=== PATIENT | female | born 1935 | race Caucasian/White ===

== ENCOUNTER 2016-11-22 10:00 | Outpatient (CLI) | payer MEDICARE, MEDICAID ==
[~2016-11-22] VITALS: Ht 157.5 cm; Wt 74.1 kg
[~2016-11-22 10:00] MED LIST: ACET-461 PO; ACET-789 PO; ACHD5005 PO; ALBU2.5V52 INH; ALBU8.5H2 IH; ALBU8.5H4 IH; ALPR-557 PO; ALPR.5T PO; ALPR0.25 PO; ALPR0.5T72 PO; ALPR1TAB PO; ALPR2TAB PO; ALPR2TAB9 PO; AMIO400T5 PO; AMLO10TA4 PO; AMLO10TA82 PO; AMX500CIP PO; ARIP2TAB3 PO; ARIP5TAB13 PO; ASP81TEC PO; ASPI-808 PO; ASPI-875 PO; AZTH250C PO; Amiodarone Hcl PO; BACL10TA PO; BENZ200C25 PO; BPR75T PO; BUDE10.2 IH; BUDE6HFA IH; BUPR300T51 PO; CELEXA; CEPH500C PO; CIPR500T78 PO; CITA-105 PO; CITA20TA7 PO; CLON1TAB2 PO; CLON1TAB3; CLON1TAB3 PO; DOXY100C2 PO; DULO60CA6 PO; FLUT1DIS26 IH; FRSM20T PO; FURO20TA4 PO; FURO40TA PO; GABA-488 PO; GABA-490 PO; GBPN100C PO; HCT25T PO; HYDR-229 PO; HYDR-2890; HYDR1TAB PO; HYDR1TAB66 PO; HYDR50TA3 PO; KCL20TCR PO; KLONIPIN PO; LASIX; LATUDA; LEVO500T69 PO; LEVO750T24 PO; LEVO750T6 PO; LISI10TA PO; LOPRESSOR; LORA1TAB PO; LOSA25TA5 PO; LSNP20T PO; MAGN400O7 PO; METF500T4 PO; METF500T8 PO; METO-451 PO; METO100T2 PO; METO50TA2 PO; MORP15TA30 PO; MORP15TA4 PO; MORP30CA16 PO; MTF500T PO; Metoprolol Tartrate PO; NAPR-243 PO; OMEG1CAP51 PO; ONDA-42 SL; ONDA4TAB10 PO; OXYC-465 PO; OXYC1TAB16 PO; OXYCODONE; Oxycodone Hcl PO; POLY119P5 PO; POTA20TA15 PO; PRCD5U PO; PRD10T PO; PRD20T PO; Prednisone PO; QTP100T PO; QUET200T2 PO; QUET25TA33 PO; ROSU20TA PO; ROSU20TA14 PO; ROSU5TAB PO; RT-ALBUINH IH; SIMV40TA2 PO; TAMS0.4C2 PO; TAMS0.4C9 PO; TIOT18CA IH; TRAM50TA2 PO; TRAZ-28 PO; TRM50T PO; [UNRECOGNIZED DRUG - CODE] PO
[2016-11-22] MEDS ORDERED: POLY119P5 PO (12:58)
[2016-11-22] MEDS ORDERED: FESO4TAB PO (12:58)
== END 2016-11-22 13:00 ==
LOC: PREOP 10:00
PROVIDERS: ATTEND Urology
DX: Z01.818 Encounter for other preprocedural examination (principal); N36.42 Intrinsic sphincter deficiency (ISD); R32 Unspecified urinary incontinence

== ENCOUNTER 2016-11-27 06:58 | Day surgery (SDC) | payer MEDICARE, MEDICAID ==
[~2016-11-27] VITALS: Ht 157.5 cm; Wt 74.1 kg
[~2016-11-27 06:58] MED LIST changes: +FESO4TAB PO
[2016-11-27] MEDS: LACTATED RINGERS 1,000 ML IV SCH ×3 (07:00→21:00)
--- NOTE | 2016-11-27 07:14 | Progress Note-Pre Operative ---
Pre-Operative Progress Note H&P Reviewed The H&P was reviewed, patient examined and no changes noted. Date H&P Reviewed: Nov 27, 2016 Time H&P Reviewed: 07:13 Pre-Operative Diagnosis: Incontinence, OAB, ISD LUL NORWOOD MD Nov 27, 2016 7:14 am
--- NOTE | 2016-11-27 07:14 | Progress Note-Post Operative ---
Post-Operative Progess Note Pre-Operative Diagnosis Incontinence, OAB, ISD Post-Operative Diagnosis same Post-Op Procedure Note Date of Procedure: Nov 27, 2016 Name of Procedure: PVS, Cysto Anesthesia Type general Estimated blood loss (mL): less than 50cc Specimen(s) collected none to path LUL NORWOOD MD Nov 27, 2016 7:14 am
[2016-11-27] MEDS ORDERED: LEVOFLOXACIN 250 MG/50 ML IVPB 50 ML ONE (07:21)
[2016-11-27 07:48] VITALS: BP 153/84
[2016-11-27] MEDS ORDERED: LACTATED RINGERS 1,000 ML IV PRN (08:07)
[2016-11-27] MEDS ORDERED: LIDOCAINE/EPI 1%-1:100,000 (XYLOCAINE) 20ML ONE (08:45)
[2016-11-27] MEDS ORDERED: ESTRADIOL VAGINAL CREAM 42.5 GM (ESTRACE) VG ONE (08:52)
[2016-11-27] MEDS ORDERED: oxyCODONE/APAP 10/325MG (PERCOCET 10) TABLET PO PRN (09:00)
[2016-11-27] MEDS ORDERED: MIDAZOLAM 2 MG/2 ML (VERSED) VIAL ONE (09:00)
[2016-11-27] MEDS ORDERED: guaiFENesin/DM (ROBITUSSIN DM) 10 ML UDC PO PRN (09:00)
[2016-11-27] MEDS ORDERED: KCL 20 MEQ TAB (K-DUR) PO SCH (09:00)
[2016-11-27] MEDS ORDERED: FUROSEMIDE 20 MG (LASIX) TAB PO SCH (09:00)
[2016-11-27] MEDS: GABAPENTIN 400 MG (NEURONTIN) CAP PO SCH ×3 (09:00→20:47)
[2016-11-27] MEDS ORDERED: ACETAMINOPHEN 500 MG TAB (TYLENOL) PO PRN (09:00)
[2016-11-27] MEDS ORDERED: LACTATED RINGERS 1,000 ML IV ONE (09:07)
[2016-11-27] MEDS ORDERED: LIDOCAINE PF 2% 10 ML (XYLOCAINE) AMP ONE (09:07)
[2016-11-27] MEDS ORDERED: SEVOFLURANE (ULTANE) 15 ML INHAL SOLN ONE (09:07)
[2016-11-27] MEDS ORDERED: proPOfol 200 MG/20 ML (DIPRIVAN) VIAL IV ONE (09:07)
[2016-11-27] MEDS ORDERED: ONDANSETRON 4 MG/2 ML (SDV) Z0FRAN ONE (09:07)
[2016-11-27] MEDS ORDERED: fentaNYL INJECTION 100 MCG/2 ML AMP ONE (09:08)
[2016-11-27] MEDS ORDERED: MIDAZOLAM 2 MG/2 ML (VERSED) VIAL IV ONE (09:10)
[2016-11-27] MEDS ORDERED: morphine INJ 10 MG/ML 1ML (SYR OR VIAL) ONE (10:37)
[2016-11-27] MEDS ORDERED: ONDANSETRON 4 MG/2 ML (SDV) Z0FRAN IVP PRN (10:45)
[2016-11-27] MEDS: morphine INJ 10 MG/ML 1ML (SYR OR VIAL) IVP PRN ×2 (10:49→10:51)
[2016-11-27] MEDS ORDERED: HYDROmorphone (DILAUDID) 2 MG/ML VIAL IVP PRN (11:15)
[2016-11-27 12:00] VITALS: BP 167/79
[2016-11-27] MEDS: HYDROcodone/APAP 10 MG/325 MG (LORTAB) TAB PO PRN ×3 (12:02→21:04)
[2016-11-27] MEDS: meTOprolol TARTRATE 50 MG (LOPRESSOR) TAB PO SCH ×2 (12:50→20:47)
[2016-11-27] MEDS: metFORMIN XR 500 MG (GLUCOPHAGE XR) TAB PO SCH (13:26)
--- NOTE | 2016-11-27 14:24 | OPERATIVE REPORT ---
PROCEDURE PHYSICIAN: LUL NORWOOD DATE OF PROCEDURE: 11/27/2016 PREOPERATIVE DIAGNOSIS: 1. Mixed urinary incontinence. 2. ISD. 3. Overactive bladder. POSTOPERATIVE DIAGNOSIS: 1. Mixed urinary incontinence. 2. ISD. 3. Overactive bladder. OPERATION: Pubovaginal sling and cystoscopy. SURGEON: Erika ANESTHESIA: General. COMPLICATIONS: None. PROCEDURE: Under satisfactory general anesthesia, the patient in extended lithotomy position, the genitalia were prepped and draped in usual sterile fashion. The catheter was inserted and the bladder was drained. The anterior vaginal wall was infiltrated with lidocaine and epinephrine. A midline incision was made for couple of centimeters, over the mid urethra. Dissection was carried toward the pubic arch. The Solyx pubovaginal sling was passed on both sides using the described technique. It was sitting nicely under the mid urethra with no tension, no twist and passage of a curved hemostat easily between it and the underlying urethra. The catheter was removed and cystoscopy was done to confirm the integrity of the bladder, ureters, and urethra and presence of the sling under the mid urethra. The bladder was left half full to perform a manual Valsalva maneuver that was negative. The catheter was reinserted draining again clear fluid. The vaginal mucosa was approximated with interrupted 2-0 Vicryl because it was pretty thin from previous surgeries. Closure was complete. The hemostasis was complete Premarin vaginal pack was inserted. Needle, sponge, and instruments counts were correct x2. Estimated blood loss less than 50 mL, none of which was replaced. The patient tolerated the procedure and anesthesia well and was sent to the recovery room in stable condition. Job ID: [id number] Dictated Date: 11/27/2016 10:17:40 Oven Laborer Date: 11/27/2016 13:49:38 / carol
[2016-11-27 16:00] VITALS: BP 142/66
[2016-11-27 20:21] VITALS: BP 134/57
[2016-11-27] MEDS ORDERED: traZODone 50 MG (DESYREL) TAB PO SCH (21:00)
[2016-11-27] MEDS ORDERED: ROSUVASTATIN 20 MG (CRESTOR) TABLET PO SCH (21:00)
[2016-11-28] VITALS: BP 121/65
[2016-11-28 04:00] VITALS: BP 107/59
[2016-11-28] MEDS: HYDROcodone/APAP 10 MG/325 MG (LORTAB) TAB PO PRN ×3 (04:36→12:52)
[2016-11-28] MEDS: LACTATED RINGERS 1,000 ML IV SCH (07:14)
[2016-11-28] MEDS ORDERED: LEVOFLOXACIN 250 MG/50 ML IVPB 50 ML IV SCH (07:14)
[2016-11-28 08:00] VITALS: BP 116/66
--- NOTE | 2016-11-28 08:09 | Progress Note-Urology ---
Progress Note-Urology Progress Notes/Assess & Plan Progress/Assessment & Plan Afebrile, VSS. Askew out, TOV and manage accordingly Final Diagnosis Incontinence, ISD, OAB LUL NORWOOD MD Nov 28, 2016 8:09 am
[2016-11-28 12:00] VITALS: BP 198/89
[2016-11-28] MEDS: metFORMIN XR 500 MG (GLUCOPHAGE XR) TAB PO SCH (12:57)
[2016-11-28] MEDS: GABAPENTIN 400 MG (NEURONTIN) CAP PO SCH (12:57)
[2016-11-28] MEDS: meTOprolol TARTRATE 50 MG (LOPRESSOR) TAB PO SCH (12:58)
[2016-11-28 16:00] VITALS: BP 168/88
[2016-11-28] MEDS ORDERED: HYDR-3874 PO (16:06)
[2016-11-28] MEDS ORDERED: CIPR-226 PO (16:06)
== END 2016-11-28 16:00 | disposition home or self-care (01) ==
LOC: SDC 06:58 → 4TH 11:41 → SDC 11-28 16:00
PROVIDERS: ATTEND Urology
DX: N36.42 Intrinsic sphincter deficiency (ISD) (principal); N39.46 Mixed incontinence; N32.81 Overactive bladder; E11.9 Type 2 diabetes mellitus without complications; Z79.84 Long term (current) use of oral hypoglycemic drugs
CPT/HCPCS: 82962; 87081; 93005; 94664

== ENCOUNTER 2017-02-06 09:39 | Outpatient (CLI) | payer MEDICARE, MEDICAID ==
[~2017-02-06] VITALS: Ht 157.5 cm; Wt 74.1 kg
[~2017-02-06 09:39] MED LIST changes: +CIPR-226 PO; +HYDR-3874 PO
[2017-02-06] MEDS ORDERED: ATOR40TA PO (13:53)
[2017-02-06] MEDS ORDERED: POLY17PO6 PO (13:53)
[2017-02-06] MEDS ORDERED: ASPI-808 PO (13:53)
== END 2017-02-06 13:57 ==
LOC: PREOP 09:39
PROVIDERS: ATTEND Urology
DX: Z01.818 Encounter for other preprocedural examination (principal); N36.42 Intrinsic sphincter deficiency (ISD); N39.46 Mixed incontinence; N32.81 Overactive bladder

== ENCOUNTER 2017-02-12 05:56 | Day surgery (SDC) | payer MEDICARE, MEDICAID ==
[~2017-02-12] VITALS: Ht 157.5 cm; Wt 74.1 kg
[~2017-02-12 05:56] MED LIST changes: +ATOR40TA PO; +POLY17PO6 PO
[2017-02-12] MEDS ORDERED: LEVOFLOXACIN 250 MG/50 ML IVPB 50 ML ONE (06:17)
[2017-02-12] MEDS ORDERED: LACTATED RINGERS 1,000 ML IV PRN (06:38)
[2017-02-12] MEDS ORDERED: FAMOTIDINE 20MG/2ML IV (PEPCID) IV ONE (06:45)
[2017-02-12] MEDS ORDERED: LIDOCAINE JELLY 2% (XYLOCAINE) 5 ML TUBE ONE (06:46)
[2017-02-12] MEDS ORDERED: proPOfol 200 MG/20 ML (DIPRIVAN) VIAL IV ONE (06:46)
[2017-02-12] MEDS ORDERED: LIDOCAINE PF 2% 10 ML (XYLOCAINE) AMP ONE (06:47)
[2017-02-12] MEDS ORDERED: ONDANSETRON 4 MG/2 ML (SDV) Z0FRAN ONE (06:47)
[2017-02-12] MEDS ORDERED: MIDAZOLAM 2 MG/2 ML (VERSED) VIAL ONE (06:47)
[2017-02-12] MEDS ORDERED: fentaNYL INJECTION 100 MCG/2 ML AMP ONE (06:47)
[2017-02-12 07:14] VITALS: BP 142/66
--- NOTE | 2017-02-12 07:14 | Progress Note-Pre Operative ---
Pre-Operative Progress Note H&P Reviewed The H&P was reviewed, patient examined and no changes noted. Date H&P Reviewed: Feb 12, 2017 Time H&P Reviewed: 07:14 Pre-Operative Diagnosis: INCONTINENCE, OAB, ISD LUL NORWOOD MD Feb 12, 2017 7:14 am
[2017-02-12] MEDS ORDERED: LEVOFLOXACIN 250 MG/D5W 50 ML (PRE-MIX) IV ONE (07:15)
[2017-02-12] MEDS ORDERED: CATHETER FLUSH 10 ML SYR IV PRN (07:15)
--- NOTE | 2017-02-12 07:15 | Progress Note-Post Operative ---
Post-Operative Progess Note Surgeon (s)/Fur Stretcher (s) Surgeon LUL NORWOOD MD Fur Stretcher: NONE Pre-Operative Diagnosis INCONTINENCE, OAB, ISD Post-Operative Diagnosis SAME Post-Op Procedure Note Date of Procedure: Feb 12, 2017 Name of Procedure Performed: CYSTO AND MACROPLASTIQUE IMPLANT Description of the Procedure: MACROPLASTIQUE INJECTED AT 6, 2 AND 10 O'CLOCK Findings of the Procedure INCOMPETENT SPHINCTER Anesthesia Type GENERAL Estimated blood loss (mL): NONE Packing: NONE Specimen(s) collected/removed NONE LUL NORWOOD MD Feb 12, 2017 7:15 am
--- NOTE | 2017-02-12 07:17 | Discharge Inst-Urology ---
Discharge Inst-Urology Discharge Medications New, Converted, or Re-newed RX: RX on Chart Patient Instructions/Follow Up Plan Please make appointment to been seen in office in 4 week. Stay off ASA, may resume in 48hrs if no bleeding Increase oral fluids for 48 hours and then as needed. Diet and Activity as tolerated. If questions or concerns contact your physician Or seek help at emergency department. LUL NORWOOD MD Feb 12, 2017 7:17 am
[2017-02-12] MEDS ORDERED: morphine INJ 10 MG/ML 1ML (SYR OR VIAL) IVP PRN (07:45)
[2017-02-12] MEDS ORDERED: ONDANSETRON 4 MG/2 ML (SDV) Z0FRAN IVP PRN (07:45)
[2017-02-12] MEDS ORDERED: MEPERIDINE (DEMEROL) INJ 50 MG/ML IVP PRN (07:45)
[2017-02-12] MEDS ORDERED: SEVOFLURANE (ULTANE) 15 ML INHAL SOLN ONE (07:55)
[2017-02-12] MEDS ORDERED: PHENAZOPYRIDINE 100 MG (PYRIDIUM) TABLET ONE (08:59)
[2017-02-12 09:00] VITALS: BP 122/61
[2017-02-12] MEDS ORDERED: PHENAZOPYRIDINE 100 MG (PYRIDIUM) TABLET PO ONE (09:15)
[2017-02-12] MEDS ORDERED: PHEN-639 PO (09:16)
[2017-02-12] MEDS ORDERED: NITR-65 PO (09:16)
[2017-02-12 09:30] VITALS: BP 170/90
--- NOTE | 2017-02-12 09:51 | OPERATIVE REPORT ---
PROCEDURE PHYSICIAN: LUL NORWOOD DATE OF PROCEDURE: 02/12/2017 PREOPERATIVE DIAGNOSIS: Mixed incontinence with ISD and overactive bladder. POSTOPERATIVE DIAGNOSIS: Mixed incontinence with ISD and overactive bladder. OPERATION PERFORMED: 1. Cystoscopy. 2. Macroplastique implant. SURGEON: Dr. Norwood. ANESTHESIA: General. COMPLICATIONS: None. PROCEDURE: Under satisfactory general anesthesia, the patient in lithotomy position, the genitalia were prepped and draped in usual sterile fashion. Cystoscope was introduced in the bladder which was emptied. Macroplastique implant was injected at 6, 10 and 2 o'clock position using the described technique. Full syringe at 6 o'clock and half a syringe at 2 and 10. There was complete coaptation of the mid urethra. Leaving the bladder full, I performed a manual Valsalva maneuver that was negative. I emptied the bladder with the scope and removed the cystoscope. The patient tolerated the procedure and anesthesia well and was sent to recovery room in stable condition. Estimated blood loss 0. Job ID: [id number] Dictated Date: 02/12/2017 08:02:04 Fitness Manager Date: 02/12/2017 09:48:12 / kp
[2017-02-12 10:00] VITALS: BP 158/84
--- OUTSIDE RECORDS SUMMARY | 2017-02-26 19:51 | XMS REPORT ---
Author Author SHANIQUE VEGA Organization [employer] Address Unknown Phone Unavailable Care Team Providers Care Clinical Pharmacy Coordinator Name Role Phone SHANIQUE VEGA CP Unavailable Allergies No Known Allergies Problems Problem Type Condition Code Onset Dates Condition Status Problem Hypertension I10 Active Problem Coronary artery disease I25.10 Active Problem Hyperlipidemia E78.5 Active Problem Major depressive disorder, single episode, unspecified 296.20 Active Problem Other and unspecified hyperlipidemia 272.4 Active Problem Anxiety state, unspecified 300.00 Active Problem Unspecified peripheral vascular disease 443.9 Active Medications Medication Code System Code Instructions Start Date End Date Status Dosage MS Contin [facility] [address]-67 30 MG Orally every 12 hrs June 01, 2016 1 tablet Results No Known Results Summary Purpose eClinicalWorks Submission
--- OUTSIDE RECORDS SUMMARY | 2017-02-26 19:51 | XMS REPORT ---
Author Author SHANIQUE VEGA Organization [employer] Address Unknown Phone Unavailable Care Team Providers Care Manager Fitness Name Role Phone SHANIQUE VEGA CP Unavailable Allergies No Known Allergies Problems Problem Type Condition Code Onset Dates Condition Status Assessment Other chronic pain G89.29 Active Problem Hypertension I10 Active Problem Coronary artery disease I25.10 Active Problem Hyperlipidemia E78.5 Active Problem Major depressive disorder, single episode, unspecified 296.20 Active Problem Other and unspecified hyperlipidemia 272.4 Active Problem Anxiety state, unspecified 300.00 Active Problem Unspecified peripheral vascular disease 443.9 Active Medications Medication Code System Code Instructions Start Date End Date Status Dosage Morphine Sulfate [facility] [address]-63 15 MG Orally, shelter pt every 6 hrs Dec 07, 2015 1 tablet as needed Results No Known Results Summary Purpose [employer]ClinicalWorks Submission
--- OUTSIDE RECORDS SUMMARY | 2017-02-26 19:51 | XMS REPORT ---
Author Author SHANIQUE VEGA Organization [employer] Address Unknown Phone Unavailable Care Team Providers Care Telephonic Rn Name Role Phone SHANIQUE VEGA CP Unavailable [...] Unspecified peripheral vascular disease 443.9 Active Medications No Known Medications Results No Known Results Summary Purpose [employer] Submission
--- OUTSIDE RECORDS SUMMARY | 2017-02-26 19:53 | XMS REPORT ---
Author Author SHANIQUE VEGA [facility] e[employer] Address Unknown Phone Unavailable Care Team Providers Care Flatwork Finisher Hand Name Role Phone SHANIQUE VEGA CP Unavailable Allergies No Known Allergies Problems Problem Type Condition Code Onset Dates Condition Status Problem Coronary artery disease I25.10 Active Problem Anxiety state, unspecified 300.00 Active Problem Hypertension I10 Active Problem Other and unspecified hyperlipidemia 272.4 Active Problem Unspecified peripheral vascular disease 443.9 Active Problem Major depressive disorder, single episode, unspecified 296.20 Active Medications Medication Code System Code Instructions Start Date End Date Status Dosage Morphine Sulfate [facility] [address]-52 30 MG Orally 2 times a day PT [facility] Jul 18, 2015 1 tablet as needed Results No Known Results Summary Purpose [employer]ClinicalWorks Submission
--- OUTSIDE RECORDS SUMMARY | 2017-02-26 19:53 | XMS REPORT ---
Author Author SHANIQUE VEGA Organization [employer] Address Unknown Phone Unavailable Care Team Providers Care Meal Attendant Name Role Phone SHANIQUE VEGA CP Unavailable [...]
--- OUTSIDE RECORDS SUMMARY | 2017-02-26 19:53 | XMS REPORT ---
Author Author SHANIQUE VEGA Organization [employer] Address Unknown Phone Unavailable Care Team Providers Care Scrap Handler Name Role Phone SHANIQUE VEGA CP Unavailable [...] Date End Date Status Dosage Morphine Sulfate [facility] [address]-11 30 MG Orally 2 times a day PT IN [facility] Jul 18, 2015 1 tablet as needed Results No Known Results Summary Purpose [employer]ClinicalWorks Submission
--- OUTSIDE RECORDS SUMMARY | 2017-02-26 19:53 | XMS REPORT ---
Author Author SHANIQUE VEGA Organization [employer] Address Unknown Phone Unavailable Care Team Providers Care Brass Reclaimer Name Role Phone SHANIQUE VEGA CP Unavailable Allergies No Known Allergies Problems Problem Type Condition Code Onset Dates Condition Status Assessment Arthritis M19.90 Active Problem Hypertension I10 Active Problem Coronary artery disease I25.10 Active Problem Hyperlipidemia E78.5 Active Problem Major depressive disorder, single episode, unspecified 296.20 Active Problem Other and unspecified hyperlipidemia 272.4 Active Problem Anxiety state, unspecified 300.00 Active Problem Unspecified peripheral vascular disease 443.9 Active Medications Medication Code System Code Instructions Start Date End Date Status Dosage Morphine Sulfate [facility] [address]-49 30 MG Orally 2 times a day PT IN [facility] Jul 18, 2015 1 tablet as needed Results No Known Results Summary Purpose eClinicalWorks Submission
--- OUTSIDE RECORDS SUMMARY | 2017-02-26 19:53 | XMS REPORT ---
Author Author SHANIQUE VEGA [facility] e[employer] Address Unknown Phone Unavailable Care Team Providers Care Chemist Intern Name Role Phone SHANIQUE VEGA CP Unavailable Allergies No Known Allergies Problems Problem Type Condition Code Onset Dates Condition Status Problem Other chronic pain G89.29 Active Problem Hyperlipidemia E78.5 Active Problem Low back pain M54.5 Active Problem Hypertension I10 Active Problem Coronary artery disease I25.10 Active Medications Medication Code System Code Instructions Start Date End Date Status Dosage Morphine Sulfate [facility] [address]-13 30 MG Orally 2 times a day PT IN [facility] Jul 18, 2015 1 tablet Results No Known Results Summary Purpose eClinicalWorks Submission
--- OUTSIDE RECORDS SUMMARY | 2017-02-26 19:54 | XMS REPORT ---
Author Author SHARIF JOHNSON [facility] e[employer] Address Unknown Phone Unavailable Care Team Providers Care Canary Breeder Name Role Phone SHARIF JOHNSON Unavailable Allergies No Known Allergies Problems Problem Type Condition Code Onset Dates Condition Status Problem Coronary artery disease I25.10 Active Problem Anxiety state, unspecified 300.00 Active Problem Hypertension I10 Active Problem Other and unspecified hyperlipidemia 272.4 Active Assessment Other chronic pain G89.29 Active Problem Unspecified peripheral vascular disease 443.9 Active Problem Major depressive disorder, single episode, unspecified 296.20 Active Medications Medication Code System Code Instructions Start Date End Date Status Dosage Morphine Sulfate [facility] [address]-91 15 MG Orally, [facility] pt every 6 hrs Dec 07, 2015 1 tablet as needed Results No Known Results Summary Purpose eClinicalWorks Submission
--- OUTSIDE RECORDS SUMMARY | 2017-02-26 19:55 | XMS REPORT ---
Author Author SHANIQUE VEGA [facility] eClinical[employer] Address Unknown Phone Unavailable Care Team Providers Care Patient Monitor Name Role Phone SHANIQUE VEGA CP Unavailable Allergies No Known Allergies Problems Problem Type Condition Code Onset Dates Condition Status Problem Other chronic pain G89.29 Active Problem Hyperlipidemia E78.5 Active Problem Low back pain M54.5 Active Problem Hypertension I10 Active Problem Coronary artery disease I25.10 Active Medications Medication Code System Code Instructions Start Date End Date Status Dosage Keflex [facility] [address]-67 250 MG Orally 3 times a day Jul 19, 2016Jul 1 capsule Results No Known Results Summary Purpose eClinicalWorks Submission
--- OUTSIDE RECORDS SUMMARY | 2017-02-26 19:55 | XMS REPORT ---
Author Author SHANIQUE VEGA Organization [employer] Address Unknown Phone Unavailable Care Team Providers Care Outdoor Power Equipment Mechanic Name Role Phone SHANIQUE VEGA CP Unavailable Allergies No Known Allergies Problems Problem Type Condition Code Onset Dates Condition Status Problem Other chronic pain G89.29 Active Problem Hyperlipidemia E78.5 Active Problem Low back pain M54.5 Active Problem Hypertension I10 Active Problem Coronary artery disease I25.10 Active Medications No Known Medications Results No Known Results Summary Purpose eClinicalWorks Submission
--- OUTSIDE RECORDS SUMMARY | 2017-02-26 19:58 | XMS REPORT ---
Author Author SHANIQUE VEGA [facility] Address [address] [place] [address] Care Team Providers Care Statistical Secretary Name Role Phone SHANIQUE VEGA Unavailable PROBLEMS Type Condition ICD9-CM Code VOC40-GI Code Onset Dates Condition Status SNOMED Code Problem Low back pain M54.5 Active 449030943 Problem Other chronic pain G89.29 Active 11096146 Problem Coronary artery disease I25.10 Active 19556492 Problem Hyperlipidemia E78.5 Active 54901517 Problem Hypertension I10 Active 34461678 ALLERGIES Unknown Allergies SOCIAL HISTORY No smoking Hx information available PLAN OF CARE VITAL SIGNS MEDICATIONS Medication Instructions Dosage Frequency Start Date End Date Duration Status Morphine Sulfate ER 30 MG Orally every 12 hrs (PT IN [facility]ILITY) 1 tablet 12 Jul, 2016 10 Aug, 2016 28 days Active RESULTS No Results PROCEDURES No Known procedures IMMUNIZATIONS No Known Immunizations
--- OUTSIDE RECORDS SUMMARY | 2017-02-26 19:58 | XMS REPORT ---
Author Author SHANIQUE VEGA [facility] eClinicalWorks Address Unknown Phone Unavailable Care Team Providers Care Swahili Teacher Name Role Phone SHANIQUE VEGA CP Unavailable Allergies No Known Allergies Problems Problem Type Condition ICD-9 Code Onset Dates Condition Status Problem Coronary atherosclerosis of unspecified type of vessel, [place] or graft 414.00 Active Problem Other and unspecified hyperlipidemia 272.4 Active Problem Essential hypertension, benign 401.1 Active Problem Other chronic pain 338.29 Active Problem Anxiety state, unspecified 300.00 Active Problem Occlusion and stenosis of carotid artery without mention of cerebral infarction 433.10 Active Problem Major depressive disorder, single episode, unspecified 296.20 Active Problem Unspecified peripheral vascular disease 443.9 Active Problem Unspecified essential hypertension 401.9 Active Medications Medication Code System Code Instructions Start Date End Date Status Dosage Morphine Sulfate [facility] [address]-14 30 MG Orally 2 times a day PT IN [facility] Jul 18, 2015 1 tablet as needed Results No Known Results Summary Purpose eClinicalWorks Submission
--- OUTSIDE RECORDS SUMMARY | 2017-02-26 19:58 | XMS REPORT ---
Author Author SHANIQUE VEGA [facility] eClinical[employer] Address Unknown Phone Unavailable Care Team Providers Care Semiconductor Packages Tester Name Role Phone SHANIQUE VEGA CP Unavailable [...] Date End Date Status Dosage Morphine Sulfate [facility] [address]-11 30 MG Orally 2 times a day PT IN [facility] Jul 18, 2015 1 tablet as needed Results No Known Results Summary Purpose eClinicalWorks Submission
--- OUTSIDE RECORDS SUMMARY | 2017-02-26 19:58 | XMS REPORT ---
Author Author SHANIQUE VGEA Organization [employer] Address Unknown Phone Unavailable Care Team Providers Care Insole Stiffener Name Role Phone SHANIQUE VEGA CP Unavailable [...]
--- OUTSIDE RECORDS SUMMARY | 2017-02-26 19:58 | XMS REPORT ---
Author Author SHANIQUE VEGA [facility] eClinical[employer] Address Unknown Phone Unavailable Care Team Providers Care All Round Butcher Name Role Phone SHANIQUE VEGA CP Unavailable Allergies No Known Allergies Problems Problem Type Condition ICD-9 Code Onset Dates Condition Status Assessment Essential hypertension, benign 401.1 Active Problem Coronary atherosclerosis of unspecified type of vessel, [place] or graft 414.00 Active Problem Other and unspecified hyperlipidemia 272.4 Active Assessment Chronic airway obstruction, not elsewhere classified 496 Active Assessment Other chronic pain 338.29 Active Problem Essential hypertension, benign 401.1 Active [...] Date End Date Status Dosage Morphine Sulfate [facility] [address]-94 60 MG Orally every 12 hrs Jul 07, 2015 1 capsule Procedures Procedure Coding System Code Date Minor complication (15 mins) CPT-4 87782 Jul 07, 2015 Results No Known Results Summary Purpose eClinicalWorks Submission
--- OUTSIDE RECORDS SUMMARY | 2017-02-26 20:06 | XMS REPORT | Continuity of Care Document ---
Author Author [facility] Address Unknown Phone Unavailable Allergies Active Description Code Type Severity Reaction Onset Reported/Identified Relationship to Patient Clinical Status Yes Cymbalta Drug Allergy N/A N/A 11/06/2011 Yes Cymbalta Drug Allergy 11/06/2011 Yes sulfa drug Drug Allergy 11/06/2011 Yes Chantix 1 mg tablet Drug Allergy N/A N/A 01/08/2012 Yes Chantix 1 mg tablet Drug Allergy 01/08/2012 Yes levofloxacin 750 mg tablet Drug Allergy N/A N/A 09/23/2012 Yes levofloxacin 750 mg tablet Drug Allergy 09/23/2012 Yes hydrochlorothiazide 50 mg tablet Drug Allergy N/A N/A 05/06/2013 Yes lisinopril 10 mg tablet Drug Allergy N/A N/A 05/19/2013 Yes diphenhydramine HCl [id number] Drug Allergy Unknown N/A 05/14/2016 Yes hydrochlorothiazide [id number] Drug Allergy Unknown N/A 05/14/2016 Yes varenicline tartrate [id number] Drug Allergy Unknown N/A 05/14/2016 Yes Sulfa (Sulfonamide Antibiotics) [id number] Drug Allergy Unknown N/A 02/06/2017 Medications Problems Date Dx Coded Attending Type Code Diagnosis Diagnosed By 07/17/2011 Ot 724.2 07/30/2011 Ot 724.2 10/06/2011 Ot 305.1 10/06/2011 Ot 491.20 10/06/2011 Ot 786.2 10/09/2011 Ot 300.00 10/09/2011 Ot 311 10/09/2011 Ot V58.69 10/21/2011 Ot 272.4 10/21/2011 Ot 300.00 10/21/2011 Ot 305.1 10/21/2011 Ot 309.81 10/21/2011 Ot 311 10/21/2011 Ot 397.0 10/21/2011 Ot 401.9 10/21/2011 Ot 414.01 10/21/2011 Ot 424.0 10/21/2011 Ot 447.9 10/21/2011 Ot 491.21 10/21/2011 Ot 790.29 10/21/2011 Ot 794.5 10/21/2011 Ot E932.0 10/21/2011 Ot V17.3 11/06/2011 246.9 UNSPECIFIED DISORDER OF THYROID 11/06/2011 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 11/06/2011 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 11/06/2011 496 CHRONIC OBSTRUCTIVE PULMONARY DISEASE 11/06/2011 683 ACUTE LYMPHADENITIS 11/06/2011 SHANIQUE VEGA MD 246.9 UNSPECIFIED DISORDER OF THYROID 11/06/2011 SHANIQUE VEGA MD 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 11/06/2011 SHANIQUE VEGA MD 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 11/06/2011 SHANIQUE VEGA MD 496 CHRONIC OBSTRUCTIVE PULMONARY DISEASE 11/06/2011 SHANIQUE VEGA MD 683 ACUTE LYMPHADENITIS 11/06/2011 246.9 UNSPECIFIED DISORDER OF THYROID 11/06/2011 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 11/06/2011 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 11/06/2011 496 CHRONIC OBSTRUCTIVE PULMONARY DISEASE 11/06/2011 683 ACUTE LYMPHADENITIS 11/06/2011 ILIR DO MIKE K 246.9 UNSPECIFIED DISORDER OF THYROID 11/06/2011 HAZEL DO, MIKE K 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 11/06/2011 HAZEL DO, MIKE K 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 11/06/2011 HAZEL DO, MIKE K 496 CHRONIC OBSTRUCTIVE PULMONARY DISEASE 11/06/2011 HAZEL DO, MIKE K 683 ACUTE LYMPHADENITIS 11/06/2011 HAZEL DO, MIKE K 246.9 UNSPECIFIED DISORDER OF THYROID 11/06/2011 HAZEL DO, MIKE K 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 11/06/2011 HAZEL DO, MIKE K 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 11/06/2011 HAZEL DO, MIKE K 496 CHRONIC OBSTRUCTIVE PULMONARY DISEASE 11/06/2011 HAZEL DO, MIKE K 683 ACUTE LYMPHADENITIS 11/06/2011 MARIA DE JESUS BUTLER DO 246.9 UNSPECIFIED DISORDER OF THYROID 11/06/2011 MARIA DE JESUS BUTLER DO 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 11/06/2011 CARRIE VILLALOBOS MARIA DE JESUS F 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 11/06/2011 CARRIE VILLALOBOS MARIA DE JESUS F 496 CHRONIC OBSTRUCTIVE PULMONARY DISEASE 11/06/2011 CARRIE DO MARIA DE JESUS F 683 ACUTE LYMPHADENITIS 11/06/2011 CAROLINE MENDOZA MD 246.9 UNSPECIFIED DISORDER OF THYROID 11/06/2011 CAROLINE MENDOZA MD 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 11/06/2011 CAROLINE MENDOZA MD 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 11/06/2011 CAROLINE MENDOZA MD 496 CHRONIC OBSTRUCTIVE PULMONARY DISEASE 11/06/2011 CAROLINE MENDOZA MD 683 ACUTE LYMPHADENITIS 11/06/2011 CARRIE VILLALOBOS MARIA DE JESUS F 246.9 UNSPECIFIED DISORDER OF THYROID 11/06/2011 CARRIE VILLALOBOS MARIA DE JESUS F 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 11/06/2011 CARRIE VILLALOBOS MARIA DE JESUS F 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 11/06/2011 CARRIE VILLALOBOS MARIA DE JESUS F 496 CHRONIC OBSTRUCTIVE PULMONARY DISEASE 11/06/2011 CARRIE VILLALOBOS MARIA DE JESUS F 683 ACUTE LYMPHADENITIS 11/06/2011 CAROLINE MENDOZA MD 246.9 UNSPECIFIED DISORDER OF THYROID 11/06/2011 CAROLINE MENDOZA MD 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 11/06/2011 CAROLINE MENDOZA MD 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 11/06/2011 CAROLINE MENDOZA MD 496 CHRONIC OBSTRUCTIVE PULMONARY DISEASE 11/06/2011 CAROLINE MENDOZA MD 683 ACUTE LYMPHADENITIS 11/06/2011 246.9 UNSPECIFIED DISORDER OF THYROID 11/06/2011 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 11/06/2011 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 11/06/2011 496 CHRONIC OBSTRUCTIVE PULMONARY DISEASE 11/06/2011 683 ACUTE LYMPHADENITIS 11/06/2011 246.9 UNSPECIFIED DISORDER OF THYROID 11/06/2011 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 11/06/2011 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 11/06/2011 496 CHRONIC OBSTRUCTIVE PULMONARY DISEASE 11/06/2011 683 ACUTE LYMPHADENITIS 11/06/2011 246.9 UNSPECIFIED DISORDER OF THYROID 11/06/2011 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 11/06/2011 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 11/06/2011 496 CHRONIC OBSTRUCTIVE PULMONARY DISEASE 11/06/2011 683 ACUTE LYMPHADENITIS 11/06/2011 246.9 UNSPECIFIED DISORDER OF THYROID 11/06/2011 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 11/06/2011 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 11/06/2011 496 CHRONIC OBSTRUCTIVE PULMONARY DISEASE 11/06/2011 683 ACUTE LYMPHADENITIS 11/06/2011 246.9 UNSPECIFIED DISORDER OF THYROID 11/06/2011 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 11/06/2011 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 11/06/2011 496 CHRONIC OBSTRUCTIVE PULMONARY DISEASE 11/06/2011 683 ACUTE LYMPHADENITIS 11/06/2011 246.9 UNSPECIFIED DISORDER OF THYROID 11/06/2011 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 11/06/2011 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 11/06/2011 496 CHRONIC OBSTRUCTIVE PULMONARY DISEASE 11/06/2011 683 ACUTE LYMPHADENITIS 11/06/2011 246.9 UNSPECIFIED DISORDER OF THYROID 11/06/2011 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 11/06/2011 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 11/06/2011 496 CHRONIC OBSTRUCTIVE PULMONARY DISEASE 11/06/2011 683 ACUTE LYMPHADENITIS 11/06/2011 246.9 UNSPECIFIED DISORDER OF THYROID 11/06/2011 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 11/06/2011 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 11/06/2011 496 CHRONIC OBSTRUCTIVE PULMONARY DISEASE 11/06/2011 683 ACUTE LYMPHADENITIS 11/06/2011 246.9 UNSPECIFIED DISORDER OF THYROID 11/06/2011 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 11/06/2011 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 11/06/2011 496 CHRONIC OBSTRUCTIVE PULMONARY DISEASE 11/06/2011 683 ACUTE LYMPHADENITIS 11/06/2011 MARIA DE JESUS BUTLER DO 246.9 UNSPECIFIED DISORDER OF THYROID 11/06/2011 MARIA DE JESUS BUTLER DO F 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 11/06/2011 MARIA DE JESUS BUTLER DO F 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 11/06/2011 MARIA DE JESUS BUTLER DO F 496 CHRONIC OBSTRUCTIVE PULMONARY DISEASE 11/06/2011 MARIA DE JESUS BUTLER DO F 683 ACUTE LYMPHADENITIS 11/06/2011 REJI ROLDAN, CAROLINE M 246.9 UNSPECIFIED DISORDER OF THYROID 11/06/2011 CAROLINE MENDOZA MD M 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 11/06/2011 CAROLINE MENDOZA MD M 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 11/06/2011 CAROLINE MENDOZA MD M 496 CHRONIC OBSTRUCTIVE PULMONARY DISEASE 11/06/2011 CAROLINE MENDOZA MD M 683 ACUTE LYMPHADENITIS 11/06/2011 CAROLINE MENDOZA MD M 246.9 UNSPECIFIED DISORDER OF THYROID 11/06/2011 CAROLINE MENDOZA MD M 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 11/06/2011 CAROLINE MENDOZA MD M 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 11/06/2011 CAROLINE MENDOZA MD 496 CHRONIC OBSTRUCTIVE PULMONARY DISEASE 11/06/2011 CAROLINE MENDOZA MD M 683 ACUTE LYMPHADENITIS 11/06/2011 CAROLINE MENDOZA MD 246.9 UNSPECIFIED DISORDER OF THYROID 11/06/2011 CAROLINE MENDOZA MD M 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 11/06/2011 CAROLINE MENDOZA MD M 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 11/06/2011 CAROLINE MENDOZA MD M 496 CHRONIC OBSTRUCTIVE PULMONARY DISEASE 11/06/2011 CAROLINE MENDOZA MD M 683 ACUTE LYMPHADENITIS 11/06/2011 BAIG DESI BURGOSH 246.9 UNSPECIFIED DISORDER OF THYROID 11/06/2011 BAIG SOLAR APPLICATIONS DEVELOPMENT ENGINEERDESI Menjivar HOUSTON 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 11/06/2011 BAIG SOLAR APPLICATIONS DEVELOPMENT ENGINEERDESI HOUSTON 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 11/06/2011 BAIG SOLAR APPLICATIONS DEVELOPMENT ENGINEER, DESI [place] 496 CHRONIC OBSTRUCTIVE PULMONARY DISEASE 11/06/2011 BAIG SOLAR APPLICATIONS DEVELOPMENT ENGINEER, DESI [place] 683 ACUTE LYMPHADENITIS 11/06/2011 BAIG SOLAR APPLICATIONS DEVELOPMENT ENGINEER, DESI HOUSTON 246.9 UNSPECIFIED DISORDER OF THYROID 11/06/2011 BAIG SOLAR APPLICATIONS DEVELOPMENT ENGINEER, DESI HOUSTON 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 11/06/2011 BAIG SOLAR APPLICATIONS DEVELOPMENT ENGINEER, DESI HOUSTON 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 11/06/2011 BAIG SOLAR APPLICATIONS DEVELOPMENT ENGINEER, DESI [place]ON 496 CHRONIC OBSTRUCTIVE PULMONARY DISEASE 11/06/2011 BAIG SOLAR APPLICATIONS DEVELOPMENT ENGINEER, DESI [place]ON 683 ACUTE LYMPHADENITIS 11/06/2011 MARC SOLAR APPLICATIONS DEVELOPMENT ENGINEER, AUDIE R 246.9 UNSPECIFIED DISORDER OF THYROID 11/06/2011 MARC SOLAR APPLICATIONS DEVELOPMENT ENGINEER, AUDIE R 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 11/06/2011 TARI SOLAR APPLICATIONS DEVELOPMENT ENGINEER, AUDIE R 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 11/06/2011 MARC SOLAR APPLICATIONS DEVELOPMENT ENGINEER, AUDIE R 496 CHRONIC OBSTRUCTIVE PULMONARY DISEASE 11/06/2011 MARC SOLAR APPLICATIONS DEVELOPMENT ENGINEER, AUDIE R 683 ACUTE LYMPHADENITIS 11/06/2011 JIMMY WOODSN, SHAHNAZ S 246.9 UNSPECIFIED DISORDER OF THYROID 11/06/2011 JIMMY SOLAR APPLICATIONS DEVELOPMENT ENGINEER, SHAHNAZ S 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 11/06/2011 JIMMY SOLAR APPLICATIONS DEVELOPMENT ENGINEER, SHAHNAZ S 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 11/06/2011 JIMMY SOLAR APPLICATIONS DEVELOPMENT ENGINEER, SHAHNAZ S 496 CHRONIC OBSTRUCTIVE PULMONARY DISEASE 11/06/2011 JIMMY WOODSN, SHAHNAZ S 683 ACUTE LYMPHADENITIS 11/06/2011 MAX DHILLON APRN T 246.9 UNSPECIFIED DISORDER OF THYROID 11/06/2011 JACQUIE BURGOS MAX T 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 11/06/2011 JACQUIE BURGOS MAX T 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 11/06/2011 JACQUIE BURGOS MAX T 496 CHRONIC OBSTRUCTIVE PULMONARY DISEASE 11/06/2011 JACQUIE BURGOS MAX T 683 ACUTE LYMPHADENITIS 11/06/2011 MAX DHILLON APRN T 246.9 UNSPECIFIED DISORDER OF THYROID 11/06/2011 JACQUIE BURGOS MAX T 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 11/06/2011 AJCQUIE BURGOS MAX T 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 11/06/2011 JACQUIE BURGOS MAX T 496 CHRONIC OBSTRUCTIVE PULMONARY DISEASE 11/06/2011 JACQUIE BURGOS MAX T 683 ACUTE LYMPHADENITIS 11/06/2011 HAZEL DO, MIKE K 246.9 UNSPECIFIED DISORDER OF THYROID 11/06/2011 HAZEL DO, MIKE K 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 11/06/2011 HAZEL DO, MIKE K 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 11/06/2011 HAZEL DO, MIKE K 496 CHRONIC OBSTRUCTIVE PULMONARY DISEASE 11/06/2011 HAZEL DO, MIKE K 683 ACUTE LYMPHADENITIS 11/06/2011 CAROLINE MENDOZA MD 246.9 UNSPECIFIED DISORDER OF THYROID 11/06/2011 CAROLINE MENDOZA MD 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 11/06/2011 CAROLINE MENDOZA MD 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 11/06/2011 CAROLINE MENDOZA MD M 496 CHRONIC OBSTRUCTIVE PULMONARY DISEASE 11/06/2011 CAROLINE MENDOZA MD 683 ACUTE LYMPHADENITIS 11/06/2011 CAROLINE MENDOZA MD M 246.9 UNSPECIFIED DISORDER OF THYROID 11/06/2011 CAROLINE MENDOZA MD M 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 11/06/2011 CAROLINE MENDOZA MD 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 11/06/2011 CAROLINE MENDOZA MD 496 CHRONIC OBSTRUCTIVE PULMONARY DISEASE 11/06/2011 CAROLINE MENDOZA MD 683 ACUTE LYMPHADENITIS 11/06/2011 SHARIF JOHNSON MD N 246.9 UNSPECIFIED DISORDER OF THYROID 11/06/2011 SHARIF JOHNSON MD N 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 11/06/2011 SHARIF JOHNSON MD N 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 11/06/2011 SHARIF JOHNSON MD N 496 CHRONIC OBSTRUCTIVE PULMONARY DISEASE 11/06/2011 SHARIF JOHNSON MD N 683 ACUTE LYMPHADENITIS 11/06/2011 SHARIF JOHNSON MD N 246.9 UNSPECIFIED DISORDER OF THYROID 11/06/2011 SHARIF JOHNSON MD N 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 11/06/2011 SHARIF JOHNSON MD N 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 11/06/2011 SHARIF JOHNSON MD N 496 CHRONIC OBSTRUCTIVE PULMONARY DISEASE 11/06/2011 SHARIF JOHNSON MD N 683 ACUTE LYMPHADENITIS 11/06/2011 SHARIF JOHNSON MD N 246.9 UNSPECIFIED DISORDER OF THYROID 11/06/2011 SHARIF JOHNSON MD N 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 11/06/2011 SHARIF JOHNSON MD N 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 11/06/2011 SHARIF JOHNSON MD N 496 CHRONIC OBSTRUCTIVE PULMONARY DISEASE 11/06/2011 SHARIF JOHNSON MD N 683 ACUTE LYMPHADENITIS 11/06/2011 SHARIF JOHNSON MD N 246.9 UNSPECIFIED DISORDER OF THYROID 11/06/2011 GWEN JOHNSON MDY N 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 11/06/2011 ELIZABETH ROLDAN SHARIF N 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 11/06/2011 GWEN JOHNSON MDY N 496 CHRONIC OBSTRUCTIVE PULMONARY DISEASE 11/06/2011 GWEN JOHNSON MDY N 683 ACUTE LYMPHADENITIS 11/06/2011 ELIZABETH ROLDAN SHARIF N 246.9 UNSPECIFIED DISORDER OF THYROID 11/06/2011 SHARIF JOHNSON MD N 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 11/06/2011 ELIZABETH ROLDAN SHARIF N 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 11/06/2011 GWEN JOHNSON MDY N 496 CHRONIC OBSTRUCTIVE PULMONARY DISEASE 11/06/2011 SHARIF JOHNSON MD N 683 ACUTE LYMPHADENITIS 11/06/2011 JOVANNI BURGOS DESI HOUSTON 246.9 UNSPECIFIED DISORDER OF THYROID 11/06/2011 JOVANNI BURGOS DESI CONRAD 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 11/06/2011 JOVANNI BURGOS DESI HOUSTON 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 11/06/2011 JOVANNI BURGOS DESI HOUSTON 496 CHRONIC OBSTRUCTIVE PULMONARY DISEASE 11/06/2011 JOVANNI BURGOS DESI HOUSTON 683 ACUTE LYMPHADENITIS 11/06/2011 SHARIF JOHNSON MD N 246.9 UNSPECIFIED DISORDER OF THYROID 11/06/2011 SHARIF JOHNSON MD N 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 11/06/2011 ELIZABETH ROLDAN SHARIF N 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 11/06/2011 SHARIF JOHNSON MD N 496 CHRONIC OBSTRUCTIVE PULMONARY DISEASE 11/06/2011 ELIZABETH ROLDAN SHARIF N 683 ACUTE LYMPHADENITIS 11/06/2011 ELIZABETH ROLDAN SHARIF N 246.9 UNSPECIFIED DISORDER OF THYROID 11/06/2011 ELIZABETH ROLDAN SHARIF N 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 11/06/2011 ELIZABETH ROLDAN SHARIF N 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 11/06/2011 ELIZABETH ROLDAN SHARIF N 496 CHRONIC OBSTRUCTIVE PULMONARY DISEASE 11/06/2011 GWEN JOHNSON MDY N 683 ACUTE LYMPHADENITIS 11/06/2011 JOVANNI BURGOS DESI SINGHH 246.9 UNSPECIFIED DISORDER OF THYROID 11/06/2011 DESI BAIG APRN 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 11/06/2011 DESI BAIG APRN 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 11/06/2011 JOVANNI BURGOS, DESI CONRAD 496 CHRONIC OBSTRUCTIVE PULMONARY DISEASE 11/06/2011 DESI BAIG APRN 683 ACUTE LYMPHADENITIS 11/06/2011 SHARIF JOHNSON MD N 246.9 UNSPECIFIED DISORDER OF THYROID 11/06/2011 SHARIF JOHNSON MD N 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 11/06/2011 SHARIF JOHNSON MD N 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 11/06/2011 SHARIF JOHNSON MD N 496 CHRONIC OBSTRUCTIVE PULMONARY DISEASE 11/06/2011 SHARIF JOHNSON MD N 683 ACUTE LYMPHADENITIS 11/06/2011 SHARIF JOHNSON MD N 246.9 UNSPECIFIED DISORDER OF THYROID 11/06/2011 SHARIF JOHNSON MD N 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 11/06/2011 SHARIF JOHNSON MD N 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 11/06/2011 SHARIF JOHNSON MD N 496 CHRONIC OBSTRUCTIVE PULMONARY DISEASE 11/06/2011 SHARIF JOHNSON MD N 683 ACUTE LYMPHADENITIS 11/06/2011 MASSIEL VEGA M 246.9 UNSPECIFIED DISORDER OF THYROID 11/06/2011 MASSIEL VEGA M 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 11/06/2011 MASSIEL VEGA M 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 11/06/2011 MINGO VEGAISTIN M 496 CHRONIC OBSTRUCTIVE PULMONARY DISEASE 11/06/2011 JANINA BOOKKEEPER RECEPTIONIST, MASSIEL M 683 ACUTE LYMPHADENITIS 11/06/2011 HAZEL DO, MIKE K 246.9 UNSPECIFIED DISORDER OF THYROID 11/06/2011 HAZEL DO, MIKE K 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 11/06/2011 HAZEL DO, MIKE K 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 11/06/2011 HAZEL DO, MIKE K 496 CHRONIC OBSTRUCTIVE PULMONARY DISEASE 11/06/2011 HAZEL DO, MIKE K 683 ACUTE LYMPHADENITIS 11/06/2011 SHARIF JOHNSON MD N 246.9 UNSPECIFIED DISORDER OF THYROID 11/06/2011 SHARIF JOHNSON MD N 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 11/06/2011 ELIZABETH ROLDAN SHARIF N 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 11/06/2011 SHARIF JOHNSON MD N 496 CHRONIC OBSTRUCTIVE PULMONARY DISEASE 11/06/2011 ELIZABETH ROLDAN SHARIF N 683 ACUTE LYMPHADENITIS 11/06/2011 SHANIQUE VEGA MD 246.9 UNSPECIFIED DISORDER OF THYROID 11/06/2011 SHANIQUE VEGA MD 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 11/06/2011 SHANIQUE VEGA MD 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 11/06/2011 SHANIQUE VEGA MD 496 CHRONIC OBSTRUCTIVE PULMONARY DISEASE 11/06/2011 SHANIQUE VEGA MD 683 ACUTE LYMPHADENITIS 11/06/2011 SHARIF JOHNSON MD N 246.9 UNSPECIFIED DISORDER OF THYROID 11/06/2011 SHARIF JOHNSON MD N 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 11/06/2011 SHARIF JOHNSON MD N 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 11/06/2011 SHARIF JOHNSON MD N 496 CHRONIC OBSTRUCTIVE PULMONARY DISEASE 11/06/2011 SHARIF JOHNSON MD N 683 ACUTE LYMPHADENITIS 11/06/2011 SHARIF JOHNSON MD N 246.9 UNSPECIFIED DISORDER OF THYROID 11/06/2011 SHARIF JOHNSON MD N 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 11/06/2011 SHARIF JOHNSON MD N 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 11/06/2011 SHARIF JOHNSON MD N 496 CHRONIC OBSTRUCTIVE PULMONARY DISEASE 11/06/2011 SHARIF JOHNSON MD N 683 ACUTE LYMPHADENITIS 11/06/2011 CARRIE VILLALOBOS MARIA DE JESUS F 246.9 UNSPECIFIED DISORDER OF THYROID 11/06/2011 CARRIE VILLALOBOS MARIA DE JESUS F 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 11/06/2011 CARRIE VILLALOBOS MARIA DE JESUS F 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 11/06/2011 CARRIE VILLALOBOS MARIA DE JESUS F 496 CHRONIC OBSTRUCTIVE PULMONARY DISEASE 11/06/2011 CARRIE VILLALOBOS MARIA DE JESUS F 683 ACUTE LYMPHADENITIS 11/06/2011 SHANIQUE VEGA MD 246.9 UNSPECIFIED DISORDER OF THYROID 11/06/2011 SHANIQUE VEGA MD 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 11/06/2011 SHANIQUE VEGA MD 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 11/06/2011 SHANIQUE VEGA MD 496 CHRONIC OBSTRUCTIVE PULMONARY DISEASE 11/06/2011 SHANIQUE VEGA MD 683 ACUTE LYMPHADENITIS 12/18/2011 296.30 MO DEPRESSIVE RECURRENT UNSPECIFIED 12/18/2011 SHANIQUE VEGA MD 296.30 MO DEPRESSIVE RECURRENT UNSPECIFIED 12/18/2011 296.30 MO DEPRESSIVE RECURRENT UNSPECIFIED 12/18/2011 HAZEL DO MIKE K 296.30 MO DEPRESSIVE RECURRENT UNSPECIFIED 12/18/2011 HAZEL DO MIKE K 296.30 MO DEPRESSIVE RECURRENT UNSPECIFIED 12/18/2011 MARIA DE JESUS BUTLER DO F 296.30 MO DEPRESSIVE RECURRENT UNSPECIFIED 12/18/2011 CAROLINE MENDOZA MD 296.30 MO DEPRESSIVE RECURRENT UNSPECIFIED 12/18/2011 MARIA DE JESUS BUTLER DO F 296.30 MO DEPRESSIVE RECURRENT UNSPECIFIED 12/18/2011 CAROLINE MENDOZA MD 296.30 MO DEPRESSIVE RECURRENT UNSPECIFIED 12/18/2011 296.30 MO DEPRESSIVE RECURRENT UNSPECIFIED 12/18/2011 296.30 MO DEPRESSIVE RECURRENT UNSPECIFIED 12/18/2011 296.30 MO DEPRESSIVE RECURRENT UNSPECIFIED 12/18/2011 296.30 MO DEPRESSIVE RECURRENT UNSPECIFIED 12/18/2011 296.30 MO DEPRESSIVE RECURRENT UNSPECIFIED 12/18/2011 296.30 MO DEPRESSIVE RECURRENT UNSPECIFIED 12/18/2011 296.30 MO DEPRESSIVE RECURRENT UNSPECIFIED 12/18/2011 296.30 MO DEPRESSIVE RECURRENT UNSPECIFIED 12/18/2011 296.30 MO DEPRESSIVE RECURRENT UNSPECIFIED 12/18/2011 MARIA DE JESUS BUTLER DO F 296.30 MO DEPRESSIVE RECURRENT UNSPECIFIED 12/18/2011 CAROLINE MENDOZA MD 296.30 MO DEPRESSIVE RECURRENT UNSPECIFIED 12/18/2011 CAROLINE MENDOZA MD 296.30 MO DEPRESSIVE RECURRENT UNSPECIFIED 12/18/2011 CAROLINE MENDOZA MD 296.30 MO DEPRESSIVE RECURRENT UNSPECIFIED 12/18/2011 DESI BAIG APRN 296.30 MO DEPRESSIVE RECURRENT UNSPECIFIED 12/18/2011 DESI BAIG APRN 296.30 MO DEPRESSIVE RECURRENT UNSPECIFIED 12/18/2011 AUDIE MARC APRN 296.30 MO DEPRESSIVE RECURRENT UNSPECIFIED 12/18/2011 SHAHNAZ MARQUEZ APRN 296.30 MO DEPRESSIVE RECURRENT UNSPECIFIED 12/18/2011 MAX DHILLON APRN 296.30 MO DEPRESSIVE RECURRENT UNSPECIFIED 12/18/2011 MAX DHILLON APRN 296.30 MO DEPRESSIVE RECURRENT UNSPECIFIED 12/18/2011 MIKE HAZEL DO 296.30 MO DEPRESSIVE RECURRENT UNSPECIFIED 12/18/2011 CAROLINE MENDOZA MD 296.30 MO DEPRESSIVE RECURRENT UNSPECIFIED 12/18/2011 CAROLINE MENDOZA MD 296.30 MO DEPRESSIVE RECURRENT UNSPECIFIED 12/18/2011 SHARIF JOHNSON MD N 296.30 MO DEPRESSIVE RECURRENT UNSPECIFIED 12/18/2011 SHARIF JOHNSON MD N 296.30 MO DEPRESSIVE RECURRENT UNSPECIFIED 12/18/2011 SHARIF JOHNSON MD N 296.30 MO DEPRESSIVE RECURRENT UNSPECIFIED 12/18/2011 SHARIF JOHNSON MD N 296.30 MO DEPRESSIVE RECURRENT UNSPECIFIED 12/18/2011 SHARIF JOHNSON MD N 296.30 MO DEPRESSIVE RECURRENT UNSPECIFIED 12/18/2011 JOVANNI BURGOS DESI CONRAD 296.30 MO DEPRESSIVE RECURRENT UNSPECIFIED 12/18/2011 SHARIF JOHNSON MD N 296.30 MO DEPRESSIVE RECURRENT UNSPECIFIED 12/18/2011 SHARIF JOHNSON MD 296.30 MO DEPRESSIVE RECURRENT UNSPECIFIED 12/18/2011 JOVANNI BURGOS DESI CONRAD 296.30 MO DEPRESSIVE RECURRENT UNSPECIFIED 12/18/2011 SHARIF JOHNSON MD N 296.30 MO DEPRESSIVE RECURRENT UNSPECIFIED 12/18/2011 SHARIF JOHNSON MD N 296.30 MO DEPRESSIVE RECURRENT UNSPECIFIED 12/18/2011 MASSIEL VEGA 296.30 MO DEPRESSIVE RECURRENT UNSPECIFIED 12/18/2011 MIKE HAZEL DO 296.30 MO DEPRESSIVE RECURRENT UNSPECIFIED 12/18/2011 SHARIF JOHNSON MD N 296.30 MO DEPRESSIVE RECURRENT UNSPECIFIED 12/18/2011 SHANIQUE VEGA MD 296.30 MO DEPRESSIVE RECURRENT UNSPECIFIED 12/18/2011 SHARIF JOHNSON MD N 296.30 MO DEPRESSIVE RECURRENT UNSPECIFIED 12/18/2011 SHARIF JOHNSON MD N 296.30 MO DEPRESSIVE RECURRENT UNSPECIFIED 12/18/2011 MARIA DE JESUS BUTLER DO 296.30 MO DEPRESSIVE RECURRENT UNSPECIFIED 12/18/2011 SHANIQUE VEGA MD 296.30 MO DEPRESSIVE RECURRENT UNSPECIFIED 03/12/2012 Ot 272.4 03/12/2012 Ot 300.00 03/12/2012 Ot 305.1 03/12/2012 Ot 311 03/12/2012 Ot 414.01 03/12/2012 Ot 493.22 03/12/2012 Ot V45.82 04/18/2012 300.00 AN ANXIETY UNSPEC 04/18/2012 SHANIQUE VEGA MD 300.00 AN ANXIETY UNSPEC 04/18/2012 300.00 AN ANXIETY UNSPEC 04/18/2012 MIKE HAZEL DO 300.00 AN ANXIETY UNSPEC 04/18/2012 MIKE HAZEL DO 300.00 AN ANXIETY UNSPEC 04/18/2012 MARIA DE JESUS BUTLER DO 300.00 AN ANXIETY UNSPEC 04/18/2012 CAROLINE MENDOZA MD 300.00 AN ANXIETY UNSPEC 04/18/2012 MARIA DE JESUS BUTLER DO 300.00 AN ANXIETY UNSPEC 04/18/2012 CAROLINE MENDOZA MD 300.00 AN ANXIETY UNSPEC 04/18/2012 300.00 AN ANXIETY UNSPEC 04/18/2012 300.00 AN ANXIETY UNSPEC 04/18/2012 300.00 AN ANXIETY UNSPEC 04/18/2012 300.00 AN ANXIETY UNSPEC 04/18/2012 300.00 AN ANXIETY UNSPEC 04/18/2012 300.00 AN ANXIETY UNSPEC 04/18/2012 300.00 AN ANXIETY UNSPEC 04/18/2012 300.00 AN ANXIETY UNSPEC 04/18/2012 300.00 AN ANXIETY UNSPEC 04/18/2012 MARIA DE JESUS BUTLER DO 300.00 AN ANXIETY UNSPEC 04/18/2012 CAROLINE MENDOZA MD 300.00 AN ANXIETY UNSPEC 04/18/2012 CAROLINE MENODZA MD 300.00 AN ANXIETY UNSPEC 04/18/2012 CAROLINE MENDOZA MD 300.00 AN ANXIETY UNSPEC 04/18/2012 DESI BAIG APRN 300.00 AN ANXIETY UNSPEC 04/18/2012 DESI BAIG APRN 300.00 AN ANXIETY UNSPEC 04/18/2012 AUDIE MARC APRN 300.00 AN ANXIETY UNSPEC 04/18/2012 SHAHNAZ MARQUEZ APRN 300.00 AN ANXIETY UNSPEC 04/18/2012 MAX DHILLON APRN 300.00 AN ANXIETY UNSPEC 04/18/2012 MAX DHILLON APRN 300.00 AN ANXIETY UNSPEC 04/18/2012 MIKE HAZEL DO 300.00 AN ANXIETY UNSPEC 04/18/2012 CAROLINE MENDOZA MD 300.00 AN ANXIETY UNSPEC 04/18/2012 CAROLINE MENDOZA MD 300.00 AN ANXIETY UNSPEC 04/18/2012 SHARIF JOHNSON MD 300.00 AN ANXIETY UNSPEC 04/18/2012 SHARIF JOHNSON MD 300.00 AN ANXIETY UNSPEC 04/18/2012 SHARIF JOHNSON MD 300.00 AN ANXIETY UNSPEC 04/18/2012 SHARIF JOHNSON MD 300.00 AN ANXIETY UNSPEC 04/18/2012 SHARIF JOHNSON MD 300.00 AN ANXIETY UNSPEC 04/18/2012 JOVANNI BURGOS DESI CONRAD 300.00 AN ANXIETY UNSPEC 04/18/2012 SHARIF JOHNSON MD 300.00 AN ANXIETY UNSPEC 04/18/2012 SHARIF JOHNSON MD 300.00 AN ANXIETY UNSPEC 04/18/2012 JOVANNI BURGOS DESI CONRAD 300.00 AN ANXIETY UNSPEC 04/18/2012 SHARIF JOHNSON MD 300.00 AN ANXIETY UNSPEC 04/18/2012 SHARIF JOHNSON MD 300.00 AN ANXIETY UNSPEC 04/18/2012 MASSIEL VEGA 300.00 AN ANXIETY UNSPEC 04/18/2012 MIKE HAZEL DO 300.00 AN ANXIETY UNSPEC 04/18/2012 SHARIF JOHNSON MD 300.00 AN ANXIETY UNSPEC 04/18/2012 SHANIQUE VEGA MD 300.00 AN ANXIETY UNSPEC 04/18/2012 SHARIF JOHNSON MD 300.00 AN ANXIETY UNSPEC 04/18/2012 SHARIF JOHNSON MD 300.00 AN ANXIETY UNSPEC 04/18/2012 MARIA DE JESUS BUTLER DO 300.00 AN ANXIETY UNSPEC 04/18/2012 SHANIQUE VEGA MD 300.00 AN ANXIETY UNSPEC 04/30/2012 300.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 04/30/2012 SHANIQUE VEGA MD 300.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 04/30/2012 300.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 04/30/2012 MIKE HAZEL DO 300.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 04/30/2012 MIKE HAZEL DO 300.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 04/30/2012 MARIA DE JESUS BUTLER DO 300.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 04/30/2012 CAROLINE MENDOZA MD 300.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 04/30/2012 MARIA DE JESUS BUTLER DO F 300.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 04/30/2012 CAROLIEN MENDOZA MD 300.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 04/30/2012 300.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 04/30/2012 300.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 04/30/2012 300.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 04/30/2012 300.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 04/30/2012 300.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 04/30/2012 300.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 04/30/2012 300.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 04/30/2012 300.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 04/30/2012 300.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 04/30/2012 MARIA DE JESUS BUTLER DO F 300.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 04/30/2012 CAROLINE MENDOZA MD 300.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 04/30/2012 CAROLINE MENDOZA MD 300.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 04/30/2012 CAROLINE MENDOZA MD 300.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 04/30/2012 DESI BAIG APRN 300.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 04/30/2012 DESI BAIG APRN 300.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 04/30/2012 AUDIE MARC APRN R 300.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 04/30/2012 SHAHNAZ MARQUEZ APRN S 300.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 04/30/2012 MAX DHILLON APRN 300.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 04/30/2012 MAX DHILLON APRN 300.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 04/30/2012 MIKE HAZEL DO 300.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 04/30/2012 CAROLINE MENDOZA MD 300.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 04/30/2012 CAROLINE MENDOZA MD 300.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 04/30/2012 SHARIF JOHNSON MD 300.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 04/30/2012 SHARIF JOHNSON MD 300.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 04/30/2012 SHARIF JOHNSON MD 300.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 04/30/2012 SHARIF JOHNSON MD 300.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 04/30/2012 SHARIF JOHNSON MD 300.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 04/30/2012 DESI BAIG APRN 300.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 04/30/2012 SHARIF JOHNSON MD 300.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 04/30/2012 SHARIF JOHNSON MD 300.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 04/30/2012 DESI BAIG APRN 300.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 04/30/2012 SHARIF JOHNSON MD 300.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 04/30/2012 SHARIF JOHNSON MD 300.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 04/30/2012 MASSIEL VEGA 300.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 04/30/2012 MIKE HAZEL DO 300.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 04/30/2012 SHARIF JOHNSON MD 300.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 04/30/2012 SHANIQUE VEGA MD 300.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 04/30/2012 SHARIF JOHNSON MD 300.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 04/30/2012 SHARIF JOHNSON MD 300.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 04/30/2012 MARIA DE JESUS BUTLER DO 300.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 04/30/2012 SHANIQUE VEGA MD 300.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 05/29/2012 307.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 05/29/2012 SHANIQUE VEGA MD 307.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 05/29/2012 307.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 05/29/2012 MIKE HAZEL DO 307.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 05/29/2012 MIKE HAZEL DO 307.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 05/29/2012 MARIA DE JESUS BUTLER DO 307.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 05/29/2012 CAROLINE MENDOZA MD 307.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 05/29/2012 MARIA DE JESUS BUTLER DO 307.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 05/29/2012 CAROLINE MENDOZA MD 307.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 05/29/2012 307.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 05/29/2012 307.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 05/29/2012 307.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 05/29/2012 307.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 05/29/2012 307.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 05/29/2012 307.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 05/29/2012 307.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 05/29/2012 307.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 05/29/2012 307.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 05/29/2012 MARIA DE JESUS BUTLER DO 307.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 05/29/2012 CAROLINE MENDOZA MD 307.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 05/29/2012 CAROLINE MENDOZA MD 307.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 05/29/2012 CAROLINE MENDOZA MD 307.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 05/29/2012 DESI BAIG APRN 307.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 05/29/2012 DESI BAIG APRN 307.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 05/29/2012 AUDIE MARC APRN R 307.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 05/29/2012 JIMMY BURGOS SHAHNAZ S 307.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 05/29/2012 MAX DHILLON APRN 307.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 05/29/2012 MAX DHILLON APRN 307.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 05/29/2012 HAZEL MIKE VILLALOBOS 307.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 05/29/2012 CAROLINE MENDOZA MD 307.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 05/29/2012 CAROLINE MENDOZA MD 307.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 05/29/2012 SHARIF JOHNSON MD 307.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 05/29/2012 SHARIF JOHNSON MD 307.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 05/29/2012 SHARIF JOHNSON MD 307.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 05/29/2012 SHARIF JOHNSON MD 307.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 05/29/2012 SHARIF JOHNSON MD 307.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 05/29/2012 DESI BAIG APRN 307.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 05/29/2012 SHARIF JOHNSON MD 307.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 05/29/2012 SHARIF JOHNSON MD 307.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 05/29/2012 DESI BAIG APRN 307.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 05/29/2012 ELIZABETH ROLDAN, SHARIF Menjivar 307.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 05/29/2012 ELIZABETH ROLDAN, SHARIF Menjivar 307.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 05/29/2012 MASSIEL VEGA 307.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 05/29/2012 MIKE HAZEL DO 307.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 05/29/2012 ELIZABETH ROLDAN, SHARIF Menjivar 307.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 05/29/2012 SHANIQUE VEGA MD 307.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 05/29/2012 ELIZABETH ROLDAN, SHARIF Menjivar 307.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 05/29/2012 ELIZABETH ROLDAN, SHARIF Menjivar 307.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 05/29/2012 MARIA DE JESUS BUTLER DO 307.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 05/29/2012 SHANIQUE VEGA MD 307.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 06/05/2012 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 06/05/2012 V58.69 MEDICATION HIGH RISK 06/05/2012 SHANIQUE VEGA MD 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 06/05/2012 SHANIQUE VEGA MD V58.69 MEDICATION HIGH RISK 06/05/2012 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 06/05/2012 V58.69 MEDICATION HIGH RISK 06/05/2012 MIKE HAZEL DO K 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 06/05/2012 MIKE HAZEL DO K V58.69 MEDICATION HIGH RISK 06/05/2012 HAZEL CHANDA VILLALOBOSA K 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 06/05/2012 HAZEL CHANDA VILLALOBOSA K V58.69 MEDICATION HIGH RISK 06/05/2012 MARIA DE JESUS BUTLER DO 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 06/05/2012 MARIA DE JESUS BUTLER DO V58.69 MEDICATION HIGH RISK 06/05/2012 CAROLINE MENDOZA MD 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 06/05/2012 CAROLINE MENDOZA MD V58.69 MEDICATION HIGH RISK 06/05/2012 MARIA DE JESUS BUTLER DO 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 06/05/2012 MARIA DE JESUS BUTLER DO V58.69 MEDICATION HIGH RISK 06/05/2012 CAROLINE MENDOZA MD 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 06/05/2012 CAROLINE MENDOZA MD V58.69 MEDICATION HIGH RISK 06/05/2012 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 06/05/2012 V58.69 MEDICATION HIGH RISK 06/05/2012 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 06/05/2012 V58.69 MEDICATION HIGH RISK 06/05/2012 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 06/05/2012 V58.69 MEDICATION HIGH RISK 06/05/2012 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 06/05/2012 V58.69 MEDICATION HIGH RISK 06/05/2012 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 06/05/2012 V58.69 MEDICATION HIGH RISK 06/05/2012 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 06/05/2012 V58.69 MEDICATION HIGH RISK 06/05/2012 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 06/05/2012 V58.69 MEDICATION HIGH RISK 06/05/2012 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 06/05/2012 V58.69 MEDICATION HIGH RISK 06/05/2012 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 06/05/2012 V58.69 MEDICATION HIGH RISK 06/05/2012 MARIA DE JESUS BUTLER DO 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 06/05/2012 MARIA DE JESUS BUTLER DO V58.69 MEDICATION HIGH RISK 06/05/2012 CAROLINE EMNDOZA MD 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 06/05/2012 CAROLINE MENDOZA MD V58.69 MEDICATION HIGH RISK 06/05/2012 CAROLINE MENDOZA MD 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 06/05/2012 CAROLINE MENDOZA MD V58.69 MEDICATION HIGH RISK 06/05/2012 CAROLINE MENDOZA MD 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 06/05/2012 CAROLINE MENDOZA MD V58.69 MEDICATION HIGH RISK 06/05/2012 DESI BAIG APRN 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 06/05/2012 DESI BAIG APRN V58.69 MEDICATION HIGH RISK 06/05/2012 DESI BAIG APRN 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 06/05/2012 DESI BAIG APRN V58.69 MEDICATION HIGH RISK 06/05/2012 TARI WOODSTiara AUDIE R 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 06/05/2012 TARI WOODSTiara AUDIE R V58.69 MEDICATION HIGH RISK 06/05/2012 JIMMY AUBREY SHAHNAZ S 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 06/05/2012 JIMMY AUBREY SHAHNAZ S V58.69 MEDICATION HIGH RISK 06/05/2012 MAX DHILLON APRN 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 06/05/2012 MAX DHILLON APRN V58.69 MEDICATION HIGH RISK 06/05/2012 MAX DHILLON APRN 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 06/05/2012 MAX DHILLON APRN V58.69 MEDICATION HIGH RISK 06/05/2012 MIKE HAZEL DO K 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 06/05/2012 MIKE HAZEL DO K V58.69 MEDICATION HIGH RISK 06/05/2012 CAROLINE MENDOZA MD 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 06/05/2012 CAROLINE MENDOZA MD V58.69 MEDICATION HIGH RISK 06/05/2012 CAROLINE MENDOZA MD 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 06/05/2012 CAROLINE MENDOZA MD V58.69 MEDICATION HIGH RISK 06/05/2012 SHARIF JOHNSON MD N 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 06/05/2012 SHARIF JOHNSON MD N V58.69 MEDICATION HIGH RISK 06/05/2012 SHARIF JOHNSON MD N 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 06/05/2012 SHARIF JOHNSON MD V58.69 MEDICATION HIGH RISK 06/05/2012 SHARIF JOHNSON MD N 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 06/05/2012 SHARIF JOHNSON MD V58.69 MEDICATION HIGH RISK 06/05/2012 SHARIF JOHNSON MD N 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 06/05/2012 ELIZABETH MD, SHARIF N V58.69 MEDICATION HIGH RISK 06/05/2012 SHARIF JOHNSON MD N 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 06/05/2012 SHARIF JOHNSON MD N V58.69 MEDICATION HIGH RISK 06/05/2012 BAIG AUBREYDESI 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 06/05/2012 JOVANNI BURGOSDESI V58.69 MEDICATION HIGH RISK 06/05/2012 SHARIF JOHNSON MD N 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 06/05/2012 SHARIF JOHNSON MD N V58.69 MEDICATION HIGH RISK 06/05/2012 SHARIF JOHNSON MD N 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 06/05/2012 SHARIF JOHNSON MD V58.69 MEDICATION HIGH RISK 06/05/2012 BAIGLUDA BURGOS DESI CONRAD 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 06/05/2012 JOVANNI BURGOS DESI CONRAD V58.69 MEDICATION HIGH RISK 06/05/2012 SHARIF JOHNSON MD N 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 06/05/2012 SHARIF JOHNSON MD N V58.69 MEDICATION HIGH RISK 06/05/2012 SHARIF JOHNSON MD N 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 06/05/2012 SHARIF JOHNSON MD N V58.69 MEDICATION HIGH RISK 06/05/2012 MASSIEL VEGA 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 06/05/2012 MASSIEL VEGA V58.69 MEDICATION HIGH RISK 06/05/2012 HAZEL DOMIKE K 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 06/05/2012 HAZEL CHANDA VILLALOBOSA K V58.69 MEDICATION HIGH RISK 06/05/2012 SHARIF JOHNSON MD N 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 06/05/2012 SHARIF JOHNSON MD V58.69 MEDICATION HIGH RISK 06/05/2012 SHANIQUE VEGA MD 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 06/05/2012 SHANIQUE VEGA MD V58.69 MEDICATION HIGH RISK 06/05/2012 SHARIF JOHNSON MD N 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 06/05/2012 SHARIF JOHNSON MD V58.69 MEDICATION HIGH RISK 06/05/2012 ELIZABETH ROLDAN, SHARIF N 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 06/05/2012 SHARIF JOHNSON MD V58.69 MEDICATION HIGH RISK 06/05/2012 MARIA DE JESUS BUTLER DO 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 06/05/2012 MARIA DE JESUS BUTLER DO V58.69 MEDICATION HIGH RISK 06/05/2012 SHANIQUE VEGA MD 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 06/05/2012 SHANIQUE VEGA MD V58.69 MEDICATION HIGH RISK 06/10/2012 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 06/10/2012 SHANIQUE VEGA MD 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 06/10/2012 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 06/10/2012 HAZEL DO, MIKE K 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 06/10/2012 HAZEL DO, MIKE K 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 06/10/2012 MARIA DE JESUS BUTLER DO F 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 06/10/2012 CAROLINE MENDOZA MD 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) 06/10/2012 MARIA DE JESUS BUTLER DO 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) 06/10/2012 CAROLINE MENDOZA MD 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) 06/10/2012 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) 06/10/2012 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) 06/10/2012 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) 06/10/2012 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) 06/10/2012 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) 06/10/2012 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) 06/10/2012 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) 06/10/2012 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) 06/10/2012 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) 06/10/2012 MARIA DE JESUS BUTLER DO 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) 06/10/2012 CAROLINE MENDOZA MD 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) 06/10/2012 CAROLINE MENDOZA MD 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) 06/10/2012 CAROLINE MENDOZA MD 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) 06/10/2012 JOVANNI BURGOS DESI HOUSTON 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) 06/10/2012 JOVANNI BURGOS DESI HOUSTON 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) 06/10/2012 AUDIE MARC APRN R 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) 06/10/2012 JIMMY BURGOS SHAHNAZ S 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) 06/10/2012 MAX DHILLON APRN 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) 06/10/2012 MAX DHILLON APRN 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) 06/10/2012 MIKE HAZEL DO 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) 06/10/2012 CAROLINE MENDOZA MD 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) 06/10/2012 CAROLINE MENDOZA MD 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) 06/10/2012 SHARIF JOHNSON MD N 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) 06/10/2012 SHARIF JOHNSON MD N 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) 06/10/2012 SHARIF JOHNSON MD N 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) 06/10/2012 SHARIF JOHNSON MD N 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) 06/10/2012 SHARIF JOHNSON MD N 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) 06/10/2012 JOVANNI BURGOS DESI HOUSTON 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) 06/10/2012 SHARIF JOHNSON MD N 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) 06/10/2012 SHARIF JOHNSON MD N 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) 06/10/2012 DESI BAIG APRN 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) 06/10/2012 SHARIF JOHNSON MD 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) 06/10/2012 SHARIF JOHNSON MD 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) 06/10/2012 MASSIEL VEGA 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01 AN PANIC DIS W/O AGORA 06/18/2012 MIKE HAZEL DO 300.01 AN PANIC DIS W/O AGORA 06/18/2012 MIKE HAZEL DO 300.01 AN PANIC DIS W/O AGORA 06/18/2012 MARIA DE JESUS BUTLER DO 300.01 AN PANIC DIS W/O AGORA 06/18/2012 CAROLINE MENDOZA MD 300.01 AN PANIC DIS W/O AGORA 06/18/2012 MARIA DE JESUS BUTLER DO 300.01 AN PANIC DIS W/O AGORA 06/18/2012 CAROLINE MENDOZA MD 300.01 AN PANIC DIS W/O AGORA 06/18/2012 300.01 AN PANIC DIS W/O AGORA 06/18/2012 300.01 AN PANIC DIS W/O AGORA 06/18/2012 300.01 AN PANIC DIS W/O AGORA 06/18/2012 300.01 AN PANIC DIS W/O AGORA 06/18/2012 300.01 AN PANIC DIS W/O AGORA 06/18/2012 300.01 AN PANIC DIS W/O AGORA 06/18/2012 300.01 AN PANIC DIS W/O AGORA 06/18/2012 300.01 AN PANIC DIS W/O AGORA 06/18/2012 300.01 AN PANIC DIS W/O AGORA 06/18/2012 MARIA DE JESUS BUTLER DO 300.01 AN PANIC DIS W/O AGORA 06/18/2012 CAROLINE MENDOZA MD 300.01 AN PANIC DIS W/O AGORA 06/18/2012 CAROLINE MENDOZA MD 300.01 AN PANIC DIS W/O AGORA 06/18/2012 CAROLINE MENDOZA MD 300.01 AN PANIC DIS W/O AGORA 06/18/2012 DESI BAIG APRN 300.01 AN PANIC DIS W/O AGORA 06/18/2012 DESI BAIG APRN 300.01 AN PANIC DIS W/O AGORA 06/18/2012 AUDIE MARC APRN R 300.01 AN PANIC DIS W/O AGORA 06/18/2012 SHAHNAZ MARQUEZ APRN S 300.01 AN PANIC DIS W/O AGORA 06/18/2012 MAX DHILLON APRN 300.01 AN PANIC DIS W/O AGORA 06/18/2012 MAX DHILLON APRN 300.01 AN PANIC DIS W/O AGORA 06/18/2012 MIKE HAZEL DO 300.01 AN PANIC DIS W/O AGORA 06/18/2012 CAROLINE MENDOZA MD 300.01 AN PANIC DIS W/O AGORA 06/18/2012 CAROLINE MENDOZA MD 300.01 AN PANIC DIS W/O AGORA 06/18/2012 SHARIF JOHNSON MD 300.01 AN PANIC DIS W/O AGORA 06/18/2012 SHARIF JOHNSON MD 300.01 AN PANIC DIS W/O AGORA 06/18/2012 SHARIF JOHNSON MD 300.01 AN PANIC DIS W/O AGORA 06/18/2012 SHARIF JOHNSON MD 300.01 AN PANIC DIS W/O AGORA 06/18/2012 SHARIF JOHNSON MD 300.01 AN PANIC DIS W/O AGORA 06/18/2012 DESI BAIG APRN 300.01 AN PANIC DIS W/O AGORA 06/18/2012 SHARIF JOHNSON MD 300.01 AN PANIC DIS W/O AGORA 06/18/2012 SHARIF JOHNSON MD 300.01 AN PANIC DIS W/O AGORA 06/18/2012 JOVANNI BURGOSDESI 300.01 AN PANIC DIS W/O AGORA 06/18/2012 SHARIF JOHNSON MD 300.01 AN PANIC DIS W/O AGORA 06/18/2012 SHARIF JOHNSON MD 300.01 AN PANIC DIS W/O AGORA 06/18/2012 MASSIEL VEGA 300.01 AN PANIC DIS W/O AGORA 06/18/2012 MIKE HAZEL DO 300.01 AN PANIC DIS W/O AGORA 06/18/2012 SHARIF JOHNSON MD 300.01 AN PANIC DIS W/O AGORA 06/18/2012 SHANIQUE VEGA MD 300.01 AN PANIC DIS W/O AGORA 06/18/2012 SHARIF JOHNSON MD 300.01 AN PANIC DIS W/O AGORA 06/18/2012 SHARIF JOHNSON MD 300.01 AN PANIC DIS W/O AGORA 06/18/2012 MARIA DE JESUS BUTLER DO 300.01 AN PANIC DIS W/O AGORA 06/18/2012 SHANIQUE VEGA MD 300.01 AN PANIC DIS W/O AGORA 06/27/2012 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 06/27/2012 SHANIQUE VEGA MD 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 06/27/2012 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 06/27/2012 MIKE HAZEL DO 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 06/27/2012 MIKE HAZEL DO 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 06/27/2012 MARIA DE JESUS BUTLER DO 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 06/27/2012 CAROLINE MENDOZA MD 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 06/27/2012 MARIA DE JESUS BUTLER DO F 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 06/27/2012 CAROLINE MENDOAZ MD 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 06/27/2012 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 06/27/2012 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 06/27/2012 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 06/27/2012 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 06/27/2012 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 06/27/2012 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 06/27/2012 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 06/27/2012 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 06/27/2012 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 06/27/2012 MARIA DE JESUS BUTLER DO F 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 06/27/2012 CAROLINE MENDOZA MD 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 06/27/2012 CAROLINE MENDOZA MD 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 06/27/2012 CAROLINE MENDOZA MD 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 06/27/2012 BAIGDESI HUGO APRN 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 06/27/2012 BAIG APRN, DESI HOUSTON 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 06/27/2012 AUDIE MARC APRN R 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 06/27/2012 SHAHNAZ MARQUEZ APRN S 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 06/27/2012 MAX DHILLON APRN T 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 06/27/2012 MAX DHILLON APRN T 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 06/27/2012 MIKE HAZEL DO 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 06/27/2012 CAROLINE MENDOZA MD 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 06/27/2012 CAROLINE MENDOZA MD 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 06/27/2012 SHARIF JOHNSON MD 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 06/27/2012 SHARIF JOHNSON MD 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 06/27/2012 SHARIF JOHNSON MD 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 06/27/2012 SHARIF JOHNSON MD N 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 06/27/2012 ELIZABETH MD, SHARIF N 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 06/27/2012 JOVANNI SOLAR APPLICATIONS DEVELOPMENT ENGINEERDESI Menjivar 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 06/27/2012 SHARIF JOHNSON MD N 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 06/27/2012 SHARIF JOHNSON MD N 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 06/27/2012 DESI BAIG APRN 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 06/27/2012 SHARIF JOHNSON MD N 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 06/27/2012 SHARIF JOHNSON MD N 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 06/27/2012 MASSIEL VEGA 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 06/27/2012 MIKE HAZEL DO 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 06/27/2012 ELIZABETH ROLDAN, SHARIF N 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 06/27/2012 SHANIQUE VEGA MD 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 06/27/2012 SHARIF JOHNSON MD N 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 06/27/2012 SHARIF JOHNSON MD N 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 06/27/2012 MARIA DE JESUS BUTLER DO 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 06/27/2012 SHANIQUE VEGA MD 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 09/11/2012 V04.81 FLU DX (3 YRS AND ABOVE, IM) 09/11/2012 SHANIQUE VEGA MD V04.81 FLU DX (3 YRS AND ABOVE, IM) 09/11/2012 V04.81 FLU DX (3 YRS AND ABOVE, IM) 09/11/2012 MIKE HAZEL DO V04.81 FLU DX (3 YRS AND ABOVE, IM) 09/11/2012 MIKE HAZEL DO V04.81 FLU DX (3 YRS AND ABOVE, IM) 09/11/2012 MARIA DE JESUS BUTLER DO V04.81 FLU DX (3 YRS AND ABOVE, IM) 09/11/2012 CAROLINE MENDOZA MD V04.81 FLU DX (3 YRS AND ABOVE, IM) 09/11/2012 MARIA DE JESUS BUTLER DO V04.81 FLU DX (3 YRS AND ABOVE, IM) 09/11/2012 CAROLINE MENDOZA MD V04.81 FLU DX (3 YRS AND ABOVE, IM) 09/11/2012 V04.81 FLU DX (3 YRS AND ABOVE, IM) 09/11/2012 V04.81 FLU DX (3 YRS AND ABOVE, IM) 09/11/2012 V04.81 FLU DX (3 YRS AND ABOVE, IM) 09/11/2012 V04.81 FLU DX (3 YRS AND ABOVE, IM) 09/11/2012 V04.81 FLU DX (3 YRS AND ABOVE, IM) 09/11/2012 V04.81 FLU DX (3 YRS AND ABOVE, IM) 09/11/2012 V04.81 FLU DX (3 YRS AND ABOVE, IM) 09/11/2012 V04.81 FLU DX (3 YRS AND ABOVE, IM) 09/11/2012 V04.81 FLU DX (3 YRS AND ABOVE, IM) 09/11/2012 MARIA DE JESUS BUTLER DO V04.81 Vaccines Prophylactic Need Against Influenza 09/11/2012 CAROLINE MENDOZA MD V04.81 Vaccines Prophylactic Need Against Influenza 09/11/2012 CAROLINE MENDOZA MD V04.81 Vaccines Prophylactic Need Against Influenza 09/11/2012 CAROLINE MENDOZA MD V04.81 Vaccines Prophylactic Need Against Influenza 09/11/2012 DESI BAIG APRN V04.81 Vaccines Prophylactic Need Against Influenza 09/11/2012 DESI BAIG APRN V04.81 Vaccines Prophylactic Need Against Influenza 09/11/2012 AUDIE MARC APRN V04.81 Vaccines Prophylactic Need Against Influenza 09/11/2012 SHAHNAZ MARQUEZ APRN V04.81 Vaccines Prophylactic Need Against Influenza 09/11/2012 MAX DHILLON APRN V04.81 Vaccines Prophylactic Need Against Influenza 09/11/2012 MAX DHILLON APRN V04.81 Vaccines Prophylactic Need Against Influenza 09/11/2012 MIKE HAZEL DO V04.81 Vaccines Prophylactic Need Against Influenza 09/11/2012 CAROLINE MENDOZA MD V04.81 Vaccines Prophylactic Need Against Influenza 09/11/2012 CAROLINE MENDOZA MD V04.81 Vaccines Prophylactic Need Against Influenza 09/11/2012 SHARIF JOHNSON MD V04.81 Vaccines Prophylactic Need Against Influenza 09/11/2012 SHARIF JOHNSON MD V04.81 Vaccines Prophylactic Need Against Influenza 09/11/2012 SHARIF JOHNSON MD V04.81 Vaccines Prophylactic Need Against Influenza 09/11/2012 SHARIF JOHNSON MD V04.81 Vaccines Prophylactic Need Against Influenza 09/11/2012 SHARIF JOHNSON MD V04.81 Vaccines Prophylactic Need Against Influenza 09/11/2012 JOVANNI WOODSNDESI V04.81 Vaccines Prophylactic Need Against Influenza 09/11/2012 SHARIF JOHNSON MD V04.81 Vaccines Prophylactic Need Against Influenza 09/11/2012 SHARIF JOHNSON MD V04.81 Vaccines Prophylactic Need Against Influenza 09/11/2012 JOVANNI WOODSTiara DESI SINGHH V04.81 Vaccines Prophylactic Need Against Influenza 09/11/2012 SHARIF JOHNSON MD V04.81 Vaccines Prophylactic Need Against Influenza 09/11/2012 SHARIF JOHNSON MD V04.81 Vaccines Prophylactic Need Against Influenza 09/11/2012 MASSIEL VEGA V04.81 Vaccines Prophylactic Need Against Influenza 09/11/2012 MIKE HAZEL DO V04.81 Vaccines Prophylactic Need Against Influenza 09/11/2012 SHARIF JOHNSON MD V04.81 Vaccines Prophylactic Need Against Influenza 09/11/2012 SHANIQUE VEGA MD V04.81 Vaccines Prophylactic Need Against Influenza 09/11/2012 SHARIF JOHNSON MD V04.81 Vaccines Prophylactic Need Against Influenza 09/11/2012 SHARIF JOHNSON MD V04.81 Vaccines Prophylactic Need Against Influenza 09/11/2012 MARIA DE JESUS BUTLER DO V04.81 FLU DX (3 YRS AND ABOVE, IM) 09/11/2012 SHANIQUE VEGA MD V04.81 Vaccines Prophylactic Need Against Influenza 10/10/2012 Ot 250.00 10/10/2012 Ot 272.4 10/10/2012 Ot 300.00 10/10/2012 Ot 305.1 10/10/2012 Ot 311 10/10/2012 Ot 401.9 10/10/2012 Ot 414.01 10/10/2012 Ot 491.21 10/10/2012 Ot 722.6 10/10/2012 Ot 787.91 10/10/2012 Ot V03.82 10/24/2012 SHANIQUE VEGA MD 401.1 ESSENTIAL HYPERTENSION BENIGN 10/24/2012 SHANIQUE VEGA MD 785.1 palpitations 10/24/2012 401.1 ESSENTIAL HYPERTENSION BENIGN 10/24/2012 785.1 palpitations 10/24/2012 HAZEL DO, MIKE K 401.1 ESSENTIAL HYPERTENSION BENIGN 10/24/2012 HAZEL DO, MIKE K 785.1 palpitations 10/24/2012 HAZEL DO, MIKE K 401.1 ESSENTIAL HYPERTENSION BENIGN 10/24/2012 HAZEL DO, MIKE K 785.1 palpitations 10/24/2012 WERDER DO MARIA DE JESUS F 401.1 ESSENTIAL HYPERTENSION BENIGN 10/24/2012 WERDER DO MARIA DE JESUS F 785.1 palpitations 10/24/2012 CAROLINE MENDOZA MD 401.1 ESSENTIAL HYPERTENSION BENIGN 10/24/2012 CAROLINE MENDOZA MD 785.1 palpitations 10/24/2012 MARIA DE JESUS BUTLER DO F 401.1 ESSENTIAL HYPERTENSION BENIGN 10/24/2012 MARKO BUTLER DOEN F 785.1 palpitations 10/24/2012 CAROLINE MENDOZA MD 401.1 ESSENTIAL HYPERTENSION BENIGN 10/24/2012 CAROLINE MENDOZA MD 785.1 palpitations 10/24/2012 401.1 ESSENTIAL HYPERTENSION BENIGN 10/24/2012 785.1 palpitations 10/24/2012 401.1 ESSENTIAL HYPERTENSION BENIGN 10/24/2012 785.1 palpitations 10/24/2012 401.1 ESSENTIAL HYPERTENSION BENIGN 10/24/2012 785.1 palpitations 10/24/2012 401.1 ESSENTIAL HYPERTENSION BENIGN 10/24/2012 785.1 palpitations 10/24/2012 401.1 ESSENTIAL HYPERTENSION BENIGN 10/24/2012 785.1 palpitations 10/24/2012 401.1 ESSENTIAL HYPERTENSION BENIGN 10/24/2012 785.1 palpitations 10/24/2012 401.1 ESSENTIAL HYPERTENSION BENIGN 10/24/2012 785.1 palpitations 10/24/2012 401.1 ESSENTIAL HYPERTENSION BENIGN 10/24/2012 785.1 palpitations 10/24/2012 401.1 ESSENTIAL HYPERTENSION BENIGN 10/24/2012 785.1 palpitations 10/24/2012 MARKO BUTLER DOEN F 401.1 ESSENTIAL HYPERTENSION BENIGN 10/24/2012 CARRIE VILLALOBOS MARIA DE JESUS F 785.1 palpitations 10/24/2012 CAROLINE MENDOZA MD 401.1 ESSENTIAL HYPERTENSION BENIGN 10/24/2012 CAROLINE MENDOZA MD 785.1 palpitations 10/24/2012 CAROLINE MENDOZA MD 401.1 ESSENTIAL HYPERTENSION BENIGN 10/24/2012 CAROLINE MENDOZA MD 785.1 palpitations 10/24/2012 CAROLINE MENDOZA MD 401.1 ESSENTIAL HYPERTENSION BENIGN 10/24/2012 CAROLINE MENDOZA MD 785.1 palpitations 10/24/2012 JOVANNI WOODSN, DESI CONRAD 401.1 ESSENTIAL HYPERTENSION BENIGN 10/24/2012 JOVANNI WOODSN, DESI CONRAD 785.1 palpitations 10/24/2012 JOVANNI WOODSN, DESI CONRAD 401.1 ESSENTIAL HYPERTENSION BENIGN 10/24/2012 JOVANNI WOODSN, DESI CONRAD 785.1 palpitations 10/24/2012 BELÉN MARC APRNRICIA R 401.1 ESSENTIAL HYPERTENSION BENIGN 10/24/2012 STEPHEN MARC APRNIA R 785.1 palpitations 10/24/2012 FRANCISCO MARQUEZ APRNA S 401.1 ESSENTIAL HYPERTENSION BENIGN 10/24/2012 FRANCISCO MARQUEZ APRNA S 785.1 palpitations 10/24/2012 MAX DHILLON APRN T 401.1 ESSENTIAL HYPERTENSION BENIGN 10/24/2012 MAX DHILLON APRN T 785.1 palpitations 10/24/2012 MAX DHILLON APRN T 401.1 ESSENTIAL HYPERTENSION BENIGN 10/24/2012 MAX DHILLON APRN T 785.1 palpitations 10/24/2012 HAZEL DO, MIKE K 401.1 ESSENTIAL HYPERTENSION BENIGN 10/24/2012 HAZEL DO, MIKE K 785.1 palpitations 10/24/2012 CAROLINE MENODZA MD 401.1 ESSENTIAL HYPERTENSION BENIGN 10/24/2012 CAROLINE MENDOZA MD 785.1 palpitations 10/24/2012 CAROLINE MENDOZA MD 401.1 ESSENTIAL HYPERTENSION BENIGN 10/24/2012 CAROLINE MENDOZA MD 785.1 palpitations 10/24/2012 SHARIF JOHNSON MD 401.1 ESSENTIAL HYPERTENSION BENIGN 10/24/2012 SHARIF JOHNSON MD 785.1 palpitations 10/24/2012 SHARIF JOHNSON MD N 401.1 ESSENTIAL HYPERTENSION BENIGN 10/24/2012 ELIZABETH MD, SHARIF N 785.1 palpitations 10/24/2012 SHARIF JOHNSON MD N 401.1 ESSENTIAL HYPERTENSION BENIGN 10/24/2012 SHARIF JOHNSON MD N 785.1 palpitations 10/24/2012 SHARIF JOHNSON MD N 401.1 ESSENTIAL HYPERTENSION BENIGN 10/24/2012 SHARIF JOHNSON MD N 785.1 palpitations 10/24/2012 SHARIF JOHNSON MD N 401.1 ESSENTIAL HYPERTENSION BENIGN 10/24/2012 SHARIF JOHNSON MD N 785.1 palpitations 10/24/2012 BAIGLUDA BURGOS DESI CONRAD 401.1 ESSENTIAL HYPERTENSION BENIGN 10/24/2012 BAIGLUDA BURGOS DESI CONRAD 785.1 palpitations 10/24/2012 SHARIF OJHNSON MD N 401.1 ESSENTIAL HYPERTENSION BENIGN 10/24/2012 SHARIF JOHNSON MD N 785.1 palpitations 10/24/2012 SHARIF JOHNSON MD N 401.1 ESSENTIAL HYPERTENSION BENIGN 10/24/2012 SHARIF JOHNSON MD N 785.1 palpitations 10/24/2012 BAIGLUDA BURGOS DESI CONRAD 401.1 ESSENTIAL HYPERTENSION BENIGN 10/24/2012 BAIGLUDA BURGOS DESI CONRAD 785.1 palpitations 10/24/2012 SHARIF JOHNSON MD N 401.1 ESSENTIAL HYPERTENSION BENIGN 10/24/2012 SHARIF JOHNSON MD N 785.1 palpitations 10/24/2012 SHARIF JOHNSON MD N 401.1 ESSENTIAL HYPERTENSION BENIGN 10/24/2012 SHARIF JOHNSON MD N 785.1 palpitations 10/24/2012 MASSIEL VEGA M 401.1 ESSENTIAL HYPERTENSION BENIGN 10/24/2012 JANINA BOOKKEEPER RECEPTIONIST, MASSIEL M 785.1 palpitations 10/24/2012 HAZEL DO, MIKE K 401.1 ESSENTIAL HYPERTENSION BENIGN 10/24/2012 HAZEL DO, MIKE K 785.1 palpitations 10/24/2012 SHARIF JOHNSON MD N 401.1 ESSENTIAL HYPERTENSION BENIGN 10/24/2012 SHARIF JOHNSON MD N 785.1 palpitations 10/24/2012 SHANIQUE VEGA MD 401.1 ESSENTIAL HYPERTENSION BENIGN 10/24/2012 SHANIQUE VEGA MD 785.1 palpitations 10/24/2012 SHARIF JOHNSON MD N 401.1 ESSENTIAL HYPERTENSION BENIGN 10/24/2012 ELIZABETH ROLDAN, SHARIF N 785.1 palpitations 10/24/2012 ELIZABETH ROLDAN, SHARIF N 401.1 ESSENTIAL HYPERTENSION BENIGN 10/24/2012 ELIZABETH ROLDAN, SHARIF N 785.1 palpitations 10/24/2012 SHANIQUE VEGA MD 401.1 ESSENTIAL HYPERTENSION BENIGN 10/24/2012 SHANIQUE VEGA MD 785.1 palpitations 12/18/2012 CARRIE VILLALOBOS MARIA DE JESUS F 272.4 HYPERLIPIDEMIA 12/18/2012 CARRIE VILLALOBOS MARIA DE JESUS F 790.29 HYPERGLYCEMIA 12/18/2012 CAROLINE MENDOZA MD 272.4 HYPERLIPIDEMIA 12/18/2012 CAROLINE MENDOZA MD 790.29 HYPERGLYCEMIA 12/18/2012 CARRIE VILLALOBOS MARIA DE JESUS F 272.4 HYPERLIPIDEMIA 12/18/2012 CARRIE VILLALOBOS MARIA DE JESUS F 790.29 HYPERGLYCEMIA 12/18/2012 CAROLINE MENDOZA MD 272.4 HYPERLIPIDEMIA 12/18/2012 CAROLINE MENDOZA MD 790.29 HYPERGLYCEMIA 12/18/2012 272.4 HYPERLIPIDEMIA 12/18/2012 790.29 HYPERGLYCEMIA 12/18/2012 272.4 HYPERLIPIDEMIA 12/18/2012 790.29 HYPERGLYCEMIA 12/18/2012 272.4 HYPERLIPIDEMIA 12/18/2012 790.29 HYPERGLYCEMIA 12/18/2012 272.4 HYPERLIPIDEMIA 12/18/2012 790.29 HYPERGLYCEMIA 12/18/2012 272.4 HYPERLIPIDEMIA 12/18/2012 790.29 HYPERGLYCEMIA 12/18/2012 272.4 HYPERLIPIDEMIA 12/18/2012 790.29 HYPERGLYCEMIA 12/18/2012 272.4 HYPERLIPIDEMIA 12/18/2012 790.29 HYPERGLYCEMIA 12/18/2012 272.4 HYPERLIPIDEMIA 12/18/2012 790.29 HYPERGLYCEMIA 12/18/2012 272.4 HYPERLIPIDEMIA 12/18/2012 790.29 HYPERGLYCEMIA 12/18/2012 CARRIE VILLALOBOS MARIA DE JESUS F 272.4 HYPERLIPIDEMIA 12/18/2012 CARRIE VILLALOBOS MARIA DE JESUS F 790.29 HYPERGLYCEMIA 12/18/2012 CAROLINE MENDOZA MD 272.4 HYPERLIPIDEMIA 12/18/2012 CAROLINE MENDOZA MD 790.29 HYPERGLYCEMIA 12/18/2012 CAROLINE MENDOZA MD 272.4 HYPERLIPIDEMIA 12/18/2012 CAROLINE MENDOZA MD 790.29 HYPERGLYCEMIA 12/18/2012 CAROLINE MENDOZA MD 272.4 HYPERLIPIDEMIA 12/18/2012 CAROLINE MENDOZA MD 790.29 HYPERGLYCEMIA 12/18/2012 JOVANNI SOLAR APPLICATIONS DEVELOPMENT ENGINEER, DESI CONRAD 272.4 HYPERLIPIDEMIA 12/18/2012 JOVANNI SOLAR APPLICATIONS DEVELOPMENT ENGINEER, DESI CONRAD 790.29 HYPERGLYCEMIA 12/18/2012 JOVANNI SOLAR APPLICATIONS DEVELOPMENT ENGINEER, DESI CONRAD 272.4 HYPERLIPIDEMIA 12/18/2012 JOVANNI SOLAR APPLICATIONS DEVELOPMENT ENGINEER, DESI CONRAD 790.29 HYPERGLYCEMIA 12/18/2012 MARC SOLAR APPLICATIONS DEVELOPMENT ENGINEER, AUDIE R 272.4 HYPERLIPIDEMIA 12/18/2012 MARC SOLAR APPLICATIONS DEVELOPMENT ENGINEER, AUDIE R 790.29 HYPERGLYCEMIA 12/18/2012 JIMMY SOLAR APPLICATIONS DEVELOPMENT ENGINEER, SHAHNAZ S 272.4 HYPERLIPIDEMIA 12/18/2012 JIMMY SOLAR APPLICATIONS DEVELOPMENT ENGINEER, SHAHNAZ S 790.29 HYPERGLYCEMIA 12/18/2012 JACQUIE SOLAR APPLICATIONS DEVELOPMENT ENGINEER, MAX T 272.4 HYPERLIPIDEMIA 12/18/2012 JACQUIE SOLAR APPLICATIONS DEVELOPMENT ENGINEER, MAX T 790.29 HYPERGLYCEMIA 12/18/2012 JACQUEI SOLAR APPLICATIONS DEVELOPMENT ENGINEER, MAX T 272.4 HYPERLIPIDEMIA 12/18/2012 JACQUIE SOLAR APPLICATIONS DEVELOPMENT ENGINEER, MAX T 790.29 HYPERGLYCEMIA 12/18/2012 HAZEL DO, MIKE K 272.4 HYPERLIPIDEMIA 12/18/2012 HAZEL DO, MIKE K 790.29 HYPERGLYCEMIA 12/18/2012 CAROLINE MENDOZA MD 272.4 HYPERLIPIDEMIA 12/18/2012 CAROLINE MENDOZA MD 790.29 HYPERGLYCEMIA 12/18/2012 CAROLINE MENDOZA MD 272.4 HYPERLIPIDEMIA 12/18/2012 CAROLINE MENDOZA MD 790.29 HYPERGLYCEMIA 12/18/2012 SHARIF JOHNSON MD N 272.4 HYPERLIPIDEMIA 12/18/2012 SHARIF JOHNSON MD N 790.29 HYPERGLYCEMIA 12/18/2012 SHARIF JOHNSON MD N 272.4 HYPERLIPIDEMIA 12/18/2012 SHARIF JOHNSON MD N 790.29 HYPERGLYCEMIA 12/18/2012 SHARIF JOHNSON MD N 272.4 HYPERLIPIDEMIA 12/18/2012 SHARIF JOHNSON MD N 790.29 HYPERGLYCEMIA 12/18/2012 SHARIF JOHNSON MD N 272.4 HYPERLIPIDEMIA 12/18/2012 SHARIF JOHNSON MD N 790.29 HYPERGLYCEMIA 12/18/2012 SHARIF JOHNSON MD N 272.4 HYPERLIPIDEMIA 12/18/2012 SHARIF JOHNSON MD N 790.29 HYPERGLYCEMIA 12/18/2012 JOVANNI BURGOS DESI CONRAD 272.4 HYPERLIPIDEMIA 12/18/2012 JOVANNI BURGOS DESI CONRAD 790.29 HYPERGLYCEMIA 12/18/2012 SHARIF JOHNSON MD N 272.4 HYPERLIPIDEMIA 12/18/2012 SHARIF JOHNSON MD N 790.29 HYPERGLYCEMIA 12/18/2012 SHARIF JOHNSON MD N 272.4 HYPERLIPIDEMIA 12/18/2012 SHARIF JOHNSON MD N 790.29 HYPERGLYCEMIA 12/18/2012 JOVANNI BURGOS DESI CONRAD 272.4 HYPERLIPIDEMIA 12/18/2012 JOVANNI BURGOS DESI CONRAD 790.29 HYPERGLYCEMIA 12/18/2012 SHARIF JOHNSON MD N 272.4 HYPERLIPIDEMIA 12/18/2012 SHARIF JOHNSON MD N 790.29 HYPERGLYCEMIA 12/18/2012 SHARIF JOHNSON MD N 272.4 HYPERLIPIDEMIA 12/18/2012 SHARIF JOHNSON MD N 790.29 HYPERGLYCEMIA 12/18/2012 JANINA SCHREIBER, MASSIEL M 272.4 HYPERLIPIDEMIA 12/18/2012 JANINA BOOKKEEPER RECEPTIONIST, MASSIEL M 790.29 HYPERGLYCEMIA 12/18/2012 MIKE HAZEL DO K 272.4 HYPERLIPIDEMIA 12/18/2012 HAZEL DO MIKE K 790.29 HYPERGLYCEMIA 12/18/2012 SHARIF JOHNSON MD N 272.4 HYPERLIPIDEMIA 12/18/2012 SHARIF JOHNSON MD N 790.29 HYPERGLYCEMIA 12/18/2012 SHANIQUE VEGA MD 272.4 HYPERLIPIDEMIA 12/18/2012 SHANIQUE VEGA MD 790.29 HYPERGLYCEMIA 12/18/2012 SHARIF JOHNSON MD N 272.4 HYPERLIPIDEMIA 12/18/2012 SHARIF JOHNSON MD N 790.29 HYPERGLYCEMIA 12/18/2012 SHARIF JOHNSON MD N 272.4 HYPERLIPIDEMIA 12/18/2012 SHARIF JOHNSON MD N 790.29 HYPERGLYCEMIA 12/18/2012 SHANIQUE VEGA MD 272.4 HYPERLIPIDEMIA 12/18/2012 SHANIQUE VEGA MD 790.29 HYPERGLYCEMIA 05/06/2013 728.85 SPASM OF MUSCLE 05/06/2013 728.85 SPASM OF MUSCLE 05/06/2013 728.85 SPASM OF MUSCLE 05/06/2013 728.85 SPASM OF MUSCLE 05/06/2013 728.85 SPASM OF MUSCLE 05/06/2013 728.85 SPASM OF MUSCLE 05/06/2013 728.85 SPASM OF MUSCLE 05/06/2013 CARRIE VILLALOBOS MARIA DE JESUS F 728.85 SPASM OF MUSCLE 05/06/2013 CAROLINE MENDOZA MD 728.85 SPASM OF MUSCLE 05/06/2013 CAROLINE MENDOZA MD 728.85 SPASM OF MUSCLE 05/06/2013 CAROLINE MENDOZA MD 728.85 SPASM OF MUSCLE 05/06/2013 DESI BAIG APRN 728.85 SPASM OF MUSCLE 05/06/2013 DESI BAIG APRN 728.85 SPASM OF MUSCLE 05/06/2013 AUDIE MARC APRN 728.85 SPASM OF MUSCLE 05/06/2013 SHAHNAZ MARQUEZ APRN 728.85 SPASM OF MUSCLE 05/06/2013 MAX DHILLON APRN 728.85 SPASM OF MUSCLE 05/06/2013 MAX DHILLON APRN 728.85 SPASM OF MUSCLE 05/06/2013 MIKE HAZEL DO 728.85 SPASM OF MUSCLE 05/06/2013 CAROLINE MENDOZA MD 728.85 SPASM OF MUSCLE 05/06/2013 CAROLINE MENDOZA MD 728.85 SPASM OF MUSCLE 05/06/2013 SHARIF JOHNSON MD 728.85 SPASM OF MUSCLE 05/06/2013 SHARIF JOHNSON MD 728.85 SPASM OF MUSCLE 05/06/2013 SHARIF JOHNSON MD 728.85 SPASM OF MUSCLE 05/06/2013 SHARIF JOHNSON MD 728.85 SPASM OF MUSCLE 05/06/2013 SHARIF JOHNSON MD 728.85 SPASM OF MUSCLE 05/06/2013 DESI BAIG APRN 728.85 SPASM OF MUSCLE 05/06/2013 SHARIF JOHNSON MD 728.85 SPASM OF MUSCLE 05/06/2013 SHARIF JOHNSON MD 728.85 SPASM OF MUSCLE 05/06/2013 DESI BAIG APRN 728.85 SPASM OF MUSCLE 05/06/2013 SHARIF JOHNSON MD 728.85 SPASM OF MUSCLE 05/06/2013 SHARIF JOHNSON MD 728.85 SPASM OF MUSCLE 05/06/2013 MASSIEL VEGA 728.85 SPASM OF MUSCLE 05/06/2013 MIKE HAZEL DO 728.85 SPASM OF MUSCLE 05/06/2013 SHARIF JOHNSON MD 728.85 SPASM OF MUSCLE 05/06/2013 SHANIQUE VEGA MD 728.85 SPASM OF MUSCLE 05/06/2013 SHARIF JOHNSON MD 728.85 SPASM OF MUSCLE 05/06/2013 SHARIF JOHNSON MD 728.85 SPASM OF MUSCLE 05/06/2013 SHANIQUE VEGA MD 728.85 SPASM OF MUSCLE 06/05/2013 338.29 CHRONIC PAIN 06/05/2013 338.29 CHRONIC PAIN 06/05/2013 338.29 CHRONIC PAIN 06/05/2013 338.29 CHRONIC PAIN 06/05/2013 338.29 CHRONIC PAIN 06/05/2013 MARIA DE JESUS BUTLER DO 338.29 CHRONIC PAIN 06/05/2013 CAROLINE MENDOZA MD 338.29 CHRONIC PAIN 06/05/2013 CAROLINE MENDOZA MD 338.29 CHRONIC PAIN 06/05/2013 CAROLINE MENDOZA MD 338.29 CHRONIC PAIN 06/05/2013 JOVANNI BURGOS, DESI HOUSTON 338.29 CHRONIC PAIN 06/05/2013 JOVANNI BURGOS DESI HOUSTON 338.29 CHRONIC PAIN 06/05/2013 AUDIE MARC APRN 338.29 CHRONIC PAIN 06/05/2013 SHAHNAZ MARQUEZ APRN 338.29 CHRONIC PAIN 06/05/2013 MAX DHILLON APRN 338.29 CHRONIC PAIN 06/05/2013 MAX DHILLON APRN 338.29 CHRONIC PAIN 06/05/2013 MIKE HAZEL DO 338.29 CHRONIC PAIN 06/05/2013 CAROLINE MENDOZA MD 338.29 CHRONIC PAIN 06/05/2013 CAROLINE MENDOZA MD 338.29 CHRONIC PAIN 06/05/2013 SHARIF JOHNSON MD 338.29 CHRONIC PAIN 06/05/2013 SHARIF JOHNSON MD 338.29 CHRONIC PAIN 06/05/2013 ELIZABETH MD, SHARIF N 338.29 CHRONIC PAIN 06/05/2013 SHARIF JOHNSON MD N 338.29 CHRONIC PAIN 06/05/2013 SHARIF JOHNSON MD N 338.29 CHRONIC PAIN 06/05/2013 JOVANNI BURGOS DESI HOUSTON 338.29 CHRONIC PAIN 06/05/2013 SHARIF JOHNSON MD 338.29 CHRONIC PAIN 06/05/2013 SHARIF JOHNSON MD 338.29 CHRONIC PAIN 06/05/2013 DESI BAIG APRN 338.29 CHRONIC PAIN 06/05/2013 SHARIF JOHNSON MD N 338.29 CHRONIC PAIN 06/05/2013 SHARIF JOHNSON MD 338.29 CHRONIC PAIN 06/05/2013 MASSIEL VEGA 338.29 CHRONIC PAIN 06/05/2013 MIKE HAZEL DO 338.29 CHRONIC PAIN 06/05/2013 ELIZABETH ROLDAN, SHARIF Menjivar 338.29 CHRONIC PAIN 06/05/2013 SHANIQUE VEGA MD 338.29 CHRONIC PAIN 06/05/2013 SHARIF JOHNSON MD 338.29 CHRONIC PAIN 06/05/2013 SHARIF JOHNSON MD 338.29 CHRONIC PAIN 06/05/2013 SHANIQUE VEGA MD 338.29 CHRONIC PAIN 07/01/2013 491.21 BRONCHITIS AECB 07/01/2013 491.21 BRONCHITIS AECB 07/01/2013 491.21 BRONCHITIS AECB 07/01/2013 491.21 BRONCHITIS AECB 07/01/2013 MARIA DE JESUS BUTLER DO 491.21 BRONCHITIS AECB 07/01/2013 CAROLINE MENDOZA MD 491.21 BRONCHITIS AECB 07/01/2013 CAROLINE MENDOZA MD 491.21 BRONCHITIS AECB 07/01/2013 CAROLINE MENDOZA MD 491.21 BRONCHITIS AECB 07/01/2013 DESI BAIG APRN 491.21 BRONCHITIS AECB 07/01/2013 DESI BAIG APRN 491.21 BRONCHITIS AECB 07/01/2013 AUDIE MARC APRN 491.21 BRONCHITIS AECB 07/01/2013 SHAHNAZ MARQUEZ APRN 491.21 BRONCHITIS AECB 07/01/2013 MAX DHILLON APRN 491.21 BRONCHITIS AECB 07/01/2013 MAX DHILLON APRN 491.21 BRONCHITIS AECB 07/01/2013 HAZEL DO, MIKE K 491.21 BRONCHITIS AECB 07/01/2013 CAROLINE MENDOZA MD 491.21 BRONCHITIS AECB 07/01/2013 CAROLINE MENDOZA MD 491.21 BRONCHITIS AECB 07/01/2013 ELIZABETH ROLDAN, SHARIF Menjivar 491.21 BRONCHITIS AECB 07/01/2013 ELIZABETH ROLDAN, SHARIF N 491.21 BRONCHITIS AECB 07/01/2013 ELIZABETH ROLDAN, SHARIF N 491.21 BRONCHITIS AECB 07/01/2013 ELIZABETH ROLDAN, SHARIF N 491.21 BRONCHITIS AECB 07/01/2013 ELIZABETH ROLDAN, SHARIF N 491.21 BRONCHITIS AECB 07/01/2013 JOVANNI BURGOS, DESI CONRAD 491.21 BRONCHITIS AECB 07/01/2013 ELIZABETH ROLDAN, SHARIF N 491.21 BRONCHITIS AECB 07/01/2013 ELIZABETH ROLDAN, SHARIF Menjivar 491.21 BRONCHITIS AECB 07/01/2013 JOVANNI BURGOS, DESI CONRAD 491.21 BRONCHITIS AECB 07/01/2013 ELIZABETH ROLDAN, SHARIF N 491.21 BRONCHITIS AECB 07/01/2013 ELIZABETH ROLDAN, SHARIF N 491.21 BRONCHITIS AECB 07/01/2013 MASSIEL VEGA 491.21 BRONCHITIS AECB 07/01/2013 MIKE HAZEL DO 491.21 BRONCHITIS AECB 07/01/2013 ELIZABETH ROLDAN, SHARIF Menjivar 491.21 BRONCHITIS AECB 07/01/2013 SHANIQUE VEGA MD 491.21 BRONCHITIS AECB 07/01/2013 SHARIF JOHNSON MD 491.21 BRONCHITIS AECB 07/01/2013 SHARIF JOHNSON MD 491.21 BRONCHITIS AECB 07/01/2013 SHANIQUE VEGA MD 491.21 BRONCHITIS AECB 07/09/2013 SHANIQUE VEGA MD Ot 272.4 07/09/2013 SHANIQUE VEGA MD Ot 300.00 07/09/2013 SHANIQUE VEGA MD Ot 305.1 07/09/2013 SHANIQUE VEGA MD Ot 311 07/09/2013 SHANIQUE VEGA MD F Ot 338.29 07/09/2013 GARY ROLDAN, SHANIQUE Funk Ot 401.9 07/09/2013 GARY ROLDAN, SHANIQUE Funk Ot 414.01 07/09/2013 GARY ROLDAN, SHANIQUE Funk Ot 491.21 07/09/2013 GARY ROLDAN, SHANIQUE Funk Ot 724.2 07/09/2013 GARY ROLDAN, SHANIQUE Funk Ot 790.29 07/09/2013 GARY ROLDAN, SHANIQUE Funk Ot E932.0 09/22/2013 CAROLINE MENDOZA MD 271.3 GLUCOSE INTOLERANCE 09/22/2013 CAROLINE MENDOZA MD V05.8 ZOSTAVAX DX 09/22/2013 JOVANNI BURGOS DESI CONRAD 271.3 GLUCOSE INTOLERANCE 09/22/2013 JOVANNI BURGOS, DESI CONRAD V05.8 ZOSTAVAX DX 09/22/2013 JOVANNI BURGOS DESI CONRAD 271.3 GLUCOSE INTOLERANCE 09/22/2013 JOVANNI BURGOS DESI CONRAD V05.8 ZOSTAVAX DX 09/22/2013 STEPHEN MARC APRNIA R 271.3 GLUCOSE INTOLERANCE 09/22/2013 STEPHEN MARC APRNIA R V05.8 ZOSTAVAX DX 09/22/2013 SHAHNAZ MARQUEZ APRN S 271.3 GLUCOSE INTOLERANCE 09/22/2013 SHAHNAZ MARQUEZ APRN S V05.8 ZOSTAVAX DX 09/22/2013 MAX DHILLON APRN 271.3 GLUCOSE INTOLERANCE 09/22/2013 MAX DHILLON APRN V05.8 ZOSTAVAX DX 09/22/2013 MAX DHILLON APRN 271.3 GLUCOSE INTOLERANCE 09/22/2013 MAX DHILLON APRN V05.8 ZOSTAVAX DX 09/22/2013 MIKE HAZEL DO K 271.3 GLUCOSE INTOLERANCE 09/22/2013 MIKE HAZEL DO K V05.8 ZOSTAVAX DX 09/22/2013 CAROLINE MENDOZA MD 271.3 GLUCOSE INTOLERANCE 09/22/2013 CAROLINE MENDOZA MD V05.8 ZOSTAVAX DX 09/22/2013 CAROLINE MENDOZA MD 271.3 GLUCOSE INTOLERANCE 09/22/2013 CAROLINE MENDOZA MD V05.8 ZOSTAVAX DX 09/22/2013 SHARIF JOHNSON MD 271.3 GLUCOSE INTOLERANCE 09/22/2013 SHARIF JOHNSON MD V05.8 ZOSTAVAX DX 09/22/2013 SHARIF JOHNSON MD 271.3 GLUCOSE INTOLERANCE 09/22/2013 SHARIF JOHNSON MD V05.8 ZOSTAVAX DX 09/22/2013 SHARIF JOHNSON MD 271.3 GLUCOSE INTOLERANCE 09/22/2013 SHARIF JOHNSON MD V05.8 ZOSTAVAX DX 09/22/2013 SHARIF JOHNSON MD 271.3 GLUCOSE INTOLERANCE 09/22/2013 SHARIF JOHNSON MD V05.8 ZOSTAVAX DX 09/22/2013 SHARIF JOHNSON MD 271.3 GLUCOSE INTOLERANCE 09/22/2013 SHARIF JOHNSON MD V05.8 ZOSTAVAX DX 09/22/2013 JOVANNI BURGOS DESI HOUSTON 271.3 GLUCOSE INTOLERANCE 09/22/2013 JOVANNI BURGOS DESI HOUSTON V05.8 ZOSTAVAX DX 09/22/2013 SHARIF JOHNSON MD 271.3 GLUCOSE INTOLERANCE 09/22/2013 SHARIF JOHNSON MD V05.8 ZOSTAVAX DX 09/22/2013 SHARIF JOHNSON MD 271.3 GLUCOSE INTOLERANCE 09/22/2013 SHARIF JOHNSON MD V05.8 ZOSTAVAX DX 09/22/2013 JOVANNI BURGOS DESI HOUSTON 271.3 GLUCOSE INTOLERANCE 09/22/2013 JOVANNI BURGOS DESI HOUSTON V05.8 ZOSTAVAX DX 09/22/2013 SHARIF JOHNSON MD 271.3 GLUCOSE INTOLERANCE 09/22/2013 SHARIF JOHNSON MD V05.8 ZOSTAVAX DX 09/22/2013 SHARIF JOHNSON MD 271.3 GLUCOSE INTOLERANCE 09/22/2013 SHARIF JOHNSON MD V05.8 ZOSTAVAX DX 09/22/2013 MASSIEL VEGA 271.3 GLUCOSE INTOLERANCE 09/22/2013 MASSIEL VEGA V05.8 ZOSTAVAX DX 09/22/2013 HAZEL DO, MIKE K 271.3 GLUCOSE INTOLERANCE 09/22/2013 HAZEL DO, MIKE K V05.8 ZOSTAVAX DX 09/22/2013 SHARIF JOHNSON MD 271.3 GLUCOSE INTOLERANCE 09/22/2013 ELIZABETH ROLDAN, SHARIF Menjivar V05.8 ZOSTAVAX DX 09/22/2013 SHANIQUE VEGA MD 271.3 GLUCOSE INTOLERANCE 09/22/2013 SHANIQUE VEGA MD V05.8 ZOSTAVAX DX 09/22/2013 SHARIF JOHNSON MD 271.3 GLUCOSE INTOLERANCE 09/22/2013 SHARIF JOHNSON MD V05.8 ZOSTAVAX DX 09/22/2013 SHARIF JOHNSON MD 271.3 GLUCOSE INTOLERANCE 09/22/2013 SHAIRF JOHNSON MD V05.8 ZOSTAVAX DX 09/22/2013 SHANIQUE VEGA MD 271.3 GLUCOSE INTOLERANCE 09/22/2013 SHANIQUE VEGA MD V05.8 ZOSTAVAX DX 11/09/2013 AUDIE MARC APRN R 786.07 WHEEZING 11/09/2013 AUDIE MARC APRN R 786.2 COUGH 11/09/2013 AUDIE MARC APRN R V65.42 COUNSELING - SMOKING CESSATION 11/09/2013 SHAHNAZ MARQUEZ APRN S 786.07 WHEEZING 11/09/2013 SHAHNAZ MARQUEZ APRN S 786.2 COUGH 11/09/2013 SHAHNAZ MARQUEZ APRN S V65.42 COUNSELING - SMOKING CESSATION 11/09/2013 MAX DHILLON APRN 786.07 WHEEZING 11/09/2013 MAX DHILLON APRN 786.2 COUGH 11/09/2013 MAX DHILLON APRN V65.42 COUNSELING - SMOKING CESSATION 11/09/2013 MAX DHILLON APRN 786.07 WHEEZING 11/09/2013 MAX DHILLON APRN 786.2 COUGH 11/09/2013 MAX DHILLON APRN V65.42 COUNSELING - SMOKING CESSATION 11/09/2013 CHANDA HAZEL DOA K 786.07 WHEEZING 11/09/2013 HAZEL DO, MIKE K 786.2 COUGH 11/09/2013 HAZEL DO MIKE K V65.42 COUNSELING - SMOKING CESSATION 11/09/2013 CAROLINE MENDOZA MD 786.07 WHEEZING 11/09/2013 CAROLINE MENDOZA MD 786.2 COUGH 11/09/2013 CAROLINE MENDOZA MD V65.42 COUNSELING - SMOKING CESSATION 11/09/2013 CAROLINE MENDOZA MD 786.07 WHEEZING 11/09/2013 CAROLINE MENDOZA MD M 786.2 COUGH 11/09/2013 CAROLINE MENDOZA MD V65.42 COUNSELING - SMOKING CESSATION 11/09/2013 SHARIF JOHNSON MD N 786.07 WHEEZING 11/09/2013 SHARIF JOHNSON MD N 786.2 COUGH 11/09/2013 SHARIF JOHNSON MD N V65.42 COUNSELING - SMOKING CESSATION 11/09/2013 SHARIF JOHNSON MD N 786.07 WHEEZING 11/09/2013 SHARIF JOHNSON MD N 786.2 COUGH 11/09/2013 SHARIF JOHNSON MD N V65.42 COUNSELING - SMOKING CESSATION 11/09/2013 SHARIF JOHNSON MD N 786.07 WHEEZING 11/09/2013 SHARIF JOHNSON MD N 786.2 COUGH 11/09/2013 SHARIF JOHNSON MD N V65.42 COUNSELING - SMOKING CESSATION 11/09/2013 SHARIF JOHNSON MD N 786.07 WHEEZING 11/09/2013 SHARIF JOHNSON MD N 786.2 COUGH 11/09/2013 SHARIF JOHNSON MD N V65.42 COUNSELING - SMOKING CESSATION 11/09/2013 SHARIF JOHNSON MD N 786.07 WHEEZING 11/09/2013 SHARIF JOHNSON MD N 786.2 COUGH 11/09/2013 SHARIF JOHNSON MD N V65.42 COUNSELING - SMOKING CESSATION 11/09/2013 DESI BAIG APRN 786.07 WHEEZING 11/09/2013 DESI BAIG APRN 786.2 COUGH 11/09/2013 DESI BAIG APRN V65.42 COUNSELING - SMOKING CESSATION 11/09/2013 SHARIF JOHNSON MD N 786.07 WHEEZING 11/09/2013 SHARIF JOHNSON MD N 786.2 COUGH 11/09/2013 GWEN JOHNSON MDY N V65.42 COUNSELING - SMOKING CESSATION 11/09/2013 SHARIF JOHNSON MD N 786.07 WHEEZING 11/09/2013 SHARIF JOHNSON MD 786.2 COUGH 11/09/2013 SHARIF JOHNSON MD V65.42 COUNSELING - SMOKING CESSATION 11/09/2013 JOVANNI WOODSN, DESI CONRAD 786.07 WHEEZING 11/09/2013 JOVANNI WOODSN, DESI CONRAD 786.2 COUGH 11/09/2013 JOVANNI WOODSNDESI V65.42 COUNSELING - SMOKING CESSATION 11/09/2013 SHARIF JOHNSON MD 786.07 WHEEZING 11/09/2013 SHARIF JOHNSON MD N 786.2 COUGH 11/09/2013 SHARIF JOHNSON MD V65.42 COUNSELING - SMOKING CESSATION 11/09/2013 SHARIF JOHNSON MD 786.07 WHEEZING 11/09/2013 SHARIF JOHNSON MD 786.2 COUGH 11/09/2013 SHARIF JOHNSON MD V65.42 COUNSELING - SMOKING CESSATION 11/09/2013 MASSIEL VEGA M 786.07 WHEEZING 11/09/2013 MASSIEL VEGA M 786.2 COUGH 11/09/2013 MASSIEL VEGA M V65.42 COUNSELING - SMOKING CESSATION 11/09/2013 HAZEL DO, MIKE K 786.07 WHEEZING 11/09/2013 HAZEL DO, MIKE K 786.2 COUGH 11/09/2013 HAZEL DO, MIKE K V65.42 COUNSELING - SMOKING CESSATION 11/09/2013 SHARIF JOHNSON MD 786.07 WHEEZING 11/09/2013 SHARIF JOHNSON MD 786.2 COUGH 11/09/2013 SHARIF JOHNSON MD V65.42 COUNSELING - SMOKING CESSATION 11/09/2013 SHANIQUE VEGA MD 786.07 WHEEZING 11/09/2013 SHANIQUE VEGA MD 786.2 COUGH 11/09/2013 SHANIQUE VEGA MD V65.42 COUNSELING - SMOKING CESSATION 11/09/2013 SHARIF JOHNSON MD 786.07 WHEEZING 11/09/2013 SHARIF JOHNSON MD 786.2 COUGH 11/09/2013 SHARIF JOHNSON MD V65.42 COUNSELING - SMOKING CESSATION 11/09/2013 SHARIF JOHNSON MD 786.07 WHEEZING 11/09/2013 SHARIF JOHNSON MD 786.2 COUGH 11/09/2013 SHARIF JOHNSON MD V65.42 COUNSELING - SMOKING CESSATION 11/09/2013 SHANIQUE VEGA MD 786.07 WHEEZING 11/09/2013 SHANIQUE VEGA MD 786.2 COUGH 11/09/2013 SHANIQUE VEGA MD V65.42 COUNSELING - SMOKING CESSATION 11/12/2013 JIMMY WOODSN, SHAHNAZ S 486 PNEUMONIA UNSPECIFIED 11/12/2013 JACQUIE SOLAR APPLICATIONS DEVELOPMENT ENGINEER, MAX T 486 PNEUMONIA UNSPECIFIED 11/12/2013 JACQUIE SOLAR APPLICATIONS DEVELOPMENT ENGINEER, MAX T 486 PNEUMONIA UNSPECIFIED 11/12/2013 ILIR VILLALOBOS, MIKE K 486 PNEUMONIA UNSPECIFIED 11/12/2013 REJI ROLDAN, CAROLINE M 486 PNEUMONIA UNSPECIFIED 11/12/2013 REJI ROLDAN, CAROLINE M 486 PNEUMONIA UNSPECIFIED 11/12/2013 ELIZABETH ROLDAN, SHARIF N 486 PNEUMONIA UNSPECIFIED 11/12/2013 ELIZABETH ROLDAN, SHARIF N 486 PNEUMONIA UNSPECIFIED 11/12/2013 ELIZABETH ROLDAN, SHARIF N 486 PNEUMONIA UNSPECIFIED 11/12/2013 ELIZABETH ROLDAN, SHARIF N 486 PNEUMONIA UNSPECIFIED 11/12/2013 ELIZABETH ROLDAN, SHARIF N 486 PNEUMONIA UNSPECIFIED 11/12/2013 JOVANNI BURGOS, DESI CONRAD 486 PNEUMONIA UNSPECIFIED 11/12/2013 ELIZABETH ROLDAN, SHARIF N 486 PNEUMONIA UNSPECIFIED 11/12/2013 ELIZABETH ROLDAN, SHARIF N 486 PNEUMONIA UNSPECIFIED 11/12/2013 JOVANNI BURGOS, DESI CONRAD 486 PNEUMONIA UNSPECIFIED 11/12/2013 ELIZABETH ROLDAN, SHARIF N 486 PNEUMONIA UNSPECIFIED 11/12/2013 ELIZABETH ROLDAN, SHARIF N 486 PNEUMONIA UNSPECIFIED 11/12/2013 MASSIEL VEGA M 486 PNEUMONIA UNSPECIFIED 11/12/2013 ILIR VILLALOBOS, MIKE K 486 PNEUMONIA UNSPECIFIED 11/12/2013 ELIZABETH ROLDAN, SHARIF N 486 PNEUMONIA UNSPECIFIED 11/12/2013 SHANIQUE VEGA MD 486 PNEUMONIA UNSPECIFIED 11/12/2013 ELIZABETH ROLDAN, SHARIF N 486 PNEUMONIA UNSPECIFIED 11/12/2013 ELIZABETH ROLDAN, SHARIF N 486 PNEUMONIA UNSPECIFIED 11/12/2013 SHANIQUE VEGA MD 486 PNEUMONIA UNSPECIFIED 11/14/2013 SHARIF JOHNSON MD Ot 272.4 HYPERLIPIDEMIA NEC/NOS 11/14/2013 ELIZABETH MD, SHARIF N Ot 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 11/14/2013 ELIZABETH ROLDAN, SHARIF N Ot 401.9 HYPERTENSION NOS 11/14/2013 SHARIF JOHNSON MD Ot 491.21 OBSTR CHRONIC BRONCHITIS, W (ACUTE) EXAC 11/14/2013 SHARIF JHONSON MD N Ot 715.90 OSTEOARTHROS NOS-UNSPEC 12/11/2013 MAX DHILLON APRN 466.0 BRONCHITIS, ACUTE 12/11/2013 MAX DHILLON APRN 466.0 BRONCHITIS, ACUTE 12/11/2013 MIKE HAZEL DO K 466.0 BRONCHITIS, ACUTE 12/11/2013 CAROLINE MENDOZA MD 466.0 BRONCHITIS, ACUTE 12/11/2013 CAROLINE MENDOZA MD 466.0 BRONCHITIS, ACUTE 12/11/2013 SHARIF JOHNSON MD N 466.0 BRONCHITIS, ACUTE 12/11/2013 SHARIF JOHNSON MD N 466.0 BRONCHITIS, ACUTE 12/11/2013 SHARIF JOHNSON MD N 466.0 BRONCHITIS, ACUTE 12/11/2013 SHARIF JOHNSON MD N 466.0 BRONCHITIS, ACUTE 12/11/2013 SHARIF JOHNSON MD N 466.0 BRONCHITIS, ACUTE 12/11/2013 DESI BAIG APRN 466.0 BRONCHITIS, ACUTE 12/11/2013 SHARIF JOHNSON MD N 466.0 BRONCHITIS, ACUTE 12/11/2013 SHAIRF JOHNSON MD N 466.0 BRONCHITIS, ACUTE 12/11/2013 DESI BAIG APRN 466.0 BRONCHITIS, ACUTE 12/11/2013 SHARIF JOHNSON MD N 466.0 BRONCHITIS, ACUTE 12/11/2013 SHARIF JOHNSON MD N 466.0 BRONCHITIS, ACUTE 12/11/2013 MASSIEL VEGA 466.0 BRONCHITIS, ACUTE 12/11/2013 MIKE HAZEL DO K 466.0 BRONCHITIS, ACUTE 12/11/2013 SHARIF JOHNSON MD N 466.0 BRONCHITIS, ACUTE 12/11/2013 SHANIQUE VEGA MD 466.0 BRONCHITIS, ACUTE 12/11/2013 SHARIF JOHNSON MD N 466.0 BRONCHITIS, ACUTE 12/11/2013 SHARIF JOHNSON MD N 466.0 BRONCHITIS, ACUTE 12/11/2013 SHANIQUE VEGA MD 466.0 BRONCHITIS, ACUTE 12/15/2013 MAX DHILLON APRN T 719.07 EDEMA FOOT 12/15/2013 MAX DHILLON APRN T 785.2 MURMURS, UNDIAGNOSED CARDIAC 12/15/2013 MAX DHILLON APRN T 786.05 SHORTNESS OF BREATH 12/15/2013 HAZEL DO, MIKE K 719.07 EDEMA FOOT 12/15/2013 HAZEL DO, MIKE K 785.2 MURMURS, UNDIAGNOSED CARDIAC 12/15/2013 HAZEL DO, MIKE K 786.05 SHORTNESS OF BREATH 12/15/2013 CAROLINE MENDOZA MD 719.07 EDEMA FOOT 12/15/2013 CAROLINE MENDOZA MD 785.2 MURMURS, UNDIAGNOSED CARDIAC 12/15/2013 CAROLINE MENDOZA MD 786.05 SHORTNESS OF BREATH 12/15/2013 CAROLINE MENDOZA MD 719.07 EDEMA FOOT 12/15/2013 CAROLINE MENDOZA MD 785.2 MURMURS, UNDIAGNOSED CARDIAC 12/15/2013 CAROLINE MENDOZA MD 786.05 SHORTNESS OF BREATH 12/15/2013 SHARIF JOHNSON MD N 719.07 EDEMA FOOT 12/15/2013 SHARIF JOHNSON MD N 785.2 MURMURS, UNDIAGNOSED CARDIAC 12/15/2013 SHARIF JOHNSON MD N 786.05 SHORTNESS OF BREATH 12/15/2013 SHARIF JOHNSON MD N 719.07 EDEMA FOOT 12/15/2013 SHARIF JOHNSON MD N 785.2 MURMURS, UNDIAGNOSED CARDIAC 12/15/2013 SHARIF JOHNSON MD N 786.05 SHORTNESS OF BREATH 12/15/2013 SHARIF JOHNSON MD N 719.07 EDEMA FOOT 12/15/2013 SHARIF JOHNSON MD N 785.2 MURMURS, UNDIAGNOSED CARDIAC 12/15/2013 SHARIF JOHNSON MD N 786.05 SHORTNESS OF BREATH 12/15/2013 SHARIF JOHNSON MD N 719.07 EDEMA FOOT 12/15/2013 SHARIF JOHNSON MD N 785.2 MURMURS, UNDIAGNOSED CARDIAC 12/15/2013 SHARIF JOHNSON MD N 786.05 SHORTNESS OF BREATH 12/15/2013 SHARIF JOHNSON MD N 719.07 EDEMA FOOT 12/15/2013 SHARIF JOHNSON MD N 785.2 MURMURS, UNDIAGNOSED CARDIAC 12/15/2013 SHARIF JOHNSON MD N 786.05 SHORTNESS OF BREATH 12/15/2013 JOVANNI BURGOSDESI 719.07 EDEMA FOOT 12/15/2013 JOVANNI BURGOS, DESI CONRAD 785.2 MURMURS, UNDIAGNOSED CARDIAC 12/15/2013 JOVANNI BURGOS DESI CONRAD 786.05 SHORTNESS OF BREATH 12/15/2013 SHARIF JOHNSON MD N 719.07 EDEMA FOOT 12/15/2013 SHARIF JOHNSON MD N 785.2 MURMURS, UNDIAGNOSED CARDIAC 12/15/2013 SHARIF JOHNSON MD N 786.05 SHORTNESS OF BREATH 12/15/2013 SHARIF JOHNSON MD N 719.07 EDEMA FOOT 12/15/2013 SHARIF JOHNSON MD N 785.2 MURMURS, UNDIAGNOSED CARDIAC 12/15/2013 SHARIF JOHNSON MD N 786.05 SHORTNESS OF BREATH 12/15/2013 JOVANNI BURGOS DESI CONRAD 719.07 EDEMA FOOT 12/15/2013 JOVANNI BURGOS DESI CONRAD 785.2 MURMURS, UNDIAGNOSED CARDIAC 12/15/2013 JOVANNI BURGOS DESI CONRAD 786.05 SHORTNESS OF BREATH 12/15/2013 SHARIF JOHNSON MD N 719.07 EDEMA FOOT 12/15/2013 SHARIF JOHNSON MD N 785.2 MURMURS, UNDIAGNOSED CARDIAC 12/15/2013 SHARIF JOHNSON MD N 786.05 SHORTNESS OF BREATH 12/15/2013 SHARIF JOHNSON MD N 719.07 EDEMA FOOT 12/15/2013 SHARIF JOHNSON MD N 785.2 MURMURS, UNDIAGNOSED CARDIAC 12/15/2013 SHARIF JOHNSON MD N 786.05 SHORTNESS OF BREATH 12/15/2013 MASSIEL VEGA 719.07 EDEMA FOOT 12/15/2013 MASSIEL VEGA 785.2 MURMURS, UNDIAGNOSED CARDIAC 12/15/2013 MASSIEL VEGA 786.05 SHORTNESS OF BREATH 12/15/2013 HAZEL DO, MIKE K 719.07 EDEMA FOOT 12/15/2013 ILIR VILLALOBOS, MIKE K 785.2 MURMURS, UNDIAGNOSED CARDIAC 12/15/2013 ILIR VILLALOBOS, MIKE K 786.05 SHORTNESS OF BREATH 12/15/2013 SHARIF JOHNSON MD N 719.07 EDEMA FOOT 12/15/2013 SHARIF JOHNSON MD 785.2 MURMURS, UNDIAGNOSED CARDIAC 12/15/2013 SHARIF JOHNSON MD 786.05 SHORTNESS OF BREATH 12/15/2013 SHANIQUE VEGA MD 719.07 EDEMA FOOT 12/15/2013 SHANIQUE VEGA MD 785.2 MURMURS, UNDIAGNOSED CARDIAC 12/15/2013 SHANIQUE VEGA MD 786.05 SHORTNESS OF BREATH 12/15/2013 SHARIF JOHNSON MD 719.07 EDEMA FOOT 12/15/2013 SHARIF JOHNSON MD 785.2 MURMURS, UNDIAGNOSED CARDIAC 12/15/2013 SHARIF JOHNSON MD 786.05 SHORTNESS OF BREATH 12/15/2013 SHARIF JOHNSON MD N 719.07 EDEMA FOOT 12/15/2013 SHARIF JOHNSON MD 785.2 MURMURS, UNDIAGNOSED CARDIAC 12/15/2013 SHARIF JOHNSON MD N 786.05 SHORTNESS OF BREATH 12/15/2013 SHANIQUE VEGA MD 719.07 EDEMA FOOT 12/15/2013 SHANIQUE VEGA MD 785.2 MURMURS, UNDIAGNOSED CARDIAC 12/15/2013 SHANIQUE VEGA MD 786.05 SHORTNESS OF BREATH 12/30/2013 ILIR MIKE VILLALOBOS K 782.3 Edema 12/30/2013 CAROLINE MENDOZA MD 782.3 Edema 12/30/2013 CAROLINE MENDOZA MD 782.3 Edema 12/30/2013 SHARIF JOHNSON MD N 782.3 Edema 12/30/2013 SHARIF JOHNSON MD 782.3 Edema 12/30/2013 SHARIF JOHNSON MD N 782.3 Edema 12/30/2013 SHARIF JOHNSON MD N 782.3 Edema 12/30/2013 SHARIF JOHNSON MD 782.3 Edema 12/30/2013 DESI BAIG APRN 782.3 Edema 12/30/2013 ELIZABETH ROLDAN, SHARIF N 782.3 Edema 12/30/2013 ELIZABETH ROLDAN, SHARIF N 782.3 Edema 12/30/2013 DESI BAIG APRN 782.3 Edema 12/30/2013 ELIZABETH ROLDAN, SHARIF N 782.3 Edema 12/30/2013 ELIZABETH ROLDAN, SHARIF N 782.3 Edema 12/30/2013 MASSIEL VEGA 782.3 Edema 12/30/2013 HAZEL MIKE VILLALOBOS Dionne 782.3 Edema 12/30/2013 ELIZABETH ROLDAN, SHARIF N 782.3 Edema 12/30/2013 SHANIQUE VEGA MD 782.3 Edema 12/30/2013 ELIZABETH ROLDAN, SHARIF N 782.3 Edema 12/30/2013 ELIZABETH ROLDAN, SHARIF N 782.3 Edema 12/30/2013 SHANIQUE VEGA MD 782.3 Edema 05/24/2014 DIANNA MACHADO MD Ot 278.00 05/24/2014 DIANNA MACHADO MD Ot 715.95 05/24/2014 DIANNA MACHADO MD, Ot 721.3 05/24/2014 DIANNA MACHADO MD, Ot 722.52 05/24/2014 DIANNA MACHADO MD, Ot 729.1 05/24/2014 DIANNA MACHADO MD Ot V58.69 05/24/2014 DIANNA MACHADO MD, Ot V85.33 06/07/2014 ANA DO, RUFINA K Ot 840.9 06/07/2014 ANA DO, RUFINA K Ot 923.11 06/07/2014 ANA DO, RUFINA K Ot E000.8 06/07/2014 ANA DO, RUFINA K Ot E002.0 06/07/2014 ANA DO, RUFINA K Ot E849.0 06/07/2014 ANA DO, RUFINA K Ot E885.9 06/28/2014 DIANNA MACHADO MD Ot 278.00 06/28/2014 DIANNA MACHADO MD Ot 715.95 06/28/2014 DIANNA MACHADO MD Ot 721.3 06/28/2014 DIANNA MACHADO MD, Ot 722.52 06/28/2014 DIANNA MACHADO MD, Ot 729.1 06/28/2014 DIANNA MACHADO MD Ot V58.69 06/28/2014 DIANNA MACHADO MD Ot V85.32 09/15/2014 SHARIF JOHNSON MD 414.00 CORONARY ATHEROSCLEROSIS OF UNSPECIFIED TYPE OF VESSEL [place] OR GRAFT 09/15/2014 SHARIF JOHNSON MD 782.2 LOCALIZED SUPERFICIAL SWELLING MASS OR LUMP 09/15/2014 MASSIEL VEGA M 414.00 CORONARY ATHEROSCLEROSIS OF UNSPECIFIED TYPE OF VESSEL [place] OR GRAFT 09/15/2014 JANINA BOOKKEEPER RECEPTIONIST, MASSIEL M 782.2 LOCALIZED SUPERFICIAL SWELLING MASS OR LUMP 09/15/2014 HAZEL DO, MIKE K 414.00 CORONARY ATHEROSCLEROSIS OF UNSPECIFIED TYPE OF VESSEL [place]NE OR GRAFT 09/15/2014 HAZEL DO, MIKE K 782.2 LOCALIZED SUPERFICIAL SWELLING MASS OR LUMP 09/15/2014 SHARIF JOHNSON MD 414.00 CORONARY ATHEROSCLEROSIS OF UNSPECIFIED TYPE OF VESSEL [place]NE OR GRAFT 09/15/2014 SHARIF JOHNSON MD 782.2 LOCALIZED SUPERFICIAL SWELLING MASS OR LUMP 09/15/2014 SHANIQUE VEGA MD 414.00 CORONARY ATHEROSCLEROSIS OF UNSPECIFIED TYPE OF VESSEL [place]NE OR GRAFT 09/15/2014 SHANIQUE VEGA MD 782.2 LOCALIZED SUPERFICIAL SWELLING MASS OR LUMP 09/15/2014 SHARIF JOHNSON MD 414.00 CORONARY ATHEROSCLEROSIS OF UNSPECIFIED TYPE OF VESSEL [place]NE OR GRAFT 09/15/2014 SHARIF JOHNSON MD 782.2 LOCALIZED SUPERFICIAL SWELLING MASS OR LUMP 09/15/2014 SHARIF JOHNSON MD 414.00 CORONARY ATHEROSCLEROSIS OF UNSPECIFIED TYPE OF VESSEL [place]OL[place]NE OR GRAFT 09/15/2014 SHARIF JOHNSON MD 782.2 LOCALIZED SUPERFICIAL SWELLING MASS OR LUMP 09/15/2014 SHANIQUE VEGA MD 414.00 CORONARY ATHEROSCLEROSIS OF UNSPECIFIED TYPE OF VESSEL [place]OLUMNE OR GRAFT 09/15/2014 SHANIQUE VEGA MD 782.2 LOCALIZED SUPERFICIAL SWELLING MASS OR LUMP 09/30/2014 DIANNA MACHADO MD Ot 278.00 09/30/2014 DIANNA MACHADO MD Ot 715.95 09/30/2014 DIANNA MACHADO MD Ot 721.3 09/30/2014 DIANNA MACHADO MD Ot 729.1 09/30/2014 DIANNA MACHADO MD Ot V58.69 09/30/2014 DIANNA MACHADO MD Ot V85.33 11/02/2014 HAZEL DO, MIKE K Ot 276.51 11/02/2014 HAZEL DO, MIKE K Ot 300.01 11/02/2014 HAZEL DO, MIKE K Ot 311 11/02/2014 HAZEL DO, MIKE K Ot 414.01 11/02/2014 HAZEL DO, MIKE K Ot 491.20 11/02/2014 HAZEL DO, MIKE K Ot 599.0 11/02/2014 HAZEL DO, MIKE K Ot 715.35 11/02/2014 HAZEL DO, MIKE K Ot 780.97 11/02/2014 HAZEL DO, MIKE K Ot 781.2 11/02/2014 HAZEL DO, MIKE K Ot 969.4 11/02/2014 HAZEL DO, MIEK K Ot E853.2 11/02/2014 HAZEL DO, MIKE K Ot V15.88 11/02/2014 HAZEL DO, MIKE K Ot V45.82 11/02/2014 HAZEL DO, MIKE K Ot 276.51 11/02/2014 HAZEL DO, MIKE K Ot 300.01 11/02/2014 HAZEL DO, MIKE K Ot 311 11/02/2014 HAZEL DO, MIKE K Ot 414.01 11/02/2014 HAZEL DO, MIKE K Ot 491.20 11/02/2014 HAZEL DO, MIKE K Ot 599.0 11/02/2014 HAZEL DO, MIKE K Ot 715.35 11/02/2014 HAZEL DO, MIKE K Ot 780.97 11/02/2014 HAZEL DO, MIKE K Ot 781.2 11/02/2014 HAZEL DO, MIKE K Ot 969.4 11/02/2014 HAZEL DO, MIKE K Ot E853.2 11/02/2014 HAZEL DO, MIKE K Ot V15.88 11/02/2014 HAZEL DO, MIKE K Ot V45.82 11/05/2014 GARY ROLDAN, SHANIQUE Funk Ot 338.29 11/05/2014 GARY ROLDAN, SHANIQUE Funk Ot 719.41 11/05/2014 GARY ROLDAN, SHANIQUE Funk Ot 780.79 11/05/2014 GARY ROLDAN, SHANIQUE Funk Ot V13.02 11/11/2014 JAJA ROLDAN, EMANUEL A Ot 787.02 11/26/2014 SHARIF JOHNSON MD N 787.02 NAUSEA ALONE 11/26/2014 SHANIQUE VEGA MD 787.02 NAUSEA ALONE 11/26/2014 SHARIF JOHNSON MD N 787.02 NAUSEA ALONE 11/26/2014 SHARIF JOHNSON MD 787.02 NAUSEA ALONE 11/26/2014 SHANIQUE VEGA MD 787.02 NAUSEA ALONE 12/03/2014 DIANNA MACHADO MD Ot 715.95 12/03/2014 DIANNA MACHADO MD Ot 721.3 12/03/2014 DIANNA MACHADO MD Ot 729.1 12/03/2014 DIANNA MACHADO MD Ot V58.69 12/08/2014 SHARIF JOHNSON MD N 401.9 HYPERTENSION, UNSPECIFIED ESSENTIAL 12/08/2014 SHARIF JOHNSON MD N 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 12/08/2014 SHARIF JOHNSON MD 443.9 PERIPHERAL VASCULAR DISEASE UNSPECIFIED 12/08/2014 SHARIF JOHNSON MD N 794.31 ABNORMAL EKG 12/08/2014 SHARIF JOHNSON MD N 401.9 HYPERTENSION, UNSPECIFIED ESSENTIAL 12/08/2014 SHARIF JOHNSON MD N 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 12/08/2014 SHARIF JOHNSON MD N 443.9 PERIPHERAL VASCULAR DISEASE UNSPECIFIED 12/08/2014 SHARIF JOHNSON MD N 794.31 ABNORMAL EKG 12/08/2014 SHANIQUE VEGA MD 401.9 HYPERTENSION, UNSPECIFIED ESSENTIAL 12/08/2014 SHANIQUE VEGA MD 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 12/08/2014 SHANIQUE VEGA MD 443.9 PERIPHERAL VASCULAR DISEASE UNSPECIFIED 12/08/2014 SHANIQUE VEGA MD 794.31 ABNORMAL EKG 12/28/2014 BISHNU ROLDAN FACC, ALI FACP CCDS Ot 414.01 12/28/2014 BISHNU ROLDAN FACC, ALI FACP CCDS Ot 414.4 12/28/2014 BISHNU ROLDAN FACC, ALI FACP CCDS Ot 440.0 12/28/2014 BISNHU ROLDAN FACC, ALI FACP CCDS Ot 440.1 12/28/2014 BISHNU ROLDAN FACAndrea, ALI FACP CCDS Ot 440.20 12/28/2014 BISHNU ROLDAN FAC, [facility] FACP CCDS Ot 440.4 12/28/2014 BISHNU ROLDAN FAC, ALI FACP CCDS Ot 441.4 12/28/2014 BISHNU ROLDAN FAC, [facility] FACP CCDS Ot 786.09 12/28/2014 BISHNU ROLDAN FAC, [facility] CCDS Ot V58.69 02/07/2015 SASHA ROLDAN, MYRNA E Ot 272.4 02/07/2015 SASHA ROLDAN, MYRNA E Ot 285.9 02/07/2015 SASHA ROLDAN, MYRNA E Ot 300.00 02/07/2015 SASHA ROLDAN, MYRNA E Ot 401.9 02/07/2015 SASHA ROLDAN, MYRNA E Ot 414.01 02/07/2015 SASHA ROLDAN, MYRNA E Ot 427.31 02/07/2015 SASHA ROLDAN, MYRNA E Ot 496 02/07/2015 SASHA ROLDAN, MYRNA E Ot 530.81 02/07/2015 SASHA ROLDAN, MYRNA E Ot 715.31 02/07/2015 SASHA ROLDAN, MYRNA E Ot 715.35 02/07/2015 SASHA ROLDAN, MYRNA E Ot 721.90 02/07/2015 SASHA ROLDAN, MYRNA E Ot 733.00 02/07/2015 SASHA ROLDAN, MYRNA E Ot 786.09 02/07/2015 SASHA ROLDAN, MYRNA E Ot 788.43 02/07/2015 SASHA ROLDAN, MYRNA E Ot V15.82 02/07/2015 SASHA ROLDAN, MYRNA E Ot V45.81 02/07/2015 SASHA ROLDAN, MYRNA E Ot V46.2 02/07/2015 SASHA ROLDAN, MYRNA E Ot V57.89 02/08/2015 SASHA ROLDAN, MYRNA E Ot 272.4 02/08/2015 SASHA ROLDAN, MYRNA E Ot 285.9 02/08/2015 SASHA ROLDAN, MYRNA E Ot 300.00 02/08/2015 SASHA ROLDAN, MYRNA E Ot 401.9 02/08/2015 SASHA ROLDAN, MYRNA E Ot 414.01 02/08/2015 SASHA ROLDAN, MYRNA E Ot 427.31 02/08/2015 SASHA ROLDAN, MYRNA E Ot 496 02/08/2015 SASHA ROLDAN, MYRNA E Ot 530.81 02/08/2015 SASHA ROLDAN, MYRNA E Ot 715.31 02/08/2015 SASHA ROLDAN, MYRNA E Ot 715.35 02/08/2015 SASHA ROLDAN, MYRNA E Ot 721.90 02/08/2015 SASHA ROLDAN, MYRNA E Ot 733.00 02/08/2015 SASHA ROLDAN, MYRNA E Ot 786.09 02/08/2015 SASHA ROLDAN, MYRNA E Ot 788.43 02/08/2015 SASHA ROLDAN, MYRNA E Ot V15.82 02/08/2015 SASHA ROLDAN, MYRNA E Ot V45.81 02/08/2015 SASHA ROLDAN, MYRNA E Ot V46.2 02/08/2015 SASHA ROLDAN, MYRNA E Ot V57.89 02/09/2015 SASHA ROLDAN, MYRNA E Ot 272.4 02/09/2015 SASHA ROLDAN, MYRNA E Ot 285.9 02/09/2015 SASHA ROLDAN, MYRNA E Ot 300.00 02/09/2015 SASHA ROLDAN, MYRNA E Ot 401.9 02/09/2015 SASHA ROLDAN, MYRNA E Ot 414.01 02/09/2015 SASHA ROLDAN, MYRNA E Ot 427.31 02/09/2015 SASHA ROLDAN, MYRNA E Ot 496 02/09/2015 SASHA ROLDAN, MYRNA E Ot 530.81 02/09/2015 SASHA ROLDAN, MYRNA E Ot 715.31 02/09/2015 SASHA ROLDAN, MYRNA E Ot 715.35 02/09/2015 SASHA ROLDAN, MYRNA E Ot 721.90 02/09/2015 SASHA ROLDAN, MYRNA E Ot 733.00 02/09/2015 SASHA ROLDAN, MYRNA E Ot 786.09 02/09/2015 SASHA ROLDAN, MYRNA E Ot 788.43 02/09/2015 SASHA ROLDAN, MYRNA E Ot V15.82 02/09/2015 SASHA ROLDAN, MYRNA E Ot V45.81 02/09/2015 SASHA ROLDAN, MYRNA E Ot V46.2 02/09/2015 SASHA ROLDAN, MYRNA E Ot V57.89 02/10/2015 SASHA ROLDAN, MYRNA E Ot 272.4 02/10/2015 SASHA ROLDAN, MYRNA E Ot 285.9 02/10/2015 SASHA ROLDAN, MYRNA E Ot 300.00 02/10/2015 SASHA ROLDAN, MYRNA E Ot 401.9 02/10/2015 SASHA ROLDAN, MYRNA E Ot 414.01 02/10/2015 SASHA ROLDAN, MYRNA E Ot 427.31 02/10/2015 SASHA ROLDAN, MYRNA E Ot 496 02/10/2015 SASHA ROLDAN, MYRNA E Ot 530.81 02/10/2015 SASHA ROLDAN, MYRNA E Ot 715.31 02/10/2015 SASHA ROLDAN, MYRNA E Ot 715.35 02/10/2015 SASHA ROLDAN, MYRNA E Ot 721.90 02/10/2015 SASHA ROLDAN, MYRNA E Ot 733.00 02/10/2015 SASHA ROLDAN, MYRNA E Ot 786.09 02/10/2015 SASHA ROLDAN, MYRNA E Ot 788.43 02/10/2015 SASHA ROLDAN, MYRNA E Ot V15.82 02/10/2015 SASHA ROLDAN, MYRNA E Ot V45.81 02/10/2015 SASHA ROLDAN, MYRNA E Ot V46.2 02/10/2015 SASHA ROLDAN, MYRNA E Ot V57.89 02/11/2015 SASHA ROLDAN, MYRNA E Ot 272.4 02/11/2015 SASHA ROLDAN, MYRNA E Ot 285.9 02/11/2015 SASHA ROLDAN, MYRNA E Ot 300.00 02/11/2015 SASHA ROLDAN, MYRNA E Ot 401.9 02/11/2015 SASHA ROLDAN, MYRNA E Ot 414.01 02/11/2015 SASHA ROLDAN, MYRNA E Ot 427.31 02/11/2015 SASHA ROLDAN, MYRNA E Ot 496 02/11/2015 SASHA ROLDAN, MYRNA E Ot 530.81 02/11/2015 SASHA ROLDAN, MYRNA E Ot 715.31 02/11/2015 SASHA ROLDAN, MYRNA E Ot 715.35 02/11/2015 SASHA ROLDAN, MYRNA E Ot 721.90 02/11/2015 SASHA ROLDAN, MYRNA E Ot 733.00 02/11/2015 SASHA ROLDAN, MYRNA E Ot 786.09 02/11/2015 SASHA ROLDAN, MYRNA E Ot 788.43 02/11/2015 SASHA ROLDAN, MYRNA E Ot V15.82 02/11/2015 SASHA ROLDAN, MYRNA E Ot V45.81 02/11/2015 SASHA ROLDAN, MYRNA E Ot V46.2 02/11/2015 SASHA ROLDAN, MYRNA E Ot V57.89 02/11/2015 SASHA ROLDAN, MYRNA E Ot 272.4 02/11/2015 SASHA ROLDAN, MYRNA E Ot 285.9 02/11/2015 SASHA ROLDAN, MYRNA E Ot 300.00 02/11/2015 SASHA ROLDAN, MYRNA E Ot 401.9 02/11/2015 SASHA ROLDAN, MYRNA E Ot 414.01 02/11/2015 SASHA ROLDAN, MYRNA E Ot 427.31 02/11/2015 SASHA ROLDAN, MYRNA E Ot 496 02/11/2015 SASHA ROLDAN, MYRNA E Ot 530.81 02/11/2015 SASHA ROLDAN, MYRNA E Ot 715.31 02/11/2015 SASHA ROLDAN, MYRNA E Ot 715.35 02/11/2015 SASHA ROLDAN, MYRNA E Ot 721.90 02/11/2015 SASHA ROLDAN, MYRNA E Ot 733.00 02/11/2015 SASHA ROLDAN, MYRNA E Ot 786.09 02/11/2015 SASHA ROLDAN, MYRNA E Ot 788.43 02/11/2015 SASHA ROLDAN, MYRNA E Ot V15.82 02/11/2015 SASHA ROLDAN, MYRNA E Ot V45.81 02/11/2015 SASHA ROLDAN, MYRNA E Ot V46.2 02/11/2015 SASHA ROLDAN, MYRNA E Ot V57.89 02/12/2015 SASHA ROLDAN, MYRNA E Ot 272.4 02/12/2015 SASHA ROLDAN, MYRNA E Ot 285.9 02/12/2015 SASHA ROLDAN, MYRNA E Ot 300.00 02/12/2015 SASHA ROLDAN, MYRNA E Ot 401.9 02/12/2015 SASHA ROLDAN, MYRNA E Ot 414.01 02/12/2015 SASHA ROLDAN, MYRNA E Ot 427.31 02/12/2015 SASHA ROLDAN, MYRNA E Ot 496 02/12/2015 SASHA ROLDAN, MYRNA E Ot 530.81 02/12/2015 SASHA ROLDAN, MYRNA E Ot 715.31 02/12/2015 SASHA ROLDAN, MYRNA E Ot 715.35 02/12/2015 SASHA ROLDAN, MYRNA E Ot 721.90 02/12/2015 SASHA ROLDAN, MYRNA E Ot 733.00 02/12/2015 SASHA ROLDAN, MYRNA E Ot 786.09 02/12/2015 SASHA ROLDAN, MYRNA E Ot 788.43 02/12/2015 SASHA ROLDAN, MYRNA E Ot V15.82 02/12/2015 SASHA ROLDAN, MYRNA E Ot V45.81 02/12/2015 SASHA ROLDAN, MYRNA E Ot V46.2 02/12/2015 SASHA ROLDAN, MYRNA E Ot V57.89 02/13/2015 SASHA ROLDAN, MYRNA E Ot 272.4 02/13/2015 SASHA ROLDAN, MYRNA E Ot 285.9 02/13/2015 SASHA ROLDAN, MYRNA E Ot 300.00 02/13/2015 SASHA ROLDAN, MYRNA E Ot 401.9 02/13/2015 SASHA ROLDAN, MYRNA E Ot 414.01 02/13/2015 SASHA ROLDAN, MYRNA E Ot 427.31 02/13/2015 SASHA ROLDAN, MYRNA E Ot 496 02/13/2015 SASHA ROLDAN, MYRNA E Ot 530.81 02/13/2015 SASHA ROLDAN, MYRNA E Ot 715.31 02/13/2015 SASHA ROLDAN, MYRNA E Ot 715.35 02/13/2015 SASHA ROLDAN, MYRNA E Ot 721.90 02/13/2015 SASHA ROLDAN, MYRNA E Ot 733.00 02/13/2015 SASHA ROLDAN, MYRNA E Ot 786.09 02/13/2015 SASHA ROLDAN, MYRNA E Ot 788.43 02/13/2015 SASHA ROLDAN, MYRNA E Ot V15.82 02/13/2015 SASHA ROLDAN, MYRNA E Ot V45.81 02/13/2015 SASHA ROLDAN, MYRNA E Ot V46.2 02/13/2015 SASHA ROLDAN, MYRNA E Ot V57.89 02/14/2015 SASHA ROLDAN, MYRNA E Ot 272.4 02/14/2015 SASHA ROLDAN, MYRNA E Ot 285.9 02/14/2015 SASHA ROLDAN, MYRNA E Ot 300.00 02/14/2015 SASHA ROLDAN, MYRNA E Ot 401.9 02/14/2015 SASHA ROLDAN, MYRNA E Ot 414.01 02/14/2015 SASHA ROLDAN, MYRNA E Ot 427.31 02/14/2015 SSAHA ROLDAN, MYRNA E Ot 496 02/14/2015 SASHA ROLDAN, MYRNA E Ot 530.81 02/14/2015 SASHA ROLDAN, MYRNA E Ot 715.31 02/14/2015 SASHA ROLDAN, MYRNA E Ot 715.35 02/14/2015 SASHA ROLDAN, MYRNA E Ot 721.90 02/14/2015 SASHA ROLDAN, MYRNA E Ot 733.00 02/14/2015 SASHA ROLDAN, MYRNA E Ot 786.09 02/14/2015 SASHA ROLDAN, MYRNA E Ot 788.43 02/14/2015 SASHA ROLDAN, MYRNA E Ot V15.82 02/14/2015 SASHA ROLDAN, MYRNA E Ot V45.81 02/14/2015 SASHA ROLDAN, MYRNA E Ot V46.2 02/14/2015 SASHA ROLDAN, MYRNA E Ot V57.89 02/17/2015 SASHA ROLDAN, MYRNA E Ot 272.4 02/17/2015 SASHA ROLDAN, MYRNA E Ot 285.9 02/17/2015 SASHA ROLDAN, MYRNA E Ot 300.00 02/17/2015 SASHA ROLDAN, MYRNA E Ot 401.9 02/17/2015 SASHA ROLDAN, MYRNA E Ot 414.01 02/17/2015 SASHA ROLDAN, MYRNA E Ot 427.31 02/17/2015 SASHA ROLDAN, MYRNA E Ot 496 02/17/2015 SASHA ROLDAN, MYRNA E Ot 530.81 02/17/2015 SASHA ROLDAN, MYRNA E Ot 715.31 02/17/2015 SASHA ROLDAN, MYRNA E Ot 715.35 02/17/2015 SASHA ROLDAN, MYRNA E Ot 721.90 02/17/2015 SASHA ROLDAN, MYRNA E Ot 733.00 02/17/2015 SASHA ROLDAN, MYRNA E Ot 786.09 02/17/2015 SASHA ROLDAN, MYRNA E Ot 788.43 02/17/2015 SASHA ROLDAN, MYRNA E Ot V15.82 02/17/2015 SASHA ROLDAN, MYRNA E Ot V45.81 02/17/2015 SASHA ROLDAN, MYRNA E Ot V46.2 02/17/2015 SASHA ROLDAN, MYRNA E Ot V57.89 02/17/2015 Ot 388.30 02/17/2015 Ot 780.4 02/17/2015 Ot 796.2 02/17/2015 Ot 799.51 02/17/2015 CAROLINE MENDOZA MD Ot 338.29 02/17/2015 REJI ROLDAN, CAROLINE [place] Ot 722.6 02/17/2015 CAROLINE MENDOZA MD Ot 724.2 02/17/2015 CAROILNE MENDOZA MD Ot 724.4 02/17/2015 MAX DHILLON Ot 401.1 02/17/2015 MAX DHILLON Ot 424.1 02/17/2015 MAX DHILLON COMM[employer]CIAL PROPERTY MANAGER Ot 785.2 02/17/2015 MAX DHILLON COMMERCIAL PROPERTY MANAGER Ot 786.05 02/17/2015 MARY VILLALOBOSANDRE Ot 715.91 02/17/2015 MARY VILLALOBOSANDRE Ot 727.61 02/17/2015 DIANNA MACHADO MD Ot 278.00 02/17/2015 DIANNA MACHADO MD Ot 721.3 02/17/2015 DIANNA MACHADO MD Ot 724.6 02/17/2015 DIANNA MACHADO MD Ot 729.1 02/17/2015 DIANNA MACHADO MD Ot V58.69 02/17/2015 DIANNA MACHADO MD Ot V85.35 02/17/2015 DIANNA MACHADO MD Ot 278.00 02/17/2015 DIANNA MACHADO MD Ot 715.95 02/17/2015 DIANNA MACHADO MD Ot 721.3 02/17/2015 DIANNA MACHADO MD Ot 729.1 02/17/2015 DIANNA MACHADO MD Ot V58.69 02/17/2015 DIANNA MACHADO MD Ot V85.33 02/17/2015 GARY ROLDAN, SHANIQUE F Ot 791.9 02/17/2015 SASHA ROLDAN, MYRNA E Ot 272.4 02/17/2015 SASHA ROLDAN, MYRNA E Ot 285.9 02/17/2015 SASHA ROLDAN, MYRNA E Ot 300.00 02/17/2015 SASHA ROLDAN, MYRNA E Ot 401.9 02/17/2015 SASHA ROLDAN, MYRNA E Ot 414.01 02/17/2015 SASHA ROLDAN, MYRNA E Ot 427.31 02/17/2015 SASHA ROLDAN, MYRNA E Ot 496 02/17/2015 SASHA ROLDAN, MYRNA E Ot 530.81 02/17/2015 SASHA ROLDAN, MYRNA E Ot 715.31 02/17/2015 ASSHA ROLDAN, MYRNA E Ot 715.35 02/17/2015 SASHA ROLDAN, MYRNA E Ot 721.90 02/17/2015 SASHA ROLDAN, MYRNA E Ot 733.00 02/17/2015 SASHA ROLDAN, MYRNA E Ot 786.09 02/17/2015 SASHA ROLDAN, MYRNA E Ot 788.43 02/17/2015 SASHA ROLDAN, MYRNA E Ot V15.82 02/17/2015 SASHA ROLDAN, MYRNA E Ot V45.81 02/17/2015 SASHA ROLDAN, MYRNA E Ot V46.2 02/17/2015 SASHA ROLDAN, MYRNA E Ot V57.89 02/17/2015 SASHA ROLDAN, MYRNA E Ot 272.4 02/17/2015 SASHA ROLDAN, MYRNA E Ot 285.9 02/17/2015 SASHA ROLDAN, MYRNA E Ot 300.00 02/17/2015 SASHA ROLDAN, MYRNA E Ot 401.9 02/17/2015 SASHA ROLDAN, MYRNA E Ot 414.01 02/17/2015 SASHA ROLDAN, MYRNA E Ot 427.31 02/17/2015 SASHA ROLDAN, MYRNA E Ot 496 02/17/2015 SASHA ROLDAN, MYRNA E Ot 530.81 02/17/2015 SASHA ROLDAN, MYRNA E Ot 715.31 02/17/2015 SASHA ROLDAN, MYRNA E Ot 715.35 02/17/2015 SASHA ROLDAN, MYRNA E Ot 721.90 02/17/2015 SASHA ROLDAN, MYRNA E Ot 733.00 02/17/2015 SASHA ROLDAN, MYRNA E Ot 786.09 02/17/2015 SASHA ROLDAN, MYRNA E Ot 788.43 02/17/2015 SASHA ROLDAN, MYRNA E Ot V15.82 02/17/2015 SASHA ROLDAN, MYRNA E Ot V45.81 02/17/2015 SASHA ROLDAN, MYRNA E Ot V46.2 02/17/2015 SASHA ROLDAN, MYRNA E Ot V57.89 02/17/2015 SASHA ROLDAN, MYRNA E Ot 272.4 02/17/2015 SASHA ROLDAN, MYRNA E Ot 285.9 02/17/2015 SASHA ROLDAN, MYRNA E Ot 300.00 02/17/2015 SASHA ROLDAN, MYRNA E Ot 401.9 02/17/2015 SASHA ROLDAN, MYRNA E Ot 414.01 02/17/2015 SASHA ROLDAN, MYRNA E Ot 427.31 02/17/2015 SASHA ROLDAN, MYRNA E Ot 496 02/17/2015 SASHA ROLDAN, MYRNA E Ot 530.81 02/17/2015 SASHA ROLDAN, MYRNA E Ot 715.31 02/17/2015 SASHA ROLDAN, MYRNA E Ot 715.35 02/17/2015 SASHA ROLDAN, MYRNA E Ot 721.90 02/17/2015 SASHA ROLDAN, MYRNA E Ot 733.00 02/17/2015 SASHA ROLDAN, MYRNA E Ot 786.09 02/17/2015 SASHA ROLDAN, MYRNA E Ot 788.43 02/17/2015 SASHA ROLDAN, MYRNA E Ot V15.82 02/17/2015 SASHA ROLDAN, MYRNA E Ot V45.81 02/17/2015 SASHA ROLDAN, MYRNA E Ot V46.2 02/17/2015 SASHA ROLDAN, MYRNA E Ot V57.89 02/17/2015 SASHA ROLDAN, MYRNA E Ot 272.4 02/17/2015 SASHA ROLDAN, MYRNA E Ot 285.9 02/17/2015 SASHA ROLDAN, MYRNA E Ot 300.00 02/17/2015 SASHA ROLDAN, MYRNA E Ot 401.9 02/17/2015 SASHA ROLDAN, MYRNA E Ot 414.01 02/17/2015 SASHA ROLDAN, MYRNA E Ot 427.31 02/17/2015 SASHA ROLDAN, MYRNA E Ot 496 02/17/2015 SASHA ROLDAN, MYRNA E Ot 530.81 02/17/2015 SASHA ROLDAN, MYRNA E Ot 715.31 02/17/2015 SASHA ROLDAN, MYRNA E Ot 715.35 02/17/2015 SASHA ROLDAN, MYRNA E Ot 721.90 02/17/2015 SASHA ROLDAN, MYRNA E Ot 733.00 02/17/2015 SASHA ROLDAN, MYRNA E Ot 786.09 02/17/2015 SASHA ROLDAN, MYRNA E Ot 788.43 02/17/2015 SASHA ROLDAN, MYRNA E Ot V15.82 02/17/2015 SASHA ROLDAN, MYRNA E Ot V45.81 02/17/2015 SASHA ROLDAN, MYRNA E Ot V46.2 02/17/2015 SASHA ROLDAN, MYRNA E Ot V57.89 02/18/2015 SASHA ROLDAN, MYRNA E Ot 272.4 02/18/2015 SASHA ROLDAN, MYRNA E Ot 285.9 02/18/2015 SASHA ROLDAN, MYRNA E Ot 300.00 02/18/2015 SASHA ROLDAN, MYRNA E Ot 401.9 02/18/2015 SASHA ROLDAN, MYRNA E Ot 414.01 02/18/2015 SASHA ROLDAN, MYRNA E Ot 427.31 02/18/2015 SASHA ROLDAN, MYRNA E Ot 496 02/18/2015 SASHA ROLDAN, MYRNA E Ot 530.81 02/18/2015 SASHA ROLDAN, MYRNA E Ot 715.31 02/18/2015 SASHA ROLDAN, MYRNA E Ot 715.35 02/18/2015 SASHA ROLDAN, MYRNA E Ot 721.90 02/18/2015 SASHA ROLDAN, MYRNA E Ot 733.00 02/18/2015 SASHA ROLDAN, MYRNA E Ot 786.09 02/18/2015 SASHA ROLDAN, MYRNA E Ot 788.43 02/18/2015 SASHA ROLDAN, MYRNA E Ot V15.82 02/18/2015 SASHA ROLDAN, MYRNA E Ot V45.81 02/18/2015 SASHA ROLDAN, MYRNA E Ot V46.2 02/18/2015 SASHA ROLDAN, MYRNA E Ot V57.89 02/19/2015 SASHA ROLDAN, MYRNA E Ot 272.4 02/19/2015 SASHA ROLDAN, MYRNA E Ot 285.9 02/19/2015 SASHA ROLDAN, MYRNA E Ot 300.00 02/19/2015 SASHA ROLDAN, MYRNA E Ot 401.9 02/19/2015 SASHA ROLDAN, MYRNA E Ot 414.01 02/19/2015 SASHA ROLDAN, MYRNA E Ot 427.31 02/19/2015 SASHA ROLDAN, MYRNA E Ot 496 02/19/2015 SASHA ROLDAN, MYRNA E Ot 530.81 02/19/2015 SASHA ROLDAN, MYRNA E Ot 715.31 02/19/2015 SASHA ROLDAN, MYRNA E Ot 715.35 02/19/2015 SASHA ROLDAN, MYRNA E Ot 721.90 02/19/2015 SASHA ROLDAN, MYRNA E Ot 733.00 02/19/2015 SASHA ROLDAN, MYRNA E Ot 786.09 02/19/2015 SASHA ROLDAN, MYRNA E Ot 788.43 02/19/2015 SASHA ROLDAN, MYRNA E Ot V15.82 02/19/2015 SASHA ROLDAN, MYRNA E Ot V45.81 02/19/2015 SASHA ROLDAN, MYRNA E Ot V46.2 02/19/2015 SASHA ROLDAN, MYRNA E Ot V57.89 02/20/2015 SASHA ROLDAN, MYRNA E Ot 272.4 02/20/2015 SASHA ROLDAN, MYRNA E Ot 285.9 02/20/2015 SASHA ROLDAN, MYRNA E Ot 300.00 02/20/2015 SASHA ROLDAN, MYRNA E Ot 401.9 02/20/2015 SASHA ROLDAN, MYRNA E Ot 414.01 02/20/2015 SASHA ROLDAN, MYRNA E Ot 427.31 02/20/2015 SASHA ROLDAN, MYRNA E Ot 496 02/20/2015 SASHA ROLDAN, MYRNA E Ot 530.81 02/20/2015 SASHA ROLDAN, MYRNA E Ot 715.31 02/20/2015 SASHA ROLDAN, MYRNA E Ot 715.35 02/20/2015 SASHA ROLDAN, MYRNA E Ot 721.90 02/20/2015 SASHA ROLDAN, MYRNA E Ot 733.00 02/20/2015 SASHA ROLDAN, MYRNA E Ot 786.09 02/20/2015 SASHA ROLDAN, MYRNA E Ot 788.43 02/20/2015 SASHA ROLDAN, MYRNA E Ot V15.82 02/20/2015 SASHA ROLDAN, MYRNA E Ot V45.81 02/20/2015 SASHA ROLDAN, MYRNA E Ot V46.2 02/20/2015 SASHA ROLDAN, MYRNA E Ot V57.89 02/21/2015 SASHA ROLDAN, MYRNA E Ot 272.4 02/21/2015 SASHA ROLDAN, MYRNA E Ot 285.9 02/21/2015 SASHA ROLDAN, MYRNA E Ot 300.00 02/21/2015 SASHA ROLDAN, MYRNA E Ot 401.9 02/21/2015 SASHA ROLDAN, MYRNA E Ot 414.01 02/21/2015 SASHA ROLDAN, MYRNA E Ot 427.31 02/21/2015 SASHA ROLDAN, MYRNA E Ot 496 02/21/2015 SASHA ROLDAN, MYRNA E Ot 530.81 02/21/2015 SASHA ROLDAN, MYRNA E Ot 715.31 02/21/2015 SASHA ROLDAN, MYRNA E Ot 715.35 02/21/2015 SASHA ROLDAN, MYRNA E Ot 721.90 02/21/2015 SASHA ROLDAN, MYRNA E Ot 733.00 02/21/2015 SASHA ROLDAN, MYRNA E Ot 786.09 02/21/2015 SASHA ROLDAN, MYRNA E Ot 788.43 02/21/2015 SASHA ROLDAN, MYRNA E Ot V15.82 02/21/2015 SASHA ROLDAN, MYRNA E Ot V45.81 02/21/2015 SASHA ROLDAN, MYRNA E Ot V46.2 02/21/2015 SASHA ROLDAN, MYRNA E Ot V57.89 02/21/2015 SASHA ROLDAN, MYRNA E Ot 272.4 02/21/2015 SASHA ROLDAN, MYRNA E Ot 285.9 02/21/2015 SASHA ROLDAN, MYRNA E Ot 300.00 02/21/2015 SASHA ROLDAN, MYRNA E Ot 401.9 02/21/2015 SASHA ROLDAN, MYRNA E Ot 414.01 02/21/2015 SASHA ROLDAN, MYRNA E Ot 427.31 02/21/2015 SASHA ROLDAN, MYRNA E Ot 496 02/21/2015 SASHA ROLDAN, MYRNA E Ot 530.81 02/21/2015 SASHA ROLDAN, MYRNA E Ot 715.31 02/21/2015 SASHA ROLDAN, MYRNA E Ot 715.35 02/21/2015 SASHA ROLDAN, MYRNA E Ot 721.90 02/21/2015 SASHA ROLDAN, MYRNA E Ot 733.00 02/21/2015 SASHA ROLDAN, MYRNA E Ot 786.09 02/21/2015 SASHA ROLDAN, MYRNA E Ot 788.43 02/21/2015 SASHA ROLDAN, MYRNA E Ot V15.82 02/21/2015 SASHA ROLDAN, MYRNA E Ot V45.81 02/21/2015 SASHA ROLDAN, MYRNA E Ot V46.2 02/21/2015 SASHA ROLDAN, MYRNA E Ot V57.89 02/21/2015 SASHA ROLDAN, MYRNA E Ot 272.4 02/21/2015 SASHA ROLDAN, MYRNA E Ot 285.9 02/21/2015 SASHA ROLDAN, MYRNA E Ot 300.00 02/21/2015 SASHA ROLDAN, MYRNA E Ot 401.9 02/21/2015 SASHA ROLDAN, MYRNA E Ot 414.01 02/21/2015 SASHA ROLDAN, MYRNA E Ot 427.31 02/21/2015 SASHA ROLDAN, MYRNA E Ot 496 02/21/2015 SASHA ROLDAN, MYRNA E Ot 530.81 02/21/2015 SASHA ROLDAN, MYRNA E Ot 715.31 02/21/2015 SASHA ROLDAN, MYRNA E Ot 715.35 02/21/2015 SASHA ROLDAN, MYRNA E Ot 721.90 02/21/2015 SASHA ROLDAN, MYRNA E Ot 733.00 02/21/2015 SASHA ROLDAN, MYRNA E Ot 786.09 02/21/2015 SASHA ROLDAN, MYRNA E Ot 788.43 02/21/2015 SASHA ROLDAN, MYRNA E Ot V15.82 02/21/2015 SASHA ROLDAN, MYRNA E Ot V45.81 02/21/2015 SASHA ROLDAN, MYRNA E Ot V46.2 02/21/2015 SASHA ROLDAN, MYRNA E Ot V57.89 02/22/2015 SASHA ROLDAN, MYRNA E Ot 272.4 02/22/2015 SASHA ROLDAN, MYRNA E Ot 285.9 02/22/2015 SASHA ROLDAN, MYRNA E Ot 300.00 02/22/2015 SASHA ROLDAN, MYRNA E Ot 401.9 02/22/2015 SASHA ROLDAN, MYRNA E Ot 414.01 02/22/2015 SASHA ROLDAN, MYRNA E Ot 427.31 02/22/2015 SASHA ROLDAN, MYRNA E Ot 496 02/22/2015 SASHA ROLDAN, MYRNA E Ot 530.81 02/22/2015 SASHA ROLDAN, MYRNA E Ot 715.31 02/22/2015 SASHA ROLDAN, MYRNA E Ot 715.35 02/22/2015 SASHA ROLDAN, MYRNA E Ot 721.90 02/22/2015 SASHA ROLDAN, MYRNA E Ot 733.00 02/22/2015 SASHA ROLDAN, MYRNA E Ot 786.09 02/22/2015 SASHA ROLDAN, MYRNA E Ot 788.43 02/22/2015 SASHA ROLDAN, MYRNA E Ot V15.82 02/22/2015 SASHA ROLDAN, MYRNA E Ot V45.81 02/22/2015 SASHA ROLDAN, MYRNA E Ot V46.2 02/22/2015 SASHA ROLDAN, MYRNA E Ot V57.89 02/23/2015 SASHA ROLDAN, MYRNA E Ot 272.4 02/23/2015 SASHA ROLDAN, MYRNA E Ot 285.9 02/23/2015 SASHA ROLDAN, MYRNA E Ot 300.00 02/23/2015 SASHA ROLDAN, MYRNA E Ot 401.9 02/23/2015 SASHA ROLDAN, MYRNA E Ot 414.01 02/23/2015 SASHA ROLDAN, MYRNA E Ot 427.31 02/23/2015 SASHA ROLDAN, MYRNA E Ot 496 02/23/2015 SASHA ROLDAN, MYRNA E Ot 530.81 02/23/2015 SASHA ROLDAN, MYRNA E Ot 715.31 02/23/2015 SASHA ROLDAN, MYRNA E Ot 715.35 02/23/2015 SASHA ROLDAN, MYRNA E Ot 721.90 02/23/2015 SASHA ROLDAN, MYRNA E Ot 733.00 02/23/2015 SASHA ROLDAN, MYRNA E Ot 786.09 02/23/2015 SASHA ROLDAN, MYRNA E Ot 788.43 02/23/2015 SASHA ROLDAN, MYRNA E Ot V15.82 02/23/2015 SASHA ROLDAN, MYRNA E Ot V45.81 02/23/2015 SASHA ROLDAN, YMRNA E Ot V46.2 02/23/2015 SASHA ROLDAN, MYRNA E Ot V57.89 02/24/2015 SASHA ROLDAN, MYRNA E Ot 272.4 02/24/2015 SASHA ROLDAN, MYRNA E Ot 285.9 02/24/2015 SASHA ROLDAN, MYRNA E Ot 300.00 02/24/2015 SASHA ROLDAN, MYRNA E Ot 401.9 02/24/2015 SASHA ROLDAN, MYRNA E Ot 414.01 02/24/2015 SASHA ROLDAN, MYRNA E Ot 427.31 02/24/2015 SASHA ROLDAN, MYRNA E Ot 496 02/24/2015 SASHA ROLDAN, MYRNA E Ot 530.81 02/24/2015 SASHA ROLDAN, MYRNA E Ot 715.31 02/24/2015 SASHA ROLDAN, MYRNA E Ot 715.35 02/24/2015 SASHA ROLDAN, MYRNA E Ot 721.90 02/24/2015 SASHA ROLDAN, MYRNA E Ot 733.00 02/24/2015 SASHA ROLDAN, MYRNA E Ot 786.09 02/24/2015 SASHA ROLDAN, MYRNA E Ot 788.43 02/24/2015 SASHA ROLDAN, MYRNA E Ot V15.82 02/24/2015 SASHA ROLDAN, MYRNA E Ot V45.81 02/24/2015 SASHA ROLDAN, MYRNA E Ot V46.2 02/24/2015 SASHA ROLDAN, MYRNA E Ot V57.89 02/24/2015 SASHA ROLDAN, MYRNA E Ot 238.71 02/24/2015 SASHA ROLDAN, MYRNA E Ot 272.4 02/24/2015 SASHA ROLDAN, MYRNA E Ot 276.1 02/24/2015 SASHA ROLDAN, MYRNA E Ot 285.9 02/24/2015 SASHA ROLDAN, MYRNA E Ot 294.9 02/24/2015 SASHA ROLDAN, MYRNA E Ot 300.00 02/24/2015 SASHA ROLDAN, MYRNA E Ot 401.9 02/24/2015 SASHA ROLDAN, MYRNA E Ot 414.01 02/24/2015 SASHA ROLDAN, MYRNA E Ot 427.31 02/24/2015 SASHA ROLDAN, MYRNA E Ot 433.10 02/24/2015 SASHA ROLDAN, MYRNA E Ot 433.30 02/24/2015 SASHA ROLDAN, MYRNA E Ot 496 02/24/2015 SASHA ROLDAN, MYRNA E Ot 511.9 02/24/2015 SASHA ROLDAN, MYRNA E Ot 530.81 02/24/2015 SASHA ROLDAN, MYRNA E Ot 682.2 02/24/2015 SASHA ROLDAN, MYRNA E Ot 715.31 02/24/2015 SASHA ROLDAN, MYRNA E Ot 715.35 02/24/2015 SASHA ROLDAN, MYRNA E Ot 721.90 02/24/2015 SASHA ROLDAN, MYRNA E Ot 733.00 02/24/2015 SASHA ROLDAN, MYRNA E Ot 786.09 02/24/2015 SASHA ROLDAN, MYRNA E Ot 788.43 02/24/2015 SASHA ROLDAN, MYRNA E Ot 998.59 02/24/2015 SASHA ROLDAN, MYRNA E Ot V15.82 02/24/2015 SASHA ROLDAN, MYRNA E Ot V45.81 02/24/2015 SASHA ROLDAN, MYRNA E Ot V46.2 02/24/2015 SASHA ROLDAN, MYRNA E Ot V57.89 02/25/2015 EUNICE ROLDAN, JUAREZ T Ot 599.0 02/25/2015 EUNICE ROLDAN, JUAREZ T Ot 920 02/25/2015 EUNICE ROLDAN, JUAREZ T Ot E000.8 02/25/2015 EUNICE ROLDAN, JUAREZ T Ot E001.0 02/25/2015 EUNICE ROLDAN, JUAREZ T Ot E849.7 02/25/2015 EUNICE ROLDAN, JUAREZ T Ot E888.9 02/27/2015 Ot 388.30 02/27/2015 Ot 780.4 02/27/2015 Ot 796.2 02/27/2015 Ot 799.51 02/27/2015 REJI ROLDAN, CAROLINE Magaña Ot 338.29 02/27/2015 REJI ROLDAN, CAROLINE Magaña Ot 722.6 02/27/2015 CAROLINE MENDOZA MD Ot 724.2 02/27/2015 CAROLINE MENDOZA MD Ot 724.4 02/27/2015 MAX DHILLON Andre COMMERCIAL PROPERTY MANAGER Ot 401.1 02/27/2015 MAX DHILLON COMMERCIAL PROPERTY MANAGER Ot 424.1 02/27/2015 MAX DHILLON COMMERCIAL PROPERTY MANAGER Ot 785.2 02/27/2015 MAX DHILLON COMMERCIAL PROPERTY MANAGER Ot 786.05 02/27/2015 ANDRE HERNANDEZ DO Ot 715.91 02/27/2015 ANDRE HERNANDEZ DO Ot 727.61 02/27/2015 DIANNA MACHADO MD Ot 278.00 02/27/2015 DIANNA MACHADO MD Ot 721.3 02/27/2015 DIANNA MACHADO MD Ot 724.6 02/27/2015 DIANNA MACHADO MD Ot 729.1 02/27/2015 DIANNA MACHADO MD Ot V58.69 02/27/2015 DIANNA MACHADO MD Ot V85.35 02/27/2015 DIANNA MACHADO MD Ot 278.00 02/27/2015 DIANNA MACHADO MD Ot 715.95 02/27/2015 DIANNA MACHADO MD Ot 721.3 02/27/2015 DIANNA MACHADO MD Ot 729.1 02/27/2015 DIANNA MACHADO MD Ot V58.69 02/27/2015 DIANNA MACHADO MD Ot V85.33 02/27/2015 SHANIQUE VEGA MD Ot 791.9 02/28/2015 SHANIQUE VEGA MD Ot 041.3 KLEBSIELLA PNEUMONIAE 02/28/2015 SHANIQUE VEGA MD Ot 298.9 PSYCHOSIS NOS 02/28/2015 SHANIQUE VEGA MD Ot 599.0 URIN TRACT INFECTION NOS 02/28/2015 SHANIQUE VEGA MD Ot 719.41 JOINT PAIN-SHLDER 02/28/2015 SHANIQUE VEGA MD Ot 786.50 CHEST PAIN NOS 02/28/2015 SHANIQUE VEGA MD Ot V09.80 INF RES TO DRUGS NEC, WO RES TO MULT LARA 02/28/2015 SHANIQUE VEGA MD Ot V15.88 HISTORY OF FALL 02/28/2015 SHANIQUE VEGA MD, Ot V58.69 OTH MED,LT,CURRENT USE 02/28/2015 SHANIQUE VEGA MD Ot 041.3 02/28/2015 GARY ROLDAN, SHANIQUE F Ot 298.9 02/28/2015 GARY ROLDAN, SHANIQUE F Ot 599.0 02/28/2015 GARY ROLDAN, SHANIQUE F Ot 719.41 02/28/2015 GARY ROLDAN, SHANIQUE F Ot 786.50 02/28/2015 GARY ROLDAN, SHANIQUE F Ot V09.80 02/28/2015 GARY ROLDAN, SHANIQUE F Ot V15.88 02/28/2015 GARY ROLDAN, SHANIQUE F Ot V58.69 03/11/2015 ELIZABETH ROLDAN, SHARIF N Ot 250.00 03/11/2015 ELIZABETH ROLDAN, SHARIF N Ot 272.0 03/11/2015 ELIZABETH ROLDAN, SHARIF N Ot 272.4 03/11/2015 ELIZABETH ROLDAN, SHARIF N Ot 275.2 03/11/2015 ELIZABETH ROLDAN, SHARIF N Ot 276.1 03/11/2015 ELIZABETH ROLDAN, SHARIF N Ot 276.8 03/11/2015 ELIZABETH ROLDAN, SHARIF N Ot 285.9 03/11/2015 ELIZABETH ROLDAN, SHARIF N Ot 300.01 03/11/2015 ELIZABETH ROLDAN, SHARIF N Ot 305.1 03/11/2015 ELIZABETH ROLDAN, SHARIF N Ot 311 03/11/2015 ELIZABETH ROLDAN, SHARIF N Ot 401.9 03/11/2015 ELIZABETH ROLDAN, SHARIF N Ot 414.00 03/11/2015 ELIZABETH ROLDAN, SHARIF N Ot 428.0 03/11/2015 ELIZABETH ROLDAN, SHARIF N Ot 428.33 03/11/2015 ELIZABETH ROLDAN, SHARIF N Ot 433.10 03/11/2015 ELIZABETH ROLDAN, SHARIF N Ot 433.30 03/11/2015 ELIZABETH ROLDAN, SHARIF N Ot 440.1 03/11/2015 ELIZABETH ROLDAN, SHARIF N Ot 440.20 03/11/2015 ELIZABETH ROLDAN, SHARIF N Ot 441.4 03/11/2015 ELIZABETH ROLDAN, SHARIF N Ot 442.9 03/11/2015 ELIZABETH ROLDAN, SHARIF N Ot 491.20 03/11/2015 ELIZABETH ROLDAN, SHARIF N Ot 715.90 03/11/2015 ELIZABETH ROLDAN, SHARIF N Ot 722.6 03/11/2015 ELIZABETH ROLDAN, SHRAIF N Ot 780.1 03/11/2015 ELIZABETH ROLDAN, SHARIF N Ot 799.02 03/11/2015 ELIZABETH ROLDAN, SHARIF N Ot 920 03/11/2015 ELIZABETH ROLDAN, SHARIF N Ot E849.7 03/11/2015 ELIZABETH ROLDAN, SHARIF N Ot E885.9 03/11/2015 ELIZABETH ROLDAN, SHARIF N Ot V13.02 03/11/2015 ELIZABETH ROLDAN, SHARIF N Ot V45.81 03/11/2015 ELIZABETH ROLDAN, SHARIF N Ot 250.00 03/11/2015 ELIZABETH ROLDAN, SHARIF N Ot 272.0 03/11/2015 ELIZABETH ROLDAN, SHARIF N Ot 272.4 03/11/2015 ELIZABETH ROLDAN, SHARIF N Ot 275.2 03/11/2015 ELIZABETH ROLDAN, SHARIF N Ot 276.1 03/11/2015 ELIZABETH ROLDAN, SHARIF N Ot 276.8 03/11/2015 ELIZABETH ROLDAN, SHARIF N Ot 285.9 03/11/2015 ELIZABETH ROLDAN, SHARIF N Ot 300.01 03/11/2015 ELIZABETH ROLDAN, SHARIF N Ot 305.1 03/11/2015 ELIZABETH ROLDAN, SHARIF N Ot 311 03/11/2015 ELIZABETH ROLDAN, SHARIF N Ot 401.9 03/11/2015 ELIZABETH ROLDAN, SHARIF N Ot 414.00 03/11/2015 ELIZABETH ROLDAN, SHARIF N Ot 428.0 03/11/2015 ELIZABETH ROLDAN, SHARIF N Ot 428.33 03/11/2015 ELIZABETH ROLDAN, SHARIF N Ot 433.10 03/11/2015 ELIZABETH ROLDAN, SHARIF N Ot 433.30 03/11/2015 ELIZABETH ROLDAN, SHARIF N Ot 440.1 03/11/2015 ELIZABETH ROLDAN, SHARIF N Ot 440.20 03/11/2015 ELIZABETH ROLDAN, SHARIF N Ot 441.4 03/11/2015 ELIZABETH ROLDAN, SHARIF N Ot 442.9 03/11/2015 ELIZABETH ROLDAN, SHARIF N Ot 491.20 03/11/2015 ELIZABETH ROLDAN, SHARIF N Ot 715.90 03/11/2015 ELIZABETH ROLDAN, SHARIF N Ot 722.6 03/11/2015 ELIZABETH ROLDAN, SHARIF N Ot 780.1 03/11/2015 ELIZABETH ROLDAN, SHARIF N Ot 799.02 03/11/2015 ELIZABETH ROLDAN, SHARIF N Ot 920 03/11/2015 ELIZABETH ROLDAN, SHARIF N Ot E849.7 03/11/2015 ELIZABETH ROLDAN, SHARIF N Ot E885.9 03/11/2015 ELIZABETH ROLDAN, SHARIF N Ot V13.02 03/11/2015 ELIZABETH ROLDAN, SHARIF N Ot V45.81 03/12/2015 ELIZABETH ROLDAN, SHARIF N Ot 250.00 03/12/2015 ELIZABETH ROLDAN, SHARIF N Ot 272.0 03/12/2015 ELIZABETH ROLDAN, SHARIF N Ot 272.4 03/12/2015 ELIZABETH ROLDAN, SHARIF N Ot 275.2 03/12/2015 ELIZABETH ROLDAN, SHARIF N Ot 276.1 03/12/2015 ELIZABETH ROLDAN, SHARIF N Ot 276.8 03/12/2015 ELIZABETH ROLDAN, SHARIF N Ot 285.9 03/12/2015 ELIZABETH ROLDAN, SHARIF N Ot 300.01 03/12/2015 ELIZABETH ROLDAN, SHARIF N Ot 305.1 03/12/2015 ELIZABETH ROLDAN, SHARIF N Ot 311 03/12/2015 ELIZABETH ROLDAN, SHARIF N Ot 401.9 03/12/2015 ELIZABETH ROLDAN, SHARIF N Ot 414.00 03/12/2015 ELIZABETH ROLDAN, SHARIF N Ot 428.0 03/12/2015 ELIZABETH ROLDAN, SHARIF N Ot 428.33 03/12/2015 ELIZABETH ROLDAN, SHARIF N Ot 433.10 03/12/2015 ELIZABETH ROLDAN, SHARIF N Ot 433.30 03/12/2015 ELIZABETH ROLDAN, SHARIF N Ot 440.1 03/12/2015 ELIZABETH ROLDAN, SHARIF N Ot 440.20 03/12/2015 ELIZABETH ROLDAN, SHARIF N Ot 441.4 03/12/2015 ELIZABETH ROLDAN, SHARIF N Ot 442.9 03/12/2015 ELIZABETH ROLDAN, SHARIF N Ot 491.20 03/12/2015 ELIZABETH ROLDAN, SHARIF N Ot 715.90 03/12/2015 ELIZABETH ROLDAN, SHARIF N Ot 722.6 03/12/2015 ELIZABETH ROLDAN, SHARIF N Ot 780.1 03/12/2015 ELIZABETH ROLDAN, SHARIF N Ot 799.02 03/12/2015 ELIZABETH ROLDAN, SHARIF N Ot 920 03/12/2015 ELIZABETH ROLDAN, SHARIF N Ot E849.7 03/12/2015 ELIZABETH ROLDAN, SHARIF N Ot E885.9 03/12/2015 ELIZABETH ROLDAN, SHARIF N Ot V13.02 03/12/2015 ELIZABETH ROLDAN, SHARIF N Ot V45.81 03/13/2015 ELIZABETH ROLDAN, SHARIF N Ot 250.00 03/13/2015 ELIZABETH ROLDAN, SHARIF N Ot 272.0 03/13/2015 ELIZABETH ROLDAN, SHARIF N Ot 272.4 03/13/2015 ELIZABETH ROLDAN, SHARIF N Ot 275.2 03/13/2015 ELIZABETH ROLDAN, SHARIF N Ot 276.1 03/13/2015 ELIZABETH ROLDAN, SHARIF N Ot 276.8 03/13/2015 ELIZABETH ROLDAN, SHARIF N Ot 285.9 03/13/2015 ELIZABETH ROLDAN, SHARIF N Ot 300.01 03/13/2015 ELIZABETH ROLDAN, SHARIF N Ot 305.1 03/13/2015 ELIZABETH ROLDAN, SHARIF N Ot 311 03/13/2015 ELIZABETH ROLDAN, SHARIF N Ot 401.9 03/13/2015 ELIZABETH ROLDAN, SHARIF N Ot 414.00 03/13/2015 ELIZABETH ROLDAN, SHARIF N Ot 428.0 03/13/2015 ELIZABETH ROLDAN, SHARIF N Ot 428.33 03/13/2015 ELIZABETH ROLDAN, SHARIF N Ot 433.10 03/13/2015 ELIZABETH ROLDAN, SHARIF N Ot 433.30 03/13/2015 ELIZABETH ROLDAN, SHARIF N Ot 440.1 03/13/2015 ELIZABETH ROLDAN, SHARIF N Ot 440.20 03/13/2015 ELIZABETH ROLDAN, SHARIF N Ot 441.4 03/13/2015 ELIZABETH ROLDAN, SHARIF N Ot 442.9 03/13/2015 ELIZABETH ROLDAN, SHARIF N Ot 491.20 03/13/2015 ELIZABETH ROLDAN, SHARIF N Ot 715.90 03/13/2015 ELIZABETH ROLDAN, SHARIF N Ot 722.6 03/13/2015 ELIZABETH ROLDAN, SHARIF N Ot 780.1 03/13/2015 ELIZABETH ROLDAN, SHARIF N Ot 799.02 03/13/2015 ELIZABETH ROLDAN, SHARIF N Ot 920 03/13/2015 ELIZABETH ROLDAN, SHARIF N Ot E849.7 03/13/2015 ELIZABETH ROLDAN, SHARIF N Ot E885.9 03/13/2015 ELIZABETH ROLDAN, SHARIF N Ot V13.02 03/13/2015 ELIZABETH ROLDAN, SHARIF N Ot V45.81 03/14/2015 ELIZABETH ROLDAN, SHARIF N Ot 250.00 03/14/2015 ELIZABETH ROLDAN, SHARIF N Ot 272.0 03/14/2015 ELIZABETH ROLDAN, SHARIF N Ot 272.4 03/14/2015 ELIZABETH ROLDAN, SHARIF N Ot 275.2 03/14/2015 ELIZABETH ROLDAN, SHARIF N Ot 276.1 03/14/2015 ELIZABETH ROLDAN, SHARIF N Ot 276.8 03/14/2015 ELIZABETH ROLDAN, SHARIF N Ot 285.9 03/14/2015 ELIZABETH ROLDAN, SHARIF N Ot 300.01 03/14/2015 ELIZABETH ROLDAN, SHARIF N Ot 305.1 03/14/2015 ELIZABETH ROLDAN, SHARIF N Ot 311 03/14/2015 ELIZABETH ROLDAN, SHARIF N Ot 401.9 03/14/2015 ELIZABETH ROLDAN, SHARIF N Ot 414.00 03/14/2015 ELIZABETH ROLDAN, SHARIF N Ot 428.0 03/14/2015 ELIZABETH ROLDAN, SHARIF N Ot 428.33 03/14/2015 ELIZABETH ROLDAN, SHARIF N Ot 433.10 03/14/2015 ELIZABETH ROLDAN, SHARIF N Ot 433.30 03/14/2015 ELIZABETH ROLDAN, SHARIF N Ot 440.1 03/14/2015 ELIZABETH ROLDAN, SHARIF N Ot 440.20 03/14/2015 ELIZABETH ROLDAN, SHARIF N Ot 441.4 03/14/2015 ELIZABETH ROLDAN, SHARIF N Ot 442.9 03/14/2015 ELIZABETH ROLDAN, SHARIF N Ot 491.20 03/14/2015 ELIZABETH ROLDAN, SHARIF N Ot 715.90 03/14/2015 ELIZABETH ROLDAN, SHARIF N Ot 722.6 03/14/2015 ELIZABETH ROLDAN, SHARIF N Ot 780.1 03/14/2015 ELIZABETH ROLDAN, SHARIF N Ot 799.02 03/14/2015 ELIZABETH ROLDAN, SHARIF N Ot 920 03/14/2015 ELIZABETH ROLDAN, SHARIF N Ot E849.7 03/14/2015 ELIZABETH ROLDAN, SHAIRF N Ot E885.9 03/14/2015 ELIZABETH ROLDAN, SHARIF N Ot V13.02 03/14/2015 ELIZABETH ROLDAN, SHARIF N Ot V45.81 03/14/2015 ELIZABETH ROLDAN, SHARIF N Ot 250.00 03/14/2015 ELIZABETH ROLDAN, SHARIF N Ot 272.0 03/14/2015 ELIZABETH ROLDAN, SHARIF N Ot 272.4 03/14/2015 ELIZABETH ROLDAN, SHARIF N Ot 275.2 03/14/2015 ELIZABETH ROLDAN, SHARIF N Ot 276.1 03/14/2015 ELIZABETH ROLDAN, SHARIF N Ot 276.8 03/14/2015 ELIZABETH ROLDAN, SHARIF N Ot 285.9 03/14/2015 ELIZABETH ROLDAN, SHARIF N Ot 300.01 03/14/2015 ELIZABETH ROLDAN, SHARIF N Ot 305.1 03/14/2015 ELIZABETH ROLDAN, SHARIF N Ot 311 03/14/2015 ELIZABETH ROLDAN, SHARIF N Ot 401.9 03/14/2015 ELIZABETH ROLDAN, SHARIF N Ot 414.00 03/14/2015 ELIZABETH ROLDAN, SHARIF N Ot 428.0 03/14/2015 ELIZABETH ROLDAN, SHARIF N Ot 428.33 03/14/2015 ELIZABETH ROLDAN, SHARIF N Ot 433.10 03/14/2015 ELIZABETH ROLDAN, SHARIF N Ot 433.30 03/14/2015 ELIZABETH ROLDAN, SHARIF N Ot 440.1 03/14/2015 ELIZABETH ROLDAN, SHARIF N Ot 440.20 03/14/2015 ELIZABETH ROLDAN, SHARIF N Ot 441.4 03/14/2015 ELIZABETH ROLDAN, SHARIF N Ot 442.9 03/14/2015 ELIZABETH ROLDAN, SHARIF N Ot 491.20 03/14/2015 ELIZABETH ROLDAN, SHARIF N Ot 715.90 03/14/2015 ELIZABETH ROLDAN, SHARIF N Ot 722.6 03/14/2015 ELIZABETH ROLDAN, SHARIF N Ot 780.1 03/14/2015 ELIZABETH ROLDAN, SHARIF N Ot 799.02 03/14/2015 ELIZABETH ROLDAN, SHARIF N Ot 920 03/14/2015 ELIZABETH ROLDAN, SHARIF N Ot E849.7 03/14/2015 ELIZABETH ROLDAN, SHARIF N Ot E885.9 03/14/2015 ELIZABETH ROLDAN, SHARIF N Ot V13.02 03/14/2015 ELIZABETH ROLDAN, SHARIF N Ot V45.81 03/15/2015 ELIZABETH ROLDAN, SHARIF N Ot 250.00 03/15/2015 ELIZABETH ROLDAN, SHARIF N Ot 272.0 03/15/2015 ELIZABETH ROLDAN, SHARIF N Ot 272.4 03/15/2015 ELIZABETH ROLDAN, SHARIF N Ot 275.2 03/15/2015 ELIZABETH ROLDAN, SHARIF N Ot 276.1 03/15/2015 ELIZABETH ROLDAN, SHARIF N Ot 276.8 03/15/2015 ELIZABETH ROLADN, SHARIF N Ot 285.9 03/15/2015 ELIZABETH ROLDAN, SHARIF N Ot 300.01 03/15/2015 ELIZABETH ROLDAN, SHARIF N Ot 305.1 03/15/2015 ELIZABETH ROLDAN, SHARIF N Ot 311 03/15/2015 ELIZABETH ROLDAN, SHARIF N Ot 401.9 03/15/2015 ELIZABETH ROLDAN, SHARIF N Ot 414.00 03/15/2015 ELIZABETH ROLDAN, SHARIF N Ot 428.0 03/15/2015 ELIZABETH ROLDAN, SHARIF N Ot 428.33 03/15/2015 ELIZABETH ROLDAN, SHARIF N Ot 433.10 03/15/2015 ELIZABETH ROLDAN, SHARIF N Ot 433.30 03/15/2015 ELIZABETH ROLDAN, SHARIF N Ot 440.1 03/15/2015 ELIZABETH ROLDAN, SHARIF N Ot 440.20 03/15/2015 ELIZABETH ROLDAN, SHARIF N Ot 441.4 03/15/2015 ELIZABETH ROLDAN, SHARIF N Ot 442.9 03/15/2015 ELIZABETH ROLDAN, SHARIF N Ot 491.20 03/15/2015 ELIZABETH ROLDAN, SHARIF N Ot 715.90 03/15/2015 ELIZABETH ROLDAN, SHARIF N Ot 722.6 03/15/2015 ELIZABETH ROLDAN, SHARIF N Ot 780.1 03/15/2015 ELIZABETH ROLDAN, SHARIF N Ot 799.02 03/15/2015 ELIZABETH ROLDAN, SHARIF N Ot 920 03/15/2015 ELIZABETH ROLDAN, SHARIF N Ot E849.7 03/15/2015 ELIZABETH ROLDAN, SHARIF N Ot E885.9 03/15/2015 ELIZABETH ROLDAN, SHARIF N Ot V13.02 03/15/2015 ELIZABETH ROLDAN, SHARIF N Ot V45.81 03/15/2015 ELIZABETH ROLDAN, SHARIF N Ot 041.3 03/15/2015 ELIZABETH ROLDAN, SHARIF N Ot 250.00 03/15/2015 ELIZABETH ROLDAN, SHARIF N Ot 272.0 03/15/2015 ELIZABETH ROLDAN, SHARIF N Ot 272.4 03/15/2015 ELIZABETH ROLDAN, SHARIF N Ot 275.2 03/15/2015 ELIZABETH ROLDAN, SHARIF N Ot 276.1 03/15/2015 ELIZABETH ROLDAN, SHARIF N Ot 276.8 03/15/2015 ELIZABETH ROLDAN, SHARIF N Ot 285.9 03/15/2015 ELIZABETH ROLDAN, SHARIF N Ot 300.01 03/15/2015 ELIZABETH ROLDAN, SHARIF N Ot 305.1 03/15/2015 ELIZABETH ROLDAN, SHARIF N Ot 311 03/15/2015 ELIZABETH ROLDAN, SHARIF N Ot 401.9 03/15/2015 ELIZABETH ROLDAN, SHARIF N Ot 414.00 03/15/2015 ELIZABETH ROLDAN, SHARIF N Ot 428.0 03/15/2015 ELIZABETH ROLDAN, SHARIF N Ot 428.33 03/15/2015 ELIZABETH ROLDAN, SHARIF N Ot 433.10 03/15/2015 ELIZABETH ROLDAN, SHARIF N Ot 433.30 03/15/2015 ELIZABETH ROLDAN, SHARIF N Ot 440.1 03/15/2015 ELIZABETH ROLDAN, SHARIF N Ot 440.20 03/15/2015 ELIZABETH ROLDAN, SHARIF N Ot 441.4 03/15/2015 ELIZABETH ROLDAN, SHARIF N Ot 442.9 03/15/2015 ELIZABETH ROLDAN, SHARIF N Ot 491.20 03/15/2015 ELIZABETH ROLDAN, SHARIF N Ot 491.21 03/15/2015 ELIZABETH ROLDAN, SHARIF N Ot 596.54 03/15/2015 ELIZABETH ROLDAN, SHARIF N Ot 599.0 03/15/2015 ELIZABETH ROLDAN, SHARIF N Ot 715.90 03/15/2015 ELIZABETH ROLDAN, SHARIF N Ot 722.6 03/15/2015 ELIZABETH ROLDAN, SHARIF N Ot 780.1 03/15/2015 ELIZABETH ROLDAN, SHARIF N Ot 788.20 03/15/2015 ELIZABETH ROLDAN, SHARIF N Ot 799.02 03/15/2015 ELIZABETH ROLDAN, SHARIF N Ot 920 03/15/2015 ELIZABETH ROLDAN, SHARIF N Ot E849.7 03/15/2015 ELIZABETH ROLDAN, SHARIF N Ot E885.9 03/15/2015 ELIZABETH ROLDAN, SHARIF N Ot V13.02 03/15/2015 ELIZABETH ROLDAN, SHARIF N Ot V45.81 12/07/2015 Ot 388.30 12/07/2015 Ot 780.4 12/07/2015 Ot 796.2 12/07/2015 Ot 799.51 12/07/2015 CAROLINE MENDOZA MD Ot 338.29 12/07/2015 CAROLINE MENDOZA MD Ot 722.6 12/07/2015 CAROLINE MENDOZA MD Ot 724.2 12/07/2015 CAROLINE MENDOZA MD Ot 724.4 12/07/2015 MAX DHILLONP Ot 401.1 12/07/2015 MAX DHILLON COMMERCIAL PROPERTY MANAGER Ot 424.1 12/07/2015 MAX DHILLON COMMERCIAL PROPERTY MANAGER Ot 785.2 12/07/2015 MAX DHILLON COMMERCIAL PROPERTY MANAGER Ot 786.05 12/07/2015 MARY VILLALOBOS ANDRE Elroy Ot 715.91 12/07/2015 ANDRE HERNANDEZ DO Ot 727.61 12/07/2015 DIANNA MACHADO MD Ot 278.00 12/07/2015 DIANNA MACHADO MD Ot 721.3 12/07/2015 JEANNETTE ROLDAN, DIANNA Adhikari Ot 724.6 12/07/2015 DIANNA MACHADO MD Ot 729.1 12/07/2015 DIANNA MACHADO MD Ot V58.69 12/07/2015 DIANNA MACHADO MD Ot V85.35 12/07/2015 DIANNA MACHADO MD Ot 278.00 12/07/2015 DIANNA MACHADO MD Ot 715.95 12/07/2015 DIANNA MACHADO MD Ot 721.3 12/07/2015 DIANNA MACHADO MD Ot 729.1 12/07/2015 DIANNA MACHADO MD Ot V58.69 12/07/2015 DIANNA MACHADO MD Ot V85.33 12/07/2015 GARY ROLDAN, SHANIQUE Funk Ot 791.9 12/07/2015 TARA SOTO MD Ot M16.11 05/16/2016 PRUDENCE SHAW MD Ot E11.9 TYPE 2 DIABETES MELLITUS WITHOUT COMPLIC 05/16/2016 PRUDENCE SHAW MD Ot 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 05/16/2016 PRUDENCE SHAW MD Ot I10 ESSENTIAL (PRIMARY) HYPERTENSION 05/16/2016 PRUDENCE SHAW MD Ot I25.10 ATHSCL HEART DISEASE OF [place] CORONARY 05/16/2016 PRUDENCE SHAW MD Ot I71.4 ABDOMINAL AORTIC ANEURYSM, WITHOUT RUPTU 05/16/2016 PRUDENCE SHAW MD Ot J44.9 CHRONIC OBSTRUCTIVE PULMONARY DISEASE, U 05/16/2016 PRUDENCE SHAW MD Ot K21.9 GASTRO-ESOPHAGEAL REFLUX DISEASE WITHOUT 05/16/2016 PRUDENCE SHAW MD Ot K59.00 CONSTIPATION, UNSPECIFIED 05/16/2016 PRUDENCE SHAW MD Ot Z87.891 PERSONAL HISTORY OF NICOTINE DEPENDENCE 05/16/2016 PRUDENCE SHAW MD Ot 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 BYPASS GRAFT 11/22/2016 LUL NORWOOD MD Ot 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 (ISD) 11/22/2016 LUL NORWOOD MD Ot R32 UNSPECIFIED URINARY INCONTINENCE 11/22/2016 LUL NORWOOD MD, Ot Z01.818 ENCOUNTER FOR OTHER PREPROCEDURAL EXAMIN 11/28/2016 LUL NORWOOD MD, Ot 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 (ISD) 11/28/2016 LUL NORWOOD MD, Ot R32 UNSPECIFIED URINARY INCONTINENCE 11/28/2016 LUL NORWOOD MD, Ot Z01.818 ENCOUNTER FOR OTHER PREPROCEDURAL EXAMIN 11/28/2016 LUL NORWOOD MD Ot E11.9 TYPE 2 DIABETES MELLITUS WITHOUT COMPLIC 11/28/2016 LUL NORWOOD MD, Ot N32.81 OVERACTIVE BLADDER 11/28/2016 LUL NORWOOD MD Ot 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 (ISD) 11/28/2016 LUL NORWOOD MD Ot 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 11/28/2016 LUL NORWOOD MD, Ot 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 11/29/2016 LUL NORWOOD MD Ot E11.9 TYPE 2 DIABETES MELLITUS WITHOUT COMPLIC 11/29/2016 LUL NORWOOD MD Ot N32.81 OVERACTIVE BLADDER 11/29/2016 LUL NORWOOD MD, Ot 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 (ISD) 11/29/2016 LUL NORWOOD MD, Ot 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 11/29/2016 LUL NORWOOD MD, Ot 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 12/03/2016 LUL NORWOOD MD Ot E11.9 TYPE 2 DIABETES MELLITUS WITHOUT COMPLIC 12/03/2016 LUL NORWOOD MD, Ot N32.81 OVERACTIVE BLADDER 12/03/2016 LUL NORWOOD MD, Ot 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 (ISD) 12/03/2016 LUL NORWOOD MD, Ot 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 12/03/2016 LUL NORWOOD MD, Ot 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 02/07/2017 LUL NORWOOD MD Ot N32.81 OVERACTIVE BLADDER 02/07/2017 LUL NORWOOD MD Ot 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 (ISD) 02/07/2017 LUL NORWOOD MD Ot 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 02/07/2017 LUL NORWOOD MD Ot Z01.818 ENCOUNTER FOR OTHER PREPROCEDURAL EXAMIN 02/13/2017 LUL NORWOOD MD Ot N32.81 OVERACTIVE BLADDER 02/13/2017 LUL NORWOOD MD, Ot 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 (ISD) 02/13/2017 LUL NORWOOD MD, Ot 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 02/18/2017 LUL NORWOOD MD, Ot N32.81 OVERACTIVE BLADDER 02/18/2017 LUL NORWOOD MD, Ot 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 (ISD) 02/18/2017 LUL NORWOOD MD, Ot 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 Procedures Code [place] [address] INDIV PSYTX 45/50 MIN 10/22/2012 45903 ROUTINE VENIPUNCTURE 10/24/2012 24986 BMP 10/24/2012 15885 MAGNESIUM 2011 [id number] GFR CALC (RESULT ONLY) 10/24/2012 BLOOD PRESSURE CHECK 11/14/2012 23398 ROUTINE VENIPUNCTURE 01/15/2013 95044 BMP 01/15/2013 6172656 GFR CALC (RESULT ONLY) 01/15/2013 16261 LIPID PANEL 01/15 74271 ROUTINE VENIPUNCTURE 05/06/2013 81485 A1C (IN-HOUSE) 45639 CMP 05/06/2013 94441 MAGNESIUM 2012 [id number] GFR CALC (RESULT ONLY) 05/06/2013 84097 CPK 05/06/2013 99629 PSYTX PT&/FAMILY 45 MINUTES 05/14/2013 75478 OXIMETRY 2012 J7613 ALBUTEROL UNIT DOSE FORM INHALED 07/01/2013 J2930 SOLUMEDROL INJ 44583 THERAPUTIC INJ SQ/IM 07/02/2013 77201 OXIMETRY 2012 2000F BLOOD PRESSURE CHECK 07/02/2013 G0008 FLU ADMINISTRATION (MEDICARE ONLY) 08/06/2013 99846 OXIMETRY 2012 72582 ROUTINE VENIPUNCTURE 08/31/2013 87111 GLUCOSE 2012 31583 LIPID PANEL 08/31 29396 A1C (IN-HOUSE) 49415 XRAY CHEST 2 VIEW 11/12/2013 54800 MEASURE BLOOD OXYGEN LEVEL 11/12/2013 49292 THERAPUTIC INJ SQ/IM 12/11/2013 J2930 SOLUMEDROL INJ 86843 A1C (IN-HOUSE) 15660 ROUTINE VENIPUNCTURE 12/15/2013 68315 EKG, TRACING (IN-HOUSE) 12/15/2013 64896 XRAY CHEST 2 VIEW 12/15/2013 21654 ECHO 2D 2013 65136 OXIMETRY 2013 01959 CBC 12/15/2013 4051673 GFR CALC (RESULT ONLY) 12/15/2013 91034 CMP 12/15/2013 52931 MAGNESIUM 2013 75513 BNP 12/16/2013 20865 ROUTINE VENIPUNCTURE 01/13/2014 18491 OXIMETRY 2013 4891090 GFR CALC (RESULT ONLY) 01/14/2014 05824 CMP 01/14/2014 88571 MAGNESIUM 2013 54354 OXIMETRY 2013 34914 ROUTINE VENIPUNCTURE 03/24/2014 54190 LIPID PANEL 03/24 12341 ROUTINE VENIPUNCTURE 07/02/2014 3258772 GFR CALC (RESULT ONLY) 07/02/2014 58939 CMP 07/02/2014 21483 LIPID PANEL 07/02 17879 [employer] 2013 54608 US SOFT TISSUE (SPECIFY LOCATION) 09/15/2014 CARDIOLOG CHELLE GOETZ 09/15/2014 G0008 FLU ADMINISTRATION (MEDICARE ONLY) 09/15/2014 PULMONARY WILL CASPER 09/15/2014 74383 US ABDOMINAL ULTRASOUND, COMPLETE 11/26/2014 53998 LEFT HEART CATH 01/25/2015 50285 US CAROTID DOPPLER 01/25/2015 [address] ANGIO, EXTREMITY, LOWER 02/08/2015 Results Test Result Range Capillary blood glucose measurement by glucometer (mass/volume) - 11/27/16 07: 15 Capillary blood glucose measurement by glucometer (mass/volume) 117 mg/dL 70-110 Methicillin resistant Staphylococcus aureus (MRSA) screening culture - 07:15 MRSA SCREEN RESULT MRSA ISOLATED NRG Capillary blood glucose measurement by glucometer (mass/volume) - 11/27/16 10: 28 Capillary blood glucose measurement by glucometer (mass/volume) 127 mg/dL 70-110 Methicillin resistant Staphylococcus aureus (MRSA) screening culture - 06:10 MRSA SCREEN RESULT MRSA ISOLATED NRG Encounters ACCT No. Visit Date/Time Discharge Status Pt. Type Provider Facility Loc./Unit Complaint [id number] 03/18/2015 16:54:00 03/18/2015 23: 59:59 CLS Outpatient SHANIQUE VEGA MD [id number] 01/25/2015 09:06:00 01/25/2015 23: 59:59 CLS Outpatient SHARIF JOHNSON MD [id number] 12/06/2014 05:51:00 12/06/2014 23: 59:59 CLS Outpatient SHANIQUE VEGA MD [id number] 11/26/2014 15:23:00 11/26/2014 23: 59:59 CLS Outpatient SHARIF JOHNSON MD [id number] 11/26/2014 15:23:00 11/26/2014 23: 59:59 CLS Outpatient SHARIF JOHNSON MD [id number] 11/13/2014 15:20:00 11/13/2014 23: 59:59 CLS Outpatient ILIR VILLALOBOSMIKE Dionne [id number] 10/27/2014 13:31:00 10/27/2014 23: 59:59 CLS Outpatient MASSIEL VEGA [id number] 09/15/2014 16:03:00 09/15/2014 23: 59:59 CLS Outpatient SHARIF JOHNSON MD [id number] 08/17/2014 15:49:00 08/17/2014 23: 59:59 CLS Outpatient SHARIF JOHNSON MD [id number] 07/29/2014 10:54:00 07/29/2014 23: 59:59 CLS Outpatient DESI BAIG APRN [id number] 07/02/2014 11:34:00 07/02/2014 23: 59:59 CLS Outpatient SHARIF JOHNSON MD [id number] 06/18/2014 14:51:00 06/18/2014 23: 59:59 CLS Outpatient SHARIF JOHNSON MD [id number] 06/02/2014 14:58:00 06/02/2014 23: 59:59 CLS Outpatient BAIG AUBREYDESI [id number] 05/18/2014 14:07:00 05/18/2014 23: 59:59 CLS Outpatient SHARIF JOHNSON MD [id number] 03/24/2014 15:01:00 03/24/2014 23: 59:59 CLS Outpatient SHARIF JOHNSON MD N [id number] 03/11/2014 13:43:00 03/11/2014 23: 59:59 CLS Outpatient SHARIF JOHNSON MD N [id number] 01/28/2014 14:29:00 01/28/2014 23: 59:59 CLS Outpatient SHARIF JOHNSON MD [id number] 01/28/2014 14:29:00 01/28/2014 23: 59:59 CLS Outpatient SHARIF JOHNSON MD [id number] 01/13/2014 15:39:00 01/13/2014 23: 59:59 CLS Outpatient CAROLINE MENDOZA MD [id number] 01/13/2014 15:39:00 01/13/2014 23: 59:59 CLS Outpatient CAROLINE MENDOZA MD [id number] 12/15/2013 15:34:00 12/15/2013 23: 59:59 CLS Outpatient MIKE HAZEL DO [id number] 12/15/2013 15:34:00 12/15/2013 23: 59:59 CLS Outpatient MAX DHILLON APRN [id number] 12/11/2013 11:52:00 12/11/2013 23: 59:59 CLS Outpatient MAX DHILLON APRN [id number] 11/12/2013 16:30:00 11/12/2013 23: 59:59 CLS Outpatient SHAHNAZ MARQUEZ APRN [id number] 11/09/2013 12:50:00 11/09/2013 23: 59:59 CLS Outpatient AUDIE MARC APRN [id number] 11/03/2013 09:32:00 11/03/2013 23: 59:59 CLS Outpatient JOVANNI BURGOSDESI [id number] 10/20/2013 09:44:00 10/20/2013 23: 59:59 CLS Outpatient DESI BAIG APRN [id number] 09/22/2013 14:05:00 09/22/2013 23: 59:59 CLS Outpatient CAROLINE MENDOZA MD [id number] 09/08/2013 08:20:00 09/08/2013 23: 59:59 CLS Outpatient CAROLINE MENDOZA MD [id number] 08/31/2013 08:05:00 08/31/2013 23: 59:59 CLS Outpatient CAROLINE MENDOZA MD [id number] 08/07/2013 11:43:00 08/07/2013 23: 59:59 CLS Outpatient MARIA DE JSEUS BUTLER DO [id number] 01/22/2013 09:37:00 01/22/2013 23: 59:59 CLS Outpatient MARIA DE JESUS BUTLER DO [id number] 01/15/2013 10:49:00 01/15/2013 23: 59:59 CLS Outpatient CAROLINE MENDOZA MD [id number] 01/15/2013 10:49:00 01/15/2013 23: 59:59 CLS Outpatient CAROLINE MENDOZA MD [id number] 12/23/2012 13:28:00 12/23/2012 23: 59:59 CLS Outpatient MARIA DE JESUS BUTLER DO [id number] 11/24/2012 14:22:00 11/24/2012 23: 59:59 CLS Outpatient MIKE HAZEL DO [id number] 11/14/2012 13:45:00 11/14/2012 23: 59:59 CLS Outpatient MIKE HAZEL DO [id number] 10/24/2012 13:17:00 10/24/2012 23: 59:59 CLS Outpatient SHANIQUE VEGA MD [id number] 10/24/2012 13:17:00 10/24/2012 23: 59:59 CLS Outpatient [id number] 10/21/2012 10:34:00 10/21/2012 23: 59:59 CLS Outpatient [id number] 09/11/2012 11:29:00 09/11/2012 23: 59:59 CLS Outpatient MARIA DE JESUS BUTLER DO [id number] 07/27/2013 11:07:00 Document Registration [id number] 07/02/2013 08:45:00 Document Registration [id number] 07/01/2013 11:44:00 Document Registration [id number] 07/01/2013 11:44:00 Document Registration [id number] 06/05/2013 08:35:00 Document Registration [id number] 05/13/2013 09:45:00 Document Registration [id number] 05/06/2013 10:52:00 Document Registration [id number] 04/21/2013 11:00:00 Document Registration [id number] 03/13/2013 11:19:00 Document Registration
--- OUTSIDE RECORDS SUMMARY | 2017-02-26 20:07 | XMS REPORT ---
Author Author SHANIQUE VEGA [facility] eClinicalWorks Address Unknown Phone Unavailable Care Team Providers Care Regional Manager Name Role Phone SHANIQUE VEGA CP Unavailable Allergies No Known Allergies Problems Problem Type Condition Code Onset Dates Condition Status Assessment Coronary artery disease I25.10 Active Assessment Arthritis M19.90 Active Problem Coronary artery disease I25.10 Active Problem Anxiety state, unspecified 300.00 Active Problem Hypertension I10 Active Problem Other and unspecified hyperlipidemia 272.4 Active Assessment Hypertension I10 Active Problem Unspecified peripheral vascular disease 443.9 Active Problem Major depressive disorder, single episode, unspecified 296.20 Active Medications No Known Medications Procedures Procedure Coding System Code Date Stable Visit (10 minutes) CPT-4 80965 Sep 01, 2015 Results No Known Results Summary Purpose eClinicalWorks Submission
--- OUTSIDE RECORDS SUMMARY | 2017-02-26 20:07 | XMS REPORT ---
Author Author SHANIQUE VEGA [facility] eClinicalWorks Address Unknown Phone Unavailable Care Team Providers Care Handbag Frames Inspector Name Role Phone SHANIQUE VEGA CP Unavailable Allergies No Known Allergies Problems Problem Type Condition Code Onset Dates Condition Status Problem Coronary artery disease I25.10 Active Problem Anxiety state, unspecified 300.00 Active Problem Hypertension I10 Active Problem Other and unspecified hyperlipidemia 272.4 Active Problem Unspecified peripheral vascular disease 443.9 Active Problem Major depressive disorder, single episode, unspecified 296.20 Active Medications No Known Medications Results No Known Results Summary Purpose eClinicalWorks Submission
--- OUTSIDE RECORDS SUMMARY | 2017-02-26 20:07 | XMS REPORT ---
Author Author SHANIQUE VEGA [facility] eClinicalWorks Address Unknown Phone Unavailable Care Team Providers Care Brand Advisor Name Role Phone SHANIQUE VEGA CP Unavailable [...]
--- OUTSIDE RECORDS SUMMARY | 2017-02-26 20:08 | XMS REPORT ---
Author Author SHANIQUE VEGA [facility] eClinicalWorks Address Unknown Phone Unavailable Care Team Providers Care Adult Family Home Program Manager Name Role Phone SHANIQUE VEGA CP Unavailable Allergies No Known Allergies Problems Problem Type Condition ICD-9 Code Onset Dates Condition Status Problem Major depressive disorder, recurrent episode, unspecified 296.30 Active Problem Other and unspecified hyperlipidemia 272.4 Active Problem Coronary atherosclerosis of unspecified type of vessel, dry creek or graft 414.00 Active Problem Localized superficial swelling, mass, or lump 782.2 Active Problem Undiagnosed cardiac murmurs 785.2 Active Problem Shortness of breath 786.05 Active Problem Effusion of ankle and foot joint 719.07 Active Problem Pneumonia, organism unspecified 486 Active Problem Need for prophylactic vaccination and inoculation, Influenza V04.81 Active Problem Obstructive chronic bronchitis, with (acute) exacerbation 491.21 Active Problem Major depressive disorder, single episode, unspecified 296.20 Active Problem Generalized anxiety disorder 300.02 Active Problem Acute bronchitis 466.0 Active Problem Other dysfunctions of sleep stages or arousal from sleep 307.47 Active Problem Major depressive disorder, recurrent episode, moderate 296.32 Active Problem Edema 782.3 Active Problem Anxiety state, unspecified 300.00 Active Problem 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 Problem Cough 786.2 Active Problem Counseling on substance use and abuse V65.42 Active Problem Panic disorder without agoraphobia 300.01 Active Problem Wheezing 786.07 Active Problem Essential hypertension, benign 401.1 Active Problem Nausea alone 787.02 Active Problem ZOSTAVAX DX V05.8 Active Problem Palpitations 785.1 Active Problem Unspecified essential hypertension 401.9 Active Problem Other abnormal glucose 790.29 Active Problem Unspecified peripheral vascular disease 443.9 Active Problem Nonspecific abnormal electrocardiogram (ECG) (EKG) 794.31 Active Problem Occlusion and stenosis of carotid artery without mention of cerebral infarction 433.10 Active Problem Encounter for long-term (current) use of other medications V58.69 Active Problem 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
--- OUTSIDE RECORDS SUMMARY | 2017-02-26 20:09 | XMS REPORT ---
Author Author SHANIQUE VEGA Organization e[employer] Address Unknown Phone Unavailable Care Team Providers Care Manager Environmental Name Role Phone SHANIQUE VEGA CP Unavailable [...]
--- OUTSIDE RECORDS SUMMARY | 2017-02-26 20:09 | XMS REPORT ---
Author Author SHANIQUE VEGA Organization [employer] Address Unknown Phone Unavailable Care Team Providers Care Silo Tender Name Role Phone SHANIQUE VEGA CP Unavailable [...]
--- OUTSIDE RECORDS SUMMARY | 2017-02-26 20:11 | XMS REPORT ---
Author Author SHANIQUE VEGA Organization [employer] Address Unknown Phone Unavailable Care Team Providers Care Inside Sales Executive Name Role Phone SHANIQUE VEGA CP Unavailable Allergies No Known Allergies Problems Problem Type Condition Code Onset Dates Condition Status Problem Other chronic pain G89.29 Active Problem Hyperlipidemia E78.5 Active Problem Low back pain M54.5 Active Assessment Other chronic pain G89.29 Active Problem Hypertension I10 Active Problem Coronary artery disease I25.10 Active Medications Medication Code System Code Instructions Start Date End Date Status Dosage MS Jenn [facility] [address]-26 30 MG Orally every 12 hrs (PT IS IN [facility]) June 01, 2016 Sep 25, 2016 1 tablet Results No Known Results Summary Purpose eClinicalWorks Submission
--- OUTSIDE RECORDS SUMMARY | 2017-02-26 20:12 | XMS REPORT ---
Author SHANIQUE Perez Organization eClinicalWorks Address Unknown Phone Unavailable Care Team Providers Care Second Baker Name Role Phone SHANIQUE VEGA CP Unavailable Allergies No Known Allergies Problems Problem Type Condition Code Onset Dates Condition Status Problem Other chronic pain G89.29 Active Problem Hyperlipidemia E78.5 Active Problem Low back pain M54.5 Active Problem Hypertension I10 Active Problem Coronary artery disease I25.10 Active Medications Medication Code System Code Instructions Start Date End Date Status Dosage MS Barajas [facility] [address]-11 30 MG Orally every 12 hrs (PT IS IN [facility]) June 01, 2016 Sep 25, 2016 1 tablet Results No Known Results Summary Purpose eClinicalWorks Submission
== END 2017-02-12 11:40 | disposition home or self-care (01) ==
LOC: DELPENDDIS → SDC 05:56
PROVIDERS: ATTEND Urology
DX: N36.42 Intrinsic sphincter deficiency (ISD) (principal); N39.46 Mixed incontinence; N32.81 Overactive bladder
CPT/HCPCS: 87081

== ENCOUNTER → 2017-10-04 | Outpatient (CLI) | payer MEDICARE, MEDICAID ==
[~2017-10-04] MED LIST changes: +NITR-65 PO; +PHEN-639 PO
== END ==
LOC: CARD 13:16
PROVIDERS: ATTEND Internal Medicine Cardiovascular Disease
DX: R06.02 Shortness of breath (principal); I48.0 Paroxysmal atrial fibrillation; I10 Essential (primary) hypertension; E78.5 Hyperlipidemia, unspecified; I25.10 Atherosclerotic heart disease of native coronary artery without angina pectoris; I65.29 Occlusion and stenosis of unspecified carotid artery
CPT/HCPCS: 93306

== ENCOUNTER → 2017-10-08 | Outpatient (CLI) | payer MEDICARE, MEDICAID ==
[~2017-10-08] VITALS: Ht 157.5 cm; Wt 77.1 kg
[~2017-10-08] MED LIST changes: +CATHETER FLUSH 10 ML SYR IV PRN; +REGADENOSON 0.4 MG/5 ML SYR (LEXISCAN) IV ONE
--- NOTE | 2017-10-08 22:40 | STRESS TEST ---
DATE OF SERVICE: 10/08/2017 RESTING AND POST REGADENOSON TECHNETIUM-99M TETROFOSMIN SPECT CT IMAGING ORDERING PHYSICIAN: Dr. Torrez. PRIMARY CARE PHYSICIAN: . CLINICAL DIAGNOSES: Shortness of breath, paroxysmal atrial fibrillation, hypertension, hyperlipidemia, coronary artery disease. Baseline images were carried out after injection of 10.53 mCi of technetium-99m tetrofosmin. This was followed by 0.4 mg regadenoson and 31.6 mCi technetium-99m tetrofosmin for stress imaging. The electrocardiogram showed atrial fibrillation throughout the study. There was nonspecific ST abnormality throughout the study. The patient tolerated the procedure well and did not report significant symptoms. Review of images at rest and following stress indicates a small transient apical perfusion defect. Gated images show normal global left ventricular systolic function with normal regional wall motion. Left ventricular ejection fraction is calculated to be 71%. Left ventricular end-diastolic volume is 42 mL. TID is absent (1.18). CONCLUSIONS: 1. This study is indicative of small amount of apical ischemia. 2. Normal regional wall motion. 3. Normal global left ventricular systolic function with a calculated ejection fraction of 71%. Job ID: [id number] DocumentID: [id number] Dictated Date: 10/08/2017 12:53:30 [employer]acht Date: 10/08/2017 19:03:49 Dictated By: CHELLE TORREZ MD, MA, FACP, FACC,
== END ==
LOC: CARD 07:01
PROVIDERS: ATTEND Internal Medicine Cardiovascular Disease
DX: I48.0 Paroxysmal atrial fibrillation (principal); I10 Essential (primary) hypertension; I25.10 Atherosclerotic heart disease of native coronary artery without angina pectoris; I65.29 Occlusion and stenosis of unspecified carotid artery; E78.5 Hyperlipidemia, unspecified
CPT/HCPCS: 78452; 93017

== ENCOUNTER → 2017-10-15 | Outpatient (CLI) | payer MEDICARE, MEDICAID ==
[~2017-10-15] MED LIST changes: +APIX5TAB PO; +ASPI-999 PO; -CATHETER FLUSH 10 ML SYR IV PRN; +ESTR42.52 VG; +LORA-404 PO; -REGADENOSON 0.4 MG/5 ML SYR (LEXISCAN) IV ONE
--- NOTE | 2017-10-15 20:33 | Diagnostic Imaging Report ---
Ultrasound of the abdominal aorta. INDICATION: Follow-up AAA. FINDINGS: The proximal abdominal aorta is 2.4 cm and at mid segment is 2.5 cm and distally is 3.7 cm in caliber. This compares to 3.8 cm measurement of the distal abdominal aorta based on CT scan of 05/14/2016. The common iliac arteries are obscured by bowel gas. IMPRESSION: Abdominal aortic aneurysm measuring up to 3.7 cm in caliber. Dictated by: Dictated on workstation # [id number]
== END ==
LOC: RAD 07:43
PROVIDERS: ATTEND Internal Medicine Cardiovascular Disease
DX: I71.4 Abdominal aortic aneurysm, without rupture (principal); I25.10 Atherosclerotic heart disease of native coronary artery without angina pectoris; I48.0 Paroxysmal atrial fibrillation; I10 Essential (primary) hypertension; E78.4 Other hyperlipidemia
CPT/HCPCS: 76775

== ENCOUNTER → 2017-11-04 | Outpatient (CLI) | payer MEDICARE, MEDICAID ==
[~2017-11-04] MED LIST changes: +METO50TA15 PO; -METO50TA2 PO
== END ==
LOC: PREOP 05:57
PROVIDERS: ATTEND Urology
DX: Z01.818 Encounter for other preprocedural examination (principal); R32 Unspecified urinary incontinence; R33.9 Retention of urine, unspecified

== ENCOUNTER 2017-11-19 05:29 | Outpatient (CLI) | payer MEDICARE, MEDICAID ==
[~2017-11-19] VITALS: Ht 157.5 cm; Wt 77.1 kg
[2017-11-19] MEDS ORDERED: METF500T4 PO (14:32)
== END 2017-11-19 14:39 ==
LOC: PREOP 05:29
PROVIDERS: ATTEND Urology
DX: Z01.818 Encounter for other preprocedural examination (principal); R32 Unspecified urinary incontinence; R33.9 Retention of urine, unspecified

== ENCOUNTER → 2017-11-25 | Outpatient (CLI) | payer MEDICARE, MEDICAID ==
[~2017-11-25] MED LIST changes: +CATHETER FLUSH 10 ML SYR IV PRN; +ESTR42.52 TOP; +IOHEXOL 350 MG/ML 150 ML (OMNIPAQUE 350) VIAL IV ONE; +LEVO250T11 PO; +MORP-34 PO; +NS 100 ML (IVPB) BAG IV ONE; +TAMS0.4C98 PO
[2017-11-25 14:04] LABS: BUN/CREATININE RATIO 19; CALCIUM 9.1 MG/DL (8.5-10.1); CARBON DIOXIDE 23 MMOL/L (21-32); CHLORIDE 106 MMOL/L (98-107); GFR ESTIMATED > 60; GLUCOSE 100 MG/DL (70-105); POTASSIUM 4.1 MMOL/L (3.6-5.0); SODIUM 140 MMOL/L (135-145)
--- NOTE | 2017-11-25 16:43 | Diagnostic Imaging Report ---
INDICATION: Abdominal aortic aneurysm. TECHNIQUE: Multiple contiguous axial images were obtained through the abdomen and pelvis after the uneventful bolus administration of intravenous contrast. MIP reconstructions were performed. FINDINGS: There is cardiomegaly. The lung bases are clear. The liver is normal in size. There is a small hepatic cyst. There is no biliary ductal dilatation. Gallbladder is unremarkable. Spleen is normal. The pancreas and adrenal glands are unremarkable. There is some cortical scarring in both kidneys. There is a left renal cyst. The previously seen nonobstructing stone in the right kidney is no longer appreciated. There is a 3.9 cm infrarenal abdominal aortic aneurysm. This compares with the previous measurement of 3.8 cm. 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 Note is again made of what appears to be a left common iliac stenosis. There is a periumbilical hernia containing only omental fat. The previously seen free pelvic fluid is resolved. There is some mild bladder wall thickening. Evaluation of the pelvic structures is however somewhat limited due to beam hardening artifact from right hip replacement. There are degenerative changes in the spine. The common femoral arteries are patent. There is occlusion of the proximal right superficial femoral artery. This does reconstitute distally via some collaterals. Both popliteal arteries are patent. IMPRESSION: 3.9 cm infrarenal abdominal aortic aneurysm. This is increased by 1 mm since prior examination. 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 Probable stenosis of the left common iliac artery. Occlusion of the right superficial femoral artery which reconstitutes distally via collaterals. The previously seen nonobstructing stone in the right kidney is no longer identified. There is questionable bladder wall thickening. Recommend clinical correlation for cystitis. Periumbilical hernia containing omental fat. Hepatic and left renal cyst. Cardiomegaly. Degenerative changes in the spine. Dictated by: Dictated on workstation # [id number]
== END ==
LOC: RAD 13:20
PROVIDERS: ATTEND Nurse Practitioner Family
DX: I71.4 Abdominal aortic aneurysm, without rupture (principal); I70.201 Unspecified atherosclerosis of native arteries of extremities, right leg; I65.23 Occlusion and stenosis of bilateral carotid arteries; N28.1 Cyst of kidney, acquired; K42.9 Umbilical hernia without obstruction or gangrene; K76.89 Other specified diseases of liver
CPT/HCPCS: 36415; 75635; 80048

== ENCOUNTER 2017-11-26 17:12 | Observation (INO) | payer MEDICARE, MEDICAID ==
[~2017-11-26] VITALS: Ht 157.5 cm; Wt 78.0 kg
[~2017-11-26 17:12] MED LIST changes: -CATHETER FLUSH 10 ML SYR IV PRN; -IOHEXOL 350 MG/ML 150 ML (OMNIPAQUE 350) VIAL IV ONE; -LEVO250T11 PO; -MORP-34 PO; -NS 100 ML (IVPB) BAG IV ONE; -TAMS0.4C98 PO
[2017-11-26] MEDS ORDERED: NS IV 1000 ML 2,313.33 ML IV PRN (17:30)
--- NOTE | 2017-11-26 17:33 | ED General ---
General Chief Complaint: General Problems/Pain Stated Complaint: POST OP History of Present Illness Time Seen by Provider: 17:15 Initial Comments 81-year-old female presents for altered level of consciousness. She had suprapubic catheter placement surgery earlier today by Dr. Norwood, postoperatively she had extreme abdominal pain and was evaluated by Dr. Pittman. She had a CT of the abdomen and pelvis that showed no acute processes. She has a history of atrial fibrillation and has been on Eliquis, stopped it one week ago was instructed to resume it in one week if no bleeding at Catheter site. She denies any pain. Staff at [facility] report there was bleeding from the suprapubic catheter site and she was running a fever to 102. The op site dressing has saturated with bright red blood, it has not been reinforced, there is no active bleeding from the wound site. Crum are intact with good approximation of the wound. Urine is present in the suprapubic collection bag, pink in color. She also has a urethral catheter in place and has pink urine as well in the collection bag. Timing/Duration: 1 Hour Severity: Mild Associated Systoms: Denies Symptoms, No Chest Pain, No Cough, Fever/Chills, No Headaches, No Loss of Appetite, No Nausea/Vomiting, No Rash, No Seizure, No Shortness of Air, No Weakness Allergies and Home Medications Allergies Coded Allergies: Sulfa (Sulfonamide Antibiotics) (Verified Allergy, Unknown, 02/06/17) diphenhydramine HCl (Verified Allergy, Unknown, 05/14/16) hydrochlorothiazide (Unverified Allergy, Unknown, 05/14/16) varenicline tartrate (Verified Allergy, Unknown, 05/14/16) Home Medications Albuterol Sulfate 8.5 Gm Hfa.aer.ad, 1 PUFF IH Q4H PRN for SHORTNESS OF BREATH, (Reported) Atorvastatin Calcium 40 Mg Tablet, 40 MG PO DAILY, (Reported) Budesonide/Formoterol Fumarate 10.2 Gm Hfa.aer.ad, 2 PUFF IH BID, (Reported) Bupropion HCl 300 Mg Tab.er.24h, 300 MG PO HS, (Reported) Estradiol 42.5 Gm Cream.appl, 1 GM VG WEEK, (Reported) Estradiol 42.5 Gm Cream.appl, 1 GM VG Q74HR, (Reported) Furosemide 20 Mg Tablet, 20 MG PO Q48H, (Reported) Gabapentin 400 Mg Capsule, 400 MG PO TID, (Reported) Lorazepam 0.5 Mg Tablet, 0.5 MG PO Q8H PRN for ANXIETY, (Reported) Metformin HCl 500 Mg Tablet, 500 MG PO DAILY, (Reported) Metoprolol Tartrate 50 Mg Tablet, 50 MG PO BID, (Reported) Morphine Sulfate 30 Mg Cap.er.pel, 30 MG PO Q12H, (Reported) Ondansetron HCl 4 Mg Tablet, 4 MG PO Q6H PRN for NAUSEA/VOMITING, (Reported) Polyethylene Glycol 3350 17 Gm Powd.pack, 17 GM PO DAILY, (Reported) Potassium Chloride 20 Meq Tab.er.prt, 40 MEQ PO Q48H, (Reported) TAKES WITH FUROSEMIDE, take 2 (20MEQ)tabs Trazodone HCl 50 Mg Tablet, 50 MG PO HS, (Reported) Constitutional: no symptoms reported, see HPI Gastrointestinal: see HPI, other (bleeding from suprapubic catheter site) All Other Systems Reviewed Negative Unless Noted: Yes Past Eddsnuc-Mvzuaj-Zrzypy Hx Patient Social History Type Used: Cigarettes Former Smoker, Quit: Oct 15, 1988 Recent Hopitalizations: Yes Immunizations Up To Date Tetanus Booster (TDap): Unknown PED Vaccines UTD: No Date of Pneumonia Vaccine: Sep 05, 2014 Date of Influenza Vaccine: Aug 19, 2017 Seasonal Allergies Seasonal Allergies: No Surgeries Surgeries: Adenoidectomy, Appendectomy, Bladder Surgery, Cardiac, CABG, Gallbladder, Hysterectomy, Joint Replacement, Orthopedic, Tonsillectomy Respiratory Respiratory Disorders: Pneumonia, Chronic Bronchitis, COPD Cardiovascular Cardiac Disorders: Coronary Artery Disease, High Cholesterol, Hypertension Reproductive System Hx Reproductive Disorders: Yes Sexually Transmitted Disease: No Female Reproductive Disorders: Endometriosis GEOLOGIST History: Hysterectomy Genitourinary Genitourinary Disorders: UTI-Chronic Gastrointestinal Gastrointestinal Disorders: Chronic Constipation Musculoskeletal Musculoskeletal Disorders: Degenerate Disk Disease, Arthritis, Chronic Back Pain Endocrine Endocrine Disorders: Diabetes, Non-Insulin dep HEENT HEENT Disorders: Cataract Loss of Vision: Denies Hearing Impairment: Denies Psychosocial Behavioral Health Disorders: Anxiety, Depression Blood Transfusions Adverse Reaction to a Blood Tr: No Reviewed Nursing Assessment Reviewed/Agree w Nursing PMH: Yes Family Medical History Significant Family History: Heart Disease, Diabetes Family Medial History: Cancer 09 SISTER Cancer of colon Cataract 03 MOTHER, Onset:Unknown Family history: Allergy 03 FATHER, Onset:Unknown 03 MOTHER, Onset:Unknown Family history: Arthritis 03 FATHER, Onset:Unknown 03 MOTHER, Onset:Unknown 09 SISTER, Onset:Unknown Family history: Cardiovascular disease 03 FATHER, Onset:Unknown 03 MOTHER, Onset:Unknown 09 BROTHER, Onset:Unknown 09 SISTER, Onset:Unknown Family history: Diabetes mellitus 03 MOTHER, Onset:Unknown Family history: Gastrointestinal disease 03 FATHER, Onset:Unknown Family history: Hypertension 03 MOTHER, Onset:Unknown Family history: Osteoporosis 03 MOTHER, Onset:Unknown Hearing loss 03 FATHER, Onset:Unknown Heart disease 03 FATHER, Onset:Unknown 03 MOTHER, Onset:Unknown 09 BROTHER, Onset:Unknown Hypercholesterolemia 03 MOTHER, Onset:Unknown Malignant neoplasm of lung 09 SISTER, Onset:Unknown Myocardial infarction 09 BROTHER, Onset:Unknown Parkinson's disease Stroke 03 FATHER, Onset:Unknown Thyroid disease No Family History of: Abdominal aortic aneurysm [place]'s disease Alcoholism Aphasia Chest pain Congenital heart disease Congestive heart failure Cystic fibrosis Dementia Dysphagia Family history: Alzheimer's disease Family history: Asthma Family history: Breast disease Family history: Coronary thrombosis Family history: Glaucoma Family history: Thyroid disorder Headache Hereditary disease History of - anemia History of - disorder History of - respiratory disease History of drug abuse Human immunodeficiency virus (HIV) seropositivity Infertile Kidney disease Prostate cancer Psychotic disorder Seizure disorder Tuberculosis Visual impairment Physical Exam Vital Signs Vital Sign - Last 12Hours 11/26/17 11/26/17 17:12 18:40 Temp 102.6 Pulse 104 Resp 18 B/P (MAP) 136/78 (97) Pulse Ox 92 O2 Delivery Nasal Cannula O2 Flow Rate 2.00 Capillary Refill : General Appearance: No Apparent Distress, WD/WN Eyes: Bilateral Eye Normal Inspection, Bilateral Eye PERRL, Bilateral Eye EOMI HEENT: PERRL/EOMI, TMs Normal, Normal ENT Inspection, Pharynx Normal Neck: Full Range of Motion, Normal Inspection, Non Tender, Supple Respiratory: Chest Non Tender, Lungs Clear Cardiovascular: No Edema, No Murmur, Irregularly Irregular Gastrointestinal: Normal Bowel Sounds, Non Tender, Soft, Other (suprapubic catheter site, no active bleeding, sterile dressing replaced. Marj intact, wound well approximated. She has a urethral catheter in place also. ) Neurologic/Psychiatric: No Motor/Sensory Deficits, Normal Mood/Affect Focused Exam Evaluation Lactate Level Laboratory Tests 11/26/17 17:32: Lactic Acid Level 1.13 Lactic Acid Level Progress/Results/Core Measures Suspected Sepsis SIRS Temperature: Pulse: Respiratory Rate: Laboratory Tests 11/26/17 17:32: White Blood Count 15.7H Blood Pressure / Mean: Laboratory Tests 11/26/17 17:32: Lactic Acid Level 1.13 Laboratory Tests 11/26/17 17:32: Creatinine 0.78, INR Comment 1.1, Platelet Count 216, Total Bilirubin 0.7 Results/Orders Lab Results Laboratory Tests Test 11/26/17 17:32 11/26/17 17:50 Range/Units White Blood Count 15.7 H 4.3-11.0 10^3/uL Red Blood Count 4.40 4.35-5.85 10^6/uL Hemoglobin 13.5 11.5-16.0 G/DL Hematocrit 40 35-52 % Mean Corpuscular Volume 90 80-99 FL Mean Corpuscular Hemoglobin 31 25-34 PG Mean Corpuscular Hemoglobin Concent 34 32-36 G/DL Red Cell Distribution Width 14.3 10.0-14.5 % Platelet Count 216 130-400 10^3/uL Mean Platelet Volume 10.1 7.4-10.4 FL Neutrophils (%) (Auto) 88 H 42-75 % Lymphocytes (%) (Auto) 5 L 12-44 % Monocytes (%) (Auto) 7 0-12 % Eosinophils (%) (Auto) 0 0-10 % Basophils (%) (Auto) 0 0-10 % Neutrophils # (Auto) 13.9 H 1.8-7.8 X 10^3 Lymphocytes # (Auto) 0.8 L 1.0-4.0 X 10^3 Monocytes # (Auto) 1.1 H 0.0-1.0 X 10^3 Eosinophils # (Auto) 0.0 0.0-0.3 10^3/uL Basophils # (Auto) 0.0 0.0-0.1 10^3/uL Neutrophils % (Manual) 81 % Lymphocytes % (Manual) 1 % Monocytes % (Manual) 5 % Eosinophils % (Manual) 1 % Basophils % (Manual) 0 % Band Neutrophils 12 % Blood Morphology Comment NORMAL Prothrombin Time 14.5 12.2-14.7 SEC INR Comment 1.1 0.8-1.4 Activated Partial Thromboplast Time 30 24-35 SEC Sodium Level 136 135-145 MMOL/L Potassium Level 4.1 3.6-5.0 MMOL/L Chloride Level 100 98-107 MMOL/L Carbon Dioxide Level 27 21-32 MMOL/L Anion Gap 9 5-14 MMOL/L Blood Urea Nitrogen 10 7-18 MG/DL Creatinine 0.78 0.60-1.30 MG/DL Estimat Glomerular Filtration Rate > 60 BUN/Creatinine Ratio 13 Glucose Level 108 H 70-105 MG/DL Lactic Acid Level 1.13 0.50-2.00 MMOL/L Calcium Level 9.0 8.5-10.1 MG/DL Total Bilirubin 0.7 0.1-1.0 MG/DL Aspartate Amino Transf (AST/SGOT) 16 5-34 U/L Alanine Aminotransferase (ALT/SGPT) 17 0-55 U/L Alkaline Phosphatase 68 40-136 U/L Troponin I < 0.30 <0.30 NG/ML C-Reactive Protein High Sensitivity 0.61 H 0.00-0.50 MG/DL Total Protein 6.6 6.4-8.2 GM/DL Albumin 3.7 3.2-4.5 GM/DL Urine Color GABRIELA H Urine Clarity SLIGHTLY CLOUDY Urine pH 8 5-9 Urine Specific [place] 1.010 L 1.016-1.022 Urine Protein 2+ H NEGATIVE Urine Glucose (UA) NEGATIVE NEGATIVE Urine Ketones NEGATIVE NEGATIVE Urine Nitrite NEGATIVE NEGATIVE Urine Bilirubin NEGATIVE NEGATIVE Urine Urobilinogen NORMAL NORMAL MG/DL Urine Leukocyte Esterase 3+ H NEGATIVE Urine RBC (Auto) 5+ H NEGATIVE Urine RBC >100 H /HPF Urine WBC 10-25 H /HPF Urine Crystals NONE /LPF Urine Bacteria TRACE /HPF Urine Casts NONE /LPF Urine Mucus NEGATIVE /LPF Urine Culture Indicated YES Micro Results Microbiology 11/26/17 Influenza Types A,B Antigen ([facility]) - Final, Complete My Orders Orders - VIRIDIANA ALVARES Ua Culture If Indicated (11/26/17 17:27) Influenza A And B Antigens (11/26/17 17:27) Cbc With Automated Diff (11/26/17 17:27) Comprehensive Metabolic Panel (11/26/17 17:27) Lactic Acid Analyzer (11/26/17 17:27) Blood Culture (11/26/17 17:27) Protime With Inr (11/26/17 17:27) Partial Thromboplastin Time (11/26/17 17:27) Chest 1 View, Ap/Pa Only (11/26/17 17:27) O2 (11/26/17 17:27) Saline Lock/Iv-Start (11/26/17 17:27) Saline Lock/Iv-Start (11/26/17 17:27) Ekg Tracing (11/26/17 17:27) Troponin I (11/26/17 17:27) Ns Iv 1000 Ml (Sodium Chloride 0.9%) (11/26/17 17:30) Vital Signs Adult Sepsis Patie Q1H (11/26/17 17:27) Hs C Reactive Protein (11/26/17 17:27) Manual Differential (11/26/17 17:32) Acetaminophen Tablet (Tylenol Tablet) (11/26/17 18:02) Urine Culture (11/26/17 17:50) Levofloxacin 750 Mg/150 Ml Iv (Levaquin (11/26/17 19:29) Ct Abdomen/Pelvis Wo (11/26/17 19:31) Medications Given in ED Current Medications Medications Dose Ordered Sig/Kervin Route Start Time Stop Time Status Last Admin Dose Admin Acetaminophen 500 mg STK-MED ONCE .ROUTE 11/26/17 18:02 11/26/17 18:06 DC 11/26/17 18:15 500 MG Sodium Chloride 2,313.33 ml @ 0 mls/hr PRN PRN IV 11/26/17 17:30 11/26/17 21:36 DC 11/26/17 18:15 1,000 MLS/HR Vital Signs/I&O Vital Sign - Last 12Hours 11/26/17 11/26/17 11/26/17 11/26/17 17:12 18:40 21:15 21:15 Temp 102.6 101.5 99.6 99.6 Pulse 104 116 103 103 Resp 18 18 20 20 B/P (MAP) 136/78 (97) 153/77 (102) 153/77 (102) Pulse Ox 92 92 93 93 O2 Delivery Nasal Cannula Nasal Cannula Nasal Cannula Nasal Cannula O2 Flow Rate 2.00 1.00 1.00 11/26/17 22:00 Temp 98.2 Capillary Refill : Progress Note : Time: 17:15 Progress Note Initial evaluation completed, will start sepsis workup based on fever, altered mental status and recent surgery. Reviewed notes from operative state today. Consult by Dr. Pittman and CT scan report results reviewed. 1744 discussed patient with . He reports that he would be concerned with urosepsis, based on her urine from the time of surgery. Recommended repeating the CT study. Influenza screen negative. 1800 Tylenol 650 mg by mouth for fever. 1830 labs essentially normal. WBC 15.7, lactic acid 1.13, CRP 0.61, UA showed 2 + protein, 3+ leukocyte esterase, 5+ RBCs and 10-25 to be days. 1840 temperature 100.4. 0 patient and her son are visiting, patient's alert and oriented. Answering all questions appropriately. 1929 patient continuing to clean of mild to moderate abdominal pain. Will do a CT study of the abdomen. Levaquin [address] study shows no acute abnormalities and no postoperative changes. Essentially the same as CT study done earlier this afternoon. [address] Belkys Santacruz, agreed to accept patient for observation admission on [facility] telemetry bed. [address] Norwood completed by phone. Recommended coverage with Rocephin in addition to the Levaquin and Diflucan for yeast coverage. 2049 admission plans discussed with the patient. She agreed with this plan of care. ECG Initial ECG Impression Date: Nov 26, 2017 Initial ECG Impression Time: 17:40 Initial ECG Rate: 110 Initial ECG Rhythm: A Fib/Flutter Initial ECG Intervals QRS 3100, QT 324, QTc 439, [place] QRS 86, T -90. Initial ECG Impression: Atrial Fibrillation Initial ECG Comparisson: Unchanged Comment Reviewed with Dr. Littlejohn, concurred with the interpretation Diagnostic Imaging Diagonstic Imaging: Xray Plain Films/CT/US/NM/MRI: chest Comments NAME: JULES REYES [facility] REC#: [id number] PT STATUS: REG ER : 1937 PHYSICIAN: VIRIDIANA ALVARES ADMIT DATE: 11/26/17/ER Draft Date of Exam:11/26/17 CHEST 1 VIEW, AP/PA ONLY INDICATION: Abnormal bleeding from suprapubic catheter placement and cardiomegaly 1753 hrs. Portable upright AP view of the chest is obtained with comparison made to study of 05/14/2016. There is continued generalized cardiomegaly. There has been mild increase in pulmonary venous congestion. No consolidation is identified. There is no evidence of pneumothorax or definite pleural fluid. IMPRESSION: Increasing pulmonary venous congestion with persistent cardiomegaly. No other significant change identified. Dictated on workstation # [id number] Dict: 11/26/17 180 Trans: 11/26/17 180 JEFFREY [id number] Interpreted by: SOCRATES ARREDONDO MD Electronically signed by: Sylviagonsjonathan Imaging: CT Plain Films/CT/US/NM/MRI: abdomen, pelvis Comments NAME: JULES REYES [facility] REC#: [id number] PT STATUS: REG ER : 1937 PHYSICIAN: VIRIDIANA ALVARES ADMIT DATE: 11/26/17/ER Draft Date of Exam:11/26/17 CT ABDOMEN/PELVIS WO PROCEDURE: CT abdomen and pelvis without contrast. TECHNIQUE: Multiple contiguous axial images were obtained through the abdomen and pelvis without the use of intravenous contrast. INDICATION: Recent suprapubic catheter placement. Bleeding around the placement site. Comparison is made with the CT examination from earlier in the same day. FINDINGS: Compared to the prior examination, there has been no evidence of interval change in the positioning of the retention balloons associated with the patient's suprapubic catheter and Askew catheter. These do appear to both be within the lumen of the urinary bladder. Gas and stranding within the subcutaneous soft tissues at the suprapubic catheter insertion site remains present. There has, however, been an interval increase in size of the left rectus abdominal muscle suggesting some ongoing intramuscular bleeding. There is no evidence of free fluid or blood within the peritoneal cavity. The bowel remains nonobstructed. There is a moderate stool within the colon. There is no abnormal bowel thickening. There is no small bowel dilation. There is no free air or abscess. There is an unchanged umbilical hernia. The liver demonstrates no focal intrahepatic abnormality. There is no biliary dilatation. Spleen unchanged. Pancreas atrophic. There is no adrenal mass. The kidneys are nonobstructed. Kidneys do continue to excrete some contrast from the prior contrast administration. 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 There are advanced degenerative features present within the spine. IMPRESSION: 1. Retention balloons are again demonstrated within the urinary bladder related to a suprapubic catheter as well as a Askew catheter. Gas within the anterior abdominal wall with subcutaneous fat stranding is not significantly changed but there has been an interval increase in size of the patient's left rectus abdominal muscle which suggests some intramuscular bleeding. 2. The CT appearance of the abdomen and pelvis otherwise demonstrates no interval change compared to today's earlier exam. Dictated on workstation # [id number] Dict: 11/26/171952 Trans: 11/26/172011 JEFFREY [id number] Interpreted by: SHAHAB BEE MD Electronically signed by: Reviewed: Reviewed by Me Departure Impression Impression: Primary Impression: UTI (urinary tract infection) Qualified Codes: N30.01 - Acute cystitis with hematuria Disposition: ADMITTED INPATIENT Condition: Stable Admissions Decision to Admit Reason: Admit from ER (General) Decision to Admit/Date: Nov 26, 2017 Time/Decision to Admit Time: 20:30 Departure-Patient Inst. Referrals: SHANIQUE VEGA MD (PCP/Family) Primary Care Physician Copy Copies To 1: MICHELLE PITTMAN DO; LUL NORWOOD MD Copies To 2: SHANIQUE VEGA MD, AMY ARNP Nov 26, 2017 17:33
[2017-11-26 17:42] LABS: BASOPHILS % (AUTO) 0 % (0-10); EOSINOPHILS % (AUTO) 0 % (0-10); HEMATOCRIT 40 % (35-52); HEMOGLOBIN 13.5 G/DL (11.5-16.0); LYMPHOCYTES # (AUTO) 0.8 X 10^3 (1.0-4.0); LYMPHOCYTES % (AUTO) 5 % (12-44); MEAN CORPUSCULAR HEMOGLOBIN 31 PG (25-34); MEAN CORPUSCULAR HGB CONC 34 G/DL (32-36); MEAN CORPUSCULAR VOLUME 90 FL (80-99); MEAN PLATELET VOLUME 10.1 FL (7.4-10.4); MONOCYTES # (AUTO) 1.1 X 10^3 (0.0-1.0); MONOCYTES % (AUTO) 7 % (0-12); NEUTROPHILS # (AUTO) 13.9 X 10^3 (1.8-7.8); NEUTROPHILS % (AUTO) 88 % (42-75); PLATELET COUNT 216 10^3/uL (130-400); RED CELL DISTRIBUTION WIDTH 14.3 % (10.0-14.5); WHITE BLOOD COUNT 15.7 10^3/uL (4.3-11.0)
[2017-11-26 17:51] LABS: INR 1.1 (0.8-1.4); PROTHROMBIN TIME PATIENT 14.5 SEC (12.2-14.7)
[2017-11-26 18:02] LABS: ALANINE AMINOTRANSFERASE 17 U/L (0-55); ALBUMIN 3.7 GM/DL (3.2-4.5); ALKALINE PHOSPHATASE 68 U/L (40-136); BILIRUBIN,TOTAL 0.7 MG/DL (0.1-1.0); BUN/CREATININE RATIO 13; CARBON DIOXIDE 27 MMOL/L (21-32); CHLORIDE 100 MMOL/L (98-107); CREATININE SERUM 0.78 MG/DL (0.60-1.30); GFR ESTIMATED > 60; GLUCOSE 108 MG/DL (70-105); POTASSIUM 4.1 MMOL/L (3.6-5.0); SODIUM 136 MMOL/L (135-145); TOTAL PROTEIN 6.6 GM/DL (6.4-8.2)
[2017-11-26 18:02] LABS: BILIRUBIN,URINE NEGATIVE (NEGATIVE); CLARITY,URINE SLIGHTLY CLOUDY; COLOR,URINE AMBER; GLUCOSE, URINE (UA) NEGATIVE (NEGATIVE); KETONES,URINE NEGATIVE (NEGATIVE); LEUKOCYTE ESTERASE ,URINE 3+ (NEGATIVE); NITRITE,URINE NEGATIVE (NEGATIVE); PH,URINE 8 (5-9); PROTEIN,URINE 2+ (NEGATIVE); UROBILINOGEN,URINE NORMAL (NORMAL)
[2017-11-26] MEDS ORDERED: ACETAMINOPHEN 500 MG TAB (TYLENOL) ONE (18:02)
--- NOTE | 2017-11-26 18:05 | Diagnostic Imaging Report ---
INDICATION: Abnormal bleeding from suprapubic catheter placement and cardiomegaly 1753 hrs. Portable upright AP view of the chest is obtained with comparison made to study of 05/14/2016. There is continued generalized cardiomegaly. There has been mild increase in pulmonary venous congestion. No consolidation is identified. There is no evidence of pneumothorax or definite pleural fluid. IMPRESSION: Increasing pulmonary venous congestion with persistent cardiomegaly. No other significant change identified. Dictated by: Dictated on workstation # [id number]
[2017-11-26 18:09] LABS: BACTERIA,URINE TRACE /HPF; RBC,URINE >100 /HPF
[2017-11-26 18:16] LABS: BAND NEUTROPHILS 12 %; BASOPHILS % (MANUAL) 0 %; EOSINOPHILS % (MANUAL) 1 %; LYMPHOCYTES % (MANUAL) 1 %; MONOCYTES % (MANUAL) 5 %; NEUTROPHILS % (MANUAL) 81 %
[2017-11-26 18:17] LABS: RBC MORPH NORMAL
[2017-11-26 18:40] VITALS: BP 136/78
[2017-11-26] MEDS ORDERED: LEVOFLOXACIN 750 MG/150 ML IV 150 ML IV STA (19:29)
--- NOTE | 2017-11-26 20:13 | Diagnostic Imaging Report ---
PROCEDURE: CT abdomen and pelvis without contrast. TECHNIQUE: Multiple contiguous axial images were obtained through the abdomen and pelvis without the use of intravenous contrast. INDICATION: Recent suprapubic catheter placement. Bleeding around the placement site. Comparison is made with the CT examination from earlier in the same day. FINDINGS: Compared to the prior examination, there has been no evidence of interval change in the positioning of the retention balloons associated with the patient's suprapubic catheter and Askew catheter. These do appear to both be within the lumen of the urinary bladder. Gas and stranding within the subcutaneous soft tissues at the suprapubic catheter insertion site remains present. There has, however, been an interval increase in size of the left rectus abdominal muscle suggesting some ongoing intramuscular bleeding. There is no evidence of free fluid or blood within the peritoneal cavity. The bowel remains nonobstructed. There is a moderate stool within the colon. There is no abnormal bowel thickening. There is no small bowel dilation. There is no free air or abscess. There is an unchanged umbilical hernia. The liver demonstrates no focal intrahepatic abnormality. There is no biliary dilatation. Spleen unchanged. Pancreas atrophic. There is no adrenal mass. The kidneys are nonobstructed. Kidneys do continue to excrete some contrast from the prior contrast administration. 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 There are advanced degenerative features present within the spine. IMPRESSION: 1. Retention balloons are again demonstrated within the urinary bladder related to a suprapubic catheter as well as a Askew catheter. Gas within the anterior abdominal wall with subcutaneous fat stranding is not significantly changed but there has been an interval increase in size of the patient's left rectus abdominal muscle which suggests some intramuscular bleeding. 2. The CT appearance of the abdomen and pelvis otherwise demonstrates no interval change compared to today's earlier exam. Dictated by: Dictated on workstation # [id number]
[2017-11-26 21:15] VITALS: BP 153/77
[2017-11-26] MEDS ORDERED: fluCOnazole (DIFLUCAN) 100 MG TAB PO SCH (21:35)
[2017-11-26] MEDS ORDERED: CEFTRIAXONE IV SCH (21:45)
[2017-11-26] MEDS ORDERED: NS IV SCH (21:45)
[2017-11-26] MEDS ORDERED: CATHETER FLUSH 10 ML SYR IV PRN (21:45)
[2017-11-26] MEDS ORDERED: ACETAMINOPHEN 325 MG TABLET/CAPLET (TYLENOL) PO PRN (21:45)
[2017-11-26] MEDS ORDERED: ONDANSETRON 4 MG/2 ML (SDV) Z0FRAN IV PRN (21:45)
[2017-11-26] MEDS: NS IV 1000 ML 1,000 ML IV SCH (21:57)
[2017-11-26] MEDS: CATHETER FLUSH 10 ML SYR IV SCH (22:06)
[2017-11-26] MEDS ORDERED: morphine INJ 4 MG/ML 1 ML (VIAL/SYRINGE) IVP PRN (22:15)
[2017-11-26] MEDS: cefTRIAXone INJECTION 1,000 MG in NS (IVPB) 50 ML IV SCH ×2 (22:30→23:10)
[2017-11-27] VITALS: BP 128/68
[2017-11-27 04:00] VITALS: BP 137/75
[2017-11-27] MEDS: CATHETER FLUSH 10 ML SYR IV SCH (05:38)
[2017-11-27 07:08] LABS: BASOPHILS % (AUTO) 0 % (0-10); EOSINOPHILS % (AUTO) 0 % (0-10); HEMATOCRIT 37 % (35-52); HEMOGLOBIN 12.3 G/DL (11.5-16.0); LYMPHOCYTES # (AUTO) 1.1 X 10^3 (1.0-4.0); LYMPHOCYTES % (AUTO) 5 % (12-44); MEAN CORPUSCULAR HEMOGLOBIN 30 PG (25-34); MEAN CORPUSCULAR HGB CONC 34 G/DL (32-36); MEAN CORPUSCULAR VOLUME 90 FL (80-99); MEAN PLATELET VOLUME 10.3 FL (7.4-10.4); MONOCYTES # (AUTO) 0.9 X 10^3 (0.0-1.0); MONOCYTES % (AUTO) 4 % (0-12); NEUTROPHILS # (AUTO) 18.2 X 10^3 (1.8-7.8); NEUTROPHILS % (AUTO) 90 % (42-75); PLATELET COUNT 195 10^3/uL (130-400); RED BLOOD COUNT 4.08 10^6/uL (4.35-5.85); RED CELL DISTRIBUTION WIDTH 14.3 % (10.0-14.5); WHITE BLOOD COUNT 20.1 10^3/uL (4.3-11.0)
[2017-11-27 07:31] LABS: ALANINE AMINOTRANSFERASE 16 U/L (0-55); ALBUMIN 3.3 GM/DL (3.2-4.5); ALKALINE PHOSPHATASE 69 U/L (40-136); BUN/CREATININE RATIO 11; CALCIUM 8.7 MG/DL (8.5-10.1); CARBON DIOXIDE 20 MMOL/L (21-32); CHLORIDE 107 MMOL/L (98-107); CREATININE SERUM 0.72 MG/DL (0.60-1.30); GFR ESTIMATED > 60; GLUCOSE 126 MG/DL (70-105); POTASSIUM 3.6 MMOL/L (3.6-5.0); SODIUM 138 MMOL/L (135-145); TOTAL PROTEIN 6.3 GM/DL (6.4-8.2)
[2017-11-27 07:43] LABS: NEUTROPHILS % (MANUAL) 75 %
[2017-11-27 07:44] LABS: BAND NEUTROPHILS 18 %; BASOPHILS % (MANUAL) 0 %; EOSINOPHILS % (MANUAL) 0 %; LYMPHOCYTES % (MANUAL) 5 %; MONOCYTES % (MANUAL) 2 %; RBC MORPH NORMAL
[2017-11-27 07:56] VITALS: BP 128/68
[2017-11-27] MEDS ORDERED: DOCUSATE SODIUM 100 MG (COLACE) CAP PO SCH (09:00)
[2017-11-27] MEDS ORDERED: fluCOnazole (DIFLUCAN) 100 MG TAB PO SCH (09:00)
[2017-11-27] MEDS ORDERED: DOCUSATE CALCIUM 240 MG (SURFAK) CAP PO SCH (09:00)
[2017-11-27] MEDS: NS IV 1000 ML 1,000 ML IV SCH (09:22)
[2017-11-27] MEDS ORDERED: TAMS0.4C98 PO (10:51)
[2017-11-27] MEDS ORDERED: APIX5TAB PO (10:51)
[2017-11-27] MEDS ORDERED: ASPI-999 PO (10:51)
[2017-11-27] MEDS ORDERED: MORP-34 PO (10:51)
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
[2017-11-27] MEDS ORDERED: meTOprolol TARTRATE 25 MG (LOPRESSOR) TABLET PO NR (11:29)
--- NOTE | 2017-11-27 11:34 | Discharge Summary ---
Diagnosis/Chief Complaint Date of Admission Nov 26, 2017 at 20:47 Date of Discharge Discharge Summary-Simple/Stand Discharge Physical Examination Allergies: Coded Allergies: Sulfa (Sulfonamide Antibiotics) (Verified Allergy, Unknown, 02/06/17) diphenhydramine HCl (Verified Allergy, Unknown, 05/14/16) hydrochlorothiazide (Unverified Allergy, Unknown, 05/14/16) varenicline tartrate (Verified Allergy, Unknown, 05/14/16) Vitals & I&Os Vital Sign - Last 12Hours Date Time Temp Pulse Resp B/P (MAP) Pulse Ox O2 Delivery O2 Flow Rate FiO2 11/27/17 08:00 95 Room Air 2.00 11/27/17 07:56 98.7 79 24 128/68 (88) Intake and Output 11/27/17 00:00 Intake Total 2300 ml Output Total 1450 ml Balance 850 ml Hospital Course See final discharge diagnosis. Discharge Instructions to patient/family Please see electronic discharge instructions given to patient. Discharge Medications Reviewed and agree with Discharge Medication list on patient's Discharge Instruction sheet Clinical Quality Measures DVT/VTE Risk/Contraindication: Risk Factor Score Per Nursin RFS Level Per Nursing on Admit: 4+=Very High PRUDENCE CHAVEZ MD Nov 27, 2017 11:34
--- OUTSIDE RECORDS SUMMARY | 2017-11-27 11:38 | XMS REPORT | Encounter Summary ---
Author Author [facility] Organization [facility] Address Unknown Phone Unavailable Care Team Providers [employer] Name Role Phone PCP Unavailable Reason for Visit * Reason Comments Urinary Incontinence * Outpatient Surgery (Routine) Status Reason Specialty Diagnoses / Referred By Referred To Procedures Contact Contact No Auth Needed Urology Diagnoses Lonnie Carlisle Urology Mixed MD Clarissa 2ND FLOOR POD A incontinence [address] MED OFFICE BLDG infection, site [address] [place] [address] urd/ cysto- [id number] Phone: david P [phone] rocedures Fax: [place] [phone] CYSTOURETHROSCOP Y HI EMG STDS ANAL/URTL SPHNCTR OTH/THN NDL HI VOID PRESSURE STUDIES INTRAABDOMINAL HI COMPLEX CYSTOMETROGRAM VOIDING PRESSURE STUDIES HI COMPLEX UROFLOMETRY URODYNAMICS Encounter Details Date Type Department Care Team Description 09/19/2017 Procedure visit [facility] Clarissa Carlisle MD Mixed incontinence urge Physicians - Urology [address] and stress (male)(female) 2ND FLOOR POD A [address] (Primary Dx) [address] [place] [address] OFFICE BLDG [phone] [place] [address] Social History Tobacco Use Types Packs/Day Years Used Date Never Smoker Smokeless Tobacco: Never Used Alcohol Use Drinks/Week oz/Week Comments No 0 Standard 0.0 drinks or equivalent Sex Assigned at Date Recorded Not on file as of this encounter Last Filed Vital Signs Vital Sign Reading Time Taken Blood Pressure 152/85 09/19/2017 10:16 AM CDT Pulse 101 09/19/2017 10:16 AM CDT Temperature - - Respiratory Rate - - Oxygen Saturation - - Inhaled Oxygen - - Concentration Weight 74.4 kg (164 lb) 09/19/2017 10:16 AM CDT Height 157.5 cm (5' 2.01") 09/19/2017 10:16 AM CDT Body Mass Index 29.99 09/19/2017 10:16 AM CDT in this encounter Progress Notes * Clarissa Carlisle MD - 09/19/2017 10:30 AM CDT Formatting of this note may be different from the original. Subjective: History of Present Illness Sanjuanita Barnes is a 81 y.o. female. Please see other note with same date for full H&P, UDS results and plan. Review of Systems Objective: albuterol (PROAIR HFA) 90 mcg/actuation inhaler Inhale 2 Puffs by mouth into the lungs every 6 hours as needed for Wheezing or Shortness of Breath. Shake well before use. aspirin EC 325 mg tablet Take 325 mg by mouth daily. Take with food. atorvastatin (LIPITOR) 40 mg tablet Take 40 mg by mouth daily. BUDESONIDE/FORMOTEROL FUMARATE (SYMBICORT IN) Inhale by mouth into the lungs. ciprofloxacin (CIPRO) 500 mg tablet Take 1 tablet by mouth twice daily. Begin taking on 09/17/2017 in preparation for procedure on 09/19/2017. estradiol (ESTRACE) 0.01 % (0.1 mg/g) vaginal cream Insert or Apply to vaginal area every 7 days. Please apply in vagina three nights per week prior to bedtime gabapentin (NEURONTIN) 400 mg capsule Take 400 mg by mouth every 8 hours. metoprolol tartrate (LOPRESSOR) 25 mg tablet Take 25 mg by mouth twice daily. morphine IR (MS-IR) 30 mg tablet Take 30 mg by mouth every 4 hours as needed for Pain potassium citrate(+) (UROCIT-K) 10 mEq (1,080 mg) tablet Take 20 mEq by mouth twice daily. Take with food. traZODone (DESYREL) 50 mg tablet Take 50 mg by mouth at bedtime as needed for Sleep. Vitals: 09/19/17 1016 BP: 152/85 Pulse: 101 Weight: 74.4 kg (164 lb) Height: 157.5 cm (62.01") Body mass index is 29.99 kg/(m^2). Physical Exam Assessment and Plan: in this encounter Plan of Treatment Not on fileas of this encounter Procedures Procedure Name Priority Date/Time Associated Diagnosis Comments URODYNAMIC STUDIES Routine 09/19/2017 Mixed incontinence urge Results for this 12:00 AM CDT and stress (male)(female) procedure are in the results section. in this encounter Results * URODYNAMIC STUDIES (09/19/2017) Specimen Performing Laboratory IN CLINIC * POC URINE DIPSTICK MANUAL READ (09/19/2017) Component Value Ref Range Urine Glucose POC neg Urine Bilirubin POC neg Urine Ketone POC neg Urine Specific [place] 1.020 POC Urine Blood POC neg Urine PH POC 5.0 Urine Protein POC neg Urine Urobilinogen POC neg Urine Nitrite POC neg Urine Leukocytes POC neg Color,UA yellow Turbidity,UA clear Specimen Performing Laboratory Urine IN CLINIC in this encounter Visit Diagnoses Diagnosis Mixed 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 in this encounter
--- OUTSIDE RECORDS SUMMARY | 2017-11-27 11:38 | XMS REPORT | Encounter Summary ---
Author Author [facility] Organization [facility] Address Unknown Phone Unavailable Care Team Providers Care Airframe Technician Name Role Phone PCP Unavailable Reason for Visit * Reason Comments Urinary Retention * Outpatient Surgery (Routine) Status Reason Specialty Diagnoses / Referred By Referred To Procedures Contact Contact No Auth Needed Urology Diagnoses Lonnie Carlisle Urology Mixed MD Clarissa 2ND FLOOR POD A incontinence [address] MED OFFICE BLDG infection, site [address] [place], [place] [address] urd/ cysto- [id number] Phone: david P [phone] rocedures Fax: [place] [phone] CYSTOURETHROSCOP Y [place] EMG STDS ANAL/URTL SPHNCTR OTH/THN NDL [place] VOID PRESSURE STUDIES INTRAABDOMINAL [place] COMPLEX CYSTOMETROGRAM VOIDING PRESSURE STUDIES [place] COMPLEX UROFLOMETRY PROCEDURE - 30 Encounter Details Date Type Department Care Team Description 09/19/2017 Procedure visit [facility] Clarissa Carlisle MD Mixed stress and urge Physicians - Urology [address] urinary incontinence 2ND FLOOR POD A [address] (Primary Dx) [address] [place] [address] OFFICE BLDG [phone] [place] [address] Social History Tobacco Use Types Packs/Day Years Used Date Never Smoker Smokeless Tobacco: Never Used Alcohol Use Drinks/Week oz/Week Comments No 0 Standard 0.0 drinks or equivalent Sex Assigned at Date Recorded Not on file as of this encounter Last Filed Vital Signs Vital Sign Reading Time Taken Blood Pressure 139/62 09/19/2017 12:53 PM CDT Pulse 81 09/19/2017 12:53 PM CDT Temperature - - Respiratory Rate - - Oxygen Saturation - - Inhaled Oxygen - - Concentration Weight 74.4 kg (164 lb) 09/19/2017 12:53 PM CDT Height 157.5 cm (5' 2") 09/19/2017 12:53 PM CDT Body Mass Index 30 09/19/2017 12:53 PM CDT in this encounter Instructions * Patient Instructions - Lou Abda LPN - 09/19/2017 1:00 PM CDT [facility] Physicians - Urology Pre-Operative Instructions Surgical Procedure: Suprapubic catheter Date of Surgery: 10/04/2017 Arrival Time at the Admission Office (Main Lobby): tbd To ensure that your surgery can proceed without delay, you will be contacted by a phone triage nurse from the Preoperative Assessment Clinic (PAC) to complete this process. Please review the information given to you by your surgeon. You will be called by the surgery staff with your day of surgery arrival time between 2:30 - 4:30 PM the business day prior to surgery. If you have not heard from them after 4:30 PM, please call to confirm your arrival time. Pre-Operative Assessment and Instructions: Once you speak to the nurse or are seen in the Pre-Operative Assessment Clinic, you will be given medication instructions. However, if surgery is within 2 weeks , please read and follow the medication instructions below to prepare for surgery before you speak with the phone triage nurse: 14 days prior to surgery: ? Contact your doctor who prescribes any of the following to develop a plan for surgery: o Blood thinners such as aspirin, Aggrenox, Brilinta, Effient, Eliquis, enoxaparin (Lovenox), clopidogrel (Plavix), cilostazol, pentoxifylline (Trental) , Pradaxa, Savaysa, ticlopidine, Xarelto, and warfarin (Coumadin) o Immunosuppresants such as methotrexate, azathioprine, sulfasalazine, everolimus, sirolimus, Humira, Remicade, Enbrel, Simponi, Orencia, Cimzia, Actemra, and Xeljanz o Chemotherapy ? Stop most vitamins, herbals, and supplements including (but not limited to): o Alpha lipoic acid, black cohosh, CoQ10, echinacea, eye vitamins, fish oil, flaxseed oil, garlic, gingko biloba, ginseng, glucosamine/chondroitin, kava, Lovaza, lutein, lysine, multivitamin, red yeast rice, ALCON-e, saw palmetto, [place] wort, turmeric, valerian root, Vascepa, Vitamin A, Vitamin B complex, Vitamin C, Vitamin E ? You DO NOT need to stop: iron, magnesium, potassium 7 days prior to surgery: ? Stop anti-inflammatory medications such as ibuprofen (Advil, Motrin), naproxen (Aleve), [place], Excedrin, Midol, celecoxib (Celebrex), diclofenac (Voltaren), diflunisal, etodolac, flurbiprofen, indomethacin, ketoprofen, ketorolac, meloxicam, nabumetone, and piroxicam Do not drink alcohol within 24 hours of surgery. Please do not eat or drink anything after midnight. No gum, mints, hard candy, snacks, coffee, etc or chewing tobacco allowed after midnight before surgery. You may brush your teeth but be sure to rinse and spit. Please shower with an over the counter antibacterial soap the evening before or the morning of surgery. If your surgery is scheduled as an outpatient, you must arrange to have someone drive you home and have someone with you 24 hours after anesthesia. If you have any questions, please contact your provider's office at . For emergencies during evenings, nights, weekends, and holidays, contact [facility] single pointed operator and request they contact the on-call Urology Resident at [phone]. in this encounter Progress Notes * Clarissa Carlisle MD - 09/19/2017 1:00 PM CDT Formatting of this note may be different from the original. Subjective: History of Present Illness Sanjuanita Barnes is a 81 y.o. female. with hx of COPD, DMII, longstanding hx of JOE (UUI>MAXWELL), OAB, ISD, and urinary retention who is s/p PVS (Solyx) by Dr. Andrews on 11/27/16 and macroplastique injection 02/12/17 who presents for further evaluation of her persistent JOE. Prior to the surgeries, patient was having JOE (UUI>MAXWELL). She trailed Mirabegron , Toviaz without success. Currently, patient endorses JOE (UUI>MAXWELL) as her most bothersome complaint. Usually uses 5-7 ppd. She also endorses urgency, frequency, dysuria, slow stream , feelings of incomplete emptying, and positional voiding. She endorses constipation. She presented today for UDS and cysto. UDS with small capacity, retention, DO throughout filling until end; hypotonic bladder, no stress leak. Cystoscopy was unremarkable. Review of Systems Objective: albuterol (PROAIR HFA) [...] bedtime as needed for Sleep. Vitals: 09/19/17 1253 BP: 139/62 Pulse: 81 Weight: 74.4 kg (164 lb) Height: 157.5 cm (62") Body mass index is 30 kg/(m^2). Physical Exam Assessment and Plan: Problem Mixed Stress and Urge Urinary Incontinence Longstanding hx of JOE (UUI>MAXWELL), OAB, ISD, urinary retention who is s/p PVS ( Solyx) by Dr. Andrews on 11/27/16; Macroplastique injection 02/12/17. Trailed Liz Amos without success. 03/20/17 - FOUNDRY PATTERNMAKER eval with Dr. Carlisle. Still with JOE (UUI>MAXWELL). Exam with moderate vulvovaginal atrophy, + leak with valsalva. PVR 150 mL UDS (09/19/17) with small capacity, retention, DO throughout filling until end; hypotonic bladder, no stress leak. Cystoscopy was unremarkable. Mixed stress and urge urinary incontinence - OR for SPT 10/04/17 - anticholinergic to be added once SPT placed in this encounter Miscellaneous Notes * Assessment & Plan Note - Clarissa Carlisle MD - 09/22/2017 11:05 PM RETAIL SERVICE REPRESENTATIVE Associated Problem(s): Mixed stress and urge urinary incontinence - OR for SPT 10/04/17 - anticholinergic to be added once SPT placed in this encounter Plan of Treatment Name Priority Associated Diagnoses Order Schedule CYSTOSCOPY Routine Mixed stress and urge Ordered: 09/19/2017 urinary incontinence as of this encounter Visit Diagnoses Diagnosis Mixed stress and urge urinary incontinence - Primary Mixed incontinence urge and stress (male)(female) in this encounter
--- OUTSIDE RECORDS SUMMARY | 2017-11-27 11:38 | XMS REPORT | Clinical Summary ---
Author Author [facility] Organization [facility] Address Unknown Phone Unavailable Care Team Providers Care Continuing Education Dean Name Role Phone PCP Unavailable Source Comments Some departments are not documenting in the electronic medical record. If you do not see the information that you expected, contact Release of Information in the Health Information Management department at [phone] for further assistance in locating additional records.[facility] Allergies Active Allergy Reactions Severity Noted Date Comments Sulfamethoxazole-Trimetho UNKNOWN Low 09/27/2017 Per MAR prim Diphenhydramine-Zinc UNKNOWN Low 09/27/2017 Per MAR Acetate Hydrochlorothiazide UNKNOWN Low 09/27/2017 Per MAR Sulfa (Sulfonamide ITCHING Low 03/20/2017 Antibiotics) Current Medications Prescription Sig. Disp. Refills Start End Date Status Date albuterol (PROAIR HFA) 90 Inhale 1 puff by mouth Active mcg/actuation inhaler into the lungs every 4 hours as needed for Wheezing or Shortness of Breath. Shake well before use. traZODone (DESYREL) 50 mg Take 50 mg by mouth at Active tablet bedtime daily. atorvastatin (LIPITOR) 40 Take 40 mg by mouth at Active mg tablet bedtime daily. gabapentin (NEURONTIN) Take 400 mg by mouth Active 400 mg capsule three times daily. estradiol (ESTRACE) 0.01 Insert or Apply to 42.5 g 03/20/20 Active % (0.1 mg/g) vaginal vaginal area every 7 17 cream days. Please apply in vagina three nights per week prior to bedtime LORazepam (ATIVAN) 0.5 mg Take 1 tablet by mouth Active tablet every 8 hours as needed (for anxiety or bladder pain). aspirin 81 mg chewable Chew 81 mg by mouth Active tablet daily. Take with food. ondansetron (ZOFRAN) 4 mg Take 4 mg by mouth every Active tablet 6 hours as needed for Nausea or Vomiting. morphine SR (MS CONTIN; Take 30 mg by mouth every Active ORAMORPH SR) 30 mg ER 12 hours tablet buPROPion XL (WELLBUTRIN Take 300 mg by mouth at Active XL) 300 mg tablet bedtime daily. Do not crush or chew. furosemide (LASIX) 20 mg Take 20 mg by mouth every Active tablet 48 hours. metFORMIN (GLUCOPHAGE) Take 500 mg by mouth Active 500 mg tablet daily. polyethylene glycol 3350 Take 17 g by mouth daily. Active (GLYCOLAX; MIRALAX) 17 gram/dose powder tamsulosin (FLOMAX) 0.4 Take 0.4 mg by mouth Active mg capsule daily. Do not crush, chew or open capsules. Take 30 minutes following the same meal each day. potassium chloride SR Take 40 mEq by mouth Active (K-DUR) 20 mEq tablet every 48 hours. Take with a meal and a full glass of water. budesonide/formoterol Inhale 2 puffs by mouth Active (SYMBICORT HFA) 160/4.5 into the lungs twice mcg inhalation daily. metoprolol tartrate Take 50 mg by mouth twice Active (LOPRESSOR) 50 mg tablet daily. Active Problems Problem Noted Date Urinary retention 09/20/2017 Overview: Added automatically from request for surgery [id number] Mixed stress and urge urinary incontinence 03/20/2017 Overview: Longstanding hx of JOE (UUI>MAXWELL), OAB, ISD, urinary retention who is s/p PVS (Solyx) by Dr. Andrews on 11/27/16; Macroplastique injection 02/12/17. Trailed Liz Amos without success. 03/20/17 - GRADES 9 THRU 12 VISITING TEACHER eval with Dr. Carlisle. Still with JOE (UUI>MAXWELL). Exam with moderate vulvovaginal atrophy, + leak with valsalva. PVR 150 mL UDS (09/19/17) with small capacity, retention, DO throughout filling until end; hypotonic bladder, no stress leak. Cystoscopy was unremarkable. L ast Assessment & Plan: - OR for SPT 10/04/17 - anticholinergic to be added once SPT placed Encounters Date Type Specialty Care Team Description 09/27/2017 PAC Office Anesthesiology Clarissa Carlisle MD Preop cardiovascular exam Visit (Primary Dx);Preop examination;Bleeding tendency (HCC);Hypertension, unspecified type 09/27/2017 Anesthesia Asia Baig APRN-GRADES 9 THRU 12 VISITING TEACHER Event 09/19/2017 Procedure visit Urology Clarissa Carlisle MD Mixed incontinence urge and stress (male)(female) (Primary Dx) 09/19/2017 Procedure visit Urology Clarissa Carlisle MD Mixed stress and urge urinary incontinence (Primary Dx) 09/19/2017 Prep for Case Urology Clarissa Carlisle MD Preop examination (Primary Dx);Bleeding tendency (HCC) from Last 3 Months Social History Tobacco Use Types Packs/Day Years Used Date Former Smoker Cigarettes 1 25 Smokeless Tobacco: Never Used Alcohol Use Drinks/Week oz/Week Comments No 0 Standard 0.0 drinks or equivalent Sex Assigned at Date Recorded Not on file Last Filed Vital Signs Vital Sign Reading Time Taken Blood Pressure 178/94 09/27/2017 10:47 AM DOCUMENTATION ENGINEER Pulse 77 09/27/2017 10:47 AM DOCUMENTATION ENGINEER Temperature 36.6 C (97.9 F) 09/27/2017 10:47 AM DOCUMENTATION ENGINEER Respiratory Rate - - Oxygen Saturation 96% 09/27/2017 10:47 AM DOCUMENTATION ENGINEER Inhaled Oxygen - - Concentration Weight 77.2 kg (170 lb 3.2 oz) 09/27/2017 10:47 AM DOCUMENTATION ENGINEER Height 157.5 cm (5' 2") 09/27/2017 10:47 AM DOCUMENTATION ENGINEER Body Mass Index 31.13 09/27/2017 10:47 AM DOCUMENTATION ENGINEER Plan of Treatment Health Maintenance Due Date Last Done Comments PHYSICAL (COMPREHENSIVE) 1944 EXAM PERTUSSIS VACCINE 1948 TETANUS VACCINE 1954 SHINGLES VACCINE 1997 OSTEOPOROSIS SCREENING 2002 PREVNAR/PNEUMOVAX (#1) 2002 INFLUENZA VACCINE 06/18/2017 Procedures Procedure Name Priority Date/Time Associated Diagnosis Comments URODYNAMIC STUDIES Routine 09/19/2017 Mixed incontinence urge Results for this 12:00 AM CDT and stress (male)(female) procedure are in the results section. from Last 3 Months Results * PTT (APTT) (09/27/2017 11:58 AM) Component Value Ref Range APTT 26.6Comment: NOTE NEW REFERENCE RANGES 21.0 - 39.0 SEC Specimen Performing Laboratory MAIN LAB [address] [id number] * PROTIME INR (PT) (09/27/2017 11:58 AM) Component Value Ref Range INR 1.1 0.8 - 1.2 Specimen Performing Laboratory MAIN LAB [address] [place] [address] * CBC AND DIFF (09/27/2017 11:58 AM) Component Value Ref Range White Blood Cells 9.8 4.5 - 11.0 K/UL RBC 4.40 4.0 - 5.0 M/UL Hemoglobin 13.2 12.0 - 15.0 GM/DL Hematocrit 39.4 36 - 45 % MCV 89.6 80 - 100 FL MCH 30.1 26 - 34 PG MCHC 33.6 32.0 - 36.0 G/DL RDW 14.5 11 - 15 % Platelet Count 226 150 - 400 K/UL MPV 8.4 7 - 11 FL Neutrophils 66 41 - 77 % Lymphocytes 26 24 - 44 % Monocytes 6 4 - 12 % Eosinophils 1 0 - 5 % Basophils 1 0 - 2 % Absolute Neutrophil Count 6.50 1.8 - 7.0 K/UL Absolute Lymph Count 2.50 1.0 - 4.8 K/UL Absolute Monocyte Count 0.60 0 - 0.80 K/UL Absolute Eosinophil Count 0.10 0 - 0.45 K/UL Absolute Basophil Count 0.10 0 - 0.20 K/UL Specimen Performing Laboratory MAIN LAB [address] [id number] * BASIC METABOLIC PANEL (09/27/2017 11:58 AM) Component Value Ref Range Sodium 136 (L) 137 - 147 MMOL/L Potassium 4.0 3.5 - 5.1 MMOL/L Chloride 105 98 - 110 MMOL/L CO2 23 21 - 30 MMOL/L Anion Gap 8 3 - 12 Glucose 82 70 - 100 MG/DL Blood Urea Nitrogen 16 7 - 25 MG/DL Creatinine 0.63 0.4 - 1.00 MG/DL Calcium 9.4 8.5 - 10.6 MG/DL eGFR Non >60 >60 mL/min Comment: The eGFR is not validated for use in drug dosing adjustments. Continue to use estimated creatinine clearance per dosing reference text. Please contact the Clinical Pharmacist for questions. eGFR >60 >60 mL/min Comment: The eGFR is not validated for use in drug dosing adjustments. Continue to use estimated creatinine clearance per dosing reference text. Please contact the Clinical Pharmacist for questions. Specimen Performing Laboratory MAIN LAB [address] [place] [address] * URODYNAMIC STUDIES (09/19/2017) Specimen Performing Laboratory IN CLINIC * POC URINE DIPSTICK MANUAL READ (09/19/2017) Component Value Ref Range Urine Glucose POC neg Urine Bilirubin POC neg Urine Ketone POC neg Urine Specific [place] 1.020 POC Urine Blood POC neg Urine PH POC 5.0 Urine Protein POC neg Urine Urobilinogen POC neg Urine Nitrite POC neg Urine Leukocytes POC neg Color,UA yellow Turbidity,UA clear Specimen Performing Laboratory Urine IN CLINIC from Last 3 Months
--- OUTSIDE RECORDS SUMMARY | 2017-11-27 11:38 | XMS REPORT | Encounter Summary ---
Author Author [facility] Organization [facility] Address Unknown Phone Unavailable Care Team Providers Care Freight Rate Clerk Name Role Phone PCP Unavailable Encounter Details Date Type Department Care Team Description 09/27/2017 Anesthesia Main Operating Room Asia Baig APRN-DEHYDRATOR TENDER Event [address] [place] [address] [place] [address] [phone] Social History Tobacco Use Types Packs/Day Years Used Date Former Smoker Cigarettes 1 25 Smokeless Tobacco: Never Used Alcohol Use Drinks/Week oz/Week Comments No 0 Standard 0.0 drinks or equivalent Sex Assigned at Date Recorded Not on file as of this encounter OR Notes * Anesthesia Preprocedure Evaluation - Caitlyn Marrufo MD - 09/27/2017 11:48 AM RAW PRODUCTS DIRECTOR Formatting of this note may be different from the original. Anesthesia Pre-Procedure Evaluation Name: Sanjuanita Barnes : 1935 Age: 81 y.o. Sex: female Procedure Date: 10/04/2017 Procedure: Procedure(s) with comments: CYSTOSTOMY, SUPRAPUBIC TUBE PLACEMENT - CASE LENGTH 30 MINUTES Physical Assessment Vital Signs (last filed in past 24 hours): BP: 178/94 (09/27 1047) Temp: 36.6 C (97.9 F) (09/27 1047) Pulse: 77 (09/27 1047) Respirations: 15 PER MINUTE (09/27 1047) SpO2: 96 % (09/27 1047) O2 Delivery: None (Room Air) (09/27 1047) Height: 157.5 cm (62") (09/27 1047) Weight: 77.2 kg (170 lb 3.2 oz) (09/27 1047) Dosing / Dry Weight: 77.2 kg (170 lb 3.2 oz) (09/27 1047) Patient History Past Medical History: Diagnosis Date Acid reflux Anxiety Arthritis COPD (chronic obstructive pulmonary disease) (HCC) Coronary artery disease Depression Dyslipidemia History of mandibular surgery Hypertension Past Surgical History: Procedure Laterality Date BACK SURGERY x2 CARPAL TUNNEL RELEASE Bilateral CERVICAL SPINE SURGERY x2 CORONARY ARTERY BYPASS GRAFT ~2014 x3 vessels bypassed CORONARY STENT PLACEMENT x3 HEART CATHETERIZATION HX APPENDECTOMY HX TONSILLECTOMY INTRACRANIAL ANEURYSM REPAIR ~ 10 yrs ago KNEE REPLACEMENT Left MANDIBLE SURGERY due to arthritis ROTATOR CUFF REPAIR Bilateral Allergies Allergen Reactions Sulfa (Sulfonamide Antibiotics) ITCHING Current Medications Medication Directions albuterol (PROAIR HFA) 90 mcg/actuation inhaler Inhale [...] mouth at bedtime as needed for Sleep. Review of Systems/Medical History Patient summary reviewed Pertinent labs reviewed PONV Screening: Female gender, Postoperative opioids and Non-smoker No history of anesthetic complications No family history of anesthetic complications Airway - negative No TMJ (hx of mandible reconstruction - subsequent intubation without difficulty) Pulmonary Not a current smoker (hx of 1 ppd x 25 years) COPD, moderate No sleep apnea Cardiovascular Exercise tolerance: <4 METS Beta Ha therapy: Yes No pacemaker Hypertension, poorly controlled Coronary artery disease Coronary artery bypass graft (2015) PTCA (x2 prior to CABG) No palpitations Dysrhythmias (unsure of diagnosis) No indications/hx of CHF No orthopnea Dyspnea on exertion GI/Hepatic/Renal GERD (notes dysphagia), poorly controlled No hx of liver disease No renal disease Complete urinary incontinence Neuro/Psych No CVA Chronic opioid use (Morphine q 12 hours ) No indications/hx of Parkinson's disease Musculoskeletal Neck pain Back pain Arthritis Endocrine/Other - negative Physical Exam Airway Findings Mallampati: IV TM distance: >3 FB Neck ROM: limited Mouth opening: limited Airway patency: adequate Dental Findings: Lower dentures and upper dentures Cardiovascular Findings: Rhythm: irregular Rate: normal Other findings: carotid bruit (right sided) No peripheral edema Pulmonary Findings: Breath sounds clear to auscultation. Abdominal Findings: Abdomen soft Bowel sounds normal. Neurological Findings: Comments: alert and oriented Diagnostic Tests Hematology: Lab Results Component Value Date HGB 13.2 09/27/2017 HCT 39.4 09/27/2017 PLTCT 226 09/27/2017 WBC 9.8 09/27/2017 NEUT 66 09/27/2017 ANC 6.50 09/27/2017 ALC 2.50 09/27/2017 FAVIAN 6 09/27/2017 AMC 0.60 09/27/2017 EOSA 1 09/27/2017 ABC 0.10 09/27/2017 MCV 89.6 09/27/2017 MCH 30.1 09/27/2017 MCHC 33.6 09/27/2017 MPV 8.4 09/27/2017 RDW 14.5 09/27/2017 General Chemistry: Lab Results Component Value Date NA 136 09/27/2017 K 4.0 09/27/2017 CL 105 09/27/2017 CO2 23 09/27/2017 GAP 8 09/27/2017 BUN 16 09/27/2017 CR 0.63 09/27/2017 GLU 82 09/27/2017 CA 9.4 09/27/2017 Coagulation: Lab Results Component Value Date PTT 26.6 09/27/2017 INR 1.1 09/27/2017 Anesthesia Plan ASA score: 4 Plan: general Informed Consent Use of blood products discussed with patient;. Lab: CBC, BMP EKG: a fib - not RVR Consults: Cardiology - needs to be seen and cleared Addendum: pt evaluated at [facility], underwent stress test which was abnormal. Proceeded to undergo cath, which showed widely patent grafts to coronary arteries ( LAD, RCA, obtuse marginal, ) normal LV function EF 70%, moderate AAA, Echo showed PASP approx 60 mmHg. in this encounter Plan of Treatment Not on fileas of this encounter Visit Diagnoses Not on filein this encounter
--- OUTSIDE RECORDS SUMMARY | 2017-11-27 11:38 | XMS REPORT | Encounter Summary ---
Author Author [facility] Organization [facility] Address Unknown Phone Unavailable Care Team Providers Care Sand Car Worker Name Role Phone PCP Unavailable Encounter Details Date Type Department Care Team Description 09/19/2017 Prep for Case [facility] Clarissa Carlisle MD Preop examination Physicians - Urology [address] (Primary Dx);Bleeding 2ND FLOOR POD A [address] tendency (HCC) [address] [place] [address] OFFICE BLDG [phone] [place] [address] Social History Tobacco Use Types Packs/Day Years Used Date Never Smoker Smokeless Tobacco: Never Used Alcohol Use Drinks/Week oz/Week Comments No 0 Standard 0.0 drinks or equivalent Sex Assigned at Date Recorded Not on file as of this encounter Plan of Treatment Not on fileas of this encounter Results * CBC AND DIFF (09/27/2017 11:58 AM) [...] K/UL Specimen Performing Laboratory MAIN LAB [address] [place] [address] * BASIC METABOLIC PANEL (09/27/2017 11:58 AM) [...] for questions. Specimen Performing Laboratory MAIN LAB [address] [place] [id number] * PTT (APTT) (09/27/2017 11:58 AM) Component Value Ref Range APTT 26.6Comment: NOTE NEW REFERENCE RANGES 21.0 - 39.0 SEC Specimen Performing Laboratory MAIN LAB [address] [place] [address] * PROTIME INR (PT) (09/27/2017 11:58 AM) Component Value Ref Range INR 1.1 0.8 - 1.2 Specimen Performing Laboratory MAIN LAB [address] [place] [id number] in this encounter Visit Diagnoses Diagnosis Preop examination - Primary Preoperative examination, unspecified Bleeding tendency (HCC) Unspecified hemorrhagic conditions in this encounter
--- OUTSIDE RECORDS SUMMARY | 2017-11-27 11:38 | XMS REPORT | Encounter Summary ---
Author Author [facility] Organization [facility] Address Unknown Phone Unavailable Care Team Providers Care Home Therapy Clinician Name Role Phone PCP Unavailable Encounter Details Date Type Department Care Team Description 09/27/2017 PAC Office Preoperative Assessment Clarissa Carlisle MD Preop cardiovascular exam Visit Clinic [address] (Primary Dx);Preop [address] examination;[place] [address] [place] [address] tendency [phone] (HCC);Hypertension, unspecified type Social History Tobacco Use Types Packs/Day Years Used Date Former Smoker Cigarettes 1 25 Smokeless Tobacco: Never Used Alcohol Use Drinks/Week oz/Week Comments No 0 Standard 0.0 drinks or equivalent Sex Assigned at Date Recorded Not on file as of this encounter Last Filed Vital Signs Vital Sign Reading Time Taken Blood Pressure 178/94 09/27/2017 10:47 AM PASTRY ARTIST Pulse 77 09/27/2017 10:47 AM PASTRY ARTIST Temperature 36.6 C (97.9 F) 09/27/2017 10:47 AM PASTRY ARTIST Respiratory Rate - - Oxygen Saturation 96% 09/27/2017 10:47 AM PASTRY ARTIST Inhaled Oxygen - - Concentration Weight 77.2 kg (170 lb 3.2 oz) 09/27/2017 10:47 AM PASTRY ARTIST Height 157.5 cm (5' 2") 09/27/2017 10:47 AM PASTRY ARTIST Body Mass Index 31.13 09/27/2017 10:47 AM PASTRY ARTIST in this encounter Instructions * Pre-Anesthesia Patient Instructions - Lou Benavidez RN - 09/27/2017 11:40 AM PASTRY ARTIST GENERAL INFORMATION Before you come to the hospital Make arrangements for a responsible adult to drive you home and stay with you for 24 hours following surgery. Bath/Shower Instructions Take a bath or shower using the special soap given to you in PAC. Use half the bottle the night before, and the other half the morning of your procedure. Use clean towels with each bath or shower. Put on clean clothes after bath or shower. Avoid using lotion and oils. If you are having surgery above the waist, wear a shirt that fastens up the front. Sleep on clean sheets if bath or shower is done the night before procedure. Leave money, credit cards, jewelry, and any other valuables at home. [facility] is not responsible for the loss or breakage of personal items. Remove nail finnish, makeup and all jewelry (including piercings) before coming to the hospital. The morning of your procedure: brush your teeth and tongue do not smoke do not shave the area where you will have surgery What to bring to the hospital ID/ Insurance Card Neurophysiology Tech card Official documents for legal guardianship Copy of your Living Will, Advanced Directives, and/or Durable Power of Rubber Insulator Small bag with a few personal belongings Walker,cane, or motorized scooter Cases for glasses/hearing aids/contact lens (bring solutions for contacts) Dress in clean, loose, comfortable clothing Eating or drinking before surgery Do not eat or drink anything after 11:00 p.m. the day before your procedure ( including gum, mints, candy, or chewing tobacco). Other instructions: You may have water until 2 hours prior to your arrival to the hospital. Other instructions Notify your surgeon if: you become ill with a cough, fever, sore throat, nausea, vomiting or flu- like symptoms you have any open wounds/sores that are red, painful, draining, or are new since you last saw the doctor you need to cancel your procedure Notify us at [facility]: if you need to cancel your procedure if you are going to be late Arrival at the [facility]: You will receive your arrival time from your surgeon or from the Preoperative Assessment Clinic the afternoon before your procedure. If you have not been contacted between 2:30 and 4 p.m. on the last business day before your procedure, call the Preoperative Assessment Clinic to confirm your arrival time. Before 4:30 p.m., call [phone]. After 4:30 p.m., call [phone]. Park in the [employer] [facility] [facility] located directly across from the main entrance to the hospital. Per Diem Nurse parking is available from 7 AM to 4 PM Saturday through Saturday. Validate your parking ticket at the Information Desk in the hospital lobby. Proceed to Admissions located across the lobby from the Information Desk. * Pre-Anesthesia Medication Instructions - Mitra Younger, MONTSED - 2016 10:08 AM PASTRY ARTIST Formatting of this note may be different from the original. PreOperative Medication Instructions for your patient, Sanjuanita Barnes for upcoming surgery on 10/04/[address] Carlisle at the [facility]: Sanjuanita Suárezaugusta MEDICATIONS: albuterol (PROAIR HFA) 90 mcg/actuation inhaler Inhale 1 puff by mouth into the lungs every 4 hours as needed for Wheezing or Shortness of Breath. Shake well before use. aspirin 81 mg chewable tablet Chew 81 mg by mouth daily. Take with food. atorvastatin (LIPITOR) 40 mg tablet Take 40 mg by mouth at bedtime daily. budesonide/formoterol (SYMBICORT HFA) 160/4.5 mcg inhalation Inhale 2 puffs by mouth into the lungs twice daily. buPROPion XL (WELLBUTRIN XL) 300 mg tablet Take 300 mg by mouth at bedtime daily. Do not crush or chew. estradiol (ESTRACE) 0.01 % (0.1 mg/g) vaginal cream Insert or Apply to vaginal area every 7 days. Please apply in vagina three nights per week prior to bedtime furosemide (LASIX) 20 mg tablet Take 20 mg by mouth every 48 hours. gabapentin (NEURONTIN) 400 mg capsule Take 400 mg by mouth three times daily. LORazepam (ATIVAN) 0.5 mg tablet Take 1 tablet by mouth every 8 hours as needed (for anxiety or bladder pain). metFORMIN (GLUCOPHAGE) 500 mg tablet Take 500 mg by mouth daily. metoprolol tartrate (LOPRESSOR) 50 mg tablet Take 50 mg by mouth twice daily. morphine SR (MS CONTIN; ORAMORPH SR) 30 mg ER tablet Take 30 mg by mouth every 12 hours ondansetron (ZOFRAN) 4 mg tablet Take 4 mg by mouth every 6 hours as needed for Nausea or Vomiting. polyethylene glycol 3350 (GLYCOLAX; MIRALAX) 17 gram/dose powder Take 17 g by mouth daily. potassium chloride SR (K-DUR) 20 mEq tablet Take 40 mEq by mouth every 48 hours. Take with a meal and a full glass of water. tamsulosin (FLOMAX) 0.4 mg capsule Take 0.4 mg by mouth daily. Do not crush , chew or open capsules. Take 30 minutes following the same meal each day. traZODone (DESYREL) 50 mg tablet Take 50 mg by mouth at bedtime daily. Sanjuanita Barnes 's MEDICATION INSTRUCTIONS FOR SURGERY: Before surgery Do not start any new vitamins, herbals, or natural supplements before surgery. Stop the following medications 7 days before surgery: Anti-inflammatory medications such as ibuprofen (Advil, Motrin) and naproxen (Aleve) The patient may use acetaminophen (Tylenol) Please follow these instructions regarding the patient's blood thinner medications: Aspirin: hold for 7 days prior to surgery if approved by Dr. Chacon. Please call and let us know if this is approved. (Ok per Dr. Chacon -RS) Morning of surgery On the morning of surgery, do NOT ADMINISTER these medications: Estrace cream Furosemide Metformin Miralax Potassium On the morning of surgery, ADMINISTER ONLY these medications with a sip (1-2 ounces) of water: Proair as usual Symbicort as usual Gabapentin Lorazepam if needed Metoprolol Morphine Ondansetron if needed Tamsulosin Mitra Younger PHARMD Preoperative Assessment Clinic [facility] E-mail: [email or web address] Facility Resident at: [facility] Medication Instructions above faxed on 09/27/17 in this encounter Progress Notes * Mitra Younger, EN - 09/27/2017 10:30 AM PASTRY ARTIST PAC Pharmacist Medication Plan Note: Sanjuanita Barnes was seen in the PAC on 09/27/17. As part of the visit, an accurate medication list was obtained and the patient was given pre-op medication instructions for upcoming surgery on 10/04/17. Per a nurse with Dr. Chacon, the patient may hold aspirin for 7 days prior to surgery. The patient was given her last dose this morning, 09/27/17. The plan above was communicated to the patient's skilled nursing who verbalized understanding. MONTSE MckinneyD in this encounter Plan of Treatment Not on fileas of this encounter Results * PTT (APTT) (09/27/2017 11:58 AM) Component Value Ref Range APTT 26.6Comment: NOTE NEW REFERENCE RANGES 21.0 - 39.0 SEC Specimen Performing Laboratory MAIN LAB [address] [place] [address] * PROTIME INR (PT) (09/27/2017 11:58 AM) Component Value Ref Range INR 1.1 0.8 - 1.2 Specimen Performing Laboratory MAIN LAB [address] [place] [address] * CBC AND DIFF (09/27/2017 11:58 AM) [...] K/UL Specimen Performing Laboratory MAIN LAB [address] [place] [address] * BASIC METABOLIC PANEL (09/27/2017 11:58 AM) [...] questions. Specimen Performing Laboratory MAIN LAB [address] [place] [address] in this encounter Visit Diagnoses Diagnosis Preop cardiovascular exam - Primary Pre-operative cardiovascular examination Preop examination Preoperative examination, unspecified Bleeding tendency (HCC) Unspecified hemorrhagic conditions Hypertension, unspecified type in this encounter
--- OUTSIDE RECORDS SUMMARY | 2017-11-27 11:38 | XMS REPORT | Continuity of Care Document ---
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 Sample Book Maker Name Role Phone [employer] Unavailable Unavailable Problems Medications Allergies, Adverse Reactions, Alerts Immunizations Results Vital Signs Encounters Location Location Details Encounter Type Encounter Number Reason For Visit Attending Provider ADM Date DC Date Status Source SPECIMEN [id number] NIALL CLAYTON 06/10/20172016 Active [facility] SPECIMEN [id number] NIALL CLAYTON 07/17/20172016 Active [facility] OUTPATIENT [id number] 09/27/2017 Active [facility] O Active [facility] OP SURGERY [id number] NIALL CLAYTON Active [facility] Procedures Plan of Care Social History Assessment and Plan Family History Advance Directives Functional Status
[2017-11-27] MEDS ORDERED: LEVO250T11 PO (11:41)
--- NOTE | 2017-11-27 11:46 | Discharge Instructions ---
Discharge [facility] Discharge Medications New, Converted or Re-Newed RX: Other New Medications: Levofloxacin (Levaquin) 250 Mg Tablet 250 MG PO DAILY for 5 Days, #5 TAB 0 Refills Continued Medications: Albuterol Sulfate (Proair Hfa) 8.5 Gm Hfa.aer.ad 1 PUFF IH Q4H PRN for SHORTNESS OF BREATH, INH Apixaban (Eliquis) 5 Mg Tablet 5 MG PO BID, TAB ON HOLD THROUGH 12-03-17 Aspirin (Aspirin) 81 Mg Tab.chew 81 MG PO DAILY, TAB ON HOLD THROUGH 12-10-17 Atorvastatin Calcium (Lipitor) 40 Mg Tablet 40 MG PO HS, TAB Budesonide/Formoterol Fumarate (Symbicort 160-4.5 Mcg Inhaler) 10.2 Gm Hfa.aer.ad 2 PUFF IH BID, INHALER Bupropion HCl (Bupropion Xl) 300 Mg Tab.er.24h 300 MG PO HS, TAB Estradiol (Estrace Cream) 42.5 Gm Cream.appl 1 GM TOP Fr, EA APPLY 1 GM TO VAGINAL AREA EXTERNALLY WEEKLY AT HS FOR UTI PROPHYLAXIS Estradiol (Estrace Cream) 42.5 Gm Cream.appl 1 GM VG MoWeFr, EA APPLY 1 GM VAGINAL INTERNALLY 3X PER WEEK Furosemide (Furosemide) 20 Mg Tablet 20 MG PO Q48H, TAB Gabapentin (Gabapentin) 400 Mg Capsule 400 MG PO TID, CAP Lorazepam (Ativan) 0.5 Mg Tablet 0.5 MG PO Q8H PRN for ANXIETY/ BLADDER PAIN, TAB Metformin HCl (Metformin HCl) 500 Mg Tablet 500 MG PO DAILY, TAB TAKE WITH A MEAL Metoprolol Tartrate (Metoprolol Tartrate) 50 Mg Tablet 50 MG PO BID, TAB Morphine Sulfate (Morphine Sulfate ER) 30 Mg Tablet.er 30 MG PO Q12H, TAB Ondansetron HCl (Ondansetron HCl) 4 Mg Tablet 4 MG PO Q6H PRN for NAUSEA/VOMITING-1ST LINE, TAB Polyethylene Glycol 3350 (Miralax) 17 Gm Powd.pack 17 GM PO DAILY, EACH Potassium Chloride (Potassium Chloride) 20 Meq Tab.er.prt 40 MEQ PO Q48H, TAB TAKES 2 (20MEQ) TABLETS EVERY OTHER DAY WITH FUROSEMIDE Tamsulosin HCl (Flomax) 0.4 Mg Cap 0.4 MG PO DAILY, CAP Trazodone HCl (Trazodone HCl) 50 Mg Tablet 50 MG PO HS, TAB Patient Instructions Goal/Follow Up Appt: SHAHNAZ IS GOING TO SEE YOU TOMORROW AT [facility]. Patient Instructions: PLEASE TAKE ALL ANTIBIOTICS PRESCRIBED. DR NORWOOD WILL LET YOU KNOW WHEN TO RESUME THE ELIQUIS. Return to The Hospital For: FEVER, CONFUSION Activity & Diet Discharge Diet: No Restrictions Activity as Tolerated: Yes Copy Copies To 1: PRUDENCE DURBIN APRN, MD Nov 27, 2017 11:46
--- NOTE | 2017-11-27 11:51 | Progress Note-Urology ---
Progress Note-Urology Progress Notes/Assess & Plan Progress/Assessment & Plan PATIENT IS STABLE BUT VERY ANXIOUS AND HAS SOME DRY HEAVES. ABDOMEN SOFT AND NOT TENDER, WBC 20. NO EVIDENCE OF BLEEDING . PLAN DC ANN AND CONTINUE SAME RX Final Diagnosis UROSEPSIS LUL NORWOOD MD Nov 27, 2017 11:51 am
--- OUTSIDE RECORDS SUMMARY | 2017-11-27 11:52 | XMS REPORT | Continuity of Care Document ---
Author Author [facility] Address Unknown Phone Unavailable Allergies Active Description [...] Allergy N/A N/A 05/19/2013 Yes diphenhydramine HCl [id number] Drug Allergy Unknown N/A 05/14/2016 Yes hydrochlorothiazide [id number] Drug Allergy Unknown N/A 05/14/2016 Yes varenicline tartrate [id number] Drug Allergy Unknown N/A 05/14/2016 Yes Sulfa (Sulfonamide Antibiotics) [id number] Drug Allergy Unknown N/A 2016 Medications There is no data. Problems Date Dx Coded Attending Type Code [...] PULMONARY DISEASE 11/06/2011 683 ACUTE LYMPHADENITIS 11/06/2011 HAZEL DO, MIKE [...] DO 246.9 UNSPECIFIED DISORDER OF THYROID 11/06/2011 WERDER DO, MARIA DE JESUS F 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 11/06/2011 RESHMADER DO MARIA DE JESUS F 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 11/06/2011 CARRIE DO MARIA DE JESUS F 496 CHRONIC OBSTRUCTIVE PULMONARY DISEASE 11/06/2011 RESHMADER DO MARIA DE JESUS F 683 ACUTE [...] JESUS BUTLER DO 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 11/06/2011 MARIA DE JESUS BUTLER DO 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 11/06/2011 MARIA DE JESUS BUTLER DO F 496 CHRONIC OBSTRUCTIVE PULMONARY DISEASE 11/06/2011 MARIA DE JESUS BUTLER DO 683 ACUTE LYMPHADENITIS 11/06/2011 CAROLINE MENDOZA MD [...] M 683 ACUTE LYMPHADENITIS 11/06/2011 BAIG DESI BURGOS [place] 246.9 UNSPECIFIED DISORDER OF THYROID 11/06/2011 BAIG EHS ENGINEER, DESI [place] 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 11/06/2011 BAIG EHS ENGINEER, EDSI [place] 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 11/06/2011 BAIG EHS ENGINEER, DESI [place] 496 CHRONIC OBSTRUCTIVE PULMONARY DISEASE 11/06/2011 ABIG EHS ENGINEER, DESI [place] 683 ACUTE LYMPHADENITIS 11/06/2011 BAIG EHS ENGINEER, DESI [place] 246.9 UNSPECIFIED DISORDER OF THYROID 11/06/2011 BAIG EHS ENGINEER, DESI [place] 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 11/06/2011 BAIG EHS ENGINEER, DESI [place] 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 11/06/2011 BAIG EHS ENGINEER, DESI [place] 496 CHRONIC OBSTRUCTIVE PULMONARY DISEASE 11/06/2011 BAIG EHS ENGINEER, DESI [place] 683 ACUTE LYMPHADENITIS 11/06/2011 TARI WOODSN, AUDIE R 246.9 UNSPECIFIED DISORDER OF THYROID 11/06/2011 TARI EHS ENGINEER, AUDIE R 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 11/06/2011 TARI EHS ENGINEER, AUDIE R 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 11/06/2011 TARI EHS ENGINEER, AUDIE R 496 CHRONIC OBSTRUCTIVE PULMONARY DISEASE 11/06/2011 TARI EHS ENGINEER, AUDIE R 683 ACUTE LYMPHADENITIS 11/06/2011 JIMMY WOODSN, SHAHNAZ S 246.9 UNSPECIFIED DISORDER OF THYROID 11/06/2011 JIMMY EHS ENGINEER, SHAHNAZ S 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 11/06/2011 JIMMY EHS ENGINEER SHAHNAZ S 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 11/06/2011 JIMMY EHS ENGINEER, SHAHNAZ S 496 CHRONIC OBSTRUCTIVE PULMONARY DISEASE 11/06/2011 JIMMY BURGOS, SHAHNAZ S 683 ACUTE LYMPHADENITIS 11/06/2011 MAX [...] 246.9 UNSPECIFIED DISORDER OF THYROID 11/06/2011 HAZEL DO MIKE K 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 11/06/2011 HAZEL DO, MIKE K 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 11/06/2011 HAZEL DO, MIKE K 496 CHRONIC OBSTRUCTIVE PULMONARY DISEASE 11/06/2011 HAZEL DO, MIKE K 683 ACUTE LYMPHADENITIS 11/06/2011 REJI ROLDAN, CAROLINE Magaña 246.9 UNSPECIFIED DISORDER OF THYROID 11/06/2011 CAROLINE [...] JOHNSON MD N 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 11/06/2011 GWEN JOHNSON MDY N 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 11/06/2011 GWEN JOHNSON MDY N 496 CHRONIC OBSTRUCTIVE PULMONARY DISEASE 11/06/2011 GWEN JOHNSON MDY N 683 ACUTE LYMPHADENITIS 11/06/2011 GWEN JOHNSON MDY N 246.9 UNSPECIFIED DISORDER OF THYROID 11/06/2011 SHARIF JOHNSON MD N 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 11/06/2011 GWEN JOHNSON MDY N 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 11/06/2011 SHARIF JOHNSON MD N 496 CHRONIC OBSTRUCTIVE PULMONARY DISEASE 11/06/2011 SHARIF JOHNSON MD N 683 ACUTE LYMPHADENITIS 11/06/2011 JOVANNI BURGOS DESI [place] 246.9 UNSPECIFIED DISORDER OF THYROID 11/06/2011 JOVANNI BURGOS DESI [place] 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 11/06/2011 JOVANNI BURGOS DESI [place] 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 11/06/2011 JOVANNI BURGOS DESI [place] 496 CHRONIC OBSTRUCTIVE PULMONARY DISEASE 11/06/2011 JOVANNI BURGOS DESI [place] 683 ACUTE LYMPHADENITIS 11/06/2011 SHARIF JOHNSON MD N 246.9 UNSPECIFIED DISORDER OF THYROID 11/06/2011 SHARIF JONHSON MD N 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 11/06/2011 SHARIF JOHNSON MD N 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 11/06/2011 SHARIF JOHNSON MD N 496 CHRONIC OBSTRUCTIVE PULMONARY DISEASE 11/06/2011 SHARIF JOHNSON MD N 683 ACUTE LYMPHADENITIS 11/06/2011 SHARIF JOHNSON MD N 246.9 UNSPECIFIED DISORDER OF THYROID 11/06/2011 SHARIF JOHNSON MD N 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 11/06/2011 ELIZABETH ROLDAN SAHRIF N 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 11/06/2011 GWEN JOHNSON MDY N 496 CHRONIC OBSTRUCTIVE PULMONARY DISEASE 11/06/2011 SHARIF JOHNSON MD N 683 ACUTE LYMPHADENITIS 11/06/2011 JOVANNI BURGOS DESI [place] 246.9 UNSPECIFIED DISORDER OF THYROID 11/06/2011 DESI BAIG APRN 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 11/06/2011 DESI BAIG APRN 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 11/06/2011 DESI BAIG APRN 496 CHRONIC OBSTRUCTIVE PULMONARY DISEASE 11/06/2011 DESI BAIG APRN 683 ACUTE LYMPHADENITIS 11/06/2011 SHARIF JOHNSON MD 246.9 UNSPECIFIED DISORDER OF THYROID 11/06/2011 SHARIF [...] M 246.9 UNSPECIFIED DISORDER OF THYROID 11/06/2011 JANINA JEWELSMITHMASSIEL M 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 11/06/2011 JANINA JEWELSMITHMINGOMASSIEL M 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 11/06/2011 JANINA JEWELSMITH, MASSIEL M 496 CHRONIC OBSTRUCTIVE PULMONARY DISEASE 11/06/2011 JANINA JEWELSMITH, MASSIEL M 683 ACUTE LYMPHADENITIS 11/06/2011 HAZEL [...] JOHNSON MD N 683 ACUTE LYMPHADENITIS 11/06/2011 SHANIQUE VEGA [...] 12/18/2011 296.30 MO DEPRESSIVE RECURRENT UNSPECIFIED 12/18/2011 CHANDA HAZEL DOA K 296.30 MO DEPRESSIVE RECURRENT UNSPECIFIED 12/18/2011 HAZEL CHANDA VILLALOBOSA K 296.30 MO DEPRESSIVE RECURRENT UNSPECIFIED 12/18/2011 [...] APRN 296.30 MO DEPRESSIVE RECURRENT UNSPECIFIED 12/18/2011 JIMMY EHS ENGINEER, SHAHNAZ S 296.30 MO DEPRESSIVE RECURRENT UNSPECIFIED 12/18/2011 MAX [...] MO DEPRESSIVE RECURRENT UNSPECIFIED 12/18/2011 JOVANNI BURGOS EDSI [place] 296.30 MO DEPRESSIVE RECURRENT UNSPECIFIED 12/18/2011 SHARIF JOHNSON MD N 296.30 MO DEPRESSIVE RECURRENT UNSPECIFIED 12/18/2011 SHARIF JOHNSON MD N 296.30 MO DEPRESSIVE RECURRENT UNSPECIFIED 12/18/2011 JOVANNI BURGOS DESI [place] 296.30 MO DEPRESSIVE RECURRENT UNSPECIFIED 12/18/2011 SHARIF JOHNSON MD N 296.30 MO DEPRESSIVE RECURRENT UNSPECIFIED 12/18/2011 SHARIF JOHNSON MD N 296.30 MO DEPRESSIVE RECURRENT UNSPECIFIED 12/18/2011 MASSIEL VEGA 296.30 MO DEPRESSIVE RECURRENT UNSPECIFIED 12/18/2011 MIKE HAZEL DO K 296.30 MO DEPRESSIVE RECURRENT UNSPECIFIED 12/18/2011 SHARIF [...] MD 300.00 AN ANXIETY UNSPEC 04/18/2012 CAROLINE MNEDOZA MD 300.00 AN ANXIETY UNSPEC 04/18/2012 SHARIF JOHNSON MD 300.00 AN ANXIETY UNSPEC 04/18/2012 SHARIF JOHNSON MD 300.00 AN ANXIETY UNSPEC 04/18/2012 SHARIF JOHNSON MD 300.00 AN ANXIETY UNSPEC 04/18/2012 SHARIF JOHNSON MD 300.00 AN ANXIETY UNSPEC 04/18/2012 SHARIF JOHNSON MD 300.00 AN ANXIETY UNSPEC 04/18/2012 DESI BAIG APRN 300.00 AN ANXIETY UNSPEC 04/18/2012 SHARIF JOHNSON MD 300.00 AN ANXIETY UNSPEC 04/18/2012 SHARIF JOHNSON MD 300.00 AN ANXIETY UNSPEC 04/18/2012 DESI BAIG APRN 300.00 AN ANXIETY UNSPEC 04/18/2012 SHARIF JOHNSON [...] 300.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 04/30/2012 MARIA DE JEUSS BUTLER DO 300.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 04/30/2012 CAROLINE MENDOZA MD 300.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 04/30/2012 MARIA DE EJSUS BUTLER DO F 300.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 [...] AN GEN ANXIETY 04/30/2012 SHAHNAZ MARQUEZ APRN 300.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 04/30/2012 MAX [...] JOHNSON MD 300.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 04/30/2012 BAIG AUBREY DESI CONRAD 300.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 04/30/2012 SHARIF JOHNSON [...] APRN R 307.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 05/29/2012 SHAHNAZ MARQUEZ APRN S 307.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 05/29/2012 MAX DHILLON APRN 307.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 05/29/2012 MAX DHILLON APRN 307.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 05/29/2012 MIKE HAZEL DO 307.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 05/29/2012 CAROLINE [...] JOHNSON MD 307.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 05/29/2012 MASSIEL VEGA 307.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 05/29/2012 MIKE HAZEL DO 307.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 05/29/2012 SHARIF JOHNSON MD 307.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 05/29/2012 SHANIQUE VEGA MD 307.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 05/29/2012 SHARIF JOHNSON MD 307.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 05/29/2012 SHARIF JOHNSON MD 307.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 05/29/2012 MARIA [...] AGORA 06/05/2012 V58.69 MEDICATION HIGH RISK 06/05/2012 CHANDA HAZEL DOA K 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 06/05/2012 HAZEL CHANDA VILLALOBOSA K V58.69 MEDICATION HIGH RISK 06/05/2012 HAZEL DO MIKE K 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 06/05/2012 HAZEL DO MIKE K V58.69 MEDICATION HIGH RISK 06/05/2012 MARIA [...] AN PANIC DIS W AGORA 06/05/2012 JIMMY BURGOS SHAHNAZ S V58.69 MEDICATION HIGH RISK 06/05/2012 [...] MD N V58.69 MEDICATION HIGH RISK 06/05/2012 JOVANNI BURGOS DESI CONRAD 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 06/05/2012 JOVANNI BURGOS DESI CONRAD V58.69 MEDICATION HIGH RISK 06/05/2012 SHARIF JOHNSON MD N 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 06/05/2012 SHARIF JOHNSON MD N V58.69 MEDICATION HIGH RISK 06/05/2012 SHARIF JOHNSON MD N 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 06/05/2012 SHARIF JOHNSON MD V58.69 MEDICATION HIGH RISK 06/05/2012 JOVANNI BURGOS DESI CONRAD 300.21 AN PANIC DIS [...] MASSIEL VEGA V58.69 MEDICATION HIGH RISK 06/05/2012 MIKE HAZEL DO K 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 06/05/2012 CHANDA HAZEL DOA K V58.69 MEDICATION HIGH RISK 06/05/2012 SHARIF JOHNSON MD N 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 06/05/2012 SHARIF JOHNSON MD N V58.69 MEDICATION HIGH RISK 06/05/2012 SHANIQUE VEGA [...] 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 06/10/2012 HAZEL DOMIKE K 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 06/10/2012 HAZEL DO, MIKE K 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 06/10/2012 MARIA DE JESUS BUTLER DO 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 06/10/2012 CAROLINE [...] MD 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) 06/10/2012 DESI BAIG APRN 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) 06/10/2012 DESI BAIG APRN 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) 06/10/2012 AUDIE MARC APRN R 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) 06/10/2012 JIMMY BURGOS SHAHNAZ S 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) 06/10/2012 MAX DHILLON APRN 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) 06/10/2012 MAX DHILLON APRN 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) 06/10/2012 MIKE HAZEL DO K 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) 06/10/2012 CAROLINE [...] 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) 06/10/2012 JOVANNI WOODSNDESI 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) 06/10/2012 SHARIF [...] DIS W/O AGORA 06/18/2012 SHAHNAZ MARQUEZ APRN 300.01 AN PANIC DIS W/O AGORA [...] 300.01 AN PANIC DIS W/O AGORA 06/18/2012 BAIG AUBREYDESI 300.01 AN PANIC DIS W/O AGORA 06/18/2012 SHARIF JOHNSON MD 300.01 AN PANIC DIS W/O AGORA 06/18/2012 SHARIF JOHNSON MD 300.01 AN PANIC DIS W/O AGORA 06/18/2012 BAIG AUBREYDESI 300.01 AN PANIC DIS W/O AGORA 06/18/2012 [...] MD 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 06/27/2012 BAIG APRN, DESI SINGHH 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 06/27/2012 BAIG [...] MD 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 06/27/2012 ELIZAEBTH MD, SHARIF N 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 06/27/2012 BAIG EHS ENGINEER, DESI CONRAD 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 06/27/2012 SHARIF JOHNSON MD N 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 06/27/2012 SHARIF JOHNSON MD N 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 06/27/2012 JOVANNI EHS ENGINEERDESI Menjivar 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 06/27/2012 SHARIF JOHNSON MD N 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 06/27/2012 SHARIF JOHNSON MD N 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 06/27/2012 MASSIEL VEGA 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 06/27/2012 MIKE HAZEL DO 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 06/27/2012 SHARIF [...] V04.81 Vaccines Prophylactic Need Against Influenza 09/11/2012 BAIG AUBREY DESI SINGHH V04.81 Vaccines Prophylactic Need Against [...] DO, MIKE K 785.1 palpitations 10/24/2012 WERDER DO, MARIA DE JESUS F 401.1 ESSENTIAL HYPERTENSION BENIGN 10/24/2012 WERDER DO, MARIA DE JESUS F 785.1 palpitations 10/24/2012 CAROLINE MENDOZA MD 401.1 ESSENTIAL HYPERTENSION BENIGN 10/24/2012 CAROLINE MENDOZA MD 785.1 palpitations 10/24/2012 WERMARKO MARSHALL DOEN F 401.1 ESSENTIAL HYPERTENSION BENIGN 10/24/2012 MARKO [...] ESSENTIAL HYPERTENSION BENIGN 10/24/2012 785.1 palpitations 10/24/2012 WERDONATO MARIA DE JESUS F 401.1 ESSENTIAL HYPERTENSION BENIGN 10/24/2012 CARRIE [...] JOVANNI WOODSN, DESI CONRAD 785.1 palpitations 10/24/2012 STEPHEN MARC APRNIA R 401.1 ESSENTIAL HYPERTENSION BENIGN 10/24/2012 STEPHEN MARC APRNIA R 785.1 palpitations 10/24/2012 SHAHNAZ MARQUEZ APRN S 401.1 ESSENTIAL HYPERTENSION BENIGN 10/24/2012 SHAHNAZ MARQUEZ APRN S 785.1 palpitations 10/24/2012 MAX DHILLON APRN T 401.1 ESSENTIAL HYPERTENSION BENIGN 10/24/2012 MAX DHILLON APRN T 785.1 palpitations 10/24/2012 MAX DHILLON APRN T 401.1 ESSENTIAL HYPERTENSION BENIGN 10/24/2012 MAX DHILLON APRN T 785.1 palpitations 10/24/2012 HAZEL DO MIKE K 401.1 ESSENTIAL HYPERTENSION BENIGN 10/24/2012 HAZEL DO, MIKE K 785.1 palpitations 10/24/2012 CAROLINE MENDOZA MD 401.1 [...] SHARIF JOHNSON MD N 785.1 palpitations 10/24/2012 JOVANNI BURGOS DESI SINGHH 401.1 ESSENTIAL HYPERTENSION BENIGN 10/24/2012 JOVANNI BURGOS DEIS CONRAD 785.1 palpitations 10/24/2012 SHARIF JOHNSON MD N 401.1 ESSENTIAL HYPERTENSION BENIGN 10/24/2012 SHARIF JOHNSON MD N 785.1 palpitations 10/24/2012 SHARIF JOHNSON MD N 401.1 ESSENTIAL HYPERTENSION BENIGN 10/24/2012 SHARIF JOHNSON MD N 785.1 palpitations 10/24/2012 JOVANNI BURGOS DESI CONRAD 401.1 ESSENTIAL HYPERTENSION BENIGN 10/24/2012 JOVANNI BURGOS DESI CONRAD 785.1 palpitations 10/24/2012 SHARIF JOHNSON MD N 401.1 ESSENTIAL HYPERTENSION BENIGN 10/24/2012 SHARIF JOHNSON MD N 785.1 palpitations 10/24/2012 SHARIF JOHNSON MD N 401.1 ESSENTIAL HYPERTENSION BENIGN 10/24/2012 SHARIF JONHSON MD N 785.1 palpitations 10/24/2012 MASSIEL VEGA M 401.1 ESSENTIAL HYPERTENSION BENIGN 10/24/2012 MASSIEL VEGA M 785.1 palpitations 10/24/2012 HAZEL DOCHANDAA K 401.1 ESSENTIAL HYPERTENSION BENIGN 10/24/2012 HAZEL [...] CAROLINE MENDOZA MD 790.29 HYPERGLYCEMIA 12/18/2012 JOVANNI EHS ENGINEER, DESI CONRAD 272.4 HYPERLIPIDEMIA 12/18/2012 JOVANNI EHS ENGINEER, DESI CONRAD 790.29 HYPERGLYCEMIA 12/18/2012 JOVANNI EHS ENGINEER, DESI CONRAD 272.4 HYPERLIPIDEMIA 12/18/2012 JOVANNI EHS ENGINEER, DESI CONRAD 790.29 HYPERGLYCEMIA 12/18/2012 MARC EHS ENGINEER, AUDIE R 272.4 HYPERLIPIDEMIA 12/18/2012 MARC EHS ENGINEER, AUDIE R 790.29 HYPERGLYCEMIA 12/18/2012 JIMMY EHS ENGINEER, SHAHNAZ S 272.4 HYPERLIPIDEMIA 12/18/2012 JIMMY EHS ENGINEER, SHAHNAZ S 790.29 HYPERGLYCEMIA 12/18/2012 JACQUIE EHS ENGINEER, MAX T 272.4 HYPERLIPIDEMIA 12/18/2012 JACQUIE BURGOS, MAX T 790.29 HYPERGLYCEMIA 12/18/2012 JACQUIE EHS ENGINEER, MAX T 272.4 HYPERLIPIDEMIA 12/18/2012 JACQUIE EHS ENGINEER, MAX T 790.29 HYPERGLYCEMIA 12/18/2012 HAZEL DO, MIKE K 272.4 HYPERLIPIDEMIA 12/18/2012 HAZEL DO, MIKE K 790.29 HYPERGLYCEMIA 12/18/2012 CAROLINE MENDOZA MD 272.4 HYPERLIPIDEMIA 12/18/2012 CAROLINE MENDOZA MD 790.29 HYPERGLYCEMIA 12/18/2012 CAROLINE MENDOZA MD 272.4 HYPERLIPIDEMIA 12/18/2012 CAROLINE MENDOZA MD M 790.29 HYPERGLYCEMIA 12/18/2012 SHARIF JOHNSON MD N 272.4 HYPERLIPIDEMIA 12/18/2012 SHARIF JOHNSON MD N 790.29 HYPERGLYCEMIA 12/18/2012 SHARIF JOHNSON MD N 272.4 HYPERLIPIDEMIA 12/18/2012 SHARIF JOHNSON MD N 790.29 HYPERGLYCEMIA 12/18/2012 SHARIF JOHNSON MD N 272.4 HYPERLIPIDEMIA 12/18/2012 SHARIF JOHNSON MD N 790.29 HYPERGLYCEMIA 12/18/2012 SHARIF JOHNSON MD N 272.4 HYPERLIPIDEMIA 12/18/2012 ELIZABETH MD, SHARIF N 790.29 HYPERGLYCEMIA 12/18/2012 SHARIF JOHNSON MD N 272.4 HYPERLIPIDEMIA 12/18/2012 SHARIF JOHNSON MD N 790.29 HYPERGLYCEMIA 12/18/2012 JOVANNI BURGOS DESI SINGHH 272.4 HYPERLIPIDEMIA 12/18/2012 JOVANNI BURGOS DESI CONRAD 790.29 HYPERGLYCEMIA 12/18/2012 ELIZABETH ROLDAN, SHARIF N 272.4 HYPERLIPIDEMIA 12/18/2012 SHARIF JOHNSON MD N 790.29 HYPERGLYCEMIA 12/18/2012 SHARIF JOHNSON MD N 272.4 HYPERLIPIDEMIA 12/18/2012 SHARIF JOHNSON MD N 790.29 HYPERGLYCEMIA 12/18/2012 JOVANNI BUGROS DESI SINGHH 272.4 HYPERLIPIDEMIA 12/18/2012 JOVANNI BURGOS DESI CONRAD 790.29 HYPERGLYCEMIA 12/18/2012 SHARIF JOHNSON MD N 272.4 HYPERLIPIDEMIA 12/18/2012 SHARIF JOHNSON MD N 790.29 HYPERGLYCEMIA 12/18/2012 SHARIF JOHNSON MD N 272.4 HYPERLIPIDEMIA 12/18/2012 SHARIF JOHNSON MD N 790.29 HYPERGLYCEMIA 12/18/2012 JANINA SCHREIBER, MASSIEL M 272.4 HYPERLIPIDEMIA 12/18/2012 JANINA SCHREIBER, MASSIEL M 790.29 HYPERGLYCEMIA 12/18/2012 MIKE HAZEL [...] MUSCLE 05/06/2013 728.85 SPASM OF MUSCLE 05/06/2013 MARIA DE JESUS BUTLER DO 728.85 SPASM OF MUSCLE 05/06/2013 CAROLINE [...] 338.29 CHRONIC PAIN 06/05/2013 JOVANNI BURGOS, DESI CONRAD 338.29 CHRONIC PAIN 06/05/2013 JOVANNI BURGOS, DESI CONRAD 338.29 CHRONIC PAIN 06/05/2013 AUDIE MARC APRN 338.29 CHRONIC PAIN 06/05/2013 SHAHNAZ MARQUEZ APRN S 338.29 CHRONIC PAIN 06/05/2013 MAX DHILLON APRN 338.29 CHRONIC PAIN 06/05/2013 MAX DHILLON APRN 338.29 CHRONIC PAIN 06/05/2013 MIKE HAZEL DO 338.29 CHRONIC PAIN 06/05/2013 CAROLINE MENDOZA MD 338.29 CHRONIC PAIN 06/05/2013 CAROLINE MENDOZA MD 338.29 CHRONIC PAIN 06/05/2013 SHARIF JOHNSON MD 338.29 CHRONIC PAIN 06/05/2013 SHARIF JOHNSON MD 338.29 CHRONIC PAIN 06/05/2013 SHARIF JOHNSON MD N 338.29 CHRONIC PAIN 06/05/2013 ELIZABETH ROLDAN, SHARIF N 338.29 CHRONIC PAIN 06/05/2013 ELIZABETH ROLDAN, SHARIF N 338.29 CHRONIC PAIN 06/05/2013 JOVANNI BURGOS DESI CONRAD 338.29 CHRONIC PAIN 06/05/2013 SHARIF JOHNSON MD 338.29 CHRONIC PAIN 06/05/2013 SHARIF JOHNSON MD 338.29 CHRONIC PAIN 06/05/2013 JOVANNI BURGOS DESI [...] DESI BAIG APRN 491.21 BRONCHITIS AECB 07/01/2013 JOVANNI BURGOS, DESI CONRAD 491.21 BRONCHITIS AECB 07/01/2013 AUDIE MARC APRN 491.21 BRONCHITIS AECB 07/01/2013 SHAHNAZ MARQUEZ APRN 491.21 BRONCHITIS AECB 07/01/2013 MAX DHILLON APRN 491.21 BRONCHITIS AECB 07/01/2013 JACQUIE BURGOS, MAX Powell 491.21 BRONCHITIS AECB 07/01/2013 HAZEL MIKE VILLALOBOS 491.21 BRONCHITIS AECB 07/01/2013 CAROLINE MENDOZA MD 491.21 BRONCHITIS AECB 07/01/2013 CAROLINE MENDOZA MD 491.21 BRONCHITIS AECB 07/01/2013 SHARIF JOHNSON MD 491.21 BRONCHITIS AECB 07/01/2013 SHARIF JOHNSON MD 491.21 BRONCHITIS AECB 07/01/2013 SHARIF JOHNSON MD 491.21 BRONCHITIS AECB 07/01/2013 SHARIF JOHNSON MD 491.21 BRONCHITIS AECB 07/01/2013 SHARIF JOHNSON MD 491.21 BRONCHITIS AECB 07/01/2013 JOVANNI BURGOS, DESI CONRAD 491.21 BRONCHITIS AECB 07/01/2013 SHARIF JOHNSON MD 491.21 BRONCHITIS AECB 07/01/2013 SHARIF JOHNSON MD 491.21 BRONCHITIS AECB 07/01/2013 JOVANNI BURGOS, DESI CONRAD 491.21 BRONCHITIS AECB 07/01/2013 SHARIF JOHNSON MD 491.21 BRONCHITIS AECB 07/01/2013 SHARIF JOHNSON MD 491.21 BRONCHITIS AECB 07/01/2013 MASSIEL VEGA 491.21 BRONCHITIS AECB 07/01/2013 MIKE HAZEL DO 491.21 BRONCHITIS AECB 07/01/2013 SHARIF JOHNSON MD 491.21 BRONCHITIS AECB 07/01/2013 SHANIQUE VEGA MD 491.21 BRONCHITIS AECB 07/01/2013 SHARIF JOHNSON MD 491.21 BRONCHITIS AECB 07/01/2013 SHARIF JOHNSON MD 491.21 BRONCHITIS AECB 07/01/2013 SHANIQUE VEGA MD 491.21 BRONCHITIS AECB 07/09/2013 SHANIQUE VEGA MD Ot 272.4 07/09/2013 SHANIQUE VEGA MD Ot 300.00 07/09/2013 SHANIQUE VEGA MD Ot 305.1 07/09/2013 SHANIQUE VEGA MD Ot 311 07/09/2013 GARY ROLDAN, SHANIQUE Funk Ot 338.29 07/09/2013 GARY ROLDAN, SHANIQUE Funk [...] BURGOS DESI CONRAD V05.8 ZOSTAVAX DX 09/22/2013 JOVANNI BURGOS DESI CONRAD 271.3 GLUCOSE INTOLERANCE 09/22/2013 JOVANNI BURGOS DESI CONRAD V05.8 ZOSTAVAX DX 09/22/2013 TARI BURGOS AUDIE R 271.3 GLUCOSE INTOLERANCE 09/22/2013 TARI BURGOS AUDIE R V05.8 ZOSTAVAX DX 09/22/2013 FRANCISCO MARQUEZ APRNA S 271.3 GLUCOSE INTOLERANCE 09/22/2013 JIMMY BUROGS SHAHNAZ S V05.8 ZOSTAVAX DX 09/22/2013 MAX DHILLON APRN T 271.3 GLUCOSE INTOLERANCE 09/22/2013 MAX DHILLON APRN T V05.8 ZOSTAVAX DX 09/22/2013 MAX DHILLON APRN T 271.3 GLUCOSE INTOLERANCE 09/22/2013 MAX DHILLON APRN T V05.8 ZOSTAVAX DX 09/22/2013 HAZEL DO, MIKE K 271.3 GLUCOSE INTOLERANCE 09/22/2013 HAZEL DO, MIKE K V05.8 ZOSTAVAX DX 09/22/2013 CAROLINE MENDOZA MD 271.3 GLUCOSE INTOLERANCE 09/22/2013 CAROLINE MENDOZA MD V05.8 ZOSTAVAX DX 09/22/2013 CAROLINE MENDOZA MD 271.3 GLUCOSE INTOLERANCE 09/22/2013 CAROLINE MENDOZA MD V05.8 ZOSTAVAX DX 09/22/2013 ELIZABETH ROLDAN, SHARIF Menjivar 271.3 GLUCOSE INTOLERANCE 09/22/2013 SHARIF JOHNSON MD [...] BURGOS DESI CONRAD V05.8 ZOSTAVAX DX 09/22/2013 SHARIF JOHNSON MD 271.3 GLUCOSE INTOLERANCE 09/22/2013 SHARIF JOHNSON MD V05.8 ZOSTAVAX DX 09/22/2013 SHARIF JOHNSON MD 271.3 GLUCOSE INTOLERANCE 09/22/2013 SHARIF JOHNSON MD V05.8 ZOSTAVAX DX 09/22/2013 JOVANNI BURGOS DESI HOUSTON 271.3 GLUCOSE INTOLERANCE 09/22/2013 JOVANNI BURGOS DESI CONRAD V05.8 ZOSTAVAX DX 09/22/2013 SHARIF JOHNSON MD 271.3 GLUCOSE INTOLERANCE 09/22/2013 SHARIF JOHNSON MD V05.8 ZOSTAVAX DX 09/22/2013 SHARIF JOHNSON MD 271.3 GLUCOSE INTOLERANCE 09/22/2013 SHARIF JOHNSON MD V05.8 ZOSTAVAX DX 09/22/2013 MASSIEL VEGA 271.3 GLUCOSE INTOLERANCE 09/22/2013 MASSIEL VEGA V05.8 ZOSTAVAX DX 09/22/2013 HAZEL DO, MIKE K 271.3 GLUCOSE INTOLERANCE 09/22/2013 HAZEL DO, MIKE K V05.8 ZOSTAVAX DX 09/22/2013 ELIZABETH ROLDAN, SHARIF Menjivar 271.3 GLUCOSE INTOLERANCE 09/22/2013 ELIZABETH ROLDAN, SHARIF Menjivar V05.8 ZOSTAVAX DX 09/22/2013 SHANIQUE VEGA MD 271.3 GLUCOSE INTOLERANCE 09/22/2013 SHANIQUE VEGA MD V05.8 ZOSTAVAX DX 09/22/2013 SHARIF JOHNSON MD 271.3 GLUCOSE INTOLERANCE 09/22/2013 SHARIF JOHNSON MD V05.8 ZOSTAVAX DX 09/22/2013 SHARIF JOHNSON MD 271.3 GLUCOSE INTOLERANCE 09/22/2013 SHARIF JOHNSON MD V05.8 ZOSTAVAX DX 09/22/2013 SHANIQUE [...] SHARIF JOHNSON MD N 786.07 WHEEZING 11/09/2013 SHAIRF JOHNSON MD N 786.2 COUGH 11/09/2013 SHARIF [...] MD V65.42 COUNSELING - SMOKING CESSATION 11/09/2013 BAIGLUDA WOODSNDESI 786.07 WHEEZING 11/09/2013 JOVANNI WOODSN, DESI CONRAD [...] COUNSELING - SMOKING CESSATION 11/09/2013 MASSIEL VEGA 786.07 WHEEZING 11/09/2013 MASSIEL VEGA M 786.2 COUGH 11/09/2013 MASSIEL VEGA V65.42 COUNSELING - SMOKING CESSATION 11/09/2013 HAZEL DO, MIKE K 786.07 WHEEZING 11/09/2013 HAZEL DO, IMKE K 786.2 COUGH 11/09/2013 HAZEL DO, MIKE [...] 11/09/2013 SHARIF JOHNSON MD 786.2 COUGH 11/09/2013 ELIZABETH ROLDAN, SHARIF Menjivar V65.42 COUNSELING - SMOKING CESSATION 11/09/2013 SHANIQUE VEGA MD 786.07 WHEEZING 11/09/2013 SHANIQUE VEGA MD 786.2 COUGH 11/09/2013 SHANIQUE VEGA MD V65.42 COUNSELING - SMOKING CESSATION 11/12/2013 JIMMY EHS ENGINEER, SHAHNAZ S 486 PNEUMONIA UNSPECIFIED 11/12/2013 JACQUIE EHS ENGINEER, MAX T 486 PNEUMONIA UNSPECIFIED 11/12/2013 JACQUIE EHS ENGINEER, MAX T 486 PNEUMONIA UNSPECIFIED 11/12/2013 IILR VILLALOBOS, MIEK K 486 PNEUMONIA UNSPECIFIED 11/12/2013 REJI ROLDAN, [...] ROLDAN, SHARIF N 486 PNEUMONIA UNSPECIFIED 11/12/2013 JANINA SCHREIBER, MASSIEL M 486 PNEUMONIA UNSPECIFIED 11/12/2013 ILIR VILLALOBOS, MIKE K 486 PNEUMONIA UNSPECIFIED 11/12/2013 ELIZABETH ROLDAN, SHARIF Menjivar 486 PNEUMONIA UNSPECIFIED 11/12/2013 SHANIQUE VEGA MD 486 PNEUMONIA UNSPECIFIED 11/12/2013 SHARIF JOHNSON MD N 486 PNEUMONIA UNSPECIFIED 11/12/2013 SHARIF JOHNSON MD N 486 PNEUMONIA UNSPECIFIED 11/12/2013 SHANIQUE VEGA MD 486 PNEUMONIA UNSPECIFIED 11/14/2013 SHARIF JOHNSON MD Ot 272.4 HYPERLIPIDEMIA NEC/NOS 11/14/2013 ELIZABETH MD, SHARIF N Ot 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 11/14/2013 SHARIF JOHNSON MD N Ot 401.9 HYPERTENSION NOS 11/14/2013 SHARIF JOHNSON MD N Ot 491.21 OBSTR CHRONIC BRONCHITIS, W (ACUTE) EXAC 11/14/2013 SHARIF JOHNSON MD N Ot 715.90 OSTEOARTHROS NOS-UNSPEC 12/11/2013 MAX DHILLON APRN 466.0 BRONCHITIS, ACUTE 12/11/2013 MAX DHILLON APRN 466.0 BRONCHITIS, ACUTE 12/11/2013 MIKE HAZEL DO 466.0 BRONCHITIS, ACUTE 12/11/2013 CAROLINE MENDOZA MD [...] JOHNSON MD N 466.0 BRONCHITIS, ACUTE 12/11/2013 ELIZABETH ROLDAN SHARIF N 466.0 BRONCHITIS, ACUTE 12/11/2013 MASSIEL VEGA 466.0 BRONCHITIS, ACUTE 12/11/2013 MIKE HAZEL DO K 466.0 BRONCHITIS, ACUTE 12/11/2013 SHARIF JOHNSON MD N 466.0 BRONCHITIS, ACUTE 12/11/2013 SHANIQUE VEGA MD 466.0 BRONCHITIS, ACUTE 12/11/2013 GWEN JOHNSON MDY N 466.0 BRONCHITIS, ACUTE 12/11/2013 SHARIF JOHNSON MD N 466.0 BRONCHITIS, ACUTE 12/11/2013 GARY ROLDAN SHANIQUE 466.0 BRONCHITIS, ACUTE 12/15/2013 MAX DHILLON APRN [...] MD N 786.05 SHORTNESS OF BREATH 12/15/2013 SAHRIF JOHNSON MD N 719.07 EDEMA FOOT 12/15/2013 SHARIF JOHNSON MD 785.2 MURMURS, UNDIAGNOSED CARDIAC 12/15/2013 SHARIF JOHNSON MD N 786.05 SHORTNESS OF BREATH 12/15/2013 JOVANNI BURGOS DESI CONRAD 719.07 EDEMA FOOT 12/15/2013 JOVANNI BURGOS DESI CONRAD 785.2 MURMURS, UNDIAGNOSED CARDIAC 12/15/2013 JOVANNI BURGOS DESI SINGHH 786.05 SHORTNESS OF BREATH 12/15/2013 SHARIF JOHNSON MD N 719.07 EDEMA FOOT 12/15/2013 SHARIF JOHNSON MD N 785.2 MURMURS, UNDIAGNOSED CARDIAC 12/15/2013 SHARIF JOHNSON MD N 786.05 SHORTNESS OF BREATH 12/15/2013 SHARIF JOHNSON MD N 719.07 EDEMA FOOT 12/15/2013 SHARIF OJHNSON MD N 785.2 MURMURS, UNDIAGNOSED CARDIAC 12/15/2013 SHARIF JOHNSON MD N 786.05 SHORTNESS OF BREATH 12/15/2013 MASSIEL VEGA 719.07 EDEMA FOOT 12/15/2013 MASSIEL VEGA 785.2 MURMURS, UNDIAGNOSED CARDIAC 12/15/2013 MASSIEL VEGA 786.05 SHORTNESS OF BREATH 12/15/2013 HAZEL DO, MIKE K 719.07 EDEMA FOOT 12/15/2013 HAZEL DO, MIKE K 785.2 MURMURS, UNDIAGNOSED CARDIAC 12/15/2013 ILIR VILLALOBOS, MIKE K 786.05 SHORTNESS OF BREATH 12/15/2013 ELIZABETH ROLDAN, SHARIF N 719.07 EDEMA FOOT 12/15/2013 SHARIF JOHNSON [...] VEGA MD 786.05 SHORTNESS OF BREATH 12/30/2013 MIKE HAZEL DO K 782.3 Edema 12/30/2013 CAROLINE MENDOZA MD 782.3 Edema 12/30/2013 CAROLINE MENDOZA MD 782.3 Edema 12/30/2013 SHARIF JOHNSON MD N 782.3 Edema 12/30/2013 SHARIF JOHNSON MD N 782.3 Edema 12/30/2013 SHARIF JOHNSON MD N 782.3 Edema 12/30/2013 SHARIF JOHNSON MD N 782.3 Edema 12/30/2013 SHARIF JOHNSON MD N 782.3 Edema 12/30/2013 DESI BAIG APRN 782.3 Edema 12/30/2013 ELIZABETH ROLDAN, SHARIF N 782.3 Edema 12/30/2013 ELIZABETH ROLDAN, SHARIF N 782.3 Edema 12/30/2013 DESI BAIG APRN 782.3 Edema 12/30/2013 ELIZABETH ROLDAN, SHARIF N 782.3 Edema 12/30/2013 ELIZABETH ROLDAN, SHARIF N 782.3 Edema 12/30/2013 MASSIEL VEGA 782.3 Edema 12/30/2013 CHANDA HAZEL DOA Dionne 782.3 Edema 12/30/2013 ELIZABETH ROLDAN, SHARIF N 782.3 Edema 12/30/2013 SHANIQUE VEGA MD 782.3 Edema 12/30/2013 ELIZABETH ROLDAN, SHARIF N 782.3 Edema 12/30/2013 ELIZABETH ROLDAN, SHARIF Menjivar 782.3 Edema 12/30/2013 SHANIQUE VEGA MD 782.3 Edema 05/24/2014 DIANNA MACHADO MD Ot 278.00 05/24/2014 DIANNA MACHADO MD Ot 715.95 05/24/2014 DIANNA MACHADO MD, Ot 721.3 05/24/2014 DIANNA MACHADO MD, Ot 722.52 05/24/2014 DIANNA MACHADO MD Ot 729.1 05/24/2014 DIANNA MACHADO MD Ot V58.69 05/24/2014 DIANNA MACHADO MD Ot V85.33 06/07/2014 ANA DO, RUFINA K [...] MACHADO MD, Ot 722.52 06/28/2014 DIANNA MACHADO MD Ot 729.1 06/28/2014 DIANNA MACHADO MD Ot V58.69 06/28/2014 DIANNA MACHADO MD Ot V85.32 09/15/2014 SHARIF OJHNSON MD 414.00 CORONARY ATHEROSCLEROSIS OF UNSPECIFIED TYPE OF VESSEL [place] OR GRAFT 09/15/2014 SHARIF JOHNSON MD 782.2 LOCALIZED SUPERFICIAL SWELLING MASS OR LUMP 09/15/2014 MASSIEL VEGA M 414.00 CORONARY ATHEROSCLEROSIS OF UNSPECIFIED TYPE OF VESSEL [place] OR GRAFT 09/15/2014 MASSIEL VEGA M 782.2 LOCALIZED SUPERFICIAL SWELLING MASS OR LUMP 09/15/2014 HAZEL DO, MIKE K 414.00 CORONARY ATHEROSCLEROSIS OF UNSPECIFIED TYPE OF VESSEL [place] OR GRAFT 09/15/2014 HAZEL DO, MIKE K 782.2 LOCALIZED SUPERFICIAL SWELLING MASS OR LUMP 09/15/2014 SHARIF JOHNSON MD 414.00 CORONARY ATHEROSCLEROSIS OF UNSPECIFIED TYPE OF VESSEL [place] OR GRAFT 09/15/2014 SHARIF JOHNSON MD 782.2 LOCALIZED SUPERFICIAL SWELLING MASS OR LUMP 09/15/2014 SHANIQUE VEGA MD 414.00 CORONARY ATHEROSCLEROSIS OF UNSPECIFIED TYPE OF VESSEL [place] OR GRAFT 09/15/2014 SHANIQUE VEGA MD 782.2 LOCALIZED SUPERFICIAL SWELLING MASS OR LUMP 09/15/2014 SHARIF JOHNSON MD 414.00 CORONARY ATHEROSCLEROSIS OF UNSPECIFIED TYPE OF VESSEL [place] OR GRAFT 09/15/2014 SHARIF JOHNSON MD 782.2 LOCALIZED SUPERFICIAL SWELLING MASS OR LUMP 09/15/2014 SHARIF JOHNSON MD 414.00 CORONARY ATHEROSCLEROSIS OF UNSPECIFIED TYPE OF VESSEL [place] OR GRAFT 09/15/2014 SHARIF JOHNSON MD 782.2 LOCALIZED SUPERFICIAL SWELLING MASS OR LUMP 09/15/2014 SHANIQUE VEGA MD 414.00 CORONARY ATHEROSCLEROSIS OF UNSPECIFIED TYPE OF VESSEL [place] OR GRAFT 09/15/2014 SHANIQUE VEGA MD2.2 LOCALIZED SUPERFICIAL SWELLING MASS OR LUMP 09/30/2014 DIANNA MACHADO MD Ot 278.00 09/30/2014 DIANNA MACHADO MD Ot 715.95 09/30/2014 DIANNA MACHADO MD Ot 721.3 09/30/2014 DIANNA MACHADO MD, Ot 729.1 09/30/2014 DIANNA MACHADO MD Ot [...] MIKE K Ot 715.35 11/02/2014 HAZEL DO, MIEK K Ot 780.97 11/02/2014 HAZEL DO, MIKE [...] GARY ROLDAN, SHANIQUE Funk Ot 719.41 11/05/2014 SHANIQUE VEGA MD Ot 780.79 11/05/2014 SHANIQUE VEGA MD Ot V13.02 11/11/2014 JAJA ROLDAN, EMANUEL A Ot 787.02 11/26/2014 SHARIF JOHNSON MD 787.02 NAUSEA ALONE [...] FACC, ALI FACP CCDS Ot 440.0 12/28/2014 BISHNU ROLDAN FACC, ALI FACP CCDS Ot 440.1 12/28/2014 BISHNU ROLDAN FACC, ALI FACP CCDS Ot 440.20 12/28/2014 BISHNU ROLDAN [facility] CCDS Ot 440.4 12/28/2014 BISHNU ROLDAN [facility] CCDS Ot 441.4 12/28/2014 BISHNU ROLDAN [facility] CCDS Ot 786.09 12/28/2014 BISHNU ROLDAN [facility], [facility] CCDS Ot V58.69 02/07/2015 SASHA [...] ROLDAN, MYRNA E Ot 721.90 02/10/2015 SASHA RLODAN, MYRNA E Ot 733.00 02/10/2015 SASHA ROLDAN, [...] ROLDAN, MYRNA E Ot 715.31 02/13/2015 SASHA ROLDNA, MYRNA E Ot 715.35 02/13/2015 SASHA ROLDAN, [...] SASHA ROLDAN, MYRNA E Ot 427.31 02/14/2015 SASHA ROLDAN, MYRNA E Ot 496 02/14/2015 SASHA [...] ROLDAN, MYRNA E Ot 786.09 02/17/2015 SASHA RLODAN, MYNRA E Ot 788.43 02/17/2015 SASHA ROLDAN, MYRNA E Ot V15.82 02/17/2015 SASHA ROLDAN, MYRNA E Ot V45.81 02/17/2015 SASHA ROLDAN, MYRNA E Ot V46.2 02/17/2015 SASHA ROLDAN, MYRNA E Ot V57.89 02/17/2015 Ot 388.30 02/17/2015 Ot 780.4 02/17/2015 Ot 796.2 02/17/2015 Ot 799.51 02/17/2015 CAROLINE MENDOZA MD Ot 338.29 02/17/2015 CAROLINE MENDOZA MD Ot 722.6 02/17/2015 CAROLINE MENDOZA MD Ot 724.2 02/17/2015 CAROLINE MENDOZA MD Ot 724.4 02/17/2015 MAX DHILLON Ot 401.1 02/17/2015 MAX DHILLON Ot 424.1 02/17/2015 MAX DHILLON INFECTION CONTROL MANAGER Ot 785.2 02/17/2015 MAX DHILLON INFECTION CONTROL MANAGER Ot 786.05 02/17/2015 ANDRE HERNANDEZ DO Elroy Ot 715.91 02/17/2015 ANDRE HERNANDEZ DO [place] Ot 727.61 02/17/2015 DIANNA MACHADO MD Ot [...] DIANNA MACHADO MD Ot V58.69 02/17/2015 DIANNA MACAHDO MD Ot V85.33 02/17/2015 GARY ROLDAN, SHANIQUE [...] MYRNA E Ot 285.9 02/17/2015 SASHA ROLDAN, MYRAN E Ot 300.00 02/17/2015 SASHA ROLDAN, MYRNA [...] MYRNA E Ot 715.31 02/17/2015 SASHA ROLDAN, MYNRA E Ot 715.35 02/17/2015 SASHA ROLDAN, MYRNA [...] SASHA ROLDAN, MYRNA E Ot 496 02/21/2015 SASAH ROLDAN, MYRNA E Ot 530.81 02/21/2015 SASHA [...] MYRNA E Ot 715.31 02/22/2015 SASHA ROLDAN, YMRNA E Ot 715.35 02/22/2015 SASHA ROLDAN, MYRNA [...] MYRNA E Ot V45.81 02/23/2015 SASHA ROLDAN, MYRNA E Ot V46.2 02/23/2015 SASHA ROLDAN, MYRNA [...] REJI ROLDAN, CAROLINE Magaña Ot 722.6 02/27/2015 REJI ROLDAN, CAROLINE Magaña Ot 724.2 02/27/2015 CAROLINE MENDOZA MD Ot 724.4 02/27/2015 MAX DHILLON Andre INFECTION CONTROL MANAGER Ot 401.1 02/27/2015 JACQUIE MAX Andre INFECTION CONTROL MANAGER Ot 424.1 02/27/2015 JACQUIEMAX INFECTION CONTROL MANAGER Ot 785.2 02/27/2015 JACQUIE MAX Andre INFECTION CONTROL MANAGER Ot 786.05 02/27/2015 MARYANDRE Garcia DO Ot 715.91 02/27/2015 ANDRE HERNANDEZ DO Ot 727.61 02/27/2015 DIANNA MACHADO MD Ot 278.00 02/27/2015 DIANNA MACHADO MD Ot 721.3 02/27/2015 DIANNA MACHADO MD Ot 724.6 02/27/2015 DIANNA MACHADO MD Ot 729.1 02/27/2015 DIANNA MACHADO MD Ot V58.69 02/27/2015 DIANNA MAHCADO MD Ot V85.35 02/27/2015 DIANNA MACHADO MD [...] ELIZABETH ROLDAN, SHARIF N Ot 440.20 03/11/2015 ELIZAEBTH ROLDAN, SHARIF N Ot 441.4 03/11/2015 ELIZABETH [...] SHARIF N Ot 272.4 03/15/2015 ELIZABETH ROLDAN, SHARFI N Ot 275.2 03/15/2015 ELIZABETH ROLDAN, SHARIF [...] SHARIF N Ot 722.6 03/15/2015 ELIZABETH ROLDAN, HSARIF N Ot 780.1 03/15/2015 ELIZABETH ROLDAN, SHARIF [...] ROLDAN, SHARIF N Ot 428.0 03/15/2015 ELIZABETH RLODAN, SHARIF N Ot 428.33 03/15/2015 ELIZABETH ROLDAN, [...] CAROLINE MENDOZA MD Ot 724.4 12/07/2015 MAX DHILLON INFECTION CONTROL MANAGER Ot 401.1 12/07/2015 MAX DHILLON INFECTION CONTROL MANAGER Ot 424.1 12/07/2015 MAX DHILLON INFECTION CONTROL MANAGER Ot 785.2 12/07/2015 MAX DHILLON Ot 786.05 12/07/2015 ANDRE HERNANDEZ DO Ot 715.91 12/07/2015 ANDRE HERNANDEZ DO Ot 727.61 12/07/2015 DIANNA MACHADO MD Ot 278.00 12/07/2015 DIANNA MACHADO MD Ot 721.3 12/07/2015 DIANNA MACHADO MD Ot 724.6 12/07/2015 DIANNA MACHADO MD Ot [...] GARY ROLDAN, SHANIQUE Funk Ot 791.9 12/07/2015 CHARLES ROLDAN, TARA Arellano Ot M16.11 05/16/2016 PRUDENCE SHAW MD Ot E11.9 TYPE 2 DIABETES MELLITUS WITHOUT COMPLIC 05/16/2016 PRUDENCE SHAW MD Ot 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 05/16/2016 PRUDENCE SHAW MD Ot I10 ESSENTIAL (PRIMARY) HYPERTENSION 05/16/2016 PRUDENCE SHAW MD, Ot I25.10 ATHSCL HEART DISEASE OF [place] CORONARY 05/16/2016 PRUDENCE SHAW MD Ot I71.4 ABDOMINAL AORTIC ANEURYSM, WITHOUT RUPTU 05/16/2016 PRUDENCE SHAW MD Ot J44.9 CHRONIC OBSTRUCTIVE PULMONARY DISEASE, U 05/16/2016 PRUDENCE SHAW MD, Ot K21.9 GASTRO-ESOPHAGEAL REFLUX DISEASE WITHOUT 05/16/2016 PRUDENCE SHAW MD Ot K59.00 CONSTIPATION, UNSPECIFIED 05/16/2016 PRUDENCE SHAW MD Ot Z87.891 PERSONAL HISTORY OF NICOTINE DEPENDENCE 05/16/2016 PRUDENCE SHAW MD Ot 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 BYPASS GRAFT 11/22/2016 LUL NORWOOD MD, Ot 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 (ISD) 11/22/2016 LUL NORWOOD MD, Ot R32 UNSPECIFIED URINARY INCONTINENCE 11/22/2016 LUL [...] Ot N32.81 OVERACTIVE BLADDER 11/28/2016 LUL NORWOOD MD, Ot 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 (ISD) 11/28/2016 LUL NORWOOD MD Ot 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 11/28/2016 LUL NORWOOD MD, Ot Z79.84 HALFWAY (CURRENT) USE OF ORAL HYPOGLYC 11/29/2016 LUL NORWOOD MD Ot E11.9 TYPE 2 DIABETES MELLITUS WITHOUT COMPLIC 11/29/2016 LUL NORWOOD MD, Ot N32.81 OVERACTIVE BLADDER 11/29/2016 LUL NORWOOD MD, Ot 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 (ISD) 11/29/2016 LUL NORWOOD MD, Ot 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 11/29/2016 LUL NORWOOD MD, Ot Z79.84 HOSPICE CLINICAL MARKETER (CURRENT) USE OF ORAL HYPOGLYC 12/03/2016 LUL NORWOOD MD Ot E11.9 TYPE 2 DIABETES MELLITUS WITHOUT COMPLIC 12/03/2016 LUL NORWOOD MD, Ot N32.81 OVERACTIVE BLADDER 12/03/2016 LUL NORWOOD MD, Ot 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 (ISD) 12/03/2016 LUL NORWOOD MD, Ot 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 12/03/2016 LUL NORWOOD MD, Ot Z79.84 HOSPICE CLINICAL MARKETER (CURRENT) USE OF ORAL HYPOGLYC 02/07/2017 CUCO ROLDAN, LUL A Ot N32.81 OVERACTIVE BLADDER 02/07/2017 CUCO ROLDAN, LUL A Ot 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 (ISD) 02/07/2017 CUCO ROLDAN, LUL Garcia Ot 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 02/07/2017 CUCO ROLDAN, LUL A Ot Z01.818 ENCOUNTER FOR OTHER PREPROCEDURAL EXAMIN 02/12/2017 CUCO ROLDAN, LUL A Ot N32.81 OVERACTIVE BLADDER 02/12/2017 CUCO ROLDAN, LUL A Ot 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 (ISD) 02/12/2017 CUCO ROLDAN, LUL A Ot 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 02/13/2017 CUCO ROLDAN, LUL A Ot N32.81 OVERACTIVE BLADDER 02/13/2017 CUCO ROLDAN, LUL A Ot 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 (ISD) 02/13/2017 CUCO ROLDAN, LUL A Ot 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 02/18/2017 CUCO ROLDAN, LUL A Ot N32.81 OVERACTIVE BLADDER 02/18/2017 CUCO ROLDAN, LUL A Ot 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 (ISD) 02/18/2017 CUCO ROLDAN, LUL Jose Ot 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 10/08/2017 BISHNU ROLDAN FACC, CHELLE FACP CCDS Ot E78.5 HYPERLIPIDEMIA, UNSPECIFIED 10/08/2017 BISHNU ROLDAN FACC, ALI FACP CCDS Ot I10 ESSENTIAL (PRIMARY) HYPERTENSION 10/08/2017 BISHNU ROLDAN FACC, ALI FACP CCDS Ot I25.10 ATHSCL HEART DISEASE OF [place] CORONARY 10/08/2017 BISHNU ROLDAN FACC, ALI FACP CCDS Ot I48.0 PAROXYSMAL ATRIAL FIBRILLATION 10/08/2017 BISHNU ROLDAN FACC, ALI FACP CCDS Ot I65.29 OCCLUSION AND STENOSIS OF UNSPECIFIED CA 10/08/2017 BISHNU ROLDAN FACC, ALI FACP CCDS Ot R06.02 SHORTNESS OF BREATH 10/08/2017 BISHNU ROLDAN FACC, ALI FACP CCDS Ot E78.5 HYPERLIPIDEMIA, UNSPECIFIED 10/08/2017 BISHNU ROLDAN FACC, ALI FACP CCDS Ot I10 ESSENTIAL (PRIMARY) HYPERTENSION 10/08/2017 CHELLE GOETZ MD, FACC FACP CCDS Ot I25.10 ATHSCL HEART DISEASE OF [place] CORONARY 10/08/2017 CHELLE GOETZ MD, FACC FACP CCDS Ot I48.0 PAROXYSMAL ATRIAL FIBRILLATION 10/08/2017 CHELLE GOETZ MD, FACC FACP CCDS Ot I65.29 OCCLUSION AND STENOSIS OF UNSPECIFIED CA 10/15/2017 CHELLE GOETZ MD, FACC FACP CCDS Ot I11.0 HYPERTENSIVE HEART DISEASE WITH HEART FA 10/15/2017 CHELLE GOETZ MD, FACC FACP CCDS Ot I25.10 ATHSCL HEART DISEASE OF [place] CORONARY 10/15/2017 CHELLE GOETZ MD, FACC FACP CCDS Ot I48.91 UNSPECIFIED ATRIAL FIBRILLATION 10/15/2017 CHELLE GOETZ MD, FACC FACP CCDS Ot I48.92 UNSPECIFIED ATRIAL FLUTTER 10/15/2017 CHELLE GOETZ MD, FACC FACP CCDS Ot I50.33 ACUTE ON CHRONIC DIASTOLIC (CONGESTIVE) 10/15/2017 CHELLE GOETZ MD, FACC FACP CCDS Ot 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 10/15/2017 CHELLE GOETZ MD, FACC FACP CCDS Ot I70.1 ATHEROSCLEROSIS OF RENAL ARTERY 10/15/2017 CHELLE GOETZ MD, FACC FACP CCDS Ot I71.4 ABDOMINAL AORTIC ANEURYSM, WITHOUT RUPTU 10/15/2017 CHELLE GOETZ MD, FACC FACP CCDS Ot I73.9 PERIPHERAL VASCULAR DISEASE, UNSPECIFIED 10/15/2017 CHELLE GOETZ MD, FACC FACP CCDS Ot J44.9 CHRONIC OBSTRUCTIVE PULMONARY DISEASE, U 10/15/2017 CHELLE GOETZ MD, FACC FACP CCDS Ot Z79.899 OTHER HOSPICE CLINICAL MARKETER (CURRENT) DRUG THERAPY 10/15/2017 CHELLE GOETZ MD, FACC FACP CCDS Ot Z87.891 PERSONAL HISTORY OF NICOTINE DEPENDENCE 10/15/2017 CHELLE GOETZ MD, FACC FACP CCDS Ot Z88.1 ALLERGY STATUS TO OTHER ANTIBIOTIC AGENT 10/15/2017 CHELLE GOETZ MD, FACC FACP CCDS Ot Z88.2 ALLERGY STATUS TO SULFONAMIDES STATUS 10/15/2017 CHELLE GOETZ MD, FACC FACP CCDS Ot Z88.8 ALLERGY STATUS TO OTH DRUG/MEDS/BIOL SUB 10/15/2017 BISHNU MD FACC, ALI FACP CCDS Ot Z91.19 PATIENT'S NONCOMPLIANCE W [facility] 10/15/2017 BISHNU ROLDAN FACC, CHELLE FACP CCDS Ot 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 BYPASS GRAFT 10/15/2017 BISHNU ROLDAN FACC, ALI FACP CCDS Ot Z96.641 PRESENCE OF RIGHT ARTIFICIAL HIP JOINT 10/26/2017 IBSHNU ROLDAN FACC, ALI FACP CCDS Ot E78.4 OTHER HYPERLIPIDEMIA 10/26/2017 BISHNU ROLDAN FACC, ALI FACP CCDS Ot I10 ESSENTIAL (PRIMARY) HYPERTENSION 10/26/2017 BISHNU ROLDAN FACC, ALI FACP CCDS Ot I25.10 ATHSCL HEART DISEASE OF [place] CORONARY 10/26/2017 BISHNU ROLDAN FACC, ALI FACP CCDS Ot I48.0 PAROXYSMAL ATRIAL FIBRILLATION 10/26/2017 BISHNU ROLDAN FACC, ALI FACP CCDS Ot I71.4 ABDOMINAL AORTIC ANEURYSM, WITHOUT RUPTU 10/29/2017 BISHNU ROLDAN FACC ALI FACP CCDS Ot E78.4 OTHER HYPERLIPIDEMIA 10/29/2017 BISHNU ROLDAN FACC, ALI FACP CCDS Ot I10 ESSENTIAL (PRIMARY) HYPERTENSION 10/29/2017 BISHNU ROLDAN FACC, ALI FACP CCDS Ot I25.10 ATHSCL HEART DISEASE OF [place] CORONARY 10/29/2017 BISHNU ROLDAN FACC, CHELLE FACP CCDS Ot I48.0 PAROXYSMAL ATRIAL FIBRILLATION 10/29/2017 BISHNU ROLDAN FACC, ALI FACP CCDS Ot I71.4 ABDOMINAL AORTIC ANEURYSM, WITHOUT RUPTU 10/29/2017 CHELLE GOETZ MD, FACC FACP CCDS Ot E78.5 HYPERLIPIDEMIA, UNSPECIFIED 10/29/2017 BISHNU ROLDAN FACC, ALI FACP CCDS Ot I10 ESSENTIAL (PRIMARY) HYPERTENSION 10/29/2017 BISHNU ROLDAN FACC, ALI FACP CCDS Ot I25.10 ATHSCL HEART DISEASE OF [place] CORONARY 10/29/2017 BISHNU ROLDAN FACC, ALI FACP CCDS Ot I48.0 PAROXYSMAL ATRIAL FIBRILLATION 10/29/2017 BISHNU ROLDAN FACC, ALI FACP CCDS Ot I65.29 OCCLUSION AND STENOSIS OF UNSPECIFIED CA 10/29/2017 CHELLE GOETZ MD, FACC FACP CCDS Ot R06.02 SHORTNESS OF BREATH 10/29/2017 BISHNU MD FACC, ALI FACP CCDS Ot E78.5 HYPERLIPIDEMIA, UNSPECIFIED 10/29/2017 BISHNU ROLDAN FACC, ALI FACP CCDS Ot I10 ESSENTIAL (PRIMARY) HYPERTENSION 10/29/2017 BISHNU ROLDAN FACC, ALI FACP CCDS Ot I25.10 ATHSCL HEART DISEASE OF [place] CORONARY 10/29/2017 BISHNU ROLDAN FACC, ALI FACP CCDS Ot I48.0 PAROXYSMAL ATRIAL FIBRILLATION 10/29/2017 BISHNU ROLDAN FACC, ALI FACP CCDS Ot I65.29 OCCLUSION AND STENOSIS OF UNSPECIFIED CA 11/05/2017 BISHNU ROLDAN FACC, ALI FACP CCDS Ot E78.4 OTHER HYPERLIPIDEMIA 11/05/2017 BISHNU ROLDAN FACC, ALI FACP CCDS Ot I10 ESSENTIAL (PRIMARY) HYPERTENSION 11/05/2017 BISHNU ROLDAN FACC, ALI FACP CCDS Ot I25.10 ATHSCL HEART DISEASE OF [place] CORONARY 11/05/2017 BISHNU HDEZC, ALI FACP CCDS Ot I48.0 PAROXYSMAL ATRIAL FIBRILLATION 11/05/2017 BISHNU HDEZC, ALI FACP CCDS Ot I71.4 ABDOMINAL AORTIC ANEURYSM, WITHOUT RUPTU 11/07/2017 BISHNU ROLDAN FACC, ALI FACP CCDS Ot E78.4 OTHER HYPERLIPIDEMIA 11/07/2017 BISHNU HDEZC, ALI FACP CCDS Ot I10 ESSENTIAL (PRIMARY) HYPERTENSION 11/07/2017 BISHNU HDEZC, ALI FACP CCDS Ot I25.10 ATHSCL HEART DISEASE OF [place] CORONARY 11/07/2017 BISHNU HDEZC, ALI FACP CCDS Ot I48.0 PAROXYSMAL ATRIAL FIBRILLATION 11/07/2017 BISHNU HDEZC, ALI FACP CCDS Ot I71.4 ABDOMINAL AORTIC ANEURYSM, WITHOUT RUPTU 11/08/2017 BISHNU HDEZC, ALI FACP CCDS Ot E78.5 HYPERLIPIDEMIA, UNSPECIFIED 11/08/2017 BISHNU HDEZC, ALI FACP CCDS Ot I10 ESSENTIAL (PRIMARY) HYPERTENSION 11/08/2017 BISHNU HDEZC, ALI FACP CCDS Ot I25.10 ATHSCL HEART DISEASE OF [place] CORONARY 11/08/2017 BISHNU ROLDAN FACC, ALI FACP CCDS Ot I48.0 PAROXYSMAL ATRIAL FIBRILLATION 11/08/2017 BISHNU HDEZC, ALI FACP CCDS Ot I65.29 OCCLUSION AND STENOSIS OF UNSPECIFIED CA 11/08/2017 BISHNU ROLDAN FACC, ALI FACP CCDS Ot R06.02 SHORTNESS OF BREATH 11/08/2017 BISHNU ROLDAN FACC, ALI FACP CCDS Ot E78.5 HYPERLIPIDEMIA, UNSPECIFIED 11/08/2017 BISHNU ROLDAN FACC, ALI FACP CCDS Ot I10 ESSENTIAL (PRIMARY) HYPERTENSION 11/08/2017 BISHNU ROLDAN FACC, ALI FACP CCDS Ot I25.10 ATHSCL HEART DISEASE OF [place] CORONARY 11/08/2017 BISHNU ROLDAN FACC, ALI FACP CCDS Ot I48.0 PAROXYSMAL ATRIAL FIBRILLATION 11/08/2017 BISHNU ROLDAN FACC, ALI FACP CCDS Ot I65.29 OCCLUSION AND STENOSIS OF UNSPECIFIED CA 11/15/2017 BISHNU ROLDAN FACC, ALI FACP CCDS Ot E78.4 OTHER HYPERLIPIDEMIA 11/15/2017 BISHNU ROLDAN FACC, ALI FACP CCDS Ot I10 ESSENTIAL (PRIMARY) HYPERTENSION 11/15/2017 BISHNU ROLDAN FACC, ALI FACP CCDS Ot I25.10 ATHSCL HEART DISEASE OF [place] CORONARY 11/15/2017 BISHNU ROLDAN [facility], ALI FACP CCDS Ot I48.0 PAROXYSMAL ATRIAL FIBRILLATION 11/15/2017 BISHNU ROLDAN FACC, ALI FACP CCDS Ot I71.4 ABDOMINAL AORTIC ANEURYSM, WITHOUT RUPTU 11/20/2017 LUL NORWOOD MD Ot R32 UNSPECIFIED URINARY INCONTINENCE 11/20/2017 LUL NORWOOD MD Ot R33.9 RETENTION OF URINE, UNSPECIFIED 11/20/2017 LUL NORWOOD MD Ot Z01.818 ENCOUNTER FOR OTHER PREPROCEDURAL EXAMIN Procedures Code Description [place] [address] INDIV PSYTX 45/50 MIN 10/22/2012 39576 ROUTINE VENIPUNCTURE 10/24/2012 27470 BMP 10/24/2012 99019 MAGNESIUM 10/24/2012 [id number] GFR CALC (RESULT ONLY) 10/24/2012 2000F BLOOD PRESSURE CHECK 11/14/2012 64462 ROUTINE VENIPUNCTURE 01/15/2013 29000 BMP 01/15/2013 [id number] GFR CALC (RESULT ONLY) 01/15/2013 46238 LIPID PANEL 01/15/2013 68081 ROUTINE VENIPUNCTURE 05/06/2013 87047 A1C (IN-HOUSE) 05/06/2013 35065 CMP 05/06/2013 49299 MAGNESIUM 05/06/2013 [id number] GFR CALC (RESULT ONLY) 05/06/2013 62873 CPK 05/06/2013 29543 PSYTX PT&/FAMILY 45 MINUTES 05/14/2013 78577 OXIMETRY 07/01/2013 J7613 ALBUTEROL UNIT DOSE FORM INHALED 07/01/2013 J2930 SOLUMEDROL INJ 07/02/2013 92276 THERAPUTIC INJ SQ/IM 07/02/2013 35415 OXIMETRY 07/02/2013 2000F BLOOD PRESSURE CHECK 07/02/2013 G0008 FLU ADMINISTRATION ( MEDICARE ONLY) 08/06/2013 22088 OXIMETRY 08/13/2013 48871 ROUTINE VENIPUNCTURE 08/31/2013 88929 GLUCOSE 08/31/2013 25365 LIPID PANEL 08/31/2013 46171 A1C (IN-HOUSE) 09/08/2013 44291 XRAY CHEST 2 VIEW 11/12/2013 59146 MEASURE BLOOD OXYGEN LEVEL 11/12/2013 48617 THERAPUTIC INJ SQ/IM 12/11/2013 J2930 SOLUMEDROL INJ 12/11/2013 53734 A1C (IN-HOUSE) 12/11/2013 95180 ROUTINE VENIPUNCTURE 12/15/2013 02159 EKG, TRACING (IN-HOUSE) 12/15/2013 34192 XRAY CHEST 2 VIEW 12/15/2013 18546 ECHO 2D 12/15/2013 27021 OXIMETRY 12/15/2013 23606 CBC 12/15/2013 [id number] GFR CALC (RESULT ONLY) 12/15/2013 27579 CMP 12/15/2013 95802 MAGNESIUM 12/15/2013 32345 BNP 12/16/2013 35716 ROUTINE VENIPUNCTURE 01/13/2014 00145 OXIMETRY 01/13/2014 7679429 GFR CALC (RESULT ONLY) 01/14/2014 03355 CMP 01/14/2014 83476 MAGNESIUM 01/14/2014 91238 OXIMETRY 01/28/2014 72238 ROUTINE VENIPUNCTURE 03/24/2014 35376 LIPID PANEL 03/24/2014 08309 ROUTINE VENIPUNCTURE 07/02/2014 0761112 GFR CALC (RESULT ONLY) 07/02/2014 17827 CMP 07/02/2014 34970 LIPID PANEL 07/02/2014 20956 [employer] 08/17/2014 83182 US SOFT TISSUE (SPECIFY LOCATION) 09/15/2014 CARDIOLOG CHELLE GOETZ 09/15/2014 G0008 FLU ADMINISTRATION ( MEDICARE ONLY) 09/15/2014 PULMONARY WILL CASPER 09/15/2014 92077 US ABDOMINAL ULTRASOUND, COMPLETE 11/26/2014 44298 LEFT HEART CATH 01/25/2015 81824 US CAROTID DOPPLER 01/25/2015 68651 OXIMETRY 01/25/[address] ANGIO, EXTREMITY, LOWER 02/08/2015 Results Test [...] 06:10 MRSA SCREEN RESULT MRSA ISOLATED NRG Automated blood complete blood count (hemogram) panel - 10/15/17 08:36 Blood leukocytes automated count (number/volume) 12.5 10*3/uL 4.3-11.0 Blood erythrocytes automated count (number/volume) 4.47 10*6/uL 4.35-5.85 Venous blood hemoglobin measurement (mass/volume) 13.3 g/dL 11.5-16.0 Blood hematocrit (volume fraction) 40 % 35-52 Automated erythrocyte mean corpuscular volume 89 [foz_us] 80-99 Automated erythrocyte mean corpuscular hemoglobin (mass per erythrocyte) 30 pg 25-34 Automated erythrocyte mean corpuscular hemoglobin concentration measurement ( mass/volume) 33 g/dL 32-36 Automated erythrocyte distribution width ratio 14.2 % 10.0-14.5 Automated blood platelet count (count/volume) 250 10*3/uL 130-400 Automated blood platelet mean volume measurement 10.0 [foz_us] 7.4-10.4 PT panel in platelet poor plasma by coagulation assay - 10/15/17 08:36 Prothrombin time (PT) in platelet poor plasma by coagulation assay 14.6 s 12.2-14.7 INR in platelet poor plasma or blood by coagulation assay 1.1 0.8-1.4 Activated partial thromboplastin time (aPTT) in platelet poor plasma bycoagulation assay - 10/15/17 08:36 Activated partial thromboplastin time (aPTT) in platelet poor plasma bycoagulation assay 32 s 24-35 Comprehensive metabolic panel - 10/15/17 08:36 Serum or plasma sodium measurement (moles/volume) 139 mmol/L 135-145 Serum or plasma potassium measurement (moles/volume) 4.2 mmol/L 3.6-5.0 Serum or plasma chloride measurement (moles/volume) 105 mmol/L 98-107 Carbon dioxide 24 mmol/L 21-32 Serum or plasma anion gap determination (moles/volume) 10 mmol/L 5-14 Serum or plasma urea nitrogen measurement (mass/volume) 19 mg/dL 7-18 Serum or plasma creatinine measurement (mass/volume) 0.82 mg/dL 0.60-1.30 Serum or plasma urea nitrogen/creatinine mass ratio 23 NRG Serum or plasma creatinine measurement with calculation of estimated glomerular filtration rate > NRG Serum or plasma glucose measurement (mass/volume) 109 mg/dL 70-105 Serum or plasma calcium measurement (mass/volume) 9.4 mg/dL 8.5-10.1 Serum or plasma total bilirubin measurement (mass/volume) 0.8 mg/dL 0.1-1.0 Serum or plasma alkaline phosphatase measurement (enzymatic activity/volume) 84 U/L 40-136 Serum or plasma aspartate aminotransferase measurement (enzymatic activity/ volume) 16 U/L 5-34 Serum or plasma alanine aminotransferase measurement (enzymatic activity/volume ) 20 U/L 0-55 Serum or plasma protein measurement (mass/volume) 7.1 g/dL 6.4-8.2 Serum or plasma albumin measurement (mass/volume) 3.9 g/dL 3.2-4.5 Lipid 1996 panel - 10/15/17 08:36 Serum or plasma triglyceride measurement (mass/volume) 60 mg/dL <150 Serum or plasma cholesterol measurement (mass/volume) 139 mg/dL < 200 Serum or plasma cholesterol in HDL measurement (mass/volume) 45 mg/ dL 40-60 Cholesterol in LDL [mass/volume] in serum or plasma by direct assay 73 mg/dL 1-129 Serum or plasma cholesterol in VLDL measurement (mass/volume) 12 mg/ dL 5-40 Methicillin resistant Staphylococcus aureus (MRSA) screening culture - 08:36 Methicillin resistant Staphylococcus aureus (MRSA) screening culture NEG NRG Capillary blood glucose measurement by glucometer (mass/volume) - 11/26/17 07: 34 Capillary blood glucose measurement by glucometer (mass/volume) 133 mg/dL 70-110 Complete blood count (CBC) with automated white blood cell (WBC) differential - 11/26/17 13:04 Blood leukocytes automated count (number/volume) 10.7 10*3/uL 4.3-11.0 Blood erythrocytes automated count (number/volume) 4.48 10*6/uL 4.35-5.85 Venous blood hemoglobin measurement (mass/volume) 13.4 g/dL 11.5-16.0 Blood hematocrit (volume fraction) 40 % 35-52 Automated erythrocyte mean corpuscular volume 90 [foz_us] 80-99 Automated erythrocyte mean corpuscular hemoglobin (mass per erythrocyte) 30 pg 25-34 Automated erythrocyte mean corpuscular hemoglobin concentration measurement ( mass/volume) 33 g/dL 32-36 Automated erythrocyte distribution width ratio 14.3 % 10.0-14.5 Automated blood platelet count (count/volume) 215 10*3/uL 130-400 Automated blood platelet mean volume measurement 9.9 [foz_us] 7.4-10.4 Automated blood neutrophils/100 leukocytes 77 % 42-75 Automated blood lymphocytes/100 leukocytes 15 % 12-44 Blood monocytes/100 leukocytes 6 % 0-12 Automated blood eosinophils/100 leukocytes 1 % 0-10 Automated blood basophils/100 leukocytes 0 % 0-10 Blood neutrophils automated count (number/volume) 8.3 10*3 1.8-7.8 Blood lymphocytes automated count (number/volume) 1.7 10*3 1.0-4.0 Blood monocytes automated count (number/volume) 0.6 10*3 0.0-1.0 Automated eosinophil count 0.1 10*3/uL 0.0-0.3 Automated blood basophil count (count/volume) 0.0 10*3/uL 0.0-0.1 Whole blood basic metabolic panel - 11/26/17 13:04 Serum or plasma sodium measurement (moles/volume) 137 mmol/L 135-145 Serum or plasma potassium measurement (moles/volume) 4.1 mmol/L 3.6-5.0 Serum or plasma chloride measurement (moles/volume) 104 mmol/L 98-107 Carbon dioxide 24 mmol/L 21-32 Serum or plasma anion gap determination (moles/volume) 9 mmol/L 5-14 Serum or plasma urea nitrogen measurement (mass/volume) 11 mg/dL 7-18 Serum or plasma creatinine measurement (mass/volume) 0.74 mg/dL 0.60-1.30 Serum or plasma urea nitrogen/creatinine mass ratio 15 NRG Serum or plasma creatinine measurement with calculation of estimated glomerular filtration rate > NRG Serum or plasma glucose measurement (mass/volume) 118 mg/dL 70-105 Serum or plasma calcium measurement (mass/volume) 9.0 mg/dL 8.5-10.1 Influenza virus A and B antigen detection - 11/26/17 17:19 FLU RESULT NEGATIVE FOR INFLUENZA A AND B ANTIGENS BY IA NRG Complete blood count (CBC) with automated white blood cell (WBC) differential - 11/26/17 17:32 Blood leukocytes automated count (number/volume) 15.7 10*3/uL 4.3-11.0 Blood erythrocytes automated count (number/volume) 4.40 10*6/uL 4.35-5.85 Venous blood hemoglobin measurement (mass/volume) 13.5 g/dL 11.5-16.0 Blood hematocrit (volume fraction) 40 % 35-52 Automated erythrocyte mean corpuscular volume 90 [foz_us] 80-99 Automated erythrocyte mean corpuscular hemoglobin (mass per erythrocyte) 31 pg 25-34 Automated erythrocyte mean corpuscular hemoglobin concentration measurement ( mass/volume) 34 g/dL 32-36 Automated erythrocyte distribution width ratio 14.3 % 10.0-14.5 Automated blood platelet count (count/volume) 216 10*3/uL 130-400 Automated blood platelet mean volume measurement 10.1 [foz_us] 7.4-10.4 Automated blood neutrophils/100 leukocytes 88 % 42-75 Automated blood lymphocytes/100 leukocytes 5 % 12-44 Blood monocytes/100 leukocytes 7 % 0-12 Automated blood eosinophils/100 leukocytes 0 % 0-10 Automated blood basophils/100 leukocytes 0 % 0-10 Blood neutrophils automated count (number/volume) 13.9 10*3 1.8-7.8 Blood lymphocytes automated count (number/volume) 0.8 10*3 1.0-4.0 Blood monocytes automated count (number/volume) 1.1 10*3 0.0-1.0 Automated eosinophil count 0.0 10*3/uL 0.0-0.3 Automated blood basophil count (count/volume) 0.0 10*3/uL 0.0-0.1 PT panel in platelet poor plasma by coagulation assay - 11/26/17 17:32 Prothrombin time (PT) in platelet poor plasma by coagulation assay 14.5 s 12.2-14.7 INR in platelet poor plasma or blood by coagulation assay 1.1 0.8-1.4 Activated partial thromboplastin time (aPTT) in platelet poor plasma bycoagulation assay - 11/26/17 17:32 Activated partial thromboplastin time (aPTT) in platelet poor plasma bycoagulation assay 30 s 24-35 Blood lactic acid measurement (moles/volume) - 11/26/17 17:32 Blood lactic acid measurement (moles/volume) 1.13 mmol/L 0.50-2.00 Comprehensive metabolic panel - 11/26/17 17:32 Serum or plasma sodium measurement (moles/volume) 136 mmol/L 135-145 Serum or plasma potassium measurement (moles/volume) 4.1 mmol/L 3.6-5.0 Serum or plasma chloride measurement (moles/volume) 100 mmol/L 98-107 Carbon dioxide 27 mmol/L 21-32 Serum or plasma anion gap determination (moles/volume) 9 mmol/L 5-14 Serum or plasma urea nitrogen measurement (mass/volume) 10 mg/dL 7-18 Serum or plasma creatinine measurement (mass/volume) 0.78 mg/dL 0.60-1.30 Serum or plasma urea nitrogen/creatinine mass ratio 13 NRG Serum or plasma creatinine measurement with calculation of estimated glomerular filtration rate > NRG Serum or plasma glucose measurement (mass/volume) 108 mg/dL 70-105 Serum or plasma calcium measurement (mass/volume) 9.0 mg/dL 8.5-10.1 Serum or plasma total bilirubin measurement (mass/volume) 0.7 mg/dL 0.1-1.0 Serum or plasma alkaline phosphatase measurement (enzymatic activity/volume) 68 U/L 40-136 Serum or plasma aspartate aminotransferase measurement (enzymatic activity/ volume) 16 U/L 5-34 Serum or plasma alanine aminotransferase measurement (enzymatic activity/volume ) 17 U/L 0-55 Serum or plasma protein measurement (mass/volume) 6.6 g/dL 6.4-8.2 Serum or plasma albumin measurement (mass/volume) 3.7 g/dL 3.2-4.5 Serum or plasma troponin i.cardiac measurement (mass/volume) - 11/26/17 17:32 Serum or plasma troponin i.cardiac measurement (mass/volume) < ng/ mL <0.30 Serum or plasma C reactive protein measurement (mass/volume) - 11/26/17 17:32 Serum or plasma C reactive protein measurement (mass/volume) 0.61 mg /dL 0.00-0.50 Blood manual differential performed detection - 11/26/17 17:32 Blood monocytes/100 leukocytes 5 % NRG Manual blood segmented neutrophils/100 leukocytes 81 % NRG Blood band neutrophils/100 leukocytes 12 % NRG Manual blood lymphocytes/100 leukocytes 1 % NRG Manual eosinophils/100 leukocytes in nose 1 % NRG Manual blood basophils/100 leukocytes 0 % NRG Blood erythrocyte morphology finding identification NORMAL NRG Complete urinalysis with reflex to culture - 11/26/17 17:50 Urine color determination GABRIELA NRG Urine clarity determination SLIGHTLY CLOUDY NRG Urine pH measurement by test strip 8 5-9 Specific gravity of urine by test strip 1.010 1.016- 1.022 Urine protein assay by test strip, semi-quantitative 2+ NEGATIVE Urine glucose detection by automated test strip NEGATIVE NEGATIVE Erythrocytes detection in urine sediment by light microscopy 5+ NEGATIVE Urine ketones detection by automated test strip NEGATIVE NEGATIVE Urine nitrite detection by test strip NEGATIVE NEGATIVE Urine total bilirubin detection by test strip NEGATIVE NEGATIVE Urine urobilinogen measurement by automated test strip (mass/volume) NORMAL NORMAL Urine leukocyte esterase detection by dipstick 3+ NEGATIVE Automated urine sediment erythrocyte count by microscopy (number/high power field) > [HPF] NRG Automated urine sediment leukocyte count by microscopy (number/high power field ) [HPF] NRG Bacteria detection in urine sediment by light microscopy TRACE NRG Crystals detection in urine sediment by light microscopy NONE NRG Casts detection in urine sediment by light microscopy NONE NRG Mucus detection in urine sediment by light microscopy NEGATIVE NRG Complete urinalysis with reflex to culture YES NRG Capillary blood glucose measurement by glucometer (mass/volume) - 11/27/17 02: 51 Capillary blood glucose measurement by glucometer (mass/volume) 121 mg/dL 70-110 Complete blood count (CBC) with automated white blood cell (WBC) differential - 11/27/17 06:36 Blood leukocytes automated count (number/volume) 20.1 10*3/uL 4.3-11.0 Blood erythrocytes automated count (number/volume) 4.08 10*6/uL 4.35-5.85 Venous blood hemoglobin measurement (mass/volume) 12.3 g/dL 11.5-16.0 Blood hematocrit (volume fraction) 37 % 35-52 Automated erythrocyte mean corpuscular volume 90 [foz_us] 80-99 Automated erythrocyte mean corpuscular hemoglobin (mass per erythrocyte) 30 pg 25-34 Automated erythrocyte mean corpuscular hemoglobin concentration measurement ( mass/volume) 34 g/dL 32-36 Automated erythrocyte distribution width ratio 14.3 % 10.0-14.5 Automated blood platelet count (count/volume) 195 10*3/uL 130-400 Automated blood platelet mean volume measurement 10.3 [foz_us] 7.4-10.4 Automated blood neutrophils/100 leukocytes 90 % 42-75 Automated blood lymphocytes/100 leukocytes 5 % 12-44 Blood monocytes/100 leukocytes 4 % 0-12 Automated blood eosinophils/100 leukocytes 0 % 0-10 Automated blood basophils/100 leukocytes 0 % 0-10 Blood neutrophils automated count (number/volume) 18.2 10*3 1.8-7.8 Blood lymphocytes automated count (number/volume) 1.1 10*3 1.0-4.0 Blood monocytes automated count (number/volume) 0.9 10*3 0.0-1.0 Automated eosinophil count 0.0 10*3/uL 0.0-0.3 Automated blood basophil count (count/volume) 0.0 10*3/uL 0.0-0.1 Comprehensive metabolic panel - 11/27/17 06:36 Serum or plasma sodium measurement (moles/volume) 138 mmol/L 135-145 Serum or plasma potassium measurement (moles/volume) 3.6 mmol/L 3.6-5.0 Serum or plasma chloride measurement (moles/volume) 107 mmol/L 98-107 Carbon dioxide 20 mmol/L 21-32 Serum or plasma anion gap determination (moles/volume) 11 mmol/L 5-14 Serum or plasma urea nitrogen measurement (mass/volume) 8 mg/dL 7-18 Serum or plasma creatinine measurement (mass/volume) 0.72 mg/dL 0.60-1.30 Serum or plasma urea nitrogen/creatinine mass ratio 11 NRG Serum or plasma creatinine measurement with calculation of estimated glomerular filtration rate > NRG Serum or plasma glucose measurement (mass/volume) 126 mg/dL 70-105 Serum or plasma calcium measurement (mass/volume) 8.7 mg/dL 8.5-10.1 Serum or plasma total bilirubin measurement (mass/volume) 1.0 mg/dL 0.1-1.0 Serum or plasma alkaline phosphatase measurement (enzymatic activity/volume) 69 U/L 40-136 Serum or plasma aspartate aminotransferase measurement (enzymatic activity/ volume) 17 U/L 5-34 Serum or plasma alanine aminotransferase measurement (enzymatic activity/volume ) 16 U/L 0-55 Serum or plasma protein measurement (mass/volume) 6.3 g/dL 6.4-8.2 Serum or plasma albumin measurement (mass/volume) 3.3 g/dL 3.2-4.5 Blood manual differential performed detection - 11/27/17 06:36 Blood monocytes/100 leukocytes 2 % NRG Manual blood segmented neutrophils/100 leukocytes 75 % NRG Blood band neutrophils/100 leukocytes 18 % NRG Manual blood lymphocytes/100 leukocytes 5 % NRG Manual eosinophils/100 leukocytes in nose 0 % NRG Manual blood basophils/100 leukocytes 0 % NRG Blood erythrocyte morphology finding identification NORMAL NRG Encounters ACCT No. Visit Date/Time Discharge Status Pt. Type Provider Facility Loc./Unit Complaint [id number] 03/18/2015 16:54:00 03/18/2015 23:59:59 CLS Outpatient SHANIQUE VEGA MD [id number] 01/25/2015 09:06:00 01/25/2015 23:59:59 CLS Outpatient SHARIF JOHNSON MD [id number] 12/06/2014 05:51:00 12/06/2014 23:59:59 CLS Outpatient SHANIQUE VEGA MD [id number] 11/26/2014 15:23:00 11/26/2014 23:59:59 CLS Outpatient SHARIF JOHNSON MD [id number] 11/26/2014 15:23:00 11/26/2014 23:59:59 CLS Outpatient SHARIF JOHNSON MD [id number] 11/13/2014 15:20:00 11/13/2014 23:59:59 CLS Outpatient MIKE HAZEL DO [id number] 10/27/2014 13:31:00 10/27/2014 23:59:59 CLS Outpatient MASSIEL VEGA [id number] 09/15/2014 16:03:00 09/15/2014 23:59:59 CLS Outpatient SHARIF JOHNSON MD [id number] 08/17/2014 15:49:00 08/17/2014 23:59:59 CLS Outpatient SHARIF JOHNSON MD [id number] 07/29/2014 10:54:00 07/29/2014 23:59:59 CLS Outpatient BAIG DESI BURGOS [id number] 07/02/2014 11:34:00 07/02/2014 23:59:59 CLS Outpatient SHARIF JOHNSON MD [id number] 06/18/2014 14:51:00 06/18/2014 23:59:59 CLS Outpatient SHARIF JOHNSON MD [id number] 06/02/2014 14:58:00 06/02/2014 23:59:59 CLS Outpatient BAIG EHS ENGINEERDESI Menjivar [id number] 05/18/2014 14:07:00 05/18/2014 23:59:59 CLS Outpatient SHARIF JOHNSON MD [id number] 03/24/2014 15:01:00 03/24/2014 23:59:59 CLS Outpatient SHARIF JOHNSON MD [id number] 03/11/2014 13:43:00 03/11/2014 23:59:59 CLS Outpatient SHARIF JOHNSON MD [id number] 01/28/2014 14:29:00 01/28/2014 23:59:59 CLS Outpatient SHARIF JOHNSON MD [id number] 01/28/2014 14:29:00 01/28/2014 23:59:59 CLS Outpatient SHARIF JOHNSON MD [id number] 01/13/2014 15:39:00 01/13/2014 23:59:59 CLS Outpatient CAROLINE MENDOZA MD [id number] 01/13/2014 15:39:00 01/13/2014 23:59:59 CLS Outpatient CAROLINE MENDOZA MD [id number] 12/15/2013 15:34:00 12/15/2013 23:59:59 CLS Outpatient MIKE HAZEL DO [id number] 12/15/2013 15:34:00 12/15/2013 23:59:59 CLS Outpatient MAX DHILLON APRN [id number] 12/11/2013 11:52:00 12/11/2013 23:59:59 CLS Outpatient MAX DHILLON APRN [id number] 11/12/2013 16:30:00 11/12/2013 23:59:59 CLS Outpatient SHAHNAZ MARQUEZ APRN [id number] 11/09/2013 12:50:00 11/09/2013 23:59:59 CLS Outpatient AUDIE MARC APRN [id number] 11/03/2013 09:32:00 11/03/2013 23:59:59 CLS Outpatient EDSI BAIG APRN [id number] 10/20/2013 09:44:00 10/20/2013 23:59:59 CLS Outpatient DESI BAIG APRN [id number] 09/22/2013 14:05:00 09/22/2013 23:59:59 CLS Outpatient CAROLINE MENDOZA MD [id number] 09/08/2013 08:20:00 09/08/2013 23:59:59 CLS Outpatient CAROLINE MENDOZA MD [id number] 08/31/2013 08:05:00 08/31/2013 23:59:59 CLS Outpatient CAROLINE MENDOZA MD [id number] 08/07/2013 11:43:00 08/07/2013 23:59:59 CLS Outpatient MARIA DE JESUS BUTLER DO [id number] 01/22/2013 09:37:00 01/22/2013 23:59:59 CLS Outpatient MARIA DE JESUS BUTLER DO [id number] 01/15/2013 10:49:00 01/15/2013 23:59:59 CLS Outpatient CAROLINE MENDOZA MD [id number] 01/15/2013 10:49:00 01/15/2013 23:59:59 CLS Outpatient CAROLINE MENDOZA MD [id number] 12/23/2012 13:28:00 12/23/2012 23:59:59 CLS Outpatient MARIA DE JESUS BUTLER DO [id number] 11/24/2012 14:22:00 11/24/2012 23:59:59 CLS Outpatient MIKE HAZEL DO [id number] 11/14/2012 13:45:00 11/14/2012 23:59:59 CLS Outpatient MIKE HAZEL DO [id number] 10/24/2012 13:17:00 10/24/2012 23:59:59 CLS Outpatient SHANIQUE VEGA MD [id number] 10/24/2012 13:17:00 10/24/2012 23:59:59 CLS Outpatient [id number] 10/21/2012 10:34:00 10/21/2012 23:59:59 CLS Outpatient [id number] 09/11/2012 11:29:00 09/11/2012 23:59:59 CLS Outpatient MARIA DE JESUS BUTLER DO [id number] 07/27/2013 11:07:00 Document Registration [id number] 07/02/2013 08:45:00 Document Registration [id number] 07/01/2013 11:44:00 Document Registration [id number] 07/01/2013 11:44:00 Document Registration [id number] 06/05/2013 08:35:00 Document Registration [id number] 05/13/2013 09:45:00 Document Registration [id number] 05/06/2013 10:52:00 Document Registration [id number] 04/21/2013 11:00:00 Document Registration [id number] 03/13/2013 11:19:00 Document Registration [id number] 11/21/2017 15:15:00 11/21/2017 23:59:59 CLS Preadmit SATHISH ABAD [facility] RAD CAROTID ARTERY STENOSIS [id number] 11/19/2017 05:29:00 11/19/2017 14:39:00 DIS Outpatient LUL NORWOOD MD [facility] PREOP INCONTINENCE,RETENTION [id number] 11/08/2017 12:00:00 11/08/2017 23:59:59 CLS Preadmit LUL NORWOOD MD [facility] SDC INCONTINENCE,RETENTION [id number] 11/04/2017 05:57:00 11/04/2017 23:59:59 CLS Outpatient LUL NORWOOD MD [facility] PREOP INCONTINENCE,RETENTION [id number] 10/15/2017 07:43:00 10/15/2017 23:59:59 CLS Outpatient BISHNU ROLDAN FACC, ALI FACP CCDS [facility] RAD AAA [id number] 10/15/2017 07:43:00 10/15/2017 14:13:00 DIS Outpatient BISHNU ROLDAN FACC, ALI FACP CCDS [facility] CATH AAA,CAD,PAF, HTN [id number] 10/08/2017 07:01:00 10/08/2017 23:59:59 CLS Outpatient BISHNU ROLDAN FACC, ALI FACP CCDS [facility] CARD R06.02 SOB [id number] 10/04/2017 13:16:00 10/04/2017 23:59:59 CLS Outpatient BISHNU ROLDAN FACC, ALI FACP CCDS [facility] CARD SOB [id number] 10/04/2017 07:15:00 10/04/2017 23:59:59 CLS Preadmit BISHNU ROLDAN FACC, ALI FACP CCDS [facility] CARD SOB [id number] 02/12/2017 05:56:00 02/12/2017 11:40:00 DIS Outpatient LUL NORWOOD MD Via [facility] OAB [id number] 02/06/2017 09:39:00 02/06/2017 13:57:00 DIS Outpatient LUL NORWOOD MD [facility] PREOP OAB [id number] 11/27/2016 06:58:00 11/28/2016 16:00:00 DIS Outpatient LUL NORWOOD MD [facility] ISD [id number] 11/22/2016 10:00:00 11/22/2016 13:00:00 DIS Outpatient LUL NORWOOD MD [facility] PREOP ISD [id number] 05/14/2016 15:45:00 05/16/2016 13:05:00 DIS Inpatient PRUDENCE SHAW MD [facility] 4TH [id number] 12/07/2015 07:47:00 12/07/2015 09:30:00 DIS Emergency TARA SOTO MD [facility] ER [id number] 03/10/2015 11:28:00 03/15/2015 12:00:00 DIS Inpatient ELIZABETH ROLDAN, SHARIF Menjivar [facility] CSD [id number] 02/27/2015 21:37:00 02/28/2015 13:30:00 DIS Inpatient GARY ROLDAN, SHANIQUE Funk [facility] SURGICAL ALTERED MENTAL STATUS UTI [id number] 02/25/2015 03:44:00 02/25/2015 06:24:00 DIS Emergency EUNICE ROLDAN, JUAREZ Powell [facility] ER [id number] 02/03/2015 17:50:00 02/24/2015 16:55:00 DIS Inpatient SASHA ROLDAN, MYRNA Mc [facility] IRF [id number] 12/28/2014 09:10:00 12/28/2014 17:30:00 DIS Outpatient BISHNU ROLDAN FACC, CHELLE WALTERS CCDS [facility] [id number] 12/24/2014 13:00:00 12/24/2014 23:59:59 CLS Outpatient GARY ROLDAN, SHANIQUE Funk [facility] [id number] 12/20/2014 20:00:00 12/20/2014 23:59:59 CLS Preadmit WILL CASPER DO [facility] SLEEP ARRHYTHMIAS,MOOD DISORDER,HYPOXIA [id number] 12/03/2014 09:58:00 12/03/2014 10:47:00 DIS Outpatient JEANNETTE ROLDAN, DIANNA Adhikari [facility] CARD [id number] 12/02/2014 09:45:00 12/02/2014 23:59:59 CLS Preadmit ELIZABETH ROLDAN, SHARIF Menjivar [facility] RAD NAUSEA,UNABLE TO TOLERATE SOLID FOODS [id number] 11/22/2014 14:15:00 11/22/2014 23:59:59 CLS Preadmit WILL CASPER DO Via [facility] RT HYPOXIA DYPSNEA [id number] 11/11/2014 11:54:00 11/11/2014 14:00:00 DIS Emergency EMANUEL WILKINSON MD Via [facility] [id number] 11/04/2014 17:27:00 11/05/2014 11:35:00 DIS Inpatient SHANIQUE VEGA MD Via [address] [id number] 11/01/2014 22:05:00 11/02/2014 16:45:00 DIS Inpatient MIKE HAZEL DO Via [address] [id number] 09/25/2014 11:09:00 09/25/2014 23:59:59 CLS Outpatient [id number] 08/23/2014 12:50:00 08/23/2014 23:59:59 CLS Outpatient DIANNA MACHADO MD Via [facility] [id number] 08/02/2014 10:32:00 08/02/2014 23:59:59 CLS Outpatient MARY VILLALOBOSANDRE Via [facility] [id number] 07/23/2014 08:50:00 07/23/2014 23:59:59 CLS Outpatient DIANNA MACHADO MD Via [facility] [id number] 06/28/2014 12:46:00 06/28/2014 14:24:00 DIS Outpatient DIANNA MACHADO MD [facility] [id number] 06/07/2014 12:24:00 06/07/2014 14:09:00 DIS Emergency ANARUFINA Martin DO Via [facility] [id number] 05/24/2014 12:58:00 05/24/2014 13:45:00 DIS Outpatient DIANNA MACHADO MD Via [facility] [id number] 12/22/2013 12:42:00 12/22/2013 23:59:59 CLS Outpatient MAX DHILLON [facility] [id number] 11/12/2013 18:13:00 11/14/2013 14:30:00 DIS Inpatient SHARIF JOHNSON MD Via [address] COPD EXACERBATION [id number] 07/02/2013 11:37:00 07/09/2013 12:50:00 DIS Inpatient SHANIQUE VEGA MD Via [address] [id number] 07/02/2013 11:06:00 07/02/2013 23:59:59 CLS Emergency [id number] 06/11/2013 09:24:00 06/11/2013 23:59:59 CLS Outpatient REJI ROLDAN, CAROLINE [facility] [id number] 11/26/2017 17:46:00 Document Registration [id number] 02/17/2015 16:12:00 Document Registration [id number] 02/17/2015 16:12:00 Document Registration [id number] 02/17/2015 16:12:00 Document Registration [id number] 02/17/2015 16:12:00 Document Registration [id number] 09/30/2012 14:20:00 Document Registration [id number] 07/01/2012 14:08:00 Document Registration [id number] 03/11/2012 14:34:00 Document Registration [id number] 10/17/2011 15:30:00 Document Registration [id number] 10/09/2011 15:24:00 Document Registration [id number] 10/06/2011 09:02:00 Document Registration [id number] 07/30/2011 17:25:00 Document Registration [id number] 07/17/2011 16:12:00 Document Registration
[2017-11-27 12:00] VITALS: BP 187/84
[2017-11-27 15:00] VITALS: BP 128/56
[2017-11-27] MEDS ORDERED: LEVOFLOXACIN 250 MG/D5W 50 ML (PRE-MIX) IV SCH (20:00)
[2017-11-27] MEDS ORDERED: ATORVASTATIN 40 MG (LIPITOR) TABLET PO SCH (21:00)
[2017-11-27] MEDS ORDERED: meTOprolol TARTRATE 50 MG (LOPRESSOR) TAB PO SCH (21:00)
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
== END 2017-11-27 11:41 | disposition home or self-care (01) ==
LOC: EDUNIT# 17:12 → ER 17:13 → UNDOADMOB 20:47 → 4TH 20:47 → UNDODISOB 11-27 15:00
PROVIDERS: ADMIT Pediatrics; ATTEND Pediatrics
DX: T83.510A Infection and inflammatory reaction due to cystostomy catheter, initial encounter (principal); N39.0 Urinary tract infection, site not specified; E86.0 Dehydration; I25.10 Atherosclerotic heart disease of native coronary artery without angina pectoris; I48.0 Paroxysmal atrial fibrillation; I11.0 Hypertensive heart disease with heart failure; I50.32 Chronic diastolic (congestive) heart failure; E78.00 Pure hypercholesterolemia, unspecified; J44.9 Chronic obstructive pulmonary disease, unspecified; J45.909 Unspecified asthma, uncomplicated; K59.09 Other constipation; E11.9 Type 2 diabetes mellitus without complications; F32.9 Major depressive disorder, single episode, unspecified; F41.9 Anxiety disorder, unspecified; E03.9 Hypothyroidism, unspecified; I65.23 Occlusion and stenosis of bilateral carotid arteries; I73.9 Peripheral vascular disease, unspecified; Z95.1 Presence of aortocoronary bypass graft; Z79.01 Long term (current) use of anticoagulants; Z79.82 Long term (current) use of aspirin; Z79.84 Long term (current) use of oral hypoglycemic drugs; Z79.899 Other long term (current) drug therapy; Z87.891 Personal history of nicotine dependence; Z96.641 Presence of right artificial hip joint
CPT/HCPCS: 36415; 71045; 74176; 80053; 81000; 82962; 83605; 84484; 85007; 85027; 85610; 85730; 86141; 87040; 87088; 87804; 93005; 96361; 96374; G0378

== ENCOUNTER → 2017-12-02 | Outpatient (CLI) | payer MEDICARE, MEDICAID ==
[~2017-12-02] MED LIST changes: +IOHEXOL 350 MG/ML 100 ML (OMNIPAQUE 350) VIAL IV ONE; +LEVO250T11 PO; +MORP-34 PO; +NS 100 ML (IVPB) BAG IV ONE; +TAMS0.4C98 PO
--- NOTE | 2017-12-02 11:48 | Diagnostic Imaging Report ---
EXAMINATION: CTA of the neck with contrast. INDICATION: Carotid artery stenosis. TECHNIQUE: Contiguous axial sections were taken from the midportion of the skull through the lung apices following administration of intravenous contrast. Sagittal and coronal reconstructed images were also obtained as well as MIP images. COMPARISON: There are no previous studies available for comparison. FINDINGS: This study is less than optimal due to motion artifact. There is severe atherosclerotic disease involving the carotid bifurcation on the left. In addition, there is a focal high-grade (greater than 90%) stenosis of the origin of the internal carotid artery on the left. In addition, there is a 50-60% stenosis of the distal common carotid artery on the left just proximal to the bifurcation. There is also a focal high-grade (greater than 90%) stenosis of the origin of the internal carotid artery on the right. There are also areas of ulceration involving the distal common carotid artery on the right including a 5 mm shallow ulcer along the lateral aspect of the vessel just proximal to its bifurcation. Both vertebral arteries were identified. The vertebral arteries are opacified and the arteries appear to be codominant. The intracranial arterial circulation, where visualized, is unremarkable for an aneurysm or high-grade stenosis. There is no mass or adenopathy involving the neck. The submandibular glands and the thyroid gland are generally unremarkable. The left parotid gland is much larger than the right. The reason for this is not certain. The images through the lung apices show severe emphysematous changes bilaterally. The bone windows are unremarkable for fracture or for destructive lesion. However, there is severe degenerative disc and bony disease at C5-C6. Specifically, there is near-complete obliteration of the disc space and marked sclerosis of the opposing endplates of C5 and C6. The axial images also show spinal stenosis at this level as well as narrowing of the neuroforamen, particularly on the right. There is also bony foraminal encroachment on the left at C3-C4. These findings are similar to the prior CT cervical spine exam of 03/10/2015. The postsurgical changes involving the left temporoparietal bone seen on the prior exam are also again evident. IMPRESSION: 1. There is severe atherosclerotic disease involving both carotid bifurcations and there are high-grade (greater than 90%) stenoses of the origins of both internal carotid arteries. 2. There are also areas of ulceration involving the distal common carotid artery on the right and a 50-60% stenosis of the distal common carotid artery on the left. 3. Both vertebral arteries are opacified and the vessels seem to be codominant. 4. There are severe emphysematous changes involving both lung apices. 5. There is severe degenerative disc and bony disease at C5-C6. There is no acute bony abnormality appreciated. Dictated by: Dictated on workstation # [id number]
== END ==
LOC: RAD 07:48
PROVIDERS: ATTEND Nurse Practitioner Family
DX: I65.23 Occlusion and stenosis of bilateral carotid arteries (principal); J43.9 Emphysema, unspecified; I77.2 Rupture of artery; I71.4 Abdominal aortic aneurysm, without rupture; I70.209 Unspecified atherosclerosis of native arteries of extremities, unspecified extremity; M50.322 Other cervical disc degeneration at C5-C6 level
CPT/HCPCS: 70498

== ENCOUNTER 2017-12-14 20:14 | Emergency (ER) | payer MEDICARE, MEDICAID ==
[~2017-12-14] VITALS: Ht 157.5 cm; Wt 78.0 kg
[~2017-12-14 20:14] MED LIST changes: -IOHEXOL 350 MG/ML 100 ML (OMNIPAQUE 350) VIAL IV ONE; -NS 100 ML (IVPB) BAG IV ONE
[2017-12-14] MEDS ORDERED: LACTATED RINGERS 1,000 ML IV ONE (20:41)
--- NOTE | 2017-12-14 20:52 | ED Fall/Injury ---
General Stated Complaint: WENT UNRESPONSIVE,HIT HEAD, VCV Source: patient, family (Son, [id number] and granddaughter) Exam Limitations: no limitations History of Present Illness Date Seen by Provider: Dec 14, 2017 Time Seen by Provider: 20:43 Initial Comments Patient presents to ER by private conveyance with family and chief complaint that she was at via [employer] this evening they went to visit her for her birthday and she dazed off in the middle of the dessert. Via [facility] nursing staff reports that this morning the patient was found down with her head against the wall. The patient is on blood thinners, Apixaban, and they reported that she's been acting off today spacing off and having instability on her feet. She has not been evaluated yet. 2 weeks ago she had a superpubic catheter placed by urology Dr. Norwood, for history of recurrent urinary tract infections. Since that and placed staff has noted that she has been having increased instability on her feet altered mental status, being tired, weak and is no longer as ambulatory as she once was. Now she can transfer with assist from chair to bed whereas before the procedure she was able to walk or Pimentel's vigorously. Patient states she's having low back pain but no nausea chest pain, shortness of breath. She has been coughing a lot recently and does have a history of asthma/COPD for which she uses twice a day inhaled steroid. Allergies and Home Medications Allergies Coded Allergies: Sulfa (Sulfonamide Antibiotics) (Verified Allergy, Unknown, 02/06/17) diphenhydramine HCl (Verified Allergy, Unknown, 05/14/16) hydrochlorothiazide (Unverified Allergy, Unknown, 05/14/16) varenicline tartrate (Verified Allergy, Unknown, 05/14/16) Home Medications Albuterol Sulfate 8.5 Gm Hfa.aer.ad, 1 PUFF IH Q4H PRN for SHORTNESS OF BREATH, (Reported) Apixaban 5 Mg Tablet, 5 MG PO BID, (Reported) ON HOLD THROUGH 12-03-17 Aspirin 81 Mg Tab.chew, 81 MG PO DAILY, (Reported) ON HOLD THROUGH 12-10-17 Atorvastatin Calcium 40 Mg Tablet, 40 MG PO HS, (Reported) Budesonide/Formoterol Fumarate 10.2 Gm Hfa.aer.ad, 2 PUFF IH BID, (Reported) Bupropion HCl 300 Mg Tab.er.24h, 300 MG PO HS, (Reported) Estradiol 42.5 Gm Cream.appl, 1 GM TOP Fr, (Reported) APPLY 1 GM TO VAGINAL AREA EXTERNALLY WEEKLY AT HS FOR UTI PROPHYLAXIS Estradiol 42.5 Gm Cream.appl, 1 GM VG MoWeFr, (Reported) APPLY 1 GM VAGINAL INTERNALLY 3X PER WEEK Furosemide 20 Mg Tablet, 20 MG PO Q48H, (Reported) Gabapentin 400 Mg Capsule, 400 MG PO TID, (Reported) Levofloxacin 250 Mg Tablet, 250 MG PO DAILY for 5 Days, #5 Ref 0 Prescribed by: PRUDENCE CHAVEZ on 11/27/17 1141 Lorazepam 0.5 Mg Tablet, 0.5 MG PO Q8H PRN for ANXIETY/ BLADDER PAIN, (Reported) Metformin HCl 500 Mg Tablet, 500 MG PO DAILY, (Reported) TAKE WITH A MEAL Metoprolol Tartrate 50 Mg Tablet, 50 MG PO BID, (Reported) Morphine Sulfate 30 Mg Tablet.er, 30 MG PO Q12H, (Reported) Ondansetron HCl 4 Mg Tablet, 4 MG PO Q6H PRN for NAUSEA/VOMITING-1ST LINE, ( Reported) Polyethylene Glycol 3350 17 Gm Powd.pack, 17 GM PO DAILY, (Reported) Potassium Chloride 20 Meq Tab.er.prt, 40 MEQ PO Q48H, (Reported) TAKES 2 (20MEQ) TABLETS EVERY OTHER DAY WITH FUROSEMIDE Tamsulosin HCl 0.4 Mg Cap, 0.4 MG PO DAILY, (Reported) Trazodone HCl 50 Mg Tablet, 50 MG PO HS, (Reported) Constitutional: No chills, dizziness, No fever, No malaise Eyes: Denies Blindness, Denies Blurred Vision Ears, Nose, Mouth, Throat: denies ear pain, denies ear discharge Respiratory: cough, No phlegm, short of breath, wheezing Cardiovascular: No chest pain, No palpitations, No syncope Gastrointestinal: No abdominal pain, No constipation, No diarrhea, No nausea Genitourinary: see HPI Skin: No pruritus, No rash Past Sxnzxkf-Ggbzfa-Bzlzrx Hx Patient Social History Alcohol Use: Denies Use Recreational Drug Use: No Smoking Status: Former Smoker Type Used: Cigarettes Former Smoker, Quit: Oct 15, 1988 Recent Foreign Travel: No Contact w/Someone Who Travel: No Recent Hopitalizations: Yes Immunizations Up To Date Tetanus Booster (TDap): Unknown PED Vaccines UTD: No Date of Pneumonia Vaccine: Sep 05, 2014 Date of Influenza Vaccine: Aug 19, 2017 Seasonal Allergies Seasonal Allergies: No Surgeries History of Surgeries: Yes (triple bypass, craniotomy for aneurysm repair, BLADDER SLING) Surgeries: Adenoidectomy, Appendectomy, Bladder Surgery, Cardiac, CABG, Gallbladder, Hysterectomy, Joint Replacement, Orthopedic, Tonsillectomy Respiratory History of Respiratory Disorde: Yes Respiratory Disorders: Pneumonia, Chronic Bronchitis, COPD Cardiovascular History of Cardiac Disorders: Yes (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, 2015) Cardiac Disorders: Coronary Artery Disease, High Cholesterol, Hypertension Neurological History of Neurological Disord: Yes (HAD BRAIN SURGERY FOR ANEURYSM 2008) Reproductive System Hx Reproductive Disorders: Yes Sexually Transmitted Disease: No Female Reproductive Disorders: Endometriosis 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 Genitourinary Genitourinary Disorders: UTI-Chronic Gastrointestinal History of Gastrointestinal Di: Yes Gastrointestinal Disorders: Chronic Constipation Musculoskeletal History of Musculoskeletal Dis: Yes ( BILAT ROTATOR CUFF SURGERY) Musculoskeletal Disorders: Degenerate Disk Disease, Arthritis, Chronic Back Pain Endocrine History of Endocrine Disorders: Yes Endocrine Disorders: Diabetes, Non-Insulin dep HEENT HEENT Disorders: Cataract Loss of Vision: Denies Hearing Impairment: Denies Cancer History of Cancer: No Psychosocial History of Psychiatric Problem: Yes (panic disorder) Behavioral Health Disorders: Anxiety, Depression Integumentary History of Skin or Integumenta: No Blood Transfusions History of Blood Disorders: No Adverse Reaction to a Blood Tr: No Family Medical History Significant Family History: Heart Disease, Diabetes Family Medial History: Cancer 09 SISTER Cancer of colon Cataract 03 MOTHER, Onset:Unknown Family history: Allergy 03 FATHER, Onset:Unknown 03 MOTHER, Onset:Unknown Family history: Arthritis 03 FATHER, Onset:Unknown 03 MOTHER, Onset:Unknown 09 SISTER, Onset:Unknown Family history: Cardiovascular disease 03 FATHER, Onset:Unknown 03 MOTHER, Onset:Unknown 09 BROTHER, Onset:Unknown 09 SISTER, Onset:Unknown Family history: Diabetes mellitus 03 MOTHER, Onset:Unknown Family history: Gastrointestinal disease 03 FATHER, Onset:Unknown Family history: Hypertension 03 MOTHER, Onset:Unknown Family history: Osteoporosis 03 MOTHER, Onset:Unknown Hearing loss 03 FATHER, Onset:Unknown Heart disease 03 FATHER, Onset:Unknown 03 MOTHER, Onset:Unknown 09 BROTHER, Onset:Unknown Hypercholesterolemia 03 MOTHER, Onset:Unknown Malignant neoplasm of lung 09 SISTER, Onset:Unknown Myocardial infarction 09 BROTHER, Onset:Unknown Parkinson's disease Stroke 03 FATHER, Onset:Unknown Thyroid disease No Family History of: Abdominal aortic aneurysm Midland's disease Alcoholism Aphasia Chest pain Congenital heart disease Congestive heart failure Cystic fibrosis Dementia Dysphagia Family history: Alzheimer's disease Family history: Asthma Family history: Breast disease Family history: Coronary thrombosis Family history: Glaucoma Family history: Thyroid disorder Headache Hereditary disease History of - anemia History of - disorder History of - respiratory disease History of drug abuse Human immunodeficiency virus (HIV) seropositivity Infertile Kidney disease Prostate cancer Psychotic disorder Seizure disorder Tuberculosis Visual impairment Physical Exam Vital Signs Vital Sign - Last 12Hours 12/14/17 20:30 Temp 97.3 Pulse 89 Resp 16 B/P (MAP) 141/88 (105) Pulse Ox 96 O2 Delivery Room Air Capillary Refill : General Appearance: WD/WN, no apparent distress HEENT: PERRL/EOMI, normal ENT inspection, TMs normal, pharynx normal (Oral mucosa is dry) Neck: non-tender, supple, normal inspection Cardiovascular: normal peripheral pulses, regular rate, rhythm Respiratory: chest non-tender, decreased breath sounds, wheezing (Mild throughout) Peripheral Pulses: 2+ Radial Pulses (R), 2+ Radial Pulses (L) Gastrointestinal: normal bowel sounds, non tender, soft 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, no motor/sensory deficits, alert, oriented x 3, depressed affect Skin: normal color, warm/dry, other (Nonerythematous percutaneous site for suprapubic catheter with solis green discharge with malodorous smell and a dressing labeled 12/11/17.) Funmilayo Coma Score Best Eye Response: (4) Open Spontaneously Best Verbal Response: (5) Oriented Best Motor Response: (6) Obeys Commands Funmilayo Total: 15 Progress/Results/Core Measures Results/Orders Lab Results Laboratory Tests Test 12/14/17 20:40 12/14/17 20:50 Range/Units White Blood Count 11.0 4.3-11.0 10^3/uL Red Blood Count 4.47 4.35-5.85 10^6/uL Hemoglobin 13.2 11.5-16.0 G/DL Hematocrit 39 35-52 % Mean Corpuscular Volume 87 80-99 FL Mean Corpuscular Hemoglobin 30 25-34 PG Mean Corpuscular Hemoglobin Concent 34 32-36 G/DL Red Cell Distribution Width 14.1 10.0-14.5 % Platelet Count 351 130-400 10^3/uL Mean Platelet Volume 9.9 7.4-10.4 FL Neutrophils (%) (Auto) 68 42-75 % Lymphocytes (%) (Auto) 20 12-44 % Monocytes (%) (Auto) 11 0-12 % Eosinophils (%) (Auto) 2 0-10 % Basophils (%) (Auto) 0 0-10 % Neutrophils # (Auto) 7.5 1.8-7.8 X 10^3 Lymphocytes # (Auto) 2.1 1.0-4.0 X 10^3 Monocytes # (Auto) 1.2 H 0.0-1.0 X 10^3 Eosinophils # (Auto) 0.2 0.0-0.3 10^3/uL Basophils # (Auto) 0.0 0.0-0.1 10^3/uL Sodium Level 136 135-145 MMOL/L Potassium Level 4.7 3.6-5.0 MMOL/L Chloride Level 102 98-107 MMOL/L Carbon Dioxide Level 24 21-32 MMOL/L Anion Gap 10 5-14 MMOL/L Blood Urea Nitrogen 15 7-18 MG/DL Creatinine 0.83 0.60-1.30 MG/DL Estimat Glomerular Filtration Rate > 60 BUN/Creatinine Ratio 18 Glucose Level 132 H 70-105 MG/DL Lactic Acid Level 1.80 0.50-2.00 MMOL/L Calcium Level 9.7 8.5-10.1 MG/DL Magnesium Level 1.6 L 1.8-2.4 MG/DL Total Bilirubin 0.6 0.1-1.0 MG/DL Aspartate Amino Transf (AST/SGOT) 25 5-34 U/L Alanine Aminotransferase (ALT/SGPT) 24 0-55 U/L Alkaline Phosphatase 86 40-136 U/L C-Reactive Protein High Sensitivity 2.06 H 0.00-0.50 MG/DL Total Protein 7.2 6.4-8.2 GM/DL Albumin 3.5 3.2-4.5 GM/DL Urine Color YELLOW Urine Clarity CLEAR Urine pH 5 5-9 Urine Specific [place] 1.015 L 1.016-1.022 Urine Protein 2+ H NEGATIVE Urine Glucose (UA) NEGATIVE NEGATIVE Urine Ketones NEGATIVE NEGATIVE Urine Nitrite NEGATIVE NEGATIVE Urine Bilirubin NEGATIVE NEGATIVE Urine Urobilinogen NORMAL NORMAL MG/DL Urine Leukocyte Esterase 3+ H NEGATIVE Urine RBC (Auto) 2+ H NEGATIVE Urine RBC 5-10 H /HPF Urine WBC 25-50 H /HPF Urine Squamous Epithelial Cells 10-25 H /HPF Urine Crystals NONE /LPF Urine Bacteria FEW H /HPF Urine Casts NONE /LPF Urine Mucus SMALL H /LPF Urine Culture Indicated YES Micro Results Microbiology 12/14/17 Influenza Types A,B Antigen ([facility]) - Final, Complete My Orders Orders - JESSICA JENKINS Cbc With Automated Diff (12/14/17 20:41) Comprehensive Metabolic Panel (12/14/17 20:41) Hs C Reactive Protein (12/14/17 20:41) Lactic Acid Analyzer (12/14/17 20:41) Magnesium (12/14/17 20:41) Ua Culture If Indicated (12/14/17 20:41) Influenza A And B Antigens (12/14/17 20:41) Chest 1 View, Ap/Pa Only (12/14/17 20:41) Saline Lock/Iv-Start (12/14/17 20:41) Lactated Ringers (Lr 1000 Ml Iv Solution (12/14/17 20:41) Blood Culture (12/14/17 20:41) Ct Head/Cervical Spine Wo (12/14/17 20:52) Ceftriaxone Injection (Rocephin Injectio (12/14/17 21:00) Fentanyl Injection (Sublimaze Injection (12/14/17 21:00) Urine Culture (12/14/17 20:50) Medications Given in ED Current Medications Medications Dose Ordered Sig/Kervin Route Start Time Stop Time Status Last Admin Dose Admin Ceftriaxone Sodium 1000 mg/ Dextrose/Water 50 ml @ 100 mls/hr ONCE ONCE IV 12/14/17 21:00 12/14/17 21:29 DC 12/14/17 22:15 100 MLS/HR Fentanyl Citrate 25 mcg ONCE ONCE IVP 12/14/17 21:00 12/14/17 21:01 DC 12/14/17 21:07 25 MCG Lactated Ringer's 1,000 ml @ 0 mls/hr Q0M ONCE IV 12/14/17 20:41 12/14/17 20:46 DC 12/14/17 21:08 0 MLS/HR Vital Signs/I&O Vital Sign - Last 12Hours 12/14/17 20:30 Temp 97.3 Pulse 89 Resp 16 B/P (MAP) 141/88 (105) Pulse Ox 96 O2 Delivery Room Air Progress Note : Time: 20:51 Progress Note Transient alteration of consciousness after a fall on blood thinners. Concern for dural bleed versus sepsis given her two-week decline after having a superpubic catheter placed. Bile drainage at the site of the catheter may indicate bacterial infection. Trying to catch a flu swab just because everyone else around her has been sick with flu and she has a cough. We'll treat her wheezing with some DuoNeb and start her on Rocephin which would cover for urine. Diagnostic Imaging Diagonstic Imaging: Xray Plain Films/CT/US/NM/MRI: chest (1v) Comments NAME: JULES REYES Neida [facility] REC#: [id number] PHYSICIAN: JESSICA JENKINS MD CC: MILAGROS GOODWIN MD; JESSICA JENKINS Page 1 of 1 RADIOLOGY REPORT VIA [facility] [place], [place] CC: MILAGROS GOODWIN MD; JESSICA JENKINS Page 1 of 1 RADIOLOGY REPORT NAME: JULES REYES [facility] REC#: [id number] PT STATUS: REG ER : 1935 PHYSICIAN: JESSICA JENKINS MD ADMIT DATE: 12/14/17/ER Signed Date of Exam: 12/14/17 CHEST 1 VIEW, AP/PA ONLY INDICATION: Confusion and recent fall. COMPARISON: 11/26/2017. TECHNIQUE: Single view of the chest was obtained. FINDINGS: Stable cardiomegaly with central vascular congestion. No dense airspace consolidation. No pleural effusion or pneumothorax. No displaced rib fractures. Clavicles are intact. IMPRESSION: Stable cardiomegaly with chronic central vascular congestion. No acute cardiopulmonary process by portable radiography. Dictated by: Dictated on workstation # [id number] Dict: 12/14/172155 Trans: 12/14/172158 Interpreted by: MILAGROS GOODWIN MD Electronically signed by: MILAGROS GOODWIN MD 01/27/18 2159 Reviewed: Reviewed by Me Diagonstic Imaging: CT Plain Films/CT/US/NM/MRI: c-spine, head Comments NAME: JULES REYES [facility] REC#: [id number] PHYSICIAN: JESSICA JENKINS MD CC: MILAGROS GOODWIN MD; JESSICA JENKINS Page 2 of 2 RADIOLOGY REPORT VIA [place], [place] CC: MILAGROS GOODWIN MD; JESSICA JENKINS Page 1 of 2 RADIOLOGY REPORT NAME: JULES REYES [facility] REC#: [id number] PT STATUS: REG ER : 1935 PHYSICIAN: JESSICA JENKINS MD ADMIT DATE: 12/14/17/ER Signed Date of Exam: 12/14/17 CT HEAD/CERVICAL SPINE WO PROCEDURE: CT head and CT cervical spine without contrast. TECHNIQUE: Multiple contiguous axial images were obtained through the brain and cervical spine without the use of intravenous contrast. Sagittal and coronal reformations through the cervical spine were then performed. INDICATION: Fall with new onset confusion and drowsiness. COMPARISON: 03/10/2015. FINDINGS: CT head: No hyperdense hemorrhage or space-occupying mass. No hydrocephalus or midline shift. No evidence of acute territorial infarct. Periventricular white matter hypoattenuation is compatible with chronic microvascular ischemic disease. Stable changes of left temporal craniotomy. No acute calvarial abnormality. Paranasal sinuses and mastoid air cells are clear. CT cervical spine: There is no acute fracture or traumatic malalignment of the cervical spine. Arthrodesis of C6-C7 with removal of the hardware. There are adjacent segment degenerative disc disease at C5-C6 with severe joint space narrowing and endplate sclerosis. Multilevel moderate facet osteoarthritis. Lung apices are clear with exception of emphysema. No cervical lymphadenopathy. IMPRESSION: 1. No acute intracranial process or skull fracture. 2. No acute fracture or traumatic malalignment in the cervical spine. Dictated by: Dictated on workstation # [id number] Dict: 12/14/172147 Trans: 12/14/172158 Interpreted by: MILAGROS GOODWIN MD Electronically signed by: MILAGROS GOODWIN MD 12/14/172158 Reviewed: Reviewed by Me Departure Impression Impression: Primary Impression: Fall on same level from slipping, tripping or stumbling Qualified Codes: W01.0XXA - Fall on same level from slipping, tripping and stumbling without subsequent striking against object, initial encounter Additional Impression: Urinary tract infection associated with indwelling urethral catheter Qualified Codes: T83.511A - Infection and inflammatory reaction due to indwelling urethral catheter, initial encounter; N39.0 - Urinary tract infection , site not specified Disposition: HOME, SELF-CARE Condition: Stable Departure-Patient Inst. Decision time for Depature: 22:34 Referrals: SHANIQUE VEGA MD (PCP/Family) Primary Care Physician Patient Instructions: How to Prevent Catheter Associated Urinary Tract Infections Add. Discharge Instructions: Drink lots of fluids. Start the Rocephin tomorrow afternoon one IV infusion daily for the next 4 days. Change the dressing daily and brett it. Clean the site with soap and water daily and as needed for soiling. 24 hours after initial antibiotics swap the suprapubic catheter out for a new one. Follow up with your primary care physician next week. If you continue have fevers despite antibiotics should return to your doctor or the ER for evaluation. Fall precautions for the next week. Copy Copies To 1: MIKE HAZEL DO Copies To 2: LUL NORWOOD MD, TITUS J Dec 14, 2017 20:52
[2017-12-14] MEDS ORDERED: cefTRIAXone INJECTION 1,000 MG in D5W 50 ML IVPB SOLUTION 50 ML IV ONE (21:00)
[2017-12-14] MEDS ORDERED: fentaNYL INJECTION 100 MCG/2 ML AMP IVP ONE (21:00)
[2017-12-14 21:02] LABS: BASOPHILS % (AUTO) 0 % (0-10); EOSINOPHILS # (AUTO) 0.2 10^3/uL (0.0-0.3); EOSINOPHILS % (AUTO) 2 % (0-10); HEMATOCRIT 39 % (35-52); HEMOGLOBIN 13.2 G/DL (11.5-16.0); LYMPHOCYTES # (AUTO) 2.1 X 10^3 (1.0-4.0); LYMPHOCYTES % (AUTO) 20 % (12-44); MEAN CORPUSCULAR HEMOGLOBIN 30 PG (25-34); MEAN CORPUSCULAR HGB CONC 34 G/DL (32-36); MEAN CORPUSCULAR VOLUME 87 FL (80-99); MEAN PLATELET VOLUME 9.9 FL (7.4-10.4); MONOCYTES # (AUTO) 1.2 X 10^3 (0.0-1.0); MONOCYTES % (AUTO) 11 % (0-12); NEUTROPHILS # (AUTO) 7.5 X 10^3 (1.8-7.8); NEUTROPHILS % (AUTO) 68 % (42-75); PLATELET COUNT 351 10^3/uL (130-400); RED BLOOD COUNT 4.47 10^6/uL (4.35-5.85); RED CELL DISTRIBUTION WIDTH 14.1 % (10.0-14.5)
[2017-12-14 21:03] LABS: BILIRUBIN,URINE NEGATIVE (NEGATIVE); CLARITY,URINE CLEAR; COLOR,URINE YELLOW; GLUCOSE, URINE (UA) NEGATIVE (NEGATIVE); KETONES,URINE NEGATIVE (NEGATIVE); LEUKOCYTE ESTERASE ,URINE 3+ (NEGATIVE); NITRITE,URINE NEGATIVE (NEGATIVE); PH,URINE 5 (5-9); PROTEIN,URINE 2+ (NEGATIVE); UROBILINOGEN,URINE NORMAL (NORMAL)
[2017-12-14 21:18] LABS: BACTERIA,URINE FEW /HPF; WBC,URINE 25-50 /HPF
[2017-12-14 21:21] LABS: ALANINE AMINOTRANSFERASE 24 U/L (0-55); ALBUMIN 3.5 GM/DL (3.2-4.5); ALKALINE PHOSPHATASE 86 U/L (40-136); BILIRUBIN,TOTAL 0.6 MG/DL (0.1-1.0); BUN/CREATININE RATIO 18; CALCIUM 9.7 MG/DL (8.5-10.1); CARBON DIOXIDE 24 MMOL/L (21-32); CHLORIDE 102 MMOL/L (98-107); CREATININE SERUM 0.83 MG/DL (0.60-1.30); GFR ESTIMATED > 60; GLUCOSE 132 MG/DL (70-105); MAGNESIUM 1.6 MG/DL (1.8-2.4); POTASSIUM 4.7 MMOL/L (3.6-5.0); SODIUM 136 MMOL/L (135-145); TOTAL PROTEIN 7.2 GM/DL (6.4-8.2)
--- NOTE | 2017-12-14 21:55 | Diagnostic Imaging Report ---
PROCEDURE: CT head and CT cervical spine without contrast. TECHNIQUE: Multiple contiguous axial images were obtained through the brain and cervical spine without the use of intravenous contrast. Sagittal and coronal reformations through the cervical spine were then performed. INDICATION: Fall with new onset confusion and drowsiness. COMPARISON: 03/10/2015. FINDINGS: CT head: No hyperdense hemorrhage or space-occupying mass. No hydrocephalus or midline shift. No evidence of acute territorial infarct. Periventricular white matter hypoattenuation is compatible with chronic microvascular ischemic disease. Stable changes of left temporal craniotomy. No acute calvarial abnormality. Paranasal sinuses and mastoid air cells are clear. CT cervical spine: There is no acute fracture or traumatic malalignment of the cervical spine. Arthrodesis of C6-C7 with removal of the hardware. There are adjacent segment degenerative disc disease at C5-C6 with severe joint space narrowing and endplate sclerosis. Multilevel moderate facet osteoarthritis. Lung apices are clear with exception of emphysema. No cervical lymphadenopathy. IMPRESSION: 1. No acute intracranial process or skull fracture. 2. No acute fracture or traumatic malalignment in the cervical spine. Dictated by: Dictated on workstation # [id number]
--- NOTE | 2017-12-14 21:59 | Diagnostic Imaging Report ---
INDICATION: Confusion and recent fall. COMPARISON: 11/26/2017. TECHNIQUE: Single view of the chest was obtained. FINDINGS: Stable cardiomegaly with central vascular congestion. No dense airspace consolidation. No pleural effusion or pneumothorax. No displaced rib fractures. Clavicles are intact. IMPRESSION: Stable cardiomegaly with chronic central vascular congestion. No acute cardiopulmonary process by portable radiography. Dictated by: Dictated on workstation # [id number]
[2017-12-14 22:25] VITALS: BP 141/88
--- OUTSIDE RECORDS SUMMARY | 2017-12-15 11:00 | XMS REPORT | Continuity of Care Document ---
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 Operator Maintainer Name Role Phone [employer] Unavailable Unavailable Problems Medications Allergies, Adverse Reactions, Alerts Immunizations Results Vital Signs Encounters Location Location Details Encounter Type Encounter Number Reason For Visit Attending Provider ADM Date DC Date Status Source SPECIMEN [id number] NIALL CLAYTON 06/10/20172016 Active [facility] SPECIMEN [id number] NIALL CLAYTON 07/17/20172016 Active [facility] OUTPATIENT [id number] 09/27/2017 Active [facility] O Active [facility] OP SURGERY [id number] NIALL CLAYTON Active [facility] Procedures Plan of Care Social History Assessment and Plan Family History Advance Directives Functional Status
--- OUTSIDE RECORDS SUMMARY | 2017-12-15 11:01 | XMS REPORT | Encounter Summary ---
Author Author [facility] Organization [facility] Address Unknown Phone Unavailable Care Team Providers Care Unix Analyst Name Role Phone No Pcp, Na PCP Unavailable Itz Chacon MD PCP Encounter Details Date Type Department Care Team Description 09/19/2017 Prep for Case [facility] Clarissa Carlisle MD Preop examination Physicians - Urology [address] (Primary Dx); 2ND FLOOR POD A [place] 3016 Bleeding tendency (HCC) [address] [place] [address] OFFICE BLDG [phone] [place] [address] Social History Tobacco Use Types [...] K/UL Specimen Performing Laboratory MAIN LAB [address] [place] [address] * BASIC METABOLIC PANEL (09/27/2017 11:58 AM) [...] for questions. Specimen Performing Laboratory MAIN LAB [address] [place] [id number] * PTT (APTT) (09/27/2017 11:58 AM) Component Value Ref Range APTT 26.6Comment: NOTE NEW REFERENCE RANGES 21.0 - 39.0 SEC Specimen Performing Laboratory MAIN LAB [address] [place] [address] * PROTIME INR (PT) (09/27/2017 11:58 AM) Component Value Ref Range INR 1.1 0.8 - 1.2 Specimen Performing Laboratory MAIN LAB [address] [place] [id number] in this encounter Visit Diagnoses Diagnosis Preop examination - Primary Preoperative examination, unspecified Bleeding tendency (HCC) Unspecified hemorrhagic conditions
--- OUTSIDE RECORDS SUMMARY | 2017-12-15 11:01 | XMS REPORT | Encounter Summary ---
Author Author [facility] Organization [facility] Address Unknown Phone Unavailable Care Team Providers Care Acute Dialysis Registered Nurse Name Role Phone Itz Chacon MD PCP Encounter Details Date Type Department Care Team Description 09/27/2017 Anesthesia Main Operating Room Asia Baig APRN-MACHINE SHOP LEAD MAN Event [address] [facility] [place] [address] [place] [address] [phone] Anesthesia Record Procedure Name Responsible Anesthesia Start Time Anesthesia Stop Time Anesthesiologist CYSTOSTOMY, SUPRAPUBIC TUBE PLACEMENT (canceled) No events on file. Meds * No agents on file. * No blood administrations on file. No LDAs on file. in this encounter Social History Tobacco Use Types Packs/Day Years Used Date Former Smoker Cigarettes 1 25 Smokeless Tobacco: Never Used Alcohol Use Drinks/Week oz/Week Comments No 0 Standard 0.0 drinks or equivalent Sex Assigned at Date Recorded Not on file as of this encounter OR Notes * Anesthesia Preprocedure Evaluation - Caitlyn Marrufo MD - 09/27/2017 11:48 AM WELFARE MANAGER Formatting of this note may be different [...] Coronary artery disease Coronary artery bypass graft (2014) PTCA (x2 prior to CABG) No palpitations [...] seen and cleared Addendum: pt evaluated at [facility], underwent stress test which was abnormal. Proceeded to undergo cath, which showed widely patent grafts to coronary arteries ( LAD, RCA, obtuse marginal, ) normal LV function EF 70%, moderate AAA, Echo showed PASP approx 60 mmHg. in this encounter Plan of Treatment Not on fileas of this encounter Visit Diagnoses Not on filein this encounter
--- OUTSIDE RECORDS SUMMARY | 2017-12-15 11:01 | XMS REPORT | Encounter Summary ---
Author Author [facility] Organization [facility] Address Unknown Phone Unavailable Care Team Providers Care Automatic Grinder Operator Name Role Phone No Pcp, Na PCP Unavailable Reason for Visit * Reason Comments Urinary Incontinence * Outpatient Surgery (Routine) Status Reason Specialty Diagnoses / Referred By Referred To Procedures Contact Contact No Auth Needed Urology Diagnoses Lonnie Carlisle Urology Mixed MD Clarissa 2ND FLOOR POD A incontinence [address] MED OFFICE BLDG infection, site [address] [place], [place] [address] urd/ cysto- [id number] Phone: david P [phone]: [address] [phone] EMG STDS ANAL/URTL SPHNCTR OTH/THN NDL CT VOID PRESSURE STUDIES INTRAABDOMINAL CT COMPLEX CYSTOMETROGRAM VOIDING PRESSURE STUDIES CT COMPLEX UROFLOMETRY URODYNAMICS Encounter Details Date Type Department Care Team Description 09/19/2017 Procedure visit [facility] Clarissa Carlisle MD Mixed incontinence urge Physicians - Urology [address] and stress (male)(female) 2ND FLOOR POD A [address] (Primary Dx) [address] [place] [address] OFFICE BLDG [phone] [place] [address] Social History Tobacco Use Types [...] neg Urine Ketone POC neg Urine Specific [place] 1.020 POC Urine Blood POC neg Urine PH POC 5.0 Urine Protein POC neg Urine Urobilinogen POC neg Urine Nitrite POC neg Urine Leukocytes POC neg Color,UA yellow Turbidity,UA clear Specimen Performing Laboratory Urine IN CLINIC in this encounter Visit Diagnoses Diagnosis Mixed 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
--- OUTSIDE RECORDS SUMMARY | 2017-12-15 11:01 | XMS REPORT | Encounter Summary ---
Author Author [facility] Organization [facility] Address Unknown Phone Unavailable Care Team Providers Care Public Address System Installer Name Role Phone No Pcp, Na PCP Unavailable Reason for Visit * Reason Comments Urinary Retention * Outpatient Surgery (Routine) Status Reason Specialty Diagnoses / Referred By Referred To Procedures Contact Contact No Auth Needed Urology Diagnoses Lonnie Carlisle Urology Mixed MD Clarissa 2ND FLOOR POD A incontinence [address] MED OFFICE BLDG infection, site [address] [place], [place] [address] urd/ cysto- [id number] Phone: david P [phone] rocedures Fax: [place] [phone] CYSTOURETHROSCOP Y [place] EMG STDS ANAL/URTL SPHNCTR OTH/THN NDL [place] VOID PRESSURE STUDIES INTRAABDOMINAL [place] COMPLEX CYSTOMETROGRAM VOIDING PRESSURE STUDIES [place] COMPLEX UROFLOMETRY PROCEDURE - 30 Encounter Details Date Type Department Care Team Description 09/19/2017 Procedure visit [facility] Clarissa Carlisle MD Mixed stress and urge Physicians - Urology [address] urinary incontinence 2ND FLOOR POD A [address] (Primary Dx) [address] [place] [address] OFFICE BLDG [phone] [place] [address] Social History Tobacco Use Types [...] encounter Instructions * Patient Instructions - Lou Abad LPN - 09/19/2017 1:00 PM CDT [facility] Physicians - Urology Pre-Operative Instructions Surgical Procedure: [...] multivitamin, red yeast rice, ALCON-e, saw palmetto, Jermyn wort, turmeric, valerian root, Vascepa, Vitamin A, Vitamin B complex, Vitamin C, Vitamin E ? You DO NOT need to stop: iron, magnesium, potassium 7 days prior to surgery: ? Stop anti-inflammatory medications such as ibuprofen (Advil, Motrin), naproxen (Aleve), Hattie-Gillett, Excedrin, Midol, celecoxib (Celebrex), diclofenac (Voltaren), diflunisal, [...] evenings, nights, weekends, and holidays, contact [facility] hydro excavation operator and request they contact the on-call Urology Resident at [phone]. in this encounter Progress Notes * Clarissa [...] Trailed Liz Amos without success. 03/20/17 - DECK MOLDER eval with Dr. Carlisle. Still with JOE [...] Clarissa Carlisle MD - 09/22/2017 11:05 PM 911 TELECOMMUNICATOR Associated Problem(s): Mixed stress and urge urinary [...]
--- OUTSIDE RECORDS SUMMARY | 2017-12-15 11:01 | XMS REPORT | Encounter Summary ---
Author Author [facility] Organization [facility] Address Unknown Phone Unavailable Care Team Providers Care Student Services Vice President Name Role Phone Itz Chacon MD PCP Encounter Details Date Type Department Care Team Description 09/27/2017 PAC Office Preoperative Assessment Clarissa Carlisle MD Preop cardiovascular exam Visit Clinic [address] (Primary Dx); [address] Preop examination; [place] [address] [place] [address] Bleeding tendency (HCC); [phone] Hypertension, unspecified type Anesthesia Record Procedure Name Responsible Anesthesia Start [...] Taken Blood Pressure 178/94 09/27/2017 10:47 AM ELECTRONICS LEAD Pulse 77 09/27/2017 10:47 AM ELECTRONICS LEAD Temperature 36.6 C (97.9 F) 09/27/2017 10:47 AM ELECTRONICS LEAD Respiratory Rate - - Oxygen Saturation 96% 09/27/2017 10:47 AM ELECTRONICS LEAD Inhaled Oxygen - - Concentration Weight 77.2 kg (170 lb 3.2 oz) 09/27/2017 10:47 AM ELECTRONICS LEAD Height 157.5 cm (5' 2") 09/27/2017 10:47 AM ELECTRONICS LEAD Body Mass Index 31.13 09/27/2017 10:47 AM ELECTRONICS LEAD in this encounter Instructions * Pre-Anesthesia Patient Instructions - Lou Benavidez RN - 09/27/2017 11:40 AM ELECTRONICS LEAD GENERAL INFORMATION Before you come to the [...] and any other valuables at home. The [facility] is not responsible for the loss or breakage of personal items. Remove nail upper sorbian, makeup and all jewelry (including piercings) before coming to the hospital. The morning of your procedure: brush your teeth and tongue do not smoke do not shave the area where you will have surgery What to bring to the hospital ID/ Insurance Card Drill Press Set Up Operator Radial card Official documents for legal guardianship Copy of your Living Will, Advanced Directives, and/or Durable Power of Underground Drill Operator Small bag with a few personal belongings [...] to cancel your procedure Notify us at [facility]: if you need to cancel your procedure if you are going to be late Arrival at the [facility]: You will receive your arrival time from your surgeon or from the Preoperative Assessment Clinic the afternoon before your procedure. If you have not been contacted between 2:30 and 4 p.m. on the last business day before your procedure, call the Preoperative Assessment Clinic to confirm your arrival time. Before 4:30 p.m., call [phone]. After 4:30 p.m., call [phone]. Park in the [facility] located directly across from the main entrance to the hospital. [employer] parking is available from 7 AM to 4 PM Saturday through Saturday. Validate your parking ticket at the Information Desk in the hospital lobby. Proceed to Admissions located across the lobby from the Information Desk. * Pre-Anesthesia Medication Instructions - Mitra Younger, PHARMD - 2016 10:08 AM ELECTRONICS LEAD Formatting of this note may be different from the original. PreOperative Medication Instructions for your patient, Sanjuanita Barnes for upcoming surgery on 10/04/[address] Carlisle at the [facility]: Sanjuanita Cameron MEDICATIONS: albuterol (PROAIR HFA) 90 mcg/actuation inhaler [...] mg by mouth at bedtime daily. Sanjuanita Cameron 's MEDICATION INSTRUCTIONS FOR SURGERY: Before surgery [...] Tamsulosin Mitra Younger PHARMD Preoperative Assessment Clinic [facility] E-mail: [email or web address] Facility Resident at: [address] Medication Instructions above faxed on 09/27/17 in this encounter Progress Notes * Mitra Younger, EN - 09/27/2017 10:30 AM ELECTRONICS LEAD PAC Pharmacist Medication Plan Note: Sanjuanita Barnes [...] plan above was communicated to the patient's shelter who verbalized understanding. MONTSE MckinneyD in this encounter Plan of Treatment Not on fileas of this encounter Results * PTT (APTT) (09/27/2017 11:58 AM) Component Value Ref Range APTT 26.6Comment: NOTE NEW REFERENCE RANGES 21.0 - 39.0 SEC Specimen Performing Laboratory MAIN LAB [address] [place] [id number] * PROTIME INR (PT) (09/27/2017 11:58 AM) Component Value Ref Range INR 1.1 0.8 - 1.2 Specimen Performing Laboratory MAIN LAB [address] [place] [address] * CBC AND DIFF (09/27/2017 11:58 AM) [...] 0.20 K/UL Specimen Performing Laboratory MAIN LAB [address] [place] [address] * BASIC METABOLIC PANEL (09/27/2017 11:58 AM) [...] Clinical Pharmacist for questions. Specimen Performing Laboratory [facility]IN [facility] [address] [place] [address] in this encounter Visit Diagnoses Diagnosis Preop cardiovascular exam - Primary Pre-operative cardiovascular examination Preop examination Preoperative examination, unspecified Bleeding tendency (HCC) Unspecified hemorrhagic conditions Hypertension, unspecified type
--- OUTSIDE RECORDS SUMMARY | 2017-12-15 11:01 | XMS REPORT | Clinical Summary ---
Author Author [facility] Organization [facility] Address Unknown Phone Unavailable Care Team Providers Care Ship Loader Name Role Phone Itz Chacon MD PCP Source Comments Some departments are not documenting in the electronic medical record. If you do not see the information that you expected, contact Release of Information in the Health Information Management department at [phone] for further assistance in locating additional records.[facility] Allergies Active Allergy Reactions Severity Noted Date [...] 0.01 Insert or Apply to 42.5 g 11 03/20/20 Active % (0.1 mg/g) vaginal vaginal [...] Overview: Added automatically from request for surgery [id number] Mixed stress and urge urinary incontinence 03/20/2017 Overview: Longstanding hx of JOE (UUI>MAXWELL), OAB, ISD, urinary retention who is s/p PVS (Solyx) by Dr. Andrews on 11/27/16; Macroplastique injection 02/12/17. Trailed Liz Amos without success. 03/20/17 - ANIMAL CARE GIVER eval with Dr. Carlisle. Still with JOE [...] Carlisle MD Preop cardiovascular exam Visit (Primary Dx); Preop examination; Bleeding tendency (HCC); Hypertension, unspecified type 09/27/2017 Anesthesia Asia Baig APRN-ANIMAL CARE GIVER Event 09/19/2017 Procedure visit Urology Clarissa Carlisle MD Mixed incontinence urge and stress (male)(female) (Primary Dx) 09/19/2017 Procedure visit Urology Clarissa Carlisle MD Mixed stress and urge urinary incontinence (Primary Dx) 09/19/2017 Prep for Case Urology Clarissa Carlisle MD Preop examination (Primary Dx); Bleeding tendency (HCC) from Last 3 Months Social History Tobacco Use Types Packs/Day Years Used Date Former Smoker Cigarettes 1 25 Smokeless Tobacco: Never Used Alcohol Use Drinks/Week oz/Week Comments No 0 Standard 0.0 drinks or equivalent Sex Assigned at Date Recorded Not on file Last Filed Vital Signs Vital Sign Reading Time Taken Blood Pressure 178/94 09/27/2017 10:47 AM ENGLISH AND READING INSTRUCTOR Pulse 77 09/27/2017 10:47 AM ENGLISH AND READING INSTRUCTOR Temperature 36.6 C (97.9 F) 09/27/2017 10:47 AM ENGLISH AND READING INSTRUCTOR Respiratory Rate - - Oxygen Saturation 96% 09/27/2017 10:47 AM ENGLISH AND READING INSTRUCTOR Inhaled Oxygen - - Concentration Weight 77.2 kg (170 lb 3.2 oz) 09/27/2017 10:47 AM ENGLISH AND READING INSTRUCTOR Height 157.5 cm (5' 2") 09/27/2017 10:47 AM ENGLISH AND READING INSTRUCTOR Body Mass Index 31.13 09/27/2017 10:47 AM ENGLISH AND READING INSTRUCTOR Plan of Treatment Health Maintenance Due Date [...] SEC Specimen Performing Laboratory MAIN LAB [address] [place] [address] * PROTIME INR (PT) (09/27/2017 11:58 AM) Component Value Ref Range INR 1.1 0.8 - 1.2 Specimen Performing Laboratory MAIN LAB [address] [place] [address] * CBC AND DIFF (09/27/2017 11:58 AM) [...] K/UL Specimen Performing Laboratory MAIN LAB [address] [place] [address] * BASIC METABOLIC PANEL (09/27/2017 11:58 AM) [...] questions. Specimen Performing Laboratory MAIN LAB [address] [place] [address] * URODYNAMIC STUDIES (09/19/2017) Specimen Performing Laboratory IN CLINIC * POC URINE DIPSTICK MANUAL READ (09/19/2017) Component Value Ref Range Urine Glucose POC neg Urine Bilirubin POC neg Urine Ketone POC neg Urine Specific [place] 1.020 POC Urine Blood POC neg Urine PH POC 5.0 Urine Protein POC neg Urine Urobilinogen POC neg Urine Nitrite POC neg Urine Leukocytes POC neg Color,UA yellow Turbidity,UA clear Specimen Performing Laboratory Urine IN CLINIC from Last 3 Months
--- OUTSIDE RECORDS SUMMARY | 2017-12-15 11:17 | XMS REPORT | Continuity of Care Document ---
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 11/06/2011 BAIG DETECTIVE CHIEF, DESI HOUSTON 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 11/06/2011 BAIG DETECTIVE CHIEF, DESI HOUSTON 496 CHRONIC OBSTRUCTIVE PULMONARY DISEASE 11/06/2011 BAIG DETECTIVE CHIEF, DESI HOUSTON 683 ACUTE LYMPHADENITIS 11/06/2011 BAIG DETECTIVE CHIEF, DESI HOUSTON 246.9 UNSPECIFIED DISORDER OF THYROID 11/06/2011 BAIG DETECTIVE CHIEF, DESI HOUSTON 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 11/06/2011 BAIG DETECTIVE CHIEF, DESI HOUSTON 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 11/06/2011 BAIG DETECTIVE CHIEF, DESI HOUSTON 496 CHRONIC OBSTRUCTIVE PULMONARY DISEASE 11/06/2011 BAIG DETECTIVE CHIEF, DESI HOUSTON 683 ACUTE LYMPHADENITIS 11/06/2011 TARI WOODSN, AUDIE R 246.9 UNSPECIFIED DISORDER OF THYROID 11/06/2011 TARI DETECTIVE CHIEF, AUDIE R 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 11/06/2011 TARI DETECTIVE CHIEF, AUDIE R 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 11/06/2011 TARI DETECTIVE CHIEF, AUDIE R 496 CHRONIC OBSTRUCTIVE PULMONARY DISEASE 11/06/2011 TARI DETECTIVE CHIEF, AUDIE R 683 ACUTE LYMPHADENITIS 11/06/2011 JIMMY WOODSN, SHAHNAZ S 246.9 UNSPECIFIED DISORDER OF THYROID 11/06/2011 JIMMY DETECTIVE CHIEF, SHAHNAZ S 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 11/06/2011 JIMMY DETECTIVE CHIEF SHAHNAZ S 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 11/06/2011 JIMMY DETECTIVE CHIEF, SHAHNAZ S 496 CHRONIC OBSTRUCTIVE PULMONARY DISEASE [...] 246.9 UNSPECIFIED DISORDER OF THYROID 11/06/2011 JANINA LEATHER SEASONERMASSIEL M 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 11/06/2011 JANINA LEATHER SEASONERMINGOMASSIEL M 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 11/06/2011 JANINA LEATHER SEASONER, MASSIEL M 496 CHRONIC OBSTRUCTIVE PULMONARY DISEASE 11/06/2011 JANINA LEATHER SEASONER, MASSIEL M 683 ACUTE LYMPHADENITIS 11/06/2011 HAZEL [...] 296.30 MO DEPRESSIVE RECURRENT UNSPECIFIED 12/18/2011 JIMMY DETECTIVE CHIEF, SHAHNAZ S 296.30 MO DEPRESSIVE RECURRENT UNSPECIFIED [...] MD 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 06/27/2012 ELIZABETH MD, SHARIF N 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 06/27/2012 BAIG DETECTIVE CHIEF, DESI CONRAD 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 06/27/2012 SHARIF JOHNSON MD N 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 06/27/2012 SHARIF JOHNSON MD N 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 06/27/2012 JOVANNI DETECTIVE CHIEFDESI Menjivar 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 06/27/2012 [...] Vaccines Prophylactic Need Against Influenza 09/11/2012 SHAHNAZ MAQRUEZ APRN V04.81 Vaccines Prophylactic Need Against Influenza [...] DOEN F 401.1 ESSENTIAL HYPERTENSION BENIGN 10/24/2012 MAKRO BUTLER DOEN F 785.1 palpitations 10/24/2012 CAROLINE [...] CAROLINE MENDOZA MD 790.29 HYPERGLYCEMIA 12/18/2012 JOVANNI DETECTIVE CHIEF, DESI CONRAD 272.4 HYPERLIPIDEMIA 12/18/2012 JOVANNI DETECTIVE CHIEF, DESI CONRAD 790.29 HYPERGLYCEMIA 12/18/2012 JOVANNI DETECTIVE CHIEF, DESI CONRAD 272.4 HYPERLIPIDEMIA 12/18/2012 JOVANNI DETECTIVE CHIEF, DESI CONRAD 790.29 HYPERGLYCEMIA 12/18/2012 MARC DETECTIVE CHIEF, AUDIE R 272.4 HYPERLIPIDEMIA 12/18/2012 MARC DETECTIVE CHIEF, AUDIE R 790.29 HYPERGLYCEMIA 12/18/2012 JIMMY DETECTIVE CHIEF, SHAHNAZ S 272.4 HYPERLIPIDEMIA 12/18/2012 JIMMY DETECTIVE CHIEF, SHAHNAZ S 790.29 HYPERGLYCEMIA 12/18/2012 JACQUIE DETECTIVE CHIEF, MAX T 272.4 HYPERLIPIDEMIA 12/18/2012 JACQUIE BURGOS, MAX T 790.29 HYPERGLYCEMIA 12/18/2012 JACQUIE DETECTIVE CHIEF, MAX T 272.4 HYPERLIPIDEMIA 12/18/2012 JACQUIE DETECTIVE CHIEF, MAX T 790.29 HYPERGLYCEMIA 12/18/2012 HAZEL DO, [...] SHARIF JOHNSON MD N 790.29 HYPERGLYCEMIA 12/18/2012 SHARFI JOHNSON MD N 272.4 HYPERLIPIDEMIA 12/18/2012 SHARIF [...] APRNA S 271.3 GLUCOSE INTOLERANCE 09/22/2013 JIMMY BURGOS SHAHNAZ S V05.8 ZOSTAVAX DX 09/22/2013 MAX [...] SHARIF JOHNSON MD 271.3 GLUCOSE INTOLERANCE 09/22/2013 SHARFI JOHNSON MD V05.8 ZOSTAVAX DX 09/22/2013 SHARIF JOHNSON MD 271.3 GLUCOSE INTOLERANCE 09/22/2013 SHARIF JOHNSON MD V05.8 ZOSTAVAX DX 09/22/2013 SHARIF JOHNSON MD 271.3 GLUCOSE INTOLERANCE 09/22/2013 SHARIF JOHNSON MD V05.8 ZOSTAVAX DX 09/22/2013 SHARIF JOHNSON MD 271.3 GLUCOSE INTOLERANCE 09/22/2013 SHARIF JOHNSON MD V05.8 ZOSTAVAX DX 09/22/2013 JOVANNI BURGOS DESI HOUSTON 271.3 GLUCOSE INTOLERANCE 09/22/2013 JOVANNI BURGOS EDSI CONRAD V05.8 ZOSTAVAX DX 09/22/2013 SHARIF JOHNSON [...] MIKE K V05.8 ZOSTAVAX DX 09/22/2013 ELIZABETH RLODAN, SHARIF Menjivar 271.3 GLUCOSE INTOLERANCE 09/22/2013 ELIZABETH ROLDAN, SHARIF Menjivar V05.8 ZOSTAVAX DX 09/22/2013 SHANIQUE VEGA MD 271.3 GLUCOSE INTOLERANCE 09/22/2013 SHANIQUE VEGA MD V05.8 ZOSTAVAX DX 09/22/2013 SHARIF JOHNSON MD 271.3 GLUCOSE INTOLERANCE 09/22/2013 SAHRIF JOHNSON MD V05.8 ZOSTAVAX DX 09/22/2013 SHARIF [...] V65.42 COUNSELING - SMOKING CESSATION 11/12/2013 JIMMY DETECTIVE CHIEF, SHAHNAZ S 486 PNEUMONIA UNSPECIFIED 11/12/2013 JACQUIE DETECTIVE CHIEF, MAX T 486 PNEUMONIA UNSPECIFIED 11/12/2013 JACQUIE DETECTIVE CHIEF, MAX T 486 PNEUMONIA UNSPECIFIED 11/12/2013 ILIR [...] BAIG APRN 466.0 BRONCHITIS, ACUTE 12/11/2013 SHARIF JOHNSNO MD N 466.0 BRONCHITIS, ACUTE 12/11/2013 ELIZABETH [...] CORONARY ATHEROSCLEROSIS OF UNSPECIFIED TYPE OF VESSEL [place] OR GRAFT 09/15/2014 SHARIF JOHNSON MD 782.2 LOCALIZED SUPERFICIAL SWELLING MASS OR LUMP 09/15/2014 MASSIEL VEGA M 414.00 CORONARY ATHEROSCLEROSIS OF UNSPECIFIED TYPE OF VESSEL [place] OR GRAFT 09/15/2014 MASSIEL VEGA M 782.2 LOCALIZED SUPERFICIAL SWELLING MASS OR LUMP 09/15/2014 HAZEL DO, MIKE K 414.00 CORONARY ATHEROSCLEROSIS OF UNSPECIFIED TYPE OF VESSEL [place] OR GRAFT 09/15/2014 HAZEL DO, MIKE K 782.2 LOCALIZED SUPERFICIAL SWELLING MASS OR LUMP 09/15/2014 SHARIF JOHNSON MD 414.00 CORONARY ATHEROSCLEROSIS OF UNSPECIFIED TYPE OF VESSEL [place] OR GRAFT 09/15/2014 SHARIF JOHNSON MD 782.2 LOCALIZED SUPERFICIAL SWELLING MASS OR LUMP 09/15/2014 SHANIQUE VEGA MD 414.00 CORONARY ATHEROSCLEROSIS OF UNSPECIFIED TYPE OF VESSEL [place] OR GRAFT 09/15/2014 SHANIQUE VEGA MD 782.2 LOCALIZED SUPERFICIAL SWELLING MASS OR LUMP 09/15/2014 SHARIF JOHNSON MD 414.00 CORONARY ATHEROSCLEROSIS OF UNSPECIFIED TYPE OF VESSEL [place] OR GRAFT 09/15/2014 SHARIF JOHNSON MD 782.2 LOCALIZED SUPERFICIAL SWELLING MASS OR LUMP 09/15/2014 SHARIF JOHNSON MD 414.00 CORONARY ATHEROSCLEROSIS OF UNSPECIFIED TYPE OF VESSEL [place] OR GRAFT 09/15/2014 SHARIF JOHNSON MD 782.2 LOCALIZED SUPERFICIAL SWELLING MASS OR LUMP 09/15/2014 SHANIQUE VEGA MD 414.00 CORONARY ATHEROSCLEROSIS OF UNSPECIFIED TYPE OF VESSEL [place] OR GRAFT 09/15/2014 SHANIQUE VEGA MD2.2 LOCALIZED [...] FACP CCDS Ot 440.20 12/28/2014 BISHNU ROLDAN [facility] CCDS Ot 440.4 12/28/2014 BISHNU ROLDAN [facility] CCDS Ot 441.4 12/28/2014 BISHNU ROLDAN [facility] CCDS Ot 786.09 12/28/2014 BISHNU ROLDAN FAC, [facility] CCDS Ot V58.69 02/07/2015 SASHA [...] MYRNA E Ot 414.01 02/11/2015 SASHA ROLDAN, MYRAN E Ot 427.31 02/11/2015 SASHA ROLDAN, MYRNA [...] ROLDAN, MYRNA E Ot V45.81 02/11/2015 SASHA ROLADN, MYRNA E Ot V46.2 02/11/2015 SASHA ROLDAN, MYRNA E Ot V57.89 02/11/2015 SASHA ROLDAN, MYRNA E Ot 272.4 02/11/2015 SASHA ROLDAN, MYRNA E Ot 285.9 02/11/2015 SASHA ROLDAN, MYRNA E Ot 300.00 02/11/2015 SASHA ROLDAN, MYRNA E Ot 401.9 02/11/2015 SASHA ROLDAN, MYRNA E Ot 414.01 02/11/2015 SASHA ROLDAN, MYRNA E Ot 427.31 02/11/2015 SASHA ROLDAN, MYRNA E Ot 496 02/11/2015 ASSHA ROLDAN, MYRNA E Ot 530.81 02/11/2015 SASHA ROLDAN, MYRNA E Ot 715.31 02/11/2015 SASHA ROLDAN, MYRNA E Ot 715.35 02/11/2015 SAHSA ROLDAN, MYRNA E Ot 721.90 02/11/2015 SASHA [...] ROLDAN, MYRNA E Ot 721.90 02/12/2015 SASHA ROLADN, MYRNA E Ot 733.00 02/12/2015 SASHA ROLDAN, [...] SASHA ROLDAN, MYRNA E Ot 715.35 02/13/2015 SSAHA ROLDAN, MYRNA E Ot 721.90 02/13/2015 SASHA [...] MAX DHILLON Ot 424.1 02/17/2015 MAX DHILLON FRAME ALIGNER Ot 785.2 02/17/2015 MAX DHILLON FRAME ALIGNER Ot 786.05 02/17/2015 ANDRE HERNANDEZ DO [place] [...] SASHA ROLDAN, MYRNA E Ot 285.9 02/17/2015 SASAH ROLDAN, MYRNA E Ot 300.00 02/17/2015 SASHA [...] ROLDAN, MYRNA E Ot 530.81 02/21/2015 SASHA ORLDAN, MYRNA E Ot 715.31 02/21/2015 SASHA ROLDAN, [...] SASHA ROLDAN, MYRNA E Ot 788.43 02/21/2015 SASAH ROLDAN, MYRNA E Ot V15.82 02/21/2015 SASHA ROLDAN, MYRNA E Ot V45.81 02/21/2015 SASHA ROLDAN, MYRNA E Ot V46.2 02/21/2015 SASHA ROLDAN, MYRNA E Ot V57.89 02/22/2015 SASHA ROLDAN, MYRNA E Ot 272.4 02/22/2015 SASHA ROLDAN, MYRNA E Ot 285.9 02/22/2015 SASHA ROLDAN, MYRNA E Ot 300.00 02/22/2015 SASHA ROLDAN, MYRNA E Ot 401.9 02/22/2015 SASHA ROLDAN, MYRNA E Ot 414.01 02/22/2015 SASHA ROLADN, MYRNA E Ot 427.31 02/22/2015 SASHA ROLDAN, [...] MYRNA E Ot V45.81 02/24/2015 SASHA ROLDAN, MRYNA E Ot V46.2 02/24/2015 SASHA ROLDAN, MYRNA [...] MD Ot 724.4 02/27/2015 MAX DHILLON Andre FRAME ALIGNER Ot 401.1 02/27/2015 JACQUIE MAX Andre FRAME ALIGNER Ot 424.1 02/27/2015 JACQUIEMAX FRAME ALIGNER Ot 785.2 02/27/2015 JACQUIE MAX Andre FRAME ALIGNER Ot 786.05 02/27/2015 MARYANDRE Garcia DO Ot 715.91 02/27/2015 ANDRE HERNANDEZ DO Ot 727.61 02/27/2015 DIANNA MACHADO MD Ot 278.00 02/27/2015 DIANNA MACHADO MD Ot 721.3 02/27/2015 DIANNA MACHADO MD Ot 724.6 02/27/2015 DIANNA MACHADO MD Ot 729.1 02/27/2015 IDANNA MACHADO MD Ot V58.69 02/27/2015 DIANNA MACHADO [...] VEGA MD Ot 041.3 02/28/2015 GARY ROLDAN, SAHNIQUE F Ot 298.9 02/28/2015 GARY ROLDAN, SHANIQUE [...] ELIZABETH ROLDAN, SHARIF N Ot 300.01 03/11/2015 ELZIABETH ROLDAN, SHARIF N Ot 305.1 03/11/2015 ELIZABETH [...] SHARIF N Ot 799.02 03/11/2015 ELIZABETH ROLDAN, HSARIF N Ot 920 03/11/2015 ELIZBAETH ROLDAN, SHARIF N Ot E849.7 03/11/2015 ELIZABETH [...] SHARIF N Ot 272.4 03/14/2015 ELIZABETH ROLDAN, HSARIF N Ot 275.2 03/14/2015 ELIZABETH ROLDAN, SHARIF [...] ROLDAN, SHARIF N Ot 428.33 03/14/2015 ELIZABETH ORLDAN, SHARIF N Ot 433.10 03/14/2015 ELIZABETH ROLDAN, [...] ROLDAN, SHARIF N Ot 272.4 03/15/2015 ELIZABETH ROLDNA, SHARIF N Ot 275.2 03/15/2015 ELIZABETH ROLDAN, [...] MENDOZA MD Ot 724.4 12/07/2015 MAX DHILLON FRAME ALIGNER Ot 401.1 12/07/2015 MAX DHILLON FRAME ALIGNER Ot 424.1 12/07/2015 MAX DHILLON FRAME ALIGNER Ot 785.2 12/07/2015 MAX DHILLON Ot 786.05 [...] MD, Ot I25.10 ATHSCL HEART DISEASE OF [place] CORONARY 05/16/2016 PRUDENCE SHAW MD Ot I71.4 [...] 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 BYPASS GRAFT 11/22/2016 ULL NORWOOD MD, Ot 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 [...] INCONTINENCE 11/28/2016 LUL NORWOOD MD, Ot Z79.84 INTERMEDIATE (CURRENT) USE OF ORAL HYPOGLYC 11/29/2016 LUL NORWOOD MD Ot E11.9 TYPE 2 DIABETES MELLITUS WITHOUT COMPLIC 11/29/2016 LUL NORWOOD MD, Ot N32.81 OVERACTIVE BLADDER 11/29/2016 LUL NORWOOD MD, Ot 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 (ISD) 11/29/2016 LUL NORWOOD MD, Ot 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10 ATHSCL HEART DISEASE OF [place] CORONARY 10/08/2017 CHELLE GOETZ MD, FACC FACP CCDS Ot I48.0 PAROXYSMAL ATRIAL FIBRILLATION 10/08/2017 CHELLE GOETZ MD, FACC FACP CCDS Ot I65.29 OCCLUSION AND STENOSIS OF UNSPECIFIED CA 10/15/2017 CHELLE GOETZ MD, FACC FACP CCDS Ot I11.0 HYPERTENSIVE HEART DISEASE WITH HEART FA 10/15/2017 CHELLE GOETZ MD, FACC FACP CCDS Ot I25.10 ATHSCL HEART DISEASE OF [place] CORONARY 10/15/2017 CHELLE GOETZ MD, FACC FACP [...] MD, FACC FACP CCDS Ot Z79.899 OTHER ELECTRICAL DESIGN TECHNICIAN (CURRENT) DRUG THERAPY 10/15/2017 CHELLE GOETZ MD, [...] FACP CCDS Ot Z91.19 PATIENT'S NONCOMPLIANCE W [facility] 10/15/2017 BISHNU ROLDAN FACC, CHELLE FACP CCDS Ot 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 BYPASS GRAFT 10/15/2017 BISHNU ROLDAN FACC, ALI FACP CCDS Ot Z96.641 PRESENCE OF RIGHT ARTIFICIAL HIP JOINT 10/26/2017 BISHNU ROLDAN FACC, ALI FACP CCDS Ot E78.4 OTHER HYPERLIPIDEMIA 10/26/2017 BISHNU ROLDAN FACC, ALI FACP CCDS Ot I10 ESSENTIAL (PRIMARY) HYPERTENSION 10/26/2017 BISHNU ROLDAN FACC, ALI FACP CCDS Ot I25.10 ATHSCL HEART DISEASE OF [place] CORONARY 10/26/2017 BISHNU ROLDAN FACC, ALI FACP CCDS Ot I48.0 PAROXYSMAL ATRIAL FIBRILLATION 10/26/2017 BISHNU ROLDAN FACC, ALI FACP CCDS Ot I71.4 ABDOMINAL AORTIC ANEURYSM, WITHOUT RUPTU 10/29/2017 BISHNU ROLDAN FACC ALI FACP CCDS Ot E78.4 OTHER HYPERLIPIDEMIA 10/29/2017 BISHNU ROLDAN FACC, ALI FACP CCDS Ot I10 ESSENTIAL (PRIMARY) HYPERTENSION 10/29/2017 BISHNU ROLDAN FACC, ALI FACP CCDS Ot I25.10 ATHSCL HEART DISEASE OF [place] CORONARY 10/29/2017 BISHNU ROLDAN FACC, CHELLE FACP CCDS Ot I48.0 PAROXYSMAL ATRIAL FIBRILLATION 10/29/2017 BISHNU ROLDAN FACC, ALI FACP CCDS Ot I71.4 ABDOMINAL AORTIC ANEURYSM, WITHOUT RUPTU 10/29/2017 CHELLE GOETZ MD, FACC FACP CCDS Ot E78.5 HYPERLIPIDEMIA, UNSPECIFIED 10/29/2017 BISHNU ROLDAN FACC, ALI FACP CCDS Ot I10 ESSENTIAL (PRIMARY) HYPERTENSION 10/29/2017 BISHNU ROLDAN FACC, ALI FACP CCDS Ot I25.10 ATHSCL HEART DISEASE OF [place] CORONARY 10/29/2017 BISHNU ROLDAN FACC, ALI FACP [...] CCDS Ot I25.10 ATHSCL HEART DISEASE OF [place] CORONARY 10/29/2017 BISHNU ROLDAN FACC, ALI FACP [...] CCDS Ot I25.10 ATHSCL HEART DISEASE OF [place] CORONARY 11/05/2017 BISHNU HDEZC, ALI FACP CCDS Ot I48.0 PAROXYSMAL ATRIAL FIBRILLATION 11/05/2017 BISHNU HDEZC, ALI FACP CCDS Ot I71.4 ABDOMINAL AORTIC ANEURYSM, WITHOUT RUPTU 11/07/2017 BISHNU ROLDAN FACC, ALI FACP CCDS Ot E78.4 OTHER HYPERLIPIDEMIA 11/07/2017 BISHNU HDEZC, ALI FACP CCDS Ot I10 ESSENTIAL (PRIMARY) HYPERTENSION 11/07/2017 BISHNU HDEZC, ALI FACP CCDS Ot I25.10 ATHSCL HEART DISEASE OF [place] CORONARY 11/07/2017 BISHNU HDEZC, ALI FACP CCDS Ot I48.0 PAROXYSMAL ATRIAL FIBRILLATION 11/07/2017 BISHNU HDEZC, ALI FACP CCDS Ot I71.4 ABDOMINAL AORTIC ANEURYSM, WITHOUT RUPTU 11/08/2017 BISHNU HDEZC, ALI FACP CCDS Ot E78.5 HYPERLIPIDEMIA, UNSPECIFIED 11/08/2017 BISHNU HDEZC, ALI FACP CCDS Ot I10 ESSENTIAL (PRIMARY) HYPERTENSION 11/08/2017 BISHNU HDEZC, ALI FACP CCDS Ot I25.10 ATHSCL HEART DISEASE OF [place] CORONARY 11/08/2017 BISHNU ROLDAN FACC, ALI FACP CCDS Ot I48.0 PAROXYSMAL ATRIAL FIBRILLATION 11/08/2017 BISHNU HDEZC, ALI FACP CCDS Ot I65.29 OCCLUSION AND STENOSIS OF UNSPECIFIED CA 11/08/2017 BISHNU ROLDAN FACC, ALI FACP CCDS Ot R06.02 SHORTNESS OF BREATH 11/08/2017 BISHNU ROLDAN FACC, ALI FACP CCDS Ot E78.5 HYPERLIPIDEMIA, UNSPECIFIED 11/08/2017 BISHNU MD FACC, ALI FACP CCDS Ot I10 ESSENTIAL (PRIMARY) HYPERTENSION 11/08/2017 BISHNU MD FACC, ALI FACP CCDS Ot I25.10 ATHSCL HEART DISEASE OF [place] CORONARY 11/08/2017 BISHNU ROLDAN FACC, ALI FACP CCDS Ot I48.0 PAROXYSMAL ATRIAL FIBRILLATION 11/08/2017 BISHNU ROLDAN FACC, ALI FACP CCDS Ot I65.29 OCCLUSION AND STENOSIS OF UNSPECIFIED CA 11/15/2017 BISHNU ROLADN FACC, ALI FACP CCDS Ot E78.4 OTHER HYPERLIPIDEMIA 11/15/2017 BISHNU ROLDAN FACC, ALI FACP CCDS Ot I10 ESSENTIAL (PRIMARY) HYPERTENSION 11/15/2017 BISHNU ROLDAN FACC, ALI FACP CCDS Ot I25.10 ATHSCL HEART DISEASE OF [place] CORONARY 11/15/2017 BISHNU ROLDAN [facility], ALI FACP CCDS Ot I48.0 PAROXYSMAL ATRIAL FIBRILLATION 11/15/2017 BISHNU ROLDAN FAC, ALI FACP CCDS Ot I71.4 ABDOMINAL AORTIC ANEURYSM, WITHOUT RUPTU 11/20/2017 LUL NORWOOD MD Ot R32 UNSPECIFIED URINARY INCONTINENCE 11/20/2017 LUL NORWOOD MD Ot R33.9 RETENTION OF URINE, UNSPECIFIED 11/20/2017 LUL NORWOOD MD Ot Z01.818 ENCOUNTER FOR OTHER PREPROCEDURAL EXAMIN 11/25/2017 LUL NORWOOD MD Ot R32 UNSPECIFIED URINARY INCONTINENCE 11/25/2017 LUL NORWOOD MD Ot R33.9 RETENTION OF URINE, UNSPECIFIED 11/25/2017 LUL NORWOOD MD Ot Z01.818 ENCOUNTER FOR OTHER PREPROCEDURAL EXAMIN 11/25/2017 LUL NORWOOD MD Ot R32 UNSPECIFIED URINARY INCONTINENCE 11/25/2017 LUL NORWOOD MD Ot R33.9 RETENTION OF URINE, UNSPECIFIED 11/25/2017 LUL NORWOOD MD Ot Z01.818 ENCOUNTER FOR OTHER PREPROCEDURAL EXAMIN 11/25/2017 LUL NORWOOD MD Ot R32 UNSPECIFIED URINARY INCONTINENCE 11/25/2017 CUCO ROLDAN, LUL Garcia Ot R33.9 RETENTION OF URINE, UNSPECIFIED 11/25/2017 CUCO ROLDAN, LUL Garcia Ot Z01.818 ENCOUNTER FOR OTHER PREPROCEDURAL EXAMIN 11/25/2017 LUL NORWOOD MD Ot R32 UNSPECIFIED URINARY INCONTINENCE 11/25/2017 CUCO ROLDAN, LUL Garcia Ot R33.9 RETENTION OF URINE, UNSPECIFIED 11/25/2017 CUCO ROLDAN, LUL Garcia Ot Z01.818 ENCOUNTER FOR OTHER PREPROCEDURAL EXAMIN 11/25/2017 LUL NORWOOD MD Ot R32 UNSPECIFIED URINARY INCONTINENCE 11/25/2017 LUL NORWOOD MD Ot R33.9 RETENTION OF URINE, UNSPECIFIED 11/25/2017 CUCO ROLDAN, LUL Garcia Ot Z01.818 ENCOUNTER FOR OTHER PREPROCEDURAL EXAMIN 11/26/2017 SATHISH ABAD FRAME ALIGNER Ot 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 11/26/2017 SATHISH ABAD FRAME ALIGNER Ot 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 11/26/2017 SATHISH ABAD FRAME ALIGNER Ot I71.4 ABDOMINAL AORTIC ANEURYSM, WITHOUT RUPTU 11/26/2017 SATHISH ABAD FRAME ALIGNER Ot K42.9 UMBILICAL HERNIA WITHOUT OBSTRUCTION OR 11/26/2017 SATHISH ABAD FRAME ALIGNER Ot K76.89 OTHER SPECIFIED DISEASES OF LIVER 11/26/2017 SATHISH ABAD FRAME ALIGNER Ot N28.1 CYST OF KIDNEY, ACQUIRED 11/26/2017 LUL NORWOOD MD Ot E11.9 TYPE 2 DIABETES MELLITUS WITHOUT COMPLIC 11/26/2017 LUL NORWOOD MD Ot E66.9 OBESITY, UNSPECIFIED 11/26/2017 LUL NORWOOD MD Ot E78.5 HYPERLIPIDEMIA, UNSPECIFIED 11/26/2017 LUL NORWOOD MD Ot F32.9 MAJOR DEPRESSIVE DISORDER, SINGLE EPISOD 11/26/2017 LUL NORWOOD MD Ot G89.18 OTHER ACUTE POSTPROCEDURAL PAIN 11/26/2017 LUL NORWOOD MD Ot I10 ESSENTIAL (PRIMARY) HYPERTENSION 11/26/2017 LUL NORWOOD MD, Ot I25.10 ATHSCL HEART DISEASE OF [place] CORONARY 11/26/2017 LUL NORWOOD MD, Ot J44.9 CHRONIC OBSTRUCTIVE PULMONARY DISEASE, U 11/26/2017 LUL NORWOOD MD, Ot N31.9 NEUROMUSCULAR DYSFUNCTION OF BLADDER, UN 11/26/2017 LUL NORWOOD MD, Ot N39.3 STRESS INCONTINENCE (FEMALE) (MALE) 11/26/2017 LUL NORWOOD MD, Ot R10.84 GENERALIZED ABDOMINAL PAIN 11/26/2017 LUL NORWOOD MD, Ot R33.9 RETENTION OF URINE, UNSPECIFIED 11/26/2017 LUL NORWOOD MD, Ot Z68.31 BODY MASS INDEX (BMI) 31.0-31.9, ADULT 11/26/2017 LUL NORWOOD MD, Ot Z79.01 INTERMEDIATE (CURRENT) USE OF ANTICOAGULANT 11/26/2017 LUL NORWOOD MD, Ot Z79.82 INTERMEDIATE (CURRENT) USE OF ASPIRIN 11/26/2017 LUL NORWOOD MD, Ot Z79.899 OTHER INTERMEDIATE (CURRENT) DRUG THERAPY 11/26/2017 LUL NORWOOD MD, Ot Z87.891 PERSONAL HISTORY OF NICOTINE DEPENDENCE 11/27/2017 PRUDENCE SHAW MD, Ot E03.9 HYPOTHYROIDISM, UNSPECIFIED 11/27/2017 PRUDENCE SHAW MD Ot E11.9 TYPE 2 DIABETES MELLITUS WITHOUT COMPLIC 11/27/2017 PRUDENCE SHAW MD, Ot E78.00 PURE HYPERCHOLESTEROLEMIA, UNSPECIFIED 11/27/2017 PRUDENCE SHAW MD, Ot E86.0 DEHYDRATION 11/27/2017 PRUDENCE SHAW MD, Ot F32.9 MAJOR DEPRESSIVE DISORDER, SINGLE EPISOD 11/27/2017 PRUDENCE SHAW MD, Ot F41.9 ANXIETY DISORDER, UNSPECIFIED 11/27/2017 PRUDENCE SHAW MD, Ot I11.0 HYPERTENSIVE HEART DISEASE WITH HEART FA 11/27/2017 PRUDENCE SHAW MD, Ot I25.10 ATHSCL HEART DISEASE OF [place] CORONARY 11/27/2017 PRUDENCE SHAW MD, Ot I48.0 PAROXYSMAL ATRIAL FIBRILLATION 11/27/2017 PRUDENCE SHAW MD, Ot I50.32 CHRONIC DIASTOLIC (CONGESTIVE) HEART KATHRYN 11/27/2017 PRUDENCE SHAW MD, Ot 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 11/27/2017 PRUDENCE SHAW MD, Ot I73.9 PERIPHERAL VASCULAR DISEASE, UNSPECIFIED 11/27/2017 PRUDENCE SHAW MD, Ot J44.9 CHRONIC OBSTRUCTIVE PULMONARY DISEASE, U 11/27/2017 PRUDENCE SHAW MD, Ot J45.909 UNSPECIFIED ASTHMA, UNCOMPLICATED 11/27/2017 PRUDENCE SHAW MD, Ot K59.09 OTHER CONSTIPATION 11/27/2017 PRUDENCE SHAW MD, Ot N39.0 URINARY TRACT INFECTION, SITE NOT SPECIF 11/27/2017 PRUDENCE SHAW MD, Ot T83.510A I/I REACT D/T CYSTOSTOMY CATHETER, INITI 11/27/2017 PRUDENCE SHAW MD, Ot 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.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 11/27/2017 PRUDENCE SHAW MD, Ot Z79.82 INTERMEDIATE (CURRENT) USE OF ASPIRIN 11/27/2017 PRUDENCE SHAW MD, Ot Z79.84 ELECTRICAL DESIGN TECHNICIAN (CURRENT) USE OF ORAL HYPOGLYC 11/27/2017 PRUDENCE SHAW MD, Ot Z79.899 OTHER INTERMEDIATE (CURRENT) DRUG THERAPY 11/27/2017 PRUDENCE SHAW MD, Ot Z87.891 PERSONAL HISTORY OF NICOTINE DEPENDENCE 11/27/2017 PRUDENCE SHAW MD, Ot 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 BYPASS GRAFT 11/27/2017 PRUDENCE SHAW MD Ot Z96.641 PRESENCE OF RIGHT ARTIFICIAL HIP JOINT 12/03/2017 SATHISH ABAD Ot 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 12/03/2017 SATHISH ABADP Ot 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 12/03/2017 SATHISH ABADP Ot I71.4 ABDOMINAL AORTIC ANEURYSM, WITHOUT RUPTU 12/03/2017 SATHISH ABADP Ot I77.2 RUPTURE OF ARTERY 12/03/2017 SATHISH ABADP Ot J43.9 EMPHYSEMA, UNSPECIFIED 12/03/2017 SATHISH ABADP Ot 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 12/08/2017 SATHISH ABAD FRAME ALIGNER Ot 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 12/08/2017 SATHISH ABAD FRAME ALIGNER Ot 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 12/08/2017 SATHISH ABAD FRAME ALIGNER Ot I71.4 ABDOMINAL AORTIC ANEURYSM, WITHOUT RUPTU 12/08/2017 SATHISH ABAD FRAME ALIGNER Ot I77.2 RUPTURE OF ARTERY 12/08/2017 SATHISH ABAD FRAME ALIGNER Ot J43.9 EMPHYSEMA, UNSPECIFIED 12/08/2017 SATHISH ABAD FRAME ALIGNER Ot 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 Procedures Code [place] [address] INDIV PSYTX 45/50 MIN 10/22/2012 60334 ROUTINE VENIPUNCTURE 10/24/2012 65633 BMP 10/24/2012 83113 MAGNESIUM 10/24/2012 1636349 GFR CALC (RESULT ONLY) 10/24/2012 2000F BLOOD PRESSURE CHECK 11/14/2012 15847 ROUTINE VENIPUNCTURE 01/15/2013 22126 BMP 01/15/2013 5645764 GFR CALC (RESULT ONLY) 01/15/2013 81786 LIPID PANEL 01/15/2013 56546 ROUTINE VENIPUNCTURE 05/06/2013 16234 A1C (IN-HOUSE) 05/06/2013 71401 CMP 05/06/2013 13890 MAGNESIUM 05/06/2013 8555870 GFR CALC (RESULT ONLY) 05/06/2013 52533 CPK 05/06/2013 62781 PSYTX PT&/FAMILY 45 MINUTES 05/14/2013 94587 OXIMETRY 07/01/2013 J7613 ALBUTEROL UNIT DOSE FORM INHALED 07/01/2013 J2930 SOLUMEDROL INJ 07/02/2013 78233 THERAPUTIC INJ SQ/IM 07/02/2013 33379 OXIMETRY 07/02/2013 2000F BLOOD PRESSURE CHECK 07/02/2013 G0008 FLU ADMINISTRATION ( MEDICARE ONLY) 08/06/2013 17275 OXIMETRY 08/13/2013 31401 ROUTINE VENIPUNCTURE 08/31/2013 35463 GLUCOSE 08/31/2013 35560 LIPID PANEL 08/31/2013 85052 A1C (IN-HOUSE) 09/08/2013 29412 XRAY CHEST 2 VIEW 11/12/2013 58845 MEASURE BLOOD OXYGEN LEVEL 11/12/2013 37639 THERAPUTIC INJ SQ/IM 12/11/2013 J2930 SOLUMEDROL INJ 12/11/2013 99573 A1C (IN-HOUSE) 12/11/2013 41556 ROUTINE VENIPUNCTURE 12/15/2013 08386 EKG, TRACING (IN-HOUSE) 12/15/2013 15096 XRAY CHEST 2 VIEW 12/15/2013 49490 ECHO 2D 12/15/2013 63078 OXIMETRY 12/15/2013 61419 CBC 12/15/2013 0004021 GFR CALC (RESULT ONLY) 12/15/2013 46911 CMP 12/15/2013 48861 MAGNESIUM 12/15/2013 35614 BNP 12/16/2013 09773 ROUTINE VENIPUNCTURE 01/13/2014 08183 OXIMETRY 01/13/2014 9106444 GFR CALC (RESULT ONLY) 01/14/2014 82381 CMP 01/14/2014 22761 MAGNESIUM 01/14/2014 01367 OXIMETRY 01/28/2014 14636 ROUTINE VENIPUNCTURE 03/24/2014 51409 LIPID PANEL 03/24/2014 16593 ROUTINE VENIPUNCTURE 07/02/2014 5711604 GFR CALC (RESULT ONLY) 07/02/2014 80325 CMP 07/02/2014 21087 LIPID PANEL 07/02/2014 28940 [employer] 08/17/2014 60153 US SOFT TISSUE (SPECIFY LOCATION) 09/15/2014 CARDIOLOG CHELLE GOETZ 09/15/2014 G0008 FLU ADMINISTRATION ( MEDICARE ONLY) 09/15/2014 PULMONARY WILL CASPER 09/15/2014 97038 US ABDOMINAL ULTRASOUND, COMPLETE 11/26/2014 20526 LEFT HEART CATH 01/25/2015 68201 US CAROTID DOPPLER 01/25/2015 80343 OXIMETRY 01/25/[address] ANGIO, EXTREMITY, LOWER 02/08/2015 Results Test [...] - 06:10 MRSA SCREEN RESULT MRSA ISOLATED [facility] Automated blood complete blood count (hemogram) panel [...] Staphylococcus aureus (MRSA) screening culture NEG NRG Methicillin resistant Staphylococcus aureus (MRSA) screening culture - 07:30 MRSA SCREEN RESULT MRSA ISOLATED NR Capillary blood glucose measurement by glucometer (mass/volume) [...] FOR INFLUENZA A AND B ANTIGENS BY [facility] Complete blood count (CBC) with automated white [...] Blood erythrocyte morphology finding identification NORMAL NRG Bacterial blood culture - 11/26/17 17:32 Bacterial blood culture NG NRG Complete urinalysis with reflex to culture [...] urinalysis with reflex to culture YES NRG Bacterial urine culture - 11/26/17 17:50 Bacterial urine culture NG NRG Bacterial blood culture - 11/26/17 18:00 Bacterial blood culture NG NRG Capillary blood glucose measurement by glucometer [...] NRG Blood erythrocyte morphology finding identification NORMAL NR Capillary blood glucose measurement by glucometer (mass/volume) - 11/27/17 11: 15 Capillary blood glucose measurement by glucometer (mass/volume) 141 mg/dL 70-110 Influenza virus A and B antigen detection - 12/14/17 20:39 FLU RESULT NEGATIVE FOR INFLUENZA A AND B ANTIGENS BY [facility] NR Complete blood count (CBC) with automated white blood cell (WBC) differential - 12/14/17 20:40 Blood leukocytes automated count (number/volume) 11.0 10*3/uL 4.3-11.0 Blood erythrocytes automated count (number/volume) 4.47 10*6/uL 4.35-5.85 Venous blood hemoglobin measurement (mass/volume) 13.2 g/dL 11.5-16.0 Blood hematocrit (volume fraction) 39 % 35-52 Automated erythrocyte mean corpuscular volume 87 [foz_us] 80-99 Automated erythrocyte mean corpuscular hemoglobin (mass per erythrocyte) 30 pg 25-34 Automated erythrocyte mean corpuscular hemoglobin concentration measurement ( mass/volume) 34 g/dL 32-36 Automated erythrocyte distribution width ratio 14.1 % 10.0-14.5 Automated blood platelet count (count/volume) 351 10*3/uL 130-400 Automated blood platelet mean volume measurement 9.9 [foz_us] 7.4-10.4 Automated blood neutrophils/100 leukocytes 68 % 42-75 Automated blood lymphocytes/100 leukocytes 20 % 12-44 Blood monocytes/100 leukocytes 11 % 0-12 Automated blood eosinophils/100 leukocytes 2 % 0-10 Automated blood basophils/100 leukocytes 0 % 0-10 Blood neutrophils automated count (number/volume) 7.5 10*3 1.8-7.8 Blood lymphocytes automated count (number/volume) 2.1 10*3 1.0-4.0 Blood monocytes automated count (number/volume) 1.2 10*3 0.0-1.0 Automated eosinophil count 0.2 10*3/uL 0.0-0.3 Automated blood basophil count (count/volume) 0.0 10*3/uL 0.0-0.1 Blood lactic acid measurement (moles/volume) - 12/14/17 20:40 Blood lactic acid measurement (moles/volume) 1.80 mmol/L 0.50-2.00 Comprehensive metabolic panel - 12/14/17 20:40 Serum or plasma sodium measurement (moles/volume) 136 mmol/L 135-145 Serum or plasma potassium measurement (moles/volume) 4.7 mmol/L 3.6-5.0 Serum or plasma chloride measurement (moles/volume) 102 mmol/L 98-107 Carbon dioxide 24 mmol/L 21-32 Serum or plasma anion gap determination (moles/volume) 10 mmol/L 5-14 Serum or plasma urea nitrogen measurement (mass/volume) 15 mg/dL 7-18 Serum or plasma creatinine measurement (mass/volume) 0.83 mg/dL 0.60-1.30 Serum or plasma urea nitrogen/creatinine mass ratio 18 NRG Serum or plasma creatinine measurement with calculation of estimated glomerular filtration rate > NRG Serum or plasma glucose measurement (mass/volume) 132 mg/dL 70-105 Serum or plasma calcium measurement (mass/volume) 9.7 mg/dL 8.5-10.1 Serum or plasma total bilirubin measurement (mass/volume) 0.6 mg/dL 0.1-1.0 Serum or plasma alkaline phosphatase measurement (enzymatic activity/volume) 86 U/L 40-136 Serum or plasma aspartate aminotransferase measurement (enzymatic activity/ volume) 25 U/L 5-34 Serum or plasma alanine aminotransferase measurement (enzymatic activity/volume ) 24 U/L 0-55 Serum or plasma protein measurement (mass/volume) 7.2 g/dL 6.4-8.2 Serum or plasma albumin measurement (mass/volume) 3.5 g/dL 3.2-4.5 Magnesium - 12/14/17 20:40 Magnesium 1.6 mg/dL 1.8-2.4 Serum or plasma C reactive protein measurement (mass/volume) - 12/14/17 20:40 Serum or plasma C reactive protein measurement (mass/volume) 2.06 mg /dL 0.00-0.50 Complete urinalysis with reflex to culture - 12/14/17 20:50 Urine color determination YELLOW NRG Urine clarity determination CLEAR NRG Urine pH measurement by test strip 5 5-9 Specific gravity of urine by test strip 1.015 1.016- 1.022 Urine protein assay by test strip, semi-quantitative 2+ NEGATIVE Urine glucose detection by automated test strip NEGATIVE NEGATIVE Erythrocytes detection in urine sediment by light microscopy 2+ NEGATIVE Urine ketones detection by automated test strip NEGATIVE NEGATIVE Urine nitrite detection by test strip NEGATIVE NEGATIVE Urine total bilirubin detection by test strip NEGATIVE NEGATIVE Urine urobilinogen measurement by automated test strip (mass/volume) NORMAL NORMAL Urine leukocyte esterase detection by dipstick 3+ NEGATIVE Automated urine sediment erythrocyte count by microscopy (number/high power field) [HPF] NRG Automated urine sediment leukocyte count by microscopy (number/high power field ) [HPF] NRG Bacteria detection in urine sediment by light microscopy FEW NRG Squamous epithelial cells detection in urine sediment by light microscopy 10-25 NRG Crystals detection in urine sediment by light microscopy NONE NRG Casts detection in urine sediment by light microscopy NONE NRG Mucus detection in urine sediment by light microscopy SMALL NRG Complete urinalysis with reflex to culture YES NRG Encounters ACCT No. Visit Date/Time Discharge Status Pt. Type Provider Facility Loc./Unit Complaint [id number] 03/18/2015 16:54:00 03/18/2015 23:59:59 CLS Outpatient SHANIQUE VEGA MD [id number] 01/25/2015 09:06:00 01/25/2015 23:59:59 CLS Outpatient SHARIF JOHNSON MD [id number] 12/06/2014 05:51:00 12/06/2014 23:59:59 CLS Outpatient SHANIQUE VEGA MD [id number] 11/26/2014 15:23:00 11/26/2014 23:59:59 CLS Outpatient SHARIF JOHNSON MD [id number] 11/26/2014 15:23:00 11/26/2014 23:59:59 CLS Outpatient SHARIF JOHNSON MD [id number] 11/13/2014 15:20:00 11/13/2014 23:59:59 CLS Outpatient ILIR MIKE VILLALOBOS [id number] 10/27/2014 13:31:00 10/27/2014 23:59:59 CLS Outpatient MASSIEL VEGA [id number] 09/15/2014 16:03:00 09/15/2014 23:59:59 CLS Outpatient SHARIF JOHNSON MD [id number] 08/17/2014 15:49:00 08/17/2014 23:59:59 CLS Outpatient SHARIF JOHNSON MD [id number] 07/29/2014 10:54:00 07/29/2014 23:59:59 CLS Outpatient DESI BAIG APRN [id number] 07/02/2014 11:34:00 07/02/2014 23:59:59 CLS Outpatient SHARIF JOHNSON MD [id number] 06/18/2014 14:51:00 06/18/2014 23:59:59 CLS Outpatient SHARIF JOHNSON MD [id number] 06/02/2014 14:58:00 06/02/2014 23:59:59 CLS Outpatient DESI BAIG APRN [id number] 05/18/2014 14:07:00 05/18/2014 23:59:59 CLS Outpatient SHARIF JOHNSON MD [id number] 03/24/2014 15:01:00 03/24/2014 23:59:59 CLS Outpatient SHARIF JOHNSON MD [id number] 03/11/2014 13:43:00 03/11/2014 23:59:59 CLS Outpatient SHARIF JOHNSON MD [id number] 01/28/2014 14:29:00 01/28/2014 23:59:59 CLS Outpatient SHARIF JOHNSON MD [id number] 01/28/2014 14:29:00 01/28/2014 23:59:59 CLS Outpatient SHARIF JOHNSON MD [id number] 01/13/2014 15:39:00 01/13/2014 23:59:59 CLS Outpatient CAROLINE MENDOZA MD [id number] 01/13/2014 15:39:00 01/13/2014 23:59:59 CLS Outpatient CAROLINE MENDOZA MD [id number] 12/15/2013 15:34:00 12/15/2013 23:59:59 CLS Outpatient MIKE HAZEL DO [id number] 12/15/2013 15:34:00 12/15/2013 23:59:59 CLS Outpatient MAX DHILLON APRN [id number] 12/11/2013 11:52:00 12/11/2013 23:59:59 CLS Outpatient MAX DHILLON APRN [id number] 11/12/2013 16:30:00 11/12/2013 23:59:59 CLS Outpatient SHAHNAZ MARQUEZ APRN Jd [id number] 11/09/2013 12:50:00 11/09/2013 23:59:59 CLS Outpatient AUDIE MARC APRN [id number] 11/03/2013 09:32:00 11/03/2013 23:59:59 CLS Outpatient DESI BAIG APRN [id number] 10/20/2013 09:44:00 10/20/2013 23:59:59 CLS Outpatient DESI BAIG APRN [id number] 09/22/2013 14:05:00 09/22/2013 23:59:59 CLS Outpatient CAROLINE MENDOZA MD [id number] 09/08/2013 08:20:00 09/08/2013 23:59:59 CLS Outpatient CAROLINE MENDOZA MD [id number] 08/31/2013 08:05:00 08/31/2013 23:59:59 CLS Outpatient CAROLINE MENDOZA MD [id number] 08/07/2013 11:43:00 08/07/2013 23:59:59 CLS Outpatient MARIA DE JESUS BTULER DO [id number] 01/22/2013 09:37:00 01/22/2013 23:59:59 CLS Outpatient MARIA DE JESUS BUTLER DO [id number] 01/15/2013 10:49:00 01/15/2013 23:59:59 CLS Outpatient CAROLINE MENDOZA MD [id number] 01/15/2013 10:49:00 01/15/2013 23:59:59 CLS Outpatient CAROLINE MENDOZA MD [id number] 12/23/2012 13:28:00 12/23/2012 23:59:59 CLS Outpatient MARIA DE JESUS BUTLER DO [id number] 11/24/2012 14:22:00 11/24/2012 23:59:59 CLS Outpatient MIKE HAZEL DO [id number] 11/14/2012 13:45:00 11/14/2012 23:59:59 CLS Outpatient MIKE HAZEL DO [id number] 10/24/2012 13:17:00 10/24/2012 23:59:59 CLS Outpatient SHANIQUE VEGA MD [id number] 10/24/2012 13:17:00 10/24/2012 23:59:59 CLS Outpatient [id number] 10/21/2012 10:34:00 10/21/2012 23:59:59 CLS Outpatient [id number] 09/11/2012 11:29:00 09/11/2012 23:59:59 CLS Outpatient MARIA DE JESUS BUTLER DO [id number] 07/27/2013 11:07:00 Document Registration [id number] 07/02/2013 08:45:00 Document Registration [id number] 07/01/2013 11:44:00 Document Registration [id number] 07/01/2013 11:44:00 Document Registration [id number] 06/05/2013 08:35:00 Document Registration [id number] 05/13/2013 09:45:00 Document Registration [id number] 05/06/2013 10:52:00 Document Registration [id number] 04/21/2013 11:00:00 Document Registration [id number] 03/13/2013 11:19:00 Document Registration [id number] 12/02/2017 07:48:00 12/02/2017 23:59:59 CLS Outpatient SATHISH ABAD [facility] RAD I65.23 [id number] 11/26/2017 21:20:00 11/27/2017 11:41:00 DIS Inpatient PRUDENCE SHAW MD [facility] 4TH UROSEPSIS,ABDOMINAL PAIN, FEVER [id number] 11/26/2017 07:18:00 11/26/2017 15:18:00 DIS [facility] [id number] 11/25/2017 13:20:00 11/25/2017 23:59:59 CLS Outpatient SATHISH ABAD [facility] RAD CAROTID ARTERY STENOSIS [id number] 11/19/2017 05:29:00 11/19/2017 14:39:00 DIS Outpatient LUL NORWOOD MD [facility] PREOP INCONTINENCE,RETENTION [id number] 11/04/2017 05:57:00 11/04/2017 23:59:59 CLS Outpatient LUL NORWOOD MD [facility] PREOP INCONTINENCE,RETENTION [id number] 10/15/2017 07:43:00 10/15/2017 23:59:59 CLS Outpatient BISHNU ROLDAN FACC, ALI FACP CCDS [facility] RAD AAA [id number] 10/15/2017 07:43:00 10/15/2017 14:13:00 DIS Outpatient BISHNU ROLDAN FACC, ALI FACP CCDS [facility] CATH AAA,CAD,PAF, HTN [id number] 10/08/2017 07:01:00 10/08/2017 23:59:59 CLS Outpatient BISHNU ROLDAN FACC, ALI FACP CCDS [facility] CARD R06.02 SOB [id number] 10/04/2017 13:16:00 10/04/2017 23:59:59 CLS Outpatient BISHNU ROLDAN FACC, ALI FACP CCDS [facility] CARD SOB [id number] 10/04/2017 07:15:00 10/04/2017 23:59:59 CLS Preadmit BISHNU ROLDAN FACAndrea, ALI FACP CCDS [facility] CARD SOB [id number] 02/12/2017 05:56:00 02/12/2017 11:40:00 DIS Outpatient LUL NORWOOD MD [facility] OAB [id number] 02/06/2017 09:39:00 02/06/2017 13:57:00 DIS Outpatient LUL NORWOOD MD [facility] PREOP OAB [id number] 11/27/2016 06:58:00 11/28/2016 16:00:00 DIS Outpatient LUL NORWOOD MD [facility] ISD [id number] 11/22/2016 10:00:00 11/22/2016 13:00:00 DIS Outpatient CUCO ROLDAN, LUL Garcia [facility] PREOP ISD [id number] 05/14/2016 15:45:00 05/16/2016 13:05:00 DIS Inpatient VALERIA ROLDAN, PRUDENCE Garcia [facility] 4TH [id number] 12/07/2015 07:47:00 12/07/2015 09:30:00 DIS Emergency CHARLES ROLDAN, TARA Arellano [facility] ER [id number] 03/10/2015 11:28:00 03/15/2015 12:00:00 DIS Inpatient ELIZABETH ROLDAN, SHARIF Menjivar [facility] [id number] 02/27/2015 21:37:00 02/28/2015 13:30:00 DIS Inpatient SHANIQUE VEGA MD [facility] SURGICAL ALTERED MENTAL STATUS UTI [id number] 02/25/2015 03:44:00 02/25/2015 06:24:00 DIS Emergency EUNICE ROLDAN, JUAREZ Powell [facility] ER [id number] 02/03/2015 17:50:00 02/24/2015 16:55:00 DIS Inpatient SASHA ROLDAN, MYRNA Mc [facility] IRF [id number] 12/28/2014 09:10:00 12/28/2014 17:30:00 DIS Outpatient BISHNU ROLDAN FACC, CHELLE WALTERS CCDS [facility] [id number] 12/24/2014 13:00:00 12/24/2014 23:59:59 CLS Outpatient SHANIQUE VEGA MD [facility] [id number] 12/20/2014 20:00:00 12/20/2014 23:59:59 CLS Preadmit WILL CASPER DO Via [facility] SLEEP ARRHYTHMIAS,MOOD DISORDER,HYPOXIA [id number] 12/03/2014 09:58:00 12/03/2014 10:47:00 DIS Outpatient DIANNA MACHADO MD [facility] CARD [id number] 12/02/2014 09:45:00 12/02/2014 23:59:59 CLS Preadmit SHARIF JOHNSON MD [facility] RAD NAUSEA,UNABLE TO TOLERATE SOLID FOODS [id number] 11/22/2014 14:15:00 11/22/2014 23:59:59 CLS Preadmit WILL CASPER DO Via [facility] RT HYPOXIA DYPSNEA [id number] 11/11/2014 11:54:00 11/11/2014 14:00:00 DIS Emergency EMANUEL WILKINSON MD [facility] ER [id number] 11/04/2014 17:27:00 11/05/2014 11:35:00 DIS Inpatient SHANIQUE VEGA MD Via [address] [id number] 11/01/2014 22:05:00 11/02/2014 16:45:00 DIS Inpatient MIKE HAZEL DO Via [facility] 4TH [id number] 09/25/2014 11:09:00 09/25/2014 23:59:59 CLS Outpatient [id number] 08/23/2014 12:50:00 08/23/2014 23:59:59 CLS Outpatient DIANNA MACHADO MD [facility] CARD [id number] 08/02/2014 10:32:00 08/02/2014 23:59:59 CLS Outpatient ANDRE HERNANDEZ DO [facility] RAD [id number] 07/23/2014 08:50:00 07/23/2014 23:59:59 CLS Outpatient DIANNA MACHADO MD [facility] CARD [id number] 06/28/2014 12:46:00 06/28/2014 14:24:00 DIS Outpatient DIANNA MACHADO MD [facility] CARD [id number] 06/07/2014 12:24:00 06/07/2014 14:09:00 DIS Emergency RUFINA PEREZ DO Via [facility] ER [id number] 05/24/2014 12:58:00 05/24/2014 13:45:00 DIS Outpatient DIANNA MACHADO MD [facility] CARD [id number] 12/22/2013 12:42:00 12/22/2013 23:59:59 CLS Outpatient MAX DHILLON DE [facility] CARD [id number] 11/12/2013 18:13:00 11/14/2013 14:30:00 DIS Inpatient ELIZABETH ROLDAN, SHARIF Menjivar [facility] 4TH COPD EXACERBATION [id number] 07/02/2013 11:37:00 07/09/2013 12:50:00 DIS Inpatient SHANIQUE VEGA MD Via [address] [id number] 07/02/2013 11:06:00 07/02/2013 23:59:59 CLS Emergency [id number] 06/11/2013 09:24:00 06/11/2013 23:59:59 CLS Outpatient REJI ROLDAN, CAROLINE Magaña [facility] RAD [id number] 2017 21:03:00 Document Registration [id number] 02/17/2015 16:12:00 Document Registration [id number] 02/17/2015 16:12:00 Document Registration [id number] 02/17/2015 16:12:00 Document Registration [id number] 02/17/2015 16:12:00 Document Registration [id number] 09/30/2012 14:20:00 Document Registration [id number] 07/01/2012 14:08:00 Document Registration [id number] 03/11/2012 14:34:00 Document Registration [id number] 10/17/2011 15:30:00 Document Registration [id number] 10/09/2011 15:24:00 Document Registration [id number] 10/06/2011 09:02:00 Document Registration [id number] 07/30/2011 17:25:00 Document Registration [id number] 07/17/2011 16:12:00 Document Registration
== END 2017-12-14 22:55 | disposition home or self-care (01) ==
LOC: EDUNIT# 20:14 → ER 20:15
DX: T83.511A Infection and inflammatory reaction due to indwelling urethral catheter, initial encounter (principal); N39.0 Urinary tract infection, site not specified; J44.9 Chronic obstructive pulmonary disease, unspecified; I25.10 Atherosclerotic heart disease of native coronary artery without angina pectoris; E78.00 Pure hypercholesterolemia, unspecified; I10 Essential (primary) hypertension; E11.9 Type 2 diabetes mellitus without complications; F41.9 Anxiety disorder, unspecified; F32.9 Major depressive disorder, single episode, unspecified; Z82.49 Family history of ischemic heart disease and other diseases of the circulatory system; Z80.0 Family history of malignant neoplasm of digestive organs; Z87.19 Personal history of other diseases of the digestive system; Z79.02 Long term (current) use of antithrombotics/antiplatelets; Z80.1 Family history of malignant neoplasm of trachea, bronchus and lung; Z79.82 Long term (current) use of aspirin; Z79.84 Long term (current) use of oral hypoglycemic drugs; Z79.01 Long term (current) use of anticoagulants; Z87.891 Personal history of nicotine dependence; Z90.89 Acquired absence of other organs; Z95.1 Presence of aortocoronary bypass graft; Z90.710 Acquired absence of both cervix and uterus; Z96.0 Presence of urogenital implants; Z87.01 Personal history of pneumonia (recurrent); W01.0XXA Fall on same level from slipping, tripping and stumbling without subsequent striking against object, initial encounter
CPT/HCPCS: 36415; 70450; 71045; 72125; 80053; 81000; 83605; 83735; 85025; 86141; 87040; 87077; 87088; 87186; 87804

== ENCOUNTER → 2017-12-23 | Outpatient (CLI) | payer MEDICARE, MEDICAID ==
--- NOTE | 2017-12-23 10:48 | Diagnostic Imaging Report ---
INDICATION: Preop for carotid endarterectomy. PA and lateral chest obtained at 10:49 a.m. and compared with 12/14/2017. FINDINGS: There is post-sternotomy change. The heart is mildly enlarged. There are mild chronic appearing increased interstitial markings. There is no acute consolidation or pneumothorax or pleural fluid. IMPRESSION: Cardiomegaly and post-sternotomy change. Mild chronic appearing increased interstitial markings. No acute consolidation or pleural fluid. Dictated by: Dictated on workstation # [id number]
[2017-12-23 11:08] LABS: HEMOGLOBIN 12.2 G/DL (11.5-16.0); MEAN PLATELET VOLUME 9.7 FL (7.4-10.4); RED BLOOD COUNT 4.15 10^6/uL (4.35-5.85); RED CELL DISTRIBUTION WIDTH 14.4 % (10.0-14.5); WHITE BLOOD COUNT 10.3 10^3/uL (4.3-11.0)
[2017-12-23 11:29] LABS: ALANINE AMINOTRANSFERASE 17 U/L (0-55); ALBUMIN 3.4 GM/DL (3.2-4.5); ALKALINE PHOSPHATASE 78 U/L (40-136); BILIRUBIN,TOTAL 0.4 MG/DL (0.1-1.0); BUN/CREATININE RATIO 19; CALCIUM 9.2 MG/DL (8.5-10.1); CARBON DIOXIDE 26 MMOL/L (21-32); CHLORIDE 99 MMOL/L (98-107); CREATININE SERUM 0.78 MG/DL (0.60-1.30); GFR ESTIMATED > 60; GLUCOSE 184 MG/DL (70-105); POTASSIUM 3.9 MMOL/L (3.6-5.0); SODIUM 136 MMOL/L (135-145); TOTAL PROTEIN 7.1 GM/DL (6.4-8.2)
== END ==
LOC: CARD 10:16
PROVIDERS: ATTEND Thoracic Surgery (Cardiothoracic Vascular Surgery)
DX: Z01.810 Encounter for preprocedural cardiovascular examination (principal); Z01.811 Encounter for preprocedural respiratory examination; Z01.812 Encounter for preprocedural laboratory examination; I65.23 Occlusion and stenosis of bilateral carotid arteries
CPT/HCPCS: 71046; 80053; 93005

== ENCOUNTER → 2018-02-10 | Outpatient (CLI) | payer MEDICARE, MEDICAID ==
[~2018-02-10] MED LIST changes: +HYDR-3870 PO; -HYDR-3874 PO
--- NOTE | 2018-02-10 11:55 | Diagnostic Imaging Report ---
CLINICAL INDICATION: Preop chest x-ray, carotid artery stenosis. EXAM: Chest x-ray PA and lateral views. COMPARISONS: Chest x-ray dated 12/23/2017. FINDINGS: Lungs/pleura: Lungs are clear. There is no pneumothorax. There is no pleural effusion. Mediastinum: Unremarkable. Pulmonary vasculature: Unremarkable. Heart: Again seen cardiomegaly. Stable postop changes to the chest with sternotomy wires and mediastinal clips. Bones/extrathoracic soft tissue: There are severely hypertrophic spurs seen throughout the thoracic spine. IMPRESSION: There is no radiographic evidence of acute cardiopulmonary process. Dictated by: Dictated on workstation # [id number]
== END ==
LOC: CARD 10:54
PROVIDERS: ATTEND Thoracic Surgery (Cardiothoracic Vascular Surgery)
DX: Z01.810 Encounter for preprocedural cardiovascular examination (principal); Z01.811 Encounter for preprocedural respiratory examination; I65.23 Occlusion and stenosis of bilateral carotid arteries
CPT/HCPCS: 71046; 93005

== ENCOUNTER → 2018-02-16 | Outpatient (CLI) | payer MEDICARE, MEDICAID ==
[2018-02-16 11:04] LABS: BILIRUBIN,URINE NEGATIVE (NEGATIVE); CLARITY,URINE CLEAR; COLOR,URINE YELLOW; GLUCOSE, URINE (UA) NEGATIVE (NEGATIVE); KETONES,URINE NEGATIVE (NEGATIVE); LEUKOCYTE ESTERASE ,URINE 3+ (NEGATIVE); NITRITE,URINE NEGATIVE (NEGATIVE); PH,URINE 6.5 (5-9); PROTEIN,URINE 1+ (NEGATIVE); UROBILINOGEN,URINE NORMAL (NORMAL)
[2018-02-16 11:12] LABS: AMORPHOUS SEDIMENT,UR RARE AMOR URATES /LPF; BACTERIA,URINE FEW /HPF; HYALINE CASTS, URINE RARE /LPF; SQUAMOUS EPITHELIAL CELL,UR RARE /HPF
== END ==
LOC: CVS 10:58
PROVIDERS: ATTEND Internal Medicine
DX: R82.90 Unspecified abnormal findings in urine (principal)
CPT/HCPCS: 81000; 87077; 87088

== ENCOUNTER → 2018-03-05 | Outpatient (CLI) | payer MEDICARE, MEDICAID ==
[~2018-03-05] MED LIST changes: +ACET325T49 PO; +CEPH-507 PO; -CITA20TA7 PO; +CITA20TA9 PO; +CLOP75TA28 PO; +ESCI20TA45 PO; +LORA0.5T PO; -METF500T4 PO; +METF500T5 PO; +OXYC-197 PO; +POLY17PO23 PO; +TRAZ-189 PO; -TRAZ-28 PO
== END ==
LOC: CARD 08:57
PROVIDERS: ATTEND Internal Medicine Cardiovascular Disease
DX: R06.02 Shortness of breath (principal); I48.0 Paroxysmal atrial fibrillation; E78.5 Hyperlipidemia, unspecified; I25.10 Atherosclerotic heart disease of native coronary artery without angina pectoris; R53.1 Weakness; I71.4 Abdominal aortic aneurysm, without rupture
CPT/HCPCS: 93306

== ENCOUNTER 2018-04-01 07:46 | Day surgery (SDC) | payer MEDICARE, MEDICAID ==
[2018-04-01] VITALS (9 sets, daily range): BP systolic 144–168; BP diastolic 77–100
[~2018-04-01] VITALS: Ht 157.5 cm; Wt 72.6 kg
[~2018-04-01 07:46] MED LIST changes: -ACET325T49 PO; -CEPH-507 PO; -CLOP75TA28 PO; -ESCI20TA45 PO; -LORA0.5T PO; -OXYC-197 PO; -POLY17PO23 PO; -TRAZ-189 PO; +TRAZ-28 PO
--- OUTSIDE RECORDS SUMMARY | 2018-04-01 07:49 | XMS REPORT | Continuity of Care Document ---
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 Movie Editor Name Role Phone [employer] Unavailable Unavailable Problems Medications Allergies, Adverse Reactions, Alerts Immunizations Results Vital Signs Encounters Location Location Details Encounter Type Encounter Number Reason For Visit Attending Provider ADM Date DC Date Status Source O NIALL CLAYTON 05/08/2017 Active [facility] SPECIMEN [id number] NIALL CLAYTON 06/10/20172016 Active [facility] SPECIMEN [id number] NIALL CLAYTON 07/17/20172016 Active [facility] OUTPATIENT [id number] 09/27/2017 Active [facility] OP SURGERY [id number] NIALL CLAYTON Active [facility] Procedures Plan of Care Social History Assessment and Plan Family History Advance Directives Functional Status
--- OUTSIDE RECORDS SUMMARY | 2018-04-01 07:49 | XMS REPORT | Clinical Summary ---
Author Author [facility] Organization [facility] Address Unknown Phone Unavailable Care Team Providers Care Fiber Designer Name Role Phone Itz Chacon MD PCP Source Comments Some departments are not documenting in the electronic medical record. If you do not see the information that you expected, contact Release of Information in the Health Information Management department at [phone] for further assistance in locating additional records.[facility] Allergies Active Allergy Reactions Severity Noted [...] Overview: Added automatically from request for surgery [id number] Mixed stress and urge urinary incontinence 03/20/2017 Overview: Longstanding hx of JOE (UUI>MAXWELL), OAB, ISD, urinary retention who is s/p PVS (Solyx) by Dr. Andrews on 11/27/16; Macroplastique injection 02/12/17. Trailed Liz Amos without success. 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 Carlisle. Still with JOE (UUI>MAXWELL). Exam with moderate vulvovaginal atrophy, + leak with valsalva. PVR 150 mL UDS (09/19/17) with small capacity, retention, DO throughout filling until end; hypotonic bladder, no stress leak. Cystoscopy was unremarkable. L ast Assessment & Plan: - OR for SPT 10/04/17 - anticholinergic to be added once SPT placed Social History Tobacco Use Types Packs/Day Years Used Date Former Smoker Cigarettes 1 Smokeless Tobacco: Never Used Alcohol Use Drinks/Week oz/Week Comments No 0 Standard 0.0 drinks or equivalent Sex Assigned at Date Recorded Not on file Last Filed Vital Signs Vital Sign Reading Time Taken Blood Pressure 178/94 09/27/2017 10:47 AM CONCRETE BATCHER Pulse 77 09/27/2017 10:47 AM CONCRETE BATCHER Temperature 36.6 C (97.9 F) 09/27/2017 10:47 AM CONCRETE BATCHER Respiratory Rate - - Oxygen Saturation 96% 09/27/2017 10:47 AM CONCRETE BATCHER Inhaled Oxygen - - Concentration Weight 77.2 kg (170 lb 3.2 oz) 09/27/2017 10:47 AM CONCRETE BATCHER Height 157.5 cm (5' 2") 09/27/2017 10:47 AM CONCRETE BATCHER Body Mass Index 31.13 09/27/2017 10:47 AM CONCRETE BATCHER Plan of Treatment Health Maintenance Due Date Last Done Comments PHYSICAL (COMPREHENSIVE) 1942 EXAM PERTUSSIS VACCINE 1948 TETANUS VACCINE 1954 SHINGLES VACCINE 1997 OSTEOPOROSIS SCREENING 2002 PREVNAR/PNEUMOVAX (#1) 2002 INFLUENZA VACCINE 08/18/2018 08/06/2013 Results Not on filefrom Last 3 Months
--- OUTSIDE RECORDS SUMMARY | 2018-04-01 07:51 | XMS REPORT ---
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 Hearing Office Name Role Phone SHANIQUE VEGA Unavailable PROBLEMS Type Condition ICD9-CM Code MID94-KE Code Onset Dates Condition Status SNOMED Code Problem Other chronic pain G89.29 Active 04439118 Problem Type 2 diabetes mellitus without complication, without long-term current use of insulin E11.9 Active 055844506 Problem Low back pain M54.5 Active 316825447 Problem Hypertension I10 Active 23545833 Problem Coronary artery disease I25.10 Active 69312852 Problem Hyperlipidemia E78.5 Active 97375114 Problem Peripheral vascular disease I73.9 Active 985907448 Problem Insomnia G47.00 Active 782091283 Problem Reactive depression F32.9 Active 50022063 Problem Ventral hernia without obstruction or gangrene K43.9 Active 959198228 Problem Anxiety F41.9 Active 57220850 Problem Pharyngeal dysphagia R13.13 Active [id number] ALLERGIES No Information ENCOUNTERS Encounter Location Date Diagnosis [facility] [address]005[address] [address] Jan, [facility] [address] [address] Jan, [facility] [id number] [place] [address] 82782- 9963 Jan, [facility] [id number] [place] [address] 12384- 5111 Jan, [facility] [id number] [place] [address] 40866- 9904 Dec, [facility] [address] [place] [id number] Dec, Peripheral vascular disease I73.9 ; 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 ; Other chronic pain G89.29 ; Anxiety F41.9 ; Reactive depression F32.9 ; Insomnia G47.00 and Type 2 diabetes mellitus without complication, without long-term current use of insulin E11.9 [facility] ADRIENNE SANCHEZ [id number] [place] [address] Nov [facility] [id number] [address] Nov, Anxiety F41.9 [facility] [address] [id number] [address] [address] Nov, [facility] [id number] [place] [id number] Nov, Anxiety F41.9 [facility] [address] [facility] [place] [address] Nov, Status post surgery Z98.890 ; Confused R41.0 ; Anxiety F41.9 and Other chronic pain G89.29 [facility] [address] [id number] [id number] Nov, Other chronic pain G89.29 [facility] [address] [id number] [address] Oct, [facility] [id number] [address] Oct, Other chronic pain G89.29 [facility] [address] [id number] [address] 2546 Oct, Anxiety F41.9 [facility] [address] [id number] [address] Sep, Other chronic pain G89.29 [facility] [id number] [place]ILL[place] [id number] Sep, [facility] [address] [place] [address] Aug, Dysuria R30.0 and Anxiety F41.9 [facility] [address] [address] Aug, [facility] [address] [id number] [address] Aug, Other chronic pain G89.29 [facility] [address]005[address] [address] 2778 Jul, Other chronic pain G89.29 [facility] [address] [id number] [id number] Jun, [facility] [address] [id number] [address] Jun, Other chronic pain G89.29 [facility] [address] [place] [address] 58765- 3684 Jun, [facility] [address]005[address]100[place] [address] May, Other chronic pain G89.29 [facility] [address]00565100[place] [address] 7333 Apr, Other chronic pain G89.29 [facility] [address] [place] [address] Apr, Reactive depression F32.9 and Pharyngeal dysphagia R13.13 [facility] [address] [id number] [address] 3725 Apr, Urinary tract infection without hematuria, site unspecified N39.0 [facility] [address]00565100[place] [address] 5585 March, Other chronic pain G89.29 [facility] [address] [id number] [address] 2510 Feb, Other chronic pain G89.29 [facility] [address] [address] Feb, [facility] [id number] [place] [address] [id number] Feb, [facility] [address] [place] [id number] Feb, Dysuria R30.0 and Ventral hernia without obstruction or gangrene K43.9 [facility] [id number] [place] [address] 94726[address]- 9972 Jan, Other chronic pain G89.29 [facility] [id number] [place] [address] [id number] Dec, Other chronic pain G89.29 [facility] [id number] [place] [address] 70842- 1937 Nov, Other chronic pain G89.29 [facility] [address] [place] [id number] Nov, Lymphadenitis I88.9 [facility] [id number] [place] [address] 86064- 6647 Nov, Other chronic pain G89.29 [facility] [id number] [place] [address] 55560- 2286 Nov, [facility] [id number] [place] [address] [id number] Nov, Other chronic pain G89.29 [facility] [address] [place] [id number] Oct, Low back pain M54.5 ; Hypertension I10 and Type 2 diabetes mellitus without complication, without long-term current use of insulin E11.9 [facility] [address] [place] [address] 50711- 9084 Oct, [facility] [id number] [place] [address] 28543- 8935 Oct, [facility] [id number] [place] [address] 22077- 1864 Oct, [facility] [id number] [place] [address] 51959- 1454 Oct, [facility] [id number] [place] [address] 55926- 2742 Sep, [facility] [address] [facility] [id number] [address]- 2662 Sep, [facility] [address] [facility] [id number] [address]- 4524 Aug, Other chronic pain G89.29 [facility] [address] [facility] [id number] [address]- 4869 Jul, [facility] [address] [facility] [id number] [address]- 4483 Jul, [facility] [address] [facility] [id number] [address]- 8565 Jul, [facility] [address] [id number] [address]- 9950 Jun, [facility] [address] [place] [address] 79629- 1689 Jun, Via [facility] [address] [place] [id number] Jun, Low back pain M54.5 ; Other chronic pain G89.29 and Coronary artery disease I25.10 [facility] [address]005[address]100[place] [address]- 5920 Jun, [facility] [address] [facility] [id number] [address]- 2324 May, [facility] [address] [facility] [id number] [address]- 7785 May, [facility] [address] [facility] [id number] [address]- 9873 May, Other chronic pain G89.29 [facility] [address] [facility] [id number] [address]- 0743 May, [facility] [address] [facility] [id number] [address]- 0946 Apr, [facility] [address] [address]- 0137 17 Apr, 2016 Acute cystitis without hematuria N30.00 [facility] [id number] [place] [address] 78706- 1526 16 Apr, 2016 Acute cystitis without hematuria N30.00 ; Coronary artery disease I25.10 ; Low back pain M54.5 and Other chronic pain G89.29 [facility] [id number] [place] [address] 15671- 4796 13 Apr, 2016 Other chronic pain G89.29 [facility] [id number] [place] [address] 63130- 4488 March, Other chronic pain G89.29 [facility] [id number] [place] [address] 30495- 5033 18 Feb, 2016 [facility] [id number] [place] [address] 12226- 7080 Feb, Arthritis M19.90 [facility] [id number] [place] [address] 05019- 5925 Feb, [facility] [id number] [place] [address] 45023- 1531 30 Jan, 2016 [facility] [address] [address]- 1042 Jan, [facility] [id number] [place] [address] 92648- 9877 Jan, Other chronic pain G89.29 [facility] [address] [address] 254 17 Jan, 2016 Hypertension I10 ; Coronary artery disease I25.10 and Insomnia G47.00 [facility] [address]005[address] [address]- 2547 Jan, [facility] [address] [address]- 2609 Dec, Right hip pain M25.551 [facility] [address] [facility] [id number] [address]- 9656 Dec, [facility] [address] [facility] [id number] [place] [address]- 3086 Dec, [facility] [address] [facility] [id number] [place] [address] 2546 Dec, [facility] [address] [facility] [id number] [address] 2546 Dec, Other chronic pain G89.29 [facility] [address] [facility] [id number] [place] [address] 2546 Dec, [facility] [address] [id number] [address]- 9875 Nov, [facility] [address] [address]- 0553 Nov, Other chronic pain G89.29 [facility] [address] [address] 2541 Nov, Right hip pain M25.551 and Coronary artery disease I25.10 [facility] [address] [address]- 5134 Nov, Other chronic pain G89.29 [facility] [address]100[place] [address]- 5221 Oct, [facility] [address] [address] 2544 Oct, [facility] [address] [id number] [address] 2546 Sep, [facility] [address] [id number] [address] 2546 Sep, [facility] [address] [address]- 2546 Aug, [facility] [address] [id number] [address]- 3077 15 Aug, 2015 Hypertension I10 ; Coronary artery disease I25.10 and Arthritis M19.90 [facility] [id number] [place] [address], [place] [address]- 2532 Jun, [facility] [id number] [place] [address] 12792- 2140 Jun, Essential hypertension, benign 401.1 ; Other chronic pain 338.29 and Chronic airway obstruction, not elsewhere classified [address] [facility] [id number] [place] [address], [place] [address]- 9018 Jun, [facility] [id number] [place] [address], [place] [address]- 3268 Jun, [facility] [id number] [place] [address], [place] [address]- 8670 Jun, [facility] [id number] [place] [address] 21301- 6333 May, [facility] [address] [address]- 5371 May, [facility] [address] [place] [address] 23645- 0563 Apr, [facility] [address] [address]- 1487 Apr, [facility] [address] [address]- 8210 Apr, [facility] [address] [id number] [address]- 5510 March, [facility] [id number] [place] [address], [place] [address]- 5204 March, [facility] [address] [address]- 3675 March, [facility] [id number] [place] [address] 93505- 9136 March, [facility] [address] [facility] [id number] [place] [address]- 1522 March, Sialadenitis 527.2 [facility] [address] [id number] [place] [address]- 8867 Feb, [facility] [address] [facility] [id number] [place] [address]- 8932 Feb, [facility] [address] [facility] [id number] [place] [address]- 3417 Feb, [facility] [address] [facility] [id number] [place] [address]- 2938 Feb, [facility] [address] [facility] [id number] [place] [address]- 5496 Feb, [facility] [address] [facility] [id number] [place] [address]- 5029 Jan, [facility] [address] [facility] [id number] [place] [address]- 0773 Jan, [facility] [address] [facility] [id number] [place] [address]- 7257 Jan, [facility] [address] [facility] [id number] [place] [address]- 2891 Jan, [facility] [address] [facility] [id number] [place] [address]- 8369 Jan, [facility] [address] [facility] [id number] [address]- 3086 Jan, [facility] [address] [facility] [id number] [place] [address]- 4760 Dec, [facility] [address] [facility] [id number] [place] [address]- 1746 Dec, [facility] [address] [facility] [id number] [address]- 4693 Dec, [facility] [place] [facility] [address] [id number] [place] [address]- 8656 Dec, [facility] [place] [facility] [address] [id number] [place] [address]- 4263 Dec, [facility] [place] [facility] [address] [id number] [place] [address]- 4008 Dec, [facility] [place] [facility] [address] [id number] [place] [address]- 4072 Nov, [facility] [place] [facility] [address] [id number] [place] [address]- 8096 Nov, [facility] [place] [facility] [address] [id number] [place] [address]- 2599 Nov, [facility] [place] [facility] [address] [id number] [place] [address]- 0607 Nov, [facility] [place] [facility] [address] [id number] [place] [address]- 7849 Nov, [facility] [place] [facility] [address] [id number] [place] [address]- 7723 Nov, [facility] [place] [facility] [address] [id number] [place] [address]- 7132 Nov, [facility] [place] [facility] [address] [id number] [address]- 5612 Nov, [facility] [place] [facility] [address] [id number] [address]- 4845 Nov, [facility] [place] [facility] [address] [id number] [place] [address]- 0404 Nov, [facility] [place] [facility] [address] [id number] [place] [address]- 9289 Nov, [facility] [place] [facility] [address] [id number] [address]- 9877 Nov, [facility] [place] [facility] [address] [id number] [place] [address]- 0254 Nov, [facility] [place] [facility] [address] [id number] [place] [address]- 6651 Nov, [facility] [place] [facility] [address] [id number] [place] [address]- 9813 Oct, [facility] [place] [facility] [address] [id number] [place] [address]- 1014 Oct, [facility] [place] [facility] [address] [id number] [place] [address]- 5189 Oct, [facility] [place] [facility] [address] [id number] [place] [address]- 5907 Oct, [facility] [place] [facility] [address] [id number] [place] [address]- 1955 Oct, [facility] [place] [facility] [address] [id number] [place] [address]- 7726 Oct, [facility] [place] [facility] [address] [id number] [place] [address]- 2027 Oct, [facility] [place] [facility] [address] [id number] [place] [address]- 1167 Oct, [facility] [place] [facility] [address] [id number] [place] [address]- 6845 Oct, [facility] [place] [facility] [address] [id number] [place] [address]- 7112 Sep, [facility] [place] [facility] [address] [id number] [place] [address]- 1635 Sep, [facility] [place] [facility] [address] [id number] [place] [address]- 4125 Sep, [facility] [place] [facility] [address] [id number] [place] [address]- 1874 Sep, [facility] [place] [facility] [address] [facility] [id number] [place] [address]- 6594 Sep, [facility] [place] [facility] [address] [id number] [place] [address]- 7661 Sep, [facility] [place] [facility] [address] [id number] [place] [address]- 3923 Sep, [facility] [place] [facility] [address] [id number] [place] [address]- 0033 Sep, [facility] [place] [facility] [address] [id number] [place] [address]- 0571 Sep, [facility] [place] [facility] [address] [id number] [place] [address]- 2083 Sep, [facility] [place] [facility] [address] [id number] [place] [address]- 6832 Sep, [facility] [place] [facility] [address] [id number] [place] [address]- 1298 Sep, [facility] [place] [facility] [address] [id number] [place] [address]- 1502 Aug, [facility] [place] [facility] [address] [id number] [place] [address]- 1210 Aug, [facility] [place] [facility] [address] [id number] [place] [address]- 7947 Aug, [facility] [place] [facility] [address] [id number] [place] [address]- 3402 Aug, [facility] [place] [facility] [address] [id number] [place] [address]- 7880 Aug, [facility] [place] [facility] [address] [id number] [place] [address]- 2000 Aug, [facility] [place] [facility] [address] [id number] [place] 5968 Aug, [facility] [place] [facility] [address] [id number] [place] [address]- 1236 Aug, [facility] [place] [facility] [address] [id number] [place] [address]- 1195 30 Jul, 2013 [facility] [place] [facility] [address] [id number] [place] [address]- 2828 30 Jul, 2013 [facility] [place] [facility] [address] [id number] [place] [address]- 8496 30 Jul, 2013 [facility] [place] [facility] [address] [id number] [place] [address]- 8814 30 Jul, 2013 [facility] [place] [facility] [address] [id number] [place] [address]- 5608 25 Jul, 2013 [facility] [place] [facility] [address] [id number] [place] [address]- 3650 25 Jul, 2013 [facility] [place] [facility] [address] [id number] [place] [address]- 7478 15 Jul, 2014 [facility] [place] [facility] [address] [id number] [place] [address]- 4834 15 Jul, 2014 [facility] [place] [facility] [address] [id number] [place] [address]- 9592 Jul, [facility] [place] [facility] [address] [id number] [place] [address]- 8108 Jul, [facility] [place] [facility] [address] [id number] [place] [address]- 2171 Jun, [facility] [place] [facility] [address] [id number] [place] [address]- 1832 Jun, [facility] [place] [facility] [address] [id number] [place] [address]- 1660 Jun, [facility] [place] [facility] [address] [id number] [place] [address]- 9371 Jun, [facility] [place] [facility] [address] [id number] [place] [address]- 8767 Jun, [facility] [place] [facility] [address] [id number] [place] [address] Jun, [facility] [place] [facility] [address] [id number] [place] [address] Jun, [facility] [place] [facility] [address] [id number] [place] [address] Jun, [facility] [place] [facility] [address] [id number] [place] [address] Jun, [facility] [place] [facility] [address] [id number] [place] [address] Jun, [facility] [place] [facility] [address] [id number] [place] [address] Jun, [facility] [place] [facility] [address] [id number] [place] [address] Jun, [facility] [place] [facility] [address] [id number] [place] [address] Jun, [facility] [place] [facility] [address] [id number] [place] [address] Jun, [facility] [place] [facility] [address] [id number] [place] [address] Jun, [facility] [place] [facility] [address] [id number] [place] [address] Jun, [facility] [place] [facility] [address] [id number] [place] [address] Jun, [facility] [place] [facility] [address] [id number] [place] [address] Jun, [facility] [place] [facility] [address] [id number] [place] [address]- [address] Jun, [facility] [place] [facility] [address] [id number] [place] [address] Jun, [facility] [place] [facility] [address] [id number] [place] [address] Jun, [facility] [place] [facility] [address] [id number] [place] [address] Jun, [facility] [place] [facility] [address] [id number] [place] [address] May, [facility] [place] [facility] [address] [id number] [place] [address] May, [facility] [place] [facility] [address] [id number] [place] [address]- [address] May, [facility] [place] [facility] [address] [id number] [place] [address]- [address] May, [facility] [place] [facility] [address] [id number] [place] [address]- [address] May, [facility] [place] [facility] [address] [id number] [place] [address]- [address] May, [facility] [place] [facility] [address] [id number] [place] [address]- [address] May, [facility] [place] [facility] [address] [id number] [place] [address]- [address] May, [facility] [place] [facility] [address] [id number] [place] [address] May, [facility] [place] [facility] [address] [id number] [place] [address]- [address] May, [facility] [place] [facility] [address] [id number] [place] [address] May, [facility] [place] [facility] [address] [id number] [place] [address]- [address]69 May, [facility] [place] [facility] [address] [id number] [place] [address]- [address] May, [facility] [place] [facility] [address] [id number] [place] [address]- [address] Apr, [facility] [place] [facility] [address] [id number] [place] [address]- [address] Apr, [facility] [place] [facility] [address] [id number] [place] [address] Apr, [facility] [place] [facility] [address] [id number] [place] [address]- 16[address] Apr, [facility] [place] [facility] [address] [id number] [place] [address] Apr, [facility] [place] [facility] [address] [id number] [place] [address]- [address] Apr, [facility] [place] [facility] [address] [id number] [place] [address]- [address] Apr, [facility] [place] [facility] [address] [id number] [place] [address] Apr, [facility] [place] [facility] [address] [id number] [place] [address]- [address] Apr, [facility] [place] [facility] [address] [id number] [place] [address]- [address] March, [facility] [place] [facility] [address] [id number] [place] [address] March, [facility] [place] [facility] [address] [id number] [place] [address]- [address] March, [facility] [place] [facility] [address] [id number] [place] [address]- [address] March, [facility] [place] [facility] [address] [id number] [place] [address]- [address] March, [facility] [place] [facility] [address] [id number] [place] [address] March, [facility] [place] [facility] [address] [id number] [place] [address] March, [facility] [place] [facility] [address] [id number] [place] [address] 9144 March, [facility] [place] [facility] [address] [id number] [place] [address] 7676 March, [facility] [place] [facility] [address] [id number] [place] [address] 9992 March, [facility] [address] [id number] [place] [address] 6100 March, [facility] [address] [id number] [place] [address] 2635 March, [facility] [address] [id number] [place] [address] 4492 March, [facility] [address] [id number] [place] [address] 3748 March, [facility] [address] [id number] [place] [address] 7952 March, [facility] [address] [id number] [place] [address] 9849 March, [facility] [address] [id number] [place] [address] 9174 March, [facility] [address] [id number] [place] [address] 0449 March, [facility] [address] [id number] [place] [address]- 7322 March, [facility] [address] [id number] [place] [address]- 0096 March, [facility] [address] [id number] [place] [address]- 8330 Feb, [facility] [address] [id number] [place] [address]- 0425 Feb, [facility] [place] [facility] [address] [id number] [place] [address]- 9050 Feb, [facility] [place] [facility] [address] [id number] [place] [address]- 3829 Feb, [facility] [address] [id number] [place] [address]- 9395 Feb, [facility] [place] [facility] [address] [id number] [place] [address]- 8111 Feb, [facility] [place] [facility] [address] [id number] [place] [address]- 6487 Feb, [facility] [place] [facility] [address] [id number] [place] [address]- 1615 Feb, [facility] [place] [facility] [address] [id number] [place] [address]- 6278 Jan, [facility] [place] [facility] [address] [id number] [place] [address]- 0172 Jan, [facility] [place] [facility] [address] [id number] [place] [address]- 5383 Jan, [facility] [place] [facility] [address] [id number] [place] [address]- 8057 Jan, [facility] [place] [facility] [address] [id number] [place] [address]- 3073 Jan, [facility] [place] [facility] [address] [id number] [place] [address]- 8780 Jan, [facility] [place] [facility] [address] [id number] [place] [address]- 9094 Jan, [facility] [place] [facility] [address] [id number] [place] [address]- 9855 Jan, [facility] [place] [facility] [address] [id number] [place] [address]- 9840 Jan, [facility] [place] [facility] [address] [id number] [place] [address]- 7435 Jan, [facility] [place] [facility] [address] [id number] [place] [address]- 4246 Dec, [facility] [place] [facility] [address] [id number] [place] [address]- 7469 Dec, [facility] [place] [facility] [address] [id number] [place] [address]- 0530 Dec, [facility] [place] [facility] [address] [id number] [place] [address]- 8596 Dec, [facility] [place] [facility] [address] [id number] [place] [address]- 9916 Dec, [facility] [place] [facility] [address] [id number] [place] [address]- 8606 Dec, [facility] [place] [facility] [address] [id number] [place] [address]- 9807 Dec, [facility] [place] [facility] [address] [id number] [place] [address]- 9943 Dec, [facility] [place] [facility] [address] [id number] [place] [address]- 1715 Nov, [facility] [place] [facility] [address] [id number] [place] [address]- 0863 Nov, [facility] [place] [facility] [address] [id number] [place] [address]- 9691 Nov, [facility] [place] [facility] [address] [id number] [place] [address]- 6737 Nov, [facility] [place] [facility] [address] [id number] [place] [address]- 2866 Nov, [facility] [place] [facility] [address] [id number] [place] [address]- 5912 Nov, [facility] [place] [facility] [address] [id number] [place] [address]- 9438 Nov, [facility] [place] [facility] [address] [id number] [place] [address]- 6660 Nov, [facility] [place] [facility] [address] [id number] [place] [address]- 8835 Nov, [facility] [place] [facility] [address] [id number] [place] [address]- 9234 Nov, [facility] [address] [id number] [place] [address]- 2849 Nov, [facility] [place] [facility] [address] [id number] [place] [address]- 5607 Nov, [facility] [place] [facility] [address] [id number] [place] [address]- 5768 Nov, [facility] [place] [facility] [address] [id number] [place] [address]- 7289 Oct, [facility] [address] [id number] [place] [address] Oct, [facility] [place] [facility] [address] [id number] [place] [address]- 6630 Oct, [facility] [address] [id number] [place] [address]- 2970 Oct, [facility] [address] [id number] [place] [address]- 3907 Oct, [facility] [place] [facility] [address] [id number] [place] [address]- 2717 Oct, [facility] [place] [facility] [address] [id number] [place] [address]- 4692 Oct, [facility] [place] [facility] [address] [id number] [place] [address]- 7083 Oct, [facility] [place] [facility] [address] [id number] [address]- 9174 Oct, [facility] [place] [facility] [address] [id number] [place] [address]- 1520 Oct, [facility] [place] [facility] [address] [id number] [place] [address]- 4336 Oct, [facility] [place] [facility] [address] [id number] [place] [address]- 8606 Oct, [facility] [place] [facility] [address] [id number] [place] [address]- 4697 Oct, [facility] [place] [facility] [address] [id number] [place] [address]- 6670 Oct, [facility] [place] [facility] [address] [id number] [place] [address]- 2222 Sep, [facility] [place] [facility] [address] [facility] [id number] [place] [address]- 4556 Sep, [facility] [place] [facility] [address] [id number] [place] [address]- 7025 Sep, [facility] [place] [facility] [address] [id number] [place] [address]- 5366 Sep, [facility] [place] [facility] [address] [id number] [place] [address]- 4416 Sep, [facility] [place] [facility] [address] [facility] [id number] [address]- 9808 Sep, [facility] [place] [facility] [address] [facility] [id number] [place] [address]- 7316 Sep, [facility] [place] [facility] [address] [facility] [id number] [place] [address]- 3028 Sep, [facility] [place] [facility] [address] [facility] [id number] [address]- 2237 Sep, [facility] [place] [facility] [address] [facility] [id number] [place] [address]- 6663 Sep, [facility] [place] [facility] [address] [id number] [place] [address]- 8507 Aug, [facility] [place] [facility] [address] [id number] [place] [address]- 7786 Aug, [facility] [place] [facility] [address] [facility] [id number] [place] [address]- 4594 Aug, [facility] [place] [facility] [address] [facility] [id number] [place] [address]- 8714 Aug, [facility] [place] [facility] [address] [id number] [place] [address]- 8422 23 Aug, 2012 [facility] [place] [facility] [address] [id number] [place] [address]- 7648 23 Aug, 2012 [facility] [place] [facility] [address] [id number] [place] [address]- 2523 23 Aug, 2012 [facility] [place] [facility] [address] [id number] [place] [address]- 3202 23 Aug, 2012 [facility] [place] [facility] [address] [id number] [place] [address]- 8148 22 Aug, 2012 [facility] [place] [facility] [address] [id number] [place] [address]- 6480 22 Aug, 2012 [facility] [place] [facility] [address] [id number] [place] [address]- 0479 18 Aug, 2012 [facility] [place] [facility] [address] [id number] [place] [address]- 7015 18 Aug, 2012 [facility] [place] [facility] [address] [id number] [place] [address]- 9891 18 Aug, 2012 [facility] [place] [facility] [address] [id number] [place] [address]- 5198 18 Aug, 2012 [facility] [place] [facility] [address] [id number] [place] [address]- 0980 17 Aug, 2012 [facility] [place] [facility] [address] [id number] [place] [address]- 8302 14 Aug, 2012 [facility] [place] [facility] [address] [id number] [place] [address]- 1489 14 Aug, 2013 [facility] [place] [facility] [address] [id number] [place] [address]- 0914 Aug, [facility] [place] [facility] [address] [id number] [place] [address]- 7619 20 Jul, 2012 [facility] [place] [facility] [address] [id number] [place] [address]- 6229 19 Jul, 2013 [facility] [place] [facility] [address] [id number] [place] [address]- 8108 18 Jul, 2013 [facility] [place] [facility] [address] [id number] [place] [address]- 1511 Jul, [facility] [place] [facility] [address] [id number] [place] [address]- 6936 Jul, [facility] [place] [facility] [address] [id number] [place] [address]- 0418 Jun, [facility] [place] [facility] [address] [id number] [place] [address]- 1806 Jun, [facility] [place] [facility] [address] [id number] [place] [address]- 7415 Jun, [facility] [place] [facility] [address] [id number] [place] [address]- 9849 Jun, [facility] [place] [facility] [address] [id number] [place] [address]- 6678 Jun, [facility] [place] [facility] [address] [id number] [place] [address]- 3094 Jun, [facility] [place] [facility] [address] [id number] [place] [address]- 2534 Jun, [facility] [place] [facility] [address] [id number] [place] [address]- 6417 Jun, [facility] [place] [facility] [address] [id number] [place] [address]- 1929 Jun, [facility] [place] [facility] [address] [id number] [place] [address]- 7256 Jun, [facility] [place] [facility] [address] [id number] [place] [address]- 9758 May, [facility] [place] [facility] [address] [id number] [place] [address]- 1889 May, [facility] [place] [facility] [address] [id number] [place] [address]- 0207 May, [facility] [address] [id number] [place] [address]- 0157 May, [facility] [place] [facility] [address] [id number] [place] [address]- 6625 May, [facility] [address] [id number] [place] [address]- 2286 May, [facility] [place] [facility] [address] [id number] [place] [address]- 4905 May, [facility] [address] [id number] [place] [address]- 8410 May, [facility] [place] [facility] [address] [id number] [place] [address]- 8702 May, [facility] [address] [id number] [place] [address]- 5675 Apr, [facility] [place] [facility] [address] [id number] [place] [address]- 5218 Apr, [facility] [place] [facility] [address] [id number] [place] [address]- 6054 Apr, [facility] [place] [facility] [address] [id number] [place] [address]- 3359 Apr, [facility] [place] [facility] [address] [id number] [place] [address]- 3762 Apr, [facility] [place] [facility] [address] [id number] [place] [address]- 8358 Apr, [facility] [place] [facility] [address] [id number] [place] [address]- 5308 Apr, [facility] [place] [facility] [address] [id number] [place] [address]- 8250 March, [facility] [place] [facility] [address] [id number] [place] [address]- 5876 Feb, [facility] [place] [facility] [address] [id number] [place] [address]- 3150 Feb, [facility] [address] [id number] [place] [address]- 6357 Feb, [facility] [place] [facility] [address] [id number] [place] [address]- 2249 28 Jan, 2013 [facility] [place] [facility] [address] [id number] [place] [address]- 4073 21 Jan, 2013 [facility] [address] [id number] [place] [address]- 9984 19 Jan, 2013 [facility] [place] [facility] [address] [id number] [place] [address]- 7870 14 Jan, 2013 [facility] [address] [id number] [place] [address]- 5428 Jan, [facility] [place] [facility] [address] [id number] [place] [address]- 6609 08 Jan, 2013 [facility] [place] [facility] [address] [id number] [place] [address]- 4199 07 Jan, 2013 [facility] [place] [facility] [address] [id number] [place] [address]- 0404 04 Jan, 2013 [facility] [place] [facility] [address] [id number] [place] [address]- 7936 28 Dec, 2012 [facility] [place] [facility] [address] [id number] [place] [address]- 4372 25 Dec, 2012 [facility] [place] [facility] [address] [id number] [place] [address]- 5104 13 Dec, 2012 [facility] [place] [facility] [address] [id number] [place] [address]- 7710 11 Dec, 2012 [facility] [place] [facility] [address] [id number] [place] [address]- 9220 07 Dec, 2012 [facility] [place] [facility] [address] [id number] [place] [address]- 6027 06 Dec, 2012 [facility] [address] [id number] [place] [address]- 9243 05 Dec, 2012 [facility] [address] [id number] [place] [address]- 3586 Nov, [facility] [address] [id number] [place] [address]- 4406 24 Nov, 2012 [facility] [address] [id number] [place] [address]- 4515 18 Nov, 2012 [facility] [address] [id number] [place] [address]- 9822 15 Nov, 2012 [facility] [address] [id number] [place] [address]- 0963 Nov, [facility] [address] [facility] [id number] [place] [address]- 1335 Nov, [facility] [address] [id number] [place] [address]- 5934 Nov, [facility] [address] [id number] [place] [address]- 0145 Oct, [facility] [address] [facility] [id number] [place] [address]- 9168 Oct, [facility] [address] [id number] [place] [address]- 5065 Oct, [facility] [address] [id number] [place] [address] 2543 28 Oct, 2012 [facility] [address] [id number] [place] [address]- 1736 17 Oct, 2012 [facility] [address] [id number] [place] [address]- 4136 17 Oct, 2012 [facility] [address] [facility] [id number] [place] [address]- 9936 07 Oct, 2012 [facility] [place] [facility] [address] [id number] [place] [address]- 8036 Oct, [facility] [place] [facility] [address] [id number] [place] [address]- 3473 Oct, [facility] [place] [facility] [address] [id number] [place]154 Oct, [facility] [place] [facility] [address] [id number] [place] [address]- 7219 Oct, [facility] [place] [facility] [address] [id number] [place] [address]- 2278 Oct, [facility] [place] [facility] [address] [id number] [place] [address]- 7669 Sep, [facility] [place] [facility] [address] [id number] [place] [address]- 0641 Sep, [facility] [place] [facility] [address] [id number] [place] [address]- 4821 Sep, [facility] [place] [facility] [address] [id number] [place] [address]- 9683 Sep, [facility] [place] [facility] [address] [id number] [place] [address]- 4556 Sep, [facility] [place] [facility] [address] [id number] [place] [address]- 0761 Sep, [facility] [place] [facility] [address] [id number] [place] [address]- 1345 Sep, [facility] [place] [facility] [address] [id number] [place] [address]- 7055 Sep, [facility] [place] [facility] [address] [id number] [place] [address]- 3466 Sep, [facility] [place] [facility] [address] [id number] [place] [address]- 0728 Sep, [facility] [place] [facility] [address] [id number] [place] [address]- 8826 Sep, [facility] [place] [facility] [address] [id number] [place] [address]- 9169 Aug, [facility] [place] [facility] [address] [id number] [place] [address]- 4176 Aug, [facility] [place] [facility] [address] [id number] [place] [address]- 1663 Aug, [facility] [place] [facility] [address] [id number] [place] [address]- 7085 Aug, [facility] [place] [facility] [address] [id number] [place] [address]- 0376 Aug, [facility] [place] [facility] [address] [id number] [place] [address]387 Aug, [facility] [place] [facility] [address] [id number] [place] [address]- 6447 Aug, [facility] [place] [facility] [address] [id number] [place] [address]- 1380 Aug, [facility] [place] [facility] [address] [id number] [place] [address]- 5698 Aug, [facility] [place] [facility] [address] [id number] [place] [address] Aug, [facility] [place] [facility] [address] [id number] [address] Jul, [facility] [place] [facility] [address] [id number] [address] 20 Jul, 2012 [facility] [place] [facility] [address] [id number] [place] [address] 10 Jul, 2012 [facility] [place] [facility] [address] [facility] [id number] [address] 06 Jul, 2012 [facility] [place] [facility] [address] [id number] [place] [address] Jun, [facility] [place] [facility] [address] [id number] [place] [address] Jun, [facility] [place] [facility] [address] [id number] [place] [address] Jun, [facility] [place] [facility] [address] [id number] [place] [address] Jun, [facility] [place] [facility] [address] [id number] [place] [address] Jun, [facility] [place] [facility] [address] [id number] [place] [address] Jun, [facility] [place] [facility] [address] [id number] [place] [address]689 Jun, [facility] [place] [facility] [address] [id number] [place] [address] May, [facility] [place] [facility] [address] [id number] [place] [address] May, [facility] [place] [facility] [address] [id number] [place] [address] May, [facility] [place] [facility] [address] [id number] [place] [address] May, [facility] [place] [facility] [address] [id number] [place] [address] May, [facility] [place] [facility] [address] [id number] [place] [address] 47[address] Apr, [facility] [place] [facility] [address] [id number] [place] [address] Apr, [facility] [place] [facility] [address] [id number] [place] [address] Apr, [facility] [place] [facility] [address] [id number] [place] [address] Apr, [facility] [place] [facility] [address] [id number] [place] [address] Apr, [facility] [place] [facility] [address] [id number] [place] [address] March, [facility] [address] [id number] [place] [address] March, [facility] [address] [id number] [place] [address] March, [facility] [address] [id number] [place] [address] March, [facility] [address] [id number] [place] [address] March, [facility] [address] [id number] [place] [address] March, [facility] [address] [id number] [place] [address] March, [facility] [address] [id number] [place] [address] March, [facility] [address] [id number] [place] [address] 4036 March, [facility] [address] [id number] [place] [address] March, [facility] [address] [id number] [place] [address] Feb, [facility] [place] [facility] [address] [id number] [place] [address]709 Feb, [facility] [place] [facility] [address] [id number] [place] [address] 9669 Feb, [facility] [place] [facility] [address] [id number] [place] [address] Feb, [facility] [place] [facility] [address] [id number] [place] [address] Feb, [facility] [place] [facility] [address] [id number] [place] [address] 17 Feb, 2012 [facility] [address] [id number] [place] [address] Feb, [facility] [place] [facility] [address] [id number] [place] [address] Feb, [facility] [place] [facility] [address] [facility] [id number] [place] [address] Feb, [facility] [place] [facility] [address] [id number] [place] [address]- [address] 08 Jan, 2012 [facility] [place] [facility] [address] [id number] [place] [address] Jan, [facility] [place] [facility] [address] [id number] [place] [address] Jan, [facility] [address] [id number] [address] Jan, [facility] [place] [facility] [address] [id number] [place] [address] 49[address] Dec, [facility] [address] [facility] [id number] [place] [address] Dec, [facility] [place] [facility] [address] [facility] [id number] [place] [address]10 Nov, [facility] [address] [id number] [place] [address]- 6097 Nov, [facility] [place] [facility] [address] [id number] [place] [address] Nov, [facility] [place] [facility] [address] [id number] [place] [address]37 16 Nov, 2011 [facility] [place] [facility] [address] [facility] [id number] [place] [address]28 Nov, [facility] [place] [facility] [address] [id number] [address] Oct, [facility] [place] [facility] [address] [id number] [address] Oct, [facility] [id number] [address] Oct, [facility] [id number] [address] Oct, [facility] [id number] [address] Oct, [facility] [id number] [address] Oct, [facility] [id number] [address] Oct, [facility] [id number] [address]- [address] Oct, [facility] [id number] [address] Sep, IMMUNIZATIONS No Known Immunizations SOCIAL HISTORY Never Assessed REASON FOR VISIT Refill request PLAN OF CARE VITAL SIGNS MEDICATIONS Medication Instructions Dosage Frequency Start Date End Date Duration Status MS Contin 30 MG Orally every 12 hrs (PT IS IN [facility]) 1 tablet May, 28 days Active RESULTS No Results PROCEDURES No Known procedures INSTRUCTIONS MEDICATIONS ADMINISTERED No Known Medications
--- OUTSIDE RECORDS SUMMARY | 2018-04-01 07:57 | XMS REPORT ---
Author Author SHANIQUE VEGA [facility] Address [address] [place] [address] Care Team Providers Care Guest Services Officer Name Role Phone SHANIQUE VEGA Unavailable PROBLEMS Type Condition ICD9-CM Code PPZ74-KP Code Onset Dates Condition Status SNOMED Code Problem Other chronic pain G89.29 Active 19720969 Problem Type 2 diabetes mellitus without complication, without long-term current use of insulin E11.9 Active 475908666 Problem Low back pain M54.5 Active 017132815 Problem Hypertension I10 Active 00694044 Problem Coronary artery disease I25.10 Active 55414484 Problem Hyperlipidemia E78.5 Active 44235236 Problem Peripheral vascular disease I73.9 Active 902046272 Problem Insomnia G47.00 Active 213892286 Problem Reactive depression F32.9 Active 48544157 Problem Ventral hernia without obstruction or gangrene K43.9 Active 805217759 Problem Anxiety F41.9 Active 03551534 Problem Pharyngeal dysphagia R13.13 Active [id number] ALLERGIES No Information ENCOUNTERS Encounter Location Date Diagnosis [place] [id number] [place] [address] 16513- 5597 Jan, [facility] [id number] [place] [address] 48360- 4499 Jan, [facility] [id number] [place] [address] 11579- 3549 Jan, [facility] [id number] [place] [address] 71732- 9597 Dec, [facility] [address] [facility] [place] [id number] Dec, Peripheral vascular disease I73.9 ; 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 ; Other chronic pain G89.29 ; Anxiety F41.9 ; Reactive depression F32.9 ; Insomnia G47.00 and Type 2 diabetes mellitus without complication, without long-term current use of insulin E11.9 [facility] ADRIENNE SANCHEZ [id number] [place] [address] Nov [facility] [id number] [id number] Nov, Anxiety F41.9 [facility] [address] [address] Nov, [facility] [id number] [place] [address] [id number] Nov, Anxiety F41.9 [facility] [address] [place] [id number] Nov, Status post surgery Z98.890 ; Confused R41.0 ; Anxiety F41.9 and Other chronic pain G89.29 [facility] [id number] [id number] Nov, Other chronic pain G89.29 [facility] [address] [address] 9789 Oct, [facility] [id number] [place] [address] [id number] Oct, Other chronic pain G89.29 [facility] [address] [id number] [address] Oct, Anxiety F41.9 [facility] [id number] [place] [id number] Sep, Other chronic pain G89.29 [facility] [id number] [id number] Sep, [facility] [address] [place] [id number] Aug, Dysuria R30.0 and Anxiety F41.9 [facility] [address] [id number] [address] 0618 Aug, [facility] [address] [id number] [id number] Aug, Other chronic pain G89.29 [facility] [address] [id number] [address] 0524 Jul, Other chronic pain G89.29 [facility] [id number] [id number] Jun, [facility] [address] [id number] [id number] Jun, Other chronic pain G89.29 [facility] [address]00565[address] [address] 4[address] Jun, [facility] [address]- 5476 May, Other chronic pain G89.29 [facility] [address]005[address], [place] [address] 9090 Apr, Other chronic pain G89.29 [facility] [address] [place] [id number] Apr, Reactive depression F32.9 and Pharyngeal dysphagia R13.13 [facility] [address]005[address], [place] [address] 9629 Apr, Urinary tract infection without hematuria, site unspecified N39.0 [facility] [address] [id number], [place] [address] 9958 March, Other chronic pain G89.29 [facility] [address] [id number] [address]- 2454 Feb, Other chronic pain G89.29 [facility] [address] [id number] 7876 Feb, [facility] [id number], [place] [address] Feb, [facility] [address] [place] [id number] Feb, Dysuria R30.0 and Ventral hernia without obstruction or gangrene K43.9 [facility] [id number] [place] [address] 76997- 4351 Jan, Other chronic pain G89.29 [facility] [id number] [place] [address] [id number] Dec, Other chronic pain G89.29 [facility] [id number] [place] [address] 09670- 7839 Nov, Other chronic pain G89.29 [facility] [email or web address] [facility] [address] [place] [id number] Nov, Lymphadenitis I88.9 [facility] [address] [address]- 6388 Nov, Other chronic pain G89.29 [facility] [id number] [place] [address] 01040- 4066 Nov, [facility] [id number] [place] [address] [id number] Nov, Other chronic pain G89.29 [facility] [address] [place] [id number] Oct, Low back pain M54.5 ; Hypertension I10 and Type 2 diabetes mellitus without complication, without long-term current use of insulin E11.9 [facility] [id number] [place] [address] 80039- 6205 Oct, [facility] [id number] [place] [address] 30059- 7272 Oct, [facility] [id number] [place] [address] 14650- 5992 Oct, [facility] [address] 05744- 4501 Oct, [facility] [id number] [place] [address] 38369- 3144 Sep, [facility] [address] 94030- 9525 Sep, [facility] [address] [facility] [id number], [place] [address]- 9497 Aug, Other chronic pain G89.29 [facility] [address] [facility] [id number], [place] [address]- 5716 Jul, [facility] [address] [facility] [id number], [place] [address]- 2873 Jul, [facility] [address] [facility] [id number], [place] [address]- 1088 Jul, [facility] [address] [facility] [id number] [place] [address] 85750- 3486 Jun, [facility] [address] [place] [address] 13756- 5288 Jun, [facility] [address] [place] [id number] Jun, Low back pain M54.5 ; Other chronic pain G89.29 and Coronary artery disease I25.10 [facility] [address], [place] [address]- 1716 Jun, [facility] [address]005[address], [place] [address]- 4615 May, [facility] [address]00565[address], [place] [address]- 7277 May, [facility] [address]005[address], [place] [address]- 5897 May, Other chronic pain G89.29 [facility] [address] [facility] [id number], [place] [address]- 8487 May, [facility] [address] [id number], [place] [address]- 0929 Apr, [facility] [address] [id number], [place] [address]- 5714 Apr, Acute cystitis without hematuria N30.00 [facility] [address], [place] [address]- 6816 16 Apr, 2016 Acute cystitis without hematuria N30.00 ; Coronary artery disease I25.10 ; Low back pain M54.5 and Other chronic pain G89.29 [facility] [id number] [place] [address] 64625- 1600 13 Apr, 2016 Other chronic pain G89.29 [facility] [id number] [place] [address] 68809- 8379 March, Other chronic pain G89.29 [facility] [id number] [place] [address] 84718- 9096 18 Feb, 2016 [facility] [id number] [place] [address] 38487- 9878 Feb, Arthritis M19.90 [facility] [id number] [place] [address] 71831- 5919 Feb, [facility] [id number] [place] [address] 10315- 4133 Jan, [facility] [id number] [place] [address] 65126- 0892 Jan, [facility] [id number] [place] [address] 14321- 3562 Jan, Other chronic pain G89.29 [facility] [id number] [place] [address] 57698 2545 Jan, Hypertension I10 ; Coronary artery disease I25.10 and Insomnia G47.00 [facility] [id number] [place] [address] 82281- 4332 Jan, [facility] [id number] [place] [address] 58492- 2931 Dec, Right hip pain M25.551 [facility] [id number] [place] [address] 14110- 0686 Dec, [facility] [address] [facility] [id number], [place] [address]- 5729 Dec, [facility] [address], [place] [address]- 6856 Dec, [facility] [address], [place] [address] 2549 Dec, Other chronic pain G89.29 [facility] [address], [place] [address]- 4712 Dec, [facility] [address], [place] [address]- 2476 Nov, [facility] [address] [place] [address] 47846- 9019 Nov, Other chronic pain G89.29 [facility] [address], [place] [address]- 6952 Nov, Right hip pain M25.551 and Coronary artery disease I25.10 [facility] [address], [place] [address]- 7199 Nov, Other chronic pain G89.29 [facility] [address], [place] [address]- 1938 Oct, [facility] [address], [place] [address]- 1263 Oct, [facility] [address], [place] [address]- 4689 Sep, [facility] [address], [place] [address]- 6314 Sep, [facility] [address], [place] [address]- 0870 Aug, [facility] [address], [place] [address]- 6304 Aug, Hypertension I10 ; Coronary artery disease I25.10 and Arthritis M19.90 [facility] [address] [facility] [id number] [place] [address]- 4682 Jun, [facility] [id number] [place] [address]- 3363 Jun, Essential hypertension, benign 401.1 ; Other chronic pain 338.29 and Chronic airway obstruction, not elsewhere classified 496 [facility] [address] [facility] [id number] [place] [address]- 6593 Jun, [facility] [address] [id number] [place] [address]- 1719 Jun, [facility] [address] [facility] [id number] [place] [address]- 9963 Jun, [facility] [id number] [place] [address]- 3243 May, [facility] [address] [id number] [place] [address]- 9835 May, [facility] [address] [id number] [place] [address]- 3578 Apr, [facility] [address] [id number] [place] [address]- 7321 Apr, [facility] [address] [id number] [place] [address]- 1357 Apr, [facility] [id number] [place] [address]- 2959 March, [facility] [address] [facility] [id number] [place] [address]- 3088 March, [facility] [address] [facility] [id number] [place] [address]- 9052 March, [facility] [address] [facility] [id number] [place] [address]- 6614 March, [facility] [address], [place] [address]- 3324 March, Sialadenitis 527.2 [facility] [address] [id number] [place] [address]- 7142 Feb, [facility] [address] [id number] [place] [address]- 9597 Feb, [facility] [address] [facility] [id number] [place] [address]- 3176 Feb, [facility] [address] [facility] [id number] [place] [address]- 2086 Feb, [facility] [address] [id number] [place] [address]- 2664 Feb, [facility] [address] [facility] [id number] [place] [address]- 7133 Jan, [facility] [address] [facility] [id number] [place] [address]- 8863 Jan, [facility] [address] [facility] [id number] [place] [address]- 3178 Jan, [facility] [address] [facility] [id number] [place] [address]- 5827 Jan, [facility] [address] [facility] [id number] [place] [address]- 9306 Jan, [facility] [address] [facility] [id number] [place] [address]- 4377 Jan, [facility] [address] [facility] [id number], [place] [address]- 0468 Dec, [facility] [address] [id number] [place] [address]- 4647 Dec, [facility] [address] [facility] [id number], [place] [address]- 1438 Dec, [facility] [address] [facility] [id number], [place] [address]- 7603 Dec, [facility] [place] [facility] [address] [id number] [place] [address]- 6606 Dec, [facility] [place] [facility] [address] [id number] [place] [address]- 2786 Dec, [facility] [place] [facility] [address] [id number] [place] [address]- 9932 Nov, [facility] [place] [facility] [address] [id number] [place] [address]- 7841 Nov, [facility] [place] [facility] [address] [id number] [place] [address]- 3466 Nov, [facility] [place] [facility] [address] [id number] [place] [address]- 4775 Nov, [facility] [place] [facility] [address] [id number] [place] [address]- 8536 Nov, [facility] [place] [facility] [address] [id number], [place] [address]- 1261 Nov, [facility] [place] [facility] [address] [id number] [place] [address]- 4252 Nov, [facility] [place] [facility] [address] [id number], [place] [address]- 4289 Nov, [facility] [place] [facility] [address] [id number], [place] [address]- 0775 Nov, [facility] [place] [facility] [address] [id number], [place] [address]- 0072 Nov, [facility] [place] [facility] [address] [id number] [place] [address]- 2596 Nov, [facility] [place] [facility] [address] [id number] [place] [address]- 9789 Nov, [facility] [place] [facility] [address] [id number], [place] [address]- 4901 Nov, [facility] [place] [facility] [address] [id number], [place] [address]- 0732 Nov, [facility] [place] [facility] [address] [id number] [place] [address]- 2629 Oct, [facility] [place] [facility] [address] [id number] [place] [address]- 0613 Oct, [facility] [place] [facility] [address] [id number] [place] [address]- 7872 Oct, [facility] [place] [facility] [address] [id number] [place] [address]- 1176 Oct, [facility] [place] [facility] [address] [id number] [place] [address]- 7844 Oct, [facility] [place] [facility] [address] [id number] [place] [address]- 9431 Oct, [facility] [place] [facility] [address] [id number] [place] [address]- 0843 Oct, [facility] [place] [facility] [address] [id number] [place] [address]- 0059 Oct, [facility] [place] [facility] [address] [id number] [place] [address]- 2647 Oct, [facility] [place] [facility] [address] [facility] [id number] [place] [address]- 7365 Sep, [facility] [place] [facility] [address] [id number] [place] [address]- 0007 Sep, [facility] [place] [facility] [address] [id number] [place] [address]- 0193 Sep, [facility] [place] [facility] [address] [id number] [place] [address]- 1355 Sep, [facility] [place] [facility] [address] [id number] [place] [address]- 9021 Sep, [facility] [place] [facility] [address] [facility] [id number] [place] [address]- 5056 Sep, [facility] [place] [facility] [address] [id number] [place] [address]- 3062 Sep, [facility] [place] [facility] [address] [id number] [place] [address]- 6075 Sep, [facility] [place] [facility] [address] [id number] [place] [address]- 8513 Sep, [facility] [place] [facility] [address] [id number] [place] [address]- 8363 Sep, [facility] [place] [facility] [address] [id number] [place] [address]- 5551 Sep, [facility] [place] [facility] [address] [id number] [place] [address]- 9268 Sep, [facility] [place] [facility] [address] [id number] [place] [address]- 6644 Aug, [facility] [place] [facility] [address] [id number] [place] [address]- 6093 Aug, [facility] [place] [facility] [address] [id number] [place] [address]- 2129 Aug, [facility] [place] [facility] [address] [id number] [place] [address]- 9310 Aug, [facility] [place] [facility] [address] [id number] [place] [address]- 9800 Aug, [facility] [place] [facility] [address] [id number] [place] [address]- 8742 Aug, [facility] [place] [facility] [address] [id number] [place] [address]- 3262 Aug, [facility] [place] [facility] [address] [id number] [place] 8256 Aug, [facility] [place] [facility] [address] [id number] [place] 7096 30 Jul, 2014 [facility] [place] [facility] [address] [id number] [place] [address]- 8337 30 Jul, 2013 [facility] [place] [facility] [address] [id number] [place] [address]- 0359 30 Jul, 2013 [facility] [place] [facility] [address] [id number] [place] [address]- 7913 30 Jul, 2013 [facility] [place] [facility] [address] [id number] [place] [address]- 6255 25 Jul, 2014 [facility] [place] [facility] [address] [id number] [place] [address]- 3894 25 Jul, 2013 [facility] [place] [facility] [address] [id number] [place] [address]- 8607 15 Jul, 2014 [facility] [place] [facility] [address] [id number] [place] [address]- 5542 15 Jul, 2014 [facility] [place] [facility] [address] [id number] [place] [address]- 9224 Jul, [facility] [place] [facility] [address] [id number] [place] [address]- 5272 Jul, [facility] [place] [facility] [address] [id number] [place] [address]- 7078 Jun, [facility] [place] [facility] [address] [id number] [place] [address]- 0314 Jun, [facility] [place] [facility] [address] [id number] [place] [address]- 6285 Jun, [facility] [place] [facility] [address] [id number] [place] [address]- 0059 Jun, [facility] [place] [facility] [address] [id number] [place] [address]- 4406 Jun, [facility] [place] [facility] [address] [id number] [place] [address]- 3503 Jun, [facility] [place] [facility] [address] [id number] [place] [address]- 1996 Jun, [facility] [place] [facility] [address] [id number] [place] [address] Jun, [facility] [place] [facility] [address] [id number] [place] [address] Jun, [facility] [place] [facility] [address] [id number] [place] [address] Jun, [facility] [place] [facility] [address] [id number] [place] [address] Jun, [facility] [place] [facility] [address] [id number] [place] [address] Jun, [facility] [place] [facility] [address] [id number] [place] [address] Jun, [facility] [place] [facility] [address] [id number] [place] [address] Jun, [facility] [place] [facility] [address] [id number] [place] [address] Jun, [facility] [place] [facility] [address] [id number] [place] [address] Jun, [facility] [place] [facility] [address] [id number] [place] [address] Jun, [facility] [place] [facility] [address] [id number] [place] [address] Jun, [facility] [place] [facility] [address] [id number] [place] [address] Jun, [facility] [place] [facility] [address] [id number] [place] [address] Jun, [facility] [place] [facility] [address] [id number] [place] [address]- [address] Jun, [facility] [place] [facility] [address] [id number] [place] [address] 1984 Jun, [facility] [place] [facility] [address] [id number] [place] [address] May, [facility] [place] [facility] [address] [id number] [place] [address] May, [facility] [place] [facility] [address] [id number] [place] [address] May, [facility] [place] [facility] [address] [id number] [place] [address]- [address] May, [facility] [place] [facility] [address] [id number] [place] [address]- [address] May, [facility] [place] [facility] [address] [id number] [place] [address] May, [facility] [place] [facility] [address] [id number] [place] [address] 1979 May, [facility] [place] [facility] [address] [id number] [place] [address] May, [facility] [place] [facility] [address] [id number] [place] [address]- [address] May, [facility] [place] [facility] [address] [id number] [place] [address] May, [facility] [place] [facility] [address] [id number] [place] [address] May, [facility] [place] [facility] [address] [id number] [place] [address] May, [facility] [place] [facility] [address] [id number] [place] [address] May, [facility] [place] [facility] [address] [id number] [place] [address] Apr, [facility] [place] [facility] [address] [id number] [place] [address] Apr, [facility] [place] [facility] [address] [id number] [place] [address] Apr, [facility] [place] [facility] [address] [id number] [place] [address] 2004 Apr, [facility] [place] [facility] [address] [id number] [place] [address] Apr, [facility] [place] [facility] [address] [id number] [place] [address] Apr, [facility] [place] [facility] [address] [id number] [place] [address] Apr, [facility] [place] [facility] [address] [id number] [place] [address] Apr, [facility] [place] [facility] [address] [id number] [place] [address] Apr, [facility] [place] [facility] [address] [id number] [place] [address] March, [facility] [place] [facility] [address] [address] [id number] [place] [address] March, [facility] [place] [facility] [address] [id number] [place] [address] 4769 March, [facility] [place] [facility] [address] [id number] [place] [address]157 March, [facility] [place] [facility] [address] [id number] [place] [address] 9031 March, [facility] [place] [facility] [address] [id number] [place] [address] 0835 March, [facility] [place] [facility] [address] [id number] [place] [address] 1723 March, [facility] [place] [facility] [address] [id number] [place] [address] 9409 March, [facility] [place] [facility] [address] [id number] [place] [address] 6403 March, [facility] [place] [facility] [address] [id number] [place] [address]- 3885 March, [facility] [place] [facility] [address] [id number] [place] [address] 4676 March, [facility] [address] [id number] [place] [address] 4212 March, [facility] [address] [id number] [place] [address] 5873 March, [facility] [address] [id number] [place] [address]- 1595 March, [facility] [address] [id number] [place] [address]- 3428 March, [facility] [address] [id number] [place] [address]- 7843 March, [facility] [address] [id number] [place] [address]- 3145 March, [facility] [address] [id number] [place] [address]- 6163 March, [facility] [address] [id number] [place] [address]- 4181 March, [facility] [address] [id number] [place] [address]- 5961 March, [facility] [address] [id number] [place] [address]- 7239 Feb, [facility] [place] [facility] [address] [id number] [place] [address] 2211 Feb, [facility] [address] [id number] [place] [address]- 3485 Feb, [facility] [place] [facility] [address] [id number] [place] [address]- 7642 Feb, [facility] [address] [id number] [place] [address]- 4980 Feb, [facility] [place] [facility] [address] [id number] [place] [address]- 0195 Feb, [facility] [place] [facility] [address] [id number] [place] [address]- 7252 Feb, [facility] [place] [facility] [address] [id number] [place] [address]- 2297 Feb, [facility] [place] [facility] [address] [id number] [place] [address]- 7477 Jan, [facility] [place] [facility] [address] [id number] [place] [address]- 9995 Jan, [facility] [place] [facility] [address] [id number] [place] [address]- 2906 Jan, [facility] [place] [facility] [address] [id number] [place] [address]- 1534 Jan, [facility] [place] [facility] [address] [id number] [place] [address]- 5288 Jan, [facility] [place] [facility] [address] [id number] [place] [address]- 4353 Jan, [facility] [place] [facility] [address] [id number] [place] [address]- 7123 Jan, [facility] [place] [facility] [address] [id number] [place] [address]- 9193 Jan, [facility] [place] [facility] [address] [id number] [place] [address]- 8567 Jan, [facility] [place] [facility] [address] [id number] [place] [address]- 7153 Jan, [facility] [place] [facility] [address] [id number] [place] [address]- 1183 Dec, [facility] [place] [facility] [address] [id number] [place] [address]- 5846 Dec, [facility] [place] [facility] [address] [id number] [place] [address]- 6645 Dec, [facility] [place] [facility] [address] [id number] [place] [address]- 25[address] 2013 [facility] [place] [facility] [address] [id number] [place] [address]- 9441 2013 [facility] [place] [facility] [address] [id number] [place] [address]- 0546 13 Dec, 2013 [facility] [place] [facility] [address] [id number] [place] [address]- 8966 Dec, [facility] [place] [facility] [address] [id number] [place] [address]- 7774 Dec, [facility] [place] [facility] [address] [id number] [place] [address]- 6768 Nov, [facility] [place] [facility] [address] [id number] [place] [address]- 9584 Nov, [facility] [place] [facility] [address] [id number] [place] [address]- 3116 Nov, [facility] [place] [facility] [address] [id number] [place] [address]- 8690 Nov, [facility] [place] [facility] [address] [id number] [place] [address]- 0874 Nov, [facility] [place] [facility] [address] [id number] [place] [address]- 5308 Nov, [facility] [place] [facility] [address] [id number] [place] [address]- 8342 Nov, [facility] [place] [facility] [address] [id number] [place] [address]- 7025 Nov, [facility] [place] [facility] [address] [id number] [place] [address]- 3898 Nov, [facility] [place] [facility] [address] [id number] [place] [address]- 6550 Nov, [facility] [place] [facility] [address] [id number] [place] [address]- 6338 Nov, [facility] [address] [id number] [place] [address]- 6374 Nov, [facility] [address] [id number] [place] [address]- 0961 Nov, [facility] [address] [id number] [place] [address]- 4279 Oct, [facility] [place] [facility] [address] [id number] [place] [address]- 8734 Oct, [facility] [address] [id number] [place] [address] Oct, [facility] [place] [facility] [address] [id number] [place] [address]- 0668 Oct, [facility] [address] [id number] [place] [address]- 2934 Oct, [facility] [address] [id number] [place] [address]- 3815 Oct, [facility] [place] [facility] [address] [id number] [place] [address]- 9289 Oct, [facility] [address] [id number] [place] [address]- 7317 Oct, [facility] [place] [facility] [address] [id number] [place] [address]- 3226 Oct, [facility] [place] [facility] [address] [id number], [place] [address]- 9064 Oct, [facility] [place] [facility] [address] [id number] [place] [address]- 5029 Oct, [facility] [place] [facility] [address] [id number] [place] [address]- 0016 Oct, [facility] [place] [facility] [address] [id number], [place] [address]- 0027 Oct, [facility] [place] [facility] [address] [id number], [place] [address]- 6105 Oct, [facility] [place] [facility] [address] [id number] [place] [address]- 0864 Sep, [facility] [place] [facility] [address] [id number], [place] [address]- 7872 Sep, [facility] [place] [facility] [address] [facility] [id number] [place] [address]- 5087 Sep, [facility] [place] [facility] [address] [id number], [place] [address]- 9254 Sep, [facility] [place] [facility] [address] [id number] [place] [address]- 3584 Sep, [facility] [place] [facility] [address] [id number] [place] [address]- 9461 Sep, [facility] [place] [facility] [address] [facility] [id number], [place] [address]- 8778 Sep, [facility] [place] [facility] [address] [id number], [place] [address]- 1549 Sep, [facility] [place] [facility] [address] [facility] [id number], [place] [address]- 5238 Sep, [facility] [place] [facility] [address] [facility] [id number], [place] [address]- 6002 Sep, [facility] [place] [facility] [address] [id number], [place] [address]- 9834 Aug, [facility] [place] [facility] [address] [id number], [place] [address]- 1594 Aug, [facility] [place] [facility] [address] [id number], [place] [address]- 0829 Aug, [facility] [place] [facility] [address] [facility] [id number], [place] [address]- 4714 Aug, [facility] [place] [facility] [address] [facility] [id number], [place] [address]- 4824 Aug, [facility] [place] [facility] [address] [id number] [place] [address]- 4208 23 Aug, 2012 [facility] [place] [facility] [address] [id number] [place] [address]- 2125 23 Aug, 2012 [facility] [place] [facility] [address] [id number] [place] [address]- 2068 23 Aug, 2012 [facility] [place] [facility] [address] [id number] [place] [address]- 7693 22 Aug, 2012 [facility] [place] [facility] [address] [id number] [place] [address]- 2457 22 Aug, 2012 [facility] [place] [facility] [address] [id number] [place] [address]- 8377 18 Aug, 2012 [facility] [place] [facility] [address] [id number] [place] [address]- 5974 18 Aug, 2012 [facility] [place] [facility] [address] [id number] [place] [address]- 6864 18 Aug, 2012 [facility] [place] [facility] [address] [id number] [place] [address]- 7988 18 Aug, 2012 [facility] [place] [facility] [address] [id number] [place] [address]- 7026 17 Aug, 2012 [facility] [place] [facility] [address] [id number] [place] [address]- 9466 14 Aug, 2012 [facility] [place] [facility] [address] [id number] [place] [address]- 4667 14 Aug, 2012 [facility] [place] [facility] [address] [id number] [place] [address]- 7155 01 Aug, 2012 [facility] [place] [facility] [address] [id number] [place] [address]- 5141 20 Jul, 2012 [facility] [place] [facility] [address] [id number] [place] [address]- 1826 19 Jul, 2012 [facility] [place] [facility] [address] [id number] [place] [address]- 1413 Jul, [facility] [place] [facility] [address] [id number] [place] [address]- 4328 Jul, [facility] [place] [facility] [address] [id number] [place] [address]- 2077 Jul, [facility] [place] [facility] [address] [id number] [place] [address]- 2737 Jun, [facility] [place] [facility] [address] [id number] [place] [address]- 5122 Jun, [facility] [place] [facility] [address] [id number] [place] [address]- 3558 Jun, [facility] [place] [facility] [address] [id number] [place] [address]- 1051 Jun, [facility] [place] [facility] [address] [id number] [place] [address]- 0534 Jun, [facility] [place] [facility] [address] [id number] [place] [address]- 6556 Jun, [facility] [place] [facility] [address] [id number] [place] [address]- 5778 Jun, [facility] [place] [facility] [address] [id number] [place] [address]- 1334 Jun, [facility] [place] [facility] [address] [id number] [place] [address]- 0742 Jun, [facility] [place] [facility] [address] [id number] [place] [address]- 7845 Jun, [facility] [place] [facility] [address] [id number] [place] [address]- 5832 May, [facility] [place] [facility] [address] [id number] [place] [address]- 7527 May, [facility] [place] [facility] [address] [id number] [place] [address]- 8007 May, [facility] [place] [facility] [address] [id number] [place] [address]- 7773 May, [facility] [address] [id number] [place] [address]- 2527 May, [facility] [place] [facility] [address] [id number] [place] [address]- 5076 May, [facility] [address] [id number] [place] [address]- 4048 May, [facility] [place] [facility] [address] [id number] [place] [address]- 3735 May, [facility] [address] [id number] [place] [address]- 5608 May, [facility] [place] [facility] [address] [id number] [place] [address]- 0119 Apr, [facility] [address] [id number] [place] [address]- 4422 Apr, [facility] [place] [facility] [address] [id number] [place] [address]- 5488 Apr, [facility] [place] [facility] [address] [id number] [place] [address]- 4582 Apr, [facility] [address] [id number] [place] [address]- 8861 Apr, [facility] [place] [facility] [address] [id number] [place] [address]- 4449 Apr, [facility] [place] [facility] [address] [id number] [place] [address]- 7295 Apr, [facility] [place] [facility] [address] [id number] [place] [address]- 7738 March, [facility] [place] [facility] [address] [id number] [place] [address]- 9257 Feb, [facility] [place] [facility] [address] [id number] [place] [address]- 1893 Feb, [facility] [place] [facility] [address] [id number] [place] [address]- 7294 12 Feb, 2013 [facility] [place] [facility] [address] [id number] [place] [address]- 9671 28 Jan, 2013 [facility] [place] [facility] [address] [id number] [place] [address]- 1367 21 Jan, 2013 [facility] [place] [facility] [address] [id number] [place] [address]- 4408 19 Jan, 2013 [facility] [place] [facility] [address] [id number] [place] [address]- 5267 14 Jan, 2013 [facility] [place] [facility] [address] [id number] [place] [address]- 6881 12 Jan, 2013 [facility] [address] [id number] [place] [address]- 2456 08 Jan, 2013 [facility] [place] [facility] [address] [id number] [place] [address]- 0373 07 Jan, 2013 [facility] [place] [facility] [address] [id number] [place] [address]- 7414 04 Jan, 2013 [facility] [place] [facility] [address] [id number] [place] [address]- 0878 28 Dec, 2012 [facility] [place] [facility] [address] [id number] [place] [address]- 7388 25 Dec, 2012 [facility] [place] [facility] [address] [id number] [place] [address]- 8335 13 Dec, 2012 [facility] [place] [facility] [address] [id number] [place] [address]- 6523 11 Dec, 2012 [facility] [place] [facility] [address] [id number] [place] [address]- 2336 07 Dec, 2012 [facility] [place] [facility] [address] [id number] [place] [address]- 8594 06 Dec, 2012 [facility] [place] [facility] [address] [id number] [place] [address]- 5273 05 Dec, 2012 [facility] [address] [id number] [place] [address]- 1114 31 Nov, 2012 [facility] [address] [id number] [place] [address]- 8133 24 Nov, 2012 [facility] [address] [id number] [place] [address]- 9486 Nov, [facility] [address] [id number] [place] [address]- 2579 15 Nov, 2012 [facility] [address] [id number] [place] [address]- 5876 Nov, [facility] [address] [id number] [place] [address]- 1294 Nov, [facility] [address] [id number] [place] [address]- 3655 Nov, [facility] [address] [id number] [place] [address]- 0747 Oct, [facility] [address] [id number] [place] 7090 Oct, [facility] [address] [id number] [place] [address]- 0949 Oct, [facility] [address] [id number] [place] [address]- 2083 Oct, [facility] [place] [facility] [address] [id number] [place] [address]- 0073 Oct, [facility] [address] [id number] [place] [address]- 4861 17 Oct, 2012 [facility] [place] [facility] [address] [id number] [place] [address]- 3226 Oct, [facility] [address] [id number] [place] [address]- 7888 07 Oct, 2012 [facility] [place] [facility] [address] [id number] [place] [address]- 2264 Oct, [facility] [place] [facility] [address] [id number] [place] [address]- 7133 Oct, [facility] [place] [facility] [address] [id number] [place] 6203 Oct, [facility] [place] [facility] [address] [id number] [place] [address]- 2938 Oct, [facility] [place] [facility] [address] [id number] [place] [address]- 5996 Sep, [facility] [place] [facility] [address] [id number] [place] [address]- 1635 Sep, [facility] [place] [facility] [address] [id number] [place] [address]- 5910 Sep, [facility] [place] [facility] [address] [id number] [place] [address]- 2822 Sep, [facility] [place] [facility] [address] [id number] [place] [address]- 1928 Sep, [facility] [place] [facility] [address] [id number] [place] [address]- 1358 Sep, [facility] [place] [facility] [address] [id number] [place] [address]- 8012 Sep, [facility] [place] [facility] [address] [id number] [place] [address]- 5601 Sep, [facility] [place] [facility] [address] [id number] [place] [address]- 9858 Sep, [facility] [place] [facility] [address] [id number] [place] [address]- 7440 Sep, [facility] [place] [facility] [address] [id number] [place] [address]- 3655 Sep, [facility] [place] [facility] [address] [id number] [place] [address]- 4668 Aug, [facility] [place] [facility] [address] [id number] [place] [address]- 5949 Aug, [facility] [place] [facility] [address] [id number] [place] [address]- 6126 Aug, [facility] [place] [facility] [address] [id number] [place] [address]- 0916 Aug, [facility] [place] [facility] [address] [id number] [place] [address]- 8036 Aug, [facility] [place] [facility] [address] [id number] [place] [address]- 9023 Aug, [facility] [place] [facility] [address] [id number] [place] [address]- 7921 Aug, [facility] [place] [facility] [address] [id number] [place] [address]- 3195 Aug, [facility] [place] [facility] [address] [id number] [place] [address]- 8601 Aug, [facility] [place] [facility] [address] [id number] [place] [address]- 3349 Aug, [facility] [place] [facility] [address] [id number] [place] [address]- 6569 Jul, [facility] [place] [facility] [address] [id number], [place] [address]- 7088 20 Jul, 2012 [facility] [place] [facility] [address] [id number], [place] [address]- 8181 10 Jul, 2012 [facility] [place] [facility] [address] [id number] [place] [address]- 5486 06 Jul, 2012 [facility] [place] [facility] [address] [facility] [id number] [place] [address] 30 Jun, 2012 [facility] [place] [facility] [address] [id number] [place] [address] Jun, [facility] [place] [facility] [address] [id number] [place] [address] 16 Jun, 2012 [facility] [address] [id number] [place] [address] Jun, [facility] [place] [facility] [address] [id number] [place] [address] Jun, [facility] [place] [facility] [address] [id number] [place] [address] Jun, [facility] [place] [facility] [address] [id number] [place] [address] Jun, [facility] [place] [facility] [address] [id number] [place] [address] May, [facility] [place] [facility] [address] [id number] [place] [address] May, [facility] [place] [facility] [address] [id number] [place] [address] May, [facility] [address] [id number] [place] [address] May, [facility] [place] [facility] [address] [id number] [place] [address] May, [facility] [place] [facility] [address] [id number] [place] [address] Apr, [facility] [place] [facility] [address] [id number] [place] [address] 4736 Apr, [facility] [place] [facility] [address] [id number] [place] [address]27 Apr, [facility] [place] [facility] [address] [id number] [place] [address] 8670 Apr, [facility] [place] [facility] [address] [id number] [place] [address] Apr, [facility] [place] [facility] [address] [id number] [place] [address] March, [facility] [address] [id number] [place] [address] March, [facility] [address] [id number] [place] [address]169 March, [facility] [address] [id number] [place] [address]70 March, [facility] [address] [id number] [place] [address]90 March, [facility] [address] [id number] [place] [address] March, [facility] [address] [id number] [place] [address] 2009 March, [facility] [address] [id number] [place] [address]681 March, [facility] [address] [id number] [place] [address] 280[address] March, [facility] [address] [id number] [place] [address]672 March, [facility] [address] [id number] [place] [address] 120[address] Feb, [facility] [place] [facility] [address] [id number] [place] [address] 8964 Feb, [facility] [place] [facility] [address] [id number] [place] [address] 4[address] Feb, [facility] [place] [facility] [address] [id number] [place] [address]32 Feb, [facility] [place] [facility] [address] [id number] [place] [address] Feb, [facility] [place] [facility] [address] [id number] [place] [address] Feb, [facility] [place] [facility] [address] [id number], [place] [address] Feb, [facility] [address] [id number] [place] [address] Feb, [facility] [place] [facility] [address] [id number] [place] [address] 2967 Feb, [facility] [place] [facility] [address] [facility] [id number] [place] [address]- [address] Jan, [facility] [place] [facility] [address] [id number] [place] [address] Jan, [facility] [place] [facility] [address] [id number] [place] [address] 12[address] Jan, [facility] [place] [facility] [address] [id number] [place] [address] Jan, [facility] [id number] [place] [address] Dec, [facility] [place] [facility] [address] [facility] [id number] [place] [address]- [address]266 Dec, [facility] [place] [facility] [address] [facility] [id number] [place] [address]- 1126 Nov, [facility] [place] [facility] [address] [facility] [id number] [place] [address]- [address]137 Nov, [facility] [address] [facility] [id number] [place] [address]- 8648 Nov, [facility] [place] [facility] [address] [id number] [place] [address]- [address] Nov, [facility] [place] [facility] [address] [id number] [place] [address]140 Nov, [facility] [place] [facility] [address] [facility] [id number] [place] [address]209 Oct, [facility] [place] [facility] [address] [facility] [id number] [place] [address] Oct, [facility] [place] [facility] [address] [id number], [place] [address] Oct, [facility] [id number], [place] [address] Oct, [facility] [id number], [place] [address] Oct, [facility] [id number] [address] Oct, [facility] [id number], [place] [address] Oct, [facility] [address] [id number], [place] [address] Oct, [facility] [address] [id number], [place] [address] Sep, IMMUNIZATIONS No Known Immunizations SOCIAL HISTORY Never Assessed REASON FOR VISIT Controlled Med Refill PLAN OF CARE VITAL SIGNS MEDICATIONS Medication Instructions Dosage Frequency Start Date End Date Duration Status MS Contin 30 MG Orally every 12 hrs (PT IS IN [facility]) 1 tablet Apr, 28 days Active RESULTS No Results PROCEDURES No Known procedures INSTRUCTIONS MEDICATIONS ADMINISTERED No Known Medications
--- OUTSIDE RECORDS SUMMARY | 2018-04-01 08:00 | XMS REPORT ---
Author Author SHAHNAZ MARQUEZ [facility] Address [address] [place] [address] Care Team Providers Care Cafeteria Monitor Name Role Phone SHAHNAZ MARQUEZ Unavailable PROBLEMS Type Condition ICD9-CM Code QHP70-ZW Code Onset Dates Condition Status SNOMED Code Problem Other chronic pain G89.29 Active 40568235 Problem Type 2 diabetes mellitus without complication, without long-term current use of insulin E11.9 Active 018130502 Problem Low back pain M54.5 Active 076488008 Problem Hypertension I10 Active 25895121 Problem Coronary artery disease I25.10 Active 88013013 Problem Hyperlipidemia E78.5 Active 73402078 Problem Peripheral vascular disease I73.9 Active 784715236 Problem Insomnia G47.00 Active 428619625 Problem Reactive depression F32.9 Active 34113237 Problem Ventral hernia without obstruction or gangrene K43.9 Active 844677682 Problem Anxiety F41.9 Active 14977924 Problem Pharyngeal dysphagia R13.13 Active [id number] ALLERGIES No Information ENCOUNTERS Encounter Location Date Diagnosis [place] [id number] [place] [address] 09692- 3549 Feb, [facility] [id number] [place] [address] 52430- 7146 Feb, Other chronic pain G89.29 Via [facility] [address] [place] [place] [id number] Feb, Other chronic pain G89.29 and Anxiety F41.9 [facility] [id number] [place] [address] 17241- 3826 Feb, [facility] [id number] [place] [address] 03235- 3099 Jan, [facility] [id number] [place] [address] 53782175- 4502 Jan, [facility] [id number], [place] [address] 6026 Jan, [facility] [address] [id number] [address] [address] Jan, [facility] [id number], [place] [address] 4764 Dec, Via [facility] [address] [place] [address] Dec, Peripheral vascular disease I73.9 ; 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 ; Other chronic pain G89.29 ; Anxiety F41.9 ; Reactive depression F32.9 ; Insomnia G47.00 and Type 2 diabetes mellitus without complication, without long-term current use of insulin E11.9 [facility] ADRIENNE SANCHEZ [id number] [address] Nov [facility] [id number] [id number] Nov, Anxiety F41.9 [facility] [address] [id number], [place] [address] 1204 Nov, [facility] [id number] [address] Nov, Anxiety F41.9 Via [facility] [address] [place] [place] [id number] Nov, Status post surgery Z98.890 ; Confused R41.0 ; Anxiety F41.9 and Other chronic pain G89.29 [facility] [place] [address] [id number] [id number] Nov, Other chronic pain G89.29 [facility] [address] [id number], [place] [address] 6681 Oct, [facility] [place] [id number] [address] Oct, Other chronic pain G89.29 [facility] [address], [place] [address] 2546 Oct, Anxiety F41.9 [facility] [id number] [place] [address] [id number] Sep, Other chronic pain G89.29 [facility] [place] [address] [id number] [address] Sep, Via [facility] [address] [place] [id number] Aug, Dysuria R30.0 and Anxiety F41.9 [facility] [address]00565[address] [address] Aug, [facility] [place] [id number] [place] [address] [id number] Aug, Other chronic pain G89.29 [facility] [address] [place] [address] 42865- 0472 Jul, Other chronic pain G89.29 [facility] [id number] [place] [address] [id number] Jun, [facility] [id number] [place] [address] [id number] Jun, Other chronic pain G89.29 [facility] [address], [place] [address] 3303 Jun, [facility] [address] [place] [address] 53364- 6859 May, Other chronic pain G89.29 [facility] [address] [id number], [place] [address] 3653 Apr, Other chronic pain G89.29 Via [facility] [address] [place] [id number] Apr, Reactive depression F32.9 and Pharyngeal dysphagia R13.13 [facility] [id number] [address] Apr, Urinary tract infection without hematuria, site unspecified N39.0 [facility] [id number], [place] [address] 5385 March, Other chronic pain G89.29 [facility] [address]65[address], [place] [address] 2068 Feb, Other chronic pain G89.29 [facility] [address], [place] [address] 8980 Feb, [facility] [place] [id number] [place] [address] [id number] Feb, Via [employer] [facility] [address] [place] [id number] Feb, Dysuria R30.0 and Ventral hernia without obstruction or gangrene K43.9 [facility] [address] [place] [address] 17341- 5888 Jan, Other chronic pain G89.29 [facility] [place] [id number] [place] [address] [id number] Dec, Other chronic pain G89.29 [facility] [address] [place] [address] 42387- 9499 Nov, Other chronic pain G89.29 Via [employer] [facility] [address] [place] [id number] Nov, Lymphadenitis I88.9 [facility] [address] [place] [address] 93980- 1789 Nov, Other chronic pain G89.29 [facility] [address] [id number], [place] [address] 2016 Nov, [facility] [id number] [place] [id number] Nov, Other chronic pain G89.29 Via [facility] [address] [place] [id number] Oct, Low back pain M54.5 ; Hypertension I10 and Type 2 diabetes mellitus without complication, without long-term current use of insulin E11.9 [place] [address] [facility] [id number], [place] [address]- 8720 Oct, [facility] [address] [facility] [id number], [place] [address]- 2635 Oct, [facility] [address] [facility] [id number], [place] [address]- 7802 Oct, [facility] [address] [facility] [id number], [place] [address]- 7971 Oct, [facility] [address] [facility] [id number], [place] [address]- 5117 Sep, [facility] [address] [facility] [id number], [place] [address]- 9244 Sep, [facility] [address] [facility] [id number], [place] [address]- 4887 Aug, Other chronic pain G89.29 [facility] [address] [facility] [id number], [place] [address]- 9090 Jul, [facility] [address] [facility] [id number], [place] [address]- 0651 Jul, [facility] [id number], [place] [address]- 7887 Jul, [facility] [address] [facility] [id number], [place] [address]- 8061 Jun, [facility] [id number], [place] [address]- 9706 Jun, Via [facility] [address] [place] [id number] Jun, Low back pain M54.5 ; Other chronic pain G89.29 and Coronary artery disease I25.10 [facility] [address] [facility] [id number], [place] [address]- 1069 Jun, [facility] [address] [facility] [id number], [place] [address]- 8627 May, [facility] [address], [place] [address]- 2274 15 May, 2016 [facility] [address], [place] [address]- 4366 May, Other chronic pain G89.29 [facility] [address], [place] [address]- 1866 May, [facility] [id number] [place] [address] 01256- 3009 28 Apr, 2016 [facility] [address]65[address], [place] [address]- 6825 17 Apr, 2016 Acute cystitis without hematuria N30.00 [facility] [address]65[address], [place] [address]- 2488 16 Apr, 2016 Acute cystitis without hematuria N30.00 ; Coronary artery disease I25.10 ; Low back pain M54.5 and Other chronic pain G89.29 [facility] [address]65[address], [place] [address]- 5366 Apr, Other chronic pain G89.29 [facility] [address], [place] [address]- 7130 March, Other chronic pain G89.29 [facility] [address], [place] [address]- 6410 18 Feb, 2016 [facility] [address], [place] [address]- 9620 15 Feb, 2016 Arthritis M19.90 [facility] [address]65[address], [place] [address] 2546 Feb, [facility] [address], [place] [address] 2546 30 Jan, 2016 [facility] [address], [place] [address]- 3957 Jan, [facility] [address] [place] [address] 35758 2541 Jan, Other chronic pain G89.29 [facility] [address] [place] [address] 25497 2546 Jan, Hypertension I10 ; Coronary artery disease I25.10 and Insomnia G47.00 [facility] [address], [place] [address] 2546 Jan, [facility] [id number] [place] [address] 39300 2546 Dec, Right hip pain M25.551 [facility] [id number] [place] [address] 68889 2546 Dec, [facility] [id number] [place] [address] 83317 2546 Dec, [facility] [id number] [place] [address] 80035 2546 Dec, [facility] [id number] [place] [address] 26923 2542 Dec, Other chronic pain G89.29 [facility] [address], [place] [address] 2546 Dec, [facility] [address], [place] [address] 2546 Nov, [facility] [address], [place] [address] 2546 Nov, Other chronic pain G89.29 [facility] [address], [place] [address] 2546 Nov, Right hip pain M25.551 and Coronary artery disease I25.10 [facility] [address], [place] [address] 2546 Nov, Other chronic pain G89.29 [facility] [address], [place] [address]- 7866 Oct, [facility] [address], [place] [address]- 2789 Oct, [facility] [id number] [place] [address] 09741- 5387 Sep, [facility] [id number] [place] [address] 33648- 5066 Sep, [facility] [id number] [place] [address] 06736- 5971 Aug, [facility] [id number] [place] [address] 09050- 3017 Aug, Hypertension I10 ; Coronary artery disease I25.10 and Arthritis M19.90 [facility] [id number] [place] [address] 21112- 0932 Jun, [facility] [id number] [place] [address] 17818- 7056 Jun, Essential hypertension, benign 401.1 ; Other chronic pain 338.29 and Chronic airway obstruction, not elsewhere classified 496 [facility] [id number] [place] [address] 15428- 7456 Jun, [facility] [id number] [place] [address] 87019- 7950 Jun, [facility] [id number] [place] [address] 66172- 6157 Jun, [facility] [address], [place] [address]- 6853 May, [facility] [id number] [place] [address] 30376- 7024 May, [facility] [address], [place] [address]- 8234 Apr, [facility] [address], [place] [address]- 5492 Apr, [facility] [address] [id number] [place] [address]- 5663 Apr, [facility] [address] [id number] [place] [address]- 1996 March, [facility] [address] [id number] [place] [address]- 3448 March, [facility] [address] [id number] [place] [address]- 2963 March, [facility] [address] [id number] [place] [address]- 8612 March, [facility] [address] [id number] [place] [address]- 3554 March, Sialadenitis 527.2 [facility] [address] [id number] [place] [address]- 9138 Feb, [facility] [address] [id number] [place] [address]- 3946 Feb, [facility] [address] [id number] [place] [address]- 9408 Feb, [facility] [address] [id number] [place] [address]- 9034 Feb, [facility] [address] [id number] [place] [address]- 7253 Feb, [facility] [address] [id number] [place] [address]- 0527 Jan, [facility] [address] [id number] [place] [address]- 1662 Jan, [facility] [address] [id number] [place] [address]- 4740 Jan, [facility] [address] [id number] [place] 5881 Jan, [facility] [address] [id number] [place] [address]- 0831 Jan, [facility] [place] [facility] [address] [id number] [place] [address]- 0403 Jan, [facility] [place] [facility] [address] [id number] [place] [address]- 7712 Dec, 2014 [facility] [place] [facility] [address] [id number] [place] [address]- 3296 Dec, 2014 [facility] [place] [facility] [address] [id number] [place] [address]- 9051 Dec, 2014 [facility] [place] [facility] [address] [id number] [place] [address]- 7463 Dec, 2014 [facility] [place] [facility] [address] [id number] [place] [address]- 0105 Dec, [facility] [place] [facility] [address] [id number] [place] [address]- 1251 Dec, [facility] [place] [facility] [address] [id number] [place] [address]- 5156 Nov, [facility] [place] [facility] [address] [id number] [place] [address]- 5765 Nov, [facility] [place] [facility] [address] [facility] [id number] [place] [address]- 5637 Nov, [facility] [place] [facility] [address] [id number] [place] [address]- 9828 Nov, [facility] [place] [facility] [address] [id number] [place] [address]- 0933 Nov, [facility] [place] [facility] [address] [id number] [place] [address]- 2265 Nov, [facility] [place] [facility] [address] [id number] [place] [address]- 6867 Nov, [facility] [place] [facility] [address] [id number], [place] [address]- 7959 Nov, [facility] [place] [facility] [address] [id number] [place] [address]- 3918 Nov, [facility] [address] [id number] [place] [address]- 6731 Nov, [facility] [place] [facility] [address] [id number] [place] [address]- 7781 Nov, [facility] [address] [id number] [place] [address]- 9844 Nov, [facility] [address] [id number] [place] [address]- 7052 Nov, [facility] [address] [id number] [place] [address]- 3829 Nov, [facility] [address] [id number] [place] [address]- 0258 Oct, [facility] [address] [id number] [place] [address]- 5317 Oct, [facility] [place] [facility] [address] [id number] [place] [address]- 3011 Oct, [facility] [place] [facility] [address] [id number] [place] [address]- 5322 18 Oct, 2014 [facility] [place] [facility] [address] [id number] [place] [address]- 5141 18 Oct, 2014 [facility] [place] [facility] [address] [id number] [place] [address]- 9390 17 Oct, 2014 [facility] [place] [facility] [address] [id number] [place] [address]- 7906 17 Oct, 2014 [facility] [place] [facility] [address] [id number] [place] [address]- 7769 10 Oct, 2014 [facility] [place] [facility] [address] [id number] [place] [address]- 7118 10 Oct, 2014 [facility] [place] [facility] [address] [id number] [place] [address]- 1189 Sep, [facility] [place] [facility] [address] [id number] [place] [address]- 5151 Sep, [facility] [place] [facility] [address] [id number] [place] [address]- 9081 Sep, [facility] [place] [facility] [address] [id number] [place] [address]- 7993 Sep, [facility] [place] [facility] [address] [id number] [place] [address]- 3258 Sep, [facility] [place] [facility] [address] [id number] [place] [address]- 7831 Sep, [facility] [place] [facility] [address] [id number] [place] [address]- 6975 Sep, [facility] [place] [facility] [address] [id number] [place] [address]- 6541 Sep, [facility] [place] [facility] [address] [id number] [place] [address]- 6945 Sep, [facility] [place] [facility] [address] [id number] [place] [address]- 7864 Sep, [facility] [place] [facility] [address] [id number] [place] [address]- 1262 Sep, [facility] [place] [facility] [address] [id number], [place] [address]- 0261 Sep, [facility] [place] [facility] [address] [id number], [place] [address]- 6722 Aug, [facility] [place] [facility] [address] [id number] [place] [address]- 7768 Aug, [facility] [place] [facility] [address] [id number] [place] [address]- 9603 Aug, [facility] [place] [facility] [address] [id number] [place] [address]- 8857 Aug, [facility] [place] [facility] [address] [id number] [place] [address]- 6587 28 Aug, 2014 [facility] [place] [facility] [address] [id number] [place] [address]- 4777 28 Aug, 2014 [facility] [place] [facility] [address] [id number] [place] [address]- 2626 17 Aug, 2014 [facility] [place] [facility] [address] [id number] [place] [address]- 7147 17 Aug, 2014 [facility] [place] [facility] [address] [id number] [place] [address]- 4719 30 Jul, 2013 [facility] [place] [facility] [address] [id number] [place] [address]- 8419 30 Jul, 2013 [facility] [place] [facility] [address] [id number] [place] [address]- 5362 30 Jul, 2013 [facility] [place] [facility] [address] [id number] [place] [address]- 3467 30 Jul, 2013 [facility] [place] [facility] [address] [id number] [place] [address]- 1405 25 Jul, 2013 [facility] [place] [facility] [address] [id number] [place] [address] 25 Jul, 2013 [facility] [place] [facility] [address] [id number] [place] [address] 15 Jul, 2014 [facility] [place] [facility] [address] [id number] [place] [address] 15 Jul, 2013 [facility] [place] [facility] [address] [id number] [place] [address] 11 Jul, 2013 [facility] [place] [facility] [address] [id number] [place] [address]- [address] 11 Jul, 2014 [facility] [place] [facility] [address] [id number] [place] [address] Jun, [facility] [place] [facility] [address] [id number] [place] [address] Jun, [facility] [place] [facility] [address] [id number] [place] [address] Jun, [facility] [place] [facility] [address] [id number] [place] [address] Jun, [facility] [place] [facility] [address] [id number] [place] [address] Jun, [facility] [place] [facility] [address] [id number] [place] [address] Jun, [facility] [place] [facility] [address] [id number] [place] [address]- [address] Jun, [facility] [place] [facility] [address] [id number] [place] [address] Jun, [facility] [place] [facility] [address] [id number] [place] [address] Jun, [facility] [place] [facility] [address] [id number] [place] [address]- 139[address] Jun, [facility] [place] [facility] [address] [id number] [place] [address]- 3468 Jun, [facility] [place] [facility] [address] [id number] [place] [address] Jun, [facility] [place] [facility] [address] [id number] [place] [address]- [address] Jun, [facility] [place] [facility] [address] [id number] [place] [address]- [address] Jun, [facility] [place] [facility] [address] [id number] [place] [address]- [address] Jun, [facility] [place] [facility] [address] [id number] [place] [address]- [address] Jun, [facility] [place] [facility] [address] [id number] [place] [address]- [address] Jun, [facility] [place] [facility] [address] [id number] [place] [address]- [address] Jun, [facility] [place] [facility] [address] [id number] [place] [address]- 69[address] Jun, [facility] [place] [facility] [address] [id number] [place] [address]- [address] Jun, [facility] [place] [facility] [address] [id number] [place] [address]- [address] Jun, [facility] [place] [facility] [address] [id number] [place] [address]- [address] Jun, [facility] [place] [facility] [address] [id number] [place] [address] May, [facility] [place] [facility] [address] [id number] [place] [address] May, [facility] [place] [facility] [address] [id number] [place] [address]- [address] May, [facility] [place] [facility] [address] [id number] [place] [address]- [address] May, [facility] [place] [facility] [address] [id number] [place] [address] May, [facility] [place] [facility] [address] [id number] [place] [address]- [address] May, [facility] [place] [facility] [address] [id number] [place] [address]- [address]97 May, [facility] [place] [facility] [address] [id number] [place] [address] May, [facility] [place] [facility] [address] [id number] [place] [address]- [address] May, [facility] [place] [facility] [address] [id number] [place] [address]- [address] May, [facility] [place] [facility] [address] [id number] [place] [address]- [address] May, [facility] [place] [facility] [address] [id number] [place] [address] May, [facility] [place] [facility] [address] [id number] [place] [address]- 2004 May, [facility] [place] [facility] [address] [id number] [place] [address] Apr, [facility] [place] [facility] [address] [id number] [place] [address] Apr, [facility] [place] [facility] [address] [id number] [place] [address] 4684 Apr, [facility] [place] [facility] [address] [id number] [place] [address] 8411 Apr, [facility] [place] [facility] [address] [id number] [place] [address]- 0018 Apr, [facility] [place] [facility] [address] [id number] [place] [address]- 4985 Apr, [facility] [place] [facility] [address] [id number] [place] [address]- 8514 Apr, [facility] [place] [facility] [address] [id number] [place] [address]- 4508 Apr, [facility] [place] [facility] [address] [id number] [place] [address]- 6134 Apr, [facility] [place] [facility] [address] [id number] [place] [address]- 0083 March, [facility] [place] [facility] [address] [id number] [place] [address]- 6690 March, [facility] [place] [facility] [address] [id number] [place] [address]- 5998 March, [facility] [place] [facility] [address] [id number] [place] [address] 9926 March, [facility] [place] [facility] [address] [id number] [place] [address]- [address]32 March, [facility] [address] [id number] [place] [address]- 6843 March, [facility] [place] [facility] [address] [id number] [place] [address]- 3477 March, [facility] [place] [facility] [address] [id number] [place] [address]- 4081 March, [facility] [place] [facility] [address] [id number] [place] [address]- 0841 March, [facility] [place] [facility] [address] [id number] [place] [address]- 1419 March, [facility] [place] [facility] [address] [id number] [place] [address]- 0307 March, [facility] [place] [facility] [address] [id number] [place] [address] 6626 March, [facility] [place] [facility] [address] [id number] [place] [address]- 5120 March, [facility] [place] [facility] [address] [id number] [place] [address]- 2570 March, [facility] [place] [facility] [address] [id number] [place] [address]- 8797 March, [facility] [place] [facility] [address] [id number] [place] [address]- 6484 March, [facility] [place] [facility] [address] [id number] [place] [address]- 1727 March, [facility] [place] [facility] [address] [id number] [place] [address]- 7302 March, [facility] [place] [facility] [address] [id number] [place] [address]- 8555 March, [facility] [place] [facility] [address] [id number] [place] [address]- 5810 March, [facility] [place] [facility] [address] [id number] [place] [address]- 2902 Feb, [facility] [place] [facility] [address] [id number] [place] [address]- 6046 Feb, [facility] [place] [facility] [address] [id number] [place] [address]- 9872 Feb, [facility] [place] [facility] [address] [id number] [place] [address]- 9747 Feb, [facility] [place] [facility] [address] [id number] [place] [address]- 0484 Feb, [facility] [place] [facility] [address] [id number] [place] [address]- 8614 Feb, [facility] [place] [facility] [address] [id number] [place] [address]- 1147 Feb, [facility] [place] [facility] [address] [id number] [place] [address]- 8604 Feb, [facility] [place] [facility] [address] [id number] [place] [address]- 9131 Jan, [facility] [place] [facility] [address] [id number] [place] [address]- 0534 Jan, [facility] [place] [facility] [address] [id number] [place] [address]- 3629 Jan, [facility] [place] [facility] [address] [id number] [place] [address]- 4549 24 Jan, 2014 [facility] [place] [facility] [address] [id number] [place] [address]- 7121 Jan, [facility] [place] [facility] [address] [id number] [place] [address]- 2382 Jan, [facility] [place] [facility] [address] [id number] [place] [address]- 0139 Jan, [facility] [place] [facility] [address] [id number] [place] [address]- 7560 Jan, [facility] [place] [facility] [address] [id number] [place] [address]- 1593 Jan, [facility] [place] [facility] [address] [id number] [place] [address]- 0921 Jan, [facility] [place] [facility] [address] [id number] [place] [address]- 9914 Dec, [facility] [place] [facility] [address] [id number] [place] [address]- 3533 Dec, [facility] [place] [facility] [address] [id number] [place] [address]- 3565 Dec, [facility] [place] [facility] [address] [id number] [place] [address]- 0852 Dec, [facility] [place] [facility] [address] [id number] [place] [address]- 4394 Dec, [facility] [place] [facility] [address] [id number] [place] [address]- 9321 Dec, [facility] [place] [facility] [address] [id number] [place] [address]- 6105 Dec, [facility] [place] [facility] [address] [id number] [place] [address]- 1111 Dec, [facility] [place] [facility] [address] [id number] [place] [address]- 5625 Nov, [facility] [place] [facility] [address] [id number] [place] [address]- 9451 Nov, [facility] [place] [facility] [address] [id number] [place] [address]- 9552 Nov, [facility] [place] [facility] [address] [id number] [place] [address]- 1684 Nov, [facility] [place] [facility] [address] [id number] [place] [address]- 8786 Nov, [facility] [place] [facility] [address] [id number] [place] [address]- 5615 Nov, [facility] [address] [id number] [place] [address]- 8946 Nov, [facility] [place] [facility] [address] [id number] [place] [address]- 2388 Nov, [facility] [address] [id number] [place] [address]- 0573 Nov, [facility] [place] [facility] [address] [id number] [place] [address]- 3360 Nov, [facility] [place] [facility] [address] [id number] [place] [address]- 0968 Nov, [facility] [place] [facility] [address] [id number] [place] [address]- 1398 Nov, [facility] [address] [id number] [place] [address]- 4337 Nov, [facility] [place] [facility] [address] [id number] [place] [address]- 1699 30 Oct, 2013 [facility] [place] [facility] [address] [id number] [place] [address]- 4492 30 Oct, 2013 [facility] [place] [facility] [address] [id number] [place] [address]- 4199 Oct, [facility] [place] [facility] [address] [id number] [place] [address]- 1591 Oct, [facility] [place] [facility] [address] [id number] [place] [address]- 2544 Oct, [facility] [place] [facility] [address] [id number] [place] [address]- 8243 Oct, [facility] [place] [facility] [address] [id number] [place] [address]- 3905 Oct, [facility] [place] [facility] [address] [id number] [place] Oct, [facility] [place] [facility] [address] [id number] [place] [address]- 5646 Oct, [facility] [address] [id number] [place] [address]- 4833 Oct, [facility] [place] [facility] [address] [id number] [place] [address]- 4439 Oct, [facility] [address] [id number] [place] [address]- 5669 Oct, [facility] [address] [id number] [place] [address]- 8721 Oct, [facility] [address] [id number] [place] [address]- 1613 Oct, [facility] [address] [id number] [place] [address]- 1892 Sep, [facility] [address] [id number] [place] [address]- 7431 Sep, [facility] [address] [id number] [place] [address]- 3507 Sep, [facility] [address] [id number] [place] [address]- 5094 Sep, [facility] [place] [facility] [address] [id number] [place] [address]- 4756 Sep, [facility] [place] [facility] [address] [id number] [place] [address]- 2636 Sep, [facility] [place] [facility] [address] [id number] [place] [address]- 9569 Sep, [facility] [place] [facility] [address] [id number] [place] [address]- 9824 Sep, [facility] [place] [facility] [address] [id number] [place] [address]- 8824 Sep, [facility] [place] [facility] [address] [id number] [place] [address]- 0186 Sep, [facility] [place] [facility] [address] [id number] [place] [address]- 7140 Aug, [facility] [place] [facility] [address] [id number] [place] [address]- 8513 Aug, [facility] [place] [facility] [address] [id number] [place] [address]- 0165 Aug, [facility] [place] [facility] [address] [id number], [place] [address]- 7264 Aug, [facility] [place] [facility] [address] [id number] [place] [address]- 0586 Aug, [facility] [place] [facility] [address] [id number] [place] [address]- 0034 Aug, [facility] [place] [facility] [address] [id number], [place] [address]- 6350 Aug, [facility] [place] [facility] [address] [id number], [place] [address]- 1940 Aug, [facility] [place] [facility] [address] [id number] [place] [address]- 0330 Aug, [facility] [place] [facility] [address] [id number], [place] [address]- 5639 Aug, [facility] [place] [facility] [address] [id number], [place] [address]- 3178 Aug, [facility] [place] [facility] [address] [id number], [place] [address]- 1260 18 Aug, 2013 [facility] [place] [facility] [address] [id number] [place] [address]- 0949 18 Aug, 2013 [facility] [place] [facility] [address] [id number], [place] [address]- 3399 18 Aug, 2013 [facility] [place] [facility] [address] [id number], [place] [address]- 4948 17 Aug, 2013 [facility] [place] [facility] [address] [id number] [place] [address]- 3045 14 Aug, 2013 [facility] [address] [id number] [place] [address]- 7195 14 Aug, 2013 [facility] [place] [facility] [address] [id number] [place] [address]- 9202 01 Aug, 2013 [facility] [address] [id number] [place] [address]- 9227 20 Jul, 2013 [facility] [place] [facility] [address] [id number] [place] [address]- 5073 19 Jul, 2013 [facility] [address] [id number] [place] [address]- 9923 18 Jul, 2013 [facility] [address] [id number] [place] [address]- 6831 11 Jul, 2013 [facility] [place] [facility] [address] [id number] [place] [address]- 8106 11 Jul, 2013 [facility] [address] [id number] [place] [address]- 1564 28 Jun, 2013 [facility] [place] [facility] [address] [id number] [place] [address]- 0585 Jun, [facility] [address] [id number] [place] [address]- 5977 Jun, [facility] [place] [facility] [address] [id number] [place] [address]- 0739 15 Jun, 2013 [facility] [place] [facility] [address] [id number] [place] [address]- 7349 14 Jun, 2013 [facility] [place] [facility] [address] [id number] [place] [address]- 1612 13 Jun, 2013 [facility] [place] [facility] [address] [id number] [place] [address]- 9638 12 Jun, 2013 [facility] [place] [facility] [address] [id number] [place] [address]- 1799 Jun, [facility] [place] [facility] [address] [id number] [place] [address]- 4580 Jun, [facility] [place] [facility] [address] [id number] [place] [address]- 7335 Jun, [facility] [place] [facility] [address] [id number] [place] [address]- 1418 May, [facility] [place] [facility] [address] [id number] [place] [address]- 8034 May, [facility] [place] [facility] [address] [id number] [place] [address]- 6907 May, [facility] [place] [facility] [address] [id number] [place] [address]- 1845 May, [facility] [place] [facility] [address] [id number] [place] [address]- 8089 May, [facility] [place] [facility] [address] [id number] [place] [address]- 0253 May, [facility] [place] [facility] [address] [id number] [place] [address]- 6352 May, [facility] [place] [facility] [address] [id number] [place] [address]- 8825 May, [facility] [place] [facility] [address] [id number] [place] [address]- 9908 May, [facility] [place] [facility] [address] [id number] [place] [address]- 5396 Apr, [facility] [place] [facility] [address] [id number] [place] [address]- 3865 Apr, [facility] [place] [facility] [address] [id number] [place] [address]- 2463 Apr, [facility] [place] [facility] [address] [id number] [place] [address]- 4955 Apr, [facility] [place] [facility] [address] [id number], [place] [address]- 0722 Apr, [facility] [address] [id number] [place] [address]- 8460 Apr, [facility] [address] [id number] [place] [address]- 5150 Apr, [facility] [address] [facility] [id number] [place] [address]- 7512 March, [facility] [address] [id number] [place] [address]- 8342 Feb, [facility] [address] [id number] [place] [address]- 0693 Feb, [facility] [address] [id number] [place] [address]- 1450 Feb, [facility] [address] [id number] [place] [address]- 4305 Jan, [facility] [address] [id number] [place] [address]- 0670 Jan, [facility] [address] [id number] [place] [address]- 8647 Jan, [facility] [address] [facility] [id number] [place] [address]- 1978 Jan, [facility] [address] [id number] [place] [address]- 4111 Jan, [facility] [address] [id number], [place] [address]- 8851 Jan, [facility] [address] [id number] [place] [address]- 0995 07 Jan, 2013 [facility] [address] [facility] [id number] [place] [address]- 9938 04 Jan, 2013 [facility] [address] [facility] [id number] [place] [address]- 8636 28 Dec, 2012 [facility] [address] [id number] [place] [address]- 8942 25 Dec, 2012 [facility] [place] [facility] [address] [id number] [place] [address]- 0046 13 Dec, 2012 [facility] [place] [facility] [address] [id number] [place] [address]- 7578 11 Dec, 2012 [facility] [place] [facility] [address] [id number] [place] [address]- 3800 07 Dec, 2012 [facility] [place] [facility] [address] [id number] [place] [address]- 4234 06 Dec, 2012 [facility] [place] [facility] [address] [id number] [place] [address]- 7273 05 Dec, 2012 [facility] [place] [facility] [address] [id number] [place] [address]- 3120 Nov, [facility] [place] [facility] [address] [id number] [place] [address]- 6117 Nov, [facility] [place] [facility] [address] [id number] [place] [address]- 0847 Nov, [facility] [place] [facility] [address] [facility] [id number] [place] [address]- 9968 Nov, [facility] [place] [facility] [address] [facility] [id number], [place] [address]- 6519 Nov, [facility] [place] [facility] [address] [id number], [place] [address]- 6918 Nov, [facility] [place] [facility] [address] [id number] [place] [address]- 6017 Nov, [facility] [place] [facility] [address] [id number] [place] [address]- 2006 Oct, [facility] [place] [facility] [address] [id number][place] 1816 Oct, [facility] [place] [facility] [address] [id number], [place] [address]- 5371 Oct, [facility] [place] [facility] [address] [id number] [place] [address]- 0205 Oct, [facility] [place] [facility] [address] [id number] [place] [address]- 9946 Oct, [facility] [place] [facility] [address] [facility] [id number] [place] [address]- 7536 Oct, [facility] [place] [facility] [address] [id number] [place] [address]- 7040 Oct, [facility] [place] [facility] [address] [id number] [place] [address]- 0952 Oct, [facility] [place] [facility] [address] [id number] [place] [address]- 2104 Oct, [facility] [place] [facility] [address] [facility] [id number] [place] [address]- 9644 Oct, [facility] [place] [facility] [address] [id number] [place] [address]- 8772 Oct, [facility] [place] [facility] [address] [facility] [id number] [place] [address]- 0933 Oct, [facility] [place] [facility] [address] [facility] [id number] [place] [address]- 7987 Sep, [facility] [place] [facility] [address] [id number] [place] [address]- 3946 Sep, [facility] [place] [facility] [address] [id number], [place] [address]- 0087 Sep, [facility] [place] [facility] [address] [id number] [place] [address]- 6610 Sep, [facility] [place] [facility] [address] [facility] [id number] [place] [address]- 0169 Sep, [facility] [place] [facility] [address] [facility] [id number] [place] [address]- 0520 Sep, [facility] [place] [facility] [address] [id number] [place] [address]- 1893 Sep, [facility] [place] [facility] [address] [id number] [place] [address]- 9402 Sep, [facility] [place] [facility] [address] [id number] [place] [address]- 2546 Sep, [facility] [place] [facility] [address] [id number] [place] [address]- 0052 Sep, [facility] [place] [facility] [address] [id number] [place] [address]- 4849 Sep, [facility] [place] [facility] [address] [id number] [place] [address]- 7115 Aug, [facility] [place] [facility] [address] [id number] [place] [address]- 6627 Aug, [facility] [place] [facility] [address] [id number] [place] [address]- 1332 Aug, [facility] [place] [facility] [address] [id number] [place] [address] Aug, [facility] [place] [facility] [address] [id number] [place] [address] Aug, [facility] [place] [facility] [address] [facility] [id number] [place] [address] Aug, [facility] [place] [facility] [address] [id number] [place] [address] Aug, [facility] [place] [facility] [address] [id number] [place] [address] Aug, [facility] [place] [facility] [address] [id number] [place] [address] Aug, [facility] [place] [facility] [address] [id number] [place] [address] Aug, [facility] [place] [facility] [address] [id number] [place] [address] 22 Jul, 2012 [facility] [place] [facility] [address] [id number] [place] [address] 20 Jul, 2012 [facility] [place] [facility] [address] [id number] [place] [address] 10 Jul, 2012 [facility] [place] [facility] [address] [id number] [place] [address] 06 Jul, 2012 [facility] [place] [facility] [address] [id number] [place] [address] 30 Jun, 2012 [facility] [place] [facility] [address] [id number] [place] [address]99 Jun, [facility] [place] [facility] [address] [id number] [place] [address] Jun, [facility] [place] [facility] [address] [id number] [place] [address] Jun, [facility] [place] [facility] [address] [id number] [place] [address] Jun, [facility] [place] [facility] [address] [id number] [place] [address] Jun, [facility] [place] [facility] [address] [id number] [place] [address] Jun, [facility] [place] [facility] [address] [id number] [place] [address] 47[address] May, [facility] [place] [facility] [address] [id number] [place] [address] May, [facility] [place] [facility] [address] [id number] [place] [address] May, [facility] [place] [facility] [address] [id number] [place] [address] 1739 May, [facility] [place] [facility] [address] [id number] [place] [address] May, [facility] [place] [facility] [address] [id number] [place] [address] Apr, [facility] [address] [id number] [place] [address] Apr, [facility] [place] [facility] [address] [id number] [place] [address] Apr, [facility] [address] [id number] [place] [address] Apr, [facility] [place] [facility] [address] [id number] [place] [address] Apr, [facility] [address] [id number] [place] [address] March, [facility] [address] [id number] [place] [address] March, [facility] [address] [id number] [place] [address] March, [facility] [address] [id number] [place] [address] March, [facility] [address] [id number] [place] [address] March, [facility] [address] [id number] [place] [address] March, [facility] [address] [id number] [place] [address] 27[address] March, [facility] [place] [facility] [address] [id number] [place] [address] March, [facility] [place] [facility] [address] [id number] [place] [address] 73[address] March, [facility] [place] [facility] [address] [id number] [place] [address] March, [facility] [place] [facility] [address] [id number] [place] [address] Feb, [facility] [place] [facility] [address] [id number] [place] [address] 27 Feb, 2012 [facility] [place] [facility] [address] [id number] [place] [address]- [address] Feb, [facility] [place] [facility] [address] [id number] [place] [address] Feb, [facility] [place] [facility] [address] [id number] [place] [address] 7080 Feb, [facility] [place] [facility] [address] [id number] [place] [address] 8517 Feb, [facility] [place] [facility] [address] [id number] [place] [address] Feb, [facility] [place] [facility] [address] [id number] [place] [address] 6[address] Feb, [facility] [place] [facility] [address] [id number] [place] [address] 6[address] Feb, [facility] [place] [facility] [address] [id number] [place] [address] 37[address] Jan, [facility] [place] [facility] [address] [id number] [place] [address] Jan, [facility] [place] [facility] [address] [id number] [place] [address]- 28[address] Jan, [facility] [place] [facility] [address] [id number] [place] [address] Jan, [facility] [place] [facility] [address] [id number] [place] [address] 37[address] Dec, [facility] [place] [facility] [address] [id number] [place] [address] 9[address] Dec, [facility] [place] [facility] [address] [id number] [place] [address] 1315 Nov, [facility] [place] [facility] [address] [id number], [place] [address] Nov, [facility] [address] [facility] [id number] [address] [address] Nov, [facility] [address] [facility] [id number], [place] [address] Nov, [facility] [id number], [place] [address] Nov, [facility] [address] [facility] [id number][place] [address] Oct, [facility] [address] [facility] [id number], [place] [address] Oct, [facility] [id number], [place] [address] Oct, [facility] [id number], [place] [address] Oct, [facility] [id number], [place] [address] Oct, [facility] [id number], [place] [address] Oct, [facility] [id number], [place] [address] Oct, [facility] [address] [id number], [place] [address] Oct, [facility] [id number], [place] [address] Sep, IMMUNIZATIONS No Known Immunizations SOCIAL HISTORY Never Assessed REASON FOR VISIT Refill request PLAN OF CARE VITAL SIGNS MEDICATIONS Medication Instructions Dosage Frequency Start Date End Date Duration Status MS Contin 30 MG Orally every 12 hrs 1 tablet 12h 12 Jul, 2017 30 days Active RESULTS No Results PROCEDURES No Known procedures INSTRUCTIONS MEDICATIONS ADMINISTERED No Known Medications
--- OUTSIDE RECORDS SUMMARY | 2018-04-01 08:06 | XMS REPORT | Continuity of Care Document ---
Author Author [facility] Address Unknown Phone Unavailable Allergies Active [...] Allergy N/A N/A 05/19/2013 Yes diphenhydramine HCl [id number] Drug Allergy Unknown N/A 05/14/2016 Yes hydrochlorothiazide [id number] Drug Allergy Unknown N/A 05/14/2016 Yes varenicline tartrate [id number] Drug Allergy Unknown N/A 05/14/2016 Yes Sulfa (Sulfonamide Antibiotics) [id number] Drug Allergy Unknown N/A 2016 Medications There [...] 246.9 UNSPECIFIED DISORDER OF THYROID 11/06/2011 BAIG SHANK RANDER, DESI HOUSTON 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 11/06/2011 BAIG SHANK RANDER, DESI HOUSTON 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 11/06/2011 BAIG SHANK RANDER, DESI HOUSTON 496 CHRONIC OBSTRUCTIVE PULMONARY DISEASE 11/06/2011 BAIG SHANK RANDER, DESI HOUSTON 683 ACUTE LYMPHADENITIS 11/06/2011 BAIG SHANK RANDER, DESI HOUSTON 246.9 UNSPECIFIED DISORDER OF THYROID 11/06/2011 BAIG SHANK RANDER, DESI HOUSTON 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 11/06/2011 BAIG SHANK RANDER, DESI HOUSTON 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 11/06/2011 BAIG SHANK RANDER, DESI HOUSTON 496 CHRONIC OBSTRUCTIVE PULMONARY DISEASE 11/06/2011 BAIG SHANK RANDER, DESI HOUSTON 683 ACUTE LYMPHADENITIS 11/06/2011 TARI WOODSN, AUDIE R 246.9 UNSPECIFIED DISORDER OF THYROID 11/06/2011 TARI SHANK RANDER, AUDIE R 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 11/06/2011 TARI SHANK RANDER, AUDIE R 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 11/06/2011 TARI SHANK RANDER, AUDIE R 496 CHRONIC OBSTRUCTIVE PULMONARY DISEASE 11/06/2011 TARI SHANK RANDER, AUDIE R 683 ACUTE LYMPHADENITIS 11/06/2011 JIMMY WOODSN, SHAHNAZ S 246.9 UNSPECIFIED DISORDER OF THYROID 11/06/2011 JIMMY SHANK RANDER, SHAHNAZ S 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 11/06/2011 JIMMY SHANK RANDER SHAHNAZ S 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 11/06/2011 JIMMY SHANK RANDER, SHAHNAZ S 496 CHRONIC OBSTRUCTIVE PULMONARY DISEASE [...] 246.9 UNSPECIFIED DISORDER OF THYROID 11/06/2011 JANINA FUELS SALES REPRESENTATIVEMASSIEL M 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 11/06/2011 JANINA FUELS SALES REPRESENTATIVEMINGOMASSIEL M 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 11/06/2011 JANINA FUELS SALES REPRESENTATIVE, MASSIEL M 496 CHRONIC OBSTRUCTIVE PULMONARY DISEASE 11/06/2011 JANINA FUELS SALES REPRESENTATIVE, MASSIEL M 683 ACUTE LYMPHADENITIS 11/06/2011 HAZEL [...] 296.30 MO DEPRESSIVE RECURRENT UNSPECIFIED 12/18/2011 JIMMY SHANK RANDER, SHAHNAZ S 296.30 MO DEPRESSIVE RECURRENT UNSPECIFIED [...] MASSIEL VEGA 307.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 05/29/2012 MKIE HAZEL DO 307.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 05/29/2012 [...] DIS W AGORA 06/05/2012 MARIA DE JESUS BUTLRE DO V58.69 MEDICATION HIGH RISK 06/05/2012 CAROLINE [...] AN PANIC DIS W AGORA 06/05/2012 SHARIF OJHNSON MD N V58.69 MEDICATION HIGH RISK 06/05/2012 [...] 06/10/2012 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 06/10/2012 HSANIQUE VEGA MD 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 [...] 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 06/27/2012 BAIG SHANK RANDER, DESI CONRAD 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 06/27/2012 SHARIF JOHNSON MD N 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 06/27/2012 SHARIF JOHNSON MD N 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 06/27/2012 JOVANNI SHANK RANDERDESI Menjivar 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 06/27/2012 [...] CAROLINE MENDOZA MD 790.29 HYPERGLYCEMIA 12/18/2012 JOVANNI SHANK RANDER, DESI CONRAD 272.4 HYPERLIPIDEMIA 12/18/2012 JOVANNI SHANK RANDER, DESI CONRAD 790.29 HYPERGLYCEMIA 12/18/2012 JOVANNI SHANK RANDER, DESI CONRAD 272.4 HYPERLIPIDEMIA 12/18/2012 JOVANNI SHANK RANDER, DESI CONRAD 790.29 HYPERGLYCEMIA 12/18/2012 MARC SHANK RANDER, AUDIE R 272.4 HYPERLIPIDEMIA 12/18/2012 MARC SHANK RANDER, AUDIE R 790.29 HYPERGLYCEMIA 12/18/2012 JIMMY SHANK RANDER, SHAHNAZ S 272.4 HYPERLIPIDEMIA 12/18/2012 JIMMY SHANK RANDER, SHAHNAZ S 790.29 HYPERGLYCEMIA 12/18/2012 JACQUIE SHANK RANDER, MAX T 272.4 HYPERLIPIDEMIA 12/18/2012 JACQUIE BURGOS, MAX T 790.29 HYPERGLYCEMIA 12/18/2012 JACQUIE SHANK RANDER, MAX T 272.4 HYPERLIPIDEMIA 12/18/2012 JACQUIE SHANK RANDER, MAX T 790.29 HYPERGLYCEMIA 12/18/2012 HAZEL DO, [...] SHARIF N 338.29 CHRONIC PAIN 06/05/2013 JOVANNI BURGSO DESI CONRAD 338.29 CHRONIC PAIN 06/05/2013 SHARIF [...] SHARIF JOHNSON MD 786.2 COUGH 11/09/2013 SHARIF JHONSON MD V65.42 COUNSELING - SMOKING CESSATION 11/09/2013 [...] V65.42 COUNSELING - SMOKING CESSATION 11/12/2013 JIMMY SHANK RANDER, SHAHNAZ S 486 PNEUMONIA UNSPECIFIED 11/12/2013 JACQUIE SHANK RANDER, MAX T 486 PNEUMONIA UNSPECIFIED 11/12/2013 JACQUIE SHANK RANDER, MAX T 486 PNEUMONIA UNSPECIFIED 11/12/2013 ILIR [...] CORONARY ATHEROSCLEROSIS OF UNSPECIFIED TYPE OF VESSEL [place] OR GRAFT 09/15/2014 SHARIF JOHNSON MD 782.2 LOCALIZED SUPERFICIAL SWELLING MASS OR LUMP 09/15/2014 MASSIEL VEGA M 414.00 CORONARY ATHEROSCLEROSIS OF UNSPECIFIED TYPE OF VESSEL [place] OR GRAFT 09/15/2014 MASSIEL VEGA M 782.2 LOCALIZED SUPERFICIAL SWELLING MASS OR LUMP 09/15/2014 HAZEL DO, MIKE K 414.00 CORONARY ATHEROSCLEROSIS OF UNSPECIFIED TYPE OF VESSEL [place] OR GRAFT 09/15/2014 HAZEL DO, MIKE K 782.2 LOCALIZED SUPERFICIAL SWELLING MASS OR LUMP 09/15/2014 SHARIF JOHNSON MD 414.00 CORONARY ATHEROSCLEROSIS OF UNSPECIFIED TYPE OF VESSEL [place] OR GRAFT 09/15/2014 SHARIF JOHNSON MD 782.2 LOCALIZED SUPERFICIAL SWELLING MASS OR LUMP 09/15/2014 SHANIQUE VEGA MD 414.00 CORONARY ATHEROSCLEROSIS OF UNSPECIFIED TYPE OF VESSEL [place] OR GRAFT 09/15/2014 SHANIQUE VEGA MD 782.2 LOCALIZED SUPERFICIAL SWELLING MASS OR LUMP 09/15/2014 SHARIF JOHNSON MD 414.00 CORONARY ATHEROSCLEROSIS OF UNSPECIFIED TYPE OF VESSEL [place] OR GRAFT 09/15/2014 SHARIF JOHNSON MD 782.2 LOCALIZED SUPERFICIAL SWELLING MASS OR LUMP 09/15/2014 SHARIF JOHNSON MD 414.00 CORONARY ATHEROSCLEROSIS OF UNSPECIFIED TYPE OF VESSEL [place] OR GRAFT 09/15/2014 SHARIF JOHNSON MD 782.2 LOCALIZED SUPERFICIAL SWELLING MASS OR LUMP 09/15/2014 SHANIQUE VEGA MD 414.00 CORONARY ATHEROSCLEROSIS OF UNSPECIFIED TYPE OF VESSEL [place] OR GRAFT 09/15/2014 SHANIQUE VEGA MD2.2 LOCALIZED [...] HAZEL DO, MIKE K Ot 781.2 11/02/2014 HAEZL DO, MIKE K Ot 969.4 11/02/2014 HAZEL [...] FACP CCDS Ot 440.20 12/28/2014 B[facility]NU ROLDAN [facility] Ot 440.4 12/28/2014 [facility]OLD[facility] Ot 441.4 12/28/2014 [facility]OLD[facility] CCD[facility] Ot 786.09 12/28/2014 BISHNU ROLDAN [facility], [facility] CCDS Ot V58.69 02/07/2015 SASHA ROLDAN, MYRNA [...] ROLDAN, MYRNA E Ot 300.00 02/08/2015 SASHA RODLAN, MYRNA E Ot 401.9 02/08/2015 SASHA ROLDAN, [...] MYRNA E Ot 788.43 02/12/2015 SASHA ROLDAN, YMRNA E Ot V15.82 02/12/2015 SASHA ROLDAN, MYRNA [...] DHILLON Ot 424.1 02/17/2015 MAX DHILLON [employer]ERCIAL PILOT Ot 785.2 02/17/2015 MAX DHILLON COMMERCIAL PILOT Ot 786.05 02/17/2015 ANDRE HERNANDEZ DO Elroy [...] MYRNA E Ot 721.90 02/21/2015 SASHA ROLDAN, MYNRA E Ot 733.00 02/21/2015 SASHA ROLDAN, MYRNA [...] ROLDAN, MYRNA E Ot 427.31 02/21/2015 SASHA ROLADN, MYRNA E Ot 496 02/21/2015 SASHA ROLDAN, [...] Ot 724.4 02/27/2015 MAX DHILLON Andre COMMERCIAL PILOT Ot 401.1 02/27/2015 JACQUIE MAX Andre COMMERCIAL PILOT Ot 424.1 02/27/2015 JACQUIEMAX COMMERCIAL PILOT Ot 785.2 02/27/2015 JACQUIE MAX Andre COMMERCIAL PILOT Ot 786.05 02/27/2015 MARYANDRE Garcia DO Ot [...] ELIZABETH ROLDAN, SHARIF N Ot 441.4 03/11/2015 ELZIABETH ROLDAN, SHARIF N Ot 442.9 03/11/2015 ELIZABETH [...] ROLDAN, SHARIF N Ot 272.4 03/12/2015 ELIZABETH RLODAN, SHARIF N Ot 275.2 03/12/2015 ELIZABETH ROLDAN, [...] ROLDAN, SHARIF N Ot 440.1 03/13/2015 ELIZABETH RLODAN, SHARIF N Ot 440.20 03/13/2015 ELIZABETH ROLDAN, [...] ROLDAN, SHARIF N Ot 414.00 03/14/2015 ELIZABETH RLODAN, SHARIF N Ot 428.0 03/14/2015 ELIZABETH ROLDAN, [...] SHARIF N Ot 715.90 03/15/2015 ELIZABETH ROLDAN, HSARIF N Ot 722.6 03/15/2015 ELIZABETH ROLDAN, SHARIF [...] MENDOZA MD Ot 724.4 12/07/2015 MAX DHILLON COMMERCIAL PILOT Ot 401.1 12/07/2015 MAX DHILLON COMMERCIAL PILOT Ot 424.1 12/07/2015 MAX DHILLON COMMERCIAL PILOT Ot 785.2 12/07/2015 MAX DHILLON Ot 786.05 12/07/2015 ANDRE HERNANDEZ DO Ot 715.91 12/07/2015 ANDRE HERNANDEZ DO Ot 727.61 12/07/2015 DIANNA MACAHDO MD Ot 278.00 12/07/2015 DIANNA MACHADO MD Ot 721.3 12/07/2015 DIANNA MACHADO MD Ot 724.6 12/07/2015 DIANNA MACHADO MD Ot 729.1 12/07/2015 DIANNA MACHADO MD Ot V58.69 12/07/2015 DIANNA MACHADO MD Ot V85.35 12/07/2015 DIANNA AMCHADO MD Ot 278.00 12/07/2015 DIANNA MACHADO MD [...] MD, Ot I25.10 ATHSCL HEART DISEASE OF [place] CORONARY 05/16/2016 PRUDENCE SHAW MD Ot I71.4 [...] INCONTINENCE 11/28/2016 LUL NORWOOD MD, Ot Z79.84 LONG-TERM (CURRENT) USE OF ORAL HYPOGLYC 11/29/2016 LUL NORWOOD MD Ot E11.9 TYPE 2 DIABETES MELLITUS WITHOUT COMPLIC 11/29/2016 LUL NORWOOD MD, Ot N32.81 OVERACTIVE BLADDER 11/29/2016 LUL NORWOOD MD, Ot 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 (ISD) 11/29/2016 LUL NORWOOD MD, Ot 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 11/29/2016 LUL NORWOOD MD, Ot Z79.84 UTILITY APPRAISER (CURRENT) USE OF ORAL HYPOGLYC 12/03/2016 LUL NORWOOD MD Ot E11.9 TYPE 2 DIABETES MELLITUS WITHOUT COMPLIC 12/03/2016 LUL NORWOOD MD, Ot N32.81 OVERACTIVE BLADDER 12/03/2016 LUL NORWOOD MD, Ot 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 (ISD) 12/03/2016 LUL NORWOOD MD, Ot 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 12/03/2016 LUL NORWOOD MD, Ot Z79.84 UTILITY APPRAISER (CURRENT) USE OF ORAL HYPOGLYC 02/07/2017 CUCO [...] CCDS Ot I25.10 ATHSCL HEART DISEASE OF [place] CORONARY 10/08/2017 BISHNU ROLDAN FACC, ALI FACP [...] CCDS Ot I25.10 ATHSCL HEART DISEASE OF [place] CORONARY 10/08/2017 CHELLE GOETZ MD, FACC FACP CCDS Ot I48.0 PAROXYSMAL ATRIAL FIBRILLATION 10/08/2017 BISHNU ROLDAN FACC, CHELLE FACP CCDS Ot I65.29 OCCLUSION AND STENOSIS OF UNSPECIFIED CA 10/15/2017 BISHNU ROLDAN FACC ALI FACP CCDS Ot I11.0 HYPERTENSIVE HEART DISEASE WITH HEART FA 10/15/2017 CHELLE GOETZ MD, FACC FACP CCDS Ot I25.10 ATHSCL HEART DISEASE OF [place] CORONARY 10/15/2017 CHELLE GOETZ MD, FACC FACP CCDS Ot I48.0 PAROXYSMAL ATRIAL FIBRILLATION 10/15/2017 CHELLE GOETZ MD, FACC [...] I71.4 ABDOMINAL AORTIC ANEURYSM, WITHOUT RUPTU 10/15/2017 BISHNU ROLDAN FACC ALI FACP CCDS Ot I73.9 PERIPHERAL VASCULAR DISEASE, UNSPECIFIED 10/15/2017 CHELLE GOETZ MD, FACC FACP CCDS Ot J44.9 CHRONIC OBSTRUCTIVE PULMONARY DISEASE, U 10/15/2017 CHELLE GOETZ MD, FACC FACP CCDS Ot Z79.899 OTHER LONG-TERM (CURRENT) DRUG THERAPY 10/15/2017 CHELLE GOETZ MD, FACC FACP CCDS Ot Z87.891 PERSONAL HISTORY OF NICOTINE DEPENDENCE 10/15/2017 BISHNU ROLDAN FACC ALI FACP CCDS Ot Z88.1 ALLERGY STATUS TO OTHER ANTIBIOTIC AGENT 10/15/2017 CHELLE GOETZ MD, FACC FACP CCDS Ot Z88.2 ALLERGY STATUS TO SULFONAMIDES STATUS 10/15/2017 CHELLE GOETZ MD, FACC FACP CCDS Ot Z88.8 ALLERGY STATUS TO OTH DRUG/MEDS/BIOL SUB 10/15/2017 BISHNU ROLDAN FACC, ALI FACP CCDS Ot Z91.19 PATIENT'S NONCOMPLIANCE W OT MEDICAL TR 10/15/2017 BISHNU ROLDAN FACC, CHELLE FACP CCDS Ot 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 BYPASS GRAFT 10/15/2017 BISHNU ROLDAN FACC, ALI FACP CCDS Ot Z96.641 PRESENCE OF RIGHT ARTIFICIAL HIP JOINT 10/26/2017 CHELLE GOETZ MD, FACC FACP CCDS Ot E78.4 OTHER HYPERLIPIDEMIA 10/26/2017 BISHNU ROLDAN FACC, ALI FACP CCDS Ot I10 ESSENTIAL (PRIMARY) HYPERTENSION 10/26/2017 BISHNU ROLDAN FACC, ALI FACP CCDS Ot I25.10 ATHSCL HEART DISEASE OF [place] CORONARY 10/26/2017 BISHNU ROLDAN FACC ALI FACP CCDS Ot I48.0 PAROXYSMAL ATRIAL FIBRILLATION 10/26/2017 CHELLE GOETZ MD, FACC FACP CCDS Ot I71.4 ABDOMINAL AORTIC ANEURYSM, WITHOUT RUPTU 10/29/2017 CHELLE GOETZ MD, FACC FACP CCDS Ot E78.4 OTHER HYPERLIPIDEMIA 10/29/2017 BISHNU ROLDAN FACC, ALI FACP CCDS Ot I10 ESSENTIAL (PRIMARY) HYPERTENSION 10/29/2017 BISHNU ROLDAN FACC, CHELLE FACP CCDS Ot I25.10 ATHSCL HEART DISEASE OF [place] CORONARY 10/29/2017 CHELLE GOETZ MD, FACC FACP CCDS Ot I48.0 PAROXYSMAL ATRIAL FIBRILLATION 10/29/2017 CHELLE GOETZ MD, FACC FACP CCDS Ot I71.4 ABDOMINAL AORTIC ANEURYSM, WITHOUT RUPTU 10/29/2017 BISHNU ROLDAN FACC, ALI FACP CCDS Ot E78.5 HYPERLIPIDEMIA, UNSPECIFIED 10/29/2017 BISHNU ROLDAN FACC, ALI FACP CCDS Ot I10 ESSENTIAL (PRIMARY) HYPERTENSION 10/29/2017 BISHNU ROLDAN FACC, ALI FACP CCDS Ot I25.10 ATHSCL HEART DISEASE OF [place] CORONARY 10/29/2017 BISHNU ROLDAN FACC, ALI FACP CCDS Ot I48.0 PAROXYSMAL ATRIAL FIBRILLATION 10/29/2017 BISHNU ROLDAN FACC, ALI FACP CCDS Ot I65.29 OCCLUSION AND STENOSIS OF UNSPECIFIED CA 10/29/2017 BISHNU MD FACC, ALI FACP CCDS Ot R06.02 SHORTNESS OF BREATH 10/29/2017 BISHNU ROLDAN FACC, ALI FACP CCDS Ot E78.5 HYPERLIPIDEMIA, UNSPECIFIED 10/29/2017 BISHNU HDEZC, ALI FACP CCDS Ot I10 ESSENTIAL (PRIMARY) HYPERTENSION 10/29/2017 BISHNU HDEZC, ALI FACP CCDS Ot I25.10 ATHSCL HEART DISEASE OF [place] CORONARY 10/29/2017 BISHNU HDEZC, ALI FACP CCDS Ot I48.0 PAROXYSMAL ATRIAL FIBRILLATION 10/29/2017 BISHNU HDEZC, ALI FACP CCDS Ot I65.29 OCCLUSION AND STENOSIS OF UNSPECIFIED CA 11/05/2017 BISHNU ROLDAN FACC, ALI FACP CCDS Ot E78.4 OTHER HYPERLIPIDEMIA 11/05/2017 BISHNU ROLDAN FACC, ALI FACP CCDS Ot I10 ESSENTIAL (PRIMARY) HYPERTENSION 11/05/2017 BISHNU HDEZC, ALI FACP CCDS Ot I25.10 ATHSCL HEART DISEASE OF [place] CORONARY 11/05/2017 BISHNU ROLDAN FACC, ALI FACP CCDS Ot I48.0 PAROXYSMAL ATRIAL FIBRILLATION 11/05/2017 BISHNU ROLDAN FACC, ALI FACP CCDS Ot I71.4 ABDOMINAL AORTIC ANEURYSM, WITHOUT RUPTU 11/07/2017 BISHNU ROLDAN FACC, ALI FACP CCDS Ot E78.4 OTHER HYPERLIPIDEMIA 11/07/2017 BISHNU ROLDAN FACC, ALI FACP CCDS Ot I10 ESSENTIAL (PRIMARY) HYPERTENSION 11/07/2017 BISHNU ROLDAN FACC, ALI FACP CCDS Ot I25.10 ATHSCL HEART DISEASE OF [place] CORONARY 11/07/2017 BISHNU ROLDAN FACC, ALI FACP CCDS Ot I48.0 PAROXYSMAL ATRIAL FIBRILLATION 11/07/2017 BISHNU ROLDAN FACC, ALI FACP CCDS Ot I71.4 ABDOMINAL AORTIC ANEURYSM, WITHOUT RUPTU 11/08/2017 BISHNU ROLDAN FACC, ALI FACP CCDS Ot E78.5 HYPERLIPIDEMIA, UNSPECIFIED 11/08/2017 BISHNU HDEZC, ALI FACP CCDS Ot I10 ESSENTIAL (PRIMARY) HYPERTENSION 11/08/2017 BISHNU ROLDAN FACC, ALI FACP CCDS Ot I25.10 ATHSCL HEART DISEASE OF [place] CORONARY 11/08/2017 BISHNU ROLDAN FACC, ALI FACP [...] CCDS Ot I25.10 ATHSCL HEART DISEASE OF [place] CORONARY 11/08/2017 BISHNU ROLDAN FACC, ALI FACP CCDS Ot I48.0 PAROXYSMAL ATRIAL FIBRILLATION 11/08/2017 BISHNU ROLDAN FACC, ALI FACP CCDS Ot I65.29 OCCLUSION AND STENOSIS OF UNSPECIFIED CA 11/15/2017 BSIHNU ROLDAN FACC, ALI FACP CCDS Ot E78.4 OTHER HYPERLIPIDEMIA 11/15/2017 BISHNU ROLDAN FACC, ALI FACP CCDS Ot I10 ESSENTIAL (PRIMARY) HYPERTENSION 11/15/2017 BISHNU ROLDAN FACC, ALI FACP CCDS Ot I25.10 ATHSCL HEART DISEASE OF [place] CORONARY 11/15/2017 BISHNU ROLDAN FACC, ALI FACP CCDS [...] R32 UNSPECIFIED URINARY INCONTINENCE 11/25/2017 LUL NORWOOD MD, Ot R33.9 RETENTION OF URINE, UNSPECIFIED 11/25/2017 LUL NORWOOD MD Ot Z01.818 ENCOUNTER FOR OTHER PREPROCEDURAL EXAMIN 11/25/2017 LUL NORWOOD MD Ot R32 UNSPECIFIED URINARY INCONTINENCE 11/25/2017 LUL NORWOOD MD Ot R33.9 RETENTION OF URINE, UNSPECIFIED 11/25/2017 LUL NORWOOD MD Ot Z01.818 ENCOUNTER FOR OTHER PREPROCEDURAL EXAMIN 11/26/2017 SATHISH ABAD [employer] PILOT Ot 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 11/26/2017 SATHISH ABAD [employer]ER[employer] PILOT Ot I70.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 11/26/2017 SATHISH ABAD [employer]ER[employer] PILOT Ot I71.4 ABDOMINAL AORTIC ANEURYSM, WITHOUT RUPTU 11/26/2017 SATHISH ABAD [employer]ER[employer] PILOT Ot K42.9 UMBILICAL HERNIA WITHOUT OBSTRUCTION OR 11/26/2017 SATHISH ABAD [employer]ER[employer] PILOT Ot K76.89 OTHER SPECIFIED DISEASES OF LIVER 11/26/2017 SATHISH ABAD [employer]ER[employer] PILOT Ot N28.1 CYST OF KIDNEY, ACQUIRED 11/26/2017 LUL NORWOOD MD Ot E11.9 TYPE 2 DIABETES MELLITUS WITHOUT COMPLIC 11/26/2017 LUL NORWOOD MD Ot E66.9 OBESITY, UNSPECIFIED 11/26/2017 LUL NORWOOD MD Ot E78.5 HYPERLIPIDEMIA, UNSPECIFIED 11/26/2017 LUL NORWOOD MD Ot F32.9 MAJOR DEPRESSIVE DISORDER, SINGLE EPISOD 11/26/2017 LUL NORWOOD MD Ot G89.18 OTHER ACUTE POSTPROCEDURAL PAIN 11/26/2017 LUL NORWOOD MD, Ot I10 ESSENTIAL (PRIMARY) HYPERTENSION 11/26/2017 LUL NORWOOD MD, Ot I25.10 ATHSCL HEART DISEASE OF [place] CORONARY 11/26/2017 LUL NORWOOD MD, Ot J44.9 CHRONIC OBSTRUCTIVE PULMONARY DISEASE, U 11/26/2017 LUL NORWOOD MD, Ot N31.9 NEUROMUSCULAR DYSFUNCTION OF BLADDER, UN 11/26/2017 LUL NORWOOD MD, Ot N39.3 STRESS INCONTINENCE (FEMALE) (MALE) 11/26/2017 LUL NOROWOD MD, Ot R10.84 GENERALIZED ABDOMINAL PAIN 11/26/2017 LUL NORWOOD MD, Ot R33.9 RETENTION OF URINE, UNSPECIFIED 11/26/2017 LUL NORWOOD MD, Ot Z68.31 BODY MASS INDEX (BMI) 31.0-31.9, ADULT 11/26/2017 LUL NORWOOD MD, Ot Z79.01 UTILITY APPRAISER (CURRENT) USE OF ANTICOAGULANT 11/26/2017 LUL NORWOOD MD, Ot Z79.82 LONG-TERM (CURRENT) USE OF ASPIRIN 11/26/2017 LUL NORWOOD MD, Ot Z79.899 OTHER LONG-TERM (CURRENT) DRUG THERAPY 11/26/2017 LUL NORWOOD MD, Ot Z87.891 PERSONAL HISTORY OF NICOTINE DEPENDENCE 11/27/2017 PRUDENCE SHAW MD, Ot E03.9 HYPOTHYROIDISM, UNSPECIFIED 11/27/2017 PRUDENCE SHAW MD Ot E11.9 TYPE 2 DIABETES MELLITUS WITHOUT COMPLIC 11/27/2017 PRUDENCE SHAW MD Ot E78.00 PURE HYPERCHOLESTEROLEMIA, UNSPECIFIED 11/27/2017 PRUDENCE SHAW MD Ot E86.0 DEHYDRATION 11/27/2017 PRUDENCE SHAW MD, Ot F32.9 MAJOR DEPRESSIVE DISORDER, SINGLE EPISOD 11/27/2017 PRUDENCE SHAW MD, Ot F41.9 ANXIETY DISORDER, UNSPECIFIED 11/27/2017 PRUDENCE SHAW MD Ot G89.18 OTHER ACUTE POSTPROCEDURAL PAIN 11/27/2017 PRUDENCE SHAW MD, Ot I10 ESSENTIAL (PRIMARY) HYPERTENSION 11/27/2017 VALERIA MD, PRUDENCE A Ot I11.0 HYPERTENSIVE HEART DISEASE WITH HEART FA 11/27/2017 PRUDENCE SHAW MD, Ot I25.10 ATHSCL HEART DISEASE OF [place] CORONARY 11/27/2017 PRUDENCE SHAW MD, Ot I48.0 [...] OTHER CONSTIPATION 11/27/2017 PRUDENCE SHAW MD, Ot N31.9 NEUROMUSCULAR DYSFUNCTION OF BLADDER, UN 11/27/2017 PRUDENCE SHAW MD, Ot N39.0 URINARY TRACT INFECTION, SITE NOT SPECIF 11/27/2017 PRUDENCE SHAW MD, Ot N39.3 STRESS INCONTINENCE (FEMALE) (MALE) 11/27/2017 PRUDENCE SHAW MD Ot R10.84 GENERALIZED ABDOMINAL PAIN 11/27/2017 PRUDENCE SHAW MD, Ot R33.9 RETENTION OF URINE, UNSPECIFIED 11/27/2017 PRUDENCE SHAW MD, Ot T83.510A I/I REACT D/T CYSTOSTOMY CATHETER, INITI 11/27/2017 PRUDENCE SHAW MD, Ot Z79.01 UTILITY APPRAISER (CURRENT) USE OF ANTICOAGULANT 11/27/2017 PRUDENCE SHAW MD Ot Z79.82 LONG-TERM (CURRENT) USE OF ASPIRIN 11/27/2017 PRUDENCE SHAW MD, Ot Z79.84 LONG-TERM (CURRENT) USE OF ORAL HYPOGLYC 11/27/2017 PRUDENCE SHAW MD, Ot 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 11/27/2017 PRUDENCE SHAW MD, Ot Z87.891 PERSONAL HISTORY OF NICOTINE DEPENDENCE 11/27/2017 PRUDENCE SHAW MD Ot 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 BYPASS GRAFT 11/27/2017 PRUDENCE SHAW MD, Ot Z96.641 PRESENCE OF RIGHT ARTIFICIAL HIP JOINT 12/03/2017 SATHISH ABAD [employer]ER[employer] PILOT Ot 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 12/03/2017 BAIMASATHISH L COMMERCIAL PILOT Ot 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 12/03/2017 SATHISH ABAD L COMMERCIAL PILOT Ot I71.4 ABDOMINAL AORTIC ANEURYSM, WITHOUT RUPTU 12/03/2017 BAIMASATHISH L COMMERCIAL PILOT Ot I77.2 RUPTURE OF ARTERY 12/03/2017 BAIMASATHISH L COMMERCIAL PILOT Ot J43.9 EMPHYSEMA, UNSPECIFIED 12/03/2017 BAIMASATHISH L COMMERCIAL PILOT Ot 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 12/08/2017 BAIMASATHISH L COMMERCIAL PILOT Ot 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 12/08/2017 KEVONMASATHISH L COMMERCIAL PILOT Ot 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 12/08/2017 BAISATHISH HOUSE L COMMERCIAL PILOT Ot I71.4 ABDOMINAL AORTIC ANEURYSM, WITHOUT RUPTU 12/08/2017 BAIMASATHISH L COMMERCIAL PILOT Ot I77.2 RUPTURE OF ARTERY 12/08/2017 BAIMASATH[employer] PILOT Ot J43.9 EMPHYSEMA, UNSPECIFIED 12/08/2017 BAIMAGREYSONSATHISH L [employer]ERCIAL PILOT Ot 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9 TYPE 2 DIABETES MELLITUS WITHOUT COMPLIC 2017 JESSICA JENKINS MD Ot E78.00 PURE HYPERCHOLESTEROLEMIA, UNSPECIFIED 2017 JESSICA JENKINS MD Ot F32.9 MAJOR DEPRESSIVE DISORDER, SINGLE EPISOD 2017 JESSICA JENKINS MD Ot F41.9 ANXIETY DISORDER, UNSPECIFIED 2017 JESSICA JENKINS MD Ot I10 ESSENTIAL (PRIMARY) HYPERTENSION 2017 JESSICA JENKINS MD Ot I25.10 ATHSCL HEART DISEASE OF [place] CORONARY 2017 JESSICA JENKINS MD Ot J44.9 CHRONIC OBSTRUCTIVE PULMONARY DISEASE, U 2017 JESSICA JENKINS MD Ot N39.0 URINARY TRACT INFECTION, SITE NOT SPECIF 2017 JESSICA JENKINS MD Ot R55 SYNCOPE AND COLLAPSE 2017 JESSICA JENKINS MD, Ot T83.511A I/I REACT D/T INDWELLING URETHRAL CATHET 2017 JESSICA JENKINS MD Ot W01.0XXA FALL SAME LEV FROM SLIP/TRIP W/O STRIKE 2017 JESSICA JENKINS MD Ot Z79.01 UTILITY APPRAISER (CURRENT) USE OF ANTICOAGULANT 2017 JESSICA JENKINS MD Ot Z79.02 LONG-TERM (CURRENT) USE OF ANTITHROMBOTI 2017 JESSICA JENKINS MD Ot Z79.82 LONG-TERM (CURRENT) USE OF ASPIRIN 2017 JESSICA JENKINS MD, Ot Z79.84 LONG-TERM (CURRENT) USE OF ORAL HYPOGLYC 2017 JESSICA JENKINS MD Ot Z80.0 FAMILY HISTORY OF MALIGNANT NEOPLASM OF 2017 JESSICA JENKINS MD Ot Z80.1 FAMILY HISTORY OF MALIG NEOPLASM OF TRAC 2017 JESSICA JENKINS MD Ot Z82.49 FAMILY HX OF ISCHEM HEART DIS AND OTH DI 2017 JESSICA JENKINS MD Ot Z87.01 PERSONAL HISTORY OF PNEUMONIA (RECURRENT 2017 JESSICA JENKINS MD Ot Z87.19 PERSONAL HISTORY OF OTHER DISEASES OF TH 2017 JESSICA JENKINS MD Ot Z87.891 PERSONAL HISTORY OF NICOTINE DEPENDENCE 2017 JESSICA JENKINS MD Ot Z90.710 ACQUIRED ABSENCE OF BOTH CERVIX AND UTER 2017 JESSICA JENKINS MD Ot Z90.89 ACQUIRED ABSENCE OF OTHER ORGANS 2017 JESSICA JENKINS MD Ot 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 BYPASS GRAFT 2017 JESSICA JENKINS MD Ot Z96.0 PRESENCE OF UROGENITAL IMPLANTS 12/17/2017 JESSICA JENKINS MD Ot E11.9 TYPE 2 DIABETES MELLITUS WITHOUT COMPLIC 12/17/2017 JESSICA JENKINS MD Ot E78.00 PURE HYPERCHOLESTEROLEMIA, UNSPECIFIED 12/17/2017 JESSICA JENKINS MD Ot F32.9 MAJOR DEPRESSIVE DISORDER, SINGLE EPISOD 12/17/2017 JESSICA JENKINS MD Ot F41.9 ANXIETY DISORDER, UNSPECIFIED 12/17/2017 JESSICA JENKINS MD Ot I10 ESSENTIAL (PRIMARY) HYPERTENSION 12/17/2017 JESSICA JENKINS MD, Ot I25.10 ATHSCL HEART DISEASE OF [place] CORONARY 12/17/2017 JESSICA JENKINS MD, Ot J44.9 CHRONIC OBSTRUCTIVE PULMONARY DISEASE, U 12/17/2017 JESSICA JENKINS MD, Ot N39.0 URINARY TRACT INFECTION, SITE NOT SPECIF 12/17/2017 JESSICA JENKINS MD, Ot R55 SYNCOPE AND COLLAPSE 12/17/2017 JESSICA JENKINS MD, Ot T83.511A I/I REACT D/T INDWELLING URETHRAL CATHET 12/17/2017 JESSICA JENKINS MD, Ot W01.0XXA FALL SAME LEV FROM SLIP/TRIP W/O STRIKE 12/17/2017 JESSICA JENKINS MD Ot Z79.01 UTILITY APPRAISER (CURRENT) USE OF ANTICOAGULANT 12/17/2017 JESSICA JENKINS MD Ot Z79.02 LONG-TERM (CURRENT) USE OF ANTITHROMBOTI 12/17/2017 JESSICA JENKINS MD, Ot Z79.82 UTILITY APPRAISER (CURRENT) USE OF ASPIRIN 12/17/2017 JESSICA JENKINS MD, Ot Z79.84 LONG-TERM (CURRENT) USE OF ORAL HYPOGLYC 12/17/2017 JESSICA JENKINS MD, Ot Z80.0 FAMILY HISTORY OF MALIGNANT NEOPLASM OF 12/17/2017 JESSICA JENKINS MD Ot Z80.1 FAMILY HISTORY OF MALIG NEOPLASM OF [place] 12/17/2017 JESSICA JENKINS MD Ot Z82.49 FAMILY HX OF ISCHEM HEART DIS AND OTH DI 12/17/2017 JESSICA JENKINS MD, Ot Z87.01 PERSONAL HISTORY OF PNEUMONIA (RECURRENT 12/17/2017 JESSICA JENKINS MD Ot Z87.19 PERSONAL HISTORY OF OTHER DISEASES OF TH 12/17/2017 JESSICA JENKINS MD, Ot Z87.891 PERSONAL HISTORY OF NICOTINE DEPENDENCE 12/17/2017 JESSICA JENKINS MD Ot Z90.710 ACQUIRED ABSENCE OF BOTH CERVIX AND UTER 12/17/2017 JESSICA JENKINS MD Ot Z90.89 ACQUIRED ABSENCE OF OTHER ORGANS 12/17/2017 JESSICA JENKINS MD Ot 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 BYPASS GRAFT 12/17/2017 JESSICA JENKINS MD Ot Z96.0 PRESENCE OF UROGENITAL IMPLANTS 12/23/2017 SATHISH ABAD [employer] PILOT Ot 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 12/23/2017 SATHISH ABAD [employer] PILOT Ot I70.201 [facility] [place] [facility] SATHISH ABAD L COMMERCIAL PILOT Ot I71.4 ABDOMINAL AORTIC ANEURYSM, WITHOUT RUPTU 12/23/2017 [employer] P[employer] Ot K42.9 UMBILICAL HERNIA WITHOUT OBSTRUCTION OR 12/23/2017 BAIGREYSON HOUSEHER L COMMERCIAL PILOT Ot K76.89 OTHER SPECIFIED DISEASES OF [place] 12/23/2017 JENNIFFER SATHISH L COMMERCIAL PILOT Ot N28.1 CYST OF KIDNEY, ACQUIRED 12/24/2017 MARCIA LUI MD Ot 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 12/24/2017 MARCIA LUI MD Ot Z01.810 ENCOUNTER FOR PREPROCEDURAL CARDIOVASCUL 12/24/2017 MARCIA LUI MD Ot Z01.811 ENCOUNTER FOR PREPROCEDURAL RESPIRATORY 12/24/2017 MARCIA LUI MD Ot Z01.812 ENCOUNTER FOR PREPROCEDURAL LABORATORY E 12/24/2017 JENNIFFER SATHISH L COMMERCIAL PILOT Ot 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 12/24/2017 KEVONLACY SATHISH L COMMERCIAL PILOT Ot 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[place] [facility] 12/24/2017 KEVONSATHISH HOUSE L COMMERCIAL PILOT Ot I71.4 ABDOMINAL AORTIC ANEURYSM, WITHOUT RUPTU 12/24/2017 KEVONLACY SATHISH L COMMERCIAL PILOT Ot I77.2 RUPTURE OF ARTERY 12/24/2017 KEVONLACY SATHISH L COMMERCIAL PILOT Ot J43.9 EMPHYSEMA, UNSPECIFIED 12/24/2017 KEVONSATHISH HOUSE L COMMERCIAL PILOT Ot 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 01/07/2018 KEVONLACY SATHISH L COMMERCIAL PILOT Ot 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 01/07/2018 SATHISH ABAD L COMMERCIAL PILOT Ot I70.201 UNSP ATHSCL [place] [facility] 01/07/2018 KEVONSATHISH HOUSE L COMMERCIAL PILOT Ot I71.4 ABDOMINAL AORTIC ANEURYSM, WITHOUT RUPTU 01/07/2018 KEVONLACY SATHISH L COMMERCIAL PILOT Ot K42.9 UMBILICAL HERNIA WITHOUT OBSTRUCTION OR 01/07/2018 SATHISH ABAD COMMERCIAL PILOT Ot K76.89 OTHER SPECIFIED DISEASES OF LIVER 01/07/2018 SATHISH ABAD COMMERCIAL PILOT Ot N28.1 CYST OF KIDNEY, ACQUIRED 01/08/2018 SATHISH ABAD COMMERCIAL PILOT Ot 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 01/08/2018 SATHISH ABAD COMMERCIAL PILOT Ot 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 01/08/2018 SATHISH ABAD COMMERCIAL PILOT Ot I71.4 ABDOMINAL AORTIC ANEURYSM, WITHOUT RUPTU 01/08/2018 SATHISH ABAD COMMERCIAL PILOT Ot I77.2 RUPTURE OF ARTERY 01/08/2018 SATHISH ABAD COMMERCIAL PILOT Ot J43.9 EMPHYSEMA, UNSPECIFIED 01/08/2018 SATHISH ABAD COMMERCIAL PILOT Ot 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 01/16/2018 MARCIA LUI MD Ot 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 01/16/2018 MRACIA LUI MD F Ot Z01.810 ENCOUNTER FOR PREPROCEDURAL CARDIOVASCUL 01/16/2018 MARCIA LUI MD Ot Z01.811 ENCOUNTER FOR PREPROCEDURAL RESPIRATORY 01/16/2018 MARCIA LUI MD Ot Z01.812 ENCOUNTER FOR PREPROCEDURAL LABORATORY E 01/24/2018 MARCIA LUI MD Ot 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 01/24/2018 MARCIA LUI MD F Ot Z01.810 ENCOUNTER FOR PREPROCEDURAL CARDIOVASCUL 01/24/2018 MARCIA LUI MD F Ot Z01.811 ENCOUNTER FOR PREPROCEDURAL RESPIRATORY 01/24/2018 MARCIA LUI MD F Ot Z01.812 ENCOUNTER FOR PREPROCEDURAL LABORATORY E 01/28/2018 BISHNU ROLDAN FACC, CHELLE FACP CCDS Ot E78.4 OTHER HYPERLIPIDEMIA 01/28/2018 BISHNU ROLDAN FACC, CHELLE FACP CCDS Ot I11.0 HYPERTENSIVE HEART DISEASE WITH HEART FA 01/28/2018 BISHNU ROLDAN FACC, CHELLE FACP CCDS Ot I25.10 ATHSCL HEART DISEASE OF [place] CORONARY 01/28/2018 BISHNU MD FACC, ALI FACP CCDS Ot I48.0 PAROXYSMAL ATRIAL FIBRILLATION 01/28/2018 BISHNU ROLDAN FACC, ALI FACP CCDS Ot I48.92 UNSPECIFIED ATRIAL FLUTTER 01/28/2018 BISHNU ROLDAN FACC, ALI FACP CCDS Ot I50.33 ACUTE ON CHRONIC DIASTOLIC (CONGESTIVE) 01/28/2018 BISHNU ROLDAN FACC, CHELLE FACP CCDS Ot 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 01/28/2018 BISHNU ROLDAN FACC, CHELLE FACP CCDS Ot I70.1 ATHEROSCLEROSIS OF RENAL ARTERY 01/28/2018 BISHNU ROLDAN FACC, ALI FACP CCDS Ot I71.4 ABDOMINAL AORTIC ANEURYSM, WITHOUT RUPTU 01/28/2018 BISHNU ROLDNA FACC, CHELLE FACP CCDS Ot I73.9 PERIPHERAL VASCULAR DISEASE, UNSPECIFIED 01/28/2018 BISHNU ROLDAN FACC, CHELLE FACP CCDS Ot J44.9 CHRONIC OBSTRUCTIVE PULMONARY DISEASE, U 01/28/2018 BISHNU ROLDAN FACC, ALI FACP CCDS Ot 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 01/28/2018 BISHNU ROLDAN FACC, CHELLE FACP CCDS Ot Z87.891 PERSONAL HISTORY OF NICOTINE DEPENDENCE 01/28/2018 BISHNU ROLDAN FACC, ALI FACP CCDS Ot Z88.1 ALLERGY STATUS TO OTHER ANTIBIOTIC AGENT 01/28/2018 BISHNU ROLDAN FACC, CHELLE FACP CCDS Ot Z88.2 ALLERGY STATUS TO SULFONAMIDES STATUS 01/28/2018 BISHNU ROLDAN FACC, CHELLE FACP CCDS Ot Z88.8 ALLERGY STATUS TO [facility] DRUG/MEDS/BIOL SUB 01/28/2018 BISHNU ROLDAN FACC, CHELLE FACP CCDS Ot Z91.19 PATIENT'S NONCOMPLIANCE W OT MEDICAL TR 01/28/2018 CHELLE GOETZ MD, FACC FACP CCDS Ot 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 BYPASS GRAFT 01/28/2018 CHELLE GOETZ MD, FACC FACP CCDS Ot Z96.641 PRESENCE OF RIGHT ARTIFICIAL HIP JOINT 02/12/2018 MARCIA LUI MD Ot 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 02/12/2018 MARCIA LUI MD Ot Z01.810 ENCOUNTER FOR PREPROCEDURAL CARDIOVASCUL 02/12/2018 MARCIA LUI MD Ot Z01.811 ENCOUNTER FOR PREPROCEDURAL RESPIRATORY 02/17/2018 SHANIQUE VEGA MD Ot R82.90 UNSPECIFIED ABNORMAL FINDINGS IN URINE 03/07/2018 MARCIA LUI MD Ot 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 03/07/2018 MARCIA LUI MD Ot Z01.810 ENCOUNTER FOR PREPROCEDURAL CARDIOVASCUL 03/07/2018 MARCIA LUI MD Ot Z01.811 ENCOUNTER FOR PREPROCEDURAL RESPIRATORY 03/11/2018 BISHNU ROLDAN FACC, CHELLE FACP CCDS Ot E78.5 HYPERLIPIDEMIA, UNSPECIFIED 03/11/2018 BISHNU ROLDAN FACC, ALI FACP CCDS Ot I25.10 ATHSCL HEART DISEASE OF [place] CORONARY 03/11/2018 BISHNU ROLDAN FACC, ALI FACP CCDS Ot I48.0 PAROXYSMAL ATRIAL FIBRILLATION 03/11/2018 BISHNU ROLDAN FACC, ALI FACP CCDS Ot I71.4 ABDOMINAL AORTIC ANEURYSM, WITHOUT RUPTU 03/11/2018 BISHNU ROLDAN FACC, ALI FACP CCDS Ot R06.02 SHORTNESS OF BREATH 03/11/2018 BISHNU ROLDAN FACC, ALI FACP CCDS Ot R53.1 WEAKNESS 03/13/2018 SHANIQUE VEGA MD Ot R82.90 UNSPECIFIED ABNORMAL FINDINGS IN URINE 03/20/2018 SHANIQUE EVGA MD Ot R82.90 UNSPECIFIED ABNORMAL FINDINGS IN URINE 03/21/2018 MARCIA LUI MD Ot 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 03/21/2018 MARCIA LUI MD Ot Z01.810 ENCOUNTER FOR PREPROCEDURAL CARDIOVASCUL 03/21/2018 MARCIA LUI MD Ot Z01.811 ENCOUNTER FOR PREPROCEDURAL RESPIRATORY 03/25/2018 BISHNU ROLDAN FACC, CHELLE FACP CCDS Ot E78.5 HYPERLIPIDEMIA, UNSPECIFIED 03/25/2018 BISHNU ROLDAN FACC, ALI FACP CCDS Ot I25.10 ATHSCL HEART DISEASE OF [place] CORONARY 03/25/2018 BISHNU ROLDAN FACC, ALI FACP CCDS Ot I48.0 PAROXYSMAL ATRIAL FIBRILLATION 03/25/2018 BISHNU ROLDAN FACC, ALI FACP CCDS Ot I71.4 ABDOMINAL AORTIC ANEURYSM, WITHOUT RUPTU 03/25/2018 BISHNU ROLDAN FACC, ALI FACP CCDS Ot R06.02 SHORTNESS OF BREATH 03/25/2018 CHELLE GOETZ MD, FACC [facility] CCDS Ot R53.1 WEAKNESS Procedures Code [place] [address] INDIV PSYTX 45/50 MIN 10/22/2012 09756 ROUTINE VENIPUNCTURE 10/24/2012 90586 BMP 10/24/2012 63118 MAGNESIUM 10/24/2012 [id number] GFR CALC (RESULT ONLY) 10/24/2012 2000F BLOOD PRESSURE CHECK 11/14/2012 53350 ROUTINE VENIPUNCTURE 01/15/2013 79753 BMP 01/15/2013 6417545 GFR CALC (RESULT ONLY) 01/15/2013 81502 LIPID PANEL 01/15/2013 42994 ROUTINE VENIPUNCTURE 05/06/2013 88895 A1C (IN-HOUSE) 05/06/2013 30085 CMP 05/06/2013 86651 MAGNESIUM 05/06/2013 6555753 GFR CALC (RESULT ONLY) 05/06/2013 14972 CPK 05/06/2013 82090 PSYTX PT&/FAMILY 45 MINUTES 05/14/2013 76426 OXIMETRY 07/01/2013 J7613 ALBUTEROL UNIT DOSE FORM INHALED 07/01/2013 J2930 SOLUMEDROL INJ 07/02/2013 43308 THERAPUTIC INJ SQ/IM 07/02/2013 91302 OXIMETRY 07/02/2013 2000F BLOOD PRESSURE CHECK 07/02/2013 G0008 FLU ADMINISTRATION ( MEDICARE ONLY) 08/06/2013 44167 OXIMETRY 08/13/2013 98183 ROUTINE VENIPUNCTURE 08/31/2013 85167 GLUCOSE 08/31/2013 38051 LIPID PANEL 08/31/2013 93955 A1C (IN-HOUSE) 09/08/2013 15352 XRAY CHEST 2 VIEW 11/12/2013 73717 MEASURE BLOOD OXYGEN LEVEL 11/12/2013 12067 THERAPUTIC INJ SQ/IM 12/11/2013 J2930 SOLUMEDROL INJ 12/11/2013 84821 A1C (IN-HOUSE) 12/11/2013 38491 ROUTINE VENIPUNCTURE 12/15/2013 50094 EKG, TRACING (IN-HOUSE) 12/15/2013 25758 XRAY CHEST 2 VIEW 12/15/2013 80156 ECHO 2D 12/15/2013 78441 OXIMETRY 12/15/2013 08208 CBC 12/15/2013 3664233 GFR CALC (RESULT ONLY) 12/15/2013 63327 CMP 12/15/2013 71864 MAGNESIUM 12/15/2013 94755 BNP 12/16/2013 92067 ROUTINE VENIPUNCTURE 01/13/2014 10585 OXIMETRY 01/13/2014 3573622 GFR CALC (RESULT ONLY) 01/14/2014 99943 CMP 01/14/2014 57755 MAGNESIUM 01/14/2014 17749 OXIMETRY 01/28/2014 07626 ROUTINE VENIPUNCTURE 03/24/2014 88964 LIPID PANEL 03/24/2014 77689 ROUTINE VENIPUNCTURE 07/02/2014 9260942 GFR CALC (RESULT ONLY) 07/02/2014 83544 CMP 07/02/2014 04803 LIPID PANEL 07/02/2014 37171 [employer] 08/17/2014 79371 US SOFT TISSUE (SPECIFY LOCATION) 09/15/2014 CARDIOLOG CHELLE GOETZ 09/15/2014 G0008 FLU ADMINISTRATION ( MEDICARE ONLY) 09/15/2014 PULMONARY WILL CASPER 09/15/2014 01384 US ABDOMINAL ULTRASOUND, COMPLETE 11/26/2014 32884 LEFT HEART CATH 01/25/2015 57751 US CAROTID DOPPLER 01/25/2015 86304 OXIMETRY 01/25/[address] ANGIO, EXTREMITY, LOWER 02/08/2015 Results Test [...] - 07:30 MRSA SCREEN RESULT MRSA ISOLATED NRG Capillary [...] FOR INFLUENZA A AND B ANTIGENS BY TN NR Complete blood count (CBC) with automated [...] Blood erythrocyte morphology finding identification NORMAL NRG Capillary blood glucose measurement by glucometer [...] protein measurement (mass/volume) 2.06 mg /dL 0.00-0.50 Bacterial blood culture - 12/14/17 20:40 Bacterial blood culture NG NRG Complete urinalysis [...] culture YES NRG Bacterial urine culture - 12/14/17 20:50 Bacterial urine culture [id number] NRG COLONY COUNT <10,000 NRG MRSA AGAR MRSA isolated (Screening test for MRSA is positive) NRG FTX;REPORTABLE SENSITIVITY REPORTED 12/16 16:30 NRG CALL POSITIVES (F1 HELP) CALLED TO TUCKER/NURSE AT 1453, 12-16-17/KD NRG Bacterial susceptibility panel - 12/14/17 20:50 Oxacillin susceptibility test by minimum inhibitory concentration > = NRG Gentamicin susceptibility test by minimum inhibitory concentration < = NRG Trimethoprim/sulfamethoxazole susceptibility test by minimum inhibitoryconcentration S NRG Vancomycin susceptibility test by minimum inhibitory concentration < = NRG Levofloxacin susceptibility test by minimum inhibitory concentration 4 NRG Rifampin susceptibility test by minimum inhibitory concentration <= NRG Tetracycline susceptibility test by minimum inhibitory concentration <= NRG Ciprofloxacin susceptibility test by minimum inhibitory concentration R NRG Bacterial blood culture - 12/14/17 21:09 Bacterial blood culture NG NRG Automated blood complete blood count (hemogram) panel - 12/23/17 10:46 Blood leukocytes automated count (number/volume) 10.3 10*3/uL 4.3-11.0 Blood erythrocytes automated count (number/volume) 4.15 10*6/uL 4.35-5.85 Venous blood hemoglobin measurement (mass/volume) 12.2 g/dL 11.5-16.0 Blood hematocrit (volume fraction) 38 % 35-52 Automated erythrocyte mean corpuscular volume 90 [foz_us] 80-99 Automated erythrocyte mean corpuscular hemoglobin (mass per erythrocyte) 29 pg 25-34 Automated erythrocyte mean corpuscular hemoglobin concentration measurement ( mass/volume) 33 g/dL 32-36 Automated erythrocyte distribution width ratio 14.4 % 10.0-14.5 Automated blood platelet count (count/volume) 306 10*3/uL 130-400 Automated blood platelet mean volume measurement 9.7 [foz_us] 7.4-10.4 Comprehensive metabolic panel - 12/23/17 10:46 Serum or plasma sodium measurement (moles/volume) 136 mmol/L 135-145 Serum or plasma potassium measurement (moles/volume) 3.9 mmol/L 3.6-5.0 Serum or plasma chloride measurement (moles/volume) 99 mmol/L 98-107 Carbon dioxide 26 mmol/L 21-32 Serum or plasma anion gap determination (moles/volume) 11 mmol/L 5-14 Serum or plasma urea nitrogen measurement (mass/volume) 15 mg/dL 7-18 Serum or plasma creatinine measurement (mass/volume) 0.78 mg/dL 0.60-1.30 Serum or plasma urea nitrogen/creatinine mass ratio 19 NRG Serum or plasma creatinine measurement with calculation of estimated glomerular filtration rate > NRG Serum or plasma glucose measurement (mass/volume) 184 mg/dL 70-105 Serum or plasma calcium measurement (mass/volume) 9.2 mg/dL 8.5-10.1 Serum or plasma total bilirubin measurement (mass/volume) 0.4 mg/dL 0.1-1.0 Serum or plasma alkaline phosphatase measurement (enzymatic activity/volume) 78 U/L 40-136 Serum or plasma aspartate aminotransferase measurement (enzymatic activity/ volume) 19 U/L 5-34 Serum or plasma alanine aminotransferase measurement (enzymatic activity/volume ) 17 U/L 0-55 Serum or plasma protein measurement (mass/volume) 7.1 g/dL 6.4-8.2 Serum or plasma albumin measurement (mass/volume) 3.4 g/dL 3.2-4.5 Complete urinalysis with reflex to culture - 02/16/18 09:30 Urine color determination YELLOW NRG Urine clarity determination CLEAR NRG Urine pH measurement by test strip 6.5 5-9 Specific gravity of urine by test strip 1.015 1.016- 1.022 Urine protein assay by test strip, semi-quantitative 1+ NEGATIVE Urine glucose detection by automated test strip NEGATIVE NEGATIVE Erythrocytes detection in urine sediment by light microscopy 1+ NEGATIVE Urine ketones detection by automated test strip NEGATIVE NEGATIVE Urine nitrite detection by test strip NEGATIVE NEGATIVE Urine total bilirubin detection by test strip NEGATIVE NEGATIVE Urine urobilinogen measurement by automated test strip (mass/volume) NORMAL NORMAL Urine leukocyte esterase detection by dipstick 3+ NEGATIVE Automated urine sediment erythrocyte count by microscopy (number/high power field) NONE NRG Automated urine sediment leukocyte count by microscopy (number/high power field ) [HPF] NRG Bacteria detection in urine sediment by light microscopy FEW NRG Squamous epithelial cells detection in urine sediment by light microscopy RARE NRG Crystals detection in urine sediment by light microscopy NONE NRG Casts detection in urine sediment by light microscopy PRESENT NRG Mucus detection in urine sediment by light microscopy NEGATIVE NRG Complete urinalysis with reflex to culture YES NRG Amorphous sediment detection in urine sediment by light microscopy RARE VI URATES NRG Hyaline casts detection in urine sediment by light microscopy RARE NRG Granular casts detection in urine sediment by light microscopy 2-5 NRG Bacterial urine culture - 02/16/18 09:30 Bacterial urine culture [id number] NRG COLONY COUNT 10,000/ML - 100,000/ML NRG FTX;REPORTABLE SENSITIVITY REPORTED 02/18 16:30 NR Bacterial susceptibility panel - 02/16/18 09:30 Gentamicin susceptibility test by minimum inhibitory concentration R NRG Vancomycin susceptibility test by minimum inhibitory concentration 1 NRG Levofloxacin susceptibility test by minimum inhibitory concentration >= NRG Tetracycline susceptibility test by minimum inhibitory concentration >= NRG Ampicillin susceptibility test by minimum inhibitory concentration < = NRG Ciprofloxacin susceptibility test by minimum inhibitory concentration R NRG Nitrofurantoin susceptibility test by minimum inhibitory concentration <= NRG Linezolid susceptibility test by minimum inhibitory concentration 2 NR Bacterial susceptibility panel - 02/16/18 09:30 Oxacillin susceptibility test by minimum inhibitory concentration > = NRG Gentamicin susceptibility test by minimum inhibitory concentration < = NRG Trimethoprim/sulfamethoxazole susceptibility test by minimum inhibitoryconcentration S NRG Vancomycin susceptibility test by minimum inhibitory concentration < = NRG Levofloxacin susceptibility test by minimum inhibitory concentration 4 NRG Rifampin susceptibility test by minimum inhibitory concentration <= NRG Tetracycline susceptibility test by minimum inhibitory concentration <= NRG Ciprofloxacin susceptibility test by minimum inhibitory concentration R NRG Encounters ACCT No. Visit Date/Time Discharge Status Pt. Type Provider Facility Loc./Unit Complaint [id number] 03/18/2015 16:54:00 03/18/2015 23:59:59 CLS Outpatient SHANIQUE VEGA MD [id number] 01/25/2015 09:06:00 01/25/2015 23:59:59 CLS Outpatient SHARIF JOHNSON MD [id number] 12/06/2014 05:51:00 12/06/2014 23:59:59 CLS Outpatient SHANIQUE VEGA MD [id number] 11/26/2014 15:23:00 11/26/2014 23:59:59 CLS Outpatient SHARIF JOHNSON MD [id number] 11/26/2014 15:23:00 11/26/2014 23:59:59 CLS Outpatient SHARIF JOHNSON MD [id number] 11/13/2014 15:20:00 11/13/2014 23:59:59 CLS Outpatient ILIR VILLALOBOSMIKE Dionne [id number] 10/27/2014 13:31:00 10/27/2014 23:59:59 CLS Outpatient MASSIEL VEGA [id number] 09/15/2014 16:03:00 09/15/2014 23:59:59 CLS Outpatient SHARIF JOHNSON MD [id number] 08/17/2014 15:49:00 08/17/2014 23:59:59 CLS Outpatient SHARIF JOHNSON MD [id number] 07/29/2014 10:54:00 07/29/2014 23:59:59 CLS Outpatient DESI BAIG APRN [id number] 07/02/2014 11:34:00 07/02/2014 23:59:59 CLS Outpatient SHARIF JOHNSON MD [id number] 06/18/2014 14:51:00 06/18/2014 23:59:59 CLS Outpatient SHARIF JOHNSON MD [id number] 06/02/2014 14:58:00 06/02/2014 23:59:59 CLS Outpatient DESI BAIG APRN [id number] 05/18/2014 14:07:00 05/18/2014 23:59:59 CLS Outpatient SHARIF JOHNSON MD [id number] 03/24/2014 15:01:00 03/24/2014 23:59:59 CLS Outpatient SHARIF JOHNSON MD [id number] 03/11/2014 13:43:00 03/11/2014 23:59:59 CLS Outpatient SHARIF JOHNSON MD [id number] 01/28/2014 14:29:00 01/28/2014 23:59:59 CLS Outpatient SHARIF JOHNSON MD [id number] 01/28/2014 14:29:00 01/28/2014 23:59:59 CLS Outpatient SHARIF JOHNSON MD [id number] 01/13/2014 15:39:00 01/13/2014 23:59:59 CLS Outpatient CAROLINE MENDOZA MD [id number] 01/13/2014 15:39:00 01/13/2014 23:59:59 CLS Outpatient CAROLINE MENDOZA MD [id number] 12/15/2013 15:34:00 12/15/2013 23:59:59 CLS Outpatient MIKE HAZEL DO [id number] 12/15/2013 15:34:00 12/15/2013 23:59:59 CLS Outpatient MAX DHILLON APRN [id number] 12/11/2013 11:52:00 12/11/2013 23:59:59 CLS Outpatient MAX DHILLON APRN [id number] 11/12/2013 16:30:00 11/12/2013 23:59:59 CLS Outpatient SHAHNAZ MARQUEZ APRN [id number] 11/09/2013 12:50:00 11/09/2013 23:59:59 CLS Outpatient TARI SHANK RANDERAUDIE Menjivar [id number] 11/03/2013 09:32:00 11/03/2013 23:59:59 CLS Outpatient DESI BAIG APRN [id number] 10/20/2013 09:44:00 10/20/2013 23:59:59 CLS Outpatient DESI BAIG APRN [id number] 09/22/2013 14:05:00 09/22/2013 23:59:59 CLS Outpatient CAROLINE MENDOZA MD [id number] 09/08/2013 08:20:00 09/08/2013 23:59:59 CLS Outpatient CAROLINE MENDOZA MD [id number] 08/31/2013 08:05:00 08/31/2013 23:59:59 CLS Outpatient CAROLINE MENDOZA MD [id number] 08/07/2013 11:43:00 08/07/2013 23:59:59 CLS Outpatient MARIA DE JESUS BUTLER DO [id number] 01/22/2013 09:37:00 01/22/2013 23:59:59 CLS Outpatient MARIA DE JESUS BUTLER DO [id number] 01/15/2013 10:49:00 01/15/2013 23:59:59 CLS Outpatient CAROLINE MENDOZA MD [id number] 01/15/2013 10:49:00 01/15/2013 23:59:59 CLS Outpatient CAROLINE MENDOZA MD [id number] 12/23/2012 13:28:00 12/23/2012 23:59:59 CLS Outpatient MARIA DE JESUS BUTLER DO [id number] 11/24/2012 14:22:00 11/24/2012 23:59:59 CLS Outpatient MIKE HAZEL DO [id number] 11/14/2012 13:45:00 11/14/2012 23:59:59 CLS Outpatient MIKE HAZEL DO [id number] 10/24/2012 13:17:00 10/24/2012 23:59:59 CLS Outpatient SHANIQUE VEGA MD [id number] 10/24/2012 13:17:00 10/24/2012 23:59:59 CLS Outpatient [id number] 10/21/2012 10:34:00 10/21/2012 23:59:59 CLS Outpatient [id number] 09/11/2012 11:29:00 09/11/2012 23:59:59 CLS Outpatient MARIA DE JESUS BUTLER DO [id number] 07/27/2013 11:07:00 Document Registration [id number] 07/02/2013 08:45:00 Document Registration [id number] 07/01/2013 11:44:00 Document Registration [id number] 07/01/2013 11:44:00 Document Registration [id number] 06/05/2013 08:35:00 Document Registration [id number] 05/13/2013 09:45:00 Document Registration [id number] 05/06/2013 10:52:00 Document Registration [id number] 04/21/2013 11:00:00 Document Registration [id number] 03/13/2013 11:19:00 Document Registration [id number] 03/12/2018 09:18:00 03/12/2018 23:59:59 CLS Outpatient MARCIA LUI MD [facility] CARD PREOP Z01.810 Z01.818 [id number] 03/05/2018 08:57:00 03/05/2018 23:59:59 CLS Outpatient BISHNU ROLDAN FACC, CHELLE WALTERS CCDS [facility] CARD SOB [id number] 02/16/2018 10:58:00 02/16/2018 23:59:59 CLS Outpatient SHANIQUE VEGA MD [facility] CVS UTI [id number] 02/10/2018 10:54:00 02/10/2018 23:59:59 CLS Outpatient MARCIA LUI MD [facility] CARD CAROTID ARTERY STENOSIS, BILATERAL [id number] 12/23/2017 10:16:00 12/23/2017 23:59:59 CLS Outpatient MARCIA LUI MD [facility] CARD Z01.810,Z01.818 [id number] 2017 20:15:00 2017 22:55:00 DIS Emergency GREGORY ROLDAN, JESSICA Adhikari [facility] ER WENT UNRESPONSIVE,HIT HEAD , VCV [id number] 12/02/2017 07:48:00 12/02/2017 23:59:59 CLS Outpatient SATHISH ABAD [facility] RAD I65.23 [id number] 11/26/2017 21:20:00 11/27/2017 11:41:00 DIS Outpatient PRUDENCE SHAW MD [facility] 4TH UROSEPSIS,ABDOMINAL PAIN, FEVER [id number] 11/26/2017 07:18:00 11/26/2017 15:18:00 DIS Outpatient LUL NORWOOD MD [facility] SDC INCONTINENCE,RETENTION [id number] 11/25/2017 13:20:00 11/25/2017 23:59:59 CLS Outpatient SATHISH ABAD [facility] RAD CAROTID ARTERY STENOSIS [id number] 11/19/2017 05:29:00 11/19/2017 14:39:00 DIS Outpatient LUL NORWOOD MD [facility] PREOP INCONTINENCE,RETENTION [id number] 11/04/2017 05:57:00 11/04/2017 23:59:59 CLS Outpatient LUL NORWOOD MD [facility] PREOP INCONTINENCE,RETENTION [id number] 10/15/2017 07:43:00 10/15/2017 23:59:59 CLS Outpatient BISHNU ROLDAN FACC, ALI FACP CCDS [facility] RAD AAA [id number] 10/15/2017 07:43:00 10/15/2017 14:13:00 DIS Outpatient BISHNU ROLDAN FACC, ALI FACP CCDS [facility] CATH AAA,CAD,PAF, HTN [id number] 10/08/2017 07:01:00 10/08/2017 23:59:59 CLS Outpatient BISHNU ROLDAN FACC, ALI FACP CCDS [facility] CARD R06.02 SOB [id number] 10/04/2017 13:16:00 10/04/2017 23:59:59 CLS Outpatient BISHNU ROLDAN FACC, ALI FACP CCDS [facility] CARD SOB [id number] 10/04/2017 07:15:00 10/04/2017 23:59:59 CLS Preadmit BISHNU ROLDAN FACAndrea, ALI FACP CCDS [facility] CARD SOB [id number] 02/12/2017 05:56:00 02/12/2017 11:40:00 DIS Outpatient LUL NORWOOD MD [facility] OAB [id number] 02/06/2017 09:39:00 02/06/2017 13:57:00 DIS Outpatient LUL NORWOOD MD [facility] PREOP OAB [id number] 11/27/2016 06:58:00 11/28/2016 16:00:00 DIS Outpatient LUL NORWOOD MD [facility] ISD [id number] 11/22/2016 10:00:00 11/22/2016 13:00:00 DIS Outpatient CUCO ROLDAN, LUL Garcia [facility] PREOP ISD [id number] 05/14/2016 15:45:00 05/16/2016 13:05:00 DIS Inpatient VALERIA ROLDAN, PRUDENCE Garcia [facility] 4TH [id number] 12/07/2015 07:47:00 12/07/2015 09:30:00 DIS Emergency CHARLES ROLDAN, TARA Arellano [facility] ER [id number] 03/10/2015 11:28:00 03/15/2015 12:00:00 DIS Inpatient ELIZABETH ROLDAN, SHARIF Menjivar [facility] [id number] 02/27/2015 21:37:00 02/28/2015 13:30:00 DIS Inpatient GARY ROLDAN, SHANIQUE Funk [facility] SURGICAL ALTERED MENTAL STATUS UTI [id number] 02/25/2015 03:44:00 02/25/2015 06:24:00 DIS Emergency EUNICE ROLDAN, JUAREZ Powell [facility] ER [id number] 02/03/2015 17:50:00 02/24/2015 16:55:00 DIS Inpatient SASHA ROLDAN, MYRNA Mc [facility] IRF [id number] 12/28/2014 09:10:00 12/28/2014 17:30:00 DIS Outpatient BISHNU ROLDAN FACC, CHELLE WALTERS CCDS [facility] [id number] 12/24/2014 13:00:00 12/24/2014 23:59:59 CLS Outpatient SHANIQUE VEGA MD [facility] [id number] 12/20/2014 20:00:00 12/20/2014 23:59:59 CLS Preadmit WILL CASPER DO [facility] SLEEP ARRHYTHMIAS,MOOD DISORDER,HYPOXIA [id number] 12/03/2014 09:58:00 12/03/2014 10:47:00 DIS Outpatient DIANNA MACHADO MD [facility] CARD [id number] 12/02/2014 09:45:00 12/02/2014 23:59:59 CLS Preadmit SHARIF JOHNSON MD [facility] RAD NAUSEA,UNABLE TO TOLERATE SOLID FOODS [id number] 11/22/2014 14:15:00 11/22/2014 23:59:59 CLS Preadmit WILL CASPER DO [facility] RT HYPOXIA DYPSNEA [id number] 11/11/2014 11:54:00 11/11/2014 14:00:00 DIS Emergency EMANUEL WILKINSON MD [facility] [id number] 11/04/2014 17:27:00 11/05/2014 11:35:00 DIS Inpatient SHANIQUE VEGA MD [address] [id number] 11/01/2014 22:05:00 11/02/2014 16:45:00 DIS Inpatient MIKE HAZEL DO [address] [id number] 09/25/2014 11:09:00 09/25/2014 23:59:59 CLS Outpatient [id number] 08/23/2014 12:50:00 08/23/2014 23:59:59 CLS Outpatient DIANNA MACHADO MD Via [facility] CARD [id number] 08/02/2014 10:32:00 08/02/2014 23:59:59 CLS Outpatient ANDRE HERNANDEZ DO Via [facility] RAD [id number] 07/23/2014 08:50:00 07/23/2014 23:59:59 CLS Outpatient DIANNA MACHADO MD Via [facility] CARD [id number] 06/28/2014 12:46:00 06/28/2014 14:24:00 DIS Outpatient DIANNA MACHADO MD Via [facility] CARD [id number] 06/07/2014 12:24:00 06/07/2014 14:09:00 DIS Emergency RUFINA PEREZ DO Via [facility] ER [id number] 05/24/2014 12:58:00 05/24/2014 13:45:00 DIS Outpatient DIANNA MACHADO MD Via [facility] CARD [id number] 12/22/2013 12:42:00 12/22/2013 23:59:59 CLS Outpatient MAX DHILLON Via [facility] CARD [id number] 11/12/2013 18:13:00 11/14/2013 14:30:00 DIS Inpatient SHARIF JOHNSON MD Via [facility] 4TH COPD EXACERBATION [id number] 07/02/2013 11:37:00 07/09/2013 12:50:00 DIS Inpatient SHANIQUE VEGA MD [address] [id number] 07/02/2013 11:06:00 07/02/2013 23:59:59 CLS Emergency [id number] 06/11/2013 09:24:00 06/11/2013 23:59:59 CLS Outpatient CAROLINE MENDOZA MD Via [facility] RAD [id number] 04/01/2018 10:00:00 PEN Preadmit BISHNU ROLDAN FACC, CHELLE WALTERS CCDS [facility] CATH PERIPHERAL ANGIOGRAPHY [id number] 02/17/2015 16:12:00 Document Registration [id number] 02/17/2015 16:12:00 Document Registration [id number] 02/17/2015 16:12:00 Document Registration [id number] 02/17/2015 16:12:00 Document Registration [id number] 09/30/2012 14:20:00 Document Registration [id number] 07/01/2012 14:08:00 Document Registration [id number] 03/11/2012 14:34:00 Document Registration [id number] 10/17/2011 15:30:00 Document Registration [id number] 10/09/2011 15:24:00 Document Registration [id number] 10/06/2011 09:02:00 Document Registration [id number] 07/30/2011 17:25:00 Document Registration [id number] 07/17/2011 16:12:00 Document Registration [id number] 09/10/2017 10:20:00 09/10/2017 23:59:59 CLS Outpatient SHANIQUE VEGA MD Via [id number] 03/10/2015 09:27:29 ACT Document Registration
[2018-04-01] MEDS ORDERED: NS IV 1000 ML 3,000 ML ONE (08:07)
[2018-04-01 08:50] LABS: RED BLOOD COUNT 4.36 10^6/uL (4.35-5.85); RED CELL DISTRIBUTION WIDTH 16.1 % (10.0-14.5); WHITE BLOOD COUNT 9.1 10^3/uL (4.3-11.0)
[2018-04-01 08:55] LABS: INR 1.1 (0.8-1.4); PROTHROMBIN TIME PATIENT 14.5 SEC (12.2-14.7)
[2018-04-01] MEDS ORDERED: NS IV 1000 ML 1,000 ML IV SCH ×2 (09:00→10:36)
[2018-04-01] MEDS ORDERED: ACET325T49 PO ×2 (09:04→09:28)
[2018-04-01 09:05] LABS: ALANINE AMINOTRANSFERASE 23 U/L (0-55); ALBUMIN 4.3 GM/DL (3.2-4.5); ALKALINE PHOSPHATASE 71 U/L (40-136); BILIRUBIN,TOTAL 0.5 MG/DL (0.1-1.0); BUN/CREATININE RATIO 27; CALCIUM 9.7 MG/DL (8.5-10.1); CARBON DIOXIDE 25 MMOL/L (21-32); CHLORIDE 105 MMOL/L (98-107); CHOLESTEROL 173 MG/DL (< 200); CREATININE SERUM 0.81 MG/DL (0.60-1.30); GFR ESTIMATED > 60; GLUCOSE 101 MG/DL (70-105); HDL CHOLESTEROL 68 MG/DL (40-60); POTASSIUM 4.1 MMOL/L (3.6-5.0); SODIUM 141 MMOL/L (135-145); TOTAL PROTEIN 7.6 GM/DL (6.4-8.2); TRIGLYCERIDES 68 MG/DL (<150); VLDL CHOLESTEROL 14 MG/DL (5-40)
[2018-04-01] MEDS ORDERED: APIX5TAB PO (09:05)
[2018-04-01] MEDS ORDERED: ESTR42.52 VG (09:06)
[2018-04-01] MEDS ORDERED: POLY17PO23 PO (09:21)
[2018-04-01] MEDS ORDERED: LORA0.5T PO (09:22)
[2018-04-01] MEDS ORDERED: TRAZ-28 PO (09:23)
[2018-04-01] MEDS ORDERED: ASPI-999 PO (09:24)
[2018-04-01] MEDS ORDERED: HEParin 1000 UNIT/ML (10ML VIAL) FOR BOLUS ONE (09:24)
[2018-04-01] MEDS ORDERED: LIDOCAINE 1% INJ 20 ML 20 ML VIAL ONE (09:24)
[2018-04-01] MEDS ORDERED: ESCI20TA45 PO (09:25)
[2018-04-01] MEDS ORDERED: TRAM50TA2 PO (09:25)
[2018-04-01] MEDS ORDERED: CLOP75TA28 PO (09:26)
[2018-04-01] MEDS ORDERED: MIDAZOLAM 5 MG/5 ML (VERSED) VIAL ONE (09:27)
[2018-04-01] MEDS ORDERED: diphenhydrAMINE 50 MG/ML INJ (BENADRYL) ONE (09:28)
[2018-04-01] MEDS ORDERED: fentaNYL INJECTION 100 MCG/2 ML AMP ONE (09:28)
[2018-04-01] MEDS ORDERED: RT-ALBUINH IH (09:29)
--- NOTE | 2018-04-01 09:55 | Cardiac Procedure Note-CS/ASA ---
Pre-Procedure Note Pre-Op Procedure Note H&P Reviewed The H&P was reviewed, patient examined and no changes noted. Date H&P Reviewed: April 01, 2018 Time H&P Reviewed: 09:55 Conscious Sedation Pre-Proced Time Reviewed: 09:55 ASA Class: 3 Airway Mallampati Classification: ([place] appropriate class) I. II. III, IV Lungs Heart ASA score ASA 1: a normal healthy patient ASA 2: a patient with a mild systemic disease (mid diabetes, controlled hypertension, obesity ASA 3: a patient with a severe systemic disease that limits activity (angina , COPD, prior Myocardial infarction) ASA 4: a patient with an incapacitating disease that is a constant threat to life (CHF, renal failure) ASA 5: a moribund patient not expected to survive 24 hrs. (ruptured aneurysm) ASA 6: a declared brain patient whose organs are being harvested. For emergent operations, add the letter E after the classification Grade 2 Sedation Plan: Analgesia, Amnesia, Plan communicated to team members, Discussed options with patient/fam, Discussed risks with patient/fam Note The patient is an appropriate candidate to undergo the planned procedure, sedation, and anesthesia. The patient immediately re-assessed prior to indication. CHELLE GOETZ MD FACP FAC CCDS April 01, 2018 09:55
--- NOTE | 2018-04-01 10:40 | Discharge Inst-Cardiology ---
Discharge Inst-Cardiac Discharge Medications Continued Medications: Acetaminophen (Acetaminophen) 325 Mg Tablet 650 MG PO Q4H PRN for PAIN-MILD, TAB Acetaminophen (Acetaminophen) 325 Mg Tablet 325 MG PO TID for WITH TRAMADOL, TAB Albuterol Sulfate (Proair Hfa) 8.5 Gm Hfa.aer.ad 1 PUFF IH Q4H PRN for SHORTNESS OF BREATH, INH Albuterol Sulfate (Ventolin Hfa) 1 Puff Puff 2 PUFF IH Q6H PRN for SHORTNESS OF BREATH, PUFF 1 PUFF = 90 MCG Apixaban (Eliquis) 5 Mg Tablet 5 MG PO BID, TAB Aspirin (Aspirin) 81 Mg Tab.chew 81 MG PO DAILY, TAB Atorvastatin Calcium (Lipitor) 40 Mg Tablet 40 MG PO HS, TAB Bupropion HCl (Bupropion Xl) 300 Mg Tab.er.24h 300 MG PO HS, TAB Escitalopram Oxalate (Escitalopram Oxalate) 20 Mg Tablet 20 MG PO DAILY, TAB Furosemide (Furosemide) 20 Mg Tablet 20 MG PO Q48H, TAB Gabapentin (Gabapentin) 400 Mg Capsule 400 MG PO TID, CAP Lorazepam (Lorazepam) 0.5 Mg Tablet 0.5 MG PO DAILY, TAB Metoprolol Tartrate (Metoprolol Tartrate) 50 Mg Tablet 50 MG PO BID, TAB Potassium Chloride (Potassium Chloride) 20 Meq Tab.er.prt 40 MEQ PO Q48H, TAB TAKES 2 (20MEQ) TABLETS EVERY OTHER DAY WITH FUROSEMIDE Tamsulosin HCl (Flomax) 0.4 Mg Cap 0.4 MG PO DAILY, CAP Tramadol HCl (Tramadol HCl) 50 Mg Tablet 50 MG PO TID, TAB Trazodone HCl (Trazodone HCl) 50 Mg Tablet 25 MG PO HS, TAB Discontinued Medications: Clopidogrel Bisulfate (Clopidogrel) 75 Mg Tablet 75 MG PO DAILY, TAB CHELLE GOETZ MD FACP FAC CCDS April 01, 2018 10:40
--- NOTE | 2018-04-01 10:40 | Discharge Inst-Post CATH ---
Discharge Inst-CATH Post Cardiac Cath D/C Inst Follow Up/Plan F/u with Dr Torrez in one week CARDIAC CATH DISCHARGE INSTRUCTIONS *Hold Metformin for 48 hours post heart cath. ACTIVITY * Go Home directly and rest. * Limit activity of the leg (or wrist if it was used) for 7 days including aerobics, swimming, jogging, bicycling, etc. * Restrict stair-climbing for 7 days if possible, if not, climb up with your non -cath leg, then bring together on the same step. * Avoid lifting, pushing, pulling or excessive movement of the affected extremity for 7 days. * Customary sexual activity may be resumed after 2 days-use caution not to use a position that strains or causes pain to the affected extremity. * No driving for 24 hours. * NO SMOKING. * Avoid straining for bowel movements for 7 days. * Gentle walking on level ground is allowed. * Returning to work will depend on the type of procedure and the results. Your doctor will discuss this with you. CALL YOUR DOCTOR FOR ANY OF THE FOLLOWING: *If bleeding from the puncture site occurs- Apply gentle pressure to site with clean cloth and call your doctor or EMS. * If a knot or lump forms under the skin, increases in size, or causes pain. * If bruising appears to be worsening or moving further down your leg instead of disappearing. * Temperature above 101 F. CARE OF YOUR GROIN INCISION; * Bruising or purple discoloration of the skin near the puncture site is common. * You may shower only, no bathtub bathing for 5 days. Be careful to avoid slipping as your leg may feel stiff. * If a closure device was used on your femoral artery, please see the attached guide regarding care of the device and your leg. * REMOVE the dressing from your groin the next day after your procedure in the shower. CARE OF YOUR WRIST INCISION; * Bruising or purple discoloration of the skin near the puncture site is common. * You may shower. * DO NOT submerge wrist. * Remove dressing in 24 hours. CHELLE TORREZ MD FACP [facility] CCDS April 01, 2018 10:40
[2018-04-01] MEDS ORDERED: PATIENT MAY USE OWN MEDS, ALL PO SCH (10:45)
--- NOTE | 2018-04-01 13:39 | Discharge Inst-Cardiology ---
Discharge Inst-Cardiac Discharge Medications Continued Medications: Acetaminophen (Acetaminophen) 325 Mg Tablet 650 MG PO Q4H PRN for PAIN-MILD, TAB Acetaminophen (Acetaminophen) 325 Mg Tablet 325 MG PO TID for WITH TRAMADOL, TAB Albuterol Sulfate (Proair Hfa) 8.5 Gm Hfa.aer.ad 1 PUFF IH Q4H PRN for SHORTNESS OF BREATH, INH Albuterol Sulfate (Ventolin Hfa) 1 Puff Puff 2 PUFF IH Q6H PRN for SHORTNESS OF BREATH, PUFF 1 PUFF = 90 MCG Apixaban (Eliquis) 5 Mg Tablet 5 MG PO BID, TAB Aspirin (Aspirin) 81 Mg Tab.chew 81 MG PO DAILY, TAB Atorvastatin Calcium (Lipitor) 40 Mg Tablet 40 MG PO HS, TAB Budesonide/Formoterol Fumarate (Symbicort 160-4.5 Mcg Inhaler) 10.2 Gm Hfa.aer.ad 2 PUFF IH BID, INHALER Bupropion HCl (Bupropion Xl) 300 Mg Tab.er.24h 300 MG PO HS, TAB Escitalopram Oxalate (Escitalopram Oxalate) 20 Mg Tablet 20 MG PO DAILY, TAB Estradiol (Estrace Cream) 42.5 Gm Cream.appl 1.25 GM VG PRN PRN for UTI PROPHYLAXIS, APPLIC Furosemide (Furosemide) 20 Mg Tablet 20 MG PO Q48H, TAB Gabapentin (Gabapentin) 400 Mg Capsule 400 MG PO TID, CAP Lorazepam (Lorazepam) 0.5 Mg Tablet 0.5 MG PO DAILY, TAB Metformin HCl (Metformin HCl) 500 Mg Tablet 500 MG PO DAILY, TAB TAKE WITH A MEAL Metoprolol Tartrate (Metoprolol Tartrate) 50 Mg Tablet 50 MG PO BID, TAB Ondansetron HCl (Ondansetron HCl) 4 Mg Tablet 4 MG PO Q6H PRN for NAUSEA/VOMITING-1ST LINE, TAB Polyethylene Glycol 3350 (Polyethylene Glycol 3350) 17 Gm Powd.pack 17 GM PO PRN PRN for CONSTIPATION-1ST LINE, EACH Potassium Chloride (Potassium Chloride) 20 Meq Tab.er.prt 40 MEQ PO Q48H, TAB TAKES 2 (20MEQ) TABLETS EVERY OTHER DAY WITH FUROSEMIDE Tamsulosin HCl (Flomax) 0.4 Mg Cap 0.4 MG PO DAILY, CAP Tramadol HCl (Tramadol HCl) 50 Mg Tablet 50 MG PO TID, TAB Trazodone HCl (Trazodone HCl) 50 Mg Tablet 25 MG PO HS, TAB Discontinued Medications: Clopidogrel Bisulfate (Clopidogrel) 75 Mg Tablet 75 MG PO DAILY, TAB Patient Instructions Patient Instructions: HOLD METFORMIN UNTIL THE EVEVING OF 04/03/18 AND THEN RESUME PREVIOUS DOSE CHELLE GOETZ MD FACP FAC CCDS April 01, 2018 13:39
--- NOTE | 2018-04-01 19:44 | CARDIAC CATHETERIZATION ---
DATE OF SERVICE: 04/01/2018 PERIPHERAL ANGIOGRAPHY REPORT The patient is an 82-year-old lady with a history of coronary artery disease, carotid arterial disease, and peripheral arterial disease. She has bilateral leg and hip discomfort suggestive of claudication. Peripheral angiography was carried out today after having obtained an informed consent.G DESCRIPTION OF PROCEDURE: She was brought to the cardiac catheterization laboratory in a fasting state. The right groin was prepared and draped in the usual sterile fashion. Lidocaine 1% with local anesthesia. Modified Seldinger technique was used to advance a 5-Kyrgyz sheath in the right femoral artery. A 5-Kyrgyz pigtail catheter was used to carry out abdominal aortic angiography with the catheter placed at the level of L1. Subsequently, the catheter was pulled down to just above the level of the aortoiliac bifurcation and bilateral leg artery angiography was performed with runoff down to the level of the ankles. At the end of the procedure, following removal of the diagnostic catheter over a wire, manual pressure was used to achieve hemostasis. She tolerated the procedure well. ABDOMINAL AORTIC ANGIOGRAPHY: Abdominal aortic angiography indicates an infrarenal abdominal aortic aneurysm which is moderate in size and which does not show any evidence of instability or leakage. The renal arteries are identified. They show 70% ostial/proximal stenoses on each side. There appears to be some disease of the proximal inferior mesenteric artery, but this artery is not well visualized. BILATERAL LEG ARTERY ANGIOGRAPHY: Bilateral leg artery angiography was carried out with runoff to the level of the ankles. On the right side, there is an aneurysm involving the right common iliac artery which extends up to its bifurcation and seems to extend into the internal iliac artery, as well. The right common femoral artery is intact. The right deep femoral artery is intact, but the right superficial femoral artery is occluded in its proximal/ostial portion. The right superficial femoral artery reconstitute via collaterals in its mid to distal portion and has a 2-vessel runoff. The right dorsalis pedis appears to be occluded. On the left side, there is diffuse moderate disease. The left common and external iliac arteries do not exhibit significant stenosis. The left common femoral artery is intact. The left superficial and deep femoral arteries are intact. The left superficial femoral artery has diffuse moderate to moderately severe disease. In its mid to distal portion, there are multiple up to 75% stenoses in the left superficial femoral artery. The left superficial femoral artery continues as the popliteal artery and there is a 3-vessel runoff distally. CONCLUSIONS: 1. Moderate-sized, infrarenal, saccular abdominal aortic aneurysm. 2. A 70% ostial and proximal stenoses of the renal arteries on both sides. 3. 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 4. Proximal occlusion of the right superficial femoral artery which reconstitutes via collaterals in its distal portion. There is a 2-vessel runoff in the leg. 5. Multiple up to 75% stenoses in the mid and distal portions of the left superficial femoral artery. DISCUSSION AND RECOMMENDATIONS: Based on the results of the study, we are recommending a surgical consultation for evaluation and treatment of the aneurysms described above and the obstructive peripheral arterial disease, as well. Job ID: [id number] DocumentID: [id number] Dictated Date: 04/01/2018 10:31:46 Grounds Caretaker Date: 04/01/2018 13:39:49 Dictated By: CHELLE GOETZ MD, MA, FACP, FACC, MTDD
== END 2018-04-01 14:20 | disposition home or self-care (01) ==
LOC: CATH 07:46 → SURG 10:52 → CATH 14:20
PROVIDERS: ATTEND Internal Medicine Cardiovascular Disease
DX: I70.203 Unspecified atherosclerosis of native arteries of extremities, bilateral legs (principal); I25.10 Atherosclerotic heart disease of native coronary artery without angina pectoris; I70.1 Atherosclerosis of renal artery; I71.4 Abdominal aortic aneurysm, without rupture; I72.3 Aneurysm of iliac artery; I48.0 Paroxysmal atrial fibrillation; I10 Essential (primary) hypertension; E78.00 Pure hypercholesterolemia, unspecified; J44.9 Chronic obstructive pulmonary disease, unspecified; Z87.891 Personal history of nicotine dependence; Z95.1 Presence of aortocoronary bypass graft; Z79.01 Long term (current) use of anticoagulants; Z79.02 Long term (current) use of antithrombotics/antiplatelets; Z79.82 Long term (current) use of aspirin; Z79.899 Other long term (current) drug therapy
CPT/HCPCS: 36200; 36415; 36430; 75625; 75716; 80053; 80061; 85027; 85610; 85730; 87081; 93005

== ENCOUNTER → 2018-04-10 | Outpatient (CLI) | payer MEDICARE, MEDICAID ==
[~2018-04-10] MED LIST changes: +ACET325T49 PO; +CATHETER FLUSH 10 ML SYR IV PRN; +CEPH-507 PO; +CLOP75TA28 PO; +ESCI20TA45 PO; +IOHEXOL 350 MG/ML 150 ML (OMNIPAQUE 350) VIAL IV ONE; +LORA0.5T PO; +NS 250 ML (IVPB) BAG IV ONE; +OXYC-197 PO; +POLY17PO23 PO; +RECEIVED CONTRAST (Hold Metformin) IV SCH
--- NOTE | 2018-04-10 17:29 | Diagnostic Imaging Report ---
INDICATION: Abdominal aortic aneurysm, history of peripheral vascular disease. EXAMINATION: CTA of the aorta and lower extremities was performed with IV contrast bolus and axial slices and sagittal, coronal MIP reconstructions. FINDINGS: Visualized portions of the lung bases are clear. There are no pleural fluid collections. There is no free intraperitoneal air. The patient has a left knee prosthesis and a right hip prosthesis. There is no acute bony abnormality. There is degenerative change throughout the lumbar spine. The liver shows a small cyst in the right lobe, anteriorly. Spleen and adrenals and pancreas appear unremarkable. Kidneys, bilaterally, show some cortical irregularity and thinning but no hydronephrosis or mass. There is a small benign cyst in the left kidney. There is no retroperitoneal mass or adenopathy. There is no ascites or abnormal fluid collection. There is no pelvic adenopathy or free fluid. There is a small ventral hernia containing fat. A Askew catheter is seen in the bladder. CTA images demonstrate distal descending aorta to show diffuse plaquing but no aneurysmal disease. The abdominal aorta shows aneurysmal disease in the inferior renal segment with maximal diameter of 4.0 x 3.7 cm. The left renal artery is patent with minimal narrowing. Right renal artery shows significant stenosis at its origin. There is ectasia of the right common iliac artery which measures about 1.9 cm. On the right side, the common iliac artery is patent and shows moderate plaquing as well as the above-mentioned early aneurysm. The right internal iliac artery and external iliac artery are patent with some mild posterior plaquing. The right common femoral artery and profundus femoris artery are patent. The right SFA is occluded, proximally, and then refills in the mid thigh via collaterals. Right popliteal artery is patent with diffuse moderate plaquing. The right posterior tibial artery and peroneal artery are patent. Anterior tibial artery appears to be occluded, proximally. On the left side, the common iliac artery shows diffuse plaquing but no high-grade stenosis. The left internal and external iliac arteries are patent. The left common femoral artery shows posterior plaquing. The left profunda femoris artery is patent. The left SFA is patent with diffuse mild to moderate plaquing. Left popliteal artery and trifurcation and tibial vessels are patent in the lower leg, where the posterior tibial artery then occludes. IMPRESSION: 1. Peripheral vascular disease, as described above. There is a 4 cm abdominal aortic aneurysm. There is ectasia of the right common iliac artery measuring 1.9 cm with irregular plaquing and a linear flap. On the right side there is occlusion of the SFA, proximally, with refilling of the mid thigh via collaterals with two-vessel runoff, distally. On the left side, there is patency of the SFA with moderate diffuse plaquing. There is two-vessel runoff on the left side via the anterior tibial artery and peroneal artery. 2. There is a small cyst in the liver. There is a ventral hernia containing fat. There is some cortical irregularity and thinning of both kidneys. There appears to be significant right renal artery stenosis. Dictated by: Dictated on workstation # [id number]
== END ==
LOC: RAD 13:32
PROVIDERS: ATTEND Nurse Practitioner
DX: I71.4 Abdominal aortic aneurysm, without rupture (principal); I70.8 Atherosclerosis of other arteries; I72.3 Aneurysm of iliac artery; I70.208 Unspecified atherosclerosis of native arteries of extremities, other extremity; K43.9 Ventral hernia without obstruction or gangrene; N28.89 Other specified disorders of kidney and ureter
CPT/HCPCS: 75635

== ENCOUNTER 2018-05-05 05:11 | Emergency (ER) | payer MEDICARE, MEDICAID ==
[~2018-05-05] VITALS: Ht 157.5 cm; Wt 78.0 kg
[~2018-05-05 05:11] MED LIST changes: -CATHETER FLUSH 10 ML SYR IV PRN; -CEPH-507 PO; -IOHEXOL 350 MG/ML 150 ML (OMNIPAQUE 350) VIAL IV ONE; -NS 250 ML (IVPB) BAG IV ONE; -OXYC-197 PO; -RECEIVED CONTRAST (Hold Metformin) IV SCH
--- OUTSIDE RECORDS SUMMARY | 2018-05-05 05:16 | XMS REPORT | Clinical Summary ---
Author Author [facility] Organization [facility] Address Unknown Phone Unavailable Care Team Providers Care Business Unit Controller Name Role Phone Itz Chacon MD PCP Source Comments Some departments are not documenting in the electronic medical record. If you do not see the information that you expected, contact Release of Information in the Health Information Management department at [phone] for further assistance in locating additional records.[facility] Allergies Active Allergy Reactions Severity Noted [...] Overview: Added automatically from request for surgery [id number] Mixed stress and urge urinary incontinence 03/20/2017 Overview: Longstanding hx of JOE (UUI>MAXWELL), OAB, ISD, urinary retention who is s/p PVS (Solyx) by Dr. Andrews on 11/27/16; Macroplastique injection 02/12/17. Trailed Liz Amos without success. 03/20/17 - [facility] eval with Dr. Carlisle. Still with JOE (UUI>MAXEWLL). Exam with moderate vulvovaginal atrophy, + leak [...] Taken Blood Pressure 178/94 09/27/2017 10:47 AM TOUR AGENT Pulse 77 09/27/2017 10:47 AM TOUR AGENT Temperature 36.6 C (97.9 F) 09/27/2017 10:47 AM TOUR AGENT Respiratory Rate - - Oxygen Saturation 96% 09/27/2017 10:47 AM TOUR AGENT Inhaled Oxygen - - Concentration Weight 77.2 kg (170 lb 3.2 oz) 09/27/2017 10:47 AM TOUR AGENT Height 157.5 cm (5' 2") 09/27/2017 10:47 AM TOUR AGENT Body Mass Index 31.13 09/27/2017 10:47 AM TOUR AGENT Plan of Treatment Health Maintenance Due Date Last Done Comments PHYSICAL (COMPREHENSIVE) 1944 EXAM PERTUSSIS VACCINE 1948 TETANUS VACCINE 1954 SHINGLES VACCINE 1997 OSTEOPOROSIS SCREENING 2002 PNEUMONIA (PCV13/PPSV23) 2002 VACCINES (1 of 2 - PCV13) INFLUENZA VACCINE 08/18/2018 08/06/2013 Results Not on filefrom Last 3 Months
--- OUTSIDE RECORDS SUMMARY | 2018-05-05 05:22 | XMS REPORT ---
Author Author SHAHNAZ MARQUEZ [facility] Address [address] [place] [address] Care Team Providers Care It Technical Support Specialist Name Role Phone SHAHNAZ MARQUEZ Unavailable PROBLEMS Type Condition ICD9-CM Code BOG10-OQ Code Onset Dates Condition Status SNOMED Code Problem Other chronic pain G89.29 Active 50570047 Problem Type 2 diabetes mellitus without complication, without long-term current use of insulin E11.9 Active 001571281 Problem Low back pain M54.5 Active 453819404 Problem Hypertension I10 Active 07567803 Problem Coronary artery disease I25.10 Active 38078884 Problem Hyperlipidemia E78.5 Active 55676288 Problem Peripheral vascular disease I73.9 Active 441907873 Problem Insomnia G47.00 Active 070841599 Problem Reactive depression F32.9 Active 09566202 Problem Ventral hernia without obstruction or gangrene K43.9 Active 115202919 Problem Anxiety F41.9 Active 13380185 Problem Pharyngeal dysphagia R13.13 Active [id number] ALLERGIES No Information ENCOUNTERS Encounter Location Date Diagnosis [facility] [id number] [place] [address] 66340- 8419 March, [facility] [id number] [place] [address] 25096- 0604 March, Other chronic pain G89.29 [facility] [id number] [place] [address] 18894- 0365 March, [facility] [id number] [place] [address] 22396- 9957 March, [facility] [id number] [place] [address] 67324- 6838 Feb, [facility] [id number] [place] [address] 83859- 3141 Feb, Other chronic pain G89.29 [facility] [address] [place] [id number] Feb, Other chronic pain G89.29 and Anxiety F41.9 [facility] [address] [address] 6046 Feb, [facility] [address] [address] 2417 Jan, [facility] [address] [address] 6600 Jan, [facility] [id number] [place] [address] 89966- 6438 Jan, [facility] [address] [address] 5600 Jan, [facility] [id number] [place] [address] 24833- 7471 Dec, Via [facility] [address] [place] [id number] Dec, Peripheral vascular disease I73.9 ; 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 ; Other chronic pain G89.29 ; Anxiety F41.9 ; Reactive depression F32.9 ; Insomnia G47.00 and Type 2 diabetes mellitus without complication, without long-term current use of insulin E11.9 [facility] [address] [id number] [place] [address] Nov [facility] [address] [id number] [id number] Nov, Anxiety F41.9 [facility] [address] [facility] [id number] [address] 49[address] Nov, [facility] [address] [id number] [id number] Nov, Anxiety F41.9 [facility] [address] [place] [id number] Nov, Status post surgery Z98.890 ; Confused R41.0 ; Anxiety F41.9 and Other chronic pain G89.29 [facility] [id number] [id number] Nov, Other chronic pain G89.29 [facility] [address] [address] 1376 Oct, [facility] [id number] [place] [address] [id number] Oct, Other chronic pain G89.29 [facility] [id number] [place] [address] 78747- 2676 Oct, Anxiety F41.9 [facility] [id number] [place] [address] [id number] Sep, Other chronic pain G89.29 [facility] [id number] [place] [address] [id number] Sep, Via [facility] [address] [place] [id number] Aug, Dysuria R30.0 and Anxiety F41.9 [facility] [id number] [place] [address] 971419- 9717 Aug, [facility] [id number] [place] [address] [id number] Aug, Other chronic pain G89.29 [facility] [id number] [place] [address] 17193- 7076 Jul, Other chronic pain G89.29 [facility] [id number] [id number] Jun, [facility] [id number] [place] [address] [id number] Jun, Other chronic pain G89.29 [facility] [address] [address]- 5526 Jun, [facility] [id number] [place] [address] 07534- 3186 May, Other chronic pain G89.29 [facility] [address] [address]- 4483 Apr, Other chronic pain G89.29 Via [facility] [address] [place] [id number] Apr, Reactive depression F32.9 and Pharyngeal dysphagia R13.13 [facility] [id number] [place] [address] 99045- 4125 Apr, Urinary tract infection without hematuria, site unspecified N39.0 [facility] [id number] [place] [address] 02988- 1059 March, Other chronic pain G89.29 [facility] [id number] [place] [address] 09339- 9471 Feb, Other chronic pain G89.29 [facility] [id number] [place] [address] 42363- 8026 Feb, [facility] [id number] [place] [address] [id number] Feb, Via [employer] [address] [place] [id number] Feb, Dysuria R30.0 and Ventral hernia without obstruction or gangrene K43.9 [facility] [address], [place] [address]- 7596 Jan, Other chronic pain G89.29 [facility] [id number] [place] [address] [id number] Dec, Other chronic pain G89.29 [facility] [id number] [place] [address] 05009- 6640 Nov, Other chronic pain G89.29 Via [employer] [address] [place] [id number] Nov, Lymphadenitis I88.9 [facility] [id number] [place] [address] 57143- 5101 Nov, Other chronic pain G89.29 [facility] [address] [facility] [id number], [place] [address]- 4951 Nov, [facility] [place] [facility] [id number] [place] [address] [id number] Nov, Other chronic pain G89.29 [facility] [address] [place] [id number] Oct, Low back pain M54.5 ; Hypertension I10 and Type 2 diabetes mellitus without complication, without long-term current use of insulin E11.9 [facility] [address] [facility] [id number], [place] [address]- 5407 Oct, [facility] [address] [facility] [id number] [place] [address] 91660- 9128 Oct, [facility] [id number] [place] [address] 59573- 3624 Oct, [facility] [id number] [place] [address] 13105- 2189 Oct, [facility] [address] [facility] [id number], [place] [address]- 8919 Sep, [facility] [id number] [place] [address] 97611- 1489 Sep, [facility] [address] [id number], [place] [address]- 8877 Aug, Other chronic pain G89.29 [facility] [address] [facility] [id number], [place] [address]- 9094 Jul, [facility] [address] [facility] [id number], [place] [address]- 2615 Jul, [facility] [address] [facility] [id number] 8095 Jul, [facility] [address] [id number] 1901 Jun, [facility] [address], [place] [address]- 0262 15 Jun, 2016 [facility] [address] [place] [id number] Jun, Low back pain M54.5 ; Other chronic pain G89.29 and Coronary artery disease I25.10 [facility] [address], [place] [address]- 2473 Jun, [facility] [id number] [place] [address] 03981- 6244 May, [facility] [id number] [place] [address] 09234- 8133 May, [facility] [id number] [place] [address] 25010- 7565 May, Other chronic pain G89.29 [facility] [id number] [place] [address] 72552- 7313 May, [facility] [address], [place] [address]- 6379 Apr, [facility] [id number] [place] [address] 93170- 8035 Apr, Acute cystitis without hematuria N30.00 [facility] [address], [place] [address]- 3243 16 Apr, 2016 Acute cystitis without hematuria N30.00 ; Coronary artery disease I25.10 ; Low back pain M54.5 and Other chronic pain G89.29 [facility] [address], [place] [address]- 4318 Apr, Other chronic pain G89.29 [facility] [id number] [place] [address] 82181- 9515 March, Other chronic pain G89.29 [facility] [address], [place] [address]- 6985 Feb, [facility] [address] [id number] [address]- 1543 15 Feb, 2016 Arthritis M19.90 [facility] [id number] [place] [address] 37288- 7031 13 Feb, 2016 [facility] [id number] [place] [address] 43791- 9590 30 Jan, 2016 [facility] [id number] [place] [address] 44163- 0628 Jan, [facility] [id number] [place] [address] 76089- 5694 Jan, Other chronic pain G89.29 [facility] [id number] [place] [address] 78453- 3434 Jan, Hypertension I10 ; Coronary artery disease I25.10 and Insomnia G47.00 [facility] [id number] [place] [address] 33402- 1452 Jan, [facility] [id number] [place] [address] 58301- 7352 Dec, Right hip pain M25.551 [facility] [id number] [place] [address] 74294- 3113 Dec, [facility] [id number] [place] [address] 14235- 4930 Dec, [facility] [id number] [place] [address] 25236- 7885 Dec, [facility] [id number] [place] [address] 33955- 9008 Dec, Other chronic pain G89.29 [facility] [id number] [place] [address] 56719- 7517 Dec, [facility] [id number] [place] [address] 24681- 7181 Nov, [facility] [id number] [place] [address] 69054- 3958 Nov, Other chronic pain G89.29 [facility] [id number] [place] [address] 77233- 9492 Nov, Right hip pain M25.551 and Coronary artery disease I25.10 [facility] [id number] [place] [address] 87193- 3756 Nov, Other chronic pain G89.29 [facility] [id number] [place] [address] 41711- 5381 Oct, [facility] [id number] [place] [address] 66635- 6545 Oct, [facility] [id number] [place] [address] 33499- 1181 Sep, [facility] [id number] [place] [address] 68410- 6371 Sep, [facility] [id number] [place] [address] 95974- 8305 Aug, [facility] [id number] [place] [address] 28516- 0989 Aug, Hypertension I10 ; Coronary artery disease I25.10 and Arthritis M19.90 [facility] [id number] [place] [address] 33841- 6707 Jun, [facility] [id number] [place] [address] 48858- 1536 Jun, Essential hypertension, benign 401.1 ; Other chronic pain 338.29 and Chronic airway obstruction, not elsewhere classified 496 [facility] [id number] [place] [address] 36002- 7507 Jun, [facility] [id number] [place] [address] 70727- 0175 Jun, [facility] [id number] [place] [address] 12278- 5273 Jun, [facility] [address] [id number] [place] [address]- 3003 May, [facility] [address] [id number] [place] [address]- 3909 May, [facility] [address] [id number] [place] [address]- 3333 Apr, [facility] [address] [id number] [place] [address]- 2576 Apr, [facility] [address] [id number] [place] [address]- 7081 Apr, [facility] [address] [id number] [place] [address]- 9602 March, [facility] [address] [id number] [place] [address]- 5712 March, [facility] [address] [id number] [place] [address]- 6004 March, [facility] [address] [id number] [place] [address]- 4922 March, [facility] [address] [id number] [place] [address]- 4659 March, Sialadenitis 527.2 [facility] [address] [id number] [place] [address]- 6103 Feb, [facility] [address] [id number] [place] [address]- 9328 Feb, [facility] [address] [id number] [place] [address]- 9001 Feb, [facility] [address] [id number] [place] [address]- 4083 Feb, [facility] [place] [facility] [address] [id number] [place] [address]- 2753 Feb, [facility] [address] [id number] [place] [address]- 2935 Jan, 2014 [facility] [place] [facility] [address] [id number] [place] [address]- 0028 Jan, 2014 [facility] [place] [facility] [address] [id number] [place] [address]- 4171 Jan, 2014 [facility] [place] [facility] [address] [id number] [place] [address]- 7108 Jan, 2014 [facility] [place] [facility] [address] [id number] [place] [address]- 2065 Jan, 2014 [facility] [place] [facility] [address] [id number] [place] [address]- 2888 Jan, [facility] [place] [facility] [address] [facility] [id number] [place] [address]- 3206 Dec, 2014 [facility] [place] [facility] [address] [facility] [id number] [place] [address]- 7911 Dec, 2014 [facility] [place] [facility] [address] [facility] [id number] [place] [address]- 9840 Dec, 2014 [facility] [place] [facility] [address] [facility] [id number] [place] [address]- 0821 Dec, 2014 [facility] [place] [facility] [address] [facility] [id number] [place] [address]- 3352 Dec, [facility] [place] [facility] [address] [facility] [id number] [place] [address]- 5242 Dec, 2014 [facility] [place] [facility] [address] [id number] [place] [address]- 4129 Nov, [facility] [place] [facility] [address] [id number] [place] [address]- 9597 Nov, [facility] [place] [facility] [address] [facility] [id number] [place] [address]- 9439 Nov, [facility] [place] [facility] [address] [facility] [id number] [place] [address]- 2439 Nov, [facility] [place] [facility] [address] [id number] [place] [address]- 7014 Nov, [facility] [place] [facility] [address] [id number] [place] [address]- 1771 Nov, [facility] [place] [facility] [address] [id number] [place] [address]- 9284 Nov, [facility] [place] [facility] [address] [id number] [place] [address]- 3021 Nov, [facility] [place] [facility] [address] [id number] [place] [address]- 8051 Nov, [facility] [place] [facility] [address] [id number] [place] [address]- 8587 Nov, [facility] [place] [facility] [address] [id number] [place] [address]- 0566 Nov, [facility] [place] [facility] [address] [id number] [place] [address]- 3238 Nov, [facility] [place] [facility] [address] [id number] [place] [address]- 6311 Nov, [facility] [place] [facility] [address] [id number] [place] [address]- 7464 Nov, [facility] [place] [facility] [address] [id number], [place] [address]- 2723 Oct, [facility] [place] [facility] [address] [id number], [place] [address]- 9015 Oct, [facility] [place] [facility] [address] [id number] [place] [address]- 4449 Oct, [facility] [place] [facility] [address] [id number] [place] [address]- 1571 Oct, [facility] [place] [facility] [address] [id number] [place] [address]- 2430 Oct, [facility] [place] [facility] [address] [id number] [place] [address]- 1450 17 Oct, 2014 [facility] [place] [facility] [address] [id number] [place] [address]- 8753 17 Oct, 2014 [facility] [place] [facility] [address] [id number] [place] [address]- 4241 Oct, [facility] [place] [facility] [address] [id number] [place] [address]- 4147 Oct, [facility] [place] [facility] [address] [id number] [place] [address]- 3498 Sep, [facility] [place] [facility] [address] [id number] [place] [address]- 8985 Sep, [facility] [place] [facility] [address] [id number] [place] [address]- 3595 Sep, [facility] [place] [facility] [address] [id number] [place] [address]- 5593 Sep, [facility] [place] [facility] [address] [id number] [place] [address]- 5745 Sep, [facility] [place] [facility] [address] [id number] [place] [address]- 0715 Sep, [facility] [place] [facility] [address] [id number] [place] [address]- 3661 Sep, [facility] [place] [facility] [address] [id number] [place] [address]- 6002 Sep, [facility] [place] [facility] [address] [id number] [place] [address]- 9191 Sep, [facility] [place] [facility] [address] [id number] [place] [address]- 6640 Sep, [facility] [place] [facility] [address] [id number] [place] [address]- 7401 Sep, [facility] [place] [facility] [address] [id number] [place] [address]- 0240 Sep, [facility] [place] [facility] [address] [id number] [place] [address]- 1250 30 Aug, 2014 [facility] [place] [facility] [address] [id number] [place] [address]- 2697 30 Aug, 2014 [facility] [place] [facility] [address] [id number] [place] [address]- 2685 29 Aug, 2014 [facility] [place] [facility] [address] [id number] [place] [address]- 3238 Aug, [facility] [place] [facility] [address] [id number] [place] [address]- 1484 Aug, [facility] [place] [facility] [address] [id number] [place] [address]- 1533 Aug, [facility] [place] [facility] [address] [id number] [place] [address]- 5991 Aug, [facility] [place] [facility] [address] [id number] [place] [address]- 2152 17 Aug, 2014 [facility] [place] [facility] [address] [id number] [place] [address] 30 Jul, 2013 [facility] [place] [facility] [address] [id number] [place] [address] 30 Jul, 2013 [facility] [place] [facility] [address] [id number] [place] [address] 30 Sep, 2013 [facility] [place] [facility] [address] [id number] [place] [address] 30 Sep, 2013 [facility] [place] [facility] [address] [id number] [place] [address]- [address] 25 Sep, 2013 [facility] [place] [facility] [address] [id number] [place] [address]- [address] 25 Sep, 2013 [facility] [place] [facility] [address] [id number] [place] [address] 15 Sep, 2013 [facility] [place] [facility] [address] [id number] [place] [address] Jul, [facility] [place] [facility] [address] [id number] [place] [address] Jul, [facility] [place] [facility] [address] [id number] [place] [address] Jul, [facility] [place] [facility] [address] [id number] [place] [address] Jun, [facility] [place] [facility] [address] [id number] [place] [address]- [address] Jun, [facility] [place] [facility] [address] [id number] [place] [address]- [address] Jun, [facility] [place] [facility] [address] [id number] [place] [address]- [address] Jun, [facility] [place] [facility] [address] [id number] [place] [address] Jun, [facility] [place] [facility] [address] [id number] [place] [address]- 40[address] Jun, [facility] [place] [facility] [address] [id number] [place] [address] Jun, [facility] [place] [facility] [address] [id number] [place] [address]- [address] Jun, [facility] [place] [facility] [address] [id number] [place] [address] Jun, [facility] [place] [facility] [address] [id number] [place] [address]- [address]99 Jun, [facility] [place] [facility] [address] [id number] [place] [address]- [address] Jun, [facility] [place] [facility] [address] [id number] [place] [address]- [address] Jun, [facility] [place] [facility] [address] [id number] [place] [address] Jun, [facility] [place] [facility] [address] [id number] [place] [address] Jun, [facility] [place] [facility] [address] [id number] [place] [address] Jun, [facility] [place] [facility] [address] [id number] [place] [address]- [address] Jun, [facility] [place] [facility] [address] [id number] [place] [address]- [address] Jun, [facility] [place] [facility] [address] [id number] [place] [address] Jun, [facility] [place] [facility] [address] [id number] [place] [address] Jun, [facility] [place] [facility] [address] [id number] [place] [address]- [address] Jun, [facility] [place] [facility] [address] [id number] [place] [address] Jun, [facility] [place] [facility] [address] [id number] [place] [address]- [address] Jun, [facility] [place] [facility] [address] [id number] [place] [address]99 May, [facility] [place] [facility] [address] [id number] [place] [address] 39[address] May, [facility] [place] [facility] [address] [id number] [place] [address]- [address] May, [facility] [place] [facility] [address] [id number] [place] [address] May, [facility] [place] [facility] [address] [id number] [place] [address]- [address] May, [facility] [place] [facility] [address] [id number] [place] [address]- [address] May, [facility] [place] [facility] [address] [id number] [place] [address] May, [facility] [place] [facility] [address] [id number] [place] [address]- 89[address] May, 2013 [facility] [place] [facility] [address] [id number] [place] [address]- [address] May, [facility] [place] [facility] [address] [id number] [place] [address] May, [facility] [place] [facility] [address] [id number] [place] [address] 6728 May, [facility] [place] [facility] [address] [id number] [place] [address] 4353 May, [facility] [place] [facility] [address] [id number] [place] [address] 8854 May, [facility] [place] [facility] [address] [id number] [place] [address]- 9168 Apr, [facility] [place] [facility] [address] [id number] [place] [address]- 7140 Apr, [facility] [place] [facility] [address] [id number] [place] [address]- 9199 Apr, [facility] [place] [facility] [address] [id number] [place] [address]- 2617 Apr, [facility] [place] [facility] [address] [id number] [place] [address] 1959 Apr, [facility] [place] [facility] [address] [id number] [place] [address]- 4231 Apr, [facility] [place] [facility] [address] [id number] [place] [address]- 9884 Apr, [facility] [place] [facility] [address] [id number] [place] [address]- 6295 Apr, [facility] [place] [facility] [address] [id number] [place] [address]- 7566 Apr, [facility] [place] [facility] [address] [id number] [place] [address]- 0267 March, [facility] [address] [id number] [place] [address]- 8149 March, [facility] [place] [facility] [address] [id number] [place] [address]- 5276 March, [facility] [address] [id number] [place] [address]- 4270 March, [facility] [place] [facility] [address] [id number] [place] [address]- 5952 March, [facility] [place] [facility] [address] [id number] [place] [address]- 2652 March, [facility] [address] [id number] [place] [address]- 3241 March, [facility] [address] [id number] [place] [address]- 9233 March, [facility] [place] [facility] [address] [id number] [place] [address]- 0732 March, [facility] [address] [id number] [place] [address]- 5753 March, [facility] [place] [facility] [address] [id number] [place] [address]- 8222 March, [facility] [place] [facility] [address] [id number] [place] [address]- 9400 March, [facility] [place] [facility] [address] [id number] [place] [address]- 6804 March, [facility] [place] [facility] [address] [id number] [place] [address]- 1409 March, [facility] [place] [facility] [address] [id number] [place] [address] 4169 March, [facility] [place] [facility] [address] [id number] [place] [address]- 1592 March, [facility] [place] [facility] [address] [id number] [place] [address]- 3184 March, [facility] [place] [facility] [address] [id number] [place] [address]- 9983 March, [facility] [place] [facility] [address] [id number] [place] [address]- 5978 March, [facility] [place] [facility] [address] [id number] [place] [address]- 7152 March, [facility] [place] [facility] [address] [id number] [place] [address]- 3531 Feb, [facility] [place] [facility] [address] [id number] [place] [address] 1953 Feb, [facility] [place] [facility] [address] [id number] [place] [address]- 9111 Feb, [facility] [place] [facility] [address] [id number] [place] [address]- 2102 Feb, [facility] [place] [facility] [address] [id number] [place] [address]- 7481 Feb, [facility] [place] [facility] [address] [id number] [place] [address]- 5805 Feb, [facility] [place] [facility] [address] [id number] [place] [address]- 8192 Feb, [facility] [place] [facility] [address] [id number] [place] [address]- 7220 Feb, [facility] [place] [facility] [address] [id number] [place] [address]- 0769 Jan, [facility] [place] [facility] [address] [id number] [place] [address]- 4195 Jan, [facility] [place] [facility] [address] [id number] [place] [address]- 4131 Jan, [facility] [place] [facility] [address] [id number] [place] [address]- 7938 24 Jan, 2014 [facility] [place] [facility] [address] [id number] [place] [address]- 6607 Jan, [facility] [place] [facility] [address] [id number] [place] [address]- 7391 Jan, [facility] [place] [facility] [address] [id number] [place] [address]- 8743 Jan, [facility] [place] [facility] [address] [id number] [place] [address]- 8583 Jan, [facility] [place] [facility] [address] [id number] [place] [address]- 9438 Jan, [facility] [place] [facility] [address] [id number] [place] [address]- 9375 Jan, [facility] [place] [facility] [address] [facility] [id number] [place] [address]- 8695 Dec, [facility] [place] [facility] [address] [id number] [place] [address]- 6352 Dec, [facility] [place] [facility] [address] [id number] [place] [address]- 5428 Dec, [facility] [place] [facility] [address] [facility] [id number] [place] [address] 3041 2013 [facility] [place] [facility] [address] [facility] [id number] [place] [address]- 3158 2013 [facility] [place] [facility] [address] [id number] [place] [address]- 7845 Dec, [facility] [place] [facility] [address] [id number] [place] [address]- 1902 Dec, [facility] [place] [facility] [address] [facility] [id number] [place] [address]- 2051 Dec, [facility] [place] [facility] [address] [facility] [id number] [place] [address]- 9148 Nov, [facility] [place] [facility] [address] [id number] [place] [address]- 1220 29 Nov, 2013 [facility] [place] [facility] [address] [id number] [place] [address]- 6622 Nov, [facility] [place] [facility] [address] [id number] [place] [address]- 6830 Nov, [facility] [place] [facility] [address] [id number] [place] [address]- 0187 Nov, [facility] [place] [facility] [address] [id number] [place] [address]- 0078 Nov, [facility] [place] [facility] [address] [id number] [place] [address]- 8544 Nov, [facility] [place] [facility] [address] [id number] [place] [address]- 2559 Nov, [facility] [place] [facility] [address] [id number] [place] [address]- 3005 Nov, [facility] [place] [facility] [address] [id number] [place] [address]- 2180 Nov, [facility] [place] [facility] [address] [id number] [place] [address]- 0878 Nov, [facility] [place] [facility] [address] [id number] [place] [address]- 1148 Nov, [facility] [place] [facility] [address] [id number] [place] [address]- 7342 Nov, [facility] [place] [facility] [address] [id number] [place] [address]- 6363 Oct, [facility] [place] [facility] [address] [id number] [place] [address]- 2325 Oct, [facility] [place] [facility] [address] [id number] [place] [address]- 1858 Oct, [facility] [place] [facility] [address] [id number] [place] [address]- 3693 Oct, [facility] [address] [id number] [place] [address] Oct, [facility] [place] [facility] [address] [id number] [place] [address]- 9605 Oct, [facility] [place] [facility] [address] [id number] [place] [address]- 4917 Oct, [facility] [place] [facility] [address] [id number] [place] [address]- 7700 Oct, [facility] [place] [facility] [address] [id number] [place] Oct, [facility] [place] [facility] [address] [id number] [place] [address]- 5200 Oct, [facility] [place] [facility] [address] [id number] [place] [address]- 4686 Oct, [facility] [place] [facility] [address] [id number] [place] [address]- 1709 Oct, [facility] [place] [facility] [address] [id number] [place] [address]- 5854 Oct, [facility] [place] [facility] [address] [id number] [place] [address]- 0228 Oct, [facility] [place] [facility] [address] [id number], [place] [address]- 1363 14 Sep, 2013 [facility] [place] [facility] [address] [id number], [place] [address]- 8732 14 Sep, 2013 [facility] [place] [facility] [address] [id number] [place] [address]- 8300 Sep, [facility] [place] [facility] [address] [id number], [place] [address]- 0909 05 Sep, 2013 [facility] [place] [facility] [address] [facility] [id number], [place] [address]- 7282 Sep, [facility] [place] [facility] [address] [id number] [place] [address]- 0462 Sep, [facility] [place] [facility] [address] [id number] [place] [address]- 1639 Sep, [facility] [place] [facility] [address] [id number] [place] [address]- 5906 Sep, [facility] [place] [facility] [address] [id number] [place] [address]- 7080 Sep, [facility] [place] [facility] [address] [id number] [place] [address]- 1889 Sep, [facility] [place] [facility] [address] [id number] [place] [address]- 1553 Aug, [facility] [place] [facility] [address] [id number] [place] [address]- 8520 Aug, [facility] [place] [facility] [address] [id number] [place] [address]- 2235 Aug, [facility] [place] [facility] [address] [id number] [place] [address]- 5256 Aug, [facility] [place] [facility] [address] [id number] [place] [address]- 7641 Aug, [facility] [place] [facility] [address] [id number] [place] [address]- 1615 Aug, [facility] [place] [facility] [address] [id number] [place] [address]- 3925 Aug, [facility] [place] [facility] [address] [id number], [place] [address]- 6561 Aug, [facility] [place] [facility] [address] [id number] [place] [address]- 7898 Aug, [facility] [place] [facility] [address] [id number] [place] [address]- 6662 Aug, [facility] [place] [facility] [address] [id number], [place] [address]- 2229 18 Aug, 2013 [facility] [place] [facility] [address] [id number] [place] [address]- 6630 18 Aug, 2013 [facility] [place] [facility] [address] [id number] [place] [address]- 6694 18 Aug, 2013 [facility] [place] [facility] [address] [id number] [place] [address]- 1234 18 Aug, 2013 [facility] [place] [facility] [address] [id number] [place] [address]- 0398 17 Aug, 2013 [facility] [place] [facility] [address] [id number] [place] [address]- 0760 14 Aug, 2013 [facility] [place] [facility] [address] [id number] [place] [address]- 4333 14 Aug, 2013 [facility] [place] [facility] [address] [id number] [place] [address]- 4383 Aug, [facility] [place] [facility] [address] [id number] [place] [address]- 9091 20 Jul, 2013 [facility] [place] [facility] [address] [id number] [place] [address]- 2421 19 Jul, 2013 [facility] [place] [facility] [address] [id number] [place] [address]- 4845 18 Jul, 2013 [facility] [place] [facility] [address] [id number] [place] [address]- 4794 11 Jul, 2013 [facility] [place] [facility] [address] [id number] [place] [address]- 0496 11 Jul, 2013 [facility] [place] [facility] [address] [id number] [place] [address]- 2145 Jun, [facility] [place] [facility] [address] [id number] [place] [address]- 3588 Jun, [facility] [place] [facility] [address] [id number] [place] [address]- 5007 Jun, [facility] [place] [facility] [address] [id number] [place] [address]- 0872 Jun, [facility] [place] [facility] [address] [id number] [place] [address]- 4686 Jun, [facility] [place] [facility] [address] [id number] [place] [address]- 8163 Jun, [facility] [place] [facility] [address] [id number] [place] [address]- 7881 Jun, [facility] [place] [facility] [address] [id number] [place] [address]- 3785 Jun, [facility] [place] [facility] [address] [id number] [place] [address]- 7744 Jun, [facility] [place] [facility] [address] [id number] [place] [address]- 7280 Jun, [facility] [place] [facility] [address] [id number] [place] [address]- 0574 May, [facility] [place] [facility] [address] [id number] [place] [address]- 0652 May, [facility] [place] [facility] [address] [id number] [place] [address]- 6998 May, [facility] [place] [facility] [address] [id number] [place] [address]- 9816 May, [facility] [place] [facility] [address] [id number] [place] [address]- 7944 May, [facility] [place] [facility] [address] [id number] [place] [address]- 2067 May, [facility] [place] [facility] [address] [id number] [place] [address]- 7012 May, [facility] [place] [facility] [address] [id number] [place] [address]- 2969 May, [facility] [place] [facility] [address] [id number] [place] [address]- 6013 May, [facility] [place] [facility] [address] [id number] [place] [address]- 7279 Apr, [facility] [address] [id number] [place] [address]- 3354 Apr, [facility] [address] [id number] [place] [address]- 9218 Apr, [facility] [address] [id number] [place] [address]- 9776 Apr, [facility] [address] [id number] [place] [address]- 7234 Apr, [facility] [address] [id number] [place] [address]- 5971 Apr, [facility] [address] [id number] [place] [address]- 4913 Apr, [facility] [address] [id number] [place] [address]- 5818 March, [facility] [address] [id number] [place] [address]- 8174 Feb, [facility] [address] [id number] [place] [address]- 0750 Feb, [facility] [address] [id number] [place] [address]- 0224 Feb, [facility] [address] [id number] [place] [address]- 3372 Jan, [facility] [address] [id number] [place] [address]- 4728 Jan, [facility] [address] [id number] [place] [address]- 3881 19 Jan, 2013 [facility] [address] [id number] [place] [address]- 5020 14 Jan, 2013 [facility] [address] [id number] [place] [address]- 1306 12 Jan, 2013 [facility] [address] [id number] [place] [address]- 3510 08 Jan, 2013 [facility] [place] [facility] [address] [id number] [place] [address]- 3536 07 Jan, 2013 [facility] [place] [facility] [address] [id number] [place] [address]- 3407 04 Jan, 2013 [facility] [place] [facility] [address] [id number] [place] [address]- 3426 28 Dec, 2012 [facility] [address] [id number] [place] [address]- 8461 25 Dec, 2012 [facility] [place] [facility] [address] [id number] [place] [address]- 4806 13 Dec, 2012 [facility] [place] [facility] [address] [id number] [place] [address]- 5216 Dec, [facility] [place] [facility] [address] [id number] [place] [address]- 4906 07 Dec, 2012 [facility] [place] [facility] [address] [id number] [place] [address]- 9796 06 Dec, 2012 [facility] [place] [facility] [address] [id number] [place] [address]- 6726 05 Dec, 2012 [facility] [place] [facility] [address] [id number] [place] [address]- 1347 31 Nov, 2012 [facility] [place] [facility] [address] [id number] [place] [address]- 6861 24 Nov, 2012 [facility] [place] [facility] [address] [id number] [place] [address]- 0826 18 Nov, 2012 [facility] [place] [facility] [address] [id number] [place] [address]- 6156 15 Nov, 2012 [facility] [place] [facility] [address] [id number] [place] [address]- 2056 10 Nov, 2012 [facility] [place] [facility] [address] [id number] [place] [address]- 8946 Nov, [facility] [address] [id number] [place] [address]- 5017 Nov, [facility] [address] [id number] [place] [address]- 7718 Oct, [facility] [address] [id number] [place] [address]- 9476 Oct, [facility] [address] [id number] [place] [address]- 5727 Oct, [facility] [address] [id number] [place] [address]- 8847 Oct, [facility] [address] [id number] [place] [address]- 4251 Oct, [facility] [address] [id number] [place] [address]- 5104 Oct, [facility] [address] [id number] [place] [address]- 1982 Oct, [facility] [address] [id number] [place] [address]- 4019 Oct, [facility] [address] [id number] [place] [address]- 6974 05 Oct, 2012 [facility] [address] [id number] [place] [address] Oct, [facility] [address] [id number] [place] [address] Oct, [facility] [address] [id number] [place] [address] Oct, [facility] [address] [id number] [place] [address] Sep, [facility] [address] [id number] [place] [address] Sep, [facility] [place] [facility] [address] [id number] [place] [address] Sep, [facility] [place] [facility] [address] [id number] [place] [address] Sep, [facility] [place] [facility] [address] [id number] [place] [address] Sep, [facility] [place] [facility] [address] [id number] [place] [address] Sep, [facility] [place] [facility] [address] [id number] [place] [address] Sep, [facility] [place] [facility] [address] [id number] [place] [address] Sep, [facility] [place] [facility] [address] [facility] [id number] [place] [address] Sep, [facility] [place] [facility] [address] [id number], [place] [address] Sep, [facility] [place] [facility] [address] [id number], [place] [address] Sep, [facility] [place] [facility] [address] [id number], [place] [address] Aug, [facility] [place] [facility] [address] [facility] [id number], [place] [address] Aug, [facility] [place] [facility] [address] [id number], [place] [address] Aug, [facility] [place] [facility] [address] [id number], [place] [address] Aug, [facility] [place] [facility] [address] [id number], [place] [address] Aug, [facility] [place] [facility] [address] [id number] [address] Aug, [facility] [place] [facility] [address] [id number], [place] [address] Aug, [facility] [place] [facility] [address] [id number] [place] [address] Aug, [facility] [place] [facility] [address] [id number] [place] [address] Aug, [facility] [place] [facility] [address] [id number] [place] [address] Aug, [facility] [place] [facility] [address] [id number] [place] [address] Jul, [facility] [place] [facility] [address] [id number] [place] [address] Jul, [facility] [place] [facility] [address] [id number] [place] [address] Jul, [facility] [place] [facility] [address] [id number] [place] [address] Jul, [facility] [place] [facility] [address] [id number] [place] [address] Jun, [facility] [place] [facility] [address] [id number] [place] [address] Jun, [facility] [place] [facility] [address] [id number] [place] [address] Jun, [facility] [place] [facility] [address] [id number] [place] [address] Jun, [facility] [place] [facility] [address] [id number] [place] [address] Jun, [facility] [place] [facility] [address] [id number] [place] [address] Jun, [facility] [place] [facility] [address] [id number] [place] [address] Jun, [facility] [place] [facility] [address] [id number] [place] [address] May, [facility] [place] [facility] [address] [id number] [place] [address] May, [facility] [place] [facility] [address] [id number] [place] [address] May, [facility] [place] [facility] [address] [id number] [place] [address] May, [facility] [place] [facility] [address] [id number] [place] [address] May, [facility] [place] [facility] [address] [id number] [place] [address] Apr, [facility] [place] [facility] [address] [id number] [place] [address] Apr, [facility] [place] [facility] [address] [id number] [place] [address] Apr, [facility] [place] [facility] [address] [id number] [place] [address] Apr, [facility] [address] [id number] [place] [address] Apr, [facility] [place] [facility] [address] [id number] [place] [address] March, [facility] [place] [facility] [address] [id number] [place] [address] March, [facility] [place] [facility] [address] [id number] [place] [address] March, [facility] [place] [facility] [address] [id number] [place] [address]- [address] March, [facility] [place] [facility] [address] [id number] [place] [address] March, [facility] [place] [facility] [address] [id number] [place] [address]- [address] March, [facility] [place] [facility] [address] [id number] [place] [address]- [address] March, [facility] [address] [id number] [place] [address]- [address] March, [facility] [place] [facility] [address] [id number] [place] [address] March, [facility] [place] [facility] [address] [id number] [place] [address]- [address] March, [facility] [place] [facility] [address] [id number] [place] [address] 8087 Feb, [facility] [place] [facility] [address] [id number] [place] [address]- [address]98 Feb, [facility] [place] [facility] [address] [id number] [place] [address]- [address] Feb, [facility] [place] [facility] [address] [id number] [place] [address] Feb, [facility] [place] [facility] [address] [id number] [place] [address] Feb, [facility] [place] [facility] [address] [id number] [place] [address]- [address] Feb, [facility] [place] [facility] [address] [id number] [place] [address]- [address] Feb, [facility] [place] [facility] [address] [id number] [place] [address]- [address] Feb, [facility] [place] [facility] [address] [id number] [place] [address]- [address] Feb, [facility] [place] [facility] [address] [id number] [place] [address]- [address] Jan, [facility] [place] [facility] [address] [id number] [place] [address] Jan, [facility] [place] [facility] [address] [id number] [place] [address] Jan, [facility] [place] [facility] [address] [id number] [place] [address] Jan, [facility] [address] [id number] [place] [address] Dec, [facility] [place] [facility] [address] [id number] [place] [address] Dec, [facility] [place] [facility] [address] [id number] [place] [address] Nov, [facility] [place] [facility] [address] [id number] [place] [address] Nov, [facility] [place] [facility] [address] [id number] [place] [address] Nov, [facility] [place] [facility] [address] [id number] [place] [address] Nov, [facility] [address] [id number] [place] [address] Nov, [facility] [place] [facility] [address] [id number] [place] [address] Oct, [facility] [place] [facility] [address] [id number] [place] [address] Oct, [facility] [place] [facility] [address] [id number] [place] [address] Oct, [facility] [place] [facility] [address] [id number] [place] [address] Oct, [facility] [place] [facility] [address] [id number] [place] [address] Oct, [facility] [place] [facility] [address] [id number] [place] [address] Oct, [facility] [place] [facility] [address] [id number] [place] [address] Oct, [facility] [place] [facility] [address] [id number] [place] [address] Oct, [facility] [address] [facility] [id number] [place] [address] Sep, IMMUNIZATIONS No Known Immunizations SOCIAL HISTORY Never Assessed REASON FOR VISIT Controlled Med Refill PLAN OF CARE VITAL SIGNS MEDICATIONS Medication Instructions Dosage Frequency Start Date End Date Duration Status MS Contin 30 MG Orally every 12 hrs 1 tablet 12h 07 Oct, 2017 30 days Active RESULTS No Results PROCEDURES No Known procedures INSTRUCTIONS MEDICATIONS ADMINISTERED No Known Medications MEDICAL (GENERAL) HISTORY Type Description Date 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
--- OUTSIDE RECORDS SUMMARY | 2018-05-05 05:23 | XMS REPORT ---
Author Author SHAHNAZ MARQUEZ [facility] Address [address] [place] [address] Care Team Providers Care Dog Obedience Instructor Name Role Phone SHAHNAZ MARQUEZ Unavailable PROBLEMS Type Condition ICD9-CM Code FVU66-HE Code Onset Dates Condition Status SNOMED Code Problem Other chronic pain G89.29 Active 12843519 Problem Type 2 diabetes mellitus without complication, without long-term current use of insulin E11.9 Active 703852636 Problem Low back pain M54.5 Active 971701418 Problem Hypertension I10 Active 07203046 Problem Coronary artery disease I25.10 Active 88789269 Problem Hyperlipidemia E78.5 Active 34031143 Problem Peripheral vascular disease I73.9 Active 647950740 Problem Insomnia G47.00 Active 785568815 Problem Reactive depression F32.9 Active 13291443 Problem Ventral hernia without obstruction or gangrene K43.9 Active 695490563 Problem Anxiety F41.9 Active 08128965 Problem Pharyngeal dysphagia R13.13 Active [id number] ALLERGIES No Information ENCOUNTERS Encounter Location Date Diagnosis [facility] [id number] [place] [address] 26785- 7023 March, [facility] [id number] [place] [address] 04689- 6470 March, [facility] [id number] [place] [address] 84871- 4462 Feb, [facility] [address] [address]- 7081 Feb, Other chronic pain G89.29 Via [facility] [address] [facility] [place] [id number] Feb, Other chronic pain G89.29 and Anxiety F41.9 [facility] [address] [address] 2546 Feb, [facility] [address] [id number] [address] 6480 Jan, [facility] [address] [id number] [address] 7906 Jan, [facility] [address] [id number] [address] 0166 Jan, [facility] [address] [id number] [address] 0742 Jan, [facility] [address] [id number] [address] 5762 Dec, Via [employer] [facility] [employer] [address] [place] [id number] Dec, Peripheral vascular disease I73.9 ; 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 ; Other chronic pain G89.29 ; Anxiety F41.9 ; Reactive depression F32.9 ; Insomnia G47.00 and Type 2 diabetes mellitus without complication, without long-term current use of insulin E11.9 [facility] [address] [id number] [place] [address] Nov [facility] [id number] [address] Nov, Anxiety F41.9 [facility] [address] [facility] [id number] [address] Nov, [facility] [id number] [address] Nov, Anxiety F41.9 Via [employer] [address] [facility] [place] [id number] Nov, Status post surgery Z98.890 ; Confused R41.0 ; Anxiety F41.9 and Other chronic pain G89.29 [facility] [address] [id number] [id number] Nov, Other chronic pain G89.29 [facility] [address] [id number] [address] 2546 Oct, [facility] [address] [id number] [address] Oct, Other chronic pain G89.29 [facility] [address] [facility] [id number] [address] 2546 Oct, Anxiety F41.9 [facility] [id number] [place] [id number] Sep, Other chronic pain G89.29 [facility] [address] [id number][place] [address] Sep, Via [employer] [address] [place] [id number] Aug, Dysuria R30.0 and Anxiety F41.9 [facility] [address]00565100[place] [address] 2546 Aug, [facility] [id number] [place] [address] [id number] Aug, Other chronic pain G89.29 [facility] [address] [place] [address] 11848- 4846 Jul, Other chronic pain G89.29 [facility] [address] [id number][place] [id number] Jun, [facility] [id number] [place] [address] [id number] Jun, Other chronic pain G89.29 [facility] [address] [facility] [id number] [address] Jun, [facility] [address] [facility] [id number], [place] [address] 2886 May, Other chronic pain G89.29 [facility] [address] [facility] [id number][place] [address] 2546 Apr, Other chronic pain G89.29 [facility] [employer] [address] [place] [id number] Apr, Reactive depression F32.9 and Pharyngeal dysphagia R13.13 [facility] [address]00565100[place], [place] [address] 6[address] Apr, Urinary tract infection without hematuria, site unspecified N39.0 [facility] [address]00565100[place] [address] 0165 March, Other chronic pain G89.29 [facility] [id number] [place] [address] 10708- 6331 Feb, Other chronic pain G89.29 [facility] [id number] [place] [address] 90885- 3773 Feb, [facility] [id number] [place] [address] [id number] Feb, Via [facility] [employer] [address] [place] [id number] Feb, Dysuria R30.0 and Ventral hernia without obstruction or gangrene K43.9 [facility] [address] [place] [address] 73354- 6055 Jan, Other chronic pain G89.29 [place] [id number] [place] [address] [id number] Dec, Other chronic pain G89.29 [facility] [address] [place] [address] 20654- 5739 Nov, Other chronic pain G89.29 [facility] [employer] [address] [place] [id number] Nov, Lymphadenitis I88.9 [facility] [address] [place] [address] 29262- 2677 Nov, Other chronic pain G89.29 [facility] [address] [place] [address] 45766- 9476 Nov, [facility] [id number] [place] [address] [id number] Nov, Other chronic pain G89.29 [facility] [employer] [address] [place] [id number] Oct, Low back pain M54.5 ; Hypertension I10 and Type 2 diabetes mellitus without complication, without long-term current use of insulin E11.9 [facility] [address] [id number] [address]- 4286 Oct, [facility] [address] [facility] [id number] [place] [address] 23419- 5572 Oct, [facility] [address] [facility] [id number] [place] [address] 96582- 3736 Oct, [facility] [address] [facility] [id number] [place] [address] 21001- 3124 Oct, [facility] [id number] [place] [address] 84784- 9595 Sep, [facility] [id number] [place] [address] 30622- 4898 Sep, [facility] [id number] [place] [address] 97791- 3088 Aug, Other chronic pain G89.29 [facility] [address] [place] [address] 11784- 2542 Jul, [facility] [address] [id number] [address]- 7397 Jul, [facility] [address] [place] [address] 75600- 2545 Jul, [facility] [address] [facility] [id number] [place] [address] 45197- 2541 Jun, [facility] [address] [place] [address] 27784- 2548 Jun, [facility] [employer] [address] [place] [id number] Jun, Low back pain M54.5 ; Other chronic pain G89.29 and Coronary artery disease I25.10 [facility] [address] [facility] [id number] [address]- 0983 Jun, [facility] [address] [facility] [id number] [address]- 5816 May, [facility] [address] [facility] [id number] [address]- 3736 May, [facility] [id number] [place] [address] 55925- 4196 May, Other chronic pain G89.29 [facility] [address] [facility] [id number] [address]- 4549 May, [facility] [address] [place] [address] 72277- 2137 Apr, [facility] [address] [address]- 1756 Apr, Acute cystitis without hematuria N30.00 [facility] [address], [place] [address]- 2390 16 Apr, 2016 Acute cystitis without hematuria N30.00 ; Coronary artery disease I25.10 ; Low back pain M54.5 and Other chronic pain G89.29 [facility] [address]005[address] [address]- 2007 Apr, Other chronic pain G89.29 [facility] [address]005[address] [address]- 5670 March, Other chronic pain G89.29 [facility] [address] [address]- 3136 18 Feb, 2016 [facility] [address] [address]- 6553 Feb, Arthritis M19.90 [facility] [address], [place] [address]- 5089 Feb, [facility] [address] [address]- 6211 Jan, [facility] [address] [address]- 0665 Jan, [facility] [address] [place] [address] 14226- 0657 Jan, Other chronic pain G89.29 [facility] [id number] [place] [address] 38705- 2616 Jan, Hypertension I10 ; Coronary artery disease I25.10 and Insomnia G47.00 [facility] [address] [place] [address] 30511- 6692 Jan, [facility] [id number] [place] [address] 06784- 7417 Dec, Right hip pain M25.551 [facility] [id number] [place] [address] 13044- 9028 Dec, [facility] [address] [address]- 2382 Dec, [facility] [address] [place] [address] 66971- 6898 Dec, [facility] [address] [address]- 7576 Dec, Other chronic pain G89.29 [facility] [address] [address]- 1856 Dec, [facility] [address] [address] 2547 Nov, [facility] [address] [address] 2540 Nov, Other chronic pain G89.29 [facility] [address] [address]- 2548 Nov, Right hip pain M25.551 and Coronary artery disease I25.10 [facility] [address] [address]- 0052 Nov, Other chronic pain G89.29 [facility] [id number] [place] [address] 88916- 3380 Oct, [facility] [id number] [place] [address] 32367- 3243 Oct, [facility] [id number] [place] [address] 42284- 5997 Sep, [facility] [id number] [place] [address] 01788- 5436 Sep, [facility] [id number] [place] [address] 80985- 3965 Aug, [facility] [id number] [place] [address] 12732- 1484 Aug, Hypertension I10 ; Coronary artery disease I25.10 and Arthritis M19.90 [facility] [id number] [place] [address] 05311- 4917 Jun, [facility] [id number] [place] [address] 49020- 7395 Jun, Essential hypertension, benign 401.1 ; Other chronic pain 338.29 and Chronic airway obstruction, not elsewhere classified 496 [facility] [address] [address]- 5909 Jun, [facility] [address] [address]- 4713 Jun, [facility] [id number] [place] [address] 31489- 7730 Jun, [facility] [address] [address]- 2356 May, [facility] [address] [address]- 6723 May, [facility] [address] [id number] [place] [address]- 3444 Apr, [facility] [address] [id number] [place] [address]- 0146 Apr, [facility] [address] [id number] [place] [address]- 3748 Apr, [facility] [address] [id number] [place] [address]- 0235 March, [facility] [address] [id number] [place] [address]- 5072 March, [facility] [address] [id number] [place] [address]- 7862 March, [facility] [address] [id number] [place] [address]- 7037 March, [facility] [address] [id number] [place] [address]- 7816 March, Sialadenitis 527.2 [facility] [address] [id number] [place] [address]- 0226 Feb, [facility] [address] [id number] [place] [address]- 9790 Feb, [facility] [address] [id number] [place] [address]- 9189 Feb, [facility] [address] [id number] [place] [address]- 4809 14 Feb, 2015 [facility] [address] [id number] [place] [address]- 3924 Feb, [facility] [address] [id number] [place] 3549 Jan, [facility] [address] [id number] [place] 8106 Jan, [facility] [address] [id number] [place] [address]- 3244 Jan, [facility] [place] [facility] [address] [id number] [place] [address]- 2951 Jan, [facility] [place] [facility] [address] [id number] [place] [address]- 2727 Jan, [facility] [place] [facility] [address] [id number] [place] [address]- 3592 Jan, [facility] [place] [facility] [address] [id number] [place] [address]- 3105 Dec, 2014 [facility] [place] [facility] [address] [id number] [place] [address]- 1561 Dec, 2014 [facility] [place] [facility] [address] [id number] [place] [address]- 8396 Dec, 2014 [facility] [place] [facility] [address] [id number] [place] [address]- 9677 Dec, 2014 [facility] [place] [facility] [address] [id number] [place] [address]- 7175 Dec, [facility] [place] [facility] [address] [id number] [place] [address]- 6762 Dec, [facility] [place] [facility] [address] [facility] [id number] [place] [address]- 1438 Nov, [facility] [place] [facility] [address] [id number] [place] [address]- 5249 Nov, [facility] [place] [facility] [address] [id number] [place] [address]- 4471 Nov, [facility] [place] [facility] [address] [id number] [place] [address]- 6428 Nov, [facility] [place] [facility] [address] [id number] [place] [address]- 7812 Nov, [facility] [place] [facility] [address] [id number] [place] [address]- 6906 Nov, [facility] [place] [facility] [address] [id number] [place] [address]- 0501 Nov, [facility] [address] [id number] [place] [address]- 3102 Nov, [facility] [place] [facility] [address] [id number] [place] [address]- 4505 Nov, [facility] [address] [id number] [place] [address]- 1276 Nov, [facility] [address] [id number] [place] [address]- 8140 Nov, [facility] [address] [id number] [place] [address]- 9286 Nov, [facility] [address] [id number] [place] [address]- 4146 Nov, [facility] [address] [id number] [place] [address]- 6286 Nov, [facility] [address] [id number] [place] [address]- 6085 Oct, [facility] [address] [id number] [place] [address]- 3196 Oct, [facility] [place] [facility] [address] [id number] [place] [address]- 4407 Oct, [facility] [place] [facility] [address] [id number] [place] [address]- 2565 18 Oct, 2014 [facility] [place] [facility] [address] [id number] [place] [address]- 5270 18 Oct, 2014 [facility] [place] [facility] [address] [id number] [place] [address]- 6601 17 Oct, 2014 [facility] [place] [facility] [address] [id number] [place] [address]- 0158 17 Oct, 2014 [facility] [place] [facility] [address] [id number] [place] [address]- 8565 Oct, [facility] [place] [facility] [address] [id number] [place] [address]- 3991 Oct, [facility] [place] [facility] [address] [id number] [place] [address]- 0779 Sep, [facility] [place] [facility] [address] [id number] [place] [address]- 0278 Sep, [facility] [place] [facility] [address] [id number] [place] [address]- 4825 Sep, [facility] [place] [facility] [address] [id number] [place] [address]- 7634 Sep, [facility] [place] [facility] [address] [id number] [place] [address]- 3034 Sep, [facility] [place] [facility] [address] [id number] [place] [address]- 6952 Sep, [facility] [place] [facility] [address] [id number] [place] [address]- 8880 Sep, [facility] [place] [facility] [address] [id number] [place] [address]- 8550 Sep, [facility] [place] [facility] [address] [id number] [place] [address]- 7629 Sep, [facility] [place] [facility] [address] [id number] [address]- 1802 Sep, [facility] [place] [facility] [address] [id number][place] [address]- 8390 Sep, [facility] [place] [facility] [address] [id number] [place] [address]- 9258 Sep, [facility] [place] [facility] [address] [id number] [place] [address]- 2051 Aug, [facility] [place] [facility] [address] [id number] [place] [address]- 2041 Aug, [facility] [place] [facility] [address] [id number] [place] [address]- 1442 29 Aug, 2013 [facility] [place] [facility] [address] [id number] [place] [address]- 8174 29 Aug, 2014 [facility] [place] [facility] [address] [id number] [place] [address]- 8734 28 Aug, 2014 [facility] [place] [facility] [address] [id number] [place] [address]- 8633 28 Aug, 2014 [facility] [place] [facility] [address] [id number] [place] [address]- 5[address] 17 Aug, 2014 [facility] [place] [facility] [address] [id number] [place] [address] 17 Aug, 2013 [facility] [place] [facility] [address] [id number] [place] [address] 30 Jul, 2013 [facility] [place] [facility] [address] [id number] [place] [address] 30 Sep, 2013 [facility] [place] [facility] [address] [id number] [place] [address] 30 Sep, 2013 [facility] [place] [facility] [address] [id number] [place] [address] 30 Sep, 2013 [facility] [place] [facility] [address] [id number] [place] [address] 25 Sep, 2013 [facility] [place] [facility] [address] [id number] [place] [address] 25 Sep, 2013 [facility] [place] [facility] [address] [id number] [place] [address] 15 Sep, 2013 [facility] [place] [facility] [address] [id number] [place] [address] 15 Sep, 2013 [facility] [place] [facility] [address] [id number] [place] [address] 11 Sep, 2013 [facility] [place] [facility] [address] [id number] [place] [address] Jul, [facility] [place] [facility] [address] [id number] [place] [address] Jun, [facility] [place] [facility] [address] [id number] [place] [address] Jun, [facility] [place] [facility] [address] [id number] [place] [address] Jun, [facility] [place] [facility] [address] [id number] [place] [address] Jun, [facility] [place] [facility] [address] [id number] [place] [address] Jun, [facility] [place] [facility] [address] [id number] [place] [address] Jun, [facility] [place] [facility] [address] [id number] [place] [address] Jun, [facility] [place] [facility] [address] [id number] [place] [address] Jun, [facility] [place] [facility] [address] [id number] [place] [address] Jun, [facility] [place] [facility] [address] [id number] [place] [address]- [address] Jun, [facility] [place] [facility] [address] [id number] [place] [address] Jun, [facility] [place] [facility] [address] [id number] [place] [address] Jun, [facility] [place] [facility] [address] [id number] [place] [address]- [address] Jun, [facility] [place] [facility] [address] [id number] [place] [address]69 Jun, [facility] [place] [facility] [address] [id number] [place] [address] Jun, [facility] [place] [facility] [address] [id number] [place] [address] Jun, [facility] [place] [facility] [address] [id number] [place] [address]- [address] Jun, [facility] [place] [facility] [address] [id number] [place] [address] Jun, [facility] [place] [facility] [address] [id number] [place] [address]- [address] Jun, [facility] [place] [facility] [address] [id number] [place] [address] Jun, [facility] [place] [facility] [address] [id number] [place] [address] Jun, [facility] [place] [facility] [address] [id number] [place] [address]- [address] Jun, [facility] [place] [facility] [address] [id number] [place] [address] May, [facility] [place] [facility] [address] [id number] [place] [address] May, [facility] [place] [facility] [address] [id number] [place] [address] May, [facility] [place] [facility] [address] [id number] [place] [address]- 269[address] May, [facility] [place] [facility] [address] [id number] [place] [address] May, [facility] [place] [facility] [address] [id number] [place] [address]- [address] May, [facility] [place] [facility] [address] [id number] [place] [address]- [address] May, [facility] [place] [facility] [address] [id number] [place] [address]- [address] May, [facility] [place] [facility] [address] [id number] [place] [address] May, [facility] [place] [facility] [address] [id number] [place] [address]- [address] May, [facility] [place] [facility] [address] [id number] [place] [address]- [address] May, [facility] [place] [facility] [address] [id number] [place] [address] May, [facility] [place] [facility] [address] [id number] [place] [address] 0480 May, [facility] [place] [facility] [address] [id number] [place] [address]- 1520 Apr, [facility] [place] [facility] [address] [id number] [place] [address]- 4197 Apr, [facility] [place] [facility] [address] [id number] [place] [address] 9253 Apr, [facility] [place] [facility] [address] [id number] [place] [address]- 1019 Apr, [facility] [place] [facility] [address] [id number] [place] [address]- 2093 Apr, [facility] [place] [facility] [address] [id number] [place] [address]- 3294 Apr, [facility] [place] [facility] [address] [id number] [place] [address] 1925 Apr, [facility] [place] [facility] [address] [id number] [place] [address]- 8446 Apr, [facility] [place] [facility] [address] [id number] [place] [address]- 9136 Apr, [facility] [place] [facility] [address] [id number] [place] [address] 3565 March, [facility] [place] [facility] [address] [id number] [place] [address]- 6563 March, [facility] [place] [facility] [address] [id number] [place] [address]- 3459 March, [facility] [address] [id number] [place] [address]- 7910 March, [facility] [place] [facility] [address] [id number] [place] [address]- 8900 March, [facility] [place] [facility] [address] [id number] [place] [address]- 9294 March, [facility] [place] [facility] [address] [id number] [place] [address]- 7017 March, [facility] [place] [facility] [address] [id number] [place] [address]- 2458 March, [facility] [place] [facility] [address] [id number] [place] [address]- 0061 March, [facility] [place] [facility] [address] [id number] [place] [address]- 2926 March, [facility] [place] [facility] [address] [id number] [place] [address]- 9059 March, [facility] [place] [facility] [address] [id number] [place] [address]- 3855 March, [facility] [place] [facility] [address] [id number] [place] [address]- 5963 March, [facility] [place] [facility] [address] [id number] [place] [address]- 6219 March, [facility] [place] [facility] [address] [id number] [place] [address]- 0053 March, [facility] [place] [facility] [address] [id number] [place] [address]- 7961 March, [facility] [place] [facility] [address] [id number] [place] [address]- 5843 March, [facility] [place] [facility] [address] [id number] [place] [address] 1958 March, [facility] [place] [facility] [address] [id number] [place] [address]- 1331 March, [facility] [place] [facility] [address] [id number] [place] [address]- 3542 March, [facility] [place] [facility] [address] [id number] [place] [address]- 0052 Feb, [facility] [place] [facility] [address] [id number] [place] [address]- 6165 Feb, [facility] [place] [facility] [address] [id number] [place] [address]- 2372 Feb, [facility] [place] [facility] [address] [id number] [place] [address]- 1517 Feb, [facility] [place] [facility] [address] [id number] [place] [address]- 0246 Feb, [facility] [place] [facility] [address] [id number] [place] [address]- 2444 Feb, [facility] [place] [facility] [address] [id number] [place] [address]- 3098 Feb, [facility] [place] [facility] [address] [id number] [place] [address]- 8868 Feb, [facility] [place] [facility] [address] [id number] [place] [address]- 5673 Jan, [facility] [place] [facility] [address] [id number] [place] [address]- 6380 Jan, [facility] [place] [facility] [address] [id number] [place] [address]- 5025 24 Jan, 2014 [facility] [place] [facility] [address] [id number] [place] [address]- 9882 24 Jan, 2014 [facility] [place] [facility] [address] [id number] [place] [address]- 4718 Jan, [facility] [place] [facility] [address] [id number] [place] [address] 13 Jan, 2014 [facility] [place] [facility] [address] [id number] [place] [address]- 0883 Jan, [facility] [place] [facility] [address] [id number] [place] [address]- 8467 Jan, [facility] [place] [facility] [address] [id number] [place] [address]- 4799 Jan, [facility] [place] [facility] [address] [id number] [place] [address]- 0510 Jan, [facility] [place] [facility] [address] [id number] [place] [address]- 9763 Dec, [facility] [place] [facility] [address] [id number] [place] [address]- 8961 Dec, [facility] [place] [facility] [address] [id number] [place] [address]- 1344 Dec, [facility] [place] [facility] [address] [id number] [place] [address]- 0947 Dec, [facility] [place] [facility] [address] [id number] [place] [address]- 4409 Dec, [facility] [place] [facility] [address] [id number] [place] [address]- 5738 Dec, [facility] [place] [facility] [address] [id number] [place] [address]- 4794 Dec, [facility] [place] [facility] [address] [id number] [place] [address]- 5148 Dec, [facility] [place] [facility] [address] [id number] [place] [address]- 5657 Nov, [facility] [place] [facility] [address] [id number] [place] [address]- 8280 Nov, [facility] [place] [facility] [address] [id number] [place] [address]- 0290 Nov, [facility] [place] [facility] [address] [id number] [place] [address]- 8758 Nov, [facility] [address] [id number] [place] [address]- 7822 Nov, [facility] [place] [facility] [address] [id number] [place] [address]- 7781 Nov, [facility] [address] [id number] [place] [address]- 0151 Nov, [facility] [place] [facility] [address] [id number] [place] [address]- 9833 Nov, [facility] [place] [facility] [address] [id number] [place] [address]- 6266 Nov, [facility] [place] [facility] [address] [id number] [place] [address]- 5065 Nov, [facility] [address] [id number] [place] [address]- 5055 Nov, [facility] [place] [facility] [address] [id number] [place] [address]- 3554 Nov, [facility] [place] [facility] [address] [id number] [place] [address]- 2335 Nov, [facility] [address] [id number] [place] [address]- 3664 Oct, [facility] [place] [facility] [address] [id number] [place] [address]- 8097 Oct, [facility] [place] [facility] [address] [id number] [place] [address]- 8689 Oct, [facility] [place] [facility] [address] [id number] [place] [address]- 7784 Oct, [facility] [place] [facility] [address] [id number] [place] [address]- 8428 Oct, [facility] [place] [facility] [address] [id number] [place] [address]- 0523 Oct, [facility] [place] [facility] [address] [id number] [place] [address]- 3751 Oct, [facility] [address] [id number] [place] [address]- 6532 Oct, [facility] [address] [id number] [place] [address]- 6442 Oct, [facility] [address] [id number] [place] [address]- 0131 Oct, [facility] [address] [id number] [place] [address]- 1168 Oct, [facility] [address] [id number] [place] [address]- 1427 Oct, [facility] [address] [id number] [place] [address]- 2370 Oct, [facility] [address] [id number] [place] [address]- 7143 Oct, [facility] [address] [id number] [place] [address]- 1203 Sep, [facility] [address] [id number] [place] [address]- 5210 Sep, [facility] [address] [id number] [place] [address]- 4170 Sep, [facility] [place] [facility] [address] [id number] [place] [address]- 4249 Sep, [facility] [place] [facility] [address] [id number] [place] [address]- 9709 Sep, [facility] [place] [facility] [address] [id number] [place] [address]- 6434 Sep, [facility] [place] [facility] [address] [id number] [place] [address]- 6436 Sep, [facility] [place] [facility] [address] [id number] [place] [address]- 9340 Sep, [facility] [place] [facility] [address] [id number] [place] [address]- 8836 Sep, [facility] [place] [facility] [address] [id number] [place] [address]292 Sep, [facility] [place] [facility] [address] [id number] [place] [address]- 8414 Aug, [facility] [place] [facility] [address] [id number] [place] [address]- 6267 Aug, [facility] [place] [facility] [address] [id number] [place] [address]- 8442 Aug, [facility] [place] [facility] [address] [id number] [place] [address]- 1553 Aug, [facility] [place] [facility] [address] [id number][place] [address]- 8995 Aug, [facility] [place] [facility] [address] [id number][place] [address]- 5330 Aug, [facility] [place] [facility] [address] [id number] [place] [address]- 5885 Aug, [facility] [place] [facility] [address] [id number] [place] [address]- 2774 Aug, [facility] [place] [facility] [address] [id number][place] [address]- 9662 Aug, [facility] [place] [facility] [address] [id number][place] [address]- 0568 Aug, [facility] [place] [facility] [address] [id number] [place] [address]- 2494 Aug, [facility] [place] [facility] [address] [id number][place] [address]- 1033 Aug, [facility] [place] [facility] [address] [id number] [place] [address]- 2562 Aug, [facility] [place] [facility] [address] [id number] [place] [address]- 3702 18 Aug, 2013 [facility] [address] [id number] [place] [address]- 0604 17 Aug, 2013 [facility] [place] [facility] [address] [id number] [place] [address]- 6185 14 Aug, 2013 [facility] [address] [id number] [place] [address]- 5338 14 Aug, 2013 [facility] [place] [facility] [address] [id number] [place] [address]- 5010 01 Aug, 2013 [facility] [address] [id number] [place] [address]- 1151 20 Jul, 2013 [facility] [place] [facility] [address] [id number] [place] [address]- 9675 19 Jul, 2013 [facility] [place] [facility] [address] [id number] [place] [address]- 5710 18 Jul, 2013 [facility] [address] [id number] [place] [address]- 4785 11 Jul, 2013 [facility] [place] [facility] [address] [id number] [place] [address]- 6011 11 Jul, 2013 [facility] [address] [id number] [place] [address]- 6016 28 Jun, 2013 [facility] [place] [facility] [address] [id number] [place] [address]- 254 Jun, [facility] [place] [facility] [address] [id number] [place] [address]- 254 Jun, [facility] [place] [facility] [address] [id number] [place] [address]- 1709 15 Jun, 2013 [facility] [place] [facility] [address] [id number] [place] [address]- 2613 14 Jun, 2013 [facility] [place] [facility] [address] [id number] [place] [address]- 6245 Jun, [facility] [place] [facility] [address] [id number] [place] [address]- 7070 Jun, [facility] [place] [facility] [address] [id number] [place] [address]- 4997 Jun, [facility] [place] [facility] [address] [id number] [place] [address]- 2979 Jun, [facility] [place] [facility] [address] [id number] [place] [address]- 8619 Jun, [facility] [place] [facility] [address] [id number] [place] [address]- 8678 May, [facility] [place] [facility] [address] [id number] [place] [address]- 1006 May, [facility] [place] [facility] [address] [id number] [place] [address]- 8077 May, [facility] [place] [facility] [address] [id number] [place] [address]- 1911 May, [facility] [place] [facility] [address] [id number] [place] [address]- 7035 May, [facility] [place] [facility] [address] [id number] [place] [address]- 8777 May, [facility] [place] [facility] [address] [id number] [place] [address]- 3348 May, [facility] [place] [facility] [address] [id number] [place] [address]- 3669 May, [facility] [place] [facility] [address] [id number] [place] [address]- 2205 May, [facility] [place] [facility] [address] [id number] [place] [address]- 2205 Apr, [facility] [place] [facility] [address] [id number] [place]135 Apr, [facility] [place] [facility] [address] [id number] [address]- 2010 Apr, [facility] [address] [id number] [place] [address]- 6305 Apr, [facility] [address] [id number] [place] [address]- 0548 Apr, [facility] [address] [facility] [id number] [place] [address]- 7757 Apr, [facility] [address] [id number] [place] [address]- 9938 Apr, [facility] [address] [id number] [place] [address]- 1602 March, [facility] [address] [id number] [place] [address]- 1753 Feb, [facility] [address] [id number] [place] [address]- 7439 Feb, [facility] [address] [id number] [place] [address]- 0917 Feb, [facility] [address] [id number] [place] [address]- 0142 Jan, [facility] [address] [facility] [id number] [place] [address]- 2137 Jan, [facility] [address] [id number] [place] [address]- 8632 Jan, [facility] [place] [facility] [address] [id number], [place] [address]- 2635 14 Jan, 2013 [facility] [place] [facility] [address] [id number] [place] [address]- 7038 12 Jan, 2013 [facility] [place] [facility] [address] [facility] [id number] [place] [address]- 6368 08 Jan, 2013 [facility] [place] [facility] [address] [facility] [id number] [place] [address]- 6342 07 Jan, 2013 [facility] [place] [facility] [address] [id number] [place] [address]- 6261 Jan, [facility] [place] [facility] [address] [id number] [place] [address]- 6965 28 Dec, 2012 [facility] [place] [facility] [address] [id number] [place] [address]- 2546 25 Dec, 2012 [facility] [place] [facility] [address] [id number] [place] [address] 2546 13 Dec, 2012 [facility] [place] [facility] [address] [id number] [place] [address]- 3563 11 Dec, 2012 [facility] [place] [facility] [address] [id number] [place] [address]- 3186 07 Dec, 2012 [facility] [place] [facility] [address] [id number] [place] [address]- 7840 06 Dec, 2012 [facility] [place] [facility] [address] [id number] [place] [address]- 6387 05 Dec, 2012 [facility] [place] [facility] [address] [id number] [place] [address]- 2533 Nov, [facility] [place] [facility] [address] [id number] [place] [address]- 7227 24 Nov, 2012 [facility] [place] [facility] [address] [id number] [place] [address]- 3471 Nov, [facility] [place] [facility] [address] [id number], [place] [address]- 3732 15 Nov, 2012 [facility] [place] [facility] [address] [id number] [place] [address]- 8222 Nov, [facility] [place] [facility] [address] [id number] [place] [address]- 0407 10 Nov, 2012 [facility] [place] [facility] [address] [id number][place] [address]- 2970 02 Nov, 2012 [facility] [place] [facility] [address] [id number], [place] [address]- 3861 Oct, [facility] [place] [facility] [address] [id number] [place] [address]- 1156 Oct, [facility] [place] [facility] [address] [id number] [place] [address]- 6816 Oct, [facility] [place] [facility] [address] [facility] [id number] [place] [address]- 5386 Oct, [facility] [place] [facility] [address] [id number] [place] [address]- 0073 Oct, [facility] [place] [facility] [address] [id number] [place] [address]- 2541 Oct, [facility] [place] [facility] [address] [id number] [place] [address]- 5599 Oct, [facility] [place] [facility] [address] [id number] [place] [address]- 2172 Oct, [facility] [place] [facility] [address] [facility] [id number] [place] [address]- 7571 Oct, [facility] [place] [facility] [address] [facility] [id number] [place] [address] Oct, [facility] [place] [facility] [address] [facility] [id number] [place] [address] Oct, [facility] [place] [facility] [address] [facility] [id number] [place] [address] 1985 Oct, [facility] [place] [facility] [address] [id number] [place] [address] Sep, [facility] [place] [facility] [address] [id number] [place] [address] Sep, [facility] [place] [facility] [address] [facility] [id number] [place] [address] Sep, [facility] [place] [facility] [address] [facility] [id number] [place] [address]73 Sep, [facility] [place] [facility] [address] [id number] [place] [address] Sep, [facility] [place] [facility] [address] [id number] [place] [address] Sep, [facility] [place] [facility] [address] [id number] [place] [address] Sep, [facility] [place] [facility] [address] [id number] [place] [address]93 Sep, [facility] [place] [facility] [address] [id number] [place] [address] Sep, [facility] [place] [facility] [address] [id number] [place] [address] Sep, [facility] [place] [facility] [address] [id number] [place] [address]- [address] Sep, [facility] [place] [facility] [address] [id number] [place] [address] Aug, [facility] [place] [facility] [address] [id number] [place] [address] Aug, [facility] [place] [facility] [address] [id number] [place] [address] Aug, [facility] [place] [facility] [address] [facility] [id number] [place] [address] Aug, [facility] [place] [facility] [address] [id number] [place] [address]- [address] Aug, [facility] [place] [facility] [address] [id number] [place] [address]- [address]31 Aug, [facility] [place] [facility] [address] [id number] [place] [address]- 5616 Aug, [facility] [place] [facility] [address] [facility] [id number] [place] [address]- [address] Aug, [facility] [place] [facility] [address] [id number] [place] [address] Aug, [facility] [place] [facility] [address] [id number] [place] [address]- [address]387 Aug, [facility] [place] [facility] [address] [id number] [place] [address] Jul, [facility] [place] [facility] [address] [id number] [place] [address] Jul, [facility] [place] [facility] [address] [id number] [place] [address] 3794 Jul, [facility] [place] [facility] [address] [id number] [place] [address]- [address]117 Jul, [facility] [place] [facility] [address] [id number] [place] [address]- 45[address] Jun, [facility] [place] [facility] [address] [id number] [place] [address]- 7659 Jun, [facility] [place] [facility] [address] [id number] [place] [address]- 4685 Jun, [facility] [place] [facility] [address] [id number] [place] [address] 8930 Jun, [facility] [place] [facility] [address] [id number] [place] [address]- [address]358 Jun, [facility] [place] [facility] [address] [id number] [place] [address] 9152 Jun, [facility] [place] [facility] [address] [id number] [place] [address] 5746 Jun, [facility] [place] [facility] [address] [id number] [place] [address]24 May, [facility] [place] [facility] [address] [id number] [place] [address] May, [facility] [place] [facility] [address] [id number] [place] [address]- 3536 May, [facility] [place] [facility] [address] [id number] [place] [address]- 2440 May, [facility] [address] [id number] [place] [address]- 4587 May, [facility] [place] [facility] [address] [id number] [place] [address]- 8037 Apr, [facility] [place] [facility] [address] [id number] [place] [address]- [address]164 Apr, [facility] [place] [facility] [address] [id number] [place] [address]- 9900 Apr, [facility] [place] [facility] [address] [id number] [place] [address]- 7381 Apr, [facility] [place] [facility] [address] [id number] [place] [address]- 5946 Apr, [facility] [address] [id number] [place] [address]- [address] March, [facility] [address] [id number] [place] [address]- [address] March, [facility] [address] [id number] [place] [address]- 4617 March, [facility] [address] [id number] [place] [address]- [address]393 March, [facility] [place] [facility] [address] [id number] [place] [address]- 0703 March, [facility] [place] [facility] [address] [id number] [place] [address]- 0776 March, [facility] [place] [facility] [address] [id number] [place] [address]- 3566 March, [facility] [place] [facility] [address] [id number] [place] [address]- 7006 March, [facility] [place] [facility] [address] [id number] [place] [address]- 2556 March, [facility] [place] [facility] [address] [id number] [place] [address]- 3180 March, [facility] [address] [id number] [place] [address]- [address]83 30 Feb, 2012 [facility] [place] [facility] [address] [id number] [place] [address]- 6346 Feb, [facility] [place] [facility] [address] [id number] [place] [address]- 3685 Feb, [facility] [address] [id number] [place] [address]- 4570 Feb, [facility] [place] [facility] [address] [id number] [place] [address]- 0476 Feb, [facility] [address] [id number] [place] [address]- 4939 Feb, [facility] [address] [id number] [place] [address]- 0615 Feb, [facility] [place] [facility] [address] [id number] [place] [address]- 3935 Feb, [facility] [place] [facility] [address] [id number] [place] [address]- 0034 Feb, [facility] [place] [facility] [address] [id number] [place] [address]- 7078 Jan, [facility] [place] [facility] [address] [id number] [place] [address]- 9784 Jan, [facility] [place] [facility] [address] [id number] [place] [address]- 2936 Jan, [facility] [place] [facility] [address] [id number] [place] [address]- 7078 Jan, [facility] [place] [facility] [address] [id number] [place] [address]- 6[address] Dec, [facility] [place] [facility] [address] [id number] [place] [address] Dec, [facility] [address] [facility] [id number] [address] Nov, [facility] [address] [facility] [id number] [address]- 7986 Nov, [facility] [address] [facility] [id number][place] [address]- [address]69 Nov, [facility] [address] [facility] [id number], [place] [address] Nov, [facility] [address] [facility] [id number] [address] Nov, [facility] [address] [facility] [id number] [place] [address] Oct, [facility] [id number] [address] Oct, [facility] [id number] [address] Oct, [facility] [id number] [address] Oct, [facility] [id number] [address] Oct, [facility] [id number] [address] Oct, [facility] [address] [address] Oct, [facility] [address] [facility] [id number] [address] Oct, [facility] [id number] [address] Sep, IMMUNIZATIONS No Known Immunizations SOCIAL HISTORY Never Assessed REASON FOR VISIT Refill request PLAN OF CARE VITAL SIGNS MEDICATIONS Unknown Medications RESULTS No Results PROCEDURES No Known procedures INSTRUCTIONS MEDICATIONS ADMINISTERED No Known Medications
--- OUTSIDE RECORDS SUMMARY | 2018-05-05 05:25 | XMS REPORT ---
Author Author SHAHNAZ MARQUEZ [facility] Address [address] [place] [address] Care Team Providers Care Scheduler Name Role Phone SHAHNAZ MARQUEZ Unavailable PROBLEMS Type Condition ICD9-CM Code BEX20-ZU Code Onset Dates Condition Status SNOMED Code Problem Other chronic pain G89.29 Active 31450503 Problem Type 2 diabetes mellitus without complication, without long-term current use of insulin E11.9 Active 385471386 Problem Low back pain M54.5 Active 015353457 Problem Hypertension I10 Active 78364356 Problem Coronary artery disease I25.10 Active 02872723 Problem Hyperlipidemia E78.5 Active 58342592 Problem Peripheral vascular disease I73.9 Active 258063518 Problem Insomnia G47.00 Active 304120121 Problem Reactive depression F32.9 Active 72219971 Problem Ventral hernia without obstruction or gangrene K43.9 Active 316313821 Problem Anxiety F41.9 Active 75244091 Problem Pharyngeal dysphagia R13.13 Active [id number] ALLERGIES No Information ENCOUNTERS Encounter Location Date Diagnosis [facility] [id number] [place] [address] 94762- 9714 March, [facility] [id number] [place] [address] 05382- 3606 March, Other chronic pain G89.29 [facility] [id number] [place] [address] 14520- 4885 March, [facility] [id number] [place] [address] 46088- 3326 March, [facility] [id number] [place] [address] 22516- 2631 Feb, [facility] [id number] [place] [address] 07509- 2864 Feb, Other chronic pain G89.29 Via [facility] [address] [place] [id number] Feb, Other chronic pain G89.29 and Anxiety F41.9 [facility] [address], [place] [address] 3051 Feb, [facility] [address], [place] [address] 4765 Jan, [facility] [address], [place] [address] 8244 Jan, [facility] [id number] [place] [address] 67204- 7939 Jan, [facility] [address], [place] [address] 0540 Jan, [facility] [id number] [place] [address] 55838- 7585 Dec, Via [employer] [address] [place] [id number] Dec, Peripheral vascular disease I73.9 ; 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9 Via [facility] [employer] [address] [place] [id number] Nov, Status post surgery Z98.890 ; Confused R41.0 ; Anxiety F41.9 and Other chronic pain G89.29 [facility] [id number] [address] Nov, Other chronic pain G89.29 [facility] [address], [place] [address] 9356 Oct, [facility] [id number] [place] [address] [id number] Oct, Other chronic pain G89.29 [facility] [id number] [place] [address] 07638- 8066 Oct, Anxiety F41.9 [facility] [id number] [place] [id number] Sep, Other chronic pain G89.29 [facility] [id number] [place] [address] [id number] Sep, Via [facility] [address] [place] [id number] Aug, Dysuria R30.0 and Anxiety F41.9 [facility] [id number] [place] [address] 891766- 9450 Aug, [facility] [id number] [place] [address] [id number] Aug, Other chronic pain G89.29 [facility] [address] [place] [address] 44581- 7136 Jul, Other chronic pain G89.29 [facility] [id number] [id number] Jun, [facility] [id number] [place] [address] [id number] Jun, Other chronic pain G89.29 [facility] [address], [place] [address] 7257 Jun, [facility] [address] [place] [address] 30904- 4946 May, Other chronic pain G89.29 [facility] [address], [place] [address] 0988 Apr, Other chronic pain G89.29 Via [employer] [address] [place] [id number] Apr, Reactive depression F32.9 and Pharyngeal dysphagia R13.13 [facility] [id number] [place] [address] 67645- 8642 Apr, Urinary tract infection without hematuria, site unspecified N39.0 [facility] [address] [place] [address] 67847- 4043 March, Other chronic pain G89.29 [facility] [address] [place] [address] 14953- 8246 Feb, Other chronic pain G89.29 [facility] [id number] [place] [address] 08534- 8297 Feb, [facility] [id number] [place] [address] [id number] Feb, Via [employer] [address] [place] [id number] Feb, Dysuria R30.0 and Ventral hernia without obstruction or gangrene K43.9 [facility] [address], [place] [address] 7598 Jan, Other chronic pain G89.29 [facility] [id number] [place] [address] [id number] Dec, Other chronic pain G89.29 [facility] [address] [place] [address] 08619- 9407 Nov, Other chronic pain G89.29 [facility] [employer] [address] [place] [id number] Nov, Lymphadenitis I88.9 [facility] [address] [place] [address] 29080- 7122 Nov, Other chronic pain G89.29 [facility] [address] [facility] [id number], [place] [address]- 9527 Nov, [facility] [place] [facility] [id number] [place] [address] [id number] Nov, Other chronic pain G89.29 Via [facility] [address] [place] [id number] Oct, Low back pain M54.5 ; Hypertension I10 and Type 2 diabetes mellitus without complication, without long-term current use of insulin E11.9 [facility] [address] [facility] [id number], [place] [address] 6064 Oct, [facility] [address] [facility] [id number] [place] [address] 66540- 0990 Oct, [facility] [id number] [place] [address] 00477- 6822 Oct, [facility] [id number] [place] [address] 62532- 4683 Oct, [facility] [address] [facility] [id number], [place] [address]- 2203 Sep, [facility] [id number] [place] [address] 10195- 5831 Sep, [facility] [address] [id number], [place] [address]- 0487 Aug, Other chronic pain G89.29 [facility] [address] [facility] [id number], [place] [address]- 4303 Jul, [facility] [address] [facility] [id number], [place] [address]- 2561 Jul, [facility] [address] [facility] [id number][place] 8841 Jul, [facility] [address] [id number] [id number] 7909 Jun, [facility] [address], [place] [address]- 2216 15 Jun, 2016 [address] [facility] [address] [place] [id number] Jun, Low back pain M54.5 ; Other chronic pain G89.29 and Coronary artery disease I25.10 [facility] [address], [place] [address]- 8292 Jun, [facility] [id number] [place] [address] 53044- 8588 May, [facility] [id number] [place] [address] 26387- 6678 May, [facility] [id number] [place] [address] 96288- 0831 May, Other chronic pain G89.29 [facility] [id number] [place] [address] 38165- 3210 May, [facility] [address], [place] [address]- 3242 Apr, [facility] [id number] [place] [address] 02826- 6787 Apr, Acute cystitis without hematuria N30.00 [facility] [address], [place] [address]- 1375 16 Apr, 2016 Acute cystitis without hematuria N30.00 ; Coronary artery disease I25.10 ; Low back pain M54.5 and Other chronic pain G89.29 [facility] [address], [place] [address]- 4744 Apr, Other chronic pain G89.29 [facility] [id number] [place] [address] 93268- 6480 March, Other chronic pain G89.29 [facility] [address], [place] [address]- 4248 Feb, [facility] [address] [id number], [place] [address]- 4924 15 Feb, 2016 Arthritis M19.90 [facility] [id number] [place] [address] 42943- 6675 13 Feb, 2016 [facility] [id number] [place] [address] 30336- 7731 30 Jan, 2016 [facility] [id number] [place] [address] 48485- 7028 Jan, [facility] [id number] [place] [address] 81123- 6047 Jan, Other chronic pain G89.29 [facility] [id number] [place] [address] 65983- 5523 Jan, Hypertension I10 ; Coronary artery disease I25.10 and Insomnia G47.00 [facility] [id number] [place] [address] 87446- 2055 Jan, [facility] [id number] [place] [address] 47298- 9575 Dec, Right hip pain M25.551 [facility] [id number] [place] [address] 02768- 8283 Dec, [facility] [id number] [place] [address] 68739- 8277 Dec, [facility] [id number] [place] [address] 83086- 3637 Dec, [facility] [id number] [place] [address] 63299- 9291 Dec, Other chronic pain G89.29 [facility] [id number] [place] [address] 97448- 2737 Dec, [facility] [id number] [place] [address] 55615- 5994 Nov, [facility] [id number] [place] [address] 73113- 6837 Nov, Other chronic pain G89.29 [facility] [id number] [place] [address] 18333- 2968 Nov, Right hip pain M25.551 and Coronary artery disease I25.10 [facility] [id number] [place] [address] 21667- 1522 Nov, Other chronic pain G89.29 [facility] [id number] [place] [address] 75160- 7454 Oct, [facility] [id number] [place] [address] 02282- 6713 Oct, [facility] [id number] [place] [address] 68468- 0622 Sep, [facility] [id number] [place] [address] 06435- 0576 Sep, [facility] [id number] [place] [address] 14957- 0981 Aug, [facility] [id number] [place] [address] 41953- 5895 Aug, Hypertension I10 ; Coronary artery disease I25.10 and Arthritis M19.90 [facility] [id number] [place] [address] 39355- 4606 Jun, [facility] [id number] [place] [address] 34396- 6571 Jun, Essential hypertension, benign 401.1 ; Other chronic pain 338.29 and Chronic airway obstruction, not elsewhere classified 496 [facility] [id number] [place] [address] 31755- 7554 Jun, [facility] [id number] [place] [address] 68959- 9147 Jun, [facility] [id number] [place] [address] 36611- 1144 Jun, [facility] [address] [id number] [place] [address]- 1398 May, [facility] [address] [id number] [place] [address]- 1192 May, [facility] [address] [id number] [place] [address]- 5153 Apr, [facility] [address] [id number] [place] [address]- 6595 Apr, [facility] [address] [id number] [place] [address]- 8440 Apr, [facility] [address] [id number] [place] [address]- 2488 March, [facility] [address] [id number] [place] [address]- 4997 March, [facility] [address] [id number] [place] [address]- 3921 March, [facility] [address] [id number] [place] [address]- 3501 March, [facility] [address] [id number] [place] [address]- 3947 March, Sialadenitis 527.2 [facility] [address] [id number] [place] [address]- 0294 Feb, [facility] [address] [id number] [place] [address]- 4900 Feb, [facility] [address] [id number] [place] [address]- 8589 Feb, [facility] [address] [id number] [place] [address]- 2014 Feb, [facility] [place] [facility] [address] [id number] [place] [address]- 2078 Feb, [facility] [address] [id number] [place] [address]- 1233 Jan, 2014 [facility] [place] [facility] [address] [id number] [place] [address]- 4163 Jan, 2014 [facility] [place] [facility] [address] [id number] [place] [address]- 4726 Jan, 2014 [facility] [place] [facility] [address] [id number] [place] [address]- 4758 Jan, 2014 [facility] [place] [facility] [address] [id number] [place] [address]- 3735 Jan, 2014 [facility] [place] [facility] [address] [id number] [place] [address]- 1035 Jan, [facility] [place] [facility] [address] [facility] [id number] [place] [address]- 9837 Dec, 2014 [facility] [place] [facility] [address] [facility] [id number] [place] [address]- 7139 Dec, 2014 [facility] [place] [facility] [address] [facility] [id number] [place] [address]- 5123 Dec, 2014 [facility] [place] [facility] [address] [facility] [id number] [place] [address]- 6734 Dec, 2014 [facility] [place] [facility] [address] [facility] [id number] [place] [address]- 8068 Dec, [facility] [place] [facility] [address] [facility] [id number] [place] [address]- 5572 Dec, 2014 [facility] [place] [facility] [address] [id number] [place] [address]- 0313 Nov, [facility] [place] [facility] [address] [id number] [place] [address]- 9847 Nov, [facility] [place] [facility] [address] [facility] [id number] [place] [address]- 8109 Nov, [facility] [place] [facility] [address] [facility] [id number] [place] [address]- 4547 Nov, [facility] [place] [facility] [address] [id number] [place] [address]- 1155 Nov, [facility] [place] [facility] [address] [id number] [place] [address]- 5033 Nov, [facility] [place] [facility] [address] [id number] [place] [address]- 9737 Nov, [facility] [place] [facility] [address] [id number] [place] [address]- 5356 Nov, [facility] [place] [facility] [address] [id number] [place] [address]- 2341 Nov, [facility] [place] [facility] [address] [id number] [place] [address]- 1828 Nov, [facility] [place] [facility] [address] [id number] [place] [address]- 0561 Nov, [facility] [place] [facility] [address] [id number] [place] [address]- 3860 Nov, [facility] [place] [facility] [address] [id number] [place] [address]- 7413 Nov, [facility] [place] [facility] [address] [id number] [place] [address]- 4502 Nov, [facility] [place] [facility] [address] [id number], [place] [address]- 1697 Oct, [facility] [place] [facility] [address] [id number], [place] [address]- 5493 Oct, [facility] [place] [facility] [address] [id number] [place] [address]- 0915 Oct, [facility] [place] [facility] [address] [id number] [place] [address]- 3278 Oct, [facility] [place] [facility] [address] [id number] [place] [address]- 8304 Oct, [facility] [place] [facility] [address] [id number] [place] [address]- 7151 17 Oct, 2014 [facility] [place] [facility] [address] [id number] [place] [address]- 2247 17 Oct, 2014 [facility] [place] [facility] [address] [id number] [place] [address]- 8271 Oct, [facility] [place] [facility] [address] [id number] [place] [address]- 6842 Oct, [facility] [place] [facility] [address] [id number] [place] [address]- 8411 Sep, [facility] [place] [facility] [address] [id number] [place] [address]- 4571 Sep, [facility] [place] [facility] [address] [id number] [place] [address]- 8530 Sep, [facility] [place] [facility] [address] [id number] [place] [address]- 6005 Sep, [facility] [place] [facility] [address] [id number] [place] [address]- 6807 Sep, [facility] [place] [facility] [address] [id number] [place] [address]- 1598 Sep, [facility] [place] [facility] [address] [id number] [place] [address]- 8310 Sep, [facility] [place] [facility] [address] [id number] [place] [address]- 7629 Sep, [facility] [place] [facility] [address] [id number] [place] [address]- 4505 Sep, [facility] [place] [facility] [address] [id number] [place] [address]- 9681 Sep, [facility] [place] [facility] [address] [id number] [place] [address]- 0935 Sep, [facility] [place] [facility] [address] [id number] [place] [address]- 1599 Sep, [facility] [place] [facility] [address] [id number] [place] [address]- 7834 30 Aug, 2014 [facility] [place] [facility] [address] [id number] [place] [address]- 4211 30 Aug, 2014 [facility] [place] [facility] [address] [id number] [place] [address]- 8774 29 Aug, 2014 [facility] [place] [facility] [address] [id number] [place] [address]- 3756 Aug, [facility] [place] [facility] [address] [id number] [place] [address]- 2731 Aug, [facility] [place] [facility] [address] [id number] [place] [address]- 7022 Aug, [facility] [place] [facility] [address] [id number] [place] [address] Aug, [facility] [place] [facility] [address] [id number] [place] [address] 17 Aug, 2014 [facility] [place] [facility] [address] [id number] [place] [address] 30 Jul, 2013 [facility] [place] [facility] [address] [id number] [place] [address] 30 Jul, 2013 [facility] [place] [facility] [address] [id number] [place] [address] 30 Sep, 2013 [facility] [place] [facility] [address] [id number] [place] [address] 30 Sep, 2013 [facility] [place] [facility] [address] [id number] [place] [address] 25 Sep, 2013 [facility] [place] [facility] [address] [id number] [place] [address] 25 Sep, 2013 [facility] [place] [facility] [address] [id number] [place] [address] 15 Sep, 2013 [facility] [place] [facility] [address] [id number] [place] [address] Jul, [facility] [place] [facility] [address] [id number] [place] [address] Jul, [facility] [place] [facility] [address] [id number] [place] [address] Jul, [facility] [place] [facility] [address] [id number] [place] [address] Jun, [facility] [place] [facility] [address] [id number] [place] [address] Jun, [facility] [place] [facility] [address] [id number] [place] [address] Jun, [facility] [place] [facility] [address] [id number] [place] [address]- [address] Jun, [facility] [place] [facility] [address] [id number] [place] [address] Jun, [facility] [place] [facility] [address] [id number] [place] [address] Jun, [facility] [place] [facility] [address] [id number] [place] [address] Jun, [facility] [place] [facility] [address] [id number] [place] [address] Jun, [facility] [place] [facility] [address] [id number] [place] [address]- [address] Jun, [facility] [place] [facility] [address] [id number] [place] [address] 2867 Jun, [facility] [place] [facility] [address] [id number] [place] [address] Jun, [facility] [place] [facility] [address] [id number] [place] [address] Jun, [facility] [place] [facility] [address] [id number] [place] [address] Jun, [facility] [place] [facility] [address] [id number] [place] [address] Jun, [facility] [place] [facility] [address] [id number] [place] [address] Jun, [facility] [place] [facility] [address] [id number] [place] [address] Jun, [facility] [place] [facility] [address] [id number] [place] [address] Jun, [facility] [place] [facility] [address] [id number] [place] [address] Jun, [facility] [place] [facility] [address] [id number] [place] [address] Jun, [facility] [place] [facility] [address] [id number] [place] [address] Jun, [facility] [place] [facility] [address] [id number] [place] [address] Jun, [facility] [place] [facility] [address] [id number] [place] [address] Jun, [facility] [place] [facility] [address] [id number] [place] [address] May, [facility] [place] [facility] [address] [id number] [place] [address] May, [facility] [place] [facility] [address] [id number] [place] [address]- [address] May, [facility] [place] [facility] [address] [id number] [place] [address] May, [facility] [place] [facility] [address] [id number] [place] [address] May, [facility] [place] [facility] [address] [id number] [place] [address] May, [facility] [place] [facility] [address] [id number] [place] [address]- [address] May, [facility] [place] [facility] [address] [id number] [place] [address]- [address] May, 2013 [facility] [place] [facility] [address] [id number] [place] [address]- [address] May, [facility] [place] [facility] [address] [id number] [place] [address] May, [facility] [place] [facility] [address] [id number] [place] [address] 6180 May, [facility] [place] [facility] [address] [id number] [place] [address] 2624 May, [facility] [place] [facility] [address] [id number] [place] [address] 3234 May, [facility] [place] [facility] [address] [id number] [place] [address]- 9999 Apr, [facility] [place] [facility] [address] [id number] [place] [address]- 7876 Apr, [facility] [place] [facility] [address] [id number] [place] [address]- 0834 Apr, [facility] [place] [facility] [address] [id number] [place] [address] 7948 Apr, [facility] [place] [facility] [address] [id number] [place] [address]- 7925 Apr, [facility] [place] [facility] [address] [id number] [place] [address]- 9011 Apr, [facility] [place] [facility] [address] [id number] [place] [address]- 1591 Apr, [facility] [place] [facility] [address] [id number] [place] [address]- 6250 Apr, [facility] [place] [facility] [address] [id number] [place] [address]- 6544 Apr, [facility] [place] [facility] [address] [id number] [place] [address]- 5773 March, [facility] [address] [id number] [place] [address]- 5141 March, [facility] [place] [facility] [address] [id number] [place] [address]- 4706 March, [facility] [address] [id number] [place] [address]- 3743 March, [facility] [place] [facility] [address] [id number] [place] [address]- 1586 March, [facility] [place] [facility] [address] [id number] [place] [address] March, [facility] [address] [id number] [place] [address]- 0426 March, [facility] [address] [id number] [place] [address]- 4772 March, [facility] [place] [facility] [address] [id number] [place] [address]- 7487 March, [facility] [address] [id number] [place] [address]- 3485 March, [facility] [place] [facility] [address] [id number] [place] [address]- 1001 March, [facility] [place] [facility] [address] [id number] [place] [address]- 6800 March, [facility] [place] [facility] [address] [id number] [place] [address]- 5959 March, [facility] [place] [facility] [address] [id number] [place] [address]- 3733 March, [facility] [place] [facility] [address] [id number] [place] [address]- 8973 March, [facility] [place] [facility] [address] [id number] [place] [address]- 3483 March, [facility] [place] [facility] [address] [id number] [place] [address]- 4699 March, [facility] [place] [facility] [address] [id number] [place] [address]- 3616 March, [facility] [place] [facility] [address] [id number] [place] [address]- 9452 March, [facility] [place] [facility] [address] [id number] [place] [address]- 8702 March, [facility] [place] [facility] [address] [id number] [place] [address]- 7059 Feb, [facility] [place] [facility] [address] [id number] [place] [address]- 3666 Feb, [facility] [place] [facility] [address] [id number] [place] [address]- 4945 Feb, [facility] [place] [facility] [address] [id number] [place] [address]- 0956 Feb, [facility] [place] [facility] [address] [id number] [place] [address]- 0018 Feb, [facility] [place] [facility] [address] [id number] [place] [address]- 3689 Feb, [facility] [place] [facility] [address] [id number] [place] [address]- 6886 Feb, [facility] [place] [facility] [address] [id number] [place] [address]- 9996 Feb, [facility] [place] [facility] [address] [id number] [place] [address]- 8710 Jan, [facility] [place] [facility] [address] [id number] [place] [address]- 2659 Jan, [facility] [place] [facility] [address] [id number] [place] [address]- 5066 Jan, [facility] [place] [facility] [address] [id number] [place] [address]- 9610 24 Jan, 2014 [facility] [place] [facility] [address] [id number] [place] [address]- 0085 Jan, [facility] [place] [facility] [address] [id number] [place] [address]- 8623 Jan, [facility] [place] [facility] [address] [id number] [place] [address]- 8224 Jan, [facility] [place] [facility] [address] [id number] [place] [address]- 7326 Jan, [facility] [place] [facility] [address] [id number] [place] [address]- 2806 Jan, [facility] [place] [facility] [address] [id number] [place] [address]- 3641 Jan, [facility] [place] [facility] [address] [facility] [id number] [place] [address]- 0717 Dec, [facility] [place] [facility] [address] [id number] [place] [address]- 7768 Dec, [facility] [place] [facility] [address] [id number] [place] [address]- 1961 Dec, [facility] [place] [facility] [address] [facility] [id number] [place] [address]- 3651 2013 [facility] [place] [facility] [address] [facility] [id number] [place] [address]- 7195 2013 [facility] [place] [facility] [address] [id number] [place] [address]- 4160 Dec, [facility] [place] [facility] [address] [id number] [place] [address]- 5474 Dec, [facility] [place] [facility] [address] [facility] [id number] [place] [address]- 1116 Dec, [facility] [place] [facility] [address] [facility] [id number] [place] [address]- 4545 Nov, [facility] [place] [facility] [address] [id number] [place] [address]- 0331 29 Nov, 2013 [facility] [place] [facility] [address] [id number] [place] [address]- 8885 Nov, [facility] [place] [facility] [address] [id number] [place] [address]- 4160 Nov, [facility] [place] [facility] [address] [id number] [place] [address]- 9995 Nov, [facility] [place] [facility] [address] [id number] [place] [address]- 5555 Nov, [facility] [place] [facility] [address] [id number] [place] [address]- 9372 Nov, [facility] [place] [facility] [address] [id number] [place] [address]- 5289 Nov, [facility] [place] [facility] [address] [id number] [place] [address]- 4501 Nov, [facility] [place] [facility] [address] [id number] [place] [address]- 8910 Nov, [facility] [place] [facility] [address] [id number] [place] [address]- 6973 Nov, [facility] [place] [facility] [address] [id number] [place] [address]- 8949 Nov, [facility] [place] [facility] [address] [id number] [place] [address]- 2381 Nov, [facility] [place] [facility] [address] [id number] [place] [address]- 6240 Oct, [facility] [place] [facility] [address] [id number] [place] [address]- 0840 Oct, [facility] [place] [facility] [address] [id number] [place] [address]- 4201 Oct, [facility] [place] [facility] [address] [id number] [place] [address]- 7169 Oct, [facility] [address] [id number] [place] 3714 Oct, [facility] [place] [facility] [address] [id number] [place] [address]- 3537 Oct, [facility] [place] [facility] [address] [id number] [place] [address]- 5218 Oct, [facility] [place] [facility] [address] [id number] [place] [address]- 0604 Oct, [facility] [place] [facility] [address] [id number] [place] Oct, [facility] [place] [facility] [address] [id number] [place] [address]- 7993 Oct, [facility] [place] [facility] [address] [id number] [place] [address]- 4119 Oct, [facility] [place] [facility] [address] [id number] [place] [address]- 4615 Oct, [facility] [place] [facility] [address] [id number] [place] [address]- 8505 Oct, [facility] [place] [facility] [address] [id number] [place] [address]- 9864 Oct, [facility] [place] [facility] [address] [id number], [place] [address]- 9109 14 Sep, 2013 [facility] [place] [facility] [address] [id number], [place] [address]- 6308 14 Sep, 2013 [facility] [place] [facility] [address] [id number] [place] [address]- 8896 Sep, [facility] [place] [facility] [address] [id number], [place] [address]- 0028 05 Sep, 2013 [facility] [place] [facility] [address] [facility] [id number], [place] [address]- 1759 Sep, [facility] [place] [facility] [address] [id number] [place] [address]- 5292 Sep, [facility] [place] [facility] [address] [id number] [place] [address]- 2137 Sep, [facility] [place] [facility] [address] [id number] [place] [address]- 5446 Sep, [facility] [place] [facility] [address] [id number] [place] [address]- 5603 Sep, [facility] [place] [facility] [address] [id number] [place] [address]- 2641 Sep, [facility] [place] [facility] [address] [id number] [place] [address]- 6029 Aug, [facility] [place] [facility] [address] [id number] [place] [address]- 2103 Aug, [facility] [place] [facility] [address] [id number] [place] [address]- 6425 Aug, [facility] [place] [facility] [address] [id number] [place] [address]- 9575 Aug, [facility] [place] [facility] [address] [id number] [place] [address]- 9006 Aug, [facility] [place] [facility] [address] [id number] [place] [address]- 6786 Aug, [facility] [place] [facility] [address] [id number] [place] [address]- 0393 Aug, [facility] [place] [facility] [address] [id number], [place] [address]- 4990 Aug, [facility] [place] [facility] [address] [id number] [place] [address]- 6436 Aug, [facility] [place] [facility] [address] [id number] [place] [address]- 8059 Aug, [facility] [place] [facility] [address] [id number], [place] [address]- 2827 18 Aug, 2013 [facility] [place] [facility] [address] [id number] [place] [address]- 0016 18 Aug, 2013 [facility] [place] [facility] [address] [id number] [place] [address]- 1479 18 Aug, 2013 [facility] [place] [facility] [address] [id number] [place] [address]- 4279 18 Aug, 2013 [facility] [place] [facility] [address] [id number] [place] [address]- 9858 17 Aug, 2013 [facility] [place] [facility] [address] [id number] [place] [address]- 1684 14 Aug, 2013 [facility] [place] [facility] [address] [id number] [place] [address]- 2254 14 Aug, 2013 [facility] [place] [facility] [address] [id number] [place] [address]- 3560 Aug, [facility] [place] [facility] [address] [id number] [place] [address]- 1938 20 Jul, 2013 [facility] [place] [facility] [address] [id number] [place] [address]- 4238 19 Jul, 2013 [facility] [place] [facility] [address] [id number] [place] [address]- 1130 18 Jul, 2013 [facility] [place] [facility] [address] [id number] [place] [address]- 0863 11 Jul, 2013 [facility] [place] [facility] [address] [id number] [place] [address]- 2957 11 Jul, 2013 [facility] [place] [facility] [address] [id number] [place] [address]- 5120 Jun, [facility] [place] [facility] [address] [id number] [place] [address]- 1435 Jun, [facility] [place] [facility] [address] [id number] [place] [address]- 7642 Jun, [facility] [place] [facility] [address] [id number] [place] [address]- 0327 Jun, [facility] [place] [facility] [address] [id number] [place] [address]- 8056 Jun, [facility] [place] [facility] [address] [id number] [place] [address]- 5482 Jun, [facility] [place] [facility] [address] [id number] [place] [address]- 7577 Jun, [facility] [place] [facility] [address] [id number] [place] [address]- 4374 Jun, [facility] [place] [facility] [address] [id number] [place] [address]- 0046 Jun, [facility] [place] [facility] [address] [id number] [place] [address]- 1722 Jun, [facility] [place] [facility] [address] [id number] [place] [address]- 8471 May, [facility] [place] [facility] [address] [id number] [place] [address]- 3291 May, [facility] [place] [facility] [address] [id number] [place] [address]- 8442 May, [facility] [place] [facility] [address] [id number] [place] [address]- 1291 May, [facility] [place] [facility] [address] [id number] [place] [address]- 7828 May, [facility] [place] [facility] [address] [id number] [place] [address]- 2770 May, [facility] [place] [facility] [address] [id number] [place] [address]- 1600 May, [facility] [place] [facility] [address] [id number] [place] [address]- 9416 May, [facility] [place] [facility] [address] [id number] [place] [address]- 8641 May, [facility] [place] [facility] [address] [id number] [place] [address]- 7910 Apr, [facility] [address] [id number] [place] [address]- 0877 Apr, [facility] [address] [id number] [place] [address]- 8441 Apr, [facility] [address] [id number] [place] [address]- 9444 Apr, [facility] [address] [id number] [place] [address]- 3404 Apr, [facility] [address] [id number] [place] [address]- 5330 Apr, [facility] [address] [id number] [place] [address]- 1912 Apr, [facility] [address] [id number] [place] [address]- 6141 March, [facility] [address] [id number] [place] [address]- 0083 Feb, [facility] [address] [id number] [place] [address]- 2255 Feb, [facility] [address] [id number] [place] [address]- 6455 Feb, [facility] [address] [id number] [place] [address]- 6991 Jan, [facility] [address] [id number] [place] [address]- 8607 Jan, [facility] [address] [id number] [place] [address]- 1701 19 Jan, 2013 [facility] [address] [id number] [place] [address]- 7469 14 Jan, 2013 [facility] [address] [id number] [place] [address]- 4581 12 Jan, 2013 [facility] [address] [id number] [place] [address]- 2205 08 Jan, 2013 [facility] [place] [facility] [address] [id number] [place] [address]- 6106 07 Jan, 2013 [facility] [place] [facility] [address] [id number] [place] [address]- 9756 04 Jan, 2013 [facility] [place] [facility] [address] [id number] [place] [address]- 4216 28 Dec, 2012 [facility] [address] [id number] [place] [address]- 5220 25 Dec, 2012 [facility] [place] [facility] [address] [id number] [place] [address]- 2286 13 Dec, 2012 [facility] [place] [facility] [address] [id number] [place] [address]- 6976 Dec, [facility] [place] [facility] [address] [id number] [place] [address]- 4993 07 Dec, 2012 [facility] [place] [facility] [address] [id number] [place] [address]- 6459 06 Dec, 2012 [facility] [place] [facility] [address] [id number] [place] [address]- 9696 05 Dec, 2012 [facility] [place] [facility] [address] [id number] [place] [address]- 8276 31 Nov, 2012 [facility] [place] [facility] [address] [id number] [place] [address]- 0114 24 Nov, 2012 [facility] [place] [facility] [address] [id number] [place] [address]- 1546 18 Nov, 2012 [facility] [place] [facility] [address] [id number] [place] [address]- 6816 15 Nov, 2012 [facility] [place] [facility] [address] [id number] [place] [address]- 7006 10 Nov, 2012 [facility] [place] [facility] [address] [id number] [place] [address]- 0835 Nov, [facility] [address] [id number] [place] [address]- 2860 Nov, [facility] [address] [id number] [place] [address]- 4528 Oct, [facility] [address] [id number] [place] [address]- 5417 Oct, [facility] [address] [id number] [place] [address]- 5664 Oct, [facility] [address] [id number] [place] [address]- 8380 Oct, [facility] [address] [id number] [place] [address]- 5675 Oct, [facility] [address] [id number] [place] [address]- 0261 Oct, [facility] [address] [id number] [place] [address]- 9139 Oct, [facility] [address] [id number] [place] [address]- 6298 Oct, [facility] [address] [id number] [place] [address]- 3607 05 Oct, 2012 [facility] [address] [id number] [place] [address]- 9986 Oct, [facility] [address] [id number] [place] [address]- 9413 Oct, [facility] [address] [id number] [place] [address]- 3838 Oct, [facility] [address] [id number] [place] [address]- 9426 Sep, [facility] [address] [id number] [place] [address]- 9204 Sep, [facility] [place] [facility] [address] [id number] [place] [address] Sep, [facility] [place] [facility] [address] [id number] [place] [address] Sep, [facility] [place] [facility] [address] [id number] [place] [address] Sep, [facility] [place] [facility] [address] [id number] [place] [address] Sep, [facility] [place] [facility] [address] [id number] [place] [address] Sep, [facility] [place] [facility] [address] [id number] [place] [address] Sep, [facility] [place] [facility] [address] [facility] [id number] [place] [address] Sep, [facility] [place] [facility] [address] [id number], [place] [address] Sep, [facility] [place] [facility] [address] [id number], [place] [address] Sep, [facility] [place] [facility] [address] [id number], [place] [address] Aug, [facility] [place] [facility] [address] [facility] [id number], [place] [address] Aug, [facility] [place] [facility] [address] [id number], [place] [address] Aug, [facility] [place] [facility] [address] [id number], [place] [address] Aug, [facility] [place] [facility] [address] [id number], [place] [address] Aug, [facility] [place] [facility] [address] [id number] [address] Aug, [facility] [place] [facility] [address] [id number], [place] [address] Aug, [facility] [place] [facility] [address] [id number] [place] [address] Aug, [facility] [place] [facility] [address] [id number] [place] [address]- [address] Aug, [facility] [place] [facility] [address] [id number] [place] [address]186 Aug, [facility] [place] [facility] [address] [id number] [place] [address] Jul, [facility] [place] [facility] [address] [id number] [place] [address] Jul, [facility] [place] [facility] [address] [id number] [place] [address] Jul, [facility] [place] [facility] [address] [id number] [place] [address] Jul, [facility] [place] [facility] [address] [id number] [place] [address] Jun, [facility] [place] [facility] [address] [id number] [place] [address] Jun, [facility] [place] [facility] [address] [id number] [place] [address]17 Jun, [facility] [place] [facility] [address] [id number] [place] [address]- [address]35 Jun, [facility] [place] [facility] [address] [id number] [place] [address]- [address]34 Jun, [facility] [place] [facility] [address] [id number] [place] [address]- [address] Jun, [facility] [place] [facility] [address] [id number] [place] [address]- 47[address] Jun, [facility] [place] [facility] [address] [id number] [place] [address] May, [facility] [place] [facility] [address] [id number] [place] [address]- [address] May, [facility] [place] [facility] [address] [id number] [place] [address] May, [facility] [place] [facility] [address] [id number] [place] [address] May, [facility] [place] [facility] [address] [id number] [place] [address]- [address] May, [facility] [place] [facility] [address] [id number] [place] [address] Apr, [facility] [place] [facility] [address] [id number] [place] [address]- [address] Apr, [facility] [place] [facility] [address] [id number] [place] [address] Apr, [facility] [place] [facility] [address] [id number] [place] [address] Apr, [facility] [address] [id number] [place] [address]45 Apr, [facility] [place] [facility] [address] [id number] [place] [address]- [address] March, [facility] [place] [facility] [address] [id number] [place] [address]- [address] March, [facility] [place] [facility] [address] [id number] [place] [address]- [address]26 March, [facility] [place] [facility] [address] [id number] [place] [address] March, [facility] [place] [facility] [address] [id number] [place] [address]- [address] March, [facility] [place] [facility] [address] [id number] [place] [address]- [address]46 March, [facility] [place] [facility] [address] [id number] [place] [address] March, [facility] [address] [id number] [place] [address] March, [facility] [place] [facility] [address] [id number] [place] [address]- [address]101 March, [facility] [place] [facility] [address] [id number] [place] [address]- [address] March, [facility] [place] [facility] [address] [id number] [place] [address]- 4433 Feb, [facility] [place] [facility] [address] [id number] [place] [address]- [address]63 Feb, [facility] [place] [facility] [address] [id number] [place] [address]- 8215 Feb, [facility] [place] [facility] [address] [id number] [place] [address]- [address]606 Feb, [facility] [place] [facility] [address] [id number] [place] [address]- [address]26 Feb, [facility] [place] [facility] [address] [id number] [place] [address]- [address] Feb, [facility] [place] [facility] [address] [id number] [place] [address]- 8193 Feb, [facility] [place] [facility] [address] [id number] [place] [address]- [address] Feb, [facility] [place] [facility] [address] [id number] [place] [address]- [address]879 Feb, [facility] [place] [facility] [address] [id number] [place] [address]- [address] Jan, [facility] [place] [facility] [address] [id number] [place] [address]- [address]66 Jan, [facility] [place] [facility] [address] [id number] [place] [address]- [address]234 Jan, [facility] [place] [facility] [address] [id number] [place] [address]- 6243 Jan, [facility] [address] [id number] [place] [address]- 8106 Dec, [facility] [place] [facility] [address] [id number] [place] [address] 2546 Dec, [facility] [place] [facility] [address] [id number] [place] [address]- [address] Nov, [facility] [place] [facility] [address] [id number] [place] [address] 2546 Nov, [facility] [place] [facility] [address] [id number] [place] [address]- 6177 Nov, [facility] [place] [facility] [address] [id number] [place] [address]- [address]859 Nov, [facility] [address] [id number] [place] [address]- [address]64 Nov, [facility] [place] [facility] [address] [id number] [place] [address] Oct, [facility] [place] [facility] [address] [id number] [place] [address] Oct, [facility] [place] [facility] [address] [id number] [place] [address] Oct, [facility] [place] [facility] [address] [id number] [place] [address] Oct, [facility] [place] [facility] [address] [id number] [place] [address] Oct, [facility] [place] [facility] [address] [id number] [place] [address] Oct, [facility] [place] [facility] [address] [id number] [place] [address] Oct, [facility] [place] [facility] [address] [id number] [place] [address] Oct, [facility] [address] [facility] [id number] [place] [address] Sep, IMMUNIZATIONS No Known Immunizations SOCIAL HISTORY Never Assessed REASON FOR VISIT Refill request PLAN OF CARE VITAL SIGNS MEDICATIONS Medication Instructions Dosage Frequency Start Date End Date Duration Status Ativan 0.5 MG Orally every 8 hours, PRN 1 tablet as needed Aug, 30 days Active RESULTS No Results PROCEDURES No Known procedures INSTRUCTIONS MEDICATIONS ADMINISTERED No Known Medications MEDICAL (GENERAL) HISTORY Type Description Date 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
[2018-05-05] MEDS ORDERED: NS IV 500 ML 500 ML IV ONE (05:27)
--- NOTE | 2018-05-05 05:27 | ED Back Pain ---
General Chief Complaint: Back Problems Stated Complaint: BACK PAIN Nursing Triage Note: PT BROUGHT IN BY EMS WITH COMPLAINT OF BACK PAIN. PT STATES THAT SHE WAS MOVING HER BED ON SATURDAY AND HURT IT. Nursing Sepsis Screen: No Definite Risk Source of Information: Patient, EMS, Halfway Records Exam Limitations: No Limitations (JESSICA HIDALGO) History of Present Illness Date Seen by Provider: May 05, 2018 Time Seen by Provider: 05:15 Initial Comments Patient presents to the ER by EMS with a chief complaint that lifting her bed up 4 days ago on and felt a popping sensation in her back like the last time which she had a disc herniation and she had a surgery for. She is any retained hardware in her back. Says his low paralumbar region in the midline. She says she had her doctor's nurse practitioner come out and see her and didn' t really tolerate anything that started around Tylenol Motrin ice and icy hot and she felt that these have not helped her at all. She cannot tolerate the pain tonight so they called EMS and EMS give her 50 g of fentanyl en route which brought her pain down from a 10 to an 8. She still very uncomfortable with any movement of her back. She has a indwelling Askew catheter which she says has been one month and 18 days since it was last changed out. She is having a little discomfort around the catheter. She denies any fevers, chills, nausea or vomiting. (JESSICA HIDALGO) Allergies and Home Medications Allergies Coded Allergies: Sulfa (Sulfonamide Antibiotics) (Verified Allergy, Unknown, 02/06/17) diphenhydramine HCl (Verified Allergy, Unknown, 05/14/16) hydrochlorothiazide (Unverified Allergy, Unknown, 05/14/16) varenicline tartrate (Verified Allergy, Unknown, 05/14/16) Home Medications Acetaminophen 325 Mg Tablet, 650 MG PO Q4H PRN for PAIN-MILD, (Reported) Acetaminophen 325 Mg Tablet, 325 MG PO TID, (Reported) Albuterol Sulfate 8.5 Gm Hfa.aer.ad, 1 PUFF IH Q4H PRN for SHORTNESS OF BREATH, (Reported) Albuterol Sulfate 1 Puff Puff, 2 PUFF IH Q6H PRN for SHORTNESS OF BREATH, ( Reported) 1 PUFF = 90 MCG Apixaban 5 Mg Tablet, 5 MG PO BID, (Reported) Aspirin 81 Mg Tab.chew, 81 MG PO DAILY, (Reported) Atorvastatin Calcium 40 Mg Tablet, 40 MG PO HS, (Reported) Budesonide/Formoterol Fumarate 10.2 Gm Hfa.aer.ad, 2 PUFF IH BID, (Reported) Bupropion HCl 300 Mg Tab.er.24h, 300 MG PO HS, (Reported) Cephalexin 500 Mg Capsule, 500 MG PO QID Prescribed by: JUAREZ CLAY on 05/05/18941 Escitalopram Oxalate 20 Mg Tablet, 20 MG PO DAILY, (Reported) Estradiol 42.5 Gm Cream.appl, 1.25 GM VG PRN PRN for UTI PROPHYLAXIS, (Reported) Furosemide 20 Mg Tablet, 20 MG PO Q48H, (Reported) Gabapentin 400 Mg Capsule, 400 MG PO TID, (Reported) Lorazepam 0.5 Mg Tablet, 0.5 MG PO DAILY, (Reported) Metformin HCl 500 Mg Tablet, 500 MG PO DAILY, (Reported) TAKE WITH A MEAL Metoprolol Tartrate 50 Mg Tablet, 50 MG PO BID, (Reported) Ondansetron HCl 4 Mg Tablet, 4 MG PO Q6H PRN for NAUSEA/VOMITING-1ST LINE, ( Reported) Oxycodone HCl/Acetaminophen 1 Each Tablet, 1 EACH PO Q4H PRN for PAIN-MODERATE TO SEVERE Prescribed by: JUAREZ CLAY on 05/05/18941 Polyethylene Glycol 3350 17 Gm Powd.pack, 17 GM PO PRN PRN for CONSTIPATION-1ST LINE, (Reported) Potassium Chloride 20 Meq Tab.er.prt, 40 MEQ PO Q48H, (Reported) TAKES 2 (20MEQ) TABLETS EVERY OTHER DAY WITH FUROSEMIDE Tamsulosin HCl 0.4 Mg Cap, 0.4 MG PO DAILY, (Reported) Tramadol HCl 50 Mg Tablet, 50 MG PO TID, (Reported) Trazodone HCl 50 Mg Tablet, 25 MG PO HS, (Reported) Patient Home Medication List Home Medication List Reviewed: Yes (JESSICA HIDALGO) Constitutional: No chills, No diaphoresis, No fever; malaise EENTM: No ear discharge, No ear pain Respiratory: No cough, No short of breath Cardiovascular: No chest pain, No palpitations, No syncope Gastrointestinal: No abdominal pain, No constipation, No diarrhea, No nausea Genitourinary: No discharge, No dysuria; pain (discomfort around the Askew catheter) Musculoskeletal: see HPI, back pain; No joint pain Skin: No pruritus, No rash Psychiatric/Neurological: Denies Numbness, Denies Paresthesia (JESSICA HIDALGO) Past Kdwuhna-Avyppy-Gmqayq Hx Patient Social History Alcohol Use: Denies Use Recreational Drug Use: No Smoking Status: Former Smoker Type Used: Cigarettes Former Smoker, Quit: Oct 15, 1988 2nd Hand Smoke Exposure: No Recent Foreign Travel: No Contact w/Someone Who Travel: No Recent Infectious Disease Expo: No Recent Hopitalizations: No (JESSICA HIDALGO) Immunizations Up To Date Tetanus Booster (TDap): Unknown PED Vaccines UTD: No Date of Pneumonia Vaccine: Sep 05, 2014 Date of Influenza Vaccine: Aug 19, 2017 (JESSICA HIDALGO) Seasonal Allergies Seasonal Allergies: No (JESSICA HIDALGO) Past Medical History Surgeries: Yes (triple bypass, craniotomy for aneurysm repair, BLADDER SLING, SUPRAPUBIC CA) Adenoidectomy, Appendectomy, Bladder Surgery, Cardiac, CABG, Gallbladder, Hysterectomy, Joint Replacement, Orthopedic, Tonsillectomy Respiratory: Yes Asthma Cardiac: Yes (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, 2015) Coronary Artery Disease, High Cholesterol, Hypertension Neurological: Yes (HAD BRAIN SURGERY FOR ANEURYSM 2008) Reproductive Disorders: Yes Female Reproductive Disorders: Endometriosis 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 Sexually Transmitted Disease: No UTI-Chronic Gastrointestinal: No Chronic Constipation Musculoskeletal: Yes ( BILAT ROTATOR CUFF SURGERY) Degenerate Disk Disease, Arthritis, Chronic Back Pain Endocrine: Yes Diabetes, Non-Insulin dep Cataract Loss of Vision: Denies Hearing Impairment: Denies Cancer: No Psychosocial: Yes (panic disorder) Anxiety, Depression Integumentary: No Blood Disorders: No Adverse Reaction/Blood Tranf: No (JESSICA HIDALGO) Aneurysm (AAA) (JUAREZ DAWSON MD) Family Medical History Cancer 09 SISTER Cancer of colon Cataract 03 MOTHER, Onset:Unknown Family history: Allergy 03 FATHER, Onset:Unknown 03 MOTHER, Onset:Unknown Family history: Arthritis 03 FATHER, Onset:Unknown 03 MOTHER, Onset:Unknown 09 SISTER, Onset:Unknown Family history: Cardiovascular disease 03 FATHER, Onset:Unknown 03 MOTHER, Onset:Unknown 09 BROTHER, Onset:Unknown 09 SISTER, Onset:Unknown Family history: Diabetes mellitus 03 MOTHER, Onset:Unknown Family history: Gastrointestinal disease 03 FATHER, Onset:Unknown Family history: Hypertension 03 MOTHER, Onset:Unknown Family history: Osteoporosis 03 MOTHER, Onset:Unknown Hearing loss 03 FATHER, Onset:Unknown Heart disease 03 FATHER, Onset:Unknown 03 MOTHER, Onset:Unknown 09 BROTHER, Onset:Unknown Hypercholesterolemia 03 MOTHER, Onset:Unknown Malignant neoplasm of lung 09 SISTER, Onset:Unknown Myocardial infarction 09 BROTHER, Onset:Unknown Parkinson's disease Stroke 03 FATHER, Onset:Unknown Thyroid disease No Family History of: Abdominal aortic aneurysm Albion's disease Alcoholism Aphasia Chest pain Congenital heart disease Congestive heart failure Cystic fibrosis Dementia Dysphagia Family history: Alzheimer's disease Family history: Asthma Family history: Breast disease Family history: Coronary thrombosis Family history: Glaucoma Family history: Thyroid disorder Headache Hereditary disease History of - anemia History of - disorder History of - respiratory disease History of drug abuse Human immunodeficiency virus (HIV) seropositivity Infertile Kidney disease Prostate cancer Psychotic disorder Seizure disorder Tuberculosis Visual impairment Heart Disease, Diabetes (JESSICA HIDALGO) Physical Exam Vital Signs Vital Signs - First Documented 05/05/18 05:14 Pulse 101 Resp 22 B/P (MAP) 103/77 (86) Pulse Ox 94 (JUAREZ DAWSON MD) Vital Signs Capillary Refill : Less Than 3 Seconds (JESSICA HIDALGO) General Appearance: WD/WN, Moderate Distress HEENT: PERRL/EOMI, Pharynx Normal Neck: Normal Inspection, Non Tender Cardiovascular: Regular Rate, Rhythm, Normal Peripheral Pulses Respiratory: Lungs Clear, Normal Breath Sounds, No Accessory Muscle Use, No Respiratory Distress Gastrointestinal: Normal Bowel Sounds, Non Tender, Soft Back: Normal Inspection, Vertebral Tenderness (lumbar midline) Extremity: Normal Capillary Refill, Normal Inspection Neurologic/Psychiatric: Alert, Oriented x3, No Motor/Sensory Deficits, Normal Mood/Affect Skin: Normal Color, Warm/Dry (JESSICA HIDALGO) Progress/Results/Core Measures Results/Orders Lab Results Laboratory Tests Test 05/05/18 05:39 05/05/18 05:41 05/05/18 05:50 Range/Units Urine Color YELLOW Urine Clarity CLEAR Urine pH 6.5 5-9 Urine Specific [place] 1.015 L 1.016-1.022 Urine Protein 2+ H NEGATIVE Urine Glucose (UA) NEGATIVE NEGATIVE Urine Ketones NEGATIVE NEGATIVE Urine Nitrite POSITIVE H NEGATIVE Urine Bilirubin NEGATIVE NEGATIVE Urine Urobilinogen NORMAL NORMAL MG/DL Urine Leukocyte Esterase 3+ H NEGATIVE Urine RBC (Auto) 2+ H NEGATIVE Urine RBC 2-5 H /HPF Urine WBC 50-100 H /HPF Urine Squamous Epithelial Cells 2-5 /HPF Urine Crystals NONE /LPF Urine Bacteria MODERATE H /HPF Urine Casts NONE /LPF Urine Mucus MODERATE H /LPF Urine Culture Indicated YES White Blood Count 10.8 4.3-11.0 10^3/uL Red Blood Count 3.95 L 4.35-5.85 10^6/uL Hemoglobin 12.2 11.5-16.0 G/DL Hematocrit 36 35-52 % Mean Corpuscular Volume 91 80-99 FL Mean Corpuscular Hemoglobin 31 25-34 PG Mean Corpuscular Hemoglobin Concent 34 32-36 G/DL Red Cell Distribution Width 15.4 H 10.0-14.5 % Platelet Count 242 130-400 10^3/uL Mean Platelet Volume 9.8 7.4-10.4 FL Neutrophils (%) (Auto) 64 42-75 % Lymphocytes (%) (Auto) 23 12-44 % Monocytes (%) (Auto) 11 0-12 % Eosinophils (%) (Auto) 2 0-10 % Basophils (%) (Auto) 0 0-10 % Neutrophils # (Auto) 6.9 1.8-7.8 X 10^3 Lymphocytes # (Auto) 2.4 1.0-4.0 X 10^3 Monocytes # (Auto) 1.1 H 0.0-1.0 X 10^3 Eosinophils # (Auto) 0.2 0.0-0.3 10^3/uL Basophils # (Auto) 0.0 0.0-0.1 10^3/uL Sodium Level 141 135-145 MMOL/L Potassium Level 4.8 3.6-5.0 MMOL/L Chloride Level 106 98-107 MMOL/L Carbon Dioxide Level 23 21-32 MMOL/L Anion Gap 12 5-14 MMOL/L Blood Urea Nitrogen 26 H 7-18 MG/DL Creatinine 0.75 0.60-1.30 MG/DL Estimat Glomerular Filtration Rate > 60 BUN/Creatinine Ratio 35 Glucose Level 107 H 70-105 MG/DL Calcium Level 9.5 8.5-10.1 MG/DL Total Bilirubin 0.4 0.1-1.0 MG/DL Aspartate Amino Transf (AST/SGOT) 17 5-34 U/L Alanine Aminotransferase (ALT/SGPT) 26 0-55 U/L Alkaline Phosphatase 66 40-136 U/L Total Protein 7.1 6.4-8.2 GM/DL Albumin 3.9 3.2-4.5 GM/DL Lactic Acid Level 1.00 0.50-2.00 MMOL/L (JUAREZ DAWSON MD) Micro Results Microbiology 05/05/18 Urine Culture - Preliminary, Resulted Sent To [facility] (JUAREZ DAWSON MD) My Orders Orders - JUAREZ DAWSON MD Fentanyl Injection (Sublimaze Injection (05/05/18 06:15) Pelvis (05/05/18 07:00) Oxycodone/Apap 5/325mg Tablet (Percocet (05/05/18 08:00) Heart Healthy (05/05/18 Breakfast) (JUAREZ DAWSON MD) Medications Given in ED (JUAREZ DAWSON MD) Vital Signs/I&O 05/05/18 05/05/18 05/05/18 05:14 09:00 09:50 Pulse 101 101 101 Resp 22 22 22 B/P (MAP) 103/77 (86) 103/77 103/77 (86) Pulse Ox 94 94 94 (JUAREZ DAWSON MD) Blood Pressure Mean: 86 Progress Progress Note : Time: 06:02 Progress Note We'll get a CT scan of her lumbar spine looking for fracture, cyanosis or other acute malalignment. Her pain started after she was lifting something heavy, her bed and has not improved with conservative Tylenol or topical creams and ice. Give her a second dose of fentanyl since her pain is still 8 out of 10. Says her catheter is been giving her some discomfort and is overdue for a change out and a urinalysis cloudy. I'll call the symptomatic and go ahead and treat the urinalysis that shows nitrites and leukocytes which might otherwise be considered colonizer's. (JESSICA HIDALGO) Progress Note #1: Progress Note Care of this patient was assumed from Dr. Hidalgo. CT report is pending along with labs. Progress Note #2: Time: 08:[address] scan revealed a compression fracture at L3. Patient's urinary tract infection was treated with Rocephin. Case was reviewed with Dr. Marcelo. She would like to try to send the patient back [facility] the [place] [facility] if pain can be controlled. Patient is agreeable to this plan. We will give her a Percocet and breakfast. As long as she is able to tolerate getting into a wheelchair after that point, we will send her home. An incidental abdominal aortic aneurysm was also noted. Progress Note #3: Time: 09:42 Progress Note After treatment with Percocet, patient ate breakfast and was able to get up to a wheelchair. She was then dismissed based on prior conversation with Dr. Marcelo. (JUAREZ DAWSON MD) Initial ECG Impression Date: May 05, 2018 Initial ECG Impression Time: 05:23 Initial ECG Rate: 49 Initial ECG Rhythm: S.Bo Comment Sinus bradycardia with LVH and left axis deviation. No ST elevation or depression. No other abnormal intervals. (JUAREZ DAWSON MD) Diagnostic Imaging Diagonstic Imaging: CT Plain Films/CT/US/NM/MRI: other (lumbar spine without contrast) Reviewed: Reviewed [place] Study, Reviewed by Me (JESSICA HIDALGO) Departure Impression Primary Impression: Compression fracture of L3 lumbar vertebra Qualified Codes: S32.030A - Wedge compression fracture of third lumbar vertebra, initial encounter for closed fracture Additional Impressions: Abdominal aortic aneurysm Qualified Codes: I71.4 - Abdominal aortic aneurysm, without rupture Urinary tract infection Qualified Codes: N39.0 - Urinary tract infection, site not specified Lower back pain Qualified Codes: M54.5 - Low back pain Disposition: 01 HOME, SELF-CARE Condition: Improved Departure-Patient Inst. Referrals: SHANIQUE VEGA MD (PCP/Family) Primary Care Physician Patient Instructions: Urinary Tract Infection, Adult (DC), Vertebral Compression Fracture Add. Discharge Instructions: Encourage plenty of clear liquids. Complete antibiotics as prescribed. Follow-up with your primary care provider on Saturday or to review urine culture results. Use Percocet for pain not controlled by your other pain medications. Return to emergency room or contact your doctor if you have worsening symptoms. All discharge instructions reviewed with patient and/or family. Voiced understanding. Scripts Oxycodone HCl/Acetaminophen (Percocet 5-325 mg Tablet) 1 Each Tablet 1 EACH PO Q4H PRN for PAIN-MODERATE TO SEVERE, #20 TAB Prov: JUAREZ DAWSON MD 05/05/18 Cephalexin (Keflex) 500 Mg Capsule 500 MG PO QID, #28 CAP Prov: JUAREZ DAWSON MD 05/05/18 JESSICA HIDALGO May 05, 2018 05:27 JUAREZ DAWSON MD May 05, 2018 07:12
--- OUTSIDE RECORDS SUMMARY | 2018-05-05 05:27 | XMS REPORT ---
Author Author SHAHNAZ MARQUEZ [facility] Address [address] [place] [address] Care Team Providers Care Clinical Office Technician Name Role Phone SHAHNAZ MARQUEZ Unavailable PROBLEMS Type Condition ICD9-CM Code [id number] Code Onset Dates Condition Status SNOMED Code Problem Other chronic pain G89.29 Active 58255901 Problem Type 2 diabetes mellitus without complication, without long-term current use of insulin E11.9 Active 782899569 Problem Low back pain M54.5 Active 213246741 Problem Hypertension I10 Active 15077048 Problem Coronary artery disease I25.10 Active 36581346 Problem Hyperlipidemia E78.5 Active 60142299 Problem Peripheral vascular disease I73.9 Active 618950011 Problem Insomnia G47.00 Active 426118366 Problem Reactive depression F32.9 Active 51400490 Problem Ventral hernia without obstruction or gangrene K43.9 Active 692058369 Problem Anxiety F41.9 Active 99292219 Problem Pharyngeal dysphagia R13.13 Active [id number] ALLERGIES No Information ENCOUNTERS Encounter Location Date Diagnosis [facility] [id number] [place] [address] 47925- 1359 March, [facility] [id number] [place] [address] 43902- 7760 March, [facility] [id number] [place] [address] 42375- 9337 Feb, [facility] [address] [address] Feb, Other chronic pain G89.29 Via [facility] [address] [facility] [place] [id number] Feb, Other chronic pain G89.29 and Anxiety F41.9 [facility] [address] [address] Feb, [facility] [address] [id number] [address] Jan, [facility] [address] [id number] 2166 Jan, [facility] [address] [id number] [address] 6936 Jan, [facility] [address] [id number] [address] 8203 Jan, [facility] [address] [id number] [address]39 Dec, Via [employer] [address] [place] [id number] Dec, Peripheral vascular disease I73.9 ; 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 ; Other chronic pain G89.29 ; Anxiety F41.9 ; Reactive depression F32.9 ; Insomnia G47.00 and Type 2 diabetes mellitus without complication, without long-term current use of insulin E11.9 [facility] [address] [id number] [place] [address] Nov [facility] [place] [id number] [id number] Nov, Anxiety F41.9 [facility] [address] [facility] [id number], [place] [address] Nov, [facility] [place] [id number] [id number] Nov, Anxiety F41.9 Via [employer] [address] [facility] [place] [id number] Nov, Status post surgery Z98.890 ; Confused R41.0 ; Anxiety F41.9 and Other chronic pain G89.29 [facility] [place] [address] [id number] [id number] Nov, Other chronic pain G89.29 [facility] [address] [id number] [address] 2546 Oct, [facility] [address] [id number] [address] Oct, Other chronic pain G89.29 [facility] [address] [facility] [id number], [place] [address] 2546 Oct, Anxiety F41.9 [facility] [id number] [place] [id number] Sep, Other chronic pain G89.29 [facility] [address] [id number] [id number] Sep, Via [employer] [address] [place] [id number] Aug, Dysuria R30.0 and Anxiety F41.9 [facility] [address]00565100[place], [place] [address] 2546 Aug, [facility] [id number] [place] [id number] Aug, Other chronic pain G89.29 [facility] [address] [place] [address] 80798- 0716 Jul, Other chronic pain G89.29 [facility] [address] [id number] [id number] Jun, [facility] [id number] [place] [address] [id number] Jun, Other chronic pain G89.29 [facility] [address] [facility] [id number], [place] [address] 290[address] Jun, [facility] [address] [facility] [id number], [place] [address] 5166 May, Other chronic pain G89.29 [facility] [address] [facility] [id number], [place] [address] 2546 Apr, Other chronic pain G89.29 Via [employer] [address] [place] [id number] Apr, Reactive depression F32.9 and Pharyngeal dysphagia R13.13 [facility] [address]00565[address], [place] [address] Apr, Urinary tract infection without hematuria, site unspecified N39.0 [facility] [address]00565100[place], [place] [address] 6545 March, Other chronic pain G89.29 [facility] [id number] [place] [address] 05854- 3766 Feb, Other chronic pain G89.29 [facility] [id number] [place] [address] 60126- 8603 Feb, [facility] [place] [id number] [place] [id number] Feb, Via [facility] [employer] [facility] [address] [place] [id number] Feb, Dysuria R30.0 and Ventral hernia without obstruction or gangrene K43.9 [facility] [address] [place] [address] 17284- 4030 Jan, Other chronic pain G89.29 [facility] [id number] [place] [address] [id number] Dec, Other chronic pain G89.29 [facility] [address] [place] [address] 36121- 2649 Nov, Other chronic pain G89.29 Via [employer] [address] [place] [id number] Nov, Lymphadenitis I88.9 [facility] [address] [place] [address] 62093- 6180 Nov, Other chronic pain G89.29 [facility] [address] [place] [address] 04794- 7036 Nov, [facility] [place] [id number] [place] [address] [id number] Nov, Other chronic pain G89.29 Via [employer] [address] [place] [id number] Oct, Low back pain M54.5 ; Hypertension I10 and Type 2 diabetes mellitus without complication, without long-term current use of insulin E11.9 [facility] [address] [id number], [place] [address] 3387 Oct, [facility] [address] [facility] [id number] [place] [address] 08798- 4912 Oct, [facility] [address] [facility] [id number] [place] [address] 66568- 8484 Oct, [facility] [address] [facility] [id number] [place] [address] 54160- 3524 Oct, [facility] [id number] [place] [address] 43171- 3973 Sep, [facility] [id number] [place] [address] 44003- 7452 Sep, [facility] [id number] [place] [address] 02190- 4482 Aug, Other chronic pain G89.29 [facility] [address] [place] [address] 36744- 2545 Jul, [facility] [address] [id number], [place] [address]- 6164 Jul, [facility] [address] [place] [address] 41786- 2545 Jul, [facility] [address] [facility] [id number] [place] [address] 25516- 2548 Jun, [facility] [address] [place] [address] 10841- 2542 Jun, Via [employer] [address] [place] [id number] Jun, Low back pain M54.5 ; Other chronic pain G89.29 and Coronary artery disease I25.10 [facility] [address] [facility] [id number], [place] [address]- 0595 Jun, [facility] [address] [facility] [id number], [place] [address]- 1306 May, [facility] [address] [facility] [id number], [place] [address]- 9376 May, [facility] [id number] [place] [address] 95058- 7915 May, Other chronic pain G89.29 [facility] [address] [facility] [id number], [place] [address]- 8049 May, [facility] [address] [place] [address] 33540- 0968 Apr, [facility] [address], [place] [address]- 1112 Apr, Acute cystitis without hematuria N30.00 [facility] [address], [place] [address]- 0181 16 Apr, 2016 Acute cystitis without hematuria N30.00 ; Coronary artery disease I25.10 ; Low back pain M54.5 and Other chronic pain G89.29 [facility] [address], [place] [address]- 2761 Apr, Other chronic pain G89.29 [facility] [address], [place] [address]- 9575 March, Other chronic pain G89.29 [facility] [address], [place] [address]- 3520 18 Feb, 2016 [facility] [address], [place] [address]- 4741 Feb, Arthritis M19.90 [facility] [address], [place] [address]- 3398 Feb, [facility] [address], [place] [address]- 8902 Jan, [facility] [address], [place] [address]- 2416 Jan, [facility] [address] [place] [address] 63323- 9699 Jan, Other chronic pain G89.29 [facility] [id number] [place] [address] 40269- 1930 Jan, Hypertension I10 ; Coronary artery disease I25.10 and Insomnia G47.00 [facility] [address] [place] [address] 94959- 7810 Jan, [facility] [id number] [place] [address] 04884- 6834 Dec, Right hip pain M25.551 [facility] [id number] [place] [address] 89340- 2871 Dec, [facility] [address], [place] [address]- 1088 Dec, [facility] [address] [place] [address] 45352- 1287 Dec, [facility] [address], [place] [address]- 1627 Dec, Other chronic pain G89.29 [facility] [address], [place] [address]- 0757 Dec, [facility] [address], [place] [address] 2543 Nov, [facility] [address], [place] [address] 2542 Nov, Other chronic pain G89.29 [facility] [address], [place] [address]- 2545 Nov, Right hip pain M25.551 and Coronary artery disease I25.10 [facility] [address], [place] [address]- 4191 Nov, Other chronic pain G89.29 [facility] [id number] [place] [address] 65881- 4681 Oct, [facility] [id number] [place] [address] 08008- 2454 Oct, [facility] [id number] [place] [address] 17638- 5773 Sep, [facility] [id number] [place] [address] 86616- 4540 Sep, [facility] [id number] [place] [address] 69492- 5652 Aug, [facility] [id number] [place] [address] 97644- 4999 Aug, Hypertension I10 ; Coronary artery disease I25.10 and Arthritis M19.90 [facility] [id number] [place] [address] 98449- 2205 Jun, [facility] [id number] [place] [address] 66357- 4491 Jun, Essential hypertension, benign 401.1 ; Other chronic pain 338.29 and Chronic airway obstruction, not elsewhere classified 496 [facility] [address], [place] [address]- 4344 Jun, [facility] [address], [place] [address]- 8601 Jun, [facility] [id number] [place] [address] 12446- 9730 Jun, [facility] [address], [place] [address]- 4758 May, [facility] [address], [place] [address]- 9987 May, [facility] [address] [id number] [place] [address]- 5044 Apr, [facility] [address] [id number] [place] [address]- 6404 Apr, [facility] [address] [id number] [place] [address]- 2776 Apr, [facility] [address] [id number] [place] [address]- 3178 March, [facility] [address] [id number] [place] [address]- 6524 March, [facility] [address] [id number] [place] [address]- 4501 March, [facility] [address] [id number] [place] [address]- 7148 March, [facility] [address] [id number] [place] [address]- 6513 March, Sialadenitis 527.2 [facility] [address] [id number] [place] [address]- 0099 Feb, [facility] [address] [id number] [place] [address]- 6629 Feb, [facility] [address] [id number] [place] [address]- 0812 Feb, [facility] [address] [id number] [place] [address]- 3562 14 Feb, 2015 [facility] [address] [id number] [place] [address]- 0723 Feb, [facility] [address] [id number] [place] 5607 Jan, [facility] [address] [id number] [place] 1500 Jan, [facility] [address] [id number] [place] [address]- 2498 Jan, [facility] [place] [facility] [address] [id number] [place] [address]- 3661 Jan, [facility] [place] [facility] [address] [id number] [place] [address]- 3203 Jan, [facility] [place] [facility] [address] [id number] [place] [address]- 9035 Jan, [facility] [place] [facility] [address] [id number] [place] [address]- 7762 Dec, 2014 [facility] [place] [facility] [address] [id number] [place] [address]- 5132 Dec, 2014 [facility] [place] [facility] [address] [id number] [place] [address]- 5072 Dec, 2014 [facility] [place] [facility] [address] [id number] [place] [address]- 4535 Dec, 2014 [facility] [place] [facility] [address] [id number] [place] [address]- 8737 Dec, [facility] [place] [facility] [address] [id number] [place] [address]- 1036 Dec, [facility] [place] [facility] [address] [facility] [id number] [place] [address]- 8429 Nov, [facility] [place] [facility] [address] [id number] [place] [address]- 5908 Nov, [facility] [place] [facility] [address] [id number] [place] [address]- 1891 Nov, [facility] [place] [facility] [address] [id number] [place] [address]- 1793 Nov, [facility] [place] [facility] [address] [id number] [place] [address]- 7973 Nov, [facility] [place] [facility] [address] [id number] [place] [address]- 2592 Nov, [facility] [place] [facility] [address] [id number] [place] [address]- 3091 Nov, [facility] [address] [id number] [place] [address]- 9107 Nov, [facility] [place] [facility] [address] [id number] [place] [address]- 4465 Nov, [facility] [address] [id number] [place] [address]- 9839 Nov, [facility] [address] [id number] [place] [address]- 2493 Nov, [facility] [address] [id number] [place] [address]- 4977 Nov, [facility] [address] [id number] [place] [address]- 5486 Nov, [facility] [address] [id number] [place] [address]- 6135 Nov, [facility] [address] [id number] [place] [address]- 3161 Oct, [facility] [address] [id number] [place] [address]- 7629 Oct, [facility] [place] [facility] [address] [id number] [place] [address]- 8995 Oct, [facility] [place] [facility] [address] [id number] [place] [address]- 3020 18 Oct, 2014 [facility] [place] [facility] [address] [id number] [place] [address]- 3387 18 Oct, 2014 [facility] [place] [facility] [address] [id number] [place] [address]- 8834 17 Oct, 2014 [facility] [place] [facility] [address] [id number] [place] [address]- 3392 17 Oct, 2014 [facility] [place] [facility] [address] [id number] [place] [address]- 3473 Oct, [facility] [place] [facility] [address] [id number] [place] [address]- 9079 Oct, [facility] [place] [facility] [address] [id number] [place] [address]- 5323 Sep, [facility] [place] [facility] [address] [id number] [place] [address]- 2763 Sep, [facility] [place] [facility] [address] [id number] [place] [address]- 5871 Sep, [facility] [place] [facility] [address] [id number] [place] [address]- 1985 Sep, [facility] [place] [facility] [address] [id number] [place] [address]- 1809 Sep, [facility] [place] [facility] [address] [id number] [place] [address]- 7818 Sep, [facility] [place] [facility] [address] [id number] [place] [address]- 3772 Sep, [facility] [place] [facility] [address] [id number] [place] [address]- 2201 Sep, [facility] [place] [facility] [address] [id number] [place] [address]- 8986 Sep, [facility] [place] [facility] [address] [id number], [place] [address]- 7397 Sep, [facility] [place] [facility] [address] [id number], [place] [address]- 6349 Sep, [facility] [place] [facility] [address] [id number] [place] [address]- 1110 Sep, [facility] [place] [facility] [address] [id number] [place] [address]- 8329 Aug, [facility] [place] [facility] [address] [id number] [place] [address]- 6646 Aug, [facility] [place] [facility] [address] [id number] [place] [address]- 3584 29 Aug, 2013 [facility] [place] [facility] [address] [id number] [place] [address]- 1407 29 Aug, 2014 [facility] [place] [facility] [address] [id number] [place] [address]- 4695 28 Aug, 2014 [facility] [place] [facility] [address] [id number] [place] [address]- 7841 28 Aug, 2014 [facility] [place] [facility] [address] [id number] [place] [address]- 7023 17 Aug, 2014 [facility] [place] [facility] [address] [id number] [place] [address]- 6680 17 Aug, 2013 [facility] [place] [facility] [address] [id number] [place] [address] 30 Jul, 2013 [facility] [place] [facility] [address] [id number] [place] [address] 30 Sep, 2013 [facility] [place] [facility] [address] [id number] [place] [address] 30 Sep, 2013 [facility] [place] [facility] [address] [id number] [place] [address] 30 Sep, 2013 [facility] [place] [facility] [address] [id number] [place] [address] 25 Sep, 2013 [facility] [place] [facility] [address] [id number] [place] [address] 25 Sep, 2013 [facility] [place] [facility] [address] [id number] [place] [address]- [address] 15 Sep, 2013 [facility] [place] [facility] [address] [id number] [place] [address] 15 Sep, 2013 [facility] [place] [facility] [address] [id number] [place] [address] 11 Sep, 2013 [facility] [place] [facility] [address] [id number] [place] [address] Jul, [facility] [place] [facility] [address] [id number] [place] [address]- [address] Jun, [facility] [place] [facility] [address] [id number] [place] [address] Jun, [facility] [place] [facility] [address] [id number] [place] [address]- [address]60 Jun, [facility] [place] [facility] [address] [id number] [place] [address]- 1544 Jun, [facility] [place] [facility] [address] [id number] [place] [address]- [address] Jun, [facility] [place] [facility] [address] [id number] [place] [address]- [address] Jun, [facility] [place] [facility] [address] [id number] [place] [address]- [address] Jun, [facility] [place] [facility] [address] [id number] [place] [address]- [address] Jun, [facility] [place] [facility] [address] [id number] [place] [address]- [address]689 Jun, [facility] [place] [facility] [address] [id number] [place] [address] Jun, [facility] [place] [facility] [address] [id number] [place] [address]- [address] Jun, [facility] [place] [facility] [address] [id number] [place] [address]- [address] Jun, [facility] [place] [facility] [address] [id number] [place] [address]- 1605 Jun, [facility] [place] [facility] [address] [id number] [place] [address]- [address] Jun, [facility] [place] [facility] [address] [id number] [place] [address]- [address] Jun, [facility] [place] [facility] [address] [id number] [place] [address]- 6970 Jun, [facility] [place] [facility] [address] [id number] [place] [address]- [address] Jun, [facility] [place] [facility] [address] [id number] [place] [address]- [address] Jun, [facility] [place] [facility] [address] [id number] [place] [address]- 8538 Jun, [facility] [place] [facility] [address] [id number] [place] [address]- [address] Jun, [facility] [place] [facility] [address] [id number] [place] [address]- [address] Jun, [facility] [place] [facility] [address] [id number] [place] [address]- [address]990 Jun, [facility] [place] [facility] [address] [id number] [place] [address]- [address] May, [facility] [place] [facility] [address] [id number] [place] [address]- 9263 May, [facility] [place] [facility] [address] [id number] [place] [address]- [address]073 May, [facility] [place] [facility] [address] [id number] [place] [address]- 9315 May, [facility] [place] [facility] [address] [id number] [place] [address]- 4780 May, [facility] [place] [facility] [address] [id number] [place] [address]- [address] May, [facility] [place] [facility] [address] [id number] [place] [address]- [address]444 May, [facility] [place] [facility] [address] [id number] [place] [address]- [address]160 May, [facility] [place] [facility] [address] [id number] [place] [address]- 1519 May, [facility] [place] [facility] [address] [id number] [place] [address] May, [facility] [place] [facility] [address] [id number] [place] [address]- [address] May, [facility] [place] [facility] [address] [id number] [place] [address] May, [facility] [place] [facility] [address] [id number] [place] [address]- [address] May, [facility] [place] [facility] [address] [id number] [place] [address]- [address] Apr, [facility] [place] [facility] [address] [id number] [place] [address]- [address] Apr, [facility] [place] [facility] [address] [id number] [place] [address]- [address]88 Apr, [facility] [place] [facility] [address] [id number] [place] [address]- 5683 Apr, [facility] [place] [facility] [address] [id number] [place] [address] 4799 Apr, [facility] [place] [facility] [address] [id number] [place] [address]- 8137 Apr, [facility] [place] [facility] [address] [id number] [place] [address]- 0823 Apr, [facility] [place] [facility] [address] [id number] [place] [address]- 5254 Apr, [facility] [place] [facility] [address] [id number] [place] [address]- 8785 Apr, [facility] [place] [facility] [address] [id number] [place] [address] 3613 March, [facility] [place] [facility] [address] [id number] [place] [address] 6107 March, [facility] [place] [facility] [address] [id number] [place] [address]- 8569 March, [facility] [address] [id number] [place] [address] 6015 March, [facility] [place] [facility] [address] [id number] [place] [address]- 6519 March, [facility] [place] [facility] [address] [id number] [place] [address]- 1037 March, [facility] [place] [facility] [address] [id number] [place] [address]- 6628 March, [facility] [place] [facility] [address] [id number] [place] [address]- 5160 March, [facility] [place] [facility] [address] [id number] [place] [address]- 4164 March, [facility] [place] [facility] [address] [id number] [place] [address]- 5651 March, [facility] [place] [facility] [address] [id number] [place] [address]- 7769 March, [facility] [place] [facility] [address] [id number] [place] [address]- 3973 March, [facility] [place] [facility] [address] [id number] [place] [address]- 6054 March, [facility] [place] [facility] [address] [id number] [place] [address]- 6068 March, [facility] [place] [facility] [address] [id number] [place] [address]- 3056 March, [facility] [place] [facility] [address] [id number] [place] [address]- 7026 March, [facility] [place] [facility] [address] [id number] [place] [address]- 5657 March, [facility] [place] [facility] [address] [id number] [place] [address]- 3841 March, [facility] [place] [facility] [address] [id number] [place] [address]- 2629 March, [facility] [place] [facility] [address] [id number] [place] [address]- 0919 March, [facility] [place] [facility] [address] [id number] [place] [address]- 5974 Feb, [facility] [place] [facility] [address] [id number] [place] [address]- 5922 Feb, [facility] [place] [facility] [address] [id number] [place] [address]- 7772 Feb, [facility] [place] [facility] [address] [id number] [place] [address]- 0831 Feb, [facility] [place] [facility] [address] [id number] [place] [address]- 5999 Feb, [facility] [place] [facility] [address] [id number] [place] [address]- 0200 Feb, [facility] [place] [facility] [address] [id number] [place] [address]- 7254 Feb, [facility] [place] [facility] [address] [id number] [place] [address]- 5039 Feb, [facility] [place] [facility] [address] [id number] [place] [address]- 6989 Jan, [facility] [place] [facility] [address] [id number] [place] [address]- 4647 Jan, [facility] [place] [facility] [address] [id number] [place] [address]- 6431 24 Jan, 2014 [facility] [place] [facility] [address] [id number] [place] [address]- 3876 24 Jan, 2014 [facility] [place] [facility] [address] [id number] [place] [address]- 5157 Jan, [facility] [place] [facility] [address] [id number] [place] [address]25 13 Jan, 2014 [facility] [place] [facility] [address] [id number] [place] [address]- 4780 Jan, [facility] [place] [facility] [address] [id number] [place] [address]- 3421 Jan, [facility] [place] [facility] [address] [id number] [place] [address]- 2215 Jan, [facility] [place] [facility] [address] [id number] [place] [address]- 3624 Jan, [facility] [place] [facility] [address] [id number] [place] [address]- 1041 Dec, [facility] [place] [facility] [address] [id number] [place] [address]- 0834 Dec, [facility] [place] [facility] [address] [id number] [place] [address]- 8834 Dec, [facility] [place] [facility] [address] [id number] [place] [address]- 6171 Dec, [facility] [place] [facility] [address] [id number] [place] [address]- 5688 Dec, [facility] [place] [facility] [address] [id number] [place] [address]- 5761 Dec, [facility] [place] [facility] [address] [id number] [place] [address]- 7042 Dec, [facility] [place] [facility] [address] [id number] [place] [address]- 2857 Dec, [facility] [place] [facility] [address] [id number] [place] [address]- 8771 Nov, [facility] [place] [facility] [address] [id number] [place] [address]- 6014 Nov, [facility] [place] [facility] [address] [id number] [place] [address]- 1354 Nov, [facility] [place] [facility] [address] [id number] [place] [address]- 7809 Nov, [facility] [address] [id number] [place] [address]- 2403 Nov, [facility] [place] [facility] [address] [id number] [place] [address]- 3074 Nov, [facility] [address] [id number] [place] [address]- 7413 Nov, [facility] [place] [facility] [address] [id number] [place] [address]- 7425 Nov, [facility] [place] [facility] [address] [id number] [place] [address]- 6386 Nov, [facility] [place] [facility] [address] [id number] [place] [address]- 2089 Nov, [facility] [address] [id number] [place] [address]- 8919 Nov, [facility] [place] [facility] [address] [id number] [place] [address]- 0764 Nov, [facility] [place] [facility] [address] [id number] [place] [address]- 8335 Nov, [facility] [address] [id number] [place] [address]- 2682 Oct, [facility] [place] [facility] [address] [id number] [place] [address]- 7346 Oct, [facility] [place] [facility] [address] [id number] [place] [address]- 3895 Oct, [facility] [place] [facility] [address] [id number] [place] [address]- 5674 Oct, [facility] [place] [facility] [address] [id number] [place] [address]- 4653 Oct, [facility] [place] [facility] [address] [id number] [place] [address]- 2469 Oct, [facility] [place] [facility] [address] [id number] [place] [address]- 2771 Oct, [facility] [address] [id number] [place] [address]- 8515 Oct, [facility] [address] [id number] [place] [address]- 3605 Oct, [facility] [address] [id number] [place] [address]- 4667 Oct, [facility] [address] [id number] [place] [address]- 7064 Oct, [facility] [address] [id number] [place] [address]- 2954 Oct, [facility] [address] [id number] [place] [address]- 6538 Oct, [facility] [address] [id number] [place] [address]- 9561 Oct, [facility] [address] [id number] [place] [address]- 9713 Sep, [facility] [address] [id number] [place] [address]- 3531 Sep, [facility] [address] [id number] [place] [address]- 5342 Sep, [facility] [place] [facility] [address] [id number] [place] [address]- 7967 Sep, [facility] [place] [facility] [address] [id number] [place] [address]- 5598 Sep, [facility] [place] [facility] [address] [id number] [place] [address]- 6335 Sep, [facility] [place] [facility] [address] [id number] [place] [address]- 9571 Sep, [facility] [place] [facility] [address] [id number] [place] [address]- 2379 Sep, [facility] [place] [facility] [address] [id number] [place] [address]- 2987 Sep, [facility] [place] [facility] [address] [id number] [place] [address] Sep, [facility] [place] [facility] [address] [id number] [place] [address]- 5528 Aug, [facility] [place] [facility] [address] [id number] [place] [address]- 7642 Aug, [facility] [place] [facility] [address] [id number] [place] [address]- 3028 Aug, [facility] [place] [facility] [address] [id number] [place] [address]- 5755 Aug, [facility] [place] [facility] [address] [id number], [place] [address]- 9934 Aug, [facility] [place] [facility] [address] [id number], [place] [address]- 7860 Aug, [facility] [place] [facility] [address] [id number] [place] [address]- 6857 Aug, [facility] [place] [facility] [address] [id number] [place] [address]- 5839 Aug, [facility] [place] [facility] [address] [id number], [place] [address]- 8693 Aug, [facility] [place] [facility] [address] [id number], [place] [address]- 8894 Aug, [facility] [place] [facility] [address] [id number] [place] [address]- 0741 Aug, [facility] [place] [facility] [address] [id number], [place] [address]- 7453 Aug, [facility] [place] [facility] [address] [id number] [place] [address]- 7910 Aug, [facility] [place] [facility] [address] [id number] [place] [address]- 2031 18 Aug, 2013 [facility] [address] [id number] [place] [address]- 1824 17 Aug, 2013 [facility] [place] [facility] [address] [id number] [place] [address]- 8343 14 Aug, 2013 [facility] [address] [id number] [place] [address]- 0537 14 Aug, 2013 [facility] [place] [facility] [address] [id number] [place] [address]- 4862 01 Aug, 2013 [facility] [address] [id number] [place] [address]- 9567 20 Jul, 2013 [facility] [place] [facility] [address] [id number] [place] [address]- 5660 19 Jul, 2013 [facility] [place] [facility] [address] [id number] [place] [address]- 9870 18 Jul, 2013 [facility] [address] [id number] [place] [address]- 0990 11 Jul, 2013 [facility] [place] [facility] [address] [id number] [place] [address]- 1808 11 Jul, 2013 [facility] [address] [id number] [place] [address]- 5902 28 Jun, 2013 [facility] [place] [facility] [address] [id number] [place] [address]- 2547 Jun, [facility] [place] [facility] [address] [id number] [place] [address]- 2548 Jun, [facility] [place] [facility] [address] [id number] [place] [address]- 9732 15 Jun, 2013 [facility] [place] [facility] [address] [id number] [place] [address]- 0163 14 Jun, 2013 [facility] [place] [facility] [address] [id number] [place] [address]- 0198 Jun, [facility] [place] [facility] [address] [id number] [place] [address]- 8499 Jun, [facility] [place] [facility] [address] [id number] [place] [address]- 2207 Jun, [facility] [place] [facility] [address] [id number] [place] [address]- 3840 Jun, [facility] [place] [facility] [address] [id number] [place] [address]- 5372 Jun, [facility] [place] [facility] [address] [id number] [place] [address]- 5659 May, [facility] [place] [facility] [address] [id number] [place] [address]- 0353 May, [facility] [place] [facility] [address] [id number] [place] [address]- 7597 May, [facility] [place] [facility] [address] [id number] [place] [address]- 4352 May, [facility] [place] [facility] [address] [id number] [place] [address]- 0439 May, [facility] [place] [facility] [address] [id number] [place] [address]- 4346 May, [facility] [place] [facility] [address] [id number] [place] [address]- 2695 May, [facility] [place] [facility] [address] [id number] [place] [address]- 5687 May, [facility] [place] [facility] [address] [id number] [place] [address]- 1123 May, [facility] [place] [facility] [address] [id number] [place] [address]- 6891 Apr, [facility] [place] [facility] [address] [id number] [place] [address] Apr, [facility] [place] [facility] [address] [id number], [place] [address]- 7823 Apr, [facility] [address] [id number] [place] [address]- 2013 Apr, [facility] [address] [id number] [place] [address]- 7465 Apr, [facility] [address] [facility] [id number] [place] [address]- 7796 Apr, [facility] [address] [id number] [place] [address]- 5945 Apr, [facility] [address] [id number] [place] [address]- 1431 March, [facility] [address] [id number] [place] [address]- 2736 Feb, [facility] [address] [id number] [place] [address]- 8075 Feb, [facility] [address] [id number] [place] [address]- 5870 Feb, [facility] [address] [id number] [place] [address]- 2488 Jan, [facility] [address] [facility] [id number] [place] [address]- 7113 Jan, [facility] [address] [id number] [place] [address]- 2280 Jan, [facility] [place] [facility] [address] [id number], [place] [address]- 5609 14 Jan, 2013 [facility] [place] [facility] [address] [id number] [place] [address]- 6949 12 Jan, 2013 [facility] [place] [facility] [address] [facility] [id number] [place] [address]- 5078 08 Jan, 2013 [facility] [place] [facility] [address] [facility] [id number] [place] [address]- 8941 07 Jan, 2013 [facility] [place] [facility] [address] [id number] [place] [address]- 8157 Jan, [facility] [place] [facility] [address] [id number] [place] [address]- 6342 28 Dec, 2012 [facility] [place] [facility] [address] [id number] [place] [address]- 2546 25 Dec, 2012 [facility] [place] [facility] [address] [id number] [place] [address] 2546 13 Dec, 2012 [facility] [place] [facility] [address] [id number] [place] [address]- 9147 11 Dec, 2012 [facility] [place] [facility] [address] [id number] [place] [address]- 8216 07 Dec, 2012 [facility] [place] [facility] [address] [id number] [place] [address]- 4421 06 Dec, 2012 [facility] [place] [facility] [address] [id number] [place] [address]- 0817 05 Dec, 2012 [facility] [place] [facility] [address] [id number] [place] [address]- 0273 Nov, [facility] [place] [facility] [address] [id number] [place] [address]- 8530 24 Nov, 2012 [facility] [place] [facility] [address] [id number] [place] [address]- 0513 Nov, [facility] [place] [facility] [address] [id number], [place] [address]- 9521 15 Nov, 2012 [facility] [place] [facility] [address] [id number] [place] [address]- 5448 Nov, [facility] [place] [facility] [address] [id number] [place] [address]- 6317 10 Nov, 2012 [facility] [place] [facility] [address] [id number], [place] [address]- 1837 02 Nov, 2012 [facility] [place] [facility] [address] [id number], [place] [address]- 0783 Oct, [facility] [place] [facility] [address] [id number] [place] [address]- 4276 Oct, [facility] [place] [facility] [address] [id number] [place] [address]- 1056 Oct, [facility] [place] [facility] [address] [facility] [id number] [place] [address]- 6946 Oct, [facility] [place] [facility] [address] [id number] [place] [address]- 4547 Oct, [facility] [place] [facility] [address] [id number] [place] [address]- 4852 Oct, [facility] [place] [facility] [address] [id number] [place] [address]- 1564 Oct, [facility] [place] [facility] [address] [id number] [place] [address]- 7161 Oct, [facility] [place] [facility] [address] [facility] [id number] [place] [address]- 1220 Oct, [facility] [place] [facility] [address] [facility] [id number] [place] [address]- 6339 Oct, [facility] [place] [facility] [address] [facility] [id number] [place] [address]- 4836 Oct, [facility] [place] [facility] [address] [facility] [id number] [place] [address]- 1404 Oct, [facility] [place] [facility] [address] [id number] [place] [address]- 1985 Sep, [facility] [place] [facility] [address] [id number] [place] [address]- 1426 Sep, [facility] [place] [facility] [address] [facility] [id number] [place] [address]- 7389 Sep, [facility] [place] [facility] [address] [facility] [id number] [place] [address]- 3827 Sep, [facility] [place] [facility] [address] [id number] [place] [address]- 0599 Sep, [facility] [place] [facility] [address] [id number] [place] [address]- 3458 Sep, [facility] [place] [facility] [address] [id number] [place] [address]- 6028 Sep, [facility] [place] [facility] [address] [id number] [place] [address]- 0276 Sep, [facility] [place] [facility] [address] [id number] [place] [address] Sep, [facility] [place] [facility] [address] [id number] [place] [address] Sep, [facility] [place] [facility] [address] [id number] [place] [address] Sep, [facility] [place] [facility] [address] [id number] [place] [address] Aug, [facility] [place] [facility] [address] [id number] [place] [address] Aug, [facility] [place] [facility] [address] [id number] [place] [address] Aug, [facility] [place] [facility] [address] [facility] [id number] [place] [address] Aug, [facility] [place] [facility] [address] [id number] [place] [address] Aug, [facility] [place] [facility] [address] [id number] [place] [address] Aug, [facility] [place] [facility] [address] [id number] [place] [address] Aug, [facility] [place] [facility] [address] [facility] [id number] [place] [address]67 Aug, [facility] [place] [facility] [address] [id number] [place] [address] Aug, [facility] [place] [facility] [address] [id number] [place] [address]117 Aug, [facility] [place] [facility] [address] [id number] [place] [address] Jul, [facility] [place] [facility] [address] [id number] [place] [address] Jul, [facility] [place] [facility] [address] [id number] [place] [address] Jul, [facility] [place] [facility] [address] [id number] [place] [address] 7069 Jul, [facility] [place] [facility] [address] [id number] [place] [address]- [address] Jun, [facility] [place] [facility] [address] [id number] [place] [address]- [address] Jun, [facility] [place] [facility] [address] [id number] [place] [address]- [address] Jun, [facility] [place] [facility] [address] [id number] [place] [address]- [address] Jun, [facility] [place] [facility] [address] [id number] [place] [address]- [address]993 Jun, [facility] [place] [facility] [address] [id number] [place] [address]- [address] Jun, [facility] [place] [facility] [address] [id number] [place] [address]- 8344 Jun, [facility] [place] [facility] [address] [id number] [place] [address] 24[address] May, [facility] [place] [facility] [address] [id number] [place] [address]- [address] May, [facility] [place] [facility] [address] [id number] [place] [address]- 1311 May, [facility] [place] [facility] [address] [id number] [place] [address]- 8186 May, [facility] [address] [id number] [place] [address] 30[address] May, [facility] [place] [facility] [address] [id number] [place] [address]- [address]93 Apr, [facility] [place] [facility] [address] [id number] [place] [address]- [address] Apr, [facility] [place] [facility] [address] [id number] [place] [address]- 0949 Apr, [facility] [place] [facility] [address] [id number] [place] [address] 4446 Apr, [facility] [place] [facility] [address] [id number] [place] [address]- 3436 Apr, [facility] [address] [id number] [place] [address]- [address] March, [facility] [address] [id number] [place] [address] March, [facility] [address] [id number] [place] [address]- [address]165 March, [facility] [address] [id number] [place] [address] March, [facility] [place] [facility] [address] [id number] [place] [address]- 3744 March, [facility] [place] [facility] [address] [id number] [place] [address] 1986 March, [facility] [place] [facility] [address] [id number] [place] [address]- 1466 March, [facility] [place] [facility] [address] [id number] [place] [address]- [address]326 March, [facility] [place] [facility] [address] [id number] [place] [address]- 6836 March, [facility] [place] [facility] [address] [id number] [place] [address]- 9[address] March, [facility] [address] [id number] [place] [address]- [address] 30 Feb, 2012 [facility] [place] [facility] [address] [id number] [place] [address]- [address]226 Feb, [facility] [place] [facility] [address] [id number] [place] [address]- [address] Feb, [facility] [address] [id number] [place] [address]- 1800 Feb, [facility] [place] [facility] [address] [id number] [place] [address]- 4020 Feb, [facility] [address] [id number] [place] [address]- [address]298 Feb, [facility] [address] [id number] [place] [address]- 0143 Feb, [facility] [place] [facility] [address] [id number] [place] [address]- [address]385 Feb, [facility] [place] [facility] [address] [id number] [place] [address]- [address] Feb, [facility] [place] [facility] [address] [id number] [place] [address] 96[address] Jan, [facility] [place] [facility] [address] [id number] [place] [address]- 0365 Jan, [facility] [place] [facility] [address] [id number] [place] [address]- 2228 Jan, [facility] [place] [facility] [address] [id number] [place] [address]- 7834 Jan, [facility] [place] [facility] [address] [id number] [place] [address]- 6097 Dec, [facility] [place] [facility] [address] [id number] [place] [address]- [address]46 Dec, [facility] [address] [facility] [id number], [place] [address] Nov, [facility] [address] [facility] [id number], [place] [address]- [address] Nov, [facility] [address] [facility] [id number], [place] [address]- [address] Nov, [facility] [address] [facility] [id number], [place] [address]- [address] Nov, [facility] [address] [facility] [id number], [place] [address]- [address] Nov, [facility] [address] [facility] [id number], [place] [address]- 9068 Oct, [facility] [id number], [place] [address] Oct, [facility] [id number], [place] [address] Oct, [facility] [id number] [address] Oct, [facility] [id number], [place] [address]- [address] Oct, [facility] [id number] [address] [address] Oct, [facility] [id number], [place] [address]- [address] Oct, [facility] [address] [facility] [id number] [address] Oct, [facility] [id number], [place] [id number] Sep, IMMUNIZATIONS No Known Immunizations SOCIAL HISTORY Never Assessed REASON FOR VISIT Pt to have surgery PLAN OF CARE VITAL SIGNS MEDICATIONS Unknown Medications RESULTS No Results PROCEDURES No Known procedures INSTRUCTIONS MEDICATIONS ADMINISTERED No Known Medications
[2018-05-05] MEDS ORDERED: fentaNYL INJECTION 100 MCG/2 ML AMP IVP ONE ×2 (05:30→06:15)
--- OUTSIDE RECORDS SUMMARY | 2018-05-05 05:30 | XMS REPORT ---
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 Name Role Phone SHANIQUE VEGA Unavailable PROBLEMS Type Condition ICD9-CM Code RWK62-TB Code Onset Dates Condition Status SNOMED Code Problem Other chronic pain G89.29 Active 13458620 Problem Type 2 diabetes mellitus without complication, without long-term current use of insulin E11.9 Active 301961885 Problem Low back pain M54.5 Active 472588505 Problem Hypertension I10 Active 82143528 Problem Coronary artery disease I25.10 Active 70588755 Problem Hyperlipidemia E78.5 Active 47384684 Problem Peripheral vascular disease I73.9 Active 227668293 Problem Insomnia G47.00 Active 688568744 Problem Reactive depression F32.9 Active 66119705 Problem Ventral hernia without obstruction or gangrene K43.9 Active 825099004 Problem Anxiety F41.9 Active 10240497 Problem Pharyngeal dysphagia R13.13 Active [id number] ALLERGIES No Information ENCOUNTERS Encounter Location Date Diagnosis [facility] [employer] [address] [facility] [place] [id number] Apr, Low back pain M54.5 [facility] [employer] [address] [place] [id number] Apr, Coccydynia M53.3 [facility] [address] [id number] [address] March, [facility] [address] [id number] [address] March, Other chronic pain G89.29 [facility] [address] [id number] [address] March, [facility] [address] [id number] [address] March, [facility] [address] [address] Feb, [facility] [address] [address] Feb, Other chronic pain G89.29 [facility] [address] [place] [id number] Feb, Other chronic pain G89.29 and Anxiety F41.9 [facility] [address] [address] Feb, [facility] [address] [address] Jan, [facility] [address] [address] 9[address] Jan, [facility] [address] [address] 17[address] Jan, [facility] [address]00565[address] [address] 1107 Jan, [facility] [address]65[address] [address] Dec, [facility] [employer] [address] [place] [id number] Dec, Peripheral vascular disease I73.9 ; 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 ; Other chronic pain G89.29 ; Anxiety F41.9 ; Reactive depression F32.9 ; Insomnia G47.00 and Type 2 diabetes mellitus without complication, without long-term current use of insulin E11.9 [facility] [id number] [address] Nov [facility] [id number] [id number] Nov, Anxiety F41.9 [facility] [address] [id number] [address] Nov, [facility] [address] [id number] [id number] Nov, Anxiety F41.9 [facility] [employer] [address] [place] [address] Nov, Status post surgery Z98.890 ; Confused R41.0 ; Anxiety F41.9 and Other chronic pain G89.29 [facility] [id number] [address] Nov, Other chronic pain G89.29 [facility] [address]00565[address] [address] Oct, [facility] [id number] [place] [id number] Oct, Other chronic pain G89.29 [facility] [address]65[address] [address] 75[address] Oct, Anxiety F41.9 [facility] [id number] [place] [id number] Sep, Other chronic pain G89.29 [facility] [id number] [place] [id number] Sep, [facility] [employer] [address] [place] [address] Aug, Dysuria R30.0 and Anxiety F41.9 [facility] [address] [id number] [address] Aug, [facility] [id number] [place] [address] [id number] Aug, Other chronic pain G89.29 [facility] [address] [id number] [address] 1486 Jul, Other chronic pain G89.29 [facility] [id number] [place] [id number] Jun, [facility] [id number] [address] Jun, Other chronic pain G89.29 [facility] [address]00565[address] [address] Jun, [facility] [address]00565[address] [address] May, Other chronic pain G89.29 [facility] [address]00565[address] [address] 8[address] Apr, Other chronic pain G89.29 [facility] [employer] [address] [place] [id number] Apr, Reactive depression F32.9 and Pharyngeal dysphagia R13.13 [facility] [id number] [place] [address] Apr, Urinary tract infection without hematuria, site unspecified N39.0 [facility] [address]00565100[place] [address] 62[address] March, Other chronic pain G89.29 [facility] [address]00565100[place] [address] 7[address] Feb, Other chronic pain G89.29 [facility] [address]00565100[place] [address] 77[address] Feb, [facility] [address] [id number] [address] Feb, [facility] [employer] [address] [place] [id number] Feb, Dysuria R30.0 and Ventral hernia without obstruction or gangrene K43.9 [facility] [address] [id number] [address] Jan, Other chronic pain G89.29 [facility] [id number] [place] [id number] Dec, Other chronic pain G89.29 [facility] [address]00565[address] [address] Nov, Other chronic pain G89.29 [facility] [address] [id number] Nov, Lymphadenitis I88.9 [facility] [id number] [place] [address] 7931 Nov, Other chronic pain G89.29 [facility] [address] [facility] [id number] [place] [address]- 0606 Nov, [facility] [id number] [place] [address] [id number] Nov, Other chronic pain G89.29 [facility] [address] [place] [id number] Oct, Low back pain M54.5 ; Hypertension I10 and Type 2 diabetes mellitus without complication, without long-term current use of insulin E11.9 [facility] [id number] [place] [address] 8637 Oct, [facility] [id number] [place] [address] 03511- 9812 Oct, [facility] [id number] [place] [address] 09089- 2606 Oct, [facility] [id number] [place] [address] 45359- 2819 Oct, [facility] [id number] [place] [address] 44669- 7703 Sep, [facility] [id number] [place] [address] 13120- 2434 Sep, [facility] [id number] [place] [address] 37393- 6640 Aug, Other chronic pain G89.29 [facility] [id number] [place] [address] 788333- 8786 Jul, [facility] [address] [address]- 3149 Jul, [facility] [address] [id number] [address]- 9881 Jul, [facility] [address] [address]- 5579 Jun, [facility] [address] [address]- 89[address] Jun, [facility] [address] [place] [address] Jun, Low back pain M54.5 ; Other chronic pain G89.29 and Coronary artery disease I25.10 [facility] [address] [facility] [id number] [address] 49[address] Jun, [facility] [address] [address]- 9417 May, [facility] [address] [address]- 4949 May, [facility] [address] [address]- 7823 May, Other chronic pain G89.29 [facility] [address] [address]- 6575 May, [facility] [address] [address]- 9446 Apr, [facility] [address] [address]- 1390 Apr, Acute cystitis without hematuria N30.00 [facility] [address] [address]- 2548 16 Apr, 2016 Acute cystitis without hematuria N30.00 ; Coronary artery disease I25.10 ; Low back pain M54.5 and Other chronic pain G89.29 [facility] [address] [id number] [address]- 2547 Apr, Other chronic pain G89.29 [facility] [address] [address]- 7826 March, Other chronic pain G89.29 [facility] [address] [address]- 3224 Feb, [facility] [address] [place] [address] 55122- 4155 Feb, Arthritis M19.90 [facility] [id number] [place] [address] 18045- 4283 Feb, [facility] [id number] [place] [address] 83850- 6465 Jan, [facility] [id number] [place] [address] 62744- 9531 Jan, [facility] [id number] [place] [address] 65743- 2131 Jan, Other chronic pain G89.29 [facility] [id number] [place] [address] 45074- 3706 Jan, Hypertension I10 ; Coronary artery disease I25.10 and Insomnia G47.00 [facility] [address] [place] [address] 33883- 6130 Jan, [facility] [id number] [place] [address] 51772- 6162 Dec, Right hip pain M25.551 [facility] [id number] [place] [address] 56448- 1481 Dec, [facility] [address] [address]- 2454 Dec, [facility] [id number] [place] [address] 46651- 6418 Dec, [facility] [address] [address]- 2128 Dec, Other chronic pain G89.29 [facility] [id number] [place] [address] 81078- 8726 Dec, [facility] [address] [address]- 3755 Nov, [facility] [address] [place] [address] 64724- 1002 Nov, Other chronic pain G89.29 [facility] [id number] [place] [address] 56509- 8623 Nov, Right hip pain M25.551 and Coronary artery disease I25.10 [facility] [id number] [place] [address] 82568- 3383 Nov, Other chronic pain G89.29 [facility] [id number] [place] [address] 36248- 7519 Oct, [facility] [id number] [place] [address] 38550- 3260 Oct, [facility] [id number] [place] [address] 68571- 6496 Sep, [facility] [id number] [place] [address] 17127- 0377 Sep, [facility] [id number] [place] [address] 56579- 8912 Aug, [facility] [address] [place] [address] 73093- 4643 Aug, Hypertension I10 ; Coronary artery disease I25.10 and Arthritis M19.90 [facility] [address] [address]- 7040 Jun, [facility] [id number] [place] [address] 14193- 6790 Jun, Essential hypertension, benign 401.1 ; Other chronic pain 338.29 and Chronic airway obstruction, not elsewhere classified [address] [facility] [address] [place] [address] 49211- 0108 Jun, [facility] [address] [id number] [place] [address]- 6248 Jun, [facility] [address] [id number] [place] [address]- 4602 Jun, [facility] [address] [id number] [place] [address]- 3274 May, [facility] [address] [id number] [place] [address]- 4130 May, [facility] [address] [id number] [place] [address]- 7838 Apr, [facility] [address] [id number] [place] [address]- 0441 Apr, [facility] [address] [id number] [place] [address]- 7574 Apr, [facility] [address] [id number] [place] [address]- 6329 March, [facility] [address] [id number] [place] [address]- 7858 March, [facility] [address] [id number] [place] [address]- 5952 March, [facility] [address] [id number] [place] [address]- 1590 March, [facility] [address] [id number] [place] [address]- 1614 March, Sialadenitis 527.2 [facility] [address] [id number] [place] [address]- 9301 Feb, [facility] [address] [id number] [place] [address]- 0637 Feb, [facility] [address] [id number] [place] [address]- 8905 Feb, [facility] [address] [id number] [place] [address]- 0227 14 Feb, 2015 [facility] [place] [facility] [address] [id number] [place] [address]- 4107 13 Feb, 2015 [facility] [place] [facility] [address] [facility] [id number] [place] [address]- 0917 19 Jan, 2015 [facility] [place] [facility] [address] [facility] [id number] [place] [address]- 1824 Jan, [facility] [place] [facility] [address] [facility] [id number] [place] [address]- 1443 10 Jan, 2015 [facility] [place] [facility] [address] [id number] [place] [address]- 1067 Jan, [facility] [place] [facility] [address] [facility] [id number] [place] [address]- 6832 Jan, [facility] [place] [facility] [address] [facility] [id number] [place] [address]- 1768 Jan, [facility] [place] [facility] [address] [facility] [id number] [place] [address]- 5096 Dec, [facility] [place] [facility] [address] [facility] [id number] [place] [address]- 3014 Dec, 2014 [facility] [place] [facility] [address] [facility] [id number] [place] [address]- 8837 Dec, 2014 [facility] [place] [facility] [address] [facility] [id number] [place] [address]- 3840 Dec, 2014 [facility] [place] [facility] [address] [facility] [id number] [place] [address]- 4767 Dec, 2014 [facility] [place] [facility] [address] [facility] [id number] [place] [address]- 1955 Dec, 2014 [facility] [place] [facility] [address] [facility] [id number] [place] [address]- 5366 Nov, [facility] [place] [facility] [address] [facility] [id number] [place] 2577 Nov, [facility] [place] [facility] [address] [id number] [place] [address]- 1294 Nov, [facility] [place] [facility] [address] [id number] [place] [address]- 2533 Nov, [facility] [place] [facility] [address] [id number] [place] [address]- 2269 Nov, [facility] [place] [facility] [address] [id number] [place] [address]- 1660 Nov, [facility] [place] [facility] [address] [id number] [place] [address]- 4763 Nov, [facility] [place] [facility] [address] [id number] [place] [address]- 0338 Nov, [facility] [place] [facility] [address] [id number] [place] [address]- 9327 Nov, [facility] [place] [facility] [address] [id number] [place] [address]- 3623 Nov, [facility] [place] [facility] [address] [id number] [place] [address]- 0803 Nov, [facility] [place] [facility] [address] [id number] [address]- 5318 Nov, [facility] [place] [facility] [address] [id number] [address]- 0261 Nov, [facility] [place] [facility] [address] [id number] [place] [address]- 6890 Nov, [facility] [place] [facility] [address] [id number] [place] [address]- 1692 Oct, [facility] [place] [facility] [address] [id number] [place] [address]- 6875 Oct, [facility] [place] [facility] [address] [id number] [place] [address]- 2890 Oct, [facility] [place] [facility] [address] [id number] [place] [address]- 3202 18 Oct, 2014 [facility] [place] [facility] [address] [id number] [place] [address]- 0059 18 Oct, 2014 [facility] [place] [facility] [address] [id number] [place] [address]- 2807 17 Oct, 2014 [facility] [place] [facility] [address] [id number] [place] [address]- 7683 17 Oct, 2014 [facility] [place] [facility] [address] [id number] [place] [address]- 0114 Oct, [facility] [place] [facility] [address] [id number] [place] [address]- 7891 Oct, [facility] [place] [facility] [address] [id number] [place] [address]- 6458 Sep, [facility] [place] [facility] [address] [id number] [place] [address]- 9514 Sep, [facility] [place] [facility] [address] [id number] [place] [address]- 9669 Sep, [facility] [place] [facility] [address] [id number] [place] [address]- 8159 Sep, [facility] [place] [facility] [address] [facility] [id number] [place] [address]- 6232 Sep, [facility] [place] [facility] [address] [id number] [place] [address]- 9014 Sep, [facility] [place] [facility] [address] [id number] [place] [address]- 7577 Sep, [facility] [place] [facility] [address] [id number] [place] [address]- 2540 Sep, [facility] [place] [facility] [address] [facility] [id number] [place] [address]- 4419 Sep, [facility] [place] [facility] [address] [facility] [id number] [place] [address]- 8835 Sep, [facility] [place] [facility] [address] [id number] [place] [address]- 9804 Sep, [facility] [place] [facility] [address] [id number] [place] [address]- 3667 Sep, [facility] [place] [facility] [address] [id number] [place] [address]- 1651 Aug, [facility] [place] [facility] [address] [id number] [place] [address]- 0104 Aug, [facility] [place] [facility] [address] [id number] [place] [address]- 5088 Aug, [facility] [place] [facility] [address] [id number] [place] [address]- 0574 Aug, [facility] [place] [facility] [address] [id number] [place] [address]- 0436 Aug, [facility] [place] [facility] [address] [id number] [place] [address]- 5988 Aug, [facility] [place] [facility] [address] [id number] [place] [address]- 5466 Aug, [facility] [place] [facility] [address] [id number] [place] [address]- 3653 17 Aug, 2014 [facility] [place] [facility] [address] [id number] [place] [address]- 9632 30 Jul, 2013 [facility] [place] [facility] [address] [id number] [place] [address]- 254 30 Sep, 2013 [facility] [place] [facility] [address] [id number] [place] [address] 2542 30 Sep, 2013 [facility] [place] [facility] [address] [id number] [place] [address] 2546 30 Sep, 2013 [facility] [place] [facility] [address] [id number] [place] [address]- 2544 25 Sep, 2013 [facility] [place] [facility] [address] [id number] [place] [address]- 4196 Jul, [facility] [place] [facility] [address] [id number] [place] [address] Jul, [facility] [place] [facility] [address] [id number] [place] [address] Jul, [facility] [place] [facility] [address] [id number] [place] [address] Jul, [facility] [place] [facility] [address] [id number] [place] [address] Jul, [facility] [place] [facility] [address] [id number] [place] [address] Jun, [facility] [place] [facility] [address] [id number] [place] [address] Jun, [facility] [place] [facility] [address] [id number] [place] [address] Jun, [facility] [place] [facility] [address] [id number] [place] [address] Jun, [facility] [place] [facility] [address] [id number] [place] [address] Jun, [facility] [place] [facility] [address] [id number] [place] [address] Jun, [facility] [place] [facility] [address] [id number] [place] [address] Jun, [facility] [place] [facility] [address] [id number] [place] [address] Jun, [facility] [place] [facility] [address] [id number] [place] [address] Jun, [facility] [place] [facility] [address] [id number] [place] [address] Jun, [facility] [place] [facility] [address] [id number] [place] [address] Jun, [facility] [place] [facility] [address] [id number] [place] [address]- [address] Jun, [facility] [place] [facility] [address] [id number] [place] [address] Jun, [facility] [place] [facility] [address] [id number] [place] [address] Jun, [facility] [place] [facility] [address] [id number] [place] [address]- [address] Jun, [facility] [place] [facility] [address] [id number] [place] [address]- [address] Jun, [facility] [place] [facility] [address] [id number] [place] [address] Jun, [facility] [place] [facility] [address] [id number] [place] [address] 26[address] Jun, [facility] [place] [facility] [address] [id number] [place] [address] Jun, [facility] [place] [facility] [address] [id number] [place] [address]- [address] Jun, [facility] [place] [facility] [address] [id number] [place] [address]- [address] Jun, [facility] [place] [facility] [address] [id number] [place] [address]- [address] Jun, [facility] [place] [facility] [address] [id number] [place] [address]36 May, [facility] [place] [facility] [address] [id number] [place] [address]- [address] May, [facility] [place] [facility] [address] [id number] [place] [address] May, [facility] [place] [facility] [address] [id number] [place] [address]- [address] May, [facility] [place] [facility] [address] [id number] [place] [address]- [address] May, [facility] [place] [facility] [address] [id number] [place] [address]- [address] May, 2013 [facility] [place] [facility] [address] [id number] [place] [address]- [address] May, [facility] [place] [facility] [address] [id number] [place] [address] May, [facility] [place] [facility] [address] [id number] [place] [address] May, [facility] [place] [facility] [address] [id number] [place] [address] May, [facility] [place] [facility] [address] [id number] [place] [address] May, [facility] [place] [facility] [address] [id number] [place] [address] May, [facility] [place] [facility] [address] [id number] [place] [address] May, [facility] [place] [facility] [address] [id number] [place] [address] Apr, [facility] [place] [facility] [address] [id number] [place] [address]- [address] Apr, [facility] [place] [facility] [address] [id number] [place] [address]- [address] Apr, [facility] [place] [facility] [address] [id number] [place] [address]- [address] Apr, [facility] [place] [facility] [address] [id number] [place] [address]- [address] Apr, [facility] [place] [facility] [address] [id number] [place] [address]- [address] Apr, [facility] [place] [facility] [address] [id number] [place] [address]- [address] Apr, [facility] [place] [facility] [address] [id number] [place] [address] Apr, [facility] [place] [facility] [address] [id number] [place] [address] Apr, [facility] [place] [facility] [address] [id number] [place] [id number]- 3582 March, [facility] [place] [facility] [address] [id number] [place] [address] 1182 March, [facility] [place] [facility] [address] [id number] [place] [address] 1172 March, [facility] [place] [facility] [address] [id number] [place] [address] 9638 March, [facility] [place] [facility] [address] [id number] [place] [address] 9229 March, [facility] [place] [facility] [address] [id number] [place] [address]- 8270 March, [facility] [place] [facility] [address] [id number] [place] [address]- 7993 March, [facility] [place] [facility] [address] [id number] [place] [address]- 6980 March, [facility] [place] [facility] [address] [id number] [place] [address]- 6837 March, [facility] [place] [facility] [address] [id number] [place] [address]- 9044 March, [facility] [place] [facility] [address] [id number] [place] [address]- 6957 March, [facility] [place] [facility] [address] [id number] [place] [address]- 8434 March, [facility] [place] [facility] [address] [id number] [place] [address]- 2423 March, [facility] [place] [facility] [address] [id number] [place] [address]- 7920 March, [facility] [place] [facility] [address] [id number] [place] [address]- 2531 March, [facility] [address] [id number] [place] [address]- 0150 March, [facility] [address] [id number] [place] [address]- 2677 March, [facility] [address] [id number] [place] [address]- 5636 March, [facility] [address] [id number] [place] [address]- 0225 March, [facility] [address] [id number] [place] [address]- 2334 March, [facility] [address] [id number] [place] [address]- 0627 Feb, [facility] [address] [id number] [place] [address]- 8566 Feb, [facility] [address] [id number] [place] [address]- 6838 Feb, [facility] [address] [id number] [place] [address]- 8651 Feb, [facility] [address] [id number] [place] [address]- 6530 Feb, [facility] [place] [facility] [address] [id number] [place] [address]- 0119 Feb, [facility] [address] [id number] [place] [address]- 4884 Feb, [facility] [place] [facility] [address] [id number] [place] [address]- 1328 Feb, [facility] [place] [facility] [address] [id number] [place] [address]- 6191 Jan, [facility] [place] [facility] [address] [id number] [place] [address]- 7198 Jan, [facility] [place] [facility] [address] [id number] [place] [address]- 9828 Jan, [facility] [place] [facility] [address] [id number] [place] [address]- 5944 Jan, [facility] [place] [facility] [address] [id number] [place] [address]- 7400 Jan, [facility] [place] [facility] [address] [id number] [place] [address]- 5024 Jan, [facility] [place] [facility] [address] [id number] [place] [address]- 5450 Jan, [facility] [place] [facility] [address] [id number] [place] [address]- 4528 Jan, [facility] [place] [facility] [address] [id number] [place] [address]- 4592 Jan, [facility] [place] [facility] [address] [id number] [place] [address]- 8915 Jan, [facility] [place] [facility] [address] [id number] [place] [address]- 1703 Dec, [facility] [place] [facility] [address] [id number] [place] [address]- 5688 Dec, [facility] [place] [facility] [address] [id number] [place] [address]- 3682 Dec, [facility] [place] [facility] [address] [id number] [place] [address]- 2974 Dec, [facility] [place] [facility] [address] [id number] [place] [address]- 6243 Dec, [facility] [place] [facility] [address] [id number] [place] [address]- 9718 Dec, [facility] [place] [facility] [address] [id number] [place] [address]- 7660 Dec, [facility] [place] [facility] [address] [id number] [place] [address]- 1839 Dec, [facility] [address] [id number] [place] [address]- 0689 Nov, [facility] [address] [id number] [place] [address]- 0958 Nov, [facility] [address] [id number] [place] [address]- 3016 Nov, [facility] [address] [id number] [place] [address]- 4606 Nov, [facility] [address] [id number] [place] [address]- 8589 Nov, [facility] [address] [id number] [place] [address]- 6240 Nov, [facility] [address] [id number] [place] [address]- 2483 Nov, [facility] [address] [id number] [place] [address]- 9243 Nov, [facility] [address] [id number] [place] [address]- 3302 Nov, [facility] [address] [id number] [place] [address]- 5792 Nov, [facility] [address] [id number] [place] [address]- 1142 Nov, [facility] [address] [id number] [place] [address]- 1398 Nov, [facility] [place] [facility] [address] [id number] [place] [address]- 6269 Nov, [facility] [place] [facility] [address] [id number] [place] [address]- 6788 Oct, [facility] [address] [id number] [place] [address]- 7639 Oct, [facility] [address] [id number] [place] [address]- 3912 Oct, [facility] [place] [facility] [address] [id number] [place] [address]- 3411 Oct, [facility] [place] [facility] [address] [id number] [place] [address]- 1156 Oct, [facility] [place] [facility] [address] [id number] [place] [address]- 7290 Oct, [facility] [place] [facility] [address] [id number] [place] [address] Oct, [facility] [place] [facility] [address] [id number] [place] 3687 Oct, [facility] [place] [facility] [address] [id number] [place] [address]- 7910 Oct, [facility] [place] [facility] [address] [id number] [place] [address]- 6128 Oct, [facility] [place] [facility] [address] [id number] [place] [address]- 6557 Oct, [facility] [place] [facility] [address] [id number] [place] [address]- 8911 Oct, [facility] [place] [facility] [address] [id number] [place] [address]- 0793 Oct, [facility] [place] [facility] [address] [id number] [place] [address]- 4454 Oct, [facility] [place] [facility] [address] [id number] [place] [address]- 2716 14 Sep, 2013 [facility] [place] [facility] [address] [id number] [place] [address]- 7526 14 Sep, 2013 [facility] [place] [facility] [address] [facility] [id number] [place] [address]- 4606 05 Sep, 2013 [facility] [place] [facility] [address] [id number] [place] [address]- 7456 Sep, [facility] [place] [facility] [address] [id number] [place] [address]- 1978 Sep, [facility] [place] [facility] [address] [id number] [place] [address]- 9691 Sep, [facility] [place] [facility] [address] [id number] [place] [address]- 7147 Sep, [facility] [place] [facility] [address] [id number] [place] [address]- 6766 Sep, [facility] [place] [facility] [address] [id number] [place] [address]- 0272 Sep, [facility] [place] [facility] [address] [id number] [place] [address]- 9597 Sep, [facility] [place] [facility] [address] [id number] [place] [address]- 3463 Aug, [facility] [place] [facility] [address] [id number] [place] [address]- 3714 Aug, [facility] [place] [facility] [address] [id number] [place] [address]- 3461 Aug, [facility] [place] [facility] [address] [facility] [id number] [place] [address]- 7082 Aug, [facility] [place] [facility] [address] [id number] [place] [address]- 1231 Aug, [facility] [place] [facility] [address] [id number] [place] [address]- 2868 Aug, [facility] [place] [facility] [address] [id number] [place] [address]- 4437 Aug, [facility] [place] [facility] [address] [facility] [id number] [place] [address]- 0815 Aug, [facility] [place] [facility] [address] [facility] [id number] [place] [address]- 2846 Aug, [facility] [place] [facility] [address] [id number] [place] [address]- 2494 22 Aug, 2012 [facility] [place] [facility] [address] [id number] [place] [address]- 8465 18 Aug, 2013 [facility] [place] [facility] [address] [id number] [place] [address]- 8210 18 Aug, 2013 [facility] [place] [facility] [address] [id number] [place] [address]- 5741 18 Aug, 2012 [facility] [place] [facility] [address] [id number] [place] [address]- 7554 18 Aug, 2012 [facility] [place] [facility] [address] [id number] [place] [address]- 4369 17 Aug, 2013 [facility] [place] [facility] [address] [id number] [place] [address]- 4656 14 Aug, 2013 [facility] [place] [facility] [address] [id number] [place] [address]- 9454 14 Aug, 2013 [facility] [place] [facility] [address] [id number] [place] [address]- 2229 01 Aug, 2013 [facility] [place] [facility] [address] [id number] [place] [address]- 0282 20 Jul, 2013 [facility] [place] [facility] [address] [id number] [place] [address]- 0906 19 Jul, 2013 [facility] [place] [facility] [address] [id number] [place] [address]- 4319 18 Jul, 2012 [facility] [place] [facility] [address] [id number] [place] [address]- 2543 11 Jul, 2013 [facility] [place] [facility] [address] [id number] [place] [address]- 3685 11 Jul, 2013 [facility] [place] [facility] [address] [id number] [place] [address]- 6223 Jun, [facility] [place] [facility] [address] [id number] [place] [address]- 5608 Jun, [facility] [place] [facility] [address] [id number] [place] [address]- 6628 Jun, [facility] [place] [facility] [address] [id number] [place] [address]- 1750 Jun, [facility] [place] [facility] [address] [id number] [place] [address]- 2469 Jun, [facility] [place] [facility] [address] [id number] [place] [address]- 0674 Jun, [facility] [place] [facility] [address] [id number] [place] [address]- 2790 Jun, [facility] [place] [facility] [address] [id number] [place] [address]- 5531 Jun, [facility] [place] [facility] [address] [id number] [place] [address]- 2331 Jun, [facility] [place] [facility] [address] [id number] [place] [address]- 2184 Jun, [facility] [place] [facility] [address] [id number] [place] [address]- 2050 May, [facility] [place] [facility] [address] [id number] [place] [address]- 1311 May, [facility] [place] [facility] [address] [id number] [place] [address]- 1393 May, [facility] [place] [facility] [address] [id number] [place] [address]- 6319 May, [facility] [place] [facility] [address] [id number] [place] [address]- 6167 May, [facility] [place] [facility] [address] [id number] [place] [address]- 7135 May, [facility] [place] [facility] [address] [id number] [place] [address]- 6842 May, [facility] [place] [facility] [address] [id number] [place] [address]- 3792 May, [facility] [address] [id number] [place] [address]- 1561 May, [facility] [place] [facility] [address] [id number] [place] [address]- 2947 Apr, [facility] [address] [id number] [place] [address]- 0656 Apr, [facility] [place] [facility] [address] [id number] [place] [address]- 3757 Apr, [facility] [address] [id number] [place] [address]- 2710 Apr, [facility] [address] [id number] [place] [address]- 4533 Apr, [facility] [address] [id number] [place] [address]- 0617 Apr, [facility] [address] [id number] [place] [address]- 8078 Apr, [facility] [place] [facility] [address] [id number] [place] [address]- 2856 March, [facility] [address] [id number] [place] [address]- 1641 Feb, [facility] [place] [facility] [address] [id number] [place] [address]- 4630 Feb, [facility] [place] [facility] [address] [id number] [place] [address]- 9449 Feb, [facility] [place] [facility] [address] [id number] [place] [address]- 0869 Jan, [facility] [place] [facility] [address] [id number] [place] 3274 Jan, [facility] [place] [facility] [address] [id number] [place] [address]- 3484 Jan, [facility] [place] [facility] [address] [id number] [place] [address]- 7563 14 Jan, 2013 [facility] [place] [facility] [address] [id number] [place] [address]- 0264 12 Jan, 2013 [facility] [place] [facility] [address] [id number] [place] [address]- 5712 08 Jan, 2013 [facility] [place] [facility] [address] [id number] [place] [address]- 6400 07 Jan, 2013 [facility] [place] [facility] [address] [id number] [place] [address]- 8974 04 Jan, 2013 [facility] [place] [facility] [address] [id number] [place] [address]- 7388 28 Dec, 2012 [facility] [place] [facility] [address] [id number] [place] [address]- 3127 25 Dec, 2012 [facility] [place] [facility] [address] [id number] [place] [address]- 9906 13 Dec, 2012 [facility] [place] [facility] [address] [id number] [place] [address]- 9423 Dec, [facility] [place] [facility] [address] [id number] [place] [address]- 2083 07 Dec, 2012 [facility] [place] [facility] [address] [id number] [place] [address]- 8179 06 Dec, 2012 [facility] [place] [facility] [address] [id number] [place] [address]- 4318 05 Dec, 2012 [facility] [place] [facility] [address] [id number] [place] [address]- 5428 Nov, [facility] [place] [facility] [address] [id number] [place] [address]- 9641 24 Nov, 2012 [facility] [place] [facility] [address] [id number] [place] [address]- 1260 Nov, [facility] [place] [facility] [address] [id number] [place] [address]- 4405 15 Nov, 2012 [facility] [address] [id number] [place] [address]- 9556 10 Nov, 2012 [facility] [address] [id number] [place] [address]- 6786 10 Nov, 2012 [facility] [address] [id number] [place] [address]- 8716 02 Nov, 2012 [facility] [address] [id number] [place] [address]- 9426 Oct, [facility] [address] [id number] [place] [address]- 9058 Oct, [facility] [address] [id number] [place] [address]- 1504 Oct, [facility] [address] [id number] [place] [address]- 9379 Oct, [facility] [address] [id number] [place] [address]- 7977 Oct, [facility] [address] [id number] [place] [address]- 0006 Oct, [facility] [address] [id number] [place] [address]- 2456 Oct, [facility] [address] [id number] [place] [address]- 1006 Oct, [facility] [place] [facility] [address] [id number] [place] [address]- 6276 Oct, [facility] [place] [facility] [address] [id number] [place] [address]- 7276 05 Oct, 2012 [facility] [place] [facility] [address] [id number] [place] [address]- 5466 Oct, [facility] [address] [id number] [place] [address]- 6646 Oct, [facility] [place] [facility] [address] [id number] [place] [address]- 3298 Sep, [facility] [place] [facility] [address] [id number] [place] [address]- 4512 Sep, [facility] [place] [facility] [address] [id number] [place] [address]- 8790 Sep, [facility] [place] [facility] [address] [id number] [place] [address]- 8695 Sep, [facility] [place] [facility] [address] [id number] [place] [address]- 3188 Sep, [facility] [place] [facility] [address] [id number] [place] [address]- 0284 Sep, [facility] [place] [facility] [address] [id number] [place] [address]- 1347 Sep, [facility] [place] [facility] [address] [id number] [place] [address]- 5928 Sep, [facility] [place] [facility] [address] [id number] [place] [address]- 9192 Sep, [facility] [place] [facility] [address] [id number] [place] [address]- 2521 Sep, [facility] [place] [facility] [address] [id number] [place] [address]- 6569 Sep, [facility] [place] [facility] [address] [id number] [place] [address]- 7809 Aug, [facility] [place] [facility] [address] [id number] [place] [address]- 3251 Aug, [facility] [place] [facility] [address] [id number] [place] [address]- 1497 Aug, [facility] [place] [facility] [address] [id number] [place] [address]- 1443 Aug, [facility] [place] [facility] [address] [id number] [place] [address]- 3466 Aug, [facility] [place] [facility] [address] [id number] [place] [address]- 1107 Aug, [facility] [place] [facility] [address] [id number] [place] [address]- 1808 Aug, [facility] [place] [facility] [address] [id number] [place] [address]- 5652 Aug, [facility] [place] [facility] [address] [id number] [place] [address]- 3469 Aug, [facility] [place] [facility] [address] [id number] [place] [address]- 5566 Aug, [facility] [place] [facility] [address] [id number] [place] [address]- 7412 22 Jul, 2012 [facility] [place] [facility] [address] [id number] [place] [address]- 4955 20 Jul, 2012 [facility] [place] [facility] [address] [id number] [place] [address]- 9171 10 Jul, 2012 [facility] [place] [facility] [address] [id number] [place] [address] 06 Jul, 2012 [facility] [place] [facility] [address] [id number] [place] [address] 30 Jun, 2012 [facility] [place] [facility] [address] [id number] [place] [address] Jun, [facility] [place] [facility] [address] [id number] [place] [address] 16 Jun, 2012 [facility] [place] [facility] [address] [id number] [place] [address] Jun, [facility] [place] [facility] [address] [id number] [place] [address] Jun, [facility] [place] [facility] [address] [id number] [place] [address] Jun, [facility] [place] [facility] [address] [id number] [place] [address] Jun, [facility] [address] [id number] [place] [address] May, [facility] [address] [id number] [place] [address] May, [facility] [address] [id number] [place] [address]84 May, [facility] [address] [id number] [place] [address] May, [facility] [address] [id number] [place] [address] May, [facility] [address] [id number] [place] [address] Apr, [facility] [address] [id number] [place] [address] Apr, [facility] [address] [id number] [place] [address] Apr, [facility] [address] [id number] [place] [address] 1584 Apr, [facility] [address] [id number] [place] [address] Apr, [facility] [place] [facility] [address] [id number] [place] [address] March, [facility] [address] [id number] [place] [address] March, [facility] [place] [facility] [address] [id number] [place] [address] March, [facility] [place] [facility] [address] [id number] [place] [address] March, [facility] [address] [id number] [place] [address] March, [facility] [address] [id number] [place] [address] March, [facility] [place] [facility] [address] [id number] [place] [address] 1541 March, [facility] [place] [facility] [address] [id number] [place] [address] March, [facility] [place] [facility] [address] [id number] [place] [address] March, [facility] [address] [id number] [place] [address] 39[address] March, [facility] [place] [facility] [address] [id number] [place] [address] Feb, [facility] [place] [facility] [address] [id number] [place] [address] 17[address] Feb, [facility] [place] [facility] [address] [id number] [place] [address] 9585 Feb, [facility] [place] [facility] [address] [id number] [place] [address] Feb, [facility] [place] [facility] [address] [id number] [place] [address] Feb, [facility] [place] [facility] [address] [id number] [place] [address] Feb, [facility] [place] [facility] [address] [id number] [place] [address] Feb, [facility] [place] [facility] [address] [id number] [place] [address] 39[address] Feb, [facility] [place] [facility] [address] [id number] [place] [address] 18[address] Feb, [facility] [place] [facility] [address] [id number] [place] [address]164 Jan, [facility] [place] [facility] [address] [id number] [place] [address] Jan, [facility] [address] [id number] [place] [address]- [address] Jan, [facility] [address] [id number] [place] [address] Jan, [facility] [address] [id number] [place] [address]- 22[address] Dec, [facility] [address] [id number] [place] [address] Dec, [facility] [address] [id number] [place] [address]396 Nov, [facility] [address] [id number] [place] [address] Nov, [facility] [address] [id number] [place] [address] 40[address] Nov, [facility] [address] [id number] [place] [address] 8659 Nov, [facility] [address] [id number] [place] [address]361 Nov, [facility] [address] [id number] [place] [address] Oct, [facility] [address] [id number] [place] [address]- 1775 Oct, [facility] [address] [id number] [place] [address]40 Oct, [facility] [address] [id number] [place] [address]- 3362 Oct, [facility] [place] [facility] [address] [id number] [place] [address]800 Oct, [facility] [address] [id number] [place] [address]- [address] Oct, [facility] [address] [facility] [id number] [place] [address] Oct, [facility] [address] [facility] [id number] [place] [address] Oct, [facility] [address] [facility] [id number] [place] [address] Sep, IMMUNIZATIONS No Known Immunizations SOCIAL HISTORY Never Assessed REASON FOR VISIT Refill request PLAN OF CARE VITAL SIGNS MEDICATIONS Unknown Medications RESULTS No Results PROCEDURES No Known procedures INSTRUCTIONS MEDICATIONS ADMINISTERED No Known Medications MEDICAL (GENERAL) HISTORY Type Description Date 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
--- OUTSIDE RECORDS SUMMARY | 2018-05-05 05:39 | XMS REPORT | Continuity of Care Document ---
Author Author [facility] Address Unknown Phone Unavailable Allergies Active [...] Allergy N/A N/A 05/19/2013 Yes diphenhydramine HCl [id number] Drug Allergy Unknown N/A 05/14/2016 Yes hydrochlorothiazide [id number] Drug Allergy Unknown N/A 05/14/2016 Yes varenicline tartrate [id number] Drug Allergy Unknown N/A 05/14/2016 Yes Sulfa (Sulfonamide Antibiotics) [id number] Drug Allergy Unknown N/A 2016 Medications There [...] 246.9 UNSPECIFIED DISORDER OF THYROID 11/06/2011 BAIG CABLE HOOKER, DESI HOUSOTN 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 11/06/2011 BAIG CABLE HOOKER, DESI HOUSTON 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 11/06/2011 BAIG CABLE HOOKER, DESI HOUSTON 496 CHRONIC OBSTRUCTIVE PULMONARY DISEASE 11/06/2011 BAIG CABLE HOOKER, DESI HOUSTON 683 ACUTE LYMPHADENITIS 11/06/2011 BAIG CABLE HOOKER, DESI HOUSTON 246.9 UNSPECIFIED DISORDER OF THYROID 11/06/2011 BAIG CABLE HOOKER, DESI HOUSTON 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 11/06/2011 BAIG CABLE HOOKER, DESI HOUSTON 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 11/06/2011 BAIG CABLE HOOKER, DESI HOUSTON 496 CHRONIC OBSTRUCTIVE PULMONARY DISEASE 11/06/2011 BAIG CABLE HOOKER, DESI HOUSTON 683 ACUTE LYMPHADENITIS 11/06/2011 TARI WOODSN, AUDIE R 246.9 UNSPECIFIED DISORDER OF THYROID 11/06/2011 TARI CABLE HOOKER, AUDIE R 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 11/06/2011 TARI CABLE HOOKER, AUDIE R 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 11/06/2011 TARI CABLE HOOKER, AUDIE R 496 CHRONIC OBSTRUCTIVE PULMONARY DISEASE 11/06/2011 TARI CABLE HOOKER, AUDIE R 683 ACUTE LYMPHADENITIS 11/06/2011 JIMMY WOODSN, SHAHNAZ S 246.9 UNSPECIFIED DISORDER OF THYROID 11/06/2011 JIMMY CABLE HOOKER, SHAHNAZ S 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 11/06/2011 JIMMY CABLE HOOKER SHAHNAZ S 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 11/06/2011 JIMMY CABLE HOOKER, SHAHNAZ S 496 CHRONIC OBSTRUCTIVE PULMONARY DISEASE [...] JOHNSON MD N 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 11/06/2011 WGEN JOHNSON MDY N 305.1 NONDEPENDENT TOBACCO USE [...] 246.9 UNSPECIFIED DISORDER OF THYROID 11/06/2011 JANINA PATTERN PUNCHERMASSIEL M 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 11/06/2011 JANINA PATTERN PUNCHERMINGOMASSIEL M 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 11/06/2011 JANINA PATTERN PUNCHER, MASSIEL M 496 CHRONIC OBSTRUCTIVE PULMONARY DISEASE 11/06/2011 JANINA PATTERN PUNCHER, MASSIEL M 683 ACUTE LYMPHADENITIS 11/06/2011 HAZEL [...] 296.30 MO DEPRESSIVE RECURRENT UNSPECIFIED 12/18/2011 JIMMY CABLE HOOKER, SHAHNAZ S 296.30 MO DEPRESSIVE RECURRENT UNSPECIFIED [...] MD 300.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 04/30/2012 SHARIF JOHNSNO MD 300.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 04/30/2012 MARIA [...] BUTLER DO V58.69 MEDICATION HIGH RISK 06/05/2012 CAORLINE MENDOZA MD 300.21 AN PANIC DIS W [...] 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 06/27/2012 BAIG CABLE HOOKER, DESI CONRAD 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 06/27/2012 SHARIF JOHNSON MD N 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 06/27/2012 SHARIF JOHNSON MD N 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 06/27/2012 JOVANNI CABLE HOOKERDESI Menjivar 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 06/27/2012 SHARIF JOHNSON MD N 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 06/27/2012 SHARIF JOHNSON MD N 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 06/27/2012 MASSIEL VGEA 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 06/27/2012 MIKE [...] CAROLINE MENDOZA MD 790.29 HYPERGLYCEMIA 12/18/2012 JOVANNI CABLE HOOKER, DESI CONRAD 272.4 HYPERLIPIDEMIA 12/18/2012 JOVANNI CABLE HOOKER, DESI CONRAD 790.29 HYPERGLYCEMIA 12/18/2012 JOVANNI CABLE HOOKER, DESI CONRAD 272.4 HYPERLIPIDEMIA 12/18/2012 JOVANNI CABLE HOOKER, DESI CONRAD 790.29 HYPERGLYCEMIA 12/18/2012 MARC CABLE HOOKER, AUDIE R 272.4 HYPERLIPIDEMIA 12/18/2012 MARC CABLE HOOKER, AUDIE R 790.29 HYPERGLYCEMIA 12/18/2012 JIMMY CABLE HOOKER, SHAHNAZ S 272.4 HYPERLIPIDEMIA 12/18/2012 JIMMY CABLE HOOKER, SHAHNAZ S 790.29 HYPERGLYCEMIA 12/18/2012 JACQUIE CABLE HOOKER, MAX T 272.4 HYPERLIPIDEMIA 12/18/2012 JACQUIE BURGOS, MAX T 790.29 HYPERGLYCEMIA 12/18/2012 JACQUIE CABLE HOOKER, MAX T 272.4 HYPERLIPIDEMIA 12/18/2012 JACQUIE CABLE HOOKER, MAX T 790.29 HYPERGLYCEMIA 12/18/2012 HAZEL DO, [...] BURGOS DESI SINGHH 272.4 HYPERLIPIDEMIA 12/18/2012 JOVANNI UBRGOS DESI CONRAD 790.29 HYPERGLYCEMIA 12/18/2012 SHARIF JOHNSON [...] CONRAD 271.3 GLUCOSE INTOLERANCE 09/22/2013 JOVANNI BURGOS EDSI CONRAD V05.8 ZOSTAVAX DX 09/22/2013 JOVANNI BURGOS [...] V65.42 COUNSELING - SMOKING CESSATION 11/12/2013 JIMMY CABLE HOOKER, SHAHNAZ S 486 PNEUMONIA UNSPECIFIED 11/12/2013 JACQUIE CABLE HOOKER, MAX T 486 PNEUMONIA UNSPECIFIED 11/12/2013 JACQUIE CABLE HOOKER, MAX T 486 PNEUMONIA UNSPECIFIED 11/12/2013 ILIR [...] ROLDAN SHARIF N 466.0 BRONCHITIS, ACUTE 12/11/2013 MASSEIL VEGA 466.0 BRONCHITIS, ACUTE 12/11/2013 MIKE HAZEL [...] ELIZABETH ROLDAN, SHARIF N 782.3 Edema 12/30/2013 ELIZABEHT ROLDAN, SHARIF Menjivar 782.3 Edema 12/30/2013 SHANIQUE [...] CORONARY ATHEROSCLEROSIS OF UNSPECIFIED TYPE OF VESSEL [place] OR GRAFT 09/15/2014 SHARIF JOHNSON MD 782.2 LOCALIZED SUPERFICIAL SWELLING MASS OR LUMP 09/15/2014 MASSIEL VEGA M 414.00 CORONARY ATHEROSCLEROSIS OF UNSPECIFIED TYPE OF VESSEL [place] OR GRAFT 09/15/2014 AMSSIEL VEGA M 782.2 LOCALIZED SUPERFICIAL SWELLING MASS OR LUMP 09/15/2014 HAZEL DO, MIKE K 414.00 CORONARY ATHEROSCLEROSIS OF UNSPECIFIED TYPE OF VESSEL [place] OR GRAFT 09/15/2014 HAZEL DO, MIKE K 782.2 LOCALIZED SUPERFICIAL SWELLING MASS OR LUMP 09/15/2014 SHARIF JOHNSON MD 414.00 CORONARY ATHEROSCLEROSIS OF UNSPECIFIED TYPE OF VESSEL [place] OR GRAFT 09/15/2014 SHARIF JOHNSON MD 782.2 LOCALIZED SUPERFICIAL SWELLING MASS OR LUMP 09/15/2014 SHANIQUE VEGA MD 414.00 CORONARY ATHEROSCLEROSIS OF UNSPECIFIED TYPE OF VESSEL [place] OR GRAFT 09/15/2014 SHANIQUE VEGA MD 782.2 LOCALIZED SUPERFICIAL SWELLING MASS OR LUMP 09/15/2014 SHARIF JOHNSON MD 414.00 CORONARY ATHEROSCLEROSIS OF UNSPECIFIED TYPE OF VESSEL [place] OR GRAFT 09/15/2014 SHARIF JOHNSON MD 782.2 LOCALIZED SUPERFICIAL SWELLING MASS OR LUMP 09/15/2014 SHARIF JOHNSON MD 414.00 CORONARY ATHEROSCLEROSIS OF UNSPECIFIED TYPE OF VESSEL [place] OR GRAFT 09/15/2014 SHARIF JOHNSON MD 782.2 LOCALIZED SUPERFICIAL SWELLING MASS OR LUMP 09/15/2014 SHANIQUE VEGA MD 414.00 CORONARY ATHEROSCLEROSIS OF UNSPECIFIED TYPE OF VESSEL [place] OR GRAFT 09/15/2014 SHANIQUE VEGA MD2.2 LOCALIZED [...] FACP CCDS Ot 440.20 12/28/2014 BISHNU ROLDAN [facility] CCD[facility] Ot 440.4 12/28/2014 [facility]OLD[facility] CCDS Ot 441.4 12/28/2014 [facility]OLD[facility] CCDS Ot 786.09 12/28/2014 BISHNU ROLDAN [facility], [facility] CCDS Ot V58.69 02/07/2015 SASHA [...] SASHA ROLDAN, MYRNA E Ot 414.01 02/08/2015 SSAHA ROLDAN, MYRNA E Ot 427.31 02/08/2015 SASHA [...] ROLDAN, MYRNA E Ot V15.82 02/08/2015 SASHA ORLDAN, MYRNA E Ot V45.81 02/08/2015 SASHA ROLDAN, [...] ROLDAN, MYRNA E Ot 715.35 02/11/2015 SASHA RLODAN, MYRNA E Ot 721.90 02/11/2015 SASHA ROLDAN, MYRNA E Ot 733.00 02/11/2015 SASHA ROLDAN, MYRNA E Ot 786.09 02/11/2015 SASHA ROLDAN, MYNRA E Ot 788.43 02/11/2015 SASHA ROLDAN, MYRNA [...] MAX DHILLON Ot 424.1 02/17/2015 MAX DHILLON LIME SLAKER Ot 785.2 02/17/2015 MAX DHILLON LIME SLAKER Ot 786.05 02/17/2015 ANDRE HERNANDEZ DO Elroy Ot 715.91 02/17/2015 ANDRE HERNANDEZ DO [place] Ot 727.61 02/17/2015 DIANNA MACHADO MD Ot 278.00 02/17/2015 DIANNA MACHADO MD Ot 721.3 02/17/2015 DIANNA MACHADO MD Ot 724.6 02/17/2015 DIANNA MACHADO MD Ot 729.1 02/17/2015 DIANNA MACHADO MD Ot V58.69 02/17/2015 DIANNA MAHCADO MD Ot V85.35 02/17/2015 DIANNA MACHADO MD [...] ROLDAN, MYRNA E Ot 496 02/17/2015 SASHA ORLDAN, MYRNA E Ot 530.81 02/17/2015 SASHA ROLDAN, [...] ROLDAN, MYRNA E Ot 715.35 02/17/2015 SASHA RODLAN, MYRNA E Ot 721.90 02/17/2015 SASHA ROLDAN, MYRNA E Ot 733.00 02/17/2015 SASHA ROLDAN, MYRNA E Ot 786.09 02/17/2015 SASHA ROLDAN, MYRNA E Ot 788.43 02/17/2015 SASHA ROLDAN, MYRNA E Ot V15.82 02/17/2015 SASHA ROLDAN, MYRNA E Ot V45.81 02/17/2015 SASHA ROLDAN, MYRNA E Ot V46.2 02/17/2015 SSAHA ROLDAN, MYRNA E Ot V57.89 02/17/2015 SASHA [...] SASHA ROLDAN, MYRNA E Ot 414.01 02/19/2015 SSAHA ROLDAN, MYRNA E Ot 427.31 02/19/2015 SASHA [...] MYRNA E Ot 414.01 02/24/2015 SASHA ROLDAN, MRYNA E Ot 427.31 02/24/2015 SASHA ROLDAN, MYRNA [...] MD Ot 724.4 02/27/2015 MAX DHILLON Andre LIME SLAKER Ot 401.1 02/27/2015 JACQUIE MAX Andre LIME SLAKER Ot 424.1 02/27/2015 JACQUIEMAX LIME SLAKER Ot 785.2 02/27/2015 JACQUIE MAX Adnre LIME SLAKER Ot 786.05 02/27/2015 MARYANDRE Garcia DO Ot [...] ROLDAN, SHARIF N Ot 276.1 03/13/2015 ELIZABETH ORLDAN, SHARIF N Ot 276.8 03/13/2015 ELIZABETH ROLDAN, [...] SHARIF N Ot 305.1 03/15/2015 ELIZABETH ROLDAN, SHARFI N Ot 311 03/15/2015 ELIZABETH ROLDAN, SHARIF [...] MENDOZA MD Ot 724.4 12/07/2015 MAX DHILLON LIME SLAKER Ot 401.1 12/07/2015 MAX DHILLON LIME SLAKER Ot 424.1 12/07/2015 MAX DHILLON LIME SLAKER Ot 785.2 12/07/2015 MAX DHILLON Ot 786.05 [...] MD, Ot I25.10 ATHSCL HEART DISEASE OF [place] CORONARY 05/16/2016 PRUDENCE SHAW MD Ot I71.4 [...] INCONTINENCE 11/28/2016 LUL NORWOOD MD, Ot Z79.84 PRISON (CURRENT) USE OF ORAL HYPOGLYC 11/29/2016 LUL NORWOOD MD Ot E11.9 TYPE 2 DIABETES MELLITUS WITHOUT COMPLIC 11/29/2016 LUL NORWOOD MD, Ot N32.81 OVERACTIVE BLADDER 11/29/2016 LUL NORWOOD MD, Ot 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 (ISD) 11/29/2016 LUL NORWOOD MD, Ot 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 11/29/2016 LUL NORWOOD MD, Ot Z79.84 GROUND INSTRUCTOR BASIC (CURRENT) USE OF ORAL HYPOGLYC 12/03/2016 LUL NORWOOD MD Ot E11.9 TYPE 2 DIABETES MELLITUS WITHOUT COMPLIC 12/03/2016 LUL NORWOOD MD, Ot N32.81 OVERACTIVE BLADDER 12/03/2016 LUL NORWOOD MD, Ot 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 (ISD) 12/03/2016 LUL NORWOOD MD, Ot 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 12/03/2016 LUL NORWOOD MD, Ot Z79.84 GROUND INSTRUCTOR BASIC (CURRENT) USE OF ORAL HYPOGLYC 02/07/2017 CUCO [...] CCDS Ot I25.10 ATHSCL HEART DISEASE OF [place] CORONARY 10/08/2017 BISHNU ROLDAN FACC, ALI FACP [...] CCDS Ot I25.10 ATHSCL HEART DISEASE OF [place] CORONARY 10/08/2017 CHELLE GOETZ MD, FACC FACP CCDS Ot I48.0 PAROXYSMAL ATRIAL FIBRILLATION 10/08/2017 BISHNU ROLDAN FACC, CHELLE FACP CCDS Ot I65.29 OCCLUSION AND STENOSIS OF UNSPECIFIED CA 10/15/2017 BISHNU ROLDAN FACC ALI FACP CCDS Ot I11.0 HYPERTENSIVE HEART DISEASE WITH HEART FA 10/15/2017 CHELLE GOETZ MD, FACC FACP CCDS Ot I25.10 ATHSCL HEART DISEASE OF [place] CORONARY 10/15/2017 CHELLE GOETZ MD, FACC FACP [...] MD, FACC FACP CCDS Ot Z79.899 OTHER PRISON (CURRENT) DRUG THERAPY 10/15/2017 CHELLE GOETZ MD, [...] CCDS Ot I25.10 ATHSCL HEART DISEASE OF [place] CORONARY 10/26/2017 BISHNU ROLDAN FACC ALI FACP CCDS Ot I48.0 PAROXYSMAL ATRIAL FIBRILLATION 10/26/2017 CHELLE GOETZ MD, FACC FACP CCDS Ot I71.4 ABDOMINAL AORTIC ANEURYSM, WITHOUT RUPTU 10/29/2017 CHELLE GOETZ MD, FACC FACP CCDS Ot E78.4 OTHER HYPERLIPIDEMIA 10/29/2017 BISHNU ROLDAN FACC, ALI FACP CCDS Ot I10 ESSENTIAL (PRIMARY) HYPERTENSION 10/29/2017 BISHNU ROLDAN FACC, CHELLE FACP CCDS Ot I25.10 ATHSCL HEART DISEASE OF [place] CORONARY 10/29/2017 CHELLE GOETZ MD, FACC FACP CCDS Ot I48.0 PAROXYSMAL ATRIAL FIBRILLATION 10/29/2017 CHELLE GOETZ MD, FACC FACP CCDS Ot I71.4 ABDOMINAL AORTIC ANEURYSM, WITHOUT RUPTU 10/29/2017 BISHNU ROLDAN FACC, ALI FACP CCDS Ot E78.5 HYPERLIPIDEMIA, UNSPECIFIED 10/29/2017 BISHNU ROLDAN FACC, ALI FACP CCDS Ot I10 ESSENTIAL (PRIMARY) HYPERTENSION 10/29/2017 BISHNU ROLDAN FACC, ALI FACP CCDS Ot I25.10 ATHSCL HEART DISEASE OF [place] CORONARY 10/29/2017 BISHNU ROLDAN FACC, ALI FACP [...] CCDS Ot I25.10 ATHSCL HEART DISEASE OF [place] CORONARY 10/29/2017 BISHNU HDEZC, ALI FACP CCDS Ot I48.0 PAROXYSMAL ATRIAL FIBRILLATION 10/29/2017 BISHNU HDEZC, ALI FACP CCDS Ot I65.29 OCCLUSION AND STENOSIS OF UNSPECIFIED CA 11/05/2017 BISHNU ROLDAN FACC, ALI FACP CCDS Ot E78.4 OTHER HYPERLIPIDEMIA 11/05/2017 BISHNU ROLDAN FACC, ALI FACP CCDS Ot I10 ESSENTIAL (PRIMARY) HYPERTENSION 11/05/2017 BISHNU HDEZC, ALI FACP CCDS Ot I25.10 ATHSCL HEART DISEASE OF [place] CORONARY 11/05/2017 BISHNU ROLDAN FACC, ALI FACP CCDS Ot I48.0 PAROXYSMAL ATRIAL FIBRILLATION 11/05/2017 BISHNU ROLDAN FACC, ALI FACP CCDS Ot I71.4 ABDOMINAL AORTIC ANEURYSM, WITHOUT RUPTU 11/07/2017 BISHNU ROLDAN FACC, ALI FACP CCDS Ot E78.4 OTHER HYPERLIPIDEMIA 11/07/2017 BISHNU ROLDAN FACC, ALI FACP CCDS Ot I10 ESSENTIAL (PRIMARY) HYPERTENSION 11/07/2017 BISHNU ROLDAN FACC, ALI FACP CCDS Ot I25.10 ATHSCL HEART DISEASE OF [place] CORONARY 11/07/2017 BISHNU ROLDAN FACC, ALI FACP CCDS Ot I48.0 PAROXYSMAL ATRIAL FIBRILLATION 11/07/2017 BISHNU ROLDAN FACC, ALI FACP CCDS Ot I71.4 ABDOMINAL AORTIC ANEURYSM, WITHOUT RUPTU 11/08/2017 BISHNU ROLDAN FACC, ALI FACP CCDS Ot E78.5 HYPERLIPIDEMIA, UNSPECIFIED 11/08/2017 BISHNU HDEZC, ALI FACP CCDS Ot I10 ESSENTIAL (PRIMARY) HYPERTENSION 11/08/2017 BISHNU ROLDAN FACC, ALI FACP CCDS Ot I25.10 ATHSCL HEART DISEASE OF [place] CORONARY 11/08/2017 BISHNU ROLDAN FACC, ALI FACP [...] CCDS Ot I25.10 ATHSCL HEART DISEASE OF [place] CORONARY 11/08/2017 BISHNU ROLDAN FACC, ALI FACP [...] CCDS Ot I25.10 ATHSCL HEART DISEASE OF [place] CORONARY 11/15/2017 BISHNU ROLDAN FACC, ALI FACP [...] FOR OTHER PREPROCEDURAL EXAMIN 11/26/2017 SATHISH ABAD LIME SLAKER Ot 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 11/26/2017 SATHISH ABAD LIME SLAKER Ot 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 11/26/2017 SATHISH ABAD LIME SLAKER Ot I71.4 ABDOMINAL AORTIC ANEURYSM, WITHOUT RUPTU 11/26/2017 SATHISH ABAD LIME SLAKER Ot K42.9 UMBILICAL HERNIA WITHOUT OBSTRUCTION OR 11/26/2017 SATHISH ABAD LIME SLAKER Ot K76.89 OTHER SPECIFIED DISEASES OF LIVER 11/26/2017 SATHISH ABAD LIME SLAKER Ot N28.1 CYST OF KIDNEY, ACQUIRED 11/26/2017 [...] MD, Ot I25.10 ATHSCL HEART DISEASE OF [place] CORONARY 11/26/2017 LUL NORWOOD MD, Ot J44.9 [...] ADULT 11/26/2017 LUL NORWOOD MD, Ot Z79.01 GROUND INSTRUCTOR BASIC (CURRENT) USE OF ANTICOAGULANT 11/26/2017 LUL NORWOOD MD, Ot Z79.82 PRISON (CURRENT) USE OF ASPIRIN 11/26/2017 LUL NORWOOD MD, Ot Z79.899 OTHER PRISON (CURRENT) DRUG THERAPY 11/26/2017 LUL NORWOOD MD, [...] MD, Ot I25.10 ATHSCL HEART DISEASE OF [place] CORONARY 11/27/2017 PRUDENCE SHAW MD, Ot I48.0 [...] INITI 11/27/2017 PRUDENCE SHAW MD, Ot Z79.01 GROUND INSTRUCTOR BASIC (CURRENT) USE OF ANTICOAGULANT 11/27/2017 PRUDENCE SHAW MD Ot Z79.82 PRISON (CURRENT) USE OF ASPIRIN 11/27/2017 PRUDENCE SHAW MD, Ot Z79.84 PRISON (CURRENT) USE OF ORAL HYPOGLYC 11/27/2017 PRUDENCE SHAW MD, Ot Z79.899 OTHER GROUND INSTRUCTOR BASIC (CURRENT) DRUG THERAPY 11/27/2017 PRUDENCE SAHW MD, Ot Z87.891 PERSONAL HISTORY OF NICOTINE DEPENDENCE 11/27/2017 PRUDENCE SHAW MD Ot 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 BYPASS GRAFT 11/27/2017 PRUDENCE SHAW MD, Ot Z96.641 PRESENCE OF RIGHT ARTIFICIAL HIP JOINT 12/03/2017 SATHISH ABAD LIME SLAKER Ot 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 12/03/2017 BAIMASATHISH L LIME SLAKER Ot 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 12/03/2017 SATHISH ABAD L LIME SLAKER Ot I71.4 ABDOMINAL AORTIC ANEURYSM, WITHOUT RUPTU 12/03/2017 BAIMASATHISH L LIME SLAKER Ot I77.2 RUPTURE OF ARTERY 12/03/2017 BAIMASATHISH L LIME SLAKER Ot J43.9 EMPHYSEMA, UNSPECIFIED 12/03/2017 BAIMASATHISH L LIME SLAKER Ot 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 12/08/2017 BAIMASATHISH L LIME SLAKER Ot 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 12/08/2017 KEVONMASATHISH L LIME SLAKER Ot 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 12/08/2017 BAISATHISH HOUSE L LIME SLAKER Ot I71.4 ABDOMINAL AORTIC ANEURYSM, WITHOUT RUPTU 12/08/2017 BAIMASATHISH L LIME SLAKER Ot I77.2 RUPTURE OF ARTERY 12/08/2017 BAIMASATHISH L LIME SLAKER Ot J43.9 EMPHYSEMA, UNSPECIFIED 12/08/2017 BAIMAGREYSONSATHISH L LIME SLAKER Ot 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 AT [...] MD Ot I25.10 ATHSCL HEART DISEASE OF [place] CORONARY 2017 JESSICA JENKINS MD Ot J44.9 [...] STRIKE 2017 JESSICA JENKINS MD Ot Z79.01 GROUND INSTRUCTOR BASIC (CURRENT) USE OF ANTICOAGULANT 2017 JESSICA JENKINS MD Ot Z79.02 PRISON (CURRENT) USE OF ANTITHROMBOTI 2017 JESSICA JENKINS MD Ot Z79.82 PRISON (CURRENT) USE OF ASPIRIN 2017 JESSICA JENKINS MD, Ot Z79.84 PRISON (CURRENT) USE OF ORAL HYPOGLYC 2017 JESSICA [...] MD, Ot I25.10 ATHSCL HEART DISEASE OF [place] CORONARY 12/17/2017 JESSICA JENKINS MD, Ot J44.9 [...] STRIKE 12/17/2017 JESSICA JENKINS MD Ot Z79.01 GROUND INSTRUCTOR BASIC (CURRENT) USE OF ANTICOAGULANT 12/17/2017 JESSICA JENKINS MD Ot Z79.02 PRISON (CURRENT) USE OF ANTITHROMBOTI 12/17/2017 JESSICA JENKINS MD, Ot Z79.82 GROUND INSTRUCTOR BASIC (CURRENT) USE OF ASPIRIN 12/17/2017 JESSICA JENKINS MD, Ot Z79.84 PRISON (CURRENT) USE OF ORAL HYPOGLYC 12/17/2017 JESSICA [...] PRESENCE OF UROGENITAL IMPLANTS 12/23/2017 SATHISH ABAD LIME SLAKER Ot I65.23 OCCLUSION AND STENOSIS OF BILATERAL [place] 12/23/2017 SATHISH ABAD LIME SLAKER Ot I70.201 UNSP ATHSCL [place] [facility] 12/[facility]/2017 SATHISH ABAD L LIME SLAKER Ot I71.4 ABDOMINAL AORTIC ANEURYSM, WITHOUT RUPTU 12/23/2017 KEVONSATHISH HOUSE L LIME SLAKER Ot K42.9 UMBILICAL HERNIA WITHOUT OBSTRUCTION OR 12/23/2017 BAIGREYSON HOUSEHER L LIME SLAKER Ot K76.89 OTHER SPECIFIED DISEASES OF LIVER 12/23/2017 JENNIFFER SATHISH L LIME SLAKER Ot N28.1 CYST OF KIDNEY, ACQUIRED 12/24/2017 MARCIA LUI MD Ot 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 12/24/2017 MARCIA LUI MD Ot Z01.810 ENCOUNTER FOR PREPROCEDURAL CARDIOVASCUL 12/24/2017 MARCIA LUI MD Ot Z01.811 ENCOUNTER FOR PREPROCEDURAL RESPIRATORY 12/24/2017 MARCIA LUI MD Ot Z01.812 ENCOUNTER FOR PREPROCEDURAL LABORATORY E 12/24/2017 JENNIFFER SATHISH L LIME SLAKER Ot 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 12/24/2017 KEVONLACY SATHISH L LIME SLAKER Ot 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[place] ARTERIES OF [facility] 12/24/2017 KEVONSATHISH HOUSE L LIME SLAKER Ot I71.4 ABDOMINAL AORTIC ANEURYSM, WITHOUT RUPTU 12/24/2017 KEVONLACY SATHISH L LIME SLAKER Ot I77.2 RUPTURE OF ARTERY 12/24/2017 KEVONLACY SATHISH L LIME SLAKER Ot J43.9 EMPHYSEMA, UNSPECIFIED 12/24/2017 KEVONSATHISH HOUSE L LIME SLAKER Ot 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 01/07/2018 KEVONLACY SATHISH L LIME SLAKER Ot 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 01/07/2018 SATHISH ABAD L LIME SLAKER Ot I70.201 UNSP ATHSCL [place] ARTERIES OF [facility] 01/07/2018 KEVONSATHISH HOUSE L LIME SLAKER Ot I71.4 ABDOMINAL AORTIC ANEURYSM, WITHOUT RUPTU 01/07/2018 KEVONLACY SATHISH L LIME SLAKER Ot K42.9 UMBILICAL HERNIA WITHOUT OBSTRUCTION OR 01/07/2018 SATHISH ABAD LIME SLAKER Ot K76.89 OTHER SPECIFIED DISEASES OF LIVER 01/07/2018 SATHISH ABAD LIME SLAKER Ot N28.1 CYST OF KIDNEY, ACQUIRED 01/08/2018 SATHISH ABAD LIME SLAKER Ot 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 01/08/2018 SATHISH ABAD LIME SLAKER Ot 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 01/08/2018 SATHISH ABAD LIME SLAKER Ot I71.4 ABDOMINAL AORTIC ANEURYSM, WITHOUT RUPTU 01/08/2018 SATHISH ABAD LIME SLAKER Ot I77.2 RUPTURE OF ARTERY 01/08/2018 SATHISH ABAD LIME SLAKER Ot J43.9 EMPHYSEMA, UNSPECIFIED 01/08/2018 SATHISH ABAD LIME SLAKER Ot 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 01/16/2018 MARCIA LUI MD Ot 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 01/16/2018 MARCIA LUI MD F Ot Z01.810 ENCOUNTER [...] CCDS Ot I25.10 ATHSCL HEART DISEASE OF [place] CORONARY 01/28/2018 BISHNU MD FACC, ALI FACP [...] ABDOMINAL AORTIC ANEURYSM, WITHOUT RUPTU 01/28/2018 BISHNU ROLDAN FACC, CHELLE FACP CCDS Ot I73.9 PERIPHERAL VASCULAR DISEASE, UNSPECIFIED 01/28/2018 BISHNU ROLDAN FACC, CHELLE FACP CCDS Ot J44.9 CHRONIC OBSTRUCTIVE PULMONARY DISEASE, U 01/28/2018 BISHNU ROLDAN FACC, ALI FACP CCDS Ot Z79.899 OTHER GROUND INSTRUCTOR BASIC (CURRENT) DRUG THERAPY 01/28/2018 BISHNU ROLDAN FACC, CHELLE FACP CCDS Ot Z87.891 PERSONAL HISTORY OF NICOTINE DEPENDENCE 01/28/2018 BISHNU ROLDAN FACC, ALI FACP CCDS Ot Z88.1 ALLERGY STATUS TO OTHER ANTIBIOTIC AGENT 01/28/2018 BISHNU ROLDAN FACC, CHELLE FACP CCDS Ot Z88.2 ALLERGY STATUS TO SULFONAMIDES STATUS 01/28/2018 BISHNU ROLDAN FACC, CHELLE FACP CCDS Ot Z88.8 ALLERGY STATUS TO [facility] DRUG/MEDS/BIOL SUB 01/28/2018 BISHNU ROLDAN FACC, CHELLE [...] CCDS Ot I25.10 ATHSCL HEART DISEASE OF [place] CORONARY 03/11/2018 BISHNU ROLDAN FACC, ALI FACP CCDS Ot I48.0 PAROXYSMAL ATRIAL FIBRILLATION 03/11/2018 BISHNU ROLDAN FACC, ALI FACP CCDS Ot I71.4 ABDOMINAL AORTIC ANEURYSM, WITHOUT RUPTU 03/11/2018 BISHNU ROLDAN FACC, ALI FACP CCDS Ot R06.02 SHORTNESS OF BREATH 03/11/2018 BISHNU ROLDAN FACC, ALI FACP CCDS Ot R53.1 WEAKNESS 03/13/2018 SHANIQUE VEGA MD Ot R82.90 UNSPECIFIED ABNORMAL FINDINGS IN URINE 03/20/2018 SHANIQUE VEGA MD Ot R82.90 UNSPECIFIED ABNORMAL [...] CCDS Ot I25.10 ATHSCL HEART DISEASE OF [place] CORONARY 03/25/2018 BISHNU ROLDAN FACC, ALI FACP CCDS Ot I48.0 PAROXYSMAL ATRIAL FIBRILLATION 03/25/2018 BISHNU ROLDAN FACC, ALI FACP CCDS Ot I71.4 ABDOMINAL AORTIC ANEURYSM, WITHOUT RUPTU 03/25/2018 BISHNU ROLDAN FACC, ALI FACP CCDS Ot R06.02 SHORTNESS OF BREATH 03/25/2018 BISHNU ROLDAN FACC, ALI FACP CCDS Ot R53.1 WEAKNESS 04/01/2018 BISHNU ROLDAN FACC, ALI FACP CCDS Ot E78.00 PURE HYPERCHOLESTEROLEMIA, UNSPECIFIED 04/01/2018 BISHNU ROLDAN FACC, ALI FACP CCDS Ot I10 ESSENTIAL (PRIMARY) HYPERTENSION 04/01/2018 BISHNU ROLDAN FACC, ALI FACP CCDS Ot I25.10 ATHSCL HEART DISEASE OF [place] CORONARY 04/01/2018 BISHNU ROLDAN FACC, ALI FACP CCDS Ot I48.0 PAROXYSMAL ATRIAL FIBRILLATION 04/01/2018 BISHNU ROLDAN FACC, ALI FACP CCDS Ot I70.1 ATHEROSCLEROSIS OF RENAL ARTERY 04/01/2018 BISHNU ROLDAN FACC, CHELLE FACP CCDS Ot I70.203 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 04/01/2018 BSIHNU ROLDAN FACC, ALI FACP CCDS Ot I71.4 ABDOMINAL AORTIC ANEURYSM, WITHOUT RUPTU 04/01/2018 BISHNU ROLDAN FACC, CHELLE FACP CCDS Ot 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 04/01/2018 BISHNU ROLDAN FACC, CHELLE FACP CCDS Ot J44.9 CHRONIC OBSTRUCTIVE PULMONARY DISEASE, U 04/01/2018 BISHNU ROLDAN FACC, CHELLE FACP CCDS Ot Z79.01 GROUND INSTRUCTOR BASIC (CURRENT) USE OF ANTICOAGULANT 04/01/2018 BISHNU ROLDAN FACC ALI FACP CCDS Ot Z79.02 PRISON (CURRENT) USE OF ANTITHROMBOTI 04/01/2018 CHELLE GOETZ MD, FACC FACP CCDS Ot Z79.82 GROUND INSTRUCTOR BASIC (CURRENT) USE OF ASPIRIN 04/01/2018 BISHNU ROLDAN FACC, ALI FACP CCDS Ot Z79.899 OTHER GROUND INSTRUCTOR BASIC (CURRENT) DRUG THERAPY 04/01/2018 BISHNU ROLDAN FACC, ALI FACP CCDS Ot Z87.891 PERSONAL HISTORY OF NICOTINE DEPENDENCE 04/01/2018 BISHNU ROLDAN FACC ALI FACP CCDS Ot 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 BYPASS GRAFT 04/02/2018 MARCIA LUI MD Ot 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 04/02/2018 MARCIA LUI MD Ot Z01.810 ENCOUNTER FOR PREPROCEDURAL CARDIOVASCUL 04/02/2018 MARCIA LUI MD Ot Z01.811 ENCOUNTER FOR PREPROCEDURAL RESPIRATORY 04/09/2018 MARCIA LUI MD Ot 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 04/09/2018 MARCIA LUI MD Ot Z01.810 ENCOUNTER FOR PREPROCEDURAL CARDIOVASCUL 04/09/2018 MARCIA LUI MD Ot Z01.811 ENCOUNTER FOR PREPROCEDURAL RESPIRATORY 04/11/2018 RAFIQ CAMPOVERDEP Ot I70.208 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 04/11/2018 RAFIQ CAMPOVERDE LIME SLAKER Ot I70.8 ATHEROSCLEROSIS OF OTHER ARTERIES 04/11/2018 RAFIQ CAMPOVERDEP Ot I71.4 ABDOMINAL AORTIC ANEURYSM, WITHOUT RUPTU 04/11/2018 RAFIQ CAMPOVERDE LIME SLAKER Ot 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 04/11/2018 RAFIQ CAMPOVERDE LIME SLAKER Ot K43.9 VENTRAL HERNIA WITHOUT OBSTRUCTION OR GA 04/11/2018 RAFIQ CAMPOVERDE LIME SLAKER Ot N28.89 OTHER SPECIFIED DISORDERS OF KIDNEY AND Procedures Code [place] [address] INDIV PSYTX 45/50 MIN 10/22/2012 69876 ROUTINE VENIPUNCTURE 10/24/2012 01042 BMP 10/24/2012 60651 MAGNESIUM 10/24/2012 [id number] GFR CALC (RESULT ONLY) 10/24/2012 2000F BLOOD PRESSURE CHECK 11/14/2012 49846 ROUTINE VENIPUNCTURE 01/15/2013 27892 BMP 01/15/2013 [id number] GFR CALC (RESULT ONLY) 01/15/2013 57468 LIPID PANEL 01/15/2013 17275 ROUTINE VENIPUNCTURE 05/06/2013 30395 A1C (IN-HOUSE) 05/06/2013 89935 CMP 05/06/2013 60515 MAGNESIUM 05/06/2013 [id number] GFR CALC (RESULT ONLY) 05/06/2013 04128 CPK 05/06/2013 47299 PSYTX PT&/FAMILY 45 MINUTES 05/14/2013 55596 OXIMETRY 07/01/2013 J7613 ALBUTEROL UNIT DOSE FORM INHALED 07/01/2013 J2930 SOLUMEDROL INJ 07/02/2013 28665 THERAPUTIC INJ SQ/IM 07/02/2013 39873 OXIMETRY 07/02/2013 2000F BLOOD PRESSURE CHECK 07/02/2013 G0008 FLU ADMINISTRATION ( MEDICARE ONLY) 08/06/2013 26242 OXIMETRY 08/13/2013 48018 ROUTINE VENIPUNCTURE 08/31/2013 28419 GLUCOSE 08/31/2013 22633 LIPID PANEL 08/31/2013 01943 A1C (IN-HOUSE) 09/08/2013 85388 XRAY CHEST 2 VIEW 11/12/2013 12545 MEASURE BLOOD OXYGEN LEVEL 11/12/2013 18476 THERAPUTIC INJ SQ/IM 12/11/2013 J2930 SOLUMEDROL INJ 12/11/2013 76459 A1C (IN-HOUSE) 12/11/2013 77166 ROUTINE VENIPUNCTURE 12/15/2013 92312 EKG, TRACING (IN-HOUSE) 12/15/2013 72994 XRAY CHEST 2 VIEW 12/15/2013 05475 ECHO 2D 12/15/2013 51135 OXIMETRY 12/15/2013 24717 CBC 12/15/2013 3784722 GFR CALC (RESULT ONLY) 12/15/2013 33239 CMP 12/15/2013 56719 MAGNESIUM 12/15/2013 07066 BNP 12/16/2013 81218 ROUTINE VENIPUNCTURE 01/13/2014 73332 OXIMETRY 01/13/2014 8293059 GFR CALC (RESULT ONLY) 01/14/2014 12639 CMP 01/14/2014 76496 MAGNESIUM 01/14/2014 11549 OXIMETRY 01/28/2014 93054 ROUTINE VENIPUNCTURE 03/24/2014 07182 LIPID PANEL 03/24/2014 62756 ROUTINE VENIPUNCTURE 07/02/2014 3223016 GFR CALC (RESULT ONLY) 07/02/2014 28830 CMP 07/02/2014 11942 LIPID PANEL 07/02/2014 61017 [employer] 08/17/2014 59936 US SOFT TISSUE (SPECIFY LOCATION) 09/15/2014 CARDIOLOG CHELLE GOETZ 09/15/2014 G0008 FLU ADMINISTRATION ( MEDICARE ONLY) 09/15/2014 PULMONARY WILL CASPER 09/15/2014 03613 US ABDOMINAL ULTRASOUND, COMPLETE 11/26/2014 95367 LEFT HEART CATH 01/25/2015 22026 US CAROTID DOPPLER 01/25/2015 66178 OXIMETRY 01/25/[address] ANGIO, EXTREMITY, LOWER 02/08/2015 Results Test [...] 11/27/17 06:36 Blood monocytes/100 leukocytes 2 % NR Manual blood segmented neutrophils/100 leukocytes 75 % [...] INFLUENZA A AND B ANTIGENS BY IA [facility] Complete blood count (CBC) with automated white [...] culture - 12/14/17 20:50 Bacterial urine culture [id number] NRG COLONY COUNT <10,000 NRG MRSA AGAR [...] culture - 02/16/18 09:30 Bacterial urine culture [id number] NRG COLONY COUNT 10,000/ML - 100,000/ML NRG [...] susceptibility test by minimum inhibitory concentration [address] [facility] Bacterial susceptibility panel - 02/16/18 09:30 Oxacillin [...] test by minimum inhibitory concentration R NRG Automated blood complete blood count (hemogram) panel - 04/01/18 08:36 Blood leukocytes automated count (number/volume) 9.1 10*3/uL 4.3-11.0 Blood erythrocytes automated count (number/volume) 4.36 10*6/uL 4.35-5.85 Venous blood hemoglobin measurement (mass/volume) 13.0 g/dL 11.5-16.0 Blood hematocrit (volume fraction) 40 % 35-52 Automated erythrocyte mean corpuscular volume 91 [foz_us] 80-99 Automated erythrocyte mean corpuscular hemoglobin (mass per erythrocyte) 30 pg 25-34 Automated erythrocyte mean corpuscular hemoglobin concentration measurement ( mass/volume) 33 g/dL 32-36 Automated erythrocyte distribution width ratio 16.1 % 10.0-14.5 Automated blood platelet count (count/volume) 259 10*3/uL 130-400 Automated blood platelet mean volume measurement 10.0 [foz_us] 7.4-10.4 PT panel in platelet poor plasma by coagulation assay - 04/01/18 08:36 Prothrombin time (PT) in platelet poor plasma by coagulation assay 14.5 s 12.2-14.7 INR in platelet poor plasma or blood by coagulation assay 1.1 0.8-1.4 Activated partial thromboplastin time (aPTT) in platelet poor plasma bycoagulation assay - 04/01/18 08:36 Activated partial thromboplastin time (aPTT) in platelet poor plasma bycoagulation assay 33 s 24-35 Comprehensive metabolic panel - 04/01/18 08:36 Serum or plasma sodium measurement (moles/volume) 141 mmol/L 135-145 Serum or plasma potassium measurement (moles/volume) 4.1 mmol/L 3.6-5.0 Serum or plasma chloride measurement (moles/volume) 105 mmol/L 98-107 Carbon dioxide 25 mmol/L 21-32 Serum or plasma anion gap determination (moles/volume) 11 mmol/L 5-14 Serum or plasma urea nitrogen measurement (mass/volume) 22 mg/dL 7-18 Serum or plasma creatinine measurement (mass/volume) 0.81 mg/dL 0.60-1.30 Serum or plasma urea nitrogen/creatinine mass ratio 27 NRG Serum or plasma creatinine measurement with calculation of estimated glomerular filtration rate > NRG Serum or plasma glucose measurement (mass/volume) 101 mg/dL 70-105 Serum or plasma calcium measurement (mass/volume) 9.7 mg/dL 8.5-10.1 Serum or plasma total bilirubin measurement (mass/volume) 0.5 mg/dL 0.1-1.0 Serum or plasma alkaline phosphatase measurement (enzymatic activity/volume) 71 U/L 40-136 Serum or plasma aspartate aminotransferase measurement (enzymatic activity/ volume) 17 U/L 5-34 Serum or plasma alanine aminotransferase measurement (enzymatic activity/volume ) 23 U/L 0-55 Serum or plasma protein measurement (mass/volume) 7.6 g/dL 6.4-8.2 Serum or plasma albumin measurement (mass/volume) 4.3 g/dL 3.2-4.5 Lipid 1996 panel - 04/01/18 08:36 Serum or plasma triglyceride measurement (mass/volume) 68 mg/dL <150 Serum or plasma cholesterol measurement (mass/volume) 173 mg/dL < 200 Serum or plasma cholesterol in HDL measurement (mass/volume) 68 mg/ dL 40-60 Cholesterol in LDL [mass/volume] in serum or plasma by direct assay 90 mg/dL 1-129 Serum or plasma cholesterol in VLDL measurement (mass/volume) 14 mg/ dL 5-40 Methicillin resistant Staphylococcus aureus (MRSA) screening culture - 08:36 Methicillin resistant Staphylococcus aureus (MRSA) screening culture NEG NRG Encounters ACCT No. Visit Date/Time Discharge Status Pt. Type Provider Facility Loc./Unit Complaint [id number] 03/18/2015 16:54:00 03/18/2015 23:59:59 CLS Outpatient SHANIQUE VEGA MD [id number] 01/25/2015 09:06:00 01/25/2015 23:59:59 CLS Outpatient SHARIF JOHNSON MD [id number] 12/06/2014 05:51:00 12/06/2014 23:59:59 CLS Outpatient SHANIQUE VEGA MD [id number] 11/26/2014 15:23:00 11/26/2014 23:59:59 CLS Outpatient SHARIF JOHNSON MD [id number] 11/26/2014 15:23:00 11/26/2014 23:59:59 CLS Outpatient SHARIF JOHNSON MD [id number] 11/13/2014 15:20:00 11/13/2014 23:59:59 CLS Outpatient ILIR VILLALOBOS MIKE Dionne [id number] 10/27/2014 13:31:00 10/27/2014 23:59:59 CLS Outpatient MASSIEL VEGA [id number] 09/15/2014 16:03:00 09/15/2014 23:59:59 CLS Outpatient SHARIF JOHNSON MD [id number] 08/17/2014 15:49:00 08/17/2014 23:59:59 CLS Outpatient SHARIF JOHNSON MD [id number] 07/29/2014 10:54:00 07/29/2014 23:59:59 CLS Outpatient DESI BAIG APRN [id number] 07/02/2014 11:34:00 07/02/2014 23:59:59 CLS Outpatient SHARIF JOHNSON MD [id number] 06/18/2014 14:51:00 06/18/2014 23:59:59 CLS Outpatient SHARIF JOHNSON MD [id number] 06/02/2014 14:58:00 06/02/2014 23:59:59 CLS Outpatient DESI BAIG APRN [id number] 05/18/2014 14:07:00 05/18/2014 23:59:59 CLS Outpatient SHARIF JOHNSON MD [id number] 03/24/2014 15:01:00 03/24/2014 23:59:59 CLS Outpatient SHARIF JOHNSON MD [id number] 03/11/2014 13:43:00 03/11/2014 23:59:59 CLS Outpatient SHARIF JOHNSON MD [id number] 01/28/2014 14:29:00 01/28/2014 23:59:59 CLS Outpatient SHARIF JOHNSON MD [id number] 01/28/2014 14:29:00 01/28/2014 23:59:59 CLS Outpatient SHARIF JOHNSON MD [id number] 01/13/2014 15:39:00 01/13/2014 23:59:59 CLS Outpatient CAROLINE MENDOZA MD [id number] 01/13/2014 15:39:00 01/13/2014 23:59:59 CLS Outpatient CAROLINE MENDOZA MD [id number] 12/15/2013 15:34:00 12/15/2013 23:59:59 CLS Outpatient MIKE HAZEL DO [id number] 12/15/2013 15:34:00 12/15/2013 23:59:59 CLS Outpatient JACQUIE CABLE HOOKER, MAX Andre [id number] 12/11/2013 11:52:00 12/11/2013 23:59:59 CLS Outpatient JACQUIE CABLE HOOKER, MAX Andre [id number] 11/12/2013 16:30:00 11/12/2013 23:59:59 CLS Outpatient SHAHNAZ MARQUEZ APRN [id number] 11/09/2013 12:50:00 11/09/2013 23:59:59 CLS Outpatient TARI CABLE HOOKERAUDIE Menjivar [id number] 11/03/2013 09:32:00 11/03/2013 23:59:59 CLS Outpatient DESI BAIG APRN [id number] 10/20/2013 09:44:00 10/20/2013 23:59:59 CLS Outpatient DESI BAIG APRN [id number] 09/22/2013 14:05:00 09/22/2013 23:59:59 CLS Outpatient CAROLINE MENDOZA MD [id number] 09/08/2013 08:20:00 09/08/2013 23:59:59 CLS Outpatient CAROLINE MENDOZA MD [id number] 08/31/2013 08:05:00 08/31/2013 23:59:59 CLS Outpatient CAROLINE MENDOZA MD [id number] 08/07/2013 11:43:00 08/07/2013 23:59:59 CLS Outpatient MARIA DE JESUS BUTLER DO [id number] 01/22/2013 09:37:00 01/22/2013 23:59:59 CLS Outpatient MARIA DE JESUS BUTLER DO [id number] 01/15/2013 10:49:00 01/15/2013 23:59:59 CLS Outpatient CAROLINE MENDOZA MD [id number] 01/15/2013 10:49:00 01/15/2013 23:59:59 CLS Outpatient CAROLINE MENDOZA MD [id number] 12/23/2012 13:28:00 12/23/2012 23:59:59 CLS Outpatient MARIA DE JESUS BUTLER DO [id number] 11/24/2012 14:22:00 11/24/2012 23:59:59 CLS Outpatient MIKE HAZEL DO [id number] 11/14/2012 13:45:00 11/14/2012 23:59:59 CLS Outpatient HAZEL MIKE VILLALOBOS [id number] 10/24/2012 13:17:00 10/24/2012 23:59:59 CLS Outpatient SHANIQUE VEGA MD [id number] 10/24/2012 13:17:00 10/24/2012 23:59:59 CLS Outpatient [id number] 10/21/2012 10:34:00 10/21/2012 23:59:59 CLS Outpatient [id number] 09/11/2012 11:29:00 09/11/2012 23:59:59 CLS Outpatient MARIA DE JESUS BUTLER DO [id number] 07/27/2013 11:07:00 Document Registration [id number] 07/02/2013 08:45:00 Document Registration [id number] 07/01/2013 11:44:00 Document Registration [id number] 07/01/2013 11:44:00 Document Registration [id number] 06/05/2013 08:35:00 Document Registration [id number] 05/13/2013 09:45:00 Document Registration [id number] 05/06/2013 10:52:00 Document Registration [id number] 04/21/2013 11:00:00 Document Registration [id number] 03/13/2013 11:19:00 Document Registration [id number] 04/10/2018 13:32:00 04/10/2018 23:59:59 CLS Outpatient CAMPOVERDEBRYNIE Archana KC [facility] RAD ABDOMINAL AORTIC ANEURYSM, ILIAC ANEURYSYM [id number] 04/01/2018 07:46:00 04/01/2018 14:20:00 DIS Outpatient CHELLE GOETZ MD, FACC, FACP CCDS [facility] CATH PERIPHERAL ANGIOGRAPHY [id number] 03/12/2018 09:18:00 03/12/2018 23:59:59 CLS Outpatient MARCIA LUI MD [facility] CARD PREOP Z01.810 [id number] 03/05/2018 08:57:00 03/05/2018 23:59:59 CLS Outpatient CHELLE GOETZ MD, FACC, FACP CCDS [facility] CARD SOB [id number] 02/16/2018 10:58:00 02/16/2018 23:59:59 CLS Outpatient SHANIQUE VEGA MD [facility] CVS UTI [id number] 02/10/2018 10:54:00 02/10/2018 23:59:59 CLS Outpatient MARCIA LUI MD [facility] CARD CAROTID ARTERY STENOSIS, BILATERAL [id number] 12/23/2017 10:16:00 12/23/2017 23:59:59 CLS Outpatient MARCIA LUI MD [facility] CARD Z01.810,Z01.818 [id number] 2017 20:15:00 2017 22:55:00 DIS Emergency JESSICA JENKINS MD [facility] ER WENT UNRESPONSIVE,HIT HEAD , VCV [id number] 12/02/2017 07:48:00 12/02/2017 23:59:59 CLS Outpatient SATHISH ABAD [facility] RAD I65.23 [id number] 11/26/2017 21:20:00 11/27/2017 11:41:00 DIS Inpatient PRUDENCE SHAW MD [facility] 4TH UROSEPSIS,ABDOMINAL PAIN, FEVER [id number] 11/26/2017 07:18:00 11/26/2017 15:18:00 DIS Outpatient LUL NORWOOD MD [facility] SDC INCONTINENCE,RETENTION [id number] 11/25/2017 13:20:00 11/25/2017 23:59:59 CLS Outpatient SATHISH ABAD [facility] RAD CAROTID ARTERY STENOSIS [id number] 11/19/2017 05:29:00 11/19/2017 14:39:00 DIS Outpatient LUL NORWOOD MD [facility] PREOP INCONTINENCE,RETENTION [id number] 11/04/2017 05:57:00 11/04/2017 23:59:59 CLS Outpatient LUL NORWOOD MD [facility] PREOP INCONTINENCE,RETENTION [id number] 10/15/2017 07:43:00 10/15/2017 23:59:59 CLS Outpatient BISHNU ROLDAN FACC, ALI FACP CCDS [facility] RAD AAA [id number] 10/15/2017 07:43:00 10/15/2017 14:13:00 DIS Outpatient BISHNU ROLDAN FACC, ALI FACP CCDS [facility] CATH AAA,CAD,PAF, HTN [id number] 10/08/2017 07:01:00 10/08/2017 23:59:59 CLS Outpatient BISHNU ROLDAN FACC, ALI FACP CCDS [facility] CARD R06.02 SOB [id number] 10/04/2017 13:16:00 10/04/2017 23:59:59 CLS Outpatient BISHNU ROLDAN FACC, ALI FACP CCDS [facility] CARD SOB [id number] 10/04/2017 07:15:00 10/04/2017 23:59:59 CLS Preadmit BISHNU ROLDAN FACC, ALI FACP CCDS [facility] CARD SOB [id number] 02/12/2017 05:56:00 02/12/2017 11:40:00 DIS Outpatient LUL NORWOOD MD [facility] OAB [id number] 02/06/2017 09:39:00 02/06/2017 13:57:00 DIS Outpatient LUL NORWOOD MD [facility] PREOP OAB [id number] 11/27/2016 06:58:00 11/28/2016 16:00:00 DIS Outpatient LUL NORWOOD MD [facility] ISD [id number] 11/22/2016 10:00:00 11/22/2016 13:00:00 DIS Outpatient LUL NORWOOD MD [facility] PREOP ISD [id number] 05/14/2016 15:45:00 05/16/2016 13:05:00 DIS Inpatient PRUDENCE SHAW MD Via [address] [id number] 12/07/2015 07:47:00 12/07/2015 09:30:00 DIS Emergency CHARLES ROLDAN, TARA Arellano [facility] ER [id number] 03/10/2015 11:28:00 03/15/2015 12:00:00 DIS Inpatient ELIZABETH ROLDAN, SHARIF Menjivar [facility] [id number] 02/27/2015 21:37:00 02/28/2015 13:30:00 DIS Inpatient GARY ROLDAN, SHANIQUE Funk [facility] SURGICAL ALTERED MENTAL STATUS UTI [id number] 02/25/2015 03:44:00 02/25/2015 06:24:00 DIS Emergency EUNICE ROLDAN, JUAREZ Powell [facility] ER [id number] 02/03/2015 17:50:00 02/24/2015 16:55:00 DIS Inpatient SASHA ROLDAN, MYRNA Mc [facility] IRF [id number] 12/28/2014 09:10:00 12/28/2014 17:30:00 DIS Outpatient BISHNU ROLDAN FACC, CHELLE WALTERS CCDS [facility] [id number] 12/24/2014 13:00:00 12/24/2014 23:59:59 CLS Outpatient SHANIQUE VEGA MD [facility] [id number] 12/20/2014 20:00:00 12/20/2014 23:59:59 CLS Preadmit WILL CASPER DO [facility] SLEEP ARRHYTHMIAS,MOOD DISORDER,HYPOXIA [id number] 12/03/2014 09:58:00 12/03/2014 10:47:00 DIS Outpatient DIANNA MACHADO MD [facility] CARD [id number] 12/02/2014 09:45:00 12/02/2014 23:59:59 CLS Preadmit SHARIF JOHNSON MD [facility] RAD NAUSEA,UNABLE TO TOLERATE SOLID FOODS [id number] 11/22/2014 14:15:00 11/22/2014 23:59:59 CLS Preadmit WILL CASPER DO Via [facility] RT HYPOXIA DYPSNEA [id number] 11/11/2014 11:54:00 11/11/2014 14:00:00 DIS Emergency EMANUEL WILKINSON MD Via [facility] [id number] 11/04/2014 17:27:00 11/05/2014 11:35:00 DIS Inpatient SHANIQUE VEGA MD Via [address] [id number] 11/01/2014 22:05:00 11/02/2014 16:45:00 DIS Inpatient MIKE HAZEL DO Via [address] [id number] 09/25/2014 11:09:00 09/25/2014 23:59:59 CLS Outpatient [id number] 08/23/2014 12:50:00 08/23/2014 23:59:59 CLS Outpatient DIANNA MACHADO MD [facility] CARD [id number] 08/02/2014 10:32:00 08/02/2014 23:59:59 CLS Outpatient ANDRE HERNANDEZ DO [facility] RAD [id number] 07/23/2014 08:50:00 07/23/2014 23:59:59 CLS Outpatient DIANNA MACHADO MD [facility] CARD [id number] 06/28/2014 12:46:00 06/28/2014 14:24:00 DIS Outpatient DIANNA MACHADO MD [facility] CARD [id number] 06/07/2014 12:24:00 06/07/2014 14:09:00 DIS Emergency RUFINA PEREZ DO [facility] ER [id number] 05/24/2014 12:58:00 05/24/2014 13:45:00 DIS Outpatient DIANNA MACHADO MD [facility] CARD [id number] 12/22/2013 12:42:00 12/22/2013 23:59:59 CLS Outpatient MAX DHILLON [facility] CARD [id number] 11/12/2013 18:13:00 11/14/2013 14:30:00 DIS Inpatient ELIZABETH ROLDAN, SHARIF Menjivar Via [address] COPD EXACERBATION [id number] 07/02/2013 11:37:00 07/09/2013 12:50:00 DIS Inpatient GARY ROLDAN, SHANIQUE Funk Via [address] [id number] 07/02/2013 11:06:00 07/02/2013 23:59:59 CLS Emergency [id number] 06/11/2013 09:24:00 06/11/2013 23:59:59 CLS Outpatient CAROLINE MENDOZA MD Via [facility] [id number] 02/17/2015 16:12:00 Document Registration [id number] 02/17/2015 16:12:00 Document Registration [id number] 02/17/2015 16:12:00 Document Registration [id number] 02/17/2015 16:12:00 Document Registration [id number] 09/30/2012 14:20:00 Document Registration [id number] 07/01/2012 14:08:00 Document Registration [id number] 03/11/2012 14:34:00 Document Registration [id number] 10/17/2011 15:30:00 Document Registration [id number] 10/09/2011 15:24:00 Document Registration [id number] 10/06/2011 09:02:00 Document Registration [id number] 07/30/2011 17:25:00 Document Registration [id number] 07/17/2011 16:12:00 Document Registration [id number] 09/10/2017 10:20:00 09/10/2017 23:59:59 [facility] Outpatient SHANIQUE VEGA MD [id number] 03/10/2015 09:27:29 ACT Document Registration
[2018-05-05 05:44] LABS: BILIRUBIN,URINE NEGATIVE (NEGATIVE); CLARITY,URINE CLEAR; COLOR,URINE YELLOW; GLUCOSE, URINE (UA) NEGATIVE (NEGATIVE); KETONES,URINE NEGATIVE (NEGATIVE); LEUKOCYTE ESTERASE ,URINE 3+ (NEGATIVE); NITRITE,URINE POSITIVE (NEGATIVE); PH,URINE 6.5 (5-9); PROTEIN,URINE 2+ (NEGATIVE); UROBILINOGEN,URINE NORMAL (NORMAL)
[2018-05-05 05:48] LABS: BASOPHILS % (AUTO) 0 % (0-10); EOSINOPHILS # (AUTO) 0.2 10^3/uL (0.0-0.3); EOSINOPHILS % (AUTO) 2 % (0-10); HEMATOCRIT 36 % (35-52); HEMOGLOBIN 12.2 G/DL (11.5-16.0); LYMPHOCYTES # (AUTO) 2.4 X 10^3 (1.0-4.0); LYMPHOCYTES % (AUTO) 23 % (12-44); MEAN CORPUSCULAR HEMOGLOBIN 31 PG (25-34); MEAN CORPUSCULAR HGB CONC 34 G/DL (32-36); MEAN CORPUSCULAR VOLUME 91 FL (80-99); MEAN PLATELET VOLUME 9.8 FL (7.4-10.4); MONOCYTES # (AUTO) 1.1 X 10^3 (0.0-1.0); MONOCYTES % (AUTO) 11 % (0-12); NEUTROPHILS # (AUTO) 6.9 X 10^3 (1.8-7.8); NEUTROPHILS % (AUTO) 64 % (42-75); PLATELET COUNT 242 10^3/uL (130-400); RED BLOOD COUNT 3.95 10^6/uL (4.35-5.85); RED CELL DISTRIBUTION WIDTH 15.4 % (10.0-14.5); WHITE BLOOD COUNT 10.8 10^3/uL (4.3-11.0)
[2018-05-05 05:53] LABS: BACTERIA,URINE MODERATE /HPF; WBC,URINE 50-100 /HPF
[2018-05-05] MEDS ORDERED: cefTRIAXone INJECTION 1,000 MG in NS (IVPB) 50 ML IV ONE (06:00)
[2018-05-05 06:04] LABS: ALANINE AMINOTRANSFERASE 26 U/L (0-55); ALBUMIN 3.9 GM/DL (3.2-4.5); ALKALINE PHOSPHATASE 66 U/L (40-136); BILIRUBIN,TOTAL 0.4 MG/DL (0.1-1.0); BUN/CREATININE RATIO 35; CALCIUM 9.5 MG/DL (8.5-10.1); CARBON DIOXIDE 23 MMOL/L (21-32); CHLORIDE 106 MMOL/L (98-107); CREATININE SERUM 0.75 MG/DL (0.60-1.30); GFR ESTIMATED > 60; GLUCOSE 107 MG/DL (70-105); POTASSIUM 4.8 MMOL/L (3.6-5.0); SODIUM 141 MMOL/L (135-145); TOTAL PROTEIN 7.1 GM/DL (6.4-8.2)
--- NOTE | 2018-05-05 07:23 | Diagnostic Imaging Report ---
PROCEDURE: CT lumbar spine without contrast. TECHNIQUE: Multiple contiguous axial images were obtained through the lumbar spine without the use of intravenous contrast. Sagittal and coronal reformations were then performed. DATE: 05/05/2018. INDICATION: 82-year-old female, low back pain. COMPARISON: CT lumbar spine 06/11/2013. FINDINGS: There is grade 1 anterolisthesis of L5 on S1 which measures 4 mm. There is minimal grade 1 anterolisthesis of L3 on L4. There is no identified pars interarticularis defect. There is a concavity of the superior endplate of L3 with roughly 10% vertebral body height loss. There is no well visualized definite fracture line. There is no retropulsed fracture fragment. This is an interval change since comparison CT lumbar spine of 06/11/2013. This is also new since 11/26/2017 CT abdomen and pelvis. There is severe disc height loss at L4-L5. There is moderate to severe disc height loss at L5-S1. There is moderate disc height loss at L3-L4. There are degenerative changes of the lower thoracic spine. CT is limited for assessment of disc pathology as well as additional non-bony causes of foraminal and spinal stenosis. There is a large diffuse disc bulge noted at L1-L2. There does appear to be likely severe spinal stenosis at this level. There is also a large diffuse disc bulge at L5-S1 with suspected mild to moderate spinal stenosis at this level. There are advanced facet degenerative changes bilaterally at L3-L4, L4-L5, and L5-S1. There are very mild bilateral sacroiliac degenerative changes. There is dependent atelectasis. There are atherosclerotic calcifications. There is aneurysmal enlargement of the infrarenal abdominal aorta measuring up to at least 3.8 cm in diameter. The right common iliac artery measures up to approximately 1.9 cm in diameter. IMPRESSION: 1. Compression fracture of the L3 vertebral body with roughly 10% vertebral body height loss and no retropulsed fracture fragment. This is new since 11/26/2017 although of uncertain exact age. 2. Multilevel advanced disc and facet degenerative changes of the lumbar spine as described above. 3. Infrarenal abdominal aortic aneurysm measuring up to at least 3.8 cm in diameter. Dictated by: Dictated on workstation # [id number]
--- NOTE | 2018-05-05 07:35 | Diagnostic Imaging Report ---
EXAMINATION: Pelvis, single view. COMPARISON: 12/07/2015. HISTORY: 82-year-old female, back pain radiating down to the hips. FINDINGS: There is a right hip prosthesis. The femoral stem is incompletely visualized. There is severe osteoarthritis of the left hip with [id number] articulation and prominent osteophytes. There is no abnormal widening of the pubic symphysis or sacroiliac joints. The bones appear demineralized. There is no identified acute fracture. There are advanced multilevel disc and facet degenerative changes of the lumbar spine. There is a mild lumbar dextro curvature. There is limited evaluation of the sacrum relating to overlying bowel gas. There are limitations for evaluation of the lumbar spine given quantum mottle artifact. IMPRESSION: 1. Bone demineralization without identified acute fracture. 2. Severe osteoarthritis of the left hip. 3. Intact visualized portions of a right total hip prosthesis. 4. Severe disc and facet degenerative changes of the lumbar spine with lumbar dextroscoliosis. Dictated by: Dictated on workstation # [id number]
[2018-05-05] MEDS ORDERED: oxyCODONE/APAP 5/325MG (PERCOCET 5) TABLET PO ONE (08:00)
[2018-05-05] MEDS ORDERED: OXYC-197 PO (09:42)
[2018-05-05] MEDS ORDERED: CEPH-507 PO (09:42)
[2018-05-05 09:50] VITALS: BP 103/77
== END 2018-05-05 10:27 | disposition home or self-care (01) ==
LOC: EDUNIT# 05:11 → ER 05:12
DX: S32.030A Wedge compression fracture of third lumbar vertebra, initial encounter for closed fracture (principal); I71.4 Abdominal aortic aneurysm, without rupture; N39.0 Urinary tract infection, site not specified; I25.10 Atherosclerotic heart disease of native coronary artery without angina pectoris; E78.00 Pure hypercholesterolemia, unspecified; E11.9 Type 2 diabetes mellitus without complications; I10 Essential (primary) hypertension; F41.9 Anxiety disorder, unspecified; F32.9 Major depressive disorder, single episode, unspecified; Z90.49 Acquired absence of other specified parts of digestive tract; Z90.89 Acquired absence of other organs; Z95.1 Presence of aortocoronary bypass graft; Z90.710 Acquired absence of both cervix and uterus; Z87.891 Personal history of nicotine dependence; Z79.84 Long term (current) use of oral hypoglycemic drugs; Z79.82 Long term (current) use of aspirin; Z88.2 Allergy status to sulfonamides; Z88.6 Allergy status to analgesic agent; Z98.890 Other specified postprocedural states; X50.0XXA Overexertion from strenuous movement or load, initial encounter
CPT/HCPCS: 36415; 72131; 72170; 80053; 81000; 83605; 85025; 87040; 87088; 96361; 96365; 96375; 96376

== ENCOUNTER 2018-09-04 11:14 | Emergency (ER) | payer MEDICARE, MEDICAID ==
[~2018-09-04] VITALS: Ht 157.5 cm; Wt 81.6 kg
[~2018-09-04 11:14] MED LIST changes: +CEPH-507 PO; +METF-397 PO; -METF500T5 PO; +OXYC1TAB87 PO; +TRAZ-189 PO; -TRAZ-28 PO
--- OUTSIDE RECORDS SUMMARY | 2018-09-04 11:21 | XMS REPORT | Clinical Summary ---
Author Author [facility] Organization [facility] Address Unknown Phone Unavailable Care Team Providers Care Erp Project Manager Name Role Phone Itz Chacon MD PCP Source Comments Some departments are not documenting in the electronic medical record. If you do not see the information that you expected, contact Release of Information in the Health Information Management department at [phone] for further assistance in locating additional records.[facility] Allergies Active Allergy Reactions Severity Noted [...] Overview: Added automatically from request for surgery [id number] Mixed stress and urge urinary incontinence 03/20/2017 Overview: Longstanding hx of JOE (UUI>MAXWELL), OAB, ISD, urinary retention who is s/p PVS (Solyx) by Dr. Andrews on 11/27/16; Macroplastique injection 02/12/17. Trailed Liz Amos without success. 03/20/17 - PATHOLOGY SUPERVISOR eval with Dr. Carlisle. Still with JOE [...] Taken Blood Pressure 178/94 09/27/2017 10:47 AM CEO Pulse 77 09/27/2017 10:47 AM CEO Temperature 36.6 C (97.9 F) 09/27/2017 10:47 AM CEO Respiratory Rate - - Oxygen Saturation 96% 09/27/2017 10:47 AM CEO Inhaled Oxygen - - Concentration Weight 77.2 kg (170 lb 3.2 oz) 09/27/2017 10:47 AM CEO Height 157.5 cm (5' 2") 09/27/2017 10:47 AM CEO Body Mass Index 31.13 09/27/2017 10:47 AM CEO Plan of Treatment Health Maintenance Due Date Last Done Comments PHYSICAL (COMPREHENSIVE) 1942 EXAM PERTUSSIS VACCINE 1948 TETANUS VACCINE 1954 SHINGLES RECOMBINANT 1987 VACCINE (1 of 2) OSTEOPOROSIS SCREENING 2002 PNEUMONIA (PCV13/PPSV23) 2002 VACCINES (1 of 2 - PCV13) INFLUENZA VACCINE 06/18/2018 08/06/2013 Results Not on filefrom Last 3 Months
--- OUTSIDE RECORDS SUMMARY | 2018-09-04 11:23 | XMS REPORT ---
Author Author SHAHNAZ MARQUEZ [facility] Address [address] [place] [address] Care Team Providers Care Drum Maker Name Role Phone SHAHNAZ MARQUEZ Unavailable PROBLEMS Type Condition ICD9-CM Code EKN23-LV Code Onset Dates Condition Status SNOMED Code Problem Reactive depression F32.9 Active 73413458 Problem Anxiety F41.9 Active 22182113 Problem Pharyngeal dysphagia R13.13 Active 14600063478362 Problem Suprapubic catheter Z93.59 Active 819524255 Problem Encounter for suprapubic catheter care Z43.5 Active 924259141 Problem Insomnia G47.00 Active 704612938 Problem Peripheral vascular disease I73.9 Active 032396907 Problem 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 Active 70844188 Problem Paroxysmal atrial fibrillation I48.0 Active 546591606 Problem Hypertension I10 Active 79603037 Problem Other chronic pain G89.29 Active 76686071 Problem Low back pain M54.5 Active 975941848 Problem Coronary artery disease I25.10 Active 97616751 Problem Type 2 diabetes mellitus without complication, without long-term current use of insulin E11.9 Active 047019071 Problem Hyperlipidemia E78.5 Active 95647984 Problem Ventral hernia without obstruction or gangrene K43.9 Active 658455640 ALLERGIES Substance Reaction Event Type Date Status Lyrica Unknown Drug Allergy Aug, Active Bactrim DS hives Drug Allergy Aug, Active Hydrochlorothiazide 50 Mg Tablet hypokalemia Non Drug Allergy Aug, Active Lisinopril 20 Mg Tablet cough Non Drug Allergy Aug, Active ENCOUNTERS Encounter Location Date Diagnosis [facility] [address] [facility] [id number] [place] [address] Aug, Via [facility] [address] [facility] [place] [address] Aug, Encounter for suprapubic catheter care Z43.5 [facility] [address] [facility] [place] [id number], [place] [address] 20 Jul, 2018 Via [facility] [address] [place] [id number] Jul, [facility] [address] [facility] [place] [id number], [place] [address] Jul, Other chronic pain G89.29 [facility] [address] [facility] [place] [id number], [place] [address] Jul, [place] [address] [facility] [place] [id number], [place] [address] Jul, Via [facility] [address] [place] [id number] Jun, 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 [place] [address], [place] [address] Jun, Other chronic pain G89.29 [place] [address] [id number], [place] [address] Jun, Via [facility] [address] [place] [id number] May, Anxiety F41.9 ; Type 2 diabetes mellitus without complication, without long-term current use of insulin E11.9 ; Hypertension I10 ; Low back pain M54.5 ; Paroxysmal atrial fibrillation I48.0 and 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 [place] [address] [id number], [place] [address] 34[address] May, Other chronic pain G89.29 Via [facility] [address] [place] [id number] May, Low back pain M54.5 [place] [address], [place] [address] 1568 May, [place] [address] [id number], [place] [address] 7807 Apr, Other chronic pain G89.29 [place] [address]65[address], [place] [address] Apr, [facility] [id number] [place] [address]6332- 1730 Apr, Via [facility] [address] [place] [id number] 19 Apr, 2018 Closed compression fracture of L3 lumbar vertebra with routine healing, subsequent encounter S32.030D Via [facility] [address] [place] [id number] 14 Apr, 2018 Low back pain M54.5 Via [facility] [address] [place] [id number] 12 Apr, [address] [facility] [id number] [place] [address] 81587- 8678 March, [facility] [id number] [place] [address] 75654- 7166 March, Other chronic pain G89.29 [facility] [id number] [place] [address] 25801- 9584 March, [facility] [id number] [place] [address] 71488- [address] March, [facility] [id number] [place] [address] 65817- 2191 Feb, [facility] [id number] [place] [address] 81691- 7647 Feb, Other chronic pain G89.29 Via [facility] [address] [place] [id number] Feb, Other chronic pain G89.[address] [facility] [id number] [place] [address] 25921- 7686 Feb, [facility] [id number] [place] [address] 39050- 7[address] Jan, [facility] [id number] [place] [address] 51471- 97[address] Jan, [facility] [address] [facility] [place] [id number][place] [address] [address] Jan, [facility] [address] [facility] [place] [id number][place] [address] [address] Jan, 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 [address] [facility] [place] [id number], [place] [address] 39[address] Nov, [facility] [id number] [address] Nov, Anxiety F41.9 Via [facility] [address] [place] [id number] Nov, Status post surgery Z98.890 ; Confused R41.0 ; Anxiety F41.9 and Other chronic pain G89.29 [facility] [address] [id number] [address] Nov, Other chronic pain G89.29 [facility] [address] [facility] [place] [id number][place] [address] Oct, [facility] [id number][place] [address] Oct, Other chronic pain G89.29 [facility] [address] [facility] [place] [id number], [place] [address] 4478 Oct, Anxiety F41.9 [facility] [id number] [place] [address] [id number] Sep, Other chronic pain G89.29 [facility] [id number] [place] [address] [id number] Sep, Via [facility] [address] [place] [id number] Aug, Dysuria R30.[address] [facility] [address] [place] [address] 18132- 2846 Aug, [facility] [id number] [place] [address] [id number] Aug, Other chronic pain G89.29 [facility] [id number] [place] [address] 87548028- 7081 Jul, Other chronic pain G89.29 [facility] [id number] [place] [address] [id number] Jun, [facility] [id number] [place] [address] [id number] Jun, Other chronic pain G89.29 [facility] [address] [place] [address] 34772555- 0894 Jun, [facility] [address] [place] [address] 11238512- 4521 May, Other chronic pain G89.29 [facility] [id number] [place] [address] 87210- 2999 Apr, Other chronic pain G89.29 Via [facility] [employer] [facility] [address] [place] [id number] Apr, Reactive depression F32.9 and Pharyngeal dysphagia R13.13 [facility] [address] [address]91 Apr, Urinary tract infection without hematuria, site unspecified N39.0 [facility] [id number] [place] [address] 71768- 5302 March, Other chronic pain G89.29 [facility] [id number] [place] [address] 41046- 4987 Feb, Other chronic pain G89.29 [facility] [id number] [place] [address] 91819- 3294 Feb, [facility] [id number] [place] [address] [id number] Feb, Via [facility] [address] [place] [address] Feb, Dysuria R30.0 and Ventral hernia without obstruction or gangrene K43.9 [place] [id number] [place] [address] 67347- 4678 Jan, Other chronic pain G89.29 [facility] [id number] [place] [address] [id number] Dec, Other chronic pain G89.29 [facility] [id number] [place] [address] 57155- 9593 Nov, Other chronic pain G89.29 [facility] [address] [place] [address] Nov, Lymphadenitis I88.9 [facility] [address] [place] [address] 22301- 6338 Nov, Other chronic pain G89.29 [facility] [address] [place] [address] 02234- 4463 Nov, [facility] [address] [id number] [place] [address] [id number] Nov, Other chronic pain G89.29 [facility] [address] [place] [address] Oct, Low back pain M54.5 ; Hypertension I10 and Type 2 diabetes mellitus without complication, without long-term current use of insulin E11.9 [facility] [address] [id number] [place] [address] 44214- 58[address] Oct, [facility] [address] [facility] [place] [id number], [place] [address]- [address] Oct, [facility] [address] [facility] [place] [id number], [place] [address]- [address] Oct, [facility] [address] [facility] [place] [id number], [place] [address]- [address] Oct, [facility] [address] [facility] [place] [id number] [place] [address] 23142- 8[address] Sep, [facility] [address] [facility] [place] [id number], [place] [address]- 6566 Sep, [facility] [address] [place] [address] 16736- 9932 Aug, Other chronic pain G89.29 [facility] [address] [place] [address] 33434- 0678 Jul, [facility] [address]65[address], [place] [address]- 4428 Jul, [facility] [address] [place] [address] 57071- 7[address] Jul, [facility] [address], [place] [address]- 1195 Jun, [facility] [address]65100[place], [place] [address]- 0926 Jun, Via [facility] [address] [place] [id number] Jun, Low back pain M54.5 ; Other chronic pain G89.29 and Coronary artery disease I25.10 [facility] [address] [facility] [place] [id number], [place] [address]- 2514 Jun, [facility] [address]65[address], [place] [address]- 3317 May, [facility] [address]65100[place], [place] [address]- [address] 15 May, 2016 [facility] [address], [place] [address]- 4334 May, Other chronic pain G89.29 [facility] [address] [facility] [place] [id number], [place] [address]- 6746 [address], [address] [facility] [address]65100[place], [place] [address]- 9847 28 Apr, 2016 [facility] [address], [place] [address]- 7403 17 Apr, 2016 Acute cystitis without hematuria N30.00 [facility] [address] [place] [address] 55102- 6498 16 Apr, 2016 Acute cystitis without hematuria N30.00 ; Coronary artery disease I25.10 ; Low back pain M54.5 and Other chronic pain G89.29 [facility] [address], [place] [address]- 9389 Apr, Other chronic pain G89.29 [facility] [address], [place] [address]- 7489 March, Other chronic pain G89.29 [facility] [address], [place] [address]- 4495 18 Feb, 2016 [facility] [address], [place] [address]- 5509 15 Feb, [address] [facility] [address] [id number], [place] [address]- 4863 Feb, [facility] [address], [place] [address]- 3494 [address], [address] [facility] [address], [place] [address]- 8744 Jan, [facility] [address] [id number], [place] [address]- 1876 Jan, Other chronic pain G89.29 [facility] [address] [facility] [place] [id number], [place] [address] 2546 Jan, Hypertension I10 ; Coronary artery disease I25.[address] [facility] [address] [facility] [place] [id number], [place] [address] 2546 Jan, [facility] [address] [facility] [place] [id number] [place] [address] 48571 2546 Dec, Right hip pain M25.551 [facility] [address] [facility] [place] [id number] [place] [address] 36187 2546 Dec, [facility] [address] [facility] [place]] [id number] [place] [address] Dec, [facility] [id number] [place] [address] 57379 2546 Dec, [facility] [id number] [place] [address] 16098 2540 Dec, Other chronic pain G89.29 [facility] [id number] [place] [address] 10093 2546 Dec, [facility] [address], [place] [address] 2546 Nov, [facility] [address], [place] [address] 2540 Nov, Other chronic pain G89.29 [facility] [address] [id number], [place] [address] 2546 Nov, Right hip pain M25.551 and Coronary artery disease I25.10 [facility] [address], [place] [address] 2546 Nov, Other chronic pain G89.29 [facility] [address] [id number], [place] [address] 2546 Oct, [facility] [id number], [place] [address]- 4172 Oct, [facility] [id number] [place] [address] 15840- 1868 Sep, [facility] [address] [id number], [place] [address]- 8327 Sep, [facility] [id number] [place] [address] 78962- 2304 Aug, [facility] [id number] [place] [address] 72434- 4181 Aug, Hypertension I10 ; Coronary artery disease I25.[address] [facility] [id number] [place] [address] 66999- 4488 Jun, [facility] [id number] [place] [address] 32797- 3221 Jun, Essential hypertension, benign 401.1 ; Other chronic pain 338.29 and Chronic airway obstruction, not elsewhere classified 496 [facility] [address] [place] [address] 31924- 7712 Jun, [facility] [id number] [place] [address] 42933- 04[address] Jun, [facility] [address], [place] [address]- 1755 Jun, [facility] [address], [place] [address]- 7477 May, [facility] [address]65100[place], [place] [address]- 0951 May, [facility] [id number] [place] [address] 74430- 0[address] Apr, [facility] [address]100[place], [place] [address]- 1678 Apr, [facility] [address] [place] [address] 31341- 0119 Apr, [facility] [address] [id number] [place] [address]- 3176 March, [facility] [address] [id number] [place] [address]- 7260 March, [facility] [address] [facility] [place] [id number] [place] [address]- 9127 March, [facility] [address] [facility] [place] [id number] [place] [address]- 3443 March, [facility] [address] [facility] [place] [id number] [place] [address]- 5039 March, Sialadenitis 527.2 [facility] [address] [id number] [place] [address]- 2352 Feb, [facility] [address] [facility] [id number] [place] [address]- [address] Feb, [facility] [address] [facility] [id number] [place] [address]- 1105 Feb, [facility] [address] [facility]] [id number] [place] [address]- [address] Feb, [facility] [address] [facility] [id number] [place] [address]- 0324 Feb, [facility] [address] [facility] [id number] [place] [address]- 9289 Jan, [facility] [address] [id number], [place] [address]- 2870 Jan, [facility] [address] [id number] [place] [address]- 8496 Jan, [facility] [address] [facility] [id number] [place] [address]- 0473 Jan, [facility] [address] [facility] [id number] [place] [address]- 0210 Jan, [facility] [place] [facility] [address] [id number] [place] [address]- 7037 Jan, [facility] [place] [facility] [address] [id number] [place] [address]- 0905 Dec, 2014 [facility] [place] [facility] [address] [id number] [place] [address]- 3393 Dec, 2014 [facility] [place] [facility] [address] [id number] [place] [address]- 6998 Dec, 2014 [facility] [place] [facility] [address] [id number] [place] [address]- 9848 Dec, 2014 [facility] [place] [facility] [address] [id number] [place] [address]- 4499 Dec, 2014 [facility] [place] [facility] [address] [id number] [place] [address]- 9343 Dec, 2014 [facility] [place] [facility] [address] [id number] [place] [address]- 2580 Nov, [facility] [place] [facility] [address] [id number] [place] [address]- 4933 Nov, [facility] [place] [facility] [address] [id number] [place] [address]- 6144 Nov, [facility] [place] [facility] [address] [id number] [place] [address]- 7444 Nov, [facility] [place] [facility] [address] [id number] [place] [address]- 2556 Nov, [facility] [place] [facility] [address] [id number] [place] [address]- 0230 Nov, [facility] [place] [facility] [address] [id number] [place] [address]- 0649 Nov, [facility] [place] [facility] [address] [id number] [place] [address]- 5167 Nov, [facility] [place] [facility] [address] [id number] [place] [address]- 3032 Nov, [facility] [place] [facility] [address] [id number] [place] [address]- 7361 Nov, [facility] [place] [facility] [address] [id number] [place] 9108 Nov, [facility] [place] [facility] [address] [id number] [place] [address]- 1123 Nov, [facility] [place] [facility] [address] [id number] [place] [address]- 2377 Nov, [facility] [place] [facility] [address] [id number] [place] [address]- 8099 Nov, [facility] [place] [facility] [address] [id number] [place] [address]- 7643 Oct, [facility] [place] [facility] [address] [id number] [place] [address]- 2747 Oct, [facility] [place] [facility] [address] [id number] [place] [address]- 9897 Oct, [facility] [place] [facility] [address] [id number] [place] [address]- 5046 18 Oct, 2014 [facility] [place] [facility] [address] [id number] [place] [address]- 1867 18 Oct, 2014 [facility] [place] [facility] [address] [id number] [place] [address]- 2501 17 Oct, 2014 [facility] [place] [facility] [address] [id number] [place] [address]- 6951 17 Oct, 2014 [facility] [place] [facility] [address] [id number] [place] [address]- 5776 10 Oct, 2014 [facility] [place] [facility] [address] [id number] [place] [address] 10 Oct, 2014 [facility] [place] [facility] [address] [id number] [place] [address] Sep, [facility] [place] [facility] [address] [id number] [place] [address] Sep, [facility] [place] [facility] [address] [id number] [place] [address] Sep, [facility] [place] [facility] [address] [id number] [place] [address] Sep, [facility] [place] [facility] [address] [id number] [place] [address] Sep, [facility] [place] [facility] [address] [id number] [place] [address] Sep, [facility] [place] [facility] [address] [id number] [place] [address] Sep, [facility] [place] [facility] [address] [id number] [place] [address] Sep, [facility] [place] [facility] [address] [id number] [place] [address] Sep, [facility] [place] [facility] [address] [id number] [place] [address] Sep, [facility] [place] [facility] [address] [id number] [place] [address] Sep, [facility] [place] [facility] [address] [id number] [place] [address] Sep, [facility] [place] [facility] [address] [id number] [place] [address] Aug, [facility] [place] [facility] [address] [id number] [place] [address] Aug, [facility] [place] [facility] [address] [id number] [place] [address] Aug, [facility] [place] [facility] [address] [id number] [place] [address] Aug, [facility] [place] [facility] [address] [id number] [place] [address] Aug, [facility] [place] [facility] [address] [id number] [place] [address] 28 Aug, 2014 [facility] [place] [facility] [address] [id number] [place] [address] 17 Aug, 2014 [facility] [place] [facility] [address] [id number] [place] [address] 17 Aug, 2014 [facility] [place] [facility] [address] [id number] [place] [address] 480[address] 30 Jul, 2013 [facility] [place] [facility] [address] [id number] [place] [address] 30 Jul, 2013 [facility] [place] [facility] [address] [id number] [place] [address]- [address] 30 Jul, 2014 [facility] [place] [facility] [address] [id number] [place] [address] 30 Jul, 2014 [facility] [place] [facility] [address] [id number] [place] [address] 25 Jul, 2014 [facility] [place] [facility] [address] [id number] [place] [address] 25 Jul, 2014 [facility] [place] [facility] [address] [id number] [place] [address] 115[address] 15 Jul, 2014 [facility] [place] [facility] [address] [id number] [place] [address] 15 Jul, 2014 [facility] [place] [facility] [address] [id number], [place] [address] 11 Jul, 2014 [facility] [place] [facility] [address] [id number] [place] [address] Jul, [facility] [place] [facility] [address] [id number] [place] [address] Jun, [facility] [place] [facility] [address] [id number] [place] [address] Jun, [facility] [place] [facility] [address] [id number] [place] [address] Jun, [facility] [place] [facility] [address] [id number] [place] [place] [address] Jun, [facility] [place] [facility] [address] [id number] [place] [address] Jun, [facility] [place] [facility] [address] [id number] [place] [address]- 0933 Jun, [facility] [place] [facility] [address] [id number] [place] [address] 9843 Jun, [facility] [place] [facility] [address] [id number] [place] [address] 8518 Jun, [facility] [place] [facility] [address] [id number] [place] [address]- 2276 Jun, [facility] [place] [facility] [address] [id number] [place] [address]- 3027 Jun, [facility] [place] [facility] [address] [id number] [place] [address]- 9513 Jun, [facility] [place] [facility] [address] [id number] [place] [address]- 0829 Jun, [facility] [place] [facility] [address] [id number] [place] [address]- 1168 Jun, [facility] [place] [facility] [address] [id number] [place] [address]- 2080 Jun, [facility] [place] [facility] [address] [id number] [place] [address]- 2542 Jun, [facility] [place] [facility] [address] [id number] [place] [address]- 5082 Jun, [facility] [place] [facility] [address] [id number] [place] [address]- 6179 Jun, [facility] [place] [facility] [address] [id number] [place] [address]- 2922 Jun, [facility] [place] [facility] [address] [id number] [place] [address]- 6234 Jun, [facility] [place] [facility] [address] [id number] [place] [address]- 6821 Jun, [facility] [place] [facility] [address] [id number] [facility] [place] [address] 56[address] Jun, [facility] [place] [facility] [address] [id number] [place] [address]- 8767 Jun, [facility] [place] [facility] [address] [id number] [place] [address]- 0498 May, [facility] [place] [facility] [address] [id number] [place] [address]- 7223 May, [facility] [place] [facility] [address] [id number] [place] [address]- 6817 May, [facility] [place] [facility] [address] [id number] [place] [address]- 0599 May, [facility] [place] [facility] [address] [id number] [place] [address]- 8823 May, [facility] [place] [facility] [address] [id number] [place] [address]- 6396 May, [facility] [place] [facility] [address] [id number] [place] [address]- 1482 May, [facility] [place] [facility] [address] [id number] [place] [address]- 9024 May, [facility] [place] [facility] [address] [id number] [place] [address]- 6360 May, [facility] [place] [facility] [address] [id number] [place] [address]- 5772 May, [facility] [place] [facility] [address] [id number] [place] [address]- 4957 May, [facility] [place] [facility] [address] [id number] [place] [address]- 2295 May, [facility] [place] [facility] [address] [id number] [place] [address]- 2612 May, [facility] [place] [facility] [address] [id number] [place] [address]- 6797 Apr, [facility] [place] [facility] [address] [id number] [place] [address]- 7575 Apr, [facility] [place] [facility] [address] [id number] [place] [address]- 0492 Apr, [facility] [place] [facility] [address] [id number] [place] [address]- 3470 Apr, [facility] [place] [facility] [address] [id number] [place] [address]- 2933 Apr, [facility] [place] [facility] [address] [id number] [place] [address]- 0353 Apr, [facility] [place] [facility] [address] [id number] [place] [address]- 7026 Apr, [facility] [place] [facility] [address] [id number] [place] [address]- 7291 Apr, [facility] [place] [facility] [address] [id number] [place] [address]- 5468 Apr, [facility] [place] [facility] [address] [id number] [place] [address]- 8503 March, [facility] [place] [facility] [address] [id number] [place] [address]- 9641 March, [facility] [place] [facility] [address] [id number] [place] [address]- 8236 March, [facility] [place] [facility] [address] [id number] [place] [address]- 7227 March, [facility] [place] [facility] [address] [id number] [place] [address]- 1415 March, [facility] [place] [facility] [address] [id number] [place] [address]- 2169 March, [facility] [address] [id number] [place] [address]- 7999 March, [facility] [address] [id number] [place] [address]- 8118 March, [facility] [address] [id number] [place] [address]- 2713 March, [facility] [address] [id number] [place] [address]- 0271 March, [facility] [address] [id number] [place] [address]- 7137 March, [facility] [address] [id number] [place] [address]- 0863 March, [facility] [address] [id number] [place] [address]- 8287 March, [facility] [address] [id number] [place] [address]- 3051 March, [facility] [address] [id number] [place] [address]- 3440 March, [facility] [address] [id number] [place] [address]- 4192 March, [facility] [address] [id number] [place] [address]- 2573 March, [facility] [address] [id number] [place] [address]- 5228 March, [facility] [address] [id number] [place] [address]- 2951 March, [facility] [address] [id number] [place] [address]- 5587 March, [facility] [address] [id number] [place] [address]- 0879 Feb, [facility] [place] [facility] [address] [id number] [place] [address]- 4700 Feb, [facility] [place] [facility] [address] [id number] [place] [address]- 9224 Feb, [facility] [place] [facility] [address] [id number] [place] [address]- 3396 Feb, [facility] [place] [facility] [address] [id number] [place] [address]- 8563 Feb, [facility] [place] [facility] [address] [id number] [place] [address]- 3626 Feb, [facility] [place] [facility] [address] [id number] [place] [address]- 7398 Feb, [facility] [place] [facility] [address] [id number] [place] [address]- 4150 Feb, [facility] [place] [facility] [address] [id number] [place] [address]- 1063 Jan, [facility] [place] [facility] [address] [id number] [place] [address]- 6199 Jan, [facility] [place] [facility] [address] [id number] [place] [address]- 8094 Jan, [facility] [place] [facility] [address] [id number] [place] [address]- 8455 24 Jan, 2014 [facility] [place] [facility] [address] [id number] [place] [address]- 8792 Jan, [facility] [place] [facility] [address] [id number] [place] [address]- 9291 Jan, [facility] [place] [facility] [address] [id number] [place] [address]- 7158 Jan, [facility] [place] [facility] [address] [id number] [place] [address]71 Jan, [facility] [place] [facility] [address] [id number] [place] [address]- 8389 Jan, [facility] [place] [facility] [address] [id number] [place] [address]- 9753 Jan, [facility] [place] [facility] [address] [id number] [place] [address]- 8169 Dec, [facility] [place] [facility] [address] [id number] [place] [address]- 5406 Dec, [facility] [place] [facility] [address] [id number] [place] [address]- 8697 Dec, [facility] [place] [facility] [address] [id number] [place] [address]- 1433 Dec, [facility] [place] [facility] [address] [id number] [place] [address]- 4276 Dec, [facility] [place] [facility] [address] [id number] [place] [address]- 2237 Dec, [facility] [place] [facility] [address] [id number] [place] [address]- 9881 Dec, [facility] [place] [facility] [address] [id number] [place] [address]- 2066 Dec, [facility] [place] [facility] [address] [id number] [place] [address]- 1414 Nov, [facility] [place] [facility] [address] [id number] [place] [address]- 5489 Nov, [facility] [place] [facility] [address] [id number] [place] [address]- 7569 Nov, [facility] [place] [facility] [address] [id number] [place] [address]- 2787 Nov, [facility] [place] [facility] [address] [id number] [place] [address]- 5107 Nov, [facility] [place] [facility] [address] [id number] [place] [address]- 3057 Nov, [facility] [place] [facility] [address] [id number] [place] [address]- 2101 Nov, [facility] [address] [id number] [place] [address]- 3962 Nov, [facility] [place] [facility] [address] [id number] [place] [address]- 6891 Nov, [facility] [place] [facility] [address] [id number] [place] [address]- 6500 Nov, [facility] [address] [id number] [place] [address]- 1161 Nov, [facility] [address] [id number] [place] [address]- 2165 Nov, [facility] [address] [id number] [place] [address]- 6153 Nov, [facility] [address] [id number] [place] [address]- 9229 Oct, [facility] [place] [facility] [address] [id number] [place] [address]- 7720 Oct, [facility] [address] [id number] [place] [address]- 8824 Oct, [facility] [place] [facility] [address] [id number] [place] [address]- 9074 Oct, [facility] [place] [facility] [address] [id number] [place] [address]- 1538 Oct, [facility] [place] [facility] [address] [id number] [place] [address]- 9551 Oct, [facility] [place] [facility] [address] [id number] [place] [address]- 0582 Oct, [facility] [place] [facility] [address] [id number] [place] [address]281 Oct, [facility] [place] [facility] [address] [id number], [place] [address]- 9994 Oct, [facility] [address] [id number] [place] [address]- 1321 17 Oct, 2013 [facility] [place] [facility] [address] [id number] [place] [address]- 0001 Oct, [facility] [place] [facility] [address] [id number] [place] [address]- 4135 Oct, [facility] [place] [facility] [address] [id number] [place] [address]- 0272 Oct, [facility] [place] [facility] [address] [id number] [place] [address]- 2929 Oct, [facility] [place] [facility] [address] [id number] [place] [address]- 6796 Sep, [facility] [address] [id number] [place] [address]- 6767 Sep, [facility] [place] [facility] [address] [id number] [place] [address]- 2587 Sep, [facility] [place] [facility] [address] [id number], [place] [address]- 4702 Sep, [facility] [place] [facility] [address] [id number], [place] [address]- 4161 Sep, [facility] [place] [facility] [address] [id number], [place] [address]- 8813 Sep, [facility] [place] [facility] [address] [id number], [place] [address]- 1688 Sep, [facility] [place] [facility] [address] [id number], [place] [address]- 3618 Sep, [facility] [place] [facility] [address] [id number], [place] [address]- 2756 Sep, [facility] [place] [facility] [address] [id number], [place] [address]- 5580 Sep, [facility] [place] [facility] [address] [id number] [place] [address]- 0691 24 Aug, 2012 [facility] [place] [facility] [address] [id number] [place] [address]- 4416 24 Aug, 2012 [facility] [place] [facility] [address] [id number] [place] [address]- 6879 24 Aug, 2012 [facility] [place] [facility] [address] [id number] [place] [address]- 4066 24 Aug, 2012 [facility] [place] [facility] [address] [id number] [place] [address]- 1764 Aug, 2012 [facility] [place] [facility] [address] [id number] [place] [address]- 2491 Aug, 2012 [facility] [place] [facility] [address] [id number] [place] [address]- 9673 Aug, 2012 [facility] [place] [facility] [address] [id number] [place] [address]- 2877 Aug, 2012 [facility] [place] [facility] [address] [id number] [place] [address]- 3684 Aug, 2012 [facility] [place] [facility] [address] [id number] [place] [address]- 3877 22 Aug, 2012 [facility] [place] [facility] [address] [id number] [place] [address]- 0341 18 Aug, 2012 [facility] [place] [facility] [address] [id number] [place] [address]- 0538 18 Aug, 2012 [facility] [place] [facility] [address] [id number] [place] [address]- 0547 18 Aug, 2012 [facility] [place] [facility] [address] [id number] [place] [address]- 7256 18 Aug, 2012 [facility] [place] [facility] [address] [id number] [place] [address]- 8464 17 Aug, 2012 [facility] [place] [facility] [address] [id number] [place] [address]- 6871 14 Aug, 2013 [facility] [place] [facility] [address] [id number] [place] [address]- 1573 14 Aug, 2013 [facility] [place] [facility] [address] [id number] [place] [address]- 9312 01 Aug, 2013 [facility] [place] [facility] [address] [id number] [place] [address]- 5844 20 Jul, 2013 [facility] [place] [facility] [address] [id number] [place] [address]- 9766 19 Jul, 2013 [facility] [place] [facility] [address] [id number] [place] [address]- 5150 18 Jul, 2013 [facility] [place] [facility] [address] [id number] [place] [address]- 0351 11 Jul, 2013 [facility] [place] [facility] [address] [id number] [place] [address]- 8007 Jul, [facility] [place] [facility] [address] [id number] [place] [address]- 4640 28 Jun, 2013 [facility] [place] [facility] [address] [id number] [place] [address]- 0517 Jun, [facility] [place] [facility] [address] [id number] [place] [address]- 2891 Jun, [facility] [place] [facility] [address] [id number] [place] [address]- 7069 15 Jun, 2013 [facility] [place] [facility] [address] [id number], [place] [address]- 7133 14 Jun, 2013 [facility] [place] [facility] [address] [id number] [place] [address]- 4784 Jun, [facility] [place] [facility] [address] [id number] [place] [address]- 0792 Jun, [facility] [place] [facility] [address] [id number] [place] [address]- 9993 08 Jun, 2013 [facility] [place] [facility] [address] [id number] [place] [address]- 6955 Jun, [facility] [place] [facility] [address] [id number] [place] [address]- 7540 Jun, [facility] [place] [facility] [address] [id number] [place] [address]- 6145 May, [facility] [place] [facility] [address] [id number] [place] [address]- 9297 May, [facility] [place] [facility] [address] [id number] [place] [address]- 7421 May, [facility] [place] [facility] [address] [id number] [place] [address]- 3464 May, [facility] [place] [facility] [address] [id number] [place] [address]- 7910 May, [facility] [place] [facility] [address] [id number] [place] [address]- 2342 May, [facility] [place] [facility] [address] [id number] [place] [address]- 3816 May, [facility] [place] [facility] [address] [id number] [place] [address]- 8256 May, [facility] [place] [facility] [address] [id number] [place] [address]- 6011 May, [facility] [place] [facility] [address] [id number] [place] [address]- 6694 Apr, [facility] [place] [facility] [address] [id number] [place] [address]- 2893 Apr, [facility] [place] [facility] [address] [id number] [place] [address]- 9505 Apr, [facility] [place] [facility] [address] [id number] [place] [address]- 3535 Apr, [facility] [place] [facility] [address] [id number] [place] [address]- 1626 Apr, [facility] [place] [facility] [address] [id number] [place] [address]- 5521 Apr, [facility] [address] [id number] [place] [address]- 1439 Apr, [facility] [address] [id number] [place] [address]- 3914 March, [facility] [address] [id number] [place] [address]- 4656 Feb, [facility] [address] [id number] [place] [address]- 4674 Feb, [facility] [address] [id number] [place] [address]- 1496 Feb, [facility] [address] [id number] [place] [address]- 7906 Jan, [facility] [address] [id number] [place] [address]- 5221 Jan, [facility] [address] [id number] [place] [address]- 2863 Jan, [facility] [address] [id number] [place] [address]- 6181 Jan, [facility] [address] [id number] [place] [address]- 3338 Jan, [facility] [address] [id number] [place] [address]- 7640 Jan, [facility] [place] [facility] [address] [id number] [place] [address]- 3632 Jan, [facility] [place] [facility] [address] [id number] [place] [address]- 2377 Jan, [facility] [place] [facility] [address] [id number] [place] [address]- 2582 Dec, [facility] [place] [facility] [address] [id number] [place] [address]- 7296 25 Dec, 2012 [facility] [address] [id number] [place] [address]- 1746 13 Dec, 2012 [facility] [address] [id number] [place] [address]- 6526 11 Dec, 2012 [facility] [address] [id number] [place] [address]- 0376 07 Dec, 2012 [facility] [address] [id number] [place] [address]- 3608 06 Dec, 2012 [facility] [address] [id number] [place] [address]- 9203 05 Dec, 2012 [facility] [address] [id number] [place] [address]- 4685 Nov, [facility] [address] [id number] [place] [address]- 1795 24 Nov, 2012 [facility] [address] [id number] [place] [address]- 6469 Nov, [facility] [address] [id number] [place] [address]- 2286 15 Nov, 2012 [facility] [address] [id number] [place] [address]- 1124 Nov, [facility] [address] [id number] [place] [address]- [address] Nov, [facility] [address] [id number] [place] [address] Nov, [facility] [address] [id number] [place] [address] Oct, [facility] [address] [id number] [place] [address] Oct, [facility] [address] [id number] [place] [address] Oct, [facility] [place] [facility] [address] [id number] [place] [address] Oct, [facility] [place] [facility] [address] [id number] [place] [address] Oct, [facility] [place] [facility] [address] [id number] [place] [address] Oct, [facility] [place] [facility] [address] [id number] [place] [address] Oct, [facility] [place] [facility] [address] [id number] [place] [address] Oct, [facility] [place] [facility] [address] [id number] [place] [address] Oct, [facility] [place] [facility] [address] [id number] [place] [address] Oct, [facility] [place] [facility] [address] [id number] [place] [address] Oct, [facility] [place] [facility] [address] [id number] [place] [address] Oct, [facility] [place] [facility] [address] [id number] [place] [address] Sep, [facility] [place] [facility] [address] [id number] [place] [address] Sep, [facility] [place] [facility] [address] [id number] [place] [address] Sep, [facility] [place] [facility] [address] [id number] [place] [address] Sep, [facility] [place] [facility] [address] [id number] [place] [address] Sep, [facility] [place] [facility] [address] [id number] [place] [address] Sep, [facility] [place] [facility] [address] [id number] [place] [address] 8425 Sep, [facility] [place] [facility] [address] [id number] [place] [address] 37[address] Sep, [facility] [place] [facility] [address] [id number] [place] [address] Sep, [facility] [place] [facility] [address] [facility] [place] [id number] [place] [address] Sep, [facility] [place] [facility] [address] [id number], [place] [address] Sep, [facility] [place] [facility] [address] [id number] [place] [address] Aug, [facility] [place] [facility] [address] [id number] [place] [address] 133[address] Aug, [facility] [place] [facility] [address] [facility] [place] [id number] [place] [address] Aug, [facility] [place] [facility] [address] [id number], [place] [address] Aug, [facility] [place] [facility] [address] [id number], [place] [address] Aug, [facility] [place] [facility] [address] [facility] [place] 2[facility] [id number], [place] [address] Aug, [facility] [place] [facility] [address] [id number], [place] [address] Aug, [facility] [place] [facility] [address] [id number], [place] [address] Aug, [facility] [place] [facility] [address] [id number], [place] [address] Aug, [facility] [place] [facility] [address] [facility] [place] [id number], [place] [address] Aug, [facility] [place] [facility] [address] [facility] [place] 2[facility] [id number], [place] [address] Jul, [facility] [place] [facility] [address] [id number] [place] [address] 20 Jul, 2012 [facility] [place] [facility] [address] [id number] [place] [address]- [address] 10 Jul, 2012 [facility] [place] [facility] [address] [id number] [place] [address] 2546 Jul, [facility] [place] [facility] [address] [id number] [place] [address]- [address] 30 Jun, 2012 [facility] [place] [facility] [address] [id number] [place] [address] 2540 Jun, [facility] [place] [facility] [address] [id number] [place] [address] 36[address] Jun, [facility] [place] [facility] [address] [id number] [place] [address] Jun, [facility] [place] [facility] [address] [id number] [place] [address]- 5848 Jun, [facility] [place] [facility] [address] [id number] [place] [address]- [address] Jun, [facility] [place] [facility] [address] [id number] [place] [address]- 4628 Jun, [facility] [place] [facility] [address] [id number] [place] [address]- 46[address] May, [facility] [place] [facility] [address] [id number] [place] [address] 2546 May, [facility] [place] [facility] [address] [id number] [place] [address] 1679 May, [facility] [place] [facility] [address] [id number] [place] [address]- 8835 May, [facility] [place] [facility] [address] [id number] [place] [address] 2548 May, [facility] [place] [facility] [address] [id number] [place] [address]- [address]21 Apr, [facility] [place] [facility] [address] [id number] [place] [address]007 Apr, [facility] [address] [id number] [place] [address]484 Apr, [facility] [address] [id number] [place] [address]- 29[address] Apr, [facility] [address] [id number] [place] [address]- 5[address] Apr, [facility] [address] [id number] [place] [address] 4[address] March, [facility] [address] [id number] [place] [address]- 114[address] March, [facility] [address] [id number] [place] [address]- 7790 March, [facility] [address] [id number] [place] [address]- 5837 March, [facility] [address] [id number] [place] [address]- 7860 March, [facility] [address] [id number] [place] [address]- [address]99 March, [facility] [address] [id number] [place] [address]- 9021 March, [facility] [address] [id number] [place] [address]- 0723 March, [facility] [place] [facility] [address] [id number] [place] [address]- 9776 March, [facility] [place] [facility] [address] [id number] [place] [address]- 9266 March, [facility] [address] [id number] [place] [address]- 7553 Feb, [facility] [place] [facility] [address] [id number] [place] [address]- 7155 Feb, [facility] [place] [facility] [address] [id number] [place] [address]- 6407 Feb, [facility] [place] [facility] [address] [id number] [place] [address] Feb, [facility] [place] [facility] [address] [id number] [place] [address]- 5446 Feb, [facility] [place] [facility] [address] [id number] [place] [address]- 6709 Feb, [facility] [place] [facility] [address] [id number] [place] [address]- 7987 Feb, [facility] [place] [facility] [address] [id number] [place] [id number] Feb, [facility] [place] [facility] [address] [id number] [place] [address] Feb, [facility] [place] [facility] [address] [id number] [place] [address] Jan, [facility] [place] [facility] [address] [id number] [place] [address] Jan, [facility] [place] [facility] [address] [id number] [place] [address] Jan, [facility] [place] [facility] [address] [id number] [place] [address] Jan, [facility] [place] [facility] [address] [id number] [place] [address] Dec, [facility] [place] [facility] [address] [id number] [place] [address] Dec, [facility] [place] [facility] [address] [id number] [place] [address] Nov, [facility] [place] [facility] [address] [id number] [place] [address] Nov, [facility] [place] [facility] [id number] [place] [address] Nov, [facility] [id number] [place] [address] Nov, [facility] [id number] [address] Nov, [facility] [id number] [address] Oct, [facility] [id number] [address] Oct, [facility] [id number] [place] [address] Oct, [facility] [id number] [address] Oct, [facility] [id number] [place] [address] Oct, [facility] [id number] [address] Oct, [facility] [id number] [address] Oct, [facility] [id number], [place] [address] Oct, 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
--- OUTSIDE RECORDS SUMMARY | 2018-09-04 11:24 | XMS REPORT ---
Author Author SHAHNAZ MARQUEZ [facility] Address [address] [place] [address] Care Team Providers Care Lunchroom Monitor Name Role Phone SHAHNAZ MARQUEZ Unavailable PROBLEMS Type Condition ICD9-CM Code AKP99-OH Code Onset Dates Condition Status SNOMED Code Problem Reactive depression F32.9 Active 64843549 Problem Anxiety F41.9 Active 63920699 Problem Pharyngeal dysphagia R13.13 Active 16149265481626 Problem Suprapubic catheter Z93.59 Active 652653904 Problem Encounter for suprapubic catheter care Z43.5 Active 981127801 Problem Insomnia G47.00 Active 925105914 Problem Peripheral vascular disease I73.9 Active 338000320 Problem 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 Active 50853758 Problem Paroxysmal atrial fibrillation I48.0 Active 908663960 Problem Hypertension I10 Active 95639265 Problem Other chronic pain G89.29 Active 23340824 Problem Low back pain M54.5 Active 869576448 Problem Coronary artery disease I25.10 Active 06411299 Problem Type 2 diabetes mellitus without complication, without long-term current use of insulin E11.9 Active 594219802 Problem Hyperlipidemia E78.5 Active 83273219 Problem Ventral hernia without obstruction or gangrene K43.9 Active 324064309 ALLERGIES No Information ENCOUNTERS Encounter Location Date Diagnosis [facility] [address] [place] [id number] Aug, Encounter for suprapubic catheter care Z43.5 [facility] [address] [facility] [id number], [place] [address] Jul, [facility] [employer] [address] [facility] [place] [id number] Jul, [facility] [address] [facility] [id number], [place] [address] Jul, Other chronic pain G89.29 [place] [address] [facility] [id number], [place] [address] 9778 Jul, [place] [address] [facility] [id number], [place] [address] 1993 Jul, Via [employer] [address] [place] [id number] Jun, 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 [place] [id number] [place] [address]383- 0986 Jun, Other chronic pain G89.29 [place] [address] [facility] [id number], [place] [address] Jun, [facility] [employer] [address] [place] [id number] May, Anxiety F41.9 ; Type 2 diabetes mellitus without complication, without long-term current use of insulin E11.9 ; Hypertension I10 ; Low back pain M54.5 ; Paroxysmal atrial fibrillation I48.0 and 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 [place] [address] [facility] [id number], [place] [address] May, Other chronic pain G89.29 [facility] [employer] [address] [place] [id number] May, Low back pain M54.5 [place] [address] [facility] [id number], [place] [address] 2373 May, [place] [address] [facility] [id number], [place] [address]- 7762 Apr, Other chronic pain G89.29 [place] [address] [facility] [id number], [place] [address]- 6621 Apr, [place] [address] [facility] [id number] [place] [address] 84705- 8186 Apr, [facility] [employer] [address] [place] [id number] Apr, Closed compression fracture of L3 lumbar vertebra with routine healing, subsequent encounter S32.030D [facility] [employer] [address] [place] [id number] 14 Apr, 2018 Low back pain M54.5 Via [employer] [address] [place] [id number] Apr, Coccydynia M53.3 [facility] [address] [facility] [id number], [place] [address] 3[address] March, [facility] [address] [facility] [id number] [place] [address] 45783- 4489 March, Other chronic pain G89.29 [facility] [address] [facility] [id number], [place] [address] 0016 March, [facility] [address] [facility] [id number] [place] [address] 80173- 6875 March, [facility] [address] [id number], [place] [address] 9585 Feb, [facility] [id number] [place] [address] 23192- 7134 Feb, Other chronic pain G89.29 Via [employer] [address] [place] [id number] Feb, Other chronic pain G89.29 and Anxiety F41.9 [facility] [address] [id number], [place] [address] 0900 Feb, [facility] [address] [id number], [place] [address] 4318 Jan, [facility] [address] [facility] [id number], [place] [address]- 7771 Jan, [facility] [address] [facility] [id number], [place] [address] 4[address] Jan, [facility] [address] 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 ; Other chronic pain G89.29 ; Anxiety F41.9 ; Reactive depression F32.9 ; Insomnia G47.00 and Type 2 diabetes mellitus without complication, without long-term current use of insulin E11.[address] [id number] [place] [address] Nov [facility] [id number] [place] [id number] Nov, Anxiety F41.9 [facility] [address] [id number] [place] [id number]- 1559 Nov, [facility] [id number] [place] [address] [id number] Nov, Anxiety F41.9 [facility] [employer] [address] [place] [id number] Nov, Status post surgery Z98.890 ; Confused R41.0 ; Anxiety F41.9 and Other chronic pain G89.29 [facility] [id number] [place] [address] [id number] Nov, Other chronic pain G89.29 [facility] [address] [facility] [id number] [address] Oct, [facility] [id number] [place] [address] [id number] Oct, Other chronic pain G89.29 [facility] [address] [facility] [id number] [address] Oct, Anxiety F41.9 [facility] [id number] [place] [address] [id number] Sep, Other chronic pain G89.29 [facility] [address] [id number] [address] Sep, [facility] [employer] [address] [place] [address] Aug, Dysuria R30.0 and Anxiety F41.9 [facility] [id number] [place] [address] [id number]- 3827 Aug, [facility] [id number] [place] [address] [id number] Aug, Other chronic pain G89.29 [facility] [id number] [place] [address] [id number]- 5107 Jul, Other chronic pain G89.29 [facility] [id number] [place] [address] [id number] Jun, [facility] [address] [id number] Jun, Other chronic pain G89.29 [facility] [id number] [place] [address] 58638- 4246 Jun, [facility] [id number] [place] [address] 62541- 2521 May, Other chronic pain G89.29 [facility] [id number] [place] [address] 46891- 3786 Apr, Other chronic pain G89.29 [facility] [address] [place] [id number] Apr, Reactive depression F32.9 and Pharyngeal dysphagia R13.13 [facility] [address] [place] [address] 04434- 7074 Apr, Urinary tract infection without hematuria, site unspecified N39.0 [facility] [id number] [place] [address] 13758- 1427 March, Other chronic pain G89.29 [facility] [id number] [place] [address] [id number]- 5075 Feb, Other chronic pain G89.29 [facility] [id number] [place] [address] 66176- 7798 Feb, [facility] [address] [id number] [id number] Feb, [facility] [employer] [address] [place] [id number] Feb, Dysuria R30.0 and Ventral hernia without obstruction or gangrene K43.9 [facility] [address]65[address], [place] [address]- 5852 Jan, Other chronic pain G89.29 [facility] [id number] [place] [address] [id number] Dec, Other chronic pain G89.29 [facility] [id number] [place] [address] 60949- 0817 Nov, Other chronic pain G89.29 [facility] [employer] [address] [place] [id number] Nov, Lymphadenitis I88.9 [facility] [id number] [place] [address] 11701- 8822 Nov, Other chronic pain G89.29 [facility] [address] [place] [address] 21503- 8862 Nov, [facility] [id number] [place] [address] [id number] Nov, Other chronic pain G89.29 Via [employer] [address] [place] [id number] Oct, Low back pain M54.5 ; Hypertension I10 and Type 2 diabetes mellitus without complication, without long-term current use of insulin E11.9 [facility] [address]65[address], [place] [address]- 4153 Oct, [facility] [id number] [place] [address] 17340- 9974 Oct, [facility] [address]00565[address], [place] [address]- 8001 Oct, [facility] [id number] [place] [address] 34920- 9657 Oct, [facility] [address] [facility] [id number], [place] [address]- 1069 Sep, [facility] [address] [facility] [id number], [place]- 7644 Sep, [facility] [address] [facility] [id number], [place] [address]- 0911 Aug, Other chronic pain G89.29 [facility] [address] [id number], [place] [address]- 3752 Jul, [facility] [address] [id number], [place] [address]- 6359 Jul, [facility] [address] [facility] [id number], [place] [address]- 7606 Jul, [facility] [address] [facility] [id number], [place] [address]- 9587 Jun, [facility] [address] [facility] [id number], [place] [address]- 8014 Jun, Via [facility] [address] [place] [id number] Jun, Low back pain M54.5 ; Other chronic pain G89.29 and Coronary artery disease I25.10 [facility] [address] [facility] [id number], [place] [address]- 7871 Jun, [facility] [address] [facility] [id number], [place] [address]- 2778 May, [facility] [address] [facility] [id number], [place] [address]- 3718 May, [facility] [address] [facility] [id number], [place] [address]- 7174 May, Other chronic pain G89.29 [facility] [address] [facility] [id number], [place] [address]- 5389 May, [facility] [address]65[address], [place] [address] 2546 28 Apr, 2016 [facility] [address] [place] [address] 49152 2546 17 Apr, 2016 Acute cystitis without hematuria N30.00 [facility] [address]65[address], [place] [address] 2546 16 Apr, 2016 Acute cystitis without hematuria N30.00 ; Coronary artery disease I25.10 ; Low back pain M54.5 and Other chronic pain G89.29 [facility] [address] [id number], [place] [address]- 2602 13 Apr, 2016 Other chronic pain G89.29 [facility] [id number] [place] [address] 66973- 6816 March, Other chronic pain G89.29 [facility] [address] [id number], [place] [address]- 7836 18 Feb, 2016 [facility] [id number] [place] [address] 51058 2548 15 Feb, 2016 Arthritis M19.90 [facility] [id number] [place] [address] 15672 2546 Feb, [facility] [address]65[address], [place] [address] 2546 Jan, [facility] [address]65[address], [place] [address] 2546 Jan, [facility] [address]65[address], [place] [address] 2546 Jan, Other chronic pain G89.29 [facility] [address], [place] [address] 2546 Jan, Hypertension I10 ; Coronary artery disease I25.10 and Insomnia G47.00 [facility] [address]65[address], [place] [address] 2546 Jan, [facility] [address], [place] [address]- 7996 Dec, Right hip pain M25.551 [facility] [address] [facility] [id number], [place] [address]- 6596 Dec, [facility] [address] [id number], [place] [address] 2546 Dec, [facility] [address] [facility] [id number] [place] [address] 21412 2546 Dec, [facility] [address] [facility] [id number], [place] [address] 2549 Dec, Other chronic pain G89.29 [facility] [address] [id number], [place] [address]- 3817 Dec, [facility] [address], [place] [address]- 1365 Nov, [facility] [address]65[address], [place] [address]- 4049 Nov, Other chronic pain G89.29 [facility] [address]65[address], [place] [address] 2548 Nov, Right hip pain M25.551 and Coronary artery disease I25.10 [facility] [address], [place] [address]- 2544 Nov, Other chronic pain G89.29 [facility] [address], [place] [address]- 5241 Oct, [facility] [address] [id number], [place] [address] 2541 Oct, [facility] [address], [place] [address]- 2542 Sep, [facility] [address], [place] [address]- 2545 Sep, [facility] [address] [id number] [place] [address]- 0578 Aug, [facility] [id number] [place] [address] 58291- 1468 Aug, Hypertension I10 ; Coronary artery disease I25.10 and Arthritis M19.90 [facility] [id number] [place] [address], [place] [address]- 9733 Jun, [facility] [id number] [place] [address] 53855- 0002 Jun, Essential hypertension, benign 401.1 ; Other chronic pain 338.29 and Chronic airway obstruction, not elsewhere classified 496 [facility] [id number] [place] [address], [place] [address]- 4796 Jun, [facility] [id number] [place] [address] 65096- 3219 Jun, [facility] [id number] [place] [address] 59417- 1829 Jun, [facility] [address] [place] [address]- 9746 May, [facility] [id number] [place] [address] 02292- 4247 May, [facility] [address] [place] [address]- 6558 Apr, [facility] [address], [place] [address]- 2910 Apr, [facility] [address] [id number] [place] [address]- 2387 Apr, [facility] [id number] [place] [address], [place] [address]- 8482 March, [facility] [address], [place] [address]- 3185 March, [facility] [id number] [place] [address] 77229- 2546 March, [facility] [address] [id number] [place] [address]- 1328 March, [facility] [address] [facility] [id number] [place] [address]- 3904 March, Sialadenitis 527.2 [facility] [address] [id number] [place] [address]- 3144 Feb, [facility] [address] [id number] [place] [address]- 0661 Feb, [facility] [address] [id number] [place] [address]- 6605 Feb, [facility] [address] [facility] [id number] [place] [address]- 1723 Feb, [facility] [address] [facility] [id number] [place] [address]- 4098 Feb, [facility] [address] [facility] [id number] [place] [address]- 8204 Jan, [facility] [address] [id number] [place] [address]- 5760 Jan, [facility] [address] [facility] [id number] [place] [address]- 6619 Jan, [facility] [address] [facility] [id number] [place] [address]- 8922 Jan, [facility] [address] [id number] [place] [address]- 3811 Jan, [facility] [address] [id number] [place] [address]- 8734 Jan, [facility] [address] [facility] [id number] [place] [address]- 9217 Dec, [facility] [address] [facility] [id number] [place] [address]- 1618 Dec, [facility] [place] [facility] [address] [id number] [place] [address]- 9957 10 Dec, 2014 [facility] [place] [facility] [address] [id number] [place] [address]- 4323 Dec, [facility] [place] [facility] [address] [id number] [place] [address]- 1624 Dec, [facility] [place] [facility] [address] [id number] [place] [address]- 4001 Dec, [facility] [place] [facility] [address] [id number] [place] [address]- 1395 Nov, [facility] [place] [facility] [address] [id number] [place] [address]- 1571 Nov, [facility] [place] [facility] [address] [id number] [place] [address]- 4377 Nov, [facility] [place] [facility] [address] [id number] [place] [address]- 5069 Nov, [facility] [place] [facility] [address] [id number] [place] [address]- 6432 Nov, [facility] [place] [facility] [address] [id number] [place] [address]- 2260 Nov, [facility] [place] [facility] [address] [id number] [place] [address]- 6846 Nov, [facility] [place] [facility] [address] [id number], [place] [address]- 0624 Nov, [facility] [place] [facility] [address] [id number] [place] [address]- 6782 Nov, [facility] [place] [facility] [address] [id number] [place] [address]- 7652 Nov, [facility] [place] [facility] [address] [id number] [place] [address]- 7568 Nov, [facility] [place] [facility] [address] [id number], [place] [address]- 1166 Nov, [facility] [place] [facility] [address] [id number] [place] [address]- 8767 Nov, [facility] [place] [facility] [address] [id number] [place] [address]- 8121 Nov, [facility] [place] [facility] [address] [facility] [id number] [place] [address]- 9050 Oct, [facility] [place] [facility] [address] [id number] [place] [address]- 9573 Oct, [facility] [place] [facility] [address] [id number] [place] [address] Oct, [facility] [place] [facility] [address] [id number] [place] [address] Oct, [facility] [place] [facility] [address] [facility] [id number] [place] [address] Oct, [facility] [place] [facility] [address] [id number] [place] [address] Oct, [facility] [place] [facility] [address] [id number] [place] [address] Oct, [facility] [place] [facility] [address] [facility] [id number] [place] [address] Oct, [facility] [place] [facility] [address] [id number] [place] [address] Oct, [facility] [place] [facility] [address] [id number] [place] [address] Sep, [facility] [place] [facility] [address] [id number] [place] [address] Sep, [facility] [place] [facility] [address] [facility] [id number] [place] [address] Sep, [facility] [place] [facility] [address] [facility] [id number] [place] [address] Sep, [facility] [place] [facility] [address] [id number] [place] [address] Sep, [facility] [place] [facility] [address] [id number] [place] [address] Sep, [facility] [place] [facility] [address] [id number] [place] [address] Sep, [facility] [place] [facility] [address] [id number] [place] [address] Sep, [facility] [place] [facility] [address] [id number] [place] [address] Sep, [facility] [place] [facility] [address] [id number] [place] [address] Sep, [facility] [place] [facility] [address] [id number] [place] [address] Sep, [facility] [place] [facility] [address] [id number] [place] [address] Sep, [facility] [place] [facility] [address] [id number] [place] [address] Aug, [facility] [place] [facility] [address] [id number] [place] [address] Aug, [facility] [place] [facility] [address] [id number] [place] [address] Aug, [facility] [place] [facility] [address] [id number] [place] [address] 29 Aug, 2014 [facility] [place] [facility] [address] [id number] [place] [address] Aug, [facility] [place] [facility] [address] [id number] [place] [address] Aug, [facility] [place] [facility] [address] [id number] [place] [address] Aug, [facility] [place] [facility] [address] [id number] [place] [address] 17 Aug, 2014 [facility] [place] [facility] [address] [id number] [place] [address] 30 Jul, 2013 [facility] [place] [facility] [address] [id number] [place] [address] 30 Jul, 2013 [facility] [place] [facility] [address] [id number] [place] [address] 30 Jul, 2013 [facility] [place] [facility] [address] [id number] [place] [address] 30 Jul, 2013 [facility] [place] [facility] [address] [id number] [place] [address] 25 Jul, 2013 [facility] [place] [facility] [address] [id number] [place] [address] 25 Jul, 2013 [facility] [place] [facility] [address] [id number] [place] [address]307 15 Jul, 2013 [facility] [place] [facility] [address] [id number] [place] [address] 7991 15 Jul, 2013 [facility] [place] [facility] [address] [id number] [place] [address] 7479 11 Jul, 2014 [facility] [place] [facility] [address] [id number] [place] [address] 8281 Jul, [facility] [place] [facility] [address] [id number] [place] [address] 9227 Jun, [facility] [place] [facility] [address] [id number], [place] [address] Jun, [facility] [place] [facility] [address] [id number] [place] [address] 6531 Jun, [facility] [place] [facility] [address] [id number] [place] [address]- 9061 Jun, [facility] [place] [facility] [address] [id number] [place] [address]- 8372 Jun, [facility] [place] [facility] [address] [id number] [place] [address]- 1284 Jun, [facility] [place] [facility] [address] [id number] [place] [address]- 8924 Jun, [facility] [place] [facility] [address] [id number] [place] [address]- 6103 Jun, [facility] [place] [facility] [address] [id number] [place] [address]- 7928 Jun, [facility] [place] [facility] [address] [id number] [place] [address]- 1541 Jun, [facility] [place] [facility] [address] [id number] [place] [address]- 3027 Jun, [facility] [place] [facility] [address] [id number] [place] [address]- 8961 Jun, [facility] [place] [facility] [address] [id number] [place] [address]- 3241 Jun, [facility] [place] [facility] [address] [id number] [place] [address]- 2509 Jun, [facility] [place] [facility] [address] [id number] [place] [address]- 3798 Jun, [facility] [place] [facility] [address] [id number] [place] [address]- 3073 Jun, [facility] [place] [facility] [address] [id number] [place] [address]- 9218 Jun, [facility] [place] [facility] [address] [id number] [place] [address]- 2872 Jun, [facility] [place] [facility] [address] [id number] [place] [address]- 9180 Jun, [facility] [place] [facility] [address] [id number] [place] [address]- 2112 Jun, [facility] [place] [facility] [address] [id number] [place] [address]- 2600 Jun, [facility] [place] [facility] [address] [id number] [place] [address]- 9824 Jun, [facility] [place] [facility] [address] [id number] [place] [address]- 8455 May, [facility] [place] [facility] [address] [id number] [place] [address]- 6432 May, [facility] [place] [facility] [address] [id number] [place] [address]- 3360 May, [facility] [place] [facility] [address] [id number] [place] [address]- 3203 May, [facility] [place] [facility] [address] [id number] [place] [address]- 9488 May, [facility] [place] [facility] [address] [id number] [place] [address]- 0907 May, [facility] [place] [facility] [address] [id number] [place] [address]- 5438 May, [facility] [place] [facility] [address] [id number] [place] [address]- 6323 May, [facility] [place] [facility] [address] [id number] [place] [address]- 0019 May, [facility] [place] [facility] [address] [id number] [place] [address]- 2237 May, [facility] [place] [facility] [address] [id number] [place] [address]- 0725 May, [facility] [place] [facility] [address] [id number] [place] [address]- 2202 May, [facility] [place] [facility] [address] [id number] [place] [address]- 3174 May, [facility] [place] [facility] [address] [id number] [place] [address]- 8328 Apr, [facility] [place] [facility] [address] [id number] [place] [address]- 1855 Apr, [facility] [place] [facility] [address] [id number] [place] [address]- 7491 Apr, [facility] [place] [facility] [address] [id number] [place] [address]- 1006 Apr, [facility] [place] [facility] [address] [id number] [place] [address]- 3141 Apr, [facility] [place] [facility] [address] [id number] [place] [address]- 3311 Apr, [facility] [place] [facility] [address] [id number] [place] [address]- 6923 Apr, [facility] [place] [facility] [address] [id number] [place] [address]- 2904 Apr, [facility] [place] [facility] [address] [id number] [place] [address]- 4827 Apr, [facility] [place] [facility] [address] [id number] [place] [address]- 1734 March, [facility] [place] [facility] [address] [id number] [place] [address]- 4685 March, [facility] [place] [facility] [address] [id number] [place] [address]- 6403 March, [facility] [place] [facility] [address] [id number] [place] [address]- 5874 March, [facility] [place] [facility] [address] [id number] [place] [address]- 7098 March, [facility] [place] [facility] [address] [id number] [place] [address]- 5205 March, [facility] [place] [facility] [address] [id number] [place] [address]- 3649 March, [facility] [place] [facility] [address] [id number] [place] [address]- 4142 March, [facility] [place] [facility] [address] [id number] [place] [address]- 9997 March, [facility] [address] [id number] [place] [address] 1934 March, [facility] [address] [id number] [place] [address]- 1999 March, [facility] [address] [id number] [place] [address]- 4300 March, [facility] [address] [id number] [place] [address]- 0080 March, [facility] [address] [id number] [place] [address]- 9511 March, [facility] [address] [id number] [place] [address]- 5445 March, [facility] [address] [id number] [place] [address]- 4773 March, [facility] [address] [id number] [place] [address]- 4867 March, [facility] [address] [id number] [place] [address]- 1370 March, [facility] [address] [id number] [place] [address]- 8670 March, [facility] [address] [id number] [place] [address]- 6695 March, [facility] [address] [id number] [place] [address]- 0951 Feb, [facility] [place] [facility] [address] [id number] [place] [address]- 4376 Feb, [facility] [address] [id number] [place] [address]- 3444 Feb, [facility] [address] [id number] [place] [address]- 9222 Feb, [facility] [place] [facility] [address] [id number] [place] [address]- 1792 Feb, [facility] [place] [facility] [address] [id number] [place] [address]- 7313 Feb, [facility] [place] [facility] [address] [id number] [place] [address]- 5489 Feb, [facility] [place] [facility] [address] [id number] [place] [address]- 6831 Feb, [facility] [place] [facility] [address] [id number] [place] [address]- 7305 Jan, [facility] [place] [facility] [address] [id number] [place] [address]- 5649 Jan, [facility] [place] [facility] [address] [id number] [place] [address]- 7905 Jan, [facility] [place] [facility] [address] [id number] [place] [address]- 3174 Jan, [facility] [place] [facility] [address] [id number] [place] [address]- 7657 Jan, [facility] [place] [facility] [address] [id number] [place] [address]- 7958 Jan, [facility] [place] [facility] [address] [id number] [place] [address]- 0611 Jan, [facility] [place] [facility] [address] [id number] [place] [address]- 9344 Jan, [facility] [place] [facility] [address] [id number] [place] [address]- 5098 Jan, [facility] [place] [facility] [address] [id number] [place] [address] Jan, [facility] [place] [facility] [address] [id number] [place] 1989 Dec, [facility] [place] [facility] [address] [id number] [place] [address]- 7941 Dec, [facility] [place] [facility] [address] [id number] [place] [address]- 9476 Dec, [facility] [place] [facility] [address] [id number] [place] [address]- 2486 Dec, [facility] [place] [facility] [address] [id number] [place] [address]- 6076 Dec, [facility] [place] [facility] [address] [id number] [place] [address]- 2544 Dec, [facility] [place] [facility] [address] [id number] [place] [address]- 8676 Dec, [facility] [place] [facility] [address] [id number] [place] [address]- 7032 Dec, [facility] [place] [facility] [address] [id number] [place] [address]- 2947 Nov, [facility] [place] [facility] [address] [id number] [place] [address]- 7085 Nov, [facility] [place] [facility] [address] [id number] [place] [address]- 4441 Nov, [facility] [place] [facility] [address] [id number] [place] [address]- 2153 Nov, [facility] [place] [facility] [address] [id number] [place] [address]- 0954 Nov, [facility] [place] [facility] [address] [id number] [place] [address]- 4084 Nov, [facility] [place] [facility] [address] [id number] [place] [address]- 2616 Nov, [facility] [place] [facility] [address] [id number] [place] [address]- 8984 Nov, [facility] [place] [facility] [address] [id number] [place] [address]- 9484 Nov, [facility] [address] [id number] [place] [address]- 9698 Nov, [facility] [place] [facility] [address] [id number] [place] [address]- 2671 Nov, [facility] [place] [facility] [address] [id number] [place] [address]- 4336 Nov, [facility] [place] [facility] [address] [id number] [place] [address]- 3273 Nov, [facility] [address] [id number] [place] [address]- 3403 Oct, [facility] [place] [facility] [address] [id number] [place] [address]- 0759 Oct, [facility] [place] [facility] [address] [id number] [place] [address]- 4574 Oct, [facility] [place] [facility] [address] [id number] [place] [address]- 3326 Oct, [facility] [place] [facility] [address] [id number] [place] [address]- 9472 Oct, [facility] [place] [facility] [address] [id number] [place] [address]- 1419 Oct, [facility] [place] [facility] [address] [id number] [place] [address]- 0697 Oct, [facility] [place] [facility] [address] [id number], [place] [address]- 1332 18 Oct, 2013 [facility] [place] [facility] [address] [id number] [place] [address]- 8303 17 Oct, 2013 [facility] [place] [facility] [address] [id number] [place] 1701 Oct, [facility] [place] [facility] [address] [id number], [place] [address]- 5076 Oct, [facility] [place] [facility] [address] [id number], [place] [address]- 4118 Oct, [facility] [place] [facility] [address] [id number] [place] [address]- 0254 Oct, [facility] [place] [facility] [address] [facility] [id number], [place] [address]- 6908 Oct, [facility] [place] [facility] [address] [facility] [id number] [place] [address]- 4409 Sep, [facility] [place] [facility] [address] [id number], [place] [address]- 9565 Sep, [facility] [place] [facility] [address] [facility] [id number] [place] [address], [place] [address]- 2545 Sep, [facility] [place] [facility] [address] [facility] [id number], [place] [address]- 5438 Sep, [facility] [id number], [place] [address]- 9066 Sep, [facility] [place] [facility] [address] [facility] [id number], [place] [address]- 3164 Sep, [facility] [place] [facility] [address] [id number], [place] [address]- 6086 Sep, [facility] [place] [facility] [address] [id number], [place] [address]- 8446 Sep, [facility] [place] [facility] [address] [facility] [id number], [place] [address]- 5605 Sep, [facility] [place] [facility] [address] [facility] [id number], [place] [address]- 0537 Sep, [facility] [place] [facility] [address] [id number], [place] [address]- 6614 Aug, [facility] [place] [facility] [address] [facility] [id number], [place] [address]- 8395 Aug, [facility] [place] [facility] [address] [id number], [place] [address]- 3187 Aug, [facility] [place] [facility] [address] [id number] [place] [address]- 8727 24 Aug, 2012 [facility] [place] [facility] [address] [id number] [place] [address]- 6039 23 Aug, 2012 [facility] [place] [facility] [address] [id number] [place] [address]- 0956 23 Aug, 2012 [facility] [place] [facility] [address] [id number] [place] [address]- 0156 23 Aug, 2012 [facility] [place] [facility] [address] [id number] [place] [address]- 6669 23 Aug, 2012 [facility] [place] [facility] [address] [id number] [place] [address]- 2564 Aug, 2012 [facility] [place] [facility] [address] [id number] [place] [address]- 8455 Aug, 2012 [facility] [place] [facility] [address] [id number] [place] [address]- 9225 18 Aug, 2012 [facility] [place] [facility] [address] [id number] [place] [address]- 3273 18 Aug, 2012 [facility] [place] [facility] [address] [id number] [place] [address]- 6622 18 Aug, 2012 [facility] [place] [facility] [address] [id number] [place] [address]- 0891 18 Aug, 2012 [facility] [place] [facility] [address] [id number] [place] [address]- 0107 17 Aug, 2012 [facility] [place] [facility] [address] [id number] [place] [address]- 2030 14 Aug, 2013 [facility] [place] [facility] [address] [id number] [place] [address]- 1627 14 Aug, 2013 [facility] [place] [facility] [address] [id number] [place]158 Aug, [facility] [place] [facility] [address] [id number] [place] [address]- 1354 20 Jul, 2013 [facility] [place] [facility] [address] [id number] [place] [address]- 7016 19 Jul, 2013 [facility] [place] [facility] [address] [id number] [place] [address]- 3656 18 Jul, 2013 [facility] [place] [facility] [address] [id number] [place] [address]- 0010 Jul, [facility] [place] [facility] [address] [id number] [place] [address]- 4906 Jul, [facility] [place] [facility] [address] [id number] [place] [address]- 5039 Jun, [facility] [place] [facility] [address] [id number] [place] [address]- 1614 Jun, [facility] [place] [facility] [address] [id number] [place] [address]- 8160 Jun, [facility] [place] [facility] [address] [id number] [place] [address]- 7343 15 Jun, 2013 [facility] [place] [facility] [address] [id number] [place] [address]- 7091 Jun, [facility] [place] [facility] [address] [id number] [place] [address]- 3800 Jun, [facility] [place] [facility] [address] [id number] [place] [address]- 3769 Jun, [facility] [place] [facility] [address] [id number] [place] [address]- 4826 Jun, [facility] [place] [facility] [address] [id number] [place] [address]- 4603 Jun, [facility] [place] [facility] [address] [id number] [place] [address]- 8474 Jun, [facility] [place] [facility] [address] [id number] [place] [address]- 7945 May, [facility] [place] [facility] [address] [id number] [place] [address]- 1508 May, [facility] [address] [id number] [place] [address]- 2865 May, [facility] [place] [facility] [address] [id number] [place] [address]- 3676 May, [facility] [address] [id number] [place] [address]- 4068 May, [facility] [place] [facility] [address] [id number] [place] [address]- 5034 May, [facility] [place] [facility] [address] [id number] [place] [address]- 7209 May, [facility] [place] [facility] [address] [id number] [place] [address]- 9337 May, [facility] [address] [id number] [place] [address]- 8747 May, [facility] [place] [facility] [address] [id number] [place] [address]- 4901 Apr, [facility] [place] [facility] [address] [id number] [place] [address]- 2201 Apr, [facility] [place] [facility] [address] [id number] [place] [address]- 4423 Apr, [facility] [place] [facility] [address] [id number] [place] [address]- 1934 Apr, [facility] [place] [facility] [address] [id number] [place] [address]- 7073 Apr, [facility] [place] [facility] [address] [id number] [place] [address]- 3549 Apr, [facility] [place] [facility] [address] [id number] [place] [address]- 6609 Apr, [facility] [place] [facility] [address] [id number] [place] [address]- 1841 March, [facility] [place] [facility] [address] [id number] [place] [address]- 7738 Feb, [facility] [address] [id number] [place] [address]- 8374 Feb, [facility] [address] [id number] [place] [address]- 5225 Feb, [facility] [address] [id number] [place] [address]- 6288 Jan, [facility] [address] [id number] [place] [address]- 2990 Jan, [facility] [address] [id number] [place] [address]- 2086 Jan, [facility] [address] [id number] [place] [address]- 8001 Jan, [facility] [address] [id number] [place] [address]- 1348 Jan, [facility] [address] [id number] [place] [address]- 7972 Jan, [facility] [address] [id number] [place] [address]- 3133 Jan, [facility] [address] [id number] [place] [address]- 4487 Jan, [facility] [address] [id number] [place] [address]- 3138 Dec, [facility] [place] [facility] [address] [id number] [place] [address]- 9659 Dec, [facility] [place] [facility] [address] [id number] [place] [address]- 1146 Dec, [facility] [place] [facility] [address] [id number] [place] [address] Dec, [facility] [place] [facility] [address] [id number] [place] [address] 07 Dec, 2012 [facility] [address] [id number] [place] [address] 3973 06 Dec, 2012 [facility] [address] [id number] [place] [address] 05 Dec, 2012 [facility] [address] [id number] [place] [address] 31 Nov, 2012 [facility] [address] [id number] [place] [address]140 24 Nov, 2012 [facility] [address] [id number] [place] [address]44 18 Nov, 2012 [facility] [address] [id number] [place] [address] 8621 15 Nov, 2012 [facility] [address] [id number] [place] [address] Nov, [facility] [address] [id number] [place] [address]107 10 Nov, 2012 [facility] [address] [id number] [place] [address] 134[address] Nov, [facility] [address] [id number] [place] [address] Oct, [facility] [address] [id number] [place] [address] 31 Oct, 2012 [facility] [address] [id number] [place] [address]078 Oct, [facility] [address] [id number] [place] [address] 3540 Oct, [facility] [address] [id number] [place] [address] 37[address] Oct, [facility] [address] [id number] [place] [address]500 17 Oct, 2012 [facility] [place] [facility] [address] [id number] [place] [address] 2877 Oct, [facility] [place] [facility] [address] [id number] [place] [address] 1662 Oct, [facility] [place] [facility] [address] [id number] [place] [address] 5925 Oct, [facility] [place] [facility] [address] [id number] [place] [address] 2280 Oct, [facility] [place] [facility] [address] [id number] [place] [address] 8382 Oct, [facility] [place] [facility] [address] [id number] [place] [address]479 Oct, [facility] [place] [facility] [address] [id number] [place] [address] 5669 Sep, [facility] [place] [facility] [address] [id number] [place] [address]238 Sep, [facility] [place] [facility] [address] [id number] [place] [address]774 Sep, [facility] [place] [facility] [address] [id number] [place] [address] 2901 Sep, [facility] [place] [facility] [address] [id number] [place] [address] 0872 Sep, [facility] [place] [facility] [address] [id number] [place] [address] 1833 Sep, [facility] [place] [facility] [address] [id number] [place] [address] 8083 Sep, [facility] [place] [facility] [address] [id number] [place] [address] 9569 Sep, [facility] [place] [facility] [address] [id number] [place] [address] 1718 Sep, [facility] [place] [facility] [address] [id number], [place] [address] Sep, [facility] [place] [facility] [address] [id number] [place] [address] 2181 Sep, [facility] [place] [facility] [address] [id number] [place] [address] 3818 Aug, [facility] [place] [facility] [address] [id number] [place] [address] 6546 Aug, [facility] [place] [facility] [address] [id number] [place] [address] 4462 Aug, [facility] [place] [facility] [address] [id number] [place] [address] 3719 Aug, [facility] [place] [facility] [address] [id number] [place] [address] Aug, [facility] [place] [facility] [address] [id number] [place] [address] 6673 Aug, [facility] [place] [facility] [address] [id number] [place] [address] 8544 Aug, [facility] [place] [facility] [address] [id number] [place] [address] 8388 Aug, [facility] [place] [facility] [address] [id number] [place] [address] 9833 Aug, [facility] [place] [facility] [address] [id number], [place] [address] Aug, [facility] [place] [facility] [address] [id number], [place] [address]- [address] 22 Jul, 2012 [facility] [place] [facility] [address] [id number] [place] [address]- [address]87 20 Jul, 2012 [facility] [place] [facility] [address] [facility] [id number] [place] [address]139 10 Jul, 2012 [facility] [place] [facility] [address] [facility] [id number] [place] [address]- 0616 06 Jul, 2012 [facility] [place] [facility] [address] [id number] [place] [address]- [address]75 30 Jun, 2012 [facility] [place] [facility] [address] [id number] [place] [address] 4752 Jun, [facility] [place] [facility] [address] [id number] [place] [address] 4806 Jun, [facility] [place] [facility] [address] [id number] [place] [address]75 Jun, [facility] [place] [facility] [address] [id number] [place] [address] 4037 Jun, [facility] [place] [facility] [address] [id number] [place] [address]- [address]126 Jun, [facility] [place] [facility] [address] [id number] [place] [address] 4407 Jun, [facility] [place] [facility] [address] [id number] [place] [address] May, [facility] [place] [facility] [address] [id number] [place] [address] 7522 May, [facility] [place] [facility] [address] [id number] [place] [address]- 2413 May, [facility] [place] [facility] [address] [id number] [place] [address] 0794 May, [facility] [place] [facility] [address] [id number] [place] [address]- 4527 May, [facility] [place] [facility] [address] [id number] [place] [address]- 8123 Apr, [facility] [place] [facility] [address] [id number] [place] [address]- 2483 Apr, [facility] [place] [facility] [address] [id number] [place] [address] 1055 13 Apr, 2012 [facility] [place] [facility] [address] [id number] [place] [address]- 3820 Apr, [facility] [address] [id number] [place] [address] Apr, [facility] [place] [facility] [address] [id number] [place] [address] March, [facility] [place] [facility] [address] [id number] [place] [address] March, [facility] [place] [facility] [address] [id number] [place] [address] March, [facility] [address] [id number] [place] [address] March, [facility] [place] [facility] [address] [id number] [place] [address] March, [facility] [place] [facility] [address] [id number] [place] [address] March, [facility] [address] [id number] [place] [address] March, [facility] [place] [facility] [address] [id number] [place] [address] March, [facility] [place] [facility] [address] [id number] [place] [address] March, [facility] [place] [facility] [address] [id number] [place] [address] March, [facility] [place] [facility] [address] [id number] [place] [address] Feb, [facility] [place] [facility] [address] [id number] [place] [address] Feb, [facility] [place] [facility] [address] [id number] [place] [address] Feb, [facility] [place] [facility] [address] [id number] [place] [address] Feb, [facility] [place] [facility] [address] [id number] [place] [address] Feb, [facility] [address] [id number] [place] [address] Feb, [facility] [place] [facility] [address] [id number] [place] [address] Feb, [facility] [address] [id number] [place] [address] Feb, [facility] [address] [id number] [place] [address] Feb, [facility] [address] [id number] [place] [address] Jan, [facility] [address] [id number] [place] [address] Jan, [facility] [address] [facility] [id number] [place] [address] Jan, [facility] [place] [facility] [address] [id number] [place] [address] Jan, [facility] [address] [id number] [place] [address] Dec, [facility] [address] [facility] [id number] [place] [address] Dec, [facility] [address] [id number] [place] [address] Nov, [facility] [place] [facility] [address] [id number] [place] [address] Nov, [facility] [place] [facility] [address] [id number] [place] [address] Nov, [facility] [place] [facility] [address] [id number] [place] [address] Nov, [facility] [place] [facility] [address] [facility] [id number] [place] [address] Nov, [facility] [place] [facility] [address] [facility] [id number], [place] [address] 30 Oct, 2010 [facility] [address] [facility] [id number], [place] [address] 23 Oct, 2011 [facility] [address] [facility] [id number], [place] [address] Oct, 2010 [facility] [id number], [place] [address] Oct, [facility] [address] [facility] [id number], [place] [address] Oct, 2010 [facility] [id number], [place] [address] Oct, [facility] [id number], [place] [address] Oct, [facility] [id number], [place] [address] Oct, [facility] [address] [id number], [place] [address] Sep, IMMUNIZATIONS No Known Immunizations SOCIAL HISTORY Never Assessed REASON FOR VISIT Requests return call PLAN OF CARE VITAL SIGNS MEDICATIONS Unknown Medications RESULTS No Results PROCEDURES No Known procedures INSTRUCTIONS MEDICATIONS ADMINISTERED No Known Medications MEDICAL (GENERAL) HISTORY Type Description Date 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
--- OUTSIDE RECORDS SUMMARY | 2018-09-04 11:25 | XMS REPORT ---
Author Author SHAHNAZ MARQUEZ [facility] Address [address] [place] [address] Care Team Providers Care Commercial Singer Name Role Phone SHAHNAZ MARQUEZ Unavailable PROBLEMS Type Condition ICD9-CM Code TCP29-IB Code Onset Dates Condition Status SNOMED Code Problem Type 2 diabetes mellitus without complication, without long-term current use of insulin E11.9 Active 297187698 Problem Reactive depression F32.9 Active 12338955 Problem Ventral hernia without obstruction or gangrene K43.9 Active 829354093 Problem 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 Active 81813791 Problem Paroxysmal atrial fibrillation I48.0 Active 787353494 Problem Anxiety F41.9 Active 73115834 Problem Pharyngeal dysphagia R13.13 Active 25201173058546 Problem Insomnia G47.00 Active 410225705 Problem Peripheral vascular disease I73.9 Active 555934763 Problem Coronary artery disease I25.10 Active 51565658 Problem Hyperlipidemia E78.5 Active 19428490 Problem Other chronic pain G89.29 Active 39771276 Problem Hypertension I10 Active 15970139 Problem Low back pain M54.5 Active 622944371 ALLERGIES No Information ENCOUNTERS Encounter Location Date Diagnosis [facility] [id number] [address] 20 Jul, 2018 [facility] [employer] [address] [place] [id number] 17 Jul, 2018 [facility] [id number] [address] 11 Jul, 2018 Other chronic pain G89.29 [facility] [id number] [address] 9[address] Jul, [facility] [id number] [address] Jul, [facility] [employer] [address] [place] [id number] Jun, 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 [address] [id number] [place] [address] 43572- 3976 Jun, Other chronic pain G89.29 [address] [address] [facility] [id number] [address] Jun, [facility] [employer] [address] [place] [id number] May, Anxiety F41.9 ; Type 2 diabetes mellitus without complication, without long-term current use of insulin E11.9 ; Hypertension I10 ; Low back pain M54.5 ; Paroxysmal atrial fibrillation I48.0 and 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 [address] [address] [facility] [id number] [address] May, Other chronic pain G89.29 [facility] [employer] [address] [place] [id number] May, Low back pain M54.5 [place] [address] [id number] [place] [address] 84258- 1035 May, [address] [address] [facility] [id number] [place] [address] 45012- 7859 Apr, Other chronic pain G89.29 [address] [place] [address] [facility] [id number] [place] [address] 04833- 9702 Apr, [place] [address] [facility] [id number] [place] [address] 94241- 5454 Apr, [facility] [employer] [address] [place] [id number] Apr, Closed compression fracture of L3 lumbar vertebra with routine healing, subsequent encounter S32.030D [facility] [employer] [address] [place] [id number] Apr, Low back pain M54.5 [facility] [employer] [address] [place] [id number] Apr, Coccydynia M53.3 [place] [id number] [address] March, [facility] [address] [address] March, Other chronic pain G89.29 [facility] [id number] [address] 9101 March, [facility] [address] [address] 6[address] March, [facility] [id number] [address] 2707 Feb, [facility] [address] [address] 7098 Feb, Other chronic pain G89.29 Via [facility] [facility] [address] [place] [id number] Feb, Other chronic pain G89.29 and Anxiety F41.9 [facility] [address] [address] Feb, [facility] [address] [address] 86[address] Jan, [facility] [id number] [address] 5[address] Jan, [facility] [id number] [address] 43[address] Jan, [facility] [id number] [address] 7201 Jan, [facility] [id number] [address] 16[address] Dec, [facility] [employer] [address] [place] [id number] Dec, Peripheral vascular disease I73.9 ; 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 ; Other chronic pain G89.29 ; Anxiety F41.9 ; Reactive depression F32.9 ; Insomnia G47.00 and Type 2 diabetes mellitus without complication, without long-term current use of insulin E11.9 [facility] ADRIENNE SANCHEZ [id number] [place] [address] Nov [facility] [id number] [id number] Nov, Anxiety F41.9 [facility] [address]005[address] [address] 2[address] Nov, [facility] [id number] [place] [address] [id number] Nov, Anxiety F41.9 [facility] [employer] [address] [place] [id number] Nov, Status post surgery Z98.890 ; Confused R41.0 ; Anxiety F41.9 and Other chronic pain G89.29 [facility] [id number] [id number] Nov, Other chronic pain G89.29 [facility] [address] [place] [address]96809- 0401 Oct, [facility] [id number] [place] [address] [id number] Oct, Other chronic pain G89.29 [facility] [id number] [address] Oct, Anxiety F41.9 [facility] [id number] [place] [address] [id number] Sep, Other chronic pain G89.29 [facility] [id number] [id number] Sep, [facility] [employer] [address] [place] [id number] Aug, Dysuria R30.0 and Anxiety F41.9 [facility] [id number] [address] Aug, [facility] [address] [id number] [id number] Aug, Other chronic pain G89.29 [facility] [id number] [address] Jul, Other chronic pain G89.29 [facility] [id number] [id number] Jun, [facility] [id number] [place] [address] [id number] Jun, Other chronic pain G89.29 [facility] [address] [address] 1548 Jun, [facility] [address] [place] [address] [id number]- 3276 May, Other chronic pain G89.29 [facility] [address] [address] Apr, Other chronic pain G89.29 [facility] [employer] [address] [id number] Apr, Reactive depression F32.9 and Pharyngeal dysphagia R13.13 [facility] [address] [place] [address] 48617- 7615 Apr, Urinary tract infection without hematuria, site unspecified N39.0 [facility] [id number] [address] 5[address] March, Other chronic pain G89.29 [facility] [id number] [address] 8422 Feb, Other chronic pain G89.29 [facility] [id number] [address]- 7448 Feb, [facility] [id number] [place] [address] [id number] Feb, [facility] [employer] [address] [place] [id number] Feb, Dysuria R30.0 and Ventral hernia without obstruction or gangrene K43.9 [facility] [address] [address]- 1708 Jan, Other chronic pain G89.29 [facility] [id number] [place] [address] [id number] Dec, Other chronic pain G89.29 [facility] [address] [place] [address] 48983- 4573 Nov, Other chronic pain G89.29 [facility] [address] [place] [id number] Nov, Lymphadenitis I88.9 [facility] [id number] [place] [address] 09042- 3488 Nov, Other chronic pain G89.29 [facility] [id number] [place] [address] 48136- 9909 Nov, [facility] [id number] [place] [address] [id number] Nov, Other chronic pain G89.29 Via [facility] [address] [place] [id number] Oct, Low back pain M54.5 ; Hypertension I10 and Type 2 diabetes mellitus without complication, without long-term current use of insulin E11.9 [facility] [address] [address]- 2476 Oct, [facility] [address] [place] [address] 33612- 4395 Oct, [facility] [address] [place] [address] 02400- 3812 Oct, [facility] [id number] [place] [address] 88939- 0143 Oct, [facility] [address] [place] [address] 40724- 2339 Sep, [facility] [id number] [place] [address] 11498- 0318 Sep, [facility] [address] [facility] [id number] [address]- 9169 Aug, Other chronic pain G89.29 [facility] [address] [facility] [id number] [address]- 5287 Jul, [facility] [address] [place] [address] 21714- 6105 Jul, [facility] [address] [place] [address] 33324- 0099 Jul, [facility] [id number] [place] [address] 36567- 2206 Jun, [facility] [id number] [place] [address] 60145- 1913 Jun, [facility] [address] [place] [id number] Jun, Low back pain M54.5 ; Other chronic pain G89.29 and Coronary artery disease I25.10 [facility] [address] [address]- 8554 Jun, [facility] [address] [place] [address] 65337- 2900 May, [facility] [address] [address]- 0503 May, [facility] [address] [address]- 9246 May, Other chronic pain G89.29 [facility] [address] [facility] [id number] [place] [address]- 0145 May, [facility] [address] [place] [address] 79683- 2709 Apr, [facility] [address] [address]- 8489 Apr, Acute cystitis without hematuria N30.00 [facility] [address] [address]- 3624 16 Apr, 2016 Acute cystitis without hematuria N30.00 ; Coronary artery disease I25.10 ; Low back pain M54.5 and Other chronic pain G89.29 [facility] [address] [address]- 4676 13 Apr, 2016 Other chronic pain G89.29 [facility] [id number] [place] [address] 97993- 0518 March, Other chronic pain G89.29 [facility] [id number] [place] [address] 11158- 7196 18 Feb, 2016 [facility] [id number] [place] [address] 78046- 6308 15 Feb, 2016 Arthritis M19.90 [facility] [id number] [place] [address] 87163- 9264 Feb, [facility] [id number] [place] [address] 82029- 3606 Jan, [facility] [id number] [place] [address] 44163- 7798 Jan, [facility] [id number] [address]- 9293 Jan, Other chronic pain G89.29 [facility] [id number] [place] [address] 40401 2547 Jan, Hypertension I10 ; Coronary artery disease I25.10 and Insomnia G47.00 [facility] [address] [address]- 5386 Jan, [facility] [id number] [place] [address] 37698- 6543 Dec, Right hip pain M25.551 [facility] [id number] [address]- 3006 Dec, [facility] [address] [address]- 7794 Dec, [facility] [address] [address]- 5616 Dec, [facility] [address] [address]- 5006 Dec, Other chronic pain G89.29 [facility] [id number] [place] [address] 50181- 6375 Dec, [facility] [address] [address]- 5182 Nov, [facility] [address] [place] [address] 72604- 1974 Nov, Other chronic pain G89.29 [facility] [address] [place] [address] 55848- 2992 Nov, Right hip pain M25.551 and Coronary artery disease I25.10 [facility] [address] [address]- 9314 Nov, Other chronic pain G89.29 [facility] [address] [address]- 9154 Oct, [facility] [address] [address]- 4178 Oct, [facility] [address] [address]- 0126 Sep, [facility] [address] [address]- 7492 Sep, [facility] [address] [address]- 0201 Aug, [facility] [address] [address]- 8585 Aug, Hypertension I10 ; Coronary artery disease I25.10 and Arthritis M19.90 [facility] [address] [id number] [place] [address]- 9909 Jun, [facility] [address] [id number] [place] [address]- 5137 Jun, Essential hypertension, benign 401.1 ; Other chronic pain 338.29 and Chronic airway obstruction, not elsewhere classified 496 [facility] [address] [id number] [place] [address]- 5782 Jun, [facility] [address] [id number] [place] [address]- 6467 Jun, [facility] [address] [facility] [id number] [place] [address]- 6930 Jun, [facility] [address] [facility] [id number] [place] [address]- 2818 May, [facility] [id number] [place] [address]- 1284 May, [facility] [address] [facility] [id number] [place] [address]- 9460 Apr, [facility] [address] [facility] [id number] [place] [address]- 8295 Apr, [facility] [id number] [place] [address]- 3506 Apr, [facility] [address] [facility] [id number] [place] [address]- 8552 March, [facility] [address] [facility] [id number] [place] [address]- 1416 March, [facility] [address] [facility] [id number] [place] [id number]- 8022 March, [facility] [address] [facility] [id number] [place] 9378 March, [facility] [address] [facility] [id number] [place] [address]- 7604 March, Sialadenitis 527.2 [facility] [address] [id number] [place] [address]- 4566 Feb, [facility] [address] [facility] [id number] [place] [address]- 3297 Feb, [facility] [address] [facility] [id number] [place] [address]- 6597 Feb, [facility] [address] [facility] [id number] [place] [address]- 9904 Feb, [facility] [address] [facility] [id number] [place] [address]- 8474 Feb, [facility] [address] [facility] [id number] [place] [address]- 3544 Jan, [facility] [id number] [place] [address]- 8425 Jan, [facility] [address] [facility] [id number] [place] [address]- 7641 Jan, [facility] [address] [facility] [id number] [place] [address]- 7769 Jan, [facility] [address] [facility] [id number] [place] [address]- 0789 Jan, [facility] [address] [facility] [id number] [place] [address]- 1464 Jan, [facility] [address] [facility] [id number] [place] [address]- 5033 Dec, [facility] [address] [facility] [id number] [place] 5719 Dec, [facility] [address] [facility] [id number] [place] [address]- 3293 Dec, [facility] [address] [facility] [id number] [place] [address]- 0648 Dec, [facility] [place] [facility] [address] [id number] [place] [address]- 4153 Dec, [facility] [place] [facility] [address] [id number] [place] [address]- 8703 Dec, [facility] [place] [facility] [address] [id number] [place] [address]- 8011 Nov, [facility] [place] [facility] [address] [id number] [place] [address]- 9354 Nov, [facility] [place] [facility] [address] [id number] [place] [address]- 0258 Nov, [facility] [place] [facility] [address] [id number] [place] [address]- 2750 Nov, [facility] [place] [facility] [address] [id number] [place] [address]- 5467 Nov, [facility] [place] [facility] [address] [id number] [place] [address]- 3796 Nov, [facility] [place] [facility] [address] [id number] [place] [address]- 5182 Nov, [facility] [place] [facility] [address] [id number] [place] [address]- 1883 Nov, [facility] [place] [facility] [address] [id number] [place] [address]- 6512 Nov, [facility] [place] [facility] [address] [id number] [place] [address]- 8568 Nov, [facility] [place] [facility] [address] [id number] [place] [address]- 0798 Nov, [facility] [place] [facility] [address] [id number] [place] [address]- 4402 Nov, [facility] [place] [facility] [address] [id number] [place] [address]- 0091 Nov, [facility] [place] [facility] [address] [id number] [place] [address]- 7544 Nov, [facility] [place] [facility] [address] [id number] [place] [address]- 9814 Oct, [facility] [place] [facility] [address] [id number] [place] 2165 Oct, [facility] [place] [facility] [address] [id number] [place] [address]- 7209 Oct, [facility] [place] [facility] [address] [id number] [place] [address]- 1906 Oct, [facility] [place] [facility] [address] [id number] [place] [address] Oct, [facility] [place] [facility] [address] [id number] [place] [address] Oct, [facility] [place] [facility] [address] [id number] [place] [address] Oct, [facility] [place] [facility] [address] [id number] [place] [address] Oct, [facility] [place] [facility] [address] [id number] [place] [address] Oct, [facility] [place] [facility] [address] [id number] [place] [address] Sep, [facility] [place] [facility] [address] [id number] [place] [address] Sep, [facility] [place] [facility] [address] [id number] [place] [address] Sep, [facility] [place] [facility] [address] [id number] [place] [address] Sep, [facility] [place] [facility] [address] [id number] [place] [address] Sep, [facility] [place] [facility] [address] [id number] [place] [address] Sep, [facility] [place] [facility] [address] [id number] [place] [address] Sep, [facility] [place] [facility] [address] [id number] [place] [address] Sep, [facility] [place] [facility] [address] [id number] [place] [address] Sep, [facility] [place] [facility] [address] [id number] [place] [address] Sep, [facility] [place] [facility] [address] [id number] [place] [address] Sep, [facility] [place] [facility] [address] [id number] [place] [address] Sep, [facility] [place] [facility] [address] [id number] [place] [address] Aug, [facility] [place] [facility] [address] [id number] [place] [address] Aug, [facility] [place] [facility] [address] [id number] [place] [address] Aug, [facility] [place] [facility] [address] [id number] [place] [address] Aug, [facility] [place] [facility] [address] [id number] [place] [address]- 5784 Aug, [facility] [place] [facility] [address] [id number] [place] [address] 2406 Aug, [facility] [place] [facility] [address] [id number] [place] [address] Aug, [facility] [place] [facility] [address] [id number] [place] [address] Aug, [facility] [place] [facility] [address] [id number] [place] [address] 30 Jul, 2014 [facility] [place] [facility] [address] [id number] [place] [address] 30 Jul, 2014 [facility] [place] [facility] [address] [id number] [place] [address] 30 Jul, 2013 [facility] [place] [facility] [address] [id number] [place] [address] 30 Jul, 2013 [facility] [place] [facility] [address] [id number] [place] [address] 25 Jul, 2013 [facility] [place] [facility] [address] [id number] [place] [address]- [address] 25 Jul, 2013 [facility] [place] [facility] [address] [id number] [place] [address] 15 Jul, 2014 [facility] [place] [facility] [address] [id number] [place] [address] 15 Jul, 2014 [facility] [place] [facility] [address] [id number] [place] [address]- [address] Jul, [facility] [place] [facility] [address] [id number] [place] [address] Jul, [facility] [place] [facility] [address] [id number] [place] [address] Jun, [facility] [place] [facility] [address] [id number] [place] [address] Jun, [facility] [place] [facility] [address] [id number] [place] [address] Jun, [facility] [place] [facility] [address] [id number] [place] [address] 1056 Jun, [facility] [place] [facility] [address] [id number] [place] [address]- 7961 Jun, [facility] [place] [facility] [address] [id number] [place] [address]- 4868 Jun, [facility] [place] [facility] [address] [id number] [place] [address]- 9675 Jun, [facility] [place] [facility] [address] [id number] [place] [address]- 3364 Jun, [facility] [place] [facility] [address] [id number] [place] [address]- 4342 Jun, [facility] [place] [facility] [address] [id number] [place] [address]- 7152 Jun, [facility] [place] [facility] [address] [id number] [place] [address]- 2162 Jun, [facility] [place] [facility] [address] [id number] [place] [address]- 6889 Jun, [facility] [place] [facility] [address] [id number] [place] [address]- 8760 Jun, [facility] [place] [facility] [address] [id number] [place] [address]- 3355 Jun, [facility] [place] [facility] [address] [id number] [place] [address]- 3746 Jun, [facility] [place] [facility] [address] [id number] [place] [address]- 6374 Jun, [facility] [place] [facility] [address] [id number] [place] [address]- 0991 Jun, [facility] [place] [facility] [address] [id number] [place] [address]- 6147 Jun, [facility] [place] [facility] [address] [id number] [place] [address]- 9804 Jun, [facility] [place] [facility] [address] [id number] [place] [address]- 1183 Jun, [facility] [place] [facility] [address] [id number] [place] [address]- 8013 Jun, [facility] [place] [facility] [address] [id number] [place] [address]- 8896 Jun, [facility] [place] [facility] [address] [id number] [place] [address]- 1282 May, [facility] [place] [facility] [address] [id number] [place] [address]- 5794 May, [facility] [place] [facility] [address] [id number] [place] [address]- 9310 May, [facility] [place] [facility] [address] [id number] [place] [address]- 1863 May, [facility] [place] [facility] [address] [id number] [place] [address]- 6078 May, [facility] [place] [facility] [address] [id number] [place] [address]- 1388 May, [facility] [place] [facility] [address] [id number] [place] [address]- 8947 May, [facility] [place] [facility] [address] [id number] [place] [address]- 4521 May, [facility] [place] [facility] [address] [id number] [place] [address]- 5812 May, [facility] [place] [facility] [address] [id number] [place] [address]- 1436 May, [facility] [place] [facility] [address] [id number] [place] [address]- 8230 May, [facility] [place] [facility] [address] [id number] [place] [address]- 9210 May, [facility] [place] [facility] [address] [id number] [place] [address]- 9171 May, [facility] [place] [facility] [address] [id number] [place] [address]- 6253 Apr, [facility] [place] [facility] [address] [id number] [place] [address]- 6935 Apr, [facility] [place] [facility] [address] [id number] [place] [address]- 4290 Apr, [facility] [place] [facility] [address] [id number] [place] [address]- 1655 Apr, [facility] [place] [facility] [address] [id number] [place] [address]- 1816 Apr, [facility] [place] [facility] [address] [id number] [place] [address]- 9209 Apr, [facility] [place] [facility] [address] [id number] [place] [address]- 0923 Apr, [facility] [place] [facility] [address] [id number] [place] [address]- 8666 Apr, [facility] [place] [facility] [address] [id number] [place] [address]- 7484 Apr, [facility] [place] [facility] [address] [id number] [place] [address]- 6965 March, [facility] [place] [facility] [address] [id number] [place] [address]- 6957 March, [facility] [place] [facility] [address] [id number] [place] [address]- 5234 March, [facility] [place] [facility] [address] [id number] [place] [address]- 4489 March, [facility] [place] [facility] [address] [id number] [place] [address]- 1526 March, [facility] [place] [facility] [address] [id number] [place] [address]- 7349 March, [facility] [place] [facility] [address] [id number] [place] [address]- 7724 March, [facility] [place] [facility] [address] [id number] [place] [address]- 2179 March, [facility] [place] [facility] [address] [id number] [place] [address]- 4634 March, [facility] [place] [facility] [address] [id number] [place] [address]- 0337 March, [facility] [place] [facility] [address] [id number] [place] [address]- 7200 March, [facility] [place] [facility] [address] [id number] [place] [address]- 3460 March, [facility] [place] [facility] [address] [id number] [place] [address]- 9424 March, [facility] [place] [facility] [address] [id number] [place] [address] March, [facility] [place] [facility] [address] [id number] [place] [address]- 3484 March, [facility] [place] [facility] [address] [id number] [place] [address]- 5136 March, [facility] [place] [facility] [address] [id number] [place] [address]- 9642 March, [facility] [address] [id number] [place] [address]- 9610 March, [facility] [place] [facility] [address] [id number] [place] [address]- 9290 March, [facility] [place] [facility] [address] [id number] [place] [address]- 8550 March, [facility] [place] [facility] [address] [id number] [place] [address]- 5364 Feb, [facility] [place] [facility] [address] [id number] [place] [address]- 3811 Feb, [facility] [place] [facility] [address] [id number] [place] [address]- 2890 Feb, [facility] [place] [facility] [address] [id number] [place] [address]- 9835 Feb, [facility] [place] [facility] [address] [id number] [place] [address]- 3266 Feb, [facility] [place] [facility] [address] [id number] [place] [address] Feb, [facility] [place] [facility] [address] [id number] [place] [address]- 6748 Feb, [facility] [place] [facility] [address] [id number] [place] [address]- 1436 Feb, [facility] [place] [facility] [address] [id number] [place] [address]- 1325 Jan, [facility] [place] [facility] [address] [id number] [place] [address]- 9334 Jan, [facility] [place] [facility] [address] [id number] [place] [address]- 8484 Jan, [facility] [place] [facility] [address] [id number] [place] [address]- 5298 Jan, [facility] [place] [facility] [address] [id number] [place] [address]- 1711 Jan, [facility] [place] [facility] [address] [id number] [place] [address]- 8862 Jan, [facility] [place] [facility] [address] [id number] [place] [address]- 4552 Jan, [facility] [place] [facility] [address] [id number] [place] [address]- 3296 Jan, [facility] [place] [facility] [address] [id number] [place] [address]- 9716 Jan, [facility] [place] [facility] [address] [id number] [place] [address]- 6009 Jan, [facility] [place] [facility] [address] [id number] [place] [address]- 5524 Dec, [facility] [place] [facility] [address] [id number] [place] [address]- 0313 Dec, [facility] [place] [facility] [address] [id number] [place] [address]- 8474 Dec, [facility] [place] [facility] [address] [id number] [place] [address]- 2904 2013 [facility] [place] [facility] [address] [id number] [place] [address]- 9474 2013 [facility] [place] [facility] [address] [id number] [place] [address]- 8996 13 Dec, 2013 [facility] [place] [facility] [address] [id number] [place] [address]- 4866 Dec, [facility] [place] [facility] [address] [id number] [place] [address]- 0595 Dec, [facility] [place] [facility] [address] [id number] [place] [address]- 7567 Nov, [facility] [place] [facility] [address] [id number] [place] [address]- 1595 Nov, [facility] [place] [facility] [address] [id number] [place] [address]- 7983 Nov, [facility] [place] [facility] [address] [id number] [place] [address]- 1919 Nov, [facility] [place] [facility] [address] [id number] [place] [address]- 3250 Nov, [facility] [place] [facility] [address] [id number] [place] [address]- 6196 Nov, [facility] [place] [facility] [address] [id number] [place] [address]- 6214 Nov, [facility] [place] [facility] [address] [id number] [place] [address]- 5779 Nov, [facility] [place] [facility] [address] [id number] [place] [address]- 2656 Nov, [facility] [place] [facility] [address] [id number] [place] [address]- 7123 Nov, [facility] [place] [facility] [address] [id number] [place] [address]- 0202 Nov, [facility] [place] [facility] [address] [id number] [place] [address]- 8776 Nov, [facility] [address] [id number] [place] [address]- 5404 Nov, [facility] [address] [id number] [place] [address]- 7518 Oct, [facility] [address] [id number] [place] [address]- 4570 Oct, [facility] [address] [id number] [place] [address]- 3249 Oct, [facility] [address] [id number] [place] [address]- 9719 Oct, [facility] [address] [id number] [place] [address]- 3102 Oct, [facility] [address] [id number] [place] [address]- 3451 Oct, [facility] [address] [id number] [place] [address]- 7125 Oct, [facility] [address] [id number] [place] [address]- 8206 Oct, [facility] [address] [id number] [place] [address]- 9564 Oct, [facility] [address] [id number] [place] [address]- 4539 Oct, [facility] [address] [id number] [place] [address]- 2418 Oct, [facility] [place] [facility] [address] [id number] [place] [address]- 9504 Oct, [facility] [address] [id number] [place] [address]- 7750 Oct, [facility] [address] [id number] [place] [address]- 5774 Oct, [facility] [place] [facility] [address] [id number] [place] [address]- 3977 Sep, [facility] [place] [facility] [address] [id number] [place] [address]- 7422 Sep, [facility] [place] [facility] [address] [id number] [place] [address]- 9614 Sep, [facility] [place] [facility] [address] [id number] [place] [address]- 8214 Sep, [facility] [place] [facility] [address] [id number] [place] [address]- 7421 Sep, [facility] [place] [facility] [address] [id number] [place] [address]- 8044 Sep, [facility] [place] [facility] [address] [id number] [place] [address]- 1263 Sep, [facility] [place] [facility] [address] [id number] [place] [address]- 6145 Sep, [facility] [place] [facility] [address] [id number] [place] [address]- 8852 Sep, [facility] [place] [facility] [address] [id number] [place] [address]- 8084 Sep, [facility] [place] [facility] [address] [id number] [place] [address]- 8875 Aug, [facility] [place] [facility] [address] [id number] [place] [address]- 0630 Aug, [facility] [place] [facility] [address] [id number] [place] [address]- 5100 Aug, [facility] [place] [facility] [address] [id number] [place] [address]- 7480 Aug, [facility] [place] [facility] [address] [id number] [place] [address]- 7689 Aug, [facility] [place] [facility] [address] [id number] [place] [address]- 6457 23 Aug, 2012 [facility] [address] [id number] [place] [address]- 1308 23 Aug, 2012 [facility] [place] [facility] [address] [id number] [place] [address]- 2791 23 Aug, 2012 [facility] [address] [id number] [place] [address]- 7991 22 Aug, 2012 [facility] [place] [facility] [address] [id number] [place] [address]- 1316 22 Aug, 2012 [facility] [address] [id number] [place] [address]- 3733 18 Aug, 2012 [facility] [address] [id number] [place] [address]- 0100 18 Aug, 2012 [facility] [place] [facility] [address] [id number] [place] [address]- 2925 18 Aug, 2012 [facility] [address] [id number] [place] [address]- 1050 18 Aug, 2012 [facility] [place] [facility] [address] [id number] [place] [address]- 1581 17 Aug, 2012 [facility] [address] [id number] [place] [address]- 4155 14 Aug, 2013 [facility] [place] [facility] [address] [id number] [place] [address]- 8598 14 Aug, 2012 [facility] [place] [facility] [address] [id number] [place] [address]- 2659 Aug, 2012 [facility] [place] [facility] [address] [id number] [place] [address]- 4681 20 Jul, 2012 [facility] [place] [facility] [address] [id number] [place] [address]- 0495 19 Jul, 2012 [facility] [place] [facility] [address] [id number] [place] [address]- 6708 Jul, [facility] [place] [facility] [address] [id number] [place] [address]- 5784 Jul, [facility] [place] [facility] [address] [id number] [place] [address]- 8721 Jul, [facility] [place] [facility] [address] [id number] [place] [address]- 3054 Jun, [facility] [place] [facility] [address] [id number] [place] [address]- 3672 Jun, [facility] [place] [facility] [address] [id number] [place] [address]- 6966 Jun, [facility] [place] [facility] [address] [id number] [place] [address]- 6119 Jun, [facility] [place] [facility] [address] [id number] [place] [address]- 7698 Jun, [facility] [place] [facility] [address] [id number] [place] [address]- 7291 Jun, [facility] [place] [facility] [address] [id number] [place] [address]- 0410 Jun, [facility] [place] [facility] [address] [id number] [place] [address]- 4977 Jun, [facility] [place] [facility] [address] [id number] [place] [address]- 6069 Jun, [facility] [place] [facility] [address] [id number] [place] [address]- 3219 Jun, [facility] [place] [facility] [address] [id number] [place] [address]- 1136 May, [facility] [place] [facility] [address] [id number] [place] [address]- 6110 May, [facility] [place] [facility] [address] [id number] [place] [address]- 6266 May, [facility] [place] [facility] [address] [id number] [place] [address]- 0426 May, [facility] [address] [id number] [place] [address]- 1406 May, [facility] [place] [facility] [address] [id number] [place] [address]- 0535 May, [facility] [address] [id number] [place] [address]- 5045 May, [facility] [address] [id number] [place] [address]- 1778 May, [facility] [address] [id number] [place] [address]- 8951 May, [facility] [address] [id number] [place] [address]- 0635 Apr, [facility] [address] [id number] [place] [address]- 1194 Apr, [facility] [address] [id number] [place] [address]- 5553 Apr, [facility] [address] [id number] [place] [address]- 1200 Apr, [facility] [address] [id number] [place] [address]- 6139 Apr, [facility] [address] [id number] [place] [address]- 7069 Apr, [facility] [place] [facility] [address] [id number] [place] [address]- 4709 Apr, [facility] [place] [facility] [address] [id number] [place] [address]- 3898 March, [facility] [place] [facility] [address] [id number] [place] [address]- 7242 Feb, [facility] [place] [facility] [address] [id number] [place] [address]- 9363 Feb, [facility] [place] [facility] [address] [id number] [place] [address]- 9602 12 Feb, 2013 [facility] [place] [facility] [address] [id number] [place] 5767 28 Jan, 2013 [facility] [place] [facility] [address] [id number] [place] [address]- 6813 21 Jan, 2013 [facility] [place] [facility] [address] [id number] [place] [address]- 6484 19 Jan, 2013 [facility] [place] [facility] [address] [id number] [place] [address]- 3230 14 Jan, 2013 [facility] [place] [facility] [address] [id number] [place] [address]- 5574 12 Jan, 2013 [facility] [place] [facility] [address] [id number] [place] [address]- 5054 08 Jan, 2013 [facility] [place] [facility] [address] [id number] [place] [address]- 5897 07 Jan, 2013 [facility] [place] [facility] [address] [id number] [place] [address]- 4103 04 Jan, 2013 [facility] [place] [facility] [address] [id number] [place] [address]- 2581 28 Dec, 2012 [facility] [place] [facility] [address] [id number] [place] [address]- 8922 25 Dec, 2012 [facility] [place] [facility] [address] [id number] [place] [address]- 8853 13 Dec, 2012 [facility] [place] [facility] [address] [id number] [place] [address]- 3055 11 Dec, 2012 [facility] [place] [facility] [address] [id number] [place] 2338 07 Dec, 2012 [facility] [place] [facility] [address] [id number] [place] [address]- 7490 06 Dec, 2012 [facility] [place] [facility] [address] [id number] [address] 05 Dec, 2012 [facility] [address] [id number] [place] [address] Nov, [facility] [place] [facility] [address] [id number] [place] [address] 24 Nov, 2012 [facility] [address] [id number] [place] [address] 18 Nov, 2012 [facility] [address] [id number] [place] [address] 15 Nov, 2012 [facility] [address] [id number] [place] [address] Nov, [facility] [address] [id number] [place] [address] Nov, [facility] [address] [facility] [id number] [place] [address] Nov, [facility] [address] [id number] [place] [address] Oct, [facility] [address] [id number] [place] [address] Oct, [facility] [address] [facility] [id number] [place] [address] Oct, [facility] [address] [id number] [place] [address]34 Oct, [facility] [place] [facility] [address] [id number] [place] [address]472 Oct, [facility] [place] [facility] [address] [id number] [place] [address] 8651 Oct, [facility] [place] [facility] [address] [id number] [place] [address] 98[address] Oct, [facility] [place] [facility] [address] [facility] [id number] [place] [address] Oct, [facility] [place] [facility] [address] [id number] [place] [address]- [address] Oct, [facility] [place] [facility] [address] [id number] [place] [address] 9186 Oct, [facility] [place] [facility] [address] [id number] [place] [address] Oct, [facility] [place] [facility] [address] [id number] [place] [address] 7566 Oct, [facility] [place] [facility] [address] [id number] [place] [address] 30[address] Sep, [facility] [place] [facility] [address] [id number] [place] [address]- 9475 Sep, [facility] [place] [facility] [address] [id number] [place] [address]- 9292 Sep, [facility] [place] [facility] [address] [id number] [place] [address] 9340 Sep, [facility] [place] [facility] [address] [id number] [place] [address] 8521 Sep, [facility] [place] [facility] [address] [id number] [place] [address]151 Sep, [facility] [place] [facility] [address] [facility] [id number] [place] [address] Sep, [facility] [place] [facility] [address] [id number] [place] [address] 2854 Sep, [facility] [place] [facility] [address] [id number] [place] [address] 8674 Sep, [facility] [place] [facility] [address] [id number] [place] [address] 9154 Sep, [facility] [place] [facility] [address] [id number] [place] [address] 3140 Sep, [facility] [place] [facility] [address] [id number] [place] [address] 8801 Aug, [facility] [place] [facility] [address] [id number] [place] [address] 5635 Aug, [facility] [place] [facility] [address] [id number] [place] [address] 2563 Aug, [facility] [place] [facility] [address] [id number] [place] [address]- 9099 Aug, [facility] [place] [facility] [address] [id number] [place] [address] 7258 Aug, [facility] [place] [facility] [address] [id number] [place] [address] 5381 Aug, [facility] [place] [facility] [address] [id number] [place] [address]- 1131 Aug, [facility] [place] [facility] [address] [id number] [place] [address]- 4437 Aug, [facility] [place] [facility] [address] [id number] [place] [address]- 2483 Aug, [facility] [place] [facility] [address] [id number] [place] [address] 2972 Aug, [facility] [place] [facility] [address] [id number] [place] [address]- 4199 Jul, [facility] [place] [facility] [address] [id number] [place] [address] 20 Jul, 2012 [facility] [place] [facility] [address] [id number] [place] [address] 10 Jul, 2012 [facility] [place] [facility] [address] [id number] [place] [address]- 9952 06 Jul, 2012 [facility] [place] [facility] [address] [id number] [place] [address] 30 Jun, 2012 [facility] [place] [facility] [address] [id number] [place] [address]- 7958 Jun, [facility] [place] [facility] [address] [id number] [place] [address]- 0901 16 Jun, 2012 [facility] [place] [facility] [address] [id number] [place] [address]- 9295 Jun, [facility] [place] [facility] [address] [id number] [place] [address] 4106 Jun, [facility] [place] [facility] [address] [id number] [place] [address] Jun, [facility] [place] [facility] [address] [id number] [place] [address] 4928 Jun, [facility] [place] [facility] [address] [id number] [place] [address] 5603 May, [facility] [place] [facility] [address] [id number] [place] [address] May, [facility] [place] [facility] [address] [id number] [place] [address]- 2901 May, [facility] [place] [facility] [address] [id number] [place] [address]- 4987 May, [facility] [place] [facility] [address] [id number] [place] [address]- 1589 May, [facility] [place] [facility] [address] [id number] [place] [address] 3489 Apr, [facility] [place] [facility] [address] [id number] [place] [address]- 2982 Apr, [facility] [place] [facility] [address] [id number] [place] [address]- 8669 Apr, [facility] [place] [facility] [address] [id number] [place] [address]- 2940 Apr, [facility] [place] [facility] [address] [id number] [place] [address]- 1859 Apr, [facility] [place] [facility] [address] [id number] [place] [address] 2191 March, [facility] [place] [facility] [address] [id number] [place] [address]- 1144 March, [facility] [address] [id number] [place] [address]- 5271 March, [facility] [address] [id number] [place] [address]- 5636 March, [facility] [address] [id number] [place] [address]- 6339 March, [facility] [address] [id number] [place] [address]- 6435 March, [facility] [address] [id number] [place] [address]- 8001 March, [facility] [address] [id number] [place] [address]- 7671 March, [facility] [address] [id number] [place] [address]- 6145 March, [facility] [address] [id number] [place] [address]- 1596 March, [facility] [address] [id number] [place] [address] 30 Feb, 2012 [facility] [place] [facility] [address] [id number] [place] [address] Feb, [facility] [place] [facility] [address] [id number] [place] [address] Feb, [facility] [place] [facility] [address] [id number] [place] [address] Feb, [facility] [place] [facility] [address] [id number] [place] [address] Feb, [facility] [place] [facility] [address] [id number] [place] [address] Feb, [facility] [place] [facility] [address] [id number] [place] [address] Feb, [facility] [address] [id number] [place] [address] Feb, [facility] [place] [facility] [address] [id number] [place] [address] Feb, [facility] [place] [facility] [address] [id number] [place] [address] Jan, [facility] [place] [facility] [address] [id number] [place] [address] Jan, [facility] [address] [id number] [place] [address] Jan, [facility] [place] [facility] [address] [id number] [place] [address] Jan, [facility] [address] [id number] [place] [address] Dec, [facility] [place] [facility] [address] [id number] [place] [address] Dec, [facility] [address] [id number] [place] [address] Nov, [facility] [place] [facility] [address] [id number] [place] [address] Nov, [facility] [address] [id number] [place] [address] Nov, [facility] [place] [facility] [address] [id number] [place] [address] Nov, [facility] [place] [facility] [address] [id number] [place] [address] Nov, [facility] [place] [facility] [address] [id number] [place] [address] Oct, [facility] [place] [facility] [address] [id number] [place] [address] Oct, [facility] [place] [facility] [address] [facility] [id number] [address] Oct, [facility] [address] [id number] [address] Oct, [facility] [address] [id number] [address] Oct, [facility] [address] [id number] [address] Oct, [facility] [address] [id number] [address] Oct, [facility] [address] [id number] [address] Oct, [facility] [address] [id number] [address] Sep, IMMUNIZATIONS No Known Immunizations SOCIAL HISTORY Never Assessed REASON FOR VISIT Controlled Med Refill PLAN OF CARE VITAL SIGNS MEDICATIONS Medication Instructions Dosage Frequency Start Date End Date Duration Status Tramadol HCl 50 mg Orally 3 times a day 1 tablet as needed 8h Dec, Active RESULTS No Results PROCEDURES No Known procedures INSTRUCTIONS MEDICATIONS ADMINISTERED No Known Medications MEDICAL (GENERAL) HISTORY Type Description Date 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
--- OUTSIDE RECORDS SUMMARY | 2018-09-04 11:26 | XMS REPORT ---
Author Author SHAHNAZ MARQUEZ [facility] Address [address] [place] [address] Care Team Providers Care Reliner Name Role Phone SHAHNAZ MARQUEZ Unavailable PROBLEMS Type Condition ICD9-CM Code TNF79-UC Code Onset Dates Condition Status SNOMED Code Problem Type 2 diabetes mellitus without complication, without long-term current use of insulin E11.9 Active 877555748 Problem Reactive depression F32.9 Active 58008296 Problem Ventral hernia without obstruction or gangrene K43.9 Active 690512152 Problem 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 Active 12859642 Problem Paroxysmal atrial fibrillation I48.0 Active 840072286 Problem Anxiety F41.9 Active 85308211 Problem Pharyngeal dysphagia R13.13 Active 31843088836851 Problem Insomnia G47.00 Active 512461290 Problem Peripheral vascular disease I73.9 Active 178420786 Problem Coronary artery disease I25.10 Active 50592248 Problem Hyperlipidemia E78.5 Active 84364808 Problem Other chronic pain G89.29 Active 24771821 Problem Hypertension I10 Active 89191234 Problem Low back pain M54.5 Active 604459890 ALLERGIES No Information ENCOUNTERS Encounter Location Date Diagnosis [facility] [address] [id number], [place] [address] 20 Jul, 2018 [facility] [address] [place] [id number] 17 Jul, 2018 [facility] [id number], [place] [address] 11 Jul, 2018 Other chronic pain G89.29 [facility] [id number], [place] [address] Jul, [facility] [id number], [place] [address] Jul, [facility] [address] [place] [id number] Jun, 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 [place] [id number] [place] [address] 71896- 0129 Jun, Other chronic pain G89.29 [address] [place] [address] [address] [facility] [id number], [place] [address] Jun, [facility] [address] [place] [id number] May, Anxiety F41.9 ; Type 2 diabetes mellitus without complication, without long-term current use of insulin E11.9 ; Hypertension I10 ; Low back pain M54.5 ; Paroxysmal atrial fibrillation I48.0 and 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 [address] [address] [address] [facility] [id number], [place] [address] May, Other chronic pain G89.29 [facility] [address] [place] [id number] May, Low back pain M54.5 [place] [address] [id number] [place] [address] 05770- 1229 May, [place] [address] [address] [facility] [id number] [address] [place] [address] 95007- 9045 Apr, Other chronic pain G89.29 [address] [place] [address] [address] [facility] [id number] [place] [address] 19158- 5916 Apr, [place] [address] [facility] [id number] [place] [address] 52728- 7549 Apr, [facility] [address] [place] [id number] Apr, Closed compression fracture of L3 lumbar vertebra with routine healing, subsequent encounter S32.030D [facility] [address] [place] [id number] Apr, Low back pain M54.5 [facility] [address] [place] [id number] Apr, Coccydynia M53.3 [place] [id number], [place] [address] March, [facility] [address], [place] [address] March, Other chronic pain G89.29 [facility] [id number], [place] [address] 1214 March, [facility] [address], [place] [address] 6451 March, [facility] [id number], [place] [address] 9930 Feb, [facility] [address], [place] [address] 4980 Feb, Other chronic pain G89.29 [facility] [employer] [facility] [address] [place] [id number] Feb, Other chronic pain G89.29 and Anxiety F41.9 [facility] [address], [place] [address] 2[address] Feb, [facility] [address], [place] [address] 9150 Jan, [facility] [id number], [place] [address] 4158 Jan, [facility] [id number], [place] [address] 7039 Jan, [facility] [id number], [place] [address] 1192 Jan, [facility] [id number], [place] [address] 9272 Dec, [facility] [employer] [address] [place] [id number] Dec, Peripheral vascular disease I73.9 ; 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 ADRIENNE SANCHEZ [id number] [place] [address] Nov [facility] [id number] [address] Nov, Anxiety F41.9 [facility] [address], [place] [address] 46[address] Nov, [facility] [id number] [place] [id number] Nov, Anxiety F41.9 [facility] [address] [place] [id number] Nov, Status post surgery Z98.890 ; Confused R41.0 ; Anxiety F41.9 and Other chronic pain G89.29 [facility] [id number] [address] Nov, Other chronic pain G89.29 [facility] [address] [place] [address]- 9954 Oct, [facility] [id number] [place] [address] [id number] Oct, Other chronic pain G89.29 [facility] [id number] [address] [address] Oct, Anxiety F41.9 [facility] [id number] [place] [address] [id number] Sep, Other chronic pain G89.29 [facility] [id number] [id number] Sep, [facility] [address] [place] [id number] Aug, Dysuria R30.0 and Anxiety F41.9 [facility] [id number] [address] Aug, [facility] [address] [id number] [address] Aug, Other chronic pain G89.29 [facility] [id number] [address] Jul, Other chronic pain G89.29 [facility] [id number][place] [id number] Jun, [facility] [id number] [place] [address] [id number] Jun, Other chronic pain G89.29 [facility] [address] [address]693 Jun, [facility] [id number] [place] [address]055879- 7676 May, Other chronic pain G89.29 [facility] [address] [address] Apr, Other chronic pain G89.29 [facility] [address] [place] [id number] Apr, Reactive depression F32.9 and Pharyngeal dysphagia R13.13 [facility] [address] [place] [address] 57377- 4686 Apr, Urinary tract infection without hematuria, site unspecified N39.0 [facility] [id number], [place] [address] 6770 March, Other chronic pain G89.29 [facility] [id number], [place] [address] 8603 Feb, Other chronic pain G89.29 [facility] [id number], [place] [address] 3317 Feb, [facility] [id number] [place] [address] [id number] Feb, [facility] [address] [id number] Feb, Dysuria R30.0 and Ventral hernia without obstruction or gangrene K43.9 [facility] [address], [place] [address]- 2268 Jan, Other chronic pain G89.29 [facility] [id number] [place] [address] [id number] Dec, Other chronic pain G89.29 [facility] [address] [place] [address] 63921- 7890 Nov, Other chronic pain G89.29 [facility] [address] [place] [id number] Nov, Lymphadenitis I88.9 [facility] [id number] [place] [address] 67311- 7013 Nov, Other chronic pain G89.29 [facility] [id number] [place] [address] 46534- 8776 Nov, [facility] [id number] [place] [address] [id number] Nov, Other chronic pain G89.29 Via [facility] [address] [place] [id number] Oct, Low back pain M54.5 ; Hypertension I10 and Type 2 diabetes mellitus without complication, without long-term current use of insulin E11.9 [facility] [address], [place] [address]- 9466 Oct, [facility] [id number] [place] [address] 09581- 3779 Oct, [facility] [id number] [place] [address] 01673- 3869 Oct, [facility] [id number] [address] 57618- 5795 Oct, [facility] [id number] [place] [address] 07980- 1661 Sep, [facility] [id number] [place] [address] 73119- 2333 Sep, [facility] [address] [facility] [id number], [place] [address]- 8118 Aug, Other chronic pain G89.29 [facility] [address] [facility] [id number], [place] [address]- 1658 Jul, [facility] [id number] [place] [address] 59690- 4467 Jul, [facility] [id number] [place] [address] 23319- 4825 Jul, [facility] [id number] [place] [address] 69013- 8356 Jun, [facility] [id number] [place] [address] 88527- 8273 Jun, [facility] [address] [place] [id number] Jun, Low back pain M54.5 ; Other chronic pain G89.29 and Coronary artery disease I25.10 [facility] [address], [place] [address]- 6767 Jun, [facility] [id number] [place] [address] 27530- 9404 May, [facility] [address], [place] [address]- 3526 May, [facility] [address], [place] [address]- 7599 May, Other chronic pain G89.29 [facility] [address] [facility] [id number], [place] [address]- 7447 May, [facility] [id number] [place] [address] 22241- 3358 Apr, [facility] [address], [place] [address]- 3862 Apr, Acute cystitis without hematuria N30.00 [facility] [address], [place] [address]- 8913 16 Apr, 2016 Acute cystitis without hematuria N30.00 ; Coronary artery disease I25.10 ; Low back pain M54.5 and Other chronic pain G89.29 [facility] [address], [place] [address]- 6646 13 Apr, 2016 Other chronic pain G89.29 [facility] [id number] [place] [address] 95469- 2147 March, Other chronic pain G89.29 [facility] [id number] [address] 28253- 8946 18 Feb, 2016 [facility] [id number] [place] [address] 01596- 3037 15 Feb, 2016 Arthritis M19.90 [facility] [id number] [address] 46574- 4250 Feb, [facility] [id number] [address] 72389- 0807 Jan, [facility] [id number] [address] 08155- 9871 Jan, [facility] [id number], [place] [address]- 0712 Jan, Other chronic pain G89.29 [facility] [id number] [place] [address] 00648 2540 Jan, Hypertension I10 ; Coronary artery disease I25.10 and Insomnia G47.00 [facility] [address], [place] [address]- 5496 Jan, [facility] [id number] [address] 25492- 9768 Dec, Right hip pain M25.551 [facility] [id number], [place] [address]- 9146 Dec, [facility] [address], [place] [address]- 4679 Dec, [facility] [address], [place] [address]- 8286 Dec, [facility] [address], [place] [address]- 1696 Dec, Other chronic pain G89.29 [facility] [id number] [address] 77327- 6407 Dec, [facility] [address], [place] [address]- 9728 Nov, [facility] [address] [place] [address] 71598- 2878 Nov, Other chronic pain G89.29 [facility] [address] [place] [address] 89289- 0026 Nov, Right hip pain M25.551 and Coronary artery disease I25.10 [facility] [address], [place] [address]- 6604 Nov, Other chronic pain G89.29 [facility] [address], [place] [address]- 4513 Oct, [facility] [address], [place] [address]- 3984 Oct, [facility] [address], [place] [address]- 4797 Sep, [facility] [address], [place] [address]- 6028 Sep, [facility] [address], [place] [address]- 7871 Aug, [facility] [address], [place] [address]- 9364 Aug, Hypertension I10 ; Coronary artery disease I25.10 and Arthritis M19.90 [facility] [address] [id number] [place] [address]- 8791 Jun, [facility] [address] [id number] [place] [address]- 9061 Jun, Essential hypertension, benign 401.1 ; Other chronic pain 338.29 and Chronic airway obstruction, not elsewhere classified 496 [facility] [address] [id number] [place] [address]- 0239 Jun, [facility] [address] [id number] [place] [address]- 0766 Jun, [facility] [address] [facility] [id number] [place] [address]- 7742 Jun, [facility] [address] [facility] [id number] [place] [address]- 1065 May, [facility] [id number] [place] [address]- 7455 May, [facility] [address] [facility] [id number] [place] [address]- 2230 Apr, [facility] [address] [facility] [id number] [place] [address]- 0499 Apr, [facility] [id number] [place] [address]- 9040 Apr, [facility] [address] [facility] [id number] [place] [address]- 2422 March, [facility] [address] [facility] [id number] [place] [address]- 3371 March, [facility] [address] [facility] [id number] [place]- 3444 March, [facility] [address] [facility] [id number] [place] 7155 March, [facility] [address] [facility] [id number] [place] [address]- 7299 March, Sialadenitis 527.2 [facility] [address] [id number] [place] [address]- 3290 Feb, [facility] [address] [facility] [id number] [place] 0071 Feb, [facility] [address] [facility] [id number] [place] [address]- 4922 Feb, [facility] [address] [facility] [id number] [place] [address]- 6281 Feb, [facility] [address] [facility] [id number] [place] [address]- 0825 Feb, [facility] [address] [facility] [id number] [place] [address]- 7142 Jan, [facility] [id number] [place] [address]- 1199 Jan, [facility] [address] [facility] [id number] [place] [address]- 5122 Jan, [facility] [address] [facility] [id number] [place] [address]- 2784 Jan, [facility] [address] [facility] [id number] [place] [address]- 7359 Jan, [facility] [address] [facility] [id number], [place] [address]- 3016 Jan, [facility] [address] [facility] [id number], [place] [address]- 2285 Dec, [facility] [address] [facility] [id number] [place] 1712 Dec, [facility] [address] [facility] [id number], [place] [address]- 4282 Dec, [facility] [address] [facility] [id number], [place] [address]- 6208 Dec, [facility] [place] [facility] [address] [id number] [place] [address]- 0730 Dec, [facility] [place] [facility] [address] [id number] [place] [address]- 4329 Dec, [facility] [place] [facility] [address] [id number] [place] [address]- 1964 Nov, [facility] [place] [facility] [address] [id number] [place] [address]- 9523 Nov, [facility] [place] [facility] [address] [id number] [place] [address]- 5482 Nov, [facility] [place] [facility] [address] [id number] [place] [address]- 2867 Nov, [facility] [place] [facility] [address] [id number] [place] [address]- 3791 Nov, [facility] [place] [facility] [address] [id number] [place] [address]- 3083 Nov, [facility] [place] [facility] [address] [id number] [place] [address]- 5795 Nov, [facility] [place] [facility] [address] [id number] [place] [address]- 9124 Nov, [facility] [place] [facility] [address] [id number] [place] [address]- 8803 Nov, [facility] [place] [facility] [address] [id number] [place] [address]- 5129 Nov, [facility] [place] [facility] [address] [id number] [place] [address]- 0727 Nov, [facility] [place] [facility] [address] [id number] [place] [address]- 1769 Nov, [facility] [place] [facility] [address] [id number] [place] [address]- 9380 Nov, [facility] [place] [facility] [address] [id number] [place] [address]- 1637 Nov, [facility] [place] [facility] [address] [id number] [place] [address]- 9612 Oct, [facility] [place] [facility] [address] [id number] [place] 0461 Oct, [facility] [place] [facility] [address] [id number] [place] [address]- 0542 Oct, [facility] [place] [facility] [address] [id number] [place] [address] Oct, [facility] [place] [facility] [address] [id number] [place] [address] Oct, [facility] [place] [facility] [address] [id number] [place] [address] Oct, [facility] [place] [facility] [address] [id number] [place] [address] Oct, [facility] [place] [facility] [address] [id number] [place] [address] 2010 Oct, [facility] [place] [facility] [address] [id number] [place] [address] Oct, [facility] [place] [facility] [address] [id number] [place] [address] Sep, [facility] [place] [facility] [address] [id number] [place] [address] Sep, [facility] [place] [facility] [address] [id number] [place] [address] Sep, [facility] [place] [facility] [address] [id number] [place] [address] Sep, [facility] [place] [facility] [address] [id number] [place] [address] Sep, [facility] [place] [facility] [address] [id number] [place] [address] Sep, [facility] [place] [facility] [address] [id number] [place] [address] Sep, [facility] [place] [facility] [address] [id number] [place] [address] Sep, [facility] [place] [facility] [address] [id number] [place] [address] Sep, [facility] [place] [facility] [address] [id number] [place] [address] Sep, [facility] [place] [facility] [address] [id number] [place] [address] Sep, [facility] [place] [facility] [address] [id number] [place] [address] Sep, [facility] [place] [facility] [address] [id number] [place] [address] Aug, [facility] [place] [facility] [address] [id number] [place] [address] Aug, [facility] [place] [facility] [address] [id number] [place] [address] Aug, [facility] [place] [facility] [address] [id number] [place] [address] Aug, [facility] [place] [facility] [address] [id number] [place] [address] Aug, [facility] [place] [facility] [address] [id number] [place] [address] Aug, [facility] [place] [facility] [address] [id number] [place] [address] Aug, [facility] [place] [facility] [address] [id number] [place] [address] Aug, [facility] [place] [facility] [address] [id number] [place] [address] 30 Jul, 2014 [facility] [place] [facility] [address] [id number] [place] [address] 30 Jul, 2014 [facility] [place] [facility] [address] [id number] [place] [address]- [address] 30 Jul, 2013 [facility] [place] [facility] [address] [id number] [place] [address] 30 Jul, 2013 [facility] [place] [facility] [address] [id number] [place] [address] 25 Jul, 2013 [facility] [place] [facility] [address] [id number] [place] [address] 25 Jul, 2013 [facility] [place] [facility] [address] [id number] [place] [address] 15 Jul, 2014 [facility] [place] [facility] [address] [id number] [place] [address] 15 Jul, 2014 [facility] [place] [facility] [address] [id number] [place] [address] Jul, [facility] [place] [facility] [address] [id number] [place] [address] Jul, [facility] [place] [facility] [address] [id number] [place] [address] Jun, [facility] [place] [facility] [address] [id number] [place] [address] Jun, [facility] [place] [facility] [address] [id number] [place] [address] Jun, [facility] [place] [facility] [address] [id number] [place] [address] Jun, [facility] [place] [facility] [address] [id number] [place] [address] Jun, [facility] [place] [facility] [address] [id number] [place] [address] Jun, [facility] [place] [facility] [address] [id number] [place] [address] Jun, [facility] [place] [facility] [address] [id number] [place] [address] 7636 Jun, [facility] [place] [facility] [address] [id number] [place] [address] 7366 Jun, [facility] [place] [facility] [address] [id number] [place] [address] 8996 Jun, [facility] [place] [facility] [address] [id number] [place] [address]- 4277 Jun, [facility] [place] [facility] [address] [id number] [place] [address] 0757 Jun, [facility] [place] [facility] [address] [id number] [place] [address]- 3590 Jun, [facility] [place] [facility] [address] [id number] [place] [address]- 5285 Jun, [facility] [place] [facility] [address] [id number] [place] [address] 3016 Jun, [facility] [place] [facility] [address] [id number] [place] [address]- 9170 Jun, [facility] [place] [facility] [address] [id number] [place] [address]- 6101 Jun, [facility] [place] [facility] [address] [id number] [place] [address] 9891 Jun, [facility] [place] [facility] [address] [id number] [place] [address]- 7060 Jun, [facility] [place] [facility] [address] [id number] [place] [address]- 9002 Jun, [facility] [place] [facility] [address] [id number] [place] [address]- 6284 Jun, [facility] [place] [facility] [address] [id number] [place] [address]- 4419 Jun, [facility] [place] [facility] [address] [id number] [place] [address]- 7340 May, [facility] [place] [facility] [address] [id number] [place] [address]- 5981 May, [facility] [place] [facility] [address] [id number] [place] [address]- 8120 May, [facility] [place] [facility] [address] [id number] [facility] [place] [address] 24[address] May, [facility] [place] [facility] [address] [id number] [place] [address]- 2073 May, [facility] [place] [facility] [address] [id number] [place] [address]- 1747 May, [facility] [place] [facility] [address] [id number] [place] [address]- 8573 May, [facility] [place] [facility] [address] [id number] [place] [address]- 4532 May, [facility] [place] [facility] [address] [id number] [place] [address]- 9790 May, [facility] [place] [facility] [address] [id number] [place] [address]- 0948 May, [facility] [place] [facility] [address] [id number] [place] [address]- 1345 May, [facility] [place] [facility] [address] [id number] [place] [address]- 2365 May, [facility] [place] [facility] [address] [id number] [place] [address]- 6012 May, [facility] [place] [facility] [address] [id number] [place] [address]- 0801 Apr, [facility] [place] [facility] [address] [id number] [place] [address]- 8234 Apr, [facility] [place] [facility] [address] [id number] [place] [address]- 7677 Apr, [facility] [place] [facility] [address] [id number] [place] [address]- 4408 Apr, [facility] [place] [facility] [address] [id number] [place] [address]- 2385 Apr, [facility] [place] [facility] [address] [id number] [place] [address]- 7498 Apr, [facility] [place] [facility] [address] [id number] [place] [address]- 7955 Apr, [facility] [place] [facility] [address] [id number] [place] [address]- 3892 Apr, [facility] [place] [facility] [address] [id number] [place] [address]- 0625 Apr, [facility] [place] [facility] [address] [id number] [place] [address]- 7709 March, [facility] [place] [facility] [address] [id number] [place] [address]- 4683 March, [facility] [place] [facility] [address] [id number] [place] [address]- 8342 March, [facility] [place] [facility] [address] [id number] [place] [address]- 8131 March, [facility] [place] [facility] [address] [id number] [place] [address]- 9110 March, [facility] [place] [facility] [address] [id number] [place] [address]- 7091 March, [facility] [place] [facility] [address] [id number] [place] [address]- 1245 March, [facility] [place] [facility] [address] [id number] [place] [address]- 2193 March, [facility] [place] [facility] [address] [id number] [place] [address]- 8376 March, [facility] [place] [facility] [address] [id number] [place] [address]- 1061 March, [facility] [place] [facility] [address] [id number] [place] [address]- 1485 March, [facility] [place] [facility] [address] [id number] [place] [address]- 5603 March, [facility] [place] [facility] [address] [id number] [place] [address]- 5046 March, [facility] [place] [facility] [address] [id number] [place] [address] March, [facility] [place] [facility] [address] [id number] [place] [address]- 2075 March, [facility] [place] [facility] [address] [id number] [place] [address]- 7786 March, [facility] [place] [facility] [address] [id number] [place] [address]- 4284 March, [facility] [address] [id number] [place] [address]- 5356 March, [facility] [place] [facility] [address] [id number] [place] [address]- 7582 March, [facility] [place] [facility] [address] [id number] [place] [address]- 7404 March, [facility] [place] [facility] [address] [id number] [place] [address]- 2943 Feb, [facility] [place] [facility] [address] [id number] [place] [address]- 4145 Feb, [facility] [place] [facility] [address] [id number] [place] [address]- 2076 Feb, [facility] [place] [facility] [address] [id number] [place] [address]- 5258 Feb, [facility] [place] [facility] [address] [id number] [place] [address]- 0153 Feb, [facility] [place] [facility] [address] [id number] [place] [address] Feb, [facility] [place] [facility] [address] [id number] [place] [address]- 0280 Feb, [facility] [place] [facility] [address] [id number] [place] [address]- 0653 Feb, [facility] [place] [facility] [address] [id number] [place] [address]- 6231 Jan, [facility] [place] [facility] [address] [id number] [place] [address]- 1657 Jan, [facility] [place] [facility] [address] [id number] [place] [address]- 0431 Jan, [facility] [place] [facility] [address] [id number] [place] [address]- 4207 Jan, [facility] [place] [facility] [address] [id number] [place] [address]- 7512 Jan, [facility] [place] [facility] [address] [id number] [place] [address]- 0807 Jan, [facility] [place] [facility] [address] [id number] [place] [address]- 4466 Jan, [facility] [place] [facility] [address] [id number] [place] [address]- 1067 Jan, [facility] [place] [facility] [address] [id number] [place] [address]- 4414 Jan, [facility] [place] [facility] [address] [id number] [place] [address]- 3315 Jan, [facility] [place] [facility] [address] [id number] [place] [address]- 7772 Dec, [facility] [place] [facility] [address] [id number] [place] [address]- 9213 Dec, [facility] [place] [facility] [address] [id number] [place] [address]- 6381 Dec, [facility] [place] [facility] [address] [id number] [place] [address]- 2866 2013 [facility] [place] [facility] [address] [id number] [place] [address] 4579 2013 [facility] [place] [facility] [address] [id number] [place] [address]- 1756 13 Dec, 2013 [facility] [place] [facility] [address] [id number] [place] [address]- 0736 Dec, [facility] [place] [facility] [address] [id number] [place] [address]- 4488 Dec, [facility] [place] [facility] [address] [id number] [place] [address]- 0744 Nov, [facility] [place] [facility] [address] [id number] [place] [address]- 9498 Nov, [facility] [place] [facility] [address] [id number] [place] [address]- 7923 Nov, [facility] [place] [facility] [address] [id number] [place] [address]- 3692 Nov, [facility] [place] [facility] [address] [id number] [place] [address]- 4187 Nov, [facility] [place] [facility] [address] [id number] [place] [address]- 0602 Nov, [facility] [place] [facility] [address] [id number] [place] [address]- 7052 Nov, [facility] [place] [facility] [address] [id number] [place] [address]- 8640 Nov, [facility] [place] [facility] [address] [id number] [place] [address]- 6168 Nov, [facility] [place] [facility] [address] [id number] [place] [address]- 5860 Nov, [facility] [place] [facility] [address] [id number] [place] [address]- 0943 Nov, [facility] [place] [facility] [address] [id number] [place] [address]- 9481 Nov, [facility] [address] [id number] [place] [address]- 9791 Nov, [facility] [address] [id number] [place] [address]- 2739 Oct, [facility] [address] [id number] [place] [address]- 6253 Oct, [facility] [address] [id number] [place] [address]- 0289 Oct, [facility] [address] [id number] [place] [address]- 4436 Oct, [facility] [address] [id number] [place] [address]- 4418 Oct, [facility] [address] [id number] [place] [address]- 6259 Oct, [facility] [address] [id number] [place] [address]- 7725 Oct, [facility] [address] [id number] [place] [address]- 4579 Oct, [facility] [address] [id number] [place] [address]- 3766 Oct, [facility] [address] [id number] [place] [address]- 8777 Oct, [facility] [address] [id number] [place] [address]- 4995 Oct, [facility] [place] [facility] [address] [id number] [place] [address]- 7383 Oct, [facility] [address] [id number] [place] [address]- 2057 Oct, [facility] [address] [id number][place] [address]- 1700 Oct, [facility] [place] [facility] [address] [id number] [place] [address]- 7439 Sep, [facility] [place] [facility] [address] [id number] [place] [address]- 9909 Sep, [facility] [place] [facility] [address] [id number] [place] [address]- 2842 Sep, [facility] [place] [facility] [address] [id number], [place] [address]- 7384 Sep, [facility] [place] [facility] [address] [id number] [place] [address]- 6398 Sep, [facility] [place] [facility] [address] [id number] [place] [address]- 9121 Sep, [facility] [place] [facility] [address] [id number], [place] [address]- 9029 Sep, [facility] [place] [facility] [address] [id number], [place] [address]- 6877 Sep, [facility] [place] [facility] [address] [id number], [place] [address]- 6033 Sep, [facility] [place] [facility] [address] [id number], [place] [address]- 8407 Sep, [facility] [place] [facility] [address] [id number], [place] [address]- 5190 Aug, [facility] [place] [facility] [address] [id number], [place] [address]- 9963 Aug, [facility] [place] [facility] [address] [id number], [place] [address]- 0373 Aug, [facility] [place] [facility] [address] [id number], [place] [address]- 3146 Aug, [facility] [place] [facility] [address] [id number], [place] [address]- 5785 Aug, [facility] [place] [facility] [address] [id number] [place] [address]- 1833 23 Aug, 2012 [facility] [address] [id number] [place] [address]- 7249 23 Aug, 2012 [facility] [place] [facility] [address] [id number] [place] [address]- 1645 23 Aug, 2012 [facility] [address] [id number] [place] [address]- 7889 22 Aug, 2012 [facility] [place] [facility] [address] [id number] [place] [address]- 7715 22 Aug, 2012 [facility] [address] [id number] [place] [address]- 2273 18 Aug, 2012 [facility] [address] [id number] [place] [address]- 1486 18 Aug, 2012 [facility] [place] [facility] [address] [id number] [place] [address]- 8690 18 Aug, 2012 [facility] [address] [id number] [place] [address]- 8555 18 Aug, 2012 [facility] [place] [facility] [address] [id number] [place] [address]- 7491 17 Aug, 2012 [facility] [address] [id number] [place] [address]- 0665 14 Aug, 2013 [facility] [place] [facility] [address] [id number] [place] [address]- 8017 14 Aug, 2012 [facility] [place] [facility] [address] [id number] [place] [address]- 2718 Aug, 2012 [facility] [place] [facility] [address] [id number] [place] [address]- 8044 20 Jul, 2012 [facility] [place] [facility] [address] [id number] [place] [address]- 8867 19 Jul, 2012 [facility] [place] [facility] [address] [id number] [place] [address]- 3812 Jul, [facility] [place] [facility] [address] [id number] [place] [address]- 2524 Jul, [facility] [place] [facility] [address] [id number] [place] [address]- 5871 Jul, [facility] [place] [facility] [address] [id number] [place] [address]- 2695 Jun, [facility] [place] [facility] [address] [id number] [place] [address]- 9601 Jun, [facility] [place] [facility] [address] [id number] [place] [address]- 8149 Jun, [facility] [place] [facility] [address] [id number] [place] [address]- 9357 Jun, [facility] [place] [facility] [address] [id number] [place] [address]- 9898 Jun, [facility] [place] [facility] [address] [id number] [place] [address]- 9198 Jun, [facility] [place] [facility] [address] [id number] [place] [address]- 3000 Jun, [facility] [place] [facility] [address] [id number] [place] [address]- 2712 Jun, [facility] [place] [facility] [address] [id number] [place] [address]- 3309 Jun, [facility] [place] [facility] [address] [id number] [place] [address]- 5313 Jun, [facility] [place] [facility] [address] [id number] [place] [address]- 0040 May, [facility] [place] [facility] [address] [id number] [place] [address]- 7720 May, [facility] [place] [facility] [address] [id number] [place] [address]- 1480 May, [facility] [place] [facility] [address] [id number] [place] [address]- 8434 May, [facility] [address] [id number] [place] [address]- 1973 May, [facility] [place] [facility] [address] [id number] [place] [address]- 3825 May, [facility] [address] [id number] [place] [address]- 5080 May, [facility] [address] [id number] [place] [address]- 7510 May, [facility] [address] [id number] [place] [address]- 5600 May, [facility] [address] [id number] [place] [address]- 0403 Apr, [facility] [address] [id number] [place] [address]- 6720 Apr, [facility] [address] [id number] [place] [address]- 4620 Apr, [facility] [address] [id number] [place] [address]- 7125 Apr, [facility] [address] [id number] [place] [address]- 8188 Apr, [facility] [address] [id number] [place] [address]- 3322 Apr, [facility] [place] [facility] [address] [id number], [place] [address]- 4006 Apr, [facility] [place] [facility] [address] [id number] [place] [address]- 2384 March, [facility] [place] [facility] [address] [id number] [place] [address]- 8039 Feb, [facility] [place] [facility] [address] [id number] [place] [address]- 2319 Feb, [facility] [place] [facility] [address] [id number] [place] [address]- 0243 12 Feb, 2013 [facility] [place] [facility] [address] [id number] [place] 8003 28 Jan, 2013 [facility] [place] [facility] [address] [id number] [place] [address]- 2239 21 Jan, 2013 [facility] [place] [facility] [address] [id number] [place] [address]- 1827 19 Jan, 2013 [facility] [place] [facility] [address] [id number] [place] [address]- 2970 14 Jan, 2013 [facility] [place] [facility] [address] [id number] [place] [address]- 4863 12 Jan, 2013 [facility] [place] [facility] [address] [id number] [place] [address]- 4396 08 Jan, 2013 [facility] [place] [facility] [address] [id number] [place] [address]- 6362 07 Jan, 2013 [facility] [place] [facility] [address] [id number] [place] [address]- 6633 04 Jan, 2013 [facility] [place] [facility] [address] [id number] [place] [address]- 3590 28 Dec, 2012 [facility] [place] [facility] [address] [id number] [place] [address]- 6532 25 Dec, 2012 [facility] [place] [facility] [address] [id number] [place] [address]- 5450 13 Dec, 2012 [facility] [place] [facility] [address] [id number] [place] [address]- 4298 11 Dec, 2012 [facility] [place] [facility] [address] [id number] [place] 8668 07 Dec, 2012 [facility] [place] [facility] [address] [id number] [place] [address]- 8885 06 Dec, 2012 [facility] [place] [facility] [address] [id number], [place] [address]- 5089 05 Dec, 2012 [facility] [address] [id number] [place] [address]- 6295 Nov, [facility] [place] [facility] [address] [id number] [place] [address]- 7445 24 Nov, 2012 [facility] [address] [id number] [place] [address]- 5825 18 Nov, 2012 [facility] [address] [id number] [place] [address]- 2119 15 Nov, 2012 [facility] [address] [id number] [place] [address]- 6967 Nov, [facility] [address] [id number] [place] [address]- 4995 Nov, [facility] [address] [facility] [id number] [place] [address] Nov, [facility] [address] [id number] [place] [address] Oct, [facility] [address] [id number] [place] [address] Oct, [facility] [address] [facility] [id number] [place] [address] Oct, [facility] [address] [id number] [place] [address] Oct, [facility] [place] [facility] [address] [id number] [place] [address] Oct, [facility] [place] [facility] [address] [id number] [place] [address] Oct, [facility] [place] [facility] [address] [id number] [place] [address] Oct, [facility] [place] [facility] [address] [facility] [id number] [place] [address] Oct, [facility] [place] [facility] [address] [id number] [place] [address] Oct, [facility] [place] [facility] [address] [id number] [place] [address] Oct, [facility] [place] [facility] [address] [id number] [place] [address] Oct, [facility] [place] [facility] [address] [id number] [place] [address] Oct, [facility] [place] [facility] [address] [id number] [place] [address] Sep, [facility] [place] [facility] [address] [id number] [place] [address] Sep, [facility] [place] [facility] [address] [id number] [place] [address] Sep, [facility] [place] [facility] [address] [id number] [place] [address] Sep, [facility] [place] [facility] [address] [id number] [place] [address] Sep, [facility] [place] [facility] [address] [id number] [place] [address] Sep, [facility] [place] [facility] [address] [facility] [id number] [place] [address] Sep, [facility] [place] [facility] [address] [id number] [place] [address]47 Sep, [facility] [place] [facility] [address] [id number] [place] [address] 2514 Sep, [facility] [place] [facility] [address] [id number] [place] [address]268 Sep, [facility] [place] [facility] [address] [id number] [place] [address] Sep, [facility] [place] [facility] [address] [id number] [place] [address] Aug, [facility] [place] [facility] [address] [id number] [place] [address]27 Aug, [facility] [place] [facility] [address] [id number] [place] [address] Aug, [facility] [place] [facility] [address] [id number] [place] [address] 69[address] Aug, [facility] [place] [facility] [address] [id number] [place] [address]267 Aug, [facility] [place] [facility] [address] [id number] [place] [address] Aug, [facility] [place] [facility] [address] [id number] [place] [address] 9686 Aug, [facility] [place] [facility] [address] [id number] [place] [address] Aug, [facility] [place] [facility] [address] [id number] [place] [address] 8233 Aug, [facility] [place] [facility] [address] [id number] [place] [address] 54[address] Aug, [facility] [place] [facility] [address] [id number] [place] [address] Jul, [facility] [place] [facility] [address] [id number], [place] [address] 20 Jul, 2012 [facility] [place] [facility] [address] [id number], [place] [address] 10 Jul, 2012 [facility] [place] [facility] [address] [id number] [place] [address] 06 Jul, 2012 [facility] [place] [facility] [address] [id number], [place] [address] 30 Jun, 2012 [facility] [place] [facility] [address] [id number] [place] [address] Jun, [facility] [place] [facility] [address] [id number] [place] [address]- [address] 16 Jun, 2012 [facility] [place] [facility] [address] [id number] [place] [address] Jun, [facility] [place] [facility] [address] [id number] [place] [address]96 Jun, [facility] [place] [facility] [address] [id number] [place] [address] Jun, [facility] [place] [facility] [address] [id number] [place] [address] 6314 Jun, [facility] [place] [facility] [address] [id number] [place] [address]- [address] May, [facility] [place] [facility] [address] [id number] [place] [address]- [address] May, [facility] [place] [facility] [address] [id number] [place] [address]- 6683 May, [facility] [place] [facility] [address] [id number] [place] [address]- 8843 May, [facility] [place] [facility] [address] [id number] [place] [address]- 8661 May, [facility] [place] [facility] [address] [id number] [place] [address]- 2869 Apr, [facility] [place] [facility] [address] [id number] [place] [address] 4032 Apr, [facility] [place] [facility] [address] [id number] [place] [address] 4[address] Apr, [facility] [place] [facility] [address] [id number] [place] [address]- 2363 Apr, [facility] [place] [facility] [address] [id number] [place] [address] 378[address] Apr, [facility] [place] [facility] [address] [id number] [place] [address] 135[address] March, [facility] [place] [facility] [address] [id number] [place] [address]- 2514 March, [facility] [address] [id number] [place] [address] 63[address] March, [facility] [address] [id number] [place] [address]- 3[address] March, [facility] [address] [id number] [place] [address]- 72[address] March, [facility] [address] [id number] [place] [address]- 0256 March, [facility] [address] [id number] [place] [address]- 8[address] March, [facility] [address] [id number] [place] [address]- [address] March, [facility] [address] [id number] [place] [address]- 4658 March, [facility] [address] [id number] [place] [address]- 3376 March, [facility] [address] [id number] [place] [address]- 2251 30 Feb, 2012 [facility] [place] [facility] [address] [id number] [place] [address]- 59[address] Feb, [facility] [place] [facility] [address] [id number] [place] [address]- 7638 Feb, [facility] [place] [facility] [address] [id number] [place] [address]- 0461 Feb, [facility] [place] [facility] [address] [id number] [place] [address]- 1276 Feb, [facility] [place] [facility] [address] [id number] [place] [address]- 3978 Feb, [facility] [place] [facility] [address] [id number] [place] [address]- 0216 Feb, [facility] [address] [id number] [place] [address] Feb, [facility] [place] [facility] [address] [id number] [place] [address] Feb, [facility] [place] [facility] [address] [id number] [place] [address] Jan, [facility] [place] [facility] [address] [id number] [place] [address] Jan, [facility] [address] [id number] [place] [address] Jan, [facility] [place] [facility] [address] [id number] [place] [address] Jan, [facility] [address] [id number] [place] [address] Dec, [facility] [place] [facility] [address] [id number] [place] [address] Dec, [facility] [address] [id number] [place] [address] Nov, [facility] [place] [facility] [address] [id number] [place] [address] Nov, [facility] [address] [id number] [place] [address] Nov, [facility] [place] [facility] [address] [id number] [place] [address] Nov, [facility] [place] [facility] [address] [id number] [place] [address] Nov, [facility] [place] [facility] [address] [id number] [place] [address] Oct, [facility] [place] [facility] [address] [id number] [place] [address] Oct, [facility] [place] [facility] [address] [facility] [id number] [address] Oct, [facility] [address] [id number] [address] Oct, [facility] [address] [id number], [place] [address] Oct, [facility] [address] [id number], [place] [address] Oct, [facility] [id number], [place] [address] Oct, [facility] [address] [id number], [place] [address] Oct, [facility] [address] [id number], [place] [address] Sep, IMMUNIZATIONS No Known Immunizations SOCIAL HISTORY Never Assessed REASON FOR VISIT UA order PLAN OF CARE VITAL SIGNS MEDICATIONS Unknown Medications RESULTS No Results PROCEDURES No Known procedures INSTRUCTIONS MEDICATIONS ADMINISTERED No Known Medications MEDICAL (GENERAL) HISTORY Type Description Date 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
--- OUTSIDE RECORDS SUMMARY | 2018-09-04 11:27 | XMS REPORT ---
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 Name Role Phone SHAHNAZ MARQUEZ Unavailable PROBLEMS Type Condition ICD9-CM Code CQI35-QD Code Onset Dates Condition Status SNOMED Code Problem Type 2 diabetes mellitus without complication, without long-term current use of insulin E11.9 Active 725285531 Problem Reactive depression F32.9 Active 49142498 Problem Ventral hernia without obstruction or gangrene K43.9 Active 476989563 Problem 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 Active 03693017 Problem Paroxysmal atrial fibrillation I48.0 Active 547364216 Problem Anxiety F41.9 Active 66455713 Problem Pharyngeal dysphagia R13.13 Active 84947145892043 Problem Insomnia G47.00 Active 372451385 Problem Peripheral vascular disease I73.9 Active 994102912 Problem Coronary artery disease I25.10 Active 21605495 Problem Hyperlipidemia E78.5 Active 07896574 Problem Other chronic pain G89.29 Active 94958450 Problem Hypertension I10 Active 62297180 Problem Low back pain M54.5 Active 411004259 ALLERGIES No Information ENCOUNTERS Encounter Location Date Diagnosis [facility] [id number] [address] 20 Jul, 2018 [facility] [address] [place] [id number] 17 Jul, 2018 [facility] [id number], [place] [address] 11 Jul, 2018 Other chronic pain G89.29 [facility] [id number], [place] [address] 1672 Jul, [facility] [id number], [place] [address] Jul, [facility] [address] [place] [id number] Jun, 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 [place] [id number] [place] [address] 94219- 8251 Jun, Other chronic pain G89.29 [address] [facility] [id number], [place] [address] Jun, [facility] [address] [place] [id number] May, Anxiety F41.9 ; Type 2 diabetes mellitus without complication, without long-term current use of insulin E11.9 ; Hypertension I10 ; Low back pain M54.5 ; Paroxysmal atrial fibrillation I48.0 and 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 [address] [facility] [id number], [place] [address] May, Other chronic pain G89.29 [facility] [address] [place] [id number] May, Low back pain M54.5 [place] [address] [id number] [place] [address]56- 7458 May, [address] [address] [facility] [id number] [place] [address] 78423- 5962 Apr, Other chronic pain G89.29 [address] [place] [facility] [id number] [place] [address] 31607- 4632 Apr, [place] [address] [facility] [id number] [place] [address] 89261- 7779 Apr, [facility] [address] [place] [id number] Apr, Closed compression fracture of L3 lumbar vertebra with routine healing, subsequent encounter S32.030D [facility] [address] [place] [id number] Apr, Low back pain M54.5 [facility] [address] [place] [id number] Apr, Coccydynia M53.3 [place] [id number], [place] [address] March, [facility] [address], [place] [address] 16[address] March, Other chronic pain G89.29 [facility] [id number], [place] [address] March, [facility] [address], [place] [address]- 6[address] March, [facility] [id number], [place] [address] 1470 Feb, [facility] [address], [place] [address]- 0[address] Feb, Other chronic pain G89.29 [facility] [address] [place] [id number] Feb, Other chronic pain G89.29 and Anxiety F41.9 [facility] [address]005[address], [place] [address] 9261 Feb, [facility] [address], [place] [address] 1304 Jan, [facility] [id number], [place] [address] 1393 Jan, [facility] [id number], [place] [address] 8963 Jan, [facility] [id number], [place] [address] 2101 Jan, [facility] [id number], [place] [address] Dec, [facility] [employer] [facility] [address] [place] [id number] Dec, Peripheral vascular disease I73.9 ; 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 ADRIENNE SANCHEZ [id number] [place] [address] Nov [facility] [id number] [address] Nov, Anxiety F41.9 [facility] [address]005[address], [place] [address] 76[address] Nov, [facility] [id number] [place] [id number] Nov, Anxiety F41.9 [facility] [address] [place] [id number] Nov, Status post surgery Z98.890 ; Confused R41.0 ; Anxiety F41.9 and Other chronic pain G89.29 [facility] [id number] [address] Nov, Other chronic pain G89.29 [facility] [address] [place] [address]79[address]- 5994 Oct, [facility] [id number] [place] [address] [id number] Oct, Other chronic pain G89.29 [facility] [id number] [address] Oct, Anxiety F41.9 [facility] [id number] [place] [address] [id number] Sep, Other chronic pain G89.29 [facility] [id number] [address] Sep, [facility] [address] [place] [id number] Aug, Dysuria R30.0 and Anxiety F41.9 [facility] [id number] Aug, [facility] [address] [id number] [address] Aug, Other chronic pain G89.29 [facility] [id number] [address] Jul, Other chronic pain G89.29 [facility] [id number] [address] Jun, [facility] [id number] [place] [address] [id number] Jun, Other chronic pain G89.29 [facility] [address] [address] [address] Jun, [facility] [address] [place] [address] 22826049- 2946 May, Other chronic pain G89.29 [facility] [address] [address] Apr, Other chronic pain G89.29 [facility] [address] [id number] Apr, Reactive depression F32.9 and Pharyngeal dysphagia R13.13 [facility] [address] [place] [address] 31548- 7782 Apr, Urinary tract infection without hematuria, site unspecified N39.0 [facility] [id number], [place] [address] 8260 March, Other chronic pain G89.29 [facility] [id number], [place] [address] 5295 Feb, Other chronic pain G89.29 [facility] [id number], [place] [address] 0770 Feb, [facility] [id number] [place] [address] [id number] Feb, [facility] [address] [place] [id number] Feb, Dysuria R30.0 and Ventral hernia without obstruction or gangrene K43.9 [facility] [address], [place] [address]- 1028 Jan, Other chronic pain G89.29 [facility] [id number] [place] [address] [id number] Dec, Other chronic pain G89.29 [facility] [address] [place] [address] 38559- 6455 Nov, Other chronic pain G89.29 [facility] [address] [place] [id number] Nov, Lymphadenitis I88.9 [facility] [id number] [place] [address] 23403- 0688 Nov, Other chronic pain G89.29 [facility] [id number] [place] [address] 56062- 1337 Nov, [facility] [id number] [place] [address] [id number] Nov, Other chronic pain G89.29 [facility] [address] [place] [id number] Oct, Low back pain M54.5 ; Hypertension I10 and Type 2 diabetes mellitus without complication, without long-term current use of insulin E11.9 [facility] [address], [place] [address]- 5179 Oct, [facility] [address] [place] [address] 59338- 7842 Oct, [facility] [address] [place] [address] 64752- 8135 Oct, [facility] [id number] [place] [address] 54671- 9812 Oct, [facility] [address] [place] [address] 11456- 2571 Sep, [facility] [id number] [place] [address] 72293- 3652 Sep, [facility] [address] [facility] [id number], [place] [address]- 4905 Aug, Other chronic pain G89.29 [facility] [address] [facility] [id number], [place] [address]- 4826 Jul, [facility] [address] [place] [address] 38478- 2071 Jul, [facility] [address] [place] [address] 40483- 6988 Jul, [facility] [id number] [place] [address] 29636- 4961 Jun, [facility] [id number] [place] [address] 95518- 9640 Jun, [facility] [address] [place] [id number] Jun, Low back pain M54.5 ; Other chronic pain G89.29 and Coronary artery disease I25.10 [facility] [address], [place] [address]- 7801 Jun, [facility] [address] [place] [address] 33556- 9955 May, [facility] [address], [place] [address]- 0746 May, [facility] [address], [place] [address]- 2477 May, Other chronic pain G89.29 [facility] [address] [facility] [id number], [place] [address]- 4164 May, [facility] [address] [place] [address] 90081- 8664 Apr, [facility] [address], [place] [address]- 6597 Apr, Acute cystitis without hematuria N30.00 [facility] [address], [place] [address]- 9546 16 Apr, 2016 Acute cystitis without hematuria N30.00 ; Coronary artery disease I25.10 ; Low back pain M54.5 and Other chronic pain G89.29 [facility] [address], [place] [address]- 5556 13 Apr, 2016 Other chronic pain G89.29 [facility] [id number] [place] [address] 34632- 3270 March, Other chronic pain G89.29 [facility] [id number] [place] [address] 55487- 6926 18 Feb, 2016 [facility] [id number] [place] [address] 50150- 1740 15 Feb, 2016 Arthritis M19.90 [facility] [id number] [place] [address] 26983- 6660 Feb, [facility] [id number] [place] [address] 74544- 6052 Jan, [facility] [id number] [place] [address] 60615- 3965 Jan, [facility] [address] [id number], [place] [address]- 2416 Jan, Other chronic pain G89.29 [facility] [id number] [place] [address] 72416 2540 Jan, Hypertension I10 ; Coronary artery disease I25.10 and Insomnia G47.00 [facility] [address], [place] [address]- 7046 Jan, [facility] [id number] [place] [address] 08190- 1762 Dec, Right hip pain M25.551 [facility] [address] [id number], [place] [address]- 5706 Dec, [facility] [address], [place] [address]- 4603 Dec, [facility] [address], [place] [address]- 6266 Dec, [facility] [address], [place] [address]- 2716 Dec, Other chronic pain G89.29 [facility] [id number] [place] [address] 54025- 4152 Dec, [facility] [address], [place] [address]- 4161 Nov, [facility] [address] [place] [address] 71043- 9573 Nov, Other chronic pain G89.29 [facility] [address] [place] [address] 80191- 9007 Nov, Right hip pain M25.551 and Coronary artery disease I25.10 [facility] [address], [place] [address]- 6046 Nov, Other chronic pain G89.29 [facility] [address], [place] [address]- 8161 Oct, [facility] [address], [place] [address]- 5052 Oct, [facility] [address], [place] [address]- 5165 Sep, [facility] [address], [place] [address]- 1358 Sep, [facility] [address], [place] [address]- 1811 Aug, [facility] [address], [place] [address]- 5553 Aug, Hypertension I10 ; Coronary artery disease I25.10 and Arthritis M19.90 [facility] [address] [id number] [place] [address]- 4540 Jun, [facility] [address] [id number] [place] [address]- 0892 Jun, Essential hypertension, benign 401.1 ; Other chronic pain 338.29 and Chronic airway obstruction, not elsewhere classified 496 [facility] [address] [id number] [place] [address]- 2616 Jun, [facility] [address] [id number] [place] [address]- 0990 Jun, [facility] [address] [facility] [id number] [place] [address]- 3420 Jun, [facility] [address] [facility] [id number] [place] [address]- 6588 May, [facility] [id number] [place] [address]- 6043 May, [facility] [address] [facility] [id number] [place] [address]- 5370 Apr, [facility] [address] [facility] [id number] [place] [address]- 3456 Apr, [facility] [id number] [place] [address]- 6221 Apr, [facility] [address] [facility] [id number] [place] [address]- 5626 March, [facility] [address] [facility] [id number] [place] [address]- 5342 March, [facility] [address] [facility] [id number] [place] [address] 9152 March, [facility] [address] [facility] [id number] [place] [address]29 March, [facility] [address] [facility] [id number] [place] [address]- 7875 March, Sialadenitis 527.2 [facility] [address] [id number] [place] [address]- 8301 Feb, [facility] [address] [facility] [id number] [place] 1679 Feb, [facility] [address] [facility] [id number] [place] [address]- 2354 Feb, [facility] [address] [facility] [id number] [place] [address]- 7158 Feb, [facility] [address] [facility] [id number] [place] [address]- 6283 Feb, [facility] [address] [facility] [id number] [place] [address]- 1545 Jan, [facility] [id number] [place] [address]- 5372 Jan, [facility] [address] [facility] [id number] [place] [address]- 1917 Jan, [facility] [address] [facility] [id number] [place] [address]- 6701 Jan, [facility] [address] [facility] [id number] [place] [address]- 3632 Jan, [facility] [address] [facility] [id number], [place] [address]- 1494 Jan, [facility] [address] [facility] [id number], [place] [address]- 8904 Dec, [facility] [address] [facility] [id number] [place] 3635 Dec, [facility] [address] [facility] [id number], [place] [address]- 8007 Dec, [facility] [address] [facility] [id number], [place] [address]- 1646 Dec, [facility] [place] [facility] [address] [id number] [place] [address]- 6675 Dec, [facility] [place] [facility] [address] [id number] [place] [address]- 7284 Dec, [facility] [place] [facility] [address] [id number] [place] [address]- 7916 Nov, [facility] [place] [facility] [address] [id number] [place] [address]- 9065 Nov, [facility] [place] [facility] [address] [id number] [place] [address]- 0072 Nov, [facility] [place] [facility] [address] [id number] [place] [address]- 9915 Nov, [facility] [place] [facility] [address] [id number] [place] [address]- 9848 Nov, [facility] [place] [facility] [address] [id number] [place] [address]- 8514 Nov, [facility] [place] [facility] [address] [id number] [place] [address]- 4084 Nov, [facility] [place] [facility] [address] [id number] [place] [address]- 4510 Nov, [facility] [place] [facility] [address] [id number] [place] [address]- 8647 Nov, [facility] [place] [facility] [address] [id number] [place] [address]- 8061 Nov, [facility] [place] [facility] [address] [id number] [place] [address]- 4536 Nov, [facility] [place] [facility] [address] [id number] [place] [address]- 5832 Nov, [facility] [place] [facility] [address] [id number] [place] [address]- 8226 Nov, [facility] [place] [facility] [address] [id number] [place] [address]- 9613 Nov, [facility] [place] [facility] [address] [id number] [place] [address]- 3846 Oct, [facility] [place] [facility] [address] [id number] [place] 1409 Oct, [facility] [place] [facility] [address] [id number] [place] [address]- 6714 Oct, [facility] [place] [facility] [address] [id number] [place] [address]- 8293 Oct, [facility] [place] [facility] [address] [id number] [place] [address]- 3861 Oct, [facility] [place] [facility] [address] [id number] [place] [address]- 9183 Oct, [facility] [place] [facility] [address] [id number] [place] [address]- 0417 Oct, [facility] [place] [facility] [address] [id number] [place] [address]- 5880 Oct, [facility] [place] [facility] [address] [id number] [place] [address]- 6460 Oct, [facility] [place] [facility] [address] [id number] [place] [address]- 7579 Sep, [facility] [place] [facility] [address] [id number] [place] [address]- 8247 Sep, [facility] [place] [facility] [address] [id number] [place] [address]- 2243 Sep, [facility] [place] [facility] [address] [id number] [place] [address]- 7628 Sep, [facility] [place] [facility] [address] [id number] [place] [address] Sep, [facility] [place] [facility] [address] [id number] [place] [address] Sep, [facility] [place] [facility] [address] [id number] [place] [address] Sep, [facility] [place] [facility] [address] [id number] [place] [address] Sep, [facility] [place] [facility] [address] [id number] [place] [address] Sep, [facility] [place] [facility] [address] [id number] [place] [address] Sep, [facility] [place] [facility] [address] [id number] [place] [address] Sep, [facility] [place] [facility] [address] [id number] [place] [address] Sep, [facility] [place] [facility] [address] [id number] [place] [address] Aug, [facility] [place] [facility] [address] [id number] [place] [address]- [address] Aug, [facility] [place] [facility] [address] [id number] [place] [address] Aug, [facility] [place] [facility] [address] [id number] [place] [address] Aug, [facility] [place] [facility] [address] [id number] [place] [address]- [address] Aug, [facility] [place] [facility] [address] [id number] [place] [address] Aug, [facility] [place] [facility] [address] [id number] [place] [address] Aug, [facility] [place] [facility] [address] [id number] [place] [address] Aug, [facility] [place] [facility] [address] [id number] [place] [address] 30 Jul, 2014 [facility] [place] [facility] [address] [id number] [place] [address] 30 Jul, 2014 [facility] [place] [facility] [address] [id number] [place] [address]- [address] 30 Jul, 2013 [facility] [place] [facility] [address] [id number] [place] [address] 30 Jul, 2013 [facility] [place] [facility] [address] [id number] [place] [address] 25 Jul, 2013 [facility] [place] [facility] [address] [id number] [place] [address]- [address] 25 Jul, 2013 [facility] [place] [facility] [address] [id number] [place] [address]- [address] 15 Jul, 2014 [facility] [place] [facility] [address] [id number] [place] [address]- [address] 15 Jul, 2014 [facility] [place] [facility] [address] [id number] [place] [address] Jul, [facility] [place] [facility] [address] [id number] [place] [address] Jul, [facility] [place] [facility] [address] [id number] [place] [address] Jun, [facility] [place] [facility] [address] [id number] [place] [address] Jun, [facility] [place] [facility] [address] [id number] [place] [address] Jun, [facility] [place] [facility] [address] [id number] [place] [address] Jun, [facility] [place] [facility] [address] [id number] [place] [address]- [address] Jun, [facility] [place] [facility] [address] [id number] [place] [address] Jun, [facility] [place] [facility] [address] [id number] [place] [address] Jun, [facility] [place] [facility] [address] [id number] [place] [address] Jun, [facility] [place] [facility] [address] [id number] [place] [address]- [address] Jun, [facility] [place] [facility] [address] [id number] [place] [address]- [address] Jun, [facility] [place] [facility] [address] [id number] [place] [address] Jun, [facility] [place] [facility] [address] [id number] [place] [address] Jun, [facility] [place] [facility] [address] [id number] [place] [address]- [address] Jun, [facility] [place] [facility] [address] [id number] [place] [address]- [address] Jun, [facility] [place] [facility] [address] [id number] [place] [address]- [address] Jun, [facility] [place] [facility] [address] [id number] [place] [address]- [address] Jun, [facility] [place] [facility] [address] [id number] [place] [address]- [address] Jun, [facility] [place] [facility] [address] [id number] [place] [address] Jun, [facility] [place] [facility] [address] [id number] [place] [address] 2925 Jun, [facility] [place] [facility] [address] [id number] [place] [address] 7431 Jun, [facility] [place] [facility] [address] [id number] [place] [address] 5[address] Jun, [facility] [place] [facility] [address] [id number] [place] [address] 7756 Jun, [facility] [place] [facility] [address] [id number] [place] [address] 9148 May, [facility] [place] [facility] [address] [id number] [place] [address] 75[address] May, [facility] [place] [facility] [address] [id number] [place] [address] 9722 May, [facility] [place] [facility] [address] [id number] [place] [address] 8307 May, [facility] [place] [facility] [address] [id number] [place] [address]- 4098 May, [facility] [place] [facility] [address] [id number] [place] [address]- 5225 May, [facility] [place] [facility] [address] [id number] [place] [address] 2472 May, [facility] [place] [facility] [address] [id number] [place] [address]- 9158 May, [facility] [place] [facility] [address] [id number] [place] [address] 6797 May, [facility] [place] [facility] [address] [id number] [place] [address]- 5828 May, [facility] [place] [facility] [address] [id number] [place] [address]- 6926 May, [facility] [place] [facility] [address] [id number] [place] [address]- 5240 May, [facility] [place] [facility] [address] [id number] [place] [address]- 1016 May, [facility] [place] [facility] [address] [id number] [place] [address]- 2300 Apr, [facility] [place] [facility] [address] [id number] [place] [address]- 3980 Apr, [facility] [place] [facility] [address] [id number] [place] [address]- 3251 Apr, [facility] [place] [facility] [address] [id number] [place] [address]- 3704 Apr, [facility] [place] [facility] [address] [id number] [place] [address]- 7249 Apr, [facility] [place] [facility] [address] [id number] [place] [address]- 8727 Apr, [facility] [place] [facility] [address] [id number] [place] [address]- 6610 Apr, [facility] [place] [facility] [address] [id number] [place] [address]- 7896 Apr, [facility] [place] [facility] [address] [id number] [place] [address]- 7191 Apr, [facility] [place] [facility] [address] [id number] [place] [address]- 3514 March, [facility] [place] [facility] [address] [id number] [place] [address]- 0782 March, [facility] [place] [facility] [address] [id number] [place] [address]- 3248 March, [facility] [place] [facility] [address] [id number] [place] [address]- 8757 March, [facility] [place] [facility] [address] [id number] [place] [address]- 9452 March, [facility] [place] [facility] [address] [id number] [place] [address]- 6802 March, [facility] [place] [facility] [address] [id number] [place] [address]- 3143 March, [facility] [place] [facility] [address] [id number] [place] [address]- 5787 March, [facility] [place] [facility] [address] [id number] [place] [address]- 3103 March, [facility] [place] [facility] [address] [id number] [place] [address]- 3875 March, [facility] [place] [facility] [address] [id number] [place] [address]- 5055 March, [facility] [place] [facility] [address] [id number] [place] [address]- 4754 March, [facility] [place] [facility] [address] [id number] [place] [address]- 0938 March, [facility] [place] [facility] [address] [id number] [place] [address] March, [facility] [place] [facility] [address] [id number] [place] [address]- 3983 March, [facility] [place] [facility] [address] [id number] [place] [address]- 0340 March, [facility] [place] [facility] [address] [id number] [place] [address]- 7186 March, [facility] [address] [id number] [place] [address]- 5892 March, [facility] [place] [facility] [address] [id number] [place] [address]- 8897 March, [facility] [place] [facility] [address] [id number] [place] [address]- [address] March, [facility] [place] [facility] [address] [id number] [place] [address]- 3353 Feb, [facility] [place] [facility] [address] [id number] [place] [address]- 7290 Feb, [facility] [place] [facility] [address] [id number] [place] [address]- 4969 Feb, [facility] [place] [facility] [address] [id number] [place] [address]- 5179 Feb, [facility] [place] [facility] [address] [id number] [place] [address]- 0488 Feb, [facility] [place] [facility] [address] [id number] [place] Feb, [facility] [place] [facility] [address] [id number] [place] [address]- 9951 Feb, [facility] [place] [facility] [address] [id number] [place] [address]- 5485 Feb, [facility] [place] [facility] [address] [id number] [place] [address]- 4936 Jan, [facility] [place] [facility] [address] [id number] [place] [address]- 4092 Jan, [facility] [place] [facility] [address] [id number] [place] [address]- 1118 Jan, [facility] [place] [facility] [address] [id number] [place] [address]- 7370 Jan, [facility] [place] [facility] [address] [id number] [place] [address]- 9769 Jan, [facility] [place] [facility] [address] [id number] [place] [address]- 3278 Jan, [facility] [place] [facility] [address] [id number] [place] [address]- 2436 Jan, [facility] [place] [facility] [address] [id number] [place] [address]- 8078 Jan, [facility] [place] [facility] [address] [id number] [place] [address]- 5595 Jan, [facility] [place] [facility] [address] [id number] [place] [address]- 0764 Jan, [facility] [place] [facility] [address] [id number] [place] [address] 1940 Dec, [facility] [place] [facility] [address] [id number] [place] [address]- 7454 Dec, [facility] [place] [facility] [address] [id number] [place] [address]- 1456 Dec, [facility] [place] [facility] [address] [id number] [place] [address]- 4486 2013 [facility] [place] [facility] [address] [id number] [place] [address] 0489 2013 [facility] [place] [facility] [address] [id number] [place] [address]- 2766 13 Dec, 2013 [facility] [place] [facility] [address] [id number] [place] [address]- 8416 Dec, [facility] [place] [facility] [address] [id number] [place] [address]- 2466 Dec, [facility] [place] [facility] [address] [id number] [place] [address]- 3698 Nov, [facility] [place] [facility] [address] [id number] [place] [address]- 5098 Nov, [facility] [place] [facility] [address] [id number] [place] [address]- 4078 Nov, [facility] [place] [facility] [address] [id number] [place] [address]- 1280 Nov, [facility] [place] [facility] [address] [id number] [place] [address]- 2786 Nov, [facility] [place] [facility] [address] [id number] [place] [address]- 4302 Nov, [facility] [place] [facility] [address] [id number] [place] [address]- 4123 Nov, [facility] [place] [facility] [address] [id number] [place] [address]- 4366 Nov, [facility] [place] [facility] [address] [id number] [place] [address]- 1923 Nov, [facility] [place] [facility] [address] [id number] [place] [address]- 3835 Nov, [facility] [place] [facility] [address] [id number] [place] [address]- 9792 Nov, [facility] [place] [facility] [address] [id number] [place] [address]- 0598 Nov, [facility] [address] [id number] [place] [address]- 7008 Nov, [facility] [address] [id number] [place] [address]- 2120 Oct, [facility] [address] [id number] [place] [address]- 4971 Oct, [facility] [address] [id number] [place] [address]- 9216 Oct, [facility] [address] [id number] [place] [address]- 7693 Oct, [facility] [address] [id number] [place] [address]- 3015 Oct, [facility] [address] [id number] [place] [address]- 4734 Oct, [facility] [address] [id number] [place] [address]- 5507 Oct, [facility] [address] [id number] [place] [address]- 1563 Oct, [facility] [address] [id number] [place] [address]- 1919 Oct, [facility] [address] [id number] [place] [address]- 7224 Oct, [facility] [address] [id number] [place] [address]- 9823 Oct, [facility] [place] [facility] [address] [id number] [place] [address]- 4222 Oct, [facility] [address] [id number] [place] [address]- 6677 Oct, [facility] [address] [id number], [place] [address]- 2913 Oct, [facility] [place] [facility] [address] [id number] [place] [address]- 3215 Sep, [facility] [place] [facility] [address] [id number] [place] [address]- 8538 Sep, [facility] [place] [facility] [address] [id number] [place] [address]- 0059 Sep, [facility] [place] [facility] [address] [id number], [place] [address]- 0767 Sep, [facility] [place] [facility] [address] [id number] [place] [address]- 9239 Sep, [facility] [place] [facility] [address] [id number] [place] [address]- 1898 Sep, [facility] [place] [facility] [address] [id number], [place] [address]- 7071 Sep, [facility] [place] [facility] [address] [id number], [place] [address]- 5953 Sep, [facility] [place] [facility] [address] [id number], [place] [address]- 9717 Sep, [facility] [place] [facility] [address] [id number], [place] [address]- 6409 Sep, [facility] [place] [facility] [address] [id number], [place] [address]- 6372 Aug, [facility] [place] [facility] [address] [id number], [place] [address]- 2154 Aug, [facility] [place] [facility] [address] [id number], [place] [address]- 6701 Aug, [facility] [place] [facility] [address] [id number], [place] [address]- 6688 Aug, [facility] [place] [facility] [address] [id number], [place] [address]- 0941 Aug, [facility] [place] [facility] [address] [id number] [place] [address]- 0077 23 Aug, 2012 [facility] [address] [id number] [place] [address]- 0452 23 Aug, 2012 [facility] [place] [facility] [address] [id number] [place] [address]- 2906 23 Aug, 2012 [facility] [address] [id number] [place] [address]- 0790 22 Aug, 2012 [facility] [place] [facility] [address] [id number] [place] [address]- 9971 22 Aug, 2012 [facility] [address] [id number] [place] [address]- 5358 18 Aug, 2012 [facility] [address] [id number] [place] [address]- 0898 18 Aug, 2012 [facility] [place] [facility] [address] [id number] [place] [address]- 9811 18 Aug, 2012 [facility] [address] [id number] [place] [address]- 6228 18 Aug, 2012 [facility] [place] [facility] [address] [id number] [place] [address]- 6359 17 Aug, 2012 [facility] [address] [id number] [place] [address]- 6734 14 Aug, 2013 [facility] [place] [facility] [address] [id number] [place] [address]- 2306 14 Aug, 2012 [facility] [place] [facility] [address] [id number] [place] [address]- 6284 Aug, 2012 [facility] [place] [facility] [address] [id number] [place] [address]- 7755 20 Jul, 2012 [facility] [place] [facility] [address] [id number] [place] [address]- 9189 19 Jul, 2012 [facility] [place] [facility] [address] [id number] [place] [address]- 0185 Jul, [facility] [place] [facility] [address] [id number] [place] [address]- 9506 Jul, [facility] [place] [facility] [address] [id number] [place] [address]- 2082 Jul, [facility] [place] [facility] [address] [id number] [place] [address]- 7126 Jun, [facility] [place] [facility] [address] [id number] [place] [address]- 6211 Jun, [facility] [place] [facility] [address] [id number] [place] [address]- 7126 Jun, [facility] [place] [facility] [address] [id number] [place] [address]- 7598 Jun, [facility] [place] [facility] [address] [id number] [place] [address]- 3419 Jun, [facility] [place] [facility] [address] [id number] [place] [address]- 5880 Jun, [facility] [place] [facility] [address] [id number] [place] [address]- 9826 Jun, [facility] [place] [facility] [address] [id number] [place] [address]- 3082 Jun, [facility] [place] [facility] [address] [id number] [place] [address]- 2331 Jun, [facility] [place] [facility] [address] [id number] [place] [address]- 6565 Jun, [facility] [place] [facility] [address] [id number] [place] [address]- 8026 May, [facility] [place] [facility] [address] [id number] [place] [address]- 2671 May, [facility] [place] [facility] [address] [id number] [place] [address]- 2616 May, [facility] [place] [facility] [address] [id number] [place] [address]- 1387 May, [facility] [address] [id number] [place] [address]- 9602 May, [facility] [place] [facility] [address] [id number] [place] [address]- 5589 May, [facility] [address] [id number] [place] [address]- 6254 May, [facility] [address] [id number] [place] [address]- 1405 May, [facility] [address] [id number] [place] [address]- 7265 May, [facility] [address] [id number] [place] [address]- 0537 Apr, [facility] [address] [id number] [place] [address]- 5660 Apr, [facility] [address] [id number] [place] [address]- 9414 Apr, [facility] [address] [id number] [place] [address]- 7917 Apr, [facility] [address] [id number] [place] [address]- 1064 Apr, [facility] [address] [id number] [place] [address]- 1776 Apr, [facility] [place] [facility] [address] [id number], [place] [address]- 7307 Apr, [facility] [place] [facility] [address] [id number] [place] [address]- 4868 March, [facility] [place] [facility] [address] [id number] [place] [address]- 6551 Feb, [facility] [place] [facility] [address] [id number] [place] [address]- 2492 Feb, [facility] [place] [facility] [address] [id number] [place] [address]- 0303 12 Feb, 2013 [facility] [place] [facility] [address] [id number] [place]592 28 Jan, 2013 [facility] [place] [facility] [address] [id number] [place] [address]- 6280 21 Jan, 2013 [facility] [place] [facility] [address] [id number] [place] [address]- 0552 19 Jan, 2013 [facility] [place] [facility] [address] [id number] [place] [address]- 5322 14 Jan, 2013 [facility] [place] [facility] [address] [id number] [place] [address]- 7379 12 Jan, 2013 [facility] [place] [facility] [address] [id number] [place] [address]- 4606 08 Jan, 2013 [facility] [place] [facility] [address] [id number] [place] [address]- 4561 07 Jan, 2013 [facility] [place] [facility] [address] [id number] [place] [address]- 6075 04 Jan, 2013 [facility] [place] [facility] [address] [id number] [place] [address]- 3516 28 Dec, 2012 [facility] [place] [facility] [address] [id number] [place] [address]- 0555 25 Dec, 2012 [facility] [place] [facility] [address] [id number] [place] [address]- 5882 13 Dec, 2012 [facility] [place] [facility] [address] [id number] [place] [address]- 9020 11 Dec, 2012 [facility] [place] [facility] [address] [id number] [place] [address]90 07 Dec, 2012 [facility] [place] [facility] [address] [id number] [place] [address]- 2994 06 Dec, 2012 [facility] [place] [facility] [address] [id number], [place] [address]- 3871 05 Dec, 2012 [facility] [address] [id number] [place] [address]- 0500 Nov, [facility] [place] [facility] [address] [id number] [place] [address]- 7766 24 Nov, 2012 [facility] [address] [id number] [place] [address]- 7473 18 Nov, 2012 [facility] [address] [id number] [place] [address]- 0658 15 Nov, 2012 [facility] [address] [id number] [place] [address]- 0195 Nov, [facility] [address] [id number] [place] [address]- 0157 Nov, [facility] [address] [facility] [id number] [place] [address]- 1349 Nov, [facility] [address] [id number] [place] [address]- 1254 Oct, [facility] [address] [id number] [place] [address]- 6172 Oct, [facility] [address] [facility] [id number] [place] [address]- 1978 Oct, [facility] [address] [id number] [place] [address]- 9150 Oct, [facility] [place] [facility] [address] [id number] [place] [address]- 6202 Oct, [facility] [place] [facility] [address] [id number] [place] [address]- 0880 Oct, [facility] [place] [facility] [address] [id number] [place] [address]- 7812 Oct, [facility] [place] [facility] [address] [facility] [id number] [place] [address]- 0414 Oct, [facility] [place] [facility] [address] [id number] [place] [address] Oct, [facility] [place] [facility] [address] [id number] [place] [address] Oct, [facility] [place] [facility] [address] [id number] [place] [address] Oct, [facility] [place] [facility] [address] [id number] [place] [address] Oct, [facility] [place] [facility] [address] [id number] [place] [address] Sep, [facility] [place] [facility] [address] [id number] [place] [address] Sep, [facility] [place] [facility] [address] [id number] [place] [address] Sep, [facility] [place] [facility] [address] [id number] [place] [address] Sep, [facility] [place] [facility] [address] [id number] [place] [address] Sep, [facility] [place] [facility] [address] [id number] [place] [address] Sep, [facility] [place] [facility] [address] [facility] [id number] [place] [address] Sep, [facility] [place] [facility] [address] [id number] [place] [address] Sep, [facility] [place] [facility] [address] [id number] [place] [address] Sep, [facility] [place] [facility] [address] [id number] [place] [address] Sep, [facility] [place] [facility] [address] [id number] [place] [address] Sep, [facility] [place] [facility] [address] [id number] [place] [address] Aug, [facility] [place] [facility] [address] [id number] [place] [address] Aug, [facility] [place] [facility] [address] [id number] [place] [address] Aug, [facility] [place] [facility] [address] [id number] [place] [address] Aug, [facility] [place] [facility] [address] [id number] [place] [address] Aug, [facility] [place] [facility] [address] [id number] [place] [address] Aug, [facility] [place] [facility] [address] [id number] [place] [address] Aug, [facility] [place] [facility] [address] [id number] [place] [address] 4468 Aug, [facility] [place] [facility] [address] [id number] [place] [address] Aug, [facility] [place] [facility] [address] [id number] [place] [address] Aug, [facility] [place] [facility] [address] [id number] [place] [address] Jul, [facility] [place] [facility] [address] [id number], [place] [address] 20 Jul, 2012 [facility] [place] [facility] [address] [id number], [place] [address] 10 Jul, 2012 [facility] [place] [facility] [address] [id number] [place] [address]- [address] 06 Jul, 2012 [facility] [place] [facility] [address] [id number], [place] [address] 30 Jun, 2012 [facility] [place] [facility] [address] [id number] [place] [address] Jun, [facility] [place] [facility] [address] [id number] [place] [address] 16 Jun, 2012 [facility] [place] [facility] [address] [id number] [place] [address] Jun, [facility] [place] [facility] [address] [id number] [place] [address] Jun, [facility] [place] [facility] [address] [id number] [place] [address] Jun, [facility] [place] [facility] [address] [id number] [place] [address] Jun, [facility] [place] [facility] [address] [id number] [place] [address] May, [facility] [place] [facility] [address] [id number] [place] [address] May, [facility] [place] [facility] [address] [id number] [place] [address] May, [facility] [place] [facility] [address] [id number] [place] [address] May, [facility] [place] [facility] [address] [id number] [place] [address] May, [facility] [place] [facility] [address] [id number] [place] [address] 67[address] Apr, [facility] [place] [facility] [address] [id number] [place] [address] Apr, [facility] [place] [facility] [address] [id number] [place] [address] Apr, [facility] [place] [facility] [address] [id number] [place] [address]284 Apr, [facility] [place] [facility] [address] [id number] [place] [address]- [address]267 Apr, [facility] [place] [facility] [address] [id number] [place] [address] March, [facility] [place] [facility] [address] [id number] [place] [address] 60[address] March, [facility] [address] [id number] [place] [address]- 69[address] March, [facility] [address] [id number] [place] [address] 77[address] March, [facility] [address] [id number] [place] [address] March, [facility] [address] [id number] [place] [address] March, [facility] [address] [id number] [place] [address] March, [facility] [address] [id number] [place] [address] 04[address] March, [facility] [address] [id number] [place] [address] March, [facility] [address] [id number] [place] [address] 67[address] March, [facility] [address] [id number] [place] [address] 30 Feb, 2012 [facility] [place] [facility] [address] [id number] [place] [address] Feb, [facility] [place] [facility] [address] [id number] [place] [address] Feb, [facility] [place] [facility] [address] [id number] [place] [address] 1674 Feb, [facility] [place] [facility] [address] [id number] [place] [address] 275[address] Feb, [facility] [place] [facility] [address] [id number] [place] [address] 4768 Feb, [facility] [place] [facility] [address] [id number] [place] [address]646 Feb, [facility] [address] [id number] [place] [address] 3369 Feb, [facility] [place] [facility] [address] [id number] [place] [address]- 6[address] Feb, [facility] [place] [facility] [address] [id number] [place] [address]- 4837 Jan, [facility] [place] [facility] [address] [id number] [place] [address]- [address]248 Jan, [facility] [address] [id number] [place] [address]- 116[address] Jan, [facility] [place] [facility] [address] [id number] [place] [address]- 1742 Jan, [facility] [address] [id number] [place] [address]- 5045 Dec, [facility] [place] [facility] [address] [id number] [place] [address] Dec, [facility] [address] [id number] [place] [address] Nov, [facility] [place] [facility] [address] [id number] [place] [address] Nov, [facility] [address] [id number] [place] [address] Nov, [facility] [place] [facility] [address] [id number] [place] [address] Nov, [facility] [place] [facility] [address] [id number] [place] [address] Nov, [facility] [place] [facility] [address] [id number] [place] [address] Oct, [facility] [place] [facility] [address] [id number] [place] [address] Oct, [facility] [place] [facility] [address] [facility] [id number] [address] Oct, [facility] [address] [id number] [address] Oct, [facility] [address] [id number], [place] [address] Oct, [facility] [address] [id number], [place] [address] Oct, [facility] [address] [id number], [place] [address] Oct, [facility] [address] [id number], [place] [address] Oct, [facility] [address] [id number], [place] [address] Sep, IMMUNIZATIONS No Known Immunizations SOCIAL HISTORY Never Assessed REASON FOR VISIT Controlled Med Refill PLAN OF CARE VITAL SIGNS MEDICATIONS Medication Instructions Dosage Frequency Start Date End Date Duration Status Lorazepam 0.5 MG Orally Once a day at bedtime 1 tablet Apr, Active RESULTS No Results PROCEDURES No Known procedures INSTRUCTIONS MEDICATIONS ADMINISTERED No Known Medications MEDICAL (GENERAL) HISTORY Type Description Date 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
--- OUTSIDE RECORDS SUMMARY | 2018-09-04 11:28 | XMS REPORT ---
Author Author SHAHNAZ MARQUEZ 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 [id number] [address] 20 Jul, 2018 [facility] [address] [place] [id number] 17 Jul, 2018 [facility] [address] [id number] [address] 11 Jul, 2018 Other chronic pain G89.29 [facility] [address] [id number] [address] Jul, [facility] [address] [id number] [address] Jul, [facility] [address] [place] [id number] Jun, 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 [place] [id number] [place] [address]692- 1219 Jun, Other chronic pain G89.29 [address] [address] [facility] [id number], [place] [address] Jun, [facility] [address] [place] [id number] May, Anxiety F41.9 ; Type 2 diabetes mellitus without complication, without long-term current use of insulin E11.9 ; Hypertension I10 ; Low back pain M54.5 ; Paroxysmal atrial fibrillation I48.0 and 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 [address] [facility] [id number], [place] [address] May, Other chronic pain G89.29 [facility] [address] [place] [id number] May, Low back pain M54.5 [place] [id number] [place] [address] 40557- 1718 May, [place] [address] [facility] [id number] [place] [address] 47958- 6474 Apr, Other chronic pain G89.29 [place] [address] [facility] [id number] [place] [address] 34578- 0778 Apr, [place] [address] [facility] [id number] [place] [address] 61686- 9661 Apr, [facility] [address] [place] [id number] Apr, Closed compression fracture of L3 lumbar vertebra with routine healing, subsequent encounter S32.030D [facility] [address] [place] [id number] Apr, Low back pain M54.5 [facility] [address] [place] [id number] Apr, Coccydynia M53.3 [place] [id number] [address] March, [facility] [address], [place] [address] March, Other chronic pain G89.29 [facility] [address] [id number] [address]26 March, [facility] [address], [place] [address] 6377 March, [facility] [id number] [address] 9678 Feb, [facility] [address], [place] [address] 18[address] Feb, Other chronic pain G89.29 [facility] [employer] [address] [place] [id number] Feb, Other chronic pain G89.29 and Anxiety F41.9 [facility] [address], [place] [address] 0158 Feb, [facility] [address], [place] [address] 0330 Jan, [facility] [address] [id number] [address] 2029 Jan, [facility] [id number] [address] 5327 Jan, [facility] [id number] [address] 5082 Jan, 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 ADRIENNE SANCHEZ [id number] [place] [address] Nov [facility] [id number] [id number] Nov, Anxiety F41.9 [facility] [address] [address] Nov, [facility] [id number] [place] [id number] Nov, Anxiety F41.9 [facility] [address] [place] [id number] Nov, Status post surgery Z98.890 ; Confused R41.0 ; Anxiety F41.9 and Other chronic pain G89.29 [facility] [id number] [id number] Nov, Other chronic pain G89.29 [facility] [id number] [place] [address] [id number]- 6660 Oct, [facility] [id number] [place] [address] [id number] Oct, Other chronic pain G89.29 [facility] [id number] [address] Oct, Anxiety F41.9 [facility] [id number] [place] [address] [id number] Sep, Other chronic pain G89.29 [facility] [id number] [address] Sep, [facility] [address] [place] [id number] Aug, Dysuria R30.0 and Anxiety F41.9 [facility] [id number] [address] Aug, [facility] [address] [id number] [id number] Aug, Other chronic pain G89.29 [facility] [id number] [address]58 Jul, Other chronic pain G89.29 [facility] [id number] [address] Jun, [facility] [id number] [place] [address] [id number] Jun, Other chronic pain G89.29 [facility] [address] [address] Jun, [facility] [id number] [place] [address] [id number]- 1796 May, Other chronic pain G89.29 [facility] [address] [address] Apr, Other chronic pain G89.29 [facility] [address] [place] [id number] Apr, Reactive depression F32.9 and Pharyngeal dysphagia R13.13 [facility] [address] [place] [address] 68157- 5485 Apr, Urinary tract infection without hematuria, site unspecified N39.0 [facility] [id number], [place] [address] 3294 March, Other chronic pain G89.29 [facility] [id number] [address] 4755 Feb, Other chronic pain G89.29 [facility] [id number], [place] [address] 2755 Feb, [facility] [id number] [place] [address] [id number] Feb, [facility] [address] [place] [id number] Feb, Dysuria R30.0 and Ventral hernia without obstruction or gangrene K43.9 [facility] [address] [address]- 6163 Jan, Other chronic pain G89.29 [facility] [id number] [place] [address] [id number] Dec, Other chronic pain G89.29 [facility] [address] [place] [address] 14322- 7412 Nov, Other chronic pain G89.29 [facility] [employer] [address] [place] [id number] Nov, Lymphadenitis I88.9 [facility] [id number] [place] [address] 11387- 4922 Nov, Other chronic pain G89.29 [facility] [id number] [place] [address] 03833- 7047 Nov, [facility] [id number] [place] [address] [id number] Nov, Other chronic pain G89.29 [facility] [employer] [address] [place] [id number] Oct, Low back pain M54.5 ; Hypertension I10 and Type 2 diabetes mellitus without complication, without long-term current use of insulin E11.9 [facility] [address], [place] [address]- 2079 Oct, [facility] [address] [place] [address] 98719- 3967 Oct, [facility] [address] [place] [address] 68836- 2199 Oct, [facility] [id number] [place] [address] 22207- 6431 Oct, [facility] [address] [place] [address] 28276- 2164 Sep, [facility] [id number] [place] [address] 59399- 9275 Sep, [facility] [address] [facility] [id number] [address]- 5949 Aug, Other chronic pain G89.29 [facility] [address] [facility] [id number], [place] [address]- 8164 Jul, [facility] [address] [place] [address] 99396- 0751 Jul, [facility] [address] [place] [address] 67512- 8224 Jul, [facility] [id number] [place] [address] 96389- 7327 Jun, [facility] [id number] [place] [address] 32726- 3922 Jun, [facility] [address] [place] [id number] Jun, Low back pain M54.5 ; Other chronic pain G89.29 and Coronary artery disease I25.10 [facility] [address], [place] [address]- 9652 Jun, [facility] [id number] [place] [address] 79586- 6944 May, [facility] [address], [place] [address]- 3136 May, [facility] [address] [address]- 9258 May, Other chronic pain G89.29 [facility] [address] [facility] [id number], [place] [address]- 1036 May, [facility] [address] [place] [address] 45747- 9806 Apr, [facility] [address] [address]- 5413 Apr, Acute cystitis without hematuria N30.00 [facility] [address], [place] [address]- 0108 16 Apr, 2016 Acute cystitis without hematuria N30.00 ; Coronary artery disease I25.10 ; Low back pain M54.5 and Other chronic pain G89.29 [facility] [address] [address]- 6046 13 Apr, 2016 Other chronic pain G89.29 [facility] [id number] [place] [address] 09439- 8012 March, Other chronic pain G89.29 [facility] [id number] [place] [address] 47225- 0776 18 Feb, 2016 [facility] [id number] [place] [address] 09911- 6601 15 Feb, 2016 Arthritis M19.90 [facility] [id number] [place] [address] 34695- 3374 Feb, [facility] [id number] [place] [address] 42806- 0368 Jan, [facility] [id number] [place] [address] 95032- 9133 Jan, [facility] [address] [address]- 5208 Jan, Other chronic pain G89.29 [facility] [id number] [place] [address] 44013 2544 Jan, Hypertension I10 ; Coronary artery disease I25.10 and Insomnia G47.00 [facility] [address] [address]- 6656 Jan, [facility] [id number] [place] [address] 46590- 4804 Dec, Right hip pain M25.551 [facility] [id number] [address]- 1116 Dec, [facility] [address], [place] [address]- 1945 Dec, [facility] [address], [place] [address]- 1186 Dec, [facility] [address] [address]- 3236 Dec, Other chronic pain G89.29 [facility] [id number] [place] [address] 56314- 8854 Dec, [facility] [address] [address]- 9608 Nov, [facility] [address] [place] [address] 22437- 5165 Nov, Other chronic pain G89.29 [facility] [address] [place] [address] 70227- 9542 Nov, Right hip pain M25.551 and Coronary artery disease I25.10 [facility] [address] [address]- 5094 Nov, Other chronic pain G89.29 [facility] [address] [address]- 2692 Oct, [facility] [address], [place] [address]- 2253 Oct, [facility] [address], [place] [address]- 1820 Sep, [facility] [address] [address]- 2488 Sep, [facility] [address], [place] [address]- 4041 Aug, [facility] [address] [address]- 9865 Aug, Hypertension I10 ; Coronary artery disease I25.10 and Arthritis M19.90 [facility] [address] [id number] [place] [address]- 6531 Jun, [facility] [address] [id number] [place] [address]- 5084 Jun, Essential hypertension, benign 401.1 ; Other chronic pain 338.29 and Chronic airway obstruction, not elsewhere classified 496 [facility] [address] [id number] [place] [address]- 6360 Jun, [facility] [address] [id number] [place] [address]- 3426 Jun, [facility] [address] [facility] [id number] [place] [address]- 4068 Jun, [facility] [address] [facility] [id number] [place] [address]- 8194 May, [facility] [id number] [place] [address]- 9413 May, [facility] [address] [facility] [id number] [place] [address]- 2239 Apr, [facility] [address] [facility] [id number] [place] [address]- 0306 Apr, [facility] [id number] [place] [address]- 0409 Apr, [facility] [address] [facility] [id number] [place] [address]- 3478 March, [facility] [address] [facility] [id number] [place] [address]- 7942 March, [facility] [address] [facility] [id number] [place] [address] 4709 March, [facility] [address] [facility] [id number] [place] 0299 March, [facility] [address] [facility] [id number] [place] [address]- 6898 March, Sialadenitis 527.2 [facility] [address] [id number] [place] [address]- 0734 Feb, [facility] [address] [facility] [id number] [place]- 3599 Feb, [facility] [address] [facility] [id number] [place] [address]- 9677 Feb, [facility] [address] [facility] [id number] [place] [address]- 6367 Feb, [facility] [address] [facility] [id number] [place] [address]- 9496 Feb, [facility] [address] [facility] [id number] [place] [address] Jan, [facility] [address] [id number] [place] [address] Jan, [facility] [address] [facility] [id number] [place] [address] Jan, [facility] [address] [facility] [id number] [place] [address] Jan, [facility] [address] [facility] [id number] [place] [address] Jan, [facility] [address] [facility] [id number], [place] [address] Jan, [facility] [address] [facility] [id number], [place] [address] Dec, [facility] [address] [facility] [id number] [place] [address] Dec, [facility] [address] [facility] [id number], [place] [address] Dec, [facility] [address] [facility] [id number], [place] [address] Dec, [facility] [place] [facility] [address] [id number] [place] [address] Dec, [facility] [place] [facility] [address] [id number] [place] [address] Dec, [facility] [place] [facility] [address] [id number] [place] [address] Nov, [facility] [place] [facility] [address] [id number] [place] [address] Nov, [facility] [place] [facility] [address] [id number] [place] [address] Nov, [facility] [place] [facility] [address] [id number] [place] [address] Nov, [facility] [place] [facility] [address] [id number] [place] [address] Nov, [facility] [place] [facility] [address] [id number] [place] [address] Nov, [facility] [place] [facility] [address] [id number] [place] [address] Nov, [facility] [place] [facility] [address] [id number] [place] [address] Nov, [facility] [place] [facility] [address] [id number] [place] [address] Nov, [facility] [place] [facility] [address] [id number] [place] [address] Nov, [facility] [place] [facility] [address] [id number] [place] [address] Nov, [facility] [place] [facility] [address] [id number] [place] [address] Nov, [facility] [place] [facility] [address] [id number] [place] [address]- [address] Nov, [facility] [place] [facility] [address] [id number] [place] [address] Nov, [facility] [place] [facility] [address] [id number] [place] [address] Oct, [facility] [place] [facility] [address] [id number] [place] Oct, [facility] [place] [facility] [address] [id number] [place] [address] Oct, [facility] [place] [facility] [address] [id number] [place] [address] Oct, [facility] [place] [facility] [address] [id number] [place] [address] Oct, [facility] [place] [facility] [address] [id number] [place] [address] Oct, [facility] [place] [facility] [address] [id number] [place] [address] Oct, [facility] [place] [facility] [address] [id number] [place] [address] Oct, [facility] [place] [facility] [address] [id number] [place] [address]- [address] Oct, [facility] [place] [facility] [address] [id number] [place] [address]- [address] Sep, [facility] [place] [facility] [address] [id number] [place] [address] Sep, [facility] [place] [facility] [address] [id number] [place] [address] Sep, [facility] [place] [facility] [address] [id number] [place] [address] Sep, [facility] [place] [facility] [address] [id number] [place] [address]- [address] Sep, [facility] [place] [facility] [address] [id number] [place] [address]- [address] Sep, [facility] [place] [facility] [address] [id number] [place] [address]- [address] Sep, [facility] [place] [facility] [address] [id number] [place] [address] Sep, [facility] [place] [facility] [address] [id number] [place] [address] Sep, [facility] [place] [facility] [address] [id number] [place] [address] 4[address] Sep, [facility] [place] [facility] [address] [id number] [place] [address] 45[address] Sep, [facility] [place] [facility] [address] [id number] [place] [address] 4465 Sep, [facility] [place] [facility] [address] [id number] [place] [address] 2807 Aug, [facility] [place] [facility] [address] [id number] [place] [address] 6831 Aug, [facility] [place] [facility] [address] [id number] [place] [address] 5316 Aug, [facility] [place] [facility] [address] [id number] [place] [address] 8192 Aug, [facility] [place] [facility] [address] [id number] [place] [address] 7791 Aug, [facility] [place] [facility] [address] [id number] [place] [address] 9189 Aug, [facility] [place] [facility] [address] [id number] [place] [address]- 8643 Aug, [facility] [place] [facility] [address] [id number] [place] [address] Aug, [facility] [place] [facility] [address] [id number] [place] [address]- 8168 30 Jul, 2014 [facility] [place] [facility] [address] [id number] [place] [address]- 4355 30 Jul, 2014 [facility] [place] [facility] [address] [id number] [place] [address]- 6772 30 Jul, 2013 [facility] [place] [facility] [address] [id number] [place] [address]- 2974 30 Jul, 2013 [facility] [place] [facility] [address] [id number] [place] [address]- 8140 25 Jul, 2013 [facility] [place] [facility] [address] [id number] [place] [address]- 4343 25 Jul, 2013 [facility] [place] [facility] [address] [id number] [place] [address]- 3426 15 Jul, 2014 [facility] [place] [facility] [address] [id number] [place] [address]- 4188 15 Jul, 2014 [facility] [place] [facility] [address] [id number] [place] [address]- 5624 Jul, [facility] [place] [facility] [address] [id number] [place] [address]- 5208 Jul, [facility] [place] [facility] [address] [id number] [place] [address]- 3266 Jun, [facility] [place] [facility] [address] [id number] [place] [address]- 8202 Jun, [facility] [place] [facility] [address] [id number] [place] [address]- 1263 Jun, [facility] [place] [facility] [address] [id number] [place] [address]- 7418 Jun, [facility] [place] [facility] [address] [id number] [place] [address]- 5425 Jun, [facility] [place] [facility] [address] [id number] [place] [address]- 9598 Jun, [facility] [place] [facility] [address] [id number] [place] [address]- 3763 Jun, [facility] [place] [facility] [address] [id number] [place] [address]- 4964 Jun, [facility] [place] [facility] [address] [id number] [place] [address]- 3572 Jun, [facility] [place] [facility] [address] [id number] [place] [address]- 3785 Jun, [facility] [place] [facility] [address] [id number] [place] [address]- 4831 Jun, [facility] [place] [facility] [address] [id number] [place] [address]- 4290 Jun, [facility] [place] [facility] [address] [id number] [place] [address]- 1013 Jun, [facility] [place] [facility] [address] [id number] [place] [address]- 9750 Jun, [facility] [place] [facility] [address] [id number] [place] [address]- 1898 Jun, [facility] [place] [facility] [address] [id number] [place] [address] 1958 Jun, [facility] [place] [facility] [address] [id number] [place] [address]- 5243 Jun, [facility] [place] [facility] [address] [id number] [place] [address]- 5888 Jun, [facility] [place] [facility] [address] [id number] [place] [address]- 3971 Jun, [facility] [place] [facility] [address] [id number] [place] [address]- 3646 Jun, [facility] [place] [facility] [address] [id number] [place] [address]- 9893 Jun, [facility] [place] [facility] [address] [id number] [place] [address]- 1883 Jun, [facility] [place] [facility] [address] [id number] [place] [address]- 5573 May, [facility] [place] [facility] [address] [id number] [place] [address] 1668 May, [facility] [place] [facility] [address] [id number] [place] [address]- 7004 May, [facility] [place] [facility] [address] [id number] [facility] [place] [address]- 6571 May, [facility] [place] [facility] [address] [id number] [place] [address]- 7917 May, [facility] [place] [facility] [address] [id number] [place] [address]- 8409 May, [facility] [place] [facility] [address] [id number] [place] [address]- 7572 May, [facility] [place] [facility] [address] [id number] [place] [address] 1938 May, [facility] [place] [facility] [address] [id number] [place] [address]- 8960 May, [facility] [place] [facility] [address] [id number] [place] [address]- 7935 May, [facility] [place] [facility] [address] [id number] [place] [address]- 9363 May, [facility] [place] [facility] [address] [id number] [place] [address]- 4118 May, [facility] [place] [facility] [address] [id number] [place] [address]- 7405 May, [facility] [place] [facility] [address] [id number] [place] [address] 4561 Apr, [facility] [place] [facility] [address] [id number] [place] [address]- 3653 Apr, [facility] [place] [facility] [address] [id number] [place] [address]- 9734 Apr, [facility] [place] [facility] [address] [id number] [place] [address]- 4208 Apr, [facility] [place] [facility] [address] [id number] [place] [address]- 8746 Apr, [facility] [place] [facility] [address] [id number] [place] [address]- 9725 Apr, [facility] [place] [facility] [address] [id number] [place] [address]- 9795 Apr, [facility] [place] [facility] [address] [id number] [place] [address]- 6877 Apr, [facility] [place] [facility] [address] [id number] [place] [address]- 6485 Apr, [facility] [place] [facility] [address] [id number] [place] [address]- 8450 March, [facility] [place] [facility] [address] [id number] [place] [address]- 6391 March, [facility] [place] [facility] [address] [id number] [place] [address]- 2418 March, [facility] [place] [facility] [address] [id number] [place] [address]- 6496 March, [facility] [place] [facility] [address] [id number] [place] [address]- 9818 March, [facility] [place] [facility] [address] [id number] [place] [address]- 1579 March, [facility] [place] [facility] [address] [id number] [place] [address]- 2901 March, [facility] [place] [facility] [address] [id number] [place] [address]- 1388 March, [facility] [place] [facility] [address] [id number] [place] [address]- 6588 March, [facility] [place] [facility] [address] [id number] [place] [address]- 5247 March, [facility] [place] [facility] [address] [id number] [place] [address]- 2563 March, [facility] [place] [facility] [address] [id number] [place] [address]- 6351 March, [facility] [place] [facility] [address] [id number] [place] [address]- 0814 March, [facility] [place] [facility] [address] [id number] [place] [address] March, [facility] [place] [facility] [address] [id number] [place] [address]- 2924 March, [facility] [place] [facility] [address] [id number] [place] [address]- 0335 March, [facility] [place] [facility] [address] [id number] [place] [address]- 0371 March, [facility] [address] [id number] [place] [address]- 4740 March, [facility] [place] [facility] [address] [id number] [place] [address]- 9133 March, [facility] [place] [facility] [address] [id number] [place] [address]- 7584 March, [facility] [place] [facility] [address] [id number] [place] [address]- 7022 Feb, [facility] [place] [facility] [address] [id number] [place] [address]- 3226 Feb, [facility] [place] [facility] [address] [id number] [place] [address]- 9692 Feb, [facility] [place] [facility] [address] [id number] [place] [address]- 9216 Feb, [facility] [place] [facility] [address] [id number] [place] [address]- 4886 Feb, [facility] [place] [facility] [address] [id number] [place] Feb, [facility] [place] [facility] [address] [id number] [place] [address]- 7275 Feb, [facility] [place] [facility] [address] [id number] [place] [address]- 3196 Feb, [facility] [place] [facility] [address] [id number] [place] [address]- 4934 Jan, [facility] [place] [facility] [address] [id number] [place] [address]- 2772 Jan, [facility] [place] [facility] [address] [id number] [place] [address]- 9601 Jan, [facility] [place] [facility] [address] [id number] [place] [address]- 9525 Jan, [facility] [place] [facility] [address] [id number] [place] [address]- 7155 Jan, [facility] [place] [facility] [address] [id number] [place] [address]- 3327 Jan, [facility] [place] [facility] [address] [id number] [place] [address]- 6446 Jan, [facility] [place] [facility] [address] [id number] [place] [address]- 1699 Jan, [facility] [place] [facility] [address] [id number] [place] [address]- 9897 Jan, [facility] [place] [facility] [address] [id number] [place] [address]- 2460 Jan, [facility] [place] [facility] [address] [id number] [place] [address]- 9140 Dec, [facility] [place] [facility] [address] [id number] [place] [address]- 8422 Dec, [facility] [place] [facility] [address] [id number] [place] [address]- 3979 Dec, [facility] [place] [facility] [address] [id number] [place] [address]- 9379 2013 [facility] [place] [facility] [address] [id number] [place] [address]- 8088 2013 [facility] [place] [facility] [address] [id number] [place] [address]- 3686 13 Dec, 2013 [facility] [place] [facility] [address] [id number] [place] [address]- 1866 Dec, [facility] [place] [facility] [address] [id number] [place] [address]- 2831 Dec, [facility] [place] [facility] [address] [id number] [place] [address]- 4728 Nov, [facility] [place] [facility] [address] [id number] [place] [address]- 4332 Nov, [facility] [place] [facility] [address] [id number] [place] [address]- 1864 Nov, [facility] [place] [facility] [address] [id number] [place] [address]- 0529 Nov, [facility] [place] [facility] [address] [id number] [place] [address]- 5269 Nov, [facility] [place] [facility] [address] [id number] [place] [address]- 7447 Nov, [facility] [place] [facility] [address] [id number] [place] [address]- 2739 Nov, [facility] [place] [facility] [address] [id number] [place] [address]- 8006 Nov, [facility] [place] [facility] [address] [id number] [place] [address]- 9463 Nov, [facility] [place] [facility] [address] [id number] [place] [address]- 7673 Nov, [facility] [place] [facility] [address] [id number] [place] [address]- 7872 Nov, [facility] [place] [facility] [address] [id number] [place] [address]- 5714 Nov, [facility] [address] [id number] [place] [address]- 6494 Nov, [facility] [address] [id number] [place] [address]- 3832 Oct, [facility] [address] [id number] [place] [address]- 0556 Oct, [facility] [address] [id number] [place] [address]- 8717 Oct, [facility] [address] [id number] [place] [address]- 2848 Oct, [facility] [address] [id number] [place] [address]- 7014 Oct, [facility] [address] [id number] [place] [address]- 1457 Oct, [facility] [address] [id number] [place] [address]- 1892 Oct, [facility] [address] [id number] [place] [address]- 8145 Oct, [facility] [address] [id number] [place] [address]- 4588 Oct, [facility] [address] [id number] [place] [address]- 8967 Oct, [facility] [address] [id number] [place] [address]- 6592 Oct, [facility] [place] [facility] [address] [id number] [place] [address]- 7384 Oct, [facility] [address] [id number] [place] [address]- 0162 Oct, [facility] [address] [id number], [place] [address]- 7392 Oct, [facility] [place] [facility] [address] [id number] [place] [address]- 3893 Sep, [facility] [place] [facility] [address] [id number] [place] [address]- 1209 Sep, [facility] [place] [facility] [address] [id number] [place] [address]- 5557 Sep, [facility] [place] [facility] [address] [id number], [place] [address]- 6331 Sep, [facility] [place] [facility] [address] [id number] [place] [address]- 3007 Sep, [facility] [place] [facility] [address] [id number] [place] [address]- 4683 Sep, [facility] [place] [facility] [address] [id number], [place] [address]- 0844 Sep, [facility] [place] [facility] [address] [id number], [place] [address]- 7632 Sep, [facility] [place] [facility] [address] [id number], [place] [address]- 9877 Sep, [facility] [place] [facility] [address] [id number], [place] [address]- 3778 Sep, [facility] [place] [facility] [address] [id number], [place] [address]- 2661 Aug, [facility] [place] [facility] [address] [id number], [place] [address]- 0586 Aug, [facility] [place] [facility] [address] [id number], [place] [address]- 2918 Aug, [facility] [place] [facility] [address] [id number], [place] [address]- 4639 Aug, [facility] [place] [facility] [address] [id number], [place] [address]- 6419 Aug, [facility] [place] [facility] [address] [id number] [place] [address]- 8073 23 Aug, 2012 [facility] [address] [id number] [place] [address]- 3586 23 Aug, 2012 [facility] [place] [facility] [address] [id number] [place] [address]- 3301 23 Aug, 2012 [facility] [address] [id number] [place] [address]- 0875 22 Aug, 2012 [facility] [place] [facility] [address] [id number] [place] [address]- 3753 22 Aug, 2012 [facility] [address] [id number] [place] [address]- 1388 18 Aug, 2012 [facility] [address] [id number] [place] [address]- 8097 18 Aug, 2012 [facility] [place] [facility] [address] [id number] [place] [address]- 0286 18 Aug, 2012 [facility] [address] [id number] [place] [address]- 4695 18 Aug, 2012 [facility] [place] [facility] [address] [id number] [place] [address]- 6155 17 Aug, 2012 [facility] [address] [id number] [place] [address]- 0466 14 Aug, 2013 [facility] [place] [facility] [address] [id number] [place] [address]- 8835 14 Aug, 2012 [facility] [place] [facility] [address] [id number] [place] [address]- 6435 Aug, 2012 [facility] [place] [facility] [address] [id number] [place] [address]- 7331 20 Jul, 2012 [facility] [place] [facility] [address] [id number] [place] [address]- 2347 19 Jul, 2012 [facility] [place] [facility] [address] [id number] [place] [address]- 5106 Jul, [facility] [place] [facility] [address] [id number] [place] [address]- 7051 Jul, [facility] [place] [facility] [address] [id number] [place] [address]- 5021 Jul, [facility] [place] [facility] [address] [id number] [place] [address]- 1819 Jun, [facility] [place] [facility] [address] [id number] [place] [address]- 4366 Jun, [facility] [place] [facility] [address] [id number] [place] [address]- 8403 Jun, [facility] [place] [facility] [address] [id number] [place] [address]- 4482 Jun, [facility] [place] [facility] [address] [id number] [place] [address]- 6558 Jun, [facility] [place] [facility] [address] [id number] [place] [address]- 8493 Jun, [facility] [place] [facility] [address] [id number] [place] [address]- 0371 Jun, [facility] [place] [facility] [address] [id number] [place] [address]- 0891 Jun, [facility] [place] [facility] [address] [id number] [place] [address]- 6510 Jun, [facility] [place] [facility] [address] [id number] [place] [address]- 8695 Jun, [facility] [place] [facility] [address] [id number] [place] [address]- 5645 May, [facility] [place] [facility] [address] [id number] [place] [address]- 9785 May, [facility] [place] [facility] [address] [id number] [place] [address]- 1628 May, [facility] [place] [facility] [address] [id number] [place] [address]- 1927 May, [facility] [address] [id number] [place] [address]- 8238 May, [facility] [place] [facility] [address] [id number] [place] [address]- 6247 May, [facility] [address] [id number] [place] [address]- 2580 May, [facility] [address] [id number] [place] [address]- 4759 May, [facility] [address] [id number] [place] [address]- 5573 May, [facility] [address] [id number] [place] [address] Apr, [facility] [address] [id number] [place] [address] Apr, [facility] [address] [id number] [place] [address] Apr, [facility] [address] [id number] [place] [address] Apr, [facility] [address] [id number] [place] [address] Apr, [facility] [address] [id number] [place] [address] Apr, [facility] [place] [facility] [address] [id number], [place] [address] Apr, [facility] [place] [facility] [address] [id number] [place] [address] March, [facility] [place] [facility] [address] [id number] [place] [address] Feb, [facility] [place] [facility] [address] [id number] [place] [address] Feb, [facility] [place] [facility] [address] [id number] [place] [address] 12 Feb, 2013 [facility] [place] [facility] [address] [id number] [place] [address] 28 Jan, 2013 [facility] [place] [facility] [address] [id number] [place] [address] 21 Jan, 2013 [facility] [place] [facility] [address] [id number] [place] [address] 19 Jan, 2013 [facility] [place] [facility] [address] [id number] [place] [address] 14 Jan, 2013 [facility] [place] [facility] [address] [id number] [place] [address] 12 Jan, 2013 [facility] [place] [facility] [address] [id number] [place] [address] 08 Jan, 2013 [facility] [place] [facility] [address] [id number] [place] [address] 07 Jan, 2013 [facility] [place] [facility] [address] [id number] [place] [address]- [address] 04 Jan, 2013 [facility] [place] [facility] [address] [id number] [place] [address] 2765 28 Dec, 2012 [facility] [place] [facility] [address] [id number] [place] [address] 25 Dec, 2012 [facility] [place] [facility] [address] [id number] [place] [address]703 13 Dec, 2012 [facility] [place] [facility] [address] [id number] [place] [address] 4110 11 Dec, 2012 [facility] [place] [facility] [address] [id number] [place] [address] 07 Dec, 2012 [facility] [place] [facility] [address] [id number] [place] [address] 06 Dec, 2012 [facility] [place] [facility] [address] [id number], [place] [address] 05 Dec, 2012 [facility] [address] [id number] [place] [address] Nov, [facility] [place] [facility] [address] [id number] [place] [address] 24 Nov, 2012 [facility] [address] [id number] [place] [address] 18 Nov, 2012 [facility] [address] [id number] [place] [address] 15 Nov, 2012 [facility] [address] [id number] [place] [address] Nov, [facility] [address] [id number] [place] [address] Nov, [facility] [address] [facility] [id number] [place] [address] Nov, [facility] [address] [id number] [place] [address] Oct, [facility] [address] [id number] [place] [address] Oct, [facility] [address] [facility] [id number] [place] [address]- [address] Oct, [facility] [address] [id number] [place] [address] Oct, [facility] [place] [facility] [address] [id number] [place] [address] Oct, [facility] [place] [facility] [address] [id number] [place] [address] 49[address] Oct, [facility] [place] [facility] [address] [id number] [place] [address] 7865 Oct, [facility] [place] [facility] [address] [facility] [id number] [place] [address]18 Oct, [facility] [place] [facility] [address] [id number] [place] [address] 1146 Oct, [facility] [place] [facility] [address] [id number] [place] [address]- 3502 Oct, [facility] [place] [facility] [address] [id number] [place] [address]- [address] Oct, [facility] [place] [facility] [address] [id number] [place] [address] 7364 Oct, [facility] [place] [facility] [address] [id number] [place] [address]- [address] Sep, [facility] [place] [facility] [address] [id number] [place] [address]- 1699 Sep, [facility] [place] [facility] [address] [id number] [place] [address]- [address] Sep, [facility] [place] [facility] [address] [id number] [place] [address]- 4477 Sep, [facility] [place] [facility] [address] [id number] [place] [address]- 9197 Sep, [facility] [place] [facility] [address] [id number] [place] [address]- 69[address] Sep, [facility] [place] [facility] [address] [facility] [id number] [place] [address]- [address] Sep, [facility] [place] [facility] [address] [id number] [place] [address]- 6937 Sep, [facility] [place] [facility] [address] [id number] [place] [address]12 Sep, [facility] [place] [facility] [address] [id number] [place] [address]- [address]44 Sep, [facility] [place] [facility] [address] [id number] [place] [address]- 6[address] Sep, [facility] [place] [facility] [address] [id number] [place] [address] 6071 Aug, [facility] [place] [facility] [address] [id number] [place] [address]- 1776 Aug, [facility] [place] [facility] [address] [id number] [place] [address] 4320 Aug, [facility] [place] [facility] [address] [id number] [place] [address]- 7217 Aug, [facility] [place] [facility] [address] [id number] [place] [address]- 8083 Aug, [facility] [place] [facility] [address] [id number] [place] [address]- 0464 Aug, [facility] [place] [facility] [address] [id number] [place] [address]- 0267 Aug, [facility] [place] [facility] [address] [id number] [place] [address]- 4315 Aug, [facility] [place] [facility] [address] [id number] [place] [address]- 0389 Aug, [facility] [place] [facility] [address] [id number] [place] [address]- 4486 Aug, [facility] [place] [facility] [address] [id number] [place] [address]- 0073 Jul, [facility] [place] [facility] [address] [id number], [place] [address]- [address] 20 Jul, 2012 [facility] [place] [facility] [address] [id number], [place] [address]- [address]84 10 Jul, 2012 [facility] [place] [facility] [address] [address] [id number] [place] [address] 06 Jul, 2012 [facility] [place] [facility] [address] [id number] [address] 30 Jun, 2012 [facility] [place] [facility] [address] [id number] [place] [address] Jun, [facility] [place] [facility] [address] [id number] [place] [address] 16 Jun, 2012 [facility] [place] [facility] [address] [id number] [place] [address] Jun, [facility] [place] [facility] [address] [id number] [place] [address] Jun, [facility] [place] [facility] [address] [id number] [place] [address] Jun, [facility] [place] [facility] [address] [id number] [place] [address] Jun, [facility] [place] [facility] [address] [id number] [place] [address] May, [facility] [place] [facility] [address] [id number] [place] [address] May, [facility] [place] [facility] [address] [id number] [place] [address] May, [facility] [place] [facility] [address] [id number] [place] [address] May, [facility] [place] [facility] [address] [id number] [place] [address] May, [facility] [place] [facility] [address] [id number] [place] [address] Apr, [facility] [place] [facility] [address] [id number] [place] [address] Apr, [facility] [place] [facility] [address] [id number] [place] [address] Apr, [facility] [place] [facility] [address] [id number] [place] [address] Apr, [facility] [place] [facility] [address] [id number] [place] [address] Apr, [facility] [place] [facility] [address] [id number] [place] [address] March, [facility] [place] [facility] [address] [id number] [place] [address] March, [facility] [address] [id number] [place] [address] March, [facility] [address] [id number] [place] [address] March, [facility] [address] [id number] [place] [address] March, [facility] [address] [id number] [place] [address] March, [facility] [address] [id number] [place] [address] March, [facility] [address] [id number] [place] [address] March, [facility] [address] [id number] [place] [address] March, [facility] [address] [id number] [place] [address] March, [facility] [address] [id number] [place] [address] 30 Feb, 2012 [facility] [place] [facility] [address] [id number] [place] [address] Feb, [facility] [place] [facility] [address] [id number] [place] [address] Feb, [facility] [place] [facility] [address] [id number] [place] [address] Feb, [facility] [place] [facility] [address] [id number] [place] [address] Feb, [facility] [place] [facility] [address] [id number] [place] [address] Feb, [facility] [place] [facility] [address] [id number] [place] [address] Feb, [facility] [address] [id number] [place] [address] Feb, [facility] [place] [facility] [address] [id number] [place] [address] Feb, [facility] [place] [facility] [address] [id number] [place] [address] Jan, [facility] [place] [facility] [address] [id number] [place] [address] Jan, [facility] [address] [id number] [place] [address] Jan, [facility] [place] [facility] [address] [id number] [place] [address] Jan, [facility] [address] [id number] [place] [address] Dec, [facility] [place] [facility] [address] [id number] [place] [address] Dec, [facility] [address] [id number] [place] [address] Nov, [facility] [place] [facility] [address] [id number] [place] [address] Nov, [facility] [address] [id number] [place] [address] Nov, [facility] [place] [facility] [address] [id number] [place] [address] Nov, [facility] [place] [facility] [address] [id number] [place] [address] Nov, [facility] [place] [facility] [address] [id number] [place] [address] Oct, [facility] [place] [facility] [address] [id number] [place] [address] Oct, [facility] [place] [facility] [address] [id number] [address] Oct, [facility] [id number] [address] Oct, [facility] [id number], [place] [address] Oct, [facility] [id number], [place] [address] Oct, [facility] [id number] [address] Oct, [facility] [id number], [place] [address] Oct, [facility] [id number], [place] [address] Sep, IMMUNIZATIONS No Known Immunizations SOCIAL HISTORY Never Assessed REASON FOR VISIT custodial PLAN OF CARE Activity Details Follow Up prn Reason: VITAL SIGNS MEDICATIONS Medication Instructions Dosage Frequency Start Date End Date Duration Status Triamcinolone Acetonide 0.5 % Externally Twice a day x 14 days and then prn 1 application to affected area Jun, Active Ondansetron HCl 4 MG Orally every 6 hours as needed NAUSEA/VOMITING 1 tablets Active Estradiol 0.1 MG/GM Vaginal 3 times per week 1 application to skin Active Escitalopram Oxalate 20 MG Orally Once a day 1 tablet 24h Nov, 30 day(s) Active MetFORMIN HCl ER 500 MG Orally Once a day 1 tablet with evening meal 24h Active Albuterol Sulfate HFA 108 (90 Base) MCG/ACT Inhalation every 6 hrs 2 puffs as needed 6h Nov, Active Potassium Chloride Radha ER 20 meq Orally q48H TAKES WITH FUROSEMIDE 2 tablet with food Active Lorazepam 0.5 MG Orally Once a day at bedtime 1 tablet Apr, Active Metoprolol Tartrate 50 MG Orally Twice a day 1 tablet with food 12h Active Oxybutynin Chloride ER 10 MG 1 TABLET BY MOUTH EVERY DAY FOR UNINHIBITED NEUROPATHC BLADDER, NEC Active MiraLax 17 gm/dose Orally Once a day 17 grams mixed in 8 oz of water or juice 24h Apr, Active BuPROPion HCl ER (XL) 300 MG Orally Once a day at HS 1 tablet in the morning Active Tylenol 325 MG Orally 3 times a day to be given with Tramadol 1 tablet Feb, Active Furosemide 20 mg Orally every other day 1 tablet Active Gabapentin 400 MG Orally Three times a day 1 capsule 8h Active Tramadol HCl 50 mg Orally 3 times a day 1 tablet as needed 8h Dec, 28 days Active Atorvastatin Calcium 40 MG Orally Once a day 1 tablet 24h Oct, 30 day(s) Active Tamsulosin HCl 0.4 MG Orally Once a day 1 capsule 24h Active RESULTS No Results PROCEDURES Procedure Date Ordered Result Body Site Stable Visit (10 minutes) Jul 15, 2018 INSTRUCTIONS MEDICATIONS ADMINISTERED No Known Medications MEDICAL (GENERAL) HISTORY Type Description Date 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
--- OUTSIDE RECORDS SUMMARY | 2018-09-04 11:29 | XMS REPORT ---
Author Author SHANIQUE VEGA [facility] Address [address] [place] [address] Care Team Providers [employer] Head Name Role Phone SHANIQUE VEGA Unavailable PROBLEMS Type Condition ICD9-CM Code NXX12-YW Code Onset Dates Condition Status SNOMED Code Problem Type 2 diabetes mellitus without complication, without long-term current use of insulin E11.9 Active 272031933 Problem Reactive depression F32.9 Active 39680955 Problem Ventral hernia without obstruction or gangrene K43.9 Active 415125758 Problem 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 Active 16788503 Problem Paroxysmal atrial fibrillation I48.0 Active 259074349 Problem Anxiety F41.9 Active 06442581 Problem Pharyngeal dysphagia R13.13 Active 74302463195842 Problem Insomnia G47.00 Active 765190078 Problem Peripheral vascular disease I73.9 Active 621290258 Problem Coronary artery disease I25.10 Active 47422173 Problem Hyperlipidemia E78.5 Active 92429526 Problem Other chronic pain G89.29 Active 77948783 Problem Hypertension I10 Active 83789522 Problem Low back pain M54.5 Active 347468994 ALLERGIES No Information ENCOUNTERS Encounter Location Date Diagnosis [facility] [employer] [address] [facility] [place] [id number] Jul, [facility] [address] [id number], [place] [address] Jul, Other chronic pain G89.29 [facility] [address] [id number], [place] [address] Jul, [place] [address] [id number], [place] [address] Jul, [employer] [address] [place] [id number] Jun, 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 [place] [address] [id number], [place] [address] Jun, Other chronic pain G89.29 [place] [address] [id number], [place] [address] Jun, [facility] [employer] [address] [place] [id number] May, Anxiety F41.9 ; Type 2 diabetes mellitus without complication, without long-term current use of insulin E11.9 ; Hypertension I10 ; Low back pain M54.5 ; Paroxysmal atrial fibrillation I48.0 and 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 [place] [address] [id number], [place] [address] May, Other chronic pain G89.29 [employer] [address] [place] [id number] May, Low back pain M54.5 [place] [id number] [place] [address]648- 7663 May, [place] [address] [id number] [place] [address] 34430- 8251 Apr, Other chronic pain G89.29 [place] [id number] [place] [address] 58961- 9454 Apr, [place] [id number] [place] [address] 10709- 1556 Apr, [facility] [employer] [address] [place] [id number] Apr, Closed compression fracture of L3 lumbar vertebra with routine healing, subsequent encounter S32.030D [employer] [address] [place] [id number] Apr, Low back pain M54.5 [facility] [employer] [address] [place] [id number] Apr, Coccydynia M53.3 [place] [address] [id number][place] [address] March, [place] [address] [address] [address] March, Other chronic pain G89.29 [facility] [address]65[address] [address] [address] March, [facility] [address]65100[place], [place] [address] March, [facility] [address]65100[place], [place] [address] Feb, [facility] [address]00565100[place], [place] [address] 4[address] Feb, Other chronic pain G89.29 [facility] [employer] [address] [place] [id number] Feb, Other chronic pain G89.29 and Anxiety F41.9 [facility] [address]00565100[place], [place] [address] Feb, [facility] [address]00565100[place], [place] [address] 36[address] Jan, [facility] [address]65100[place], [place] [address] 1458 Jan, [facility] [address], [place] [address] 9564 Jan, [facility] [address] [id number], [place] [address] 8305 Jan, [facility] [address] [id number] [address] Dec, [facility] [employer] [address] [place] [id number] Dec, Peripheral vascular disease I73.9 ; 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 ; Other chronic pain G89.29 ; Anxiety F41.9 ; Reactive depression F32.9 ; Insomnia G47.00 and Type 2 diabetes mellitus without complication, without long-term current use of insulin E11.9 [facility] [id number] [address] Nov [facility] [address] [id number][place] [id number] Nov, Anxiety F41.9 [facility] [address] [id number] [address] Nov, [facility] [id number][place] [address] Nov, Anxiety F41.9 [facility] [address] [place] [address] Nov, Status post surgery Z98.890 ; Confused R41.0 ; Anxiety F41.9 and Other chronic pain G89.29 [facility] [id number][place] [address] Nov, Other chronic pain G89.29 [facility] [address] [id number] [address] Oct, [facility] [id number][place] [address] Oct, Other chronic pain G89.29 [facility] [address] [id number], [place] [address] Oct, Anxiety F41.9 [facility] [id number][place] [address] Sep, Other chronic pain G89.29 [facility] [id number][place] [address] Sep, [facility] [employer] [address] [facility] [place] [place] [id number] Aug, Dysuria R30.0 and Anxiety F41.9 [facility] [address] [id number], [place] [address] Aug, [facility] [address] [id number][place] [address] Aug, Other chronic pain G89.29 [facility] [address]100[place], [place] [address] Jul, Other chronic pain G89.29 [facility] [address] [id number] [address] Jun, [facility] [id number] [place] [id number] 15 Jun, 2017 Other chronic pain G89.29 [facility] [address] [place] [address] 63454- 9990 Jun, [facility] [address] [place] [address]9260[address]- 4115 May, Other chronic pain G89.29 [facility] [address] [place] [address] 75546- 3511 Apr, Other chronic pain G89.29 [facility] [employer] [address] [place] [id number] Apr, Reactive depression F32.9 and Pharyngeal dysphagia R13.13 [facility] [address]005[address]100[place], [place] [address] Apr, Urinary tract infection without hematuria, site unspecified N39.0 [facility] [address]00565100[place], [place] [address] 490[address] March, Other chronic pain G89.29 [facility] [address]100[place], [place] [address]- 4297 Feb, Other chronic pain G89.29 [facility] [address]65[address], [place] [address] 2481 Feb, [facility] [id number] [place] [id number] Feb, [facility] [employer] [address] [place] [id number] Feb, Dysuria R30.0 and Ventral hernia without obstruction or gangrene K43.9 [facility] [address]00565100[place], [place] [address]- 2519 Jan, Other chronic pain G89.29 [facility] [id number] [place] [id number] Dec, Other chronic pain G89.29 [facility] [id number] [place] [address] 724476- 9229 Nov, Other chronic pain G89.29 [facility] [address] [place] [id number] Nov, Lymphadenitis I88.9 [facility] [id number] [place] [address] 011478- 8996 Nov, Other chronic pain G89.29 [facility] [id number] [place] [address] 35921- 0895 Nov, [facility] [id number] [place] [address] [id number] Nov, Other chronic pain G89.29 [facility] [employer] [address] [place] [address] Oct, Low back pain M54.5 ; Hypertension I10 and Type 2 diabetes mellitus without complication, without long-term current use of insulin E11.9 [facility] [id number] [place] [address] 35204- 9669 Oct, [facility] [id number] [place] [address] 85896- 5475 Oct, [facility] [id number] [place] [address] 39240- 6391 Oct, [facility] [address] [place] [address] 70075- 8782 Oct, [facility] [id number] [place] [address] 417388- 3623 Sep, [facility] [id number] [place] [address] 525457- 4755 Sep, [facility] [id number] [place] [address] 37556- 6284 Aug, Other chronic pain G89.29 [facility] [address] [id number], [place] [address]- 0671 Jul, [facility] [address] [id number], [place] [address]- 7779 Jul, [facility] [address]65100[place], [place] [address]- 5903 Jul, [facility] [address] [id number], [place] [address]- 0185 Jun, [facility] [address] [id number][place] [address]- 7828 Jun, [facility] [address] [place] [id number] Jun, Low back pain M54.5 ; Other chronic pain G89.29 and Coronary artery disease I25.10 [facility] [address], [place] [address]- 2646 Jun, [facility] [address], [place] [address]- 5649 May, [facility] [address]65100[place], [place] [address]- 5135 May, [facility] [address], [place] [address]- 8417 May, Other chronic pain G89.29 [facility] [address], [place] [address]- 7148 May, [facility] [address] [id number], [place] [address]- 2798 Apr, [facility] [address], [place] [address]- 1310 Apr, Acute cystitis without hematuria N30.00 [facility] [address] [id number], [place] [address]- 6532 Apr, Acute cystitis without hematuria N30.00 ; Coronary artery disease I25.10 ; Low back pain M54.5 and Other chronic pain G89.29 [facility] [id number] [place] [address] 85417- 4171 Apr, Other chronic pain G89.29 [facility] [id number] [place] [address] 68789- 4095 March, Other chronic pain G89.29 [facility] [id number] [place] [address] 15011- 7464 18 Feb, 2016 [facility] [id number] [place] [address] 16978- 3514 Feb, Arthritis M19.90 [facility] [id number] [place] [address] 17677- 8270 Feb, [facility] [id number] [place] [address] 66053- 9399 Jan, [facility] [id number] [place] [address] 02144- 8615 Jan, [facility] [id number] [place] [address] 57270- 0848 Jan, Other chronic pain G89.29 [facility] [id number] [place] [address] 56070- 0042 Jan, Hypertension I10 ; Coronary artery disease I25.10 and Insomnia G47.00 [facility] [id number] [place] [address] 44684- 2490 Jan, [facility] [id number] [place] [address] 30744- 5383 Dec, Right hip pain M25.551 [facility] [id number] [place] [address] 75073- 5262 Dec, [facility] [id number] [place] [address] 13963- 7114 Dec, [facility] [address]100[place], [place] [address]- 2243 Dec, [facility] [address] [place] [address] 12535 2546 Dec, Other chronic pain G89.29 [facility] [address], [place] [address] 2546 Dec, [facility] [id number] [place] [address] 51990 2544 Nov, [facility] [address] [place] [address] 39970 2544 Nov, Other chronic pain G89.29 [facility] [address] [place] [address] 55506- 6827 Nov, Right hip pain M25.551 and Coronary artery disease I25.10 [facility] [id number] [place] [address] 54366- 5283 Nov, Other chronic pain G89.29 [facility] [address], [place] [address]- 9122 Oct, [facility] [address], [place] [address]- 4624 Oct, [facility] [address], [place] [address]- 3631 Sep, [facility] [address]100[place], [place] [address]- 9759 Sep, [facility] [address]100[place], [place] [address]- 3702 Aug, [facility] [address] [place] [address] 55250- 2540 Aug, Hypertension I10 ; Coronary artery disease I25.10 and Arthritis M19.90 [facility] [address], [place] [address]- 5977 Jun, [facility] [address] [id number] [place] [address]- 7204 Jun, Essential hypertension, benign 401.1 ; Other chronic pain 338.29 and Chronic airway obstruction, not elsewhere classified 496 [facility] [address] [id number] [place] [address]- 0077 Jun, [facility] [address] [id number] [place] [address]- 4838 Jun, [facility] [address] [id number] [place] [address]- 1147 Jun, [facility] [address] [id number] [place] [address]- 1564 May, [facility] [address] [id number] [place] [address]- 2398 May, [facility] [address] [id number] [place] [address]- 3529 Apr, [facility] [address] [id number] [place] [address]- 2587 Apr, [facility] [address] [id number] [place] [address]- 0630 Apr, [facility] [address] [id number] [place] [address]- 3424 March, [facility] [address] [id number] [place] [address]- 8776 March, [facility] [address] [id number] [place] [address]- 0246 March, [facility] [address] [id number] [place] [address]- 6069 March, [facility] [address] [id number] [place] [address]- 7117 March, Sialadenitis 527.2 [facility] [address] [id number] [place] [address]- 9319 Feb, [facility] [place] [facility] [address] [id number] [place] [address]- 5926 Feb, [facility] [place] [facility] [address] [id number] [place] [address]- 3588 Feb, [facility] [place] [facility] [address] [id number] [place] [address]- 0908 14 Feb, 2015 [facility] [place] [facility] [address] [id number] [place] [address]- 5308 Feb, [facility] [place] [facility] [address] [id number] [place] [address]- 4830 Jan, [facility] [place] [facility] [address] [id number] [place] [address]- 2277 Jan, [facility] [place] [facility] [address] [id number] [place] [address]- 2883 Jan, [facility] [place] [facility] [address] [id number] [place] [address]- 1871 Jan, [facility] [place] [facility] [address] [id number] [place] [address]- 6899 Jan, [facility] [place] [facility] [address] [id number] [place] [address]- 1088 Jan, [facility] [place] [facility] [address] [id number] [place] [address]- 5316 Dec, 2014 [facility] [place] [facility] [address] [id number] [place] [address]- 8090 Dec, 2014 [facility] [place] [facility] [address] [id number] [place] [address]- 1382 Dec, 2014 [facility] [place] [facility] [address] [id number] [place] [address]- 6712 Dec, 2014 [facility] [place] [facility] [address] [id number] [place] [address]- 8089 06 Dec, 2014 [facility] [place] [facility] [address] [id number] [place] [address]- 0630 Dec, [facility] [place] [facility] [address] [id number] [place] [address]- 1754 Nov, [facility] [place] [facility] [address] [id number] [place] [address]- 3003 Nov, [facility] [place] [facility] [address] [id number] [place] [address]- 4639 Nov, [facility] [place] [facility] [address] [id number] [place] [address]- 6010 Nov, [facility] [place] [facility] [address] [id number] [place] [address]- 6360 Nov, [facility] [place] [facility] [address] [id number] [place] [address]- 6457 Nov, [facility] [place] [facility] [address] [id number] [place] [address]- 1454 Nov, [facility] [place] [facility] [address] [id number] [place] [address]- 0671 Nov, [facility] [place] [facility] [address] [id number] [place] [address]- 8438 Nov, [facility] [place] [facility] [address] [id number] [place] [address]- 3563 Nov, [facility] [place] [facility] [address] [id number] [place] [address]- 6884 Nov, [facility] [place] [facility] [address] [id number] [place] [address]- 4566 Nov, [facility] [place] [facility] [address] [id number] [place] [address]- 2118 Nov, [facility] [place] [facility] [address] [id number] [place] [address]- 8236 Nov, [facility] [place] [facility] [address] [id number] [place] [address]- 4503 Oct, [facility] [place] [facility] [address] [id number] [place] [address]- 7102 Oct, [facility] [place] [facility] [address] [id number] [place] [address]- 5923 Oct, [facility] [place] [facility] [address] [id number] [place] [address]- 9262 Oct, [facility] [place] [facility] [address] [id number] [place] [address]- 5376 Oct, [facility] [place] [facility] [address] [id number] [place] [address]- 0328 Oct, [facility] [place] [facility] [address] [id number] [place] [address]- 8017 Oct, [facility] [place] [facility] [address] [id number] [place] [address]- 0208 Oct, [facility] [place] [facility] [address] [id number] [place] [address]- 6555 Oct, [facility] [place] [facility] [address] [id number] [place] [address]- 7915 Sep, [facility] [place] [facility] [address] [id number] [place] [address]- 9672 Sep, [facility] [place] [facility] [address] [id number] [place] [address] Sep, [facility] [place] [facility] [address] [id number] [place] [address] Sep, [facility] [place] [facility] [address] [id number] [place] [address] Sep, [facility] [place] [facility] [address] [id number] [place] [address] Sep, [facility] [place] [facility] [address] [id number] [place] [address] Sep, [facility] [place] [facility] [address] [id number] [place] [address] Sep, [facility] [place] [facility] [address] [id number] [place] [address] Sep, [facility] [place] [facility] [address] [id number] [place] [address] Sep, [facility] [place] [facility] [address] [id number] [place] [address] Sep, [facility] [place] [facility] [address] [id number] [place] [address] Sep, [facility] [place] [facility] [address] [id number] [place] [address] Aug, [facility] [place] [facility] [address] [id number] [place] [address] Aug, [facility] [place] [facility] [address] [id number] [place] [address] Aug, [facility] [place] [facility] [address] [id number] [place] [address] Aug, [facility] [place] [facility] [address] [id number] [place] [address] Aug, [facility] [place] [facility] [address] [id number] [place] [address] Aug, [facility] [place] [facility] [address] [id number] [place] [address] Aug, [facility] [place] [facility] [address] [id number] [place] [address] Aug, [facility] [place] [facility] [address] [id number] [place] [address] 30 Jul, 2014 [facility] [place] [facility] [address] [id number] [place] [address] 30 Jul, 2014 [facility] [place] [facility] [address] [id number] [place] [address] 30 Jul, 2014 [facility] [place] [facility] [address] [id number] [place] [address] 30 Jul, 2013 [facility] [place] [facility] [address] [id number] [place] [address] Jul, [facility] [place] [facility] [address] [id number] [place] [address] Jul, [facility] [place] [facility] [address] [id number] [place] [address]- [address] 15 Jul, 2014 [facility] [place] [facility] [address] [id number] [place] [address] 15 Jul, 2014 [facility] [place] [facility] [address] [id number] [place] [address] Jul, [facility] [place] [facility] [address] [id number] [place] [address] Jul, [facility] [place] [facility] [address] [id number] [place] [address] Jun, [facility] [place] [facility] [address] [id number] [place] [address] Jun, [facility] [place] [facility] [address] [id number] [place] [address] Jun, [facility] [place] [facility] [address] [id number] [place] [address] Jun, [facility] [place] [facility] [address] [id number] [place] [address] Jun, [facility] [place] [facility] [address] [id number] [place] [address] Jun, [facility] [place] [facility] [address] [id number] [place] [address] Jun, [facility] [place] [facility] [address] [id number] [place] [address] Jun, [facility] [place] [facility] [address] [id number] [place] [address] Jun, [facility] [place] [facility] [address] [id number] [place] [address] Jun, [facility] [place] [facility] [address] [id number] [place] [address] Jun, [facility] [place] [facility] [address] [id number] [place] [address] Jun, [facility] [place] [facility] [address] [id number] [place] [address] Jun, [facility] [place] [facility] [address] [id number] [place] [address] Jun, [facility] [place] [facility] [address] [id number] [place] [address] Jun, [facility] [place] [facility] [address] [id number] [place] [address] Jun, [facility] [place] [facility] [address] [id number] [place] [address]- [address] Jun, [facility] [place] [facility] [address] [id number] [place] [address] Jun, [facility] [place] [facility] [address] [id number] [place] [address]- [address] Jun, [facility] [place] [facility] [address] [id number] [place] [address] Jun, [facility] [place] [facility] [address] [id number] [place] [address] 1424 Jun, [facility] [place] [facility] [address] [id number] [place] [address] 8714 Jun, [facility] [place] [facility] [address] [id number] [place] [address]- 1481 May, [facility] [place] [facility] [address] [id number] [place] [address]- 4434 May, [facility] [place] [facility] [address] [id number] [place] [address] 8619 May, [facility] [place] [facility] [address] [id number] [place] [address]- 6095 May, [facility] [place] [facility] [address] [id number] [place] [address]- 3756 May, [facility] [place] [facility] [address] [id number] [place] [address]- 9354 May, [facility] [place] [facility] [address] [id number] [place] [address] 1985 May, 2013 [facility] [place] [facility] [address] [id number] [place] [address]- 5076 May, [facility] [place] [facility] [address] [id number] [place] [address]- 8903 May, [facility] [place] [facility] [address] [id number] [place] [address]- 2969 May, [facility] [place] [facility] [address] [id number] [place] [address]- 4198 May, [facility] [place] [facility] [address] [id number] [place] [address]- 9665 May, [facility] [place] [facility] [address] [id number] [place] [address]- 3363 May, [facility] [place] [facility] [address] [id number] [place] [address]- 7822 Apr, [facility] [place] [facility] [address] [id number] [place] [address]- 4136 Apr, [facility] [place] [facility] [address] [id number] [place] [address]- 4709 Apr, [facility] [place] [facility] [address] [id number] [place] [address]- 6494 Apr, [facility] [place] [facility] [address] [id number] [place] [address]- 9235 Apr, [facility] [place] [facility] [address] [id number] [place] [address]- 0459 Apr, [facility] [place] [facility] [address] [id number] [place] [address]- 0080 Apr, [facility] [place] [facility] [address] [id number] [place] [address]- 7488 Apr, [facility] [place] [facility] [address] [id number] [place] [address]- 0204 Apr, [facility] [place] [facility] [address] [id number] [place] [address]- 1835 March, [facility] [place] [facility] [address] [id number] [place] [address]- 3437 March, [facility] [place] [facility] [address] [id number] [place] [address]- 8345 March, [facility] [place] [facility] [address] [id number] [place] [address]- 3581 March, [facility] [place] [facility] [address] [id number] [place] [address]- 1449 March, [facility] [place] [facility] [address] [id number] [place] [address]- 8392 March, [facility] [place] [facility] [address] [id number] [place] [address]- 9976 March, [facility] [place] [facility] [address] [id number] [place] [address]- 2036 March, [facility] [place] [facility] [address] [id number] [place] [address]- 7984 March, [facility] [place] [facility] [address] [id number] [place] [address]- 6325 March, [facility] [place] [facility] [address] [id number] [place] [address]- 1443 March, [facility] [place] [facility] [address] [id number] [place] [address]- 2388 March, [facility] [address] [id number] [place] [address]- 9820 March, [facility] [place] [facility] [address] [id number] [place] [address]- 7930 March, [facility] [address] [id number] [place] [address]- 7142 March, [facility] [place] [facility] [address] [id number] [place] [address]- 4705 March, [facility] [place] [facility] [address] [id number] [place] [address]- 5693 March, [facility] [place] [facility] [address] [id number] [place] [address]- 7640 March, [facility] [address] [id number] [place] [address]- 8634 March, [facility] [place] [facility] [address] [id number] [place] [address]- 8810 March, [facility] [place] [facility] [address] [id number] [place] [address]- 9369 Feb, [facility] [place] [facility] [address] [id number] [place] [address]- 2749 Feb, [facility] [place] [facility] [address] [id number] [place] [address]- 9357 Feb, [facility] [place] [facility] [address] [id number] [place] [address]- 2900 Feb, [facility] [place] [facility] [address] [id number] [place] [address]- 2928 Feb, [facility] [place] [facility] [address] [id number] [place] [address]- 4244 Feb, [facility] [place] [facility] [address] [id number] [place] [address]- 5375 Feb, [facility] [place] [facility] [address] [id number] [place] [address]- 4012 Feb, [facility] [place] [facility] [address] [id number] [place] [address]- 6493 Jan, [facility] [place] [facility] [address] [id number] [place] [address]- 7385 Jan, [facility] [place] [facility] [address] [id number] [place] [address]- 0336 Jan, [facility] [place] [facility] [address] [id number] [place] [address]- 5338 Jan, [facility] [place] [facility] [address] [id number] [place] [address]- 6066 Jan, [facility] [place] [facility] [address] [id number] [place] [address]- 2694 Jan, [facility] [place] [facility] [address] [id number] [place] [address]- 8865 Jan, [facility] [place] [facility] [address] [id number] [place] [address]- 2071 Jan, [facility] [place] [facility] [address] [id number] [place] [address]- 0168 Jan, [facility] [place] [facility] [address] [id number] [place] [address]- 1036 Jan, [facility] [place] [facility] [address] [id number] [place] [address]- 4232 Dec, [facility] [place] [facility] [address] [id number] [place] [address]- 3585 Dec, [facility] [place] [facility] [address] [id number] [place] [address]- 8210 Dec, [facility] [place] [facility] [address] [id number] [place] [address]- 6892 2013 [facility] [place] [facility] [address] [id number] [place] [address]- 6066 2013 [facility] [place] [facility] [address] [id number] [place] [address]- 7295 Dec, [facility] [place] [facility] [address] [id number] [place] [address]- 5175 Dec, [facility] [place] [facility] [address] [id number] [place] [address]- 2068 Dec, [facility] [place] [facility] [address] [id number] [place] [address]- 4157 Nov, [facility] [place] [facility] [address] [id number] [place] [address]- 0038 Nov, [facility] [place] [facility] [address] [id number] [place] [address]- 2320 Nov, [facility] [place] [facility] [address] [id number] [place] [address]- 0648 Nov, [facility] [place] [facility] [address] [id number] [place] [address]- 2624 Nov, [facility] [place] [facility] [address] [id number] [place] [address]- 3729 Nov, [facility] [place] [facility] [address] [id number] [place] [address]- 9691 Nov, [facility] [place] [facility] [address] [id number] [place] [address]- 4011 Nov, [facility] [place] [facility] [address] [id number] [place] [address]- 9575 Nov, [facility] [place] [facility] [address] [id number] [place] [address]- 7092 Nov, [facility] [place] [facility] [address] [id number] [place] [address]- 9902 Nov, [facility] [place] [facility] [address] [id number] [place] [address]- 5846 15 Nov, 2013 [facility] [place] [facility] [address] [id number] [place] [address]- 2889 15 Nov, 2013 [facility] [address] [id number] [place] [address]- 1420 30 Oct, 2013 [facility] [place] [facility] [address] [id number] [place] [address]- 7286 Oct, [facility] [place] [facility] [address] [id number] [place] [address]- 6973 Oct, [facility] [place] [facility] [address] [id number] [place] [address]- 3145 Oct, [facility] [place] [facility] [address] [id number] [place] [address]- 2763 Oct, [facility] [place] [facility] [address] [id number] [place] [address] Oct, [facility] [place] [facility] [address] [id number] [place] [address]- 6379 Oct, [facility] [place] [facility] [address] [id number] [place] [address]75 18 Oct, 2013 [facility] [place] [facility] [address] [id number] [place] [address] Oct, [facility] [place] [facility] [address] [id number] [place] [address]- 5194 17 Oct, 2013 [facility] [place] [facility] [address] [id number] [place] [address]- 9226 Oct, [facility] [place] [facility] [address] [id number] [place] [address]- 1916 Oct, [facility] [place] [facility] [address] [id number] [place] [address]- 1447 02 Oct, 2013 [facility] [place] [facility] [address] [id number] [place] [address]- 7756 02 Oct, 2013 [facility] [place] [facility] [address] [id number] [place] [address]- 8710 Sep, [facility] [place] [facility] [address] [id number] [place] [address]- 6222 14 Sep, 2013 [facility] [place] [facility] [address] [id number], [place] [address]- 8883 Sep, [facility] [place] [facility] [address] [id number] [place] [address]- 5837 Sep, [facility] [place] [facility] [address] [id number], [place] [address]- 8928 Sep, [facility] [place] [facility] [address] [id number] [place] [address]- 6707 Sep, [facility] [place] [facility] [address] [id number], [place] [address]- 8370 Sep, [facility] [place] [facility] [address] [id number], [place] [address]- 3188 Sep, [facility] [place] [facility] [address] [id number], [place] [address]- 0065 Sep, [facility] [place] [facility] [address] [id number], [place] [address]- 5279 Sep, [facility] [place] [facility] [address] [id number], [place] [address]- 8209 Aug, [facility] [place] [facility] [address] [id number], [place] [address]- 7493 Aug, [facility] [place] [facility] [address] [id number], [place] [address]- 6095 Aug, [facility] [place] [facility] [address] [id number], [place] [address]- 8704 Aug, [facility] [place] [facility] [address] [id number], [place] [address]- 8084 Aug, [facility] [place] [facility] [address] [id number], [place] [address]- 6705 Aug, [facility] [place] [facility] [address] [id number] [place] [address]- 4928 23 Aug, 2012 [facility] [place] [facility] [address] [id number] [place] [address]- 5039 23 Aug, 2012 [facility] [place] [facility] [address] [id number] [place] [address]- 6056 22 Aug, 2012 [facility] [place] [facility] [address] [id number] [place] [address]- 2183 22 Aug, 2012 [facility] [place] [facility] [address] [id number] [place] [address]- 2468 18 Aug, 2012 [facility] [place] [facility] [address] [id number] [place] [address]- 5729 18 Aug, 2013 [facility] [place] [facility] [address] [id number] [place] [address]- 2060 18 Aug, 2013 [facility] [place] [facility] [address] [id number] [place] [address]- 2123 18 Aug, 2012 [facility] [place] [facility] [address] [id number] [place] [address]- 5837 17 Aug, 2013 [facility] [place] [facility] [address] [id number] [place] [address]- 0481 14 Aug, 2013 [facility] [place] [facility] [address] [id number] [place] [address]- 3498 14 Aug, 2013 [facility] [place] [facility] [address] [id number] [place] [address]- 5094 01 Aug, 2013 [facility] [place] [facility] [address] [id number], [place] [address]- 4709 20 Jul, 2012 [facility] [place] [facility] [address] [id number] [place] [address]- 1992 19 Jul, 2012 [facility] [place] [facility] [address] [id number] [place] [address]- 0016 18 Jul, 2012 [facility] [place] [facility] [address] [id number] [place] [address]- 6836 Jul, [facility] [place] [facility] [address] [id number] [place] [address]- 5326 Jul, [facility] [place] [facility] [address] [id number] [place] [address]- 7902 Jun, [facility] [place] [facility] [address] [id number] [place] [address]- 3499 Jun, [facility] [place] [facility] [address] [id number] [place] [address]- 9192 Jun, [facility] [place] [facility] [address] [id number] [place] [address]- 7047 Jun, [facility] [place] [facility] [address] [id number] [place] [address]- 9507 Jun, [facility] [place] [facility] [address] [id number] [place] [address]- 1994 Jun, [facility] [place] [facility] [address] [id number] [place] [address]- 7814 Jun, [facility] [place] [facility] [address] [id number] [place] [address]- 8550 Jun, [facility] [place] [facility] [address] [id number] [place] [address]- 9061 Jun, [facility] [place] [facility] [address] [id number] [place] [address]- 3313 Jun, [facility] [place] [facility] [address] [id number] [place] [address]- 5505 May, [facility] [place] [facility] [address] [id number] [place] [address]- 8707 May, [facility] [place] [facility] [address] [id number] [place] [address]- 0767 May, [facility] [place] [facility] [address] [id number] [place] [address]- 2151 May, [facility] [place] [facility] [address] [id number] [place] [address]- 7711 May, [facility] [place] [facility] [address] [id number] [place] [address]- 3709 May, [facility] [place] [facility] [address] [id number] [place] [address]- 8045 May, [facility] [place] [facility] [address] [id number] [place] [address]- 8631 May, [facility] [place] [facility] [address] [id number] [place] [address]- 4990 May, [facility] [place] [facility] [address] [id number] [place] [address]- 1592 Apr, [facility] [place] [facility] [address] [id number] [place] [address]- 2036 Apr, [facility] [place] [facility] [address] [id number] [place] [address]- 3556 Apr, [facility] [place] [facility] [address] [id number] [place] [address]- 4855 Apr, [facility] [place] [facility] [address] [id number] [place] [address]- 8268 Apr, [facility] [place] [facility] [address] [id number] [place] [address]- 0844 Apr, [facility] [place] [facility] [address] [id number] [place] [address]- 6131 Apr, [facility] [place] [facility] [address] [id number] [place] [address]- 3360 March, [facility] [place] [facility] [address] [id number] [place] [address]- 4621 Feb, [facility] [place] [facility] [address] [id number] [place] [address]- 7805 Feb, [facility] [place] [facility] [address] [id number] [place] [address]- 3231 Feb, [facility] [place] [facility] [address] [id number] [place] [address]- 9886 28 Jan, 2013 [facility] [address] [id number] [place] [address]- 5558 21 Jan, 2013 [facility] [place] [facility] [address] [id number] [place] [address]- 0546 19 Jan, 2013 [facility] [address] [id number] [place] [address]- 6182 14 Jan, 2013 [facility] [address] [id number] [place] [address]- 6133 12 Jan, 2013 [facility] [address] [id number] [place] [address]- 2410 08 Jan, 2013 [facility] [address] [id number] [place] [address]- 2194 07 Jan, 2013 [facility] [address] [id number] [place] [address]- 0903 04 Jan, 2013 [facility] [address] [id number] [place] [address]- 6389 28 Dec, 2012 [facility] [address] [id number] [place] [address]- 7663 25 Dec, 2012 [facility] [address] [id number] [place] [address]- 6074 13 Dec, 2012 [facility] [address] [id number] [place] [address]- 8567 11 Dec, 2012 [facility] [address] [id number] [place] [address]- 4639 07 Dec, 2012 [facility] [place] [facility] [address] [id number] [place] [address]- 4390 06 Dec, 2012 [facility] [place] [facility] [address] [id number] [place] [address]- 3187 05 Dec, 2012 [facility] [place] [facility] [address] [id number] [place] [address]- 3676 31 Nov, 2012 [facility] [address] [id number] [place] [address]- 2494 24 Nov, 2012 [facility] [place] [facility] [address] [id number] [place] [address]- 2453 18 Nov, 2012 [facility] [place] [facility] [address] [id number] [place] [address]- 6440 15 Nov, 2012 [facility] [place] [facility] [address] [id number] [place] [address]- 6536 10 Nov, 2012 [facility] [address] [id number] [place] [address]- 2066 Nov, [facility] [address] [id number] [place] [address]- 3641 Nov, [facility] [address] [id number] [place] [address]- 2486 Oct, [facility] [place] [facility] [address] [id number] [place] [address]- 4962 31 Oct, 2012 [facility] [address] [id number] [place] [address]- 6699 Oct, [facility] [place] [facility] [address] [id number] [place] [address]- 2841 Oct, [facility] [place] [facility] [address] [id number] [place] [address]- 0310 17 Oct, 2012 [facility] [place] [facility] [address] [id number] [place] [address]- 0671 17 Oct, 2012 [facility] [place] [facility] [address] [id number] [place] [address] 07 Oct, 2012 [facility] [place] [facility] [address] [id number] [place] [address] 07 Oct, 2012 [facility] [place] [facility] [address] [id number] [place] [address] 05 Oct, 2012 [facility] [place] [facility] [address] [id number] [place] [address] Oct, [facility] [address] [id number] [place] [address] Oct, [facility] [place] [facility] [address] [id number] [place] [address] Oct, [facility] [address] [id number] [place] [address] Sep, [facility] [place] [facility] [address] [id number] [place] [address] Sep, [facility] [address] [id number] [place] [address] 2007 Sep, [facility] [place] [facility] [address] [id number] [place] [address] Sep, [facility] [place] [facility] [address] [id number] [place] [address] Sep, [facility] [place] [facility] [address] [id number] [place] [address] Sep, [facility] [place] [facility] [address] [id number] [place] [address] 4[address] Sep, [facility] [place] [facility] [address] [id number] [place] [address] 2469 Sep, [facility] [place] [facility] [address] [id number] [place] [address] 6120 Sep, [facility] [place] [facility] [address] [id number], [place] [address] Sep, [facility] [place] [facility] [address] [id number] [place] [address] Sep, [facility] [place] [facility] [address] [id number] [place] [address] Aug, [facility] [place] [facility] [address] [id number] [place] [address]- [address] Aug, [facility] [place] [facility] [address] [id number] [place] [address] Aug, [facility] [place] [facility] [address] [id number] [place] [address] Aug, [facility] [place] [facility] [address] [id number] [place] [address] 5736 Aug, [facility] [place] [facility] [address] [id number] [place] [address]4 Aug, [facility] [place] [facility] [address] [id number] [place] [address]- 4770 Aug, [facility] [place] [facility] [address] [id number] [place] [address] 98[address] Aug, [facility] [place] [facility] [address] [id number] [place] [address] 0066 Aug, [facility] [place] [facility] [address] [id number] [place] [address] 9262 Aug, [facility] [place] [facility] [address] [id number] [place] [address] Jul, [facility] [place] [facility] [address] [id number], [place] [address] Jul, [facility] [place] [facility] [address] [id number], [place] [address] 1468 Jul, [facility] [place] [facility] [address] [id number], [place] [address] 06 Jul, 2012 [facility] [place] [facility] [address] [id number] [place] [address] Jun, [facility] [place] [facility] [address] [id number], [place] [address] Jun, [facility] [place] [facility] [address] [id number], [place] [address] Jun, [facility] [place] [facility] [address] [id number], [place] [address] 40[address] Jun, [facility] [place] [facility] [address] [id number] [place] [address] 5[address] Jun, [facility] [place] [facility] [address] [id number] [place] [address]- 9[address] Jun, [facility] [place] [facility] [address] [id number] [place] [address] Jun, [facility] [place] [facility] [address] [id number] [place] [address]- 7574 May, [facility] [place] [facility] [address] [id number] [place] [address] 2[address] May, [facility] [place] [facility] [address] [id number] [place] [address]- 0752 May, [facility] [place] [facility] [address] [id number] [place] [address] 3488 May, [facility] [place] [facility] [address] [id number] [place] [address] 4038 May, [facility] [place] [facility] [address] [id number] [place] [address] 4[address] Apr, [facility] [place] [facility] [address] [id number] [place] [address]- 1183 Apr, [facility] [place] [facility] [address] [id number] [place] [address] 0379 Apr, [facility] [place] [facility] [address] [id number] [place] [address]- 8525 Apr, [facility] [place] [facility] [address] [id number] [place] [address] 4694 Apr, [facility] [place] [facility] [address] [id number] [place] [address] March, [facility] [place] [facility] [address] [id number] [place] [address]- 0431 March, [facility] [place] [facility] [address] [id number] [place] [address] 1457 March, [facility] [address] [id number] [place] [address] 0793 March, [facility] [place] [facility] [address] [id number] [place] [address] 60[address] March, [facility] [address] [id number] [place] [address] 9031 March, [facility] [place] [facility] [address] [id number] [place] [address] 2472 March, [facility] [address] [id number] [place] [address] 9[address] March, [facility] [place] [facility] [address] [id number] [place] [address]27 March, [facility] [address] [id number] [place] [address]- 5881 March, [facility] [address] [id number] [place] [address]- [address] 30 Feb, 2012 [facility] [place] [facility] [address] [id number] [place] [address]341 Feb, [facility] [place] [facility] [address] [id number] [place] [address] 5192 Feb, [facility] [place] [facility] [address] [id number] [place] [address]- 5817 Feb, [facility] [place] [facility] [address] [id number] [place] [address]- 6018 Feb, [facility] [place] [facility] [address] [id number] [place] [address]- 6993 Feb, [facility] [place] [facility] [address] [id number] [place] [address]- 5323 Feb, [facility] [place] [facility] [address] [id number] [place] [address]- 4455 Feb, [facility] [place] [facility] [address] [id number] [place] [address]- 0268 Feb, [facility] [place] [facility] [address] [id number] [place] [address]- 5130 Jan, [facility] [place] [facility] [address] [id number] [place] [address]- 0536 Jan, [facility] [place] [facility] [address] [id number] [place] [address]- 2486 Jan, [facility] [place] [facility] [address] [id number] [place] [address]- 7490 Jan, [facility] [place] [facility] [address] [id number] [place] [address]- 2590 Dec, [facility] [place] [facility] [address] [id number] [place] [address] Dec, [facility] [place] [facility] [address] [id number] [place] [address] Nov, [facility] [place] [facility] [address] [id number] [place] [address] Nov, [facility] [place] [facility] [address] [id number] [place] [address] Nov, [facility] [place] [facility] [address] [id number] [place] [address] Nov, [facility] [place] [facility] [address] [id number] [place] [address] Nov, [facility] [place] [facility] [address] [id number] [place] [address] Oct, [facility] [place] [facility] [address] [id number] [place] [address] Oct, [facility] [place] [facility] [address] [id number] [place] [address] Oct, [facility] [place] [facility] [address] [id number] [id number] Oct, [facility] [address] [id number], [place] [address] Oct, [facility] [address] [id number], [place] [address] Oct, [facility] [address] [id number], [place] [address] Oct, [facility] [address] [id number], [place] [address] Oct, [facility] [address] [id number], [place] [address] Sep, IMMUNIZATIONS No Known Immunizations SOCIAL HISTORY Never Assessed REASON FOR VISIT Controlled Med Refill PLAN OF CARE VITAL SIGNS MEDICATIONS Medication Instructions Dosage Frequency Start Date End Date Duration Status Tramadol HCl 50 mg Orally 3 times a day 1 tablet as needed Dec, 28 days Active RESULTS No Results PROCEDURES No Known procedures INSTRUCTIONS MEDICATIONS ADMINISTERED No Known Medications MEDICAL (GENERAL) HISTORY Type Description Date 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
[2018-09-04] MEDS ORDERED: fentaNYL INJECTION 100 MCG/2 ML AMP IVP ONE (11:30)
--- OUTSIDE RECORDS SUMMARY | 2018-09-04 11:30 | XMS REPORT ---
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 Role Phone SHAHNAZ MARQUEZ Unavailable PROBLEMS Type Condition ICD9-CM Code SEM00-AE Code Onset Dates Condition Status SNOMED Code Problem Type 2 diabetes mellitus without complication, without long-term current use of insulin E11.9 Active 012001809 Problem Reactive depression F32.9 Active 94726407 Problem Ventral hernia without obstruction or gangrene K43.9 Active 344362891 Problem 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 Active 03407647 Problem Paroxysmal atrial fibrillation I48.0 Active 033198089 Problem Anxiety F41.9 Active 17970427 Problem Pharyngeal dysphagia R13.13 Active 29337436365021 Problem Insomnia G47.00 Active 688564880 Problem Peripheral vascular disease I73.9 Active 748870601 Problem Coronary artery disease I25.10 Active 79793562 Problem Hyperlipidemia E78.5 Active 10599713 Problem Other chronic pain G89.29 Active 85964680 Problem Hypertension I10 Active 52278121 Problem Low back pain M54.5 Active 859342528 ALLERGIES No Information ENCOUNTERS Encounter Location Date Diagnosis Via [employer] [address] [facility] [place] [id number] Jul, [facility] [address] [facility] [id number], [place] [address] Jul, Other chronic pain G89.29 [facility] [address] [facility] [id number], [place] [address]4 Jul, [facility] [address] [id number], [place] [address] Jul, [facility] [address] [facility] [place] [id number] Jun, 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 [place] [address] [place] [address] 62589- 1784 Jun, Other chronic pain G89.29 [place] [id number] [place] [address] 59413- 1472 Jun, Via [employer] [address] [place] [id number] May, Anxiety F41.9 ; Type 2 diabetes mellitus without complication, without long-term current use of insulin E11.9 ; Hypertension I10 ; Low back pain M54.5 ; Paroxysmal atrial fibrillation I48.0 and 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 [place] [id number] [place] [address] 63244- 6224 May, Other chronic pain G89.29 [facility] [employer] [address] [place] [id number] May, Low back pain M54.5 [place] [id number] [place] [address] 94641- 0821 May, [place] [id number] [place] [address] 98888- 0191 Apr, Other chronic pain G89.29 [place] [id number] [place] [address] 71122- 1333 Apr, [place] [address] [place] [address] 71094- 9839 Apr, Via [employer] [address] [place] [id number] Apr, Closed compression fracture of L3 lumbar vertebra with routine healing, subsequent encounter S32.030D Via [employer] [address] [place] [id number] Apr, Low back pain M54.5 [facility] [employer] [address] [place] [id number] Apr, Coccydynia M53.3 [place] [address] [place] [address] 58201- 6128 March, [place] [address], [place] [address] 6[address] March, Other chronic pain G89.29 [facility] [address]00565100[place], [place] [address] March, [facility] [address] [id number], [place] [address] 3344 March, [facility] [address]00565100[place], [place] [address] 6[address] Feb, [facility] [address] [id number], [place] [address] 8219 Feb, Other chronic pain G89.29 [facility] [employer] [address] [place] [id number] Feb, Other chronic pain G89.29 and Anxiety F41.9 [facility] [address]00565[address], [place] [address] 0[address] Feb, [facility] [address]00565[address], [place] [address] 5[address] Jan, [facility] [address], [place] [address]- 3286 Jan, [facility] [address] [id number], [place] [address]- 7940 Jan, [facility] [address] [id number], [place] [address]- 7448 Jan, [facility] [address] [id number], [place] [address] 57[address] Dec, [facility] [employer] [address] [place] [id number] Dec, Peripheral vascular disease I73.9 ; 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 ; Other chronic pain G89.29 ; Anxiety F41.9 ; Reactive depression F32.9 ; Insomnia G47.00 and Type 2 diabetes mellitus without complication, without long-term current use of insulin E11.[address] [id number] [place] [address] Nov [facility] [address] [id number][place] [id number] Nov, Anxiety F41.9 [facility] [address] [id number] [address] 8638 Nov, [facility] [address] [id number][place] [address] Nov, Anxiety F41.9 [facility] [employer] [address] [place] [id number] Nov, Status post surgery Z98.890 ; Confused R41.0 ; Anxiety F41.9 and Other chronic pain G89.29 [facility] [address] [id number] [id number] Nov, Other chronic pain G89.29 [facility] [address] [id number] [address] Oct, [facility] [address] [id number][place] [address] Oct, Other chronic pain G89.29 [facility] [address] [id number], [place] [address] 1106 Oct, Anxiety F41.9 [facility] [id number] [address] Sep, Other chronic pain G89.29 [facility] [address] [id number] [address] Sep, Via [employer] [address] [place] [id number] Aug, Dysuria R30.0 and Anxiety F41.9 [facility] [address] [facility] [id number], [place] [address] 3616 Aug, [facility] [address] [id number] [address] Aug, Other chronic pain G89.29 [facility] [address] [id number] [address] [address] 11 Jul, 2017 Other chronic pain G89.29 [facility] [id number], [place] [address] Jun, [facility] [id number][place] [address] Jun, Other chronic pain G89.29 [facility] [address]00565100[place], [place] [address] 60[address] Jun, [facility] [address]00565100[place], [place] [address]- 9794 May, Other chronic pain G89.29 [facility] [address]00565100[place], [place] 1494 Apr, Other chronic pain G89.29 [facility] [employer] [address] [place] [id number] Apr, Reactive depression F32.9 and Pharyngeal dysphagia R13.13 [facility] [address] [id number], [place] [address] 7208 Apr, Urinary tract infection without hematuria, site unspecified N39.0 [place] [address], [place] [address] 6679 March, Other chronic pain G89.29 [facility] [address]65[address], [place] [address]- 8213 Feb, Other chronic pain G89.29 [facility] [address] [id number] [address] 8609 Feb, [facility] [id number], [place] [address] Feb, [facility] [employer] [address] [place] [id number] Feb, Dysuria R30.0 and Ventral hernia without obstruction or gangrene K43.9 [facility] [address]65[address] [address] 6081 Jan, Other chronic pain G89.29 [facility] [address] 0220465100[place] [address] Dec, Other chronic pain G89.29 [facility] [address] [place] [address] 53870- 1589 Nov, Other chronic pain G89.29 [facility] [address] [place] [id number] Nov, Lymphadenitis I88.9 [facility] [address] [facility] [id number] [place] [address] 24871- 5116 Nov, Other chronic pain G89.29 [facility] [id number] [place] [address] 51718- 1496 Nov, [facility] [id number] [place] [address] [id number] Nov, Other chronic pain G89.29 [facility] [employer] [address] [place] [id number] Oct, Low back pain M54.5 ; Hypertension I10 and Type 2 diabetes mellitus without complication, without long-term current use of insulin E11.9 [facility] [address] [place] [address] 43734- 5002 Oct, [facility] [address]00565100[place], [place] [address]- 4022 Oct, [facility] [address]00565100[place], [place] [address]- 8766 Oct, [facility] [address] [place] [address] 848483- 1833 Oct, [facility] [address] [place] [address] 099621- 3528 Sep, [facility] [address] [facility] [id number] [place] [address] 46592- 5472 Sep, [facility] [address] [place] [address] 63970- 0260 Aug, Other chronic pain G89.29 [facility] [address] [facility] [id number], [place] [address]- 4350 Jul, [facility] [address]65[address], [place] [address]- 3729 Jul, [facility] [address]00565100[place], [place] [address]- 7128 Jul, [facility] [address] [place] [address] 97731- 4983 Jun, [facility] [address] [place] [address] 18977- 2069 Jun, [facility] [address] [facility] [place] [id number] Jun, Low back pain M54.5 ; Other chronic pain G89.29 and Coronary artery disease I25.10 [facility] [address]00565[address], [place] [address]- 5466 Jun, [facility] [address], [place] [address]- 9693 May, [facility] [address] [place] [address] 96455- 6151 May, [facility] [address]65[address], [place] [address]- 2726 May, Other chronic pain G89.29 [facility] [address], [place] [address]- 9801 May, [facility] [address]65[address], [place] [address]- 8798 Apr, [facility] [address], [place] [address]- 0357 Apr, Acute cystitis without hematuria N30.00 [facility] [address], [place] [address]- 1045 Apr, Acute cystitis without hematuria N30.00 ; Coronary artery disease I25.10 ; Low back pain M54.5 and Other chronic pain G89.29 [facility] [id number] [place] [address] 50697- 9791 Apr, Other chronic pain G89.29 [facility] [id number] [place] [address] 67575- 9183 March, Other chronic pain G89.29 [facility] [id number] [place] [address] 62437- 0474 Feb, [facility] [id number] [place] [address] 30646- 3790 Feb, Arthritis M19.90 [facility] [id number] [place] [address] 79498- 0448 Feb, [facility] [id number] [place] [address] 89096- 4268 Jan, [facility] [id number] [place] [address] 41635- 9848 Jan, [facility] [id number] [place] [address] 47324- 1218 Jan, Other chronic pain G89.29 [facility] [id number] [place] [address] 26415- 7350 Jan, Hypertension I10 ; Coronary artery disease I25.10 and Insomnia G47.00 [facility] [address] [place] [address] 87679- 6958 Jan, [facility] [id number] [place] [address] 16805- 8266 Dec, Right hip pain M25.551 [facility] [id number] [place] [address] 99806- 3097 Dec, [facility] [id number] [place] [address] 43247- 5693 Dec, [facility] [address], [place] [address] 2544 Dec, [facility] [id number] [place] [address] 21330 2546 Dec, Other chronic pain G89.29 [facility] [address] [place] [address] 11614 2546 Dec, [facility] [id number] [place] [address] 12106 2541 Nov, [facility] [address] [place] [address] 06795 2542 Nov, Other chronic pain G89.29 [facility] [id number] [place] [address] 82063- 9480 Nov, Right hip pain M25.551 and Coronary artery disease I25.10 [facility] [id number] [place] [address] 52276- 6872 Nov, Other chronic pain G89.29 [facility] [address], [place] [address]- 7181 Oct, [facility] [id number] [place] [address] 44281- 1972 Oct, [facility] [address], [place] [address]- 6876 Sep, [facility] [address] [place] [address] 87065 2543 Sep, [facility] [address], [place] [address]- 6986 Aug, [facility] [id number] [place] [address] 57529 2540 Aug, Hypertension I10 ; Coronary artery disease I25.10 and Arthritis M19.90 [facility] [id number] [place] [address] 951310- 8888 Jun, [facility] [address] [facility] [id number] [place] [address]- 3387 Jun, Essential hypertension, benign 401.1 ; Other chronic pain 338.29 and Chronic airway obstruction, not elsewhere classified 496 [facility] [address] [id number] [place] [address]- 1994 Jun, [facility] [address] [id number] [place] [address]- 7675 Jun, [facility] [address] [id number] [place] [address]- 3270 Jun, [facility] [address] [facility] [id number] [place] [address]- 7114 May, [facility] [address] [facility] [id number] [place] [address]- 8756 May, [facility] [address] [id number] [place] [address]- 9350 Apr, [facility] [address] [facility] [id number] [place] [address]- 9915 Apr, [facility] [address] [id number] [place] [address]- 3518 Apr, [facility] [address] [id number] [place] [address]- 9976 March, [facility] [address] [facility] [id number] [place] [address]- 7611 March, [facility] [address] [facility] [id number] [place] [address]- 8561 March, [facility] [address] [id number] [place] [address]- 5871 March, [facility] [address] [facility] [id number] [place] 8040 March, Sialadenitis 527.2 [facility] [address] [place] [address]- 8308 Feb, [facility] [place] [facility] [address] [id number] [place] [address]- 2377 Feb, [facility] [place] [facility] [address] [id number] [place] [address]- 7181 29 Feb, 2015 [facility] [place] [facility] [address] [facility] [id number] [place] [address]- 8482 14 Feb, 2015 [facility] [place] [facility] [address] [id number] [place] [address]- 8758 Feb, [facility] [place] [facility] [address] [id number] [place] [address]- 7068 Jan, [facility] [place] [facility] [address] [facility] [id number] [place] [address]- 5044 Jan, [facility] [place] [facility] [address] [facility] [id number] [place] [address]- 2462 Jan, [facility] [place] [facility] [address] [facility] [id number] [place] [address]- 7873 Jan, [facility] [place] [facility] [address] [facility] [id number] [place] [address]- 3549 Jan, [facility] [place] [facility] [address] [facility] [id number] [place] [address]- 9733 Jan, [facility] [place] [facility] [address] [facility] [id number] [place] [address]- 5632 Dec, 2014 [facility] [place] [facility] [address] [facility] [id number] [place] [address]- 8458 Dec, 2014 [facility] [place] [facility] [address] [id number] [place] [address]- 0379 Dec, 2014 [facility] [place] [facility] [address] [facility] [id number] [place] [address]- 3837 Dec, 2014 [facility] [place] [facility] [address] [facility] [id number] 4278 06 Dec, 2014 [facility] [place] [facility] [address] [id number] [place] [address]- 0496 Dec, [facility] [place] [facility] [address] [id number] [place] [address]- 4581 Nov, [facility] [place] [facility] [address] [id number] [place] [address]- 0443 Nov, [facility] [place] [facility] [address] [id number] [place] [address]- 7242 Nov, [facility] [place] [facility] [address] [id number] [place] [address]- 6629 Nov, [facility] [place] [facility] [address] [id number] [place] [address]- 0636 Nov, [facility] [place] [facility] [address] [id number] [place] [address]- 6392 Nov, [facility] [place] [facility] [address] [id number] [place] [address]- 6212 Nov, [facility] [place] [facility] [address] [id number] [place] [address]- 4816 Nov, [facility] [place] [facility] [address] [id number] [place] [address]- 4513 Nov, [facility] [place] [facility] [address] [id number] [place] [address]- 2868 Nov, [facility] [place] [facility] [address] [id number] [place] [address]- 1263 Nov, [facility] [place] [facility] [address] [id number] [place] [address]- 3316 Nov, [facility] [place] [facility] [address] [id number] [place] [address]- 7872 Nov, [facility] [place] [facility] [address] [id number] [place] [address]- 5902 Nov, [facility] [place] [facility] [address] [id number] [place] [address]- 8338 Oct, [facility] [place] [facility] [address] [id number] [place] [address]- 0052 Oct, [facility] [place] [facility] [address] [id number] [place] 3337 Oct, [facility] [place] [facility] [address] [id number] [place] [address]- 7928 18 Oct, 2014 [facility] [place] [facility] [address] [id number] [place] [address]- 5452 18 Oct, 2014 [facility] [place] [facility] [address] [id number] [place] [address]- 5761 Oct, [facility] [place] [facility] [address] [id number] [place] [address]- 7000 Oct, [facility] [place] [facility] [address] [id number] [place] [address]- 0432 Oct, [facility] [place] [facility] [address] [id number] [place] [address]- 5719 Oct, [facility] [place] [facility] [address] [id number] [place] [address]- 7408 Sep, [facility] [place] [facility] [address] [id number] [place] [address]- 6854 Sep, [facility] [place] [facility] [address] [id number] [place] [address]- 0209 Sep, [facility] [place] [facility] [address] [id number] [place] [address]- 5813 Sep, [facility] [place] [facility] [address] [id number] [place] [address]- 3233 Sep, [facility] [place] [facility] [address] [id number] [place] [address]- 9236 Sep, [facility] [place] [facility] [address] [id number] [place] [address]- 4613 Sep, [facility] [place] [facility] [address] [id number] [place] [address]- 6445 Sep, [facility] [place] [facility] [address] [id number] [place] [address]- 5250 Sep, [facility] [place] [facility] [address] [id number] [place] [address] Sep, [facility] [place] [facility] [address] [id number] [place] [address] Sep, [facility] [place] [facility] [address] [id number] [place] [address] Sep, [facility] [place] [facility] [address] [id number] [place] [address] Aug, [facility] [place] [facility] [address] [id number] [place] [address] Aug, [facility] [place] [facility] [address] [id number] [place] [address] Aug, [facility] [place] [facility] [address] [id number] [place] [address] Aug, [facility] [place] [facility] [address] [id number] [place] [address] Aug, [facility] [place] [facility] [address] [id number] [place] [address] Aug, [facility] [place] [facility] [address] [id number] [place] [address] Aug, [facility] [place] [facility] [address] [id number] [place] [address] Aug, [facility] [place] [facility] [address] [id number] [place] [address] 30 Jul, 2014 [facility] [place] [facility] [address] [id number] [place] [address] 30 Jul, 2014 [facility] [place] [facility] [address] [id number] [place] [address]- [address] 30 Jul, 2014 [facility] [place] [facility] [address] [id number] [place] [address]- [address] 30 Jul, 2013 [facility] [place] [facility] [address] [id number] [place] [address] Jul, [facility] [place] [facility] [address] [id number] [place] [address] Jul, [facility] [place] [facility] [address] [id number] [place] [address]- [address] 15 Jul, 2013 [facility] [place] [facility] [address] [id number] [place] [address] 15 Jul, 2014 [facility] [place] [facility] [address] [id number] [place] [address] Jul, [facility] [place] [facility] [address] [id number] [place] [address] Jul, [facility] [place] [facility] [address] [id number] [place] [address]- [address] Jun, [facility] [place] [facility] [address] [id number] [place] [address] Jun, [facility] [place] [facility] [address] [id number] [place] [address] Jun, [facility] [place] [facility] [address] [id number] [place] [address] Jun, [facility] [place] [facility] [address] [id number] [place] [address] Jun, [facility] [place] [facility] [address] [id number] [place] [address] Jun, [facility] [place] [facility] [address] [id number] [place] [address] Jun, [facility] [place] [facility] [address] [id number] [place] [address] Jun, [facility] [place] [facility] [address] [id number] [place] [address] Jun, [facility] [place] [facility] [address] [id number] [place] [address] Jun, [facility] [place] [facility] [address] [id number] [place] [address]- [address] Jun, [facility] [place] [facility] [address] [id number] [place] [address] Jun, [facility] [place] [facility] [address] [id number] [place] [address] Jun, [facility] [place] [facility] [address] [id number] [place] [address] Jun, [facility] [place] [facility] [address] [id number] [place] [address] Jun, [facility] [place] [facility] [address] [id number] [place] [address] Jun, [facility] [facility] [address] [id number] [place] [address] Jun, [facility] [place] [facility] [address] [id number] [place] [address] 0795 Jun, [facility] [place] [facility] [address] [id number] [place] [address] 60[address] Jun, [facility] [place] [facility] [address] [id number] [place] [address] 1016 Jun, [facility] [place] [facility] [address] [id number] [place] [address] 5271 Jun, [facility] [place] [facility] [address] [id number] [place] [address]- 0657 Jun, [facility] [place] [facility] [address] [id number] [place] [address]- 0513 May, [facility] [place] [facility] [address] [id number] [place] [address] 9719 May, [facility] [place] [facility] [address] [id number] [facility] [place] [address] May, [facility] [address] [id number] [place] [address]- [address] May, [facility] [place] [address] [id number] [place] [address]- 3826 May, [facility] [place] [facility] [address] [id number] [place] [address]- 5720 May, [facility] [place] [facility] [address] [id number] [place] [address]- 48[address] May, [facility] [place] [facility] [address] [id number] [place] [address] 1959 May, [facility] [place] [facility] [address] [id number] [place] [address]- 0584 May, [facility] [place] [facility] [address] [id number] [place] [address]- 6264 May, [facility] [place] [facility] [address] [id number] [place] [address]- 7384 May, [facility] [place] [facility] [address] [id number] [place] [address]- 1367 May, [facility] [place] [facility] [address] [id number] [place] [address]- 3757 May, [facility] [place] [facility] [address] [id number] [place] [address]- 3995 Apr, [facility] [place] [facility] [address] [id number] [place] [address]- 1191 Apr, [facility] [place] [facility] [address] [id number] [place] [address]- 2146 Apr, [facility] [place] [facility] [address] [id number] [place] [address]- 4789 Apr, [facility] [place] [facility] [address] [id number] [place] [address]- 6086 Apr, [facility] [place] [facility] [address] [id number] [place] [address]- 4687 Apr, [facility] [place] [facility] [address] [id number] [place] [address]- 7906 Apr, [facility] [place] [facility] [address] [id number] [place] [address]- 4465 Apr, [facility] [place] [facility] [address] [id number] [place] [address]- 6401 Apr, [facility] [place] [facility] [address] [id number] [place] [address]- 1040 March, [facility] [place] [facility] [address] [id number] [place] [address]- 2712 March, [facility] [place] [facility] [address] [id number] [place] [address]- 6226 March, [facility] [address] [id number] [place] [address]- 2087 March, [facility] [place] [facility] [address] [id number] [place] [address]- 6433 March, [facility] [place] [address] [id number] [place] [address]- 0374 March, [facility] [address] [id number] [place] [address]- 5662 March, [facility] [place] [address] [id number] [place] [address]- 6598 March, [facility] [place] [facility] [address] [id number] [place] [address]- 9128 March, [facility] [place] [address] [id number] [place] [address]- 1451 March, [facility] [place] [facility] [address] [id number] [place] [address]- 1540 March, [facility] [address] [id number] [place] [address]- 7270 March, [facility] [address] [id number] [place] [address]- 7331 March, [facility] [address] [id number] [place] [address] March, [facility] [address] [id number] [place] [address] March, [facility] [address] [id number] [place] [address]- 1522 March, [facility] [address] [id number] [place] [address]- 4988 March, [facility] [address] [id number] [place] [address]- 2744 March, [facility] [address] [id number] [place] [address]- 5032 March, [facility] [address] [id number] [place] [address]- 3166 March, [facility] [address] [id number] [place] [address]- 7865 Feb, [facility] [address] [id number] [place] [address]- 3359 Feb, [facility] [address] [id number] [place] [address]- 3282 Feb, [facility] [address] [id number] [place] [address]- 6656 Feb, [facility] [address] [id number] [place] [address]- 7410 Feb, [facility] [address] [id number] [place] [address]- 0823 Feb, [facility] [address] [id number] [place] [address]- 8606 Feb, [facility] [address] [id number] [place] [address]- 3933 Feb, [facility] [address] [id number] [place] [address]- 4147 Jan, [facility] [address] [id number] [place] [address]- 2370 Jan, [facility] [address] [id number] [place] [address]- 1998 Jan, [facility] [address] [id number] [place] [address]- 4503 Jan, [facility] [address] [id number] [place] [address]- 6165 Jan, [facility] [address] [id number] [place] [address]- 7720 Jan, [facility] [address] [id number] [place] [address]- 7287 Jan, [facility] [address] [id number] [place] [address]- 1039 Jan, [facility] [address] [id number] [place] [address]- 1452 Jan, [facility] [address] [id number] [place] [address]- 4736 Jan, [facility] [address] [id number] [place] [address]- 1367 Dec, [facility] [address] [id number] [place] [address]- 4833 Dec, [facility] [address] [id number] [place] [address]- 7911 Dec, [facility] [address] [id number] [place] [address]- 9278 2013 [facility] [address] [id number] [place] [address]- 7164 2013 [facility] [address] [id number] [place] [address]- 1403 13 Dec, 2013 [facility] [address] [id number] [place] [address]- 8952 Dec, [facility] [address] [id number] [place] [address]- 8946 Dec, [facility] [address] [id number] [place] [address]- 4373 Nov, [facility] [address] [id number] [place] [address]- 9388 Nov, [facility] [address] [id number] [place] [address]- 1374 Nov, [facility] [address] [id number] [place] [address]- 7081 Nov, [facility] [address] [id number] [place] [address]- 6656 Nov, [facility] [address] [id number] [place] [address]- 0455 Nov, [facility] [address] [facility] [id number] [place] [address]- 4980 Nov, [facility] [address] [id number] [place] [address]- 0640 Nov, [facility] [address] [id number] [place] [address]- 4038 Nov, [facility] [address] [id number] [place] [address]- 7596 Nov, [facility] [address] [id number] [place] [address]- 4470 Nov, [facility] [address] [id number] [place] [address]- 2548 15 Nov, 2013 [facility] [address] [id number] [place] [address]- 4119 Nov, [facility] [place] [facility] [address] [id number] [place] [address]- 6610 Oct, [facility] [facility] [address] [id number] [place] [address]- 9796 Oct, [facility] [facility] [address] [id number] [place] [address]- 6792 Oct, [facility] [address] [id number] [place] [address]- 4173 Oct, [facility] [address] [id number] [place] [address]- 2106 Oct, [facility] [address] [id number] [place] [address]- 5015 Oct, [facility] [address] [id number] [place] [address]- 1996 Oct, [facility] [address] [id number] [place] [address]- 5544 Oct, [facility] [address] [id number] [place] [address]- 5922 Oct, [facility] [address] [id number] [place] [address]- 4857 Oct, [facility] [address] [id number] [place] [address]- 3730 Oct, [facility] [address] [id number] [place] [address]- 6588 Oct, [facility] [address] [id number] [place] [address]- 4562 Oct, [facility] [address] [id number] [place] [address]- 8831 Oct, [facility] [place] [facility] [address] [id number] [place] [address]- 1596 Sep, [facility] [address] [id number] [place] [address]- 3245 Sep, [facility] [address] [id number], [place] [address]- 1490 Sep, [facility] [address] [id number] [place] [address]- 4339 Sep, [facility] [address] [id number], [place] [address]- 5135 Sep, [facility] [address] [id number] [place] [address]- 3172 Sep, [facility] [address] [id number] [place] [address]- 0932 Sep, [facility] [address] [id number], [place] [address]- 6058 Sep, [facility] [address] [id number], [place] [address]- 1414 Sep, [facility] [address] [id number], [place] [address]- 6839 Sep, [facility] [address] [id number], [place] [address]- 1953 Aug, [facility] [address] [id number], [place] [address]- 2930 Aug, [facility] [address] [id number], [place] [address]- 3117 Aug, [facility] [address] [id number], [place] [address]- 4374 Aug, [facility] [address] [id number], [place] [address]- 1085 Aug, [facility] [address] [id number], [place] [address]- 4747 Aug, [facility] [address] [id number] [place] [address]- 7101 23 Aug, 2012 [facility] [place] [facility] [address] [id number] [place] [address]- 8107 23 Aug, 2012 [facility] [address] [id number] [place] [address]- 8584 22 Aug, 2012 [facility] [place] [facility] [address] [id number] [place] [address]- 4203 22 Aug, 2012 [facility] [address] [id number] [place] [address]- 9759 18 Aug, 2012 [facility] [facility] [address] [id number] [place] [address]- 0708 18 Aug, 2013 [facility] [place] [facility] [address] [id number] [place] [address]- 3580 18 Aug, 2013 [facility] [address] [id number] [place] [address]- 4269 18 Aug, 2013 [facility] [address] [id number] [place] [address]- 4535 17 Aug, 2013 [facility] [address] [id number] [place] [address]- 1890 14 Aug, 2013 [facility] [place] [address] [id number] [place] [address]- 4636 14 Aug, 2013 [facility] [address] [id number] [place] [address]- 5331 01 Aug, 2013 [facility] [facility] [address] [id number] [place] [address]- 4633 20 Jul, 2012 [facility] [address] [id number] [place] [address]- 8388 19 Jul, 2012 [facility] [address] [id number] [place] [address]- 8354 18 Jul, 2012 [facility] [address] [id number] [place] [address]- 9993 Jul, [facility] [address] [id number] [place] [address]- 4857 Jul, [facility] [address] [id number] [place] [address]- 9418 Jun, [facility] [facility] [address] [id number] [place] [address]- 7756 Jun, [facility] [address] [id number] [place] [address]- 2515 Jun, [facility] [place] [facility] [address] [id number] [place] [address]- 3840 Jun, [facility] [place] [facility] [address] [id number] [place] [address]- 6264 Jun, [facility] [place] [facility] [address] [id number] [place] [address]- 4883 Jun, [facility] [place] [facility] [address] [id number] [place] [address]- 1486 Jun, [facility] [place] [facility] [address] [id number] [place] [address]- 8834 Jun, [facility] [place] [facility] [address] [id number] [place] [address]- 0636 Jun, [facility] [place] [facility] [address] [id number] [place] [address]- 3313 Jun, [facility] [place] [facility] [address] [id number] [place] [address]- 9737 May, [facility] [place] [facility] [address] [id number] [place] [address]- 9541 May, [facility] [place] [facility] [address] [id number] [place] [address]- 0620 May, [facility] [place] [facility] [address] [id number] [place] [address]- 7019 May, [facility] [place] [facility] [address] [id number], [place] [address]- 1176 May, [facility] [place] [facility] [address] [id number] [place] [address]- 9231 May, [facility] [place] [facility] [address] [id number] [place] [address]- 8839 May, [facility] [place] [facility] [address] [id number] [place] [address]- 1549 May, [facility] [place] [facility] [address] [id number] [place] [address]- 4796 May, [facility] [place] [facility] [address] [id number] [place] [address]- 8715 Apr, [facility] [place] [facility] [address] [id number] [place] [address]- 0743 Apr, [facility] [place] [facility] [address] [id number] [place] [address]- 9071 Apr, [facility] [place] [facility] [address] [id number] [place] [address]- 9109 Apr, [facility] [place] [facility] [address] [id number] [place] [address]- 0487 Apr, [facility] [place] [facility] [address] [id number] [place] [address]- 5041 Apr, [facility] [place] [facility] [address] [id number] [place] [address]- 8769 Apr, [facility] [place] [facility] [address] [id number], [place] [address]- 1361 March, [facility] [place] [facility] [address] [id number] [place] [address]- 6062 Feb, [facility] [place] [facility] [address] [id number] [place] [address]- 7571 Feb, [facility] [place] [facility] [address] [id number] [place] [address]- 5245 Feb, [facility] [place] [facility] [address] [id number] [place] [address]- 9681 28 Jan, 2013 [facility] [place] [facility] [address] [id number] [place] [address]- 7806 21 Jan, 2013 [facility] [place] [facility] [address] [id number] [place] [address]- 2546 19 Jan, 2013 [facility] [place] [facility] [address] [id number] [place] [address]- 3951 14 Jan, 2013 [facility] [place] [facility] [address] [id number] [place] [address]- 2525 12 Jan, 2013 [facility] [place] [facility] [address] [id number] [place] [address]- 6120 08 Jan, 2013 [facility] [place] [facility] [address] [facility] [id number] [place] [address]- 1872 07 Jan, 2013 [facility] [place] [facility] [address] [id number] [place] [address]- 2978 04 Jan, 2013 [facility] [place] [facility] [address] [id number] [place] [address]- 5361 28 Dec, 2012 [facility] [place] [facility] [address] [id number] [place] [address]- 5740 25 Dec, 2012 [facility] [place] [facility] [address] [facility] [id number] [place] [address]- 6218 13 Dec, 2012 [facility] [place] [facility] [address] [id number], [place] [address]- 0069 11 Dec, 2012 [facility] [place] [facility] [address] [id number] [place] [address]- 5427 07 Dec, 2012 [facility] [place] [facility] [address] [id number] [place] [address]- 3785 06 Dec, 2012 [facility] [place] [facility] [address] [id number] [place] 2620 05 Dec, 2012 [facility] [place] [facility] [address] [id number], [place] [address]- 9314 31 Nov, 2012 [facility] [address] [id number] [place] [address]- 0323 24 Nov, 2012 [facility] [place] [facility] [address] [id number] [place] [address]- 7260 18 Nov, 2012 [facility] [address] [id number] [place] [address]- 2734 15 Nov, 2012 [facility] [address] [id number] [place] [address]- 9354 10 Nov, 2012 [facility] [address] [id number] [place] [address]- 3542 10 Nov, 2012 [facility] [address] [id number] [place] [address]- 1651 Nov, [facility] [address] [facility] [id number] [place] [address]- 4946 Oct, [facility] [address] [id number] [place] [address] Oct, [facility] [address] [id number] [place] [address] Oct, [facility] [address] [facility] [id number] [place] [address] Oct, [facility] [address] [id number] [place] [address] 17 Oct, 2012 [facility] [place] [facility] [address] [id number] [place] [address] 17 Oct, 2012 [facility] [place] [facility] [address] [id number] [place] [address] 07 Oct, 2012 [facility] [place] [facility] [address] [id number] [place] [address] 07 Oct, 2012 [facility] [place] [facility] [address] [facility] [id number] [place] [address] 05 Oct, 2012 [facility] [place] [facility] [address] [id number] [place] [address] Oct, [facility] [place] [facility] [address] [id number] [place] [address] Oct, [facility] [place] [facility] [address] [id number] [place] [address] Oct, [facility] [place] [facility] [address] [id number] [place] [address] Sep, [facility] [place] [facility] [address] [id number] [place] [address] Sep, [facility] [place] [facility] [address] [id number] [place] [address] 95[address] Sep, [facility] [place] [facility] [address] [id number] [place] [address] Sep, [facility] [place] [facility] [address] [id number] [place] [address] 1673 Sep, [facility] [place] [facility] [address] [id number] [place] [address] Sep, [facility] [place] [facility] [address] [id number] [place] [address] Sep, [facility] [place] [facility] [address] [facility] [id number] [place] [address] Sep, [facility] [place] [facility] [address] [id number] [place] [address] 12[address] Sep, [facility] [place] [facility] [address] [id number] [place] [address] Sep, [facility] [place] [facility] [address] [id number] [place] [address]- 17[address] Sep, [facility] [place] [facility] [address] [id number] [place] [address]- 68[address] Aug, [facility] [place] [facility] [address] [id number] [place] [address] 0795 Aug, [facility] [place] [facility] [address] [id number] [place] [address] 8055 Aug, [facility] [place] [facility] [address] [id number] [place] [address] Aug, [facility] [place] [facility] [address] [id number] [place] [address] 5168 Aug, [facility] [place] [facility] [address] [id number] [place] [address] Aug, [facility] [place] [facility] [address] [id number] [place] [address]- 8680 Aug, [facility] [place] [facility] [address] [id number] [place] [address] 44[address] Aug, [facility] [place] [facility] [address] [id number] [place] [address] 66[address] Aug, [facility] [place] [facility] [address] [id number] [place] [address] 279[address] Aug, [facility] [place] [facility] [address] [id number] [place] [address] 6[address] Jul, [facility] [place] [facility] [address] [id number] [place] [address]92 20 Jul, 2012 [facility] [place] [facility] [address] [id number], [place] [address] 10 Jul, 2012 [facility] [place] [facility] [address] [id number], [place] [address] 06 Jul, 2012 [facility] [place] [facility] [address] [id number] [place] [address] 30 Jun, 2012 [facility] [place] [facility] [address] [id number], [place] [address] Jun, [facility] [place] [facility] [address] [id number] [place] [address] Jun, [facility] [place] [facility] [address] [id number] [place] [address] 65[address] Jun, [facility] [place] [facility] [address] [id number] [place] [address]- 6[address] Jun, [facility] [place] [facility] [address] [id number] [place] [address]- 9636 Jun, [facility] [place] [facility] [address] [id number] [place] [address]- 3697 Jun, [facility] [place] [facility] [address] [id number] [place] [address]- 45[address] May, [facility] [place] [facility] [address] [id number] [place] [address]696 May, [facility] [place] [facility] [address] [id number] [place] [address]- 0186 May, [facility] [place] [facility] [address] [id number] [place] [address]- 0696 May, [facility] [place] [facility] [address] [id number] [place] [address]- 3427 May, [facility] [place] [facility] [address] [id number] [place] [address]- 5[address] Apr, [facility] [place] [facility] [address] [id number] [place] [address]- 9395 Apr, [facility] [place] [facility] [address] [id number] [place] [address] Apr, [facility] [place] [facility] [address] [id number] [place] [address]- 9[address] Apr, [facility] [place] [facility] [address] [id number] [place] [address]- 7639 Apr, [facility] [place] [facility] [address] [id number] [place] [address]- 6865 March, [facility] [place] [facility] [address] [id number] [place] [address] 8630 March, [facility] [place] [facility] [address] [id number] [place] [address]- 8[address] March, [facility] [address] [id number] [place] [address] 6765 March, [facility] [address] [id number] [place] [address]- [address] March, [facility] [address] [id number] [place] [address] March, [facility] [address] [id number] [place] [address]- 6[address] March, [facility] [address] [id number] [place] [address]- 3817 March, [facility] [address] [id number] [place] [address]- 1785 March, [facility] [address] [id number] [place] [address]- 8535 March, [facility] [address] [id number] [place] [address]- 7727 30 Feb, 2012 [facility] [address] [id number] [place] [address]- 3058 27 Feb, 2012 [facility] [address] [id number] [place] [address]- 8565 Feb, [facility] [place] [facility] [address] [id number] [place] [address]- 1786 Feb, [facility] [place] [facility] [address] [id number] [place] [address] 1976 Feb, [facility] [place] [facility] [address] [id number] [place] [address]- 0808 Feb, [facility] [place] [facility] [address] [id number] [place] [address]- 5679 12 Feb, 2012 [facility] [place] [facility] [address] [id number] [place] [address]- 1796 Feb, [facility] [address] [id number] [place] [address]- 9267 Feb, [facility] [address] [id number] [place] [address]- [address] 08 Jan, 2012 [facility] [address] [id number] [place] [address] 2546 Jan, [facility] [place] [facility] [address] [id number] [place] [address] Jan, [facility] [address] [id number] [place] [address] Jan, [facility] [address] [id number] [place] [address] Dec, 2011 [facility] [address] [id number] [place] [address] Dec, [facility] [place] [facility] [address] [id number] [place] [address] Nov, [facility] [address] [id number] [place] [address] Nov, [facility] [place] [facility] [address] [id number] [place] [address] Nov, [facility] [address] [id number] [place] [address] Nov, [facility] [place] [facility] [address] [id number] [place] [address] Nov, [facility] [place] [facility] [address] [id number] [place] [address] Oct, [facility] [place] [facility] [address] [id number] [place] [address] Oct, [facility] [place] [facility] [address] [id number] [place] [address] Oct, [facility] [place] [facility] [address] [facility] [id number] [place] [address] Oct, [facility] [address] [id number] [address] Oct, [facility] [address] [id number], [place] [address] Oct, [facility] [address] [id number], [place] [address] Oct, [facility] [address] [id number], [place] [address] Oct, [facility] [address] [facility] [id number], [place] [address] Sep, IMMUNIZATIONS No Known Immunizations SOCIAL HISTORY [...]
--- OUTSIDE RECORDS SUMMARY | 2018-09-04 11:31 | XMS REPORT ---
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 Role Phone SHANIQUE VEGA Unavailable PROBLEMS Type Condition ICD9-CM Code HIY53-LI Code Onset Dates Condition Status SNOMED Code Problem Type 2 diabetes mellitus without complication, without long-term current use of insulin E11.9 Active 554039949 Problem Reactive depression F32.9 Active 82652301 Problem Ventral hernia without obstruction or gangrene K43.9 Active 078204735 Problem 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 Active 33332061 Problem Paroxysmal atrial fibrillation I48.0 Active 865193395 Problem Anxiety F41.9 Active 51048244 Problem Pharyngeal dysphagia R13.13 Active 89431591428639 Problem Insomnia G47.00 Active 045259810 Problem Peripheral vascular disease I73.9 Active 924054068 Problem Coronary artery disease I25.10 Active 93695764 Problem Hyperlipidemia E78.5 Active 75346843 Problem Other chronic pain G89.29 Active 92220143 Problem Hypertension I10 Active 36972487 Problem Low back pain M54.5 Active 213653040 ALLERGIES No Information ENCOUNTERS Encounter Location Date Diagnosis [facility] [id number] [place] [address] 26322- 2763 Jul, [facility] [employer] [address] [place] [id number] Jun, 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 [facility] [id number] [place] [address] 86478- 2056 Jun, Other chronic pain G89.29 [facility] [id number] [place] [address] 25843- 4268 Jun, [facility] [employer] [address] [place] [id number] May, Anxiety F41.9 ; Type 2 diabetes mellitus without complication, without long-term current use of insulin E11.9 ; Hypertension I10 ; Low back pain M54.5 ; Paroxysmal atrial fibrillation I48.0 and 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 [facility] [address] [facility] [id number], [place] [address] 8288 May, Other chronic pain G89.29 [employer] [address] [place] [id number] May, Low back pain M54.5 [facility] [address] [id number], [place] [address] 2831 May, [facility] [address] [facility] [id number] [place] [address] 35785- 5955 Apr, Other chronic pain G89.29 [facility] [address] [facility] [id number], [place] [address] 4221 Apr, [facility] [address] [facility] [id number] [place] [address] 31162- 6339 Apr, [employer] [address] [place] [id number] Apr, Closed compression fracture of L3 lumbar vertebra with routine healing, subsequent encounter S32.030D [employer] [address] [place] [id number] Apr, Low back pain M54.5 [facility] [employer] [address] [place] [id number] Apr, Coccydynia M53.3 [facility] [address] [facility] [id number], [place] [address] 7170 March, [facility] [address] [facility] [id number] [place] [address] 73503- 6169 March, Other chronic pain G89.29 [facility] [address] [facility] [id number], [place] [address] 5713 March, [facility] [id number] [place] [address] 58451- 2186 March, [facility] [address] [id number] [address] 8024 Feb, [facility] [address]00565[place], [place] [address] 5668 Feb, Other chronic pain G89.29 [facility] [employer] [address] [place] [id number] Feb, Other chronic pain G89.29 and Anxiety F41.9 [facility] [address]00565[place], [place] [address] 2566 Feb, [facility] [address]00565[place], [place] [address]- 0430 Jan, [facility] [address]00565100[place], [place] [address]- 2585 Jan, [facility] [address]00565[place], [place] [address]- 8141 Jan, [facility] [address]00565[place], [place] [address]- 2406 Jan, [facility] [address] [id number] [address] 0845 Dec, [facility] [employer] [address] [place] [id number] Dec, Peripheral vascular disease I73.9 ; 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 ; Other chronic pain G89.29 ; Anxiety F41.9 ; Reactive depression F32.9 ; Insomnia G47.00 and Type 2 diabetes mellitus without complication, without long-term current use of insulin E11.9 [facility] [address] [id number] [place] [address] Nov [facility] [id number] [id number] Nov, Anxiety F41.9 [facility] [address] [id number], [place] [address] 5080 Nov, [facility] [address] [id number] [id number] Nov, Anxiety F41.9 [facility] [employer] [address] [place] [id number] Nov, Status post surgery Z98.890 ; Confused R41.0 ; Anxiety F41.9 and Other chronic pain G89.29 [facility] [id number][place] [address] Nov, Other chronic pain G89.29 [facility] [address] [id number] [address] 0846 Oct, [facility] [id number] [place] [address] [id number] Oct, Other chronic pain G89.29 [facility] [address]00565100[place], [place] [address] 0806 Oct, Anxiety F41.9 [facility] [id number] [place] [address] [id number] Sep, Other chronic pain G89.29 [facility] [address] [id number] [address] Sep, [facility] [employer] [address] [place] [id number] Aug, Dysuria R30.0 and Anxiety F41.9 [facility] [address]00565100[place], [place] [address]- 8146 Aug, [facility] [id number] [place] [address] [id number] Aug, Other chronic pain G89.29 [facility] [address] [id number], [place] [address]- 7406 Jul, Other chronic pain G89.29 [facility] [id number] [id number] Jun, [facility] [id number] [id number] Jun, Other chronic pain G89.29 [facility] [address]00565100[place], [place] [address]- 9370 Jun, [facility] [address] [place] [address] 57236- 0762 May, Other chronic pain G89.29 [facility] [address] [place] [address] 34318- 7232 Apr, Other chronic pain G89.29 [facility] [employer] [address] [place] [id number] Apr, Reactive depression F32.9 and Pharyngeal dysphagia R13.13 [employer] [id number] [place] [address] 69782- 5239 Apr, Urinary tract infection without hematuria, site unspecified N39.0 [facility] [address] [place] [address] 36238- 9449 March, Other chronic pain G89.29 [facility] [address] [place] [address] 69266- 1652 Feb, Other chronic pain G89.29 [facility] [address] [place] [address] 63114- 4827 Feb, [facility] [id number] [place] [address] [id number] Feb, [facility] [employer] [address] [place] [id number] Feb, Dysuria R30.0 and Ventral hernia without obstruction or gangrene K43.9 [facility] [address] [id number], [place] [address]- 8170 Jan, Other chronic pain G89.29 [facility] [id number] [place] [address] [id number] Dec, Other chronic pain G89.29 [facility] [address] [place] [address] 797999- 8573 Nov, Other chronic pain G89.29 [facility] [employer] [address] [place] [id number] Nov, Lymphadenitis I88.9 [facility] [id number] [place] [address] 98196- 1626 Nov, Other chronic pain G89.29 [facility] [id number] [place] [address] 64979- 1851 Nov, [facility] [address] [id number] Nov, Other chronic pain G89.29 [facility] [place] [address] [place] [id number] Oct, Low back pain M54.5 ; Hypertension I10 and Type 2 diabetes mellitus without complication, without long-term current use of insulin E11.9 [facility] [id number] [place] [address] 94452- 7581 Oct, [facility] [id number] [place] [address] 84641- 7196 Oct, [facility] [id number] [place] [address] 76992- 9681 Oct, [facility] [id number] [place] [address] 78024- 8145 Oct, [facility] [id number] [place] [address] 75680- 3203 Sep, [facility] [id number] [place] [address] 76946- 4942 Sep, [facility] [address] [place] [address] 77615- 3957 Aug, Other chronic pain G89.29 [facility] [id number] [place] [address] 69702- 0746 Jul, [facility] [id number] [place] [address] 88386- 7373 Jul, [facility] [id number] [place] [address] 56853- 7050 Jul, [facility] [address] [facility] [id number], [place] [address]- 1312 Jun, [facility] [address] [facility] [id number], [place] [address]- 6485 Jun, [facility] [place] [address] [facility] [place] [id number] Jun, Low back pain M54.5 ; Other chronic pain G89.29 and Coronary artery disease I25.10 [facility] [address] [facility] [id number], [place] [address]- 4466 Jun, [facility] [address] [facility] [id number], [place] [address]- 5744 May, [facility] [address] [facility] [id number] [place] [address] 11676- 2397 May, [facility] [address] [id number], [place] [address]- 0113 May, Other chronic pain G89.29 [facility] [address] [facility] [id number], [place] [address]- 3669 May, [facility] [address] [facility] [id number], [place] [address]- 9712 Apr, [facility] [address] [facility] [id number], [place] [address]- 0453 Apr, Acute cystitis without hematuria N30.00 [facility] [address] [id number], [place] [address]- 9434 16 Apr, 2016 Acute cystitis without hematuria N30.00 ; Coronary artery disease I25.10 ; Low back pain M54.5 and Other chronic pain G89.29 [facility] [address] [facility] [id number], [place] [address]- 2467 Apr, Other chronic pain G89.29 [facility] [address] [facility] [id number], [place] [address]- 7658 March, Other chronic pain G89.29 [facility] [address]65[address], [place] [address]- 8251 Feb, [facility] [id number] [place] [address] 96299- 3252 Feb, Arthritis M19.90 [facility] [address]00565[address], [place] [address] 2546 Feb, [facility] [id number] [place] [address] 43097 2540 Jan, [facility] [address] [place] [address] 22415- 0345 Jan, [facility] [id number] [place] [address] 56336- 7680 Jan, Other chronic pain G89.29 [facility] [id number] [place] [address] 47132- 9046 Jan, Hypertension I10 ; Coronary artery disease I25.10 and Insomnia G47.00 [facility] [address]65[address], [place] [address]- 2094 Jan, [facility] [address] [place] [address] 22016- 7623 Dec, Right hip pain M25.551 [facility] [address]65[address], [place] [address]- 4110 Dec, [facility] [address]65[address], [place] [address]- 2544 Dec, [facility] [address]65[address], [place] [address]- 9698 Dec, [facility] [id number] [place] [address] 43026- 2548 Dec, Other chronic pain G89.29 [facility] [address] [place] [address] 976746- 1447 Dec, [facility] [address]65[address], [place] [address]- 7798 Nov, [facility] [address] [id number], [place] [address]- 7173 Nov, Other chronic pain G89.29 [facility] [address], [place] [address]- 3197 Nov, Right hip pain M25.551 and Coronary artery disease I25.10 [facility] [address] [facility] [id number], [place] [address]- 7809 Nov, Other chronic pain G89.29 [facility] [id number] [place] [address] 26058- 0750 Oct, [facility] [id number] [place] [address] 65680- 4854 Oct, [facility] [id number] [place] [address] 92740- 4642 Sep, [facility] [address], [place] [address]- 4423 Sep, [facility] [address], [place] [address]- 9429 Aug, [facility] [address], [place] [address]- 0493 Aug, Hypertension I10 ; Coronary artery disease I25.10 and Arthritis M19.90 [facility] [address], [place] [address]- 4489 Jun, [facility] [address], [place] [address]- 1079 Jun, Essential hypertension, benign 401.1 ; Other chronic pain 338.29 and Chronic airway obstruction, not elsewhere classified 496 [facility] [address], [place] [address]- 5125 Jun, [facility] [address] [id number] [address]- 8873 Jun, [facility] [address] [id number] [place] [address]- 9848 Jun, [facility] [address] [id number] [place] [address]- 0138 May, [facility] [address] [id number] [place] [address]- 3584 May, [facility] [address] [id number] [place] [address]- 8716 Apr, [facility] [address] [id number] [place] [address]- 5403 Apr, [facility] [address] [id number] [place] [address]- 0528 Apr, [facility] [address] [id number] [place] [address]- 1164 March, [facility] [address] [id number] [place] [address]- 7592 March, [facility] [address] [id number] [place] [address]- 5881 March, [facility] [address] [facility] [id number] [place] [address]- 1329 March, [facility] [address] [id number] [place] [address]- 8228 March, Sialadenitis 527.2 [facility] [address] [id number] [place] [address]- 0182 Feb, [facility] [address] [id number] [place] [address]- 1421 Feb, [facility] [address] [id number] [place] [address]- 0161 Feb, [facility] [address] [id number] [place] [address]- 2031 14 Feb, 2015 [facility] [place] [facility] [address] [id number] [place] [address]- 3901 13 Feb, 2015 [facility] [place] [facility] [address] [id number] [place] [address]- 7860 Jan, [facility] [place] [facility] [address] [facility] [id number] [place] [address]- 3883 Jan, [facility] [place] [facility] [address] [facility] [id number] [place] [address]- 1751 Jan, [facility] [place] [facility] [address] [id number] [place] [address]- 4768 Jan, [facility] [place] [facility] [address] [facility] [id number] [place] [address]- 6924 Jan, [facility] [place] [facility] [address] [facility] [id number] [place] [address]- 8915 Jan, [facility] [place] [facility] [address] [facility] [id number] [place] [address]- 5603 Dec, [facility] [place] [facility] [address] [facility] [id number] [place] [address]- 2739 Dec, 2014 [facility] [place] [facility] [address] [facility] [id number] [place] [address]- 6560 Dec, [facility] [place] [facility] [address] [facility] [id number], [place] [address]- 5388 Dec, 2014 [facility] [place] [facility] [address] [facility] [id number], [place] [address]- 7882 Dec, [facility] [place] [facility] [address] [facility] [id number] [place] [address]- 0865 Dec, [facility] [place] [facility] [address] [facility] [id number] [place] [address]- 6202 Nov, [facility] [place] [facility] [address] [facility] [id number] [place] [address]- 7000 Nov, [facility] [place] [facility] [address] [id number] [place] [address]- 8004 Nov, [facility] [place] [facility] [address] [id number] [place] [address]- 6076 Nov, [facility] [place] [facility] [address] [id number] [place] [address]- 3079 Nov, [facility] [place] [facility] [address] [id number] [place] [address]- 8278 Nov, [facility] [place] [facility] [address] [id number] [place] [address]- 5803 Nov, [facility] [place] [facility] [address] [id number] [place] [address]- 1173 Nov, [facility] [place] [facility] [address] [id number] [place] [address]- 9769 Nov, [facility] [place] [facility] [address] [id number] [place] [address]- 2909 Nov, [facility] [place] [facility] [address] [id number] [place] [address]- 2711 Nov, [facility] [place] [facility] [address] [id number] [place] [address]- 4609 Nov, [facility] [place] [facility] [address] [id number] [place] [address]- 4780 Nov, [facility] [place] [facility] [address] [id number] [place] [address]- 1410 Nov, [facility] [place] [facility] [address] [id number] [place] [address]- 5968 Oct, [facility] [place] [facility] [address] [id number] [place] [address]- 2234 Oct, [facility] [place] [facility] [address] [id number] [place] [address]- 9796 Oct, [facility] [place] [facility] [address] [id number] [place] [address]- 3452 Oct, [facility] [place] [facility] [address] [id number] [place] [address]- 4878 Oct, [facility] [place] [facility] [address] [id number] [place] [address]- 8409 Oct, [facility] [place] [facility] [address] [id number] [place] [address]- 2655 Oct, [facility] [place] [facility] [address] [id number] [place] [address]- 2870 Oct, [facility] [place] [facility] [address] [id number] [place] [address]- 4234 Oct, [facility] [place] [facility] [address] [id number] [place] [address]- 6153 Sep, [facility] [place] [facility] [address] [id number] [place] [address] Sep, [facility] [place] [facility] [address] [id number] [place] [address] Sep, [facility] [place] [facility] [address] [id number] [place] [address] Sep, [facility] [place] [facility] [address] [id number] [place] [address] Sep, [facility] [place] [facility] [address] [id number] [place] [address] Sep, [facility] [place] [facility] [address] [id number], [place] [address] Sep, [facility] [place] [facility] [address] [id number] [place] [address] Sep, [facility] [place] [facility] [address] [id number] [place] [address] Sep, [facility] [place] [facility] [address] [id number] [place] [address] Sep, [facility] [place] [facility] [address] [id number] [place] [address] Sep, [facility] [place] [facility] [address] [id number] [place] [address] Sep, [facility] [place] [facility] [address] [id number] [place] [address] Aug, [facility] [place] [facility] [address] [id number] [place] [address] Aug, [facility] [place] [facility] [address] [id number] [place] [address] Aug, [facility] [place] [facility] [address] [id number] [place] [address] Aug, [facility] [place] [facility] [address] [id number] [place] [address] Aug, [facility] [place] [facility] [address] [id number] [place] [address] Aug, [facility] [place] [facility] [address] [id number] [place] [address] Aug, [facility] [place] [facility] [address] [id number] [place] [address] Aug, [facility] [place] [facility] [address] [facility] [id number] [place] [address] 30 Jul, 2013 [facility] [place] [facility] [address] [id number] [place] [address] 30 Sep, 2013 [facility] [place] [facility] [address] [id number] [place] [address] 30 Sep, 2013 [facility] [place] [facility] [address] [id number] [place] [address] 30 Sep, 2013 [facility] [place] [facility] [address] [id number] [place] [address]- [address] 25 Sep, 2013 [facility] [place] [facility] [address] [id number] [place] [address] Jul, [facility] [place] [facility] [address] [id number] [place] [address] Jul, [facility] [place] [facility] [address] [id number] [place] [address] Jul, [facility] [place] [facility] [address] [id number] [place] [address] Jul, [facility] [place] [facility] [address] [id number] [place] [address] Jul, [facility] [place] [facility] [address] [id number] [place] [address] Jun, [facility] [place] [facility] [address] [id number] [place] [address] Jun, [facility] [place] [facility] [address] [id number] [place] [address] Jun, [facility] [place] [facility] [address] [id number] [place] [address] Jun, [facility] [place] [facility] [address] [address] [id number] [place] [address] Jun, [facility] [place] [facility] [address] [id number] [place] [address] Jun, [facility] [place] [facility] [address] [id number] [place] [address] 6043 Jun, [facility] [place] [facility] [address] [id number] [place] [address] 9006 Jun, [facility] [place] [facility] [address] [id number] [place] [address] Jun, [facility] [place] [facility] [address] [id number] [place] [address] 1234 Jun, [facility] [place] [facility] [address] [id number] [place] [address]- 8820 Jun, [facility] [place] [facility] [address] [id number] [place] [address] 6260 Jun, [facility] [place] [facility] [address] [id number] [place] [address]- 96[address] Jun, [facility] [place] [facility] [address] [id number] [place] [address] 2848 Jun, [facility] [place] [facility] [address] [id number] [place] [address] 0408 Jun, [facility] [place] [facility] [address] [id number] [place] [address]- 3792 Jun, [facility] [place] [facility] [address] [id number] [place] [address]- 6830 Jun, [facility] [place] [facility] [address] [id number] [place] [address]- 9043 Jun, [facility] [place] [facility] [address] [id number] [place] [address]- 7814 Jun, [facility] [place] [facility] [address] [id number] [place] [address]- 4183 Jun, [facility] [place] [facility] [address] [id number] [place] [address]- 7613 Jun, [facility] [place] [facility] [address] [id number] [place] [address]- 2126 Jun, [facility] [place] [facility] [address] [id number] [place] [address]- 9565 May, [facility] [place] [facility] [address] [id number] [place] [address]- 4664 May, [facility] [place] [facility] [address] [id number] [place] [address]- 4048 May, [facility] [place] [facility] [address] [id number] [place] [address]- 2815 May, [facility] [place] [facility] [address] [id number] [place] [address]- 5594 May, [facility] [place] [facility] [address] [id number] [place] [address]- 2170 May, 2013 [facility] [place] [facility] [address] [id number] [place] [address]- 0947 May, 2013 [facility] [place] [facility] [address] [id number] [place] [address] May, 2013 [facility] [place] [facility] [address] [id number] [place] [address]- 7211 May, 2013 [facility] [place] [facility] [address] [id number] [place] [address]- 3502 May, 2013 [facility] [place] [facility] [address] [id number] [place] [address]- 2046 May, 2013 [facility] [place] [facility] [address] [id number] [place] [address]- 1423 May, [facility] [place] [facility] [address] [id number] [place] [address]- 1868 May, [facility] [place] [facility] [address] [id number] [place] [address]- 4216 Apr, [facility] [place] [facility] [address] [id number] [place] [address]- 8919 Apr, [facility] [place] [facility] [address] [id number] [place] [address]- 5008 Apr, [facility] [place] [facility] [address] [id number] [place] [address]- 6582 Apr, [facility] [place] [facility] [address] [id number] [place] [address]- 6776 Apr, [facility] [place] [facility] [address] [id number] [place] [address]- 0531 Apr, [facility] [place] [facility] [address] [id number] [place] [address]- 3083 Apr, [facility] [place] [facility] [address] [id number] [place] [address] Apr, [facility] [place] [facility] [address] [id number] [place] [address]- 4427 Apr, [facility] [place] [facility] [address] [id number] [place] [address]- 8105 March, [facility] [place] [facility] [address] [id number] [place] [address]- 3656 March, [facility] [place] [facility] [address] [id number] [place] [address]- 4604 March, [facility] [place] [facility] [address] [id number] [place] [address]- 7834 March, [facility] [place] [facility] [address] [id number] [place] [address]- 8618 March, [facility] [place] [facility] [address] [id number] [place] [address]- 9852 March, [facility] [place] [facility] [address] [id number] [place] [address]- 4515 March, [facility] [place] [facility] [address] [id number] [place] [address]- 9987 March, [facility] [place] [facility] [address] [id number] [place] [address]- 1441 March, [facility] [place] [facility] [address] [id number] [place] [address]- 0057 March, [facility] [place] [facility] [address] [id number] [place] [address]- 9165 March, [facility] [place] [facility] [address] [id number] [place] [address]- 6124 March, [facility] [place] [facility] [address] [id number] [place] March, [facility] [place] [facility] [address] [id number] [place] [address] March, [facility] [place] [facility] [address] [id number] [place] [address]- 2604 March, [facility] [address] [id number] [place] [address]- 9910 March, [facility] [place] [facility] [address] [id number] [place] [address]- 2430 March, [facility] [place] [facility] [address] [id number] [place] [address]- 2046 March, [facility] [place] [facility] [address] [id number] [place] [address]- 5920 March, [facility] [place] [facility] [address] [id number] [place] [address]- 7358 March, [facility] [place] [facility] [address] [id number] [place] [address]- 8253 Feb, [facility] [place] [facility] [address] [id number] [place] [address]- 8488 Feb, [facility] [place] [facility] [address] [id number] [place] [address]- 5076 Feb, [facility] [place] [facility] [address] [id number] [place] [address]- 6174 Feb, [facility] [place] [facility] [address] [id number] [place] [address]- 3211 Feb, [facility] [place] [facility] [address] [id number] [place] [address]- 3131 Feb, [facility] [place] [facility] [address] [id number] [place] [address]- 9688 Feb, [facility] [place] [facility] [address] [id number] [place] [address]- 0251 Feb, [facility] [place] [facility] [address] [id number] [place] [address]- 2813 Jan, [facility] [place] [facility] [address] [id number] [place] [address]- 1389 Jan, [facility] [place] [facility] [address] [id number] [place] [address]- 6381 24 Jan, 2014 [facility] [place] [facility] [address] [id number] [place] [address]- 3840 24 Jan, 2014 [facility] [place] [facility] [address] [id number] [place] [address]- 5117 Jan, [facility] [place] [facility] [address] [id number] [place] [address]- 2277 Jan, [facility] [place] [facility] [address] [id number] [place] [address]- 0052 Jan, [facility] [place] [facility] [address] [id number] [place] [address]- 3284 Jan, [facility] [place] [facility] [address] [facility] [id number] [place] [address]- 4025 Jan, [facility] [place] [facility] [address] [id number] [place] [address]- 2425 Jan, [facility] [place] [facility] [address] [id number] [place] [address]- 6418 27 Dec, 2013 [facility] [place] [facility] [address] [id number] [place] [address]- 4829 26 Dec, 2013 [facility] [place] [facility] [address] [id number] [place] [address]- 6531 26 Dec, 2013 [facility] [place] [facility] [address] [id number] [place] [address]- 3997 2013 [facility] [place] [facility] [address] [id number] [place] [address] 6211 2013 [facility] [place] [facility] [address] [id number] [place] [address]- 6344 13 Dec, 2013 [facility] [place] [facility] [address] [id number] [place] [address]- 1343 12 Dec, 2013 [facility] [place] [facility] [address] [id number], [place] [address]- 4138 Dec, [facility] [address] [id number] [place] [address]- 8201 Nov, [facility] [place] [facility] [address] [id number] [place] [address]- 0400 Nov, [facility] [place] [facility] [address] [id number] [place] [address]- 8677 Nov, [facility] [place] [facility] [address] [id number] [place] [address]- 4945 Nov, [facility] [place] [facility] [address] [id number] [place] [address]- 5088 Nov, [facility] [place] [facility] [address] [id number] [place] [address]- 7557 Nov, [facility] [address] [id number] [place] [address]- 4518 Nov, [facility] [place] [facility] [address] [id number] [place] [address]- 7873 Nov, [facility] [place] [facility] [address] [id number] [place] [address]- 9833 Nov, [facility] [place] [facility] [address] [id number] [place] [address]- 3329 Nov, [facility] [place] [facility] [address] [id number] [place] [address]- 4109 Nov, [facility] [place] [facility] [address] [id number], [place] [address]- 5696 Nov, [facility] [place] [facility] [address] [id number] [place] [address]- 1277 Nov, [facility] [place] [facility] [address] [id number] [place] [address]- 2426 Oct, [facility] [place] [facility] [address] [id number] [place] [address]- 0974 Oct, [facility] [place] [facility] [address] [id number] [place] [address]- 8775 Oct, [facility] [place] [facility] [address] [id number] [place] [address]- 1605 Oct, [facility] [place] [facility] [address] [id number] [place] [address]- 9766 Oct, [facility] [place] [facility] [address] [id number] [place] [address]- 1256 Oct, [facility] [place] [facility] [address] [id number] [place] [address]- 5890 Oct, [facility] [place] [facility] [address] [id number] [place] [address]- 4457 18 Oct, 2013 [facility] [place] [facility] [address] [id number] [place] [address]- 0141 Oct, [facility] [place] [facility] [address] [id number] [place] [address]- 6719 Oct, [facility] [place] [facility] [address] [id number] [place] [address]- 5765 Oct, [facility] [place] [facility] [address] [id number] [place] [address]- 1038 Oct, [facility] [place] [facility] [address] [id number] [place] [address]- 1540 Oct, [facility] [place] [facility] [address] [id number] [place] [address]- 6736 Oct, [facility] [place] [facility] [address] [id number] [place] [address]- 2544 14 Sep, 2013 [facility] [place] [facility] [address] [id number] [place] [address]- 3756 14 Sep, 2013 [facility] [place] [facility] [address] [id number] [place] [address]- 2546 05 Sep, 2013 [facility] [place] [facility] [address] [id number] [place] [address]- 6008 Sep, [facility] [place] [facility] [address] [id number] [place] [address]- 4885 Sep, [facility] [place] [facility] [address] [id number] [place] [address]- 0028 Sep, [facility] [place] [facility] [address] [id number] [place] [address]- 4564 Sep, [facility] [place] [facility] [address] [id number], [place] [address]- 0355 Sep, [facility] [place] [facility] [address] [id number] [place] [address]- 9906 Sep, [facility] [place] [facility] [address] [id number], [place] [address]- 8297 Sep, [facility] [place] [facility] [address] [id number], [place] [address]- 5361 Aug, [facility] [place] [facility] [address] [id number], [place] [address]- 5384 Aug, [facility] [place] [facility] [address] [id number], [place] [address]- 7584 Aug, [facility] [place] [facility] [address] [id number], [place] [address]- 0095 Aug, [facility] [place] [facility] [address] [id number], [place] [address]- 6954 Aug, [facility] [place] [facility] [address] [id number], [place] [address]- 8857 Aug, [facility] [place] [facility] [address] [id number], [place] [address]- 9782 Aug, [facility] [place] [facility] [address] [id number], [place] [address]- 8965 Aug, [facility] [place] [facility] [address] [id number], [place] [address]- 6433 Aug, [facility] [place] [facility] [address] [id number] [place] [address]- 5619 22 Aug, 2012 [facility] [place] [facility] [address] [id number] [place] [address]- 8966 18 Aug, 2012 [facility] [place] [facility] [address] [id number] [place] [address]- 4151 18 Aug, 2012 [facility] [place] [facility] [address] [id number] [place] [address]- 6270 18 Aug, 2012 [facility] [place] [facility] [address] [id number] [place] [address]- 2707 18 Aug, 2012 [facility] [place] [facility] [address] [id number] [place] [address]- 6296 17 Aug, 2012 [facility] [place] [facility] [address] [id number] [place] [address]- 2131 14 Aug, 2013 [facility] [place] [facility] [address] [id number] [place] [address]- 3020 14 Aug, 2013 [facility] [place] [facility] [address] [id number] [place] [address]- 3964 01 Aug, 2013 [facility] [place] [facility] [address] [id number] [place] [address]- 5490 20 Jul, 2012 [facility] [place] [facility] [address] [id number] [place] [address]- 3706 19 Jul, 2012 [facility] [place] [facility] [address] [id number] [place] [address]- 6739 18 Jul, 2012 [facility] [place] [facility] [address] [id number] [place] [address]- 2549 11 Jul, 2012 [facility] [place] [facility] [address] [id number] [place] [address]- 7566 11 Jul, 2013 [facility] [place] [facility] [address] [id number] [place] [address]- 4140 Jun, [facility] [place] [facility] [address] [id number] [place] [address]- 0610 Jun, [facility] [place] [facility] [address] [id number] [place] [address]- 5643 Jun, [facility] [place] [facility] [address] [id number] [place] [address]- 9705 Jun, [facility] [place] [facility] [address] [id number] [place] [address]- 0542 Jun, [facility] [place] [facility] [address] [id number] [place] [address]- 7050 Jun, [facility] [place] [facility] [address] [id number] [place] [address]- 3936 Jun, [facility] [place] [facility] [address] [id number] [place] [address]- 9439 Jun, [facility] [place] [facility] [address] [id number] [place] [address]- 8214 Jun, [facility] [place] [facility] [address] [id number] [place] [address]- 9800 Jun, [facility] [place] [facility] [address] [id number] [place] [address]- 0681 May, [facility] [place] [facility] [address] [id number] [place] [address]- 4853 May, [facility] [place] [facility] [address] [id number] [place] [address]- 1771 May, [facility] [place] [facility] [address] [id number] [place] [address]- 5111 May, [facility] [place] [facility] [address] [id number] [place] [address]- 0488 May, [facility] [place] [facility] [address] [id number] [place] [address]- 3023 May, [facility] [place] [facility] [address] [id number] [place] [address]- 5341 May, [facility] [place] [facility] [address] [id number] [place] [address]- 2546 May, [facility] [address] [id number] [place] [address]- 0219 May, [facility] [place] [facility] [address] [id number] [place] 3003 Apr, [facility] [place] [facility] [address] [id number] [place] [address]- 9325 Apr, [facility] [place] [facility] [address] [id number] [place] [address]- 1995 Apr, [facility] [place] [facility] [address] [id number] [place] [address]- 3244 Apr, [facility] [place] [facility] [address] [id number] [place] [address]- 9191 Apr, [facility] [place] [facility] [address] [id number] [place] [address]- 3403 Apr, [facility] [place] [facility] [address] [id number] [place] [address]- 0772 Apr, [facility] [place] [facility] [address] [id number] [place] [address]- 4372 March, [facility] [place] [facility] [address] [id number] [place] [address]- 8915 Feb, [facility] [place] [facility] [address] [id number] [place] [address]- 3996 Feb, [facility] [place] [facility] [address] [id number] [place] [address]- 2750 Feb, [facility] [place] [facility] [address] [id number] [place] [address]- 9429 Jan, [facility] [place] [facility] [address] [id number] [place] [address]- 6684 Jan, [facility] [place] [facility] [address] [id number] [place] [address]- 4493 Jan, [facility] [place] [facility] [address] [id number] [place] [address]- 3827 14 Jan, 2013 [facility] [address] [id number] [place] [address]- 1195 12 Jan, 2013 [facility] [place] [facility] [address] [id number] [place] [address]- 7927 08 Jan, 2013 [facility] [address] [id number] [place] [address]- 6351 07 Jan, 2013 [facility] [place] [facility] [address] [id number] [place] [address]- 7998 04 Jan, 2013 [facility] [place] [facility] [address] [id number] [place] [address]- 1601 28 Dec, 2012 [facility] [place] [facility] [address] [id number] [place] [address] 25 Dec, 2012 [facility] [place] [facility] [address] [id number] [place] [address] 13 Dec, 2012 [facility] [address] [id number] [place] [address] 11 Dec, 2012 [facility] [place] [facility] [address] [id number] [place] [address] 07 Dec, 2012 [facility] [place] [facility] [address] [id number] [place] [address] 06 Dec, 2012 [facility] [place] [facility] [address] [id number] [place] [address] 05 Dec, 2012 [facility] [place] [facility] [address] [id number] [place] [address] 1998 Nov, [facility] [place] [facility] [address] [id number] [place] [address] 24 Nov, 2012 [facility] [place] [facility] [address] [id number] [place] [address] 7462 18 Nov, 2012 [facility] [place] [facility] [address] [id number] [place] [address] 15 Nov, 2012 [facility] [address] [id number] [place] [address] 10 Nov, 2012 [facility] [place] [facility] [address] [id number] [place] [address] 295[address] 10 Nov, 2012 [facility] [place] [facility] [address] [id number] [place] [address] Nov, [facility] [place] [facility] [address] [id number] [place] [address] 8[address] Oct, [facility] [place] [facility] [address] [id number] [place] [address] Oct, [facility] [place] [facility] [address] [id number] [place] [address] Oct, [facility] [place] [facility] [address] [id number] [place] [address] Oct, [facility] [place] [facility] [address] [id number] [place] [address] Oct, [facility] [place] [facility] [address] [id number] [place] [address] Oct, [facility] [place] [facility] [address] [id number] [place] [address] 66[address] Oct, [facility] [place] [facility] [address] [id number] [place] [address] 3792 Oct, [facility] [place] [facility] [address] [id number] [place] [address] 05 Oct, 2012 [facility] [place] [facility] [address] [id number] [place] [address] Oct, [facility] [place] [facility] [address] [id number] [place] [address] 2[address] Oct, [facility] [place] [facility] [address] [id number] [place] [address] 5474 Oct, [facility] [place] [facility] [address] [id number] [place] [address] Sep, [facility] [place] [facility] [address] [id number] [place] [address] 8[address] Sep, [facility] [place] [facility] [address] [id number] [place] [address]- 7[address] Sep, [facility] [place] [facility] [address] [id number] [place] [address] 74[address] Sep, [facility] [place] [facility] [address] [id number] [place] [address] 9[address] Sep, [facility] [place] [facility] [address] [id number] [place] [address], [place] [address]- [address] Sep, [facility] [place] [facility] [address] [facility] [id number] [place] [address] 0[address] Sep, [facility] [place] [facility] [address] [facility] [id number] [place] [address] 77[address] Sep, [facility] [place] [facility] [address] [id number] [place] [address] 7969 Sep, [facility] [place] [facility] [address] [facility] [id number] [place] [address] 96[address] Sep, [facility] [place] [facility] [address] [facility] [id number] [place] [address] 7812 Sep, [facility] [place] [facility] [address] [facility] [id number] [place] [address] 5962 Aug, [facility] [place] [facility] [address] [id number], [place] [address] Aug, [facility] [place] [facility] [address] [id number] [place] [address] 0881 Aug, [facility] [place] [facility] [address] [facility] [id number] [place] [address]- 0542 Aug, [facility] [place] [facility] [address] [facility] [id number], [place] [address] Aug, [facility] [place] [facility] [address] [id number] [place] [address] 4699 Aug, [facility] [place] [facility] [address] [id number] [place] [address] 2348 Aug, [facility] [place] [facility] [address] [id number] [place] [address]- 9363 Aug, [facility] [place] [facility] [address] [id number] [place] [address] 9759 Aug, [facility] [place] [facility] [address] [id number] [place] [address]- 8242 Aug, [facility] [place] [facility] [address] [id number] [place] [address]- 1674 22 Jul, 2012 [facility] [place] [facility] [address] [id number] [place] [address]- 0304 Jul, [facility] [place] [facility] [address] [id number] [place] [address]- 0162 Jul, [facility] [place] [facility] [address] [id number] [place] [address]- 2178 Jul, [facility] [place] [facility] [address] [id number] [place] [address]- 6856 30 Jun, 2012 [facility] [place] [facility] [address] [id number] [place] [address] 12[address] Jun, [facility] [place] [facility] [address] [id number], [place] [address] 16 Jun, 2012 [facility] [place] [facility] [address] [id number] [place] [address]- 2255 Jun, [facility] [place] [facility] [address] [id number] [place] [address]- 2902 Jun, [facility] [place] [facility] [address] [id number], [place] [address]009 Jun, [facility] [place] [facility] [address] [id number], [place] [address] 240[address] Jun, [facility] [place] [facility] [address] [id number] [place] [address] 5417 May, [facility] [place] [facility] [address] [id number] [place] [address]- 1152 May, [facility] [place] [facility] [address] [id number] [place] [address]- 0636 May, [facility] [place] [facility] [address] [id number] [place] [address]- 3733 May, [facility] [place] [facility] [address] [id number] [place] [address]- 1418 May, [facility] [place] [facility] [address] [id number] [place] [address]- 0407 Apr, [facility] [place] [facility] [address] [id number] [place] [address]- 2075 Apr, [facility] [place] [facility] [address] [id number] [place] [address]- 5309 Apr, [facility] [place] [facility] [address] [id number] [place] [address]- 3815 Apr, [facility] [place] [facility] [address] [id number] [place] [address]- 2427 Apr, [facility] [place] [facility] [address] [id number] [place] [address]- 7797 March, [facility] [place] [facility] [address] [id number] [place] [address] March, [facility] [place] [facility] [address] [id number] [place] [address] March, [facility] [place] [facility] [address] [id number] [place] [address] March, [facility] [place] [facility] [address] [id number] [place] [address] March, [facility] [place] [facility] [address] [id number] [place] [address] March, [facility] [address] [id number] [place] [address] March[facility] [place] [facility] [address] [id number] [place] [address] March, [facility] [address] [id number] [place] [address] March, [facility] [place] [facility] [address] [id number] [place] [address] March, [facility] [address] [id number] [place] [address] Feb, [facility] [place] [facility] [address] [id number] [place] [address] Feb, [facility] [place] [facility] [address] [id number] [place] [address] Feb, [facility] [address] [id number] [place] [address] Feb, [facility] [place] [facility] [address] [id number] [place] [address] Feb, [facility] [place] [facility] [address] [id number] [place] [address] Feb, [facility] [place] [facility] [address] [id number] [place] [address] Feb, [facility] [place] [facility] [address] [id number] [place] [address] Feb, [facility] [place] [facility] [address] [id number] [place] [address] Feb, [facility] [place] [facility] [address] [id number] [place] [address] Jan, [facility] [place] [facility] [address] [id number] [place] [address] Jan, [facility] [address] [id number] [place] [address] Jan, [facility] [place] [facility] [address] [id number] [place] [address] Jan, [facility] [place] [facility] [address] [id number] [place] [address] Dec, [facility] [place] [facility] [address] [id number] [place] [address] Dec, [facility] [place] [facility] [address] [id number] [place] [address] Nov, [facility] [place] [facility] [address] [id number] [place] [address] Nov, [facility] [place] [facility] [address] [id number] [place] [address] Nov, [facility] [place] [facility] [address] [id number] [place] [address] Nov, [facility] [place] [facility] [address] [id number] [place] [address] Nov, [facility] [place] [facility] [address] [id number] [place] [address] Oct, [facility] [place] [facility] [address] [id number] [place] [address] Oct, [facility] [place] [facility] [address] [id number] [place] [address] Oct, [facility] [place] [facility] [address] [id number] [place] [address] Oct, [facility] [place] [facility] [address] [id number] [place] [address] Oct, [facility] [place] [facility] [address] [id number] [place] [address] Oct, [facility] [place] [facility] [address] [facility] [id number] [place] [address] Oct, [facility] [address] [facility] [id number] [place] [address] Oct, [facility] [address] [facility] [id number] [place] [address] Sep, IMMUNIZATIONS No Known Immunizations SOCIAL HISTORY Never Assessed REASON FOR VISIT Increased depression PLAN OF CARE Activity Details Follow Up 3 Months Reason: VITAL SIGNS MEDICATIONS Unknown Medications RESULTS No Results PROCEDURES Procedure Date Ordered Result Body Site [facility] VISIT ESTABLISHED PATIENT April 29, 2017 DOMICIL/R-HOME VISIT EST PAT April 29, 2017 INSTRUCTIONS MEDICATIONS ADMINISTERED No Known Medications MEDICAL (GENERAL) HISTORY Type Description Date 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
--- OUTSIDE RECORDS SUMMARY | 2018-09-04 11:32 | XMS REPORT ---
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 Role Phone SHAHNAZ MARQUEZ Unavailable PROBLEMS Type Condition ICD9-CM Code [id number] Code Onset Dates Condition Status SNOMED Code Problem Type 2 diabetes mellitus without complication, without long-term current use of insulin E11.9 Active 118531394 Problem Reactive depression F32.9 Active 11988694 Problem Ventral hernia without obstruction or gangrene K43.9 Active 958165454 Problem 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 Active 22452301 Problem Paroxysmal atrial fibrillation I48.0 Active 375370432 Problem Anxiety F41.9 Active 92120905 Problem Pharyngeal dysphagia R13.13 Active 39682750320166 Problem Insomnia G47.00 Active 215189239 Problem Peripheral vascular disease I73.9 Active 971671014 Problem Coronary artery disease I25.10 Active 65119004 Problem Hyperlipidemia E78.5 Active 88936162 Problem Other chronic pain G89.29 Active 81607691 Problem Hypertension I10 Active 32733240 Problem Low back pain M54.5 Active 909983833 ALLERGIES No Information ENCOUNTERS Encounter Location Date Diagnosis [facility] [employer] [address] [facility] [place] [id number] Jun, 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 [facility] [address] [id number], [place] [address] Jun, Other chronic pain G89.29 [facility] [address] [id number], [place] [address] Jun, [facility] [employer] [address] [place] [id number] May, Anxiety F41.9 ; Type 2 diabetes mellitus without complication, without long-term current use of insulin E11.9 ; Hypertension I10 ; Low back pain M54.5 ; Paroxysmal atrial fibrillation I48.0 and 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 [facility] [address] [id number], [place] [address] May, Other chronic pain G89.29 [employer] [address] [place] [id number] May, Low back pain M54.5 [facility] [address] [id number] [place] [address] 23315- 9454 May, [facility] [id number] [place] [address] 27931- 3409 Apr, Other chronic pain G89.29 [facility] [id number] [place] [address] 68230- 6232 Apr, [facility] [address] [facility] [id number] [place] [address] 47902- 2946 Apr, [employer] [address] [place] [id number] Apr, Closed compression fracture of L3 lumbar vertebra with routine healing, subsequent encounter S32.030D [employer] [address] [place] [id number] Apr, Low back pain M54.5 [employer] [address] [place] [address] Apr, Coccydynia M53.3 [facility] [address] [facility] [id number], [place] [address] March, [facility] [address] [id number], [place] [address] March, Other chronic pain G89.29 [facility] [address] [id number], [place] [address] 7[address] March, [facility] [address] [facility] [id number], [place] [address] March, [facility] [address] [facility] [id number], [place] [address] Feb, [facility] [address] [id number], [place] [address] Feb, Other chronic pain G89.29 [facility] [employer] [address] [place] [id number] Feb, Other chronic pain G89.29 and Anxiety F41.9 [facility] [address]00565[address], [place] [address] Feb, [facility] [address]00565[address], [place] [address] 7[address] Jan, [facility] [id number] [place] [address] 90119- 8404 Jan, [facility] [id number] [place] [address] 46180- 2176 Jan, [facility] [id number] [place] [address] 79200- 2751 Jan, [facility] [address]00565100[place], [place] [address] Dec, [facility] [employer] [address] [place] [address] Dec, Peripheral vascular disease I73.9 ; 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 [address] [id number] [address] Nov, Anxiety F41.9 [facility] [address] [id number], [place] [address] Nov, [facility] [id number] [address] Nov, Anxiety F41.9 [employer] [address] [place] [id number] Nov, Status post surgery Z98.890 ; Confused R41.0 ; Anxiety F41.9 and Other chronic pain G89.29 [facility] [id number][place] [address] Nov, Other chronic pain G89.29 [facility] [address]00565100[place], [place] [address] Oct, [facility] [id number] [place] [address] [id number] Oct, Other chronic pain G89.29 [facility] [id number] [place] [address] 29190- 1656 Oct, Anxiety F41.9 [facility] [id number] [place] [address] [id number] Sep, Other chronic pain G89.29 [facility] [id number] [place] [id number] Sep, [employer] [address] [place] [id number] Aug, Dysuria R30.0 and Anxiety F41.9 [facility] [address]00565100[place], [place] [address] Aug, [facility] [id number][place] [address] Aug, Other chronic pain G89.29 [facility] [id number] [place] [address] 33410- 3736 Jul, Other chronic pain G89.29 [facility] [id number][place] [address] Jun, [facility] [id number] [place] [address] [id number] Jun, Other chronic pain G89.29 [facility] [address]00565100[place], [place] [address] Jun, [facility] [address]00565100[place], [place] [address] 96[address] May, Other chronic pain G89.29 [facility] [id number] [place] [address] 05086- 8710 Apr, Other chronic pain G89.29 [facility] [employer] [address] [place] [id number] Apr, Reactive depression F32.9 and Pharyngeal dysphagia R13.13 [facility] [id number] [place] [address] 03760- 0424 Apr, Urinary tract infection without hematuria, site unspecified N39.0 [facility] [id number] [place] [address] 44089- 6791 March, Other chronic pain G89.29 [facility] [facility] [id number] [place] [address] 37511- 6222 Feb, Other chronic pain G89.29 [facility] [id number] [place] [address] 75963- 8852 Feb, [facility] [id number] [place] [address] [id number] Feb, Via [employer] [address] [place] [id number] Feb, Dysuria R30.0 and Ventral hernia without obstruction or gangrene K43.9 [facility] [id number] [place] [address] 46558- 6586 Jan, Other chronic pain G89.29 [facility] [id number] [place] [address] [id number] Dec, Other chronic pain G89.29 [facility] [address] [place] [address] 82165782- 8753 Nov, Other chronic pain G89.29 [facility] [employer] [address] [place] [id number] Nov, Lymphadenitis I88.9 [facility] [address] [facility] [id number] [place] [address] 24301- 1520 Nov, Other chronic pain G89.29 [facility] [id number] [place] [address] 31333- 3463 Nov, [facility] [place] [facility] [id number] [place] [address] [id number] Nov, Other chronic pain G89.29 [facility] [address] [place] [id number] Oct, Low back pain M54.5 ; Hypertension I10 and Type 2 diabetes mellitus without complication, without long-term current use of insulin E11.9 [facility] [id number] [place] [address] 51425- 0815 Oct, [facility] [id number] [place] [address] 34002- 5182 Oct, [facility] [id number] [place] [address] 25095- 9210 Oct, [facility] [id number] [place] [address] 37319- 1673 Oct, [facility] [id number] [place] [address] 17548- 7086 Sep, [facility] [id number] [place] [address] 82755- 6536 Sep, [facility] [id number] [place] [address] 82680- 0830 Aug, Other chronic pain G89.29 [facility] [id number] [place] [address] 15360- 2996 Jul, [facility] [id number] [place] [address] 89113- 2614 Jul, [facility] [id number] [place] [address] 693845- 9486 Jul, [facility] [id number] [place] [address] 74092- 8230 Jun, [facility] [address]00565[address], [place] [address]- 5[address] Jun, [facility] [address] [place] [id number] Jun, Low back pain M54.5 ; Other chronic pain G89.29 and Coronary artery disease I25.10 [facility] [id number] [place] [address] 44123- 2926 Jun, [facility] [id number] [place] [address] 94948- 4282 May, [facility] [id number] [place] [address] 66797- 3646 May, [facility] [id number] [place] [address] 92282- 8730 May, Other chronic pain G89.29 [facility] [id number] [place] [address] 69475- 3707 May, [facility] [id number] [place] [address] 04370- 9184 Apr, [facility] [address] [place] [address] 12380- 4922 Apr, Acute cystitis without hematuria N30.00 [facility] [address] [place] [address] 18451- 8205 Apr, Acute cystitis without hematuria N30.00 ; Coronary artery disease I25.10 ; Low back pain M54.5 and Other chronic pain G89.29 [facility] [address], [place] [address]- 1312 Apr, Other chronic pain G89.29 [facility] [address], [place] [address]- 0044 March, Other chronic pain G89.29 [facility] [id number] [place] [address] 97594- 4372 18 Feb, 2016 [facility] [address], [place] [address]- 8115 15 Feb, 2016 Arthritis M19.90 [facility] [id number] [place] [address] 54197- 0213 13 Feb, 2016 [facility] [id number] [place] [address] 90071- 5355 30 Jan, 2016 [facility] [id number] [place] [address] 99485- 6766 Jan, [facility] [id number] [place] [address] 47825- 3608 Jan, Other chronic pain G89.29 [facility] [id number] [place] [address] 78209- 4692 Jan, Hypertension I10 ; Coronary artery disease I25.10 and Insomnia G47.00 [facility] [id number] [place] [address] 14952- 6771 Jan, [facility] [id number] [place] [address] 40340- 2823 Dec, Right hip pain M25.551 [facility] [id number] [place] [address] 91555- 3517 Dec, [facility] [id number] [place] [address] 09632- 5095 Dec, [facility] [address] [place] [address] 80597- 2544 Dec, [facility] [id number] [place] [address] 26453- 4711 Dec, Other chronic pain G89.29 [facility] [address] [place] [address] 41120- 6954 Dec, [facility] [id number] [place] [address] 31257- 7313 Nov, [facility] [address] [place] [address] 61005- 2688 Nov, Other chronic pain G89.29 [facility] [id number] [place] [address] 93657- 7254 Nov, Right hip pain M25.551 and Coronary artery disease I25.10 [facility] [address] 71296- 1414 Nov, Other chronic pain G89.29 [facility] [id number] [place] [address] 26306- 9416 Oct, [facility] [address] 74972- 2275 Oct, [facility] [id number] [place] [address] 55241- 7582 Sep, [facility] [id number] [place] [address] 53739- 0172 Sep, [facility] [id number] [place] [address] 98243- 5768 Aug, [facility] [id number] [place] [address] 33306- 6473 Aug, Hypertension I10 ; Coronary artery disease I25.10 and Arthritis M19.90 [facility] [id number] [place] [address] 49987- 7738 Jun, [facility] [id number] [place] [address] 54291- 5271 Jun, Essential hypertension, benign 401.1 ; Other chronic pain 338.29 and Chronic airway obstruction, not elsewhere classified 496 [facility] [id number] [place] [address] 04969- 3819 Jun, [facility] [id number] [place] [address] 73536- 1754 Jun, [facility] [address] [id number] [place] [address]- 4384 Jun, [facility] [address] [id number] [place] [address]- 6202 May, [facility] [address] [id number] [place] [address]- 4422 May, [facility] [address] [id number] [place] [address]- 0837 Apr, [facility] [address] [id number] [place] [address]- 5823 Apr, [facility] [address] [id number] [place] [address]- 4714 Apr, [facility] [address] [id number] [place] [address]- 3117 March, [facility] [address] [id number] [place] [address]- 6287 March, [facility] [address] [id number] [place] [address]- 2176 March, [facility] [address] [id number] [place] [address]- 5383 March, [facility] [address] [facility] [id number] [place] [address]- 8919 March, Sialadenitis 527.2 [facility] [address] [id number] [place] [address]- 3440 Feb, [facility] [place] [facility] [address] [id number] [place] [address]- 7999 Feb, [facility] [address] [id number] [place] [address]- 1023 Feb, [facility] [address] [id number] [place] 2658 Feb, [facility] [address] [id number], [place] [address]- 4751 Feb, [facility] [place] [facility] [address] [id number] [place] [address]- 9177 Jan, [facility] [place] [facility] [address] [id number] [place] [address]- 4592 Jan, [facility] [place] [facility] [address] [facility] [id number] [place] [address]- 2516 Jan, [facility] [place] [facility] [address] [id number] [place] [address]- 8395 Jan, [facility] [place] [facility] [address] [id number] [place] [address]- 3882 Jan, [facility] [place] [facility] [address] [facility] [id number] [place] [address]- 3399 Jan, [facility] [place] [facility] [address] [id number] [place] [address]- 6227 Dec, [facility] [place] [facility] [address] [facility] [id number] [place] [address]- 2762 Dec, 2014 [facility] [place] [facility] [address] [facility] [id number] [place] [address]- 6076 Dec, 2014 [facility] [place] [facility] [address] [facility] [id number] [place] [address]- 5723 Dec, [facility] [place] [facility] [address] [facility] [id number] [place] [address]- 6559 Dec, 2014 [facility] [place] [facility] [address] [facility] [id number], [place] [address]- 9526 Dec, 2014 [facility] [place] [facility] [address] [id number], [place] [address]- 9240 Nov, [facility] [place] [facility] [address] [facility] [id number], [place] [address]- 7362 Nov, [facility] [place] [facility] [address] [facility] [id number], [place] [address]- 6858 Nov, [facility] [place] [facility] [address] [id number] [place] [address]- 1176 Nov, [facility] [address] [id number] [place] [address]- 5500 Nov, [facility] [place] [facility] [address] [id number] [place] [address]- 9001 Nov, [facility] [address] [id number] [place] [address]- 0747 Nov, [facility] [address] [id number] [place] [address]- 4885 Nov, [facility] [address] [id number] [place] [address]- 2703 Nov, [facility] [address] [id number] [place] [address]- 9887 Nov, [facility] [address] [id number] [place] [address]- 1790 Nov, [facility] [address] [id number] [place] [address]- 1313 Nov, [facility] [address] [id number] [place] [address]- 8619 Nov, [facility] [place] [facility] [address] [id number] [place] [address]- 2779 Nov, [facility] [place] [facility] [address] [id number] [place] [address]- 5372 Oct, [facility] [place] [facility] [address] [id number] [place] [address]- 9812 Oct, [facility] [place] [facility] [address] [id number] [place] [address]- 0069 Oct, [facility] [place] [facility] [address] [id number] [place] [address]- 5579 Oct, [facility] [place] [facility] [address] [id number] [place] [address]- 1432 18 Oct, 2014 [facility] [place] [facility] [address] [id number] [place] [address]- 7501 Oct, [facility] [place] [facility] [address] [id number] [place] [address]- 0077 Oct, [facility] [place] [facility] [address] [id number] [place] [address]- 4978 Oct, [facility] [place] [facility] [address] [id number] [place] [address]- 3858 Oct, [facility] [place] [facility] [address] [id number] [place] [address]- 6478 Sep, [facility] [place] [facility] [address] [id number] [place] [address]- 9835 Sep, [facility] [place] [facility] [address] [id number] [place] [address]- 0778 Sep, [facility] [place] [facility] [address] [id number] [place] [address] Sep, [facility] [place] [facility] [address] [id number] [place] [address] Sep, [facility] [place] [facility] [address] [id number] [place] [address] Sep, [facility] [place] [facility] [address] [id number] [place] [address] Sep, [facility] [place] [facility] [address] [id number] [place] [address] Sep, [facility] [place] [facility] [address] [id number] [place] [address] Sep, [facility] [place] [facility] [address] [id number] [place] [address] Sep, [facility] [place] [facility] [address] [id number] [place] [address] Sep, [facility] [place] [facility] [address] [id number] [place] [address] Sep, [facility] [place] [facility] [address] [id number] [place] [address] 30 Aug, 2014 [facility] [place] [facility] [address] [id number] [place] [address] 30 Aug, 2014 [facility] [place] [facility] [address] [id number] [place] [address] 29 Aug, 2014 [facility] [place] [facility] [address] [id number] [place] [address] 29 Aug, 2014 [facility] [place] [facility] [address] [id number] [place] [address] Aug, [facility] [place] [facility] [address] [id number] [place] [address] Aug, [facility] [place] [facility] [address] [id number] [place] [address] Aug, [facility] [place] [facility] [address] [id number] [place] [address] 17 Aug, 2014 [facility] [place] [facility] [address] [id number] [place] [address]- [address] 30 Jul, 2013 [facility] [place] [facility] [address] [id number] [place] [address]- [address] 30 Sep, 2013 [facility] [place] [facility] [address] [id number] [place] [address]- [address] 30 Sep, 2013 [facility] [place] [facility] [address] [id number] [place] [address]- [address] 30 Sep, 2013 [facility] [place] [facility] [address] [id number] [place] [address]- [address] 25 Sep, 2013 [facility] [place] [facility] [address] [id number] [place] [address]- [address] 25 Sep, 2013 [facility] [place] [facility] [address] [id number] [place] [address] Jul, [facility] [place] [facility] [address] [id number] [place] [address] Jul, [facility] [place] [facility] [address] [id number] [place] [address] Jul, [facility] [place] [facility] [address] [id number] [place] [address] Jul, [facility] [place] [facility] [address] [id number] [place] [address] Jun, [facility] [place] [facility] [address] [id number] [place] [address] Jun, [facility] [place] [facility] [address] [id number] [place] [address]- [address] Jun, [facility] [place] [facility] [address] [id number] [place] [address] Jun, [facility] [place] [facility] [address] [id number] [place] [address] Jun, [facility] [place] [facility] [address] [id number] [place] [address]- [address] Jun, [facility] [place] [facility] [address] [id number] [place] [address] Jun, [facility] [place] [facility] [address] [id number] [place] [address] Jun, [facility] [place] [facility] [address] [id number] [place] [address] Jun, [facility] [place] [facility] [address] [id number] [place] [address] Jun, [facility] [facility] [address] [id number] [place] [address] Jun, [facility] [place] [facility] [address] [id number] [place] [address] 44[address] Jun, [facility] [place] [facility] [address] [id number] [place] [address] Jun, [facility] [place] [facility] [address] [id number] [place] [address] 360[address] Jun, [facility] [place] [facility] [address] [id number] [place] [address] Jun, [facility] [place] [facility] [address] [id number] [place] [address]- 295[address] Jun, [facility] [place] [facility] [address] [id number] [place] [address]- 4005 Jun, [facility] [place] [facility] [address] [id number] [place] [address]- 8153 Jun, [facility] [place] [facility] [address] [id number] [place] [address]- 4120 Jun, [facility] [place] [facility] [address] [id number] [place] [address]- 389[address] Jun, [facility] [place] [facility] [address] [id number] [place] [address]- 1535 Jun, [facility] [place] [facility] [address] [id number] [place] [address]- 0180 Jun, [facility] [place] [facility] [address] [id number] [place] [address]- 2873 May, [facility] [place] [facility] [address] [id number] [place] [address]- 9443 May, [facility] [place] [facility] [address] [id number] [place] [address]- 0762 May, [facility] [place] [facility] [address] [id number] [place] [address]- 6300 May, [facility] [place] [facility] [address] [id number] [place] [address]- 1203 May, [facility] [place] [facility] [address] [id number] [place] [address]- 0630 May, [facility] [place] [facility] [address] [id number] [place] [address]- 1071 May, 2013 [facility] [place] [address] [id number] [place] [address]- 3[address] May, 2013 [facility] [address] [id number] [facility] [address] May, 2013 [facility] [place] [address] [id number] [place] [address]- 9004 May, 2013 [facility] [place] [address] [id number] [place] [address]- 6007 May, 2013 [facility] [place] [address] [id number] [place] [address]- 2088 May, [facility] [place] [facility] [address] [id number] [place] [address]- 2270 May, [facility] [place] [facility] [address] [id number] [place] [address]- 2693 Apr, [facility] [place] [address] [id number] [place] [address]- 9444 Apr, [facility] [place] [facility] [address] [id number] [place] [address]- 3198 Apr, [facility] [address] [id number] [place] [address]- 7455 Apr, [facility] [address] [id number] [place] [address]- 8159 Apr, [facility] [place] [facility] [address] [id number] [place] [address]- 1403 Apr, [facility] [place] [address] [id number] [place] [address]- 5106 Apr, [facility] [address] [id number] [place] [address]- 7037 Apr, [facility] [address] [id number] [place] [address]- 69[address] Apr, [facility] [address] [id number] [place] [address]- 9513 March, [facility] [place] [facility] [address] [id number] [place] [address]- 7107 March, [facility] [address] [id number] [place] [address]- 1649 March, [facility] [place] [address] [id number] [place] [address]- 7173 March, [facility] [place] [facility] [address] [id number] [place] [address]- 9927 March, [facility] [place] [facility] [address] [id number] [place] [address]- 2235 March, [facility] [address] [id number] [place] [address]- 0803 March, [facility] [address] [id number] [place] [address]- 8573 March, [facility] [address] [id number] [place] [address]- 5054 March, [facility] [address] [id number] [place] [address]- 6[address] March, [facility] [address] [id number] [place] [address]- 5876 March, [facility] [address] [id number] [place] [address]- 1884 March, [facility] [address] [id number] [place] [address]- 3091 March, [facility] [address] [id number] [place] [address]- 5676 March, [facility] [address] [id number] [place] [address]- 6019 March, [facility] [address] [id number] [place] [address]- 5606 March, [facility] [address] [id number] [place] [address]- 7394 March, [facility] [address] [id number] [place] [address]- 3135 March, [facility] [address] [id number] [place] [address]- 7132 March, [facility] [address] [id number] [place] [address]- 3029 March, [facility] [address] [id number] [place] [address]- 5255 Feb, [facility] [address] [id number] [place] [address]- 7482 Feb, [facility] [address] [id number] [place] [address]- 5390 Feb, [facility] [address] [id number] [place] [address]- 6834 Feb, [facility] [address] [id number] [place] [address]- 0586 Feb, [facility] [address] [id number] [place] [address]- 7079 Feb, [facility] [address] [id number] [place] [address]- 1807 Feb, [facility] [address] [id number] [place] [address]- 0935 Feb, [facility] [address] [id number] [place] [address]- 3786 Jan, [facility] [address] [id number] [place] [address]- 0280 Jan, [facility] [address] [id number] [place] [address]- 1237 Jan, [facility] [address] [id number] [place] [address]- 2650 Jan, [facility] [address] [id number] [place] [address]- 2771 Jan, [facility] [address] [id number] [place] [address]- 4162 Jan, [facility] [address] [id number] [place] [address]- 0517 Jan, [facility] [address] [id number] [place] [address]- 9056 Jan, [facility] [address] [id number] [place] [address]- 2644 Jan, [facility] [address] [id number] [place] [address]- 5206 Jan, [facility] [address] [id number] [place] [address]- 0043 Dec, [facility] [address] [id number] [place] [address]- 1313 Dec, [facility] [address] [id number] [place] [address]- 6997 Dec, [facility] [address] [id number] [place] [address]- 2056 Dec, [facility] [address] [id number] [place] [address]- 3182 2013 [facility] [address] [id number] [place] [address]- 4918 Dec, [facility] [address] [id number] [place] [address]- 2624 Dec, [facility] [address] [id number] [place] [address]- 0617 Dec, [facility] [address] [id number] [place] [address]- 7517 29 Nov, 2013 [facility] [address] [id number] [place] [address]- 9041 Nov, [facility] [address] [id number] [place] [address]- 7903 Nov, [facility] [address] [id number] [place] [address]- 2989 Nov, [facility] [address] [id number] [place] [address]- 2397 Nov, [facility] [address] [id number] [place] [address]- 3155 Nov, [facility] [address] [id number] [place] [address]- 4199 Nov, [facility] [address] [id number] [place] [address]- 3921 Nov, [facility] [address] [id number] [place] [address]- 2311 Nov, [facility] [address] [id number] [place] [address]- 9574 Nov, [facility] [address] [id number] [place] [address]- 0015 Nov, [facility] [address] [id number] [place] [address]- 7225 Nov, [facility] [address] [id number] [place] [address]- 0579 Nov, [facility] [address] [id number] [place] [address]- 6358 Oct, [facility] [address] [id number] [place] [address]- 2040 Oct, [facility] [address] [id number] [place] [address]- 2091 Oct, [facility] [address] [id number] [place] [address]- 4900 Oct, [facility] [address] [id number] [place] [address]- 2044 Oct, [facility] [address] [id number] [place] [address]- 4062 Oct, [facility] [address] [id number] [place] [address]- 0650 Oct, [facility] [address] [id number] [place] [address]- 8715 Oct, [facility] [address] [id number] [place] [address]- 9541 Oct, [facility] [address] [id number] [place] [address]- 5571 Oct, [facility] [address] [id number] [place] [address]- 3370 Oct, [facility] [address] [id number] [place] [address]- 8115 Oct, [facility] [address] [id number] [place] [address]- 2055 Oct, [facility] [address] [id number] [place] [address]- 9992 Oct, [facility] [address] [id number] [place] [address]- 5134 Sep, [facility] [address] [id number] [place] [address]- 4358 Sep, [facility] [address] [id number] [place] [address]- 3348 Sep, [facility] [address] [id number] [place] [address]- 1623 05 Sep, 2013 [facility] [address] [id number] [place] [address]- 2553 Sep, [facility] [address] [id number] [place] [address]- 5532 Sep, [facility] [address] [id number] [place] 2671 Sep, [facility] [address] [id number] [place] [address]- 1658 Sep, [facility] [address] [id number], [place] [address]- 7860 Sep, [facility] [address] [id number] [place] [address]- 9058 Sep, [facility] [address] [id number] [place] [address]- 1644 Aug, [facility] [address] [id number], [place] [address]- 6289 Aug, [facility] [address] [id number], [place] [address]- 6522 Aug, [facility] [address] [id number], [place] [address]- 7578 Aug, [facility] [address] [id number], [place] [address]- 4279 Aug, [facility] [address] [id number], [place] [address]- 9118 Aug, [facility] [address] [id number], [place] [address]- 6021 Aug, [facility] [address] [id number], [place] [address]- 7258 Aug, [facility] [address] [id number], [place] [address]- 9490 Aug, [facility] [address] [id number], [place] [address]- 7866 Aug, [facility] [address] [id number] [place] [address]- 4605 18 Aug, 2012 [facility] [address] [id number] [place] [address]- 3235 18 Aug, 2013 [facility] [address] [id number] [place] [address]- 2710 18 Aug, 2013 [facility] [address] [id number] [place] [address]- 1214 18 Aug, 2013 [facility] [address] [id number] [place] [address]- 0625 17 Aug, 2013 [facility] [address] [id number] [place] [address]- 1501 14 Aug, 2013 [facility] [address] [id number] [place] [address]- 3805 14 Aug, 2013 [facility] [address] [id number] [place] [address]- 8583 01 Aug, 2013 [facility] [address] [id number] [place] [address]- 8873 20 Jul, 2013 [facility] [address] [id number] [place] [address]- 5782 19 Jul, 2013 [facility] [address] [id number] [place] [address]- 9341 18 Jul, 2013 [facility] [address] [id number] [place] [address]- 3859 11 Jul, 2013 [facility] [address] [id number] [place] [address]- 0375 11 Jul, 2013 [facility] [address] [id number] [place] [address]- 4359 Jun, [facility] [address] [id number] [place] [address]- 7767 Jun, [facility] [address] [id number] [place] [address]- 6712 Jun, [facility] [place] [facility] [address] [id number] [place] [address]- 2533 Jun, [facility] [place] [facility] [address] [id number] [place] [address]- 0134 Jun, [facility] [place] [facility] [address] [id number] [place] [address]- 4107 Jun, [facility] [place] [facility] [address] [id number] [place] [address]- 9660 Jun, [facility] [place] [facility] [address] [id number] [place] [address]- 9165 Jun, [facility] [place] [facility] [address] [id number] [place] [address]- 0755 Jun, [facility] [place] [facility] [address] [id number] [place] [address]- 2840 Jun, [facility] [place] [facility] [address] [id number] [place] [address]- 2208 May, [facility] [place] [facility] [address] [id number] [place] [address]- 9729 May, [facility] [place] [facility] [address] [id number] [place] [address]- 0192 May, [facility] [place] [facility] [address] [id number] [place] [address]- 5892 May, [facility] [place] [facility] [address] [id number] [place] [address]- 8622 May, [facility] [place] [facility] [address] [id number] [place] [address]- 1830 May, [facility] [place] [facility] [address] [id number] [place] [address]- 2077 May, [facility] [place] [facility] [address] [id number] [place] [address]- 9841 May, [facility] [place] [facility] [address] [id number], [place] [address]- 6856 May, [facility] [address] [id number] [place] [address]- 8393 Apr, [facility] [place] [facility] [address] [id number] [place] [address]- 3225 Apr, [facility] [address] [id number] [place] [address]- 6349 Apr, [facility] [address] [id number] [place] [address]- 1842 Apr, [facility] [address] [id number] [place] [address]- 0268 Apr, [facility] [address] [id number] [place] [address]- 6820 Apr, [facility] [address] [facility] [id number] [place] [address]- 2293 Apr, [facility] [address] [id number] [place] [address]- 8271 March, [facility] [address] [id number] [place] [address]- 9582 Feb, [facility] [address] [id number] [place] [address]- 1278 Feb, [facility] [address] [id number] [place] [address]- 6491 Feb, [facility] [place] [facility] [address] [id number], [place] [address]- 0624 28 Jan, 2013 [facility] [place] [facility] [address] [id number] [place] [address]- 4445 21 Jan, 2013 [facility] [place] [facility] [address] [id number] [place] [address]- 8950 19 Jan, 2013 [facility] [place] [facility] [address] [id number] [place] [address]- 6859 14 Jan, 2013 [facility] [place] [facility] [address] [id number] [place] [address]- 5546 12 Jan, 2013 [facility] [place] [facility] [address] [id number] [place] [address]- 0023 08 Jan, 2013 [facility] [place] [facility] [address] [id number] [place] [address]- 9375 07 Jan, 2013 [facility] [place] [facility] [address] [id number] [place] [address]- 8771 04 Jan, 2013 [facility] [place] [facility] [address] [id number] [place] [address]- 5445 28 Dec, 2012 [facility] [place] [facility] [address] [id number] [place] [address]- 6006 25 Dec, 2012 [facility] [place] [facility] [address] [id number] [place] [address]- 6531 13 Dec, 2012 [facility] [place] [facility] [address] [id number] [place] [address]- 2351 Dec, [facility] [place] [facility] [address] [id number] [place] [address]- 1214 07 Dec, 2012 [facility] [place] [facility] [address] [facility] [id number] [place] [address]- 9441 06 Dec, 2012 [facility] [place] [facility] [address] [facility] [id number] [place] [address]- 2989 05 Dec, 2012 [facility] [place] [facility] [address] [id number] [place] [address]- 6023 Nov, [facility] [place] [facility] [address] [id number] [place] [address]- 4166 24 Nov, 2012 [facility] [place] [facility] [address] [id number] [place] [address]- 7607 18 Nov, 2012 [facility] [place] [facility] [address] [id number] [place] [address]- 7568 15 Nov, 2012 [facility] [place] [facility] [address] [id number] [place] [address]- 7814 Nov, [facility] [address] [id number] [place] [address] Nov, [facility] [place] [facility] [address] [id number] [place] [address] Nov, [facility] [address] [facility] [id number] [place] [address] Oct, [facility] [place] [facility] [address] [id number] [place] [address] Oct, [facility] [address] [id number] [place] [address] Oct, [facility] [place] [facility] [address] [id number] [place] [address] Oct, [facility] [address] [id number] [place] [address] Oct, [facility] [place] [facility] [address] [id number] [place] [address] Oct, [facility] [address] [facility] [id number] [place] [address] Oct, [facility] [place] [facility] [address] [facility] [id number] [place] [address] Oct, [facility] [place] [facility] [address] [facility] [id number] [place] [address] Oct, [facility] [place] [facility] [address] [id number] [place] [address] Oct, [facility] [place] [facility] [address] [id number] [place] [address] 8467 Oct, [facility] [place] [facility] [address] [id number] [place] [address] Oct, [facility] [place] [facility] [address] [facility] [id number] [place] [address]- [address] Sep, [facility] [place] [facility] [address] [id number] [place] [address] Sep, [facility] [place] [facility] [address] [id number] [place] [address] Sep, [facility] [place] [facility] [address] [id number] [place] [address]- 9595 Sep, [facility] [place] [facility] [address] [id number] [place] [address]- [address] Sep, [facility] [place] [facility] [address] [id number] [place] [address]- [address] Sep, [facility] [place] [facility] [address] [id number] [place] [address]- 1717 Sep, [facility] [place] [facility] [address] [id number] [place] [address] 3280 Sep, [facility] [place] [facility] [address] [id number] [place] [address]- [address]188 Sep, [facility] [place] [facility] [address] [id number] [place] [address] 39[address] Sep, [facility] [place] [facility] [address] [id number] [place] [address]- [address] Sep, [facility] [place] [facility] [address] [facility] [id number] [place] [address] Aug, [facility] [place] [facility] [address] [id number] [place] [address] 1405 Aug, [facility] [place] [facility] [address] [id number] [place] [address] Aug, [facility] [place] [facility] [address] [id number] [place] [address]- 4[address] Aug, [facility] [place] [facility] [address] [id number] [place] [address]- [address] Aug, [facility] [place] [facility] [address] [id number] [place] [address]- 2708 Aug, [facility] [place] [facility] [address] [id number] [place] [address] 8666 Aug, [facility] [place] [facility] [address] [id number] [place] [address]- 4[address] Aug, [facility] [place] [facility] [address] [id number] [place] [address]- 79[address] Aug, [facility] [place] [facility] [address] [id number] [place] [address] 8339 Aug, [facility] [place] [facility] [address] [id number] [place] [address]- 58[address] Jul, [facility] [place] [facility] [address] [id number] [place] [address] Jul, [facility] [place] [facility] [address] [id number] [place] [address] 88[address] Jul, [facility] [place] [facility] [address] [id number] [place] [address]- 8198 Jul, [facility] [place] [facility] [address] [id number] [place] [address]- [address] Jun, [facility] [place] [facility] [address] [id number] [place] [address]- 2044 Jun, [facility] [place] [facility] [address] [id number] [place] [address]- 2946 Jun, [facility] [place] [facility] [address] [id number], [place] [address] Jun, [facility] [place] [facility] [address] [id number] [place] [address]- 9339 Jun, [facility] [place] [facility] [address] [id number] [place] [address]- 9568 Jun, [facility] [place] [facility] [address] [id number] [place] [address]- [address] Jun, [facility] [place] [facility] [address] [id number] [place] [address] 24 May, 2012 [facility] [place] [facility] [address] [id number] [place] [address]- 5380 May, [facility] [place] [facility] [address] [id number] [place] [address]- 8936 May, [facility] [place] [facility] [address] [id number] [place] [address]- 9486 May, [facility] [place] [facility] [address] [id number] [place] [address]- [address]500 May, [facility] [place] [facility] [address] [id number] [place] [address]- 0497 Apr, [facility] [place] [facility] [address] [id number] [place] [address]- 8367 Apr, [facility] [place] [facility] [address] [id number] [place] [address]- 7925 Apr, [facility] [place] [facility] [address] [id number] [place] [address]- 7544 Apr, [facility] [place] [facility] [address] [id number] [place] [address]- [address]381 Apr, [facility] [place] [facility] [address] [id number] [place] [address]- 6562 March, [facility] [place] [facility] [address] [id number] [place] [address] March, [facility] [place] [facility] [address] [id number] [place] [address]- 57[address] March, [facility] [place] [facility] [address] [id number] [place] [address]- 8786 March, [facility] [place] [facility] [address] [id number] [place] [address]- 9531 March, [facility] [place] [facility] [address] [id number] [place] [address]- 9862 March, [facility] [place] [facility] [address] [id number] [place] [address]- 3772 March, [facility] [address] [id number] [place] [address]- 9268 March, [facility] [place] [facility] [address] [id number] [place] [address]- 2937 March, [facility] [address] [id number] [place] [address]- 4432 March, [facility] [address] [id number] [place] [address]- 489[address] Feb, [facility] [place] [facility] [address] [id number] [place] [address]- 3620 Feb, [facility] [address] [id number] [place] [address]- 2820 Feb, [facility] [address] [id number] [place] [address]- 3752 Feb, [facility] [address] [id number] [place] [address]- 7496 Feb, [facility] [place] [facility] [address] [id number] [place] [address]- 4480 Feb, [facility] [place] [facility] [address] [id number] [place] [address]- 8997 Feb, [facility] [place] [facility] [address] [id number] [place] [place] [address] Feb, [facility] [place] [facility] [address] [id number] [place] [address] Feb, [facility] [place] [facility] [address] [id number] [place] [address] Jan, [facility] [place] [facility] [address] [id number] [place] [address] Jan, [facility] [place] [facility] [address] [id number] [place] [address] Jan, [facility] [address] [id number] [place] [address] Jan, [facility] [address] [id number] [place] [address] Dec, [facility] [address] [id number] [place] [address] Dec, [facility] [address] [id number] [place] [address] Nov, [facility] [address] [id number] [place] [address] Nov, [facility] [address] [id number] [place] [address] Nov, [facility] [address] [id number] [place] [address] Nov, [facility] [address] [id number] [place] [address] Nov, [facility] [address] [id number] [place] [address] Oct, [facility] [address] [id number] [place] [address] Oct, [facility] [address] [id number] [place] [address] Oct, [facility] [place] [facility] [address] [id number] [place] [address] Oct, [facility] [place] [facility] [address] [id number] [place] [address] Oct, [facility] [place] [facility] [address] [id number] [place] [address] Oct, [facility] [place] [facility] [address] [id number] [place] [address] Oct, [facility] [place] [place] [facility] [address] [facility] [id number] [place] [address] Oct, [facility] [address] [facility] [id number] [place] [address] Sep, IMMUNIZATIONS No Known Immunizations SOCIAL HISTORY Never Assessed REASON FOR VISIT readmit to Assisted living PLAN OF CARE Activity Details Follow Up prn Reason: VITAL SIGNS MEDICATIONS No Known Medications RESULTS No Results PROCEDURES Procedure Date Ordered Result Body Site Minor complication (15 mins) June 10, 2018 INSTRUCTIONS MEDICATIONS ADMINISTERED No Known Medications MEDICAL (GENERAL) HISTORY Type Description Date 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
--- OUTSIDE RECORDS SUMMARY | 2018-09-04 11:33 | XMS REPORT ---
Author Author SHAHNAZ MARQUEZ [facility] Address [address] [place] [address] Care Team Providers Care Collar Turner Operator Name Role Phone SHAHNAZ MARQUEZ Unavailable PROBLEMS Type Condition ICD9-CM Code WOW43-TJ Code Onset Dates Condition Status SNOMED Code Problem Type 2 diabetes mellitus without complication, without long-term current use of insulin E11.9 Active 373462960 Problem Reactive depression F32.9 Active 34616004 Problem Ventral hernia without obstruction or gangrene K43.9 Active 878851450 Problem 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 Active 07743378 Problem Paroxysmal atrial fibrillation I48.0 Active 613404376 Problem Anxiety F41.9 Active 56664858 Problem Pharyngeal dysphagia R13.13 Active 03842720756690 Problem Insomnia G47.00 Active 863245545 Problem Peripheral vascular disease I73.9 Active 840318143 Problem Coronary artery disease I25.10 Active 26457552 Problem Hyperlipidemia E78.5 Active 04008291 Problem Other chronic pain G89.29 Active 27092083 Problem Hypertension I10 Active 90386653 Problem Low back pain M54.5 Active 026831473 ALLERGIES No Information ENCOUNTERS Encounter Location Date Diagnosis Via [employer] [address] [place] [id number] Jun, 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 [facility] [address] [id number] [address] Jun, Other chronic pain G89.29 [facility] [address] [id number] [address] Jun, Via [employer] [address] [place] [id number] May, Anxiety F41.9 ; Type 2 diabetes mellitus without complication, without long-term current use of insulin E11.9 ; Hypertension I10 ; Low back pain M54.5 ; Paroxysmal atrial fibrillation I48.0 and 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 [facility] [address] [id number] [address] May, Other chronic pain G89.29 [facility] [employer] [address] [place] [id number] May, Low back pain M54.5 [facility] [id number] [place] [address] 65873- 3851 May, [facility] [address] [id number] [place] [address] 40642- 4674 Apr, Other chronic pain G89.29 [facility] [address] [id number] [place] [address] 83446- 2656 Apr, [facility] [address] [facility] [id number] [place] [address] 96551- 3043 Apr, Via [employer] [address] [place] [id number] Apr, Closed compression fracture of L3 lumbar vertebra with routine healing, subsequent encounter S32.030D [facility] [employer] [address] [place] [id number] Apr, Low back pain M54.5 [facility] [employer] [address] [place] [id number] Apr, Coccydynia M53.3 [facility] [address] [facility] [id number] [place] [address] March, [facility] [address] [id number] [place] [address] 40[address] March, Other chronic pain G89.29 [facility] [address] [id number] [place] [address] 15[address] March, [facility] [address] [facility] [id number] [place] [address] 1786 March, [facility] [address] [facility] [id number] [place] [address] 5[address] Feb, [facility] [address] [id number] [address] 7981 Feb, Other chronic pain G89.29 Via [employer] [address] [place] [id number] Feb, Other chronic pain G89.29 and Anxiety F41.9 [facility] [address]65[address] [address] Feb, [facility] [address]00565[address] [address] 9[address] Jan, [facility] [id number] [place] [address] 36366- 7911 Jan, [facility] [id number] [place] [address] 58872- 7989 Jan, [facility] [id number] [place] [address] 93223- 3370 Jan, [facility] [address]00565[address] [address] Dec, Via [employer] 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 ; Other chronic pain G89.29 ; Anxiety F41.9 ; Reactive depression F32.9 ; Insomnia G47.00 and Type 2 diabetes mellitus without complication, without long-term current use of insulin E11.9 [facility] [address] [id number] [place] [address] Nov [facility] [address] [id number] [place] [id number] Nov, Anxiety F41.9 [facility] [address] [id number] [address] 4[address] Nov, [facility] [id number] [place] [id number] Nov, Anxiety F41.9 [facility] [employer] [address] [place] [id number] Nov, Status post surgery Z98.890 ; Confused R41.0 ; Anxiety F41.9 and Other chronic pain G89.29 [facility] [id number] [place] [address] Nov, Other chronic pain G89.29 [facility] [address]00565100[place] [address]16 Oct, [facility] [id number] [place] [id number] Oct, Other chronic pain G89.29 [facility] [id number] [place] [address] 89192- 7336 Oct, Anxiety F41.9 [facility] [id number] [place] [address] [id number] Sep, Other chronic pain G89.29 [facility] [id number] [place] [address] [id number] Sep, Via [employer] [address] [place] [id number] Aug, Dysuria R30.0 and Anxiety F41.9 [facility] [address]00565100[place] [address] Aug, [facility] [id number] [place] [address] Aug, Other chronic pain G89.29 [facility] [id number] [place] [address] 14559- 3896 Jul, Other chronic pain G89.29 [facility] [id number] [place] [address] Jun, [facility] [id number] [place] [address] [id number] Jun, Other chronic pain G89.29 [facility] [address]00565[address] [address] Jun, [facility] [address]00565100[place] [address] 6367 May, Other chronic pain G89.29 [facility] [address] [place] [address] 76413- 3555 Apr, Other chronic pain G89.29 Via [facility] [employer] [address] [place] [id number] Apr, Reactive depression F32.9 and Pharyngeal dysphagia R13.13 [facility] [address] [place] [address] 60282- 1126 Apr, Urinary tract infection without hematuria, site unspecified N39.0 [facility] [id number] [place] [address] 30901- 2692 March, Other chronic pain G89.29 [id number] [place] [address] 45420- 4565 Feb, Other chronic pain G89.29 [facility] [id number] [place] [address] 74982- 2293 Feb, [facility] [id number] [place] [address] [id number] Feb, Via [employer] [address] [place] [id number] Feb, Dysuria R30.0 and Ventral hernia without obstruction or gangrene K43.9 [facility] [address] [place] [address] 55210- 3425 Jan, Other chronic pain G89.29 [facility] [id number] [place] [address] [id number] Dec, Other chronic pain G89.29 [facility] [address] [place] [address] 69187354- 9558 Nov, Other chronic pain G89.29 Via [employer] [address] [place] [id number] Nov, Lymphadenitis I88.9 [facility] [address] [facility] [id number] [place] [address] 39703- 3673 Nov, Other chronic pain G89.29 [facility] [id number] [place] [address] 93052- 1556 Nov, [facility] [place] [facility] [id number] [place] [address] [id number] Nov, Other chronic pain G89.29 Via [facility] [address] [place] [address] Oct, Low back pain M54.5 ; Hypertension I10 and Type 2 diabetes mellitus without complication, without long-term current use of insulin E11.9 [facility] [id number] [place] [address] 82340- 2367 Oct, [facility] [id number] [place] [address] 64651- 3447 Oct, [facility] [id number] [place] [address] 08196- 8570 Oct, [facility] [id number] [place] [address] 26501- 2026 Oct, [facility] [id number] [place] [address] 43799- 0328 Sep, [facility] [id number] [place] [address] 06578- 8806 Sep, [facility] [id number] [place] [address] 61198- 9638 Aug, Other chronic pain G89.29 [facility] [id number] [place] [address] 26435- 5030 Jul, [facility] [id number] [place] [address] 99477- 7970 Jul, [facility] [id number] [place] [address] 181003- 7121 Jul, [facility] [id number] [place] [address] 61262- 2678 Jun, [facility] [address]00565[address] [address]- 9118 Jun, Via [facility] [address] [place] [id number] Jun, Low back pain M54.5 ; Other chronic pain G89.29 and Coronary artery disease I25.10 [facility] [id number] [place] [address] 01200- 6355 Jun, [facility] [id number] [place] [address] 30834- 7023 May, [facility] [id number] [place] [address] 81286- 0001 May, [facility] [id number] [place] [address] 55933- 5245 May, Other chronic pain G89.29 [facility] [id number] [place] [address] 21114- 1665 May, [facility] [id number] [place] [address] 43649- 4999 Apr, [facility] [id number] [place] [address] 25189- 7372 Apr, Acute cystitis without hematuria N30.00 [facility] [address] [place] [address] 35085- 0472 Apr, Acute cystitis without hematuria N30.00 ; Coronary artery disease I25.10 ; Low back pain M54.5 and Other chronic pain G89.29 [facility] [address] [address]- 2391 Apr, Other chronic pain G89.29 [facility] [address] [address]- 6488 March, Other chronic pain G89.29 [facility] [id number] [place] [address] 71503- 4710 18 Feb, 2016 [facility] [address] [address]- 8749 15 Feb, 2016 Arthritis M19.90 [facility] [id number] [place] [address] 62748- 2877 13 Feb, 2016 [facility] [id number] [place] [address] 65181- 9613 30 Jan, 2016 [facility] [id number] [place] [address] 10424- 4722 Jan, [facility] [id number] [place] [address] 65420- 2370 Jan, Other chronic pain G89.29 [facility] [id number] [place] [address] 28127- 1869 Jan, Hypertension I10 ; Coronary artery disease I25.10 and Insomnia G47.00 [facility] [id number] [place] [address] 64493- 3037 Jan, [facility] [id number] [place] [address] 59999- 2087 Dec, Right hip pain M25.551 [facility] [id number] [place] [address] 12539- 5733 Dec, [facility] [id number] [place] [address] 31511- 6640 Dec, [facility] [id number] [place] [address] 98595- 2543 Dec, [facility] [id number] [place] [address] 89215- 4205 Dec, Other chronic pain G89.29 [facility] [address] [place] [address] 57929- 1671 Dec, [facility] [id number] [place] [address] 66609- 5895 Nov, [facility] [id number] [place] [address] 82608- 6947 Nov, Other chronic pain G89.29 [facility] [id number] [place] [address] 14278- 7576 Nov, Right hip pain M25.551 and Coronary artery disease I25.10 [facility] [address] 14666- 7300 Nov, Other chronic pain G89.29 [facility] [id number] [place] [address] 57480- 6178 Oct, [facility] [address] 95908- 0947 Oct, [facility] [id number] [place] [address] 64143- 2610 Sep, [facility] [id number] [place] [address] 22190- 3511 Sep, [facility] [id number] [place] [address] 07323- 5533 Aug, [facility] [id number] [place] [address] 11633- 1845 Aug, Hypertension I10 ; Coronary artery disease I25.10 and Arthritis M19.90 [facility] [id number] [place] [address] 15871- 5386 Jun, [facility] [id number] [place] [address] 22391- 3914 Jun, Essential hypertension, benign 401.1 ; Other chronic pain 338.29 and Chronic airway obstruction, not elsewhere classified 496 [facility] [id number] [place] [address] 91627- 9754 Jun, [facility] [id number] [place] [address] 83422- 0712 Jun, [facility] [address] [id number] [place] [address]- 4164 Jun, [facility] [address] [id number] [place] [address]- 9893 May, [facility] [address] [id number] [place] [address]- 2380 May, [facility] [address] [id number] [place] [address]- 8799 Apr, [facility] [address] [id number] [place] [address]- 3398 Apr, [facility] [address] [id number] [place] [address]- 6445 Apr, [facility] [address] [id number] [place] [address]- 2602 March, [facility] [address] [id number] [place] [address]- 5473 March, [facility] [address] [id number] [place] [address]- 9999 March, [facility] [address] [id number] [place] [address]- 6783 March, [facility] [address] [facility] [id number] [place] [address]- 0171 March, Sialadenitis 527.2 [facility] [address] [id number] [place] [address]- 5990 Feb, [facility] [place] [facility] [address] [id number] [place] [address]- 8949 Feb, [facility] [address] [id number] [place] [address]- 7564 Feb, [facility] [address] [id number] [place] 1711 Feb, [facility] [address] [id number] [place] [address]- 0517 Feb, [facility] [place] [facility] [address] [id number] [place] [address]- 3583 Jan, [facility] [place] [facility] [address] [id number] [place] [address]- 3700 Jan, [facility] [place] [facility] [address] [facility] [id number] [place] [address]- 9079 Jan, [facility] [place] [facility] [address] [id number] [place] [address]- 5296 Jan, [facility] [place] [facility] [address] [id number] [place] [address]- 1356 Jan, [facility] [place] [facility] [address] [facility] [id number] [place] [address]- 2677 Jan, [facility] [place] [facility] [address] [id number] [address]- 9302 Dec, [facility] [place] [facility] [address] [facility] [id number] [place] [address]- 2038 Dec, 2014 [facility] [place] [facility] [address] [facility] [id number] [place] [address]- 4189 Dec, 2014 [facility] [place] [facility] [address] [facility] [id number] [place] [address]- 3271 Dec, [facility] [place] [facility] [address] [facility] [id number] [place] [address]- 5888 Dec, 2014 [facility] [place] [facility] [address] [facility] [id number] [place] [address]- 3552 Dec, 2014 [facility] [place] [facility] [address] [id number] [place] [address]- 3270 Nov, [facility] [place] [facility] [address] [facility] [id number] [place] [address]- 6920 Nov, [facility] [place] [facility] [address] [facility] [id number] [place] [address]- 0303 Nov, [facility] [place] [facility] [address] [id number] [place] [address]- 1657 Nov, [facility] [address] [id number] [place] [address]- 4631 Nov, [facility] [place] [facility] [address] [id number] [place] [address]- 6785 Nov, [facility] [address] [id number] [place] [address]- 3657 Nov, [facility] [address] [id number] [place] [address]- 7908 Nov, [facility] [address] [id number] [place] [address]- 4498 Nov, [facility] [address] [id number] [place] [address]- 3289 Nov, [facility] [address] [id number] [place] [address]- 3727 Nov, [facility] [address] [id number] [place] [address]- 6872 Nov, [facility] [address] [id number] [place] [address]- 6331 Nov, [facility] [place] [facility] [address] [id number] [place] [address]- 5202 Nov, [facility] [place] [facility] [address] [id number] [place] [address]- 2145 Oct, [facility] [place] [facility] [address] [id number] [place] [address]- 3603 Oct, [facility] [place] [facility] [address] [id number] [place] [address]- 2266 Oct, [facility] [place] [facility] [address] [id number] [place] [address]- 9403 Oct, [facility] [place] [facility] [address] [id number] [place] [address]- 2535 18 Oct, 2014 [facility] [place] [facility] [address] [id number] [place] [address]- 2451 Oct, [facility] [place] [facility] [address] [id number] [place] [address]- 5000 Oct, [facility] [place] [facility] [address] [id number] [place] [address]- 2630 Oct, [facility] [place] [facility] [address] [id number] [place] [address]- 0332 Oct, [facility] [place] [facility] [address] [id number] [place] [address]- 7975 Sep, [facility] [place] [facility] [address] [id number] [place] [address]- 0654 Sep, [facility] [place] [facility] [address] [id number] [place] [address]- 9155 Sep, [facility] [place] [facility] [address] [id number] [place] [address]- 2203 Sep, [facility] [place] [facility] [address] [id number] [place] [address]- 6446 Sep, [facility] [place] [facility] [address] [id number] [place] [address]- 2166 Sep, [facility] [place] [facility] [address] [id number] [place] [address]- 8401 Sep, [facility] [place] [facility] [address] [id number] [place] [address]- 4397 Sep, [facility] [place] [facility] [address] [id number] [place] [address] Sep, [facility] [place] [facility] [address] [id number] [place] [address] Sep, [facility] [place] [facility] [address] [id number] [place] [address] Sep, [facility] [place] [facility] [address] [id number] [place] [address] Sep, [facility] [place] [facility] [address] [id number] [place] [address] 30 Aug, 2014 [facility] [place] [facility] [address] [id number] [place] [address] 30 Aug, 2014 [facility] [place] [facility] [address] [id number] [place] [address] 29 Aug, 2014 [facility] [place] [facility] [address] [id number] [place] [address] 29 Aug, 2014 [facility] [place] [facility] [address] [id number] [place] [address] Aug, [facility] [place] [facility] [address] [id number] [place] [address] Aug, [facility] [place] [facility] [address] [id number] [place] [address] Aug, [facility] [place] [facility] [address] [id number] [place] [address]- [address] 17 Aug, 2014 [facility] [place] [facility] [address] [id number] [place] [address]- [address] 30 Jul, 2013 [facility] [place] [facility] [address] [id number] [place] [address] 30 Sep, 2013 [facility] [place] [facility] [address] [id number] [place] [address]- [address] 30 Sep, 2013 [facility] [place] [facility] [address] [id number] [place] [address]- [address] 30 Sep, 2013 [facility] [place] [facility] [address] [id number] [place] [address]- [address] 25 Sep, 2013 [facility] [place] [facility] [address] [id number] [place] [address]- [address] 25 Sep, 2013 [facility] [place] [facility] [address] [id number] [place] [address]- [address] Jul, [facility] [place] [facility] [address] [id number] [place] [address] Jul, [facility] [place] [facility] [address] [id number] [place] [address] Jul, [facility] [place] [facility] [address] [id number] [place] [address] Jul, [facility] [place] [facility] [address] [id number] [place] [address]- [address] Jun, [facility] [place] [facility] [address] [id number] [place] [address]- [address] Jun, [facility] [place] [facility] [address] [id number] [place] [address] Jun, [facility] [place] [facility] [address] [id number] [place] [address] Jun, [facility] [place] [facility] [address] [id number] [place] [address] Jun, [facility] [place] [facility] [address] [id number] [place] [address] Jun, [facility] [place] [facility] [address] [id number] [place] [address]- [address] Jun, [facility] [place] [facility] [address] [id number] [place] [address]- [address] Jun, [facility] [place] [facility] [address] [id number] [place] [address] Jun, [facility] [place] [facility] [address] [id number] [place] [address] Jun, [facility] [place] [facility] [address] [address] [id number] [place] [address] Jun, [facility] [place] [facility] [address] [id number] [place] [address] 8376 Jun, [facility] [place] [facility] [address] [id number] [place] [address] 4264 Jun, [facility] [place] [facility] [address] [id number] [place] [address] 8845 Jun, [facility] [place] [facility] [address] [id number] [place] [address]- 4282 Jun, [facility] [place] [facility] [address] [id number] [place] [address]- 7251 Jun, [facility] [place] [facility] [address] [id number] [place] [address]- 3210 Jun, [facility] [place] [facility] [address] [id number] [place] [address] 5241 Jun, [facility] [place] [facility] [address] [id number] [place] [address] 8980 Jun, [facility] [place] [facility] [address] [id number] [place] [address]- 3249 Jun, [facility] [place] [facility] [address] [id number] [place] [address]- 2587 Jun, [facility] [place] [facility] [address] [id number] [place] [address]- 7235 Jun, [facility] [place] [facility] [address] [id number] [place] [address]- 7299 May, [facility] [place] [facility] [address] [id number] [place] [address]- 2943 May, [facility] [place] [facility] [address] [id number] [place] [address]- 2569 May, [facility] [place] [facility] [address] [id number] [place] [address]- 7292 May, [facility] [place] [facility] [address] [id number] [place] [address]- 3903 May, [facility] [place] [facility] [address] [id number] [place] [address]- 1835 May, [facility] [place] [facility] [address] [id number] [place] [address]- 2347 May, 2013 [facility] [place] [facility] [address] [id number] [place] [address]- 3425 May, 2013 [facility] [place] [facility] [address] [id number] [facility] [address] 6126 May, 2013 [facility] [place] [facility] [address] [id number] [place] [address]- 0112 May, 2013 [facility] [place] [facility] [address] [id number] [place] [address]- 3447 May, 2013 [facility] [place] [facility] [address] [id number] [place] [address]- 8412 May, [facility] [place] [facility] [address] [id number] [place] [address]- 3807 May, [facility] [place] [facility] [address] [id number] [place] [address]- 3403 Apr, [facility] [place] [facility] [address] [id number] [place] [address]- 9212 Apr, [facility] [place] [facility] [address] [id number] [place] [address]- 9949 Apr, [facility] [place] [facility] [address] [id number] [place] [address]- 3854 Apr, [facility] [place] [facility] [address] [id number] [place] [address]- 5868 Apr, [facility] [place] [facility] [address] [id number] [place] [address]- 2002 Apr, [facility] [place] [facility] [address] [id number] [place] [address]- 3304 Apr, [facility] [place] [facility] [address] [id number] [place] [address]- 6366 Apr, [facility] [place] [facility] [address] [id number] [place] [address]- 9332 Apr, [facility] [address] [id number] [place] [address] 4374 March, [facility] [place] [facility] [address] [id number] [place] [address]- 5184 March, [facility] [place] [facility] [address] [id number] [place] [address]- 3837 March, [facility] [place] [facility] [address] [id number] [place] [address]- 6678 March, [facility] [place] [facility] [address] [id number] [place] [address]- 3090 March, [facility] [place] [facility] [address] [id number] [place] [address]- 5647 March, [facility] [place] [facility] [address] [id number] [place] [address]- 4036 March, [facility] [place] [facility] [address] [id number] [place] [address]- 6201 March, [facility] [place] [facility] [address] [id number] [place] [address]- 1292 March, [facility] [place] [facility] [address] [id number] [place] [address]- 5755 March, [facility] [place] [facility] [address] [id number] [place] [address]- 1737 March, [facility] [place] [facility] [address] [id number] [place] [address]- 8651 March, [facility] [place] [facility] [address] [id number] [place] [address]- 0246 March, [facility] [place] [facility] [address] [id number] [place] [address]- 9603 March, [facility] [place] [facility] [address] [id number] [place] [address]- 7694 March, [facility] [place] [facility] [address] [id number] [place] [address]- 1595 March, [facility] [place] [facility] [address] [id number] [place] [address]- 4802 March, [facility] [place] [facility] [address] [id number] [place] [address]- 0714 March, [facility] [place] [facility] [address] [id number] [place] [address]- 1459 March, [facility] [place] [facility] [address] [id number] [place] [address]- 2987 March, [facility] [place] [facility] [address] [id number] [place] [address]- 3264 Feb, [facility] [place] [facility] [address] [id number] [place] [address]- 1575 Feb, [facility] [place] [facility] [address] [id number] [place] [address]- 3650 Feb, [facility] [place] [facility] [address] [id number] [place] [address]- 9482 Feb, [facility] [place] [facility] [address] [id number] [place] [address]- 0458 Feb, [facility] [place] [facility] [address] [id number] [place] [address]- 2948 Feb, [facility] [place] [facility] [address] [id number] [place] [address]- 6487 Feb, [facility] [place] [facility] [address] [id number] [place] [address]- 1626 Feb, [facility] [place] [facility] [address] [id number] [place] [address]- 8817 Jan, [facility] [place] [facility] [address] [id number] [place] [address]- 4583 Jan, [facility] [place] [facility] [address] [id number] [place] [address]- 7983 Jan, [facility] [place] [facility] [address] [id number] [place] [address]- 8680 Jan, [facility] [place] [facility] [address] [id number] [place] [address]- 0523 Jan, [facility] [place] [facility] [address] [id number] [place] [address]- 2671 Jan, [facility] [place] [facility] [address] [id number] [place] [address]- 2585 Jan, [facility] [place] [facility] [address] [id number] [place] [address]- 9010 Jan, [facility] [place] [facility] [address] [id number] [place] [address]- 2457 Jan, [facility] [place] [facility] [address] [id number] [place] [address]- 4158 Jan, [facility] [place] [facility] [address] [id number] [place] [address]- 9491 Dec, [facility] [place] [facility] [address] [id number] [place] [address]- 8843 Dec, [facility] [place] [facility] [address] [id number] [place] [address]- 7105 Dec, [facility] [place] [facility] [address] [id number] [place] [address]- 0736 Dec, [facility] [place] [facility] [address] [id number] [place] [address]- 9533 2013 [facility] [place] [facility] [address] [id number] [place] [address]- 5675 Dec, [facility] [place] [facility] [address] [id number] [place] [address]- 8810 Dec, [facility] [place] [facility] [address] [id number] [place] [address]- 0626 Dec, [facility] [place] [facility] [address] [id number] [place] [address]- 9456 29 Nov, 2013 [facility] [place] [facility] [address] [id number] [place] [address]- 7481 Nov, [facility] [place] [facility] [address] [id number] [place] [address]- 9913 Nov, [facility] [place] [facility] [address] [id number] [place] [address]- 1347 Nov, [facility] [place] [facility] [address] [id number] [place] [address]- 9612 Nov, [facility] [place] [facility] [address] [id number] [place] [address]- 6656 Nov, [facility] [place] [facility] [address] [id number] [place] [address]- 4802 Nov, [facility] [place] [facility] [address] [id number] [place] [address]- 4356 Nov, [facility] [place] [facility] [address] [id number] [place] [address]- 1756 Nov, [facility] [place] [facility] [address] [id number] [place] [address]- 1291 Nov, [facility] [place] [facility] [address] [id number] [place] [address]- 6124 Nov, [facility] [place] [facility] [address] [id number] [place] [address]- 0937 Nov, [facility] [place] [facility] [address] [id number] [place] [address]- 8928 Nov, [facility] [place] [facility] [address] [id number] [place] [address]- 3216 Oct, [facility] [place] [facility] [address] [id number] [place] [address]- 7322 Oct, [facility] [place] [facility] [address] [id number] [place] [address]- 0532 Oct, [facility] [place] [facility] [address] [id number] [place] [address]- 8668 Oct, [facility] [address] [id number] [place] [address]- 0721 Oct, [facility] [address] [id number] [place] [address]- 1466 Oct, [facility] [address] [id number] [place] [address]- 0181 Oct, [facility] [address] [id number] [place] [address]- 3214 Oct, [facility] [address] [id number] [place] [address]- 4878 Oct, [facility] [address] [id number] [place] [address]- 8422 Oct, [facility] [address] [id number] [place] [address]- 4552 Oct, [facility] [address] [id number] [place] [address]- 2290 Oct, [facility] [address] [id number] [place] [address]- 0447 Oct, [facility] [address] [id number] [place] [address]- 6444 Oct, [facility] [address] [id number] [place] [address]- 2777 Sep, [facility] [place] [facility] [address] [id number] [place] [address]- 0080 Sep, [facility] [place] [facility] [address] [id number] [place] [address]- 8323 Sep, [facility] [place] [facility] [address] [id number] [place] [address]- 1500 05 Sep, 2013 [facility] [place] [facility] [address] [id number] [place] [address]- 2916 Sep, [facility] [place] [facility] [address] [id number] [place] [address]- 1279 Sep, [facility] [place] [facility] [address] [id number] [place] [address]33 Sep, [facility] [place] [facility] [address] [id number] [place] [address]- 3608 Sep, [facility] [place] [facility] [address] [id number] [place] [address]- 8564 Sep, [facility] [place] [facility] [address] [id number] [place] [address]- 6450 Sep, [facility] [place] [facility] [address] [id number] [place] [address]- 8546 Aug, [facility] [place] [facility] [address] [id number] [place] [address]- 2761 Aug, [facility] [place] [facility] [address] [id number] [place] [address]- 8883 Aug, [facility] [place] [facility] [address] [id number] [place] [address]- 0362 Aug, [facility] [place] [facility] [address] [id number] [place] [address]- 2884 Aug, [facility] [place] [facility] [address] [id number] [place] [address]- 0688 Aug, [facility] [place] [facility] [address] [id number] [place] [address]- 9584 Aug, [facility] [place] [facility] [address] [id number] [place] [address]- 9867 Aug, [facility] [place] [facility] [address] [id number] [place] [address]- 1705 Aug, [facility] [place] [facility] [address] [id number] [place] [address]- 3321 Aug, [facility] [place] [facility] [address] [id number] [place] [address]- 1621 18 Aug, 2012 [facility] [address] [id number] [place] [address]- 6000 18 Aug, 2013 [facility] [place] [facility] [address] [id number] [place] [address]- 8157 18 Aug, 2013 [facility] [address] [id number] [place] [address]- 6198 18 Aug, 2013 [facility] [place] [facility] [address] [id number] [place] [address]- 3225 17 Aug, 2013 [facility] [address] [id number] [place] [address]- 8618 14 Aug, 2013 [facility] [place] [facility] [address] [id number] [place] [address]- 5303 14 Aug, 2013 [facility] [place] [facility] [address] [id number] [place] [address]- 5004 01 Aug, 2013 [facility] [address] [id number] [place] [address]- 4332 20 Jul, 2013 [facility] [place] [facility] [address] [id number] [place] [address]- 0532 19 Jul, 2013 [facility] [address] [id number] [place] [address]- 0664 18 Jul, 2013 [facility] [place] [facility] [address] [id number] [place] [address]- 2307 11 Jul, 2013 [facility] [place] [facility] [address] [id number] [place] [address]- 5380 11 Jul, 2013 [facility] [place] [facility] [address] [id number] [place] [address]- 7138 Jun, [facility] [place] [facility] [address] [id number] [place] [address]- 1912 Jun, [facility] [place] [facility] [address] [id number] [place] [address]- 4840 Jun, [facility] [place] [facility] [address] [id number] [place] [address]- 3086 Jun, [facility] [place] [facility] [address] [id number] [place] [address]- 4348 Jun, [facility] [place] [facility] [address] [id number] [place] [address]- 2123 Jun, [facility] [place] [facility] [address] [id number] [place] [address]- 2827 Jun, [facility] [place] [facility] [address] [id number] [place] [address]- 4021 Jun, [facility] [place] [facility] [address] [id number] [place] [address]- 5996 Jun, [facility] [place] [facility] [address] [id number] [place] [address]- 1379 Jun, [facility] [place] [facility] [address] [id number] [place] [address]- 9413 May, [facility] [place] [facility] [address] [id number] [place] [address]- 8908 May, [facility] [place] [facility] [address] [id number] [place] [address]- 8280 May, [facility] [place] [facility] [address] [id number] [place] [address]- 4241 May, [facility] [place] [facility] [address] [id number] [place] [address]- 0376 May, [facility] [place] [facility] [address] [id number] [place] [address]- 7767 May, [facility] [place] [facility] [address] [id number] [place] [address]- 6851 May, [facility] [place] [facility] [address] [id number] [place] [address]- 6568 May, [facility] [place] [facility] [address] [id number] [place] [address]- 9152 May, [facility] [address] [id number] [place] [address]- 5846 Apr, [facility] [place] [facility] [address] [id number] [place] [address]- 2796 Apr, [facility] [address] [id number] [place] [address]- 1828 Apr, [facility] [address] [id number] [place] [address]- 4825 Apr, [facility] [address] [id number] [place] [address]- 2054 Apr, [facility] [address] [id number] [place] [address]- 1962 Apr, [facility] [address] [facility] [id number] [place] [address]- 7998 Apr, [facility] [address] [id number] [place] [address]- 1365 March, [facility] [address] [id number] [place] [address]- 1047 Feb, [facility] [address] [id number] [place] [address]- 2904 Feb, [facility] [address] [id number] [place] [address]- 7206 Feb, [facility] [place] [facility] [address] [id number] [place] [address]- 9956 28 Jan, 2013 [facility] [place] [facility] [address] [id number] [place] [address]- 5522 21 Jan, 2013 [facility] [place] [facility] [address] [id number] [place] [address]- 8415 19 Jan, 2013 [facility] [place] [facility] [address] [id number] [place] [address]- 9129 14 Jan, 2013 [facility] [place] [facility] [address] [id number] [place] [address]- 7116 12 Jan, 2013 [facility] [place] [facility] [address] [id number] [place] [address]- 4946 08 Jan, 2013 [facility] [place] [facility] [address] [id number] [place] [address]- 8744 07 Jan, 2013 [facility] [place] [facility] [address] [id number] [place] [address]- 6977 04 Jan, 2013 [facility] [place] [facility] [address] [id number] [place] [address]- 7303 28 Dec, 2012 [facility] [place] [facility] [address] [id number] [place] [address]- 5246 25 Dec, 2012 [facility] [place] [facility] [address] [id number] [place] [address]- 1290 13 Dec, 2012 [facility] [place] [facility] [address] [id number] [place] [address]- 0300 Dec, [facility] [place] [facility] [address] [id number] [place] [address]- 4738 07 Dec, 2012 [facility] [place] [facility] [address] [facility] [id number] [place] [address]- 0164 06 Dec, 2012 [facility] [place] [facility] [address] [facility] [id number] [place] [address]- 9021 05 Dec, 2012 [facility] [place] [facility] [address] [id number] [place] [address]- 1351 Nov, [facility] [place] [facility] [address] [id number] [place] [address]- 3238 24 Nov, 2012 [facility] [place] [facility] [address] [id number] [place] [address]- 5854 18 Nov, 2012 [facility] [place] [facility] [address] [id number] [place] [address]- 3124 15 Nov, 2012 [facility] [place] [facility] [address] [id number] [place] [address]- 6322 Nov, [facility] [address] [id number] [place] [address]- 3944 Nov, [facility] [place] [facility] [address] [id number] [place] [address]- 3439 Nov, [facility] [address] [facility] [id number] [place] [address]- 8356 Oct, [facility] [place] [facility] [address] [id number] [place] [address]- 5111 Oct, [facility] [address] [id number] [place] [address]- 6259 Oct, [facility] [place] [facility] [address] [id number] [place] [address]- 8460 Oct, [facility] [address] [id number] [place] [address]- 9548 Oct, [facility] [place] [facility] [address] [id number] [place] [address]- 1521 Oct, [facility] [address] [facility] [id number] [place] [address] Oct, [facility] [place] [facility] [address] [facility] [id number] [place] [address] Oct, [facility] [place] [facility] [address] [facility] [id number] [place] [address] Oct, [facility] [place] [facility] [address] [id number] [place] [address] Oct, [facility] [place] [facility] [address] [id number] [place] [address] Oct, [facility] [place] [facility] [address] [id number] [place] [address] Oct, [facility] [place] [facility] [address] [facility] [id number] [place] [address] Sep, [facility] [place] [facility] [address] [id number] [place] [address] Sep, [facility] [place] [facility] [address] [id number] [place] [address] Sep, [facility] [place] [facility] [address] [id number] [place] [address] Sep, [facility] [place] [facility] [address] [id number] [place] [address] Sep, [facility] [place] [facility] [address] [id number] [place] [address] Sep, [facility] [place] [facility] [address] [id number] [place] [address] Sep, [facility] [place] [facility] [address] [id number] [place] [address] Sep, [facility] [place] [facility] [address] [id number] [place] [address]- [address] Sep, [facility] [place] [facility] [address] [id number] [place] [address] Sep, [facility] [place] [facility] [address] [id number] [place] [address] Sep, [facility] [place] [facility] [address] [facility] [id number] [place] [address]- [address] Aug, [facility] [place] [facility] [address] [id number] [place] [address]207 Aug, [facility] [place] [facility] [address] [id number] [place] [address] 8057 Aug, [facility] [place] [facility] [address] [id number] [place] [address]- [address]14 Aug, [facility] [place] [facility] [address] [id number] [place] [address] Aug, [facility] [place] [facility] [address] [id number] [place] [address]169 Aug, [facility] [place] [facility] [address] [id number] [place] [address] Aug, [facility] [place] [facility] [address] [id number] [place] [address]- 8414 Aug, [facility] [place] [facility] [address] [id number] [place] [address] 4436 Aug, [facility] [place] [facility] [address] [id number] [place] [address] Aug, [facility] [place] [facility] [address] [id number] [place] [address] Jul, [facility] [place] [facility] [address] [id number] [place] [address]3 Jul, [facility] [place] [facility] [address] [id number] [place] [address] 2936 Jul, [facility] [place] [facility] [address] [id number] [place] [address] Jul, [facility] [place] [facility] [address] [id number] [place] [address] Jun, [facility] [place] [facility] [address] [id number] [place] [address]- [address]676 Jun, [facility] [place] [facility] [address] [id number] [place] [address]- 4289 Jun, [facility] [place] [facility] [address] [id number] [place] [address] Jun, [facility] [place] [facility] [address] [id number] [place] [address] Jun, [facility] [place] [facility] [address] [id number] [place] [address] Jun, [facility] [place] [facility] [address] [id number] [place] [address] 7688 Jun, [facility] [place] [facility] [address] [id number] [place] [address]- [address] 24 May, 2012 [facility] [place] [facility] [address] [id number] [place] [address]- [address] May, [facility] [place] [facility] [address] [id number] [place] [address]- 69[address] May, [facility] [place] [facility] [address] [id number] [place] [address]- 59[address] May, [facility] [place] [facility] [address] [id number] [place] [address]- [address] May, [facility] [place] [facility] [address] [id number] [place] [address]- [address] Apr, [facility] [place] [facility] [address] [id number] [place] [address]- [address]697 Apr, [facility] [place] [facility] [address] [id number] [place] [address]- [address] Apr, [facility] [place] [facility] [address] [id number] [place] [address]- [address] Apr, [facility] [place] [facility] [address] [id number] [place] [address]- 8435 Apr, [facility] [place] [facility] [address] [id number] [place] [address]- [address] March, [facility] [place] [facility] [address] [id number] [place] [address] March, [facility] [place] [facility] [address] [id number] [place] [address] March, [facility] [place] [facility] [address] [id number] [place] [address]- [address] March, [facility] [place] [facility] [address] [id number] [place] [address]- [address]151 March, [facility] [place] [facility] [address] [id number] [place] [address]- [address]103 March, [facility] [place] [facility] [address] [id number] [place] [address]- [address] March, [facility] [address] [id number] [place] [address]- 9599 March, [facility] [place] [facility] [address] [id number] [place] [address]- [address] March, [facility] [address] [id number] [place] [address]- 265[address] March, [facility] [address] [id number] [place] [address] 265[address] Feb, [facility] [place] [facility] [address] [id number] [place] [address]- [address] Feb, [facility] [address] [id number] [place] [address]- [address]305 Feb, [facility] [address] [id number] [place] [address] 1885 Feb, [facility] [address] [id number] [place] [address]- [address]603 Feb, [facility] [place] [facility] [address] [id number] [place] [address]- 9686 Feb, [facility] [place] [facility] [address] [id number] [place] [address]- 0023 Feb, [facility] [place] [facility] [address] [id number] [place] [address]- 2619 Feb, [facility] [facility] [address] [id number] [place] [address] Feb, [facility] [place] [facility] [address] [id number] [place] [address] Jan, [facility] [place] [facility] [address] [id number] [place] [address] Jan, [facility] [place] [facility] [address] [id number] [place] [address] Jan, [facility] [address] [id number] [place] [address] Jan, [facility] [address] [id number] [place] [address] Dec, [facility] [address] [id number] [place] [address] Dec, [facility] [address] [id number] [place] [address] Nov, [facility] [address] [id number] [place] [address] Nov, [facility] [address] [id number] [place] [address] Nov, [facility] [address] [id number] [place] [address] Nov, [facility] [address] [id number] [place] [address] Nov, [facility] [address] [id number] [place] [address] Oct, [facility] [address] [id number] [place] [address] Oct, [facility] [address] [id number] [place] [address] Oct, [facility] [address] [id number] [place] [address] Oct, [facility] [facility] [address] [id number] [place] [address] Oct, [facility] [facility] [address] [id number] [place] [address] Oct, [facility] [address] [id number] [place] [address] Oct, [facility] [facility] [address] [facility] [id number] [place] [id number] Oct, [facility] [address] [facility] [id number] [place] [address] Sep, IMMUNIZATIONS No Known Immunizations SOCIAL HISTORY [...]
--- OUTSIDE RECORDS SUMMARY | 2018-09-04 11:34 | XMS REPORT ---
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 Name Role Phone SHAHNAZ MARQUEZ Unavailable PROBLEMS Type Condition ICD9-CM Code [id number] Code Onset Dates Condition Status SNOMED Code Problem Type 2 diabetes mellitus without complication, without long-term current use of insulin E11.9 Active 787064063 Problem Reactive depression F32.9 Active 95276959 Problem Ventral hernia without obstruction or gangrene K43.9 Active 575897137 Problem 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 Active 00971415 Problem Paroxysmal atrial fibrillation I48.0 Active 734737616 Problem Anxiety F41.9 Active 71052651 Problem Pharyngeal dysphagia R13.13 Active 43280502754278 Problem Insomnia G47.00 Active 605049188 Problem Peripheral vascular disease I73.9 Active 157082977 Problem Coronary artery disease I25.10 Active 32665021 Problem Hyperlipidemia E78.5 Active 15971458 Problem Other chronic pain G89.29 Active 02516431 Problem Hypertension I10 Active 07257733 Problem Low back pain M54.5 Active 606080439 ALLERGIES No Information ENCOUNTERS Encounter Location Date Diagnosis [facility] [address] [facility] [place] [id number] Jun, 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 [facility] [address] [id number] [address] Jun, Other chronic pain G89.29 [facility] [address] [id number], [place] [address] Jun, [facility] [address] [place] [id number] May, Anxiety F41.9 ; Type 2 diabetes mellitus without complication, without long-term current use of insulin E11.9 ; Hypertension I10 ; Low back pain M54.5 ; Paroxysmal atrial fibrillation I48.0 and 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 [facility] [address] [id number], [place] [address] May, Other chronic pain G89.29 [facility] [employer] [facility] [address] [place] [id number] May, Low back pain M54.5 [facility] [id number] [place] [address] 82753- 5986 May, [facility] [address] [id number] [place] [address] 14571- 7768 Apr, Other chronic pain G89.29 [facility] [address] [id number] [place] [address] 39511- 8087 Apr, [facility] [address] [facility] [id number] [place] [address] 85007- 6151 Apr, [facility] [employer] [address] [place] [id number] Apr, Closed compression fracture of L3 lumbar vertebra with routine healing, subsequent encounter S32.030D [facility] [address] [place] [id number] Apr, Low back pain M54.5 [facility] [address] [place] [id number] Apr, Coccydynia M53.3 [facility] [address] [facility] [id number], [place] [address] March, [facility] [address] [id number], [place] [address] 4[address] March, Other chronic pain G89.29 [facility] [address] [id number], [place] [address] 3366 March, [facility] [address] [facility] [id number], [place] [address] 8130 March, [facility] [address] [facility] [id number], [place] [address] 7835 Feb, [facility] [address] [id number], [place] [address] 2004 Feb, Other chronic pain G89.29 [facility] [address] [place] [id number] Feb, Other chronic pain G89.29 and Anxiety F41.9 [facility] [address], [place] [address] 8286 Feb, [facility] [address], [place] [address] 9146 Jan, [facility] [id number] [place] [address] 32164- 9128 Jan, [facility] [id number] [place] [address] 49855- 4523 Jan, [facility] [id number] [place] [address] 29608- 1760 Jan, [facility] [address], [place] [address] Dec, [facility] [address] [place] [id number] Dec, Peripheral vascular disease I73.9 ; 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 ; Other chronic pain G89.29 ; Anxiety F41.9 ; Reactive depression F32.9 ; Insomnia G47.00 and Type 2 diabetes mellitus without complication, without long-term current use of insulin E11.9 [facility] [address] [id number] [place] [address] Nov [facility] [address] [id number] [id number] Nov, Anxiety F41.9 [facility] [address] [id number], [place] [address] Nov, [facility] [id number] [id number] Nov, Anxiety F41.9 [facility] [address] [place] [id number] Nov, Status post surgery Z98.890 ; Confused R41.0 ; Anxiety F41.9 and Other chronic pain G89.29 [facility] [id number] [id number] Nov, Other chronic pain G89.29 [facility] [address]00565[address], [place] [address] Oct, [facility] [id number] [place] [address] [id number] Oct, Other chronic pain G89.29 [facility] [id number] [place] [address] 46686- 9746 Oct, Anxiety F41.9 [facility] [id number] [place] [address] [id number] Sep, Other chronic pain G89.29 [facility] [id number] [place] [address] [id number] Sep, [facility] [facility] [facility] [address] [place] [id number] Aug, Dysuria R30.0 and Anxiety F41.9 [facility] [address], [place] [address] Aug, [facility] [id number] [id number] Aug, Other chronic pain G89.29 [facility] [id number] [place] [address] 86373- 1986 Jul, Other chronic pain G89.29 [facility] [id number] [id number] Jun, [facility] [id number] [place] [address] [id number] Jun, Other chronic pain G89.29 [facility] [address], [place] [address] Jun, [facility] [address]65100[place], [place] [address] 9164 May, Other chronic pain G89.29 [facility] [id number] [place] [address] 69228- 0273 Apr, Other chronic pain G89.29 Via [facility] [address] [place] [id number] Apr, Reactive depression F32.9 and Pharyngeal dysphagia R13.13 [facility] [id number] [place] [address] 03115- 1309 Apr, Urinary tract infection without hematuria, site unspecified N39.0 [facility] [id number] [place] [address] 34412- 9730 March, Other chronic pain G89.29 [facility] [id number] [place] [address] 12965- 0989 Feb, Other chronic pain G89.29 [facility] [id number] [place] [address] 50275- 8371 Feb, [facility] [id number] [place] [address] [id number] Feb, Via [facility] [address] [place] [id number] Feb, Dysuria R30.0 and Ventral hernia without obstruction or gangrene K43.9 [facility] [address] [place] [address] 11126- 0066 Jan, Other chronic pain G89.29 [facility] [id number] [place] [address] [id number] Dec, Other chronic pain G89.29 [facility] [id number] [place] [address] [id number]- 5130 Nov, Other chronic pain G89.29 [facility] [address] [place] [id number] Nov, Lymphadenitis I88.9 [facility] [address] [facility] [id number] [place] [address] 05907- 3400 Nov, Other chronic pain G89.29 [facility] [id number] [place] [address] 82555- 4483 Nov, [facility] [id number] [place] [address] [id number] Nov, Other chronic pain G89.29 Via [facility] [address] [place] [id number] Oct, Low back pain M54.5 ; Hypertension I10 and Type 2 diabetes mellitus without complication, without long-term current use of insulin E11.9 [facility] [id number] [place] [address] 34643- 6064 Oct, [facility] [id number] [place] [address] 21889- 8321 Oct, [facility] [id number] [place] [address] 08604- 0669 Oct, [facility] [id number] [place] [address] 53648- 0668 Oct, [facility] [id number] [place] [address] 64436- 8560 Sep, [facility] [id number] [place] [address] 80731- 7113 Sep, [facility] [id number] [place] [address] 71014- 8736 Aug, Other chronic pain G89.29 [facility] [id number] [place] [address] 79706- 9131 Jul, [facility] [id number] [place] [address] 41146- 1292 Jul, [facility] [id number] [place] [address] 779202- 2133 Jul, [facility] [id number] [place] [address] 16583- 0660 Jun, [facility] [address], [place] [address]- 5422 Jun, Via [facility] [address] [place] [id number] Jun, Low back pain M54.5 ; Other chronic pain G89.29 and Coronary artery disease I25.10 [facility] [id number] [place] [address] 91385- 7718 Jun, [facility] [id number] [place] [address] 76833- 7998 May, [facility] [id number] [place] [address] 77402- 8732 May, [facility] [id number] [place] [address] 46555- 7661 May, Other chronic pain G89.29 [facility] [id number] [place] [address] 58196- 2549 May, [facility] [id number] [place] [address] 99674- 5001 Apr, [facility] [address] [place] [address] 27930- 7267 Apr, Acute cystitis without hematuria N30.00 [facility] [address] [place] [address] 61579- 9724 Apr, Acute cystitis without hematuria N30.00 ; Coronary artery disease I25.10 ; Low back pain M54.5 and Other chronic pain G89.29 [facility] [address], [place] [address]- 7341 Apr, Other chronic pain G89.29 [facility] [address], [place] [address]- 5070 March, Other chronic pain G89.29 [facility] [id number] [place] [address] 78636- 0124 18 Feb, 2016 [facility] [address], [place] [address]- 8527 15 Feb, 2016 Arthritis M19.90 [facility] [id number] [place] [address] 69395- 8273 13 Feb, 2016 [facility] [id number] [place] [address] 07702- 2212 30 Jan, 2016 [facility] [id number] [place] [address] 24061- 6919 Jan, [facility] [id number] [place] [address] 50172- 0956 Jan, Other chronic pain G89.29 [facility] [id number] [place] [address] 66813- 7913 Jan, Hypertension I10 ; Coronary artery disease I25.10 and Insomnia G47.00 [facility] [id number] [place] [address] 33705- 6689 Jan, [facility] [id number] [place] [address] 61500- 2702 Dec, Right hip pain M25.551 [facility] [id number] [place] [address] 35220- 5447 Dec, [facility] [id number] [place] [address] 28517- 2881 Dec, [facility] [address] [place] [address] 55241- 2543 Dec, [facility] [id number] [place] [address] 34817- 6660 Dec, Other chronic pain G89.29 [facility] [address] [place] [address] 95061- 5622 Dec, [facility] [id number] [place] [address] 99301- 1602 Nov, [facility] [address] [place] [address] 99254- 8363 Nov, Other chronic pain G89.29 [facility] [id number] [place] [address] 77697- 4244 Nov, Right hip pain M25.551 and Coronary artery disease I25.10 [facility] [address] 10087- 9515 Nov, Other chronic pain G89.29 [facility] [id number] [place] [address] 91620- 8383 Oct, [facility] [address] 01842- 8227 Oct, [facility] [id number] [place] [address] 65885- 5692 Sep, [facility] [id number] [place] [address] 66890- 8192 Sep, [facility] [id number] [place] [address] 53678- 7949 Aug, [facility] [id number] [place] [address] 89239- 9300 Aug, Hypertension I10 ; Coronary artery disease I25.10 and Arthritis M19.90 [facility] [id number] [place] [address] 51872- 0383 Jun, [facility] [id number] [place] [address] 54690- 7627 Jun, Essential hypertension, benign 401.1 ; Other chronic pain 338.29 and Chronic airway obstruction, not elsewhere classified 496 [facility] [id number] [place] [address] 87652- 7263 Jun, [facility] [id number] [place] [address] 37745- 9653 Jun, [facility] [address] [id number] [place] [address]- 9364 Jun, [facility] [address] [id number] [place] [address]- 1227 May, [facility] [address] [id number] [place] [address]- 3696 May, [facility] [address] [id number] [place] [address]- 9730 Apr, [facility] [address] [id number] [place] [address]- 2427 Apr, [facility] [address] [id number] [place] [address]- 7646 Apr, [facility] [address] [id number] [place] [address]- 8054 March, [facility] [address] [id number] [place] [address]- 7446 March, [facility] [address] [id number] [place] [address]- 0446 March, [facility] [address] [id number] [place] [address]- 7656 March, [facility] [address] [facility] [id number] [place] [address]- 7713 March, Sialadenitis 527.2 [facility] [address] [id number] [place] [address]- 4688 Feb, [facility] [place] [facility] [address] [id number] [place] [address]- 4299 Feb, [facility] [address] [id number] [place] [address]- 6638 Feb, [facility] [address] [id number] [place] 6966 Feb, [facility] [address] [id number], [place] [address]- 0028 Feb, [facility] [place] [facility] [address] [id number] [place] [address]- 9841 Jan, [facility] [place] [facility] [address] [id number] [place] [address]- 1771 Jan, [facility] [place] [facility] [address] [facility] [id number] [place] [address]- 1143 Jan, [facility] [place] [facility] [address] [id number] [place] [address]- 9597 Jan, [facility] [place] [facility] [address] [id number] [place] [address]- 2373 Jan, [facility] [place] [facility] [address] [facility] [id number] [place] [address]- 4303 Jan, [facility] [place] [facility] [address] [id number] [place] [address]- 9994 Dec, [facility] [place] [facility] [address] [facility] [id number] [place] [address]- 1503 Dec, 2014 [facility] [place] [facility] [address] [facility] [id number] [place] [address]- 1271 Dec, 2014 [facility] [place] [facility] [address] [facility] [id number] [place] [address]- 0127 Dec, [facility] [place] [facility] [address] [facility] [id number] [place] [address]- 4069 Dec, 2014 [facility] [place] [facility] [address] [facility] [id number], [place] [address]- 7524 Dec, 2014 [facility] [place] [facility] [address] [id number], [place] [address]- 4791 Nov, [facility] [place] [facility] [address] [facility] [id number], [place] [address]- 6228 Nov, [facility] [place] [facility] [address] [facility] [id number], [place] [address]- 8481 Nov, [facility] [place] [facility] [address] [id number] [place] [address]- 1442 Nov, [facility] [address] [id number] [place] [address]- 9674 Nov, [facility] [place] [facility] [address] [id number] [place] [address]- 7687 Nov, [facility] [address] [id number] [place] [address]- 3786 Nov, [facility] [address] [id number] [place] [address]- 4120 Nov, [facility] [address] [id number] [place] [address]- 8651 Nov, [facility] [address] [id number] [place] [address]- 9694 Nov, [facility] [address] [id number] [place] [address]- 4226 Nov, [facility] [address] [id number] [place] [address]- 7654 Nov, [facility] [address] [id number] [place] [address]- 4784 Nov, [facility] [place] [facility] [address] [id number] [place] [address] Nov, [facility] [place] [facility] [address] [id number] [place] [address] Oct, [facility] [place] [facility] [address] [id number] [place] [address] Oct, [facility] [place] [facility] [address] [id number] [place] [address] Oct, [facility] [place] [facility] [address] [id number] [place] [address] Oct, [facility] [place] [facility] [address] [id number] [place] [address] 18 Oct, 2014 [facility] [place] [facility] [address] [id number] [place] [address] Oct, [facility] [place] [facility] [address] [id number] [place] [address] Oct, [facility] [place] [facility] [address] [id number] [place] [address] Oct, [facility] [place] [facility] [address] [id number] [place] [address] Oct, [facility] [place] [facility] [address] [id number] [place] [address] Sep, [facility] [place] [facility] [address] [id number] [place] [address] Sep, [facility] [place] [facility] [address] [id number] [place] [address] Sep, [facility] [place] [facility] [address] [id number] [place] [address] Sep, [facility] [place] [facility] [address] [id number] [place] [address] Sep, [facility] [place] [facility] [address] [id number] [place] [address] Sep, [facility] [place] [facility] [address] [id number] [place] [address] Sep, [facility] [place] [facility] [address] [id number] [place] [address] Sep, [facility] [place] [facility] [address] [id number] [place] [address] Sep, [facility] [place] [facility] [address] [id number] [place] [address] Sep, [facility] [place] [facility] [address] [id number] [place] [address]- [address] Sep, [facility] [place] [facility] [address] [id number] [place] [address] Sep, [facility] [place] [facility] [address] [id number] [place] [address] 30 Aug, 2014 [facility] [place] [facility] [address] [id number] [place] [address]- [address] 30 Aug, 2014 [facility] [place] [facility] [address] [id number] [place] [address]- [address] 29 Aug, 2014 [facility] [place] [facility] [address] [id number] [place] [address] 29 Aug, 2014 [facility] [place] [facility] [address] [id number] [place] [address] Aug, [facility] [place] [facility] [address] [id number] [place] [address] Aug, [facility] [place] [facility] [address] [id number] [place] [address] Aug, [facility] [place] [facility] [address] [id number] [place] [address] 17 Aug, 2014 [facility] [place] [facility] [address] [id number] [place] [address]- [address] 30 Jul, 2013 [facility] [place] [facility] [address] [id number] [place] [address] 30 Sep, 2013 [facility] [place] [facility] [address] [id number] [place] [address] 30 Sep, 2013 [facility] [place] [facility] [address] [id number] [place] [address] 30 Sep, 2013 [facility] [place] [facility] [address] [id number] [place] [address]- [address] 25 Sep, 2013 [facility] [place] [facility] [address] [id number] [place] [address] 25 Sep, 2013 [facility] [facility] [address] [id number] [place] [address] Jul, [facility] [place] [facility] [address] [id number] [place] [address] Jul, [facility] [place] [facility] [address] [id number] [place] [address] 15[address] Jul, [facility] [place] [facility] [address] [id number] [place] [address] Jul, [facility] [place] [facility] [address] [id number] [place] [address]- 2499 Jun, [facility] [place] [facility] [address] [id number] [place] [address]- 9935 Jun, [facility] [place] [facility] [address] [id number] [place] [address]- 5582 Jun, [facility] [place] [facility] [address] [id number] [place] [address]- 8110 Jun, [facility] [place] [address] [id number] [place] [address]- 5530 Jun, [facility] [place] [facility] [address] [id number] [place] [address]- 8665 Jun, [facility] [place] [facility] [address] [id number] [place] [address]- 7708 Jun, [facility] [place] [facility] [address] [id number] [place] [address]- 8912 Jun, [facility] [place] [facility] [address] [id number] [place] [address]- 1181 Jun, [facility] [place] [facility] [address] [id number] [place] [address]- 0013 Jun, [facility] [address] [id number] [place] [address]- 0446 Jun, [facility] [place] [address] [id number] [place] [address]- 1139 Jun, [facility] [place] [facility] [address] [id number] [place] [address]- 9525 Jun, [facility] [address] [id number] [place] [address]- 9413 Jun, [facility] [facility] [address] [id number] [place] [address]- 4745 Jun, [facility] [place] [facility] [address] [id number] [place] [address]- 4032 Jun, [facility] [address] [id number] [place] [address]- 5842 Jun, [facility] [address] [id number] [place] [address]- 3965 Jun, [facility] [facility] [address] [id number] [place] [address]- 6932 Jun, [facility] [address] [id number] [place] [address]- 5939 Jun, [facility] [address] [id number] [place] [address]- 2511 Jun, [facility] [place] [facility] [address] [id number] [place] [address]- 6594 Jun, [facility] [address] [id number] [place] [address]- 0534 May, [facility] [address] [id number] [place] [address]- 7585 May, [facility] [address] [id number] [place] [address]- 5339 May, [facility] [address] [id number] [place] [address]- 1734 May, [facility] [address] [id number] [place] [address]- 1040 May, [facility] [address] [id number] [place] [address]- 8479 May, [facility] [address] [id number] [place] [address]- 18[address] May, 2013 [facility] [address] [id number] [place] [address]- 7084 May, 2013 [facility] [address] [id number] [facility] [place] [address] May, 2013 [facility] [address] [id number] [place] [address]- 1208 May, 2013 [facility] [address] [id number] [place] [address]- 0818 May, 2013 [facility] [address] [id number] [place] [address]- 0535 May, [facility] [address] [id number] [place] [address]- 3412 May, [facility] [address] [id number] [place] [address]- 0988 Apr, [facility] [address] [id number] [place] [address]- 8573 Apr, [facility] [address] [id number] [place] [address]- 8490 Apr, [facility] [address] [id number] [place] [address]- 8260 Apr, [facility] [address] [id number] [place] [address]- 6717 Apr, [facility] [address] [id number] [place] [address]- 4259 Apr, [facility] [address] [id number] [place] [address]- 7597 Apr, [facility] [address] [id number] [place] [address]- 1571 Apr, [facility] [address] [id number] [place] [address]- 50[address] Apr, [facility] [address] [id number] [place] [address]- 4898 March, [facility] [address] [id number] [place] [address]- 7309 March, [facility] [address] [id number] [place] [address]- 5220 March, [facility] [address] [id number] [place] [address]- 8746 March, [facility] [address] [id number] [place] [address]- 1320 March, [facility] [address] [id number] [place] [address]- 1824 March, [facility] [address] [id number] [place] [address]- 0756 March, [facility] [address] [id number] [place] [address]- 4064 March, [facility] [address] [id number] [place] [address]- 0295 March, [facility] [address] [id number] [place] [address]- 3227 March, [facility] [address] [id number] [place] [address]- 2325 March, [facility] [address] [id number] [place] [address]- 4492 March, [facility] [address] [id number] [place] [address]- 6095 March, [facility] [address] [id number] [place] [address]- 8638 March, [facility] [address] [id number] [place] [address]- 0645 March, [facility] [address] [id number] [place] [address]- 9142 March, [facility] [address] [id number] [place] [address]- 7965 March, [facility] [address] [id number] [place] [address]- 0053 March, [facility] [address] [id number] [place] [address]- 4237 March, [facility] [address] [id number] [place] [address]- 5929 March, [facility] [address] [id number] [place] [address]- 0076 Feb, [facility] [address] [id number] [place] [address]- 7566 Feb, [facility] [address] [id number] [place] [address]- 0189 Feb, [facility] [address] [id number] [place] [address]- 0581 Feb, [facility] [address] [id number] [place] [address]- 8909 Feb, [facility] [address] [id number] [place] [address]- 4454 Feb, [facility] [address] [id number] [place] [address]- 5298 Feb, [facility] [address] [id number] [place] [address]- 2456 Feb, [facility] [address] [id number] [place] [address]- 9863 Jan, [facility] [address] [id number] [place] [address]- 6856 Jan, [facility] [address] [id number] [place] [address]- 2750 Jan, [facility] [address] [id number] [place] [address]- 9954 Jan, [facility] [address] [id number] [place] [address]- 5709 Jan, [facility] [address] [id number] [place] [address]- 3974 Jan, [facility] [address] [id number] [place] [address]- 9087 Jan, [facility] [address] [id number] [place] [address]- 4169 Jan, [facility] [address] [id number] [place] [address]- 0763 Jan, [facility] [address] [id number] [place] [address]- 3394 Jan, [facility] [address] [id number] [place] [address]- 2473 Dec, [facility] [address] [id number] [place] [address]- 3193 Dec, [facility] [address] [id number] [place] [address]- 1746 Dec, [facility] [address] [id number] [place] [address]- 7957 Dec, [facility] [address] [id number] [place] [address]- 9679 2013 [facility] [address] [id number] [place] [address]- 6323 Dec, [facility] [address] [id number] [place] [address]- 2372 Dec, [facility] [address] [id number] [place] [address]- 7675 Dec, [facility] [address] [id number] [place] [address]- 7293 29 Nov, 2013 [facility] [address] [id number] [place] [address]- 4887 Nov, [facility] [address] [id number] [place] [address]- 4932 Nov, [facility] [address] [id number] [place] [address]- 5009 Nov, [facility] [address] [id number] [place] [address]- 8224 Nov, [facility] [address] [id number] [place] [address]- 3449 Nov, [facility] [address] [id number] [place] [address]- 3403 Nov, [facility] [address] [id number] [place] [address]- 6306 Nov, [facility] [address] [id number] [place] [address]- 8208 Nov, [facility] [address] [id number] [place] [address]- 2211 Nov, [facility] [address] [id number] [place] [address]- 3682 Nov, [facility] [address] [id number] [place] [address]- 9559 Nov, [facility] [address] [id number] [place] [address]- 7609 Nov, [facility] [address] [id number] [place] [address]- 2630 Oct, [facility] [address] [id number] [place] [address]- 9547 Oct, [facility] [address] [id number] [place] [address]- 8266 Oct, [facility] [address] [id number] [place] [address]- 1759 Oct, [facility] [address] [id number] [place] [address]- 7374 Oct, [facility] [address] [id number] [place] [address]- 8776 Oct, [facility] [address] [id number] [place] [address]- 9448 Oct, [facility] [address] [id number] [place] [address]- 8618 Oct, [facility] [address] [id number] [place] [address]- 8962 Oct, [facility] [address] [id number] [place] [address]- 7423 Oct, [facility] [address] [id number] [place] [address]- 5747 Oct, [facility] [address] [id number] [place] [address]- 8278 Oct, [facility] [address] [id number] [place] [address]- 9384 Oct, [facility] [address] [id number] [place] [address]- 8992 Oct, [facility] [address] [id number] [place] [address]- 1532 Sep, [facility] [address] [id number] [place] [address]- 8180 Sep, [facility] [address] [id number] [place] [address]- 9665 Sep, [facility] [address] [id number] [place] [address]- 9880 05 Sep, 2013 [facility] [address] [id number] [place] [address]- 3190 Sep, [facility] [address] [id number] [place] [address]- 9920 Sep, [facility] [address] [id number] [place] [address] Sep, [facility] [address] [id number] [place] [address]- 8478 Sep, [facility] [address] [id number], [place] [address]- 8099 Sep, [facility] [address] [id number] [place] [address]- 7201 Sep, [facility] [address] [id number] [place] [address]- 9706 Aug, [facility] [address] [id number], [place] [address]- 5387 Aug, [facility] [address] [id number], [place] [address]- 2963 Aug, [facility] [address] [id number], [place] [address]- 7693 Aug, [facility] [address] [id number], [place] [address]- 7390 Aug, [facility] [address] [id number], [place] [address]- 4806 Aug, [facility] [address] [id number], [place] [address]- 4666 Aug, [facility] [address] [id number], [place] [address]- 7381 Aug, [facility] [address] [id number], [place] [address]- 2005 Aug, [facility] [address] [id number], [place] [address]- 1501 Aug, [facility] [address] [id number] [place] [address]- 1576 18 Aug, 2012 [facility] [address] [id number] [place] [address]- 8519 18 Aug, 2013 [facility] [facility] [address] [id number] [place] [address]- 7194 18 Aug, 2013 [facility] [address] [id number] [place] [address]- 8599 18 Aug, 2013 [facility] [address] [id number] [place] [address]- 8834 17 Aug, 2013 [facility] [address] [id number] [place] [address]- 5492 14 Aug, 2013 [facility] [place] [facility] [address] [id number] [place] [address]- 8997 14 Aug, 2013 [facility] [place] [facility] [address] [id number] [place] [address]- 0206 01 Aug, 2013 [facility] [address] [id number] [place] [address]- 1984 20 Jul, 2013 [facility] [place] [facility] [address] [id number] [place] [address]- 2113 19 Jul, 2013 [facility] [address] [id number] [place] [address]- 6174 18 Jul, 2013 [facility] [place] [facility] [address] [id number] [place] [address]- 0330 11 Jul, 2013 [facility] [place] [facility] [address] [id number] [place] [address]- 9955 11 Jul, 2013 [facility] [place] [facility] [address] [id number] [place] [address]- 0233 Jun, [facility] [place] [facility] [address] [id number] [place] [address]- 0760 Jun, [facility] [place] [facility] [address] [id number] [place] [address]- 2328 Jun, [facility] [place] [facility] [address] [id number] [place] [address]- 7640 Jun, [facility] [place] [facility] [address] [id number] [place] [address]- 0638 Jun, [facility] [place] [facility] [address] [id number] [place] [address]- 2915 Jun, [facility] [place] [facility] [address] [id number] [place] [address]- 3029 Jun, [facility] [place] [facility] [address] [id number] [place] [address]- 6576 Jun, [facility] [place] [facility] [address] [id number] [place] [address]- 5783 Jun, [facility] [place] [facility] [address] [id number] [place] [address]- 6195 Jun, [facility] [place] [facility] [address] [id number] [place] [address]- 9777 May, [facility] [place] [facility] [address] [id number] [place] [address]- 2277 May, [facility] [place] [facility] [address] [id number] [place] [address]- 1221 May, [facility] [place] [facility] [address] [id number] [place] [address]- 7212 May, [facility] [place] [facility] [address] [id number] [place] [address]- 0815 May, [facility] [place] [facility] [address] [id number] [place] [address]- 8487 May, [facility] [place] [facility] [address] [id number] [place] [address]- 3397 May, [facility] [place] [facility] [address] [id number] [place] [address]- 9834 May, [facility] [place] [facility] [address] [id number], [place] [address]- 0126 May, [facility] [address] [id number] [place] [address]- 1173 Apr, [facility] [place] [facility] [address] [id number] [place] [address]- 4277 Apr, [facility] [address] [id number] [place] [address]- 5623 Apr, [facility] [address] [id number] [place] [address]- 3706 Apr, [facility] [address] [id number] [place] [address]- 8601 Apr, [facility] [address] [id number] [place] [address]- 8980 Apr, [facility] [address] [facility] [id number] [place] [address]- 9067 Apr, [facility] [address] [id number] [place] [address]- 8702 March, [facility] [address] [id number] [place] [address]- 4814 Feb, [facility] [address] [id number] [place] [address]- 1312 Feb, [facility] [address] [id number] [place] [address]- 7494 Feb, [facility] [place] [facility] [address] [id number], [place] [address]- 5338 28 Jan, 2013 [facility] [place] [facility] [address] [id number] [place] [address]- 7589 21 Jan, 2013 [facility] [place] [facility] [address] [id number] [place] [address]- 9199 19 Jan, 2013 [facility] [place] [facility] [address] [id number] [place] [address]- 8842 14 Jan, 2013 [facility] [place] [facility] [address] [id number] [place] [address]- 7664 12 Jan, 2013 [facility] [place] [facility] [address] [id number] [place] [address]- 5814 08 Jan, 2013 [facility] [place] [facility] [address] [id number] [place] [address]- 5834 07 Jan, 2013 [facility] [place] [facility] [address] [id number] [place] [address]- 5755 04 Jan, 2013 [facility] [place] [facility] [address] [id number] [place] [address]- 1937 28 Dec, 2012 [facility] [place] [facility] [address] [id number] [place] [address]- 5076 25 Dec, 2012 [facility] [place] [facility] [address] [id number] [place] [address]- 4347 13 Dec, 2012 [facility] [place] [facility] [address] [id number] [place] [address]- 3384 Dec, [facility] [place] [facility] [address] [id number] [place] [address] 07 Dec, 2012 [facility] [place] [facility] [address] [facility] [id number] [place] [address] 06 Dec, 2012 [facility] [place] [facility] [address] [facility] [id number] [place] [address] 05 Dec, 2012 [facility] [place] [facility] [address] [id number] [place] [address]843 Nov, [facility] [place] [facility] [address] [id number] [place] [address] 3312 24 Nov, 2012 [facility] [place] [facility] [address] [id number] [place] [address] 18 Nov, 2012 [facility] [place] [facility] [address] [id number] [place] [address] 15 Nov, 2012 [facility] [place] [facility] [address] [id number] [place] [address]46 Nov, [facility] [address] [id number] [place] [address] 4867 Nov, [facility] [place] [facility] [address] [id number] [place] [address]- [address]246 Nov, [facility] [address] [facility] [id number] [place] [address]- [address] Oct, [facility] [place] [facility] [address] [id number] [place] [address]150 Oct, [facility] [address] [id number] [place] [address]- [address] Oct, [facility] [place] [facility] [address] [id number] [place] [address]- 6[address] Oct, [facility] [address] [id number] [place] [address] Oct, [facility] [place] [facility] [address] [id number] [place] [address]- 3923 Oct, [facility] [address] [facility] [id number] [place] [address]- [address] Oct, [facility] [place] [facility] [address] [facility] [id number] [place] [address]- 1477 Oct, [facility] [place] [facility] [address] [facility] [id number] [place] [address]- [address]131 Oct, [facility] [place] [facility] [address] [id number] [place] [address]- 3749 Oct, [facility] [place] [facility] [address] [id number] [place] [address]- 7653 Oct, [facility] [place] [facility] [address] [id number] [place] [address]- 8148 Oct, [facility] [place] [facility] [address] [facility] [id number] [place] [address]- [address]15 Sep, [facility] [place] [facility] [address] [id number] [place] [address]- 1790 Sep, [facility] [place] [facility] [address] [id number] [place] [address]- 8[address] Sep, [facility] [place] [facility] [address] [id number] [place] [address]- [address] Sep, [facility] [place] [facility] [address] [id number] [place] [address]- 2738 Sep, [facility] [place] [facility] [address] [id number] [place] [address]- 5148 Sep, [facility] [place] [facility] [address] [id number] [place] [address]- 9811 Sep, [facility] [place] [facility] [address] [id number] [place] [address]- 8595 Sep, [facility] [place] [facility] [address] [id number] [place] [address]- 6624 Sep, [facility] [place] [facility] [address] [id number] [place] [address]- 6410 Sep, [facility] [place] [facility] [address] [id number] [place] [address]- 8032 Sep, [facility] [place] [facility] [address] [facility] [id number] [place] [address]- 7960 Aug, [facility] [place] [facility] [address] [id number] [place] [address]- 4714 Aug, [facility] [place] [facility] [address] [id number] [place] [address]- 7682 Aug, [facility] [place] [facility] [address] [id number] [place] [address]- 1462 Aug, [facility] [place] [facility] [address] [id number] [place] [address]- 8289 Aug, [facility] [place] [facility] [address] [id number] [place] [address]- 7406 Aug, [facility] [place] [facility] [address] [id number] [place] [address]- 2160 Aug, [facility] [place] [facility] [address] [id number] [place] [address]- 7094 Aug, [facility] [place] [facility] [address] [id number] [place] [address]- 6035 Aug, [facility] [place] [facility] [address] [id number] [place] [address]- [address]114 Aug, [facility] [place] [facility] [address] [id number] [place] [address]- 4394 Jul, [facility] [place] [facility] [address] [id number] [place] [address]- 8124 Jul, [facility] [place] [facility] [address] [id number] [place] [address]- 6248 Jul, [facility] [place] [facility] [address] [id number] [place] [address]- 4426 Jul, [facility] [place] [facility] [address] [id number] [place] [address]- 2004 Jun, [facility] [place] [facility] [address] [id number] [place] [address]- [address] Jun, [facility] [place] [facility] [address] [id number] [place] [address]- 1600 Jun, [facility] [place] [facility] [address] [id number], [place] [address]- [address] Jun, [facility] [place] [facility] [address] [id number] [place] [address]- 9212 Jun, [facility] [place] [facility] [address] [id number] [place] [address]- [address]50 Jun, [facility] [place] [facility] [address] [id number] [place] [address]- 8690 Jun, [facility] [place] [facility] [address] [id number] [place] [address]- 6662 24 May, 2012 [facility] [place] [facility] [address] [id number] [place] [address]- 1278 May, [facility] [place] [facility] [address] [id number] [place] [address]- 7356 May, [facility] [place] [facility] [address] [id number] [place] [address]- 1496 May, [facility] [place] [facility] [address] [id number] [place] [address]- 0331 May, [facility] [place] [facility] [address] [id number] [place] [address]- 4226 Apr, [facility] [place] [facility] [address] [id number] [place] [address]- 7974 Apr, [facility] [place] [facility] [address] [id number] [place] [address]- 2952 Apr, [facility] [place] [facility] [address] [id number] [place] [address]- 5841 Apr, [facility] [place] [facility] [address] [id number] [place] [address]- 4535 Apr, [facility] [place] [facility] [address] [id number] [place] [address]- 0571 March, [facility] [place] [facility] [address] [id number] [place] [address]- 1575 March, [facility] [place] [facility] [address] [id number] [place] [address]- 0551 March, [facility] [place] [facility] [address] [id number] [place] [address]- 7393 March, [facility] [place] [facility] [address] [id number] [place] [address]- 7311 March, [facility] [place] [facility] [address] [id number] [place] [address]- 8850 March, [facility] [place] [facility] [address] [id number] [place] [address]- 8790 March, [facility] [address] [id number] [place] [address]- 6022 March, [facility] [place] [facility] [address] [id number] [place] [address]- 6153 March, [facility] [facility] [address] [id number] [place] [address] March, [facility] [address] [id number] [place] [address] Feb, [facility] [place] [facility] [address] [id number] [place] [address] Feb, [facility] [address] [id number] [place] [address] Feb, [facility] [address] [id number] [place] [address] Feb, [facility] [address] [id number] [place] [address] Feb[place] [facility] [place] [facility] [address] [id number] [place] [address] Feb, [facility] [place] [facility] [address] [id number] [place] [address] Feb, [facility] [place] [place] [facility] [address] [id number] [place] [address] Feb, [facility] [place] [facility] [address] [id number] [place] [address] Feb, [facility] [place] [facility] [address] [id number] [place] [address] Jan, [facility] [place] [facility] [address] [id number] [place] [address] Jan, [facility] [place] [facility] [address] [id number] [place] [address] Jan, [facility] [address] [id number] [place] [address] Jan, [facility] [address] [id number] [place] [address] Dec, [facility] [address] [id number] [place] [address] Dec, [facility] [address] [id number] [place] [address] Nov, [facility] [address] [id number] [place] [address] Nov, [facility] [address] [id number] [place] [address] Nov, [facility] [address] [id number] [place] [address] Nov, [facility] [address] [id number] [place] [address] Nov, [facility] [address] [id number] [place] [address] Oct, [facility] [address] [id number] [place] [address] Oct, [facility] [address] [id number] [place] [address] Oct, [facility] [place] [place] [facility] [address] [id number] [place] [address] Oct, [facility] [place] [facility] [address] [id number] [place] [address] Oct, [facility] [place] [facility] [address] [id number] [place] [address] Oct, [facility] [place] [facility] [address] [id number] [place] [address] Oct, [facility] [place] [facility] [address] [facility] [id number] [place] [address] Oct, [facility] [address] [facility] [id number] [place] [address] Sep, IMMUNIZATIONS No Known Immunizations SOCIAL HISTORY Never Assessed REASON FOR VISIT Requests return call PLAN OF CARE VITAL SIGNS MEDICATIONS No Known Medications RESULTS No Results PROCEDURES No Known procedures INSTRUCTIONS MEDICATIONS ADMINISTERED No Known Medications MEDICAL (GENERAL) HISTORY Type Description Date 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
--- OUTSIDE RECORDS SUMMARY | 2018-09-04 11:35 | XMS REPORT ---
Author Author SHAHNAZ MARQUEZ [facility] Address [address] [place] [address] Care Team Providers Care Director Of Radiology Name Role Phone SHAHNAZ MARQUEZ Unavailable PROBLEMS Type Condition ICD9-CM Code PLU56-RL Code Onset Dates Condition Status SNOMED Code Problem Type 2 diabetes mellitus without complication, without long-term current use of insulin E11.9 Active 695675136 Problem Reactive depression F32.9 Active 85952797 Problem Ventral hernia without obstruction or gangrene K43.9 Active 064999973 Problem 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 Active 70450622 Problem Paroxysmal atrial fibrillation I48.0 Active 208918415 Problem Anxiety F41.9 Active 40834866 Problem Pharyngeal dysphagia R13.13 Active 04110358771976 Problem Insomnia G47.00 Active 556372862 Problem Peripheral vascular disease I73.9 Active 707062035 Problem Coronary artery disease I25.10 Active 34259279 Problem Hyperlipidemia E78.5 Active 37571078 Problem Other chronic pain G89.29 Active 23785646 Problem Hypertension I10 Active 68224084 Problem Low back pain M54.5 Active 669560289 ALLERGIES No Information ENCOUNTERS Encounter Location Date Diagnosis [facility] [employer] [address] [facility] [place] [id number] Jun, 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 [facility] [address] [id number] [address] Jun, Other chronic pain G89.29 [facility] [address] [id number] [address] Jun, [facility] [employer] [address] [address] [place] [id number] May, Anxiety F41.9 ; Type 2 diabetes mellitus without complication, without long-term current use of insulin E11.9 ; Hypertension I10 ; Low back pain M54.5 ; Paroxysmal atrial fibrillation I48.0 and 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 [facility] [address] [id number], [place] [address] May, Other chronic pain G89.29 [facility] [employer] [address] [place] [id number] May, Low back pain M54.5 [facility] [address] [id number] [place] [address] 69661- 6230 May, [facility] [address] [id number] [place] [address] 40184- 9048 Apr, Other chronic pain G89.29 [facility] [address] [id number] [place] [address] 46814- 7869 Apr, [facility] [address] [facility] [id number] [place] [address] 06943- 4107 Apr, [facility] [employer] [address] [place] [id number] Apr, Closed compression fracture of L3 lumbar vertebra with routine healing, subsequent encounter S32.030D [employer] [address] [place] [id number] Apr, Low back pain M54.5 [employer] [address] [place] [id number] Apr, Coccydynia M53.3 [facility] [address] [facility] [id number], [place] [address] March, [facility] [address] [id number], [place] [address] 1440 March, Other chronic pain G89.29 [facility] [address] [id number], [place] [address] 3979 March, [facility] [address] [facility] [id number], [place] [address] 3828 March, [facility] [address] [facility] [id number], [place] [address] 7[address] Feb, [facility] [address] [id number], [place] [address] 58[address] Feb, Other chronic pain G89.29 Via [employer] [address] [place] [id number] Feb, Other chronic pain G89.29 and Anxiety F41.9 [facility] [address]00565[address], [place] [address] 4[address] Feb, [facility] [address]00565100[place], [place] [address] 0468 Jan, [facility] [id number] [place] [address] 46057- 6015 Jan, [facility] [id number] [place] [address] 36370- 0279 Jan, [facility] [id number] [place] [address] 05972- 3185 Jan, [facility] [address]00565100[place], [place] [address] Dec, [facility] [employer] [address] [place] [id number] Dec, Peripheral vascular disease I73.9 ; 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 ; Other chronic pain G89.29 ; Anxiety F41.9 ; Reactive depression F32.9 ; Insomnia G47.00 and Type 2 diabetes mellitus without complication, without long-term current use of insulin E11.9 [facility] [address] [id number] [place] [address] Nov [facility] [address] [id number][place] [id number] Nov, Anxiety F41.9 [facility] [address] [id number], [place] [address] 3765 Nov, [facility] [id number] [id number] Nov, Anxiety F41.9 [facility] [employer] [address] [place] [id number] Nov, Status post surgery Z98.890 ; Confused R41.0 ; Anxiety F41.9 and Other chronic pain G89.29 [facility] [id number][place] [address] Nov, Other chronic pain G89.29 [facility] [address]00565100[place], [place] [address] 1856 Oct, [facility] [id number] [place] [address] [id number] Oct, Other chronic pain G89.29 [facility] [id number] [place] [address] 57979- 6546 Oct, Anxiety F41.9 [facility] [id number] [place] [address] [id number] Sep, Other chronic pain G89.29 [facility] [id number] [place] [address] [id number] Sep, [facility] [employer] [address] [place] [id number] Aug, Dysuria R30.0 and Anxiety F41.9 [facility] [address]00565100[place], [place] [address] Aug, [facility] [id number], [place] [address] Aug, Other chronic pain G89.29 [facility] [id number] [place] [address] 54683- 8306 Jul, Other chronic pain G89.29 [facility] [id number][place] [address] Jun, [facility] [id number] [place] [address] [id number] Jun, Other chronic pain G89.29 [facility] [address]00565100[place], [place] [address] Jun, [facility] [address]00565100[place], [place] [address] 9234 May, Other chronic pain G89.29 [facility] [id number] [place] [address] 66900- 9660 Apr, Other chronic pain G89.29 Via [facility] [employer] [address] [place] [id number] Apr, Reactive depression F32.9 and Pharyngeal dysphagia R13.13 [facility] [id number] [place] [address] 15498- 6456 Apr, Urinary tract infection without hematuria, site unspecified N39.0 [facility] [id number] [place] [address] 92745- 6953 March, Other chronic pain G89.29 [place] [id number] [place] [address] 91342- 2213 Feb, Other chronic pain G89.29 [facility] [id number] [place] [address] 64304- 0379 Feb, [facility] [id number] [place] [address] [id number] Feb, Via [employer] [address] [place] [id number] Feb, Dysuria R30.0 and Ventral hernia without obstruction or gangrene K43.9 [facility] [address] [place] [address] 51439- 7307 Jan, Other chronic pain G89.29 [facility] [id number] [place] [address] [id number] Dec, Other chronic pain G89.29 [facility] [address] [place] [address] [id number]- 1276 Nov, Other chronic pain G89.29 [facility] [employer] [place] [employer] [address] [place] [id number] Nov, Lymphadenitis I88.9 [facility] [address] [facility] [id number] [place] [address] 26414- 4507 Nov, Other chronic pain G89.29 [facility] [id number] [place] [address] 62424- 0511 Nov, [facility] [place] [facility] [id number] [place] [address] [id number] Nov, Other chronic pain G89.29 Via [facility] [address] [place] [id number] Oct, Low back pain M54.5 ; Hypertension I10 and Type 2 diabetes mellitus without complication, without long-term current use of insulin E11.9 [facility] [id number] [place] [address] 62697- 2577 Oct, [facility] [id number] [place] [address] 47535- 4634 Oct, [facility] [id number] [place] [address] 11701- 0772 Oct, [facility] [id number] [place] [address] 29647- 8291 Oct, [facility] [id number] [place] [address] 68597- 0928 Sep, [facility] [id number] [place] [address] 23944- 7337 Sep, [facility] [id number] [place] [address] 26892- 2625 Aug, Other chronic pain G89.29 [facility] [id number] [place] [address] 55187- 6051 Jul, [facility] [id number] [place] [address] 83936- 5304 Jul, [facility] [id number] [place] [address] 416987- 5623 Jul, [facility] [id number] [place] [address] 31248- 5493 Jun, [facility] [address], [place] [address]- 9125 Jun, Via [facility] [address] [place] [id number] Jun, Low back pain M54.5 ; Other chronic pain G89.29 and Coronary artery disease I25.10 [facility] [id number] [place] [address] 89692- 1459 Jun, [facility] [id number] [place] [address] 12714- 4645 May, [facility] [id number] [place] [address] 93714- 7322 May, [facility] [id number] [place] [address] 41196- 8063 May, Other chronic pain G89.29 [facility] [id number] [place] [address] 61432- 6834 May, [facility] [id number] [place] [address] 64611- 7134 Apr, [facility] [id number] [place] [address] 07534- 3348 Apr, Acute cystitis without hematuria N30.00 [facility] [address] [place] [address] 17592- 7899 Apr, Acute cystitis without hematuria N30.00 ; Coronary artery disease I25.10 ; Low back pain M54.5 and Other chronic pain G89.29 [facility] [address], [place] [address]- 9961 Apr, Other chronic pain G89.29 [facility] [address], [place] [address]- 3307 March, Other chronic pain G89.29 [facility] [id number] [place] [address] 31018- 7662 18 Feb, 2016 [facility] [address], [place] [address]- 8004 15 Feb, 2016 Arthritis M19.90 [facility] [address] [place] [address] 19447- 3397 13 Feb, 2016 [facility] [id number] [place] [address] 93917- 7292 30 Jan, 2016 [facility] [id number] [place] [address] 18313- 7519 Jan, [facility] [id number] [place] [address] 62169- 1119 Jan, Other chronic pain G89.29 [facility] [id number] [place] [address] 65109- 2264 Jan, Hypertension I10 ; Coronary artery disease I25.10 and Insomnia G47.00 [facility] [id number] [place] [address] 18287- 1890 Jan, [facility] [id number] [place] [address] 13322- 4658 Dec, Right hip pain M25.551 [facility] [id number] [place] [address] 94660- 7259 Dec, [facility] [id number] [place] [address] 42060- 9202 Dec, [facility] [id number] [place] [address] 86678- 2549 Dec, [facility] [id number] [place] [address] 45994- 1149 Dec, Other chronic pain G89.29 [facility] [address] [place] [address] 91805- 2027 Dec, [facility] [id number] [place] [address] 13884- 9464 Nov, [facility] [id number] [place] [address] 90748- 9407 Nov, Other chronic pain G89.29 [facility] [id number] [place] [address] 35612- 4236 Nov, Right hip pain M25.551 and Coronary artery disease I25.10 [facility] [address] 28911- 2961 Nov, Other chronic pain G89.29 [facility] [id number] [place] [address] 69286- 0392 Oct, [facility] [address] 20969- 1764 Oct, [facility] [id number] [place] [address] 19533- 9778 Sep, [facility] [id number] [place] [address] 20816- 6161 Sep, [facility] [id number] [place] [address] 27992- 3392 Aug, [facility] [id number] [place] [address] 15801- 6082 Aug, Hypertension I10 ; Coronary artery disease I25.10 and Arthritis M19.90 [facility] [id number] [place] [address] 27040- 4561 Jun, [facility] [id number] [place] [address] 74042- 0479 Jun, Essential hypertension, benign 401.1 ; Other chronic pain 338.29 and Chronic airway obstruction, not elsewhere classified 496 [facility] [id number] [place] [address] 51925- 7925 Jun, [facility] [id number] [place] [address] 03380- 4492 Jun, [facility] [address] [id number] [place] [address]- 4278 Jun, [facility] [address] [id number] [place] [address]- 6246 May, [facility] [address] [id number] [place] [address]- 1182 May, [facility] [address] [id number] [place] [address]- 4043 Apr, [facility] [address] [id number] [place] [address]- 6001 Apr, [facility] [address] [id number] [place] [address]- 3556 Apr, [facility] [address] [id number] [place] [address]- 4240 March, [facility] [address] [id number] [place] [address]- 6951 March, [facility] [address] [id number] [place] [address]- 6394 March, [facility] [address] [id number] [place] [address]- 7018 March, [facility] [address] [facility] [id number] [place] [address]- 7999 March, Sialadenitis 527.2 [facility] [address] [id number] [place] [address]- 0359 Feb, [facility] [place] [facility] [address] [id number] [place] [address]- 8065 Feb, [facility] [address] [id number] [place] [address]- 4469 Feb, [facility] [address] [id number] [place] 6737 Feb, [facility] [address] [id number], [place] [address]- 1756 Feb, [facility] [place] [facility] [address] [id number] [place] [address]- 1986 Jan, [facility] [place] [facility] [address] [id number] [place] [address]- 8422 Jan, [facility] [place] [facility] [address] [facility] [id number] [place] [address]- 6334 Jan, [facility] [place] [facility] [address] [id number] [place] [address]- 0771 Jan, [facility] [place] [facility] [address] [id number] [place] [address]- 5663 Jan, [facility] [place] [facility] [address] [facility] [id number] [place] [address]- 5632 Jan, [facility] [place] [facility] [address] [id number] [place] [address]- 5018 Dec, [facility] [place] [facility] [address] [facility] [id number] [place] [address]- 4929 Dec, 2014 [facility] [place] [facility] [address] [facility] [id number] [place] [address]- 2565 Dec, 2014 [facility] [place] [facility] [address] [facility] [id number] [place] [address]- 0945 Dec, [facility] [place] [facility] [address] [facility] [id number] [place] [address]- 9339 Dec, 2014 [facility] [place] [facility] [address] [facility] [id number], [place] [address]- 0622 Dec, 2014 [facility] [place] [facility] [address] [id number], [place] [address]- 6698 Nov, [facility] [place] [facility] [address] [facility] [id number], [place] [address]- 7071 Nov, [facility] [place] [facility] [address] [facility] [id number], [place] [address]- 9709 Nov, [facility] [place] [facility] [address] [id number] [place] [address]- 0234 Nov, [facility] [address] [id number] [place] [address]- 2801 Nov, [facility] [place] [facility] [address] [id number] [place] [address]- 4793 Nov, [facility] [address] [id number] [place] [address]- 4011 Nov, [facility] [address] [id number] [place] [address]- 4518 Nov, [facility] [address] [id number] [place] [address]- 1257 Nov, [facility] [address] [id number] [place] [address]- 7760 Nov, [facility] [address] [id number] [place] [address]- 1237 Nov, [facility] [address] [id number] [place] [address]- 3298 Nov, [facility] [address] [id number] [place] [address]- 4830 Nov, [facility] [place] [facility] [address] [id number] [place] [address]- 4141 Nov, [facility] [place] [facility] [address] [id number] [place] [address]- 2491 Oct, [facility] [place] [facility] [address] [id number] [place] [address]- 8093 Oct, [facility] [place] [facility] [address] [id number] [place] [address] Oct, [facility] [place] [facility] [address] [id number] [place] [address] Oct, [facility] [place] [facility] [address] [id number] [place] [address] 18 Oct, 2014 [facility] [place] [facility] [address] [id number] [place] [address] Oct, [facility] [place] [facility] [address] [id number] [place] [address] Oct, [facility] [place] [facility] [address] [id number] [place] [address] Oct, [facility] [place] [facility] [address] [id number] [place] [address] Oct, [facility] [place] [facility] [address] [id number] [place] [address] Sep, [facility] [place] [facility] [address] [id number] [place] [address] Sep, [facility] [place] [facility] [address] [id number] [place] [address] Sep, [facility] [place] [facility] [address] [id number] [place] [address] Sep, [facility] [place] [facility] [address] [id number] [place] [address] Sep, [facility] [place] [facility] [address] [id number] [place] [address] Sep, [facility] [place] [facility] [address] [id number] [place] [address] Sep, [facility] [place] [facility] [address] [id number] [place] [address] Sep, [facility] [place] [facility] [address] [id number] [place] [address] Sep, [facility] [place] [facility] [address] [id number] [place] [address] Sep, [facility] [place] [facility] [address] [id number] [place] [address] Sep, [facility] [place] [facility] [address] [id number] [place] [address] Sep, [facility] [place] [facility] [address] [id number] [place] [address] 30 Aug, 2014 [facility] [place] [facility] [address] [id number] [place] [address] 30 Aug, 2014 [facility] [place] [facility] [address] [id number] [place] [address] 29 Aug, 2014 [facility] [place] [facility] [address] [id number] [place] [address] 29 Aug, 2014 [facility] [place] [facility] [address] [id number] [place] [address] Aug, [facility] [place] [facility] [address] [id number] [place] [address] Aug, [facility] [place] [facility] [address] [id number] [place] [address] Aug, [facility] [place] [facility] [address] [id number] [place] [address] 17 Aug, 2014 [facility] [place] [facility] [address] [id number] [place] [address] 30 Jul, 2013 [facility] [place] [facility] [address] [id number] [place] [address] 30 Sep, 2013 [facility] [place] [facility] [address] [id number] [place] [address] 30 Sep, 2013 [facility] [place] [facility] [address] [id number] [place] [address] 30 Sep, 2013 [facility] [place] [facility] [address] [id number] [place] [address]- [address] 25 Sep, 2013 [facility] [place] [facility] [address] [id number] [place] [address] 25 Sep, 2013 [facility] [place] [facility] [address] [id number] [place] [address] Jul, [facility] [place] [facility] [address] [id number] [place] [address] 7181 Jul, [facility] [place] [facility] [address] [id number] [place] [address] 2303 Jul, [facility] [place] [facility] [address] [id number] [place] [address] 4[address] Jul, [facility] [place] [facility] [address] [id number] [place] [address] 4985 Jun, [facility] [place] [facility] [address] [id number] [place] [address] 9370 Jun, [facility] [place] [facility] [address] [id number] [place] [address] 4271 Jun, [facility] [place] [facility] [address] [id number] [place] [address]- 6787 Jun, [facility] [place] [facility] [address] [id number] [place] [address]- 4192 Jun, [facility] [place] [facility] [address] [id number] [place] [address]- 2156 Jun, [facility] [place] [facility] [address] [id number] [place] [address]- 3121 Jun, [facility] [place] [facility] [address] [id number] [place] [address]- 4557 Jun, [facility] [place] [facility] [address] [id number] [place] [address] Jun, [facility] [place] [facility] [address] [id number] [place] [address]- 1575 Jun, [facility] [place] [facility] [address] [id number] [place] [address]- 4070 Jun, [facility] [place] [facility] [address] [id number] [place] [address]- 7387 Jun, [facility] [place] [facility] [address] [id number] [place] [address]- 2970 Jun, [facility] [place] [facility] [address] [id number] [place] [address]- 0011 Jun, [facility] [place] [facility] [address] [id number] [place] [address]- 6977 Jun, [facility] [place] [facility] [address] [id number] [place] [address]- 0184 Jun, [facility] [place] [facility] [address] [id number] [place] [address]- 0691 Jun, [facility] [place] [facility] [address] [id number] [place] [address]- 3719 Jun, [facility] [place] [facility] [address] [id number] [place] [address]- 5072 Jun, [facility] [place] [facility] [address] [id number] [place] [address]- 8041 Jun, [facility] [place] [facility] [address] [id number] [place] [address]- 8564 Jun, [facility] [place] [facility] [address] [id number] [place] [address]- 1757 Jun, [facility] [place] [facility] [address] [id number] [place] [address]- 0060 May, [facility] [place] [facility] [address] [id number] [place] [address]- 9766 May, [facility] [place] [facility] [address] [id number] [place] [address]- 4889 May, [facility] [place] [facility] [address] [id number] [place] [address]- 9433 May, [facility] [place] [facility] [address] [id number] [place] [address]- 4264 May, [facility] [place] [facility] [address] [id number] [place] [address]- 6045 May, [facility] [place] [facility] [address] [id number] [place] [address]- 5[address] May, 2013 [facility] [place] [facility] [address] [id number] [place] [address]- 7152 May, 2013 [facility] [place] [facility] [address] [id number] [facility] [place] [address] 7[address] May, 2013 [facility] [place] [facility] [address] [id number] [place] [address] 8650 May, 2013 [facility] [place] [facility] [address] [id number] [place] [address]- 0329 May, 2013 [facility] [place] [facility] [address] [id number] [place] [address]- 8822 May, [facility] [place] [facility] [address] [id number] [place] [address]- 2152 May, [facility] [place] [facility] [address] [id number] [place] [address]- 3465 Apr, [facility] [place] [facility] [address] [id number] [place] [address]- 1431 Apr, [facility] [place] [facility] [address] [id number] [place] [address]- 1308 Apr, [facility] [place] [facility] [address] [id number] [place] [address]- 0398 Apr, [facility] [place] [facility] [address] [id number] [place] [address]- 0829 Apr, [facility] [place] [facility] [address] [id number] [place] [address]- 4958 Apr, [facility] [place] [facility] [address] [id number] [place] [address]- 5910 Apr, [facility] [place] [facility] [address] [id number] [place] [address]- 0372 Apr, [facility] [place] [facility] [address] [id number] [place] [address]- 7467 Apr, [facility] [address] [id number] [place] [address]- 1375 March, [facility] [place] [facility] [address] [id number] [place] [address]- 3397 March, [facility] [place] [facility] [address] [id number] [place] [address]- 4074 March, [facility] [place] [facility] [address] [id number] [place] [address]- 8400 March, [facility] [place] [facility] [address] [id number] [place] [address]- 4792 March, [facility] [place] [facility] [address] [id number] [place] [address]- 0941 March, [facility] [place] [facility] [address] [id number] [place] [address]- 6969 March, [facility] [place] [facility] [address] [id number] [place] [address]- 8205 March, [facility] [place] [facility] [address] [id number] [place] [address]- 4545 March, [facility] [place] [facility] [address] [id number] [place] [address]- 6333 March, [facility] [place] [facility] [address] [id number] [place] [address] 2001 March, [facility] [place] [facility] [address] [id number] [place] [address] 8245 March, [facility] [place] [facility] [address] [id number] [place] [address]- 9723 March, [facility] [place] [facility] [address] [id number] [place] [address]- 3866 March, [facility] [place] [facility] [address] [id number] [place] [address]- 2775 March, [facility] [place] [facility] [address] [id number] [place] [address]- 2946 March, [facility] [place] [facility] [address] [id number] [place] [address]- 4746 March, [facility] [place] [facility] [address] [id number] [place] [address]- 9590 March, [facility] [place] [facility] [address] [id number] [place] [address]- 4427 March, [facility] [place] [facility] [address] [id number] [place] [address]- 1247 March, [facility] [place] [facility] [address] [id number] [place] [address]- 0983 Feb, [facility] [place] [facility] [address] [id number] [place] [address]- 5912 Feb, [facility] [place] [facility] [address] [id number] [place] [address]- 1958 Feb, [facility] [place] [facility] [address] [id number] [place] [address]- 3091 Feb, [facility] [place] [facility] [address] [id number] [place] [address]- 6460 Feb, [facility] [place] [facility] [address] [id number] [place] [address]- 3024 Feb, [facility] [place] [facility] [address] [id number] [place] [address]- 7347 Feb, [facility] [place] [facility] [address] [id number] [place] [address]- 7876 Feb, [facility] [place] [facility] [address] [id number] [place] [address]- 7306 Jan, [facility] [place] [facility] [address] [id number] [place] [address]- 1783 Jan, [facility] [place] [facility] [address] [id number] [place] [address]- 0322 Jan, [facility] [place] [facility] [address] [id number] [place] [address]- 7764 Jan, [facility] [place] [facility] [address] [id number] [place] [address]- 2002 Jan, [facility] [place] [facility] [address] [id number] [place] [address]- 0756 Jan, [facility] [place] [facility] [address] [id number] [place] [address]- 2861 Jan, [facility] [place] [facility] [address] [id number] [place] [address]- 2101 Jan, [facility] [place] [facility] [address] [id number] [place] [address]- 6098 Jan, [facility] [place] [facility] [address] [id number] [place] [address]- 1443 Jan, [facility] [place] [facility] [address] [id number] [place] [address]- 9946 Dec, [facility] [place] [facility] [address] [id number] [place] [address]- 5249 Dec, [facility] [place] [facility] [address] [id number] [place] [address]- 6158 Dec, [facility] [place] [facility] [address] [id number] [place] [address]- 9440 Dec, [facility] [place] [facility] [address] [id number] [place] [address]- 5599 2013 [facility] [place] [facility] [address] [id number] [place] [address]- 9536 Dec, [facility] [place] [facility] [address] [id number] [place] [address]- 4887 Dec, [facility] [place] [facility] [address] [id number] [place] [address]- 5368 Dec, [facility] [place] [facility] [address] [id number] [place] [address]- 0928 29 Nov, 2013 [facility] [place] [facility] [address] [id number] [place] [address]- 3360 Nov, [facility] [place] [facility] [address] [id number] [place] [address]- 7563 Nov, [facility] [place] [facility] [address] [id number] [place] [address]- 4986 Nov, [facility] [place] [facility] [address] [id number] [place] [address]- 1832 Nov, [facility] [place] [facility] [address] [id number] [place] [address]- 2146 Nov, [facility] [place] [facility] [address] [id number] [place] [address]- 9546 Nov, [facility] [place] [facility] [address] [id number] [place] [address]- 8150 Nov, [facility] [place] [facility] [address] [id number] [place] [address]- 9579 Nov, [facility] [place] [facility] [address] [id number] [place] [address]- 2959 Nov, [facility] [place] [facility] [address] [id number] [place] [address]- 7609 Nov, [facility] [place] [facility] [address] [id number] [place] [address]- 2854 Nov, [facility] [place] [facility] [address] [id number] [place] [address]- 7305 Nov, [facility] [place] [facility] [address] [id number] [place] [address]- 8763 Oct, [facility] [place] [facility] [address] [id number] [place] [address]- 1972 Oct, [facility] [place] [facility] [address] [id number] [place] [address]- 9278 Oct, [facility] [place] [facility] [address] [id number] [place] [address]- 2058 Oct, [facility] [address] [id number] [place] [address]- 5708 Oct, [facility] [address] [id number] [place] [address]- 9435 Oct, [facility] [address] [id number] [place] [address]- 9742 Oct, [facility] [address] [id number] [place] [address]- 9364 Oct, [facility] [address] [id number] [place] [address]- 4024 Oct, [facility] [address] [id number] [place] [address]- 5852 Oct, [facility] [address] [id number] [place] [address]- 3514 Oct, [facility] [address] [id number] [place] [address]- 1484 Oct, [facility] [address] [id number] [place] [address]- 0701 Oct, [facility] [address] [id number] [place] [address]- 7021 Oct, [facility] [address] [id number] [place] [address]- 0148 Sep, [facility] [place] [facility] [address] [id number] [place] [address]- 8821 Sep, [facility] [place] [facility] [address] [id number] [place] [address]- 0508 Sep, [facility] [place] [facility] [address] [id number] [place] [address]- 1874 05 Sep, 2013 [facility] [place] [facility] [address] [id number] [place] [address]- 6455 Sep, [facility] [place] [facility] [address] [id number] [place] [address]- 3818 Sep, [facility] [place] [facility] [address] [id number] [place] [address] Sep, [facility] [place] [facility] [address] [id number] [place] [address]- 1875 Sep, [facility] [place] [facility] [address] [id number], [place] [address]- 2454 Sep, [facility] [place] [facility] [address] [id number] [place] [address]- 9520 Sep, [facility] [place] [facility] [address] [id number] [place] [address]- 7879 Aug, [facility] [place] [facility] [address] [id number], [place] [address]- 0977 Aug, [facility] [place] [facility] [address] [id number], [place] [address]- 8749 Aug, [facility] [place] [facility] [address] [id number], [place] [address]- 8560 Aug, [facility] [place] [facility] [address] [id number], [place] [address]- 5742 Aug, [facility] [place] [facility] [address] [id number], [place] [address]- 3751 Aug, [facility] [place] [facility] [address] [id number], [place] [address]- 3834 Aug, [facility] [place] [facility] [address] [id number], [place] [address]- 3562 Aug, [facility] [place] [facility] [address] [id number], [place] [address]- 6524 Aug, [facility] [place] [facility] [address] [id number], [place] [address]- 5019 Aug, [facility] [place] [facility] [address] [id number] [place] [address]- 3479 18 Aug, 2012 [facility] [address] [id number] [place] [address]- 7313 18 Aug, 2013 [facility] [place] [facility] [address] [id number] [place] [address]- 0203 18 Aug, 2013 [facility] [address] [id number] [place] [address]- 4034 18 Aug, 2013 [facility] [place] [facility] [address] [id number] [place] [address]- 6889 17 Aug, 2013 [facility] [address] [id number] [place] [address]- 3293 14 Aug, 2013 [facility] [place] [facility] [address] [id number] [place] [address]- 5382 14 Aug, 2013 [facility] [place] [facility] [address] [id number] [place] [address]- 2173 01 Aug, 2013 [facility] [address] [id number] [place] [address]- 1622 20 Jul, 2013 [facility] [place] [facility] [address] [id number] [place] [address]- 4547 19 Jul, 2013 [facility] [address] [id number] [place] [address]- 8916 18 Jul, 2013 [facility] [place] [facility] [address] [id number] [place] [address]- 3236 11 Jul, 2013 [facility] [place] [facility] [address] [id number] [place] [address]- 0978 11 Jul, 2013 [facility] [place] [facility] [address] [id number] [place] [address]- 1313 Jun, [facility] [place] [facility] [address] [id number] [place] [address]- 6799 Jun, [facility] [place] [facility] [address] [id number] [place] [address]- 9634 Jun, [facility] [place] [facility] [address] [id number] [place] [address]- 4116 Jun, [facility] [place] [facility] [address] [id number] [place] [address]- 5641 Jun, [facility] [place] [facility] [address] [id number] [place] [address]- 5635 Jun, [facility] [place] [facility] [address] [id number] [place] [address]- 4659 Jun, [facility] [place] [facility] [address] [id number] [place] [address]- 3390 Jun, [facility] [place] [facility] [address] [id number] [place] [address]- 1123 Jun, [facility] [place] [facility] [address] [id number] [place] [address]- 7165 Jun, [facility] [place] [facility] [address] [id number] [place] [address]- 7467 May, [facility] [place] [facility] [address] [id number] [place] [address]- 4948 May, [facility] [place] [facility] [address] [id number] [place] [address]- 2893 May, [facility] [place] [facility] [address] [id number] [place] [address]- 5553 May, [facility] [place] [facility] [address] [id number] [place] [address]- 4670 May, [facility] [place] [facility] [address] [id number] [place] [address]- 4560 May, [facility] [place] [facility] [address] [id number] [place] [address]- 7224 May, [facility] [place] [facility] [address] [id number] [place] [address]- 7751 May, [facility] [place] [facility] [address] [id number], [place] [address]- 5081 May, [facility] [address] [id number] [place] [address]- 6645 Apr, [facility] [place] [facility] [address] [id number] [place] [address]- 2159 Apr, [facility] [address] [id number] [place] [address]- 2711 Apr, [facility] [address] [id number] [place] [address]- 7676 Apr, [facility] [address] [id number] [place] [address]- 9903 Apr, [facility] [address] [id number] [place] [address]- 1279 Apr, [facility] [address] [facility] [id number] [place] [address]- 8110 Apr, [facility] [address] [id number] [place] [address]- 0110 March, [facility] [address] [id number] [place] [address]- 3004 Feb, [facility] [address] [id number] [place] [address]- 3304 Feb, [facility] [address] [id number] [place] [address]- 8711 Feb, [facility] [place] [facility] [address] [id number], [place] [address]- 5597 28 Jan, 2013 [facility] [place] [facility] [address] [id number] [place] [address]- 7214 21 Jan, 2013 [facility] [place] [facility] [address] [id number] [place] [address]- 4024 19 Jan, 2013 [facility] [place] [facility] [address] [id number] [place] [address]- 1752 14 Jan, 2013 [facility] [place] [facility] [address] [id number] [place] [address]- 0152 12 Jan, 2013 [facility] [place] [facility] [address] [id number] [place] [address]- 9685 08 Jan, 2013 [facility] [place] [facility] [address] [id number] [place] [address] 07 Jan, 2013 [facility] [place] [facility] [address] [id number] [place] [address] 04 Jan, 2013 [facility] [place] [facility] [address] [id number] [place] [address] 28 Dec, 2012 [facility] [place] [facility] [address] [id number] [place] [address] 25 Dec, 2012 [facility] [place] [facility] [address] [id number] [place] [address] 13 Dec, 2012 [facility] [place] [facility] [address] [id number] [place] [address] Dec, [facility] [place] [facility] [address] [id number] [place] [address]97 07 Dec, 2012 [facility] [place] [facility] [address] [facility] [id number] [place] [address] 06 Dec, 2012 [facility] [place] [facility] [address] [facility] [id number] [place] [address] 05 Dec, 2012 [facility] [place] [facility] [address] [id number] [place] [address] Nov, [facility] [place] [facility] [address] [id number] [place] [address]268 24 Nov, 2012 [facility] [place] [facility] [address] [id number] [place] [address] 18 Nov, 2012 [facility] [place] [facility] [address] [id number] [place] [address] 7765 15 Nov, 2012 [facility] [place] [facility] [address] [id number] [place] [address] Nov, [facility] [address] [id number] [place] [address] Nov, [facility] [place] [facility] [address] [id number] [place] [address] Nov, [facility] [address] [facility] [id number] [place] [address]- [address] Oct, [facility] [place] [facility] [address] [id number] [place] [address] Oct, [facility] [address] [id number] [place] [address] 28[address] Oct, [facility] [place] [facility] [address] [id number] [place] [address]709 Oct, [facility] [address] [id number] [place] [address] Oct, [facility] [place] [facility] [address] [id number] [place] [address] Oct, [facility] [address] [facility] [id number] [place] [address]- 6434 Oct, [facility] [place] [facility] [address] [facility] [id number] [place] [address]- 1827 Oct, [facility] [place] [facility] [address] [facility] [id number] [place] [address]- [address]121 Oct, [facility] [place] [facility] [address] [id number] [place] [address] 7848 Oct, [facility] [place] [facility] [address] [id number] [place] [address] 48[address] Oct, [facility] [place] [facility] [address] [id number] [place] [address] Oct, [facility] [place] [facility] [address] [facility] [id number] [place] [address]- 8665 Sep, [facility] [place] [facility] [address] [id number] [place] [address] 57[address] Sep, [facility] [place] [facility] [address] [id number] [place] [address]- 2847 Sep, [facility] [place] [facility] [address] [id number] [place] [address]- 48[address] Sep, [facility] [place] [facility] [address] [id number] [place] [address]- 8280 Sep, [facility] [place] [facility] [address] [id number] [place] [address]- 1794 Sep, [facility] [place] [facility] [address] [id number] [place] [address] 8521 Sep, [facility] [place] [facility] [address] [id number] [place] [address]646 Sep, [facility] [place] [facility] [address] [id number] [place] [address] 8107 Sep, [facility] [place] [facility] [address] [id number] [place] [address] 3047 Sep, [facility] [place] [facility] [address] [id number] [place] [address]- 1707 Sep, [facility] [place] [facility] [address] [facility] [id number] [place] [address] Aug, [facility] [place] [facility] [address] [id number] [place] [address] Aug, [facility] [place] [facility] [address] [id number] [place] [address]- 3905 Aug, [facility] [place] [facility] [address] [id number] [place] [address] Aug, [facility] [place] [facility] [address] [id number] [place] [address]- [address] Aug, [facility] [place] [facility] [address] [id number] [place] [address]- 4061 Aug, [facility] [place] [facility] [address] [id number] [place] [address]- 6197 Aug, [facility] [place] [facility] [address] [id number] [place] [address]- 8842 Aug, [facility] [place] [facility] [address] [id number] [place] [address]- 2003 Aug, [facility] [place] [facility] [address] [id number] [place] [address]- 7361 Aug, [facility] [place] [facility] [address] [id number] [place] [address]- 3570 Jul, [facility] [place] [facility] [address] [id number] [place] [address] 9184 Jul, [facility] [place] [facility] [address] [id number] [place] [address]342 Jul, [facility] [place] [facility] [address] [id number] [place] [address]- 7587 Jul, [facility] [place] [facility] [address] [id number] [place] [address]- 6512 Jun, [facility] [place] [facility] [address] [id number] [place] [address]- 9193 Jun, [facility] [place] [facility] [address] [id number] [place] [address] Jun, [facility] [place] [facility] [address] [id number], [place] [address] Jun, [facility] [place] [facility] [address] [id number] [place] [address]- 3358 Jun, [facility] [place] [facility] [address] [id number] [place] [address]- [address]9 Jun, [facility] [place] [facility] [address] [id number] [place] [address]- [address] Jun, [facility] [place] [facility] [address] [id number] [place] [address]- [address]61 24 May, 2012 [facility] [place] [facility] [address] [id number] [place] [address]- 1251 May, [facility] [place] [facility] [address] [id number] [place] [address]- 8566 May, [facility] [place] [facility] [address] [id number] [place] [address]- 9798 May, [facility] [place] [facility] [address] [id number] [place] [address]- [address]153 May, [facility] [place] [facility] [address] [id number] [place] [address]- 6095 Apr, [facility] [place] [facility] [address] [id number] [place] [address]- 5129 Apr, [facility] [place] [facility] [address] [id number] [place] [address] Apr, [facility] [place] [facility] [address] [id number] [place] [address] Apr, [facility] [place] [facility] [address] [id number] [place] [address] Apr, [facility] [place] [facility] [address] [id number] [place] [address] March, [facility] [place] [facility] [address] [id number] [place] [address] March, [facility] [place] [facility] [address] [id number] [place] [address] March, [facility] [place] [facility] [address] [id number] [place] [address] March, [facility] [place] [facility] [address] [id number] [place] [address] March, [facility] [place] [facility] [address] [id number] [place] [address] March, [facility] [place] [facility] [address] [id number] [place] [address] March, [facility] [address] [id number] [place] [address] March, [facility] [place] [facility] [address] [id number] [place] [address] March, [facility] [address] [id number] [place] [address] March, [facility] [address] [id number] [place] [address] Feb, [facility] [place] [facility] [address] [id number] [place] [address] Feb, [facility] [address] [id number] [place] [address] Feb, [facility] [address] [id number] [place] [address] Feb, [facility] [address] [id number] [place] [address] Feb, [facility] [place] [facility] [address] [id number] [place] [address] Feb, [facility] [place] [facility] [address] [id number] [place] [address] Feb, [facility] [place] [facility] [address] [id number] [place] [address] Feb, [facility] [place] [facility] [address] [id number] [place] [address] Feb, [facility] [place] [facility] [address] [id number] [place] [address] Jan, [facility] [place] [facility] [address] [id number] [place] [address] Jan, [facility] [place] [facility] [address] [id number] [place] [address] Jan, [facility] [address] [id number] [place] [address] Jan, [facility] [address] [id number] [place] [address] Dec, [facility] [address] [id number] [place] [address] Dec, [facility] [address] [id number] [place] [address] Nov, [facility] [address] [id number] [place] [address] Nov, [facility] [address] [id number] [place] [address] Nov, [facility] [address] [id number] [place] [address] Nov, [facility] [address] [id number] [place] [address] Nov, [facility] [address] [id number] [place] [address] Oct, [facility] [address] [id number] [place] [address] Oct, [facility] [address] [id number] [place] [address] Oct, [facility] [place] [facility] [address] [id number] [place] [address] Oct, [facility] [place] [facility] [address] [id number] [place] [address] Oct, [facility] [place] [facility] [address] [id number] [place] [address] Oct, [facility] [place] [facility] [address] [id number] [place] [address] Oct, [facility] [place] [facility] [address] [facility] [id number] [place] [id number] Oct, [facility] [address] [facility] [id number] [place] [address] Sep, IMMUNIZATIONS No Known Immunizations SOCIAL HISTORY [...]
--- OUTSIDE RECORDS SUMMARY | 2018-09-04 11:36 | XMS REPORT ---
Author Author SHAHNAZ MARQUEZ [facility] Address [address] [place] [address] Care Team Providers Care Mill Set Up Name Role Phone SHAHNAZ MARQUEZ Unavailable PROBLEMS Type Condition ICD9-CM Code ABS88-XJ Code Onset Dates Condition Status SNOMED Code Problem Type 2 diabetes mellitus without complication, without long-term current use of insulin E11.9 Active 792949254 Problem Reactive depression F32.9 Active 20899751 Problem Ventral hernia without obstruction or gangrene K43.9 Active 463351158 Problem 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 Active 19521879 Problem Paroxysmal atrial fibrillation I48.0 Active 272659723 Problem Anxiety F41.9 Active 76234029 Problem Pharyngeal dysphagia R13.13 Active 02851616095715 Problem Insomnia G47.00 Active 337732821 Problem Peripheral vascular disease I73.9 Active 137613953 Problem Coronary artery disease I25.10 Active 00996098 Problem Hyperlipidemia E78.5 Active 48000281 Problem Other chronic pain G89.29 Active 33456192 Problem Hypertension I10 Active 61765465 Problem Low back pain M54.5 Active 412220273 ALLERGIES No Information ENCOUNTERS Encounter Location Date Diagnosis Via [email or web address] [address] [facility] [place] [id number] Jun, 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 [facility] [address] [id number] [address] Jun, Other chronic pain G89.29 [facility] [address] [id number], [place] [address] Jun, Via [employer] [address] [facility] [address] [address] [place] [id number] May, Anxiety F41.9 ; Type 2 diabetes mellitus without complication, without long-term current use of insulin E11.9 ; Hypertension I10 ; Low back pain M54.5 ; Paroxysmal atrial fibrillation I48.0 and 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 [facility] [address] [id number], [place] [address] May, Other chronic pain G89.29 Via [employer] [address] [place] [id number] May, Low back pain M54.5 [facility] [id number] [place] [address] 72534- 0071 May, [facility] [id number] [place] [address] 31039- 1280 Apr, Other chronic pain G89.29 [facility] [address] [id number] [place] [address] 93612- 1639 Apr, [facility] [address] [facility] [id number] [place] [address] 78132- 4128 Apr, Via [employer] [address] [place] [id number] Apr, Closed compression fracture of L3 lumbar vertebra with routine healing, subsequent encounter S32.030D [employer] [address] [place] [id number] Apr, Low back pain M54.5 [employer] [address] [place] [id number] Apr, Coccydynia M53.3 [facility] [address] [facility] [id number], [place] [address] March, [facility] [address] [id number], [place] [address] 7164 March, Other chronic pain G89.29 [facility] [address] [id number], [place] [address] 7887 March, [facility] [address] [facility] [id number], [place] [address] 7898 March, [facility] [address] [facility] [id number], [place] [address] 4[address] Feb, [facility] [address] [id number], [place] [address] 5631 Feb, Other chronic pain G89.29 Via [employer] [address] [place] [id number] Feb, Other chronic pain G89.29 and Anxiety F41.9 [facility] [address], [place] [address] Feb, [facility] [address]65[address], [place] [address] 5[address] Jan, [facility] [id number] [place] [address] 08947- 4782 Jan, [facility] [id number] [place] [address] 43698- 4165 Jan, [facility] [id number] [place] [address] 49794- 6027 Jan, [facility] [address]00565[address], [place] [address] 8[address] Dec, Via [email or web address] [address] [place] [id number] Dec, Peripheral vascular disease I73.9 ; 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 ; Other chronic pain G89.29 ; Anxiety F41.9 ; Reactive depression F32.9 ; Insomnia G47.00 and Type 2 diabetes mellitus without complication, without long-term current use of insulin E11.9 [facility] [address] [id number] [place] [address] Nov [facility] [address] [id number] [id number] Nov, Anxiety F41.9 [facility] [address] [id number], [place] [address] 47[address] Nov, [facility] [id number] [id number] Nov, Anxiety F41.9 [email or web address] [address] [place] [id number] Nov, Status post surgery Z98.890 ; Confused R41.0 ; Anxiety F41.9 and Other chronic pain G89.29 [facility] [id number] [id number] Nov, Other chronic pain G89.29 [facility] [address]00565[address], [place] [address] 6[address] Oct, [facility] [id number] [place] [address] [id number] Oct, Other chronic pain G89.29 [facility] [id number] [place] [address] 03586- 6226 Oct, Anxiety F41.9 [facility] [id number] [place] [address] [id number] Sep, Other chronic pain G89.29 [facility] [id number] [place] [id number] Sep, Via [employer] [address] [place] [id number] Aug, Dysuria R30.0 and Anxiety F41.9 [facility] [address]00565[address], [place] [address] 9[address] Aug, [facility] [id number] [id number] Aug, Other chronic pain G89.29 [facility] [address] [place] [address] 11421- 0496 Jul, Other chronic pain G89.29 [facility] [id number] [address] Jun, [facility] [id number] [place] [address] [id number] Jun, Other chronic pain G89.29 [facility] [address]005[address], [place] [address] 2458 Jun, [facility] [address]65[address], [place] [address] 9413 May, Other chronic pain G89.29 [facility] [address] [place] [address] 93032- 1475 Apr, Other chronic pain G89.29 [facility] [employer] [address] [place] [id number] Apr, Reactive depression F32.9 and Pharyngeal dysphagia R13.13 [facility] [address] [place] [address] 30930- 5678 Apr, Urinary tract infection without hematuria, site unspecified N39.0 [facility] [id number] [place] [address] 77751- 8435 March, Other chronic pain G89.29 [place] [id number] [place] [address] 65142- 1772 Feb, Other chronic pain G89.29 [facility] [address] [place] [address] 85875- 4706 Feb, [facility] [id number] [place] [address] [id number] Feb, Via [employer] [address] [place] [id number] Feb, Dysuria R30.0 and Ventral hernia without obstruction or gangrene K43.9 [facility] [address] [place] [address] 25269- 4467 Jan, Other chronic pain G89.29 [facility] [id number] [place] [address] [id number] Dec, Other chronic pain G89.29 [facility] [address] [place] [address] [id number]- 7876 Nov, Other chronic pain G89.29 Via [employer] [address] [place] [id number] Nov, Lymphadenitis I88.9 [facility] [address] [facility] [id number] [place] [address] 11801- 5494 Nov, Other chronic pain G89.29 [facility] [id number] [place] [address] 58416- 0080 Nov, [facility] [place] [facility] [id number] [place] [address] [id number] Nov, Other chronic pain G89.29 Via [facility] [address] [place] [id number] Oct, Low back pain M54.5 ; Hypertension I10 and Type 2 diabetes mellitus without complication, without long-term current use of insulin E11.9 [facility] [id number] [place] [address] 71942- 4524 Oct, [facility] [id number] [place] [address] 84597- 5900 Oct, [facility] [id number] [place] [address] 92735- 1956 Oct, [facility] [address] [place] [address] 65953- 4429 Oct, [facility] [id number] [place] [address] 27587- 4687 Sep, [facility] [address] [place] [address] 81027- 5096 Sep, [facility] [id number] [place] [address] 45408- 1347 Aug, Other chronic pain G89.29 [facility] [address] [place] [address] 47816- 1226 Jul, [facility] [id number] [place] [address] 22179- 0146 Jul, [facility] [address] [place] [address] 618443- 4332 Jul, [facility] [id number] [place] [address] 81989- 3252 Jun, [facility] [address], [place] [address]- 8463 Jun, Via [facility] [address] [place] [id number] Jun, Low back pain M54.5 ; Other chronic pain G89.29 and Coronary artery disease I25.10 [facility] [id number] [place] [address] 04235- 6341 Jun, [facility] [id number] [place] [address] 19142- 7061 May, [facility] [id number] [place] [address] 32998- 4537 May, [facility] [id number] [place] [address] 72133- 9150 May, Other chronic pain G89.29 [facility] [id number] [place] [address] 25715- 8261 May, [facility] [address] [place] [address] 23141- 6911 Apr, [facility] [address] [place] [address] 98896- 0290 Apr, Acute cystitis without hematuria N30.00 [facility] [address] [place] [address] 63117- 2646 Apr, Acute cystitis without hematuria N30.00 ; Coronary artery disease I25.10 ; Low back pain M54.5 and Other chronic pain G89.29 [facility] [address], [place] [address]- 7778 Apr, Other chronic pain G89.29 [facility] [address], [place] [address]- 8979 March, Other chronic pain G89.29 [facility] [id number] [place] [address] 25420- 6926 18 Feb, 2016 [facility] [address], [place] [address]- 0879 15 Feb, 2016 Arthritis M19.90 [facility] [address] [place] [address] 23427- 5123 13 Feb, 2016 [facility] [id number] [place] [address] 69407- 6314 30 Jan, 2016 [facility] [id number] [place] [address] 08164- 2716 Jan, [facility] [id number] [place] [address] 32082- 7979 Jan, Other chronic pain G89.29 [facility] [id number] [place] [address] 56143- 8063 Jan, Hypertension I10 ; Coronary artery disease I25.10 and Insomnia G47.00 [facility] [id number] [place] [address] 08874- 5346 Jan, [facility] [id number] [place] [address] 60247- 8500 Dec, Right hip pain M25.551 [facility] [id number] [place] [address] 06824- 1192 Dec, [facility] [id number] [place] [address] 38056- 9565 Dec, [facility] [address] [place] [address] 68349- 2541 Dec, [facility] [id number] [place] [address] 19916- 5853 Dec, Other chronic pain G89.29 [facility] [address] [place] [address] 11912- 0419 Dec, [facility] [id number] [place] [address] 60986- 3145 Nov, [facility] [address] [place] [address] 02077- 4461 Nov, Other chronic pain G89.29 [facility] [id number] [place] [address] 95401- 9534 Nov, Right hip pain M25.551 and Coronary artery disease I25.10 [facility] [address] 43796- 3054 Nov, Other chronic pain G89.29 [facility] [id number] [place] [address] 92444- 6380 Oct, [facility] [address] 67804- 3138 Oct, [facility] [id number] [place] [address] 29655- 2895 Sep, [facility] [id number] [place] [address] 96396- 4981 Sep, [facility] [id number] [place] [address] 85814- 0033 Aug, [facility] [id number] [place] [address] 75507- 0938 Aug, Hypertension I10 ; Coronary artery disease I25.10 and Arthritis M19.90 [facility] [id number] [place] [address] 56294- 5284 Jun, [facility] [id number] [place] [address] 09264- 7820 Jun, Essential hypertension, benign 401.1 ; Other chronic pain 338.29 and Chronic airway obstruction, not elsewhere classified 496 [facility] [id number] [place] [address] 53807- 6462 Jun, [facility] [id number] [place] [address] 91320- 5417 Jun, [facility] [address] [id number] [place] [address]- 8115 Jun, [facility] [address] [id number] [place] [address]- 5262 May, [facility] [address] [id number] [place] [address]- 0330 May, [facility] [address] [id number] [place] [address]- 9144 Apr, [facility] [address] [id number] [place] [address]- 0957 Apr, [facility] [address] [id number] [place] [address]- 9062 Apr, [facility] [address] [id number] [place] [address]- 9934 March, [facility] [address] [id number] [place] [address]- 9923 March, [facility] [address] [id number] [place] [address]- 0885 March, [facility] [address] [id number] [place] [address]- 5601 March, [facility] [address] [facility] [id number] [place] [address]- 3747 March, Sialadenitis 527.2 [facility] [address] [id number] [place] [address]- 7395 Feb, [facility] [place] [facility] [address] [id number] [place] [address]- 9179 Feb, [facility] [address] [id number] [place] [address]- 4944 Feb, [facility] [address] [id number] [place] 4301 Feb, [facility] [address] [id number], [place] [address]- 5030 Feb, [facility] [place] [facility] [address] [id number] [place] [address]- 8426 Jan, [facility] [place] [facility] [address] [id number] [place] [address]- 1680 Jan, [facility] [place] [facility] [address] [facility] [id number] [place] [address]- 3986 Jan, [facility] [place] [facility] [address] [id number] [place] [address]- 9349 Jan, [facility] [place] [facility] [address] [id number] [place] [address]- 7875 Jan, [facility] [place] [facility] [address] [facility] [id number] [place] [address]- 1130 Jan, [facility] [place] [facility] [address] [id number] [place] [address]- 7091 Dec, [facility] [place] [facility] [address] [facility] [id number] [place] [address]- 3845 Dec, 2014 [facility] [place] [facility] [address] [facility] [id number] [place] [address]- 2485 Dec, 2014 [facility] [place] [facility] [address] [facility] [id number] [place] [address]- 6806 Dec, [facility] [place] [facility] [address] [facility] [id number] [place] [address]- 1379 Dec, 2014 [facility] [place] [facility] [address] [facility] [id number], [place] [address]- 9422 Dec, 2014 [facility] [place] [facility] [address] [id number], [place] [address]- 4486 Nov, [facility] [place] [facility] [address] [facility] [id number], [place] [address]- 6671 Nov, [facility] [place] [facility] [address] [facility] [id number], [place] [address]- 6120 Nov, [facility] [place] [facility] [address] [id number] [place] [address]- 1893 Nov, [facility] [address] [id number] [place] [address]- 7286 Nov, [facility] [place] [facility] [address] [id number] [place] [address]- 2081 Nov, [facility] [address] [id number] [place] [address]- 6708 Nov, [facility] [address] [id number] [place] [address]- 3438 Nov, [facility] [address] [id number] [place] [address]- 4943 Nov, [facility] [address] [id number] [place] [address]- 5693 Nov, [facility] [address] [id number] [place] [address]- 5139 Nov, [facility] [address] [id number] [place] [address]- 1275 Nov, [facility] [address] [id number] [place] [address]- 3458 Nov, [facility] [place] [facility] [address] [id number] [place] [address]- 3996 Nov, [facility] [place] [facility] [address] [id number] [place] [address]- 5603 Oct, [facility] [place] [facility] [address] [id number] [place] [address]- 0008 Oct, [facility] [place] [facility] [address] [id number] [place] [address]- 6639 Oct, [facility] [place] [facility] [address] [id number] [place] [address]- 9640 Oct, [facility] [place] [facility] [address] [id number] [place] [address]- 6063 18 Oct, 2014 [facility] [place] [facility] [address] [id number] [place] [address]- 7808 Oct, [facility] [place] [facility] [address] [id number] [place] [address] Oct, [facility] [place] [facility] [address] [id number] [place] [address] Oct, [facility] [place] [facility] [address] [id number] [place] [address] Oct, [facility] [place] [facility] [address] [id number] [place] [address] Sep, [facility] [place] [facility] [address] [id number] [place] [address] Sep, [facility] [place] [facility] [address] [id number] [place] [address] Sep, [facility] [place] [facility] [address] [id number] [place] [address] Sep, [facility] [place] [facility] [address] [id number] [place] [address] Sep, [facility] [place] [facility] [address] [id number] [place] [address] Sep, [facility] [place] [facility] [address] [id number] [place] [address] Sep, [facility] [place] [facility] [address] [id number] [place] [address] Sep, [facility] [place] [facility] [address] [id number] [place] [address] Sep, [facility] [place] [facility] [address] [id number] [place] [address] Sep, [facility] [place] [facility] [address] [id number] [place] [address] Sep, [facility] [place] [facility] [address] [id number] [place] [address] Sep, [facility] [place] [facility] [address] [id number] [place] [address] 30 Aug, 2014 [facility] [place] [facility] [address] [id number] [place] [address] 30 Aug, 2014 [facility] [place] [facility] [address] [id number] [place] [address] 29 Aug, 2014 [facility] [place] [facility] [address] [id number] [place] [address] 29 Aug, 2014 [facility] [place] [facility] [address] [id number] [place] [address] Aug, [facility] [place] [facility] [address] [id number] [place] [address] Aug, [facility] [place] [facility] [address] [id number] [place] [address] Aug, [facility] [place] [facility] [address] [id number] [place] [address] 17 Aug, 2014 [facility] [place] [facility] [address] [id number] [place] [address] 30 Jul, 2013 [facility] [place] [facility] [address] [id number] [place] [address] 30 Sep, 2013 [facility] [place] [facility] [address] [id number] [place] [address] 30 Sep, 2013 [facility] [place] [facility] [address] [id number] [place] [address] 30 Sep, 2013 [facility] [place] [facility] [address] [id number] [place] [address] 25 Sep, 2013 [facility] [place] [facility] [address] [id number] [place] [address] 25 Sep, 2013 [facility] [place] [facility] [address] [id number] [place] [address] Jul, [facility] [place] [facility] [address] [id number] [place] [address] Jul, [facility] [place] [facility] [address] [id number] [place] [address] Jul, [facility] [place] [facility] [address] [id number] [place] [address] Jul, [facility] [place] [facility] [address] [id number] [place] [address] Jun, [facility] [place] [facility] [address] [id number] [place] [address] Jun, [facility] [facility] [address] [id number] [place] [address] Jun, [facility] [place] [facility] [address] [id number] [place] [address] Jun, [facility] [place] [facility] [address] [id number] [place] [address] Jun, [facility] [place] [facility] [address] [id number] [place] [address] 7121 Jun, [facility] [place] [facility] [address] [id number] [place] [address] 6262 Jun, [facility] [place] [facility] [address] [id number] [place] [address]- 1305 Jun, [facility] [place] [facility] [address] [id number] [place] [address]- 7990 Jun, [facility] [place] [facility] [address] [id number] [place] [address]- 5490 Jun, [facility] [place] [address] [id number] [place] [address]- 0496 Jun, [facility] [place] [facility] [address] [id number] [place] [address]- 8483 Jun, [facility] [place] [facility] [address] [id number] [place] [address] 3003 Jun, [facility] [place] [address] [id number] [place] [address]- 1366 Jun, [facility] [place] [facility] [address] [id number] [place] [address]- 7014 Jun, [facility] [place] [facility] [address] [id number] [place] [address]- 8515 Jun, [facility] [place] [address] [id number] [place] [address]- 7615 Jun, [facility] [place] [address] [id number] [place] [address]- 3393 Jun, [facility] [place] [address] [id number] [place] [address]- 6240 Jun, [facility] [place] [address] [id number] [place] [address]- 3119 Jun, [facility] [place] [facility] [address] [id number] [place] [address]- 1285 Jun, [facility] [place] [facility] [address] [id number] [place] [address]- 1515 Jun, [facility] [place] [address] [id number] [place] [address]- 7304 May, [facility] [place] [address] [id number] [place] [address]- 7564 May, [facility] [place] [facility] [address] [id number] [place] [address]- 3038 May, [facility] [place] [address] [id number] [place] [address]- 3150 May, [facility] [place] [address] [id number] [place] [address]- 4894 May, [facility] [place] [facility] [address] [id number] [place] [address]- 0148 May, [facility] [address] [id number] [place] [address]- [address] May, 2013 [facility] [address] [id number] [place] [address]- 3616 May, 2013 [facility] [address] [id number] [facility] [place] [address]336 May, 2013 [facility] [address] [id number] [place] [address]- 6052 May, 2013 [facility] [place] [facility] [address] [id number] [place] [address]- 4[address] May, 2013 [facility] [facility] [address] [id number] [place] [address]- 5178 May, [facility] [place] [facility] [address] [id number] [place] [address]- 9313 May, [facility] [address] [id number] [place] [address]- 5258 Apr, [facility] [address] [id number] [place] [address]- 5560 Apr, [facility] [address] [id number] [place] [address]- 0883 Apr, [facility] [address] [id number] [place] [address]- 4887 Apr, [facility] [address] [id number] [place] [address]- 5100 Apr, [facility] [address] [id number] [place] [address]- 2822 Apr, [facility] [address] [id number] [place] [address]- 2181 Apr, [facility] [address] [id number] [place] [address]- 6594 Apr, [facility] [address] [id number] [place] [address] 7430 Apr, [facility] [address] [id number] [place] [address]- 4055 March, [facility] [address] [id number] [place] [address]- 6767 March, [facility] [address] [id number] [place] [address]- 0093 March, [facility] [address] [id number] [place] [address]- 6553 March, [facility] [address] [id number] [place] [address]- 8859 March, [facility] [address] [id number] [place] [address]- 7098 March, [facility] [address] [id number] [place] [address]- 7794 March, [facility] [address] [id number] [place] [address]- 3441 March, [facility] [address] [id number] [place] [address]- 6262 March, [facility] [address] [id number] [place] [address]- 1424 March, [facility] [address] [id number] [place] [address]- 9631 March, [facility] [address] [id number] [place] [address]- 7359 March, [facility] [address] [id number] [place] [address]- 1897 March, [facility] [address] [id number] [place] [address]- 4113 March, [facility] [address] [id number] [place] [address]- 9789 March, [facility] [address] [id number] [place] [address]- 7274 March, [facility] [address] [id number] [place] [address]- 6849 March, [facility] [address] [id number] [place] [address]- 4793 March, [facility] [address] [id number] [place] [address]- 9886 March, [facility] [address] [id number] [place] [address]- 1986 March, [facility] [address] [id number] [place] [address]- 7076 Feb, [facility] [address] [id number] [place] [address]- 8321 Feb, [facility] [address] [id number] [place] [address]- 8862 Feb, [facility] [address] [id number] [place] [address]- 2693 Feb, [facility] [address] [id number] [place] [address]- 2956 Feb, [facility] [address] [id number] [place] [address]- 9740 Feb, [facility] [address] [id number] [place] [address]- 5170 Feb, [facility] [address] [id number] [place] [address]- 5518 Feb, [facility] [address] [id number] [place] [address]- 9005 Jan, [facility] [address] [id number] [place] [address]- 2441 Jan, [facility] [address] [id number] [place] [address]- 5577 Jan, [facility] [address] [id number] [place] [address]- 1636 Jan, [facility] [address] [id number] [place] [address]- 6276 Jan, [facility] [address] [id number] [place] [address]- 1726 Jan, [facility] [address] [id number] [place] [address]- 0587 Jan, [facility] [address] [id number] [place] [address]- 6755 Jan, [facility] [address] [id number] [place] [address]- 7546 Jan, [facility] [address] [id number] [place] [address]- 2540 Jan, [facility] [address] [id number] [place] [address]- 8784 Dec, [facility] [address] [id number] [place] [address]- 0506 Dec, [facility] [address] [id number] [place] [address]- 6010 Dec, [facility] [address] [id number] [place] [address]- 3617 Dec, [facility] [address] [id number] [place] [address]- 9665 2013 [facility] [address] [id number] [place] [address]- 5333 Dec, [facility] [address] [id number] [place] [address]- 1340 Dec, [facility] [address] [id number] [place] [address]- 2832 Dec, [facility] [address] [id number] [place] [address]- 4739 29 Nov, 2013 [facility] [address] [id number] [place] [address]- 1538 Nov, [facility] [address] [id number] [place] [address]- 8852 Nov, [facility] [address] [id number] [place] [address]- 4738 Nov, [facility] [address] [id number] [place] [address]- 4030 Nov, [facility] [address] [id number] [place] [address]- 8009 Nov, [facility] [address] [id number] [place] [address]- 2310 Nov, [facility] [address] [id number] [place] [address]- 7307 Nov, [facility] [address] [id number] [place] [address]- 2190 Nov, [facility] [address] [id number] [place] [address]- 7642 Nov, [facility] [address] [id number] [place] [address]- 4598 Nov, [facility] [address] [id number] [place] [address]- 4071 Nov, [facility] [address] [id number] [place] [address]- 5713 Nov, [facility] [address] [id number] [place] [address]- 4690 Oct, [facility] [address] [id number] [place] [address]- 0785 Oct, [facility] [address] [id number] [place] [address]- 3155 Oct, [facility] [address] [id number] [place] [address]- 9572 Oct, [facility] [address] [id number] [place] [address]- 9020 Oct, [facility] [address] [id number] [place] [address]- 0232 Oct, [facility] [address] [id number] [place] [address]- 2738 Oct, [facility] [address] [id number] [place] [address]- 6231 Oct, [facility] [address] [id number] [place] [address]- 0559 Oct, [facility] [address] [id number] [place] [address]- 2186 Oct, [facility] [address] [id number] [place] [address]- 3802 Oct, [facility] [address] [id number] [place] [address]- 6420 Oct, [facility] [address] [id number] [place] [address]- 5727 Oct, [facility] [address] [id number] [place] [address]- 9591 Oct, [facility] [address] [id number] [place] [address]- 8932 Sep, [facility] [address] [id number] [place] [address]- 1401 Sep, [facility] [address] [id number] [place] [address]- 8359 Sep, [facility] [address] [id number] [place] [address]- 2130 05 Sep, 2013 [facility] [address] [id number] [place] [address]- 6263 Sep, [facility] [address] [id number] [place] [address]- 5324 Sep, [facility] [address] [id number] [place] [address]338 Sep, [facility] [address] [id number] [place] [address]- 2378 Sep, [facility] [address] [id number], [place] [address]- 7293 Sep, [facility] [address] [id number] [place] [address]- 8995 Sep, [facility] [address] [id number] [place] [address]- 3266 Aug, [facility] [address] [id number], [place] [address]- 3737 Aug, [facility] [address] [id number], [place] [address]- 1531 Aug, [facility] [address] [id number], [place] [address]- 3823 Aug, [facility] [address] [id number], [place] [address]- 2955 Aug, [facility] [address] [id number], [place] [address]- 3849 Aug, [facility] [address] [id number], [place] [address]- 5194 Aug, [facility] [address] [id number], [place] [address]- 1536 Aug, [facility] [address] [id number], [place] [address]- 7491 Aug, [facility] [address] [id number], [place] [address]- 4581 Aug, [facility] [address] [id number] [place] [address]- 3696 18 Aug, 2012 [facility] [address] [id number] [place] [address]- 4879 18 Aug, 2013 [facility] [address] [id number] [place] [address]- 8021 18 Aug, 2013 [facility] [address] [id number] [place] [address]- 1799 18 Aug, 2013 [facility] [address] [id number] [place] [address]- 9859 17 Aug, 2013 [facility] [address] [id number] [place] [address]- 6839 14 Aug, 2013 [facility] [address] [id number] [place] [address]- 7639 14 Aug, 2013 [facility] [address] [id number] [place] [address]- 1275 01 Aug, 2013 [facility] [address] [id number] [place] [address]- 3445 20 Jul, 2013 [facility] [address] [id number] [place] [address]- 0190 19 Jul, 2013 [facility] [address] [id number] [place] [address]- 7991 18 Jul, 2013 [facility] [facility] [address] [id number] [place] [address]- 2811 11 Jul, 2013 [facility] [place] [facility] [address] [id number] [place] [address]- 8775 11 Jul, 2013 [facility] [place] [facility] [address] [id number] [place] [address]- 1506 Jun, [facility] [place] [facility] [address] [id number] [place] [address]- 1703 Jun, [facility] [place] [facility] [address] [id number] [place] [address]- 4132 Jun, [facility] [place] [facility] [address] [id number] [place] [address]- 9961 Jun, [facility] [place] [facility] [address] [id number] [place] [address]- 9306 Jun, [facility] [place] [facility] [address] [id number] [place] [address]- 7385 Jun, [facility] [place] [facility] [address] [id number] [place] [address]- 0018 Jun, [facility] [place] [facility] [address] [id number] [place] [address]- 2139 Jun, [facility] [place] [facility] [address] [id number] [place] [address]- 5293 Jun, [facility] [place] [facility] [address] [id number] [place] [address]- 1376 Jun, [facility] [place] [facility] [address] [id number] [place] [address]- 5402 May, [facility] [place] [facility] [address] [id number] [place] [address]- 2212 May, [facility] [place] [facility] [address] [id number] [place] [address]- 2720 May, [facility] [place] [facility] [address] [id number] [place] [address]- 6499 May, [facility] [place] [facility] [address] [id number] [place] [address]- 2648 May, [facility] [place] [facility] [address] [id number] [place] [address]- 4156 May, [facility] [place] [facility] [address] [id number] [place] [address]- 0034 May, [facility] [place] [facility] [address] [id number] [place] [address]- 6078 May, [facility] [place] [facility] [address] [id number], [place] [address]- 3018 May, [facility] [address] [id number] [place] [address]- 9451 Apr, [facility] [place] [facility] [address] [id number] [place] [address]- 4689 Apr, [facility] [address] [id number] [place] [address]- 4211 Apr, [facility] [address] [id number] [place] [address]- 3246 Apr, [facility] [address] [id number] [place] [address]- 3429 Apr, [facility] [address] [id number] [place] [address]- 1255 Apr, [facility] [address] [facility] [id number] [place] [address]- 4789 Apr, [facility] [address] [id number] [place] [address]- 8087 March, [facility] [address] [id number] [place] [address]- 6709 Feb, [facility] [address] [id number] [place] [address]- 8298 Feb, [facility] [address] [id number] [place] [address]- 4526 Feb, [facility] [place] [facility] [address] [id number], [place] [address]- 2947 28 Jan, 2013 [facility] [place] [facility] [address] [id number] [place] [address]- 6333 21 Jan, 2013 [facility] [place] [facility] [address] [id number] [place] [address]- 5578 19 Jan, 2013 [facility] [place] [facility] [address] [id number] [place] [address]- 3959 14 Jan, 2013 [facility] [place] [facility] [address] [id number] [place] [address]- 1954 12 Jan, 2013 [facility] [place] [facility] [address] [id number] [place] [address]- 2114 08 Jan, 2013 [facility] [place] [facility] [address] [id number] [place] [address]- 2437 07 Jan, 2013 [facility] [place] [facility] [address] [id number] [place] [address]- 9586 04 Jan, 2013 [facility] [place] [facility] [address] [id number] [place] [address]- 8034 28 Dec, 2012 [facility] [place] [facility] [address] [id number] [place] [address]- 3746 25 Dec, 2012 [facility] [place] [facility] [address] [id number] [place] [address]- 1438 13 Dec, 2012 [facility] [place] [facility] [address] [id number] [place] [address]- 0270 Dec, [facility] [place] [facility] [address] [id number] [place] [address]- 4589 07 Dec, 2012 [facility] [place] [facility] [address] [facility] [id number] [place] [address]- 4173 06 Dec, 2012 [facility] [place] [facility] [address] [facility] [id number] [place] [address]- 0180 05 Dec, 2012 [facility] [place] [facility] [address] [id number] [place] [address]- 4084 Nov, [facility] [place] [facility] [address] [id number] [place] [address]- 0745 24 Nov, 2012 [facility] [place] [facility] [address] [id number] [place] [address]- 7401 18 Nov, 2012 [facility] [place] [facility] [address] [id number] [place] [address]- 6[address] 15 Nov, 2012 [facility] [place] [facility] [address] [id number] [place] [address] Nov, [facility] [address] [id number] [place] [address] Nov, [facility] [place] [facility] [address] [id number] [place] [address] Nov, [facility] [address] [facility] [id number] [place] [address] Oct, [facility] [place] [facility] [address] [id number] [place] [address] Oct, [facility] [address] [id number] [place] [address] Oct, [facility] [place] [facility] [address] [id number] [place] [address] Oct, [facility] [address] [id number] [place] [address] Oct, [facility] [place] [facility] [address] [id number] [place] [address] Oct, [facility] [address] [facility] [id number] [place] [address]- [address] Oct, [facility] [place] [facility] [address] [facility] [id number] [place] [address] Oct, [facility] [place] [facility] [address] [facility] [id number] [place] [address] Oct, [facility] [place] [facility] [address] [id number] [place] [address] Oct, [facility] [place] [facility] [address] [id number] [place] [address] Oct, [facility] [place] [facility] [address] [id number] [place] [address] Oct, [facility] [place] [facility] [address] [facility] [id number] [place] [address] Sep, [facility] [place] [facility] [address] [id number] [place] [address]- [address] Sep, [facility] [place] [facility] [address] [id number] [place] [address] Sep, [facility] [place] [facility] [address] [id number] [place] [address]- 15[address] Sep, [facility] [place] [facility] [address] [id number] [place] [address]- [address] Sep, [facility] [place] [facility] [address] [id number] [place] [address]57 Sep, [facility] [place] [facility] [address] [id number] [place] [address] Sep, [facility] [place] [facility] [address] [id number] [place] [address]- 9585 Sep, [facility] [place] [facility] [address] [id number] [place] [address]- [address] Sep, [facility] [place] [facility] [address] [id number] [place] [address] 299[address] Sep, [facility] [place] [facility] [address] [id number] [place] [address] Sep, [facility] [place] [facility] [address] [facility] [id number] [place] [address]- 4065 Aug, [facility] [place] [facility] [address] [id number] [place] [address] 37[address] Aug, [facility] [place] [facility] [address] [id number] [place] [address] 0410 Aug, [facility] [place] [facility] [address] [id number] [place] [address] 2073 Aug, [facility] [place] [facility] [address] [id number] [place] [address] Aug, [facility] [place] [facility] [address] [id number] [place] [address]- 7027 Aug, [facility] [place] [facility] [address] [id number] [place] [address] 9467 Aug, [facility] [place] [facility] [address] [id number] [place] [address]85 Aug, [facility] [place] [facility] [address] [id number] [place] [address]- [address]85 Aug, [facility] [place] [facility] [address] [id number] [place] [address] 89[address] Aug, [facility] [place] [facility] [address] [id number] [place] [address] Jul, [facility] [place] [facility] [address] [id number] [place] [address] Jul, [facility] [place] [facility] [address] [id number] [place] [address]270 Jul, [facility] [place] [facility] [address] [id number] [place] [address]- [address] Jul, [facility] [place] [facility] [address] [id number] [place] [address] Jun, [facility] [place] [facility] [address] [id number] [place] [address]- [address] Jun, [facility] [place] [facility] [address] [id number] [place] [address] Jun, [facility] [place] [facility] [address] [id number], [place] [address] Jun, [facility] [place] [facility] [address] [id number] [place] [address]- 78[address] Jun, [facility] [place] [facility] [address] [id number] [place] [address]- 268[address] Jun, [facility] [place] [facility] [address] [id number] [place] [address]- [address] Jun, [facility] [place] [facility] [address] [id number] [place] [address] 1983 24 May, 2012 [facility] [place] [facility] [address] [id number] [place] [address]- [address] May, [facility] [place] [facility] [address] [id number] [place] [address]- [address] May, [facility] [place] [facility] [address] [id number] [place] [address]- [address] May, [facility] [place] [facility] [address] [id number] [place] [address] May, [facility] [place] [facility] [address] [id number] [place] [address]- 6[address] Apr, [facility] [place] [facility] [address] [id number] [place] [address] 4082 Apr, [facility] [place] [facility] [address] [id number] [place] [address]- 9511 Apr, [facility] [place] [facility] [address] [id number] [place] [address]- [address] Apr, [facility] [place] [facility] [address] [id number] [place] [address]- 2275 Apr, [facility] [place] [facility] [address] [id number] [place] [address] 5702 March, [facility] [place] [facility] [address] [id number] [place] [address]- 4974 March, [facility] [place] [facility] [address] [id number] [place] [address]- 6283 March, [facility] [place] [facility] [address] [id number] [place] [address] March, [facility] [place] [facility] [address] [id number] [place] [address]- [address] March, [facility] [place] [facility] [address] [id number] [place] [address]- 4875 March, [facility] [place] [facility] [address] [id number] [place] [address]- [address] March, [facility] [address] [id number] [place] [address]- 4[address] March, [facility] [place] [facility] [address] [id number] [place] [address]- [address] March, [facility] [address] [id number] [place] [address]- 365[address] March, [facility] [address] [id number] [place] [address] Feb, [facility] [place] [facility] [address] [id number] [place] [address] Feb, [facility] [address] [id number] [place] [address] Feb, [facility] [address] [id number] [place] [address] Feb, [facility] [address] [id number] [place] [address] Feb, [facility] [place] [facility] [address] [id number] [place] [address] Feb, [facility] [place] [facility] [address] [id number] [place] [address] Feb, [facility] [place] [facility] [address] [id number] [place] [address] Feb, [facility] [place] [facility] [address] [id number] [place] [address] Feb, [facility] [place] [facility] [address] [id number] [place] [address] Jan, [facility] [place] [facility] [address] [id number] [place] [address] Jan, [facility] [place] [facility] [address] [id number] [place] [address] Jan, [facility] [address] [id number] [place] [address] Jan, [facility] [address] [id number] [place] [address] Dec, [facility] [address] [id number] [place] [address] Dec, [facility] [address] [id number] [place] [address] Nov, [facility] [address] [id number] [place] [address] Nov, [facility] [address] [id number] [place] [address] Nov, [facility] [address] [id number] [place] [address] Nov, [facility] [address] [id number] [place] [address] Nov, [facility] [address] [id number] [place] [address] Oct, [facility] [address] [id number] [place] [address] Oct, [facility] [address] [id number] [place] [address] Oct, [facility] [place] [facility] [address] [id number] [place] [address] Oct, [facility] [place] [facility] [address] [id number] [place] [address] Oct, [facility] [place] [facility] [address] [id number] [place] [address] Oct, [facility] [place] [facility] [address] [id number] [place] [address] Oct, [facility] [place] [facility] [address] [facility] [id number] [place] [id number] Oct, [facility] [address] [facility] [id number], [place] [address] Sep, IMMUNIZATIONS No Known Immunizations SOCIAL HISTORY Never Assessed REASON FOR VISIT routine visit PLAN OF CARE Activity Details Follow Up prn Reason: VITAL SIGNS MEDICATIONS Medication Instructions Dosage Frequency Start Date End Date Duration Status Escitalopram Oxalate 20 MG Orally Once a day 1 tablet 24h Nov, 30 day(s) Unknown MetFORMIN HCl ER 500 MG Orally Once a day 1 tablet with evening meal 24h Unknown MiraLax 17 gm/dose Orally Once a day 17 grams mixed in 8 oz of water or juice 24h Apr, Unknown Tylenol 325 MG Orally 3 times a day to be given with Tramadol 1 tablet Feb, Unknown Gabapentin 400 MG Orally Three times a day 1 capsule 8h Unknown Atorvastatin Calcium 40 MG Orally Once a day 1 tablet 24h Oct, 30 day(s) Unknown Estradiol 0.1 MG/GM Vaginal 3 times per week 1 application to skin Unknown Furosemide 20 mg Orally every other day 1 tablet Unknown Ondansetron HCl 4 MG Orally every 6 hours as needed NAUSEA/VOMITING 1 tablets Unknown Metoprolol Tartrate 50 MG Orally Twice a day 1 tablet with food 12h Unknown Tamsulosin HCl 0.4 MG Orally Once a day 1 capsule 24h Unknown BuPROPion HCl ER (XL) 300 MG Orally Once a day at HS 1 tablet in the morning Unknown Tramadol HCl 50 mg Orally 3 times a day 1 tablet as needed 8h Dec, 28 days Unknown Albuterol Sulfate HFA 108 (90 Base) MCG/ACT Inhalation every 6 hrs 2 puffs as needed 6h Nov, Unknown Oxybutynin Chloride ER 10 MG 1 TABLET BY MOUTH EVERY DAY FOR UNINHIBITED NEUROPATHC BLADDER, NEC Unknown Potassium Chloride Radha ER 20 meq Orally q48H TAKES WITH FUROSEMIDE 2 tablet with food Unknown RESULTS No Results PROCEDURES Procedure Date Ordered Result Body Site Minor complication (15 mins) April 29, 2018 INSTRUCTIONS MEDICATIONS ADMINISTERED No Known Medications MEDICAL (GENERAL) HISTORY Type Description Date 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
--- OUTSIDE RECORDS SUMMARY | 2018-09-04 11:37 | XMS REPORT ---
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 Name Role Phone SHAHNAZ MARQUEZ Unavailable PROBLEMS Type Condition ICD9-CM Code XSH40-NH Code Onset Dates Condition Status SNOMED Code Problem Type 2 diabetes mellitus without complication, without long-term current use of insulin E11.9 Active 136244893 Problem Reactive depression F32.9 Active 23467399 Problem Ventral hernia without obstruction or gangrene K43.9 Active 024996728 Problem 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 Active 56660783 Problem Paroxysmal atrial fibrillation I48.0 Active 743731069 Problem Anxiety F41.9 Active 32887996 Problem Pharyngeal dysphagia R13.13 Active 49566367178999 Problem Insomnia G47.00 Active 029206528 Problem Peripheral vascular disease I73.9 Active 481567377 Problem Coronary artery disease I25.10 Active 06638128 Problem Hyperlipidemia E78.5 Active 16150588 Problem Other chronic pain G89.29 Active 74880780 Problem Hypertension I10 Active 04799967 Problem Low back pain M54.5 Active 506376245 ALLERGIES No Information ENCOUNTERS Encounter Location Date Diagnosis [employer] [address] [facility] [place] [id number] Jun, 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 [facility] [address] [id number] [address] Jun, Other chronic pain G89.29 [facility] [address] [id number] [address] Jun, [facility] [employer] [address] [place] [id number] May, Anxiety F41.9 ; Type 2 diabetes mellitus without complication, without long-term current use of insulin E11.9 ; Hypertension I10 ; Low back pain M54.5 ; Paroxysmal atrial fibrillation I48.0 and 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 [facility] [address] [id number], [place] [address] May, Other chronic pain G89.29 [employer] [address] [place] [id number] May, Low back pain M54.5 [facility] [address] [id number] [place] [address] 78441- 6156 May, [facility] [address] [id number] [place] [address] 85110- 9978 Apr, Other chronic pain G89.29 [facility] [id number] [place] [address] 15619- 5507 Apr, [facility] [address] [facility] [id number] [place] [address] 69753- 4680 Apr, [facility] [employer] [address] [place] [id number] Apr, Closed compression fracture of L3 lumbar vertebra with routine healing, subsequent encounter S32.030D [employer] [address] [place] [id number] Apr, Low back pain M54.5 [employer] [address] [place] [id number] Apr, Coccydynia M53.3 [facility] [address] [facility] [id number] [address] March, [facility] [address] [id number], [place] [address] March, Other chronic pain G89.29 [facility] [address] [id number], [place] [address] March, [facility] [address] [facility] [id number], [place] [address] March, [facility] [address] [facility] [id number] [address] 7[address] Feb, [facility] [address] [id number] [address] Feb, Other chronic pain G89.29 [facility] [employer] [address] [place] [id number] Feb, Other chronic pain G89.29 and Anxiety F41.9 [facility] [address] [address] Feb, [facility] [address] [address] 65[address] Jan, [facility] [id number] [place] [address] 48836- 5414 Jan, [facility] [id number] [place] [address] 57832- 8396 Jan, [facility] [id number] [place] [address] 41740- 2801 Jan, [facility] [address]00565100[place] [address] Dec, [employer] [address] [place] [id number] Dec, Peripheral vascular disease I73.9 ; 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 ; Other chronic pain G89.29 ; Anxiety F41.9 ; Reactive depression F32.9 ; Insomnia G47.00 and Type 2 diabetes mellitus without complication, without long-term current use of insulin E11.9 [facility] [address] [id number] [place] [address] Nov [facility] [address] [id number] [id number] Nov, Anxiety F41.9 [facility] [address] [id number] [address] Nov, [facility] [id number][place] [address] Nov, Anxiety F41.9 [employer] [address] [place] [id number] Nov, Status post surgery Z98.890 ; Confused R41.0 ; Anxiety F41.9 and Other chronic pain G89.29 [facility] [id number] [address] Nov, Other chronic pain G89.29 [facility] [address]00565100[place] [address] Oct, [facility] [id number] [place] [id number] Oct, Other chronic pain G89.29 [facility] [id number] [place] [address] 68532- 7486 Oct, Anxiety F41.9 [facility] [id number] [place] [address] [id number] Sep, Other chronic pain G89.29 [facility] [id number] [place] [id number] Sep, [employer] [address] [place] [id number] Aug, Dysuria R30.0 and Anxiety F41.9 [facility] [address]00565100[place] [address] Aug, [facility] [id number], [place] [id number] Aug, Other chronic pain G89.29 [facility] [address] [place] [address] 83377- 1666 Jul, Other chronic pain G89.29 [facility] [id number][place] [address] Jun, [facility] [id number] [place] [address] [id number] Jun, Other chronic pain G89.29 [facility] [address]00565100[place] [address] Jun, [facility] [address]00565100[place] [address] 270[address] May, Other chronic pain G89.29 [facility] [address] [place] [address] 68773- 7658 Apr, Other chronic pain G89.29 Via [facility] [employer] [address] [place] [id number] Apr, Reactive depression F32.9 and Pharyngeal dysphagia R13.13 [facility] [address] [place] [address] 36159- 1865 Apr, Urinary tract infection without hematuria, site unspecified N39.0 [facility] [id number] [place] [address] 41015- 3404 March, Other chronic pain G89.29 [facility] [id number] [place] [address] 23902- 8982 Feb, Other chronic pain G89.29 [facility] [id number] [place] [address] 63550- 3831 Feb, [facility] [id number] [place] [address] [id number] Feb, [facility] [employer] [address] [place] [id number] Feb, Dysuria R30.0 and Ventral hernia without obstruction or gangrene K43.9 [facility] [address] [place] [address] 93019- 8587 Jan, Other chronic pain G89.29 [facility] [id number] [place] [address] [id number] Dec, Other chronic pain G89.29 [facility] [address] [place] [address] [id number]- 6981 Nov, Other chronic pain G89.29 [facility] [employer] [address] [place] [id number] Nov, Lymphadenitis I88.9 [facility] [address] [facility] [id number] [place] [address] 59209- 3782 Nov, Other chronic pain G89.29 [facility] [id number] [place] [address] 38732- 3849 Nov, [facility] [place] [facility] [id number] [place] [address] [id number] Nov, Other chronic pain G89.29 Via [facility] [address] [place] [id number] Oct, Low back pain M54.5 ; Hypertension I10 and Type 2 diabetes mellitus without complication, without long-term current use of insulin E11.9 [facility] [id number] [place] [address] 57174- 5841 Oct, [facility] [id number] [place] [address] 53173- 0741 Oct, [facility] [id number] [place] [address] 61121- 2402 Oct, [facility] [address] [place] [address] 10250- 9561 Oct, [facility] [id number] [place] [address] 71008- 2868 Sep, [facility] [id number] [place] [address] 87093- 6859 Sep, [facility] [id number] [place] [address] 51955- 6697 Aug, Other chronic pain G89.29 [facility] [address] [place] [address] 41981- 0389 Jul, [facility] [id number] [place] [address] 92331- 1944 Jul, [facility] [address] [place] [address] 634335- 2899 Jul, [facility] [id number] [place] [address] 95246- 6991 Jun, [facility] [address] [address]- 7262 Jun, [facility] [address] [place] [id number] Jun, Low back pain M54.5 ; Other chronic pain G89.29 and Coronary artery disease I25.10 [facility] [id number] [place] [address] 95611- 8331 Jun, [facility] [id number] [place] [address] 96466- 9231 May, [facility] [id number] [place] [address] 96128- 2636 May, [facility] [id number] [place] [address] 45272- 6508 May, Other chronic pain G89.29 [facility] [id number] [place] [address] 26003- 6112 May, [facility] [address] [place] [address] 43559- 6219 Apr, [facility] [address] [place] [address] 36836- 8149 Apr, Acute cystitis without hematuria N30.00 [facility] [address] [place] [address] 08418- 3844 Apr, Acute cystitis without hematuria N30.00 ; Coronary artery disease I25.10 ; Low back pain M54.5 and Other chronic pain G89.29 [facility] [address], [place] [address]- 9906 Apr, Other chronic pain G89.29 [facility] [address] [address]- 3381 March, Other chronic pain G89.29 [facility] [id number] [place] [address] 82814- 6727 18 Feb, 2016 [facility] [address] [address]- 1449 15 Feb, 2016 Arthritis M19.90 [facility] [address] [place] [address] 97333- 8826 13 Feb, 2016 [facility] [id number] [place] [address] 75373- 4402 30 Jan, 2016 [facility] [id number] [place] [address] 71157- 6320 Jan, [facility] [id number] [place] [address] 97028- 3122 Jan, Other chronic pain G89.29 [facility] [id number] [place] [address] 95886- 4893 Jan, Hypertension I10 ; Coronary artery disease I25.10 and Insomnia G47.00 [facility] [id number] [place] [address] 16855- 6727 Jan, [facility] [id number] [place] [address] 91697- 3314 Dec, Right hip pain M25.551 [facility] [id number] [place] [address] 36166- 6199 Dec, [facility] [id number] [place] [address] 56240- 7674 Dec, [facility] [id number] [place] [address] 53184- 2549 Dec, [facility] [id number] [place] [address] 90776- 7729 Dec, Other chronic pain G89.29 [facility] [address] [place] [address] 56408- 8399 Dec, [facility] [id number] [place] [address] 52362- 2502 Nov, [facility] [address] [place] [address] 51274- 8913 Nov, Other chronic pain G89.29 [facility] [id number] [place] [address] 66583- 1574 Nov, Right hip pain M25.551 and Coronary artery disease I25.10 [facility] [address] 84662- 3952 Nov, Other chronic pain G89.29 [facility] [id number] [place] [address] 09073- 2549 Oct, [facility] [address] 97267- 8161 Oct, [facility] [id number] [place] [address] 95963- 0557 Sep, [facility] [id number] [place] [address] 68756- 2922 Sep, [facility] [id number] [place] [address] 00774- 2530 Aug, [facility] [id number] [place] [address] 94031- 7762 Aug, Hypertension I10 ; Coronary artery disease I25.10 and Arthritis M19.90 [facility] [id number] [place] [address] 45841- 8613 Jun, [facility] [id number] [place] [address] 10849- 8866 Jun, Essential hypertension, benign 401.1 ; Other chronic pain 338.29 and Chronic airway obstruction, not elsewhere classified 496 [facility] [id number] [place] [address] 03631- 2005 Jun, [facility] [id number] [place] [address] 93066- 9255 Jun, [facility] [address] [id number] [place] [address]- 3824 Jun, [facility] [address] [id number] [place] [address]- 9949 May, [facility] [address] [id number] [place] [address]- 2169 May, [facility] [address] [id number] [place] [address]- 2987 Apr, [facility] [address] [id number] [place] [address]- 1173 Apr, [facility] [address] [id number] [place] [address]- 9773 Apr, [facility] [address] [id number] [place] [address]- 3671 March, [facility] [address] [id number] [place] [address]- 2464 March, [facility] [address] [id number] [place] [address]- 5598 March, [facility] [address] [id number] [place] [address]- 5333 March, [facility] [address] [facility] [id number] [place] [address]- 0384 March, Sialadenitis 527.2 [facility] [address] [id number] [place] [address]- 5701 Feb, [facility] [place] [facility] [address] [id number] [place] [address]- 6332 Feb, [facility] [address] [id number] [place] [address]- 0455 Feb, [facility] [address] [id number] [place] 8307 Feb, [facility] [address] [id number], [place] [address]- 1666 Feb, [facility] [place] [facility] [address] [id number] [place] [address]- 6180 Jan, [facility] [place] [facility] [address] [id number] [place] [address]- 9166 Jan, [facility] [place] [facility] [address] [facility] [id number] [place] [address]- 5352 Jan, [facility] [place] [facility] [address] [id number] [place] [address]- 6050 Jan, [facility] [place] [facility] [address] [id number] [place] [address]- 3868 Jan, [facility] [place] [facility] [address] [facility] [id number] [place] [address]- 0256 Jan, [facility] [place] [facility] [address] [id number] [place] [address]- 2479 Dec, [facility] [place] [facility] [address] [facility] [id number] [place] [address]- 5488 Dec, 2014 [facility] [place] [facility] [address] [facility] [id number] [place] [address]- 4159 Dec, 2014 [facility] [place] [facility] [address] [facility] [id number] [place] [address]- 9329 Dec, [facility] [place] [facility] [address] [facility] [id number] [place] [address]- 7508 Dec, 2014 [facility] [place] [facility] [address] [facility] [id number], [place] [address]- 8004 Dec, 2014 [facility] [place] [facility] [address] [id number], [place] [address]- 6597 Nov, [facility] [place] [facility] [address] [facility] [id number], [place] [address]- 7975 Nov, [facility] [place] [facility] [address] [facility] [id number], [place] [address]- 2128 Nov, [facility] [place] [facility] [address] [id number] [place] [address]- 8137 Nov, [facility] [address] [id number] [place] [address]- 1732 Nov, [facility] [place] [facility] [address] [id number] [place] [address]- 2394 Nov, [facility] [address] [id number] [place] [address]- 0697 Nov, [facility] [address] [id number] [place] [address]- 2185 Nov, [facility] [address] [id number] [place] [address]- 4565 Nov, [facility] [address] [id number] [place] [address]- 8756 Nov, [facility] [address] [id number] [place] [address]- 0265 Nov, [facility] [address] [id number] [place] [address]- 9896 Nov, [facility] [address] [id number] [place] [address]- 4805 Nov, [facility] [place] [facility] [address] [id number] [place] [address]- 7926 Nov, [facility] [place] [facility] [address] [id number] [place] [address]- 3957 Oct, [facility] [place] [facility] [address] [id number] [place] [address]- 5293 Oct, [facility] [place] [facility] [address] [id number] [place] [address]- 2814 Oct, [facility] [place] [facility] [address] [id number] [place] [address]- 9169 Oct, [facility] [place] [facility] [address] [id number] [place] [address]- 1929 18 Oct, 2014 [facility] [place] [facility] [address] [id number] [place] [address]- 3874 Oct, [facility] [place] [facility] [address] [id number] [place] [address]- 5881 Oct, [facility] [place] [facility] [address] [id number] [place] [address]- 0533 Oct, [facility] [place] [facility] [address] [id number] [place] [address]- 2018 Oct, [facility] [place] [facility] [address] [id number] [place] [address]- 3005 Sep, [facility] [place] [facility] [address] [id number] [place] [address]- 7383 Sep, [facility] [place] [facility] [address] [id number] [place] [address]- 2976 Sep, [facility] [place] [facility] [address] [id number] [place] [address]- 0342 Sep, [facility] [place] [facility] [address] [id number] [place] [address]- 0517 Sep, [facility] [place] [facility] [address] [id number] [place] [address]- 5342 Sep, [facility] [place] [facility] [address] [id number] [place] [address] Sep, [facility] [place] [facility] [address] [id number] [place] [address] Sep, [facility] [place] [facility] [address] [id number] [place] [address] Sep, [facility] [place] [facility] [address] [id number] [place] [address] Sep, [facility] [place] [facility] [address] [id number] [place] [address] Sep, [facility] [place] [facility] [address] [id number] [place] [address] Sep, [facility] [place] [facility] [address] [id number] [place] [address] 30 Aug, 2014 [facility] [place] [facility] [address] [id number] [place] [address] 30 Aug, 2014 [facility] [place] [facility] [address] [id number] [place] [address] 29 Aug, 2014 [facility] [place] [facility] [address] [id number] [place] [address] 29 Aug, 2014 [facility] [place] [facility] [address] [id number] [place] [address] Aug, [facility] [place] [facility] [address] [id number] [place] [address] Aug, [facility] [place] [facility] [address] [id number] [place] [address] Aug, [facility] [place] [facility] [address] [id number] [place] [address] 17 Aug, 2014 [facility] [place] [facility] [address] [id number] [place] [address] 30 Jul, 2013 [facility] [place] [facility] [address] [id number] [place] [address] 30 Sep, 2013 [facility] [place] [facility] [address] [id number] [place] [address] 30 Sep, 2013 [facility] [place] [facility] [address] [id number] [place] [address] 30 Sep, 2013 [facility] [place] [facility] [address] [id number] [place] [address]- [address] 25 Sep, 2013 [facility] [place] [facility] [address] [id number] [place] [address] 25 Sep, 2013 [facility] [place] [facility] [address] [id number] [place] [address] Jul, [facility] [place] [facility] [address] [id number] [place] [address] Jul, [facility] [place] [facility] [address] [id number] [place] [address] Jul, [facility] [place] [facility] [address] [id number] [place] [address] Jul, [facility] [place] [facility] [address] [id number] [place] [address] Jun, [facility] [place] [facility] [address] [id number] [place] [address] Jun, [facility] [place] [facility] [address] [id number] [place] [address] Jun, [facility] [place] [facility] [address] [id number] [place] [address] Jun, [facility] [place] [facility] [address] [id number] [place] [address] Jun, [facility] [place] [facility] [address] [id number] [place] [address] Jun, [facility] [place] [facility] [address] [id number] [place] [address] Jun, [facility] [place] [facility] [address] [id number] [place] [address] Jun, [facility] [place] [facility] [address] [id number] [place] [address] Jun, [facility] [place] [facility] [address] [id number] [place] [address] 5276 Jun, [facility] [place] [facility] [address] [id number] [place] [address] 4[address] Jun, [facility] [place] [facility] [address] [id number] [place] [address] 9337 Jun, [facility] [place] [facility] [address] [id number] [place] [address] 4012 Jun, [facility] [place] [facility] [address] [id number] [place] [address] 8129 Jun, [facility] [place] [facility] [address] [id number] [place] [address] 3159 Jun, [facility] [place] [facility] [address] [id number] [place] [address]- 5332 Jun, [facility] [place] [facility] [address] [id number] [place] [address]- 8294 Jun, [facility] [place] [facility] [address] [id number] [place] [address]- 4250 Jun, [facility] [place] [facility] [address] [id number] [place] [address]- 8712 Jun, [facility] [place] [facility] [address] [id number] [place] [address]- 9929 Jun, [facility] [place] [facility] [address] [id number] [place] [address]- 8172 Jun, [facility] [place] [facility] [address] [id number] [place] [address]- 3798 Jun, [facility] [place] [facility] [address] [id number] [place] [address]- 1749 May, [facility] [place] [facility] [address] [id number] [place] [address]- 8936 May, [facility] [place] [facility] [address] [id number] [place] [address]- 2848 May, [facility] [place] [facility] [address] [id number] [place] [address]- 2574 May, [facility] [place] [facility] [address] [id number] [place] [address]- 9755 May, [facility] [place] [facility] [address] [id number] [place] [address]- 9386 May, [facility] [place] [facility] [address] [id number] [place] [address] May, 2013 [facility] [place] [facility] [address] [id number] [place] [address]- 2867 May, 2013 [facility] [place] [facility] [address] [id number] [facility] [address]- 9286 May, 2013 [facility] [place] [facility] [address] [id number] [place] [address]- 9599 May, 2013 [facility] [place] [facility] [address] [id number] [place] [address]- 8907 May, 2013 [facility] [place] [facility] [address] [id number] [place] [address]- 2871 May, [facility] [place] [facility] [address] [id number] [place] [address]- 8334 May, [facility] [place] [facility] [address] [id number] [place] [address]- 8285 Apr, [facility] [place] [facility] [address] [id number] [place] [address]- 4769 Apr, [facility] [place] [facility] [address] [id number] [place] [address]- 0847 Apr, [facility] [place] [facility] [address] [id number] [place] [address]- 7088 Apr, [facility] [place] [facility] [address] [id number] [place] [address]- 7351 Apr, [facility] [place] [facility] [address] [id number] [place] [address]- 0847 Apr, [facility] [place] [facility] [address] [id number] [place] [address]- 7664 Apr, [facility] [place] [facility] [address] [id number] [place] [address]- 9391 Apr, [facility] [place] [facility] [address] [id number] [place] [address] 8786 Apr, [facility] [address] [id number] [place] [address]- 0149 March, [facility] [place] [facility] [address] [id number] [place] [address]- 3666 March, [facility] [place] [facility] [address] [id number] [place] [address]- 0063 March, [facility] [place] [facility] [address] [id number] [place] [address]- 2504 March, [facility] [place] [facility] [address] [id number] [place] [address]- 7948 March, [facility] [place] [facility] [address] [id number] [place] [address]- 1168 March, [facility] [place] [facility] [address] [id number] [place] [address]- 5568 March, [facility] [place] [facility] [address] [id number] [place] [address]- 1876 March, [facility] [place] [facility] [address] [id number] [place] [address]- 5404 March, [facility] [place] [facility] [address] [id number] [place] [address]- 5379 March, [facility] [place] [facility] [address] [id number] [place] [address]- 0098 March, [facility] [place] [facility] [address] [id number] [place] [address]- 0323 March, [facility] [place] [facility] [address] [id number] [place] [address]- 4883 March, [facility] [place] [facility] [address] [id number] [place] [address]- 0688 March, [facility] [place] [facility] [address] [id number] [place] [address]- 9998 March, [facility] [place] [facility] [address] [id number] [place] [address]- 4227 March, [facility] [place] [facility] [address] [id number] [place] [address]- 7343 March, [facility] [place] [facility] [address] [id number] [place] [address]- 7442 March, [facility] [place] [facility] [address] [id number] [place] [address]- 9040 March, [facility] [place] [facility] [address] [id number] [place] [address]- 5617 March, [facility] [place] [facility] [address] [id number] [place] [address]- 0067 Feb, [facility] [place] [facility] [address] [id number] [place] [address]- 3415 Feb, [facility] [place] [facility] [address] [id number] [place] [address]- 7419 Feb, [facility] [place] [facility] [address] [id number] [place] [address]- 6586 Feb, [facility] [place] [facility] [address] [id number] [place] [address]- 0143 Feb, [facility] [place] [facility] [address] [id number] [place] [address]- 9319 Feb, [facility] [place] [facility] [address] [id number] [place] [address]- 4047 Feb, [facility] [place] [facility] [address] [id number] [place] [address]- 9736 Feb, [facility] [place] [facility] [address] [id number] [place] [address]- 2830 Jan, [facility] [place] [facility] [address] [id number] [place] [address]- 4048 Jan, [facility] [place] [facility] [address] [id number] [place] [address]- 3596 Jan, [facility] [place] [facility] [address] [id number] [place] [address]- 0195 Jan, [facility] [place] [facility] [address] [id number] [place] [address]- 7869 Jan, [facility] [place] [facility] [address] [id number] [place] [address]- 6834 Jan, [facility] [place] [facility] [address] [id number] [place] [address]- 3613 Jan, [facility] [place] [facility] [address] [id number] [place] [address]- 2150 Jan, [facility] [place] [facility] [address] [id number] [place] [address]- 7609 Jan, [facility] [place] [facility] [address] [id number] [place] [address]- 5819 Jan, [facility] [place] [facility] [address] [id number] [place] [address]- 0115 Dec, [facility] [place] [facility] [address] [id number] [place] [address]- 6160 Dec, [facility] [place] [facility] [address] [id number] [place] [address]- 4013 Dec, [facility] [place] [facility] [address] [id number] [place] [address]- 0208 Dec, [facility] [place] [facility] [address] [id number] [place] [address]- 9449 2013 [facility] [place] [facility] [address] [id number] [place] [address]- 2269 Dec, [facility] [place] [facility] [address] [id number] [place] [address]- 5578 Dec, [facility] [place] [facility] [address] [id number] [place] [address]- 3136 Dec, [facility] [place] [facility] [address] [id number] [place] [address]- 4527 29 Nov, 2013 [facility] [place] [facility] [address] [id number] [place] [address]- 4877 Nov, [facility] [place] [facility] [address] [id number] [place] [address]- 3526 Nov, [facility] [place] [facility] [address] [id number] [place] [address]- 7677 Nov, [facility] [place] [facility] [address] [id number] [place] [address]- 7358 Nov, [facility] [place] [facility] [address] [id number] [place] [address]- 9515 Nov, [facility] [place] [facility] [address] [id number] [place] [address]- 8787 Nov, [facility] [place] [facility] [address] [id number] [place] [address]- 1943 Nov, [facility] [place] [facility] [address] [id number] [place] [address]- 9397 Nov, [facility] [place] [facility] [address] [id number] [place] [address]- 4894 Nov, [facility] [place] [facility] [address] [id number] [place] [address]- 5142 Nov, [facility] [place] [facility] [address] [id number] [place] [address]- 4673 Nov, [facility] [place] [facility] [address] [id number] [place] [address]- 4754 Nov, [facility] [place] [facility] [address] [id number] [place] [address]- 9740 Oct, [facility] [place] [facility] [address] [id number] [place] [address]- 4118 Oct, [facility] [place] [facility] [address] [id number] [place] [address]- 8124 Oct, [facility] [place] [facility] [address] [id number] [place] [address]- 8843 Oct, [facility] [address] [id number] [place] [address]- 0874 Oct, [facility] [address] [id number] [place] [address]- 5898 Oct, [facility] [address] [id number] [place] [address]- 5831 Oct, [facility] [address] [id number] [place] [address]- 8045 Oct, [facility] [address] [id number] [place] [address]- 7451 Oct, [facility] [address] [id number] [place] [address]- 4273 Oct, [facility] [address] [id number] [place] [address]- 0544 Oct, [facility] [address] [id number] [place] [address]- 1980 Oct, [facility] [address] [id number] [place] [address]- 0745 Oct, [facility] [address] [id number] [place] [address]- 8371 Oct, [facility] [address] [id number] [place] [address]- 2943 Sep, [facility] [place] [facility] [address] [id number] [place] [address]- 0734 Sep, [facility] [place] [facility] [address] [id number] [place] [address]- 6895 Sep, [facility] [place] [facility] [address] [id number] [place] [address]- 5469 05 Sep, 2013 [facility] [place] [facility] [address] [id number] [place] [address]- 5479 Sep, [facility] [place] [facility] [address] [id number] [place] [address]- 0168 Sep, [facility] [place] [facility] [address] [id number] [place] [address] Sep, [facility] [place] [facility] [address] [id number] [place] [address]- 8568 Sep, [facility] [place] [facility] [address] [id number], [place] [address]- 6490 Sep, [facility] [place] [facility] [address] [id number] [place] [address]- 5569 Sep, [facility] [place] [facility] [address] [id number] [place] [address]- 1352 Aug, [facility] [place] [facility] [address] [id number], [place] [address]- 0269 Aug, [facility] [place] [facility] [address] [id number], [place] [address]- 5952 Aug, [facility] [place] [facility] [address] [id number], [place] [address]- 4983 Aug, [facility] [place] [facility] [address] [id number], [place] [address]- 9061 Aug, [facility] [place] [facility] [address] [id number], [place] [address]- 6692 Aug, [facility] [place] [facility] [address] [id number], [place] [address]- 9442 Aug, [facility] [place] [facility] [address] [id number], [place] [address]- 0737 Aug, [facility] [place] [facility] [address] [id number], [place] [address]- 0107 Aug, [facility] [place] [facility] [address] [id number], [place] [address]- 2198 Aug, [facility] [place] [facility] [address] [id number] [place] [address]- 5937 18 Aug, 2012 [facility] [address] [id number] [place] [address]- 1746 18 Aug, 2013 [facility] [place] [facility] [address] [id number] [place] [address]- 8526 18 Aug, 2013 [facility] [address] [id number] [place] [address]- 3528 18 Aug, 2013 [facility] [place] [facility] [address] [id number] [place] [address]- 2198 17 Aug, 2013 [facility] [address] [id number] [place] [address]- 0476 14 Aug, 2013 [facility] [place] [facility] [address] [id number] [place] [address]- 8798 14 Aug, 2013 [facility] [place] [facility] [address] [id number] [place] [address]- 9977 01 Aug, 2013 [facility] [address] [id number] [place] [address]- 3673 20 Jul, 2013 [facility] [place] [facility] [address] [id number] [place] [address]- 4441 19 Jul, 2013 [facility] [address] [id number] [place] [address]- 3638 18 Jul, 2013 [facility] [place] [facility] [address] [id number] [place] [address]- 6741 11 Jul, 2013 [facility] [place] [facility] [address] [id number] [place] [address]- 4541 11 Jul, 2013 [facility] [place] [facility] [address] [id number] [place] [address]- 5538 Jun, [facility] [place] [facility] [address] [id number] [place] [address]- 1495 Jun, [facility] [place] [facility] [address] [id number] [place] [address]- 9992 Jun, [facility] [place] [facility] [address] [id number] [place] [address]- 5960 Jun, [facility] [place] [facility] [address] [id number] [place] [address]- 5270 Jun, [facility] [place] [facility] [address] [id number] [place] [address]- 2612 Jun, [facility] [place] [facility] [address] [id number] [place] [address]- 3590 Jun, [facility] [place] [facility] [address] [id number] [place] [address]- 0392 Jun, [facility] [place] [facility] [address] [id number] [place] [address]- 8732 Jun, [facility] [place] [facility] [address] [id number] [place] [address]- 6097 Jun, [facility] [place] [facility] [address] [id number] [place] [address]- 4809 May, [facility] [place] [facility] [address] [id number] [place] [address]- 6175 May, [facility] [place] [facility] [address] [id number] [place] [address]- 5523 May, [facility] [place] [facility] [address] [id number] [place] [address]- 6386 May, [facility] [place] [facility] [address] [id number] [place] [address]- 1785 May, [facility] [place] [facility] [address] [id number] [place] [address]- 5070 May, [facility] [place] [facility] [address] [id number] [place] [address]- 5494 May, [facility] [place] [facility] [address] [id number] [place] [address]- 3378 May, [facility] [place] [facility] [address] [id number], [place] [address]- 2223 May, [facility] [address] [id number] [place] [address]- 9026 Apr, [facility] [place] [facility] [address] [id number] [place] [address]- 4248 Apr, [facility] [address] [id number] [place] [address]- 2565 Apr, [facility] [address] [id number] [place] [address]- 2110 Apr, [facility] [address] [id number] [place] [address]- 9751 Apr, [facility] [address] [id number] [place] [address]- 2808 Apr, [facility] [address] [facility] [id number] [place] [address]- 3396 Apr, [facility] [address] [id number] [place] [address]- 9856 March, [facility] [address] [id number] [place] [address]- 1258 Feb, [facility] [address] [id number] [place] [address]- 6843 Feb, [facility] [address] [id number] [place] [address]- 5790 Feb, [facility] [place] [facility] [address] [id number], [place] [address]- 2515 28 Jan, 2013 [facility] [place] [facility] [address] [id number] [place] [address]- 5869 21 Jan, 2013 [facility] [place] [facility] [address] [id number] [place] [address]- 5911 19 Jan, 2013 [facility] [place] [facility] [address] [id number] [place] [address]- 6199 14 Jan, 2013 [facility] [place] [facility] [address] [id number] [place] [address]- 7116 12 Jan, 2013 [facility] [place] [facility] [address] [id number] [place] [address]- 2471 08 Jan, 2013 [facility] [place] [facility] [address] [id number] [place] [address]- 0027 07 Jan, 2013 [facility] [place] [facility] [address] [id number] [place] [address]- 2182 04 Jan, 2013 [facility] [place] [facility] [address] [id number] [place] [address]- 0030 28 Dec, 2012 [facility] [place] [facility] [address] [id number] [place] [address]- 7946 25 Dec, 2012 [facility] [place] [facility] [address] [id number] [place] [address]- 3854 13 Dec, 2012 [facility] [place] [facility] [address] [id number] [place] [address]- 4749 Dec, [facility] [place] [facility] [address] [id number] [place] [address]- 9573 07 Dec, 2012 [facility] [place] [facility] [address] [facility] [id number] [place] [address]- 0033 06 Dec, 2012 [facility] [place] [facility] [address] [facility] [id number] [place] [address]- 3065 05 Dec, 2012 [facility] [place] [facility] [address] [id number] [place] [address]- 6091 Nov, [facility] [place] [facility] [address] [id number] [place] [address]- 5979 24 Nov, 2012 [facility] [place] [facility] [address] [id number] [place] [address]- 5569 18 Nov, 2012 [facility] [place] [facility] [address] [id number] [place] [address]- 4695 15 Nov, 2012 [facility] [place] [facility] [address] [id number] [place] [address]- 5540 Nov, [facility] [address] [id number] [place] [address]- 6375 Nov, [facility] [place] [facility] [address] [id number] [place] [address]- 0617 Nov, [facility] [address] [facility] [id number] [place] [address]- 1876 Oct, [facility] [place] [facility] [address] [id number] [place] [address] Oct, [facility] [address] [id number] [place] [address] Oct, [facility] [place] [facility] [address] [id number] [place] [address] Oct, [facility] [address] [id number] [place] [address] Oct, [facility] [place] [facility] [address] [id number] [place] [address] Oct, [facility] [address] [facility] [id number] [place] [address] Oct, [facility] [place] [facility] [address] [facility] [id number] [place] [address] Oct, [facility] [place] [facility] [address] [facility] [id number] [place] [address] Oct, [facility] [place] [facility] [address] [id number] [place] [address] Oct, [facility] [place] [facility] [address] [id number] [place] [address] 2000 Oct, [facility] [place] [facility] [address] [id number] [place] [address] Oct, [facility] [place] [facility] [address] [facility] [id number] [place] [address] 8060 Sep, [facility] [place] [facility] [address] [id number] [place] [address] 94[address] Sep, [facility] [place] [facility] [address] [id number] [place] [address]248 Sep, [facility] [place] [facility] [address] [id number] [place] [address] Sep, [facility] [place] [facility] [address] [id number] [place] [address] 9288 Sep, [facility] [place] [facility] [address] [id number] [place] [address] Sep, [facility] [place] [facility] [address] [id number] [place] [address] Sep, [facility] [place] [facility] [address] [id number] [place] [address]- [address]159 Sep, [facility] [place] [facility] [address] [id number] [place] [address]- 49[address] Sep, [facility] [place] [facility] [address] [id number] [place] [address]- 4870 Sep, [facility] [place] [facility] [address] [id number] [place] [address]- 8069 Sep, [facility] [place] [facility] [address] [facility] [id number] [place] [address] Aug, [facility] [place] [facility] [address] [id number] [place] [address]- 6[address] Aug, [facility] [place] [facility] [address] [id number] [place] [address] 9604 Aug, [facility] [place] [facility] [address] [id number] [place] [address]183 Aug, [facility] [place] [facility] [address] [id number] [place] [address] Aug, [facility] [place] [facility] [address] [id number] [place] [address] 8553 Aug, [facility] [place] [facility] [address] [id number] [place] [address]- 1597 Aug, [facility] [place] [facility] [address] [id number] [place] [address] 7757 Aug, [facility] [place] [facility] [address] [id number] [place] [address]- 5561 Aug, [facility] [place] [facility] [address] [id number] [place] [address] 7348 Aug, [facility] [place] [facility] [address] [id number] [place] [address] 34[address] Jul, [facility] [place] [facility] [address] [id number] [place] [address] 1361 Jul, [facility] [place] [facility] [address] [id number] [place] [address] 5468 Jul, [facility] [place] [facility] [address] [id number] [place] [address]- 8566 Jul, [facility] [place] [facility] [address] [id number] [place] [address]- 9400 Jun, [facility] [place] [facility] [address] [id number] [place] [address] 3439 Jun, [facility] [place] [facility] [address] [id number] [place] [address] 5725 Jun, [facility] [place] [facility] [address] [id number], [place] [address] Jun, [facility] [place] [facility] [address] [id number] [place] [address]- [address] Jun, [facility] [place] [facility] [address] [id number] [place] [address]- 7527 Jun, [facility] [place] [facility] [address] [id number] [place] [address]- 4482 Jun, [facility] [place] [facility] [address] [id number] [place] [address]- [address]14 24 May, 2012 [facility] [place] [facility] [address] [id number] [place] [address]- 59[address] May, [facility] [place] [facility] [address] [id number] [place] [address]- 3946 May, [facility] [place] [facility] [address] [id number] [place] [address]- [address] May, [facility] [place] [facility] [address] [id number] [place] [address]- 6441 May, [facility] [place] [facility] [address] [id number] [place] [address]- [address]562 Apr, [facility] [place] [facility] [address] [id number] [place] [address]- 0592 Apr, [facility] [place] [facility] [address] [id number] [place] [address]- 8[address] Apr, [facility] [place] [facility] [address] [id number] [place] [address]- 9905 Apr, [facility] [place] [facility] [address] [id number] [place] [address]- 5880 Apr, [facility] [place] [facility] [address] [id number] [place] [address]- 6874 March, [facility] [place] [facility] [address] [id number] [place] [address]- 9296 March, [facility] [place] [facility] [address] [id number] [place] [address]- 7568 March, [facility] [place] [facility] [address] [id number] [place] [address] 3313 March, [facility] [place] [facility] [address] [id number] [place] [address]- 1615 March, [facility] [place] [facility] [address] [id number] [place] [address]- 8426 March, [facility] [place] [facility] [address] [id number] [place] [address]- [address] March, [facility] [address] [id number] [place] [address]- [address] March, [facility] [place] [facility] [address] [id number] [place] [address]- [address]376 March, [facility] [address] [id number] [place] [address]- 7298 March, [facility] [address] [id number] [place] [address]- 8425 Feb, [facility] [place] [facility] [address] [id number] [place] [address]- 4[address] Feb, [facility] [address] [id number] [place] [address]- 9369 Feb, [facility] [address] [id number] [place] [address]- 6178 Feb, [facility] [address] [id number] [place] [address]- 290[address] Feb, [facility] [place] [facility] [address] [id number] [place] [address]- 7019 Feb, [facility] [place] [facility] [address] [id number] [place] [address]- 4794 Feb, [facility] [place] [place] [facility] [address] [id number] [place] [address]- 0269 Feb, [facility] [place] [facility] [address] [id number] [place] [id number] Feb, [facility] [place] [facility] [address] [id number] [place] [address] Jan, [facility] [place] [facility] [address] [id number] [place] [address] Jan, [facility] [place] [facility] [address] [id number] [place] [address] Jan, [facility] [address] [id number] [place] [address] Jan, [facility] [address] [id number] [place] [address] Dec, [facility] [address] [id number] [place] [address] Dec, [facility] [address] [id number] [place] [address] Nov, [facility] [address] [id number] [place] [address] Nov, [facility] [address] [id number] [place] [address] Nov, [facility] [address] [id number] [place] [address] Nov, [facility] [address] [id number] [place] [address] Nov, [facility] [address] [id number] [place] [address] Oct, [facility] [address] [id number] [place] [address] Oct, [facility] [address] [id number] [place] [address] Oct[place] [facility] [place] [facility] [address] [id number] [place] [address] Oct, [facility] [place] [facility] [address] [id number] [place] [address] Oct, [facility] [place] [facility] [address] [id number] [place] [address] Oct, [facility] [place] [facility] [address] [id number] [place] [address] Oct, [facility] [place] [place] [facility] [address] [facility] [id number] [place] [address] Oct, [facility] [address] [facility] [id number] [address] Sep, IMMUNIZATIONS No Known Immunizations SOCIAL HISTORY Never Assessed REASON FOR VISIT ER follow up PLAN OF CARE Activity Details Follow Up prn Reason: VITAL SIGNS MEDICATIONS Medication Instructions Dosage Frequency Start Date End Date Duration Status Tylenol 325 MG Orally with her Ultram tid for 7 days 2 tablet Apr, Apr, 07 days Active BuPROPion HCl ER (XL) 300 MG Orally Once a day at HS 1 tablet in the morning Not-Taking Tramadol HCl 50 mg Orally 3 times a day 1 tablet as needed 8h Dec, 28 days Not-Taking Tamsulosin HCl 0.4 MG Orally Once a day 1 capsule 24h Not-Taking Atorvastatin Calcium 40 MG Orally Once a day 1 tablet 24h Oct, 30 day(s) Not-Taking Oxybutynin Chloride ER 10 MG 1 TABLET BY MOUTH EVERY DAY FOR UNINHIBITED NEUROPATHC BLADDER, NEC Not-Taking Gabapentin 400 MG Orally Three times a day 1 capsule 8h Not-Taking MetFORMIN HCl ER 500 MG Orally Once a day 1 tablet with evening meal 24h Not-Taking Albuterol Sulfate HFA 108 (90 Base) MCG/ACT Inhalation every 6 hrs 2 puffs as needed 6h Nov, Not-Taking Estradiol 0.1 MG/GM Vaginal 3 times per week 1 application to skin Not-Taking Escitalopram Oxalate 20 MG Orally Once a day 1 tablet 24h Nov, 30 day(s) Not-Taking Potassium Chloride Radha ER 20 meq Orally q48H TAKES WITH FUROSEMIDE 2 tablet with food Not-Taking MiraLax 17 gm/dose Orally Once a day 17 grams mixed in 8 oz of water or juice 24h Apr, Not-Taking Biofreeze Roll-On 4 % Externally 3 times a day 1 application to affected area as needed 8h Apr, Active Tylenol 325 MG Orally 3 times a day to be given with Tramadol 1 tablet Feb, Not-Taking Furosemide 20 mg Orally every other day 1 tablet Not-Taking Ondansetron HCl 4 MG Orally every 6 hours as needed NAUSEA/VOMITING 1 tablets Not-Taking Metoprolol Tartrate 50 MG Orally Twice a day 1 tablet with food 12h Not-Taking RESULTS No Results PROCEDURES Procedure Date Ordered Result Body Site Minor complication (15 mins) May 06, 2018 INSTRUCTIONS MEDICATIONS ADMINISTERED No Known Medications MEDICAL (GENERAL) HISTORY Type Description Date 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
--- OUTSIDE RECORDS SUMMARY | 2018-09-04 11:38 | XMS REPORT ---
Author Author SHAHNAZ MARQUEZ [facility] Address [address] [place] [address] Care Team Providers Care History Professor Name Role Phone SHAHNAZ MARQUEZ Unavailable PROBLEMS Type Condition ICD9-CM Code TFG95-AK Code Onset Dates Condition Status SNOMED Code Problem Type 2 diabetes mellitus without complication, without long-term current use of insulin E11.9 Active 083852547 Problem Reactive depression F32.9 Active 16589558 Problem Ventral hernia without obstruction or gangrene K43.9 Active 913334539 Problem 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 Active 29649662 Problem Paroxysmal atrial fibrillation I48.0 Active 805713718 Problem Anxiety F41.9 Active 23544207 Problem Pharyngeal dysphagia R13.13 Active 23320290309104 Problem Insomnia G47.00 Active 077573572 Problem Peripheral vascular disease I73.9 Active 064553505 Problem Coronary artery disease I25.10 Active 67101903 Problem Hyperlipidemia E78.5 Active 62361109 Problem Other chronic pain G89.29 Active 53484420 Problem Hypertension I10 Active 98139865 Problem Low back pain M54.5 Active 205160277 ALLERGIES No Information ENCOUNTERS Encounter Location Date Diagnosis [email or web address] [address] [facility] [place] [id number] Jun, 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 [facility] [address] [id number] [address] Jun, Other chronic pain G89.29 [facility] [address] [id number] [address] Jun, Via [employer] [address] [facility] [address] [address] [place] [id number] May, Anxiety F41.9 ; Type 2 diabetes mellitus without complication, without long-term current use of insulin E11.9 ; Hypertension I10 ; Low back pain M54.5 ; Paroxysmal atrial fibrillation I48.0 and 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 [facility] [address] [id number] [address] May, Other chronic pain G89.29 Via [employer] [address] [place] [id number] May, Low back pain M54.5 [facility] [id number] [place] [address] 98221- 3726 May, [facility] [address] [id number] [place] [address] 21993- 0868 Apr, Other chronic pain G89.29 [facility] [id number] [place] [address] 12511- 2458 Apr, [facility] [address] [facility] [id number] [place] [address] 97356- 1482 Apr, Via [employer] [address] [place] [id number] Apr, Closed compression fracture of L3 lumbar vertebra with routine healing, subsequent encounter S32.030D Via [employer] [address] [place] [id number] Apr, Low back pain M54.5 Via [employer] [address] [place] [id number] Apr, Coccydynia M53.3 [facility] [address] [facility] [id number] [place] [address] March, [facility] [address] [id number] [place] [address] March, Other chronic pain G89.29 [facility] [address] [id number] [place] [address] 5848 March, [facility] [address] [facility] [id number] [place] [address] 1066 March, [facility] [address] [facility] [id number] [place] [address] 7[address] Feb, [facility] [address] [id number] [address] 8262 Feb, Other chronic pain G89.29 Via [employer] [address] [place] [id number] Feb, Other chronic pain G89.29 and Anxiety F41.9 [facility] [address] [address] Feb, [facility] [address]100[place] [address] 0349 Jan, [facility] [id number] [place] [address] 27614- 8652 Jan, [facility] [id number] [place] [address] 04487- 7705 Jan, [facility] [id number] [place] [address] 61717- 0443 Jan, [facility] [address]00565100[place] [address] 89[address] Dec, [email or web address] [address] [place] [id number] Dec, Peripheral vascular disease I73.9 ; 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 ; Other chronic pain G89.29 ; Anxiety F41.9 ; Reactive depression F32.9 ; Insomnia G47.00 and Type 2 diabetes mellitus without complication, without long-term current use of insulin E11.9 [facility] [address] [id number] [place] [address] Nov [facility] [address] [id number] [place] [address] Nov, Anxiety F41.9 [facility] [address] [id number] [address] 3934 Nov, [facility] [id number] [place] [address] Nov, Anxiety F41.9 [email or web address] [address] [place] [id number] Nov, Status post surgery Z98.890 ; Confused R41.0 ; Anxiety F41.9 and Other chronic pain G89.29 [facility] [id number] [place] [address] Nov, Other chronic pain G89.29 [facility] [address]00565100[place] [address] 0[address] Oct, [facility] [id number] [place] [address] [id number] Oct, Other chronic pain G89.29 [facility] [id number] [place] [address] 46897- 6316 Oct, Anxiety F41.9 [facility] [id number] [place] [address] [id number] Sep, Other chronic pain G89.29 [facility] [id number] [place] [address] [id number] Sep, Via [employer] [address] [place] [id number] Aug, Dysuria R30.0 and Anxiety F41.9 [facility] [address]00565100[place] [address] Aug, [facility] [id number] [place] [address] Aug, Other chronic pain G89.29 [facility] [id number] [place] [address] 95874- 1306 Jul, Other chronic pain G89.29 [facility] [id number] [place] [address] Jun, [facility] [id number] [place] [id number] Jun, Other chronic pain G89.29 [facility] [address]00565100[place] [address] Jun, [facility] [address]00565100[place] [address] 5[address] May, Other chronic pain G89.29 [facility] [id number] [place] [address] 60354- 3888 Apr, Other chronic pain G89.29 Via [facility] [employer] [address] [place] [id number] Apr, Reactive depression F32.9 and Pharyngeal dysphagia R13.13 [facility] [id number] [place] [address] 57557- 7601 Apr, Urinary tract infection without hematuria, site unspecified N39.0 [facility] [id number] [place] [address] 65565- 1874 March, Other chronic pain G89.29 [facility] [id number] [place] [address] 45223- 6786 Feb, Other chronic pain G89.29 [facility] [id number] [place] [address] 02366- 9518 Feb, [facility] [id number] [place] [address] [id number] Feb, Via [employer] [address] [place] [id number] Feb, Dysuria R30.0 and Ventral hernia without obstruction or gangrene K43.9 [facility] [id number] [place] [address] 86092- 0951 Jan, Other chronic pain G89.29 [facility] [id number] [place] [address] [id number] Dec, Other chronic pain G89.29 [facility] [id number] [place] [address] 12005518- 8035 Nov, Other chronic pain G89.29 Via [employer] [address] [place] [id number] Nov, Lymphadenitis I88.9 [facility] [address] [facility] [id number] [place] [address] 03870- 6167 Nov, Other chronic pain G89.29 [facility] [id number] [place] [address] 89524- 6860 Nov, [facility] [place] [facility] [id number] [place] [address] [id number] Nov, Other chronic pain G89.29 Via [facility] [address] [place] [id number] Oct, Low back pain M54.5 ; Hypertension I10 and Type 2 diabetes mellitus without complication, without long-term current use of insulin E11.9 [facility] [id number] [place] [address] 88903- 6932 Oct, [facility] [id number] [place] [address] 54133- 8878 Oct, [facility] [id number] [place] [address] 36834- 4681 Oct, [facility] [id number] [place] [address] 83936- 3607 Oct, [facility] [id number] [place] [address] 43394- 3706 Sep, [facility] [id number] [place] [address] 61494- 6719 Sep, [facility] [id number] [place] [address] 35693- 8917 Aug, Other chronic pain G89.29 [facility] [id number] [place] [address] 13842- 9053 Jul, [facility] [id number] [place] [address] 67240- 2274 Jul, [facility] [id number] [place] [address] 378645- 2310 Jul, [facility] [id number] [place] [address] 19887- 8928 Jun, [facility] [address]65100[place] [address]- 0417 Jun, Via [facility] [address] [place] [id number] Jun, Low back pain M54.5 ; Other chronic pain G89.29 and Coronary artery disease I25.10 [facility] [id number] [place] [address] 54761- 7915 Jun, [facility] [id number] [place] [address] 03323- 1960 May, [facility] [id number] [place] [address] 59222- 0993 May, [facility] [id number] [place] [address] 44982- 7353 May, Other chronic pain G89.29 [facility] [id number] [place] [address] 69482- 8043 May, [facility] [id number] [place] [address] 33972- 7754 Apr, [facility] [id number] [place] [address] 88092- 0189 Apr, Acute cystitis without hematuria N30.00 [facility] [id number] [place] [address] 99374- 6315 Apr, Acute cystitis without hematuria N30.00 ; Coronary artery disease I25.10 ; Low back pain M54.5 and Other chronic pain G89.29 [facility] [address] [address]- 2840 Apr, Other chronic pain G89.29 [facility] [address] [address]- 3476 March, Other chronic pain G89.29 [facility] [id number] [place] [address] 78992- 0088 18 Feb, 2016 [facility] [address] [address]- 9492 15 Feb, 2016 Arthritis M19.90 [facility] [id number] [place] [address] 51690- 7953 13 Feb, 2016 [facility] [id number] [place] [address] 25732- 7565 30 Jan, 2016 [facility] [id number] [place] [address] 80931- 0103 Jan, [facility] [id number] [place] [address] 30429- 3251 Jan, Other chronic pain G89.29 [facility] [id number] [place] [address] 86731- 6405 Jan, Hypertension I10 ; Coronary artery disease I25.10 and Insomnia G47.00 [facility] [id number] [place] [address] 12317- 7954 Jan, [facility] [id number] [place] [address] 28394- 3959 Dec, Right hip pain M25.551 [facility] [id number] [place] [address] 90469- 5254 Dec, [facility] [id number] [place] [address] 28875- 0617 Dec, [facility] [id number] [place] [address] 89205- 2547 Dec, [facility] [id number] [place] [address] 43220- 2470 Dec, Other chronic pain G89.29 [facility] [id number] [place] [address] 19182- 3846 Dec, [facility] [id number] [place] [address] 72285- 9747 Nov, [facility] [address] [place] [address] 70531- 5407 Nov, Other chronic pain G89.29 [facility] [id number] [place] [address] 00649- 4470 Nov, Right hip pain M25.551 and Coronary artery disease I25.10 [facility] [address] 41675- 7520 Nov, Other chronic pain G89.29 [facility] [id number] [place] [address] 75018- 6706 Oct, [facility] [address] 87743- 5857 Oct, [facility] [id number] [place] [address] 50110- 0652 Sep, [facility] [id number] [place] [address] 15605- 5505 Sep, [facility] [id number] [place] [address] 28985- 9866 Aug, [facility] [id number] [place] [address] 16271- 1209 Aug, Hypertension I10 ; Coronary artery disease I25.10 and Arthritis M19.90 [facility] [id number] [place] [address] 76229- 6761 Jun, [facility] [id number] [place] [address] 43664- 4798 Jun, Essential hypertension, benign 401.1 ; Other chronic pain 338.29 and Chronic airway obstruction, not elsewhere classified 496 [facility] [id number] [place] [address] 62197- 3700 Jun, [facility] [id number] [place] [address] 24822- 3253 Jun, [facility] [address] [id number] [place] [address]- 9188 Jun, [facility] [address] [id number] [place] [address]- 2411 May, [facility] [address] [id number] [place] [address]- 8906 May, [facility] [address] [id number] [place] [address]- 8031 Apr, [facility] [address] [id number] [place] [address]- 6559 Apr, [facility] [address] [id number] [place] [address]- 7750 Apr, [facility] [address] [id number] [place] [address]- 5149 March, [facility] [address] [id number] [place] [address]- 2778 March, [facility] [address] [id number] [place] [address]- 5127 March, [facility] [address] [id number] [place] [address]- 9341 March, [facility] [address] [facility] [id number] [place] [address]- 3612 March, Sialadenitis 527.2 [facility] [address] [id number] [place] [address]- 8668 Feb, [facility] [place] [facility] [address] [id number] [place] [address]- 9239 Feb, [facility] [address] [id number] [place] [address]- 0527 Feb, [facility] [address] [id number] [place] 2885 Feb, [facility] [address] [id number] [place] [address]- 5652 Feb, [facility] [place] [facility] [address] [id number] [place] [address]- 5967 Jan, [facility] [place] [facility] [address] [id number] [place] [address]- 1856 Jan, [facility] [place] [facility] [address] [facility] [id number] [place] [address]- 4084 Jan, [facility] [place] [facility] [address] [id number] [place] [address]- 9530 Jan, [facility] [place] [facility] [address] [id number] [place] [address]- 0131 Jan, [facility] [place] [facility] [address] [facility] [id number] [place] [address]- 6133 Jan, [facility] [place] [facility] [address] [id number] [place] [address]- 3272 Dec, [facility] [place] [facility] [address] [facility] [id number] [place] [address]- 1676 Dec, 2014 [facility] [place] [facility] [address] [facility] [id number] [place] [address]- 1077 Dec, 2014 [facility] [place] [facility] [address] [facility] [id number] [place] [address]- 8914 Dec, [facility] [place] [facility] [address] [facility] [id number] [place] [address]- 6107 Dec, 2014 [facility] [place] [facility] [address] [facility] [id number] [address]- 0055 Dec, 2014 [facility] [place] [facility] [address] [id number] [place] [address]- 9570 Nov, [facility] [place] [facility] [address] [facility] [id number] [place] [address]- 9747 Nov, [facility] [place] [facility] [address] [facility] [id number] [place] [address]- 3060 Nov, [facility] [place] [facility] [address] [id number] [place] [address]- 5329 Nov, [facility] [address] [id number] [place] [address]- 8620 Nov, [facility] [place] [facility] [address] [id number] [place] [address]- 6739 Nov, [facility] [address] [id number] [place] [address]- 4208 Nov, [facility] [address] [id number] [place] [address]- 5300 Nov, [facility] [address] [id number] [place] [address]- 7477 Nov, [facility] [address] [id number] [place] [address]- 1970 Nov, [facility] [address] [id number] [place] [address]- 9126 Nov, [facility] [address] [id number] [place] [address]- 5741 Nov, [facility] [address] [id number] [place] [address]- 4911 Nov, [facility] [place] [facility] [address] [id number] [place] [address]- 8436 Nov, [facility] [place] [facility] [address] [id number] [place] [address]- 7332 Oct, [facility] [place] [facility] [address] [id number] [place] [address]- 4844 Oct, [facility] [place] [facility] [address] [id number] [place] [address]- 9864 Oct, [facility] [place] [facility] [address] [id number] [place] [address]- 4251 Oct, [facility] [place] [facility] [address] [id number] [place] [address] 18 Oct, 2014 [facility] [place] [facility] [address] [id number] [place] [address] Oct, [facility] [place] [facility] [address] [id number] [place] [address] Oct, [facility] [place] [facility] [address] [id number] [place] [address] Oct, [facility] [place] [facility] [address] [id number] [place] [address] Oct, [facility] [place] [facility] [address] [id number] [place] [address] Sep, [facility] [place] [facility] [address] [id number] [place] [address] Sep, [facility] [place] [facility] [address] [id number] [place] [address] Sep, [facility] [place] [facility] [address] [id number] [place] [address] Sep, [facility] [place] [facility] [address] [id number] [place] [address] Sep, [facility] [place] [facility] [address] [id number] [place] [address] Sep, [facility] [place] [facility] [address] [id number] [place] [address] Sep, [facility] [place] [facility] [address] [id number] [place] [address] Sep, [facility] [place] [facility] [address] [id number] [place] [address] Sep, [facility] [place] [facility] [address] [id number] [place] [address] Sep, [facility] [place] [facility] [address] [id number] [place] [address] Sep, [facility] [place] [facility] [address] [id number] [place] [address] Sep, [facility] [place] [facility] [address] [id number] [place] [address] 30 Aug, 2014 [facility] [place] [facility] [address] [id number] [place] [address] 30 Aug, 2014 [facility] [place] [facility] [address] [id number] [place] [address] 29 Aug, 2014 [facility] [place] [facility] [address] [id number] [place] [address] 29 Aug, 2014 [facility] [place] [facility] [address] [id number] [place] [address] Aug, [facility] [place] [facility] [address] [id number] [place] [address] Aug, [facility] [place] [facility] [address] [id number] [place] [address] Aug, [facility] [place] [facility] [address] [id number] [place] [address] 17 Aug, 2014 [facility] [place] [facility] [address] [id number] [place] [address] 30 Jul, 2013 [facility] [place] [facility] [address] [id number] [place] [address] 30 Sep, 2013 [facility] [place] [facility] [address] [id number] [place] [address] 30 Sep, 2013 [facility] [place] [facility] [address] [id number] [place] [address] 30 Sep, 2013 [facility] [place] [facility] [address] [id number] [place] [address] 25 Sep, 2013 [facility] [place] [facility] [address] [id number] [place] [address] 25 Sep, 2013 [facility] [place] [facility] [address] [id number] [place] [address]39 Jul, [facility] [place] [facility] [address] [id number] [place] [address] Jul, [facility] [place] [facility] [address] [id number] [place] [address] 8991 Jul, [facility] [place] [facility] [address] [id number] [place] [address] Jul, [facility] [place] [facility] [address] [id number] [place] [address]- 6542 Jun, [facility] [place] [facility] [address] [id number] [place] [address]- 7284 Jun, [facility] [place] [facility] [address] [id number] [place] [address]- 5524 Jun, [facility] [place] [facility] [address] [id number] [place] [address]- 6427 Jun, [facility] [place] [facility] [address] [id number] [place] [address]- 6202 Jun, [facility] [place] [facility] [address] [id number] [place] [address]- 2745 Jun, [facility] [place] [facility] [address] [id number] [place] [address]- 1505 Jun, [facility] [place] [facility] [address] [id number] [place] [address]- 6191 Jun, [facility] [place] [facility] [address] [id number] [place] [address]- 9598 Jun, [facility] [place] [facility] [address] [id number] [place] [address]- 0067 Jun, [facility] [place] [facility] [address] [id number] [place] [address]- 1196 Jun, [facility] [place] [facility] [address] [id number] [place] [address]- 8249 Jun, [facility] [place] [facility] [address] [id number] [place] [address]- 5919 Jun, [facility] [place] [facility] [address] [id number] [place] [address]- 4808 Jun, [facility] [place] [facility] [address] [id number] [place] [address]- 4562 Jun, [facility] [place] [facility] [address] [id number] [place] [address]- 7654 Jun, [facility] [place] [facility] [address] [id number] [place] [address]- 4126 Jun, [facility] [place] [facility] [address] [id number] [place] [address]- 8251 Jun, [facility] [place] [facility] [address] [id number] [place] [address]- 1050 Jun, [facility] [place] [facility] [address] [id number] [place] [address]- 3240 Jun, [facility] [place] [facility] [address] [id number] [place] [address]- 2058 Jun, [facility] [place] [facility] [address] [id number] [place] [address]- 3934 Jun, [facility] [place] [facility] [address] [id number] [place] [address]- 3987 May, [facility] [place] [facility] [address] [id number] [place] [address]- 6505 May, [facility] [place] [facility] [address] [id number] [place] [address]- 8517 May, [facility] [place] [facility] [address] [id number] [place] [address]- 0752 May, [facility] [place] [facility] [address] [id number] [place] [address]- 4800 May, [facility] [place] [facility] [address] [id number] [place] [address]- 0198 May, [facility] [place] [facility] [address] [id number] [place] [address]- 49[address] May, 2013 [facility] [place] [facility] [address] [id number] [place] [address]- 3422 May, 2013 [facility] [place] [facility] [address] [id number] [facility] [address]- 9946 May, 2013 [facility] [place] [facility] [address] [id number] [place] [address]- 2213 May, 2013 [facility] [place] [facility] [address] [id number] [place] [address]- 4841 May, 2013 [facility] [place] [facility] [address] [id number] [place] [address]- 4977 May, [facility] [place] [facility] [address] [id number] [place] [address]- 1176 May, [facility] [place] [facility] [address] [id number] [place] [address]- 6004 Apr, [facility] [place] [facility] [address] [id number] [place] [address]- 8597 Apr, [facility] [place] [facility] [address] [id number] [place] [address]- 0117 Apr, [facility] [place] [facility] [address] [id number] [place] [address]- 4426 Apr, [facility] [place] [facility] [address] [id number] [place] [address]- 5169 Apr, [facility] [place] [facility] [address] [id number] [place] [address]- 8239 Apr, [facility] [place] [facility] [address] [id number] [place] [address]- 7871 Apr, [facility] [place] [facility] [address] [id number] [place] [address]- 5760 Apr, [facility] [place] [facility] [address] [id number] [place] [address]- 7722 Apr, [facility] [address] [id number] [place] [address]- 3905 March, [facility] [place] [facility] [address] [id number] [place] [address]- 5451 March, [facility] [place] [facility] [address] [id number] [place] [address]- 7221 March, [facility] [place] [facility] [address] [id number] [place] [address]- 3646 March, [facility] [place] [facility] [address] [id number] [place] [address]- 8583 March, [facility] [place] [facility] [address] [id number] [place] [address]- 3605 March, [facility] [place] [facility] [address] [id number] [place] [address]- 7997 March, [facility] [place] [facility] [address] [id number] [place] [address]- 7306 March, [facility] [place] [facility] [address] [id number] [place] [address]- 4867 March, [facility] [place] [facility] [address] [id number] [place] [address]- 8783 March, [facility] [place] [facility] [address] [id number] [place] [address]- 4070 March, [facility] [place] [facility] [address] [id number] [place] [address]- 5618 March, [facility] [place] [facility] [address] [id number] [place] [address]- 1222 March, [facility] [place] [facility] [address] [id number] [place] [address]- 5991 March, [facility] [place] [facility] [address] [id number] [place] [address]- 2834 March, [facility] [place] [facility] [address] [id number] [place] [address]- 7621 March, [facility] [place] [facility] [address] [id number] [place] [address]- 5658 March, [facility] [place] [facility] [address] [id number] [place] [address]- 1943 March, [facility] [place] [facility] [address] [id number] [place] [address]- 8275 March, [facility] [place] [facility] [address] [id number] [place] [address]- 3107 March, [facility] [place] [facility] [address] [id number] [place] [address]- 4916 Feb, [facility] [place] [facility] [address] [id number] [place] [address]- 1606 Feb, [facility] [place] [facility] [address] [id number] [place] [address]- 9642 Feb, [facility] [place] [facility] [address] [id number] [place] [address]- 1481 Feb, [facility] [place] [facility] [address] [id number] [place] [address]- 6418 Feb, [facility] [place] [facility] [address] [id number] [place] [address]- 2424 Feb, [facility] [place] [facility] [address] [id number] [place] [address]- 3763 Feb, [facility] [place] [facility] [address] [id number] [place] [address]- 9890 Feb, [facility] [place] [facility] [address] [id number] [place] [address]- 8937 Jan, [facility] [place] [facility] [address] [id number] [place] [address]- 0688 Jan, [facility] [place] [facility] [address] [id number] [place] [address]- 9693 Jan, [facility] [place] [facility] [address] [id number] [place] [address]- 8670 Jan, [facility] [place] [facility] [address] [id number] [place] [address]- 5073 Jan, [facility] [place] [facility] [address] [id number] [place] [address]- 2066 Jan, [facility] [place] [facility] [address] [id number] [place] [address]- 5908 Jan, [facility] [place] [facility] [address] [id number] [place] [address]- 9104 Jan, [facility] [place] [facility] [address] [id number] [place] [address]- 1020 Jan, [facility] [place] [facility] [address] [id number] [place] [address]- 2600 Jan, [facility] [place] [facility] [address] [id number] [place] [address]- 1233 Dec, [facility] [place] [facility] [address] [id number] [place] [address]- 0997 Dec, [facility] [place] [facility] [address] [id number] [place] [address]- 7469 Dec, [facility] [place] [facility] [address] [id number] [place] [address]- 1820 Dec, [facility] [place] [facility] [address] [id number] [place] [address]- 6265 2013 [facility] [place] [facility] [address] [id number] [place] [address]- 5074 Dec, [facility] [place] [facility] [address] [id number] [place] [address]- 6272 Dec, [facility] [place] [facility] [address] [id number] [place] [address]- 1563 Dec, [facility] [place] [facility] [address] [id number] [place] [address]- 4181 29 Nov, 2013 [facility] [place] [facility] [address] [id number] [place] [address]- 6459 Nov, [facility] [place] [facility] [address] [id number] [place] [address]- 2974 Nov, [facility] [place] [facility] [address] [id number] [place] [address]- 9450 Nov, [facility] [place] [facility] [address] [id number] [place] [address]- 7586 Nov, [facility] [place] [facility] [address] [id number] [place] [address]- 4000 Nov, [facility] [place] [facility] [address] [id number] [place] [address]- 9593 Nov, [facility] [place] [facility] [address] [id number] [place] [address]- 6909 Nov, [facility] [place] [facility] [address] [id number] [place] [address]- 6031 Nov, [facility] [place] [facility] [address] [id number] [place] [address]- 1645 Nov, [facility] [place] [facility] [address] [id number] [place] [address]- 2337 Nov, [facility] [place] [facility] [address] [id number] [place] [address]- 3631 Nov, [facility] [place] [facility] [address] [id number] [place] [address]- 3910 Nov, [facility] [place] [facility] [address] [id number] [place] [address]- 0201 Oct, [facility] [place] [facility] [address] [id number] [place] [address]- 3773 Oct, [facility] [place] [facility] [address] [id number] [place] [address]- 3493 Oct, [facility] [place] [facility] [address] [id number] [place] [address]- 2599 Oct, [facility] [address] [id number] [place] [address]- 1516 Oct, [facility] [address] [id number] [place] [address]- 3438 Oct, [facility] [address] [id number] [place] [address]- 1197 Oct, [facility] [address] [id number] [place] [address]- 8953 Oct, [facility] [address] [id number] [place] [address]- 5317 Oct, [facility] [address] [id number] [place] [address]- 1202 Oct, [facility] [address] [id number] [place] [address]- 3785 Oct, [facility] [address] [id number] [place] [address]- 4712 Oct, [facility] [address] [id number] [place] [address]- 5926 Oct, [facility] [address] [id number] [place] [address]- 1945 Oct, [facility] [address] [id number] [place] [address]- 5278 Sep, [facility] [place] [facility] [address] [id number] [place] [address]- 0454 Sep, [facility] [place] [facility] [address] [id number] [place] [address]- 2163 Sep, [facility] [place] [facility] [address] [id number] [place] [address]- 1975 05 Sep, 2013 [facility] [place] [facility] [address] [id number] [place] [address]- 0273 Sep, [facility] [place] [facility] [address] [id number] [place] [address]- 6391 Sep, [facility] [place] [facility] [address] [id number] [place] 5116 Sep, [facility] [place] [facility] [address] [id number] [place] [address]- 8657 Sep, [facility] [place] [facility] [address] [id number] [address]- 5221 Sep, [facility] [place] [facility] [address] [id number] [place] [address]- 8492 Sep, [facility] [place] [facility] [address] [id number] [place] [address]- 5936 Aug, [facility] [place] [facility] [address] [id number] [address]- 9274 Aug, [facility] [place] [facility] [address] [id number] [place] [address]- 9854 Aug, [facility] [place] [facility] [address] [id number] [place] [address]- 0998 Aug, [facility] [place] [facility] [address] [id number] [place] [address]- 1869 Aug, [facility] [place] [facility] [address] [id number] [place] [address]- 7147 Aug, [facility] [place] [facility] [address] [id number] [place] [address]- 9545 Aug, [facility] [place] [facility] [address] [id number] [place] [address]- 3084 Aug, [facility] [place] [facility] [address] [id number] [place] [address]- 1091 Aug, [facility] [place] [facility] [address] [id number] [place] [address]- 1550 Aug, [facility] [place] [facility] [address] [id number] [place] [address]- 1916 18 Aug, 2012 [facility] [address] [id number] [place] [address]- 6234 18 Aug, 2013 [facility] [place] [facility] [address] [id number] [place] [address]- 6954 18 Aug, 2013 [facility] [address] [id number] [place] [address]- 8855 18 Aug, 2013 [facility] [place] [facility] [address] [id number] [place] [address]- 5995 17 Aug, 2013 [facility] [address] [id number] [place] [address]- 4592 14 Aug, 2013 [facility] [place] [facility] [address] [id number] [place] [address]- 5678 14 Aug, 2013 [facility] [place] [facility] [address] [id number] [place] [address]- 8263 01 Aug, 2013 [facility] [address] [id number] [place] [address]- 9643 20 Jul, 2013 [facility] [place] [facility] [address] [id number] [place] [address]- 6061 19 Jul, 2013 [facility] [address] [id number] [place] [address]- 0353 18 Jul, 2013 [facility] [place] [facility] [address] [id number] [place] [address]- 9772 11 Jul, 2013 [facility] [place] [facility] [address] [id number] [place] [address]- 1460 11 Jul, 2013 [facility] [place] [facility] [address] [id number] [place] [address]- 4026 Jun, [facility] [place] [facility] [address] [id number] [place] [address]- 1837 Jun, [facility] [place] [facility] [address] [id number] [place] [address]- 0901 Jun, [facility] [place] [facility] [address] [id number] [place] [address]- 2300 Jun, [facility] [place] [facility] [address] [id number] [place] [address]- 4487 Jun, [facility] [place] [facility] [address] [id number] [place] [address]- 6204 Jun, [facility] [place] [facility] [address] [id number] [place] [address]- 5377 Jun, [facility] [place] [facility] [address] [id number] [place] [address]- 4943 Jun, [facility] [place] [facility] [address] [id number] [place] [address]- 4083 Jun, [facility] [place] [facility] [address] [id number] [place] [address]- 8350 Jun, [facility] [place] [facility] [address] [id number] [place] [address]- 2076 May, [facility] [place] [facility] [address] [id number] [place] [address]- 2523 May, [facility] [place] [facility] [address] [id number] [place] [address]- 9692 May, [facility] [place] [facility] [address] [id number] [place] [address]- 7594 May, [facility] [place] [facility] [address] [id number] [place] [address]- 0289 May, [facility] [place] [facility] [address] [id number] [place] [address]- 2736 May, [facility] [place] [facility] [address] [id number] [place] [address]- 6849 May, [facility] [place] [facility] [address] [id number] [place] [address]- 4924 May, [facility] [place] [facility] [address] [id number] [place] [address]- 2319 May, [facility] [address] [id number] [place] [address]- 8776 Apr, [facility] [place] [facility] [address] [id number] [place] [address]- 7798 Apr, [facility] [address] [id number] [place] [address]- 2679 Apr, [facility] [address] [id number] [place] [address]- 3813 Apr, [facility] [address] [id number] [place] [address]- 3142 Apr, [facility] [address] [id number] [place] [address]- 4340 Apr, [facility] [address] [facility] [id number] [place] [address]- 9481 Apr, [facility] [address] [id number] [place] [address]- 8081 March, [facility] [address] [id number] [place] [address]- 6784 Feb, [facility] [address] [id number] [place] [address]- 8335 Feb, [facility] [address] [id number] [place] [address]- 4236 Feb, [facility] [place] [facility] [address] [id number] [place] [address]- 6067 28 Jan, 2013 [facility] [place] [facility] [address] [id number] [place] [address]- 4181 21 Jan, 2013 [facility] [place] [facility] [address] [id number] [place] [address]- 1182 19 Jan, 2013 [facility] [place] [facility] [address] [id number] [place] [address]- 0649 14 Jan, 2013 [facility] [place] [facility] [address] [id number] [place] [address]- 3488 12 Jan, 2013 [facility] [place] [facility] [address] [id number] [place] [address]- 9714 08 Jan, 2013 [facility] [place] [facility] [address] [id number] [place] [address]- 9561 07 Jan, 2013 [facility] [place] [facility] [address] [id number] [place] [address]- 6962 04 Jan, 2013 [facility] [place] [facility] [address] [id number] [place] [address]- 9732 28 Dec, 2012 [facility] [place] [facility] [address] [id number] [place] [address]- 0256 25 Dec, 2012 [facility] [place] [facility] [address] [id number] [place] [address]- 0866 13 Dec, 2012 [facility] [place] [facility] [address] [id number] [place] [address]- 5365 Dec, [facility] [place] [facility] [address] [id number] [place] [address]- 5848 07 Dec, 2012 [facility] [place] [facility] [address] [facility] [id number] [place] [address]- 0770 06 Dec, 2012 [facility] [place] [facility] [address] [facility] [id number] [place] [address]- 25[address] 05 Dec, 2012 [facility] [place] [facility] [address] [id number] [place] [address] Nov, [facility] [place] [facility] [address] [id number] [place] [address] 24 Nov, 2012 [facility] [place] [facility] [address] [id number] [place] [address] 18 Nov, 2012 [facility] [place] [facility] [address] [id number] [place] [address] 15 Nov, 2012 [facility] [place] [facility] [address] [id number] [place] [address] Nov, [facility] [address] [id number] [place] [address] Nov, [facility] [place] [facility] [address] [id number] [place] [address] Nov, [facility] [address] [facility] [id number] [place] [address] 35[address] Oct, [facility] [place] [facility] [address] [id number] [place] [address] Oct, [facility] [address] [id number] [place] [address] 0166 Oct, [facility] [place] [facility] [address] [id number] [place] [address] 7783 Oct, [facility] [address] [id number] [place] [address] Oct, [facility] [place] [facility] [address] [id number] [place] [address] 245[address] Oct, [facility] [address] [facility] [id number] [place] [address] 8288 Oct, [facility] [place] [facility] [address] [facility] [id number] [place] [address] 6[address] Oct, [facility] [place] [facility] [address] [facility] [id number] [place] [address] Oct, [facility] [place] [facility] [address] [id number] [place] [address] 34[address] Oct, [facility] [place] [facility] [address] [id number] [place] [address] 8733 Oct, [facility] [place] [facility] [address] [id number] [place] [address] Oct, [facility] [place] [facility] [address] [facility] [id number] [place] [address]- 67[address] Sep, [facility] [place] [facility] [address] [id number] [place] [address] 9568 Sep, [facility] [place] [facility] [address] [id number] [place] [address]- 3087 Sep, [facility] [place] [facility] [address] [id number] [place] [address] 3168 Sep, [facility] [place] [facility] [address] [id number] [place] [address] 7416 Sep, [facility] [place] [facility] [address] [id number] [place] [address] 1060 Sep, [facility] [place] [facility] [address] [id number] [place] [address] 97[address] Sep, [facility] [place] [facility] [address] [id number] [place] [address] 1869 Sep, [facility] [place] [facility] [address] [id number] [place] [address] 9777 Sep, [facility] [place] [facility] [address] [id number] [place] [address]- 7829 Sep, [facility] [place] [facility] [address] [id number] [place] [address]- 0421 Sep, [facility] [place] [facility] [address] [facility] [id number] [place] [address]151 Aug, [facility] [place] [facility] [address] [id number] [place] [address] 4272 Aug, [facility] [place] [facility] [address] [id number] [place] [address] 9460 Aug, [facility] [place] [facility] [address] [id number] [place] [address] 3228 Aug, [facility] [place] [facility] [address] [id number] [place] [address] 6572 Aug, [facility] [place] [facility] [address] [id number] [place] [address] 37[address] Aug, [facility] [place] [facility] [address] [id number] [place] [address] 3374 Aug, [facility] [place] [facility] [address] [id number] [place] [address] 8487 Aug, [facility] [place] [facility] [address] [id number] [place] [address] 8167 Aug, [facility] [place] [facility] [address] [id number] [place] [address] 4764 Aug, [facility] [place] [facility] [address] [id number] [place] [address]- 7686 Jul, [facility] [place] [facility] [address] [id number] [place] [address]- 2192 Jul, [facility] [place] [facility] [address] [id number] [place] [address] 0[address] Jul, [facility] [place] [facility] [address] [id number] [place] [address] 99[address] Jul, [facility] [place] [facility] [address] [id number] [place] [address] 1489 Jun, [facility] [place] [facility] [address] [id number] [place] [address] 9847 Jun, [facility] [place] [facility] [address] [id number] [place] [address]- 7971 Jun, [facility] [place] [facility] [address] [id number] [address] Jun, [facility] [place] [facility] [address] [id number] [place] [address]- 7195 Jun, [facility] [place] [facility] [address] [id number] [place] [address]- 4673 Jun, [facility] [place] [facility] [address] [id number] [place] [address] 9763 Jun, [facility] [place] [facility] [address] [id number] [place] [address]- [address]78 24 May, 2012 [facility] [place] [facility] [address] [id number] [place] [address]- 1676 May, [facility] [place] [facility] [address] [id number] [place] [address] 0956 May, [facility] [place] [facility] [address] [id number] [place] [address] 3413 May, [facility] [place] [facility] [address] [id number] [place] [address]- 6[address] May, [facility] [place] [facility] [address] [id number] [place] [address] 5255 Apr, [facility] [place] [facility] [address] [id number] [place] [address] 3310 Apr, [facility] [place] [facility] [address] [id number] [place] [address]- 9727 Apr, [facility] [place] [facility] [address] [id number] [place] [address] 5658 Apr, [facility] [place] [facility] [address] [id number] [place] [address] 0905 Apr, [facility] [place] [facility] [address] [id number] [place] [address] 4105 March, [facility] [place] [facility] [address] [id number] [place] [address] 8873 March, [facility] [place] [facility] [address] [id number] [place] [address] March, [facility] [place] [facility] [address] [id number] [place] [address] March, [facility] [place] [facility] [address] [id number] [place] [address] March, [facility] [place] [facility] [address] [id number] [place] [address] March, [facility] [place] [facility] [address] [id number] [place] [address] March, [facility] [address] [id number] [place] [address] March, [facility] [place] [facility] [address] [id number] [place] [address] March, [facility] [address] [id number] [place] [address] March, [facility] [address] [id number] [place] [address] Feb, [facility] [place] [facility] [address] [id number] [place] [address] Feb, [facility] [address] [id number] [place] [address] Feb, [facility] [address] [id number] [place] [address] Feb, [facility] [address] [id number] [place] [address] Feb[facility] [place] [facility] [address] [id number] [place] [address] Feb, [facility] [place] [facility] [address] [id number] [place] [address] Feb, [facility] [place] [facility] [address] [id number] [place] [address] Feb, [facility] [place] [facility] [address] [id number] [place] [address] Feb, [facility] [place] [facility] [address] [id number] [place] [address] Jan, [facility] [place] [facility] [address] [id number] [place] [address] Jan, [facility] [place] [facility] [address] [id number] [place] [address] Jan, [facility] [address] [id number] [place] [address] Jan, [facility] [address] [id number] [place] [address] Dec, [facility] [address] [id number] [place] [address] Dec, [facility] [address] [id number] [place] [address] Nov, [facility] [address] [id number] [place] [address] Nov, [facility] [address] [id number] [place] [address] Nov, [facility] [address] [id number] [place] [address] Nov, [facility] [address] [id number] [place] [address] Nov, [facility] [address] [id number] [place] [address] Oct, [facility] [address] [id number] [place] [address] Oct, [facility] [address] [id number] [place] [address] Oct, [facility] [place] [facility] [address] [id number] [place] [address] Oct, [facility] [place] [facility] [address] [id number] [place] [address] Oct, [facility] [place] [facility] [address] [id number] [place] [address] Oct, [facility] [place] [facility] [address] [id number] [place] [address] Oct, [facility] [place] [facility] [address] [facility] [id number] [place] [id number] Oct, [facility] [address] [facility] [id number] [address] Sep, IMMUNIZATIONS No Known Immunizations SOCIAL HISTORY [...]
--- OUTSIDE RECORDS SUMMARY | 2018-09-04 11:39 | XMS REPORT ---
Author Author SHAHNAZ MARQUEZ [facility] Address [address] [place] [address] Care Team Providers Care Card Lacer Name Role Phone SHAHNAZ MARQUEZ Unavailable PROBLEMS Type Condition ICD9-CM Code HPM94-XO Code Onset Dates Condition Status SNOMED Code Problem Type 2 diabetes mellitus without complication, without long-term current use of insulin E11.9 Active 433878693 Problem Reactive depression F32.9 Active 09006386 Problem Ventral hernia without obstruction or gangrene K43.9 Active 637884264 Problem 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 Active 17907453 Problem Paroxysmal atrial fibrillation I48.0 Active 050049743 Problem Anxiety F41.9 Active 60936873 Problem Pharyngeal dysphagia R13.13 Active [id number] Problem Insomnia G47.00 Active 620950974 Problem Peripheral vascular disease I73.9 Active 917740265 Problem Coronary artery disease I25.10 Active 46732933 Problem Hyperlipidemia E78.5 Active 08310682 Problem Other chronic pain G89.29 Active 46898128 Problem Hypertension I10 Active 42918352 Problem Low back pain M54.5 Active 575052960 ALLERGIES No Information ENCOUNTERS Encounter Location Date Diagnosis [facility] [address] [facility] [place] [id number] Jun, 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 [facility] [address] [id number] [address] Jun, Other chronic pain G89.29 [facility] [address] [id number], [place] [address] Jun, [facility] [address] [place] [id number] May, Anxiety F41.9 ; Type 2 diabetes mellitus without complication, without long-term current use of insulin E11.9 ; Hypertension I10 ; Low back pain M54.5 ; Paroxysmal atrial fibrillation I48.0 and 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 [facility] [address] [id number], [place] [address] May, Other chronic pain G89.29 [facility] [address] [place] [id number] May, Low back pain M54.5 [facility] [address] [id number] [place] [address] 70821- 0467 May, [facility] [address] [id number] [place] [address] 22260- 1877 Apr, Other chronic pain G89.29 [facility] [address] [id number] [place] [address] 34807- 5369 Apr, [facility] [address] [facility] [id number] [place] [address] 97448- 8042 Apr, Via [facility] [address] [place] [id number] Apr, Closed compression fracture of L3 lumbar vertebra with routine healing, subsequent encounter S32.030D [facility] [address] [place] [id number] Apr, Low back pain M54.5 [facility] [address] [place] [id number] Apr, Coccydynia M53.3 [facility] [address] [facility] [id number], [place] [address] March, [facility] [address] [id number], [place] [address] March, Other chronic pain G89.29 [facility] [address] [id number], [place] [address] 4208 March, [facility] [address] [facility] [id number], [place] [address] 3903 March, [facility] [address] [facility] [id number], [place] [address] Feb, [facility] [address] [id number], [place] [address] Feb, Other chronic pain G89.29 Via [facility] [address] [place] [id number] Feb, Other chronic pain G89.29 and Anxiety F41.9 [facility] [address], [place] [address] Feb, [facility] [address]65[address], [place] [address] 6[address] Jan, [facility] [id number] [place] [address] 67105- 3382 Jan, [facility] [id number] [place] [address] 89580- 9346 Jan, [facility] [id number] [place] [address] 40403- 3017 Jan, [facility] [address], [place] [address] Dec, [facility] [address] [place] [id number] Dec, Peripheral vascular disease I73.9 ; 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 ; Other chronic pain G89.29 ; Anxiety F41.9 ; Reactive depression F32.9 ; Insomnia G47.00 and Type 2 diabetes mellitus without complication, without long-term current use of insulin E11.9 [facility] [address] [id number] [address] Nov [facility] [address] [id number] [id number] Nov, Anxiety F41.9 [facility] [address] [id number], [place] [address] Nov, [facility] [id number] [id number] Nov, Anxiety F41.9 [facility] [address] [place] [id number] Nov, Status post surgery Z98.890 ; Confused R41.0 ; Anxiety F41.9 and Other chronic pain G89.29 [facility] [id number] [address] Nov, Other chronic pain G89.29 [facility] [address]65[address], [place] [address] Oct, [facility] [id number] [place] [address] [id number] Oct, Other chronic pain G89.29 [facility] [id number] [place] [address] 90679- 6096 Oct, Anxiety F41.9 [facility] [id number] [place] [address] [id number] Sep, Other chronic pain G89.29 [facility] [id number] [place] [id number] Sep, Via [facility] [address] [place] [id number] Aug, Dysuria R30.0 and Anxiety F41.9 [facility] [address], [place] [address] Aug, [facility] [id number] [id number] Aug, Other chronic pain G89.29 [facility] [address] [place] [address] 16585- 8906 Jul, Other chronic pain G89.29 [facility] [id number] [id number] Jun, [facility] [id number] [place] [address] [id number] Jun, Other chronic pain G89.29 [facility] [address], [place] [address] Jun, [facility] [address], [place] [address] 2[address] May, Other chronic pain G89.29 [facility] [address] [place] [address] 20792- 1334 Apr, Other chronic pain G89.29 Via [facility] [address] [place] [id number] Apr, Reactive depression F32.9 and Pharyngeal dysphagia R13.13 [facility] [address] [place] [address] 12144- 5282 Apr, Urinary tract infection without hematuria, site unspecified N39.0 [facility] [id number] [place] [address] 61230- 2163 March, Other chronic pain G89.29 [facility] [facility] [id number] [place] [address] 40813- 8262 Feb, Other chronic pain G89.29 [facility] [address] [place] [address] 29346- 4667 Feb, [facility] [id number] [place] [address] [id number] Feb, Via [facility] [address] [place] [id number] Feb, Dysuria R30.0 and Ventral hernia without obstruction or gangrene K43.9 [facility] [address] [place] [address] 63191- 6880 Jan, Other chronic pain G89.29 [facility] [id number] [place] [address] [id number] Dec, Other chronic pain G89.29 [facility] [address] [place] [address] 05931037- 2710 Nov, Other chronic pain G89.29 Via [facility] [facility] [address] [place] [id number] Nov, Lymphadenitis I88.9 [facility] [address] [facility] [id number] [place] [address] 89252- 6502 Nov, Other chronic pain G89.29 [facility] [id number] [place] [address] 14749- 2738 Nov, [facility] [place] [facility] [id number] [place] [address] [id number] Nov, Other chronic pain G89.29 Via [facility] [place] [address] [place] [id number] Oct, Low back pain M54.5 ; Hypertension I10 and Type 2 diabetes mellitus without complication, without long-term current use of insulin E11.9 [facility] [id number] [place] [address] 96149- 6602 Oct, [facility] [id number] [place] [address] 72946- 5868 Oct, [facility] [id number] [place] [address] 60510- 3517 Oct, [facility] [address] [place] [address] 91065- 9429 Oct, [facility] [id number] [place] [address] 53431- 7188 Sep, [facility] [address] [place] [address] 66065- 3972 Sep, [facility] [id number] [place] [address] 79661- 8524 Aug, Other chronic pain G89.29 [facility] [address] [place] [address] 14044- 5689 Jul, [facility] [id number] [place] [address] 39357- 4737 Jul, [facility] [address] [place] [address] 814248- 8182 Jul, [facility] [id number] [place] [address] 21147- 3278 Jun, [facility] [address], [place] [address]- 2133 Jun, Via [facility] [place] [address] [place] [id number] Jun, Low back pain M54.5 ; Other chronic pain G89.29 and Coronary artery disease I25.10 [facility] [id number] [place] [address] 52652- 6536 Jun, [facility] [id number] [place] [address] 94308- 2093 May, [facility] [id number] [place] [address] 14837- 5282 May, [facility] [id number] [place] [address] 79280- 0027 May, Other chronic pain G89.29 [facility] [id number] [place] [address] 78490- 6069 May, [facility] [address] [place] [address] 24063- 5692 Apr, [facility] [address] [place] [address] 25182- 3129 Apr, Acute cystitis without hematuria N30.00 [facility] [address] [place] [address] 94076- 8810 Apr, Acute cystitis without hematuria N30.00 ; Coronary artery disease I25.10 ; Low back pain M54.5 and Other chronic pain G89.29 [facility] [address], [place] [address]- 6414 Apr, Other chronic pain G89.29 [facility] [address], [place] [address]- 8575 March, Other chronic pain G89.29 [facility] [id number] [place] [address] 49820- 3507 18 Feb, 2016 [facility] [address], [place] [address]- 3456 15 Feb, 2016 Arthritis M19.90 [facility] [address] [place] [address] 40063- 3564 13 Feb, 2016 [facility] [id number] [place] [address] 96456- 2261 30 Jan, 2016 [facility] [id number] [place] [address] 29858- 6254 Jan, [facility] [id number] [place] [address] 11078- 0708 Jan, Other chronic pain G89.29 [facility] [id number] [place] [address] 28260- 1696 Jan, Hypertension I10 ; Coronary artery disease I25.10 and Insomnia G47.00 [facility] [id number] [place] [address] 22240- 2149 Jan, [facility] [id number] [place] [address] 08944- 5355 Dec, Right hip pain M25.551 [facility] [id number] [place] [address] 65072- 9870 Dec, [facility] [id number] [place] [address] 79754- 0324 Dec, [facility] [address] [place] [address] 72827- 254 Dec, [facility] [id number] [place] [address] 01896- 9622 Dec, Other chronic pain G89.29 [facility] [address] [place] [address] 31835- 5244 Dec, [facility] [id number] [place] [address] 69066- 4827 Nov, [facility] [address] [place] [address] 02309- 7152 Nov, Other chronic pain G89.29 [facility] [id number] [place] [address] 87131- 2468 Nov, Right hip pain M25.551 and Coronary artery disease I25.10 [facility] [address] [place] 02877- 1103 Nov, Other chronic pain G89.29 [facility] [id number] [place] [address] 39852- 2088 Oct, [facility] [address] 68189- 0921 Oct, [facility] [id number] [place] [address] 57501- 0929 Sep, [facility] [id number] [place] [address] 89058- 1718 Sep, [facility] [id number] [place] [address] 66125- 1162 Aug, [facility] [id number] [place] [address] 65983- 0843 Aug, Hypertension I10 ; Coronary artery disease I25.10 and Arthritis M19.90 [facility] [id number] [place] [address] 84321- 1795 Jun, [facility] [id number] [place] [address] 76745- 8886 Jun, Essential hypertension, benign 401.1 ; Other chronic pain 338.29 and Chronic airway obstruction, not elsewhere classified 496 [facility] [id number] [place] [address] 42813- 6726 Jun, [facility] [id number] [place] [address] 88248- 4671 Jun, [facility] [address] [id number] [place] [address]- 6794 Jun, [facility] [address] [id number] [place] [address]- 3175 May, [facility] [address] [id number] [place] [address]- 3697 May, [facility] [address] [id number] [place] [address]- 1510 Apr, [facility] [address] [id number] [place] [address]- 6904 Apr, [facility] [address] [id number] [place] [address]- 5318 Apr, [facility] [address] [id number] [place] [address]- 9554 March, [facility] [address] [id number] [place] [address]- 0423 March, [facility] [address] [id number] [place] [address]- 5909 March, [facility] [address] [id number] [place] [address]- 2435 March, [facility] [address] [facility] [id number] [place] [address]- 2270 March, Sialadenitis 527.2 [facility] [address] [id number] [place] [address]- 7710 Feb, [facility] [place] [facility] [address] [id number] [place] [address]- 2273 Feb, [facility] [address] [id number] [place] [address]- 1635 Feb, [facility] [address] [id number] [place] 6801 Feb, [facility] [address] [id number], [place] [address]- 2492 Feb, [facility] [place] [facility] [address] [id number] [place] [address]- 0412 Jan, [facility] [place] [facility] [address] [id number] [place] [address]- 7848 Jan, [facility] [place] [facility] [address] [facility] [id number] [place] [address]- 3602 Jan, [facility] [place] [facility] [address] [id number] [place] [address]- 0458 Jan, [facility] [place] [facility] [address] [id number] [place] [address]- 1886 Jan, [facility] [place] [facility] [address] [facility] [id number] [place] [address]- 3797 Jan, [facility] [place] [facility] [address] [id number] [place] [address]- 9813 Dec, [facility] [place] [facility] [address] [facility] [id number] [place] [address]- 3923 Dec, 2014 [facility] [place] [facility] [address] [facility] [id number] [place] [address]- 3955 Dec, 2014 [facility] [place] [facility] [address] [facility] [id number] [place] [address]- 1299 Dec, [facility] [place] [facility] [address] [facility] [id number] [place] [address]- 5597 Dec, 2014 [facility] [place] [facility] [address] [facility] [id number], [place] [address]- 8725 Dec, 2014 [facility] [place] [facility] [address] [id number], [place] [address]- 7150 Nov, [facility] [place] [facility] [address] [facility] [id number], [place] [address]- 9362 Nov, [facility] [place] [facility] [address] [facility] [id number], [place] [address]- 3886 Nov, [facility] [place] [facility] [address] [id number] [place] [address]- 8563 Nov, [facility] [address] [id number] [place] [address]- 6989 Nov, [facility] [place] [facility] [address] [id number] [place] [address]- 1063 Nov, [facility] [address] [id number] [place] [address]- 5627 Nov, [facility] [address] [id number] [place] [address]- 5283 Nov, [facility] [address] [id number] [place] [address]- 6911 Nov, [facility] [address] [id number] [place] [address]- 5593 Nov, [facility] [address] [id number] [place] [address]- 9259 Nov, [facility] [address] [id number] [place] [address]- 0014 Nov, [facility] [address] [id number] [place] [address]- 6683 Nov, [facility] [place] [facility] [address] [id number] [place] [address]- 9719 Nov, [facility] [place] [facility] [address] [id number] [place] [address]- 7724 Oct, [facility] [place] [facility] [address] [id number] [place] [address]- 7722 Oct, [facility] [place] [facility] [address] [id number] [place] [address]- 6736 Oct, [facility] [place] [facility] [address] [id number] [place] [address]- 4589 Oct, [facility] [place] [facility] [address] [id number] [place] [address]- 1862 18 Oct, 2014 [facility] [place] [facility] [address] [id number] [place] [address]- 3129 Oct, [facility] [place] [facility] [address] [id number] [place] [address]- 6817 Oct, [facility] [place] [facility] [address] [id number] [place] [address]- 4658 Oct, [facility] [place] [facility] [address] [id number] [place] [address]- 6583 Oct, [facility] [place] [facility] [address] [id number] [place] [address]- 3502 Sep, [facility] [place] [facility] [address] [id number] [place] [address]- 0158 Sep, [facility] [place] [facility] [address] [id number] [place] [address]- 2691 Sep, [facility] [place] [facility] [address] [id number] [place] [address] Sep, [facility] [place] [facility] [address] [id number] [place] [address] Sep, [facility] [place] [facility] [address] [id number] [place] [address] Sep, [facility] [place] [facility] [address] [id number] [place] [address] Sep, [facility] [place] [facility] [address] [id number] [place] [address] Sep, [facility] [place] [facility] [address] [id number] [place] [address] Sep, [facility] [place] [facility] [address] [id number] [place] [address] Sep, [facility] [place] [facility] [address] [id number] [place] [address] Sep, [facility] [place] [facility] [address] [id number] [place] [address] Sep, [facility] [place] [facility] [address] [id number] [place] [address] 30 Aug, 2014 [facility] [place] [facility] [address] [id number] [place] [address] 30 Aug, 2014 [facility] [place] [facility] [address] [id number] [place] [address]- [address] 29 Aug, 2014 [facility] [place] [facility] [address] [id number] [place] [address] 29 Aug, 2014 [facility] [place] [facility] [address] [id number] [place] [address] Aug, [facility] [place] [facility] [address] [id number] [place] [address] Aug, [facility] [place] [facility] [address] [id number] [place] [address] Aug, [facility] [place] [facility] [address] [id number] [place] [address] 17 Aug, 2014 [facility] [place] [facility] [address] [id number] [place] [address]- [address] 30 Jul, 2013 [facility] [place] [facility] [address] [id number] [place] [address] 30 Sep, 2013 [facility] [place] [facility] [address] [id number] [place] [address]- [address] 30 Sep, 2013 [facility] [place] [facility] [address] [id number] [place] [address]- [address] 30 Sep, 2013 [facility] [place] [facility] [address] [id number] [place] [address]- [address] 25 Sep, 2013 [facility] [place] [facility] [address] [id number] [place] [address]- [address] 25 Sep, 2013 [facility] [place] [facility] [address] [id number] [place] [address] Jul, [facility] [place] [facility] [address] [id number] [place] [address] Jul, [facility] [place] [facility] [address] [id number] [place] [address] Jul, [facility] [place] [facility] [address] [id number] [place] [address] Jul, [facility] [place] [facility] [address] [id number] [place] [address] Jun, [facility] [place] [facility] [address] [id number] [place] [address] Jun, [facility] [place] [facility] [address] [id number] [place] [address]- [address] Jun, [facility] [place] [facility] [address] [id number] [place] [address] Jun, [facility] [place] [facility] [address] [id number] [place] [address] Jun, [facility] [place] [facility] [address] [id number] [place] [address]- [address] Jun, [facility] [place] [facility] [address] [id number] [place] [address] Jun, [facility] [place] [facility] [address] [id number] [place] [address]- [address] Jun, [facility] [place] [facility] [address] [id number] [place] [address]- [address] Jun, [facility] [place] [facility] [address] [id number] [place] [address] Jun, [facility] [facility] [address] [id number] [place] [address] Jun, [facility] [place] [facility] [address] [id number] [place] [address]41 Jun, [facility] [place] [facility] [address] [id number] [place] [address] 0245 Jun, [facility] [place] [facility] [address] [id number] [place] [address]- 8630 Jun, [facility] [place] [facility] [address] [id number] [place] [address]- 2743 Jun, [facility] [place] [facility] [address] [id number] [place] [address]- 7666 Jun, [facility] [place] [facility] [address] [id number] [place] [address]- 2016 Jun, [facility] [place] [facility] [address] [id number] [place] [address]- 0284 Jun, [facility] [place] [facility] [address] [id number] [place] [address]- 3004 Jun, [facility] [place] [facility] [address] [id number] [place] [address]- 6908 Jun, [facility] [place] [facility] [address] [id number] [place] [address]- 7693 Jun, [facility] [place] [facility] [address] [id number] [place] [address]- 9992 Jun, [facility] [place] [facility] [address] [id number] [place] [address]- 5506 May, [facility] [place] [facility] [address] [id number] [place] [address]- 1565 May, [facility] [place] [address] [id number] [place] [address]- 7040 May, [facility] [place] [address] [id number] [place] [address]- 4716 May, [facility] [place] [address] [id number] [place] [address]- 3921 May, [facility] [place] [facility] [address] [id number] [place] [address]- 6523 May, [facility] [place] [facility] [address] [id number] [place] [address]- 74[address] May, 2013 [facility] [address] [id number] [place] [address]- 8435 May, 2013 [facility] [address] [id number] [facility] [place] [address]- 4296 May, 2013 [facility] [place] [address] [id number] [place] [address]- 2975 May, 2013 [facility] [place] [address] [id number] [place] [address]- 3246 May, 2013 [facility] [address] [id number] [place] [address]- 7285 May, [facility] [place] [address] [id number] [place] [address]- 0698 May, [facility] [place] [address] [id number] [place] [address]- 8354 Apr, [facility] [place] [address] [id number] [place] [address]- 5142 Apr, [facility] [address] [id number] [place] [address]- 9225 Apr, [facility] [address] [id number] [place] [address]- 2267 Apr, [facility] [place] [facility] [address] [id number] [place] [address]- 2907 Apr, [facility] [place] [address] [id number] [place] [address]- 2107 Apr, [facility] [address] [id number] [place] [address]- 3650 Apr, [facility] [place] [address] [id number] [place] [address]- 9837 Apr, [facility] [address] [id number] [place] [address]- 2757 Apr, [facility] [address] [id number] [place] [address]- 7541 March, [facility] [address] [id number] [place] [address]- 2526 March, [facility] [address] [id number] [place] [address]- 4105 March, [facility] [address] [id number] [place] [address]- 6709 March, [facility] [address] [id number] [place] [address]- 0402 March, [facility] [address] [id number] [place] [address]- 9006 March, [facility] [address] [id number] [place] [address]- 7429 March, [facility] [address] [id number] [place] [address]- 0506 March, [facility] [address] [id number] [place] [address]- 5703 March, [facility] [address] [id number] [place] [address]- 0333 March, [facility] [address] [id number] [place] [address]- 4247 March, [facility] [address] [id number] [place] [address]- 0780 March, [facility] [address] [id number] [place] [address]- 8915 March, [facility] [address] [id number] [place] [address]- 1420 March, [facility] [address] [id number] [place] [address]- 8971 March, [facility] [address] [id number] [place] [address]- 2726 March, [facility] [address] [id number] [place] [address]- 2998 March, [facility] [address] [id number] [place] [address]- 8058 March, [facility] [address] [id number] [place] [address]- 0733 March, [facility] [address] [id number] [place] [address]- 1996 March, [facility] [address] [id number] [place] [address]- 4924 Feb, [facility] [address] [id number] [place] [address]- 1124 Feb, [facility] [address] [id number] [place] [address]- 3850 Feb, [facility] [address] [id number] [place] [address]- 7082 Feb, [facility] [address] [id number] [place] [address]- 2531 Feb, [facility] [address] [id number] [place] [address]- 0440 Feb, [facility] [address] [id number] [place] [address]- 6098 Feb, [facility] [address] [id number] [place] [address]- 9111 Feb, [facility] [address] [id number] [place] [address]- 0835 Jan, [facility] [address] [id number] [place] [address]- 6759 Jan, [facility] [address] [id number] [place] [address]- 3405 Jan, [facility] [address] [id number] [place] [address]- 4203 Jan, [facility] [address] [id number] [place] [address]- 2427 Jan, [facility] [address] [id number] [place] [address]- 5960 Jan, [facility] [address] [id number] [place] [address]- 3176 Jan, [facility] [address] [id number] [place] [address]- 9403 Jan, [facility] [address] [id number] [place] [address]- 4699 Jan, [facility] [address] [id number] [place] [address]- 2174 Jan, [facility] [address] [id number] [place] [address]- 0278 Dec, [facility] [address] [id number] [place] [address]- 4263 Dec, [facility] [address] [id number] [place] [address]- 4385 Dec, [facility] [address] [id number] [place] [address]- 0632 Dec, [facility] [address] [id number] [place] [address]- 4722 2013 [facility] [address] [id number] [place] [address]- 9224 Dec, [facility] [address] [id number] [place] [address]- 4710 Dec, [facility] [address] [id number] [place] [address]- 7730 Dec, [facility] [address] [id number] [place] [address]- 3230 29 Nov, 2013 [facility] [address] [id number] [place] [address]- 2838 Nov, [facility] [address] [id number] [place] [address]- 5831 Nov, [facility] [address] [id number] [place] [address]- 5484 Nov, [facility] [address] [id number] [place] [address]- 6432 Nov, [facility] [address] [id number] [place] [address]- 4230 Nov, [facility] [address] [id number] [place] [address]- 2485 Nov, [facility] [address] [id number] [place] [address]- 3639 Nov, [facility] [address] [id number] [place] [address]- 0371 Nov, [facility] [address] [id number] [place] [address]- 4992 Nov, [facility] [address] [id number] [place] [address]- 7445 Nov, [facility] [address] [id number] [place] [address]- 9495 Nov, [facility] [address] [id number] [place] [address]- 8063 Nov, [facility] [address] [id number] [place] [address]- 1635 Oct, [facility] [address] [id number] [place] [address]- 3819 Oct, [facility] [address] [id number] [place] [address]- 2757 Oct, [facility] [address] [id number] [place] [address]- 8401 Oct, [facility] [address] [id number] [place] [address]- 6930 Oct, [facility] [address] [id number] [place] [address]- 6327 Oct, [facility] [address] [id number] [place] [address]- 5142 Oct, [facility] [address] [id number] [place] [address]- 2622 Oct, [facility] [address] [id number] [place] [address]- 7727 Oct, [facility] [address] [id number] [place] [address]- 5853 Oct, [facility] [address] [id number] [place] [address]- 9016 Oct, [facility] [address] [id number] [place] [address]- 6332 Oct, [facility] [address] [id number] [place] [address]- 2787 Oct, [facility] [address] [id number] [place] [address]- 3839 Oct, [facility] [address] [id number] [place] [address]- 5710 Sep, [facility] [address] [id number] [place] [address]- 2085 Sep, [facility] [address] [id number] [place] [address]- 7608 Sep, [facility] [address] [id number] [place] [address]- 7368 05 Sep, 2013 [facility] [address] [id number] [place] [address]- 1130 Sep, [facility] [address] [id number] [place] [address]- 3916 Sep, [facility] [address] [id number] [place] [address]5 Sep, [facility] [address] [id number] [place] [address]- 6031 Sep, [facility] [address] [id number], [place] [address]- 8712 Sep, [facility] [address] [id number] [place] [address]- 6195 Sep, [facility] [address] [id number] [place] [address]- 4624 Aug, [facility] [address] [id number], [place] [address]- 5432 Aug, [facility] [address] [id number], [place] [address]- 0337 Aug, [facility] [address] [id number], [place] [address]- 1666 Aug, [facility] [address] [id number], [place] [address]- 0257 Aug, [facility] [address] [id number], [place] [address]- 6271 Aug, [facility] [address] [id number], [place] [address]- 3554 Aug, [facility] [address] [id number], [place] [address]- 3269 Aug, [facility] [address] [id number], [place] [address]- 7509 Aug, [facility] [address] [id number], [place] [address]- 7621 Aug, [facility] [address] [id number] [place] [address]- 2675 18 Aug, 2012 [facility] [address] [id number] [place] [address]- 8533 18 Aug, 2013 [facility] [address] [id number] [place] [address]- 2097 18 Aug, 2013 [facility] [address] [id number] [place] [address]- 5502 18 Aug, 2013 [facility] [address] [id number] [place] [address]- 8420 17 Aug, 2013 [facility] [address] [id number] [place] [address]- 9310 14 Aug, 2013 [facility] [address] [id number] [place] [address]- 4963 14 Aug, 2013 [facility] [address] [id number] [place] [address]- 7121 01 Aug, 2013 [facility] [address] [id number] [place] [address]- 9300 20 Jul, 2013 [facility] [address] [id number] [place] [address]- 0591 19 Jul, 2013 [facility] [address] [id number] [place] [address]- 5162 18 Jul, 2013 [facility] [address] [id number] [place] [address]- 3302 11 Jul, 2013 [facility] [address] [id number] [place] [address]- 3556 11 Jul, 2013 [facility] [place] [address] [id number] [place] [address]- 7621 Jun, [facility] [place] [facility] [address] [id number] [place] [address]- 5560 Jun, [facility] [place] [facility] [address] [id number] [place] [address]- 7263 Jun, [facility] [place] [facility] [address] [id number] [place] [address]- 6213 Jun, [facility] [place] [facility] [address] [id number] [place] [address]- 2332 Jun, [facility] [place] [facility] [address] [id number] [place] [address]- 6930 Jun, [facility] [place] [facility] [address] [id number] [place] [address]- 1897 Jun, [facility] [place] [facility] [address] [id number] [place] [address]- 8627 Jun, [facility] [place] [facility] [address] [id number] [place] [address]- 5780 Jun, [facility] [place] [facility] [address] [id number] [place] [address]- 7328 Jun, [facility] [place] [facility] [address] [id number] [place] [address]- 6694 May, [facility] [place] [facility] [address] [id number] [place] [address]- 9545 May, [facility] [place] [facility] [address] [id number] [place] [address]- 7882 May, [facility] [place] [facility] [address] [id number] [place] [address]- 6272 May, [facility] [place] [facility] [address] [id number] [place] [address]- 1831 May, [facility] [place] [facility] [address] [id number] [place] [address]- 1645 May, [facility] [place] [facility] [address] [id number] [place] [address]- 1737 May, [facility] [place] [facility] [address] [id number] [place] [address]- 6898 May, [facility] [place] [facility] [address] [id number], [place] [address]- 5431 May, [facility] [address] [id number] [place] [address]- 4172 Apr, [facility] [place] [facility] [address] [id number] [place] [address]- 7518 Apr, [facility] [address] [id number] [place] [address]- 4553 Apr, [facility] [address] [id number] [place] [address]- 3384 Apr, [facility] [address] [id number] [place] [address]- 4348 Apr, [facility] [address] [id number] [place] [address]- 7010 Apr, [facility] [address] [facility] [id number] [place] [address]- 0773 Apr, [facility] [address] [id number] [place] [address]- 7773 March, [facility] [address] [id number] [place] [address]- 2483 Feb, [facility] [address] [id number] [place] [address]- 2707 Feb, [facility] [address] [id number] [place] [address]- 9686 Feb, [facility] [place] [facility] [address] [id number], [place] [address]- 6917 28 Jan, 2013 [facility] [place] [facility] [address] [id number] [place] [address]- 1202 21 Jan, 2013 [facility] [place] [facility] [address] [id number] [place] [address]- 5954 19 Jan, 2013 [facility] [place] [facility] [address] [id number] [place] [address]- 9622 14 Jan, 2013 [facility] [place] [facility] [address] [id number] [place] [address]- 2837 12 Jan, 2013 [facility] [place] [facility] [address] [id number] [place] [address]- 6901 08 Jan, 2013 [facility] [place] [facility] [address] [id number] [place] [address]- 0619 07 Jan, 2013 [facility] [place] [facility] [address] [id number] [place] [address]- 0403 04 Jan, 2013 [facility] [place] [facility] [address] [id number] [place] [address]- 0090 28 Dec, 2012 [facility] [place] [facility] [address] [id number] [place] [address]- 8486 25 Dec, 2012 [facility] [place] [facility] [address] [id number] [place] [address]- 4637 13 Dec, 2012 [facility] [place] [facility] [address] [id number] [place] [address]- 7518 Dec, [facility] [place] [facility] [address] [id number] [place] [address]- 7708 07 Dec, 2012 [facility] [place] [facility] [address] [facility] [id number] [place] [address]- 6238 06 Dec, 2012 [facility] [place] [facility] [address] [facility] [id number] [place] [address]- 6918 05 Dec, 2012 [facility] [place] [facility] [address] [id number] [place] [address]- 1828 Nov, [facility] [place] [facility] [address] [id number] [place] [address] 24 Nov, 2012 [facility] [place] [facility] [address] [id number] [place] [address] 18 Nov, 2012 [facility] [place] [facility] [address] [id number] [place] [address] 15 Nov, 2012 [facility] [place] [facility] [address] [id number] [place] [address] Nov, [facility] [address] [id number] [place] [address] Nov, [facility] [place] [facility] [address] [id number] [place] [address] Nov, [facility] [address] [facility] [id number] [place] [address] Oct, [facility] [place] [facility] [address] [id number] [place] [address] Oct, [facility] [address] [id number] [place] [address] Oct, [facility] [place] [facility] [address] [id number] [place] [address] Oct, [facility] [address] [place] [id number] [place] [address] Oct, [facility] [place] [facility] [address] [id number] [place] [address]138 Oct, [facility] [address] [facility] [id number] [place] [address]- 2720 Oct, [facility] [place] [facility] [address] [facility] [id number] [place] [address]- 4[address] Oct, [facility] [place] [facility] [address] [facility] [id number] [place] [address] 4928 Oct, [facility] [place] [facility] [address] [id number] [place] [address] 5920 Oct, [facility] [place] [facility] [address] [id number] [place] [address] 4035 Oct, [facility] [place] [facility] [address] [id number] [place] [address] 6824 Oct, [facility] [place] [facility] [address] [facility] [id number] [place] [address]- 2005 Sep, [facility] [place] [facility] [address] [id number] [place] [address] 8399 Sep, [facility] [place] [facility] [address] [id number] [place] [address]- 3147 Sep, [facility] [place] [facility] [address] [id number] [place] [address]- [address]91 Sep, [facility] [place] [facility] [address] [id number] [place] [address] 4183 Sep, [facility] [place] [facility] [address] [id number] [place] [address] 1961 Sep, [facility] [place] [facility] [address] [id number] [place] [address]- 6[address] Sep, [facility] [place] [facility] [address] [id number] [place] [address] 3138 Sep, [facility] [place] [facility] [address] [id number] [place] [address]- 3435 Sep, [facility] [place] [facility] [address] [id number] [place] [address] 9260 Sep, [facility] [place] [facility] [address] [id number] [place] [address]- 7804 Sep, [facility] [place] [facility] [address] [facility] [id number] [place] [address] 2426 Aug, [facility] [place] [facility] [address] [id number] [place] [address] 6199 Aug, [facility] [place] [facility] [address] [id number] [place] [address]- 1106 Aug, [facility] [place] [facility] [address] [id number] [place] [address]- 2944 Aug, [facility] [place] [facility] [address] [id number] [place] [address]- 7012 Aug, [facility] [place] [facility] [address] [id number] [place] [address]- 6718 Aug, [facility] [place] [facility] [address] [id number] [place] [address]- 0328 Aug, [facility] [place] [facility] [address] [id number] [place] [address]- 7151 Aug, [facility] [place] [facility] [address] [id number] [place] [address]- 6971 Aug, [facility] [place] [facility] [address] [id number] [place] [address]- 3429 Aug, [facility] [place] [facility] [address] [id number] [place] [address]- 8216 Jul, [facility] [place] [facility] [address] [id number] [place] [address]- 1614 Jul, [facility] [place] [facility] [address] [id number] [place] [address]- 8426 Jul, [facility] [place] [facility] [address] [id number] [place] [address]- 1206 Jul, [facility] [place] [facility] [address] [id number] [place] [address]- 0671 Jun, [facility] [place] [facility] [address] [id number] [place] [address]- 0201 Jun, [facility] [place] [facility] [address] [id number] [place] [address]- 0427 Jun, [facility] [place] [facility] [address] [id number], [place] [address]- [address] Jun, [facility] [place] [facility] [address] [id number] [place] [address]- 7947 Jun, [facility] [place] [facility] [address] [id number] [place] [address]- 7039 Jun, [facility] [place] [facility] [address] [id number] [place] [address]- 9533 Jun, [facility] [place] [facility] [address] [id number] [place] [address]- 6016 24 May, 2012 [facility] [place] [facility] [address] [id number] [place] [address]- 6115 May, [facility] [place] [facility] [address] [id number] [place] [address]- 1506 May, [facility] [place] [facility] [address] [id number] [place] [address]- 5534 May, [facility] [place] [facility] [address] [id number] [place] [address]- 7730 May, [facility] [place] [facility] [address] [id number] [place] [address]- 9093 Apr, [facility] [place] [facility] [address] [id number] [place] [address]- 3816 Apr, [facility] [place] [facility] [address] [id number] [place] [address]- 5316 Apr, [facility] [place] [facility] [address] [id number] [place] [address]- 0722 Apr, [facility] [place] [facility] [address] [id number] [place] [address]- 5900 Apr, [facility] [place] [facility] [address] [id number] [place] [address]- 2368 March, [facility] [place] [facility] [address] [id number] [place] [address]- 1723 March, [facility] [place] [facility] [address] [id number] [place] [address]- 6012 March, [facility] [place] [facility] [address] [id number] [place] [address]- 4585 March, [facility] [place] [facility] [address] [id number] [place] [address]- 5415 March, [facility] [place] [facility] [address] [id number] [place] [address]- 2378 March, [facility] [place] [facility] [address] [id number] [place] [address]- 9332 March, [facility] [address] [id number] [place] [address]- 7309 March, [facility] [place] [facility] [address] [id number] [place] [address]- 8390 March, [facility] [address] [id number] [place] [address]- 2570 March, [facility] [address] [id number] [place] [address]- 2997 Feb, [facility] [place] [facility] [address] [id number] [place] [address]- 4081 Feb, [facility] [address] [id number] [place] [address]- 3826 Feb, [facility] [address] [id number] [place] [address]- [id number] Feb, [facility] [address] [id number] [place] [address] Feb, [facility] [place] [facility] [address] [id number] [place] [address] Feb, [facility] [place] [facility] [address] [id number] [place] [address] Feb, [facility] [place] [facility] [address] [id number] [place] [address] Feb, [facility] [place] [facility] [address] [id number] [place] [address] Feb, [facility] [place] [facility] [address] [id number] [place] [address] Jan, [facility] [place] [facility] [address] [id number] [place] [address] Jan, [facility] [place] [facility] [address] [id number] [place] [address] Jan, [facility] [address] [id number] [place] [address] Jan, [facility] [address] [id number] [place] [address] Dec, [facility] [address] [id number] [place] [address] Dec, [facility] [address] [id number] [place] [address] Nov, [facility] [address] [id number] [place] [address] Nov, [facility] [address] [id number] [place] [address] Nov, [facility] [address] [id number] [place] [address] Nov, [facility] [address] [id number] [place] [address] Nov, [facility] [address] [id number] [place] [address] Oct, [facility] [address] [id number] [place] [address] Oct, [facility] [address] [id number] [place] [address] Oct, [facility] [place] [facility] [address] [id number] [place] [address] Oct, [facility] [place] [facility] [address] [id number] [place] [address] Oct, [facility] [place] [facility] [address] [id number] [place] [address] Oct, [facility] [place] [facility] [address] [id number] [place] [address] Oct, [facility] [place] [facility] [address] [facility] [id number] [place] [id number] Oct, [facility] [place] [address] [facility] [id number] [place] [address] Sep, IMMUNIZATIONS No Known Immunizations SOCIAL HISTORY Never Assessed REASON FOR VISIT Percocet PLAN OF CARE VITAL SIGNS MEDICATIONS No Known Medications RESULTS No Results PROCEDURES No Known procedures INSTRUCTIONS MEDICATIONS ADMINISTERED No Known Medications MEDICAL (GENERAL) HISTORY Type Description Date 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
--- OUTSIDE RECORDS SUMMARY | 2018-09-04 11:40 | XMS REPORT ---
Author Author SHAHNAZ MARQUEZ [facility] Address [address] [place] [address] Care Team Providers Care Eyewear Consultant Name Role Phone SHAHNAZ MARQUEZ Unavailable PROBLEMS Type Condition ICD9-CM Code [id number] Code Onset Dates Condition Status SNOMED Code Problem Low back pain M54.5 Active 399548986 Problem Ventral hernia without obstruction or gangrene K43.9 Active 768901397 Problem Type 2 diabetes mellitus without complication, without long-term current use of insulin E11.9 Active 598318551 Problem Hypertension I10 Active 73520871 Problem Coronary artery disease I25.10 Active 25139236 Problem Hyperlipidemia E78.5 Active 90503456 Problem Other chronic pain G89.29 Active 48188831 Problem Paroxysmal atrial fibrillation I48.0 Active 681325964 Problem Insomnia G47.00 Active 718521220 Problem Pharyngeal dysphagia R13.13 Active [id number] Problem Reactive depression F32.9 Active 43323344 Problem Peripheral vascular disease I73.9 Active 090154856 Problem Anxiety F41.9 Active 87896602 ALLERGIES No Information ENCOUNTERS Encounter Location Date Diagnosis [facility] [place] [address] [address] Jun, Other chronic pain G89.29 [facility] [place] [id number] [place] [address] 92052- 8735 Jun, Via [facility] [address] [place] [id number] May, Anxiety F41.9 ; Type 2 diabetes mellitus without complication, without long-term current use of insulin E11.9 ; Hypertension I10 ; Low back pain M54.5 ; Paroxysmal atrial fibrillation I48.0 and 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 [facility] [place] [id number] [place] [address]7439- 5812 May, Other chronic pain G89.29 Via [employer] [address] [place] [id number] May, Low back pain M54.5 [facility] [place] [address] [id number] [address] May, [facility] [place] [address] [facility] [id number] [address] Apr, Other chronic pain G89.29 [facility] [place] [address] [id number], [place] [address] 89[address] Apr, [facility] [place] [address] [facility] [id number] [place] [address] 21560- 8826 Apr, Via [employer] [address] [place] [id number] Apr, Closed compression fracture of L3 lumbar vertebra with routine healing, subsequent encounter S32.030D [facility] [address] [place] [id number] 14 Apr, 2018 Low back pain M54.5 Via [employer] [address] [place] [id number] Apr, Coccydynia M53.3 [facility] [place] [address] [facility] [id number] [address] March, [facility] [place] [address] [facility] [id number] [address] March, Other chronic pain G89.29 [facility] [place] [address] [facility] [id number] [address] March, [facility] [place] [address] [facility] [id number], [place] [address] 88[address] March, [facility] [place] [address] [facility] [id number][place] [address] 8[address] Feb, [facility] [place] [address] [facility] [id number] [address] 2517 Feb, Other chronic pain G89.29 Via [employer] [address] [place] [id number] Feb, Other chronic pain G89.29 and Anxiety F41.9 [facility] [place] [id number] [place] [address] 13277- 3287 Feb, [facility] [place] [id number] [place] [address] 97910- 7776 Jan, [facility] [place] [id number] [place] [address] 36634- 8149 Jan, [facility] [place] [id number] [place] [address] 32188- 0585 Jan, [facility] [place] [id number] [place] [address] 24976- 0508 Jan, [facility] [place] [id number] [place] [address] 86309- 7049 Dec, Via [facility] [employer] [facility] [address] [place] [id number] Dec, Peripheral vascular disease I73.9 ; 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 ; Other chronic pain G89.29 ; Anxiety F41.9 ; Reactive depression F32.9 ; Insomnia G47.00 and Type 2 diabetes mellitus without complication, without long-term current use of insulin E11.9 [facility] ADRIENNE SANCHEZ [id number] [place] [address] Nov [facility] [id number] [place] [id number] Nov, Anxiety F41.9 [facility] [place] [address] [address] Nov, [facility] [id number] [place] [id number] Nov, Anxiety F41.9 Via [employer] [employer] [facility] [address] [place] [id number] Nov, Status post surgery Z98.890 ; Confused R41.0 ; Anxiety F41.9 and Other chronic pain G89.29 [facility] [address] [id number] [address] Nov, Other chronic pain G89.29 [facility] [place] [address] [facility] [id number] [address]46 Oct, [facility] [id number] [id number] Oct, Other chronic pain G89.29 [facility] [place] [address] [facility] [id number] [address] Oct, Anxiety F41.9 [facility] [id number] [place] [address] [id number] Sep, Other chronic pain G89.29 [facility] [id number] [place] [id number] Sep, Via [facility] [address] [facility] [place] [id number] Aug, Dysuria R30.0 and Anxiety F41.9 [facility] [place] [address] [address] Aug, [facility] [id number] [place] [address] [id number] Aug, Other chronic pain G89.29 [facility] [place] [address], [place] [address] Jul, Other chronic pain G89.29 [facility] [id number] [id number] Jun, [facility] [id number] [id number] Jun, Other chronic pain G89.29 [facility] [place] [address], [place] [address] 2546 Jun, [facility] [place] [address], [place] [address] 1441 May, Other chronic pain G89.29 [facility] [place] [address], [place] [address] 3263 Apr, Other chronic pain G89.29 Via [employer] [facility] [address] [place] [id number] Apr, Reactive depression F32.9 and Pharyngeal dysphagia R13.13 [facility] [place] [address] [address] Apr, Urinary tract infection without hematuria, site unspecified N39.0 [facility] [place] [address] [id number] [address] 6[address] March, Other chronic pain G89.29 [facility] [place] [id number] [place] [address] 80837- 7911 Feb, Other chronic pain G89.29 [facility] [place] [address] [address] 8375 Feb, [facility] [id number] [place] [address] [id number] Feb, Via [employer] [facility] [address] [place] [id number] Feb, Dysuria R30.0 and Ventral hernia without obstruction or gangrene K43.9 [facility] [place] [address] [address]- 2464 Jan, Other chronic pain G89.29 [facility] [id number], [place] [id number] Dec, Other chronic pain G89.29 [facility] [place] [address] [id number] [address] 1451 Nov, Other chronic pain G89.29 [facility] [employer] [facility] [address] [place] [id number] Nov, Lymphadenitis I88.9 [facility] [place] [address] [id number] [address]- 6855 Nov, Other chronic pain G89.29 [facility] [place] [id number] [place] [address] 17427- 1325 Nov, [facility] [place] [facility] [id number] [place] [id number] Nov, Other chronic pain G89.29 Via [facility] [address] [place] [id number] Oct, Low back pain M54.5 ; Hypertension I10 and Type 2 diabetes mellitus without complication, without long-term current use of insulin E11.9 [facility] [place] [id number] [place] [address] 77060- 7548 Oct, [facility] [place] [id number] [place] [address] 78973- 0984 Oct, [facility] [place] [id number] [place] [address] 85993- 5819 Oct, [facility] [place] [id number] [place] [address] 62998- 5758 Oct, [facility] [place] [id number] [place] [address] 40387- 2996 Sep, [facility] [place] [id number] [place] [address] 92253- 8005 Sep, [facility] [place] [id number] [place] [address] 42672- 9669 Aug, Other chronic pain G89.29 [facility] [place] [id number] [place] [address] 55741- 7960 Jul, [facility] [place] [address] [id number] [address]- 3756 Jul, [facility] [place] [id number] [place] [address] 36245- 7128 Jul, [facility] [place] [address] [address] 3005 Jun, [facility] [place] [address] [place] [address] 73878- 6670 Jun, Via [facility] [address] [place] [id number] Jun, Low back pain M54.5 ; Other chronic pain G89.29 and Coronary artery disease I25.10 [facility] [place] [address] [address]- 0393 Jun, [facility] [place] [id number] [place] [address] 57340- 8134 May, [facility] [place] [id number] [place] [address] 23789- 2581 May, [facility] [place] [id number] [place] [address] 92145- 8608 May, Other chronic pain G89.29 [facility] [place] [id number] [place] [address] 30707- 8059 May, [facility] [place] [id number] [place] [address] 38808- 2021 Apr, [facility] [place] [id number] [place] [address] 16616- 5150 Apr, Acute cystitis without hematuria N30.00 [facility] [place] [id number] [place] [address] 68800- 9895 Apr, Acute cystitis without hematuria N30.00 ; Coronary artery disease I25.10 ; Low back pain M54.5 and Other chronic pain G89.29 [facility] [place] [address] [place] [address] 39134- 9747 Apr, Other chronic pain G89.29 [facility] [place] [address] [id number] [address]- 4467 March, Other chronic pain G89.29 [facility] [place] [id number] [place] [address] 00663- 2799 Feb, [facility] [place] [id number] [place] [address] 18724- 5587 Feb, Arthritis M19.90 [facility] [place] [address], [place] [address]- 2590 Feb, [facility] [place] [id number] [place] [address] 81963- 3226 Jan, [facility] [place] [address], [place] [address] 2546 Jan, [facility] [place] [id number] [place] [address] 89504- 7966 Jan, Other chronic pain G89.29 [facility] [place] [address] [place] [address] 26784- 1719 Jan, Hypertension I10 ; Coronary artery disease I25.10 and Insomnia G47.00 [facility] [place] [address] [address]- 1036 Jan, [facility] [place] [id number] [place] [address] 90779- 0111 Dec, Right hip pain M25.551 [facility] [place] [address] [address]- 5441 Dec, [facility] [place] [address], [place] [address]- 7296 Dec, [facility] [place] [address], [place] [address]- 3006 Dec, [facility] [place] [address], [place] [address] 2547 Dec, Other chronic pain G89.29 [facility] [place] [address], [place] [address] 2546 Dec, [facility] [place] [address], [place] [address] 2541 Nov, [facility] [place] [address], [place] [address] 2546 Nov, Other chronic pain G89.29 [facility] [place] [id number] [place] [address] 47954- 6029 Nov, Right hip pain M25.551 and Coronary artery disease I25.10 [facility] [place] [id number] [place] [address] 69991- 7839 Nov, Other chronic pain G89.29 [facility] [place] [id number] [place] [address] 96326- 0573 Oct, [facility] [place] [id number] [place] [address] 51539- 5392 Oct, [facility] [place] [address] 85323- 7861 Sep, [facility] [place] [id number] [place] [address] 53245- 5235 Sep, [facility] [place] [address] 98092- 2252 Aug, [facility] [place] [id number] [place] [address] 53429- 0358 Aug, Hypertension I10 ; Coronary artery disease I25.10 and Arthritis M19.90 [facility] [place] [id number] [place] [address] 37574- 6891 Jun, [facility] [place] [id number] [place] [address] 24112- 9854 Jun, Essential hypertension, benign 401.1 ; Other chronic pain 338.29 and Chronic airway obstruction, not elsewhere classified 496 [facility] [place] [id number] [place] [address] 70248- 4938 Jun, [facility] [place] [id number] [place] [address] 66872- 8185 Jun, [facility] [place] [id number] [place] [address] 73341- 8307 Jun, [facility] [place] [id number] [place] [address] 38809- 8694 May, [facility] [address] [id number] [place] [address]- 3014 May, [facility] [address] [id number] [place] [address]- 7579 Apr, [facility] [address] [id number] [place] [address]- 3362 Apr, [facility] [address] [id number] [place] [address]- 8371 Apr, [facility] [address] [id number] [place] [address]- 4439 March, [facility] [address] [id number] [place] [address]- 4765 March, [facility] [place] [address] [id number] [place] [address]- 0531 March, [facility] [address] [id number] [place] [address]- 2151 March, [facility] [place] [address] [id number] [place] [address]- 1245 March, Sialadenitis 527.2 [facility] [place] [address] [id number] [place] [address]- 9919 Feb, [facility] [place] [address] [id number] [place] [address]- 3277 Feb, [facility] [address] [id number] [place] [address]- 4398 Feb, [facility] [address] [id number] [place] [address]- 0783 14 Feb, 2015 [facility] [address] [id number] [place] [address]- 9946 Feb, [facility] [place] [address] [id number] [place] [address]- 8771 Jan, [facility] [place] [facility] [address] [id number] [place] [address]- 3613 Jan, [facility] [place] [facility] [address] [id number] [place] [address]- 1070 Jan, [facility] [place] [facility] [address] [id number] [place] [address] Jan, [facility] [place] [facility] [address] [id number] [place] [address] Jan, [facility] [place] [facility] [address] [id number] [place] [address] Jan, [facility] [place] [facility] [address] [id number] [place] [address] Dec, 2014 [facility] [place] [facility] [address] [facility] [id number] [place] [address] Dec, 2014 [facility] [place] [facility] [address] [id number] [place] [address] Dec, 2014 [facility] [place] [facility] [address] [facility] [id number] [place] [address] Dec, [facility] [place] [facility] [address] [facility] [id number] [place] [address] Dec, [facility] [place] [facility] [address] [facility] [id number] [place] [address] Dec, [facility] [place] [facility] [address] [id number] [place] [address] Nov, [facility] [place] [facility] [address] [id number] [place] [address] Nov, [facility] [place] [facility] [address] [id number] [place] [address] Nov, [facility] [place] [facility] [address] [facility] [id number] [place] [address] Nov, [facility] [place] [facility] [address] [facility] [id number] [address] Nov, [facility] [address] [id number] [place] [address] Nov, [facility] [place] [facility] [address] [id number] [place] [address] Nov, [facility] [place] [facility] [address] [facility] [id number] [place] [address] Nov, [facility] [place] [facility] [address] [id number] [place] [address] Nov, [facility] [address] [id number] [place] [address] Nov, [facility] [place] [facility] [address] [id number] [place] [address] Nov, [facility] [address] [facility] [id number] [place] [address] Nov, [facility] [address] [id number] [place] [address] Nov, [facility] [address] [id number] [place] [address] Nov, [facility] [address] [facility] [id number] [place] [address] Oct, [facility] [address] [id number] [place] [address] Oct, [facility] [place] [facility] [address] [id number], [place] [address] Oct, [facility] [place] [facility] [address] [id number] [place] [address] 18 Oct, 2014 [facility] [place] [facility] [address] [id number] [place] [address] 18 Oct, 2014 [facility] [place] [facility] [address] [facility] [id number] [place] [address] 17 Oct, 2014 [facility] [place] [facility] [address] [id number] [place] [address] 17 Oct, 2014 [facility] [place] [facility] [address] [id number] [place] [address] Oct, [facility] [place] [facility] [address] [id number] [place] [address] Oct, [facility] [place] [facility] [address] [id number] [place] [address] Sep, [facility] [place] [facility] [address] [id number] [place] [address] Sep, [facility] [place] [facility] [address] [id number] [place] [address] Sep, [facility] [place] [facility] [address] [id number] [place] [address] Sep, [facility] [place] [facility] [address] [id number] [place] [address] 0609 Sep, [facility] [place] [facility] [address] [id number] [place] [address] 5846 Sep, [facility] [place] [facility] [address] [id number] [place] [address] 0530 Sep, [facility] [place] [facility] [address] [id number] [place] [address] 5198 Sep, [facility] [place] [facility] [address] [id number] [place] [address]- 5025 Sep, [facility] [place] [facility] [address] [id number] [place] [address]- 3437 Sep, [facility] [place] [facility] [address] [id number] [place] [address]- 7176 Sep, [facility] [place] [facility] [address] [id number] [place] [address]- 1647 Sep, [facility] [place] [facility] [address] [id number] [place] [address]- 6541 30 Aug, 2014 [facility] [place] [facility] [address] [id number] [place] [address]- 6977 30 Aug, 2014 [facility] [place] [facility] [address] [id number] [place] [address]- 5796 29 Aug, 2014 [facility] [place] [facility] [address] [id number] [place] [address]- 3106 29 Aug, 2014 [facility] [place] [facility] [address] [id number] [place] [address]- 3772 Aug, [facility] [place] [facility] [address] [id number] [place] [address]- 8684 28 Aug, 2014 [facility] [place] [facility] [address] [id number] [place] [address]- 4178 Aug, [facility] [place] [facility] [address] [id number] [place] [address]- 7060 Aug, [facility] [place] [facility] [address] [id number] [place] [address]- 5389 30 Sep, 2013 [facility] [place] [facility] [address] [id number] [place] [address]- 5646 30 Sep, 2013 [facility] [place] [facility] [address] [id number] [place] [address]- 6682 30 Sep, 2013 [facility] [place] [facility] [address] [id number], [place] [address]- 1007 30 Sep, 2013 [facility] [place] [facility] [address] [id number], [place] [address]- 2548 25 Sep, 2013 [facility] [place] [facility] [address] [id number] [place] [address]- 2546 25 Sep, 2013 [facility] [place] [facility] [address] [id number], [place] [address]- 4[address] 15 Sep, 2013 [facility] [place] [facility] [address] [id number] [place] [address]- 2546 15 Sep, 2013 [facility] [place] [facility] [address] [id number] [place] [address]- 1163 Jul, [facility] [place] [facility] [address] [id number] [place] [address]- 9032 Jul, [facility] [place] [facility] [address] [id number] [place] [address]- 5668 Jun, [facility] [place] [facility] [address] [id number] [place] [address]- 9647 Jun, [facility] [place] [facility] [address] [id number] [place] [address]- 0421 Jun, [facility] [place] [facility] [address] [id number] [place] [address]- 8214 Jun, [facility] [place] [facility] [address] [id number] [place] [address]- 1584 Jun, [facility] [place] [facility] [address] [id number] [place] [address]- 3016 Jun, [facility] [place] [facility] [address] [id number] [place] [address]- 5034 Jun, [facility] [place] [facility] [address] [id number] [place] [address]- 5210 Jun, [facility] [place] [facility] [address] [id number] [place] [address]- 6061 Jun, [facility] [place] [facility] [address] [id number] [place] [address]- 4424 Jun, [facility] [place] [facility] [address] [id number] [place] [address]- 6422 Jun, [facility] [place] [facility] [address] [id number] [place] [address]- 5269 Jun, [facility] [place] [facility] [address] [id number] [place] [address]- 3715 Jun, [facility] [place] [facility] [address] [id number] [place] [address]- 0939 Jun, [facility] [place] [facility] [address] [id number] [place] [address]- 7398 Jun, [facility] [place] [facility] [address] [id number] [place] [address]- 4751 Jun, [facility] [place] [facility] [address] [id number] [place] [address]- 4979 Jun, [facility] [place] [facility] [address] [id number] [place] [address]- 8260 Jun, [facility] [place] [facility] [address] [id number] [place] [address]- 0787 Jun, [facility] [place] [facility] [address] [id number] [place] [address]- 9876 Jun, [facility] [place] [facility] [address] [id number] [place] [address]- 3177 Jun, [facility] [place] [facility] [address] [id number] [place] [address]- 2412 Jun, [facility] [place] [facility] [address] [id number] [place] [address]- 2000 May, [facility] [place] [facility] [address] [id number] [place] [address]- 7342 May, [facility] [place] [facility] [address] [id number] [place] [address]- 7486 May, [facility] [place] [facility] [address] [id number] [place] [address]- 7630 May, [facility] [place] [facility] [address] [id number] [place] [address]- 9065 May, [facility] [place] [facility] [address] [id number] [place] [address]- 4247 May, [facility] [place] [facility] [address] [id number] [place] [address]- 1063 May, [facility] [place] [facility] [address] [id number] [place] [address]- 3963 May, [facility] [place] [facility] [address] [id number] [place] [address]- 2661 May, [facility] [place] [facility] [address] [id number] [place] [address] May, [facility] [place] [facility] [address] [id number] [place] [address]- 3930 May, [facility] [place] [facility] [address] [id number] [place] [address]- 6999 May, [facility] [place] [facility] [address] [id number] [place] [address]- 6807 May, [facility] [place] [facility] [address] [id number] [place] [address]- 6616 Apr, [facility] [place] [facility] [address] [id number] [place] [address]- 0447 Apr, [facility] [place] [facility] [address] [id number] [place] [address]- 7911 Apr, [facility] [place] [facility] [address] [id number] [place] [address]- 6278 Apr, [facility] [place] [facility] [address] [id number] [place] [address]- 5165 Apr, [facility] [place] [facility] [address] [id number] [place] [address]- 9561 Apr, [facility] [place] [facility] [address] [id number] [place] [address]- 4375 Apr, [facility] [place] [facility] [address] [id number] [place] [address]- 7933 Apr, [facility] [place] [facility] [address] [id number] [place] [address]- 9935 Apr, [facility] [place] [facility] [address] [id number] [place] [address]- 9728 March, [facility] [place] [facility] [address] [id number] [place] [address]- 3024 March, [facility] [address] [id number] [place] [address]- 2877 March, [facility] [address] [id number] [place] [address]- 4508 March, [facility] [address] [id number] [place] [address]- 2446 March, [facility] [address] [id number] [place] [address]- 0462 March, [facility] [address] [id number] [place] [address]- 2520 March, [facility] [address] [id number] [place] [address]- 3426 March, [facility] [address] [id number] [place] [address]- 0502 March, [facility] [address] [id number] [place] [address]- 0041 March, [facility] [address] [id number] [place] [address]- 3096 March, [facility] [address] [id number] [place] [address]- 5652 March, [facility] [address] [id number] [place] [address]- 7510 March, [facility] [address] [id number] [place] [address]- 4372 March, [facility] [place] [facility] [address] [id number] [place] [address]- 2811 March, [facility] [address] [id number] [place] [address]- 2359 March, [facility] [address] [id number] [place] [address]163 March, [facility] [place] [facility] [address] [id number] [place] [address]- 0067 March, [facility] [place] [facility] [address] [id number] [place] [address]- 5945 March, [facility] [place] [facility] [address] [id number] [place] [address]- 1693 March, [facility] [place] [facility] [address] [id number] [place] [address]- 8670 Feb, [facility] [place] [facility] [address] [id number] [place] [address]- 0064 Feb, [facility] [place] [facility] [address] [id number] [place] [address]- 0761 Feb, [facility] [place] [facility] [address] [id number] [place] [address]- 6321 Feb, [facility] [place] [facility] [address] [id number] [place] [address]- 1538 Feb, [facility] [place] [facility] [address] [id number] [place] [address]- 7230 Feb, [facility] [place] [facility] [address] [id number] [place] [address]- 4423 Feb, [facility] [place] [facility] [address] [id number] [place] [address]- 7421 Feb, [facility] [place] [facility] [address] [id number] [address]- 0148 Jan, [facility] [place] [facility] [address] [id number] [place] [address]- 9842 Jan, [facility] [place] [facility] [address] [id number] [place] [address]- 4199 Jan, [facility] [place] [facility] [address] [id number] [place] [address]- 1542 Jan, [facility] [place] [facility] [address] [id number] [address]- 0036 13 Jan, 2014 [facility] [place] [facility] [address] [id number] [place] [address]- 1218 13 Jan, 2014 [facility] [place] [facility] [address] [id number] [place] [address]- 7490 Jan, [facility] [place] [facility] [address] [facility] [id number] [place] [address]- 4614 Jan, [facility] [place] [facility] [address] [id number] [place] [address]- 5727 Jan, [facility] [place] [facility] [address] [id number] [place] [address]- 1935 Jan, [facility] [place] [facility] [address] [id number] [place] [address]- 5240 27 Dec, 2013 [facility] [place] [facility] [address] [facility] [id number] [place] [address]- 5933 Dec, [facility] [place] [facility] [address] [facility] [id number] [place] [address]- 5203 Dec, [facility] [place] [facility] [address] [facility] [id number] [place] [address]- 6688 2013 [facility] [place] [facility] [address] [facility] [id number] [place] [address]- 3035 2013 [facility] [place] [facility] [address] [facility] [id number] [place] [address]- 5780 Dec, [facility] [place] [facility] [address] [facility] [id number] [place] [address]- 5393 Dec, [facility] [place] [facility] [address] [facility] [id number] [place] [address]- 5547 Dec, [facility] [place] [facility] [address] [facility] [id number] [place] [address]- 1572 Nov, [facility] [place] [facility] [address] [facility] [id number] [place] [address]- 0368 Nov, [facility] [place] [facility] [address] [id number] [place] [address]- 3411 Nov, [facility] [place] [facility] [address] [id number] [place] [address]- 8370 Nov, [facility] [place] [facility] [address] [id number] [place] [address]- 5248 Nov, [facility] [place] [facility] [address] [id number] [place] [address]- 3164 Nov, [facility] [place] [facility] [address] [id number] [place] [address]- 0111 Nov, [facility] [place] [facility] [address] [id number] [place] [address]- 4014 Nov, [facility] [place] [facility] [address] [id number] [place] [address]- 2137 Nov, [facility] [place] [facility] [address] [id number] [place] [address]- 4201 Nov, [facility] [place] [facility] [address] [id number] [place] [address]- 3220 Nov, [facility] [place] [facility] [address] [id number][place] [address]- 7292 Nov, [facility] [place] [facility] [address] [id number], [place] [address]- 3972 Nov, [facility] [place] [facility] [address] [id number], [place] [address]- 9647 Oct, [facility] [place] [facility] [address] [id number] [place] [address]- 0783 Oct, [facility] [place] [facility] [address] [id number] [place] [address]- 3184 Oct, [facility] [place] [facility] [address] [id number], [place] [address]- 8082 Oct, [facility] [place] [facility] [address] [id number][place] [address]- 2459 Oct, [facility] [address] [id number] [place] [address]- 3432 Oct, [facility] [address] [id number] [place] [address]- 2502 18 Oct, 2013 [facility] [address] [facility] [id number] [place] [address]- 3537 18 Oct, 2013 [facility] [address] [id number] [place] 8397 17 Oct, 2013 [facility] [address] [id number] [place] [address]- 2038 17 Oct, 2013 [facility] [address] [facility] [id number] [place] 7311 Oct, [facility] [address] [id number] [place] [address]- 1317 Oct, [facility] [address] [facility] [id number] [place] [address]- 9340 Oct, [facility] [address] [id number] [place] [address]- 0010 Oct, [facility] [address] [id number] [place] [address]- 0860 Sep, [facility] [address] [facility] [id number], [place] [address]- 9614 14 Sep, 2013 [facility] [place] [facility] [address] [id number], [place] [address]- 7222 05 Sep, 2013 [facility] [place] [facility] [address] [id number], [place] [address]- 2209 05 Sep, 2013 [facility] [place] [facility] [address] [facility] [id number], [place] [address]- 2934 Sep, [facility] [place] [facility] [address] [id number], [place] [address]- 9043 Sep, [facility] [place] [facility] [address] [id number] [place] [address]- 1839 Sep, [facility] [place] [facility] [address] [id number] [place] [address]- 4499 Sep, [facility] [place] [facility] [address] [id number] [place] [address]- 5861 Sep, [facility] [place] [facility] [address] [id number] [place] [address]- 2784 Sep, [facility] [place] [facility] [address] [id number] [place] [address]- 5722 Aug, [facility] [place] [facility] [address] [id number] [place] [address]- 0240 Aug, [facility] [place] [facility] [address] [id number] [place] [address]- 7258 Aug, [facility] [place] [facility] [address] [id number] [place] [address]- 9382 Aug, [facility] [place] [facility] [address] [id number] [place] [address]- 6185 Aug, [facility] [place] [facility] [address] [id number] [place] [address]- 7269 Aug, [facility] [place] [facility] [address] [id number] [place] [address]- 6785 Aug, [facility] [place] [facility] [address] [id number] [place] [address]- 8281 Aug, [facility] [place] [facility] [address] [id number] [place] [address]- 0062 Aug, [facility] [place] [facility] [address] [id number] [place] [address]- 8719 Aug, [facility] [place] [facility] [address] [id number] [place] [address]- 7830 Aug, [facility] [place] [facility] [address] [id number] [place] [address]- 7207 18 Aug, 2013 [facility] [place] [facility] [address] [id number] [place] [address]- 9820 18 Aug, 2013 [facility] [place] [facility] [address] [id number] [place] [address]- 5217 18 Aug, 2013 [facility] [place] [facility] [address] [id number] [place] [address]- 1195 17 Aug, 2013 [facility] [place] [facility] [address] [id number] [place] [address]- 1639 14 Aug, 2013 [facility] [place] [facility] [address] [id number] [place] [address]- 6176 14 Aug, 2013 [facility] [place] [facility] [address] [id number] [place] [address]- 7524 01 Aug, 2013 [facility] [place] [facility] [address] [id number] [place] [address]- 9577 20 Jul, 2013 [facility] [place] [facility] [address] [id number] [place] [address]- 3799 19 Jul, 2013 [facility] [place] [facility] [address] [id number] [place] [address]- 2745 18 Jul, 2013 [facility] [place] [facility] [address] [id number] [place] [address]- 8987 11 Jul, 2013 [facility] [place] [facility] [address] [id number], [place] [address]- 9710 11 Jul, 2013 [facility] [place] [facility] [address] [id number], [place] [address]- 8250 28 Jun, 2013 [facility] [place] [facility] [address] [id number] [place] [address]- 7095 Jun, [facility] [place] [facility] [address] [id number] [place] [address]- 0987 Jun, [facility] [place] [facility] [address] [id number] [place] [address]- 2363 15 Jun, 2013 [facility] [place] [facility] [address] [id number] [place] [address]- 6080 Jun, [facility] [place] [facility] [address] [id number] [place] [address]- 2222 Jun, [facility] [place] [facility] [address] [id number] [place] [address]- 7216 Jun, [facility] [place] [facility] [address] [id number] [place] [address]- 5810 Jun, [facility] [place] [facility] [address] [id number] [place] [address]- 5623 Jun, [facility] [place] [facility] [address] [id number] [place] [address]- 2188 Jun, [facility] [place] [facility] [address] [id number] [place] [address]- 8950 May, [facility] [place] [facility] [address] [id number] [place] [address]- 0410 May, [facility] [place] [facility] [address] [id number] [place] [address]- 5790 May, [facility] [place] [facility] [address] [id number] [place] [address]- 6635 May, [facility] [place] [facility] [address] [id number] [place] [address]- 6292 May, [facility] [place] [facility] [address] [id number] [place] [address]- 5355 May, [facility] [place] [facility] [address] [id number] [place] [address]- 4972 May, [facility] [place] [facility] [address] [id number] [place] [address] May, [facility] [place] [facility] [address] [id number] [place] [address] May, [facility] [place] [facility] [address] [id number] [place] [address] Apr, [facility] [place] [facility] [address] [id number] [place] [address] Apr, [facility] [address] [id number] [place] [address] Apr, [facility] [address] [id number] [place] [address] Apr, [facility] [address] [id number] [place] [address] Apr, [facility] [address] [id number] [place] [address] Apr, [facility] [address] [id number] [place] [address] Apr, [facility] [place] [facility] [address] [id number] [place] [address] March, [facility] [address] [id number] [place] [address] Feb, [facility] [address] [id number] [place] [address] Feb, [facility] [address] [id number] [place] [address] Feb, [facility] [address] [id number] [place] [address] Jan, [facility] [address] [id number] [place] [address] Jan, [facility] [address] [id number] [place] [address]- [address] Jan, [facility] [place] [facility] [address] [id number] [place] [address] 14 Jan, 2013 [facility] [place] [facility] [address] [id number] [place] [address]- [address] 12 Jan, 2013 [facility] [address] [id number] [place] [address]- [address] 08 Jan, 2013 [facility] [address] [id number] [place] [address] 07 Jan, 2013 [facility] [address] [id number] [place] [address]- [address] 04 Jan, 2013 [facility] [address] [id number] [place] [address] 28 Dec, 2012 [facility] [place] [facility] [address] [id number] [place] [address]- [address] 25 Dec, 2012 [facility] [address] [id number] [place] [address]- [address] 13 Dec, 2012 [facility] [address] [id number] [place] [address]- 1006 11 Dec, 2012 [facility] [address] [id number] [place] [address] 07 Dec, 2012 [facility] [address] [id number] [place] [address]- [address] 06 Dec, 2012 [facility] [address] [id number] [place] [address]- [address] 05 Dec, 2012 [facility] [address] [facility] [id number] [place] [address] Nov, [facility] [address] [id number] [place] [address] 24 Nov, 2012 [facility] [place] [facility] [address] [id number] [place] [address] 2540 18 Nov, 2012 [facility] [place] [facility] [address] [id number] [place] [address]- [address]394 15 Nov, 2012 [facility] [place] [facility] [address] [id number] [place] [address] 10 Nov, 2012 [facility] [place] [facility] [address] [id number] [address] 10 Nov, 2012 [facility] [place] [facility] [address] [id number] [place] [address] Nov, [facility] [place] [facility] [address] [id number] [place] [address] Oct, [facility] [place] [facility] [address] [id number] [place] [address] Oct, [facility] [place] [facility] [address] [id number] [place] [address] 46[address] Oct, [facility] [place] [facility] [address] [id number] [place] [address] Oct, [facility] [place] [facility] [address] [id number] [place] [address] 86[address] Oct, [facility] [address] [id number] [place] [address]- [address] Oct, [facility] [place] [facility] [address] [id number] [place] [address] Oct, [facility] [place] [facility] [address] [id number] [place] [address] Oct, [facility] [place] [facility] [address] [id number] [place] [address] Oct, [facility] [place] [facility] [address] [id number] [place] [address] Oct, [facility] [place] [facility] [address] [id number] [place] [address]- 6766 Oct, [facility] [place] [facility] [address] [id number] [place] [address]- [address] Oct, [facility] [place] [facility] [address] [id number] [place] [address]- 7946 Sep, [facility] [place] [facility] [address] [id number] [place] [address]346 Sep, [facility] [place] [facility] [address] [id number], [place] [address] Sep, [facility] [place] [facility] [address] [id number] [place] [address]- [address] Sep, [facility] [place] [facility] [address] [id number] [address] Sep, [facility] [place] [facility] [address] [facility] [id number] [place] [address]- [address]60 Sep, [facility] [place] [facility] [address] [id number][place] [address] Sep, [facility] [place] [facility] [address] [id number] [place] [address]- 3916 Sep, [facility] [place] [facility] [address] [id number], [place] [address] Sep, [facility] [place] [facility] [address] [facility] [id number], [place] [address]- [address] Sep, [facility] [place] [facility] [address] [id number], [place] [address] Sep, [facility] [place] [facility] [address] [id number], [place] [address] Aug, [facility] [place] [facility] [address] [id number][place] [address]- 6360 Aug, [facility] [place] [facility] [address] [id number][place] [address] 47[address] Aug, [facility] [place] [facility] [address] [id number], [place] [address]- [address] Aug, [facility] [place] [facility] [address] [id number], [place] [address]- 46[address] Aug, [facility] [place] [facility] [address] [facility] [id number][place] [address]- [address]12 Aug, [facility] [place] [facility] [address] [facility] [id number] [address] Aug, [facility] [place] [facility] [address] [id number] [place] [address] Aug, [facility] [place] [facility] [address] [id number] [place] [address] Aug, [facility] [place] [facility] [address] [id number] [place] [address] Aug, [facility] [place] [facility] [address] [id number] [place] [address] Jul, [facility] [place] [facility] [address] [id number] [place] [address] Jul, [facility] [place] [facility] [address] [id number] [place] [address] Jul, [facility] [place] [facility] [address] [id number] [place] [address] Jul, [facility] [place] [facility] [address] [id number] [place] [address] Jun, [facility] [place] [facility] [address] [id number] [place] [address] Jun, [facility] [place] [facility] [address] [id number] [place] [address] Jun, [facility] [place] [facility] [address] [id number] [place] [address] Jun, [facility] [place] [facility] [address] [id number] [place] [address] Jun, [facility] [place] [facility] [address] [id number] [place] [address] Jun, [facility] [place] [facility] [address] [id number] [place] [address] Jun, [facility] [place] [facility] [address] [id number] [place] [address] May, [facility] [place] [facility] [address] [id number] [place] [address] May, [facility] [place] [facility] [address] [id number] [place] [address] May, [facility] [place] [facility] [address] [id number] [place] [address]- [address] May, [facility] [place] [facility] [address] [id number] [place] [address] May, [facility] [place] [facility] [address] [id number] [place] [address]- [address] Apr, [facility] [place] [facility] [address] [id number] [place] [address]- [address] Apr, [facility] [place] [facility] [address] [id number] [place] [address] Apr, [facility] [place] [facility] [address] [id number] [place] [address]- [address] Apr, [facility] [place] [facility] [address] [id number] [place] [address]- [address] Apr, [facility] [place] [facility] [address] [id number] [place] [address] March, [facility] [place] [facility] [address] [id number] [place] [address] March, [facility] [place] [facility] [address] [id number] [place] [address] March, [facility] [place] [facility] [address] [id number] [place] [address] March, [facility] [place] [facility] [address] [id number] [place] [address]- [address] March, [facility] [place] [facility] [address] [id number] [place] [address] March, [facility] [place] [facility] [address] [id number] [place] [address] March, [facility] [place] [facility] [address] [id number] [place] [address]- [address] March, [facility] [address] [id number] [place] [address] March, [facility] [place] [facility] [address] [id number] [place] [address] March, [facility] [place] [facility] [address] [id number] [place] [address]- [address] Feb, [facility] [place] [facility] [address] [id number] [place] [address] Feb, [facility] [address] [id number] [place] [address]- [address] Feb, [facility] [place] [facility] [address] [id number] [place] [address]- [address] Feb, [facility] [address] [id number] [place] [address]- [address] Feb, [facility] [place] [facility] [address] [id number] [place] [address]- [address] Feb, [facility] [place] [facility] [address] [id number] [place] [address]- [address] Feb, [facility] [place] [facility] [address] [id number] [place] [address]- [address] Feb, [facility] [place] [facility] [address] [id number] [place] [address]- [address] Feb, [facility] [place] [facility] [address] [id number] [place] [address]- [address] Jan, [facility] [place] [facility] [address] [id number] [place] [address]- [address] Jan, [facility] [place] [facility] [address] [id number] [place] [address]- [address] 05 Jan, 2012 [facility] [place] [facility] [address] [facility] [id number] [place] [address]- [address] Jan, [facility] [place] [facility] [address] [id number] [place] [address]- [address] 29 Dec, 2011 [facility] [address] [id number] [place] [address]- [address] Dec, [facility] [place] [facility] [address] [id number] [place] [address] 31 Nov, 2011 [facility] [address] [id number] [place] [address] 25[address] Nov, [facility] [place] [facility] [address] [id number] [place] [address] 18 Nov, 2011 [facility] [place] [facility] [address] [id number] [place] [address] 16 Nov, 2011 [facility] [address] [id number] [place] [address]- [address] Nov, [facility] [address] [id number] [place] [address] 30 Oct, 2011 [facility] [address] [id number] [place] [address] Oct, [facility] [address] [id number] [place] [address] Oct, [facility] [address] [id number] [place] [address] 2546 Oct, [facility] [address] [id number] [place] [address] 25[address] Oct, [facility] [place] [facility] [address] [id number] [place] [address] 25[address] Oct, [facility] [place] [facility] [address] [id number] [place] [address] 2546 Oct, [facility] [place] [facility] [address] [id number] [place] [address]46 Oct, [facility] [place] [facility] [address] [id number] [place] [id number] Sep, IMMUNIZATIONS No Known Immunizations SOCIAL HISTORY [...]
--- OUTSIDE RECORDS SUMMARY | 2018-09-04 11:41 | XMS REPORT ---
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 Name Role Phone SHAHNAZ MARQUEZ Unavailable PROBLEMS Type Condition ICD9-CM Code OBO74-CY Code Onset Dates Condition Status SNOMED Code Problem Low back pain M54.5 Active 165486865 Problem Ventral hernia without obstruction or gangrene K43.9 Active 490872954 Problem Type 2 diabetes mellitus without complication, without long-term current use of insulin E11.9 Active 775769575 Problem Hypertension I10 Active 48536990 Problem Coronary artery disease I25.10 Active 53018945 Problem Hyperlipidemia E78.5 Active 73246791 Problem Other chronic pain G89.29 Active 30163932 Problem Paroxysmal atrial fibrillation I48.0 Active 127309690 Problem Insomnia G47.00 Active 608657410 Problem Pharyngeal dysphagia R13.13 Active [id number] Problem Reactive depression F32.9 Active 64642370 Problem Peripheral vascular disease I73.9 Active 211647633 Problem Anxiety F41.9 Active 45489234 ALLERGIES No Information ENCOUNTERS Encounter Location Date Diagnosis [facility] [address], [place] [address] Jun, Other chronic pain G89.29 [facility] [id number] [place] [address] 95840- 6503 Jun, [facility] [address] [place] [place] [id number] May, Anxiety F41.9 ; Type 2 diabetes mellitus without complication, without long-term current use of insulin E11.9 ; Hypertension I10 ; Low back pain M54.5 ; Paroxysmal atrial fibrillation I48.0 and 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 [facility] [id number] [place] [address] 65114- 5179 May, Other chronic pain G89.29 Via [employer] [facility] [address] [place] [id number] May, Low back pain M54.5 [facility] [address] [id number], [place] [address] May, [facility] [address] [facility] [id number], [place] [address] 78[address] Apr, Other chronic pain G89.29 [facility] [address] [id number], [place] [address] 1489 Apr, [facility] [address] [facility] [id number] [place] [address] 82569- 5159 Apr, Via [employer] [address] [place] [id number] Apr, Closed compression fracture of L3 lumbar vertebra with routine healing, subsequent encounter S32.030D [facility] [employer] [address] [place] [id number] 14 Apr, 2018 Low back pain M54.5 [facility] [employer] [address] [place] [id number] Apr, Coccydynia M53.3 [facility] [address] [facility] [id number], [place] [address] March, [facility] [address] [facility] [id number], [place] [address] March, Other chronic pain G89.29 [facility] [address] [facility] [id number], [place] [address] 8273 March, [facility] [address] [facility] [id number], [place] [address] 7[address] March, [facility] [address] [facility] [id number], [place] [address] 5110 Feb, [facility] [address] [facility] [id number], [place] [address] 3250 Feb, Other chronic pain G89.29 [facility] [employer] [address] [place] [id number] Feb, Other chronic pain G89.29 and Anxiety F41.9 [facility] [id number] [place] [address] 62278- 9075 Feb, [facility] [id number] [place] [address] 93002- 8687 Jan, [facility] [id number] [place] [address] 62393- 5406 Jan, [facility] [id number] [place] [address] 91018- 2507 Jan, [facility] [id number] [place] [address] 50466- 5750 Jan, [facility] [id number] [place] [address] 65081- 4673 Dec, [facility] [employer] [facility] [address] [place] [id number] Dec, Peripheral vascular disease I73.9 ; 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 ADRIENNE SANCHEZ [id number] [place] [address] Nov [facility] [id number] [place] [id number] Nov, Anxiety F41.9 [facility] [address], [place] [address] 90[address] Nov, [facility] [id number] [place] [address] [id number] Nov, Anxiety F41.9 [facility] [employer] [facility] [address] [place] [id number] Nov, Status post surgery Z98.890 ; Confused R41.0 ; Anxiety F41.9 and Other chronic pain G89.29 [facility] [address] [id number] [id number] Nov, Other chronic pain G89.29 [facility] [address] [facility] [id number], [place] [address] 2546 Oct, [facility] [id number] [address] Oct, Other chronic pain G89.29 [facility] [address] [facility] [id number], [place] [address] 2546 Oct, Anxiety F41.9 [facility] [id number] [place] [id number] Sep, Other chronic pain G89.29 [facility] [id number] [place] [id number] Sep, [facility] [address] [facility] [address] [place] [id number] Aug, Dysuria R30.0 and Anxiety F41.9 [facility] [address]00565100[place], [place] [address] 4[address] Aug, [facility] [id number] [place] [id number] Aug, Other chronic pain G89.29 [facility] [address]65[address], [place] [address] 3516 Jul, Other chronic pain G89.29 [facility] [id number], [place] [id number] Jun, [facility] [id number][place] [id number] Jun, Other chronic pain G89.29 [facility] [address]65[address], [place] [address] 2546 Jun, [facility] [address]100[place], [place] [address] 1616 May, Other chronic pain G89.29 [facility] [address]65100[place], [place] [address] 2561 Apr, Other chronic pain G89.29 [facility] [employer] [address] [place] [id number] Apr, Reactive depression F32.9 and Pharyngeal dysphagia R13.13 [facility] [address]100[place], [place] [address] 76[address] Apr, Urinary tract infection without hematuria, site unspecified N39.0 [facility] [address] [id number], [place] [address] 5393 March, Other chronic pain G89.29 [facility] [id number] [place] [address] 50529- 7898 Feb, Other chronic pain G89.29 [facility] [address]65100[place], [place] [address] 3693 Feb, [facility] [id number] [place] [address] [id number] Feb, [facility] [employer] [address] [place] [id number] Feb, Dysuria R30.0 and Ventral hernia without obstruction or gangrene K43.9 [facility] [address], [place] [address]- 6217 Jan, Other chronic pain G89.29 [facility] [id number], [place] [id number] Dec, Other chronic pain G89.29 [facility] [address] [id number], [place] [address] 0432 Nov, Other chronic pain G89.29 [facility] [employer] [address] [place] [id number] Nov, Lymphadenitis I88.9 [facility] [address] [id number], [place] [address] 5332 Nov, Other chronic pain G89.29 [facility] [id number] [place] [address] 39190- 9495 Nov, [facility] [place] [facility] [id number] [place] [address] [id number] Nov, Other chronic pain G89.29 [facility] [address] [place] [id number] Oct, Low back pain M54.5 ; Hypertension I10 and Type 2 diabetes mellitus without complication, without long-term current use of insulin E11.9 [facility] [id number] [place] [address] 11549- 9187 Oct, [facility] [id number] [place] [address] 89325- 2051 Oct, [facility] [id number] [place] [address] 34269- 4388 Oct, [facility] [id number] [place] [address] 13553- 4155 Oct, [facility] [id number] [place] [address] 89197- 6533 Sep, [facility] [id number] [place] [address] 17691- 4066 Sep, [facility] [id number] [place] [address] 90134- 7711 Aug, Other chronic pain G89.29 [facility] [id number] [place] [address] 88280- 4688 Jul, [facility] [address] [id number], [place] [address]- 2154 Jul, [facility] [id number] [place] [address] 27066- 6250 Jul, [facility] [address] [address] 9611 Jun, [facility] [id number] [place] [address] 42029- 5657 Jun, [facility] [address] [place] [id number] Jun, Low back pain M54.5 ; Other chronic pain G89.29 and Coronary artery disease I25.10 [facility] [address], [place] [address]- 2753 Jun, [facility] [id number] [place] [address] 04116- 5071 May, [facility] [id number] [place] [address] 51071- 7848 May, [facility] [id number] [place] [address] 59202- 8786 May, Other chronic pain G89.29 [facility] [id number] [place] [address] 17036- 8985 May, [facility] [id number] [place] [address] 33944- 0183 Apr, [facility] [id number] [place] [address] 84877- 1277 Apr, Acute cystitis without hematuria N30.00 [facility] [id number] [place] [address] 82076- 1218 Apr, Acute cystitis without hematuria N30.00 ; Coronary artery disease I25.10 ; Low back pain M54.5 and Other chronic pain G89.29 [facility] [id number] [place] [address] 42155- 4839 Apr, Other chronic pain G89.29 [facility] [address] [id number], [place] [address]- 3300 March, Other chronic pain G89.29 [facility] [id number] [place] [address] 73358- 1921 Feb, [facility] [id number] [place] [address] 05670- 9184 Feb, Arthritis M19.90 [facility] [address], [place] [address]- 9188 Feb, [facility] [id number] [place] [address] 74973- 7166 Jan, [facility] [address], [place] [address] 2546 Jan, [facility] [id number] [place] [address] 97822- 8732 Jan, Other chronic pain G89.29 [facility] [id number] [place] [address] 65589- 0573 Jan, Hypertension I10 ; Coronary artery disease I25.10 and Insomnia G47.00 [facility] [address], [place] [address]- 7016 Jan, [facility] [id number] [place] [address] 16164- 1897 Dec, Right hip pain M25.551 [facility] [address], [place] [address]- 7606 Dec, [facility] [address], [place] [address]- 1201 Dec, [facility] [address], [place] [address]- 0736 Dec, [facility] [address], [place] [address] 2549 Dec, Other chronic pain G89.29 [facility] [address], [place] [address] 2546 Dec, [facility] [address], [place] [address] 2540 Nov, [facility] [address], [place] [address] 2546 Nov, Other chronic pain G89.29 [facility] [id number] [place] [address] 77871- 0915 Nov, Right hip pain M25.551 and Coronary artery disease I25.10 [facility] [id number] [place] [address] 16059- 8408 Nov, Other chronic pain G89.29 [facility] [id number] [place] [address] 08838- 4162 Oct, [facility] [id number] [place] [address] 36153- 5283 Oct, [facility] [address] 95232- 0584 Sep, [facility] [id number] [place] [address] 42924- 6060 Sep, [facility] [address] 71444- 8660 Aug, [facility] [id number] [place] [address] 10872- 7315 Aug, Hypertension I10 ; Coronary artery disease I25.10 and Arthritis M19.90 [facility] [id number] [place] [address] 03460- 5160 Jun, [facility] [id number] [place] [address] 11704- 8522 Jun, Essential hypertension, benign 401.1 ; Other chronic pain 338.29 and Chronic airway obstruction, not elsewhere classified 496 [facility] [id number] [place] [address] 89073- 4327 Jun, [facility] [id number] [place] [address] 58667- 0501 Jun, [facility] [id number] [place] [address] 52202- 1312 Jun, [facility] [id number] [place] [address] 87746- 5651 May, [facility] [address] [id number] [place] [address]- 9208 May, [facility] [address] [id number] [place] [address]- 7020 Apr, [facility] [address] [id number] [place] [address]- 1807 Apr, [facility] [address] [id number] [place] [address]- 2271 Apr, [facility] [address] [id number] [place] [address]- 1312 March, [facility] [address] [id number] [place] [address]- 3676 March, [facility] [address] [id number] [place] [address]- 7375 March, [facility] [address] [id number] [place] [address]- 0720 March, [facility] [address] [id number] [place] [address]- 0681 March, Sialadenitis 527.2 [facility] [address] [id number] [place] [address]- 6704 Feb, [facility] [address] [id number] [place] [address]- 6847 Feb, [facility] [address] [id number] [place] [address]- 6231 Feb, [facility] [address] [id number] [place] [address]- 9334 14 Feb, 2015 [facility] [address] [id number] [place] [address]- 8378 Feb, [facility] [address] [id number] [place] [address]- 7445 Jan, [facility] [place] [facility] [address] [id number] [place] [address]- 5593 Jan, [facility] [place] [facility] [address] [id number] [place] [address]- 8471 Jan, [facility] [place] [facility] [address] [id number] [place] [address]- 5544 Jan, [facility] [place] [facility] [address] [id number] [place] [address]- 3132 Jan, [facility] [place] [facility] [address] [id number] [place] [address]- 2520 Jan, [facility] [place] [facility] [address] [id number] [place] [address]- 0739 Dec, 2014 [facility] [place] [facility] [address] [facility] [id number] [place] [address]- 1793 Dec, 2014 [facility] [place] [facility] [address] [id number] [place] [address]- 7644 Dec, 2014 [facility] [place] [facility] [address] [facility] [id number] [place] [address]- 2299 Dec, [facility] [place] [facility] [address] [facility] [id number] [place] [address]- 8205 Dec, [facility] [place] [facility] [address] [facility] [id number] [place] [address]- 2806 Dec, [facility] [place] [facility] [address] [id number] [place] [address]- 9486 Nov, [facility] [place] [facility] [address] [id number] [place] [address]- 6881 Nov, [facility] [place] [facility] [address] [id number] [place] [address]- 3075 Nov, [facility] [place] [facility] [address] [facility] [id number] [place] [address]- 5244 Nov, [facility] [place] [facility] [address] [facility] [id number], [place] [address]- 9164 Nov, [facility] [address] [id number] [place] [address]- 9566 Nov, [facility] [place] [facility] [address] [id number] [place] [address]- 0393 Nov, [facility] [place] [facility] [address] [facility] [id number] [place] [address]- 8343 Nov, [facility] [place] [facility] [address] [id number] [place] [address]- 0323 Nov, [facility] [address] [id number] [place] [address]- 7147 Nov, [facility] [place] [facility] [address] [id number] [place] [address]- 7825 Nov, [facility] [address] [facility] [id number] [place] [address] Nov, [facility] [address] [id number] [place] [address] Nov, [facility] [address] [id number] [place] [address] Nov, [facility] [address] [facility] [id number] [place] [address] Oct, [facility] [address] [id number] [place] [address] Oct, [facility] [place] [facility] [address] [id number], [place] [address] Oct, [facility] [place] [facility] [address] [id number] [place] [address] 18 Oct, 2014 [facility] [place] [facility] [address] [id number] [place] [address] 18 Oct, 2014 [facility] [place] [facility] [address] [facility] [id number] [place] [address] 17 Oct, 2014 [facility] [place] [facility] [address] [id number] [place] [address] 17 Oct, 2014 [facility] [place] [facility] [address] [id number] [place] [address] Oct, [facility] [place] [facility] [address] [id number] [place] [address] Oct, [facility] [place] [facility] [address] [id number] [place] [address] Sep, [facility] [place] [facility] [address] [id number] [place] [address] Sep, [facility] [place] [facility] [address] [id number] [place] [address] Sep, [facility] [place] [facility] [address] [id number] [place] [address] Sep, [facility] [place] [facility] [address] [id number] [place] [address] Sep, [facility] [place] [facility] [address] [id number] [place] [address] Sep, [facility] [place] [facility] [address] [id number] [place] [address] Sep, [facility] [place] [facility] [address] [id number] [place] [address] Sep, [facility] [place] [facility] [address] [id number] [place] [address] Sep, [facility] [place] [facility] [address] [id number] [place] [address] Sep, [facility] [place] [facility] [address] [id number] [place] [address] Sep, [facility] [place] [facility] [address] [id number] [place] [address] Sep, [facility] [place] [facility] [address] [id number] [place] [address] 30 Aug, 2014 [facility] [place] [facility] [address] [id number] [place] [address] 30 Aug, 2014 [facility] [place] [facility] [address] [id number] [place] [address] 29 Aug, 2014 [facility] [place] [facility] [address] [id number] [place] [address] 29 Aug, 2014 [facility] [place] [facility] [address] [id number] [place] [address] Aug, [facility] [place] [facility] [address] [id number] [place] [address] 28 Aug, 2014 [facility] [place] [facility] [address] [id number] [place] [address] Aug, [facility] [place] [facility] [address] [id number] [place] [address] Aug, [facility] [place] [facility] [address] [id number] [place] [address] 30 Sep, 2013 [facility] [place] [facility] [address] [id number] [place] [address] 30 Sep, 2013 [facility] [place] [facility] [address] [id number] [place] [address] 30 Sep, 2013 [facility] [place] [facility] [address] [id number], [place] [address] 30 Sep, 2013 [facility] [place] [facility] [address] [id number], [place] [address] 25 Sep, 2013 [facility] [place] [facility] [address] [id number] [place] [address] 25 Sep, 2013 [facility] [place] [facility] [address] [id number], [place] [address] 15 Sep, 2013 [facility] [place] [facility] [address] [id number] [place] [address] 15 Sep, 2013 [facility] [place] [facility] [address] [id number] [place] [address] Jul, [facility] [facility] [address] [id number] [place] [address] Jul, [facility] [place] [facility] [address] [id number] [place] [address]68 Jun, [facility] [place] [facility] [address] [id number] [place] [address]- 4834 Jun, [facility] [place] [facility] [address] [id number] [place] [address]- 3318 Jun, [facility] [place] [facility] [address] [id number] [place] [address]- 0015 Jun, [facility] [place] [facility] [address] [id number] [place] [address]- 5339 Jun, [facility] [place] [facility] [address] [id number] [place] [address]- 9959 Jun, [facility] [place] [facility] [address] [id number] [place] [address]- 8225 Jun, [facility] [place] [facility] [address] [id number] [place] [address]- 8209 Jun, [facility] [place] [facility] [address] [id number] [place] [address]- 3877 Jun, [facility] [place] [facility] [address] [id number] [place] [address]- 6378 Jun, [facility] [place] [facility] [address] [id number] [place] [address]- 2473 Jun, [facility] [place] [facility] [address] [id number] [place] [address]- 0717 Jun, [facility] [place] [facility] [address] [id number] [place] [address]- 9711 Jun, [facility] [place] [facility] [address] [id number] [place] [address]- 3737 Jun, [facility] [place] [facility] [address] [id number] [place] [address]- 4926 Jun, [facility] [place] [facility] [address] [id number] [place] [address]- 4938 Jun, [facility] [place] [facility] [address] [id number] [place] [address]- 6801 Jun, [facility] [place] [facility] [address] [id number] [place] [address]- 2585 Jun, [facility] [place] [facility] [address] [id number] [place] [address]- 0137 Jun, [facility] [place] [facility] [address] [id number] [place] [address]- 2498 Jun, [facility] [place] [facility] [address] [id number] [place] [address]- 8564 Jun, [facility] [place] [facility] [address] [id number] [place] [address]- 3980 Jun, [facility] [place] [facility] [address] [id number] [place] [address]- 8151 May, [facility] [place] [facility] [address] [id number] [place] [address]- 8577 May, [facility] [place] [facility] [address] [id number] [place] [address]- 4468 May, [facility] [place] [facility] [address] [id number] [place] [address]- 9624 May, [facility] [place] [facility] [address] [id number] [place] [address]- 4936 May, [facility] [place] [facility] [address] [id number] [place] [address]- 8713 May, [facility] [place] [facility] [address] [id number] [place] [address]- 0121 May, [facility] [place] [facility] [address] [id number] [place] [address]- 7793 May, [facility] [place] [address] [id number] [place] [address]- 4114 May, [facility] [address] [id number] [place] [address] May, [facility] [address] [id number] [place] [address]- 5221 May, [facility] [place] [facility] [address] [id number] [place] [address]- 8588 May, [facility] [place] [facility] [address] [id number] [place] [address]- 8802 May, [facility] [place] [facility] [address] [id number] [place] [address]- 2689 Apr, [facility] [place] [facility] [address] [id number] [place] [address]- 4869 Apr, [facility] [place] [facility] [address] [id number] [place] [address]- 4716 Apr, [facility] [place] [facility] [address] [id number] [place] [address]- 9775 Apr, [facility] [place] [facility] [address] [id number] [place] [address]- 6485 Apr, [facility] [address] [id number] [place] [address]- 6733 Apr, [facility] [address] [id number] [place] [address]- 8823 Apr, [facility] [address] [id number] [place] [address]- 2944 Apr, [facility] [address] [id number] [place] [address]- 6947 Apr, [facility] [address] [id number] [place] [address]- 4197 March, [facility] [address] [id number] [place] [address]- 8276 March, [facility] [address] [id number] [place] [address]- 8676 March, [facility] [address] [id number] [place] [address]- 7372 March, [facility] [address] [id number] [place] [address]- 6567 March, [facility] [address] [id number] [place] [address]- 5091 March, [facility] [address] [id number] [place] [address]- 0207 March, [facility] [address] [id number] [place] [address]- 8610 March, [facility] [address] [id number] [place] [address]- 0998 March, [facility] [address] [id number] [place] [address]- 9624 March, [facility] [address] [id number] [place] [address]- 5691 March, [facility] [address] [id number] [place] [address]- 8456 March, [facility] [address] [id number] [place] [address]- 9108 March, [facility] [address] [id number] [place] [address]- 4881 March, [facility] [address] [id number] [place] [address]- 7398 March, [facility] [address] [id number] [place] [address]- 6502 March, [facility] [address] [id number] [place] March, [facility] [address] [id number] [place] [address]- 7908 March, [facility] [address] [id number] [place] [address]- 6080 March, [facility] [address] [id number] [place] [address]- 0810 March, [facility] [address] [id number] [place] [address]- 3546 Feb, [facility] [address] [id number] [place] [address]- 7918 Feb, [facility] [address] [id number] [place] [address]- 9901 Feb, [facility] [address] [id number] [place] [address]- 5412 Feb, [facility] [facility] [address] [id number] [place] [address]- 3198 Feb, [facility] [address] [id number] [place] [address]- 0217 Feb, [facility] [address] [id number] [place] [address]- 6715 Feb, [facility] [address] [id number] [place] [address]- 3737 Feb, [facility] [address] [id number], [place] [address]- 8388 Jan, [facility] [address] [id number] [place] [address]- 6207 Jan, [facility] [facility] [address] [id number] [place] [address]- 6233 Jan, [facility] [address] [id number] [place] [address]- 3670 Jan, [facility] [address] [id number], [place] [address]- 4340 13 Jan, 2014 [facility] [address] [id number] [place] [address]- 1013 13 Jan, 2014 [facility] [address] [id number] [place] [address]- 7082 Jan, [facility] [address] [facility] [id number] [place] [address]- 3086 Jan, [facility] [facility] [address] [id number] [place] [address]- 8832 Jan, [facility] [address] [id number] [place] [address]- 7569 Jan, [facility] [address] [id number] [place] [address]- 3658 27 Dec, 2013 [facility] [address] [facility] [id number] [place] [address]- 2136 Dec, [facility] [address] [facility] [id number] [place] [address]- 1635 Dec, [facility] [address] [facility] [id number] [place] [address]- 6645 2013 [facility] [address] [facility] [id number] [place] [address] 8499 2013 [facility] [address] [facility] [id number] [place] [address]- 2140 Dec, [facility] [address] [facility] [id number] [place] [address]- 4836 Dec, [facility] [address] [facility] [id number] [place] [address]- 8392 Dec, [facility] [address] [facility] [id number] [place] [address]- 6751 Nov, [facility] [address] [facility] [id number] [place] [address]- 8904 Nov, [facility] [address] [id number] [place] [address]- 0671 Nov, [facility] [address] [id number] [place] [address]- 1327 Nov, [facility] [facility] [address] [id number] [place] [address]- 7531 Nov, [facility] [address] [id number] [place] [address]- 9257 Nov, [facility] [address] [id number] [place] [address]- 1842 Nov, [facility] [address] [id number] [place] [address]- 6949 Nov, [facility] [address] [id number] [place] [address]- 3378 Nov, [facility] [address] [id number] [place] [address]- 6219 Nov, [facility] [address] [id number] [place] [address]- 8056 Nov, [facility] [address] [id number], [place] [address]- 1810 Nov, [facility] [address] [id number], [place] [address]- 7002 Nov, [facility] [address] [id number], [place] [address]- 9510 Oct, [facility] [address] [id number] [place] [address]- 1263 Oct, [facility] [address] [id number] [place] [address]- 7847 Oct, [facility] [address] [id number], [place] [address]- 1396 Oct, [facility] [address] [id number], [place] [address]- 4337 Oct, [facility] [address] [id number] [place] [address]- 6900 Oct, [facility] [address] [id number] [place] [address]- 4695 18 Oct, 2013 [facility] [address] [facility] [id number] [place] [address]- 9158 18 Oct, 2013 [facility] [address] [id number] [place] 2447 17 Oct, 2013 [facility] [address] [id number] [place] [address]- 2192 17 Oct, 2013 [facility] [address] [facility] [id number] [place] [address] Oct, [facility] [address] [id number] [place] [address]- 3487 Oct, [facility] [address] [facility] [id number] [place] [address]- 8793 Oct, [facility] [address] [id number] [place] [address]- 2572 Oct, [facility] [address] [id number] [place] [address]- 3927 Sep, [facility] [address] [facility] [id number], [place] [address]- 3179 14 Sep, 2013 [facility] [address] [id number], [place] [address]- 7881 05 Sep, 2013 [facility] [address] [id number], [place] [address]- 4824 05 Sep, 2013 [facility] [address] [facility] [id number], [place] [address]- 4917 Sep, [facility] [address] [id number], [place] [address]- 2944 Sep, [facility] [address] [id number] [place] [address]- 8298 Sep, [facility] [address] [id number] [place] [address]- 8429 Sep, [facility] [address] [id number] [place] [address]- 0650 Sep, [facility] [place] [facility] [address] [id number] [place] [address]- 6918 Sep, [facility] [place] [address] [id number] [place] [address]- 7100 Aug, [facility] [place] [facility] [address] [id number] [place] [address]- 6222 Aug, [facility] [place] [facility] [address] [id number] [place] [address]- 7190 Aug, [facility] [place] [facility] [address] [id number] [place] [address]- 3886 Aug, [facility] [place] [facility] [address] [id number] [place] [address]- 6544 Aug, [facility] [place] [facility] [address] [id number] [place] [address]- 0908 Aug, [facility] [place] [facility] [address] [id number] [place] [address]- 8607 Aug, [facility] [place] [facility] [address] [id number] [place] [address]- 3034 Aug, [facility] [place] [facility] [address] [id number] [place] [address]- 3540 Aug, [facility] [place] [facility] [address] [id number] [place] [address]- 3129 Aug, [facility] [place] [facility] [address] [id number] [place] [address]- 3848 Aug, [facility] [place] [facility] [address] [id number] [place] [address]- 8894 18 Aug, 2013 [facility] [place] [facility] [address] [id number] [place] [address]- 1251 18 Aug, 2013 [facility] [place] [facility] [address] [id number] [place] [address]- 5899 18 Aug, 2013 [facility] [place] [facility] [address] [id number] [place] [address]- 6627 17 Aug, 2013 [facility] [place] [facility] [address] [id number] [place] [address]- 7534 14 Aug, 2013 [facility] [place] [facility] [address] [id number] [place] [address]- 1780 14 Aug, 2013 [facility] [place] [facility] [address] [id number] [place] [address]- 3247 01 Aug, 2013 [facility] [place] [facility] [address] [id number] [place] [address]- 0183 20 Jul, 2013 [facility] [place] [facility] [address] [id number] [place] [address]- 8849 19 Jul, 2013 [facility] [place] [facility] [address] [id number] [place] [address]- 0918 18 Jul, 2013 [facility] [place] [facility] [address] [id number] [place] [address]- 3448 11 Jul, 2013 [facility] [place] [facility] [address] [id number], [place] [address]- 7016 11 Jul, 2013 [facility] [place] [facility] [address] [id number], [place] [address]- 9925 28 Jun, 2013 [facility] [place] [facility] [address] [id number] [place] [address]- 6999 Jun, [facility] [place] [facility] [address] [id number] [place] [address]- 9814 Jun, [facility] [place] [facility] [address] [id number] [place] [address]- 1870 15 Jun, 2013 [facility] [place] [facility] [address] [id number] [place] [address]- 2825 Jun, [facility] [place] [facility] [address] [id number] [place] [address]- 4021 Jun, [facility] [place] [facility] [address] [id number] [place] [address]- 9993 Jun, [facility] [place] [facility] [address] [id number] [place] [address]- 2858 Jun, [facility] [place] [facility] [address] [id number] [place] [address]- 4023 Jun, [facility] [place] [facility] [address] [id number] [place] [address]- 5102 Jun, [facility] [place] [facility] [address] [id number] [place] [address]- 9783 May, [facility] [place] [facility] [address] [id number] [place] [address]- 9806 May, [facility] [place] [facility] [address] [id number] [place] [address]- 4154 May, [facility] [place] [facility] [address] [id number] [place] [address]- 5662 May, [facility] [place] [facility] [address] [id number] [place] [address]- 2543 May, [facility] [place] [facility] [address] [id number] [place] [address]- 8739 May, [facility] [place] [facility] [address] [id number] [place] [address]- 1666 May, [facility] [place] [facility] [address] [id number] [place] [address]- 4708 May, [facility] [place] [facility] [address] [id number] [place] [address]- 6610 May, [facility] [place] [facility] [address] [id number] [place] [address]- 6801 Apr, [facility] [place] [facility] [address] [id number] [place] [address]- 8915 Apr, [facility] [address] [id number] [place] [address]- 9856 Apr, [facility] [address] [id number] [place] [address]- 0040 Apr, [facility] [address] [id number] [place] [address]- 1143 Apr, [facility] [address] [id number] [place] [address]- 1363 Apr, [facility] [address] [id number] [place] [address]- 1666 Apr, [facility] [address] [id number] [place] [address]- 8733 March, [facility] [address] [id number] [place] [address]- 8413 Feb, [facility] [address] [id number] [place] [address]- 7211 Feb, [facility] [address] [id number] [place] [address]- 6710 Feb, [facility] [address] [id number] [place] [address]- 6054 Jan, [facility] [address] [id number] [place] [address]- 4549 Jan, [facility] [address] [id number] [place] [address]- 4420 Jan, [facility] [place] [facility] [address] [id number] [place] [address]- 2466 14 Jan, 2013 [facility] [place] [facility] [address] [id number] [place] [address]- 0493 12 Jan, 2013 [facility] [address] [id number] [place] [address]- 2546 08 Jan, 2013 [facility] [address] [id number] [place] [address]- 1557 07 Jan, 2013 [facility] [address] [id number] [place] [address]- 4886 04 Jan, 2013 [facility] [address] [id number] [place] [address] 28 Dec, 2012 [facility] [place] [facility] [address] [id number] [place] [address] 25 Dec, 2012 [facility] [address] [id number] [place] [address] 13 Dec, 2012 [facility] [address] [id number] [place] [address] 11 Dec, 2012 [facility] [address] [id number] [place] [address] 07 Dec, 2012 [facility] [address] [id number] [place] [address] 06 Dec, 2012 [facility] [address] [id number] [place] [address] 05 Dec, 2012 [facility] [address] [facility] [id number] [place] [address] Nov, [facility] [address] [id number] [place] [address] 287[address] 24 Nov, 2012 [facility] [place] [facility] [address] [id number] [place] [address] 2543 18 Nov, 2012 [facility] [place] [facility] [address] [id number] [place] [address] 15 Nov, 2012 [facility] [place] [facility] [address] [id number] [place] [address]- 9255 10 Nov, 2012 [facility] [place] [facility] [address] [id number], [place] [address] 10 Nov, 2012 [facility] [place] [facility] [address] [id number] [place] [address] Nov, [facility] [place] [facility] [address] [id number] [place] [address] Oct, [facility] [place] [facility] [address] [id number] [place] [address] 8[address] Oct, [facility] [place] [facility] [address] [id number] [place] [address] 28[address] Oct, [facility] [place] [facility] [address] [id number] [place] [address] Oct, [facility] [place] [facility] [address] [id number] [place] [address] Oct, [facility] [address] [id number] [place] [address] Oct, [facility] [place] [facility] [address] [id number] [place] [address]- 3218 Oct, [facility] [place] [facility] [address] [id number] [place] [address]- [address] Oct, [facility] [place] [facility] [address] [id number] [place] [address] 74[address] Oct, [facility] [place] [facility] [address] [id number] [place] [address] 1778 Oct, [facility] [place] [facility] [address] [id number] [place] [address]- [address]296 Oct, [facility] [place] [facility] [address] [id number] [place] [address]- 4954 Oct, [facility] [place] [facility] [address] [id number] [place] [address]- 49[address] Sep, [facility] [place] [facility] [address] [id number] [place] [address]36 Sep, [facility] [place] [facility] [address] [id number], [place] [address] Sep, [facility] [place] [facility] [address] [id number] [place] [address] 3495 Sep, [facility] [place] [facility] [address] [id number] [address] Sep, [facility] [place] [facility] [address] [facility] [id number] [place] [address]- 0465 Sep, [facility] [place] [facility] [address] [id number], [place] [address] Sep, [facility] [place] [facility] [address] [id number] [place] [address]- 1649 Sep, [facility] [place] [facility] [address] [id number], [place] [address] Sep, [facility] [place] [facility] [address] [facility] [id number], [place] [address] Sep, [facility] [place] [facility] [address] [id number], [place] [address] 34[address] Sep, [facility] [place] [facility] [address] [id number], [place] [address] Aug, [facility] [place] [facility] [address] [id number], [place] [address] Aug, [facility] [place] [facility] [address] [id number], [place] [address] 77[address] Aug, [facility] [place] [facility] [address] [id number], [place] [address] Aug, [facility] [place] [facility] [address] [id number], [place] [address]- [address] Aug, [facility] [place] [facility] [address] [facility] [id number], [place] [address] Aug, [facility] [place] [facility] [address] [facility] [id number], [place] [address] 6465 Aug, [facility] [place] [facility] [address] [id number] [place] [address]- 3766 Aug, [facility] [place] [facility] [address] [id number] [place] [address]- 1240 Aug, [facility] [place] [facility] [address] [id number] [place] [address] 6[address] Aug, [facility] [place] [facility] [address] [id number] [place] [address]- 3278 Jul, [facility] [place] [facility] [address] [id number] [place] [address] 5915 Jul, [facility] [place] [facility] [address] [id number] [place] [address]- 8678 Jul, [facility] [place] [facility] [address] [id number] [place] [address]- 7600 Jul, [facility] [place] [facility] [address] [id number] [place] [address]407 Jun, [facility] [place] [facility] [address] [id number] [place] [address]- 5412 Jun, [facility] [place] [facility] [address] [id number] [place] [address]- 1604 Jun, [facility] [place] [facility] [address] [id number] [place] [address]- 9362 Jun, [facility] [place] [facility] [address] [id number] [place] [address]- 277[address] Jun, [facility] [place] [facility] [address] [id number] [place] [address]- 7912 Jun, [facility] [place] [facility] [address] [id number] [place] [address]- 2393 Jun, [facility] [place] [facility] [address] [id number] [place] [address]- 6457 May, [facility] [place] [facility] [address] [id number] [place] [address]- 7933 May, [facility] [place] [facility] [address] [id number] [place] [address]- 4696 May, [facility] [place] [facility] [address] [id number] [place] [address]- 0201 May, [facility] [place] [facility] [address] [id number] [place] [address]- 1386 May, [facility] [place] [facility] [address] [id number] [place] [address]- 3618 Apr, [facility] [place] [facility] [address] [id number] [place] [address]- 5653 Apr, [facility] [place] [facility] [address] [id number] [place] [address]- 3196 Apr, [facility] [place] [facility] [address] [id number] [place] [address]- 6351 Apr, [facility] [place] [facility] [address] [id number] [place] [address]- 9123 Apr, [facility] [place] [facility] [address] [id number] [place] [address]- [address] March, [facility] [place] [facility] [address] [id number] [place] [address]- [address] March, [facility] [place] [facility] [address] [id number] [place] [address] March, [facility] [place] [facility] [address] [id number] [place] [address] March, [facility] [place] [facility] [address] [id number] [place] [address] March, [facility] [place] [facility] [address] [id number] [place] [address] March, [facility] [place] [facility] [address] [id number] [place] [address] March, [facility] [place] [facility] [address] [id number] [place] [address] March, [facility] [address] [id number] [place] [address] March, [facility] [place] [facility] [address] [id number] [place] [address] March, [facility] [place] [facility] [address] [id number] [place] [address] Feb, [facility] [place] [facility] [address] [id number] [place] [address] Feb, [facility] [address] [id number] [place] [address] Feb, [facility] [place] [facility] [address] [id number] [place] [address] Feb, [facility] [address] [id number] [place] [address] Feb, [facility] [place] [facility] [address] [id number] [place] [address] Feb, [facility] [place] [facility] [address] [id number] [place] [address] Feb, [facility] [place] [facility] [address] [id number] [place] [address] Feb, [facility] [place] [facility] [address] [id number] [place] [address] Feb, [facility] [place] [facility] [address] [id number] [place] [address] Jan, [facility] [place] [facility] [address] [id number] [place] [address] Jan, [facility] [place] [facility] [address] [id number] [place] [address] 05 Jan, 2012 [facility] [place] [facility] [address] [facility] [id number] [place] [address] Jan, [facility] [place] [facility] [address] [id number] [place] [address] 29 Dec, 2011 [facility] [address] [id number] [place] [address] Dec, [facility] [place] [facility] [address] [id number] [place] [address] 31 Nov, 2011 [facility] [address] [id number] [place] [address] Nov, [facility] [place] [facility] [address] [id number] [place] [address] 18 Nov, 2011 [facility] [place] [facility] [address] [id number] [place] [address] 16 Nov, 2011 [facility] [address] [id number] [place] [address] Nov, [facility] [address] [id number] [place] [address] 30 Oct, 2011 [facility] [address] [id number] [place] [address] Oct, [facility] [address] [id number] [place] [address] Oct, [facility] [address] [id number] [place] [address] Oct, [facility] [address] [id number] [place] [address] Oct, [facility] [place] [facility] [address] [id number] [place] [address] Oct, [facility] [place] [facility] [address] [id number] [place] [address] Oct, [facility] [place] [facility] [address] [id number] [place] [address] 25[address] Oct, [facility] [place] [facility] [address] [id number] [place] [id number] Sep, IMMUNIZATIONS No Known Immunizations SOCIAL HISTORY Never Assessed REASON FOR VISIT Penitentiary Visit PLAN OF CARE Activity Details Follow Up prn Reason: VITAL SIGNS MEDICATIONS Medication Instructions Dosage Frequency Start Date End Date Duration Status Biofreeze Roll-On 4 % Externally 3 times a day 1 application to affected area as needed 8h Apr, Active Tylenol 325 MG Orally with her Ultram tid for 7 days 2 tablet Apr, Apr, 07 days Active RESULTS No Results PROCEDURES Procedure Date Ordered Result Body Site Minor complication (15 mins) May 01, 2018 INSTRUCTIONS MEDICATIONS ADMINISTERED No Known Medications MEDICAL (GENERAL) HISTORY Type Description Date 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
--- OUTSIDE RECORDS SUMMARY | 2018-09-04 11:42 | XMS REPORT ---
Author Author SHAHNAZ MARQUEZ [facility] Address [address] [place] [address] Care Team Providers Care Toolmaker Grade Three Name Role Phone SHAHNAZ MARQUEZ Unavailable PROBLEMS Type Condition ICD9-CM Code OOI63-XQ Code Onset Dates Condition Status SNOMED Code Problem Low back pain M54.5 Active 297795968 Problem Ventral hernia without obstruction or gangrene K43.9 Active 465045164 Problem Type 2 diabetes mellitus without complication, without long-term current use of insulin E11.9 Active 847352460 Problem Hypertension I10 Active 96420815 Problem Coronary artery disease I25.10 Active 19742766 Problem Hyperlipidemia E78.5 Active 82862983 Problem Other chronic pain G89.29 Active 87317969 Problem Paroxysmal atrial fibrillation I48.0 Active 951334085 Problem Insomnia G47.00 Active 206608516 Problem Pharyngeal dysphagia R13.13 Active 50846805388688 Problem Reactive depression F32.9 Active 53307192 Problem Peripheral vascular disease I73.9 Active 795873373 Problem Anxiety F41.9 Active 96850373 ALLERGIES No Information ENCOUNTERS Encounter Location Date Diagnosis [facility] [address] [address] Jun, Other chronic pain G89.29 [facility] [id number] [place] [address]54[address]- 9451 Jun, Via [facility] [address] [place] [id number] May, Anxiety F41.9 ; Type 2 diabetes mellitus without complication, without long-term current use of insulin E11.9 ; Hypertension I10 ; Low back pain M54.5 ; Paroxysmal atrial fibrillation I48.0 and 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 [facility] [id number] [place] [address] 33392- 0761 May, Other chronic pain G89.29 [address] [facility] [address] [place] [id number] May, Low back pain M54.5 [facility] [address] [id number] [address] May, [facility] [address] [facility] [id number], [place] [address] 9[address] Apr, Other chronic pain G89.29 [facility] [address] [id number], [place] [address] 18[address] Apr, [facility] [address] [facility] [id number] [place] [address] 12605- 8638 Apr, [address] [employer] [facility] [employer] [facility] [address] [place] [id number] Apr, Closed compression fracture of L3 lumbar vertebra with routine healing, subsequent encounter S32.030D [facility] [address] [place] [id number] 14 Apr, 2018 Low back pain M54.5 [address] [facility] [address] [place] [id number] Apr, Coccydynia M53.3 [facility] [address] [facility] [id number], [place] [address] March, [facility] [address] [facility] [id number], [place] [address] 80[address] March, Other chronic pain G89.29 [facility] [address] [facility] [id number][place] [address] 9[address] March, [facility] [address] [facility] [id number], [place] [address] 6489 March, [facility] [address] [facility] [id number] [address] 7[address] Feb, [facility] [address] [facility] [id number], [place] [address] 3871 Feb, Other chronic pain G89.29 [address] [facility] [address] [place] [address] Feb, Other chronic pain G89.29 and Anxiety F41.9 [facility] [address] [place] [address] 23892- 4571 Feb, [facility] [id number] [place] [address] 86172- 0360 Jan, [facility] [id number] [place] [address] 26895- 8242 Jan, [facility] [id number] [place] [address] 74267- 6115 Jan, [facility] [id number] [place] [address] 00929- 6729 Jan, [facility] [address] [place] [address] 24547- 7956 Dec, Via [facility] [address] [place] [id number] Dec, Peripheral vascular disease I73.9 ; 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 ; Other chronic pain G89.29 ; Anxiety F41.9 ; Reactive depression F32.9 ; Insomnia G47.00 and Type 2 diabetes mellitus without complication, without long-term current use of insulin E11.9 [facility] ADRIENNE SANCHEZ [id number] [place] [address] Nov [facility] [id number] [place] [id number] Nov, Anxiety F41.9 [facility] [address]100[place], [place] [address] 377[address] Nov, [facility] [id number] [place] [address] [id number] Nov, Anxiety F41.9 [facility] [address] [place] [address] Nov, Status post surgery Z98.890 ; Confused R41.0 ; Anxiety F41.9 and Other chronic pain G89.29 [facility] [address] [id number] [id number] Nov, Other chronic pain G89.29 [facility] [address] [facility] [id number][place] [address] 2546 Oct, [facility] [id number] [id number] Oct, Other chronic pain G89.29 [facility] [address] [facility] [id number], [place] [address] 2546 Oct, Anxiety F41.9 [facility] [id number] [place] [address] [id number] Sep, Other chronic pain G89.29 [facility] [id number] [place] [id number] Sep, Via [facility] [address] [facility] [place] [id number] Aug, Dysuria R30.0 and Anxiety F41.9 [facility] [address]100[place], [place] [address] Aug, [facility] [id number] [place] [address] [id number] Aug, Other chronic pain G89.29 [facility] [address]100[place], [place] [address] 20[address] Jul, Other chronic pain G89.29 [facility] [id number] [id number] Jun, [facility] [id number] [address] Jun, Other chronic pain G89.29 [facility] [address]65[address], [place] [address] 2546 Jun, [facility] [address]100[place], [place] [address]1 May, Other chronic pain G89.29 [facility] [address]00565100[place], [place] [address] 8445 Apr, Other chronic pain G89.29 [facility] [address] [place] [address] Apr, Reactive depression F32.9 and Pharyngeal dysphagia R13.13 [facility] [address]65100[place], [place] [address] 0398 Apr, Urinary tract infection without hematuria, site unspecified N39.0 [facility] [address] [id number] [address] 2865 March, Other chronic pain G89.29 [facility] [id number] [place] [address] 31096- 2605 Feb, Other chronic pain G89.29 [facility] [address], [place] [address]- 7250 Feb, [facility] [id number] [place] [address] [id number] Feb, [facility] [address] [place] [id number] Feb, Dysuria R30.0 and Ventral hernia without obstruction or gangrene K43.9 [facility] [address], [place] [address]- 9132 Jan, Other chronic pain G89.29 [facility] [id number] [id number] Dec, Other chronic pain G89.29 [facility] [address] [id number] [address] 4087 Nov, Other chronic pain G89.29 [facility] [address] [place] [address] Nov, Lymphadenitis I88.9 [facility] [address] [id number] [address]- 2218 Nov, Other chronic pain G89.29 [facility] [address] [place] [address] 31922- 2825 Nov, [facility] [place] [facility] [id number] [place] [address] [id number] Nov, Other chronic pain G89.29 [facility] [address] [place] [address] Oct, Low back pain M54.5 ; Hypertension I10 and Type 2 diabetes mellitus without complication, without long-term current use of insulin E11.9 [facility] [address] [place] [address] 87299- 2323 Oct, [facility] [id number] [place] [address] 54270- 8197 Oct, [facility] [id number] [place] [address] 67608- 2060 Oct, [facility] [id number] [place] [address] 59775- 5515 Oct, [facility] [address] [place] [address] 04216- 6810 Sep, [facility] [address] [place] [address] 45193- 4974 Sep, [facility] [address] [place] [address] 10003- 1275 Aug, Other chronic pain G89.29 [facility] [address] [place] [address] 54564- 7423 Jul, [facility] [address] [id number], [place] [address]- 1774 Jul, [facility] [address] [place] [address] 26267- 1519 Jul, [facility] [address]65100[place] [address] 3662 Jun, [facility] [address] [place] [address] 51598- 5231 Jun, Via [facility] [address] [place] [id number] Jun, Low back pain M54.5 ; Other chronic pain G89.29 and Coronary artery disease I25.10 [facility] [address]65100[place], [place] [address]- 3476 Jun, [facility] [id number] [place] [address] 17303- 8202 May, [facility] [id number] [place] [address] 39185- 1172 May, [facility] [id number] [place] [address] 48651- 0290 May, Other chronic pain G89.29 [facility] [id number] [place] [address] 74368- 9333 May, [facility] [id number] [place] [address] 26122- 3184 Apr, [facility] [id number] [place] [address] 70680- 9712 Apr, Acute cystitis without hematuria N30.00 [facility] [id number] [place] [address] 19709- 0110 Apr, Acute cystitis without hematuria N30.00 ; Coronary artery disease I25.10 ; Low back pain M54.5 and Other chronic pain G89.29 [facility] [address] [place] [address] 29421- 3973 Apr, Other chronic pain G89.29 [facility] [address] [id number], [place] [address]- 5373 March, Other chronic pain G89.29 [facility] [id number] [place] [address] 97830- 9729 Feb, [facility] [id number] [place] [address] 25081- 3953 Feb, Arthritis M19.90 [facility] [address], [place] [address]- 6743 Feb, [facility] [id number] [place] [address] 44715- 9886 Jan, [facility] [address], [place] [address] 2546 Jan, [facility] [id number] [place] [address] 36157- 8206 Jan, Other chronic pain G89.29 [facility] [address] [place] [address] 59997- 3118 Jan, Hypertension I10 ; Coronary artery disease I25.10 and Insomnia G47.00 [facility] [address], [place] [address]- 5326 Jan, [facility] [id number] [place] [address] 39237- 7125 Dec, Right hip pain M25.551 [facility] [address], [place] [address]- 4024 Dec, [facility] [address], [place] [address]- 7861 Dec, [facility] [address], [place] [address]- 1686 Dec, [facility] [address], [place] [address] 2547 Dec, Other chronic pain G89.29 [facility] [address], [place] [address] 2546 Dec, [facility] [address], [place] [address] 2545 Nov, [facility] [address], [place] [address] 2546 Nov, Other chronic pain G89.29 [facility] [id number] [place] [address] 59497- 5559 Nov, Right hip pain M25.551 and Coronary artery disease I25.10 [facility] [id number] [place] [address] 80782- 1697 Nov, Other chronic pain G89.29 [facility] [id number] [place] [address] 98012- 7610 Oct, [facility] [id number] [place] [address] 72325- 9988 Oct, [facility] [address] 61329- 1992 Sep, [facility] [id number] [place] [address] 56372- 2084 Sep, [facility] [address] 74000- 9910 Aug, [facility] [id number] [place] [address] 62234- 3624 Aug, Hypertension I10 ; Coronary artery disease I25.10 and Arthritis M19.90 [facility] [id number] [place] [address] 87548- 5024 Jun, [facility] [id number] [place] [address] 85808- 2481 Jun, Essential hypertension, benign 401.1 ; Other chronic pain 338.29 and Chronic airway obstruction, not elsewhere classified 496 [facility] [id number] [place] [address] 71911- 9136 Jun, [facility] [id number] [place] [address] 85934- 1891 Jun, [facility] [id number] [place] [address] 47950- 7987 Jun, [facility] [id number] [place] [address] 11066- 9687 May, [facility] [address] [id number] [place] [address]- 0562 May, [facility] [address] [id number] [place] [address]- 3760 Apr, [facility] [address] [id number] [place] [address]- 3614 Apr, [facility] [address] [id number] [place] [address]- 3506 Apr, [facility] [address] [id number] [place] [address]- 8781 March, [facility] [address] [id number] [place] [address]- 5077 March, [facility] [address] [id number] [place] [address]- 9933 March, [facility] [address] [id number] [place] [address]- 9766 March, [facility] [address] [id number] [place] [address]- 9816 March, Sialadenitis 527.2 [facility] [address] [id number] [place] [address]- 4883 Feb, [facility] [address] [id number] [place] [address]- 1238 Feb, [facility] [address] [id number] [place] [address]- 5479 Feb, [facility] [address] [id number] [place] [address]- 2038 14 Feb, 2015 [facility] [address] [id number] [place] [address]- 5426 Feb, [facility] [address] [id number] [place] [address]- 7855 Jan, [facility] [place] [facility] [address] [id number] [place] [address]- 1626 Jan, [facility] [place] [facility] [address] [id number] [place] [address]- 1736 Jan, [facility] [place] [facility] [address] [id number] [place] [address]- 5190 Jan, [facility] [place] [facility] [address] [id number] [place] [address]- 6763 Jan, [facility] [place] [facility] [address] [id number] [place] [address]- 1185 Jan, [facility] [place] [facility] [address] [id number] [place] [address]- 4629 Dec, 2014 [facility] [place] [facility] [address] [facility] [id number] [place] [address]- 1762 Dec, 2014 [facility] [place] [facility] [address] [id number] [place] [address]- 6819 Dec, 2014 [facility] [place] [facility] [address] [facility] [id number] [place] [address]- 0194 Dec, [facility] [place] [facility] [address] [facility] [id number] [place] [address]- 1326 Dec, [facility] [place] [facility] [address] [facility] [id number] [place] [address]- 6710 Dec, [facility] [place] [facility] [address] [id number] [place] [address]- 5256 Nov, [facility] [place] [facility] [address] [id number] [place] [address]- 6515 Nov, [facility] [place] [facility] [address] [id number] [place] [address]- 5816 Nov, [facility] [place] [facility] [address] [facility] [id number] [place] [address]- 5995 Nov, [facility] [place] [facility] [address] [facility] [id number], [place] [address]- 5596 Nov, [facility] [address] [id number] [place] [address]- 3547 Nov, [facility] [place] [facility] [address] [id number] [place] [address]- 7646 Nov, [facility] [place] [facility] [address] [facility] [id number] [place] [address]- 4549 Nov, [facility] [place] [facility] [address] [id number] [place] [address]- 3621 Nov, [facility] [address] [id number] [place] [address]- 3961 Nov, [facility] [place] [facility] [address] [id number] [place] [address]- 7855 Nov, [facility] [address] [facility] [id number] [place] [address]- 8150 Nov, [facility] [address] [id number] [place] [address]- 2862 Nov, [facility] [address] [id number] [place] [address]- 2948 Nov, [facility] [address] [facility] [id number] [place] [address]- 0401 Oct, [facility] [address] [id number] [place] [address]- 6259 Oct, [facility] [place] [facility] [address] [id number] [address]- 9177 Oct, [facility] [place] [facility] [address] [id number] [place] [address]- 9936 18 Oct, 2014 [facility] [place] [facility] [address] [id number] [place] [address]- 3130 18 Oct, 2014 [facility] [place] [facility] [address] [facility] [id number] [place] [address]- 3570 17 Oct, 2014 [facility] [place] [facility] [address] [id number] [place] [address]- 4547 17 Oct, 2014 [facility] [place] [facility] [address] [id number] [place] [address]- 4747 Oct, [facility] [place] [facility] [address] [id number] [place] [address]- 5512 Oct, [facility] [place] [facility] [address] [id number] [place] [address]- 3576 Sep, [facility] [place] [facility] [address] [id number] [place] [address]- 7522 Sep, [facility] [place] [facility] [address] [id number] [place] [address]- 3315 Sep, [facility] [place] [facility] [address] [id number] [place] [address]- 1142 Sep, [facility] [place] [facility] [address] [id number] [place] [address]- 6584 Sep, [facility] [place] [facility] [address] [id number] [place] [address]- 5429 Sep, [facility] [place] [facility] [address] [id number] [place] [address]- 5225 Sep, [facility] [place] [facility] [address] [id number] [place] [address]- 0308 Sep, [facility] [place] [facility] [address] [id number] [place] [address]- 7309 Sep, [facility] [place] [facility] [address] [id number] [place] [address] Sep, [facility] [place] [facility] [address] [id number] [place] [address] Sep, [facility] [place] [facility] [address] [id number] [place] [address] Sep, [facility] [place] [facility] [address] [id number] [place] [address] 30 Aug, 2014 [facility] [place] [facility] [address] [id number] [place] [address] 30 Aug, 2014 [facility] [place] [facility] [address] [id number] [place] [address] 29 Aug, 2014 [facility] [place] [facility] [address] [id number] [place] [address] 29 Aug, 2014 [facility] [place] [facility] [address] [id number] [place] [address] Aug, [facility] [place] [facility] [address] [id number] [place] [address] 28 Aug, 2014 [facility] [place] [facility] [address] [id number] [place] [address] Aug, [facility] [place] [facility] [address] [id number] [place] [address] Aug, [facility] [place] [facility] [address] [id number] [place] [address] 30 Sep, 2013 [facility] [place] [facility] [address] [id number] [place] [address] 30 Sep, 2013 [facility] [place] [facility] [address] [id number] [place] [address]- [address] 30 Sep, 2013 [facility] [place] [facility] [address] [id number] [address] 30 Sep, 2013 [facility] [place] [facility] [address] [id number], [place] [address] 25 Sep, 2013 [facility] [place] [facility] [address] [id number] [place] [address] 25 Sep, 2013 [facility] [place] [facility] [address] [id number], [place] [address] 15 Sep, 2013 [facility] [place] [facility] [address] [id number] [place] [address] 15 Sep, 2013 [facility] [place] [facility] [address] [id number] [place] [address]- [address] Jul, [facility] [place] [facility] [address] [id number] [place] [address] Jul, [facility] [place] [facility] [address] [id number] [place] [address] Jun, [facility] [place] [facility] [address] [id number] [place] [address] Jun, [facility] [place] [facility] [address] [id number] [place] [address] Jun, [facility] [place] [facility] [address] [id number] [place] [address]- [address] Jun, [facility] [place] [facility] [address] [id number] [place] [address]- [address] Jun, [facility] [place] [facility] [address] [id number] [place] [address]- [address] Jun, [facility] [place] [facility] [address] [id number] [place] [address] Jun, [facility] [place] [facility] [address] [id number] [place] [address] Jun, [facility] [place] [facility] [address] [id number] [place] [address] Jun, [facility] [place] [facility] [address] [id number] [place] [address] Jun, [facility] [place] [facility] [address] [id number] [place] [address] Jun, [facility] [place] [facility] [address] [id number] [place] [address] Jun, [facility] [place] [facility] [address] [id number] [place] [address] Jun, [facility] [place] [facility] [address] [id number] [place] [address] 37[address] Jun, [facility] [place] [facility] [address] [id number] [place] [address] 1987 Jun, [facility] [place] [facility] [address] [id number] [place] [address] 4378 Jun, [facility] [place] [facility] [address] [id number] [place] [address] 0694 Jun, [facility] [place] [facility] [address] [id number] [place] [address] 6885 Jun, [facility] [place] [facility] [address] [id number] [place] [address] 1824 Jun, [facility] [place] [facility] [address] [id number] [place] [address] 1069 Jun, [facility] [place] [facility] [address] [id number] [place] [address] 4097 Jun, [facility] [place] [facility] [address] [id number] [place] [address] 1899 Jun, [facility] [place] [facility] [address] [id number] [place] [address] 8264 May, [facility] [place] [facility] [address] [id number] [place] [address] 2949 May, [facility] [place] [facility] [address] [id number] [place] [address]- 6033 May, [facility] [place] [facility] [address] [id number] [place] [address] 7438 May, [facility] [place] [facility] [address] [id number] [place] [address]- 5371 May, [facility] [place] [facility] [address] [id number] [place] [address]- 0020 May, [facility] [place] [facility] [address] [id number] [place] [address]- 1383 May, [facility] [place] [facility] [address] [id number] [place] [address]- 6747 May, [facility] [place] [facility] [address] [id number] [place] [address]- 7683 May, [facility] [place] [facility] [address] [id number] [place] [address] May, [facility] [place] [facility] [address] [id number] [place] [address]- 0443 May, [facility] [place] [facility] [address] [id number] [place] [address]- 8969 May, [facility] [place] [facility] [address] [id number] [place] [address]- 6146 May, [facility] [place] [facility] [address] [id number] [place] [address]- 3598 Apr, [facility] [place] [facility] [address] [id number] [place] [address]- 8628 Apr, [facility] [place] [facility] [address] [id number] [place] [address]- 0243 Apr, [facility] [place] [facility] [address] [id number] [place] [address]- 7084 Apr, [facility] [place] [facility] [address] [id number] [place] [address]- 1190 Apr, [facility] [place] [facility] [address] [id number] [place] [address]- 7726 Apr, [facility] [place] [facility] [address] [id number] [place] [address] 5919 Apr, [facility] [place] [facility] [address] [id number] [place] [address]- 1051 Apr, [facility] [place] [facility] [address] [id number] [place] [address]- 2128 Apr, [facility] [place] [facility] [address] [id number] [place] [address]- 5947 March, [facility] [place] [facility] [address] [id number] [place] [address]- 6095 March, [facility] [address] [id number] [place] [address]- 5680 March, [facility] [address] [id number] [place] [address]- 4162 March, [facility] [address] [id number] [place] [address]- 0357 March, [facility] [address] [id number] [place] [address]- 7113 March, [facility] [address] [id number] [place] [address] 6697 March, [facility] [address] [id number] [place] [address]- 8370 March, [facility] [address] [id number] [place] [address]- 2926 March, [facility] [address] [id number] [place] [address]- 6217 March, [facility] [address] [id number] [place] [address]- 2940 March, [facility] [address] [id number] [place] [address]- 9582 March, [facility] [address] [id number] [place] [address]- 4237 March, [facility] [address] [id number] [place] [address]- 5297 March, [facility] [place] [facility] [address] [id number] [place] [address]- 9180 March, [facility] [address] [id number] [place] [address]- 1796 March, [facility] [address] [id number] [place] [address] March, [facility] [place] [facility] [address] [id number] [place] [address]- 9482 March, [facility] [place] [facility] [address] [id number] [place] [address]- 9419 March, [facility] [place] [facility] [address] [id number] [place] [address]- 3041 March, [facility] [place] [facility] [address] [id number] [place] [address]- 4857 Feb, [facility] [place] [facility] [address] [id number] [place] [address]- 1652 Feb, [facility] [place] [facility] [address] [id number] [place] [address]- 5735 Feb, [facility] [place] [facility] [address] [id number] [place] [address]- 1656 Feb, [facility] [place] [facility] [address] [id number] [place] [address]- 6107 Feb, [facility] [place] [facility] [address] [id number] [place] [address]- 0092 Feb, [facility] [place] [facility] [address] [id number] [place] [address]- 2452 Feb, [facility] [place] [facility] [address] [id number] [place] [address]- 6883 Feb, [facility] [place] [facility] [address] [id number], [place] [address]- 1868 Jan, [facility] [place] [facility] [address] [id number] [place] [address]- 9680 Jan, [facility] [place] [facility] [address] [id number] [place] [address]- 8884 Jan, [facility] [place] [facility] [address] [id number] [place] [address]- 8561 Jan, [facility] [place] [facility] [address] [id number][place] [address]- 9363 13 Jan, 2014 [facility] [place] [facility] [address] [id number] [place] [address]- 8362 13 Jan, 2014 [facility] [place] [facility] [address] [id number] [place] [address]- 4306 Jan, [facility] [place] [facility] [address] [facility] [id number] [place] [address]- 6170 Jan, [facility] [place] [facility] [address] [id number] [place] [address]- 0043 Jan, [facility] [place] [facility] [address] [id number] [place] [address]- 7588 Jan, [facility] [place] [facility] [address] [id number] [place] [address]- 2439 27 Dec, 2013 [facility] [place] [facility] [address] [facility] [id number] [place] [address]- 9765 Dec, [facility] [place] [facility] [address] [facility] [id number] [place] [address]- 0108 Dec, [facility] [place] [facility] [address] [facility] [id number] [place] [address]- 8173 2013 [facility] [place] [facility] [address] [facility] [id number] [place] [address]- 7854 2013 [facility] [place] [facility] [address] [facility] [id number] [place] [address]- 4570 Dec, [facility] [place] [facility] [address] [facility] [id number] [place] [address]- 4009 Dec, [facility] [place] [facility] [address] [facility] [id number] [place] [address]- 3367 Dec, [facility] [place] [facility] [address] [facility] [id number] [place] [address]- 2479 Nov, [facility] [place] [facility] [address] [facility] [id number] [place] [address]- 6635 Nov, [facility] [place] [facility] [address] [id number] [place] [address]- 9239 Nov, [facility] [place] [facility] [address] [id number] [place] [address]- 0144 Nov, [facility] [place] [facility] [address] [id number] [place] [address]- 5320 Nov, [facility] [place] [facility] [address] [id number] [place] [address]- 5528 Nov, [facility] [place] [facility] [address] [id number] [place] [address]- 2023 Nov, [facility] [place] [facility] [address] [id number] [place] [address]- 9324 Nov, [facility] [place] [facility] [address] [id number] [place] [address]- 1689 Nov, [facility] [place] [facility] [address] [id number] [place] [address]- 6913 Nov, [facility] [place] [facility] [address] [id number] [place] [address]- 9601 Nov, [facility] [place] [facility] [address] [id number], [place] [address]- 2466 Nov, [facility] [place] [facility] [address] [id number][place] [address]- 2620 Nov, [facility] [place] [facility] [address] [id number], [place] [address]- 8697 Oct, [facility] [place] [facility] [address] [id number] [place] [address]- 2595 Oct, [facility] [place] [facility] [address] [id number] [place] [address]- 5942 Oct, [facility] [place] [facility] [address] [id number], [place] [address]- 7667 Oct, [facility] [place] [facility] [address] [id number][place] [address]- 7871 Oct, [facility] [address] [id number] [place] [address]- 6907 Oct, [facility] [address] [id number] [place] [address]- 5613 18 Oct, 2013 [facility] [address] [facility] [id number] [place] [address]- 0463 18 Oct, 2013 [facility] [address] [id number] [place] 4191 17 Oct, 2013 [facility] [address] [id number] [place] [address]- 9404 17 Oct, 2013 [facility] [address] [facility] [id number] [place] [address] Oct, [facility] [address] [id number] [place] [address]- 5311 Oct, [facility] [address] [facility] [id number] [place] [address]- 8257 Oct, [facility] [address] [id number] [place] [address]- 7730 Oct, [facility] [address] [id number] [place] [address]- 3461 Sep, [facility] [address] [facility] [id number][place] [address]- 1139 14 Sep, 2013 [facility] [place] [facility] [address] [id number], [place] [address]- 9568 05 Sep, 2013 [facility] [place] [facility] [address] [id number], [place] [address]- 0952 05 Sep, 2013 [facility] [place] [facility] [address] [facility] [id number][place] [address]- 3060 Sep, [facility] [place] [facility] [address] [id number], [place] [address]- 7489 Sep, [facility] [place] [facility] [address] [id number] [place] [address]- 7730 Sep, [facility] [place] [facility] [address] [id number] [place] [address]- 2696 Sep, [facility] [place] [facility] [address] [id number] [place] [address]- 4655 Sep, [facility] [place] [facility] [address] [id number] [place] [address]- 3810 Sep, [facility] [place] [facility] [address] [id number] [place] [address]- 3207 Aug, [facility] [place] [facility] [address] [id number] [place] [address]- 6770 Aug, [facility] [place] [facility] [address] [id number] [place] [address]- 4001 Aug, [facility] [place] [facility] [address] [id number] [place] [address]- 6733 Aug, [facility] [place] [facility] [address] [id number] [place] [address]- 1151 Aug, [facility] [place] [facility] [address] [id number] [place] [address]- 6847 Aug, [facility] [place] [facility] [address] [id number] [place] [address]- 9667 Aug, [facility] [place] [facility] [address] [id number] [place] [address]- 3910 Aug, [facility] [place] [facility] [address] [id number] [place] [address]- 9006 Aug, [facility] [place] [facility] [address] [id number] [place] [address]- 4157 Aug, [facility] [place] [facility] [address] [id number] [place] [address]- 7759 Aug, [facility] [place] [facility] [address] [id number] [place] [address]- 1645 18 Aug, 2013 [facility] [place] [facility] [address] [id number] [place] [address]- 2390 18 Aug, 2013 [facility] [place] [facility] [address] [id number] [place] [address]- 0054 18 Aug, 2013 [facility] [place] [facility] [address] [id number] [place] [address]- 6930 17 Aug, 2013 [facility] [place] [facility] [address] [id number] [place] [address]- 5807 14 Aug, 2013 [facility] [place] [facility] [address] [id number] [place] [address]- 4800 14 Aug, 2013 [facility] [place] [facility] [address] [id number] [place] [address]- 0558 01 Aug, 2013 [facility] [place] [facility] [address] [id number] [place] [address]- 8757 20 Jul, 2013 [facility] [place] [facility] [address] [id number] [place] [address]- 9780 19 Jul, 2013 [facility] [place] [facility] [address] [id number] [place] [address]- 1767 18 Jul, 2013 [facility] [place] [facility] [address] [id number] [place] [address]- 8214 11 Jul, 2013 [facility] [place] [facility] [address] [id number], [place] [address]- 7304 11 Jul, 2013 [facility] [place] [facility] [address] [id number], [place] [address]- 8505 28 Jun, 2013 [facility] [place] [facility] [address] [id number] [place] [address]- 2267 Jun, [facility] [place] [facility] [address] [id number] [place] [address]- 0137 Jun, [facility] [place] [facility] [address] [id number] [place] [address]- 7893 15 Jun, 2013 [facility] [place] [facility] [address] [id number] [place] [address]- 4236 Jun, [facility] [place] [facility] [address] [id number] [place] [address]- 7756 Jun, [facility] [place] [facility] [address] [id number] [place] [address]- 1859 Jun, [facility] [place] [facility] [address] [id number] [place] [address]- 8387 Jun, [facility] [place] [facility] [address] [id number] [place] [address]- 5313 Jun, [facility] [place] [facility] [address] [id number] [place] [address]- 0430 Jun, [facility] [place] [facility] [address] [id number] [place] [address]- 3523 May, [facility] [place] [facility] [address] [id number] [place] [address]- 5022 May, [facility] [place] [facility] [address] [id number] [place] [address]- 4468 May, [facility] [place] [facility] [address] [id number] [place] [address]- 0157 May, [facility] [place] [facility] [address] [id number] [place] [address]- 9113 May, [facility] [place] [facility] [address] [id number] [place] [address]- 5074 May, [facility] [place] [facility] [address] [id number] [place] [address]- 6844 May, [facility] [place] [facility] [address] [id number] [place] [address]- 6897 May, [facility] [place] [facility] [address] [id number] [place] [address]- 3293 May, [facility] [place] [facility] [address] [id number] [place] [address]- 9750 Apr, [facility] [place] [facility] [address] [id number] [place] [address]- 6369 Apr, [facility] [address] [id number] [place] [address]- 7444 Apr, [facility] [address] [id number] [place] [address]- 1156 Apr, [facility] [address] [id number] [place] [address]- 4994 Apr, [facility] [address] [id number] [place] [address]- 3190 Apr, [facility] [address] [id number] [place] [address]- 1069 Apr, [facility] [address] [id number] [place] [address]- 2225 March, [facility] [address] [id number] [place] [address]- 1821 Feb, [facility] [address] [id number] [place] [address]- 2605 Feb, [facility] [address] [id number] [place] [address]- 4632 Feb, [facility] [address] [id number] [place] [address]- 2800 Jan, [facility] [address] [id number] [place] [address]- 6251 Jan, [facility] [address] [id number] [place] [address]- 6239 Jan, [facility] [place] [facility] [address] [id number] [place] [address]- 9711 14 Jan, 2013 [facility] [place] [facility] [address] [id number] [place] [address]- 5960 12 Jan, 2013 [facility] [address] [id number] [place] [address]- 2546 08 Jan, 2013 [facility] [address] [id number] [place] [address]- 3358 07 Jan, 2013 [facility] [address] [id number] [place] [address]- 7446 04 Jan, 2013 [facility] [address] [id number] [place] [address]- 5576 28 Dec, 2012 [facility] [place] [facility] [address] [id number] [place] [address]- 0441 25 Dec, 2012 [facility] [address] [id number] [place] [address]- 5626 13 Dec, 2012 [facility] [address] [id number] [place] [address]- 8776 11 Dec, 2012 [facility] [address] [id number] [place] [address]- 9244 07 Dec, 2012 [facility] [address] [id number] [place] [address]- 0927 06 Dec, 2012 [facility] [address] [id number] [place] [address]- 0160 05 Dec, 2012 [facility] [address] [facility] [id number] [place] [address]- 7657 Nov, [facility] [address] [id number] [place] [address]- 8547 24 Nov, 2012 [facility] [place] [facility] [address] [id number] [place] [address] 2549 18 Nov, 2012 [facility] [place] [facility] [address] [id number] [place] [address]- 5493 15 Nov, 2012 [facility] [place] [facility] [address] [id number] [place] [address]- 9881 10 Nov, 2012 [facility] [place] [facility] [address] [id number], [place] [address]- 3559 10 Nov, 2012 [facility] [place] [facility] [address] [id number] [place] [address] Nov, [facility] [place] [facility] [address] [id number] [place] [address] Oct, [facility] [place] [facility] [address] [id number] [place] [address] Oct, [facility] [place] [facility] [address] [id number] [place] [address] Oct, [facility] [place] [facility] [address] [id number] [place] [address] Oct, [facility] [place] [facility] [address] [id number] [place] [address] Oct, [facility] [address] [id number] [place] [address] Oct, [facility] [place] [facility] [address] [id number] [place] [address] Oct, [facility] [place] [facility] [address] [id number] [place] [address] Oct, [facility] [place] [facility] [address] [id number] [place] [address] Oct, [facility] [place] [facility] [address] [id number] [place] [address] Oct, [facility] [place] [facility] [address] [id number] [place] [address]96 Oct, [facility] [place] [facility] [address] [id number] [place] [address] Oct, [facility] [place] [facility] [address] [id number] [place] [address]66 Sep, [facility] [place] [facility] [address] [id number] [place] [address] 69[address] Sep, [facility] [place] [facility] [address] [id number], [place] [address] Sep, [facility] [place] [facility] [address] [id number] [place] [address]- [address]679 Sep, [facility] [place] [facility] [address] [id number] [address] Sep, [facility] [place] [facility] [address] [facility] [id number] [place] [address] Sep, [facility] [place] [facility] [address] [id number], [place] [address] Sep, [facility] [place] [facility] [address] [id number] [place] [address] 6565 Sep, [facility] [place] [facility] [address] [id number], [place] [address] Sep, [facility] [place] [facility] [address] [facility] [id number], [place] [address]368 Sep, [facility] [place] [facility] [address] [id number][place] [address] Sep, [facility] [place] [facility] [address] [id number], [place] [address] Aug, [facility] [place] [facility] [address] [id number], [place] [address]41 Aug, [facility] [place] [facility] [address] [id number], [place] [address] Aug, [facility] [place] [facility] [address] [id number], [place] [address] Aug, [facility] [place] [facility] [address] [id number], [place] [address] Aug, [facility] [place] [facility] [address] [facility] [id number], [place] [address] Aug, [facility] [place] [facility] [address] [facility] [id number], [place] [address] Aug, [facility] [place] [facility] [address] [id number] [place] [address] 4[address] Aug, [facility] [place] [facility] [address] [id number] [place] [address]233 Aug, [facility] [place] [facility] [address] [id number] [place] [address] 5876 Aug, [facility] [place] [facility] [address] [id number] [place] [address] 46[address] Jul, [facility] [place] [facility] [address] [id number] [place] [address]77 Jul, [facility] [place] [facility] [address] [id number] [place] [address] Jul, [facility] [place] [facility] [address] [id number] [place] [address] Jul, [facility] [place] [facility] [address] [id number] [place] [address]77 Jun, [facility] [place] [facility] [address] [id number] [place] [address] 1175 Jun, [facility] [place] [facility] [address] [id number] [place] [address] 6296 Jun, [facility] [place] [facility] [address] [id number] [place] [address]108 Jun, [facility] [place] [facility] [address] [id number] [place] [address] Jun, [facility] [place] [facility] [address] [id number] [place] [address]- 6131 Jun, [facility] [place] [facility] [address] [id number] [place] [address] 1519 Jun, [facility] [place] [facility] [address] [id number] [place] [address] 3121 May, [facility] [place] [facility] [address] [id number] [place] [address] May, [facility] [place] [facility] [address] [id number] [place] [address] 8780 May, [facility] [place] [facility] [address] [id number] [place] [address] 1201 May, [facility] [place] [facility] [address] [id number] [place] [address]- [address]876 May, [facility] [place] [facility] [address] [id number] [place] [address]80 Apr, [facility] [place] [facility] [address] [id number] [place] [address]- [address] Apr, [facility] [place] [facility] [address] [id number] [place] [address] 3586 Apr, [facility] [place] [facility] [address] [id number] [place] [address]- 0063 Apr, [facility] [place] [facility] [address] [id number] [place] [address]- [address] Apr, [facility] [place] [facility] [address] [id number] [place] [address] 2256 March, [facility] [place] [facility] [address] [id number] [place] [address]114 March, [facility] [place] [facility] [address] [id number] [place] [address]876 March, [facility] [place] [facility] [address] [id number] [place] [address] 8762 March, [facility] [place] [facility] [address] [id number] [place] [address] 7251 March, [facility] [place] [facility] [address] [id number] [place] [address] 5836 March, [facility] [place] [facility] [address] [id number] [place] [address] 3086 March, [facility] [place] [facility] [address] [id number] [place] [address]- 7045 March, [facility] [address] [id number] [place] [address] 4679 March, [facility] [place] [facility] [address] [id number] [place] [address]- 3220 March, [facility] [place] [facility] [address] [id number] [place] [address]- 2010 Feb, [facility] [place] [facility] [address] [id number] [place] [address] 2755 Feb, [facility] [address] [id number] [place] [address]- 6593 Feb, [facility] [place] [facility] [address] [id number] [place] [address]- 2871 Feb, [facility] [address] [id number] [place] [address]- 9792 Feb, [facility] [place] [facility] [address] [id number] [place] [address] Feb, [facility] [place] [facility] [address] [id number] [place] [address] Feb, [facility] [place] [facility] [address] [id number] [place] [address] Feb, [facility] [place] [facility] [address] [id number] [place] [address] Feb, [facility] [place] [facility] [address] [id number] [place] [address] Jan, [facility] [place] [facility] [address] [id number] [place] [address] Jan, [facility] [place] [facility] [address] [id number] [place] [address] 05 Jan, 2012 [facility] [place] [facility] [address] [facility] [id number] [place] [address] Jan, [facility] [place] [facility] [address] [id number] [place] [address] 29 Dec, 2011 [facility] [address] [id number] [place] [address] Dec, [facility] [place] [facility] [address] [id number] [place] [address] 31 Nov, 2011 [facility] [address] [id number] [place] [address] Nov, [facility] [place] [facility] [address] [id number] [place] [address] 18 Nov, 2011 [facility] [place] [facility] [address] [id number] [place] [address] 16 Nov, 2011 [facility] [address] [id number] [place] [address] Nov, [facility] [address] [id number] [place] [address] 30 Oct, 2011 [facility] [address] [id number] [place] [address] 254 Oct, [facility] [address] [id number] [place] [address] Oct, [facility] [address] [id number] [place] [address] Oct, [facility] [address] [id number] [place] [address] Oct, [facility] [place] [facility] [address] [id number] [place] [address] Oct, [facility] [place] [facility] [address] [id number] [place] [address] Oct, [facility] [place] [facility] [address] [id number] [place] [address] Oct, [facility] [place] [facility] [address] [id number] [place] [id number] Sep, IMMUNIZATIONS No Known Immunizations SOCIAL HISTORY Never Assessed REASON FOR VISIT DC ASA per Pharmacy Recommendation PLAN OF CARE VITAL SIGNS MEDICATIONS Unknown Medications RESULTS No Results PROCEDURES No Known procedures INSTRUCTIONS MEDICATIONS ADMINISTERED No Known Medications MEDICAL (GENERAL) HISTORY Type Description Date 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
--- OUTSIDE RECORDS SUMMARY | 2018-09-04 11:43 | XMS REPORT ---
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 Name Role Phone SHAHNAZ MARQUEZ Unavailable PROBLEMS Type Condition ICD9-CM Code XDZ37-HH Code Onset Dates Condition Status SNOMED Code Problem Low back pain M54.5 Active 782222062 Problem Ventral hernia without obstruction or gangrene K43.9 Active 690014436 Problem Type 2 diabetes mellitus without complication, without long-term current use of insulin E11.9 Active 091998890 Problem Hypertension I10 Active 68905603 Problem Coronary artery disease I25.10 Active 31960087 Problem Hyperlipidemia E78.5 Active 28099061 Problem Other chronic pain G89.29 Active 13640372 Problem Paroxysmal atrial fibrillation I48.0 Active 519047374 Problem Insomnia G47.00 Active 272278408 Problem Pharyngeal dysphagia R13.13 Active 58105457677932 Problem Reactive depression F32.9 Active 82128228 Problem Peripheral vascular disease I73.9 Active 166032658 Problem Anxiety F41.9 Active 13432916 ALLERGIES No Information ENCOUNTERS Encounter Location Date Diagnosis [facility] [address] [id number] [address] Jun, [facility] [address] [place] [id number] May, Anxiety F41.9 ; Type 2 diabetes mellitus without complication, without long-term current use of insulin E11.9 ; Hypertension I10 ; Low back pain M54.5 ; Paroxysmal atrial fibrillation I48.0 and 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 [facility] [address] [id number] [address] May, Other chronic pain G89.29 [facility] [address] [facility] [place] [id number] May, Low back pain M54.5 [facility] [address] [address] 17 May, 2018 [facility] [address] [place] [address] 08279- 2571 Apr, Other chronic pain G89.29 [facility] [address] [address] 9[address] Apr, [facility] [address] [place] [address] 67741- 3790 Apr, [facility] [address] [place] [id number] Apr, Closed compression fracture of L3 lumbar vertebra with routine healing, subsequent encounter S32.030D [facility] [address] [place] [id number] Apr, Low back pain M54.5 [facility] [address] [place] [id number] Apr, Coccydynia M53.3 [facility] [address] [address] March, [facility] [address]00565[address] [address] 8[address] March, Other chronic pain G89.29 [facility] [address] [address] 48[address] March, [facility] [address] [address] 6[address] March, [facility] [address] [address] 6[address] Feb, [facility] [id number] [place] [address] 94950- 5224 Feb, Other chronic pain G89.29 [facility] [address] [place] [id number] Feb, Other chronic pain G89.29 and Anxiety F41.9 [facility] [address] [id number] [address] 2546 Feb, [facility] [address] [facility] [id number] [address] 95[address] Jan, [facility] [address] [id number] [address] 5471 Jan, [facility] [address] [facility] [id number] [address] 4[address] Jan, [facility] [address] [id number] [address]- 6[address] Jan, [facility] [address] [id number] [address] Dec, [facility] [address] [place] [id number] Dec, Peripheral vascular disease I73.9 ; 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 ; Other chronic pain G89.29 ; Anxiety F41.9 ; Reactive depression F32.9 ; Insomnia G47.00 and Type 2 diabetes mellitus without complication, without long-term current use of insulin E11.9 [facility] [address]INDER [id number] [place] [address] Nov [facility] [address] [id number] [id number] Nov, Anxiety F41.9 [facility] [address] [facility] [id number] [address] Nov, [facility] [address] [id number] [place] [id number] Nov, Anxiety F41.9 [facility] [employer] [address] [place] [id number] Nov, Status post surgery Z98.890 ; Confused R41.0 ; Anxiety F41.9 and Other chronic pain G89.29 [facility] [address] [id number] [place] [id number] Nov, Other chronic pain G89.29 [address] [facility] [id number] [address] 2776 Oct, [facility] [id number] [place] [id number] Oct, Other chronic pain G89.29 [facility] [address] [facility] [id number] [address] 6986 Oct, Anxiety F41.9 [facility] [id number] [place] [address] [id number] Sep, Other chronic pain G89.29 [facility] [id number] [place] [id number] Sep, [facility] [address] [place] [id number] Aug, Dysuria R30.0 and Anxiety F41.9 [facility] [address] [place] [address] 02158- 8586 Aug, [facility] [id number] [place] [address] [id number] Aug, Other chronic pain G89.29 [facility] [address] [place] [address] 03867- 5826 Jul, Other chronic pain G89.29 [facility] [id number] [address] Jun, [facility] [id number] [place] [address] [id number] Jun, Other chronic pain G89.29 [facility] [address]00565[address] [address] 395[address] Jun, [facility] [address] [place] [address] 56525- 7486 May, Other chronic pain G89.29 [facility] [address] [facility] [id number] [address] 5[address] Apr, Other chronic pain G89.29 [facility] [address] [place] [id number] Apr, Reactive depression F32.9 and Pharyngeal dysphagia R13.13 [facility] [address] [place] [address] 09823- 6062 Apr, Urinary tract infection without hematuria, site unspecified N39.0 [facility] [id number] [place] [address] 83464- 0409 March, Other chronic pain G89.29 [facility] [id number] [place] [address] 56577- 7876 Feb, Other chronic pain G89.29 [facility] [id number] [place] [address] 37122- 3772 Feb, [facility] [id number] [place] [address] [id number] Feb, [facility] [address] [place] [id number] Feb, Dysuria R30.0 and Ventral hernia without obstruction or gangrene K43.9 [facility] [address] [place] [address] 24792- 9026 Jan, Other chronic pain G89.29 [facility] [id number] [place] [address] [id number] Dec, Other chronic pain G89.29 [facility] [address] [place] [address] 34904- 2943 Nov, Other chronic pain G89.29 [facility] [address] [place] [id number] Nov, Lymphadenitis I88.9 [facility] [id number] [place] [address] 50230- 5208 Nov, Other chronic pain G89.29 [facility] [address] [place] [address] 94993- 9597 Nov, [facility] [id number] [place] [address] [id number] Nov, Other chronic pain G89.29 Via [facility] [address] [place] [id number] Oct, Low back pain M54.5 ; Hypertension I10 and Type 2 diabetes mellitus without complication, without long-term current use of insulin E11.9 [facility] [address] [facility] [id number] [place] [address] 45235- 6165 Oct, [facility] [id number] [place] [address] 65471- 1450 Oct, [facility] [address] [facility] [id number] [place] [address] 91457- 8808 Oct, [facility] [address] [facility] [id number] [place] [address] 86194- 6597 Oct, [facility] [id number] [place] [address] 40303- 0036 Sep, [facility] [id number] [place] [address] 96767- 1011 Sep, [facility] [id number] [place] [address] 65917- 4442 Aug, Other chronic pain G89.29 [facility] [id number] [place] [address] 43631- 4221 Jul, [facility] [id number] [place] [address] 96767- 8355 Jul, [facility] [id number] [place] [address] 29489- 9702 Jul, [facility] [address] [place] [address] 98788- 3071 Jun, [facility] [address] [place] [address] 39549- 5332 Jun, Via [facility] [address] [place] [id number] Jun, Low back pain M54.5 ; Other chronic pain G89.29 and Coronary artery disease I25.10 [facility] [address]005[address] [address]- 5579 Jun, [facility] [address] [address]- 8766 May, [facility] [address] [address]- 5066 May, [facility] [id number] [place] [address] 98817- 7926 May, Other chronic pain G89.29 [facility] [address] [place] [address] 24728- 7746 May, [facility] [address] [id number] [address]- 7104 Apr, [facility] [id number] [place] [address] 62495- 0843 Apr, Acute cystitis without hematuria N30.00 [facility] [address] [address]- 7089 16 Apr, 2016 Acute cystitis without hematuria N30.00 ; Coronary artery disease I25.10 ; Low back pain M54.5 and Other chronic pain G89.29 [facility] [address] [address]- 4138 Apr, Other chronic pain G89.29 [facility] [address] [address]- 5918 March, Other chronic pain G89.29 [facility] [address] [address]- 2556 Feb, [facility] [address] [place] [address] 51719- 5042 Feb, Arthritis M19.90 [facility] [address] [address]- 6489 Feb, [facility] [address] [address]- 7061 Jan, [facility] [address] [address]- 4059 Jan, [facility] [address] [address]- 9132 Jan, Other chronic pain G89.29 [facility] [id number] [place] [address] 59779- 3376 Jan, Hypertension I10 ; Coronary artery disease I25.10 and Insomnia G47.00 [facility] [address] [address]- 2804 Jan, [facility] [address] [id number] [address]- 5685 Dec, Right hip pain M25.551 [facility] [id number] [place] [address] 49641- 3275 Dec, [facility] [address] [address]- 0870 Dec, [facility] [address] [address]- 0997 Dec, [facility] [address] [address]- 4674 Dec, Other chronic pain G89.29 [facility] [address]005[address] [address]- 0477 Dec, [facility] [address] [address]- 2057 Nov, [facility] [address] [address]- 2543 Nov, Other chronic pain G89.29 [facility] [address] [address] 254 Nov, Right hip pain M25.551 and Coronary artery disease I25.10 [facility] [address] [address]- 7441 Nov, Other chronic pain G89.29 [facility] [id number] [place] [address] 22333- 9786 Oct, [facility] [id number] [place] [address] 39315- 2072 Oct, [facility] [id number] [place] [address] 64272- 0866 Sep, [facility] [id number] [place] [address] 19154- 6964 Sep, [facility] [id number] [place] [address] 05814- 3083 Aug, [facility] [id number] [place] [address] 52509- 9604 Aug, Hypertension I10 ; Coronary artery disease I25.10 and Arthritis M19.90 [facility] [id number] [place] [address] 85003- 2435 Jun, [facility] [id number] [place] [address] 74329- 2897 Jun, Essential hypertension, benign 401.1 ; Other chronic pain 338.29 and Chronic airway obstruction, not elsewhere classified 496 [facility] [address] [address]- 1942 Jun, [facility] [address] [address]- 7626 Jun, [facility] [id number] [place] [address] 25043- 5444 Jun, [facility] [address] [id number] [address]- 3264 May, [facility] [id number] [place] [address] 49517- 8481 May, [facility] [address] [id number] [place] [address]- 7151 Apr, [facility] [address] [id number] [place] [address]- 9652 Apr, [facility] [address] [id number] [place] [address]- 5538 Apr, [facility] [address] [id number] [place] [address]- 5936 March, [facility] [address] [id number] [place] [address]- 5524 March, [facility] [address] [id number] [place] [address]- 3812 March, [facility] [address] [id number] [place] [address]- 9662 March, [facility] [address] [id number] [place] [address]- 0028 March, Sialadenitis 527.2 [facility] [address] [id number] [place] [address]- 1637 Feb, [facility] [address] [id number] [place] [address]- 1539 Feb, [facility] [address] [id number] [place] [address]- 2979 Feb, [facility] [address] [id number] [place] [address]- 0173 Feb, [facility] [address] [id number] [place] [address]- 5721 Feb, [facility] [address] [id number] [place] 1800 Jan, [facility] [address] [id number] [place] 8891 Jan, [facility] [address] [id number] [place] [address]- 3670 10 Jan, 2014 [facility] [place] [facility] [address] [id number] [place] [address]- 4653 Jan, [facility] [place] [facility] [address] [id number] [place] [address]- 5176 Jan, 2014 [facility] [place] [facility] [address] [id number] [place] [address]- 4270 Jan, [facility] [place] [facility] [address] [id number] [place] [address]- 5667 Dec, 2014 [facility] [place] [facility] [address] [id number] [place] [address]- 6468 Dec, 2014 [facility] [place] [facility] [address] [id number] [place] [address]- 3868 Dec, 2014 [facility] [place] [facility] [address] [id number] [place] [address]- 7243 Dec, 2014 [facility] [place] [facility] [address] [id number] [place] [address]- 3550 Dec, [facility] [place] [facility] [address] [id number] [place] [address]- 7711 Dec, [facility] [place] [facility] [address] [id number] [place] [address]- 4484 Nov, [facility] [place] [facility] [address] [id number] [place] [address]- 5152 Nov, [facility] [place] [facility] [address] [id number] [place] [address]- 9483 Nov, [facility] [place] [facility] [address] [id number] [place] [address]- 5494 Nov, [facility] [place] [facility] [address] [id number] [place] [address]- 6792 Nov, [facility] [place] [facility] [address] [id number] [place] [address]- 2545 Nov, [facility] [place] [facility] [address] [id number] [place] [address]- 3545 Nov, [facility] [place] [facility] [address] [id number] [place] [address]- 9098 Nov, [facility] [place] [facility] [address] [id number] [place] [address]- 3023 Nov, [facility] [place] [facility] [address] [id number] [place] [address]- 3825 Nov, [facility] [place] [facility] [address] [id number] [place] [address]- 1726 Nov, [facility] [place] [facility] [address] [id number] [place] [address]- 3574 Nov, [facility] [place] [facility] [address] [id number] [place] [address]- 3807 Nov, [facility] [place] [facility] [address] [id number] [place] [address]- 3803 Nov, [facility] [place] [facility] [address] [id number] [place] [address]- 7764 Oct, [facility] [place] [facility] [address] [id number] [place] [address]- 0035 Oct, [facility] [place] [facility] [address] [id number] [address]- 5859 19 Oct, 2014 [facility] [place] [facility] [address] [id number] [place] [address]- 0399 18 Oct, 2014 [facility] [place] [facility] [address] [id number] [place] [address]- 8311 18 Oct, 2014 [facility] [place] [facility] [address] [id number] [place] [address]- 5179 17 Oct, 2014 [facility] [place] [facility] [address] [id number] [place] [address]- 7302 17 Oct, 2014 [facility] [place] [facility] [address] [id number] [place] [address]- 7499 Oct, [facility] [place] [facility] [address] [id number] [place] [address]- 0113 Oct, [facility] [place] [facility] [address] [id number] [place] [address]- 0248 Sep, [facility] [place] [facility] [address] [id number] [place] [address]- 6577 Sep, [facility] [place] [facility] [address] [id number] [place] [address]- 1995 Sep, [facility] [place] [facility] [address] [id number] [place] [address]- 4701 Sep, [facility] [place] [facility] [address] [id number] [place] [address]- 8282 Sep, [facility] [place] [facility] [address] [id number] [place] [address]- 6103 Sep, [facility] [place] [facility] [address] [id number] [place] [address]- 9034 Sep, [facility] [place] [facility] [address] [id number] [place] [address]- 8727 Sep, [facility] [place] [facility] [address] [facility] [id number] [place] [address]- 2555 Sep, [facility] [place] [facility] [address] [id number] [place] [address] Sep, [facility] [place] [facility] [address] [id number] [place] [address] Sep, [facility] [place] [facility] [address] [id number] [place] [address] Sep, [facility] [place] [facility] [address] [id number] [place] [address] Aug, [facility] [place] [facility] [address] [id number] [place] [address] Aug, [facility] [place] [facility] [address] [id number] [place] [address] 29 Aug, 2013 [facility] [place] [facility] [address] [id number] [place] [address] 29 Aug, 2014 [facility] [place] [facility] [address] [id number] [place] [address] 28 Aug, 2014 [facility] [place] [facility] [address] [id number] [place] [address] 28 Aug, 2014 [facility] [place] [facility] [address] [id number] [place] [address] Aug, [facility] [place] [facility] [address] [id number] [place] [address] 17 Aug, 2013 [facility] [place] [facility] [address] [id number] [place] [address] 30 Jul, 2013 [facility] [place] [facility] [address] [id number] [place] [address] 30 Sep, 2013 [facility] [place] [facility] [address] [id number] [place] [address] 30 Jul, 2013 [facility] [place] [facility] [address] [id number] [place] [address] 30 Sep, 2013 [facility] [place] [facility] [address] [id number] [place] [address] 25 Sep, 2013 [facility] [place] [facility] [address] [id number] [place] [address] 25 Sep, 2013 [facility] [place] [facility] [address] [id number] [place] [address] 15 Sep, 2013 [facility] [place] [facility] [address] [id number] [place] [address] 15 Sep, 2013 [facility] [place] [facility] [address] [id number] [place] [address] 11 Sep, 2013 [facility] [place] [facility] [address] [id number] [place] [address] Jul, [facility] [place] [facility] [address] [id number] [place] [address] Jun, [facility] [place] [facility] [address] [id number] [place] [address] Jun, [facility] [place] [facility] [address] [id number] [place] [address] Jun, [facility] [place] [facility] [address] [id number] [place] [address] Jun, [facility] [place] [facility] [address] [id number] [place] [address] Jun, [facility] [place] [facility] [address] [id number] [place] [address] Jun, [facility] [place] [facility] [address] [id number] [place] [address] Jun, [facility] [place] [facility] [address] [id number] [place] [address]- [address] Jun, [facility] [place] [facility] [address] [id number] [place] [address] Jun, [facility] [place] [facility] [address] [id number] [place] [address] Jun, [facility] [place] [facility] [address] [id number] [place] [address] Jun, [facility] [place] [facility] [address] [id number] [place] [address] Jun, [facility] [place] [facility] [address] [id number] [place] [address] Jun, [facility] [place] [facility] [address] [id number] [place] [address] Jun, [facility] [place] [facility] [address] [id number] [place] [address] Jun, [facility] [place] [facility] [address] [id number] [place] [address] Jun, [facility] [place] [facility] [address] [id number] [place] [address] Jun, [facility] [place] [facility] [address] [id number] [place] [address] Jun, [facility] [place] [facility] [address] [id number] [place] [address] 9089 Jun, [facility] [place] [facility] [address] [id number] [place] [address] Jun, [facility] [place] [facility] [address] [id number] [place] [address] 9[address] Jun, [facility] [place] [facility] [address] [id number] [place] [address] 1273 Jun, [facility] [place] [facility] [address] [id number] [place] [address] 37[address] May, [facility] [place] [facility] [address] [id number] [place] [address] 9967 May, [facility] [place] [facility] [address] [id number] [place] [address]- 1310 May, [facility] [place] [facility] [address] [id number] [place] [address]- 3[address] May, [facility] [place] [facility] [address] [id number] [place] [address]- 9140 May, [facility] [place] [facility] [address] [id number] [place] [address] 6258 May, [facility] [place] [facility] [address] [id number] [place] [address]- 9032 May, [facility] [place] [facility] [address] [id number] [place] [address]- 2366 May, [facility] [place] [facility] [address] [id number] [place] [address]- 3347 May, [facility] [place] [facility] [address] [id number] [place] [address]- 6046 May, [facility] [place] [facility] [address] [id number] [place] [address]- 4967 May, [facility] [place] [facility] [address] [id number] [place] [address]- 7729 May, [facility] [place] [facility] [address] [id number] [place] [address]- 5361 May, [facility] [place] [facility] [address] [id number] [place] [address]- 5206 Apr, [facility] [place] [facility] [address] [id number] [place] [address]- 0973 Apr, [facility] [place] [facility] [address] [id number] [place] [address]- 3233 Apr, [facility] [place] [facility] [address] [id number] [place] [address]- 3623 Apr, [facility] [place] [facility] [address] [id number] [place] [address]- 9919 Apr, [facility] [place] [facility] [address] [id number] [place] [address]- 3092 Apr, [facility] [place] [facility] [address] [id number] [place] [address]- 2807 Apr, [facility] [place] [facility] [address] [id number] [place] [address]- 8962 Apr, [facility] [place] [facility] [address] [id number] [place] [address]- 9192 Apr, [facility] [place] [facility] [address] [id number] [place] [address]- 9751 March, [facility] [place] [facility] [address] [id number] [place] [address]- 0616 March, [facility] [place] [facility] [address] [id number] [place] [address]- 3980 March, [facility] [address] [id number] [place] [address] 230[address] March, [facility] [address] [id number] [place] [address] 9490 March, [facility] [address] [id number] [place] [address]- 6100 March, [facility] [place] [facility] [address] [id number] [place] [address]- 0577 March, [facility] [address] [id number] [place] [address]- 1672 March, [facility] [address] [id number] [place] [address]- 5029 March, [facility] [address] [id number] [place] [address]- 0401 March, [facility] [address] [id number] [place] [address]- 0352 March, [facility] [address] [id number] [place] [address]- 0407 March, [facility] [address] [id number] [place] [address]- 2236 March, [facility] [address] [id number] [place] [address]- 8422 March, [facility] [place] [facility] [address] [id number] [place] [address]- 9653 March, [facility] [place] [facility] [address] [id number] [place] [address] 3330 March, [facility] [place] [facility] [address] [id number] [place] [address] 1924 March, [facility] [place] [facility] [address] [id number] [place] [address] March, [facility] [place] [facility] [address] [id number] [place] [address]- 6432 March, [facility] [place] [facility] [address] [id number] [place] [address]- 2479 March, [facility] [place] [facility] [address] [id number] [place] [address]- 3044 Feb, [facility] [place] [facility] [address] [id number] [place] [address] 3837 Feb, [facility] [place] [facility] [address] [id number] [place] [address]- 3380 Feb, [facility] [place] [facility] [address] [id number] [place] [address]- 2640 Feb, [facility] [place] [facility] [address] [id number] [place] [address]- 2126 Feb, [facility] [place] [facility] [address] [id number] [place] [address]- 8433 Feb, [facility] [place] [facility] [address] [id number] [place] [address]- 0248 Feb, [facility] [place] [facility] [address] [id number] [place] [address]- 3492 Feb, [facility] [place] [facility] [address] [id number] [place] [address]- 4435 Jan, [facility] [place] [facility] [address] [id number] [place] [address]- 6742 Jan, [facility] [place] [facility] [address] [id number] [place] [address]- 3551 24 Jan, 2014 [facility] [place] [facility] [address] [id number] [place] [address]- 2328 24 Jan, 2014 [facility] [place] [facility] [address] [id number] [place] [address]- 3491 13 Jan, 2014 [facility] [place] [facility] [address] [id number] [place] [address]- 8518 Jan, [facility] [place] [facility] [address] [id number] [place] [address]- 6672 Jan, [facility] [place] [facility] [address] [id number] [place] [address]- 8926 Jan, [facility] [place] [facility] [address] [facility] [id number] [place] [address]- 1604 Jan, [facility] [place] [facility] [address] [id number] [place] [address]- 8404 Jan, [facility] [place] [facility] [address] [id number] [place] [address]- 5764 Dec, [facility] [place] [facility] [address] [id number] [place] [address]- 9815 Dec, [facility] [place] [facility] [address] [id number] [place] [address]- 3056 Dec, [facility] [place] [facility] [address] [id number] [place] [address]- 6262 Dec, [facility] [place] [facility] [address] [id number] [place] [address]- 4939 Dec, [facility] [place] [facility] [address] [facility] [id number] [place] [address]- 3912 Dec, [facility] [place] [facility] [address] [id number] [place] [address]- 3813 Dec, [facility] [place] [facility] [address] [id number] [place] [address]- 4951 Dec, [facility] [place] [facility] [address] [id number] [place] [address]- 2527 Nov, [facility] [place] [facility] [address] [id number] [place] [address]- 1778 Nov, [facility] [place] [facility] [address] [facility] [id number] [place] [address]- 9405 Nov, [facility] [place] [facility] [address] [id number] [place] [address]- 0424 Nov, [facility] [place] [facility] [address] [id number] [place] [address]- 8208 Nov, [facility] [place] [facility] [address] [id number] [place] [address]- 1546 Nov, [facility] [place] [facility] [address] [id number] [place] [address]- 6610 Nov, [facility] [place] [facility] [address] [id number] [place] [address]- 4401 Nov, [facility] [place] [facility] [address] [id number] [place] [address]- 9381 Nov, [facility] [place] [facility] [address] [id number] [place] [address]- 5645 Nov, [facility] [place] [facility] [address] [id number] [place] [address]- 8066 Nov, [facility] [place] [facility] [address] [id number] [place] [address]- 3790 Nov, [facility] [place] [facility] [address] [id number] [place] [address]- 7387 Nov, [facility] [place] [facility] [address] [id number] [place] [address]- 3075 Oct, [facility] [place] [facility] [address] [id number] [place] [address]- 4616 Oct, [facility] [place] [facility] [address] [id number] [place] [address]- 8254 Oct, [facility] [place] [facility] [address] [id number] [place] [address]- 2546 Oct, [facility] [place] [facility] [address] [id number] [place] [address]- 5596 Oct, [facility] [place] [facility] [address] [id number] [place] [address]- 9201 Oct, [facility] [address] [id number] [place] [address]- 3368 18 Oct, 2013 [facility] [place] [facility] [address] [id number] [place] [address]- 7228 18 Oct, 2013 [facility] [place] [facility] [address] [facility] [id number] [place] [address]- 1364 Oct, [facility] [place] [facility] [address] [id number] [place] [address]- 3737 Oct, [facility] [place] [facility] [address] [id number] [place] [address]- 7312 Oct, [facility] [place] [facility] [address] [id number] [place] [address]- 4831 Oct, [facility] [place] [facility] [address] [id number] [place] [address]- 8236 Oct, [facility] [place] [facility] [address] [id number] [address]- 3203 Oct, [facility] [place] [facility] [address] [id number] [place] [address]- 4704 14 Sep, 2013 [facility] [place] [facility] [address] [id number] [address]- 1165 14 Sep, 2013 [facility] [place] [facility] [address] [id number] [address]- 8511 05 Sep, 2013 [facility] [place] [facility] [address] [id number] [address]- 5601 05 Sep, 2013 [facility] [place] [facility] [address] [id number] [address]- 0557 Sep, [facility] [place] [facility] [address] [id number] [address]- 3583 Sep, [facility] [place] [facility] [address] [facility] [id number] [address]- 6172 Sep, [facility] [place] [facility] [address] [id number] [place] [address]- 8183 Sep, [facility] [place] [facility] [address] [id number] [place] [address]- 0814 Sep, [facility] [place] [facility] [address] [id number] [place] [address]- 4808 Sep, [facility] [place] [facility] [address] [id number] [place] [address]- 9408 Aug, [facility] [place] [facility] [address] [id number] [place] [address]- 1622 Aug, [facility] [place] [facility] [address] [id number] [place] [address]- 0502 Aug, [facility] [place] [facility] [address] [id number] [place] [address]- 5256 Aug, [facility] [place] [facility] [address] [id number] [place] [address]- 2407 Aug, [facility] [place] [facility] [address] [id number] [place] [address]- 6113 Aug, [facility] [place] [facility] [address] [id number] [place] [address]- 1331 Aug, [facility] [place] [facility] [address] [id number] [place] [address]- 1907 Aug, [facility] [place] [facility] [address] [id number] [place] [address]- 6550 Aug, [facility] [place] [facility] [address] [id number] [place] [address]- 7058 Aug, [facility] [place] [facility] [address] [id number] [place] [address]- 3471 Aug, [facility] [place] [facility] [address] [id number] [place] [address]- 7581 Aug, [facility] [place] [facility] [address] [id number] [place] [address]- 4291 Aug, [facility] [place] [facility] [address] [id number] [place] [address]- 7258 18 Aug, 2013 [facility] [place] [facility] [address] [id number] [place] [address]- 3527 17 Aug, 2013 [facility] [place] [facility] [address] [id number] [place] [address]- 6337 14 Aug, 2013 [facility] [place] [facility] [address] [id number] [place] [address]- 8083 14 Aug, 2013 [facility] [place] [facility] [address] [id number] [place] [address]- 7097 01 Aug, 2013 [facility] [place] [facility] [address] [id number] [place] [address]- 0529 20 Jul, 2013 [facility] [place] [facility] [address] [id number] [place] [address]- 9556 19 Jul, 2013 [facility] [place] [facility] [address] [id number] [place] [address]- 7488 18 Jul, 2013 [facility] [place] [facility] [address] [id number] [place] [address]- 7145 11 Jul, 2013 [facility] [place] [facility] [address] [id number] [place] [address]- 0615 11 Jul, 2013 [facility] [place] [facility] [address] [id number] [place] [address]- 1270 28 Jun, 2013 [facility] [place] [facility] [address] [id number] [place] [address]- 2045 Jun, [facility] [place] [facility] [address] [id number] [place] [address]- 4456 Jun, [facility] [place] [facility] [address] [id number] [place] [address]- 7750 15 Jun, 2013 [facility] [place] [facility] [address] [id number] [place] [address]- 2094 14 Jun, 2013 [facility] [place] [facility] [address] [id number] [place] [address]- 9089 Jun, [facility] [place] [facility] [address] [id number] [place] [address]- 1556 Jun, [facility] [place] [facility] [address] [id number] [place] [address]- 0273 Jun, [facility] [place] [facility] [address] [id number] [place] [address]- 1083 Jun, [facility] [place] [facility] [address] [id number] [place] [address]- 9264 Jun, [facility] [place] [facility] [address] [id number] [place] [address]- 2942 May, [facility] [place] [facility] [address] [id number] [place] [address]- 7481 May, [facility] [place] [facility] [address] [id number] [place] [address]- 4857 May, [facility] [place] [facility] [address] [id number] [place] [address]- 9901 May, [facility] [place] [facility] [address] [id number] [place] [address]- 7778 May, [facility] [place] [facility] [address] [id number] [place] [address]- 5948 May, [facility] [place] [facility] [address] [id number] [place] [address]- 3410 May, [facility] [place] [facility] [address] [id number] [place] [address]- 5371 May, [facility] [place] [facility] [address] [id number] [place] [address]- 8234 May, [facility] [place] [facility] [address] [id number] [place] [address]- 9746 Apr, [facility] [place] [facility] [address] [id number] [place] [address]- 9355 Apr, [facility] [place] [facility] [address] [id number] [place] [address]- 3836 Apr, [facility] [address] [id number] [place] [address]- 7076 Apr, [facility] [address] [id number] [place] [address]- 7184 Apr, [facility] [address] [id number] [place] [address]- 2873 Apr, [facility] [address] [id number] [place] [address]- 6552 Apr, [facility] [address] [id number] [place] [address]- 9770 March, [facility] [address] [id number] [place] [address]- 1033 Feb, [facility] [address] [id number] [place] [address]- 3122 Feb, [facility] [address] [id number] [place] [address]- 1163 Feb, [facility] [address] [id number] [place] [address]- 5850 Jan, [facility] [address] [id number] [place] [address]- 3298 Jan, [facility] [address] [id number] [place] [address]- 2067 Jan, [facility] [address] [id number] [place] [address]- 0687 14 Jan, 2013 [facility] [place] [facility] [address] [id number] [place] [address]- 1744 12 Jan, 2013 [facility] [address] [id number] [place] [address]- 2321 08 Jan, 2013 [facility] [address] [id number] [place] [address]- 2266 Jan, [facility] [address] [id number] [place] [address]- 5376 04 Jan, 2013 [facility] [place] [facility] [address] [id number] [place] [address]- 7871 28 Dec, 2012 [facility] [place] [facility] [address] [id number] [place] [address]- 7110 25 Dec, 2012 [facility] [place] [facility] [address] [id number] [place] [address]- 0802 13 Dec, 2012 [facility] [place] [facility] [address] [id number] [place] [address]- 5562 Dec, [facility] [place] [facility] [address] [id number] [place] [address]- 3324 07 Dec, 2012 [facility] [place] [facility] [address] [id number] [place] [address]- 1130 06 Dec, 2012 [facility] [place] [facility] [address] [id number] [place] [address]- 6809 05 Dec, 2012 [facility] [place] [facility] [address] [id number] [place] [address]- 2510 Nov, [facility] [place] [facility] [address] [id number] [place] [address]- 9757 24 Nov, 2012 [facility] [place] [facility] [address] [id number] [place] [address]- 0572 Nov, [facility] [place] [facility] [address] [id number] [place] [address]- 2960 15 Nov, 2012 [facility] [place] [facility] [address] [id number] [place] [address]- 5929 10 Nov, 2012 [facility] [place] [facility] [address] [id number] [place] [address]- 2626 Nov, [facility] [place] [facility] [address] [id number] [place] [address]- 9873 02 Nov, 2012 [facility] [place] [facility] [address] [id number] [place] [address]- 7180 Oct, [facility] [address] [id number] [place] [address]- 5805 Oct, [facility] [place] [facility] [address] [id number] [place] [address]- 7306 Oct, [facility] [address] [id number] [place] [address]- 5516 Oct, [facility] [address] [id number] [place] [address]- 0136 Oct, [facility] [address] [id number] [place] [address]- 7441 Oct, [facility] [address] [id number] [place] [address]- 7878 Oct, [facility] [address] [id number] [place] [address] Oct, [facility] [address] [id number] [place] [address] Oct, [facility] [address] [id number] [place] [address] Oct, [facility] [address] [id number] [place] [address] Oct, [facility] [place] [facility] [address] [id number] [place] [address] Oct, [facility] [address] [id number] [place] [address] Sep, [facility] [place] [facility] [address] [id number] [place] [address] Sep, [facility] [place] [facility] [address] [id number] [place] [address] Sep, [facility] [address] [id number] [id number] [address] Sep, [facility] [place] [facility] [address] [id number] [place] [address] Sep, [facility] [place] [facility] [address] [id number] [place] [address] Sep, [facility] [place] [facility] [address] [id number] [place] [address] Sep, [facility] [place] [facility] [address] [id number] [place] [address] Sep, [facility] [place] [facility] [address] [id number] [place] [address] Sep, [facility] [place] [facility] [address] [id number] [place] [address] Sep, [facility] [place] [facility] [address] [id number] [place] [address] Sep, [facility] [place] [facility] [address] [id number] [address] Aug, [facility] [place] [facility] [address] [id number] [address] Aug, [facility] [place] [facility] [address] [facility] [id number] [place] [address] Aug, [facility] [place] [facility] [address] [id number] [address] Aug, [facility] [place] [facility] [address] [id number] [address] Aug, [facility] [place] [facility] [address] [id number] [place] [address] Aug, [facility] [place] [facility] [address] [id number] [address] Aug, [facility] [place] [facility] [address] [facility] [id number] [place] [address] Aug, [facility] [place] [facility] [address] [id number] [place] [address] Aug, [facility] [place] [facility] [address] [id number] [place] [address] Aug, [facility] [place] [facility] [address] [id number] [place] [address] Jul, [facility] [place] [facility] [address] [id number] [place] [address] Jul, [facility] [place] [facility] [address] [id number] [place] [address] Jul, [facility] [place] [facility] [address] [id number] [place] [address] Jul, [facility] [place] [facility] [address] [id number] [place] [address] Jun, [facility] [place] [facility] [address] [id number] [place] [address] Jun, [facility] [place] [facility] [address] [id number] [place] [address] Jun, [facility] [place] [facility] [address] [id number] [place] [address] 69[address] Jun, [facility] [place] [facility] [address] [id number] [place] [address] 9549 Jun, [facility] [place] [facility] [address] [id number] [place] [address] Jun, [facility] [place] [facility] [address] [id number] [place] [address] Jun, [facility] [place] [facility] [address] [id number] [place] [address] May, [facility] [place] [facility] [address] [id number] [place] [address] May, [facility] [place] [facility] [address] [id number] [place] [address] May, [facility] [place] [facility] [address] [id number] [place] [address]66 May, [facility] [place] [facility] [address] [id number] [place] [address]- [address]184 May, [facility] [place] [facility] [address] [id number] [place] [address]- [address] Apr, [facility] [place] [facility] [address] [id number] [place] [address] Apr, [facility] [place] [facility] [address] [id number] [place] [address] Apr, [facility] [place] [facility] [address] [id number] [place] [address]- 4964 Apr, [facility] [place] [facility] [address] [id number] [place] [address]41 Apr, [facility] [place] [facility] [address] [id number] [place] [address]- [address] March, [facility] [place] [facility] [address] [id number] [place] [address]- [address]83 March, [facility] [place] [facility] [address] [id number] [place] [address]- [address] March, [facility] [place] [facility] [address] [id number] [place] [address]15 March, [facility] [place] [facility] [address] [id number] [place] [address] March, [facility] [place] [facility] [address] [id number] [place] [address] 9026 March, [facility] [place] [facility] [address] [id number] [place] [address] March, [facility] [place] [facility] [address] [id number] [place] [address] March, [facility] [place] [facility] [address] [id number] [place] [address] March, [facility] [address] [id number] [place] [address]60 March, [facility] [place] [facility] [address] [id number] [place] [address]451 Feb, [facility] [place] [facility] [address] [id number] [place] [address] Feb, [facility] [place] [facility] [address] [id number] [place] [address] 9257 Feb, [facility] [place] [facility] [address] [id number] [place] [address]- 9567 Feb, [facility] [place] [facility] [address] [id number] [place] [address]- 9796 Feb, [facility] [place] [facility] [address] [id number] [place] [address]- 1752 Feb, [facility] [place] [facility] [address] [id number] [place] [address]- 8450 Feb, [facility] [place] [facility] [address] [id number] [place] [address]- 5787 Feb, [facility] [place] [facility] [address] [id number] [place] [address]- 6913 Feb, [facility] [place] [facility] [address] [id number] [place] [address]- 36[address] Jan, [facility] [place] [facility] [address] [id number] [address]- [address] Jan, [facility] [place] [facility] [address] [id number] [place] [address]- 4412 Jan, [facility] [place] [facility] [address] [id number] [place] [address]- 4[address] Jan, [facility] [place] [facility] [address] [id number] [place] [address]- 9113 Dec, [facility] [place] [facility] [id number] [address] Dec, [facility] [id number] [address] Nov, [facility] [id number] [address] [address] Nov, [facility] [address] [id number] [address] Nov, [facility] [id number] [address] Nov, [facility] [id number] [place] [address] Nov, [facility] [id number] [address] Oct, [facility] [id number] [place] [id number] Oct, [facility] [id number] [address] Oct, [facility] [id number] [address] Oct, [facility] [id number] [address] Oct, [facility] [id number] [address] Oct, [facility] [id number] [address] Oct, [facility] [id number] [address] Oct, [facility] [id number] [address] Sep, IMMUNIZATIONS No Known Immunizations SOCIAL HISTORY Never Assessed REASON FOR VISIT Controlled Med Refill PLAN OF CARE VITAL SIGNS MEDICATIONS Medication Instructions Dosage Frequency Start Date End Date Duration Status Tramadol HCl 50 mg Orally 3 times a day 1 tablet as needed 8h Dec, 28 days Active RESULTS No Results PROCEDURES No Known procedures INSTRUCTIONS MEDICATIONS ADMINISTERED No Known Medications MEDICAL (GENERAL) HISTORY Type Description Date 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
--- OUTSIDE RECORDS SUMMARY | 2018-09-04 11:44 | XMS REPORT ---
Author Author SHAHNAZ MARQUEZ [facility] Address [address] [place] [address] Care Team Providers Care [employer] Social Worker Name Role Phone SHAHNAZ MARQUEZ Unavailable PROBLEMS Type Condition ICD9-CM Code IHS71-KJ Code Onset Dates Condition Status SNOMED Code Problem Low back pain M54.5 Active 840111850 Problem Ventral hernia without obstruction or gangrene K43.9 Active 567965777 Problem Type 2 diabetes mellitus without complication, without long-term current use of insulin E11.9 Active 675523640 Problem Hypertension I10 Active 07232043 Problem Coronary artery disease I25.10 Active 65166235 Problem Hyperlipidemia E78.5 Active 02605507 Problem Other chronic pain G89.29 Active 39475976 Problem Paroxysmal atrial fibrillation I48.0 Active 632370955 Problem Insomnia G47.00 Active 632573465 Problem Pharyngeal dysphagia R13.13 Active 46399003904032 Problem Reactive depression F32.9 Active 10609813 Problem Peripheral vascular disease I73.9 Active 527607623 Problem Anxiety F41.9 Active 21146440 ALLERGIES No Information ENCOUNTERS Encounter Location Date Diagnosis Via [employer] [place] [employer] [address] [place] [id number] May, Anxiety F41.9 ; Type 2 diabetes mellitus without complication, without long-term current use of insulin E11.9 ; Hypertension I10 ; Low back pain M54.5 ; Paroxysmal atrial fibrillation I48.0 and 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 [facility] [address] [facility] [id number], [place] [address] May, Other chronic pain G89.29 Via [facility] [address] [place] [id number] May, Low back pain M54.5 [facility] [address] [id number], [place] [address] May, [facility] [address] [facility] [id number], [place] [address] Apr, Other chronic pain G89.29 [facility] [address] [id number], [place] [address] Apr, [facility] [address] [facility] [id number], [place] [address] Apr, Via [employer] [address] [place] [id number] Apr, Closed compression fracture of L3 lumbar vertebra with routine healing, subsequent encounter S32.030D [facility] [employer] [address] [place] [id number] Apr, Low back pain M54.5 [facility] [employer] [address] [place] [id number] Apr, Coccydynia M53.3 [facility] [address] [facility] [id number] [place] [address] 88642- 4391 March, [facility] [address] [facility] [id number] [place] [address] 65365- 8037 March, Other chronic pain G89.29 [facility] [id number] [place] [address] 74441- 9813 March, [facility] [address] [facility] [id number], [place] [address] March, [facility] [address] [facility] [id number], [place] [address] Feb, [facility] [address] [facility] [id number], [place] [address] 164[address] Feb, Other chronic pain G89.29 [facility] [employer] [address] [place] [id number] Feb, Other chronic pain G89.29 and Anxiety F41.9 [facility] [address] [facility] [id number], [place] [address] 1698 Feb, [facility] [address] [id number] [address] [address] Jan, [facility] [address] [id number], [place] [address] 0944 Jan, [facility] [address]00565100[place], [place] [address] Jan, [place] [address] [id number], [place] [address] 2761 Jan, [facility] [address] [id number], [place] [address] Dec, [facility] [employer] [place] [employer] [address] [place] [address] Dec, Peripheral vascular disease I73.9 ; 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 ; Other chronic pain G89.29 ; Anxiety F41.9 ; Reactive depression F32.9 ; Insomnia G47.00 and Type 2 diabetes mellitus without complication, without long-term current use of insulin E11.9 [facility] [address] [id number] [place] [address] Nov [facility] [id number][place] [id number] Nov, Anxiety F41.9 [place] [address] [id number], [place] [address] Nov, [place] [id number] [id number] Nov, Anxiety F41.9 [facility] [employer] [place] [employer] [address] [facility] [place] [id number] Nov, Status post surgery Z98.890 ; Confused R41.0 ; Anxiety F41.9 and Other chronic pain G89.29 [facility] [id number][place] [address] Nov, Other chronic pain G89.29 [facility] [address] [facility] [id number], [place] [address] Oct, [place] [id number], [place] [address] Oct, Other chronic pain G89.29 [facility] [address]00565100[place], [place] [address] 2546 Oct, Anxiety F41.9 [facility] [id number][place] [address] Sep, Other chronic pain G89.29 [facility] [id number] [place] [id number] Sep, [facility] [address] [place] [id number] Aug, Dysuria R30.0 and Anxiety F41.9 [facility] [address]00565100[place], [place] [address] 2546 Aug, [facility] [id number] [place] [id number] Aug, Other chronic pain G89.29 [facility] [address]00565100[place], [place] [address]28 Jul, Other chronic pain G89.29 [facility] [id number], [place] [id number] Jun, [facility] [id number][place] [address] Jun, Other chronic pain G89.29 [facility] [address]00565100[place], [place] [address] 4226 Jun, [facility] [address] [id number], [place] [address] 9955 May, Other chronic pain G89.29 [facility] [id number] [place] [address]240 2546 Apr, Other chronic pain G89.29 [facility] [address] [place] [id number] Apr, Reactive depression F32.9 and Pharyngeal dysphagia R13.13 [facility] [address] [facility] [id number], [place] [address] 69[address] Apr, Urinary tract infection without hematuria, site unspecified N39.0 [facility] [address] [facility] [id number], [place] [address] March, Other chronic pain G89.29 [facility] [address] [facility] [id number], [place] [address] 7393 Feb, Other chronic pain G89.29 [facility] [address] [facility] [id number], [place] [address] 4[address] Feb, [facility] [id number] [place] [id number] Feb, [facility] [address] [place] [id number] Feb, Dysuria R30.0 and Ventral hernia without obstruction or gangrene K43.9 [facility] [address]00565100[place], [place] [address] 4450 Jan, Other chronic pain G89.29 [facility] [id number], [place] [address] Dec, Other chronic pain G89.29 [facility] [address] [id number], [place] [address] 2455 Nov, Other chronic pain G89.29 [facility] [employer] [address] [place] [id number] Nov, Lymphadenitis I88.9 [facility] [address] [facility] [id number], [place] [address] 1432 Nov, Other chronic pain G89.29 [facility] [address] [facility] [id number], [place] [address]45 Nov, [facility] [address] [id number] [id number] Nov, Other chronic pain G89.29 [facility] [employer] [address] [place] [id number] Oct, Low back pain M54.5 ; Hypertension I10 and Type 2 diabetes mellitus without complication, without long-term current use of insulin E11.9 [facility] [id number] [place] [address] 70936- 9549 Oct, [facility] [id number] [place] [address] 98877- 0491 Oct, [facility] [id number] [place] [address] 31167- 8995 Oct, [facility] [id number] [place] [address] 40355- 2511 Oct, [facility] [id number] [place] [address] 59089- 9853 Sep, [facility] [id number] [place] [address] 71651- 5835 Sep, [facility] [id number] [place] [address] 35874- 4065 Aug, Other chronic pain G89.29 [facility] [id number] [place] [address] 04988- 8552 Jul, [facility] [id number] [place] [address] 41482- 8009 Jul, [facility] [id number] [place] [address] 24115- 5619 Jul, [facility] [id number] [place] [address] 71303- 9375 Jun, [facility] [id number] [place] [address] 89696- 5934 Jun, Via [facility] [address] [place] [address] Jun, Low back pain M54.5 ; Other chronic pain G89.29 and Coronary artery disease I25.10 [facility] [address] [place] [address] 33028- 1021 Jun, [facility] [address]00565100[place], [place] [address]- 7090 May, [facility] [address]00565100[place], [place] [address]- 2045 May, [facility] [address]00565100[place], [place] [address]- 5625 May, Other chronic pain G89.29 [facility] [address] [id number], [place] [address]- 3234 May, [facility] [id number] [place] [address] 75999- 4224 Apr, [facility] [id number] [place] [address] 59332- 0197 Apr, Acute cystitis without hematuria N30.00 [facility] [id number] [place] [address] 44389- 8567 16 Apr, 2016 Acute cystitis without hematuria N30.00 ; Coronary artery disease I25.10 ; Low back pain M54.5 and Other chronic pain G89.29 [facility] [address]00565100[place], [place] [address]- 3562 Apr, Other chronic pain G89.29 [facility] [address]00565100[place], [place] [address]- 5962 March, Other chronic pain G89.29 [facility] [address]00565100[place], [place] [address]- 4452 Feb, [facility] [address]00565100[place], [place] [address]- 3909 Feb, Arthritis M19.90 [facility] [address]00565100[place], [place] [address]- 1818 Feb, [facility] [address]00565100[place], [place] [address]- 0489 Jan, [facility] [address]00565100[place], [place] [address]- 2677 Jan, [facility] [id number] [place] [address] 98441- 4924 Jan, Other chronic pain G89.29 [facility] [address] [place] [address] 96077- 1430 Jan, Hypertension I10 ; Coronary artery disease I25.10 and Insomnia G47.00 [facility] [id number] [place] [address] 29542- 9121 Jan, [facility] [id number] [place] [address] 17602- 3326 Dec, Right hip pain M25.551 [facility] [id number] [place] [address] 08039- 7719 Dec, [facility] [id number] [place] [address] 05054- 5157 Dec, [facility] [id number] [place] [address] 21475- 8000 Dec, [facility] [id number] [place] [address] 61210- 2987 Dec, Other chronic pain G89.29 [facility] [address]00565100[place], [place] [address]- 0216 Dec, [facility] [address]00565100[place], [place] [address]- 3162 Nov, [facility] [address]00565100[place], [place] [address] 254 Nov, Other chronic pain G89.29 [facility] [address]00565100[place], [place] [address] 2548 Nov, Right hip pain M25.551 and Coronary artery disease I25.10 [facility] [address] [place] [address] 32767- 5465 Nov, Other chronic pain G89.29 [facility] [address] [id number], [place] [address]- 0762 Oct, [facility] [id number] [place] [address] 10702- 5228 Oct, [facility] [id number] [place] [address] 23715- 4313 Sep, [facility] [id number] [place] [address] 56925- 7109 Sep, [facility] [id number] [place] [address] 57510- 4506 Aug, [facility] [id number] [place] [address] 07874- 6801 Aug, Hypertension I10 ; Coronary artery disease I25.10 and Arthritis M19.90 [facility] [id number] [place] [address] 15620- 9120 Jun, [facility] [id number] [place] [address] 03033- 4183 Jun, Essential hypertension, benign 401.1 ; Other chronic pain 338.29 and Chronic airway obstruction, not elsewhere classified 496 [facility] [address]00565100[place], [place] [address]- 1832 Jun, [facility] [id number] [place] [address] 24788- 8643 Jun, [facility] [address]00565100[place], [place] [address]- 0255 Jun, [facility] [id number] [place] [address] 49717- 7874 May, [facility] [address] [id number], [place] [address]- 4483 May, [facility] [id number] [place] [address] 19219- 1201 Apr, [facility] [address] [id number] [place] [address]- 5468 Apr, [facility] [address] [id number] [place] [address]- 5508 Apr, [facility] [address] [id number] [place] 9402 March, [facility] [address] [id number] [place] [address]- 2277 March, [facility] [address] [id number] [place] 0572 March, [facility] [address] [id number] [place] [address]- 1373 March, [facility] [address] [id number] [place] 5981 March, Sialadenitis 527.2 [facility] [address] [id number] [place] [address]- 5328 Feb, [facility] [address] [id number] [place] [address]- 1117 Feb, [facility] [address] [id number] [place] [address]- 2298 Feb, [facility] [address] [id number] [place] [address]- 0407 Feb, [facility] [address] [id number] [place] [address]- 8279 Feb, [facility] [address] [id number] [place] 4863 Jan, [facility] [address] [id number] [place] [address]- 4855 Jan, [facility] [address] [id number] [place] [address]- 8078 Jan, [facility] [address] [id number] [place] [address]- 5983 Jan, [facility] [place] [facility] [address] [id number] [place] [address]- 7506 Jan, [facility] [place] [facility] [address] [id number] [place] [address]- 7086 Jan, [facility] [place] [facility] [address] [id number] [place] [address]- 2439 Dec, 2014 [facility] [place] [facility] [address] [id number] [place] [address]- 8995 Dec, 2014 [facility] [place] [facility] [address] [id number] [place] [address]- 1820 Dec, 2014 [facility] [place] [facility] [address] [facility] [id number] [place] [address]- 0362 Dec, 2014 [facility] [place] [facility] [address] [id number] [place] [address]- 1227 Dec, [facility] [place] [facility] [address] [id number] [place] [address]- 8657 Dec, [facility] [place] [facility] [address] [facility] [id number] [place] [address]- 7359 Nov, [facility] [place] [facility] [address] [id number] [place] [address]- 2302 Nov, [facility] [place] [facility] [address] [id number] [place] [address]- 2545 Nov, [facility] [place] [facility] [address] [id number] [place] [address]- 6487 Nov, [facility] [place] [facility] [address] [id number] [place] [address]- 254 Nov, [facility] [place] [facility] [address] [id number] [place] [address]- 2544 Nov, [facility] [place] [facility] [address] [id number] [place] [address]- 7313 Nov, [facility] [place] [facility] [address] [id number] [place] [address]- 1780 Nov, [facility] [place] [facility] [address] [id number] [place] [address]- 7538 Nov, [facility] [place] [facility] [address] [facility] [id number] [place] [address]- 5610 Nov, [facility] [place] [facility] [address] [id number] [place] [address]- 5344 Nov, [facility] [place] [facility] [address] [id number] [place] [address]- 8531 Nov, [facility] [place] [facility] [address] [id number] [place] [address]- 3666 Nov, [facility] [place] [facility] [address] [id number] [place] [address]- 9208 Nov, [facility] [place] [facility] [address] [id number] [place] [address]- 1500 Oct, [facility] [place] [facility] [address] [id number] [place] [address]- 2688 Oct, [facility] [place] [facility] [address] [id number] [place] [address]- 3885 Oct, [facility] [place] [facility] [address] [id number], [place] [address]- 3621 18 Oct, 2014 [facility] [place] [facility] [address] [id number], [place] [address]- 3141 18 Oct, 2014 [facility] [place] [facility] [address] [id number] [place] [address]- 4347 17 Oct, 2014 [facility] [place] [facility] [address] [id number] [place] [address]- 0340 17 Oct, 2014 [facility] [place] [facility] [address] [id number] [place] [address]- 8784 10 Oct, 2014 [facility] [place] [facility] [address] [id number] [place] [address]- 7928 Oct, [facility] [place] [facility] [address] [id number] [place] [address]- 0802 Sep, [facility] [place] [facility] [address] [id number] [place] [address]- 5948 Sep, [facility] [place] [facility] [address] [id number] [place] [address]- 8621 Sep, [facility] [place] [facility] [address] [id number] [place] [address]- 2534 Sep, [facility] [place] [facility] [address] [id number] [place] [address]- 8985 Sep, [facility] [place] [facility] [address] [id number] [place] [address]- 4352 Sep, [facility] [place] [facility] [address] [id number] [place] [address]- 5159 Sep, [facility] [place] [facility] [address] [id number] [place] [address]- 1734 Sep, [facility] [place] [facility] [address] [id number] [place] [address]- 3147 Sep, [facility] [place] [facility] [address] [facility] [id number] [place] [address]- 7215 Sep, [facility] [place] [facility] [address] [id number] [place] [address]- 0242 Sep, [facility] [place] [facility] [address] [id number] [place] [address]- 0052 Sep, [facility] [place] [facility] [address] [id number] [place] [address]- 2102 Aug, [facility] [place] [facility] [address] [id number] [place] [address]- 7256 Aug, [facility] [place] [facility] [address] [id number] [place] [address]- 9372 Aug, [facility] [place] [facility] [address] [id number] [place] [address]- 6298 29 Aug, 2013 [facility] [place] [facility] [address] [id number] [place] [address]- 2837 28 Aug, 2014 [facility] [place] [facility] [address] [id number] [place] [address]- 3599 28 Aug, 2014 [facility] [place] [facility] [address] [id number] [place] [address]- 0188 Aug, [facility] [place] [facility] [address] [id number] [place] [address] 17 Aug, 2013 [facility] [place] [facility] [address] [id number] [place] [address] 30 Jul, 2013 [facility] [place] [facility] [address] [id number] [place] [address] 30 Jul, 2013 [facility] [place] [facility] [address] [id number] [place] [address] 30 Sep, 2013 [facility] [place] [facility] [address] [id number] [place] [address] 30 Sep, 2013 [facility] [place] [facility] [address] [id number] [place] [address]- [address] 25 Jul, 2013 [facility] [place] [facility] [address] [id number] [place] [address] 25 Sep, 2013 [facility] [place] [facility] [address] [id number], [place] [address] 15 Sep, 2013 [facility] [place] [facility] [address] [id number] [place] [address]- [address] 15 Sep, 2013 [facility] [place] [facility] [address] [id number] [place] [address]- [address]42 11 Jul, 2013 [facility] [place] [facility] [address] [id number] [place] [address]678 11 Jul, 2013 [facility] [place] [facility] [address] [id number] [place] [address] Jun, [facility] [place] [facility] [address] [id number] [place] [address] Jun, [facility] [place] [facility] [address] [id number] [place] [address] Jun, [facility] [place] [facility] [address] [id number] [place] [address]- [address]66 Jun, [facility] [place] [facility] [address] [id number] [place] [address]- [address] Jun, [facility] [place] [facility] [address] [id number] [place] [address]- [address] Jun, [facility] [place] [facility] [address] [id number] [place] [address]- [address]293 Jun, [facility] [place] [facility] [address] [id number] [place] [address]- [address] Jun, [facility] [place] [facility] [address] [id number] [place] [address]- [address] Jun, [facility] [place] [facility] [address] [id number] [place] [address]- [address]6 Jun, [facility] [place] [facility] [address] [id number] [place] [address]- [address] Jun, [facility] [place] [facility] [address] [id number] [place] [address]- [address] Jun, [facility] [place] [facility] [address] [id number] [place] [address]- [address] Jun, [facility] [place] [facility] [address] [id number] [place] [address] Jun, [facility] [place] [facility] [address] [id number] [place] [address]- [address] Jun, [facility] [place] [facility] [address] [id number] [place] [address]- [address] Jun, [facility] [place] [facility] [address] [id number] [place] [address] Jun, [facility] [place] [facility] [address] [id number] [place] [address] Jun, [facility] [place] [facility] [address] [id number] [place] [address]- [address] Jun, [facility] [place] [facility] [address] [id number] [place] [address]- [address]148 Jun, [facility] [place] [facility] [address] [id number] [place] [address] Jun, [facility] [place] [facility] [address] [id number] [place] [address]- [address]792 Jun, [facility] [place] [facility] [address] [id number] [place] [address] May, [facility] [place] [facility] [address] [id number] [place] [address]- [address] May, [facility] [place] [facility] [address] [id number] [place] [address]- [address] May, [facility] [place] [facility] [address] [id number] [place] [address]- [address] May, [facility] [place] [facility] [address] [id number] [place] [address] May, [facility] [place] [facility] [address] [id number] [place] [address]- [address] May, [facility] [place] [facility] [address] [id number] [place] [address] May, [facility] [place] [facility] [address] [id number] [place] [address] 1449 May, [facility] [place] [facility] [address] [id number] [place] [address] 13[address] May, [facility] [place] [facility] [address] [id number] [place] [address]- 9823 May, [facility] [place] [facility] [address] [id number] [place] [address]- 2019 May, [facility] [place] [facility] [address] [id number] [place] [address]- 4699 May, [facility] [place] [facility] [address] [id number] [place] [address]- 8785 May, [facility] [place] [facility] [address] [id number] [place] [address]- 8133 Apr, [facility] [place] [facility] [address] [id number] [place] [address]- 4081 Apr, [facility] [place] [facility] [address] [id number] [place] [address]- 0272 Apr, [facility] [place] [facility] [address] [id number] [place] [address]- 3006 Apr, [facility] [place] [facility] [address] [id number] [place] [address]- 1139 Apr, [facility] [place] [facility] [address] [id number] [place] [address]- 6610 Apr, [facility] [place] [facility] [address] [id number] [place] [address]- 2891 Apr, [facility] [place] [facility] [address] [id number] [place] [address]- 1578 Apr, [facility] [place] [facility] [address] [id number] [place] [address]- 2866 Apr, [facility] [place] [facility] [address] [id number] [place] [address]- 3583 March, [facility] [place] [facility] [address] [id number] [place] [address]- 0581 March, [facility] [place] [facility] [address] [id number] [place] [address]- 5322 March, [facility] [place] [facility] [address] [id number] [place] [address]- 9371 March, [facility] [address] [id number] [place] [address]- 4415 March, [facility] [address] [id number] [place] [address]- 1794 March, [facility] [address] [id number] [place] [address]- 6044 March, [facility] [place] [facility] [address] [id number] [place] [address]- 7676 March, [facility] [address] [id number] [place] [address]- 8605 March, [facility] [address] [id number] [place] [address]- 1611 March, [facility] [address] [id number] [place] [address]- 7171 March, [facility] [address] [id number] [place] [address]- 6713 March, [facility] [address] [id number] [place] [address]- 2053 March, [facility] [address] [id number] [place] [address]- 0600 March, [facility] [address] [id number] [place] [address]- 8110 March, [facility] [place] [facility] [address] [id number] [place] [address]- 0092 March, [facility] [place] [facility] [address] [id number] [place] [address]- 4200 March, [facility] [place] [facility] [address] [id number] [place] [address]- 6159 March, [facility] [place] [facility] [address] [id number] [place] [address] March, [facility] [place] [facility] [address] [id number] [place] [address]- 6866 March, [facility] [place] [facility] [address] [id number] [place] [address]- 2626 Feb, [facility] [place] [facility] [address] [id number] [place] [address]- 5736 Feb, [facility] [place] [facility] [address] [id number] [place] [address]- 7313 Feb, [facility] [place] [facility] [address] [id number] [place] [address]- 1526 Feb, [facility] [place] [facility] [address] [id number] [place] [address]- 4087 Feb, [facility] [place] [facility] [address] [id number] [place] [address]- 0094 Feb, [facility] [place] [facility] [address] [id number] [place] [address]- 8398 Feb, [facility] [place] [facility] [address] [id number] [place] [address]- 6997 Feb, [facility] [place] [facility] [address] [id number] [place] [address]- 1452 Jan, [facility] [place] [facility] [address] [id number] [place] [address]- 6173 Jan, [facility] [place] [facility] [address] [id number] [place] [address]- 8813 24 Jan, 2014 [facility] [place] [facility] [address] [id number] [place] [address]- 9933 24 Jan, 2014 [facility] [place] [facility] [address] [id number] [place] [address]- 1947 13 Jan, 2014 [facility] [place] [facility] [address] [id number] [place] [address]68 13 Jan, 2014 [facility] [place] [facility] [address] [id number] [place] [address]- 3785 Jan, [facility] [place] [facility] [address] [id number] [place] [address]- 2185 Jan, [facility] [place] [facility] [address] [id number] [place] [address]- 7829 Jan, [facility] [place] [facility] [address] [facility] [id number] [place] [address]- 6972 Jan, [facility] [place] [facility] [address] [id number] [place] [address]- 0243 Dec, [facility] [place] [facility] [address] [id number] [place] [address]- 1433 Dec, [facility] [place] [facility] [address] [facility] [id number] [place] [address]- 3504 Dec, [facility] [place] [facility] [address] [facility] [id number] [place] [address]- 5661 Dec, [facility] [place] [facility] [address] [id number] [place] [address]- 0619 Dec, [facility] [place] [facility] [address] [facility] [id number] [place] [address]- 9457 Dec, [facility] [place] [facility] [address] [facility] [id number] [place] [address]- 1333 Dec, [facility] [place] [facility] [address] [id number] [place] [address]- 5821 Dec, [facility] [place] [facility] [address] [facility] [id number][place] [address]- 5045 Nov, [facility] [place] [facility] [address] [id number] [place] [address]- 8676 Nov, [facility] [place] [facility] [address] [facility] [id number] [place] [address]- 5643 Nov, [facility] [place] [facility] [address] [facility] [id number] [place] [address]- 1360 Nov, [facility] [place] [facility] [address] [id number] [place] [address]- 9665 Nov, [facility] [place] [facility] [address] [id number] [place] [address]- 9429 Nov, [facility] [place] [facility] [address] [id number] [place] [address]- 6568 Nov, [facility] [place] [facility] [address] [id number] [place] [address]- 8377 Nov, [facility] [place] [facility] [address] [id number] [place] [address]- 9580 Nov, [facility] [place] [facility] [address] [id number] [place] [address]- 5124 Nov, [facility] [place] [facility] [address] [id number] [place] [address]- 9467 Nov, [facility] [place] [facility] [address] [id number] [place] [address]- 2293 Nov, [facility] [place] [facility] [address] [id number] [place] [address]- 1266 Nov, [facility] [place] [facility] [address] [id number] [place] [address]- 5637 Oct, [facility] [place] [facility] [address] [id number] [place] [address]- 9371 Oct, [facility] [place] [facility] [address] [id number] [place] [address]- 0607 Oct, [facility] [place] [facility] [address] [id number] [place] [address]- 9613 Oct, [facility] [place] [facility] [address] [id number] [place] [address]- 5874 Oct, [facility] [place] [facility] [address] [id number] [place] [address]878 Oct, [facility] [place] [facility] [address] [id number] [place] [address]- 2056 18 Oct, 2013 [facility] [address] [id number] [place] [address]- 9002 18 Oct, 2013 [facility] [place] [facility] [address] [id number] [place] [address]- 1745 17 Oct, 2013 [facility] [place] [facility] [address] [facility] [id number] [place] [address]- 8338 17 Oct, 2013 [facility] [place] [facility] [address] [id number] [place] [address]- 5055 Oct, [facility] [place] [facility] [address] [id number] [place] [address]- 3701 Oct, [facility] [place] [facility] [address] [id number] [place] [address]- 5834 Oct, [facility] [place] [facility] [address] [facility] [id number] [place] [address]- 5343 Oct, [facility] [place] [facility] [address] [id number], [place] [address]- 3486 14 Sep, 2013 [facility] [place] [facility] [address] [id number], [place] [address]- 7707 14 Sep, 2013 [facility] [place] [facility] [address] [id number], [place] [address]- 3577 05 Sep, 2013 [facility] [place] [facility] [address] [id number], [place] [address]- 4087 05 Sep, 2013 [facility] [place] [facility] [address] [id number], [place] [address]- 1881 Sep, [facility] [place] [facility] [address] [id number], [place] [address]- 5531 Sep, [facility] [place] [facility] [address] [id number], [place] [address]- 3074 Sep, [facility] [place] [facility] [address] [facility] [id number], [place] [address]- 6180 Sep, [facility] [place] [facility] [address] [id number] [place] [address]- 5920 Sep, [facility] [place] [facility] [address] [id number] [place] [address]- 7233 Sep, [facility] [place] [facility] [address] [id number] [place] [address]- 1277 Aug, [facility] [place] [facility] [address] [id number] [place] [address]- 2336 Aug, [facility] [place] [facility] [address] [id number] [place] [address]- 9404 Aug, [facility] [place] [facility] [address] [id number] [place] [address]- 6104 Aug, [facility] [place] [facility] [address] [id number] [place] [address]- 4497 Aug, [facility] [place] [facility] [address] [id number] [place] [address]- 0845 Aug, [facility] [place] [facility] [address] [id number] [place] [address]- 9636 Aug, [facility] [place] [facility] [address] [id number] [place] [address]- 4343 Aug, [facility] [place] [facility] [address] [id number] [place] [address]- 9786 Aug, [facility] [place] [facility] [address] [id number] [place] [address]- 9322 Aug, [facility] [place] [facility] [address] [id number], [place] [address]- 0097 Aug, [facility] [place] [facility] [address] [id number] [place] [address]- 2693 Aug, [facility] [place] [facility] [address] [id number] [place] [address]- 7570 Aug, [facility] [place] [facility] [address] [id number] [place] [address]- 5707 Aug, [facility] [place] [facility] [address] [id number] [place] [address]- 8413 17 Aug, 2013 [facility] [place] [facility] [address] [id number] [place] [address]- 0349 14 Aug, 2013 [facility] [place] [facility] [address] [id number] [place] [address]- 0451 14 Aug, 2013 [facility] [place] [facility] [address] [id number] [place] [address]- 9109 Aug, [facility] [place] [facility] [address] [id number] [place] [address]- 8754 20 Jul, 2013 [facility] [place] [facility] [address] [id number] [place] [address]- 9218 19 Jul, 2013 [facility] [address] [id number] [place] [address]- 7348 18 Jul, 2013 [facility] [place] [facility] [address] [id number] [place] [address]- 1111 11 Jul, 2013 [facility] [place] [facility] [address] [id number] [place] [address]- 1308 Jul, [facility] [place] [facility] [address] [id number] [place] [address]- 2120 28 Jun, 2013 [facility] [place] [facility] [address] [id number] [place] [address]- 0902 Jun, [facility] [place] [facility] [address] [id number] [place] [address]- 3095 Jun, [facility] [place] [facility] [address] [id number] [place] [address]- 6533 15 Jun, 2013 [facility] [place] [facility] [address] [id number] [place] [address]- 6823 14 Jun, 2013 [facility] [place] [facility] [address] [id number] [place] [address]- 2929 Jun, [facility] [place] [facility] [address] [id number] [place] [address]- 7766 Jun, [facility] [place] [facility] [address] [id number] [place] [address]- 2790 Jun, [facility] [place] [facility] [address] [id number] [place] 9776 Jun, [facility] [place] [facility] [address] [id number] [place] [address]- 3676 Jun, [facility] [place] [facility] [address] [id number] [place] [address]- 7700 May, [facility] [place] [facility] [address] [id number] [place] [address]- 7120 May, [facility] [place] [facility] [address] [id number] [place] [address]- 2879 May, [facility] [place] [facility] [address] [id number] [place] [address]- 7548 May, [facility] [place] [facility] [address] [id number] [place] [address]- 8389 May, [facility] [place] [facility] [address] [id number] [place] [address]- 8809 May, [facility] [place] [facility] [address] [id number] [place] [address]- 6956 May, [facility] [place] [facility] [address] [id number] [place] [address]- 9968 May, [facility] [place] [facility] [address] [id number] [place] [address]- 5683 May, [facility] [place] [facility] [address] [id number] [place] [address]- 1288 Apr, [facility] [place] [facility] [address] [id number] [place] [address]- 3647 Apr, [facility] [place] [facility] [address] [id number] [place] [address]- 2440 Apr, [facility] [place] [facility] [address] [id number] [place] [address]- 6015 Apr, [facility] [address] [id number] [place] [address]- 1658 Apr, [facility] [address] [id number] [place] [address]- 5249 Apr, [facility] [address] [id number] [place] [address]- 5757 Apr, [facility] [address] [id number] [place] [address]- 2201 March, [facility] [address] [id number] [place] [address]- 5913 Feb, [facility] [address] [id number] [place] [address]- 2368 Feb, [facility] [address] [id number] [place] [address]- 5316 Feb, [facility] [address] [id number] [place] [address]- 7981 Jan, [facility] [address] [id number] [place] [address]- 1296 Jan, [facility] [address] [id number] [place] [address]- 8717 Jan, [facility] [address] [id number] [place] [address]- 0409 14 Jan, 2013 [facility] [address] [id number] [place] [address]- 6002 12 Jan, 2013 [facility] [address] [id number] [place] [address]- 8825 08 Jan, 2013 [facility] [address] [id number] [place] [address]- 1486 07 Jan, 2013 [facility] [address] [id number] [place] [address]- 2105 Jan, [facility] [address] [id number] [place] [address]- 1308 28 Dec, 2012 [facility] [place] [facility] [address] [id number] [place] [address]- 3706 25 Dec, 2012 [facility] [place] [facility] [address] [id number] [place] [address]- 0076 13 Dec, 2012 [facility] [place] [facility] [address] [id number] [place] [address]- 7899 11 Dec, 2012 [facility] [place] [facility] [address] [id number] [place] [address]- 2894 07 Dec, 2012 [facility] [place] [facility] [address] [id number] [place] [address]- 5060 06 Dec, 2012 [facility] [place] [facility] [address] [id number] [place] [address]- 0223 05 Dec, 2012 [facility] [place] [facility] [address] [id number] [place] [address]- 7287 Nov, [facility] [place] [facility] [address] [id number] [place] [address]- 8499 Nov, [facility] [place] [facility] [address] [id number] [place] [address]- 3311 Nov, [facility] [place] [facility] [address] [id number] [place] [address]- 0293 Nov, [facility] [place] [facility] [address] [id number] [place] [address]- 0588 10 Nov, 2012 [facility] [place] [facility] [address] [id number] [place] [address]- 1181 Nov, [facility] [place] [facility] [address] [id number] [place] [address]- 1966 Nov, [facility] [place] [facility] [address] [id number] [place] [address]- 5007 Oct, [facility] [place] [facility] [address] [id number] [place] [address]- 9420 Oct, [facility] [address] [id number] [place] [address]- 5617 Oct, [facility] [place] [facility] [address] [id number] [place] [address]- 3016 Oct, [facility] [address] [id number] [place] [address]- 6976 Oct, [facility] [address] [id number] [place] [address]- 8765 Oct, [facility] [address] [id number] [place] [address]- 4343 Oct, [facility] [address] [id number] [place] [address]- 2627 Oct, [facility] [address] [id number] [place] [address]- 7645 Oct, [facility] [address] [id number] [place] [address]- 0016 Oct, [facility] [address] [id number] [place] [address]- 1124 Oct, [facility] [address] [id number] [place] [address]- 4057 Oct, [facility] [place] [facility] [address] [id number] [place] [address]- 0525 Sep, [facility] [address] [id number] [place] [address] Sep, [facility] [place] [facility] [address] [id number] [place] [address] Sep, [facility] [place] [facility] [address] [id number] [place] [address] Sep, [facility] [place] [facility] [address] [id number] [place] [address]681 Sep, [facility] [place] [facility] [address] [id number] [place] [address] Sep, [facility] [place] [facility] [address] [id number] [place] [address] 9814 Sep, [facility] [place] [facility] [address] [id number] [place] [address] Sep, [facility] [place] [facility] [address] [id number] [place] [address] Sep, [facility] [place] [facility] [address] [id number] [place] [address] Sep, [facility] [place] [facility] [address] [id number] [place] [address] Sep, [facility] [place] [facility] [address] [id number] [place] [address]68 Aug, [facility] [place] [facility] [address] [id number], [place] [address] Aug, [facility] [place] [facility] [address] [id number], [place] [address] Aug, [facility] [place] [facility] [address] [facility] [id number], [place] [address] Aug, [facility] [place] [facility] [address] [facility] [id number], [place] [address] Aug, [facility] [place] [facility] [address] [id number], [place] [address] Aug, [facility] [place] [facility] [address] [id number], [place] [address]44 Aug, [facility] [place] [facility] [address] [id number], [place] [address] Aug, [facility] [place] [facility] [address] [facility] [id number][place] [address] Aug, [facility] [place] [facility] [address] [id number], [place] [address] Aug, [facility] [place] [facility] [address] [id number] [place] [address] Jul, [facility] [place] [facility] [address] [id number] [place] [address] Jul, [facility] [place] [facility] [address] [id number] [place] [address]126 Jul, [facility] [place] [facility] [address] [id number] [place] [address] Jul, [facility] [place] [facility] [address] [id number] [place] [address] 37[address] Jun, [facility] [place] [facility] [address] [id number] [place] [address] 9795 Jun, [facility] [place] [facility] [address] [id number] [place] [address]- 2277 Jun, [facility] [place] [facility] [address] [id number] [place] [address]- 5484 Jun, [facility] [place] [facility] [address] [id number] [place] [address]- 6034 Jun, [facility] [place] [facility] [address] [id number] [place] [address]- 5972 Jun, [facility] [place] [facility] [address] [id number] [place] [address]- [address]15 Jun, [facility] [place] [facility] [address] [id number] [place] [address]- 1791 May, [facility] [place] [facility] [address] [id number] [place] [address]- 3178 May, [facility] [place] [facility] [address] [id number] [place] [address]- 0416 May, [facility] [place] [facility] [address] [id number] [place] [address]- 0656 May, [facility] [place] [facility] [address] [id number] [place] [address] 9023 May, [facility] [place] [facility] [address] [id number] [place] [address]- 7713 Apr, [facility] [place] [facility] [address] [id number] [place] [address]- 6826 Apr, [facility] [place] [facility] [address] [id number] [place] [address]- 4228 Apr, [facility] [place] [facility] [address] [id number] [place] [address]- 7297 Apr, [facility] [place] [facility] [address] [id number] [place] [address]- 4065 Apr, [facility] [place] [facility] [address] [id number] [place] [address]- 8921 March, [facility] [place] [facility] [address] [id number] [place] [address]- 2551 March, [facility] [place] [facility] [address] [id number] [place] [address]- 6847 March, [facility] [place] [facility] [address] [id number] [place] [address]- 1001 March, [facility] [place] [facility] [address] [id number] [place] [address] March, [facility] [place] [facility] [address] [id number] [place] [address] March, [facility] [place] [facility] [address] [id number] [place] [address]- 9954 March, [facility] [place] [facility] [address] [id number] [place] [address]- [address]126 March, [facility] [place] [facility] [address] [id number] [place] [address] March, [facility] [place] [facility] [address] [id number] [place] [address] March, [facility] [address] [id number] [place] [address]- 8981 30 Feb, 2012 [facility] [place] [facility] [address] [id number] [place] [address]- 9249 Feb, [facility] [place] [facility] [address] [id number] [place] [address]- 9627 Feb, [facility] [place] [facility] [address] [id number] [place] [address]- 4131 Feb, [facility] [place] [facility] [address] [id number] [place] [address]- 7355 Feb, [facility] [place] [facility] [address] [id number] [place] [address]- 0900 Feb, [facility] [place] [facility] [address] [id number] [place] [address]- 6151 Feb, [facility] [place] [facility] [address] [id number] [place] [address]- 2685 Feb, [facility] [place] [facility] [address] [id number] [place] [address]- 5897 Feb, [facility] [place] [facility] [address] [id number] [place] [address]- 9967 Jan, [facility] [place] [facility] [address] [id number] [place] [address]- 4963 Jan, [facility] [place] [facility] [address] [id number], [place] [address] Jan, [facility] [place] [facility] [address] [id number] [place] [address]- 0988 Jan, [facility] [place] [facility] [address] [id number] [place] [address]- 1671 Dec, [facility] [place] [facility] [address] [id number] [place] [address]- 9521 Dec, [facility] [place] [facility] [id number], [place] [address] 31 Nov, 2011 [facility] [id number], [place] [address] Nov, [facility] [address] [id number], [place] [address] Nov, [facility] [id number], [place] [address]- 8958 Nov, [facility] [address] [facility] [id number], [place] [address]- [address] Nov, [facility] [id number] [place] [address]- [address]71 Oct, [facility] [id number] [address]12 Oct, [facility] [id number] [place] [address]366 Oct, [facility] [id number], [place] [address]- 7152 Oct, [facility] [address] [id number], [place] [address] Oct, [facility] [id number], [place] [address] Oct, [facility] [id number], [place] [address] Oct, [facility] [id number] [place] [address] Oct, [facility] [id number] [address] Sep, IMMUNIZATIONS No Known Immunizations SOCIAL HISTORY Never Assessed REASON FOR VISIT MAIK antonio PLAN OF CARE VITAL SIGNS MEDICATIONS Unknown Medications RESULTS No Results PROCEDURES No Known procedures INSTRUCTIONS MEDICATIONS ADMINISTERED No Known Medications MEDICAL (GENERAL) HISTORY Type Description Date 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
--- OUTSIDE RECORDS SUMMARY | 2018-09-04 11:45 | XMS REPORT ---
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 Name Role Phone SHAHNAZ MARQUEZ Unavailable PROBLEMS Type Condition ICD9-CM Code PNW44-IW Code Onset Dates Condition Status SNOMED Code Problem Low back pain M54.5 Active 114008799 Problem Ventral hernia without obstruction or gangrene K43.9 Active 272739805 Problem Type 2 diabetes mellitus without complication, without long-term current use of insulin E11.9 Active 483428403 Problem Hypertension I10 Active 23619140 Problem Coronary artery disease I25.10 Active 59252703 Problem Hyperlipidemia E78.5 Active 76244725 Problem Other chronic pain G89.29 Active 62562705 Problem Paroxysmal atrial fibrillation I48.0 Active 054099696 Problem Insomnia G47.00 Active 034678627 Problem Pharyngeal dysphagia R13.13 Active 94425009497734 Problem Reactive depression F32.9 Active 49582927 Problem Peripheral vascular disease I73.9 Active 776289809 Problem Anxiety F41.9 Active 15326174 ALLERGIES No Information ENCOUNTERS Encounter Location Date Diagnosis Via [employer] Elma Airstone [address] [place] [id number] May, Anxiety F41.9 ; Type 2 diabetes mellitus without complication, without long-term current use of insulin E11.9 ; Hypertension I10 ; Low back pain M54.5 ; Paroxysmal atrial fibrillation I48.0 and 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 [facility] [address] [facility] [id number], [place] [address] May, Other chronic pain G89.29 Via [facility] [address] [place] [id number] May, Low back pain M54.5 [facility] [address] [id number], [place] [address] May, [facility] [address] [facility] [id number], [place] [address] Apr, Other chronic pain G89.29 [facility] [address] [id number], [place] [address] Apr, [facility] [address] [facility] [id number], [place] [address] Apr, Via [employer] [address] [place] [id number] Apr, Closed compression fracture of L3 lumbar vertebra with routine healing, subsequent encounter S32.030D Via [employer] [address] [place] [id number] Apr, Low back pain M54.5 Via [employer] [facility] [address] [place] [id number] Apr, Coccydynia M53.3 [facility] [address] [facility] [id number] [place] [address]62- 9158 March, [facility] [address] [facility] [id number] [place] [address]0522- 6796 March, Other chronic pain G89.29 [facility] [id number] [place] [address]13- 4088 March, [facility] [address] [facility] [id number], [place] [address] 7[address] March, [facility] [address] [facility] [id number], [place] [address] 4070 Feb, [facility] [address] [facility] [id number], [place] [address] 6[address] Feb, Other chronic pain G89.29 Via [employer] [address] [place] [id number] Feb, Other chronic pain G89.29 and Anxiety F41.9 [facility] [address] [facility] [id number], [place] [address] Feb, [facility] [address] [id number] [address] [address] Jan, [facility] [address] [id number], [place] [address] 6[address] Jan, [facility] [address]00565100[place], [place] [address] Jan, [place] [address] [id number], [place] [address] 9279 Jan, [facility] [address] [id number], [place] [address] Dec, Via [employer] Elma Airstone [address] [place] [address] Dec, Peripheral vascular disease I73.9 ; 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 ; Other chronic pain G89.29 ; Anxiety F41.9 ; Reactive depression F32.9 ; Insomnia G47.00 and Type 2 diabetes mellitus without complication, without long-term current use of insulin E11.9 [facility] [address] [id number] [place] [address] Nov [facility] [id number][place] [id number] Nov, Anxiety F41.9 [place] [address] [id number], [place] [address]79 Nov, [place] [id number][place] [id number] Nov, Anxiety F41.9 Via [employer] Elma Airstone [address] [place] [id number] Nov, Status post surgery Z98.890 ; Confused R41.0 ; Anxiety F41.9 and Other chronic pain G89.29 [facility] [id number], [place] [address] Nov, Other chronic pain G89.29 [facility] [address] [facility] [id number], [place] [address] Oct, [place] [id number], [place] [address] Oct, Other chronic pain G89.29 [facility] [address]00565100[place], [place] [address] Oct, Anxiety F41.9 [facility] [id number], [place] [address] Sep, Other chronic pain G89.29 [facility] [id number] [place] [id number] Sep, Via [employer] [address] [place] [id number] Aug, Dysuria R30.0 and Anxiety F41.9 [facility] [address]00565100[place], [place] [address] 2546 Aug, [facility] [id number] [place] [id number] Aug, Other chronic pain G89.29 [facility] [address]00565100[place], [place] [address] 83[address] Jul, Other chronic pain G89.29 [facility] [id number], [place] [address] Jun, [facility] [id number] [address] Jun, Other chronic pain G89.29 [facility] [address]00565100[place], [place] [address] Jun, [facility] [address] [id number], [place] [address] May, Other chronic pain G89.29 [facility] [address] [place] [address]459 2546 Apr, Other chronic pain G89.29 Via [employer] [facility] [address] [place] [id number] Apr, Reactive depression F32.9 and Pharyngeal dysphagia R13.13 [facility] [address] [facility] [id number], [place] [address] Apr, Urinary tract infection without hematuria, site unspecified N39.0 [facility] [address] [facility] [id number], [place] [address] March, Other chronic pain G89.29 [facility] [address] [facility] [id number], [place] [address] Feb, Other chronic pain G89.29 [facility] [address] [facility] [id number], [place] [address] 7964 Feb, [facility] [id number] [place] [id number] Feb, Via [facility] [facility] [address] [place] [id number] Feb, Dysuria R30.0 and Ventral hernia without obstruction or gangrene K43.9 [facility] [address]00565100[place], [place] [address] 9651 Jan, Other chronic pain G89.29 [facility] [id number], [place] [address] Dec, Other chronic pain G89.29 [facility] [address] [id number], [place] [address] 9826 Nov, Other chronic pain G89.29 Via [employer] [address] [place] [id number] Nov, Lymphadenitis I88.9 [facility] [address] [facility] [id number], [place] [address] Nov, Other chronic pain G89.29 [facility] [address] [facility] [id number][place] [address] Nov, [facility] [address] [id number] [address] Nov, Other chronic pain G89.29 Via [employer] [address] [place] [address] Oct, Low back pain M54.5 ; Hypertension I10 and Type 2 diabetes mellitus without complication, without long-term current use of insulin E11.9 [facility] [id number] [place] [address] 69557- 1972 Oct, [facility] [id number] [place] [address] 10768- 2304 Oct, [facility] [id number] [place] [address] 38125- 6564 Oct, [facility] [id number] [place] [address] 97605- 6938 Oct, [facility] [id number] [place] [address] 07498- 3464 Sep, [facility] [id number] [place] [address] 76936- 4896 Sep, [facility] [id number] [place] [address] 20909- 7271 Aug, Other chronic pain G89.29 [facility] [id number] [place] [address] 58419- 8325 Jul, [facility] [id number] [place] [address] 69680- 6038 Jul, [facility] [address] [place] [address] 63696- 7010 Jul, [facility] [id number] [place] [address] 49552- 7863 Jun, [facility] [address] [place] [address] 18097- 3332 Jun, [facility] [address] [place] [id number] Jun, Low back pain M54.5 ; Other chronic pain G89.29 and Coronary artery disease I25.10 [facility] [address] [place] [address] 40373- 3422 Jun, [facility] [address]00565100[place], [place] [address]- 6453 May, [facility] [address]00565100[place], [place] [address]- 6216 May, [facility] [address]00565100[place], [place] [address]- 9038 May, Other chronic pain G89.29 [facility] [address] 6592965100[place], [place] [address]- 2652 May, [facility] [id number] [place] [address] 49833- 5717 Apr, [facility] [id number] [place] [address] 85322- 6324 Apr, Acute cystitis without hematuria N30.00 [facility] [id number] [place] [address] 98967- 4060 16 Apr, 2016 Acute cystitis without hematuria N30.00 ; Coronary artery disease I25.10 ; Low back pain M54.5 and Other chronic pain G89.29 [facility] [address]00565[address], [place] [address]- 0355 Apr, Other chronic pain G89.29 [facility] [address]00565100[place], [place] [address]- 7481 March, Other chronic pain G89.29 [facility] [address]00565100[place], [place] [address]- 9863 Feb, [facility] [address]00565[address], [place] [address]- 2576 Feb, Arthritis M19.90 [facility] [address]00565100[place], [place] [address]- 6068 Feb, [facility] [address]00565100[place], [place] [address]- 9703 Jan, [facility] [address]00565100[place], [place] [address]- 2728 Jan, [facility] [id number] [place] [address] 11215- 9090 Jan, Other chronic pain G89.29 [facility] [address] [place] [address] 44931- 2985 Jan, Hypertension I10 ; Coronary artery disease I25.10 and Insomnia G47.00 [facility] [id number] [place] [address] 52990- 6410 Jan, [facility] [id number] [place] [address] 89563- 4847 Dec, Right hip pain M25.551 [facility] [id number] [place] [address] 30835- 9779 Dec, [facility] [id number] [place] [address] 35656- 1268 Dec, [facility] [address] [place] [address] 78219- 1968 Dec, [facility] [id number] [place] [address] 70901- 7929 Dec, Other chronic pain G89.29 [facility] [address], [place] [address]- 0756 Dec, [facility] [address], [place] [address]- 3444 Nov, [facility] [address], [place] [address] 2549 Nov, Other chronic pain G89.29 [facility] [address], [place] [address] 2544 Nov, Right hip pain M25.551 and Coronary artery disease I25.10 [facility] [address] [place] [address] 76741- 8582 Nov, Other chronic pain G89.29 [facility] [address] 6592965[place], [place] [address]- 8075 Oct, [facility] [id number] [place] [address] 43663- 3043 Oct, [facility] [id number] [place] [address] 66794- 4289 Sep, [facility] [id number] [place] [address] 15576- 1547 Sep, [facility] [id number] [place] [address] 33292- 7172 Aug, [facility] [id number] [place] [address] 60167- 0719 Aug, Hypertension I10 ; Coronary artery disease I25.10 and Arthritis M19.90 [facility] [id number] [place] [address] 84363- 3492 Jun, [facility] [id number] [place] [address] 33027- 4126 Jun, Essential hypertension, benign 401.1 ; Other chronic pain 338.29 and Chronic airway obstruction, not elsewhere classified 496 [facility] [address], [place] [address]- 6380 Jun, [facility] [id number] [place] [address] 27955- 8696 Jun, [facility] [address], [place] [address]- 0872 Jun, [facility] [id number] [place] [address] 34855- 5753 May, [facility] [address] 6592965[place], [place] [address]- 1894 May, [facility] [id number] [place] [address] 36808- 1963 Apr, [facility] [address] [id number] [place] [address]- 6345 Apr, [facility] [address] [id number] [place] [address]- 6706 Apr, [facility] [address] [id number] [place] 3455 March, [facility] [address] [id number] [place] [address]- 0880 March, [facility] [address] [id number] [place] 6514 March, [facility] [address] [id number] [place] [address]- 4754 March, [facility] [address] [id number] [place] 1400 March, Sialadenitis 527.2 [facility] [address] [id number] [place] [address]- 5139 Feb, [facility] [address] [id number] [place] [address]- 7706 Feb, [facility] [address] [id number] [place] [address]- 2220 Feb, [facility] [address] [id number] [place] [address]- 3672 Feb, [facility] [address] [id number] [place] [address]- 8016 Feb, [facility] [address] [id number] [place] 1385 Jan, [facility] [address] [id number] [place] [address]- 2052 Jan, [facility] [address] [id number] [place] [address]- 0133 Jan, [facility] [address] [id number] [place] [address]- 3916 Jan, [facility] [place] [facility] [address] [id number] [place] [address]- 7995 Jan, [facility] [place] [facility] [address] [id number] [place] [address]- 5266 Jan, [facility] [place] [facility] [address] [id number] [place] [address]- 7023 Dec, 2014 [facility] [place] [facility] [address] [id number] [place] [address]- 7890 Dec, 2014 [facility] [place] [facility] [address] [id number] [place] [address]- 3802 Dec, 2014 [facility] [place] [facility] [address] [facility] [id number] [place] [address]- 7911 Dec, 2014 [facility] [place] [facility] [address] [id number] [place] [address]- 3614 Dec, [facility] [place] [facility] [address] [id number] [place] [address]- 0950 Dec, [facility] [place] [facility] [address] [facility] [id number] [place] [address]- 2210 Nov, [facility] [place] [facility] [address] [id number] [place] [address]- 6262 Nov, [facility] [place] [facility] [address] [id number] [place] [address]- 2547 Nov, [facility] [place] [facility] [address] [id number] [place] [address]- 6943 Nov, [facility] [place] [facility] [address] [id number] [place] [address]- 254 Nov, [facility] [place] [facility] [address] [id number] [place] [address]- 2548 Nov, [facility] [place] [facility] [address] [id number] [place] [address]- 3384 Nov, [facility] [place] [facility] [address] [id number] [place] [address]- 9820 Nov, [facility] [place] [facility] [address] [id number] [place] [address]- 7655 Nov, [facility] [place] [facility] [address] [facility] [id number] [place] [address]- 1891 Nov, [facility] [place] [facility] [address] [id number] [place] [address]- 9113 Nov, [facility] [place] [facility] [address] [id number] [place] [address]- 9797 Nov, [facility] [place] [facility] [address] [id number] [place] [address]- 1895 Nov, [facility] [place] [facility] [address] [id number] [place] [address]- 1914 Nov, [facility] [place] [facility] [address] [id number] [place] [address]- 6325 Oct, [facility] [place] [facility] [address] [id number] [place] [address]- 4542 Oct, [facility] [place] [facility] [address] [id number] [place] [address]- 8172 Oct, [facility] [place] [facility] [address] [id number], [place] [address]- 6640 18 Oct, 2014 [facility] [place] [facility] [address] [id number], [place] [address]- 1502 18 Oct, 2014 [facility] [place] [facility] [address] [id number] [place] [address]- 5009 17 Oct, 2014 [facility] [place] [facility] [address] [id number] [place] [address]- 8863 17 Oct, 2014 [facility] [place] [facility] [address] [id number] [place] [address]- 4317 10 Oct, 2014 [facility] [place] [facility] [address] [id number] [place] [address]- 5089 Oct, [facility] [place] [facility] [address] [id number] [place] [address]- 8143 Sep, [facility] [place] [facility] [address] [id number] [place] [address]- 0583 Sep, [facility] [place] [facility] [address] [id number] [place] [address]- 9822 Sep, [facility] [place] [facility] [address] [id number] [place] [address]- 7384 Sep, [facility] [place] [facility] [address] [id number] [place] [address]- 0849 Sep, [facility] [place] [facility] [address] [id number] [place] [address]- 0667 Sep, [facility] [place] [facility] [address] [id number] [place] [address]- 9841 Sep, [facility] [place] [facility] [address] [id number] [place] [address]- 4720 Sep, [facility] [place] [facility] [address] [id number] [place] [address]- 3925 Sep, [facility] [place] [facility] [address] [facility] [id number] [place] [address]- 6578 Sep, [facility] [place] [facility] [address] [id number] [place] [address]- 9885 Sep, [facility] [place] [facility] [address] [id number] [place] [address] Sep, [facility] [place] [facility] [address] [id number] [place] [address] Aug, [facility] [place] [facility] [address] [id number] [place] [address] Aug, [facility] [place] [facility] [address] [id number] [place] [address] Aug, [facility] [place] [facility] [address] [id number] [place] [address] 29 Aug, 2013 [facility] [place] [facility] [address] [id number] [place] [address] 28 Aug, 2014 [facility] [place] [facility] [address] [id number] [place] [address] 28 Aug, 2014 [facility] [place] [facility] [address] [id number] [place] [address] Aug, [facility] [place] [facility] [address] [id number] [place] [address] 17 Aug, 2013 [facility] [place] [facility] [address] [id number] [place] [address] 30 Jul, 2013 [facility] [place] [facility] [address] [id number] [place] [address] 30 Jul, 2013 [facility] [place] [facility] [address] [id number] [place] [address] 30 Sep, 2013 [facility] [place] [facility] [address] [id number] [place] [address] 30 Sep, 2013 [facility] [place] [facility] [address] [id number] [place] [address] 25 Jul, 2013 [facility] [place] [facility] [address] [id number] [place] [address] 25 Sep, 2013 [facility] [place] [facility] [address] [id number] [address] 15 Sep, 2013 [facility] [place] [facility] [address] [id number] [place] [address] 15 Sep, 2013 [facility] [place] [facility] [address] [id number] [place] [address]- [address] 11 Jul, 2013 [facility] [place] [facility] [address] [id number] [place] [address] 11 Jul, 2013 [facility] [place] [facility] [address] [id number] [place] [address] Jun, [facility] [place] [facility] [address] [id number] [place] [address]- [address] Jun, [facility] [place] [facility] [address] [id number] [place] [address] Jun, [facility] [place] [facility] [address] [id number] [place] [address] Jun, [facility] [place] [facility] [address] [id number] [place] [address]- [address] Jun, [facility] [place] [facility] [address] [id number] [place] [address] Jun, [facility] [place] [facility] [address] [id number] [place] [address] Jun, [facility] [place] [facility] [address] [id number] [place] [address] Jun, [facility] [place] [facility] [address] [id number] [place] [address] Jun, [facility] [place] [facility] [address] [id number] [place] [address] Jun, [facility] [place] [facility] [address] [id number] [place] [address] Jun, [facility] [place] [facility] [address] [id number] [place] [address]- [address] Jun, [facility] [place] [facility] [address] [id number] [place] [address] Jun, [facility] [place] [facility] [address] [id number] [place] [address] Jun, [facility] [place] [facility] [address] [id number] [place] [address] Jun, [facility] [place] [facility] [address] [id number] [place] [address] 6[address] Jun, [facility] [place] [facility] [address] [id number] [place] [address] Jun, [facility] [place] [facility] [address] [id number] [place] [address] Jun, [facility] [place] [facility] [address] [id number] [place] [address] 1279 Jun, [facility] [place] [facility] [address] [id number] [place] [address] 9538 Jun, [facility] [place] [facility] [address] [id number] [place] [address] 4537 Jun, [facility] [place] [facility] [address] [id number] [place] [address] 1701 Jun, [facility] [place] [facility] [address] [id number] [place] [address]- 0468 May, [facility] [place] [facility] [address] [id number] [place] [address] 5795 May, [facility] [place] [facility] [address] [id number] [place] [address] 6671 May, [facility] [place] [facility] [address] [id number] [place] [address] 8248 May, [facility] [place] [facility] [address] [id number] [place] [address]- 3686 May, [facility] [place] [facility] [address] [id number] [place] [address]- 2862 May, [facility] [place] [facility] [address] [id number] [place] [address]- 3814 May, [facility] [place] [facility] [address] [id number] [place] [address]- 7429 May, [facility] [place] [facility] [address] [id number] [place] [address]- 0067 May, [facility] [place] [facility] [address] [id number] [place] [address]- 2332 May, [facility] [place] [facility] [address] [id number] [place] [address]- 6980 May, [facility] [place] [facility] [address] [id number] [place] [address]- 2281 May, [facility] [place] [facility] [address] [id number] [place] [address]- 2039 May, [facility] [place] [facility] [address] [id number] [place] [address]- 9334 Apr, [facility] [place] [facility] [address] [id number] [place] [address]- 0959 Apr, [facility] [place] [facility] [address] [id number] [place] [address]- 1618 Apr, [facility] [place] [facility] [address] [id number] [place] [address]- 7439 Apr, [facility] [place] [facility] [address] [id number] [place] [address]- 7839 Apr, [facility] [place] [facility] [address] [id number] [place] [address]- 1379 Apr, [facility] [place] [facility] [address] [id number] [place] [address]- 9896 Apr, [facility] [place] [facility] [address] [id number] [place] [address]- 9496 Apr, [facility] [place] [facility] [address] [id number] [place] [address]- 4953 Apr, [facility] [place] [facility] [address] [id number] [place] [address]- 0920 March, [facility] [place] [facility] [address] [id number] [place] [address]- 6459 March, [facility] [place] [facility] [address] [id number] [place] [address]- 2872 March, [facility] [place] [facility] [address] [id number] [place] [address]- 6[address] March, [facility] [address] [id number] [place] [address]- 5375 March, [facility] [address] [id number] [place] [address]- 3570 March, [facility] [address] [id number] [place] [address]- 5834 March, [facility] [place] [facility] [address] [id number] [place] [address] 2047 March, [facility] [address] [id number] [place] [address]- 6007 March, [facility] [address] [id number] [place] [address]- 0626 March, [facility] [address] [id number] [place] [address] 7133 March, [facility] [address] [id number] [place] [address] 5192 March, [facility] [address] [id number] [place] [address]- 4535 March, [facility] [address] [id number] [place] [address]- 6541 March, [facility] [address] [id number] [place] [address]- 8527 March, [facility] [place] [facility] [address] [id number] [place] [address]- 4183 March, [facility] [place] [facility] [address] [id number] [place] [address]- 3383 March, [facility] [place] [facility] [address] [id number] [place] [address]- 3977 March, [facility] [place] [facility] [address] [id number] [place] [address] March, [facility] [place] [facility] [address] [id number] [place] [address]- 2797 March, [facility] [place] [facility] [address] [id number] [place] [address]- 9269 Feb, [facility] [place] [facility] [address] [id number] [place] [address]- 1496 Feb, [facility] [place] [facility] [address] [id number] [place] [address]- 0429 Feb, [facility] [place] [facility] [address] [id number] [place] [address]- 8272 Feb, [facility] [place] [facility] [address] [id number] [place] [address]- 5402 Feb, [facility] [place] [facility] [address] [id number] [place] [address]- 9008 Feb, [facility] [place] [facility] [address] [id number] [place] [address]- 0768 Feb, [facility] [place] [facility] [address] [id number] [place] [address]- 4680 Feb, [facility] [place] [facility] [address] [id number] [place] [address]- 7936 Jan, [facility] [place] [facility] [address] [id number] [place] [address]- 3992 Jan, [facility] [place] [facility] [address] [id number] [place] [address]- 1001 24 Jan, 2014 [facility] [place] [facility] [address] [id number] [place] [address]- 7984 24 Jan, 2014 [facility] [place] [facility] [address] [id number] [place] [address]- 8183 13 Jan, 2014 [facility] [place] [facility] [address] [id number] [place] [address] 13 Jan, 2014 [facility] [place] [facility] [address] [id number] [place] [address]- 0083 Jan, [facility] [place] [facility] [address] [id number] [place] [address]- 9045 Jan, [facility] [place] [facility] [address] [id number] [place] [address]- 9235 Jan, [facility] [place] [facility] [address] [facility] [id number] [place] [address]- 4551 Jan, [facility] [place] [facility] [address] [id number] [place] [address]- 8265 Dec, [facility] [place] [facility] [address] [id number] [place] [address]- 8491 Dec, [facility] [place] [facility] [address] [facility] [id number] [place] [address]- 4434 Dec, [facility] [place] [facility] [address] [facility] [id number] [place] [address]- 4814 Dec, [facility] [place] [facility] [address] [id number] [place] [address]- 9854 Dec, [facility] [place] [facility] [address] [facility] [id number] [place] [address]- 0600 Dec, [facility] [place] [facility] [address] [facility] [id number] [place] [address]- 4244 Dec, [facility] [place] [facility] [address] [id number] [place] [address]- 0897 Dec, [facility] [place] [facility] [address] [facility] [id number], [place] [address]- 8856 Nov, [facility] [place] [facility] [address] [id number] [place] [address]- 2337 Nov, [facility] [place] [facility] [address] [facility] [id number] [place] [address]- 0792 Nov, [facility] [place] [facility] [address] [facility] [id number] [place] [address]- 1386 Nov, [facility] [place] [facility] [address] [id number] [place] [address]- 5838 Nov, [facility] [place] [facility] [address] [id number] [place] [address]- 5977 Nov, [facility] [place] [facility] [address] [id number] [place] [address]- 7960 Nov, [facility] [place] [facility] [address] [id number] [place] [address]- 8462 Nov, [facility] [place] [facility] [address] [id number] [place] [address]- 2338 Nov, [facility] [place] [facility] [address] [id number] [place] [address]- 1670 Nov, [facility] [place] [facility] [address] [id number] [place] [address]- 9833 Nov, [facility] [place] [facility] [address] [id number] [place] [address]- 9117 Nov, [facility] [place] [facility] [address] [id number] [place] [address]- 8044 Nov, [facility] [place] [facility] [address] [id number] [place] [address]- 3914 Oct, [facility] [place] [facility] [address] [id number] [place] [address]- 0684 Oct, [facility] [place] [facility] [address] [id number] [place] [address]- 5794 Oct, [facility] [place] [facility] [address] [id number] [place] [address]- 9002 Oct, [facility] [place] [facility] [address] [id number] [place] [address]- 0482 Oct, [facility] [place] [facility] [address] [id number] [place] Oct, [facility] [place] [facility] [address] [id number] [place] [address]- 2300 18 Oct, 2013 [facility] [address] [id number] [place] [address]- 4619 18 Oct, 2013 [facility] [place] [facility] [address] [id number] [place] [address]- 1744 17 Oct, 2013 [facility] [place] [facility] [address] [facility] [id number] [place] [address]- 4481 17 Oct, 2013 [facility] [place] [facility] [address] [id number] [place] [address]- 4132 Oct, [facility] [place] [facility] [address] [id number] [place] [address]- 5282 Oct, [facility] [place] [facility] [address] [id number] [place] [address]- 5414 Oct, [facility] [place] [facility] [address] [facility] [id number] [place] [address]- 8636 Oct, [facility] [place] [facility] [address] [id number], [place] [address]- 8540 14 Sep, 2013 [facility] [place] [facility] [address] [id number], [place] [address]- 4395 14 Sep, 2013 [facility] [place] [facility] [address] [id number], [place] [address]- 6102 05 Sep, 2013 [facility] [place] [facility] [address] [id number], [place] [address]- 4386 05 Sep, 2013 [facility] [place] [facility] [address] [id number], [place] [address]- 0975 Sep, [facility] [place] [facility] [address] [id number], [place] [address]- 6723 Sep, [facility] [place] [facility] [address] [id number], [place] [address]- 2960 Sep, [facility] [place] [facility] [address] [facility] [id number], [place] [address]- 1864 Sep, [facility] [place] [facility] [address] [id number] [place] [address]- 3274 Sep, [facility] [place] [facility] [address] [id number] [place] [address]- 3515 Sep, [facility] [place] [facility] [address] [id number] [place] [address]- 2175 Aug, [facility] [place] [facility] [address] [id number] [place] [address]- 7874 Aug, [facility] [place] [facility] [address] [id number] [place] [address]- 9224 Aug, [facility] [place] [facility] [address] [id number] [place] [address]- 7459 Aug, [facility] [place] [facility] [address] [id number] [place] [address]- 3243 Aug, [facility] [place] [facility] [address] [id number] [place] [address]- 7431 Aug, [facility] [place] [facility] [address] [id number] [place] [address]- 7783 Aug, [facility] [place] [facility] [address] [id number] [place] [address]- 2656 Aug, [facility] [place] [facility] [address] [id number] [place] [address]- 5866 Aug, [facility] [place] [facility] [address] [id number] [place] [address]- 8261 Aug, [facility] [place] [facility] [address] [id number], [place] [address]- 5384 Aug, [facility] [place] [facility] [address] [id number] [place] [address]- 0244 Aug, [facility] [place] [facility] [address] [id number] [place] [address]- 1229 Aug, [facility] [place] [facility] [address] [id number] [place] [address]- 2946 Aug, [facility] [place] [facility] [address] [id number] [place] [address]- 0256 17 Aug, 2013 [facility] [place] [facility] [address] [id number] [place] [address]- 6944 14 Aug, 2013 [facility] [place] [facility] [address] [id number] [place] [address]- 5016 14 Aug, 2013 [facility] [place] [facility] [address] [id number] [place] [address]- 4820 Aug, [facility] [place] [facility] [address] [id number] [place] [address]- 5747 20 Jul, 2013 [facility] [place] [facility] [address] [id number] [place] [address]- 4061 19 Jul, 2013 [facility] [address] [id number] [place] [address]- 4616 18 Jul, 2013 [facility] [place] [facility] [address] [id number] [place] [address]- 5331 11 Jul, 2013 [facility] [place] [facility] [address] [id number] [place] [address]- 1789 Jul, [facility] [place] [facility] [address] [id number] [place] [address]- 4554 28 Jun, 2013 [facility] [place] [facility] [address] [id number] [place] [address]- 3519 Jun, [facility] [place] [facility] [address] [id number] [place] [address]- 1755 Jun, [facility] [place] [facility] [address] [id number] [place] [address]- 5716 15 Jun, 2013 [facility] [place] [facility] [address] [id number] [place] [address]- 5744 14 Jun, 2013 [facility] [place] [facility] [address] [id number] [place] [address]- 5882 Jun, [facility] [place] [facility] [address] [id number] [place] [address]- 2207 Jun, [facility] [place] [facility] [address] [id number] [place] [address]- 9362 Jun, [facility] [place] [facility] [address] [id number] [place] [address]70 Jun, [facility] [place] [facility] [address] [id number] [place] [address]- 9469 Jun, [facility] [place] [facility] [address] [id number] [place] [address]- 9496 May, [facility] [place] [facility] [address] [id number] [place] [address]- 2519 May, [facility] [place] [facility] [address] [id number] [place] [address]- 1869 May, [facility] [place] [facility] [address] [id number] [place] [address]- 3580 May, [facility] [place] [facility] [address] [id number] [place] [address]- 4433 May, [facility] [place] [facility] [address] [id number] [place] [address]- 7615 May, [facility] [place] [facility] [address] [id number] [place] [address]- 3104 May, [facility] [place] [facility] [address] [id number] [place] [address]- 7313 May, [facility] [place] [facility] [address] [id number] [place] [address]- 4026 May, [facility] [place] [facility] [address] [id number] [place] [address]- 1064 Apr, [facility] [place] [facility] [address] [id number] [place] [address]- 1440 Apr, [facility] [place] [facility] [address] [id number] [place] [address]- 0892 Apr, [facility] [place] [facility] [address] [id number] [place] [address]- 0459 Apr, [facility] [address] [id number] [place] [address]- 0909 Apr, [facility] [address] [id number] [place] [address]- 6624 Apr, [facility] [address] [id number] [place] [address]- 9375 Apr, [facility] [address] [id number] [place] [address]- 9600 March, [facility] [address] [id number] [place] [address]- 6467 Feb, [facility] [address] [id number] [place] [address]- 0468 Feb, [facility] [address] [id number] [place] [address]- 6823 Feb, [facility] [address] [id number] [place] [address]- 5813 Jan, [facility] [address] [id number] [place] [address]- 7475 Jan, [facility] [address] [id number] [place] [address]- 6572 Jan, [facility] [address] [id number] [place] [address]- 1363 14 Jan, 2013 [facility] [address] [id number] [place] [address]- 2973 12 Jan, 2013 [facility] [address] [id number] [place] [address]- 1696 08 Jan, 2013 [facility] [address] [id number] [place] [address]- 8436 07 Jan, 2013 [facility] [address] [id number] [place] [address]- 1983 Jan, [facility] [address] [id number] [place] [address]- 5920 28 Dec, 2012 [facility] [place] [facility] [address] [id number] [place] [address]- 8646 25 Dec, 2012 [facility] [place] [facility] [address] [id number] [place] [address]- 0686 13 Dec, 2012 [facility] [place] [facility] [address] [id number] [place] [address]- 7882 11 Dec, 2012 [facility] [place] [facility] [address] [id number] [place] [address]- 4818 07 Dec, 2012 [facility] [place] [facility] [address] [id number] [place] [address]- 7644 06 Dec, 2012 [facility] [place] [facility] [address] [id number] [place] [address]- 4899 05 Dec, 2012 [facility] [place] [facility] [address] [id number] [place] [address]- 0695 Nov, [facility] [place] [facility] [address] [id number] [place] [address]- 0677 Nov, [facility] [place] [facility] [address] [id number] [place] [address]- 6651 Nov, [facility] [place] [facility] [address] [id number] [place] [address]- 9399 Nov, [facility] [place] [facility] [address] [id number] [place] [address] 10 Nov, 2012 [facility] [place] [facility] [address] [id number] [place] [address] Nov, [facility] [place] [facility] [address] [id number] [place] [address] Nov, [facility] [place] [facility] [address] [id number] [place] [address] Oct, [facility] [place] [facility] [address] [id number] [place] [address] Oct, [facility] [address] [id number] [place] [address] Oct, [facility] [place] [facility] [address] [id number] [place] [address]296 Oct, [facility] [address] [id number] [place] [address] Oct, [facility] [address] [id number] [place] [address] 8657 Oct, [facility] [address] [id number] [place] [address] Oct, [facility] [address] [id number] [place] [address] Oct, [facility] [address] [id number] [place] [address] Oct, [facility] [address] [id number] [place] [address] 2966 Oct, [facility] [address] [id number] [place] [address]76 Oct, [facility] [address] [id number] [place] [address] Oct, [facility] [place] [facility] [address] [id number] [place] [address] Sep, [facility] [address] [id number] [place] [address] Sep, [facility] [place] [facility] [address] [id number] [place] [address] 6144 Sep, [facility] [place] [facility] [address] [id number] [place] [address] 7836 Sep, [facility] [place] [facility] [address] [id number] [place] [address]- 3866 Sep, [facility] [place] [facility] [address] [id number] [place] [address]- 8642 Sep, [facility] [place] [facility] [address] [id number] [place] [address]- 8435 Sep, [facility] [place] [facility] [address] [id number] [place] [address] Sep, [facility] [place] [facility] [address] [id number] [place] [address] 1601 Sep, [facility] [place] [facility] [address] [id number] [place] [address] Sep, [facility] [place] [facility] [address] [id number] [place] [address]- 1346 Sep, [facility] [place] [facility] [address] [id number] [place] [address] 8640 Aug, [facility] [place] [facility] [address] [id number], [place] [address]- [address] Aug, [facility] [place] [facility] [address] [id number], [place] [address] Aug, [facility] [place] [facility] [address] [facility] [id number], [place] [address]- [address] Aug, [facility] [place] [facility] [address] [facility] [id number], [place] [address]- 1431 Aug, [facility] [place] [facility] [address] [id number], [place] [address] 0[address] Aug, [facility] [place] [facility] [address] [id number], [place] [address] 2038 Aug, [facility] [place] [facility] [address] [id number], [place] [address] Aug, [facility] [place] [facility] [address] [facility] [id number][place] [address] Aug, [facility] [place] [facility] [address] [id number], [place] [address]- [address] Aug, [facility] [place] [facility] [address] [id number] [place] [address] 2301 Jul, [facility] [place] [facility] [address] [id number] [place] [address]- 69[address] Jul, [facility] [place] [facility] [address] [id number] [place] [address]- 2906 Jul, [facility] [place] [facility] [address] [id number] [place] [address]- 6737 Jul, [facility] [place] [facility] [address] [id number] [place] [address]- 45[address] Jun, [facility] [place] [facility] [address] [id number] [place] [address]- 2173 Jun, [facility] [place] [facility] [address] [id number] [place] [address]- [address]30 Jun, [facility] [place] [facility] [address] [id number] [place] [address]- 8403 Jun, [facility] [place] [facility] [address] [id number] [place] [address]- 7375 Jun, [facility] [place] [facility] [address] [id number] [place] [address]- 7923 Jun, [facility] [place] [facility] [address] [id number] [place] [address]- 1307 Jun, [facility] [place] [facility] [address] [id number] [place] [address]- 5128 May, [facility] [place] [facility] [address] [id number] [place] [address]- 0914 May, [facility] [place] [facility] [address] [id number] [place] [address]- 6698 May, [facility] [place] [facility] [address] [id number] [place] [address]- 3074 May, [facility] [place] [facility] [address] [id number] [place] [address]- 3074 May, [facility] [place] [facility] [address] [id number] [place] [address]- 4039 Apr, [facility] [place] [facility] [address] [id number] [place] [address]- 3616 Apr, [facility] [place] [facility] [address] [id number] [place] [address]- 9876 Apr, [facility] [place] [facility] [address] [id number] [place] [address]- 2793 Apr, [facility] [place] [facility] [address] [id number] [place] [address]- 0634 Apr, [facility] [place] [facility] [address] [id number] [place] [address]- 5765 March, [facility] [place] [facility] [address] [id number] [place] [address]- 6402 March, [facility] [place] [facility] [address] [id number] [place] [address]- [address]64 March, [facility] [place] [facility] [address] [id number] [place] [address]- 53[address] March, [facility] [place] [facility] [address] [id number] [place] [address]- 8031 March, [facility] [place] [facility] [address] [id number] [place] [address]- 8776 March, [facility] [place] [facility] [address] [id number] [place] [address]- 7961 March, [facility] [place] [facility] [address] [id number] [place] [address]- 5256 March, [facility] [place] [facility] [address] [id number] [place] [address]- 4596 March, [facility] [place] [facility] [address] [id number] [place] [address] March, [facility] [address] [id number] [place] [address]- [address] 30 Feb, 2012 [facility] [place] [facility] [address] [id number] [place] [address]- 5204 Feb, [facility] [place] [facility] [address] [id number] [place] [address]- 2396 Feb, [facility] [place] [facility] [address] [id number] [place] [address]- 1367 Feb, [facility] [place] [facility] [address] [id number] [place] [address]- 4863 Feb, [facility] [place] [facility] [address] [id number] [place] [address] Feb, [facility] [place] [facility] [address] [id number] [place] [address] Feb, [facility] [place] [facility] [address] [id number] [place] [address] Feb, [facility] [place] [facility] [address] [id number] [place] [address] Feb, [facility] [place] [facility] [address] [id number] [place] [address] Jan, [facility] [place] [facility] [address] [id number] [place] [address] Jan, [facility] [place] [facility] [address] [id number] [address] Jan, [facility] [place] [facility] [address] [id number] [place] [address] Jan, [facility] [place] [facility] [address] [id number] [place] [address] Dec, [facility] [place] [facility] [address] [id number] [place] [address] Dec, [facility] [place] [facility] [id number] [address] Nov, [facility] [id number] [address] Nov, [facility] [id number], [place] [address] Nov, [facility] [id number], [place] [address] Nov, [facility] [address] [id number] [address] Nov, [facility] [id number] [place] [address] Oct, [facility] [id number], [place] [address] Oct, [facility] [id number] [place] [address] Oct, [facility] [address], [place] [address] Oct, [facility] [address], [place] [address] Oct, [facility] [address], [place] [address] Oct, [facility] [address], [place] [address] Oct, [facility] [id number], [place] [address] Oct, [facility] [id number], [place] [address] Sep, IMMUNIZATIONS No Known Immunizations SOCIAL HISTORY Never Assessed REASON FOR VISIT Routine visit PLAN OF CARE Activity Details Follow Up prn Reason: VITAL SIGNS MEDICATIONS Medication Instructions Dosage Frequency Start Date End Date Duration Status Furosemide 20 mg Orally every other day 1 tablet Active Ondansetron HCl 4 MG Orally every 6 hours as needed NAUSEA/VOMITING 1 tablets Active Tramadol HCl 50 mg Orally 3 times a day 1 tablet as needed 8h Dec, Active BuPROPion HCl ER (XL) 300 MG Orally Once a day at HS 1 tablet in the morning Active Potassium Chloride Radha ER 20 meq Orally q48H TAKES WITH FUROSEMIDE 2 tablet with food Active Oxybutynin Chloride ER 10 MG 1 TABLET BY MOUTH EVERY DAY FOR UNINHIBITED NEUROPATHC BLADDER, NEC Active Albuterol Sulfate HFA 108 (90 Base) MCG/ACT Inhalation every 6 hrs 2 puffs as needed 6h Nov, Active Tamsulosin HCl 0.4 MG Orally Once a day 1 capsule 24h Active MetFORMIN HCl ER 500 MG Orally Once a day 1 tablet with evening meal 24h Active Metoprolol Tartrate 50 MG Orally Twice a day 1 tablet with food 12h Active Ativan 0.5 MG Orally at HS and BID PRN 1 tablet Dec, Active Aspirin 81 MG Orally Once a day 1 tablet 24h Active MiraLax 17 gm/dose Orally Once a day 17 grams mixed in 8 oz of water or juice 24h Apr, Active Gabapentin 400 MG Orally Three times a day 1 capsule 8h Active Atorvastatin Calcium 40 MG Orally Once a day 1 tablet 24h Oct, 30 day(s) Active Escitalopram Oxalate 20 MG Orally Once a day 1 tablet 24h Nov, 30 day(s) Active Estradiol 0.1 MG/GM Vaginal 3 times per week 1 application to skin Active RESULTS No Results PROCEDURES Procedure Date Ordered Result Body Site Minor complication (15 mins) March 04, 2018 INSTRUCTIONS MEDICATIONS ADMINISTERED No Known Medications MEDICAL (GENERAL) HISTORY Type Description Date 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
--- OUTSIDE RECORDS SUMMARY | 2018-09-04 11:46 | XMS REPORT ---
Author Author SHAHNAZ MARQUEZ [facility] Address [address] [place] [address] Care Team Providers Care Scientific Database Curator Name Role Phone SHAHNAZ MARQUEZ Unavailable PROBLEMS Type Condition ICD9-CM Code ADB28-HK Code Onset Dates Condition Status SNOMED Code Problem Low back pain M54.5 Active 771807122 Problem Ventral hernia without obstruction or gangrene K43.9 Active 200908053 Problem Type 2 diabetes mellitus without complication, without long-term current use of insulin E11.9 Active 107732181 Problem Hypertension I10 Active 47102995 Problem Coronary artery disease I25.10 Active 93547112 Problem Hyperlipidemia E78.5 Active 38778198 Problem Other chronic pain G89.29 Active 13262481 Problem Paroxysmal atrial fibrillation I48.0 Active 418482513 Problem Insomnia G47.00 Active 425880331 Problem Pharyngeal dysphagia R13.13 Active 95915160162603 Problem Reactive depression F32.9 Active 57096883 Problem Peripheral vascular disease I73.9 Active 200100612 Problem Anxiety F41.9 Active 01361189 ALLERGIES No Information ENCOUNTERS Encounter Location Date Diagnosis Via [employer] [address] [place] [id number] May, Anxiety F41.9 ; Type 2 diabetes mellitus without complication, without long-term current use of insulin E11.9 ; Hypertension I10 ; Low back pain M54.5 ; Paroxysmal atrial fibrillation I48.0 and 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 [facility] [address] [facility] [id number], [place] [address] May, Other chronic pain G89.29 Via [facility] [address] [place] [id number] May, Low back pain M54.5 [facility] [address] [id number], [place] [address] May, [facility] [address] [facility] [id number], [place] [address] Apr, Other chronic pain G89.29 [facility] [address] [id number], [place] [address] Apr, [facility] [address] [facility] [id number], [place] [address] Apr, Via [facility] [address] [place] [id number] Apr, Closed compression fracture of L3 lumbar vertebra with routine healing, subsequent encounter S32.030D [facility] [address] [place] [id number] Apr, Low back pain M54.5 [facility] [address] [place] [id number] Apr, Coccydynia M53.3 [facility] [address] [facility] [id number] [place] [address]56[address]149 March, [facility] [address] [facility] [id number] [place] [address] 30695- 5706 March, Other chronic pain G89.29 [facility] [id number] [place] [address]44- 5213 March, [facility] [address] [facility] [id number], [place] [address] March, [facility] [address] [facility] [id number], [place] [address] 12[address] Feb, [facility] [address] [facility] [id number], [place] [address] Feb, Other chronic pain G89.29 Via [facility] [address] [place] [id number] Feb, Other chronic pain G89.29 and Anxiety F41.9 [facility] [address] [facility] [id number], [place] [address] Feb, [facility] [address] [id number] [address] Jan, [facility] [address] [id number], [place] [address] 4[address] Jan, [facility] [address]00565100[place], [place] [address] Jan, [place] [address] [id number], [place] [address] 52[address] Jan, [facility] [address] [id number], [place] [address] Dec, Via [employer] [address] [place] [id number] Dec, Peripheral vascular disease I73.9 ; 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 ; Other chronic pain G89.29 ; Anxiety F41.9 ; Reactive depression F32.9 ; Insomnia G47.00 and Type 2 diabetes mellitus without complication, without long-term current use of insulin E11.9 [facility] [address] [id number] [place] [address] Nov [facility] [place] [id number] [id number] Nov, Anxiety F41.9 [place] [address] [id number], [place] [address] Nov, [place] [id number][place] [address] Nov, Anxiety F41.9 [facility] [employer] [address] [facility] [place] [id number] Nov, Status post surgery Z98.890 ; Confused R41.0 ; Anxiety F41.9 and Other chronic pain G89.29 [facility] [place] [id number][place] [address] Nov, Other chronic pain G89.29 [facility] [address] [facility] [id number], [place] [address] Oct, [place] [id number][place] [address] Oct, Other chronic pain G89.29 [facility] [address]00565100[place], [place] [address] Oct, Anxiety F41.9 [facility] [place] [id number][place] [address] Sep, Other chronic pain G89.29 [facility] [id number] [place] [id number] Sep, Via [facility] [address] [place] [id number] Aug, Dysuria R30.0 and Anxiety F41.9 [facility] [address]00565100[place], [place] [address] 2546 Aug, [facility] [place] [id number] [place] [id number] Aug, Other chronic pain G89.29 [facility] [address]00565100[place], [place] [address] Jul, Other chronic pain G89.29 [facility] [place] [id number], [place] [address] Jun, [facility] [place] [id number], [place] [address] Jun, Other chronic pain G89.29 [facility] [address]00565100[place], [place] [address] Jun, [facility] [address] [id number], [place] [address]70 May, Other chronic pain G89.29 [facility] [address] [place] [address] 2546 Apr, Other chronic pain G89.29 [facility] [address] [place] [id number] Apr, Reactive depression F32.9 and Pharyngeal dysphagia R13.13 [facility] [address] [facility] [id number], [place] [address] Apr, Urinary tract infection without hematuria, site unspecified N39.0 [facility] [address] [facility] [id number], [place] [address] March, Other chronic pain G89.29 [facility] [address] [facility] [id number], [place] [address] Feb, Other chronic pain G89.29 [facility] [address] [facility] [id number], [place] [address] 0[address] Feb, [facility] [place] [id number] [place] [id number] Feb, Via [facility] [address] [place] [id number] Feb, Dysuria R30.0 and Ventral hernia without obstruction or gangrene K43.9 [facility] [address]00565100[place], [place] [address] 0868 Jan, Other chronic pain G89.29 [facility] [place] [id number], [place] [address] Dec, Other chronic pain G89.29 [facility] [address] [id number], [place] [address] 0681 Nov, Other chronic pain G89.29 [facility] [address] [place] [id number] Nov, Lymphadenitis I88.9 [facility] [address] [facility] [id number], [place] [address] Nov, Other chronic pain G89.29 [facility] [address] [facility] [id number][place] [address] Nov, [facility] [place] [address] [id number] [id number] Nov, Other chronic pain G89.29 [facility] [address] [place] [address] Oct, Low back pain M54.5 ; Hypertension I10 and Type 2 diabetes mellitus without complication, without long-term current use of insulin E11.9 [facility] [id number] [place] [address] 82088- 5298 Oct, [facility] [id number] [place] [address] 30806- 1245 Oct, [facility] [id number] [place] [address] 16092- 1236 Oct, [facility] [id number] [place] [address] 16854- 8421 Oct, [facility] [id number] [place] [address] 12069- 4328 Sep, [facility] [id number] [place] [address] 27333- 6082 Sep, [facility] [id number] [place] [address] 52433- 4735 Aug, Other chronic pain G89.29 [facility] [id number] [place] [address] 51766- 6156 Jul, [facility] [id number] [place] [address] 01142- 9465 Jul, [facility] [address] [place] [address] 69335- 9425 Jul, [facility] [id number] [place] [address] 50786- 8105 Jun, [facility] [address] [place] [address] 51948- 8782 Jun, Via [facility] [address] [place] [id number] Jun, Low back pain M54.5 ; Other chronic pain G89.29 and Coronary artery disease I25.10 [facility] [address] [place] [address] 15133- 1075 Jun, [facility] [address]65[address], [place] [address]- 5892 May, [facility] [address]00565100[place], [place] [address]- 3459 May, [facility] [address]65100[place], [place] [address]- 1624 May, Other chronic pain G89.29 [facility] [address] [id number], [place] [address]- 4989 May, [facility] [id number] [place] [address] 73725- 2755 Apr, [facility] [id number] [place] [address] 86000- 6636 Apr, Acute cystitis without hematuria N30.00 [facility] [id number] [place] [address] 22816- 6947 16 Apr, 2016 Acute cystitis without hematuria N30.00 ; Coronary artery disease I25.10 ; Low back pain M54.5 and Other chronic pain G89.29 [facility] [address], [place] [address]- 4657 Apr, Other chronic pain G89.29 [facility] [address], [place] [address]- 9564 March, Other chronic pain G89.29 [facility] [address], [place] [address]- 4789 Feb, [facility] [address], [place] [address]- 0887 Feb, Arthritis M19.90 [facility] [address]65[address], [place] [address]- 1752 Feb, [facility] [address], [place] [address]- 3146 Jan, [facility] [address]65100[place], [place] [address]- 7745 Jan, [facility] [id number] [place] [address] 49905- 2477 Jan, Other chronic pain G89.29 [facility] [address] [place] [address] 14618- 9733 Jan, Hypertension I10 ; Coronary artery disease I25.10 and Insomnia G47.00 [facility] [id number] [place] [address] 57188- 1799 Jan, [facility] [id number] [place] [address] 11893- 2762 Dec, Right hip pain M25.551 [facility] [id number] [place] [address] 59856- 6623 Dec, [facility] [id number] [place] [address] 60908- 8999 Dec, [facility] [address] [place] [address] 18636- 2511 Dec, [facility] [id number] [place] [address] 47972- 2136 Dec, Other chronic pain G89.29 [facility] [address], [place] [address]- 5126 Dec, [facility] [address], [place] [address]- 9480 Nov, [facility] [address], [place] [address] 2545 Nov, Other chronic pain G89.29 [facility] [address], [place] [address] 2544 Nov, Right hip pain M25.551 and Coronary artery disease I25.10 [facility] [address] [place] [address] 43118- 5169 Nov, Other chronic pain G89.29 [facility] [address] [id number], [place] [address]- 0206 Oct, [facility] [id number] [place] [address] 36298- 5470 Oct, [facility] [id number] [place] [address] 71674- 1762 Sep, [facility] [id number] [place] [address] 08761- 7025 Sep, [facility] [id number] [place] [address] 21547- 7382 Aug, [facility] [id number] [place] [address] 86436- 2244 Aug, Hypertension I10 ; Coronary artery disease I25.10 and Arthritis M19.90 [facility] [id number] [place] [address] 27327- 5492 Jun, [facility] [id number] [place] [address] 77305- 6271 Jun, Essential hypertension, benign 401.1 ; Other chronic pain 338.29 and Chronic airway obstruction, not elsewhere classified 496 [facility] [address], [place] [address]- 7440 Jun, [facility] [id number] [place] [address] 30532- 7617 Jun, [facility] [address], [place] [address]- 1909 Jun, [facility] [id number] [place] [address] 94086- 4464 May, [facility] [address] [id number], [place] [address]- 0400 May, [facility] [id number] [place] [address] 98753- 7325 Apr, [facility] [address] [id number] [place] [address]- 1107 Apr, [facility] [address] [id number] [place] [address]- 7003 Apr, [facility] [address] [id number] [place] 3[address] March, [facility] [address] [id number] [place] [address]- 2075 March, [facility] [address] [id number] [place] [address] March, [facility] [address] [id number] [place] [address]- 0813 March, [facility] [address] [id number] [place] [address]74 March, Sialadenitis 527.2 [facility] [address] [id number] [place] [address]- 4931 Feb, [facility] [address] [id number] [place] [address]- 7152 Feb, [facility] [address] [id number] [place] [address]- 7209 Feb, [facility] [address] [id number] [place] [address]- 0461 Feb, [facility] [address] [id number] [place] [address]- 9929 Feb, [facility] [address] [id number] [place] 0697 Jan, [facility] [address] [id number] [place] [address]- 8503 Jan, [facility] [address] [id number] [place] [address]- 7421 Jan, [facility] [address] [id number] [place] [address]- 8876 Jan, [facility] [place] [facility] [address] [id number] [place] [address]- 3231 Jan, [facility] [place] [facility] [address] [id number] [place] [address]- 7626 Jan, [facility] [place] [facility] [address] [id number] [place] [address]- 2654 Dec, 2014 [facility] [place] [facility] [address] [id number] [place] [address]- 9946 Dec, 2014 [facility] [place] [facility] [address] [id number] [place] [address]- 5941 Dec, 2014 [facility] [place] [facility] [address] [facility] [id number] [place] [address]- 0271 Dec, 2014 [facility] [place] [facility] [address] [id number] [place] [address]- 3189 Dec, [facility] [place] [facility] [address] [id number] [place] [address]- 5202 Dec, [facility] [place] [facility] [address] [facility] [id number] [place] [address]- 4319 Nov, [facility] [place] [facility] [address] [id number] [place] [address]- 7763 Nov, [facility] [place] [facility] [address] [id number] [place] [address]- 2542 Nov, [facility] [place] [facility] [address] [id number] [place] [address]- 1015 Nov, [facility] [place] [facility] [address] [id number] [place] [address]- 2543 Nov, [facility] [place] [facility] [address] [id number] [place] [address]- 2541 Nov, [facility] [place] [facility] [address] [id number] [place] [address]- 2501 Nov, [facility] [place] [facility] [address] [id number] [place] [address]- 4110 Nov, [facility] [place] [facility] [address] [id number] [place] [address]- 0029 Nov, [facility] [place] [facility] [address] [facility] [id number] [place] [address]- 1210 Nov, [facility] [place] [facility] [address] [id number] [place] [address]- 4821 Nov, [facility] [place] [facility] [address] [id number] [place] [address]- 2471 Nov, [facility] [place] [facility] [address] [id number] [place] [address]- 4951 Nov, [facility] [place] [facility] [address] [id number] [place] [address]- 1128 Nov, [facility] [place] [facility] [address] [id number] [place] [address]- 3671 Oct, [facility] [place] [facility] [address] [id number] [place] [address]- 3321 Oct, [facility] [place] [facility] [address] [id number] [place] [address]- 0178 Oct, [facility] [place] [facility] [address] [id number], [place] [address]- 6668 18 Oct, 2014 [facility] [place] [facility] [address] [id number], [place] [address]- 7039 18 Oct, 2014 [facility] [place] [facility] [address] [id number] [place] [address]- 5466 17 Oct, 2014 [facility] [place] [facility] [address] [id number] [place] [address]- 2946 17 Oct, 2014 [facility] [place] [facility] [address] [id number] [place] [address]- 4325 10 Oct, 2014 [facility] [place] [facility] [address] [id number] [place] [address]- 7726 Oct, [facility] [place] [facility] [address] [id number] [place] [address]- 2307 Sep, [facility] [place] [facility] [address] [id number] [place] [address]- 2605 Sep, [facility] [place] [facility] [address] [id number] [place] [address]- 7865 Sep, [facility] [place] [facility] [address] [id number] [place] [address]- 5935 Sep, [facility] [place] [facility] [address] [id number] [place] [address]- 3664 Sep, [facility] [place] [facility] [address] [id number] [place] [address]- 6902 Sep, [facility] [place] [facility] [address] [id number] [place] [address]- 0223 Sep, [facility] [place] [facility] [address] [id number] [place] [address]- 9081 Sep, [facility] [place] [facility] [address] [id number] [place] [address]- 5410 Sep, [facility] [place] [facility] [address] [facility] [id number] [place] [address] Sep, [facility] [place] [facility] [address] [id number] [place] [address] Sep, [facility] [place] [facility] [address] [id number] [place] [address] Sep, [facility] [place] [facility] [address] [id number] [place] [address] Aug, [facility] [place] [facility] [address] [id number] [place] [address] Aug, [facility] [place] [facility] [address] [id number] [place] [address] Aug, [facility] [place] [facility] [address] [id number] [place] [address] 29 Aug, 2013 [facility] [place] [facility] [address] [id number] [place] [address] 28 Aug, 2014 [facility] [place] [facility] [address] [id number] [place] [address] 28 Aug, 2014 [facility] [place] [facility] [address] [id number] [place] [address] Aug, [facility] [place] [facility] [address] [id number] [place] [address] 17 Aug, 2013 [facility] [place] [facility] [address] [id number] [place] [address] 30 Jul, 2013 [facility] [place] [facility] [address] [id number] [place] [address] 30 Jul, 2013 [facility] [place] [facility] [address] [id number] [place] [address]- [address] 30 Sep, 2013 [facility] [place] [facility] [address] [id number] [place] [address] 30 Sep, 2013 [facility] [place] [facility] [address] [id number] [place] [address] 25 Jul, 2013 [facility] [place] [facility] [address] [id number] [place] [address] 25 Sep, 2013 [facility] [place] [facility] [address] [id number], [place] [address] 15 Sep, 2013 [facility] [place] [facility] [address] [id number] [place] [address]- [address] 15 Sep, 2013 [facility] [place] [facility] [address] [id number] [place] [address]- [address] 11 Jul, 2013 [facility] [place] [facility] [address] [id number] [place] [address] 11 Jul, 2013 [facility] [place] [facility] [address] [id number] [place] [address] Jun, [facility] [place] [facility] [address] [id number] [place] [address] Jun, [facility] [place] [facility] [address] [id number] [place] [address] Jun, [facility] [place] [facility] [address] [id number] [place] [address] Jun, [facility] [place] [facility] [address] [id number] [place] [address] Jun, [facility] [place] [facility] [address] [id number] [place] [address] Jun, [facility] [place] [facility] [address] [id number] [place] [address]- [address] Jun, [facility] [place] [facility] [address] [id number] [place] [address] Jun, [facility] [place] [facility] [address] [id number] [place] [address] Jun, [facility] [place] [facility] [address] [id number] [place] [address] Jun, [facility] [place] [facility] [address] [id number] [place] [address] Jun, [facility] [place] [facility] [address] [id number] [place] [address] Jun, [facility] [place] [facility] [address] [id number] [place] [address]- [address] Jun, [facility] [place] [facility] [address] [id number] [place] [address] Jun, [facility] [place] [facility] [address] [id number] [place] [address] Jun, [facility] [place] [facility] [address] [id number] [place] [address] Jun, [facility] [place] [facility] [address] [id number] [place] [address] Jun, [facility] [place] [facility] [address] [id number] [place] [address] Jun, [facility] [place] [facility] [address] [id number] [place] [address] Jun, [facility] [place] [facility] [address] [id number] [place] [address] Jun, [facility] [place] [facility] [address] [id number] [place] [address] Jun, [facility] [facility] [address] [id number] [place] [address] Jun, [facility] [place] [facility] [address] [id number] [place] [address] 0935 May, [facility] [place] [facility] [address] [id number] [place] [address] 4328 May, [facility] [facility] [address] [id number] [place] [address] 6[address] May, [facility] [facility] [address] [id number] [place] [address] 9934 May, [facility] [address] [id number] [place] [address] 6495 May, [facility] [facility] [address] [id number] [place] [address] 9038 May, [facility] [facility] [address] [id number] [place] [address] 2983 May, [facility] [place] [facility] [address] [id number] [place] [address]- 9594 May, [facility] [facility] [address] [id number] [place] [address]- 3561 May, [facility] [place] [facility] [address] [id number] [place] [address]- 6075 May, [facility] [place] [facility] [address] [id number] [place] [address]- 4571 May, [facility] [place] [facility] [address] [id number] [place] [address]- 1558 May, [facility] [place] [facility] [address] [id number] [place] [address]- 6772 May, [facility] [place] [facility] [address] [id number] [place] [address]- 0735 Apr, [facility] [place] [facility] [address] [id number] [place] [address]- 2352 Apr, [facility] [place] [facility] [address] [id number] [place] [address]- 1267 Apr, [facility] [place] [facility] [address] [id number] [place] [address]- 1454 Apr, [facility] [place] [facility] [address] [id number] [place] [address]- 7492 Apr, [facility] [place] [facility] [address] [id number] [place] [address]- 2800 Apr, [facility] [place] [facility] [address] [id number] [place] [address]- 6748 Apr, [facility] [place] [facility] [address] [id number] [place] [address]- 6050 Apr, [facility] [place] [facility] [address] [id number] [place] [address]- 9387 Apr, [facility] [place] [facility] [address] [id number] [place] [address]- 7078 March, [facility] [place] [facility] [address] [id number] [place] [address]- 6414 March, [facility] [place] [facility] [address] [id number] [place] [address]- 3753 March, [facility] [place] [facility] [address] [id number] [place] [address] 1970 March, [facility] [address] [id number] [place] [address]- 1769 March, [facility] [address] [id number] [place] [address]- 4137 March, [facility] [address] [id number] [place] [address]- 9076 March, [facility] [address] [id number] [place] [address]- 1506 March, [facility] [address] [id number] [place] [address]- 8263 March, [facility] [address] [id number] [place] [address]- 0645 March, [facility] [address] [id number] [place] [address]- 3509 March, [facility] [address] [id number] [place] [address]- 5076 March, [facility] [address] [id number] [place] [address]- 4472 March, [facility] [address] [id number] [place] [address]- 1748 March, [facility] [address] [id number] [place] [address]- 6425 March, [facility] [address] [id number] [place] [address]- 9447 March, [facility] [address] [id number] [place] [address]- 4322 March, [facility] [address] [id number] [place] [address]- 7926 March, [facility] [address] [id number] [place] March, [facility] [address] [id number] [place] [address]- 0121 March, [facility] [address] [id number] [place] [address]- 0377 Feb, [facility] [address] [id number] [place] [address]- 6056 Feb, [facility] [address] [id number] [place] [address]- 4826 Feb, [facility] [address] [id number] [place] [address]- 5542 Feb, [facility] [address] [id number] [place] [address]- 1654 Feb, [facility] [address] [id number] [place] [address]- 1532 Feb, [facility] [address] [id number] [place] [address]- 8762 Feb, [facility] [address] [id number] [place] [address]- 9597 Feb, [facility] [address] [id number] [place] [address]- 7977 Jan, [facility] [address] [id number] [place] [address]- 6107 Jan, [facility] [address] [id number] [place] [address]- 1084 24 Jan, 2014 [facility] [address] [id number] [place] [address]- 2876 24 Jan, 2014 [facility] [address] [id number] [place] [address]- 3985 13 Jan, 2014 [facility] [facility] [address] [id number] [place] 13 Jan, 2014 [facility] [address] [id number] [place] [address]- 6166 Jan, [facility] [address] [id number] [place] [address]- 6416 Jan, [facility] [address] [id number] [place] [address]- 3138 Jan, [facility] [address] [facility] [id number] [place] [address]- 8392 Jan, [facility] [address] [id number] [place] [address]- 7975 Dec, [facility] [address] [id number] [place] [address]- 5240 Dec, [facility] [address] [facility] [id number] [place] [address]- 2400 Dec, [facility] [address] [facility] [id number] [place] [address]- 2033 Dec, [facility] [address] [id number] [place] [address]- 7024 Dec, [facility] [address] [facility] [id number] [place] [address]- 4419 Dec, [facility] [address] [facility] [id number] [place] [address]- 8441 Dec, [facility] [address] [id number] [place] [address]- 8667 Dec, [facility] [address] [facility] [id number], [place] [address] 1996 Nov, [facility] [address] [id number] [place] [address]- 2162 Nov, [facility] [address] [facility] [id number] [place] [address]- 6529 Nov, [facility] [address] [facility] [id number] [place] [address]- 7117 Nov, [facility] [address] [id number] [place] [address]- 5694 Nov, [facility] [address] [id number] [place] [address]- 4636 Nov, [facility] [address] [id number] [place] [address]- 0232 Nov, [facility] [address] [id number] [place] [address]- 6670 Nov, [facility] [address] [id number] [place] [address]- 2259 Nov, [facility] [address] [id number] [place] [address]- 3950 Nov, [facility] [address] [id number] [place] [address]- 5911 Nov, [facility] [address] [id number] [place] [address]- 3518 Nov, [facility] [address] [id number] [place] [address]- 0632 Nov, [facility] [address] [id number] [place] [address]- 4839 Oct, [facility] [address] [id number] [place] [address]- 9469 Oct, [facility] [address] [id number] [place] [address]- 0391 Oct, [facility] [address] [id number] [place] [address]- 3868 Oct, [facility] [address] [id number] [place] [address]- 8075 Oct, [facility] [address] [id number] [place] Oct, [facility] [address] [id number] [place] [address]- 5543 18 Oct, 2013 [facility] [address] [id number] [place] [address]- 4369 18 Oct, 2013 [facility] [address] [id number] [place] [address]- 6762 17 Oct, 2013 [facility] [address] [facility] [id number] [place] [address]- 0413 17 Oct, 2013 [facility] [address] [id number] [place] [address]- 4020 Oct, [facility] [address] [id number] [place] [address]- 9867 Oct, [facility] [address] [id number] [place] [address]- 9028 Oct, [facility] [address] [facility] [id number] [place] [address]- 9269 Oct, [facility] [address] [id number], [place] [address]- 1483 14 Sep, 2013 [facility] [address] [id number], [place] [address]- 8608 14 Sep, 2013 [facility] [address] [id number], [place] [address]- 3264 05 Sep, 2013 [facility] [address] [id number], [place] [address]- 8822 05 Sep, 2013 [facility] [address] [id number], [place] [address]- 9029 Sep, [facility] [address] [id number], [place] [address]- 6170 Sep, [facility] [address] [id number], [place] [address]- 2274 Sep, [facility] [address] [facility] [id number], [place] [address]- 8492 Sep, [facility] [address] [id number] [place] [address]- 5263 Sep, [facility] [address] [id number] [place] [address]- 3435 Sep, [facility] [address] [id number] [place] [address]- 6879 Aug, [facility] [address] [id number] [place] [address]- 7910 Aug, [facility] [address] [id number] [place] [address]- 6699 Aug, [facility] [address] [id number] [place] [address]- 5010 Aug, [facility] [address] [id number] [place] [address]- 0433 Aug, [facility] [address] [id number] [place] [address]- 8108 Aug, [facility] [address] [id number] [place] [address]- 6382 Aug, [facility] [address] [id number] [place] [address]- 9737 Aug, [facility] [address] [id number] [place] [address]- 3411 Aug, [facility] [address] [id number] [place] [address]- 2056 Aug, [facility] [address] [id number], [place] [address]- 0345 Aug, [facility] [address] [id number] [place] [address]- 4228 Aug, [facility] [address] [id number] [place] [address]- 0839 Aug, [facility] [facility] [address] [id number] [place] [address]- 0389 Aug, [facility] [address] [id number] [place] [address]- 6065 17 Aug, 2013 [facility] [address] [id number] [place] [address]- 8529 14 Aug, 2013 [facility] [address] [id number] [place] [address]- 2888 14 Aug, 2013 [facility] [address] [id number] [place] [address]- 5305 Aug, [facility] [place] [facility] [address] [id number] [place] [address]- 2476 20 Jul, 2013 [facility] [address] [id number] [place] [address]- 6690 19 Jul, 2013 [facility] [address] [id number] [place] [address]- 0641 18 Jul, 2013 [facility] [address] [id number] [place] [address]- 4606 11 Jul, 2013 [facility] [address] [id number] [place] [address]- 4488 Jul, [facility] [address] [id number] [place] [address]- 7284 28 Jun, 2013 [facility] [address] [id number] [place] [address]- 0695 Jun, [facility] [address] [id number] [place] [address]- 9163 Jun, [facility] [address] [id number] [place] [address]- 0221 15 Jun, 2013 [facility] [address] [id number] [place] [address]- 5045 14 Jun, 2013 [facility] [address] [id number] [place] [address]- 9021 Jun, [facility] [address] [id number] [place] [address]- 9900 Jun, [facility] [address] [id number] [place] [address]- 8718 Jun, [facility] [address] [id number] [place] Jun, [facility] [facility] [address] [id number] [place] [address]- 1451 Jun, [facility] [address] [id number] [place] [address]- 3036 May, [facility] [address] [id number] [place] [address]- 9339 May, [facility] [place] [facility] [address] [id number] [place] [address]- 7957 May, [facility] [facility] [address] [id number] [place] [address]- 6793 May, [facility] [place] [facility] [address] [id number] [place] [address]- 6171 May, [facility] [place] [facility] [address] [id number] [place] [address]- 4672 May, [facility] [place] [facility] [address] [id number] [place] [address]- 3302 May, [facility] [place] [address] [id number] [place] [address]- 8417 May, [facility] [place] [facility] [address] [id number] [place] [address]- 7428 May, [facility] [place] [facility] [address] [id number] [place] [address]- 4171 Apr, [facility] [place] [facility] [address] [id number] [place] [address]- 2513 Apr, [facility] [place] [facility] [address] [id number] [place] [address]- 8473 Apr, [facility] [place] [facility] [address] [id number] [place] [address]- 6919 Apr, [facility] [address] [id number] [place] [address]- 7127 Apr, [facility] [address] [id number] [place] [address]- 2953 Apr, [facility] [address] [id number] [place] [address]- 8858 Apr, [facility] [address] [id number] [place] [address]- 9194 March, [facility] [address] [id number] [place] [address]- 3244 Feb, [facility] [address] [id number] [place] [address]- 8650 Feb, [facility] [address] [id number] [place] [address]- 3959 Feb, [facility] [address] [id number] [place] [address]- 0554 Jan, [facility] [address] [id number] [place] [address]- 0786 Jan, [facility] [address] [id number] [place] [address]- 8774 Jan, [facility] [address] [id number] [place] [address]- 5143 14 Jan, 2013 [facility] [address] [id number] [place] [address]- 3551 12 Jan, 2013 [facility] [address] [id number] [place] [address]- 7824 08 Jan, 2013 [facility] [address] [id number] [place] [address]- 8886 07 Jan, 2013 [facility] [address] [id number] [place] [address]- 4026 Jan, [facility] [address] [id number] [place] [address]- 6238 28 Dec, 2012 [facility] [place] [facility] [address] [id number] [place] [address]- 0756 25 Dec, 2012 [facility] [place] [facility] [address] [id number] [place] [address]- 9926 13 Dec, 2012 [facility] [place] [facility] [address] [id number] [place] [address]- 8860 11 Dec, 2012 [facility] [place] [facility] [address] [id number] [place] [address]- 5053 07 Dec, 2012 [facility] [place] [facility] [address] [id number] [place] [address]- 0629 06 Dec, 2012 [facility] [place] [facility] [address] [id number] [place] [address]- 7283 05 Dec, 2012 [facility] [place] [facility] [address] [id number] [place] [address]- 4316 Nov, [facility] [place] [facility] [address] [id number] [place] [address]- 8747 Nov, [facility] [place] [facility] [address] [id number] [place] [address]- 4053 Nov, [facility] [place] [facility] [address] [id number] [place] [address]- 5361 Nov, [facility] [place] [facility] [address] [id number] [place] [address]- 6378 10 Nov, 2012 [facility] [place] [facility] [address] [id number] [place] [address]- 3738 Nov, [facility] [place] [facility] [address] [id number] [place] [address]- 4970 Nov, [facility] [place] [facility] [address] [id number] [place] [address]- 6744 Oct, [facility] [place] [facility] [address] [id number] [place] [address]- 9312 Oct, [facility] [address] [id number] [place] [address]- 2630 Oct, [facility] [place] [facility] [address] [id number] [place] [address]- 9086 Oct, [facility] [address] [id number] [place] [address]- 4216 Oct, [facility] [address] [id number] [place] [address]- 6539 Oct, [facility] [address] [id number] [place] [address]- 6699 Oct, [facility] [address] [id number] [place] [address] Oct, [facility] [address] [id number] [place] [address] Oct, [facility] [address] [id number] [place] [address] Oct, [facility] [address] [id number] [place] [address] Oct, [facility] [address] [id number] [place] [address] Oct, [facility] [place] [facility] [address] [id number] [place] [address] Sep, [facility] [address] [id number] [place] [address] Sep, [facility] [place] [facility] [address] [id number] [place] [address] Sep, [facility] [place] [facility] [address] [id number] [place] [address] Sep, [facility] [place] [facility] [address] [id number] [place] [address] Sep, [facility] [place] [facility] [address] [id number] [place] [address] Sep, [facility] [place] [facility] [address] [id number] [place] [address] Sep, [facility] [place] [facility] [address] [id number] [place] [address] Sep, [facility] [place] [facility] [address] [id number] [place] [address] Sep, [facility] [place] [facility] [address] [id number] [place] [address] Sep, [facility] [place] [facility] [address] [id number] [place] [address] Sep, [facility] [place] [facility] [address] [id number] [place] [address] Aug, [facility] [place] [facility] [address] [id number], [place] [address] Aug, [facility] [place] [facility] [address] [id number], [place] [address] Aug, [facility] [place] [facility] [address] [facility] [id number], [place] [address] Aug, [facility] [place] [facility] [address] [facility] [id number], [place] [address] Aug, [facility] [place] [facility] [address] [id number], [place] [address] Aug, [facility] [place] [facility] [address] [id number], [place] [address] Aug, [facility] [place] [facility] [address] [id number], [place] [address] Aug, [facility] [place] [facility] [address] [facility] [id number][place] [address] Aug, [facility] [place] [facility] [address] [id number], [place] [address] Aug, [facility] [place] [facility] [address] [id number] [place] [address] Jul, [facility] [place] [facility] [address] [id number] [place] [address] Jul, [facility] [place] [facility] [address] [id number] [place] [address] Jul, [facility] [place] [facility] [address] [id number] [place] [address] Jul, [facility] [place] [facility] [address] [id number] [place] [address] Jun, [facility] [place] [facility] [address] [id number] [place] [address] Jun, [facility] [place] [facility] [address] [id number] [place] [address]85 Jun, [facility] [place] [facility] [address] [id number] [place] [address] 20[address] Jun, [facility] [place] [facility] [address] [id number] [place] [address]44 Jun, [facility] [place] [facility] [address] [id number] [place] [address]118 Jun, [facility] [place] [facility] [address] [id number] [place] [address] Jun, [facility] [place] [facility] [address] [id number] [place] [address] May, [facility] [place] [facility] [address] [id number] [place] [address] May, [facility] [place] [facility] [address] [id number] [place] [address] May, [facility] [place] [facility] [address] [id number] [place] [address] 379[address] May, [facility] [place] [facility] [address] [id number] [place] [address]- 9785 May, [facility] [place] [facility] [address] [id number] [place] [address]- [address] Apr, [facility] [place] [facility] [address] [id number] [place] [address]- [address] Apr, [facility] [place] [facility] [address] [id number] [place] [address]- 4264 Apr, [facility] [place] [facility] [address] [id number] [place] [address] 48[address] Apr, [facility] [place] [facility] [address] [id number] [place] [address]- 3592 Apr, [facility] [place] [facility] [address] [id number] [place] [address] March, [facility] [place] [facility] [address] [id number] [place] [address]- [address] March, [facility] [place] [facility] [address] [id number] [place] [address]- 0[address] March, [facility] [place] [facility] [address] [id number] [place] [address]- [address] March, [facility] [place] [facility] [address] [id number] [place] [address] March, [facility] [place] [facility] [address] [id number] [place] [address]- [address] March, [facility] [place] [facility] [address] [id number] [place] [address]- [address] March, [facility] [place] [facility] [address] [id number] [place] [address]- 2096 March, [facility] [place] [facility] [address] [id number] [place] [address] March, [facility] [place] [facility] [address] [id number] [place] [address] March, [facility] [address] [id number] [place] [address]- [address] 30 Feb, 2012 [facility] [place] [facility] [address] [id number] [place] [address] 73[address] Feb, [facility] [place] [facility] [address] [id number] [place] [address]- 0294 Feb, [facility] [place] [facility] [address] [id number] [place] [address]- 6[address] Feb, [facility] [place] [facility] [address] [id number] [place] [address]- 3570 Feb, [facility] [place] [facility] [address] [id number] [place] [address]- 9201 Feb, [facility] [place] [facility] [address] [id number] [place] [address]- [address] Feb, [facility] [place] [facility] [address] [id number] [place] [address]- 2489 Feb, [facility] [place] [facility] [address] [id number] [place] [address]- 0167 Feb, [facility] [place] [facility] [address] [id number] [place] [address]- 1076 Jan, [facility] [place] [facility] [address] [id number] [place] [address]- 40[address] Jan, [facility] [place] [facility] [address] [id number], [place] [address] Jan, [facility] [place] [facility] [address] [id number] [place] [place] [address] Jan, [facility] [place] [facility] [address] [id number] [place] [address] Dec, [facility] [place] [facility] [address] [id number] [place] [address] Dec, [facility] [place] [facility] [address] [address] Nov, [facility] [address] [place] [address] Nov, [facility] [address], [place] [address] Nov, [facility] [id number] [place] [address] Nov, [facility] [id number] [place] [address] Nov, [facility] [id number] [place] [address] Oct, [facility] [id number] [place] [address] Oct, [facility] [id number] [place] [address] Oct, [facility] [address] [place] [address] Oct, [facility] [id number] [place] [address] Oct, [facility] [address] [place] [address] Oct, [facility] [address] [place] [address] Oct, [facility] [address] [place] [address] Oct, [facility] [address], [place] [address] Sep, IMMUNIZATIONS No Known Immunizations SOCIAL HISTORY Never Assessed REASON FOR VISIT Controlled Med Refill PLAN OF CARE VITAL SIGNS MEDICATIONS Medication Instructions Dosage Frequency Start Date End Date Duration Status Ativan 0.5 MG Orally at HS and BID PRN 1 tablet Dec, Active RESULTS No Results PROCEDURES No Known procedures INSTRUCTIONS MEDICATIONS ADMINISTERED No Known Medications MEDICAL (GENERAL) HISTORY Type Description Date 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
--- OUTSIDE RECORDS SUMMARY | 2018-09-04 11:47 | XMS REPORT ---
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 Name Role Phone SHAHNAZ MARQUEZ Unavailable PROBLEMS Type Condition ICD9-CM Code CHD65-LW Code Onset Dates Condition Status SNOMED Code Problem Low back pain M54.5 Active 254262675 Problem Ventral hernia without obstruction or gangrene K43.9 Active 129730432 Problem Type 2 diabetes mellitus without complication, without long-term current use of insulin E11.9 Active 969495756 Problem Hypertension I10 Active 13667272 Problem Coronary artery disease I25.10 Active 91260505 Problem Hyperlipidemia E78.5 Active 90750799 Problem Other chronic pain G89.29 Active 03455344 Problem Paroxysmal atrial fibrillation I48.0 Active 590068983 Problem Insomnia G47.00 Active 600629788 Problem Pharyngeal dysphagia R13.13 Active 24076332269668 Problem Reactive depression F32.9 Active 09155739 Problem Peripheral vascular disease I73.9 Active 639225009 Problem Anxiety F41.9 Active 74360100 ALLERGIES No Information ENCOUNTERS Encounter Location Date Diagnosis Via [facility] [place] [address] [place] [id number] May, Anxiety F41.9 ; Type 2 diabetes mellitus without complication, without long-term current use of insulin E11.9 ; Hypertension I10 ; Low back pain M54.5 ; Paroxysmal atrial fibrillation I48.0 and 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 [facility] [address] [facility] [id number], [place] [address] May, Other chronic pain G89.29 [facility] [address] [place] [id number] May, Low back pain M54.5 [facility] [address] [id number], [place] [address] May, [facility] [address] [facility] [id number], [place] [address] 4485 Apr, Other chronic pain G89.29 [facility] [address] [id number], [place] [address] 2598 Apr, [facility] [address] [facility] [id number], [place] [address] Apr, [facility] [address] [place] [id number] Apr, Closed compression fracture of L3 lumbar vertebra with routine healing, subsequent encounter S32.030D [facility] [address] [place] [id number] Apr, Low back pain M54.5 [facility] [address] [place] [id number] Apr, Coccydynia M53.3 [facility] [address] [facility] [id number] [place] [address]94- 1648 March, [facility] [address] [facility] [id number] [place] [address] 10210- 9878 March, Other chronic pain G89.29 [facility] [id number] [place] [address] 33527- 4803 March, [facility] [address] [facility] [id number], [place] [address] March, [facility] [address] [facility] [id number], [place] [address] 4939 Feb, [facility] [address] [facility] [id number], [place] [address]37 Feb, Other chronic pain G89.29 [facility] [address] [place] [id number] Feb, Other chronic pain G89.29 and Anxiety F41.9 [facility] [address] [facility] [id number], [place] [address] Feb, [facility] [address] [id number] [address] Jan, [facility] [address] [id number], [place] [address] 2150 Jan, [facility] [address]00565100[place], [place] [address] 9[address] Jan, [place] [address] [id number], [place] [address] 0449 Jan, [facility] [address] [id number], [place] [address] Dec, [facility] [address] [place] [id number] Dec, Peripheral vascular disease I73.9 ; 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 [address] [id number] [place] [address] Nov [facility] [id number][place] [id number] Nov, Anxiety F41.9 [place] [address] [id number], [place] [address] Nov, [place] [id number][place] [id number] Nov, Anxiety F41.9 [facility] [place] [facility] [address] [facility] [place] [id number] Nov, Status post surgery Z98.890 ; Confused R41.0 ; Anxiety F41.9 and Other chronic pain G89.29 [facility] [id number], [place] [address] Nov, Other chronic pain G89.29 [facility] [address] [facility] [id number], [place] [address] Oct, [place] [id number][place] [address] Oct, Other chronic pain G89.29 [facility] [address]00565100[place], [place] [address] Oct, Anxiety F41.9 [facility] [id number], [place] [address] Sep, Other chronic pain G89.29 [facility] [id number] [place] [id number] Sep, [facility] [address] [place] [id number] Aug, Dysuria R30.0 and Anxiety F41.9 [facility] [address]00565100[place], [place] [address] 2546 Aug, [facility] [id number] [place] [id number] Aug, Other chronic pain G89.29 [facility] [address]00565100[place], [place] [address] 2558 Jul, Other chronic pain G89.29 [facility] [id number], [place] [address] Jun, [facility] [id number], [place] [address] Jun, Other chronic pain G89.29 [facility] [address]00565100[place], [place] [address] 7[address] Jun, [facility] [address] [id number], [place] [address] May, Other chronic pain G89.29 [facility] [id number] [place] [address]99 2546 Apr, Other chronic pain G89.29 [facility] [address] [place] [id number] Apr, Reactive depression F32.9 and Pharyngeal dysphagia R13.13 [facility] [address] [facility] [id number], [place] [address] Apr, Urinary tract infection without hematuria, site unspecified N39.0 [facility] [address] [facility] [id number], [place] [address] 8241 March, Other chronic pain G89.29 [facility] [address] [facility] [id number], [place] [address] 2960 Feb, Other chronic pain G89.29 [facility] [address] [facility] [id number], [place] [address] 4163 Feb, [facility] [id number] [place] [id number] Feb, [facility] [address] [place] [id number] Feb, Dysuria R30.0 and Ventral hernia without obstruction or gangrene K43.9 [facility] [address]00565100[place], [place] [address] 6714 Jan, Other chronic pain G89.29 [facility] [id number], [place] [id number] Dec, Other chronic pain G89.29 [facility] [address] [id number], [place] [address] 9873 Nov, Other chronic pain G89.29 [facility] [address] [place] [id number] Nov, Lymphadenitis I88.9 [facility] [address] [facility] [id number], [place] [address] 1192 Nov, Other chronic pain G89.29 [facility] [address] [facility] [id number][place] [address]287 Nov, [facility] [address] [id number] [id number] Nov, Other chronic pain G89.29 [facility] [address] [place] [id number] Oct, Low back pain M54.5 ; Hypertension I10 and Type 2 diabetes mellitus without complication, without long-term current use of insulin E11.9 [facility] [id number] [place] [address] 98354- 7764 Oct, [facility] [id number] [place] [address] 26809- 9068 Oct, [facility] [id number] [place] [address] 97122- 8143 Oct, [facility] [id number] [place] [address] 58450- 7558 Oct, [facility] [id number] [place] [address] 67717- 8669 Sep, [facility] [id number] [place] [address] 44509- 3541 Sep, [facility] [id number] [place] [address] 20985- 9260 Aug, Other chronic pain G89.29 [facility] [id number] [place] [address] 85110- 4553 Jul, [facility] [id number] [place] [address] 70096- 4889 Jul, [facility] [id number] [place] [address] 80228- 3271 Jul, [facility] [id number] [place] [address] 92218- 8729 Jun, [facility] [address] [place] [address] 09827- 3351 Jun, [facility] [address] [place] [id number] Jun, Low back pain M54.5 ; Other chronic pain G89.29 and Coronary artery disease I25.10 [facility] [address] [place] [address] 94285- 3321 Jun, [facility] [address]00565100[place], [place] [address]- 7064 May, [facility] [address]00565100[place], [place] [address]- 2405 May, [facility] [address]00565100[place], [place] [address]- 6203 May, Other chronic pain G89.29 [facility] [address] [id number], [place] [address]- 2824 May, [facility] [id number] [place] [address] 61397- 5927 Apr, [facility] [id number] [place] [address] 91931- 7699 Apr, Acute cystitis without hematuria N30.00 [facility] [id number] [place] [address] 21564- 9558 16 Apr, 2016 Acute cystitis without hematuria N30.00 ; Coronary artery disease I25.10 ; Low back pain M54.5 and Other chronic pain G89.29 [facility] [address]00565[address], [place] [address]- 3551 Apr, Other chronic pain G89.29 [facility] [address]00565[address], [place] [address]- 1727 March, Other chronic pain G89.29 [facility] [address]65[address], [place] [address]- 4518 Feb, [facility] [address]00565[address], [place] [address]- 4000 Feb, Arthritis M19.90 [facility] [address]65[address], [place] [address]- 8838 Feb, [facility] [address]00565[address], [place] [address]- 4184 Jan, [facility] [address], [place] [address]- 9022 Jan, [facility] [id number] [place] [address] 19839- 8051 Jan, Other chronic pain G89.29 [facility] [address] [place] [address] 64566- 7516 Jan, Hypertension I10 ; Coronary artery disease I25.10 and Insomnia G47.00 [facility] [id number] [place] [address] 76343- 6947 Jan, [facility] [id number] [place] [address] 40910- 3312 Dec, Right hip pain M25.551 [facility] [id number] [place] [address] 54831- 5934 Dec, [facility] [id number] [place] [address] 75712- 6299 Dec, [facility] [address] [place] [address] 77501- 3635 Dec, [facility] [id number] [place] [address] 38202- 9416 Dec, Other chronic pain G89.29 [facility] [address]65[address], [place] [address]- 9656 Dec, [facility] [address], [place] [address]- 6458 Nov, [facility] [address], [place] [address] 2547 Nov, Other chronic pain G89.29 [facility] [address]65[address], [place] [address] 254 Nov, Right hip pain M25.551 and Coronary artery disease I25.10 [facility] [address] [place] [address] 81949- 3917 Nov, Other chronic pain G89.29 [facility] [address] [id number], [place] [address]- 0005 Oct, [facility] [id number] [place] [address] 08354- 9107 Oct, [facility] [id number] [place] [address] 62257- 3023 Sep, [facility] [id number] [place] [address] 50862- 3887 Sep, [facility] [id number] [place] [address] 45101- 4921 Aug, [facility] [id number] [place] [address] 36960- 6884 Aug, Hypertension I10 ; Coronary artery disease I25.10 and Arthritis M19.90 [facility] [id number] [place] [address] 87425- 7530 Jun, [facility] [id number] [place] [address] 14517- 9102 Jun, Essential hypertension, benign 401.1 ; Other chronic pain 338.29 and Chronic airway obstruction, not elsewhere classified 496 [facility] [address], [place] [address]- 0590 Jun, [facility] [id number] [place] [address] 68106- 8433 Jun, [facility] [address], [place] [address]- 0691 Jun, [facility] [id number] [place] [address] 77310- 1660 May, [facility] [address] [id number], [place] [address]- 5701 May, [facility] [id number] [place] [address] 98848- 0044 Apr, [facility] [address] [id number] [place] [address]- 1018 Apr, [facility] [address] [id number] [place] [address]- 9917 Apr, [facility] [address] [id number] [place] 6321 March, [facility] [address] [id number] [place] [address]- 2049 March, [facility] [address] [id number] [place] 7396 March, [facility] [address] [id number] [place] [address]- 0651 March, [facility] [address] [id number] [place] 7600 March, Sialadenitis 527.2 [facility] [address] [id number] [place] [address]- 6566 Feb, [facility] [address] [id number] [place] [address]- 4607 Feb, [facility] [address] [id number] [place] [address]- 5329 Feb, [facility] [address] [id number] [place] [address]- 9184 Feb, [facility] [address] [id number] [place] [address]- 0284 Feb, [facility] [address] [id number] [place] 9089 Jan, [facility] [address] [id number] [place] [address]- 2985 Jan, [facility] [address] [id number] [place] [address]- 4224 Jan, [facility] [address] [id number] [place] [address]- 8815 Jan, [facility] [place] [facility] [address] [id number] [place] [address]- 2637 Jan, [facility] [place] [facility] [address] [id number] [place] [address]- 9856 Jan, [facility] [place] [facility] [address] [id number] [place] [address]- 3467 Dec, 2014 [facility] [place] [facility] [address] [id number] [place] [address]- 3436 Dec, 2014 [facility] [place] [facility] [address] [id number] [place] [address]- 2099 Dec, 2014 [facility] [place] [facility] [address] [facility] [id number] [place] [address]- 4612 Dec, 2014 [facility] [place] [facility] [address] [id number] [place] [address]- 9615 Dec, [facility] [place] [facility] [address] [id number] [place] [address]- 7280 Dec, [facility] [place] [facility] [address] [facility] [id number] [place] [address]- 7320 Nov, [facility] [place] [facility] [address] [id number] [place] [address]- 3388 Nov, [facility] [place] [facility] [address] [id number] [place] [address]- 2541 Nov, [facility] [place] [facility] [address] [id number] [place] [address]- 3277 Nov, [facility] [place] [facility] [address] [id number] [place] [address]- 2548 Nov, [facility] [place] [facility] [address] [id number] [place] [address]- 2540 Nov, [facility] [place] [facility] [address] [id number] [place] [address]- 2197 Nov, [facility] [place] [facility] [address] [id number] [place] [address]- 4134 Nov, [facility] [place] [facility] [address] [id number] [place] [address]- 5033 Nov, [facility] [place] [facility] [address] [facility] [id number] [place] [address]- 8214 Nov, [facility] [place] [facility] [address] [id number] [place] [address]- 1921 Nov, [facility] [place] [facility] [address] [id number] [place] [address]- 8062 Nov, [facility] [place] [facility] [address] [id number] [place] [address]- 1120 Nov, [facility] [place] [facility] [address] [id number] [place] [address]- 8465 Nov, [facility] [place] [facility] [address] [id number] [place] [address]- 5296 Oct, [facility] [place] [facility] [address] [id number] [place] [address]- 0093 Oct, [facility] [place] [facility] [address] [id number] [place] [address]- 6387 Oct, [facility] [place] [facility] [address] [id number], [place] [address]- 7186 18 Oct, 2014 [facility] [place] [facility] [address] [id number], [place] [address]- 8054 18 Oct, 2014 [facility] [place] [facility] [address] [id number] [place] [address]- 6932 17 Oct, 2014 [facility] [place] [facility] [address] [id number] [place] [address]- 5706 17 Oct, 2014 [facility] [place] [facility] [address] [id number] [place] [address]- 8935 10 Oct, 2014 [facility] [place] [facility] [address] [id number] [place] [address]- 7193 Oct, [facility] [place] [facility] [address] [id number] [place] [address]- 1528 Sep, [facility] [place] [facility] [address] [id number] [place] [address]- 3711 Sep, [facility] [place] [facility] [address] [id number] [place] [address]- 2391 Sep, [facility] [place] [facility] [address] [id number] [place] [address]- 1641 Sep, [facility] [place] [facility] [address] [id number] [place] [address]- 7456 Sep, [facility] [place] [facility] [address] [id number] [place] [address]- 8058 Sep, [facility] [place] [facility] [address] [id number] [place] [address]- 0063 Sep, [facility] [place] [facility] [address] [id number] [place] [address]- 5366 Sep, [facility] [place] [facility] [address] [id number] [place] [address]- 0920 Sep, [facility] [place] [facility] [address] [facility] [id number] [place] [address] Sep, [facility] [place] [facility] [address] [id number] [place] [address] Sep, [facility] [place] [facility] [address] [id number] [place] [address] Sep, [facility] [place] [facility] [address] [id number] [place] [address] Aug, [facility] [place] [facility] [address] [id number] [place] [address] Aug, [facility] [place] [facility] [address] [id number] [place] [address] Aug, [facility] [place] [facility] [address] [id number] [place] [address] 29 Aug, 2013 [facility] [place] [facility] [address] [id number] [place] [address] 28 Aug, 2014 [facility] [place] [facility] [address] [id number] [place] [address] 28 Aug, 2014 [facility] [place] [facility] [address] [id number] [place] [address]- [address] Aug, [facility] [place] [facility] [address] [id number] [place] [address]- [address] 17 Aug, 2013 [facility] [place] [facility] [address] [id number] [place] [address]- [address] 30 Jul, 2013 [facility] [place] [facility] [address] [id number] [place] [address]- [address] 30 Jul, 2013 [facility] [place] [facility] [address] [id number] [place] [address]- [address] 30 Sep, 2013 [facility] [place] [facility] [address] [id number] [place] [address] 30 Sep, 2013 [facility] [place] [facility] [address] [id number] [place] [address]- [address] 25 Jul, 2013 [facility] [place] [facility] [address] [id number] [place] [address]- [address] 25 Sep, 2013 [facility] [place] [facility] [address] [id number], [place] [address] 15 Sep, 2013 [facility] [place] [facility] [address] [id number] [place] [address]- [address] 15 Sep, 2013 [facility] [place] [facility] [address] [id number] [place] [address]- [address] 11 Jul, 2013 [facility] [place] [facility] [address] [id number] [place] [address]- [address] 11 Jul, 2013 [facility] [place] [facility] [address] [id number] [place] [address]- [address] Jun, [facility] [place] [facility] [address] [id number] [place] [address]- [address] Jun, [facility] [place] [facility] [address] [id number] [place] [address]- [address] Jun, [facility] [place] [facility] [address] [id number] [place] [address]- [address] Jun, [facility] [place] [facility] [address] [id number] [place] [address]- [address] Jun, [facility] [place] [facility] [address] [id number] [place] [address]- [address] Jun, [facility] [place] [facility] [address] [id number] [place] [address]- [address] Jun, [facility] [place] [facility] [address] [id number] [place] [address]- [address] Jun, [facility] [place] [facility] [address] [id number] [place] [address]- [address] Jun, [facility] [place] [facility] [address] [id number] [place] [address]- [address] Jun, [facility] [place] [facility] [address] [id number] [place] [address]- [address] Jun, [facility] [place] [facility] [address] [id number] [place] [address]- [address] Jun, [facility] [place] [facility] [address] [id number] [place] [address]- [address] Jun, [facility] [place] [facility] [address] [id number] [place] [address]- [address] Jun, [facility] [place] [facility] [address] [id number] [place] [address]- [address] Jun, [facility] [place] [facility] [address] [id number] [place] [address]- [address] Jun, [facility] [place] [facility] [address] [id number] [place] [address]- [address] Jun, [facility] [place] [facility] [address] [id number] [place] [address]- [address] Jun, [facility] [place] [facility] [address] [id number] [place] [address]- [address] Jun, [facility] [place] [facility] [address] [id number] [place] [address]- [address] Jun, [facility] [place] [facility] [address] [id number] [place] [address]- [address] Jun, [facility] [place] [facility] [address] [id number] [place] [address]- [address] Jun, [facility] [place] [facility] [address] [id number] [place] [address] May, [facility] [place] [facility] [address] [id number] [place] [address] 9584 May, [facility] [place] [facility] [address] [id number] [place] [address] 8848 May, [facility] [place] [facility] [address] [id number] [place] [address] 6099 May, [facility] [place] [facility] [address] [id number] [place] [address] 1425 May, [facility] [place] [facility] [address] [id number] [place] [address]- 8728 May, [facility] [place] [facility] [address] [id number] [place] [address]- 6235 May, [facility] [place] [facility] [address] [id number] [place] [address]- 8082 May, [facility] [place] [facility] [address] [id number] [place] [address]- 4203 May, [facility] [place] [facility] [address] [id number] [place] [address]- 2297 May, [facility] [place] [facility] [address] [id number] [place] [address]- 5183 May, [facility] [place] [facility] [address] [id number] [place] [address]- 2184 May, [facility] [place] [facility] [address] [id number] [place] [address]- 6157 May, [facility] [place] [facility] [address] [id number] [place] [address]- 8411 Apr, [facility] [place] [facility] [address] [id number] [place] [address]- 5376 Apr, [facility] [place] [facility] [address] [id number] [place] [address]- 7526 Apr, [facility] [place] [facility] [address] [id number] [place] [address]- 3639 Apr, [facility] [place] [facility] [address] [id number] [place] [address]- 1215 Apr, [facility] [place] [facility] [address] [id number] [place] [address]- 1063 Apr, [facility] [place] [facility] [address] [id number] [place] [address]- 1931 Apr, [facility] [place] [facility] [address] [id number] [place] [address]- 6139 Apr, [facility] [place] [facility] [address] [id number] [place] [address]- 7307 Apr, [facility] [place] [facility] [address] [id number] [place] [address] 1959 March, [facility] [place] [facility] [address] [id number] [place] [address]- 1637 March, [facility] [place] [facility] [address] [id number] [place] [address]- 0662 March, [facility] [place] [facility] [address] [id number] [place] [address]- 6565 March, [facility] [address] [id number] [place] [address]- 2699 March, [facility] [address] [id number] [place] [address]- 6728 March, [facility] [address] [id number] [place] [address]- 1599 March, [facility] [place] [facility] [address] [id number] [place] [address]- 4037 March, [facility] [address] [id number] [place] [address]- 4625 March, [facility] [address] [id number] [place] [address]- 0157 March, [facility] [address] [id number] [place] [address]- 3526 March, [facility] [address] [id number] [place] [address]- 0125 March, [facility] [address] [id number] [place] [address]- 1404 March, [facility] [address] [id number] [place] [address]- 1818 March, [facility] [address] [id number] [place] [address]- 5160 March, [facility] [place] [facility] [address] [id number] [place] [address]- 8909 March, [facility] [place] [facility] [address] [id number] [place] [address]- 1317 March, [facility] [place] [facility] [address] [id number] [place] [address]- 3095 March, [facility] [place] [facility] [address] [id number] [place] [address] March, [facility] [place] [facility] [address] [id number] [place] [address]- 6323 March, [facility] [place] [facility] [address] [id number] [place] [address]- 9515 Feb, [facility] [place] [facility] [address] [id number] [place] [address]- 2756 Feb, [facility] [place] [facility] [address] [id number] [place] [address]- 1096 Feb, [facility] [place] [facility] [address] [id number] [place] [address]- 8118 Feb, [facility] [place] [facility] [address] [id number] [place] [address]- 3147 Feb, [facility] [place] [facility] [address] [id number] [place] [address]- 9864 Feb, [facility] [place] [facility] [address] [id number] [place] [address]- 6381 Feb, [facility] [place] [facility] [address] [id number] [place] [address]- 6392 Feb, [facility] [place] [facility] [address] [id number] [place] [address]- 1592 Jan, [facility] [place] [facility] [address] [id number] [place] [address]- 5754 Jan, [facility] [place] [facility] [address] [id number] [place] [address]- 9547 24 Jan, 2014 [facility] [place] [facility] [address] [id number] [place] [address]- 9060 24 Jan, 2014 [facility] [place] [facility] [address] [id number] [place] [address]- 4158 13 Jan, 2014 [facility] [place] [facility] [address] [id number] [place] [address] 13 Jan, 2014 [facility] [place] [facility] [address] [id number] [place] [address]- 8968 Jan, [facility] [place] [facility] [address] [id number] [place] [address]- 2258 Jan, [facility] [place] [facility] [address] [id number] [place] [address]- 8245 Jan, [facility] [place] [facility] [address] [facility] [id number] [place] [address]- 8354 Jan, [facility] [place] [facility] [address] [id number] [place] [address]- 2579 Dec, [facility] [place] [facility] [address] [id number] [place] [address]- 0523 Dec, [facility] [place] [facility] [address] [facility] [id number] [place] [address]- 3332 Dec, [facility] [place] [facility] [address] [facility] [id number] [place] [address]- 2035 Dec, [facility] [place] [facility] [address] [id number] [place] [address]- 5051 Dec, [facility] [place] [facility] [address] [facility] [id number] [place] [address]- 6519 Dec, [facility] [place] [facility] [address] [facility] [id number] [place] [address]- 1032 Dec, [facility] [place] [facility] [address] [id number] [place] [address]- 3286 Dec, [facility] [place] [facility] [address] [facility] [id number], [place] [address]- 9039 Nov, [facility] [place] [facility] [address] [id number] [place] [address]- 2761 Nov, [facility] [place] [facility] [address] [facility] [id number] [place] [address]- 9459 Nov, [facility] [place] [facility] [address] [facility] [id number] [place] [address]- 4763 Nov, [facility] [place] [facility] [address] [id number] [place] [address]- 5881 Nov, [facility] [place] [facility] [address] [id number] [place] [address]- 3718 Nov, [facility] [place] [facility] [address] [id number] [place] [address]- 6975 Nov, [facility] [place] [facility] [address] [id number] [place] [address]- 1126 Nov, [facility] [place] [facility] [address] [id number] [place] [address]- 7355 Nov, [facility] [place] [facility] [address] [id number] [place] [address]- 4941 Nov, [facility] [place] [facility] [address] [id number] [place] [address]- 1435 Nov, [facility] [place] [facility] [address] [id number] [place] [address]- 2539 Nov, [facility] [place] [facility] [address] [id number] [place] [address]- 2434 Nov, [facility] [place] [facility] [address] [id number] [place] [address]- 6030 Oct, [facility] [place] [facility] [address] [id number] [place] [address]- 7304 Oct, [facility] [place] [facility] [address] [id number] [place] [address]- 7751 Oct, [facility] [place] [facility] [address] [id number] [place] [address]- 1257 Oct, [facility] [place] [facility] [address] [id number] [place] [address]- 0183 Oct, [facility] [place] [facility] [address] [id number] [place]14 Oct, [facility] [place] [facility] [address] [id number] [place] [address]- 9121 18 Oct, 2013 [facility] [address] [id number] [place] [address]- 5756 18 Oct, 2013 [facility] [place] [facility] [address] [id number] [place] [address]- 9213 17 Oct, 2013 [facility] [place] [facility] [address] [facility] [id number] [place] [address]- 5931 17 Oct, 2013 [facility] [place] [facility] [address] [id number] [place] [address]- 9922 Oct, [facility] [place] [facility] [address] [id number] [place] [address]- 6727 Oct, [facility] [place] [facility] [address] [id number] [place] [address]- 7919 Oct, [facility] [place] [facility] [address] [facility] [id number] [place] [address]- 4351 Oct, [facility] [place] [facility] [address] [id number], [place] [address]- 9400 14 Sep, 2013 [facility] [place] [facility] [address] [id number], [place] [address]- 3347 14 Sep, 2013 [facility] [place] [facility] [address] [id number], [place] [address]- 6894 05 Sep, 2013 [facility] [place] [facility] [address] [id number], [place] [address]- 3455 05 Sep, 2013 [facility] [place] [facility] [address] [id number], [place] [address]- 7664 Sep, [facility] [place] [facility] [address] [id number], [place] [address]- 8531 Sep, [facility] [place] [facility] [address] [id number], [place] [address]- 4382 Sep, [facility] [place] [facility] [address] [facility] [id number], [place] [address]- 7584 Sep, [facility] [place] [facility] [address] [id number] [place] [address]- 5070 Sep, [facility] [place] [facility] [address] [id number] [place] [address]- 6185 Sep, [facility] [place] [facility] [address] [id number] [place] [address]- 8458 Aug, [facility] [place] [facility] [address] [id number] [place] [address]- 0896 Aug, [facility] [place] [facility] [address] [id number] [place] [address]- 8387 Aug, [facility] [place] [facility] [address] [id number] [place] [address]- 9497 Aug, [facility] [place] [facility] [address] [id number] [place] [address]- 1866 Aug, [facility] [place] [facility] [address] [id number] [place] [address]- 8266 Aug, [facility] [place] [facility] [address] [id number] [place] [address]- 2047 Aug, [facility] [place] [facility] [address] [id number] [place] [address]- 9174 Aug, [facility] [place] [facility] [address] [id number] [place] [address]- 5979 Aug, [facility] [place] [facility] [address] [id number] [place] [address]- 7748 Aug, [facility] [place] [facility] [address] [id number], [place] [address]- 3548 Aug, [facility] [place] [facility] [address] [id number] [place] [address]- 4191 Aug, [facility] [place] [facility] [address] [id number] [place] [address]- 2734 Aug, [facility] [place] [facility] [address] [id number] [place] [address]- 2983 Aug, [facility] [place] [facility] [address] [id number] [place] [address]- 6128 17 Aug, 2013 [facility] [place] [facility] [address] [id number] [place] [address]- 1650 14 Aug, 2013 [facility] [place] [facility] [address] [id number] [place] [address]- 1601 14 Aug, 2013 [facility] [place] [facility] [address] [id number] [place] [address]- 7628 Aug, [facility] [place] [facility] [address] [id number] [place] [address]- 1447 20 Jul, 2013 [facility] [place] [facility] [address] [id number] [place] [address]- 9710 19 Jul, 2013 [facility] [address] [id number] [place] [address]- 1531 18 Jul, 2013 [facility] [place] [facility] [address] [id number] [place] [address]- 5185 11 Jul, 2013 [facility] [place] [facility] [address] [id number] [place] [address]- 3882 Jul, [facility] [place] [facility] [address] [id number] [place] [address]- 1640 28 Jun, 2013 [facility] [place] [facility] [address] [id number] [place] [address]- 5784 Jun, [facility] [place] [facility] [address] [id number] [place] [address]- 5320 Jun, [facility] [place] [facility] [address] [id number] [place] [address]- 3876 15 Jun, 2013 [facility] [place] [facility] [address] [id number] [place] [address]- 0637 14 Jun, 2013 [facility] [place] [facility] [address] [id number] [place] [address]- 2081 Jun, [facility] [place] [facility] [address] [id number] [place] [address]- 3106 Jun, [facility] [place] [facility] [address] [id number] [place] [address]- 6210 Jun, [facility] [place] [facility] [address] [id number] [place] Jun, [facility] [place] [facility] [address] [id number] [place] [address]- 1128 Jun, [facility] [place] [facility] [address] [id number] [place] [address]- 4825 May, [facility] [place] [facility] [address] [id number] [place] [address]- 0614 May, [facility] [place] [facility] [address] [id number] [place] [address]- 7129 May, [facility] [place] [facility] [address] [id number] [place] [address]- 2943 May, [facility] [place] [facility] [address] [id number] [place] [address]- 6878 May, [facility] [place] [facility] [address] [id number] [place] [address]- 0981 May, [facility] [place] [facility] [address] [id number] [place] [address]- 8824 May, [facility] [place] [facility] [address] [id number] [place] [address]- 0687 May, [facility] [place] [facility] [address] [id number] [place] [address]- 2858 May, [facility] [place] [facility] [address] [id number] [place] [address]- 2569 Apr, [facility] [place] [facility] [address] [id number] [place] [address]- 9085 Apr, [facility] [place] [facility] [address] [id number] [place] [address]- 2252 Apr, [facility] [place] [facility] [address] [id number] [place] [address]- 6421 Apr, [facility] [address] [id number] [place] [address]- 2325 Apr, [facility] [address] [id number] [place] [address]- 4997 Apr, [facility] [address] [id number] [place] [address]- 4126 Apr, [facility] [address] [id number] [place] [address]- 9855 March, [facility] [address] [id number] [place] [address]- 8026 Feb, [facility] [address] [id number] [place] [address]- 9695 Feb, [facility] [address] [id number] [place] [address]- 6044 Feb, [facility] [place] [facility] [address] [id number] [place] [address]- 8707 Jan, [facility] [address] [id number] [place] [address]- 4085 Jan, [facility] [place] [facility] [address] [id number] [place] [address]- 7686 Jan, [facility] [address] [id number] [place] [address]- 4757 14 Jan, 2013 [facility] [address] [id number] [place] [address]- 3119 12 Jan, 2013 [facility] [address] [id number] [place] [address]- 4905 08 Jan, 2013 [facility] [address] [id number] [place] [address]- 3796 07 Jan, 2013 [facility] [address] [id number] [place] [address]- 2722 Jan, [facility] [address] [id number] [place] [address]- 1969 28 Dec, 2012 [facility] [place] [facility] [address] [id number] [place] [address]- 2496 25 Dec, 2012 [facility] [place] [facility] [address] [id number] [place] [address]- 1716 13 Dec, 2012 [facility] [place] [facility] [address] [id number] [place] [address]- 3159 11 Dec, 2012 [facility] [place] [facility] [address] [id number] [place] [address]- 4350 07 Dec, 2012 [facility] [place] [facility] [address] [id number] [place] [address]- 1924 06 Dec, 2012 [facility] [place] [facility] [address] [id number] [place] [address]- 0400 05 Dec, 2012 [facility] [place] [facility] [address] [id number] [place] [address]- 3460 Nov, [facility] [place] [facility] [address] [id number] [place] [address]- 8683 Nov, [facility] [place] [facility] [address] [id number] [place] [address]- 5323 Nov, [facility] [place] [facility] [address] [id number] [place] [address]- 0671 Nov, [facility] [place] [facility] [address] [id number] [place] [address]- 9911 10 Nov, 2012 [facility] [place] [facility] [address] [id number] [place] [address]- 2347 Nov, [facility] [place] [facility] [address] [id number] [place] [address]- 8364 Nov, [facility] [place] [facility] [address] [id number] [place] [address]- 2014 Oct, [facility] [place] [facility] [address] [id number] [place] [address]- 0599 Oct, [facility] [address] [id number] [place] [address]- 1921 Oct, [facility] [place] [facility] [address] [id number] [place] [address]- 7096 Oct, [facility] [address] [id number] [place] [address] Oct, [facility] [address] [id number] [place] [address] Oct, [facility] [address] [id number] [place] [address] Oct, [facility] [address] [id number] [place] [address] Oct, [facility] [address] [id number] [place] [address] Oct, [facility] [address] [id number] [place] [address] Oct, [facility] [address] [id number] [place] [address] Oct, [facility] [address] [id number] [place] [address] Oct, [facility] [place] [facility] [address] [id number] [place] [address] Sep, [facility] [address] [id number] [place] [address] Sep, [facility] [place] [facility] [address] [id number] [place] [address] Sep, [facility] [place] [facility] [address] [id number] [place] [address] Sep, [facility] [place] [facility] [address] [id number] [place] [address] 6[address] Sep, [facility] [place] [facility] [address] [id number] [place] [address] Sep, [facility] [place] [facility] [address] [id number] [place] [address] Sep, [facility] [place] [facility] [address] [id number] [place] [address] Sep, [facility] [place] [facility] [address] [id number] [place] [address] Sep, [facility] [place] [facility] [address] [id number] [place] [address] Sep, [facility] [place] [facility] [address] [id number] [place] [address] Sep, [facility] [place] [facility] [address] [id number] [place] [address] Aug, [facility] [place] [facility] [address] [id number], [place] [address] Aug, [facility] [place] [facility] [address] [id number], [place] [address] Aug, [facility] [place] [facility] [address] [facility] [id number], [place] [address] Aug, [facility] [place] [facility] [address] [facility] [id number], [place] [address] Aug, [facility] [place] [facility] [address] [id number], [place] [address] Aug, [facility] [place] [facility] [address] [id number], [place] [address] Aug, [facility] [place] [facility] [address] [id number], [place] [address] Aug, [facility] [place] [facility] [address] [facility] [id number][place] [address] Aug, [facility] [place] [facility] [address] [id number], [place] [address] Aug, [facility] [place] [facility] [address] [id number] [place] [address] Jul, [facility] [place] [facility] [address] [id number] [place] [address] Jul, [facility] [place] [facility] [address] [id number] [place] [address] Jul, [facility] [place] [facility] [address] [id number] [place] [address] Jul, [facility] [place] [facility] [address] [id number] [place] [address] Jun, [facility] [place] [facility] [address] [id number] [place] [address] Jun, [facility] [place] [facility] [address] [id number] [place] [address] Jun, [facility] [place] [facility] [address] [id number] [place] [address] Jun, [facility] [place] [facility] [address] [id number] [place] [address] Jun, [facility] [place] [facility] [address] [id number] [place] [address]- [address] Jun, [facility] [place] [facility] [address] [id number] [place] [address]- [address] Jun, [facility] [place] [facility] [address] [id number] [place] [address] May, [facility] [place] [facility] [address] [id number] [place] [address]40 May, [facility] [place] [facility] [address] [id number] [place] [address] 395[address] May, [facility] [place] [facility] [address] [id number] [place] [address]80 May, [facility] [place] [facility] [address] [id number] [place] [address]- [address] May, [facility] [place] [facility] [address] [id number] [place] [address]- [address] Apr, [facility] [place] [facility] [address] [id number] [place] [address]- [address] Apr, [facility] [place] [facility] [address] [id number] [place] [address]- [address] Apr, [facility] [place] [facility] [address] [id number] [place] [address]- 9325 Apr, [facility] [place] [facility] [address] [id number] [place] [address]- 1777 Apr, [facility] [place] [facility] [address] [id number] [place] [address]- [address] March, [facility] [place] [facility] [address] [id number] [place] [address]- 1780 March, [facility] [place] [facility] [address] [id number] [place] [address]- [address] March, [facility] [place] [facility] [address] [id number] [place] [address]- 49[address] March, [facility] [place] [facility] [address] [id number] [place] [address] March, [facility] [place] [facility] [address] [id number] [place] [address] March, [facility] [place] [facility] [address] [id number] [place] [address]- [address] March, [facility] [place] [facility] [address] [id number] [place] [address]- 395[address] March, [facility] [place] [facility] [address] [id number] [place] [address]- [address]66 March, [facility] [place] [facility] [address] [id number] [place] [address] March, [facility] [address] [id number] [place] [address]- [address] 30 Feb, 2012 [facility] [place] [facility] [address] [id number] [place] [address]- 6515 Feb, [facility] [place] [facility] [address] [id number] [place] [address]- 9910 Feb, [facility] [place] [facility] [address] [id number] [place] [address]- [address]176 Feb, [facility] [place] [facility] [address] [id number] [place] [address]- [address]145 Feb, [facility] [place] [facility] [address] [id number] [place] [address]- 0367 Feb, [facility] [place] [facility] [address] [id number] [place] [address]- 6536 Feb, [facility] [place] [facility] [address] [id number] [place] [address]- 1631 Feb, [facility] [place] [facility] [address] [id number] [place] [address]- [address]110 Feb, [facility] [place] [facility] [address] [id number] [place] [address]- 9393 Jan, [facility] [place] [facility] [address] [id number] [place] [address]- [address]326 Jan, [facility] [place] [facility] [address] [id number], [place] [address] Jan, [facility] [place] [facility] [address] [id number] [place] [address]- [address]12 Jan, [facility] [place] [facility] [address] [id number] [place] [address] Dec, [facility] [place] [facility] [address] [id number] [place] [address] Dec, [facility] [place] [facility] [id number] [id number] Nov, [facility] [id number] [address] Nov, [facility] [id number] [address] Nov, [facility] [id number] [place] [address] Nov, [facility] [id number] [address] Nov, [facility] [id number] [place] [id number] Oct, [facility] [id number] [place] [address] Oct, [facility] [id number] [place] [address] Oct, [facility] [id number], [place] [address] Oct, [facility] [id number] [place] [address] Oct, [facility] [id number], [place] [address] Oct, [facility] [id number] [place] [address] Oct, [facility] [id number] [place] [address] Oct, [facility] [id number] [place] [address] Sep, IMMUNIZATIONS No Known Immunizations SOCIAL HISTORY Never Assessed REASON FOR VISIT add Tylenol to Tramadol for pain PLAN OF CARE VITAL SIGNS MEDICATIONS Medication Instructions Dosage Frequency Start Date End Date Duration Status Tylenol 325 MG Orally 3 times a day to be given with Tramadol 1 tablet Feb, Active RESULTS No Results PROCEDURES No Known procedures INSTRUCTIONS MEDICATIONS ADMINISTERED No Known Medications MEDICAL (GENERAL) HISTORY Type Description Date 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
--- OUTSIDE RECORDS SUMMARY | 2018-09-04 11:48 | XMS REPORT ---
Author Author SHAHNAZ MARQUEZ [facility] Address [address] [place] [address] Care Team Providers Care Hospice Entrance Attendant Name Role Phone SHAHNAZ MARQUEZ Unavailable PROBLEMS Type Condition ICD9-CM Code IZI46-KK Code Onset Dates Condition Status SNOMED Code Problem Low back pain M54.5 Active 074268266 Problem Ventral hernia without obstruction or gangrene K43.9 Active 478236548 Problem Type 2 diabetes mellitus without complication, without long-term current use of insulin E11.9 Active 673599017 Problem Hypertension I10 Active 58662772 Problem Coronary artery disease I25.10 Active 07991458 Problem Hyperlipidemia E78.5 Active 04067747 Problem Other chronic pain G89.29 Active 62383592 Problem Paroxysmal atrial fibrillation I48.0 Active 990847489 Problem Insomnia G47.00 Active 723663081 Problem Pharyngeal dysphagia R13.13 Active 37816025843115 Problem Reactive depression F32.9 Active 69325838 Problem Peripheral vascular disease I73.9 Active 101629244 Problem Anxiety F41.9 Active 05937536 ALLERGIES No Information ENCOUNTERS Encounter Location Date Diagnosis [facility] [employer] [place] [employer] [address] [place] [id number] May, Anxiety F41.9 ; Type 2 diabetes mellitus without complication, without long-term current use of insulin E11.9 ; Hypertension I10 ; Low back pain M54.5 ; Paroxysmal atrial fibrillation I48.0 and 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 [facility] [address] [facility] [id number] [address] May, Other chronic pain G89.29 Via [facility] [address] [place] [id number] May, Low back pain M54.5 [facility] [address] [id number] [address] May, [facility] [address] [facility] [id number], [place] [address] Apr, Other chronic pain G89.29 [facility] [address] [id number], [place] [address] 4[address] Apr, [facility] [address] [facility] [id number][place] [address] Apr, [facility] [employer] [address] [place] [id number] Apr, Closed compression fracture of L3 lumbar vertebra with routine healing, subsequent encounter S32.030D [facility] [employer] [address] [place] [id number] Apr, Low back pain M54.5 [facility] [employer] [address] [place] [id number] Apr, Coccydynia M53.3 [facility] [address] [facility] [id number] [place] [address]- [address] March, [facility] [address] [facility] [id number] [place] [address]- 0218 March, Other chronic pain G89.29 [facility] [id number] [place] [address] 70178- 6019 March, [facility] [address] [facility] [id number][place] [address] 7696 March, [facility] [address] [facility] [id number], [place] [address]296 Feb, [facility] [address] [facility] [id number], [place] [address] 1775 Feb, Other chronic pain G89.29 [facility] [employer] [address] [place] [id number] Feb, Other chronic pain G89.29 and Anxiety F41.9 [facility] [address] [facility] [id number], [place] [address] Feb, [facility] [address] [id number] [address] Jan, [facility] [address] [id number] [address] 7293 Jan, [facility] [address]00565100[place], [place] [address] Jan, [place] [address] [id number], [place] [address] 4449 Jan, 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 ; Other chronic pain G89.29 ; Anxiety F41.9 ; Reactive depression F32.9 ; Insomnia G47.00 and Type 2 diabetes mellitus without complication, without long-term current use of insulin E11.9 [facility] [address] [id number] [place] [address] Nov [facility] [id number] [address] Nov, Anxiety F41.9 [place] [address] [id number] [address] Nov, [place] [id number][place] [address] Nov, Anxiety F41.9 [facility] [employer] [place] [employer] [address] [facility] [place] [id number] Nov, Status post surgery Z98.890 ; Confused R41.0 ; Anxiety F41.9 and Other chronic pain G89.29 [facility] [id number][place] [address] Nov, Other chronic pain G89.29 [facility] [address] [facility] [id number], [place] [address] 2718 Oct, [place] [id number] [address] Oct, Other chronic pain G89.29 [facility] [address]00565100[place], [place] [address]46 Oct, Anxiety F41.9 [facility] [id number][place] [address] Sep, Other chronic pain G89.29 [facility] [id number] [place] [id number] Sep, [facility] [employer] [address] [place] [id number] Aug, Dysuria R30.0 and Anxiety F41.9 [facility] [address]00565100[place], [place] [address] 2546 Aug, [facility] [id number] [place] [id number] Aug, Other chronic pain G89.29 [facility] [address]00565100[place], [place] [address] Jul, Other chronic pain G89.29 [facility] [id number][place] [address] Jun, [facility] [id number][place] [address] Jun, Other chronic pain G89.29 [facility] [address]00565100[place], [place] [address] 89[address] Jun, [facility] [address] [id number], [place] [address] 8943 May, Other chronic pain G89.29 [facility] [address] [place] [address] 2546 Apr, Other chronic pain G89.29 [facility] [employer] [address] [place] [id number] Apr, Reactive depression F32.9 and Pharyngeal dysphagia R13.13 [facility] [address] [facility] [id number], [place] [address] Apr, Urinary tract infection without hematuria, site unspecified N39.0 [facility] [address] [facility] [id number], [place] [address] March, Other chronic pain G89.29 [facility] [address] [facility] [id number], [place] [address] 98[address] Feb, Other chronic pain G89.29 [facility] [address] [facility] [id number][place] [address] Feb, [facility] [id number] [place] [id number] Feb, [facility] [employer] [address] [place] [id number] Feb, Dysuria R30.0 and Ventral hernia without obstruction or gangrene K43.9 [facility] [address]00565100[place], [place] [address] 7286 Jan, Other chronic pain G89.29 [facility] [id number][place] [address] Dec, Other chronic pain G89.29 [facility] [address] [id number] [address] Nov, Other chronic pain G89.29 [facility] [employer] [address] [place] [id number] Nov, Lymphadenitis I88.9 [facility] [address] [facility] [id number], [place] [address]368 Nov, Other chronic pain G89.29 [facility] [address] [facility] [id number][place] [address] Nov, [facility] [address] [id number] [address] Nov, Other chronic pain G89.29 [facility] [employer] [address] [place] [address] Oct, Low back pain M54.5 ; Hypertension I10 and Type 2 diabetes mellitus without complication, without long-term current use of insulin E11.9 [facility] [id number] [place] [address] 24329- 4578 Oct, [facility] [id number] [place] [address] 15542- 2841 Oct, [facility] [id number] [place] [address] 74316- 9620 Oct, [facility] [id number] [place] [address] 31449- 9282 Oct, [facility] [id number] [place] [address] 25219- 9843 Sep, [facility] [id number] [place] [address] 89788- 1202 Sep, [facility] [id number] [place] [address] 93915- 2041 Aug, Other chronic pain G89.29 [facility] [id number] [place] [address] 29176- 2926 Jul, [facility] [id number] [place] [address] 42404- 8746 Jul, [facility] [address] [place] [address] 59458- 1653 Jul, [facility] [id number] [place] [address] 25801- 2194 Jun, [facility] [address] [place] [address] 15571- 3246 Jun, [facility] [address] [place] [id number] Jun, Low back pain M54.5 ; Other chronic pain G89.29 and Coronary artery disease I25.10 [facility] [address] [place] [address] 77286- 0548 Jun, [facility] [address]00565100[place], [place] [address]- 7736 May, [facility] [address]00565100[place], [place] [address]- 6002 May, [facility] [address]00565100[place], [place] [address]- 7117 May, Other chronic pain G89.29 [facility] [address] [id number], [place] [address]- 3206 May, [facility] [id number] [place] [address] 24037- 6720 Apr, [facility] [id number] [place] [address] 37138- 5334 Apr, Acute cystitis without hematuria N30.00 [facility] [id number] [place] [address] 12784- 6025 16 Apr, 2016 Acute cystitis without hematuria N30.00 ; Coronary artery disease I25.10 ; Low back pain M54.5 and Other chronic pain G89.29 [facility] [address]65100[place], [place] [address]- 2734 Apr, Other chronic pain G89.29 [facility] [address]65100[place], [place] [address]- 9980 March, Other chronic pain G89.29 [facility] [address]00565100[place], [place] [address]- 4285 Feb, [facility] [address]65100[place], [place] [address]- 6020 Feb, Arthritis M19.90 [facility] [address]00565100[place], [place] [address]- 1959 Feb, [facility] [address]00565100[place], [place] [address]- 1577 Jan, [facility] [address]00565100[place], [place] [address]- 9749 Jan, [facility] [id number] [place] [address] 98223- 7030 Jan, Other chronic pain G89.29 [facility] [address] [place] [address] 96940- 4601 Jan, Hypertension I10 ; Coronary artery disease I25.10 and Insomnia G47.00 [facility] [id number] [place] [address] 51348- 1967 Jan, [facility] [id number] [place] [address] 30458- 0329 Dec, Right hip pain M25.551 [facility] [id number] [place] [address] 45645- 0653 Dec, [facility] [id number] [place] [address] 07453- 1462 Dec, [facility] [address] [place] [address] 88376- 1297 Dec, [facility] [id number] [place] [address] 38164- 1302 Dec, Other chronic pain G89.29 [facility] [address]65100[place], [place] [address]- 5286 Dec, [facility] [address]65100[place], [place] [address]- 5389 Nov, [facility] [address]65100[place], [place] [address] 2542 Nov, Other chronic pain G89.29 [facility] [address]65100[place], [place] [address] 2547 Nov, Right hip pain M25.551 and Coronary artery disease I25.10 [facility] [address] [place] [address] 05975- 2110 Nov, Other chronic pain G89.29 [facility] [address] [id number], [place] [address]- 4850 Oct, [facility] [id number] [place] [address] 81596- 7545 Oct, [facility] [id number] [place] [address] 93684- 6180 Sep, [facility] [id number] [place] [address] 76531- 9556 Sep, [facility] [id number] [place] [address] 76515- 3528 Aug, [facility] [id number] [place] [address] 82769- 0317 Aug, Hypertension I10 ; Coronary artery disease I25.10 and Arthritis M19.90 [facility] [id number] [place] [address] 75672- 5168 Jun, [facility] [id number] [place] [address] 03123- 6142 Jun, Essential hypertension, benign 401.1 ; Other chronic pain 338.29 and Chronic airway obstruction, not elsewhere classified 496 [facility] [address]65[address], [place] [address]- 0221 Jun, [facility] [id number] [place] [address] 09207- 3983 Jun, [facility] [address]65100[place], [place] [address]- 4647 Jun, [facility] [id number] [place] [address] 00645- 1219 May, [facility] [address] [id number], [place] [address]- 5721 May, [facility] [id number] [place] [address] 84681- 5040 Apr, [facility] [address] [id number] [place] [address]- 0016 Apr, [facility] [address] [id number] [place] [address]- 0550 Apr, [facility] [address] [id number] [place] 6378 March, [facility] [address] [id number] [place] [address]- 6056 March, [facility] [address] [id number] [place] 1041 March, [facility] [address] [id number] [place] [address]- 1518 March, [facility] [address] [id number] [place]- 0486 March, Sialadenitis 527.2 [facility] [address] [id number] [place] [address]- 0288 Feb, [facility] [address] [id number] [place] [address]- 1578 Feb, [facility] [address] [id number] [place] [address]- 4513 Feb, [facility] [address] [id number] [place] [address]- 0550 Feb, [facility] [address] [id number] [place] [address]- 4420 Feb, [facility] [address] [id number] [place]- 6474 Jan, [facility] [address] [id number] [place] [address]- 4566 Jan, [facility] [address] [id number] [place] [address]- 9583 Jan, [facility] [address] [id number] [place] [address]- 4261 Jan, [facility] [place] [facility] [address] [id number] [place] [address]- 0957 Jan, [facility] [place] [facility] [address] [id number] [place] [address]- 6526 Jan, [facility] [place] [facility] [address] [id number] [place] [address]- 6138 Dec, 2014 [facility] [place] [facility] [address] [id number] [place] [address]- 3624 Dec, 2014 [facility] [place] [facility] [address] [id number] [place] [address]- 1550 Dec, 2014 [facility] [place] [facility] [address] [facility] [id number] [place] [address]- 5674 Dec, 2014 [facility] [place] [facility] [address] [id number] [place] [address]- 5657 Dec, [facility] [place] [facility] [address] [id number] [place] [address]- 5821 Dec, [facility] [place] [facility] [address] [facility] [id number] [place] [address]- 7857 Nov, [facility] [place] [facility] [address] [id number] [place] [address]- 7565 Nov, [facility] [place] [facility] [address] [id number] [place] [address]- 2545 Nov, [facility] [place] [facility] [address] [id number] [place] [address]- 9967 Nov, [facility] [place] [facility] [address] [id number] [place] [address]- 2544 Nov, [facility] [place] [facility] [address] [id number] [place] [address]- 2547 Nov, [facility] [place] [facility] [address] [id number] [place] [address]- 7153 Nov, [facility] [place] [facility] [address] [id number] [place] [address]- 3085 Nov, [facility] [place] [facility] [address] [id number] [place] [address]- 6115 Nov, [facility] [place] [facility] [address] [facility] [id number] [place] [address]- 2849 Nov, [facility] [place] [facility] [address] [id number] [place] [address]- 7303 Nov, [facility] [place] [facility] [address] [id number] [place] [address]- 2875 Nov, [facility] [place] [facility] [address] [id number] [place] [address]- 0906 Nov, [facility] [place] [facility] [address] [id number] [place] [address]- 6766 Nov, [facility] [place] [facility] [address] [id number] [place] [address]- 0733 Oct, [facility] [place] [facility] [address] [id number] [place] [address]- 3351 Oct, [facility] [place] [facility] [address] [id number] [place] [address]- 9108 Oct, [facility] [place] [facility] [address] [id number] [address]- 4757 18 Oct, 2014 [facility] [place] [facility] [address] [id number] [address]- 4429 18 Oct, 2014 [facility] [place] [facility] [address] [id number] [place] [address]- 2361 17 Oct, 2014 [facility] [place] [facility] [address] [id number] [place] [address]- 7168 17 Oct, 2014 [facility] [place] [facility] [address] [id number] [place] [address]- 9721 10 Oct, 2014 [facility] [place] [facility] [address] [id number] [place] [address]- 2599 Oct, [facility] [place] [facility] [address] [id number] [place] [address]- 5572 Sep, [facility] [place] [facility] [address] [id number] [place] [address]- 4582 Sep, [facility] [place] [facility] [address] [id number] [place] [address]- 4568 Sep, [facility] [place] [facility] [address] [id number] [place] [address]- 7431 Sep, [facility] [place] [facility] [address] [id number] [place] [address]- 8357 Sep, [facility] [place] [facility] [address] [id number] [place] [address]- 5102 Sep, [facility] [place] [facility] [address] [id number] [place] [address]- 5771 Sep, [facility] [place] [facility] [address] [id number] [place] [address]- 0216 Sep, [facility] [place] [facility] [address] [id number] [place] [address]- 1552 Sep, [facility] [place] [facility] [address] [facility] [id number] [place] [address]- 6511 Sep, [facility] [place] [facility] [address] [id number] [place] [address]- 6200 Sep, [facility] [place] [facility] [address] [id number] [place] [address]- 1483 Sep, [facility] [place] [facility] [address] [id number] [place] [address]- 7277 Aug, [facility] [place] [facility] [address] [id number] [place] [address]- 6765 Aug, [facility] [place] [facility] [address] [id number] [place] [address]- 9596 Aug, [facility] [place] [facility] [address] [id number] [place] [address]- 7079 29 Aug, 2013 [facility] [place] [facility] [address] [id number] [place] [address] 28 Aug, 2014 [facility] [place] [facility] [address] [id number] [place] [address] 28 Aug, 2014 [facility] [place] [facility] [address] [id number] [place] [address] Aug, [facility] [place] [facility] [address] [id number] [place] [address] 17 Aug, 2013 [facility] [place] [facility] [address] [id number] [place] [address] 30 Jul, 2013 [facility] [place] [facility] [address] [id number] [place] [address] 30 Jul, 2013 [facility] [place] [facility] [address] [id number] [place] [address] 30 Sep, 2013 [facility] [place] [facility] [address] [id number] [place] [address] 30 Sep, 2013 [facility] [place] [facility] [address] [id number] [place] [address] 25 Jul, 2013 [facility] [place] [facility] [address] [id number] [place] [address] 25 Sep, 2013 [facility] [place] [facility] [address] [id number] [address] 15 Sep, 2013 [facility] [place] [facility] [address] [id number] [place] [address] 15 Sep, 2013 [facility] [place] [facility] [address] [id number] [place] [address]- [address] 11 Jul, 2013 [facility] [place] [facility] [address] [id number] [place] [address]- [address] 11 Jul, 2013 [facility] [place] [facility] [address] [id number] [place] [address] Jun, [facility] [place] [facility] [address] [id number] [place] [address] Jun, [facility] [place] [facility] [address] [id number] [place] [address] Jun, [facility] [place] [facility] [address] [id number] [place] [address] Jun, [facility] [place] [facility] [address] [id number] [place] [address] Jun, [facility] [place] [facility] [address] [id number] [place] [address] Jun, [facility] [place] [facility] [address] [id number] [place] [address] Jun, [facility] [place] [facility] [address] [id number] [place] [address] Jun, [facility] [place] [facility] [address] [id number] [place] [address] Jun, [facility] [place] [facility] [address] [id number] [place] [address]- [address] Jun, [facility] [place] [facility] [address] [id number] [place] [address] Jun, [facility] [place] [facility] [address] [id number] [place] [address] Jun, [facility] [place] [facility] [address] [id number] [place] [address]- [address] Jun, [facility] [place] [facility] [address] [id number] [place] [address] Jun, [facility] [place] [facility] [address] [id number] [place] [address] Jun, [facility] [place] [facility] [address] [id number] [place] [address] Jun, [facility] [place] [facility] [address] [id number] [place] [address] Jun, [facility] [place] [facility] [address] [id number] [place] [address] Jun, [facility] [place] [facility] [address] [id number] [place] [address] Jun, [facility] [place] [facility] [address] [id number] [place] [address] Jun, [facility] [place] [facility] [address] [id number] [place] [address] Jun, [facility] [place] [facility] [address] [id number] [place] [address] Jun, [facility] [place] [facility] [address] [id number] [place] [address] May, [facility] [place] [facility] [address] [id number] [place] [address] May, [facility] [place] [facility] [address] [id number] [place] [address] May, [facility] [place] [facility] [address] [id number] [place] [address] May, [facility] [place] [facility] [address] [id number] [place] [address] May, [facility] [place] [facility] [address] [id number] [place] [address] May, [facility] [place] [facility] [address] [id number] [place] [address] May, [facility] [place] [facility] [address] [id number] [place] [address] 8660 May, [facility] [place] [facility] [address] [id number] [place] [address] 5380 May, [facility] [place] [facility] [address] [id number] [place] [address] 9153 May, [facility] [place] [facility] [address] [id number] [place] [address] 0627 May, [facility] [place] [facility] [address] [id number] [place] [address]- 5234 May, [facility] [place] [facility] [address] [id number] [place] [address]- 9208 May, [facility] [place] [facility] [address] [id number] [place] [address]- 9582 Apr, [facility] [place] [facility] [address] [id number] [place] [address]148 Apr, [facility] [place] [facility] [address] [id number] [place] [address] 1943 Apr, [facility] [place] [facility] [address] [id number] [place] [address]- 8595 Apr, [facility] [place] [facility] [address] [id number] [place] [address]- 9324 Apr, [facility] [place] [facility] [address] [id number] [place] [address]- 4149 Apr, [facility] [place] [facility] [address] [id number] [place] [address]- 0693 Apr, [facility] [place] [facility] [address] [id number] [place] [address]- 1386 Apr, [facility] [place] [facility] [address] [id number] [place] [address]- 8076 Apr, [facility] [place] [facility] [address] [id number] [place] [address]- 2047 March, [facility] [place] [facility] [address] [id number] [place] [address]- 3186 March, [facility] [place] [facility] [address] [id number] [place] [address]- 0702 March, [facility] [place] [facility] [address] [id number] [place] [address]- 0799 March, [facility] [address] [id number] [place] [address] 2994 March, [facility] [address] [id number] [place] [address] 9463 March, [facility] [address] [id number] [place] [address]- 0206 March, [facility] [place] [facility] [address] [id number] [place] [address]- 2807 March, [facility] [address] [id number] [place] [address] March, [facility] [address] [id number] [place] [address]- 3626 March, [facility] [address] [id number] [place] [address]- 3043 March, [facility] [address] [id number] [place] [address]- 1525 March, [facility] [address] [id number] [place] [address]- 5502 March, [facility] [address] [id number] [place] [address]- 4668 March, [facility] [address] [id number] [place] [address]- 2821 March, [facility] [place] [facility] [address] [id number] [place] [address]- 7985 March, [facility] [place] [facility] [address] [id number] [place] [address]- 9058 March, [facility] [place] [facility] [address] [id number] [place] [address]- 6088 March, [facility] [place] [facility] [address] [id number] [place] [address] March, [facility] [place] [facility] [address] [id number] [place] [address]- 8639 March, [facility] [place] [facility] [address] [id number] [place] [address]- 0447 Feb, [facility] [place] [facility] [address] [id number] [place] [address]- 8306 Feb, [facility] [place] [facility] [address] [id number] [place] [address]- 8464 Feb, [facility] [place] [facility] [address] [id number] [place] [address]- 0487 Feb, [facility] [place] [facility] [address] [id number] [place] [address]- 5698 Feb, [facility] [place] [facility] [address] [id number] [place] [address]- 8331 Feb, [facility] [place] [facility] [address] [id number] [place] [address]- 4673 Feb, [facility] [place] [facility] [address] [id number] [place] [address]- 1311 Feb, [facility] [place] [facility] [address] [id number] [place] [address]- 4776 Jan, [facility] [place] [facility] [address] [id number] [place] [address]- 3927 Jan, [facility] [place] [facility] [address] [id number] [place] [address]- 9526 24 Jan, 2014 [facility] [place] [facility] [address] [id number] [place] [address]- 8753 24 Jan, 2014 [facility] [place] [facility] [address] [id number] [place] [address]- 1850 13 Jan, 2014 [facility] [place] [facility] [address] [id number] [place] [address] 13 Jan, 2014 [facility] [place] [facility] [address] [id number] [place] [address]- 7873 Jan, [facility] [place] [facility] [address] [id number] [place] [address]- 4133 Jan, [facility] [place] [facility] [address] [id number] [place] [address]- 0365 Jan, [facility] [place] [facility] [address] [facility] [id number] [place] [address]- 3327 Jan, [facility] [place] [facility] [address] [id number] [place] [address]- 1984 Dec, [facility] [place] [facility] [address] [id number] [place] [address]- 7142 Dec, [facility] [place] [facility] [address] [facility] [id number] [place] [address]- 5100 Dec, [facility] [place] [facility] [address] [facility] [id number] [place] [address]- 8780 Dec, [facility] [place] [facility] [address] [id number] [place] [address]- 2570 Dec, [facility] [place] [facility] [address] [facility] [id number] [place] [address]- 2148 Dec, [facility] [place] [facility] [address] [facility] [id number] [place] [address]- 9504 Dec, [facility] [place] [facility] [address] [id number] [place] [address]- 6880 Dec, [facility] [place] [facility] [address] [facility] [id number] [address]- 7183 Nov, [facility] [place] [facility] [address] [id number] [place] [address]- 1373 Nov, [facility] [place] [facility] [address] [facility] [id number] [place] [address]- 0148 Nov, [facility] [place] [facility] [address] [facility] [id number] [place] [address]- 9721 Nov, [facility] [place] [facility] [address] [id number] [place] [address]- 3227 Nov, [facility] [place] [facility] [address] [id number] [place] [address]- 7288 Nov, [facility] [place] [facility] [address] [id number] [place] [address]- 8453 Nov, [facility] [place] [facility] [address] [id number] [place] [address]- 7030 Nov, [facility] [place] [facility] [address] [id number] [place] [address]- 9493 Nov, [facility] [place] [facility] [address] [id number] [place] [address]- 2544 Nov, [facility] [place] [facility] [address] [id number] [place] [address]- 0232 Nov, [facility] [place] [facility] [address] [id number] [place] [address]- 7832 Nov, [facility] [place] [facility] [address] [id number] [place] [address]- 4607 Nov, [facility] [place] [facility] [address] [id number] [place] [address]- 4665 Oct, [facility] [place] [facility] [address] [id number] [place] [address]- 6236 Oct, [facility] [place] [facility] [address] [id number] [place] [address]- 4094 Oct, [facility] [place] [facility] [address] [id number] [place] [address]- 3714 Oct, [facility] [place] [facility] [address] [id number] [place] [address]- 0568 Oct, [facility] [place] [facility] [address] [id number] [place] 2007 Oct, [facility] [place] [facility] [address] [id number] [place] [address]- 2297 18 Oct, 2013 [facility] [address] [id number] [place] [address]- 5340 18 Oct, 2013 [facility] [place] [facility] [address] [id number] [place] [address]- 8825 17 Oct, 2013 [facility] [place] [facility] [address] [facility] [id number] [place] [address]- 3096 17 Oct, 2013 [facility] [place] [facility] [address] [id number] [place] [address]- 7485 Oct, [facility] [place] [facility] [address] [id number] [place] [address]- 3465 Oct, [facility] [place] [facility] [address] [id number] [place] [address]- 7351 Oct, [facility] [place] [facility] [address] [facility] [id number] [place] [address]- 5557 Oct, [facility] [place] [facility] [address] [id number][place] [address]- 4625 14 Sep, 2013 [facility] [place] [facility] [address] [id number][place] [address]- 4034 14 Sep, 2013 [facility] [place] [facility] [address] [id number], [place] [address]- 2708 05 Sep, 2013 [facility] [place] [facility] [address] [id number][place] [address]- 9211 05 Sep, 2013 [facility] [place] [facility] [address] [id number][place] [address]- 8691 Sep, [facility] [place] [facility] [address] [id number], [place] [address]- 6853 Sep, [facility] [place] [facility] [address] [id number], [place] [address]- 5211 Sep, [facility] [place] [facility] [address] [facility] [id number][place] [address]- 1229 Sep, [facility] [place] [facility] [address] [id number] [place] [address]- 3674 Sep, [facility] [place] [facility] [address] [id number] [place] [address]- 2019 Sep, [facility] [place] [facility] [address] [id number] [place] [address]- 8336 Aug, [facility] [place] [facility] [address] [id number] [place] [address]- 9452 Aug, [facility] [place] [facility] [address] [id number] [place] [address]- 0127 Aug, [facility] [place] [facility] [address] [id number] [place] [address]- 2394 Aug, [facility] [place] [facility] [address] [id number] [place] [address]- 8486 Aug, [facility] [place] [facility] [address] [id number] [place] [address]- 4196 Aug, [facility] [place] [facility] [address] [id number] [place] [address]- 8785 Aug, [facility] [place] [facility] [address] [id number] [place] [address]- 9693 Aug, [facility] [place] [facility] [address] [id number] [place] [address]- 9779 Aug, [facility] [place] [facility] [address] [id number] [place] [address]- 1798 Aug, [facility] [place] [facility] [address] [id number], [place] [address]- 7577 Aug, [facility] [place] [facility] [address] [id number] [place] [address]- 9757 Aug, [facility] [place] [facility] [address] [id number] [place] [address]- 0934 Aug, [facility] [place] [facility] [address] [id number] [place] [address]- 9219 Aug, [facility] [place] [facility] [address] [id number] [place] [address]- 2674 17 Aug, 2013 [facility] [place] [facility] [address] [id number] [place] [address]- 6156 14 Aug, 2013 [facility] [place] [facility] [address] [id number] [place] [address]- 7097 14 Aug, 2013 [facility] [place] [facility] [address] [id number] [place] [address]- 6186 Aug, [facility] [place] [facility] [address] [id number] [place] [address]- 7257 20 Jul, 2013 [facility] [place] [facility] [address] [id number] [place] [address]- 9346 19 Jul, 2013 [facility] [address] [id number] [place] [address]- 6548 18 Jul, 2013 [facility] [place] [facility] [address] [id number] [place] [address]- 7498 11 Jul, 2013 [facility] [place] [facility] [address] [id number] [place] [address]- 1315 Jul, [facility] [place] [facility] [address] [id number] [place] [address]- 8307 28 Jun, 2013 [facility] [place] [facility] [address] [id number] [place] [address]- 0868 Jun, [facility] [place] [facility] [address] [id number] [place] [address]- 6074 Jun, [facility] [place] [facility] [address] [id number] [place] [address]- 4442 15 Jun, 2013 [facility] [place] [facility] [address] [id number] [place] [address]- 8789 14 Jun, 2013 [facility] [place] [facility] [address] [id number] [place] [address]- 4539 Jun, [facility] [place] [facility] [address] [id number] [place] [address]- 0381 Jun, [facility] [place] [facility] [address] [id number] [place] [address]- 6659 Jun, [facility] [place] [facility] [address] [id number] [place]41 Jun, [facility] [place] [facility] [address] [id number] [place] [address]- 2471 Jun, [facility] [place] [facility] [address] [id number] [place] [address]- 1166 May, [facility] [place] [facility] [address] [id number] [place] [address]- 2619 May, [facility] [place] [facility] [address] [id number] [place] [address]- 2410 May, [facility] [place] [facility] [address] [id number] [place] [address]- 7252 May, [facility] [place] [facility] [address] [id number] [place] [address]- 2549 May, [facility] [place] [facility] [address] [id number] [place] [address]- 7977 May, [facility] [place] [facility] [address] [id number] [place] [address]- 5064 May, [facility] [place] [facility] [address] [id number] [place] [address]- 4947 May, [facility] [place] [facility] [address] [id number] [place] [address]- 7038 May, [facility] [place] [facility] [address] [id number] [place] [address]- 7122 Apr, [facility] [place] [facility] [address] [id number] [place] [address]- 8617 Apr, [facility] [place] [facility] [address] [id number] [place] [address]- 2714 Apr, [facility] [place] [facility] [address] [id number] [place] [address]- 6727 Apr, [facility] [address] [id number] [place] [address]- 9914 Apr, [facility] [address] [id number] [place] [address]- 7918 Apr, [facility] [address] [id number] [place] [address]- 6947 Apr, [facility] [address] [id number] [place] [address]- 2098 March, [facility] [address] [id number] [place] [address]- 8376 Feb, [facility] [address] [id number] [place] [address]- 1502 Feb, [facility] [address] [id number] [place] [address]- 4288 Feb, [facility] [address] [id number] [place] [address]- 7698 Jan, [facility] [address] [id number] [place] [address]- 6736 Jan, [facility] [address] [id number] [place] [address]- 6560 Jan, [facility] [address] [id number] [place] [address]- 9878 14 Jan, 2013 [facility] [address] [id number] [place] [address]- 8069 12 Jan, 2013 [facility] [address] [id number] [place] [address]- 8793 08 Jan, 2013 [facility] [address] [id number] [place] [address]- 4156 07 Jan, 2013 [facility] [address] [id number] [place] [address]- 1006 Jan, [facility] [address] [id number] [place] [address]- 0269 28 Dec, 2012 [facility] [place] [facility] [address] [id number] [place] [address]- 9806 25 Dec, 2012 [facility] [place] [facility] [address] [id number] [place] [address]- 3066 13 Dec, 2012 [facility] [place] [facility] [address] [id number] [place] [address]- 7225 11 Dec, 2012 [facility] [place] [facility] [address] [id number] [place] [address]- 6210 07 Dec, 2012 [facility] [place] [facility] [address] [id number] [place] [address]- 4654 06 Dec, 2012 [facility] [place] [facility] [address] [id number] [place] [address]- 7268 05 Dec, 2012 [facility] [place] [facility] [address] [id number] [place] [address]- 4623 Nov, [facility] [place] [facility] [address] [id number] [place] [address]- 2545 Nov, [facility] [place] [facility] [address] [id number] [place] [address]- 7972 Nov, [facility] [place] [facility] [address] [id number] [place] [address]- 0825 Nov, [facility] [place] [facility] [address] [id number] [place] [address]- 0840 10 Nov, 2012 [facility] [place] [facility] [address] [id number] [place] [address]- 2112 Nov, [facility] [place] [facility] [address] [id number] [place] [address]- 2921 Nov, [facility] [place] [facility] [address] [id number] [place] [address]- 8442 Oct, [facility] [place] [facility] [address] [id number] [place] [address]- 2522 Oct, [facility] [address] [id number] [place] [address]- 2288 Oct, [facility] [place] [facility] [address] [id number] [place] [address]- 2716 Oct, [facility] [address] [id number] [place] [address]- 3706 Oct, [facility] [address] [id number] [place] [address]- 6629 Oct, [facility] [address] [id number] [place] [address]- 1349 Oct, [facility] [address] [id number] [place] [address]- 8511 Oct, [facility] [address] [id number] [place] [address]- 5140 Oct, [facility] [address] [id number] [place] [address]- 6627 Oct, [facility] [address] [id number] [place] [address]- 2074 Oct, [facility] [address] [id number] [place] [address]- 2656 Oct, [facility] [place] [facility] [address] [id number] [place] [address]- 3674 Sep, [facility] [address] [id number] [place] [address]- 8555 Sep, [facility] [place] [facility] [address] [id number] [place] [address]- 9564 Sep, [facility] [place] [facility] [address] [id number] [place] [address]- 1826 Sep, [facility] [place] [facility] [address] [id number] [place] [address]- 3751 Sep, [facility] [place] [facility] [address] [id number] [place] [address] Sep, [facility] [place] [facility] [address] [id number] [place] [address] Sep, [facility] [place] [facility] [address] [id number] [place] [address] Sep, [facility] [place] [facility] [address] [id number] [place] [address] Sep, [facility] [place] [facility] [address] [id number] [place] [address] Sep, [facility] [place] [facility] [address] [id number] [place] [address] Sep, [facility] [place] [facility] [address] [id number] [place] [address] Aug, [facility] [place] [facility] [address] [id number], [place] [address] Aug, [facility] [place] [facility] [address] [id number][place] [address] Aug, [facility] [place] [facility] [address] [facility] [id number][place] [address] Aug, [facility] [place] [facility] [address] [facility] [id number][place] [address] Aug, [facility] [place] [facility] [address] [id number][place] [address] Aug, [facility] [place] [facility] [address] [id number], [place] [address] Aug, [facility] [place] [facility] [address] [id number], [place] [address] Aug, [facility] [place] [facility] [address] [facility] [id number][place] [address]84 Aug, [facility] [place] [facility] [address] [id number], [place] [address] Aug, [facility] [place] [facility] [address] [id number] [place] [address] Jul, [facility] [place] [facility] [address] [id number] [place] [address] Jul, [facility] [place] [facility] [address] [id number] [place] [address] Jul, [facility] [place] [facility] [address] [id number] [place] [address] Jul, [facility] [place] [facility] [address] [id number] [place] [address] Jun, [facility] [place] [facility] [address] [id number] [place] [address]- [address]6 Jun, [facility] [place] [facility] [address] [id number] [place] [address]- [address] Jun, [facility] [place] [facility] [address] [id number] [place] [address] Jun, [facility] [place] [facility] [address] [id number] [place] [address] Jun, [facility] [place] [facility] [address] [id number] [place] [address]124 Jun, [facility] [place] [facility] [address] [id number] [place] [address] 0847 Jun, [facility] [place] [facility] [address] [id number] [place] [address]- 45[address] May, [facility] [place] [facility] [address] [id number] [place] [address]149 May, [facility] [place] [facility] [address] [id number] [place] [address]- 1082 May, [facility] [place] [facility] [address] [id number] [place] [address]- [address]286 May, [facility] [place] [facility] [address] [id number] [place] [address] 8840 May, [facility] [place] [facility] [address] [id number] [place] [address]- 2455 Apr, [facility] [place] [facility] [address] [id number] [place] [address]- [address] Apr, [facility] [place] [facility] [address] [id number] [place] [address]- 7633 Apr, [facility] [place] [facility] [address] [id number] [place] [address]- 1724 Apr, [facility] [place] [facility] [address] [id number] [place] [address]- [address]703 Apr, [facility] [place] [facility] [address] [id number] [place] [address] March, [facility] [place] [facility] [address] [id number] [place] [address]- 2310 March, [facility] [place] [facility] [address] [id number] [place] [address] 95[address] March, [facility] [place] [facility] [address] [id number] [place] [address]- [address] March, [facility] [place] [facility] [address] [id number] [place] [address] March, [facility] [place] [facility] [address] [id number] [place] [address]- 93[address] March, [facility] [place] [facility] [address] [id number] [place] [address]- [address] March, [facility] [place] [facility] [address] [id number] [place] [address] 3416 March, [facility] [place] [facility] [address] [id number] [place] [address] 6416 March, [facility] [place] [facility] [address] [id number] [place] [address] March, [facility] [address] [id number] [place] [address]- [address] 30 Feb, 2012 [facility] [place] [facility] [address] [id number] [place] [address]- [address] Feb, [facility] [place] [facility] [address] [id number] [place] [address]- [address] Feb, [facility] [place] [facility] [address] [id number] [place] [address]- 5957 Feb, [facility] [place] [facility] [address] [id number] [place] [address]- 7732 Feb, [facility] [place] [facility] [address] [id number] [place] [address]- 7673 Feb, [facility] [place] [facility] [address] [id number] [place] [address]- 2758 Feb, [facility] [place] [facility] [address] [id number] [place] [address]- 4433 Feb, [facility] [place] [facility] [address] [id number] [place] [address]- 4923 Feb, [facility] [place] [facility] [address] [id number] [place] [address]99 Jan, [facility] [place] [facility] [address] [id number] [place] [address]- 6787 Jan, [facility] [place] [facility] [address] [id number], [place] [address] Jan, [facility] [place] [facility] [address] [id number] [place] [address]- 1089 Jan, [facility] [place] [facility] [address] [id number] [place] [address]- 3932 Dec, [facility] [place] [facility] [address] [id number] [place] [address]- 6615 Dec, [facility] [place] [facility] [id number] [address] Nov, [facility] [id number], [place] [address] Nov, [facility] [id number], [place] [address] Nov, [facility] [id number] [place] [address]- 4950 Nov, [facility] [id number] [place] [address]- 9733 Nov, [facility] [id number] [place] [address] 740966- 7760 Oct, [facility] [id number] [place] [address]- 5821 Oct, [facility] [id number] [place] [address]- 8160 Oct, [facility] [address] [id number] [address] Oct, [facility] [id number] [place] [id number] Oct, [facility] [id number] [address] Oct, [facility] [id number] [address] Oct, [facility] [id number] [address] Oct, [facility] [id number] [address] Sep, IMMUNIZATIONS No Known Immunizations SOCIAL HISTORY [...]
[2018-09-04] MEDS ORDERED: NS IV 1000 ML 1,000 ML IV SCH (11:49)
--- OUTSIDE RECORDS SUMMARY | 2018-09-04 11:49 | XMS REPORT ---
Author Author SHAHNAZ MARQUEZ [facility] Address [address] [place] [address] Care Team Providers Care Part Time Name Role Phone SHAHNAZ MARQUEZ Unavailable PROBLEMS Type Condition ICD9-CM Code ODS28-VX Code Onset Dates Condition Status SNOMED Code Problem Low back pain M54.5 Active 932509912 Problem Ventral hernia without obstruction or gangrene K43.9 Active 080698838 Problem Type 2 diabetes mellitus without complication, without long-term current use of insulin E11.9 Active 811544265 Problem Hypertension I10 Active 06636939 Problem Coronary artery disease I25.10 Active 00751014 Problem Hyperlipidemia E78.5 Active 50247863 Problem Other chronic pain G89.29 Active 46773431 Problem Paroxysmal atrial fibrillation I48.0 Active 536438209 Problem Insomnia G47.00 Active 888948336 Problem Pharyngeal dysphagia R13.13 Active [id number] Problem Reactive depression F32.9 Active 39723683 Problem Peripheral vascular disease I73.9 Active 599384646 Problem Anxiety F41.9 Active 01079809 ALLERGIES No Information ENCOUNTERS Encounter Location Date Diagnosis Via [facility] [address] [place] [id number] May, Anxiety F41.9 ; Type 2 diabetes mellitus without complication, without long-term current use of insulin E11.9 ; Hypertension I10 ; Low back pain M54.5 ; Paroxysmal atrial fibrillation I48.0 and 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 [facility] [address] [facility] [id number] [address] May, Other chronic pain G89.29 Via [facility] [address] [place] [id number] May, Low back pain M54.5 [facility] [address] [id number] [address] May, [facility] [address] [facility] [id number] [place] [address] 16[address] Apr, Other chronic pain G89.29 [facility] [address] [id number] [address] 99[address] Apr, [facility] [address] [facility] [id number] [place] [address] Apr, Via [employer] [address] [place] [id number] Apr, Closed compression fracture of L3 lumbar vertebra with routine healing, subsequent encounter S32.030D [facility] [employer] [address] [place] [id number] Apr, Low back pain M54.5 [facility] [employer] [address] [place] [id number] Apr, Coccydynia M53.3 [facility] [address] [facility] [id number] [place] [address]- 3930 March, [facility] [address] [facility] [id number] [place] [address]1790- 2481 March, Other chronic pain G89.29 [facility] [id number] [place] [address] 61654- 0218 March, [facility] [address] [facility] [id number] [place] [address]365 March, [facility] [address] [facility] [id number] [place] [address] 2911 Feb, [facility] [address] [facility] [id number] [place] [address] 7921 Feb, Other chronic pain G89.29 [facility] [employer] [address] [place] [id number] Feb, Other chronic pain G89.29 and Anxiety F41.9 [facility] [address] [facility] [id number] [place] [address] 39[address] Feb, [facility] [address] [id number] [address] Jan, [facility] [address] [id number] [address] 9866 Jan, [facility] [address]00565100[place] [address] 5510 Jan, [place] [address] [id number] [address] 5525 Jan, [facility] [address] [id number] [address] Dec, [facility] [address] [place] [id number] Dec, Peripheral vascular disease I73.9 ; 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 ; Other chronic pain G89.29 ; Anxiety F41.9 ; Reactive depression F32.9 ; Insomnia G47.00 and Type 2 diabetes mellitus without complication, without long-term current use of insulin E11.9 [facility] [address] [id number] [place] [address] Nov [facility] [id number] [place] [id number] Nov, Anxiety F41.9 [place] [address] [id number] [address] Nov, [place] [id number] [place] [id number] Nov, Anxiety F41.9 [facility] [place] [facility] [address] [facility] [place] [id number] Nov, Status post surgery Z98.890 ; Confused R41.0 ; Anxiety F41.9 and Other chronic pain G89.29 [facility] [id number] [place] [address] Nov, Other chronic pain G89.29 [facility] [address] [facility] [id number] [place] [address] 9[address] Oct, [place] [id number] [place] [address] Oct, Other chronic pain G89.29 [facility] [address]00565100[place] [address] 2546 Oct, Anxiety F41.9 [facility] [id number] [place] [address] Sep, Other chronic pain G89.29 [facility] [id number] [place] [id number] Sep, Via [employer] [address] [place] [id number] Aug, Dysuria R30.0 and Anxiety F41.9 [facility] [address]00565100[place] [address] 2546 Aug, [facility] [id number] [place] [id number] Aug, Other chronic pain G89.29 [facility] [address]00565100[place] [address] 1697 Jul, Other chronic pain G89.29 [facility] [id number] [place] [address] Jun, [facility] [id number] [place]ILL[place] [address] Jun, Other chronic pain G89.29 [facility] [address]00565100[place] [address] 3166 Jun, [facility] [address] [id number] [address] 3592 May, Other chronic pain G89.29 [facility] [address] [place] [address]239 2546 Apr, Other chronic pain G89.29 [facility] [employer] [address] [place] [id number] Apr, Reactive depression F32.9 and Pharyngeal dysphagia R13.13 [facility] [address] [facility] [id number] [place] [address] Apr, Urinary tract infection without hematuria, site unspecified N39.0 [facility] [address] [facility] [id number] [place] [address] March, Other chronic pain G89.29 [facility] [address] [facility] [id number] [address] 7841 Feb, Other chronic pain G89.29 [facility] [address] [facility] [id number] [address] 8062 Feb, [facility] [id number] [place] [id number] Feb, [facility] [employer] [address] [place] [id number] Feb, Dysuria R30.0 and Ventral hernia without obstruction or gangrene K43.9 [facility] [address]00565100[place] [address]- 2978 Jan, Other chronic pain G89.29 [facility] [id number] [place] [id number] Dec, Other chronic pain G89.29 [facility] [address] [id number] [address]- 9496 Nov, Other chronic pain G89.29 [facility] [employer] [address] [place] [id number] Nov, Lymphadenitis I88.9 [facility] [address] [facility] [id number] [place] [address] 9235 Nov, Other chronic pain G89.29 [facility] [address] [facility] [id number] [place] [address] Nov, [facility] [address] [id number] [id number] Nov, Other chronic pain G89.29 [facility] [employer] [address] [place] [id number] Oct, Low back pain M54.5 ; Hypertension I10 and Type 2 diabetes mellitus without complication, without long-term current use of insulin E11.9 [facility] [id number] [place] [address] 69762- 5470 Oct, [facility] [id number] [place] [address] 51055- 0606 Oct, [facility] [id number] [place] [address] 03364- 5229 Oct, [facility] [id number] [place] [address] 28904- 1293 Oct, [facility] [id number] [place] [address] 43957- 5406 Sep, [facility] [id number] [place] [address] 05351- 1811 Sep, [facility] [id number] [place] [address] 34512- 8291 Aug, Other chronic pain G89.29 [facility] [id number] [place] [address] 61425- 4748 Jul, [facility] [id number] [place] [address] 69384- 9195 Jul, [facility] [address] [place] [address] 75769- 1417 Jul, [facility] [id number] [place] [address] 84415- 5760 Jun, [facility] [address] [place] [address] 01170- 5883 Jun, [facility] [address] [place] [id number] Jun, Low back pain M54.5 ; Other chronic pain G89.29 and Coronary artery disease I25.10 [facility] [address] [place] [address] 41094- 9303 Jun, [facility] [address]00565100[place] [address]- 6790 May, [facility] [address]00565100[place] [address]- 3821 May, [facility] [address]00565100[place] [address]- 7857 May, Other chronic pain G89.29 [facility] [address] [id number] [address]- 8646 May, [facility] [id number] [place] [address] 82170- 6205 Apr, [facility] [id number] [place] [address] 59784- 9470 Apr, Acute cystitis without hematuria N30.00 [facility] [id number] [place] [address] 01892- 2565 16 Apr, 2016 Acute cystitis without hematuria N30.00 ; Coronary artery disease I25.10 ; Low back pain M54.5 and Other chronic pain G89.29 [facility] [address]00565100[place] [address]- 2903 Apr, Other chronic pain G89.29 [facility] [address]00565100[place] [address]- 7580 March, Other chronic pain G89.29 [facility] [address]00565100[place] [address]- 0019 Feb, [facility] [address]00565100[place] [address]- 5123 Feb, Arthritis M19.90 [facility] [address]00565100[place] [address]- 0012 Feb, [facility] [address]00565100[place] [address]- 1867 Jan, [facility] [address]00565100[place] [address]- 5084 Jan, [facility] [id number] [place] [address] 99070- 8527 Jan, Other chronic pain G89.29 [facility] [address] [place] [address] 44490- 6559 Jan, Hypertension I10 ; Coronary artery disease I25.10 and Insomnia G47.00 [facility] [id number] [place] [address] 11359- 5886 Jan, [facility] [id number] [place] [address] 51492- 5543 Dec, Right hip pain M25.551 [facility] [id number] [place] [address] 44160- 9291 Dec, [facility] [id number] [place] [address] 06851- 3336 Dec, [facility] [address] [place] [address] 53951- 3417 Dec, [facility] [id number] [place] [address] 78279- 1131 Dec, Other chronic pain G89.29 [facility] [address]00565100[place] [address]- 3996 Dec, [facility] [address]00565100[place] [address]- 0996 Nov, [facility] [address]00565100[place] [address] 2541 Nov, Other chronic pain G89.29 [facility] [address]00565100[place] [address] 2540 Nov, Right hip pain M25.551 and Coronary artery disease I25.10 [facility] [address] [place] [address] 53730- 6330 Nov, Other chronic pain G89.29 [facility] [address] 2080865100[place] [address]- 7741 Oct, [facility] [id number] [place] [address] 21692- 3893 Oct, [facility] [id number] [place] [address] 28404- 8420 Sep, [facility] [id number] [place] [address] 15099- 8358 Sep, [facility] [id number] [place] [address] 13982- 9564 Aug, [facility] [id number] [place] [address] 57090- 6176 Aug, Hypertension I10 ; Coronary artery disease I25.10 and Arthritis M19.90 [facility] [id number] [place] [address] 96108- 4487 Jun, [facility] [address] [place] [address] 82130- 2245 Jun, Essential hypertension, benign 401.1 ; Other chronic pain 338.29 and Chronic airway obstruction, not elsewhere classified 496 [facility] [address]00565100[place] [address]- 8038 Jun, [facility] [id number] [place] [address] 98225- 2629 Jun, [facility] [address]00565100[place] [address]- 2196 Jun, [facility] [id number] [place] [address] 81393- 1433 May, [facility] [address] 2080865100[place] [address]- 8184 May, [facility] [id number] [place] [address] 55511- 8190 Apr, [facility] [address] [id number] [place] [address]- 3463 Apr, [facility] [address] [id number] [place] [address]- 0403 Apr, [facility] [address] [id number] [place] 4109 March, [facility] [address] [id number] [place] [address]- 2679 March, [facility] [address] [id number] [place] 2403 March, [facility] [address] [id number] [place] [address]- 1185 March, [facility] [address] [id number] [place] 9340 March, Sialadenitis 527.2 [facility] [address] [id number] [place] [address]- 0905 Feb, [facility] [address] [id number] [place] [address]- 9800 Feb, [facility] [address] [id number] [place] [address]- 3755 Feb, [facility] [address] [id number] [place] [address]- 0891 Feb, [facility] [address] [id number] [place] [address]- 1832 Feb, [facility] [address] [id number] [place] 5546 Jan, [facility] [address] [id number] [place] [address]- 3424 Jan, [facility] [address] [id number] [place] [address]- 0717 Jan, [facility] [address] [id number] [place] [address]- 0035 Jan, [facility] [place] [facility] [address] [id number] [place] [address]- 6164 Jan, [facility] [place] [facility] [address] [id number] [place] [address]- 9686 Jan, [facility] [place] [facility] [address] [id number] [place] [address]- 6202 Dec, 2014 [facility] [place] [facility] [address] [id number] [place] [address]- 0618 Dec, 2014 [facility] [place] [facility] [address] [id number] [place] [address]- 5362 Dec, 2014 [facility] [place] [facility] [address] [facility] [id number] [place] [address]- 7767 Dec, 2014 [facility] [place] [facility] [address] [id number] [place] [address]- 4525 Dec, [facility] [place] [facility] [address] [id number] [place] [address]- 0847 Dec, [facility] [place] [facility] [address] [facility] [id number] [place] [address]- 2279 Nov, [facility] [place] [facility] [address] [id number] [place] [address]- 2032 Nov, [facility] [place] [facility] [address] [id number] [place] [address]- 2545 Nov, [facility] [place] [facility] [address] [id number] [place] [address]- 6763 Nov, [facility] [place] [facility] [address] [id number] [place] [address]- 2544 Nov, [facility] [place] [facility] [address] [id number] [place] [address]- 2544 Nov, [facility] [place] [facility] [address] [id number] [place] [address]- 8143 Nov, [facility] [place] [facility] [address] [id number] [place] [address]- 2387 Nov, [facility] [place] [facility] [address] [id number] [place] [address]- 9240 Nov, [facility] [place] [facility] [address] [facility] [id number] [place] [address]- 4958 Nov, [facility] [place] [facility] [address] [id number] [place] [address]- 5027 Nov, [facility] [place] [facility] [address] [id number] [place] [address]- 0281 Nov, [facility] [place] [facility] [address] [id number] [place] [address]- 0769 Nov, [facility] [place] [facility] [address] [id number] [place] [address]- 2129 Nov, [facility] [place] [facility] [address] [id number] [place] [address]- 2144 Oct, [facility] [place] [facility] [address] [id number] [place] [address]- 6260 Oct, [facility] [place] [facility] [address] [id number] [place] [address]- 8749 Oct, [facility] [place] [facility] [address] [id number] [address]- 1164 18 Oct, 2014 [facility] [place] [facility] [address] [id number] [address]- 8795 18 Oct, 2014 [facility] [place] [facility] [address] [id number] [place] [address]- 7663 17 Oct, 2014 [facility] [place] [facility] [address] [id number] [place] [address]- 3847 17 Oct, 2014 [facility] [place] [facility] [address] [id number] [place] [address]- 6699 10 Oct, 2014 [facility] [place] [facility] [address] [id number] [place] [address]- 3702 Oct, [facility] [place] [facility] [address] [id number] [place] [address]- 2642 Sep, [facility] [place] [facility] [address] [id number] [place] [address]- 9918 Sep, [facility] [place] [facility] [address] [id number] [place] [address]- 6933 Sep, [facility] [place] [facility] [address] [id number] [place] [address]- 6389 Sep, [facility] [place] [facility] [address] [id number] [place] [address]- 7315 Sep, [facility] [place] [facility] [address] [id number] [place] [address]- 7405 Sep, [facility] [place] [facility] [address] [id number] [place] [address]- 2922 Sep, [facility] [place] [facility] [address] [id number] [place] [address]- 5357 Sep, [facility] [place] [facility] [address] [id number] [place] [address]- 4176 Sep, [facility] [place] [facility] [address] [facility] [id number] [place] [address]- 3407 Sep, [facility] [place] [facility] [address] [id number] [place] [address]- 0937 Sep, [facility] [place] [facility] [address] [id number] [place] [address] Sep, [facility] [place] [facility] [address] [id number] [place] [address] Aug, [facility] [place] [facility] [address] [id number] [place] [address] Aug, [facility] [place] [facility] [address] [id number] [place] [address] Aug, [facility] [place] [facility] [address] [id number] [place] [address] 29 Aug, 2013 [facility] [place] [facility] [address] [id number] [place] [address] 28 Aug, 2014 [facility] [place] [facility] [address] [id number] [place] [address] 28 Aug, 2014 [facility] [place] [facility] [address] [id number] [place] [address] Aug, [facility] [place] [facility] [address] [id number] [place] [address] 17 Aug, 2013 [facility] [place] [facility] [address] [id number] [place] [address] 30 Jul, 2013 [facility] [place] [facility] [address] [id number] [place] [address] 30 Jul, 2013 [facility] [place] [facility] [address] [id number] [place] [address] 30 Sep, 2013 [facility] [place] [facility] [address] [id number] [place] [address] 30 Sep, 2013 [facility] [place] [facility] [address] [id number] [place] [address] 25 Jul, 2013 [facility] [place] [facility] [address] [id number] [place] [address] 25 Sep, 2013 [facility] [place] [facility] [address] [id number] [address] 15 Sep, 2013 [facility] [place] [facility] [address] [id number] [place] [address] 15 Sep, 2013 [facility] [place] [facility] [address] [id number] [place] [address]- [address] 11 Jul, 2013 [facility] [place] [facility] [address] [id number] [place] [address] 11 Jul, 2013 [facility] [place] [facility] [address] [id number] [place] [address] Jun, [facility] [place] [facility] [address] [id number] [place] [address] Jun, [facility] [place] [facility] [address] [id number] [place] [address] Jun, [facility] [place] [facility] [address] [id number] [place] [address] Jun, [facility] [place] [facility] [address] [id number] [place] [address] Jun, [facility] [place] [facility] [address] [id number] [place] [address] Jun, [facility] [place] [facility] [address] [id number] [place] [address] Jun, [facility] [place] [facility] [address] [id number] [place] [address] Jun, [facility] [place] [facility] [address] [id number] [place] [address] Jun, [facility] [place] [facility] [address] [id number] [place] [address] Jun, [facility] [place] [facility] [address] [id number] [place] [address] Jun, [facility] [place] [facility] [address] [id number] [place] [address] Jun, [facility] [place] [facility] [address] [id number] [place] [address] Jun, [facility] [place] [facility] [address] [id number] [place] [address] Jun, [facility] [place] [facility] [address] [id number] [place] [address] Jun, [facility] [place] [facility] [address] [id number] [place] [address] Jun, [facility] [place] [facility] [address] [id number] [place] [address] Jun, [facility] [place] [facility] [address] [id number] [place] [address] Jun, [facility] [place] [facility] [address] [id number] [place] [address] Jun, [facility] [place] [facility] [address] [id number] [place] [address] Jun, [facility] [place] [facility] [address] [id number] [place] [address] Jun, [facility] [place] [facility] [address] [id number] [place] [address] Jun, [facility] [place] [facility] [address] [id number] [place] [address] May, [facility] [place] [facility] [address] [address] [id number] [place] [address] May, [facility] [place] [facility] [address] [id number] [place] [address] May, [facility] [place] [facility] [address] [id number] [place] [address] 8[address] May, [facility] [place] [facility] [address] [id number] [place] [address] 7966 May, [facility] [place] [facility] [address] [id number] [place] [address] 0462 May, [facility] [place] [facility] [address] [id number] [place] [address] 6939 May, [facility] [place] [facility] [address] [id number] [place] [address] 8770 May, [facility] [place] [facility] [address] [id number] [place] [address] 1268 May, [facility] [place] [facility] [address] [id number] [place] [address] 7160 May, [facility] [place] [facility] [address] [id number] [place] [address]- 2094 May, [facility] [place] [facility] [address] [id number] [place] [address]- 2681 May, [facility] [place] [facility] [address] [id number] [place] [address] 4111 May, [facility] [place] [facility] [address] [id number] [place] [address]- 1342 Apr, [facility] [place] [facility] [address] [id number] [place] [address]- 7498 Apr, [facility] [place] [facility] [address] [id number] [place] [address]- 4952 Apr, [facility] [place] [facility] [address] [id number] [place] [address]- 8311 Apr, [facility] [place] [facility] [address] [id number] [place] [address]- 3852 Apr, [facility] [place] [facility] [address] [id number] [place] [address] 1400 Apr, [facility] [place] [facility] [address] [id number] [place] [address]- 8122 Apr, [facility] [place] [facility] [address] [id number] [place] [address]- 4682 Apr, [facility] [place] [facility] [address] [id number] [place] [address]- 6428 Apr, [facility] [place] [facility] [address] [id number] [place] [address]- 7459 March, [facility] [place] [facility] [address] [id number] [place] [address]- 4112 March, [facility] [place] [facility] [address] [id number] [place] [address]- 6990 March, [facility] [place] [facility] [address] [id number] [place] [address]- 8737 March, [facility] [address] [id number] [place] [address]- 0871 March, [facility] [address] [id number] [place] [address]- 4302 March, [facility] [address] [id number] [place] [address] 3442 March, [facility] [place] [facility] [address] [id number] [place] [address]- 5028 March, [facility] [address] [id number] [place] [address] 9578 March[facility] [address] [id number] [place] [address]- 1759 March, [facility] [address] [id number] [place] [address]- 9918 March, [facility] [address] [id number] [place] [address]- 1787 March, [facility] [address] [id number] [place] [address]- 6017 March, [facility] [address] [id number] [place] [address]- 0234 March, [facility] [address] [id number] [place] [address]- 7274 March, [facility] [place] [facility] [address] [id number] [place] [address]- 8693 March, [facility] [place] [facility] [address] [id number] [place] [address]- 9859 March, [facility] [place] [facility] [address] [id number] [place] [address]- 0722 March, [facility] [place] [facility] [address] [id number] [place] [address] March, [facility] [place] [facility] [address] [id number] [place] [address]- 1093 March, [facility] [place] [facility] [address] [id number] [place] [address]- 2453 Feb, [facility] [place] [facility] [address] [id number] [place] [address]- 1126 Feb, [facility] [place] [facility] [address] [id number] [place] [address]- 6879 Feb, [facility] [place] [facility] [address] [id number] [place] [address]- 2723 Feb, [facility] [place] [facility] [address] [id number] [place] [address]- 5847 Feb, [facility] [place] [facility] [address] [id number] [place] [address]- 7735 Feb, [facility] [place] [facility] [address] [id number] [place] [address]- 4829 Feb, [facility] [place] [facility] [address] [id number] [place] [address]- 5607 Feb, [facility] [place] [facility] [address] [id number] [place] [address]- 8665 Jan, [facility] [place] [facility] [address] [id number] [place] [address]- 7219 Jan, [facility] [place] [facility] [address] [id number] [place] [address]- 7086 24 Jan, 2014 [facility] [place] [facility] [address] [id number] [place] [address]- 3502 24 Jan, 2014 [facility] [place] [facility] [address] [id number] [place] [address]- 4606 13 Jan, 2014 [facility] [place] [facility] [address] [id number] [place] [address] 13 Jan, 2014 [facility] [place] [facility] [address] [id number] [place] [address]- 2569 Jan, [facility] [place] [facility] [address] [id number] [place] [address]- 8172 Jan, [facility] [place] [facility] [address] [id number] [place] [address]- 8813 Jan, [facility] [place] [facility] [address] [facility] [id number] [place] [address]- 5921 Jan, [facility] [place] [facility] [address] [id number] [place] [address]- 5298 Dec, [facility] [place] [facility] [address] [id number] [place] [address]- 7877 Dec, [facility] [place] [facility] [address] [facility] [id number] [place] [address]- 2934 Dec, [facility] [place] [facility] [address] [facility] [id number] [place] [address]- 0320 Dec, [facility] [place] [facility] [address] [id number] [place] [address]- 8069 Dec, [facility] [place] [facility] [address] [facility] [id number] [place] [address]- 4820 Dec, [facility] [place] [facility] [address] [facility] [id number] [place] [address]- 9459 Dec, [facility] [place] [facility] [address] [id number] [place] [address]- 4565 Dec, [facility] [place] [facility] [address] [facility] [id number] [address] 3591 Nov, [facility] [place] [facility] [address] [id number] [place] [address]- 1564 Nov, [facility] [place] [facility] [address] [facility] [id number] [place] [address]- 9604 Nov, [facility] [place] [facility] [address] [facility] [id number] [place] [address]- 3095 Nov, [facility] [place] [facility] [address] [id number] [place] [address]- 1595 Nov, [facility] [place] [facility] [address] [id number] [place] [address]- 4098 Nov, [facility] [place] [facility] [address] [id number] [place] [address]- 8925 Nov, [facility] [place] [facility] [address] [id number] [place] [address]- 7029 Nov, [facility] [place] [facility] [address] [id number] [place] [address]- 9219 Nov, [facility] [place] [facility] [address] [id number] [place] [address]- 1688 Nov, [facility] [place] [facility] [address] [id number] [place] [address]- 1527 Nov, [facility] [place] [facility] [address] [id number] [place] [address]- 9538 Nov, [facility] [place] [facility] [address] [id number] [place] [address]- 5111 Nov, [facility] [place] [facility] [address] [id number] [place] [address]- 6439 Oct, [facility] [place] [facility] [address] [id number] [place] [address]- 8039 Oct, [facility] [place] [facility] [address] [id number] [place] [address]- 8014 Oct, [facility] [place] [facility] [address] [id number] [place] [address]- 7961 Oct, [facility] [place] [facility] [address] [id number] [place] [address]- 8105 Oct, [facility] [place] [facility] [address] [id number] [place] [address] Oct, [facility] [place] [facility] [address] [id number] [place] [address]- 4662 18 Oct, 2013 [facility] [address] [id number] [place] [address]- 9535 18 Oct, 2013 [facility] [place] [facility] [address] [id number] [place] [address]- 7153 17 Oct, 2013 [facility] [place] [facility] [address] [facility] [id number] [place] [address]- 5270 17 Oct, 2013 [facility] [place] [facility] [address] [id number] [place] [address]- 3683 Oct, [facility] [place] [facility] [address] [id number] [place] [address]- 2644 Oct, [facility] [place] [facility] [address] [id number] [place] [address]- 0019 Oct, [facility] [place] [facility] [address] [facility] [id number] [place] [address]- 7758 Oct, [facility] [place] [facility] [address] [id number] [address]- 8280 14 Sep, 2013 [facility] [place] [facility] [address] [id number] [place] [address]- 3698 14 Sep, 2013 [facility] [place] [facility] [address] [id number] [place] [address]- 5060 05 Sep, 2013 [facility] [place] [facility] [address] [id number] [place] [address]- 0173 05 Sep, 2013 [facility] [place] [facility] [address] [id number] [place] [address]- 4173 Sep, [facility] [place] [facility] [address] [id number] [place] [address]- 3390 Sep, [facility] [place] [facility] [address] [id number] [place] [address]- 3359 Sep, [facility] [place] [facility] [address] [facility] [id number] [place] [address]- 8642 Sep, [facility] [place] [facility] [address] [id number] [place] [address]- 8209 Sep, [facility] [place] [facility] [address] [id number] [place] [address]- 8855 Sep, [facility] [place] [facility] [address] [id number] [place] [address]- 2570 Aug, [facility] [place] [facility] [address] [id number] [place] [address]- 8789 Aug, [facility] [place] [facility] [address] [id number] [place] [address]- 7392 Aug, [facility] [place] [facility] [address] [id number] [place] [address]- 1792 Aug, [facility] [place] [facility] [address] [id number] [place] [address]- 9170 Aug, [facility] [place] [facility] [address] [id number] [place] [address]- 6803 Aug, [facility] [place] [facility] [address] [id number] [place] [address]- 3027 Aug, [facility] [place] [facility] [address] [id number] [place] [address]- 3868 Aug, [facility] [place] [facility] [address] [id number] [place] [address]- 6835 Aug, [facility] [place] [facility] [address] [id number] [place] [address]- 2985 Aug, [facility] [place] [facility] [address] [id number] [place] [address]- 1722 Aug, [facility] [place] [facility] [address] [id number] [place] [address]- 9007 Aug, [facility] [place] [facility] [address] [id number] [place] [address]- 4728 Aug, [facility] [place] [facility] [address] [id number] [place] [address]- 1537 Aug, [facility] [place] [facility] [address] [id number] [place] [address]- 0175 17 Aug, 2013 [facility] [place] [facility] [address] [id number] [place] [address]- 3655 14 Aug, 2013 [facility] [place] [facility] [address] [id number] [place] [address]- 0183 14 Aug, 2013 [facility] [place] [facility] [address] [id number] [place] [address]- 0776 Aug, [facility] [place] [facility] [address] [id number] [place] [address]- 2972 20 Jul, 2013 [facility] [place] [facility] [address] [id number] [place] [address]- 3712 19 Jul, 2013 [facility] [address] [id number] [place] [address]- 1728 18 Jul, 2013 [facility] [place] [facility] [address] [id number] [place] [address]- 5865 11 Jul, 2013 [facility] [place] [facility] [address] [id number] [place] [address]- 9517 Jul, [facility] [place] [facility] [address] [id number] [place] [address]- 2008 28 Jun, 2013 [facility] [place] [facility] [address] [id number] [place] [address]- 9134 Jun, [facility] [place] [facility] [address] [id number] [place] [address]- 9403 Jun, [facility] [place] [facility] [address] [id number] [place] [address]- 4728 15 Jun, 2013 [facility] [place] [facility] [address] [id number] [place] [address]- 1717 14 Jun, 2013 [facility] [place] [facility] [address] [id number] [place] [address]- 1789 Jun, [facility] [place] [facility] [address] [id number] [place] [address]- 8520 Jun, [facility] [place] [facility] [address] [id number] [place] [address]- 0268 Jun, [facility] [place] [facility] [address] [id number] [place] 8943 Jun, [facility] [place] [facility] [address] [id number] [place] [address]- 6976 Jun, [facility] [place] [facility] [address] [id number] [place] [address]- 3793 May, [facility] [place] [facility] [address] [id number] [place] [address]- 4537 May, [facility] [place] [facility] [address] [id number] [place] [address]- 6677 May, [facility] [place] [facility] [address] [id number] [place] [address]- 7755 May, [facility] [place] [facility] [address] [id number] [place] [address]- 1528 May, [facility] [place] [facility] [address] [id number] [place] [address]- 3937 May, [facility] [place] [facility] [address] [id number] [place] [address]- 8797 May, [facility] [place] [facility] [address] [id number] [place] [address]- 4604 May, [facility] [place] [facility] [address] [id number] [place] [address]- 9936 May, [facility] [place] [facility] [address] [id number] [place] [address]- 6084 Apr, [facility] [place] [facility] [address] [id number] [place] [address]- 8937 Apr, [facility] [place] [facility] [address] [id number] [place] [address]- 1936 Apr, [facility] [place] [facility] [address] [id number] [place] [address]- 9566 Apr, [facility] [address] [id number] [place] [address]- 4892 Apr, [facility] [address] [id number] [place] [address]- 7289 Apr, [facility] [address] [id number] [place] [address]- 4072 Apr, [facility] [address] [id number] [place] [address]- 4984 March, [facility] [address] [id number] [place] [address]- 0585 Feb, [facility] [address] [id number] [place] [address]- 4417 Feb, [facility] [address] [id number] [place] [address]- 4198 Feb, [facility] [address] [id number] [place] [address]- 7061 Jan, [facility] [address] [id number] [place] [address]- 9120 Jan, [facility] [address] [id number] [place] [address]- 6283 Jan, [facility] [address] [id number] [place] [address]- 4815 14 Jan, 2013 [facility] [address] [id number] [place] [address]- 1640 12 Jan, 2013 [facility] [address] [id number] [place] [address]- 7232 08 Jan, 2013 [facility] [address] [id number] [place] [address]- 4706 07 Jan, 2013 [facility] [address] [id number] [place] [address]- 4531 Jan, [facility] [address] [id number] [place] [address]- 7146 28 Dec, 2012 [facility] [place] [facility] [address] [id number] [place] [address]- 7806 25 Dec, 2012 [facility] [place] [facility] [address] [id number] [place] [address]- 8406 13 Dec, 2012 [facility] [place] [facility] [address] [id number] [place] [address]- 9508 11 Dec, 2012 [facility] [place] [facility] [address] [id number] [place] [address]- 9385 07 Dec, 2012 [facility] [place] [facility] [address] [id number] [place] [address]- 6687 06 Dec, 2012 [facility] [place] [facility] [address] [id number] [place] [address]- 9386 05 Dec, 2012 [facility] [place] [facility] [address] [id number] [place] [address]- 3683 Nov, [facility] [place] [facility] [address] [id number] [place] [address]- 5775 Nov, [facility] [place] [facility] [address] [id number] [place] [address]- 4586 Nov, [facility] [place] [facility] [address] [id number] [place] [address]- 3487 Nov, [facility] [place] [facility] [address] [id number] [place] [address]- 8864 10 Nov, 2012 [facility] [place] [facility] [address] [id number] [place] [address]- 5623 Nov, [facility] [place] [facility] [address] [id number] [place] [address]- 8712 Nov, [facility] [place] [facility] [address] [id number] [place] [address]- 4745 Oct, [facility] [place] [facility] [address] [id number] [place] [address]- 7568 Oct, [facility] [address] [id number] [place] [address]- 9126 Oct, [facility] [place] [facility] [address] [id number] [place] [address]- 3096 Oct, [facility] [address] [id number] [place] [address]- 2376 Oct, [facility] [address] [id number] [place] [address]- 3674 Oct, [facility] [address] [id number] [place] [address]- 9824 Oct, [facility] [address] [id number] [place] [address]- 7808 Oct, [facility] [address] [id number] [place] [address]- 3713 Oct, [facility] [address] [id number] [place] [address]- 6207 Oct, [facility] [address] [id number] [place] [address]- 1169 Oct, [facility] [address] [id number] [place] [address]- 0608 Oct, [facility] [place] [facility] [address] [id number] [place] [address]- 6599 Sep, [facility] [address] [id number] [place] [address]- 6164 Sep, [facility] [place] [facility] [address] [id number] [place] [address]- 5443 Sep, [facility] [place] [facility] [address] [id number] [place] [address]- 1806 Sep, [facility] [place] [facility] [address] [id number] [place] [address]- 0382 Sep, [facility] [place] [facility] [address] [id number] [place] [address]- 4298 Sep, [facility] [place] [facility] [address] [id number] [place] [address]- 0478 Sep, [facility] [place] [facility] [address] [id number] [place] [address] Sep, [facility] [place] [facility] [address] [id number] [place] [address] Sep, [facility] [place] [facility] [address] [id number] [id number] [address] Sep, [facility] [place] [facility] [address] [id number] [place] [address] Sep, [facility] [place] [facility] [address] [id number] [place] [address] Aug, [facility] [place] [facility] [address] [id number] [address] Aug, [facility] [place] [facility] [address] [id number] [place] [address] Aug, [facility] [place] [facility] [address] [facility] [id number] [place] [address] Aug, [facility] [place] [facility] [address] [facility] [id number] [place] [address] Aug, [facility] [place] [facility] [address] [id number] [place] [address] Aug, [facility] [place] [facility] [address] [id number] [place] [address] Aug, [facility] [place] [facility] [address] [id number] [place] [address] Aug, [facility] [place] [facility] [address] [facility] [id number] [place] [address] Aug, [facility] [place] [facility] [address] [id number] [place] [address] 47[address] Aug, [facility] [place] [facility] [address] [id number] [place] [address] Jul, [facility] [place] [facility] [address] [id number] [place] [address] Jul, [facility] [place] [facility] [address] [id number] [place] [address] 1156 Jul, [facility] [place] [facility] [address] [id number] [place] [address]- 1793 Jul, [facility] [place] [facility] [address] [id number] [place] [address]- 9579 Jun, [facility] [place] [facility] [address] [id number] [place] [address] 5853 Jun, [facility] [place] [facility] [address] [id number] [place] [address] 59[address] Jun, [facility] [place] [facility] [address] [id number] [place] [address] 8449 Jun, [facility] [place] [facility] [address] [id number] [place] [address]- 36[address] Jun, [facility] [place] [facility] [address] [id number] [place] [address]- 7846 Jun, [facility] [place] [facility] [address] [id number] [place] [address]- 9878 Jun, [facility] [place] [facility] [address] [id number] [place] [address]- 8284 May, [facility] [place] [facility] [address] [id number] [place] [address]- 4187 May, [facility] [place] [facility] [address] [id number] [place] [address] 6799 May, [facility] [place] [facility] [address] [id number] [place] [address] May, [facility] [place] [facility] [address] [id number] [place] [address] May, [facility] [place] [facility] [address] [id number] [place] [address]- 56[address] Apr, [facility] [place] [facility] [address] [id number] [place] [address] Apr, [facility] [place] [facility] [address] [id number] [place] [address] 1469 Apr, [facility] [place] [facility] [address] [id number] [place] [address]- 5454 Apr, [facility] [place] [facility] [address] [id number] [place] [address] 8202 Apr, [facility] [place] [facility] [address] [id number] [place] [address] March, [facility] [place] [facility] [address] [id number] [place] [address] 2988 March, [facility] [place] [facility] [address] [id number] [place] [address]167 March, [facility] [place] [facility] [address] [id number] [place] [address] March, [facility] [place] [facility] [address] [id number] [place] [address] 1002 March, [facility] [place] [facility] [address] [id number] [place] [address] 94[address] March, [facility] [place] [facility] [address] [id number] [place] [address] 7916 March, [facility] [place] [facility] [address] [id number] [place] [address]- [address]696 March, [facility] [place] [facility] [address] [id number] [place] [address] 9466 March, [facility] [place] [facility] [address] [id number] [place] [address] March, [facility] [address] [id number] [place] [address]- [address] 30 Feb, 2012 [facility] [place] [facility] [address] [id number] [place] [address] 9934 Feb, [facility] [place] [facility] [address] [id number] [place] [address]- 48[address] Feb, [facility] [place] [facility] [address] [id number] [place] [address]- 3128 Feb, [facility] [place] [facility] [address] [id number] [place] [address]- 6214 Feb, [facility] [place] [facility] [address] [id number] [place] [address]- [address]296 Feb, [facility] [place] [facility] [address] [id number] [place] [address]- 4833 Feb, [facility] [place] [facility] [address] [id number] [place] [address]- 0517 Feb, [facility] [place] [facility] [address] [id number] [place] [address]- 4890 Feb, [facility] [place] [facility] [address] [id number] [place] [address]- 3375 Jan, [facility] [place] [facility] [address] [id number] [place] [address]- 0515 Jan, [facility] [place] [facility] [address] [id number] [place] [address] 8746 Jan, [facility] [place] [facility] [address] [id number] [place] [address]- 5395 Jan, [facility] [place] [facility] [address] [id number] [place] [address]- 5521 Dec, [facility] [place] [facility] [address] [id number] [place] [address] 3[address] Dec, [facility] [place] [facility] [id number] [address] Nov, [facility] [id number] [address] Nov, [facility] [id number] [address] Nov, [facility] [id number] [address] Nov, [facility] [id number] [place] [address]- [address] Nov, [facility] [id number] [place] [address]- [address]21 Oct, [facility] [id number] [place] [address]- 4944 Oct, [facility] [id number] [place] [address]- 2924 Oct, [facility] [address] [id number] [address] Oct, [facility] [id number] [place] [id number] Oct, [facility] [id number] [address] Oct, [facility] [address] [address] Oct, [facility] [id number] [address] Oct, [facility] [address] [address] Sep, IMMUNIZATIONS No Known Immunizations SOCIAL HISTORY [...]
--- OUTSIDE RECORDS SUMMARY | 2018-09-04 11:50 | XMS REPORT ---
Author Author SHAHNAZ MARQUEZ [facility] Address [address] [place] [address] Care Team Providers Care Architectural Sales Consultant Name Role Phone SHAHNAZ MARQUEZ Unavailable PROBLEMS Type Condition ICD9-CM Code QUK16-DS Code Onset Dates Condition Status SNOMED Code Problem Other chronic pain G89.29 Active 80085062 Problem Type 2 diabetes mellitus without complication, without long-term current use of insulin E11.9 Active 204442841 Problem Low back pain M54.5 Active 186908178 Problem Hypertension I10 Active 32424837 Problem Coronary artery disease I25.10 Active 35570899 Problem Hyperlipidemia E78.5 Active 67792189 Problem Peripheral vascular disease I73.9 Active 931524315 Problem Insomnia G47.00 Active 439678725 Problem Reactive depression F32.9 Active 05784182 Problem Ventral hernia without obstruction or gangrene K43.9 Active 030861701 Problem Anxiety F41.9 Active 75712207 Problem Pharyngeal dysphagia R13.13 Active [id number] ALLERGIES No Information ENCOUNTERS Encounter Location Date Diagnosis [facility] [address] [facility] [facility] [place] [id number] May, Low back pain M54.5 [facility] [address] [facility] [id number], [place] [address] May, [facility] [address] [facility] [id number], [place] [address] Apr, Other chronic pain G89.29 [facility] [address] [facility] [id number], [place] [address] 4[address] Apr, [facility] [address] [id number], [place] [address] Apr, [facility] [address] [place] [id number] Apr, Closed compression fracture of L3 lumbar vertebra with routine healing, subsequent encounter S32.030D [facility] [employer] [address] [place] [id number] 14 Apr, 2018 Low back pain M54.5 [facility] [employer] [address] [place] [id number] Apr, Coccydynia M53.3 [facility] [id number] [place] [address] 97809- 7903 March, [facility] [address] [id number] [place] [address] 09274- 0676 March, Other chronic pain G89.29 [facility] [address] [id number] [place] [address] 34064- 5962 March, [facility] [address] [id number] [place] [address] 95222- 4620 March, [facility] [address] [id number] [place] [address] 92742- 8021 Feb, [facility] [address] [id number] [place] [address] 41964- 2824 Feb, Other chronic pain G89.29 [facility] [employer] [address] [place] [id number] Feb, Other chronic pain G89.29 and Anxiety F41.9 [facility] [address] [id number], [place] [address] 5[address] Feb, [facility] [address] [facility] [id number] [place] [address] 96072- 3376 Jan, [facility] [address] [id number], [place] [address] 3470 Jan, [facility] [address] [facility] [id number] [place] [address] 67926- 4539 Jan, [facility] [address] [id number], [place] [address] 4878 Jan, [facility] [address] [facility] [id number][place] [address]77 Dec, [facility] [address] [place] [id number] Dec, Peripheral vascular disease I73.9 ; 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 ; Other chronic pain G89.29 ; Anxiety F41.9 ; Reactive depression F32.9 ; Insomnia G47.00 and Type 2 diabetes mellitus without complication, without long-term current use of insulin E11.9 [facility] [address] [place] [address] [id number] [place] [address] Nov [facility] [address] [id number][place] [address] Nov, Anxiety F41.9 [facility] [address] [id number] [address] Nov, [facility] [address] [id number][place] [address] Nov, Anxiety F41.9 [facility] [employer] [address] [place] [id number] Nov, Status post surgery Z98.890 ; Confused R41.0 ; Anxiety F41.9 and Other chronic pain G89.29 [facility] [address] [id number][place] [address] Nov, Other chronic pain G89.29 [facility] [address] [facility] [id number][place] [address] [address] Oct, [facility] [address] [id number][place] [id number] Oct, Other chronic pain G89.29 [facility] [address] [facility] [id number], [place] 7513 Oct, Anxiety F41.9 [facility] [address] [id number][place] [address] Sep, Other chronic pain G89.29 [facility] [address] [id number][place] [id number] Sep, [facility] [employer] [address] [place] [address] Aug, Dysuria R30.0 and Anxiety F41.9 [facility] [address]00565100[place], [place] [address] 2436 Aug, [facility] [id number] [place] [address] [id number] Aug, Other chronic pain G89.29 [facility] [address]00565100[place] 3664 Jul, Other chronic pain G89.29 [facility] [id number] [place] [address] [id number] Jun, [facility] [id number] [place] [address] [id number] Jun, Other chronic pain G89.29 [facility] [address] [place] [address] 65891- 3621 Jun, [facility] [address] [place] [address] [id number]- 0298 May, Other chronic pain G89.29 [facility] [address] [place] [address] 93590- 1045 Apr, Other chronic pain G89.29 [facility] [employer] [address] [place] [id number] Apr, Reactive depression F32.9 and Pharyngeal dysphagia R13.13 [facility] [address] [id number], [place] [address] 1367 Apr, Urinary tract infection without hematuria, site unspecified N39.0 [facility] [address] [place] [address] 77433- 5708 March, Other chronic pain G89.29 [facility] [address] [address] [address]96 Feb, Other chronic pain G89.29 [facility] [address] [place] [address] 31975838- 4313 Feb, [facility] [id number] [place] [address] [id number] Feb, [facility] [employer] [address] [place] [id number] Feb, Dysuria R30.0 and Ventral hernia without obstruction or gangrene K43.9 [facility] [id number] [place] [address] 47720- 1678 Jan, Other chronic pain G89.29 [facility] [id number] [place] [address] [id number] Dec, Other chronic pain G89.29 [facility] [id number] [place] [address] 40051- 8520 Nov, Other chronic pain G89.29 [facility] [employer] [address] [place] [id number] Nov, Lymphadenitis I88.9 [facility] [id number] [place] [address] 27754- 6750 Nov, Other chronic pain G89.29 [facility] [id number] [place] [address] 71097- 3259 Nov, [facility] [id number] [place] [address] [id number] Nov, Other chronic pain G89.29 [facility] [employer] [address] [place] [address] Oct, Low back pain M54.5 ; Hypertension I10 and Type 2 diabetes mellitus without complication, without long-term current use of insulin E11.9 [facility] [id number] [place] [address] 01377- 7338 Oct, [facility] [id number] [place] [address] 54212- 1528 Oct, [facility] [id number] [place] [address] 40017- 7207 Oct, [facility] [address] [facility] [id number], [place] [address]- 0769 Oct, [facility] [address] [facility] [id number], [place] [address]- 8878 Sep, [facility] [address] [facility] [id number], [place] [address]- 2513 Sep, [facility] [address] [facility] [id number] [place] [address] 51521- 5952 Aug, Other chronic pain G89.29 [facility] [address] [facility] [id number], [place] [address]- 2536 Jul, [facility] [address] [facility] [id number], [place] [address]- 3248 Jul, [facility] [address], [place] [address]- 4587 Jul, [facility] [address]00565100[place], [place] [address]- 6945 Jun, [facility] [address]00565[address], [place] [address]- 9192 Jun, [facility] [address] [place] [id number] Jun, Low back pain M54.5 ; Other chronic pain G89.29 and Coronary artery disease I25.10 [facility] [address], [place] [address]- 7895 Jun, [facility] [address] [facility] [id number], [place] [address]- 5467 May, [facility] [address] [facility] [id number], [place] [address]- 3480 May, [facility] [address] [facility] [id number], [place] [address]- 0096 May, Other chronic pain G89.29 [facility] [address], [place] [address]- 9949 May, [facility] [address]65[address], [place] [address]- 5743 Apr, [facility] [id number] [place] [address] 17316- 1596 Apr, Acute cystitis without hematuria N30.00 [facility] [id number] [place] [address] 75861- 7117 16 Apr, 2016 Acute cystitis without hematuria N30.00 ; Coronary artery disease I25.10 ; Low back pain M54.5 and Other chronic pain G89.29 [facility] [id number] [place] [address] 47669- 8678 Apr, Other chronic pain G89.29 [facility] [id number] [place] [address] 97488- 8707 March, Other chronic pain G89.29 [facility] [id number] [place] [address] 72723- 7994 18 Feb, 2016 [facility] [id number] [place] [address] 85987- 7977 Feb, Arthritis M19.90 [facility] [id number] [place] [address] 28254- 8708 Feb, [facility] [id number] [place] [address] 60573- 0253 30 Jan, 2016 [facility] [id number] [place] [address] 12510- 0151 Jan, [facility] [address] [place] [address] 61531- 6724 Jan, Other chronic pain G89.29 [facility] [id number] [place] [address] 80254- 2495 17 Jan, 2016 Hypertension I10 ; Coronary artery disease I25.10 and Insomnia G47.00 [facility] [id number] [place] [address] 99045- 0927 Jan, [facility] [address], [place] [address]- 1555 Dec, Right hip pain M25.551 [facility] [address] [facility] [id number], [place] [address] 2546 Dec, [facility] [address], [place] [address]- 7216 Dec, [facility] [address] [facility] [id number], [place] [address] 2547 Dec, [facility] [address] [place] [address] 47937- 1469 Dec, Other chronic pain G89.29 [facility] [address], [place] [address]- 7895 Dec, [facility] [address] [place] [address] 45762- 1394 Nov, [facility] [address], [place] [address]- 1203 Nov, Other chronic pain G89.29 [facility] [address], [place] [address]- 6996 Nov, Right hip pain M25.551 and Coronary artery disease I25.10 [facility] [address], [place] [address]- 9629 Nov, Other chronic pain G89.29 [facility] [address], [place] [address]- 8687 Oct, [facility] [address], [place] [address]- 2093 Oct, [facility] [address], [place] [address]- 7613 Sep, [facility] [address], [place] [address]- 5999 Sep, [facility] [address] [id number], [place] [address]- 0393 Aug, [facility] [address], [place] [address]- 6064 Aug, Hypertension I10 ; Coronary artery disease I25.10 and Arthritis M19.90 [facility] [id number] [place] [address] 66818- 7528 Jun, [facility] [address] [facility] [id number] [place] [address] 54449- 1794 Jun, Essential hypertension, benign 401.1 ; Other chronic pain 338.29 and Chronic airway obstruction, not elsewhere classified 496 [facility] [address], [place] [address]- 2647 Jun, [facility] [id number] [place] [address] 46720- 5079 Jun, [facility] [address], [place] [address]- 1576 Jun, [facility] [address] [place] [address]- 5947 May, [facility] [address] [id number], [place] [address]- 5217 May, [facility] [address], [place] [address]- 3207 Apr, [facility] [address] [id number], [place] [address]- 7332 Apr, [facility] [address] [id number] [place] [address]- 7164 Apr, [facility] [address] [id number] [place] [address]- 3987 March, [facility] [address], [place] [address]- 7334 March, [facility] [address] [id number] [place] [address]- 0505 March, [facility] [address] [id number] [place] [address]- 8905 March, [facility] [address] [facility] [id number] [place] [address]- 3633 March, Sialadenitis 527.2 [facility] [address] [id number] [place] [address]- 0762 Feb, [facility] [address] [id number] [place] [address]- 3379 Feb, [facility] [address] [id number] [place] [address]- 4045 Feb, [facility] [address] [facility] [id number] [place] [address]- 5844 Feb, [facility] [address] [id number] [place] [address]- 0257 Feb, [facility] [address] [id number] [place] [address]- 9753 Jan, [facility] [address] [facility] [id number] [place] [address]- 3193 Jan, [facility] [address] [id number] [place] [address]- 4318 Jan, [facility] [address] [id number], [place] [address]- 3485 Jan, [facility] [address] [id number] [place] [address]- 2916 Jan, [facility] [address] [facility] [id number], [place] [address]- 4874 Jan, [facility] [address] [facility] [id number] [place] [address]- 1448 Dec, [facility] [address] [id number] [place] [address]- 6261 23 Dec, 2014 [facility] [place] [facility] [address] [id number] [place] [address]- 4676 Dec, 2014 [facility] [place] [facility] [address] [id number] [place] [address]- 8066 10 Dec, 2014 [facility] [place] [facility] [address] [id number] [place] [address]- 5216 Dec, 2014 [facility] [place] [facility] [address] [id number] [place] [address]- 8350 Dec, [facility] [place] [facility] [address] [id number] [place] [address]- 2699 Nov, [facility] [place] [facility] [address] [id number] [place] [address]- 5778 Nov, [facility] [place] [facility] [address] [id number] [place] [address]- 2218 Nov, [facility] [place] [facility] [address] [id number] [place] [address]- 8731 Nov, [facility] [place] [facility] [address] [id number] [place] [address]- 6015 Nov, [facility] [place] [facility] [address] [id number] [place] [address]- 0259 Nov, [facility] [place] [facility] [address] [id number] [place] [address]- 1675 Nov, [facility] [place] [facility] [address] [id number] [place] [address]- 6269 Nov, [facility] [place] [facility] [address] [id number] [place] [address]- 9226 Nov, [facility] [place] [facility] [address] [id number] [place] [address]- 6782 Nov, [facility] [place] [facility] [address] [id number] [place] [address]- 3845 Nov, [facility] [place] [facility] [address] [id number] [place] [address]- 7018 Nov, [facility] [place] [facility] [address] [id number] [place] [address]- 4351 Nov, [facility] [place] [facility] [address] [id number] [place] [address]- 9870 Nov, [facility] [place] [facility] [address] [id number] [place] [address]- 0946 Oct, [facility] [place] [facility] [address] [id number] [place] [address]- 5336 Oct, [facility] [place] [facility] [address] [id number] [place] [address]- 1433 Oct, [facility] [place] [facility] [address] [id number] [place] [address]- 2266 Oct, [facility] [place] [facility] [address] [id number] [place] [address]- 5016 Oct, [facility] [place] [facility] [address] [id number] [place] [address]- 8475 Oct, [facility] [place] [facility] [address] [id number] [place] [address]- 2252 Oct, [facility] [place] [facility] [address] [id number] [place] [address]- 8389 Oct, [facility] [place] [facility] [address] [id number] [place] [address]- 4930 Oct, [facility] [place] [facility] [address] [id number] [place] [address]- 4752 Sep, [facility] [place] [facility] [address] [id number] [place] [address]- 2115 Sep, [facility] [place] [facility] [address] [id number] [place] [address]- 5777 Sep, [facility] [place] [facility] [address] [id number] [place] [address]- 0268 Sep, [facility] [place] [facility] [address] [id number] [place] [address]- 9786 Sep, [facility] [place] [facility] [address] [id number] [place] [address]- 0457 Sep, [facility] [place] [facility] [address] [id number] [place] [address]- 8342 Sep, [facility] [place] [facility] [address] [id number] [place] [address]- 0278 Sep, [facility] [place] [facility] [address] [id number] [place] [address]- 2813 Sep, [facility] [place] [facility] [address] [id number] [place] [address]- 5940 Sep, [facility] [place] [facility] [address] [id number] [place] [address]- 8080 Sep, [facility] [place] [facility] [address] [id number] [place] [address]- 2902 Sep, [facility] [place] [facility] [address] [id number] [place] [address]- 9302 Aug, [facility] [place] [facility] [address] [facility] [id number] [place] [address]- 3897 Aug, [facility] [place] [facility] [address] [id number] [place] [address]- 7291 Aug, [facility] [place] [facility] [address] [id number], [place] [address] Aug, [facility] [place] [facility] [address] [id number] [place] [address] Aug, [facility] [place] [facility] [address] [id number] [place] [address] Aug, [facility] [place] [facility] [address] [facility] [id number], [place] [address] Aug, [facility] [place] [facility] [address] [id number] [place] [address] 17 Aug, 2014 [facility] [place] [facility] [address] [id number] [place] [address] 30 Jul, 2013 [facility] [place] [facility] [address] [id number] [place] [address]46 30 Jul, 2013 [facility] [place] [facility] [address] [id number] [place] [address]- [address] 30 Jul, 2013 [facility] [place] [facility] [address] [id number] [place] [address]45 30 Jul, 2013 [facility] [place] [facility] [address] [id number] [place] [address] 25 Jul, 2013 [facility] [place] [facility] [address] [id number] [place] [address]- [address] 25 Jul, 2013 [facility] [place] [facility] [address] [id number] [place] [address]- [address] 15 Jul, 2013 [facility] [place] [facility] [address] [id number] [place] [address]- [address] 15 Jul, 2014 [facility] [place] [facility] [address] [id number] [place] [address]- [address] 11 Jul, 2014 [facility] [place] [facility] [address] [id number] [place] [address]- [address] Jul, [facility] [place] [facility] [address] [id number] [place] [address] Jun, [facility] [place] [facility] [address] [id number] [place] [address] Jun, [facility] [place] [facility] [address] [id number] [place] [address] Jun, [facility] [place] [facility] [address] [id number] [place] [address]- [address] Jun, [facility] [place] [facility] [address] [id number] [place] [address] Jun, [facility] [place] [facility] [address] [id number] [place] [address]- [address] Jun, [facility] [place] [facility] [address] [id number] [place] [address]- [address] Jun, [facility] [place] [facility] [address] [id number] [place] [address]- [address] Jun, [facility] [place] [facility] [address] [id number] [place] [address]- [address]284 Jun, [facility] [place] [facility] [address] [id number] [place] [address] Jun, [facility] [place] [facility] [address] [id number] [place] [address]- [address] Jun, [facility] [place] [facility] [address] [id number] [place] [address] Jun, [facility] [place] [facility] [address] [id number] [place] [address]- [address]16 Jun, [facility] [place] [facility] [address] [id number] [place] [address]- [address] Jun, [facility] [place] [facility] [address] [id number] [place] [address]- [address] Jun, [facility] [place] [facility] [address] [id number] [place] [address]- [address] Jun, [facility] [place] [facility] [address] [id number] [place] [address]- [address] Jun, [facility] [place] [facility] [address] [id number] [place] [address] Jun, [facility] [place] [facility] [address] [id number] [place] [address] 130[address] Jun, [facility] [place] [facility] [address] [id number] [place] [address]- [address]709 Jun, [facility] [place] [facility] [address] [id number] [place] [address] Jun, [facility] [place] [facility] [address] [id number] [place] [address] Jun, [facility] [place] [facility] [address] [id number] [place] [address] May, [facility] [place] [facility] [address] [id number] [place] [address] May, [facility] [place] [facility] [address] [id number] [place] [address] May, [facility] [place] [facility] [address] [id number] [place] [address] 70[address] May, [facility] [place] [facility] [address] [id number] [place] [address]- 16[address] May, [facility] [place] [facility] [address] [id number] [place] [address]- [address]096 May, [facility] [place] [facility] [address] [id number] [place] [address]- 80[address] May, [facility] [place] [facility] [address] [id number] [place] [address]- [address] May, [facility] [place] [facility] [address] [address] [id number] [place] [address] May, [facility] [place] [facility] [address] [id number] [place] [address] 1229 May, [facility] [place] [facility] [address] [id number] [place] [address] 54[address] May, [facility] [place] [facility] [address] [id number] [place] [address] 6938 May, [facility] [place] [facility] [address] [id number] [place] [address]- 8595 May, [facility] [place] [facility] [address] [id number] [place] [address] 8167 Apr, [facility] [place] [facility] [address] [id number] [place] [address]- 6749 Apr, [facility] [place] [facility] [address] [id number] [place] [address]- 3145 Apr, [facility] [place] [facility] [address] [id number] [place] [address]- 4666 Apr, [facility] [place] [facility] [address] [id number] [place] [address]- 7479 Apr, [facility] [place] [facility] [address] [id number] [place] [address]- 1770 Apr, [facility] [place] [facility] [address] [id number] [place] [address]- 4731 Apr, [facility] [place] [facility] [address] [id number] [place] [address]- 6007 Apr, [facility] [place] [facility] [address] [id number] [place] [address]- 0902 Apr, [facility] [place] [facility] [address] [id number] [place] [address]- 4525 March, [facility] [place] [facility] [address] [id number] [place] [address]- 7403 March, [facility] [place] [facility] [address] [id number] [place] [address]- 7443 March, [facility] [place] [facility] [address] [id number] [place] [address]- 9011 March, [facility] [place] [facility] [address] [id number] [place] [address]- 6390 March, [facility] [place] [facility] [address] [id number] [place] [address]- 6748 March, [facility] [place] [facility] [address] [id number] [place] [address]- 0645 March, [facility] [place] [facility] [address] [id number] [place] [address]- 4360 March, [facility] [address] [id number] [place] [address]- 3176 March, [facility] [place] [facility] [address] [id number] [place] [address]- 4077 March, [facility] [place] [facility] [address] [id number] [place] [address]- 5782 March, [facility] [place] [facility] [address] [id number] [place] [address]- 7159 March, [facility] [place] [facility] [address] [id number] [place] [address]- 6917 March, [facility] [place] [facility] [address] [id number] [place] [address]- 6365 March, [facility] [place] [facility] [address] [id number] [place] [address]- 8017 March, [facility] [place] [facility] [address] [id number] [place] [address]- 4413 March, [facility] [place] [facility] [address] [id number] [place] [address]- 6231 March, [facility] [place] [facility] [address] [id number] [place] [address]- 2340 March, [facility] [place] [facility] [address] [id number] [place] [address]- 5439 March, [facility] [place] [facility] [address] [id number] [place] [address]- 3510 March, [facility] [place] [facility] [address] [id number] [place] [address]- 1327 Feb, [facility] [place] [facility] [address] [id number] [place] [address]- 9937 Feb, [facility] [place] [facility] [address] [id number] [place] [address]- 3681 Feb, [facility] [place] [facility] [address] [id number] [place] [address]- 2676 24 Feb, 2014 [facility] [place] [facility] [address] [id number] [place] [address]- 8291 Feb, [facility] [place] [facility] [address] [id number] [place] [address]- 2746 Feb, [facility] [place] [facility] [address] [id number] [place] [address]- 3622 Feb, [facility] [place] [facility] [address] [id number] [place] [address]- 7761 Feb, [facility] [place] [facility] [address] [id number] [place] [address]- 9813 Jan, [facility] [place] [facility] [address] [id number] [place] [address]- 0545 Jan, [facility] [place] [facility] [address] [id number] [place] [address]- 2760 Jan, [facility] [place] [facility] [address] [id number] [place] [address]- 0093 24 Jan, 2014 [facility] [place] [facility] [address] [id number] [place] [address]- 4199 Jan, [facility] [place] [facility] [address] [id number] [place] [address]- 3880 Jan, [facility] [place] [facility] [address] [id number] [place] [address]- 1172 Jan, [facility] [place] [facility] [address] [id number] [place] [address]- 6552 Jan, [facility] [place] [facility] [address] [id number] [place] [address]- 4966 Jan, [facility] [place] [facility] [address] [id number] [place] [address]- 3086 Jan, [facility] [place] [facility] [address] [id number] [place] [address]- 5725 Dec, [facility] [place] [facility] [address] [id number] [place] [address]- 5575 Dec, [facility] [place] [facility] [address] [id number] [place] [address]- 7096 Dec, [facility] [place] [facility] [address] [id number] [place] [address]- 3350 Dec, [facility] [place] [facility] [address] [id number] [place] [address]- 7532 Dec, [facility] [place] [facility] [address] [id number] [place] [address]- 4668 Dec, [facility] [place] [facility] [address] [id number] [place] [address]- 8314 Dec, [facility] [place] [facility] [address] [id number] [place] [address]- 0287 Dec, [facility] [place] [facility] [address] [id number] [place] [address]- 8177 Nov, [facility] [place] [facility] [address] [id number] [place] [address]- 9242 Nov, [facility] [place] [facility] [address] [id number] [place] [address]- 4061 Nov, [facility] [place] [facility] [address] [id number] [place] [address]- 9746 Nov, [facility] [place] [facility] [address] [id number] [place] [address]- 8919 Nov, [facility] [place] [facility] [address] [id number] [place] [address]- 4253 Nov, [facility] [place] [facility] [address] [id number] [place] [address]- 0831 Nov, [facility] [place] [facility] [address] [id number] [place] [address]- 7114 Nov, [facility] [place] [facility] [address] [id number] [place] [address]- 2550 Nov, [facility] [address] [id number] [place] [address]- 5139 Nov, [facility] [address] [id number] [place] [address]- 8116 Nov, [facility] [address] [id number] [place] [address]- 0535 Nov, [facility] [address] [id number] [place] [address]- 6748 Nov, [facility] [address] [id number] [place] [address]- 8566 Oct, [facility] [address] [id number] [place] [address]- 8277 Oct, [facility] [address] [id number] [place] [address]- 2932 Oct, [facility] [address] [id number] [place] [address]- 7383 Oct, [facility] [address] [id number] [place] [address]- 2488 Oct, [facility] [address] [id number] [place] [address] Oct, [facility] [address] [id number] [place] [address]- 1346 Oct, [facility] [address] [id number] [place] [address]- 2586 18 Oct, 2013 [facility] [place] [facility] [address] [id number] [place] [address]- 8250 Oct, [facility] [place] [facility] [address] [id number] [place] [address]- 5646 Oct, [facility] [place] [facility] [address] [id number] [place] [address]- 7006 Oct, [facility] [place] [facility] [address] [id number] [place] [address]- 3634 Oct, [facility] [place] [facility] [address] [id number] [place] [address]- 1460 Oct, [facility] [place] [facility] [address] [id number] [place] [address]- 3222 Oct, [facility] [place] [facility] [address] [id number] [place] [address]- 2025 Sep, [facility] [place] [facility] [address] [id number] [place] [address]- 6523 Sep, [facility] [place] [facility] [address] [id number], [place] [address]- 5457 Sep, [facility] [place] [facility] [address] [id number] [place] [address]- 3903 Sep, [facility] [place] [facility] [address] [id number], [place] [address]- 7526 Sep, [facility] [place] [facility] [address] [id number], [place] [address]- 8194 Sep, [facility] [place] [facility] [address] [id number], [place] [address]- 2037 Sep, [facility] [place] [facility] [address] [id number], [place] [address]- 9430 Sep, [facility] [place] [facility] [address] [id number], [place] [address]- 1544 Sep, [facility] [place] [facility] [address] [id number], [place] [address]- 5934 Sep, [facility] [place] [facility] [address] [id number], [place] [address]- 7528 Aug, [facility] [place] [facility] [address] [id number], [place] [address]- 0148 Aug, [facility] [place] [facility] [address] [id number] [place] [address]- 6459 24 Aug, 2012 [facility] [place] [facility] [address] [id number] [place] [address]- 3932 24 Aug, 2012 [facility] [place] [facility] [address] [id number] [place] [address]- 4186 23 Aug, 2012 [facility] [place] [facility] [address] [id number] [place] [address]- 1849 23 Aug, 2012 [facility] [place] [facility] [address] [id number] [place] [address]- 2212 23 Aug, 2012 [facility] [place] [facility] [address] [id number] [place] [address]- 3352 23 Aug, 2012 [facility] [place] [facility] [address] [id number] [place] [address]- 8758 Aug, 2012 [facility] [place] [facility] [address] [id number] [place] [address]- 7879 22 Aug, 2012 [facility] [place] [facility] [address] [id number] [place] [address]- 6016 18 Aug, 2012 [facility] [place] [facility] [address] [id number] [place] [address]- 1910 18 Aug, 2012 [facility] [place] [facility] [address] [id number] [place] [address]- 2914 18 Aug, 2012 [facility] [place] [facility] [address] [id number] [place] [address]- 4523 18 Aug, 2012 [facility] [place] [facility] [address] [id number], [place] [address]- 7062 17 Aug, 2012 [facility] [place] [facility] [address] [id number] [place] [address]- 7216 14 Aug, 2012 [facility] [place] [facility] [address] [id number] [place] [address]- 1012 14 Aug, 2012 [facility] [place] [facility] [address] [id number], [place] [address]- 7835 Aug2012 [facility] [place] [facility] [address] [id number] [place] [address]- 5028 20 Jul, 2012 [facility] [place] [facility] [address] [id number] [place] [address]- 6986 19 Jul, 2013 [facility] [place] [facility] [address] [id number] [place] [address]- 2547 18 Jul, 2013 [facility] [place] [facility] [address] [id number] [place] [address]- 0242 11 Jul, 2013 [facility] [place] [facility] [address] [id number] [place] [address]- 7268 11 Jul, 2013 [facility] [place] [facility] [address] [id number] [place] [address]- 0165 Jun, [facility] [place] [facility] [address] [id number] [place] [address]- 3443 Jun, [facility] [place] [facility] [address] [id number] [place] [address]- 6819 Jun, [facility] [place] [facility] [address] [id number] [place] [address]- 3402 15 Jun, 2013 [facility] [place] [facility] [address] [id number] [place] [address]- 1691 Jun, [facility] [place] [facility] [address] [id number] [place] [address]- 6707 Jun, [facility] [place] [facility] [address] [id number] [place] [address]- 2520 Jun, [facility] [place] [facility] [address] [id number] [place] [address]- 0952 Jun, [facility] [place] [facility] [address] [id number] [place] [address]- 4558 Jun, [facility] [place] [facility] [address] [id number] [place] [address]- 3675 Jun, [facility] [place] [facility] [address] [id number] [place] [address]- 8184 May, [facility] [place] [facility] [address] [id number] [place] [address]- 5288 May, [facility] [place] [facility] [address] [id number] [place] [address]- 4195 May, [facility] [place] [facility] [address] [id number] [place] [address]- 1945 May, [facility] [place] [facility] [address] [id number] [place] [address]- 1788 May, [facility] [place] [facility] [address] [id number] [place] [address]- 9872 May, [facility] [place] [facility] [address] [id number] [place] [address]- 4955 May, [facility] [place] [facility] [address] [id number] [place] [address]- 6908 May, [facility] [place] [facility] [address] [id number] [place] [address]- 1947 May, [facility] [place] [facility] [address] [id number] [place] [address]- 5996 Apr, [facility] [place] [facility] [address] [id number] [place] [address]- 8574 Apr, [facility] [place] [facility] [address] [id number] [place] [address]- 4314 Apr, [facility] [place] [facility] [address] [id number] [place] [address]- 0012 Apr, [facility] [place] [facility] [address] [id number] [place] [address]- 1982 Apr, [facility] [place] [facility] [address] [id number] [place] [address]- 8052 Apr, [facility] [place] [facility] [address] [id number] [place] [address]- 0499 Apr, [facility] [place] [facility] [address] [id number] [place] [address]- 9183 March, [facility] [address] [id number] [place] [address]- 3006 Feb, [facility] [address] [id number] [place] [address]- 8596 Feb, [facility] [address] [id number] [place] [address]- 6054 Feb, [facility] [address] [id number] [place] [address]- 5406 28 Jan, 2013 [facility] [address] [id number] [place] [address]- 1757 Jan, [facility] [address] [id number] [place] [address]- 6084 Jan, [facility] [address] [id number] [place] [address]- 0206 14 Jan, 2013 [facility] [address] [id number] [place] [address]- 5327 12 Jan, 2013 [facility] [address] [id number] [place] [address]- 7553 08 Jan, 2013 [facility] [address] [id number] [place] [address]- 1790 07 Jan, 2013 [facility] [address] [id number] [place] [address]- 4650 04 Jan, 2013 [facility] [address] [id number] [place] [address]- 6498 28 Dec, 2012 [facility] [address] [id number] [place] [address]- 5893 25 Dec, 2012 [facility] [address] [id number] [place] [address]- 5546 13 Dec, 2012 [facility] [address] [id number] [place] [address]- 5347 Dec, [facility] [address] [id number] [place] [address]- 9806 07 Dec, 2012 [facility] [place] [facility] [address] [id number] [place] [address]- 0716 06 Dec, 2012 [facility] [place] [facility] [address] [id number] [place] [address]- 0196 05 Dec, 2012 [facility] [place] [facility] [address] [id number] [place] [address]- 9787 Nov, [facility] [place] [facility] [address] [id number] [place] [address]- 9983 24 Nov, 2012 [facility] [place] [facility] [address] [id number] [place] [address]- 9156 18 Nov, 2012 [facility] [place] [facility] [address] [id number] [place] [address]- 0570 Nov, [facility] [place] [facility] [address] [id number] [place] [address]- 2061 Nov, [facility] [place] [facility] [address] [id number] [place] [address]- 5784 Nov, [facility] [place] [facility] [address] [id number] [place] [address]- 3380 Nov, [facility] [place] [facility] [address] [id number] [place] [address]- 4731 Oct, [facility] [place] [facility] [address] [id number] [place] [address]- 2458 Oct, [facility] [place] [facility] [address] [id number] [place] [address]- 8509 Oct, [facility] [place] [facility] [address] [id number] [place] [address]- 3406 Oct, [facility] [place] [facility] [address] [id number] [place] [address]- 4826 17 Oct, 2012 [facility] [place] [facility] [address] [id number] [place] [address]- 9437 Oct, [facility] [place] [facility] [address] [id number] [place] [address]- 6283 Oct, [facility] [place] [facility] [address] [id number] [place] [address]- 6466 Oct, [facility] [place] [facility] [address] [id number] [place] [address]- 6736 Oct, [facility] [place] [facility] [address] [id number] [place] [address]- 4616 Oct, [facility] [place] [facility] [address] [id number] [place] [address]- 1680 Oct, [facility] [place] [facility] [address] [id number] [place] [address]- 8432 Oct, [facility] [place] [facility] [address] [id number] [place] [address]- 0011 Sep, [facility] [place] [facility] [address] [id number] [place] [address]- 9055 Sep, [facility] [place] [facility] [address] [id number] [place] [address]- 7294 Sep, [facility] [place] [facility] [address] [facility] [id number] [place] [address]- 9623 Sep, [facility] [place] [facility] [address] [id number] [place] [address] Sep, [facility] [place] [facility] [address] [id number] [place] [address] Sep, [facility] [place] [facility] [address] [id number] [place] [address] Sep, [facility] [place] [facility] [address] [id number] [place] [address] Sep, [facility] [place] [facility] [address] [id number] [place] [address]28 Sep, [facility] [place] [facility] [address] [id number] [place] [address] Sep, [facility] [place] [facility] [address] [id number] [place] [address] Sep, [facility] [place] [facility] [address] [id number] [place] [address] Aug, [facility] [place] [facility] [address] [id number] [place] [address]88 Aug, [facility] [place] [facility] [address] [id number] [place] [address] 4739 Aug, [facility] [place] [facility] [address] [id number] [place] [address]- 8910 Aug, [facility] [place] [facility] [address] [id number] [place] [address]- [address]44 Aug, [facility] [place] [facility] [address] [id number] [place] [address] 3313 Aug, [facility] [place] [facility] [address] [id number] [place] [address]- 6261 Aug, [facility] [place] [facility] [address] [id number] [place] [address]- 8513 Aug, [facility] [place] [facility] [address] [id number] [place] [address]- 1666 Aug, [facility] [place] [facility] [address] [id number], [place] [address] Aug, [facility] [place] [facility] [address] [id number] [place] [address]- [address]162 Jul, [facility] [place] [facility] [address] [id number] [place] [address]- [address]20 20 Jul, 2012 [facility] [place] [facility] [address] [id number] [place] [address]- [address] 10 Jul, 2012 [facility] [place] [facility] [address] [id number], [place] [address] Jul, [facility] [place] [facility] [address] [id number] [place] [address] 120[address] Jun, [facility] [place] [facility] [address] [id number] [place] [address]- 5265 Jun, [facility] [place] [facility] [address] [id number] [place] [address]- 7243 Jun, [facility] [place] [facility] [address] [id number] [place] [address]- 9[address] Jun, [facility] [place] [facility] [address] [id number] [place] [address]- 3464 Jun, [facility] [place] [facility] [address] [id number] [place] [address]- 0630 Jun, [facility] [place] [facility] [address] [id number] [place] [address]- 5514 Jun, [facility] [place] [facility] [address] [id number] [place] [address]- 4144 May, [facility] [place] [facility] [address] [id number] [place] [address]226 May, [facility] [place] [facility] [address] [id number] [place] [address] 3435 May, [facility] [place] [facility] [address] [id number] [place] [address]- 8633 May, [facility] [place] [facility] [address] [id number] [place] [address]- 6134 May, [facility] [place] [facility] [address] [id number] [place] [address]- 9374 Apr, [facility] [place] [facility] [address] [id number] [place] [address] 0457 Apr, [facility] [place] [facility] [address] [id number] [place] [address]- 4328 Apr, [facility] [place] [facility] [address] [id number] [place] [address] 2307 Apr, [facility] [address] [id number] [place] [address]- 7516 Apr, [facility] [address] [id number] [place] [address] 5836 March, [facility] [address] [id number] [place] [address] 2350 March, [facility] [address] [id number] [place] [address]- 5716 March, [facility] [address] [id number] [place] [address]- 8371 March, [facility] [address] [id number] [place] [address] 9002 March, [facility] [address] [id number] [place] [address]- 8444 March, [facility] [address] [id number] [place] [address]- 6723 March, [facility] [address] [id number] [place] [address]- [address]689 March, [facility] [address] [id number] [place] [address] 7018 March, [facility] [address] [id number] [place] [address]- 7418 March, [facility] [address] [id number] [place] [address]- 8617 Feb, [facility] [place] [facility] [address] [id number] [place] [address]- 6900 Feb, [facility] [address] [id number] [place] [address]- 6684 Feb, [facility] [address] [id number] [place] [address]- 9555 Feb, [facility] [address] [id number] [place] [address]- 8651 Feb, [facility] [place] [facility] [address] [id number] [place] [address]- 1356 Feb, [facility] [place] [facility] [address] [id number] [place] [address]- 7022 Feb, [facility] [place] [facility] [address] [id number] [place] [address]- 3644 Feb, [facility] [place] [facility] [address] [id number] [place] [address]- 5032 Feb, [facility] [place] [facility] [address] [id number] [place] [address]- 3804 Jan, [facility] [place] [facility] [address] [id number] [place] [address]- 7179 Jan, [facility] [place] [facility] [address] [id number] [place] [address]- 3822 Jan, [facility] [place] [facility] [address] [id number] [place] [address]- 7587 Jan, [facility] [place] [facility] [address] [id number] [place] [address]- 5664 Dec, [facility] [place] [facility] [address] [id number] [place] [address]- 3921 Dec, [facility] [place] [facility] [address] [id number] [place] [address]- 7441 Nov, [facility] [place] [facility] [address] [id number] [place] [address]- 4096 Nov, [facility] [place] [facility] [address] [id number] [place] [address]- 7802 18 Nov, 2011 [facility] [place] [facility] [address] [id number] [place] [address]- 7020 16 Nov, 2011 [facility] [place] [facility] [address] [id number] [address] Nov, [facility] [id number] [address] Oct, [facility] [id number] [address]- [address] Oct, [facility] [id number] [address] Oct, [facility] [id number] [address] Oct, [facility] [id number] [place] [id number] Oct, [facility] [id number] [address] Oct, [facility] [id number] [address] Oct, [facility] [id number] [place] [address] Oct, [facility] [id number] [place] [address] Sep, IMMUNIZATIONS No Known Immunizations SOCIAL HISTORY Never Assessed REASON FOR VISIT Controlled Med Refill PLAN OF CARE VITAL SIGNS MEDICATIONS Medication Instructions Dosage Frequency Start Date End Date Duration Status Tramadol HCl 50 mg Orally 2 times a day 1 tablet as needed 12h Dec, 30 days Active RESULTS No Results PROCEDURES No Known procedures INSTRUCTIONS MEDICATIONS ADMINISTERED No Known Medications MEDICAL (GENERAL) HISTORY Type Description Date 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
--- OUTSIDE RECORDS SUMMARY | 2018-09-04 11:51 | XMS REPORT ---
Author Author SHAHNAZ MARQUEZ [facility] Address [address] [place] [address] Care Team Providers Care Furnace Tender Name Role Phone SHAHNAZ MARQUEZ Unavailable PROBLEMS Type Condition ICD9-CM Code IZS00-IX Code Onset Dates Condition Status SNOMED Code Problem Other chronic pain G89.29 Active 90997946 Problem Type 2 diabetes mellitus without complication, without long-term current use of insulin E11.9 Active 018967400 Problem Low back pain M54.5 Active 723818962 Problem Hypertension I10 Active 98082733 Problem Coronary artery disease I25.10 Active 74576153 Problem Hyperlipidemia E78.5 Active 48493391 Problem Peripheral vascular disease I73.9 Active 856351139 Problem Insomnia G47.00 Active 803986582 Problem Reactive depression F32.9 Active 80649469 Problem Ventral hernia without obstruction or gangrene K43.9 Active 045997622 Problem Anxiety F41.9 Active 04662999 Problem Pharyngeal dysphagia R13.13 Active [id number] ALLERGIES No Information ENCOUNTERS Encounter Location Date Diagnosis [place] [id number] [place] [address] 89776- 9214 May, [facility] [id number] [place] [address] 94515- 1268 Apr, Other chronic pain G89.29 [facility] [id number] [place] [address] 32671- 9007 Apr, [place] [id number] [place] [address] 47743- 1363 Apr, [facility] [address] [place] [id number] Apr, Closed compression fracture of L3 lumbar vertebra with routine healing, subsequent encounter S32.030D [facility] [employer] [facility] [address] [place] [id number] 14 Apr, 2018 Low back pain M54.5 [facility] [employer] [address] [place] [id number] Apr, Coccydynia M53.3 [facility] [address] [facility] [id number] [address]- 1196 March, [facility] [address] [facility] [id number] [place] [address]- 6796 March, Other chronic pain G89.29 [facility] [address] [id number] [place] [address]- 2546 March, [facility] [address] [facility] [id number] [place] [address] 27507- 6476 March, [facility] [address] [facility] [id number] [place] [address]- 3080 Feb, [facility] [id number] [place] [address] 30299- 5109 Feb, Other chronic pain G89.29 [facility] [employer] [address] [place] [id number] Feb, Other chronic pain G89.29 and Anxiety F41.9 [facility] [address] [facility] [id number] [address]- 2132 Feb, [facility] [address] [facility] [id number] [place] [address]- 0240 Jan, [facility] [address] [facility] [id number] [place] [address]- 8992 Jan, [facility] [address] [facility] [id number] [place] [address]- 0056 Jan, [facility] [address] [facility] [id number] [place] 5487 Jan, [facility] [address] [facility] [id number] [place] [address]- 2426 Dec, [facility] [employer] [address] [place] [address] Dec, Peripheral vascular disease I73.9 ; 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 ; Other chronic pain G89.29 ; Anxiety F41.9 ; Reactive depression F32.9 ; Insomnia G47.00 and Type 2 diabetes mellitus without complication, without long-term current use of insulin E11.9 [facility] ADRIENNE SANCHEZ [id number] [place] [address] Nov [facility] [id number] [place] [id number] Nov, Anxiety F41.9 [facility] [id number] [place] [address] 75086489- 9945 Nov, [facility] [id number] [place] [address] [id number] Nov, Anxiety F41.9 [facility] [employer] [facility] [address] [facility] [address] [address] [place] [id number] Nov, Status post surgery Z98.890 ; Confused R41.0 ; Anxiety F41.9 and Other chronic pain G89.29 [facility] [id number] [place] [address] [id number] Nov, Other chronic pain G89.29 [facility] [address] [place] [address] [id number] 0760 Oct, [facility] [id number] [place] [address] [id number] Oct, Other chronic pain G89.29 [facility] [address] [facility] [id number] [place] [address]- 5095 Oct, Anxiety F41.9 [facility] [id number] [place] [address] [id number] Sep, Other chronic pain G89.29 [facility] [address] [id number] [place] [address] Sep, [facility] [employer] [address] [place] [id number] Aug, Dysuria R30.0 and Anxiety F41.9 [facility] [address]00565100[place] [address]- 9523 Aug, [facility] [id number] [place] [address] [id number] Aug, Other chronic pain G89.29 [facility] [address] [place] [address] 96801- 8124 Jul, Other chronic pain G89.29 [facility] [id number] [place] [address] [id number] Jun, [facility] [address] [place] [id number] [place] [address] [id number] Jun, Other chronic pain G89.29 [facility] [id number] [place] [address] 13803- 7541 Jun, [facility] [id number] [place] [address] 14388- 4523 May, Other chronic pain G89.29 [facility] [address] [place] [address] 32310- 0704 Apr, Other chronic pain G89.29 [facility] [place] [address] [facility] [place] [id number] Apr, Reactive depression F32.9 and Pharyngeal dysphagia R13.13 [facility] [address] [place] [address] 79206- 1881 Apr, Urinary tract infection without hematuria, site unspecified N39.0 [facility] [address] [place] [address] 43211- 5687 March, Other chronic pain G89.29 [facility] [id number] [place] [address] 26164- 1896 Feb, Other chronic pain G89.29 [facility] [address]00565100[place] [address]- 6151 Feb, [facility] [address] [place] [address] [id number] [id number] Feb, [facility] [employer] [address] [place] [id number] Feb, Dysuria R30.0 and Ventral hernia without obstruction or gangrene K43.9 [facility] [address] [place] [address] [id number]- 9506 Jan, Other chronic pain G89.29 [facility] [id number] [place] [address] [id number] Dec, Other chronic pain G89.29 [facility] [id number] [place] [address] [id number]- 8488 Nov, Other chronic pain G89.29 [facility] [employer] [address] [place] [id number] Nov, Lymphadenitis I88.9 [facility] [id number] [place] [address] 14474- 3146 Nov, Other chronic pain G89.29 [facility] [address] [place] [address] 17024- 6382 Nov, [facility] [id number] [place] [address] [id number] Nov, Other chronic pain G89.29 [facility] [employer] [address] [place] [id number] Oct, Low back pain M54.5 ; Hypertension I10 and Type 2 diabetes mellitus without complication, without long-term current use of insulin E11.9 [facility] [address]65[address] [address]- 5511 Oct, [facility] [id number] [place] [address] 35824- 2194 Oct, [facility] [address] [place] [address] [id number]- 2188 Oct, [facility] [address] [place] [address] 04715- 6082 Oct, [facility] [address] [facility] [id number] [address]- 9415 Sep, [facility] [address] [facility] [id number] [place] [address]- 1151 Sep, [facility] [address] [facility] [id number] [place] [address]- 8378 Aug, Other chronic pain G89.29 [facility] [address] [facility] [id number] [place] [address]- 4071 Jul, [facility] [address] [facility] [id number] [place] [address]- 8302 Jul, [facility] [address] [facility] [id number] [place] [address]- 0526 Jul, [facility] [address] [facility] [id number] [place] [address]- 7886 Jun, [facility] [address]00565100[place] [address]- 8031 Jun, Via [facility] [place] [address] [place] [id number] Jun, Low back pain M54.5 ; Other chronic pain G89.29 and Coronary artery disease I25.10 [facility] [address] [place] [id number] [address]- 8844 Jun, [facility] [address] [facility] [id number] [place] [address]- 1257 May, [facility] [address] [facility] [id number] [address]- 0769 May, [facility] [address] [facility] [id number] [place] [address]- 2311 May, Other chronic pain G89.29 [facility] [address] [facility] [id number] [place] [address]- 6982 May, [facility] [address] [facility] [id number] [address]- 0322 28 Apr, 2016 [facility] [address]100[place] [address]- 4002 17 Apr, 2016 Acute cystitis without hematuria N30.00 [facility] [address] [place] [id number] [address]- 0372 16 Apr, 2016 Acute cystitis without hematuria N30.00 ; Coronary artery disease I25.10 ; Low back pain M54.5 and Other chronic pain G89.29 [facility] [address] [id number] [address]- 2045 13 Apr, 2016 Other chronic pain G89.29 [facility] [id number] [place] [address] 82884- 4873 March, Other chronic pain G89.29 [facility] [address] [id number] [address]- 9295 18 Feb, 2016 [facility] [id number] [place] [address] 83259- 7108 15 Feb, 2016 Arthritis M19.90 [facility] [id number] [place] [address] 87883- 8546 Feb, [facility] [address]65100[place] [address]- 8762 Jan, [facility] [address]65100[place] [address]- 0594 Jan, [facility] [address] [place] [address] 39466 2549 Jan, Other chronic pain G89.29 [facility] [address]65100[place] [address]- 3680 Jan, Hypertension I10 ; Coronary artery disease I25.10 and Insomnia G47.00 [facility] [address]65100[place] [address]- 6509 Jan, [facility] [id number] [place] [address] 68199- 2033 Dec, Right hip pain M25.551 [facility] [address] [facility] [id number] [place] [address]- 3166 Dec, [facility] [address] [facility] [id number] [place] [address]- 2546 Dec, [facility] [address] [place] [address] 88146- 4396 Dec, [facility] [address] [facility] [id number] [place] [address]- 2543 Dec, Other chronic pain G89.29 [facility] [address] [facility] [id number] [place] [address] 25655- 3273 Dec, [facility] [address] [place] [address] 02009- 9801 Nov, [facility] [address] [place] [address] 68409- 7538 Nov, Other chronic pain G89.29 [facility] [address] [place] [address] 93192- 7068 Nov, Right hip pain M25.551 and Coronary artery disease I25.10 [facility] [address] [address]- 4809 Nov, Other chronic pain G89.29 [facility] [address] [id number] [address]- 9361 Oct, [facility] [address] [id number] [address]- 3863 Oct, [facility] [address]65100[place] [address]- 1867 Sep, [facility] [address]00565100[place] [address]- 5747 Sep, [facility] [address] [place] [address] 46908- 2272 Aug, [facility] [address] [facility] [id number] [place] [address]- 8178 Aug, Hypertension I10 ; Coronary artery disease I25.10 and Arthritis M19.90 [facility] [address] [facility] [id number] [place] [address]- 9410 Jun, [facility] [address] [facility] [id number] [place] [address] 26902- 9655 Jun, Essential hypertension, benign 401.1 ; Other chronic pain 338.29 and Chronic airway obstruction, not elsewhere classified 496 [facility] [address] [facility] [id number] [place] [address] 28232- 3310 Jun, [facility] [address] [facility] [id number] [place] [address]- 9220 Jun, [facility] [id number] [place] [address] 06417- 5092 Jun, [facility] [address] [id number] [address]- 1179 May, [facility] [address] [place] [address]- 4271 May, [facility] [address] [id number] [address]- 0254 Apr, [facility] [address] [id number] [address]- 3387 Apr, [facility] [address] [facility] [id number] [place] [address]- 6347 Apr, [facility] [id number] [place] [address]- 0040 March, [facility] [address] [facility] [id number] [place] [address]- 3921 March, [facility] [address] [id number] [address]- 4425 March, [facility] [address] [id number] [place] [address]- 9118 March, [facility] [address] [id number] [place] [address]- 5413 March, Sialadenitis 527.2 [facility] [address] [id number] [place] [address]- 0908 Feb, [facility] [address] [id number] [place] [address]- 5575 Feb, [facility] [address] [id number] [place] [address]- 7952 Feb, [facility] [address] [id number] [place] [address]- 9295 Feb, [facility] [address] [facility] [id number] [place] [address]- 2573 Feb, [facility] [address] [id number] [place] [address]- 1369 Jan, [facility] [address] [id number] [place] [address]- 5994 Jan, [facility] [address] [facility] [id number] [place] [address]- 4232 Jan, [facility] [address] [id number] [place] [address]- 6523 Jan, [facility] [address] [id number] [address]- 5103 Jan, [facility] [address] [id number] [place] [address]- 0931 Jan, [facility] [address] [id number] [place] [address]- 0188 Dec, [facility] [address] [id number] [place] [address]- 2563 Dec, [facility] [address] [id number] [place] [address]- 2126 10 Dec, 2014 [facility] [place] [facility] [address] [id number] [place] [address]- 4891 Dec, 2014 [facility] [place] [facility] [address] [id number] [place] [address]- 8516 Dec, 2014 [facility] [place] [facility] [address] [id number] [place] [address]- 7276 Dec, [facility] [place] [facility] [address] [id number] [place] [address]- 3974 Nov, [facility] [place] [facility] [address] [id number] [place] [address]- 2866 Nov, [facility] [place] [facility] [address] [id number] [place] [address]- 5316 Nov, [facility] [place] [facility] [address] [id number] [place] [address]- 9961 Nov, [facility] [place] [facility] [address] [id number] [place] [address]- 5450 Nov, [facility] [place] [facility] [address] [id number] [place] [address]- 9511 Nov, [facility] [place] [facility] [address] [id number] [place] [address]- 1979 Nov, [facility] [place] [facility] [address] [id number] [place] [address]- 3512 Nov, [facility] [place] [facility] [address] [id number] [place] [address]- 2698 Nov, [facility] [place] [facility] [address] [id number] [place] [address]- 5616 Nov, [facility] [place] [facility] [address] [id number] [place] [address]- 8186 Nov, [facility] [place] [facility] [address] [id number] [place] [address]- 3223 Nov, [facility] [place] [facility] [address] [id number] [place] [address]- 0817 Nov, [facility] [place] [facility] [address] [id number] [place] [address]- 0803 Nov, [facility] [place] [facility] [address] [id number] [place] [address]- 5405 Oct, [facility] [place] [facility] [address] [id number] [place] [address]- 6136 Oct, [facility] [place] [facility] [address] [id number] [place] [address]- 9328 Oct, [facility] [place] [facility] [address] [id number] [place] [address]- 0185 Oct, [facility] [place] [facility] [address] [id number] [place] [address]- 0036 Oct, [facility] [place] [facility] [address] [id number] [place] [address]- 2196 Oct, [facility] [place] [facility] [address] [id number] [place] [address]- 1164 Oct, [facility] [place] [facility] [address] [id number] [place] [address]- 6205 Oct, [facility] [place] [facility] [address] [id number] [place] [address]- 6574 Oct, [facility] [place] [facility] [address] [id number] [place] [address]- 3990 Sep, [facility] [place] [facility] [address] [id number] [place] [address]- 8069 Sep, [facility] [place] [facility] [address] [id number] [place] [address]- 7554 Sep, [facility] [place] [facility] [address] [id number] [place] [address]- 7660 Sep, [facility] [place] [facility] [address] [id number] [place] [address]- 9822 Sep, [facility] [place] [facility] [address] [id number] [place] [address]- 7074 Sep, [facility] [place] [facility] [address] [id number] [place] [address]- 9283 Sep, [facility] [place] [facility] [address] [id number] [place] [address]- 1425 Sep, [facility] [place] [facility] [address] [id number] [place] [address]- 4860 Sep, [facility] [place] [facility] [address] [id number] [place] [address]- 6697 Sep, [facility] [place] [facility] [address] [id number] [place] [address]- 1511 Sep, [facility] [place] [facility] [address] [id number] [place] [address]- 4220 Sep, [facility] [place] [facility] [address] [id number] [place] [address]- 5190 Aug, [facility] [place] [facility] [address] [id number] [place] [address]- 3315 Aug, [facility] [place] [facility] [address] [facility] [id number] [place] [address] Aug, [facility] [place] [facility] [address] [id number] [place] [address] 29 Aug, 2014 [facility] [place] [facility] [address] [id number] [address] Aug, [facility] [place] [facility] [address] [id number] [place] [address] Aug, [facility] [place] [facility] [address] [facility] [id number] [place] [address] Aug, [facility] [place] [facility] [address] [facility] [id number] [place] [address] Aug, [facility] [place] [facility] [address] [id number] [place] [address] 30 Jul, 2013 [facility] [place] [facility] [address] [id number] [place] [address] 30 Jul, 2013 [facility] [place] [facility] [address] [id number] [place] [address] 25[address] 30 Jul, 2013 [facility] [place] [facility] [address] [id number] [place] [address] 30 Jul, 2013 [facility] [place] [facility] [address] [id number] [place] [address] 25 Jul, 2013 [facility] [place] [facility] [address] [id number] [place] [address]- [address] 25 Jul, 2013 [facility] [place] [facility] [address] [id number] [place] [address] 15 Jul, 2013 [facility] [place] [facility] [address] [id number] [place] [address]- [address] 15 Jul, 2013 [facility] [place] [facility] [address] [id number] [place] [address] 11 Jul, 2014 [facility] [place] [facility] [address] [id number] [place] [address] Jul, 2013 [facility] [place] [facility] [address] [id number] [place] [address] Jun, [facility] [place] [facility] [address] [id number] [place] [address] Jun, [facility] [place] [facility] [address] [id number] [place] [address] Jun, [facility] [place] [facility] [address] [id number] [place] [address] Jun, [facility] [place] [facility] [address] [id number] [place] [address]- [address] Jun, [facility] [place] [facility] [address] [id number] [place] [address] Jun, [facility] [place] [facility] [address] [id number] [place] [address] Jun, [facility] [place] [facility] [address] [id number] [place] [address]- [address] Jun, [facility] [place] [facility] [address] [id number] [place] [address]- [address] Jun, [facility] [place] [facility] [address] [id number] [place] [address]- [address] Jun, [facility] [place] [facility] [address] [id number] [place] [address]- [address] Jun, [facility] [place] [facility] [address] [id number] [place] [address]- [address] Jun, [facility] [place] [facility] [address] [id number] [place] [address] Jun, [facility] [place] [facility] [address] [id number] [place] [address]- [address] Jun, [facility] [place] [facility] [address] [id number] [place] [address] Jun, [facility] [place] [facility] [address] [id number] [place] [address] Jun, [facility] [place] [facility] [address] [id number] [place] [address] Jun, [facility] [place] [facility] [address] [id number] [place] [address]- [address] Jun, [facility] [place] [facility] [address] [id number] [place] [address]- [address] Jun, [facility] [place] [facility] [address] [id number] [place] [address] Jun, [facility] [place] [facility] [address] [id number] [place] [address] Jun, [facility] [place] [facility] [address] [id number] [place] [address] Jun, [facility] [place] [facility] [address] [id number] [place] [address] May, [facility] [place] [facility] [address] [id number] [place] [address] May, [facility] [place] [facility] [address] [id number] [place] [address] May, [facility] [place] [facility] [address] [id number] [place] [address] May, [facility] [place] [facility] [address] [id number] [place] [address] May, [facility] [place] [facility] [address] [id number] [place] [address] 9302 May, [facility] [place] [facility] [address] [id number] [place] [address] 1117 May, [facility] [place] [facility] [address] [id number] [place] [address] 6417 May, [facility] [place] [facility] [address] [id number] [place] [address] 0740 May, [facility] [place] [facility] [address] [id number] [place] [address]- 1678 May, [facility] [place] [facility] [address] [id number] [place] [address] 6673 May, [facility] [place] [facility] [address] [id number] [place] [address] 3523 May, [facility] [place] [facility] [address] [id number] [place] [address] 3630 May, [facility] [place] [facility] [address] [id number] [place] [address]- 6947 Apr, [facility] [place] [facility] [address] [id number] [place] [address]- 7050 Apr, [facility] [place] [facility] [address] [id number] [place] [address]- 5906 Apr, [facility] [place] [facility] [address] [id number] [place] [address]- 7787 Apr, [facility] [place] [facility] [address] [id number] [place] [address]- 5426 Apr, [facility] [place] [facility] [address] [id number] [place] [address]- 5292 Apr, [facility] [place] [facility] [address] [id number] [place] [address]- 9715 Apr, [facility] [place] [facility] [address] [id number] [place] [address] 6037 Apr, [facility] [place] [facility] [address] [id number] [place] [address]- 3584 Apr, [facility] [place] [facility] [address] [id number] [place] [address]- 5123 March, [facility] [place] [facility] [address] [id number] [place] [address] 3336 March, [facility] [place] [facility] [address] [id number] [place] [address]- 6847 March, [facility] [place] [facility] [address] [id number] [place] [address]- 1106 March, [facility] [place] [facility] [address] [id number] [place] [address]- 4516 March, [facility] [place] [facility] [address] [id number] [place] [address]- 8412 March, [facility] [place] [facility] [address] [id number] [place] [address]- 6879 March, [facility] [place] [facility] [address] [id number] [place] [address]- 1185 March, [facility] [place] [facility] [address] [id number] [place] [address] 9586 March, [facility] [address] [id number] [place] [address] 5739 March, [facility] [place] [facility] [address] [id number] [place] [address] March, [facility] [place] [facility] [address] [id number] [place] [address] 4579 March, [facility] [place] [facility] [address] [id number] [place] [address]- 1469 March, [facility] [place] [facility] [address] [id number] [place] [address]- 5253 March, [facility] [place] [facility] [address] [id number] [place] [address]- 9118 March, [facility] [place] [facility] [address] [id number] [place] [address] 7666 March, [facility] [place] [facility] [address] [id number] [place] [address] 4950 March, [facility] [place] [facility] [address] [id number] [place] [address]- 7235 March, [facility] [place] [facility] [address] [id number] [place] [address] 2252 March, [facility] [place] [facility] [address] [id number] [place] [address] 0315 March, [facility] [place] [facility] [address] [id number] [place] [address]- 2039 Feb, [facility] [place] [facility] [address] [id number] [place] [address] 8948 Feb, [facility] [place] [facility] [address] [id number] [place] [address]- 0974 Feb, [facility] [place] [facility] [address] [id number] [place] [address]- 0900 Feb, [facility] [place] [facility] [address] [id number] [place] [address] 9654 17 Feb, 2014 [facility] [place] [facility] [address] [id number] [place] [address]- 1582 Feb, [facility] [place] [facility] [address] [id number] [place] [address]- 2586 Feb, [facility] [place] [facility] [address] [id number] [place] [address]- 7053 Feb, [facility] [place] [facility] [address] [id number] [place] [address]- 2778 Jan, [facility] [place] [facility] [address] [id number] [place] [address]- 4360 Jan, [facility] [place] [facility] [address] [id number] [place] [address]- 0106 Jan, [facility] [place] [facility] [address] [id number] [place] [address]- 5341 Jan, [facility] [place] [facility] [address] [id number] [place] [address]- 6176 Jan, [facility] [place] [facility] [address] [id number] [place] [address]- 4670 Jan, [facility] [place] [facility] [address] [id number] [place] [address]- 6816 Jan, [facility] [place] [facility] [address] [id number] [place] [address]- 4114 Jan, [facility] [place] [facility] [address] [id number] [place] [address]- 0703 Jan, [facility] [place] [facility] [address] [id number] [place] Jan, [facility] [place] [facility] [address] [id number] [place] [address] Dec, [facility] [place] [facility] [address] [id number] [place] [address]- 9097 Dec, [facility] [place] [facility] [address] [id number] [place] [address]- 4495 Dec, [facility] [place] [facility] [address] [id number] [place] [address]- 4339 Dec, [facility] [place] [facility] [address] [id number] [place] [address] 1909 Dec, [facility] [place] [facility] [address] [id number] [place] [address]- 8068 Dec, [facility] [place] [facility] [address] [id number] [place] [address]- 6799 Dec, [facility] [place] [facility] [address] [id number] [place] [address]- 6785 Dec, [facility] [place] [facility] [address] [id number] [place] [address]- 7414 Nov, [facility] [place] [facility] [address] [id number] [place] [address] 1959 Nov, [facility] [place] [facility] [address] [id number] [place] [address]- 7493 Nov, [facility] [place] [facility] [address] [id number] [place] [address]- 8272 Nov, [facility] [place] [facility] [address] [id number] [place] [address]- 4481 Nov, [facility] [place] [facility] [address] [id number] [place] [address]- 3326 Nov, [facility] [place] [facility] [address] [id number] [place] [address]- 9429 Nov, [facility] [place] [facility] [address] [id number] [place] [address]- 3844 Nov, [facility] [place] [facility] [address] [id number] [place] [address]- 6366 Nov, [facility] [place] [facility] [address] [id number] [place] [address]- 8921 Nov, [facility] [address] [id number] [place] [address]- 7010 Nov, [facility] [address] [id number] [place] [address]- 0856 Nov, [facility] [address] [id number] [place] [address]- 8926 Nov, [facility] [address] [id number] [place] [address]- 7419 Oct, [facility] [address] [id number] [place] [address]- 7597 Oct, [facility] [address] [id number] [place] [address]- 3072 Oct, [facility] [address] [id number] [place] [address]- 2867 Oct, [facility] [address] [id number] [place] [address]- 6377 Oct, [facility] [address] [id number] [place] [address]- 6882 Oct, [facility] [address] [id number] [place] [address]- 7052 Oct, [facility] [address] [id number] [place] [address]- 3276 Oct, [facility] [address] [id number] [place] [address]- 9863 Oct, [facility] [place] [facility] [address] [id number] [place] [address]- 6419 Oct, [facility] [place] [facility] [address] [id number] [place] [address]- 2546 Oct, [facility] [place] [facility] [address] [id number] [place] [address]- 0206 Oct, [facility] [place] [facility] [address] [id number] [place] [address]- 0771 Oct, [facility] [place] [facility] [address] [id number] [place] [address]- 7638 Oct, [facility] [place] [facility] [address] [id number] [place] [address]- 7558 Sep, [facility] [place] [facility] [address] [id number] [place] [address]- 2034 Sep, [facility] [place] [facility] [address] [id number] [place] [address]- 4691 Sep, [facility] [place] [facility] [address] [id number] [place] [address]- 7046 Sep, [facility] [place] [facility] [address] [id number] [place] [address]- 9999 Sep, [facility] [place] [facility] [address] [id number] [place] [address]- 3681 Sep, [facility] [place] [facility] [address] [id number] [place] [address]- 9621 Sep, [facility] [place] [facility] [address] [id number] [place] [address]- 6330 Sep, [facility] [place] [facility] [address] [id number] [place] [address]- 2375 Sep, [facility] [place] [facility] [address] [id number] [place] [address]- 5451 Sep, [facility] [place] [facility] [address] [id number] [place] [address]- 3886 Aug, [facility] [place] [facility] [address] [id number] [place] [address]- 7248 Aug, [facility] [place] [facility] [address] [id number] [place] [address]- 4061 Aug, [facility] [place] [facility] [address] [id number] [place] [address]- 2827 24 Aug, 2012 [facility] [place] [facility] [address] [id number] [place] [address]- 7608 23 Aug, 2012 [facility] [place] [facility] [address] [id number] [place] [address]- 9197 23 Aug, 2012 [facility] [place] [facility] [address] [id number] [place] [address]- 4751 23 Aug, 2012 [facility] [place] [facility] [address] [id number] [place] [address]- 4331 23 Aug, 2012 [facility] [place] [facility] [address] [id number] [place] [address]- 5413 22 Aug, 2012 [facility] [place] [facility] [address] [id number] [place] [address]- 4632 22 Aug, 2012 [facility] [place] [facility] [address] [id number] [place] [address]- 6266 18 Aug, 2012 [facility] [place] [facility] [address] [id number] [place] [address]- 6164 18 Aug, 2012 [facility] [place] [facility] [address] [id number] [place] [address]- 5881 18 Aug, 2012 [facility] [place] [facility] [address] [id number] [place] [address]- 6630 18 Aug, 2012 [facility] [place] [facility] [address] [id number] [place] [address]- 5155 17 Aug, 2012 [facility] [place] [facility] [address] [id number] [place] [address]- 7044 14 Aug, 2012 [facility] [place] [facility] [address] [id number] [place] [address]- 3660 14 Aug, 2013 [facility] [place] [facility] [address] [id number] [place] [address]- 6791 Aug, 2012 [facility] [place] [facility] [address] [id number] [place] [address]- 9273 20 Jul, 2013 [facility] [place] [facility] [address] [id number] [place] [address]- 3079 19 Jul, 2013 [facility] [place] [facility] [address] [id number] [place] [address]- 9626 18 Jul, 2013 [facility] [place] [facility] [address] [id number] [place] [address]- 6756 Jul, [facility] [place] [facility] [address] [id number] [place] [address]- 5245 Jul, [facility] [place] [facility] [address] [id number] [place] [address]- 4059 Jun, [facility] [place] [facility] [address] [id number] [place] [address]- 2819 Jun, [facility] [place] [facility] [address] [id number] [place] [address]- 4512 Jun, [facility] [place] [facility] [address] [id number] [place] [address]- 1255 Jun, [facility] [place] [facility] [address] [id number] [place] [address]- 2438 Jun, [facility] [place] [facility] [address] [id number] [place] [address]- 8363 Jun, [facility] [place] [facility] [address] [id number] [place] [address]- 6226 Jun, [facility] [place] [facility] [address] [id number] [place] [address]- 4099 Jun, [facility] [place] [facility] [address] [id number] [place] [address]- 9173 Jun, [facility] [place] [facility] [address] [id number] [place] [address]- 4149 Jun, [facility] [place] [facility] [address] [id number] [place] [address]- 1232 May, [facility] [place] [facility] [address] [id number] [place] [address]- 6907 May, [facility] [place] [facility] [address] [id number] [place] [address]- 5253 May, [facility] [place] [facility] [address] [id number] [place] [address]- 1041 May, [facility] [place] [facility] [address] [id number] [place] [address]- 4603 May, [facility] [place] [facility] [address] [id number] [place] [address]- 8991 May, [facility] [place] [facility] [address] [id number] [place] [address]- 9036 May, [facility] [place] [facility] [address] [id number] [place] [address]- 9992 May, [facility] [place] [facility] [address] [id number] [place] [address]- 3492 May, [facility] [place] [facility] [address] [id number] [place] [address]- 9964 Apr, [facility] [place] [facility] [address] [id number] [place] [address]- 0384 Apr, [facility] [place] [facility] [address] [id number] [place] [address]- 3665 Apr, [facility] [place] [facility] [address] [id number] [place] [address]- 2838 Apr, [facility] [place] [facility] [address] [id number] [place] [address]- 1145 Apr, [facility] [place] [facility] [address] [id number] [place] [address]- 2719 Apr, [facility] [place] [facility] [address] [id number] [place] [address]- 1743 Apr, [facility] [place] [facility] [address] [id number] [place] [address]- 3589 March, [facility] [place] [facility] [address] [id number] [place] [address]- 7202 26 Feb, 2013 [facility] [address] [id number] [place] [address]- 4849 25 Feb, 2013 [facility] [address] [id number] [place] [address]- 6276 12 Feb, 2013 [facility] [address] [id number] [place] [address]- 3388 28 Jan, 2013 [facility] [address] [id number] [place] [address]- 1759 21 Jan, 2013 [facility] [address] [id number] [place] [address]- 7032 19 Jan, 2013 [facility] [address] [id number] [place] [address]- 8903 14 Jan, 2013 [facility] [address] [id number] [place] [address]- 1187 12 Jan, 2013 [facility] [address] [id number] [place] [address]- 0664 08 Jan, 2013 [facility] [address] [id number] [place] [address]- 7987 07 Jan, 2013 [facility] [address] [id number] [place] [address]- 2549 04 Jan, 2013 [facility] [address] [id number] [place] [address]- 9059 28 Dec, 2012 [facility] [address] [id number] [place] [address]- 0897 25 Dec, 2012 [facility] [address] [id number] [place] [address]- 7156 13 Dec, 2012 [facility] [address] [id number] [place] [address] 2546 11 Dec, 2012 [facility] [address] [id number] [place] [address]- 4936 07 Dec, 2012 [facility] [address] [id number] [place] [address]- 5431 06 Dec, 2012 [facility] [place] [facility] [address] [id number] [place] [address]- 1786 05 Dec, 2012 [facility] [place] [facility] [address] [id number] [place] [address]- 9496 Nov, [facility] [place] [facility] [address] [id number] [place] [address]- 1306 24 Nov, 2012 [facility] [place] [facility] [address] [id number] [place] [address]- 3100 Nov, [facility] [place] [facility] [address] [id number] [place] [address]- 1496 15 Nov, 2012 [facility] [place] [facility] [address] [id number] [place] [address]- 2139 Nov, [facility] [place] [facility] [address] [id number] [place] [address]- 3811 Nov, [facility] [place] [facility] [address] [id number] [place] [address]- 3698 Nov, [facility] [place] [facility] [address] [id number] [place] [address]- 9104 Oct, [facility] [place] [facility] [address] [id number] [place] [address]- 7116 31 Oct, 2012 [facility] [place] [facility] [address] [id number] [place] [address]- 9756 Oct, [facility] [place] [facility] [address] [id number] [place] [address]- 2546 Oct, [facility] [place] [facility] [address] [id number] [place] [address]- 8426 Oct, [facility] [place] [facility] [address] [id number] [place] [address]- 2546 17 Oct, 2012 [facility] [place] [facility] [address] [id number] [place] [address]- 1850 Oct, [facility] [place] [facility] [address] [id number] [place] [address]- 0208 Oct, [facility] [place] [facility] [address] [id number] [place] [address]- 4556 Oct, [facility] [place] [facility] [address] [id number] [place] [address]- 5926 Oct, [facility] [place] [facility] [address] [id number] [place] [address]- 7516 Oct, [facility] [place] [facility] [address] [id number] [place] [address]- 1549 Oct, [facility] [place] [facility] [address] [id number] [place] [address]- 4151 Sep, [facility] [place] [facility] [address] [id number] [place] [address]- 3263 Sep, [facility] [place] [facility] [address] [id number] [place] [address]- 9323 Sep, [facility] [place] [facility] [address] [id number] [place] [address]- 7184 Sep, [facility] [place] [facility] [address] [facility] [id number] [place] [address]- 1226 Sep, [facility] [place] [facility] [address] [id number] [place] [address]- 5086 Sep, [facility] [place] [facility] [address] [id number] [place] [address]- 9670 Sep, [facility] [place] [facility] [address] [id number] [place] [address]- 2154 Sep, [facility] [place] [facility] [address] [id number] [place] [address]- 6694 Sep, [facility] [place] [facility] [address] [id number] [place] [address]- 5257 Sep, [facility] [place] [facility] [address] [id number] [place] [address]- 3308 Sep, [facility] [place] [facility] [address] [id number] [place] [address]- 9048 Aug, [facility] [place] [facility] [address] [id number] [place] [address]- 4510 Aug, [facility] [place] [facility] [address] [id number] [place] [address] Aug, [facility] [place] [facility] [address] [id number] [place] [address] Aug, [facility] [place] [facility] [address] [id number] [place] [address] Aug, [facility] [place] [facility] [address] [id number] [place] [address] Aug, [facility] [place] [facility] [address] [id number] [place] [address] Aug, [facility] [place] [address] [id number] [place] [address] Aug, [facility] [place] [facility] [address] [id number] [place] [address] Aug, [facility] [place] [address] [id number] [place] [address] Aug, [facility] [place] [address] [id number] [address] Jul, [facility] [place] [facility] [address] [id number] [place] [address] 20 Jul, 2012 [facility] [place] [facility] [address] [id number] [place] [address] 10 Jul, 2012 [facility] [place] [facility] [address] [id number] [place] [address] 06 Jul, 2012 [facility] [address] [id number] [place] [address] Jun, [facility] [place] [facility] [address] [id number] [place] [address] Jun, [facility] [place] [facility] [address] [id number] [place] [address] Jun, [facility] [place] [facility] [address] [id number] [place] [address] Jun, [facility] [place] [facility] [address] [id number] [place] [address] Jun, [facility] [place] [facility] [address] [id number] [place] [address] Jun, [facility] [address] [id number] [place] [address] Jun, [facility] [address] [id number] [place] [address] May, [facility] [address] [id number] [place] [address] May, [facility] [address] [id number] [place] [address] May, [facility] [address] [id number] [place] [address] May, [facility] [address] [id number] [place] [address] May, [facility] [address] [id number] [place] [address] Apr, [facility] [address] [id number] [place] [address] Apr, [facility] [facility] [address] [id number] [place] [address] Apr, [facility] [address] [id number] [place] [address] Apr, [facility] [address] [id number] [place] [address] Apr, [facility] [address] [id number] [place] [address] March, [facility] [address] [id number] [place] [address] March, [facility] [address] [id number] [place] [address] March, [facility] [address] [id number] [place] [address] March, [facility] [address] [id number] [place] [address] March, [facility] [address] [id number] [place] [address] March, [facility] [address] [id number] [place] [address] March, [facility] [address] [id number] [place] [address] March, [facility] [address] [id number] [place] [address] March, [facility] [address] [id number] [place] [address] March, [facility] [address] [id number] [place] [address] Feb, [facility] [address] [id number] [place] [address] Feb, [facility] [address] [id number] [place] [address] Feb, [facility] [address] [id number] [place] [address]181 Feb, [facility] [address] [id number] [place] [address] 7[address] Feb, [facility] [address] [id number] [place] [address]- 74[address] Feb, [facility] [address] [id number] [place] [address]- [address]169 Feb, [facility] [address] [id number] [place] [address]60 Feb, [facility] [address] [id number] [place] [address]- 94[address] Feb, [facility] [address] [id number] [place] [address]- [address] Jan, [facility] [address] [id number] [place] [address]- [address] Jan, [facility] [address] [id number] [place] [address]- 6[address] Jan, [facility] [facility] [address] [id number] [place] [address]- [address] Jan, [facility] [address] [id number] [place] [address]- [address] Dec, [facility] [address] [id number] [place] [address]- 98[address] Dec, [facility] [address] [id number] [place] [address] Nov, [facility] [address] [id number] [place] [address]- [address]141 Nov, [facility] [address] [id number] [place] [address]163 Nov, [facility] [address] [id number] [place] [address] 16 Nov, 2011 [facility] [address] [id number] [place] [address] 8512 Nov, [facility] [address] [id number] [address] Oct, [facility] [id number] [address] Oct, [facility] [id number] [address] 140[address] Oct, [facility] [id number] [address] Oct, [facility] [id number] [address] Oct, [facility] [id number] [place] [address] Oct, [facility] [id number] [address] Oct, [facility] [address] [address] Oct, [facility] [address] [id number] [address] Sep, IMMUNIZATIONS No Known Immunizations SOCIAL HISTORY [...]
--- OUTSIDE RECORDS SUMMARY | 2018-09-04 11:52 | XMS REPORT ---
Author Author SHAHNAZ MARQUEZ Organization [facility] Address [address] [place] [address] Care Team Providers Care Director Of Workforce Development Name Role Phone SHAHNAZ MARQUEZ Unavailable PROBLEMS Type Condition ICD9-CM Code GAX76-SM Code Onset Dates Condition Status SNOMED Code Problem Other chronic pain G89.29 Active 66663246 Problem Type 2 diabetes mellitus without complication, without long-term current use of insulin E11.9 Active 989983665 Problem Low back pain M54.5 Active 086674917 Problem Hypertension I10 Active 24766659 Problem Coronary artery disease I25.10 Active 99933448 Problem Hyperlipidemia E78.5 Active 19906938 Problem Peripheral vascular disease I73.9 Active 798433395 Problem Insomnia G47.00 Active 152367069 Problem Reactive depression F32.9 Active 46432633 Problem Ventral hernia without obstruction or gangrene K43.9 Active 139144598 Problem Anxiety F41.9 Active 22665056 Problem Pharyngeal dysphagia R13.13 Active [id number] ALLERGIES No Information ENCOUNTERS Encounter Location Date Diagnosis [place] [id number] [place] [address] 03236- 0130 Apr, Other chronic pain G89.29 [facility] [id number] [place] [address] 74250- 0928 Apr, [place] [address] [place] [id number] [place] [address] 69042- 5770 Apr, [facility] [address] [place] [id number] Apr, Closed compression fracture of L3 lumbar vertebra with routine healing, subsequent encounter S32.030D [facility] [address] [place] [id number] Apr, Low back pain M54.5 [facility] [address] [place] [id number] Apr, Coccydynia M53.3 [facility] [address] [address] March, [facility] [id number] [address] 2546 March, Other chronic pain G89.29 [facility] [address] [address] 2546 March, [facility] [address] [facility] [id number] [place] [address] 2546 March, [facility] [id number] [place] [address] 65080- 6687 Feb, [facility] [address] [address] 5[address] Feb, Other chronic pain G89.29 [facility] [employer] [address] [place] [id number] Feb, Other chronic pain G89.29 and Anxiety F41.9 [facility] [address] [address] 70[address] Feb, [facility] [address] [address]- 6411 Jan, [facility] [address] [address]- 8003 Jan, [facility] [id number] [address]- 1510 Jan, [facility] [address] [address] 7971 Jan, [facility] [address] [address] 96[address] Dec, [facility] [employer] [address] [place] [id number] Dec, Peripheral vascular disease I73.9 ; 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 [id number] [place] [id number] Nov, Anxiety F41.9 [facility] [id number] [address] Nov, [facility] [id number] [place] [address] [id number] Nov, Anxiety F41.9 [facility] [employer] [address] [place] [id number] Nov, Status post surgery Z98.890 ; Confused R41.0 ; Anxiety F41.9 and Other chronic pain G89.29 [facility] [address] [id number] [place] [id number] Nov, Other chronic pain G89.29 [facility] [id number] [address] Oct, [facility] [id number] [place] [address] [id number] Oct, Other chronic pain G89.29 [facility] [id number] [address] 2546 Oct, Anxiety F41.9 [facility] [address] [id number] [place] [id number] Sep, Other chronic pain G89.29 [facility] [id number] [place] [address] [id number] Sep, Via [employer] [address] [place] [id number] Aug, Dysuria R30.0 and Anxiety F41.9 [facility] [id number] [address] Aug, [facility] [id number] [place] [id number] Aug, Other chronic pain G89.29 [facility] [id number] [address] 0976 Jul, Other chronic pain G89.29 [facility] [id number] [place] [id number] Jun, [facility] [address] [id number] [id number] Jun, Other chronic pain G89.29 [facility] [address] [address] Jun, [facility] [address] [address] May, Other chronic pain G89.29 [facility] [address] [place] [address] 76896- 9164 Apr, Other chronic pain G89.29 [facility] [address] [place] [id number] Apr, Reactive depression F32.9 and Pharyngeal dysphagia R13.13 [facility] [address] [id number] [address] 7564 Apr, Urinary tract infection without hematuria, site unspecified N39.0 [facility] [address] [address]- 7064 March, Other chronic pain G89.29 [facility] [id number] [address] Feb, Other chronic pain G89.29 [facility] [id number] [address] Feb, [facility] [id number] [place] [id number] Feb, [facility] [employer] [address] [place] [id number] Feb, Dysuria R30.0 and Ventral hernia without obstruction or gangrene K43.9 [facility] [id number] [place] [address] [id number]- 1905 Jan, Other chronic pain G89.29 [facility] [id number] [place] [address] [id number] Dec, Other chronic pain G89.29 [facility] [id number] [place] [address] 50019- 0247 Nov, Other chronic pain G89.29 [facility] [employer] [address] [place] [id number] Nov, Lymphadenitis I88.9 [facility] [address] [place] [id number] [place] [address] 21225- 9201 Nov, Other chronic pain G89.29 [facility] [id number] [place] [address] 78584- 0675 Nov, [facility] [id number] [place] [address] [id number] Nov, Other chronic pain G89.29 [facility] [employer] [address] [place] [id number] Oct, Low back pain M54.5 ; Hypertension I10 and Type 2 diabetes mellitus without complication, without long-term current use of insulin E11.9 [facility] [address] [place] [address] 79180- 2896 Oct, [facility] [id number] [place] [address] 69844- 1091 Oct, [facility] [address] [place] [id number] [place] [address] 60396- 3510 Oct, [facility] [address] [place] [id number] [place] [address] [id number]- 1714 Oct, [facility] [id number] [place] [address] 14442- 7369 Sep, [facility] [address] [facility] [id number] [place] [address]- 0853 Sep, [facility] [id number] [place] [address] 34664- 6375 Aug, Other chronic pain G89.29 [facility] [address] [facility] [id number] [place] [address]- 7520 Jul, [facility] [address] [facility] [id number] [place] [address] 80838- 2784 Jul, [facility] [address] [facility] [id number] [place] [address] 04215- 2135 Jul, [facility] [id number] [place] [address] 59338- 1866 Jun, [facility] [address] [place] [address] 61816- 5803 Jun, [facility] [address] [place] [id number] Jun, Low back pain M54.5 ; Other chronic pain G89.29 and Coronary artery disease I25.10 [facility] [address] [address]- 5269 Jun, [facility] [address] [address]- 6287 May, [facility] [id number] [place] [address] 21467- 3568 May, [facility] [address] [facility] [id number] [place] [address]- 1511 May, Other chronic pain G89.29 [facility] [address] [address]- 1964 May, [facility] [address] [facility] [id number] [place] [address]- 3366 Apr, [facility] [address] [place] [address] 04206- 5932 17 Apr, 2016 Acute cystitis without hematuria N30.00 [facility] [address] [address]- 1416 16 Apr, 2016 Acute cystitis without hematuria N30.00 ; Coronary artery disease I25.10 ; Low back pain M54.5 and Other chronic pain G89.29 [facility] [address] [address]- 8905 Apr, Other chronic pain G89.29 [facility] [id number] [place] [address] 05136- 8420 March, Other chronic pain G89.29 [facility] [id number] [place] [address] 40632- 5597 18 Feb, 2016 [facility] [id number] [place] [address] 16918- 4836 Feb, Arthritis M19.90 [facility] [id number] [place] [address] 49879- 1098 Feb, [facility] [address] [place] [address] 40086- 7318 Jan, [facility] [address] [address]- 3044 Jan, [facility] [address] [address]- 5417 Jan, Other chronic pain G89.29 [facility] [address] [address]- 4600 Jan, Hypertension I10 ; Coronary artery disease I25.10 and Insomnia G47.00 [facility] [address] [address]- 0486 Jan, [facility] [address] [address]- 3786 29 Dec, 2015 Right hip pain M25.551 [facility] [address] [id number] [address]- 7600 Dec, [facility] [address] [facility] [id number] [place] [address]- 8576 Dec, [facility] [address] [facility] [id number] [place] [address] 2546 Dec, [facility] [id number] [place] [address] 62633 2547 Dec, Other chronic pain G89.29 [facility] [address] [facility] [id number] [place] [address]- 0210 Dec, [facility] [address] [place] [address] 56299- 3384 Nov, [facility] [address] [place] [address] 97547- 3501 Nov, Other chronic pain G89.29 [facility] [address] [address]- 4071 Nov, Right hip pain M25.551 and Coronary artery disease I25.10 [facility] [address] [address]- 9713 Nov, Other chronic pain G89.29 [facility] [address] [address]- 6360 Oct, [facility] [address] [address]- 5032 Oct, [facility] [address] [address]- 6906 Sep, [facility] [address] [address]- 2542 Sep, [facility] [address] [address]- 5416 Aug, [facility] [address] [address]- 2848 Aug, Hypertension I10 ; Coronary artery disease I25.10 and Arthritis M19.90 [facility] [address] [facility] [id number] [place] [address]- 4261 Jun, [facility] [address] [facility] [id number] [place] [address]- 8839 Jun, Essential hypertension, benign 401.1 ; Other chronic pain 338.29 and Chronic airway obstruction, not elsewhere classified 496 [facility] [address] [id number] [place] [address]- 5772 Jun, [facility] [address] [facility] [id number] [place] [address], [place] [address]- 1658 Jun, [facility] [address] [facility] [id number] [place] [address]- 8689 Jun, [facility] [address] [id number] [address]- 8829 May, [facility] [address] [facility] [id number] [place] [address]- 5657 May, [facility] [address] [place] [address]- 7376 Apr, [facility] [address] [facility] [id number] [place] [address]- 7763 Apr, [facility] [address] [id number] [address]- 3821 Apr, [facility] [address] [facility] [id number] [place] [address]- 4006 March, [facility] [address] [facility] [id number] [place] [address]- 5909 March, [facility] [address] [facility] [id number] [place] [address]- 3800 March, [facility] [address] [facility] [id number] [place] [address]- 7787 March, [facility] [address] [id number] [place] [address]- 0550 March, Sialadenitis 527.2 [facility] [address] [id number] [place] [address]- 8872 Feb, [facility] [address] [facility] [id number] [place] [address]- 6931 Feb, [facility] [address] [id number] [place] [address]- 6838 Feb, [facility] [address] [id number] [place] [address]- 6031 Feb, [facility] [address] [id number] [place] [address]- 3726 Feb, [facility] [address] [facility] [id number] [place] [address]- 7223 Jan, [facility] [address] [id number] [place] [address]- 8737 Jan, [facility] [address] [id number] [place] [address]- 5628 Jan, [facility] [address] [facility] [id number] [place] [address]- 5920 Jan, [facility] [address] [id number] [place] [address]- 0863 Jan, [facility] [address] [id number] [place] [address]- 3246 Jan, [facility] [address] [id number] [place] [address]- 6447 Dec, [facility] [address] [facility] [id number] [place] [address]- 7463 Dec, [facility] [address] [facility] [id number] [place] [address]- 5865 Dec, [facility] [address] [id number] [place] [address]- 9849 10 Dec, 2014 [facility] [address] [id number] [place] [address]- 3551 Dec, [facility] [place] [facility] [address] [id number] [place] [address]- 5146 Dec, [facility] [place] [facility] [address] [id number] [place] [address]- 4748 Nov, [facility] [place] [facility] [address] [id number] [place] [address]- 6408 Nov, [facility] [place] [facility] [address] [id number] [place] [address]- 1255 Nov, [facility] [place] [facility] [address] [id number] [place] [address]- 7430 Nov, [facility] [place] [facility] [address] [id number] [place] [address]- 6262 Nov, [facility] [address] [id number] [place] [address]- 8294 Nov, [facility] [place] [facility] [address] [id number] [place] [address]- 0262 Nov, [facility] [place] [facility] [address] [id number] [place] [address]- 3583 Nov, [facility] [place] [facility] [address] [id number] [place] [address]- 6480 Nov, [facility] [place] [facility] [address] [id number] [place] [address]- 4338 Nov, [facility] [place] [facility] [address] [id number] [place] [address]- 7091 Nov, [facility] [place] [facility] [address] [id number] [place] [address]- 7776 Nov, [facility] [place] [facility] [address] [id number] [place] [address]- 6404 Nov, [facility] [place] [facility] [address] [id number] [place] [address]- 3346 Nov, [facility] [place] [facility] [address] [id number] [place] [address]- 7627 Oct, [facility] [place] [facility] [address] [id number] [place] [address]- 2472 Oct, [facility] [place] [facility] [address] [id number] [place] [address]- 9538 Oct, [facility] [place] [facility] [address] [id number] [place] [address]- 0473 Oct, [facility] [place] [facility] [address] [id number] [place] [address]- 0429 Oct, [facility] [place] [facility] [address] [id number] [place] [address]- 8999 Oct, [facility] [place] [facility] [address] [id number] [place] [address]- 8995 Oct, [facility] [place] [facility] [address] [id number] [place] [address]- 6030 Oct, [facility] [place] [facility] [address] [id number] [place] [address]- 2797 Oct, [facility] [place] [facility] [address] [id number] [place] [address]- 4374 Sep, [facility] [place] [facility] [address] [id number] [place] [address]- 0512 Sep, [facility] [place] [facility] [address] [id number] [place] [address]- 1653 Sep, [facility] [place] [facility] [address] [id number] [place] [address]- 8469 Sep, [facility] [place] [facility] [address] [id number] [place] [address]- 8314 Sep, [facility] [place] [facility] [address] [id number] [place] [address]- 9399 Sep, [facility] [place] [facility] [address] [id number] [place] [address]- 7449 Sep, [facility] [place] [facility] [address] [id number] [place] [address]- 6936 Sep, [facility] [place] [facility] [address] [id number] [place] [address]- 5733 Sep, [facility] [place] [facility] [address] [id number] [place] [address]- 1627 Sep, [facility] [place] [facility] [address] [id number] [place] [address]- 9292 Sep, [facility] [place] [facility] [address] [id number] [place] [address]- 8928 Sep, [facility] [place] [facility] [address] [id number] [place] [address]- 9222 Aug, [facility] [place] [facility] [address] [id number] [place] [address]- 9272 Aug, [facility] [place] [facility] [address] [id number] [place] [address]- 5573 Aug, [facility] [place] [facility] [address] [facility] [id number] [place] [address]- 5645 Aug, [facility] [place] [facility] [address] [id number] [place] [address]- 5089 Aug, [facility] [place] [facility] [address] [id number] [place] [address]- 6920 Aug, [facility] [place] [facility] [address] [id number] [place] [address]- 7083 Aug, [facility] [place] [facility] [address] [id number] [place] [address]- 2416 Aug, [facility] [place] [facility] [address] [facility] [id number] [place] [address]- 9933 30 Jul, 2014 [facility] [place] [facility] [address] [id number] [place] [address]- 5337 30 Jul, 2013 [facility] [place] [facility] [address] [id number] [place] [address] 2546 30 Jul, 2013 [facility] [place] [facility] [address] [id number] [place] [address] 2546 30 Jul, 2013 [facility] [place] [facility] [address] [id number] [place] [address]- 1386 25 Jul, 2013 [facility] [place] [facility] [address] [id number] [place] [address] 2547 25 Jul, 2013 [facility] [place] [facility] [address] [id number] [place] [address]- 1976 15 Jul, 2014 [facility] [place] [facility] [address] [id number] [place] [address]- 9700 Jul, 2013 [facility] [place] [facility] [address] [id number] [place] [address]- 4984 Jul, [facility] [place] [facility] [address] [id number] [place] [address]- 1727 Jul, [facility] [place] [facility] [address] [id number] [place] [address]- 7198 Jun, [facility] [place] [facility] [address] [id number] [place] [address] Jun, [facility] [place] [facility] [address] [id number] [place] [address] Jun, [facility] [place] [facility] [address] [id number] [place] [address] Jun, [facility] [place] [facility] [address] [id number] [place] [address] Jun, [facility] [place] [facility] [address] [id number] [place] [address] Jun, [facility] [place] [facility] [address] [id number] [place] [address] Jun, [facility] [place] [facility] [address] [id number] [place] [address] Jun, [facility] [place] [facility] [address] [id number] [place] [address] Jun, [facility] [place] [facility] [address] [id number] [place] [address] Jun, [facility] [place] [facility] [address] [id number] [place] [address] Jun, [facility] [place] [facility] [address] [id number] [place] [address] Jun, [facility] [place] [facility] [address] [id number] [place] [address] Jun, [facility] [place] [facility] [address] [id number] [place] [address] Jun, [facility] [place] [facility] [address] [id number] [place] [address] Jun, [facility] [place] [facility] [address] [id number] [place] [address] Jun, [facility] [place] [facility] [address] [id number] [place] [address] Jun, [facility] [place] [facility] [address] [id number] [place] [address] Jun, [facility] [place] [facility] [address] [id number] [place] [address] Jun, [facility] [place] [facility] [address] [id number] [place] [address] Jun, [facility] [place] [facility] [address] [id number] [place] [address] Jun, [facility] [place] [facility] [address] [id number] [place] [address] Jun, [facility] [place] [facility] [address] [id number] [place] [address] May, 2013 [facility] [place] [facility] [address] [id number] [place] [address] May, [facility] [place] [facility] [address] [id number] [place] [address] May, [facility] [place] [facility] [address] [id number] [place] [address] May, [facility] [place] [facility] [address] [id number] [place] [address] May, [facility] [place] [facility] [address] [id number] [place] [address] May, [facility] [place] [facility] [address] [id number] [place] [address] May, [facility] [place] [facility] [address] [id number] [place] [address] May, [facility] [place] [facility] [address] [id number] [place] [address] May, [facility] [place] [facility] [address] [id number] [place] [address] May, [facility] [place] [facility] [address] [id number] [place] [address] May, [facility] [place] [facility] [address] [id number] [place] [address] May, [facility] [place] [facility] [address] [id number] [place] [address] May, [facility] [place] [facility] [address] [id number] [place] [address] Apr, [facility] [place] [facility] [address] [id number] [place] [address] Apr, [facility] [place] [facility] [address] [id number] [place] [address]- [address] Apr, [facility] [place] [facility] [address] [id number] [place] [address] Apr, [facility] [place] [facility] [address] [id number] [place] [address] Apr, [facility] [facility] [address] [id number] [place] [address] Apr, [facility] [place] [facility] [address] [id number] [place] [address] 8255 Apr, [facility] [place] [facility] [address] [id number] [place] [address]- 3315 Apr, [facility] [place] [facility] [address] [id number] [place] [address]- 3411 Apr, [facility] [place] [facility] [address] [id number] [place] [address]- 2110 March, [facility] [place] [facility] [address] [id number] [place] [address]- 6842 March, [facility] [place] [facility] [address] [id number] [place] [address]- 9956 March, [facility] [place] [facility] [address] [id number] [place] [address]- 3978 March, [facility] [place] [facility] [address] [id number] [place] [address]- 5052 March, [facility] [place] [facility] [address] [id number] [place] [address]- 9913 March, [facility] [place] [facility] [address] [id number] [place] [address]- 3205 March, [facility] [place] [facility] [address] [id number] [place] [address] 1909 March, [facility] [place] [facility] [address] [id number] [place] [address]- 2464 March, [facility] [place] [facility] [address] [id number] [place] [address]- 1070 March, [facility] [address] [id number] [place] [address]- 7478 March, [facility] [place] [facility] [address] [id number] [place] [address] March, [facility] [place] [facility] [address] [id number] [place] [address]- 5061 March, [facility] [place] [facility] [address] [id number] [place] [address]- 2930 March, [facility] [place] [facility] [address] [id number] [place] [address]- 5220 March, [facility] [place] [facility] [address] [id number] [place] [address]- 9024 March, [facility] [address] [id number] [place] [address]- 4558 March, [facility] [address] [id number] [place] [address]- 1836 March, [facility] [address] [id number] [place] [address]- 3902 March, [facility] [address] [id number] [place] [address]- 9091 March, [facility] [address] [id number] [place] [address]- 9100 Feb, [facility] [place] [facility] [address] [id number] [place] [address]- 5911 Feb, [facility] [place] [address] [id number] [place] [address]- 5943 Feb, [facility] [address] [id number] [place] [address]- 5341 Feb, [facility] [place] [address] [id number] [place] [address]- 4924 Feb, [facility] [address] [id number] [place] [address]- 1533 17 Feb, 2014 [facility] [address] [id number] [place] [address]- 1213 Feb, [facility] [place] [facility] [address] [id number] [place] Feb, [facility] [address] [id number] [place] [address]- 7678 Jan, [facility] [address] [id number] [place] [address]- 5675 Jan, [facility] [place] [address] [id number] [place] [address]- 6601 Jan, [facility] [address] [id number] [place] [address]- 0581 Jan, [facility] [address] [id number] [place] [address]- 3157 Jan, [facility] [address] [id number] [place] [address]- 6362 Jan, [facility] [address] [id number] [place] [address]- 5841 Jan, [facility] [address] [id number] [place] [address]- 3103 Jan, [facility] [address] [id number] [place] [address]- 7795 Jan, [facility] [place] [address] [id number] [place] [address]- 8278 Jan, [facility] [address] [id number] [place] [address]- 5197 Dec, [facility] [address] [id number] [place] [address]- 9606 Dec, [facility] [address] [id number] [place] [address]- 3335 Dec, [facility] [address] [id number] [place] [address]- 9833 Dec, [facility] [address] [id number] [place] [address]- 2482 Dec, [facility] [address] [id number] [place] [address]- 1519 Dec, [facility] [address] [id number] [place] [address]- 1558 Dec, [facility] [address] [id number] [place] [address]- 0367 Dec, [facility] [address] [id number] [place] [address]- 6253 Nov, [facility] [address] [id number] [place] [address]- 5922 Nov, [facility] [address] [id number] [place] [address]- 5392 Nov, [facility] [address] [id number] [place] [address]- 9343 Nov, [facility] [address] [id number] [place] [address]- 3241 Nov, [facility] [address] [id number] [place] [address]- 6440 Nov, [facility] [address] [id number] [place] [address]- 1959 Nov, [facility] [address] [id number] [place] [address]- 6601 Nov, [facility] [address] [id number] [place] [address]- 3950 Nov, [facility] [address] [id number] [place] [address]- 7151 Nov, [facility] [address] [id number] [place] [address]- 3886 Nov, [facility] [address] [id number] [place] [address]- 5508 Nov, [facility] [address] [id number] [place] [address]- 3826 Nov, [facility] [address] [id number] [place] [address]- 1717 Oct, [facility] [address] [id number] [place] [address]- 3452 Oct, [facility] [address] [id number] [place] [address]- 8441 Oct, [facility] [address] [id number] [place] Oct, [facility] [address] [id number] [place] [address]- 6362 Oct, [facility] [address] [id number] [place] [address]- 4523 Oct, [facility] [address] [id number] [place] [address]- 0094 Oct, [facility] [address] [id number] [place] [address] Oct, [facility] [address] [id number] [place] [address]- 2236 Oct, [facility] [address] [id number] [place] [address]- 8865 17 Oct, 2013 [facility] [address] [id number] [place] [address]- 9386 Oct, [facility] [address] [id number] [place] [address]- 2546 Oct, [facility] [address] [id number] [place] [address]- 5486 Oct, [facility] [address] [id number] [place] [address]- 1156 Oct, [facility] [address] [id number] [place] [address]- 2110 Sep, [facility] [address] [id number] [place] [address]- 2876 Sep, [facility] [address] [id number] [place] [address]- 5158 Sep, [facility] [address] [id number] [place] [address]- 5166 Sep, [facility] [address] [id number] [place] [address]- 6059 Sep, [facility] [address] [id number] [place] [address]- 7072 Sep, [facility] [address] [id number] [place] [address]- 7586 Sep, [facility] [address] [id number] [place] [address]- 9993 Sep, [facility] [address] [id number] [place] [address]- 6061 Sep, [facility] [address] [id number] [place] [address]- 2440 Sep, [facility] [address] [id number] [place] [address]- 3042 Aug, [facility] [address] [id number] [place] [address]- 6704 Aug, [facility] [address] [id number] [place] [address]- 2806 Aug, [facility] [address] [id number] [place] [address]- 3734 Aug, [facility] [address] [id number] [place] [address]- 1181 23 Aug, 2012 [facility] [address] [id number] [place] [address]- 7743 23 Aug, 2012 [facility] [address] [id number] [place] [address]- 0170 23 Aug, 2012 [facility] [address] [id number] [place] [address]- 9774 23 Aug, 2012 [facility] [address] [id number] [place] [address]- 3078 22 Aug, 2012 [facility] [address] [id number] [place] [address]- 3351 22 Aug, 2012 [facility] [address] [id number] [place] [address]- 1560 18 Aug, 2012 [facility] [address] [id number] [place] [address]- 6655 18 Aug, 2012 [facility] [address] [id number] [place] [address]- 2516 18 Aug, 2012 [facility] [address] [id number] [place] [address]- 2459 18 Aug, 2012 [facility] [address] [id number] [place] [address]- 8149 17 Aug, 2012 [facility] [address] [id number] [place] [address]- 5428 14 Aug, 2012 [facility] [address] [id number] [place] [address]- 9367 14 Aug, 2012 [facility] [address] [id number] [place] [address]- 6991 Aug, 2012 [facility] [address] [id number] [place] [address]- 0735 20 Jul, 2012 [facility] [address] [id number] [place] [address]- 8637 19 Jul2012 [facility] [address] [id number] [place] [address]- 5824 18 Jul, 2013 [facility] [address] [id number] [place] [address]- 3744 Jul, [facility] [address] [id number] [place] [address]- 7562 Jul, [facility] [address] [id number] [place] [address]- 0708 Jun, [facility] [address] [id number] [place] [address]- 1136 Jun, [facility] [address] [id number] [place] [address]- 4487 Jun, [facility] [address] [id number] [place] [address]- 0833 Jun, [facility] [address] [id number] [place] [address]- 3759 Jun, [facility] [address] [id number] [place] [address]- 2883 Jun, [facility] [address] [id number] [place] [address]- 6453 Jun, [facility] [address] [id number] [place] [address]- 8738 Jun, [facility] [address] [id number] [place] [address]- 9394 Jun, [facility] [address] [id number] [place] [address]- 0864 Jun, [facility] [address] [id number] [place] [address]- 3093 May, [facility] [address] [id number] [place] [address]- 6552 May, [facility] [place] [address] [id number] [place] [address]- 1304 May, [facility] [address] [id number] [place] [address]- 2541 May, [facility] [address] [id number] [place] [address]- 2184 May, [facility] [address] [id number] [place] [address]- 7013 May, [facility] [address] [id number] [place] [address]- 6829 May, [facility] [address] [id number] [place] [address]- 5688 May, [facility] [address] [id number] [place] [address]- 2186 May, [facility] [address] [id number] [place] [address]- 1429 Apr, [facility] [address] [id number] [place] [address]- 0311 Apr, [facility] [address] [id number] [place] [address]- 1234 Apr, [facility] [address] [id number] [place] [address]- 2137 Apr, [facility] [address] [id number] [place] [address]- 9100 Apr, [facility] [address] [id number] [place] [address]- 1119 Apr, [facility] [address] [id number] [place] [address]- 0893 Apr, [facility] [address] [id number] [place] [address]- 3790 March, [facility] [address] [id number] [place] [address]- 7589 Feb, [facility] [address] [id number] [place] [address]- 2613 25 Feb, 2013 [facility] [address] [id number] [place] [address]- 8637 Feb, [facility] [address] [id number] [place] [address]- 7528 28 Jan, 2013 [facility] [address] [id number] [place] [address]- 3171 21 Jan, 2013 [facility] [address] [id number] [place] [address]- 5306 19 Jan, 2013 [facility] [address] [id number] [place] [address]- 9502 14 Jan, 2013 [facility] [address] [id number] [place] [address]- 7827 12 Jan, 2013 [facility] [address] [id number] [place] [address]- 3034 08 Jan, 2013 [facility] [address] [id number] [place] [address]- 9460 07 Jan, 2013 [facility] [address] [id number] [place] [address]- 1442 04 Jan, 2013 [facility] [address] [id number] [place] [address]- 5082 28 Dec, 2012 [facility] [address] [id number] [place] [address]- 4876 25 Dec, 2012 [facility] [address] [id number] [place] [address]- 1058 13 Dec, 2012 [facility] [facility] [address] [id number] [place] [address]- 3122 11 Dec, 2012 [facility] [address] [id number] [place] [address] 2546 07 Dec, 2012 [facility] [address] [id number] [place] [address]- 0388 06 Dec, 2012 [facility] [address] [id number] [place] [address]- 0971 Dec, [facility] [place] [facility] [address] [id number] [place] [address]- 6026 Nov, [facility] [place] [facility] [address] [id number] [place] [address] 2546 Nov, [facility] [place] [facility] [address] [id number] [place] [address]- 5806 Nov, [facility] [place] [facility] [address] [id number] [place] [address]- 8966 Nov, [facility] [place] [facility] [address] [id number] [place] [address]- 2733 Nov, [facility] [place] [facility] [address] [id number] [place] [address]- 1896 Nov, [facility] [place] [facility] [address] [id number] [place] [address]- 8455 Nov, [facility] [place] [facility] [address] [id number] [place] [address]- 7834 Oct, [facility] [place] [facility] [address] [id number] [place] [address]- 4354 Oct, [facility] [place] [facility] [address] [id number] [place] [address]- 5095 Oct, [facility] [place] [facility] [address] [id number] [place] [address]- 2543 Oct, [facility] [place] [facility] [address] [id number] [place] [address]- 2546 Oct, [facility] [place] [facility] [address] [id number] [place] [address]- 0876 Oct, [facility] [place] [facility] [address] [id number] [place] [address]- 2546 Oct, [facility] [place] [facility] [address] [id number] [place] [address]- 1837 Oct, [facility] [place] [facility] [address] [id number] [place] [address]- 0833 Oct, [facility] [place] [facility] [address] [id number] [place] [address]- 6176 Oct, [facility] [place] [facility] [address] [id number] [place] [address]- 9775 Oct, [facility] [place] [facility] [address] [id number] [place] [address]- 8738 Oct, [facility] [place] [facility] [address] [id number] [place] [address]- 6917 Sep, [facility] [place] [facility] [address] [id number] [place] [address]- 6784 Sep, [facility] [place] [facility] [address] [id number] [place] [address]- 6119 Sep, [facility] [place] [facility] [address] [id number] [place] [address]- 6727 Sep, [facility] [place] [facility] [address] [id number] [place] [address]- 6787 Sep, [facility] [place] [facility] [address] [facility] [id number] [place] [address]- 2677 Sep, [facility] [place] [facility] [address] [id number] [place] [address]- 6029 Sep, [facility] [place] [facility] [address] [id number] [place] [address]- 5307 Sep, [facility] [place] [facility] [address] [id number] [place] [address]- 0860 Sep, [facility] [place] [facility] [address] [id number] [place] [address]- 8804 Sep, [facility] [place] [facility] [address] [id number] [place] [address]- 6482 Sep, [facility] [place] [facility] [address] [id number] [place] [address]- 5171 Aug, [facility] [place] [facility] [address] [id number] [place] [address]- 1201 Aug, [facility] [place] [facility] [address] [id number] [place] [address]- 0360 Aug, [facility] [place] [facility] [address] [id number] [place] [address]- 5211 Aug, [facility] [place] [facility] [address] [id number] [place] [address]- 7285 Aug, [facility] [place] [facility] [address] [id number] [place] [address]- 9272 Aug, [facility] [place] [facility] [address] [id number] [place] [address]- 7943 Aug, [facility] [place] [facility] [address] [id number] [place] [address]- 1929 Aug, [facility] [place] [facility] [address] [id number] [place] [address]- 0693 Aug, [facility] [place] [facility] [address] [id number] [place] [address]- 3582 Aug, [facility] [place] [facility] [address] [id number] [place] [address]- 4260 Jul, [facility] [place] [facility] [address] [id number] [place] [address] 20 Jul, 2012 [facility] [place] [facility] [address] [id number] [place] [address] 10 Jul, 2012 [facility] [place] [facility] [address] [id number] [place] [address] 06 Jul, 2012 [facility] [place] [facility] [address] [id number] [place] [address] 30 Jun, 2012 [facility] [place] [facility] [address] [id number] [place] [address] Jun, [facility] [place] [facility] [address] [id number] [place] [address] Jun, [facility] [place] [facility] [address] [id number] [place] [address] Jun, [facility] [place] [facility] [address] [id number] [place] [address] Jun, [facility] [place] [facility] [address] [id number] [place] [address] Jun, [facility] [place] [facility] [address] [id number] [place] [address] Jun, [facility] [place] [facility] [address] [id number] [place] [address] May, [facility] [place] [facility] [address] [id number] [place] [address] May, [facility] [place] [facility] [address] [id number] [place] [address] May, [facility] [place] [facility] [address] [id number] [place] [address] May, [facility] [place] [facility] [address] [id number] [place] [address] May, [facility] [place] [facility] [address] [id number] [place] [address] Apr, [facility] [place] [facility] [address] [id number] [place] [address] Apr, [facility] [place] [facility] [address] [id number] [place] [address]268 Apr, [facility] [place] [facility] [address] [id number] [place] [address] Apr, [facility] [place] [facility] [address] [id number] [place] [address] Apr, [facility] [place] [facility] [address] [id number] [place] [address] March, [facility] [address] [id number] [place] [address] March, [facility] [address] [id number] [place] [address] March, [facility] [address] [id number] [place] [address] March, [facility] [address] [id number] [place] [address] March, [facility] [address] [id number] [place] [address] March, [facility] [address] [id number] [place] [address] March, [facility] [address] [id number] [place] [address] March, [facility] [address] [id number] [place] [address] March, [facility] [address] [id number] [place] [address] March, [facility] [address] [id number] [place] [address] 69[address] Feb, [facility] [address] [id number] [place] [address] 69[address] Feb, [facility] [address] [id number] [place] [address] Feb, [facility] [address] [id number] [place] [address] Feb, [facility] [address] [id number] [place] [address] Feb, [facility] [address] [id number] [place] [address] Feb, [facility] [address] [id number] [place] [address] Feb, [facility] [place] [facility] [address] [id number] [place] [address] Feb, [facility] [place] [facility] [address] [id number] [place] [address] Feb, [facility] [place] [facility] [address] [id number] [place] [address] Jan, [facility] [place] [facility] [address] [id number] [place] [address] Jan, [facility] [place] [facility] [address] [id number] [place] [address]- 7036 Jan, [facility] [place] [facility] [address] [id number] [place] [address] 89[address] Jan, [facility] [place] [facility] [address] [id number] [place] [address] 1574 Dec, [facility] [place] [facility] [address] [id number] [place] [address] 97[address] Dec, [facility] [place] [facility] [address] [id number] [place] [address] Nov, [facility] [place] [facility] [address] [id number] [place] [address]168 Nov, [facility] [place] [facility] [address] [id number] [place] [address] Nov, [facility] [place] [facility] [address] [id number] [place] [address]- 6[address] Nov, [facility] [place] [facility] [address] [id number] [place] [address]- 8725 Nov, [facility] [place] [facility] [address] [id number] [place] [address] Oct, [facility] [place] [facility] [address] [id number] [place] [address] Oct, [facility] [id number] [address] Oct, [facility] [id number] [address] Oct, [facility] [id number] [address] Oct, [facility] [id number] [place] [address] Oct, [facility] [id number] [address] 69[address] Oct, [facility] [id number] [address] Oct, [facility] [address] [id number] [place] [address] Sep, IMMUNIZATIONS No Known Immunizations SOCIAL HISTORY Never Assessed REASON FOR VISIT Requests return call PLAN OF CARE VITAL SIGNS MEDICATIONS Unknown Medications RESULTS No Results PROCEDURES No Known procedures INSTRUCTIONS MEDICATIONS ADMINISTERED No Known Medications MEDICAL (GENERAL) HISTORY Type Description Date 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
--- OUTSIDE RECORDS SUMMARY | 2018-09-04 11:53 | XMS REPORT ---
Author Author SHAHNAZ MARQUEZ Organization [facility] Address [address] [place] [address] Care Team Providers Care Lpta Name Role Phone SHAHNAZ MARQUEZ Unavailable PROBLEMS Type Condition ICD9-CM Code THR00-WK Code Onset Dates Condition Status SNOMED Code Problem Other chronic pain G89.29 Active 33230200 Problem Type 2 diabetes mellitus without complication, without long-term current use of insulin E11.9 Active 035846891 Problem Low back pain M54.5 Active 779828564 Problem Hypertension I10 Active 23848445 Problem Coronary artery disease I25.10 Active 73865501 Problem Hyperlipidemia E78.5 Active 97856807 Problem Peripheral vascular disease I73.9 Active 967394120 Problem Insomnia G47.00 Active 877806606 Problem Reactive depression F32.9 Active 03745106 Problem Ventral hernia without obstruction or gangrene K43.9 Active 426179057 Problem Anxiety F41.9 Active 08751411 Problem Pharyngeal dysphagia R13.13 Active [id number] ALLERGIES No Information ENCOUNTERS Encounter Location Date Diagnosis [place] [id number] [place] [address] 90885- 6116 Apr, Other chronic pain G89.29 [facility] [id number] [place] [address] 63153- 2713 Apr, [place] [address] [place] [id number] [place] [address] 02004- 8315 Apr, [facility] [employer] [address] [place] [id number] Apr, Closed compression fracture of L3 lumbar vertebra with routine healing, subsequent encounter S32.030D [facility] [employer] [address] [place] [id number] Apr, Low back pain M54.5 [facility] [employer] [address] [place] [id number] Apr, Coccydynia M53.3 [facility] [address] [address] 12[address] March, [facility] [id number] [address] 2546 March, Other chronic pain G89.29 [facility] [address] [address] 2546 March, [facility] [address] [id number] [address] 2546 March, [facility] [id number] [place] [address] 99788- 9940 Feb, [facility] [address] [address] 3180 Feb, Other chronic pain G89.29 Via [employer] [address] [place] [id number] Feb, Other chronic pain G89.29 and Anxiety F41.9 [facility] [address] [address] 1534 Feb, [facility] [address] [address]- 6876 Jan, [facility] [address] [address]- 9570 Jan, [facility] [id number] [address]- 7490 Jan, [facility] [address] [address]- 9876 Jan, [facility] [address] [address] 8254 Dec, Via [employer] [address] [place] [id number] Dec, Peripheral vascular disease I73.9 ; 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 ; Other chronic pain G89.29 ; Anxiety F41.9 ; Reactive depression F32.9 ; Insomnia G47.00 and Type 2 diabetes mellitus without complication, without long-term current use of insulin E11.9 [facility] [address] [id number] [place] [address] Nov [facility] [id number] [address] Nov, Anxiety F41.9 [facility] [id number] [address] Nov, [facility] [address] [id number] [place] [address] [id number] Nov, Anxiety F41.9 [facility] [employer] [employer] [address] [place] [address] Nov, Status post surgery Z98.890 ; Confused R41.0 ; Anxiety F41.9 and Other chronic pain G89.29 [facility] [address] [id number] [address] Nov, Other chronic pain G89.29 [facility] [id number] 8756 Oct, [facility] [id number] [place] [address] [id number] Oct, Other chronic pain G89.29 [facility] [id number] [address] 2546 Oct, Anxiety F41.9 [facility] [address] [id number] [place] [address] Sep, Other chronic pain G89.29 [facility] [id number] [place] [address] [id number] Sep, [facility] [employer] [place] [employer] [address] [place] [id number] Aug, Dysuria R30.0 and Anxiety F41.9 [facility] [id number] [address] 0608 Aug, [facility] [id number] [address] Aug, Other chronic pain G89.29 [facility] [id number] [address] 1716 Jul, Other chronic pain G89.29 [facility] [id number] [address] Jun, [facility] [id number] [address] Jun, Other chronic pain G89.29 [facility] [address]005[address]100[place] [address]- 8625 Jun, [facility] [address] [address] May, Other chronic pain G89.29 [facility] [address] [place] [address] 66553- 0964 Apr, Other chronic pain G89.29 [facility] [employer] [address] [place] [id number] Apr, Reactive depression F32.9 and Pharyngeal dysphagia R13.13 [facility] [id number] [address] 1100 Apr, Urinary tract infection without hematuria, site unspecified N39.0 [facility] [address]005[address]100[place] [address]- 0276 March, Other chronic pain G89.29 [facility] [id number] [address] 3458 Feb, Other chronic pain G89.29 [facility] [id number] [address]- 4710 Feb, [facility] [id number] [address] Feb, [facility] [employer] [address] [place] [id number] Feb, Dysuria R30.0 and Ventral hernia without obstruction or gangrene K43.9 [facility] [address] [place] [id number] [place] [address] 16612096- 1792 Jan, Other chronic pain G89.29 [facility] [address] [id number] [place] [address] [id number] Dec, Other chronic pain G89.29 [facility] [id number] [place] [address] 23192- 9146 Nov, Other chronic pain G89.29 Via [employer] [address] [place] [id number] Nov, Lymphadenitis I88.9 [facility] [address] [place] [id number] [place] [address] 92671- 6717 Nov, Other chronic pain G89.29 [facility] [address] [place] [id number] [place] [address] 53821- 2242 Nov, [facility] [id number] [place] [address] [id number] Nov, Other chronic pain G89.29 [facility] [employer] [address] [place] [id number] Oct, Low back pain M54.5 ; Hypertension I10 and Type 2 diabetes mellitus without complication, without long-term current use of insulin E11.9 [facility] [address] [place] [address] 94693- 8511 Oct, [facility] [id number] [place] [address] 43857- 3905 Oct, [facility] [address] [place] [id number] [place] [address] 11058- 5753 Oct, [facility] [address] [place] [id number] [place] [address] [id number]- 4827 Oct, [facility] [address] [place] [id number] [place] [address] 53097- 3356 Sep, [facility] [address] [facility] [id number] [address]- 1691 Sep, [facility] [address] [place] [address] 33383- 8815 Aug, Other chronic pain G89.29 [facility] [address] [facility] [id number] [address]- 6961 Jul, [facility] [address] [facility] [id number] [place] [address] 60419- 4314 Jul, [facility] [address] [facility] [id number] [place] [address] 45353- 0450 Jul, [facility] [address] [place] [address] 58552- 1005 Jun, [facility] [address] [place] [address] 28403- 8879 Jun, [facility] [address] [place] [id number] Jun, Low back pain M54.5 ; Other chronic pain G89.29 and Coronary artery disease I25.10 [facility] [address]005[address]100[place] [address]- 5731 Jun, [facility] [address]100[place] [address]- 5190 May, [facility] [address] [place] [address] 05152- 8266 May, [facility] [address] [id number] [address]- 9359 May, Other chronic pain G89.29 [facility] [address] [address]- 2276 May, [facility] [address] [id number] [address]- 5172 Apr, [facility] [address] [place] [address] 39023- 9174 17 Apr, 2016 Acute cystitis without hematuria N30.00 [facility] [address] [address]- 5335 16 Apr, 2016 Acute cystitis without hematuria N30.00 ; Coronary artery disease I25.10 ; Low back pain M54.5 and Other chronic pain G89.29 [facility] [address]100[place] [address]- 1696 Apr, Other chronic pain G89.29 [facility] [id number] [place] [address] 21932- 0190 March, Other chronic pain G89.29 [facility] [id number] [place] [address] 15103- 2321 18 Feb, 2016 [facility] [id number] [place] [address] 21936- 8542 Feb, Arthritis M19.90 [facility] [address] [id number] [place] [address] 73223- 6958 Feb, [facility] [address] [place] [address] 08788- 2851 Jan, [facility] [address] [address]- 7691 Jan, [facility] [address] [address]- 8531 Jan, Other chronic pain G89.29 [facility] [address] [address]- 1332 Jan, Hypertension I10 ; Coronary artery disease I25.10 and Insomnia G47.00 [facility] [address] [address]- 7506 Jan, [facility] [address] [address]- 6614 29 Dec, 2015 Right hip pain M25.551 [facility] [id number] [address]- 6594 Dec, [facility] [address] [id number] [address]- 4796 Dec, [facility] [address] [facility] [id number] [address] 2546 Dec, [facility] [id number] [place] [address] 10857 254 Dec, Other chronic pain G89.29 [facility] [address] [facility] [id number] [address]- 2304 Dec, [facility] [address] [place] [address] 43966- 9702 Nov, [facility] [address] [place] [address] 98405- 5631 Nov, Other chronic pain G89.29 [facility] [address] [address]- 1400 Nov, Right hip pain M25.551 and Coronary artery disease I25.10 [facility] [address] [address]- 5403 Nov, Other chronic pain G89.29 [facility] [address] [address]- 9326 Oct, [facility] [address] [address]- 6979 Oct, [facility] [address] [address]- 8772 Sep, [facility] [address] [address]- 2544 Sep, [facility] [address] [address]- 8108 Aug, [facility] [address] [address]- 5310 Aug, Hypertension I10 ; Coronary artery disease I25.10 and Arthritis M19.90 [facility] [address] [id number] [place] [address]- 6992 Jun, [facility] [address] [id number] [address]- 8137 Jun, Essential hypertension, benign 401.1 ; Other chronic pain 338.29 and Chronic airway obstruction, not elsewhere classified 496 [facility] [address] [id number] [place] [address]- 0201 Jun, [facility] [address] [facility] [id number] [place] [address], [place] [address]- 6184 Jun, [facility] [address] [facility] [id number] [place] [address]- 8835 Jun, [facility] [id number] [address]- 9944 May, [facility] [address] [id number] [address]- 1517 May, [facility] [address] [place] [address]- 5553 Apr, [facility] [address] [id number] [address]- 0732 Apr, [facility] [id number] [address]- 7728 Apr, [facility] [address] [id number] [address]- 7191 March, [facility] [address] [id number] [place] [address]- 3530 March, [facility] [address] [id number] [place] [address]- 5655 March, [facility] [address] [id number] [address]- 9544 March, [facility] [address] [id number] [place] [address]- 0643 March, Sialadenitis 527.2 [facility] [address] [id number] [place] [address]- 6319 Feb, [facility] [address] [facility] [id number] [place] [address]- 8734 Feb, [facility] [address] [id number] [place] [address]- 9769 Feb, [facility] [address] [id number] [place] [address]- 0514 Feb, [facility] [address] [id number] [place] [address]- 9199 Feb, [facility] [address] [id number] [place] [address]- 5908 Jan, [facility] [address] [id number] [place] [address]- 1471 Jan, [facility] [address] [id number] [place] [address]- 0811 Jan, [facility] [address] [id number] [place] [address]- 6919 Jan, [facility] [address] [id number] [place] [address]- 5256 Jan, [facility] [address] [id number] [address]- 4079 Jan, [facility] [address] [id number] [place] [address]- 9671 Dec, [facility] [address] [id number] [place] [address]- 3686 Dec, [facility] [address] [id number] [place] [address]- 7514 Dec, [facility] [address] [id number] [place] [address]- 1892 10 Dec, 2014 [facility] [address] [id number] [place] [address]- 4075 Dec, [facility] [place] [facility] [address] [id number] [place] [address]- 9996 Dec, [facility] [place] [facility] [address] [id number] [place] [address]- 0871 Nov, [facility] [place] [facility] [address] [id number] [place] [address]- 8528 Nov, [facility] [place] [facility] [address] [id number] [place] [address]- 2127 Nov, [facility] [place] [facility] [address] [id number] [place] [address]- 4204 Nov, [facility] [place] [facility] [address] [id number] [place] [address]- 3491 Nov, [facility] [address] [id number] [place] [address]- 5539 Nov, [facility] [place] [facility] [address] [id number] [place] [address]- 2243 Nov, [facility] [place] [facility] [address] [id number] [place] [address]- 4883 Nov, [facility] [place] [facility] [address] [id number] [place] [address]- 0189 Nov, [facility] [place] [facility] [address] [id number] [place] [address]- 8520 Nov, [facility] [place] [facility] [address] [id number] [place] [address]- 3909 Nov, [facility] [place] [facility] [address] [id number] [place] [address]- 1896 Nov, [facility] [place] [facility] [address] [id number] [place] [address]- 2992 Nov, [facility] [place] [facility] [address] [id number] [place] [address]- 4374 Nov, [facility] [place] [facility] [address] [id number] [place] [address]- 5528 Oct, [facility] [place] [facility] [address] [id number] [place] [address]- 1412 Oct, [facility] [place] [facility] [address] [id number] [place] [address]- 5780 Oct, [facility] [place] [facility] [address] [id number] [place] [address]- 2057 Oct, [facility] [place] [facility] [address] [id number] [place] [address]- 1429 Oct, [facility] [place] [facility] [address] [id number] [place] [address]- 8709 Oct, [facility] [place] [facility] [address] [id number] [place] [address]- 5162 Oct, [facility] [place] [facility] [address] [id number] [place] [address]- 0000 Oct, [facility] [place] [facility] [address] [id number] [place] [address]- 0744 Oct, [facility] [place] [facility] [address] [id number] [place] [address]- 4410 Sep, [facility] [place] [facility] [address] [id number] [place] [address]- 3273 Sep, [facility] [place] [facility] [address] [id number] [place] [address]- 6952 Sep, [facility] [place] [facility] [address] [id number] [place] [address]- 3625 Sep, [facility] [place] [facility] [address] [id number] [place] [address]- 4910 Sep, [facility] [place] [facility] [address] [id number] [place] [address]- 4521 Sep, [facility] [place] [facility] [address] [id number] [place] [address]- 1609 Sep, [facility] [place] [facility] [address] [id number] [place] [address]- 7379 Sep, [facility] [place] [facility] [address] [id number] [place] [address]- 6826 Sep, [facility] [place] [facility] [address] [id number] [place] [address]- 0574 Sep, [facility] [place] [facility] [address] [id number] [place] [address]- 9602 Sep, [facility] [place] [facility] [address] [id number] [place] [address]- 0258 Sep, [facility] [place] [facility] [address] [id number] [place] [address]- 3185 Aug, [facility] [place] [facility] [address] [id number] [place] [address]- 3699 Aug, [facility] [place] [facility] [address] [id number] [place] [address]- 9878 Aug, [facility] [place] [facility] [address] [facility] [id number] [place] [address]- 0602 Aug, [facility] [place] [facility] [address] [id number] [place] [address]- 7093 Aug, [facility] [place] [facility] [address] [id number] [place] [address]- 0689 Aug, [facility] [place] [facility] [address] [id number] [place] [address]- 7622 Aug, [facility] [place] [facility] [address] [id number] [place] [address]- 6534 Aug, [facility] [place] [facility] [address] [facility] [facility] [id number] [place] [address] 30 Jul, 2014 [facility] [place] [facility] [address] [id number] [place] [address] 30 Jul, 2013 [facility] [place] [facility] [address] [id number] [place] [address] 30 Jul, 2013 [facility] [place] [facility] [address] [id number] [place] [address] 30 Jul, 2013 [facility] [place] [facility] [address] [id number] [place] [address] 25 Jul, 2013 [facility] [place] [facility] [address] [id number] [place] [address] 25 Jul, 2013 [facility] [place] [facility] [address] [id number] [place] [address] 15 Jul, 2014 [facility] [place] [facility] [address] [id number] [place] [address] Jul, 2013 [facility] [place] [facility] [address] [id number] [place] [address] Jul, [facility] [place] [facility] [address] [id number] [place] [address] Jul, [facility] [place] [facility] [address] [id number] [place] [address] Jun, [facility] [place] [facility] [address] [id number] [place] [address] Jun, [facility] [place] [facility] [address] [id number] [place] [address] Jun, [facility] [place] [facility] [address] [id number] [place] [address] Jun, [facility] [place] [facility] [address] [id number] [place] [address] Jun, [facility] [place] [facility] [address] [id number] [place] [address] Jun, [facility] [place] [facility] [address] [id number] [place] [address] Jun, [facility] [place] [facility] [address] [id number] [place] [address] Jun, [facility] [place] [facility] [address] [id number] [place] [address] Jun, [facility] [place] [facility] [address] [id number] [place] [address] Jun, [facility] [place] [facility] [address] [id number] [place] [address] Jun, [facility] [place] [facility] [address] [id number] [place] [address] Jun, [facility] [place] [facility] [address] [id number] [place] [address] Jun, [facility] [place] [facility] [address] [id number] [place] [address] Jun, [facility] [place] [facility] [address] [id number] [place] [address] Jun, [facility] [place] [facility] [address] [id number] [place] [address] Jun, [facility] [place] [facility] [address] [id number] [place] [address] Jun, [facility] [place] [facility] [address] [id number] [place] [address] Jun, [facility] [place] [facility] [address] [id number] [place] [address] Jun, [facility] [place] [facility] [address] [id number] [place] [address] Jun, [facility] [place] [facility] [address] [id number] [place] [address] Jun, [facility] [place] [facility] [address] [id number] [place] [address] Jun, [facility] [place] [facility] [address] [id number] [place] [address] May, 2013 [facility] [place] [facility] [address] [id number] [place] [address] May, [facility] [place] [facility] [address] [id number] [place] [address] May, [facility] [place] [facility] [address] [id number] [place] [address] May, [facility] [place] [facility] [address] [id number] [place] [address] May, [facility] [place] [facility] [address] [address] [id number] [place] [address] May, [facility] [place] [facility] [address] [id number] [place] [address] 97[address] May, [facility] [place] [facility] [address] [id number] [place] [address] 2746 May, [facility] [place] [facility] [address] [id number] [place] [address]11 May, [facility] [place] [facility] [address] [id number] [place] [address] 2508 May, [facility] [place] [facility] [address] [id number] [place] [address] 2864 May, [facility] [place] [facility] [address] [id number] [place] [address] 8325 May, [facility] [place] [facility] [address] [id number] [place] [address] 1141 May, [facility] [place] [facility] [address] [id number] [place] [address]- 5448 Apr, [facility] [place] [facility] [address] [id number] [place] [address]- 7075 Apr, [facility] [place] [facility] [address] [id number] [place] [address] 5384 Apr, [facility] [place] [facility] [address] [id number] [place] [address] 1530 Apr, [facility] [place] [facility] [address] [id number] [place] [address]- 4635 Apr, [facility] [place] [facility] [address] [id number] [place] [address]- 9728 Apr, [facility] [place] [facility] [address] [id number] [place] [address]- 5667 Apr, [facility] [place] [facility] [address] [id number] [place] [address] 8941 Apr, [facility] [place] [facility] [address] [id number] [place] [address]- 7622 Apr, [facility] [place] [facility] [address] [id number] [place] [address] 2660 March, [facility] [place] [facility] [address] [id number] [place] [address]- 9301 March, [facility] [place] [facility] [address] [id number] [place] [address] 2771 March, [facility] [place] [facility] [address] [id number] [place] [address]- 2784 March, [facility] [place] [facility] [address] [id number] [place] [address]- 0558 March, [facility] [place] [facility] [address] [id number] [place] [address]- 7637 March, [facility] [place] [facility] [address] [id number] [place] [address] 9369 March, [facility] [place] [facility] [address] [id number] [place] [address]- 7736 March, [facility] [place] [facility] [address] [id number] [place] [address]- 3517 March, [facility] [place] [facility] [address] [id number] [place] [address]- 1532 March, [facility] [address] [id number] [place] [address] 0801 March, [facility] [place] [facility] [address] [id number] [place] [address] March, [facility] [place] [facility] [address] [id number] [place] [address]- 2910 March, [facility] [place] [facility] [address] [id number] [place] [address]- 4261 March, [facility] [place] [facility] [address] [id number] [place] [address] 3970 March, [facility] [place] [facility] [address] [id number] [place] [address]- 8839 March, [facility] [place] [facility] [address] [id number] [place] [address]- 7860 March, [facility] [place] [facility] [address] [id number] [place] [address]- 4067 March, [facility] [place] [facility] [address] [id number] [place] [address]- 8490 March, [facility] [place] [facility] [address] [id number] [place] [address]- 9036 March, [facility] [place] [facility] [address] [id number] [place] [address]- 5087 Feb, [facility] [place] [facility] [address] [id number] [place] [address]- 8863 Feb, [facility] [place] [facility] [address] [id number] [place] [address]- 1757 Feb, [facility] [place] [facility] [address] [id number] [place] [address]- 8207 Feb, [facility] [place] [facility] [address] [id number] [place] [address]- 9179 Feb, [facility] [place] [facility] [address] [id number] [place] [address]- 4589 17 Feb, 2014 [facility] [place] [facility] [address] [id number] [place] [address]- 8282 Feb, [facility] [place] [facility] [address] [id number] [place] [address] Feb, [facility] [place] [facility] [address] [id number] [place] [address]- 6128 Jan, [facility] [place] [facility] [address] [id number] [place] [address]- 6315 Jan, [facility] [place] [facility] [address] [id number] [place] [address]- 0920 Jan, [facility] [place] [facility] [address] [id number] [place] [address]- 5079 Jan, [facility] [place] [facility] [address] [id number] [place] [address]- 6020 Jan, [facility] [place] [facility] [address] [id number] [place] [address]- 1003 Jan, [facility] [place] [facility] [address] [id number] [place] [address]- 7009 Jan, [facility] [place] [facility] [address] [id number] [place] [address]- 9686 Jan, [facility] [place] [facility] [address] [id number] [place] [address]- 0660 Jan, [facility] [place] [facility] [address] [id number] [place] [address]- 3251 Jan, [facility] [place] [facility] [address] [id number] [place] [address]- 5811 Dec, [facility] [place] [facility] [address] [id number] [place] [address]- 6286 Dec, [facility] [place] [facility] [address] [id number] [place] [address]- 1863 Dec, [facility] [place] [facility] [address] [id number] [place] [address]- 4703 Dec, [facility] [place] [facility] [address] [id number] [place] [address]- 6688 Dec, [facility] [place] [facility] [address] [id number] [place] [address]- 1506 Dec, [facility] [place] [facility] [address] [id number] [place] [address]- 4200 Dec, [facility] [place] [facility] [address] [id number] [place] [address]- 3511 Dec, [facility] [place] [facility] [address] [id number] [place] [address]- 1204 Nov, [facility] [place] [facility] [address] [id number] [place] [address]- 5283 Nov, [facility] [place] [facility] [address] [id number] [place] [address]- 5773 Nov, [facility] [place] [facility] [address] [id number] [place] [address]- 7925 Nov, [facility] [place] [facility] [address] [id number] [place] [address]- 1313 Nov, [facility] [place] [facility] [address] [id number] [place] [address]- 9316 Nov, [facility] [place] [facility] [address] [id number] [place] [address]- 3756 Nov, [facility] [place] [facility] [address] [id number] [place] [address]- 8662 Nov, [facility] [place] [facility] [address] [id number] [place] [address]- 7229 Nov, [facility] [place] [facility] [address] [id number] [place] [address]- 9850 Nov, [facility] [place] [facility] [address] [id number] [place] [address]- 4271 Nov, [facility] [address] [id number] [place] [address]- 8609 Nov, [facility] [address] [id number] [place] [address]- 9876 Nov, [facility] [address] [id number] [place] [address]- 8279 Oct, [facility] [address] [id number] [place] [address]- 3760 Oct, [facility] [address] [id number] [place] [address]- 0726 Oct, [facility] [address] [id number] [place] [address] Oct, [facility] [address] [id number] [place] [address]- 0041 Oct, [facility] [address] [id number] [place] [address]- 3822 Oct, [facility] [address] [id number] [place] [address]- 3180 Oct, [facility] [address] [id number] [place] Oct, [facility] [address] [id number] [place] [address]- 2264 Oct, [facility] [address] [id number] [place] [address]- 2116 17 Oct, 2013 [facility] [place] [facility] [address] [id number] [place] [address]- 5796 Oct, [facility] [address] [id number] [place] [address]- 2546 Oct, [facility] [address] [id number] [place] [address]- 6074 Oct, [facility] [place] [facility] [address] [id number] [place] [address]- 8551 Oct, [facility] [place] [facility] [address] [id number] [place] [address]- 2063 Sep, [facility] [place] [facility] [address] [id number] [place] [address]- 3235 Sep, [facility] [place] [facility] [address] [id number] [address]- 6071 Sep, [facility] [place] [facility] [address] [id number] [place] [address]- 5883 Sep, [facility] [place] [facility] [address] [id number] [address]- 9549 Sep, [facility] [place] [facility] [address] [id number] [place] [address]- 5589 Sep, [facility] [place] [facility] [address] [id number] [address]- 8859 Sep, [facility] [place] [facility] [address] [id number] [address]- 9576 Sep, [facility] [place] [facility] [address] [id number] [address]- 4607 Sep, [facility] [place] [facility] [address] [id number] [place] [address]- 7627 Sep, [facility] [place] [facility] [address] [id number] [address]- 2504 Aug, [facility] [place] [facility] [address] [id number] [place] [address]- 7963 Aug, [facility] [place] [facility] [address] [id number] [address]- 2277 Aug, [facility] [place] [facility] [address] [id number] [place] [address]- 6222 Aug, [facility] [place] [facility] [address] [id number] [place] [address]- 2776 23 Aug, 2012 [facility] [place] [facility] [address] [id number] [place] [address]- 5605 23 Aug, 2012 [facility] [place] [facility] [address] [id number] [place] [address]- 1451 23 Aug, 2012 [facility] [place] [facility] [address] [id number] [place] [address]- 5157 23 Aug, 2012 [facility] [place] [facility] [address] [id number] [place] [address]- 3415 22 Aug, 2012 [facility] [place] [facility] [address] [id number] [place] [address]- 9366 22 Aug, 2012 [facility] [place] [facility] [address] [id number] [place] [address]- 4234 18 Aug, 2012 [facility] [place] [facility] [address] [id number] [place] [address]- 3304 18 Aug, 2012 [facility] [place] [facility] [address] [id number] [place] [address]- 7712 18 Aug, 2012 [facility] [place] [facility] [address] [id number] [place] [address]- 8854 18 Aug, 2012 [facility] [place] [facility] [address] [id number] [place] [address]- 3071 17 Aug, 2012 [facility] [place] [facility] [address] [id number] [place] [address]- 2692 14 Aug, 2012 [facility] [place] [facility] [address] [id number] [address]- 9285 14 Aug, 2012 [facility] [place] [facility] [address] [id number] [place] [address]- 0941 Aug, 2012 [facility] [place] [facility] [address] [id number] [place] [address]- 3130 20 Jul, 2012 [facility] [place] [facility] [address] [id number] [address]- 3958 19 Jul2012 [facility] [place] [facility] [address] [id number] [place] [address]- 7944 18 Jul, 2013 [facility] [place] [facility] [address] [id number] [place] [address]- 1954 Jul, [facility] [place] [facility] [address] [id number] [place] [address]- 7074 Jul, [facility] [place] [facility] [address] [id number] [place] [address]- 1041 Jun, [facility] [place] [facility] [address] [id number] [place] [address]- 9417 Jun, [facility] [place] [facility] [address] [id number] [place] [address]- 9170 Jun, [facility] [place] [facility] [address] [id number] [place] [address]- 3718 Jun, [facility] [place] [facility] [address] [id number] [place] [address]- 4217 Jun, [facility] [place] [facility] [address] [id number] [place] [address]- 1780 Jun, [facility] [place] [facility] [address] [id number] [place] [address]- 3291 Jun, [facility] [place] [facility] [address] [id number] [place] [address]- 2896 Jun, [facility] [place] [facility] [address] [id number] [place] [address]- 0624 Jun, [facility] [place] [facility] [address] [id number] [place] [address]- 6325 Jun, [facility] [place] [facility] [address] [id number] [place] [address]- 0120 May, [facility] [place] [facility] [address] [id number] [place] [address]- 5105 May, [facility] [place] [facility] [address] [id number] [place] [address]- 7048 May, [facility] [place] [facility] [address] [id number] [place] [address]- 5320 May, [facility] [place] [facility] [address] [id number] [place] [address]- 1018 May, [facility] [place] [facility] [address] [id number] [place] [address]- 5323 May, [facility] [place] [facility] [address] [id number] [place] [address]- 3978 May, [facility] [place] [facility] [address] [id number] [place] [address]- 3425 May, [facility] [place] [facility] [address] [id number] [place] [address]- 9314 May, [facility] [place] [facility] [address] [id number] [place] [address]- 4023 Apr, [facility] [place] [facility] [address] [id number] [place] [address]- 2495 Apr, [facility] [place] [facility] [address] [id number] [place] [address]- 7711 Apr, [facility] [place] [facility] [address] [id number] [place] [address]- 2484 Apr, [facility] [place] [facility] [address] [id number] [place] [address]- 5922 Apr, [facility] [place] [facility] [address] [id number] [address]- 6822 Apr, [facility] [place] [facility] [address] [id number] [place] [address]- 1605 Apr, [facility] [place] [facility] [address] [id number] [place] [address]- 8364 March, [facility] [place] [facility] [address] [id number] [place] [address]- 6723 Feb, [facility] [place] [facility] [address] [id number] [place] [address]- 7518 25 Feb, 2013 [facility] [address] [id number] [place] [address]- 1787 Feb, [facility] [address] [id number] [place] [address]- 1652 28 Jan, 2013 [facility] [address] [id number] [place] [address]- 6278 21 Jan, 2013 [facility] [address] [id number] [place] [address]- 5439 19 Jan, 2013 [facility] [address] [id number] [place] [address]- 4046 14 Jan, 2013 [facility] [address] [id number] [place] [address]- 2051 12 Jan, 2013 [facility] [address] [id number] [place] [address]- 0330 08 Jan, 2013 [facility] [address] [id number] [place] [address]- 9003 07 Jan, 2013 [facility] [address] [id number] [place] [address]- 5599 04 Jan, 2013 [facility] [address] [id number] [place] [address]- 5139 28 Dec, 2012 [facility] [address] [id number] [place] [address]- 8725 25 Dec, 2012 [facility] [address] [id number] [place] [address]- 9199 13 Dec, 2012 [facility] [place] [facility] [address] [id number] [place] [address]- 6362 11 Dec, 2012 [facility] [address] [id number] [place] [address] 2546 07 Dec, 2012 [facility] [address] [id number] [place] [address]- 5573 06 Dec, 2012 [facility] [address] [id number] [place] [address]- 6916 Dec, [facility] [place] [facility] [address] [id number] [place] [address]- 9556 Nov, [facility] [place] [facility] [address] [id number] [place] [address] 2546 Nov, [facility] [place] [facility] [address] [id number] [place] [address]- 9546 Nov, [facility] [place] [facility] [address] [id number] [place] [address]- 6356 Nov, [facility] [place] [facility] [address] [id number] [place] [address]- 1735 Nov, [facility] [place] [facility] [address] [id number] [place] [address]- 6936 Nov, [facility] [place] [facility] [address] [id number] [place] [address]- 2105 Nov, [facility] [place] [facility] [address] [id number] [place] [address]- 4713 Oct, [facility] [place] [facility] [address] [id number] [place] [address]- 3410 Oct, [facility] [place] [facility] [address] [id number] [place] [address]- 1231 Oct, [facility] [place] [facility] [address] [id number] [place] [address]- 2541 Oct, [facility] [place] [facility] [address] [id number] [place] [address]- 2546 Oct, [facility] [place] [facility] [address] [id number] [place] [address]- 7736 Oct, [facility] [place] [facility] [address] [id number] [place] [address]- 2546 Oct, [facility] [place] [facility] [address] [id number] [place] [address]- 8522 Oct, [facility] [place] [facility] [address] [id number] [place] [address]- 4036 Oct, [facility] [place] [facility] [address] [id number] [place] [address]- 9046 Oct, [facility] [place] [facility] [address] [id number] [place] [address]- 2057 Oct, [facility] [place] [facility] [address] [id number] [place] [address]- 3512 Oct, [facility] [place] [facility] [address] [id number] [place] [address]- 6221 Sep, [facility] [place] [facility] [address] [id number] [place] [address]- 3100 Sep, [facility] [place] [facility] [address] [id number] [place] [address] Sep, [facility] [place] [facility] [address] [id number] [place] [address] Sep, [facility] [place] [facility] [address] [id number] [place] [address] Sep, [facility] [place] [facility] [address] [id number] [place] [address] Sep, [facility] [place] [facility] [address] [id number] [place] [address] Sep, [facility] [place] [facility] [address] [id number] [place] [address] Sep, [facility] [place] [facility] [address] [id number] [place] [address] Sep, [facility] [place] [facility] [address] [id number] [place] [address] Sep, [facility] [place] [facility] [address] [id number] [place] [address] Sep, [facility] [place] [facility] [address] [id number] [place] [address] Aug, [facility] [place] [facility] [address] [id number] [place] [address] Aug, [facility] [place] [facility] [address] [id number] [place] [address] Aug, [facility] [place] [facility] [address] [id number] [place] [address] Aug, [facility] [place] [facility] [address] [id number] [place] [address] Aug, [facility] [place] [facility] [address] [id number] [place] [address] Aug, [facility] [place] [facility] [address] [id number] [place] [address] 39[address] Aug, [facility] [place] [facility] [address] [id number] [place] [address] Aug, [facility] [place] [facility] [address] [id number] [place] [address] Aug, [facility] [place] [facility] [address] [id number] [place] [address]85 Aug, [facility] [place] [facility] [address] [id number] [place] [address] Jul, [facility] [place] [facility] [address] [id number] [address] 20 Jul, 2012 [facility] [place] [facility] [address] [id number] [place] [address] 10 Jul, 2012 [facility] [place] [facility] [address] [id number] [place] [address] 06 Jul, 2012 [facility] [place] [facility] [address] [id number] [place] [address] 30 Jun, 2012 [facility] [place] [facility] [address] [id number] [place] [address] Jun, [facility] [place] [facility] [address] [id number] [place] [address] Jun, [facility] [place] [facility] [address] [id number] [place] [address] 39[address] Jun, [facility] [place] [facility] [address] [id number] [place] [address] Jun, [facility] [place] [facility] [address] [id number] [place] [address] Jun, [facility] [place] [facility] [address] [id number] [place] [address]60 Jun, [facility] [place] [facility] [address] [id number] [place] [address] May, [facility] [place] [facility] [address] [id number] [place] [address] May, [facility] [place] [facility] [address] [id number] [place] [address] 269[address] May, [facility] [place] [facility] [address] [id number] [place] [address] May, [facility] [place] [facility] [address] [id number] [place] [address]268 May, [facility] [place] [facility] [address] [id number] [place] [address] Apr, [facility] [place] [facility] [address] [id number] [place] [address] 2016 Apr, [facility] [place] [facility] [address] [id number] [place] [address] Apr, [facility] [place] [facility] [address] [id number] [place] [address] Apr, [facility] [place] [facility] [address] [id number] [place] [address] Apr, [facility] [place] [facility] [address] [id number] [place] [address]- [address] March, [facility] [address] [id number] [place] [address] March, [facility] [address] [id number] [place] [address] March, [facility] [address] [id number] [place] [address] 2021 March, [facility] [address] [id number] [place] [address] March, [facility] [address] [id number] [place] [address] March, [facility] [address] [id number] [place] [address]- [address] March, [facility] [address] [id number] [place] [address] March, [facility] [address] [id number] [place] [address] March, [facility] [address] [id number] [place] [address] March, [facility] [address] [id number] [place] [address] Feb, [facility] [address] [id number] [place] [address] 6[address] Feb, [facility] [address] [id number] [place] [address] Feb, [facility] [address] [id number] [place] [address] Feb, [facility] [address] [id number] [place] [address] Feb, [facility] [address] [id number] [place] [address] Feb, [facility] [address] [id number] [place] [address]134 Feb, [facility] [place] [facility] [address] [id number] [place] [address] 46[address] Feb, [facility] [place] [facility] [address] [id number] [place] [address]- [address] Feb, [facility] [place] [facility] [address] [id number] [place] [address]- 2684 Jan, [facility] [place] [facility] [address] [id number] [place] [address]- [address] Jan, [facility] [place] [facility] [address] [id number] [place] [address]- [address]31 Jan, [facility] [place] [facility] [address] [id number] [place] [address]- [address]136 Jan, [facility] [place] [facility] [address] [id number] [place] [address]- 5435 Dec, [facility] [place] [facility] [address] [id number] [place] [address] Dec, [facility] [place] [facility] [address] [id number] [place] [address] Nov, [facility] [place] [facility] [address] [id number] [place] [address] Nov, [facility] [place] [facility] [address] [id number] [place] [address] Nov, [facility] [place] [facility] [address] [id number] [place] [address] Nov, [facility] [place] [facility] [address] [id number] [place] [address] Nov, [facility] [place] [facility] [address] [id number] [place] [address] Oct, [facility] [place] [facility] [id number] [address] Oct, [facility] [id number] [address] Oct, [facility] [id number] [address] Oct, [facility] [id number] [address] Oct, [facility] [id number] [address] Oct, [facility] [id number] [address] Oct, [facility] [id number] [address] Oct, [facility] [id number] [address] Sep, IMMUNIZATIONS No Known Immunizations SOCIAL HISTORY Never Assessed REASON FOR VISIT c/o bladder spasms PLAN OF CARE VITAL SIGNS MEDICATIONS Medication Instructions Dosage Frequency Start Date End Date Duration Status Oxybutynin Chloride 5 mg Orally Once a day 2 tablet 24h Jan,Jan 07 days Active RESULTS No Results PROCEDURES No Known procedures INSTRUCTIONS MEDICATIONS ADMINISTERED No Known Medications MEDICAL (GENERAL) HISTORY Type Description Date 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
[2018-09-04 11:55] LABS: BASOPHILS % (AUTO) 0 % (0-10); EOSINOPHILS # (AUTO) 0.3 10^3/uL (0.0-0.3); EOSINOPHILS % (AUTO) 3 % (0-10); HEMATOCRIT 41 % (35-52); HEMOGLOBIN 13.5 G/DL (11.5-16.0); LYMPHOCYTES # (AUTO) 1.7 X 10^3 (1.0-4.0); LYMPHOCYTES % (AUTO) 19 % (12-44); MEAN CORPUSCULAR HEMOGLOBIN 29 PG (25-34); MEAN CORPUSCULAR HGB CONC 33 G/DL (32-36); MEAN CORPUSCULAR VOLUME 90 FL (80-99); MEAN PLATELET VOLUME 10.2 FL (7.4-10.4); MONOCYTES # (AUTO) 0.7 X 10^3 (0.0-1.0); MONOCYTES % (AUTO) 7 % (0-12); NEUTROPHILS # (AUTO) 6.6 X 10^3 (1.8-7.8); NEUTROPHILS % (AUTO) 71 % (42-75); PLATELET COUNT 300 10^3/uL (130-400); RED BLOOD COUNT 4.62 10^6/uL (4.35-5.85); RED CELL DISTRIBUTION WIDTH 15.4 % (10.0-14.5); WHITE BLOOD COUNT 9.3 10^3/uL (4.3-11.0)
--- OUTSIDE RECORDS SUMMARY | 2018-09-04 11:55 | XMS REPORT ---
Author Author SHAHNAZ MARQUEZ [facility] Address [address] [place] [address] Care Team Providers Care Order Puller Name Role Phone SHAHNAZ MARQUEZ Unavailable PROBLEMS Type Condition ICD9-CM Code HYL33-YU Code Onset Dates Condition Status SNOMED Code Problem Other chronic pain G89.29 Active 29377178 Problem Type 2 diabetes mellitus without complication, without long-term current use of insulin E11.9 Active 649050705 Problem Low back pain M54.5 Active 344109544 Problem Hypertension I10 Active 21178504 Problem Coronary artery disease I25.10 Active 68797979 Problem Hyperlipidemia E78.5 Active 04195752 Problem Peripheral vascular disease I73.9 Active 040474824 Problem Insomnia G47.00 Active 063234745 Problem Reactive depression F32.9 Active 72028727 Problem Ventral hernia without obstruction or gangrene K43.9 Active 207213433 Problem Anxiety F41.9 Active 69809420 Problem Pharyngeal dysphagia R13.13 Active [id number] ALLERGIES No Information ENCOUNTERS Encounter Location Date Diagnosis [facility] [id number] [place] [address]290- 7368 March, [facility] [id number] [place] [address] 12804- 1499 March, [facility] [id number] [place] [address] 96419- 2272 Feb, [facility] [address] [address]- [address] Feb, Other chronic pain G89.29 [facility] [address] [facility] [place] [id number] Feb, Other chronic pain G89.[address] [facility] [address] [address] Feb, [facility] [address] [id number] [address] Jan, [facility] [address] [id number] [address] [address] Jan, [facility] [address] [id number] [address] [address] Jan, [facility] [address] [id number] [address] 4692 Jan, 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 [id number] [address] Nov, Anxiety F41.9 [facility] [address] [facility] [id number] [address] Nov, [facility] [id number] [id number] Nov, Anxiety F41.9 [facility] [address] [facility] [place] [id number] Nov, Status post surgery Z98.890 ; Confused R41.0 ; Anxiety F41.9 and Other chronic pain G89.29 [facility] [address] [id number] [id number] Nov, Other chronic pain G89.29 [facility] [address] [id number] [address] 2546 Oct, [facility] [address] [id number][place] [id number] Oct, Other chronic pain G89.29 [facility] [address] [facility] [id number] [address] 2546 Oct, Anxiety F41.9 [facility] [id number] [place] [id number] Sep, Other chronic pain G89.29 [facility] [address] [id number][place] [address] Sep, Via [facility] [address] [place] [id number] Aug, Dysuria R30.[address] [facility] [address]00565100[place] [address] 25[address] Aug, [facility] [id number] [place] [id number] Aug, Other chronic pain G89.29 [facility] [id number] [place] [address] 30141- 9536 Jul, Other chronic pain G89.29 [facility] [address] [id number][place] [address] Jun, [facility] [id number] [place] [id number] Jun, Other chronic pain G89.29 [facility] [address] [facility] [id number] [address] Jun, [facility] [address] [facility] [id number], [place] [address] 9146 May, Other chronic pain G89.29 [facility] [address] [facility] [id number][place] [address] 2546 Apr, Other chronic pain G89.29 Via [facility] [address] [place] [id number] Apr, Reactive depression F32.9 and Pharyngeal dysphagia R13.13 [facility] [address]00565100[place] [address] 1210 Apr, Urinary tract infection without hematuria, site unspecified N39.0 [facility] [address]00565100[place], [place] [address] 5880 March, Other chronic pain G89.29 [facility] [id number] [place] [address] 94435- 7270 Feb, Other chronic pain G89.29 [facility] [id number] [place] [address] 34128- 5249 Feb, [facility] [id number] [place] [address] [id number] Feb, Via [facility] [address] [place] [id number] Feb, Dysuria R30.0 and Ventral hernia without obstruction or gangrene K43.9 [facility] [address] [place] [address] 64453- 4337 Jan, Other chronic pain G89.29 [facility] [id number] [place] [address] [id number] Dec, Other chronic pain G89.29 [facility] [address] [place] [address] 65615- 2330 Nov, Other chronic pain G89.29 Via [facility] [address] [place] [id number] Nov, Lymphadenitis I88.9 [facility] [address] [place] [address] 18617- 5724 Nov, Other chronic pain G89.29 [facility] [id number] [place] [address] 93018- 1076 Nov, [facility] [id number] [place] [address] [id number] Nov, Other chronic pain G89.29 Via [facility] [address] [place] [id number] Oct, Low back pain M54.5 ; Hypertension I10 and Type 2 diabetes mellitus without complication, without long-term current use of insulin E11.9 [facility] [address] [id number] [address]- 7715 Oct, [facility] [address] [facility] [id number] [place] [address] 60855- 3726 Oct, [facility] [address] [facility] [id number] [place] [address] 44247- 9436 Oct, [facility] [address] [facility] [id number] [place] [address] 88970- 6748 Oct, [facility] [id number] [place] [address] 69030- 6312 Sep, [facility] [id number] [place] [address] 39469- 5829 Sep, [facility] [id number] [place] [address] 03103- 5360 Aug, Other chronic pain G89.29 [facility] [id number] [place] [address] 91522- 2548 Jul, [facility] [address] [id number] [address] 6235 Jul, [facility] [address] [place] [address] 71643- 2543 Jul, [facility] [address] [facility] [id number] [place] [address] 43051- 2548 Jun, [facility] [id number] [place] [address] 06102- 2547 Jun, Via [facility] [address] [place] [id number] Jun, Low back pain M54.5 ; Other chronic pain G89.29 and Coronary artery disease I25.10 [facility] [address] [facility] [id number] [address]- 0148 Jun, [facility] [address] [facility] [id number] [address] 4336 May, [facility] [address] [facility] [id number] [address]- 0146 May, [facility] [id number] [place] [address] 79203- 4407 May, Other chronic pain G89.29 [facility] [address] [facility] [id number] [address]- 1858 May, [facility] [id number] [place] [address] 97287- 3801 Apr, [facility] [address] [address]- 1468 Apr, Acute cystitis without hematuria N30.00 [facility] [address], [place] [address]- 4117 16 Apr, 2016 Acute cystitis without hematuria N30.00 ; Coronary artery disease I25.10 ; Low back pain M54.5 and Other chronic pain G89.29 [facility] [address]00565100[place] [address]- 6017 Apr, Other chronic pain G89.29 [facility] [address] [address]- 4009 March, Other chronic pain G89.29 [facility] [address] [address]- 8152 18 Feb, 2016 [facility] [address], [place] [address]- 4205 Feb, Arthritis M19.90 [facility] [address] [address]- 0937 Feb, [facility] [address]00565[address] [address]- 2628 Jan, [facility] [address]005[address] [address]- 9680 Jan, [facility] [id number] [place] [address] 31571- 2585 Jan, Other chronic pain G89.29 [facility] [id number] [place] [address] 29124- 1128 Jan, Hypertension I10 ; Coronary artery disease I25.[address] [facility] [address] [place] [address] 41275- 9741 Jan, [facility] [id number] [place] [address] 54922- 3673 Dec, Right hip pain M25.551 [facility] [id number] [place] [address] 84071- 6480 Dec, [facility] [address]00565[address] [address]- 0950 Dec, [facility] [address] [place] [address] 66583- 8581 Dec, [facility] [address] [address]- 2084 Dec, Other chronic pain G89.29 [facility] [address] [address]- 5806 Dec, [facility] [address], [place] [address] 2545 Nov, [facility] [address] [address] 2544 Nov, Other chronic pain G89.29 [facility] [address], [place] [address]- 254 Nov, Right hip pain M25.551 and Coronary artery disease I25.10 [facility] [address], [place] [address]- 5353 Nov, Other chronic pain G89.29 [facility] [id number] [place] [address] 83474- 2336 Oct, [facility] [id number] [place] [address] 52080- 1592 Oct, [facility] [id number] [place] [address] 24003- 6052 Sep, [facility] [id number] [place] [address] 09448- 3588 Sep, [facility] [id number] [place] [address] 93992- 7290 Aug, [facility] [id number] [place] [address] 28151- 5214 Aug, Hypertension I10 ; Coronary artery disease I25.[address] [facility] [id number] [place] [address] 09728- 2727 Jun, [facility] [id number] [place] [address] 52580- 4248 Jun, Essential hypertension, benign 401.1 ; Other chronic pain 338.29 and Chronic airway obstruction, not elsewhere classified 496 [facility] [address] [address]- 0952 Jun, [facility] [address]00565100[place] [address]- 6854 Jun, [facility] [id number] [place] [address] 37789- 5869 Jun, [facility] [address]00565100[place] [address]- 1714 May, [facility] [address]00565[address] [address] 8823 May, [facility] [address] [id number] [place] [address]- 0693 Apr, [facility] [address] [id number] [place] [address]- 2945 Apr, [facility] [address] [id number] [place] [address]- 5934 Apr, [facility] [address] [id number] [place] [address]- 0157 March, [facility] [address] [id number] [place] [address]- 2072 March, [facility] [address] [id number] [place] [address]- 1275 March, [facility] [address] [id number] [place] [address]- 4026 March, [facility] [address] [id number] [place] [address]- 4279 March, Sialadenitis 527.2 [facility] [address] [id number] [place] [address]- 7428 Feb, [facility] [address] [id number] [place] [address]- 1355 Feb, [facility] [address] [id number] [place] [address]- 1488 Feb, [facility] [address] [id number] [place] [address]- 3949 14 Feb, 2015 [facility] [address] [id number] [place] [address]- 7444 Feb, [facility] [address] [id number] [place] 9044 Jan, [facility] [address] [id number] [place] 5487 Jan, [facility] [address] [id number] [place] [address]- 2884 Jan, [facility] [place] [facility] [address] [id number] [place] [address]- 9051 Jan, [facility] [place] [facility] [address] [id number] [place] [address]- 4291 Jan, [facility] [place] [facility] [address] [id number] [place] [address]- 8905 Jan, [facility] [place] [facility] [address] [id number] [place] [address]- 6399 Dec, 2014 [facility] [place] [facility] [address] [id number] [place] [address]- 1488 Dec, 2014 [facility] [place] [facility] [address] [id number] [place] [address]- 1172 Dec, 2014 [facility] [place] [facility] [address] [id number] [place] [address]- 8656 Dec, 2014 [facility] [place] [facility] [address] [id number] [place] [address]- 4068 Dec, [facility] [place] [facility] [address] [id number] [place] [address]- 8305 Dec, [facility] [place] [facility] [address] [facility] [id number] [place] [address]- 4422 Nov, [facility] [place] [facility] [address] [id number] [place] [address]- 1572 Nov, [facility] [place] [facility] [address] [id number] [place] [address]- 2821 Nov, [facility] [place] [facility] [address] [id number] [place] [address]- 2754 Nov, [facility] [place] [facility] [address] [id number] [place] [address]- 6798 Nov, [facility] [place] [facility] [address] [id number] [place] [address]- 7266 Nov, [facility] [place] [facility] [address] [id number] [place] [address]- 0102 Nov, [facility] [address] [id number] [place] [address]- 7067 Nov, [facility] [place] [facility] [address] [id number] [place] [address]- 1495 Nov, [facility] [address] [id number] [place] [address]- 7742 Nov, [facility] [address] [id number] [place] [address]- 3465 Nov, [facility] [address] [id number] [place] [address]- 2556 Nov, [facility] [address] [id number] [place] [address]- 0636 Nov, [facility] [address] [id number] [place] [address]- 9186 Nov, [facility] [address] [id number] [place] [address]- 0809 Oct, [facility] [address] [id number] [place] [address]- 1173 Oct, [facility] [place] [facility] [address] [id number] [place] [address]- 4537 Oct, [facility] [place] [facility] [address] [id number] [place] [address]- 7471 18 Oct, 2014 [facility] [place] [facility] [address] [id number] [place] [address]- 4530 18 Oct, 2014 [facility] [place] [facility] [address] [id number] [place] [address]- 2817 17 Oct, 2014 [facility] [place] [facility] [address] [id number] [place] [address]- 1616 17 Oct, 2014 [facility] [place] [facility] [address] [id number] [place] [address]- 2723 Oct, [facility] [place] [facility] [address] [id number] [place] [address]- 5786 Oct, [facility] [place] [facility] [address] [id number] [place] [address]- 0901 Sep, [facility] [place] [facility] [address] [id number] [place] [address]- 3503 Sep, [facility] [place] [facility] [address] [id number] [place] [address]- 0334 Sep, [facility] [place] [facility] [address] [id number] [place] [address]- 5315 Sep, [facility] [place] [facility] [address] [id number] [place] [address]- 4225 Sep, [facility] [place] [facility] [address] [id number] [place] [address]- 6529 Sep, [facility] [place] [facility] [address] [id number] [place] [address]- 6183 Sep, [facility] [place] [facility] [address] [id number] [place] [address]- 6184 Sep, [facility] [place] [facility] [address] [id number] [place] [address]- 8296 Sep, [facility] [place] [facility] [address] [id number], [place] [address]- 7737 Sep, [facility] [place] [facility] [address] [id number], [place] [address]- 0076 Sep, [facility] [place] [facility] [address] [id number] [place] [address]- 2456 Sep, [facility] [place] [facility] [address] [id number] [place] [address]- 9367 Aug, [facility] [place] [facility] [address] [id number] [place] [address]- 6507 Aug, [facility] [place] [facility] [address] [id number] [place] [address]- 2294 29 Aug, 2013 [facility] [place] [facility] [address] [id number] [place] [address]- 7457 29 Aug, 2014 [facility] [place] [facility] [address] [id number] [place] [address]- 9558 28 Aug, 2014 [facility] [place] [facility] [address] [id number] [place] [address]- 5894 28 Aug, 2014 [facility] [place] [facility] [address] [id number] [place] [address]- 4633 17 Aug, 2014 [facility] [place] [facility] [address] [id number] [place] [address] 17 Aug, 2013 [facility] [place] [facility] [address] [id number] [place] [address] 30 Jul, 2013 [facility] [place] [facility] [address] [id number] [place] [address]44 30 Sep, 2013 [facility] [place] [facility] [address] [id number] [place] [address]- [address]45 30 Sep, 2013 [facility] [place] [facility] [address] [id number] [place] [address]- [address] 30 Sep, 2013 [facility] [place] [facility] [address] [id number] [place] [address]- [address]47 25 Sep, 2013 [facility] [place] [facility] [address] [id number] [place] [address]- [address]44 25 Sep, 2013 [facility] [place] [facility] [address] [id number] [place] [address]- [address]46 15 Sep, 2013 [facility] [place] [facility] [address] [id number] [place] [address]- [address]46 15 Sep, 2013 [facility] [place] [facility] [address] [id number] [place] [address]- [address]46 11 Sep, 2013 [facility] [place] [facility] [address] [id number] [place] [address] Jul, [facility] [place] [facility] [address] [id number] [place] [address]- 94[address] Jun, [facility] [place] [facility] [address] [id number] [place] [address]- [address] Jun, [facility] [place] [facility] [address] [id number] [place] [address]- 0794 Jun, [facility] [place] [facility] [address] [id number] [place] [address]- [address] Jun, [facility] [place] [facility] [address] [id number] [place] [address]- 6360 Jun, [facility] [place] [facility] [address] [id number] [place] [address]- 8816 Jun, [facility] [place] [facility] [address] [id number] [place] [address]- 5895 Jun, [facility] [place] [facility] [address] [id number] [place] [address]- [address]113 Jun, [facility] [place] [facility] [address] [id number] [place] [address]- [address] Jun, [facility] [place] [facility] [address] [id number] [place] [address]- 9288 Jun, [facility] [place] [facility] [address] [id number] [place] [address]- [address]293 Jun, [facility] [place] [facility] [address] [id number] [place] [address]- 7568 Jun, [facility] [place] [facility] [address] [id number] [place] [address]- 9877 Jun, [facility] [place] [facility] [address] [id number] [place] [address]- 96[address] Jun, [facility] [place] [facility] [address] [id number] [place] [address]- [address]65 Jun, [facility] [place] [facility] [address] [id number] [place] [address]- [address]473 Jun, [facility] [place] [facility] [address] [id number] [place] [address]- 4833 Jun, [facility] [place] [facility] [address] [id number] [place] [address]- 7609 Jun, [facility] [place] [facility] [address] [id number] [place] [address]- 4313 Jun, [facility] [place] [facility] [address] [id number] [place] [address]- [address]690 Jun, [facility] [place] [facility] [address] [id number] [place] [address]- [address]959 Jun, [facility] [place] [facility] [address] [id number] [place] [address]- 8943 Jun, [facility] [place] [facility] [address] [id number] [place] [address]- [address] May, [facility] [place] [facility] [address] [id number] [place] [address]- 5877 May, [facility] [place] [facility] [address] [id number] [place] [address]- [address] May, [facility] [place] [facility] [address] [id number] [place] [address]- 3260 May, [facility] [place] [facility] [address] [id number] [place] [address]- [address]492 May, [facility] [place] [facility] [address] [id number] [place] [address]- [address]407 May, [facility] [place] [facility] [address] [id number] [place] [address]- 7670 May, [facility] [place] [facility] [address] [id number] [place] [address]- 3507 May, [facility] [place] [facility] [address] [id number] [place] [address]- [address]304 May, [facility] [place] [facility] [address] [id number] [place] [address]- [address] May, [facility] [place] [facility] [address] [id number] [place] [address]- [address]200 May, [facility] [place] [facility] [address] [id number] [place] [address]- [address] May, [facility] [place] [facility] [address] [id number] [place] [address]- 8870 May, [facility] [place] [facility] [address] [id number] [place] [address]- [address] Apr, [facility] [place] [facility] [address] [id number] [place] [address]- [address] Apr, [facility] [place] [facility] [address] [address] [id number] [place] [address] Apr, [facility] [place] [facility] [address] [id number] [place] [address] Apr, [facility] [place] [facility] [address] [id number] [place] [address] 9676 Apr, [facility] [place] [facility] [address] [id number] [place] [address] 64[address] Apr, [facility] [place] [facility] [address] [id number] [place] [address] 0412 Apr, [facility] [place] [facility] [address] [id number] [place] [address] 6698 Apr, [facility] [place] [facility] [address] [id number] [place] [address] 9001 Apr, [facility] [place] [facility] [address] [id number] [place] [address] 6492 March, [facility] [place] [facility] [address] [id number] [place] [address] 4873 March, [facility] [place] [facility] [address] [id number] [place] [address] 4377 March, [facility] [address] [id number] [place] [address] 7275 March, [facility] [place] [facility] [address] [id number] [place] [address] 3054 March, [facility] [place] [facility] [address] [id number] [place] [address] 0821 March, [facility] [place] [facility] [address] [id number] [place] [address] 6281 March, [facility] [place] [facility] [address] [id number] [place] [address] 2057 March, [facility] [place] [facility] [address] [id number] [place] [address]- 5915 March, [facility] [place] [facility] [address] [id number] [place] [address] 75[address] March, [facility] [place] [facility] [address] [id number] [place] [address]- 1325 March, [facility] [place] [facility] [address] [id number] [place] [address]- 4344 March, [facility] [place] [facility] [address] [id number] [place] [address]- 8595 March, [facility] [place] [facility] [address] [id number] [place] [address]- 0259 March, [facility] [place] [facility] [address] [id number] [place] [address]- 4029 March, [facility] [place] [facility] [address] [id number] [place] [address]- 6194 March, [facility] [place] [facility] [address] [id number] [place] [address]- 0718 March, [facility] [place] [facility] [address] [id number] [place] [address]- 8380 March, [facility] [place] [facility] [address] [id number] [place] [address]- 4081 March, [facility] [place] [facility] [address] [id number] [place] [address]- 9844 March, [facility] [place] [facility] [address] [id number] [place] [address]- 7581 Feb, [facility] [place] [facility] [address] [id number] [place] [address]- 1145 Feb, [facility] [place] [facility] [address] [id number] [place] [address]- 7920 Feb, [facility] [place] [facility] [address] [id number] [place] [address]- 5289 Feb, [facility] [place] [facility] [address] [id number] [place] [address]- 6887 Feb, [facility] [place] [facility] [address] [id number] [place] [address]- 6154 Feb, [facility] [place] [facility] [address] [id number] [place] [address]- 2170 Feb, [facility] [place] [facility] [address] [id number] [place] [address]- 8121 Feb, [facility] [place] [facility] [address] [id number] [place] [address]- 8975 Jan, [facility] [place] [facility] [address] [id number] [place] [address]- 6934 Jan, [facility] [place] [facility] [address] [id number] [place] [address]- 0953 24 Jan, 2014 [facility] [place] [facility] [address] [id number] [place] [address]- 4122 24 Jan, 2014 [facility] [place] [facility] [address] [id number] [place] [address]- 8759 Jan, [facility] [place] [facility] [address] [id number] [place] [address] 13 Jan, 2014 [facility] [place] [facility] [address] [id number] [place] [address]- 8141 Jan, [facility] [place] [facility] [address] [id number] [place] [address]- 2166 Jan, [facility] [place] [facility] [address] [id number] [place] [address] 1949 Jan, [facility] [place] [facility] [address] [id number] [place] [address]- 8828 Jan, [facility] [place] [facility] [address] [id number] [place] [address]- 7210 Dec, [facility] [place] [facility] [address] [id number] [place] [address]- 5751 Dec, [facility] [place] [facility] [address] [id number] [place] [address]- 7335 Dec, [facility] [place] [facility] [address] [id number] [place] [address]- 2761 Dec, [facility] [place] [facility] [address] [id number] [place] [address]- 4385 Dec, [facility] [place] [facility] [address] [id number] [place] [address]- 1672 Dec, [facility] [place] [facility] [address] [id number] [place] [address]- 6669 Dec, [facility] [place] [facility] [address] [id number] [place] [address]- 2519 Dec, [facility] [place] [facility] [address] [id number] [place] [address]- 4694 Nov, [facility] [place] [facility] [address] [id number] [place] [address]- 5059 Nov, [facility] [place] [facility] [address] [id number] [place] [address]- 3736 Nov, [facility] [place] [facility] [address] [id number] [place] [address]- 1458 Nov, [facility] [address] [id number] [place] [address]- 7332 Nov, [facility] [place] [facility] [address] [id number] [place] [address]- 5813 Nov, [facility] [address] [id number] [place] [address]- 0262 Nov, [facility] [place] [facility] [address] [id number] [place] [address]- 6963 Nov, [facility] [place] [facility] [address] [id number] [place] [address]- 0182 Nov, [facility] [place] [facility] [address] [id number] [place] [address]- 9741 Nov, [facility] [address] [id number] [place] [address]- 0609 Nov, [facility] [place] [facility] [address] [id number] [place] [address]- 8453 Nov, [facility] [place] [facility] [address] [id number] [place] [address]- 9218 Nov, [facility] [address] [id number] [place] [address]- 9719 Oct, [facility] [place] [facility] [address] [id number] [place] [address]- 0254 Oct, [facility] [place] [facility] [address] [id number] [place] [address]- 1126 Oct, [facility] [place] [facility] [address] [id number] [place] [address]- 2031 Oct, [facility] [place] [facility] [address] [id number] [place] [address]- 6329 Oct, [facility] [place] [facility] [address] [id number] [place] [address]- 8061 Oct, [facility] [place] [facility] [address] [id number] [place] [address]- 6815 Oct, [facility] [address] [id number] [place] [address]- 2114 Oct, [facility] [address] [id number] [place] [address]- 0072 Oct, [facility] [address] [id number] [place] [address]- 8577 Oct, [facility] [address] [id number] [place] [address]- 7624 Oct, [facility] [address] [id number] [place] [address]- 4174 Oct, [facility] [address] [id number] [place] [address]- 4326 Oct, [facility] [address] [id number] [place] [address]- 6224 Oct, [facility] [address] [id number] [place] [address]- 1532 Sep, [facility] [address] [id number] [place] [address]- 2260 Sep, [facility] [address] [id number] [place] [address]- 0246 Sep, [facility] [place] [facility] [address] [id number] [place] [address]- 6057 Sep, [facility] [place] [facility] [address] [id number] [place] [address]- 7694 Sep, [facility] [place] [facility] [address] [id number] [place] [address]- 4234 Sep, [facility] [place] [facility] [address] [id number] [place] [address]- 3606 Sep, [facility] [place] [facility] [address] [id number] [place] [address]- 0776 Sep, [facility] [place] [facility] [address] [id number] [place] [address]- 8331 Sep, [facility] [place] [facility] [address] [id number] [place] [address] Sep, [facility] [place] [facility] [address] [id number] [place] [address]- 8392 Aug, [facility] [place] [facility] [address] [id number] [place] [address]- 0979 Aug, [facility] [place] [facility] [address] [id number] [place] [address]- 6929 Aug, [facility] [place] [facility] [address] [id number] [place] [address]- 4929 Aug, [facility] [place] [facility] [address] [id number] [address]- 7247 Aug, [facility] [place] [facility] [address] [id number] [address]- 5924 Aug, [facility] [place] [facility] [address] [id number] [place] [address]- 9377 Aug, [facility] [place] [facility] [address] [id number] [place] [address]- 8141 Aug, [facility] [place] [facility] [address] [id number], [place] [address]- 2942 Aug, [facility] [place] [facility] [address] [id number], [place] [address]- 7288 Aug, [facility] [place] [facility] [address] [id number] [place] [address]- 8523 Aug, [facility] [place] [facility] [address] [id number], [place] [address]- 7957 Aug, [facility] [place] [facility] [address] [id number] [place] [address]- 9286 Aug, [facility] [place] [facility] [address] [id number] [place] [address]- 4585 18 Aug, 2013 [facility] [address] [id number] [place] [address]- 4934 17 Aug, 2013 [facility] [place] [facility] [address] [id number] [place] [address]- 9322 14 Aug, 2013 [facility] [address] [id number] [place] [address]- 0141 14 Aug, 2013 [facility] [place] [facility] [address] [id number] [place] [address]- 5446 01 Aug, 2013 [facility] [address] [id number] [place] [address]- 1464 20 Jul, 2013 [facility] [place] [facility] [address] [id number] [place] [address]- 1074 19 Jul, 2013 [facility] [place] [facility] [address] [id number] [place] [address]- 4927 18 Jul, 2013 [facility] [address] [id number] [place] [address]- 3849 11 Jul, 2013 [facility] [place] [facility] [address] [id number] [place] [address]- 3251 11 Jul, 2013 [facility] [address] [id number] [place] [address]- 3177 28 Jun, 2013 [facility] [place] [facility] [address] [id number] [place] [address]- 2548 Jun, [facility] [place] [facility] [address] [id number] [place] [address]- 2543 Jun, [facility] [place] [facility] [address] [id number] [place] [address]- 4454 15 Jun, 2013 [facility] [place] [facility] [address] [id number] [place] [address]- 7998 14 Jun, 2013 [facility] [place] [facility] [address] [id number] [place] [address]- 9586 Jun, [facility] [place] [facility] [address] [id number] [place] [address]- 0737 Jun, [facility] [place] [facility] [address] [id number] [place] [address]- 2800 Jun, [facility] [place] [facility] [address] [id number] [place] [address]- 7624 Jun, [facility] [place] [facility] [address] [id number] [place] [address]- 1867 Jun, [facility] [place] [facility] [address] [id number] [place] [address]- 7143 May, [facility] [place] [facility] [address] [id number] [place] [address]- 8264 May, [facility] [place] [facility] [address] [id number] [place] [address]- 1687 May, [facility] [place] [facility] [address] [id number] [place] [address]- 8806 May, [facility] [place] [facility] [address] [id number] [place] [address]- 3215 May, [facility] [place] [facility] [address] [id number] [place] [address]- 1821 May, [facility] [place] [facility] [address] [id number] [place] [address]- 7212 May, [facility] [place] [facility] [address] [id number] [place] [address]- 6014 May, [facility] [place] [facility] [address] [id number] [place] [address]- 4819 May, [facility] [place] [facility] [address] [id number] [place] [address]- 0414 Apr, [facility] [place] [facility] [address] [id number] [place] [address] Apr, [facility] [place] [facility] [address] [id number] [address]- 6461 Apr, [facility] [address] [id number] [place] [address]- 1440 Apr, [facility] [address] [id number] [place] [address]- 8481 Apr, [facility] [address] [facility] [id number] [place] [address]- 3957 Apr, [facility] [address] [id number] [place] [address]- 7467 Apr, [facility] [address] [id number] [place] [address]- 0867 March, [facility] [address] [id number] [place] [address]- 0679 Feb, [facility] [address] [id number] [place] [address]- 0086 Feb, [facility] [address] [id number] [place] [address]- 1017 Feb, [facility] [address] [id number] [place] [address]- 9519 Jan, [facility] [address] [facility] [id number] [place] [address]- 2375 Jan, [facility] [address] [id number] [place] [address]- 1307 Jan, [facility] [place] [facility] [address] [id number], [place] [address]- 8782 14 Jan, 2013 [facility] [place] [facility] [address] [id number] [place] [address]- 4307 12 Jan, 2013 [facility] [place] [facility] [address] [facility] [id number] [place] [address]- 2298 08 Jan, 2013 [facility] [place] [facility] [address] [facility] [id number] [place] [address]- 2501 07 Jan, 2013 [facility] [place] [facility] [address] [id number] [place] [address]- 9076 Jan, [facility] [place] [facility] [address] [id number] [place] [address]- 0842 28 Dec, 2012 [facility] [place] [facility] [address] [id number] [place] [address]- 2546 25 Dec, 2012 [facility] [place] [facility] [address] [id number] [place] [address] 2546 13 Dec, 2012 [facility] [place] [facility] [address] [id number] [place] [address]- 3687 11 Dec, 2012 [facility] [place] [facility] [address] [id number] [place] [address]- 4526 07 Dec, 2012 [facility] [place] [facility] [address] [id number] [place] [address]- 9214 06 Dec, 2012 [facility] [place] [facility] [address] [id number] [place] [address]- 4924 05 Dec, 2012 [facility] [place] [facility] [address] [id number] [place] [address]- 7564 Nov, [facility] [place] [facility] [address] [id number] [place] [address]- 8353 24 Nov, 2012 [facility] [place] [facility] [address] [id number] [place] [address]- 2418 Nov, [facility] [place] [facility] [address] [id number], [place] [address]- 3481 15 Nov, 2012 [facility] [place] [facility] [address] [id number] [place] [address]- 1158 Nov, [facility] [place] [facility] [address] [id number] [place] [address]- 4428 10 Nov, 2012 [facility] [place] [facility] [address] [id number], [place] [address]- 6063 02 Nov, 2012 [facility] [place] [facility] [address] [id number], [place] [address]- 4561 Oct, [facility] [place] [facility] [address] [id number] [place] [address]- 7226 Oct, [facility] [place] [facility] [address] [id number] [place] [address]- 7976 Oct, [facility] [place] [facility] [address] [facility] [id number] [place] [address]- 0846 Oct, [facility] [place] [facility] [address] [id number] [place] [address]- 6139 Oct, [facility] [place] [facility] [address] [id number] [place] [address]- 5935 Oct, [facility] [place] [facility] [address] [id number] [place] [address]- 9382 Oct, [facility] [place] [facility] [address] [id number] [place] [address]- 3684 Oct, [facility] [place] [facility] [address] [facility] [id number] [place] [address]- 5700 Oct, [facility] [place] [facility] [address] [facility] [id number] [place] [address]- 5485 Oct, [facility] [place] [facility] [address] [facility] [id number] [place] [address]- 6479 Oct, [facility] [place] [facility] [address] [facility] [id number] [place] [address]- 9708 Oct, [facility] [place] [facility] [address] [id number] [place] [address]- 2649 Sep, [facility] [place] [facility] [address] [id number] [place] [address]- 4960 Sep, [facility] [place] [facility] [address] [facility] [id number] [place] [address]- 3690 Sep, [facility] [place] [facility] [address] [facility] [id number] [place] [address]- 3837 Sep, [facility] [place] [facility] [address] [id number] [place] [address]- 7911 Sep, [facility] [place] [facility] [address] [id number] [place] [address]- 9314 Sep, [facility] [place] [facility] [address] [id number] [place] [address]- 3940 Sep, [facility] [place] [facility] [address] [id number] [place] [address]- 6883 Sep, [facility] [place] [facility] [address] [id number] [place] [address]- 2483 Sep, [facility] [place] [facility] [address] [id number] [place] [address] Sep, [facility] [place] [facility] [address] [id number] [place] [address] Sep, [facility] [place] [facility] [address] [id number] [place] [address] Aug, [facility] [place] [facility] [address] [id number] [place] [address] Aug, [facility] [place] [facility] [address] [id number] [place] [address] Aug, [facility] [place] [facility] [address] [facility] [id number] [place] [address] Aug, [facility] [place] [facility] [address] [id number] [place] [address] Aug, [facility] [place] [facility] [address] [id number] [place] [address] Aug, [facility] [place] [facility] [address] [id number] [place] [address] Aug, [facility] [place] [facility] [address] [facility] [id number] [place] [address] Aug, [facility] [place] [facility] [address] [id number] [place] [address] Aug, [facility] [place] [facility] [address] [id number] [place] [address]67 Aug, [facility] [place] [facility] [address] [id number] [place] [address] Jul, [facility] [place] [facility] [address] [id number] [place] [address] Jul, [facility] [place] [facility] [address] [id number] [place] [address] Jul, [facility] [place] [facility] [address] [id number] [place] [address] Jul, [facility] [place] [facility] [address] [id number] [place] [address] Jun, [facility] [place] [facility] [address] [id number] [place] [address] Jun, [facility] [place] [facility] [address] [id number] [place] [address]- [address] Jun, [facility] [place] [facility] [address] [id number] [place] [address] Jun, [facility] [place] [facility] [address] [id number] [place] [address]- 164[address] Jun, [facility] [place] [facility] [address] [id number] [place] [address]17 Jun, [facility] [place] [facility] [address] [id number] [place] [address]- [address]24 Jun, [facility] [place] [facility] [address] [id number] [place] [address] May, [facility] [place] [facility] [address] [id number] [place] [address] May, [facility] [place] [facility] [address] [id number] [place] [address] May, [facility] [place] [facility] [address] [id number] [place] [address] May, [facility] [address] [id number] [place] [address] May, [facility] [place] [facility] [address] [id number] [place] [address]- [address]7 Apr, [facility] [place] [facility] [address] [id number] [place] [address] Apr, [facility] [place] [facility] [address] [id number] [place] [address]78 Apr, [facility] [place] [facility] [address] [id number] [place] [address] Apr, [facility] [place] [facility] [address] [id number] [place] [address] Apr, [facility] [address] [id number] [place] [address] March, [facility] [address] [id number] [place] [address] 1710 March, [facility] [address] [id number] [place] [address] March, [facility] [address] [id number] [place] [address]- 8437 March, [facility] [place] [facility] [address] [id number] [place] [address] March, [facility] [place] [facility] [address] [id number] [place] [address] 8536 March, [facility] [place] [facility] [address] [id number] [place] [address] 8366 March, [facility] [place] [facility] [address] [id number] [place] [address]- [address]266 March, [facility] [place] [facility] [address] [id number] [place] [address] March, [facility] [place] [facility] [address] [id number] [place] [address] March, [facility] [address] [id number] [place] [address]- [address] 30 Feb, 2012 [facility] [place] [facility] [address] [id number] [place] [address]- 9766 Feb, [facility] [place] [facility] [address] [id number] [place] [address] 0653 Feb, [facility] [address] [id number] [place] [address] 4069 Feb, [facility] [place] [facility] [address] [id number] [place] [address]603 Feb, [facility] [address] [id number] [place] [address] Feb, [facility] [address] [id number] [place] [address]- 7618 Feb, [facility] [place] [facility] [address] [id number] [place] [address] 1181 Feb, [facility] [place] [facility] [address] [id number] [place] [address]- 6890 Feb, [facility] [place] [facility] [address] [id number] [place] [address] Jan, [facility] [place] [facility] [address] [id number] [place] [address]- 0469 Jan, [facility] [place] [facility] [address] [id number] [place] [address] 0951 Jan, [facility] [place] [facility] [address] [id number] [place] [address] 9139 Jan, [facility] [place] [facility] [address] [id number] [place] [address] Dec, [facility] [place] [facility] [address] [id number] [place] [address]285 Dec, [facility] [id number] [address] Nov, [facility] [id number] [address]486 Nov, [facility] [id number] [address] 7981 Nov, [facility] [id number] [address]382 Nov, [facility] [id number] [address] Nov, [facility] [id number] [place] [address]30838- 5461 Oct, [facility] [id number] [place] [address]- [address] Oct, [facility] [id number], [place] [address] Oct, [facility] [id number] [place] [address]- [address] Oct, [facility] [id number], [place] [address] Oct, [facility] [address] [address] Oct, [facility] [address] [address] Oct, [facility] [address] [address] Oct, [facility] [facility] [id number] [id number] Sep, IMMUNIZATIONS No Known Immunizations SOCIAL HISTORY Never Assessed REASON FOR VISIT Routine Visit PLAN OF CARE Activity Details Follow Up prn Reason: VITAL SIGNS MEDICATIONS Medication Instructions Dosage Frequency Start Date End Date Duration Status BuPROPion HCl ER (XL) 300 MG Orally Once a day at HS 1 tablet in the morning Active Metoprolol Tartrate 50 MG Orally Twice a day 1 tablet with food 12h Active Furosemide 20 mg Orally every other day 1 tablet Active Gabapentin 400 MG Orally Three times a day 1 capsule 8h Active MetFORMIN HCl ER 500 MG Orally Once a day 1 tablet with evening meal 24h Active Symbicort 160-4.5 MCG/ACT Inhalation Twice a day 2 puffs 12h Active Cipro 500 MG Orally Twice a day 1 tablet 12h Aug, Sep, Active MS Contin 30 MG Orally every 12 hrs 1 tablet 12h 12 Aug, 2017 30 days Active Potassium Chloride Radha ER 20 meq Orally q48H TAKES WITH FUROSEMIDE 1 tablet with food Active Trazodone HCl 50 mg Orally Once a day at HS 1 tablet at bedtime as needed Active Tamsulosin HCl 0.4 MG Orally Once a day 1 capsule 24h Active Ativan 0.5 MG Orally every 8 hours, PRN 1 tablet as needed Aug, Active Aspirin 81 MG Orally Once a day 1 tablet 24h Active Ondansetron HCl 4 MG Orally every 6 hours as needed NAUSEA/VOMITING 1 tablets Active MiraLax 17 gm/dose Orally Once a day 17 grams mixed in 8 oz of water or juice 24h Apr, Active Atorvastatin Calcium 40 MG Orally Once a day 1 tablet 24h Oct, 30 day(s) Active ProAir HFA 108 (90 Base) MCG/ACT Inhalation every 4 hrs for shortness of breath 1 puffs as needed Active Estradiol 0.1 MG/GM Vaginal 3 times per week 1 application to skin Active RESULTS No Results PROCEDURES Procedure Date Ordered Result Body Site Minor complication (15 mins) Sep 10, 2017 INSTRUCTIONS MEDICATIONS ADMINISTERED No Known Medications
--- OUTSIDE RECORDS SUMMARY | 2018-09-04 12:00 | XMS REPORT ---
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 Name Role Phone HUGO ELIZONDO Unavailable PROBLEMS Type Condition ICD9-CM Code VSP52-NP Code Onset Dates Condition Status SNOMED Code Problem Other chronic pain G89.29 Active 97188973 Problem Type 2 diabetes mellitus without complication, without long-term current use of insulin E11.9 Active 972898565 Problem Low back pain M54.5 Active 449688574 Problem Hypertension I10 Active 14338666 Problem Coronary artery disease I25.10 Active 33973431 Problem Hyperlipidemia E78.5 Active 63002339 Problem Peripheral vascular disease I73.9 Active 457005372 Problem Insomnia G47.00 Active 226986063 Problem Reactive depression F32.9 Active 45071968 Problem Ventral hernia without obstruction or gangrene K43.9 Active 635662354 Problem Anxiety F41.9 Active 90587477 Problem Pharyngeal dysphagia R13.13 Active [id number] ALLERGIES No Information ENCOUNTERS Encounter Location Date Diagnosis [facility] [address] [address] Apr, [facility] [id number] [place] [address] 90642- 2903 Apr, [place] [id number] [place] [address] 28566- 6862 Apr, [facility] [address] [place] [id number] Apr, Closed compression fracture of L3 lumbar vertebra with routine healing, subsequent encounter S32.030D [facility] [address] [place] [id number] 14 Apr, 2018 Low back pain M54.5 [facility] [address] [place] [id number] Apr, Coccydynia M53.3 [facility] [address] [address] 44[address] March, [facility] [address], [place] [address] 2546 March, Other chronic pain G89.29 [facility] [address] [address] 7396 March, [facility] [address], [place] [address] 1294 March, [facility] [id number] [place] [address] 74333- 1236 Feb, [facility] [id number] [place] [address] 51170- 2026 Feb, Other chronic pain G89.29 [facility] [address] [place] [id number] Feb, Other chronic pain G89.29 and Anxiety F41.9 [facility] [address] [address] 0114 Feb, [facility] [address], [place] [address] 2546 Jan, [facility] [address], [place] [address] 2662 Jan, [facility] [address], [place] [address] 1996 Jan, [facility] [address] [id number], [place] [address] 7009 Jan, [facility] [address] [address] 2546 Dec, [facility] [address] [place] [id number] Dec, Peripheral vascular disease I73.9 ; 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 ; Other chronic pain G89.29 ; Anxiety F41.9 ; Reactive depression F32.9 ; Insomnia G47.00 and Type 2 diabetes mellitus without complication, without long-term current use of insulin E11.9 [facility] [address] [id number] [place] [address] Nov [facility] [id number] [address] Nov, Anxiety F41.9 [facility] [id number] [place] [address] [id number]- 9526 Nov, [facility] [id number] [place] [address] [id number] Nov, Anxiety F41.9 [facility] [address] [place] [id number] Nov, Status post surgery Z98.890 ; Confused R41.0 ; Anxiety F41.9 and Other chronic pain G89.29 [facility] [id number] [place] [address] [id number] Nov, Other chronic pain G89.29 [facility] [id number] [place] [address] 29930- 8996 Oct, [facility] [id number] [place] [address] [id number] Oct, Other chronic pain G89.29 [facility] [address]005[address] [address] 2546 Oct, Anxiety F41.9 [facility] [id number] [place] [address] [id number] Sep, Other chronic pain G89.29 [facility] [id number] [place] [address] [id number] Sep, [facility] [address] [place] [id number] Aug, Dysuria R30.0 and Anxiety F41.9 [facility] [id number] [place] [address] 33710- 6077 Aug, [facility] [id number] [address] Aug, Other chronic pain G89.29 [facility] [address] [address] 0936 Jul, Other chronic pain G89.29 [facility] [id number] [id number] Jun, [facility] [id number] [id number] Jun, Other chronic pain G89.29 [facility] [address] [address] Jun, [facility] [address] 4[address] May, Other chronic pain G89.29 [facility] [id number] [place] [address] 83335- 4590 Apr, Other chronic pain G89.29 [facility] [address] [place] [id number] Apr, Reactive depression F32.9 and Pharyngeal dysphagia R13.13 [facility] [address], [place] [address] 3[address] Apr, Urinary tract infection without hematuria, site unspecified N39.0 [facility] [address]005[address] [address] 3597 March, Other chronic pain G89.29 [facility] [address] [id number] [address] 0874 Feb, Other chronic pain G89.29 [facility] [address] [id number] 6614 Feb, [facility] [id number] [id number] Feb, [facility] [address] [place] [id number] Feb, Dysuria R30.0 and Ventral hernia without obstruction or gangrene K43.9 [facility] [address]00565[address], [place] [address]- 4094 Jan, Other chronic pain G89.29 [facility] [id number] [place] [address] [id number] Dec, Other chronic pain G89.29 [facility] [id number] [place] [address] 802389- 8852 Nov, Other chronic pain G89.29 [facility] [address] [place] [id number] Nov, Lymphadenitis I88.9 [facility] [id number] [place] [address] 524745- 9926 Nov, Other chronic pain G89.29 [facility] [id number] [place] [address] 53454- 0709 Nov, [facility] [id number] [place] [address] [id number] Nov, Other chronic pain G89.29 [facility] [address] [place] [id number] Oct, Low back pain M54.5 ; Hypertension I10 and Type 2 diabetes mellitus without complication, without long-term current use of insulin E11.9 [facility] [address], [place] [address]- 8875 Oct, [facility] [id number] [place] [address] 71045- 1744 Oct, [facility] [address], [place] [address]- 8074 Oct, [facility] [id number] [place] [address] 770753- 5529 Oct, [facility] [address] [address] 7873 Sep, [facility] [id number], [place] [address]- 2200 Sep, [facility] [address] [facility] [id number] [address]- 0501 Aug, Other chronic pain G89.29 [facility] [address] [facility] [id number], [place] [address]- 5030 Jul, [facility] [address] [facility] [id number] [place] [address] 85625- 9707 Jul, [facility] [address] [facility] [id number], [place] [address]- 5282 Jul, [facility] [address], [place] [address]- 2118 Jun, [facility] [address], [place] [address]- 5925 Jun, [facility] [address] [place] [id number] Jun, Low back pain M54.5 ; Other chronic pain G89.29 and Coronary artery disease I25.10 [facility] [address], [place] [address]- 7144 Jun, [facility] [address], [place] [address]- 1205 May, [facility] [address] [id number], [place] [address]- 5048 May, [facility] [address] [id number], [place] [address]- 1997 May, Other chronic pain G89.29 [facility] [address], [place] [address]- 1821 May, [facility] [address] [facility] [id number], [place] [address]- 5457 Apr, [facility] [address] [id number], [place] [address]- 4472 Apr, Acute cystitis without hematuria N30.00 [facility] [id number] [place] [address] 16317- 3376 16 Apr, 2016 Acute cystitis without hematuria N30.00 ; Coronary artery disease I25.10 ; Low back pain M54.5 and Other chronic pain G89.29 [facility] [id number] [place] [address] 66746- 7776 Apr, Other chronic pain G89.29 [facility] [id number] [place] [address] 35747- 8392 March, Other chronic pain G89.29 [facility] [id number] [place] [address] 77249- 9206 Feb, [facility] [id number] [place] [address] 96835- 4474 Feb, Arthritis M19.90 [facility] [address] [address]227- 6831 Feb, [facility] [id number] [place] [address] 15109- 2515 Jan, [facility] [id number] [place] [address] 51060- 2476 Jan, [facility] [id number] [place] [address] 44246- 5914 Jan, Other chronic pain G89.29 [facility] [id number] [place] [address] 16326- 5905 Jan, Hypertension I10 ; Coronary artery disease I25.10 and Insomnia G47.00 [facility] [id number] [place] [address] 41447- 9183 Jan, [facility] [id number] [place] [address] 54106- 2549 Dec, Right hip pain M25.551 [facility] [id number] [place] [address] 74932- 3981 Dec, [facility] [address] [facility] [id number], [place] [address]- 6316 Dec, [facility] [address] [facility] [id number], [place] [address]- 5256 Dec, [facility] [address] [id number], [place] [address]- 0049 Dec, Other chronic pain G89.29 [facility] [address] [facility] [id number], [place] [address] 2542 Dec, [facility] [id number] [place] [address] 50310- 7181 Nov, [facility] [address] [address]- 2375 Nov, Other chronic pain G89.29 [facility] [address] [id number] [address]- 6868 Nov, Right hip pain M25.551 and Coronary artery disease I25.10 [facility] [address], [place] [address]- 8483 Nov, Other chronic pain G89.29 [facility] [address], [place] [address]- 5955 Oct, [facility] [address], [place] [address]- 4001 Oct, [facility] [address], [place] [address]- 6433 Sep, [facility] [address], [place] [address]- 2031 Sep, [facility] [address], [place] [address]- 2546 Aug, [facility] [address], [place] [address]- 7957 Aug, Hypertension I10 ; Coronary artery disease I25.10 and Arthritis M19.90 [facility] [address] [facility] [id number], [place] [address]- 2765 Jun, [facility] [id number] [address]- 3862 Jun, Essential hypertension, benign 401.1 ; Other chronic pain 338.29 and Chronic airway obstruction, not elsewhere classified 496 [facility] [address] [facility] [id number], [place] [address]- 5982 Jun, [facility] [address] [facility] [id number], [place] [address]- 4924 Jun, [facility] [id number], [place] [address]- 9474 Jun, [facility] [id number] [address]- 0483 May, [facility] [address], [place] [address]- 5395 May, [facility] [address], [place] [address]- 4634 Apr, [facility] [address], [place] [address]- 9694 Apr, [facility] [address], [place] [address]- 0918 Apr, [facility] [address] [id number], [place] [address]- 5758 March, [facility] [address] [id number], [place] [address]- 4625 March, [facility] [address] [id number] [address]- 8895 March, [facility] [address], [place] [address]- 0496 March, [facility] [id number] [address]- 7365 March, Sialadenitis 527.2 [facility] [address] [id number] [place] [address]- 2707 Feb, [facility] [address] [id number] [place] [address]- 7155 Feb, [facility] [address] [id number] [place] [address]- 4372 Feb, [facility] [address] [id number] [place] [address]- 5943 Feb, [facility] [address] [id number] [place] [address]- 7851 Feb, [facility] [address] [facility] [id number] [place] [address]- 0040 Jan, [facility] [address] [facility] [id number] [place] [address]- 4659 Jan, [facility] [address] [id number] [place] [address]- 9298 Jan, [facility] [address] [facility] [id number] [place] [address]- 7725 Jan, [facility] [address] [facility] [id number] [place] [address]- 6403 Jan, [facility] [address] [facility] [id number] [place] [address]- 2030 Jan, [facility] [address] [id number] [place] [address]- 6436 Dec, [facility] [address] [id number] [place] [address]- 3415 Dec, [facility] [address] [facility] [id number] [place] [address]- 9485 Dec, [facility] [address] [facility] [id number] [place] [address]- 6620 Dec, [facility] [place] [facility] [address] [id number] [place] [address]- 0138 Dec, [facility] [place] [facility] [address] [id number] [place] 2305 Dec, [facility] [place] [facility] [address] [id number] [place] [address]- 6027 Nov, [facility] [place] [facility] [address] [id number] [place] [address]- 1005 Nov, [facility] [place] [facility] [address] [id number] [place] [address]- 1967 Nov, [facility] [place] [facility] [address] [id number] [place] [address]- 0424 Nov, [facility] [place] [facility] [address] [id number] [place] [address]- 7975 Nov, [facility] [place] [facility] [address] [id number] [place] [address]- 1085 Nov, [facility] [place] [facility] [address] [id number] [place] [address]- 4805 Nov, [facility] [place] [facility] [address] [id number] [place] [address]- 9508 Nov, [facility] [place] [facility] [address] [id number], [place] [address]- 5646 Nov, [facility] [place] [facility] [address] [id number], [place] [address]- 9250 Nov, [facility] [place] [facility] [address] [id number] [place] [address]- 6335 Nov, [facility] [place] [facility] [address] [id number] [place] [address]- 1197 Nov, [facility] [place] [facility] [address] [id number] [place] [address]- 4372 Nov, [facility] [place] [facility] [address] [id number] [place] [address]- 7530 Nov, [facility] [address] [id number] [place] [address]- 0021 Oct, [facility] [place] [facility] [address] [id number] [place] [address]- 5454 Oct, [facility] [place] [facility] [address] [id number] [place] [address]- 2132 Oct, [facility] [place] [facility] [address] [id number] [place] [address]- 7672 Oct, [facility] [place] [facility] [address] [id number] [place] [address]- 3010 Oct, [facility] [place] [facility] [address] [id number] [place] [address]- 7432 Oct, [facility] [place] [facility] [address] [id number] [place] [address]- 8458 Oct, [facility] [address] [id number] [place] [address]- 7519 Oct, [facility] [place] [facility] [address] [id number] [place] [address]- 1500 Oct, [facility] [address] [id number] [place] [address]- 7496 Sep, [facility] [place] [facility] [address] [id number] [place] [address] Sep, [facility] [place] [facility] [address] [id number] [place] [address] Sep, [facility] [place] [facility] [address] [id number] [place] [address] Sep, [facility] [place] [facility] [address] [id number] [place] [address] Sep, [facility] [place] [facility] [address] [id number] [place] [address] Sep, [facility] [place] [facility] [address] [id number] [place] [address] Sep, [facility] [place] [facility] [address] [id number] [place] [address] Sep, [facility] [place] [facility] [address] [id number] [place] [address] Sep, [facility] [place] [facility] [address] [id number] [place] [address] Sep, [facility] [place] [facility] [address] [id number] [place] [address] Sep, [facility] [place] [facility] [address] [id number] [place] [address] Sep, [facility] [place] [facility] [address] [id number] [place] [address] Aug, [facility] [place] [facility] [address] [id number] [place] [address] Aug, [facility] [place] [facility] [address] [id number] [place] [address] Aug, [facility] [place] [facility] [address] [id number] [place] [address] Aug, [facility] [place] [facility] [address] [id number] [place] [address] Aug, [facility] [place] [facility] [address] [id number] [address] Aug, [facility] [place] [facility] [address] [id number] [place] [address] Aug, [facility] [place] [facility] [address] [id number] [place] [address] Aug, [facility] [place] [facility] [address] [id number] [place] [address] 30 Jul, 2014 [facility] [place] [facility] [address] [id number] [place] [address] 30 Jul, 2013 [facility] [place] [facility] [address] [id number] [place] [address]- [address] 30 Jul, 2013 [facility] [place] [facility] [address] [id number] [place] [address] 30 Jul, 2013 [facility] [place] [facility] [address] [id number] [place] [address]- [address] 25 Jul, 2013 [facility] [place] [facility] [address] [id number] [place] [address] 25 Jul, 2013 [facility] [place] [facility] [address] [id number] [place] [address] 15 Jul, 2013 [facility] [place] [facility] [address] [id number] [place] [address] 15 Jul, 2013 [facility] [place] [facility] [address] [id number] [place] [address] Jul, 2013 [facility] [place] [facility] [address] [id number] [place] [address] Jul, 2013 [facility] [place] [facility] [address] [id number] [place] [address] Jun, [facility] [place] [facility] [address] [id number] [place] [address] Jun, [facility] [place] [facility] [address] [id number] [place] [address] Jun, [facility] [place] [facility] [address] [id number] [place] [address] Jun, [facility] [place] [facility] [address] [id number] [place] [address] Jun, [facility] [place] [facility] [address] [id number] [place] [address] Jun, [facility] [place] [facility] [address] [id number] [place] [address] Jun, [facility] [place] [facility] [address] [id number] [place] [address] 8[address] Jun, [facility] [place] [facility] [address] [id number] [place] [address] 9519 Jun, [facility] [place] [facility] [address] [id number] [place] [address] 1512 Jun, [facility] [place] [facility] [address] [id number] [place] [address] 5314 Jun, [facility] [place] [facility] [address] [id number] [place] [address] Jun, [facility] [place] [facility] [address] [id number] [place] [address]- 9295 Jun, [facility] [place] [facility] [address] [id number] [place] [address]- 6291 Jun, [facility] [place] [facility] [address] [id number] [place] [address] 9148 Jun, [facility] [place] [facility] [address] [id number] [place] [address]- 0335 Jun, [facility] [place] [facility] [address] [id number] [place] [address]- 0157 Jun, [facility] [place] [facility] [address] [id number] [place] [address]- 7642 Jun, [facility] [place] [facility] [address] [id number] [place] [address]- 1438 Jun, [facility] [place] [facility] [address] [id number] [place] [address] 3946 Jun, [facility] [place] [facility] [address] [id number] [place] [address]- 6960 Jun, [facility] [place] [facility] [address] [id number] [place] [address]- 0906 Jun, [facility] [place] [facility] [address] [id number] [place] [address]- 8180 May, [facility] [place] [facility] [address] [id number] [place] [address]- 8927 May, [facility] [place] [facility] [address] [id number] [place] [address]- 5579 May, [facility] [place] [facility] [address] [id number] [place] [address]- 4411 May, [facility] [place] [facility] [address] [id number] [place] [address]- 0188 May, [facility] [place] [facility] [address] [id number] [place] [address]- 9446 May, [facility] [place] [facility] [address] [id number] [place] [address]- 4792 May, [facility] [place] [facility] [address] [id number] [place] [address]- 2408 May, [facility] [place] [facility] [address] [id number] [place] [address]- 1530 May, [facility] [place] [facility] [address] [id number] [place] [address]- 8862 May, [facility] [place] [facility] [address] [id number] [place] [address]- 2492 May, [facility] [place] [facility] [address] [id number] [place] [address]- 1068 May, [facility] [place] [facility] [address] [id number] [place] [address]- 2380 May, [facility] [place] [facility] [address] [id number] [place] [address]- 7966 Apr, [facility] [place] [facility] [address] [id number] [place] [address]- 0848 Apr, [facility] [place] [facility] [address] [id number] [place] [address]- 4272 Apr, [facility] [place] [facility] [address] [id number] [place] [address]- 1732 Apr, [facility] [place] [facility] [address] [id number] [place] [address]- 1595 Apr, [facility] [place] [facility] [address] [id number] [place] [address]- 5157 Apr, [facility] [place] [facility] [address] [id number] [place] [address]- 3612 Apr, [facility] [place] [facility] [address] [id number] [place] [address]- 9325 Apr, [facility] [place] [facility] [address] [id number] [place] [address]- 3455 Apr, [facility] [place] [facility] [address] [id number] [place] [address]- 7795 March, [facility] [place] [facility] [address] [id number] [place] [address]- 1490 March, [facility] [place] [facility] [address] [id number] [place] [address]- 2798 March, [facility] [place] [facility] [address] [id number] [place] [address]- 5783 March, [facility] [place] [facility] [address] [id number] [place] [address]- 4819 March, [facility] [place] [facility] [address] [id number] [place] [address]- 1008 March, [facility] [place] [facility] [address] [id number] [place] [address]- 7712 March, [facility] [place] [facility] [address] [id number] [place] [address] 2457 March, [facility] [place] [facility] [address] [id number] [place] [address]- 0067 March, [facility] [place] [facility] [address] [id number] [place] [address]- 8508 March, [facility] [place] [facility] [address] [id number] [place] [address]- 2917 March, [facility] [address] [id number] [place] [address] March, [facility] [address] [id number] [place] [address]- 0586 March, [facility] [place] [facility] [address] [id number] [place] [address]- 8570 March, [facility] [address] [id number] [place] [address]- 5352 March, [facility] [place] [facility] [address] [id number] [place] [address]- 5848 March, [facility] [address] [id number] [place] [address]- 7223 March, [facility] [address] [id number] [place] [address]- 5823 March, [facility] [address] [id number] [place] [address]- 1855 March, [facility] [place] [facility] [address] [id number] [place] [address] 2873 March, [facility] [place] [facility] [address] [id number] [place] [address]- 3812 Feb, [facility] [place] [facility] [address] [id number] [place] [address]- 3372 Feb, [facility] [place] [facility] [address] [id number] [place] [address]- 3084 Feb, [facility] [place] [facility] [address] [id number] [place] [address]- 6269 Feb, [facility] [place] [facility] [address] [id number] [place] [address]- 0354 Feb, [facility] [place] [facility] [address] [id number] [place] [address]- 6189 Feb, [facility] [place] [facility] [address] [id number] [place] [address]- 9907 Feb, [facility] [place] [facility] [address] [id number] [place] [address]- 2874 Feb, [facility] [place] [facility] [address] [id number] [place] [address]- 5511 Jan, [facility] [place] [facility] [address] [id number] [place] [address]- 5307 Jan, [facility] [place] [facility] [address] [id number] [place] [address]- 0243 Jan, [facility] [place] [facility] [address] [id number] [place] [address]- 8109 Jan, [facility] [place] [facility] [address] [id number] [place] [address]- 8325 Jan, [facility] [place] [facility] [address] [id number] [place] [address]- 0332 Jan, [facility] [place] [facility] [address] [id number] [place] [address]- 6149 Jan, [facility] [place] [facility] [address] [id number] [place] [address]- 1087 Jan, [facility] [place] [facility] [address] [id number] [place] [address]- 3772 Jan, [facility] [place] [facility] [address] [id number] [place] [address]- 1714 Jan, [facility] [place] [facility] [address] [id number] [place] [address]- 5107 Dec, [facility] [place] [facility] [address] [id number] [place] [address]- 0114 Dec, [facility] [place] [facility] [address] [id number] [place] [address]- 2231 Dec, [facility] [place] [facility] [address] [id number] [place] [address]- 3322 2013 [facility] [place] [facility] [address] [id number] [place] [address]- 4419 2013 [facility] [place] [facility] [address] [id number] [place] [address]- 3626 13 Dec, 2013 [facility] [place] [facility] [address] [id number] [place] [address]- 1233 Dec, [facility] [place] [facility] [address] [id number] [place] [address]- 3210 Dec, [facility] [place] [facility] [address] [id number] [place] [address]- 1932 Nov, [facility] [place] [facility] [address] [id number] [place] [address]- 9621 Nov, [facility] [place] [facility] [address] [id number] [place] [address]- 0741 Nov, [facility] [place] [facility] [address] [id number] [place] [address]- 2814 Nov, [facility] [place] [facility] [address] [id number] [place] [address]- 2877 Nov, [facility] [place] [facility] [address] [id number] [place] [address]- 1664 Nov, [facility] [place] [facility] [address] [id number] [place] [address]- 8539 Nov, [facility] [place] [facility] [address] [id number] [place] [address]- 1190 Nov, [facility] [place] [facility] [address] [id number] [place] [address]- 7537 Nov, [facility] [place] [facility] [address] [id number] [place] [address]- 9514 Nov, [facility] [place] [facility] [address] [id number] [address]- 0873 Nov, [facility] [address] [id number] [place] [address]- 5120 Nov, [facility] [place] [facility] [address] [id number] [place] [address]- 5242 Nov, [facility] [address] [id number] [place] [address]- 3864 Oct, [facility] [place] [facility] [address] [id number] [place] [address]- 4050 Oct, [facility] [address] [id number] [place] [address]- 0851 Oct, [facility] [address] [id number] [place] [address]- 6627 Oct, [facility] [address] [id number] [place] [address]- 0833 Oct, [facility] [place] [facility] [address] [id number] [place] [address]- 6549 Oct, [facility] [address] [id number] [place] [address]- 8205 Oct, [facility] [place] [facility] [address] [id number] [place] [address]- 5785 Oct, [facility] [address] [id number] [place] [address]- 5758 Oct, [facility] [place] [facility] [address] [id number] [place] [address]- 6562 17 Oct, 2013 [facility] [place] [facility] [address] [id number] [place] [address]- 3074 Oct, [facility] [place] [facility] [address] [id number] [place] [address]183 Oct, [facility] [place] [facility] [address] [id number] [place] [address]- 3074 Oct, [facility] [place] [facility] [address] [id number] [place] [address]- 7472 Oct, [facility] [address] [id number] [place] [address]- 4223 Sep, [facility] [place] [facility] [address] [id number] [place] [address]- 2135 Sep, [facility] [address] [id number] [place] [address]- 2625 Sep, [facility] [place] [facility] [address] [id number] [place] [address]- 2246 Sep, [facility] [place] [facility] [address] [id number] [place] [address]- 5722 Sep, [facility] [place] [facility] [address] [id number] [place] [address]- 7690 Sep, [facility] [place] [facility] [address] [id number] [place] [address]- 9076 Sep, [facility] [address] [id number] [place] [address]- 6793 Sep, [facility] [place] [facility] [address] [id number] [place] [address]- 7174 Sep, [facility] [place] [facility] [address] [id number] [place] [address]- 1887 Sep, [facility] [place] [facility] [address] [id number] [place] [address]- 6381 Aug, [facility] [place] [facility] [address] [id number], [place] [address]- 2539 Aug, [facility] [place] [facility] [address] [id number] [place] [address]- 2157 Aug, [facility] [place] [facility] [address] [id number] [place] [address]- 1428 Aug, [facility] [place] [facility] [address] [id number] [place] [address]- 1456 Aug, [facility] [place] [facility] [address] [id number] [place] [address]- 7507 23 Aug, 2012 [facility] [place] [facility] [address] [id number] [place] [address]- 4476 23 Aug, 2012 [facility] [place] [facility] [address] [id number] [place] [address]- 0378 23 Aug, 2012 [facility] [place] [facility] [address] [id number] [place] [address]- 2226 Aug, 2012 [facility] [place] [facility] [address] [id number] [place] [address]- 2044 22 Aug, 2012 [facility] [place] [facility] [address] [id number] [place] [address]- 5684 18 Aug, 2013 [facility] [place] [facility] [address] [id number] [place] [address]- 3996 18 Aug, 2013 [facility] [place] [facility] [address] [id number] [place] [address]- 0133 18 Aug, 2013 [facility] [place] [facility] [address] [id number] [place] [address]- 4960 18 Aug, 2013 [facility] [place] [facility] [address] [id number], [place] [address]- 7777 17 Aug, 2013 [facility] [place] [facility] [address] [id number], [place] [address]- 5922 14 Aug, 2013 [facility] [place] [facility] [address] [id number], [place] [address]- 8487 14 Aug, 2013 [facility] [place] [facility] [address] [id number] [place] [address]- 7188 Aug, [facility] [place] [facility] [address] [id number], [place] [address]- 5935 20 Jul, 2013 [facility] [place] [facility] [address] [id number] [place] [address]114 19 Jul, 2013 [facility] [place] [facility] [address] [id number] [place] [address]- 5708 18 Jul, 2013 [facility] [place] [facility] [address] [id number] [place] [address]- 0437 Jul, [facility] [place] [facility] [address] [id number] [place] [address]- 1441 Jul, [facility] [place] [facility] [address] [id number] [place] [address]- 4734 Jun, [facility] [place] [facility] [address] [id number] [place] [address]- 5592 Jun, [facility] [place] [facility] [address] [id number] [place] [address]- 1534 Jun, [facility] [place] [facility] [address] [id number] [place] [address]- 1354 Jun, [facility] [place] [facility] [address] [id number] [place] [address]- 7873 Jun, [facility] [place] [facility] [address] [id number] [place] [address]- 6496 Jun, [facility] [place] [facility] [address] [id number] [place] [address]- 4014 Jun, [facility] [place] [facility] [address] [id number] [place] [address]- 5441 Jun, [facility] [place] [facility] [address] [id number] [place] [address]- 1547 Jun, [facility] [place] [facility] [address] [id number] [place] [address]- 8368 Jun, [facility] [place] [facility] [address] [id number] [place] [address]- 4674 May, [facility] [place] [facility] [address] [id number] [place] [address]- 6313 May, [facility] [place] [facility] [address] [id number] [place] [address]- 0246 May, [facility] [place] [facility] [address] [id number] [place] [address]- 7753 May, [facility] [place] [facility] [address] [id number] [place] [address]- 3305 May, [facility] [place] [facility] [address] [id number] [place] [address] 2546 May, [facility] [place] [facility] [address] [id number] [place] [address]- 2192 May, [facility] [place] [facility] [address] [id number] [place] [address]- 2713 May, [facility] [place] [facility] [address] [id number] [place] [address]- 9984 May, [facility] [place] [facility] [address] [id number] [place] [address]- 0825 Apr, [facility] [place] [facility] [address] [id number] [place] [address]- 7534 Apr, [facility] [place] [facility] [address] [id number] [place] [address]- 1434 Apr, [facility] [place] [facility] [address] [id number] [place] [address]- 7139 Apr, [facility] [place] [facility] [address] [id number] [place] [address]- 3487 Apr, [facility] [place] [facility] [address] [id number] [place] [address]- 4388 Apr, [facility] [place] [facility] [address] [id number] [place] [address]- 9302 Apr, [facility] [place] [facility] [address] [id number] [place] [address]- 7938 March, [facility] [place] [facility] [address] [id number] [place] [address]- 5731 Feb, [facility] [place] [facility] [address] [id number] [place] [address]- 6877 Feb, [facility] [address] [id number] [place] [address]- 2077 Feb, [facility] [place] [facility] [address] [id number] [place] [address]- 3967 28 Jan, 2013 [facility] [place] [facility] [address] [facility] [id number] [place] [address]- 8638 21 Jan, 2013 [facility] [place] [facility] [address] [id number] [place] [address]- 8466 19 Jan, 2013 [facility] [place] [facility] [address] [id number] [place] 8366 14 Jan, 2013 [facility] [place] [facility] [address] [id number] [place] [address]- 8399 12 Jan, 2013 [facility] [place] [facility] [address] [facility] [id number] [place] [address]- 7350 08 Jan, 2013 [facility] [place] [facility] [address] [id number] [place] [address]- 8849 07 Jan, 2013 [facility] [place] [facility] [address] [facility] [id number] [place] [address]- 4608 04 Jan, 2013 [facility] [place] [facility] [address] [facility] [id number] [place] [address]- 6157 28 Dec, 2012 [facility] [place] [facility] [address] [facility] [id number] [place] [address]- 3162 25 Dec, 2012 [facility] [place] [facility] [address] [id number] [place] [address]- 0498 13 Dec, 2012 [facility] [place] [facility] [address] [id number] [place] [address] 11 Dec, 2012 [facility] [place] [facility] [address] [facility] [id number] [place] [address] 07 Dec, 2012 [facility] [place] [facility] [address] [facility] [id number] [place] [address] 06 Dec, 2012 [facility] [place] [facility] [address] [id number] [place] [address] 05 Dec, 2012 [facility] [address] [id number] [place] [address] Nov, [facility] [place] [facility] [address] [id number] [place] [address] 25[address] Nov, [facility] [place] [facility] [address] [id number] [place] [address] 2866 Nov, [facility] [place] [facility] [address] [id number] [place] [address] Nov, [facility] [place] [facility] [address] [id number] [place] [address] 8880 Nov, [facility] [place] [facility] [address] [id number] [place] [address] Nov, [facility] [place] [facility] [address] [id number] [place] [address] Nov, [facility] [address] [id number] [place] [address] 73[address] Oct, [facility] [address] [id number] [place] [address] 77[address] Oct, [facility] [address] [id number] [place] [address] Oct[place] [facility] [place] [facility] [address] [id number] [place] [address] Oct, [facility] [place] [facility] [address] [id number] [place] [address] Oct, [facility] [place] [facility] [address] [id number] [place] [address] 17 Oct, 2012 [facility] [place] [facility] [address] [id number] [place] [address] 2546 Oct, [facility] [place] [facility] [address] [id number] [place] [address] Oct, [facility] [place] [facility] [address] [id number] [place] [address] 8139 Oct, [facility] [place] [facility] [address] [id number] [place] [address] 0930 Oct, [facility] [place] [facility] [address] [facility] [id number] [place] [address] 1292 Oct, [facility] [place] [facility] [address] [id number] [place] [address] 1744 Oct, [facility] [place] [facility] [address] [id number] [place] [address] 365[address] Sep, [facility] [place] [facility] [address] [id number] [place] [address] Sep, [facility] [place] [facility] [address] [facility] [id number] [place] [address]- [address] Sep, [facility] [place] [facility] [address] [id number], [place] [address] Sep, [facility] [place] [facility] [address] [id number] [place] [address] 3187 Sep, [facility] [place] [facility] [address] [facility] [id number], [place] [address] 39[address] Sep, [facility] [place] [facility] [address] [id number], [place] [address] Sep, [facility] [place] [facility] [address] [id number], [place] [address] Sep, [facility] [place] [facility] [address] [id number], [place] [address] 09[address] Sep, [facility] [place] [facility] [address] [id number], [place] [address] Sep, [facility] [place] [facility] [address] [facility] [id number], [place] [address] Sep, [facility] [place] [facility] [address] [id number] [place] [address]- 9692 Aug, [facility] [place] [facility] [address] [id number] [place] [address] 3996 Aug, [facility] [place] [facility] [address] [id number] [place] [address]- 3536 Aug, [facility] [place] [facility] [address] [id number] [place] [address]- 2423 Aug, [facility] [place] [facility] [address] [id number] [place] [address]- 8317 Aug, [facility] [place] [facility] [address] [id number] [place] [address]- 3774 Aug, [facility] [place] [facility] [address] [id number] [place] [address]- 0724 Aug, [facility] [place] [facility] [address] [id number] [place] [address]- 4007 Aug, [facility] [place] [facility] [address] [id number] [place] [address]- 1165 Aug, [facility] [place] [facility] [address] [id number] [place] [address]- 0818 Aug, [facility] [place] [facility] [address] [id number] [place] [address]- 7633 Jul, [facility] [place] [facility] [address] [id number] [place] [address] 1186 20 Jul, 2012 [facility] [place] [facility] [address] [id number] [place] [address]- 5688 10 Jul, 2012 [facility] [place] [facility] [address] [id number] [place] [address]- 7029 06 Jul, 2012 [facility] [place] [facility] [address] [id number] [place] [address]- 4728 30 Jun, 2012 [facility] [place] [facility] [address] [id number] [place] [address] Jun, [facility] [place] [facility] [address] [id number] [place] [address]- 9482 Jun, [facility] [place] [facility] [address] [id number] [place] [address]- 1627 Jun, [facility] [place] [facility] [address] [id number] [place] [address]- 2604 Jun, [facility] [place] [facility] [address] [id number] [place] [address]- 0014 Jun, [facility] [place] [facility] [address] [id number] [place] [address]- 1801 Jun, [facility] [place] [facility] [address] [id number] [place] [address]- 5543 May, [facility] [place] [facility] [address] [id number] [place] [address]- 0505 May, [facility] [place] [facility] [address] [id number] [place] [address]- 2017 May, [facility] [place] [facility] [address] [id number] [place] [address]- 9515 May, [facility] [place] [facility] [address] [id number] [place] [address]- 3443 May, [facility] [place] [facility] [address] [id number] [place] [address]- 6581 Apr, [facility] [place] [facility] [address] [id number] [place] [address]- 4876 Apr, [facility] [place] [facility] [address] [id number] [place] [address]- 5918 Apr, [facility] [place] [facility] [address] [id number] [place] [address]- 9761 Apr, [facility] [place] [facility] [address] [id number] [place] [address]- 9814 Apr, [facility] [place] [facility] [address] [id number] [place] [address]- 4212 March, [facility] [address] [id number] [place] [address]- 1279 March, [facility] [place] [facility] [address] [id number] [place] [address] March, [facility] [place] [facility] [address] [id number] [place] [address]- 6671 March, [facility] [place] [facility] [address] [id number] [place] [address] March, [facility] [place] [facility] [address] [id number] [place] [address]- 1830 March, [facility] [place] [facility] [address] [id number] [place] [address]- 7973 March, [facility] [place] [facility] [address] [id number] [place] [address]- 7250 March, [facility] [place] [facility] [address] [id number] [place] [address] March, [facility] [place] [facility] [address] [id number] [place] [address] March, [facility] [place] [facility] [address] [id number] [place] [address] Feb, [facility] [place] [facility] [address] [id number] [place] [address] Feb, [facility] [place] [facility] [address] [id number] [place] [address] Feb, [facility] [place] [facility] [address] [id number] [place] [address] Feb, [facility] [place] [facility] [address] [id number] [place] [address] Feb, [facility] [place] [facility] [address] [id number] [place] [address] Feb, [facility] [place] [facility] [address] [id number] [place] [address] Feb, [facility] [address] [id number] [place] [address] Feb, [facility] [place] [facility] [address] [id number] [place] [address] Feb, [facility] [address] [id number] [place] [address] 08 Jan, 2012 [facility] [address] [id number] [place] [address] Jan, [facility] [address] [id number] [place] [address] Jan, [facility] [address] [id number] [place] [address] Jan, [facility] [address] [id number] [place] [address] Dec, [facility] [address] [id number] [place] [address] Dec, [facility] [address] [id number] [place] [address] Nov, [facility] [address] [id number] [place] [address] Nov, [facility] [address] [id number] [place] [address] Nov, [facility] [address] [id number] [place] [address] Nov, [facility] [place] [facility] [address] [id number] [place] [address] Nov, [facility] [place] [facility] [address] [id number] [place] [address] Oct, [facility] [place] [facility] [address] [id number] [place] [address] Oct, [facility] [address] [id number] [address] Oct, [facility] [id number] [address] Oct, [facility] [id number] [address] Oct, [facility] [id number] [address] Oct, [facility] [address] [id number] [address] Oct, [facility] [id number] [address] Oct, [facility] [address] [id number] [address] Sep, IMMUNIZATIONS No Known Immunizations SOCIAL HISTORY Never Assessed REASON FOR VISIT PLAN OF CARE VITAL SIGNS MEDICATIONS Unknown Medications RESULTS No Results PROCEDURES No Known procedures INSTRUCTIONS MEDICATIONS ADMINISTERED No Known Medications MEDICAL (GENERAL) HISTORY Type Description Date 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
--- OUTSIDE RECORDS SUMMARY | 2018-09-04 12:01 | XMS REPORT ---
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 Name Role Phone SHAHNAZ MARQUEZ Unavailable PROBLEMS Type Condition ICD9-CM Code GGW27-BK Code Onset Dates Condition Status SNOMED Code Problem Other chronic pain G89.29 Active 82367162 Problem Type 2 diabetes mellitus without complication, without long-term current use of insulin E11.9 Active 680088716 Problem Low back pain M54.5 Active 716557756 Problem Hypertension I10 Active 48962236 Problem Coronary artery disease I25.10 Active 59693687 Problem Hyperlipidemia E78.5 Active 13942189 Problem Peripheral vascular disease I73.9 Active 702242739 Problem Insomnia G47.00 Active 844017770 Problem Reactive depression F32.9 Active 71119671 Problem Ventral hernia without obstruction or gangrene K43.9 Active 673541118 Problem Anxiety F41.9 Active 76342147 Problem Pharyngeal dysphagia R13.13 Active [id number] ALLERGIES No Information ENCOUNTERS Encounter Location Date Diagnosis [place] [id number] [place] [address] 38983- 5056 Apr, [facility] [id number] [place] [address] 26928- 9652 Apr, [facility] [address] [facility] [place] [id number] 19 Apr, 2018 Closed compression fracture of L3 lumbar vertebra with routine healing, subsequent encounter S32.030D [facility] [address] [facility] [place] [id number] 14 Apr, 2018 Low back pain M54.5 [facility] [address] [place] [id number] 12 Apr, 2018 Coccydynia M53.3 [place] [address] [place] [id number] [place] [address] 78838- 3988 March, [facility] [address] [address] [address] March, Other chronic pain G89.29 [facility] [address], [place] [address] 3806 March, [facility] [address] 2240 March, [facility] [address], [place] [address] 2351 Feb, [facility] [address] [place] [address] 190370- 8126 Feb, Other chronic pain G89.29 [facility] [address] [place] [id number] Feb, Other chronic pain G89.29 and Anxiety F41.9 [facility] [address], [place] [address] 101[address] Feb, [facility] [address], [place] [address] 4621 Jan, [facility] [address], [place] [address]- 7598 Jan, [facility] [id number], [place] [address] 5073 Jan, [facility] [address] [id number], [place] [address] 3756 Jan, [facility] [address] [id number], [place] [address] 0852 Dec, [facility] [address] [place] [id number] Dec, Peripheral vascular disease I73.9 ; 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 ; Other chronic pain G89.29 ; Anxiety F41.9 ; Reactive depression F32.9 ; Insomnia G47.00 and Type 2 diabetes mellitus without complication, without long-term current use of insulin E11.9 [facility] [address] [id number] [place] [address] Nov [facility] [id number] [id number] Nov, Anxiety F41.9 [facility] [id number] [address] 8008 Nov, [facility] [id number] [id number] Nov, Anxiety F41.9 [facility] [address] [place] [id number] Nov, Status post surgery Z98.890 ; Confused R41.0 ; Anxiety F41.9 and Other chronic pain G89.29 [facility] [address] [id number] [id number] Nov, Other chronic pain G89.29 [facility] [address] [address] 3542 Oct, [facility] [id number] [place] [address] [id number] Oct, Other chronic pain G89.29 [facility] [address] [id number] 6006 Oct, Anxiety F41.9 [facility] [id number] [address] Sep, Other chronic pain G89.29 [facility] [address] [id number][place] [address] Sep, [facility] [address] [place] [id number] Aug, Dysuria R30.0 and Anxiety F41.9 [facility] [address] [facility] [id number], [place] [address] 5[address] Aug, [facility] [address] [id number][place] [address] Aug, Other chronic pain G89.29 [facility] [address] [id number], [place] [address] 0559 Jul, Other chronic pain G89.29 [facility] [id number] [address] Jun, [facility] [id number] [address] Jun, Other chronic pain G89.29 [facility] [address], [place] [address] 8160 Jun, [facility] [address] [place] [address] 08328- 5257 May, Other chronic pain G89.29 [facility] [address], [place] [address] 5940 Apr, Other chronic pain G89.29 [facility] [employer] [address] [place] [id number] Apr, Reactive depression F32.9 and Pharyngeal dysphagia R13.13 [facility] [address], [place] [address] 4246 Apr, Urinary tract infection without hematuria, site unspecified N39.0 [facility] [address], [place] [address] 5965 March, Other chronic pain G89.29 [facility] [address], [place] [address]- 8947 Feb, Other chronic pain G89.29 [facility] [address] [id number], [place] [address] 0199 Feb, [facility] [id number] [place] [id number] Feb, [facility] [address] [place] [id number] Feb, Dysuria R30.0 and Ventral hernia without obstruction or gangrene K43.9 [facility] [address], [place] [address]- 0837 Jan, Other chronic pain G89.29 [facility] [id number] [place] [address] [id number] Dec, Other chronic pain G89.29 [facility] [address], [place] [address]- 6941 Nov, Other chronic pain G89.29 Via [facility] [employer] [address] [facility] [place] [id number] Nov, Lymphadenitis I88.9 [facility] [id number] [place] [address] 99810- 2811 Nov, Other chronic pain G89.29 [facility] [id number] [place] [address] 81950- 1613 Nov, [facility] [id number] [place] [address] [id number] Nov, Other chronic pain G89.29 [facility] [address] [place] [id number] Oct, Low back pain M54.5 ; Hypertension I10 and Type 2 diabetes mellitus without complication, without long-term current use of insulin E11.9 [facility] [address], [place] [address]- 7433 Oct, [facility] [id number] [place] [address] 65950- 6398 Oct, [facility] [id number] [place] [address] 03976- 5709 Oct, [facility] [id number] [place] [address] 41922- 5215 Oct, [facility] [id number] [place] [address] 34499- 1412 Sep, [facility] [address] [place] [address] 08203- 8689 Sep, [facility] [address] [facility] [id number], [place] [address]- 3192 Aug, Other chronic pain G89.29 [facility] [address] [facility] [id number], [place] [address]- 1192 Jul, [facility] [address] [facility] [id number], [place] [address]- 7358 Jul, [facility] [address] [facility] [id number], [place] [address]- 2553 Jul, [facility] [address] [facility] [id number], [place] [address]- 4635 Jun, [facility] [address] [facility] [id number], [place] [address]- 4409 Jun, Via [facility] [place] [address] [facility] [place] [id number] Jun, Low back pain M54.5 ; Other chronic pain G89.29 and Coronary artery disease I25.10 [facility] [address] [facility] [id number], [place] [address]- 7796 Jun, [facility] [address] [facility] [id number], [place] [address]- 3572 May, [facility] [address] [id number], [place] [address]- 0182 May, [facility] [address] [facility] [id number], [place] [address]- 4613 May, Other chronic pain G89.29 [facility] [address] [facility] [id number], [place] [address]- 2413 May, [facility] [address] [facility] [id number], [place] [address]- 1802 Apr, [facility] [address] [facility] [id number], [place] [address]- 7649 17 Apr, 2016 Acute cystitis without hematuria N30.00 [facility] [address] [facility] [id number] [place] [address] 05649- 0915 16 Apr, 2016 Acute cystitis without hematuria N30.00 ; Coronary artery disease I25.10 ; Low back pain M54.5 and Other chronic pain G89.29 [facility] [id number] [place] [address] 43652- 1675 13 Apr, 2016 Other chronic pain G89.29 [facility] [id number] [place] [address] 85650- 6933 March, Other chronic pain G89.29 [facility] [id number] [place] [address] 07739- 5063 Feb, [facility] [id number] [place] [address] 74428- 9174 Feb, Arthritis M19.90 [facility] [id number] [place] [address] 16578- 0403 Feb, [facility] [id number] [place] [address] 00244- 8391 Jan, [facility] [id number] [place] [address] 67935- 4981 Jan, [facility] [id number] [place] [address] 16696- 6518 Jan, Other chronic pain G89.29 [facility] [id number] [place] [address] 08535- 9988 Jan, Hypertension I10 ; Coronary artery disease I25.10 and Insomnia G47.00 [facility] [id number] [place] [address] 74972- 8789 Jan, [facility] [id number] [place] [address] 83759- 2948 Dec, Right hip pain M25.551 [facility] [id number] [place] [address] 18424- 7402 Dec, [facility] [id number] [place] [address] [place] [address]- 6853 Dec, [facility] [address], [place] [address]- 0776 Dec, [facility] [address], [place] [address]- 2936 Dec, Other chronic pain G89.29 [facility] [address] [place] [address] 77254- 0866 Dec, [facility] [address], [place] [address]- 3727 Nov, [facility] [address] [place] [address] 89077- 9317 Nov, Other chronic pain G89.29 [facility] [address] [place] [address] 30876- 4345 Nov, Right hip pain M25.551 and Coronary artery disease I25.10 [facility] [address], [place] [address]- 5148 Nov, Other chronic pain G89.29 [facility] [address], [place] [address]- 1170 Oct, [facility] [address], [place] [address]- 1098 Oct, [facility] [address], [place] [address]- 6070 Sep, [facility] [address], [place] [address] 254 Sep, [facility] [address], [place] [address]- 8436 Aug, [facility] [address], [place] [address]- 2204 Aug, Hypertension I10 ; Coronary artery disease I25.10 and Arthritis M19.90 [facility] [address] [place] [address]- 2298 Jun, [facility] [address] [facility] [id number] [place] [address]- 9349 Jun, Essential hypertension, benign 401.1 ; Other chronic pain 338.29 and Chronic airway obstruction, not elsewhere classified 496 [facility] [address] [facility] [id number] [place] [address]- 1099 Jun, [facility] [address] [facility] [id number] [place] [address]- 2996 Jun, [facility] [address] [facility] [id number] [place] [address]- 7236 Jun, [facility] [address] [facility] [id number] [place] [address]- 7121 May, [facility] [address] [place] [address]- 0883 May, [facility] [address] [place] [address]- 6730 Apr, [facility] [address] [place] [address]- 2416 Apr, [facility] [address] [place] [address]- 0341 Apr, [facility] [address], [place] [address]- 5180 March, [facility] [id number], [place] [address]- 7227 March, [facility] [address] [id number] [place] [address]- 8847 March, [facility] [address] [place] [address]- 7850 March, [facility] [address] [id number] [place] [address]- 0370 March, Sialadenitis 527.2 [facility] [place] [facility] [address] [id number] [place] [address]- 6250 Feb, [facility] [place] [facility] [address] [id number] [place] [address]- 2685 Feb, [facility] [place] [facility] [address] [id number] [place] [address]- 2681 Feb, [facility] [place] [facility] [address] [id number] [place] [address]- 0844 Feb, [facility] [place] [facility] [address] [id number] [place] [address]- 0225 Feb, [facility] [place] [facility] [address] [id number] [place] [address]- 4822 Jan, [facility] [place] [facility] [address] [facility] [id number] [place] [address]- 7571 Jan, [facility] [place] [facility] [address] [facility] [id number] [place] [address]- 2262 Jan, [facility] [place] [facility] [address] [id number] [place] [address]- 6682 Jan, [facility] [place] [facility] [address] [facility] [id number] [place] [address]- 7715 Jan, [facility] [place] [facility] [address] [facility] [id number] [place] [address]- 7748 Jan, [facility] [place] [facility] [address] [id number], [place] [address]- 5162 Dec, [facility] [place] [facility] [address] [id number] [place] [address]- 9408 Dec, [facility] [place] [facility] [address] [id number] [place] [address]- 6261 Dec, [facility] [place] [facility] [address] [facility] [id number] [place] [address]- 9770 Dec, [facility] [place] [facility] [address] [facility] [id number] [place] [address]- 5477 Dec, [facility] [place] [facility] [address] [id number] [place] [address]- 4244 Dec, [facility] [place] [facility] [address] [id number] [place] [address]- 8182 Nov, [facility] [place] [facility] [address] [id number] [place] [address]- 4607 Nov, [facility] [place] [facility] [address] [id number] [place] [address]- 5471 Nov, [facility] [place] [facility] [address] [id number] [place] [address]- 0881 Nov, [facility] [place] [facility] [address] [id number] [place] [address]- 5127 Nov, [facility] [place] [facility] [address] [id number] [place] [address]- 9603 Nov, [facility] [place] [facility] [address] [id number] [place] [address]- 0227 Nov, [facility] [place] [facility] [address] [id number] [place] [address]- 7636 Nov, [facility] [place] [facility] [address] [id number] [place] [address]- 0046 Nov, [facility] [place] [facility] [address] [id number] [place] [address]- 5575 Nov, [facility] [place] [facility] [address] [id number], [place] [address]- 8493 Nov, [facility] [place] [facility] [address] [id number] [place] [address]- 2568 Nov, [facility] [place] [facility] [address] [id number] [place] [address]- 9798 Nov, [facility] [place] [facility] [address] [id number], [place] [address]- 6990 Nov, [facility] [place] [facility] [address] [id number] [place] [address]- 6306 Oct, [facility] [place] [facility] [address] [id number] [place] [address]- 3073 Oct, [facility] [place] [facility] [address] [id number] [place] [address]- 3601 Oct, [facility] [place] [facility] [address] [id number] [place] [address]- 9635 Oct, [facility] [place] [facility] [address] [id number] [place] [address]- 5379 Oct, [facility] [place] [facility] [address] [id number] [place] [address]- 7490 Oct, [facility] [place] [facility] [address] [id number] [place] [address]- 8999 Oct, [facility] [place] [facility] [address] [id number] [place] [address]- 6434 Oct, [facility] [place] [facility] [address] [id number] [place] [address]- 5325 Oct, [facility] [place] [facility] [address] [id number] [place] [address]- 9406 Sep, [facility] [place] [facility] [address] [id number] [place] [address]- 2961 Sep, [facility] [place] [facility] [address] [id number] [place] [address]- 2786 Sep, [facility] [place] [facility] [address] [id number] [place] [address]- 7371 Sep, [facility] [place] [facility] [address] [id number] [place] [address]- 1797 Sep, [facility] [place] [facility] [address] [id number] [place] [address]- 9121 Sep, [facility] [place] [facility] [address] [id number], [place] [address]- 6728 Sep, [facility] [place] [facility] [address] [id number] [place] [address]- 3510 Sep, [facility] [place] [facility] [address] [id number] [place] [address]- 0765 Sep, [facility] [place] [facility] [address] [id number] [place] [address]- 0735 Sep, [facility] [place] [facility] [address] [id number] [place] [address]- 0322 Sep, [facility] [place] [facility] [address] [id number] [place] [address]- 5927 Sep, [facility] [place] [facility] [address] [id number] [place] [address]- 0314 Aug, [facility] [place] [facility] [address] [id number] [place] [address]- 6604 Aug, [facility] [place] [facility] [address] [id number], [place] [address]- 1237 Aug, [facility] [place] [facility] [address] [id number] [place] [address]- 1788 Aug, [facility] [place] [facility] [address] [id number] [place] [address]- 9442 Aug, [facility] [place] [facility] [address] [id number], [place] [address]- 3588 Aug, [facility] [place] [facility] [address] [id number], [place] [address]- 6977 Aug, [facility] [place] [facility] [address] [id number] [place] [address]- 8099 Aug, [facility] [place] [facility] [address] [id number], [place] [address]- 6036 30 Jul, 2014 [facility] [place] [facility] [address] [id number] [place] [address]- 4270 30 Jul, 2014 [facility] [place] [facility] [address] [id number] [place] [address]- 9849 30 Jul, 2013 [facility] [place] [facility] [address] [id number] [place] [address]46 30 Jul, 2013 [facility] [place] [facility] [address] [id number] [place] [address]46 25 Jul, 2013 [facility] [place] [facility] [address] [id number] [place] [address] 25 Jul, 2013 [facility] [place] [facility] [address] [id number] [place] [address]46 15 Jul, 2013 [facility] [place] [facility] [address] [id number] [place] [address] 15 Jul, 2014 [facility] [place] [facility] [address] [id number] [place] [address] Jul, [facility] [place] [facility] [address] [id number] [place] [address] Jul, [facility] [place] [facility] [address] [id number] [place] [address] Jun, [facility] [place] [facility] [address] [id number] [place] [address] Jun, [facility] [place] [facility] [address] [id number] [place] [address] Jun, [facility] [place] [facility] [address] [id number] [place] [address] 2544 Jun, [facility] [place] [facility] [address] [id number] [place] [address] Jun, [facility] [place] [facility] [address] [id number] [place] [address] Jun, [facility] [place] [facility] [address] [id number] [place] [address] Jun, [facility] [place] [facility] [address] [id number] [place] [address] Jun, [facility] [place] [facility] [address] [id number] [place] [address] Jun, [facility] [place] [facility] [address] [id number] [place] [address] Jun, [facility] [place] [facility] [address] [id number] [place] [address] Jun, [facility] [place] [facility] [address] [id number] [place] [address] Jun, [facility] [place] [facility] [address] [id number] [place] [address]- [address] Jun, [facility] [place] [facility] [address] [id number] [place] [address] Jun, [facility] [place] [facility] [address] [id number] [place] [address]- 09[address] Jun, [facility] [place] [facility] [address] [id number] [place] [address]- [address] Jun, [facility] [place] [facility] [address] [id number] [place] [address]- [address] Jun, [facility] [place] [facility] [address] [id number] [place] [address]- [address] Jun, [facility] [place] [facility] [address] [id number] [place] [address]- [address] Jun, [facility] [place] [facility] [address] [id number] [place] [address]- [address] Jun, [facility] [place] [facility] [address] [id number] [place] [address]- [address] Jun, [facility] [place] [facility] [address] [id number] [place] [address]- [address] Jun, [facility] [place] [facility] [address] [id number] [place] [address] May, [facility] [place] [facility] [address] [id number] [place] [address]- 9[address] May, [facility] [place] [facility] [address] [id number] [place] [address] May, [facility] [place] [facility] [address] [id number] [place] [address] May, [facility] [place] [facility] [address] [id number] [place] [address] May, [facility] [place] [facility] [address] [id number] [place] [address] May, [facility] [place] [facility] [address] [id number] [place] [address] May, [facility] [place] [facility] [address] [id number] [place] [address] May, [facility] [place] [facility] [address] [id number] [place] [address] May, [facility] [place] [facility] [address] [id number] [place] [address] May, [facility] [place] [facility] [address] [id number] [place] [address]- [address] May, [facility] [place] [facility] [address] [id number] [place] [address]- [address] May, [facility] [place] [facility] [address] [id number] [place] [address] May, [facility] [place] [facility] [address] [id number] [place] [address]- [address] Apr, [facility] [place] [facility] [address] [id number] [place] [address] Apr, [facility] [place] [facility] [address] [id number] [place] [address]- [address] Apr, [facility] [place] [facility] [address] [id number] [place] [address]- [address] Apr, [facility] [place] [facility] [address] [id number] [place] [address] Apr, [facility] [place] [facility] [address] [id number] [place] [address] Apr, [facility] [place] [facility] [address] [id number] [place] [address]- [address] Apr, [facility] [place] [facility] [address] [id number] [place] [address] Apr, [facility] [place] [facility] [address] [id number] [place] [address] 87[address] Apr, [facility] [place] [facility] [address] [id number] [place] [address] March, [facility] [place] [facility] [address] [id number] [place] [address] 9[address] March, [facility] [place] [facility] [address] [id number] [place] [address] 4200 March, [facility] [place] [facility] [address] [id number] [place] [address] 3866 March, [facility] [place] [facility] [address] [id number] [place] [address] 9548 March, [facility] [place] [facility] [address] [id number] [place] [address] 2266 March, [facility] [place] [facility] [address] [id number] [place] [address] 0497 March, [facility] [place] [facility] [address] [id number] [place] [address] 3414 March, [facility] [place] [facility] [address] [id number] [place] [address] March, [facility] [place] [facility] [address] [id number] [place] [address] March, [facility] [place] [facility] [address] [id number] [place] [address]- 1046 March, [facility] [place] [facility] [address] [id number] [place] [address]- 4313 March, [facility] [place] [facility] [address] [id number] [place] [address]- 6037 March, [facility] [place] [facility] [address] [id number] [place] [address]- 5762 March, [facility] [place] [facility] [address] [id number] [place] [address]- 9945 March, [facility] [place] [facility] [address] [id number] [place] [address]- 2262 March, [facility] [place] [facility] [address] [id number] [place] [address]- 5067 March, [facility] [place] [facility] [address] [id number] [place] [address]- 3375 March, [facility] [place] [facility] [address] [id number] [place] [address]- 1880 March, [facility] [place] [facility] [address] [id number] [place] [address]- 1454 March, [facility] [place] [facility] [address] [id number] [place] [address] 1890 Feb, [facility] [place] [facility] [address] [id number] [place] [address]- 9180 Feb, [facility] [place] [facility] [address] [id number] [place] [address]- 4228 Feb, [facility] [place] [facility] [address] [id number] [place] [address]- 8818 Feb, [facility] [place] [facility] [address] [id number] [place] [address]- 0509 Feb, [facility] [place] [facility] [address] [id number] [place] [address]- 3791 Feb, [facility] [place] [facility] [address] [id number] [place] [address]- 9804 11 Feb, 2014 [facility] [place] [facility] [address] [id number] [place] [address]- 1214 Feb, [facility] [place] [facility] [address] [id number] [place] [address]- 3658 Jan, [facility] [place] [facility] [address] [id number] [place] [address]- 5263 Jan, [facility] [place] [facility] [address] [id number] [place] [address]- 4037 Jan, [facility] [place] [facility] [address] [id number] [place] [address]- 7744 Jan, [facility] [place] [facility] [address] [id number] [place] [address]- 4878 Jan, [facility] [place] [facility] [address] [id number] [place] [address]- 6540 Jan, [facility] [place] [facility] [address] [id number] [place] [address]- 6038 Jan, [facility] [place] [facility] [address] [id number] [place] [address]- 2102 Jan, [facility] [place] [facility] [address] [id number] [place] [address]- 6784 Jan, [facility] [place] [facility] [address] [id number] [place] [address]- 1602 Jan, [facility] [place] [facility] [address] [id number] [place] [address]- 2667 Dec, [facility] [place] [facility] [address] [id number] [place] [address]- 6604 Dec, [facility] [place] [facility] [address] [id number] [place] [address]- 3115 Dec, [facility] [place] [facility] [address] [id number] [place] [address] 8[address] 2013 [facility] [place] [facility] [address] [id number] [place] [address]- 8476 2013 [facility] [place] [facility] [address] [id number] [place] [address]- 1742 13 Dec, 2013 [facility] [place] [facility] [address] [id number] [place] [address]- 4329 Dec, [facility] [place] [facility] [address] [id number] [place] [address]- 3305 Dec, [facility] [place] [facility] [address] [id number] [place] [address]- 7392 Nov, [facility] [place] [facility] [address] [id number] [place] [address]- 1168 Nov, [facility] [place] [facility] [address] [id number] [place] [address]- 7567 Nov, [facility] [place] [facility] [address] [id number] [place] [address]- 0631 Nov, [facility] [place] [facility] [address] [id number] [place] [address]- 6414 Nov, [facility] [place] [facility] [address] [id number] [place] [address]- 5996 Nov, [facility] [place] [facility] [address] [id number] [place] [address]- 9987 Nov, [facility] [place] [facility] [address] [id number] [place] [address]- 7804 Nov, [facility] [place] [facility] [address] [id number] [place] [address]- 1498 Nov, [facility] [place] [facility] [address] [id number] [place] [address]- 7249 Nov, [facility] [place] [facility] [address] [id number] [place] [address]- 6597 Nov, [facility] [place] [facility] [address] [id number] [place] [address]- 1102 15 Nov, 2013 [facility] [address] [id number] [place] [address]- 3165 15 Nov, 2013 [facility] [address] [id number] [place] [address] 30 Oct, 2013 [facility] [address] [id number] [place] [address]- 1018 30 Oct, 2013 [facility] [address] [id number] [place] [address]- 8143 Oct, [facility] [address] [id number] [place] [address] Oct, [facility] [address] [id number] [place] [address]- 1487 Oct, [facility] [address] [id number] [place] [address]- 3062 Oct, [facility] [address] [id number] [place] [address]- 9446 18 Oct, 2013 [facility] [address] [id number] [place] [address]- 9905 18 Oct, 2013 [facility] [address] [id number] [place] [address]- 7715 Oct, [facility] [address] [id number] [place] [address]- 9005 17 Oct, 2013 [facility] [address] [id number] [place] [address]- 6151 Oct, [facility] [address] [id number] [place] [address]- 6334 Oct, [facility] [place] [facility] [address] [id number] [place] [address]- 7337 Oct, [facility] [address] [id number] [place] [address]- 6522 Oct, [facility] [place] [facility] [address] [id number] [place] [address]- 5357 Sep, [facility] [place] [facility] [address] [id number] [place] [address]- 6411 Sep, [facility] [place] [facility] [address] [id number] [place] [address]- 2447 Sep, [facility] [place] [facility] [address] [id number] [place] [address]- 5337 Sep, [facility] [place] [facility] [address] [id number] [place] [address]- 2339 Sep, [facility] [place] [facility] [address] [id number] [place] [address]- 9115 Sep, [facility] [place] [facility] [address] [id number] [place] [address]- 0282 Sep, [facility] [place] [facility] [address] [id number] [place] [address]- 0047 Sep, [facility] [place] [facility] [address] [id number] [place] [address]- 1245 Sep, [facility] [place] [facility] [address] [id number] [place] [address]- 9942 Sep, [facility] [place] [facility] [address] [id number] [place] [address]- 8606 Aug, [facility] [place] [facility] [address] [id number] [place] [address]- 3743 Aug, [facility] [place] [facility] [address] [id number] [place] [address]- 4745 Aug, [facility] [place] [facility] [address] [id number] [place] [address]- 4620 Aug, [facility] [place] [facility] [address] [id number] [place] [address]- 2079 Aug, [facility] [place] [facility] [address] [id number], [place] [address]- 2844 23 Aug, 2013 [facility] [place] [facility] [address] [id number] [place] [address]- 3481 23 Aug, 2013 [facility] [place] [facility] [address] [id number] [place] [address]- 7076 23 Aug, 2013 [facility] [place] [facility] [address] [id number] [place] [address]- 9827 22 Aug, 2013 [facility] [place] [facility] [address] [id number], [place] [address]- 4112 22 Aug, 2012 [facility] [place] [facility] [address] [id number] [place] [address]- 6847 18 Aug, 2013 [facility] [place] [facility] [address] [id number], [place] [address]- 2758 18 Aug, 2013 [facility] [place] [facility] [address] [id number] [place] [address]- 9307 18 Aug, 2013 [facility] [place] [facility] [address] [id number], [place] [address]- 6984 18 Aug, 2013 [facility] [place] [facility] [address] [id number], [place] [address]- 5709 17 Aug, 2013 [facility] [place] [facility] [address] [id number], [place] [address]- 0196 14 Aug, 2013 [facility] [place] [facility] [address] [id number], [place] [address]- 6690 14 Aug, 2013 [facility] [place] [facility] [address] [id number], [place] [address]- 0138 Aug, [facility] [place] [facility] [address] [id number] [place] [address]- 0005 20 Jul, 2012 [facility] [place] [facility] [address] [id number], [place] [address]- 2659 19 Jul, 2012 [facility] [place] [facility] [address] [id number], [place] [address]- 9968 18 Jul, 2012 [facility] [place] [facility] [address] [id number] [place] [address]- 0001 Jul, [facility] [address] [id number] [place] [address]- 9845 Jul, [facility] [address] [id number] [place] [address]- 4328 Jun, [facility] [address] [id number] [place] [address]- 0940 Jun, [facility] [address] [id number] [place] [address]- 8047 Jun, [facility] [address] [id number] [place] [address]- 0467 Jun, [facility] [address] [id number] [place] [address]- 8437 Jun, [facility] [address] [id number] [place] [address]- 3390 Jun, [facility] [address] [id number] [place] [address]- 7042 Jun, [facility] [address] [id number] [place] [address]- 4385 Jun, [facility] [address] [id number] [place] [address]- 2453 Jun, [facility] [place] [facility] [address] [id number] [place] [address]- 2048 Jun, [facility] [address] [id number] [place] [address]- 5004 May, [facility] [place] [facility] [address] [id number] [place] [address]- 1522 May, [facility] [place] [facility] [address] [id number] [place] [address]- 7629 May, [facility] [place] [facility] [address] [id number] [place] [address]- 1047 May, [facility] [address] [id number] [place] [address]- 9889 May, [facility] [place] [facility] [address] [id number] [place] [address]- 2893 May, [facility] [place] [facility] [address] [id number] [place] [address]- 4496 May, [facility] [place] [facility] [address] [id number] [place] [address]- 0721 May, [facility] [place] [facility] [address] [id number] [place] [address]- 2170 May, [facility] [place] [facility] [address] [id number] [place] [address]- 6967 Apr, [facility] [place] [facility] [address] [id number] [place] [address]- 4865 Apr, [facility] [place] [facility] [address] [id number] [place] [address]- 4400 Apr, [facility] [place] [facility] [address] [id number] [place] [address]- 8909 Apr, [facility] [place] [facility] [address] [id number], [place] [address]- 8575 Apr, [facility] [place] [facility] [address] [id number], [place] [address]- 8847 Apr, [facility] [place] [facility] [address] [id number], [place] [address]- 1042 Apr, [facility] [place] [facility] [address] [id number] [place] [address]- 6234 March, [facility] [place] [facility] [address] [id number] [place] [address]- 4614 Feb, [facility] [place] [facility] [address] [id number], [place] [address]- 7163 Feb, [facility] [place] [facility] [address] [id number], [place] [address]- 4186 12 Feb, 2013 [facility] [address] [id number] [place] [address]- 3784 28 Jan, 2013 [facility] [place] [facility] [address] [id number] [place] [address]- 0467 21 Jan, 2013 [facility] [address] [id number] [place] [address]- 9163 19 Jan, 2013 [facility] [place] [facility] [address] [id number] [place] [address]- 2209 14 Jan, 2013 [facility] [address] [id number] [place] [address]- 4032 12 Jan, 2013 [facility] [address] [facility] [id number] [place] [address]- 4598 08 Jan, 2013 [facility] [address] [facility] [id number] [place] [address]- 8137 07 Jan, 2013 [facility] [place] [facility] [address] [facility] [id number] [place] [address]- 4312 04 Jan, 2013 [facility] [address] [id number] [place] [address]- 3676 28 Dec, 2012 [facility] [address] [facility] [id number] [place] [address]- 1749 25 Dec, 2012 [facility] [place] [facility] [address] [facility] [id number] [place] [address]- 1097 13 Dec, 2012 [facility] [place] [facility] [address] [facility] [id number] [place] [address]- 8087 11 Dec, 2012 [facility] [place] [facility] [address] [id number] [place] [address]- 5782 07 Dec, 2012 [facility] [place] [facility] [address] [id number] [place] [address]- 8185 06 Dec, 2012 [facility] [place] [facility] [address] [facility] [id number], [place] [address]- 0975 05 Dec, 2012 [facility] [place] [facility] [address] [id number] [place] [address]- 6859 Nov, [facility] [address] [id number] [place] [address]- 3777 24 Nov, 2012 [facility] [address] [id number] [place] [address]- 5976 Nov, [facility] [address] [id number] [place] [address]- 1997 Nov, [facility] [address] [id number] [place] [address]- 3908 Nov, [facility] [address] [id number] [place] [address]- 0846 Nov, [facility] [address] [id number] [place] [address]- 1264 Nov, [facility] [address] [id number] [place] [address]- 5226 Oct, [facility] [address] [id number] [place] [address]- 4958 Oct, [facility] [address] [id number] [place] [address]- 8776 Oct, [facility] [place] [facility] [address] [id number] [place] [address]- 0861 Oct, [facility] [place] [facility] [address] [id number] [place] [address]- 3176 Oct, [facility] [place] [facility] [address] [id number] [place] [address]- 0995 Oct, [facility] [place] [facility] [address] [id number] [place] [address]- 7536 Oct, [facility] [place] [facility] [address] [id number] [place] [address]- 2546 Oct, [facility] [place] [facility] [address] [id number], [place] [address]- 9996 Oct, [facility] [place] [facility] [address] [id number] [place] [address]- 3994 Oct, [facility] [place] [facility] [address] [id number]- 9403 Oct, [facility] [place] [facility] [address] [facility] [id number] [place] [address]- 5763 Oct, [facility] [place] [facility] [address] [id number], [place] [address]- 3168 Sep, [facility] [place] [facility] [address] [id number] [place] [address]- 2365 Sep, [facility] [place] [facility] [address] [id number] [place] [address]- 6180 Sep, [facility] [place] [facility] [address] [id number], [place] [address]- 2063 Sep, [facility] [place] [facility] [address] [id number], [place] [address]- 2350 Sep, [facility] [place] [facility] [address] [id number], [place] [address]- 4673 Sep, [facility] [place] [facility] [address] [facility] [id number], [place] [address]- 1987 Sep, [facility] [place] [facility] [address] [id number], [place] [address]- 7422 Sep, [facility] [place] [facility] [address] [id number], [place] [address]- 5685 Sep, [facility] [place] [facility] [address] [id number], [place] [address]- 6637 Sep, [facility] [place] [facility] [address] [id number], [place] [address]- 1407 Sep, [facility] [place] [facility] [address] [id number] [place] [address]- 6347 Aug, [facility] [place] [facility] [address] [id number] [place] [address]- 6984 Aug, [facility] [place] [facility] [address] [id number] [place] [address]- 1449 Aug, [facility] [place] [facility] [address] [id number] [place] [address]- 6196 Aug, [facility] [place] [facility] [address] [id number] [place] [address]- 0721 Aug, [facility] [place] [facility] [address] [id number] [place] [address]- 0568 Aug, [facility] [place] [facility] [address] [id number] [place] [address]- 8354 Aug, [facility] [place] [facility] [address] [id number] [place] [address]- 3181 Aug, [facility] [place] [facility] [address] [id number] [place] [address]- 2855 Aug, [facility] [place] [facility] [address] [id number] [place] [address]- 0072 Aug, [facility] [place] [facility] [address] [id number] [place] [address]- 6771 22 Jul, 2012 [facility] [place] [facility] [address] [id number] [place] [address]- 3134 20 Jul, 2012 [facility] [place] [facility] [address] [id number] [place] [address]- 6571 10 Jul, 2012 [facility] [place] [facility] [address] [id number] [place] [address] 06 Jul, 2012 [facility] [place] [facility] [address] [id number] [place] [address] 30 Jun, 2012 [facility] [place] [facility] [address] [id number] [place] [address] Jun, [facility] [place] [facility] [address] [id number] [place] [address] Jun, [facility] [place] [facility] [address] [id number] [place] [address] Jun, [facility] [place] [facility] [address] [id number] [place] [address] Jun, [facility] [place] [facility] [address] [id number] [place] [address] Jun, [facility] [place] [facility] [address] [id number] [place] [address] Jun, [facility] [place] [facility] [address] [id number] [place] [address] May, [facility] [place] [facility] [address] [id number] [place] [address] May, [facility] [place] [facility] [address] [id number] [place] [address] May, [facility] [place] [facility] [address] [id number] [place] [address] May, [facility] [place] [facility] [address] [id number] [place] [address] May, [facility] [place] [facility] [address] [id number] [place] [address] Apr, [facility] [place] [facility] [address] [id number] [place] [address] Apr, [facility] [place] [facility] [address] [id number] [place] [address] Apr, [facility] [place] [facility] [address] [id number] [place] [address] Apr, [facility] [place] [facility] [address] [id number] [place] [address] Apr, [facility] [place] [facility] [address] [id number] [place] [address] March, [facility] [place] [facility] [address] [id number] [place] [address] March, [facility] [address] [id number] [place] [address] March, [facility] [place] [facility] [address] [id number] [place] [address] March, [facility] [address] [id number] [place] [address] March, [facility] [place] [facility] [address] [id number] [place] [address] March, [facility] [address] [id number] [place] [address] March, [facility] [address] [id number] [place] [address] March, [facility] [address] [id number] [place] [address] March, [facility] [address] [id number] [place] [address] March, [facility] [address] [id number] [place] [address] 30 Feb, 2012 [facility] [place] [facility] [address] [id number] [place] [address] Feb, [facility] [place] [facility] [address] [id number] [place] [address] 26 Feb, 2012 [facility] [place] [facility] [address] [id number] [place] [address] 19 Feb, 2012 [facility] [place] [facility] [address] [id number] [place] [address] 17 Feb, 2012 [facility] [place] [facility] [address] [id number] [place] [address] Feb, [facility] [place] [facility] [address] [id number] [place] [address] 12 Feb, 2012 [facility] [place] [facility] [address] [id number] [place] [address] Feb, [facility] [address] [id number] [place] [address] Feb, [facility] [place] [facility] [address] [id number] [place] [address] Jan, [facility] [place] [facility] [address] [id number] [place] [address] Jan, [facility] [place] [facility] [address] [id number] [place] [address] Jan, [facility] [place] [facility] [address] [id number] [place] [address] Jan, [facility] [address] [id number] [place] [address] Dec, [facility] [place] [facility] [address] [id number] [place] [address] Dec, [facility] [place] [facility] [address] [id number] [place] [address] Nov, [facility] [address] [id number] [place] [address] Nov, [facility] [place] [facility] [address] [id number] [place] [address] Nov, [facility] [place] [facility] [address] [id number] [place] [address] Nov, [facility] [place] [facility] [address] [id number] [place] [address] Nov, [facility] [place] [facility] [address] [id number] [place] [address] Oct, [facility] [place] [facility] [address] [id number] [place] [address] Oct, [facility] [place] [facility] [address] [id number], [place] [address] Oct, [facility] [address] [facility] [id number], [place] [address] Oct, [facility] [address] [id number] [address] Oct, [facility] [address] [id number] [address] [address] Oct, [facility] [address] [id number], [place] [address] Oct, [facility] [address] [id number], [place] [address] Oct, [facility] [address] [id number], [place] [address] Sep, IMMUNIZATIONS No Known Immunizations SOCIAL HISTORY Never Assessed REASON FOR VISIT [facility] script PLAN OF CARE VITAL SIGNS MEDICATIONS Medication Instructions Dosage Frequency Start Date End Date Duration Status Ativan 0.5 MG Orally daily at HS and BID as needed 1 tablet Aug, 30 days Active RESULTS No Results PROCEDURES No Known procedures INSTRUCTIONS MEDICATIONS ADMINISTERED No Known Medications MEDICAL (GENERAL) HISTORY Type Description Date 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
[2018-09-04 12:02] LABS: BILIRUBIN,URINE NEGATIVE (NEGATIVE); CLARITY,URINE CLEAR; COLOR,URINE YELLOW; GLUCOSE, URINE (UA) NEGATIVE (NEGATIVE); KETONES,URINE NEGATIVE (NEGATIVE); LEUKOCYTE ESTERASE ,URINE 3+ (NEGATIVE); NITRITE,URINE NEGATIVE (NEGATIVE); PH,URINE 7 (5-9); PROTEIN,URINE 3+ (NEGATIVE); UROBILINOGEN,URINE NORMAL (NORMAL)
--- OUTSIDE RECORDS SUMMARY | 2018-09-04 12:02 | XMS REPORT ---
Author Author SHAHNAZ MARQUEZ Organization [facility] Address [address] [place] [address] Care Team Providers Care Systems Security Analyst Name Role Phone SHAHNAZ MARQUEZ Unavailable PROBLEMS Type Condition ICD9-CM Code [id number] Code Onset Dates Condition Status SNOMED Code Problem Other chronic pain G89.29 Active 37002324 Problem Type 2 diabetes mellitus without complication, without long-term current use of insulin E11.9 Active 126429154 Problem Low back pain M54.5 Active 117209640 Problem Hypertension I10 Active 80760227 Problem Coronary artery disease I25.10 Active 47278337 Problem Hyperlipidemia E78.5 Active 17936685 Problem Peripheral vascular disease I73.9 Active 575305836 Problem Insomnia G47.00 Active 051899112 Problem Reactive depression F32.9 Active 17782500 Problem Ventral hernia without obstruction or gangrene K43.9 Active 147035654 Problem Anxiety F41.9 Active 94624428 Problem Pharyngeal dysphagia R13.13 Active [id number] ALLERGIES No Information ENCOUNTERS Encounter Location Date Diagnosis [place] [id number] [place] [address] 41214- 8371 Apr, [facility] [id number] [place] [address] 70407- 9444 Apr, [facility] [address] [facility] [place] [id number] 19 Apr, 2018 Closed compression fracture of L3 lumbar vertebra with routine healing, subsequent encounter S32.030D [facility] [address] [place] [place] [id number] 14 Apr, 2018 Low back pain M54.5 [facility] [address] [place] [id number] 12 Apr, 2018 Coccydynia M53.3 [place] [address] [place] [id number] [place] [address] 91935- 0624 March, [facility] [address] [address] [address] March, Other chronic pain G89.29 [facility] [address] [address] 6276 March, [facility] [address] 4543 March, [facility] [address], [place] [address]- 9897 Feb, [facility] [address] [place] [address] 851371- 7827 Feb, Other chronic pain G89.29 [facility] [address] [place] [id number] Feb, Other chronic pain G89.29 and Anxiety F41.9 [facility] [address] [address] 7168 Feb, [facility] [address] [address]- 8387 Jan, [facility] [address] [address]- 1715 Jan, [facility] [id number] [address]- 6470 Jan, [facility] [id number], [place] [address]- 6036 Jan, [facility] [id number] [address] 5768 Dec, [facility] [address] [place] [id number] Dec, Peripheral vascular disease I73.9 ; 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 ; Other chronic pain G89.29 ; Anxiety F41.9 ; Reactive depression F32.9 ; Insomnia G47.00 and Type 2 diabetes mellitus without complication, without long-term current use of insulin E11.9 [facility] [address] [id number] [place] [address] Nov [facility] [id number] [id number] Nov, Anxiety F41.9 [facility] [id number] [address] 4833 Nov, [facility] [id number] [id number] Nov, Anxiety F41.9 [facility] [address] [place] [id number] Nov, Status post surgery Z98.890 ; Confused R41.0 ; Anxiety F41.9 and Other chronic pain G89.29 [facility] [address] [id number][place] [address] Nov, Other chronic pain G89.29 [facility] [address] [address] 6593 Oct, [facility] [id number] [place] [address] [id number] Oct, Other chronic pain G89.29 [facility] [id number] 7956 Oct, Anxiety F41.9 [facility] [id number][place] [address] Sep, Other chronic pain G89.29 [facility] [address] [id number][place] [address] Sep, [facility] [address] [place] [id number] Aug, Dysuria R30.0 and Anxiety F41.9 [facility] [address] [facility] [id number][place] [address] 5196 Aug, [facility] [address] [id number][place] [id number] Aug, Other chronic pain G89.29 [facility] [id number], [place] [address] 6139 Jul, Other chronic pain G89.29 [facility] [address] [id number] [id number] Jun, [facility] [id number] [address] Jun, Other chronic pain G89.29 [facility] [address], [place] [address]- 7428 Jun, [facility] [address] [place] [address] 00034- 0164 May, Other chronic pain G89.29 [facility] [address]005[address]100[place], [place] [address]- 0465 Apr, Other chronic pain G89.29 [facility] [employer] [facility] [employer] [facility] [address] [place] [place] [id number] Apr, Reactive depression F32.9 and Pharyngeal dysphagia R13.13 [facility] [address]100[place], [place] [address]- 1650 Apr, Urinary tract infection without hematuria, site unspecified N39.0 [facility] [address]005[address]100[place], [place] [address]- 7590 March, Other chronic pain G89.29 [facility] [address]005[address]100[place], [place] [address]- 7630 Feb, Other chronic pain G89.29 [facility] [address] [id number], [place] [address]- 8543 Feb, [facility] [id number] [place] [address] [id number] Feb, [facility] [address] [place] [place] [id number] Feb, Dysuria R30.0 and Ventral hernia without obstruction or gangrene K43.9 [facility] [address]100[place], [place] [address]- 1585 Jan, Other chronic pain G89.29 [facility] [id number] [place] [address] [id number] Dec, Other chronic pain G89.29 [facility] [address] [address]- 4483 Nov, Other chronic pain G89.29 [facility] [address] [facility] [place] [id number] Nov, Lymphadenitis I88.9 [facility] [id number] [place] [address] 06441- 7696 Nov, Other chronic pain G89.29 [facility] [id number] [place] [address] 93216- 8774 Nov, [facility] [id number] [place] [address] [id number] Nov, Other chronic pain G89.29 [facility] [address] [place] [id number] Oct, Low back pain M54.5 ; Hypertension I10 and Type 2 diabetes mellitus without complication, without long-term current use of insulin E11.9 [facility] [address], [place] [address]- 0460 Oct, [facility] [address] [place] [address] 30797- 8156 Oct, [facility] [id number] [place] [address] 26885- 0270 Oct, [facility] [id number] [place] [address] 83751- 4952 Oct, [facility] [id number] [place] [address] 89386- 0884 Sep, [facility] [address] [place] [address] 55779- 4363 Sep, [facility] [address] [facility] [id number], [place] [address]- 0127 Aug, Other chronic pain G89.29 [facility] [address] [facility] [id number] [address]- 4629 Jul, [facility] [address] [facility] [id number], [place] [address]- 2055 Jul, [facility] [address] [facility] [id number] [address]- 9057 Jul, [facility] [address] [facility] [id number][place] [address]- 6561 Jun, [facility] [address] [facility] [id number] [address]- 0770 Jun, [facility] [address] [facility] [place] [id number] Jun, Low back pain M54.5 ; Other chronic pain G89.29 and Coronary artery disease I25.10 [facility] [address] [facility] [id number][place] [address]- 2675 Jun, [facility] [address] [facility] [id number][place] [address]- 4793 May, [facility] [address] [place] [place] [id number], [place] [address]- 1477 May, [facility] [address] [facility] [id number][place] [address]- 5187 May, Other chronic pain G89.29 [facility] [address] [facility] [id number], [place] [address]- 4455 May, [facility] [address] [facility] [id number][place] [address]- 1354 Apr, [facility] [address] [facility] [id number] [address]- 7902 17 Apr, 2016 Acute cystitis without hematuria N30.00 [facility] [address] [facility] [id number] [place] [address] 07260- 8553 16 Apr, 2016 Acute cystitis without hematuria N30.00 ; Coronary artery disease I25.10 ; Low back pain M54.5 and Other chronic pain G89.29 [facility] [address] [place] [id number] [place] [address] 15973- 7919 13 Apr, 2016 Other chronic pain G89.29 [facility] [id number] [place] [address] 62168- 7937 March, Other chronic pain G89.29 [facility] [address] [address] [id number] [place] [address] 76715- 8843 Feb, [facility] [id number] [place] [address] 32970- 7052 Feb, Arthritis M19.90 [facility] [address] [place] [id number] [place] [address] 15008- 4237 Feb, [facility] [id number] [place] [address] 26318- 7471 Jan, [facility] [address] [place] [id number] [place] [address] 32829- 0266 Jan, [facility] [address] [id number] [place] [address] 42573- 2810 Jan, Other chronic pain G89.29 [facility] [address] [place] [id number] [place] [address] 59594- 7052 Jan, Hypertension I10 ; Coronary artery disease I25.10 and Insomnia G47.00 [facility] [address] [id number] [place] [address] 89463- 7730 Jan, [facility] [id number] [place] [address] 35987- 7306 Dec, Right hip pain M25.551 [facility] [address] [id number] [place] [address] 26581- 2372 Dec, [facility] [address] [place] [id number] [place] [address] [place] [address]- 2377 Dec, [facility] [address], [place] [address]- 5776 Dec, [facility] [address], [place] [address]- 7236 Dec, Other chronic pain G89.29 [facility] [address] [place] [address] 82984- 5956 Dec, [facility] [address], [place] [address]- 6873 Nov, [facility] [address] [place] [address] 42796- 9143 Nov, Other chronic pain G89.29 [facility] [address] [place] [address] 11139- 2732 Nov, Right hip pain M25.551 and Coronary artery disease I25.10 [facility] [address], [place] [address]- 4487 Nov, Other chronic pain G89.29 [facility] [address], [place] [address]- 4189 Oct, [facility] [address], [place] [address]- 6715 Oct, [facility] [address], [place] [address]- 7653 Sep, [facility] [address], [place] [address] 2542 Sep, [facility] [address], [place] [address]- 6196 Aug, [facility] [address], [place] [address]- 5690 Aug, Hypertension I10 ; Coronary artery disease I25.10 and Arthritis M19.90 [facility] [address] [place] [address]- 5408 Jun, [facility] [address] [facility] [id number] [place] [address]- 0188 Jun, Essential hypertension, benign 401.1 ; Other chronic pain 338.29 and Chronic airway obstruction, not elsewhere classified 496 [facility] [address] [facility] [id number] [place] [address]- 5365 Jun, [facility] [address] [facility] [id number] [place] [address]- 7920 Jun, [facility] [address] [facility] [id number] [place] [address]- 3904 Jun, [facility] [address] [facility] [id number] [place] [address]- 3770 May, [facility] [address] [place] [address]- 2787 May, [facility] [address] [place] [address]- 5330 Apr, [facility] [address] [place] [address]- 1549 Apr, [facility] [address] [place] [address]- 0212 Apr, [facility] [address], [place] [address]- 5258 March, [facility] [id number], [place] [address]- 5222 March, [facility] [id number] [place] [address]- 0006 March, [facility] [address] [place] [address]- 5453 March, [facility] [address] [id number] [place] [address]- 5542 March, Sialadenitis 527.2 [facility] [place] [facility] [address] [id number] [place] [address]- 2478 Feb, [facility] [place] [facility] [address] [id number] [place] [address]- 9596 Feb, [facility] [place] [facility] [address] [id number] [place] [address]- 7843 Feb, [facility] [place] [facility] [address] [id number] [place] [address]- 8998 Feb, [facility] [place] [facility] [address] [id number] [place] [address]- 4903 Feb, [facility] [place] [facility] [address] [id number] [place] [address]- 1534 Jan, [facility] [place] [facility] [address] [facility] [id number] [place] [address]- 3290 Jan, [facility] [place] [facility] [address] [facility] [id number] [place] [address]- 4910 Jan, [facility] [place] [facility] [address] [id number] [place] [address]- 3113 Jan, [facility] [place] [facility] [address] [facility] [id number] [place] [address]- 9267 Jan, [facility] [place] [facility] [address] [facility] [id number] [place] [address]- 3021 Jan, [facility] [place] [facility] [address] [id number], [place] [address]- 5561 Dec, [facility] [place] [facility] [address] [id number] [place] [address]- 2169 Dec, [facility] [place] [facility] [address] [id number] [place] [address]- 7491 Dec, [facility] [place] [facility] [address] [facility] [id number] [place] [address]- 0733 Dec, [facility] [place] [facility] [address] [facility] [id number] [place] [address]- 1053 Dec, [facility] [place] [facility] [address] [id number] [place] [address]- 8714 Dec, [facility] [place] [facility] [address] [id number] [place] [address]- 9626 Nov, [facility] [place] [facility] [address] [id number] [place] [address]- 4956 Nov, [facility] [place] [facility] [address] [id number] [place] [address]- 8541 Nov, [facility] [place] [facility] [address] [id number] [place] [address]- 8465 Nov, [facility] [place] [facility] [address] [id number] [place] [address]- 0598 Nov, [facility] [place] [facility] [address] [id number] [place] [address]- 9765 Nov, [facility] [place] [facility] [address] [id number] [place] [address]- 4050 Nov, [facility] [place] [facility] [address] [id number] [place] [address]- 2958 Nov, [facility] [place] [facility] [address] [id number] [place] [address]- 7188 Nov, [facility] [place] [facility] [address] [id number] [place] [address]- 3773 Nov, [facility] [place] [facility] [address] [id number] [address]- 9231 Nov, [facility] [place] [facility] [address] [id number] [place] [address]- 8636 Nov, [facility] [place] [facility] [address] [id number] [place] [address]- 9096 Nov, [facility] [place] [facility] [address] [id number] [address]- 4167 Nov, [facility] [place] [facility] [address] [id number] [place] [address]- 1144 Oct, [facility] [place] [facility] [address] [id number] [place] [address]- 3496 Oct, [facility] [place] [facility] [address] [id number] [place] [address]- 6232 Oct, [facility] [place] [facility] [address] [id number] [place] [address]- 2444 Oct, [facility] [place] [facility] [address] [id number] [place] [address]- 1761 Oct, [facility] [place] [facility] [address] [id number] [place] [address]- 4152 Oct, [facility] [place] [facility] [address] [id number] [place] [address]- 0784 Oct, [facility] [place] [facility] [address] [id number] [place] [address]- 1857 Oct, [facility] [place] [facility] [address] [id number] [place] [address]- 4107 Oct, [facility] [place] [facility] [address] [id number] [place] [address]- 2444 Sep, [facility] [place] [facility] [address] [id number] [place] [address]- 5354 Sep, [facility] [place] [facility] [address] [id number] [place] [address]- 9447 Sep, [facility] [place] [facility] [address] [id number] [place] [address]- 8589 Sep, [facility] [place] [facility] [address] [id number] [place] [address]- 8898 Sep, [facility] [place] [facility] [address] [id number] [place] [address]- 9066 Sep, [facility] [place] [facility] [address] [id number], [place] [address]- 7649 Sep, [facility] [place] [facility] [address] [id number] [place] [address]- 4452 Sep, [facility] [place] [facility] [address] [id number] [place] [address]- 3604 Sep, [facility] [place] [facility] [address] [id number] [place] [address]- 1678 Sep, [facility] [place] [facility] [address] [id number] [place] [address]- 9854 Sep, [facility] [place] [facility] [address] [id number] [place] [address]- 3963 Sep, [facility] [place] [facility] [address] [id number] [place] [address]- 5174 Aug, [facility] [place] [facility] [address] [id number] [place] [address]- 0529 Aug, [facility] [place] [facility] [address] [id number], [place] [address]- 6587 Aug, [facility] [place] [facility] [address] [id number] [place] [address]- 1250 Aug, [facility] [place] [facility] [address] [id number] [place] [address]- 8851 Aug, [facility] [place] [facility] [address] [id number], [place] [address]- 9074 Aug, [facility] [place] [facility] [address] [id number], [place] [address]- 3373 Aug, [facility] [place] [facility] [address] [id number] [place] [address]- 4853 Aug, [facility] [place] [facility] [address] [id number], [place] [address] 30 Jul, 2014 [facility] [place] [facility] [address] [id number] [place] [address] 30 Jul, 2014 [facility] [place] [facility] [address] [id number] [place] [address] 30 Jul, 2013 [facility] [place] [facility] [address] [id number] [place] [address] 30 Jul, 2013 [facility] [place] [facility] [address] [id number] [place] [address] 25 Jul, 2013 [facility] [place] [facility] [address] [id number] [place] [address] 25 Jul, 2013 [facility] [place] [facility] [address] [id number] [place] [address]46 15 Jul, 2013 [facility] [place] [facility] [address] [id number] [place] [address] 15 Jul, 2014 [facility] [place] [facility] [address] [id number] [place] [address] Jul, [facility] [place] [facility] [address] [id number] [place] [address] Jul, [facility] [place] [facility] [address] [id number] [place] [address] Jun, [facility] [place] [facility] [address] [id number] [place] [address] Jun, [facility] [place] [facility] [address] [id number] [place] [address] Jun, [facility] [place] [facility] [address] [id number] [place] [address] 254 Jun, [facility] [place] [facility] [address] [id number] [place] [address] Jun, [facility] [place] [facility] [address] [id number] [place] [address]- [address] Jun, [facility] [place] [facility] [address] [id number] [place] [address] Jun, [facility] [place] [facility] [address] [id number] [place] [address] Jun, [facility] [place] [facility] [address] [id number] [place] [address] Jun, [facility] [place] [facility] [address] [id number] [place] [address]- [address] Jun, [facility] [place] [facility] [address] [id number] [place] [address] Jun, [facility] [place] [facility] [address] [id number] [place] [address] Jun, [facility] [place] [facility] [address] [id number] [place] [address]- [address] Jun, [facility] [place] [facility] [address] [id number] [place] [address]- [address] Jun, [facility] [place] [facility] [address] [id number] [place] [address] Jun, [facility] [place] [facility] [address] [id number] [place] [address]- [address] Jun, [facility] [place] [facility] [address] [id number] [place] [address]- [address] Jun, [facility] [place] [facility] [address] [id number] [place] [address]- [address] Jun, [facility] [place] [facility] [address] [id number] [place] [address] Jun, [facility] [place] [facility] [address] [id number] [place] [address] Jun, [facility] [place] [facility] [address] [id number] [place] [address]- [address] Jun, [facility] [place] [facility] [address] [id number] [place] [address]- [address] Jun, [facility] [place] [facility] [address] [id number] [place] [address]- [address] May, [facility] [place] [facility] [address] [id number] [place] [address]- [address] May, [facility] [place] [facility] [address] [id number] [place] [address]- [address] May, [facility] [place] [facility] [address] [id number] [place] [address]- [address] May, [facility] [place] [facility] [address] [id number] [place] [address]- [address] May, [facility] [place] [facility] [address] [id number] [place] [address]- [address] May, [facility] [place] [facility] [address] [id number] [place] [address] May, [facility] [place] [facility] [address] [id number] [place] [address]- [address] May, [facility] [place] [facility] [address] [id number] [place] [address]- [address] May, [facility] [place] [facility] [address] [id number] [place] [address] May, [facility] [place] [facility] [address] [id number] [place] [address] May, [facility] [place] [facility] [address] [id number] [place] [address] 6[address] May, [facility] [place] [facility] [address] [id number] [place] [address]- 2466 May, [facility] [place] [facility] [address] [id number] [place] [address] 9497 Apr, [facility] [place] [facility] [address] [id number] [place] [address]- 4818 Apr, [facility] [place] [facility] [address] [id number] [place] [address]- 1357 Apr, [facility] [place] [facility] [address] [id number] [place] [address]- 0383 Apr, [facility] [place] [facility] [address] [id number] [place] [address]- 9[address] Apr, [facility] [place] [facility] [address] [id number] [place] [address] Apr, [facility] [place] [facility] [address] [id number] [place] [address] 3426 Apr, [facility] [place] [facility] [address] [id number] [place] [address] 1516 Apr, [facility] [place] [facility] [address] [id number] [place] [address]- 0741 Apr, [facility] [place] [facility] [address] [id number] [place] [address] 2198 March, [facility] [place] [facility] [address] [id number] [place] [address]- 7292 March, [facility] [place] [facility] [address] [id number] [place] [address]- 4429 March, [facility] [place] [facility] [address] [id number] [place] [address]- 0550 March, [facility] [place] [facility] [address] [id number] [place] [address]- 0318 March, [facility] [place] [facility] [address] [id number] [place] [address]- 4171 March, [facility] [place] [facility] [address] [id number] [place] [address]- 2977 March, [facility] [place] [facility] [address] [id number] [place] [address]- 9578 March, [facility] [place] [facility] [address] [id number] [place] [address] March, [facility] [place] [facility] [address] [id number] [place] [address] March, [facility] [place] [facility] [address] [id number] [place] [address]- 1271 March, [facility] [place] [facility] [address] [id number] [place] [address]- 8114 March, [facility] [place] [facility] [address] [id number] [place] [address]- 8582 March, [facility] [place] [facility] [address] [id number] [place] [address]- 6977 March, [facility] [place] [facility] [address] [id number] [place] [address]- 6926 March, [facility] [place] [facility] [address] [id number] [place] [address]- 5514 March, [facility] [place] [facility] [address] [id number] [place] [address]- 2686 March, [facility] [place] [facility] [address] [id number] [place] [address]- 1702 March, [facility] [place] [facility] [address] [id number] [place] [address]- 4199 March, [facility] [place] [facility] [address] [id number] [place] [address]- 4335 March, [facility] [place] [facility] [address] [id number] [place] [address]- 9342 Feb, [facility] [place] [facility] [address] [id number] [place] [address]- 8852 Feb, [facility] [place] [facility] [address] [id number] [place] [address]- 9727 Feb, [facility] [place] [facility] [address] [id number] [place] [address]- 0412 Feb, [facility] [place] [facility] [address] [id number] [place] [address]- 4753 Feb, [facility] [place] [facility] [address] [id number] [place] [address]- 3996 Feb, [facility] [place] [facility] [address] [id number] [place] [address]- 3886 11 Feb, 2014 [facility] [place] [facility] [address] [id number] [place] [address]- 4187 Feb, [facility] [place] [facility] [address] [id number] [place] [address]- 6851 Jan, [facility] [place] [facility] [address] [id number] [place] [address]- 1443 Jan, [facility] [place] [facility] [address] [id number] [place] [address]- 7397 Jan, [facility] [place] [facility] [address] [id number] [place] [address]- 0132 Jan, [facility] [place] [facility] [address] [id number] [place] [address]- 8182 Jan, [facility] [place] [facility] [address] [id number] [place] [address]- 6922 Jan, [facility] [place] [facility] [address] [id number] [place] [address]- 1543 Jan, [facility] [place] [facility] [address] [id number] [place] [address]- 1980 Jan, [facility] [place] [facility] [address] [id number] [place] [address]- 1587 Jan, [facility] [place] [facility] [address] [id number] [place] [address]- 8445 Jan, [facility] [place] [facility] [address] [id number] [place] [address]- 4274 Dec, [facility] [place] [facility] [address] [id number] [place] [address]- 3292 Dec, [facility] [place] [facility] [address] [id number] [place] [address]- 7939 Dec, [facility] [place] [facility] [address] [id number] [place] [address]- 8418 2013 [facility] [place] [facility] [address] [id number] [place] [address] 4447 2013 [facility] [place] [facility] [address] [id number] [place] [address]- 2473 13 Dec, 2013 [facility] [place] [facility] [address] [id number] [place] [address]- 3766 Dec, [facility] [place] [facility] [address] [id number] [place] [address]- 4521 Dec, [facility] [place] [facility] [address] [id number] [place] [address]- 1507 Nov, [facility] [place] [facility] [address] [id number] [place] [address]- 3021 Nov, [facility] [place] [facility] [address] [id number] [place] [address]- 5311 Nov, [facility] [place] [facility] [address] [id number] [place] [address]- 0006 Nov, [facility] [place] [facility] [address] [id number] [place] [address]- 8266 Nov, [facility] [place] [facility] [address] [id number] [place] [address]- 5901 Nov, [facility] [place] [facility] [address] [id number] [place] [address]- 3250 Nov, [facility] [place] [facility] [address] [id number] [place] [address] 1951 Nov, [facility] [place] [facility] [address] [id number] [place] [address]- 1986 Nov, [facility] [place] [facility] [address] [id number] [place] [address]- 1112 Nov, [facility] [place] [facility] [address] [id number] [place] [address]- 8967 Nov, [facility] [place] [facility] [address] [id number] [place] [address]- 4789 15 Nov, 2013 [facility] [address] [id number] [place] [address]- 9973 15 Nov, 2013 [facility] [place] [facility] [address] [id number] [place] [address]20 30 Oct, 2013 [facility] [address] [id number] [place] [address]- 9563 30 Oct, 2013 [facility] [place] [facility] [address] [id number] [place] [address]- 5111 Oct, [facility] [place] [facility] [address] [id number] [place] [address] Oct, [facility] [place] [facility] [address] [id number] [place] [address]- 7698 Oct, [facility] [address] [id number] [place] [address]- 9209 Oct, [facility] [place] [facility] [address] [id number] [place] [address]- 0195 18 Oct, 2013 [facility] [place] [facility] [address] [id number] [place] [address]- 6974 18 Oct, 2013 [facility] [place] [facility] [address] [id number] [place] [address]- 8546 Oct, [facility] [address] [id number] [place] [address]- 4206 17 Oct, 2013 [facility] [place] [facility] [address] [id number] [place] [address]- 7754 Oct, [facility] [place] [facility] [address] [id number] [place] [address]- 1086 Oct, [facility] [place] [facility] [address] [id number] [place] [address]- 7072 Oct, [facility] [address] [id number] [place] [address]- 0682 Oct, [facility] [place] [facility] [address] [id number] [place] [address]- 0747 Sep, [facility] [place] [facility] [address] [id number] [place] [address]- 6556 Sep, [facility] [place] [facility] [address] [id number] [place] [address]- 4650 Sep, [facility] [place] [facility] [address] [id number] [place] [address]- 5347 Sep, [facility] [place] [facility] [address] [id number] [place] [address]- 4538 Sep, [facility] [place] [facility] [address] [id number] [place] [address]- 6499 Sep, [facility] [place] [facility] [address] [id number] [place] [address]- 8176 Sep, [facility] [place] [facility] [address] [id number] [place] [address]- 1517 Sep, [facility] [place] [facility] [address] [id number] [place] [address]- 7325 Sep, [facility] [place] [facility] [address] [id number] [place] [address]- 7895 Sep, [facility] [place] [facility] [address] [id number] [place] [address]- 6646 Aug, [facility] [place] [facility] [address] [id number] [place] [address]- 0173 Aug, [facility] [place] [facility] [address] [id number] [place] [address]- 6401 Aug, [facility] [place] [facility] [address] [id number] [place] [address]- 9557 Aug, [facility] [place] [facility] [address] [id number] [place] [address]- 3050 Aug, [facility] [place] [facility] [address] [id number] [address]- 5700 23 Aug, 2013 [facility] [place] [facility] [address] [id number] [place] [address]- 2313 23 Aug, 2013 [facility] [place] [facility] [address] [id number] [place] [address]- 6946 23 Aug, 2013 [facility] [place] [facility] [address] [id number] [place] [address]- 3360 22 Aug, 2013 [facility] [place] [facility] [address] [id number], [place] [address]- 1472 22 Aug, 2012 [facility] [place] [facility] [address] [id number] [place] [address]- 2548 18 Aug, 2013 [facility] [place] [facility] [address] [id number], [place] [address]- 7678 18 Aug, 2013 [facility] [place] [facility] [address] [id number] [place] [address]- 3322 18 Aug, 2013 [facility] [place] [facility] [address] [id number], [place] [address]- 0140 18 Aug, 2013 [facility] [place] [facility] [address] [id number], [place] [address]- 4568 17 Aug, 2013 [facility] [place] [facility] [address] [id number], [place] [address]- 3530 14 Aug, 2013 [facility] [place] [facility] [address] [id number], [place] [address]- 7263 14 Aug, 2013 [facility] [place] [facility] [address] [id number], [place] [address]- 9314 Aug, [facility] [place] [facility] [address] [id number] [place] [address]- 1161 20 Jul, 2012 [facility] [place] [facility] [address] [id number], [place] [address]- 7771 19 Jul, 2012 [facility] [place] [facility] [address] [id number], [place] [address]- 0165 18 Jul, 2012 [facility] [place] [facility] [address] [id number] [place] [address]- 9960 Jul, [facility] [address] [id number] [place] [address]- 8599 Jul, [facility] [place] [facility] [address] [id number] [place] [address]- 9564 Jun, [facility] [address] [id number] [place] [address]- 1331 Jun, [facility] [place] [facility] [address] [id number] [place] [address]- 4025 Jun, [facility] [place] [facility] [address] [id number] [place] [address]- 0944 Jun, [facility] [address] [id number] [place] [address]- 6865 Jun, [facility] [address] [id number] [place] [address]- 5455 Jun, [facility] [address] [id number] [place] [address]- 9242 Jun, [facility] [address] [id number] [place] [address]- 0984 Jun, [facility] [address] [id number] [place] [address]- 2287 Jun, [facility] [place] [facility] [address] [id number] [place] [address]- 1378 Jun, [facility] [address] [id number] [place] [address]- 8384 May, [facility] [place] [facility] [address] [id number] [place] [address]- 8516 May, [facility] [place] [facility] [address] [id number] [place] [address]- 6922 May, [facility] [place] [facility] [address] [id number] [place] [address]- 1236 May, [facility] [place] [facility] [address] [id number] [place] [address]- 5056 May, [facility] [place] [facility] [address] [id number] [place] [address]- 4188 May, [facility] [place] [facility] [address] [id number] [place] [address]- 6985 May, [facility] [place] [facility] [address] [id number] [place] [address]- 5822 May, [facility] [place] [facility] [address] [id number] [place] [address]- 2501 May, [facility] [place] [facility] [address] [id number] [place] [address]- 9604 Apr, [facility] [place] [facility] [address] [id number] [place] [address]- 4655 Apr, [facility] [place] [facility] [address] [id number] [place] [address]- 5405 Apr, [facility] [place] [facility] [address] [id number] [place] [address]- 9861 Apr, [facility] [place] [facility] [address] [id number], [place] [address]- 4197 Apr, [facility] [place] [facility] [address] [id number], [place] [address]- 8974 Apr, [facility] [place] [facility] [address] [id number], [place] [address]- 1734 Apr, [facility] [place] [facility] [address] [id number] [place] [address]- 9598 March, [facility] [place] [facility] [address] [id number] [place] [address]- 5967 Feb, [facility] [place] [facility] [address] [id number], [place] [address]- 4899 Feb, [facility] [place] [facility] [address] [id number], [place] [address]- 8687 12 Feb, 2013 [facility] [place] [facility] [address] [id number] [place] [address]- 1209 28 Jan, 2013 [facility] [place] [facility] [address] [id number] [place] [address]- 3368 21 Jan, 2013 [facility] [place] [facility] [address] [id number] [place] [address]- 0453 19 Jan, 2013 [facility] [place] [facility] [address] [id number] [place] [address]- 5942 14 Jan, 2013 [facility] [place] [facility] [address] [id number] [place] [address]- 2579 12 Jan, 2013 [facility] [place] [facility] [address] [facility] [id number] [place] [address]- 6570 08 Jan, 2013 [facility] [place] [facility] [address] [facility] [id number] [place] [address]- 0184 07 Jan, 2013 [facility] [place] [facility] [address] [facility] [id number] [place] [address]- 5625 04 Jan, 2013 [facility] [place] [facility] [address] [place] [id number] [place] [address]- 0145 28 Dec, 2012 [facility] [place] [facility] [address] [facility] [id number] [place] [address]- 2442 25 Dec, 2012 [facility] [place] [facility] [address] [facility] [id number] [place] [address]- 8609 13 Dec, 2012 [facility] [place] [facility] [address] [facility] [id number] [place] [address]- 4805 11 Dec, 2012 [facility] [place] [facility] [address] [id number] [place] [address]- 5955 07 Dec, 2012 [facility] [place] [facility] [address] [id number] [place] [address]- 7486 06 Dec, 2012 [facility] [place] [facility] [address] [facility] [id number], [place] [address]- 7016 05 Dec, 2012 [facility] [place] [facility] [address] [id number] [place] [address]- 7203 Nov, [facility] [address] [id number] [place] [address]- 0885 24 Nov, 2012 [facility] [address] [id number] [place] [address]- 6426 Nov, [facility] [address] [id number] [place] [address]- 9559 Nov, [facility] [address] [id number] [place] [address]- 2725 Nov, [facility] [address] [id number] [place] [address]- 0676 Nov, [facility] [address] [id number] [place] [address]- 6577 Nov, [facility] [address] [id number] [place] [address]- 3889 Oct, [facility] [address] [id number] [place] [address]- 6276 Oct, [facility] [place] [address] [id number] [place] [address]- 7773 Oct, [facility] [place] [facility] [address] [id number] [place] [address]- 1854 Oct, [facility] [place] [facility] [address] [id number] [place] [address]- 3356 Oct, [facility] [place] [facility] [address] [id number] [place] [address]- 7637 Oct, [facility] [place] [facility] [address] [id number] [place] [address]- 8716 Oct, [facility] [place] [facility] [address] [id number] [place] [address]- 2546 Oct, [facility] [place] [facility] [address] [id number], [place] [address]- 1639 Oct, [facility] [place] [facility] [address] [id number] [place] [address]- 8233 Oct, [facility] [place] [facility] [address] [id number] 0704 Oct, [facility] [place] [facility] [address] [facility] [id number] [place] [address]- 0721 Oct, [facility] [place] [facility] [address] [id number], [place] [address]- 7325 Sep, [facility] [place] [facility] [address] [id number] [place] [address]- 9022 Sep, [facility] [place] [facility] [address] [id number] [place] [address]- 1436 Sep, [facility] [place] [facility] [address] [id number], [place] [address]- 6760 Sep, [facility] [place] [facility] [address] [id number], [place] [address] Sep, [facility] [place] [facility] [address] [id number][place] [address] Sep, [facility] [place] [facility] [address] [facility] [id number][place] [address] Sep, [facility] [place] [facility] [address] [id number], [place] [address] Sep, [facility] [place] [facility] [address] [id number], [place] [address] Sep, [facility] [place] [facility] [address] [id number], [place] [address] Sep, [facility] [place] [facility] [address] [id number], [place] [address] Sep, [facility] [place] [facility] [address] [id number] [place] [address] Aug, [facility] [place] [facility] [address] [id number] [place] [address] Aug, [facility] [place] [facility] [address] [id number] [place] [address] Aug, [facility] [place] [facility] [address] [id number] [place] [address] Aug, [facility] [place] [facility] [address] [id number] [place] [address]- [address] Aug, [facility] [place] [facility] [address] [id number] [place] [address]- [address] Aug, [facility] [place] [facility] [address] [id number] [place] [address]- [address] Aug, [facility] [place] [facility] [address] [id number] [place] [address] Aug, [facility] [place] [facility] [address] [id number] [place] [address]- [address] Aug, [facility] [place] [facility] [address] [id number] [place] [address]- [address] Aug, [facility] [place] [facility] [address] [id number] [place] [address]- [address] 22 Jul, 2012 [facility] [place] [facility] [address] [id number] [place] [address]- [address] 20 Jul, 2012 [facility] [place] [facility] [address] [id number] [place] [address]- [address] 10 Jul, 2012 [facility] [place] [facility] [address] [id number] [place] [address]- [address] 06 Jul, 2012 [facility] [place] [facility] [address] [id number] [place] [address]- [address] 30 Jun, 2012 [facility] [place] [facility] [address] [id number] [place] [address]- [address] Jun, [facility] [place] [facility] [address] [id number] [place] [address]- [address] Jun, [facility] [place] [facility] [address] [id number] [place] [address]- [address] Jun, [facility] [place] [facility] [address] [id number] [place] [address] Jun, [facility] [place] [facility] [address] [id number] [place] [address]- 84[address] Jun, [facility] [place] [facility] [address] [id number] [place] [address] Jun, [facility] [place] [facility] [address] [id number] [place] [address]- [address] May, [facility] [place] [facility] [address] [id number] [place] [address]207 May, [facility] [place] [facility] [address] [id number] [place] [address] May, [facility] [place] [facility] [address] [id number] [place] [address]- [address]755 May, [facility] [place] [facility] [address] [id number] [place] [address]- 0678 May, [facility] [place] [facility] [address] [id number] [place] [address]- [address] Apr, [facility] [place] [facility] [address] [id number] [place] [address]- [address] Apr, [facility] [place] [facility] [address] [id number] [place] [address]- 96[address] Apr, [facility] [place] [facility] [address] [id number] [place] [address]- [address] Apr, [facility] [place] [facility] [address] [id number] [place] [address] Apr, [facility] [place] [facility] [address] [id number] [place] [address]- [address] March, [facility] [place] [facility] [address] [id number] [place] [address]- [address] March, [facility] [address] [id number] [place] [address]- [address] March, [facility] [place] [facility] [address] [id number] [place] [address]- 81[address] March, [facility] [address] [id number] [place] [address]- [address] March, [facility] [place] [facility] [address] [id number] [place] [address]- [address] March, [facility] [address] [id number] [place] [address]- [address] March, [facility] [address] [id number] [place] [address]- [address] March, [facility] [address] [id number] [place] [address]- [address] March, [facility] [address] [id number] [place] [address]- [address] March, [facility] [address] [id number] [place] [address]- [address] 30 Feb, 2012 [facility] [place] [facility] [address] [id number] [place] [address]- [address] Feb, [facility] [place] [facility] [address] [id number] [place] [address]- [address]13 26 Feb, 2012 [facility] [place] [facility] [address] [id number] [place] [address]- [address] 19 Feb, 2012 [facility] [place] [facility] [address] [id number] [place] [address]- [address] 17 Feb, 2012 [facility] [place] [facility] [address] [id number] [place] [address]- [address] Feb, [facility] [place] [facility] [address] [id number] [place] [address]- [address] 12 Feb, 2012 [facility] [place] [facility] [address] [id number] [place] [address]- 7627 Feb, [facility] [address] [id number] [place] [address] Feb, [facility] [place] [facility] [address] [id number] [place] [address]- [address]60 Jan, [facility] [place] [facility] [address] [id number] [place] [address]- 48[address] Jan, [facility] [place] [facility] [address] [id number] [place] [address]- 8[address] Jan, [facility] [place] [facility] [address] [id number] [place] [address]- [address]358 Jan, [facility] [address] [id number] [place] [address]- 69[address] Dec, [facility] [place] [facility] [address] [id number] [place] [address]- [address] Dec, [facility] [place] [facility] [address] [id number] [place] [address]- [address]047 Nov, [facility] [address] [id number] [place] [address]- [address] Nov, [facility] [place] [facility] [address] [id number] [place] [address]- [address] Nov, [facility] [place] [facility] [address] [id number] [place] [address] Nov, [facility] [place] [facility] [address] [id number] [place] [address] Nov, [facility] [place] [facility] [address] [id number] [place] [address] Oct, [facility] [place] [facility] [address] [id number] [place] [address] Oct, [facility] [place] [facility] [address] [id number] [address] Oct, [facility] [address] [facility] [id number] [address] Oct, [facility] [address] [id number] [id number] Oct, [facility] [address] [id number] [address] Oct, [facility] [address] [id number], [place] [address] Oct, [facility] [address] [facility] [id number], [place] [address] Oct, [facility] [address] [id number], [place] [address] Sep, IMMUNIZATIONS No Known Immunizations SOCIAL HISTORY Never Assessed REASON FOR VISIT Change Proair to [facility] PLAN OF CARE VITAL SIGNS MEDICATIONS Medication Instructions Dosage Frequency Start Date End Date Duration Status Albuterol Sulfate HFA 108 (90 Base) MCG/ACT Inhalation every 6 hrs 2 puffs as needed Nov, Active RESULTS No Results PROCEDURES No Known procedures INSTRUCTIONS MEDICATIONS ADMINISTERED No Known Medications MEDICAL (GENERAL) HISTORY Type Description Date 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
--- OUTSIDE RECORDS SUMMARY | 2018-09-04 12:03 | XMS REPORT ---
Author Author SHAHNAZ MARQUEZ Organization [facility] Address [address] [place] [address] Care Team Providers Care Make Up Operator Name Role Phone SHAHNAZ MARQUEZ Unavailable PROBLEMS Type Condition ICD9-CM Code GRR62-TJ Code Onset Dates Condition Status SNOMED Code Problem Other chronic pain G89.29 Active 11810996 Problem Type 2 diabetes mellitus without complication, without long-term current use of insulin E11.9 Active 979538234 Problem Low back pain M54.5 Active 489888429 Problem Hypertension I10 Active 58651815 Problem Coronary artery disease I25.10 Active 79537588 Problem Hyperlipidemia E78.5 Active 08405069 Problem Peripheral vascular disease I73.9 Active 091582338 Problem Insomnia G47.00 Active 286502871 Problem Reactive depression F32.9 Active 13262029 Problem Ventral hernia without obstruction or gangrene K43.9 Active 922482830 Problem Anxiety F41.9 Active 99287261 Problem Pharyngeal dysphagia R13.13 Active [id number] ALLERGIES No Information ENCOUNTERS Encounter Location Date Diagnosis [place] [id number] [place] [address] 49461- 5484 Apr, [facility] [id number] [place] [address] 82051- 7519 Apr, [facility] [address] [facility] [place] [id number] 19 Apr, 2018 Closed compression fracture of L3 lumbar vertebra with routine healing, subsequent encounter S32.030D [facility] [address] [place] [id number] 14 Apr, 2018 Low back pain M54.5 [facility] [employer] [address] [address] [place] [id number] 12 Apr, 2018 Coccydynia M53.3 [place] [address] [place] [id number] [place] [address] 84517- 0479 March, [facility] [address] [address] March, Other chronic pain G89.29 [facility] [address] [address] 8636 March, [facility] [address] 3869 March, [facility] [address], [place] [address]- 6353 Feb, [facility] [address] [place] [address] 221011- 4569 Feb, Other chronic pain G89.29 [facility] [employer] [address] [place] [id number] Feb, Other chronic pain G89.29 and Anxiety F41.9 [facility] [address], [place] [address] 09[address] Feb, [facility] [address], [place] [address]- 1449 Jan, [facility] [address], [place] [address]- 0230 Jan, [facility] [address] [id number] [address]- 8883 Jan, [facility] [address] [id number], [place] [address]- 5258 Jan, [facility] [address] [id number], [place] [address] 8221 Dec, [facility] [employer] [address] [place] [id number] Dec, Peripheral vascular disease I73.9 ; 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 ; Other chronic pain G89.29 ; Anxiety F41.9 ; Reactive depression F32.9 ; Insomnia G47.00 and Type 2 diabetes mellitus without complication, without long-term current use of insulin E11.9 [facility] [address] [id number] [place] [address] Nov [facility] [id number] [address] Nov, Anxiety F41.9 [facility] [address] [id number] [address] 5110 Nov, [facility] [id number] [address] Nov, Anxiety F41.9 [facility] [employer] [address] [place] [id number] Nov, Status post surgery Z98.890 ; Confused R41.0 ; Anxiety F41.9 and Other chronic pain G89.29 [facility] [address] [id number][place] [address] Nov, Other chronic pain G89.29 [facility] [address] [address] 3129 Oct, [facility] [id number] [place] [address] [id number] Oct, Other chronic pain G89.29 [facility] [address] [id number] 1986 Oct, Anxiety F41.9 [facility] [id number][place] [address] Sep, Other chronic pain G89.29 [facility] [address] [id number][place] [address] Sep, [facility] [employer] [address] [place] [id number] Aug, Dysuria R30.0 and Anxiety F41.9 [facility] [address] [facility] [id number], [place] [address] 6946 Aug, [facility] [address] [id number][place] [address] Aug, Other chronic pain G89.29 [facility] [address] [id number] [address] 1030 Jul, Other chronic pain G89.29 [facility] [address] [id number] [address] Jun, [facility] [address] [id number] [address] Jun, Other chronic pain G89.29 [facility] [address]005[address]100[place], [place] [address]- 5271 Jun, [facility] [address] [place] [address] 12400- 7187 May, Other chronic pain G89.29 [facility] [address]005[address]100[place], [place] [address]- 8352 Apr, Other chronic pain G89.[address] [facility] [address] [place] [id number] Apr, Reactive depression F32.9 and Pharyngeal dysphagia R13.13 [facility] [address]005[address], [place] [address]- 6756 Apr, Urinary tract infection without hematuria, site unspecified N39.0 [facility] [address]005[address], [place] [address]- 8343 March, Other chronic pain G89.29 [facility] [address]00565100[place], [place] [address]- 4514 Feb, Other chronic pain G89.29 [facility] [address] [id number], [place] [address]- 7686 Feb, [facility] [id number] [place] [address] [id number] Feb, [facility] [employer] [address] [place] [id number] Feb, Dysuria R30.0 and Ventral hernia without obstruction or gangrene K43.9 [facility] [address]005[address], [place] [address]- 9651 Jan, Other chronic pain G89.29 [facility] [id number] [place] [address] [id number] Dec, Other chronic pain G89.29 [facility] [address], [place] [address]- 6839 Nov, Other chronic pain G89.29 [facility] [address] [facility] [place] [id number] Nov, Lymphadenitis I88.9 [facility] [id number] [place] [address] 36807- 9400 Nov, Other chronic pain G89.29 [facility] [id number] [place] [address] 71029- 6772 Nov, [facility] [id number] [place] [address] [id number] Nov, Other chronic pain G89.29 [facility] [employer] [address] [place] [id number] Oct, Low back pain M54.5 ; Hypertension I10 and Type 2 diabetes mellitus without complication, without long-term current use of insulin E11.9 [facility] [address], [place] [address]- 2438 Oct, [facility] [address] [place] [address] 25374- 5808 Oct, [facility] [address] [place] [address] 88562- 5255 Oct, [facility] [id number] [place] [address] 66380- 0730 Oct, [facility] [address] [place] [address] 84323- 7462 Sep, [facility] [address] [place] [address] 50662- 9387 Sep, [facility] [address] [facility] [id number], [place] [address]- 9564 Aug, Other chronic pain G89.29 [facility] [address] [facility] [id number], [place] [address]- 8508 Jul, [facility] [address] [facility] [id number], [place] [address]- 6227 Jul, [facility] [address] [facility] [id number], [place] [address]- 0424 Jul, [facility] [address] [facility] [id number], [place] [address]- 0591 Jun, [facility] [address] [facility] [id number] [address]- 4936 Jun, [facility] [address] [facility] [place] [id number] Jun, Low back pain M54.5 ; Other chronic pain G89.29 and Coronary artery disease I25.10 [facility] [address] [facility] [id number], [place] [address]- 7003 Jun, [facility] [address] [facility] [id number] [address]- 4469 May, [facility] [address] [id number], [place] [address]- 5011 May, [facility] [address] [facility] [id number] [address]- 3217 May, Other chronic pain G89.29 [facility] [address] [facility] [id number], [place] [address]- 7472 May, [facility] [address] [facility] [id number], [place] [address]- 5010 Apr, [facility] [address] [facility] [id number][place] [address]- 4519 17 Apr, 2016 Acute cystitis without hematuria N30.00 [facility] [address] [facility] [id number] [place] [address] 02193- 7555 16 Apr, 2016 Acute cystitis without hematuria N30.00 ; Coronary artery disease I25.10 ; Low back pain M54.5 and Other chronic pain G89.29 [facility] [id number] [place] [address] 47641- 6859 13 Apr, 2016 Other chronic pain G89.29 [facility] [id number] [place] [address] 85841- 9226 March, Other chronic pain G89.29 [facility] [id number] [place] [address] 20732- 7895 Feb, [facility] [id number] [place] [address] 48807- 2491 Feb, Arthritis M19.90 [facility] [id number] [place] [address] 58571- 7075 Feb, [facility] [id number] [place] [address] 72794- 5387 Jan, [facility] [id number] [place] [address] 26933- 3301 Jan, [facility] [id number] [place] [address] 26190- 8043 Jan, Other chronic pain G89.29 [facility] [id number] [place] [address] 21201- 0845 Jan, Hypertension I10 ; Coronary artery disease I25.10 and Insomnia G47.00 [facility] [id number] [place] [address] 43812- 3323 Jan, [facility] [id number] [place] [address] 05146- 3265 Dec, Right hip pain M25.551 [facility] [id number] [place] [address] 98655- 7518 Dec, [facility] [id number] [place] [address] [place] [address]- 9493 Dec, [facility] [address], [place] [address]- 6126 Dec, [facility] [address], [place] [address]- 2006 Dec, Other chronic pain G89.29 [facility] [address] [place] [address] 78848- 2846 Dec, [facility] [address], [place] [address]- 1824 Nov, [facility] [address] [place] [address] 19391- 0448 Nov, Other chronic pain G89.29 [facility] [address] [place] [address] 95276- 9636 Nov, Right hip pain M25.551 and Coronary artery disease I25.10 [facility] [address], [place] [address]- 5739 Nov, Other chronic pain G89.29 [facility] [address], [place] [address]- 3157 Oct, [facility] [address], [place] [address]- 3158 Oct, [facility] [address], [place] [address]- 4099 Sep, [facility] [address], [place] [address] 2541 Sep, [facility] [address], [place] [address]- 9826 Aug, [facility] [address], [place] [address]- 3271 Aug, Hypertension I10 ; Coronary artery disease I25.10 and Arthritis M19.90 [facility] [address] [place] [address]- 4351 Jun, [facility] [address] [facility] [id number] [place] [address]- 7716 Jun, Essential hypertension, benign 401.1 ; Other chronic pain 338.29 and Chronic airway obstruction, not elsewhere classified 496 [facility] [address] [facility] [id number] [place] [address]- 5276 Jun, [facility] [address] [facility] [id number] [place] [address]- 8984 Jun, [facility] [address] [facility] [id number] [place] [address]- 7820 Jun, [facility] [address] [facility] [id number] [place] [address]- 2780 May, [facility] [address] [place] [address]- 6478 May, [facility] [address] [place] [address]- 4875 Apr, [facility] [address] [place] [place] [address]- 5750 Apr, [facility] [address] [place] [address]- 1133 Apr, [facility] [address], [place] [address]- 2046 March, [facility] [address] [id number] [address]- 1240 March, [facility] [address] [id number] [place] [address]- 8923 March, [facility] [address] [place] [address]- 4605 March, [facility] [address] [id number] [place] [address]- 1369 March, Sialadenitis 527.2 [facility] [place] [facility] [address] [id number] [place] [address]- 6804 Feb, [facility] [place] [facility] [address] [id number] [place] [address]- 7748 Feb, [facility] [place] [facility] [address] [id number] [place] [address]- 4673 Feb, [facility] [place] [facility] [address] [id number] [place] [address]- 9952 Feb, [facility] [place] [facility] [address] [id number] [place] [address]- 5352 Feb, [facility] [place] [facility] [address] [id number] [place] [address]- 1706 Jan, [facility] [place] [facility] [address] [facility] [id number] [place] [address]- 3592 Jan, [facility] [place] [facility] [address] [facility] [id number] [place] [address]- 8670 Jan, [facility] [place] [facility] [address] [id number] [place] [address]- 2344 Jan, [facility] [place] [facility] [address] [facility] [id number] [place] [address]- 5667 Jan, [facility] [place] [facility] [address] [facility] [id number] [place] [address]- 1547 Jan, [facility] [place] [facility] [address] [id number], [place] [address]- 8921 Dec, [facility] [place] [facility] [address] [id number] [place] [address]- 4550 Dec, [facility] [place] [facility] [address] [id number] [place] [address]- 3602 Dec, [facility] [place] [facility] [address] [facility] [id number] [place] [address]- 0075 Dec, [facility] [place] [facility] [address] [facility] [id number] [place] [address]- 3658 Dec, [facility] [place] [facility] [address] [id number] [place] [address]- 6783 Dec, [facility] [place] [facility] [address] [id number] [place] [address]- 0837 Nov, [facility] [place] [facility] [address] [id number] [place] [address]- 5157 Nov, [facility] [place] [facility] [address] [id number] [place] [address]- 7183 Nov, [facility] [place] [facility] [address] [id number] [place] [address]- 7047 Nov, [facility] [place] [facility] [address] [id number] [place] [address]- 4615 Nov, [facility] [place] [facility] [address] [id number] [place] [address]- 5015 Nov, [facility] [place] [facility] [address] [id number] [place] [address]- 9463 Nov, [facility] [place] [facility] [address] [id number] [place] [address]- 6825 Nov, [facility] [place] [facility] [address] [id number] [place] [address]- 1286 Nov, [facility] [place] [facility] [address] [id number] [place] [address]- 0559 Nov, [facility] [place] [facility] [address] [id number], [place] [address]- 6813 Nov, [facility] [place] [facility] [address] [id number] [place] [address]- 6606 Nov, [facility] [place] [facility] [address] [id number] [place] [address]- 4716 Nov, [facility] [place] [facility] [address] [id number], [place] [address]- 9085 Nov, [facility] [place] [facility] [address] [id number] [place] [address]- 6199 Oct, [facility] [place] [facility] [address] [id number] [place] [address]- 7387 Oct, [facility] [place] [facility] [address] [id number] [place] [address]- 0004 Oct, [facility] [place] [facility] [address] [id number] [place] [address]- 3919 Oct, [facility] [place] [facility] [address] [id number] [place] [address]- 1972 Oct, [facility] [place] [facility] [address] [id number] [place] [address]- 0490 Oct, [facility] [place] [facility] [address] [id number] [place] [address]- 8385 Oct, [facility] [place] [facility] [address] [id number] [place] [address]- 0883 Oct, [facility] [place] [facility] [address] [id number] [place] [address]- 0688 Oct, [facility] [place] [facility] [address] [id number] [place] [address]- 4450 Sep, [facility] [place] [facility] [address] [id number] [place] [address]- 6963 Sep, [facility] [place] [facility] [address] [id number] [place] [address]- 1421 Sep, [facility] [place] [facility] [address] [id number] [place] [address]- 6261 Sep, [facility] [place] [facility] [address] [id number] [place] [address]- 0284 Sep, [facility] [place] [facility] [address] [id number] [place] [address]- 2360 Sep, [facility] [place] [facility] [address] [id number], [place] [address]- 8127 Sep, [facility] [place] [facility] [address] [id number] [place] [address]- 5964 Sep, [facility] [place] [facility] [address] [id number] [place] [address]- 5859 Sep, [facility] [place] [facility] [address] [id number] [place] [address]- 4471 Sep, [facility] [place] [facility] [address] [id number] [place] [address]- 7653 Sep, [facility] [place] [facility] [address] [id number] [place] [address]- 5702 Sep, [facility] [place] [facility] [address] [id number] [place] [address]- 0858 Aug, [facility] [place] [facility] [address] [id number] [place] [address]- 1093 Aug, [facility] [place] [facility] [address] [id number] [address]- 1953 Aug, [facility] [place] [facility] [address] [id number] [place] [address]- 8636 Aug, [facility] [place] [facility] [address] [id number] [place] [address]- 4795 Aug, [facility] [place] [facility] [address] [id number], [place] [address]- 8657 Aug, [facility] [place] [facility] [address] [id number], [place] [address]- 6266 Aug, [facility] [place] [facility] [address] [id number] [place] [address]- 0740 Aug, [facility] [place] [facility] [address] [id number], [place] [address] 30 Jul, 2014 [facility] [place] [facility] [address] [id number] [place] [address] 30 Jul, 2014 [facility] [place] [facility] [address] [id number] [place] [address] 30 Jul, 2013 [facility] [place] [facility] [address] [id number] [place] [address] 30 Jul, 2013 [facility] [place] [facility] [address] [id number] [place] [address] 25 Jul, 2013 [facility] [place] [facility] [address] [id number] [place] [address] 25 Jul, 2013 [facility] [place] [facility] [address] [id number] [place] [address] 15 Jul, 2013 [facility] [place] [facility] [address] [id number] [place] [address] 15 Jul, 2014 [facility] [place] [facility] [address] [id number] [place] [address] Jul, [facility] [place] [facility] [address] [id number] [place] [address] Jul, [facility] [place] [facility] [address] [id number] [place] [address] Jun, [facility] [place] [facility] [address] [id number] [place] [address] Jun, [facility] [place] [facility] [address] [id number] [place] [address] Jun, [facility] [place] [facility] [address] [id number] [place] [address]44 Jun, [facility] [place] [facility] [address] [id number] [place] [address]- [address] Jun, [facility] [place] [facility] [address] [id number] [place] [address] Jun, [facility] [place] [facility] [address] [id number] [place] [address]- [address] Jun, [facility] [place] [facility] [address] [id number] [place] [address]- [address] Jun, [facility] [place] [facility] [address] [id number] [place] [address]- [address] Jun, [facility] [place] [facility] [address] [id number] [place] [address]- [address] Jun, [facility] [place] [facility] [address] [id number] [place] [address] Jun, [facility] [place] [facility] [address] [id number] [place] [address] Jun, [facility] [place] [facility] [address] [id number] [place] [address] Jun, [facility] [place] [facility] [address] [id number] [place] [address] Jun, [facility] [place] [facility] [address] [id number] [place] [address]- [address] Jun, [facility] [place] [facility] [address] [id number] [place] [address] Jun, [facility] [place] [facility] [address] [id number] [place] [address] Jun, [facility] [place] [facility] [address] [id number] [place] [address] Jun, [facility] [place] [facility] [address] [id number] [place] [address] Jun, [facility] [place] [facility] [address] [id number] [place] [address]- [address] Jun, [facility] [place] [facility] [address] [id number] [place] [address]- [address] Jun, [facility] [place] [facility] [address] [id number] [place] [address] Jun, [facility] [place] [facility] [address] [id number] [place] [address] May, [facility] [place] [facility] [address] [id number] [place] [address] May, [facility] [place] [facility] [address] [id number] [place] [address]- [address] May, [facility] [place] [facility] [address] [id number] [place] [address] May, [facility] [place] [facility] [address] [id number] [place] [address] 2838 May, [facility] [place] [facility] [address] [id number] [place] [address] 3158 May, [facility] [place] [facility] [address] [id number] [place] [address] 5012 May, [facility] [place] [facility] [address] [id number] [place] [address] 8214 May, [facility] [place] [facility] [address] [id number] [place] [address] 1968 May, [facility] [place] [facility] [address] [id number] [place] [address]- 6379 May, [facility] [place] [facility] [address] [id number] [place] [address]- 2590 May, [facility] [place] [facility] [address] [id number] [place] [address]- 5476 May, [facility] [place] [facility] [address] [id number] [place] [address]- 7947 May, [facility] [place] [facility] [address] [id number] [place] [address]- 2211 Apr, [facility] [place] [facility] [address] [id number] [place] [address]- 5887 Apr, [facility] [place] [facility] [address] [id number] [place] [address]- 0205 Apr, [facility] [place] [facility] [address] [id number] [place] [address]- 2208 Apr, [facility] [place] [facility] [address] [id number] [place] [address]- 8603 Apr, [facility] [place] [facility] [address] [id number] [place] [address] Apr, [facility] [place] [facility] [address] [id number] [place] [address]- 2636 Apr, [facility] [place] [facility] [address] [id number] [place] [address]- 8739 Apr, [facility] [place] [facility] [address] [id number] [place] [address]- 2966 Apr, [facility] [place] [facility] [address] [id number] [place] [address]- 5276 March, [facility] [place] [facility] [address] [id number] [place] [address]- 7381 March, [facility] [place] [facility] [address] [id number] [place] [address]- 9803 March, [facility] [place] [facility] [address] [id number] [place] [address]- 2095 March, [facility] [place] [facility] [address] [id number] [place] [address]- 7147 March, [facility] [place] [facility] [address] [id number] [place] [address]- 8868 March, [facility] [place] [facility] [address] [id number] [place] [address]- 0255 March, [facility] [place] [facility] [address] [id number] [place] [address]- 0473 March, [facility] [place] [facility] [address] [id number] [place] [address] March, [facility] [place] [facility] [address] [id number] [place] [address] March, [facility] [place] [facility] [address] [id number] [place] [address]- 9318 March, [facility] [place] [facility] [address] [id number] [place] [address]- 8404 March, [facility] [place] [facility] [address] [id number] [place] [address]- 0389 March, [facility] [place] [facility] [address] [id number] [place] [address]- 7158 March, [facility] [place] [facility] [address] [id number] [place] [address]- 1518 March, [facility] [place] [facility] [address] [id number] [place] [address]- 8477 March, [facility] [place] [facility] [address] [id number] [place] [address]- 9852 March, [facility] [place] [facility] [address] [id number] [place] [address]- 4267 March, [facility] [place] [facility] [address] [id number] [place] [address]- 2160 March, [facility] [place] [facility] [address] [id number] [place] [address]- 1531 March, [facility] [place] [facility] [address] [id number] [place] [address]- 7995 Feb, [facility] [place] [facility] [address] [id number] [place] [address]- 0410 Feb, [facility] [place] [facility] [address] [id number] [place] [address]- 2203 Feb, [facility] [place] [facility] [address] [id number] [place] [address]- 5531 Feb, [facility] [place] [facility] [address] [id number] [place] [address]- 1741 Feb, [facility] [place] [facility] [address] [id number] [place] [address]- 2502 Feb, [facility] [place] [facility] [address] [id number] [place] [address]- 9787 11 Feb, 2014 [facility] [place] [facility] [address] [id number] [place] [address]- 4679 Feb, [facility] [place] [facility] [address] [id number] [place] [address]- 5382 Jan, [facility] [place] [facility] [address] [id number] [place] [address]- 2291 Jan, [facility] [place] [facility] [address] [id number] [place] [address]- 6410 Jan, [facility] [place] [facility] [address] [id number] [place] [address]- 1502 Jan, [facility] [place] [facility] [address] [id number] [place] [address]- 7076 Jan, [facility] [place] [facility] [address] [id number] [place] [address]- 6535 Jan, [facility] [place] [facility] [address] [id number] [place] [address]- 4270 Jan, [facility] [place] [facility] [address] [id number] [place] [address]- 3045 Jan, [facility] [place] [facility] [address] [id number] [place] [address]- 3480 Jan, [facility] [place] [facility] [address] [id number] [place] [address]- 0739 Jan, [facility] [place] [facility] [address] [id number] [place] [address]- 4398 Dec, [facility] [place] [facility] [address] [id number] [place] [address]- 1428 Dec, [facility] [place] [facility] [address] [id number] [place] [address]- 2918 Dec, [facility] [place] [facility] [address] [id number] [place] [address]- 3011 2013 [facility] [place] [facility] [address] [id number] [place] [address]- 4653 2013 [facility] [place] [facility] [address] [id number] [place] [address]- 4692 13 Dec, 2013 [facility] [place] [facility] [address] [id number] [place] [address]- 5220 Dec, [facility] [place] [facility] [address] [id number] [place] [address]- 8750 Dec, [facility] [place] [facility] [address] [id number] [place] [address]- 2171 Nov, [facility] [place] [facility] [address] [id number] [place] [address]- 3721 Nov, [facility] [place] [facility] [address] [id number] [place] [address]- 1606 Nov, [facility] [place] [facility] [address] [id number] [place] [address]- 5194 Nov, [facility] [place] [facility] [address] [id number] [place] [address]- 4897 Nov, [facility] [place] [facility] [address] [id number] [place] [address]- 2470 Nov, [facility] [place] [facility] [address] [id number] [place] [address]- 2115 Nov, [facility] [place] [facility] [address] [id number] [place] [address]- 0337 Nov, [facility] [place] [facility] [address] [id number] [place] [address]- 7211 Nov, [facility] [place] [facility] [address] [id number] [place] [address]- 9023 Nov, [facility] [place] [facility] [address] [id number] [place] [address]- 4599 Nov, [facility] [place] [facility] [address] [id number] [place] [address]- 5018 15 Nov, 2013 [facility] [address] [id number] [place] [address]- 9508 15 Nov, 2013 [facility] [place] [facility] [address] [id number] [place] [address] 30 Oct, 2013 [facility] [address] [id number] [place] [address]- 5674 30 Oct, 2013 [facility] [place] [facility] [address] [id number] [place] [address]- 6533 Oct, [facility] [place] [facility] [address] [id number] [place] [address] Oct, [facility] [place] [facility] [address] [id number] [place] [address]- 8312 Oct, [facility] [address] [id number] [place] [address]- 7504 Oct, [facility] [place] [facility] [address] [id number] [place] [address]- 2998 18 Oct, 2013 [facility] [place] [facility] [address] [id number] [place] [address]- 5567 18 Oct, 2013 [facility] [place] [facility] [address] [id number] [place] [address]- 7905 Oct, [facility] [address] [id number] [place] [address]- 5279 17 Oct, 2013 [facility] [place] [facility] [address] [id number] [place] [address]- 3070 Oct, [facility] [place] [facility] [address] [id number] [place] [address]- 9689 Oct, [facility] [place] [facility] [address] [id number] [place] [address]- 1024 Oct, [facility] [address] [id number] [place] [address]- 1344 Oct, [facility] [place] [facility] [address] [id number] [place] [address]- 2347 Sep, [facility] [place] [facility] [address] [id number] [place] [address]- 6932 Sep, [facility] [place] [facility] [address] [id number] [place] [address]- 2474 Sep, [facility] [place] [facility] [address] [id number] [place] [address]- 4017 Sep, [facility] [place] [facility] [address] [id number] [place] [address]- 7580 Sep, [facility] [place] [facility] [address] [id number] [place] [address]- 6888 Sep, [facility] [place] [facility] [address] [id number] [place] [address]- 2254 Sep, [facility] [place] [facility] [address] [id number] [place] [address]- 3559 Sep, [facility] [place] [facility] [address] [id number] [place] [address]- 8902 Sep, [facility] [place] [facility] [address] [id number] [place] [address]- 0060 Sep, [facility] [place] [facility] [address] [id number] [place] [address]- 4531 Aug, [facility] [place] [facility] [address] [id number] [place] [address]- 5043 Aug, [facility] [place] [facility] [address] [id number] [place] [address]- 4230 Aug, [facility] [place] [facility] [address] [id number] [place] [address]- 5074 Aug, [facility] [place] [facility] [address] [id number] [place] [address]- 8465 Aug, [facility] [place] [facility] [address] [id number] [address]- 5639 23 Aug, 2013 [facility] [place] [facility] [address] [id number] [place] [address]- 1127 23 Aug, 2013 [facility] [place] [facility] [address] [id number] [place] [address]- 8503 23 Aug, 2013 [facility] [place] [facility] [address] [id number] [place] [address]- 3585 22 Aug, 2013 [facility] [place] [facility] [address] [id number], [place] [address]- 4852 22 Aug, 2012 [facility] [place] [facility] [address] [id number] [place] [address]- 7022 18 Aug, 2013 [facility] [place] [facility] [address] [id number], [place] [address]- 4975 18 Aug, 2013 [facility] [place] [facility] [address] [id number] [place] [address]- 3179 18 Aug, 2013 [facility] [place] [facility] [address] [id number], [place] [address]- 3211 18 Aug, 2013 [facility] [place] [facility] [address] [id number], [place] [address]- 3967 17 Aug, 2013 [facility] [place] [facility] [address] [id number], [place] [address]- 3031 14 Aug, 2013 [facility] [place] [facility] [address] [id number], [place] [address]- 7461 14 Aug, 2013 [facility] [place] [facility] [address] [id number], [place] [address]- 6511 Aug, [facility] [place] [facility] [address] [id number] [place] [address]- 3745 20 Jul, 2012 [facility] [place] [facility] [address] [id number], [place] [address]- 8734 19 Jul, 2012 [facility] [place] [facility] [address] [id number], [place] [address]- 9637 18 Jul, 2012 [facility] [place] [facility] [address] [id number] [place] [address]- 1363 Jul, [facility] [address] [id number] [place] [address]- 3570 Jul, [facility] [place] [facility] [address] [id number] [place] [address]- 4629 Jun, [facility] [address] [id number] [place] [address]- 7510 Jun, [facility] [place] [facility] [address] [id number] [place] [address]- 3323 Jun, [facility] [place] [facility] [address] [id number] [place] [address]- 6726 Jun, [facility] [address] [id number] [place] [address]- 0912 Jun, [facility] [address] [id number] [place] [address]- 2061 Jun, [facility] [address] [id number] [place] [address]- 4713 Jun, [facility] [address] [id number] [place] [address]- 1013 Jun, [facility] [address] [id number] [place] [address]- 4163 Jun, [facility] [place] [facility] [address] [id number] [place] [address]- 5855 Jun, [facility] [address] [id number] [place] [address]- 9335 May, [facility] [place] [facility] [address] [id number] [place] [address]- 7982 May, [facility] [place] [facility] [address] [id number] [place] [address]- 9313 May, [facility] [place] [facility] [address] [id number] [place] [address]- 8004 May, [facility] [place] [facility] [address] [id number] [place] [address]- 1414 May, [facility] [place] [facility] [address] [id number] [place] [address]- 0698 May, [facility] [place] [facility] [address] [id number] [place] [address]- 3612 May, [facility] [place] [facility] [address] [id number] [place] [address]- 4191 May, [facility] [place] [facility] [address] [id number] [place] [address]- 3603 May, [facility] [place] [facility] [address] [id number] [place] [address]- 5683 Apr, [facility] [place] [facility] [address] [id number] [place] [address]- 7196 Apr, [facility] [place] [facility] [address] [id number] [place] [address]- 5455 Apr, [facility] [place] [facility] [address] [id number] [place] [address]- 7777 Apr, [facility] [place] [facility] [address] [id number], [place] [address]- 1889 Apr, [facility] [place] [facility] [address] [id number], [place] [address]- 6950 Apr, [facility] [place] [facility] [address] [id number], [place] [address]- 7392 Apr, [facility] [place] [facility] [address] [id number] [place] [address]- 4581 March, [facility] [place] [facility] [address] [id number] [place] [address]- 5581 Feb, [facility] [place] [facility] [address] [id number], [place] [address]- 1350 Feb, [facility] [place] [facility] [address] [id number], [place] [address]- 0287 12 Feb, 2013 [facility] [place] [facility] [address] [id number] [place] [address]- 9198 28 Jan, 2013 [facility] [place] [facility] [address] [id number] [place] [address]- 3050 21 Jan, 2013 [facility] [place] [address] [id number] [place] [address]- 4601 19 Jan, 2013 [facility] [place] [facility] [address] [id number] [place] [address]- 2785 14 Jan, 2013 [facility] [place] [address] [id number] [place] [address]- 4788 12 Jan, 2013 [facility] [address] [facility] [id number] [place] [address]- 5451 08 Jan, 2013 [facility] [address] [facility] [id number] [place] [address]- 3150 07 Jan, 2013 [facility] [place] [facility] [address] [facility] [id number] [place] [address]- 2247 04 Jan, 2013 [facility] [place] [address] [id number] [place] [address]- 1383 28 Dec, 2012 [facility] [address] [facility] [id number] [place] [address]- 9166 25 Dec, 2012 [facility] [place] [facility] [address] [facility] [id number] [place] [address]- 2850 13 Dec, 2012 [facility] [place] [facility] [address] [facility] [id number] [place] [address]- 6225 11 Dec, 2012 [facility] [place] [facility] [address] [id number] [place] [address]- 8812 07 Dec, 2012 [facility] [place] [facility] [address] [id number] [place] [address]- 8051 06 Dec, 2012 [facility] [place] [facility] [address] [facility] [id number], [place] [address]- 3911 05 Dec, 2012 [facility] [place] [facility] [address] [id number] [place] [address]- 9518 Nov, [facility] [address] [id number] [place] [address]- 0957 24 Nov, 2012 [facility] [address] [id number] [place] [address]- 7406 Nov, [facility] [address] [id number] [place] [address]- 6397 Nov, [facility] [address] [id number] [place] [address]- 8385 Nov, [facility] [place] [address] [id number] [place] [address]- 8516 Nov, [facility] [address] [id number] [place] [address]- 1498 Nov, [facility] [address] [id number] [place] [address]- 9660 Oct, [facility] [address] [id number] [place] [address]- 3780 Oct, [facility] [place] [address] [id number] [place] [address]- 6020 Oct, [facility] [place] [facility] [address] [id number] [place] [address] Oct, [facility] [place] [facility] [address] [id number] [place] [address] Oct, [facility] [place] [facility] [address] [id number] [place] [address] Oct, [facility] [place] [facility] [address] [id number] [place] [address] Oct, [facility] [place] [facility] [address] [id number] [place] [address] Oct, [facility] [place] [facility] [address] [id number], [place] [address] Oct, [facility] [place] [facility] [address] [id number] [place] [address] Oct, [facility] [place] [facility] [address] [id number] [address] Oct, [facility] [place] [facility] [address] [facility] [id number] [place] [address] Oct, [facility] [place] [facility] [address] [id number], [place] [address] Sep, [facility] [place] [facility] [address] [id number] [place] [address] Sep, [facility] [place] [facility] [address] [id number] [place] [address] Sep, [facility] [place] [facility] [address] [id number], [place] [address] Sep, [facility] [place] [facility] [address] [id number], [place] [address] Sep, [facility] [place] [facility] [address] [id number], [place] [address] Sep, [facility] [place] [facility] [address] [facility] [id number], [place] [address] Sep, [facility] [place] [facility] [address] [id number], [place] [address] Sep, [facility] [place] [facility] [address] [id number], [place] [address] Sep, [facility] [place] [facility] [address] [id number], [place] [address] Sep, [facility] [place] [facility] [address] [id number], [place] [address] Sep, [facility] [place] [facility] [address] [id number] [place] [address] Aug, [facility] [place] [facility] [address] [id number] [place] [address] Aug, [facility] [place] [facility] [address] [id number] [place] [address] Aug, [facility] [place] [facility] [address] [id number] [place] [address] Aug, [facility] [place] [facility] [address] [id number] [place] [address] Aug, [facility] [place] [facility] [address] [id number] [place] [address] Aug, [facility] [place] [facility] [address] [id number] [place] [address] Aug, [facility] [place] [facility] [address] [id number] [place] [address] Aug, [facility] [place] [facility] [address] [id number] [place] [address] Aug, [facility] [place] [facility] [address] [id number] [place] [address] Aug, [facility] [place] [facility] [address] [id number] [place] [address]- [address] 22 Jul, 2012 [facility] [place] [facility] [address] [id number] [place] [address] 20 Jul, 2012 [facility] [place] [facility] [address] [id number] [place] [address]- [address] 10 Jul, 2012 [facility] [place] [facility] [address] [id number] [place] [address]- [address] 06 Jul, 2012 [facility] [place] [facility] [address] [id number] [place] [address]- [address] 30 Jun, 2012 [facility] [place] [facility] [address] [id number] [place] [address] Jun, [facility] [place] [facility] [address] [id number] [place] [address] Jun, [facility] [place] [facility] [address] [id number] [place] [address]- [address] Jun, [facility] [place] [facility] [address] [id number] [place] [address] Jun, [facility] [place] [facility] [address] [id number] [place] [address] Jun, [facility] [place] [facility] [address] [id number] [place] [address]- [address] Jun, [facility] [place] [facility] [address] [id number] [place] [address]- [address] May, [facility] [place] [facility] [address] [id number] [place] [address]- [address] May, [facility] [place] [facility] [address] [id number] [place] [address]- [address] May, [facility] [place] [facility] [address] [id number] [place] [address]- [address] May, [facility] [place] [facility] [address] [id number] [place] [address]- [address] May, [facility] [place] [facility] [address] [id number] [place] [address]- [address] Apr, [facility] [place] [facility] [address] [id number] [place] [address]- [address] Apr, [facility] [place] [facility] [address] [id number] [place] [address]- 4[address] Apr, [facility] [place] [facility] [address] [id number] [place] [address]- [address] Apr, [facility] [place] [facility] [address] [id number] [place] [address]- 48[address] Apr, [facility] [place] [facility] [address] [id number] [place] [address] March, [facility] [place] [facility] [address] [id number] [place] [address] March, [facility] [address] [id number] [place] [address] March, [facility] [place] [facility] [address] [id number] [place] [address] March, [facility] [address] [id number] [place] [address]- [address] March, [facility] [place] [facility] [address] [id number] [place] [address]- 8597 March, [facility] [address] [id number] [place] [address]- 9565 March, [facility] [address] [id number] [place] [address]- 4465 March, [facility] [address] [id number] [place] [address]- [address] March, [facility] [address] [id number] [place] [address]- [address]200 March, [facility] [address] [id number] [place] [address]- [address] 30 Feb, 2012 [facility] [place] [facility] [address] [id number] [place] [address]- [address] Feb, [facility] [place] [facility] [address] [id number] [place] [address]- [address]331 26 Feb, 2012 [facility] [place] [facility] [address] [id number] [place] [address]- 8547 19 Feb, 2012 [facility] [place] [facility] [address] [id number] [place] [address]- 0472 17 Feb, 2012 [facility] [place] [facility] [address] [id number] [place] [address]- 5633 Feb, [facility] [place] [facility] [address] [id number] [place] [address] 12 Feb, 2012 [facility] [place] [facility] [address] [id number] [place] [address] Feb, [facility] [address] [id number] [place] [address] Feb, [facility] [place] [facility] [address] [id number] [place] [address] Jan, [facility] [place] [facility] [address] [id number] [place] [address] Jan, [facility] [place] [facility] [address] [id number] [place] [address] Jan, [facility] [place] [facility] [address] [id number] [place] [address] Jan, [facility] [address] [id number] [place] [address] Dec, [facility] [place] [facility] [address] [id number] [place] [address] Dec, [facility] [place] [facility] [address] [id number] [place] [address] Nov, [facility] [address] [id number] [place] [address] Nov, [facility] [place] [facility] [address] [id number] [place] [address] Nov, [facility] [place] [facility] [address] [id number] [place] [address] Nov, [facility] [place] [facility] [address] [id number] [place] [address] Nov, [facility] [place] [facility] [address] [id number] [place] [address] Oct, [facility] [place] [facility] [address] [id number] [place] [address] Oct, [facility] [place] [facility] [address] [id number] [id number] Oct, [facility] [address] [facility] [id number], [place] [address] Oct, [facility] [address] [id number] [address] Oct, [facility] [address] [id number] [address] [address] Oct, [facility] [address] [id number] [address] Oct, [facility] [address] [id number], [place] [address] Oct, [facility] [address] [id number], [place] [address] Sep, IMMUNIZATIONS No Known Immunizations SOCIAL HISTORY Never Assessed [facility] PLAN OF CARE VITAL SIGNS MEDICATIONS Medication [...]
[2018-09-04 12:09] LABS: AMORPHOUS SEDIMENT,UR RARE AMOR PHOSPHATE /LPF; BACTERIA,URINE FEW /HPF; RBC,URINE 50-100 /HPF
[2018-09-04 12:16] LABS: ALANINE AMINOTRANSFERASE 20 U/L (0-55); ALBUMIN 3.9 GM/DL (3.2-4.5); ALKALINE PHOSPHATASE 66 U/L (40-136); BILIRUBIN,TOTAL 0.6 MG/DL (0.1-1.0); BUN/CREATININE RATIO 26; CALCIUM 9.6 MG/DL (8.5-10.1); CARBON DIOXIDE 23 MMOL/L (21-32); CHLORIDE 104 MMOL/L (98-107); GFR ESTIMATED > 60; GLUCOSE 140 MG/DL (70-105); POTASSIUM 4.9 MMOL/L (3.6-5.0); SODIUM 139 MMOL/L (135-145); TOTAL PROTEIN 7.4 GM/DL (6.4-8.2)
[2018-09-04] MEDS ORDERED: fentaNYL INJECTION 100 MCG/2 ML AMP IVP STA (12:21)
--- OUTSIDE RECORDS SUMMARY | 2018-09-04 12:28 | XMS REPORT | Continuity of Care Document ---
Author Author [facility] Address Unknown Phone Unavailable Allergies [...] Allergy N/A N/A 05/19/2013 Yes diphenhydramine HCl [id number] Drug Allergy Unknown N/A 05/14/2016 Yes hydrochlorothiazide [id number] Drug Allergy Unknown N/A 05/14/2016 Yes varenicline tartrate [id number] Drug Allergy Unknown N/A 05/14/2016 Yes Sulfa (Sulfonamide Antibiotics) [id number] Drug Allergy Unknown N/A 2016 Medications There [...] 246.9 UNSPECIFIED DISORDER OF THYROID 11/06/2011 BAIG MUSIC REHABILITATION THERAPIST, DESI HOUSTON 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 11/06/2011 BAIG MUSIC REHABILITATION THERAPIST, DESI HOUSTON 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 11/06/2011 BAIG MUSIC REHABILITATION THERAPIST, DESI HOUSTON 496 CHRONIC OBSTRUCTIVE PULMONARY DISEASE 11/06/2011 BAIG MUSIC REHABILITATION THERAPIST, DESI HOUSTON 683 ACUTE LYMPHADENITIS 11/06/2011 BAIG MUSIC REHABILITATION THERAPIST, DESI HOUSTON 246.9 UNSPECIFIED DISORDER OF THYROID 11/06/2011 BAIG MUSIC REHABILITATION THERAPIST, DESI HOUSTON 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 11/06/2011 BAIG MUSIC REHABILITATION THERAPIST, DESI HOUSTON 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 11/06/2011 BAIG MUSIC REHABILITATION THERAPIST, DESI HOUSTON 496 CHRONIC OBSTRUCTIVE PULMONARY DISEASE 11/06/2011 BAIG MUSIC REHABILITATION THERAPIST, DESI HOUSTON 683 ACUTE LYMPHADENITIS 11/06/2011 TARI WOODSN, AUDIE R 246.9 UNSPECIFIED DISORDER OF THYROID 11/06/2011 TARI MUSIC REHABILITATION THERAPIST, AUDIE R 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 11/06/2011 TARI MUSIC REHABILITATION THERAPIST, AUDIE R 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 11/06/2011 TARI MUSIC REHABILITATION THERAPIST, AUDIE R 496 CHRONIC OBSTRUCTIVE PULMONARY DISEASE 11/06/2011 TARI MUSIC REHABILITATION THERAPIST, AUDIE R 683 ACUTE LYMPHADENITIS 11/06/2011 JIMMY WOODSN, SHAHNAZ S 246.9 UNSPECIFIED DISORDER OF THYROID 11/06/2011 JIMMY MUSIC REHABILITATION THERAPIST, SHAHNAZ S 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 11/06/2011 JIMMY MUSIC REHABILITATION THERAPIST SHAHNAZ S 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 11/06/2011 JIMMY MUSIC REHABILITATION THERAPIST, SHAHNAZ S 496 CHRONIC OBSTRUCTIVE PULMONARY DISEASE 11/06/2011 JIMMY BURGOS, SHAHNAZ S 683 ACUTE LYMPHADENITIS 11/06/2011 MAX DHILLON APRN T 246.9 UNSPECIFIED DISORDER OF THYROID 11/06/2011 JACQUIE BURGOS AMX T 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 11/06/2011 JACQUIE BURGOS [...] 246.9 UNSPECIFIED DISORDER OF THYROID 11/06/2011 JANINA FISHER SPEARMASSIEL M 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 11/06/2011 JANINA FISHER SPEARMINGOMASSILE M 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 11/06/2011 JANINA FISHER SPEAR, MASSIEL M 496 CHRONIC OBSTRUCTIVE PULMONARY DISEASE 11/06/2011 JANINA FISHER SPEAR, MASSIEL M 683 ACUTE LYMPHADENITIS 11/06/2011 HAZEL [...] 296.30 MO DEPRESSIVE RECURRENT UNSPECIFIED 12/18/2011 JIMMY MUSIC REHABILITATION THERAPIST, SHAHNAZ S 296.30 MO DEPRESSIVE RECURRENT UNSPECIFIED [...] BUTLER DO 307.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 05/29/2012 CAORLINE MENDOZA MD 307.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 05/29/2012 [...] 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 06/05/2012 CARLOINE MENDOZA MD V58.69 MEDICATION HIGH RISK 06/05/2012 [...] 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 06/05/2012 CARLOINE MENDOZA MD V58.69 MEDICATION HIGH RISK 06/05/2012 [...] AN PANIC DIS W/O AGORA 06/18/2012 SHARIF JONHSON MD 300.01 AN PANIC DIS W/O AGORA [...] PANIC DIS W/O AGORA 06/18/2012 MARIA DE EJSUS BUTLER DO 300.01 AN PANIC DIS W/O [...] 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 06/27/2012 BAIG MUSIC REHABILITATION THERAPIST, DESI CONRAD 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 06/27/2012 SHARIF JOHNSON MD N 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 06/27/2012 SHARIF JOHNSON MD N 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 06/27/2012 JOVANNI MUSIC REHABILITATION THERAPISTDESI Menjivar 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 06/27/2012 [...] CAROLINE MENDOZA MD 790.29 HYPERGLYCEMIA 12/18/2012 JOVANNI MUSIC REHABILITATION THERAPIST, DESI CONRAD 272.4 HYPERLIPIDEMIA 12/18/2012 JOVANNI MUSIC REHABILITATION THERAPIST, DESI CONRAD 790.29 HYPERGLYCEMIA 12/18/2012 JOVANNI MUSIC REHABILITATION THERAPIST, DESI CONRAD 272.4 HYPERLIPIDEMIA 12/18/2012 JOVANNI MUSIC REHABILITATION THERAPIST, DESI CONRAD 790.29 HYPERGLYCEMIA 12/18/2012 MARC MUSIC REHABILITATION THERAPIST, AUDIE R 272.4 HYPERLIPIDEMIA 12/18/2012 MARC MUSIC REHABILITATION THERAPIST, AUDIE R 790.29 HYPERGLYCEMIA 12/18/2012 JIMMY MUSIC REHABILITATION THERAPIST, SHAHNAZ S 272.4 HYPERLIPIDEMIA 12/18/2012 JIMMY MUSIC REHABILITATION THERAPIST, SHAHNAZ S 790.29 HYPERGLYCEMIA 12/18/2012 JACQUIE MUSIC REHABILITATION THERAPIST, MAX T 272.4 HYPERLIPIDEMIA 12/18/2012 JACQUIE BURGOS, MAX T 790.29 HYPERGLYCEMIA 12/18/2012 JACQUIE MUSIC REHABILITATION THERAPIST, MAX T 272.4 HYPERLIPIDEMIA 12/18/2012 JACQUIE MUSIC REHABILITATION THERAPIST, MAX T 790.29 HYPERGLYCEMIA 12/18/2012 HAZEL DO, [...] JOHNSON MD 491.21 BRONCHITIS AECB 07/01/2013 JOVANNI BURGOS DESI CONRAD 491.21 BRONCHITIS AECB 07/01/2013 SHARIF [...] AECB 07/09/2013 SHANIQUE VEGA MD Ot 272.4 HYPERLIPIDEMIA NEC/NOS 07/09/2013 SHANIQUE VEGA MD Ot 300.00 ANXIETY STATE NOS 07/09/2013 SHANIQUE VEGA MD Ot 305.1 TOBACCO USE DISORDER 07/09/2013 SHANIQUE VEGA MD Ot 311 DEPRESSIVE DISORDER NEC 07/09/2013 GARY ROLDAN, SHANIQUE Funk Ot 338.29 OTHER CHRONIC PAIN 07/09/2013 SHANIQUE VEGA MD Ot 401.9 HYPERTENSION NOS 07/09/2013 SHANIQUE VEGA MD Ot 414.01 CORONARY ATHEROSCLEROSIS OF [place] CORON 07/09/2013 SHANIQUE VEGA MD Ot 491.21 OBSTR CHRONIC BRONCHITIS, W (ACUTE) EXAC 07/09/2013 SHANIQUE VEGA MD Ot 724.2 LUMBAGO 07/09/2013 SHANIQUE VEGA MD Ot 790.29 OTHER ABNORMAL GLUCOSE 07/09/2013 SHANIQUE VEGA MD Ot E932.0 ADV EFF CORTICOSTEROIDS 09/22/2013 CAROLINE MENDOZA MD 271.3 GLUCOSE INTOLERANCE 09/22/2013 CAROLINE MENDOZA MD V05.8 ZOSTAVAX DX 09/22/2013 JOVANNI BURGOS DESI SINGHH 271.3 GLUCOSE INTOLERANCE 09/22/2013 JOVANNI BURGOS DESI CONRAD V05.8 ZOSTAVAX DX 09/22/2013 JOVANNI BURGOS DESI CONRAD 271.3 GLUCOSE INTOLERANCE 09/22/2013 JOVANNI BURGOS DESI CONRAD V05.8 ZOSTAVAX DX 09/22/2013 AUDIE MARC APRN R 271.3 GLUCOSE INTOLERANCE 09/22/2013 AUDIE MARC APRN R V05.8 ZOSTAVAX DX 09/22/2013 SHAHNAZ MARQUEZ APRN S 271.3 GLUCOSE INTOLERANCE 09/22/2013 SHAHNAZ MARQUEZ APRN S V05.8 ZOSTAVAX DX 09/22/2013 MAX DHILLON APRN 271.3 GLUCOSE INTOLERANCE 09/22/2013 MAX DHILLON APRN V05.8 ZOSTAVAX DX 09/22/2013 MAX DHILLON APRN 271.3 GLUCOSE INTOLERANCE 09/22/2013 MAX DHILLON APRN V05.8 ZOSTAVAX DX 09/22/2013 MIKE HAZEL DO K 271.3 GLUCOSE INTOLERANCE 09/22/2013 CHANDA HAZEL DOA K V05.8 ZOSTAVAX DX 09/22/2013 CAROLINE MENDOZA MD 271.3 GLUCOSE INTOLERANCE 09/22/2013 CRAOLINE MENDOZA MD V05.8 ZOSTAVAX DX 09/22/2013 CAROLINE [...] SHARIF JOHNSON MD V05.8 ZOSTAVAX DX 09/22/2013 JANINA SCHREIBER, MASSIEL M 271.3 GLUCOSE INTOLERANCE 09/22/2013 MASSIEL VEGA V05.8 ZOSTAVAX DX 09/22/2013 MIKE HAZEL DO K 271.3 GLUCOSE INTOLERANCE 09/22/2013 MIKE HAZEL DO V05.8 ZOSTAVAX DX 09/22/2013 ELIZABETH ROLDAN, SHARIF Menjivar 271.3 GLUCOSE INTOLERANCE 09/22/2013 ELIZABETH ROLDAN, SHARIF Menjivar V05.8 ZOSTAVAX DX 09/22/2013 SHANIQUE VEGA MD 271.3 GLUCOSE INTOLERANCE 09/22/2013 SHANIQUE VGEA MD V05.8 ZOSTAVAX DX 09/22/2013 SHARIF JOHNSON MD 271.3 GLUCOSE INTOLERANCE 09/22/2013 ELIZABETH ROLDAN, SHARIF Menjivar V05.8 ZOSTAVAX DX 09/22/2013 SHARIF JOHNSON MD 271.3 GLUCOSE INTOLERANCE 09/22/2013 SHARIF JOHNSON MD V05.8 ZOSTAVAX DX 09/22/2013 SHANIQUE VEGA MD 271.3 GLUCOSE INTOLERANCE 09/22/2013 SHANIQUE VEGA MD V05.8 ZOSTAVAX DX 11/09/2013 AUDIE MARC APRN R 786.07 WHEEZING 11/09/2013 AUDEI MARC APRN R 786.2 COUGH 11/09/2013 AUDIE [...] APRN V65.42 COUNSELING - SMOKING CESSATION 11/09/2013 MIKE HAZEL DO 786.07 WHEEZING 11/09/2013 HAZEL DO, MIKE K [...] V65.42 COUNSELING - SMOKING CESSATION 11/09/2013 SHARIF JHONSON MD N 786.07 WHEEZING 11/09/2013 SHARIF JOHNSON [...] N V65.42 COUNSELING - SMOKING CESSATION 11/09/2013 JOVANNI BURGOS, DESI CONRAD 786.07 WHEEZING 11/09/2013 JOVANNI BURGOS, DESI CONRAD 786.2 COUGH 11/09/2013 JOVANNI BURGOS DESI CONRAD V65.42 COUNSELING - SMOKING CESSATION 11/09/2013 SHARIF JOHNSON MD N 786.07 WHEEZING 11/09/2013 SHARIF JOHNSON MD 786.2 COUGH 11/09/2013 SHARIF JOHNSON MD N V65.42 COUNSELING - SMOKING CESSATION 11/09/2013 SHARIF JOHNSON MD 786.07 WHEEZING 11/09/2013 SHARIF JOHNSON MD 786.2 COUGH 11/09/2013 SHARIF JOHNSON MD N V65.42 COUNSELING - SMOKING CESSATION 11/09/2013 MASSIEL [...] MD V65.42 COUNSELING - SMOKING CESSATION 11/09/2013 ELIZABETH ROLDAN, SHARIF Menjivar 786.07 WHEEZING 11/09/2013 ELIZABETH ROLDAN, SHARIF Menjivar 786.2 COUGH 11/09/2013 ELIZABETH ROLDAN, SHARIF Menjivar V65.42 COUNSELING - SMOKING CESSATION 11/09/2013 SHANIQUE VEGA MD 786.07 WHEEZING 11/09/2013 GARY ROLDAN, SHANIQUE 786.2 COUGH 11/09/2013 SHANIQUE VEGA MD V65.42 COUNSELING - SMOKING CESSATION 11/12/2013 JIMMY MUSIC REHABILITATION THERAPIST, SHAHNAZ S 486 PNEUMONIA UNSPECIFIED 11/12/2013 JACQUIE MUSIC REHABILITATION THERAPIST, MAX T 486 PNEUMONIA UNSPECIFIED 11/12/2013 JACQUIE MUSIC REHABILITATION THERAPIST, MAX T 486 PNEUMONIA UNSPECIFIED 11/12/2013 MIKE HAZEL DO K 486 PNEUMONIA UNSPECIFIED 11/12/2013 REJI ROLDAN, [...] N 486 PNEUMONIA UNSPECIFIED 11/12/2013 MASSIEL VEGA 486 PNEUMONIA UNSPECIFIED 11/12/2013 ILIR VILLALOBOS, MIKE K 486 PNEUMONIA UNSPECIFIED 11/12/2013 ELIZABETH ROLDAN, SHARIF N 486 PNEUMONIA UNSPECIFIED 11/12/2013 SHANIQUE VEGA MD 486 PNEUMONIA UNSPECIFIED 11/12/2013 ELIZABETH ROLDAN, SHARIF N 486 PNEUMONIA UNSPECIFIED 11/12/2013 ELIZABETH ROLDAN, SHARIF N 486 PNEUMONIA UNSPECIFIED 11/12/2013 SHANIQUE VEGA MD 486 PNEUMONIA UNSPECIFIED 11/14/2013 SHARIF JOHNSON MD N Ot 272.4 HYPERLIPIDEMIA NEC/NOS 11/14/2013 SHARIF JOHNSON MD Ot 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 11/14/2013 SHARIF JOHNSON MD N Ot 401.9 HYPERTENSION NOS 11/14/2013 SHARIF JOHNSON MD N Ot 491.21 OBSTR CHRONIC BRONCHITIS, W (ACUTE) EXAC 11/14/2013 SHARIF JOHNSON MD Ot 715.90 OSTEOARTHROS NOS-UNSPEC 12/11/2013 MAX DHILLON [...] MD N 466.0 BRONCHITIS, ACUTE 12/11/2013 SHARIF JONHSON MD N 466.0 BRONCHITIS, ACUTE 12/11/2013 SHARIF [...] MIKE HAZEL DO 466.0 BRONCHITIS, ACUTE 12/11/2013 SHARIF JOHNSON MD N 466.0 BRONCHITIS, ACUTE 12/11/2013 SHANIQUE VEGA MD 466.0 BRONCHITIS, ACUTE 12/11/2013 SHARIF JOHNSON MD N 466.0 BRONCHITIS, ACUTE 12/11/2013 SHARIF JOHNSON MD 466.0 BRONCHITIS, ACUTE 12/11/2013 SHANIQUE VEGA MD 466.0 BRONCHITIS, ACUTE 12/15/2013 MAX DHILLON APRN 719.07 EDEMA FOOT 12/15/2013 MAX DHILLON APRN [...] N 786.05 SHORTNESS OF BREATH 12/15/2013 JOVANNI BURGOS, DESI CONRAD 719.07 EDEMA FOOT 12/15/2013 JOVANNI BURGOS, DESI [...] N 786.05 SHORTNESS OF BREATH 12/15/2013 JOVANNI BURGOS, DESI CONRAD 719.07 EDEMA FOOT 12/15/2013 JOVANNI BURGOS, DESI [...] VEGA MD 786.05 SHORTNESS OF BREATH 12/30/2013 HAZEL DO, MIKE K 782.3 Edema 12/30/2013 CAROLINE MENDOZA MD 782.3 Edema 12/30/2013 CAROLINE MENDOZA MD 782.3 Edema 12/30/2013 SHARIF JOHNSON MD N 782.3 Edema 12/30/2013 SHARIF JOHNSON MD 782.3 Edema 12/30/2013 SHARIF JOHNSON MD 782.3 Edema 12/30/2013 SHARIF JOHNSON MD N 782.3 Edema 12/30/2013 ELIZABETH ROLDAN, SHARIF N 782.3 Edema 12/30/2013 JOVANNI BURGOSDESI 782.3 Edema 12/30/2013 ELIZABETH ROLDAN, SHARIF N 782.3 Edema 12/30/2013 ELIZABETH ROLDAN, SHARIF N 782.3 Edema 12/30/2013 JOVANNI BURGOS DESI CONRAD 782.3 Edema 12/30/2013 ELIZABETH ROLDAN, SHARIF N 782.3 Edema 12/30/2013 ELIZABETH ROLDAN, SHARIF N 782.3 Edema 12/30/2013 MASSIEL VEGA 782.3 Edema 12/30/2013 MIKE HAZEL DO 782.3 Edema 12/30/2013 ELIZABETH ROLDAN, SHARIF N 782.3 Edema 12/30/2013 SHANIQUE VEGA MD 782.3 Edema 12/30/2013 ELIZABETH ROLDAN, SHARIF N 782.3 Edema 12/30/2013 ELIZABETH ROLDAN, SHARIF N 782.3 Edema 12/30/2013 SHANIQUE VEGA MD 782.3 Edema 05/24/2014 DIANNA MACHADO MD Ot 278.00 OBESITY, NOS 05/24/2014 DIANNA MACHADO MD Ot 715.95 OSTEOARTHROS NOS-PELVIS 05/24/2014 DIANNA MACHADO MD Ot 721.3 LUMBOSACRAL SPONDYLOSIS 05/24/2014 DIANNA MACHADO MD Ot 722.52 LUMB/LUMBOSAC DISC DEGEN 05/24/2014 DIANNA MACHADO MD Ot 729.1 MYALGIA AND MYOSITIS NOS 05/24/2014 DIANNA MACHADO MD Ot V58.69 OT MED,LT,CURRENT USE 05/24/2014 DIANNA MACHADO MD Ot V85.33 BODY MASS INDEX 33.0-33.9, ADULT 06/07/2014 RUFINA PEREZ DO Ot 840.9 SPRAIN SHOULDER/ARM NOS 06/07/2014 RUFINA PEREZ DO Ot 923.11 CONTUSION OF ELBOW 06/07/2014 RUFINA PEREZ DO Ot E000.8 OTHER EXTERNAL CAUSE STATUS 06/07/2014 RUFINA PEREZ DO Ot E002.0 ACTIVITIES INVOLVING SWIMMING 06/07/2014 RUFINA PEREZ DO Ot E849.0 ACCIDENT IN HOME 06/07/2014 RUFINA PEREZ DO Ot E885.9 FALL FROM SLIPPING, TRIPPING, OR STUMBLI 06/28/2014 DIANNA MACHADO MD Ot 278.00 OBESITY, NOS 06/28/2014 DIANNA MACHADO MD Ot 715.95 OSTEOARTHROS NOS-PELVIS 06/28/2014 DIANNA MACHADO MD Ot 721.3 LUMBOSACRAL SPONDYLOSIS 06/28/2014 DIANNA MACHADO MD Ot 722.52 LUMB/LUMBOSAC DISC DEGEN 06/28/2014 DIANNA MACHADO MD Ot 729.1 MYALGIA AND MYOSITIS NOS 06/28/2014 DIANNA MACHADO MD Ot V58.69 OTH MED,LT,CURRENT USE 06/28/2014 DIANNA MACHADO MD Ot V85.32 BODY MASS INDEX 32.0-32.9, ADULT 09/15/2014 SHARIF JOHNSON MD 414.00 CORONARY ATHEROSCLEROSIS OF UNSPECIFIED TYPE OF VESSEL [place] OR GRAFT 09/15/2014 SHARIF JOHNSON MD 782.2 LOCALIZED SUPERFICIAL SWELLING MASS OR LUMP 09/15/2014 MASSIEL VEGA 414.00 CORONARY ATHEROSCLEROSIS OF UNSPECIFIED TYPE OF VESSEL [place] OR GRAFT 09/15/2014 MASSIEL VEGA 782.2 LOCALIZED SUPERFICIAL SWELLING MASS OR LUMP 09/15/2014 MIKE HAZEL DO K 414.00 CORONARY ATHEROSCLEROSIS OF UNSPECIFIED TYPE OF VESSEL [place] OR GRAFT 09/15/2014 MIKE HAZEL DO K 782.2 LOCALIZED SUPERFICIAL SWELLING MASS OR LUMP 09/15/2014 SHARIF JOHNSON MD N 414.00 CORONARY ATHEROSCLEROSIS OF UNSPECIFIED TYPE OF VESSEL [place] OR GRAFT 09/15/2014 SHARIF JOHNSON MD 782.2 LOCALIZED SUPERFICIAL SWELLING MASS OR LUMP 09/15/2014 SHANIQUE VEGA MD 414.00 CORONARY ATHEROSCLEROSIS OF UNSPECIFIED TYPE OF VESSEL [place] OR GRAFT 09/15/2014 SHANIQUE VEGA MD 782.2 LOCALIZED SUPERFICIAL SWELLING MASS OR LUMP 09/15/2014 SHARIF JOHNSON MD 414.00 CORONARY ATHEROSCLEROSIS OF UNSPECIFIED TYPE OF VESSEL [place] OR GRAFT 09/15/2014 SHARIF JOHNSON MD 782.2 LOCALIZED SUPERFICIAL SWELLING MASS OR LUMP 09/15/2014 SHARIF JOHNSON MD N 414.00 CORONARY ATHEROSCLEROSIS OF UNSPECIFIED TYPE OF VESSEL [place] OR GRAFT 09/15/2014 SHARIF JOHNSON MD 782.2 LOCALIZED SUPERFICIAL SWELLING MASS OR LUMP 09/15/2014 SHANIQUE VEGA MD 414.00 CORONARY ATHEROSCLEROSIS OF UNSPECIFIED TYPE OF VESSEL [place] OR GRAFT 09/15/2014 SHANIQUE VEGA MD 782.2 LOCALIZED SUPERFICIAL SWELLING MASS OR LUMP 09/30/2014 DIANNA MACHADO MD Ot 278.00 09/30/2014 DIANNA MACHADO MD Ot 715.95 09/30/2014 DIANNA MACHADO MD Ot 721.3 09/30/2014 DIANNA MACHADO MD Ot 729.1 09/30/2014 DIANNA MACHADO MD Ot V58.69 09/30/2014 DIANNA MACHADO MD Ot V85.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 11/02/2014 MIKE HAZEL DO Ot 311 DEPRESSIVE DISORDER NEC 11/02/2014 MIKE HAZEL DO Ot 414.01 CORONARY ATHEROSCLEROSIS OF [place] CORON 11/02/2014 MIKE HAZEL DO Ot 491.20 OBSTR CHRONIC BRONCHITIS, W/O EXACERBATI 11/02/2014 MIKE HAZEL DO Ot 599.0 URIN TRACT INFECTION NOS 11/02/2014 MIKE HAZEL DO Ot 715.35 LOC OSTEOARTH NOS-PELVIS 11/02/2014 MIKE HAZEL DO Ot 780.97 ALTERED MENTAL STATUS 11/02/2014 MIKE HAZEL DO Ot 781.2 ABNORMALITY OF GAIT 11/02/2014 MIKE HAZEL DO Ot 969.4 POIS-BENZODIAZEPINE BASS 11/02/2014 MIKE HAZEL DO Ot E853.2 ACC POISN-BENZDIAZ TRANQ 11/02/2014 MIKE HAZEL DO Ot V15.88 HISTORY OF FALL 11/02/2014 MIKE HAZEL DO Ot V45.82 PERCUTANEOUS TRANSLUM CORON ANGIOPLASTY 11/02/2014 MIKE HAZEL DO Ot 276.51 11/02/2014 MIKE HAZEL DO Ot 300.01 11/02/2014 HAZEL DOCHANDAA K Ot 311 11/02/2014 HAZEL DO, MIKE K Ot 414.01 11/02/2014 HAZEL DO, MIKE K Ot 491.20 11/02/2014 HAZEL DO, MIKE K Ot 599.0 11/02/2014 HAZEL DOCHANDAA K Ot 715.35 11/02/2014 HAZEL DOCHANDAA K Ot 780.97 11/02/2014 HAZEL DOCHANDAA K Ot 781.2 11/02/2014 HAZEL DO, MIKE K Ot 969.4 11/02/2014 HAZEL CHANDA VILLALOBOSA K Ot E853.2 11/02/2014 HAZEL CHANDA VILLALOBOSA K Ot V15.88 11/02/2014 CHANDA HAZEL DOA K Ot V45.82 11/05/2014 SHANIQUE VEGA MD Ot 338.29 OTHER CHRONIC PAIN 11/05/2014 SHANIQUE VEGA MD Ot 719.41 JOINT PAIN-SHLDER 11/05/2014 SHANIQUE VEGA MD Ot 780.79 OTH MALAISE FATIGUE 11/05/2014 SHANIQUE VEGA MD Ot V13.02 PERSONAL HISTORY, URINARY (TRACT) INFECT 11/11/2014 JAJA ROLDAN, EMANUEL A Ot 787.02 NAUSEA ALONE 11/26/2014 SHARIF JOHNSON MD 787.02 NAUSEA ALONE 11/26/2014 SHANIQUE VEGA MD 787.02 NAUSEA ALONE 11/26/2014 SHARIF JOHNSON MD 787.02 NAUSEA ALONE 11/26/2014 SHARIF JOHNSON MD 787.02 NAUSEA ALONE 11/26/2014 SHANIQUE VEGA MD 787.02 NAUSEA ALONE 12/03/2014 DIANNA MACHADO MD Ot 715.95 OSTEOARTHROS NOS-PELVIS 12/03/2014 DIANNA MACHADO MD Ot 721.3 LUMBOSACRAL SPONDYLOSIS 12/03/2014 DIANNA MACHADO MD Ot 729.1 MYALGIA AND MYOSITIS NOS 12/03/2014 DIANNA MACHADO MD Ot V58.69 OTH MED,LT,CURRENT USE 12/08/2014 SHARIF JOHNSON MD N 401.9 HYPERTENSION, [...] ROLDAN FACC, ALI FACP CCDS Ot 414.01 CORONARY ATHEROSCLEROSIS OF [place] CORON 12/28/2014 BISHNU ROLDAN FACC, ALI FACP CCDS Ot 414.4 CORONARY ATHEROSCLEROSIS DUE TO CALCIFIE 12/28/2014 BISHNU ROLDAN FACC, ALI FACP CCDS Ot 440.0 AORTIC ATHEROSCLEROSIS 12/28/2014 BISHNU ROLDAN FACC, ALI FACP CCDS Ot 440.1 RENAL ARTERY ATHEROSCLER 12/28/2014 BISHNU ROLDAN FACC, ALI FACP CCDS Ot 440.20 ATHEROSCLEROSIS [place] ARTERIES EXTREMIT 12/28/2014 BISHNU ROLDAN FACC, ALI FACP CCDS Ot 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 12/28/2014 BISHNU ROLDAN FACC, ALI FACP CCDS Ot 441.4 ABDOM AORTIC ANEURYSM 12/28/2014 BISHNU ROLDAN FACC, ALI FACP CCDS Ot 786.09 RESPIRATORY ABNORM NEC 12/28/2014 BISHNU ROLDAN FACC, ALI FACP CCDS Ot V58.69 OT MED,LT,CURRENT USE 02/07/2015 SASHA ROLDAN, MYRNA E Ot 272.4 [...] MYRNA E Ot 788.43 02/14/2015 SASHA ROLDAN, YMRNA E Ot V15.82 02/14/2015 SASHA ROLDAN, MYRNA [...] SASHA ROLDAN, MYRNA E Ot V15.82 02/17/2015 SSAHA ROLDAN, MYRNA E Ot V45.81 02/17/2015 SASHA ROLDAN, MYRNA E Ot V46.2 02/17/2015 SASHA ROLDAN, MYRNA E Ot V57.89 02/17/2015 Ot 388.30 02/17/2015 Ot 780.4 02/17/2015 Ot 796.2 02/17/2015 Ot 799.51 02/17/2015 CAROLINE MENDOZA MD Ot 338.29 02/17/2015 REJI ROLDAN, CAROLINE Magaña Ot 722.6 02/17/2015 CAROLINE MENDOZA MD Ot 724.2 02/17/2015 CAROLINE MENDOZA MD Ot 724.4 02/17/2015 MAX DHILLON COLLECTION SUPPORT SPECIALIST Ot 401.1 02/17/2015 MAX DHILLON COLLECTION SUPPORT SPECIALIST Ot 424.1 02/17/2015 MAX DHILLON COLLECTION SUPPORT SPECIALIST Ot 785.2 02/17/2015 MAX DHILLON COLLECTION SUPPORT SPECIALIST Ot 786.05 02/17/2015 ANDRE HERNANDEZ DO Ot 715.91 02/17/2015 ANDRE HERNANDEZ DO Ot 727.61 02/17/2015 DIANNA MACHADO MD Ot 278.00 02/17/2015 DIANNA MACHADO MD Ot 721.3 02/17/2015 DIANNA MACHADO MD Ot 724.6 02/17/2015 DIANNA MACHADO MD Ot 729.1 02/17/2015 DIANNA MACHADO MD Ot V58.69 02/17/2015 DIANNA MACHADO MD Ot V85.35 02/17/2015 JEANNETTE ROLDAN, DIANNA Adhikari Ot 278.00 02/17/2015 JEANNETTE ROLDAN, DIANNA Adhikari Ot 715.95 02/17/2015 JEANNETTE ROLDAN, DIANNA Adhikari Ot 721.3 02/17/2015 JEANNETTE ROLDAN, DIANNA Adhikari Ot 729.1 02/17/2015 JEANNETTE ROLDAN, DIANNA Adhikari Ot V58.69 02/17/2015 JEANNETTE ROLDAN, DIANNA Adhikari Ot V85.33 02/17/2015 GARY ROLDAN, SHANIQUE F [...] MYRNA E Ot V15.82 02/17/2015 SASHA ROLDAN, MYNRA E Ot V45.81 02/17/2015 SASHA ROLDAN, MYRNA [...] ROLDAN, MYRNA E Ot V57.89 02/19/2015 SASHA RODLAN, MYRNA E Ot 272.4 02/19/2015 SASHA ROLDAN, [...] SASHA ROLDAN, MYRNA E Ot V45.81 02/19/2015 ASSHA ROLDAN, MYRNA E Ot V46.2 02/19/2015 SASHA [...] SASHA ROLDAN, MYRNA E Ot 300.00 02/24/2015 BAEZ MD, MYRNA E Ot 401.9 02/24/2015 SASHA ROLDAN MYRNA E Ot 414.01 02/24/2015 SASHA ROLDAN MYRNA E Ot 427.31 02/24/2015 SASHA ROLDAN MYRNA E Ot 496 02/24/2015 SASHA ROLDAN MYRNA E Ot 530.81 02/24/2015 SASHA ROLDAN MYRNA E Ot 715.31 02/24/2015 SASHA ROLDAN MYRNA E Ot 715.35 02/24/2015 SASHA ROLDAN MYRNA E Ot 721.90 02/24/2015 SASHA ROLDAN MYRNA E Ot 733.00 02/24/2015 SASHA ROLDAN MYRNA E Ot 786.09 02/24/2015 SASHA ROLDAN MYRNA E Ot 788.43 02/24/2015 SASHA ROLDAN MYRNA E Ot V15.82 02/24/2015 SASHA ROLDAN MYRNA E Ot V45.81 02/24/2015 SASHA ROLDAN MYRNA E Ot V46.2 02/24/2015 SASHA ROLDAN MYRNA E Ot V57.89 02/24/2015 SASHA ROLDAN MYRNA E Ot 238.71 ESSENTIAL THROMBOCYTHEMIA 02/24/2015 SASHA ROLDAN MYRNA E Ot 272.4 HYPERLIPIDEMIA NEC/NOS 02/24/2015 SASHA ROLDAN MYRNA E Ot 276.1 HYPOSMOLALITY 02/24/2015 SASHA ROLDAN MYRNA E Ot 285.9 ANEMIA NOS 02/24/2015 SASHA ROLDAN MYRNA E Ot 294.9 UNSPEC 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 02/24/2015 SASHA ROLDAN MYRNA E Ot 300.00 ANXIETY STATE NOS 02/24/2015 SASHA ROLDAN MYRNA E Ot 401.9 HYPERTENSION NOS 02/24/2015 SASHA ROLDAN MYRNA E Ot 414.01 CORONARY ATHEROSCLEROSIS OF [place] CORON 02/24/2015 SASHA ROLDAN MYRNA E Ot 427.31 ATRIAL FIBRILLATION 02/24/2015 SASHA ROLDAN MYRNA E Ot 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 ARTERY OCCLUSION W O CEREBRAL IN 02/24/2015 JENNA BAEZ MDIC E Ot 433.30 MULT BILTRAL ARTERY OCCLUSION WO CEREBRA 02/24/2015 SASHA ROLDAN MYRNA E Ot 496 CHR AIRWAY OBSTRUCT NEC 02/24/2015 SASHA ROLDAN MYRNA E Ot 511.9 PLEURAL EFFUSION NOS 02/24/2015 SASHA ROLDAN MYRNA E Ot 530.81 ESOPHAGEAL REFLUX 02/24/2015 SASHA ROLDAN MYRNA E Ot 682.2 CELLULITIS OF TRUNK 02/24/2015 SASHA ROLDAN, MYRNA E Ot 715.31 LOC OSTEOARTH NOS-SHLDER 02/24/2015 MYRNA BAEZ MD E Ot 715.35 LOC OSTEOARTH NOS-PELVIS 02/24/2015 MYRNA BAEZ MD E Ot 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 02/24/2015 MYRNA BAEZ MD E Ot 733.00 OSTEOPOROSIS NOS 02/24/2015 SASHA ROLDAN MYRNA E Ot 786.09 RESPIRATORY ABNORM NEC 02/24/2015 SASHA ROLDAN MYRNA E Ot 788.43 NOCTURIA 02/24/2015 SASHA ROLDAN MYRNA E Ot 998.59 OTH POSTOPER INFECTION 02/24/2015 SASHA ROLDAN MYRNA E Ot V15.82 HISTORY OF TOBACCO USE 02/24/2015 MYRNA BAEZ MD Ot V45.81 AORTOCORONARY BYPASS 02/24/2015 MYRNA BAEZ MD Ot V46.2 SUPPLEMENTAL OXYGEN 02/24/2015 SASHA ROLDAN MYRNA E Ot V57.89 REHABILITATION PROC NEC 02/25/2015 JUAREZ DAWSON MD Ot 599.0 URIN TRACT INFECTION NOS 02/25/2015 JUAREZ DAWSON MD Ot 920 CONTUSION FACE/SCALP/NCK 02/25/2015 JUAREZ DAWSON MD Ot E000.8 OTHER EXTERNAL CAUSE STATUS 02/25/2015 JUAREZ DAWSON MD Ot E001.0 ACTIVITIES INVOLVING WALKING, MARCHING A 02/25/2015 JUAREZ DAWSON MD Ot E849.7 ACCID IN RESIDENT INSTIT 02/25/2015 JUAREZ DAWSON MD Ot E888.9 FALL NOS 02/27/2015 Ot 388.30 02/27/2015 Ot 780.4 02/27/2015 Ot 796.2 02/27/2015 Ot 799.51 02/27/2015 CAROLINE MENDOZA MD Ot 338.29 02/27/2015 CAROLINE MENDOZA MD Ot 722.6 02/27/2015 CAROLINE MENDOZA MD Ot 724.2 02/27/2015 CAROLINE MENDOZA MD Ot 724.4 02/27/2015 MAX DHILLON Ot 401.1 02/27/2015 MAX DHILLON COLLECTION SUPPORT SPECIALIST Ot 424.1 02/27/2015 MAX DHILLON COLLECTION SUPPORT SPECIALIST Ot 785.2 02/27/2015 MAX DHILLON COLLECTION SUPPORT SPECIALIST Ot 786.05 02/27/2015 MARY VILLALOBOSANDRE Ot 715.91 02/27/2015 MARY VILLALOBOSANDRE Ot 727.61 02/27/2015 DIANNA MACHADO MD Ot [...] 02/28/2015 SHANIQUE VEGA MD Ot 041.3 02/28/2015 SHANIQUE VEGA MD Ot 298.9 02/28/2015 GARY ROLDAN, SHANIQUE F [...] ELIZABETH ROLDAN, SHARIF N Ot 441.4 03/11/2015 ELIZBAETH ROLDAN, SHARIF N Ot 442.9 03/11/2015 ELIZABETH [...] ROLDAN, SHARIF N Ot 920 03/12/2015 ELIZABETH RLODAN, SHARIF N Ot E849.7 03/12/2015 ELIZABETH ROLDAN, [...] SHARIF N Ot V13.02 03/13/2015 ELIZABETH ROLDAN, HSARIF N Ot V45.81 03/14/2015 ELIZABETH ROLDAN, SHARIF [...] SHARIF N Ot 305.1 03/14/2015 ELIZABETH ROLDAN, SHARFI N Ot 311 03/14/2015 ELIZABETH ROLDAN, SHARIF [...] ELIZABETH ROLDAN, SHARIF N Ot E849.7 03/14/2015 ELIAZBETH ROLDAN, SHARIF N Ot E885.9 03/14/2015 ELIZABETH [...] ELIZABETH ROLDAN, SHARIF N Ot 440.20 03/15/2015 SHARIF JOHNSON MD Ot 441.4 03/15/2015 SHARIF JOHNSON MD Ot 442.9 03/15/2015 SHARIF JOHNSON MD Ot 491.20 03/15/2015 SHARIF JOHNSON MD Ot 715.90 03/15/2015 SHARIF JOHNSON MD Ot 722.6 03/15/2015 SHARIF JOHNSON MD Ot 780.1 03/15/2015 SHARIF JOHNSON MD Ot 799.02 03/15/2015 SHARIF JOHNSON MD Ot 920 03/15/2015 SHARIF JOHNSON MD Ot E849.7 03/15/2015 SHARIF JOHNSON MD Ot E885.9 03/15/2015 SHARIF JOHNSON MD Ot V13.02 03/15/2015 SHARIF JOHNSON MD Ot V45.81 03/15/2015 SHARIF JOHNSON MD Ot 041.3 KLEBSIELLA PNEUMONIAE 03/15/2015 SHARIF JOHNSON MD Ot 250.00 DIAB KENDAL WO COMPL, TYPE II OR UNSPEC TY 03/15/2015 SHARIF JOHNSON MD Ot 272.0 PURE HYPERCHOLESTEROLEM 03/15/2015 SHARIF JOHNSON MD Ot 272.4 HYPERLIPIDEMIA NEC/NOS 03/15/2015 SHARIF JOHNSON MD Ot 275.2 DIS MAGNESIUM METABOLISM 03/15/2015 SHARIF JOHNSON MD Ot 276.1 HYPOSMOLALITY 03/15/2015 SHARIF JOHNSON MD Ot 276.8 HYPOPOTASSEMIA 03/15/2015 SHARIF JOHNSON MD Ot 285.9 ANEMIA NOS 03/15/2015 SHARIF JOHNSON MD Ot 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 03/15/2015 SHARIF JOHNSON MD Ot 305.1 TOBACCO USE DISORDER 03/15/2015 SHARIF JOHNSON MD Ot 311 DEPRESSIVE DISORDER NEC 03/15/2015 SHARIF JOHNSON MD Ot 401.9 HYPERTENSION NOS 03/15/2015 SHARIF JOHNSON MD Ot 414.00 CORON ATHEROSCLER NOS TYPE VESSEL, NATIV 03/15/2015 SHARIF JOHNSON MD Ot 428.0 CONGESTIVE HEART FAILURE NOS 03/15/2015 SHARIF JOHNSON MD Ot 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 03/15/2015 SHARIF JOHNSON MD Ot 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 ARTERY OCCLUSION W O CEREBRAL IN 03/15/2015 SHARIF JOHNSON MD Ot 433.30 MULT BILTRAL ARTERY OCCLUSION WO CEREBRA 03/15/2015 SHARIF JOHNSON MD Ot 440.1 RENAL ARTERY ATHEROSCLER 03/15/2015 SHARIF JOHNSON MD Ot 440.20 ATHEROSCLEROSIS [place] ARTERIES EXTREMIT 03/15/2015 SHARIF JOHNSON MD Ot 441.4 ABDOM AORTIC ANEURYSM 03/15/2015 SHARIF JOHNSON MD Ot 442.9 03/15/2015 SHARIF JOHNSON MD Ot 491.20 03/15/2015 SHARIF JOHNSON MD Ot 491.21 OBSTR CHRONIC BRONCHITIS, W (ACUTE) EXAC 03/15/2015 SHARIF JOHNSON MD Ot 596.54 NEUROGENIC BLADDER, NOT OTHERWISE SPECIF 03/15/2015 SHARIF JOHNSON MD Ot 599.0 URIN TRACT INFECTION NOS 03/15/2015 SHARIF JOHNSON MD Ot 715.90 03/15/2015 SHARIF JOHNSON MD Ot 722.6 03/15/2015 SHARIF JOHNSON MD Ot 780.1 HALLUCINATIONS 03/15/2015 SHARIF JOHNSON MD Ot 788.20 RETENTION OF URINE NOS 03/15/2015 SHARIF JOHNSON MD Ot 799.02 HYPOXEMIA 03/15/2015 SHARIF JOHNSON MD Ot 920 CONTUSION FACE/SCALP/NCK 03/15/2015 SHARIF JOHNSON MD Ot E849.7 ACCID IN RESIDENT INSTIT 03/15/2015 SHARIF JOHNSON MD Ot E885.9 FALL FROM SLIPPING, TRIPPING, OR STUMBLI 03/15/2015 SHARIF JOHNSON MD Ot V13.02 03/15/2015 SHARIF JOHNSON MD Ot V45.81 AORTOCORONARY BYPASS 12/07/2015 Ot 388.30 12/07/2015 Ot 780.4 12/07/2015 Ot 796.2 12/07/2015 Ot 799.51 12/07/2015 REJI ROLDAN, CAROLINE Magaña Ot 338.29 12/07/2015 CAROLINE MENDOZA MD Ot 722.6 12/07/2015 CAROLINE MENDOZA MD Ot 724.2 12/07/2015 CAROLINE MENDOZA MD Ot 724.4 12/07/2015 MAX DHILLON COLLECTION SUPPORT SPECIALIST Ot 401.1 12/07/2015 MAX DHILLON COLLECTION SUPPORT SPECIALIST Ot 424.1 12/07/2015 MAX DHILLON COLLECTION SUPPORT SPECIALIST Ot 785.2 12/07/2015 MAX DHILLON COLLECTION SUPPORT SPECIALIST Ot 786.05 12/07/2015 ANDRE HERNANDEZ DO Ot 715.91 12/07/2015 ANDRE HERNANDEZ DO Ot 727.61 12/07/2015 JEANNETTE ROLDAN, DIANNA Adhikari Ot 278.00 12/07/2015 DIANNA MACHADO MD Ot [...] 12/07/2015 DIANNA MACHADO MD Ot V85.33 12/07/2015 SHANIQUE VEGA MD Ot 791.9 12/07/2015 CHARLES ROLDAN, TARA Arellano Ot M16.11 UNILATERAL PRIMARY OSTEOARTHRITIS, RIGHT 05/16/2016 PRUDENCE SHAW MD Ot E11.9 TYPE 2 DIABETES MELLITUS WITHOUT COMPLIC 05/16/2016 PRUDENCE SHAW MD Ot 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 05/16/2016 PRUDENCE SHAW MD Ot I10 ESSENTIAL (PRIMARY) HYPERTENSION 05/16/2016 PRUDENCE SHAW MD Ot I25.10 ATHSCL HEART DISEASE OF [place] CORONARY 05/16/2016 PRUDENCE SHAW MD Ot I71.4 [...] R32 UNSPECIFIED URINARY INCONTINENCE 11/22/2016 LUL NORWOOD MD Ot Z01.818 ENCOUNTER FOR OTHER PREPROCEDURAL EXAMIN 11/22/2016 LUL NORWOOD MD, Ot 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 (ISD) 11/22/2016 LUL NORWOOD MD Ot R32 UNSPECIFIED URINARY INCONTINENCE 11/22/2016 LUL NORWOOD MD Ot Z01.818 ENCOUNTER FOR OTHER PREPROCEDURAL EXAMIN 11/28/2016 LUL NORWOOD MD, Ot 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 (ISD) 11/28/2016 LUL NORWOOD MD Ot R32 UNSPECIFIED URINARY INCONTINENCE 11/28/2016 LUL NORWOOD MD Ot Z01.818 ENCOUNTER FOR OTHER PREPROCEDURAL EXAMIN 11/28/2016 LUL NORWOOD MD Ot E11.9 TYPE 2 DIABETES MELLITUS WITHOUT COMPLIC 11/28/2016 LUL NORWOOD MD Ot N32.81 OVERACTIVE BLADDER 11/28/2016 LUL NORWOOD MD, Ot 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 (ISD) 11/28/2016 LUL NORWOOD MD, Ot 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 11/28/2016 LUL NORWOOD MD Ot Z79.84 CREDIT CORRESPONDENCE CLERK (CURRENT) USE OF ORAL HYPOGLYC 11/29/2016 LUL NORWOOD MD Ot E11.9 TYPE 2 DIABETES MELLITUS WITHOUT COMPLIC 11/29/2016 CUCO MD, LUL A Ot N32.81 OVERACTIVE BLADDER 11/29/2016 LUL NORWOOD MD Ot 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 (ISD) 11/29/2016 LUL NORWOOD MD Ot 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 11/29/2016 LUL NORWOOD MD Ot Z79.84 CREDIT CORRESPONDENCE CLERK (CURRENT) USE OF ORAL HYPOGLYC 12/03/2016 LUL NORWOOD MD Ot E11.9 TYPE 2 DIABETES MELLITUS WITHOUT COMPLIC 12/03/2016 LUL NORWOOD MD Ot N32.81 OVERACTIVE BLADDER 12/03/2016 LUL NORWOOD MD Ot 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 (ISD) 12/03/2016 LUL NORWOOD MD, Ot 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 12/03/2016 LUL NORWOOD MD Ot Z79.84 FPC (CURRENT) USE OF ORAL HYPOGLYC 02/06/2017 LUL NORWOOD MD Ot N32.81 OVERACTIVE BLADDER 02/06/2017 LUL NORWOOD MD Ot 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 (ISD) 02/06/2017 LUL NORWOOD MD Ot 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 02/06/2017 LUL NORWOOD MD Ot Z01.818 ENCOUNTER FOR OTHER PREPROCEDURAL EXAMIN 02/07/2017 LUL NORWOOD MD Ot N32.81 OVERACTIVE BLADDER 02/07/2017 LUL NORWOOD MD Ot 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 (ISD) 02/07/2017 LUL NORWOOD MD Ot 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 02/07/2017 LUL NORWOOD MD Ot Z01.818 ENCOUNTER FOR OTHER PREPROCEDURAL EXAMIN 02/12/2017 LUL NORWOOD MD Ot N32.81 OVERACTIVE BLADDER 02/12/2017 LUL NORWOOD MD Ot 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 (ISD) 02/12/2017 LUL NORWOOD MD Ot 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 02/13/2017 LUL NORWOOD MD Ot N32.81 OVERACTIVE BLADDER 02/13/2017 LUL NORWOOD MD Ot 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 (ISD) 02/13/2017 LUL NORWOOD MD Ot 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 02/18/2017 LUL NORWOOD MD Ot N32.81 OVERACTIVE BLADDER 02/18/2017 LUL NORWOOD MD Ot 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 (ISD) 02/18/2017 LUL NORWOOD MD Ot 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 10/08/2017 BISHNU ROLDAN FACC, ALI FACP CCDS Ot E78.5 HYPERLIPIDEMIA, UNSPECIFIED 10/08/2017 BISHNU ROLDAN FACC, ALI FACP CCDS Ot I10 ESSENTIAL (PRIMARY) HYPERTENSION 10/08/2017 BISHNU ROLDAN FACC, ALI FACP CCDS Ot I25.10 ATHSCL HEART DISEASE OF [place] CORONARY 10/08/2017 BISHNU ROLDAN FACC, ALI FACP CCDS Ot I48.0 PAROXYSMAL ATRIAL FIBRILLATION 10/08/2017 BISHNU HDEZC, ALI FACP CCDS Ot I65.29 OCCLUSION AND STENOSIS OF UNSPECIFIED CA 10/08/2017 BISHNU ROLDAN FACC, ALI FACP CCDS Ot R06.02 SHORTNESS OF BREATH 10/08/2017 BISHNU ROLDAN FACC, ALI FACP CCDS Ot E78.5 HYPERLIPIDEMIA, UNSPECIFIED 10/08/2017 BISHNU ROLDAN FACC, ALI FACP CCDS Ot I10 ESSENTIAL (PRIMARY) HYPERTENSION 10/08/2017 BISHNU ROLDAN FACC, ALI FACP CCDS Ot I25.10 ATHSCL HEART DISEASE OF [place] CORONARY 10/08/2017 BISHNU HDEZC, ALI FACP CCDS Ot I48.0 PAROXYSMAL ATRIAL FIBRILLATION 10/08/2017 BISHNU ROLDAN FACC, ALI FACP CCDS Ot I65.29 OCCLUSION AND STENOSIS OF UNSPECIFIED CA 10/15/2017 BISHNU ROLDAN FACC, ALI FACP CCDS Ot I11.0 HYPERTENSIVE HEART DISEASE WITH HEART FA 10/15/2017 BISHNU ROLDAN FACC, ALI FACP CCDS Ot I25.10 ATHSCL HEART DISEASE OF [place] CORONARY 10/15/2017 BISHNU ROLDAN FACC, ALI FACP CCDS Ot I48.0 PAROXYSMAL ATRIAL FIBRILLATION 10/15/2017 BISHNU ROLADN FACC, ALI FACP CCDS Ot I48.91 UNSPECIFIED ATRIAL FIBRILLATION 10/15/2017 BISHNU ROLDAN FACC, ALI FACP CCDS [...] MD, FACC FACP CCDS Ot Z79.899 OTHER CREDIT CORRESPONDENCE CLERK (CURRENT) DRUG THERAPY 10/15/2017 CHELLE GOETZ MD, FACC FACP CCDS Ot Z87.891 PERSONAL HISTORY OF NICOTINE DEPENDENCE 10/15/2017 CHELLE GOETZ MD, FACC FACP CCDS Ot Z88.1 ALLERGY STATUS TO OTHER ANTIBIOTIC AGENT 10/15/2017 CHELLE GOETZ MD, FACC FACP CCDS Ot Z88.2 ALLERGY STATUS TO SULFONAMIDES STATUS 10/15/2017 CHELLE GOETZ MD, FACC FACP CCDS Ot Z88.8 ALLERGY STATUS TO [facility] DRUG/MEDS/BIOL SUB 10/15/2017 CHELLE GOETZ MD, FACC FACP CCDS Ot Z91.19 PATIENT'S NONCOMPLIANCE W OT MEDICAL TR 10/15/2017 CHELLE GOETZ MD, FACC FACP CCDS Ot 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 BYPASS GRAFT 10/15/2017 CHELLE GOETZ MD, FACC FACP CCDS Ot Z96.641 PRESENCE OF RIGHT ARTIFICIAL HIP JOINT 10/26/2017 CHELLE GOETZ MD, FACC FACP CCDS Ot E78.4 OTHER HYPERLIPIDEMIA 10/26/2017 CHELLE GOETZ MD, FACC FACP CCDS Ot I10 ESSENTIAL (PRIMARY) HYPERTENSION 10/26/2017 CHELLE GOETZ MD, FACC FACP CCDS Ot I25.10 ATHSCL HEART DISEASE OF [place] CORONARY 10/26/2017 CHELLE GOETZ MD, FACC FACP CCDS Ot I48.0 PAROXYSMAL ATRIAL FIBRILLATION 10/26/2017 BISHNU ROLDAN FACC, ALI FACP CCDS Ot I71.4 ABDOMINAL AORTIC ANEURYSM, WITHOUT RUPTU 10/29/2017 BISHNU ROLDAN FACC, ALI FACP CCDS Ot E78.4 OTHER HYPERLIPIDEMIA 10/29/2017 BISHNU ROLDAN FACC, ALI FACP CCDS Ot I10 ESSENTIAL (PRIMARY) HYPERTENSION 10/29/2017 BISHNU ROLDAN FACC, ALI FACP CCDS Ot I25.10 ATHSCL HEART DISEASE OF [place] CORONARY 10/29/2017 BISHNU ROLDAN FACC, ALI FACP CCDS Ot I48.0 PAROXYSMAL ATRIAL FIBRILLATION 10/29/2017 BISHNU ROLDAN FACC, ALI FACP CCDS Ot I71.4 ABDOMINAL AORTIC ANEURYSM, WITHOUT RUPTU 10/29/2017 BISHNU ROLDAN FACC, ALI FACP CCDS Ot E78.5 HYPERLIPIDEMIA, UNSPECIFIED 10/29/2017 BISHNU ROLDAN FACC, ALI FACP CCDS Ot I10 ESSENTIAL (PRIMARY) HYPERTENSION 10/29/2017 BISHNU ROLDAN FACC, ALI FACP CCDS Ot I25.10 ATHSCL HEART DISEASE OF [place] CORONARY 10/29/2017 BISHNU ROLDAN FACC, ALI FACP CCDS Ot I48.0 PAROXYSMAL ATRIAL FIBRILLATION 10/29/2017 BISHNU ROLDAN FACC, ALI FACP CCDS Ot I65.29 OCCLUSION AND STENOSIS OF UNSPECIFIED CA 10/29/2017 BISHNU ROLDAN FACC, ALI FACP CCDS Ot R06.02 SHORTNESS OF BREATH 10/29/2017 BISHNU HDEZC, ALI FACP CCDS Ot E78.5 HYPERLIPIDEMIA, UNSPECIFIED 10/29/2017 BISHNU ROLDAN FACC, ALI FACP CCDS Ot I10 ESSENTIAL (PRIMARY) HYPERTENSION 10/29/2017 BISHNU ROLDAN FACC, ALI FACP CCDS Ot I25.10 ATHSCL HEART DISEASE OF [place] CORONARY 10/29/2017 BISHNU ROLDAN FACC, ALI FACP CCDS Ot I48.0 PAROXYSMAL ATRIAL FIBRILLATION 10/29/2017 BISHNU ROLDAN FACC, ALI FACP CCDS Ot I65.29 OCCLUSION AND STENOSIS OF UNSPECIFIED CA 11/05/2017 BISHNU ROLDAN FACC, ALI FACP CCDS Ot E78.4 OTHER HYPERLIPIDEMIA 11/05/2017 BISHNU ROLDAN FACC, ALI FACP CCDS Ot I10 ESSENTIAL (PRIMARY) HYPERTENSION 11/05/2017 BISHNU MD FACC, ALI FACP CCDS Ot I25.10 ATHSCL HEART DISEASE OF [place] CORONARY 11/05/2017 BISHNU ROLDAN FACC, ALI FACP CCDS Ot I48.0 PAROXYSMAL ATRIAL FIBRILLATION 11/05/2017 BISHNU ROLDAN FACC, ALI FACP CCDS Ot I71.4 ABDOMINAL AORTIC ANEURYSM, WITHOUT RUPTU 11/07/2017 BISHNU ROLDAN FACC, ALI FACP CCDS Ot E78.4 OTHER HYPERLIPIDEMIA 11/07/2017 BISHNU ROLDAN FACC, ALI FACP CCDS Ot I10 ESSENTIAL (PRIMARY) HYPERTENSION 11/07/2017 BISHNU ROLDAN FACC, ALI FACP CCDS Ot I25.10 ATHSCL HEART DISEASE OF [place] CORONARY 11/07/2017 BISHNU HDEZC, ALI FACP CCDS Ot I48.0 PAROXYSMAL ATRIAL FIBRILLATION 11/07/2017 BISHNU HDEZC, ALI FACP CCDS Ot I71.4 ABDOMINAL AORTIC ANEURYSM, WITHOUT RUPTU 11/08/2017 BISHNU ROLDAN FACC, ALI FACP CCDS Ot E78.5 HYPERLIPIDEMIA, UNSPECIFIED 11/08/2017 BISHNU HDEZC, ALI FACP CCDS Ot I10 ESSENTIAL (PRIMARY) HYPERTENSION 11/08/2017 BISHNU ROLDAN FACC, ALI FACP CCDS Ot I25.10 ATHSCL HEART DISEASE OF [place] CORONARY 11/08/2017 BISHNU HDEZC, ALI FACP CCDS Ot I48.0 PAROXYSMAL ATRIAL FIBRILLATION 11/08/2017 BISHNU HDEZC, ALI FACP CCDS Ot I65.29 OCCLUSION AND STENOSIS OF UNSPECIFIED CA 11/08/2017 BISHNU ROLDAN FACC, ALI FACP CCDS Ot R06.02 SHORTNESS OF BREATH 11/08/2017 BISHNU HDEZC, ALI FACP CCDS Ot E78.5 HYPERLIPIDEMIA, UNSPECIFIED 11/08/2017 BISHNU HDEZC, ALI FACP CCDS Ot I10 ESSENTIAL (PRIMARY) HYPERTENSION 11/08/2017 BISHNU HDEZC, ALI FACP CCDS Ot I25.10 ATHSCL HEART DISEASE OF [place] CORONARY 11/08/2017 BISHNU ROLDAN FACC, ALI FACP CCDS Ot I48.0 PAROXYSMAL ATRIAL FIBRILLATION 11/08/2017 BISHNU ROLDAN FACC, ALI FACP CCDS Ot I65.29 OCCLUSION AND STENOSIS OF UNSPECIFIED CA 11/15/2017 BISHNU HDEZC, ALI FACP CCDS Ot E78.4 OTHER HYPERLIPIDEMIA 11/15/2017 BISHNU ROLDAN [facility], ALI FACP CCDS Ot I10 ESSENTIAL (PRIMARY) HYPERTENSION 11/15/2017 BISHNU ROLDAN [facility], CHELLE FACP CCDS Ot I25.10 ATHSCL HEART DISEASE OF [place] CORONARY 11/15/2017 BISHNU ROLDAN FACC, ALI FACP CCDS Ot I48.0 PAROXYSMAL ATRIAL FIBRILLATION 11/15/2017 BISHNU ROLDAN FACC, CHELLE FACP CCDS Ot I71.4 ABDOMINAL AORTIC ANEURYSM, WITHOUT RUPTU 11/19/2017 LUL NORWOOD MD Ot R32 UNSPECIFIED URINARY INCONTINENCE 11/19/2017 LUL NORWOOD MD Ot R33.9 RETENTION OF URINE, UNSPECIFIED 11/19/2017 LUL NORWOOD MD Ot Z01.818 ENCOUNTER FOR OTHER PREPROCEDURAL EXAMIN 11/20/2017 LUL NORWOOD MD Ot R32 UNSPECIFIED [...] RETENTION OF URINE, UNSPECIFIED 11/25/2017 LUL NORWOOD MD, Ot Z01.818 ENCOUNTER FOR OTHER PREPROCEDURAL EXAMIN 11/25/2017 LUL NORWOOD MD Ot R32 UNSPECIFIED URINARY INCONTINENCE 11/25/2017 LUL NORWOOD MD, Ot R33.9 RETENTION OF URINE, UNSPECIFIED 11/25/2017 LUL NORWOOD MD, Ot Z01.818 ENCOUNTER FOR OTHER PREPROCEDURAL EXAMIN 11/26/2017 SATHISH ABAD COLLECTION SUPPORT SPECIALIST Ot 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 11/26/2017 SATHISH ABAD L COLLECTION SUPPORT SPECIALIST Ot 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 11/26/2017 SATHISH ABAD COLLECTION SUPPORT SPECIALIST Ot I71.4 ABDOMINAL AORTIC ANEURYSM, WITHOUT RUPTU 11/26/2017 SATHISH ABAD L COLLECTION SUPPORT SPECIALIST Ot K42.9 UMBILICAL HERNIA WITHOUT OBSTRUCTION OR 11/26/2017 SATHISH ABAD L COLLECTION SUPPORT SPECIALIST Ot K76.89 OTHER SPECIFIED DISEASES OF LIVER 11/26/2017 SATHISH ABAD L COLLECTION SUPPORT SPECIALIST Ot N28.1 CYST OF KIDNEY, ACQUIRED 11/26/2017 LUL NORWOOD MD Ot E11.9 TYPE 2 DIABETES MELLITUS WITHOUT COMPLIC 11/26/2017 LUL NORWOOD MD Ot E66.9 OBESITY, UNSPECIFIED 11/26/2017 LUL NORWOOD MD, Ot E78.5 HYPERLIPIDEMIA, UNSPECIFIED 11/26/2017 LUL NORWOOD MD, Ot F32.9 MAJOR DEPRESSIVE DISORDER, SINGLE EPISOD 11/26/2017 LUL NORWOOD MD Ot G89.18 OTHER ACUTE POSTPROCEDURAL PAIN 11/26/2017 LUL NORWOOD MD Ot I10 ESSENTIAL (PRIMARY) HYPERTENSION 11/26/2017 LUL NORWOOD MD, Ot I25.10 ATHSCL HEART DISEASE OF [place] CORONARY 11/26/2017 LUL NORWOOD MD, Ot J44.9 [...] ADULT 11/26/2017 LUL NORWOOD MD, Ot Z79.01 CREDIT CORRESPONDENCE CLERK (CURRENT) USE OF ANTICOAGULANT 11/26/2017 LUL NORWOOD MD, Ot Z79.82 FPC (CURRENT) USE OF ASPIRIN 11/26/2017 LUL NORWOOD MD, Ot Z79.899 OTHER FPC (CURRENT) DRUG THERAPY 11/26/2017 LUL NORWOOD MD, Ot Z87.891 PERSONAL HISTORY OF NICOTINE DEPENDENCE 11/27/2017 PRUDENCE SHAW MD, Ot E03.9 HYPOTHYROIDISM, UNSPECIFIED 11/27/2017 PRUDENCE SHAW MD, Ot E11.9 TYPE 2 DIABETES MELLITUS WITHOUT COMPLIC 11/27/2017 PRUDENCE SHAW MD, Ot E78.00 PURE HYPERCHOLESTEROLEMIA, UNSPECIFIED 11/27/2017 PRUDENCE SHAW MD, Ot E86.0 DEHYDRATION 11/27/2017 PRUDENCE SHAW MD, Ot F32.9 MAJOR DEPRESSIVE DISORDER, SINGLE EPISOD 11/27/2017 PRUDENCE SHAW MD, Ot F41.9 ANXIETY DISORDER, UNSPECIFIED 11/27/2017 PRUDENCE SHAW MD, Ot G89.18 OTHER ACUTE POSTPROCEDURAL PAIN 11/27/2017 PRUDENCE SHAW MD, Ot I10 ESSENTIAL (PRIMARY) HYPERTENSION 11/27/2017 PRUDENCE SHAW MD, Ot I11.0 HYPERTENSIVE HEART DISEASE WITH HEART FA 11/27/2017 PRUDENCE SHAW MD, Ot I25.10 ATHSCL HEART DISEASE OF [place] CORONARY 11/27/2017 PRUDENCE SHAW MD, Ot I48.0 [...] D/T CYSTOSTOMY CATHETER, INITI 11/27/2017 PRUDENCE SHAW MD Ot Z79.01 FPC (CURRENT) USE OF ANTICOAGULANT 11/27/2017 PRUDENCE SHAW MD Ot Z79.82 FPC (CURRENT) USE OF ASPIRIN 11/27/2017 PRUDENCE SHAW MD Ot Z79.84 FPC (CURRENT) USE OF ORAL HYPOGLYC 11/27/2017 PRUDENCE SHAW MD, Ot Z79.899 OTHER FPC (CURRENT) DRUG THERAPY 11/27/2017 PRUDENCE SHAW MD, Ot Z87.891 PERSONAL HISTORY OF NICOTINE DEPENDENCE 11/27/2017 PRUDENCE SHAW MD Ot 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 BYPASS GRAFT 11/27/2017 PRUDENCE SHAW MD Ot Z96.641 PRESENCE OF RIGHT ARTIFICIAL HIP JOINT 12/03/2017 SATHISH ABADP Ot 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 12/03/2017 SATHISH ABADP Ot 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 12/03/2017 SATHISH ABADP Ot I71.4 ABDOMINAL AORTIC ANEURYSM, WITHOUT RUPTU 12/03/2017 SATHISH ABADP Ot I77.2 RUPTURE OF ARTERY 12/03/2017 SATHISH ABADP Ot J43.9 EMPHYSEMA, UNSPECIFIED 12/03/2017 SATHISH ABAD COLLECTION SUPPORT SPECIALIST Ot 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10 ATHSCL HEART DISEASE OF [place] CORONARY 2017 JESSICA JENKINS MD Ot J44.9 CHRONIC OBSTRUCTIVE PULMONARY DISEASE, U 2017 JESSICA JENKINS MD Ot N39.0 URINARY TRACT INFECTION, SITE NOT SPECIF 2017 JESSICA JENKINS MD Ot R55 SYNCOPE AND COLLAPSE 2017 JESSICA JENKINS MD Ot T83.511A I/I REACT D/T INDWELLING URETHRAL CATHET 2017 JESSICA JENKINS MD Ot W01.0XXA FALL SAME LEV FROM SLIP/TRIP W/O STRIKE 2017 JESSICA JENKINS MD Ot Z79.01 CREDIT CORRESPONDENCE CLERK (CURRENT) USE OF ANTICOAGULANT 2017 JESSICA JENKINS MD Ot Z79.02 CREDIT CORRESPONDENCE CLERK (CURRENT) USE OF ANTITHROMBOTI 2017 GREGORY MD, JESSICA J Ot Z79.82 CREDIT CORRESPONDENCE CLERK (CURRENT) USE OF ASPIRIN 2017 JESSICA JENKINS MD Ot Z79.84 FPC (CURRENT) USE OF ORAL HYPOGLYC 2017 JESSICA [...] I10 ESSENTIAL (PRIMARY) HYPERTENSION 12/17/2017 JESSICA JENKINS MD Ot I25.10 ATHSCL HEART DISEASE OF [place] CORONARY 12/17/2017 JESSICA JENKINS MD Ot J44.9 CHRONIC OBSTRUCTIVE PULMONARY DISEASE, U 12/17/2017 JESSICA JENKINS MD Ot N39.0 URINARY TRACT INFECTION, SITE NOT SPECIF 12/17/2017 JESSICA JENKINS MD Ot R55 SYNCOPE AND COLLAPSE 12/17/2017 JESSICA JENKINS MD Ot T83.511A I/I REACT D/T INDWELLING URETHRAL CATHET 12/17/2017 JESSICA JENKINS MD Ot W01.0XXA FALL SAME LEV FROM SLIP/TRIP W/O STRIKE 12/17/2017 JESSICA JENKINS MD, Ot Z79.01 FPC (CURRENT) USE OF ANTICOAGULANT 12/17/2017 JESSICA JENKINS MD Ot Z79.02 CREDIT CORRESPONDENCE CLERK (CURRENT) USE OF ANTITHROMBOTI 12/17/2017 JESSICA JENKINS MD, Ot Z79.82 CREDIT CORRESPONDENCE CLERK (CURRENT) USE OF ASPIRIN 12/17/2017 JESSICA JENKINS MD, Ot Z79.84 CREDIT CORRESPONDENCE CLERK (CURRENT) USE OF ORAL HYPOGLYC 12/17/2017 JESSICA JENKINS MD, Ot Z80.0 FAMILY HISTORY OF MALIGNANT NEOPLASM OF 12/17/2017 JESSICA JENKINS MD, Ot Z80.1 FAMILY HISTORY OF MALIG NEOPLASM OF TRAC 12/17/2017 JESSICA JENKINS MD Ot Z82.49 FAMILY HX OF ISCHEM HEART DIS AND OTH DI 12/17/2017 JESSICA JENKINS MD Ot Z87.01 PERSONAL HISTORY [...] Z96.0 PRESENCE OF UROGENITAL IMPLANTS 12/23/2017 SATHISH ABADP Ot 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 12/23/2017 SATHISH ABAD COLLECTION SUPPORT SPECIALIST Ot 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 12/23/2017 SATHISH ABADP Ot I71.4 ABDOMINAL AORTIC ANEURYSM, WITHOUT RUPTU 12/23/2017 SATHISH ABADP Ot K42.9 UMBILICAL HERNIA WITHOUT OBSTRUCTION OR 12/23/2017 SATHISH ABAD COLLECTION SUPPORT SPECIALIST Ot K76.89 OTHER SPECIFIED DISEASES OF LIVER 12/23/2017 KEVONSATHISH HOUSE COLLECTION SUPPORT SPECIALIST Ot N28.1 CYST OF KIDNEY, ACQUIRED 12/24/2017 MARCIA LUI MD Ot 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 12/24/2017 MARCIA LUI MD Ot Z01.810 ENCOUNTER FOR PREPROCEDURAL CARDIOVASCUL 12/24/2017 MARCIA LUI MD Ot Z01.811 ENCOUNTER FOR PREPROCEDURAL RESPIRATORY 12/24/2017 MARCIA LUI MD Ot Z01.812 ENCOUNTER FOR PREPROCEDURAL LABORATORY E 12/24/2017 KEVONSATHISH HOUSE L COLLECTION SUPPORT SPECIALIST Ot 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 12/24/2017 KEVONLACY SATHISH L COLLECTION SUPPORT SPECIALIST Ot 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 OF [facility] 12/24/2017 [employer]SE COLLECTION SUPPORT SPECIALIST Ot I71.4 ABDOMINAL AORTIC ANEURYSM, WITHOUT RUPTU 12/24/2017 JENNIFFER SATHISH Bette COLLECTION SUPPORT SPECIALIST Ot I77.2 RUPTURE OF ARTERY 12/24/2017 KEVONLACY SATHISH L COLLECTION SUPPORT SPECIALIST Ot J43.9 EMPHYSEMA, UNSPECIFIED 12/24/2017 [employer] COLLECTION SUPPORT SPECIALIST Ot 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 01/07/2018 [employer] COLLECTION SUPPORT SPECIALIST Ot 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 01/07/2018 [employer]SE COLLECTION SUPPORT SPECIALIST Ot I70.201 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 01/07/2018 KEVONLACY SATHISH L COLLECTION SUPPORT SPECIALIST Ot I71.4 ABDOMINAL AORTIC ANEURYSM, WITHOUT RUPTU 01/07/2018 KEVONLACY SATHISH L COLLECTION SUPPORT SPECIALIST Ot K42.9 UMBILICAL HERNIA WITHOUT OBSTRUCTION OR 01/07/2018 [employer] COLLECTION SUPPORT SPECIALIST Ot K76.89 OTHER SPECIFIED DISEASES OF LIVER 01/07/2018 [employer] COLLECTION SUPPORT SPECIALIST Ot N28.1 CYST OF KIDNEY, ACQUIRED 01/08/2018 [employer] COLLECTION SUPPORT SPECIALIST Ot 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 01/08/2018 [employer] L COLLECTION SUPPORT SPECIALIST Ot 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 01/08/2018 [employer] L COLLECTION SUPPORT SPECIALIST Ot I71.4 ABDOMINAL AORTIC ANEURYSM, WITHOUT RUPTU 01/08/2018 SATHISH ABAD COLLECTION SUPPORT SPECIALIST Ot I77.2 RUPTURE OF ARTERY 01/08/2018 SATHISH ABAD COLLECTION SUPPORT SPECIALIST Ot J43.9 EMPHYSEMA, UNSPECIFIED 01/08/2018 SATHISH ABAD COLLECTION SUPPORT SPECIALIST Ot 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 01/16/2018 MARCIA LUI MD Ot 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 01/16/2018 MARCIA LUI MD F Ot Z01.810 ENCOUNTER FOR PREPROCEDURAL CARDIOVASCUL 01/16/2018 MARCIA LUI MD F Ot Z01.811 ENCOUNTER FOR PREPROCEDURAL RESPIRATORY 01/16/2018 MARCIA LUI MD F Ot Z01.812 ENCOUNTER [...] FACP CCDS Ot E78.4 OTHER HYPERLIPIDEMIA 01/28/2018 CHELLE GOETZ MD, FACC FACP CCDS Ot I11.0 HYPERTENSIVE HEART DISEASE WITH HEART FA 01/28/2018 CHELLE GOETZ MD, FACC FACP CCDS Ot I25.10 ATHSCL HEART DISEASE OF [place] CORONARY 01/28/2018 CHELLE GOETZ MD, FACC FACP CCDS Ot I48.0 PAROXYSMAL ATRIAL FIBRILLATION 01/28/2018 CHELLE GOETZ MD, FACC FACP CCDS Ot I48.92 UNSPECIFIED ATRIAL FLUTTER 01/28/2018 CHELLE GOETZ MD, FACC FACP CCDS Ot I50.33 ACUTE ON CHRONIC DIASTOLIC (CONGESTIVE) 01/28/2018 CHELLE GOETZ MD, FACC FACP CCDS Ot 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 01/28/2018 CHELLE GOETZ MD, FACCP CCDS Ot I70.1 ATHEROSCLEROSIS OF RENAL ARTERY 01/28/2018 CHELLE GOETZ MD, FACC FACP CCDS Ot I71.4 ABDOMINAL AORTIC ANEURYSM, WITHOUT RUPTU 01/28/2018 BISHNU ROLDAN FACC, ALI FACP CCDS Ot I73.9 PERIPHERAL VASCULAR DISEASE, UNSPECIFIED 01/28/2018 BISHNU ROLDAN FACC, CHELLE FACP CCDS Ot J44.9 CHRONIC OBSTRUCTIVE PULMONARY DISEASE, U 01/28/2018 BISHNU ROLDAN FACC, ALI FACP CCDS Ot Z79.899 OTHER [facility] (CURRENT) DRUG THERAPY 01/28/2018 BISHNU ROLDAN FACC, CHELLE FACP CCDS Ot Z87.891 PERSONAL HISTORY OF NICOTINE DEPENDENCE 01/28/2018 BISHNU ROLDAN FACC, CHELLE FACP CCDS Ot Z88.1 ALLERGY STATUS TO OTHER ANTIBIOTIC AGENT 01/28/2018 BISHNU ROLDAN FACC, CHELLE FACP CCDS Ot Z88.2 ALLERGY STATUS TO SULFONAMIDES STATUS 01/28/2018 BISHNU ROLDAN FACC, CHELLE FACP CCDS Ot Z88.8 ALLERGY STATUS TO [facility] DRUG/MEDS/BIOL SUB 01/28/2018 BISHNU ROLDAN FACC, CHELLE FACP CCDS Ot Z91.19 PATIENT'S NONCOMPLIANCE W OT MEDICAL TR 01/28/2018 BISHNU ROLDAN FACC, CHELLE FACP CCDS Ot 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 BYPASS GRAFT 01/28/2018 BISHNU ROLDAN FACC, CHELLE FACP CCDS Ot Z96.641 PRESENCE OF RIGHT ARTIFICIAL HIP JOINT 02/12/2018 MARCIA LUI MD F Ot 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 02/12/2018 MARCIA LUI MD F Ot Z01.810 ENCOUNTER FOR PREPROCEDURAL CARDIOVASCUL 02/12/2018 MARCIA LUI MD F Ot Z01.811 ENCOUNTER FOR PREPROCEDURAL RESPIRATORY 02/17/2018 SHANIQUE VEGA MD F Ot R82.90 UNSPECIFIED ABNORMAL FINDINGS IN URINE 03/07/2018 MARCIA LUI MD F Ot 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 03/07/2018 MARCIA LUI MD F Ot Z01.810 ENCOUNTER FOR PREPROCEDURAL CARDIOVASCUL 03/07/2018 MARCIA LUI MD F Ot Z01.811 ENCOUNTER FOR PREPROCEDURAL RESPIRATORY 03/11/2018 CHELLE GOETZ MD, FACC FACP CCDS Ot E78.5 HYPERLIPIDEMIA, UNSPECIFIED 03/11/2018 BISHNU ROLDAN FACC, ALI FACP CCDS Ot I25.10 ATHSCL HEART DISEASE OF [place] CORONARY 03/11/2018 BISHNU ROLDAN FACC, ALI FACP CCDS Ot I48.0 PAROXYSMAL ATRIAL FIBRILLATION 03/11/2018 BISHNU ROLDAN FACC, ALI FACP CCDS Ot I71.4 ABDOMINAL AORTIC ANEURYSM, WITHOUT RUPTU 03/11/2018 BISHNU ROLDAN FACC, ALI FACP CCDS Ot R06.02 SHORTNESS OF BREATH 03/11/2018 BISHNU ROLDAN FACC, ALI FACP CCDS Ot R53.1 WEAKNESS 03/13/2018 SHANIQUE VEGA MD Ot R82.90 UNSPECIFIED ABNORMAL FINDINGS IN URINE 03/20/2018 SHAINQUE VEGA MD Ot R82.90 UNSPECIFIED ABNORMAL FINDINGS [...] CCDS Ot I25.10 ATHSCL HEART DISEASE OF [place] CORONARY 03/25/2018 BISHNU ROLDAN FACC, CHELLE FACP CCDS Ot I48.0 PAROXYSMAL ATRIAL FIBRILLATION 03/25/2018 BISHNU ROLDAN FACC, CHELLE FACP CCDS Ot I71.4 ABDOMINAL AORTIC ANEURYSM, [...] CCDS Ot I25.10 ATHSCL HEART DISEASE OF [place] CORONARY 04/01/2018 BISHNU ROLDAN FACC, ALI FACP CCDS Ot I48.0 PAROXYSMAL ATRIAL FIBRILLATION 04/01/2018 BISHNU ROLDAN FACC, ALI FACP CCDS Ot I70.1 ATHEROSCLEROSIS OF RENAL ARTERY 04/01/2018 BISHNU ROLDAN FACC, ALI FACP CCDS Ot 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 [facility] 04/01/2018 BISHNU ROLDAN FACC, ALI FACP CCDS Ot I71.4 ABDOMINAL AORTIC ANEURYSM, WITHOUT RUPTU 04/01/2018 BISHNU ROLDAN FACC, ALI FACP CCDS Ot 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 04/01/2018 BISHNU ROLDAN FACC, ALI FACP CCDS Ot J44.9 CHRONIC OBSTRUCTIVE PULMONARY DISEASE, U 04/01/2018 BISHNU ROLDAN FACC, CHELLE FACP CCDS Ot Z79.01 CREDIT CORRESPONDENCE CLERK (CURRENT) USE OF ANTICOAGULANT 04/01/2018 BISHNU ROLDAN FACC, ALI FACP CCDS Ot Z79.02 CREDIT CORRESPONDENCE CLERK (CURRENT) USE OF ANTITHROMBOTI 04/01/2018 CHELLE GOETZ MD, FACC FACP CCDS Ot Z79.82 FPC (CURRENT) USE OF ASPIRIN 04/01/2018 BISHNU ROLDAN FACC, ALI FACP CCDS Ot Z79.899 OTHER FPC (CURRENT) DRUG THERAPY 04/01/2018 BISHNU ROLDAN FACC, ALI FACP CCDS Ot Z87.891 PERSONAL HISTORY OF NICOTINE DEPENDENCE 04/01/2018 BISHNU ROLDAN FACC, ALI FACP CCDS Ot 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 BYPASS GRAFT 04/02/2018 MARCIA LUI MD F Ot 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 04/02/2018 MARCIA LUI MD F Ot Z01.810 ENCOUNTER FOR PREPROCEDURAL CARDIOVASCUL 04/02/2018 MARCIA LUI MD F Ot Z01.811 ENCOUNTER FOR PREPROCEDURAL RESPIRATORY 04/09/2018 MARCIA LUI MD F Ot 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 04/09/2018 MARCIA LUI MD F Ot Z01.810 ENCOUNTER FOR PREPROCEDURAL CARDIOVASCUL 04/09/2018 MARCIA LUI MD F Ot Z01.811 ENCOUNTER FOR PREPROCEDURAL RESPIRATORY 04/11/2018 RAFIQ CAMPOVERDE COLLECTION SUPPORT SPECIALIST Ot I70.208 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 OF [facility] 04/11/2018 RAFIQ CAMPOVERDE COLLECTION SUPPORT SPECIALIST Ot I70.8 ATHEROSCLEROSIS OF OTHER ARTERIES 04/11/2018 RAFIQ CAMPOVERDE COLLECTION SUPPORT SPECIALIST Ot I71.4 ABDOMINAL AORTIC ANEURYSM, WITHOUT RUPTU 04/11/2018 RAFIQ CAMPOVERDE COLLECTION SUPPORT SPECIALIST Ot 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 04/11/2018 RAFIQ CAMPOVERDE COLLECTION SUPPORT SPECIALIST Ot K43.9 VENTRAL HERNIA WITHOUT OBSTRUCTION OR GA 04/11/2018 RAFIQ CAMPOVERDE COLLECTION SUPPORT SPECIALIST Ot N28.89 OTHER SPECIFIED DISORDERS OF KIDNEY AND 04/30/2018 RAFIQ CAMPOVERDE COLLECTION SUPPORT SPECIALIST Ot I70.208 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 04/30/2018 RAFIQ CAMPOVERDE COLLECTION SUPPORT SPECIALIST Ot I70.8 ATHEROSCLEROSIS OF OTHER ARTERIES 04/30/2018 RAFIQ CAMPOVERDE COLLECTION SUPPORT SPECIALIST Ot I71.4 ABDOMINAL AORTIC ANEURYSM, WITHOUT RUPTU 04/30/2018 RAFIQ CAMPOVERDE COLLECTION SUPPORT SPECIALIST Ot 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 04/30/2018 GILLES RAFIQ Magaña COLLECTION SUPPORT SPECIALIST Ot K43.9 VENTRAL HERNIA WITHOUT OBSTRUCTION OR GA 04/30/2018 RAFIQ CAMPOVERDE COLLECTION SUPPORT SPECIALIST Ot N28.89 OTHER SPECIFIED DISORDERS OF KIDNEY AND 05/05/2018 JUAREZ DAWSON MD Ot E11.9 TYPE 2 DIABETES MELLITUS WITHOUT COMPLIC 05/05/2018 JUAREZ DAWSON MD Ot E78.00 PURE HYPERCHOLESTEROLEMIA, UNSPECIFIED 05/05/2018 JUAREZ DAWSON MD Ot F32.9 MAJOR DEPRESSIVE DISORDER, SINGLE EPISOD 05/05/2018 JUAREZ DAWSON MD Ot F41.9 ANXIETY DISORDER, UNSPECIFIED 05/05/2018 JUAREZ DAWSON MD Ot I10 ESSENTIAL (PRIMARY) HYPERTENSION 05/05/2018 JUAREZ DAWSON MD Ot I25.10 ATHSCL HEART DISEASE OF [place] CORONARY 05/05/2018 JUAREZ DAWSON MD Ot I71.4 ABDOMINAL AORTIC ANEURYSM, WITHOUT RUPTU 05/05/2018 JUAREZ DAWOSN MD Ot M54.5 LOW BACK PAIN 05/05/2018 JUAREZ DAWSON MD Ot N39.0 URINARY TRACT INFECTION, SITE NOT SPECIF 05/05/2018 JUAREZ DAWSON MD, Ot S32.030A WEDGE COMPRESSION FRACTURE OF THIRD LUMB 05/05/2018 JUAREZ DAWSON MD, Ot X50.0XXA OVEREXERTION FROM STRENUOUS MOVEMENT OR 05/05/2018 JUAREZ DAWSON MD, Ot Z79.82 CREDIT CORRESPONDENCE CLERK (CURRENT) USE OF ASPIRIN 05/05/2018 JUAREZ DAWSON MD, Ot Z79.84 CREDIT CORRESPONDENCE CLERK (CURRENT) USE OF ORAL HYPOGLYC 05/05/2018 JUAREZ DAWSON MD, Ot Z87.891 PERSONAL HISTORY OF NICOTINE DEPENDENCE 05/05/2018 JUAREZ DAWSON MD, Ot Z88.2 ALLERGY STATUS TO SULFONAMIDES STATUS 05/05/2018 JUAREZ DAWSON MD, Ot Z88.6 ALLERGY STATUS TO ANALGESIC AGENT STATUS 05/05/2018 JUAREZ DAWSON MD Ot Z90.49 ACQUIRED ABSENCE OF OTHER SPECIFIED PART 05/05/2018 JUAREZ DAWSON MD, Ot Z90.710 ACQUIRED ABSENCE OF BOTH CERVIX AND UTER 05/05/2018 JUAREZ DAWSON MD, Ot Z90.89 ACQUIRED ABSENCE OF OTHER ORGANS 05/05/2018 JUAREZ DAWSON MD, Ot 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 BYPASS GRAFT 05/05/2018 JUAREZ DAWSON MD, Ot Z98.890 OTHER SPECIFIED POSTPROCEDURAL STATES 05/07/2018 JUAREZ DAWSON MD Ot E11.9 TYPE 2 DIABETES MELLITUS WITHOUT COMPLIC 05/07/2018 JUAREZ DAWSON MD Ot E78.00 PURE HYPERCHOLESTEROLEMIA, UNSPECIFIED 05/07/2018 JUAREZ DAWSON MD, Ot F32.9 MAJOR DEPRESSIVE DISORDER, SINGLE EPISOD 05/07/2018 JUAREZ DAWSON MD, Ot F41.9 ANXIETY DISORDER, UNSPECIFIED 05/07/2018 JUAREZ DAWSON MD, Ot I10 ESSENTIAL (PRIMARY) HYPERTENSION 05/07/2018 JUAREZ DAWSON MD Ot I25.10 ATHSCL HEART DISEASE OF [place] CORONARY 05/07/2018 JUAREZ DAWSON MD Ot I71.4 ABDOMINAL AORTIC ANEURYSM, WITHOUT RUPTU 05/07/2018 JUAREZ DAWSON MD, Ot M54.5 LOW BACK PAIN 05/07/2018 JUAREZ DAWSON MD, Ot N39.0 URINARY TRACT INFECTION, SITE NOT SPECIF 05/07/2018 JUAREZ DAWSON MD, Ot S32.030A WEDGE COMPRESSION FRACTURE OF THIRD LUMB 05/07/2018 JUAREZ DAWSON MD, Ot X50.0XXA OVEREXERTION FROM STRENUOUS MOVEMENT OR 05/07/2018 JUAREZ DAWSON MD, Ot Z79.82 CREDIT CORRESPONDENCE CLERK (CURRENT) USE OF ASPIRIN 05/07/2018 JUAREZ DAWSON MD, Ot Z79.84 CREDIT CORRESPONDENCE CLERK (CURRENT) USE OF ORAL HYPOGLYC 05/07/2018 JUAREZ DAWSON MD, Ot Z87.891 PERSONAL HISTORY OF NICOTINE DEPENDENCE 05/07/2018 JUAREZ DAWSON MD, Ot Z88.2 ALLERGY STATUS TO SULFONAMIDES STATUS 05/07/2018 JUAREZ DAWSON MD, Ot Z88.6 ALLERGY STATUS TO ANALGESIC AGENT STATUS 05/07/2018 JUAREZ DAWSON MD Ot Z90.49 ACQUIRED ABSENCE OF OTHER SPECIFIED PART 05/07/2018 JUAREZ DAWSON MD Ot Z90.710 ACQUIRED ABSENCE OF BOTH CERVIX AND UTER 05/07/2018 JUAREZ DAWSON MD Ot Z90.89 ACQUIRED ABSENCE OF OTHER ORGANS 05/07/2018 JUAREZ DAWSON MD Ot 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 BYPASS GRAFT 05/07/2018 JUAREZ DAWSON MD Ot Z98.890 OTHER SPECIFIED POSTPROCEDURAL STATES 05/12/2018 RAFIQ CAMPOVERDEP Ot I70.208 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 05/12/2018 RAFIQ CAMPOVERDEP Ot I70.8 ATHEROSCLEROSIS OF OTHER ARTERIES 05/12/2018 RAFIQ CAMPOVERDE Ot I71.4 ABDOMINAL AORTIC ANEURYSM, WITHOUT RUPTU 05/12/2018 RAFIQ CAMPOVERDEP Ot 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 05/12/2018 RAFIQ CAMPOVERDEP Ot K43.9 VENTRAL HERNIA WITHOUT OBSTRUCTION OR GA 05/12/2018 RAFIQ CAMPOVERDE Archana COLLECTION SUPPORT SPECIALIST Ot N28.89 OTHER SPECIFIED DISORDERS OF KIDNEY AND 05/29/2018 CAROLINE MENDOZA MD Ot 338.29 OTHER CHRONIC PAIN 05/29/2018 CAROLINE MENDOZA MD Ot 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 05/29/2018 CAROLINE MENDOZA MD Ot 724.2 LUMBAGO 05/29/2018 CAROLINE MENDOZA MD Ot 724.4 LUMBOSACRAL NEURITIS NOS 05/29/2018 MAX DHILLON COLLECTION SUPPORT SPECIALIST Ot 401.1 BENIGN HYPERTENSION 05/29/2018 MAX DHILLON Ot 424.1 AORTIC VALVE DISORDER 05/29/2018 MAX DHILLON Ot 785.2 CARDIAC MURMURS NEC 05/29/2018 MAX DHILLON Ot 786.05 SHORTNESS OF BREATH 05/29/2018 ANDRE HERNANDEZ DO Ot 715.91 OSTEOARTHROS NOS-SHLDER 05/29/2018 ANDRE HERNANDEZ DO Ot 727.61 ROTATOR CUFF RUPTURE 05/29/2018 DIANNA MACHADO MD Ot 278.00 OBESITY, NOS 05/29/2018 DIANNA MACHADO MD Ot 721.3 LUMBOSACRAL SPONDYLOSIS 05/29/2018 DIANNA MACHADO MD Ot 724.6 DISORDERS OF SACRUM 05/29/2018 DIANNA MACHADO MD Ot 729.1 MYALGIA AND MYOSITIS NOS 05/29/2018 DIANNA MACHADO MD Ot V58.69 OTH MED,LT,CURRENT USE 05/29/2018 DIANNA MACHADO MD Ot V85.35 BODY MASS INDEX 35.0-35.9, ADULT 05/29/2018 DIANNA MACHADO MD Ot 278.00 OBESITY, NOS 05/29/2018 DIANNA MACHADO MD Ot 715.95 OSTEOARTHROS NOS-PELVIS 05/29/2018 DIANNA MACHADO MD Ot 721.3 LUMBOSACRAL SPONDYLOSIS 05/29/2018 DIANNA MACHADO MD Ot 729.1 MYALGIA AND MYOSITIS NOS 05/29/2018 DIANNA MACHADO MD Ot V58.69 OTH MED,LT,CURRENT USE 05/29/2018 DIANNA MACHADO MD Ot V85.33 BODY MASS INDEX 33.0-33.9, ADULT 05/29/2018 GARY ROLDAN, SHANIQUE Funk Ot 791.9 ABN URINE FINDINGS NEC 05/29/2018 BISHNU ROLDAN FACC, ALI FACP CCDS Ot E78.5 HYPERLIPIDEMIA, UNSPECIFIED 05/29/2018 BISHNU ROLDAN FACC, ALI FACP CCDS Ot I10 ESSENTIAL (PRIMARY) HYPERTENSION 05/29/2018 BISHNU ROLDAN FACC, ALI FACP CCDS Ot I25.10 ATHSCL HEART DISEASE OF [place] CORONARY 05/29/2018 BISHNU ROLDAN FACC, ALI FACP CCDS Ot I48.0 PAROXYSMAL ATRIAL FIBRILLATION 05/29/2018 BISHNU RLODAN FACC, ALI FACP CCDS Ot I65.29 OCCLUSION AND STENOSIS OF UNSPECIFIED CA 05/29/2018 BISHNU ROLDAN FACC, ALI FACP CCDS Ot R06.02 SHORTNESS OF BREATH 05/29/2018 BISHNU ROLDAN FACC, ALI FACP CCDS Ot E78.5 HYPERLIPIDEMIA, UNSPECIFIED 05/29/2018 BISHNU ROLDAN FACC, ALI FACP CCDS Ot I10 ESSENTIAL (PRIMARY) HYPERTENSION 05/29/2018 BISHNU ROLDAN FACC, ALI FACP CCDS Ot I25.10 ATHSCL HEART DISEASE OF [place] CORONARY 05/29/2018 BISHNU ROLDAN FACC, ALI FACP CCDS Ot I48.0 PAROXYSMAL ATRIAL FIBRILLATION 05/29/2018 BISHNU ROLDAN FACC, ALI FACP CCDS Ot I65.29 OCCLUSION AND STENOSIS OF UNSPECIFIED CA 05/29/2018 BISHNU ROLDAN FACC, ALI FACP CCDS Ot E78.4 OTHER HYPERLIPIDEMIA 05/29/2018 BISHNU ROLDAN FACC, ALI FACP CCDS Ot I10 ESSENTIAL (PRIMARY) HYPERTENSION 05/29/2018 BISHNU ROLDAN FACC, ALI FACP CCDS Ot I25.10 ATHSCL HEART DISEASE OF [place] CORONARY 05/29/2018 BISHNU ROLDAN FACC, ALI FACP CCDS Ot I48.0 PAROXYSMAL ATRIAL FIBRILLATION 05/29/2018 BISHNU ROLDAN FACC, ALI FACP CCDS Ot I71.4 ABDOMINAL AORTIC ANEURYSM, WITHOUT RUPTU 05/29/2018 LUL NORWOOD MD Ot R32 UNSPECIFIED URINARY INCONTINENCE 05/29/2018 LUL NORWOOD MD Ot R33.9 RETENTION OF URINE, UNSPECIFIED 05/29/2018 CUCO MD, LUL A Ot Z01.818 ENCOUNTER FOR OTHER PREPROCEDURAL EXAMIN 05/29/2018 SATHISH ABAD COLLECTION SUPPORT SPECIALIST Ot 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 05/29/2018 SATHISH ABAD L COLLECTION SUPPORT SPECIALIST Ot 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 05/29/2018 SATHISH ABAD L COLLECTION SUPPORT SPECIALIST Ot I71.4 ABDOMINAL AORTIC ANEURYSM, WITHOUT RUPTU 05/29/2018 SATHISH ABAD L COLLECTION SUPPORT SPECIALIST Ot K42.9 UMBILICAL HERNIA WITHOUT OBSTRUCTION OR 05/29/2018 JENNIFFER SATHISH L COLLECTION SUPPORT SPECIALIST Ot K76.89 OTHER SPECIFIED DISEASES OF LIVER 05/29/2018 GREYSON ABADHER L COLLECTION SUPPORT SPECIALIST Ot N28.1 CYST OF KIDNEY, ACQUIRED 05/29/2018 SATHISH ABAD L COLLECTION SUPPORT SPECIALIST Ot 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 05/29/2018 SATHISH ABAD COLLECTION SUPPORT SPECIALIST Ot 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 05/29/2018 SATHISH ABAD L COLLECTION SUPPORT SPECIALIST Ot I71.4 ABDOMINAL AORTIC ANEURYSM, WITHOUT RUPTU 05/29/2018 SATHISH ABAD L COLLECTION SUPPORT SPECIALIST Ot I77.2 RUPTURE OF ARTERY 05/29/2018 SATHISH ABAD L COLLECTION SUPPORT SPECIALIST Ot J43.9 EMPHYSEMA, UNSPECIFIED 05/29/2018 SATHISH ABAD L COLLECTION SUPPORT SPECIALIST Ot 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 05/29/2018 MARCIA LUI MD Ot 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 05/29/2018 MARCIA LUI MD Ot Z01.810 ENCOUNTER FOR PREPROCEDURAL CARDIOVASCUL 05/29/2018 MARCIA LUI MD Ot Z01.811 ENCOUNTER FOR PREPROCEDURAL RESPIRATORY 05/29/2018 MARCIA LUI MD Ot Z01.812 ENCOUNTER FOR PREPROCEDURAL LABORATORY E 05/29/2018 BISHNU ROLDAN FACC, CHELLE FACP CCDS Ot E78.5 HYPERLIPIDEMIA, UNSPECIFIED 05/29/2018 BISHNU ROLDAN FACC, CHELLE FACP CCDS Ot I25.10 ATHSCL HEART DISEASE OF [place] CORONARY 05/29/2018 BISHNU ROLDAN FACC, CHELLE FACP CCDS Ot I48.0 PAROXYSMAL ATRIAL FIBRILLATION 05/29/2018 BISHNU ROLDAN FACC, ALI FACP CCDS Ot I71.4 ABDOMINAL AORTIC ANEURYSM, WITHOUT RUPTU 05/29/2018 BIHSNU ROLDAN [facility], ALI FACP CCDS Ot R06.02 SHORTNESS OF BREATH 05/29/2018 BISHNU ROLDAN [facility], CHELLE FACP CCDS Ot R53.1 WEAKNESS 05/29/2018 MARCIA LUI MD F Ot 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 05/29/2018 MARCIA LUI MD F Ot Z01.810 ENCOUNTER FOR PREPROCEDURAL CARDIOVASCUL 05/29/2018 MARCIA LUI MD F Ot Z01.811 ENCOUNTER FOR PREPROCEDURAL RESPIRATORY 05/29/2018 SHANIQUE VEGA MD F Ot R82.90 UNSPECIFIED ABNORMAL FINDINGS IN URINE 05/29/2018 MARCIA LUI MD F Ot 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 05/29/2018 MARCIA LUI MD F Ot Z01.810 ENCOUNTER FOR PREPROCEDURAL CARDIOVASCUL 05/29/2018 MARCIA LUI MD F Ot Z01.811 ENCOUNTER FOR PREPROCEDURAL RESPIRATORY 05/29/2018 RAFIQ CAMPOVERDE COLLECTION SUPPORT SPECIALIST Ot I70.208 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 05/29/2018 RAFIQ CAMPOVERDE COLLECTION SUPPORT SPECIALIST Ot I70.8 ATHEROSCLEROSIS OF OTHER ARTERIES 05/29/2018 RAFIQ CAMPOVERDE COLLECTION SUPPORT SPECIALIST Ot I71.4 ABDOMINAL AORTIC ANEURYSM, WITHOUT RUPTU 05/29/2018 RAFIQ CAMPOVERDE COLLECTION SUPPORT SPECIALIST Ot 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 05/29/2018 RAFIQ CAMPOVERDE COLLECTION SUPPORT SPECIALIST Ot K43.9 VENTRAL HERNIA WITHOUT OBSTRUCTION OR GA 05/29/2018 RAFIQ CAMPOVERDE COLLECTION SUPPORT SPECIALIST Ot N28.89 OTHER SPECIFIED DISORDERS OF KIDNEY AND 05/29/2018 MARCIA LUI MD F Ot 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 05/29/2018 MARCIA LUI MD F Ot Z01.810 ENCOUNTER FOR PREPROCEDURAL CARDIOVASCUL 05/29/2018 MARCIA LUI MD F Ot Z01.811 ENCOUNTER FOR PREPROCEDURAL RESPIRATORY 05/30/2018 MARCIA LUI MD F Ot 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 05/30/2018 MARCIA LUI MD F Ot Z01.810 ENCOUNTER FOR PREPROCEDURAL CARDIOVASCUL 05/30/2018 RABBI ROLDAN, MARCIA F Ot Z01.811 ENCOUNTER FOR PREPROCEDURAL RESPIRATORY Procedures Code [place] [address] INDIV PSYTX 45/50 MIN 10/22/2012 16007 ROUTINE VENIPUNCTURE 10/24/2012 64512 BMP 10/24/2012 05245 MAGNESIUM 10/24/2012 [id number] GFR CALC (RESULT ONLY) 10/24/2012 2000 BLOOD PRESSURE CHECK 11/14/2012 37589 ROUTINE VENIPUNCTURE 01/15/2013 57224 BMP 01/15/2013 [id number] GFR CALC (RESULT ONLY) 01/15/2013 15468 LIPID PANEL 01/15/2013 59196 ROUTINE VENIPUNCTURE 05/06/2013 42331 A1C (IN-HOUSE) 05/06/2013 20729 CMP 05/06/2013 97928 MAGNESIUM 05/06/2013 [id number] GFR CALC (RESULT ONLY) 05/06/2013 22497 CPK 05/06/2013 76589 PSYTX PT&/FAMILY 45 MINUTES 05/14/2013 87472 OXIMETRY 07/01/2013 J7613 ALBUTEROL UNIT DOSE FORM INHALED 07/01/2013 J2930 SOLUMEDROL INJ 07/02/2013 39919 THERAPUTIC INJ SQ/IM 07/02/2013 01324 OXIMETRY 07/02/2013 2000F BLOOD PRESSURE CHECK 07/02/2013 G0008 FLU ADMINISTRATION ( MEDICARE ONLY) 08/06/2013 02190 OXIMETRY 08/13/2013 58540 ROUTINE VENIPUNCTURE 08/31/2013 08887 GLUCOSE 08/31/2013 43942 LIPID PANEL 08/31/2013 03366 A1C (IN-HOUSE) 09/08/2013 55648 XRAY CHEST 2 VIEW 11/12/2013 10934 MEASURE BLOOD OXYGEN LEVEL 11/12/2013 21430 THERAPUTIC INJ SQ/IM 12/11/2013 J2930 SOLUMEDROL INJ 12/11/2013 05072 A1C (IN-HOUSE) 12/11/2013 69452 ROUTINE VENIPUNCTURE 12/15/2013 35432 EKG, TRACING (IN-HOUSE) 12/15/2013 43135 XRAY CHEST 2 VIEW 12/15/2013 97635 ECHO 2D 12/15/2013 82193 OXIMETRY 12/15/2013 35705 CBC 12/15/2013 5046967 GFR CALC (RESULT ONLY) 12/15/2013 43333 CMP 12/15/2013 98863 MAGNESIUM 12/15/2013 57846 BNP 12/16/2013 62114 ROUTINE VENIPUNCTURE 01/13/2014 14707 OXIMETRY 01/13/2014 8922005 GFR CALC (RESULT ONLY) 01/14/2014 42311 CMP 01/14/2014 50314 MAGNESIUM 01/14/2014 63336 OXIMETRY 01/28/2014 46149 ROUTINE VENIPUNCTURE 03/24/2014 05678 LIPID PANEL 03/24/2014 15749 ROUTINE VENIPUNCTURE 07/02/2014 1395221 GFR CALC (RESULT ONLY) 07/02/2014 17923 CMP 07/02/2014 04551 LIPID PANEL 07/02/2014 09511 [employer] 08/17/2014 52569 US SOFT TISSUE (SPECIFY LOCATION) 09/15/2014 CARDIOLOG CHELLE GOETZ 09/15/2014 G0008 FLU ADMINISTRATION ( MEDICARE ONLY) 09/15/2014 PULMONARY WILL CASPER 09/15/2014 07951 US ABDOMINAL ULTRASOUND, COMPLETE 11/26/2014 53167 LEFT HEART CATH 01/25/2015 94353 US CAROTID DOPPLER 01/25/2015 23866 OXIMETRY 01/25/[address] ANGIO, EXTREMITY, LOWER 02/08/2015 Results Test [...] FOR INFLUENZA A AND B ANTIGENS BY AL NR Complete blood count (CBC) with automated [...] culture - 12/14/17 20:50 Bacterial urine culture [id number] NRG COLONY COUNT <10,000 NRG MRSA AGAR [...] culture - 02/16/18 09:30 Bacterial urine culture [id number] NRG COLONY COUNT 10,000/ML - 100,000/ML NRG FTX;REPORTABLE SENSITIVITY REPORTED 02/18 16:30 [facility] Bacterial susceptibility panel - 02/16/18 09:30 Gentamicin susceptibility test by minimum inhibitory concentration R NR Vancomycin susceptibility test by minimum inhibitory concentration 1 NR Levofloxacin susceptibility test by minimum inhibitory concentration >= NRG Tetracycline susceptibility test by minimum inhibitory concentration >= NR Ampicillin susceptibility test by minimum inhibitory concentration < = NRG Ciprofloxacin susceptibility test by minimum inhibitory concentration R NR Nitrofurantoin susceptibility test by minimum inhibitory concentration <= NR Linezolid susceptibility test by minimum inhibitory concentration 2 [facility] Bacterial susceptibility panel - 02/16/18 09:30 Oxacillin susceptibility test by minimum inhibitory concentration > = NR Gentamicin susceptibility test by minimum inhibitory concentration < = NR Trimethoprim/sulfamethoxazole susceptibility test by minimum inhibitoryconcentration S [...] Staphylococcus aureus (MRSA) screening culture NEG NRG Complete urinalysis with reflex to culture - 05/05/18 05:39 Urine color determination YELLOW NRG Urine clarity [...] NEGATIVE Urine nitrite detection by test strip POSITIVE NEGATIVE Urine total bilirubin detection by test strip NEGATIVE NEGATIVE Urine urobilinogen measurement by automated test strip (mass/volume) NORMAL NORMAL Urine leukocyte esterase detection by dipstick 3+ NEGATIVE Automated urine sediment erythrocyte count by microscopy (number/high power field) [HPF] NRG Automated urine sediment leukocyte count by microscopy (number/high power field ) [HPF] NRG Bacteria detection in urine sediment by light microscopy MODERATE NRG Squamous epithelial cells detection in urine sediment by light microscopy 2-5 NRG Crystals detection in urine sediment by light microscopy NONE NRG Casts detection in urine sediment by light microscopy NONE NRG Mucus detection in urine sediment by light microscopy MODERATE NRG Complete urinalysis with reflex to culture YES NRG Bacterial urine culture - 05/05/18 05:39 Bacterial urine culture SEE COMMEN NRG COLONY COUNT . NRG Complete blood count (CBC) with automated white blood cell (WBC) differential - 05/05/18 05:41 Blood leukocytes automated count (number/volume) 10.8 10*3/uL 4.3-11.0 Blood erythrocytes automated count (number/volume) 3.95 10*6/uL 4.35-5.85 Venous blood hemoglobin measurement (mass/volume) 12.2 g/dL 11.5-16.0 Blood hematocrit (volume fraction) 36 % 35-52 Automated erythrocyte mean corpuscular volume 91 [foz_us] 80-99 Automated erythrocyte mean corpuscular hemoglobin (mass per erythrocyte) 31 pg 25-34 Automated erythrocyte mean corpuscular hemoglobin concentration measurement ( mass/volume) 34 g/dL 32-36 Automated erythrocyte distribution width ratio 15.4 % 10.0-14.5 Automated blood platelet count (count/volume) 242 10*3/uL 130-400 Automated blood platelet mean volume measurement 9.8 [foz_us] 7.4-10.4 Automated blood neutrophils/100 leukocytes 64 % 42-75 Automated blood lymphocytes/100 leukocytes 23 % 12-44 Blood monocytes/100 leukocytes 11 % 0-12 Automated blood eosinophils/100 leukocytes 2 % 0-10 Automated blood basophils/100 leukocytes 0 % 0-10 Blood neutrophils automated count (number/volume) 6.9 10*3 1.8-7.8 Blood lymphocytes automated count (number/volume) 2.4 10*3 1.0-4.0 Blood monocytes automated count (number/volume) 1.1 10*3 0.0-1.0 Automated eosinophil count 0.2 10*3/uL 0.0-0.3 Automated blood basophil count (count/volume) 0.0 10*3/uL 0.0-0.1 Comprehensive metabolic panel - 05/05/18 05:41 Serum or plasma sodium measurement (moles/volume) 141 mmol/L 135-145 Serum or plasma potassium measurement (moles/volume) 4.8 mmol/L 3.6-5.0 Serum or plasma chloride measurement (moles/volume) 106 mmol/L 98-107 Carbon dioxide 23 mmol/L 21-32 Serum or plasma anion gap determination (moles/volume) 12 mmol/L 5-14 Serum or plasma urea nitrogen measurement (mass/volume) 26 mg/dL 7-18 Serum or plasma creatinine measurement (mass/volume) 0.75 mg/dL 0.60-1.30 Serum or plasma urea nitrogen/creatinine mass ratio 35 NRG Serum or plasma creatinine measurement with calculation of estimated glomerular filtration rate > NRG Serum or plasma glucose measurement (mass/volume) 107 mg/dL 70-105 Serum or plasma calcium measurement (mass/volume) 9.5 mg/dL 8.5-10.1 Serum or plasma total bilirubin measurement (mass/volume) 0.4 mg/dL 0.1-1.0 Serum or plasma alkaline phosphatase measurement (enzymatic activity/volume) 66 U/L 40-136 Serum or plasma aspartate aminotransferase measurement (enzymatic activity/ volume) 17 U/L 5-34 Serum or plasma alanine aminotransferase measurement (enzymatic activity/volume ) 26 U/L 0-55 Serum or plasma protein measurement (mass/volume) 7.1 g/dL 6.4-8.2 Serum or plasma albumin measurement (mass/volume) 3.9 g/dL 3.2-4.5 Blood lactic acid measurement (moles/volume) - 05/05/18 05:50 Blood lactic acid measurement (moles/volume) 1.00 mmol/L 0.50-2.00 Bacterial blood culture - 05/05/18 05:50 Bacterial blood culture NG NRG Bacterial blood culture - 05/05/18 06:20 Bacterial blood culture NG NRG Encounters ACCT No. Visit Date/Time Discharge Status Pt. Type Provider Facility Loc./Unit Complaint [id number] 03/18/2015 16:54:00 03/18/2015 23:59:59 CLS Outpatient SHANIQUE VEGA MD [id number] 01/25/2015 09:06:00 01/25/2015 23:59:59 CLS Outpatient ELIZABETH MD, SHARIF N [id number] 12/06/2014 05:51:00 12/06/2014 23:59:59 CLS Outpatient SHANIQUE VEGA MD [id number] 11/26/2014 15:23:00 11/26/2014 23:59:59 CLS Outpatient SHARIF JOHNSON MD [id number] 11/26/2014 15:23:00 11/26/2014 23:59:59 CLS Outpatient SHARIF JOHNSON MD [id number] 11/13/2014 15:20:00 11/13/2014 23:59:59 CLS Outpatient ILIR MIKE VILLALOBOS [id number] 10/27/2014 13:31:00 10/27/2014 23:59:59 CLS Outpatient MASSIEL VEGA [id number] 09/15/2014 16:03:00 09/15/2014 23:59:59 CLS Outpatient SHARIF JOHNSON MD [id number] 08/17/2014 15:49:00 08/17/2014 23:59:59 CLS Outpatient SHARIF JOHNSON MD [id number] 07/29/2014 10:54:00 07/29/2014 23:59:59 CLS Outpatient JOVANNI BURGOSDESI [id number] 07/02/2014 11:34:00 07/02/2014 23:59:59 CLS Outpatient SHARIF JOHNSON MD [id number] 06/18/2014 14:51:00 06/18/2014 23:59:59 CLS Outpatient SHARIF JOHNSON MD [id number] 06/02/2014 14:58:00 06/02/2014 23:59:59 CLS Outpatient JOVANNI BURGOS DESI CONRAD [id number] 05/18/2014 14:07:00 05/18/2014 23:59:59 CLS Outpatient SHARIF JOHNSON MD [id number] 03/24/2014 15:01:00 03/24/2014 23:59:59 CLS Outpatient SHARIF JOHNSON MD [id number] 03/11/2014 13:43:00 03/11/2014 23:59:59 CLS Outpatient SHARIF JOHNSON MD [id number] 01/28/2014 14:29:00 01/28/2014 23:59:59 CLS Outpatient SHARIF JOHNSON MD [id number] 01/28/2014 14:29:00 01/28/2014 23:59:59 CLS Outpatient SHARIF JOHNSON MD [id number] 01/13/2014 15:39:00 01/13/2014 23:59:59 CLS Outpatient CAROLINE MENDOZA MD [id number] 01/13/2014 15:39:00 01/13/2014 23:59:59 CLS Outpatient CAROLINE MENDOZA MD [id number] 12/15/2013 15:34:00 12/15/2013 23:59:59 CLS Outpatient MIKE HAZEL DO [id number] 12/15/2013 15:34:00 12/15/2013 23:59:59 CLS Outpatient JACQUIE [facility]IT[facility] THERAPIST, MAX Andre [id number] 12/11/2013 11:52:00 12/11/2013 23:59:59 CLS Outpatient JACQUIE WOODSMAX Menjivar [id number] 11/12/2013 16:30:00 11/12/2013 23:59:59 CLS Outpatient JIMMY [facility] REHABILITATION THERAPIST SHAHNAZ Miles [id number] 11/09/2013 12:50:00 11/09/2013 23:59:59 CLS Outpatient AUDIE MARC APRN Milla [id number] 11/03/2013 09:32:00 11/03/2013 23:59:59 CLS Outpatient JOVANNI WOODSNDESI [id number] 10/20/2013 09:44:00 10/20/2013 23:59:59 CLS Outpatient DESI BAIG APRN [id number] 09/22/2013 14:05:00 09/22/2013 23:59:59 CLS Outpatient CAROLINE MENDOZA MD [id number] 09/08/2013 08:20:00 09/08/2013 23:59:59 CLS Outpatient CAROLINE MENDOZA MD [id number] 08/31/2013 08:05:00 08/31/2013 23:59:59 CLS Outpatient CAROLINE MENDOZA MD [id number] 08/07/2013 11:43:00 08/07/2013 23:59:59 CLS Outpatient MARIA DE JESUS BUTLER DO [id number] 01/22/2013 09:37:00 01/22/2013 23:59:59 CLS Outpatient MARIA DE JESUS BUTLER DO [id number] 01/15/2013 10:49:00 01/15/2013 23:59:59 CLS Outpatient CAROLINE MENDOZA MD [id number] 01/15/2013 10:49:00 01/15/2013 23:59:59 CLS Outpatient CAROLINE MENDOZA MD [id number] 12/23/2012 13:28:00 12/23/2012 23:59:59 CLS Outpatient MARIA DE JESUS BUTLER DO [id number] 11/24/2012 14:22:00 11/24/2012 23:59:59 CLS Outpatient MIKE HAZEL DO [id number] 11/14/2012 13:45:00 11/14/2012 23:59:59 CLS Outpatient MIKE HAZEL DO [id number] 10/24/2012 13:17:00 10/24/2012 23:59:59 CLS Outpatient SHANIQUE VEGA MD [id number] 10/24/2012 13:17:00 10/24/2012 23:59:59 CLS Outpatient [id number] 10/21/2012 10:34:00 10/21/2012 23:59:59 CLS Outpatient [id number] 09/11/2012 11:29:00 09/11/2012 23:59:59 CLS Outpatient CARRIE VILLALOBOSMARIA DE JESUS [id number] 07/27/2013 11:07:00 Document Registration [id number] 07/02/2013 08:45:00 Document Registration [id number] 07/01/2013 11:44:00 Document Registration [id number] 07/01/2013 11:44:00 Document Registration [id number] 06/05/2013 08:35:00 Document Registration [id number] 05/13/2013 09:45:00 Document Registration [id number] 05/06/2013 10:52:00 Document Registration [id number] 04/21/2013 11:00:00 Document Registration [id number] 03/13/2013 11:19:00 Document Registration [id number] 05/05/2018 05:12:00 05/05/2018 10:27:00 DIS Emergency EUNICE ROLDAN, JUAREZ Pwoell [facility] ER BACK PAIN [id number] 04/10/2018 13:32:00 04/10/2018 23:59:59 CLS Outpatient RAFIQ CAMPOVERDE [facility] RAD ABDOMINAL AORTIC ANEURYSM, ILIAC ANEURYSYM [id number] 04/01/2018 07:46:00 04/01/2018 14:20:00 DIS Outpatient BISHNU ROLDAN FACC, CHELLE WALTERS CCDS [facility] CATH PERIPHERAL ANGIOGRAPHY [id number] 03/12/2018 09:18:00 03/12/2018 23:59:59 CLS Outpatient MARCIA LUI MD [facility] CARD PREOP Z01.810 Z01.818 [id number] 03/05/2018 08:57:00 03/05/2018 23:59:59 CLS Outpatient BISHNU ROLDAN FACAndrea, CHELLE WALTERS CCDS [facility] CARD SOB [id number] 02/16/2018 10:58:00 02/16/2018 23:59:59 CLS Outpatient SHANIQUE VEGA MD [facility] CVS UTI [id number] 02/10/2018 10:54:00 02/10/2018 23:59:59 CLS Outpatient MARCIA LUI MD [facility] CARD CAROTID ARTERY STENOSIS, BILATERAL [id number] 12/23/2017 10:16:00 12/23/2017 23:59:59 CLS Outpatient MARCIA LUI MD [facility] CARD Z01.810,Z01.818 [id number] 2017 20:15:00 2017 22:55:00 DIS Emergency JESSICA JENKINS MD [facility] ER WENT UNRESPONSIVE,HIT HEAD , VCV [id number] 12/02/2017 07:48:00 12/02/2017 23:59:59 CLS Outpatient SATHISH ABAD [facility] RAD I65.23 [id number] 11/26/2017 21:20:00 11/27/2017 11:41:00 DIS Inpatient PRUDENCE SHAW MD [facility] 4TH UROSEPSIS,ABDOMINAL PAIN, FEVER [id number] 11/26/2017 07:18:00 11/26/2017 15:18:00 DIS Outpatient LUL NORWOOD MD [facility] INCONTINENCE,RETENTION [id number] 11/25/2017 13:20:00 11/25/2017 23:59:59 CLS Outpatient SATHISH ABAD [facility] RAD CAROTID ARTERY STENOSIS [id number] 11/19/2017 05:29:00 11/19/2017 14:39:00 DIS Outpatient LUL NORWOOD MD [facility] PREOP INCONTINENCE,RETENTION [id number] 11/04/2017 05:57:00 11/04/2017 23:59:59 CLS Outpatient LUL NORWOOD MD [facility] PREOP INCONTINENCE,RETENTION [id number] 10/15/2017 07:43:00 10/15/2017 23:59:59 CLS Outpatient BISHNU ROLDAN FACC, ALI FACP CCDS [facility] RAD AAA [id number] 10/15/2017 07:43:00 10/15/2017 14:13:00 DIS Outpatient BISHNU ROLDAN FACC, ALI FACP CCDS [facility] CATH AAA,CAD,PAF, HTN [id number] 10/08/2017 07:01:00 10/08/2017 23:59:59 CLS Outpatient BISHNU ROLDAN FACAndrea, ALI FACP CCDS [facility] CARD R06.02 SOB [id number] 10/04/2017 13:16:00 10/04/2017 23:59:59 CLS Outpatient BISHNU ROLDAN FACC, ALI FACP CCDS [facility] CARD SOB [id number] 10/04/2017 07:15:00 10/04/2017 23:59:59 CLS Preadmit BISHNU ROLDAN FACC, ALI FACP CCDS [facility] CARD SOB [id number] 02/12/2017 05:56:00 02/12/2017 11:40:00 DIS Outpatient LUL NORWOOD MD [facility] SDC OAB [id number] 02/06/2017 09:39:00 02/06/2017 13:57:00 DIS Outpatient LUL NORWOOD MD [facility] PREOP OAB [id number] 11/27/2016 06:58:00 11/28/2016 16:00:00 DIS Outpatient LUL NORWOOD MD [facility] SDC ISD [id number] 11/22/2016 10:00:00 11/22/2016 13:00:00 DIS Outpatient LUL NORWOOD MD [facility] PREOP ISD [id number] 05/14/2016 15:45:00 05/16/2016 13:05:00 DIS Inpatient PRUDENCE SHAW MD [facility] 4TH R SIDE ABD PAIN, N/V, LEUKOCYTOSIS [id number] 12/07/2015 07:47:00 12/07/2015 09:30:00 DIS Emergency CHARLES ROLDAN, TARA Arellano [facility] ER RT HIP PAIN [id number] 03/10/2015 11:28:00 03/15/2015 12:00:00 DIS Inpatient SHARIF JOHNSON MD [facility] CSD CHF HYPOKALEMIA FALLS THYROID DYSFUNCTION [id number] 02/27/2015 21:37:00 02/28/2015 13:30:00 DIS Inpatient SHANIQUE VEGA MD [facility] SURGICAL ALTERED MENTAL STATUS UTI [id number] 02/25/2015 03:44:00 02/25/2015 06:24:00 DIS Emergency EUNICE ROLDAN, JUAREZ Powell [facility] ER FALL,BUMP ON LFT SIDE OF HEAD [id number] 02/03/2015 17:50:00 02/24/2015 16:55:00 DIS Inpatient SASHA ROLDAN, MYRNA Mc [facility] IRF DEBILITY [id number] 12/28/2014 09:10:00 12/28/2014 17:30:00 DIS Outpatient BISHNU ROLDAN FACC, CHELLE FACP CCDS [facility] CATH CAD FATIGUE LOWER EXTREMITY DISCOMFORT [id number] 12/24/2014 13:00:00 12/24/2014 23:59:59 CLS Outpatient SHANIQUE VEGA MD [facility] HH POSSIBLE UTI [id number] 12/20/2014 20:00:00 12/20/2014 23:59:59 CLS Preadmit WILL CASPER DO [facility] SLEEP ARRHYTHMIAS,MOOD DISORDER,HYPOXIA [id number] 12/03/2014 09:58:00 12/03/2014 10:47:00 DIS Outpatient DIANNA MACHADO MD [facility] CARD HIP OSTEOARTHRITIS [id number] 12/02/2014 09:45:00 12/02/2014 23:59:59 CLS Preadmit SHARIF JOHNSON MD [facility] RAD NAUSEA,UNABLE TO TOLERATE SOLID FOODS [id number] 11/22/2014 14:15:00 11/22/2014 23:59:59 CLS Preadmit WILL CASPER DO [facility] RT HYPOXIA DYPSNEA [id number] 11/11/2014 11:54:00 11/11/2014 14:00:00 DIS Emergency EMANUEL WILKINSON MD [facility] ER NAUSEA [id number] 11/04/2014 17:27:00 11/05/2014 11:35:00 DIS Inpatient SHANIQUE VEGA MD [facility] 4TH UTI,GENERAL MALAISE [id number] 11/01/2014 22:05:00 11/02/2014 16:45:00 DIS Inpatient ILIR VILLALOBOS MIKE K [facility] 4TH UTI,ALTERED MENTAL STATUS [id number] 09/25/2014 11:09:00 09/25/2014 23:59:59 CLS Outpatient [id number] 08/23/2014 12:50:00 08/23/2014 23:59:59 CLS Outpatient DIANNA MACHADO MD [facility] CARD HIP OSTEOARTHRITIS [id number] 08/02/2014 10:32:00 08/02/2014 23:59:59 CLS Outpatient ANDRE HERNANDEZ DO W [facility] RAD SHOULDER PAIN [id number] 07/23/2014 08:50:00 07/23/2014 23:59:59 CLS Outpatient DIANNA MACHADO MD [facility] CARD SIJD [id number] 06/28/2014 12:46:00 06/28/2014 14:24:00 DIS Outpatient DIANNA MACHADO MD [facility] CARD HIP OSTEOARTHRITIS [id number] 06/07/2014 12:24:00 06/07/2014 14:09:00 DIS Emergency ANA RUFINA VILLALOBOS [facility] ER LEFT SHOULDER INJURY [id number] 05/24/2014 12:58:00 05/24/2014 13:45:00 DIS Outpatient DIANNA MACHADO MD [facility] CARD HIP OSTEOARTHRITIS [id number] 12/22/2013 12:42:00 12/22/2013 23:59:59 CLS Outpatient MAX DHILLON [facility] CARD HEART MURMUR LOWER EXT EDEMA [id number] 11/12/2013 18:13:00 11/14/2013 14:30:00 DIS Inpatient ELIZABETH ROLDAN, SHARIF Menijvar [facility] 4TH COPD EXACERBATION [id number] 07/02/2013 11:37:00 07/09/2013 12:50:00 DIS Inpatient GARY ROLDAN, SHANIQUE Funk [facility] 4TH COPD,EXACERBATION [id number] 07/02/2013 11:06:00 07/02/2013 23:59:59 CLS Emergency [id number] 06/11/2013 09:24:00 06/11/2013 23:59:59 CLS Outpatient REJI ROLDAN, CAROLINE Magaña [facility] RAD CHRONIC LOW BACK PAIN WITH RADICULOPATHY [id number] 02/17/2015 16:12:00 Document Registration [id number] 02/17/2015 16:12:00 Document Registration [id number] 02/17/2015 16:12:00 Document Registration [id number] 02/17/2015 16:12:00 Document Registration [id number] 09/30/2012 14:20:00 Document Registration [id number] 07/01/2012 14:08:00 Document Registration [id number] 03/11/2012 14:34:00 Document Registration [id number] 10/17/2011 15:30:00 Document Registration [id number] 10/09/2011 15:24:00 Document Registration [id number] 10/06/2011 09:02:00 Document Registration [id number] 07/30/2011 17:25:00 Document Registration [id number] 07/17/2011 16:12:00 Document Registration [id number] 09/10/2017 10:20:00 09/10/2017 23:59:59 CLS Outpatient GARY ROLDAN, SHANIQUE [id number] 03/10/2015 09:27:29 ACT Document Registration
[2018-09-04] MEDS ORDERED: CATHETER FLUSH 10 ML SYR IV PRN (12:30)
[2018-09-04] MEDS ORDERED: IOHEXOL 350 MG/ML 100 ML (OMNIPAQUE 350) VIAL IV ONE (12:30)
[2018-09-04] MEDS ORDERED: NS 250 ML (IVPB) BAG IV ONE (12:30)
--- NOTE | 2018-09-04 12:37 | ED GU-Female ---
General Chief Complaint: Catheter/Drain/Tube Problems Stated Complaint: PAIN AROUND CATH Nursing Triage Note: PT STATES SHE HAS BEEN EXPERIENCING PAIN IN HER LOWER ABDOMEN WITH BLOOD IN HER URINE FOR THE LAST THREE DAYS. PT HAS A SUPRAPUBIC CATHETER PLACED. DRIED BLOOD NOTED AROUND THE INSERTION SITE WITH BLOOD TINGED URINE IN THE COLLECTION BAG. Nursing Sepsis Screen: No Definite Risk Source: patient, other ([place] staff) Exam Limitations: no limitations History of Present Illness Date Seen by Provider: Sep 04, 2018 Time Seen by Provider: 11:38 Initial Comments 82-year-old female patient presents to the emergency department from [facility]. Patient reportedly had severe lower abdominal pain this a.m. skilled nursing staff reportedly changed the patient's suprapubic catheter. Denies any difficulty with changing the catheter. Patient denies any improvement in symptoms after catheter was changed. Suprapubic catheter placed in November [address] James for neurogenic bladder and incontinence. Timing/Duration: this morning Severity/Quality: severe, cramping, sharp Location: suprapubic Radiation: vaginal Activities at Onset: none Modifying Factors: Worsens With Palpation, Worsens With Other (no improvement with catheter change) Allergies and Home Medications Allergies Coded Allergies: Sulfa (Sulfonamide Antibiotics) (Verified Allergy, Unknown, 09/04/18) diphenhydramine HCl (Verified Allergy, Unknown, 09/04/18) hydrochlorothiazide (Unverified Allergy, Unknown, 09/04/18) varenicline tartrate (Verified Allergy, Unknown, 09/04/18) Home Medications Acetaminophen 325 Mg Tablet, 650 MG PO Q4H PRN for PAIN-MILD, (Reported) Acetaminophen 325 Mg Tablet, 325 MG PO TID, (Reported) Albuterol Sulfate 8.5 Gm Hfa.aer.ad, 1 PUFF IH Q4H PRN for SHORTNESS OF BREATH, (Reported) Albuterol Sulfate 1 Puff Puff, 2 PUFF IH Q6H PRN for SHORTNESS OF BREATH, ( Reported) 1 PUFF = 90 MCG Apixaban 5 Mg Tablet, 5 MG PO BID, (Reported) Aspirin 81 Mg Tab.chew, 81 MG PO DAILY, (Reported) Atorvastatin Calcium 40 Mg Tablet, 40 MG PO HS, (Reported) Budesonide/Formoterol Fumarate 10.2 Gm Hfa.aer.ad, 2 PUFF IH BID, (Reported) Bupropion HCl 300 Mg Tab.er.24h, 300 MG PO HS, (Reported) Cephalexin 500 Mg Capsule, 500 MG PO QID Prescribed by: JUAREZ CLAY on 05/05/18941 Escitalopram Oxalate 20 Mg Tablet, 20 MG PO DAILY, (Reported) Estradiol 42.5 Gm Cream.appl, 1.25 GM VG PRN PRN for UTI PROPHYLAXIS, (Reported) Furosemide 20 Mg Tablet, 20 MG PO Q48H, (Reported) Gabapentin 400 Mg Capsule, 400 MG PO TID, (Reported) Lorazepam 0.5 Mg Tablet, 0.5 MG PO DAILY, (Reported) Metformin HCl 500 Mg Tablet, 500 MG PO DAILY, (Reported) TAKE WITH A MEAL Metoprolol Tartrate 50 Mg Tablet, 50 MG PO BID, (Reported) Ondansetron HCl 4 Mg Tablet, 4 MG PO Q6H PRN for NAUSEA/VOMITING-1ST LINE, ( Reported) Oxycodone HCl/Acetaminophen 1 Each Tablet, 1 EACH PO Q4H PRN for PAIN-MODERATE TO SEVERE Prescribed by: JUAREZ CLAY on 05/05/18941 Polyethylene Glycol 3350 17 Gm Powd.pack, 17 GM PO PRN PRN for CONSTIPATION-1ST LINE, (Reported) Potassium Chloride 20 Meq Tab.er.prt, 40 MEQ PO Q48H, (Reported) TAKES 2 (20MEQ) TABLETS EVERY OTHER DAY WITH FUROSEMIDE Tamsulosin HCl 0.4 Mg Cap, 0.4 MG PO DAILY, (Reported) Tramadol HCl 50 Mg Tablet, 50 MG PO TID, (Reported) Trazodone HCl 50 Mg Tablet, 25 MG PO HS, (Reported) Patient Home Medication List Home Medication List Reviewed: Yes Review of Systems Review of Systems Constitutional: No chills, No fever, No malaise Respiratory: No cough, No phlegm, No short of breath Cardiovascular: No chest pain, No palpitations Gastrointestinal: see HPI, abdominal pain (suprapubic pain); No constipation, No diarrhea, No loss of appetite, No melena, No nausea, No vomiting Genitourinary: see HPI; denies flank pain; hematuria (onset this AM.), pain Musculoskeletal: No back pain Skin: no symptoms reported Psychiatric/Neurological: No Symptoms Reported All Other Systemes Reviewed Negative Unless Noted: Yes (Negative excepted noted.) Past Qunavro-Mqzoks-Nqxoxo Hx Past Med/Social Hx: Reviewed and Corrections made Patient Social History Type Used: Cigarettes Former Smoker, Quit: Oct 15, 1988 2nd Hand Smoke Exposure: No Recent Foreign Travel: No Contact w/Someone Who Travel: No Recent Infectious Disease Expo: No Recent Hopitalizations: No Immunizations Up To Date Tetanus Booster (TDap): Unknown PED Vaccines UTD: No Date of Pneumonia Vaccine: Sep 05, 2014 Date of Influenza Vaccine: Aug 19, 2017 Seasonal Allergies Seasonal Allergies: No Past Medical History Surgeries: Yes (triple bypass, craniotomy for aneurysm repair, BLADDER SLING, SUPRAPUBIC CATHETER) Adenoidectomy, Appendectomy, Bladder Surgery, Cardiac, CABG, Gallbladder, Hysterectomy, Joint Replacement, Orthopedic, Tonsillectomy Respiratory: Yes Asthma Cardiac: Yes (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, 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 Neurological: Yes (HAD BRAIN SURGERY FOR ANEURYSM 2008) : No Reproductive Disorders: Yes Female Reproductive Disorders: Endometriosis [employer] History: Hysterectomy Sexually Transmitted Disease: No UTI-Chronic Gastrointestinal: No Chronic Constipation Musculoskeletal: Yes ( BILAT ROTATOR CUFF SURGERY) Degenerate Disk Disease, Arthritis, Chronic Back Pain Endocrine: Yes Diabetes, Non-Insulin dep Cataract Loss of Vision: Denies Hearing Impairment: Denies Cancer: No Psychosocial: Yes (panic disorder) Anxiety, Depression Integumentary: No Blood Disorders: No Adverse Reaction/Blood Tranf: No Family Medical History Reviewed Nursing Family Hx Cancer 09 SISTER Cancer of colon Cataract 03 MOTHER, Onset:Unknown Family history: Allergy 03 FATHER, Onset:Unknown 03 MOTHER, Onset:Unknown Family history: Arthritis 03 FATHER, Onset:Unknown 03 MOTHER, Onset:Unknown 09 SISTER, Onset:Unknown Family history: Cardiovascular disease 03 FATHER, Onset:Unknown 03 MOTHER, Onset:Unknown 09 BROTHER, Onset:Unknown 09 SISTER, Onset:Unknown Family history: Diabetes mellitus 03 MOTHER, Onset:Unknown Family history: Gastrointestinal disease 03 FATHER, Onset:Unknown Family history: Hypertension 03 MOTHER, Onset:Unknown Family history: Osteoporosis 03 MOTHER, Onset:Unknown Hearing loss 03 FATHER, Onset:Unknown Heart disease 03 FATHER, Onset:Unknown 03 MOTHER, Onset:Unknown 09 BROTHER, Onset:Unknown Hypercholesterolemia 03 MOTHER, Onset:Unknown Malignant neoplasm of lung 09 SISTER, Onset:Unknown Myocardial infarction 09 BROTHER, Onset:Unknown Parkinson's disease Stroke 03 FATHER, Onset:Unknown Thyroid disease No Family History of: Abdominal aortic aneurysm Redmon's disease Alcoholism Aphasia Chest pain Congenital heart disease Congestive heart failure Cystic fibrosis Dementia Dysphagia Family history: Alzheimer's disease Family history: Asthma Family history: Breast disease Family history: Coronary thrombosis Family history: Glaucoma Family history: Thyroid disorder Headache Hereditary disease History of - anemia History of - disorder History of - respiratory disease History of drug abuse Human immunodeficiency virus (HIV) seropositivity Infertile Kidney disease Prostate cancer Psychotic disorder Seizure disorder Tuberculosis Visual impairment No Pertinent Family Hx, Heart Disease, Diabetes Physical Exam Vital Signs Vital Signs - First Documented 09/04/18 11:16 Temp 97.8 Pulse 88 Resp 20 B/P (MAP) 156/82 (106) Pulse Ox 95 O2 Delivery Room Air Capillary Refill : Less Than 3 Seconds Height, Weight, BMI Height: 5'4.00" Weight: 165lbs. 0.0oz. [id number]; 29.3 BMI Method:Estimated General Appearance: WD/WN, no apparent distress Cardiovascular: normal peripheral pulses, regular rate, rhythm, no edema, no murmur Respiratory: lungs clear, normal breath sounds, no respiratory distress, no accessory muscle use Gastrointestinal: normal bowel sounds, distended, guarding (SUPRAPUBIC GUARDING ); No rebound; tenderness (GENERALIZED LOWER ABDOMINAL TENDERNESS), other ( suprapubic catheter noted in the lower abdomen with dried blood surrounding the insertion site. No active bleeding noted.) Back: normal inspection, no CVA tenderness Extremities: no pedal edema, no calf tenderness, normal capillary refill Neurologic/Psychiatric: alert, normal mood/affect, oriented x 3 Skin: normal color, warm/dry, other (suprapubic catheter noted in the lower abdomen with dried blood surrounding the insertion site. No active bleeding noted.) Progress/Results/Core Measures Suspected Sepsis Recent Fever Within 48 Hours: No Infection Criteria Present: None New/Unexplained Altered Menta: No Sepsis Screen: No Definite Risk SIRS Temperature:97.8 Pulse: 88 Respiratory Rate: 20 Laboratory Tests 09/04/18 11:20: White Blood Count 9.3 Blood Pressure 156 /82 Mean: 106 Laboratory Tests 09/04/18 11:20: Creatinine 0.80, Platelet Count 300, Total Bilirubin 0.6 Results/Orders Lab Results Laboratory Tests Test 09/04/18 11:20 09/04/18 11:25 Range/Units White Blood Count 9.3 4.3-11.0 10^3/uL Red Blood Count 4.62 4.35-5.85 10^6/uL Hemoglobin 13.5 11.5-16.0 G/DL Hematocrit 41 35-52 % Mean Corpuscular Volume 90 80-99 FL Mean Corpuscular Hemoglobin 29 25-34 PG Mean Corpuscular Hemoglobin Concent 33 32-36 G/DL Red Cell Distribution Width 15.4 H 10.0-14.5 % Platelet Count 300 130-400 10^3/uL Mean Platelet Volume 10.2 7.4-10.4 FL Neutrophils (%) (Auto) 71 42-75 % Lymphocytes (%) (Auto) 19 12-44 % Monocytes (%) (Auto) 7 0-12 % Eosinophils (%) (Auto) 3 0-10 % Basophils (%) (Auto) 0 0-10 % Neutrophils # (Auto) 6.6 1.8-7.8 X 10^3 Lymphocytes # (Auto) 1.7 1.0-4.0 X 10^3 Monocytes # (Auto) 0.7 0.0-1.0 X 10^3 Eosinophils # (Auto) 0.3 0.0-0.3 10^3/uL Basophils # (Auto) 0.0 0.0-0.1 10^3/uL Sodium Level 139 135-145 MMOL/L Potassium Level 4.9 3.6-5.0 MMOL/L Chloride Level 104 98-107 MMOL/L Carbon Dioxide Level 23 21-32 MMOL/L Anion Gap 12 5-14 MMOL/L Blood Urea Nitrogen 21 H 7-18 MG/DL Creatinine 0.80 0.60-1.30 MG/DL Estimat Glomerular Filtration Rate > 60 BUN/Creatinine Ratio 26 Glucose Level 140 H 70-105 MG/DL Calcium Level 9.6 8.5-10.1 MG/DL Corrected Calcium 9.7 8.5-10.1 MG/DL Total Bilirubin 0.6 0.1-1.0 MG/DL Aspartate Amino Transf (AST/SGOT) 21 5-34 U/L Alanine Aminotransferase (ALT/SGPT) 20 0-55 U/L Alkaline Phosphatase 66 40-136 U/L Total Protein 7.4 6.4-8.2 GM/DL Albumin 3.9 3.2-4.5 GM/DL Urine Color YELLOW Urine Clarity CLEAR Urine pH 7 5-9 Urine Specific [place] 1.010 L 1.016-1.022 Urine Protein 3+ H NEGATIVE Urine Glucose (UA) NEGATIVE NEGATIVE Urine Ketones NEGATIVE NEGATIVE Urine Nitrite NEGATIVE NEGATIVE Urine Bilirubin NEGATIVE NEGATIVE Urine Urobilinogen NORMAL NORMAL MG/DL Urine Leukocyte Esterase 3+ H NEGATIVE Urine RBC (Auto) 5+ H NEGATIVE Urine RBC 50-100 H /HPF Urine WBC 10-25 H /HPF Urine Squamous Epithelial Cells 2-5 /HPF Urine Crystals NONE /LPF Urine Amorphous Sediment RARE VI PHOSPHATE H /LPF Urine Bacteria FEW H /HPF Urine Casts NONE /LPF Urine Mucus NEGATIVE /LPF Urine Culture Indicated YES My Orders Orders - JENNIFER OCHOA Saline Lock/Iv-Start (09/04/18 11:49) Ct Abdomen/Pelvis W (09/04/18 11:49) Cbc With Automated Diff (09/04/18 11:49) Comprehensive Metabolic Panel (09/04/18 11:49) Ua Culture If Indicated (09/04/18 11:49) Ns Iv 1000 Ml (Sodium Chloride 0.9%) (09/04/18 11:49) Urine Culture (09/04/18 11:25) Fentanyl Injection (Sublimaze Injection (09/04/18 12:21) Iohexol Injection (Omnipaque 350 Mg/Ml 1 (09/04/18 12:30) Sodium Chloride Flush (Catheter Flush Sy (09/04/18 12:30) Ns (Ivpb) (Sodium Chloride 0.9%) (09/04/18 12:30) Pharmacy Communication (Pharmacy Communi (09/04/18 12:28) Phenazopyridine Tablet (Pyridium Tablet) (09/04/18 14:15) Cephalexin Capsule (Keflex Capsule) (09/04/18 14:15) Hydrocodone/Apap 5/325 Tablet (Lortab 5 (09/04/18 14:15) Medications Given in ED Current Medications Medications Dose Ordered Sig/Kervin Route Start Time Stop Time Status Last Admin Dose Admin Fentanyl Citrate 50 mcg ONCE ONCE IVP 09/04/18 11:30 09/04/18 11:31 DC 09/04/18 11:49 50 MCG Iohexol 100 ml ONCE ONCE IV 09/04/18 12:30 09/04/18 12:31 DC 09/04/18 12:49 100 ML Sodium Chloride 250 ml ONCE ONCE IV 09/04/18 12:30 09/04/18 12:31 DC 09/04/18 12:49 80 ML Vital Signs/I&O 09/04/18 11:16 Temp 97.8 Pulse 88 Resp 20 B/P (MAP) 156/82 (106) Pulse Ox 95 O2 Delivery Room Air Capillary Refill : Less Than 3 Seconds Blood Pressure Mean: 106 Diagnostic Imaging Diagonstic Imaging: CT Plain Films/CT/US/NM/MRI: abdomen, pelvis Comments CT ABDOMEN/PELVIS W PROCEDURE: CT abdomen and pelvis with contrast. TECHNIQUE: Multiple contiguous axial images were obtained through the abdomen and pelvis after administration of intravenous contrast. INDICATION: Pain. Indwelling suprapubic catheter. COMPARISON: 04/10/2018 FINDINGS: Included portions of the lung bases show background of emphysematous disease. There is also cardiomegaly and calcified aortic and coronary atherosclerosis. CT abdomen: Moderate amount of air and stool is present scattered throughout the colon. Normal appendix cannot be adequately identified, but there is no pericecal inflammation. Small bowel loops are nondistended. Benign appearing bilateral renal cysts are noted. Otherwise, the kidneys, adrenal glands, spleen, pancreas, and liver have a normal appearance. Note is made of large amount of reflux of injected contrast into the IVC and hepatic veins. Findings are suggestive of right heart failure. There is no loculated fluid collection, free fluid, nor free air within the abdomen. No abnormal mesenteric or retroperitoneal adenopathy is seen. There is diffuse advanced calcified aortic and arterial atherosclerosis. Note is again made of aneurysmal dilatation of the infrarenal abdominal aorta. It measures 3.6 x 3.8 cm in diameter. This is stable compared to 4 x 3.7 cm on prior study. Note is also again made of aneurysmal dilatation of the right common iliac artery as it measures 1.9 cm in diameter. 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 Fat-containing periumbilical hernia is present. Ostium measures 3.2 cm in diameter. Bony structures show age-related degenerative changes. CT pelvis: Suprapubic Askew catheter is identified. Retention balloon is in appropriate position within the urinary bladder. Urinary bladder is decompressed. Note is made of 2.5 x 1.9 cm soft tissue density within the expected location of the posterior urethra. There is no loculated fluid collection, free fluid, nor free air within the pelvis. No abnormal lymph nodes are identified. Bony structures show no acute abnormalities. IMPRESSION: 1. No new acute abnormalities are seen within the abdomen or pelvis. 2. Advanced diffuse calcified aortic atherosclerosis with aneurysmal dilatation of the infrarenal abdominal aorta. 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 3. Findings suggestive of right heart failure. 4. Fat- containing periumbilical hernia. 5. Indwelling suprapubic catheter is in appropriate position. Urinary bladder is decompressed. 6. Soft tissue density in the expected location of the posterior urethra concerning for mass. Dictated on workstation # [id number] Reviewed: Reviewed by Me (radiology report reviewed by me) Departure Impression Primary Impression: Urinary tract infection Additional Impression: Hematuria Disposition: HOME, SELF-CARE Condition: Improved Departure-Patient Inst. Decision time for Depature: 14:18 Referrals: SHANIQUE VEGA MD (PCP/Family) Primary Care Physician Patient Instructions: Acute Cystitis (DC), How to Care for Your Suprapubic Urinary Catheter Add. Discharge Instructions: All discharge instructions reviewed with patient and/or family. Voiced understanding. Medications as instructed. Continue usual home medications. Follow-up with Dr. Vega for Maribell Jones APRN tomorrow or Saturday. Call Dr. Vega's office today for appointment time. Return to the emergency department for worsened symptoms or any other concerns. Scripts Phenazopyridine HCl (Pyridium) 200 Mg Tablet 1 TAB PO TID, #6 TAB 0 Refills Prov: JENNIFER OCHOA 09/04/18 Nitrofurantoin Monohyd/M-Cryst (Macrobid 100 mg Capsule) 100 Mg Capsule 1 TAB PO BID, #14 CAP 0 Refills Prov: JENNIFER OCHOA 09/04/18 Hydrocodone/Acetaminophen (Hydrocodone-Acetamin 5-325 mg) 1 Each Tablet 1 EACH PO Q6H PRN for PAIN-MODERATE for 5 Days, #14 TAB 0 Refills Prov: JENNIFER OCHOA 09/04/18 JENNIFER OCHOA Sep 04, 2018 12:37
--- NOTE | 2018-09-04 13:29 | Diagnostic Imaging Report ---
PROCEDURE: CT abdomen and pelvis with contrast. TECHNIQUE: Multiple contiguous axial images were obtained through the abdomen and pelvis after administration of intravenous contrast. INDICATION: Pain. Indwelling suprapubic catheter. COMPARISON: 04/10/2018 FINDINGS: Included portions of the lung bases show background of emphysematous disease. There is also cardiomegaly and calcified aortic and coronary atherosclerosis. CT abdomen: Moderate amount of air and stool is present scattered throughout the colon. Normal appendix cannot be adequately identified, but there is no pericecal inflammation. Small bowel loops are nondistended. Benign appearing bilateral renal cysts are noted. Otherwise, the kidneys, adrenal glands, spleen, pancreas, and liver have a normal appearance. Note is made of large amount of reflux of injected contrast into the IVC and hepatic veins. Findings are suggestive of right heart failure. There is no loculated fluid collection, free fluid, nor free air within the abdomen. No abnormal mesenteric or retroperitoneal adenopathy is seen. There is diffuse advanced calcified aortic and arterial atherosclerosis. Note is again made of aneurysmal dilatation of the infrarenal abdominal aorta. It measures 3.6 x 3.8 cm in diameter. This is stable compared to 4 x 3.7 cm on prior study. Note is also again made of aneurysmal dilatation of the right common iliac artery as it measures 1.9 cm in diameter. 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 Fat-containing periumbilical hernia is present. Ostium measures 3.2 cm in diameter. Bony structures show age-related degenerative changes. CT pelvis: Suprapubic Askew catheter is identified. Retention balloon is in appropriate position within the urinary bladder. Urinary bladder is decompressed. Note is made of 2.5 x 1.9 cm soft tissue density within the expected location of the posterior urethra. There is no loculated fluid collection, free fluid, nor free air within the pelvis. No abnormal lymph nodes are identified. Bony structures show no acute abnormalities. IMPRESSION: 1. No new acute abnormalities are seen within the abdomen or pelvis. 2. Advanced diffuse calcified aortic atherosclerosis with aneurysmal dilatation of the infrarenal abdominal aorta. 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 3. Findings suggestive of right heart failure. 4. Fat-containing periumbilical hernia. 5. Indwelling suprapubic catheter is in appropriate position. Urinary bladder is decompressed. 6. Soft tissue density in the expected location of the posterior urethra concerning for mass. Dictated by: Dictated on workstation # [id number]
[2018-09-04] MEDS ORDERED: HYDROcodone/APAP 5 MG/325 MG (LORTAB) TAB PO ONE (14:15)
[2018-09-04] MEDS ORDERED: CEPHALEXIN 250 MG (KEFLEX) CAP PO ONE (14:15)
[2018-09-04] MEDS ORDERED: PHENAZOPYRIDINE 100 MG (PYRIDIUM) TABLET PO ONE (14:15)
[2018-09-04] MEDS ORDERED: HYDR-3812 PO (14:22)
[2018-09-04] MEDS ORDERED: PHEN-640 PO (14:22)
[2018-09-04] MEDS ORDERED: NITR-65 PO (14:22)
[2018-09-04 19:36] VITALS: BP 148/82
== END 2018-09-04 15:02 | disposition home or self-care (01) ==
LOC: EDUNIT# 11:14 → ER 11:17
DX: N39.0 Urinary tract infection, site not specified (principal); J45.909 Unspecified asthma, uncomplicated; E11.9 Type 2 diabetes mellitus without complications; F41.0 Panic disorder [episodic paroxysmal anxiety]; F32.9 Major depressive disorder, single episode, unspecified; Z82.49 Family history of ischemic heart disease and other diseases of the circulatory system; Z80.0 Family history of malignant neoplasm of digestive organs; Z87.19 Personal history of other diseases of the digestive system; Z87.440 Personal history of urinary (tract) infections; Z88.2 Allergy status to sulfonamides; Z88.8 Allergy status to other drugs, medicaments and biological substances; Z96.0 Presence of urogenital implants; Z79.51 Long term (current) use of inhaled steroids; Z79.01 Long term (current) use of anticoagulants; Z79.82 Long term (current) use of aspirin; Z79.84 Long term (current) use of oral hypoglycemic drugs; Z87.891 Personal history of nicotine dependence; Z90.89 Acquired absence of other organs; Z95.1 Presence of aortocoronary bypass graft; Z90.710 Acquired absence of both cervix and uterus
CPT/HCPCS: 36415; 74177; 80053; 81000; 85025; 87088; 96361; 96374; 96376

== ENCOUNTER → 2019-04-06 | Outpatient (CLI) | payer MEDICARE, MEDICAID ==
[~2019-04-06] MED LIST changes: +HYDR-3812 PO; +PHEN-640 PO; -POLY17PO23 PO; +POLY17PO31 PO; -ROSU20TA PO; +ROSU20TA2 PO
--- NOTE | 2019-04-06 11:47 | Diagnostic Imaging Report ---
INDICATION: Cough. TIME OF EXAM: 10:35 AM Comparison is made with prior chest from 03/12/2018. FINDINGS: There are changes of median sternotomy and CABG are noted. Lungs are clear. Pulmonary vascularity is normal. No infiltrate, effusion or pneumothorax is seen. IMPRESSION: No acute cardiopulmonary process is detected. Dictated by: Dictated on workstation # [id number]
== END ==
LOC: RAD 10:26
PROVIDERS: ATTEND Nurse Practitioner Community Health
DX: R05 Cough (principal)
CPT/HCPCS: 71046

== ENCOUNTER 2019-04-16 15:09 | Inpatient (IN) | payer MEDICARE, MEDICAID ==
[~2019-04-16] VITALS: Ht 157.5 cm; Wt 87.3 kg
[2019-04-16] VITALS (15 sets, daily range): BP systolic 94–133; BP diastolic 47–85
[~2019-04-16 15:09] MED LIST changes: -TRAZ-189 PO; +TRAZ-222 PO
--- OUTSIDE RECORDS SUMMARY | 2019-04-16 15:14 | XMS REPORT | Clinical Summary ---
Author Author [facility] Organization [facility] Address Unknown Phone Unavailable Care Team Providers Care Diversified Crops Supervisor Name Role Phone Itz Chacon MD PCP Source Comments Some departments are not documenting in the electronic medical record. If you d o not see the information that you expected, contact Release of Information in [facility] [employer] Information Management department at [phone] for further assistan ce in locating additional records.[facility] Allergies Comments Active Allergy Reactions Severity Noted Date Per MAR Sulfamethoxazole-Trimetho UNKNOWN Low 09/27/2017 prim Per MAR Diphenhydramine-Zinc UNKNOWN Low 09/27/2017 Acetate Per MAR Hydrochlorothiazide UNKNOWN Low 09/27/2017 Sulfa (Sulfonamide ITCHING Low 03/20/2017 Antibiotics) Medications End Date Status Medication Sig Dispensed Refills Start Date Active albuterol (PROAIR HFA) 90 Inhale 1 puff 0 mcg/actuation inhaler by mouth into the lungs every 4 hours as needed for Wheezing or Shortness of Breath. Shake well before use. Active traZODone (DESYREL) 50 mg Take 50 mg by 0 tablet mouth at bedtime daily. Active atorvastatin (LIPITOR) 40 Take 40 mg by 0 mg tablet mouth at bedtime daily. Active gabapentin (NEURONTIN) Take 400 mg 0 400 mg capsule by mouth three times daily. Active estradiol (ESTRACE) 0.01 Insert or 42.5 g 03/20/201 % (0.1 mg/g) vaginal Apply to 7 cream vaginal area every 7 days. Please apply in vagina three nights per week prior to bedtime Active LORazepam (ATIVAN) 0.5 mg Take 1 tablet 0 tablet by mouth every 8 hours as needed (for anxiety or bladder pain). Active aspirin 81 mg chewable Chew 81 mg by 0 tablet mouth daily. Take with food. Active ondansetron (ZOFRAN) 4 mg Take 4 mg by 0 tablet mouth every 6 hours as needed for Nausea or Vomiting. Active morphine SR (MS CONTIN; Take 30 mg by 0 ORAMORPH SR) 30 mg ER mouth every tablet 12 hours Active buPROPion XL (WELLBUTRIN Take 300 mg 0 XL) 300 mg tablet by mouth at bedtime daily. Do not crush or chew. Active furosemide (LASIX) 20 mg Take 20 mg by 0 tablet mouth every 48 hours. Active metFORMIN (GLUCOPHAGE) Take 500 mg 0 500 mg tablet by mouth daily. Active polyethylene glycol 3350 Take 17 g by 0 (GLYCOLAX; MIRALAX) 17 mouth daily. gram/dose powder Active tamsulosin (FLOMAX) 0.4 Take 0.4 mg 0 mg capsule by mouth daily. Do not crush, chew or open capsules. Take 30 minutes following the same meal each day. Active potassium chloride SR Take 40 mEq 0 (K-DUR) 20 mEq tablet by mouth every 48 hours. Take with a meal and a full glass of water. Active budesonide/formoterol Inhale 2 0 (SYMBICORT HFA) 160/4.5 puffs by mcg inhalation mouth into the lungs twice daily. Active metoprolol tartrate Take 50 mg by 0 (LOPRESSOR) 50 mg tablet mouth twice daily. Active Problems Problem Noted Date Urinary retention 09/20/2017 Overview: Added automatically from request for surgery [id number] Mixed stress and urge urinary incontinence 03/20/2017 Overview: Longstanding hx of JOE (UUI>MAXWELL), OAB, ISD, urinary retention who is s/p PVS (Solyx) by Dr. Andrews on 11/27/16; Macroplastique injection 02/12/17. Trailed [facility] without success. 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 Carlisle. Still with JOE (UUI>MAXWELL). Exam with moderate vulvovaginal atrophy, + leak with valsalva. PVR 150 mL UDS (09/19/17) with small capacity, retention, DO throughout filling until end; hypotonic bladder, no stress leak. Cystoscopy was unremarkable. L ast Assessment & Plan: - OR for SPT 10/04/17 - anticholinergic to be added once SPT placed Social History Date Tobacco Use Types Packs/Day Years Used Former Smoker Cigarettes 1 25 Smokeless Tobacco: Never Used Alcohol Use Drinks/Week oz/Week Comments No 0 Standard 0.0 drinks or equivalent Sex Assigned at Date Recorded Not on file Industry Job Start Date Occupation Not on file Not on file Not on file Travel End Travel History Travel Start No recent travel history available. Last Filed Vital Signs Time Taken Vital Sign Reading 09/27/2017 10:47 AM TRAFFIC MAINTENANCE OFFICER Blood Pressure 178/94 09/27/2017 10:47 AM TRAFFIC MAINTENANCE OFFICER Pulse 77 09/27/2017 10:47 AM TRAFFIC MAINTENANCE OFFICER Temperature 36.6 C (97.9 F) - Respiratory Rate - 09/27/2017 10:47 AM TRAFFIC MAINTENANCE OFFICER Oxygen Saturation 96% - Inhaled Oxygen - Concentration 09/27/2017 10:47 AM TRAFFIC MAINTENANCE OFFICER Weight 77.2 kg (170 lb 3.2 oz) 09/27/2017 10:47 AM TRAFFIC MAINTENANCE OFFICER Height 157.5 cm (5' 2") 09/27/2017 10:47 AM TRAFFIC MAINTENANCE OFFICER Body Mass Index 31.13 Plan of Treatment Health Maintenance Due Date Last Done Comments PHYSICAL (COMPREHENSIVE) 1944 EXAM DTAP/TDAP VACCINES (1 - 1955 Tdap) SHINGLES RECOMBINANT 1987 VACCINE (1 of 2) OSTEOPOROSIS 2002 SCREENING/MONITORING PNEUMONIA (PCV13/PPSV23) 2002 VACCINES (1 of 2 - PCV13) INFLUENZA VACCINE 08/18/2019 08/06/2013 Results Not on filefrom Last 3 Months Insurance Type Payer Benefit Subscriber ID Effective Phone Address Plan / Dates Group Medicare MEDICARE MEDICARE xxxxxxxxxx 1989-P PART A AND resent B Medicaid [employer] [employer] xxxxxxxxxxx 2010- [facility] Present HEALTH Advance Directives Patient has advance care planning documents on file. For more information, blanka talamantes contact: [facility] [address] [place] [address]
--- OUTSIDE RECORDS SUMMARY | 2019-04-16 15:15 | XMS REPORT ---
Author Author Migration, Doctor Organization [facility] Address Unknown Phone Unavailable Care Team Providers Care Certified Massage Therapist Name Role Phone Migration, Doctor Unavailable Unavailable PROBLEMS Type Condition ICD9-CM Code MHL11-BC Code Onset Dates Condition Status SNOMED Code Problem Coronary artery disease I25.10 Active 94564020 Problem Hypertension I10 Active 75809834 Problem Other chronic pain G89.29 Active 24144707 Problem Hyperlipidemia E78.5 Active 72169181 Problem Type 2 diabetes mellitus without complication, without long-term current use of insulin E11.9 Active 072890069 Problem Low back pain M54.5 Active 628456694 Problem Pharyngeal dysphagia R13.13 Active 06089722110257 Problem Anxiety F41.9 Active 08197310 Problem Peripheral vascular disease I73.9 Active 181078899 Problem Suprapubic catheter Z93.59 Active 954351453 Problem Reactive depression F32.9 Active 69600499 Problem Neurogenic bladder N31.9 Active 029994743 Problem Ventral hernia without obstruction or gangrene K43.9 Active 946022843 Problem Insomnia G47.00 Active 001761853 Problem Paroxysmal atrial fibrillation I48.0 Active 267537835 Problem 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 Active 07143422 Problem Encounter for suprapubic catheter care Z43.5 Active [id number] ALLERGIES No Information ENCOUNTERS Encounter Location Date Diagnosis [facility] [address] [facility] [place] [id number] Jun, [facility] [address] [facility] [place] [id number] March, Bronchitis J40 [facility] [address] [id number], [place] [address] March, Cough R05 [facility] [address] [id number], [place] [address] March, Other chronic pain G89.29 [facility] [address] [id number], [place] [address] March, Anxiety F41.9 [facility] [address] [facility] [id number], [place] [address] March, [facility] [address] [facility] [id number] [place] [address] Feb, Other chronic pain G89.29 [facility] [id number] [place] [address] Feb, Anxiety F41.9 [facility] [address] [facility] [id number] [place] [address] Feb, Other chronic pain G89.29 [facility] [employer] [facility] [address] [place] [id number] Feb, Neurogenic bladder N31.9 and Suprapubic catheter Z93.59 [facility] [id number] [place] [address] Jan, Anxiety F41.9 [facility] [id number] [place] [address] Dec, Anxiety F41.9 [facility] [id number] [place] [address] Dec, Other chronic pain G89.29 and Anxiety F41.9 [facility] [id number] [place] [address] Dec, Via [facility] [address] [place] [id number] Dec, Neurogenic bladder N31.9 and Suprapubic catheter Z93.59 [facility] [address] [facility] [id number] [place] [address] Nov, Other chronic pain G89.29 and Anxiety F41.9 [facility] [address] [facility] [id number] [place] [address] Nov, [facility] [address] [place] [id number] Nov, Suprapubic catheter Z93.59 [facility] [address] [facility] [id number], [place] [address] Oct, Other chronic pain G89.29 and Anxiety F41.9 [facility] [address] [id number], [place] [address] Oct, [facility] [address] [facility] [id number] [place] [address] Oct, Suprapubic catheter Z93.59 [facility] [address] [facility] [id number] [place] [address] Oct, [facility] [address] [place] [id number] Oct, [facility] [address] [facility] [id number] [place] [address] Oct, Anxiety F41.9 [facility] [address] [facility] [id number] [place] [address] Oct, Anxiety F41.9 [facility] [address] [place] [id number] Oct, Other chronic pain G89.29 [facility] [address] [facility] [id number] [place] [address] Sep, Other chronic pain G89.29 [facility] [address] [place] [id number] Sep, Suprapubic catheter Z93.59 and Cervicalgia M54.2 [facility] [address] [facility] [id number], [place] [address] Sep, [facility] [address] [facility] [id number] [place] [address] Sep, [facility] [address] [facility] [id number] [place] [address] Sep, [facility] [address] [place] [id number] Aug, Cystitis N30.90 [address] [address] [id number], [place] [address] Aug, [facility] [address] [facility] [id number], [place] [address] Aug, Other chronic pain G89.29 [place] [address] [facility] [id number], [place] [address] Aug, [facility] [address] [place] [id number] Aug, Encounter for suprapubic catheter care Z43.5 [place] [address] [facility] [id number], [place] [address] Jul, [facility] [address] [place] [id number] Jul, [place] [address] [facility] [id number], [place] [address] Jul, Other chronic pain G89.29 [place] [address] [facility] [id number], [place] [address] Jul, [place] [address] [facility] [id number], [place] [address] Jul, [facility] [address] [place] [id number] Jun, 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 [place] [address] [facility] [id number], [place] [address] Jun, Other chronic pain G89.29 [place] [address] [id number], [place] [address] Jun, [facility] [employer] [facility] [address] [place] [id number] May, Anxiety F41.9 ; Type 2 diabetes mellitus without complication, without long-term current use of insulin E11.9 ; Hypertension I10 ; Low back pain M54.5 ; Paroxysmal atrial fibrillation I48.0 and 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 [place] [address] [facility] [id number], [place] [address] May, Other chronic pain G89.29 [facility] [address] [place] [id number] May, Low back pain M54.5 [facility] [address] [id number], [place] [address] May, [facility] [address] [id number], [place] [address] Apr, Other chronic pain G89.29 [facility] [address] [id number], [place] [address] Apr, [facility] [address] [facility] [id number] [place] [address] Apr, [facility] [address] [place] [id number] 19 Apr, 2018 Closed compression fracture of L3 lumbar vertebra with routine healing, subsequent encounter S32.030D [facility] [address] [place] [id number] 14 Apr, 2018 Low back pain M54.5 [facility] [address] [place] [id number] Apr, Coccydynia M53.3 [facility] [address] [facility] [id number], [place] [address] March, [facility] [address] [id number], [place] [address] March, Other chronic pain G89.29 [facility] [address] [id number], [place] [address] March, [facility] [address] [facility] [id number], [place] [address] March, [facility] [address] [facility] [id number], [place] [address] Feb, [facility] [address] [facility] [id number], [place] [address] Feb, Other chronic pain G89.29 [facility] [address] [place] [id number] Feb, Other chronic pain G89.29 and Anxiety F41.9 [facility] [address], [place] [address] Feb, [facility] [address], [place] [address] Jan, [facility] [id number] [place] [address] Jan, [facility] [id number] [place] [address] Jan, [facility] [id number] [place] [address] Jan, [facility] [id number] [place] [address] Dec, [facility] [address] [place] [id number] Dec, Peripheral vascular disease I73.9 ; 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 ADRIENNE SANCHEZ [id number] [place] [address] Nov, [facility] [address] [id number] [id number] Nov, Anxiety F41.9 [facility] [address] [facility] [id number], [place] [address] Nov, [facility] [id number][place] [address] Nov, Anxiety F41.9 [facility] [address] [place] [id number] Nov, Status post surgery Z98.890 ; Confused R41.0 ; Anxiety F41.9 and Other chronic pain G89.29 [facility] [address] [id number][place] [address] Nov, Other chronic pain G89.29 [facility] [address] [facility] [id number], [place] [address] Oct, [facility] [address] [id number] [id number] Oct, Other chronic pain G89.29 [facility] [address] [facility] [id number], [place] [address] Oct, Anxiety F41.9 [facility] [id number] [place] [id number] Sep, Other chronic pain G89.29 [facility] [id number], [place] [id number] Sep, [facility] [address] [place] [id number] Aug, Dysuria R30.0 and Anxiety F41.9 [facility] [address], [place] [address] Aug, [facility] [id number] [place] [id number] Aug, Other chronic pain G89.29 [facility] [address]005[address]100[place], [place] [address] Jul, Other chronic pain G89.29 [facility] [id number], [place] [id number] Jun, [facility] [address] [id number], [place] [id number] Jun, Other chronic pain G89.29 [facility] [address] [facility] [id number], [place] [address] Jun, [facility] [address] [id number], [place] [address] May, Other chronic pain G89.29 [facility] [address] [id number], [place] [address] Apr, Other chronic pain G89.29 [facility] [address] [place] [id number] Apr, Reactive depression F32.9 and Pharyngeal dysphagia R13.13 [facility] [address]00565100[place], [place] [address] Apr, Urinary tract infection without hematuria, site unspecified N39.0 [facility] [address]00565100[place], [place] [address] March, Other chronic pain G89.29 [facility] [address] [id number], [place] [address] Feb, Other chronic pain G89.29 [facility] [address]100[place], [place] [address] Feb, [facility] [id number] [place] [id number] Feb, [facility] [facility] [address] [id number] Feb, Dysuria R30.0 and Ventral hernia without obstruction or gangrene K43.9 [facility] [address]00565100[place], [place] [address] Jan, Other chronic pain G89.29 [facility] [id number], [place] [id number] Dec, Other chronic pain G89.29 [facility] [address] [id number], [place] [address] Nov, Other chronic pain G89.29 [facility] [employer] [facility] [address] [place] [id number] Nov, Lymphadenitis I88.9 [facility] [address] [id number], [place] [address] Nov, Other chronic pain G89.29 [facility] [id number] [place] [address] Nov, [facility] [id number] [place] [id number] Nov, Other chronic pain G89.29 [facility] [address] [place] [id number] Oct, Low back pain M54.5 ; Hypertension I10 and Type 2 diabetes mellitus without complication, without long-term current use of insulin E11.9 [facility] [id number] [place] [address] Oct, [facility] [id number] [place] [address] Oct, [facility] [id number] [place] [address] Oct, [facility] [id number] [place] [address] Oct, [facility] [id number] [place] [address] Sep, [facility] [id number] [place] [address] Sep, [facility] [id number] [place] [address] Aug, Other chronic pain G89.29 [facility] [address]00565100[place], [place] [address] Jul, [facility] [address]00565100[place], [place] [address] Jul, [facility] [id number] [place] [address] Jul, [facility] [address]00565100[place], [place] [address] Jun, [facility] [id number] [place] [address] Jun, [facility] [address] [facility] [place] [id number] Jun, Low back pain M54.5 ; Other chronic pain G89.29 and Coronary artery disease I25.10 [facility] [address]00565100[place], [place] [address] Jun, [facility] [id number] [place] [address] May, [facility] [id number] [place] [address] May, [facility] [id number] [place] [address] May, Other chronic pain G89.29 [facility] [id number] [place] [address] May, [facility] [id number] [place] [address] Apr, [facility] [id number] [place] [address] Apr, Acute cystitis without hematuria N30.00 [facility] [address] [place] [address] 16 Apr, 2016 Acute cystitis without hematuria N30.00 ; Coronary artery disease I25.10 ; Low back pain M54.5 and Other chronic pain G89.29 [facility] [address]65100[place], [place] [address] Apr, Other chronic pain G89.29 [facility] [id number] [place] [address] March, Other chronic pain G89.29 [facility] [address]00565100[place], [place] [address] Feb, [facility] [id number] [place] [address] Feb, Arthritis M19.90 [facility] [address]00565100[place], [place] [address] Feb, [facility] [id number] [place] [address] 30 Jan, 2016 [facility] [address] [id number], [place] [address] Jan, [facility] [id number] [place] [address] Jan, Other chronic pain G89.29 [facility] [id number] [place] [address] Jan, Hypertension I10 ; Coronary artery disease I25.10 and Insomnia G47.00 [facility] [address] [id number], [place] [address] Jan, [facility] [id number] [place] [address] Dec, Right hip pain M25.551 [facility] [address] [id number], [place] [address] Dec, [facility] [address] [id number], [place] [address] Dec, [facility] [address]100[place], [place] [address] Dec, [facility] [address] [id number], [place] [address] Dec, Other chronic pain G89.29 [facility] [address]65100[place], [place] [address] Dec, [facility] [address]100[place], [place] [address] Nov, [facility] [address]100[place], [place] [address] Nov, Other chronic pain G89.29 [facility] [address]100[place], [place] [address] Nov, Right hip pain M25.551 and Coronary artery disease I25.10 [facility] [address] [id number], [place] [address] Nov, Other chronic pain G89.29 [facility] [id number] [place] [address] Oct, [facility] [id number] [place] [address] Oct, [facility] [id number] [place] [address] Sep, [facility] [id number] [place] [address] Sep, [facility] [id number] [place] [address] Aug, [facility] [id number] [place] [address] Aug, Hypertension I10 ; Coronary artery disease I25.10 and Arthritis M19.90 [facility] [address] [id number], [place] [address] Jun, [facility] [id number] [place] [address] Jun, Essential hypertension, benign 401.1 ; Other chronic pain 338.29 and Chronic airway obstruction, not elsewhere classified 496 [facility] [address] [id number], [place] [address] Jun, [facility] [id number] [place] [address] Jun, [facility] [address] [id number], [place] [address] Jun, [facility] [address] [id number] [address] May, [facility] [address] [id number] [place] [address] May, [facility] [address] [id number] [place] [address] Apr, [facility] [address] [id number] [place] [address] Apr, [facility] [address] [id number] [place] [address] Apr, [facility] [address] [id number] [place] [address] March, [facility] [address] [id number] [place] [address] March, [facility] [address] [id number] [place] [address] March, [facility] [address] [id number] [place] [address] March, [facility] [address] [id number] [place] [address] March, Sialadenitis 527.2 [facility] [address] [facility] [id number] [place] [address] Feb, [facility] [address] [id number] [place] [address] Feb, [facility] [address] [id number] [place] [address] 29 Feb, 2015 [facility] [address] [id number] [place] [address] 14 Feb, 2015 [facility] [address] [id number] [place] [address] Feb, [facility] [address] [id number] [place] [address] Jan, [facility] [place] [facility] [address] [id number] [place] [address] Jan, [facility] [place] [facility] [address] [id number] [place] [address] Jan, [facility] [place] [facility] [address] [id number] [place] [address] Jan, [facility] [place] [facility] [address] [id number] [place] [address] Jan, [facility] [place] [facility] [address] [id number] [place] [address] Jan, [facility] [place] [facility] [address] [id number] [place] [address] Dec, 2014 [facility] [place] [facility] [address] [id number] [place] [address] Dec, [facility] [place] [facility] [address] [id number] [place] [address] Dec, 2014 [facility] [place] [facility] [address] [id number] [place] [address] Dec, [facility] [place] [facility] [address] [id number] [place] [address] Dec, [facility] [place] [facility] [address] [id number] [place] [address] Dec, [facility] [place] [facility] [address] [id number] [place] [address] Nov, [facility] [place] [facility] [address] [id number] [place] [address] Nov, [facility] [place] [facility] [address] [id number] [place] [address] Nov, [facility] [place] [facility] [address] [id number] [place] [address] Nov, [facility] [place] [facility] [address] [id number] [place] [address] Nov, [facility] [address] [id number] [place] [address] Nov, [facility] [address] [id number] [place] [address] Nov, [facility] [address] [id number] [place] [address] Nov, [facility] [address] [id number] [place] [address] Nov, [facility] [address] [id number] [place] [address] Nov, [facility] [address] [id number] [place] [address] Nov, [facility] [address] [id number] [place] [address] Nov, [facility] [address] [id number] [place] [address] Nov, [facility] [address] [id number] [place] [address] Nov, [facility] [address] [id number] [place] [address] Oct, [facility] [address] [id number] [place] [address] Oct, [facility] [address] [id number] [place] [address] Oct, [facility] [place] [facility] [address] [id number] [place] [address] 18 Oct, 2014 [facility] [place] [facility] [address] [id number] [place] [address] 18 Oct, 2014 [facility] [address] [id number] [place] [address] Oct, [facility] [place] [facility] [address] [id number] [place] [address] Oct, [facility] [place] [facility] [address] [id number] [place] [address] Oct, [facility] [place] [facility] [address] [id number] [place] [address] Oct, [facility] [place] [facility] [address] [id number] [place] [address] Sep, [facility] [place] [facility] [address] [id number] [place] [address] Sep, [facility] [place] [facility] [address] [id number] [place] [address] Sep, [facility] [place] [facility] [address] [id number] [place] [address] Sep, [facility] [place] [facility] [address] [id number] [place] [address] Sep, [facility] [place] [facility] [address] [id number] [place] [address] Sep, [facility] [place] [facility] [address] [id number] [place] [address] Sep, [facility] [place] [facility] [address] [id number] [place] [address] Sep, [facility] [place] [facility] [address] [id number] [address] Sep, [facility] [place] [facility] [address] [id number] [place] [address] Sep, [facility] [place] [facility] [address] [id number] [place] [address] Sep, [facility] [place] [facility] [address] [id number] [place] [address] Sep, [facility] [place] [facility] [address] [id number], [place] [address] 30 Aug, 2013 [facility] [place] [facility] [address] [id number] [place] [address] 30 Aug, 2013 [facility] [place] [facility] [address] [id number] [place] [address] 29 Aug, 2014 [facility] [place] [facility] [address] [id number] [place] [address] 29 Aug, 2014 [facility] [place] [facility] [address] [id number] [place] [address] 28 Aug, 2014 [facility] [place] [facility] [address] [id number] [place] [address] 28 Aug, 2014 [facility] [place] [facility] [address] [id number] [place] [address] Aug, [facility] [place] [facility] [address] [facility] [id number] [place] [address] 17 Aug, 2013 [facility] [place] [facility] [address] [id number] [place] [address] 30 Sep, 2013 [facility] [place] [facility] [address] [id number] [place] [address] 30 Sep, 2013 [facility] [place] [facility] [address] [facility] [id number] [place] [address] 30 Sep, 2013 [facility] [place] [facility] [address] [id number], [place] [address] 30 Sep, 2013 [facility] [place] [facility] [address] [id number], [place] [address] 25 Sep, 2013 [facility] [place] [facility] [address] [id number] [place] [address] 25 Sep, 2013 [facility] [place] [facility] [address] [facility] [id number], [place] [address] 15 Sep, 2013 [facility] [place] [facility] [address] [facility] [id number] [place] [address] 15 Sep, 2013 [facility] [place] [facility] [address] [id number] [place] [address] Jul, [facility] [place] [facility] [address] [id number] [place] [address] Jul, [facility] [place] [facility] [address] [id number] [place] [address] Jun, [facility] [place] [facility] [address] [id number] [place] [address] Jun, [facility] [place] [facility] [address] [id number] [place] [address] Jun, [facility] [place] [facility] [address] [id number] [place] [address] Jun, [facility] [place] [facility] [address] [id number] [place] [address] Jun, [facility] [place] [facility] [address] [id number] [place] [address] Jun, [facility] [place] [facility] [address] [id number] [place] [address] Jun, [facility] [place] [facility] [address] [id number] [place] [address] Jun, [facility] [place] [facility] [address] [id number] [place] [address] Jun, [facility] [place] [facility] [address] [id number] [place] [address] Jun, [facility] [place] [facility] [address] [id number] [place] [address] Jun, [facility] [place] [facility] [address] [id number] [place] [address] Jun, [facility] [place] [facility] [address] [id number] [place] [address] Jun, [facility] [place] [facility] [address] [id number] [place] [address] Jun, [facility] [place] [facility] [address] [id number] [place] [address] Jun, [facility] [place] [facility] [address] [id number] [place] [address] Jun, [facility] [place] [facility] [address] [id number] [place] [address] Jun, [facility] [place] [facility] [address] [id number] [place] [address] Jun, [facility] [place] [facility] [address] [id number] [place] [address] Jun, [facility] [place] [facility] [address] [id number] [place] [address] Jun, [facility] [place] [facility] [address] [id number] [place] [address] Jun, [facility] [place] [facility] [address] [id number] [place] [address] Jun, [facility] [place] [facility] [address] [id number] [place] [address] May, [facility] [place] [facility] [address] [id number] [place] [address] May, [facility] [place] [facility] [address] [id number] [place] [address] May, [facility] [place] [facility] [address] [id number] [place] [address] May, [facility] [place] [facility] [address] [id number] [place] [address] May, [facility] [place] [facility] [address] [id number] [place] [address] May, [facility] [place] [facility] [address] [id number] [place] [address] May, [facility] [place] [facility] [address] [id number] [place] [address] May, [facility] [place] [facility] [address] [id number] [place] [address] May, [facility] [place] [facility] [address] [id number] [place] [address] May, [facility] [place] [facility] [address] [id number] [place] [address] May, [facility] [place] [facility] [address] [id number] [place] [address] May, [facility] [place] [facility] [address] [id number] [place] [address] May, [facility] [place] [facility] [address] [id number] [place] [address] Apr, [facility] [place] [facility] [address] [id number] [place] [address] Apr, [facility] [place] [facility] [address] [id number] [place] [address] Apr, [facility] [place] [facility] [address] [id number] [place] [address] Apr, [facility] [place] [facility] [address] [id number] [place] [address] Apr, [facility] [place] [facility] [address] [id number] [place] [address] Apr, [facility] [place] [facility] [address] [id number] [place] [address] Apr, [facility] [place] [facility] [address] [id number] [place] [address] Apr, [facility] [place] [facility] [address] [id number] [place] [address] Apr, [facility] [place] [facility] [address] [id number] [place] [address] March, [facility] [place] [facility] [address] [id number] [place] [address] March, [facility] [address] [id number] [place] [address] March, [facility] [address] [id number] [place] [address] March, [facility] [address] [id number] [place] [address] March, [facility] [address] [id number] [place] [address] March, [facility] [address] [id number] [place] [address] March, [facility] [address] [id number] [place] [address] March, [facility] [address] [id number] [place] [address] March, [facility] [address] [id number] [place] [address] March, [facility] [address] [id number] [place] [address] March, [facility] [address] [id number] [place] [address] March, [facility] [place] [facility] [address] [id number] [place] [address] March, [facility] [place] [facility] [address] [id number] [place] [address] March, [facility] [place] [facility] [address] [id number] [place] [address] March, [facility] [place] [facility] [address] [id number] [place] [address] March, [facility] [place] [facility] [address] [id number] [place] [address] March, [facility] [place] [facility] [address] [id number] [place] [address] March, [facility] [place] [facility] [address] [id number] [place] [address] March, [facility] [place] [facility] [address] [id number] [place] [address] March, [facility] [place] [facility] [address] [id number] [place] [address] Feb, [facility] [place] [facility] [address] [id number] [place] [address] Feb, [facility] [place] [facility] [address] [id number] [place] [address] Feb, [facility] [place] [facility] [address] [id number] [place] [address] Feb, [facility] [place] [facility] [address] [id number] [place] [address] Feb, [facility] [place] [facility] [address] [id number] [place] [address] Feb, [facility] [place] [facility] [address] [id number] [place] [address] Feb, [facility] [place] [facility] [address] [id number] [place] [address] Feb, [facility] [place] [facility] [address] [id number] [place] [address] Jan, [facility] [place] [facility] [address] [id number] [place] [address] Jan, [facility] [place] [facility] [address] [id number] [place] [address] Jan, [facility] [place] [facility] [address] [id number] [place] [address] Jan, [facility] [place] [facility] [address] [id number] [place] [address] 13 Jan, 2014 [facility] [place] [facility] [address] [id number] [place] [address] Jan, [facility] [place] [facility] [address] [id number] [place] [address] Jan, [facility] [place] [facility] [address] [id number] [place] [address] Jan, [facility] [place] [facility] [address] [id number] [place] [address] Jan, [facility] [place] [facility] [address] [id number] [place] [address] Jan, [facility] [place] [facility] [address] [facility] [id number] [place] [address] 27 Dec, 2013 [facility] [place] [facility] [address] [id number] [place] [address] Dec, [facility] [place] [facility] [address] [id number] [place] [address] Dec, [facility] [place] [facility] [address] [facility] [id number] [place] [address] 2013 [facility] [place] [facility] [address] [facility] [id number] [place] [address] 2013 [facility] [place] [facility] [address] [facility] [id number] [place] [address] Dec, [facility] [place] [facility] [address] [id number] [place] [address] Dec, [facility] [place] [facility] [address] [id number] [place] [address] Dec, [facility] [place] [facility] [address] [facility] [id number] [place] [address] Nov, [facility] [place] [facility] [address] [id number] [place] [address] Nov, [facility] [place] [facility] [address] [id number] [place] [address] Nov, [facility] [place] [facility] [address] [id number] [place] [address] Nov, [facility] [place] [facility] [address] [id number] [place] [address] Nov, [facility] [place] [facility] [address] [id number] [place] [address] Nov, [facility] [place] [facility] [address] [id number] [place] [address] Nov, [facility] [place] [facility] [address] [id number] [place] [address] Nov, [facility] [place] [facility] [address] [id number] [place] [address] Nov, [facility] [place] [facility] [address] [id number] [place] [address] Nov, [facility] [place] [facility] [address] [id number] [place] [address] Nov, [facility] [place] [facility] [address] [id number] [place] [address] Nov, [facility] [place] [facility] [address] [id number] [place] [address] Nov, [facility] [place] [facility] [address] [id number] [place] [address] Oct, [facility] [place] [facility] [address] [id number] [place] [address] Oct, [facility] [place] [facility] [address] [id number] [place] [address] Oct, [facility] [place] [facility] [address] [id number] [place] [address] Oct, [facility] [place] [facility] [address] [id number] [place] [address] 23 Oct, 2013 [facility] [address] [id number] [place] [address] Oct, [facility] [address] [id number] [place] [address] 18 Oct, 2013 [facility] [address] [id number] [place] [address] 18 Oct, 2013 [facility] [address] [id number] [place] [address] Oct, [facility] [address] [id number] [place] [address] Oct, [facility] [address] [id number] [place] [address] Oct, [facility] [address] [id number] [place] [address] Oct, [facility] [address] [id number] [place] [address] Oct, [facility] [address] [id number] [place] [address] Oct, [facility] [address] [id number] [place] [address] 14 Sep, 2013 [facility] [address] [id number] [place] [address] 14 Sep, 2013 [facility] [address] [id number] [place] [address] 05 Sep, 2013 [facility] [address] [id number] [place] [address] 05 Sep, 2013 [facility] [address] [id number] [place] [address] Sep, [facility] [address] [id number] [place] [address] Sep, [facility] [place] [facility] [address] [id number] [place] [address] Sep, [facility] [place] [facility] [address] [id number] [place] [address] Sep, [facility] [place] [facility] [address] [id number] [place] [address] Sep, [facility] [place] [facility] [address] [id number] [place] [address] Sep, [facility] [place] [facility] [address] [id number] [place] [address] Aug, [facility] [place] [facility] [address] [id number] [place] [address] Aug, [facility] [place] [facility] [address] [id number] [place] [address] Aug, [facility] [place] [facility] [address] [id number], [place] [address] Aug, [facility] [place] [facility] [address] [id number], [place] [address] Aug, [facility] [place] [facility] [address] [id number], [place] [address] Aug, [facility] [place] [facility] [address] [id number], [place] [address] Aug, [facility] [place] [facility] [address] [id number], [place] [address] Aug, [facility] [place] [facility] [address] [id number], [place] [address] Aug, [facility] [place] [facility] [address] [id number], [place] [address] Aug, [facility] [place] [facility] [address] [id number], [place] [address] Aug, [facility] [place] [facility] [address] [id number], [place] [address] 18 Aug, 2013 [facility] [place] [facility] [address] [id number] [place] [address] 18 Aug, 2012 [facility] [place] [facility] [address] [id number] [place] [address] 18 Aug, 2013 [facility] [place] [facility] [address] [id number] [place] [address] 17 Aug, 2013 [facility] [place] [facility] [address] [id number] [place] [address] 14 Aug, 2013 [facility] [place] [facility] [address] [id number] [place] [address] 14 Aug, 2013 [facility] [place] [facility] [address] [id number] [place] [address] 01 Aug, 2013 [facility] [place] [facility] [address] [id number] [place] [address] 20 Jul, 2013 [facility] [place] [facility] [address] [id number] [place] [address] 19 Jul, 2013 [facility] [place] [facility] [address] [id number] [place] [address] 18 Jul, 2013 [facility] [place] [facility] [address] [id number] [place] [address] 11 Jul, 2013 [facility] [place] [facility] [address] [id number] [place] [address] 11 Jul, 2012 [facility] [place] [facility] [address] [id number], [place] [address] 28 Jun, 2013 [facility] [place] [facility] [address] [id number] [place] [address] Jun, [facility] [place] [facility] [address] [id number] [place] [address] Jun, [facility] [place] [facility] [address] [id number] [place] [address] 15 Jun, 2013 [facility] [place] [facility] [address] [id number] [place] [address] Jun, [facility] [place] [facility] [address] [id number] [place] [address] Jun, [facility] [place] [facility] [address] [id number] [place] [address] Jun, [facility] [place] [facility] [address] [id number] [place] [address] Jun, [facility] [place] [facility] [address] [id number] [place] [address] Jun, [facility] [place] [facility] [address] [id number] [place] [address] Jun, [facility] [place] [facility] [address] [id number] [place] [address] May, [facility] [place] [facility] [address] [id number] [place] [address] May, [facility] [place] [facility] [address] [id number] [place] [address] May, [facility] [place] [facility] [address] [id number] [place] [address] May, [facility] [place] [facility] [address] [id number] [place] [address] May, [facility] [place] [facility] [address] [id number] [place] [address] May, [facility] [place] [facility] [address] [id number] [place] [address] May, [facility] [place] [facility] [address] [id number] [place] [address] May, [facility] [place] [facility] [address] [id number] [place] [address] May, [facility] [place] [facility] [address] [id number] [place] [address] Apr, [facility] [address] [id number] [place] [address] Apr, [facility] [place] [facility] [address] [id number] [place] [address] Apr, [facility] [place] [facility] [address] [id number] [place] [address] Apr, [facility] [place] [facility] [address] [id number] [place] [address] Apr, [facility] [address] [id number] [place] [address] Apr, [facility] [place] [facility] [address] [id number] [place] [address] Apr, [facility] [place] [facility] [address] [id number] [place] [address] March, [facility] [place] [facility] [address] [id number] [place] [address] Feb, [facility] [place] [facility] [address] [id number] [place] [address] Feb, [facility] [place] [facility] [address] [id number] [place] [address] Feb, [facility] [place] [facility] [address] [id number], [place] [address] Jan, [facility] [place] [facility] [address] [id number], [place] [address] Jan, [facility] [place] [facility] [address] [id number] [place] [address] 19 Jan, 2013 [facility] [place] [facility] [address] [id number], [place] [address] 14 Jan, 2013 [facility] [place] [facility] [address] [id number] [place] [address] 12 Jan, 2013 [facility] [place] [facility] [address] [id number] [place] [address] 08 Jan, 2013 [facility] [address] [id number] [place] [address] 07 Jan, 2013 [facility] [place] [facility] [address] [id number] [place] [address] 04 Jan, 2013 [facility] [place] [facility] [address] [id number] [place] [address] 28 Dec, 2012 [facility] [place] [facility] [address] [id number] [place] [address] 25 Dec, 2012 [facility] [place] [facility] [address] [id number] [place] [address] 13 Dec, 2012 [facility] [place] [facility] [address] [id number] [place] [address] 11 Dec, 2012 [facility] [place] [facility] [address] [id number] [place] [address] 07 Dec, 2012 [facility] [place] [facility] [address] [id number] [place] [address] 06 Dec, 2012 [facility] [place] [facility] [address] [id number] [place] [address] 05 Dec, [address] [facility] [place] [facility] [address] [id number] [place] [address] 31 Nov, 2012 [facility] [place] [facility] [address] [id number] [place] [address] 24 Nov, 2012 [facility] [place] [facility] [address] [id number] [place] [address] 18 Nov, 2012 [facility] [place] [facility] [address] [id number] [place] [address] 15 Nov, 2012 [facility] [place] [facility] [address] [id number] [place] [address] 10 Nov, 2012 [facility] [place] [facility] [address] [id number] [place] [address] Nov, [facility] [place] [facility] [address] [id number] [place] [address] Nov, [facility] [place] [facility] [address] [id number] [place] [address] Oct, [facility] [place] [facility] [address] [id number] [place] [address] Oct, [facility] [place] [facility] [address] [id number] [place] [address] Oct, [facility] [place] [facility] [address] [id number] [place] [address] Oct, [facility] [place] [facility] [address] [id number] [place] [address] Oct, [facility] [place] [facility] [address] [id number] [place] [address] Oct, [facility] [place] [facility] [address] [id number] [place] [address] Oct, [facility] [place] [facility] [address] [id number] [place] [address] Oct, [facility] [place] [facility] [address] [id number] [place] [address] Oct, [facility] [place] [facility] [address] [id number] [place] [address] Oct, [facility] [place] [facility] [address] [id number], [place] [address] Oct, [facility] [place] [facility] [address] [id number] [place] [address] Oct, [facility] [place] [facility] [address] [id number] [place] [address] Sep, [facility] [place] [facility] [address] [id number] [place] [address] Sep, [facility] [place] [facility] [address] [id number] [place] [address] Sep, [facility] [place] [facility] [address] [id number] [place] [address] Sep, [facility] [place] [facility] [address] [id number] [place] [address] Sep, [facility] [place] [facility] [address] [id number] [place] [address] Sep, [facility] [place] [facility] [address] [id number] [place] [address] Sep, [facility] [place] [facility] [address] [id number] [place] [address] Sep, [facility] [place] [facility] [address] [id number] [place] [address] Sep, [facility] [place] [facility] [address] [id number] [place] [address] Sep, [facility] [place] [facility] [address] [id number] [place] [address] Sep, [facility] [place] [facility] [address] [id number] [place] [address] Aug, [facility] [place] [facility] [address] [facility] [id number] [place] [address] Aug, [facility] [place] [facility] [address] [id number] [place] [address] Aug, [facility] [place] [facility] [address] [id number] [address] Aug, [facility] [place] [facility] [address] [id number] [place] [address] Aug, [facility] [place] [facility] [address] [id number] [place] [address] Aug, [facility] [place] [facility] [address] [id number], [place] [address] Aug, [facility] [place] [facility] [address] [id number] [place] [address] Aug, [facility] [place] [facility] [address] [id number] [place] [address] Aug, [facility] [place] [facility] [address] [id number] [place] [address] Aug, [facility] [place] [facility] [address] [id number] [place] [address] Jul, [facility] [place] [facility] [address] [id number] [place] [address] Jul, [facility] [place] [facility] [address] [id number] [place] [address] Jul, [facility] [place] [facility] [address] [id number] [place] [address] Jul, [facility] [place] [facility] [address] [id number] [place] [address] Jun, [facility] [place] [facility] [address] [id number] [place] [address] Jun, [facility] [place] [facility] [address] [id number] [place] [address] Jun, [facility] [place] [facility] [address] [id number] [place] [address] Jun, [facility] [place] [facility] [address] [id number] [place] [address] Jun, [facility] [place] [facility] [address] [id number] [place] [address] Jun, [facility] [place] [facility] [address] [id number] [place] [address] Jun, [facility] [place] [facility] [address] [id number] [place] [address] May, [facility] [place] [facility] [address] [id number] [place] [address] May, [facility] [place] [facility] [address] [id number] [place] [address] May, [facility] [place] [facility] [address] [id number] [place] [address] May, [facility] [place] [facility] [address] [id number] [place] [address] May, [facility] [place] [facility] [address] [id number] [place] [address] Apr, [facility] [place] [facility] [address] [id number] [place] [address] Apr, [facility] [place] [facility] [address] [id number] [place] [address] Apr, [facility] [place] [facility] [address] [id number] [place] [address] Apr, [facility] [place] [facility] [address] [id number] [place] [address] Apr, [facility] [place] [facility] [address] [id number] [place] [address] March, [facility] [place] [facility] [address] [id number] [place] [address] March, [facility] [place] [facility] [address] [id number] [place] [address] March, [facility] [place] [facility] [address] [id number] [place] [address] March, [facility] [place] [facility] [address] [id number] [place] [address] March, [facility] [place] [facility] [address] [id number] [place] [address] March, [facility] [place] [facility] [address] [id number] [place] [address] March, [facility] [place] [facility] [address] [id number] [place] [address] March, [facility] [address] [id number] [place] [address] March, [facility] [address] [id number] [place] [address] March, [facility] [address] [id number] [place] [address] Feb, [facility] [address] [id number] [place] [address] Feb, [facility] [address] [id number] [place] [address] Feb, [facility] [place] [address] [id number] [place] [address] Feb, [facility] [address] [id number] [place] [address] Feb, [facility] [address] [id number] [place] [address] Feb, [facility] [address] [id number] [place] [address] Feb, [facility] [address] [id number] [place] [address] Feb, [facility] [address] [id number] [place] [address] Feb, [facility] [address] [id number] [place] [address] Jan, [facility] [address] [id number] [place] [address] Jan, [facility] [address] [id number] [place] [address] 05 Jan, 2012 [facility] [place] [address] [id number] [place] [address] Jan, [facility] [address] [id number] [place] [address] Dec, [facility] [place] [facility] [address] [id number] [place] [address] Dec, [facility] [address] [id number] [place] [address] Nov, [facility] [place] [facility] [address] [id number] [place] [address] Nov, [facility] [address] [id number] [place] [address] Nov, [facility] [place] [facility] [address] [id number] [place] [address] Nov, [facility] [address] [id number] [place] [address] Nov, [facility] [address] [id number] [place] [address] Oct, [facility] [address] [id number] [place] [address] Oct, [facility] [address] [id number] [place] [address] Oct, [facility] [place] [facility] [address] [id number] [place] [address] Oct, [facility] [place] [facility] [address] [id number] [place] [address] Oct, [facility] [place] [facility] [address] [id number] [place] [address] Oct, [facility] [place] [facility] [address] [id number] [place] [address] Oct, [facility] [place] [facility] [address] [id number] [place] [address] Oct, [facility] [place] [facility] [address] [id number] [place] [address] Sep, IMMUNIZATIONS No Known Immunizations SOCIAL HISTORY Never Assessed REASON FOR VISIT EMR-[facility] PLAN OF CARE VITAL SIGNS MEDICATIONS Unknown Medications RESULTS No Results PROCEDURES No Known procedures INSTRUCTIONS MEDICATIONS ADMINISTERED No Known Medications MEDICAL (GENERAL) HISTORY Type Description Date 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- Urosepsis, abd pain and fever, discharged 11/27/2017 11/26/2017 Hospitalization History [facility]- Went Unrepsonsive, Hit head 2017 Hospitalization History [facility]- Back Pain 05/05/2018
--- OUTSIDE RECORDS SUMMARY | 2019-04-16 15:16 | XMS REPORT ---
Author Author Migration, Doctor Organization [facility] Address Unknown Phone Unavailable Care Team Providers Care Reconnaissance Man Name Role Phone Migration, Doctor Unavailable Unavailable PROBLEMS Type Condition ICD9-CM Code YLZ10-JH Code Onset Dates Condition Status SNOMED Code Problem Coronary artery disease I25.10 Active 32397974 Problem Hypertension I10 Active 72236238 Problem Other chronic pain G89.29 Active 52475217 Problem Hyperlipidemia E78.5 Active 13611867 Problem Type 2 diabetes mellitus without complication, without long-term current use of insulin E11.9 Active 545145061 Problem Low back pain M54.5 Active 668582432 Problem Pharyngeal dysphagia R13.13 Active 65285812038915 Problem Anxiety F41.9 Active 21734580 Problem Peripheral vascular disease I73.9 Active 930915460 Problem Suprapubic catheter Z93.59 Active 744899531 Problem Reactive depression F32.9 Active 06999454 Problem Neurogenic bladder N31.9 Active 382865140 Problem Ventral hernia without obstruction or gangrene K43.9 Active 043669505 Problem Insomnia G47.00 Active 846149885 Problem Paroxysmal atrial fibrillation I48.0 Active 387774245 Problem 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 Active 60733837 Problem Encounter for suprapubic catheter care Z43.5 Active [id number] ALLERGIES No Information ENCOUNTERS Encounter Location Date Diagnosis Via [facility] [address] [place] [id number] Jun, [facility] [address] [facility] [place] [id number] March, Bronchitis J40 [facility] [address] [id number] [address] March, Cough R05 [facility] [address] [id number] [address] March, Other chronic pain G89.29 [facility] [address] [id number] [address] March, Anxiety F41.9 [facility] [address] [facility] [id number], [place] [address] March, [facility] [address] [facility] [id number] [place] [address] Feb, Other chronic pain G89.29 [facility] [id number] [place] [address] Feb, Anxiety F41.9 [facility] [address] [facility] [id number] [place] [address] Feb, Other chronic pain G89.29 Via [facility] [employer] [facility] [address] [place] [id number] Feb, Neurogenic bladder N31.9 and Suprapubic catheter Z93.59 [facility] [id number] [place] [address] Jan, Anxiety F41.9 [facility] [id number] [place] [address] Dec, Anxiety F41.9 [facility] [id number] [place] [address] Dec, Other chronic pain G89.29 and Anxiety F41.9 [facility] [address] [place] [address] Dec, Via [employer] [address] [place] [id number] Dec, Neurogenic bladder N31.9 and Suprapubic catheter Z93.59 [facility] [address] [facility] [id number] [place] [address] Nov, Other chronic pain G89.29 and Anxiety F41.9 [facility] [address] [facility] [id number] [place] [address] Nov, Via [employer] [address] [place] [id number] Nov, Suprapubic catheter Z93.59 [facility] [address] [facility] [id number], [place] [address] Oct, Other chronic pain G89.29 and Anxiety F41.9 [facility] [address] [id number], [place] [address] Oct, [facility] [address] [facility] [id number] [place] [address] Oct, Suprapubic catheter Z93.59 [facility] [address] [facility] [id number] [place] [address] Oct, Via [employer] [address] [place] [id number] Oct, [facility] [address] [facility] [id number] [place] [address] Oct, Anxiety F41.9 [facility] [address] [facility] [id number] [place] [address] Oct, Anxiety F41.9 [facility] [employer] [address] [place] [id number] Oct, Other chronic pain G89.29 [facility] [address] [facility] [id number] [place] [address] Sep, Other chronic pain G89.29 Via [employer] [address] [place] [id number] Sep, Suprapubic catheter Z93.59 and Cervicalgia M54.2 [facility] [address] [facility] [id number], [place] [address] Sep, [facility] [address] [facility] [id number] [place] [address] Sep, [facility] [address] [facility] [id number] [place] [address] Sep, Via [employer] [address] [place] [id number] Aug, Cystitis N30.90 [address] [id number], [place] [address] Aug, [facility] [address] [facility] [id number], [place] [address] Aug, Other chronic pain G89.29 [address] [facility] [id number], [place] [address] Aug, Via [employer] [address] [place] [id number] Aug, Encounter for suprapubic catheter care Z43.5 [place] [address] [facility] [id number], [place] [address] Jul, Via [employer] [address] [place] [id number] Jul, [place] [address] [facility] [id number], [place] [address] Jul, Other chronic pain G89.29 [place] [address] [facility] [id number], [place] [address] Jul, [place] [address] [facility] [id number], [place] [address] Jul, Via [employer] [address] [place] [id number] Jun, 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 [place] [address] [facility] [id number], [place] [address] Jun, Other chronic pain G89.29 [place] [address] [id number], [place] [address] Jun, Via [employer] [address] [place] [id number] May, Anxiety F41.9 ; Type 2 diabetes mellitus without complication, without long-term current use of insulin E11.9 ; Hypertension I10 ; Low back pain M54.5 ; Paroxysmal atrial fibrillation I48.0 and 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 [place] [address] [facility] [id number], [place] [address] May, Other chronic pain G89.29 Via [employer] [address] [place] [id number] May, Low back pain M54.5 [facility] [address] [id number], [place] [address] May, [facility] [address] [id number], [place] [address] Apr, Other chronic pain G89.29 [facility] [address] [id number], [place] [address] Apr, [facility] [address] [facility] [id number] [place] [address] Apr, Via [employer] [address] [place] [id number] 19 Apr, 2018 Closed compression fracture of L3 lumbar vertebra with routine healing, subsequent encounter S32.030D [facility] [employer] [address] [place] [id number] 14 Apr, 2018 Low back pain M54.5 [facility] [employer] [address] [place] [id number] Apr, Coccydynia M53.3 [facility] [address] [facility] [id number], [place] [address] March, [facility] [address] [id number], [place] [address] March, Other chronic pain G89.29 [facility] [address] [id number], [place] [address] March, [facility] [address] [facility] [id number], [place] [address] March, [facility] [address] [facility] [id number], [place] [address] Feb, [facility] [address] [facility] [id number], [place] [address] Feb, Other chronic pain G89.29 Via [facility] [address] [place] [id number] Feb, Other chronic pain G89.29 and Anxiety F41.9 [facility] [address] [address] Feb, [facility] [address], [place] [address] Jan, [facility] [id number] [place] [address] Jan, [facility] [address] [place] [address] Jan, [facility] [address] [place] [address] Jan, [facility] [address] [place] [address] Dec, Via [facility] [address] [place] [id number] Dec, Peripheral vascular disease I73.9 ; 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 ; Other chronic pain G89.29 ; Anxiety F41.9 ; Reactive depression F32.9 ; Insomnia G47.00 and Type 2 diabetes mellitus without complication, without long-term current use of insulin E11.9 [facility] ADRIENNE SANCHEZ [id number] [place] [address] Nov, [facility] [address] [id number], [place] [id number] Nov, Anxiety F41.9 [facility] [address] [facility] [id number], [place] [address] Nov, [facility] [id number], [place] [address] Nov, Anxiety F41.9 [facility] [employer] [address] [place] [address] Nov, Status post surgery Z98.890 ; Confused R41.0 ; Anxiety F41.9 and Other chronic pain G89.29 [facility] [address] [id number] [id number] Nov, Other chronic pain G89.29 [facility] [address] [facility] [id number], [place] [address] Oct, [facility] [address] [id number] [id number] Oct, Other chronic pain G89.29 [facility] [address] [facility] [id number], [place] [address] Oct, Anxiety F41.9 [facility] [id number] [place] [id number] Sep, Other chronic pain G89.29 [facility] [id number], [place] [address] Sep, Via [facility] [address] [place] [id number] Aug, Dysuria R30.0 and Anxiety F41.9 [facility] [address]100[place], [place] [address] Aug, [facility] [id number] [place] [id number] Aug, Other chronic pain G89.29 [facility] [address]100[place], [place] [address] Jul, Other chronic pain G89.29 [facility] [id number], [place] [address] Jun, [facility] [address] [id number] [address] Jun, Other chronic pain G89.29 [facility] [address] [facility] [id number], [place] [address] Jun, [facility] [address] [id number] [address] May, Other chronic pain G89.29 [facility] [address] [id number] [address] Apr, Other chronic pain G89.29 [facility] [employer] [address] [id number] Apr, Reactive depression F32.9 and Pharyngeal dysphagia R13.13 [facility] [address], [place] [address] Apr, Urinary tract infection without hematuria, site unspecified N39.0 [facility] [address], [place] [address] March, Other chronic pain G89.29 [facility] [address] [id number] [address] Feb, Other chronic pain G89.29 [facility] [address], [place] [address] Feb, [facility] [id number] [place] [id number] Feb, Via [employer] [address] [id number] Feb, Dysuria R30.0 and Ventral hernia without obstruction or gangrene K43.9 [facility] [address]100[place], [place] [address] Jan, Other chronic pain G89.29 [facility] [id number], [place] [address] Dec, Other chronic pain G89.29 [facility] [address] [id number], [place] [address] Nov, Other chronic pain G89.29 [facility] [employer] [address] [place] [id number] Nov, Lymphadenitis I88.9 [facility] [address] [id number] [address] Nov, Other chronic pain G89.29 [facility] [address] [place] [address] Nov, [facility] [id number] [place] [id number] Nov, Other chronic pain G89.29 Via [facility] [address] [place] [id number] Oct, Low back pain M54.5 ; Hypertension I10 and Type 2 diabetes mellitus without complication, without long-term current use of insulin E11.9 [facility] [address] [place] [address] Oct, [facility] [id number] [place] [address] Oct, [facility] [id number] [place] [address] Oct, [facility] [id number] [place] [address] Oct, [facility] [address] [place] [address] Sep, [facility] [address] [place] [address] Sep, [facility] [address] [place] [address] Aug, Other chronic pain G89.29 [facility] [address], [place] [address] Jul, [facility] [address]100[place], [place] [address] Jul, [facility] [address] [place] [address] Jul, [facility] [address]100[place], [place] [address] Jun, [facility] [address] [place] [address] Jun, Via [facility] [address] [facility] [place] [id number] Jun, Low back pain M54.5 ; Other chronic pain G89.29 and Coronary artery disease I25.10 [facility] [address], [place] [address] Jun, [facility] [id number] [place] [address] May, [facility] [id number] [place] [address] May, [facility] [id number] [place] [address] May, Other chronic pain G89.29 [facility] [id number] [place] [address] May, [facility] [id number] [place] [address] Apr, [facility] [id number] [place] [address] Apr, Acute cystitis without hematuria N30.00 [facility] [address] [place] [address] 16 Apr, 2016 Acute cystitis without hematuria N30.00 ; Coronary artery disease I25.10 ; Low back pain M54.5 and Other chronic pain G89.29 [facility] [address], [place] [address] Apr, Other chronic pain G89.29 [facility] [id number] [place] [address] March, Other chronic pain G89.29 [facility] [address]100[place] [address] Feb, [facility] [id number] [place] [address] Feb, Arthritis M19.90 [facility] [address]100[place], [place] [address] Feb, [facility] [id number] [place] [address] 30 Jan, 2016 [facility] [address] [id number], [place] [address] Jan, [facility] [id number] [place] [address] Jan, Other chronic pain G89.29 [facility] [id number] [place] [address] Jan, Hypertension I10 ; Coronary artery disease I25.10 and Insomnia G47.00 [facility] [address] 0881665100[place], [place] [address] Jan, [facility] [id number] [place] [address] Dec, Right hip pain M25.551 [facility] [address] [id number], [place] [address] Dec, [facility] [address] [id number], [place] [address] Dec, [facility] [address], [place] [address] Dec, [facility] [address] [id number], [place] [address] Dec, Other chronic pain G89.29 [facility] [address], [place] [address] Dec, [facility] [address], [place] [address] Nov, [facility] [address], [place] [address] Nov, Other chronic pain G89.29 [facility] [address], [place] [address] Nov, Right hip pain M25.551 and Coronary artery disease I25.10 [facility] [address] [id number], [place] [address] Nov, Other chronic pain G89.29 [facility] [id number] [place] [address] Oct, [facility] [id number] [place] [address] Oct, [facility] [id number] [place] [address] Sep, [facility] [id number] [place] [address] Sep, [facility] [id number] [place] [address] Aug, [facility] [id number] [place] [address] Aug, Hypertension I10 ; Coronary artery disease I25.10 and Arthritis M19.90 [facility] [address] [id number], [place] [address] Jun, [facility] [address] [place] [address] Jun, Essential hypertension, benign 401.1 ; Other chronic pain 338.29 and Chronic airway obstruction, not elsewhere classified 496 [facility] [address] 0881665100[place], [place] [address] Jun, [facility] [id number] [place] [address] Jun, [facility] [address] [id number], [place] [address] Jun, [facility] [address] [id number] [place] [address] May, [facility] [address] [id number] [place] [address] May, [facility] [address] [id number] [place] [address] Apr, [facility] [address] [id number] [place] [address] Apr, [facility] [address] [id number] [place] [address] Apr, [facility] [address] [id number] [place] [address] March, [facility] [address] [id number] [place] [address] March, [facility] [address] [id number] [place] [address] March, [facility] [address] [id number] [place] [address] March, [facility] [address] [id number] [place] [address] March, Sialadenitis 527.2 [facility] [address] [facility] [id number] [place] [address] Feb, [facility] [address] [id number] [place] [address] Feb, [facility] [address] [id number] [place] [address] 29 Feb, 2015 [facility] [address] [id number] [place] [address] 14 Feb, 2015 [facility] [address] [id number] [place] [address] Feb, [facility] [address] [id number] [place] [address] Jan, [facility] [place] [facility] [address] [id number] [place] [address] Jan, [facility] [place] [facility] [address] [id number] [place] [address] Jan, [facility] [place] [facility] [address] [id number] [place] [address] Jan, [facility] [place] [facility] [address] [id number] [place] [address] Jan, [facility] [place] [facility] [address] [id number] [place] [address] Jan, [facility] [place] [facility] [address] [id number] [place] [address] Dec, 2014 [facility] [place] [facility] [address] [id number] [place] [address] Dec, [facility] [place] [facility] [address] [id number] [place] [address] Dec, 2014 [facility] [place] [facility] [address] [id number] [place] [address] Dec, [facility] [place] [facility] [address] [id number] [place] [address] Dec, [facility] [place] [facility] [address] [id number] [place] [address] Dec, [facility] [place] [facility] [address] [id number] [place] [address] Nov, [facility] [place] [facility] [address] [id number] [place] [address] Nov, [facility] [place] [facility] [address] [id number] [place] [address] Nov, [facility] [place] [facility] [address] [id number] [place] [address] Nov, [facility] [place] [facility] [address] [id number] [place] [address] Nov, [facility] [address] [id number] [place] [address] Nov, [facility] [address] [id number] [place] [address] Nov, [facility] [address] [id number] [place] [address] Nov, [facility] [address] [id number] [place] [address] Nov, [facility] [address] [id number] [place] [address] Nov, [facility] [address] [id number] [place] [address] Nov, [facility] [address] [id number] [place] [address] Nov, [facility] [address] [id number] [place] [address] Nov, [facility] [address] [id number] [place] [address] Nov, [facility] [address] [id number] [place] [address] Oct, [facility] [address] [id number] [place] [address] Oct, [facility] [address] [id number] [place] [address] Oct, [facility] [place] [facility] [address] [id number] [place] [address] 18 Oct, 2014 [facility] [place] [facility] [address] [id number] [place] [address] 18 Oct, 2014 [facility] [address] [id number] [place] [address] Oct, [facility] [place] [facility] [address] [id number] [place] [address] Oct, [facility] [place] [facility] [address] [id number] [place] [address] Oct, [facility] [place] [facility] [address] [id number] [place] [address] Oct, [facility] [place] [facility] [address] [id number] [place] [address] Sep, [facility] [place] [facility] [address] [id number] [place] [address] Sep, [facility] [place] [facility] [address] [id number] [place] [address] Sep, [facility] [place] [facility] [address] [id number] [place] [address] Sep, [facility] [place] [facility] [address] [id number] [place] [address] Sep, [facility] [place] [facility] [address] [id number] [place] [address] Sep, [facility] [place] [facility] [address] [id number] [place] [address] Sep, [facility] [place] [facility] [address] [id number] [place] [address] Sep, [facility] [place] [facility] [address] [id number], [place] [address] Sep, [facility] [place] [facility] [address] [id number] [place] [address] Sep, [facility] [place] [facility] [address] [id number] [place] [address] Sep, [facility] [place] [facility] [address] [id number] [place] [address] Sep, [facility] [place] [facility] [address] [id number], [place] [address] 30 Aug, 2013 [facility] [place] [facility] [address] [id number] [place] [address] 30 Aug, 2013 [facility] [place] [facility] [address] [id number] [place] [address] 29 Aug, 2014 [facility] [place] [facility] [address] [id number] [place] [address] 29 Aug, 2014 [facility] [place] [facility] [address] [id number] [place] [address] 28 Aug, 2014 [facility] [place] [facility] [address] [id number] [place] [address] 28 Aug, 2014 [facility] [place] [facility] [address] [id number] [place] [address] Aug, [facility] [place] [facility] [address] [facility] [id number] [place] [address] 17 Aug, 2013 [facility] [place] [facility] [address] [id number] [place] [address] 30 Sep, 2013 [facility] [place] [facility] [address] [id number] [place] [address] 30 Sep, 2013 [facility] [place] [facility] [address] [facility] [id number] [place] [address] 30 Sep, 2013 [facility] [place] [facility] [address] [id number], [place] [address] 30 Sep, 2013 [facility] [place] [facility] [address] [id number], [place] [address] 25 Sep, 2013 [facility] [place] [facility] [address] [id number] [place] [address] 25 Sep, 2013 [facility] [place] [facility] [address] [facility] [id number], [place] [address] 15 Sep, 2013 [facility] [place] [facility] [address] [facility] [id number] [place] [address] 15 Sep, 2013 [facility] [place] [facility] [address] [id number] [place] [address] Jul, [facility] [place] [facility] [address] [id number] [place] [address] Jul, [facility] [place] [facility] [address] [id number] [place] [address] Jun, [facility] [place] [facility] [address] [id number] [place] [address] Jun, [facility] [place] [facility] [address] [id number] [place] [address] Jun, [facility] [place] [facility] [address] [id number] [place] [address] Jun, [facility] [place] [facility] [address] [id number] [place] [address] Jun, [facility] [place] [facility] [address] [id number] [place] [address] Jun, [facility] [place] [facility] [address] [id number] [place] [address] Jun, [facility] [place] [facility] [address] [id number] [place] [address] Jun, [facility] [place] [facility] [address] [id number] [place] [address] Jun, [facility] [place] [facility] [address] [id number] [place] [address] Jun, [facility] [place] [facility] [address] [id number] [place] [address] Jun, [facility] [place] [facility] [address] [id number] [place] [address] Jun, [facility] [place] [facility] [address] [id number] [place] [address] Jun, [facility] [place] [facility] [address] [id number] [place] [address] Jun, [facility] [place] [facility] [address] [id number] [place] [address] Jun, [facility] [place] [facility] [address] [id number] [place] [address] Jun, [facility] [place] [facility] [address] [id number] [place] [address] Jun, [facility] [place] [facility] [address] [id number] [place] [address] Jun, [facility] [place] [facility] [address] [id number] [place] [address] Jun, [facility] [place] [facility] [address] [id number] [place] [address] Jun, [facility] [place] [facility] [address] [id number] [place] [address] Jun, [facility] [place] [facility] [address] [id number] [place] [address] Jun, [facility] [place] [facility] [address] [id number] [place] [address] May, [facility] [place] [facility] [address] [id number] [place] [address] May, [facility] [place] [facility] [address] [id number] [place] [address] May, [facility] [place] [facility] [address] [id number] [place] [address] May, [facility] [place] [facility] [address] [id number] [place] [address] May, [facility] [place] [facility] [address] [id number] [place] [address] May, [facility] [place] [facility] [address] [id number] [place] [address] May, [facility] [place] [facility] [address] [id number] [place] [address] May, [facility] [place] [facility] [address] [id number] [place] [address] May, [facility] [place] [facility] [address] [id number] [place] [address] May, [facility] [place] [facility] [address] [id number] [place] [address] May, [facility] [place] [facility] [address] [id number] [place] [address] May, [facility] [place] [facility] [address] [id number] [place] [address] May, [facility] [place] [facility] [address] [id number] [place] [address] Apr, [facility] [place] [facility] [address] [id number] [place] [address] Apr, [facility] [place] [facility] [address] [id number] [place] [address] Apr, [facility] [place] [facility] [address] [id number] [place] [address] Apr, [facility] [place] [facility] [address] [id number] [place] [address] Apr, [facility] [place] [facility] [address] [id number] [place] [address] Apr, [facility] [place] [facility] [address] [id number] [place] [address] Apr, [facility] [place] [facility] [address] [id number] [place] [address] Apr, [facility] [place] [facility] [address] [id number] [place] [address] Apr, [facility] [place] [facility] [address] [id number] [place] [address] March, [facility] [place] [facility] [address] [id number] [place] [address] March, [facility] [address] [id number] [place] [address] March, [facility] [address] [id number] [place] [address] March, [facility] [address] [id number] [place] [address] March, [facility] [address] [id number] [place] [address] March, [facility] [address] [id number] [place] [address] March, [facility] [address] [id number] [place] [address] March, [facility] [address] [id number] [place] [address] March, [facility] [address] [id number] [place] [address] March, [facility] [address] [id number] [place] [address] March, [facility] [address] [id number] [place] [address] March, [facility] [place] [facility] [address] [id number] [place] [address] March, [facility] [place] [facility] [address] [id number] [place] [address] March, [facility] [place] [facility] [address] [id number] [place] [address] March, [facility] [place] [facility] [address] [id number] [place] [address] March, [facility] [place] [facility] [address] [id number] [place] [address] March, [facility] [place] [facility] [address] [id number] [place] [address] March, [facility] [place] [facility] [address] [id number] [place] [address] March, [facility] [place] [facility] [address] [id number] [place] [address] March, [facility] [place] [facility] [address] [id number] [place] [address] Feb, [facility] [place] [facility] [address] [id number] [place] [address] Feb, [facility] [place] [facility] [address] [id number] [place] [address] Feb, [facility] [place] [facility] [address] [id number] [place] [address] Feb, [facility] [place] [facility] [address] [id number] [place] [address] Feb, [facility] [place] [facility] [address] [id number] [place] [address] Feb, [facility] [place] [facility] [address] [id number] [place] [address] Feb, [facility] [place] [facility] [address] [id number] [place] [address] Feb, [facility] [place] [facility] [address] [id number] [place] [address] Jan, [facility] [place] [facility] [address] [id number] [place] [address] Jan, [facility] [place] [facility] [address] [id number] [place] [address] Jan, [facility] [place] [facility] [address] [id number] [place] [address] Jan, [facility] [place] [facility] [address] [id number] [place] [address] 13 Jan, 2014 [facility] [place] [facility] [address] [id number] [place] [address] Jan, [facility] [place] [facility] [address] [id number] [place] [address] Jan, [facility] [place] [facility] [address] [id number] [place] [address] Jan, [facility] [place] [facility] [address] [id number] [place] [address] Jan, [facility] [place] [facility] [address] [id number] [place] [address] Jan, [facility] [place] [facility] [address] [facility] [id number] [place] [address] 27 Dec, 2013 [facility] [place] [facility] [address] [id number] [place] [address] Dec, [facility] [place] [facility] [address] [id number] [place] [address] Dec, [facility] [place] [facility] [address] [facility] [id number] [place] [address] 2013 [facility] [place] [facility] [address] [facility] [id number] [place] [address] 2013 [facility] [place] [facility] [address] [facility] [id number] [place] [address] Dec, [facility] [place] [facility] [address] [id number] [place] [address] Dec, [facility] [place] [facility] [address] [id number] [place] [address] Dec, [facility] [place] [facility] [address] [facility] [id number] [place] [address] Nov, [facility] [place] [facility] [address] [id number] [place] [address] Nov, [facility] [place] [facility] [address] [id number] [place] [address] Nov, [facility] [place] [facility] [address] [id number] [place] [address] Nov, [facility] [place] [facility] [address] [id number] [place] [address] Nov, [facility] [place] [facility] [address] [id number] [place] [address] Nov, [facility] [place] [facility] [address] [id number] [place] [address] Nov, [facility] [place] [facility] [address] [id number] [place] [address] Nov, [facility] [place] [facility] [address] [id number] [place] [address] Nov, [facility] [place] [facility] [address] [id number] [place] [address] Nov, [facility] [place] [facility] [address] [id number] [place] [address] Nov, [facility] [place] [facility] [address] [id number] [place] [address] Nov, [facility] [place] [facility] [address] [id number] [place] [address] Nov, [facility] [place] [facility] [address] [id number] [place] [address] Oct, [facility] [place] [facility] [address] [id number] [place] [address] Oct, [facility] [place] [facility] [address] [id number] [place] [address] Oct, [facility] [place] [facility] [address] [id number] [place] [address] Oct, [facility] [place] [facility] [address] [id number] [place] [address] 23 Oct, 2013 [facility] [address] [id number] [place] [address] Oct, [facility] [address] [id number] [place] [address] 18 Oct, 2013 [facility] [address] [id number] [place] [address] 18 Oct, 2013 [facility] [address] [id number] [place] [address] Oct, [facility] [address] [id number] [place] [address] Oct, [facility] [address] [id number] [place] [address] Oct, [facility] [address] [id number] [place] [address] Oct, [facility] [address] [id number] [place] [address] Oct, [facility] [address] [id number] [place] [address] Oct, [facility] [address] [id number] [place] [address] 14 Sep, 2013 [facility] [address] [id number] [place] [address] 14 Sep, 2013 [facility] [address] [id number] [place] [address] 05 Sep, 2013 [facility] [address] [id number] [place] [address] 05 Sep, 2013 [facility] [address] [id number] [place] [address] Sep, [facility] [address] [id number] [place] [address] Sep, [facility] [place] [facility] [address] [id number] [place] [address] Sep, [facility] [place] [facility] [address] [id number] [place] [address] Sep, [facility] [place] [facility] [address] [id number] [place] [address] Sep, [facility] [place] [facility] [address] [id number] [place] [address] Sep, [facility] [place] [facility] [address] [id number] [place] [address] Aug, [facility] [place] [facility] [address] [id number] [place] [address] Aug, [facility] [place] [facility] [address] [id number] [place] [address] Aug, [facility] [place] [facility] [address] [id number], [place] [address] Aug, [facility] [place] [facility] [address] [id number], [place] [address] Aug, [facility] [place] [facility] [address] [id number], [place] [address] Aug, [facility] [place] [facility] [address] [id number], [place] [address] Aug, [facility] [place] [facility] [address] [id number], [place] [address] Aug, [facility] [place] [facility] [address] [id number], [place] [address] Aug, [facility] [place] [facility] [address] [id number], [place] [address] Aug, [facility] [place] [facility] [address] [id number], [place] [address] Aug, [facility] [place] [facility] [address] [id number], [place] [address] 18 Aug, 2013 [facility] [place] [facility] [address] [id number] [place] [address] 18 Aug, 2012 [facility] [place] [facility] [address] [id number] [place] [address] 18 Aug, 2013 [facility] [place] [facility] [address] [id number] [place] [address] 17 Aug, 2013 [facility] [place] [facility] [address] [id number] [place] [address] 14 Aug, 2013 [facility] [place] [facility] [address] [id number] [place] [address] 14 Aug, 2013 [facility] [place] [facility] [address] [id number] [place] [address] 01 Aug, 2013 [facility] [place] [facility] [address] [id number] [place] [address] 20 Jul, 2013 [facility] [place] [facility] [address] [id number] [place] [address] 19 Jul, 2013 [facility] [place] [facility] [address] [id number] [place] [address] 18 Jul, 2013 [facility] [place] [facility] [address] [id number] [place] [address] 11 Jul, 2013 [facility] [place] [facility] [address] [id number] [place] [address] 11 Jul, 2012 [facility] [place] [facility] [address] [id number], [place] [address] 28 Jun, 2013 [facility] [place] [facility] [address] [id number] [place] [address] Jun, [facility] [place] [facility] [address] [id number] [place] [address] Jun, [facility] [place] [facility] [address] [id number] [place] [address] 15 Jun, 2013 [facility] [place] [facility] [address] [id number] [place] [address] Jun, [facility] [place] [facility] [address] [id number] [place] [address] Jun, [facility] [place] [facility] [address] [id number] [place] [address] Jun, [facility] [place] [facility] [address] [id number] [place] [address] Jun, [facility] [place] [facility] [address] [id number] [place] [address] Jun, [facility] [place] [facility] [address] [id number] [place] [address] Jun, [facility] [place] [facility] [address] [id number] [place] [address] May, [facility] [place] [facility] [address] [id number] [place] [address] May, [facility] [place] [facility] [address] [id number] [place] [address] May, [facility] [place] [facility] [address] [id number] [place] [address] May, [facility] [place] [facility] [address] [id number] [place] [address] May, [facility] [place] [facility] [address] [id number] [place] [address] May, [facility] [place] [facility] [address] [id number] [place] [address] May, [facility] [place] [facility] [address] [id number] [place] [address] May, [facility] [place] [facility] [address] [id number] [place] [address] May, [facility] [place] [facility] [address] [id number] [place] [address] Apr, [facility] [address] [id number] [place] [address] Apr, [facility] [place] [facility] [address] [id number] [place] [address] Apr, [facility] [place] [facility] [address] [id number] [place] [address] Apr, [facility] [place] [facility] [address] [id number] [place] [address] Apr, [facility] [address] [id number] [place] [address] Apr, [facility] [place] [facility] [address] [id number] [place] [address] Apr, [facility] [place] [facility] [address] [id number] [place] [address] March, [facility] [place] [facility] [address] [id number] [place] [address] Feb, [facility] [place] [facility] [address] [id number] [place] [address] Feb, [facility] [place] [facility] [address] [id number] [place] [address] Feb, [facility] [place] [facility] [address] [id number], [place] [address] Jan, [facility] [place] [facility] [address] [id number], [place] [address] Jan, [facility] [place] [facility] [address] [id number] [place] [address] 19 Jan, 2013 [facility] [place] [facility] [address] [id number], [place] [address] 14 Jan, 2013 [facility] [place] [facility] [address] [id number] [place] [address] 12 Jan, 2013 [facility] [place] [facility] [address] [id number] [place] [address] 08 Jan, 2013 [facility] [address] [id number] [place] [address] 07 Jan, 2013 [facility] [place] [facility] [address] [id number] [place] [address] 04 Jan, 2013 [facility] [place] [facility] [address] [id number] [place] [address] 28 Dec, 2012 [facility] [place] [facility] [address] [id number] [place] [address] 25 Dec, 2012 [facility] [place] [facility] [address] [id number] [place] [address] 13 Dec, 2012 [facility] [place] [facility] [address] [id number] [place] [address] 11 Dec, 2012 [facility] [place] [facility] [address] [id number] [place] [address] 07 Dec, 2012 [facility] [place] [facility] [address] [id number] [place] [address] 06 Dec, 2012 [facility] [place] [facility] [address] [id number] [place] [address] 05 Dec, 2012 [facility] [place] [facility] [address] [id number] [place] [address] 31 Nov, 2012 [facility] [place] [facility] [address] [id number] [place] [address] 24 Nov, 2012 [facility] [place] [facility] [address] [id number] [place] [address] 18 Nov, 2012 [facility] [place] [facility] [address] [id number] [place] [address] 15 Nov, 2012 [facility] [place] [facility] [address] [id number] [place] [address] 10 Nov, 2012 [facility] [place] [facility] [address] [id number] [place] [address] Nov, [facility] [place] [facility] [address] [id number] [place] [address] Nov, [facility] [place] [facility] [address] [id number] [place] [address] Oct, [facility] [place] [facility] [address] [id number] [place] [address] Oct, [facility] [place] [facility] [address] [id number] [place] [address] Oct, [facility] [place] [facility] [address] [id number] [place] [address] Oct, [facility] [place] [facility] [address] [id number] [place] [address] Oct, [facility] [place] [facility] [address] [id number] [place] [address] Oct, [facility] [place] [facility] [address] [id number] [place] [address] Oct, [facility] [place] [facility] [address] [id number] [place] [address] Oct, [facility] [place] [facility] [address] [id number] [place] [address] Oct, [facility] [place] [facility] [address] [id number] [place] [address] Oct, [facility] [place] [facility] [address] [id number], [place] [address] Oct, [facility] [place] [facility] [address] [id number] [place] [address] Oct, [facility] [place] [facility] [address] [id number] [place] [address] Sep, [facility] [place] [facility] [address] [id number] [place] [address] Sep, [facility] [place] [facility] [address] [id number] [place] [address] Sep, [facility] [place] [facility] [address] [id number] [place] [address] Sep, [facility] [place] [facility] [address] [id number] [place] [address] Sep, [facility] [place] [facility] [address] [id number] [place] [address] Sep, [facility] [place] [facility] [address] [id number] [place] [address] Sep, [facility] [place] [facility] [address] [id number] [place] [address] Sep, [facility] [place] [facility] [address] [id number] [place] [address] Sep, [facility] [place] [facility] [address] [id number] [place] [address] Sep, [facility] [place] [facility] [address] [id number] [place] [address] Sep, [facility] [place] [facility] [address] [id number] [place] [address] Aug, [facility] [place] [facility] [address] [facility] [id number] [place] [address] Aug, [facility] [place] [facility] [address] [id number] [place] [address] Aug, [facility] [place] [facility] [address] [id number] [address] Aug, [facility] [place] [facility] [address] [id number] [place] [address] Aug, [facility] [place] [facility] [address] [id number] [place] [address] Aug, [facility] [place] [facility] [address] [id number], [place] [address] Aug, [facility] [place] [facility] [address] [id number] [place] [address] Aug, [facility] [place] [facility] [address] [id number] [place] [address] Aug, [facility] [place] [facility] [address] [id number] [place] [address] Aug, [facility] [place] [facility] [address] [id number] [place] [address] Jul, [facility] [place] [facility] [address] [id number] [place] [address] Jul, [facility] [place] [facility] [address] [id number] [place] [address] Jul, [facility] [place] [facility] [address] [id number] [place] [address] Jul, [facility] [place] [facility] [address] [id number] [place] [address] Jun, [facility] [place] [facility] [address] [id number] [place] [address] Jun, [facility] [place] [facility] [address] [id number] [place] [address] Jun, [facility] [place] [facility] [address] [id number] [place] [address] Jun, [facility] [place] [facility] [address] [id number] [place] [address] Jun, [facility] [place] [facility] [address] [id number] [place] [address] Jun, [facility] [place] [facility] [address] [id number] [place] [address] Jun, [facility] [place] [facility] [address] [id number] [place] [address] May, [facility] [place] [facility] [address] [id number] [place] [address] May, [facility] [place] [facility] [address] [id number] [place] [address] May, [facility] [place] [facility] [address] [id number] [place] [address] May, [facility] [place] [facility] [address] [id number] [place] [address] May, [facility] [place] [facility] [address] [id number] [place] [address] Apr, [facility] [place] [facility] [address] [id number] [place] [address] Apr, [facility] [place] [facility] [address] [id number] [place] [address] Apr, [facility] [place] [facility] [address] [id number] [place] [address] Apr, [facility] [place] [facility] [address] [id number] [place] [address] Apr, [facility] [place] [facility] [address] [id number] [place] [address] March, [facility] [place] [facility] [address] [id number] [place] [address] March, [facility] [place] [facility] [address] [id number] [place] [address] March, [facility] [place] [facility] [address] [id number] [place] [address] March, [facility] [place] [facility] [address] [id number] [place] [address] March, [facility] [place] [facility] [address] [id number] [place] [address] March, [facility] [place] [facility] [address] [id number] [place] [address] March, [facility] [place] [facility] [address] [id number] [place] [address] March, [facility] [address] [id number] [place] [address] March, [facility] [address] [id number] [place] [address] March, [facility] [address] [id number] [place] [address] Feb, [facility] [address] [id number] [place] [address] Feb, [facility] [address] [id number] [place] [address] Feb, [facility] [address] [id number] [place] [address] Feb, [facility] [address] [id number] [place] [address] Feb, [facility] [address] [id number] [place] [address] Feb, [facility] [address] [id number] [place] [address] Feb, [facility] [address] [id number] [place] [address] Feb, [facility] [address] [id number] [place] [address] Feb, [facility] [address] [id number] [place] [address] Jan, [facility] [address] [id number] [place] [address] Jan, [facility] [address] [id number] [place] [address] 05 Jan, 2012 [facility] [address] [id number] [place] [address] Jan, [facility] [address] [id number] [place] [address] Dec, [facility] [place] [facility] [address] [id number] [place] [address] Dec, [facility] [address] [id number] [place] [address] Nov, [facility] [place] [facility] [address] [id number] [place] [address] Nov, [facility] [address] [id number] [place] [address] Nov, [facility] [place] [facility] [address] [id number] [place] [address] Nov, [facility] [address] [id number] [place] [address] Nov, [facility] [address] [id number] [place] [address] Oct, [facility] [address] [id number] [place] [address] Oct, [facility] [address] [id number] [place] [address] Oct, [facility] [place] [facility] [address] [id number] [place] [address] Oct, [facility] [place] [facility] [address] [id number] [place] [address] Oct, [facility] [place] [facility] [address] [id number] [place] [address] Oct, [facility] [place] [facility] [address] [id number] [place] [address] Oct, [facility] [place] [facility] [address] [id number] [place] [address] Oct, [facility] [place] [facility] [address] [id number] [place] [address] Sep, IMMUNIZATIONS No Known Immunizations SOCIAL HISTORY Never Assessed REASON FOR VISIT [place] [place] VITAL SIGNS MEDICATIONS Unknown Medications RESULTS No Results PROCEDURES No Known procedures INSTRUCTIONS MEDICATIONS ADMINISTERED No Known Medications MEDICAL (GENERAL) HISTORY Type Description Date 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
--- OUTSIDE RECORDS SUMMARY | 2019-04-16 15:18 | XMS REPORT ---
Author Author Migration, Doctor Organization [facility] Address Unknown Phone Unavailable Care Team Providers Care Marzipan Molder Name Role Phone Migration, Doctor Unavailable Unavailable PROBLEMS Type Condition ICD9-CM Code OOP37-YE Code Onset Dates Condition Status SNOMED Code Problem Coronary artery disease I25.10 Active 19629277 Problem Hypertension I10 Active 55011046 Problem Other chronic pain G89.29 Active 53880853 Problem Hyperlipidemia E78.5 Active 30376085 Problem Type 2 diabetes mellitus without complication, without long-term current use of insulin E11.9 Active 879174280 Problem Low back pain M54.5 Active 778823876 Problem Pharyngeal dysphagia R13.13 Active [id number] Problem Anxiety F41.9 Active 74877065 Problem Peripheral vascular disease I73.9 Active 899027975 Problem Suprapubic catheter Z93.59 Active 530838555 Problem Reactive depression F32.9 Active 69580625 Problem Neurogenic bladder N31.9 Active 746643250 Problem Ventral hernia without obstruction or gangrene K43.9 Active 795972454 Problem Insomnia G47.00 Active 264621319 Problem Paroxysmal atrial fibrillation I48.0 Active 355588854 Problem 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 Active 23891869 Problem Encounter for suprapubic catheter care Z43.5 Active 391150906 ALLERGIES No Information ENCOUNTERS Encounter Location Date Diagnosis Via [facility] [address] [place] [id number] Jun, [facility] [address] [facility] [place] [id number] March, [facility] [address] [id number] [address] Feb, Other chronic pain G89.29 [facility] [address] [id number] [address] Feb, Anxiety F41.9 [facility] [address] [id number] [address] Feb, Other chronic pain G89.29 Via [facility] [employer] [facility] [address] [place] [id number] Feb, Neurogenic bladder N31.9 and Suprapubic catheter Z93.59 [facility] [address] [id number] [address] Jan, Anxiety F41.9 [facility] [address] [id number] [place] [address] Dec, Anxiety F41.9 [facility] [address] [id number] [place] [address] Dec, Other chronic pain G89.29 and Anxiety F41.9 [facility] [address] [facility] [place] [id number] [place] [address] Dec, Via [employer] [address] [place] [id number] Dec, Neurogenic bladder N31.9 and Suprapubic catheter Z93.59 [facility] [address] [facility] [place] [id number] [place] [address] Nov, Other chronic pain G89.29 and Anxiety F41.9 [facility] [address] [facility] [place] [id number] [place] [address] Nov, Via [employer] [address] [place] [address] Nov, Suprapubic catheter Z93.59 [facility] [address] [facility] [place] [id number] [place] [address] Oct, Other chronic pain G89.29 and Anxiety F41.9 [facility] [address] [facility] [place] [id number] [place] [address] Oct, [facility] [address] [facility] [place] [id number] [place] [address] Oct, Suprapubic catheter Z93.59 [facility] [address] [facility] [place] [id number] [place] [address] Oct, Via [employer] [address] [place] [id number] Oct, [facility] [address] [id number] [address] Oct, Anxiety F41.9 [facility] [address] [id number] [place] [address] Oct, Anxiety F41.9 [facility] [employer] [address] [place] [address] Oct, Other chronic pain G89.29 [facility] [address] [id number] [place] [address] Sep, Other chronic pain G89.29 [facility] [facility] [address] [place] [id number] Sep, Suprapubic catheter Z93.59 and Cervicalgia M54.2 [facility] [address] [id number] [address] Sep, [facility] [address] [id number] [place] [address] Sep, [facility] [address] [facility] [place] [id number] [address] Sep, Via [employer] [address] [place] [id number] Aug, Cystitis N30.90 [facility] [address] [id number] [address] Aug, [facility] [address] [id number] [address] Aug, Other chronic pain G89.29 [facility] [address] [id number] [place] [address] Aug, Via [employer] [address] [place] [id number] Aug, Encounter for suprapubic catheter care Z43.5 [facility] [address] [address] 20 Jul, 2018 [facility] [employer] [address] [place] [id number] Jul, [facility] [address] [address] Jul, Other chronic pain G89.29 [facility] [address] [address] Jul, [facility] [address] [address] Jul, [facility] [employer] [address] [place] [id number] Jun, 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 [id number] [place] [address] Jun, Other chronic pain G89.29 [address] [address] [place] [address] Jun, [facility] [employer] [address] [place] [id number] May, Anxiety F41.9 ; Type 2 diabetes mellitus without complication, without long-term current use of insulin E11.9 ; Hypertension I10 ; Low back pain M54.5 ; Paroxysmal atrial fibrillation I48.0 and 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 [address] [place] [address]005[address] [address] May, Other chronic pain G89.29 [facility] [employer] [address] [place] [id number] May, Low back pain M54.5 [address] [place] [address] [address] May, [address] [place] [address] [address] Apr, Other chronic pain G89.29 [address] [address] [address] Apr, [facility] [address] [id number] [place] [address] Apr, Via [facility] [employer] [address] [place] [id number] 19 Apr, 2018 Closed compression fracture of L3 lumbar vertebra with routine healing, subsequent encounter S32.030D [facility] [address] [place] [id number] 14 Apr, 2018 Low back pain M54.5 [facility] [employer] [address] [place] [address] 12 Apr, 2018 Coccydynia M53.3 [facility] [address] [id number] [place] [address] March, [facility] [address] [id number] [place] [address] March, Other chronic pain G89.29 [facility] [address] [id number] [place] [address] March, [facility] [address] [id number] [place] [address] March, [facility] [address] [id number] [place] [address] Feb, [facility] [address] [facility] [place] [id number] [address] Feb, Other chronic pain G89.29 Via [facility] [employer] [address] [place] [address] Feb, Other chronic pain G89.29 and Anxiety F41.9 [facility] [address] [id number] [place] [address] Feb, [facility] [address] [facility] [place] [id number] [place] [address] Jan, [facility] [address] [facility] [place] [id number] [place] [address] Jan, [facility] [address] [facility] [place] [id number] [address] Jan, [facility] [address] [facility] [place] [id number] [place] [address] Jan, [facility] [address] [id number] [address] Dec, [facility] [address] [place] [address] Dec, Peripheral vascular disease I73.9 ; 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 ; Other chronic pain G89.29 ; Anxiety F41.9 ; Reactive depression F32.9 ; Insomnia G47.00 and Type 2 diabetes mellitus without complication, without long-term current use of insulin E11.9 [address] [id number] [place] [address] Nov, [facility] [address] [id number] [address] Nov, Anxiety F41.9 [facility] [address] [facility] [place] [id number] [address] Nov, [facility] [address] [id number] [address] Nov, Anxiety F41.9 [facility] [employer] [address] [facility] [place] [id number] Nov, Status post surgery Z98.890 ; Confused R41.0 ; Anxiety F41.9 and Other chronic pain G89.29 [facility] [address] [id number] [place] [address] Nov, Other chronic pain G89.29 [facility] [address] [facility] [place] [id number] [place] [address] Oct, [facility] [id number] [place] [id number] Oct, Other chronic pain G89.29 [facility] [address] [facility] [place] [id number] [place] [address] Oct, Anxiety F41.9 [facility] [id number] [place] [address] Sep, Other chronic pain G89.29 [facility] [id number] [place] [id number] Sep, Via [facility] [address] [place] [id number] Aug, Dysuria R30.0 and Anxiety F41.9 [facility] [id number] [place] [address] Aug, [facility] [id number] [place] [id number] Aug, Other chronic pain G89.29 [facility] [id number] [place] [address] Jul, Other chronic pain G89.29 [facility] [id number] [place] [id number] Jun, [facility] [id number] [place] [id number] Jun, Other chronic pain G89.29 [facility] [id number] [place] [address] Jun, [facility] [address]00565100[place] [address] May, Other chronic pain G89.29 [facility] [id number] [place] [address] Apr, Other chronic pain G89.29 [facility] [employer] [address] [place] [id number] Apr, Reactive depression F32.9 and Pharyngeal dysphagia R13.13 [facility] [address] [id number] [address] Apr, Urinary tract infection without hematuria, site unspecified N39.0 [facility] [id number] [place] [address] March, Other chronic pain G89.29 [facility] [address]00565100[place] [address] Feb, Other chronic pain G89.29 [facility] [address]100[place] [address] Feb, [facility] [id number] [place] [id number] Feb, Via [employer] [facility] [employer] [address] [place] [id number] Feb, Dysuria R30.0 and Ventral hernia without obstruction or gangrene K43.9 [facility] [id number] [place] [address] Jan, Other chronic pain G89.29 [facility] [id number] [place] [id number] Dec, Other chronic pain G89.29 [facility] [id number] [place] [address] Nov, Other chronic pain G89.29 [facility] [employer] [address] [place] [id number] Nov, Lymphadenitis I88.9 [facility] [id number] [place] [address] Nov, Other chronic pain G89.29 [facility] [address]005[address]100[place] [address] Nov, [facility] [id number] [place] [id number] Nov, Other chronic pain G89.29 [facility] [employer] [address] [place] [id number] Oct, Low back pain M54.5 ; Hypertension I10 and Type 2 diabetes mellitus without complication, without long-term current use of insulin E11.9 [facility] [id number] [place] [address] Oct, [facility] [address] [facility] [place] [id number] [address] Oct, [facility] [address] [facility] [place] [id number] [address] Oct, [facility] [address] [facility] [place] [id number] [place] [address] Oct, [facility] [address] [facility] [place] [id number] [place] [address] Sep, [facility] [address] [facility] [place] [id number] [place] [address] Sep, [facility] [address] [facility] [place] [id number] [place] [address] Aug, Other chronic pain G89.29 [facility] [address] [facility] [place] [id number] [place] [address] Jul, [facility] [address]00565100[place] [address] Jul, [facility] [address]00565100[place] [address] Jul, [facility] [address]005[address]100[place] [address] Jun, [facility] [address] [id number] [address] Jun, Via [facility] [address] [place] [id number] Jun, Low back pain M54.5 ; Other chronic pain G89.29 and Coronary artery disease I25.10 [facility] [address] [facility] [place] [id number] [place] [address] Jun, [facility] [address] [facility] [place] [id number] [place] [address] May, [facility] [address] [id number] [address] May, [facility] [address]100[place] [address] May, Other chronic pain G89.29 [facility] [address]00565100[place] [address] May, [facility] [address]100[place] [address] 28 Apr, 2016 [facility] [address] [place] [address] 17 Apr, 2016 Acute cystitis without hematuria N30.00 [facility] [id number] [place] [address] 16 Apr, 2016 Acute cystitis without hematuria N30.00 ; Coronary artery disease I25.10 ; Low back pain M54.5 and Other chronic pain G89.29 [facility] [address]005[address]100[place] [address] Apr, Other chronic pain G89.29 [facility] [address]100[place] [address] March, Other chronic pain G89.29 [facility] [address]00565100[place] [address] 18 Feb, 2016 [facility] [address]100[place] [address] 15 Feb, 2016 Arthritis M19.90 [facility] [address]00565100[place] [address] Feb, [facility] [address]00565100[place] [address] 30 Jan, 2016 [facility] [address]00565100[place] [address] Jan, [facility] [address]00565100[place] [address] Jan, Other chronic pain G89.29 [facility] [address]00565100[place] [address] Jan, Hypertension I10 ; Coronary artery disease I25.10 and Insomnia G47.00 [facility] [address]00565100[place] [address] Jan, [facility] [id number] [place] [address] Dec, Right hip pain M25.551 [facility] [id number] [place] [address] Dec, [facility] [id number] [place] [address] Dec, [facility] [id number] [place] [address] Dec, [facility] [id number] [place] [address] Dec, Other chronic pain G89.29 [facility] [id number] [place] [address] Dec, [facility] [id number] [place] [address] Nov, [facility] [address]00565100[place] [address] Nov, Other chronic pain G89.29 [facility] [address] [place] [address] Nov, Right hip pain M25.551 and Coronary artery disease I25.10 [facility] [address] [place] [address] Nov, Other chronic pain G89.29 [facility] [address]00565100[place] [address] Oct, [facility] [id number] [place] [address] Oct, [facility] [address]00565100[place] [address] Sep, [facility] [id number] [place] [address] Sep, [facility] [id number] [place] [address] Aug, [facility] [id number] [place] [address] Aug, Hypertension I10 ; Coronary artery disease I25.10 and Arthritis M19.90 [facility] [id number] [place] [address] Jun, [facility] [id number] [place] [address] Jun, Essential hypertension, benign 401.1 ; Other chronic pain 338.29 and Chronic airway obstruction, not elsewhere classified 496 [facility] [address]00565100[place] [address] Jun, [facility] [id number] [place] [address] Jun, [facility] [address]005[address]100[place] [address] Jun, [facility] [address]005[address]100[place] [address] May, [facility] [address]00565100[place] [address] May, [facility] [id number] [place] [address] Apr, [facility] [address]005[address]100[place] [address] 16 Apr, 2015 [facility] [address] [address] Apr, [facility] [address] [id number] [place] [address] March, [facility] [address] [id number] [place] [address] March, [facility] [address] [id number] [place] [address] March, [facility] [address] [id number] [place] [address] March, [facility] [address] [id number] [place] [address] March, Sialadenitis 527.2 [facility] [address] [id number] [place] [address] Feb, [facility] [address] [id number] [place] [address] Feb, [facility] [address] [id number] [place] [address] Feb, [facility] [address] [id number] [place] [address] Feb, [facility] [address] [facility] [place] [id number] [place] [address] Feb, [facility] [address] [id number] [place] [address] Jan, [facility] [address] [id number] [place] [address] Jan, [facility] [address] [id number] [place] [address] Jan, [facility] [address] [id number] [place] [address] Jan, [facility] [address] [facility] [place] [facility] [id number] [place] [address] Jan, [facility] [address] [id number] [place] [address] Jan, [facility] [place] [facility] [address] [id number] [place] [address] Dec, 2014 [facility] [place] [facility] [address] [id number] [place] [address] Dec, 2014 [facility] [place] [facility] [address] [id number] [place] [address] Dec, 2014 [facility] [place] [facility] [address] [id number] [place] [address] Dec, 2014 [facility] [place] [facility] [address] [id number] [place] [address] Dec, 2014 [facility] [place] [facility] [address] [id number] [place] [address] Dec, 2014 [facility] [place] [facility] [address] [id number] [place] [address] Nov, [facility] [place] [facility] [address] [id number] [place] [address] Nov, [facility] [place] [facility] [address] [id number] [place] [address] Nov, [facility] [place] [facility] [address] [id number] [place] [address] Nov, [facility] [place] [facility] [address] [id number] [place] [address] Nov, [facility] [place] [facility] [address] [id number] [place] [address] Nov, [facility] [place] [facility] [address] [id number] [place] [address] Nov, [facility] [place] [facility] [address] [id number] [place] [address] Nov, [facility] [place] [facility] [address] [id number] [place] [address] Nov, [facility] [place] [facility] [address] [id number] [place] [address] Nov, [facility] [place] [facility] [address] [id number] [place] [address] Nov, [facility] [place] [facility] [address] [address] [id number] [place] [address] Nov, [facility] [place] [facility] [address] [id number] [place] [address] Nov, [facility] [place] [facility] [address] [id number] [place] [address] Nov, [facility] [place] [facility] [address] [id number] [place] [address] Oct, [facility] [place] [facility] [address] [id number] [place] [address] Oct, [facility] [place] [facility] [address] [id number] [place] [address] Oct, [facility] [place] [facility] [address] [id number] [place] [address] 18 Oct, 2014 [facility] [place] [facility] [address] [id number] [place] [address] 18 Oct, 2014 [facility] [place] [facility] [address] [id number] [place] [address] 17 Oct, 2014 [facility] [place] [facility] [address] [id number] [place] [address] 17 Oct, 2014 [facility] [place] [facility] [address] [id number] [place] [address] 10 Oct, 2014 [facility] [place] [facility] [address] [id number] [place] [address] Oct, [facility] [place] [facility] [address] [id number] [place] [address] Sep, [facility] [place] [facility] [address] [id number] [place] [address] Sep, [facility] [place] [facility] [address] [id number] [place] [address] Sep, [facility] [place] [facility] [address] [id number] [place] [address] Sep, [facility] [place] [facility] [address] [id number] [place] [address] Sep, [facility] [place] [facility] [address] [id number] [place] [address] Sep, [facility] [place] [facility] [address] [id number] [place] [address] Sep, [facility] [place] [facility] [address] [id number] [place] [address] Sep, [facility] [place] [facility] [address] [id number] [place] [address] Sep, [facility] [place] [facility] [address] [id number] [place] [address] Sep, [facility] [place] [facility] [address] [id number] [place] [address] Sep, [facility] [place] [facility] [address] [facility] [place] [facility] [id number] [place] [address] Sep, [facility] [place] [facility] [address] [id number] [place] [address] Aug, [facility] [place] [facility] [address] [id number] [address] Aug, [facility] [place] [facility] [address] [id number] [place] [address] Aug, [facility] [place] [facility] [address] [id number] [place] [address] Aug, [facility] [place] [facility] [address] [id number] [place] [address] Aug, [facility] [place] [facility] [address] [id number] [place] [address] 28 Aug, 2014 [facility] [place] [facility] [address] [id number] [place] [address] Aug, [facility] [place] [facility] [address] [id number] [place] [address] 17 Aug, 2013 [facility] [place] [facility] [address] [id number] [place] [address] 30 Jul, 2013 [facility] [place] [facility] [address] [id number] [place] [address] 30 Jul, 2013 [facility] [place] [facility] [address] [id number] [place] [address] 30 Jul, 2013 [facility] [place] [facility] [address] [id number] [place] [address] 30 Jul, 2013 [facility] [place] [facility] [address] [id number] [place] [address] 25 Jul, 2013 [facility] [place] [facility] [address] [id number] [place] [address] 25 Jul, 2013 [facility] [place] [facility] [address] [id number] [place] [address] 15 Jul, 2014 [facility] [place] [facility] [address] [id number] [place] [address] 15 Jul, 2014 [facility] [place] [facility] [address] [id number] [place] [address] 11 Jul, 2014 [facility] [place] [facility] [address] [id number] [place] [address] Jul, [facility] [place] [facility] [address] [id number] [place] [address] Jun, [facility] [place] [facility] [address] [id number] [place] [address] Jun, [facility] [place] [facility] [address] [id number] [place] [address] Jun, [facility] [place] [facility] [address] [id number] [place] [address] Jun, [facility] [place] [facility] [address] [id number] [place] [address] Jun, [facility] [place] [facility] [address] [id number] [place] [address] Jun, [facility] [place] [facility] [address] [id number] [place] [address] Jun, [facility] [place] [facility] [address] [id number] [place] [address] Jun, [facility] [place] [facility] [address] [id number] [place] [address] Jun, [facility] [place] [facility] [address] [id number] [place] [address] Jun, [facility] [place] [facility] [address] [id number] [place] [address] Jun, [facility] [place] [facility] [address] [id number] [place] [address] Jun, [facility] [place] [facility] [address] [id number] [place] [address] Jun, [facility] [place] [facility] [address] [id number] [place] [address] Jun, [facility] [place] [facility] [address] [id number] [place] [address] Jun, [facility] [place] [facility] [address] [id number] [place] [address] Jun, [facility] [place] [facility] [address] [id number] [place] [address] Jun, [facility] [place] [facility] [address] [id number] [place] [address] Jun, [facility] [place] [facility] [address] [id number] [place] [address] Jun, [facility] [place] [facility] [address] [id number] [place] [address] Jun, [facility] [place] [facility] [address] [id number] [place] [address] Jun, [facility] [place] [facility] [address] [id number] [place] [address] Jun, [facility] [place] [facility] [address] [id number] [place] [address] May, [facility] [place] [facility] [address] [id number] [place] [address] May, [facility] [place] [facility] [address] [id number] [place] [address] May, [facility] [place] [facility] [address] [id number] [place] [address] May, [facility] [place] [facility] [address] [id number] [place] [address] May, [facility] [place] [facility] [address] [id number] [place] [address] May, [facility] [place] [facility] [address] [id number] [place] [address] May, [facility] [place] [facility] [address] [id number] [place] [address] May, [facility] [place] [facility] [address] [id number] [place] [address] May, [facility] [place] [facility] [address] [id number] [place] [address] May, [facility] [place] [facility] [address] [id number] [place] [address] May, [facility] [place] [facility] [address] [id number] [place] [address] May, [facility] [place] [facility] [address] [id number] [place] [address] May, [facility] [place] [facility] [address] [id number] [place] [address] Apr, [facility] [place] [facility] [address] [id number] [place] [address] Apr, [facility] [place] [facility] [address] [id number] [place] [address] Apr, [facility] [place] [facility] [address] [id number] [place] [address] Apr, [facility] [place] [facility] [address] [id number] [place] [address] Apr, [facility] [place] [facility] [address] [id number] [place] [address] Apr, [facility] [place] [facility] [address] [id number] [place] [address] Apr, [facility] [place] [facility] [address] [id number] [place] [address] Apr, [facility] [place] [facility] [address] [id number] [place] [address] Apr, [facility] [place] [facility] [address] [id number] [place] [address] March, [facility] [place] [facility] [address] [id number] [place] [address] March, [facility] [place] [facility] [address] [id number] [place] [address] March, [facility] [place] [facility] [address] [id number] [place] [address] March, [facility] [place] [facility] [address] [id number] [place] [address] March, [facility] [place] [facility] [address] [id number] [place] [address] March, [facility] [address] [id number] [place] [address] March, [facility] [place] [facility] [address] [id number] [place] [address] March, [facility] [place] [facility] [address] [id number] [place] [address] March, [facility] [place] [facility] [address] [id number] [place] [address] March, [facility] [place] [facility] [address] [id number] [place] [address] March, [facility] [place] [facility] [address] [id number] [place] [address] March, [facility] [address] [id number] [place] [address] March, [facility] [place] [facility] [address] [id number] [place] [address] March, [facility] [place] [facility] [address] [id number] [place] [address] March, [facility] [place] [facility] [address] [id number] [place] [address] March, [facility] [place] [facility] [address] [id number] [place] [address] March, [facility] [place] [facility] [address] [id number] [place] [address] March, [facility] [place] [facility] [address] [id number] [place] [address] March, [facility] [place] [facility] [address] [id number] [place] [address] March, [facility] [place] [facility] [address] [id number] [place] [address] Feb, [facility] [place] [facility] [address] [id number] [place] [address] 29 Feb, 2014 [facility] [place] [facility] [address] [id number] [place] [address] Feb, [facility] [place] [facility] [address] [id number] [place] [address] Feb, [facility] [place] [facility] [address] [id number] [place] [address] Feb, [facility] [place] [facility] [address] [id number] [place] [address] Feb, [facility] [place] [facility] [address] [id number] [place] [address] Feb, [facility] [place] [facility] [address] [id number] [place] [address] Feb, [facility] [place] [facility] [address] [id number] [place] [address] Jan, [facility] [place] [facility] [address] [id number] [place] [address] Jan, [facility] [place] [facility] [address] [id number] [place] [address] Jan, [facility] [place] [facility] [address] [id number] [place] [address] 24 Jan, 2014 [facility] [place] [facility] [address] [id number] [place] [address] Jan, [facility] [place] [facility] [address] [id number] [place] [address] Jan, [facility] [place] [facility] [address] [id number] [place] [address] Jan, [facility] [place] [facility] [address] [id number] [place] [address] Jan, [facility] [place] [facility] [address] [id number] [place] [address] Jan, [facility] [place] [facility] [address] [id number] [place] [address] Jan, [facility] [place] [facility] [address] [id number] [place] [address] Dec, [facility] [place] [facility] [address] [id number] [place] [address] Dec, [facility] [place] [facility] [address] [id number] [place] [address] Dec, [facility] [place] [facility] [address] [id number] [place] [address] Dec, [facility] [place] [facility] [address] [id number] [place] [address] Dec, [facility] [place] [facility] [address] [id number] [place] [address] Dec, [facility] [place] [facility] [address] [id number] [place] [address] Dec, [facility] [place] [facility] [address] [id number] [place] [address] Dec, [facility] [place] [facility] [address] [id number] [place] [address] Nov, [facility] [place] [facility] [address] [id number] [place] [address] Nov, [facility] [place] [facility] [address] [id number] [place] [address] Nov, [facility] [place] [facility] [address] [id number] [place] [address] Nov, [facility] [place] [facility] [address] [id number] [place] [address] Nov, [facility] [place] [facility] [address] [id number] [place] [address] Nov, [facility] [place] [facility] [address] [id number] [place] [address] Nov, [facility] [address] [id number] [place] [address] Nov, [facility] [place] [facility] [address] [id number] [place] [address] Nov, [facility] [address] [id number] [place] [address] Nov, [facility] [address] [id number] [place] [address] Nov, [facility] [address] [id number] [place] [address] Nov, [facility] [address] [id number] [place] [address] Nov, [facility] [address] [id number] [place] [address] Oct, [facility] [address] [id number] [place] [address] 30 Oct, 2013 [facility] [address] [id number] [place] [address] Oct, [facility] [address] [id number] [place] [address] Oct, [facility] [place] [facility] [address] [id number] [place] [address] Oct, [facility] [address] [id number] [place] [address] Oct, [facility] [place] [facility] [address] [id number] [place] [address] Oct, [facility] [place] [facility] [address] [id number] [place] [address] Oct, [facility] [place] [facility] [address] [id number] [place] [address] Oct, [facility] [address] [id number] [place] [address] Oct, [facility] [place] [facility] [address] [id number] [place] [address] Oct, [facility] [place] [facility] [address] [id number] [place] [address] Oct, [facility] [place] [facility] [address] [id number] [place] [address] Oct, [facility] [place] [facility] [address] [id number] [place] [address] Oct, [facility] [place] [facility] [address] [id number] [place] [address] Sep, [facility] [place] [facility] [address] [id number] [place] [address] Sep, [facility] [place] [facility] [address] [id number] [place] [address] Sep, [facility] [place] [facility] [address] [id number] [place] [address] Sep, [facility] [place] [facility] [address] [id number] [place] [address] Sep, [facility] [place] [facility] [address] [id number] [place] [address] Sep, [facility] [place] [facility] [address] [id number] [place] [address] Sep, [facility] [place] [facility] [address] [id number] [place] [address] Sep, [facility] [place] [facility] [address] [id number] [place] [address] Sep, [facility] [place] [facility] [address] [id number] [place] [address] Sep, [facility] [place] [facility] [address] [id number] [place] [address] 24 Aug, 2012 [facility] [place] [facility] [address] [id number] [place] [address] 24 Aug, 2012 [facility] [place] [facility] [address] [id number] [place] [address] 24 Aug, 2012 [facility] [place] [facility] [address] [id number] [place] [address] 24 Aug, 2012 [facility] [place] [facility] [address] [id number] [place] [address] 23 Aug, 2012 [facility] [place] [facility] [address] [id number] [place] [address] 23 Aug, 2012 [facility] [place] [facility] [address] [id number] [place] [address] 23 Aug, 2012 [facility] [place] [facility] [address] [id number] [place] [address] 23 Aug, 2012 [facility] [place] [facility] [address] [id number] [place] [address] 22 Aug, 2012 [facility] [place] [facility] [address] [id number] [place] [address] 22 Aug, 2012 [facility] [place] [facility] [address] [id number] [place] [address] 18 Aug, 2012 [facility] [place] [facility] [address] [id number] [place] [address] 18 Aug, 2012 [facility] [place] [facility] [address] [id number] [place] [address] 18 Aug, 2012 [facility] [place] [facility] [address] [id number] [place] [address] 18 Aug, 2012 [facility] [place] [facility] [address] [id number] [place] [address] 17 Aug, 2012 [facility] [place] [facility] [address] [id number] [place] [address] 14 Aug2012 [facility] [place] [facility] [address] [id number] [place] [address] 14 Aug, 2013 [facility] [place] [facility] [address] [id number] [place] [address] Aug, [facility] [place] [facility] [address] [id number] [place] [address] 20 Jul, 2013 [facility] [place] [facility] [address] [id number] [place] [address] 19 Jul, 2013 [facility] [place] [facility] [address] [id number] [place] [address] 18 Jul, 2013 [facility] [place] [facility] [address] [id number] [place] [address] 11 Jul, 2013 [facility] [place] [facility] [address] [id number] [place] [address] Jul, [facility] [place] [facility] [address] [id number] [place] [address] Jun, [facility] [place] [facility] [address] [id number] [place] [address] Jun, [facility] [place] [facility] [address] [id number] [place] [address] Jun, [facility] [place] [facility] [address] [id number] [place] [address] 15 Jun, 2013 [facility] [place] [facility] [address] [id number] [place] [address] 14 Jun, 2013 [facility] [place] [facility] [address] [id number] [place] [address] Jun, [facility] [place] [facility] [address] [id number] [place] [address] Jun, [facility] [place] [facility] [address] [id number] [place] [address] 08 Jun, 2013 [facility] [place] [facility] [address] [id number] [place] [address] Jun, [facility] [place] [facility] [address] [id number] [place] [address] Jun, [facility] [place] [facility] [address] [id number] [place] [address] May, [facility] [place] [facility] [address] [id number] [place] [address] May, [facility] [place] [facility] [address] [id number] [place] [address] May, [facility] [place] [facility] [address] [id number] [place] [address] May, [facility] [place] [facility] [address] [id number] [place] [address] May, [facility] [place] [facility] [address] [id number] [place] [address] May, [facility] [place] [facility] [address] [id number] [place] [address] May, [facility] [place] [facility] [address] [id number] [place] [address] May, [facility] [place] [facility] [address] [id number] [place] [address] May, [facility] [place] [facility] [address] [id number] [place] [address] Apr, [facility] [place] [facility] [address] [id number] [place] [address] Apr, [facility] [place] [facility] [address] [id number] [place] [address] Apr, [facility] [place] [facility] [address] [id number] [place] [address] Apr, [facility] [place] [facility] [address] [id number] [place] [address] Apr, [facility] [place] [facility] [address] [id number] [place] [address] Apr, [facility] [address] [id number] [place] [address] Apr, [facility] [address] [id number] [place] [address] March, [facility] [address] [id number] [place] [address] Feb, [facility] [address] [id number] [place] [address] Feb, [facility] [address] [id number] [place] [address] Feb, [facility] [address] [id number] [place] [address] Jan, [facility] [address] [id number] [place] [address] Jan, [facility] [address] [id number] [place] [address] Jan, [facility] [address] [id number] [place] [address] Jan, [facility] [address] [id number] [place] [address] Jan, [facility] [address] [id number] [place] [address] Jan, [facility] [address] [id number] [place] [address] Jan, [facility] [address] [id number] [place] [address] Jan, [facility] [address] [id number] [place] [address] Dec, [facility] [address] [id number] [place] [address] Dec, [facility] [address] [id number] [place] [address] 13 Dec, 2012 [facility] [place] [facility] [address] [id number] [place] [address] Dec, [facility] [place] [facility] [address] [id number] [place] [address] 07 Dec, 2012 [facility] [place] [facility] [address] [id number] [place] [address] 06 Dec, 2012 [facility] [place] [facility] [address] [id number] [place] [address] Dec, [facility] [place] [facility] [address] [id number] [place] [address] Nov, [facility] [place] [facility] [address] [id number] [place] [address] Nov, [facility] [place] [facility] [address] [id number] [place] [address] Nov, [facility] [place] [facility] [address] [id number] [place] [address] Nov, [facility] [place] [facility] [address] [id number] [place] [address] Nov, [facility] [place] [facility] [address] [id number] [place] [address] Nov, [facility] [place] [facility] [address] [id number] [place] [address] Nov, [facility] [place] [facility] [address] [id number] [place] [address] Oct, [facility] [place] [facility] [address] [id number] [place] [address] Oct, [facility] [place] [facility] [address] [id number] [place] [address] Oct, [facility] [place] [facility] [address] [id number] [place] [address] Oct, [facility] [place] [facility] [address] [id number] [place] [address] Oct, [facility] [place] [facility] [address] [id number] [place] [address] Oct, [facility] [place] [facility] [address] [id number] [place] [address] Oct, [facility] [place] [facility] [address] [id number] [place] [address] Oct, [facility] [place] [facility] [address] [id number] [place] [address] Oct, [facility] [place] [facility] [address] [id number] [place] [address] Oct, [facility] [place] [facility] [address] [id number] [place] [address] Oct, [facility] [place] [facility] [address] [id number] [place] [address] Oct, [facility] [place] [facility] [address] [id number] [place] [address] Sep, [facility] [place] [facility] [address] [facility] [place] [id number] [place] [address] Sep, [facility] [place] [facility] [address] [id number] [place] [address] Sep, [facility] [place] [facility] [address] [id number] [place] [address] Sep, [facility] [place] [facility] [address] [id number] [place] [address] Sep, [facility] [place] [facility] [address] [id number] [place] [address] Sep, [facility] [place] [facility] [address] [address] [id number] [place] [address] Sep, [facility] [place] [facility] [address] [id number] [place] [address] Sep, [facility] [place] [facility] [address] [id number] [place] [address] Sep, [facility] [place] [facility] [address] [id number] [place] [address] Sep, [facility] [place] [facility] [address] [id number] [place] [address] Sep, [facility] [place] [facility] [address] [id number] [place] [address] Aug, [facility] [place] [facility] [address] [id number] [place] [address] Aug, [facility] [place] [facility] [address] [id number] [place] [address] Aug, [facility] [place] [facility] [address] [id number] [place] [address] Aug, [facility] [place] [facility] [address] [id number] [place] [address] Aug, [facility] [place] [facility] [address] [id number] [place] [address] Aug, [facility] [place] [facility] [address] [facility] [place] [facility] [id number] [place] [address] Aug, [facility] [place] [facility] [address] [id number] [place] [address] Aug, [facility] [place] [facility] [address] [id number] [place] [address] Aug, [facility] [place] [facility] [address] [id number] [place] [address] Aug, [facility] [place] [facility] [address] [id number] [place] [address] Jul, [facility] [place] [facility] [address] [id number] [place] [address] Jul, [facility] [place] [facility] [address] [id number] [place] [address] Jul, [facility] [place] [facility] [address] [id number] [place] [address] Jul, [facility] [place] [facility] [address] [id number] [place] [address] Jun, [facility] [place] [facility] [address] [id number] [place] [address] Jun, [facility] [place] [facility] [address] [id number] [place] [address] Jun, [facility] [place] [facility] [address] [id number] [place] [address] Jun, [facility] [place] [facility] [address] [id number] [place] [address] Jun, [facility] [place] [facility] [address] [id number] [place] [address] Jun, [facility] [place] [facility] [address] [id number] [place] [address] Jun, [facility] [place] [facility] [address] [id number] [place] [address] May, [facility] [place] [facility] [address] [id number] [place] [address] May, [facility] [place] [facility] [address] [id number] [place] [address] May, [facility] [place] [facility] [address] [id number] [place] [address] May, [facility] [place] [facility] [address] [id number] [place] [address] May, [facility] [place] [facility] [address] [id number] [place] [address] Apr, [facility] [place] [facility] [address] [id number] [place] [address] 18 Apr, 2012 [facility] [address] [id number] [place] [address] Apr, [facility] [address] [id number] [place] [address] Apr, [facility] [address] [id number] [place] [address] Apr, [facility] [address] [id number] [place] [address] March, [facility] [address] [id number] [place] [address] March, [facility] [address] [id number] [place] [address] March, [facility] [address] [id number] [place] [address] March, [facility] [address] [id number] [place] [address] March, [facility] [address] [id number] [place] [address] March, [facility] [address] [id number] [place] [address] March, [facility] [address] [id number] [place] [address] March, [facility] [address] [id number] [place] [address] March[facility] [place] [facility] [address] [id number] [place] [address] March, [facility] [address] [id number] [place] [address] Feb, [facility] [address] [id number] [place] [address] Feb, [facility] [address] [id number] [place] [address] Feb, [facility] [place] [facility] [address] [id number] [place] [address] Feb, [facility] [place] [facility] [address] [id number] [place] [address] Feb, [facility] [place] [facility] [address] [id number] [place] [address] Feb, [facility] [place] [facility] [address] [id number] [place] [address] Feb, [facility] [place] [facility] [address] [id number] [place] [address] Feb, [facility] [place] [facility] [address] [id number] [place] [address] Feb, [facility] [place] [facility] [address] [id number] [place] [address] Jan, [facility] [place] [facility] [address] [id number] [place] [address] Jan, [facility] [place] [facility] [address] [id number] [place] [address] Jan, [facility] [place] [facility] [address] [id number] [place] [address] Jan, [facility] [place] [facility] [address] [id number] [place] [address] Dec, [facility] [place] [facility] [address] [id number] [place] [address] Dec, [facility] [place] [facility] [address] [id number] [place] [address] Nov, [facility] [place] [facility] [address] [id number] [place] [address] Nov, [facility] [place] [facility] [address] [id number] [address] Nov, [facility] [id number] [address] Nov, [facility] [id number] [address] Nov, [facility] [id number] [address] Oct, [facility] [id number] [address] Oct, [facility] [id number] [place] [address] Oct, [facility] [id number] [place] [address] Oct, [facility] [id number] [address] Oct, [facility] [id number] [place] [address] Oct, [facility] [id number] [place] [address] Oct, [facility] [address] [id number] [address] Oct, [facility] [id number] [address] Sep, IMMUNIZATIONS No Known Immunizations SOCIAL HISTORY Never Assessed REASON FOR VISIT [facility] [place] OF CARE VITAL SIGNS MEDICATIONS Unknown Medications RESULTS No Results PROCEDURES No Known procedures INSTRUCTIONS MEDICATIONS ADMINISTERED No Known Medications MEDICAL (GENERAL) HISTORY Type Description Date 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 Surgical History No Surgical history information Hospitalization History [facility], [place]- Urosepsis, abd pain and fever, discharged 11/27/2017 11/26/2017 Hospitalization History [facility] [place]- Went Unrepsonsive, Hit head 2017 Hospitalization History [facility] [place]- Back Pain 05/05/2018
[2019-04-16] MEDS ORDERED: NS IV 1000 ML 1,000 ML IV SCH (15:19)
[2019-04-16] MEDS ORDERED: NS IV 500 ML 500 ML IV SCH (15:19)
--- OUTSIDE RECORDS SUMMARY | 2019-04-16 15:19 | XMS REPORT ---
Author Author Migration, Doctor Organization [facility] Address Unknown Phone Unavailable Care Team Providers Care Construction Secretary Name Role Phone Migration, Doctor Unavailable Unavailable PROBLEMS Type Condition ICD9-CM Code HXS03-YP Code Onset Dates Condition Status SNOMED Code Problem Coronary artery disease I25.10 Active 90450844 Problem Hypertension I10 Active 32186921 Problem Other chronic pain G89.29 Active 30641979 Problem Hyperlipidemia E78.5 Active 46195180 Problem Type 2 diabetes mellitus without complication, without long-term current use of insulin E11.9 Active 268181760 Problem Low back pain M54.5 Active 577739388 Problem Pharyngeal dysphagia R13.13 Active 51492415311749 Problem Anxiety F41.9 Active 49229689 Problem Peripheral vascular disease I73.9 Active 891103125 Problem Suprapubic catheter Z93.59 Active 442296475 Problem Reactive depression F32.9 Active 26547578 Problem Neurogenic bladder N31.9 Active 003078326 Problem Ventral hernia without obstruction or gangrene K43.9 Active 599736214 Problem Insomnia G47.00 Active 690217850 Problem Paroxysmal atrial fibrillation I48.0 Active 183308061 Problem 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 [address] [place] [id number] Jun, Via [facility] [address] [facility] [place] [id number] March, [facility] [address] [id number] [address] Feb, Other chronic pain G89.29 [facility] [address] [id number], [place] [address] Feb, Anxiety F41.9 [facility] [address] [id number], [place] [address] Feb, Other chronic pain G89.29 Via [facility] [employer] [facility] [facility] [address] [place] [id number] Feb, Neurogenic bladder N31.9 and Suprapubic catheter Z93.59 [facility] [address] [id number], [place] [address] Jan, Anxiety F41.9 [facility] [address] [id number] [place] [address] Dec, Anxiety F41.9 [facility] [address] [id number] [place] [address] Dec, Other chronic pain G89.29 and Anxiety F41.9 [facility] [address] [facility] [id number] [place] [address] Dec, Via [employer] [address] [place] [id number] Dec, Neurogenic bladder N31.9 and Suprapubic catheter Z93.59 [facility] [address] [facility] [id number] [place] [address] Nov, Other chronic pain G89.29 and Anxiety F41.9 [facility] [address] [facility] [id number] [place] [address] Nov, Via [employer] [address] [place] [id number] Nov, Suprapubic catheter Z93.59 [facility] [address] [facility] [id number] [place] [address] Oct, Other chronic pain G89.29 and Anxiety F41.9 [facility] [address] [facility] [id number] [place] [address] Oct, [facility] [address] [facility] [id number] [place] [address] Oct, Suprapubic catheter Z93.59 [facility] [address] [facility] [id number] [place] [address] Oct, Via [employer] [address] [place] [id number] Oct, [facility] [address] [id number], [place] [address] Oct, Anxiety F41.9 [facility] [address] [id number] [place] [address] Oct, Anxiety F41.9 Via [employer] [address] [place] [id number] Oct, Other chronic pain G89.29 [facility] [address] [id number] [place] [address] Sep, Other chronic pain G89.29 Via [employer] [facility] [address] [place] [id number] Sep, Suprapubic catheter Z93.59 and Cervicalgia M54.2 [facility] [address] [id number], [place] [address] Sep, [facility] [address] [id number], [place] [address] Sep, [facility] [address] [facility] [id number], [place] [address] Sep, Via [facility] [address] [place] [id number] Aug, Cystitis N30.90 [facility] [address] [id number], [place] [address] Aug, [facility] [address] [id number], [place] [address] Aug, Other chronic pain G89.29 [facility] [address] [id number], [place] [address] Aug, Via [employer] [address] [place] [id number] Aug, Encounter for suprapubic catheter care Z43.5 [facility] [address]005[address], [place] [address] 20 Jul, 2018 Via [facility] [address] [place] [id number] Jul, [facility] [id number], [place] [address] Jul, Other chronic pain G89.29 [facility] [id number], [place] [address] Jul, [facility] [id number], [place] [address] Jul, Via [facility] [address] [place] [id number] Jun, 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 [id number] [place] [address] Jun, Other chronic pain G89.29 [id number] [place] [address] Jun, Via [facility] [address] [place] [id number] May, Anxiety F41.9 ; Type 2 diabetes mellitus without complication, without long-term current use of insulin E11.9 ; Hypertension I10 ; Low back pain M54.5 ; Paroxysmal atrial fibrillation I48.0 and 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 [id number], [place] [address] May, Other chronic pain G89.29 Via [facility] [address] [place] [id number] May, Low back pain M54.5 [id number], [place] [address] May, [id number], [place] [address] Apr, Other chronic pain G89.29 [id number], [place] [address] Apr, [facility] [address] [id number], [place] [address] Apr, Via [facility] [facility] [address] [place] [id number] 19 Apr, 2018 Closed compression fracture of L3 lumbar vertebra with routine healing, subsequent encounter S32.030D [facility] [address] [place] [id number] 14 Apr, 2018 Low back pain M54.5 Via [facility] [address] [place] [id number] 12 Apr, 2018 Coccydynia M53.3 [facility] [address] [id number] [place] [address] March, [facility] [id number] [place] [address] March, Other chronic pain G89.29 [facility] [address] [id number] [place] [address] March, [facility] [address] [id number], [place] [address] March, [facility] [address] [id number] [place] [address] Feb, [facility] [address] [facility] [id number], [place] [address] Feb, Other chronic pain G89.29 Via [facility] [employer] [facility] [address] [place] [id number] Feb, Other chronic pain G89.29 and Anxiety F41.9 [facility] [address] [id number], [place] [address] Feb, [facility] [address] [facility] [id number] [place] [address] Jan, [facility] [address] [facility] [id number], [place] [address] Jan, [facility] [address] [facility] [id number], [place] [address] Jan, [facility] [address] [facility] [id number], [place] [address] Jan, [facility] [address] [id number], [place] [address] Dec, Via [employer] [facility] [address] [place] [address] Dec, Peripheral vascular disease I73.9 ; 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 ; Other chronic pain G89.29 ; Anxiety F41.9 ; Reactive depression F32.9 ; Insomnia G47.00 and Type 2 diabetes mellitus without complication, without long-term current use of insulin E11.9 [address] [id number] [place] [address] Nov, [facility] [address] [id number][place] [address] Nov, Anxiety F41.9 [facility] [address] [facility] [id number], [place] [address] Nov, [facility] [address] [id number][place] [id number] Nov, Anxiety F41.9 Via [employer] [address] [facility] [place] [id number] Nov, Status post surgery Z98.890 ; Confused R41.0 ; Anxiety F41.9 and Other chronic pain G89.29 [facility] [address] [id number] [id number] Nov, Other chronic pain G89.29 [facility] [address] [facility] [id number], [place] [address] Oct, [facility] [id number] [place] [id number] Oct, Other chronic pain G89.29 [facility] [address] [facility] [id number], [place] [address] Oct, Anxiety F41.9 [facility] [id number][place] [id number] Sep, Other chronic pain G89.29 [facility] [id number] [place] [id number] Sep, Via [employer] [facility] [address] [place] [id number] Aug, Dysuria R30.0 and Anxiety F41.9 [facility] [id number] [place] [address] Aug, [facility] [id number] [place] [id number] Aug, Other chronic pain G89.29 [facility] [id number] [place] [address] Jul, Other chronic pain G89.29 [facility] [id number] [place] [id number] Jun, [facility] [id number] [place] [id number] Jun, Other chronic pain G89.29 [facility] [id number] [place] [address] Jun, [facility] [id number], [place] [address] May, Other chronic pain G89.29 [facility] [id number] [place] [address] Apr, Other chronic pain G89.29 Via [facility] [address] [place] [id number] Apr, Reactive depression F32.9 and Pharyngeal dysphagia R13.13 [facility] [address] [id number], [place] [address] Apr, Urinary tract infection without hematuria, site unspecified N39.0 [facility] [id number] [place] [address] March, Other chronic pain G89.29 [facility] [id number], [place] [address] Feb, Other chronic pain G89.29 [facility] [id number], [place] [address] Feb, [facility] [id number] [place] [id number] Feb, Via [employer] [address] [place] [id number] Feb, Dysuria R30.0 and Ventral hernia without obstruction or gangrene K43.9 [facility] [id number] [place] [address] Jan, Other chronic pain G89.29 [facility] [id number] [place] [id number] Dec, Other chronic pain G89.29 [facility] [id number] [place] [address] Nov, Other chronic pain G89.29 Via [facility] [address] [place] [id number] Nov, Lymphadenitis I88.9 [facility] [id number] [place] [address] Nov, Other chronic pain G89.29 [facility] [id number], [place] [address] Nov, [facility] [id number] [place] [id number] Nov, Other chronic pain G89.29 Via [facility] [address] [place] [id number] Oct, Low back pain M54.5 ; Hypertension I10 and Type 2 diabetes mellitus without complication, without long-term current use of insulin E11.9 [facility] [id number] [place] [address] Oct, [facility] [address] [facility] [id number], [place] [address] Oct, [facility] [address] [facility] [id number], [place] [address] Oct, [facility] [address] [facility] [id number], [place] [address] Oct, [facility] [address] [facility] [id number], [place] [address] Sep, [facility] [address] [facility] [id number], [place] [address] Sep, [facility] [address] [facility] [id number], [place] [address] Aug, Other chronic pain G89.29 [facility] [address] [facility] [id number], [place] [address] Jul, [facility] [id number], [place] [address] Jul, [facility] [id number], [place] [address] Jul, [facility] [id number], [place] [address] Jun, [facility] [address] [id number], [place] [address] Jun, Via [facility] [address] [facility] [address] [place] [id number] Jun, Low back pain M54.5 ; Other chronic pain G89.29 and Coronary artery disease I25.10 [facility] [address] [facility] [id number], [place] [address] Jun, [facility] [address] [facility] [id number], [place] [address] May, [facility] [address] [id number], [place] [address] May, [facility] [id number], [place] [address] May, Other chronic pain G89.29 [facility] [id number], [place] [address] May, [facility] [id number], [place] [address] 28 Apr, 2016 [facility] [id number] [place] [address] 17 Apr, 2016 Acute cystitis without hematuria N30.00 [facility] [id number] [place] [address] 16 Apr, 2016 Acute cystitis without hematuria N30.00 ; Coronary artery disease I25.10 ; Low back pain M54.5 and Other chronic pain G89.29 [facility] [address]00565100[place], [place] [address] Apr, Other chronic pain G89.29 [facility] [id number], [place] [address] March, Other chronic pain G89.29 [facility] [id number], [place] [address] 18 Feb, 2016 [facility] [id number], [place] [address] 15 Feb, 2016 Arthritis M19.90 [facility] [id number], [place] [address] Feb, [facility] [id number], [place] [address] 30 Jan, 2016 [facility] [id number], [place] [address] Jan, [facility] [id number], [place] [address] Jan, Other chronic pain G89.29 [facility] [address]00565100[place], [place] [address] Jan, Hypertension I10 ; Coronary artery disease I25.10 and Insomnia G47.00 [facility] [address]00565100[place], [place] [address] Jan, [facility] [id number] [place] [address] Dec, Right hip pain M25.551 [facility] [id number] [place] [address] Dec, [facility] [id number] [place] [address] Dec, [facility] [id number] [place] [address] Dec, [facility] [id number] [place] [address] Dec, Other chronic pain G89.29 [facility] [id number] [place] [address] Dec, [facility] [id number] [place] [address] Nov, [facility] [id number], [place] [address] Nov, Other chronic pain G89.29 [facility] [id number] [place] [address] Nov, Right hip pain M25.551 and Coronary artery disease I25.10 [facility] [id number] [place] [address] Nov, Other chronic pain G89.29 [facility] [address]00565100[place], [place] [address] Oct, [facility] [id number] [place] [address] Oct, [facility] [id number], [place] [address] Sep, [facility] [id number] [place] [address] Sep, [facility] [id number] [place] [address] Aug, [facility] [id number] [place] [address] Aug, Hypertension I10 ; Coronary artery disease I25.10 and Arthritis M19.90 [facility] [id number] [place] [address] Jun, [facility] [id number] [place] [id number] Jun, Essential hypertension, benign 401.1 ; Other chronic pain 338.29 and Chronic airway obstruction, not elsewhere classified 496 [facility] [id number] [address] Jun, [facility] [id number] [place] [address] Jun, [facility] [id number] [address] Jun, [facility] [id number] [address] May, [facility] [id number] [address] May, [facility] [id number] [place] [id number] Apr, [facility] [id number] [address] 16 Apr, 2015 [facility] [id number] [address] Apr, [facility] [address] [id number] [place] [address] March, [facility] [address] [id number] [place] [address] March, [facility] [address] [id number] [place] [address] March, [facility] [address] [id number] [place] [address] March, [facility] [address] [id number] [place] [address] March, Sialadenitis 527.2 [facility] [address] [id number] [place] [address] Feb, [facility] [address] [id number] [place] [address] Feb, [facility] [address] [id number] [place] [address] Feb, [facility] [address] [id number] [place] [address] Feb, [facility] [address] [facility] [id number] [place] [address] Feb, [facility] [address] [id number], [place] [address] Jan, [facility] [address] [id number], [place] [address] Jan, [facility] [address] [id number] [place] [address] Jan, [facility] [address] [id number] [place] [address] Jan, [facility] [address] [facility] [id number] [place] [address] Jan, [facility] [address] [id number] [place] [address] Jan, [facility] [place] [facility] [address] [id number] [place] [address] Dec, 2014 [facility] [place] [facility] [address] [id number] [place] [address] Dec, 2014 [facility] [place] [facility] [address] [id number] [place] [address] Dec, 2014 [facility] [place] [facility] [address] [id number] [place] [address] Dec, 2014 [facility] [place] [facility] [address] [id number] [place] [address] Dec, 2014 [facility] [place] [facility] [address] [id number] [place] [address] Dec, 2014 [facility] [place] [facility] [address] [id number] [place] [address] Nov, [facility] [place] [facility] [address] [id number] [place] [address] Nov, [facility] [place] [facility] [address] [id number] [place] [address] Nov, [facility] [place] [facility] [address] [id number] [place] [address] Nov, [facility] [place] [facility] [address] [id number] [place] [address] Nov, [facility] [place] [facility] [address] [id number] [place] [address] Nov, [facility] [place] [facility] [address] [id number] [place] [address] Nov, [facility] [place] [facility] [address] [id number] [place] [address] Nov, [facility] [place] [facility] [address] [id number] [place] [address] Nov, [facility] [place] [facility] [address] [id number] [place] [address] Nov, [facility] [place] [facility] [address] [id number] [place] [address] Nov, [facility] [place] [facility] [address] [id number] [place] [address] Nov, [facility] [place] [facility] [address] [id number] [place] [address] Nov, [facility] [place] [facility] [address] [id number] [place] [address] Nov, [facility] [place] [facility] [address] [id number] [place] [address] Oct, [facility] [place] [facility] [address] [id number] [place] [address] Oct, [facility] [place] [facility] [address] [id number] [place] [address] Oct, [facility] [place] [facility] [address] [id number] [place] [address] 18 Oct, 2014 [facility] [place] [facility] [address] [id number] [place] [address] 18 Oct, 2014 [facility] [place] [facility] [address] [id number] [place] [address] 17 Oct, 2014 [facility] [place] [facility] [address] [id number] [place] [address] 17 Oct, 2014 [facility] [place] [facility] [address] [id number] [place] [address] 10 Oct, 2014 [facility] [place] [facility] [address] [id number] [place] [address] Oct, [facility] [place] [facility] [address] [id number] [place] [address] Sep, [facility] [place] [facility] [address] [id number] [place] [address] Sep, [facility] [place] [facility] [address] [id number] [place] [address] Sep, [facility] [place] [facility] [address] [id number] [place] [address] Sep, [facility] [place] [facility] [address] [id number] [place] [address] Sep, [facility] [place] [facility] [address] [id number] [place] [address] Sep, [facility] [place] [facility] [address] [id number] [place] [address] Sep, [facility] [place] [facility] [address] [id number] [place] [address] Sep, [facility] [place] [facility] [address] [id number] [place] [address] Sep, [facility] [place] [facility] [address] [id number] [place] [address] Sep, [facility] [place] [facility] [address] [id number] [place] [address] Sep, [facility] [place] [facility] [address] [facility] [id number] [place] [address] Sep, [facility] [place] [facility] [address] [id number] [place] [address] Aug, [facility] [place] [facility] [address] [id number], [place] [address] Aug, [facility] [place] [facility] [address] [id number] [place] [address] Aug, [facility] [place] [facility] [address] [id number] [place] [address] Aug, [facility] [place] [facility] [address] [id number], [place] [address] Aug, [facility] [place] [facility] [address] [id number] [place] [address] 28 Aug, 2014 [facility] [place] [facility] [address] [id number] [place] [address] Aug, [facility] [place] [facility] [address] [id number] [place] [address] 17 Aug, 2013 [facility] [place] [facility] [address] [id number] [place] [address] 30 Jul, 2013 [facility] [place] [facility] [address] [id number] [place] [address] 30 Jul, 2013 [facility] [place] [facility] [address] [id number] [place] [address] 30 Jul, 2013 [facility] [place] [facility] [address] [id number] [place] [address] 30 Jul, 2013 [facility] [place] [facility] [address] [id number] [place] [address] 25 Jul, 2013 [facility] [place] [facility] [address] [id number] [place] [address] 25 Jul, 2013 [facility] [place] [facility] [address] [id number] [place] [address] 15 Jul, 2014 [facility] [place] [facility] [address] [id number] [place] [address] 15 Jul, 2014 [facility] [place] [facility] [address] [id number] [place] [address] 11 Jul, 2014 [facility] [place] [facility] [address] [id number] [place] [address] Jul, [facility] [place] [facility] [address] [id number] [place] [address] Jun, [facility] [place] [facility] [address] [id number] [place] [address] Jun, [facility] [place] [facility] [address] [id number] [place] [address] Jun, [facility] [place] [facility] [address] [id number] [place] [address] Jun, [facility] [place] [facility] [address] [id number] [place] [address] Jun, [facility] [place] [facility] [address] [id number] [place] [address] Jun, [facility] [place] [facility] [address] [id number] [place] [address] Jun, [facility] [place] [facility] [address] [id number] [place] [address] Jun, [facility] [place] [facility] [address] [id number] [place] [address] Jun, [facility] [place] [facility] [address] [id number] [place] [address] Jun, [facility] [place] [facility] [address] [id number] [place] [address] Jun, [facility] [place] [facility] [address] [id number] [place] [address] Jun, [facility] [place] [facility] [address] [id number] [place] [address] Jun, [facility] [place] [facility] [address] [id number] [place] [address] Jun, [facility] [place] [facility] [address] [id number] [place] [address] Jun, [facility] [place] [facility] [address] [id number] [place] [address] Jun, [facility] [place] [facility] [address] [id number] [place] [address] Jun, [facility] [place] [facility] [address] [id number] [place] [address] Jun, [facility] [place] [facility] [address] [id number] [place] [address] Jun, [facility] [place] [facility] [address] [id number] [place] [address] Jun, [facility] [place] [facility] [address] [id number] [place] [address] Jun, [facility] [place] [facility] [address] [id number] [place] [address] Jun, [facility] [place] [facility] [address] [id number] [place] [address] May, [facility] [place] [facility] [address] [id number] [place] [address] May, [facility] [place] [facility] [address] [id number] [place] [address] May, [facility] [place] [facility] [address] [id number] [place] [address] May, [facility] [place] [facility] [address] [id number] [place] [address] May, [facility] [place] [facility] [address] [id number] [place] [address] May, [facility] [place] [facility] [address] [id number] [place] [address] May, [facility] [place] [facility] [address] [id number] [place] [address] May, [facility] [place] [facility] [address] [id number] [place] [address] May, [facility] [place] [facility] [address] [id number] [place] [address] May, [facility] [place] [facility] [address] [id number] [place] [address] May, [facility] [place] [facility] [address] [id number] [place] [address] May, [facility] [place] [facility] [address] [id number] [place] [address] May, [facility] [place] [facility] [address] [id number] [place] [address] Apr, [facility] [place] [facility] [address] [id number] [place] [address] Apr, [facility] [place] [facility] [address] [id number] [place] [address] Apr, [facility] [place] [facility] [address] [id number] [place] [address] Apr, [facility] [place] [facility] [address] [id number] [place] [address] Apr, [facility] [place] [facility] [address] [id number] [place] [address] Apr, [facility] [place] [facility] [address] [id number] [place] [address] Apr, [facility] [place] [facility] [address] [id number] [place] [address] Apr, [facility] [place] [facility] [address] [id number] [place] [address] Apr, [facility] [place] [facility] [address] [id number] [place] [address] March, [facility] [place] [facility] [address] [id number] [place] [address] March, [facility] [place] [facility] [address] [id number] [place] [address] March, [facility] [place] [facility] [address] [id number] [place] [address] March, [facility] [place] [facility] [address] [id number] [place] [address] March, [facility] [place] [facility] [address] [id number] [place] [address] March, [facility] [address] [id number] [place] [address] March, [facility] [place] [facility] [address] [id number] [place] [address] March, [facility] [place] [facility] [address] [id number] [place] [address] March, [facility] [place] [facility] [address] [id number] [place] [address] March, [facility] [place] [facility] [address] [id number] [place] [address] March, [facility] [place] [facility] [address] [id number] [place] [address] March, [facility] [address] [id number] [place] [address] March, [facility] [place] [facility] [address] [id number] [place] [address] March, [facility] [place] [facility] [address] [id number] [place] [address] March, [facility] [place] [facility] [address] [id number] [place] [address] March, [facility] [place] [facility] [address] [id number] [place] [address] March, [facility] [place] [facility] [address] [id number] [place] [address] March, [facility] [place] [facility] [address] [id number] [place] [address] March, [facility] [place] [facility] [address] [id number] [place] [address] March, [facility] [place] [facility] [address] [id number] [place] [address] Feb, [facility] [place] [facility] [address] [id number] [place] [address] 29 Feb, 2014 [facility] [place] [facility] [address] [id number] [place] [address] Feb, [facility] [place] [facility] [address] [id number] [place] [address] Feb, [facility] [place] [facility] [address] [id number] [place] [address] Feb, [facility] [place] [facility] [address] [id number] [place] [address] Feb, [facility] [place] [facility] [address] [id number] [place] [address] Feb, [facility] [place] [facility] [address] [id number] [place] [address] Feb, [facility] [place] [facility] [address] [id number] [place] [address] Jan, [facility] [place] [facility] [address] [id number] [place] [address] Jan, [facility] [place] [facility] [address] [id number] [place] [address] Jan, [facility] [place] [facility] [address] [id number] [place] [address] 24 Jan, 2014 [facility] [place] [facility] [address] [id number] [place] [address] Jan, [facility] [place] [facility] [address] [id number] [place] [address] Jan, [facility] [place] [facility] [address] [id number] [place] [address] Jan, [facility] [place] [facility] [address] [id number] [place] [address] Jan, [facility] [place] [facility] [address] [id number] [place] [address] Jan, [facility] [place] [facility] [address] [id number] [place] [address] Jan, [facility] [place] [facility] [address] [id number] [place] [address] Dec, [facility] [place] [facility] [address] [id number] [place] [address] Dec, [facility] [place] [facility] [address] [id number] [place] [address] Dec, [facility] [place] [facility] [address] [id number] [place] [address] Dec, [facility] [place] [facility] [address] [id number] [place] [address] Dec, [facility] [place] [facility] [address] [id number] [place] [address] Dec, [facility] [place] [facility] [address] [id number] [place] [address] Dec, [facility] [place] [facility] [address] [id number] [place] [address] Dec, [facility] [place] [facility] [address] [id number] [place] [address] Nov, [facility] [place] [facility] [address] [id number] [place] [address] Nov, [facility] [place] [facility] [address] [id number] [place] [address] Nov, [facility] [place] [facility] [address] [id number] [place] [address] Nov, [facility] [place] [facility] [address] [id number] [place] [address] Nov, [facility] [place] [facility] [address] [id number] [place] [address] Nov, [facility] [place] [facility] [address] [id number] [place] [address] Nov, [facility] [address] [id number] [place] [address] Nov, [facility] [place] [facility] [address] [id number] [place] [address] Nov, [facility] [address] [id number] [place] [address] Nov, [facility] [address] [id number] [place] [address] Nov, [facility] [address] [id number] [place] [address] Nov, [facility] [address] [id number] [place] [address] Nov, [facility] [address] [id number] [place] [address] Oct, [facility] [address] [id number] [place] [address] 30 Oct, 2013 [facility] [address] [id number] [place] [address] Oct, [facility] [address] [id number] [place] [address] Oct, [facility] [place] [facility] [address] [id number] [place] [address] Oct, [facility] [address] [id number] [place] [address] Oct, [facility] [place] [facility] [address] [id number] [place] [address] Oct, [facility] [place] [facility] [address] [id number] [place] [address] Oct, [facility] [place] [facility] [address] [id number] [place] [address] Oct, [facility] [address] [id number] [place] [address] Oct, [facility] [place] [facility] [address] [id number] [place] [address] Oct, [facility] [place] [facility] [address] [id number] [place] [address] Oct, [facility] [place] [facility] [address] [id number] [place] [address] Oct, [facility] [place] [facility] [address] [id number] [place] [address] Oct, [facility] [place] [facility] [address] [id number] [place] [address] Sep, [facility] [place] [facility] [address] [id number] [place] [address] Sep, [facility] [place] [facility] [address] [id number], [place] [address] Sep, [facility] [place] [facility] [address] [id number] [place] [address] Sep, [facility] [place] [facility] [address] [id number], [place] [address] Sep, [facility] [place] [facility] [address] [id number], [place] [address] Sep, [facility] [place] [facility] [address] [id number], [place] [address] Sep, [facility] [place] [facility] [address] [id number], [place] [address] Sep, [facility] [place] [facility] [address] [id number], [place] [address] Sep, [facility] [place] [facility] [address] [id number], [place] [address] Sep, [facility] [place] [facility] [address] [id number] [place] [address] 24 Aug, 2012 [facility] [place] [facility] [address] [id number] [place] [address] 24 Aug, 2012 [facility] [place] [facility] [address] [id number] [place] [address] 24 Aug, 2012 [facility] [place] [facility] [address] [id number] [place] [address] 24 Aug, 2012 [facility] [place] [facility] [address] [id number] [place] [address] 23 Aug, 2012 [facility] [place] [facility] [address] [id number] [place] [address] 23 Aug, 2012 [facility] [place] [facility] [address] [id number] [place] [address] 23 Aug, 2012 [facility] [place] [facility] [address] [id number] [place] [address] 23 Aug, 2012 [facility] [place] [facility] [address] [id number] [place] [address] 22 Aug, 2012 [facility] [place] [facility] [address] [id number] [place] [address] 22 Aug, 2012 [facility] [place] [facility] [address] [id number] [place] [address] 18 Aug, 2012 [facility] [place] [facility] [address] [id number] [place] [address] 18 Aug, 2012 [facility] [place] [facility] [address] [id number], [place] [address] 18 Aug, 2012 [facility] [place] [facility] [address] [id number] [place] [address] 18 Aug, 2012 [facility] [place] [facility] [address] [id number] [place] [address] 17 Aug, 2012 [facility] [place] [facility] [address] [id number], [place] [address] 14 Aug2012 [facility] [place] [facility] [address] [id number] [place] [address] 14 Aug, 2013 [facility] [place] [facility] [address] [id number] [place] [address] Aug, [facility] [place] [facility] [address] [id number] [place] [address] 20 Jul, 2013 [facility] [place] [facility] [address] [id number] [place] [address] 19 Jul, 2013 [facility] [place] [facility] [address] [id number] [place] [address] 18 Jul, 2013 [facility] [place] [facility] [address] [id number] [place] [address] 11 Jul, 2013 [facility] [place] [facility] [address] [id number] [place] [address] Jul, [facility] [place] [facility] [address] [id number] [place] [address] Jun, [facility] [place] [facility] [address] [id number] [place] [address] Jun, [facility] [place] [facility] [address] [id number] [place] [address] Jun, [facility] [place] [facility] [address] [id number] [place] [address] 15 Jun, 2013 [facility] [place] [facility] [address] [id number] [place] [address] 14 Jun, 2013 [facility] [place] [facility] [address] [id number] [place] [address] Jun, [facility] [place] [facility] [address] [id number] [place] [address] Jun, [facility] [place] [facility] [address] [id number] [place] [address] 08 Jun, 2013 [facility] [place] [facility] [address] [id number] [place] [address] Jun, [facility] [place] [facility] [address] [id number] [place] [address] Jun, [facility] [place] [facility] [address] [id number] [place] [address] May, [facility] [place] [facility] [address] [id number] [place] [address] May, [facility] [place] [facility] [address] [id number] [place] [address] May, [facility] [place] [facility] [address] [id number] [place] [address] May, [facility] [place] [facility] [address] [id number] [place] [address] May, [facility] [place] [facility] [address] [id number] [place] [address] May, [facility] [place] [facility] [address] [id number] [place] [address] May, [facility] [place] [facility] [address] [id number] [place] [address] May, [facility] [place] [facility] [address] [id number] [place] [address] May, [facility] [place] [facility] [address] [id number] [place] [address] Apr, [facility] [place] [facility] [address] [id number] [place] [address] Apr, [facility] [place] [facility] [address] [id number] [place] [address] Apr, [facility] [place] [facility] [address] [id number] [place] [address] Apr, [facility] [place] [facility] [address] [id number] [place] [address] Apr, [facility] [place] [facility] [address] [id number] [place] [address] Apr, [facility] [address] [id number] [place] [address] Apr, [facility] [address] [id number] [place] [address] March, [facility] [address] [id number] [place] [address] Feb, [facility] [address] [id number] [place] [address] Feb, [facility] [address] [id number] [place] [address] Feb, [facility] [address] [id number] [place] [address] Jan, [facility] [address] [id number] [place] [address] Jan, [facility] [address] [id number] [place] [address] Jan, [facility] [address] [id number] [place] [address] Jan, [facility] [address] [id number] [place] [address] Jan, [facility] [address] [id number] [place] [address] Jan, [facility] [address] [id number] [place] [address] Jan, [facility] [address] [id number] [place] [address] Jan, [facility] [address] [id number] [place] [address] Dec, [facility] [address] [id number] [place] [address] Dec, [facility] [address] [id number] [place] [address] 13 Dec, 2012 [facility] [place] [facility] [address] [id number] [place] [address] Dec, [facility] [place] [facility] [address] [id number] [place] [address] 07 Dec, 2012 [facility] [place] [facility] [address] [id number] [place] [address] 06 Dec, 2012 [facility] [place] [facility] [address] [id number] [place] [address] Dec, [facility] [place] [facility] [address] [id number] [place] [address] Nov, [facility] [place] [facility] [address] [id number] [place] [address] Nov, [facility] [place] [facility] [address] [id number] [place] [address] Nov, [facility] [place] [facility] [address] [id number] [place] [address] Nov, [facility] [place] [facility] [address] [id number] [place] [address] Nov, [facility] [place] [facility] [address] [id number] [place] [address] Nov, [facility] [place] [facility] [address] [id number] [place] [address] Nov, [facility] [place] [facility] [address] [id number] [place] [address] Oct, [facility] [place] [facility] [address] [id number] [place] [address] Oct, [facility] [place] [facility] [address] [id number] [place] [address] Oct, [facility] [place] [facility] [address] [id number] [place] [address] Oct, [facility] [place] [facility] [address] [id number] [place] [address] Oct, [facility] [place] [facility] [address] [id number] [place] [address] Oct, [facility] [place] [facility] [address] [id number] [place] [address] Oct, [facility] [place] [facility] [address] [id number] [place] [address] Oct, [facility] [place] [facility] [address] [id number] [place] [address] Oct, [facility] [place] [facility] [address] [id number] [place] [address] Oct, [facility] [place] [facility] [address] [id number] [place] [address] Oct, [facility] [place] [facility] [address] [id number] [place] [address] Oct, [facility] [place] [facility] [address] [id number] [place] [address] Sep, [facility] [place] [facility] [address] [facility] [id number] [place] [address] Sep, [facility] [place] [facility] [address] [id number] [place] [address] Sep, [facility] [place] [facility] [address] [id number] [place] [address] Sep, [facility] [place] [facility] [address] [id number] [place] [address] Sep, [facility] [place] [facility] [address] [id number] [place] [address] Sep, [facility] [place] [facility] [address] [id number] [place] [address] Sep, [facility] [place] [facility] [address] [id number] [place] [address] Sep, [facility] [place] [facility] [address] [id number] [place] [address] Sep, [facility] [place] [facility] [address] [id number] [place] [address] Sep, [facility] [place] [facility] [address] [id number] [place] [address] Sep, [facility] [place] [facility] [address] [id number] [place] [address] Aug, [facility] [place] [facility] [address] [id number] [place] [address] Aug, [facility] [place] [facility] [address] [id number] [place] [address] Aug, [facility] [place] [facility] [address] [id number] [place] [address] Aug, [facility] [place] [facility] [address] [id number] [place] [address] Aug, [facility] [place] [facility] [address] [id number] [place] [address] Aug, [facility] [place] [facility] [address] [facility] [id number] [place] [address] Aug, [facility] [place] [facility] [address] [id number] [address] Aug, [facility] [place] [facility] [address] [id number] [place] [address] Aug, [facility] [place] [facility] [address] [id number] [place] [address] Aug, [facility] [place] [facility] [address] [id number], [place] [address] Jul, [facility] [place] [facility] [address] [id number], [place] [address] Jul, [facility] [place] [facility] [address] [id number] [place] [address] Jul, [facility] [place] [facility] [address] [id number] [place] [address] Jul, [facility] [place] [facility] [address] [id number] [place] [address] Jun, [facility] [place] [facility] [address] [id number] [place] [address] Jun, [facility] [place] [facility] [address] [id number] [place] [address] Jun, [facility] [place] [facility] [address] [id number] [place] [address] Jun, [facility] [place] [facility] [address] [id number] [place] [address] Jun, [facility] [place] [facility] [address] [id number] [place] [address] Jun, [facility] [place] [facility] [address] [id number] [place] [address] Jun, [facility] [place] [facility] [address] [id number] [place] [address] May, [facility] [place] [facility] [address] [id number] [place] [address] May, [facility] [place] [facility] [address] [id number] [place] [address] May, [facility] [place] [facility] [address] [id number] [place] [address] May, [facility] [place] [facility] [address] [id number] [place] [address] May, [facility] [place] [facility] [address] [id number] [place] [address] Apr, [facility] [place] [facility] [address] [id number] [place] [address] 18 Apr, 2012 [facility] [address] [id number] [place] [address] Apr, [facility] [address] [id number] [place] [address] Apr, [facility] [address] [id number] [place] [address] Apr, [facility] [address] [id number] [place] [address] March, [facility] [address] [id number] [place] [address] March, [facility] [address] [id number] [place] [address] March, [facility] [address] [id number] [place] [address] March, [facility] [address] [id number] [place] [address] March, [facility] [address] [id number] [place] [address] March, [facility] [address] [id number] [place] [address] March, [facility] [address] [id number] [place] [address] March, [facility] [address] [id number] [place] [address] March, [facility] [place] [facility] [address] [id number] [place] [address] March, [facility] [address] [id number] [place] [address] Feb, [facility] [address] [id number] [place] [address] Feb, [facility] [address] [id number] [place] [address] Feb, [facility] [place] [facility] [address] [id number] [place] [address] Feb, [facility] [place] [facility] [address] [id number] [place] [address] Feb, [facility] [place] [facility] [address] [id number] [place] [address] Feb, [facility] [place] [facility] [address] [id number] [place] [address] Feb, [facility] [place] [facility] [address] [id number] [place] [address] Feb, [facility] [place] [facility] [address] [id number] [place] [address] Feb, [facility] [place] [facility] [address] [id number] [place] [address] Jan, [facility] [place] [facility] [address] [id number] [place] [address] Jan, [facility] [place] [facility] [address] [id number] [place] [address] Jan, [facility] [place] [facility] [address] [id number] [place] [address] Jan, [facility] [place] [facility] [address] [id number] [place] [address] Dec, [facility] [place] [facility] [address] [id number] [place] [address] Dec, [facility] [place] [facility] [address] [id number] [place] [address] Nov, [facility] [place] [facility] [address] [id number] [place] [address] Nov, [facility] [place] [facility] [address] [id number], [place] [address] Nov, [facility] [id number], [place] [address] Nov, [facility] [id number], [place] [address] Nov, [facility] [id number], [place] [address] Oct, [facility] [id number], [place] [address] Oct, [facility] [id number] [place] [address] Oct, [facility] [id number], [place] [address] Oct, [facility] [id number], [place] [address] Oct, [facility] [id number], [place] [address] Oct, [facility] [id number], [place] [address] Oct, [facility] [address] [id number], [place] [address] Oct, [facility] [address] [id number], [place] [address] Sep, IMMUNIZATIONS No Known Immunizations SOCIAL HISTORY Never Assessed REASON FOR VISIT [facility] [place] VITAL SIGNS MEDICATIONS Unknown Medications RESULTS No Results PROCEDURES No Known procedures INSTRUCTIONS MEDICATIONS ADMINISTERED No Known Medications MEDICAL (GENERAL) HISTORY Type Description Date 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
--- OUTSIDE RECORDS SUMMARY | 2019-04-16 15:20 | XMS REPORT ---
Author Author Migration, Doctor Organization [facility] Address Unknown Phone Unavailable Care Team Providers Care Supervisor Drapery Hanging Name Role Phone Migration, Doctor Unavailable Unavailable PROBLEMS Type Condition ICD9-CM Code JEG49-CG Code Onset Dates Condition Status SNOMED Code Problem Coronary artery disease I25.10 Active 84100797 Problem Hypertension I10 Active 25264168 Problem Other chronic pain G89.29 Active 42656012 Problem Hyperlipidemia E78.5 Active 76146388 Problem Type 2 diabetes mellitus without complication, without long-term current use of insulin E11.9 Active 414311939 Problem Low back pain M54.5 Active 405387806 Problem Pharyngeal dysphagia R13.13 Active 26133435894256 Problem Anxiety F41.9 Active 54390423 Problem Peripheral vascular disease I73.9 Active 996048435 Problem Suprapubic catheter Z93.59 Active 526680815 Problem Reactive depression F32.9 Active 82400854 Problem Neurogenic bladder N31.9 Active 056360306 Problem Ventral hernia without obstruction or gangrene K43.9 Active 079001019 Problem Insomnia G47.00 Active 518983306 Problem Paroxysmal atrial fibrillation I48.0 Active 794725787 Problem 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 [id number] [address] Feb, Other chronic pain G89.29 [facility] [id number] [address] Feb, Anxiety F41.9 [facility] [id number] [address] Feb, Other chronic pain G89.29 [facility] [employer] [address] [place] [id number] Feb, Neurogenic bladder N31.9 and Suprapubic catheter Z93.59 [facility] [address] [id number] [address] Jan, Anxiety F41.9 [facility] [id number] [place] [address] Dec, Anxiety F41.9 [facility] [address] [id number] [place] [address] Dec, Other chronic pain G89.29 and Anxiety F41.9 [facility] [address] [facility] [id number] [place] [address] Dec, Via [employer] [address] [place] [address] Dec, Neurogenic bladder N31.9 and Suprapubic catheter Z93.59 [facility] [address] [facility] [id number] [place] [address] Nov, Other chronic pain G89.29 and Anxiety F41.9 [facility] [address] [facility] [id number] [place] [address] Nov, Via [employer] [address] [place] [id number] Nov, Suprapubic catheter Z93.59 [facility] [address] [facility] [id number] [place] [address] Oct, Other chronic pain G89.29 and Anxiety F41.9 [facility] [address] [facility] [id number] [place] [address] Oct, [facility] [address] [facility] [id number] [place] [address] Oct, Suprapubic catheter Z93.59 [facility] [address] [facility] [id number] [place] [address] Oct, Via [employer] [address] [place] [id number] Oct, [facility] [address] [id number] [address] Oct, Anxiety F41.9 [facility] [address] [id number] [place] [address] Oct, Anxiety F41.9 Via [employer] [address] [place] [address] Oct, Other chronic pain G89.29 [facility] [address] [id number] [place] [address] Sep, Other chronic pain G89.29 Via [employer] [address] [place] [address] Sep, Suprapubic catheter Z93.59 and Cervicalgia M54.2 [facility] [address] [id number] [address] Sep, [facility] [address] [id number] [address] Sep, [facility] [address] [facility] [id number] [address] Sep, Via [employer] [address] [place] [address] Aug, Cystitis N30.90 [facility] [address] [id number], [place] [address] Aug, [facility] [address] [id number] [address] Aug, Other chronic pain G89.29 [facility] [address] [id number] [address] Aug, Via [employer] [address] [place] [id number] Aug, Encounter for suprapubic catheter care Z43.5 [facility] [address], [place] [address] 20 Jul, 2018 Via [employer] [address] [place] [id number] Jul, [facility] [address]005[address] [address] Jul, Other chronic pain G89.29 [facility] [address]00565[address], [place] [address] Jul, [facility] [address]00565100[place] [address] Jul, Via [employer] [address] [place] [id number] Jun, 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 [id number] [place] [address] Jun, Other chronic pain G89.29 [id number] [place] [address] Jun, Via [employer] [address] [place] [id number] May, Anxiety F41.9 ; Type 2 diabetes mellitus without complication, without long-term current use of insulin E11.9 ; Hypertension I10 ; Low back pain M54.5 ; Paroxysmal atrial fibrillation I48.0 and 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 [address], [place] [address] May, Other chronic pain G89.29 Via [employer] [address] [place] [id number] May, Low back pain M54.5 [address] [place] [address] May, [address] [place] [address], [place] [address] Apr, Other chronic pain G89.29 [address] [place] [address], [place] [address] Apr, [facility] [address] [id number] [address] Apr, [facility] [employer] [address] [place] [id number] 19 Apr, 2018 Closed compression fracture of L3 lumbar vertebra with routine healing, subsequent encounter S32.030D [facility] [address] [place] [id number] 14 Apr, 2018 Low back pain M54.5 Via [employer] [address] [place] [id number] 12 Apr, 2018 Coccydynia M53.3 [facility] [address] [id number] [place] [address] March, [facility] [address] [id number] [place] [address] March, Other chronic pain G89.29 [facility] [address] [id number] [place] [address] March, [facility] [address] [id number] [address] March, [facility] [address] [id number] [place] [address] Feb, [facility] [address] [facility] [id number] [address] Feb, Other chronic pain G89.29 [facility] [employer] [address] [place] [id number] Feb, Other chronic pain G89.29 and Anxiety F41.9 [facility] [address] [id number] [address] Feb, [facility] [address] [facility] [id number] [place] [address] Jan, [facility] [address] [facility] [id number], [place] [address] Jan, [facility] [address] [facility] [id number], [place] [address] Jan, [facility] [address] [facility] [id number] [address] Jan, 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 [address] [facility] [id number] [address] Nov, [facility] [address] [id number][place] [address] Nov, Anxiety F41.9 Via [employer] [address] [facility] [place] [id number] Nov, Status post surgery Z98.890 ; Confused R41.0 ; Anxiety F41.9 and Other chronic pain G89.29 [facility] [address] [id number][place] [address] Nov, Other chronic pain G89.29 [facility] [address] [facility] [id number] [address] Oct, [facility] [id number] [place] [id number] Oct, Other chronic pain G89.29 [facility] [address] [facility] [id number] [address] Oct, Anxiety F41.9 [facility] [id number][place] [address] Sep, Other chronic pain G89.29 [facility] [id number] [place] [id number] Sep, Via [employer] [address] [place] [id number] Aug, Dysuria R30.0 and Anxiety F41.9 [facility] [id number] [place] [address] Aug, [facility] [id number] [place] [id number] Aug, Other chronic pain G89.29 [facility] [id number] [place] [address] Jul, Other chronic pain G89.29 [facility] [id number] [place] [id number] Jun, [facility] [id number] [place] [id number] Jun, Other chronic pain G89.29 [facility] [id number] [place] [address] Jun, [facility] [address], [place] [address] May, Other chronic pain G89.29 [facility] [id number] [place] [address] Apr, Other chronic pain G89.29 Via [employer] [address] [place] [id number] Apr, Reactive depression F32.9 and Pharyngeal dysphagia R13.13 [facility] [id number] [address] Apr, Urinary tract infection without hematuria, site unspecified N39.0 [facility] [id number] [place] [address] March, Other chronic pain G89.29 [facility] [address], [place] [address] Feb, Other chronic pain G89.29 [facility] [id number], [place] [address] Feb, [facility] [id number] [place] [id number] Feb, Via [employer] [address] [place] [id number] Feb, Dysuria R30.0 and Ventral hernia without obstruction or gangrene K43.9 [facility] [id number] [place] [address] Jan, Other chronic pain G89.29 [facility] [id number] [place] [id number] Dec, Other chronic pain G89.29 [facility] [id number] [place] [address] Nov, Other chronic pain G89.29 [facility] [employer] [address] [place] [address] Nov, Lymphadenitis I88.9 [facility] [id number] [place] [address] Nov, Other chronic pain G89.29 [facility] [id number] [address] Nov, [facility] [id number] [place] [id number] Nov, Other chronic pain G89.29 [facility] [employer] [address] [place] [id number] Oct, Low back pain M54.5 ; Hypertension I10 and Type 2 diabetes mellitus without complication, without long-term current use of insulin E11.9 [facility] [id number] [place] [address] Oct, [facility] [address] [facility] [id number] [address] Oct, [facility] [address] [facility] [id number] [address] Oct, [facility] [address] [facility] [id number] [address] Oct, [facility] [address] [facility] [id number] [address] Sep, [facility] [address] [facility] [id number] [address] Sep, [facility] [address] [facility] [id number] [address] Aug, Other chronic pain G89.29 [facility] [address] [facility] [id number] [address] Jul, [facility] [address], [place] [address] Jul, [facility] [id number], [place] [address] Jul, [facility] [id number], [place] [address] Jun, [facility] [id number] [address] Jun, Via [facility] [place] [address] [place] [id number] Jun, Low back pain M54.5 ; Other chronic pain G89.29 and Coronary artery disease I25.10 [facility] [address] [facility] [id number] [address] Jun, [facility] [address] [facility] [id number] [address] May, [facility] [id number] [address] May, [facility] [address], [place] [address] May, Other chronic pain G89.29 [facility] [address], [place] [address] May, [facility] [address]100[place], [place] [address] 28 Apr, 2016 [facility] [id number] [place] [address] 17 Apr, 2016 Acute cystitis without hematuria N30.00 [facility] [id number] [place] [address] 16 Apr, 2016 Acute cystitis without hematuria N30.00 ; Coronary artery disease I25.10 ; Low back pain M54.5 and Other chronic pain G89.29 [facility] [address], [place] [address] Apr, Other chronic pain G89.29 [facility] [address], [place] [address] March, Other chronic pain G89.29 [facility] [address], [place] [address] 18 Feb, 2016 [facility] [address]100[place], [place] [address] 15 Feb, 2016 Arthritis M19.90 [facility] [address]100[place], [place] [address] Feb, [facility] [id number], [place] [address] 30 Jan, 2016 [facility] [address]100[place], [place] [address] Jan, [facility] [address], [place] [address] Jan, Other chronic pain G89.29 [facility] [address]100[place], [place] [address] Jan, Hypertension I10 ; Coronary artery disease I25.10 and Insomnia G47.00 [facility] [address]100[place], [place] [address] Jan, [facility] [id number] [place] [address] Dec, Right hip pain M25.551 [facility] [id number] [place] [address] Dec, [facility] [id number] [place] [address] Dec, [facility] [id number] [place] [address] Dec, [facility] [id number] [place] [address] Dec, Other chronic pain G89.29 [facility] [id number] [place] [address] Dec, [facility] [id number] [place] [address] Nov, [facility] [address], [place] [address] Nov, Other chronic pain G89.29 [facility] [id number] [place] [address] Nov, Right hip pain M25.551 and Coronary artery disease I25.10 [facility] [id number] [place] [address] Nov, Other chronic pain G89.29 [facility] [address]100[place], [place] [address] Oct, [facility] [id number] [place] [address] Oct, [facility] [address]100[place], [place] [address] Sep, [facility] [id number] [place] [address] Sep, [facility] [id number] [place] [address] Aug, [facility] [id number] [place] [address] Aug, Hypertension I10 ; Coronary artery disease I25.10 and Arthritis M19.90 [facility] [id number] [place] [address] Jun, [facility] [id number] [place] [address] Jun, Essential hypertension, benign 401.1 ; Other chronic pain 338.29 and Chronic airway obstruction, not elsewhere classified 496 [facility] [address]005[address]100[place], [place] [address] Jun, [facility] [id number] [place] [address] Jun, [facility] [address]005[address]100[place], [place] [address] Jun, [facility] [id number], [place] [address] May, [facility] [id number], [place] [address] May, [facility] [id number] [place] [address] Apr, [facility] [id number], [place] [address] 16 Apr, 2015 [facility] [id number], [place] [address] Apr, [facility] [address] [id number] [place] [address] March, [facility] [address] [id number] [place] [address] March, [facility] [address] [id number] [place] [address] March, [facility] [address] [id number] [place] [address] March, [facility] [address] [id number] [place] [address] March, Sialadenitis 527.2 [facility] [address] [id number] [place] [address] Feb, [facility] [address] [id number] [place] [address] Feb, [facility] [address] [id number] [place] [address] Feb, [facility] [address] [id number] [place] [address] Feb, [facility] [address] [facility] [id number] [place] [address] Feb, [facility] [address] [id number] [address] Jan, [facility] [address] [id number] [address] Jan, [facility] [address] [id number] [place] [address] Jan, [facility] [address] [id number] [place] [address] Jan, [facility] [address] [facility] [id number] [place] [address] Jan, [facility] [address] [id number] [place] [address] Jan, [facility] [place] [facility] [address] [id number] [place] [address] Dec, 2014 [facility] [place] [facility] [address] [id number] [place] [address] Dec, 2014 [facility] [place] [facility] [address] [id number] [place] [address] Dec, 2014 [facility] [place] [facility] [address] [id number] [place] [address] Dec, 2014 [facility] [place] [facility] [address] [id number] [place] [address] Dec, 2014 [facility] [place] [facility] [address] [id number] [place] [address] Dec, 2014 [facility] [place] [facility] [address] [id number] [place] [address] Nov, [facility] [place] [facility] [address] [id number] [place] [address] Nov, [facility] [place] [facility] [address] [id number] [place] [address] Nov, [facility] [place] [facility] [address] [id number] [place] [address] Nov, [facility] [place] [facility] [address] [id number] [place] [address] Nov, [facility] [place] [facility] [address] [id number] [place] [address] Nov, [facility] [place] [facility] [address] [id number] [place] [address] Nov, [facility] [place] [facility] [address] [id number] [place] [address] Nov, [facility] [place] [facility] [address] [id number] [place] [address] Nov, [facility] [place] [facility] [address] [id number] [place] [address] Nov, [facility] [place] [facility] [address] [id number] [place] [address] Nov, [facility] [place] [facility] [address] [id number] [place] [address] Nov, [facility] [place] [facility] [address] [id number] [place] [address] Nov, [facility] [place] [facility] [address] [id number] [place] [address] Nov, [facility] [place] [facility] [address] [id number] [place] [address] Oct, [facility] [place] [facility] [address] [id number] [place] [address] Oct, [facility] [place] [facility] [address] [id number] [place] [address] Oct, [facility] [place] [facility] [address] [id number] [place] [address] 18 Oct, 2014 [facility] [place] [facility] [address] [id number] [place] [address] 18 Oct, 2014 [facility] [place] [facility] [address] [id number] [place] [address] 17 Oct, 2014 [facility] [place] [facility] [address] [id number] [place] [address] 17 Oct, 2014 [facility] [place] [facility] [address] [id number] [place] [address] 10 Oct, 2014 [facility] [place] [facility] [address] [id number] [place] [address] Oct, [facility] [place] [facility] [address] [id number] [place] [address] Sep, [facility] [place] [facility] [address] [id number] [place] [address] Sep, [facility] [place] [facility] [address] [id number] [place] [address] Sep, [facility] [place] [facility] [address] [id number] [place] [address] Sep, [facility] [place] [facility] [address] [id number] [place] [address] Sep, [facility] [place] [facility] [address] [id number] [place] [address] Sep, [facility] [place] [facility] [address] [id number] [place] [address] Sep, [facility] [place] [facility] [address] [id number] [place] [address] Sep, [facility] [place] [facility] [address] [id number] [place] [address] Sep, [facility] [place] [facility] [address] [id number] [place] [address] Sep, [facility] [place] [facility] [address] [id number] [place] [address] Sep, [facility] [place] [facility] [address] [facility] [id number] [place] [address] Sep, [facility] [place] [facility] [address] [id number] [place] [address] Aug, [facility] [place] [facility] [address] [id number] [address] Aug, [facility] [place] [facility] [address] [id number] [place] [address] Aug, [facility] [place] [facility] [address] [id number] [place] [address] Aug, [facility] [place] [facility] [address] [id number] [address] Aug, [facility] [place] [facility] [address] [id number] [place] [address] 28 Aug, 2014 [facility] [place] [facility] [address] [id number] [place] [address] Aug, [facility] [place] [facility] [address] [id number] [place] [address] 17 Aug, 2013 [facility] [place] [facility] [address] [id number] [place] [address] 30 Jul, 2013 [facility] [place] [facility] [address] [id number] [place] [address] 30 Jul, 2013 [facility] [place] [facility] [address] [id number] [place] [address] 30 Jul, 2013 [facility] [place] [facility] [address] [id number] [place] [address] 30 Jul, 2013 [facility] [place] [facility] [address] [id number] [place] [address] 25 Jul, 2013 [facility] [place] [facility] [address] [id number] [place] [address] 25 Jul, 2013 [facility] [place] [facility] [address] [id number] [place] [address] 15 Jul, 2014 [facility] [place] [facility] [address] [id number] [place] [address] 15 Jul, 2014 [facility] [place] [facility] [address] [id number] [place] [address] 11 Jul, 2014 [facility] [place] [facility] [address] [id number] [place] [address] Jul, [facility] [place] [facility] [address] [id number] [place] [address] Jun, [facility] [place] [facility] [address] [id number] [place] [address] Jun, [facility] [place] [facility] [address] [id number] [place] [address] Jun, [facility] [place] [facility] [address] [id number] [place] [address] Jun, [facility] [place] [facility] [address] [id number] [place] [address] Jun, [facility] [place] [facility] [address] [id number] [place] [address] Jun, [facility] [place] [facility] [address] [id number] [place] [address] Jun, [facility] [place] [facility] [address] [id number] [place] [address] Jun, [facility] [place] [facility] [address] [id number] [place] [address] Jun, [facility] [place] [facility] [address] [id number] [place] [address] Jun, [facility] [place] [facility] [address] [id number] [place] [address] Jun, [facility] [place] [facility] [address] [id number] [place] [address] Jun, [facility] [place] [facility] [address] [id number] [place] [address] Jun, [facility] [place] [facility] [address] [id number] [place] [address] Jun, [facility] [place] [facility] [address] [id number] [place] [address] Jun, [facility] [place] [facility] [address] [id number] [place] [address] Jun, [facility] [place] [facility] [address] [id number] [place] [address] Jun, [facility] [place] [facility] [address] [id number] [place] [address] Jun, [facility] [place] [facility] [address] [id number] [place] [address] Jun, [facility] [place] [facility] [address] [id number] [place] [address] Jun, [facility] [place] [facility] [address] [id number] [place] [address] Jun, [facility] [place] [facility] [address] [id number] [place] [address] Jun, [facility] [place] [facility] [address] [id number] [place] [address] May, [facility] [place] [facility] [address] [id number] [place] [address] May, [facility] [place] [facility] [address] [id number] [place] [address] May, [facility] [place] [facility] [address] [id number] [place] [address] May, [facility] [place] [facility] [address] [id number] [place] [address] May, [facility] [place] [facility] [address] [id number] [place] [address] May, [facility] [place] [facility] [address] [id number] [place] [address] May, [facility] [place] [facility] [address] [id number] [place] [address] May, [facility] [place] [facility] [address] [id number] [place] [address] May, [facility] [place] [facility] [address] [id number] [place] [address] May, [facility] [place] [facility] [address] [id number] [place] [address] May, [facility] [place] [facility] [address] [id number] [place] [address] May, [facility] [place] [facility] [address] [id number] [place] [address] May, [facility] [place] [facility] [address] [id number] [place] [address] Apr, [facility] [place] [facility] [address] [id number] [place] [address] Apr, [facility] [place] [facility] [address] [id number] [place] [address] Apr, [facility] [place] [facility] [address] [id number] [place] [address] Apr, [facility] [place] [facility] [address] [id number] [place] [address] Apr, [facility] [place] [facility] [address] [id number] [place] [address] Apr, [facility] [place] [facility] [address] [id number] [place] [address] Apr, [facility] [place] [facility] [address] [id number] [place] [address] Apr, [facility] [place] [facility] [address] [id number] [place] [address] Apr, [facility] [place] [facility] [address] [id number] [place] [address] March, [facility] [place] [facility] [address] [id number] [place] [address] March, [facility] [place] [facility] [address] [id number] [place] [address] March, [facility] [place] [facility] [address] [id number] [place] [address] March, [facility] [place] [facility] [address] [id number] [place] [address] March, [facility] [place] [facility] [address] [id number] [place] [address] March, [facility] [address] [id number] [place] [address] March, [facility] [place] [facility] [address] [id number] [place] [address] March, [facility] [place] [facility] [address] [id number] [place] [address] March, [facility] [place] [facility] [address] [id number] [place] [address] March, [facility] [place] [facility] [address] [id number] [place] [address] March, [facility] [place] [facility] [address] [id number] [place] [address] March, [facility] [address] [id number] [place] [address] March, [facility] [place] [facility] [address] [id number] [place] [address] March, [facility] [place] [facility] [address] [id number] [place] [address] March, [facility] [place] [facility] [address] [id number] [place] [address] March, [facility] [place] [facility] [address] [id number] [place] [address] March, [facility] [place] [facility] [address] [id number] [place] [address] March, [facility] [place] [facility] [address] [id number] [place] [address] March, [facility] [place] [facility] [address] [id number] [place] [address] March, [facility] [place] [facility] [address] [id number] [place] [address] Feb, [facility] [place] [facility] [address] [id number] [place] [address] 29 Feb, 2014 [facility] [place] [facility] [address] [id number] [place] [address] Feb, [facility] [place] [facility] [address] [id number] [place] [address] Feb, [facility] [place] [facility] [address] [id number] [place] [address] Feb, [facility] [place] [facility] [address] [id number] [place] [address] Feb, [facility] [place] [facility] [address] [id number] [place] [address] Feb, [facility] [place] [facility] [address] [id number] [place] [address] Feb, [facility] [place] [facility] [address] [id number] [place] [address] Jan, [facility] [place] [facility] [address] [id number] [place] [address] Jan, [facility] [place] [facility] [address] [id number] [place] [address] Jan, [facility] [place] [facility] [address] [id number] [place] [address] 24 Jan, 2014 [facility] [place] [facility] [address] [id number] [place] [address] Jan, [facility] [place] [facility] [address] [id number] [place] [address] Jan, [facility] [place] [facility] [address] [id number] [place] [address] Jan, [facility] [place] [facility] [address] [id number] [place] [address] Jan, [facility] [place] [facility] [address] [id number] [place] [address] Jan, [facility] [place] [facility] [address] [id number] [place] [address] Jan, [facility] [place] [facility] [address] [id number] [place] [address] Dec, [facility] [place] [facility] [address] [id number] [place] [address] Dec, [facility] [place] [facility] [address] [id number] [place] [address] Dec, [facility] [place] [facility] [address] [id number] [place] [address] Dec, [facility] [place] [facility] [address] [id number] [place] [address] Dec, [facility] [place] [facility] [address] [id number] [place] [address] Dec, [facility] [place] [facility] [address] [id number] [place] [address] Dec, [facility] [place] [facility] [address] [id number] [place] [address] Dec, [facility] [place] [facility] [address] [id number] [place] [address] Nov, [facility] [place] [facility] [address] [id number] [place] [address] Nov, [facility] [place] [facility] [address] [id number] [place] [address] Nov, [facility] [place] [facility] [address] [id number] [place] [address] Nov, [facility] [place] [facility] [address] [id number] [place] [address] Nov, [facility] [place] [facility] [address] [id number] [place] [address] Nov, [facility] [place] [facility] [address] [id number] [place] [address] Nov, [facility] [address] [id number] [place] [address] Nov, [facility] [place] [facility] [address] [id number] [place] [address] Nov, [facility] [address] [id number] [place] [address] Nov, [facility] [address] [id number] [place] [address] Nov, [facility] [address] [id number] [place] [address] Nov, [facility] [address] [id number] [place] [address] Nov, [facility] [address] [id number] [place] [address] Oct, [facility] [address] [id number] [place] [address] 30 Oct, 2013 [facility] [address] [id number] [place] [address] Oct, [facility] [address] [id number] [place] [address] Oct, [facility] [place] [facility] [address] [id number] [place] [address] Oct, [facility] [address] [id number] [place] [address] Oct, [facility] [place] [facility] [address] [id number] [place] [address] Oct, [facility] [place] [facility] [address] [id number] [place] [address] Oct, [facility] [place] [facility] [address] [id number] [place] [address] Oct, [facility] [address] [id number] [place] [address] Oct, [facility] [place] [facility] [address] [id number] [place] [address] Oct, [facility] [place] [facility] [address] [id number] [place] [address] Oct, [facility] [place] [facility] [address] [id number] [place] [address] Oct, [facility] [place] [facility] [address] [id number] [place] [address] Oct, [facility] [place] [facility] [address] [id number] [place] [address] Sep, [facility] [place] [facility] [address] [id number] [place] [address] Sep, [facility] [place] [facility] [address] [id number] [address] Sep, [facility] [place] [facility] [address] [id number] [place] [address] Sep, [facility] [place] [facility] [address] [id number], [place] [address] Sep, [facility] [place] [facility] [address] [id number], [place] [address] Sep, [facility] [place] [facility] [address] [id number] [address] Sep, [facility] [place] [facility] [address] [id number], [place] [address] Sep, [facility] [place] [facility] [address] [id number] [address] Sep, [facility] [place] [facility] [address] [id number] [address] Sep, [facility] [place] [facility] [address] [id number] [place] [address] 24 Aug, 2012 [facility] [place] [facility] [address] [id number] [place] [address] 24 Aug, 2012 [facility] [place] [facility] [address] [id number] [place] [address] 24 Aug, 2012 [facility] [place] [facility] [address] [id number] [place] [address] 24 Aug, 2012 [facility] [place] [facility] [address] [id number] [place] [address] 23 Aug, 2012 [facility] [place] [facility] [address] [id number] [place] [address] 23 Aug, 2012 [facility] [place] [facility] [address] [id number] [place] [address] 23 Aug, 2012 [facility] [place] [facility] [address] [id number] [place] [address] 23 Aug, 2012 [facility] [place] [facility] [address] [id number] [place] [address] 22 Aug, 2012 [facility] [place] [facility] [address] [id number] [place] [address] 22 Aug, 2012 [facility] [place] [facility] [address] [id number] [place] [address] 18 Aug, 2012 [facility] [place] [facility] [address] [id number] [place] [address] 18 Aug, 2012 [facility] [place] [facility] [address] [id number] [address] 18 Aug, 2012 [facility] [place] [facility] [address] [id number] [place] [address] 18 Aug, 2012 [facility] [place] [facility] [address] [id number] [place] [address] 17 Aug, 2012 [facility] [place] [facility] [address] [id number] [address] 14 Aug2012 [facility] [place] [facility] [address] [id number] [place] [address] 14 Aug, 2013 [facility] [place] [facility] [address] [id number] [place] [address] Aug, [facility] [place] [facility] [address] [id number] [place] [address] 20 Jul, 2013 [facility] [place] [facility] [address] [id number] [place] [address] 19 Jul, 2013 [facility] [place] [facility] [address] [id number] [place] [address] 18 Jul, 2013 [facility] [place] [facility] [address] [id number] [place] [address] 11 Jul, 2013 [facility] [place] [facility] [address] [id number] [place] [address] Jul, [facility] [place] [facility] [address] [id number] [place] [address] Jun, [facility] [place] [facility] [address] [id number] [place] [address] Jun, [facility] [place] [facility] [address] [id number] [place] [address] Jun, [facility] [place] [facility] [address] [id number] [place] [address] 15 Jun, 2013 [facility] [place] [facility] [address] [id number] [place] [address] 14 Jun, 2013 [facility] [place] [facility] [address] [id number] [place] [address] Jun, [facility] [place] [facility] [address] [id number] [place] [address] Jun, [facility] [place] [facility] [address] [id number] [place] [address] 08 Jun, 2013 [facility] [place] [facility] [address] [id number] [place] [address] Jun, [facility] [place] [facility] [address] [id number] [place] [address] Jun, [facility] [place] [facility] [address] [id number] [place] [address] May, [facility] [place] [facility] [address] [id number] [place] [address] May, [facility] [place] [facility] [address] [id number] [place] [address] May, [facility] [place] [facility] [address] [id number] [place] [address] May, [facility] [place] [facility] [address] [id number] [place] [address] May, [facility] [place] [facility] [address] [id number] [place] [address] May, [facility] [place] [facility] [address] [id number] [place] [address] May, [facility] [place] [facility] [address] [id number] [place] [address] May, [facility] [place] [facility] [address] [id number] [place] [address] May, [facility] [place] [facility] [address] [id number] [place] [address] Apr, [facility] [place] [facility] [address] [id number] [place] [address] Apr, [facility] [place] [facility] [address] [id number] [place] [address] Apr, [facility] [place] [facility] [address] [id number] [place] [address] Apr, [facility] [place] [facility] [address] [id number] [place] [address] Apr, [facility] [place] [facility] [address] [id number] [place] [address] Apr, [facility] [address] [id number] [place] [address] Apr, [facility] [address] [id number] [place] [address] March, [facility] [address] [id number] [place] [address] Feb, [facility] [address] [id number] [place] [address] Feb, [facility] [address] [id number] [place] [address] Feb, [facility] [address] [id number] [place] [address] Jan, [facility] [address] [id number] [place] [address] Jan, [facility] [address] [id number] [place] [address] Jan, [facility] [address] [id number] [place] [address] Jan, [facility] [address] [id number] [place] [address] Jan, [facility] [address] [id number] [place] [address] Jan, [facility] [address] [id number] [place] [address] Jan, [facility] [address] [id number] [place] [address] Jan, [facility] [address] [id number] [place] [address] Dec, [facility] [address] [id number] [place] [address] Dec, [facility] [address] [id number] [place] [address] 13 Dec, 2012 [facility] [place] [facility] [address] [id number] [place] [address] Dec, [facility] [place] [facility] [address] [id number] [place] [address] 07 Dec, 2012 [facility] [place] [facility] [address] [id number] [place] [address] 06 Dec, 2012 [facility] [place] [facility] [address] [id number] [place] [address] Dec, [facility] [place] [facility] [address] [id number] [place] [address] Nov, [facility] [place] [facility] [address] [id number] [place] [address] Nov, [facility] [place] [facility] [address] [id number] [place] [address] Nov, [facility] [place] [facility] [address] [id number] [place] [address] Nov, [facility] [place] [facility] [address] [id number] [place] [address] Nov, [facility] [place] [facility] [address] [id number] [place] [address] Nov, [facility] [place] [facility] [address] [id number] [place] [address] Nov, [facility] [place] [facility] [address] [id number] [place] [address] Oct, [facility] [place] [facility] [address] [address] [id number] [place] [address] Oct, [facility] [place] [facility] [address] [id number] [place] [address] Oct, [facility] [place] [facility] [address] [id number] [place] [address] Oct, [facility] [place] [facility] [address] [id number] [place] [address] Oct, [facility] [place] [facility] [address] [id number] [place] [address] Oct, [facility] [place] [facility] [address] [id number] [place] [address] Oct, [facility] [place] [facility] [address] [id number] [place] [address] Oct, [facility] [place] [facility] [address] [id number] [place] [address] Oct, [facility] [place] [facility] [address] [id number] [place] [address] Oct, [facility] [place] [facility] [address] [id number] [place] [address] Oct, [facility] [place] [facility] [address] [id number] [place] [address] Oct, [facility] [place] [facility] [address] [id number] [place] [address] Sep, [facility] [place] [facility] [address] [facility] [id number] [place] [address] Sep, [facility] [place] [facility] [address] [id number] [place] [address] Sep, [facility] [place] [facility] [address] [id number] [place] [address] Sep, [facility] [place] [facility] [address] [id number] [place] [address] Sep, [facility] [place] [facility] [address] [id number] [place] [address] Sep, [facility] [place] [facility] [address] [id number] [place] [address] Sep, [facility] [place] [facility] [address] [id number] [place] [address] Sep, [facility] [place] [facility] [address] [id number] [place] [address] Sep, [facility] [place] [facility] [address] [id number] [place] [address] Sep, [facility] [place] [facility] [address] [id number] [place] [address] Sep, [facility] [place] [facility] [address] [id number] [place] [address] Aug, [facility] [place] [facility] [address] [id number] [place] [address] Aug, [facility] [place] [facility] [address] [id number] [place] [address] Aug, [facility] [place] [facility] [address] [id number] [place] [address] Aug, [facility] [place] [facility] [address] [id number] [place] [address] Aug, [facility] [place] [facility] [address] [id number] [place] [address] Aug, [facility] [place] [facility] [address] [facility] [id number] [place] [address] Aug, [facility] [place] [facility] [address] [id number] [address] Aug, [facility] [place] [facility] [address] [id number] [place] [address] Aug, [facility] [place] [facility] [address] [id number] [place] [address] Aug, [facility] [place] [facility] [address] [id number] [address] Jul, [facility] [place] [facility] [address] [id number] [address] Jul, [facility] [place] [facility] [address] [id number] [place] [address] Jul, [facility] [place] [facility] [address] [id number] [place] [address] Jul, [facility] [place] [facility] [address] [id number] [place] [address] Jun, [facility] [place] [facility] [address] [id number] [place] [address] Jun, [facility] [place] [facility] [address] [id number] [place] [address] Jun, [facility] [place] [facility] [address] [id number] [place] [address] Jun, [facility] [place] [facility] [address] [id number] [place] [address] Jun, [facility] [place] [facility] [address] [id number] [place] [address] Jun, [facility] [place] [facility] [address] [id number] [place] [address] Jun, [facility] [place] [facility] [address] [id number] [place] [address] May, [facility] [place] [facility] [address] [id number] [place] [address] May, [facility] [place] [facility] [address] [id number] [place] [address] May, [facility] [place] [facility] [address] [id number] [place] [address] May, [facility] [place] [facility] [address] [id number] [place] [address] May, [facility] [place] [facility] [address] [id number] [place] [address] Apr, [facility] [place] [facility] [address] [id number] [place] [address] 18 Apr, 2012 [facility] [address] [id number] [place] [address] Apr, [facility] [address] [id number] [place] [address] Apr, [facility] [address] [id number] [place] [address] Apr, [facility] [address] [id number] [place] [address] March, [facility] [address] [id number] [place] [address] March, [facility] [address] [id number] [place] [address] March, [facility] [address] [id number] [place] [address] March, [facility] [address] [id number] [place] [address] March, [facility] [address] [id number] [place] [address] March, [facility] [address] [id number] [place] [address] March, [facility] [address] [id number] [place] [address] March, [facility] [address] [id number] [place] [address] March, [facility] [place] [facility] [address] [id number] [place] [address] March, [facility] [address] [id number] [place] [address] Feb, [facility] [address] [id number] [place] [address] Feb, [facility] [address] [id number] [place] [address] Feb, [facility] [place] [facility] [address] [id number] [place] [address] Feb, [facility] [place] [facility] [address] [id number] [place] [address] Feb, [facility] [place] [facility] [address] [id number] [place] [address] Feb, [facility] [place] [facility] [address] [id number] [place] [address] Feb, [facility] [place] [facility] [address] [id number] [place] [address] Feb, [facility] [place] [facility] [address] [id number] [place] [address] Feb, [facility] [place] [facility] [address] [id number] [place] [address] Jan, [facility] [place] [facility] [address] [id number] [place] [address] Jan, [facility] [place] [facility] [address] [id number] [place] [address] Jan, [facility] [place] [facility] [address] [id number] [place] [address] Jan, [facility] [place] [facility] [address] [id number] [place] [address] Dec, [facility] [place] [facility] [address] [id number] [place] [address] Dec, [facility] [place] [facility] [address] [id number] [place] [address] Nov, [facility] [place] [facility] [address] [id number] [place] [address] Nov, [facility] [place] [facility] [address] [id number] [address] Nov, [facility] [id number] [address] Nov, [facility] [id number] [address] Nov, [facility] [id number] [address] Oct, [facility] [id number] [address] Oct, [facility] [id number] [place] [address] Oct, [facility] [id number] [address] Oct, [facility] [id number], [place] [address] Oct, [facility] [id number], [place] [address] Oct, [facility] [id number], [place] [address] Oct, [facility] [address] [id number] [address] Oct, 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
--- OUTSIDE RECORDS SUMMARY | 2019-04-16 15:21 | XMS REPORT ---
Author Author Migration, Doctor Organization [facility] Address Unknown Phone Unavailable Care Team Providers Care Assistant Chief Engineer Name Role Phone Migration, Doctor Unavailable Unavailable PROBLEMS Type Condition ICD9-CM Code OOL07-BE Code Onset Dates Condition Status SNOMED Code Problem Coronary artery disease I25.10 Active 32468113 Problem Hypertension I10 Active 75301994 Problem Other chronic pain G89.29 Active 92173231 Problem Hyperlipidemia E78.5 Active 93658052 Problem Type 2 diabetes mellitus without complication, without long-term current use of insulin E11.9 Active 961046874 Problem Low back pain M54.5 Active 368929377 Problem Pharyngeal dysphagia R13.13 Active 50781001178220 Problem Anxiety F41.9 Active 84497722 Problem Peripheral vascular disease I73.9 Active 108246464 Problem Suprapubic catheter Z93.59 Active 831972360 Problem Reactive depression F32.9 Active 49196306 Problem Neurogenic bladder N31.9 Active 205727603 Problem Ventral hernia without obstruction or gangrene K43.9 Active 281676849 Problem Insomnia G47.00 Active 376677977 Problem Paroxysmal atrial fibrillation I48.0 Active 178626053 Problem 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 Active 03601235 Problem Encounter for suprapubic catheter care Z43.5 Active 676705810 ALLERGIES No Information ENCOUNTERS Encounter Location Date Diagnosis Via [facility] [address] [place] [id number] Jun, Via [facility] [address] [facility] [address] [place] [id number] March, [facility] [address] [id number] [address] Feb, Other chronic pain G89.29 [facility] [address] [id number] [address] Feb, Anxiety F41.9 [facility] [address] [id number] [address] Feb, Other chronic pain G89.29 Via [facility] [employer] [facility] [facility] [address] [place] [id number] Feb, Neurogenic bladder N31.9 and Suprapubic catheter Z93.59 [facility] [address] [id number], [place] [address] Jan, Anxiety F41.9 [facility] [id number] [place] [address] Dec, Anxiety F41.9 [facility] [address] [id number] [place] [address] Dec, Other chronic pain G89.29 and Anxiety F41.9 [facility] [address] [facility] [id number] [place] [address] Dec, Via [employer] [facility] [address] [place] [id number] Dec, Neurogenic bladder N31.9 and Suprapubic catheter Z93.59 [facility] [address] [facility] [id number] [place] [address] Nov, Other chronic pain G89.29 and Anxiety F41.9 [facility] [address] [facility] [id number] [place] [address] Nov, [facility] [employer] [facility] [address] [place] [id number] Nov, Suprapubic catheter Z93.59 [facility] [address] [facility] [id number] [place] [address] Oct, Other chronic pain G89.29 and Anxiety F41.9 [facility] [address] [facility] [id number] [place] [address] Oct, [facility] [address] [facility] [id number] [place] [address] Oct, Suprapubic catheter Z93.59 [facility] [address] [facility] [id number] [place] [address] Oct, [facility] [employer] [facility] [address] [place] [id number] Oct, [facility] [address] [id number], [place] [address] Oct, Anxiety F41.9 [facility] [address] [id number] [place] [address] Oct, Anxiety F41.9 Via [employer] [address] [place] [id number] Oct, Other chronic pain G89.29 [facility] [address] [id number] [place] [address] Sep, Other chronic pain G89.29 Via [employer] [address] [place] [address] Sep, Suprapubic catheter Z93.59 and Cervicalgia M54.2 [facility] [address] [id number], [place] [address] Sep, [facility] [address] [id number][place] [address] Sep, [facility] [address] [facility] [id number][place] [address] Sep, Via [employer] [address] [place] [id number] Aug, Cystitis N30.90 [facility] [address] [id number], [place] [address] Aug, [facility] [address] [id number], [place] [address] Aug, Other chronic pain G89.29 [facility] [address] [id number], [place] [address] Aug, Via [employer] [facility] [address] [place] [id number] Aug, Encounter for suprapubic catheter care Z43.5 [facility] [address] [address] 20 Jul, 2018 Via [employer] [address] [place] [id number] Jul, [facility] [address], [place] [address] Jul, Other chronic pain G89.29 [facility] [address] [address] Jul, [facility] [address] [address] Jul, Via [employer] [address] [place] [id number] Jun, 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 [id number] [place] [address] Jun, Other chronic pain G89.29 [id number] [place] [address] Jun, Via [employer] [address] [place] [id number] May, Anxiety F41.9 ; Type 2 diabetes mellitus without complication, without long-term current use of insulin E11.9 ; Hypertension I10 ; Low back pain M54.5 ; Paroxysmal atrial fibrillation I48.0 and 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 [address] [address] May, Other chronic pain G89.29 Via [employer] [address] [place] [id number] May, Low back pain M54.5 [address] [address] May, [address] [address] Apr, Other chronic pain G89.29 [address] [address] Apr, [facility] [address] [id number] [address] Apr, Via [facility] [employer] [address] [place] [id number] 19 Apr, 2018 Closed compression fracture of L3 lumbar vertebra with routine healing, subsequent encounter S32.030D [facility] [address] [place] [id number] 14 Apr, 2018 Low back pain M54.5 Via [employer] [address] [place] [id number] 12 Apr, 2018 Coccydynia M53.3 [facility] [address] [id number] [place] [address] March, [facility] [address] [id number] [place] [address] March, Other chronic pain G89.29 [facility] [address] [id number] [place] [address] March, [facility] [address] [id number] [address] March, [facility] [address] [id number] [place] [address] Feb, [facility] [address] [facility] [id number] [address] Feb, Other chronic pain G89.29 Via [employer] [address] [place] [id number] Feb, Other chronic pain G89.29 and Anxiety F41.9 [facility] [address] [id number], [place] [address] Feb, [facility] [address] [facility] [id number] [place] [address] Jan, [facility] [address] [facility] [id number][place] [address] Jan, [facility] [address] [facility] [id number] [address] Jan, [facility] [address] [facility] [id number][place] [address] Jan, [facility] [address] [id number] [address] Dec, Via [employer] [facility] [address] [place] [id number] Dec, Peripheral vascular disease I73.9 ; 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 ; Other chronic pain G89.29 ; Anxiety F41.9 ; Reactive depression F32.9 ; Insomnia G47.00 and Type 2 diabetes mellitus without complication, without long-term current use of insulin E11.9 [address] [id number] [place] [address] Nov, [facility] [place] [address] [id number][place] [id number] Nov, Anxiety F41.9 [facility] [address] [facility] [id number][place] [address] Nov, [facility] [place] [address] [id number] [address] Nov, Anxiety F41.9 Via [employer] [address] [facility] [place] [id number] Nov, Status post surgery Z98.890 ; Confused R41.0 ; Anxiety F41.9 and Other chronic pain G89.29 [facility] [place] [address] [id number][place] [address] Nov, Other chronic pain G89.29 [facility] [address] [facility] [id number][place] [address] Oct, [facility] [place] [id number] [place] [id number] Oct, Other chronic pain G89.29 [facility] [address] [facility] [id number][place] [address] Oct, Anxiety F41.9 [facility] [place] [id number][place] [address] Sep, Other chronic pain G89.29 [facility] [place] [id number] [place] [id number] Sep, Via [employer] [address] [place] [id number] Aug, Dysuria R30.0 and Anxiety F41.9 [facility] [id number] [place] [address] Aug, [facility] [place] [id number] [place] [id number] Aug, Other chronic pain G89.29 [facility] [id number] [place] [address] Jul, Other chronic pain G89.29 [facility] [place] [id number] [place] [id number] Jun, [facility] [place] [id number] [place] [id number] Jun, Other chronic pain G89.29 [facility] [id number] [place] [address] Jun, [facility] [address] [address] May, Other chronic pain G89.29 [facility] [id number] [place] [address] Apr, Other chronic pain G89.29 Via [employer] [address] [place] [id number] Apr, Reactive depression F32.9 and Pharyngeal dysphagia R13.13 [facility] [address] [id number], [place] [address] Apr, Urinary tract infection without hematuria, site unspecified N39.0 [facility] [id number] [place] [address] March, Other chronic pain G89.29 [facility] [address] [address] Feb, Other chronic pain G89.29 [facility] [address] [address] Feb, [facility] [place] [id number] [place] [id number] Feb, Via [employer] [address] [place] [id number] Feb, Dysuria R30.0 and Ventral hernia without obstruction or gangrene K43.9 [facility] [id number] [place] [address] Jan, Other chronic pain G89.29 [facility] [place] [id number] [place] [id number] Dec, Other chronic pain G89.29 [facility] [id number] [place] [address] Nov, Other chronic pain G89.29 Via [employer] [address] [place] [id number] Nov, Lymphadenitis I88.9 [facility] [id number] [place] [address] Nov, Other chronic pain G89.29 [facility] [address] [address] Nov, [facility] [place] [id number] [place] [id number] Nov, Other chronic pain G89.29 Via [employer] [address] [place] [id number] Oct, Low back pain M54.5 ; Hypertension I10 and Type 2 diabetes mellitus without complication, without long-term current use of insulin E11.9 [facility] [id number] [place] [address] Oct, [facility] [address] [facility] [id number] [address] Oct, [facility] [address] [facility] [id number][place] [address] Oct, [facility] [address] [facility] [id number][place] [address] Oct, [facility] [address] [facility] [id number], [place] [address] Sep, [facility] [address] [facility] [id number], [place] [address] Sep, [facility] [address] [facility] [id number][place] [address] Aug, Other chronic pain G89.29 [facility] [address] [facility] [id number][place] [address] Jul, [facility] [address], [place] [address] Jul, [facility] [address], [place] [address] Jul, [facility] [address], [place] [address] Jun, [facility] [address] [id number], [place] [address] Jun, Via [facility] [address] [place] [id number] Jun, Low back pain M54.5 ; Other chronic pain G89.29 and Coronary artery disease I25.10 [facility] [address] [facility] [id number], [place] [address] Jun, [facility] [address] [facility] [id number][place] [address] May, [facility] [address] [id number] [address] May, [facility] [address], [place] [address] May, Other chronic pain G89.29 [facility] [address], [place] [address] May, [facility] [address], [place] [address] 28 Apr, 2016 [facility] [id number] [place] [address] 17 Apr, 2016 Acute cystitis without hematuria N30.00 [facility] [id number] [place] [address] 16 Apr, 2016 Acute cystitis without hematuria N30.00 ; Coronary artery disease I25.10 ; Low back pain M54.5 and Other chronic pain G89.29 [facility] [address] [address] Apr, Other chronic pain G89.29 [facility] [address], [place] [address] March, Other chronic pain G89.29 [facility] [address]100[place], [place] [address] 18 Feb, 2016 [facility] [address], [place] [address] 15 Feb, 2016 Arthritis M19.90 [facility] [address], [place] [address] Feb, [facility] [address], [place] [address] 30 Jan, 2016 [facility] [address]100[place], [place] [address] Jan, [facility] [address], [place] [address] Jan, Other chronic pain G89.29 [facility] [address], [place] [address] Jan, Hypertension I10 ; Coronary artery disease I25.10 and Insomnia G47.00 [facility] [address] [address] Jan, [facility] [id number] [place] [address] Dec, Right hip pain M25.551 [facility] [id number] [place] [address] Dec, [facility] [id number] [place] [address] Dec, [facility] [id number] [place] [address] Dec, [facility] [id number] [place] [address] Dec, Other chronic pain G89.29 [facility] [id number] [place] [address] Dec, [facility] [id number] [place] [address] Nov, [facility] [address] [address] Nov, Other chronic pain G89.29 [facility] [id number] [place] [address] Nov, Right hip pain M25.551 and Coronary artery disease I25.10 [facility] [id number] [place] [address] Nov, Other chronic pain G89.29 [facility] [address] [address] Oct, [facility] [id number] [place] [address] Oct, [facility] [address] [address] Sep, [facility] [id number] [place] [address] Sep, [facility] [id number] [place] [address] Aug, [facility] [id number] [place] [address] Aug, Hypertension I10 ; Coronary artery disease I25.10 and Arthritis M19.90 [facility] [id number] [place] [address] Jun, [facility] [id number] [place] [address] Jun, Essential hypertension, benign 401.1 ; Other chronic pain 338.29 and Chronic airway obstruction, not elsewhere classified 496 [facility] [address] [address] Jun, [facility] [id number] [place] [address] Jun, [facility] [address] [address] Jun, [facility] [address], [place] [address] May, [facility] [address] [address] May, [facility] [id number] [place] [address] Apr, [facility] [address] [address] 16 Apr, 2015 [facility] [id number] [address] Apr, [facility] [address] [id number] [place] [address] March, [facility] [address] [id number] [place] [address] March, [facility] [address] [id number] [place] [address] March, [facility] [address] [id number] [place] [address] March, [facility] [address] [id number] [place] [address] March, Sialadenitis 527.2 [facility] [address] [id number] [place] [address] Feb, [facility] [address] [id number] [place] [address] Feb, [facility] [address] [id number] [place] [address] Feb, [facility] [address] [id number] [place] [address] Feb, [facility] [address] [facility] [id number] [place] [address] Feb, [facility] [address] [id number] [address] Jan, [facility] [address] [id number] [address] Jan, [facility] [address] [id number] [place] [address] Jan, [facility] [address] [id number] [place] [address] Jan, [facility] [address] [facility] [id number] [place] [address] Jan, [facility] [address] [id number] [place] [address] Jan, [facility] [place] [facility] [address] [id number] [place] [address] Dec, 2014 [facility] [place] [facility] [address] [id number] [place] [address] Dec, 2014 [facility] [place] [facility] [address] [id number] [place] [address] Dec, 2014 [facility] [place] [facility] [address] [id number] [place] [address] Dec, 2014 [facility] [place] [facility] [address] [id number] [place] [address] Dec, 2014 [facility] [place] [facility] [address] [id number] [place] [address] Dec, 2014 [facility] [place] [facility] [address] [id number] [place] [address] Nov, [facility] [place] [facility] [address] [id number] [place] [address] Nov, [facility] [place] [facility] [address] [id number] [place] [address] Nov, [facility] [place] [facility] [address] [id number] [place] [address] Nov, [facility] [place] [facility] [address] [id number] [place] [address] Nov, [facility] [place] [facility] [address] [id number] [place] [address] Nov, [facility] [place] [facility] [address] [id number] [place] [address] Nov, [facility] [place] [facility] [address] [id number] [place] [address] Nov, [facility] [place] [facility] [address] [id number] [place] [address] Nov, [facility] [place] [facility] [address] [id number] [place] [address] Nov, [facility] [place] [facility] [address] [id number] [place] [address] Nov, [facility] [place] [facility] [address] [id number] [place] [address] Nov, [facility] [place] [facility] [address] [id number] [place] [address] Nov, [facility] [place] [facility] [address] [id number] [place] [address] Nov, [facility] [place] [facility] [address] [id number] [place] [address] Oct, [facility] [place] [facility] [address] [id number] [place] [address] Oct, [facility] [place] [facility] [address] [id number] [place] [address] Oct, [facility] [place] [facility] [address] [id number] [place] [address] 18 Oct, 2014 [facility] [place] [facility] [address] [id number] [place] [address] 18 Oct, 2014 [facility] [place] [facility] [address] [id number] [place] [address] 17 Oct, 2014 [facility] [place] [facility] [address] [id number] [place] [address] 17 Oct, 2014 [facility] [place] [facility] [address] [id number] [place] [address] 10 Oct, 2014 [facility] [place] [facility] [address] [id number] [place] [address] Oct, [facility] [place] [facility] [address] [id number] [place] [address] Sep, [facility] [place] [facility] [address] [id number] [place] [address] Sep, [facility] [place] [facility] [address] [id number] [place] [address] Sep, [facility] [place] [facility] [address] [id number] [place] [address] Sep, [facility] [place] [facility] [address] [id number] [place] [address] Sep, [facility] [place] [facility] [address] [id number] [place] [address] Sep, [facility] [place] [facility] [address] [id number] [place] [address] Sep, [facility] [place] [facility] [address] [id number] [place] [address] Sep, [facility] [place] [facility] [address] [id number] [place] [address] Sep, [facility] [place] [facility] [address] [id number] [place] [address] Sep, [facility] [place] [facility] [address] [id number] [place] [address] Sep, [facility] [place] [facility] [address] [facility] [id number] [place] [address] Sep, [facility] [place] [facility] [address] [id number] [place] [address] Aug, [facility] [place] [facility] [address] [id number] [address] Aug, [facility] [place] [facility] [address] [id number] [place] [address] Aug, [facility] [place] [facility] [address] [id number] [place] [address] Aug, [facility] [place] [facility] [address] [id number], [place] [address] Aug, [facility] [place] [facility] [address] [id number] [place] [address] 28 Aug, 2014 [facility] [place] [facility] [address] [id number] [place] [address] Aug, [facility] [place] [facility] [address] [id number] [place] [address] 17 Aug, 2013 [facility] [place] [facility] [address] [id number] [place] [address] 30 Jul, 2013 [facility] [place] [facility] [address] [id number] [place] [address] 30 Jul, 2013 [facility] [place] [facility] [address] [id number] [place] [address] 30 Jul, 2013 [facility] [place] [facility] [address] [id number] [place] [address] 30 Jul, 2013 [facility] [place] [facility] [address] [id number] [place] [address] 25 Jul, 2013 [facility] [place] [facility] [address] [id number] [place] [address] 25 Jul, 2013 [facility] [place] [facility] [address] [id number] [place] [address] 15 Jul, 2014 [facility] [place] [facility] [address] [id number] [place] [address] 15 Jul, 2014 [facility] [place] [facility] [address] [id number] [place] [address] 11 Jul, 2014 [facility] [place] [facility] [address] [id number] [place] [address] Jul, [facility] [place] [facility] [address] [id number] [place] [address] Jun, [facility] [place] [facility] [address] [id number] [place] [address] Jun, [facility] [place] [facility] [address] [id number] [place] [address] Jun, [facility] [place] [facility] [address] [id number] [place] [address] Jun, [facility] [place] [facility] [address] [id number] [place] [address] Jun, [facility] [place] [facility] [address] [id number] [place] [address] Jun, [facility] [place] [facility] [address] [id number] [place] [address] Jun, [facility] [place] [facility] [address] [id number] [place] [address] Jun, [facility] [place] [facility] [address] [id number] [place] [address] Jun, [facility] [place] [facility] [address] [id number] [place] [address] Jun, [facility] [place] [facility] [address] [id number] [place] [address] Jun, [facility] [place] [facility] [address] [id number] [place] [address] Jun, [facility] [place] [facility] [address] [id number] [place] [address] Jun, [facility] [place] [facility] [address] [id number] [place] [address] Jun, [facility] [place] [facility] [address] [id number] [place] [address] Jun, [facility] [place] [facility] [address] [id number] [place] [address] Jun, [facility] [place] [facility] [address] [id number] [place] [address] Jun, [facility] [place] [facility] [address] [id number] [place] [address] Jun, [facility] [place] [facility] [address] [id number] [place] [address] Jun, [facility] [place] [facility] [address] [id number] [place] [address] Jun, [facility] [place] [facility] [address] [id number] [place] [address] Jun, [facility] [place] [facility] [address] [id number] [place] [address] Jun, [facility] [place] [facility] [address] [id number] [place] [address] May, [facility] [place] [facility] [address] [id number] [place] [address] May, [facility] [place] [facility] [address] [id number] [place] [address] May, [facility] [place] [facility] [address] [id number] [place] [address] May, [facility] [place] [facility] [address] [id number] [place] [address] May, [facility] [place] [facility] [address] [id number] [place] [address] May, [facility] [place] [facility] [address] [id number] [place] [address] May, [facility] [place] [facility] [address] [id number] [place] [address] May, [facility] [place] [facility] [address] [id number] [place] [address] May, [facility] [place] [facility] [address] [id number] [place] [address] May, [facility] [place] [facility] [address] [id number] [place] [address] May, [facility] [place] [facility] [address] [id number] [place] [address] May, [facility] [place] [facility] [address] [id number] [place] [address] May, [facility] [place] [facility] [address] [id number] [place] [address] Apr, [facility] [place] [facility] [address] [id number] [place] [address] Apr, [facility] [place] [facility] [address] [id number] [place] [address] Apr, [facility] [place] [facility] [address] [id number] [place] [address] Apr, [facility] [place] [facility] [address] [id number] [place] [address] Apr, [facility] [place] [facility] [address] [id number] [place] [address] Apr, [facility] [place] [facility] [address] [id number] [place] [address] Apr, [facility] [place] [facility] [address] [id number] [place] [address] Apr, [facility] [place] [facility] [address] [id number] [place] [address] Apr, [facility] [place] [facility] [address] [id number] [place] [address] March, [facility] [place] [facility] [address] [id number] [place] [address] March, [facility] [place] [facility] [address] [id number] [place] [address] March, [facility] [place] [facility] [address] [id number] [place] [address] March, [facility] [place] [facility] [address] [id number] [place] [address] March, [facility] [place] [facility] [address] [id number] [place] [address] March, [facility] [address] [id number] [place] [address] March, [facility] [place] [facility] [address] [id number] [place] [address] March, [facility] [place] [facility] [address] [id number] [place] [address] March, [facility] [place] [facility] [address] [id number] [place] [address] March, [facility] [place] [facility] [address] [id number] [place] [address] March, [facility] [place] [facility] [address] [id number] [place] [address] March, [facility] [address] [id number] [place] [address] March, [facility] [place] [facility] [address] [id number] [place] [address] March, [facility] [place] [facility] [address] [id number] [place] [address] March, [facility] [place] [facility] [address] [id number] [place] [address] March, [facility] [place] [facility] [address] [id number] [place] [address] March, [facility] [place] [facility] [address] [id number] [place] [address] March, [facility] [place] [facility] [address] [id number] [place] [address] March, [facility] [place] [facility] [address] [id number] [place] [address] March, [facility] [place] [facility] [address] [id number] [place] [address] Feb, [facility] [place] [facility] [address] [id number] [place] [address] 29 Feb, 2014 [facility] [place] [facility] [address] [id number] [place] [address] Feb, [facility] [place] [facility] [address] [id number] [place] [address] Feb, [facility] [place] [facility] [address] [id number] [place] [address] Feb, [facility] [place] [facility] [address] [id number] [place] [address] Feb, [facility] [place] [facility] [address] [id number] [place] [address] Feb, [facility] [place] [facility] [address] [id number] [place] [address] Feb, [facility] [place] [facility] [address] [id number] [place] [address] Jan, [facility] [place] [facility] [address] [id number] [place] [address] Jan, [facility] [place] [facility] [address] [id number] [place] [address] Jan, [facility] [place] [facility] [address] [id number] [place] [address] 24 Jan, 2014 [facility] [place] [facility] [address] [id number] [place] [address] Jan, [facility] [place] [facility] [address] [id number] [place] [address] Jan, [facility] [place] [facility] [address] [id number] [place] [address] Jan, [facility] [place] [facility] [address] [id number] [place] [address] Jan, [facility] [place] [facility] [address] [id number] [place] [address] Jan, [facility] [place] [facility] [address] [id number] [place] [address] Jan, [facility] [place] [facility] [address] [id number] [place] [address] Dec, [facility] [place] [facility] [address] [id number] [place] [address] Dec, [facility] [place] [facility] [address] [id number] [place] [address] Dec, [facility] [place] [facility] [address] [id number] [place] [address] Dec, [facility] [place] [facility] [address] [id number] [place] [address] Dec, [facility] [place] [facility] [address] [id number] [place] [address] Dec, [facility] [place] [facility] [address] [id number] [place] [address] Dec, [facility] [place] [facility] [address] [id number] [place] [address] Dec, [facility] [place] [facility] [address] [id number] [place] [address] Nov, [facility] [place] [facility] [address] [id number] [place] [address] Nov, [facility] [place] [facility] [address] [id number] [place] [address] Nov, [facility] [place] [facility] [address] [id number] [place] [address] Nov, [facility] [place] [facility] [address] [id number] [place] [address] Nov, [facility] [place] [facility] [address] [id number] [place] [address] Nov, [facility] [place] [facility] [address] [id number] [place] [address] Nov, [facility] [address] [id number] [place] [address] Nov, [facility] [place] [facility] [address] [id number] [place] [address] Nov, [facility] [address] [id number] [place] [address] Nov, [facility] [address] [id number] [place] [address] Nov, [facility] [address] [id number] [place] [address] Nov, [facility] [address] [id number] [place] [address] Nov, [facility] [address] [id number] [place] [address] Oct, [facility] [address] [id number] [place] [address] 30 Oct, 2013 [facility] [address] [id number] [place] [address] Oct, [facility] [address] [id number] [place] [address] Oct, [facility] [place] [facility] [address] [id number] [place] [address] Oct, [facility] [address] [id number] [place] [address] Oct, [facility] [place] [facility] [address] [id number] [place] [address] Oct, [facility] [place] [facility] [address] [id number] [place] [address] Oct, [facility] [place] [facility] [address] [id number] [place] [address] Oct, [facility] [address] [id number] [place] [address] Oct, [facility] [place] [facility] [address] [id number] [place] [address] Oct, [facility] [place] [facility] [address] [id number] [place] [address] Oct, [facility] [place] [facility] [address] [id number] [place] [address] Oct, [facility] [place] [facility] [address] [id number] [place] [address] Oct, [facility] [place] [facility] [address] [id number] [place] [address] Sep, [facility] [place] [facility] [address] [id number] [place] [address] Sep, [facility] [place] [facility] [address] [id number], [place] [address] Sep, [facility] [place] [facility] [address] [id number] [place] [address] Sep, [facility] [place] [facility] [address] [id number], [place] [address] Sep, [facility] [place] [facility] [address] [id number], [place] [address] Sep, [facility] [place] [facility] [address] [id number], [place] [address] Sep, [facility] [place] [facility] [address] [id number][place] [address] Sep, [facility] [place] [facility] [address] [id number], [place] [address] Sep, [facility] [place] [facility] [address] [id number][place] [address] Sep, [facility] [place] [facility] [address] [id number] [place] [address] 24 Aug, 2012 [facility] [place] [facility] [address] [id number] [place] [address] 24 Aug, 2012 [facility] [place] [facility] [address] [id number] [place] [address] 24 Aug, 2012 [facility] [place] [facility] [address] [id number] [place] [address] 24 Aug, 2012 [facility] [place] [facility] [address] [id number] [place] [address] 23 Aug, 2012 [facility] [place] [facility] [address] [id number] [place] [address] 23 Aug, 2012 [facility] [place] [facility] [address] [id number] [place] [address] 23 Aug, 2012 [facility] [place] [facility] [address] [id number] [place] [address] 23 Aug, 2012 [facility] [place] [facility] [address] [id number] [place] [address] 22 Aug, 2012 [facility] [place] [facility] [address] [id number] [place] [address] 22 Aug, 2012 [facility] [place] [facility] [address] [id number] [place] [address] 18 Aug, 2012 [facility] [place] [facility] [address] [id number] [place] [address] 18 Aug, 2012 [facility] [place] [facility] [address] [id number], [place] [address] 18 Aug, 2012 [facility] [place] [facility] [address] [id number] [place] [address] 18 Aug, 2012 [facility] [place] [facility] [address] [id number] [place] [address] 17 Aug, 2012 [facility] [place] [facility] [address] [id number], [place] [address] 14 Aug2012 [facility] [place] [facility] [address] [id number] [place] [address] 14 Aug, 2013 [facility] [place] [facility] [address] [id number] [place] [address] Aug, [facility] [place] [facility] [address] [id number] [place] [address] 20 Jul, 2013 [facility] [place] [facility] [address] [id number] [place] [address] 19 Jul, 2013 [facility] [place] [facility] [address] [id number] [place] [address] 18 Jul, 2013 [facility] [place] [facility] [address] [id number] [place] [address] 11 Jul, 2013 [facility] [place] [facility] [address] [id number] [place] [address] Jul, [facility] [place] [facility] [address] [id number] [place] [address] Jun, [facility] [place] [facility] [address] [id number] [place] [address] Jun, [facility] [place] [facility] [address] [id number] [place] [address] Jun, [facility] [place] [facility] [address] [id number] [place] [address] 15 Jun, 2013 [facility] [place] [facility] [address] [id number] [place] [address] 14 Jun, 2013 [facility] [place] [facility] [address] [id number] [place] [address] Jun, [facility] [place] [facility] [address] [id number] [place] [address] Jun, [facility] [place] [facility] [address] [id number] [place] [address] 08 Jun, 2013 [facility] [place] [facility] [address] [id number] [place] [address] Jun, [facility] [place] [facility] [address] [id number] [place] [address] Jun, [facility] [place] [facility] [address] [id number] [place] [address] May, [facility] [place] [facility] [address] [id number] [place] [address] May, [facility] [place] [facility] [address] [id number] [place] [address] May, [facility] [place] [facility] [address] [id number] [place] [address] May, [facility] [place] [facility] [address] [id number] [place] [address] May, [facility] [place] [facility] [address] [id number] [place] [address] May, [facility] [place] [facility] [address] [id number] [place] [address] May, [facility] [place] [facility] [address] [id number] [place] [address] May, [facility] [place] [facility] [address] [id number] [place] [address] May, [facility] [place] [facility] [address] [id number] [place] [address] Apr, [facility] [place] [facility] [address] [id number] [place] [address] Apr, [facility] [place] [facility] [address] [id number] [place] [address] Apr, [facility] [place] [facility] [address] [id number] [place] [address] Apr, [facility] [place] [facility] [address] [id number] [place] [address] Apr, [facility] [place] [facility] [address] [id number] [place] [address] Apr, [facility] [address] [id number] [place] [address] Apr, [facility] [address] [id number] [place] [address] March, [facility] [address] [id number] [place] [address] Feb, [facility] [address] [id number] [place] [address] Feb, [facility] [address] [id number] [place] [address] Feb, [facility] [address] [id number] [place] [address] Jan, [facility] [address] [id number] [place] [address] Jan, [facility] [address] [id number] [place] [address] Jan, [facility] [address] [id number] [place] [address] Jan, [facility] [address] [id number] [place] [address] Jan, [facility] [address] [id number] [place] [address] Jan, [facility] [address] [id number] [place] [address] Jan, [facility] [address] [id number] [place] [address] Jan, [facility] [address] [id number] [place] [address] Dec, [facility] [address] [id number] [place] [address] Dec, [facility] [address] [id number] [place] [address] 13 Dec, 2012 [facility] [place] [facility] [address] [id number] [place] [address] Dec, [facility] [place] [facility] [address] [id number] [place] [address] 07 Dec, 2012 [facility] [place] [facility] [address] [id number] [place] [address] 06 Dec, 2012 [facility] [place] [facility] [address] [id number] [place] [address] Dec, [facility] [place] [facility] [address] [id number] [place] [address] Nov, [facility] [place] [facility] [address] [id number] [place] [address] Nov, [facility] [place] [facility] [address] [id number] [place] [address] Nov, [facility] [place] [facility] [address] [id number] [place] [address] Nov, [facility] [place] [facility] [address] [id number] [place] [address] Nov, [facility] [place] [facility] [address] [id number] [place] [address] Nov, [facility] [place] [facility] [address] [id number] [place] [address] Nov, [facility] [place] [facility] [address] [id number] [place] [address] Oct, [facility] [place] [facility] [address] [id number] [place] [address] Oct, [facility] [place] [facility] [address] [id number] [place] [address] Oct, [facility] [place] [facility] [address] [id number] [place] [address] Oct, [facility] [place] [facility] [address] [id number] [place] [address] Oct, [facility] [place] [facility] [address] [id number] [place] [address] Oct, [facility] [place] [facility] [address] [id number] [place] [address] Oct, [facility] [place] [facility] [address] [id number] [place] [address] Oct, [facility] [place] [facility] [address] [id number] [place] [address] Oct, [facility] [place] [facility] [address] [id number] [place] [address] Oct, [facility] [place] [facility] [address] [id number] [place] [address] Oct, [facility] [place] [facility] [address] [id number] [place] [address] Oct, [facility] [place] [facility] [address] [id number] [place] [address] Sep, [facility] [place] [facility] [address] [facility] [id number] [place] [address] Sep, [facility] [place] [facility] [address] [id number] [place] [address] Sep, [facility] [place] [facility] [address] [id number] [place] [address] Sep, [facility] [place] [facility] [address] [id number] [place] [address] Sep, [facility] [place] [facility] [address] [id number] [place] [address] Sep, [facility] [place] [facility] [address] [id number] [place] [address] Sep, [facility] [place] [facility] [address] [id number] [place] [address] Sep, [facility] [place] [facility] [address] [id number] [place] [address] Sep, [facility] [place] [facility] [address] [id number] [place] [address] Sep, [facility] [place] [facility] [address] [id number] [place] [address] Sep, [facility] [place] [facility] [address] [id number] [place] [address] Aug, [facility] [place] [facility] [address] [id number] [place] [address] Aug, [facility] [place] [facility] [address] [id number] [place] [address] Aug, [facility] [place] [facility] [address] [id number] [place] [address] Aug, [facility] [place] [facility] [address] [id number] [place] [address] Aug, [facility] [place] [facility] [address] [id number] [place] [address] Aug, [facility] [place] [facility] [address] [facility] [id number] [place] [address] Aug, [facility] [place] [facility] [address] [id number] [address] Aug, [facility] [place] [facility] [address] [id number] [place] [address] Aug, [facility] [place] [facility] [address] [id number] [place] [address] Aug, [facility] [place] [facility] [address] [id number], [place] [address] Jul, [facility] [place] [facility] [address] [id number], [place] [address] Jul, [facility] [place] [facility] [address] [id number] [place] [address] Jul, [facility] [place] [facility] [address] [id number] [place] [address] Jul, [facility] [place] [facility] [address] [id number] [place] [address] Jun, [facility] [place] [facility] [address] [id number] [place] [address] Jun, [facility] [place] [facility] [address] [id number] [place] [address] Jun, [facility] [place] [facility] [address] [id number] [place] [address] Jun, [facility] [place] [facility] [address] [id number] [place] [address] Jun, [facility] [place] [facility] [address] [id number] [place] [address] Jun, [facility] [place] [facility] [address] [id number] [place] [address] Jun, [facility] [place] [facility] [address] [id number] [place] [address] May, [facility] [place] [facility] [address] [id number] [place] [address] May, [facility] [place] [facility] [address] [id number] [place] [address] May, [facility] [place] [facility] [address] [id number] [place] [address] May, [facility] [place] [facility] [address] [id number] [place] [address] May, [facility] [place] [facility] [address] [id number] [place] [address] Apr, [facility] [place] [facility] [address] [id number] [place] [address] 18 Apr, 2012 [facility] [address] [id number] [place] [address] Apr, [facility] [address] [id number] [place] [address] Apr, [facility] [address] [id number] [place] [address] Apr, [facility] [address] [id number] [place] [address] March, [facility] [address] [id number] [place] [address] March, [facility] [address] [id number] [place] [address] March, [facility] [address] [id number] [place] [address] March, [facility] [address] [id number] [place] [address] March, [facility] [address] [id number] [place] [address] March, [facility] [address] [id number] [place] [address] March, [facility] [address] [id number] [place] [address] March, [facility] [address] [id number] [place] [address] March, [facility] [place] [facility] [address] [id number] [place] [address] March, [facility] [address] [id number] [place] [address] Feb, [facility] [address] [id number] [place] [address] Feb, [facility] [address] [id number] [place] [address] Feb, [facility] [place] [facility] [address] [id number] [place] [address] Feb, [facility] [place] [facility] [address] [id number] [place] [address] Feb, [facility] [place] [facility] [address] [id number] [place] [address] Feb, [facility] [place] [facility] [address] [id number] [place] [address] Feb, [facility] [place] [facility] [address] [id number] [place] [address] Feb, [facility] [place] [facility] [address] [id number] [place] [address] Feb, [facility] [place] [facility] [address] [id number] [place] [address] Jan, [facility] [place] [facility] [address] [id number] [place] [address] Jan, [facility] [place] [facility] [address] [id number] [place] [address] Jan, [facility] [place] [facility] [address] [id number] [place] [address] Jan, [facility] [place] [facility] [address] [id number] [place] [address] Dec, [facility] [place] [facility] [address] [id number] [place] [address] Dec, [facility] [place] [facility] [address] [id number] [place] [address] Nov, [facility] [place] [facility] [address] [id number] [place] [address] Nov, [facility] [place] [facility] [address] [id number] [address] Nov, [facility] [id number] [address] Nov, [facility] [id number] [address] Nov, [facility] [id number] [address] Oct, [facility] [id number] [address] Oct, [facility] [id number] [place] [address] Oct, [facility] [id number] [address] Oct, [facility] [id number] [address] Oct, [facility] [id number] [address] Oct, [facility] [id number] [address] Oct, [facility] [address] [id number] [address] Oct, [facility] [address] [id number], [place] [address] Sep, IMMUNIZATIONS No Known Immunizations SOCIAL HISTORY Never Assessed REASON FOR VISIT [facility] [place] PLAN OF CARE VITAL SIGNS MEDICATIONS Unknown Medications RESULTS No Results PROCEDURES No Known procedures INSTRUCTIONS MEDICATIONS ADMINISTERED No Known Medications MEDICAL (GENERAL) HISTORY Type Description Date 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 Surgical History No Surgical history information Hospitalization History [facility]- Urosepsis, abd pain and fever, discharged 11/27/2017 11/26/2017 Hospitalization History [facility] [place]- Went Unrepsonsive, Hit head 2017 Hospitalization History [facility] [place]- Back Pain 05/05/2018
--- OUTSIDE RECORDS SUMMARY | 2019-04-16 15:22 | XMS REPORT ---
Author Author Migration, Doctor Organization [facility] Address Unknown Phone Unavailable Care Team Providers Care Supervisor [employer] Name Role Phone Migration, Doctor Unavailable Unavailable PROBLEMS Type Condition ICD9-CM Code JSR68-HW Code Onset Dates Condition Status SNOMED Code Problem Coronary artery disease I25.10 Active 94043565 Problem Hypertension I10 Active 36385616 Problem Other chronic pain G89.29 Active 64821224 Problem Hyperlipidemia E78.5 Active 85347257 Problem Type 2 diabetes mellitus without complication, without long-term current use of insulin E11.9 Active 893367566 Problem Low back pain M54.5 Active 572356225 Problem Pharyngeal dysphagia R13.13 Active [id number] Problem Anxiety F41.9 Active 87001344 Problem Peripheral vascular disease I73.9 Active 176235723 Problem Suprapubic catheter Z93.59 Active 527451330 Problem Reactive depression F32.9 Active 61715921 Problem Neurogenic bladder N31.9 Active 549512495 Problem Ventral hernia without obstruction or gangrene K43.9 Active 938485806 Problem Insomnia G47.00 Active 692344886 Problem Paroxysmal atrial fibrillation I48.0 Active 335954452 Problem 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 Active 81901225 Problem Encounter for suprapubic catheter care Z43.5 Active [id number] ALLERGIES No Information ENCOUNTERS Encounter Location Date Diagnosis [facility] [address] [place] [id number] Jun, [facility] [address] [facility] [place] [id number] March, [facility] [address] [id number] [address] Feb, Other chronic pain G89.29 [facility] [address] [id number] [address] Feb, Anxiety F41.9 [facility] [address] [id number] [address] Feb, Other chronic pain G89.29 [facility] [address] [place] [id number] Feb, Neurogenic bladder N31.9 and Suprapubic catheter Z93.59 [facility] [address] [id number] [place] [address] Jan, Anxiety F41.9 [facility] [address] [id number] [place] [address] Dec, Anxiety F41.9 [facility] [address] [id number] [place] [address] Dec, Other chronic pain G89.29 and Anxiety F41.9 [facility] [address] [facility] [id number] [place] [address] Dec, [facility] [employer] [address] [place] [id number] Dec, Neurogenic bladder N31.9 and Suprapubic catheter Z93.59 [facility] [address] [facility] [id number] [place] [address] Nov, Other chronic pain G89.29 and Anxiety F41.9 [facility] [address] [facility] [id number] [place] [address] Nov, [facility] [employer] [address] [place] [id number] Nov, Suprapubic catheter Z93.59 [facility] [address] [facility] [id number] [place] [address] Oct, Other chronic pain G89.29 and Anxiety F41.9 [facility] [address] [facility] [id number] [place] [address] Oct, [facility] [address] [facility] [id number] [place] [address] Oct, Suprapubic catheter Z93.59 [facility] [address] [facility] [id number] [place] [address] Oct, [facility] [employer] [facility] [address] [place] [id number] Oct, [facility] [address] [id number] [place] [address] Oct, Anxiety F41.9 [facility] [address] [id number] [place] [address] Oct, Anxiety F41.9 [facility] [employer] [address] [place] [id number] Oct, Other chronic pain G89.29 [facility] [address] [id number] [place] [address] Sep, Other chronic pain G89.29 [facility] [address] [place] [id number] Sep, Suprapubic catheter Z93.59 and Cervicalgia M54.2 [facility] [address] [id number] [place] [address] Sep, [facility] [address] [id number] [place] [address] Sep, [facility] [address] [facility] [id number] [place] [address] Sep, [facility] [employer] [facility] [address] [place] [id number] Aug, Cystitis N30.90 [facility] [address] [id number] [place] [address] Aug, [facility] [address] [id number] [place] [address] Aug, Other chronic pain G89.29 [facility] [address] [id number] [place] [address] Aug, [facility] [employer] [address] [place] [id number] Aug, Encounter for suprapubic catheter care Z43.5 [facility] [address] [address] 20 Jul, 2018 [facility] [address] [place] [id number] Jul, [facility] [address] [address] Jul, Other chronic pain G89.29 [facility] [address] [address] Jul, [facility] [address] [address] Jul, [facility] [employer] [facility] [address] [place] [id number] Jun, 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 [address] [place] [address] Jun, Other chronic pain G89.29 [address] [place] [address] [place] [address] Jun, [facility] [address] [place] [id number] May, Anxiety F41.9 ; Type 2 diabetes mellitus without complication, without long-term current use of insulin E11.9 ; Hypertension I10 ; Low back pain M54.5 ; Paroxysmal atrial fibrillation I48.0 and 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 [address] [address] [address] May, Other chronic pain G89.29 [facility] [address] [place] [id number] May, Low back pain M54.5 [address] [address] [address] May, [address] [address] [address] Apr, Other chronic pain G89.29 [place] [address] [address] Apr, [facility] [address] [id number] [place] [address] Apr, [facility] [address] [place] [id number] 19 Apr, 2018 Closed compression fracture of L3 lumbar vertebra with routine healing, subsequent encounter S32.030D [facility] [address] [place] [id number] 14 Apr, 2018 Low back pain M54.5 [facility] [address] [place] [id number] 12 Apr, 2018 Coccydynia M53.3 [facility] [address] [id number] [place] [address] March, [facility] [address] [id number] [place] [address] March, Other chronic pain G89.29 [facility] [address] [id number] [place] [address] March, [facility] [address] [id number] [place] [address] March, [facility] [address] [id number] [place] [address] Feb, [facility] [address] [facility] [id number] [place] [address] Feb, Other chronic pain G89.29 [facility] [facility] [address] [place] [id number] Feb, Other chronic pain G89.29 and Anxiety F41.9 [facility] [address] [id number] [place] [address] Feb, [facility] [address] [facility] [id number] [place] [address] Jan, [facility] [address] [facility] [id number] [place] [address] Jan, [facility] [address] [facility] [id number] [place] [address] Jan, [facility] [address] [facility] [id number] [place] [address] Jan, [facility] [address] [id number] [place] [address] Dec, [facility] [address] [place] [id number] Dec, Peripheral vascular disease I73.9 ; 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 ; Other chronic pain G89.29 ; Anxiety F41.9 ; Reactive depression F32.9 ; Insomnia G47.00 and Type 2 diabetes mellitus without complication, without long-term current use of insulin E11.9 [address] [id number] [place] [address] Nov, [facility] [address] [id number] [place] [address] Nov, Anxiety F41.9 [facility] [address] [facility] [id number] [place] [address] Nov, [facility] [address] [id number] [place] [address] Nov, Anxiety F41.9 [facility] [address] [facility] [place] [id number] Nov, Status post surgery Z98.890 ; Confused R41.0 ; Anxiety F41.9 and Other chronic pain G89.29 [facility] [address] [id number] [place] [address] Nov, Other chronic pain G89.29 [facility] [address] [facility] [id number] [place] [address] Oct, [facility] [id number] [place] [id number] Oct, Other chronic pain G89.29 [facility] [address] [facility] [id number] [place] [address] Oct, Anxiety F41.9 [facility] [id number] [place] [address] Sep, Other chronic pain G89.29 [facility] [id number] [place] [id number] Sep, [facility] [address] [place] [id number] Aug, Dysuria R30.0 and Anxiety F41.9 [facility] [id number] [place] [address] Aug, [facility] [id number] [place] [id number] Aug, Other chronic pain G89.29 [facility] [address] [place] [address] Jul, Other chronic pain G89.29 [facility] [id number] [place] [id number] Jun, [facility] [id number] [place] [id number] Jun, Other chronic pain G89.29 [facility] [address] [place] [address] Jun, [facility] [address] [place] [address] May, Other chronic pain G89.29 [facility] [address] [place] [address] Apr, Other chronic pain G89.29 [facility] [address] [place] [id number] Apr, Reactive depression F32.9 and Pharyngeal dysphagia R13.13 [facility] [address] [id number] [place] [address] Apr, Urinary tract infection without hematuria, site unspecified N39.0 [facility] [address] [place] [address] March, Other chronic pain G89.29 [facility] [address] [address] Feb, Other chronic pain G89.29 [facility] [address] [address] Feb, [facility] [id number] [place] [id number] Feb, Via [employer] [address] [place] [id number] Feb, Dysuria R30.0 and Ventral hernia without obstruction or gangrene K43.9 [facility] [id number] [place] [address] Jan, Other chronic pain G89.29 [facility] [id number] [place] [id number] Dec, Other chronic pain G89.29 [facility] [id number] [place] [address] Nov, Other chronic pain G89.29 [facility] [employer] [address] [place] [id number] Nov, Lymphadenitis I88.9 [facility] [address] [place] [address] Nov, Other chronic pain G89.29 [facility] [address] [address] Nov, [facility] [id number] [place] [id number] Nov, Other chronic pain G89.29 [facility] [address] [place] [id number] Oct, Low back pain M54.5 ; Hypertension I10 and Type 2 diabetes mellitus without complication, without long-term current use of insulin E11.9 [facility] [address] [place] [address] Oct, [facility] [address] [facility] [id number] [place] [address] Oct, [facility] [address] [facility] [id number] [place] [address] Oct, [facility] [address] [facility] [id number] [place] [address] Oct, [facility] [address] [facility] [id number] [place] [address] Sep, [facility] [address] [facility] [id number] [place] [address] Sep, [facility] [address] [facility] [id number] [place] [address] Aug, Other chronic pain G89.29 [facility] [address] [facility] [id number] [place] [address] Jul, [facility] [address] [address] Jul, [facility] [address] [address] Jul, [facility] [address] [address] Jun, [facility] [address] [id number] [address] Jun, Via [facility] [place] [address] [place] [id number] Jun, Low back pain M54.5 ; Other chronic pain G89.29 and Coronary artery disease I25.10 [facility] [address] [facility] [id number] [place] [address] Jun, [facility] [address] [facility] [id number] [place] [address] May, [facility] [address] [id number] [address] May, [facility] [address] [address] May, Other chronic pain G89.29 [facility] [address] [address] May, [facility] [address] [address] 28 Apr, 2016 [facility] [address] [place] [address] 17 Apr, 2016 Acute cystitis without hematuria N30.00 [facility] [id number] [place] [address] 16 Apr, 2016 Acute cystitis without hematuria N30.00 ; Coronary artery disease I25.10 ; Low back pain M54.5 and Other chronic pain G89.29 [facility] [address] [address] Apr, Other chronic pain G89.29 [facility] [address] [address] March, Other chronic pain G89.29 [facility] [address] [address] 18 Feb, 2016 [facility] [address] [address] 15 Feb, 2016 Arthritis M19.90 [facility] [address] [address] Feb, [facility] [address] [address] 30 Jan, 2016 [facility] [address] [address] Jan, [facility] [address] [address] Jan, Other chronic pain G89.29 [facility] [address] [address] Jan, Hypertension I10 ; Coronary artery disease I25.10 and Insomnia G47.00 [facility] [address] [address] Jan, [facility] [id number] [place] [address] Dec, Right hip pain M25.551 [facility] [id number] [place] [address] Dec, [facility] [id number] [place] [address] Dec, [facility] [id number] [place] [address] Dec, [facility] [id number] [place] [address] Dec, Other chronic pain G89.29 [facility] [address] [place] [address] Dec, [facility] [address] [place] [address] Nov, [facility] [address] [address] Nov, Other chronic pain G89.29 [facility] [address] [place] [address] Nov, Right hip pain M25.551 and Coronary artery disease I25.10 [facility] [address] [place] [address] Nov, Other chronic pain G89.29 [facility] [address] [address] Oct, [facility] [id number] [place] [address] Oct, [facility] [address] [address] Sep, [facility] [address] [place] [address] Sep, [facility] [id number] [place] [address] Aug, [facility] [id number] [place] [address] Aug, Hypertension I10 ; Coronary artery disease I25.10 and Arthritis M19.90 [facility] [id number] [place] [address] Jun, [facility] [id number] [place] [address] Jun, Essential hypertension, benign 401.1 ; Other chronic pain 338.29 and Chronic airway obstruction, not elsewhere classified 496 [facility] [address] [address] Jun, [facility] [id number] [place] [address] Jun, [facility] [address] [address] Jun, [facility] [address] [address] May, [facility] [address] [address] May, [facility] [id number] [place] [address] Apr, [facility] [address] [address] 16 Apr, 2015 [facility] [address] [address] Apr, [facility] [address] [id number] [place] [address] March, [facility] [address] [id number] [place] [address] March, [facility] [address] [id number] [place] [address] March, [facility] [address] [id number] [place] [address] March, [facility] [address] [id number] [place] [address] March, Sialadenitis 527.2 [facility] [address] [id number] [place] [address] Feb, [facility] [address] [id number] [place] [address] Feb, [facility] [address] [id number] [place] [address] Feb, [facility] [address] [id number] [place] [address] Feb, [facility] [address] [facility] [id number] [place] [address] Feb, [facility] [address] [id number] [place] [address] Jan, [facility] [address] [id number] [place] [address] Jan, [facility] [address] [id number] [place] [address] Jan, [facility] [address] [id number] [place] [address] Jan, [facility] [address] [facility] [id number] [place] [address] Jan, [facility] [address] [id number] [place] [address] Jan, [facility] [place] [facility] [address] [id number] [place] [address] Dec, 2014 [facility] [place] [facility] [address] [id number] [place] [address] Dec, 2014 [facility] [place] [facility] [address] [id number] [place] [address] Dec, 2014 [facility] [place] [facility] [address] [id number] [place] [address] Dec, 2014 [facility] [place] [facility] [address] [id number] [place] [address] Dec, 2014 [facility] [place] [facility] [address] [id number] [place] [address] Dec, 2014 [facility] [place] [facility] [address] [id number] [place] [address] Nov, [facility] [place] [facility] [address] [id number] [place] [address] Nov, [facility] [place] [facility] [address] [id number] [place] [address] Nov, [facility] [place] [facility] [address] [id number] [place] [address] Nov, [facility] [place] [facility] [address] [id number] [place] [address] Nov, [facility] [place] [facility] [address] [id number] [place] [address] Nov, [facility] [place] [facility] [address] [id number] [place] [address] Nov, [facility] [place] [facility] [address] [id number] [place] [address] Nov, [facility] [place] [facility] [address] [id number] [place] [address] Nov, [facility] [place] [facility] [address] [id number] [place] [address] Nov, [facility] [place] [facility] [address] [id number] [place] [address] Nov, [facility] [place] [facility] [address] [id number] [place] [address] Nov, [facility] [place] [facility] [address] [id number] [place] [address] Nov, [facility] [place] [facility] [address] [id number] [place] [address] Nov, [facility] [place] [facility] [address] [id number] [place] [address] Oct, [facility] [place] [facility] [address] [id number] [place] [address] Oct, [facility] [place] [facility] [address] [id number] [place] [address] Oct, [facility] [place] [facility] [address] [id number] [place] [address] 18 Oct, 2014 [facility] [place] [facility] [address] [id number] [place] [address] 18 Oct, 2014 [facility] [place] [facility] [address] [id number] [place] [address] 17 Oct, 2014 [facility] [place] [facility] [address] [id number] [place] [address] 17 Oct, 2014 [facility] [place] [facility] [address] [id number] [place] [address] 10 Oct, 2014 [facility] [place] [facility] [address] [id number] [place] [address] Oct, [facility] [place] [facility] [address] [id number] [place] [address] Sep, [facility] [place] [facility] [address] [id number] [place] [address] Sep, [facility] [place] [facility] [address] [id number] [place] [address] Sep, [facility] [place] [facility] [address] [id number] [place] [address] Sep, [facility] [place] [facility] [address] [id number] [place] [address] Sep, [facility] [place] [facility] [address] [id number] [place] [address] Sep, [facility] [place] [facility] [address] [id number] [place] [address] Sep, [facility] [place] [facility] [address] [id number] [place] [address] Sep, [facility] [place] [facility] [address] [id number] [place] [address] Sep, [facility] [place] [facility] [address] [id number] [place] [address] Sep, [facility] [place] [facility] [address] [id number] [place] [address] Sep, [facility] [place] [facility] [address] [facility] [id number] [place] [address] Sep, [facility] [place] [facility] [address] [id number] [place] [address] Aug, [facility] [place] [facility] [address] [id number] [place] [address] Aug, [facility] [place] [facility] [address] [id number] [place] [address] Aug, [facility] [place] [facility] [address] [id number] [place] [address] Aug, [facility] [place] [facility] [address] [id number] [place] [address] Aug, [facility] [place] [facility] [address] [id number] [place] [address] 28 Aug, 2014 [facility] [place] [facility] [address] [id number] [place] [address] Aug, [facility] [place] [facility] [address] [id number] [place] [address] 17 Aug, 2013 [facility] [place] [facility] [address] [id number] [place] [address] 30 Jul, 2013 [facility] [place] [facility] [address] [id number] [place] [address] 30 Jul, 2013 [facility] [place] [facility] [address] [id number] [place] [address] 30 Jul, 2013 [facility] [place] [facility] [address] [id number] [place] [address] 30 Jul, 2013 [facility] [place] [facility] [address] [id number] [place] [address] 25 Jul, 2013 [facility] [place] [facility] [address] [id number] [place] [address] 25 Jul, 2013 [facility] [place] [facility] [address] [id number] [place] [address] 15 Jul, 2014 [facility] [place] [facility] [address] [id number] [place] [address] 15 Jul, 2014 [facility] [place] [facility] [address] [id number] [place] [address] 11 Jul, 2014 [facility] [place] [facility] [address] [id number] [place] [address] Jul, [facility] [place] [facility] [address] [id number] [place] [address] Jun, [facility] [place] [facility] [address] [id number] [place] [address] Jun, [facility] [place] [facility] [address] [id number] [place] [address] Jun, [facility] [place] [facility] [address] [id number] [place] [address] Jun, [facility] [place] [facility] [address] [id number] [place] [address] Jun, [facility] [place] [facility] [address] [id number] [place] [address] Jun, [facility] [place] [facility] [address] [id number] [place] [address] Jun, [facility] [place] [facility] [address] [id number] [place] [address] Jun, [facility] [place] [facility] [address] [id number] [place] [address] Jun, [facility] [place] [facility] [address] [id number] [place] [address] Jun, [facility] [place] [facility] [address] [id number] [place] [address] Jun, [facility] [place] [facility] [address] [id number] [place] [address] Jun, [facility] [place] [facility] [address] [id number] [place] [address] Jun, [facility] [place] [facility] [address] [id number] [place] [address] Jun, [facility] [place] [facility] [address] [id number] [place] [address] Jun, [facility] [place] [facility] [address] [id number] [place] [address] Jun, [facility] [place] [facility] [address] [id number] [place] [address] Jun, [facility] [place] [facility] [address] [id number] [place] [address] Jun, [facility] [place] [facility] [address] [id number] [place] [address] Jun, [facility] [place] [facility] [address] [id number] [place] [address] Jun, [facility] [place] [facility] [address] [id number] [place] [address] Jun, [facility] [place] [facility] [address] [id number] [place] [address] Jun, [facility] [place] [facility] [address] [id number] [place] [address] May, [facility] [place] [facility] [address] [id number] [place] [address] May, [facility] [place] [facility] [address] [id number] [place] [address] May, [facility] [place] [facility] [address] [id number] [place] [address] May, [facility] [place] [facility] [address] [id number] [place] [address] May, [facility] [place] [facility] [address] [id number] [place] [address] May, [facility] [place] [facility] [address] [id number] [place] [address] May, [facility] [place] [facility] [address] [id number] [place] [address] May, [facility] [place] [facility] [address] [id number] [place] [address] May, [facility] [place] [facility] [address] [id number] [place] [address] May, [facility] [place] [facility] [address] [id number] [place] [address] May, [facility] [place] [facility] [address] [id number] [place] [address] May, [facility] [place] [facility] [address] [id number] [place] [address] May, [facility] [place] [facility] [address] [id number] [place] [address] Apr, [facility] [place] [facility] [address] [id number] [place] [address] Apr, [facility] [place] [facility] [address] [id number] [place] [address] Apr, [facility] [place] [facility] [address] [id number] [place] [address] Apr, [facility] [place] [facility] [address] [id number] [place] [address] Apr, [facility] [place] [facility] [address] [id number] [place] [address] Apr, [facility] [place] [facility] [address] [id number] [place] [address] Apr, [facility] [place] [facility] [address] [id number] [place] [address] Apr, [facility] [place] [facility] [address] [id number] [place] [address] Apr, [facility] [place] [facility] [address] [id number] [place] [address] March, [facility] [place] [facility] [address] [id number] [place] [address] March, [facility] [place] [facility] [address] [id number] [place] [address] March, [facility] [place] [facility] [address] [id number] [place] [address] March, [facility] [place] [facility] [address] [id number] [place] [address] March, [facility] [place] [facility] [address] [id number] [place] [address] March, [facility] [address] [id number] [place] [address] March, [facility] [place] [facility] [address] [id number] [place] [address] March, [facility] [place] [facility] [address] [id number] [place] [address] March, [facility] [place] [facility] [address] [id number] [place] [address] March, [facility] [place] [facility] [address] [id number] [place] [address] March, [facility] [place] [facility] [address] [id number] [place] [address] March, [facility] [address] [id number] [place] [address] March, [facility] [place] [facility] [address] [id number] [place] [address] March, [facility] [place] [facility] [address] [id number] [place] [address] March, [facility] [place] [facility] [address] [id number] [place] [address] March, [facility] [place] [facility] [address] [id number] [place] [address] March, [facility] [place] [facility] [address] [id number] [place] [address] March, [facility] [place] [facility] [address] [id number] [place] [address] March, [facility] [place] [facility] [address] [id number] [place] [address] March, [facility] [place] [facility] [address] [id number] [place] [address] Feb, [facility] [place] [facility] [address] [id number] [place] [address] 29 Feb, 2014 [facility] [place] [facility] [address] [id number] [place] [address] Feb, [facility] [place] [facility] [address] [id number] [place] [address] Feb, [facility] [place] [facility] [address] [id number] [place] [address] Feb, [facility] [place] [facility] [address] [id number] [place] [address] Feb, [facility] [place] [facility] [address] [id number] [place] [address] Feb, [facility] [place] [facility] [address] [id number] [place] [address] Feb, [facility] [place] [facility] [address] [id number] [place] [address] Jan, [facility] [place] [facility] [address] [id number] [place] [address] Jan, [facility] [place] [facility] [address] [id number] [place] [address] Jan, [facility] [place] [facility] [address] [id number] [place] [address] 24 Jan, 2014 [facility] [place] [facility] [address] [id number] [place] [address] Jan, [facility] [place] [facility] [address] [id number] [place] [address] Jan, [facility] [place] [facility] [address] [id number] [place] [address] Jan, [facility] [place] [facility] [address] [id number] [place] [address] Jan, [facility] [place] [facility] [address] [id number] [place] [address] Jan, [facility] [place] [facility] [address] [id number] [place] [address] Jan, [facility] [place] [facility] [address] [id number] [place] [address] Dec, [facility] [place] [facility] [address] [id number] [place] [address] Dec, [facility] [place] [facility] [address] [id number] [place] [address] Dec, [facility] [place] [facility] [address] [id number] [place] [address] Dec, [facility] [place] [facility] [address] [id number] [place] [address] Dec, [facility] [place] [facility] [address] [id number] [place] [address] Dec, [facility] [place] [facility] [address] [id number] [place] [address] Dec, [facility] [place] [facility] [address] [id number] [place] [address] Dec, [facility] [place] [facility] [address] [id number] [place] [address] Nov, [facility] [place] [facility] [address] [id number] [place] [address] Nov, [facility] [place] [facility] [address] [id number] [place] [address] Nov, [facility] [place] [facility] [address] [id number] [place] [address] Nov, [facility] [place] [facility] [address] [id number] [place] [address] Nov, [facility] [place] [facility] [address] [id number] [place] [address] Nov, [facility] [place] [facility] [address] [id number] [place] [address] Nov, [facility] [address] [id number] [place] [address] Nov, [facility] [place] [facility] [address] [id number] [place] [address] Nov, [facility] [address] [id number] [place] [address] Nov, [facility] [address] [id number] [place] [address] Nov, [facility] [address] [id number] [place] [address] Nov, [facility] [address] [id number] [place] [address] Nov, [facility] [address] [id number] [place] [address] Oct, [facility] [address] [id number] [place] [address] 30 Oct, 2013 [facility] [address] [id number] [place] [address] Oct, [facility] [address] [id number] [place] [address] Oct, [facility] [place] [facility] [address] [id number] [place] [address] Oct, [facility] [address] [id number] [place] [address] Oct, [facility] [place] [facility] [address] [id number] [place] [address] Oct, [facility] [place] [facility] [address] [id number] [place] [address] Oct, [facility] [place] [facility] [address] [id number] [place] [address] Oct, [facility] [address] [id number] [place] [address] Oct, [facility] [place] [facility] [address] [id number] [place] [address] Oct, [facility] [place] [facility] [address] [id number] [place] [address] Oct, [facility] [place] [facility] [address] [id number] [place] [address] Oct, [facility] [place] [facility] [address] [id number] [place] [address] Oct, [facility] [place] [facility] [address] [id number] [place] [address] Sep, [facility] [place] [facility] [address] [id number] [place] [address] Sep, [facility] [place] [facility] [address] [id number] [place] [address] Sep, [facility] [place] [facility] [address] [id number] [place] [address] Sep, [facility] [place] [facility] [address] [id number] [place] [address] Sep, [facility] [place] [facility] [address] [id number] [place] [address] Sep, [facility] [place] [facility] [address] [id number] [place] [address] Sep, [facility] [place] [facility] [address] [id number] [place] [address] Sep, [facility] [place] [facility] [address] [id number] [place] [address] Sep, [facility] [place] [facility] [address] [id number] [place] [address] Sep, [facility] [place] [facility] [address] [id number] [place] [address] 24 Aug, 2012 [facility] [place] [facility] [address] [id number] [place] [address] 24 Aug, 2012 [facility] [place] [facility] [address] [id number] [place] [address] 24 Aug, 2012 [facility] [place] [facility] [address] [id number] [place] [address] 24 Aug, 2012 [facility] [place] [facility] [address] [id number] [place] [address] 23 Aug, 2012 [facility] [place] [facility] [address] [id number] [place] [address] 23 Aug, 2012 [facility] [place] [facility] [address] [id number] [place] [address] 23 Aug, 2012 [facility] [place] [facility] [address] [id number] [place] [address] 23 Aug, 2012 [facility] [place] [facility] [address] [id number] [place] [address] 22 Aug, 2012 [facility] [place] [facility] [address] [id number] [place] [address] 22 Aug, 2012 [facility] [place] [facility] [address] [id number] [place] [address] 18 Aug, 2012 [facility] [place] [facility] [address] [id number] [place] [address] 18 Aug, 2012 [facility] [place] [facility] [address] [id number] [place] [address] 18 Aug, 2012 [facility] [place] [facility] [address] [id number] [place] [address] 18 Aug, 2012 [facility] [place] [facility] [address] [id number] [place] [address] 17 Aug, 2012 [facility] [place] [facility] [address] [id number] [place] [address] 14 Aug2012 [facility] [place] [facility] [address] [id number] [place] [address] 14 Aug, 2013 [facility] [place] [facility] [address] [id number] [place] [address] Aug, [facility] [place] [facility] [address] [id number] [place] [address] 20 Jul, 2013 [facility] [place] [facility] [address] [id number] [place] [address] 19 Jul, 2013 [facility] [place] [facility] [address] [id number] [place] [address] 18 Jul, 2013 [facility] [place] [facility] [address] [id number] [place] [address] 11 Jul, 2013 [facility] [place] [facility] [address] [id number] [place] [address] Jul, [facility] [place] [facility] [address] [id number] [place] [address] Jun, [facility] [place] [facility] [address] [id number] [place] [address] Jun, [facility] [place] [facility] [address] [id number] [place] [address] Jun, [facility] [place] [facility] [address] [id number] [place] [address] 15 Jun, 2013 [facility] [place] [facility] [address] [id number] [place] [address] 14 Jun, 2013 [facility] [place] [facility] [address] [id number] [place] [address] Jun, [facility] [place] [facility] [address] [id number] [place] [address] Jun, [facility] [place] [facility] [address] [id number] [place] [address] 08 Jun, 2013 [facility] [place] [facility] [address] [id number] [place] [address] Jun, [facility] [place] [facility] [address] [id number] [place] [address] Jun, [facility] [place] [facility] [address] [id number] [place] [address] May, [facility] [place] [facility] [address] [id number] [place] [address] May, [facility] [place] [facility] [address] [id number] [place] [address] May, [facility] [place] [facility] [address] [id number] [place] [address] May, [facility] [place] [facility] [address] [id number] [place] [address] May, [facility] [place] [facility] [address] [id number] [place] [address] May, [facility] [place] [facility] [address] [id number] [place] [address] May, [facility] [place] [facility] [address] [id number] [place] [address] May, [facility] [place] [facility] [address] [id number] [place] [address] May, [facility] [place] [facility] [address] [id number] [place] [address] Apr, [facility] [place] [facility] [address] [id number] [place] [address] Apr, [facility] [place] [facility] [address] [id number] [place] [address] Apr, [facility] [place] [facility] [address] [id number] [place] [address] Apr, [facility] [place] [facility] [address] [id number] [place] [address] Apr, [facility] [place] [facility] [address] [id number] [place] [address] Apr, [facility] [address] [id number] [place] [address] Apr, [facility] [address] [id number] [place] [address] March, [facility] [address] [id number] [place] [address] Feb, [facility] [address] [id number] [place] [address] Feb, [facility] [address] [id number] [place] [address] Feb, [facility] [address] [id number] [place] [address] Jan, [facility] [address] [id number] [place] [address] Jan, [facility] [address] [id number] [place] [address] Jan, [facility] [address] [id number] [place] [address] Jan, [facility] [address] [id number] [place] [address] Jan, [facility] [address] [id number] [place] [address] Jan, [facility] [address] [id number] [place] [address] Jan, [facility] [address] [id number] [place] [address] Jan, [facility] [address] [id number] [place] [address] Dec, [facility] [address] [id number] [place] [address] Dec, [facility] [address] [id number] [place] [address] 13 Dec, 2012 [facility] [place] [facility] [address] [id number] [place] [address] Dec, [facility] [place] [facility] [address] [id number] [place] [address] 07 Dec, 2012 [facility] [place] [facility] [address] [id number] [place] [address] 06 Dec, 2012 [facility] [place] [facility] [address] [id number] [place] [address] Dec, [facility] [place] [facility] [address] [id number] [place] [address] Nov, [facility] [place] [facility] [address] [id number] [place] [address] Nov, [facility] [place] [facility] [address] [id number] [place] [address] Nov, [facility] [place] [facility] [address] [id number] [place] [address] Nov, [facility] [place] [facility] [address] [id number] [place] [address] Nov, [facility] [place] [facility] [address] [id number] [place] [address] Nov, [facility] [place] [facility] [address] [id number] [place] [address] Nov, [facility] [place] [facility] [address] [id number] [place] [address] Oct, [facility] [place] [facility] [address] [id number] [place] [address] Oct, [facility] [place] [facility] [address] [id number] [place] [address] Oct, [facility] [place] [facility] [address] [id number] [place] [address] Oct, [facility] [place] [facility] [address] [id number] [place] [address] Oct, [facility] [place] [facility] [address] [id number] [place] [address] Oct, [facility] [place] [facility] [address] [id number] [place] [address] Oct, [facility] [place] [facility] [address] [id number] [place] [address] Oct, [facility] [place] [facility] [address] [id number] [place] [address] Oct, [facility] [place] [facility] [address] [id number] [place] [address] Oct, [facility] [place] [facility] [address] [id number] [place] [address] Oct, [facility] [place] [facility] [address] [id number] [place] [address] Oct, [facility] [place] [facility] [address] [id number] [place] [address] Sep, [facility] [facility] [address] [facility] [id number] [place] [address] Sep, [facility] [place] [facility] [address] [id number] [place] [address] Sep, [facility] [place] [facility] [address] [id number] [place] [address] Sep, [facility] [place] [facility] [address] [id number] [place] [address] Sep, [facility] [place] [facility] [address] [id number] [place] [address] Sep, [facility] [place] [facility] [address] [id number] [place] [address] Sep, [facility] [place] [facility] [address] [id number] [place] [address] Sep, [facility] [place] [facility] [address] [id number] [place] [address] Sep, [facility] [place] [facility] [address] [id number] [place] [address] Sep, [facility] [place] [facility] [address] [id number] [place] [address] Sep, [facility] [place] [facility] [address] [id number] [place] [address] Aug, [facility] [place] [facility] [address] [id number] [place] [address] Aug, [facility] [place] [facility] [address] [id number] [place] [address] Aug, [facility] [place] [facility] [address] [id number] [place] [address] Aug, [facility] [place] [facility] [address] [id number] [place] [address] Aug, [facility] [place] [facility] [address] [id number] [place] [address] Aug, [facility] [place] [facility] [address] [facility] [id number] [place] [address] Aug, [facility] [place] [facility] [address] [id number] [place] [address] Aug, [facility] [place] [facility] [address] [id number] [place] [address] Aug, [facility] [place] [facility] [address] [id number] [place] [address] Aug, [facility] [place] [facility] [address] [id number] [place] [address] Jul, [facility] [facility] [address] [id number] [place] [address] Jul, [facility] [place] [facility] [address] [id number] [place] [address] Jul, [facility] [place] [facility] [address] [id number] [place] [address] Jul, [facility] [place] [facility] [address] [id number] [place] [address] Jun, [facility] [place] [facility] [address] [id number] [place] [address] Jun, [facility] [place] [facility] [address] [id number] [place] [address] Jun, [facility] [place] [facility] [address] [id number] [place] [address] Jun, [facility] [place] [facility] [address] [id number] [place] [address] Jun, [facility] [place] [facility] [address] [id number] [place] [address] Jun, [facility] [place] [facility] [address] [id number] [place] [address] Jun, [facility] [place] [facility] [address] [id number] [place] [address] May, [facility] [place] [facility] [address] [id number] [place] [address] May, [facility] [place] [facility] [address] [id number] [place] [address] May, [facility] [place] [facility] [address] [id number] [place] [address] May, [facility] [place] [facility] [address] [id number] [place] [address] May, [facility] [place] [facility] [address] [id number] [place] [address] Apr, [facility] [place] [facility] [address] [id number] [place] [address] 18 Apr, 2012 [facility] [address] [id number] [place] [address] Apr, [facility] [address] [id number] [place] [address] Apr, [facility] [address] [id number] [place] [address] Apr, [facility] [address] [id number] [place] [address] March, [facility] [address] [id number] [place] [address] March, [facility] [address] [id number] [place] [address] March, [facility] [address] [id number] [place] [address] March, [facility] [address] [id number] [place] [address] March, [facility] [address] [id number] [place] [address] March, [facility] [address] [id number] [place] [address] March, [facility] [address] [id number] [place] [address] March, [facility] [address] [id number] [place] [address] March, [facility] [address] [id number] [place] [address] March, [facility] [address] [id number] [place] [address] Feb, [facility] [address] [id number] [place] [address] Feb, [facility] [address] [id number] [place] [address] Feb, [facility] [facility] [address] [id number] [place] [address] Feb, [facility] [address] [id number] [place] [address] Feb, [facility] [address] [id number] [place] [address] Feb, [facility] [address] [id number] [place] [address] Feb, [facility] [address] [id number] [place] [address] Feb, [facility] [place] [facility] [address] [id number] [place] [address] Feb, [facility] [place] [facility] [address] [id number] [place] [address] Jan, [facility] [address] [id number] [place] [address] Jan, [facility] [facility] [address] [id number] [place] [address] Jan, [facility] [address] [id number] [place] [address] Jan, [facility] [address] [id number] [place] [address] Dec, [facility] [address] [id number] [place] [address] Dec, [facility] [address] [id number] [place] [address] Nov, [facility] [address] [id number] [place] [address] Nov, [facility] [address] [id number] [place] [address] Nov, [facility] [id number] [place] [address] Nov, [facility] [id number] [place] [address] Nov, [facility] [id number] [place] [address] Oct, [facility] [id number] [place] [address] Oct, [facility] [id number] [place] [address] Oct, [facility] [id number] [place] [address] Oct, [facility] [id number] [place] [address] Oct, [facility] [id number] [place] [address] Oct, [facility] [id number] [place] [address] Oct, [facility] [address] [id number] [place] [address] Oct, [facility] [address] [id number] [place] [address] Sep, IMMUNIZATIONS No Known Immunizations SOCIAL HISTORY Never Assessed REASON FOR VISIT [facility] PLAN OF CARE VITAL SIGNS MEDICATIONS Unknown Medications RESULTS No Results PROCEDURES No Known procedures INSTRUCTIONS MEDICATIONS ADMINISTERED No Known Medications MEDICAL (GENERAL) HISTORY Type Description Date 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
--- OUTSIDE RECORDS SUMMARY | 2019-04-16 15:24 | XMS REPORT ---
Author Author Migration, Doctor Organization [facility] Address Unknown Phone Unavailable Care Team Providers Care Body Component Engineer Name Role Phone Migration, Doctor Unavailable Unavailable PROBLEMS Type Condition ICD9-CM Code LWE38-DS Code Onset Dates Condition Status SNOMED Code Problem Coronary artery disease I25.10 Active 13223024 Problem Hypertension I10 Active 98828130 Problem Other chronic pain G89.29 Active 47083450 Problem Hyperlipidemia E78.5 Active 29127995 Problem Type 2 diabetes mellitus without complication, without long-term current use of insulin E11.9 Active 309785817 Problem Low back pain M54.5 Active 668623668 Problem Pharyngeal dysphagia R13.13 Active [id number] Problem Anxiety F41.9 Active 43483270 Problem Peripheral vascular disease I73.9 Active 907761463 Problem Suprapubic catheter Z93.59 Active 009358871 Problem Reactive depression F32.9 Active 36061494 Problem Neurogenic bladder N31.9 Active 228875142 Problem Ventral hernia without obstruction or gangrene K43.9 Active 002517250 Problem Insomnia G47.00 Active 722006543 Problem Paroxysmal atrial fibrillation I48.0 Active 513146660 Problem 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 Active 80935978 Problem Encounter for suprapubic catheter care Z43.5 Active [id number] ALLERGIES No Information ENCOUNTERS Encounter Location Date Diagnosis Via [facility] [address] [place] [id number] Jun, Via [facility] [address] [facility] [place] [id number] March, [facility] [id number] [address] Feb, Other chronic pain G89.29 [facility] [address] [id number] [address] Feb, Anxiety F41.9 [facility] [address] [id number] [address] Feb, Other chronic pain G89.29 Via [facility] [address] [place] [id number] Feb, Neurogenic bladder N31.9 and Suprapubic catheter Z93.59 [facility] [address] [id number] [place] [address] Jan, Anxiety F41.9 [facility] [id number] [place] [address] Dec, Anxiety F41.9 [facility] [address] [id number] [place] [address] Dec, Other chronic pain G89.29 and Anxiety F41.9 [facility] [address] [facility] [id number] [place] [address] Dec, Via [employer] [facility] [facility] [address] [place] [id number] Dec, Neurogenic bladder N31.9 and Suprapubic catheter Z93.59 [facility] [address] [facility] [id number] [place] [address] Nov, Other chronic pain G89.29 and Anxiety F41.9 [facility] [address] [facility] [id number] [place] [address] Nov, Via [employer] [facility] [address] [place] [id number] Nov, Suprapubic catheter Z93.59 [facility] [address] [facility] [id number] [place] [address] Oct, Other chronic pain G89.29 and Anxiety F41.9 [facility] [address] [facility] [id number] [place] [address] Oct, [facility] [address] [facility] [id number] [place] [address] Oct, Suprapubic catheter Z93.59 [facility] [address] [facility] [id number] [place] [address] Oct, Via [employer] [address] [place] [id number] Oct, [facility] [address] [id number] [address] Oct, Anxiety F41.9 [facility] [address] [id number] [place] [address] Oct, Anxiety F41.9 Via [employer] [address] [place] [id number] Oct, Other chronic pain G89.29 [facility] [address] [id number] [place] [address] Sep, Other chronic pain G89.29 Via [employer] [address] [place] [id number] Sep, Suprapubic catheter Z93.59 and Cervicalgia M54.2 [facility] [address] [id number] [address] Sep, [facility] [address] [id number] [place] [address] Sep, [facility] [address] [facility] [id number] [place] [address] Sep, Via [employer] [address] [place] [id number] Aug, Cystitis N30.90 [facility] [address] [id number] [address] Aug, [facility] [address] [id number] [address] Aug, Other chronic pain G89.29 [facility] [address] [id number] [place] [address] Aug, Via [employer] [address] [place] [address] Aug, Encounter for suprapubic catheter care Z43.5 [facility] [address] [address] 20 Jul, 2018 Via [employer] [address] [place] [id number] Jul, [facility] [address] [address] Jul, Other chronic pain G89.29 [facility] [address] [address] Jul, [facility] [address]100[place] [address] Jul, Via [employer] [address] [place] [id number] Jun, 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 [id number] [place] [address] Jun, Other chronic pain G89.29 [address] [place] [address] Jun, Via [employer] [address] [place] [id number] May, Anxiety F41.9 ; Type 2 diabetes mellitus without complication, without long-term current use of insulin E11.9 ; Hypertension I10 ; Low back pain M54.5 ; Paroxysmal atrial fibrillation I48.0 and 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 [address] [address] May, Other chronic pain G89.29 [facility] [employer] [address] [place] [id number] May, Low back pain M54.5 [address] [address] May, [address] [place] [address] Apr, Other chronic pain G89.29 [address] [place] [address] [address] Apr, [facility] [address] [id number] [place] [address] Apr, Via [facility] [address] [place] [id number] 19 Apr, 2018 Closed compression fracture of L3 lumbar vertebra with routine healing, subsequent encounter S32.030D [facility] [address] [place] [id number] 14 Apr, 2018 Low back pain M54.5 Via [employer] [address] [place] [id number] 12 Apr, 2018 Coccydynia M53.3 [facility] [address] [id number] [place] [address] March, [facility] [address] [id number] [place] [address] March, Other chronic pain G89.29 [facility] [address] [id number] [place] [address] March, [facility] [address] [id number] [address] March, [facility] [address] [id number] [place] [address] Feb, [facility] [address] [facility] [id number] [place] [address] Feb, Other chronic pain G89.29 [facility] [employer] [facility] [address] [place] [id number] Feb, Other chronic pain G89.29 and Anxiety F41.9 [facility] [address] [id number] [address] Feb, [facility] [address] [facility] [id number] [place] [address] Jan, [facility] [address] [facility] [id number] [place] [address] Jan, [facility] [address] [facility] [id number] [place] [address] Jan, [facility] [address] [facility] [id number] [address] Jan, [facility] [address] [id number] [address] Dec, Via [facility] [address] [place] [address] Dec, Peripheral vascular disease I73.9 ; 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 ; Other chronic pain G89.29 ; Anxiety F41.9 ; Reactive depression F32.9 ; Insomnia G47.00 and Type 2 diabetes mellitus without complication, without long-term current use of insulin E11.9 [address] [id number] [place] [address] Nov, [facility] [address] [id number] [place] [address] Nov, Anxiety F41.9 [facility] [address] [facility] [id number] [place] [address] Nov, [facility] [address] [id number] [place] [address] Nov, Anxiety F41.9 [facility] [employer] [address] [facility] [facility] [place] [id number] Nov, Status post surgery Z98.890 ; Confused R41.0 ; Anxiety F41.9 and Other chronic pain G89.29 [facility] [address] [id number] [place] [address] Nov, Other chronic pain G89.29 [facility] [address] [facility] [id number] [address] Oct, [facility] [id number] [place] [id number] Oct, Other chronic pain G89.29 [facility] [address] [facility] [id number] [place] [address] Oct, Anxiety F41.9 [facility] [id number] [place] [address] Sep, Other chronic pain G89.29 [facility] [id number] [place] [id number] Sep, Via [employer] [facility] [address] [place] [id number] Aug, Dysuria R30.0 and Anxiety F41.9 [facility] [address] [place] [address] Aug, [facility] [id number] [place] [id number] Aug, Other chronic pain G89.29 [facility] [address] [place] [address] Jul, Other chronic pain G89.29 [facility] [id number] [place] [id number] Jun, [facility] [id number] [place] [id number] Jun, Other chronic pain G89.29 [facility] [address] [place] [address] Jun, [facility] [address] [address] May, Other chronic pain G89.29 [facility] [address] [place] [address] Apr, Other chronic pain G89.29 Via [employer] [address] [place] [id number] Apr, Reactive depression F32.9 and Pharyngeal dysphagia R13.13 [facility] [address] [id number] [address] Apr, Urinary tract infection without hematuria, site unspecified N39.0 [facility] [address] [place] [address] March, Other chronic pain G89.29 [facility] [address] [address] Feb, Other chronic pain G89.29 [facility] [address] [address] Feb, [facility] [id number] [place] [id number] Feb, Via [employer] [facility] [address] [place] [id number] Feb, Dysuria R30.0 and Ventral hernia without obstruction or gangrene K43.9 [facility] [id number] [place] [address] Jan, Other chronic pain G89.29 [facility] [id number] [place] [id number] Dec, Other chronic pain G89.29 [facility] [id number] [place] [address] Nov, Other chronic pain G89.29 Via [facility] [address] [place] [id number] Nov, Lymphadenitis I88.9 [facility] [address] [place] [address] Nov, Other chronic pain G89.29 [facility] [address] [address] Nov, [facility] [id number] [place] [id number] Nov, Other chronic pain G89.29 [facility] [address] [place] [id number] Oct, Low back pain M54.5 ; Hypertension I10 and Type 2 diabetes mellitus without complication, without long-term current use of insulin E11.9 [facility] [address] [place] [address] Oct, [facility] [address] [facility] [id number] [address] Oct, [facility] [address] [facility] [id number] [place] [address] Oct, [facility] [address] [facility] [id number] [place] [address] Oct, [facility] [address] [facility] [id number] [address] Sep, [facility] [address] [facility] [id number] [place] [address] Sep, [facility] [address] [facility] [id number] [address] Aug, Other chronic pain G89.29 [facility] [address] [facility] [id number] [place] [address] Jul, [facility] [address] [address] Jul, [facility] [address] [address] Jul, [facility] [address] [address] Jun, [facility] [address] [id number] [address] Jun, Via [facility] [address] [facility] [address] [place] [id number] Jun, Low back pain M54.5 ; Other chronic pain G89.29 and Coronary artery disease I25.10 [facility] [address] [facility] [id number] [place] [address] Jun, [facility] [address] [facility] [id number] [place] [address] May, [facility] [id number] [address] May, [facility] [address] [address] May, Other chronic pain G89.29 [facility] [address] [address] May, [facility] [address] [address] 28 Apr, 2016 [facility] [address] [place] [address] 17 Apr, 2016 Acute cystitis without hematuria N30.00 [facility] [id number] [place] [address] 16 Apr, 2016 Acute cystitis without hematuria N30.00 ; Coronary artery disease I25.10 ; Low back pain M54.5 and Other chronic pain G89.29 [facility] [address] [address] Apr, Other chronic pain G89.29 [facility] [address] [address] March, Other chronic pain G89.29 [facility] [address] [address] 18 Feb, 2016 [facility] [address] [address] 15 Feb, 2016 Arthritis M19.90 [facility] [address] [address] Feb, [facility] [address] [address] 30 Jan, 2016 [facility] [address] [address] Jan, [facility] [address] [address] Jan, Other chronic pain G89.29 [facility] [address] [address] Jan, Hypertension I10 ; Coronary artery disease I25.10 and Insomnia G47.00 [facility] [address] [address] Jan, [facility] [id number] [place] [address] Dec, Right hip pain M25.551 [facility] [id number] [place] [address] Dec, [facility] [id number] [place] [address] Dec, [facility] [id number] [place] [address] Dec, [facility] [id number] [place] [address] Dec, Other chronic pain G89.29 [facility] [address] [place] [address] Dec, [facility] [address] [place] [address] Nov, [facility] [address] [address] Nov, Other chronic pain G89.29 [facility] [address] [place] [address] Nov, Right hip pain M25.551 and Coronary artery disease I25.10 [facility] [address] [place] [address] Nov, Other chronic pain G89.29 [facility] [address] [address] Oct, [facility] [id number] [place] [address] Oct, [facility] [address] [address] Sep, [facility] [address] [place] [address] Sep, [facility] [id number] [place] [address] Aug, [facility] [id number] [place] [address] Aug, Hypertension I10 ; Coronary artery disease I25.10 and Arthritis M19.90 [facility] [id number] [place] [address] Jun, [facility] [id number] [place] [address] Jun, Essential hypertension, benign 401.1 ; Other chronic pain 338.29 and Chronic airway obstruction, not elsewhere classified 496 [facility] [address]100[place] [address] Jun, [facility] [id number] [place] [address] Jun, [facility] [address] [address] Jun, [facility] [address]100[place] [address] May, [facility] [address] [address] May, [facility] [address] [place] [address] Apr, [facility] [address] [address] 16 Apr, 2015 [facility] [address] [address] Apr, [facility] [address] [id number] [place] [address] March, [facility] [address] [id number] [place] [address] March, [facility] [address] [id number] [place] [address] March, [facility] [address] [id number] [place] [address] March, [facility] [address] [id number] [place] [address] March, Sialadenitis 527.2 [facility] [address] [id number] [place] [address] Feb, [facility] [address] [id number] [place] [address] Feb, [facility] [address] [id number] [place] [address] Feb, [facility] [address] [id number] [place] [address] Feb, [facility] [address] [facility] [id number] [place] [address] Feb, [facility] [address] [id number] [address] Jan, [facility] [address] [id number] [address] Jan, [facility] [address] [id number] [place] [address] Jan, [facility] [address] [id number] [place] [address] Jan, [facility] [address] [facility] [id number] [place] [address] Jan, [facility] [address] [id number] [place] [address] Jan, [facility] [place] [facility] [address] [id number] [place] [address] Dec, 2014 [facility] [place] [facility] [address] [id number] [place] [address] Dec, 2014 [facility] [place] [facility] [address] [id number] [place] [address] Dec, 2014 [facility] [place] [facility] [address] [id number] [place] [address] Dec, 2014 [facility] [place] [facility] [address] [id number] [place] [address] Dec, 2014 [facility] [place] [facility] [address] [id number] [place] [address] Dec, 2014 [facility] [place] [facility] [address] [id number] [place] [address] Nov, [facility] [place] [facility] [address] [id number] [place] [address] Nov, [facility] [place] [facility] [address] [id number] [place] [address] Nov, [facility] [place] [facility] [address] [id number] [place] [address] Nov, [facility] [place] [facility] [address] [id number] [place] [address] Nov, [facility] [place] [facility] [address] [id number] [place] [address] Nov, [facility] [place] [facility] [address] [id number] [place] [address] Nov, [facility] [place] [facility] [address] [id number] [place] [address] Nov, [facility] [place] [facility] [address] [id number] [place] [address] Nov, [facility] [place] [facility] [address] [id number] [place] [address] Nov, [facility] [place] [facility] [address] [id number] [place] [address] Nov, [facility] [place] [facility] [address] [id number] [place] [address] Nov, [facility] [place] [facility] [address] [id number] [place] [address] Nov, [facility] [place] [facility] [address] [id number] [place] [address] Nov, [facility] [place] [facility] [address] [id number] [place] [address] Oct, [facility] [place] [facility] [address] [id number] [place] [address] Oct, [facility] [place] [facility] [address] [id number] [place] [address] Oct, [facility] [place] [facility] [address] [id number] [place] [address] 18 Oct, 2014 [facility] [place] [facility] [address] [id number] [place] [address] 18 Oct, 2014 [facility] [place] [facility] [address] [id number] [place] [address] 17 Oct, 2014 [facility] [place] [facility] [address] [id number] [place] [address] 17 Oct, 2014 [facility] [place] [facility] [address] [id number] [place] [address] 10 Oct, 2014 [facility] [place] [facility] [address] [id number] [place] [address] Oct, [facility] [place] [facility] [address] [id number] [place] [address] Sep, [facility] [place] [facility] [address] [id number] [place] [address] Sep, [facility] [place] [facility] [address] [id number] [place] [address] Sep, [facility] [place] [facility] [address] [id number] [place] [address] Sep, [facility] [place] [facility] [address] [id number] [place] [address] Sep, [facility] [place] [facility] [address] [id number] [place] [address] Sep, [facility] [place] [facility] [address] [id number] [place] [address] Sep, [facility] [place] [facility] [address] [id number] [place] [address] Sep, [facility] [place] [facility] [address] [id number] [place] [address] Sep, [facility] [place] [facility] [address] [id number] [place] [address] Sep, [facility] [place] [facility] [address] [id number] [place] [address] Sep, [facility] [place] [facility] [address] [facility] [id number] [place] [address] Sep, [facility] [place] [facility] [address] [id number] [place] [address] Aug, [facility] [place] [facility] [address] [id number] [address] Aug, [facility] [place] [facility] [address] [id number] [place] [address] Aug, [facility] [place] [facility] [address] [id number] [place] [address] Aug, [facility] [place] [facility] [address] [id number] [place] [address] Aug, [facility] [place] [facility] [address] [id number] [place] [address] 28 Aug, 2014 [facility] [place] [facility] [address] [id number] [place] [address] Aug, [facility] [place] [facility] [address] [id number] [place] [address] 17 Aug, 2013 [facility] [place] [facility] [address] [id number] [place] [address] 30 Jul, 2013 [facility] [place] [facility] [address] [id number] [place] [address] 30 Jul, 2013 [facility] [place] [facility] [address] [id number] [place] [address] 30 Jul, 2013 [facility] [place] [facility] [address] [id number] [place] [address] 30 Jul, 2013 [facility] [place] [facility] [address] [id number] [place] [address] 25 Jul, 2013 [facility] [place] [facility] [address] [id number] [place] [address] 25 Jul, 2013 [facility] [place] [facility] [address] [id number] [place] [address] 15 Jul, 2014 [facility] [place] [facility] [address] [id number] [place] [address] 15 Jul, 2014 [facility] [place] [facility] [address] [id number] [place] [address] 11 Jul, 2014 [facility] [place] [facility] [address] [id number] [place] [address] Jul, [facility] [place] [facility] [address] [id number] [place] [address] Jun, [facility] [place] [facility] [address] [id number] [place] [address] Jun, [facility] [place] [facility] [address] [id number] [place] [address] Jun, [facility] [place] [facility] [address] [id number] [place] [address] Jun, [facility] [place] [facility] [address] [id number] [place] [address] Jun, [facility] [place] [facility] [address] [id number] [place] [address] Jun, [facility] [place] [facility] [address] [id number] [place] [address] Jun, [facility] [place] [facility] [address] [id number] [place] [address] Jun, [facility] [place] [facility] [address] [id number] [place] [address] Jun, [facility] [place] [facility] [address] [id number] [place] [address] Jun, [facility] [place] [facility] [address] [id number] [place] [address] Jun, [facility] [place] [facility] [address] [id number] [place] [address] Jun, [facility] [place] [facility] [address] [id number] [place] [address] Jun, [facility] [place] [facility] [address] [id number] [place] [address] Jun, [facility] [place] [facility] [address] [id number] [place] [address] Jun, [facility] [place] [facility] [address] [id number] [place] [address] Jun, [facility] [place] [facility] [address] [id number] [place] [address] Jun, [facility] [place] [facility] [address] [id number] [place] [address] Jun, [facility] [place] [facility] [address] [id number] [place] [address] Jun, [facility] [place] [facility] [address] [id number] [place] [address] Jun, [facility] [place] [facility] [address] [id number] [place] [address] Jun, [facility] [place] [facility] [address] [id number] [place] [address] Jun, [facility] [place] [facility] [address] [id number] [place] [address] May, [facility] [place] [facility] [address] [id number] [place] [address] May, [facility] [place] [facility] [address] [id number] [place] [address] May, [facility] [place] [facility] [address] [id number] [place] [address] May, [facility] [place] [facility] [address] [id number] [place] [address] May, [facility] [place] [facility] [address] [id number] [place] [address] May, [facility] [place] [facility] [address] [id number] [place] [address] May, [facility] [place] [facility] [address] [id number] [place] [address] May, [facility] [place] [facility] [address] [id number] [place] [address] May, [facility] [place] [facility] [address] [id number] [place] [address] May, [facility] [place] [facility] [address] [id number] [place] [address] May, [facility] [place] [facility] [address] [id number] [place] [address] May, [facility] [place] [facility] [address] [id number] [place] [address] May, [facility] [place] [facility] [address] [id number] [place] [address] Apr, [facility] [place] [facility] [address] [id number] [place] [address] Apr, [facility] [place] [facility] [address] [id number] [place] [address] Apr, [facility] [place] [facility] [address] [id number] [place] [address] Apr, [facility] [place] [facility] [address] [id number] [place] [address] Apr, [facility] [place] [facility] [address] [id number] [place] [address] Apr, [facility] [place] [facility] [address] [id number] [place] [address] Apr, [facility] [place] [facility] [address] [id number] [place] [address] Apr, [facility] [place] [facility] [address] [id number] [place] [address] Apr, [facility] [place] [facility] [address] [id number] [place] [address] March, [facility] [place] [facility] [address] [id number] [place] [address] March, [facility] [place] [facility] [address] [id number] [place] [address] March, [facility] [place] [facility] [address] [id number] [place] [address] March, [facility] [place] [facility] [address] [id number] [place] [address] March, [facility] [place] [facility] [address] [id number] [place] [address] March, [facility] [address] [id number] [place] [address] March, [facility] [place] [facility] [address] [id number] [place] [address] March, [facility] [place] [facility] [address] [id number] [place] [address] March, [facility] [place] [facility] [address] [id number] [place] [address] March, [facility] [place] [facility] [address] [id number] [place] [address] March, [facility] [place] [facility] [address] [id number] [place] [address] March, [facility] [address] [id number] [place] [address] March, [facility] [place] [facility] [address] [id number] [place] [address] March, [facility] [place] [facility] [address] [id number] [place] [address] March, [facility] [place] [facility] [address] [id number] [place] [address] March, [facility] [place] [facility] [address] [id number] [place] [address] March, [facility] [place] [facility] [address] [id number] [place] [address] March, [facility] [place] [facility] [address] [id number] [place] [address] March, [facility] [place] [facility] [address] [id number] [place] [address] March, [facility] [place] [facility] [address] [id number] [place] [address] Feb, [facility] [place] [facility] [address] [id number] [place] [address] 29 Feb, 2014 [facility] [place] [facility] [address] [id number] [place] [address] Feb, [facility] [place] [facility] [address] [id number] [place] [address] Feb, [facility] [place] [facility] [address] [id number] [place] [address] Feb, [facility] [place] [facility] [address] [id number] [place] [address] Feb, [facility] [place] [facility] [address] [id number] [place] [address] Feb, [facility] [place] [facility] [address] [id number] [place] [address] Feb, [facility] [place] [facility] [address] [id number] [place] [address] Jan, [facility] [place] [facility] [address] [id number] [place] [address] Jan, [facility] [place] [facility] [address] [id number] [place] [address] Jan, [facility] [place] [facility] [address] [id number] [place] [address] 24 Jan, 2014 [facility] [place] [facility] [address] [id number] [place] [address] Jan, [facility] [place] [facility] [address] [id number] [place] [address] Jan, [facility] [place] [facility] [address] [id number] [place] [address] Jan, [facility] [place] [facility] [address] [id number] [place] [address] Jan, [facility] [place] [facility] [address] [id number] [place] [address] Jan, [facility] [place] [facility] [address] [id number] [place] [address] Jan, [facility] [place] [facility] [address] [id number] [place] [address] Dec, [facility] [place] [facility] [address] [id number] [place] [address] Dec, [facility] [place] [facility] [address] [id number] [place] [address] Dec, [facility] [place] [facility] [address] [id number] [place] [address] Dec, [facility] [place] [facility] [address] [id number] [place] [address] Dec, [facility] [place] [facility] [address] [id number] [place] [address] Dec, [facility] [place] [facility] [address] [id number] [place] [address] Dec, [facility] [place] [facility] [address] [id number] [place] [address] Dec, [facility] [place] [facility] [address] [id number] [place] [address] Nov, [facility] [place] [facility] [address] [id number] [place] [address] Nov, [facility] [place] [facility] [address] [id number] [place] [address] Nov, [facility] [place] [facility] [address] [id number] [place] [address] Nov, [facility] [place] [facility] [address] [id number] [place] [address] Nov, [facility] [place] [facility] [address] [id number] [place] [address] Nov, [facility] [place] [facility] [address] [id number] [place] [address] Nov, [facility] [address] [id number] [place] [address] Nov, [facility] [place] [facility] [address] [id number] [place] [address] Nov, [facility] [address] [id number] [place] [address] Nov, [facility] [address] [id number] [place] [address] Nov, [facility] [address] [id number] [place] [address] Nov, [facility] [address] [id number] [place] [address] Nov, [facility] [address] [id number] [place] [address] Oct, [facility] [address] [id number] [place] [address] 30 Oct, 2013 [facility] [address] [id number] [place] [address] Oct, [facility] [address] [id number] [place] [address] Oct, [facility] [place] [facility] [address] [id number] [place] [address] Oct, [facility] [address] [id number] [place] [address] Oct, [facility] [place] [facility] [address] [id number] [place] [address] Oct, [facility] [place] [facility] [address] [id number] [place] [address] Oct, [facility] [place] [facility] [address] [id number] [place] [address] Oct, [facility] [address] [id number] [place] [address] Oct, [facility] [place] [facility] [address] [id number] [place] [address] Oct, [facility] [place] [facility] [address] [id number] [place] [address] Oct, [facility] [place] [facility] [address] [id number] [place] [address] Oct, [facility] [place] [facility] [address] [id number] [place] [address] Oct, [facility] [place] [facility] [address] [id number] [place] [address] Sep, [facility] [place] [facility] [address] [id number] [place] [address] Sep, [facility] [place] [facility] [address] [id number] [place] [address] Sep, [facility] [place] [facility] [address] [id number] [place] [address] Sep, [facility] [place] [facility] [address] [id number] [place] [address] Sep, [facility] [place] [facility] [address] [id number] [place] [address] Sep, [facility] [place] [facility] [address] [id number] [place] [address] Sep, [facility] [place] [facility] [address] [id number] [place] [address] Sep, [facility] [place] [facility] [address] [id number] [address] Sep, [facility] [place] [facility] [address] [id number] [place] [address] Sep, [facility] [place] [facility] [address] [id number] [place] [address] 24 Aug, 2012 [facility] [place] [facility] [address] [id number] [place] [address] 24 Aug, 2012 [facility] [place] [facility] [address] [id number] [place] [address] 24 Aug, 2012 [facility] [place] [facility] [address] [id number] [place] [address] 24 Aug, 2012 [facility] [place] [facility] [address] [id number] [place] [address] 23 Aug, 2012 [facility] [place] [facility] [address] [id number] [place] [address] 23 Aug, 2012 [facility] [place] [facility] [address] [id number] [place] [address] 23 Aug, 2012 [facility] [place] [facility] [address] [id number] [place] [address] 23 Aug, 2012 [facility] [place] [facility] [address] [id number] [place] [address] 22 Aug, 2012 [facility] [place] [facility] [address] [id number] [place] [address] 22 Aug, 2012 [facility] [place] [facility] [address] [id number] [place] [address] 18 Aug, 2012 [facility] [place] [facility] [address] [id number] [place] [address] 18 Aug, 2012 [facility] [place] [facility] [address] [id number] [place] [address] 18 Aug, 2012 [facility] [place] [facility] [address] [id number] [place] [address] 18 Aug, 2012 [facility] [place] [facility] [address] [id number] [place] [address] 17 Aug, 2012 [facility] [place] [facility] [address] [id number] [place] [address] 14 Aug2012 [facility] [place] [facility] [address] [id number] [place] [address] 14 Aug, 2013 [facility] [place] [facility] [address] [id number] [place] [address] Aug, [facility] [place] [facility] [address] [id number] [place] [address] 20 Jul, 2013 [facility] [place] [facility] [address] [id number] [place] [address] 19 Jul, 2013 [facility] [place] [facility] [address] [id number] [place] [address] 18 Jul, 2013 [facility] [place] [facility] [address] [id number] [place] [address] 11 Jul, 2013 [facility] [place] [facility] [address] [id number] [place] [address] Jul, [facility] [place] [facility] [address] [id number] [place] [address] Jun, [facility] [place] [facility] [address] [id number] [place] [address] Jun, [facility] [place] [facility] [address] [id number] [place] [address] Jun, [facility] [place] [facility] [address] [id number] [place] [address] 15 Jun, 2013 [facility] [place] [facility] [address] [id number] [place] [address] 14 Jun, 2013 [facility] [place] [facility] [address] [id number] [place] [address] Jun, [facility] [place] [facility] [address] [id number] [place] [address] Jun, [facility] [place] [facility] [address] [id number] [place] [address] 08 Jun, 2013 [facility] [place] [facility] [address] [id number] [place] [address] Jun, [facility] [place] [facility] [address] [id number] [place] [address] Jun, [facility] [place] [facility] [address] [id number] [place] [address] May, [facility] [place] [facility] [address] [id number] [place] [address] May, [facility] [place] [facility] [address] [id number] [place] [address] May, [facility] [place] [facility] [address] [id number] [place] [address] May, [facility] [place] [facility] [address] [id number] [place] [address] May, [facility] [place] [facility] [address] [id number] [place] [address] May, [facility] [place] [facility] [address] [id number] [place] [address] May, [facility] [place] [facility] [address] [id number] [place] [address] May, [facility] [place] [facility] [address] [id number] [place] [address] May, [facility] [place] [facility] [address] [id number] [place] [address] Apr, [facility] [place] [facility] [address] [id number] [place] [address] Apr, [facility] [place] [facility] [address] [id number] [place] [address] Apr, [facility] [place] [facility] [address] [id number] [place] [address] Apr, [facility] [place] [facility] [address] [id number] [place] [address] Apr, [facility] [place] [facility] [address] [id number] [place] [address] Apr, [facility] [address] [id number] [place] [address] Apr, [facility] [address] [id number] [place] [address] March, [facility] [address] [id number] [place] [address] Feb, [facility] [address] [id number] [place] [address] Feb, [facility] [address] [id number] [place] [address] Feb, [facility] [address] [id number] [place] [address] Jan, [facility] [address] [id number] [place] [address] Jan, [facility] [address] [id number] [place] [address] Jan, [facility] [address] [id number] [place] [address] Jan, [facility] [address] [id number] [place] [address] Jan, [facility] [address] [id number] [place] [address] Jan, [facility] [address] [id number] [place] [address] Jan, [facility] [address] [id number] [place] [address] Jan, [facility] [address] [id number] [place] [address] Dec, [facility] [address] [id number] [place] [address] Dec, [facility] [address] [id number] [place] [address] 13 Dec, 2012 [facility] [place] [facility] [address] [id number] [place] [address] Dec, [facility] [place] [facility] [address] [id number] [place] [address] 07 Dec, 2012 [facility] [place] [facility] [address] [id number] [place] [address] 06 Dec, 2012 [facility] [place] [facility] [address] [id number] [place] [address] Dec, [facility] [place] [facility] [address] [id number] [place] [address] Nov, [facility] [place] [facility] [address] [id number] [place] [address] Nov, [facility] [place] [facility] [address] [id number] [place] [address] Nov, [facility] [place] [facility] [address] [id number] [place] [address] Nov, [facility] [place] [facility] [address] [id number] [place] [address] Nov, [facility] [place] [facility] [address] [id number] [place] [address] Nov, [facility] [place] [facility] [address] [id number] [place] [address] Nov, [facility] [place] [facility] [address] [id number] [place] [address] Oct, [facility] [place] [facility] [address] [id number] [place] [address] Oct, [facility] [place] [facility] [address] [id number] [place] [address] Oct, [facility] [place] [facility] [address] [id number] [place] [address] Oct, [facility] [place] [facility] [address] [id number] [place] [address] Oct, [facility] [place] [facility] [address] [id number] [place] [address] Oct, [facility] [place] [facility] [address] [id number] [place] [address] Oct, [facility] [place] [facility] [address] [id number] [place] [address] Oct, [facility] [place] [facility] [address] [id number] [place] [address] Oct, [facility] [place] [facility] [address] [id number] [place] [address] Oct, [facility] [place] [facility] [address] [id number] [place] [address] Oct, [facility] [place] [facility] [address] [id number] [place] [address] Oct, [facility] [place] [facility] [address] [id number] [place] [address] Sep, [facility] [place] [facility] [address] [facility] [id number] [place] [address] Sep, [facility] [place] [facility] [address] [id number] [place] [address] Sep, [facility] [place] [facility] [address] [id number] [place] [address] Sep, [facility] [place] [facility] [address] [id number] [place] [place] [address] Sep, [facility] [place] [facility] [address] [id number] [place] [address] Sep, [facility] [place] [facility] [address] [id number] [place] [address] Sep, [facility] [place] [facility] [address] [id number] [place] [address] Sep, [facility] [place] [facility] [address] [id number] [place] [address] Sep, [facility] [place] [facility] [address] [id number] [place] [address] Sep, [facility] [place] [facility] [address] [id number] [place] [address] Sep, [facility] [place] [facility] [address] [id number] [place] [address] Aug, [facility] [place] [facility] [address] [id number] [place] [address] Aug, [facility] [place] [facility] [address] [id number] [place] [address] Aug, [facility] [place] [facility] [address] [id number] [place] [address] Aug, [facility] [place] [facility] [address] [id number] [place] [address] Aug, [facility] [place] [facility] [address] [id number] [place] [address] Aug, [facility] [place] [facility] [address] [facility] [id number] [place] [address] Aug, [facility] [place] [facility] [address] [id number] [place] [address] Aug, [facility] [place] [facility] [address] [id number] [place] [address] Aug, [facility] [place] [facility] [address] [id number] [place] [address] Aug, [facility] [place] [facility] [address] [id number] [place] [address] Jul, [facility] [place] [facility] [address] [id number] [place] [address] Jul, [facility] [place] [facility] [address] [id number] [place] [address] Jul, [facility] [place] [facility] [address] [id number] [place] [address] Jul, [facility] [place] [facility] [address] [id number] [place] [address] Jun, [facility] [place] [facility] [address] [id number] [place] [address] Jun, [facility] [place] [facility] [address] [id number] [place] [address] Jun, [facility] [place] [facility] [address] [id number] [place] [address] Jun, [facility] [place] [facility] [address] [id number] [place] [address] Jun, [facility] [place] [facility] [address] [id number] [place] [address] Jun, [facility] [place] [facility] [address] [id number] [place] [address] Jun, [facility] [place] [facility] [address] [id number] [place] [address] May, [facility] [place] [facility] [address] [id number] [place] [address] May, [facility] [place] [facility] [address] [id number] [place] [address] May, [facility] [place] [facility] [address] [id number] [place] [address] May, [facility] [place] [facility] [address] [id number] [place] [address] May, [facility] [place] [facility] [address] [id number] [place] [address] Apr, [facility] [place] [facility] [address] [id number] [place] [address] 18 Apr, 2012 [facility] [address] [id number] [place] [address] Apr, [facility] [address] [id number] [place] [address] Apr, [facility] [address] [id number] [place] [address] Apr, [facility] [address] [id number] [place] [address] March, [facility] [address] [id number] [place] [address] March, [facility] [address] [id number] [place] [address] March, [facility] [address] [id number] [place] [address] March, [facility] [address] [id number] [place] [address] March, [facility] [address] [id number] [place] [address] March, [facility] [address] [id number] [place] [address] March, [facility] [address] [id number] [place] [address] March, [facility] [address] [id number] [place] [address] March, [facility] [place] [facility] [address] [id number] [place] [address] March, [facility] [address] [id number] [place] [address] Feb, [facility] [address] [id number] [place] [address] Feb, [facility] [address] [id number] [place] [address] Feb, [facility] [place] [facility] [address] [id number] [place] [address] Feb, [facility] [place] [facility] [address] [id number] [place] [address] Feb, [facility] [place] [facility] [address] [id number] [place] [address] Feb, [facility] [place] [facility] [address] [id number] [place] [address] Feb, [facility] [place] [facility] [address] [id number] [place] [address] Feb, [facility] [place] [facility] [address] [id number] [place] [address] Feb, [facility] [place] [facility] [address] [id number] [place] [address] Jan, [facility] [place] [facility] [address] [id number] [place] [address] Jan, [facility] [place] [facility] [address] [id number] [place] [address] Jan, [facility] [place] [facility] [address] [id number] [place] [address] Jan, [facility] [place] [facility] [address] [id number] [place] [address] Dec, [facility] [place] [facility] [address] [id number] [place] [address] Dec, [facility] [place] [facility] [address] [id number] [place] [address] Nov, [facility] [place] [facility] [address] [id number] [place] [address] Nov, [facility] [place] [facility] [address] [id number] [address] Nov, [facility] [id number] [address] Nov, [facility] [id number] [address] Nov, [facility] [id number] [address] Oct, [facility] [id number] [address] Oct, [facility] [id number] [place] [address] Oct, [facility] [id number] [address] Oct, [facility] [id number] [address] Oct, [facility] [id number] [address] Oct, [facility] [id number] [address] Oct, [facility] [address] [id number] [address] Oct, [facility] [address] [id number] [address] Sep, IMMUNIZATIONS No Known Immunizations SOCIAL HISTORY Never Assessed REASON FOR VISIT [facility] PLAN OF CARE VITAL SIGNS MEDICATIONS Unknown Medications RESULTS No Results PROCEDURES No Known procedures INSTRUCTIONS MEDICATIONS ADMINISTERED No Known Medications MEDICAL (GENERAL) HISTORY Type Description Date 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
--- OUTSIDE RECORDS SUMMARY | 2019-04-16 15:25 | XMS REPORT ---
Author Author Migration, Doctor Organization [facility] Address Unknown Phone Unavailable Care Team Providers Care Air Support Operations Operator Name Role Phone Migration, Doctor Unavailable Unavailable PROBLEMS Type Condition ICD9-CM Code [id number] Code Onset Dates Condition Status SNOMED Code Problem Coronary artery disease I25.10 Active 72850348 Problem Hypertension I10 Active 32283245 Problem Other chronic pain G89.29 Active 54756587 Problem Hyperlipidemia E78.5 Active 03175397 Problem Type 2 diabetes mellitus without complication, without long-term current use of insulin E11.9 Active 605225408 Problem Low back pain M54.5 Active 007861770 Problem Pharyngeal dysphagia R13.13 Active 49136022332940 Problem Anxiety F41.9 Active 57170466 Problem Peripheral vascular disease I73.9 Active 274574159 Problem Suprapubic catheter Z93.59 Active 743820232 Problem Reactive depression F32.9 Active 43968014 Problem Neurogenic bladder N31.9 Active 239053128 Problem Ventral hernia without obstruction or gangrene K43.9 Active 416675455 Problem Insomnia G47.00 Active 413183710 Problem Paroxysmal atrial fibrillation I48.0 Active 957783698 Problem 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 Active 21878519 Problem Encounter for suprapubic catheter care Z43.5 Active 991395437 ALLERGIES No Information ENCOUNTERS Encounter Location Date Diagnosis Via [facility] [address] [place] [id number] Jun, Via [facility] [address] [facility] [place] [id number] March, [facility] [address] [id number], [place] [address] Feb, Other chronic pain G89.29 [facility] [address] [id number], [place] [address] Feb, Anxiety F41.9 [facility] [address] [id number], [place] [address] Feb, Other chronic pain G89.29 Via [facility] [employer] [address] [place] [id number] Feb, Neurogenic bladder N31.9 and Suprapubic catheter Z93.59 [facility] [address] [id number], [place] [address] Jan, Anxiety F41.9 [facility] [id number] [place] [address] Dec, Anxiety F41.9 [facility] [address] [id number] [place] [address] Dec, Other chronic pain G89.29 and Anxiety F41.9 [facility] [address] [facility] [id number] [place] [address] Dec, Via [employer] [address] [place] [id number] Dec, Neurogenic bladder N31.9 and Suprapubic catheter Z93.59 [facility] [address] [facility] [id number] [place] [address] Nov, Other chronic pain G89.29 and Anxiety F41.9 [facility] [address] [facility] [id number] [place] [address] Nov, Via [employer] [address] [place] [id number] Nov, Suprapubic catheter Z93.59 [facility] [address] [facility] [id number] [place] [address] Oct, Other chronic pain G89.29 and Anxiety F41.9 [facility] [address] [facility] [id number] [place] [address] Oct, [facility] [address] [facility] [id number] [place] [address] Oct, Suprapubic catheter Z93.59 [facility] [address] [facility] [id number] [place] [address] Oct, Via [employer] [address] [place] [id number] Oct, [facility] [address] [id number], [place] [address] Oct, Anxiety F41.9 [facility] [address] [id number] [place] [address] Oct, Anxiety F41.9 Via [employer] [address] [place] [id number] Oct, Other chronic pain G89.29 [facility] [address] [id number] [place] [address] Sep, Other chronic pain G89.29 Via [employer] [address] [place] [address] Sep, Suprapubic catheter Z93.59 and Cervicalgia M54.2 [facility] [address] [id number], [place] [address] Sep, [facility] [address] [id number], [place] [address] Sep, [facility] [address] [facility] [id number], [place] [address] Sep, Via [employer] [address] [place] [id number] Aug, Cystitis N30.90 [facility] [address] [id number], [place] [address] Aug, [facility] [address] [id number], [place] [address] Aug, Other chronic pain G89.29 [facility] [address] [id number], [place] [address] Aug, Via [employer] [address] [place] [address] Aug, Encounter for suprapubic catheter care Z43.5 [facility] [address]005[address], [place] [address] 20 Jul, 2018 Via [employer] [address] [place] [id number] Jul, [facility] [address], [place] [address] Jul, Other chronic pain G89.29 [facility] [address]00565[address], [place] [address] Jul, [facility] [address]005[address]100[place], [place] [address] Jul, Via [employer] [address] [place] [id number] Jun, 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 [id number] [place] [address] Jun, Other chronic pain G89.29 [address] [place] [id number] [place] [address] Jun, Via [employer] [address] [place] [id number] May, Anxiety F41.9 ; Type 2 diabetes mellitus without complication, without long-term current use of insulin E11.9 ; Hypertension I10 ; Low back pain M54.5 ; Paroxysmal atrial fibrillation I48.0 and 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 [address], [place] [address] May, Other chronic pain G89.29 [facility] [employer] [address] [place] [id number] May, Low back pain M54.5 [address] [place], [place] [address] May, [address] [place] [address], [place] [address] Apr, Other chronic pain G89.29 [address] [place] [address], [place] [address] Apr, [facility] [address] [id number], [place] [address] Apr, Via [facility] [employer] [address] [place] [id number] 19 Apr, 2018 Closed compression fracture of L3 lumbar vertebra with routine healing, subsequent encounter S32.030D [facility] [address] [place] [id number] 14 Apr, 2018 Low back pain M54.5 [facility] [employer] [address] [place] [id number] 12 Apr, 2018 Coccydynia M53.3 [facility] [address] [id number] [place] [address] March, [facility] [address] [id number] [place] [address] March, Other chronic pain G89.29 [facility] [address] [id number] [place] [address] March, [facility] [address] [id number], [place] [address] March, [facility] [address] [id number] [place] [address] Feb, [facility] [address] [facility] [id number], [place] [address] Feb, Other chronic pain G89.29 Via [facility] [employer] [address] [place] [id number] Feb, Other chronic pain G89.29 and Anxiety F41.9 [facility] [address] [id number], [place] [address] Feb, [facility] [address] [facility] [id number] [place] [address] Jan, [facility] [address] [facility] [id number], [place] [address] Jan, [facility] [address] [facility] [id number], [place] [address] Jan, [facility] [address] [facility] [id number], [place] [address] Jan, [facility] [address] [id number], [place] [address] Dec, Via [employer] [address] [place] [address] Dec, Peripheral vascular disease I73.9 ; 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 ; Other chronic pain G89.29 ; Anxiety F41.9 ; Reactive depression F32.9 ; Insomnia G47.00 and Type 2 diabetes mellitus without complication, without long-term current use of insulin E11.9 [address] [id number] [place] [address] Nov, [facility] [address] [id number] [address] Nov, Anxiety F41.9 [facility] [address] [facility] [id number], [place] [address] Nov, [facility] [address] [id number] [address] Nov, Anxiety F41.9 Via [employer] [address] [facility] [place] [id number] Nov, Status post surgery Z98.890 ; Confused R41.0 ; Anxiety F41.9 and Other chronic pain G89.29 [facility] [address] [id number] [address] Nov, Other chronic pain G89.29 [facility] [address] [facility] [id number], [place] [address] Oct, [facility] [id number] [place] [id number] Oct, Other chronic pain G89.29 [facility] [address] [facility] [id number], [place] [address] Oct, Anxiety F41.9 [facility] [id number], [place] [address] Sep, Other chronic pain G89.29 [facility] [id number] [place] [id number] Sep, Via [employer] [address] [place] [id number] Aug, Dysuria R30.0 and Anxiety F41.9 [facility] [id number] [place] [address] Aug, [facility] [id number] [place] [id number] Aug, Other chronic pain G89.29 [facility] [id number] [place] [address] Jul, Other chronic pain G89.29 [facility] [id number] [place] [id number] Jun, [facility] [id number] [place] [id number] Jun, Other chronic pain G89.29 [facility] [id number] [place] [address] Jun, [facility] [address]65[address], [place] [address] May, Other chronic pain G89.29 [facility] [address] [place] [address] Apr, Other chronic pain G89.29 Via [employer] [address] [place] [id number] Apr, Reactive depression F32.9 and Pharyngeal dysphagia R13.13 [facility] [address] [id number], [place] [address] Apr, Urinary tract infection without hematuria, site unspecified N39.0 [facility] [id number] [place] [address] March, Other chronic pain G89.29 [facility] [address], [place] [address] Feb, Other chronic pain G89.29 [facility] [address], [place] [address] Feb, [facility] [id number] [place] [id number] Feb, Via [employer] [address] [place] [id number] Feb, Dysuria R30.0 and Ventral hernia without obstruction or gangrene K43.9 [facility] [id number] [place] [address] Jan, Other chronic pain G89.29 [facility] [id number] [place] [id number] Dec, Other chronic pain G89.29 [facility] [id number] [place] [address] Nov, Other chronic pain G89.29 Via [employer] [address] [place] [address] Nov, Lymphadenitis I88.9 [facility] [address] [place] [address] Nov, Other chronic pain G89.29 [facility] [address], [place] [address] Nov, [facility] [id number] [place] [id number] Nov, Other chronic pain G89.29 [facility] [employer] [address] [place] [id number] Oct, Low back pain M54.5 ; Hypertension I10 and Type 2 diabetes mellitus without complication, without long-term current use of insulin E11.9 [facility] [address] [place] [address] Oct, [facility] [address] [facility] [id number], [place] [address] Oct, [facility] [address] [facility] [id number], [place] [address] Oct, [facility] [address] [facility] [id number], [place] [address] Oct, [facility] [address] [facility] [id number], [place] [address] Sep, [facility] [address] [facility] [id number], [place] [address] Sep, [facility] [address] [facility] [id number], [place] [address] Aug, Other chronic pain G89.29 [facility] [address] [facility] [id number], [place] [address] Jul, [facility] [address], [place] [address] Jul, [facility] [address]00565100[place], [place] [address] Jul, [facility] [address], [place] [address] Jun, [facility] [address] [id number], [place] [address] Jun, Via [facility] [place] [address] [place] [id number] Jun, Low back pain M54.5 ; Other chronic pain G89.29 and Coronary artery disease I25.10 [facility] [address] [facility] [id number], [place] [address] Jun, [facility] [address] [facility] [id number], [place] [address] May, [facility] [address] [id number], [place] [address] May, [facility] [address]100[place], [place] [address] May, Other chronic pain G89.29 [facility] [address]00565100[place], [place] [address] May, [facility] [address]65100[place], [place] [address] 28 Apr, 2016 [facility] [address] [place] [address] 17 Apr, 2016 Acute cystitis without hematuria N30.00 [facility] [id number] [place] [address] 16 Apr, 2016 Acute cystitis without hematuria N30.00 ; Coronary artery disease I25.10 ; Low back pain M54.5 and Other chronic pain G89.29 [facility] [address]65100[place], [place] [address] Apr, Other chronic pain G89.29 [facility] [address]100[place], [place] [address] March, Other chronic pain G89.29 [facility] [address]100[place], [place] [address] 18 Feb, 2016 [facility] [address]100[place], [place] [address] 15 Feb, 2016 Arthritis M19.90 [facility] [address]65100[place], [place] [address] Feb, [facility] [address]100[place], [place] [address] 30 Jan, 2016 [facility] [address]65100[place], [place] [address] Jan, [facility] [address]100[place], [place] [address] Jan, Other chronic pain G89.29 [facility] [address]100[place], [place] [address] Jan, Hypertension I10 ; Coronary artery disease I25.10 and Insomnia G47.00 [facility] [address]100[place], [place] [address] Jan, [facility] [id number] [place] [address] Dec, Right hip pain M25.551 [facility] [id number] [place] [address] Dec, [facility] [id number] [place] [address] Dec, [facility] [id number] [place] [address] Dec, [facility] [id number] [place] [address] Dec, Other chronic pain G89.29 [facility] [address] [place] [address] Dec, [facility] [address] [place] [address] Nov, [facility] [address]65100[place], [place] [address] Nov, Other chronic pain G89.29 [facility] [address] [place] [address] Nov, Right hip pain M25.551 and Coronary artery disease I25.10 [facility] [address] [place] [address] Nov, Other chronic pain G89.29 [facility] [address], [place] [address] Oct, [facility] [id number] [place] [address] Oct, [facility] [address]65100[place], [place] [address] Sep, [facility] [address] [place] [address] Sep, [facility] [id number] [place] [address] Aug, [facility] [id number] [place] [address] Aug, Hypertension I10 ; Coronary artery disease I25.10 and Arthritis M19.90 [facility] [id number] [place] [address] Jun, [facility] [id number] [place] [address] Jun, Essential hypertension, benign 401.1 ; Other chronic pain 338.29 and Chronic airway obstruction, not elsewhere classified 496 [facility] [address], [place] [address] Jun, [facility] [id number] [place] [address] Jun, [facility] [address], [place] [address] Jun, [facility] [address]100[place], [place] [address] May, [facility] [address]100[place], [place] [address] May, [facility] [address] [place] [address] Apr, [facility] [address], [place] [address] 16 Apr, 2015 [facility] [address]65100[place], [place] [address] Apr, [facility] [address] [id number] [place] [address] March, [facility] [address] [id number] [place] [address] March, [facility] [address] [id number] [place] [address] March, [facility] [address] [id number] [place] [address] March, [facility] [address] [id number] [place] [address] March, Sialadenitis 527.2 [facility] [address] [id number] [place] [address] Feb, [facility] [address] [id number] [place] [address] Feb, [facility] [address] [id number] [place] [address] Feb, [facility] [address] [id number] [place] [address] Feb, [facility] [address] [facility] [id number] [place] [address] Feb, [facility] [address] [id number], [place] [address] Jan, [facility] [address] [id number], [place] [address] Jan, [facility] [address] [id number] [place] [address] Jan, [facility] [address] [id number] [place] [address] Jan, [facility] [address] [facility] [id number] [place] [address] Jan, [facility] [address] [id number] [place] [address] Jan, [facility] [place] [facility] [address] [id number] [place] [address] Dec, 2014 [facility] [place] [facility] [address] [id number] [place] [address] Dec, 2014 [facility] [place] [facility] [address] [id number] [place] [address] Dec, 2014 [facility] [place] [facility] [address] [id number] [place] [address] Dec, 2014 [facility] [place] [facility] [address] [id number] [place] [address] Dec, 2014 [facility] [place] [facility] [address] [id number] [place] [address] Dec, 2014 [facility] [place] [facility] [address] [id number] [place] [address] Nov, [facility] [place] [facility] [address] [id number] [place] [address] Nov, [facility] [place] [facility] [address] [id number] [place] [address] Nov, [facility] [place] [facility] [address] [id number] [place] [address] Nov, [facility] [place] [facility] [address] [id number] [place] [address] Nov, [facility] [place] [facility] [address] [id number] [place] [address] Nov, [facility] [place] [facility] [address] [id number] [place] [address] Nov, [facility] [place] [facility] [address] [id number] [place] [address] Nov, [facility] [place] [facility] [address] [id number] [place] [address] Nov, [facility] [place] [facility] [address] [id number] [place] [address] Nov, [facility] [place] [facility] [address] [id number] [place] [address] Nov, [facility] [place] [facility] [address] [id number] [place] [address] Nov, [facility] [place] [facility] [address] [id number] [place] [address] Nov, [facility] [place] [facility] [address] [id number] [place] [address] Nov, [facility] [place] [facility] [address] [id number] [place] [address] Oct, [facility] [place] [facility] [address] [id number] [place] [address] Oct, [facility] [place] [facility] [address] [id number] [place] [address] Oct, [facility] [place] [facility] [address] [id number] [place] [address] 18 Oct, 2014 [facility] [place] [facility] [address] [id number] [place] [address] 18 Oct, 2014 [facility] [place] [facility] [address] [id number] [place] [address] 17 Oct, 2014 [facility] [place] [facility] [address] [id number] [place] [address] 17 Oct, 2014 [facility] [place] [facility] [address] [id number] [place] [address] 10 Oct, 2014 [facility] [place] [facility] [address] [id number] [place] [address] Oct, [facility] [place] [facility] [address] [id number] [place] [address] Sep, [facility] [place] [facility] [address] [id number] [place] [address] Sep, [facility] [place] [facility] [address] [id number] [place] [address] Sep, [facility] [place] [facility] [address] [id number] [place] [address] Sep, [facility] [place] [facility] [address] [id number] [place] [address] Sep, [facility] [place] [facility] [address] [id number] [place] [address] Sep, [facility] [place] [facility] [address] [id number] [place] [address] Sep, [facility] [place] [facility] [address] [id number] [place] [address] Sep, [facility] [facility] [address] [id number] [place] [address] Sep, [facility] [place] [facility] [address] [id number] [place] [address] Sep, [facility] [place] [facility] [address] [id number] [place] [address] Sep, [facility] [place] [facility] [address] [facility] [id number] [place] [address] Sep, [facility] [place] [facility] [address] [id number] [place] [address] Aug, [facility] [place] [facility] [address] [id number][place] [address] Aug, [facility] [place] [facility] [address] [id number] [place] [address] Aug, [facility] [place] [facility] [address] [id number] [place] [address] Aug, [facility] [place] [facility] [address] [id number], [place] [address] Aug, [facility] [place] [facility] [address] [id number] [place] [address] 28 Aug, 2014 [facility] [place] [facility] [address] [id number] [place] [address] Aug, [facility] [place] [facility] [address] [id number] [place] [address] 17 Aug, 2013 [facility] [place] [facility] [address] [id number] [place] [address] 30 Jul, 2013 [facility] [place] [facility] [address] [id number] [place] [address] 30 Jul, 2013 [facility] [place] [facility] [address] [id number] [place] [address] 30 Jul, 2013 [facility] [place] [facility] [address] [id number] [place] [address] 30 Jul, 2013 [facility] [place] [facility] [address] [id number] [place] [address] 25 Jul, 2013 [facility] [place] [facility] [address] [id number] [place] [address] 25 Jul, 2013 [facility] [place] [facility] [address] [id number] [place] [address] 15 Jul, 2014 [facility] [place] [facility] [address] [id number] [place] [address] 15 Jul, 2014 [facility] [place] [facility] [address] [id number] [place] [address] 11 Jul, 2014 [facility] [place] [facility] [address] [id number] [place] [address] Jul, [facility] [place] [facility] [address] [id number] [place] [address] Jun, [facility] [place] [facility] [address] [id number] [place] [address] Jun, [facility] [place] [facility] [address] [id number] [place] [address] Jun, [facility] [place] [facility] [address] [id number] [place] [address] Jun, [facility] [place] [facility] [address] [id number] [place] [address] Jun, [facility] [place] [facility] [address] [id number] [place] [address] Jun, [facility] [place] [facility] [address] [id number] [place] [address] Jun, [facility] [place] [facility] [address] [id number] [place] [address] Jun, [facility] [place] [facility] [address] [id number] [place] [address] Jun, [facility] [place] [facility] [address] [id number] [place] [address] Jun, [facility] [place] [facility] [address] [id number] [place] [address] Jun, [facility] [place] [facility] [address] [id number] [place] [address] Jun, [facility] [place] [facility] [address] [id number] [place] [address] Jun, [facility] [place] [facility] [address] [id number] [place] [address] Jun, [facility] [place] [facility] [address] [id number] [place] [address] Jun, [facility] [place] [facility] [address] [id number] [place] [address] Jun, [facility] [place] [facility] [address] [id number] [place] [address] Jun, [facility] [place] [facility] [address] [id number] [place] [address] Jun, [facility] [place] [facility] [address] [id number] [place] [address] Jun, [facility] [place] [facility] [address] [id number] [place] [address] Jun, [facility] [place] [facility] [address] [id number] [place] [address] Jun, [facility] [place] [facility] [address] [id number] [place] [address] Jun, [facility] [place] [facility] [address] [id number] [place] [address] May, [facility] [place] [facility] [address] [id number] [place] [address] May, [facility] [place] [facility] [address] [id number] [place] [address] May, [facility] [address] [id number] [place] [address] May, [facility] [address] [id number] [place] [address] May, [facility] [place] [facility] [address] [id number] [place] [address] May, [facility] [address] [id number] [place] [address] May, [facility] [place] [facility] [address] [id number] [place] [address] May, [facility] [place] [facility] [address] [id number] [place] [address] May, [facility] [place] [facility] [address] [id number] [place] [address] May, [facility] [address] [id number] [place] [address] May, [facility] [place] [facility] [address] [id number] [place] [address] May, [facility] [place] [address] [id number] [place] [address] May, [facility] [address] [id number] [place] [address] Apr, [facility] [place] [facility] [address] [id number] [place] [address] Apr, [facility] [address] [id number] [place] [address] Apr, [facility] [address] [id number] [place] [address] Apr, [facility] [address] [id number] [place] [address] Apr, [facility] [address] [id number] [place] [address] Apr, [facility] [address] [id number] [place] [address] Apr, [facility] [address] [id number] [place] [address] Apr, [facility] [address] [id number] [place] [address] Apr, [facility] [address] [id number] [place] [address] March, [facility] [address] [id number] [place] [address] March, [facility] [address] [id number] [place] [address] March, [facility] [address] [id number] [place] [address] March, [facility] [address] [id number] [place] [address] March, [facility] [address] [id number] [place] [address] March, [facility] [address] [id number] [place] [address] March, [facility] [address] [id number] [place] [address] March, [facility] [address] [id number] [place] [address] March, [facility] [address] [id number] [place] [address] March, [facility] [address] [id number] [place] [address] March, [facility] [address] [id number] [place] [address] March, [facility] [address] [id number] [place] [address] March, [facility] [address] [id number] [place] [address] March, [facility] [address] [id number] [place] [address] March, [facility] [address] [id number] [place] [address] March, [facility] [address] [id number] [place] [address] March, [facility] [address] [id number] [place] [address] March, [facility] [address] [id number] [place] [address] March, [facility] [address] [id number] [place] [address] March, [facility] [address] [id number] [place] [address] Feb, [facility] [address] [id number] [place] [address] 29 Feb, 2014 [facility] [address] [id number] [place] [address] Feb, [facility] [address] [id number] [place] [address] Feb, [facility] [address] [id number] [place] [address] Feb, [facility] [address] [id number] [place] [address] Feb, [facility] [address] [id number] [place] [address] Feb, [facility] [address] [id number] [place] [address] Feb, [facility] [address] [id number] [place] [address] Jan, [facility] [address] [id number] [place] [address] Jan, [facility] [address] [id number] [place] [address] Jan, [facility] [address] [id number] [place] [address] 24 Jan, 2014 [facility] [address] [id number] [place] [address] Jan, [facility] [address] [id number] [place] [address] Jan, [facility] [address] [id number] [place] [address] Jan, [facility] [address] [id number] [place] [address] Jan, [facility] [address] [id number] [place] [address] Jan, [facility] [address] [id number] [place] [address] Jan, [facility] [address] [id number] [place] [address] Dec, [facility] [address] [id number] [place] [address] Dec, [facility] [address] [id number] [place] [address] Dec, [facility] [address] [id number] [place] [address] Dec, [facility] [address] [id number] [place] [address] Dec, [facility] [address] [id number] [place] [address] Dec, [facility] [address] [id number] [place] [address] Dec, [facility] [address] [id number] [place] [address] Dec, [facility] [address] [id number] [place] [address] Nov, [facility] [address] [id number] [place] [address] Nov, [facility] [address] [id number] [place] [address] Nov, [facility] [place] [facility] [address] [id number] [place] [address] Nov, [facility] [address] [id number] [place] [address] Nov, [facility] [address] [id number] [place] [address] Nov, [facility] [address] [id number] [place] [address] Nov, [facility] [address] [id number] [place] [address] Nov, [facility] [address] [id number] [place] [address] Nov, [facility] [address] [id number] [place] [address] Nov, [facility] [address] [id number] [place] [address] Nov, [facility] [address] [id number] [place] [address] Nov, [facility] [address] [id number] [place] [address] Nov, [facility] [address] [id number] [place] [address] Oct, [facility] [address] [id number] [place] [address] 30 Oct, 2013 [facility] [address] [id number] [place] [address] Oct, [facility] [address] [id number] [place] [address] Oct, [facility] [address] [id number] [place] [address] Oct, [facility] [address] [id number] [place] [address] Oct, [facility] [address] [id number] [place] [address] Oct, [facility] [address] [id number] [place] [address] Oct, [facility] [address] [id number] [place] [address] Oct, [facility] [address] [id number] [place] [address] Oct, [facility] [place] [facility] [address] [id number] [place] [address] Oct, [facility] [place] [facility] [address] [id number] [place] [address] Oct, [facility] [place] [facility] [address] [id number] [place] [address] Oct, [facility] [place] [facility] [address] [id number] [place] [address] Oct, [facility] [place] [facility] [address] [id number] [place] [address] Sep, [facility] [place] [facility] [address] [id number] [place] [address] Sep, [facility] [place] [facility] [address] [id number], [place] [address] Sep, [facility] [place] [facility] [address] [id number] [place] [address] Sep, [facility] [place] [facility] [address] [id number], [place] [address] Sep, [facility] [place] [facility] [address] [id number], [place] [address] Sep, [facility] [place] [facility] [address] [id number], [place] [address] Sep, [facility] [place] [facility] [address] [id number], [place] [address] Sep, [facility] [place] [facility] [address] [id number], [place] [address] Sep, [facility] [place] [facility] [address] [id number], [place] [address] Sep, [facility] [place] [facility] [address] [id number] [place] [address] 24 Aug, 2012 [facility] [place] [facility] [address] [id number] [place] [address] 24 Aug, 2012 [facility] [place] [facility] [address] [id number] [place] [address] 24 Aug, 2012 [facility] [place] [facility] [address] [id number] [place] [address] 24 Aug, 2012 [facility] [place] [facility] [address] [id number] [place] [address] 23 Aug, 2012 [facility] [place] [facility] [address] [id number] [place] [address] 23 Aug, 2012 [facility] [place] [facility] [address] [id number] [place] [address] 23 Aug, 2012 [facility] [place] [facility] [address] [id number] [place] [address] 23 Aug, 2012 [facility] [place] [facility] [address] [id number] [place] [address] 22 Aug, 2012 [facility] [place] [facility] [address] [id number] [place] [address] 22 Aug, 2012 [facility] [place] [facility] [address] [id number] [place] [address] 18 Aug, 2012 [facility] [place] [facility] [address] [id number] [place] [address] 18 Aug, 2012 [facility] [place] [facility] [address] [id number], [place] [address] 18 Aug, 2012 [facility] [place] [facility] [address] [id number] [place] [address] 18 Aug, 2012 [facility] [place] [facility] [address] [id number] [place] [address] 17 Aug, 2012 [facility] [place] [facility] [address] [id number], [place] [address] 14 Aug2012 [facility] [place] [facility] [address] [id number] [place] [address] 14 Aug, 2013 [facility] [place] [facility] [address] [id number] [place] [address] Aug, [facility] [place] [facility] [address] [id number] [place] [address] 20 Jul, 2013 [facility] [place] [facility] [address] [id number] [place] [address] 19 Jul, 2013 [facility] [place] [facility] [address] [id number] [place] [address] 18 Jul, 2013 [facility] [place] [facility] [address] [id number] [place] [address] 11 Jul, 2013 [facility] [place] [facility] [address] [id number] [place] [address] Jul, [facility] [place] [facility] [address] [id number] [place] [address] Jun, [facility] [place] [facility] [address] [id number] [place] [address] Jun, [facility] [place] [facility] [address] [id number] [place] [address] Jun, [facility] [place] [facility] [address] [id number] [place] [address] 15 Jun, 2013 [facility] [place] [facility] [address] [id number] [place] [address] 14 Jun, 2013 [facility] [place] [facility] [address] [id number] [place] [address] Jun, [facility] [place] [facility] [address] [id number] [place] [address] Jun, [facility] [place] [facility] [address] [id number] [place] [address] 08 Jun, 2013 [facility] [place] [facility] [address] [id number] [place] [address] Jun, [facility] [place] [facility] [address] [id number] [place] [address] Jun, [facility] [place] [facility] [address] [id number] [place] [address] May, [facility] [place] [facility] [address] [id number] [place] [address] May, [facility] [place] [facility] [address] [id number] [place] [address] May, [facility] [place] [facility] [address] [id number] [place] [address] May, [facility] [place] [facility] [address] [id number] [place] [address] May, [facility] [place] [facility] [address] [id number] [place] [address] May, [facility] [place] [facility] [address] [id number] [place] [address] May, [facility] [place] [facility] [address] [id number] [place] [address] May, [facility] [place] [facility] [address] [id number] [place] [address] May, [facility] [place] [facility] [address] [id number] [place] [address] Apr, [facility] [place] [facility] [address] [id number] [place] [address] Apr, [facility] [place] [facility] [address] [id number] [place] [address] Apr, [facility] [place] [facility] [address] [id number] [place] [address] Apr, [facility] [place] [facility] [address] [id number] [place] [address] Apr, [facility] [place] [facility] [address] [id number] [place] [address] Apr, [facility] [address] [id number] [place] [address] Apr, [facility] [address] [id number] [place] [address] March, [facility] [address] [id number] [place] [address] Feb, [facility] [address] [id number] [place] [address] Feb, [facility] [address] [id number] [place] [address] Feb, [facility] [address] [id number] [place] [address] Jan, [facility] [address] [id number] [place] [address] Jan, [facility] [address] [id number] [place] [address] Jan, [facility] [address] [id number] [place] [address] Jan, [facility] [address] [id number] [place] [address] Jan, [facility] [address] [id number] [place] [address] Jan, [facility] [address] [id number] [place] [address] Jan, [facility] [address] [id number] [place] [address] Jan, [facility] [address] [id number] [place] [address] Dec, [facility] [address] [id number] [place] [address] Dec, [facility] [address] [id number] [place] [address] 13 Dec, 2012 [facility] [place] [facility] [address] [id number] [place] [address] Dec, [facility] [place] [facility] [address] [id number] [place] [address] 07 Dec, 2012 [facility] [place] [facility] [address] [id number] [place] [address] 06 Dec, 2012 [facility] [place] [facility] [address] [id number] [place] [address] Dec, [facility] [place] [facility] [address] [id number] [place] [address] Nov, [facility] [place] [facility] [address] [id number] [place] [address] Nov, [facility] [place] [facility] [address] [id number] [place] [address] Nov, [facility] [place] [facility] [address] [id number] [place] [address] Nov, [facility] [place] [facility] [address] [id number] [place] [address] Nov, [facility] [place] [facility] [address] [id number] [place] [address] Nov, [facility] [place] [facility] [address] [id number] [place] [address] Nov, [facility] [place] [facility] [address] [id number] [place] [address] Oct, [facility] [place] [facility] [address] [id number] [place] [address] Oct, [facility] [place] [facility] [address] [id number] [place] [address] Oct, [facility] [place] [facility] [address] [id number] [place] [address] Oct, [facility] [place] [facility] [address] [id number] [place] [address] Oct, [facility] [place] [facility] [address] [id number] [place] [address] Oct, [facility] [place] [facility] [address] [id number] [place] [address] Oct, [facility] [place] [facility] [address] [id number] [place] [address] Oct, [facility] [place] [facility] [address] [id number] [place] [address] Oct, [facility] [place] [facility] [address] [id number] [place] [address] Oct, [facility] [place] [facility] [address] [id number] [place] [address] Oct, [facility] [place] [facility] [address] [id number] [place] [address] Oct, [facility] [place] [facility] [address] [id number] [place] [address] Sep, [facility] [place] [facility] [address] [facility] [id number] [place] [address] Sep, [facility] [place] [facility] [address] [id number] [place] [address] Sep, [facility] [place] [facility] [address] [id number] [place] [address] Sep, [facility] [place] [facility] [address] [id number] [place] [address] Sep, [facility] [place] [facility] [address] [id number] [place] [address] Sep, [facility] [place] [facility] [address] [id number] [place] [address] Sep, [facility] [place] [facility] [address] [id number] [place] [address] Sep, [facility] [place] [facility] [address] [id number] [place] [address] Sep, [facility] [place] [facility] [address] [id number] [place] [address] Sep, [facility] [place] [facility] [address] [id number] [place] [address] Sep, [facility] [place] [facility] [address] [id number] [place] [address] Aug, [facility] [place] [facility] [address] [id number] [place] [address] Aug, [facility] [place] [facility] [address] [id number] [place] [address] Aug, [facility] [place] [facility] [address] [id number] [place] [address] Aug, [facility] [place] [facility] [address] [id number] [place] [address] Aug, [facility] [place] [facility] [address] [id number] [place] [address] Aug, [facility] [place] [facility] [address] [facility] [id number] [place] [address] Aug, [facility] [place] [facility] [address] [id number], [place] [address] Aug, [facility] [place] [facility] [address] [id number] [place] [address] Aug, [facility] [place] [facility] [address] [id number] [place] [address] Aug, [facility] [place] [facility] [address] [id number], [place] [address] Jul, [facility] [place] [facility] [address] [id number], [place] [address] Jul, [facility] [place] [facility] [address] [id number] [place] [address] Jul, [facility] [place] [facility] [address] [id number] [place] [address] Jul, [facility] [place] [facility] [address] [id number] [place] [address] Jun, [facility] [place] [facility] [address] [id number] [place] [address] Jun, [facility] [place] [facility] [address] [id number] [place] [address] Jun, [facility] [place] [facility] [address] [id number] [place] [address] Jun, [facility] [place] [facility] [address] [id number] [place] [address] Jun, [facility] [place] [facility] [address] [id number] [place] [address] Jun, [facility] [place] [facility] [address] [id number] [place] [address] Jun, [facility] [place] [facility] [address] [id number] [place] [address] May, [facility] [place] [facility] [address] [id number] [place] [address] May, [facility] [place] [facility] [address] [id number] [place] [address] May, [facility] [place] [facility] [address] [id number] [place] [address] May, [facility] [place] [facility] [address] [id number] [place] [address] May, [facility] [place] [facility] [address] [id number] [place] [address] Apr, [facility] [place] [facility] [address] [address] [id number] [place] [address] 18 Apr, 2012 [facility] [address] [id number] [place] [address] Apr, [facility] [address] [id number] [place] [address] Apr, [facility] [address] [id number] [place] [address] Apr, [facility] [address] [id number] [place] [address] March, [facility] [address] [id number] [place] [address] March, [facility] [address] [id number] [place] [address] March, [facility] [address] [id number] [place] [address] March, [facility] [address] [id number] [place] [address] March, [facility] [address] [id number] [place] [address] March, [facility] [address] [id number] [place] [address] March, [facility] [address] [id number] [place] [address] March, [facility] [address] [id number] [place] [address] March, [facility] [place] [facility] [address] [id number] [place] [address] March, [facility] [address] [id number] [place] [address] Feb, [facility] [address] [id number] [place] [address] Feb, [facility] [address] [id number] [place] [address] Feb, [facility] [place] [facility] [address] [id number] [place] [address] Feb, [facility] [place] [facility] [address] [id number] [place] [address] Feb, [facility] [place] [facility] [address] [id number] [place] [address] Feb, [facility] [place] [facility] [address] [id number] [place] [address] Feb, [facility] [place] [facility] [address] [id number] [place] [address] Feb, [facility] [place] [facility] [address] [id number] [place] [address] Feb, [facility] [place] [facility] [address] [id number] [place] [address] Jan, [facility] [place] [facility] [address] [id number] [place] [address] Jan, [facility] [place] [facility] [address] [id number] [place] [address] Jan, [facility] [place] [facility] [address] [id number] [place] [address] Jan, [facility] [place] [facility] [address] [id number] [place] [address] Dec, [facility] [place] [facility] [address] [id number] [place] [address] Dec, [facility] [place] [facility] [address] [id number] [place] [address] Nov, [facility] [place] [facility] [address] [id number] [place] [address] Nov, [facility] [place] [facility] [address] [id number] [address] Nov, [facility] [id number] [place] [address] Nov, [facility] [id number] [place] [address] Nov, [facility] [id number] [place] [address] Oct, [facility] [id number] [place] [address] Oct, [facility] [id number] [place] [address] Oct, [facility] [id number], [place] [address] Oct, [facility] [id number] [place] [address] Oct, [facility] [id number] [place] [address] Oct, [facility] [id number] [place] [address] Oct, [facility] [address] [id number] [address] Oct, [facility] [address] [id number] [address] Sep, IMMUNIZATIONS No Known Immunizations SOCIAL HISTORY Never Assessed REASON FOR VISIT [facility] PLAN OF CARE VITAL SIGNS MEDICATIONS Unknown Medications RESULTS No Results PROCEDURES No Known procedures INSTRUCTIONS MEDICATIONS ADMINISTERED No Known Medications MEDICAL (GENERAL) HISTORY Type Description Date 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
--- OUTSIDE RECORDS SUMMARY | 2019-04-16 15:26 | XMS REPORT ---
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 Name Role Phone Migration, Doctor Unavailable Unavailable PROBLEMS Type Condition ICD9-CM Code RVE94-AV Code Onset Dates Condition Status SNOMED Code Problem Coronary artery disease I25.10 Active 65595954 Problem Hypertension I10 Active 62552918 Problem Other chronic pain G89.29 Active 25327732 Problem Hyperlipidemia E78.5 Active 45193202 Problem Type 2 diabetes mellitus without complication, without long-term current use of insulin E11.9 Active 537318765 Problem Low back pain M54.5 Active 590132066 Problem Pharyngeal dysphagia R13.13 Active [id number] Problem Anxiety F41.9 Active 63050115 Problem Peripheral vascular disease I73.9 Active 333027043 Problem Suprapubic catheter Z93.59 Active 953684721 Problem Reactive depression F32.9 Active 92639630 Problem Neurogenic bladder N31.9 Active 428692594 Problem Ventral hernia without obstruction or gangrene K43.9 Active 664162753 Problem Insomnia G47.00 Active 232589311 Problem Paroxysmal atrial fibrillation I48.0 Active 005518494 Problem 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 Active 67486716 Problem Encounter for suprapubic catheter care Z43.5 Active [id number] ALLERGIES No Information ENCOUNTERS Encounter Location Date Diagnosis Via [facility] [address] [place] [id number] Jun, [facility] [address] [facility] [place] [id number] March, [facility] [address] [id number] [address] Feb, Other chronic pain G89.29 [facility] [address] [id number], [place] [address] Feb, Anxiety F41.9 [facility] [address] [id number], [place] [address] Feb, Other chronic pain G89.29 Via [facility] [address] [place] [id number] Feb, Neurogenic bladder N31.9 and Suprapubic catheter Z93.59 [facility] [address] [id number], [place] [address] Jan, Anxiety F41.9 [facility] [id number] [place] [address] Dec, Anxiety F41.9 [facility] [address] [id number] [place] [address] Dec, Other chronic pain G89.29 and Anxiety F41.9 [facility] [address] [facility] [id number] [place] [address] Dec, Via [facility] [address] [place] [id number] Dec, Neurogenic bladder N31.9 and Suprapubic catheter Z93.59 [facility] [address] [facility] [id number] [place] [address] Nov, Other chronic pain G89.29 and Anxiety F41.9 [facility] [address] [facility] [id number] [place] [address] Nov, Via [facility] [address] [place] [id number] Nov, Suprapubic catheter Z93.59 [facility] [address] [facility] [id number] [place] [address] Oct, Other chronic pain G89.29 and Anxiety F41.9 [facility] [address] [facility] [id number] [place] [address] Oct, [facility] [address] [facility] [id number] [place] [address] Oct, Suprapubic catheter Z93.59 [facility] [address] [facility] [id number] [place] [address] Oct, Via [facility] [address] [place] [id number] Oct, [facility] [address] [id number], [place] [address] Oct, Anxiety F41.9 [facility] [id number] [place] [address] Oct, Anxiety F41.9 [facility] [address] [place] [id number] Oct, Other chronic pain G89.29 [facility] [address] [id number] [place] [address] Sep, Other chronic pain G89.29 [facility] [address] [place] [address] Sep, Suprapubic catheter Z93.59 and Cervicalgia M54.2 [facility] [address] [id number], [place] [address] Sep, [facility] [address] [id number], [place] [address] Sep, [facility] [address] [facility] [id number], [place] [address] Sep, Via [facility] [address] [place] [id number] Aug, Cystitis N30.90 [facility] [address] [id number], [place] [address] Aug, [facility] [address] [id number], [place] [address] Aug, Other chronic pain G89.29 [facility] [address] [id number], [place] [address] Aug, Via [facility] [address] [place] [id number] Aug, Encounter for suprapubic catheter care Z43.5 [facility] [address]005[address], [place] [address] 20 Jul, 2018 [facility] [address] [place] [id number] Jul, [facility] [address], [place] [address] Jul, Other chronic pain G89.29 [facility] [address]005[address], [place] [address] Jul, [facility] [address]00565100[place], [place] [address] Jul, [facility] [address] [place] [id number] Jun, 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 [place] [id number] [place] [address] Jun, Other chronic pain G89.29 [place] [id number] [place] [address] Jun, Via [facility] [address] [place] [id number] May, Anxiety F41.9 ; Type 2 diabetes mellitus without complication, without long-term current use of insulin E11.9 ; Hypertension I10 ; Low back pain M54.5 ; Paroxysmal atrial fibrillation I48.0 and 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 [place] [address], [place] [address] May, Other chronic pain G89.29 [facility] [address] [place] [id number] May, Low back pain M54.5 [place] [address], [place] [address] May, [place] [address], [place] [address] Apr, Other chronic pain G89.29 [place] [address], [place] [address] Apr, [facility] [address] [id number], [place] [address] Apr, Via [facility] [address] [place] [id number] 19 Apr, 2018 Closed compression fracture of L3 lumbar vertebra with routine healing, subsequent encounter S32.030D [facility] [address] [place] [id number] 14 Apr, 2018 Low back pain M54.5 [facility] [address] [place] [id number] 12 Apr, 2018 Coccydynia M53.3 [facility] [id number] [place] [address] March, [facility] [address] [id number] [place] [address] March, Other chronic pain G89.29 [facility] [id number] [place] [address] March, [facility] [address] [id number], [place] [address] March, [facility] [id number] [place] [address] Feb, [facility] [address] [facility] [id number], [place] [address] Feb, Other chronic pain G89.29 [facility] [address] [place] [id number] Feb, Other chronic pain G89.29 and Anxiety F41.9 [facility] [address] [id number], [place] [address] Feb, [facility] [address] [facility] [id number] [place] [address] Jan, [facility] [address] [facility] [id number], [place] [address] Jan, [facility] [address] [facility] [id number], [place] [address] Jan, [facility] [address] [facility] [id number], [place] [address] Jan, [facility] [id number], [place] [address] Dec, [facility] [address] [place] [address] Dec, Peripheral vascular disease I73.9 ; 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 ; Other chronic pain G89.29 ; Anxiety F41.9 ; Reactive depression F32.9 ; Insomnia G47.00 and Type 2 diabetes mellitus without complication, without long-term current use of insulin E11.9 [address] [address] [id number] [place] [address] Nov, [facility] [address] [id number] [address] Nov, Anxiety F41.9 [facility] [address] [facility] [id number], [place] [address] Nov, [facility] [address] [id number] [address] Nov, Anxiety F41.9 [facility] [address] [facility] [place] [id number] Nov, Status post surgery Z98.890 ; Confused R41.0 ; Anxiety F41.9 and Other chronic pain G89.29 [facility] [address] [id number] [address] Nov, Other chronic pain G89.29 [facility] [address] [facility] [id number], [place] [address] Oct, [facility] [id number] [place] [id number] Oct, Other chronic pain G89.29 [facility] [address] [facility] [id number], [place] [address] Oct, Anxiety F41.9 [facility] [id number], [place] [address] Sep, Other chronic pain G89.29 [facility] [id number] [place] [id number] Sep, Via [facility] [address] [place] [id number] Aug, Dysuria R30.0 and Anxiety F41.9 [facility] [id number] [place] [address] Aug, [facility] [id number] [place] [id number] Aug, Other chronic pain G89.29 [facility] [id number] [place] [address] Jul, Other chronic pain G89.29 [facility] [id number] [place] [id number] Jun, [facility] [id number] [place] [id number] Jun, Other chronic pain G89.29 [facility] [id number] [place] [address] Jun, [facility] [address], [place] [address] May, Other chronic pain G89.29 [facility] [id number] [place] [address] Apr, Other chronic pain G89.29 [facility] [address] [place] [id number] Apr, Reactive depression F32.9 and Pharyngeal dysphagia R13.13 [facility] [address] [id number], [place] [address] Apr, Urinary tract infection without hematuria, site unspecified N39.0 [facility] [id number] [place] [address] March, Other chronic pain G89.29 [facility] [address], [place] [address] Feb, Other chronic pain G89.29 [facility] [address]100[place], [place] [address] Feb, [facility] [id number] [place] [id number] Feb, Via [employer] [facility] [address] [place] [id number] Feb, Dysuria R30.0 and Ventral hernia without obstruction or gangrene K43.9 [facility] [id number] [place] [address] Jan, Other chronic pain G89.29 [facility] [id number] [place] [id number] Dec, Other chronic pain G89.29 [facility] [id number] [place] [address] Nov, Other chronic pain G89.29 [facility] [address] [place] [address] Nov, Lymphadenitis I88.9 [facility] [address] [place] [address] Nov, Other chronic pain G89.29 [facility] [address], [place] [address] Nov, [facility] [id number] [place] [id number] Nov, Other chronic pain G89.29 [facility] [address] [place] [id number] Oct, Low back pain M54.5 ; Hypertension I10 and Type 2 diabetes mellitus without complication, without long-term current use of insulin E11.9 [facility] [id number] [place] [address] Oct, [facility] [address] [facility] [id number], [place] [address] Oct, [facility] [address] [facility] [id number], [place] [address] Oct, [facility] [address] [facility] [id number], [place] [address] Oct, [facility] [address] [facility] [id number], [place] [address] Sep, [facility] [address] [facility] [id number], [place] [address] Sep, [facility] [address] [facility] [id number], [place] [address] Aug, Other chronic pain G89.29 [facility] [address] [facility] [id number], [place] [address] Jul, [facility] [address]005[address]100[place], [place] [address] Jul, [facility] [address]00565100[place], [place] [address] Jul, [facility] [address]00565100[place], [place] [address] Jun, [facility] [address] [id number], [place] [address] Jun, [facility] [address] [place] [id number] Jun, Low back pain M54.5 ; Other chronic pain G89.29 and Coronary artery disease I25.10 [facility] [address] [facility] [id number], [place] [address] Jun, [facility] [address] [facility] [id number], [place] [address] May, [facility] [address] [id number], [place] [address] May, [facility] [address], [place] [address] May, Other chronic pain G89.29 [facility] [address]00565100[place], [place] [address] May, [facility] [address]00565100[place], [place] [address] 28 Apr, 2016 [facility] [id number] [place] [address] 17 Apr, 2016 Acute cystitis without hematuria N30.00 [facility] [id number] [place] [address] 16 Apr, 2016 Acute cystitis without hematuria N30.00 ; Coronary artery disease I25.10 ; Low back pain M54.5 and Other chronic pain G89.29 [facility] [address]100[place], [place] [address] Apr, Other chronic pain G89.29 [facility] [address]65100[place], [place] [address] March, Other chronic pain G89.29 [facility] [address]65100[place], [place] [address] 18 Feb, 2016 [facility] [address], [place] [address] 15 Feb, 2016 Arthritis M19.90 [facility] [address]100[place], [place] [address] Feb, [facility] [address]100[place], [place] [address] 30 Jan, 2016 [facility] [address]65100[place], [place] [address] Jan, [facility] [address], [place] [address] Jan, Other chronic pain G89.29 [facility] [address], [place] [address] Jan, Hypertension I10 ; Coronary artery disease I25.10 and Insomnia G47.00 [facility] [address]005[address]100[place], [place] [address] Jan, [facility] [id number] [place] [address] Dec, Right hip pain M25.551 [facility] [id number] [place] [address] Dec, [facility] [id number] [place] [address] Dec, [facility] [id number] [place] [address] Dec, [facility] [id number] [place] [address] Dec, Other chronic pain G89.29 [facility] [address] [place] [address] Dec, [facility] [id number] [place] [address] Nov, [facility] [address], [place] [address] Nov, Other chronic pain G89.29 [facility] [address] [place] [address] Nov, Right hip pain M25.551 and Coronary artery disease I25.10 [facility] [address] [place] [address] Nov, Other chronic pain G89.29 [facility] [address]100[place], [place] [address] Oct, [facility] [id number] [place] [address] Oct, [facility] [address], [place] [address] Sep, [facility] [id number] [place] [address] Sep, [facility] [id number] [place] [address] Aug, [facility] [id number] [place] [address] Aug, Hypertension I10 ; Coronary artery disease I25.10 and Arthritis M19.90 [facility] [id number] [place] [address] Jun, [facility] [id number] [place] [address] Jun, Essential hypertension, benign 401.1 ; Other chronic pain 338.29 and Chronic airway obstruction, not elsewhere classified 496 [facility] [address], [place] [address] Jun, [facility] [id number] [place] [address] Jun, [facility] [address], [place] [address] Jun, [facility] [address], [place] [address] May, [facility] [address]100[place], [place] [address] May, [facility] [id number] [place] [address] Apr, [facility] [address], [place] [address] 16 Apr, 2015 [facility] [address]00565100[place], [place] [address] Apr, [facility] [address] [id number] [place] [address] March, [facility] [address] [id number] [place] [address] March, [facility] [address] [id number] [place] [address] March, [facility] [address] [id number] [place] [address] March, [facility] [address] [id number] [place] [address] March, Sialadenitis 527.2 [facility] [address] [id number] [place] [address] Feb, [facility] [address] [id number] [place] [address] Feb, [facility] [address] [id number] [place] [address] Feb, [facility] [address] [id number] [place] [address] Feb, [facility] [address] [facility] [id number] [place] [address] Feb, [facility] [address] [id number], [place] [address] Jan, [facility] [address] [id number], [place] [address] Jan, [facility] [address] [id number] [place] [address] Jan, [facility] [address] [id number] [place] [address] Jan, [facility] [address] [facility] [id number] [place] [address] Jan, [facility] [address] [id number] [place] [address] Jan, [facility] [place] [facility] [address] [id number] [place] [address] Dec, 2014 [facility] [place] [facility] [address] [id number] [place] [address] Dec, 2014 [facility] [place] [facility] [address] [id number] [place] [address] Dec, 2014 [facility] [place] [facility] [address] [id number] [place] [address] Dec, 2014 [facility] [place] [facility] [address] [id number] [place] [address] Dec, 2014 [facility] [place] [facility] [address] [id number] [place] [address] Dec, 2014 [facility] [place] [facility] [address] [id number] [place] [address] Nov, [facility] [place] [facility] [address] [id number] [place] [address] Nov, [facility] [place] [facility] [address] [id number] [place] [address] Nov, [facility] [place] [facility] [address] [id number] [place] [address] Nov, [facility] [place] [facility] [address] [id number] [place] [address] Nov, [facility] [place] [facility] [address] [id number] [place] [address] Nov, [facility] [place] [facility] [address] [id number] [place] [address] Nov, [facility] [place] [facility] [address] [id number] [place] [address] Nov, [facility] [place] [facility] [address] [id number] [place] [address] Nov, [facility] [place] [facility] [address] [id number] [place] [address] Nov, [facility] [place] [facility] [address] [id number] [place] [address] Nov, [facility] [place] [facility] [address] [id number] [place] [address] Nov, [facility] [place] [facility] [address] [id number] [place] [address] Nov, [facility] [place] [facility] [address] [id number] [place] [address] Nov, [facility] [place] [facility] [address] [id number] [place] [address] Oct, [facility] [place] [facility] [address] [id number] [place] [address] Oct, [facility] [place] [facility] [address] [id number] [place] [address] Oct, [facility] [place] [facility] [address] [id number] [place] [address] 18 Oct, 2014 [facility] [place] [facility] [address] [id number] [place] [address] 18 Oct, 2014 [facility] [place] [facility] [address] [id number] [place] [address] 17 Oct, 2014 [facility] [place] [facility] [address] [id number] [place] [address] 17 Oct, 2014 [facility] [place] [facility] [address] [id number] [place] [address] 10 Oct, 2014 [facility] [place] [facility] [address] [id number] [place] [address] Oct, [facility] [place] [facility] [address] [id number] [place] [address] Sep, [facility] [place] [facility] [address] [id number] [place] [address] Sep, [facility] [place] [facility] [address] [id number] [place] [address] Sep, [facility] [place] [facility] [address] [id number] [place] [address] Sep, [facility] [place] [facility] [address] [id number] [place] [address] Sep, [facility] [place] [facility] [address] [id number] [place] [address] Sep, [facility] [place] [facility] [address] [id number] [place] [address] Sep, [facility] [place] [facility] [address] [id number] [place] [address] Sep, [facility] [place] [facility] [address] [id number] [place] [address] Sep, [facility] [place] [facility] [address] [id number] [place] [address] Sep, [facility] [place] [facility] [address] [id number] [place] [address] Sep, [facility] [place] [facility] [address] [facility] [id number] [place] [address] Sep, [facility] [place] [facility] [address] [id number] [place] [address] Aug, [facility] [place] [facility] [address] [id number], [place] [address] Aug, [facility] [place] [facility] [address] [id number] [place] [address] Aug, [facility] [place] [facility] [address] [id number] [place] [address] Aug, [facility] [place] [facility] [address] [id number], [place] [address] Aug, [facility] [place] [facility] [address] [id number] [place] [address] 28 Aug, 2014 [facility] [place] [facility] [address] [id number] [place] [address] Aug, [facility] [place] [facility] [address] [id number] [place] [address] 17 Aug, 2013 [facility] [place] [facility] [address] [id number] [place] [address] 30 Jul, 2013 [facility] [place] [facility] [address] [id number] [place] [address] 30 Jul, 2013 [facility] [place] [facility] [address] [id number] [place] [address] 30 Jul, 2013 [facility] [place] [facility] [address] [id number] [place] [address] 30 Jul, 2013 [facility] [place] [facility] [address] [id number] [place] [address] 25 Jul, 2013 [facility] [place] [facility] [address] [id number] [place] [address] 25 Jul, 2013 [facility] [place] [facility] [address] [id number] [place] [address] 15 Jul, 2014 [facility] [place] [facility] [address] [id number] [place] [address] 15 Jul, 2014 [facility] [place] [facility] [address] [id number] [place] [address] 11 Jul, 2014 [facility] [place] [facility] [address] [id number] [place] [address] Jul, [facility] [place] [facility] [address] [id number] [place] [address] Jun, [facility] [place] [facility] [address] [id number] [place] [address] Jun, [facility] [place] [facility] [address] [id number] [place] [address] Jun, [facility] [place] [facility] [address] [id number] [place] [address] Jun, [facility] [place] [facility] [address] [id number] [place] [address] Jun, [facility] [place] [facility] [address] [id number] [place] [address] Jun, [facility] [place] [facility] [address] [id number] [place] [address] Jun, [facility] [place] [facility] [address] [id number] [place] [address] Jun, [facility] [place] [facility] [address] [id number] [place] [address] Jun, [facility] [place] [facility] [address] [id number] [place] [address] Jun, [facility] [place] [facility] [address] [id number] [place] [address] Jun, [facility] [place] [facility] [address] [id number] [place] [address] Jun, [facility] [place] [facility] [address] [id number] [place] [address] Jun, [facility] [place] [facility] [address] [id number] [place] [address] Jun, [facility] [place] [facility] [address] [id number] [place] [address] Jun, [facility] [place] [facility] [address] [id number] [place] [address] Jun, [facility] [place] [facility] [address] [id number] [place] [address] Jun, [facility] [place] [facility] [address] [id number] [place] [address] Jun, [facility] [place] [facility] [address] [id number] [place] [address] Jun, [facility] [place] [facility] [address] [id number] [place] [address] Jun, [facility] [place] [facility] [address] [id number] [place] [address] Jun, [facility] [place] [facility] [address] [id number] [place] [address] Jun, [facility] [place] [facility] [address] [id number] [place] [address] May, [facility] [place] [facility] [address] [id number] [place] [address] May, [facility] [place] [facility] [address] [id number] [place] [address] May, [facility] [place] [facility] [address] [id number] [place] [address] May, [facility] [place] [facility] [address] [id number] [place] [address] May, [facility] [place] [facility] [address] [id number] [place] [address] May, [facility] [place] [facility] [address] [id number] [place] [address] May, [facility] [place] [facility] [address] [id number] [place] [address] May, [facility] [place] [facility] [address] [id number] [place] [address] May, [facility] [place] [facility] [address] [id number] [place] [address] May, [facility] [place] [facility] [address] [id number] [place] [address] May, [facility] [place] [facility] [address] [id number] [place] [address] May, [facility] [place] [facility] [address] [id number] [place] [address] May, [facility] [place] [facility] [address] [id number] [place] [address] Apr, [facility] [place] [facility] [address] [id number] [place] [address] Apr, [facility] [place] [facility] [address] [id number] [place] [address] Apr, [facility] [place] [facility] [address] [id number] [place] [address] Apr, [facility] [place] [facility] [address] [id number] [place] [address] Apr, [facility] [place] [facility] [address] [id number] [place] [address] Apr, [facility] [place] [facility] [address] [id number] [place] [address] Apr, [facility] [place] [facility] [address] [id number] [place] [address] Apr, [facility] [place] [facility] [address] [id number] [place] [address] Apr, [facility] [place] [facility] [address] [id number] [place] [address] March, [facility] [place] [facility] [address] [id number] [place] [address] March, [facility] [place] [facility] [address] [id number] [place] [address] March, [facility] [place] [facility] [address] [id number] [place] [address] March, [facility] [place] [facility] [address] [id number] [place] [address] March, [facility] [place] [facility] [address] [id number] [place] [address] March, [facility] [address] [id number] [place] [address] March, [facility] [place] [facility] [address] [id number] [place] [address] March, [facility] [place] [facility] [address] [id number] [place] [address] March, [facility] [place] [facility] [address] [id number] [place] [address] March, [facility] [place] [facility] [address] [id number] [place] [address] March, [facility] [place] [facility] [address] [id number] [place] [address] March, [facility] [address] [id number] [place] [address] March, [facility] [place] [facility] [address] [id number] [place] [address] March, [facility] [place] [facility] [address] [id number] [place] [address] March, [facility] [place] [facility] [address] [id number] [place] [address] March, [facility] [place] [facility] [address] [id number] [place] [address] March, [facility] [place] [facility] [address] [id number] [place] [address] March, [facility] [place] [facility] [address] [id number] [place] [address] March, [facility] [place] [facility] [address] [id number] [place] [address] March, [facility] [place] [facility] [address] [id number] [place] [address] Feb, [facility] [place] [facility] [address] [id number] [place] [address] 29 Feb, 2014 [facility] [place] [facility] [address] [id number] [place] [address] Feb, [facility] [place] [facility] [address] [id number] [place] [address] Feb, [facility] [place] [facility] [address] [id number] [place] [address] Feb, [facility] [place] [facility] [address] [id number] [place] [address] Feb, [facility] [place] [facility] [address] [id number] [place] [address] Feb, [facility] [place] [facility] [address] [id number] [place] [address] Feb, [facility] [place] [facility] [address] [id number] [place] [address] Jan, [facility] [place] [facility] [address] [id number] [place] [address] Jan, [facility] [place] [facility] [address] [id number] [place] [address] Jan, [facility] [place] [facility] [address] [id number] [place] [address] 24 Jan, 2014 [facility] [place] [facility] [address] [id number] [place] [address] Jan, [facility] [place] [facility] [address] [id number] [place] [address] Jan, [facility] [place] [facility] [address] [id number] [place] [address] Jan, [facility] [place] [facility] [address] [id number] [place] [address] Jan, [facility] [place] [facility] [address] [id number] [place] [address] Jan, [facility] [place] [facility] [address] [id number] [place] [address] Jan, [facility] [place] [facility] [address] [id number] [place] [address] Dec, [facility] [place] [facility] [address] [id number] [place] [address] Dec, [facility] [place] [facility] [address] [id number] [place] [address] Dec, [facility] [place] [facility] [address] [id number] [place] [address] Dec, [facility] [place] [facility] [address] [id number] [place] [address] Dec, [facility] [place] [facility] [address] [id number] [place] [address] Dec, [facility] [place] [facility] [address] [id number] [place] [address] Dec, [facility] [place] [facility] [address] [id number] [place] [address] Dec, [facility] [place] [facility] [address] [id number] [place] [address] Nov, [facility] [place] [facility] [address] [id number] [place] [address] Nov, [facility] [place] [facility] [address] [id number] [place] [address] Nov, [facility] [place] [facility] [address] [id number] [place] [address] Nov, [facility] [place] [facility] [address] [id number] [place] [address] Nov, [facility] [place] [facility] [address] [id number] [place] [address] Nov, [facility] [place] [facility] [address] [id number] [place] [address] Nov, [facility] [address] [id number] [place] [address] Nov, [facility] [place] [facility] [address] [id number] [place] [address] Nov, [facility] [address] [id number] [place] [address] Nov, [facility] [address] [id number] [place] [address] Nov, [facility] [address] [id number] [place] [address] Nov, [facility] [address] [id number] [place] [address] Nov, [facility] [address] [id number] [place] [address] Oct, [facility] [address] [id number] [place] [address] 30 Oct, 2013 [facility] [address] [id number] [place] [address] Oct, [facility] [address] [id number] [place] [address] Oct, [facility] [place] [facility] [address] [id number] [place] [address] Oct, [facility] [address] [id number] [place] [address] Oct, [facility] [place] [facility] [address] [id number] [place] [address] Oct, [facility] [place] [facility] [address] [id number] [place] [address] Oct, [facility] [place] [facility] [address] [id number] [place] [address] Oct, [facility] [address] [id number] [place] [address] Oct, [facility] [place] [facility] [address] [id number] [place] [address] Oct, [facility] [place] [facility] [address] [id number] [place] [address] Oct, [facility] [place] [facility] [address] [id number] [place] [address] Oct, [facility] [place] [facility] [address] [id number] [place] [address] Oct, [facility] [place] [facility] [address] [id number] [place] [address] Sep, [facility] [place] [facility] [address] [id number] [place] [address] Sep, [facility] [place] [facility] [address] [id number], [place] [address] Sep, [facility] [place] [facility] [address] [id number] [place] [address] Sep, [facility] [place] [facility] [address] [id number], [place] [address] Sep, [facility] [place] [facility] [address] [id number], [place] [address] Sep, [facility] [place] [facility] [address] [id number], [place] [address] Sep, [facility] [place] [facility] [address] [id number], [place] [address] Sep, [facility] [place] [facility] [address] [id number], [place] [address] Sep, [facility] [place] [facility] [address] [id number], [place] [address] Sep, [facility] [place] [facility] [address] [id number] [place] [address] 24 Aug, 2012 [facility] [place] [facility] [address] [id number] [place] [address] 24 Aug, 2012 [facility] [place] [facility] [address] [id number] [place] [address] 24 Aug, 2012 [facility] [place] [facility] [address] [id number] [place] [address] 24 Aug, 2012 [facility] [place] [facility] [address] [id number] [place] [address] 23 Aug, 2012 [facility] [place] [facility] [address] [id number] [place] [address] 23 Aug, 2012 [facility] [place] [facility] [address] [id number] [place] [address] 23 Aug, 2012 [facility] [place] [facility] [address] [id number] [place] [address] 23 Aug, 2012 [facility] [place] [facility] [address] [id number] [place] [address] 22 Aug, 2012 [facility] [place] [facility] [address] [id number] [place] [address] 22 Aug, 2012 [facility] [place] [facility] [address] [id number] [place] [address] 18 Aug, 2012 [facility] [place] [facility] [address] [id number] [place] [address] 18 Aug, 2012 [facility] [place] [facility] [address] [id number], [place] [address] 18 Aug, 2012 [facility] [place] [facility] [address] [id number] [place] [address] 18 Aug, 2012 [facility] [place] [facility] [address] [id number] [place] [address] 17 Aug, 2012 [facility] [place] [facility] [address] [id number], [place] [address] 14 Aug2012 [facility] [place] [facility] [address] [id number] [place] [address] 14 Aug, 2013 [facility] [place] [facility] [address] [id number] [place] [address] Aug, [facility] [place] [facility] [address] [id number] [place] [address] 20 Jul, 2013 [facility] [place] [facility] [address] [id number] [place] [address] 19 Jul, 2013 [facility] [place] [facility] [address] [id number] [place] [address] 18 Jul, 2013 [facility] [place] [facility] [address] [id number] [place] [address] 11 Jul, 2013 [facility] [place] [facility] [address] [id number] [place] [address] Jul, [facility] [place] [facility] [address] [id number] [place] [address] Jun, [facility] [place] [facility] [address] [id number] [place] [address] Jun, [facility] [place] [facility] [address] [id number] [place] [address] Jun, [facility] [place] [facility] [address] [id number] [place] [address] 15 Jun, 2013 [facility] [place] [facility] [address] [id number] [place] [address] 14 Jun, 2013 [facility] [place] [facility] [address] [id number] [place] [address] Jun, [facility] [place] [facility] [address] [id number] [place] [address] Jun, [facility] [place] [facility] [address] [id number] [place] [address] 08 Jun, 2013 [facility] [place] [facility] [address] [id number] [place] [address] Jun, [facility] [place] [facility] [address] [id number] [place] [address] Jun, [facility] [place] [facility] [address] [id number] [place] [address] May, [facility] [place] [facility] [address] [id number] [place] [address] May, [facility] [place] [facility] [address] [id number] [place] [address] May, [facility] [place] [facility] [address] [id number] [place] [address] May, [facility] [place] [facility] [address] [id number] [place] [address] May, [facility] [place] [facility] [address] [id number] [place] [address] May, [facility] [place] [facility] [address] [id number] [place] [address] May, [facility] [place] [facility] [address] [id number] [place] [address] May, [facility] [place] [facility] [address] [id number] [place] [address] May, [facility] [place] [facility] [address] [id number] [place] [address] Apr, [facility] [place] [facility] [address] [id number] [place] [address] Apr, [facility] [place] [facility] [address] [id number] [place] [address] Apr, [facility] [place] [facility] [address] [id number] [place] [address] Apr, [facility] [place] [facility] [address] [id number] [place] [address] Apr, [facility] [place] [facility] [address] [id number] [place] [address] Apr, [facility] [address] [id number] [place] [address] Apr, [facility] [address] [id number] [place] [address] March, [facility] [address] [id number] [place] [address] Feb, [facility] [address] [id number] [place] [address] Feb, [facility] [address] [id number] [place] [address] Feb, [facility] [address] [id number] [place] [address] Jan, [facility] [address] [id number] [place] [address] Jan, [facility] [address] [id number] [place] [address] Jan, [facility] [address] [id number] [place] [address] Jan, [facility] [address] [id number] [place] [address] Jan, [facility] [address] [id number] [place] [address] Jan, [facility] [address] [id number] [place] [address] Jan, [facility] [address] [id number] [place] [address] Jan, [facility] [address] [id number] [place] [address] Dec, [facility] [address] [id number] [place] [address] Dec, [facility] [address] [id number] [place] [address] 13 Dec, 2012 [facility] [place] [facility] [address] [id number] [place] [address] Dec, [facility] [place] [facility] [address] [id number] [place] [address] 07 Dec, 2012 [facility] [place] [facility] [address] [id number] [place] [address] 06 Dec, 2012 [facility] [place] [facility] [address] [id number] [place] [address] Dec, [facility] [place] [facility] [address] [id number] [place] [address] Nov, [facility] [place] [facility] [address] [id number] [place] [address] Nov, [facility] [place] [facility] [address] [id number] [place] [address] Nov, [facility] [place] [facility] [address] [id number] [place] [address] Nov, [facility] [place] [facility] [address] [id number] [place] [address] Nov, [facility] [place] [facility] [address] [id number] [place] [address] Nov, [facility] [place] [facility] [address] [id number] [place] [address] Nov, [facility] [place] [facility] [address] [id number] [place] [address] Oct, [facility] [place] [facility] [address] [id number] [place] [address] Oct, [facility] [place] [facility] [address] [id number] [place] [address] Oct, [facility] [place] [facility] [address] [id number] [place] [address] Oct, [facility] [place] [facility] [address] [id number] [place] [address] Oct, [facility] [place] [facility] [address] [id number] [place] [address] Oct, [facility] [place] [facility] [address] [id number] [place] [address] Oct, [facility] [place] [facility] [address] [id number] [place] [address] Oct, [facility] [place] [facility] [address] [id number] [place] [address] Oct, [facility] [place] [facility] [address] [id number] [place] [address] Oct, [facility] [place] [facility] [address] [id number] [place] [address] Oct, [facility] [place] [facility] [address] [id number] [place] [address] Oct, [facility] [place] [facility] [address] [id number] [place] [address] Sep, [facility] [place] [facility] [address] [facility] [id number] [place] [address] Sep, [facility] [place] [facility] [address] [id number] [place] [address] Sep, [facility] [place] [facility] [address] [id number] [place] [address] Sep, [facility] [place] [facility] [address] [id number] [place] [address] Sep, [facility] [place] [facility] [address] [id number] [place] [address] Sep, [facility] [place] [facility] [address] [id number] [place] [address] Sep, [facility] [place] [facility] [address] [id number] [place] [address] Sep, [facility] [place] [facility] [address] [id number] [place] [address] Sep, [facility] [place] [facility] [address] [id number] [place] [address] Sep, [facility] [place] [facility] [address] [id number] [place] [address] Sep, [facility] [place] [facility] [address] [id number] [place] [address] Aug, [facility] [place] [facility] [address] [id number] [place] [address] Aug, [facility] [place] [facility] [address] [id number] [place] [address] Aug, [facility] [place] [facility] [address] [id number] [place] [address] Aug, [facility] [place] [facility] [address] [id number] [place] [address] Aug, [facility] [place] [facility] [address] [id number] [place] [address] Aug, [facility] [place] [facility] [address] [facility] [id number] [place] [address] Aug, [facility] [place] [facility] [address] [id number], [place] [address] Aug, [facility] [place] [facility] [address] [id number] [place] [address] Aug, [facility] [place] [facility] [address] [id number] [place] [address] Aug, [facility] [place] [facility] [address] [id number], [place] [address] Jul, [facility] [place] [facility] [address] [id number], [place] [address] Jul, [facility] [place] [facility] [address] [id number] [place] [address] Jul, [facility] [place] [facility] [address] [id number] [place] [address] Jul, [facility] [place] [facility] [address] [id number] [place] [address] Jun, [facility] [place] [facility] [address] [id number] [place] [address] Jun, [facility] [place] [facility] [address] [id number] [place] [address] Jun, [facility] [place] [facility] [address] [id number] [place] [address] Jun, [facility] [place] [facility] [address] [id number] [place] [address] Jun, [facility] [place] [facility] [address] [id number] [place] [address] Jun, [facility] [place] [facility] [address] [id number] [place] [address] Jun, [facility] [place] [facility] [address] [id number] [place] [address] May, [facility] [place] [facility] [address] [id number] [place] [address] May, [facility] [place] [facility] [address] [id number] [place] [address] May, [facility] [place] [facility] [address] [id number] [place] [address] May, [facility] [place] [facility] [address] [id number] [place] [address] May, [facility] [place] [facility] [address] [id number] [place] [address] Apr, [facility] [place] [facility] [address] [id number] [place] [address] 18 Apr, 2012 [facility] [address] [id number] [place] [address] Apr, [facility] [address] [id number] [place] [address] Apr, [facility] [address] [id number] [place] [address] Apr, [facility] [address] [id number] [place] [address] March, [facility] [address] [id number] [place] [address] March, [facility] [address] [id number] [place] [address] March, [facility] [address] [id number] [place] [address] March, [facility] [address] [id number] [place] [address] March, [facility] [address] [id number] [place] [address] March, [facility] [address] [id number] [place] [address] March, [facility] [address] [id number] [place] [address] March, [facility] [address] [id number] [place] [address] March, [facility] [place] [facility] [address] [id number] [place] [address] March, [facility] [address] [id number] [place] [address] Feb, [facility] [address] [id number] [place] [address] Feb, [facility] [address] [id number] [place] [address] Feb, [facility] [place] [facility] [address] [id number] [place] [address] Feb, [facility] [place] [facility] [address] [id number] [place] [address] Feb, [facility] [place] [facility] [address] [id number] [place] [address] Feb, [facility] [place] [facility] [address] [id number] [place] [address] Feb, [facility] [place] [facility] [address] [id number] [place] [address] Feb, [facility] [place] [facility] [address] [id number] [place] [address] Feb, [facility] [place] [facility] [address] [id number] [place] [address] Jan, [facility] [place] [facility] [address] [id number] [place] [address] Jan, [facility] [place] [facility] [address] [id number] [place] [address] Jan, [facility] [place] [facility] [address] [id number] [place] [address] Jan, [facility] [place] [facility] [address] [id number] [place] [address] Dec, [facility] [place] [facility] [address] [id number] [place] [address] Dec, [facility] [place] [facility] [address] [id number] [place] [address] Nov, [facility] [place] [facility] [address] [id number] [place] [address] Nov, [facility] [place] [facility] [id number] [address] Nov, [facility] [id number] [place] [address] Nov, [facility] [id number] [place] [address] Nov, [facility] [id number] [place] [address] Oct, [facility] [id number] [place] [address] Oct, [facility] [id number] [place] [address] Oct, [facility] [id number] [address] Oct, [facility] [id number] [place] [address] Oct, [facility] [id number] [place] [address] Oct, [facility] [id number] [place] [address] Oct, [facility] [id number] [address] Oct, [facility] [id number] [address] Sep, IMMUNIZATIONS No Known Immunizations SOCIAL HISTORY Never Assessed REASON FOR VISIT [facility] [place] PLAN OF CARE VITAL SIGNS MEDICATIONS Unknown Medications RESULTS No Results PROCEDURES No Known procedures INSTRUCTIONS MEDICATIONS ADMINISTERED No Known Medications MEDICAL (GENERAL) HISTORY Type Description Date 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
--- OUTSIDE RECORDS SUMMARY | 2019-04-16 15:27 | XMS REPORT ---
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 Name Role Phone Migration, Doctor Unavailable Unavailable PROBLEMS Type Condition ICD9-CM Code XRI15-AI Code Onset Dates Condition Status SNOMED Code Problem Coronary artery disease I25.10 Active 13981735 Problem Hypertension I10 Active 54462166 Problem Other chronic pain G89.29 Active 15942917 Problem Hyperlipidemia E78.5 Active 14671079 Problem Type 2 diabetes mellitus without complication, without long-term current use of insulin E11.9 Active 559292250 Problem Low back pain M54.5 Active 346039977 Problem Pharyngeal dysphagia R13.13 Active 16774130496290 Problem Anxiety F41.9 Active 76410339 Problem Peripheral vascular disease I73.9 Active 793574399 Problem Suprapubic catheter Z93.59 Active 834163535 Problem Reactive depression F32.9 Active 46435275 Problem Neurogenic bladder N31.9 Active 864218010 Problem Ventral hernia without obstruction or gangrene K43.9 Active 954511829 Problem Insomnia G47.00 Active 825303546 Problem Paroxysmal atrial fibrillation I48.0 Active 592775592 Problem 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 Active 79863688 Problem Encounter for suprapubic catheter care Z43.5 Active [id number] ALLERGIES No Information ENCOUNTERS Encounter Location Date Diagnosis [facility] [address] [place] [id number] Jun, [facility] [address] [facility] [place] [id number] March, [facility] [id number] [address] Feb, Other chronic pain G89.29 [facility] [address] [id number] [address] Feb, Anxiety F41.9 [facility] [id number] [address] Feb, Other chronic pain G89.29 [facility] [employer] [facility] [address] [place] [id number] Feb, Neurogenic bladder N31.9 and Suprapubic catheter Z93.59 [facility] [address] [id number] [address] Jan, Anxiety F41.9 [facility] [address] [id number] [place] [address] Dec, Anxiety F41.9 [facility] [id number] [place] [address] Dec, Other chronic pain G89.29 and Anxiety F41.9 [facility] [address] [facility] [id number] [place] [address] Dec, Via [employer] [address] [place] [id number] Dec, Neurogenic bladder N31.9 and Suprapubic catheter Z93.59 [facility] [address] [facility] [id number] [place] [address] Nov, Other chronic pain G89.29 and Anxiety F41.9 [facility] [address] [facility] [id number] [place] [address] Nov, Via [employer] [address] [place] [id number] Nov, Suprapubic catheter Z93.59 [facility] [address] [facility] [id number] [place] [address] Oct, Other chronic pain G89.29 and Anxiety F41.9 [facility] [address] [facility] [id number] [place] [address] Oct, [facility] [address] [facility] [id number] [place] [address] Oct, Suprapubic catheter Z93.59 [facility] [address] [facility] [id number] [place] [address] Oct, Via [employer] [address] [place] [id number] Oct, [facility] [address] [id number], [place] [address] Oct, Anxiety F41.9 [facility] [address] [id number] [place] [address] Oct, Anxiety F41.9 [facility] [employer] [address] [place] [id number] Oct, Other chronic pain G89.29 [facility] [address] [id number] [place] [address] Sep, Other chronic pain G89.29 Via [employer] [facility] [address] [place] [id number] Sep, Suprapubic catheter Z93.59 and Cervicalgia M54.2 [facility] [address] [id number], [place] [address] Sep, [facility] [address] [id number], [place] [address] Sep, [facility] [address] [facility] [id number], [place] [address] Sep, [facility] [employer] [address] [place] [id number] Aug, Cystitis N30.90 [facility] [address] [id number], [place] [address] Aug, [facility] [address] [id number], [place] [address] Aug, Other chronic pain G89.29 [facility] [address] [id number] [address] Aug, Via [employer] [address] [place] [id number] Aug, Encounter for suprapubic catheter care Z43.5 [facility] [address], [place] [address] 20 Jul, 2018 [facility] [employer] [address] [place] [id number] Jul, [facility] [address], [place] [address] Jul, Other chronic pain G89.29 [facility] [address], [place] [address] Jul, [facility] [address], [place] [address] Jul, [facility] [employer] [address] [place] [id number] Jun, 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 [id number] [place] [address] Jun, Other chronic pain G89.29 [place] [address] [place] [address] Jun, [facility] [employer] [address] [place] [id number] May, Anxiety F41.9 ; Type 2 diabetes mellitus without complication, without long-term current use of insulin E11.9 ; Hypertension I10 ; Low back pain M54.5 ; Paroxysmal atrial fibrillation I48.0 and 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 [address] [address] [address] May, Other chronic pain G89.29 [facility] [employer] [address] [place] [id number] May, Low back pain M54.5 [place] [address], [place] [address] May, [place] [address], [place] [address] Apr, Other chronic pain G89.29 [place] [address], [place] [address] Apr, [facility] [address] [id number], [place] [address] Apr, [facility] [address] [place] [id number] 19 Apr, 2018 Closed compression fracture of L3 lumbar vertebra with routine healing, subsequent encounter S32.030D [facility] [address] [place] [id number] 14 Apr, 2018 Low back pain M54.5 [facility] [employer] [address] [place] [id number] 12 Apr, 2018 Coccydynia M53.3 [facility] [address] [id number] [place] [address] March, [facility] [address] [id number] [place] [address] March, Other chronic pain G89.29 [facility] [address] [id number] [place] [address] March, [facility] [address] [id number], [place] [address] March, [facility] [address] [id number] [place] [address] Feb, [facility] [address] [facility] [id number], [place] [address] Feb, Other chronic pain G89.29 [facility] [employer] [address] [place] [id number] Feb, Other chronic pain G89.29 and Anxiety F41.9 [facility] [address] [id number], [place] [address] Feb, [facility] [address] [facility] [id number] [place] [address] Jan, [facility] [address] [facility] [id number], [place] [address] Jan, [facility] [address] [facility] [id number], [place] [address] Jan, [facility] [address] [facility] [id number], [place] [address] Jan, [facility] [address] [id number], [place] [address] Dec, [facility] [employer] [facility] [address] [place] [id number] Dec, Peripheral vascular disease I73.9 ; 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 ; Other chronic pain G89.29 ; Anxiety F41.9 ; Reactive depression F32.9 ; Insomnia G47.00 and Type 2 diabetes mellitus without complication, without long-term current use of insulin E11.9 [place] [address] [id number] [place] [address] Nov, [facility] [address] [id number] [address] Nov, Anxiety F41.9 [facility] [address] [facility] [id number][place] [address] Nov, [facility] [address] [id number] [address] Nov, Anxiety F41.9 [facility] [employer] [address] [facility] [place] [id number] Nov, Status post surgery Z98.890 ; Confused R41.0 ; Anxiety F41.9 and Other chronic pain G89.29 [facility] [address] [id number][place] [id number] Nov, Other chronic pain G89.29 [facility] [address] [facility] [id number], [place] [address] Oct, [facility] [id number] [place] [id number] Oct, Other chronic pain G89.29 [facility] [address] [facility] [id number], [place] [address] Oct, Anxiety F41.9 [facility] [id number] [address] Sep, Other chronic pain G89.29 [facility] [id number] [place] [id number] Sep, [facility] [employer] [address] [place] [id number] Aug, Dysuria R30.0 and Anxiety F41.9 [facility] [address] [place] [address] Aug, [facility] [id number] [place] [id number] Aug, Other chronic pain G89.29 [facility] [address] [place] [address] Jul, Other chronic pain G89.29 [facility] [id number] [place] [id number] Jun, [facility] [id number] [place] [id number] Jun, Other chronic pain G89.29 [facility] [address] [place] [address] Jun, [facility] [address] [address] May, Other chronic pain G89.29 [facility] [address] [place] [address] Apr, Other chronic pain G89.29 [facility] [employer] [address] [place] [id number] Apr, Reactive depression F32.9 and Pharyngeal dysphagia R13.13 [facility] [id number] [address] Apr, Urinary tract infection without hematuria, site unspecified N39.0 [facility] [address] [place] [address] March, Other chronic pain G89.29 [facility] [address], [place] [address] Feb, Other chronic pain G89.29 [facility] [address], [place] [address] Feb, [facility] [id number] [place] [id number] Feb, Via [employer] [address] [place] [id number] Feb, Dysuria R30.0 and Ventral hernia without obstruction or gangrene K43.9 [facility] [id number] [place] [address] Jan, Other chronic pain G89.29 [facility] [id number] [place] [id number] Dec, Other chronic pain G89.29 [facility] [id number] [place] [address] Nov, Other chronic pain G89.29 [facility] [employer] [address] [place] [id number] Nov, Lymphadenitis I88.9 [facility] [address] [place] [address] Nov, Other chronic pain G89.29 [facility] [address] [address] Nov, [facility] [id number] [place] [id number] Nov, Other chronic pain G89.29 [facility] [employer] [address] [place] [id number] Oct, Low back pain M54.5 ; Hypertension I10 and Type 2 diabetes mellitus without complication, without long-term current use of insulin E11.9 [facility] [address] [place] [address] Oct, [facility] [address] [facility] [id number], [place] [address] Oct, [facility] [address] [facility] [id number], [place] [address] Oct, [facility] [address] [facility] [id number], [place] [address] Oct, [facility] [address] [facility] [id number], [place] [address] Sep, [facility] [address] [facility] [id number], [place] [address] Sep, [facility] [address] [facility] [id number], [place] [address] Aug, Other chronic pain G89.29 [facility] [address] [facility] [id number], [place] [address] Jul, [facility] [address], [place] [address] Jul, [facility] [address], [place] [address] Jul, [facility] [address], [place] [address] Jun, [facility] [id number], [place] [address] Jun, [facility] [address] [facility] [address] [place] [id number] Jun, Low back pain M54.5 ; Other chronic pain G89.29 and Coronary artery disease I25.10 [facility] [address] [facility] [id number], [place] [address] Jun, [facility] [address] [facility] [id number], [place] [address] May, [facility] [id number] [address] May, [facility] [address], [place] [address] May, Other chronic pain G89.29 [facility] [address], [place] [address] May, [facility] [address], [place] [address] 28 Apr, 2016 [facility] [address] [place] [address] 17 Apr, 2016 Acute cystitis without hematuria N30.00 [facility] [id number] [place] [address] 16 Apr, 2016 Acute cystitis without hematuria N30.00 ; Coronary artery disease I25.10 ; Low back pain M54.5 and Other chronic pain G89.29 [facility] [address], [place] [address] Apr, Other chronic pain G89.29 [facility] [address], [place] [address] March, Other chronic pain G89.29 [facility] [address], [place] [address] 18 Feb, 2016 [facility] [address], [place] [address] 15 Feb, 2016 Arthritis M19.90 [facility] [address]005[address], [place] [address] Feb, [facility] [address], [place] [address] 30 Jan, 2016 [facility] [address], [place] [address] Jan, [facility] [address], [place] [address] Jan, Other chronic pain G89.29 [facility] [address], [place] [address] Jan, Hypertension I10 ; Coronary artery disease I25.10 and Insomnia G47.00 [facility] [address]005[address]100[place], [place] [address] Jan, [facility] [id number] [place] [address] Dec, Right hip pain M25.551 [facility] [id number] [place] [address] Dec, [facility] [id number] [place] [address] Dec, [facility] [id number] [place] [address] Dec, [facility] [id number] [place] [address] Dec, Other chronic pain G89.29 [facility] [address] [place] [address] Dec, [facility] [address] [place] [address] Nov, [facility] [address], [place] [address] Nov, Other chronic pain G89.29 [facility] [address] [place] [address] Nov, Right hip pain M25.551 and Coronary artery disease I25.10 [facility] [address] [place] [address] Nov, Other chronic pain G89.29 [facility] [address] [address] Oct, [facility] [id number] [place] [address] Oct, [facility] [address], [place] [address] Sep, [facility] [address] [place] [address] Sep, [facility] [id number] [place] [address] Aug, [facility] [id number] [place] [address] Aug, Hypertension I10 ; Coronary artery disease I25.10 and Arthritis M19.90 [facility] [id number] [place] [address] Jun, [facility] [id number] [place] [address] Jun, Essential hypertension, benign 401.1 ; Other chronic pain 338.29 and Chronic airway obstruction, not elsewhere classified 496 [facility] [address], [place] [address] Jun, [facility] [id number] [place] [address] Jun, [facility] [address], [place] [address] Jun, [facility] [address] [address] May, [facility] ([facility] [id number] [address] May, [facility] ([facility] [id number] [place] [address] Apr, [facility] ([facility] [id number] [address] 16 Apr, 2015 [facility] ([facility] [id number] [address] Apr, [facility] [address] [id number] [place] [address] March, [facility] [address] [id number] [place] [address] March, [facility] [address] [id number] [place] [address] March, [facility] [address] [id number] [place] [address] March, [facility] [address] [id number] [place] [address] March, Sialadenitis 527.2 [facility] [address] [id number] [place] [address] Feb, [facility] [address] [id number] [place] [address] Feb, [facility] [address] [id number] [place] [address] Feb, [facility] [address] [id number] [place] [address] Feb, [facility] [address] [facility] [id number] [place] [address] Feb, [facility] [address] [id number] [address] Jan, [facility] [address] [id number] [address] Jan, [facility] [address] [id number] [place] [address] Jan, [facility] [address] [id number] [place] [address] Jan, [facility] [address] [facility] [id number] [place] [address] Jan, [facility] [address] [id number] [place] [address] Jan, [facility] [place] [facility] [address] [id number] [place] [address] Dec, 2014 [facility] [place] [facility] [address] [id number] [place] [address] Dec, 2014 [facility] [place] [facility] [address] [id number] [place] [address] Dec, 2014 [facility] [place] [facility] [address] [id number] [place] [address] Dec, 2014 [facility] [place] [facility] [address] [id number] [place] [address] Dec, 2014 [facility] [place] [facility] [address] [id number] [place] [address] Dec, 2014 [facility] [place] [facility] [address] [id number] [place] [address] Nov, [facility] [place] [facility] [address] [id number] [place] [address] Nov, [facility] [place] [facility] [address] [id number] [place] [address] Nov, [facility] [place] [facility] [address] [id number] [place] [address] Nov, [facility] [place] [facility] [address] [id number] [place] [address] Nov, [facility] [place] [facility] [address] [id number] [place] [address] Nov, [facility] [place] [facility] [address] [id number] [place] [address] Nov, [facility] [place] [facility] [address] [id number] [place] [address] Nov, [facility] [place] [facility] [address] [id number] [place] [address] Nov, [facility] [place] [facility] [address] [id number] [place] [address] Nov, [facility] [place] [facility] [address] [id number] [place] [address] Nov, [facility] [place] [facility] [address] [id number] [place] [address] Nov, [facility] [place] [facility] [address] [id number] [place] [address] Nov, [facility] [place] [facility] [address] [id number] [place] [address] Nov, [facility] [place] [facility] [address] [id number] [place] [address] Oct, [facility] [place] [facility] [address] [id number] [place] [address] Oct, [facility] [place] [facility] [address] [id number] [place] [address] Oct, [facility] [place] [facility] [address] [id number] [place] [address] 18 Oct, 2014 [facility] [place] [facility] [address] [id number] [place] [address] 18 Oct, 2014 [facility] [place] [facility] [address] [id number] [place] [address] 17 Oct, 2014 [facility] [place] [facility] [address] [id number] [place] [address] 17 Oct, 2014 [facility] [place] [facility] [address] [id number] [place] [address] 10 Oct, 2014 [facility] [place] [facility] [address] [id number] [place] [address] Oct, [facility] [place] [facility] [address] [id number] [place] [address] Sep, [facility] [place] [facility] [address] [id number] [place] [address] Sep, [facility] [place] [facility] [address] [id number] [place] [address] Sep, [facility] [place] [facility] [address] [id number] [place] [address] Sep, [facility] [place] [facility] [address] [id number] [place] [address] Sep, [facility] [place] [facility] [address] [id number] [place] [address] Sep, [facility] [place] [facility] [address] [id number] [place] [address] Sep, [facility] [place] [facility] [address] [id number] [place] [address] Sep, [facility] [place] [facility] [address] [id number] [place] [address] Sep, [facility] [place] [facility] [address] [id number] [place] [address] Sep, [facility] [place] [facility] [address] [id number] [place] [address] Sep, [facility] [place] [facility] [address] [facility] [id number] [place] [address] Sep, [facility] [place] [facility] [address] [id number] [place] [address] Aug, [facility] [place] [facility] [address] [id number] [address] Aug, [facility] [place] [facility] [address] [id number] [place] [address] Aug, [facility] [place] [facility] [address] [id number] [place] [address] Aug, [facility] [place] [facility] [address] [id number] [address] Aug, [facility] [place] [facility] [address] [id number] [place] [address] 28 Aug, 2014 [facility] [place] [facility] [address] [id number] [place] [address] Aug, [facility] [place] [facility] [address] [id number] [place] [address] 17 Aug, 2013 [facility] [place] [facility] [address] [id number] [place] [address] 30 Jul, 2013 [facility] [place] [facility] [address] [id number] [place] [address] 30 Jul, 2013 [facility] [place] [facility] [address] [id number] [place] [address] 30 Jul, 2013 [facility] [place] [facility] [address] [id number] [place] [address] 30 Jul, 2013 [facility] [place] [facility] [address] [id number] [place] [address] 25 Jul, 2013 [facility] [place] [facility] [address] [id number] [place] [address] 25 Jul, 2013 [facility] [place] [facility] [address] [id number] [place] [address] 15 Jul, 2014 [facility] [place] [facility] [address] [id number] [place] [address] 15 Jul, 2014 [facility] [place] [facility] [address] [id number] [place] [address] 11 Jul, 2014 [facility] [place] [facility] [address] [id number] [place] [address] Jul, [facility] [place] [facility] [address] [id number] [place] [address] Jun, [facility] [place] [facility] [address] [id number] [place] [address] Jun, [facility] [place] [facility] [address] [id number] [place] [address] Jun, [facility] [place] [facility] [address] [id number] [place] [address] Jun, [facility] [place] [facility] [address] [id number] [place] [address] Jun, [facility] [place] [facility] [address] [id number] [place] [address] Jun, [facility] [place] [facility] [address] [id number] [place] [address] Jun, [facility] [place] [facility] [address] [id number] [place] [address] Jun, [facility] [place] [facility] [address] [id number] [place] [address] Jun, [facility] [place] [facility] [address] [id number] [place] [address] Jun, [facility] [place] [facility] [address] [id number] [place] [address] Jun, [facility] [place] [facility] [address] [id number] [place] [address] Jun, [facility] [place] [facility] [address] [id number] [place] [address] Jun, [facility] [place] [facility] [address] [id number] [place] [address] Jun, [facility] [place] [facility] [address] [id number] [place] [address] Jun, [facility] [place] [facility] [address] [id number] [place] [address] Jun, [facility] [place] [facility] [address] [id number] [place] [address] Jun, [facility] [place] [facility] [address] [id number] [place] [address] Jun, [facility] [place] [facility] [address] [id number] [place] [address] Jun, [facility] [place] [facility] [address] [id number] [place] [address] Jun, [facility] [place] [facility] [address] [id number] [place] [address] Jun, [facility] [place] [facility] [address] [id number] [place] [address] Jun, [facility] [place] [facility] [address] [id number] [place] [address] May, [facility] [place] [facility] [address] [id number] [place] [address] May, [facility] [place] [facility] [address] [id number] [place] [address] May, [facility] [place] [facility] [address] [id number] [place] [address] May, [facility] [place] [facility] [address] [id number] [place] [address] May, [facility] [place] [facility] [address] [id number] [place] [address] May, [facility] [place] [facility] [address] [id number] [place] [address] May, [facility] [place] [facility] [address] [id number] [place] [address] May, [facility] [place] [facility] [address] [id number] [place] [address] May, [facility] [place] [facility] [address] [id number] [place] [address] May, [facility] [place] [facility] [address] [id number] [place] [address] May, [facility] [place] [facility] [address] [id number] [place] [address] May, [facility] [place] [facility] [address] [id number] [place] [address] May, [facility] [place] [facility] [address] [id number] [place] [address] Apr, [facility] [place] [facility] [address] [id number] [place] [address] Apr, [facility] [place] [facility] [address] [id number] [place] [address] Apr, [facility] [place] [facility] [address] [id number] [place] [address] Apr, [facility] [place] [facility] [address] [id number] [place] [address] Apr, [facility] [place] [facility] [address] [id number] [place] [address] Apr, [facility] [place] [facility] [address] [id number] [place] [address] Apr, [facility] [place] [facility] [address] [id number] [place] [address] Apr, [facility] [place] [facility] [address] [id number] [place] [address] Apr, [facility] [place] [facility] [address] [id number] [place] [address] March, [facility] [place] [facility] [address] [id number] [place] [address] March, [facility] [place] [facility] [address] [id number] [place] [address] March, [facility] [place] [facility] [address] [id number] [place] [address] March, [facility] [place] [facility] [address] [id number] [place] [address] March, [facility] [place] [facility] [address] [id number] [place] [address] March, [facility] [address] [id number] [place] [address] March, [facility] [place] [facility] [address] [id number] [place] [address] March, [facility] [place] [facility] [address] [id number] [place] [address] March, [facility] [place] [facility] [address] [id number] [place] [address] March, [facility] [place] [facility] [address] [id number] [place] [address] March, [facility] [place] [facility] [address] [id number] [place] [address] March, [facility] [address] [id number] [place] [address] March, [facility] [place] [facility] [address] [id number] [place] [address] March, [facility] [place] [facility] [address] [id number] [place] [address] March, [facility] [place] [facility] [address] [id number] [place] [address] March, [facility] [place] [facility] [address] [id number] [place] [address] March, [facility] [place] [facility] [address] [id number] [place] [address] March, [facility] [place] [facility] [address] [id number] [place] [address] March, [facility] [place] [facility] [address] [id number] [place] [address] March, [facility] [place] [facility] [address] [id number] [place] [address] Feb, [facility] [place] [facility] [address] [id number] [place] [address] 29 Feb, 2014 [facility] [place] [facility] [address] [id number] [place] [address] Feb, [facility] [place] [facility] [address] [id number] [place] [address] Feb, [facility] [place] [facility] [address] [id number] [place] [address] Feb, [facility] [place] [facility] [address] [id number] [place] [address] Feb, [facility] [place] [facility] [address] [id number] [place] [address] Feb, [facility] [place] [facility] [address] [id number] [place] [address] Feb, [facility] [place] [facility] [address] [id number] [place] [address] Jan, [facility] [place] [facility] [address] [id number] [place] [address] Jan, [facility] [place] [facility] [address] [id number] [place] [address] Jan, [facility] [place] [facility] [address] [id number] [place] [address] 24 Jan, 2014 [facility] [place] [facility] [address] [id number] [place] [address] Jan, [facility] [place] [facility] [address] [id number] [place] [address] Jan, [facility] [place] [facility] [address] [id number] [place] [address] Jan, [facility] [place] [facility] [address] [id number] [place] [address] Jan, [facility] [place] [facility] [address] [id number] [place] [address] Jan, [facility] [place] [facility] [address] [id number] [place] [address] Jan, [facility] [place] [facility] [address] [id number] [place] [address] Dec, [facility] [place] [facility] [address] [id number] [place] [address] Dec, [facility] [place] [facility] [address] [id number] [place] [address] Dec, [facility] [place] [facility] [address] [id number] [place] [address] Dec, [facility] [place] [facility] [address] [id number] [place] [address] Dec, [facility] [place] [facility] [address] [id number] [place] [address] Dec, [facility] [place] [facility] [address] [id number] [place] [address] Dec, [facility] [place] [facility] [address] [id number] [place] [address] Dec, [facility] [place] [facility] [address] [id number] [place] [address] Nov, [facility] [place] [facility] [address] [id number] [place] [address] Nov, [facility] [place] [facility] [address] [id number] [place] [address] Nov, [facility] [place] [facility] [address] [id number] [place] [address] Nov, [facility] [place] [facility] [address] [id number] [place] [address] Nov, [facility] [place] [facility] [address] [id number] [place] [address] Nov, [facility] [place] [facility] [address] [id number] [place] [address] Nov, [facility] [address] [id number] [place] [address] Nov, [facility] [place] [facility] [address] [id number] [place] [address] Nov, [facility] [address] [id number] [place] [address] Nov, [facility] [address] [id number] [place] [address] Nov, [facility] [address] [id number] [place] [address] Nov, [facility] [address] [id number] [place] [address] Nov, [facility] [address] [id number] [place] [address] Oct, [facility] [address] [id number] [place] [address] 30 Oct, 2013 [facility] [address] [id number] [place] [address] Oct, [facility] [address] [id number] [place] [address] Oct, [facility] [place] [facility] [address] [id number] [place] [address] Oct, [facility] [address] [id number] [place] [address] Oct, [facility] [place] [facility] [address] [id number] [place] [address] Oct, [facility] [place] [facility] [address] [id number] [place] [address] Oct, [facility] [place] [facility] [address] [id number] [place] [address] Oct, [facility] [address] [id number] [place] [address] Oct, [facility] [place] [facility] [address] [id number] [place] [address] Oct, [facility] [place] [facility] [address] [id number] [place] [address] Oct, [facility] [place] [facility] [address] [id number] [place] [address] Oct, [facility] [place] [facility] [address] [id number] [place] [address] Oct, [facility] [place] [facility] [address] [id number] [place] [address] Sep, [facility] [place] [facility] [address] [id number] [place] [address] Sep, [facility] [place] [facility] [address] [id number] [address] Sep, [facility] [place] [facility] [address] [id number] [place] [address] Sep, [facility] [place] [facility] [address] [id number] [address] Sep, [facility] [place] [facility] [address] [id number], [place] [address] Sep, [facility] [place] [facility] [address] [id number], [place] [address] Sep, [facility] [place] [facility] [address] [id number], [place] [address] Sep, [facility] [place] [facility] [address] [id number], [place] [address] Sep, [facility] [place] [facility] [address] [id number], [place] [address] Sep, [facility] [place] [facility] [address] [id number] [place] [address] 24 Aug, 2012 [facility] [place] [facility] [address] [id number] [place] [address] 24 Aug, 2012 [facility] [place] [facility] [address] [id number] [place] [address] 24 Aug, 2012 [facility] [place] [facility] [address] [id number] [place] [address] 24 Aug, 2012 [facility] [place] [facility] [address] [id number] [place] [address] 23 Aug, 2012 [facility] [place] [facility] [address] [id number] [place] [address] 23 Aug, 2012 [facility] [place] [facility] [address] [id number] [place] [address] 23 Aug, 2012 [facility] [place] [facility] [address] [id number] [place] [address] 23 Aug, 2012 [facility] [place] [facility] [address] [id number] [place] [address] 22 Aug, 2012 [facility] [place] [facility] [address] [id number] [place] [address] 22 Aug, 2012 [facility] [place] [facility] [address] [id number] [place] [address] 18 Aug, 2012 [facility] [place] [facility] [address] [id number] [place] [address] 18 Aug, 2012 [facility] [place] [facility] [address] [id number] [address] 18 Aug, 2012 [facility] [place] [facility] [address] [id number] [place] [address] 18 Aug, 2012 [facility] [place] [facility] [address] [id number] [place] [address] 17 Aug, 2012 [facility] [place] [facility] [address] [id number] [address] 14 Aug2012 [facility] [place] [facility] [address] [id number] [place] [address] 14 Aug, 2013 [facility] [place] [facility] [address] [id number] [place] [address] Aug, [facility] [place] [facility] [address] [id number] [place] [address] 20 Jul, 2013 [facility] [place] [facility] [address] [id number] [place] [address] 19 Jul, 2013 [facility] [place] [facility] [address] [id number] [place] [address] 18 Jul, 2013 [facility] [place] [facility] [address] [id number] [place] [address] 11 Jul, 2013 [facility] [place] [facility] [address] [id number] [place] [address] Jul, [facility] [place] [facility] [address] [id number] [place] [address] Jun, [facility] [place] [facility] [address] [id number] [place] [address] Jun, [facility] [place] [facility] [address] [id number] [place] [address] Jun, [facility] [place] [facility] [address] [id number] [place] [address] 15 Jun, 2013 [facility] [place] [facility] [address] [id number] [place] [address] 14 Jun, 2013 [facility] [place] [facility] [address] [id number] [place] [address] Jun, [facility] [place] [facility] [address] [id number] [place] [address] Jun, [facility] [place] [facility] [address] [id number] [place] [address] 08 Jun, 2013 [facility] [place] [facility] [address] [id number] [place] [address] Jun, [facility] [place] [facility] [address] [id number] [place] [address] Jun, [facility] [place] [facility] [address] [id number] [place] [address] May, [facility] [place] [facility] [address] [id number] [place] [address] May, [facility] [place] [facility] [address] [id number] [place] [address] May, [facility] [place] [facility] [address] [id number] [place] [address] May, [facility] [place] [facility] [address] [id number] [place] [address] May, [facility] [place] [facility] [address] [id number] [place] [address] May, [facility] [place] [facility] [address] [id number] [place] [address] May, [facility] [place] [facility] [address] [id number] [place] [address] May, [facility] [place] [facility] [address] [id number] [place] [address] May, [facility] [place] [facility] [address] [id number] [place] [address] Apr, [facility] [place] [facility] [address] [id number] [place] [address] Apr, [facility] [place] [facility] [address] [id number] [place] [address] Apr, [facility] [place] [facility] [address] [id number] [place] [address] Apr, [facility] [place] [facility] [address] [id number] [place] [address] Apr, [facility] [place] [facility] [address] [id number] [place] [address] Apr, [facility] [address] [id number] [place] [address] Apr, [facility] [address] [id number] [place] [address] March, [facility] [address] [id number] [place] [address] Feb, [facility] [address] [id number] [place] [address] Feb, [facility] [address] [id number] [place] [address] Feb, [facility] [address] [id number] [place] [address] Jan, [facility] [address] [id number] [place] [address] Jan, [facility] [address] [id number] [place] [address] Jan, [facility] [address] [id number] [place] [address] Jan, [facility] [address] [id number] [place] [address] Jan, [facility] [address] [id number] [place] [address] Jan, [facility] [address] [id number] [place] [address] Jan, [facility] [address] [id number] [place] [address] Jan, [facility] [address] [id number] [place] [address] Dec, [facility] [address] [id number] [place] [address] Dec, [facility] [address] [id number] [place] [address] 13 Dec, 2012 [facility] [place] [facility] [address] [id number] [place] [address] Dec, [facility] [place] [facility] [address] [id number] [place] [address] 07 Dec, 2012 [facility] [place] [facility] [address] [id number] [place] [address] 06 Dec, 2012 [facility] [place] [facility] [address] [id number] [place] [address] Dec, [facility] [place] [facility] [address] [id number] [place] [address] Nov, [facility] [place] [facility] [address] [id number] [place] [address] Nov, [facility] [place] [facility] [address] [id number] [place] [address] Nov, [facility] [place] [facility] [address] [id number] [place] [address] Nov, [facility] [place] [facility] [address] [id number] [place] [address] Nov, [facility] [place] [facility] [address] [id number] [place] [address] Nov, [facility] [place] [facility] [address] [id number] [place] [address] Nov, [facility] [place] [facility] [address] [id number] [place] [address] Oct, [facility] [place] [facility] [address] [id number] [place] [address] Oct, [facility] [place] [facility] [address] [id number] [place] [address] Oct, [facility] [place] [facility] [address] [id number] [place] [address] Oct, [facility] [place] [facility] [address] [id number] [place] [address] Oct, [facility] [place] [facility] [address] [id number] [place] [address] Oct, [facility] [place] [facility] [address] [address] [id number] [place] [address] Oct, [facility] [place] [facility] [address] [id number] [place] [address] Oct, [facility] [place] [facility] [address] [id number] [place] [address] Oct, [facility] [place] [facility] [address] [id number] [place] [address] Oct, [facility] [place] [facility] [address] [id number] [place] [address] Oct, [facility] [place] [facility] [address] [id number] [place] [address] Oct, [facility] [place] [facility] [address] [id number] [place] [address] Sep, [facility] [place] [facility] [address] [facility] [id number] [place] [address] Sep, [facility] [place] [facility] [address] [id number] [place] [address] Sep, [facility] [place] [facility] [address] [id number] [place] [address] Sep, [facility] [place] [facility] [address] [id number] [place] [address] Sep, [facility] [place] [facility] [address] [id number] [place] [address] Sep, [facility] [place] [facility] [address] [id number] [place] [address] Sep, [facility] [place] [facility] [address] [id number] [place] [address] Sep, [facility] [place] [facility] [address] [id number] [place] [address] Sep, [facility] [place] [facility] [address] [id number] [place] [address] Sep, [facility] [place] [facility] [address] [id number] [place] [address] Sep, [facility] [place] [facility] [address] [id number] [place] [address] Aug, [facility] [place] [facility] [address] [id number] [place] [address] Aug, [facility] [place] [facility] [address] [id number] [place] [address] Aug, [facility] [place] [facility] [address] [id number] [place] [address] Aug, [facility] [place] [facility] [address] [id number] [place] [address] Aug, [facility] [place] [facility] [address] [id number] [place] [address] Aug, [facility] [place] [facility] [address] [facility] [id number] [place] [address] Aug, [facility] [place] [facility] [address] [id number] [address] Aug, [facility] [place] [facility] [address] [id number] [place] [address] Aug, [facility] [place] [facility] [address] [id number] [place] [address] Aug, [facility] [place] [facility] [address] [id number] [address] Jul, [facility] [place] [facility] [address] [id number], [place] [address] Jul, [facility] [place] [facility] [address] [id number] [place] [address] Jul, [facility] [place] [facility] [address] [id number] [place] [address] Jul, [facility] [place] [facility] [address] [id number] [place] [address] Jun, [facility] [place] [facility] [address] [id number] [place] [address] Jun, [facility] [place] [facility] [address] [id number] [place] [address] Jun, [facility] [place] [facility] [address] [id number] [place] [address] Jun, [facility] [place] [facility] [address] [id number] [place] [address] Jun, [facility] [place] [facility] [address] [id number] [place] [address] Jun, [facility] [place] [facility] [address] [id number] [place] [address] Jun, [facility] [place] [facility] [address] [id number] [place] [address] May, [facility] [place] [facility] [address] [id number] [place] [address] May, [facility] [place] [facility] [address] [id number] [place] [address] May, [facility] [place] [facility] [address] [id number] [place] [address] May, [facility] [place] [facility] [address] [id number] [place] [address] May, [facility] [place] [facility] [address] [id number] [place] [address] Apr, [facility] [place] [facility] [address] [id number] [place] [address] 18 Apr, 2012 [facility] [address] [id number] [place] [address] Apr, [facility] [address] [id number] [place] [address] Apr, [facility] [address] [id number] [place] [address] Apr, [facility] [address] [id number] [place] [address] March, [facility] [address] [id number] [place] [address] March, [facility] [address] [id number] [place] [address] March, [facility] [address] [id number] [place] [address] March, [facility] [address] [id number] [place] [address] March, [facility] [address] [id number] [place] [address] March, [facility] [address] [id number] [place] [address] March, [facility] [address] [id number] [place] [address] March, [facility] [address] [id number] [place] [address] March, [facility] [place] [facility] [address] [id number] [place] [address] March, [facility] [address] [id number] [place] [address] Feb, [facility] [address] [id number] [place] [address] Feb, [facility] [address] [id number] [place] [address] Feb, [facility] [place] [facility] [address] [id number] [place] [address] Feb, [facility] [place] [facility] [address] [id number] [place] [address] Feb, [facility] [place] [facility] [address] [id number] [place] [address] Feb, [facility] [place] [facility] [address] [id number] [place] [address] Feb, [facility] [place] [facility] [address] [id number] [place] [address] Feb, [facility] [place] [facility] [address] [id number] [place] [address] Feb, [facility] [place] [facility] [address] [id number] [place] [address] Jan, [facility] [place] [facility] [address] [id number] [place] [address] Jan, [facility] [place] [facility] [address] [id number] [place] [address] Jan, [facility] [place] [facility] [address] [id number] [place] [address] Jan, [facility] [place] [facility] [address] [id number] [place] [address] Dec, [facility] [place] [facility] [address] [id number] [place] [address] Dec, [facility] [place] [facility] [address] [id number] [place] [address] Nov, [facility] [place] [facility] [address] [id number] [place] [address] Nov, [facility] [place] [facility] [address] [id number] [address] Nov, [facility] [id number] [address] Nov, [facility] [id number] [address] Nov, [facility] [id number], [place] [address] Oct, [facility] [id number], [place] [address] Oct, [facility] [id number] [place] [address] Oct, [facility] [id number], [place] [address] Oct, [facility] [id number], [place] [address] Oct, [facility] [id number], [place] [address] Oct, [facility] [id number], [place] [address] Oct, [facility] [address] [id number] [address] Oct, [facility] [address] [id number] [address] Sep, IMMUNIZATIONS No Known Immunizations SOCIAL HISTORY Never Assessed REASON FOR VISIT [facility] [place] OF CARE VITAL SIGNS MEDICATIONS Unknown Medications RESULTS No Results PROCEDURES No Known procedures INSTRUCTIONS MEDICATIONS ADMINISTERED No Known Medications MEDICAL (GENERAL) HISTORY Type Description Date 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
--- OUTSIDE RECORDS SUMMARY | 2019-04-16 15:28 | XMS REPORT ---
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 Name Role Phone Migration, Doctor Unavailable Unavailable PROBLEMS Type Condition ICD9-CM Code ENY13-VU Code Onset Dates Condition Status SNOMED Code Problem Coronary artery disease I25.10 Active 74354631 Problem Hypertension I10 Active 02558536 Problem Other chronic pain G89.29 Active 73312616 Problem Hyperlipidemia E78.5 Active 23065099 Problem Type 2 diabetes mellitus without complication, without long-term current use of insulin E11.9 Active 597365002 Problem Low back pain M54.5 Active 638784417 Problem Pharyngeal dysphagia R13.13 Active 05264419080905 Problem Anxiety F41.9 Active 35769081 Problem Peripheral vascular disease I73.9 Active 900726960 Problem Suprapubic catheter Z93.59 Active 200451930 Problem Reactive depression F32.9 Active 28893169 Problem Neurogenic bladder N31.9 Active 007776525 Problem Ventral hernia without obstruction or gangrene K43.9 Active 565869482 Problem Insomnia G47.00 Active 786461551 Problem Paroxysmal atrial fibrillation I48.0 Active 878622853 Problem 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 Active 47403260 Problem Encounter for suprapubic catheter care Z43.5 Active [id number] ALLERGIES No Information ENCOUNTERS Encounter Location Date Diagnosis Via [facility] [address] [place] [id number] Jun, Via [facility] [address] [place] [id number] March, [facility] [place] [address] [facility] [id number] [place] [address] Feb, Anxiety F41.9 [facility] [place] [address] [facility] [id number] [place] [address] Feb, Other chronic pain G89.29 Via [facility] [address] [place] [id number] Feb, Neurogenic bladder N31.9 and Suprapubic catheter Z93.59 [facility] [place] [address] [facility] [id number] [place] [address] Jan, Anxiety F41.9 [facility] [place] [address] [facility] [id number] [place] [address] Dec, Anxiety F41.9 [facility] [place] [address] [facility] [id number] [place] [address] Dec, Other chronic pain G89.29 and Anxiety F41.9 [facility] [place] [address] [facility] [id number] [place] [address] Dec, Via [facility] [address] [place] [id number] Dec, Neurogenic bladder N31.9 and Suprapubic catheter Z93.59 [facility] [place] [address] [facility] [id number] [place] [address] Nov, Other chronic pain G89.29 and Anxiety F41.9 [facility] [place] [address] [facility] [id number] [place] [address] Nov, Via [facility] [address] [place] [id number] Nov, Suprapubic catheter Z93.59 [facility] [place] [address] [facility] [id number] [place] [address] Oct, Other chronic pain G89.29 and Anxiety F41.9 [facility] [place] [address] [facility] [id number] [place] [address] Oct, [facility] [place] [address] [facility] [id number] [place] [address] Oct, Suprapubic catheter Z93.59 [facility] [place] [address] [facility] [id number] [place] [address] Oct, Via [facility] [address] [place] [id number] Oct, [facility] [place] [address] [id number] [place] [address] Oct, Anxiety F41.9 [facility] [place] [address] [id number] [place] [address] Oct, Anxiety F41.9 Via [facility] [address] [place] [id number] Oct, Other chronic pain G89.29 [facility] [place] [address] [id number] [place] [address] Sep, Other chronic pain G89.29 Via [facility] [address] [place] [id number] Sep, Suprapubic catheter Z93.59 and Cervicalgia M54.2 [facility] [place] [address] [id number] [place] [address] Sep, [facility] [place] [address] [facility] [id number] [place] [address] Sep, [facility] [place] [address] [facility] [id number] [place] [address] Sep, Via [facility] [address] [place] [id number] Aug, Cystitis N30.90 [facility] [place] [address] [facility] [id number] [place] [address] Aug, [facility] [place] [address] [facility] [id number] [place] [address] Aug, Other chronic pain G89.29 [facility] [place] [address] [id number] [place] [address] Aug, Via [facility] [address] [place] [id number] Aug, Encounter for suprapubic catheter care Z43.5 [facility] [place] [address] [id number] [place] [address] Jul, Via [facility] [address] [place] [id number] Jul, [facility] [place] [address] [facility] [id number] [place] [address] 11 Jul, 2018 Other chronic pain G89.29 [facility] [place] [address] [facility] [id number] [place] [address] Jul, [facility] [place] [address] [facility] [id number] [place] [address] Jul, Via [facility] [address] [place] [id number] Jun, 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 [facility] [place] [address] [facility] [id number] [place] [address] Jun, Other chronic pain G89.29 [facility] [place] [address] [place] [address] Jun, Via [facility] [address] [place] [id number] May, Anxiety F41.9 ; Type 2 diabetes mellitus without complication, without long-term current use of insulin E11.9 ; Hypertension I10 ; Low back pain M54.5 ; Paroxysmal atrial fibrillation I48.0 and 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 [facility] [place] [address] [id number] [place] [address] May, Other chronic pain G89.29 Via [facility] [employer] [facility] [address] [place] [id number] May, Low back pain M54.5 [facility] [place] [address] [facility] [id number] [place] [address] May, [facility] [place] [address] [place] [address] Apr, Other chronic pain G89.29 [facility] [place] [address] [facility] [id number] [place] [address] Apr, [facility] [place] [address] [place] [address] Apr, Via [facility] [address] [place] [id number] 19 Apr, 2018 Closed compression fracture of L3 lumbar vertebra with routine healing, subsequent encounter S32.030D Via [facility] [address] [place] [id number] 14 Apr, 2018 Low back pain M54.5 Via [facility] [address] [place] [id number] 12 Apr, 2018 Coccydynia M53.3 [facility] [place] [id number] [place] [address] March, [facility] [place] [address] [id number] [place] [address] March, Other chronic pain G89.29 [facility] [place] [address] [id number] [place] [address] March, [facility] [place] [address] [id number] [place] [address] March, [facility] [place] [address] [id number] [place] [address] Feb, [facility] [place] [address] [id number] [place] [address] Feb, Other chronic pain G89.29 Via [facility] [address] [place] [id number] Feb, Other chronic pain G89.29 and Anxiety F41.9 [facility] [place] [address] [id number] [place] [address] Feb, [facility] [place] [address] [id number] [place] [address] Jan, [facility] [place] [address] [id number] [place] [address] Jan, [facility] [place] [address] [facility] [id number] [place] [address] Jan, [facility] [place] [address] [id number] [place] [address] Jan, [facility] [place] [address] [facility] [id number] [place] [address] Dec, Via [facility] [address] [place] [id number] Dec, Peripheral vascular disease I73.9 ; 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 ; Other chronic pain G89.29 ; Anxiety F41.9 ; Reactive depression F32.9 ; Insomnia G47.00 and Type 2 diabetes mellitus without complication, without long-term current use of insulin E11.[address] [id number] [place] [address] Nov, [facility] [address] [id number] [place] [id number] Nov, Anxiety F41.9 [facility] [place] [address] [facility] [id number] [place] [address] Nov, [facility] [address] [id number] [place] [address] Nov, Anxiety F41.9 Via [facility] [address] [place] [id number] Nov, Status post surgery Z98.890 ; Confused R41.0 ; Anxiety F41.9 and Other chronic pain G89.29 [facility] [address] [id number] [place] [address] Nov, Other chronic pain G89.29 [facility] [place] [address] [facility] [id number] [place] [address] Oct, [facility] [address] [id number] [place] [id number] Oct, Other chronic pain G89.29 [facility] [place] [address] [facility] [id number] [place] [address] Oct, Anxiety F41.9 [facility] [address] [id number] [place] [address] Sep, Other chronic pain G89.29 [facility] [address] [id number] [place] [id number] Sep, Via [facility] [address] [place] [id number] Aug, Dysuria R30.0 and Anxiety F41.9 [facility] [place] [address] [facility] [id number] [place] [address] Aug, [facility] [address] [id number] [place] [address] Aug, Other chronic pain G89.29 [facility] [place] [address] [facility] [id number] [place] [address] Jul, Other chronic pain G89.29 [facility] [address] [id number] [place] [id number] Jun, [facility] [id number] [place] [id number] Jun, Other chronic pain G89.29 [facility] [place] [address] [place] [address] Jun, [facility] [place] [id number] [place] [address] May, Other chronic pain G89.29 [facility] [place] [address] [address] Apr, Other chronic pain G89.29 [facility] [address] [place] [id number] Apr, Reactive depression F32.9 and Pharyngeal dysphagia R13.13 [facility] [place] [address] [facility] [id number] [place] [address] Apr, Urinary tract infection without hematuria, site unspecified N39.0 [facility] [place] [address] [facility] [id number] [place] [address] March, Other chronic pain G89.29 [facility] [place] [address] [address] Feb, Other chronic pain G89.29 [facility] [place] [address] [address] Feb, [facility] [id number] [place] [id number] Feb, Via [facility] [address] [place] [id number] Feb, Dysuria R30.0 and Ventral hernia without obstruction or gangrene K43.9 [facility] [place] [id number] [place] [address] Jan, Other chronic pain G89.29 [facility] [id number] [place] [id number] Dec, Other chronic pain G89.29 [facility] [place] [id number] [place] [address] Nov, Other chronic pain G89.29 Via [facility] [address] [place] [id number] Nov, Lymphadenitis I88.9 [facility] [place] [id number] [place] [address] Nov, Other chronic pain G89.29 [facility] [place] [id number] [place] [address] Nov, [facility] [id number] [place] [id number] Nov, Other chronic pain G89.29 [facility] [address] [place] [id number] Oct, Low back pain M54.5 ; Hypertension I10 and Type 2 diabetes mellitus without complication, without long-term current use of insulin E11.9 [facility] [place] [id number] [place] [address] Oct, [facility] [place] [id number] [place] [address] Oct, [facility] [place] [address] [facility] [id number] [place] [address] Oct, [facility] [place] [address] [facility] [id number] [place] [address] Oct, [facility] [place] [address] [facility] [id number] [place] [address] Sep, [facility] [place] [address] [facility] [id number] [place] [address] Sep, [facility] [place] [address] [facility] [id number] [place] [address] Aug, Other chronic pain G89.29 [facility] [place] [address] [facility] [id number] [place] [address] Jul, [facility] [place] [address] [facility] [id number] [place] [address] Jul, [facility] [place] [address] [facility] [id number] [place] [address] Jul, [facility] [place] [address] [facility] [id number] [place] [address] Jun, [facility] [place] [address] [id number] [place] [address] Jun, Via [facility] [address] [place] [id number] Jun, Low back pain M54.5 ; Other chronic pain G89.29 and Coronary artery disease I25.10 [facility] [place] [address] [facility] [id number] [place] [address] Jun, [facility] [place] [address] [facility] [id number] [place] [address] May, [facility] [place] [address] [facility] [id number] [place] [address] May, [facility] [place] [address] [facility] [id number] [place] [address] May, Other chronic pain G89.29 [facility] [place] [address] [address] 13 May, 2016 [facility] [place] [address] [address] 28 Apr, 2016 [facility] [place] [address] [address] 17 Apr, 2016 Acute cystitis without hematuria N30.00 [facility] [place] [id number] [place] [address] 16 Apr, 2016 Acute cystitis without hematuria N30.00 ; Coronary artery disease I25.10 ; Low back pain M54.5 and Other chronic pain G89.29 [facility] [place] [address] [id number] [place] [address] 13 Apr, 2016 Other chronic pain G89.29 [facility] [place] [id number] [place] [address] March, Other chronic pain G89.29 [facility] [place] [address] [address] 18 Feb, 2016 [facility] [place] [id number] [place] [address] 15 Feb, 2016 Arthritis M19.90 [facility] [place] [address] [address] Feb, [facility] [place] [address] [address] 30 Jan, 2016 [facility] [place] [address] [address] Jan, [facility] [place] [address] [id number] [address] Jan, Other chronic pain G89.29 [facility] [place] [address] [address] 17 Jan, 2016 Hypertension I10 ; Coronary artery disease I25.10 and Insomnia G47.00 [facility] [place] [address] [address] Jan, [facility] [id number] [place] [address] Dec, Right hip pain M25.551 [facility] [place] [address] [id number] [address] Dec, [facility] [address] [id number] [address] Dec, [facility] [address] [place] [address], [place] [address] Dec, [facility] [id number] [place] [address] Dec, Other chronic pain G89.29 [facility] [id number] [place] [address] Dec, [facility] [address] [address] Nov, [facility] [id number] [place] [address] Nov, Other chronic pain G89.29 [facility] [address] [address] Nov, Right hip pain M25.551 and Coronary artery disease I25.10 [facility] [place] [address] [address] Nov, Other chronic pain G89.29 [facility] [place] [address] [address] Oct, [facility] [place] [id number] [address] Oct, [facility] [place] [id number] [address] Sep, [facility] [place] [id number] [address] Sep, [facility] [place] [id number] [place] [id number] Aug, [facility] [place] [id number] [place] [address] Aug, Hypertension I10 ; Coronary artery disease I25.10 and Arthritis M19.90 [facility] [place] [id number] [place] [address] Jun, [facility] [place] [id number] [place] [address] Jun, Essential hypertension, benign 401.1 ; Other chronic pain 338.29 and Chronic airway obstruction, not elsewhere classified 496 [facility] [place] [id number] [place] [address] Jun, [facility] [place] [id number] [address] Jun, [facility] [place] [id number] [place] [address] Jun, [facility] [place] [id number] [place] [address] May, [facility] [place] [id number] [address] May, [facility] [place] [id number] [address] Apr, [facility] [place] [id number] [place] [address], [place] [address] Apr, [facility] [place] [id number] [place] [address] Apr, [facility] [place] [id number] [place] [address] March, [facility] [place] [address] [id number] [place] [address] March, [facility] [place] [address] [id number] [place] [address] March, [facility] [place] [address] [id number] [place] [address] March, [facility] [place] [address] [id number] [place] [address] March, Sialadenitis 527.2 [facility] [place] [address] [id number] [place] [address] Feb, [facility] [place] [address] [id number] [place] [address] Feb, [facility] [place] [address] [id number] [place] [address] Feb, [facility] [place] [address] [id number] [place] [address] Feb, [facility] [place] [address] [id number] [place] [address] Feb, [facility] [place] [address] [id number] [place] [address] Jan, [facility] [place] [address] [id number] [place] [address] Jan, [facility] [place] [address] [id number] [place] [address] Jan, [facility] [address] [id number] [place] [address] Jan, [facility] [place] [address] [id number] [place] [address] Jan, [facility] [address] [id number] [place] [address] Jan, [facility] [place] [address] [id number] [place] [address] Dec, [facility] [place] [facility] [address] [id number] [place] [address] Dec, [facility] [place] [facility] [address] [id number] [place] [address] Dec, 2014 [facility] [place] [facility] [address] [id number] [place] [address] Dec, 2014 [facility] [place] [facility] [address] [id number] [place] [address] Dec, [facility] [place] [facility] [address] [id number] [place] [address] Dec, [facility] [place] [facility] [address] [id number] [place] [address] Nov, [facility] [place] [facility] [address] [id number] [place] [address] Nov, [facility] [place] [facility] [address] [id number] [place] [address] Nov, [facility] [place] [facility] [address] [id number] [place] [address] Nov, [facility] [place] [facility] [address] [id number] [place] [address] Nov, [facility] [place] [facility] [address] [id number] [place] [address] Nov, [facility] [place] [facility] [address] [id number] [place] [address] Nov, [facility] [place] [facility] [address] [id number] [place] [address] Nov, [facility] [place] [facility] [address] [id number] [place] [address] Nov, [facility] [place] [facility] [address] [id number] [place] [address] Nov, [facility] [place] [facility] [address] [id number] [place] [address] Nov, [facility] [place] [facility] [address] [id number] [place] [address] Nov, [facility] [place] [facility] [address] [id number] [place] [address] Nov, [facility] [place] [facility] [address] [id number] [place] [address] Nov, [facility] [place] [facility] [address] [id number] [place] [address] Oct, [facility] [place] [facility] [address] [id number] [place] [address] Oct, [facility] [place] [facility] [address] [id number] [place] [address] Oct, [facility] [place] [facility] [address] [id number] [place] [address] Oct, [facility] [place] [facility] [address] [id number] [place] [address] Oct, [facility] [place] [facility] [address] [id number] [place] [address] Oct, [facility] [place] [facility] [address] [id number] [place] [address] 17 Oct, 2014 [facility] [place] [facility] [address] [id number] [place] [address] Oct, [facility] [place] [facility] [address] [id number] [place] [address] Oct, [facility] [place] [facility] [address] [id number] [place] [address] Sep, [facility] [place] [facility] [address] [id number] [place] [address] Sep, [facility] [place] [facility] [address] [id number] [place] [address] Sep, [facility] [place] [facility] [address] [id number] [place] [address] Sep, [facility] [place] [facility] [address] [id number] [place] [address] Sep, [facility] [place] [facility] [address] [id number] [place] [address] Sep, [facility] [place] [facility] [address] [id number] [place] [address] Sep, [facility] [place] [facility] [address] [id number] [place] [address] Sep, [facility] [place] [facility] [address] [id number] [place] [address] Sep, [facility] [place] [facility] [address] [id number] [place] [address] Sep, [facility] [place] [facility] [address] [id number] [place] [address] Sep, [facility] [place] [facility] [address] [id number] [place] [address] Sep, [facility] [place] [facility] [address] [id number] [place] [address] Aug, [facility] [place] [facility] [address] [id number] [place] [address] Aug, [facility] [place] [facility] [address] [id number] [place] [address] Aug, [facility] [place] [facility] [address] [id number] [place] [address] Aug, [facility] [place] [facility] [address] [id number] [place] [address] Aug, [facility] [place] [facility] [address] [id number] [place] [address] Aug, [facility] [place] [facility] [address] [id number] [place] [address] 17 Aug, 2014 [facility] [place] [facility] [address] [id number] [place] [address] 17 Aug, 2014 [facility] [place] [facility] [address] [id number] [place] [address] 30 Jul, 2013 [facility] [place] [facility] [address] [id number] [place] [address] 30 Jul, 2013 [facility] [place] [facility] [address] [id number] [place] [address] 30 Jul, 2013 [facility] [place] [facility] [address] [id number] [place] [address] 30 Jul, 2013 [facility] [place] [facility] [address] [id number] [place] [address] 25 Jul, 2013 [facility] [place] [facility] [address] [id number] [place] [address] 25 Jul, 2013 [facility] [place] [facility] [address] [id number] [place] [address] 15 Jul, 2014 [facility] [place] [facility] [address] [id number] [place] [address] 15 Jul, 2014 [facility] [place] [facility] [address] [id number] [place] [address] 11 Jul, 2014 [facility] [place] [facility] [address] [id number] [place] [address] Jul, [facility] [place] [facility] [address] [id number] [place] [address] Jun, [facility] [place] [facility] [address] [id number] [place] [address] Jun, [facility] [place] [facility] [address] [id number] [place] [address] Jun, [facility] [place] [facility] [address] [id number] [place] [address] Jun, [facility] [place] [facility] [address] [id number] [place] [address] Jun, [facility] [place] [facility] [address] [id number] [place] [address] Jun, [facility] [place] [facility] [address] [id number] [place] [address] Jun, [facility] [place] [facility] [address] [id number] [place] [address] Jun, [facility] [place] [facility] [address] [id number] [place] [address] Jun, [facility] [place] [facility] [address] [id number] [place] [address] Jun, [facility] [place] [facility] [address] [id number] [place] [address] Jun, [facility] [place] [facility] [address] [id number] [place] [address] Jun, [facility] [place] [facility] [address] [id number] [place] [address] Jun, [facility] [place] [facility] [address] [id number] [place] [address] Jun, [facility] [place] [facility] [address] [id number] [place] [address] Jun, [facility] [place] [facility] [address] [id number] [place] [address] Jun, [facility] [place] [facility] [address] [id number] [place] [address] Jun, [facility] [place] [facility] [address] [id number] [place] [address] Jun, [facility] [place] [facility] [address] [id number] [place] [address] Jun, [facility] [place] [facility] [address] [id number] [place] [address] Jun, [facility] [place] [facility] [address] [id number] [place] [address] Jun, [facility] [place] [facility] [address] [id number] [place] [address] Jun, [facility] [place] [facility] [address] [id number] [place] [address] May, [facility] [place] [facility] [address] [id number] [place] [address] May, [facility] [place] [facility] [address] [id number] [place] [address] May, [facility] [place] [facility] [address] [id number] [place] [address] May, [facility] [place] [facility] [address] [id number] [place] [address] May, [facility] [place] [facility] [address] [id number] [place] [address] May, [facility] [place] [facility] [address] [id number] [place] [address] May, [facility] [place] [facility] [address] [id number] [place] [address] May, [facility] [place] [facility] [address] [id number] [place] [address] May, [facility] [place] [facility] [address] [id number] [place] [address] May, [facility] [place] [facility] [address] [id number] [place] [address] May, [facility] [place] [facility] [address] [id number] [place] [address] May, [facility] [place] [facility] [address] [id number] [place] [address] May, [facility] [place] [facility] [address] [id number] [place] [address] Apr, [facility] [place] [facility] [address] [id number] [place] [address] Apr, [facility] [place] [facility] [address] [id number] [place] [address] Apr, [facility] [place] [facility] [address] [id number] [place] [address] Apr, [facility] [place] [facility] [address] [id number] [place] [address] Apr, [facility] [place] [facility] [address] [id number] [place] [address] Apr, [facility] [place] [facility] [address] [id number] [place] [address] Apr, [facility] [place] [facility] [address] [id number] [place] [address] Apr, [facility] [place] [facility] [address] [id number] [place] [address] Apr, [facility] [place] [facility] [address] [id number] [place] [address] March, [facility] [place] [facility] [address] [id number] [place] [address] March, [facility] [place] [facility] [address] [id number] [place] [address] March, [facility] [place] [facility] [address] [id number] [place] [address] March, [facility] [place] [facility] [address] [id number] [place] [address] March, [facility] [place] [facility] [address] [id number] [place] [address] March, [facility] [place] [facility] [address] [id number] [place] [address] March, [facility] [place] [facility] [address] [id number] [place] [address] March, [facility] [place] [facility] [address] [id number] [place] [address] March, [facility] [place] [facility] [address] [id number] [place] [address] March, [facility] [place] [facility] [address] [id number] [place] [address] March, [facility] [place] [facility] [address] [id number] [place] [address] March, [facility] [place] [facility] [address] [id number] [place] [address] March, [facility] [place] [facility] [address] [id number] [place] [address] March, [facility] [place] [facility] [address] [id number] [place] [address] March, [facility] [place] [facility] [address] [id number] [place] [address] March, [facility] [place] [facility] [address] [id number] [place] [address] March, [facility] [place] [facility] [address] [id number] [place] [address] March, [facility] [place] [facility] [address] [id number] [place] [address] March, [facility] [place] [facility] [address] [id number] [place] [address] March, [facility] [place] [facility] [address] [id number] [place] [address] Feb, [facility] [place] [facility] [address] [id number] [place] [address] Feb, [facility] [place] [facility] [address] [id number] [place] [address] 24 Feb, 2014 [facility] [place] [facility] [address] [id number] [place] [address] Feb, [facility] [place] [facility] [address] [id number] [place] [address] Feb, [facility] [place] [facility] [address] [id number] [place] [address] Feb, [facility] [place] [facility] [address] [id number] [place] [address] Feb, [facility] [place] [facility] [address] [id number] [place] [address] Feb, [facility] [place] [facility] [address] [id number] [place] [address] Jan, [facility] [place] [facility] [address] [id number] [place] [address] Jan, [facility] [place] [facility] [address] [id number] [place] [address] Jan, [facility] [place] [facility] [address] [id number] [place] [address] Jan, [facility] [place] [facility] [address] [id number] [place] [address] Jan, [facility] [place] [facility] [address] [id number] [place] [address] Jan, [facility] [place] [facility] [address] [id number] [place] [address] Jan, [facility] [place] [facility] [address] [id number] [place] [address] Jan, [facility] [place] [facility] [address] [id number] [place] [address] Jan, [facility] [place] [facility] [address] [id number] [place] [address] Jan, [facility] [place] [facility] [address] [id number] [place] [address] Dec, [facility] [place] [facility] [address] [id number] [place] [address] Dec, [facility] [place] [facility] [address] [id number] [place] [address] Dec, [facility] [place] [facility] [address] [id number] [place] [address] Dec, [facility] [place] [facility] [address] [id number] [place] [address] Dec, [facility] [place] [facility] [address] [id number] [place] [address] Dec, [facility] [place] [facility] [address] [id number] [place] [address] Dec, [facility] [place] [facility] [address] [id number] [place] [address] Dec, [facility] [place] [facility] [address] [id number] [place] [address] Nov, [facility] [place] [facility] [address] [id number] [place] [address] Nov, [facility] [place] [facility] [address] [id number] [place] [address] Nov, [facility] [place] [facility] [address] [id number] [place] [address] Nov, [facility] [place] [facility] [address] [id number] [place] [address] Nov, [facility] [place] [facility] [address] [id number] [place] [address] Nov, [facility] [place] [facility] [address] [id number] [place] [address] Nov, [facility] [place] [facility] [address] [id number] [place] [address] Nov, [facility] [address] [id number] [place] [address] Nov, [facility] [place] [facility] [address] [id number] [place] [address] Nov, [facility] [place] [facility] [address] [id number] [place] [address] Nov, [facility] [place] [facility] [address] [id number] [place] [address] Nov, [facility] [place] [facility] [address] [id number] [place] [address] Nov, [facility] [place] [facility] [address] [id number] [place] [address] Oct, [facility] [address] [id number] [place] [address] 30 Oct, 2013 [facility] [place] [facility] [address] [id number] [place] [address] Oct, [facility] [place] [facility] [address] [id number] [place] [address] Oct, [facility] [place] [facility] [address] [id number] [place] [address] Oct, [facility] [place] [facility] [address] [id number] [place] [address] Oct, [facility] [place] [facility] [address] [id number] [place] [address] 18 Oct, 2013 [facility] [place] [facility] [address] [id number] [place] [address] 18 Oct, 2013 [facility] [place] [facility] [address] [id number] [place] [address] 17 Oct, 2013 [facility] [place] [facility] [address] [id number] [place] [address] 17 Oct, 2013 [facility] [place] [facility] [address] [id number] [place] [address] Oct, [facility] [place] [facility] [address] [id number] [place] [address] Oct, [facility] [place] [facility] [address] [id number] [place] [address] Oct, [facility] [place] [facility] [address] [id number] [place] [address] Oct, [facility] [place] [facility] [address] [id number] [place] [address] Sep, [facility] [place] [facility] [address] [id number] [place] [address] Sep, [facility] [place] [facility] [address] [id number] [place] [address] Sep, [facility] [place] [facility] [address] [id number] [place] [address] Sep, [facility] [place] [facility] [address] [id number] [place] [address] Sep, [facility] [place] [facility] [address] [id number] [place] [address] Sep, [facility] [place] [facility] [address] [id number] [place] [address] Sep, [facility] [place] [facility] [address] [id number] [place] [address] Sep, [facility] [place] [facility] [address] [id number] [place] [address] Sep, [facility] [place] [facility] [address] [id number] [place] [address] Sep, [facility] [place] [facility] [address] [id number] [place] [address] Aug, [facility] [place] [facility] [address] [id number] [place] [address] 24 Aug, 2013 [facility] [place] [facility] [address] [id number] [place] [address] 24 Aug, 2013 [facility] [place] [facility] [address] [id number] [place] [address] 24 Aug, 2013 [facility] [place] [facility] [address] [id number] [place] [address] Aug, [facility] [place] [facility] [address] [id number] [place] [address] Aug, 2012 [facility] [place] [facility] [address] [id number] [place] [address] Aug, [facility] [place] [facility] [address] [id number] [place] [address] Aug, [facility] [place] [facility] [address] [id number] [place] [address] Aug, [facility] [place] [facility] [address] [id number] [place] [address] 22 Aug, 2013 [facility] [place] [facility] [address] [id number] [place] [address] 18 Aug, 2013 [facility] [place] [facility] [address] [id number] [place] [address] 18 Aug, 2013 [facility] [place] [facility] [address] [id number] [place] [address] 18 Aug, 2013 [facility] [place] [facility] [address] [id number] [place] [address] 18 Aug, 2012 [facility] [place] [facility] [address] [id number] [place] [address] 17 Aug, 2012 [facility] [place] [facility] [address] [id number] [place] [address] 14 Aug, 2012 [facility] [place] [facility] [address] [id number] [place] [address] 14 Aug, 2012 [facility] [place] [facility] [address] [id number] [place] [address] Aug, [facility] [place] [facility] [address] [id number] [place] [address] 20 Jul, 2013 [facility] [place] [facility] [address] [id number] [place] [address] 19 Jul, 2013 [facility] [place] [facility] [address] [id number] [place] [address] 18 Jul, 2013 [facility] [place] [facility] [address] [id number] [place] [address] Jul, [facility] [place] [facility] [address] [id number] [place] [address] Jul, [facility] [place] [facility] [address] [id number] [place] [address] Jun, [facility] [place] [facility] [address] [id number] [place] [address] Jun, [facility] [address] [id number] [place] [address] Jun, [facility] [place] [facility] [address] [id number] [place] [address] Jun, [facility] [address] [id number] [place] [address] Jun, [facility] [place] [facility] [address] [id number] [place] [address] Jun, [facility] [place] [facility] [address] [id number] [place] [address] Jun, [facility] [place] [facility] [address] [id number] [place] [address] Jun, [facility] [place] [facility] [address] [id number] [place] [address] Jun, [facility] [place] [facility] [address] [id number] [place] [address] Jun, [facility] [place] [facility] [address] [id number] [place] [address] May, [facility] [place] [facility] [address] [id number] [place] [address] May, [facility] [place] [facility] [address] [id number] [place] [address] May, [facility] [place] [facility] [address] [id number] [place] [address] May, [facility] [place] [facility] [address] [id number] [place] [address] May, [facility] [place] [facility] [address] [id number] [place] [address] May, [facility] [place] [facility] [address] [id number] [place] [address] May, [facility] [place] [facility] [address] [id number] [place] [address] May, [facility] [place] [facility] [address] [id number] [place] [address] May, [facility] [place] [facility] [address] [id number] [place] [address] Apr, [facility] [place] [facility] [address] [id number] [place] [address] Apr, [facility] [place] [facility] [address] [id number] [place] [address] Apr, [facility] [place] [facility] [address] [id number] [place] [address] Apr, [facility] [place] [facility] [address] [id number] [place] [address] Apr, [facility] [place] [facility] [address] [id number] [place] [address] Apr, [facility] [place] [facility] [address] [id number] [place] [address] Apr, [facility] [address] [id number] [place] [address] March, [facility] [facility] [address] [id number] [place] [address] Feb, [facility] [place] [address] [id number] [place] [address] Feb, [facility] [place] [address] [id number] [place] [address] Feb, [facility] [place] [address] [id number] [place] [address] Jan, [facility] [place] [address] [id number] [place] [address] Jan, [facility] [address] [id number] [place] [address] Jan, [facility] [place] [address] [id number] [place] [address] 14 Jan, 2013 [facility] [place] [address] [id number] [place] [address] Jan, [facility] [place] [address] [facility] [id number] [place] [address] Jan, [facility] [address] [id number] [place] [address] Jan, [facility] [address] [id number] [place] [address] Jan, [facility] [place] [address] [id number] [place] [address] Dec, [facility] [place] [facility] [address] [id number] [place] [address] Dec, [facility] [place] [address] [facility] [id number] [place] [address] Dec, [facility] [address] [id number] [place] [address] 11 Dec, 2012 [facility] [place] [address] [id number] [place] [address] 07 Dec, 2012 [facility] [place] [facility] [address] [id number] [place] [address] 06 Dec, 2012 [facility] [place] [facility] [address] [id number] [place] [address] 05 Dec, 2012 [facility] [place] [address] [id number] [place] [address] Nov, [facility] [place] [facility] [address] [id number] [place] [address] 24 Nov, 2012 [facility] [address] [id number] [place] [address] Nov, [facility] [address] [id number] [place] [address] 15 Nov, 2012 [facility] [place] [facility] [address] [id number] [place] [address] Nov, [facility] [address] [id number] [place] [address] Nov, [facility] [address] [id number] [place] [address] Nov, [facility] [facility] [address] [id number] [place] [address] Oct, [facility] [place] [facility] [address] [id number] [place] [address] Oct, [facility] [place] [facility] [address] [id number] [place] [address] Oct, [facility] [place] [facility] [address] [id number] [place] [address] Oct, [facility] [place] [facility] [address] [id number] [place] [address] Oct, [facility] [place] [facility] [address] [id number] [place] [address] Oct, [facility] [place] [facility] [address] [id number] [place] [address] Oct, [facility] [place] [facility] [address] [id number] [place] [address] Oct, [facility] [place] [facility] [address] [id number] [place] [address] Oct, [facility] [place] [facility] [address] [id number] [place] [address] Oct, [facility] [place] [facility] [address] [id number] [place] [address] Oct, [facility] [place] [facility] [address] [facility] [id number] [place] [address] Oct, [facility] [place] [facility] [address] [id number] [place] [address] Sep, [facility] [place] [facility] [address] [id number] [place] [address] Sep, [facility] [place] [facility] [address] [facility] [id number] [place] [address] Sep, [facility] [place] [facility] [address] [id number] [place] [address] Sep, [facility] [place] [facility] [address] [id number] [place] [address] Sep, [facility] [place] [facility] [address] [id number] [place] [address] Sep, [facility] [place] [facility] [address] [id number] [place] [address] Sep, [facility] [place] [facility] [address] [facility] [id number] [place] [address] Sep, [facility] [place] [facility] [address] [id number] [place] [address] Sep, [facility] [place] [facility] [address] [id number] [place] [address] Sep, [facility] [place] [facility] [address] [id number] [place] [address] Sep, [facility] [place] [facility] [address] [id number] [place] [address] Aug, [facility] [place] [facility] [address] [id number] [place] [address] Aug, [facility] [place] [facility] [address] [id number] [place] [address] Aug, [facility] [place] [facility] [address] [id number] [place] [address] Aug, [facility] [place] [facility] [address] [id number] [place] [address] Aug, [facility] [place] [facility] [address] [id number] [place] [address] Aug, [facility] [place] [facility] [address] [id number] [place] [address] Aug, [facility] [place] [facility] [address] [id number] [place] [address] Aug, [facility] [place] [facility] [address] [id number] [place] [address] Aug, [facility] [place] [facility] [address] [id number] [place] [address] Aug, [facility] [place] [facility] [address] [id number] [place] [address] 22 Jul, 2012 [facility] [place] [facility] [address] [id number] [place] [address] 20 Jul, 2012 [facility] [place] [facility] [address] [id number] [place] [address] Jul, [facility] [place] [facility] [address] [id number] [place] [address] Jul, [facility] [place] [facility] [address] [id number] [place] [address] Jun, [facility] [place] [facility] [address] [id number] [place] [address] Jun, [facility] [place] [facility] [address] [id number] [place] [address] Jun, [facility] [place] [facility] [address] [id number] [place] [address] Jun, [facility] [place] [facility] [address] [id number] [place] [address] Jun, [facility] [place] [facility] [address] [id number] [place] [address] Jun, [facility] [place] [facility] [address] [id number] [place] [address] Jun, [facility] [place] [facility] [address] [id number] [place] [address] May, [facility] [place] [facility] [address] [id number] [place] [address] May, [facility] [place] [facility] [address] [id number] [place] [address] May, [facility] [place] [facility] [address] [id number] [place] [address] May, [facility] [place] [facility] [address] [id number] [place] [address] May, [facility] [place] [facility] [address] [id number] [place] [address] Apr, [facility] [place] [facility] [address] [id number] [place] [address] Apr, [facility] [place] [facility] [address] [id number] [place] [address] 13 Apr, 2012 [facility] [address] [id number] [place] [address] Apr, [facility] [place] [facility] [address] [id number] [place] [address] Apr, [facility] [place] [facility] [address] [id number] [place] [address] March, [facility] [place] [facility] [address] [id number] [place] [address] March, [facility] [address] [id number] [place] [address] March, [facility] [place] [facility] [address] [id number] [place] [address] March, [facility] [place] [address] [id number] [place] [address] March, [facility] [place] [address] [id number] [place] [address] March, [facility] [place] [facility] [address] [id number] [place] [address] March, [facility] [facility] [address] [id number] [place] [address] March, [facility] [place] [facility] [address] [id number] [place] [address] March, [facility] [place] [facility] [address] [id number] [place] [address] March, [facility] [place] [facility] [address] [id number] [place] [address] Feb, [facility] [place] [facility] [address] [id number] [place] [address] Feb, [facility] [place] [facility] [address] [id number] [place] [address] Feb, [facility] [place] [facility] [address] [id number] [place] [address] Feb, [facility] [place] [facility] [address] [id number] [place] [address] Feb, [facility] [place] [facility] [address] [id number] [place] [address] Feb, [facility] [place] [facility] [address] [id number] [place] [address] Feb, [facility] [place] [facility] [address] [id number] [place] [address] Feb, [facility] [place] [facility] [address] [id number] [place] [address] Feb, [facility] [place] [facility] [address] [id number] [place] [address] Jan, [facility] [place] [facility] [address] [id number] [place] [address] Jan, [facility] [place] [facility] [address] [id number] [place] [address] Jan, [facility] [place] [facility] [address] [id number] [place] [address] Jan, [facility] [facility] [address] [id number] [place] [address] Dec, [facility] [place] [facility] [address] [id number] [place] [address] Dec, [facility] [place] [facility] [address] [id number] [place] [address] Nov, [facility] [place] [facility] [address] [id number] [place] [address] Nov, [facility] [place] [facility] [address] [id number] [place] [address] Nov, [facility] [place] [facility] [address] [id number] [place] [address] Nov, [facility] [address] [facility] [id number] [place] [address] Nov, [facility] [address] [facility] [id number] [place] [address] Oct, [facility] [address] [facility] [id number] [place] [address] Oct, [facility] [address] [facility] [id number] [place] [address] Oct, [facility] [address] [facility] [id number] [place] [address] Oct, [facility] [address] [facility] [id number] [place] [address] Oct, [facility] [id number] [place] [address] Oct, [facility] [id number] [place] [address] Oct, [facility] [address] [id number] [place] [address] Oct, [facility] [address] [id number] [place] [address] Sep, IMMUNIZATIONS No Known Immunizations SOCIAL HISTORY Never Assessed REASON FOR VISIT EMR-[facility] PLAN OF CARE VITAL SIGNS MEDICATIONS Unknown Medications RESULTS No Results PROCEDURES No Known procedures INSTRUCTIONS MEDICATIONS ADMINISTERED No Known Medications MEDICAL (GENERAL) HISTORY Type Description Date 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
--- OUTSIDE RECORDS SUMMARY | 2019-04-16 15:29 | XMS REPORT ---
Author Author Migration, Doctor Organization [facility] Address Unknown Phone Unavailable Care Team Providers Care Lightout Examiner Name Role Phone Migration, Doctor Unavailable Unavailable PROBLEMS Type Condition ICD9-CM Code YLO68-TJ Code Onset Dates Condition Status SNOMED Code Problem Coronary artery disease I25.10 Active 58589293 Problem Hypertension I10 Active 18253198 Problem Other chronic pain G89.29 Active 71418161 Problem Hyperlipidemia E78.5 Active 80586916 Problem Type 2 diabetes mellitus without complication, without long-term current use of insulin E11.9 Active 665111214 Problem Low back pain M54.5 Active 877978736 Problem Pharyngeal dysphagia R13.13 Active [id number] Problem Anxiety F41.9 Active 92587681 Problem Peripheral vascular disease I73.9 Active 637186972 Problem Suprapubic catheter Z93.59 Active 983226377 Problem Reactive depression F32.9 Active 47151336 Problem Neurogenic bladder N31.9 Active 608033574 Problem Ventral hernia without obstruction or gangrene K43.9 Active 717389450 Problem Insomnia G47.00 Active 265980783 Problem Paroxysmal atrial fibrillation I48.0 Active 247189164 Problem 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 Active 94275007 Problem Encounter for suprapubic catheter care Z43.5 Active [id number] ALLERGIES No Information ENCOUNTERS Encounter Location Date Diagnosis [facility] [address] [place] [id number] Jun, [facility] [address] [place] [id number] March, [facility] [address] [facility] [id number] [address] Feb, Anxiety F41.9 [facility] [address] [facility] [id number] [address] Feb, Other chronic pain G89.29 [facility] [address] [place] [id number] Feb, Neurogenic bladder N31.9 and Suprapubic catheter Z93.59 [facility] [address] [facility] [id number], [place] [address] Jan, Anxiety F41.9 [facility] [address] [facility] [id number] [place] [address] Dec, Anxiety F41.9 [facility] [address] [facility] [id number] [place] [address] Dec, Other chronic pain G89.29 and Anxiety F41.9 [facility] [address] [facility] [id number] [place] [address] Dec, [facility] [employer] [address] [place] [id number] Dec, Neurogenic bladder N31.9 and Suprapubic catheter Z93.59 [facility] [address] [facility] [id number] [place] [address] Nov, Other chronic pain G89.29 and Anxiety F41.9 [facility] [address] [facility] [id number] [address] Nov, [facility] [employer] [address] [place] [id number] Nov, Suprapubic catheter Z93.59 [facility] [address] [facility] [id number] [address] Oct, Other chronic pain G89.29 and Anxiety F41.9 [facility] [address] [facility] [id number], [place] [address] Oct, [facility] [address] [facility] [id number] [place] [address] Oct, Suprapubic catheter Z93.59 [facility] [address] [facility] [id number], [place] [address] Oct, [facility] [employer] [address] [place] [id number] Oct, [facility] [address] [id number] [address] Oct, Anxiety F41.9 [facility] [address] [id number] [place] [address] Oct, Anxiety F41.9 [facility] [employer] [address] [place] [id number] Oct, Other chronic pain G89.29 [facility] [address] [id number] [place] [address] Sep, Other chronic pain G89.29 [facility] [employer] [address] [place] [id number] Sep, Suprapubic catheter Z93.59 and Cervicalgia M54.2 [facility] [address] [id number], [place] [address] Sep, [facility] [address] [facility] [id number] [place] [address] Sep, [facility] [address] [facility] [id number], [place] [address] Sep, [facility] [employer] [address] [place] [id number] Aug, Cystitis N30.90 [facility] [address] [facility] [id number], [place] [address] Aug, [facility] [address] [facility] [id number] [place] [address] Aug, Other chronic pain G89.29 [facility] [address] [id number], [place] [address] Aug, [facility] [employer] [address] [place] [id number] Aug, Encounter for suprapubic catheter care Z43.5 [facility] [address] [id number], [place] [address] Jul, [facility] [employer] [address] [place] [id number] Jul, [facility] [address] [facility] [id number], [place] [address] 11 Jul, 2018 Other chronic pain G89.29 [facility] [address] [facility] [id number], [place] [address] Jul, [facility] [address] [facility] [id number], [place] [address] Jul, [facility] [address] [place] [id number] Jun, 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 [facility] [address] [facility] [id number] [address] Jun, Other chronic pain G89.29 [facility] [address]00565100[place] [address] Jun, [facility] [address] [place] [id number] May, Anxiety F41.9 ; Type 2 diabetes mellitus without complication, without long-term current use of insulin E11.9 ; Hypertension I10 ; Low back pain M54.5 ; Paroxysmal atrial fibrillation I48.0 and 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 [facility] [address] [id number] [address] May, Other chronic pain G89.29 [facility] [employer] [facility] [address] [place] [id number] May, Low back pain M54.5 [facility] [address] [facility] [id number], [place] [address] May, [facility] [address]00565100[place] [address] Apr, Other chronic pain G89.29 [facility] [address] [facility] [id number], [place] [address] Apr, [facility] [address]00565100[place] [address] Apr, Via [facility] [address] [place] [id number] 19 Apr, 2018 Closed compression fracture of L3 lumbar vertebra with routine healing, subsequent encounter S32.030D [facility] [address] [place] [id number] 14 Apr, 2018 Low back pain M54.5 [facility] [address] [place] [id number] 12 Apr, 2018 Coccydynia M53.3 [facility] [address] [id number] [place] [address] March, [facility] [address] [id number] [place] [address] March, Other chronic pain G89.29 [facility] [address] [id number] [place] [address] March, [facility] [address] [id number] [place] [address] March, [facility] [address] [id number] [place] [address] Feb, [facility] [address] [id number] [place] [address] Feb, Other chronic pain G89.29 [facility] [address] [place] [id number] Feb, Other chronic pain G89.29 and Anxiety F41.9 [facility] [address] [id number] [place] [address] Feb, [facility] [address] [id number] [place] [address] Jan, [facility] [address] [id number] [place] [address] Jan, [facility] [address] [facility] [id number], [place] [address] Jan, [facility] [address] [id number] [place] [address] Jan, [facility] [address] [facility] [id number] [address] Dec, Via [facility] [address] [place] [id number] Dec, Peripheral vascular disease I73.9 ; 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 ; Other chronic pain G89.29 ; Anxiety F41.9 ; Reactive depression F32.9 ; Insomnia G47.00 and Type 2 diabetes mellitus without complication, without long-term current use of insulin E11.[address] [id number] [place] [address] Nov, [facility] [address] [id number] [address] Nov, Anxiety F41.9 [facility] [address] [facility] [id number], [place] [address] Nov, [facility] [address] [id number] [id number] Nov, Anxiety F41.9 [facility] [address] [place] [id number] Nov, Status post surgery Z98.890 ; Confused R41.0 ; Anxiety F41.9 and Other chronic pain G89.29 [facility] [address] [id number] [id number] Nov, Other chronic pain G89.29 [facility] [address] [facility] [id number], [place] [address] Oct, [facility] [place] [address] [id number][place] [id number] Oct, Other chronic pain G89.29 [facility] [address] [facility] [id number] [address] Oct, Anxiety F41.9 [facility] [place] [address] [id number] [address] Sep, Other chronic pain G89.29 [facility] [address] [id number] [id number] Sep, [facility] [address] [place] [id number] Aug, Dysuria R30.0 and Anxiety F41.9 [facility] [address] [facility] [id number], [place] [address] Aug, [facility] [address] [id number][place] [id number] Aug, Other chronic pain G89.29 [facility] [address] [facility] [id number] [address] Jul, Other chronic pain G89.29 [facility] [address] [id number] [id number] Jun, [facility] [id number] [place] [id number] Jun, Other chronic pain G89.29 [facility] [address]00565100[place] [address] Jun, [facility] [address] [place] [address] May, Other chronic pain G89.29 [facility] [address]00565100[place] [address] Apr, Other chronic pain G89.29 [facility] [employer] [address] [place] [id number] Apr, Reactive depression F32.9 and Pharyngeal dysphagia R13.13 [facility] [address] [facility] [id number] [address] Apr, Urinary tract infection without hematuria, site unspecified N39.0 [facility] [address] [facility] [id number] [address] March, Other chronic pain G89.29 [facility] [address]00565100[place] [address] Feb, Other chronic pain G89.29 [facility] [address]00565100[place], [place] [address] Feb, [facility] [id number] [place] [id number] Feb, [facility] [employer] [facility] [address] [place] [id number] Feb, Dysuria R30.0 and Ventral hernia without obstruction or gangrene K43.9 [facility] [address] [place] [address] Jan, Other chronic pain G89.29 [facility] [id number] [place] [id number] Dec, Other chronic pain G89.29 [facility] [id number] [place] [address] Nov, Other chronic pain G89.29 [facility] [address] [place] [id number] Nov, Lymphadenitis I88.9 [facility] [address] [place] [address] Nov, Other chronic pain G89.29 [facility] [address] [place] [address] Nov, [facility] [id number] [place] [id number] Nov, Other chronic pain G89.29 [facility] [address] [place] [id number] Oct, Low back pain M54.5 ; Hypertension I10 and Type 2 diabetes mellitus without complication, without long-term current use of insulin E11.9 [facility] [address] [place] [address] Oct, [facility] [address] [place] [address] Oct, [facility] [address] [facility] [id number], [place] [address] Oct, [facility] [address] [facility] [id number], [place] [address] Oct, [facility] [address] [facility] [id number], [place] [address] Sep, [facility] [address] [facility] [id number], [place] [address] Sep, [facility] [address] [facility] [id number], [place] [address] Aug, Other chronic pain G89.29 [facility] [address] [facility] [id number], [place] [address] Jul, [facility] [address] [facility] [id number], [place] [address] Jul, [facility] [address] [facility] [id number], [place] [address] Jul, [facility] [address] [facility] [id number], [place] [address] Jun, [facility] [address] [id number] [address] Jun, [facility] [address] [facility] [address] [place] [id number] Jun, Low back pain M54.5 ; Other chronic pain G89.29 and Coronary artery disease I25.10 [facility] [address] [facility] [id number], [place] [address] Jun, [facility] [address] [facility] [id number] [address] May, [facility] [address] [facility] [id number], [place] [address] May, [facility] [address] [facility] [id number], [place] [address] May, Other chronic pain G89.29 [facility] [address]00565100[place] [address] 13 May, 2016 [facility] [address]00565100[place] [address] 28 Apr, 2016 [facility] [address]00565100[place], [place] [address] 17 Apr, 2016 Acute cystitis without hematuria N30.00 [facility] [id number] [place] [address] 16 Apr, 2016 Acute cystitis without hematuria N30.00 ; Coronary artery disease I25.10 ; Low back pain M54.5 and Other chronic pain G89.29 [facility] [address] [id number], [place] [address] 13 Apr, 2016 Other chronic pain G89.29 [facility] [id number] [place] [address] March, Other chronic pain G89.29 [facility] [address]00565100[place] [address] 18 Feb, 2016 [facility] [id number] [place] [address] 15 Feb, 2016 Arthritis M19.90 [facility] [address]00565100[place], [place] [address] Feb, [facility] [address]00565100[place], [place] [address] 30 Jan, 2016 [facility] [address]00565100[place], [place] [address] Jan, [facility] [address] [id number], [place] [address] Jan, Other chronic pain G89.29 [facility] [address]00565100[place] [address] 17 Jan, 2016 Hypertension I10 ; Coronary artery disease I25.10 and Insomnia G47.00 [facility] [address]00565100[place], [place] [address] Jan, [facility] [address] [place] [address] Dec, Right hip pain M25.551 [facility] [address] [id number], [place] [address] Dec, [facility] [address] [id number], [place] [address] Dec, [facility] [address] [place] [address], [place] [address] Dec, [facility] [address] [place] [address] Dec, Other chronic pain G89.29 [facility] [id number] [place] [address] Dec, [facility] [address]00565100[place] [address] Nov, [facility] [address] [place] [address] Nov, Other chronic pain G89.29 [facility] [address]00565100[place] [address] Nov, Right hip pain M25.551 and Coronary artery disease I25.10 [facility] [address]00565100[place] [address] Nov, Other chronic pain G89.29 [facility] [address]00565100[place] [address] Oct, [facility] [address]00565100[place], [place] [address] Oct, [facility] [address]00565100[place], [place] [address] Sep, [facility] [address]00565100[place], [place] [address] Sep, [facility] [id number] [place] [address] Aug, [facility] [id number] [place] [address] Aug, Hypertension I10 ; Coronary artery disease I25.10 and Arthritis M19.90 [facility] [id number] [place] [address] Jun, [facility] [id number] [place] [address] Jun, Essential hypertension, benign 401.1 ; Other chronic pain 338.29 and Chronic airway obstruction, not elsewhere classified [address] [facility] [id number] [place] [address] Jun, [facility] [address] [id number], [place] [address] Jun, [facility] [id number] [place] [address] Jun, [facility] [address] [place] [address] May, [facility] [address]00565100[place] [address] May, [facility] [address]00565100[place], [place] [address] Apr, [facility] [id number] [place] [address], [place] [address] Apr, [facility] [address] [place] [address] Apr, [facility] [address] [place] [address] March, [facility] [address] [id number] [place] [address] March, [facility] [address] [id number] [place] [address] March, [facility] [address] [id number] [place] [address] March, [facility] [address] [id number] [place] [address] March, Sialadenitis 527.2 [facility] [address] [id number] [place] [address] Feb, [facility] [address] [id number] [place] [address] Feb, [facility] [address] [id number] [place] [address] Feb, [facility] [address] [id number] [place] [address] Feb, [facility] [address] [id number] [place] [address] Feb, [facility] [address] [id number] [place] [address] Jan, [facility] [address] [id number] [place] [address] Jan, [facility] [address] [id number], [place] [address] Jan, [facility] [address] [id number] [place] [address] Jan, [facility] [address] [id number] [place] [address] Jan, [facility] [address] [id number] [place] [address] Jan, [facility] [address] [id number] [place] [address] Dec, [facility] [place] [facility] [address] [id number] [place] [address] Dec, [facility] [place] [facility] [address] [id number] [place] [address] Dec, 2014 [facility] [place] [facility] [address] [id number] [place] [address] Dec, 2014 [facility] [place] [facility] [address] [id number] [place] [address] Dec, [facility] [place] [facility] [address] [id number] [place] [address] Dec, [facility] [place] [facility] [address] [id number] [place] [address] Nov, [facility] [place] [facility] [address] [id number] [place] [address] Nov, [facility] [place] [facility] [address] [id number] [place] [address] Nov, [facility] [place] [facility] [address] [id number] [place] [address] Nov, [facility] [place] [facility] [address] [id number] [place] [address] Nov, [facility] [place] [facility] [address] [id number] [place] [address] Nov, [facility] [place] [facility] [address] [id number] [place] [address] Nov, [facility] [place] [facility] [address] [id number] [place] [address] Nov, [facility] [place] [facility] [address] [id number] [place] [address] Nov, [facility] [place] [facility] [address] [id number] [address] Nov, [facility] [place] [facility] [address] [id number] [place] [address] Nov, [facility] [place] [facility] [address] [id number] [place] [address] Nov, [facility] [place] [facility] [address] [id number] [place] [address] Nov, [facility] [place] [facility] [address] [id number] [place] [address] Nov, [facility] [place] [facility] [address] [id number] [place] [address] Oct, [facility] [place] [facility] [address] [id number] [place] [address] Oct, [facility] [place] [facility] [address] [id number] [place] [address] Oct, [facility] [place] [facility] [address] [id number] [place] [address] Oct, [facility] [place] [facility] [address] [id number] [place] [address] Oct, [facility] [place] [facility] [address] [id number] [place] [address] Oct, [facility] [place] [facility] [address] [id number] [place] [address] 17 Oct, 2014 [facility] [place] [facility] [address] [id number] [place] [address] Oct, [facility] [place] [facility] [address] [id number] [place] [address] Oct, [facility] [place] [facility] [address] [id number] [place] [address] Sep, [facility] [place] [facility] [address] [id number] [place] [address] Sep, [facility] [place] [facility] [address] [id number] [address] Sep, [facility] [place] [facility] [address] [id number] [place] [address] Sep, [facility] [place] [facility] [address] [id number] [place] [address] Sep, [facility] [place] [facility] [address] [id number] [place] [address] Sep, [facility] [place] [facility] [address] [id number] [place] [address] Sep, [facility] [place] [facility] [address] [id number] [place] [address] Sep, [facility] [place] [facility] [address] [id number] [place] [address] Sep, [facility] [place] [facility] [address] [id number] [place] [address] Sep, [facility] [place] [facility] [address] [id number], [place] [address] Sep, [facility] [place] [facility] [address] [id number], [place] [address] Sep, [facility] [place] [facility] [address] [id number], [place] [address] Aug, [facility] [place] [facility] [address] [id number], [place] [address] Aug, [facility] [place] [facility] [address] [id number], [place] [address] Aug, [facility] [place] [facility] [address] [id number], [place] [address] Aug, [facility] [place] [facility] [address] [id number], [place] [address] Aug, [facility] [place] [facility] [address] [id number], [place] [address] Aug, [facility] [place] [facility] [address] [id number] [place] [address] 17 Aug, 2014 [facility] [place] [facility] [address] [id number] [place] [address] 17 Aug, 2014 [facility] [place] [facility] [address] [id number] [place] [address] 30 Jul, 2013 [facility] [place] [facility] [address] [id number] [place] [address] 30 Jul, 2013 [facility] [place] [facility] [address] [id number] [place] [address] 30 Jul, 2013 [facility] [place] [facility] [address] [id number] [place] [address] 30 Jul, 2013 [facility] [place] [facility] [address] [id number] [place] [address] 25 Jul, 2013 [facility] [place] [facility] [address] [id number] [place] [address] 25 Jul, 2013 [facility] [place] [facility] [address] [id number] [place] [address] 15 Jul, 2014 [facility] [place] [facility] [address] [id number] [place] [address] 15 Jul, 2014 [facility] [place] [facility] [address] [id number] [place] [address] 11 Jul, 2014 [facility] [place] [facility] [address] [id number] [place] [address] Jul, [facility] [place] [facility] [address] [id number] [place] [address] Jun, [facility] [place] [facility] [address] [id number] [place] [address] Jun, [facility] [place] [facility] [address] [id number] [place] [address] Jun, [facility] [place] [facility] [address] [id number] [place] [address] Jun, [facility] [place] [facility] [address] [id number] [place] [address] Jun, [facility] [place] [facility] [address] [id number] [place] [address] Jun, [facility] [place] [facility] [address] [id number] [place] [address] Jun, [facility] [place] [facility] [address] [id number] [place] [address] Jun, [facility] [place] [facility] [address] [id number] [place] [address] Jun, [facility] [place] [facility] [address] [id number] [place] [address] Jun, [facility] [place] [facility] [address] [id number] [place] [address] Jun, [facility] [place] [facility] [address] [id number] [place] [address] Jun, [facility] [place] [facility] [address] [id number] [place] [address] Jun, [facility] [place] [facility] [address] [id number] [place] [address] Jun, [facility] [place] [facility] [address] [id number] [place] [address] Jun, [facility] [place] [facility] [address] [id number] [place] [address] Jun, [facility] [place] [facility] [address] [id number] [place] [address] Jun, [facility] [place] [facility] [address] [id number] [place] [address] Jun, [facility] [place] [facility] [address] [id number] [place] [address] Jun, [facility] [place] [facility] [address] [id number] [place] [address] Jun, [facility] [place] [facility] [address] [id number] [place] [address] Jun, [facility] [place] [facility] [address] [id number] [place] [address] Jun, [facility] [place] [facility] [address] [id number] [place] [address] May, [facility] [place] [facility] [address] [id number] [place] [address] May, [facility] [place] [facility] [address] [id number] [place] [address] May, [facility] [place] [facility] [address] [id number] [place] [address] May, [facility] [place] [facility] [address] [id number] [place] [address] May, [facility] [place] [facility] [address] [id number] [place] [address] May, [facility] [place] [facility] [address] [id number] [place] [address] May, [facility] [place] [facility] [address] [id number] [place] [address] May, [facility] [place] [facility] [address] [id number] [place] [address] May, [facility] [place] [facility] [address] [id number] [place] [address] May, [facility] [place] [facility] [address] [id number] [place] [address] May, [facility] [place] [facility] [address] [id number] [place] [address] May, [facility] [place] [facility] [address] [id number] [place] [address] May, [facility] [place] [facility] [address] [id number] [place] [address] Apr, [facility] [place] [facility] [address] [id number] [place] [address] Apr, [facility] [place] [facility] [address] [id number] [place] [address] Apr, [facility] [place] [facility] [address] [id number] [place] [address] Apr, [facility] [place] [facility] [address] [id number] [place] [address] Apr, [facility] [place] [facility] [address] [id number] [place] [address] Apr, [facility] [place] [facility] [address] [id number] [place] [address] Apr, [facility] [place] [facility] [address] [id number] [place] [address] Apr, [facility] [place] [facility] [address] [id number] [place] [address] Apr, [facility] [place] [facility] [address] [id number] [place] [address] March, [facility] [place] [facility] [address] [id number] [place] [address] March, [facility] [place] [facility] [address] [id number] [place] [address] March, [facility] [place] [facility] [address] [id number] [place] [address] March, [facility] [place] [facility] [address] [id number] [place] [address] March, [facility] [place] [facility] [address] [id number] [place] [address] March, [facility] [place] [facility] [address] [id number] [place] [address] March, [facility] [place] [facility] [address] [id number] [place] [address] March, [facility] [place] [facility] [address] [id number] [place] [address] March, [facility] [place] [facility] [address] [id number] [place] [address] March, [facility] [place] [facility] [address] [id number] [place] [address] March, [facility] [place] [facility] [address] [id number] [place] [address] March, [facility] [place] [facility] [address] [id number] [place] [address] March, [facility] [place] [facility] [address] [id number] [place] [address] March, [facility] [place] [facility] [address] [id number] [place] [address] March, [facility] [place] [facility] [address] [id number] [place] [address] March, [facility] [place] [facility] [address] [id number] [place] [address] March, [facility] [place] [facility] [address] [id number] [place] [address] March, [facility] [place] [facility] [address] [id number] [place] [address] March, [facility] [place] [facility] [address] [id number] [place] [address] March, [facility] [place] [facility] [address] [id number] [place] [address] Feb, [facility] [place] [facility] [address] [id number] [place] [address] Feb, [facility] [place] [facility] [address] [id number] [place] [address] 24 Feb, 2014 [facility] [place] [facility] [address] [id number] [place] [address] Feb, [facility] [place] [facility] [address] [id number] [place] [address] Feb, [facility] [place] [facility] [address] [id number] [place] [address] Feb, [facility] [place] [facility] [address] [id number] [place] [address] Feb, [facility] [place] [facility] [address] [id number] [place] [address] Feb, [facility] [place] [facility] [address] [id number] [place] [address] Jan, [facility] [place] [facility] [address] [id number] [place] [address] Jan, [facility] [place] [facility] [address] [id number] [place] [address] Jan, [facility] [place] [facility] [address] [id number] [place] [address] Jan, [facility] [place] [facility] [address] [id number] [place] [address] Jan, [facility] [place] [facility] [address] [id number] [place] [address] Jan, [facility] [place] [facility] [address] [id number] [place] [address] Jan, [facility] [place] [facility] [address] [id number] [place] [address] Jan, [facility] [place] [facility] [address] [id number] [place] [address] Jan, [facility] [place] [facility] [address] [id number] [place] [address] Jan, [facility] [place] [facility] [address] [id number] [place] [address] Dec, [facility] [place] [facility] [address] [id number] [place] [address] Dec, [facility] [place] [facility] [address] [id number] [place] [address] Dec, [facility] [place] [facility] [address] [id number] [place] [address] Dec, [facility] [place] [facility] [address] [id number] [place] [address] Dec, [facility] [place] [facility] [address] [id number] [place] [address] Dec, [facility] [place] [facility] [address] [id number] [place] [address] Dec, [facility] [place] [facility] [address] [id number] [place] [address] Dec, [facility] [place] [facility] [address] [id number] [place] [address] Nov, [facility] [place] [facility] [address] [id number] [place] [address] Nov, [facility] [place] [facility] [address] [id number] [place] [address] Nov, [facility] [place] [facility] [address] [id number] [place] [address] Nov, [facility] [place] [facility] [address] [id number] [place] [address] Nov, [facility] [place] [facility] [address] [id number] [place] [address] Nov, [facility] [place] [facility] [address] [id number] [place] [address] Nov, [facility] [place] [facility] [address] [id number] [place] [address] Nov, [facility] [address] [id number] [place] [address] Nov, [facility] [address] [id number] [place] [address] Nov, [facility] [address] [id number] [place] [address] Nov, [facility] [address] [id number] [place] [address] Nov, [facility] [address] [id number] [place] [address] Nov, [facility] [address] [id number] [place] [address] Oct, [facility] [address] [id number] [place] [address] 30 Oct, 2013 [facility] [place] [facility] [address] [id number] [place] [address] Oct, [facility] [address] [id number] [place] [address] Oct, [facility] [place] [facility] [address] [id number] [place] [address] Oct, [facility] [address] [id number] [place] [address] Oct, [facility] [place] [facility] [address] [id number] [place] [address] 18 Oct, 2013 [facility] [place] [facility] [address] [id number] [place] [address] 18 Oct, 2013 [facility] [place] [facility] [address] [id number] [place] [address] 17 Oct, 2013 [facility] [place] [facility] [address] [id number] [place] [address] 17 Oct, 2013 [facility] [place] [facility] [address] [id number] [place] [address] Oct, [facility] [place] [facility] [address] [id number] [place] [address] Oct, [facility] [place] [facility] [address] [id number] [place] [address] Oct, [facility] [place] [facility] [address] [id number] [place] [address] Oct, [facility] [place] [facility] [address] [id number] [place] [address] Sep, [facility] [place] [facility] [address] [id number] [place] [address] Sep, [facility] [place] [facility] [address] [id number] [place] [address] Sep, [facility] [place] [facility] [address] [id number] [place] [address] Sep, [facility] [place] [facility] [address] [id number] [place] [address] Sep, [facility] [place] [facility] [address] [id number] [place] [address] Sep, [facility] [place] [facility] [address] [id number] [place] [address] Sep, [facility] [place] [facility] [address] [id number] [place] [address] Sep, [facility] [place] [facility] [address] [id number] [place] [address] Sep, [facility] [place] [facility] [address] [id number] [place] [address] Sep, [facility] [place] [facility] [address] [id number] [place] [address] Aug, [facility] [place] [facility] [address] [id number], [place] [address] 24 Aug, 2013 [facility] [place] [facility] [address] [id number] [place] [address] 24 Aug, 2013 [facility] [place] [facility] [address] [id number], [place] [address] 24 Aug, 2013 [facility] [place] [facility] [address] [id number] [place] [address] Aug, [facility] [place] [facility] [address] [id number], [place] [address] Aug, 2012 [facility] [place] [facility] [address] [id number] [place] [address] Aug, [facility] [place] [facility] [address] [id number], [place] [address] Aug, [facility] [place] [facility] [address] [id number], [place] [address] Aug, [facility] [place] [facility] [address] [id number], [place] [address] 22 Aug, 2013 [facility] [place] [facility] [address] [id number], [place] [address] 18 Aug, 2013 [facility] [place] [facility] [address] [id number], [place] [address] 18 Aug, 2013 [facility] [place] [facility] [address] [id number], [place] [address] 18 Aug, 2013 [facility] [place] [facility] [address] [id number][place] [address] 18 Aug, 2012 [facility] [place] [facility] [address] [id number], [place] [address] 17 Aug, 2012 [facility] [place] [facility] [address] [id number], [place] [address] 14 Aug, 2012 [facility] [place] [facility] [address] [id number], [place] [address] 14 Aug, 2012 [facility] [place] [facility] [address] [id number] [place] [address] Aug, [facility] [address] [id number] [place] [address] 20 Jul, 2013 [facility] [place] [facility] [address] [id number] [place] [address] 19 Jul, 2013 [facility] [address] [id number] [place] [address] 18 Jul, 2013 [facility] [place] [facility] [address] [id number] [place] [address] Jul, [facility] [address] [id number] [place] [address] Jul, [facility] [address] [id number] [place] [address] Jun, [facility] [place] [facility] [address] [id number] [place] [address] Jun, [facility] [address] [id number] [place] [address] Jun, [facility] [place] [facility] [address] [id number] [place] [address] Jun, [facility] [address] [id number] [place] [address] Jun, [facility] [place] [facility] [address] [id number] [place] [address] Jun, [facility] [place] [facility] [address] [id number] [place] [address] Jun, [facility] [place] [facility] [address] [id number] [place] [address] Jun, [facility] [place] [facility] [address] [id number] [place] [address] Jun, [facility] [place] [facility] [address] [id number] [place] [address] Jun, [facility] [place] [facility] [address] [id number] [place] [address] May, [facility] [place] [facility] [address] [id number] [place] [address] May, [facility] [place] [facility] [address] [id number] [place] [address] May, [facility] [place] [facility] [address] [id number] [place] [address] May, [facility] [place] [facility] [address] [id number] [place] [address] May, [facility] [place] [facility] [address] [id number] [place] [address] May, [facility] [place] [facility] [address] [id number] [place] [address] May, [facility] [place] [facility] [address] [id number] [place] [address] May, [facility] [place] [facility] [address] [id number] [place] [address] May, [facility] [place] [facility] [address] [id number] [place] [address] Apr, [facility] [place] [facility] [address] [id number] [place] [address] Apr, [facility] [place] [facility] [address] [id number] [place] [address] Apr, [facility] [place] [facility] [address] [id number] [place] [address] Apr, [facility] [place] [facility] [address] [id number] [place] [address] Apr, [facility] [place] [facility] [address] [id number] [place] [address] Apr, [facility] [place] [facility] [address] [id number] [address] Apr, [facility] [address] [id number] [place] [address] March, [facility] [address] [id number] [place] [address] Feb, [facility] [address] [id number] [place] [address] Feb, [facility] [address] [id number] [place] [address] Feb, [facility] [address] [id number] [place] [address] Jan, [facility] [address] [id number] [place] [address] Jan, [facility] [address] [id number] [place] [address] Jan, [facility] [address] [id number] [place] [address] 14 Jan, 2013 [facility] [address] [id number] [place] [address] Jan, [facility] [address] [facility] [id number] [place] [address] Jan, [facility] [address] [id number] [place] [address] Jan, [facility] [address] [id number] [place] [address] Jan, [facility] [address] [id number] [place] [address] Dec, [facility] [place] [facility] [address] [id number] [place] [address] Dec, [facility] [address] [facility] [id number] [address] Dec, [facility] [address] [id number] [place] [address] 11 Dec, 2012 [facility] [address] [id number] [place] [address] 07 Dec, 2012 [facility] [place] [facility] [address] [id number] [place] [address] 06 Dec, 2012 [facility] [place] [facility] [address] [id number] [place] [address] 05 Dec, 2012 [facility] [address] [id number] [place] [address] Nov, [facility] [place] [facility] [address] [id number] [place] [address] 24 Nov, 2012 [facility] [address] [id number] [place] [address] Nov, [facility] [address] [id number] [place] [address] 15 Nov, 2012 [facility] [place] [facility] [address] [id number] [place] [address] Nov, [facility] [address] [id number] [place] [address] Nov, [facility] [place] [facility] [address] [id number] [place] [address] Nov, [facility] [place] [facility] [address] [id number] [place] [address] Oct, [facility] [place] [facility] [address] [id number] [place] [address] Oct, [facility] [place] [facility] [address] [id number] [place] [address] Oct, [facility] [place] [facility] [address] [id number] [place] [address] Oct, [facility] [place] [facility] [address] [id number], [place] [address] Oct, [facility] [place] [facility] [address] [id number] [place] [address] Oct, [facility] [place] [facility] [address] [id number] [place] [address] Oct, [facility] [place] [facility] [address] [id number] [place] [address] Oct, [facility] [place] [facility] [address] [id number] [place] [address] Oct, [facility] [place] [facility] [address] [id number] [place] [address] Oct, [facility] [place] [facility] [address] [id number] [place] [address] Oct, [facility] [place] [facility] [address] [facility] [id number] [place] [address] Oct, [facility] [place] [facility] [address] [id number] [place] [address] Sep, [facility] [place] [facility] [address] [id number] [place] [address] Sep, [facility] [place] [facility] [address] [facility] [id number], [place] [address] Sep, [facility] [place] [facility] [address] [id number], [place] [address] Sep, [facility] [place] [facility] [address] [id number], [place] [address] Sep, [facility] [place] [facility] [address] [id number], [place] [address] Sep, [facility] [place] [facility] [address] [id number], [place] [address] Sep, [facility] [place] [facility] [address] [facility] [id number] [place] [address] Sep, [facility] [place] [facility] [address] [id number] [place] [address] Sep, [facility] [place] [facility] [address] [id number] [place] [address] Sep, [facility] [place] [facility] [address] [id number] [place] [address] Sep, [facility] [place] [facility] [address] [id number] [place] [address] Aug, [facility] [place] [facility] [address] [id number] [place] [address] Aug, [facility] [place] [facility] [address] [id number] [place] [address] Aug, [facility] [place] [facility] [address] [id number] [place] [address] Aug, [facility] [place] [facility] [address] [id number] [place] [address] Aug, [facility] [place] [facility] [address] [id number] [place] [address] Aug, [facility] [place] [facility] [address] [id number] [place] [address] Aug, [facility] [place] [facility] [address] [id number] [place] [address] Aug, [facility] [place] [facility] [address] [id number] [place] [address] Aug, [facility] [place] [facility] [address] [id number] [place] [address] Aug, [facility] [place] [facility] [address] [id number] [place] [address] 22 Jul, 2012 [facility] [place] [facility] [address] [id number] [place] [address] 20 Jul, 2012 [facility] [place] [facility] [address] [id number] [place] [address] Jul, [facility] [place] [facility] [address] [id number] [place] [address] Jul, [facility] [place] [facility] [address] [id number] [place] [address] Jun, [facility] [place] [facility] [address] [id number] [place] [address] Jun, [facility] [place] [facility] [address] [id number] [place] [address] Jun, [facility] [place] [facility] [address] [id number] [place] [address] Jun, [facility] [place] [facility] [address] [id number] [place] [address] Jun, [facility] [place] [facility] [address] [id number] [place] [address] Jun, [facility] [place] [facility] [address] [id number] [place] [address] Jun, [facility] [place] [facility] [address] [id number] [place] [address] May, [facility] [place] [facility] [address] [id number] [place] [address] May, [facility] [place] [facility] [address] [id number] [place] [address] May, [facility] [place] [facility] [address] [id number] [place] [address] May, [facility] [place] [facility] [address] [id number] [place] [address] May, [facility] [place] [facility] [address] [id number] [place] [address] Apr, [facility] [place] [facility] [address] [id number] [place] [address] Apr, [facility] [place] [facility] [address] [id number] [place] [address] 13 Apr, 2012 [facility] [address] [id number] [place] [address] Apr, [facility] [place] [facility] [address] [id number] [place] [address] Apr, [facility] [place] [facility] [address] [id number] [place] [address] March, [facility] [place] [facility] [address] [id number] [place] [address] March, [facility] [address] [id number] [place] [address] March, [facility] [place] [facility] [address] [id number] [place] [address] March, [facility] [address] [id number] [place] [address] March, [facility] [address] [id number] [place] [address] March, [facility] [place] [facility] [address] [id number] [place] [address] March, [facility] [place] [facility] [address] [id number] [place] [address] March, [facility] [place] [facility] [address] [id number] [place] [address] March, [facility] [place] [facility] [address] [id number] [place] [address] March, [facility] [place] [facility] [address] [id number] [place] [address] Feb, [facility] [place] [facility] [address] [id number] [place] [address] Feb, [facility] [place] [facility] [address] [id number] [place] [address] Feb, [facility] [place] [facility] [address] [id number] [place] [address] Feb, [facility] [place] [facility] [address] [id number] [place] [address] Feb, [facility] [place] [facility] [address] [id number] [place] [address] Feb, [facility] [place] [facility] [address] [id number] [place] [address] Feb, [facility] [place] [facility] [address] [id number] [place] [address] Feb, [facility] [place] [facility] [address] [id number] [place] [address] Feb, [facility] [place] [facility] [address] [id number] [place] [address] Jan, [facility] [place] [facility] [address] [id number] [place] [address] Jan, [facility] [place] [facility] [address] [id number] [place] [address] Jan, [facility] [place] [facility] [address] [id number] [place] [address] Jan, [facility] [place] [facility] [address] [id number] [place] [address] Dec, [facility] [place] [facility] [address] [id number] [place] [address] Dec, [facility] [place] [facility] [address] [id number] [place] [address] Nov, [facility] [place] [facility] [address] [id number] [place] [address] Nov, [facility] [place] [facility] [address] [id number] [place] [address] Nov, [facility] [place] [facility] [address] [id number], [place] [address] Nov, [facility] [address] [facility] [id number] [address] Nov, [facility] [address] [facility] [id number], [place] [address] Oct, [facility] [address] [facility] [id number], [place] [address] Oct, [facility] [address] [facility] [id number], [place] [address] Oct, [facility] [address] [facility] [id number], [place] [address] Oct, [facility] [address] [facility] [id number], [place] [address] Oct, [facility] [id number] [address] Oct, [facility] [id number] [address] Oct, [facility] [address] [id number] [address] Oct, [facility] [address] [id number] [address] Sep, IMMUNIZATIONS No Known Immunizations SOCIAL HISTORY Never Assessed REASON FOR VISIT EMR-[facility] [place] PLAN OF CARE VITAL SIGNS MEDICATIONS Unknown Medications RESULTS No Results PROCEDURES No Known procedures INSTRUCTIONS MEDICATIONS ADMINISTERED No Known Medications MEDICAL (GENERAL) HISTORY Type Description Date 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
[2019-04-16] MEDS ORDERED: PANTOPRAZOLE 40 MG (PROTONIX) VIAL IV ONE (15:30)
--- NOTE | 2019-04-16 15:30 | ED GI ---
General Chief Complaint: Abdominal/GI Problems Stated Complaint: VOMITING Source of Information: Patient, EMS, Correction Records Exam Limitations: No Limitations History of Present Illness Date Seen by Provider: April 16, 2019 Time Seen by Provider: 15:13 Initial Comments The patient presents to ER by EMS with chief complaint of 2-3 days of black tarry diarrhea and vomiting black emesis. She was seen this morning at the clinic and labs were drawn demonstrating that from 3 months ago her hemoglobin from 13.5 down to 8.7. She is on Eliquis and that she's had a colonoscopy years ago she does not recall anything wrong with it. She is having mild abdominal distress and was given 4 mg Zofran and started a liter of saline on route because her blood pressure was in the 80s systolic. She is tachycardic in the 120 to 1:30 range. She denies a history of atrial fibrillation. She has a white count of 20,000 per report from the clinic and her chemistry panel is okay except for an elevated BUNs of 66. The patient is a full code. Allergies and Home Medications Allergies Coded Allergies: Sulfa (Sulfonamide Antibiotics) (Verified Allergy, Unknown, 04/16/19) diphenhydramine HCl (Verified Allergy, Unknown, 04/16/19) hydrochlorothiazide (Unverified Allergy, Unknown, 04/16/19) varenicline tartrate (Verified Allergy, Unknown, 04/16/19) Home Medications Acetaminophen 325 Mg Tablet, 650 MG PO Q4H PRN for PAIN-MILD, (Reported) Acetaminophen 325 Mg Tablet, 325 MG PO TID, (Reported) Albuterol Sulfate 8.5 Gm Hfa.aer.ad, 1 PUFF IH Q4H PRN for SHORTNESS OF BREATH, (Reported) Albuterol Sulfate 1 Puff Puff, 2 PUFF IH Q6H PRN for SHORTNESS OF BREATH, (Reported) 1 PUFF = 90 MCG Apixaban 5 Mg Tablet, 5 MG PO BID, (Reported) Aspirin 81 Mg Tab.chew, 81 MG PO DAILY, (Reported) Atorvastatin Calcium 40 Mg Tablet, 40 MG PO HS, (Reported) Budesonide/Formoterol Fumarate 10.2 Gm Hfa.aer.ad, 2 PUFF IH BID, (Reported) Bupropion HCl 300 Mg Tab.er.24h, 300 MG PO HS, (Reported) Cephalexin 500 Mg Capsule, 500 MG PO QID Prescribed by: JUAREZ CLAY on 05/05/18 09 Escitalopram Oxalate 20 Mg Tablet, 20 MG PO DAILY, (Reported) Estradiol 42.5 Gm Cream.appl, 1.25 GM VG PRN PRN for UTI PROPHYLAXIS, (Reported) Furosemide 20 Mg Tablet, 20 MG PO Q48H, (Reported) Gabapentin 400 Mg Capsule, 400 MG PO TID, (Reported) Hydrocodone/Acetaminophen 1 Each Tablet, 1 EACH PO Q6H PRN for PAIN-MODERATE Prescribed by: JENNIFER OCHOA on 09/04/181421 Lorazepam 0.5 Mg Tablet, 0.5 MG PO DAILY, (Reported) Metformin HCl 500 Mg Tablet, 500 MG PO DAILY, (Reported) TAKE WITH A MEAL Metoprolol Tartrate 50 Mg Tablet, 50 MG PO BID, (Reported) Nitrofurantoin Monohyd/M-Cryst 100 Mg Capsule, 1 TAB PO BID Prescribed by: JENNIFER OCHOA on 09/04/181421 Ondansetron HCl 4 Mg Tablet, 4 MG PO Q6H PRN for NAUSEA/VOMITING-1ST LINE, (Reported) Oxycodone HCl/Acetaminophen 1 Each Tablet, 1 EACH PO Q4H PRN for PAIN-MODERATE TO SEVERE Prescribed by: JUAREZ CLAY on 05/05/18941 Phenazopyridine HCl 200 Mg Tablet, 1 TAB PO TID Prescribed by: JENNIFER OCHOA on 09/04/181421 Polyethylene Glycol 3350 17 Gm Powd.pack, 17 GM PO PRN PRN for CONSTIPATION-1ST LINE, (Reported) Potassium Chloride 20 Meq Tab.er.prt, 40 MEQ PO Q48H, (Reported) TAKES 2 (20MEQ) TABLETS EVERY OTHER DAY WITH FUROSEMIDE Tamsulosin HCl 0.4 Mg Cap, 0.4 MG PO DAILY, (Reported) Tramadol HCl 50 Mg Tablet, 50 MG PO TID, (Reported) Trazodone HCl 50 Mg Tablet, 25 MG PO HS, (Reported) Patient Home Medication List Home Medication List Reviewed: Yes Review of Systems Review of Systems Constitutional: No chills, No diaphoresis, No fever; malaise, weakness EENTM: No Blurred Vision, No Double Vision Respiratory: Denies Cough, Denies Shortness of Air Cardiovascular: Denies Chest Pain, Denies Edema Gastrointestinal: See HPI; Denies Abdominal Pain, Denies Constipated; Diarrhea, Nausea, Rectal Bleeding, Vomiting, Other (gastric occult positive hematemesis per nursing report) Genitourinary: Denies Burning, Denies Discharge Musculoskeletal: No back pain, No joint pain Skin: No pruritus, No rash Psychiatric/Neurological: Denies Headache, Denies Numbness, Denies Paresthesia Past Beuilaq-Jgzokr-Nntvvo Hx Patient Social History Alcohol Use: Denies Use Recreational Drug Use: No Smoking Status: Former Smoker Type Used: Cigarettes Former Smoker, Quit: Oct 15, 1988 2nd Hand Smoke Exposure: No Recent Foreign Travel: No Contact w/Someone Who Travel: No Recent Hopitalizations: No Immunizations Up To Date Tetanus Booster (TDap): Unknown PED Vaccines UTD: No Date of Pneumonia Vaccine: Sep 05, 2014 Date of Influenza Vaccine: Aug 19, 2017 Seasonal Allergies Seasonal Allergies: No Past Medical History Surgeries: Yes Adenoidectomy, Appendectomy, Bladder Surgery, Cardiac, CABG, Gallbladder, Hysterectomy, Joint Replacement, Orthopedic, Tonsillectomy Respiratory: Yes Asthma Cardiac: Yes (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, 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 Neurological: Yes (HAD BRAIN SURGERY FOR ANEURYSM 2008) Reproductive Disorders: Yes Female Reproductive Disorders: Endometriosis 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 Sexually Transmitted Disease: No UTI-Chronic Gastrointestinal: No Chronic Constipation Musculoskeletal: Yes ( BILAT ROTATOR CUFF SURGERY) Degenerate Disk Disease, Arthritis, Chronic Back Pain Endocrine: Yes Diabetes, Non-Insulin dep Cataract Loss of Vision: Denies Hearing Impairment: Denies Cancer: No Psychosocial: Yes (panic disorder) Anxiety, Depression Integumentary: No Blood Disorders: No Adverse Reaction/Blood Tranf: No Family Medical History Cancer 09 SISTER Cancer of colon Cataract 03 MOTHER, Onset:Unknown Family history: Allergy 03 FATHER, Onset:Unknown 03 MOTHER, Onset:Unknown Family history: Arthritis 03 FATHER, Onset:Unknown 03 MOTHER, Onset:Unknown 09 SISTER, Onset:Unknown Family history: Cardiovascular disease 03 FATHER, Onset:Unknown 03 MOTHER, Onset:Unknown 09 BROTHER, Onset:Unknown 09 SISTER, Onset:Unknown Family history: Diabetes mellitus 03 MOTHER, Onset:Unknown Family history: Gastrointestinal disease 03 FATHER, Onset:Unknown Family history: Hypertension 03 MOTHER, Onset:Unknown Family history: Osteoporosis 03 MOTHER, Onset:Unknown Hearing loss 03 FATHER, Onset:Unknown Heart disease 03 FATHER, Onset:Unknown 03 MOTHER, Onset:Unknown 09 BROTHER, Onset:Unknown Hypercholesterolemia 03 MOTHER, Onset:Unknown Malignant neoplasm of lung 09 SISTER, Onset:Unknown Myocardial infarction 09 BROTHER, Onset:Unknown Parkinson's disease Stroke 03 FATHER, Onset:Unknown Thyroid disease No Family History of: Abdominal aortic aneurysm Sunflower's disease Alcoholism Aphasia Chest pain Congenital heart disease Congestive heart failure Cystic fibrosis Dementia Dysphagia Family history: Alzheimer's disease Family history: Asthma Family history: Breast disease Family history: Coronary thrombosis Family history: Glaucoma Family history: Thyroid disorder Headache Hereditary disease History of - anemia History of - disorder History of - respiratory disease History of drug abuse Human immunodeficiency virus (HIV) seropositivity Infertile Kidney disease Prostate cancer Psychotic disorder Seizure disorder Tuberculosis Visual impairment No Pertinent Family Hx, Heart Disease, Diabetes Physical Exam Vital Signs Vital Signs - First Documented 04/16/19 15:45 O2 Delivery Nasal Cannula O2 Flow Rate 2.00 FiO2 100 Capillary Refill : Height/Weight/BMI Height: 5'2.00" Weight: 180lbs. 0.0oz. 81.628285ej; 29.3 BMI Method:Stated General Appearance: WD/WN, moderate distress HEENT: PERRL/EOMI, pharynx normal Neck: non-tender, full range of motion, supple Respiratory: lungs clear, normal breath sounds, no respiratory distress, no accessory muscle use Cardiovascular: normal peripheral pulses, regular rate, rhythm Peripheral Pulses: 2+ Radial Pulses (R), 2+ Radial Pulses (L) Gastrointestinal: normal bowel sounds, non tender, soft Extremities: non-tender, normal inspection, no pedal edema, normal capillary refill Neurologic/Psychiatric: alert, normal mood/affect, oriented x 3 Focused Exam Sepsis Stage: Septic Shock Possible Source: Genitouriary Lactate Level 04/16/19 15:20: Lactic Acid Level 2.64*H Time of Focused Exam: 17:05 Respiratory: Lungs Clear, Normal Breath Sounds, No Accessory Muscle Use, No Respiratory Distress Cardiovascular: Regular Rate, Rhythm, Tachycardia (100 to 115 atrial fibrillation) Capillary Refill: Less Than 3 Seconds Peripheral Pulses: 2+ Radial Pulses (R), 2+ Radial Pulses (L) Skin: normal color, warm/dry Lactic Acid Level Laboratory Tests Test 04/16/19 15:20 Lactic Acid Level 2.64 MMOL/L (0.50-2.00) *H Within 3hrs of presentation: Admin fluids (2500 cc +2 units of red blood cells), Admin ABX (cefepime), Blood cultures prior to ABX's, Focus exam, Lactate level (2.6) Progress/Results/Core Measures Results/Orders Lab Results Laboratory Tests Test 04/16/19 15:20 04/16/19 16:12 Range/Units White Blood Count 22.4 H 4.3-11.0 10^3/uL Red Blood Count 2.48 L 4.35-5.85 10^6/uL Hemoglobin 7.5 L 11.5-16.0 G/DL Hematocrit 23 L 35-52 % Mean Corpuscular Volume 93 80-99 FL Mean Corpuscular Hemoglobin 30 25-34 PG Mean Corpuscular Hemoglobin Concent 33 32-36 G/DL Red Cell Distribution Width 14.9 H 10.0-14.5 % Platelet Count 283 130-400 10^3/uL Mean Platelet Volume 10.4 7.4-10.4 FL Neutrophils (%) (Auto) 75 42-75 % Lymphocytes (%) (Auto) 17 12-44 % Monocytes (%) (Auto) 7 0-12 % Eosinophils (%) (Auto) 0 0-10 % Basophils (%) (Auto) 0 0-10 % Neutrophils # (Auto) 16.8 H 1.8-7.8 X 10^3 Lymphocytes # (Auto) 3.8 1.0-4.0 X 10^3 Monocytes # (Auto) 1.7 H 0.0-1.0 X 10^3 Eosinophils # (Auto) 0.1 0.0-0.3 10^3/uL Basophils # (Auto) 0.0 0.0-0.1 10^3/uL Neutrophils % (Manual) 71 % Lymphocytes % (Manual) 20 % Monocytes % (Manual) 7 % Eosinophils % (Manual) 0 % Basophils % (Manual) 0 % Band Neutrophils 2 % Polychromasia SLIGHT Anisocytosis SLIGHT Prothrombin Time 18.9 H 12.2-14.7 SEC INR Comment 1.5 H 0.8-1.4 Activated Partial Thromboplast Time 31 24-35 SEC Sodium Level 135 135-145 MMOL/L Potassium Level 4.6 3.6-5.0 MMOL/L Chloride Level 105 98-107 MMOL/L Carbon Dioxide Level 21 21-32 MMOL/L Anion Gap 9 5-14 MMOL/L Blood Urea Nitrogen 56 H 7-18 MG/DL Creatinine 0.75 0.60-1.30 MG/DL Estimat Glomerular Filtration Rate > 60 BUN/Creatinine Ratio 75 Glucose Level 164 H 70-105 MG/DL Lactic Acid Level 2.64 *H 0.50-2.00 MMOL/L Calcium Level 7.9 L 8.5-10.1 MG/DL Corrected Calcium 8.8 8.5-10.1 MG/DL Magnesium Level 1.8 1.8-2.4 MG/DL Total Bilirubin 0.2 0.1-1.0 MG/DL Aspartate Amino Transf (AST/SGOT) 15 5-34 U/L Alanine Aminotransferase (ALT/SGPT) 12 0-55 U/L Alkaline Phosphatase 42 40-136 U/L Troponin I < 0.028 <0.028 NG/ML Total Protein 4.9 L 6.4-8.2 GM/DL Albumin 2.9 L 3.2-4.5 GM/DL Urine Color YELLOW Urine Clarity VERY CLOUDY H Urine pH 6.5 5-9 Urine Specific [place] 1.020 1.016-1.022 Urine Protein 2+ H NEGATIVE Urine Glucose (UA) NEGATIVE NEGATIVE Urine Ketones NEGATIVE NEGATIVE Urine Nitrite POSITIVE H NEGATIVE Urine Bilirubin NEGATIVE NEGATIVE Urine Urobilinogen NORMAL NORMAL MG/DL Urine Leukocyte Esterase 3+ H NEGATIVE Urine RBC (Auto) 1+ H NEGATIVE Urine RBC 0-2 /HPF Urine WBC 10-25 H /HPF Urine Squamous Epithelial Cells 10-25 H /HPF Urine Crystals PRESENT H /LPF Urine Amorphous Sediment LARGE VI URATES H /LPF Urine Bacteria LARGE H /HPF Urine Casts NONE /LPF Urine Mucus NEGATIVE /LPF Urine Culture Indicated CULTURE PENDING My Orders Orders - JESSICA JENKINS Cbc With Automated Diff (04/16/19 15:19) Comprehensive Metabolic Panel (04/16/19 15:19) Magnesium (04/16/19 15:19) Protime With Inr (04/16/19 15:19) Partial Thromboplastin Time (04/16/19 15:19) Ua Culture If Indicated (04/16/19 15:19) Blood Culture (04/16/19 15:19) Ct Abdomen/Pelvis W (04/16/19 15:19) Ed Iv/Invasive Line Start (04/16/19 15:19) Ns Iv 1000 Ml (Sodium Chloride 0.9%) (04/16/19 15:19) Vital Signs: Special (Order) (04/16/19 15:19) Consent-Obtain Consent For (04/16/19 15:19) Monitor S/S Transfusion Reacti (04/16/19 15:19) Ns Iv 500 Ml (Sodium Chloride 0.9%) (04/16/19 15:19) Type And Screen (04/16/19 15:19) Red Cells Leukocytes Reduced (04/16/19 15:19) Pantoprazole Injection (Protonix Injecti (04/16/19 15:30) Catheter(Urinary) Insert & Ass 03,15 (04/16/19 15:26) Lactic Acid Analyzer (04/16/19 15:30) Continuous Ekg Monitoring (04/16/19 15:37) Ekg Tracing (04/16/19 15:37) Sputum Culture (04/16/19 15:37) Urine Culture (04/16/19 15:37) Chest 1 View, Ap/Pa Only (04/16/19 15:37) Ed Iv/Invasive Line Start (04/16/19 15:37) Troponin I (04/16/19 15:37) Vital Signs Adult Sepsis Patie Q15M (04/16/19 15:37) O2 (04/16/19 15:37) Remove Rings In Anticipation O (04/16/19 15:37) Cefepime Injection (Maxipime Injection) (04/16/19 15:45) Manual Differential (04/16/19 15:20) Red Cells Leukocytes Reduced (04/16/19 16:08) Iohexol Injection (Omnipaque 350 Mg/Ml 1 (04/16/19 17:00) Received Contrast (Hold Metformin- Contr (04/16/19 17:00) Sodium Chloride Flush (Catheter Flush Sy (04/16/19 17:00) Ns (Ivpb) (Sodium Chloride 0.9% Ivpb Bag (04/16/19 17:00) Medications Given in ED Current Medications Medications Dose Ordered Sig/Kervin Route Start Time Stop Time Status Last Admin Dose Admin Cefepime HCl 1000 mg/Sterile Water 10 ml @ 200 mls/hr ONCE ONCE IV 04/16/19 15:45 04/16/19 15:47 DC 04/16/19 16:55 200 MLS/HR Iohexol 100 ml ONCE ONCE IV 04/16/19 17:00 04/16/19 17:01 DC 04/16/19 16:57 91 ML Pantoprazole 80 mg ONCE ONCE IV 04/16/19 15:30 04/16/19 15:31 DC 04/16/19 15:42 80 MG Sodium Chloride 10 ml NEEDED PRN IV 04/16/19 17:00 04/16/19 16:57 10 ML Sodium Chloride 100 ml ONCE ONCE IV 04/16/19 17:00 04/16/19 17:01 DC 04/16/19 16:57 100 ML Vital Signs/I&O 04/16/19 04/16/19 04/16/19 04/16/19 15:11 15:11 15:45 15:58 Temp 99.4 99.4 Pulse 133 133 Resp 28 28 B/P (MAP) 95/59 95/59 (71) Pulse Ox 97 97 100 O2 Delivery Nasal Cannula O2 Flow Rate 2.00 FiO2 100 Progress Progress Note #1: Time: 15:35 Progress Note If we can stabilize her with fluids we will plan to give 30 mL/kg her to be 2- 1/2 L then plan to get a CT of her abdomen and pelvis. I ordered 1 L EMS is given earlier and will be 500 cc to run in with a unit of blood. We will have one unit on standby. EKG and troponin as she is hypovolemic causing her tachycardia. Zosyn although her elevated white count could also be from her acute blood loss via the GI tract. She has a suprapubic catheter; plan to obtain a urine specimen get a chest x- ray. Moderate size infrarenal saccular abdominal aortic aneurysm. 70% ostial and proximal stenosis of the renal arteries. Cardiac catheterization [address] Torrez: Severe [place] coronary artery disease consisting of 80-90% mid vessel stenosis of the LAD and 70% proximal right coronary artery as well as ostial occlusion of an obtuse marginal and multiple stenoses in the proximal and distal right coronary arteries of up to approximately 90%. 3 widely patent grafts. EF of 70%. No thoracic aortic aneurysm or dissection. Progress Note #2: Time: 16:07 Progress Note Her blood pressure has significantly improved with IV fluids. She is still tachycardic in the 105-120 range a troponin fibrillation. Because of her use of Eliquis an ongoing bleed we will going give her the second unit of blood in addition to the first. Consultation has been made with cardiology and they recommend treating her GI bleed. Progress Note #3: Time: 17:12 Progress Note Left a voicemail for Steven Barnes, vanesa. Initial ECG Impression Date: April 16, 2019 Initial ECG Impression Time: 15:41 Initial ECG Rate: 123 Initial ECG Rhythm: Normal Sinus Initial ECG Intervals: QT (470) Initial ECG Impression: Nonspecific Changes Initial ECG Comparisson: Changed Comment The patient has 1-[address] depression in the lateral leads V3, V4, V5, and V6. Consistent with anterolateral ischemia. Atrial fibrillation with a rapid ventricular rate. Diagnostic Imaging Diagonstic Imaging: Xray Plain Films/CT/US/NM/MRI: chest (1v) Comments NAME: JUL[facility] BARNES [facility] REC#: [id number] PHYSICIAN: JESSICA JENKINS MD CC: WALLY POND MD; JESSICA JENKINS Page 1 of 1 RADIOLOGY REPORT [facility] [place], [place] CC: WALLY POND MD; JESSICA JENKINS Page 1 of 1 RADIOLOGY REPORT NAME: JUL[facility] BARNES [facility] REC#: [id number] PT STATUS: ADM IN : 1935 PHYSICIAN: JESSICA JENKINS MD ADMIT DATE: 04/16/19/ICU Signed Date of Exam: 04/16/19 CHEST 1 VIEW, AP/PA ONLY INDICATION: Fever and black stools. EXAMINATION: Frontal chest obtained at 04:53 p.m. and is compared to 04/06/2019. FINDINGS: There is poststernotomy change. The heart is moderately enlarged. There are chronic-appearing increased interstitial markings which are similar to the prior study. There is no new infiltrate or pneumothorax or pleural fluid. IMPRESSION: Cardiomegaly with chronic-appearing increased interstitial markings and mild central vascular congestion. No new consolidation or pleural fluid. Dictated by: Dictated on workstation # [id number] Dict: 04/16/19 1700 Trans: 05/30/19 1711 Interpreted by: WALLY POND MD Electronically signed by: WALLY POND MD 04/16/191710 Reviewed: Reviewed by Me Diagonstic Imaging: CT (with IV contrast) Plain Films/CT/US/NM/MRI: abdomen, pelvis Comments [facility]. [place], [place] NAME: JULES BARNES [facility] REC#: [id number] PT STATUS: ADM IN : 1935 PHYSICIAN: JESSICA JENKINS MD ADMIT DATE: 04/16/19/ICU Draft Date of Exam:04/16/19 CT ABDOMEN/PELVIS W PROCEDURE: CT abdomen and pelvis with contrast. TECHNIQUE: Multiple contiguous axial images were obtained through the abdomen and pelvis after administration of intravenous contrast. Auto Exposure Controls were utilized during the CT exam to meet ALARA standards for radiation dose reduction. INDICATION: Tarry stools with nausea, vomiting, and hypotension. Patient also has weakness and pale skin. COMPARISON: Comparison made with prior examination from 09/04/2018. FINDINGS: The lung bases are clear. The liver is normal in size. There is a tiny benign hepatic cyst. Gallbladder is unremarkable. There is no biliary ductal dilatation. Spleen is normal. The pancreas and adrenal glands are unremarkable. There are small bilateral renal cysts. The aorta demonstrates some atherosclerotic calcification. There is a 4.2 cm infrarenal abdominal aortic aneurysm. The bowel gas pattern is nonspecific. There is midline anterior abdominal wall hernia containing omental fat. There is no ascites. There is no free air. There are no focal inflammatory changes. A suprapubic catheter is in place. There is an unchanged mild compression fracture deformity of the L3 vertebral body. There is otherwise moderate thoracolumbar spondylosis. IMPRESSION: 1. Small hepatic and renal cysts. 2. 4.2 cm infrarenal abdominal aortic aneurysm. 3. Midline anterior abdominal wall hernia containing only omental fat. 4. No other acute abnormality in the abdomen or pelvis. Dictated on workstation # [id number] Dict: 04/16/191703 Trans: 04/16/191716 [id number] [id number] Interpreted by: ANNETTE OCAMPO MD Electronically signed by: Reviewed: Reviewed by Me Consults : Consulting Physician: MYRNA MCCOY DO Consults Notes 1530: Discussed the case with Myrna Mccoy and he agrees with not doing octreotide or TXA. He agrees with pantoprazole, blood, fluids and if the patient stabilizes we'll get a CT. Departure Communication (Admissions) Time/Spoke to Admitting Phy: 16:45 Discussed case lab and findings with Dr. Marcelo and she agrees to admit the patient to ICU with cardiology and general surgery consult. Time/Spoke to Consulting Phy: 16:00 Dr. Mccoy general surgery and Dr. Torrez cardiology consult. Dr. Mccoy came to the ER to interview the patient. Dr. Torrez nurse practitioner has already seen the patient. Impression Primary Impression: GI bleed Qualified Codes: K92.2 - Gastrointestinal hemorrhage, unspecified Additional Impressions: Acute blood loss anemia Shocks, hemorrhagic UTI (urinary tract infection) due to urinary indwelling catheter Qualified Codes: T83.511A - Infection and inflammatory reaction due to indwelling urethral catheter, initial encounter; N39.0 - Urinary tract infection, site not specified Disposition: ADMITTED INPATIENT Condition: Critical Admissions Decision to Admit Reason: Admit from ER (General) Decision to Admit/Date: April 16, 2019 Time/Decision to Admit Time: 15:30 Departure-Patient Inst. Referrals: SHANIQUE VEGA MD (PCP/Family) Primary Care Physician JESSICA JENKINS April 16, 2019 15:30
--- OUTSIDE RECORDS SUMMARY | 2019-04-16 15:30 | XMS REPORT ---
Author Author Migration, Doctor Organization [facility] Address Unknown Phone Unavailable Care Team Providers Care Children'S Counselor Name Role Phone Migration, Doctor Unavailable Unavailable PROBLEMS Type Condition ICD9-CM Code BYH63-HP Code Onset Dates Condition Status SNOMED Code Problem Coronary artery disease I25.10 Active 80182484 Problem Hypertension I10 Active 55287470 Problem Other chronic pain G89.29 Active 91612094 Problem Hyperlipidemia E78.5 Active 24743860 Problem Type 2 diabetes mellitus without complication, without long-term current use of insulin E11.9 Active 532901806 Problem Low back pain M54.5 Active 609858538 Problem Pharyngeal dysphagia R13.13 Active [id number] Problem Anxiety F41.9 Active 82726038 Problem Peripheral vascular disease I73.9 Active 790618214 Problem Suprapubic catheter Z93.59 Active 735525552 Problem Reactive depression F32.9 Active 15726607 Problem Neurogenic bladder N31.9 Active 435173342 Problem Ventral hernia without obstruction or gangrene K43.9 Active 329297385 Problem Insomnia G47.00 Active 968492176 Problem Paroxysmal atrial fibrillation I48.0 Active 014756149 Problem 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 Active 50753204 Problem Encounter for suprapubic catheter care Z43.5 Active [id number] ALLERGIES No Information ENCOUNTERS Encounter Location Date Diagnosis Via [facility] [address] [place] [id number] Jun, Via [facility] [address] [place] [id number] March, [facility] [address] [facility] [id number], [place] [address] Feb, Anxiety F41.9 [facility] [address] [facility] [id number], [place] [address] Feb, Other chronic pain G89.29 Via [facility] [address] [place] [id number] Feb, Neurogenic bladder N31.9 and Suprapubic catheter Z93.59 [facility] [address] [facility] [id number], [place] [address] Jan, Anxiety F41.9 [facility] [address] [facility] [id number] [place] [address] Dec, Anxiety F41.9 [facility] [address] [facility] [id number] [place] [address] Dec, Other chronic pain G89.29 and Anxiety F41.9 [facility] [address] [facility] [id number] [place] [address] Dec, Via [facility] [address] [place] [id number] Dec, Neurogenic bladder N31.9 and Suprapubic catheter Z93.59 [facility] [address] [facility] [id number] [place] [address] Nov, Other chronic pain G89.29 and Anxiety F41.9 [facility] [address] [facility] [id number], [place] [address] Nov, Via [facility] [address] [place] [id number] Nov, Suprapubic catheter Z93.59 [facility] [address] [facility] [id number], [place] [address] Oct, Other chronic pain G89.29 and Anxiety F41.9 [facility] [address] [facility] [id number], [place] [address] Oct, [facility] [address] [facility] [id number] [place] [address] Oct, Suprapubic catheter Z93.59 [facility] [address] [facility] [id number], [place] [address] Oct, Via [facility] [address] [place] [id number] Oct, [facility] [address] [id number], [place] [address] Oct, Anxiety F41.9 [facility] [id number] [place] [address] Oct, Anxiety F41.9 [facility] [address] [place] [id number] Oct, Other chronic pain G89.29 [facility] [address] [id number] [place] [address] Sep, Other chronic pain G89.29 [facility] [address] [place] [id number] Sep, Suprapubic catheter Z93.59 and Cervicalgia M54.2 [facility] [address] [id number], [place] [address] Sep, [facility] [address] [facility] [id number] [place] [address] Sep, [facility] [address] [facility] [id number], [place] [address] Sep, Via [employer] [facility] [address] [place] [id number] Aug, Cystitis N30.90 [facility] [address] [facility] [id number], [place] [address] Aug, [facility] [address] [facility] [id number] [place] [address] Aug, Other chronic pain G89.29 [facility] [address] [id number], [place] [address] Aug, Via [employer] [facility] [address] [place] [id number] Aug, Encounter for suprapubic catheter care Z43.5 [facility] [address] [id number], [place] [address] Jul, Via [employer] [facility] [address] [place] [id number] Jul, [facility] [address] [facility] [id number], [place] [address] 11 Jul, 2018 Other chronic pain G89.29 [facility] [address] [facility] [id number], [place] [address] Jul, [facility] [address] [facility] [id number], [place] [address] Jul, Via [facility] [address] [place] [id number] Jun, 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 [facility] [address] [facility] [id number], [place] [address] Jun, Other chronic pain G89.29 [facility] [address]00565100[place], [place] [address] Jun, Via [facility] [address] [place] [id number] May, Anxiety F41.9 ; Type 2 diabetes mellitus without complication, without long-term current use of insulin E11.9 ; Hypertension I10 ; Low back pain M54.5 ; Paroxysmal atrial fibrillation I48.0 and 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 [facility] [address] [id number], [place] [address] May, Other chronic pain G89.29 Via [facility] [address] [place] [id number] May, Low back pain M54.5 [facility] [address] [facility] [id number], [place] [address] May, [facility] [address]00565100[place], [place] [address] Apr, Other chronic pain G89.29 [facility] [address] [facility] [id number], [place] [address] Apr, [facility] [address]00565100[place], [place] [address] Apr, Via [facility] [address] [place] [id number] 19 Apr, 2018 Closed compression fracture of L3 lumbar vertebra with routine healing, subsequent encounter S32.030D [facility] [address] [place] [id number] 14 Apr, 2018 Low back pain M54.5 [facility] [address] [place] [id number] 12 Apr, 2018 Coccydynia M53.3 [facility] [address] [id number] [place] [address] March, [facility] [address] [id number] [place] [address] March, Other chronic pain G89.29 [facility] [address] [id number] [place] [address] March, [facility] [address] [id number] [place] [address] March, [facility] [address] [id number] [place] [address] Feb, [facility] [address] [id number] [place] [address] Feb, Other chronic pain G89.29 [facility] [address] [place] [id number] Feb, Other chronic pain G89.29 and Anxiety F41.9 [facility] [id number] [place] [address] Feb, [facility] [address] [id number] [place] [address] Jan, [facility] [address] [id number] [place] [address] Jan, [facility] [address] [facility] [id number], [place] [address] Jan, [facility] [address] [id number] [place] [address] Jan, [facility] [address] [facility] [id number], [place] [address] Dec, Via [facility] [address] [place] [id number] Dec, Peripheral vascular disease I73.9 ; 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 ; Other chronic pain G89.29 ; Anxiety F41.9 ; Reactive depression F32.9 ; Insomnia G47.00 and Type 2 diabetes mellitus without complication, without long-term current use of insulin E11.[address] [id number] [place] [address] Nov, [facility] [address] [id number][place] [address] Nov, Anxiety F41.9 [facility] [address] [facility] [id number], [place] [address] Nov, [facility] [address] [id number][place] [address] Nov, Anxiety F41.9 [facility] [address] [place] [id number] Nov, Status post surgery Z98.890 ; Confused R41.0 ; Anxiety F41.9 and Other chronic pain G89.29 [facility] [address] [id number], [place] [address] Nov, Other chronic pain G89.29 [facility] [address] [facility] [id number], [place] [address] Oct, [facility] [address] [id number][place] [address] Oct, Other chronic pain G89.29 [facility] [address] [facility] [id number], [place] [address] Oct, An[address] [facility] [address] [id number], [place] [address] Sep, Other chronic pain G89.29 [facility] [address] [id number][place] [address] Sep, Via [facility] [address] [place] [id number] Aug, Dysuria R30.0 and Anxiety F41.9 [facility] [address] [facility] [id number], [place] [address] Aug, [facility] [address] [id number], [place] [id number] Aug, Other chronic pain G89.29 [facility] [address] [facility] [id number], [place] [address] Jul, Other chronic pain G89.29 [facility] [address] [id number], [place] [address] Jun, [facility] [id number] [place] [id number] Jun, Other chronic pain G89.29 [facility] [address]00565100[place], [place] [address] Jun, [facility] [address] [place] [address] May, Other chronic pain G89.29 [facility] [address]65100[place], [place] [address] Apr, Other chronic pain G89.29 Via [facility] [address] [place] [id number] Apr, Reactive depression F32.9 and Pharyngeal dysphagia R13.13 [facility] [address] [facility] [id number], [place] [address] Apr, Urinary tract infection without hematuria, site unspecified N39.0 [facility] [address] [facility] [id number], [place] [address] March, Other chronic pain G89.29 [facility] [address]65100[place], [place] [address] Feb, Other chronic pain G89.29 [facility] [address]65100[place], [place] [address] Feb, [facility] [id number] [place] [id number] Feb, Via [facility] [address] [place] [address] Feb, Dysuria R30.0 and Ventral hernia without obstruction or gangrene K43.9 [facility] [address] [place] [address] Jan, Other chronic pain G89.29 [facility] [id number] [place] [id number] Dec, Other chronic pain G89.29 [facility] [id number] [place] [address] Nov, Other chronic pain G89.29 [facility] [address] [place] [address] Nov, Lymphadenitis I88.9 [facility] [address] [place] [address] Nov, Other chronic pain G89.29 [facility] [address] [place] [address] Nov, [facility] [id number] [place] [id number] Nov, Other chronic pain G89.29 [facility] [address] [place] [id number] Oct, Low back pain M54.5 ; Hypertension I10 and Type 2 diabetes mellitus without complication, without long-term current use of insulin E11.9 [facility] [address] [place] [address] Oct, [facility] [address] [place] [address] Oct, [facility] [address] [facility] [id number], [place] [address] Oct, [facility] [address] [facility] [id number], [place] [address] Oct, [facility] [address] [facility] [id number], [place] [address] Sep, [facility] [address] [facility] [id number], [place] [address] Sep, [facility] [address] [facility] [id number], [place] [address] Aug, Other chronic pain G89.29 [facility] [address] [facility] [id number], [place] [address] Jul, [facility] [address] [facility] [id number], [place] [address] Jul, [facility] [address] [facility] [id number], [place] [address] Jul, [facility] [address] [facility] [id number], [place] [address] Jun, [facility] [address] [id number], [place] [address] Jun, Via [facility] [address] [place] [id number] Jun, Low back pain M54.5 ; Other chronic pain G89.29 and Coronary artery disease I25.10 [facility] [address] [facility] [id number], [place] [address] Jun, [facility] [address] [facility] [id number], [place] [address] May, [facility] [address] [facility] [id number], [place] [address] May, [facility] [address] [facility] [id number], [place] [address] May, Other chronic pain G89.29 [facility] [address]00565100[place], [place] [address] 13 May, 2016 [facility] [address]00565100[place], [place] [address] 28 Apr, 2016 [facility] [address]00565100[place], [place] [address] 17 Apr, 2016 Acute cystitis without hematuria N30.00 [facility] [id number] [place] [address] 16 Apr, 2016 Acute cystitis without hematuria N30.00 ; Coronary artery disease I25.10 ; Low back pain M54.5 and Other chronic pain G89.29 [facility] [address] 0990165100[place], [place] [address] 13 Apr, 2016 Other chronic pain G89.29 [facility] [id number] [place] [address] March, Other chronic pain G89.29 [facility] [address]00565100[place], [place] [address] 18 Feb, 2016 [facility] [id number] [place] [address] 15 Feb, 2016 Arthritis M19.90 [facility] [address]00565100[place], [place] [address] Feb, [facility] [address]65100[place], [place] [address] 30 Jan, 2016 [facility] [address]00565100[place], [place] [address] Jan, [facility] [address] [id number], [place] [address] Jan, Other chronic pain G89.29 [facility] [address]65100[place], [place] [address] 17 Jan, 2016 Hypertension I10 ; Coronary artery disease I25.10 and Insomnia G47.00 [facility] [address]00565100[place], [place] [address] Jan, [facility] [address] [place] [address] Dec, Right hip pain M25.551 [facility] [address] [id number], [place] [address] Dec, [facility] [address] [id number], [place] [address] Dec, [facility] [address] [place] [address], [place] [address] Dec, [facility] [address] [place] [address] Dec, Other chronic pain G89.29 [facility] [id number] [place] [address] Dec, [facility] [address]65100[place], [place] [address] Nov, [facility] [address] [place] [address] Nov, Other chronic pain G89.29 [facility] [address]00565100[place], [place] [address] Nov, Right hip pain M25.551 and Coronary artery disease I25.10 [facility] [address]00565100[place], [place] [address] Nov, Other chronic pain G89.29 [facility] [address]65100[place], [place] [address] Oct, [facility] [address]00565100[place], [place] [address] Oct, [facility] [address]00565100[place], [place] [address] Sep, [facility] [address]00565100[place], [place] [address] Sep, [facility] [id number] [place] [address] Aug, [facility] [id number] [place] [address] Aug, Hypertension I10 ; Coronary artery disease I25.10 and Arthritis M19.90 [facility] [id number] [place] [address] Jun, [facility] [id number] [place] [address] Jun, Essential hypertension, benign 401.1 ; Other chronic pain 338.29 and Chronic airway obstruction, not elsewhere classified [address] [facility] [id number] [place] [address] Jun, [facility] [address] [id number], [place] [address] Jun, [facility] [id number] [place] [address] Jun, [facility] [address] [place] [address] May, [facility] [address]00565100[place], [place] [address] May, [facility] [address]00565100[place], [place] [address] Apr, [facility] [id number] [place] [address], [place] [address] Apr, [facility] [address]100[facility] [place] [address] Apr, [facility] [address] [place] [address] March, [facility] [address] [id number] [place] [address] March, [facility] [address] [id number] [place] [address] March, [facility] [address] [id number] [place] [address] March, [facility] [address] [id number] [place] [address] March, Sialadenitis 527.2 [facility] [address] [id number] [place] [address] Feb, [facility] [address] [id number] [place] [address] Feb, [facility] [address] [id number] [place] [address] Feb, [facility] [address] [id number] [place] [address] Feb, [facility] [address] [id number] [place] [address] Feb, [facility] [address] [id number] [place] [address] Jan, [facility] [address] [id number] [place] [address] Jan, [facility] [address] [id number], [place] [address] Jan, [facility] [address] [id number] [place] [address] Jan, [facility] [address] [id number] [place] [address] Jan, [facility] [address] [id number] [place] [address] Jan, [facility] [address] [id number] [place] [address] Dec, [facility] [place] [facility] [address] [id number] [place] [address] Dec, [facility] [place] [facility] [address] [id number] [place] [address] Dec, 2014 [facility] [place] [facility] [address] [id number] [place] [address] Dec, 2014 [facility] [place] [facility] [address] [id number] [place] [address] Dec, [facility] [place] [facility] [address] [id number] [place] [address] Dec, [facility] [place] [facility] [address] [id number] [place] [address] Nov, [facility] [place] [facility] [address] [id number] [place] [address] Nov, [facility] [place] [facility] [address] [id number] [place] [address] Nov, [facility] [place] [facility] [address] [id number] [place] [address] Nov, [facility] [place] [facility] [address] [id number] [place] [address] Nov, [facility] [place] [facility] [address] [id number] [place] [address] Nov, [facility] [place] [facility] [address] [id number] [place] [address] Nov, [facility] [place] [facility] [address] [id number] [place] [address] Nov, [facility] [place] [facility] [address] [id number] [place] [address] Nov, [facility] [place] [facility] [address] [id number], [place] [address] Nov, [facility] [place] [facility] [address] [id number] [place] [address] Nov, [facility] [place] [facility] [address] [id number] [place] [address] Nov, [facility] [place] [facility] [address] [id number] [place] [address] Nov, [facility] [place] [facility] [address] [id number] [place] [address] Nov, [facility] [place] [facility] [address] [id number] [place] [address] Oct, [facility] [place] [facility] [address] [id number] [place] [address] Oct, [facility] [place] [facility] [address] [id number] [place] [address] Oct, [facility] [place] [facility] [address] [id number] [place] [address] Oct, [facility] [place] [facility] [address] [id number] [place] [address] Oct, [facility] [place] [facility] [address] [id number] [place] [address] Oct, [facility] [place] [facility] [address] [id number] [place] [address] 17 Oct, 2014 [facility] [place] [facility] [address] [id number] [place] [address] Oct, [facility] [place] [facility] [address] [id number] [place] [address] Oct, [facility] [place] [facility] [address] [id number] [place] [address] Sep, [facility] [place] [facility] [address] [id number] [place] [address] Sep, [facility] [place] [facility] [address] [id number], [place] [address] Sep, [facility] [place] [facility] [address] [id number] [place] [address] Sep, [facility] [place] [facility] [address] [id number] [place] [address] Sep, [facility] [place] [facility] [address] [id number] [place] [address] Sep, [facility] [place] [facility] [address] [id number] [place] [address] Sep, [facility] [place] [facility] [address] [id number] [place] [address] Sep, [facility] [place] [facility] [address] [id number] [place] [address] Sep, [facility] [place] [facility] [address] [id number] [place] [address] Sep, [facility] [place] [facility] [address] [id number], [place] [address] Sep, [facility] [place] [facility] [address] [id number], [place] [address] Sep, [facility] [place] [facility] [address] [id number], [place] [address] Aug, [facility] [place] [facility] [address] [id number], [place] [address] Aug, [facility] [place] [facility] [address] [id number], [place] [address] Aug, [facility] [place] [facility] [address] [id number], [place] [address] Aug, [facility] [place] [facility] [address] [id number], [place] [address] Aug, [facility] [place] [facility] [address] [id number], [place] [address] Aug, [facility] [place] [facility] [address] [id number] [place] [address] 17 Aug, 2014 [facility] [place] [facility] [address] [id number] [place] [address] 17 Aug, 2014 [facility] [place] [facility] [address] [id number] [place] [address] 30 Jul, 2013 [facility] [place] [facility] [address] [id number] [place] [address] 30 Jul, 2013 [facility] [place] [facility] [address] [id number] [place] [address] 30 Jul, 2013 [facility] [place] [facility] [address] [id number] [place] [address] 30 Jul, 2013 [facility] [place] [facility] [address] [id number] [place] [address] 25 Jul, 2013 [facility] [place] [facility] [address] [id number] [place] [address] 25 Jul, 2013 [facility] [place] [facility] [address] [id number] [place] [address] 15 Jul, 2014 [facility] [place] [facility] [address] [id number] [place] [address] 15 Jul, 2014 [facility] [place] [facility] [address] [id number] [place] [address] 11 Jul, 2014 [facility] [place] [facility] [address] [id number] [place] [address] Jul, [facility] [place] [facility] [address] [id number] [place] [address] Jun, [facility] [place] [facility] [address] [id number] [place] [address] Jun, [facility] [place] [facility] [address] [id number] [place] [address] Jun, [facility] [place] [facility] [address] [id number] [place] [address] Jun, [facility] [place] [facility] [address] [id number] [place] [address] Jun, [facility] [place] [facility] [address] [id number] [place] [address] Jun, [facility] [place] [facility] [address] [id number] [place] [address] Jun, [facility] [place] [facility] [address] [id number] [place] [address] Jun, [facility] [place] [facility] [address] [id number] [place] [address] Jun, [facility] [place] [facility] [address] [id number] [place] [address] Jun, [facility] [place] [facility] [address] [id number] [place] [address] Jun, [facility] [place] [facility] [address] [id number] [place] [address] Jun, [facility] [place] [facility] [address] [id number] [place] [address] Jun, [facility] [place] [facility] [address] [id number] [place] [address] Jun, [facility] [place] [facility] [address] [id number] [place] [address] Jun, [facility] [place] [facility] [address] [id number] [place] [address] Jun, [facility] [place] [facility] [address] [id number] [place] [address] Jun, [facility] [place] [facility] [address] [id number] [place] [address] Jun, [facility] [place] [facility] [address] [id number] [place] [address] Jun, [facility] [place] [facility] [address] [id number] [place] [address] Jun, [facility] [place] [facility] [address] [id number] [place] [address] Jun, [facility] [place] [facility] [address] [id number] [place] [address] Jun, [facility] [place] [facility] [address] [id number] [place] [address] May, [facility] [place] [facility] [address] [id number] [place] [address] May, [facility] [place] [facility] [address] [id number] [place] [address] May, [facility] [place] [facility] [address] [id number] [place] [address] May, [facility] [place] [facility] [address] [id number] [place] [address] May, [facility] [place] [facility] [address] [id number] [place] [address] May, [facility] [place] [facility] [address] [id number] [place] [address] May, [facility] [place] [facility] [address] [id number] [place] [address] May, [facility] [place] [facility] [address] [id number] [place] [address] May, [facility] [place] [facility] [address] [id number] [place] [address] May, [facility] [place] [facility] [address] [id number] [place] [address] May, [facility] [place] [facility] [address] [id number] [place] [address] May, [facility] [place] [facility] [address] [id number] [place] [address] May, [facility] [place] [facility] [address] [id number] [place] [address] Apr, [facility] [place] [facility] [address] [id number] [place] [address] Apr, [facility] [place] [facility] [address] [id number] [place] [address] Apr, [facility] [place] [facility] [address] [id number] [place] [address] Apr, [facility] [place] [facility] [address] [id number] [place] [address] Apr, [facility] [place] [facility] [address] [id number] [place] [address] Apr, [facility] [place] [facility] [address] [id number] [place] [address] Apr, [facility] [place] [facility] [address] [id number] [place] [address] Apr, [facility] [place] [facility] [address] [id number] [place] [address] Apr, [facility] [place] [facility] [address] [id number] [place] [address] March, [facility] [place] [facility] [address] [id number] [place] [address] March, [facility] [place] [facility] [address] [id number] [place] [address] March, [facility] [place] [facility] [address] [id number] [place] [address] March, [facility] [place] [facility] [address] [id number] [place] [address] March, [facility] [place] [facility] [address] [id number] [place] [address] March, [facility] [place] [facility] [address] [id number] [place] [address] March, [facility] [place] [facility] [address] [id number] [place] [address] March, [facility] [place] [facility] [address] [id number] [place] [address] March, [facility] [place] [facility] [address] [id number] [place] [address] March, [facility] [place] [facility] [address] [id number] [place] [address] March, [facility] [place] [facility] [address] [id number] [place] [address] March, [facility] [place] [facility] [address] [id number] [place] [address] March, [facility] [place] [facility] [address] [id number] [place] [address] March, [facility] [place] [facility] [address] [id number] [place] [address] March, [facility] [place] [facility] [address] [id number] [place] [address] March, [facility] [place] [facility] [address] [id number] [place] [address] March, [facility] [place] [facility] [address] [id number] [place] [address] March, [facility] [place] [facility] [address] [id number] [place] [address] March, [facility] [place] [facility] [address] [id number] [place] [address] March, [facility] [place] [facility] [address] [id number] [place] [address] Feb, [facility] [place] [facility] [address] [id number] [place] [address] Feb, [facility] [place] [facility] [address] [id number] [place] [address] 24 Feb, 2014 [facility] [place] [facility] [address] [id number] [place] [address] Feb, [facility] [place] [facility] [address] [id number] [place] [address] Feb, [facility] [place] [facility] [address] [id number] [place] [address] Feb, [facility] [place] [facility] [address] [id number] [place] [address] Feb, [facility] [place] [facility] [address] [id number] [place] [address] Feb, [facility] [place] [facility] [address] [id number] [place] [address] Jan, [facility] [place] [facility] [address] [id number] [place] [address] Jan, [facility] [place] [facility] [address] [id number] [place] [address] Jan, [facility] [place] [facility] [address] [id number] [place] [address] Jan, [facility] [place] [facility] [address] [id number] [place] [address] Jan, [facility] [place] [facility] [address] [id number] [place] [address] Jan, [facility] [place] [facility] [address] [id number] [place] [address] Jan, [facility] [place] [facility] [address] [id number] [place] [address] Jan, [facility] [place] [facility] [address] [id number] [place] [address] Jan, [facility] [place] [facility] [address] [id number] [place] [address] Jan, [facility] [place] [facility] [address] [id number] [place] [address] Dec, [facility] [place] [facility] [address] [id number] [place] [address] Dec, [facility] [place] [facility] [address] [id number] [place] [address] Dec, [facility] [place] [facility] [address] [id number] [place] [address] Dec, [facility] [place] [facility] [address] [id number] [place] [address] Dec, [facility] [place] [facility] [address] [id number] [place] [address] Dec, [facility] [place] [facility] [address] [id number] [place] [address] Dec, [facility] [place] [facility] [address] [id number] [place] [address] Dec, [facility] [place] [facility] [address] [id number] [place] [address] Nov, [facility] [place] [facility] [address] [id number] [place] [address] Nov, [facility] [place] [facility] [address] [id number] [place] [address] Nov, [facility] [place] [facility] [address] [id number] [place] [address] Nov, [facility] [place] [facility] [address] [id number] [place] [address] Nov, [facility] [place] [facility] [address] [id number] [place] [address] Nov, [facility] [place] [facility] [address] [id number] [place] [address] Nov, [facility] [place] [facility] [address] [id number] [place] [address] Nov, [facility] [address] [id number] [place] [address] Nov, [facility] [place] [facility] [address] [id number] [place] [address] Nov, [facility] [place] [facility] [address] [id number] [place] [address] Nov, [facility] [place] [facility] [address] [id number] [place] [address] Nov, [facility] [place] [facility] [address] [id number] [place] [address] Nov, [facility] [place] [facility] [address] [id number] [place] [address] Oct, [facility] [address] [id number] [place] [address] 30 Oct, 2013 [facility] [place] [facility] [address] [id number] [place] [address] Oct, [facility] [place] [facility] [address] [id number] [place] [address] Oct, [facility] [place] [facility] [address] [id number] [place] [address] Oct, [facility] [place] [facility] [address] [id number] [place] [address] Oct, [facility] [place] [facility] [address] [id number] [place] [address] 18 Oct, 2013 [facility] [place] [facility] [address] [id number] [place] [address] 18 Oct, 2013 [facility] [place] [facility] [address] [id number] [place] [address] 17 Oct, 2013 [facility] [place] [facility] [address] [id number] [place] [address] 17 Oct, 2013 [facility] [place] [facility] [address] [id number] [place] [address] Oct, [facility] [place] [facility] [address] [id number] [place] [address] Oct, [facility] [place] [facility] [address] [id number] [place] [address] Oct, [facility] [place] [facility] [address] [id number] [place] [address] Oct, [facility] [place] [facility] [address] [id number] [place] [address] Sep, [facility] [place] [facility] [address] [id number] [place] [address] Sep, [facility] [place] [facility] [address] [id number] [place] [address] Sep, [facility] [place] [facility] [address] [id number] [place] [address] Sep, [facility] [place] [facility] [address] [id number] [place] [address] Sep, [facility] [place] [facility] [address] [id number] [place] [address] Sep, [facility] [place] [facility] [address] [id number] [place] [address] Sep, [facility] [place] [facility] [address] [id number] [place] [address] Sep, [facility] [place] [facility] [address] [id number] [place] [address] Sep, [facility] [place] [facility] [address] [id number] [place] [address] Sep, [facility] [place] [facility] [address] [id number] [place] [address] Aug, [facility] [place] [facility] [address] [id number], [place] [address] 24 Aug, 2013 [facility] [place] [facility] [address] [id number] [place] [address] 24 Aug, 2013 [facility] [place] [facility] [address] [id number], [place] [address] 24 Aug, 2013 [facility] [place] [facility] [address] [id number] [place] [address] Aug, [facility] [place] [facility] [address] [id number], [place] [address] Aug, 2012 [facility] [place] [facility] [address] [id number] [place] [address] Aug, [facility] [place] [facility] [address] [id number], [place] [address] Aug, [facility] [place] [facility] [address] [id number], [place] [address] Aug, [facility] [place] [facility] [address] [id number], [place] [address] 22 Aug, 2013 [facility] [place] [facility] [address] [id number], [place] [address] 18 Aug, 2013 [facility] [place] [facility] [address] [id number], [place] [address] 18 Aug, 2013 [facility] [place] [facility] [address] [id number], [place] [address] 18 Aug, 2013 [facility] [place] [facility] [address] [id number], [place] [address] 18 Aug, 2012 [facility] [place] [facility] [address] [id number], [place] [address] 17 Aug, 2012 [facility] [place] [facility] [address] [id number], [place] [address] 14 Aug, 2012 [facility] [place] [facility] [address] [id number], [place] [address] 14 Aug, 2012 [facility] [place] [facility] [address] [id number] [place] [address] Aug, [facility] [place] [facility] [address] [id number] [place] [address] 20 Jul, 2013 [facility] [place] [facility] [address] [id number] [place] [address] 19 Jul, 2013 [facility] [place] [facility] [address] [id number] [place] [address] 18 Jul, 2013 [facility] [place] [facility] [address] [id number] [place] [address] Jul, [facility] [place] [facility] [address] [id number] [place] [address] Jul, [facility] [place] [facility] [address] [id number] [place] [address] Jun, [facility] [place] [facility] [address] [id number] [place] [address] Jun, [facility] [address] [id number] [place] [address] Jun, [facility] [place] [facility] [address] [id number] [place] [address] Jun, [facility] [address] [id number] [place] [address] Jun, [facility] [place] [facility] [address] [id number] [place] [address] Jun, [facility] [place] [facility] [address] [id number] [place] [address] Jun, [facility] [place] [facility] [address] [id number] [place] [address] Jun, [facility] [place] [facility] [address] [id number] [place] [address] Jun, [facility] [place] [facility] [address] [id number] [place] [address] Jun, [facility] [place] [facility] [address] [id number] [place] [address] May, [facility] [place] [facility] [address] [id number] [place] [address] May, [facility] [place] [facility] [address] [id number] [place] [address] May, [facility] [place] [facility] [address] [id number] [place] [address] May, [facility] [place] [facility] [address] [id number] [place] [address] May, [facility] [place] [facility] [address] [id number] [place] [address] May, [facility] [place] [facility] [address] [id number] [place] [address] May, [facility] [place] [facility] [address] [id number] [place] [address] May, [facility] [place] [facility] [address] [id number] [place] [address] May, [facility] [place] [facility] [address] [id number] [place] [address] Apr, [facility] [place] [facility] [address] [id number] [place] [address] Apr, [facility] [place] [facility] [address] [id number] [place] [address] Apr, [facility] [place] [facility] [address] [id number] [place] [address] Apr, [facility] [place] [facility] [address] [id number] [place] [address] Apr, [facility] [place] [facility] [address] [id number] [place] [address] Apr, [facility] [place] [facility] [address] [id number], [place] [address] Apr, [facility] [address] [id number] [place] [address] March, [facility] [address] [id number] [place] [address] Feb, [facility] [address] [id number] [place] [address] Feb, [facility] [address] [id number] [place] [address] Feb, [facility] [address] [id number] [place] [address] Jan, [facility] [address] [id number] [place] [address] Jan, [facility] [address] [id number] [place] [address] Jan, [facility] [address] [id number] [place] [address] 14 Jan, 2013 [facility] [address] [id number] [place] [address] Jan, [facility] [address] [facility] [id number] [place] [address] Jan, [facility] [address] [id number] [place] [address] Jan, [facility] [address] [id number] [place] [address] Jan, [facility] [address] [id number] [place] [address] Dec, [facility] [place] [facility] [address] [id number] [place] [address] Dec, [facility] [address] [facility] [id number], [place] [address] Dec, [facility] [address] [id number] [place] [address] 11 Dec, 2012 [facility] [address] [id number] [place] [address] 07 Dec, 2012 [facility] [place] [facility] [address] [id number] [place] [address] 06 Dec, 2012 [facility] [place] [facility] [address] [id number] [place] [address] 05 Dec, 2012 [facility] [address] [id number] [place] [address] Nov, [facility] [place] [facility] [address] [id number] [place] [address] 24 Nov, 2012 [facility] [address] [id number] [place] [address] Nov, [facility] [address] [id number] [place] [address] 15 Nov, 2012 [facility] [place] [facility] [address] [id number] [place] [address] Nov, [facility] [address] [id number] [place] [address] Nov, [facility] [place] [facility] [address] [id number] [place] [address] Nov, [facility] [place] [facility] [address] [id number] [place] [address] Oct, [facility] [place] [facility] [address] [id number] [place] [address] Oct, [facility] [place] [facility] [address] [id number] [place] [address] Oct, [facility] [place] [facility] [address] [id number] [place] [address] Oct, [facility] [place] [facility] [address] [id number], [place] [address] Oct, [facility] [place] [facility] [address] [id number] [place] [address] Oct, [facility] [place] [facility] [address] [id number] [place] [address] Oct, [facility] [place] [facility] [address] [id number] [place] [address] Oct, [facility] [place] [facility] [address] [id number] [place] [address] Oct, [facility] [place] [facility] [address] [id number] [place] [address] Oct, [facility] [place] [facility] [address] [id number] [place] [address] Oct, [facility] [place] [facility] [address] [facility] [id number] [place] [address] Oct, [facility] [place] [facility] [address] [id number] [place] [address] Sep, [facility] [place] [facility] [address] [id number] [place] [address] Sep, [facility] [place] [facility] [address] [facility] [id number], [place] [address] Sep, [facility] [place] [facility] [address] [id number], [place] [address] Sep, [facility] [place] [facility] [address] [id number], [place] [address] Sep, [facility] [place] [facility] [address] [id number], [place] [address] Sep, [facility] [place] [facility] [address] [id number], [place] [address] Sep, [facility] [place] [facility] [address] [facility] [id number] [place] [address] Sep, [facility] [place] [facility] [address] [id number] [place] [address] Sep, [facility] [place] [facility] [address] [id number] [place] [address] Sep, [facility] [place] [facility] [address] [id number] [place] [address] Sep, [facility] [place] [facility] [address] [id number] [place] [address] Aug, [facility] [place] [facility] [address] [id number] [place] [address] Aug, [facility] [place] [facility] [address] [id number] [place] [address] Aug, [facility] [place] [facility] [address] [id number] [place] [address] Aug, [facility] [place] [facility] [address] [id number] [place] [address] Aug, [facility] [place] [facility] [address] [id number] [place] [address] Aug, [facility] [facility] [address] [id number] [place] [address] Aug, [facility] [place] [facility] [address] [id number] [place] [address] Aug, [facility] [place] [facility] [address] [id number] [place] [address] Aug, [facility] [place] [facility] [address] [id number] [place] [address] Aug, [facility] [place] [facility] [address] [id number] [place] [address] 22 Jul, 2012 [facility] [place] [facility] [address] [id number] [place] [address] 20 Jul, 2012 [facility] [place] [facility] [address] [id number] [place] [address] Jul, [facility] [place] [facility] [address] [id number] [place] [address] Jul, [facility] [place] [facility] [address] [id number] [place] [address] Jun, [facility] [place] [facility] [address] [id number] [place] [address] Jun, [facility] [place] [facility] [address] [id number] [place] [address] Jun, [facility] [place] [facility] [address] [id number] [place] [address] Jun, [facility] [place] [facility] [address] [id number] [place] [address] Jun, [facility] [place] [facility] [address] [id number] [place] [address] Jun, [facility] [place] [facility] [address] [id number] [place] [address] Jun, [facility] [place] [facility] [address] [id number] [place] [address] May, [facility] [place] [facility] [address] [id number] [place] [address] May, [facility] [place] [facility] [address] [id number] [place] [address] May, [facility] [place] [facility] [address] [id number] [place] [address] May, [facility] [place] [facility] [address] [id number] [place] [address] May, [facility] [place] [facility] [address] [id number] [place] [address] Apr, [facility] [place] [facility] [address] [id number] [place] [address] Apr, [facility] [facility] [address] [id number] [place] [address] 13 Apr, 2012 [facility] [address] [id number] [place] [address] Apr, [facility] [address] [id number] [place] [address] Apr, [facility] [place] [address] [id number] [place] [address] March, [facility] [facility] [address] [id number] [place] [address] March, [facility] [address] [id number] [place] [address] March, [facility] [address] [id number] [place] [address] March, [facility] [address] [id number] [place] [address] March, [facility] [address] [id number] [place] [address] March, [facility] [facility] [address] [id number] [place] [address] March, [facility] [address] [id number] [place] [address] March, [facility] [address] [id number] [place] [address] March, [facility] [address] [id number] [place] [address] March, [facility] [address] [id number] [place] [address] Feb, [facility] [address] [id number] [place] [address] Feb, [facility] [address] [id number] [place] [address] Feb, [facility] [address] [id number] [place] [address] Feb, [facility] [facility] [address] [id number] [place] [address] Feb, [facility] [facility] [address] [id number] [place] [address] Feb, [facility] [address] [id number] [place] [address] Feb, [facility] [address] [id number] [place] [address] Feb, [facility] [address] [id number] [place] [address] Feb, [facility] [address] [id number] [place] [address] Jan, [facility] [address] [id number] [place] [address] Jan, [facility] [address] [id number] [place] [address] Jan, [facility] [address] [id number] [place] [address] Jan, [facility] [address] [id number] [place] [address] Dec, [facility] [address] [id number] [place] [address] Dec, [facility] [address] [id number] [place] [address] Nov, [facility] [address] [id number] [place] [address] Nov, [facility] [address] [id number] [place] [address] Nov, [facility] [address] [id number], [place] [address] Nov, [facility] [address] [facility] [id number], [place] [address] Nov, [facility] [address] [facility] [id number], [place] [address] Oct, [facility] [address] [facility] [id number], [place] [address] Oct, [facility] [address] [facility] [id number], [place] [address] Oct, [facility] [address] [facility] [id number], [place] [address] Oct, [facility] [address] [facility] [id number], [place] [address] Oct, [facility] [id number], [place] [address] Oct, [facility] [id number], [place] [address] Oct, [facility] [address] [id number], [place] [address] Oct, [facility] [address] [id number], [place] [address] Sep, IMMUNIZATIONS No Known Immunizations SOCIAL HISTORY Never Assessed REASON FOR VISIT [place] [place] VITAL SIGNS MEDICATIONS Unknown Medications RESULTS No Results PROCEDURES No Known procedures INSTRUCTIONS MEDICATIONS ADMINISTERED No Known Medications MEDICAL (GENERAL) HISTORY Type Description Date 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
--- OUTSIDE RECORDS SUMMARY | 2019-04-16 15:31 | XMS REPORT ---
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 Name Role Phone Migration, Doctor Unavailable Unavailable PROBLEMS Type Condition ICD9-CM Code [id number] Code Onset Dates Condition Status SNOMED Code Problem Coronary artery disease I25.10 Active 73149005 Problem Hypertension I10 Active 92999150 Problem Other chronic pain G89.29 Active 40546150 Problem Hyperlipidemia E78.5 Active 70786577 Problem Type 2 diabetes mellitus without complication, without long-term current use of insulin E11.9 Active 619455371 Problem Low back pain M54.5 Active 204625769 Problem Pharyngeal dysphagia R13.13 Active 53420016996199 Problem Anxiety F41.9 Active 27359958 Problem Peripheral vascular disease I73.9 Active 443018162 Problem Suprapubic catheter Z93.59 Active 489885869 Problem Reactive depression F32.9 Active 72609246 Problem Neurogenic bladder N31.9 Active 294625559 Problem Ventral hernia without obstruction or gangrene K43.9 Active 853665763 Problem Insomnia G47.00 Active 776272249 Problem Paroxysmal atrial fibrillation I48.0 Active 288145099 Problem 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 Active 48071654 Problem Encounter for suprapubic catheter care Z43.5 Active [id number] ALLERGIES No Information ENCOUNTERS Encounter Location Date Diagnosis Via [facility] [address] [place] [id number] Jun, Via [facility] [address] [place] [id number] March, [facility] [address] [facility] [id number], [place] [address] Feb, Anxiety F41.9 [facility] [address] [facility] [id number], [place] [address] Feb, Other chronic pain G89.29 Via [facility] [address] [place] [id number] Feb, Neurogenic bladder N31.9 and Suprapubic catheter Z93.59 [facility] [address] [facility] [id number], [place] [address] Jan, Anxiety F41.9 [facility] [address] [facility] [id number] [place] [address] Dec, Anxiety F41.9 [facility] [address] [facility] [id number] [place] [address] Dec, Other chronic pain G89.29 and Anxiety F41.9 [facility] [address] [facility] [id number] [place] [address] Dec, Via [facility] [address] [place] [id number] Dec, Neurogenic bladder N31.9 and Suprapubic catheter Z93.59 [facility] [address] [facility] [id number] [place] [address] Nov, Other chronic pain G89.29 and Anxiety F41.9 [facility] [address] [facility] [id number], [place] [address] Nov, [facility] [address] [place] [id number] Nov, Suprapubic catheter Z93.59 [facility] [address] [facility] [id number], [place] [address] Oct, Other chronic pain G89.29 and Anxiety F41.9 [facility] [address] [facility] [id number], [place] [address] Oct, [facility] [address] [facility] [id number] [place] [address] Oct, Suprapubic catheter Z93.59 [facility] [address] [facility] [id number], [place] [address] Oct, Via [facility] [employer] [address] [place] [id number] Oct, [facility] [address] [id number], [place] [address] Oct, Anxiety F41.9 [facility] [address] [id number] [place] [address] Oct, Anxiety F41.9 [facility] [employer] [address] [place] [id number] Oct, Other chronic pain G89.29 [facility] [address] [id number] [place] [address] Sep, Other chronic pain G89.29 [facility] [address] [place] [id number] Sep, Suprapubic catheter Z93.59 and Cervicalgia M54.2 [facility] [address] [id number], [place] [address] Sep, [facility] [address] [facility] [id number] [place] [address] Sep, [facility] [address] [facility] [id number], [place] [address] Sep, Via [facility] [address] [place] [id number] Aug, Cystitis N30.90 [facility] [address] [facility] [id number], [place] [address] Aug, [facility] [address] [facility] [id number] [place] [address] Aug, Other chronic pain G89.29 [facility] [address] [id number], [place] [address] Aug, Via [facility] [address] [place] [id number] Aug, Encounter for suprapubic catheter care Z43.5 [facility] [address] [id number], [place] [address] Jul, Via [facility] [address] [place] [id number] Jul, [facility] [address] [facility] [id number], [place] [address] 11 Jul, 2018 Other chronic pain G89.29 [facility] [address] [facility] [id number], [place] [address] Jul, [facility] [address] [facility] [id number], [place] [address] Jul, Via [facility] [address] [place] [id number] Jun, 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 [facility] [address] [facility] [id number], [place] [address] Jun, Other chronic pain G89.29 [facility] [address]65[address] [address] Jun, Via [facility] [address] [place] [id number] May, Anxiety F41.9 ; Type 2 diabetes mellitus without complication, without long-term current use of insulin E11.9 ; Hypertension I10 ; Low back pain M54.5 ; Paroxysmal atrial fibrillation I48.0 and 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 [facility] [address] [id number] [address] May, Other chronic pain G89.29 Via [facility] [employer] [address] [place] [id number] May, Low back pain M54.5 [facility] [address] [facility] [id number], [place] [address] May, [facility] [address]65[address], [place] [address] Apr, Other chronic pain G89.29 [facility] [address] [facility] [id number], [place] [address] Apr, [facility] [address]65[address], [place] [address] Apr, Via [employer] [address] [place] [id number] 19 Apr, 2018 Closed compression fracture of L3 lumbar vertebra with routine healing, subsequent encounter S32.030D Via [facility] [address] [place] [id number] 14 Apr, 2018 Low back pain M54.5 Via [employer] [address] [place] [id number] 12 Apr, 2018 Coccydynia M53.3 [facility] [address] [id number] [place] [address] March, [facility] [address] [id number] [place] [address] March, Other chronic pain G89.29 [facility] [address] [id number] [place] [address] March, [facility] [address] [id number] [place] [address] March, [facility] [address] [id number] [place] [address] Feb, [facility] [address] [id number] [place] [address] Feb, Other chronic pain G89.29 Via [employer] [address] [place] [id number] Feb, Other chronic pain G89.29 and Anxiety F41.9 [facility] [address] [id number] [place] [address] Feb, [facility] [address] [id number] [place] [address] Jan, [facility] [address] [id number] [place] [address] Jan, [facility] [address] [facility] [id number], [place] [address] Jan, [facility] [address] [id number] [place] [address] Jan, [facility] [address] [facility] [id number], [place] [address] Dec, Via [employer] [address] [place] [id number] Dec, Peripheral vascular disease I73.9 ; 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 ; Other chronic pain G89.29 ; Anxiety F41.9 ; Reactive depression F32.9 ; Insomnia G47.00 and Type 2 diabetes mellitus without complication, without long-term current use of insulin E11.[address] [id number] [place] [address] Nov, [facility] [address] [id number][place] [id number] Nov, Anxiety F41.9 [facility] [address] [facility] [id number], [place] [address] Nov, [facility] [address] [id number][place] [address] Nov, Anxiety F41.9 Via [employer] [address] [place] [id number] Nov, Status post surgery Z98.890 ; Confused R41.0 ; Anxiety F41.9 and Other chronic pain G89.29 [facility] [address] [id number][place] [address] Nov, Other chronic pain G89.29 [facility] [address] [facility] [id number], [place] [address] Oct, [facility] [address] [id number][place] [address] Oct, Other chronic pain G89.29 [facility] [address] [facility] [id number], [place] [address] Oct, Anxiety F41.9 [facility] [address] [id number][place] [address] Sep, Other chronic pain G89.29 [facility] [address] [id number], [place] [id number] Sep, Via [facility] [address] [place] [id number] Aug, Dysuria R30.0 and Anxiety F41.9 [facility] [address] [facility] [id number], [place] [address] Aug, [facility] [address] [id number][place] [id number] Aug, Other chronic pain G89.29 [facility] [address] [facility] [id number], [place] [address] Jul, Other chronic pain G89.29 [facility] [address] [id number] [id number] Jun, [facility] [id number] [place] [id number] Jun, Other chronic pain G89.29 [facility] [address]65100[place], [place] [address] Jun, [facility] [id number] [place] [address] May, Other chronic pain G89.29 [facility] [address]65100[place], [place] [address] Apr, Other chronic pain G89.29 Via [employer] [employer] [address] [place] [id number] Apr, Reactive depression F32.9 and Pharyngeal dysphagia R13.13 [facility] [address] [facility] [id number], [place] [address] Apr, Urinary tract infection without hematuria, site unspecified N39.0 [facility] [address] [facility] [id number], [place] [address] March, Other chronic pain G89.29 [facility] [address]65100[place], [place] [address] Feb, Other chronic pain G89.29 [facility] [address]00565100[place], [place] [address] Feb, [facility] [id number] [place] [id number] Feb, Via [facility] [employer] [facility] [employer] [address] [place] [id number] Feb, Dysuria R30.0 and Ventral hernia without obstruction or gangrene K43.9 [facility] [id number] [place] [address] Jan, Other chronic pain G89.29 [facility] [id number] [place] [id number] Dec, Other chronic pain G89.29 [facility] [id number] [place] [address] Nov, Other chronic pain G89.29 Via [employer] [address] [place] [id number] Nov, Lymphadenitis I88.9 [facility] [id number] [place] [address] Nov, Other chronic pain G89.29 [facility] [id number] [place] [address] Nov, [facility] [id number] [place] [id number] Nov, Other chronic pain G89.29 Via [facility] [employer] [facility] [address] [place] [id number] Oct, Low back pain M54.5 ; Hypertension I10 and Type 2 diabetes mellitus without complication, without long-term current use of insulin E11.9 [facility] [id number] [place] [address] Oct, [facility] [id number] [place] [address] Oct, [facility] [address] [facility] [id number], [place] [address] Oct, [facility] [address] [facility] [id number], [place] [address] Oct, [facility] [address] [facility] [id number], [place] [address] Sep, [facility] [address] [facility] [id number], [place] [address] Sep, [facility] [address] [facility] [id number], [place] [address] Aug, Other chronic pain G89.29 [facility] [address] [facility] [id number], [place] [address] Jul, [facility] [address] [facility] [id number], [place] [address] Jul, [facility] [address] [facility] [id number], [place] [address] Jul, [facility] [address] [facility] [id number], [place] [address] Jun, [facility] [address] [id number], [place] [address] Jun, Via [facility] [address] [place] [id number] Jun, Low back pain M54.5 ; Other chronic pain G89.29 and Coronary artery disease I25.10 [facility] [address] [facility] [id number], [place] [address] Jun, [facility] [address] [facility] [id number], [place] [address] May, [facility] [address] [facility] [id number], [place] [address] May, [facility] [address] [facility] [id number], [place] [address] May, Other chronic pain G89.29 [facility] [address]65100[place], [place] [address] 13 May, 2016 [facility] [address]65100[place], [place] [address] 28 Apr, 2016 [facility] [address]00565100[place], [place] [address] 17 Apr, 2016 Acute cystitis without hematuria N30.00 [facility] [id number] [place] [address] 16 Apr, 2016 Acute cystitis without hematuria N30.00 ; Coronary artery disease I25.10 ; Low back pain M54.5 and Other chronic pain G89.29 [facility] [address] [id number], [place] [address] 13 Apr, 2016 Other chronic pain G89.29 [facility] [id number] [place] [address] March, Other chronic pain G89.29 [facility] [address]00565100[place], [place] [address] 18 Feb, 2016 [facility] [id number] [place] [address] 15 Feb, 2016 Arthritis M19.90 [facility] [address]65100[place], [place] [address] Feb, [facility] [address]00565100[place], [place] [address] 30 Jan, 2016 [facility] [address]65100[place], [place] [address] Jan, [facility] [address] [id number], [place] [address] Jan, Other chronic pain G89.29 [facility] [address]65100[place], [place] [address] 17 Jan, 2016 Hypertension I10 ; Coronary artery disease I25.10 and Insomnia G47.00 [facility] [address]65100[place], [place] [address] Jan, [facility] [id number] [place] [address] Dec, Right hip pain M25.551 [facility] [address] [id number], [place] [address] Dec, [facility] [address] [id number], [place] [address] Dec, [facility] [id number] [place] [address], [place] [address] Dec, [facility] [id number] [place] [address] Dec, Other chronic pain G89.29 [facility] [id number] [place] [address] Dec, [facility] [address]65100[place], [place] [address] Nov, [facility] [id number] [place] [address] Nov, Other chronic pain G89.29 [facility] [address]65100[place], [place] [address] Nov, Right hip pain M25.551 and Coronary artery disease I25.10 [facility] [address]65100[place], [place] [address] Nov, Other chronic pain G89.29 [facility] [address]100[place], [place] [address] Oct, [facility] [address]100[place], [place] [address] Oct, [facility] [address]100[place], [place] [address] Sep, [facility] [address]100[place], [place] [address] Sep, [facility] [id number] [place] [address] Aug, [facility] [id number] [place] [address] Aug, Hypertension I10 ; Coronary artery disease I25.10 and Arthritis M19.90 [facility] [id number] [place] [address] Jun, [facility] [id number] [place] [address] Jun, Essential hypertension, benign 401.1 ; Other chronic pain 338.29 and Chronic airway obstruction, not elsewhere classified 496 [facility] [id number] [place] [address] Jun, [facility] [address] [id number], [place] [address] Jun, [facility] [id number] [place] [address] Jun, [facility] [id number] [place] [address] May, [facility] [address]65100[place], [place] [address] May, [facility] [address]100[place], [place] [address] Apr, [facility] [id number] [place] [address], [place] [address] Apr, [facility] [id number] [place] [address] Apr, [facility] [id number] [place] [address] March, [facility] [address] [id number] [place] [address] March, [facility] [address] [id number] [place] [address] March, [facility] [address] [id number] [place] [address] March, [facility] [address] [id number] [place] [address] March, Sialadenitis 527.2 [facility] [address] [id number] [place] [address] Feb, [facility] [address] [id number] [place] [address] Feb, [facility] [address] [id number] [place] [address] Feb, [facility] [address] [id number] [place] [address] Feb, [facility] [address] [id number] [place] [address] Feb, [facility] [address] [id number] [place] [address] Jan, [facility] [address] [id number] [place] [address] Jan, [facility] [address] [id number] [address] Jan, [facility] [address] [id number] [place] [address] Jan, [facility] [address] [id number] [place] [address] Jan, [facility] [address] [id number] [place] [address] Jan, [facility] [address] [id number] [place] [address] Dec, [facility] [place] [facility] [address] [id number] [place] [address] Dec, [facility] [place] [facility] [address] [id number] [place] [address] Dec, 2014 [facility] [place] [facility] [address] [id number] [place] [address] Dec, 2014 [facility] [place] [facility] [address] [id number] [place] [address] Dec, [facility] [place] [facility] [address] [id number] [place] [address] Dec, [facility] [place] [facility] [address] [id number] [place] [address] Nov, [facility] [place] [facility] [address] [id number] [place] [address] Nov, [facility] [place] [facility] [address] [id number] [place] [address] Nov, [facility] [place] [facility] [address] [id number] [place] [address] Nov, [facility] [place] [facility] [address] [id number] [place] [address] Nov, [facility] [place] [facility] [address] [id number] [place] [address] Nov, [facility] [place] [facility] [address] [id number] [place] [address] Nov, [facility] [place] [facility] [address] [id number] [place] [address] Nov, [facility] [place] [facility] [address] [id number] [place] [address] Nov, [facility] [place] [facility] [address] [id number], [place] [address] Nov, [facility] [place] [facility] [address] [id number] [place] [address] Nov, [facility] [place] [facility] [address] [id number] [place] [address] Nov, [facility] [place] [facility] [address] [id number] [place] [address] Nov, [facility] [place] [facility] [address] [id number] [place] [address] Nov, [facility] [place] [facility] [address] [id number] [place] [address] Oct, [facility] [place] [facility] [address] [id number] [place] [address] Oct, [facility] [place] [facility] [address] [id number] [place] [address] Oct, [facility] [place] [facility] [address] [id number] [place] [address] Oct, [facility] [place] [facility] [address] [id number] [place] [address] Oct, [facility] [place] [facility] [address] [id number] [place] [address] Oct, [facility] [place] [facility] [address] [id number] [place] [address] 17 Oct, 2014 [facility] [place] [facility] [address] [id number] [place] [address] Oct, [facility] [place] [facility] [address] [id number] [place] [address] Oct, [facility] [place] [facility] [address] [id number] [place] [address] Sep, [facility] [place] [facility] [address] [id number] [place] [address] Sep, [facility] [place] [facility] [address] [id number], [place] [address] Sep, [facility] [place] [facility] [address] [id number] [place] [address] Sep, [facility] [place] [facility] [address] [id number] [place] [address] Sep, [facility] [place] [facility] [address] [id number] [place] [address] Sep, [facility] [place] [facility] [address] [id number] [place] [address] Sep, [facility] [place] [facility] [address] [id number] [place] [address] Sep, [facility] [place] [facility] [address] [id number] [place] [address] Sep, [facility] [place] [facility] [address] [id number] [place] [address] Sep, [facility] [place] [facility] [address] [id number], [place] [address] Sep, [facility] [place] [facility] [address] [id number], [place] [address] Sep, [facility] [place] [facility] [address] [id number], [place] [address] Aug, [facility] [place] [facility] [address] [id number], [place] [address] Aug, [facility] [place] [facility] [address] [id number], [place] [address] Aug, [facility] [place] [facility] [address] [id number], [place] [address] Aug, [facility] [place] [facility] [address] [id number], [place] [address] Aug, [facility] [place] [facility] [address] [id number], [place] [address] Aug, [facility] [place] [facility] [address] [id number] [place] [address] 17 Aug, 2014 [facility] [place] [facility] [address] [id number] [place] [address] 17 Aug, 2014 [facility] [place] [facility] [address] [id number] [place] [address] 30 Jul, 2013 [facility] [place] [facility] [address] [id number] [place] [address] 30 Jul, 2013 [facility] [place] [facility] [address] [id number] [place] [address] 30 Jul, 2013 [facility] [place] [facility] [address] [id number] [place] [address] 30 Jul, 2013 [facility] [place] [facility] [address] [id number] [place] [address] 25 Jul, 2013 [facility] [place] [facility] [address] [id number] [place] [address] 25 Jul, 2013 [facility] [place] [facility] [address] [id number] [place] [address] 15 Jul, 2014 [facility] [place] [facility] [address] [id number] [place] [address] 15 Jul, 2014 [facility] [place] [facility] [address] [id number] [place] [address] 11 Jul, 2014 [facility] [place] [facility] [address] [id number] [place] [address] Jul, [facility] [place] [facility] [address] [id number] [place] [address] Jun, [facility] [place] [facility] [address] [id number] [place] [address] Jun, [facility] [place] [facility] [address] [id number] [place] [address] Jun, [facility] [place] [facility] [address] [id number] [place] [address] Jun, [facility] [place] [facility] [address] [id number] [place] [address] Jun, [facility] [place] [facility] [address] [id number] [place] [address] Jun, [facility] [place] [facility] [address] [id number] [place] [address] Jun, [facility] [place] [facility] [address] [id number] [place] [address] Jun, [facility] [place] [facility] [address] [id number] [place] [address] Jun, [facility] [place] [facility] [address] [id number] [place] [address] Jun, [facility] [place] [facility] [address] [id number] [place] [address] Jun, [facility] [place] [facility] [address] [id number] [place] [address] Jun, [facility] [place] [facility] [address] [id number] [place] [address] Jun, [facility] [place] [facility] [address] [id number] [place] [address] Jun, [facility] [place] [facility] [address] [id number] [place] [address] Jun, [facility] [place] [facility] [address] [id number] [place] [address] Jun, [facility] [place] [facility] [address] [id number] [place] [address] Jun, [facility] [place] [facility] [address] [id number] [place] [address] Jun, [facility] [place] [facility] [address] [id number] [place] [address] Jun, [facility] [place] [facility] [address] [id number] [place] [address] Jun, [facility] [place] [facility] [address] [id number] [place] [address] Jun, [facility] [place] [facility] [address] [id number] [place] [address] Jun, [facility] [place] [facility] [address] [id number] [place] [address] May, [facility] [place] [facility] [address] [id number] [place] [address] May, [facility] [place] [facility] [address] [id number] [place] [address] May, [facility] [place] [facility] [address] [id number] [place] [address] May, [facility] [place] [facility] [address] [id number] [place] [address] May, [facility] [place] [facility] [address] [id number] [place] [address] May, [facility] [place] [facility] [address] [id number] [place] [address] May, [facility] [place] [facility] [address] [id number] [place] [address] May, [facility] [place] [facility] [address] [id number] [place] [address] May, [facility] [place] [facility] [address] [id number] [place] [address] May, [facility] [place] [facility] [address] [id number] [place] [address] May, [facility] [place] [facility] [address] [id number] [place] [address] May, [facility] [place] [facility] [address] [id number] [place] [address] May, [facility] [place] [facility] [address] [id number] [place] [address] Apr, [facility] [place] [facility] [address] [id number] [place] [address] Apr, [facility] [place] [facility] [address] [id number] [place] [address] Apr, [facility] [place] [facility] [address] [id number] [place] [address] Apr, [facility] [place] [facility] [address] [id number] [place] [address] Apr, [facility] [place] [facility] [address] [id number] [place] [address] Apr, [facility] [place] [facility] [address] [id number] [place] [address] Apr, [facility] [place] [facility] [address] [id number] [place] [address] Apr, [facility] [place] [facility] [address] [id number] [place] [address] Apr, [facility] [place] [facility] [address] [id number] [place] [address] March, [facility] [place] [facility] [address] [id number] [place] [address] March, [facility] [place] [facility] [address] [id number] [place] [address] March, [facility] [place] [facility] [address] [id number] [place] [address] March, [facility] [place] [facility] [address] [id number] [place] [address] March, [facility] [place] [facility] [address] [id number] [place] [address] March, [facility] [place] [facility] [address] [id number] [place] [address] March, [facility] [place] [facility] [address] [id number] [place] [address] March, [facility] [place] [facility] [address] [id number] [place] [address] March, [facility] [place] [facility] [address] [id number] [place] [address] March, [facility] [place] [facility] [address] [id number] [place] [address] March, [facility] [place] [facility] [address] [id number] [place] [address] March, [facility] [place] [facility] [address] [id number] [place] [address] March, [facility] [place] [facility] [address] [id number] [place] [address] March, [facility] [place] [facility] [address] [id number] [place] [address] March, [facility] [place] [facility] [address] [id number] [place] [address] March, [facility] [place] [facility] [address] [id number] [place] [address] March, [facility] [place] [facility] [address] [id number] [place] [address] March, [facility] [place] [facility] [address] [id number] [place] [address] March, [facility] [place] [facility] [address] [id number] [place] [address] March, [facility] [place] [facility] [address] [id number] [place] [address] Feb, [facility] [place] [facility] [address] [id number] [place] [address] Feb, [facility] [place] [facility] [address] [id number] [place] [address] 24 Feb, 2014 [facility] [place] [facility] [address] [id number] [place] [address] Feb, [facility] [place] [facility] [address] [id number] [place] [address] Feb, [facility] [place] [facility] [address] [id number] [place] [address] Feb, [facility] [place] [facility] [address] [id number] [place] [address] Feb, [facility] [place] [facility] [address] [id number] [place] [address] Feb, [facility] [place] [facility] [address] [id number] [place] [address] Jan, [facility] [place] [facility] [address] [id number] [place] [address] Jan, [facility] [place] [facility] [address] [id number] [place] [address] Jan, [facility] [place] [facility] [address] [id number] [place] [address] Jan, [facility] [place] [facility] [address] [id number] [place] [address] Jan, [facility] [place] [facility] [address] [id number] [place] [address] Jan, [facility] [place] [facility] [address] [id number] [place] [address] Jan, [facility] [place] [facility] [address] [id number] [place] [address] Jan, [facility] [place] [facility] [address] [id number] [place] [address] Jan, [facility] [place] [facility] [address] [id number] [place] [address] Jan, [facility] [place] [facility] [address] [id number] [place] [address] Dec, [facility] [place] [facility] [address] [id number] [place] [address] Dec, [facility] [place] [facility] [address] [id number] [place] [address] Dec, [facility] [place] [facility] [address] [id number] [place] [address] Dec, [facility] [place] [facility] [address] [id number] [place] [address] Dec, [facility] [place] [facility] [address] [id number] [place] [address] Dec, [facility] [place] [facility] [address] [id number] [place] [address] Dec, [facility] [place] [facility] [address] [id number] [place] [address] Dec, [facility] [place] [facility] [address] [id number] [place] [address] Nov, [facility] [place] [facility] [address] [id number] [place] [address] Nov, [facility] [place] [facility] [address] [id number] [place] [address] Nov, [facility] [place] [facility] [address] [id number] [place] [address] Nov, [facility] [place] [facility] [address] [id number] [place] [address] Nov, [facility] [place] [facility] [address] [id number] [place] [address] Nov, [facility] [place] [facility] [address] [id number] [place] [address] Nov, [facility] [place] [facility] [address] [id number] [place] [address] Nov, [facility] [address] [id number] [place] [address] Nov, [facility] [facility] [address] [id number] [place] [address] Nov, [facility] [place] [facility] [address] [id number] [place] [address] Nov, [facility] [facility] [address] [id number] [place] [address] Nov, [facility] [facility] [address] [id number] [place] [address] Nov, [facility] [place] [facility] [address] [id number] [place] [address] Oct, [facility] [address] [id number] [place] [address] 30 Oct, 2013 [facility] [place] [facility] [address] [id number] [place] [address] Oct, [facility] [place] [facility] [address] [id number] [place] [address] Oct, [facility] [place] [facility] [address] [id number] [place] [address] Oct, [facility] [facility] [address] [id number] [place] [address] Oct, [facility] [place] [facility] [address] [id number] [place] [address] 18 Oct, 2013 [facility] [place] [facility] [address] [id number] [place] [address] 18 Oct, 2013 [facility] [place] [facility] [address] [id number] [place] [address] 17 Oct, 2013 [facility] [place] [facility] [address] [id number] [place] [address] 17 Oct, 2013 [facility] [place] [facility] [address] [id number] [place] [address] Oct, [facility] [place] [facility] [address] [id number] [place] [address] Oct, [facility] [place] [facility] [address] [id number] [place] [address] Oct, [facility] [place] [facility] [address] [id number] [place] [address] Oct, [facility] [place] [facility] [address] [id number] [place] [address] Sep, [facility] [place] [facility] [address] [id number] [place] [address] Sep, [facility] [place] [facility] [address] [id number] [place] [address] Sep, [facility] [place] [facility] [address] [id number] [place] [address] Sep, [facility] [place] [facility] [address] [id number] [place] [address] Sep, [facility] [place] [facility] [address] [id number] [place] [address] Sep, [facility] [place] [facility] [address] [id number] [place] [address] Sep, [facility] [place] [facility] [address] [id number] [place] [address] Sep, [facility] [place] [facility] [address] [id number] [place] [address] Sep, [facility] [place] [facility] [address] [id number] [place] [address] Sep, [facility] [place] [facility] [address] [id number] [place] [address] Aug, [facility] [place] [facility] [address] [id number], [place] [address] 24 Aug, 2013 [facility] [place] [facility] [address] [id number] [place] [address] 24 Aug, 2013 [facility] [place] [facility] [address] [id number], [place] [address] 24 Aug, 2013 [facility] [place] [facility] [address] [id number] [place] [address] Aug, [facility] [place] [facility] [address] [id number], [place] [address] Aug, 2012 [facility] [place] [facility] [address] [id number] [place] [address] Aug, [facility] [place] [facility] [address] [id number], [place] [address] Aug, [facility] [place] [facility] [address] [id number], [place] [address] Aug, [facility] [place] [facility] [address] [id number], [place] [address] 22 Aug, 2013 [facility] [place] [facility] [address] [id number], [place] [address] 18 Aug, 2013 [facility] [place] [facility] [address] [id number], [place] [address] 18 Aug, 2013 [facility] [place] [facility] [address] [id number], [place] [address] 18 Aug, 2013 [facility] [place] [facility] [address] [id number], [place] [address] 18 Aug, 2012 [facility] [place] [facility] [address] [id number], [place] [address] 17 Aug, 2012 [facility] [place] [facility] [address] [id number], [place] [address] 14 Aug, 2012 [facility] [place] [facility] [address] [id number], [place] [address] 14 Aug, 2012 [facility] [place] [facility] [address] [id number] [place] [address] Aug, [facility] [address] [id number] [place] [address] 20 Jul, 2013 [facility] [place] [facility] [address] [id number] [place] [address] 19 Jul, 2013 [facility] [address] [id number] [place] [address] 18 Jul, 2013 [facility] [place] [facility] [address] [id number] [place] [address] Jul, [facility] [address] [id number] [place] [address] Jul, [facility] [address] [id number] [place] [address] Jun, [facility] [place] [facility] [address] [id number] [place] [address] Jun, [facility] [address] [id number] [place] [address] Jun, [facility] [place] [facility] [address] [id number] [place] [address] Jun, [facility] [address] [id number] [place] [address] Jun, [facility] [place] [facility] [address] [id number] [place] [address] Jun, [facility] [place] [facility] [address] [id number] [place] [address] Jun, [facility] [place] [facility] [address] [id number] [place] [address] Jun, [facility] [place] [facility] [address] [id number] [place] [address] Jun, [facility] [place] [facility] [address] [id number] [place] [address] Jun, [facility] [place] [facility] [address] [id number] [place] [address] May, [facility] [place] [facility] [address] [id number] [place] [address] May, [facility] [place] [facility] [address] [id number] [place] [address] May, [facility] [place] [facility] [address] [id number] [place] [address] May, [facility] [place] [facility] [address] [id number] [place] [address] May, [facility] [place] [facility] [address] [id number] [place] [address] May, [facility] [place] [facility] [address] [id number] [place] [address] May, [facility] [place] [facility] [address] [id number] [place] [address] May, [facility] [place] [facility] [address] [id number] [place] [address] May, [facility] [place] [facility] [address] [id number] [place] [address] Apr, [facility] [place] [facility] [address] [id number] [place] [address] Apr, [facility] [place] [facility] [address] [id number] [place] [address] Apr, [facility] [place] [facility] [address] [id number] [place] [address] Apr, [facility] [place] [facility] [address] [id number] [place] [address] Apr, [facility] [place] [facility] [address] [id number] [place] [address] Apr, [facility] [place] [facility] [address] [id number], [place] [address] Apr, [facility] [address] [id number] [place] [address] March, [facility] [address] [id number] [place] [address] Feb, [facility] [address] [id number] [place] [address] Feb, [facility] [address] [id number] [place] [address] Feb, [facility] [address] [id number] [place] [address] Jan, [facility] [address] [id number] [place] [address] Jan, [facility] [address] [id number] [place] [address] Jan, [facility] [address] [id number] [place] [address] 14 Jan, 2013 [facility] [address] [id number] [place] [address] Jan, [facility] [address] [facility] [id number] [place] [address] Jan, [facility] [address] [id number] [place] [address] Jan, [facility] [address] [id number] [place] [address] Jan, [facility] [address] [id number] [place] [address] Dec, [facility] [place] [facility] [address] [id number] [place] [address] Dec, [facility] [address] [facility] [id number], [place] [address] Dec, [facility] [address] [id number] [place] [address] 11 Dec, 2012 [facility] [address] [id number] [place] [address] 07 Dec, 2012 [facility] [place] [facility] [address] [id number] [place] [address] 06 Dec, 2012 [facility] [place] [facility] [address] [id number] [place] [address] 05 Dec, 2012 [facility] [address] [id number] [place] [address] Nov, [facility] [place] [facility] [address] [id number] [place] [address] 24 Nov, 2012 [facility] [address] [id number] [place] [address] Nov, [facility] [address] [id number] [place] [address] 15 Nov, 2012 [facility] [place] [facility] [address] [id number] [place] [address] Nov, [facility] [address] [id number] [place] [address] Nov, [facility] [place] [facility] [address] [id number] [place] [address] Nov, [facility] [place] [facility] [address] [id number] [place] [address] Oct, [facility] [place] [facility] [address] [id number] [place] [address] Oct, [facility] [place] [facility] [address] [id number] [place] [address] Oct, [facility] [place] [facility] [address] [id number] [place] [address] Oct, [facility] [place] [facility] [address] [id number], [place] [address] Oct, [facility] [place] [facility] [address] [id number] [place] [address] Oct, [facility] [place] [facility] [address] [id number] [place] [address] Oct, [facility] [place] [facility] [address] [id number] [place] [address] Oct, [facility] [place] [facility] [address] [id number] [place] [address] Oct, [facility] [place] [facility] [address] [address] [id number] [place] [address] Oct, [facility] [place] [facility] [address] [id number] [place] [address] Oct, [facility] [place] [facility] [address] [facility] [id number] [place] [address] Oct, [facility] [place] [facility] [address] [id number] [place] [address] Sep, [facility] [place] [facility] [address] [id number] [place] [address] Sep, [facility] [place] [facility] [address] [facility] [id number], [place] [address] Sep, [facility] [place] [facility] [address] [id number], [place] [address] Sep, [facility] [place] [facility] [address] [id number], [place] [address] Sep, [facility] [place] [facility] [address] [id number], [place] [address] Sep, [facility] [place] [facility] [address] [id number], [place] [address] Sep, [facility] [place] [facility] [address] [facility] [id number] [place] [address] Sep, [facility] [place] [facility] [address] [id number] [place] [address] Sep, [facility] [place] [facility] [address] [id number] [place] [address] Sep, [facility] [place] [facility] [address] [id number] [place] [address] Sep, [facility] [place] [facility] [address] [id number] [place] [address] Aug, [facility] [place] [facility] [address] [id number] [place] [address] Aug, [facility] [place] [facility] [address] [id number] [place] [address] Aug, [facility] [place] [facility] [address] [id number] [place] [address] Aug, [facility] [place] [facility] [address] [id number] [place] [address] Aug, [facility] [place] [facility] [address] [id number] [place] [address] Aug, [facility] [place] [facility] [address] [id number] [place] [address] Aug, [facility] [place] [facility] [address] [id number] [place] [address] Aug, [facility] [place] [facility] [address] [id number] [place] [address] Aug, [facility] [place] [facility] [address] [id number] [place] [address] Aug, [facility] [place] [facility] [address] [id number] [place] [address] 22 Jul, 2012 [facility] [place] [facility] [address] [id number] [place] [address] 20 Jul, 2012 [facility] [place] [facility] [address] [id number] [place] [address] Jul, [facility] [place] [facility] [address] [id number] [place] [address] Jul, [facility] [place] [facility] [address] [id number] [place] [address] Jun, [facility] [place] [facility] [address] [id number] [place] [address] Jun, [facility] [place] [facility] [address] [id number] [place] [address] Jun, [facility] [place] [facility] [address] [id number] [place] [address] Jun, [facility] [place] [facility] [address] [id number] [place] [address] Jun, [facility] [place] [facility] [address] [id number] [place] [address] Jun, [facility] [place] [facility] [address] [id number] [place] [address] Jun, [facility] [place] [facility] [address] [id number] [place] [address] May, [facility] [place] [facility] [address] [id number] [place] [address] May, [facility] [place] [facility] [address] [id number] [place] [address] May, [facility] [place] [facility] [address] [id number] [place] [address] May, [facility] [place] [facility] [address] [id number] [place] [address] May, [facility] [place] [facility] [address] [id number] [place] [address] Apr, [facility] [place] [facility] [address] [id number] [place] [address] Apr, [facility] [place] [facility] [address] [id number] [place] [address] 13 Apr, 2012 [facility] [address] [id number] [place] [address] Apr, [facility] [place] [facility] [address] [id number] [place] [address] Apr, [facility] [place] [facility] [address] [id number] [place] [address] March, [facility] [place] [facility] [address] [id number] [place] [address] March, [facility] [address] [id number] [place] [address] March, [facility] [place] [facility] [address] [id number] [place] [address] March, [facility] [address] [id number] [place] [address] March, [facility] [address] [id number] [place] [address] March, [facility] [place] [facility] [address] [id number] [place] [address] March, [facility] [place] [facility] [address] [id number] [place] [address] March, [facility] [place] [facility] [address] [id number] [place] [address] March, [facility] [place] [facility] [address] [id number] [place] [address] March, [facility] [place] [facility] [address] [id number] [place] [address] Feb, [facility] [place] [facility] [address] [id number] [place] [address] Feb, [facility] [place] [facility] [address] [id number] [place] [address] Feb, [facility] [place] [facility] [address] [id number] [place] [address] Feb, [facility] [place] [facility] [address] [id number] [place] [address] Feb, [facility] [place] [facility] [address] [id number] [place] [address] Feb, [facility] [place] [facility] [address] [id number] [place] [address] Feb, [facility] [place] [facility] [address] [id number] [place] [address] Feb, [facility] [place] [facility] [address] [id number] [place] [address] Feb, [facility] [place] [facility] [address] [id number] [place] [address] Jan, [facility] [place] [facility] [address] [id number] [place] [address] Jan, [facility] [place] [facility] [address] [id number] [place] [address] Jan, [facility] [place] [facility] [address] [id number] [place] [address] Jan, [facility] [place] [facility] [address] [id number] [place] [address] Dec, [facility] [place] [facility] [address] [id number] [place] [address] Dec, [facility] [place] [facility] [address] [id number] [place] [address] Nov, [facility] [place] [facility] [address] [id number] [place] [address] Nov, [facility] [place] [facility] [address] [id number] [place] [address] Nov, [facility] [place] [facility] [address] [id number], [place] [address] Nov, [facility] [address] [facility] [id number], [place] [address] Nov, [facility] [address] [facility] [id number], [place] [address] Oct, [facility] [address] [facility] [id number], [place] [address] Oct, [facility] [address] [facility] [id number], [place] [address] Oct, [facility] [address] [facility] [id number], [place] [address] Oct, [facility] [address] [facility] [id number], [place] [address] Oct, [facility] [id number], [place] [address] Oct, [facility] [id number], [place] [address] Oct, [facility] [address] [id number], [place] [address] Oct, [facility] [address] [id number], [place] [address] Sep, IMMUNIZATIONS No Known Immunizations SOCIAL HISTORY Never Assessed REASON FOR VISIT EMR-[facility] [place]AN OF CARE VITAL SIGNS MEDICATIONS Unknown Medications RESULTS No Results PROCEDURES No Known procedures INSTRUCTIONS MEDICATIONS ADMINISTERED No Known Medications MEDICAL (GENERAL) HISTORY Type Description Date 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
--- OUTSIDE RECORDS SUMMARY | 2019-04-16 15:32 | XMS REPORT ---
Author Author Migration, Doctor Organization [facility] Address Unknown Phone Unavailable Care Team Providers Care Funding Analyst Name Role Phone Migration, Doctor Unavailable Unavailable PROBLEMS Type Condition ICD9-CM Code OIK63-UG Code Onset Dates Condition Status SNOMED Code Problem Coronary artery disease I25.10 Active 82804947 Problem Hypertension I10 Active 48173026 Problem Other chronic pain G89.29 Active 30566237 Problem Hyperlipidemia E78.5 Active 51093475 Problem Type 2 diabetes mellitus without complication, without long-term current use of insulin E11.9 Active 866524924 Problem Low back pain M54.5 Active 379062915 Problem Pharyngeal dysphagia R13.13 Active [id number] Problem Anxiety F41.9 Active 82385098 Problem Peripheral vascular disease I73.9 Active 623040223 Problem Suprapubic catheter Z93.59 Active 772907173 Problem Reactive depression F32.9 Active 76836432 Problem Neurogenic bladder N31.9 Active 527620274 Problem Ventral hernia without obstruction or gangrene K43.9 Active 435024192 Problem Insomnia G47.00 Active 972290788 Problem Paroxysmal atrial fibrillation I48.0 Active 551202610 Problem 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 Active 39489673 Problem Encounter for suprapubic catheter care Z43.5 Active 371463684 ALLERGIES No Information ENCOUNTERS Encounter Location Date Diagnosis [facility] [address] [place] [id number] Jun, [facility] [address] [place] [id number] March, [facility] [address] [facility] [id number], [place] [address] Feb, Anxiety F41.9 [facility] [address] [facility] [id number], [place] [address] Feb, Other chronic pain G89.29 [facility] [address] [place] [id number] Feb, Neurogenic bladder N31.9 and Suprapubic catheter Z93.59 [facility] [address] [facility] [id number], [place] [address] Jan, Anxiety F41.9 [facility] [address] [facility] [id number] [place] [address] Dec, Anxiety F41.9 [facility] [address] [facility] [id number] [place] [address] Dec, Other chronic pain G89.29 and Anxiety F41.9 [facility] [address] [facility] [id number] [place] [address] Dec, [facility] [employer] [address] [place] [id number] Dec, Neurogenic bladder N31.9 and Suprapubic catheter Z93.59 [facility] [address] [facility] [id number] [place] [address] Nov, Other chronic pain G89.29 and Anxiety F41.9 [facility] [address] [facility] [id number], [place] [address] Nov, [facility] [employer] [address] [place] [id number] Nov, Suprapubic catheter Z93.59 [facility] [address] [facility] [id number], [place] [address] Oct, Other chronic pain G89.29 and Anxiety F41.9 [facility] [address] [facility] [id number], [place] [address] Oct, [facility] [address] [facility] [id number] [place] [address] Oct, Suprapubic catheter Z93.59 [facility] [address] [facility] [id number], [place] [address] Oct, [facility] [address] [place] [id number] Oct, [facility] [address] [id number], [place] [address] Oct, Anxiety F41.9 [facility] [address] [id number] [place] [address] Oct, Anxiety F41.9 [facility] [employer] [address] [place] [id number] Oct, Other chronic pain G89.29 [facility] [address] [id number] [place] [address] Sep, Other chronic pain G89.29 [facility] [employer] [address] [place] [id number] Sep, Suprapubic catheter Z93.59 and Cervicalgia M54.2 [facility] [address] [id number], [place] [address] Sep, [facility] [address] [facility] [id number] [place] [address] Sep, [facility] [address] [facility] [id number], [place] [address] Sep, [facility] [employer] [address] [place] [id number] Aug, Cystitis N30.90 [facility] [address] [facility] [id number], [place] [address] Aug, [facility] [address] [facility] [id number] [place] [address] Aug, Other chronic pain G89.29 [facility] [address] [id number], [place] [address] Aug, [facility] [employer] [address] [place] [id number] Aug, Encounter for suprapubic catheter care Z43.5 [facility] [address] [id number], [place] [address] Jul, [facility] [employer] [address] [place] [id number] Jul, [facility] [address] [facility] [id number], [place] [address] 11 Jul, 2018 Other chronic pain G89.29 [facility] [address] [facility] [id number], [place] [address] Jul, [facility] [address] [facility] [id number], [place] [address] Jul, [facility] [address] [place] [id number] Jun, 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 [facility] [address] [facility] [id number], [place] [address] Jun, Other chronic pain G89.29 [facility] [address]00565100[place], [place] [address] Jun, [facility] [address] [place] [id number] May, Anxiety F41.9 ; Type 2 diabetes mellitus without complication, without long-term current use of insulin E11.9 ; Hypertension I10 ; Low back pain M54.5 ; Paroxysmal atrial fibrillation I48.0 and 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 [facility] [address] [id number] [address] May, Other chronic pain G89.29 [facility] [employer] [facility] [address] [place] [id number] May, Low back pain M54.5 [facility] [address] [facility] [id number], [place] [address] May, [facility] [address]00565100[place], [place] [address] Apr, Other chronic pain G89.29 [facility] [address] [facility] [id number], [place] [address] Apr, [facility] [address]00565100[place], [place] [address] Apr, Via [employer] [address] [place] [id number] 19 Apr, 2018 Closed compression fracture of L3 lumbar vertebra with routine healing, subsequent encounter S32.030D [facility] [employer] [address] [place] [id number] 14 Apr, 2018 Low back pain M54.5 [facility] [employer] [address] [place] [id number] 12 Apr, 2018 Coccydynia M53.3 [facility] [address] [id number] [place] [address] March, [facility] [address] [id number] [place] [address] March, Other chronic pain G89.29 [facility] [address] [id number] [place] [address] March, [facility] [address] [id number] [place] [address] March, [facility] [address] [id number] [place] [address] Feb, [facility] [address] [id number] [place] [address] Feb, Other chronic pain G89.29 [facility] [employer] [address] [place] [id number] Feb, Other chronic pain G89.29 and Anxiety F41.9 [facility] [address] [id number] [place] [address] Feb, [facility] [address] [id number] [place] [address] Jan, [facility] [address] [id number] [place] [address] Jan, [facility] [address] [facility] [id number], [place] [address] Jan, [facility] [address] [id number] [place] [address] Jan, [facility] [address] [facility] [id number], [place] [address] Dec, Via [employer] [address] [place] [id number] Dec, Peripheral vascular disease I73.9 ; 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 ; Other chronic pain G89.29 ; Anxiety F41.9 ; Reactive depression F32.9 ; Insomnia G47.00 and Type 2 diabetes mellitus without complication, without long-term current use of insulin E11.[address] [id number] [place] [address] Nov, [facility] [address] [id number], [place] [address] Nov, Anxiety F41.9 [facility] [address] [facility] [id number], [place] [address] Nov, [facility] [address] [id number][place] [id number] Nov, Anxiety F41.9 [facility] [employer] [address] [place] [id number] Nov, Status post surgery Z98.890 ; Confused R41.0 ; Anxiety F41.9 and Other chronic pain G89.29 [facility] [address] [id number] [address] Nov, Other chronic pain G89.29 [facility] [address] [facility] [id number], [place] [address] Oct, [facility] [address] [id number][place] [address] Oct, Other chronic pain G89.29 [facility] [address] [facility] [id number], [place] [address] Oct, Anxiety F41.9 [facility] [address] [id number][place] [address] Sep, Other chronic pain G89.29 [facility] [address] [id number], [place] [id number] Sep, [facility] [address] [place] [id number] Aug, Dysuria R30.0 and Anxiety F41.9 [facility] [address] [facility] [id number], [place] [address] Aug, [facility] [address] [id number][place] [id number] Aug, Other chronic pain G89.29 [facility] [address] [facility] [id number], [place] [address] Jul, Other chronic pain G89.29 [facility] [address] [id number] [address] Jun, [facility] [id number] [place] [id number] Jun, Other chronic pain G89.29 [facility] [address]00565100[place], [place] [address] Jun, [facility] [address] [place] [address] May, Other chronic pain G89.29 [facility] [address]00565100[place], [place] [address] Apr, Other chronic pain G89.29 [facility] [employer] [address] [place] [id number] Apr, Reactive depression F32.9 and Pharyngeal dysphagia R13.13 [facility] [address] [facility] [id number], [place] [address] Apr, Urinary tract infection without hematuria, site unspecified N39.0 [facility] [address] [facility] [id number], [place] [address] March, Other chronic pain G89.29 [facility] [address]65100[place], [place] [address] Feb, Other chronic pain G89.29 [facility] [address]00565100[place], [place] [address] Feb, [facility] [id number] [place] [id number] Feb, [facility] [employer] [facility] [employer] [address] [place] [id number] Feb, Dysuria R30.0 and Ventral hernia without obstruction or gangrene K43.9 [facility] [address] [place] [address] Jan, Other chronic pain G89.29 [facility] [id number] [place] [id number] Dec, Other chronic pain G89.29 [facility] [id number] [place] [address] Nov, Other chronic pain G89.29 [facility] [employer] [address] [place] [id number] Nov, Lymphadenitis I88.9 [facility] [address] [place] [address] Nov, Other chronic pain G89.29 [facility] [address] [place] [address] Nov, [facility] [id number] [place] [id number] Nov, Other chronic pain G89.29 [facility] [address] [place] [id number] Oct, Low back pain M54.5 ; Hypertension I10 and Type 2 diabetes mellitus without complication, without long-term current use of insulin E11.9 [facility] [address] [place] [address] Oct, [facility] [address] [place] [address] Oct, [facility] [address] [facility] [id number], [place] [address] Oct, [facility] [address] [facility] [id number], [place] [address] Oct, [facility] [address] [facility] [id number], [place] [address] Sep, [facility] [address] [facility] [id number], [place] [address] Sep, [facility] [address] [facility] [id number], [place] [address] Aug, Other chronic pain G89.29 [facility] [address] [facility] [id number], [place] [address] Jul, [facility] [address] [facility] [id number], [place] [address] Jul, [facility] [address] [facility] [id number], [place] [address] Jul, [facility] [address] [facility] [id number], [place] [address] Jun, [facility] [address] [id number], [place] [address] Jun, [facility] [address] [address] [place] [id number] Jun, Low back pain M54.5 ; Other chronic pain G89.29 and Coronary artery disease I25.10 [facility] [address] [facility] [id number], [place] [address] Jun, [facility] [address] [facility] [id number], [place] [address] May, [facility] [address] [facility] [id number], [place] [address] May, [facility] [address] [facility] [id number], [place] [address] May, Other chronic pain G89.29 [facility] [address]00565100[place], [place] [address] 13 May, 2016 [facility] [address]00565100[place], [place] [address] 28 Apr, 2016 [facility] [address]00565100[place], [place] [address] 17 Apr, 2016 Acute cystitis without hematuria N30.00 [facility] [id number] [place] [address] 16 Apr, 2016 Acute cystitis without hematuria N30.00 ; Coronary artery disease I25.10 ; Low back pain M54.5 and Other chronic pain G89.29 [facility] [address] [id number], [place] [address] 13 Apr, 2016 Other chronic pain G89.29 [facility] [id number] [place] [address] March, Other chronic pain G89.29 [facility] [address]65100[place], [place] [address] 18 Feb, 2016 [facility] [id number] [place] [address] 15 Feb, 2016 Arthritis M19.90 [facility] [address]00565100[place], [place] [address] Feb, [facility] [address]00565100[place], [place] [address] 30 Jan, 2016 [facility] [address]00565100[place], [place] [address] Jan, [facility] [address] [id number], [place] [address] Jan, Other chronic pain G89.29 [facility] [address]65100[place], [place] [address] 17 Jan, 2016 Hypertension I10 ; Coronary artery disease I25.10 and Insomnia G47.00 [facility] [address]00565100[place], [place] [address] Jan, [facility] [address] [place] [address] Dec, Right hip pain M25.551 [facility] [address] [id number] [address] Dec, [facility] [address] [id number], [place] [address] Dec, [facility] [id number] [place] [address], [place] [address] Dec, [facility] [address] [place] [address] Dec, Other chronic pain G89.29 [facility] [id number] [place] [address] Dec, [facility] [address]00565100[place], [place] [address] Nov, [facility] [address] [place] [address] Nov, Other chronic pain G89.29 [facility] [address]00565100[place], [place] [address] Nov, Right hip pain M25.551 and Coronary artery disease I25.10 [facility] [address]65100[place], [place] [address] Nov, Other chronic pain G89.29 [facility] [address]00565100[place], [place] [address] Oct, [facility] [address]00565100[place], [place] [address] Oct, [facility] [address]00565100[place], [place] [address] Sep, [facility] [address]00565100[place], [place] [address] Sep, [facility] [id number] [place] [address] Aug, [facility] [id number] [place] [address] Aug, Hypertension I10 ; Coronary artery disease I25.10 and Arthritis M19.90 [facility] [id number] [place] [address] Jun, [facility] [id number] [place] [address] Jun, Essential hypertension, benign 401.1 ; Other chronic pain 338.29 and Chronic airway obstruction, not elsewhere classified 496 [facility] [id number] [place] [address] Jun, [facility] [address] [id number] [address] Jun, [facility] [id number] [place] [address] Jun, [facility] [address] [place] [address] May, [facility] [address]00565100[place], [place] [address] May, [facility] [address]00565100[place], [place] [address] Apr, [facility] [id number] [place] [address], [place] [address] Apr, [facility] [address] [place] [address] Apr, [facility] [address] [place] [address] March, [facility] [address] [id number] [place] [address] March, [facility] [address] [id number] [place] [address] March, [facility] [address] [id number] [place] [address] March, [facility] [address] [id number] [place] [address] March, Sialadenitis 527.2 [facility] [address] [id number] [place] [address] Feb, [facility] [address] [id number] [place] [address] Feb, [facility] [address] [id number] [place] [address] Feb, [facility] [address] [id number] [place] [address] Feb, [facility] [address] [id number] [place] [address] Feb, [facility] [address] [id number] [place] [address] Jan, [facility] [address] [id number] [place] [address] Jan, [facility] [address] [id number], [place] [address] Jan, [facility] [address] [id number] [place] [address] Jan, [facility] [address] [id number] [place] [address] Jan, [facility] [address] [id number] [place] [address] Jan, [facility] [address] [id number] [place] [address] Dec, [facility] [place] [facility] [address] [id number] [place] [address] Dec, [facility] [place] [facility] [address] [id number] [place] [address] Dec, 2014 [facility] [place] [facility] [address] [id number] [place] [address] Dec, 2014 [facility] [place] [facility] [address] [id number] [place] [address] Dec, [facility] [place] [facility] [address] [id number] [place] [address] Dec, [facility] [place] [facility] [address] [id number] [place] [address] Nov, [facility] [place] [facility] [address] [id number] [place] [address] Nov, [facility] [place] [facility] [address] [id number] [place] [address] Nov, [facility] [place] [facility] [address] [id number] [place] [address] Nov, [facility] [place] [facility] [address] [id number] [place] [address] Nov, [facility] [place] [facility] [address] [id number] [place] [address] Nov, [facility] [place] [facility] [address] [id number] [place] [address] Nov, [facility] [place] [facility] [address] [id number] [place] [address] Nov, [facility] [place] [facility] [address] [id number] [place] [address] Nov, [facility] [place] [facility] [address] [id number] [address] Nov, [facility] [place] [facility] [address] [id number] [place] [address] Nov, [facility] [place] [facility] [address] [id number] [place] [address] Nov, [facility] [place] [facility] [address] [id number] [place] [address] Nov, [facility] [place] [facility] [address] [id number] [place] [address] Nov, [facility] [place] [facility] [address] [id number] [place] [address] Oct, [facility] [place] [facility] [address] [id number] [place] [address] Oct, [facility] [place] [facility] [address] [id number] [place] [address] Oct, [facility] [place] [facility] [address] [id number] [place] [address] Oct, [facility] [place] [facility] [address] [id number] [place] [address] Oct, [facility] [place] [facility] [address] [id number] [place] [address] Oct, [facility] [place] [facility] [address] [id number] [place] [address] 17 Oct, 2014 [facility] [place] [facility] [address] [id number] [place] [address] Oct, [facility] [place] [facility] [address] [id number] [place] [address] Oct, [facility] [place] [facility] [address] [id number] [place] [address] Sep, [facility] [place] [facility] [address] [id number] [place] [address] Sep, [facility] [place] [facility] [address] [id number], [place] [address] Sep, [facility] [place] [facility] [address] [id number] [place] [address] Sep, [facility] [place] [facility] [address] [id number] [place] [address] Sep, [facility] [place] [facility] [address] [id number] [place] [address] Sep, [facility] [place] [facility] [address] [id number] [place] [address] Sep, [facility] [place] [facility] [address] [id number] [place] [address] Sep, [facility] [place] [facility] [address] [id number] [place] [address] Sep, [facility] [place] [facility] [address] [id number] [place] [address] Sep, [facility] [place] [facility] [address] [id number], [place] [address] Sep, [facility] [place] [facility] [address] [id number], [place] [address] Sep, [facility] [place] [facility] [address] [id number], [place] [address] Aug, [facility] [place] [facility] [address] [id number], [place] [address] Aug, [facility] [place] [facility] [address] [id number], [place] [address] Aug, [facility] [place] [facility] [address] [id number], [place] [address] Aug, [facility] [place] [facility] [address] [id number], [place] [address] Aug, [facility] [place] [facility] [address] [id number], [place] [address] Aug, [facility] [place] [facility] [address] [id number] [place] [address] 17 Aug, 2014 [facility] [place] [facility] [address] [id number] [place] [address] 17 Aug, 2014 [facility] [place] [facility] [address] [id number] [place] [address] 30 Jul, 2013 [facility] [place] [facility] [address] [id number] [place] [address] 30 Jul, 2013 [facility] [place] [facility] [address] [id number] [place] [address] 30 Jul, 2013 [facility] [place] [facility] [address] [id number] [place] [address] 30 Jul, 2013 [facility] [place] [facility] [address] [id number] [place] [address] 25 Jul, 2013 [facility] [place] [facility] [address] [id number] [place] [address] 25 Jul, 2013 [facility] [place] [facility] [address] [id number] [place] [address] 15 Jul, 2014 [facility] [place] [facility] [address] [id number] [place] [address] 15 Jul, 2014 [facility] [place] [facility] [address] [id number] [place] [address] 11 Jul, 2014 [facility] [place] [facility] [address] [id number] [place] [address] Jul, [facility] [place] [facility] [address] [id number] [place] [address] Jun, [facility] [place] [facility] [address] [id number] [place] [address] Jun, [facility] [place] [facility] [address] [id number] [place] [address] Jun, [facility] [place] [facility] [address] [id number] [place] [address] Jun, [facility] [place] [facility] [address] [id number] [place] [address] Jun, [facility] [place] [facility] [address] [id number] [place] [address] Jun, [facility] [place] [facility] [address] [id number] [place] [address] Jun, [facility] [place] [facility] [address] [id number] [place] [address] Jun, [facility] [place] [facility] [address] [id number] [place] [address] Jun, [facility] [place] [facility] [address] [id number] [place] [address] Jun, [facility] [place] [facility] [address] [id number] [place] [address] Jun, [facility] [place] [facility] [address] [id number] [place] [address] Jun, [facility] [place] [facility] [address] [id number] [place] [address] Jun, [facility] [place] [facility] [address] [id number] [place] [address] Jun, [facility] [place] [facility] [address] [id number] [place] [address] Jun, [facility] [place] [facility] [address] [id number] [place] [address] Jun, [facility] [place] [facility] [address] [id number] [place] [address] Jun, [facility] [place] [facility] [address] [id number] [place] [address] Jun, [facility] [place] [facility] [address] [id number] [place] [address] Jun, [facility] [place] [facility] [address] [id number] [place] [address] Jun, [facility] [place] [facility] [address] [id number] [place] [address] Jun, [facility] [place] [facility] [address] [id number] [place] [address] Jun, [facility] [place] [facility] [address] [id number] [place] [address] May, [facility] [place] [facility] [address] [id number] [place] [address] May, [facility] [place] [facility] [address] [id number] [place] [address] May, [facility] [place] [facility] [address] [id number] [place] [address] May, [facility] [place] [facility] [address] [id number] [place] [address] May, [facility] [place] [facility] [address] [id number] [place] [address] May, [facility] [place] [facility] [address] [id number] [place] [address] May, [facility] [place] [facility] [address] [id number] [place] [address] May, [facility] [place] [facility] [address] [id number] [place] [address] May, [facility] [place] [facility] [address] [id number] [place] [address] May, [facility] [place] [facility] [address] [id number] [place] [address] May, [facility] [place] [facility] [address] [id number] [place] [address] May, [facility] [place] [facility] [address] [id number] [place] [address] May, [facility] [place] [facility] [address] [id number] [place] [address] Apr, [facility] [place] [facility] [address] [id number] [place] [address] Apr, [facility] [place] [facility] [address] [id number] [place] [address] Apr, [facility] [place] [facility] [address] [id number] [place] [address] Apr, [facility] [place] [facility] [address] [id number] [place] [address] Apr, [facility] [place] [facility] [address] [id number] [place] [address] Apr, [facility] [place] [facility] [address] [id number] [place] [address] Apr, [facility] [place] [facility] [address] [id number] [place] [address] Apr, [facility] [place] [facility] [address] [id number] [place] [address] Apr, [facility] [place] [facility] [address] [id number] [place] [address] March, [facility] [place] [facility] [address] [id number] [place] [address] March, [facility] [place] [facility] [address] [id number] [place] [address] March, [facility] [place] [facility] [address] [id number] [place] [address] March, [facility] [place] [facility] [address] [id number] [place] [address] March, [facility] [place] [facility] [address] [id number] [place] [address] March, [facility] [place] [facility] [address] [id number] [place] [address] March, [facility] [place] [facility] [address] [id number] [place] [address] March, [facility] [place] [facility] [address] [id number] [place] [address] March, [facility] [place] [facility] [address] [id number] [place] [address] March, [facility] [place] [facility] [address] [id number] [place] [address] March, [facility] [place] [facility] [address] [id number] [place] [address] March, [facility] [place] [facility] [address] [id number] [place] [address] March, [facility] [place] [facility] [address] [id number] [place] [address] March, [facility] [place] [facility] [address] [id number] [place] [address] March, [facility] [place] [facility] [address] [id number] [place] [address] March, [facility] [place] [facility] [address] [id number] [place] [address] March, [facility] [place] [facility] [address] [id number] [place] [address] March, [facility] [place] [facility] [address] [id number] [place] [address] March, [facility] [place] [facility] [address] [id number] [place] [address] March, [facility] [place] [facility] [address] [id number] [place] [address] Feb, [facility] [place] [facility] [address] [id number] [place] [address] Feb, [facility] [place] [facility] [address] [id number] [place] [address] 24 Feb, 2014 [facility] [place] [facility] [address] [id number] [place] [address] Feb, [facility] [place] [facility] [address] [id number] [place] [address] Feb, [facility] [place] [facility] [address] [id number] [place] [address] Feb, [facility] [place] [facility] [address] [id number] [place] [address] Feb, [facility] [place] [facility] [address] [id number] [place] [address] Feb, [facility] [place] [facility] [address] [id number] [place] [address] Jan, [facility] [place] [facility] [address] [id number] [place] [address] Jan, [facility] [place] [facility] [address] [id number] [place] [address] Jan, [facility] [place] [facility] [address] [id number] [place] [address] Jan, [facility] [place] [facility] [address] [id number] [place] [address] Jan, [facility] [place] [facility] [address] [id number] [place] [address] Jan, [facility] [place] [facility] [address] [id number] [place] [address] Jan, [facility] [place] [facility] [address] [id number] [place] [address] Jan, [facility] [place] [facility] [address] [id number] [place] [address] Jan, [facility] [place] [facility] [address] [id number] [place] [address] Jan, [facility] [place] [facility] [address] [id number] [place] [address] Dec, [facility] [place] [facility] [address] [id number] [place] [address] Dec, [facility] [place] [facility] [address] [id number] [place] [address] Dec, [facility] [place] [facility] [address] [id number] [place] [address] Dec, [facility] [place] [facility] [address] [id number] [place] [address] Dec, [facility] [place] [facility] [address] [id number] [place] [address] Dec, [facility] [place] [facility] [address] [id number] [place] [address] Dec, [facility] [place] [facility] [address] [id number] [place] [address] Dec, [facility] [place] [facility] [address] [id number] [place] [address] Nov, [facility] [place] [facility] [address] [id number] [place] [address] Nov, [facility] [place] [facility] [address] [id number] [place] [address] Nov, [facility] [place] [facility] [address] [id number] [place] [address] Nov, [facility] [place] [facility] [address] [id number] [place] [address] Nov, [facility] [place] [facility] [address] [id number] [place] [address] Nov, [facility] [place] [facility] [address] [id number] [place] [address] Nov, [facility] [place] [facility] [address] [id number] [place] [address] Nov, [facility] [address] [id number] [place] [address] Nov, [facility] [address] [id number] [place] [address] Nov, [facility] [address] [id number] [place] [address] Nov, [facility] [address] [id number] [place] [address] Nov, [facility] [address] [id number] [place] [address] Nov, [facility] [address] [id number] [place] [address] Oct, [facility] [address] [id number] [place] [address] 30 Oct, 2013 [facility] [place] [facility] [address] [id number] [place] [address] Oct, [facility] [address] [id number] [place] [address] Oct, [facility] [place] [facility] [address] [id number] [place] [address] Oct, [facility] [address] [id number] [place] [address] Oct, [facility] [place] [facility] [address] [id number] [place] [address] 18 Oct, 2013 [facility] [place] [facility] [address] [id number] [place] [address] 18 Oct, 2013 [facility] [place] [facility] [address] [id number] [place] [address] 17 Oct, 2013 [facility] [place] [facility] [address] [id number] [place] [address] 17 Oct, 2013 [facility] [place] [facility] [address] [id number] [place] [address] Oct, [facility] [place] [facility] [address] [id number] [place] [address] Oct, [facility] [place] [facility] [address] [id number] [place] [address] Oct, [facility] [place] [facility] [address] [id number] [place] [address] Oct, [facility] [place] [facility] [address] [id number] [place] [address] Sep, [facility] [place] [facility] [address] [id number] [place] [address] Sep, [facility] [place] [facility] [address] [id number] [place] [address] Sep, [facility] [place] [facility] [address] [id number] [place] [address] Sep, [facility] [place] [facility] [address] [id number] [place] [address] Sep, [facility] [place] [facility] [address] [id number] [place] [address] Sep, [facility] [place] [facility] [address] [id number] [place] [address] Sep, [facility] [place] [facility] [address] [id number] [place] [address] Sep, [facility] [place] [facility] [address] [id number] [place] [address] Sep, [facility] [place] [facility] [address] [id number] [place] [address] Sep, [facility] [place] [facility] [address] [id number] [place] [address] Aug, [facility] [place] [facility] [address] [id number], [place] [address] 24 Aug, 2013 [facility] [place] [facility] [address] [id number] [place] [address] 24 Aug, 2013 [facility] [place] [facility] [address] [id number], [place] [address] 24 Aug, 2013 [facility] [place] [facility] [address] [id number] [place] [address] Aug, [facility] [place] [facility] [address] [id number], [place] [address] Aug, 2012 [facility] [place] [facility] [address] [id number] [place] [address] Aug, [facility] [place] [facility] [address] [id number], [place] [address] Aug, [facility] [place] [facility] [address] [id number], [place] [address] Aug, [facility] [place] [facility] [address] [id number], [place] [address] 22 Aug, 2013 [facility] [place] [facility] [address] [id number], [place] [address] 18 Aug, 2013 [facility] [place] [facility] [address] [id number], [place] [address] 18 Aug, 2013 [facility] [place] [facility] [address] [id number], [place] [address] 18 Aug, 2013 [facility] [place] [facility] [address] [id number], [place] [address] 18 Aug, 2012 [facility] [place] [facility] [address] [id number], [place] [address] 17 Aug, 2012 [facility] [place] [facility] [address] [id number], [place] [address] 14 Aug, 2012 [facility] [place] [facility] [address] [id number], [place] [address] 14 Aug, 2012 [facility] [place] [facility] [address] [id number] [place] [address] Aug, [facility] [address] [id number] [place] [address] 20 Jul, 2013 [facility] [place] [facility] [address] [id number] [place] [address] 19 Jul, 2013 [facility] [address] [id number] [place] [address] 18 Jul, 2013 [facility] [place] [facility] [address] [id number] [place] [address] Jul, [facility] [address] [id number] [place] [address] Jul, [facility] [address] [id number] [place] [address] Jun, [facility] [place] [facility] [address] [id number] [place] [address] Jun, [facility] [address] [id number] [place] [address] Jun, [facility] [place] [facility] [address] [id number] [place] [address] Jun, [facility] [address] [id number] [place] [address] Jun, [facility] [place] [facility] [address] [id number] [place] [address] Jun, [facility] [place] [facility] [address] [id number] [place] [address] Jun, [facility] [place] [facility] [address] [id number] [place] [address] Jun, [facility] [place] [facility] [address] [id number] [place] [address] Jun, [facility] [place] [facility] [address] [id number] [place] [address] Jun, [facility] [place] [facility] [address] [id number] [place] [address] May, [facility] [place] [facility] [address] [id number] [place] [address] May, [facility] [place] [facility] [address] [id number] [place] [address] May, [facility] [place] [facility] [address] [id number] [place] [address] May, [facility] [place] [facility] [address] [id number] [place] [address] May, [facility] [place] [facility] [address] [id number] [place] [address] May, [facility] [place] [facility] [address] [id number] [place] [address] May, [facility] [place] [facility] [address] [id number] [place] [address] May, [facility] [place] [facility] [address] [id number] [place] [address] May, [facility] [place] [facility] [address] [id number] [place] [address] Apr, [facility] [place] [facility] [address] [id number] [place] [address] Apr, [facility] [place] [facility] [address] [id number] [place] [address] Apr, [facility] [place] [facility] [address] [id number] [place] [address] Apr, [facility] [place] [facility] [address] [id number] [place] [address] Apr, [facility] [place] [facility] [address] [id number] [place] [address] Apr, [facility] [place] [facility] [address] [id number], [place] [address] Apr, [facility] [address] [id number] [place] [address] March, [facility] [address] [id number] [place] [address] Feb, [facility] [address] [id number] [place] [address] Feb, [facility] [address] [id number] [place] [address] Feb, [facility] [address] [id number] [place] [address] Jan, [facility] [address] [id number] [place] [address] Jan, [facility] [address] [id number] [place] [address] Jan, [facility] [address] [id number] [place] [address] 14 Jan, 2013 [facility] [address] [id number] [place] [address] Jan, [facility] [address] [facility] [id number] [place] [address] Jan, [facility] [address] [id number] [place] [address] Jan, [facility] [address] [id number] [place] [address] Jan, [facility] [address] [id number] [place] [address] Dec, [facility] [place] [facility] [address] [id number] [place] [address] Dec, [facility] [address] [facility] [id number][place] [address] Dec, [facility] [address] [id number] [place] [address] 11 Dec, 2012 [facility] [address] [id number] [place] [address] 07 Dec, 2012 [facility] [place] [facility] [address] [id number] [place] [address] 06 Dec, 2012 [facility] [place] [facility] [address] [id number] [place] [address] 05 Dec, 2012 [facility] [address] [id number] [place] [address] Nov, [facility] [place] [facility] [address] [id number] [place] [address] 24 Nov, 2012 [facility] [address] [id number] [place] [address] Nov, [facility] [address] [id number] [place] [address] 15 Nov, 2012 [facility] [place] [facility] [address] [id number] [place] [address] Nov, [facility] [address] [id number] [place] [address] Nov, [facility] [place] [facility] [address] [id number] [place] [address] Nov, [facility] [place] [facility] [address] [id number] [place] [address] Oct, [facility] [place] [facility] [address] [id number] [place] [address] Oct, [facility] [place] [facility] [address] [id number] [place] [address] Oct, [facility] [place] [facility] [address] [id number] [place] [address] Oct, [facility] [place] [facility] [address] [id number], [place] [address] Oct, [facility] [place] [facility] [address] [id number] [place] [address] Oct, [facility] [place] [facility] [address] [id number] [place] [address] Oct, [facility] [place] [facility] [address] [id number] [place] [address] Oct, [facility] [place] [facility] [address] [id number] [place] [address] Oct, [facility] [place] [facility] [address] [id number] [place] [address] Oct, [facility] [place] [facility] [address] [id number] [place] [address] Oct, [facility] [place] [facility] [address] [facility] [id number] [place] [address] Oct, [facility] [place] [facility] [address] [id number] [place] [address] Sep, [facility] [place] [facility] [address] [id number] [place] [address] Sep, [facility] [place] [facility] [address] [facility] [id number], [place] [address] Sep, [facility] [place] [facility] [address] [id number], [place] [address] Sep, [facility] [place] [facility] [address] [id number], [place] [address] Sep, [facility] [place] [facility] [address] [id number], [place] [address] Sep, [facility] [place] [facility] [address] [id number], [place] [address] Sep, [facility] [place] [facility] [address] [facility] [id number] [place] [address] Sep, [facility] [place] [facility] [address] [id number] [place] [address] Sep, [facility] [place] [facility] [address] [id number] [place] [address] Sep, [facility] [place] [facility] [address] [id number] [place] [address] Sep, [facility] [place] [facility] [address] [id number] [place] [address] Aug, [facility] [place] [facility] [address] [id number] [place] [address] Aug, [facility] [place] [facility] [address] [id number] [place] [address] Aug, [facility] [place] [facility] [address] [id number] [place] [address] Aug, [facility] [place] [facility] [address] [id number] [place] [address] Aug, [facility] [place] [facility] [address] [id number] [place] [address] Aug, [facility] [place] [facility] [address] [id number] [place] [address] Aug, [facility] [place] [facility] [address] [id number] [place] [address] Aug, [facility] [place] [facility] [address] [address] [id number] [place] [address] Aug, [facility] [place] [facility] [address] [id number] [place] [address] Aug, [facility] [place] [facility] [address] [id number] [place] [address] 22 Jul, 2012 [facility] [place] [facility] [address] [id number] [place] [address] 20 Jul, 2012 [facility] [place] [facility] [address] [id number] [place] [address] Jul, [facility] [place] [facility] [address] [id number] [place] [address] Jul, [facility] [place] [facility] [address] [id number] [place] [address] Jun, [facility] [place] [facility] [address] [id number] [place] [address] Jun, [facility] [place] [facility] [address] [id number] [place] [address] Jun, [facility] [place] [facility] [address] [id number] [place] [address] Jun, [facility] [place] [facility] [address] [id number] [place] [address] Jun, [facility] [place] [facility] [address] [id number] [place] [address] Jun, [facility] [place] [facility] [address] [id number] [place] [address] Jun, [facility] [place] [facility] [address] [id number] [place] [address] May, [facility] [place] [facility] [address] [id number] [place] [address] May, [facility] [place] [facility] [address] [id number] [place] [address] May, [facility] [place] [facility] [address] [id number] [place] [address] May, [facility] [place] [facility] [address] [id number] [place] [address] May, [facility] [place] [facility] [address] [id number] [place] [address] Apr, [facility] [place] [facility] [address] [id number] [place] [address] Apr, [facility] [place] [facility] [address] [id number] [place] [address] 13 Apr, 2012 [facility] [address] [id number] [place] [address] Apr, [facility] [place] [facility] [address] [id number] [place] [address] Apr, [facility] [place] [facility] [address] [id number] [place] [address] March, [facility] [place] [facility] [address] [id number] [place] [address] March, [facility] [address] [id number] [place] [address] March, [facility] [place] [facility] [address] [id number] [place] [address] March, [facility] [address] [id number] [place] [address] March, [facility] [address] [id number] [place] [address] March, [facility] [place] [facility] [address] [id number] [place] [address] March, [facility] [place] [facility] [address] [id number] [place] [address] March, [facility] [place] [facility] [address] [id number] [place] [address] March, [facility] [place] [facility] [address] [id number] [place] [address] March, [facility] [place] [facility] [address] [id number] [place] [address] Feb, [facility] [place] [facility] [address] [id number] [place] [address] Feb, [facility] [place] [facility] [address] [id number] [place] [address] Feb, [facility] [place] [facility] [address] [id number] [place] [address] Feb, [facility] [place] [facility] [address] [id number] [place] [address] Feb, [facility] [place] [facility] [address] [id number] [place] [address] Feb, [facility] [place] [facility] [address] [id number] [place] [address] Feb, [facility] [place] [facility] [address] [id number] [place] [address] Feb, [facility] [place] [facility] [address] [id number] [place] [address] Feb, [facility] [place] [facility] [address] [id number] [place] [address] Jan, [facility] [place] [facility] [address] [id number] [place] [address] Jan, [facility] [place] [facility] [address] [id number] [place] [address] Jan, [facility] [place] [facility] [address] [id number] [place] [address] Jan, [facility] [place] [facility] [address] [id number] [place] [address] Dec, [facility] [place] [facility] [address] [id number] [place] [address] Dec, [facility] [place] [facility] [address] [id number] [place] [address] Nov, [facility] [place] [facility] [address] [id number] [place] [address] Nov, [facility] [place] [facility] [address] [id number] [place] [address] Nov, [facility] [place] [facility] [address] [id number], [place] [address] Nov, [facility] [address] [facility] [id number], [place] [address] Nov, [facility] [address] [facility] [id number], [place] [address] Oct, [facility] [address] [facility] [id number], [place] [address] Oct, [facility] [address] [facility] [id number], [place] [address] Oct, [facility] [address] [facility] [id number], [place] [address] Oct, [facility] [address] [facility] [id number], [place] [address] Oct, [facility] [id number], [place] [address] Oct, [facility] [id number], [place] [address] Oct, [facility] [address] [id number], [place] [address] Oct, [facility] [address] [id number], [place] [address] Sep, IMMUNIZATIONS No Known Immunizations SOCIAL HISTORY Never Assessed REASON FOR VISIT EMR-[facility] [place] PLAN OF CARE [...] fever, discharged 11/27/2017 11/26/2017 Hospitalization History ED [place]- Went Unrepsonsive, Hit head 2017 Hospitalization History ED [place]- Back Pain 05/05/2018
--- OUTSIDE RECORDS SUMMARY | 2019-04-16 15:33 | XMS REPORT ---
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 Name Role Phone Migration, Doctor Unavailable Unavailable PROBLEMS Type Condition ICD9-CM Code SOR97-PG Code Onset Dates Condition Status SNOMED Code Problem Coronary artery disease I25.10 Active 69357881 Problem Hypertension I10 Active 18387547 Problem Other chronic pain G89.29 Active 56892947 Problem Hyperlipidemia E78.5 Active 22390546 Problem Type 2 diabetes mellitus without complication, without long-term current use of insulin E11.9 Active 215255351 Problem Low back pain M54.5 Active 670378311 Problem Pharyngeal dysphagia R13.13 Active 21539139201213 Problem Anxiety F41.9 Active 79935531 Problem Peripheral vascular disease I73.9 Active 636788871 Problem Suprapubic catheter Z93.59 Active 594199555 Problem Reactive depression F32.9 Active 04839455 Problem Neurogenic bladder N31.9 Active 926669222 Problem Ventral hernia without obstruction or gangrene K43.9 Active 849290634 Problem Insomnia G47.00 Active 062091102 Problem Paroxysmal atrial fibrillation I48.0 Active 056945481 Problem 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 Active 19223608 Problem Encounter for suprapubic catheter care Z43.5 Active 231382425 ALLERGIES No Information ENCOUNTERS Encounter Location Date Diagnosis [facility] [address] [place] [id number] Jun, [facility] [address] [place] [id number] March, [facility] [address] [facility] [id number] [address] Feb, Other chronic pain G89.29 [facility] [address] [place] [id number] Feb, Neurogenic bladder N31.9 and Suprapubic catheter Z93.59 [facility] [address] [facility] [id number] [place] [address] Jan, Anxiety F41.9 [facility] [address] [place] [address] Dec, Anxiety F41.9 [facility] [id number] [place] [address] Dec, Other chronic pain G89.29 and Anxiety F41.9 [facility] [id number] [place] [address] Dec, Via [facility] [address] [place] [id number] Dec, Neurogenic bladder N31.9 and Suprapubic catheter Z93.59 [facility] [id number] [place] [address] Nov, Other chronic pain G89.29 and Anxiety F41.9 [facility] [id number] [place] [address] Nov, [facility] [address] [place] [id number] Nov, Suprapubic catheter Z93.59 [facility] [id number] [place] [address] Oct, Other chronic pain G89.29 and Anxiety F41.9 [facility] [id number] [place] [address] Oct, [facility] [id number] [place] [address] Oct, Suprapubic catheter Z93.59 [facility] [id number] [place] [address] Oct, [facility] [address] [place] [id number] Oct, [facility] [address] [place] [address] Oct, Anxiety F41.9 [facility] [address] [id number], [place] [address] 04 Oct, 2018 Anxiety F41.9 [facility] [address] [place] [id number] Oct, Other chronic pain G89.29 [facility] [address] [id number] [address] 14 Sep, 2018 Other chronic pain G89.29 [facility] [address] [place] [id number] Sep, Suprapubic catheter Z93.59 and Cervicalgia M54.2 [facility] [address] [id number] [place] [address] Sep, [facility] [address] [id number] [place] [address] Sep, [facility] [address] [facility] [id number] [place] [address] Sep, [facility] [address] [place] [id number] Aug, Cystitis N30.90 [facility] [address] [id number] [place] [address] Aug, [facility] [address] [id number] [place] [address] Aug, Other chronic pain G89.29 [facility] [address] [id number] [place] [address] Aug, Via [facility] [address] [place] [id number] Aug, Encounter for suprapubic catheter care Z43.5 [facility] [address] [id number] [place] [address] Jul, [facility] [address] [place] [id number] Jul, [facility] [address] [id number] [place] [address] Jul, Other chronic pain G89.29 [facility] [address] [id number] [address] Jul, [facility] [address] [facility] [id number], [place] [address] Jul, Via [facility] [employer] [facility] [address] [place] [id number] Jun, 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 [facility] [id number] [place] [address] Jun, Other chronic pain G89.29 [facility] [id number] [place] [address] Jun, Via [facility] [address] [place] [id number] May, Anxiety F41.9 ; Type 2 diabetes mellitus without complication, without long-term current use of insulin E11.9 ; Hypertension I10 ; Low back pain M54.5 ; Paroxysmal atrial fibrillation I48.0 and 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 [facility] [address] [id number] [address] May, Other chronic pain G89.29 [facility] [address] [place] [id number] May, Low back pain M54.5 [facility] [address] [id number] [address] May, [facility] [id number] [place] [address] Apr, Other chronic pain G89.29 [facility] [address]00565[address] [address] Apr, [facility] [address] [place] [address] Apr, [facility] [address] [place] [id number] Apr, Closed compression fracture of L3 lumbar vertebra with routine healing, subsequent encounter S32.030D [facility] [address] [place] [id number] 14 Apr, 2018 Low back pain M54.5 [facility] [address] [place] [id number] 12 Apr, 2018 Coccydynia M53.3 [facility] [address] [facility] [id number], [place] [address] March, [facility] [address] [facility] [id number] [place] [address] March, Other chronic pain G89.29 [facility] [address] [id number] [place] [address] March, [facility] [address] [facility] [id number] [place] [address] March, [facility] [id number] [place] [address] Feb, [facility] [address] [facility] [id number] [place] [address] Feb, Other chronic pain G89.29 [facility] [address] [place] [id number] Feb, Other chronic pain G89.29 and Anxiety F41.9 [facility] [address] [id number] [address] Feb, [facility] [address] [facility] [id number], [place] [address] Jan, [facility] [address] [facility] [id number], [place] [address] Jan, [facility] [address] [facility] [id number] [place] [address] 13 Jan, 2018 [facility] [address] [facility] [id number], [place] [address] 02 Jan, 2018 [facility] [address] [facility] [id number] [place] [address] Dec, [facility] [address] [facility] [address] [place] [address] Dec, Peripheral vascular disease I73.9 ; 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 ; Other chronic pain G89.29 ; Anxiety F41.9 ; Reactive depression F32.9 ; Insomnia G47.00 and Type 2 diabetes mellitus without complication, without long-term current use of insulin E11.[address] [id number] [place] [address] Nov, [facility] [address] [id number][place] [address] Nov, Anxiety F41.9 [facility] [address] [facility] [id number], [place] [address] Nov, [facility] [address] [id number][place] [address] Nov, Anxiety F41.9 [facility] [address] [facility] [place] [address] Nov, Status post surgery Z98.890 ; Confused R41.0 ; Anxiety F41.9 and Other chronic pain G89.29 [facility] [address] [id number][place] [address] Nov, Other chronic pain G89.29 [facility] [address] [facility] [id number], [place] [address] Oct, [facility] [address] [id number][place] [address] Oct, Other chronic pain G89.29 [facility] [address] [facility] [id number][place] [address] Oct, Anxiety F41.9 [facility] [address] [id number][place] [address] Sep, Other chronic pain G89.29 [facility] [address] [id number][place] [address] Sep, [facility] [address] [place] [id number] Aug, Dysuria R30.0 and Anxiety F41.9 [facility] [address] [place] [address] Aug, [facility] [place] [id number] [place] [id number] Aug, Other chronic pain G89.29 [facility] [id number] [place] [address] Jul, Other chronic pain G89.29 [facility] [place] [id number] [place] [id number] Jun, [facility] [id number] [place] [id number] Jun, Other chronic pain G89.29 [facility] [id number] [place] [address] Jun, [facility] [id number] [place] [address] May, Other chronic pain G89.29 [facility] [id number] [place] [address] Apr, Other chronic pain G89.29 [facility] [address] [place] [id number] Apr, Reactive depression F32.9 and Pharyngeal dysphagia R13.13 [facility] [address] [place] [address] Apr, Urinary tract infection without hematuria, site unspecified N39.0 [facility] [address] [place] [address] March, Other chronic pain G89.29 [facility] [address] [place] [address] Feb, Other chronic pain G89.29 [facility] [id number] [place] [address] Feb, [facility] [place] [id number][place] [address] Feb, [facility] [address] [place] [id number] Feb, Dysuria R30.0 and Ventral hernia without obstruction or gangrene K43.9 [facility] [address] [facility] [id number] [place] [address] Jan, Other chronic pain G89.29 [facility] [place] [id number] [place] [id number] Dec, Other chronic pain G89.29 [facility] [address] [place] [address] Nov, Other chronic pain G89.29 [facility] [address] [place] [id number] Nov, Lymphadenitis I88.9 [facility] [address] [place] [address] Nov, Other chronic pain G89.29 [facility] [address] [place] [address] Nov, [facility] [place] [id number] [place] [id number] Nov, Other chronic pain G89.29 [facility] [address] [place] [id number] Oct, Low back pain M54.5 ; Hypertension I10 and Type 2 diabetes mellitus without complication, without long-term current use of insulin E11.9 [facility] [address] [facility] [id number], [place] [address] Oct, [facility] [id number] [place] [address] Oct, [facility] [address] [id number], [place] [address] Oct, [facility] [address]00565100[place], [place] [address] Oct, [facility] [address] [facility] [id number], [place] [address] Sep, [facility] [address] [facility] [id number], [place] [address] Sep, [facility] [address]00565100[place], [place] [address] Aug, Other chronic pain G89.29 [facility] [address] [facility] [id number], [place] [address] Jul, [facility] [address] [facility] [id number] [place] [address] Jul, [facility] [address]00565100[place], [place] [address] Jul, [facility] [address]00565100[place], [place] [address] Jun, [facility] [address] [id number], [place] [address] Jun, [facility] [address] [place] [id number] Jun, Low back pain M54.5 ; Other chronic pain G89.29 and Coronary artery disease I25.10 [facility] [address] [id number], [place] [address] Jun, [facility] [address] [id number], [place] [address] May, [facility] [address] [id number], [place] [address] May, [facility] [address] [id number], [place] [address] May, Other chronic pain G89.29 [facility] [address] [id number], [place] [address] May, [facility] [address]00565100[place], [place] [address] Apr, [facility] [address] [id number], [place] [address] Apr, Acute cystitis without hematuria N30.00 [facility] [address]00565100[place], [place] [address] 16 Apr, 2016 Acute cystitis without hematuria N30.00 ; Coronary artery disease I25.10 ; Low back pain M54.5 and Other chronic pain G89.29 [facility] [address]00565100[place], [place] [address] Apr, Other chronic pain G89.29 [facility] [address] [id number], [place] [address] March, Other chronic pain G89.29 [facility] [id number] [place] [address] Feb, [facility] [address] [place] [address] Feb, Arthritis M19.90 [facility] [id number] [place] [address] Feb, [facility] [address]00565100[place], [place] [address] Jan, [facility] [address]00565100[place], [place] [address] Jan, [facility] [address]00565100[place], [place] [address] Jan, Other chronic pain G89.29 [facility] [address]00565100[place], [place] [address] Jan, Hypertension I10 ; Coronary artery disease I25.10 and Insomnia G47.00 [facility] [address]00565100[place], [place] [address] Jan, [facility] [address] [facility] [id number], [place] [address] Dec, Right hip pain M25.551 [facility] [address] [facility] [id number], [place] [address] Dec, [facility] [address] [facility] [id number], [place] [address] Dec, [facility] [address] [facility] [id number] [place] [address] Dec, [facility] [address] [facility] [id number] [place] [address] Dec, Other chronic pain G89.29 [facility] [address]00565100[place], [place] [address] Dec, [facility] [address] [place] [address] Nov, [facility] [address]00565100[place], [place] [address] Nov, Other chronic pain G89.29 [facility] [address]00565100[place], [place] [address] Nov, Right hip pain M25.551 and Coronary artery disease I25.10 [facility] [address]00565100[place], [place] [address] Nov, Other chronic pain G89.29 [facility] [address]00565100[place], [place] [address] Oct, [facility] [address]00565100[place], [place] [address] Oct, [facility] [address]00565100[place], [place] [address] Sep, [facility] [address]00565100[place], [place] [address] Sep, [facility] [address] [facility] [id number], [place] [address] Aug, [facility] [id number] [place] [address] Aug, Hypertension I10 ; Coronary artery disease I25.10 and Arthritis M19.90 [facility] [address] [id number], [place] [address] Jun, [facility] [id number] [place] [address] Jun, Essential hypertension, benign 401.1 ; Other chronic pain 338.29 and Chronic airway obstruction, not elsewhere classified 496 [facility] [address]00565100[place], [place] [address] Jun, [facility] [address]00565100[place], [place] [address] Jun, [facility] [address]00565100[place], [place] [address] Jun, [facility] [address]00565100[place], [place] [address] May, [facility] [address]00565100[place], [place] [address] May, [facility] [address]00565100[place], [place] [address] Apr, [facility] [address] [id number], [place] [address] Apr, [facility] [address] [id number] [place] [address] Apr, [facility] [address] [id number], [place] [address] March, [facility] [address] [id number] [place] [address] March, [facility] [address] [id number] [place] [address] March, [facility] [address] [id number] [place] [address] March, [facility] [address] [id number] [place] [address] March, Sialadenitis 527.2 [facility] [address] [id number] [place] [address] Feb, [facility] [address] [id number] [place] [address] Feb, [facility] [address] [id number] [place] [address] Feb, [facility] [address] [id number] [place] [address] Feb, [facility] [address] [facility] [id number] [place] [address] Feb, [facility] [address] [id number] [place] [address] Jan, [facility] [address] [id number] [place] [address] Jan, [facility] [address] [facility] [id number] [place] [address] Jan, [facility] [address] [facility] [id number] [place] [address] Jan, [facility] [address] [id number] [place] [address] Jan, [facility] [address] [id number] [place] [address] Jan, [facility] [address] [id number] [place] [address] Dec, [facility] [address] [id number] [place] [address] Dec, [facility] [place] [facility] [address] [id number] [place] [address] Dec, [facility] [place] [facility] [address] [id number] [place] [address] Dec, [facility] [place] [facility] [address] [id number] [place] [address] Dec, [facility] [place] [facility] [address] [id number] [place] [address] Dec, [facility] [place] [facility] [address] [id number] [place] [address] Nov, [facility] [place] [facility] [address] [id number] [place] [address] Nov, [facility] [place] [facility] [address] [id number] [place] [address] Nov, [facility] [place] [facility] [address] [id number] [place] [address] Nov, [facility] [place] [facility] [address] [id number] [place] [address] Nov, [facility] [place] [facility] [address] [id number] [place] [address] Nov, [facility] [place] [facility] [address] [id number], [place] [address] Nov, [facility] [place] [facility] [address] [id number], [place] [address] Nov, [facility] [place] [facility] [address] [id number], [place] [address] Nov, [facility] [place] [facility] [address] [id number], [place] [address] Nov, [facility] [place] [facility] [address] [id number] [place] [address] Nov, [facility] [place] [facility] [address] [id number] [place] [address] Nov, [facility] [place] [facility] [address] [id number] [place] [address] Nov, [facility] [place] [facility] [address] [id number] [place] [address] Nov, [facility] [place] [facility] [address] [id number] [place] [address] Oct, [facility] [place] [facility] [address] [id number] [place] [address] Oct, [facility] [place] [facility] [address] [id number] [place] [address] Oct, [facility] [place] [facility] [address] [id number] [place] [address] Oct, [facility] [place] [facility] [address] [id number] [place] [address] Oct, [facility] [place] [facility] [address] [id number] [place] [address] Oct, [facility] [place] [facility] [address] [id number] [place] [address] Oct, [facility] [place] [facility] [address] [id number] [place] [address] Oct, [facility] [place] [facility] [address] [id number] [place] [address] Oct, [facility] [place] [facility] [address] [id number] [place] [address] Sep, [facility] [place] [facility] [address] [id number] [place] [address] Sep, [facility] [place] [facility] [address] [id number] [place] [address] Sep, [facility] [place] [facility] [address] [id number] [place] [address] Sep, [facility] [place] [facility] [address] [id number] [place] [address] Sep, [facility] [place] [facility] [address] [id number] [place] [address] Sep, [facility] [place] [facility] [address] [id number] [place] [address] Sep, [facility] [place] [facility] [address] [id number] [place] [address] Sep, [facility] [place] [facility] [address] [id number] [place] [address] Sep, [facility] [place] [facility] [address] [id number] [place] [address] Sep, [facility] [place] [facility] [address] [id number] [place] [address] Sep, [facility] [place] [facility] [address] [id number] [place] [address] Sep, [facility] [place] [facility] [address] [id number] [place] [address] Aug, [facility] [place] [facility] [address] [id number], [place] [address] Aug, [facility] [place] [facility] [address] [id number], [place] [address] Aug, [facility] [place] [facility] [address] [id number], [place] [address] Aug, [facility] [place] [facility] [address] [id number] [place] [address] Aug, [facility] [place] [facility] [address] [id number], [place] [address] Aug, [facility] [place] [facility] [address] [id number] [place] [address] Aug, [facility] [place] [facility] [address] [id number] [place] [address] 17 Aug, 2014 [facility] [place] [facility] [address] [id number] [place] [address] 30 Jul, 2013 [facility] [place] [facility] [address] [id number] [place] [address] 30 Jul, 2013 [facility] [place] [facility] [address] [id number] [place] [address] 30 Jul, 2013 [facility] [place] [facility] [address] [id number] [place] [address] 30 Jul, 2013 [facility] [place] [facility] [address] [id number] [place] [address] 25 Jul, 2013 [facility] [place] [facility] [address] [id number] [place] [address] 25 Jul, 2013 [facility] [place] [facility] [address] [id number] [place] [address] 15 Jul, 2013 [facility] [place] [facility] [address] [id number] [place] [address] 15 Jul, 2013 [facility] [place] [facility] [address] [id number] [place] [address] 11 Jul, 2013 [facility] [place] [facility] [address] [id number] [place] [address] 11 Jul, 2013 [facility] [place] [facility] [address] [id number] [place] [address] Jun, [facility] [place] [facility] [address] [id number] [place] [address] Jun, [facility] [place] [facility] [address] [id number] [place] [address] Jun, [facility] [place] [facility] [address] [id number] [place] [address] Jun, [facility] [place] [facility] [address] [id number] [place] [address] Jun, [facility] [place] [facility] [address] [id number] [place] [address] Jun, [facility] [place] [facility] [address] [id number] [place] [address] Jun, [facility] [place] [facility] [address] [id number] [place] [address] Jun, [facility] [place] [facility] [address] [id number] [place] [address] Jun, [facility] [place] [facility] [address] [id number] [place] [address] Jun, [facility] [place] [facility] [address] [id number] [place] [address] Jun, [facility] [place] [facility] [address] [id number] [place] [address] Jun, [facility] [place] [facility] [address] [id number] [place] [address] Jun, [facility] [place] [facility] [address] [id number] [place] [address] Jun, [facility] [place] [facility] [address] [id number] [place] [address] Jun, [facility] [place] [facility] [address] [id number] [place] [address] Jun, [facility] [place] [facility] [address] [id number] [place] [address] Jun, [facility] [place] [facility] [address] [id number] [place] [address] Jun, [facility] [place] [facility] [address] [id number] [place] [address] Jun, [facility] [place] [facility] [address] [id number] [place] [address] Jun, [facility] [place] [facility] [address] [id number] [place] [address] Jun, [facility] [place] [facility] [address] [id number] [place] [address] Jun, [facility] [place] [facility] [address] [id number] [place] [address] May, [facility] [place] [facility] [address] [id number] [place] [address] May, [facility] [place] [facility] [address] [id number] [place] [address] May, [facility] [place] [facility] [address] [id number] [place] [address] May, [facility] [place] [facility] [address] [id number] [place] [address] May, [facility] [place] [facility] [address] [id number] [place] [address] May, [facility] [place] [facility] [address] [id number] [place] [address] May, [facility] [place] [facility] [address] [id number] [place] [address] May, [facility] [place] [facility] [address] [id number] [place] [address] May, [facility] [place] [facility] [address] [id number] [place] [address] May, [facility] [place] [facility] [address] [id number] [place] [address] May, [facility] [place] [facility] [address] [id number] [place] [address] May, [facility] [place] [facility] [address] [id number] [place] [address] May, [facility] [place] [facility] [address] [id number] [place] [address] Apr, [facility] [place] [facility] [address] [id number] [place] [address] Apr, [facility] [place] [facility] [address] [id number] [place] [address] Apr, [facility] [place] [facility] [address] [id number] [place] [address] Apr, [facility] [place] [facility] [address] [id number] [place] [address] Apr, [facility] [place] [facility] [address] [id number] [place] [address] Apr, [facility] [place] [facility] [address] [id number] [place] [address] Apr, [facility] [place] [facility] [address] [id number] [place] [address] Apr, [facility] [place] [facility] [address] [id number] [place] [address] Apr, [facility] [place] [facility] [address] [id number] [place] [address] March, [facility] [place] [facility] [address] [id number] [place] [address] March, [facility] [place] [facility] [address] [id number] [place] [address] March, [facility] [place] [facility] [address] [id number] [place] [address] March, [facility] [place] [facility] [address] [id number] [place] [address] March, [facility] [place] [facility] [address] [id number] [place] [address] March, [facility] [place] [facility] [address] [id number] [place] [address] March, [facility] [place] [facility] [address] [id number] [place] [address] March, [facility] [address] [id number] [place] [address] March, [facility] [place] [facility] [address] [id number] [place] [address] March, [facility] [place] [facility] [address] [id number] [place] [address] March, [facility] [place] [facility] [address] [id number] [place] [address] March, [facility] [place] [facility] [address] [id number] [place] [address] March, [facility] [place] [facility] [address] [id number] [place] [address] March, [facility] [place] [facility] [address] [id number] [place] [address] March, [facility] [place] [facility] [address] [id number] [place] [address] March, [facility] [place] [facility] [address] [id number] [place] [address] March, [facility] [place] [facility] [address] [id number] [place] [address] March, [facility] [place] [facility] [address] [id number] [place] [address] March, [facility] [place] [facility] [address] [id number] [place] [address] March, [facility] [place] [facility] [address] [id number] [place] [address] Feb, [facility] [place] [facility] [address] [id number] [place] [address] Feb, [facility] [place] [facility] [address] [id number] [place] [address] Feb, [facility] [place] [facility] [address] [id number] [place] [address] Feb, [facility] [place] [facility] [address] [id number] [place] [address] Feb, [facility] [place] [facility] [address] [id number] [place] [address] Feb, [facility] [place] [facility] [address] [id number] [place] [address] Feb, [facility] [place] [facility] [address] [id number] [place] [address] Feb, [facility] [place] [facility] [address] [id number] [place] [address] Jan, [facility] [place] [facility] [address] [id number] [place] [address] Jan, [facility] [place] [facility] [address] [id number] [place] [address] Jan, [facility] [place] [facility] [address] [id number] [place] [address] Jan, [facility] [place] [facility] [address] [id number] [place] [address] Jan, [facility] [place] [facility] [address] [id number] [place] [address] Jan, [facility] [place] [facility] [address] [id number] [place] [address] Jan, [facility] [place] [facility] [address] [id number] [place] [address] Jan, [facility] [place] [facility] [address] [id number] [place] [address] Jan, [facility] [place] [facility] [address] [id number] [place] [address] Jan, [facility] [place] [facility] [address] [id number] [place] [address] Dec, [facility] [place] [facility] [address] [id number] [place] [address] Dec, [facility] [place] [facility] [address] [id number] [place] [address] Dec, [facility] [place] [facility] [address] [id number] [place] [address] Dec, [facility] [place] [facility] [address] [id number] [place] [address] Dec, [facility] [place] [facility] [address] [id number] [place] [address] Dec, [facility] [place] [facility] [address] [id number] [place] [address] Dec, [facility] [place] [facility] [address] [id number] [place] [address] Dec, [facility] [place] [facility] [address] [id number] [place] [address] Nov, [facility] [place] [facility] [address] [id number] [place] [address] Nov, [facility] [place] [facility] [address] [id number] [place] [address] Nov, [facility] [place] [facility] [address] [id number] [place] [address] Nov, [facility] [place] [facility] [address] [id number] [place] [address] Nov, [facility] [place] [facility] [address] [id number] [place] [address] Nov, [facility] [place] [facility] [address] [id number] [place] [address] Nov, [facility] [place] [facility] [address] [id number] [place] [address] Nov, [facility] [place] [facility] [address] [id number], [place] [address] Nov, [facility] [address] [id number] [place] [address] Nov, [facility] [place] [facility] [address] [id number] [place] [address] Nov, [facility] [address] [id number] [place] [address] Nov, [facility] [place] [facility] [address] [id number] [place] [address] Nov, [facility] [address] [id number] [place] [address] Oct, [facility] [place] [facility] [address] [id number] [place] [address] Oct, [facility] [address] [id number] [place] [address] Oct, [facility] [place] [facility] [address] [id number] [place] [address] Oct, [facility] [address] [id number] [place] [address] Oct, [facility] [place] [facility] [address] [id number] [place] [address] Oct, [facility] [address] [id number] [place] [address] 18 Oct, 2013 [facility] [place] [facility] [address] [id number] [place] [address] 18 Oct, 2013 [facility] [place] [facility] [address] [id number] [place] [address] 17 Oct, 2013 [facility] [place] [facility] [address] [id number] [place] [address] 17 Oct, 2013 [facility] [place] [facility] [address] [id number] [place] [address] Oct, [facility] [place] [facility] [address] [id number] [place] [address] Oct, [facility] [address] [id number] [place] [address] Oct, [facility] [place] [facility] [address] [id number] [place] [address] Oct, [facility] [place] [facility] [address] [id number] [place] [address] Sep, [facility] [place] [facility] [address] [id number] [place] [address] Sep, [facility] [place] [facility] [address] [id number] [place] [address] Sep, [facility] [place] [facility] [address] [id number] [place] [address] Sep, [facility] [place] [facility] [address] [id number] [place] [address] Sep, [facility] [place] [facility] [address] [id number] [place] [address] Sep, [facility] [place] [facility] [address] [id number] [place] [address] Sep, [facility] [place] [facility] [address] [id number] [place] [address] Sep, [facility] [place] [facility] [address] [id number] [place] [address] Sep, [facility] [place] [facility] [address] [id number] [place] [address] Sep, [facility] [place] [facility] [address] [id number] [place] [address] Aug, [facility] [place] [facility] [address] [id number] [place] [address] Aug, [facility] [place] [facility] [address] [id number] [place] [address] Aug, [facility] [place] [facility] [address] [id number] [place] [address] 24 Aug, 2013 [facility] [place] [facility] [address] [id number] [place] [address] Aug, [facility] [place] [facility] [address] [id number] [place] [address] Aug, [facility] [place] [facility] [address] [id number] [place] [address] Aug, [facility] [place] [facility] [address] [id number] [place] [address] Aug, [facility] [place] [facility] [address] [id number], [place] [address] Aug, [facility] [place] [facility] [address] [id number] [place] [address] Aug, [facility] [place] [facility] [address] [id number], [place] [address] 18 Aug, 2013 [facility] [place] [facility] [address] [id number] [place] [address] 18 Aug, 2013 [facility] [place] [facility] [address] [id number], [place] [address] 18 Aug, 2013 [facility] [place] [facility] [address] [id number], [place] [address] 18 Aug, 2013 [facility] [place] [facility] [address] [id number], [place] [address] 17 Aug, 2013 [facility] [place] [facility] [address] [id number], [place] [address] 14 Aug, 2013 [facility] [place] [facility] [address] [id number], [place] [address] 14 Aug, 2013 [facility] [place] [facility] [address] [id number], [place] [address] Aug, [facility] [place] [facility] [address] [id number] [place] [address] 20 Jul, 2013 [facility] [place] [facility] [address] [id number] [place] [address] 19 Jul, 2013 [facility] [place] [facility] [address] [id number] [place] [address] 18 Jul, 2013 [facility] [place] [facility] [address] [id number] [place] [address] 11 Jul, 2013 [facility] [place] [facility] [address] [id number] [place] [address] 11 Jul, 2013 [facility] [place] [facility] [address] [id number] [place] [address] Jun, [facility] [place] [facility] [address] [id number] [place] [address] Jun, [facility] [place] [facility] [address] [id number] [place] [address] Jun, [facility] [place] [facility] [address] [id number] [place] [address] 15 Jun, 2013 [facility] [place] [facility] [address] [id number] [place] [address] Jun, [facility] [place] [facility] [address] [id number] [place] [address] Jun, [facility] [place] [facility] [address] [id number] [place] [address] Jun, [facility] [place] [facility] [address] [id number] [place] [address] Jun, [facility] [place] [facility] [address] [id number] [place] [address] Jun, [facility] [place] [facility] [address] [id number] [place] [address] Jun, [facility] [place] [facility] [address] [id number] [place] [address] May, [facility] [place] [facility] [address] [id number] [place] [address] May, [facility] [place] [facility] [address] [id number] [place] [address] May, [facility] [place] [facility] [address] [id number] [place] [address] May, [facility] [place] [facility] [address] [id number] [place] [address] May, [facility] [place] [facility] [address] [id number] [place] [address] 16 May, 2013 [facility] [place] [facility] [address] [id number] [place] [address] May, [facility] [place] [facility] [address] [id number] [place] [address] May, [facility] [place] [facility] [address] [id number] [place] [address] May, [facility] [place] [facility] [address] [id number] [place] [address] Apr, [facility] [place] [facility] [address] [id number] [place] [address] Apr, [facility] [place] [facility] [address] [id number] [place] [address] Apr, [facility] [place] [facility] [address] [id number] [place] [address] Apr, [facility] [place] [facility] [address] [id number] [place] [address] Apr, [facility] [place] [facility] [address] [id number] [place] [address] Apr, [facility] [place] [facility] [address] [id number] [place] [address] Apr, [facility] [place] [facility] [address] [id number] [place] [address] March, [facility] [place] [facility] [address] [id number] [place] [address] Feb, [facility] [place] [facility] [address] [id number] [place] [address] Feb, [facility] [place] [facility] [address] [id number] [place] [address] Feb, [facility] [place] [facility] [address] [id number] [place] [address] Jan, [facility] [place] [facility] [address] [id number] [place] [address] Jan, [facility] [place] [facility] [address] [id number] [place] [address] Jan, [facility] [place] [facility] [address] [id number] [place] [address] Jan, [facility] [place] [facility] [address] [id number] [place] [address] Jan, [facility] [place] [facility] [address] [id number] [place] [address] Jan, [facility] [place] [facility] [address] [id number] [place] [address] Jan, [facility] [place] [facility] [address] [id number] [place] [address] Jan, [facility] [place] [facility] [address] [id number] [place] [address] 28 Dec, 2012 [facility] [place] [facility] [address] [id number] [place] [address] Dec, [facility] [place] [facility] [address] [id number] [place] [address] Dec, [facility] [place] [facility] [address] [id number] [place] [address] Dec, [facility] [place] [facility] [address] [id number] [place] [address] 07 Dec, 2012 [facility] [address] [id number] [place] [address] 06 Dec, 2012 [facility] [place] [facility] [address] [id number] [place] [address] 05 Dec, 2012 [facility] [place] [facility] [address] [id number] [place] [address] Nov, [facility] [place] [facility] [address] [id number] [place] [address] 24 Nov, 2012 [facility] [place] [facility] [address] [id number] [place] [address] 18 Nov, 2012 [facility] [address] [id number] [place] [address] 15 Nov, 2012 [facility] [address] [id number] [place] [address] Nov, [facility] [address] [id number] [place] [address] Nov, [facility] [address] [id number] [place] [address] Nov, [facility] [address] [id number] [place] [address] Oct, [facility] [address] [id number] [place] [address] Oct, [facility] [place] [facility] [address] [id number] [place] [address] Oct, [facility] [place] [facility] [address] [id number] [place] [address] Oct, [facility] [place] [facility] [address] [id number] [place] [address] 17 Oct, 2012 [facility] [place] [facility] [address] [id number] [place] [address] Oct, [facility] [place] [facility] [address] [id number] [place] [address] Oct, [facility] [place] [facility] [address] [id number] [place] [address] Oct, [facility] [place] [facility] [address] [facility] [id number] [place] [address] Oct, [facility] [place] [facility] [address] [id number] [place] [address] Oct, [facility] [place] [facility] [address] [id number] [place] [address] Oct, [facility] [place] [facility] [address] [id number] [place] [address] Oct, [facility] [place] [facility] [address] [facility] [id number] [place] [address] Sep, [facility] [place] [facility] [address] [id number], [place] [address] Sep, [facility] [place] [facility] [address] [id number], [place] [address] Sep, [facility] [place] [facility] [address] [facility] [id number], [place] [address] Sep, [facility] [place] [facility] [address] [id number], [place] [address] Sep, [facility] [place] [facility] [address] [id number], [place] [address] Sep, [facility] [place] [facility] [address] [id number], [place] [address] Sep, [facility] [place] [facility] [address] [facility] [id number], [place] [address] Sep, [facility] [place] [facility] [address] [facility] [id number], [place] [address] Sep, [facility] [place] [facility] [address] [id number] [place] [address] Sep, [facility] [place] [facility] [address] [id number] [place] [address] Sep, [facility] [place] [facility] [address] [id number] [place] [address] Aug, [facility] [place] [facility] [address] [id number] [place] [address] Aug, [facility] [place] [facility] [address] [id number] [place] [address] Aug, [facility] [place] [facility] [address] [id number] [place] [address] Aug, [facility] [place] [facility] [address] [id number] [place] [address] Aug, [facility] [place] [facility] [address] [id number] [place] [address] Aug, [facility] [place] [facility] [address] [id number] [place] [address] Aug, [facility] [place] [facility] [address] [id number] [place] [address] Aug, [facility] [place] [facility] [address] [facility] [id number] [place] [address] Aug, [facility] [place] [facility] [address] [id number] [place] [address] Aug, [facility] [place] [facility] [address] [id number] [place] [address] 22 Jul, 2012 [facility] [place] [facility] [address] [id number] [place] [address] 20 Jul, 2012 [facility] [place] [facility] [address] [id number] [place] [address] 10 Jul, 2012 [facility] [place] [facility] [address] [id number] [place] [address] Jul, [facility] [place] [facility] [address] [id number] [place] [address] Jun, [facility] [place] [facility] [address] [id number] [place] [address] Jun, [facility] [place] [facility] [address] [id number] [place] [address] Jun, [facility] [place] [facility] [address] [id number] [place] [address] Jun, [facility] [place] [facility] [address] [id number] [place] [address] Jun, [facility] [place] [facility] [address] [id number] [place] [address] Jun, [facility] [place] [facility] [address] [id number] [place] [address] Jun, [facility] [place] [facility] [address] [id number] [place] [address] May, [facility] [place] [facility] [address] [id number] [place] [address] May, [facility] [place] [facility] [address] [id number] [place] [address] May, [facility] [place] [facility] [address] [id number] [place] [address] May, [facility] [place] [facility] [address] [id number] [place] [address] May, [facility] [place] [facility] [address] [id number] [place] [address] Apr, [facility] [place] [facility] [address] [id number] [place] [address] Apr, [facility] [place] [facility] [address] [id number] [place] [address] Apr, [facility] [place] [facility] [address] [id number] [place] [address] Apr, [facility] [address] [id number] [place] [address] Apr, [facility] [place] [facility] [address] [id number] [place] [address] March, [facility] [place] [facility] [address] [id number] [place] [address] March, [facility] [place] [facility] [address] [id number] [place] [address] March, [facility] [place] [facility] [address] [id number] [place] [address] March, [facility] [place] [facility] [address] [id number] [place] [address] March, [facility] [address] [id number] [place] [address] March, [facility] [place] [facility] [address] [id number] [place] [address] March, [facility] [place] [facility] [address] [id number] [place] [address] March, [facility] [place] [facility] [address] [id number] [place] [address] March, [facility] [place] [facility] [address] [id number] [place] [address] March, [facility] [place] [facility] [address] [id number] [place] [address] Feb, [facility] [place] [facility] [address] [id number] [place] [address] Feb, [facility] [place] [facility] [address] [id number] [place] [address] Feb, [facility] [place] [facility] [address] [id number] [place] [address] Feb, [facility] [place] [facility] [address] [id number] [place] [address] 17 Feb, 2012 [facility] [address] [id number] [place] [address] 17 Feb, 2012 [facility] [place] [facility] [address] [id number] [place] [address] Feb, [facility] [address] [id number] [place] [address] Feb, [facility] [address] [id number] [place] [address] Feb, [facility] [address] [id number] [place] [address] 08 Jan, 2012 [facility] [address] [id number] [place] [address] Jan, [facility] [address] [id number] [place] [address] Jan, [facility] [address] [id number] [place] [address] Jan, [facility] [address] [id number] [place] [address] Dec, [facility] [address] [id number] [place] [address] Dec, [facility] [address] [id number] [place] [address] Nov, [facility] [address] [id number] [place] [address] Nov, [facility] [place] [facility] [address] [id number] [place] [address] Nov, [facility] [place] [facility] [address] [id number] [place] [address] Nov, [facility] [place] [facility] [address] [id number] [place] [address] Nov, [facility] [address] [facility] [id number] [address] Oct, [facility] [address] [facility] [id number], [place] [address] Oct, [facility] [id number] [address] Oct, [facility] [id number] [address] Oct, [facility] [address] [facility] [id number], [place] [address] Oct, [facility] [id number] [place] [address] Oct, [facility] [id number], [place] [address] Oct, [facility] [id number] [address] Oct, [facility] [address] [id number], [place] [address] Sep, IMMUNIZATIONS No Known Immunizations SOCIAL HISTORY Never Assessed REASON FOR VISIT [facility] PLAN OF CARE VITAL SIGNS MEDICATIONS Unknown Medications RESULTS No Results PROCEDURES No Known procedures INSTRUCTIONS MEDICATIONS ADMINISTERED No Known Medications MEDICAL (GENERAL) HISTORY Type Description Date 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
--- OUTSIDE RECORDS SUMMARY | 2019-04-16 15:34 | XMS REPORT ---
Author Author Migration, Doctor Organization [facility] Address Unknown Phone Unavailable Care Team Providers Care Whittling Room Operator Name Role Phone Migration, Doctor Unavailable Unavailable PROBLEMS Type Condition ICD9-CM Code IRN93-JI Code Onset Dates Condition Status SNOMED Code Problem Coronary artery disease I25.10 Active 16336716 Problem Hypertension I10 Active 44531780 Problem Other chronic pain G89.29 Active 54099877 Problem Hyperlipidemia E78.5 Active 13030947 Problem Type 2 diabetes mellitus without complication, without long-term current use of insulin E11.9 Active 370955998 Problem Low back pain M54.5 Active 831664390 Problem Pharyngeal dysphagia R13.13 Active 79158598872198 Problem Anxiety F41.9 Active 91309370 Problem Peripheral vascular disease I73.9 Active 645169982 Problem Suprapubic catheter Z93.59 Active 845104146 Problem Reactive depression F32.9 Active 18308096 Problem Neurogenic bladder N31.9 Active 487074794 Problem Ventral hernia without obstruction or gangrene K43.9 Active 818109479 Problem Insomnia G47.00 Active 686918854 Problem Paroxysmal atrial fibrillation I48.0 Active 518367976 Problem 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 Active 17119532 Problem Encounter for suprapubic catheter care Z43.5 Active [id number] ALLERGIES No Information ENCOUNTERS Encounter Location Date Diagnosis Via [facility] [address] [place] [id number] Jun, Via [facility] [address] [place] [id number] March, [facility] [place] [address] [facility] [id number], [place] [address] Feb, Other chronic pain G89.29 Via [facility] [address] [place] [id number] Feb, Neurogenic bladder N31.9 and Suprapubic catheter Z93.59 [facility] [place] [address] [facility] [id number] [place] [address] Jan, Anxiety F41.9 [facility] [place] [address] [place] [address] Dec, Anxiety F41.9 [facility] [place] [id number] [place] [address] Dec, Other chronic pain G89.29 and Anxiety F41.9 [facility] [place] [id number] [place] [address] Dec, Via [facility] [address] [place] [id number] Dec, Neurogenic bladder N31.9 and Suprapubic catheter Z93.59 [place] [id number] [place] [address] Nov, Other chronic pain G89.29 and Anxiety F41.9 [facility] [place] [id number] [place] [address] Nov, Via [facility] [address] [place] [id number] Nov, Suprapubic catheter Z93.59 [facility] [place] [id number] [place] [address] Oct, Other chronic pain G89.29 and Anxiety F41.9 [facility] [place] [id number] [place] [address] Oct, [facility] [place] [id number] [place] [address] Oct, Suprapubic catheter Z93.59 [facility] [place] [id number] [place] [address] Oct, Via [employer] [facility] [address] [place] [id number] Oct, [facility] [place] [address] [place] [address] Oct, Anxiety F41.9 [facility] [place] [address] [id number], [place] [address] 04 Oct, 2018 Anxiety F41.9 Via [employer] [address] [place] [id number] Oct, Other chronic pain G89.29 [facility] [place] [address] [id number], [place] [address] 14 Sep, 2018 Other chronic pain G89.29 Via [employer] [facility] [address] [place] [id number] Sep, Suprapubic catheter Z93.59 and Cervicalgia M54.2 [facility] [place] [id number] [place] [address] Sep, [facility] [place] [id number] [place] [address] Sep, [facility] [place] [address] [facility] [id number] [place] [address] Sep, Via [facility] [address] [place] [id number] Aug, Cystitis N30.90 [facility] [place] [id number] [place] [address] Aug, [facility] [place] [id number] [place] [address] Aug, Other chronic pain G89.29 [facility] [place] [id number] [place] [address] Aug, Via [employer] [address] [place] [id number] Aug, Encounter for suprapubic catheter care Z43.5 [facility] [place] [id number] [place] [address] Jul, Via [employer] [address] [place] [id number] Jul, [facility] [place] [address] [id number] [place] [address] Jul, Other chronic pain G89.29 [facility] [place] [address] [id number] [address] Jul, [facility] [place] [address] [facility] [id number], [place] [address] Jul, Via [facility] [address] [place] [id number] Jun, 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 [facility] [place] [id number] [place] [address] Jun, Other chronic pain G89.29 [place] [id number] [place] [address] Jun, Via [facility] [address] [place] [id number] May, Anxiety F41.9 ; Type 2 diabetes mellitus without complication, without long-term current use of insulin E11.9 ; Hypertension I10 ; Low back pain M54.5 ; Paroxysmal atrial fibrillation I48.0 and 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 [place] [address] [id number] [address] May, Other chronic pain G89.29 Via [facility] [address] [place] [id number] May, Low back pain M54.5 [place] [address] [id number] [address] May, [place] [id number] [place] [address] Apr, Other chronic pain G89.29 [place] [address] [address] Apr, [place] [address] [place] [address] Apr, Via [facility] [address] [place] [id number] Apr, Closed compression fracture of L3 lumbar vertebra with routine healing, subsequent encounter S32.030D Via [facility] [address] [place] [id number] 14 Apr, 2018 Low back pain M54.5 Via [facility] [address] [place] [id number] 12 Apr, 2018 Coccydynia M53.3 [facility] [place] [address] [facility] [id number], [place] [address] March, [facility] [place] [address] [facility] [id number] [place] [address] March, Other chronic pain G89.29 [facility] [place] [id number] [place] [address] March, [facility] [place] [address] [facility] [id number] [place] [address] March, [facility] [place] [id number] [place] [address] Feb, [facility] [place] [address] [facility] [id number] [place] [address] Feb, Other chronic pain G89.29 Via [facility] [address] [place] [id number] Feb, Other chronic pain G89.29 and Anxiety F41.9 [facility] [place] [address] [id number] [address] Feb, [facility] [place] [address] [facility] [id number], [place] [address] Jan, [facility] [place] [address] [facility] [id number], [place] [address] Jan, [facility] [place] [address] [facility] [id number] [place] [address] 13 Jan, 2018 [facility] [place] [address] [facility] [id number], [place] [address] 02 Jan, 2018 [facility] [place] [address] 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 [address] [id number] [id number] Nov, Anxiety F41.9 [facility] [place] [address] [facility] [id number], [place] [address] Nov, [facility] [address] [id number] [id number] Nov, Anxiety F41.9 Via [facility] [address] [place] [id number] Nov, Status post surgery Z98.890 ; Confused R41.0 ; Anxiety F41.9 and Other chronic pain G89.29 [facility] [address] [id number], [place] [id number] Nov, Other chronic pain G89.29 [facility] [place] [address] [facility] [id number], [place] [address] Oct, [facility] [address] [id number][place] [id number] Oct, Other chronic pain G89.29 [facility] [place] [address] [facility] [id number], [place] [address] Oct, Anxiety F41.9 [facility] [address] [id number], [place] [id number] Sep, Other chronic pain G89.29 [facility] [address] [id number], [place] [id number] Sep, Via [facility] [address] [place] [id number] Aug, Dysuria R30.0 and Anxiety F41.9 [facility] [place] [id number] [place] [address] Aug, [facility] [id number] [place] [id number] Aug, Other chronic pain G89.29 [facility] [place] [id number] [place] [address] Jul, Other chronic pain G89.29 [facility] [id number] [place] [id number] Jun, [facility] [id number] [place] [id number] Jun, Other chronic pain G89.29 [facility] [place] [id number] [place] [address] Jun, [facility] [place] [id number] [place] [address] May, Other chronic pain G89.29 [facility] [place] [id number] [place] [address] Apr, Other chronic pain G89.29 Via [facility] [address] [place] [id number] Apr, Reactive depression F32.9 and Pharyngeal dysphagia R13.13 [facility] [place] [address] [place] [address] Apr, Urinary tract infection without hematuria, site unspecified N39.0 [facility] [place] [address] [place] [address] March, Other chronic pain G89.29 [facility] [place] [address] [place] [address] Feb, Other chronic pain G89.29 [facility] [place] [id number] [place] [address] Feb, [facility] [id number], [place] [id number] Feb, Via [facility] [address] [place] [id number] Feb, Dysuria R30.0 and Ventral hernia without obstruction or gangrene K43.9 [facility] [place] [address] [facility] [id number] [place] [address] Jan, Other chronic pain G89.29 [facility] [id number] [place] [address] [id number] Dec, Other chronic pain G89.29 [facility] [place] [address] [place] [address] Nov, Other chronic pain G89.29 Via [facility] [address] [place] [id number] Nov, Lymphadenitis I88.9 [facility] [place] [address] [place] [address] Nov, Other chronic pain G89.29 [facility] [place] [id number] [place] [address] Nov, [facility] [id number] [place] [id number] Nov, Other chronic pain G89.29 Via [facility] [address] [place] [id number] Oct, Low back pain M54.5 ; Hypertension I10 and Type 2 diabetes mellitus without complication, without long-term current use of insulin E11.9 [facility] [place] [address] [facility] [id number], [place] [address] Oct, [facility] [place] [id number] [place] [address] Oct, [facility] [place] [address] [id number], [place] [address] Oct, [facility] [place] [address], [place] [address] Oct, [facility] [place] [address] [facility] [id number], [place] [address] Sep, [facility] [place] [address] [facility] [id number], [place] [address] Sep, [facility] [place] [address], [place] [address] Aug, Other chronic pain G89.29 [facility] [place] [address] [facility] [id number], [place] [address] Jul, [facility] [place] [address] [facility] [id number] [place] [address] Jul, [facility] [place] [address], [place] [address] Jul, [facility] [place] [address]100[place], [place] [address] Jun, [facility] [place] [address] [id number], [place] [address] Jun, Via [facility] [address] [place] [id number] Jun, Low back pain M54.5 ; Other chronic pain G89.29 and Coronary artery disease I25.10 [facility] [place] [address] [id number], [place] [address] Jun, [facility] [place] [address] [id number], [place] [address] May, [facility] [place] [address] [id number], [place] [address] May, [facility] [place] [address] [id number], [place] [address] May, Other chronic pain G89.29 [facility] [place] [address] [id number], [place] [address] May, [facility] [place] [address], [place] [address] Apr, [facility] [place] [address] [id number], [place] [address] Apr, Acute cystitis without hematuria N30.00 [facility] [place] [address], [place] [address] 16 Apr, 2016 Acute cystitis without hematuria N30.00 ; Coronary artery disease I25.10 ; Low back pain M54.5 and Other chronic pain G89.29 [facility] [place] [address], [place] [address] Apr, Other chronic pain G89.29 [facility] [place] [address] [id number], [place] [address] March, Other chronic pain G89.29 [facility] [place] [id number] [place] [address] Feb, [facility] [place] [address] [place] [address] Feb, Arthritis M19.90 [facility] [place] [id number] [place] [address] Feb, [facility] [place] [address], [place] [address] Jan, [facility] [place] [address]005[address]100[place], [place] [address] Jan, [facility] [place] [address]100[place], [place] [address] Jan, Other chronic pain G89.29 [facility] [place] [address] [place] [address] Jan, Hypertension I10 ; Coronary artery disease I25.10 and Insomnia G47.00 [facility] [place] [id number], [place] [address] Jan, [facility] [place] [address] [facility] [id number], [place] [address] Dec, Right hip pain M25.551 [facility] [place] [address] [facility] [id number], [place] [address] Dec, [facility] [place] [address] [facility] [id number], [place] [address] Dec, [facility] [place] [address] [facility] [id number] [place] [address] Dec, [facility] [place] [address] [facility] [id number] [place] [address] Dec, Other chronic pain G89.29 [facility] [place] [id number] [address] Dec, [facility] [place] [id number] [place] [id number] Nov, [facility] [place] [id number] [address] Nov, Other chronic pain G89.29 [facility] [place] [id number] [address] Nov, Right hip pain M25.551 and Coronary artery disease I25.10 [facility] [place] [address] [address] Nov, Other chronic pain G89.29 [facility] [place] [id number] [address] Oct, [facility] [place] [id number] [address] Oct, [facility] [place] [id number], [place] [address] Sep, [facility] [place] [id number] [place] [address] Sep, [facility] [place] [address] [facility] [id number], [place] [address] Aug, [facility] [place] [address] [id number] [place] [address] Aug, Hypertension I10 ; Coronary artery disease I25.10 and Arthritis M19.90 [facility] [place] [id number] [address] Jun, [facility] [place] [id number] [place] [address] Jun, Essential hypertension, benign 401.1 ; Other chronic pain 338.29 and Chronic airway obstruction, not elsewhere classified 496 [facility] [place] [address], [place] [address] Jun, [facility] [place] [address] [address] Jun, [facility] [place] [address] [address] Jun, [facility] [place] [address] [address] May, [facility] [place] [address] [address] May, [facility] [place] [address] [address] Apr, [facility] [place] [id number] [address] Apr, [facility] [place] [id number] [place] [address] Apr, [facility] [place] [id number] [address] March, [facility] [place] [id number] [place] [address] March, [facility] [place] [id number] [place] [address] March, [facility] [place] [address] [id number] [place] [address] March, [facility] [address] [id number] [place] [address] March, Sialadenitis 527.2 [facility] [address] [id number] [place] [address] Feb, [facility] [address] [id number] [place] [address] Feb, [facility] [address] [id number] [place] [address] Feb, [facility] [place] [address] [id number] [place] [address] Feb, [facility] [place] [address] [facility] [id number] [place] [address] Feb, [facility] [place] [address] [id number] [place] [address] Jan, [facility] [place] [address] [id number] [place] [address] Jan, [facility] [place] [address] [facility] [id number] [place] [address] Jan, [facility] [place] [address] [facility] [id number] [place] [address] Jan, [facility] [address] [id number] [place] [address] Jan, [facility] [address] [id number] [place] [address] Jan, [facility] [address] [id number] [place] [address] Dec, [facility] [address] [id number] [place] [address] Dec, [facility] [place] [facility] [address] [id number] [place] [address] Dec, [facility] [place] [facility] [address] [id number] [place] [address] Dec, [facility] [place] [facility] [address] [id number] [place] [address] Dec, [facility] [place] [facility] [address] [id number] [place] [address] Dec, [facility] [place] [facility] [address] [id number] [place] [address] Nov, [facility] [place] [facility] [address] [id number] [place] [address] Nov, [facility] [place] [facility] [address] [id number] [place] [address] Nov, [facility] [place] [facility] [address] [id number] [place] [address] Nov, [facility] [place] [facility] [address] [id number] [place] [address] Nov, [facility] [place] [facility] [address] [id number] [place] [address] Nov, [facility] [place] [facility] [address] [id number], [place] [address] Nov, [facility] [place] [facility] [address] [id number], [place] [address] Nov, [facility] [place] [facility] [address] [id number], [place] [address] Nov, [facility] [place] [facility] [address] [id number], [place] [address] Nov, [facility] [place] [facility] [address] [id number] [place] [address] Nov, [facility] [place] [facility] [address] [id number] [place] [address] Nov, [facility] [place] [facility] [address] [id number] [place] [address] Nov, [facility] [place] [facility] [address] [id number] [place] [address] Nov, [facility] [place] [facility] [address] [id number] [place] [address] Oct, [facility] [place] [facility] [address] [id number] [place] [address] Oct, [facility] [place] [facility] [address] [id number] [place] [address] Oct, [facility] [place] [facility] [address] [id number] [place] [address] Oct, [facility] [place] [facility] [address] [id number] [place] [address] Oct, [facility] [place] [facility] [address] [id number] [place] [address] Oct, [facility] [place] [facility] [address] [id number] [place] [address] Oct, [facility] [place] [facility] [address] [id number] [place] [address] Oct, [facility] [place] [facility] [address] [id number] [place] [address] Oct, [facility] [place] [facility] [address] [id number] [place] [address] Sep, [facility] [place] [facility] [address] [id number] [place] [address] Sep, [facility] [place] [facility] [address] [id number] [place] [address] Sep, [facility] [place] [facility] [address] [id number] [place] [address] Sep, [facility] [place] [facility] [address] [id number] [place] [address] Sep, [facility] [place] [facility] [address] [id number] [place] [address] Sep, [facility] [place] [facility] [address] [id number] [place] [address] Sep, [facility] [place] [facility] [address] [id number] [place] [address] Sep, [facility] [place] [facility] [address] [id number] [place] [address] Sep, [facility] [place] [facility] [address] [id number] [place] [address] Sep, [facility] [place] [facility] [address] [id number] [place] [address] Sep, [facility] [place] [facility] [address] [id number] [place] [address] Sep, [facility] [place] [facility] [address] [id number] [place] [address] Aug, [facility] [place] [facility] [address] [id number], [place] [address] Aug, [facility] [place] [facility] [address] [id number], [place] [address] Aug, [facility] [place] [facility] [address] [id number], [place] [address] Aug, [facility] [place] [facility] [address] [id number] [place] [address] Aug, [facility] [place] [facility] [address] [id number], [place] [address] Aug, [facility] [place] [facility] [address] [id number] [place] [address] Aug, [facility] [place] [facility] [address] [id number] [place] [address] 17 Aug, 2014 [facility] [place] [facility] [address] [id number] [place] [address] 30 Jul, 2013 [facility] [place] [facility] [address] [id number] [place] [address] 30 Jul, 2013 [facility] [place] [facility] [address] [id number] [place] [address] 30 Jul, 2013 [facility] [place] [facility] [address] [id number] [place] [address] 30 Jul, 2013 [facility] [place] [facility] [address] [id number] [place] [address] 25 Jul, 2013 [facility] [place] [facility] [address] [id number] [place] [address] 25 Jul, 2013 [facility] [place] [facility] [address] [id number] [place] [address] 15 Jul, 2013 [facility] [place] [facility] [address] [id number] [place] [address] 15 Jul, 2013 [facility] [place] [facility] [address] [id number] [place] [address] 11 Jul, 2013 [facility] [place] [facility] [address] [id number] [place] [address] 11 Jul, 2013 [facility] [place] [facility] [address] [id number] [place] [address] Jun, [facility] [place] [facility] [address] [id number] [place] [address] Jun, [facility] [place] [facility] [address] [id number] [place] [address] Jun, [facility] [place] [facility] [address] [id number] [place] [address] Jun, [facility] [place] [facility] [address] [id number] [place] [address] Jun, [facility] [place] [facility] [address] [id number] [place] [address] Jun, [facility] [place] [facility] [address] [id number] [place] [address] Jun, [facility] [place] [facility] [address] [id number] [place] [address] Jun, [facility] [place] [facility] [address] [id number] [place] [address] Jun, [facility] [place] [facility] [address] [id number] [place] [address] Jun, [facility] [place] [facility] [address] [id number] [place] [address] Jun, [facility] [place] [facility] [address] [id number] [place] [address] Jun, [facility] [place] [facility] [address] [id number] [place] [address] Jun, [facility] [place] [facility] [address] [id number] [place] [address] Jun, [facility] [place] [facility] [address] [id number] [place] [address] Jun, [facility] [place] [facility] [address] [id number] [place] [address] Jun, [facility] [place] [facility] [address] [id number] [place] [address] Jun, [facility] [place] [facility] [address] [id number] [place] [address] Jun, [facility] [place] [facility] [address] [id number] [place] [address] Jun, [facility] [place] [facility] [address] [id number] [place] [address] Jun, [facility] [place] [facility] [address] [id number] [place] [address] Jun, [facility] [place] [facility] [address] [id number] [place] [address] Jun, [facility] [place] [facility] [address] [id number] [place] [address] May, [facility] [place] [facility] [address] [id number] [place] [address] May, [facility] [place] [facility] [address] [id number] [place] [address] May, [facility] [place] [facility] [address] [id number] [place] [address] May, [facility] [place] [facility] [address] [id number] [place] [address] May, [facility] [place] [facility] [address] [id number] [place] [address] May, [facility] [place] [facility] [address] [id number] [place] [address] May, [facility] [place] [facility] [address] [id number] [place] [address] May, [facility] [place] [facility] [address] [id number] [place] [address] May, [facility] [place] [facility] [address] [id number] [place] [address] May, [facility] [place] [facility] [address] [id number] [place] [address] May, [facility] [place] [facility] [address] [id number] [place] [address] May, [facility] [place] [facility] [address] [id number] [place] [address] May, [facility] [place] [facility] [address] [id number] [place] [address] Apr, [facility] [place] [facility] [address] [id number] [place] [address] Apr, [facility] [place] [facility] [address] [id number] [place] [address] Apr, [facility] [place] [facility] [address] [id number] [place] [address] Apr, [facility] [place] [facility] [address] [id number] [place] [address] Apr, [facility] [place] [facility] [address] [id number] [place] [address] Apr, [facility] [place] [facility] [address] [id number] [place] [address] Apr, [facility] [place] [facility] [address] [id number] [place] [address] Apr, [facility] [place] [facility] [address] [id number] [place] [address] Apr, [facility] [place] [facility] [address] [id number] [place] [address] March, [facility] [place] [facility] [address] [id number] [place] [address] March, [facility] [place] [facility] [address] [id number] [place] [address] March, [facility] [place] [facility] [address] [id number] [place] [address] March, [facility] [place] [facility] [address] [id number] [place] [address] March, [facility] [place] [facility] [address] [id number] [place] [address] March, [facility] [place] [facility] [address] [id number] [place] [address] March, [facility] [place] [facility] [address] [id number] [place] [address] March, [facility] [address] [id number] [place] [address] March, [facility] [place] [facility] [address] [id number] [place] [address] March, [facility] [place] [facility] [address] [id number] [place] [address] March, [facility] [place] [facility] [address] [id number] [place] [address] March, [facility] [place] [facility] [address] [id number] [place] [address] March, [facility] [place] [facility] [address] [id number] [place] [address] March, [facility] [place] [facility] [address] [id number] [place] [address] March, [facility] [place] [facility] [address] [id number] [place] [address] March, [facility] [place] [facility] [address] [id number] [place] [address] March, [facility] [place] [facility] [address] [id number] [place] [address] March, [facility] [place] [facility] [address] [id number] [place] [address] March, [facility] [place] [facility] [address] [id number] [place] [address] March, [facility] [place] [facility] [address] [id number] [place] [address] Feb, [facility] [place] [facility] [address] [id number] [place] [address] Feb, [facility] [place] [facility] [address] [id number] [place] [address] Feb, [facility] [place] [facility] [address] [id number] [place] [address] Feb, [facility] [place] [facility] [address] [id number] [place] [address] Feb, [facility] [place] [facility] [address] [id number] [place] [address] Feb, [facility] [place] [facility] [address] [id number] [place] [address] Feb, [facility] [place] [facility] [address] [id number] [place] [address] Feb, [facility] [place] [facility] [address] [id number] [place] [address] Jan, [facility] [place] [facility] [address] [id number] [place] [address] Jan, [facility] [place] [facility] [address] [id number] [place] [address] Jan, [facility] [place] [facility] [address] [id number] [place] [address] Jan, [facility] [place] [facility] [address] [id number] [place] [address] Jan, [facility] [place] [facility] [address] [id number] [place] [address] Jan, [facility] [place] [facility] [address] [id number] [place] [address] Jan, [facility] [place] [facility] [address] [id number] [place] [address] Jan, [facility] [place] [facility] [address] [id number] [place] [address] Jan, [facility] [place] [facility] [address] [id number] [place] [address] Jan, [facility] [place] [facility] [address] [id number] [place] [address] Dec, [facility] [place] [facility] [address] [id number] [place] [address] Dec, [facility] [place] [facility] [address] [id number] [place] [address] Dec, [facility] [place] [facility] [address] [id number] [place] [address] Dec, [facility] [place] [facility] [address] [id number] [place] [address] Dec, [facility] [place] [facility] [address] [id number] [place] [address] Dec, [facility] [place] [facility] [address] [id number] [place] [address] Dec, [facility] [place] [facility] [address] [id number] [place] [address] Dec, [facility] [place] [facility] [address] [id number] [place] [address] Nov, [facility] [place] [facility] [address] [id number] [place] [address] Nov, [facility] [place] [facility] [address] [id number] [place] [address] Nov, [facility] [place] [facility] [address] [id number] [place] [address] Nov, [facility] [place] [facility] [address] [id number] [place] [address] Nov, [facility] [place] [facility] [address] [id number] [place] [address] Nov, [facility] [place] [facility] [address] [id number] [place] [address] Nov, [facility] [place] [facility] [address] [id number] [place] [address] Nov, [facility] [place] [facility] [address] [id number], [place] [address] Nov, [facility] [address] [id number] [place] [address] Nov, [facility] [place] [facility] [address] [id number] [place] [address] Nov, [facility] [address] [id number] [place] [address] Nov, [facility] [place] [facility] [address] [id number] [place] [address] Nov, [facility] [address] [id number] [place] [address] Oct, [facility] [place] [facility] [address] [id number] [place] [address] Oct, [facility] [address] [id number] [place] [address] Oct, [facility] [place] [facility] [address] [id number] [place] [address] Oct, [facility] [address] [id number] [place] [address] Oct, [facility] [place] [facility] [address] [id number] [place] [address] Oct, [facility] [address] [id number] [place] [address] 18 Oct, 2013 [facility] [place] [facility] [address] [id number] [place] [address] 18 Oct, 2013 [facility] [place] [facility] [address] [id number] [place] [address] 17 Oct, 2013 [facility] [place] [facility] [address] [id number] [place] [address] 17 Oct, 2013 [facility] [place] [facility] [address] [id number] [place] [address] Oct, [facility] [place] [facility] [address] [id number] [place] [address] Oct, [facility] [address] [id number] [place] [address] Oct, [facility] [place] [facility] [address] [id number] [place] [address] Oct, [facility] [place] [facility] [address] [id number] [place] [address] Sep, [facility] [place] [facility] [address] [id number] [place] [address] Sep, [facility] [place] [facility] [address] [id number] [place] [address] Sep, [facility] [place] [facility] [address] [id number] [place] [address] Sep, [facility] [place] [facility] [address] [id number] [place] [address] Sep, [facility] [place] [facility] [address] [id number] [place] [address] Sep, [facility] [place] [facility] [address] [id number] [place] [address] Sep, [facility] [place] [facility] [address] [id number] [place] [address] Sep, [facility] [place] [facility] [address] [id number] [place] [address] Sep, [facility] [place] [facility] [address] [id number] [place] [address] Sep, [facility] [place] [facility] [address] [id number] [place] [address] Aug, [facility] [place] [facility] [address] [id number] [place] [address] Aug, [facility] [place] [facility] [address] [id number] [place] [address] Aug, [facility] [place] [facility] [address] [id number] [place] [address] 24 Aug, 2013 [facility] [place] [facility] [address] [id number] [place] [address] Aug, [facility] [place] [facility] [address] [id number] [place] [address] Aug, [facility] [place] [facility] [address] [id number] [place] [address] Aug, [facility] [place] [facility] [address] [id number] [place] [address] Aug, [facility] [place] [facility] [address] [id number], [place] [address] Aug, [facility] [place] [facility] [address] [id number] [place] [address] Aug, [facility] [place] [facility] [address] [id number], [place] [address] 18 Aug, 2013 [facility] [place] [facility] [address] [id number] [place] [address] 18 Aug, 2013 [facility] [place] [facility] [address] [id number], [place] [address] 18 Aug, 2013 [facility] [place] [facility] [address] [id number], [place] [address] 18 Aug, 2013 [facility] [place] [facility] [address] [id number], [place] [address] 17 Aug, 2013 [facility] [place] [facility] [address] [id number], [place] [address] 14 Aug, 2013 [facility] [place] [facility] [address] [id number], [place] [address] 14 Aug, 2013 [facility] [place] [facility] [address] [id number], [place] [address] Aug, [facility] [place] [facility] [address] [id number] [place] [address] 20 Jul, 2013 [facility] [place] [facility] [address] [id number] [place] [address] 19 Jul, 2013 [facility] [place] [facility] [address] [id number] [place] [address] 18 Jul, 2013 [facility] [place] [facility] [address] [id number] [place] [address] 11 Jul, 2013 [facility] [place] [facility] [address] [id number] [place] [address] 11 Jul, 2013 [facility] [place] [facility] [address] [id number] [place] [address] Jun, [facility] [place] [facility] [address] [id number] [place] [address] Jun, [facility] [place] [facility] [address] [id number] [place] [address] Jun, [facility] [place] [facility] [address] [id number] [place] [address] 15 Jun, 2013 [facility] [place] [facility] [address] [id number] [place] [address] Jun, [facility] [place] [facility] [address] [id number] [place] [address] Jun, [facility] [place] [facility] [address] [id number] [place] [address] Jun, [facility] [place] [facility] [address] [id number] [place] [address] Jun, [facility] [place] [facility] [address] [id number] [place] [address] Jun, [facility] [place] [facility] [address] [id number] [place] [address] Jun, [facility] [place] [facility] [address] [id number] [place] [address] May, [facility] [place] [facility] [address] [id number] [place] [address] May, [facility] [place] [facility] [address] [id number] [place] [address] May, [facility] [place] [facility] [address] [id number] [place] [address] May, [facility] [place] [facility] [address] [id number] [place] [address] May, [facility] [place] [facility] [address] [id number] [place] [address] 16 May, 2013 [facility] [place] [facility] [address] [id number] [place] [address] May, [facility] [place] [facility] [address] [id number] [place] [address] May, [facility] [place] [facility] [address] [id number] [place] [address] May, [facility] [place] [facility] [address] [id number] [place] [address] Apr, [facility] [place] [facility] [address] [id number] [place] [address] Apr, [facility] [place] [facility] [address] [id number] [place] [address] Apr, [facility] [place] [facility] [address] [id number] [place] [address] Apr, [facility] [place] [facility] [address] [id number] [place] [address] Apr, [facility] [place] [facility] [address] [id number] [place] [address] Apr, [facility] [place] [facility] [address] [id number] [place] [address] Apr, [facility] [place] [facility] [address] [id number] [place] [address] March, [facility] [place] [facility] [address] [id number] [place] [address] Feb, [facility] [place] [facility] [address] [id number] [place] [address] Feb, [facility] [place] [facility] [address] [id number] [place] [address] Feb, [facility] [place] [facility] [address] [id number] [place] [address] Jan, [facility] [place] [facility] [address] [id number] [place] [address] Jan, [facility] [place] [facility] [address] [id number] [place] [address] Jan, [facility] [place] [facility] [address] [id number] [place] [address] Jan, [facility] [place] [facility] [address] [id number] [place] [address] Jan, [facility] [place] [facility] [address] [id number] [place] [address] Jan, [facility] [place] [facility] [address] [id number] [place] [address] Jan, [facility] [place] [facility] [address] [id number] [place] [address] Jan, [facility] [place] [facility] [address] [id number] [place] [address] 28 Dec, 2012 [facility] [place] [facility] [address] [id number] [place] [address] Dec, [facility] [place] [facility] [address] [id number] [place] [address] Dec, [facility] [place] [facility] [address] [id number] [place] [address] Dec, [facility] [place] [facility] [address] [id number] [place] [address] 07 Dec, 2012 [facility] [address] [id number] [place] [address] 06 Dec, 2012 [facility] [place] [facility] [address] [id number] [place] [address] 05 Dec, 2012 [facility] [place] [facility] [address] [id number] [place] [address] Nov, [facility] [place] [facility] [address] [id number] [place] [address] 24 Nov, 2012 [facility] [place] [facility] [address] [id number] [place] [address] 18 Nov, 2012 [facility] [address] [id number] [place] [address] 15 Nov, 2012 [facility] [address] [id number] [place] [address] Nov, [facility] [address] [id number] [place] [address] Nov, [facility] [address] [id number] [place] [address] Nov, [facility] [address] [id number] [place] [address] Oct, [facility] [address] [id number] [place] [address] Oct, [facility] [place] [facility] [address] [id number] [place] [address] Oct, [facility] [place] [facility] [address] [id number] [place] [address] Oct, [facility] [place] [facility] [address] [id number] [place] [address] 17 Oct, 2012 [facility] [place] [facility] [address] [id number] [place] [address] Oct, [facility] [place] [facility] [address] [id number] [place] [address] Oct, [facility] [place] [facility] [address] [id number] [place] [address] Oct, [facility] [place] [facility] [address] [facility] [id number] [place] [address] Oct, [facility] [place] [facility] [address] [id number] [place] [address] Oct, [facility] [place] [facility] [address] [id number] [place] [address] Oct, [facility] [place] [facility] [address] [id number] [place] [address] Oct, [facility] [place] [facility] [address] [facility] [id number] [place] [address] Sep, [facility] [place] [facility] [address] [id number], [place] [address] Sep, [facility] [place] [facility] [address] [id number], [place] [address] Sep, [facility] [place] [facility] [address] [facility] [id number], [place] [address] Sep, [facility] [place] [facility] [address] [id number], [place] [address] Sep, [facility] [place] [facility] [address] [id number], [place] [address] Sep, [facility] [place] [facility] [address] [id number], [place] [address] Sep, [facility] [place] [facility] [address] [facility] [id number], [place] [address] Sep, [facility] [place] [facility] [address] [facility] [id number], [place] [address] Sep, [facility] [place] [facility] [address] [id number] [place] [address] Sep, [facility] [place] [facility] [address] [id number] [place] [address] Sep, [facility] [place] [facility] [address] [id number] [place] [address] Aug, [facility] [place] [facility] [address] [id number] [place] [address] Aug, [facility] [place] [facility] [address] [id number] [place] [address] Aug, [facility] [place] [facility] [address] [id number] [place] [address] Aug, [facility] [place] [facility] [address] [id number] [place] [address] Aug, [facility] [place] [facility] [address] [id number] [place] [address] Aug, [facility] [place] [facility] [address] [id number] [place] [address] Aug, [facility] [place] [facility] [address] [id number] [place] [address] Aug, [facility] [place] [facility] [address] [facility] [id number] [place] [address] Aug, [facility] [place] [facility] [address] [id number] [place] [address] Aug, [facility] [place] [facility] [address] [id number] [place] [address] 22 Jul, 2012 [facility] [place] [facility] [address] [id number] [place] [address] 20 Jul, 2012 [facility] [place] [facility] [address] [id number] [place] [address] 10 Jul, 2012 [facility] [place] [facility] [address] [id number] [place] [address] Jul, [facility] [place] [facility] [address] [id number] [place] [address] Jun, [facility] [place] [facility] [address] [id number] [place] [address] Jun, [facility] [place] [facility] [address] [id number] [place] [address] Jun, [facility] [place] [facility] [address] [id number] [place] [address] Jun, [facility] [place] [facility] [address] [id number] [place] [address] Jun, [facility] [place] [facility] [address] [id number] [place] [address] Jun, [facility] [place] [facility] [address] [id number] [place] [address] Jun, [facility] [place] [facility] [address] [id number] [place] [address] May, [facility] [place] [facility] [address] [id number] [place] [address] May, [facility] [place] [facility] [address] [id number] [place] [address] May, [facility] [place] [facility] [address] [id number] [place] [address] May, [facility] [place] [facility] [address] [id number] [place] [address] May, [facility] [place] [facility] [address] [id number] [place] [address] Apr, [facility] [place] [facility] [address] [id number] [place] [address] Apr, [facility] [place] [facility] [address] [id number] [place] [address] Apr, [facility] [place] [facility] [address] [id number] [place] [address] Apr, [facility] [address] [id number] [place] [address] Apr, [facility] [place] [facility] [address] [id number] [place] [address] March, [facility] [place] [facility] [address] [id number] [place] [address] March, [facility] [place] [facility] [address] [id number] [place] [address] March, [facility] [place] [facility] [address] [id number] [place] [address] March, [facility] [place] [facility] [address] [id number] [place] [address] March, [facility] [address] [id number] [place] [address] March, [facility] [place] [facility] [address] [id number] [place] [address] March, [facility] [place] [facility] [address] [id number] [place] [address] March, [facility] [place] [facility] [address] [id number] [place] [address] March, [facility] [place] [facility] [address] [id number] [place] [address] March, [facility] [place] [facility] [address] [id number] [place] [address] Feb, [facility] [place] [facility] [address] [id number] [place] [address] Feb, [facility] [place] [facility] [address] [id number] [place] [address] Feb, [facility] [place] [facility] [address] [id number] [place] [address] Feb, [facility] [place] [facility] [address] [id number] [place] [address] 17 Feb, 2012 [facility] [address] [id number] [place] [address] 17 Feb, 2012 [facility] [place] [facility] [address] [id number] [place] [address] Feb, [facility] [address] [id number] [place] [address] Feb, [facility] [address] [id number] [place] [address] Feb, [facility] [address] [id number] [place] [address] 08 Jan, 2012 [facility] [address] [id number] [place] [address] Jan, [facility] [address] [id number] [place] [address] Jan, [facility] [address] [id number] [place] [address] Jan, [facility] [address] [id number] [place] [address] Dec, [facility] [address] [id number] [place] [address] Dec, [facility] [address] [id number] [place] [address] Nov, [facility] [address] [id number] [place] [address] Nov, [facility] [place] [facility] [address] [id number] [place] [address] Nov, [facility] [place] [facility] [address] [id number] [place] [address] Nov, [facility] [place] [facility] [address] [id number] [place] [address] Nov, [facility] [place] [address] [facility] [id number], [place] [address] Oct, [facility] [place] [address] [facility] [id number], [place] [address] Oct, [facility] [place] [id number], [place] [address] Oct, [facility] [place] [id number], [place] [address] Oct, [facility] [place] [address] [facility] [id number], [place] [address] Oct, [facility] [place] [id number] [place] [address] Oct, [facility] [place] [id number], [place] [address] Oct, [facility] [place] [address], [place] [address] Oct, [facility] [place] [address] [id number], [place] [address] Sep, IMMUNIZATIONS No Known Immunizations SOCIAL HISTORY Never Assessed REASON FOR VISIT [facility] PLAN OF CARE VITAL SIGNS MEDICATIONS Unknown Medications RESULTS No Results PROCEDURES No Known procedures INSTRUCTIONS MEDICATIONS ADMINISTERED No Known Medications MEDICAL (GENERAL) HISTORY Type Description Date 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
--- OUTSIDE RECORDS SUMMARY | 2019-04-16 15:35 | XMS REPORT ---
Author Author Migration, Doctor Organization [facility] Address Unknown Phone Unavailable Care Team Providers Care Potato Loader Name Role Phone Migration, Doctor Unavailable Unavailable PROBLEMS Type Condition ICD9-CM Code JYE61-UF Code Onset Dates Condition Status SNOMED Code Problem Coronary artery disease I25.10 Active 81674627 Problem Hypertension I10 Active 56131359 Problem Other chronic pain G89.29 Active 97303148 Problem Hyperlipidemia E78.5 Active 39284518 Problem Type 2 diabetes mellitus without complication, without long-term current use of insulin E11.9 Active 981504084 Problem Low back pain M54.5 Active 982024328 Problem Pharyngeal dysphagia R13.13 Active [id number] Problem Anxiety F41.9 Active 98303043 Problem Peripheral vascular disease I73.9 Active 789121868 Problem Suprapubic catheter Z93.59 Active 866923910 Problem Reactive depression F32.9 Active 36353991 Problem Neurogenic bladder N31.9 Active 780887546 Problem Ventral hernia without obstruction or gangrene K43.9 Active 257006625 Problem Insomnia G47.00 Active 829548725 Problem Paroxysmal atrial fibrillation I48.0 Active 193608322 Problem 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 Active 56680119 Problem Encounter for suprapubic catheter care Z43.5 Active [id number] ALLERGIES No Information ENCOUNTERS Encounter Location Date Diagnosis Via [facility] [address] [place] [id number] Jun, [facility] [address] [place] [id number] March, [facility] [address] [facility] [id number] [address] Feb, Other chronic pain G89.29 [facility] [address] [place] [id number] Feb, Neurogenic bladder N31.9 and Suprapubic catheter Z93.59 [facility] [address] [facility] [id number] [place] [address] Jan, Anxiety F41.9 [facility] [address] [place] [address] Dec, Anxiety F41.9 [facility] [id number] [place] [address] Dec, Other chronic pain G89.29 and Anxiety F41.9 [facility] [id number] [place] [address] Dec, Via [facility] [employer] [facility] [address] [place] [id number] Dec, Neurogenic bladder N31.9 and Suprapubic catheter Z93.59 [place] [id number] [place] [address] Nov, Other chronic pain G89.29 and Anxiety F41.9 [facility] [id number] [place] [address] Nov, Via [employer] [address] [place] [id number] Nov, Suprapubic catheter Z93.59 [facility] [id number] [place] [address] Oct, Other chronic pain G89.29 and Anxiety F41.9 [facility] [id number] [place] [address] Oct, [facility] [id number] [place] [address] Oct, Suprapubic catheter Z93.59 [facility] [id number] [place] [address] Oct, Via [email or web address] [facility] [address] [place] [id number] Oct, [facility] [address] [place] [address] Oct, Anxiety F41.9 [facility] [address] [id number] [address] 04 Oct, 2018 Anxiety F41.9 [facility] [email or web address] [facility] [address] [place] [id number] Oct, Other chronic pain G89.29 [facility] [address] [id number] [address] 14 Sep, 2018 Other chronic pain G89.29 [facility] [email or web address] [facility] [address] [place] [id number] Sep, Suprapubic catheter Z93.59 and Cervicalgia M54.2 [facility] [address] [id number] [place] [address] Sep, [facility] [address] [id number] [place] [address] Sep, [facility] [address] [facility] [id number] [place] [address] Sep, Via [facility] [employer] [address] [place] [id number] Aug, Cystitis N30.90 [facility] [address] [id number] [place] [address] Aug, [facility] [address] [id number] [place] [address] Aug, Other chronic pain G89.29 [facility] [address] [id number] [place] [address] Aug, Via [email or web address] [address] [place] [id number] Aug, Encounter for suprapubic catheter care Z43.5 [facility] [address] [id number] [place] [address] Jul, Via [email or web address] [address] [place] [id number] Jul, [facility] [address] [id number] [place] [address] Jul, Other chronic pain G89.29 [facility] [address] [id number] [address] Jul, [facility] [address] [facility] [id number] [address] Jul, Via [employer] [address] [place] [id number] Jun, 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 [facility] [id number] [place] [address] Jun, Other chronic pain G89.29 [facility] [id number] [place] [address] Jun, Via [employer] [address] [place] [id number] May, Anxiety F41.9 ; Type 2 diabetes mellitus without complication, without long-term current use of insulin E11.9 ; Hypertension I10 ; Low back pain M54.5 ; Paroxysmal atrial fibrillation I48.0 and 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 [facility] [address] [id number] [address] May, Other chronic pain G89.29 [facility] [employer] [address] [place] [id number] May, Low back pain M54.5 [place] [address] [id number] [address] May, [facility] [facility] [id number] [place] [address] Apr, Other chronic pain G89.29 [facility] [facility] [address]00565100[place] [address] Apr, [facility] [address] [place] [address] Apr, Via [employer] [address] [place] [id number] Apr, Closed compression fracture of L3 lumbar vertebra with routine healing, subsequent encounter S32.030D [facility] [employer] [address] [place] [id number] 14 Apr, 2018 Low back pain M54.5 [facility] [employer] [address] [place] [id number] 12 Apr, 2018 Coccydynia M53.3 [facility] [address] [facility] [id number] [place] [address] March, [facility] [address] [facility] [id number] [place] [address] March, Other chronic pain G89.29 [facility] [address] [id number] [place] [address] March, [facility] [address] [facility] [id number] [place] [address] March, [facility] [id number] [place] [address] Feb, [facility] [address] [facility] [id number] [place] [address] Feb, Other chronic pain G89.29 [facility] [employer] [address] [place] [id number] Feb, Other chronic pain G89.29 and Anxiety F41.9 [facility] [address] [id number] [address] Feb, [facility] [address] [facility] [id number] [address] Jan, [facility] [address] [facility] [id number] [address] Jan, [facility] [address] [facility] [id number] [place] [address] 13 Jan, 2018 [facility] [address] [facility] [id number] [place] [address] 02 Jan, 2018 [facility] [address] 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 [id number] [place] [address] Nov, [facility] [address] [id number] [place] [id number] Nov, Anxiety F41.9 [facility] [employer] [address] [place] [id number] Nov, Status post surgery Z98.890 ; Confused R41.0 ; Anxiety F41.9 and Other chronic pain G89.29 [facility] [address] [id number] [place] [id number] Nov, Other chronic pain G89.29 [facility] [address] [facility] [id number] [address] Oct, [facility] [address] [id number] [place] [id number] Oct, Other chronic pain G89.29 [facility] [address] [facility] [id number] [place] [address] Oct, Anxiety F41.9 [facility] [address] [id number] [place] [address] Sep, Other chronic pain G89.29 [facility] [address] [id number] [place] [address] Sep, Via [employer] [address] [place] [id number] Aug, Dysuria R30.0 and Anxiety F41.9 [facility] [address] [place] [address] Aug, [facility] [id number] [place] [id number] Aug, Other chronic pain G89.29 [facility] [id number] [place] [address] Jul, Other chronic pain G89.29 [facility] [id number] [place] [id number] Jun, [facility] [id number] [place] [id number] Jun, Other chronic pain G89.29 [facility] [id number] [place] [address] Jun, [facility] [id number] [place] [address] May, Other chronic pain G89.29 [facility] [id number] [place] [address] Apr, Other chronic pain G89.29 [facility] [employer] [address] [place] [id number] Apr, Reactive depression F32.9 and Pharyngeal dysphagia R13.13 [facility] [address] [place] [address] Apr, Urinary tract infection without hematuria, site unspecified N39.0 [facility] [address] [place] [address] March, Other chronic pain G89.29 [facility] [address] [place] [address] Feb, Other chronic pain G89.29 [facility] [id number] [place] [address] Feb, [facility] [id number] [address] Feb, [facility] [employer] [facility] [address] [place] [id number] Feb, Dysuria R30.0 and Ventral hernia without obstruction or gangrene K43.9 [facility] [address] [facility] [id number] [place] [address] Jan, Other chronic pain G89.29 [facility] [id number] [place] [id number] Dec, Other chronic pain G89.29 [facility] [address] [place] [address] Nov, Other chronic pain G89.29 [email or web address] [address] [place] [id number] Nov, Lymphadenitis I88.9 [facility] [address] [place] [address] Nov, Other chronic pain G89.29 [facility] [address] [place] [address] Nov, [facility] [id number] [place] [id number] Nov, Other chronic pain G89.29 [facility] [address] [place] [id number] Oct, Low back pain M54.5 ; Hypertension I10 and Type 2 diabetes mellitus without complication, without long-term current use of insulin E11.9 [facility] [address] [facility] [id number] [address] Oct, [facility] [id number] [place] [address] Oct, [facility] [address] [id number] [address] Oct, [facility] [address]00565100[place] [address] Oct, [facility] [address] [facility] [id number] [address] Sep, [facility] [address] [facility] [id number] [address] Sep, [facility] [address]00565100[place] [address] Aug, Other chronic pain G89.29 [facility] [address] [facility] [id number] [address] Jul, [facility] [address] [facility] [id number] [place] [address] Jul, [facility] [address]00565100[place] [address] Jul, [facility] [address]00565100[place] [address] Jun, [facility] [address] [id number] [address] Jun, [facility] [address] [place] [id number] Jun, Low back pain M54.5 ; Other chronic pain G89.29 and Coronary artery disease I25.10 [facility] [address] [id number] [address] Jun, [facility] [address] [id number] [address] May, [facility] [address] [id number] [address] May, [facility] [address] [id number] [address] May, Other chronic pain G89.29 [facility] [address] [id number] [address] May, [facility] [address]00565100[place] [address] Apr, [facility] [address] [id number] [address] Apr, Acute cystitis without hematuria N30.00 [facility] [address]00565100[place] [address] 16 Apr, 2016 Acute cystitis without hematuria N30.00 ; Coronary artery disease I25.10 ; Low back pain M54.5 and Other chronic pain G89.29 [facility] [address]00565100[place] [address] Apr, Other chronic pain G89.29 [facility] [address] [id number] [address] March, Other chronic pain G89.29 [facility] [id number] [place] [address] Feb, [facility] [address] [place] [address] Feb, Arthritis M19.90 [facility] [id number] [place] [address] Feb, [facility] [address]00565100[place] [address] Jan, [facility] [address]00565100[place] [address] Jan, [facility] [address]00565100[place] [address] Jan, Other chronic pain G89.29 [facility] [address]00565100[place] [address] Jan, Hypertension I10 ; Coronary artery disease I25.10 and Insomnia G47.00 [facility] [address]00565100[place] [address] Jan, [facility] [address] [facility] [id number] [place] [address] Dec, Right hip pain M25.551 [facility] [address] [facility] [id number] [place] [address] Dec, [facility] [address] [facility] [id number] [place] [address] Dec, [facility] [address] [facility] [id number] [place] [address] Dec, [facility] [address] [facility] [id number] [place] [address] Dec, Other chronic pain G89.29 [facility] [address]00565100[place] [address] Dec, [facility] [address] [place] [address] Nov, [facility] [address]00565100[place] [address] Nov, Other chronic pain G89.29 [facility] [address]00565100[place] [address] Nov, Right hip pain M25.551 and Coronary artery disease I25.10 [facility] [address]00565100[place] [address] Nov, Other chronic pain G89.29 [facility] [address]00565100[place] [address] Oct, [facility] [address]00565100[place] [address] Oct, [facility] [address]00565100[place] [address] Sep, [facility] [address]00565100[place] [address] Sep, [facility] [address] [facility] [id number] [place] [address] Aug, [facility] [id number] [place] [address] Aug, Hypertension I10 ; Coronary artery disease I25.10 and Arthritis M19.90 [facility] [address] 6493265100[place] [address] Jun, [facility] [id number] [place] [address] Jun, Essential hypertension, benign 401.1 ; Other chronic pain 338.29 and Chronic airway obstruction, not elsewhere classified 496 [facility] [address]00565100[place] [address] Jun, [facility] [address]00565100[place] [address] Jun, [facility] [address]00565100[place] [address] Jun, [facility] [address]00565100[place] [address] May, [facility] [address]00565100[place] [address] May, [facility] [address]00565100[place] [address] Apr, [facility] [address] [id number] [address] Apr, [facility] [address] [id number] [address] Apr, [facility] [address] [id number] [address] March, [facility] [address] [id number] [address] March, [facility] [address] [id number] [place] [address] March, [facility] [address] [id number] [place] [address] March, [facility] [address] [id number] [place] [address] March, Sialadenitis 527.2 [facility] [address] [id number] [place] [address] Feb, [facility] [address] [id number] [place] [address] Feb, [facility] [address] [id number] [place] [address] Feb, [facility] [address] [id number] [place] [address] Feb, [facility] [address] [facility] [id number] [place] [address] Feb, [facility] [address] [id number] [place] [address] Jan, [facility] [address] [id number] [place] [address] Jan, [facility] [address] [facility] [id number] [place] [address] Jan, [facility] [address] [facility] [id number] [place] [address] Jan, [facility] [address] [id number] [place] [address] Jan, [facility] [address] [id number] [place] [address] Jan, [facility] [address] [id number] [place] [address] Dec, [facility] [address] [id number] [place] [address] Dec, [facility] [place] [facility] [address] [id number] [place] [address] Dec, [facility] [place] [facility] [address] [id number] [place] [address] Dec, [facility] [place] [facility] [address] [id number] [place] [address] Dec, [facility] [place] [facility] [address] [id number] [place] [address] Dec, [facility] [place] [facility] [address] [id number] [place] [address] Nov, [facility] [place] [facility] [address] [id number] [place] [address] Nov, [facility] [place] [facility] [address] [id number] [place] [address] Nov, [facility] [place] [facility] [address] [id number] [place] [address] Nov, [facility] [place] [facility] [address] [id number] [place] [address] Nov, [facility] [place] [facility] [address] [id number] [place] [address] Nov, [facility] [place] [facility] [address] [id number] [address] Nov, [facility] [place] [facility] [address] [id number] [address] Nov, [facility] [place] [facility] [address] [id number] [address] Nov, [facility] [facility] [address] [id number] [address] Nov, [facility] [place] [facility] [address] [id number] [place] [address] Nov, [facility] [place] [facility] [address] [id number] [place] [address] Nov, [facility] [place] [facility] [address] [id number] [place] [address] Nov, [facility] [place] [facility] [address] [id number] [place] [address] Nov, [facility] [place] [facility] [address] [id number] [place] [address] Oct, [facility] [place] [facility] [address] [id number] [place] [address] Oct, [facility] [facility] [address] [id number] [place] [address] Oct, [facility] [address] [id number] [place] [address] Oct, [facility] [place] [facility] [address] [id number] [place] [address] Oct, [facility] [place] [facility] [address] [id number] [place] [address] Oct, [facility] [place] [facility] [address] [id number] [place] [address] Oct, [facility] [address] [id number] [place] [address] Oct, [facility] [place] [facility] [address] [id number] [place] [address] Oct, [facility] [place] [facility] [address] [id number] [place] [address] Sep, [facility] [place] [facility] [address] [id number] [place] [address] Sep, [facility] [facility] [address] [id number] [place] [address] Sep, [facility] [place] [facility] [address] [id number] [place] [address] Sep, [facility] [place] [facility] [address] [id number] [place] [address] Sep, [facility] [place] [facility] [address] [id number] [place] [address] Sep, [facility] [place] [facility] [address] [id number] [place] [address] Sep, [facility] [place] [facility] [address] [id number] [place] [address] Sep, [facility] [place] [facility] [address] [id number] [place] [address] Sep, [facility] [place] [facility] [address] [id number] [place] [address] Sep, [facility] [place] [facility] [address] [id number] [place] [address] Sep, [facility] [place] [facility] [address] [id number] [place] [address] Sep, [facility] [place] [facility] [address] [id number] [place] [address] Aug, [facility] [place] [facility] [address] [id number] [address] Aug, [facility] [place] [facility] [address] [id number] [place] [address] Aug, [facility] [facility] [address] [id number] [place] [address] Aug, [facility] [place] [facility] [address] [id number] [place] [address] Aug, [facility] [place] [facility] [address] [id number] [place] [address] Aug, [facility] [place] [facility] [address] [id number] [place] [address] Aug, [facility] [place] [facility] [address] [id number] [place] [address] 17 Aug, 2014 [facility] [facility] [address] [id number] [place] [address] 30 Jul, 2013 [facility] [place] [facility] [address] [id number] [place] [address] 30 Jul, 2013 [facility] [place] [facility] [address] [id number] [place] [address] 30 Jul, 2013 [facility] [place] [facility] [address] [id number] [place] [address] 30 Jul, 2013 [facility] [place] [facility] [address] [id number] [place] [address] 25 Jul, 2013 [facility] [place] [facility] [address] [id number] [place] [address] 25 Jul, 2013 [facility] [place] [facility] [address] [id number] [place] [address] 15 Jul, 2013 [facility] [facility] [address] [id number] [place] [address] 15 Jul, 2013 [facility] [address] [id number] [place] [address] 11 Jul, 2013 [facility] [place] [facility] [address] [id number] [place] [address] 11 Jul, 2013 [facility] [facility] [address] [id number] [place] [address] Jun, [facility] [facility] [address] [id number] [place] [address] Jun, [facility] [place] [facility] [address] [id number] [place] [address] Jun, [facility] [facility] [address] [id number] [place] [address] Jun, [facility] [place] [facility] [address] [id number] [place] [address] Jun, [facility] [place] [facility] [address] [id number] [place] [address] Jun, [facility] [place] [facility] [address] [id number] [place] [address] Jun, [facility] [facility] [address] [id number] [place] [address] Jun, [facility] [place] [facility] [address] [id number] [place] [address] Jun, [facility] [facility] [address] [id number] [place] [address] Jun, [facility] [facility] [address] [id number] [place] [address] Jun, [facility] [facility] [address] [id number] [place] [address] Jun, [facility] [facility] [address] [id number] [place] [address] Jun, [facility] [place] [facility] [address] [id number] [place] [address] Jun, [facility] [facility] [address] [id number] [place] [address] Jun, [facility] [facility] [address] [id number] [place] [address] Jun, [facility] [place] [facility] [address] [id number] [place] [address] Jun, [facility] [facility] [address] [id number] [place] [address] Jun, [facility] [address] [id number] [place] [address] Jun, [facility] [facility] [address] [id number] [place] [address] Jun, [facility] [facility] [address] [id number] [place] [address] Jun, [facility] [facility] [address] [id number] [place] [address] Jun, [facility] [address] [id number] [place] [address] May, [facility] [address] [id number] [place] [address] May, [facility] [place] [facility] [address] [id number] [place] [address] May, [facility] [place] [facility] [address] [id number] [place] [address] May, [facility] [facility] [address] [id number] [place] [address] May, [facility] [facility] [address] [id number] [place] [address] May, [facility] [place] [facility] [address] [id number] [place] [address] May, [facility] [facility] [address] [id number] [place] [address] May, [facility] [facility] [address] [id number] [place] [address] May, [facility] [address] [id number] [place] [address] May, [facility] [place] [facility] [address] [id number] [place] [address] May, [facility] [facility] [address] [id number] [place] [address] May, [facility] [facility] [address] [id number] [place] [address] May, [facility] [facility] [address] [id number] [place] [address] Apr, [facility] [place] [facility] [address] [id number] [place] [address] Apr, [facility] [facility] [address] [id number] [place] [address] Apr, [facility] [facility] [address] [id number] [place] [address] Apr, [facility] [facility] [address] [id number] [place] [address] Apr, [facility] [address] [id number] [place] [address] Apr, [facility] [facility] [address] [id number] [place] [address] Apr, [facility] [facility] [address] [id number] [place] [address] Apr, [facility] [address] [id number] [place] [address] Apr, [facility] [address] [id number] [place] [address] March, [facility] [facility] [address] [id number] [place] [address] March, [facility] [address] [id number] [place] [address] March, [facility] [address] [id number] [place] [address] March, [facility] [address] [id number] [place] [address] March, [facility] [address] [id number] [place] [address] March, [facility] [address] [id number] [place] [address] March, [facility] [address] [id number] [place] [address] March, [facility] [address] [id number] [place] [address] March, [facility] [place] [facility] [address] [id number] [place] [address] March, [facility] [address] [id number] [place] [address] March, [facility] [place] [facility] [address] [id number] [place] [address] March, [facility] [address] [id number] [place] [address] March, [facility] [place] [facility] [address] [id number] [place] [address] March, [facility] [address] [id number] [place] [address] March, [facility] [facility] [address] [id number] [place] [address] March, [facility] [facility] [address] [id number] [place] [address] March, [facility] [facility] [address] [id number] [place] [address] March, [facility] [address] [id number] [place] [address] March, [facility] [facility] [address] [id number] [place] [address] March, [facility] [facility] [address] [id number] [place] [address] Feb, [facility] [place] [facility] [address] [id number] [place] [address] Feb, [facility] [address] [id number] [place] [address] Feb, [facility] [facility] [address] [id number] [place] [address] Feb, [facility] [place] [facility] [address] [id number] [place] [address] Feb, [facility] [place] [facility] [address] [id number] [place] [address] Feb, [facility] [place] [facility] [address] [id number] [place] [address] Feb, [facility] [place] [facility] [address] [id number] [place] [address] Feb, [facility] [place] [facility] [address] [id number] [place] [address] Jan, [facility] [place] [facility] [address] [id number] [place] [address] Jan, [facility] [place] [facility] [address] [id number] [place] [address] Jan, [facility] [place] [facility] [address] [id number] [place] [address] Jan, [facility] [place] [facility] [address] [id number] [place] [address] Jan, [facility] [place] [facility] [address] [id number] [place] [address] Jan, [facility] [place] [facility] [address] [id number] [place] [address] Jan, [facility] [place] [facility] [address] [id number] [place] [address] Jan, [facility] [place] [facility] [address] [id number] [place] [address] Jan, [facility] [place] [facility] [address] [id number] [place] [address] Jan, [facility] [place] [facility] [address] [id number] [place] [address] Dec, [facility] [place] [facility] [address] [id number] [place] [address] Dec, [facility] [place] [facility] [address] [id number] [place] [address] Dec, [facility] [place] [facility] [address] [id number] [place] [address] Dec, [facility] [place] [facility] [address] [id number] [place] [address] Dec, [facility] [place] [facility] [address] [id number] [place] [address] Dec, [facility] [place] [facility] [address] [id number] [place] [address] Dec, [facility] [facility] [address] [id number] [place] [address] Dec, [facility] [place] [facility] [address] [id number] [place] [address] Nov, [facility] [place] [facility] [address] [id number] [place] [address] Nov, [facility] [place] [facility] [address] [id number] [place] [address] Nov, [facility] [place] [facility] [address] [id number] [place] [address] Nov, [facility] [place] [facility] [address] [id number] [place] [address] Nov, [facility] [place] [facility] [address] [id number] [place] [address] Nov, [facility] [place] [facility] [address] [id number] [place] [address] Nov, [facility] [place] [facility] [address] [id number] [place] [address] Nov, [facility] [place] [facility] [address] [id number] [address] Nov, [facility] [address] [id number] [place] [address] Nov, [facility] [place] [facility] [address] [id number] [place] [address] Nov, [facility] [address] [id number] [place] [address] Nov, [facility] [place] [facility] [address] [id number] [place] [address] Nov, [facility] [address] [id number] [place] [address] Oct, [facility] [place] [facility] [address] [id number] [place] [address] Oct, [facility] [address] [id number] [place] [address] Oct, [facility] [place] [facility] [address] [id number] [place] [address] Oct, [facility] [address] [id number] [place] [address] Oct, [facility] [place] [facility] [address] [id number] [place] [address] Oct, [facility] [address] [id number] [place] [address] 18 Oct, 2013 [facility] [place] [facility] [address] [id number] [place] [address] 18 Oct, 2013 [facility] [place] [facility] [address] [id number] [place] [address] 17 Oct, 2013 [facility] [place] [facility] [address] [id number] [place] [address] 17 Oct, 2013 [facility] [place] [facility] [address] [id number] [place] [address] Oct, [facility] [place] [facility] [address] [id number] [place] [address] Oct, [facility] [address] [id number] [place] [address] Oct, [facility] [place] [facility] [address] [id number] [place] [address] Oct, [facility] [place] [facility] [address] [id number] [place] [address] Sep, [facility] [place] [facility] [address] [id number] [place] [address] Sep, [facility] [place] [facility] [address] [id number] [place] [address] Sep, [facility] [place] [facility] [address] [id number] [place] [address] Sep, [facility] [place] [facility] [address] [id number] [place] [address] Sep, [facility] [place] [facility] [address] [id number] [place] [address] Sep, [facility] [place] [facility] [address] [id number] [place] [address] Sep, [facility] [place] [facility] [address] [id number] [place] [address] Sep, [facility] [place] [facility] [address] [id number] [place] [address] Sep, [facility] [place] [facility] [address] [id number] [place] [address] Sep, [facility] [place] [facility] [address] [id number] [place] [address] Aug, [facility] [place] [facility] [address] [id number] [place] [address] Aug, [facility] [place] [facility] [address] [id number] [place] [address] Aug, [facility] [place] [facility] [address] [id number] [place] [address] 24 Aug, 2013 [facility] [place] [facility] [address] [id number] [place] [address] Aug, [facility] [place] [facility] [address] [id number] [place] [address] Aug, [facility] [place] [facility] [address] [id number] [place] [address] Aug, [facility] [place] [facility] [address] [id number] [place] [address] Aug, [facility] [place] [facility] [address] [id number] [address] Aug, [facility] [place] [facility] [address] [id number] [place] [address] Aug, [facility] [place] [facility] [address] [id number] [address] 18 Aug, 2013 [facility] [place] [facility] [address] [id number] [place] [address] 18 Aug, 2013 [facility] [place] [facility] [address] [id number] [address] 18 Aug, 2013 [facility] [place] [facility] [address] [id number] [address] 18 Aug, 2013 [facility] [place] [facility] [address] [id number] [address] 17 Aug, 2013 [facility] [place] [facility] [address] [id number] [address] 14 Aug, 2013 [facility] [place] [facility] [address] [id number] [address] 14 Aug, 2013 [facility] [place] [facility] [address] [id number] [address] Aug, [facility] [place] [facility] [address] [id number] [place] [address] 20 Jul, 2013 [facility] [place] [facility] [address] [id number] [place] [address] 19 Jul, 2013 [facility] [place] [facility] [address] [id number] [place] [address] 18 Jul, 2013 [facility] [place] [facility] [address] [id number] [place] [address] 11 Jul, 2013 [facility] [place] [facility] [address] [id number] [place] [address] 11 Jul, 2013 [facility] [place] [facility] [address] [id number] [place] [address] Jun, [facility] [place] [facility] [address] [id number] [place] [address] Jun, [facility] [place] [facility] [address] [id number] [place] [address] Jun, [facility] [place] [facility] [address] [id number] [place] [address] 15 Jun, 2013 [facility] [place] [facility] [address] [id number] [place] [address] Jun, [facility] [place] [facility] [address] [id number] [place] [address] Jun, [facility] [place] [facility] [address] [id number] [place] [address] Jun, [facility] [place] [facility] [address] [id number] [place] [address] Jun, [facility] [place] [facility] [address] [id number] [place] [address] Jun, [facility] [place] [facility] [address] [id number] [place] [address] Jun, [facility] [place] [facility] [address] [id number] [place] [address] May, [facility] [place] [facility] [address] [id number] [place] [address] May, [facility] [place] [facility] [address] [id number] [place] [address] May, [facility] [place] [facility] [address] [id number] [place] [address] May, [facility] [place] [facility] [address] [id number] [place] [address] May, [facility] [place] [facility] [address] [id number] [place] [address] 16 May, 2013 [facility] [place] [facility] [address] [id number] [place] [address] May, [facility] [place] [facility] [address] [id number] [place] [address] May, [facility] [place] [facility] [address] [id number] [place] [address] May, [facility] [place] [facility] [address] [id number] [place] [address] Apr, [facility] [place] [facility] [address] [id number] [place] [address] Apr, [facility] [place] [facility] [address] [id number] [place] [address] Apr, [facility] [place] [facility] [address] [id number] [place] [address] Apr, [facility] [place] [facility] [address] [id number] [place] [address] Apr, [facility] [place] [facility] [address] [id number] [place] [address] Apr, [facility] [place] [facility] [address] [id number] [place] [address] Apr, [facility] [place] [facility] [address] [id number] [place] [address] March, [facility] [place] [facility] [address] [id number] [place] [address] Feb, [facility] [place] [facility] [address] [id number] [place] [address] Feb, [facility] [place] [facility] [address] [id number] [place] [address] Feb, [facility] [place] [facility] [address] [id number] [place] [address] Jan, [facility] [place] [facility] [address] [id number] [place] [address] Jan, [facility] [place] [facility] [address] [id number] [place] [address] Jan, [facility] [place] [facility] [address] [id number] [place] [address] Jan, [facility] [place] [facility] [address] [id number] [place] [address] Jan, [facility] [place] [facility] [address] [id number] [place] [address] Jan, [facility] [place] [facility] [address] [id number] [place] [address] Jan, [facility] [place] [facility] [address] [id number] [place] [address] Jan, [facility] [place] [facility] [address] [id number] [place] [address] 28 Dec, 2012 [facility] [place] [facility] [address] [id number] [place] [address] Dec, [facility] [place] [facility] [address] [id number] [place] [address] Dec, [facility] [place] [facility] [address] [id number] [place] [address] Dec, [facility] [place] [facility] [address] [id number] [place] [address] 07 Dec, 2012 [facility] [address] [id number] [place] [address] 06 Dec, 2012 [facility] [place] [facility] [address] [id number] [place] [address] 05 Dec, 2012 [facility] [place] [facility] [address] [id number] [place] [address] Nov, [facility] [place] [facility] [address] [id number] [place] [address] 24 Nov, 2012 [facility] [place] [facility] [address] [id number] [place] [address] 18 Nov, 2012 [facility] [address] [id number] [place] [address] 15 Nov, 2012 [facility] [address] [id number] [place] [address] Nov, [facility] [address] [id number] [place] [address] Nov, [facility] [address] [id number] [place] [address] Nov, [facility] [address] [id number] [place] [address] Oct, [facility] [address] [id number] [place] [address] Oct, [facility] [place] [facility] [address] [id number] [place] [address] Oct, [facility] [place] [facility] [address] [id number] [place] [address] Oct, [facility] [place] [facility] [address] [id number] [place] [address] 17 Oct, 2012 [facility] [place] [facility] [address] [id number] [place] [address] Oct, [facility] [place] [facility] [address] [id number] [place] [address] Oct, [facility] [place] [facility] [address] [id number] [place] [address] Oct, [facility] [place] [facility] [address] [facility] [id number] [place] [address] Oct, [facility] [place] [facility] [address] [id number] [place] [address] Oct, [facility] [place] [facility] [address] [id number] [place] [address] Oct, [facility] [place] [facility] [address] [id number] [place] [address] Oct, [facility] [place] [facility] [address] [facility] [id number] [place] [address] Sep, [facility] [place] [facility] [address] [id number] [address] Sep, [facility] [place] [facility] [address] [id number] [address] Sep, [facility] [place] [facility] [address] [facility] [id number] [address] Sep, [facility] [place] [facility] [address] [id number] [address] Sep, [facility] [place] [facility] [address] [id number] [address] Sep, [facility] [place] [facility] [address] [id number] [address] Sep, [facility] [place] [facility] [address] [facility] [id number] [address] Sep, [facility] [place] [facility] [address] [facility] [id number] [address] Sep, [facility] [place] [facility] [address] [id number] [place] [address] Sep, [facility] [place] [facility] [address] [id number] [place] [address] Sep, [facility] [place] [facility] [address] [id number] [place] [address] Aug, [facility] [place] [facility] [address] [id number] [place] [address] Aug, [facility] [place] [facility] [address] [id number] [place] [address] Aug, [facility] [place] [facility] [address] [id number] [place] [address] Aug, [facility] [place] [facility] [address] [id number] [place] [address] Aug, [facility] [place] [facility] [address] [id number] [place] [address] Aug, [facility] [place] [facility] [address] [id number] [place] [address] Aug, [facility] [place] [facility] [address] [id number] [place] [address] Aug, [facility] [place] [facility] [address] [facility] [id number] [place] [address] Aug, [facility] [place] [facility] [address] [id number] [place] [address] Aug, [facility] [place] [facility] [address] [id number] [place] [address] 22 Jul, 2012 [facility] [place] [facility] [address] [id number] [place] [address] 20 Jul, 2012 [facility] [place] [facility] [address] [id number] [place] [address] 10 Jul, 2012 [facility] [place] [facility] [address] [id number] [place] [address] Jul, [facility] [place] [facility] [address] [id number] [place] [address] Jun, [facility] [place] [facility] [address] [id number] [place] [address] Jun, [facility] [place] [facility] [address] [id number] [place] [address] Jun, [facility] [place] [facility] [address] [id number] [place] [address] Jun, [facility] [place] [facility] [address] [id number] [place] [address] Jun, [facility] [place] [facility] [address] [id number] [place] [address] Jun, [facility] [place] [facility] [address] [id number] [place] [address] Jun, [facility] [place] [facility] [address] [id number] [place] [address] May, [facility] [place] [facility] [address] [id number] [place] [address] May, [facility] [place] [facility] [address] [id number] [place] [address] May, [facility] [place] [facility] [address] [id number] [place] [address] May, [facility] [place] [facility] [address] [id number] [place] [address] May, [facility] [place] [facility] [address] [id number] [place] [address] Apr, [facility] [place] [facility] [address] [id number] [place] [address] Apr, [facility] [place] [facility] [address] [id number] [place] [address] Apr, [facility] [place] [facility] [address] [id number] [place] [address] Apr, [facility] [address] [id number] [place] [address] Apr, [facility] [place] [facility] [address] [id number] [place] [address] March, [facility] [place] [facility] [address] [id number] [place] [address] March, [facility] [place] [facility] [address] [id number] [place] [address] March, [facility] [place] [facility] [address] [id number] [place] [address] March, [facility] [place] [facility] [address] [id number] [place] [address] March, [facility] [address] [id number] [place] [address] March, [facility] [place] [facility] [address] [id number] [place] [address] March, [facility] [place] [facility] [address] [id number] [place] [address] March, [facility] [place] [facility] [address] [id number] [place] [address] March, [facility] [place] [facility] [address] [id number] [place] [address] March, [facility] [place] [facility] [address] [id number] [place] [address] Feb, [facility] [place] [facility] [address] [id number] [place] [address] Feb, [facility] [place] [facility] [address] [id number] [place] [address] Feb, [facility] [place] [facility] [address] [id number] [place] [address] Feb, [facility] [place] [facility] [address] [id number] [place] [address] 17 Feb, 2012 [facility] [address] [id number] [place] [address] 17 Feb, 2012 [facility] [place] [facility] [address] [id number] [place] [address] Feb, [facility] [address] [id number] [place] [address] Feb, [facility] [address] [id number] [place] [address] Feb, [facility] [address] [id number] [place] [address] 08 Jan, 2012 [facility] [address] [id number] [place] [address] Jan, [facility] [address] [id number] [place] [address] Jan, [facility] [address] [id number] [place] [address] Jan, [facility] [address] [id number] [place] [address] Dec, [facility] [address] [id number] [place] [address] Dec, [facility] [address] [id number] [place] [address] Nov, [facility] [address] [id number] [place] [address] Nov, [facility] [place] [facility] [address] [id number] [place] [address] Nov, [facility] [place] [facility] [address] [id number] [place] [address] Nov, [facility] [place] [facility] [address] [id number] [place] [address] Nov, [facility] [address] [facility] [id number] [address] Oct, [facility] [address] [facility] [id number] [place] [address] Oct, [facility] [id number] [address] Oct, [facility] [id number] [address] Oct, [facility] [address] [facility] [id number] [place] [address] Oct, [facility] [id number] [place] [address] Oct, [facility] [id number] [address] Oct, [facility] [id number] [address] Oct, [facility] [address] [id number] [address] Sep, IMMUNIZATIONS No Known Immunizations SOCIAL HISTORY Never Assessed REASON FOR VISIT [facility] PLAN OF CARE VITAL SIGNS MEDICATIONS Unknown Medications RESULTS No Results PROCEDURES No Known procedures INSTRUCTIONS MEDICATIONS ADMINISTERED No Known Medications MEDICAL (GENERAL) HISTORY Type Description Date 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
--- OUTSIDE RECORDS SUMMARY | 2019-04-16 15:36 | XMS REPORT ---
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 Name Role Phone Migration, Doctor Unavailable Unavailable PROBLEMS Type Condition ICD9-CM Code [id number] Code Onset Dates Condition Status SNOMED Code Problem Coronary artery disease I25.10 Active 07428647 Problem Hypertension I10 Active 11515774 Problem Other chronic pain G89.29 Active 48762863 Problem Hyperlipidemia E78.5 Active 07952787 Problem Type 2 diabetes mellitus without complication, without long-term current use of insulin E11.9 Active 316618967 Problem Low back pain M54.5 Active 434234947 Problem Pharyngeal dysphagia R13.13 Active [id number] Problem Anxiety F41.9 Active 70594036 Problem Peripheral vascular disease I73.9 Active 659532316 Problem Suprapubic catheter Z93.59 Active 462910475 Problem Reactive depression F32.9 Active 57555693 Problem Neurogenic bladder N31.9 Active 619995753 Problem Ventral hernia without obstruction or gangrene K43.9 Active 950218827 Problem Insomnia G47.00 Active 683013723 Problem Paroxysmal atrial fibrillation I48.0 Active 226644070 Problem 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 Active 16498474 Problem Encounter for suprapubic catheter care Z43.5 Active [id number] ALLERGIES No Information ENCOUNTERS Encounter Location Date Diagnosis Via [facility] [address] [place] [id number] Jun, Via [facility] [address] [place] [id number] March, [facility] [address] [facility] [id number] [address] Feb, Other chronic pain G89.29 Via [facility] [address] [place] [id number] Feb, Neurogenic bladder N31.9 and Suprapubic catheter Z93.59 [facility] [address] [facility] [id number] [place] [address] Jan, Anxiety F41.9 [facility] [address] [place] [address] Dec, Anxiety F41.9 [facility] [id number] [place] [address] Dec, Other chronic pain G89.29 and Anxiety F41.9 [facility] [id number] [place] [address] Dec, Via [employer] [address] [place] [id number] Dec, Neurogenic bladder N31.9 and Suprapubic catheter Z93.59 [facility] [id number] [place] [address] Nov, Other chronic pain G89.29 and Anxiety F41.9 [facility] [id number] [place] [address] Nov, Via [employer] [address] [place] [id number] Nov, Suprapubic catheter Z93.59 [facility] [id number] [place] [address] Oct, Other chronic pain G89.29 and Anxiety F41.9 [facility] [id number] [place] [address] Oct, [facility] [id number] [place] [address] Oct, Suprapubic catheter Z93.59 [facility] [id number] [place] [address] Oct, Via [employer] [address] [place] [id number] Oct, [facility] [address] [place] [address] Oct, Anxiety F41.9 [facility] [address] [id number] [address] 04 Oct, 2018 Anxiety F41.9 Via [employer] [address] [place] [id number] Oct, Other chronic pain G89.29 [facility] [address] [id number], [place] [address] 14 Sep, 2018 Other chronic pain G89.29 Via [employer] [address] [place] [id number] Sep, Suprapubic catheter Z93.59 and Cervicalgia M54.2 [facility] [address] [id number] [place] [address] Sep, [facility] [address] [id number] [place] [address] Sep, [facility] [address] [facility] [id number] [place] [address] Sep, Via [facility] [employer] [address] [place] [id number] Aug, Cystitis N30.90 [facility] [address] [id number] [place] [address] Aug, [facility] [address] [id number] [place] [address] Aug, Other chronic pain G89.29 [facility] [address] [id number] [place] [address] Aug, Via [employer] [address] [place] [id number] Aug, Encounter for suprapubic catheter care Z43.5 [facility] [address] [id number] [place] [address] Jul, Via [employer] [address] [place] [id number] Jul, [facility] [address] [id number] [place] [address] Jul, Other chronic pain G89.29 [facility] [address] [id number] [address] Jul, [facility] [address] [facility] [id number] [address] Jul, Via [employer] [address] [place] [id number] Jun, 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 [facility] [id number] [place] [address] Jun, Other chronic pain G89.29 [facility] [id number] [place] [address] Jun, Via [employer] [address] [place] [address] May, Anxiety F41.9 ; Type 2 diabetes mellitus without complication, without long-term current use of insulin E11.9 ; Hypertension I10 ; Low back pain M54.5 ; Paroxysmal atrial fibrillation I48.0 and 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 [facility] [address] [id number] [address] May, Other chronic pain G89.29 Via [employer] [address] [place] [id number] May, Low back pain M54.5 [facility] [address] [id number] [address] May, [facility] [id number] [place] [address] Apr, Other chronic pain G89.29 [facility] [address]00565[place] [address] Apr, [facility] [address] [place] [address] Apr, Via [employer] [address] [place] [id number] Apr, Closed compression fracture of L3 lumbar vertebra with routine healing, subsequent encounter S32.030D Via [employer] [address] [place] [id number] 14 Apr, 2018 Low back pain M54.5 Via [employer] [address] [place] [id number] 12 Apr, 2018 Coccydynia M53.3 [facility] [address] [facility] [id number], [place] [address] March, [facility] [address] [facility] [id number] [place] [address] March, Other chronic pain G89.29 [facility] [address] [id number] [place] [address] March, [facility] [address] [facility] [id number] [place] [address] March, [facility] [id number] [place] [address] Feb, [facility] [address] [facility] [id number] [place] [address] Feb, Other chronic pain G89.29 Via [employer] [address] [place] [address] Feb, Other chronic pain G89.29 and Anxiety F41.9 [facility] [address] [id number], [place] [address] Feb, [facility] [address] [facility] [id number], [place] [address] Jan, [facility] [address] [facility] [id number], [place] [address] Jan, [facility] [address] [facility] [id number] [place] [address] 13 Jan, 2018 [facility] [address] [facility] [id number], [place] [address] 02 Jan, 2018 [facility] [address] [facility] [id number] [place] [address] Dec, Via [employer] [address] [address] [address] [place] [address] Dec, Peripheral vascular disease I73.9 ; 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 ; Other chronic pain G89.29 ; Anxiety F41.9 ; Reactive depression F32.9 ; Insomnia G47.00 and Type 2 diabetes mellitus without complication, without long-term current use of insulin E11.[address] [id number] [place] [address] Nov, [facility] [address] [id number] [address] Nov, Anxiety F41.9 [facility] [address] [facility] [id number], [place] [address] Nov, [facility] [address] [id number][place] [address] Nov, Anxiety F41.9 Via [employer] [address] [place] [address] Nov, Status post surgery Z98.890 ; Confused R41.0 ; Anxiety F41.9 and Other chronic pain G89.29 [facility] [address] [id number][place] [address] Nov, Other chronic pain G89.29 [facility] [address] [facility] [id number], [place] [address] Oct, [facility] [address] [id number] [address] Oct, Other chronic pain G89.29 [facility] [address] [facility] [id number][place] [address] Oct, Anxiety F41.9 [facility] [address] [id number][place] [address] Sep, Other chronic pain G89.29 [facility] [address] [id number][place] [address] Sep, Via [employer] [address] [place] [id number] Aug, Dysuria R30.0 and Anxiety F41.9 [facility] [address] [place] [address] Aug, [facility] [id number] [place] [id number] Aug, Other chronic pain G89.29 [facility] [id number] [place] [address] Jul, Other chronic pain G89.29 [facility] [id number] [place] [id number] Jun, [facility] [id number] [place] [id number] Jun, Other chronic pain G89.29 [facility] [id number] [place] [address] Jun, [facility] [id number] [place] [address] May, Other chronic pain G89.29 [facility] [id number] [place] [address] Apr, Other chronic pain G89.29 Via [employer] [address] [place] [id number] Apr, Reactive depression F32.9 and Pharyngeal dysphagia R13.13 [facility] [address] [place] [address] Apr, Urinary tract infection without hematuria, site unspecified N39.0 [facility] [address] [place] [address] March, Other chronic pain G89.29 [facility] [address] [place] [address] Feb, Other chronic pain G89.29 [facility] [id number] [place] [address] Feb, [facility] [id number][place] [address] Feb, [facility] [employer] [address] [place] [id number] Feb, Dysuria R30.0 and Ventral hernia without obstruction or gangrene K43.9 [facility] [address] [facility] [id number] [place] [address] Jan, Other chronic pain G89.29 [facility] [id number] [place] [id number] Dec, Other chronic pain G89.29 [facility] [address] [place] [address] Nov, Other chronic pain G89.29 Via [employer] [address] [place] [id number] Nov, Lymphadenitis I88.9 [facility] [address] [place] [address] Nov, Other chronic pain G89.29 [facility] [address] [place] [address] Nov, [facility] [id number] [place] [id number] Nov, Other chronic pain G89.29 Via [employer] [employer] [address] [place] [id number] Oct, Low back pain M54.5 ; Hypertension I10 and Type 2 diabetes mellitus without complication, without long-term current use of insulin E11.9 [facility] [address] [facility] [id number], [place] [address] Oct, [facility] [id number] [place] [address] Oct, [facility] [address] [id number], [place] [address] Oct, [facility] [address]00565100[place], [place] [address] Oct, [facility] [address] [facility] [id number], [place] [address] Sep, [facility] [address] [facility] [id number], [place] [address] Sep, [facility] [address]00565100[place], [place] [address] Aug, Other chronic pain G89.29 [facility] [address] [facility] [id number][place] [address] Jul, [facility] [address] [facility] [id number] [place] [address] Jul, [facility] [address]00565100[place], [place] [address] Jul, [facility] [address]00565100[place], [place] [address] Jun, [facility] [address] [id number], [place] [address] Jun, [facility] [address] [place] [address] Jun, Low back pain M54.5 ; Other chronic pain G89.29 and Coronary artery disease I25.10 [facility] [address] [id number], [place] [address] Jun, [facility] [address] [id number], [place] [address] May, [facility] [address] [id number], [place] [address] May, [facility] [address] [id number], [place] [address] May, Other chronic pain G89.29 [facility] [address] [id number], [place] [address] May, [facility] [address]00565100[place], [place] [address] Apr, [facility] [address] [id number], [place] [address] Apr, Acute cystitis without hematuria N30.00 [facility] [address]00565100[place], [place] [address] 16 Apr, 2016 Acute cystitis without hematuria N30.00 ; Coronary artery disease I25.10 ; Low back pain M54.5 and Other chronic pain G89.29 [facility] [address]00565100[place], [place] [address] Apr, Other chronic pain G89.29 [facility] [address] [id number], [place] [address] March, Other chronic pain G89.29 [facility] [id number] [place] [address] Feb, [facility] [address] [place] [address] Feb, Arthritis M19.90 [facility] [id number] [place] [address] Feb, [facility] [address]00565100[place], [place] [address] Jan, [facility] [address]00565100[place], [place] [address] Jan, [facility] [address]00565100[place], [place] [address] Jan, Other chronic pain G89.29 [facility] [address]00565100[place], [place] [address] Jan, Hypertension I10 ; Coronary artery disease I25.10 and Insomnia G47.00 [facility] [address]00565100[place], [place] [address] Jan, [facility] [address] [facility] [id number], [place] [address] Dec, Right hip pain M25.551 [facility] [address] [facility] [id number], [place] [address] Dec, [facility] [address] [facility] [id number] [address] Dec, [facility] [address] [facility] [id number] [place] [address] Dec, [facility] [address] [facility] [id number] [place] [address] Dec, Other chronic pain G89.29 [facility] [address]00565100[place], [place] [address] Dec, [facility] [address] [place] [address] Nov, [facility] [address]00565100[place], [place] [address] Nov, Other chronic pain G89.29 [facility] [address]00565100[place], [place] [address] Nov, Right hip pain M25.551 and Coronary artery disease I25.10 [facility] [address]00565100[place], [place] [address] Nov, Other chronic pain G89.29 [facility] [address]00565100[place], [place] [address] Oct, [facility] [address]00565100[place], [place] [address] Oct, [facility] [address]00565100[place], [place] [address] Sep, [facility] [address]00565100[place], [place] [address] Sep, [facility] [address] [facility] [id number] [address] Aug, [facility] [id number] [place] [address] Aug, Hypertension I10 ; Coronary artery disease I25.10 and Arthritis M19.90 [facility] [address] [id number], [place] [address] Jun, [facility] [id number] [place] [address] Jun, Essential hypertension, benign 401.1 ; Other chronic pain 338.29 and Chronic airway obstruction, not elsewhere classified 496 [facility] [address]00565100[place] [address] Jun, [facility] [address]00565100[place], [place] [address] Jun, [facility] [address]00565100[place], [place] [address] Jun, [facility] [address]00565100[place], [place] [address] May, [facility] [address]00565100[place], [place] [address] May, [facility] [address]00565100[place], [place] [address] Apr, [facility] [address] [id number], [place] [address] Apr, [facility] [address] [id number] [place] [address] Apr, [facility] [address] [id number], [place] [address] March, [facility] [address] [id number] [place] [address] March, [facility] [address] [id number] [place] [address] March, [facility] [address] [id number] [place] [address] March, [facility] [address] [id number] [place] [address] March, Sialadenitis 527.2 [facility] [address] [id number] [place] [address] Feb, [facility] [address] [id number] [place] [address] Feb, [facility] [address] [id number] [place] [address] Feb, [facility] [address] [id number] [place] [address] Feb, [facility] [address] [facility] [id number] [place] [address] Feb, [facility] [address] [id number] [place] [address] Jan, [facility] [address] [id number] [place] [address] Jan, [facility] [address] [facility] [id number] [place] [address] Jan, [facility] [address] [facility] [id number] [place] [address] Jan, [facility] [address] [id number] [place] [address] Jan, [facility] [address] [id number] [place] [address] Jan, [facility] [address] [id number] [place] [address] Dec, [facility] [address] [id number] [place] [address] Dec, [facility] [place] [facility] [address] [id number] [place] [address] Dec, [facility] [place] [facility] [address] [id number] [place] [address] Dec, [facility] [place] [facility] [address] [id number] [place] [address] Dec, [facility] [place] [facility] [address] [id number] [place] [address] Dec, [facility] [place] [facility] [address] [id number] [place] [address] Nov, [facility] [place] [facility] [address] [id number] [place] [address] Nov, [facility] [place] [facility] [address] [id number] [place] [address] Nov, [facility] [place] [facility] [address] [id number] [place] [address] Nov, [facility] [place] [facility] [address] [id number] [place] [address] Nov, [facility] [place] [facility] [address] [id number] [place] [address] Nov, [facility] [place] [facility] [address] [id number] [address] Nov, [facility] [place] [facility] [address] [id number], [place] [address] Nov, [facility] [place] [facility] [address] [id number], [place] [address] Nov, [facility] [place] [facility] [address] [id number] [address] Nov, [facility] [place] [facility] [address] [id number] [place] [address] Nov, [facility] [place] [facility] [address] [id number] [place] [address] Nov, [facility] [place] [facility] [address] [id number] [place] [address] Nov, [facility] [place] [facility] [address] [id number] [place] [address] Nov, [facility] [place] [facility] [address] [id number] [place] [address] Oct, [facility] [place] [facility] [address] [id number] [place] [address] Oct, [facility] [place] [facility] [address] [id number] [place] [address] Oct, [facility] [place] [facility] [address] [id number] [place] [address] Oct, [facility] [place] [facility] [address] [id number] [place] [address] Oct, [facility] [place] [facility] [address] [id number] [place] [address] Oct, [facility] [place] [facility] [address] [id number] [place] [address] Oct, [facility] [place] [facility] [address] [id number] [place] [address] Oct, [facility] [place] [facility] [address] [id number] [place] [address] Oct, [facility] [place] [facility] [address] [id number] [place] [address] Sep, [facility] [place] [facility] [address] [id number] [place] [address] Sep, [facility] [place] [facility] [address] [id number] [place] [address] Sep, [facility] [place] [facility] [address] [id number] [place] [address] Sep, [facility] [place] [facility] [address] [id number] [place] [address] Sep, [facility] [place] [facility] [address] [id number] [place] [address] Sep, [facility] [place] [facility] [address] [id number] [place] [address] Sep, [facility] [place] [facility] [address] [id number] [place] [address] Sep, [facility] [place] [facility] [address] [id number] [place] [address] Sep, [facility] [place] [facility] [address] [id number] [place] [address] Sep, [facility] [place] [facility] [address] [id number] [place] [address] Sep, [facility] [place] [facility] [address] [id number] [place] [address] Sep, [facility] [place] [facility] [address] [id number] [place] [address] Aug, [facility] [place] [facility] [address] [id number] [address] Aug, [facility] [place] [facility] [address] [id number], [place] [address] Aug, [facility] [place] [facility] [address] [id number] [address] Aug, [facility] [place] [facility] [address] [id number] [place] [address] Aug, [facility] [place] [facility] [address] [id number], [place] [address] Aug, [facility] [place] [facility] [address] [id number] [place] [address] Aug, [facility] [place] [facility] [address] [id number] [place] [address] 17 Aug, 2014 [facility] [place] [facility] [address] [id number] [place] [address] 30 Jul, 2013 [facility] [place] [facility] [address] [id number] [place] [address] 30 Jul, 2013 [facility] [place] [facility] [address] [id number] [place] [address] 30 Jul, 2013 [facility] [place] [facility] [address] [id number] [place] [address] 30 Jul, 2013 [facility] [place] [facility] [address] [id number] [place] [address] 25 Jul, 2013 [facility] [place] [facility] [address] [id number] [place] [address] 25 Jul, 2013 [facility] [place] [facility] [address] [id number] [place] [address] 15 Jul, 2013 [facility] [place] [facility] [address] [id number] [place] [address] 15 Jul, 2013 [facility] [place] [facility] [address] [id number] [place] [address] 11 Jul, 2013 [facility] [place] [facility] [address] [id number] [place] [address] 11 Jul, 2013 [facility] [place] [facility] [address] [id number] [place] [address] Jun, [facility] [place] [facility] [address] [id number] [place] [address] Jun, [facility] [place] [facility] [address] [id number] [place] [address] Jun, [facility] [place] [facility] [address] [id number] [place] [address] Jun, [facility] [place] [facility] [address] [id number] [place] [address] Jun, [facility] [place] [facility] [address] [id number] [place] [address] Jun, [facility] [place] [facility] [address] [id number] [place] [address] Jun, [facility] [place] [facility] [address] [id number] [place] [address] Jun, [facility] [place] [facility] [address] [id number] [place] [address] Jun, [facility] [place] [facility] [address] [id number] [place] [address] Jun, [facility] [place] [facility] [address] [id number] [place] [address] Jun, [facility] [place] [facility] [address] [id number] [place] [address] Jun, [facility] [place] [facility] [address] [id number] [place] [address] Jun, [facility] [place] [facility] [address] [id number] [place] [address] Jun, [facility] [place] [facility] [address] [id number] [place] [address] Jun, [facility] [place] [facility] [address] [id number] [place] [address] Jun, [facility] [place] [facility] [address] [id number] [place] [address] Jun, [facility] [place] [facility] [address] [id number] [place] [address] Jun, [facility] [place] [facility] [address] [id number] [place] [address] Jun, [facility] [place] [facility] [address] [id number] [place] [address] Jun, [facility] [place] [facility] [address] [id number] [place] [address] Jun, [facility] [place] [facility] [address] [id number] [place] [address] Jun, [facility] [place] [facility] [address] [id number] [place] [address] May, [facility] [place] [facility] [address] [id number] [place] [address] May, [facility] [place] [facility] [address] [id number] [place] [address] May, [facility] [place] [facility] [address] [id number] [place] [address] May, [facility] [place] [facility] [address] [id number] [place] [address] May, [facility] [place] [facility] [address] [id number] [place] [address] May, [facility] [place] [facility] [address] [id number] [place] [address] May, [facility] [place] [facility] [address] [id number] [place] [address] May, [facility] [place] [facility] [address] [id number] [place] [address] May, [facility] [place] [facility] [address] [id number] [place] [address] May, [facility] [place] [facility] [address] [id number] [place] [address] May, [facility] [place] [facility] [address] [id number] [place] [address] May, [facility] [place] [facility] [address] [id number] [place] [address] May, [facility] [place] [facility] [address] [id number] [place] [address] Apr, [facility] [place] [facility] [address] [id number] [place] [address] Apr, [facility] [place] [facility] [address] [id number] [place] [address] Apr, [facility] [place] [facility] [address] [id number] [place] [address] Apr, [facility] [place] [facility] [address] [id number] [place] [address] Apr, [facility] [place] [facility] [address] [id number] [place] [address] Apr, [facility] [place] [facility] [address] [id number] [place] [address] Apr, [facility] [place] [facility] [address] [id number] [place] [address] Apr, [facility] [place] [facility] [address] [id number] [place] [address] Apr, [facility] [place] [facility] [address] [id number] [place] [address] March, [facility] [place] [facility] [address] [id number] [place] [address] March, [facility] [place] [facility] [address] [id number] [place] [address] March, [facility] [place] [facility] [address] [id number] [place] [address] March, [facility] [place] [facility] [address] [id number] [place] [address] March, [facility] [place] [facility] [address] [id number] [place] [address] March, [facility] [place] [facility] [address] [id number] [place] [address] March, [facility] [place] [facility] [address] [id number] [place] [address] March, [facility] [address] [id number] [place] [address] March, [facility] [place] [facility] [address] [id number] [place] [address] March, [facility] [place] [facility] [address] [id number] [place] [address] March, [facility] [place] [facility] [address] [id number] [place] [address] March, [facility] [place] [facility] [address] [id number] [place] [address] March, [facility] [place] [facility] [address] [id number] [place] [address] March, [facility] [place] [facility] [address] [id number] [place] [address] March, [facility] [place] [facility] [address] [id number] [place] [address] March, [facility] [place] [facility] [address] [id number] [place] [address] March, [facility] [place] [facility] [address] [id number] [place] [address] March, [facility] [place] [facility] [address] [id number] [place] [address] March, [facility] [place] [facility] [address] [id number] [place] [address] March, [facility] [place] [facility] [address] [id number] [place] [address] Feb, [facility] [place] [facility] [address] [id number] [place] [address] Feb, [facility] [place] [facility] [address] [id number] [place] [address] Feb, [facility] [place] [facility] [address] [id number] [place] [address] Feb, [facility] [place] [facility] [address] [id number] [place] [address] Feb, [facility] [place] [facility] [address] [id number] [place] [address] Feb, [facility] [place] [facility] [address] [id number] [place] [address] Feb, [facility] [place] [facility] [address] [id number] [place] [address] Feb, [facility] [place] [facility] [address] [id number] [place] [address] Jan, [facility] [place] [facility] [address] [id number] [place] [address] Jan, [facility] [place] [facility] [address] [id number] [place] [address] Jan, [facility] [place] [facility] [address] [id number] [place] [address] Jan, [facility] [place] [facility] [address] [id number] [place] [address] Jan, [facility] [place] [facility] [address] [id number] [place] [address] Jan, [facility] [place] [facility] [address] [id number] [place] [address] Jan, [facility] [place] [facility] [address] [id number] [place] [address] Jan, [facility] [place] [facility] [address] [id number] [place] [address] Jan, [facility] [place] [facility] [address] [id number] [place] [address] Jan, [facility] [place] [facility] [address] [id number] [place] [address] Dec, [facility] [place] [facility] [address] [id number] [place] [address] Dec, [facility] [place] [facility] [address] [id number] [place] [address] Dec, [facility] [place] [facility] [address] [id number] [place] [address] Dec, [facility] [place] [facility] [address] [id number] [place] [address] Dec, [facility] [place] [facility] [address] [id number] [place] [address] Dec, [facility] [place] [facility] [address] [id number] [place] [address] Dec, [facility] [place] [facility] [address] [id number] [place] [address] Dec, [facility] [place] [facility] [address] [id number] [place] [address] Nov, [facility] [place] [facility] [address] [id number] [place] [address] Nov, [facility] [place] [facility] [address] [id number] [place] [address] Nov, [facility] [place] [facility] [address] [id number] [place] [address] Nov, [facility] [place] [facility] [address] [id number] [place] [address] Nov, [facility] [place] [facility] [address] [id number] [place] [address] Nov, [facility] [place] [facility] [address] [id number] [place] [address] Nov, [facility] [place] [facility] [address] [id number] [place] [address] Nov, [facility] [place] [facility] [address] [id number] [address] Nov, [facility] [address] [id number] [place] [address] Nov, [facility] [place] [facility] [address] [id number] [place] [address] Nov, [facility] [address] [id number] [place] [address] Nov, [facility] [place] [facility] [address] [id number] [place] [address] Nov, [facility] [address] [id number] [place] [address] Oct, [facility] [place] [facility] [address] [id number] [place] [address] Oct, [facility] [address] [id number] [place] [address] Oct, [facility] [place] [facility] [address] [id number] [place] [address] Oct, [facility] [address] [id number] [place] [address] Oct, [facility] [place] [facility] [address] [id number] [place] [address] Oct, [facility] [address] [id number] [place] [address] 18 Oct, 2013 [facility] [place] [facility] [address] [id number] [place] [address] 18 Oct, 2013 [facility] [place] [facility] [address] [id number] [place] [address] 17 Oct, 2013 [facility] [place] [facility] [address] [id number] [place] [address] 17 Oct, 2013 [facility] [place] [facility] [address] [id number] [place] [address] Oct, [facility] [place] [facility] [address] [id number] [place] [address] Oct, [facility] [address] [id number] [place] [address] Oct, [facility] [place] [facility] [address] [id number] [place] [address] Oct, [facility] [place] [facility] [address] [id number] [place] [address] Sep, [facility] [place] [facility] [address] [id number] [place] [address] Sep, [facility] [place] [facility] [address] [id number] [place] [address] Sep, [facility] [place] [facility] [address] [id number] [place] [address] Sep, [facility] [place] [facility] [address] [id number] [place] [address] Sep, [facility] [place] [facility] [address] [id number] [place] [address] Sep, [facility] [place] [facility] [address] [id number] [place] [address] Sep, [facility] [place] [facility] [address] [id number] [place] [address] Sep, [facility] [place] [facility] [address] [id number] [place] [address] Sep, [facility] [place] [facility] [address] [id number] [place] [address] Sep, [facility] [place] [facility] [address] [id number] [place] [address] Aug, [facility] [place] [facility] [address] [id number] [place] [address] Aug, [facility] [place] [facility] [address] [id number] [place] [address] Aug, [facility] [place] [facility] [address] [id number] [place] [address] 24 Aug, 2013 [facility] [place] [facility] [address] [id number] [place] [address] Aug, [facility] [place] [facility] [address] [id number] [place] [address] Aug, [facility] [place] [facility] [address] [id number] [place] [address] Aug, [facility] [place] [facility] [address] [id number] [place] [address] Aug, [facility] [place] [facility] [address] [id number] [address] Aug, [facility] [place] [facility] [address] [id number] [place] [address] Aug, [facility] [place] [facility] [address] [id number], [place] [address] 18 Aug, 2013 [facility] [place] [facility] [address] [id number] [place] [address] 18 Aug, 2013 [facility] [place] [facility] [address] [id number] [address] 18 Aug, 2013 [facility] [place] [facility] [address] [id number] [address] 18 Aug, 2013 [facility] [place] [facility] [address] [id number] [address] 17 Aug, 2013 [facility] [place] [facility] [address] [id number], [place] [address] 14 Aug, 2013 [facility] [place] [facility] [address] [id number] [address] 14 Aug, 2013 [facility] [place] [facility] [address] [id number] [address] Aug, [facility] [place] [facility] [address] [id number] [place] [address] 20 Jul, 2013 [facility] [place] [facility] [address] [id number] [place] [address] 19 Jul, 2013 [facility] [place] [facility] [address] [id number] [place] [address] 18 Jul, 2013 [facility] [place] [facility] [address] [id number] [place] [address] 11 Jul, 2013 [facility] [place] [facility] [address] [id number] [place] [address] 11 Jul, 2013 [facility] [place] [facility] [address] [id number] [place] [address] Jun, [facility] [place] [facility] [address] [id number] [place] [address] Jun, [facility] [place] [facility] [address] [id number] [place] [address] Jun, [facility] [place] [facility] [address] [id number] [place] [address] 15 Jun, 2013 [facility] [place] [facility] [address] [id number] [place] [address] Jun, [facility] [place] [facility] [address] [id number] [place] [address] Jun, [facility] [place] [facility] [address] [id number] [place] [address] Jun, [facility] [place] [facility] [address] [id number] [place] [address] Jun, [facility] [place] [facility] [address] [id number] [place] [address] Jun, [facility] [place] [facility] [address] [id number] [place] [address] Jun, [facility] [place] [facility] [address] [id number] [place] [address] May, [facility] [place] [facility] [address] [id number] [place] [address] May, [facility] [place] [facility] [address] [id number] [place] [address] May, [facility] [place] [facility] [address] [id number] [place] [address] May, [facility] [place] [facility] [address] [id number] [place] [address] May, [facility] [place] [facility] [address] [id number] [place] [address] 16 May, 2013 [facility] [place] [facility] [address] [id number] [place] [address] May, [facility] [place] [facility] [address] [id number] [place] [address] May, [facility] [place] [facility] [address] [id number] [place] [address] May, [facility] [place] [facility] [address] [id number] [place] [address] Apr, [facility] [place] [facility] [address] [id number] [place] [address] Apr, [facility] [place] [facility] [address] [id number] [place] [address] Apr, [facility] [place] [facility] [address] [id number] [place] [address] Apr, [facility] [place] [facility] [address] [id number] [place] [address] Apr, [facility] [place] [facility] [address] [id number] [place] [address] Apr, [facility] [place] [facility] [address] [id number] [place] [address] Apr, [facility] [place] [facility] [address] [id number] [place] [address] March, [facility] [place] [facility] [address] [id number] [place] [address] Feb, [facility] [place] [facility] [address] [id number] [place] [address] Feb, [facility] [place] [facility] [address] [id number] [place] [address] Feb, [facility] [place] [facility] [address] [id number] [place] [address] Jan, [facility] [place] [facility] [address] [id number] [place] [address] Jan, [facility] [place] [facility] [address] [id number] [place] [address] Jan, [facility] [place] [facility] [address] [id number] [place] [address] Jan, [facility] [place] [facility] [address] [id number] [place] [address] Jan, [facility] [place] [facility] [address] [id number] [place] [address] Jan, [facility] [place] [facility] [address] [id number] [place] [address] Jan, [facility] [place] [facility] [address] [id number] [place] [address] Jan, [facility] [place] [facility] [address] [id number] [place] [address] 28 Dec, 2012 [facility] [place] [facility] [address] [id number] [place] [address] Dec, [facility] [place] [facility] [address] [id number] [place] [address] Dec, [facility] [place] [facility] [address] [id number] [place] [address] Dec, [facility] [place] [facility] [address] [id number] [place] [address] 07 Dec, 2012 [facility] [address] [id number] [place] [address] 06 Dec, 2012 [facility] [place] [facility] [address] [id number] [place] [address] 05 Dec, 2012 [facility] [place] [facility] [address] [id number] [place] [address] Nov, [facility] [place] [facility] [address] [id number] [place] [address] 24 Nov, 2012 [facility] [place] [facility] [address] [id number] [place] [address] 18 Nov, 2012 [facility] [address] [id number] [place] [address] 15 Nov, 2012 [facility] [address] [id number] [place] [address] Nov, [facility] [address] [id number] [place] [address] Nov, [facility] [address] [id number] [place] [address] Nov, [facility] [address] [id number] [place] [address] Oct, [facility] [address] [id number] [place] [address] Oct, [facility] [place] [facility] [address] [id number] [place] [address] Oct, [facility] [place] [facility] [address] [id number] [place] [address] Oct, [facility] [place] [facility] [address] [id number] [place] [address] 17 Oct, 2012 [facility] [place] [facility] [address] [id number] [place] [address] Oct, [facility] [place] [facility] [address] [id number] [place] [address] Oct, [facility] [place] [facility] [address] [id number] [place] [address] Oct, [facility] [place] [facility] [address] [facility] [id number] [place] [address] Oct, [facility] [place] [facility] [address] [id number] [place] [address] Oct, [facility] [place] [facility] [address] [id number] [place] [address] Oct, [facility] [place] [facility] [address] [id number] [place] [address] Oct, [facility] [place] [facility] [address] [facility] [id number] [place] [address] Sep, [facility] [place] [facility] [address] [id number] [address] Sep, [facility] [place] [facility] [address] [id number], [place] [address] Sep, [facility] [place] [facility] [address] [facility] [id number] [address] Sep, [facility] [place] [facility] [address] [id number][place] [address] Sep, [facility] [place] [facility] [address] [id number], [place] [address] Sep, [facility] [place] [facility] [address] [id number], [place] [address] Sep, [facility] [place] [facility] [address] [facility] [id number], [place] [address] Sep, [facility] [place] [facility] [address] [facility] [id number][place] [address] Sep, [facility] [place] [facility] [address] [id number] [place] [address] Sep, [facility] [place] [facility] [address] [id number] [place] [address] Sep, [facility] [place] [facility] [address] [id number] [place] [address] Aug, [facility] [place] [facility] [address] [id number] [place] [address] Aug, [facility] [place] [facility] [address] [id number] [place] [address] Aug, [facility] [place] [facility] [address] [id number] [place] [address] Aug, [facility] [place] [facility] [address] [id number] [place] [address] Aug, [facility] [place] [facility] [address] [id number] [place] [address] Aug, [facility] [place] [facility] [address] [id number] [place] [address] Aug, [facility] [place] [facility] [address] [id number] [place] [address] Aug, [facility] [place] [facility] [address] [facility] [id number] [place] [address] Aug, [facility] [place] [facility] [address] [id number] [place] [address] Aug, [facility] [place] [facility] [address] [id number] [place] [address] 22 Jul, 2012 [facility] [place] [facility] [address] [id number] [place] [address] 20 Jul, 2012 [facility] [place] [facility] [address] [id number] [place] [address] 10 Jul, 2012 [facility] [place] [facility] [address] [id number] [place] [address] Jul, [facility] [place] [facility] [address] [id number] [place] [address] Jun, [facility] [place] [facility] [address] [id number] [place] [address] Jun, [facility] [place] [facility] [address] [id number] [place] [address] Jun, [facility] [place] [facility] [address] [id number] [place] [address] Jun, [facility] [place] [facility] [address] [id number] [place] [address] Jun, [facility] [place] [facility] [address] [id number] [place] [address] Jun, [facility] [place] [facility] [address] [id number] [place] [address] Jun, [facility] [place] [facility] [address] [id number] [place] [address] May, [facility] [place] [facility] [address] [id number] [place] [address] May, [facility] [place] [facility] [address] [id number] [place] [address] May, [facility] [place] [facility] [address] [id number] [place] [address] May, [facility] [place] [facility] [address] [id number] [place] [address] May, [facility] [place] [facility] [address] [id number] [place] [address] Apr, [facility] [place] [facility] [address] [id number] [place] [address] Apr, [facility] [place] [facility] [address] [id number] [place] [address] Apr, [facility] [place] [facility] [address] [id number] [place] [address] Apr, [facility] [address] [id number] [place] [address] Apr, [facility] [place] [facility] [address] [id number] [place] [address] March, [facility] [place] [facility] [address] [id number] [place] [address] March, [facility] [place] [facility] [address] [id number] [place] [address] March, [facility] [place] [facility] [address] [id number] [place] [address] March, [facility] [place] [facility] [address] [id number] [place] [address] March, [facility] [address] [id number] [place] [address] March, [facility] [place] [facility] [address] [id number] [place] [address] March, [facility] [place] [facility] [address] [id number] [place] [address] March, [facility] [place] [facility] [address] [id number] [place] [address] March, [facility] [place] [facility] [address] [id number] [place] [address] March, [facility] [place] [facility] [address] [id number] [place] [address] Feb, [facility] [place] [facility] [address] [id number] [place] [address] Feb, [facility] [place] [facility] [address] [id number] [place] [address] Feb, [facility] [place] [facility] [address] [id number] [place] [address] Feb, [facility] [place] [facility] [address] [id number] [place] [address] 17 Feb, 2012 [facility] [address] [id number] [place] [address] 17 Feb, 2012 [facility] [place] [facility] [address] [id number] [place] [address] Feb, [facility] [address] [id number] [place] [address] Feb, [facility] [address] [id number] [place] [address] Feb, [facility] [address] [id number] [place] [address] 08 Jan, 2012 [facility] [address] [id number] [place] [address] Jan, [facility] [address] [id number] [place] [address] Jan, [facility] [address] [id number] [place] [address] Jan, [facility] [address] [id number] [place] [address] Dec, [facility] [address] [id number] [place] [address] Dec, [facility] [address] [id number] [place] [address] Nov, [facility] [address] [id number] [place] [address] Nov, [facility] [place] [facility] [address] [id number] [place] [address] Nov, [facility] [place] [facility] [address] [id number] [place] [address] Nov, [facility] [place] [facility] [address] [id number] [place] [address] Nov, [facility] [address] [facility] [id number] [address] Oct, [facility] [address] [facility] [id number] [address] Oct, [facility] [id number] [address] Oct, [facility] [id number] [address] Oct, [facility] [address] [facility] [id number], [place] [address] Oct, [facility] [id number] [place] [address] Oct, [facility] [id number], [place] [address] Oct, [facility] [id number] [address] Oct, [facility] [address] [id number], [place] [address] Sep, IMMUNIZATIONS No Known Immunizations SOCIAL HISTORY Never Assessed REASON FOR VISIT [facility] PLAN OF CARE VITAL SIGNS MEDICATIONS Unknown Medications RESULTS No Results PROCEDURES No Known procedures INSTRUCTIONS MEDICATIONS ADMINISTERED No Known Medications MEDICAL (GENERAL) HISTORY Type Description Date 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
--- OUTSIDE RECORDS SUMMARY | 2019-04-16 15:37 | XMS REPORT ---
Author Author Migration, Doctor Organization [facility] Address Unknown Phone Unavailable Care Team Providers Care Hyperbaric Nurse Name Role Phone Migration, Doctor Unavailable Unavailable PROBLEMS Type Condition ICD9-CM Code [id number] Code Onset Dates Condition Status SNOMED Code Problem Coronary artery disease I25.10 Active 45370246 Problem Hypertension I10 Active 50166369 Problem Other chronic pain G89.29 Active 40301333 Problem Hyperlipidemia E78.5 Active 27631849 Problem Type 2 diabetes mellitus without complication, without long-term current use of insulin E11.9 Active 982070669 Problem Low back pain M54.5 Active 287064431 Problem Pharyngeal dysphagia R13.13 Active 40099665526074 Problem Anxiety F41.9 Active 52030070 Problem Peripheral vascular disease I73.9 Active 945948884 Problem Suprapubic catheter Z93.59 Active 946330227 Problem Reactive depression F32.9 Active 35463067 Problem Neurogenic bladder N31.9 Active 804446770 Problem Ventral hernia without obstruction or gangrene K43.9 Active 050963183 Problem Insomnia G47.00 Active 489254102 Problem Paroxysmal atrial fibrillation I48.0 Active 257151401 Problem 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 [address] [facility] [id number], [place] [address] Feb, Other chronic pain G89.29 Via [facility] [address] [place] [id number] Feb, Neurogenic bladder N31.9 and Suprapubic catheter Z93.59 [facility] [address] [facility] [id number] [place] [address] Jan, Anxiety F41.9 [facility] [address] [place] [address] Dec, Anxiety F41.9 [facility] [id number] [place] [address] Dec, Other chronic pain G89.[address] [facility] [id number] [place] [address] Dec, Via [facility] [address] [place] [id number] Dec, Neurogenic bladder N31.9 and Suprapubic catheter Z93.59 [facility] [id number] [place] [address] Nov, Other chronic pain G89.[address] [facility] [id number] [place] [address] Nov, Via [facility] [address] [place] [id number] Nov, Suprapubic catheter Z93.59 [facility] [id number] [place] [address] Oct, Other chronic pain G89.[address] [facility] [id number] [place] [address] Oct, [facility] [id number] [place] [address] Oct, Suprapubic catheter Z93.59 [facility] [id number] [place] [address] Oct, Via [facility] [address] [place] [id number] Oct, [facility] [address] [place] [address] Oct, Anxiety F41.9 [facility] [address] [id number] [address] 04 Oct, 2018 Anxiety F41.9 Via [facility] [address] [place] [id number] Oct, Other chronic pain G89.29 [facility] [address] [id number], [place] [address] 14 Sep, 2018 Other chronic pain G89.29 Via [facility] [address] [place] [id number] Sep, Suprapubic catheter Z93.[address] [facility] [id number] [place] [address] Sep, [facility] [id number] [place] [address] Sep, [facility] [address] [facility] [id number] [place] [address] Sep, Via [facility] [employer] [address] [place] [id number] Aug, Cystitis N30.90 [facility] [address] [id number] [place] [address] Aug, [facility] [address] [id number] [place] [address] Aug, Other chronic pain G89.29 [facility] [address] [id number] [place] [address] Aug, Via [facility] [address] [place] [id number] Aug, Encounter for suprapubic catheter care Z43.5 [facility] [address] [id number] [place] [address] Jul, Via [facility] [address] [place] [id number] Jul, [facility] [address] [id number] [place] [address] Jul, Other chronic pain G89.29 [facility] [address] [id number] [address] Jul, [facility] [address] [facility] [id number], [place] [address] Jul, Via [facility] [facility] [address] [place] [id number] Jun, 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 [facility] [id number] [place] [address] Jun, Other chronic pain G89.29 [facility] [id number] [place] [address] Jun, Via [employer] [facility] [address] [place] [id number] May, Anxiety F41.9 ; Type 2 diabetes mellitus without complication, without long-term current use of insulin E11.9 ; Hypertension I10 ; Low back pain M54.5 ; Paroxysmal atrial fibrillation I48.0 and 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 [facility] [address] [id number] [address] May, Other chronic pain G89.29 Via [employer] [facility] [address] [place] [id number] May, Low back pain M54.5 [facility] [address] [id number] [address] May, [facility] [id number] [place] [address] Apr, Other chronic pain G89.29 [facility] [address] [address] Apr, [place] [address] [place] [address] Apr, Via [employer] [facility] [address] [place] [id number] Apr, Closed compression fracture of L3 lumbar vertebra with routine healing, subsequent encounter S32.030D [facility] [employer] [facility] [address] [place] [id number] 14 Apr, 2018 Low back pain M54.5 Via [employer] [facility] [address] [place] [id number] 12 Apr, [address] [facility] [address] [facility] [id number], [place] [address] March, [facility] [address] [facility] [id number] [place] [address] March, Other chronic pain G89.29 [facility] [address] [id number] [place] [address] March, [facility] [address] [facility] [id number] [place] [address] March, [facility] [id number] [place] [address] Feb, [facility] [address] [facility] [id number] [place] [address] Feb, Other chronic pain G89.29 Via [employer] [address] [place] [address] Feb, Other chronic pain G89.[address] [facility] [address] [id number] [address] Feb, [facility] [address] [facility] [id number] [address] Jan, [facility] [address] [facility] [id number] [address] Jan, [facility] [address] [facility] [id number] [place] [address] [address] Jan, 2018 [facility] [address] [facility] [id number], [place] [address] [address], [address] [facility] [address] 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 [address] [facility] [id number], [place] [address] Nov, [facility] [address] [id number][place] [id number] Nov, Anxiety F41.9 Via [employer] [facility] [address] [facility] [address] [place] [address] Nov, Status post surgery Z98.890 ; Confused R41.0 ; Anxiety F41.9 and Other chronic pain G89.29 [facility] [address] [id number][place] [address] Nov, Other chronic pain G89.29 [facility] [address] [facility] [id number], [place] [address] Oct, [facility] [address] [id number][place] [id number] Oct, Other chronic pain G89.29 [facility] [address] [facility] [id number], [place] [address] Oct, Anxiety F41.9 [facility] [address] [id number][place] [address] Sep, Other chronic pain G89.29 [facility] [address] [id number][place] [id number] Sep, Via [employer] [address] [place] [id number] Aug, Dysuria R30.[address] [facility] [address] [place] [address] Aug, [facility] [id number] [place] [id number] Aug, Other chronic pain G89.29 [facility] [id number] [place] [address] Jul, Other chronic pain G89.29 [facility] [id number] [place] [id number] Jun, [facility] [id number] [place] [id number] Jun, Other chronic pain G89.29 [facility] [id number] [place] [address] Jun, [facility] [id number] [place] [address] May, Other chronic pain G89.29 [facility] [id number] [place] [address] Apr, Other chronic pain G89.29 Via [employer] [facility] [address] [place] [id number] Apr, Reactive depression F32.9 and Pharyngeal dysphagia R13.13 [facility] [address] [place] [address] Apr, Urinary tract infection without hematuria, site unspecified N39.0 [facility] [address] [place] [address] March, Other chronic pain G89.29 [facility] [address] [place] [address] Feb, Other chronic pain G89.29 [facility] [id number] [place] [address] Feb, [facility] [id number] [id number] Feb, Via [facility] [address] [place] [id number] Feb, Dysuria R30.0 and Ventral hernia without obstruction or gangrene K43.9 [facility] [address] [facility] [id number] [place] [address] Jan, Other chronic pain G89.29 [facility] [id number] [place] [id number] Dec, Other chronic pain G89.29 [facility] [address] [place] [address] Nov, Other chronic pain G89.29 Via [facility] [address] [place] [id number] Nov, Lymphadenitis I88.9 [facility] [address] [place] [address] Nov, Other chronic pain G89.29 [facility] [address] [place] [address] Nov, [facility] [id number] [place] [id number] Nov, Other chronic pain G89.29 Via [facility] [address] [place] [id number] Oct, Low back pain M54.5 ; Hypertension I10 and Type 2 diabetes mellitus without complication, without long-term current use of insulin E11.9 [facility] [address] [facility] [id number], [place] [address] Oct, [facility] [id number] [place] [address] Oct, [facility] [address] [id number] [address] Oct, [facility] [address]00565100[place] [address] Oct, [facility] [address] [facility] [id number], [place] [address] Sep, [facility] [address] [facility] [id number], [place] [address] Sep, [facility] [address]00565100[place], [place] [address] Aug, Other chronic pain G89.29 [facility] [address] [facility] [id number], [place] [address] Jul, [facility] [address] [facility] [id number] [place] [address] Jul, [facility] [address]00565100[place] [address] Jul, [facility] [address]00565[place] [address] Jun, [facility] [address] [id number] [address] Jun, [facility] [address] [place] [id number] Jun, Low back pain M54.5 ; Other chronic pain G89.29 and Coronary artery disease I25.10 [facility] [address] [id number] [address] Jun, [facility] [address] [id number] [address] May, [facility] [address] [id number], [place] [address] May, [facility] [address] [id number], [place] [address] May, Other chronic pain G89.29 [facility] [address] [id number] [address] May, [facility] [address]00565100[place], [place] [address] Apr, [facility] [address] [id number], [place] [address] Apr, Acute cystitis without hematuria N30.00 [facility] [address]00565100[place], [place] [address] 16 Apr, 2016 Acute cystitis without hematuria N30.00 ; Coronary artery disease I25.10 ; Low back pain M54.5 and Other chronic pain G89.29 [facility] [address]65100[place], [place] [address] Apr, Other chronic pain G89.29 [facility] [address] [id number], [place] [address] March, Other chronic pain G89.29 [facility] [id number] [place] [address] Feb, [facility] [address] [place] [address] Feb, Arthritis M19.90 [facility] [id number] [place] [address] Feb, [facility] [address]00565100[place] [address] Jan, [facility] [address]00565100[place], [place] [address] Jan, [facility] [address]00565100[place], [place] [address] Jan, Other chronic pain G89.29 [facility] [address]65100[place], [place] [address] Jan, Hypertension I10 ; Coronary artery disease I25.[address] [facility] [address]00565100[place], [place] [address] Jan, [facility] [address] [facility] [id number], [place] [address] Dec, Right hip pain M25.551 [facility] [address] [facility] [id number], [place] [address] Dec, [facility] [address] [facility] [id number] [address] Dec, [facility] [address] [facility] [id number] [place] [address] Dec, [facility] [address] [facility] [id number] [place] [address] Dec, Other chronic pain G89.29 [facility] [address]65[address], [place] [address] Dec, [facility] [address] [place] [address] Nov, [facility] [address]00565100[place], [place] [address] Nov, Other chronic pain G89.29 [facility] [address]00565100[place], [place] [address] Nov, Right hip pain M25.551 and Coronary artery disease I25.10 [facility] [address]00565100[place], [place] [address] Nov, Other chronic pain G89.29 [facility] [address]00565100[place], [place] [address] Oct, [facility] [address]00565100[place] [address] Oct, [facility] [address]00565100[place] [address] Sep, [facility] [address]65[address], [place] [address] Sep, [facility] [address] [facility] [id number], [place] [address] Aug, [facility] [id number] [place] [address] Aug, Hypertension I10 ; Coronary artery disease I25.[address] [facility] [address] [id number] [address] Jun, [facility] [id number] [place] [address] Jun, Essential hypertension, benign 401.1 ; Other chronic pain 338.29 and Chronic airway obstruction, not elsewhere classified [address] [facility] [address]00565100[place], [place] [address] Jun, [facility] [address]00565100[place], [place] [address] Jun, [facility] [address]00565100[place], [place] [address] Jun, [facility] [address]00565[address] [address] May, [facility] [address]00565100[place] [address] May, [facility] [address]00565100[place] [address] Apr, [facility] [address] [id number] [address] Apr, [facility] [address] [id number] [place] [address] Apr, [facility] [address] [id number] [address] March, [facility] [address] [id number] [place] [address] March, [facility] [address] [id number] [place] [address] March, [facility] [address] [id number] [place] [address] March, [facility] [address] [id number] [place] [address] March, Sialadenitis 527.2 [facility] [address] [id number] [place] [address] Feb, [facility] [address] [id number] [place] [address] Feb, [facility] [address] [id number] [place] [address] Feb, [facility] [address] [id number] [place] [address] Feb, [facility] [address] [facility] [id number] [place] [address] Feb, [facility] [address] [id number] [place] [address] Jan, [facility] [address] [id number] [place] [address] Jan, [facility] [address] [facility] [id number] [place] [address] Jan, [facility] [address] [facility] [id number] [place] [address] Jan, [facility] [address] [id number] [place] [address] Jan, [facility] [address] [id number] [place] [address] Jan, [facility] [address] [id number] [place] [address] Dec, [facility] [address] [id number] [place] [address] Dec, [facility] [place] [facility] [address] [id number] [place] [address] Dec, [facility] [place] [facility] [address] [id number] [place] [address] Dec, [facility] [place] [facility] [address] [id number] [place] [address] Dec, [facility] [place] [facility] [address] [id number] [place] [address] Dec, [facility] [place] [facility] [address] [id number] [place] [address] Nov, [facility] [place] [facility] [address] [id number] [place] [address] Nov, [facility] [place] [facility] [address] [id number] [place] [address] Nov, [facility] [place] [facility] [address] [id number] [place] [address] Nov, [facility] [place] [facility] [address] [id number] [place] [address] Nov, [facility] [place] [facility] [address] [id number] [place] [address] Nov, [facility] [place] [facility] [address] [id number] [address] Nov, [facility] [place] [facility] [address] [id number], [place] [address] Nov, [facility] [place] [facility] [address] [id number], [place] [address] Nov, [facility] [place] [facility] [address] [id number], [place] [address] Nov, [facility] [place] [facility] [address] [id number] [place] [address] Nov, [facility] [place] [facility] [address] [id number] [place] [address] Nov, [facility] [place] [facility] [address] [id number] [place] [address] Nov, [facility] [place] [facility] [address] [id number] [place] [address] Nov, [facility] [place] [facility] [address] [id number] [place] [address] Oct, [facility] [place] [facility] [address] [id number] [place] [address] Oct, [facility] [place] [facility] [address] [id number] [place] [address] Oct, [facility] [place] [facility] [address] [id number] [place] [address] Oct, [facility] [place] [facility] [address] [id number] [place] [address] Oct, [facility] [place] [facility] [address] [id number] [place] [address] Oct, [facility] [place] [facility] [address] [id number] [place] [address] Oct, [facility] [place] [facility] [address] [id number] [place] [address] Oct, [facility] [place] [facility] [address] [id number] [place] [address] Oct, [facility] [place] [facility] [address] [id number] [place] [address] Sep, [facility] [place] [facility] [address] [id number] [place] [address] Sep, [facility] [place] [facility] [address] [id number] [place] [address] Sep, [facility] [place] [facility] [address] [id number] [place] [address] Sep, [facility] [place] [facility] [address] [id number] [place] [address] Sep, [facility] [place] [facility] [address] [id number] [place] [address] Sep, [facility] [place] [facility] [address] [id number] [place] [address] Sep, [facility] [place] [facility] [address] [id number] [place] [address] Sep, [facility] [place] [facility] [address] [id number] [place] [address] Sep, [facility] [place] [facility] [address] [id number] [place] [address] Sep, [facility] [place] [facility] [address] [id number] [place] [address] Sep, [facility] [place] [facility] [address] [id number] [place] [address] Sep, [facility] [place] [facility] [address] [id number] [place] [address] Aug, [facility] [place] [facility] [address] [id number], [place] [address] Aug, [facility] [place] [facility] [address] [id number][place] [address] Aug, [facility] [place] [facility] [address] [id number], [place] [address] Aug, [facility] [place] [facility] [address] [id number] [place] [address] Aug, [facility] [place] [facility] [address] [id number][place] [address] Aug, [facility] [place] [facility] [address] [id number] [place] [address] Aug, [facility] [place] [facility] [address] [id number] [place] [address] 17 Aug, 2014 [facility] [place] [facility] [address] [id number] [place] [address] 30 Jul, 2013 [facility] [place] [facility] [address] [id number] [place] [address] 30 Jul, 2013 [facility] [place] [facility] [address] [id number] [place] [address] 30 Jul, 2013 [facility] [place] [facility] [address] [id number] [place] [address] 30 Jul, 2013 [facility] [place] [facility] [address] [id number] [place] [address] 25 Jul, 2013 [facility] [place] [facility] [address] [id number] [place] [address] 25 Jul, 2013 [facility] [place] [facility] [address] [id number] [place] [address] 15 Jul, 2013 [facility] [place] [facility] [address] [id number] [place] [address] 15 Jul, 2013 [facility] [place] [facility] [address] [id number] [place] [address] 11 Jul, 2013 [facility] [place] [facility] [address] [id number] [place] [address] 11 Jul, 2013 [facility] [place] [facility] [address] [id number] [place] [address] Jun, [facility] [place] [facility] [address] [id number] [place] [address] Jun, [facility] [place] [facility] [address] [id number] [place] [address] Jun, [facility] [place] [facility] [address] [id number] [place] [address] Jun, [facility] [place] [facility] [address] [id number] [place] [address] Jun, [facility] [place] [facility] [address] [id number] [place] [address] Jun, [facility] [place] [facility] [address] [id number] [place] [address] Jun, [facility] [place] [facility] [address] [id number] [place] [address] Jun, [facility] [place] [facility] [address] [id number] [place] [address] Jun, [facility] [place] [facility] [address] [id number] [place] [address] Jun, [facility] [place] [facility] [address] [id number] [place] [address] Jun, [facility] [place] [facility] [address] [id number] [place] [address] Jun, [facility] [place] [facility] [address] [id number] [place] [address] Jun, [facility] [place] [facility] [address] [id number] [place] [address] Jun, [facility] [place] [facility] [address] [id number] [place] [address] Jun, [facility] [place] [facility] [address] [id number] [place] [address] Jun, [facility] [place] [facility] [address] [id number] [place] [address] Jun, [facility] [place] [facility] [address] [id number] [place] [address] Jun, [facility] [place] [facility] [address] [id number] [place] [address] Jun, [facility] [place] [facility] [address] [id number] [place] [address] Jun, [facility] [place] [facility] [address] [id number] [place] [address] Jun, [facility] [place] [facility] [address] [id number] [place] [address] Jun, [facility] [place] [facility] [address] [id number] [place] [address] May, [facility] [place] [facility] [address] [id number] [place] [address] May, [facility] [place] [facility] [address] [id number] [place] [address] May, [facility] [place] [facility] [address] [id number] [place] [address] May, [facility] [place] [facility] [address] [id number] [place] [address] May, [facility] [place] [facility] [address] [id number] [place] [address] May, [facility] [place] [facility] [address] [id number] [place] [address] May, [facility] [place] [facility] [address] [id number] [place] [address] May, [facility] [place] [facility] [address] [id number] [place] [address] May, [facility] [place] [facility] [address] [id number] [place] [address] May, [facility] [place] [facility] [address] [id number] [place] [address] May, [facility] [place] [facility] [address] [id number] [place] [address] May, [facility] [place] [facility] [address] [id number] [place] [address] May, [facility] [place] [facility] [address] [id number] [place] [address] Apr, [facility] [place] [facility] [address] [id number] [place] [address] Apr, [facility] [place] [facility] [address] [id number] [place] [address] Apr, [facility] [place] [facility] [address] [id number] [place] [address] Apr, [facility] [place] [facility] [address] [id number] [place] [address] Apr, [facility] [place] [facility] [address] [id number] [place] [address] Apr, [facility] [place] [facility] [address] [id number] [place] [address] Apr, [facility] [place] [facility] [address] [id number] [place] [address] Apr, [facility] [place] [facility] [address] [id number] [place] [address] Apr, [facility] [place] [facility] [address] [id number] [place] [address] March, [facility] [place] [facility] [address] [id number] [place] [address] March, [facility] [place] [facility] [address] [id number] [place] [address] March, [facility] [place] [facility] [address] [id number] [place] [address] March, [facility] [place] [facility] [address] [id number] [place] [address] March, [facility] [place] [facility] [address] [id number] [place] [address] March, [facility] [place] [facility] [address] [id number] [place] [address] March, [facility] [place] [facility] [address] [id number] [place] [address] March, [facility] [address] [id number] [place] [address] March, [facility] [place] [facility] [address] [id number] [place] [address] March, [facility] [place] [facility] [address] [id number] [place] [address] March, [facility] [place] [facility] [address] [id number] [place] [address] March, [facility] [place] [facility] [address] [id number] [place] [address] March, [facility] [place] [facility] [address] [id number] [place] [address] March, [facility] [place] [facility] [address] [id number] [place] [address] March, [facility] [place] [facility] [address] [id number] [place] [address] March, [facility] [place] [facility] [address] [id number] [place] [address] March, [facility] [place] [facility] [address] [id number] [place] [address] March, [facility] [place] [facility] [address] [id number] [place] [address] March, [facility] [place] [facility] [address] [id number] [place] [address] March, [facility] [place] [facility] [address] [id number] [place] [address] Feb, [facility] [place] [facility] [address] [id number] [place] [address] Feb, [facility] [place] [facility] [address] [id number] [place] [address] Feb, [facility] [place] [facility] [address] [id number] [place] [address] Feb, [facility] [place] [facility] [address] [id number] [place] [address] Feb, [facility] [place] [facility] [address] [id number] [place] [address] Feb, [facility] [place] [facility] [address] [id number] [place] [address] Feb, [facility] [place] [facility] [address] [id number] [place] [address] Feb, [facility] [place] [facility] [address] [id number] [place] [address] Jan, [facility] [place] [facility] [address] [id number] [place] [address] Jan, [facility] [place] [facility] [address] [id number] [place] [address] Jan, [facility] [place] [facility] [address] [id number] [place] [address] Jan, [facility] [place] [facility] [address] [id number] [place] [address] Jan, [facility] [place] [facility] [address] [id number] [place] [address] Jan, [facility] [place] [facility] [address] [id number] [place] [address] Jan, [facility] [place] [facility] [address] [id number] [place] [address] Jan, [facility] [place] [facility] [address] [id number] [place] [address] Jan, [facility] [place] [facility] [address] [id number] [place] [address] Jan, [facility] [place] [facility] [address] [id number] [place] [address] Dec, [facility] [place] [facility] [address] [id number] [place] [address] Dec, [facility] [place] [facility] [address] [id number] [place] [address] Dec, [facility] [place] [facility] [address] [id number] [place] [address] Dec, [facility] [place] [facility] [address] [id number] [place] [address] Dec, [facility] [place] [facility] [address] [id number] [place] [address] Dec, [facility] [place] [facility] [address] [id number] [place] [address] Dec, [facility] [place] [facility] [address] [id number] [place] [address] Dec, [facility] [place] [facility] [address] [id number] [place] [address] Nov, [facility] [place] [facility] [address] [id number] [place] [address] Nov, [facility] [place] [facility] [address] [id number] [place] [address] Nov, [facility] [place] [facility] [address] [id number] [place] [address] Nov, [facility] [place] [facility] [address] [id number] [place] [address] Nov, [facility] [place] [facility] [address] [id number] [place] [address] Nov, [facility] [place] [facility] [address] [id number] [place] [address] Nov, [facility] [place] [facility] [address] [id number] [place] [address] Nov, [facility] [place] [facility] [address] [id number], [place] [address] Nov, [facility] [address] [id number] [place] [address] Nov, [facility] [place] [facility] [address] [id number] [place] [address] Nov, [facility] [address] [id number] [place] [address] Nov, [facility] [place] [facility] [address] [id number] [place] [address] Nov, [facility] [address] [id number] [place] [address] Oct, [facility] [place] [facility] [address] [id number] [place] [address] Oct, [facility] [address] [id number] [place] [address] Oct, [facility] [place] [facility] [address] [id number] [place] [address] Oct, [facility] [address] [id number] [place] [address] Oct, [facility] [place] [facility] [address] [id number] [place] [address] Oct, [facility] [address] [id number] [place] [address] 18 Oct, 2013 [facility] [place] [facility] [address] [id number] [place] [address] 18 Oct, 2013 [facility] [place] [facility] [address] [id number] [place] [address] 17 Oct, 2013 [facility] [place] [facility] [address] [id number] [place] [address] 17 Oct, 2013 [facility] [place] [facility] [address] [id number] [place] [address] Oct, [facility] [place] [facility] [address] [id number] [place] [address] Oct, [facility] [address] [id number] [place] [address] Oct, [facility] [place] [facility] [address] [id number] [place] [address] Oct, [facility] [place] [facility] [address] [id number] [place] [address] Sep, [facility] [place] [facility] [address] [id number] [place] [address] Sep, [facility] [place] [facility] [address] [id number] [place] [address] Sep, [facility] [place] [facility] [address] [id number] [place] [address] Sep, [facility] [place] [facility] [address] [id number] [place] [address] Sep, [facility] [place] [facility] [address] [id number] [place] [address] Sep, [facility] [place] [facility] [address] [id number] [place] [address] Sep, [facility] [place] [facility] [address] [id number] [place] [address] Sep, [facility] [place] [facility] [address] [id number] [place] [address] Sep, [facility] [place] [facility] [address] [id number] [place] [address] Sep, [facility] [place] [facility] [address] [id number] [place] [address] Aug, [facility] [place] [facility] [address] [id number] [place] [address] Aug, [facility] [place] [facility] [address] [id number] [place] [address] Aug, [facility] [place] [facility] [address] [id number] [place] [address] 24 Aug, 2013 [facility] [place] [facility] [address] [id number] [place] [address] Aug, [facility] [place] [facility] [address] [id number] [place] [address] Aug, [facility] [place] [facility] [address] [id number] [place] [address] Aug, [facility] [place] [facility] [address] [id number] [place] [address] Aug, [facility] [place] [facility] [address] [id number], [place] [address] Aug, [facility] [place] [facility] [address] [id number] [place] [address] Aug, [facility] [place] [facility] [address] [id number], [place] [address] 18 Aug, 2013 [facility] [place] [facility] [address] [id number] [place] [address] 18 Aug, 2013 [facility] [place] [facility] [address] [id number], [place] [address] 18 Aug, 2013 [facility] [place] [facility] [address] [id number], [place] [address] 18 Aug, 2013 [facility] [place] [facility] [address] [id number], [place] [address] 17 Aug, 2013 [facility] [place] [facility] [address] [id number], [place] [address] 14 Aug, 2013 [facility] [place] [facility] [address] [id number], [place] [address] 14 Aug, 2013 [facility] [place] [facility] [address] [id number], [place] [address] Aug, [facility] [place] [facility] [address] [id number] [place] [address] 20 Jul, 2013 [facility] [place] [facility] [address] [id number] [place] [address] 19 Jul, 2013 [facility] [place] [facility] [address] [id number] [place] [address] 18 Jul, 2013 [facility] [place] [facility] [address] [id number] [place] [address] 11 Jul, 2013 [facility] [place] [facility] [address] [id number] [place] [address] 11 Jul, 2013 [facility] [place] [facility] [address] [id number] [place] [address] Jun, [facility] [place] [facility] [address] [id number] [place] [address] Jun, [facility] [place] [facility] [address] [id number] [place] [address] Jun, [facility] [place] [facility] [address] [id number] [place] [address] 15 Jun, 2013 [facility] [place] [facility] [address] [id number] [place] [address] Jun, [facility] [place] [facility] [address] [id number] [place] [address] Jun, [facility] [place] [facility] [address] [id number] [place] [address] Jun, [facility] [place] [facility] [address] [id number] [place] [address] Jun, [facility] [place] [facility] [address] [id number] [place] [address] Jun, [facility] [place] [facility] [address] [id number] [place] [address] Jun, [facility] [place] [facility] [address] [id number] [place] [address] May, [facility] [place] [facility] [address] [id number] [place] [address] May, [facility] [place] [facility] [address] [id number] [place] [address] May, [facility] [place] [facility] [address] [id number] [place] [address] May, [facility] [place] [facility] [address] [id number] [place] [address] May, [facility] [place] [facility] [address] [id number] [place] [address] 16 May, 2013 [facility] [place] [facility] [address] [id number] [place] [address] May, [facility] [place] [facility] [address] [id number] [place] [address] May, [facility] [place] [facility] [address] [id number] [place] [address] May, [facility] [place] [facility] [address] [id number] [place] [address] Apr, [facility] [place] [facility] [address] [id number] [place] [address] Apr, [facility] [place] [facility] [address] [id number] [place] [address] Apr, [facility] [place] [facility] [address] [id number] [place] [address] Apr, [facility] [place] [facility] [address] [id number] [place] [address] Apr, [facility] [place] [facility] [address] [id number] [place] [address] Apr, [facility] [place] [facility] [address] [id number] [place] [address] Apr, [facility] [place] [facility] [address] [id number] [place] [address] March, [facility] [place] [facility] [address] [id number] [place] [address] Feb, [facility] [place] [facility] [address] [id number] [place] [address] Feb, [facility] [place] [facility] [address] [id number] [place] [address] Feb, [facility] [place] [facility] [address] [id number] [place] [address] Jan, [facility] [place] [facility] [address] [id number] [place] [address] Jan, [facility] [place] [facility] [address] [id number] [place] [address] Jan, [facility] [place] [facility] [address] [id number] [place] [address] Jan, [facility] [place] [facility] [address] [id number] [place] [address] Jan, [facility] [place] [facility] [address] [id number] [place] [address] Jan, [facility] [place] [facility] [address] [id number] [place] [address] Jan, [facility] [place] [facility] [address] [id number] [place] [address] Jan, [facility] [place] [facility] [address] [id number] [place] [address] 28 Dec, 2012 [facility] [place] [facility] [address] [id number] [place] [address] Dec, [facility] [place] [facility] [address] [id number] [place] [address] Dec, [facility] [place] [facility] [address] [id number] [place] [address] Dec, [facility] [place] [facility] [address] [id number] [place] [address] 07 Dec, 2012 [facility] [address] [id number] [place] [address] 06 Dec, 2012 [facility] [place] [facility] [address] [id number] [place] [address] 05 Dec, 2012 [facility] [place] [facility] [address] [id number] [place] [address] Nov, [facility] [place] [facility] [address] [id number] [place] [address] 24 Nov, 2012 [facility] [place] [facility] [address] [id number] [place] [address] 18 Nov, 2012 [facility] [address] [id number] [place] [address] 15 Nov, 2012 [facility] [address] [id number] [place] [address] Nov, [facility] [address] [id number] [place] [address] Nov, [facility] [address] [id number] [place] [address] Nov, [facility] [address] [id number] [place] [address] Oct, [facility] [address] [id number] [place] [address] Oct, [facility] [place] [facility] [address] [id number] [place] [address] Oct, [facility] [place] [facility] [address] [id number] [place] [address] Oct, [facility] [place] [facility] [address] [id number] [place] [address] 17 Oct, 2012 [facility] [place] [facility] [address] [id number] [place] [address] Oct, [facility] [place] [facility] [address] [id number] [place] [address] Oct, [facility] [place] [facility] [address] [id number] [place] [address] Oct, [facility] [place] [facility] [address] [facility] [id number] [place] [address] Oct, [facility] [place] [facility] [address] [id number] [place] [address] Oct, [facility] [place] [facility] [address] [id number] [place] [address] Oct, [facility] [place] [facility] [address] [id number] [place] [address] Oct, [facility] [place] [facility] [address] [facility] [id number] [place] [address] Sep, [facility] [place] [facility] [address] [id number], [place] [address] Sep, [facility] [place] [facility] [address] [id number], [place] [address] Sep, [facility] [place] [facility] [address] [facility] [id number], [place] [address] Sep, [facility] [place] [facility] [address] [id number], [place] [address] Sep, [facility] [place] [facility] [address] [id number], [place] [address] Sep, [facility] [place] [facility] [address] [id number], [place] [address] Sep, [facility] [place] [facility] [address] [facility] [id number], [place] [address] Sep, [facility] [place] [facility] [address] [facility] [id number], [place] [address] Sep, [facility] [place] [facility] [address] [id number] [place] [address] Sep, [facility] [place] [facility] [address] [id number] [place] [address] Sep, [facility] [place] [facility] [address] [id number] [place] [address] Aug, [facility] [place] [facility] [address] [id number] [place] [address] Aug, [facility] [place] [facility] [address] [id number] [place] [address] Aug, [facility] [place] [facility] [address] [id number] [place] [address] Aug, [facility] [place] [facility] [address] [id number] [place] [address] Aug, [facility] [place] [facility] [address] [id number] [place] [address] Aug, [facility] [place] [facility] [address] [id number] [place] [address] Aug, [facility] [place] [facility] [address] [id number] [place] [address] Aug, [facility] [place] [facility] [address] [facility] [id number] [place] [address] Aug, [facility] [place] [facility] [address] [id number] [place] [place] [address] Aug, [facility] [place] [facility] [address] [id number] [place] [address] 22 Jul, 2012 [facility] [place] [facility] [address] [id number] [place] [address] 20 Jul, 2012 [facility] [place] [facility] [address] [id number] [place] [address] 10 Jul, 2012 [facility] [place] [facility] [address] [id number] [place] [address] Jul, [facility] [place] [facility] [address] [id number] [place] [address] Jun, [facility] [place] [facility] [address] [id number] [place] [address] Jun, [facility] [place] [facility] [address] [id number] [place] [address] Jun, [facility] [place] [facility] [address] [id number] [place] [address] Jun, [facility] [place] [facility] [address] [id number] [place] [address] Jun, [facility] [place] [facility] [address] [id number] [place] [address] Jun, [facility] [place] [facility] [address] [id number] [place] [address] Jun, [facility] [place] [facility] [address] [id number] [place] [address] May, [facility] [place] [facility] [address] [id number] [place] [address] May, [facility] [place] [facility] [address] [id number] [place] [address] May, [facility] [place] [facility] [address] [id number] [place] [address] May, [facility] [place] [facility] [address] [id number] [place] [address] May, [facility] [place] [facility] [address] [id number] [place] [address] Apr, [facility] [place] [facility] [address] [id number] [place] [address] Apr, [facility] [place] [facility] [address] [id number] [place] [address] Apr, [facility] [place] [facility] [address] [id number] [place] [address] Apr, [facility] [address] [id number] [place] [address] Apr, [facility] [place] [facility] [address] [id number] [place] [address] March, [facility] [place] [facility] [address] [id number] [place] [address] March, [facility] [place] [facility] [address] [id number] [place] [address] March, [facility] [place] [facility] [address] [id number] [place] [address] March, [facility] [place] [facility] [address] [id number] [place] [address] March, [facility] [address] [id number] [place] [address] March, [facility] [place] [facility] [address] [id number] [place] [address] March, [facility] [place] [facility] [address] [id number] [place] [address] March, [facility] [place] [facility] [address] [id number] [place] [address] March, [facility] [place] [facility] [address] [id number] [place] [address] March, [facility] [place] [facility] [address] [id number] [place] [address] Feb, [facility] [place] [facility] [address] [id number] [place] [address] Feb, [facility] [place] [facility] [address] [id number] [place] [address] Feb, [facility] [place] [facility] [address] [id number] [place] [address] Feb, [facility] [place] [facility] [address] [id number] [place] [address] 17 Feb, 2012 [facility] [address] [id number] [place] [address] 17 Feb, 2012 [facility] [place] [facility] [address] [id number] [place] [address] Feb, [facility] [address] [id number] [place] [address] Feb, [facility] [address] [id number] [place] [address] Feb, [facility] [address] [id number] [place] [address] 08 Jan, 2012 [facility] [address] [id number] [place] [address] Jan, [facility] [address] [id number] [place] [address] Jan, [facility] [address] [id number] [place] [address] Jan, [facility] [address] [id number] [place] [address] Dec, [facility] [address] [id number] [place] [address] Dec, [facility] [address] [id number] [place] [address] Nov, [facility] [address] [id number] [place] [address] Nov, [facility] [place] [facility] [address] [id number] [place] [address] Nov, [facility] [place] [facility] [address] [id number] [place] [address] Nov, [facility] [place] [facility] [address] [id number] [place] [address] Nov, [facility] [address] [facility] [id number] [address] Oct, [facility] [address] [facility] [id number] [address] Oct, [facility] [id number] [address] Oct, [facility] [id number] [address] Oct, [facility] [address] [facility] [id number] [address] Oct, [facility] [id number] [place] [address] Oct, [facility] [id number] [address] Oct, [facility] [address], [place] [address] Oct, 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
--- OUTSIDE RECORDS SUMMARY | 2019-04-16 15:39 | XMS REPORT ---
Author Author Migration, Doctor Organization [facility] Address Unknown Phone Unavailable Care Team Providers Care Site Foreman Name Role Phone Migration, Doctor Unavailable Unavailable PROBLEMS Type Condition ICD9-CM Code PGI25-PE Code Onset Dates Condition Status SNOMED Code Problem Coronary artery disease I25.10 Active 13227731 Problem Hypertension I10 Active 54203222 Problem Other chronic pain G89.29 Active 16857564 Problem Hyperlipidemia E78.5 Active 31060560 Problem Type 2 diabetes mellitus without complication, without long-term current use of insulin E11.9 Active 871867061 Problem Low back pain M54.5 Active 016549100 Problem Pharyngeal dysphagia R13.13 Active [id number] Problem Anxiety F41.9 Active 96778533 Problem Peripheral vascular disease I73.9 Active 119891770 Problem Suprapubic catheter Z93.59 Active 889802760 Problem Reactive depression F32.9 Active 07870923 Problem Neurogenic bladder N31.9 Active 419419394 Problem Ventral hernia without obstruction or gangrene K43.9 Active 247499141 Problem Insomnia G47.00 Active 812916994 Problem Paroxysmal atrial fibrillation I48.0 Active 512275253 Problem 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 Active 74944009 Problem Encounter for suprapubic catheter care Z43.5 Active 135556765 ALLERGIES No Information ENCOUNTERS Encounter Location Date Diagnosis Via [facility] [address] [place] [id number] Jun, Via [facility] [address] [place] [id number] March, [facility] [address] [facility] [id number], [place] [address] Feb, Other chronic pain G89.[address] [facility] [address] [place] [id number] Feb, Neurogenic bladder N31.9 and Suprapubic catheter Z93.59 [facility] [address] [facility] [id number] [place] [address] Jan, Anxiety F41.9 [facility] [id number] [place] [address] Dec, Anxiety F41.9 [facility] [id number] [place] [address] Dec, Other chronic pain G89.29 and Anxiety F41.9 [facility] [id number] [place] [address] Dec, Via [facility] [address] [place] [id number] Dec, Neurogenic bladder N31.9 and Suprapubic catheter Z93.59 [facility] [id number] [place] [address] Nov, Other chronic pain G89.29 and Anxiety F41.9 [facility] [id number] [place] [address] Nov, Via [employer] [facility] [address] [place] [id number] Nov, Suprapubic catheter Z93.59 [facility] [id number] [place] [address] Oct, Other chronic pain G89.29 and Anxiety F41.9 [facility] [id number] [place] [address] Oct, [facility] [id number] [place] [address] Oct, Suprapubic catheter Z93.59 [facility] [id number] [place] [address] Oct, Via [facility] [facility] [address] [place] [id number] Oct, [facility] [id number] [place] [address] Oct, Anxiety F41.9 [facility] [address] [id number], [place] [address] 04 Oct, 2018 Anxiety F41.9 Via [facility] [address] [place] [id number] Oct, Other chronic pain G89.29 [facility] [address] [id number], [place] [address] 14 Sep, 2018 Other chronic pain G89.29 Via [facility] [address] [place] [id number] Sep, Suprapubic catheter Z93.59 and Cervicalgia M54.2 [facility] [address] [id number] [place] [address] Sep, [facility] [address] [id number] [place] [address] Sep, [facility] [address] [facility] [id number] [place] [address] Sep, Via [facility] [facility] [address] [place] [id number] Aug, Cystitis N30.90 [facility] [address] [id number] [place] [address] Aug, [facility] [address] [id number] [place] [address] Aug, Other chronic pain G89.29 [facility] [address] [id number] [place] [address] Aug, Via [facility] [address] [place] [id number] Aug, Encounter for suprapubic catheter care Z43.5 [facility] [address] [id number] [place] [address] Jul, Via [facility] [address] [place] [id number] Jul, [facility] [address] [id number] [place] [address] Jul, Other chronic pain G89.29 [facility] [address] [id number] [address] Jul, [facility] [address] [facility] [id number], [place] [address] Jul, Via [employer] [address] [place] [id number] Jun, 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 [facility] [id number] [place] [address] Jun, Other chronic pain G89.29 [facility] [id number] [place] [address] Jun, Via [employer] [address] [place] [id number] May, Anxiety F41.9 ; Type 2 diabetes mellitus without complication, without long-term current use of insulin E11.9 ; Hypertension I10 ; Low back pain M54.5 ; Paroxysmal atrial fibrillation I48.0 and 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 [facility] [address] [id number] [address] May, Other chronic pain G89.29 [facility] [address] [place] [id number] May, Low back pain M54.5 [facility] [address] [id number] [address] May, [facility] [id number] [place] [address] Apr, Other chronic pain G89.29 [facility] [address]005[address] [address] Apr, [facility] [id number] [place] [address] Apr, Via [employer] [address] [place] [id number] Apr, Closed compression fracture of L3 lumbar vertebra with routine healing, subsequent encounter S32.030D [facility] [address] [place] [id number] 14 Apr, 2018 Low back pain M54.5 [facility] [employer] [address] [place] [id number] 12 Apr, 2018 Coccydynia M53.3 [facility] [address] [facility] [id number], [place] [address] March, [facility] [address] [facility] [id number] [place] [address] March, Other chronic pain G89.29 [facility] [address] [id number] [place] [address] March, [facility] [address] [facility] [id number] [place] [address] March, [facility] [id number] [place] [address] Feb, [facility] [address] [facility] [id number] [place] [address] Feb, Other chronic pain G89.29 [facility] [employer] [address] [place] [id number] Feb, Other chronic pain G89.29 and Anxiety F41.9 [facility] [address] [id number], [place] [address] Feb, [facility] [address] [facility] [id number], [place] [address] Jan, [facility] [address] [facility] [id number], [place] [address] Jan, [facility] [address] [facility] [id number] [place] [address] 13 Jan, 2018 [facility] [address] [facility] [id number], [place] [address] 02 Jan, 2018 [facility] [address] [facility] [id number] [place] [address] Dec, [facility] [employer] 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 ; Other chronic pain G89.29 ; Anxiety F41.9 ; Reactive depression F32.9 ; Insomnia G47.00 and Type 2 diabetes mellitus without complication, without long-term current use of insulin E11.[address] [id number] [place] [address] Nov, [facility] [place] [facility] [address] [id number][place] [id number] Nov, Anxiety F41.9 [facility] [address] [facility] [id number], [place] [address] Nov, [facility] [address] [id number][place] [id number] Nov, Anxiety F41.9 [facility] [employer] [address] [place] [id number] Nov, Status post surgery Z98.890 ; Confused R41.0 ; Anxiety F41.9 and Other chronic pain G89.29 [facility] [address] [id number][place] [address] Nov, Other chronic pain G89.29 [facility] [address] [facility] [id number], [place] [address] Oct, [facility] [place] [facility] [address] [id number][place] [address] Oct, Other chronic pain G89.29 [facility] [address] [facility] [id number], [place] [address] Oct, Anxiety F41.9 [facility] [address] [id number][place] [address] Sep, Other chronic pain G89.29 [facility] [address] [id number][place] [id number] Sep, Via [employer] [address] [place] [id number] Aug, Dysuria R30.0 and Anxiety F41.9 [facility] [id number] [place] [address] Aug, [facility] [id number] [place] [id number] Aug, Other chronic pain G89.29 [facility] [id number] [place] [address] Jul, Other chronic pain G89.29 [facility] [id number] [place] [id number] Jun, [facility] [id number] [place] [id number] Jun, Other chronic pain G89.29 [facility] [id number] [place] [address] Jun, [facility] [id number] [place] [address] May, Other chronic pain G89.29 [facility] [id number] [place] [address] Apr, Other chronic pain G89.29 [facility] [employer] [address] [place] [id number] Apr, Reactive depression F32.9 and Pharyngeal dysphagia R13.13 [facility] [id number] [place] [address] Apr, Urinary tract infection without hematuria, site unspecified N39.0 [facility] [id number] [place] [address] March, Other chronic pain G89.29 [facility] [id number] [place] [address] Feb, Other chronic pain G89.29 [facility] [id number] [place] [address] Feb, [facility] [id number][place] [id number] Feb, [facility] [employer] [address] [place] [id number] Feb, Dysuria R30.0 and Ventral hernia without obstruction or gangrene K43.9 [facility] [address] [facility] [id number] [place] [address] Jan, Other chronic pain G89.29 [facility] [id number] [place] [id number] Dec, Other chronic pain G89.29 [facility] [id number] [place] [address] Nov, Other chronic pain G89.29 [facility] [employer] [address] [place] [id number] Nov, Lymphadenitis I88.9 [facility] [id number] [place] [address] Nov, Other chronic pain G89.29 [facility] [id number] [place] [address] Nov, [facility] [id number] [place] [id number] Nov, Other chronic pain G89.29 Via [employer] [address] [place] [id number] Oct, Low back pain M54.5 ; Hypertension I10 and Type 2 diabetes mellitus without complication, without long-term current use of insulin E11.9 [facility] [address] [facility] [id number], [place] [address] Oct, [facility] [id number] [place] [address] Oct, [facility] [address] [id number], [place] [address] Oct, [facility] [address]00565100[place], [place] [address] Oct, [facility] [address] [facility] [id number], [place] [address] Sep, [facility] [address] [facility] [id number], [place] [address] Sep, [facility] [address]005[address]100[place], [place] [address] Aug, Other chronic pain G89.29 [facility] [address] [facility] [id number], [place] [address] Jul, [facility] [address] [facility] [id number] [place] [address] Jul, [facility] [address]00565100[place], [place] [address] Jul, [facility] [address]00565100[place], [place] [address] Jun, [facility] [address] [id number], [place] [address] Jun, [facility] [address] [place] [id number] Jun, Low back pain M54.5 ; Other chronic pain G89.29 and Coronary artery disease I25.10 [facility] [address] [id number], [place] [address] Jun, [facility] [address] [id number], [place] [address] May, [facility] [address] [id number], [place] [address] May, [facility] [address] [id number], [place] [address] May, Other chronic pain G89.29 [facility] [address] [id number], [place] [address] May, [facility] [address]00565100[place], [place] [address] Apr, [facility] [address] [id number], [place] [address] Apr, Acute cystitis without hematuria N30.00 [facility] [address], [place] [address] 16 Apr, 2016 Acute cystitis without hematuria N30.00 ; Coronary artery disease I25.10 ; Low back pain M54.5 and Other chronic pain G89.29 [facility] [address]005[address]100[place], [place] [address] Apr, Other chronic pain G89.29 [facility] [address] [id number], [place] [address] March, Other chronic pain G89.29 [facility] [id number] [place] [address] Feb, [facility] [id number] [place] [address] Feb, Arthritis M19.90 [facility] [id number] [place] [address] Feb, [facility] [address]005[address]100[place], [place] [address] Jan, [facility] [address], [place] [address] Jan, [facility] [address]100[place] [address] Jan, Other chronic pain G89.29 [facility] [address]100[place], [place] [address] Jan, Hypertension I10 ; Coronary artery disease I25.10 and Insomnia G47.00 [facility] [address]00565100[place], [place] [address] Jan, [facility] [address] [facility] [id number], [place] [address] Dec, Right hip pain M25.551 [facility] [address] [facility] [id number], [place] [address] Dec, [facility] [address] [facility] [id number], [place] [address] Dec, [facility] [address] [facility] [id number] [place] [address] Dec, [facility] [address] [facility] [id number] [place] [address] Dec, Other chronic pain G89.29 [facility] [address], [place] [address] Dec, [facility] [id number] [place] [address] Nov, [facility] [address]100[place], [place] [address] Nov, Other chronic pain G89.29 [facility] [address]100[place] [address] Nov, Right hip pain M25.551 and Coronary artery disease I25.10 [facility] [address]00565100[place], [place] [address] Nov, Other chronic pain G89.29 [facility] [address]100[place], [place] [address] Oct, [facility] [address]00565100[place], [place] [address] Oct, [facility] [address]00565100[place], [place] [address] Sep, [facility] [address]005[address]100[place], [place] [address] Sep, [facility] [address] [facility] [id number], [place] [address] Aug, [facility] [id number] [place] [address] Aug, Hypertension I10 ; Coronary artery disease I25.10 and Arthritis M19.90 [facility] [address] [id number], [place] [address] Jun, [facility] [id number] [place] [address] Jun, Essential hypertension, benign 401.1 ; Other chronic pain 338.29 and Chronic airway obstruction, not elsewhere classified 496 [facility] [address]00565100[place], [place] [address] Jun, [facility] [address]00565100[place], [place] [address] Jun, [facility] [address]00565100[place], [place] [address] Jun, [facility] [address]00565100[place], [place] [address] May, [facility] [address]00565100[place], [place] [address] May, [facility] [address]00565100[place], [place] [address] Apr, [facility] [address] [id number], [place] [address] Apr, [facility] [address] [id number] [place] [address] Apr, [facility] [address] [id number], [place] [address] March, [facility] [address] [id number] [place] [address] March, [facility] [address] [id number] [place] [address] March, [facility] [address] [id number] [place] [address] March, [facility] [address] [id number] [place] [address] March, Sialadenitis 527.2 [facility] [address] [id number] [place] [address] Feb, [facility] [address] [id number] [place] [address] Feb, [facility] [address] [id number] [place] [address] Feb, [facility] [address] [id number] [place] [address] Feb, [facility] [address] [facility] [id number] [place] [address] Feb, [facility] [address] [id number] [place] [address] Jan, [facility] [address] [id number] [place] [address] Jan, [facility] [address] [facility] [id number] [place] [address] Jan, [facility] [address] [facility] [id number] [place] [address] Jan, [facility] [address] [id number] [place] [address] Jan, [facility] [address] [id number] [place] [address] Jan, [facility] [address] [id number] [place] [address] Dec, [facility] [address] [id number] [place] [address] Dec, [facility] [place] [facility] [address] [id number] [place] [address] Dec, [facility] [place] [facility] [address] [id number] [place] [address] Dec, [facility] [place] [facility] [address] [id number] [place] [address] Dec, [facility] [place] [facility] [address] [id number] [place] [address] Dec, [facility] [place] [facility] [address] [id number] [place] [address] Nov, [facility] [place] [facility] [address] [id number] [place] [address] Nov, [facility] [place] [facility] [address] [id number] [place] [address] Nov, [facility] [place] [facility] [address] [id number] [place] [address] Nov, [facility] [place] [facility] [address] [id number] [place] [address] Nov, [facility] [place] [facility] [address] [id number] [place] [address] Nov, [facility] [place] [facility] [address] [id number] [address] Nov, [facility] [place] [facility] [address] [id number], [place] [address] Nov, [facility] [place] [facility] [address] [id number], [place] [address] Nov, [facility] [place] [facility] [address] [id number], [place] [address] Nov, [facility] [place] [facility] [address] [id number] [place] [address] Nov, [facility] [place] [facility] [address] [id number] [place] [address] Nov, [facility] [place] [facility] [address] [id number] [place] [address] Nov, [facility] [place] [facility] [address] [id number] [place] [address] Nov, [facility] [place] [facility] [address] [id number] [place] [address] Oct, [facility] [place] [facility] [address] [id number] [place] [address] Oct, [facility] [place] [facility] [address] [id number] [place] [address] Oct, [facility] [place] [facility] [address] [id number] [place] [address] Oct, [facility] [place] [facility] [address] [id number] [place] [address] Oct, [facility] [place] [facility] [address] [address] [id number] [place] [address] Oct, [facility] [place] [facility] [address] [id number] [place] [address] Oct, [facility] [place] [facility] [address] [id number] [place] [address] Oct, [facility] [place] [facility] [address] [id number] [place] [address] Oct, [facility] [place] [facility] [address] [id number] [place] [address] Sep, [facility] [place] [facility] [address] [id number] [place] [address] Sep, [facility] [place] [facility] [address] [id number] [place] [address] Sep, [facility] [place] [facility] [address] [id number] [place] [address] Sep, [facility] [place] [facility] [address] [id number] [place] [address] Sep, [facility] [place] [facility] [address] [id number] [place] [address] Sep, [facility] [place] [facility] [address] [id number] [place] [address] Sep, [facility] [place] [facility] [address] [id number] [place] [address] Sep, [facility] [place] [facility] [address] [id number] [place] [address] Sep, [facility] [place] [facility] [address] [id number] [place] [address] Sep, [facility] [place] [facility] [address] [id number] [place] [address] Sep, [facility] [place] [facility] [address] [id number] [place] [address] Sep, [facility] [place] [facility] [address] [id number] [place] [address] Aug, [facility] [place] [facility] [address] [id number] [address] Aug, [facility] [place] [facility] [address] [id number], [place] [address] Aug, [facility] [place] [facility] [address] [id number][place] [address] Aug, [facility] [place] [facility] [address] [id number] [place] [address] Aug, [facility] [place] [facility] [address] [id number] [address] Aug, [facility] [place] [facility] [address] [id number] [place] [address] Aug, [facility] [place] [facility] [address] [id number] [place] [address] 17 Aug, 2014 [facility] [place] [facility] [address] [id number] [place] [address] 30 Jul, 2013 [facility] [place] [facility] [address] [id number] [place] [address] 30 Jul, 2013 [facility] [place] [facility] [address] [id number] [place] [address] 30 Jul, 2013 [facility] [place] [facility] [address] [id number] [place] [address] 30 Jul, 2013 [facility] [place] [facility] [address] [id number] [place] [address] 25 Jul, 2013 [facility] [place] [facility] [address] [id number] [place] [address] 25 Jul, 2013 [facility] [place] [facility] [address] [id number] [place] [address] 15 Jul, 2013 [facility] [place] [facility] [address] [id number] [place] [address] 15 Jul, 2013 [facility] [place] [facility] [address] [id number] [place] [address] 11 Jul, 2013 [facility] [place] [facility] [address] [id number] [place] [address] 11 Jul, 2013 [facility] [place] [facility] [address] [id number] [place] [address] Jun, [facility] [place] [facility] [address] [id number] [place] [address] Jun, [facility] [place] [facility] [address] [id number] [place] [address] Jun, [facility] [place] [facility] [address] [id number] [place] [address] Jun, [facility] [place] [facility] [address] [id number] [place] [address] Jun, [facility] [place] [facility] [address] [id number] [place] [address] Jun, [facility] [place] [facility] [address] [id number] [place] [address] Jun, [facility] [place] [facility] [address] [id number] [place] [address] Jun, [facility] [place] [facility] [address] [id number] [place] [address] Jun, [facility] [place] [facility] [address] [id number] [place] [address] Jun, [facility] [place] [facility] [address] [id number] [place] [address] Jun, [facility] [place] [facility] [address] [id number] [place] [address] Jun, [facility] [place] [facility] [address] [id number] [place] [address] Jun, [facility] [place] [facility] [address] [id number] [place] [address] Jun, [facility] [place] [facility] [address] [id number] [place] [address] Jun, [facility] [place] [facility] [address] [id number] [place] [address] Jun, [facility] [place] [facility] [address] [id number] [place] [address] Jun, [facility] [place] [facility] [address] [id number] [place] [address] Jun, [facility] [place] [facility] [address] [id number] [place] [address] Jun, [facility] [place] [facility] [address] [id number] [place] [address] Jun, [facility] [place] [facility] [address] [id number] [place] [address] Jun, [facility] [place] [facility] [address] [id number] [place] [address] Jun, [facility] [place] [facility] [address] [id number] [place] [address] May, [facility] [place] [facility] [address] [id number] [place] [address] May, [facility] [place] [facility] [address] [id number] [place] [address] May, [facility] [place] [facility] [address] [id number] [place] [address] May, [facility] [place] [facility] [address] [id number] [place] [address] May, [facility] [place] [facility] [address] [id number] [place] [address] May, [facility] [place] [facility] [address] [id number] [place] [address] May, [facility] [place] [facility] [address] [id number] [place] [address] May, [facility] [place] [facility] [address] [id number] [place] [address] May, [facility] [place] [facility] [address] [id number] [place] [address] May, [facility] [place] [facility] [address] [id number] [place] [address] May, [facility] [place] [facility] [address] [id number] [place] [address] May, [facility] [place] [facility] [address] [id number] [place] [address] May, [facility] [place] [facility] [address] [id number] [place] [address] Apr, [facility] [place] [facility] [address] [id number] [place] [address] Apr, [facility] [place] [facility] [address] [id number] [place] [address] Apr, [facility] [place] [facility] [address] [id number] [place] [address] Apr, [facility] [place] [facility] [address] [id number] [place] [address] Apr, [facility] [place] [facility] [address] [id number] [place] [address] Apr, [facility] [place] [facility] [address] [id number] [place] [address] Apr, [facility] [place] [facility] [address] [id number] [place] [address] Apr, [facility] [place] [facility] [address] [id number] [place] [address] Apr, [facility] [place] [facility] [address] [id number] [place] [address] March, [facility] [place] [facility] [address] [id number] [place] [address] March, [facility] [place] [facility] [address] [id number] [place] [address] March, [facility] [place] [facility] [address] [id number] [place] [address] March, [facility] [place] [facility] [address] [id number] [place] [address] March, [facility] [place] [facility] [address] [id number] [place] [address] March, [facility] [place] [facility] [address] [id number] [place] [address] March, [facility] [place] [facility] [address] [id number] [place] [address] March, [facility] [address] [id number] [place] [address] March, [facility] [place] [facility] [address] [id number] [place] [address] March, [facility] [place] [facility] [address] [id number] [place] [address] March, [facility] [place] [facility] [address] [id number] [place] [address] March, [facility] [place] [facility] [address] [id number] [place] [address] March, [facility] [place] [facility] [address] [id number] [place] [address] March, [facility] [place] [facility] [address] [id number] [place] [address] March, [facility] [place] [facility] [address] [id number] [place] [address] March, [facility] [place] [facility] [address] [id number] [place] [address] March, [facility] [place] [facility] [address] [id number] [place] [address] March, [facility] [place] [facility] [address] [id number] [place] [address] March, [facility] [place] [facility] [address] [id number] [place] [address] March, [facility] [place] [facility] [address] [id number] [place] [address] Feb, [facility] [place] [facility] [address] [id number] [place] [address] Feb, [facility] [place] [facility] [address] [id number] [place] [address] Feb, [facility] [place] [facility] [address] [id number] [place] [address] Feb, [facility] [place] [facility] [address] [id number] [place] [address] Feb, [facility] [place] [facility] [address] [id number] [place] [address] Feb, [facility] [place] [facility] [address] [id number] [place] [address] Feb, [facility] [place] [facility] [address] [id number] [place] [address] Feb, [facility] [place] [facility] [address] [id number] [place] [address] Jan, [facility] [place] [facility] [address] [id number] [place] [address] Jan, [facility] [place] [facility] [address] [id number] [place] [address] Jan, [facility] [place] [facility] [address] [id number] [place] [address] Jan, [facility] [place] [facility] [address] [id number] [place] [address] Jan, [facility] [place] [facility] [address] [id number] [place] [address] Jan, [facility] [place] [facility] [address] [id number] [place] [address] Jan, [facility] [place] [facility] [address] [id number] [place] [address] Jan, [facility] [place] [facility] [address] [id number] [place] [address] Jan, [facility] [place] [facility] [address] [id number] [place] [address] Jan, [facility] [place] [facility] [address] [id number] [place] [address] Dec, [facility] [place] [facility] [address] [id number] [place] [address] Dec, [facility] [place] [facility] [address] [id number] [place] [address] Dec, [facility] [place] [facility] [address] [id number] [place] [address] Dec, [facility] [place] [facility] [address] [id number] [place] [address] Dec, [facility] [place] [facility] [address] [id number] [place] [address] Dec, [facility] [place] [facility] [address] [id number] [place] [address] Dec, [facility] [place] [facility] [address] [id number] [place] [address] Dec, [facility] [place] [facility] [address] [id number] [place] [address] Nov, [facility] [place] [facility] [address] [id number] [place] [address] Nov, [facility] [place] [facility] [address] [id number] [place] [address] Nov, [facility] [place] [facility] [address] [id number] [place] [address] Nov, [facility] [place] [facility] [address] [id number] [place] [address] Nov, [facility] [place] [facility] [address] [id number] [place] [address] Nov, [facility] [place] [facility] [address] [id number] [place] [address] Nov, [facility] [place] [facility] [address] [id number] [place] [address] Nov, [facility] [place] [facility] [address] [id number], [place] [address] Nov, [facility] [address] [id number] [place] [address] Nov, [facility] [place] [facility] [address] [id number] [place] [address] Nov, [facility] [address] [id number] [place] [address] Nov, [facility] [place] [facility] [address] [id number] [place] [address] Nov, [facility] [address] [id number] [place] [address] Oct, [facility] [place] [facility] [address] [id number] [place] [address] Oct, [facility] [address] [id number] [place] [address] Oct, [facility] [place] [facility] [address] [id number] [place] [address] Oct, [facility] [address] [id number] [place] [address] Oct, [facility] [place] [facility] [address] [id number] [place] [address] Oct, [facility] [address] [id number] [place] [address] 18 Oct, 2013 [facility] [place] [facility] [address] [id number] [place] [address] 18 Oct, 2013 [facility] [place] [facility] [address] [id number] [place] [address] 17 Oct, 2013 [facility] [place] [facility] [address] [id number] [place] [address] 17 Oct, 2013 [facility] [place] [facility] [address] [id number] [place] [address] Oct, [facility] [place] [facility] [address] [id number] [place] [address] Oct, [facility] [address] [id number] [place] [address] Oct, [facility] [place] [facility] [address] [id number] [place] [address] Oct, [facility] [place] [facility] [address] [id number] [place] [address] Sep, [facility] [place] [facility] [address] [id number] [place] [address] Sep, [facility] [place] [facility] [address] [id number] [place] [address] Sep, [facility] [place] [facility] [address] [id number] [place] [address] Sep, [facility] [place] [facility] [address] [id number] [place] [address] Sep, [facility] [place] [facility] [address] [id number] [place] [address] Sep, [facility] [place] [facility] [address] [id number] [place] [address] Sep, [facility] [place] [facility] [address] [id number] [place] [address] Sep, [facility] [place] [facility] [address] [id number] [place] [address] Sep, [facility] [place] [facility] [address] [id number] [place] [address] Sep, [facility] [place] [facility] [address] [id number] [place] [address] Aug, [facility] [place] [facility] [address] [id number] [place] [address] Aug, [facility] [place] [facility] [address] [id number] [place] [address] Aug, [facility] [place] [facility] [address] [id number] [place] [address] 24 Aug, 2013 [facility] [place] [facility] [address] [id number] [place] [address] Aug, [facility] [place] [facility] [address] [id number] [place] [address] Aug, [facility] [place] [facility] [address] [id number] [place] [address] Aug, [facility] [place] [facility] [address] [id number] [place] [address] Aug, [facility] [place] [facility] [address] [id number], [place] [address] Aug, [facility] [place] [facility] [address] [id number] [place] [address] Aug, [facility] [place] [facility] [address] [id number], [place] [address] 18 Aug, 2013 [facility] [place] [facility] [address] [id number] [place] [address] 18 Aug, 2013 [facility] [place] [facility] [address] [id number], [place] [address] 18 Aug, 2013 [facility] [place] [facility] [address] [id number], [place] [address] 18 Aug, 2013 [facility] [place] [facility] [address] [id number], [place] [address] 17 Aug, 2013 [facility] [place] [facility] [address] [id number], [place] [address] 14 Aug, 2013 [facility] [place] [facility] [address] [id number], [place] [address] 14 Aug, 2013 [facility] [place] [facility] [address] [id number], [place] [address] Aug, [facility] [place] [facility] [address] [id number] [place] [address] 20 Jul, 2013 [facility] [place] [facility] [address] [id number] [place] [address] 19 Jul, 2013 [facility] [place] [facility] [address] [id number] [place] [address] 18 Jul, 2013 [facility] [place] [facility] [address] [id number] [place] [address] 11 Jul, 2013 [facility] [place] [facility] [address] [id number] [place] [address] 11 Jul, 2013 [facility] [place] [facility] [address] [id number] [place] [address] Jun, [facility] [place] [facility] [address] [id number] [place] [address] Jun, [facility] [place] [facility] [address] [id number] [place] [address] Jun, [facility] [place] [facility] [address] [id number] [place] [address] 15 Jun, 2013 [facility] [place] [facility] [address] [id number] [place] [address] Jun, [facility] [place] [facility] [address] [id number] [place] [address] Jun, [facility] [place] [facility] [address] [id number] [place] [address] Jun, [facility] [place] [facility] [address] [id number] [place] [address] Jun, [facility] [place] [facility] [address] [id number] [place] [address] Jun, [facility] [place] [facility] [address] [id number] [place] [address] Jun, [facility] [place] [facility] [address] [id number] [place] [address] May, [facility] [place] [facility] [address] [id number] [place] [address] May, [facility] [place] [facility] [address] [id number] [place] [address] May, [facility] [place] [facility] [address] [id number] [place] [address] May, [facility] [place] [facility] [address] [id number] [place] [address] May, [facility] [place] [facility] [address] [id number] [place] [address] 16 May, 2013 [facility] [place] [facility] [address] [id number] [place] [address] May, [facility] [place] [facility] [address] [id number] [place] [address] May, [facility] [place] [facility] [address] [id number] [place] [address] May, [facility] [place] [facility] [address] [id number] [place] [address] Apr, [facility] [place] [facility] [address] [id number] [place] [address] Apr, [facility] [place] [facility] [address] [id number] [place] [address] Apr, [facility] [place] [facility] [address] [id number] [place] [address] Apr, [facility] [place] [facility] [address] [id number] [place] [address] Apr, [facility] [place] [facility] [address] [id number] [place] [address] Apr, [facility] [place] [facility] [address] [id number] [place] [address] Apr, [facility] [place] [facility] [address] [id number] [place] [address] March, [facility] [place] [facility] [address] [id number] [place] [address] Feb, [facility] [place] [facility] [address] [id number] [place] [address] Feb, [facility] [place] [facility] [address] [id number] [place] [address] Feb, [facility] [place] [facility] [address] [id number] [place] [address] Jan, [facility] [place] [facility] [address] [id number] [place] [address] Jan, [facility] [place] [facility] [address] [id number] [place] [address] Jan, [facility] [place] [facility] [address] [id number] [place] [address] Jan, [facility] [place] [facility] [address] [id number] [place] [address] Jan, [facility] [place] [facility] [address] [id number] [place] [address] Jan, [facility] [place] [facility] [address] [id number] [place] [address] Jan, [facility] [place] [facility] [address] [id number] [place] [address] Jan, [facility] [place] [facility] [address] [id number] [place] [address] 28 Dec, 2012 [facility] [place] [facility] [address] [id number] [place] [address] Dec, [facility] [place] [facility] [address] [id number] [place] [address] Dec, [facility] [place] [facility] [address] [id number] [place] [address] Dec, [facility] [place] [facility] [address] [id number] [place] [address] 07 Dec, 2012 [facility] [address] [id number] [place] [address] 06 Dec, 2012 [facility] [place] [facility] [address] [id number] [place] [address] 05 Dec, 2012 [facility] [place] [facility] [address] [id number] [place] [address] Nov, [facility] [place] [facility] [address] [id number] [place] [address] 24 Nov, 2012 [facility] [place] [facility] [address] [id number] [place] [address] 18 Nov, 2012 [facility] [address] [id number] [place] [address] 15 Nov, 2012 [facility] [address] [id number] [place] [address] Nov, [facility] [address] [id number] [place] [address] Nov, [facility] [address] [id number] [place] [address] Nov, [facility] [address] [id number] [place] [address] Oct, [facility] [address] [id number] [place] [address] Oct, [facility] [place] [facility] [address] [id number] [place] [address] Oct, [facility] [place] [facility] [address] [id number] [place] [address] Oct, [facility] [place] [facility] [address] [id number] [place] [address] 17 Oct, 2012 [facility] [place] [facility] [address] [id number] [place] [address] Oct, [facility] [place] [facility] [address] [id number] [place] [address] Oct, [facility] [place] [facility] [address] [id number] [place] [address] Oct, [facility] [place] [facility] [address] [facility] [id number] [place] [address] Oct, [facility] [place] [facility] [address] [id number] [place] [address] Oct, [facility] [place] [facility] [address] [id number] [place] [address] Oct, [facility] [place] [facility] [address] [id number] [place] [address] Oct, [facility] [place] [facility] [address] [facility] [id number] [place] [address] Sep, [facility] [place] [facility] [address] [id number], [place] [address] Sep, [facility] [place] [facility] [address] [id number], [place] [address] Sep, [facility] [place] [facility] [address] [facility] [id number], [place] [address] Sep, [facility] [place] [facility] [address] [id number], [place] [address] Sep, [facility] [place] [facility] [address] [id number], [place] [address] Sep, [facility] [place] [facility] [address] [id number], [place] [address] Sep, [facility] [place] [facility] [address] [facility] [id number], [place] [address] Sep, [facility] [place] [facility] [address] [facility] [id number], [place] [address] Sep, [facility] [place] [facility] [address] [id number] [place] [address] Sep, [facility] [place] [facility] [address] [id number] [place] [address] Sep, [facility] [place] [facility] [address] [id number] [place] [address] Aug, [facility] [place] [facility] [address] [id number] [place] [address] Aug, [facility] [place] [facility] [address] [id number] [place] [address] Aug, [facility] [place] [facility] [address] [id number] [place] [address] Aug, [facility] [place] [facility] [address] [id number] [place] [address] Aug, [facility] [place] [facility] [address] [address] [id number] [place] [address] Aug, [facility] [place] [facility] [address] [id number] [place] [address] Aug, [facility] [place] [facility] [address] [id number] [place] [address] Aug, [facility] [place] [facility] [address] [facility] [id number] [place] [address] Aug, [facility] [place] [facility] [address] [id number] [place] [address] Aug, [facility] [place] [facility] [address] [id number] [place] [address] 22 Jul, 2012 [facility] [place] [facility] [address] [id number] [place] [address] 20 Jul, 2012 [facility] [place] [facility] [address] [id number] [place] [address] 10 Jul, 2012 [facility] [place] [facility] [address] [id number] [place] [address] Jul, [facility] [place] [facility] [address] [id number] [place] [address] Jun, [facility] [place] [facility] [address] [id number] [place] [address] Jun, [facility] [place] [facility] [address] [id number] [place] [address] Jun, [facility] [place] [facility] [address] [id number] [place] [address] Jun, [facility] [place] [facility] [address] [id number] [place] [address] Jun, [facility] [place] [facility] [address] [id number] [place] [address] Jun, [facility] [place] [facility] [address] [id number] [place] [address] Jun, [facility] [place] [facility] [address] [id number] [place] [address] May, [facility] [place] [facility] [address] [id number] [place] [address] May, [facility] [place] [facility] [address] [id number] [place] [address] May, [facility] [place] [facility] [address] [id number] [place] [address] May, [facility] [place] [facility] [address] [id number] [place] [address] May, [facility] [place] [facility] [address] [id number] [place] [address] Apr, [facility] [place] [facility] [address] [id number] [place] [address] Apr, [facility] [place] [facility] [address] [id number] [place] [address] Apr, [facility] [place] [facility] [address] [id number] [place] [address] Apr, [facility] [address] [id number] [place] [address] Apr, [facility] [place] [facility] [address] [id number] [place] [address] March, [facility] [place] [facility] [address] [id number] [place] [address] March, [facility] [place] [facility] [address] [id number] [place] [address] March, [facility] [place] [facility] [address] [id number] [place] [address] March, [facility] [place] [facility] [address] [id number] [place] [address] March, [facility] [address] [id number] [place] [address] March, [facility] [place] [facility] [address] [id number] [place] [address] March, [facility] [place] [facility] [address] [id number] [place] [address] March, [facility] [place] [facility] [address] [id number] [place] [address] March, [facility] [place] [facility] [address] [id number] [place] [address] March, [facility] [place] [facility] [address] [id number] [place] [address] Feb, [facility] [place] [facility] [address] [id number] [place] [address] Feb, [facility] [place] [facility] [address] [id number] [place] [address] Feb, [facility] [place] [facility] [address] [id number] [place] [address] Feb, [facility] [place] [facility] [address] [id number] [place] [address] 17 Feb, 2012 [facility] [address] [id number] [place] [address] 17 Feb, 2012 [facility] [place] [facility] [address] [id number] [place] [address] Feb, [facility] [address] [id number] [place] [address] Feb, [facility] [address] [id number] [place] [address] Feb, [facility] [address] [id number] [place] [address] 08 Jan, 2012 [facility] [address] [id number] [place] [address] Jan, [facility] [address] [id number] [place] [address] Jan, [facility] [address] [id number] [place] [address] Jan, [facility] [address] [id number] [place] [address] Dec, [facility] [address] [id number] [place] [address] Dec, [facility] [address] [id number] [place] [address] Nov, [facility] [address] [id number] [place] [address] Nov, [facility] [place] [facility] [address] [id number] [place] [address] Nov, [facility] [place] [facility] [address] [id number] [place] [address] Nov, [facility] [place] [facility] [address] [id number] [place] [address] Nov, [facility] [address] [facility] [id number] [address] Oct, [facility] [address] [facility] [id number] [address] Oct, [facility] [id number] [address] Oct, [facility] [id number], [place] [address] Oct, [facility] [address] [facility] [id number], [place] [address] Oct, [facility] [id number] [place] [address] Oct, [facility] [id number], [place] [address] Oct, [facility] [id number] [address] Oct, [facility] [address] [id number] [address] Sep, IMMUNIZATIONS No Known Immunizations SOCIAL HISTORY Never Assessed REASON FOR VISIT 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
--- OUTSIDE RECORDS SUMMARY | 2019-04-16 15:40 | XMS REPORT ---
Author Author Migration, Doctor Organization [facility] Address Unknown Phone Unavailable Care Team Providers Care Meteorology Professor Name Role Phone Migration, Doctor Unavailable Unavailable PROBLEMS Type Condition ICD9-CM Code MFN04-TJ Code Onset Dates Condition Status SNOMED Code Problem Coronary artery disease I25.10 Active 96962114 Problem Hypertension I10 Active 32740445 Problem Other chronic pain G89.29 Active 55207555 Problem Hyperlipidemia E78.5 Active 62376121 Problem Type 2 diabetes mellitus without complication, without long-term current use of insulin E11.9 Active 406935099 Problem Low back pain M54.5 Active 260782002 Problem Pharyngeal dysphagia R13.13 Active [id number] Problem Anxiety F41.9 Active 79724541 Problem Peripheral vascular disease I73.9 Active 249478885 Problem Suprapubic catheter Z93.59 Active 178674011 Problem Reactive depression F32.9 Active 57746365 Problem Neurogenic bladder N31.9 Active 144410129 Problem Ventral hernia without obstruction or gangrene K43.9 Active 817891473 Problem Insomnia G47.00 Active 515092802 Problem Paroxysmal atrial fibrillation I48.0 Active 344304370 Problem 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 Active 05068020 Problem Encounter for suprapubic catheter care Z43.5 Active [id number] ALLERGIES No Information ENCOUNTERS Encounter Location Date Diagnosis Via [facility] [address] [place] [id number] Jun, Via [facility] [address] [place] [id number] March, [facility] [address] [facility] [id number] [address] Feb, Other chronic pain G89.29 Via [facility] [address] [place] [id number] Feb, Neurogenic bladder N31.9 and Suprapubic catheter Z93.59 [facility] [address] [facility] [id number] [place] [address] Jan, Anxiety F41.9 [facility] [address] [place] [address] Dec, Anxiety F41.9 [facility] [id number] [place] [address] Dec, Other chronic pain G89.29 and Anxiety F41.9 [facility] [id number] [place] [address] Dec, Via [facility] [address] [place] [id number] Dec, Neurogenic bladder N31.9 and Suprapubic catheter Z93.59 [facility] [id number] [place] [address] Nov, Other chronic pain G89.29 and Anxiety F41.9 [facility] [id number] [place] [address] Nov, Via [facility] [facility] [address] [place] [id number] Nov, Suprapubic catheter Z93.59 [facility] [id number] [place] [address] Oct, Other chronic pain G89.29 and Anxiety F41.9 [facility] [id number] [place] [address] Oct, [facility] [id number] [place] [address] Oct, Suprapubic catheter Z93.59 [facility] [id number] [place] [address] Oct, Via [employer] [facility] [address] [place] [id number] Oct, [facility] [address] [place] [address] Oct, Anxiety F41.9 [facility] [address] [id number], [place] [address] 04 Oct, 2018 Anxiety F41.9 Via [employer] [facility] [address] [place] [id number] Oct, Other chronic pain G89.29 [facility] [address] [id number], [place] [address] 14 Sep, 2018 Other chronic pain G89.29 Via [employer] [facility] [address] [place] [id number] Sep, Suprapubic catheter Z93.59 and Cervicalgia M54.2 [facility] [address] [id number] [place] [address] Sep, [facility] [address] [id number] [place] [address] Sep, [facility] [address] [facility] [id number] [place] [address] Sep, Via [facility] [address] [place] [id number] Aug, Cystitis N30.90 [facility] [address] [id number] [place] [address] Aug, [facility] [address] [id number] [place] [address] Aug, Other chronic pain G89.29 [facility] [address] [id number] [place] [address] Aug, Via [employer] [facility] [address] [place] [id number] Aug, Encounter for suprapubic catheter care Z43.5 [facility] [address] [id number] [place] [address] Jul, Via [employer] [facility] [address] [place] [id number] Jul, [facility] [address] [id number] [place] [address] Jul, Other chronic pain G89.29 [facility] [address] [id number] [address] Jul, [facility] [address] [facility] [id number], [place] [address] Jul, Via [employer] [facility] [address] [place] [id number] Jun, 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 [facility] [id number] [place] [address] Jun, Other chronic pain G89.29 [facility] [id number] [place] [address] Jun, Via [employer] [address] [place] [id number] May, Anxiety F41.9 ; Type 2 diabetes mellitus without complication, without long-term current use of insulin E11.9 ; Hypertension I10 ; Low back pain M54.5 ; Paroxysmal atrial fibrillation I48.0 and 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 [facility] [address] [id number] [address] May, Other chronic pain G89.29 Via [facility] [address] [place] [id number] May, Low back pain M54.5 [facility] [address] [id number] [address] May, [facility] [id number] [place] [address] Apr, Other chronic pain G89.29 [facility] [address]00565100[place] [address] Apr, [facility] [address] [place] [address] Apr, Via [facility] [address] [place] [id number] Apr, Closed compression fracture of L3 lumbar vertebra with routine healing, subsequent encounter S32.030D [facility] [address] [place] [id number] 14 Apr, 2018 Low back pain M54.5 Via [facility] [address] [place] [id number] 12 Apr, 2018 Coccydynia M53.3 [facility] [address] [facility] [id number], [place] [address] March, [facility] [address] [facility] [id number] [place] [address] March, Other chronic pain G89.29 [facility] [address] [id number] [place] [address] March, [facility] [address] [facility] [id number] [place] [address] March, [facility] [id number] [place] [address] Feb, [facility] [address] [facility] [id number] [place] [address] Feb, Other chronic pain G89.29 Via [employer] [address] [place] [id number] Feb, Other chronic pain G89.29 and Anxiety F41.9 [facility] [address] [id number], [place] [address] Feb, [facility] [address] [facility] [id number], [place] [address] Jan, [facility] [address] [facility] [id number], [place] [address] Jan, [facility] [address] [facility] [id number] [place] [address] 13 Jan, 2018 [facility] [address] [facility] [id number], [place] [address] 02 Jan, 2018 [facility] [address] [facility] [id number] [place] [address] Dec, Via [facility] [address] [place] [id number] Dec, Peripheral vascular disease I73.9 ; 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 ; Other chronic pain G89.29 ; Anxiety F41.9 ; Reactive depression F32.9 ; Insomnia G47.00 and Type 2 diabetes mellitus without complication, without long-term current use of insulin E11.[address] [id number] [place] [address] Nov, [facility] [address] [id number] [address] Nov, Anxiety F41.9 [facility] [address] [facility] [id number], [place] [address] Nov, [facility] [address] [id number] [address] Nov, Anxiety F41.9 [facility] [address] [address] [address] [place] [id number] Nov, Status post surgery Z98.890 ; Confused R41.0 ; Anxiety F41.9 and Other chronic pain G89.29 [facility] [address] [id number] [address] Nov, Other chronic pain G89.29 [facility] [address] [facility] [id number], [place] [address] Oct, [facility] [address] [id number][place] [id number] Oct, Other chronic pain G89.29 [facility] [address] [facility] [id number][place] [address] Oct, Anxiety F41.9 [facility] [address] [id number][place] [address] Sep, Other chronic pain G89.29 [facility] [address] [id number][place] [id number] Sep, Via [employer] [address] [place] [id number] Aug, Dysuria R30.0 and Anxiety F41.9 [facility] [address] [place] [address] Aug, [facility] [id number] [place] [id number] Aug, Other chronic pain G89.29 [facility] [id number] [place] [address] Jul, Other chronic pain G89.29 [facility] [id number] [place] [id number] Jun, [facility] [id number] [place] [id number] Jun, Other chronic pain G89.29 [facility] [id number] [place] [address] Jun, [facility] [id number] [place] [address] May, Other chronic pain G89.29 [facility] [id number] [place] [address] Apr, Other chronic pain G89.29 [facility] [address] [place] [id number] Apr, Reactive depression F32.9 and Pharyngeal dysphagia R13.13 [facility] [address] [place] [address] Apr, Urinary tract infection without hematuria, site unspecified N39.0 [facility] [address] [place] [address] March, Other chronic pain G89.29 [facility] [address] [place] [address] Feb, Other chronic pain G89.29 [facility] [id number] [place] [address] Feb, [facility] [id number] [id number] Feb, Via [employer] [facility] [address] [place] [id number] Feb, Dysuria R30.0 and Ventral hernia without obstruction or gangrene K43.9 [facility] [address] [facility] [id number] [place] [address] Jan, Other chronic pain G89.29 [facility] [id number] [place] [id number] Dec, Other chronic pain G89.29 [facility] [address] [place] [address] Nov, Other chronic pain G89.29 [facility] [address] [place] [id number] Nov, Lymphadenitis I88.9 [facility] [address] [place] [address] Nov, Other chronic pain G89.29 [facility] [address] [place] [address] Nov, [facility] [id number] [place] [id number] Nov, Other chronic pain G89.29 [facility] [employer] [address] [place] [id number] Oct, Low back pain M54.5 ; Hypertension I10 and Type 2 diabetes mellitus without complication, without long-term current use of insulin E11.9 [facility] [address] [facility] [id number], [place] [address] Oct, [facility] [id number] [place] [address] Oct, [facility] [address] [id number], [place] [address] Oct, [facility] [address]00565100[place], [place] [address] Oct, [facility] [address] [facility] [id number], [place] [address] Sep, [facility] [address] [facility] [id number], [place] [address] Sep, [facility] [address]00565100[place], [place] [address] Aug, Other chronic pain G89.29 [facility] [address] [facility] [id number], [place] [address] Jul, [facility] [address] [facility] [id number] [place] [address] Jul, [facility] [address]00565100[place], [place] [address] Jul, [facility] [address]00565100[place] [address] Jun, [facility] [address] [id number] [address] Jun, Via [facility] [address] [place] [id number] Jun, Low back pain M54.5 ; Other chronic pain G89.29 and Coronary artery disease I25.10 [facility] [address] [id number] [address] Jun, [facility] [id number] [address] May, [facility] [id number] [address] May, [facility] [id number] [address] May, Other chronic pain G89.29 [facility] [id number] [address] May, [facility] [address]00565100[place], [place] [address] Apr, [facility] [address] [id number], [place] [address] Apr, Acute cystitis without hematuria N30.00 [facility] [address]65100[place], [place] [address] 16 Apr, 2016 Acute cystitis without hematuria N30.00 ; Coronary artery disease I25.10 ; Low back pain M54.5 and Other chronic pain G89.29 [facility] [address]65100[place], [place] [address] Apr, Other chronic pain G89.29 [facility] [address] [id number] [address] March, Other chronic pain G89.29 [facility] [id number] [place] [address] Feb, [facility] [address] [place] [address] Feb, Arthritis M19.90 [facility] [id number] [place] [address] Feb, [facility] [address]00565100[place] [address] Jan, [facility] [address]65100[place], [place] [address] Jan, [facility] [address]00565100[place] [address] Jan, Other chronic pain G89.29 [facility] [address]00565100[place], [place] [address] Jan, Hypertension I10 ; Coronary artery disease I25.10 and Insomnia G47.00 [facility] [address]00565100[place], [place] [address] Jan, [facility] [address] [facility] [id number], [place] [address] Dec, Right hip pain M25.551 [facility] [address] [facility] [id number], [place] [address] Dec, [facility] [address] [facility] [id number], [place] [address] Dec, [facility] [address] [facility] [id number] [place] [address] Dec, [facility] [address] [facility] [id number] [place] [address] Dec, Other chronic pain G89.29 [facility] [address]005[address]100[place], [place] [address] Dec, [facility] [address] [place] [address] Nov, [facility] [address]00565100[place], [place] [address] Nov, Other chronic pain G89.29 [facility] [address]100[place], [place] [address] Nov, Right hip pain M25.551 and Coronary artery disease I25.10 [facility] [address]00565100[place] [address] Nov, Other chronic pain G89.29 [facility] [address]00565100[place], [place] [address] Oct, [facility] [address]00565100[place], [place] [address] Oct, [facility] [address]65100[place], [place] [address] Sep, [facility] [address]65100[place], [place] [address] Sep, [facility] [address] [facility] [id number], [place] [address] Aug, [facility] [id number] [place] [address] Aug, Hypertension I10 ; Coronary artery disease I25.10 and Arthritis M19.90 [facility] [address] [id number] [address] Jun, [facility] [id number] [place] [address] Jun, Essential hypertension, benign 401.1 ; Other chronic pain 338.29 and Chronic airway obstruction, not elsewhere classified 496 [facility] [address]005[address]100[place], [place] [address] Jun, [facility] [address]100[place], [place] [address] Jun, [facility] [address]100[place], [place] [address] Jun, [facility] [address]00565100[place] [address] May, [facility] [address]005[address]100[place] [address] May, [facility] [address]100[place], [place] [address] Apr, [facility] [address] [id number] [address] Apr, [facility] [id number] [place] [address] Apr, [facility] [id number] [address] March, [facility] [id number] [place] [address] March, [facility] [address] [id number] [place] [address] March, [facility] [address] [id number] [place] [address] March, [facility] [address] [id number] [place] [address] March, Sialadenitis 527.2 [facility] [address] [id number] [place] [address] Feb, [facility] [address] [id number] [place] [address] Feb, [facility] [address] [id number] [place] [address] Feb, [facility] [address] [id number] [place] [address] Feb, [facility] [address] [facility] [id number] [place] [address] Feb, [facility] [address] [id number] [place] [address] Jan, [facility] [address] [id number] [place] [address] Jan, [facility] [address] [facility] [id number] [place] [address] Jan, [facility] [address] [facility] [id number] [place] [address] Jan, [facility] [address] [id number] [place] [address] Jan, [facility] [address] [id number] [place] [address] Jan, [facility] [address] [id number] [place] [address] Dec, [facility] [address] [id number] [place] [address] Dec, [facility] [place] [facility] [address] [id number] [place] [address] Dec, [facility] [place] [facility] [address] [id number] [place] [address] Dec, [facility] [place] [facility] [address] [id number] [place] [address] Dec, [facility] [place] [facility] [address] [id number] [place] [address] Dec, [facility] [place] [facility] [address] [id number] [place] [address] Nov, [facility] [place] [facility] [address] [id number] [place] [address] Nov, [facility] [place] [facility] [address] [id number] [place] [address] Nov, [facility] [place] [facility] [address] [id number] [place] [address] Nov, [facility] [place] [facility] [address] [id number] [place] [address] Nov, [facility] [place] [facility] [address] [id number] [place] [address] Nov, [facility] [place] [facility] [address] [id number] [address] Nov, [facility] [place] [facility] [address] [id number], [place] [address] Nov, [facility] [place] [facility] [address] [id number], [place] [address] Nov, [facility] [place] [facility] [address] [id number], [place] [address] Nov, [facility] [place] [facility] [address] [id number] [place] [address] Nov, [facility] [place] [facility] [address] [id number] [place] [address] Nov, [facility] [place] [facility] [address] [id number] [place] [address] Nov, [facility] [place] [facility] [address] [id number] [place] [address] Nov, [facility] [place] [facility] [address] [id number] [place] [address] Oct, [facility] [place] [facility] [address] [id number] [place] [address] Oct, [facility] [place] [facility] [address] [id number] [place] [address] Oct, [facility] [place] [facility] [address] [id number] [place] [address] Oct, [facility] [place] [facility] [address] [id number] [place] [address] Oct, [facility] [place] [facility] [address] [id number] [place] [address] Oct, [facility] [place] [facility] [address] [id number] [place] [address] Oct, [facility] [place] [facility] [address] [id number] [place] [address] Oct, [facility] [place] [facility] [address] [id number] [place] [address] Oct, [facility] [place] [facility] [address] [id number] [place] [address] Sep, [facility] [place] [facility] [address] [id number] [place] [address] Sep, [facility] [place] [facility] [address] [id number] [place] [address] Sep, [facility] [place] [facility] [address] [id number] [place] [address] Sep, [facility] [place] [facility] [address] [id number] [place] [address] Sep, [facility] [place] [facility] [address] [id number] [place] [address] Sep, [facility] [place] [facility] [address] [id number] [place] [address] Sep, [facility] [place] [facility] [address] [id number] [place] [address] Sep, [facility] [place] [facility] [address] [id number] [place] [address] Sep, [facility] [place] [facility] [address] [id number] [place] [address] Sep, [facility] [place] [facility] [address] [id number] [place] [address] Sep, [facility] [place] [facility] [address] [id number] [place] [address] Sep, [facility] [place] [facility] [address] [id number] [place] [address] Aug, [facility] [place] [facility] [address] [id number], [place] [address] Aug, [facility] [place] [facility] [address] [id number], [place] [address] Aug, [facility] [place] [facility] [address] [id number], [place] [address] Aug, [facility] [place] [facility] [address] [id number] [place] [address] Aug, [facility] [place] [facility] [address] [id number], [place] [address] Aug, [facility] [place] [facility] [address] [id number] [place] [address] Aug, [facility] [place] [facility] [address] [id number] [place] [address] 17 Aug, 2014 [facility] [place] [facility] [address] [id number] [place] [address] 30 Jul, 2013 [facility] [place] [facility] [address] [id number] [place] [address] 30 Jul, 2013 [facility] [place] [facility] [address] [id number] [place] [address] 30 Jul, 2013 [facility] [place] [facility] [address] [id number] [place] [address] 30 Jul, 2013 [facility] [place] [facility] [address] [id number] [place] [address] 25 Jul, 2013 [facility] [place] [facility] [address] [id number] [place] [address] 25 Jul, 2013 [facility] [place] [facility] [address] [id number] [place] [address] 15 Jul, 2013 [facility] [place] [facility] [address] [id number] [place] [address] 15 Jul, 2013 [facility] [place] [facility] [address] [id number] [place] [address] 11 Jul, 2013 [facility] [place] [facility] [address] [id number] [place] [address] 11 Jul, 2013 [facility] [place] [facility] [address] [id number] [place] [address] Jun, [facility] [place] [facility] [address] [id number] [place] [address] Jun, [facility] [place] [facility] [address] [id number] [place] [address] Jun, [facility] [place] [facility] [address] [id number] [place] [address] Jun, [facility] [place] [facility] [address] [id number] [place] [address] Jun, [facility] [place] [facility] [address] [id number] [place] [address] Jun, [facility] [place] [facility] [address] [id number] [place] [address] Jun, [facility] [place] [facility] [address] [id number] [place] [address] Jun, [facility] [place] [facility] [address] [id number] [place] [address] Jun, [facility] [place] [facility] [address] [id number] [place] [address] Jun, [facility] [place] [facility] [address] [id number] [place] [address] Jun, [facility] [place] [facility] [address] [id number] [place] [address] Jun, [facility] [place] [facility] [address] [id number] [place] [address] Jun, [facility] [place] [facility] [address] [id number] [place] [address] Jun, [facility] [place] [facility] [address] [id number] [place] [address] Jun, [facility] [place] [facility] [address] [id number] [place] [address] Jun, [facility] [place] [facility] [address] [id number] [place] [address] Jun, [facility] [place] [facility] [address] [id number] [place] [address] Jun, [facility] [place] [facility] [address] [id number] [place] [address] Jun, [facility] [place] [facility] [address] [id number] [place] [address] Jun, [facility] [place] [facility] [address] [id number] [place] [address] Jun, [facility] [place] [facility] [address] [id number] [place] [address] Jun, [facility] [place] [facility] [address] [id number] [place] [address] May, [facility] [place] [facility] [address] [id number] [place] [address] May, [facility] [place] [facility] [address] [id number] [place] [address] May, [facility] [place] [facility] [address] [id number] [place] [address] May, [facility] [place] [facility] [address] [id number] [place] [address] May, [facility] [place] [facility] [address] [id number] [place] [address] May, [facility] [place] [facility] [address] [id number] [place] [address] May, [facility] [place] [facility] [address] [id number] [place] [address] May, [facility] [place] [facility] [address] [id number] [place] [address] May, [facility] [place] [facility] [address] [id number] [place] [address] May, [facility] [place] [facility] [address] [id number] [place] [address] May, [facility] [place] [facility] [address] [id number] [place] [address] May, [facility] [place] [facility] [address] [id number] [place] [address] May, [facility] [place] [facility] [address] [id number] [place] [address] Apr, [facility] [place] [facility] [address] [id number] [place] [address] Apr, [facility] [place] [facility] [address] [id number] [place] [address] Apr, [facility] [place] [facility] [address] [id number] [place] [address] Apr, [facility] [place] [facility] [address] [id number] [place] [address] Apr, [facility] [place] [facility] [address] [id number] [place] [address] Apr, [facility] [place] [facility] [address] [id number] [place] [address] Apr, [facility] [place] [facility] [address] [id number] [place] [address] Apr, [facility] [place] [facility] [address] [id number] [place] [address] Apr, [facility] [place] [facility] [address] [id number] [place] [address] March, [facility] [place] [facility] [address] [id number] [place] [address] March, [facility] [place] [facility] [address] [id number] [place] [address] March, [facility] [place] [facility] [address] [id number] [place] [address] March, [facility] [place] [facility] [address] [id number] [place] [address] March, [facility] [place] [facility] [address] [id number] [place] [address] March, [facility] [place] [facility] [address] [id number] [place] [address] March, [facility] [place] [facility] [address] [id number] [place] [address] March, [facility] [address] [id number] [place] [address] March, [facility] [place] [facility] [address] [id number] [place] [address] March, [facility] [place] [facility] [address] [id number] [place] [address] March, [facility] [place] [facility] [address] [id number] [place] [address] March, [facility] [place] [facility] [address] [id number] [place] [address] March, [facility] [place] [facility] [address] [id number] [place] [address] March, [facility] [place] [facility] [address] [id number] [place] [address] March, [facility] [place] [facility] [address] [id number] [place] [address] March, [facility] [place] [facility] [address] [id number] [place] [address] March, [facility] [place] [facility] [address] [id number] [place] [address] March, [facility] [place] [facility] [address] [id number] [place] [address] March, [facility] [place] [facility] [address] [id number] [place] [address] March, [facility] [place] [facility] [address] [id number] [place] [address] Feb, [facility] [place] [facility] [address] [id number] [place] [address] Feb, [facility] [place] [facility] [address] [id number] [place] [address] Feb, [facility] [place] [facility] [address] [id number] [place] [address] Feb, [facility] [place] [facility] [address] [id number] [place] [address] Feb, [facility] [place] [facility] [address] [id number] [place] [address] Feb, [facility] [place] [facility] [address] [id number] [place] [address] Feb, [facility] [place] [facility] [address] [id number] [place] [address] Feb, [facility] [place] [facility] [address] [id number] [place] [address] Jan, [facility] [place] [facility] [address] [id number] [place] [address] Jan, [facility] [place] [facility] [address] [id number] [place] [address] Jan, [facility] [place] [facility] [address] [id number] [place] [address] Jan, [facility] [place] [facility] [address] [id number] [place] [address] Jan, [facility] [place] [facility] [address] [id number] [place] [address] Jan, [facility] [place] [facility] [address] [id number] [place] [address] Jan, [facility] [place] [facility] [address] [id number] [place] [address] Jan, [facility] [place] [facility] [address] [id number] [place] [address] Jan, [facility] [place] [facility] [address] [id number] [place] [address] Jan, [facility] [place] [facility] [address] [id number] [place] [address] Dec, [facility] [place] [facility] [address] [id number] [place] [address] Dec, [facility] [place] [facility] [address] [id number] [place] [address] Dec, [facility] [place] [facility] [address] [id number] [place] [address] Dec, [facility] [place] [facility] [address] [id number] [place] [address] Dec, [facility] [place] [facility] [address] [id number] [place] [address] Dec, [facility] [place] [facility] [address] [id number] [place] [address] Dec, [facility] [place] [facility] [address] [id number] [place] [address] Dec, [facility] [place] [facility] [address] [id number] [place] [address] Nov, [facility] [place] [facility] [address] [id number] [place] [address] Nov, [facility] [place] [facility] [address] [id number] [place] [address] Nov, [facility] [place] [facility] [address] [id number] [place] [address] Nov, [facility] [place] [facility] [address] [id number] [place] [address] Nov, [facility] [place] [facility] [address] [id number] [place] [address] Nov, [facility] [place] [facility] [address] [id number] [place] [address] Nov, [facility] [place] [facility] [address] [id number] [place] [address] Nov, [facility] [place] [facility] [address] [id number] [address] Nov, [facility] [address] [id number] [place] [address] Nov, [facility] [place] [facility] [address] [id number] [place] [address] Nov, [facility] [address] [id number] [place] [address] Nov, [facility] [place] [facility] [address] [id number] [place] [address] Nov, [facility] [address] [id number] [place] [address] Oct, [facility] [place] [facility] [address] [id number] [place] [address] Oct, [facility] [address] [id number] [place] [address] Oct, [facility] [place] [facility] [address] [id number] [place] [address] Oct, [facility] [address] [id number] [place] [address] Oct, [facility] [place] [facility] [address] [id number] [place] [address] Oct, [facility] [address] [id number] [place] [address] 18 Oct, 2013 [facility] [place] [facility] [address] [id number] [place] [address] 18 Oct, 2013 [facility] [place] [facility] [address] [id number] [place] [address] 17 Oct, 2013 [facility] [place] [facility] [address] [id number] [place] [address] 17 Oct, 2013 [facility] [place] [facility] [address] [id number] [place] [address] Oct, [facility] [place] [facility] [address] [id number] [place] [address] Oct, [facility] [address] [id number] [place] [address] Oct, [facility] [place] [facility] [address] [id number] [place] [address] Oct, [facility] [place] [facility] [address] [id number] [place] [address] Sep, [facility] [place] [facility] [address] [id number] [place] [address] Sep, [facility] [place] [facility] [address] [id number] [place] [address] Sep, [facility] [place] [facility] [address] [id number] [place] [address] Sep, [facility] [place] [facility] [address] [id number] [place] [address] Sep, [facility] [place] [facility] [address] [id number] [place] [address] Sep, [facility] [place] [facility] [address] [id number] [place] [address] Sep, [facility] [place] [facility] [address] [id number] [place] [address] Sep, [facility] [place] [facility] [address] [id number] [place] [address] Sep, [facility] [place] [facility] [address] [id number] [place] [address] Sep, [facility] [place] [facility] [address] [id number] [place] [address] Aug, [facility] [place] [facility] [address] [id number] [place] [address] Aug, [facility] [place] [facility] [address] [id number] [place] [address] Aug, [facility] [place] [facility] [address] [id number] [place] [address] 24 Aug, 2013 [facility] [place] [facility] [address] [id number] [place] [address] Aug, [facility] [place] [facility] [address] [id number] [place] [address] Aug, [facility] [place] [facility] [address] [id number] [place] [address] Aug, [facility] [place] [facility] [address] [id number] [place] [address] Aug, [facility] [place] [facility] [address] [id number], [place] [address] Aug, [facility] [place] [facility] [address] [id number] [place] [address] Aug, [facility] [place] [facility] [address] [id number], [place] [address] 18 Aug, 2013 [facility] [place] [facility] [address] [id number] [place] [address] 18 Aug, 2013 [facility] [place] [facility] [address] [id number], [place] [address] 18 Aug, 2013 [facility] [place] [facility] [address] [id number][place] [address] 18 Aug, 2013 [facility] [place] [facility] [address] [id number], [place] [address] 17 Aug, 2013 [facility] [place] [facility] [address] [id number], [place] [address] 14 Aug, 2013 [facility] [place] [facility] [address] [id number], [place] [address] 14 Aug, 2013 [facility] [place] [facility] [address] [id number], [place] [address] Aug, [facility] [place] [facility] [address] [id number] [place] [address] 20 Jul, 2013 [facility] [place] [facility] [address] [id number] [place] [address] 19 Jul, 2013 [facility] [place] [facility] [address] [id number] [place] [address] 18 Jul, 2013 [facility] [place] [facility] [address] [id number] [place] [address] 11 Jul, 2013 [facility] [place] [facility] [address] [id number] [place] [address] 11 Jul, 2013 [facility] [place] [facility] [address] [id number] [place] [address] Jun, [facility] [place] [facility] [address] [id number] [place] [address] Jun, [facility] [place] [facility] [address] [id number] [place] [address] Jun, [facility] [place] [facility] [address] [id number] [place] [address] 15 Jun, 2013 [facility] [place] [facility] [address] [id number] [place] [address] Jun, [facility] [place] [facility] [address] [id number] [place] [address] Jun, [facility] [place] [facility] [address] [id number] [place] [address] Jun, [facility] [place] [facility] [address] [id number] [place] [address] Jun, [facility] [place] [facility] [address] [id number] [place] [address] Jun, [facility] [place] [facility] [address] [id number] [place] [address] Jun, [facility] [place] [facility] [address] [id number] [place] [address] May, [facility] [place] [facility] [address] [id number] [place] [address] May, [facility] [place] [facility] [address] [id number] [place] [address] May, [facility] [place] [facility] [address] [id number] [place] [address] May, [facility] [place] [facility] [address] [id number] [place] [address] May, [facility] [place] [facility] [address] [id number] [place] [address] 16 May, 2013 [facility] [place] [facility] [address] [id number] [place] [address] May, [facility] [place] [facility] [address] [id number] [place] [address] May, [facility] [place] [facility] [address] [id number] [place] [address] May, [facility] [place] [facility] [address] [id number] [place] [address] Apr, [facility] [place] [facility] [address] [id number] [place] [address] Apr, [facility] [place] [facility] [address] [id number] [place] [address] Apr, [facility] [place] [facility] [address] [id number] [place] [address] Apr, [facility] [place] [facility] [address] [id number] [place] [address] Apr, [facility] [place] [facility] [address] [id number] [place] [address] Apr, [facility] [place] [facility] [address] [id number] [place] [address] Apr, [facility] [place] [facility] [address] [id number] [place] [address] March, [facility] [place] [facility] [address] [id number] [place] [address] Feb, [facility] [place] [facility] [address] [id number] [place] [address] Feb, [facility] [place] [facility] [address] [id number] [place] [address] Feb, [facility] [place] [facility] [address] [id number] [place] [address] Jan, [facility] [place] [facility] [address] [id number] [place] [address] Jan, [facility] [place] [facility] [address] [id number] [place] [address] Jan, [facility] [place] [facility] [address] [id number] [place] [address] Jan, [facility] [place] [facility] [address] [id number] [place] [address] Jan, [facility] [place] [facility] [address] [id number] [place] [address] Jan, [facility] [place] [facility] [address] [id number] [place] [address] Jan, [facility] [place] [facility] [address] [id number] [place] [address] Jan, [facility] [place] [facility] [address] [id number] [place] [address] 28 Dec, 2012 [facility] [place] [facility] [address] [id number] [place] [address] Dec, [facility] [place] [facility] [address] [id number] [place] [address] Dec, [facility] [place] [facility] [address] [id number] [place] [address] Dec, [facility] [place] [facility] [address] [id number] [place] [address] 07 Dec, 2012 [facility] [address] [id number] [place] [address] 06 Dec, 2012 [facility] [place] [facility] [address] [id number] [place] [address] 05 Dec, 2012 [facility] [place] [facility] [address] [id number] [place] [address] Nov, [facility] [place] [facility] [address] [id number] [place] [address] 24 Nov, 2012 [facility] [place] [facility] [address] [id number] [place] [address] 18 Nov, 2012 [facility] [address] [id number] [place] [address] 15 Nov, 2012 [facility] [address] [id number] [place] [address] Nov, [facility] [address] [id number] [place] [address] Nov, [facility] [address] [id number] [place] [address] Nov, [facility] [address] [id number] [place] [address] Oct, [facility] [address] [id number] [place] [address] Oct, [facility] [place] [facility] [address] [id number] [place] [address] Oct, [facility] [place] [facility] [address] [id number] [place] [address] Oct, [facility] [place] [facility] [address] [id number] [place] [address] 17 Oct, 2012 [facility] [place] [facility] [address] [id number] [place] [address] Oct, [facility] [place] [facility] [address] [id number] [place] [address] Oct, [facility] [place] [facility] [address] [id number] [place] [address] Oct, [facility] [place] [facility] [address] [facility] [id number] [place] [address] Oct, [facility] [place] [facility] [address] [id number] [place] [address] Oct, [facility] [place] [facility] [address] [id number] [place] [address] Oct, [facility] [place] [facility] [address] [id number] [place] [address] Oct, [facility] [place] [facility] [address] [facility] [id number] [place] [address] Sep, [facility] [place] [facility] [address] [id number], [place] [address] Sep, [facility] [place] [facility] [address] [id number], [place] [address] Sep, [facility] [place] [facility] [address] [facility] [id number], [place] [address] Sep, [facility] [place] [facility] [address] [id number], [place] [address] Sep, [facility] [place] [facility] [address] [id number], [place] [address] Sep, [facility] [place] [facility] [address] [id number], [place] [address] Sep, [facility] [place] [facility] [address] [facility] [id number], [place] [address] Sep, [facility] [place] [facility] [address] [facility] [id number], [place] [address] Sep, [facility] [place] [facility] [address] [id number] [place] [address] Sep, [facility] [place] [facility] [address] [id number] [place] [address] Sep, [facility] [place] [facility] [address] [id number] [place] [address] Aug, [facility] [place] [facility] [address] [id number] [place] [address] Aug, [facility] [place] [facility] [address] [id number] [place] [address] Aug, [facility] [place] [facility] [address] [id number] [place] [address] Aug, [facility] [place] [facility] [address] [id number] [place] [address] Aug, [facility] [place] [facility] [address] [id number] [place] [address] Aug, [facility] [place] [facility] [address] [id number] [place] [address] Aug, [facility] [place] [facility] [address] [id number] [place] [address] Aug, [facility] [place] [facility] [address] [facility] [id number] [place] [address] Aug, [facility] [place] [facility] [address] [id number] [place] [address] Aug, [facility] [place] [facility] [address] [id number] [place] [address] 22 Jul, 2012 [facility] [place] [facility] [address] [id number] [place] [address] 20 Jul, 2012 [facility] [place] [facility] [address] [id number] [place] [address] 10 Jul, 2012 [facility] [place] [facility] [address] [id number] [place] [address] Jul, [facility] [place] [facility] [address] [id number] [place] [address] Jun, [facility] [place] [facility] [address] [id number] [place] [address] Jun, [facility] [place] [facility] [address] [id number] [place] [address] Jun, [facility] [place] [facility] [address] [id number] [place] [address] Jun, [facility] [place] [facility] [address] [id number] [place] [address] Jun, [facility] [place] [facility] [address] [id number] [place] [address] Jun, [facility] [place] [facility] [address] [id number] [place] [address] Jun, [facility] [place] [facility] [address] [id number] [place] [address] May, [facility] [place] [facility] [address] [id number] [place] [address] May, [facility] [place] [facility] [address] [id number] [place] [address] May, [facility] [place] [facility] [address] [id number] [place] [address] May, [facility] [place] [facility] [address] [id number] [place] [address] May, [facility] [place] [facility] [address] [id number] [place] [address] Apr, [facility] [place] [facility] [address] [id number] [place] [address] Apr, [facility] [place] [facility] [address] [id number] [place] [address] Apr, [facility] [place] [facility] [address] [id number] [place] [address] Apr, [facility] [address] [id number] [place] [address] Apr, [facility] [place] [facility] [address] [id number] [place] [address] March, [facility] [place] [facility] [address] [id number] [place] [address] March, [facility] [place] [facility] [address] [id number] [place] [address] March, [facility] [place] [facility] [address] [id number] [place] [address] March, [facility] [place] [facility] [address] [id number] [place] [address] March, [facility] [address] [id number] [place] [address] March, [facility] [place] [facility] [address] [id number] [place] [address] March, [facility] [place] [facility] [address] [id number] [place] [address] March, [facility] [place] [facility] [address] [id number] [place] [address] March, [facility] [place] [facility] [address] [id number] [place] [address] March, [facility] [place] [facility] [address] [id number] [place] [address] Feb, [facility] [place] [facility] [address] [id number] [place] [address] Feb, [facility] [place] [facility] [address] [id number] [place] [address] Feb, [facility] [place] [facility] [address] [id number] [place] [address] Feb, [facility] [place] [facility] [address] [id number] [place] [address] 17 Feb, 2012 [facility] [address] [id number] [place] [address] 17 Feb, [address] [facility] [place] [facility] [address] [id number] [place] [address] Feb, [facility] [address] [id number] [place] [address] Feb, [facility] [address] [id number] [place] [address] Feb, [facility] [address] [id number] [place] [address] 08 Jan, 2012 [facility] [address] [id number] [place] [address] Jan, [facility] [address] [id number] [place] [address] Jan, [facility] [address] [id number] [place] [address] Jan, [facility] [address] [id number] [place] [address] Dec, [facility] [address] [id number] [place] [address] Dec, [facility] [address] [id number] [place] [address] Nov, [facility] [address] [id number] [place] [address] Nov, [facility] [place] [facility] [address] [id number] [place] [address] Nov, [facility] [place] [facility] [address] [id number] [place] [address] Nov, [facility] [place] [facility] [address] [id number] [place] [address] Nov, [facility] [address] [facility] [id number] [address] Oct, [facility] [address] [facility] [id number], [place] [address] Oct, [facility] [id number] [address] Oct, [facility] [id number], [place] [address] Oct, [facility] [address] [facility] [id number], [place] [address] Oct, [facility] [id number] [place] [address] Oct, [facility] [id number], [place] [address] Oct, [facility] [id number] [address] Oct, [facility] [address] [id number], [place] [address] Sep, IMMUNIZATIONS No Known Immunizations SOCIAL HISTORY Never Assessed REASON FOR VISIT [facility] PLAN OF CARE VITAL SIGNS MEDICATIONS Unknown Medications RESULTS No Results PROCEDURES No Known procedures INSTRUCTIONS MEDICATIONS ADMINISTERED No Known Medications MEDICAL (GENERAL) HISTORY Type Description Date 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
--- OUTSIDE RECORDS SUMMARY | 2019-04-16 15:41 | XMS REPORT ---
Author Author Migration, Doctor Organization [facility] Address Unknown Phone Unavailable Care Team Providers Care Supervisor Burling [employer] Joining Name Role Phone Migration, Doctor Unavailable Unavailable PROBLEMS Type Condition ICD9-CM Code PZI21-AR Code Onset Dates Condition Status SNOMED Code Problem Coronary artery disease I25.10 Active 23740759 Problem Hypertension I10 Active 80151467 Problem Other chronic pain G89.29 Active 41061067 Problem Hyperlipidemia E78.5 Active 24868424 Problem Type 2 diabetes mellitus without complication, without long-term current use of insulin E11.9 Active 282716380 Problem Low back pain M54.5 Active 884427258 Problem Pharyngeal dysphagia R13.13 Active 65375006960709 Problem Anxiety F41.9 Active 07454760 Problem Peripheral vascular disease I73.9 Active 820380611 Problem Suprapubic catheter Z93.59 Active 354009027 Problem Reactive depression F32.9 Active 84337797 Problem Neurogenic bladder N31.9 Active 059446633 Problem Ventral hernia without obstruction or gangrene K43.9 Active 399524753 Problem Insomnia G47.00 Active 238333279 Problem Paroxysmal atrial fibrillation I48.0 Active 567477517 Problem 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 Active 40088985 Problem Encounter for suprapubic catheter care Z43.5 Active [id number] ALLERGIES No Information ENCOUNTERS Encounter Location Date Diagnosis Via [facility] [address] [place] [id number] Jun, Via [facility] [address] [place] [id number] March, [facility] [address] [facility] [id number], [place] [address] Feb, Other chronic pain G89.29 [facility] [address] [place] [id number] Feb, Neurogenic bladder N31.9 and Suprapubic catheter Z93.59 [facility] [address] [facility] [id number] [place] [address] Jan, Anxiety F41.9 [facility] [id number] [place] [address] Dec, Anxiety F41.9 [facility] [id number] [place] [address] Dec, Other chronic pain G89.29 and Anxiety F41.9 [facility] [id number] [place] [address] Dec, Via [employer] [address] [place] [id number] Dec, Neurogenic bladder N31.9 and Suprapubic catheter Z93.59 [facility] [id number] [place] [address] Nov, Other chronic pain G89.29 and Anxiety F41.9 [facility] [id number] [place] [address] Nov, Via [employer] [address] [place] [id number] Nov, Suprapubic catheter Z93.59 [facility] [id number] [place] [address] Oct, Other chronic pain G89.29 and Anxiety F41.9 [facility] [id number] [place] [address] Oct, [facility] [id number] [place] [address] Oct, Suprapubic catheter Z93.59 [facility] [id number] [place] [address] Oct, Via [employer] [address] [place] [id number] Oct, [facility] [id number] [place] [address] Oct, Anxiety F41.9 [facility] [address] [id number], [place] [address] 04 Oct, 2018 Anxiety F41.9 Via [employer] [facility] [address] [place] [address] Oct, Other chronic pain G89.29 [facility] [address] [id number], [place] [address] 14 Sep, 2018 Other chronic pain G89.29 Via [employer] [address] [place] [id number] Sep, Suprapubic catheter Z93.59 and Cervicalgia M54.2 [facility] [address] [id number] [place] [address] Sep, [facility] [address] [id number] [place] [address] Sep, [facility] [address] [facility] [id number] [place] [address] Sep, Via [facility] [address] [place] [address] Aug, Cystitis N30.90 [facility] [address] [id number] [place] [address] Aug, [facility] [address] [id number] [place] [address] Aug, Other chronic pain G89.29 [facility] [address] [id number] [place] [address] Aug, Via [employer] [address] [place] [id number] Aug, Encounter for suprapubic catheter care Z43.5 [facility] [address] [id number] [place] [address] Jul, Via [employer] [address] [place] [address] Jul, [facility] [address] [id number] [place] [address] Jul, Other chronic pain G89.29 [facility] [address] [id number], [place] [address] Jul, [facility] [address] [facility] [id number], [place] [address] Jul, Via [employer] [address] [place] [id number] Jun, 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 [facility] [id number] [place] [address] Jun, Other chronic pain G89.29 [facility] [address] [place] [id number] [place] [address] Jun, Via [employer] [address] [place] [address] May, Anxiety F41.9 ; Type 2 diabetes mellitus without complication, without long-term current use of insulin E11.9 ; Hypertension I10 ; Low back pain M54.5 ; Paroxysmal atrial fibrillation I48.0 and 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 [facility] [address] [id number], [place] [address] May, Other chronic pain G89.29 Via [employer] [address] [place] [address] May, Low back pain M54.5 [facility] [address] [id number], [place] [address] May, [facility] [address] [place] [address] [id number] [place] [address] Apr, Other chronic pain G89.29 [facility] [address]00565[address], [place] [address] Apr, [facility] [id number] [place] [address] Apr, Via [employer] [address] [place] [id number] Apr, Closed compression fracture of L3 lumbar vertebra with routine healing, subsequent encounter S32.030D [facility] [employer] [address] [place] [address] 14 Apr, 2018 Low back pain M54.5 Via [employer] [address] [place] [address] 12 Apr, 2018 Coccydynia M53.3 [facility] [address] [facility] [id number], [place] [address] March, [facility] [address] [facility] [id number] [place] [address] March, Other chronic pain G89.29 [facility] [address] [id number] [place] [address] March, [facility] [address] [facility] [id number] [place] [address] March, [facility] [id number] [place] [address] Feb, [facility] [address] [facility] [id number] [place] [address] Feb, Other chronic pain G89.29 Via [employer] [address] [place] [address] Feb, Other chronic pain G89.29 and Anxiety F41.9 [facility] [address] [id number], [place] [address] Feb, [facility] [address] [facility] [id number], [place] [address] Jan, [facility] [address] [facility] [id number], [place] [address] Jan, [facility] [address] [facility] [id number] [place] [address] 13 Jan, 2018 [facility] [address] [facility] [id number], [place] [address] 02 Jan, 2018 [facility] [address] [facility] [id number] [place] [address] Dec, Via [employer] [address] [place] [address] Dec, Peripheral vascular disease I73.9 ; 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 ; Other chronic pain G89.29 ; Anxiety F41.9 ; Reactive depression F32.9 ; Insomnia G47.00 and Type 2 diabetes mellitus without complication, without long-term current use of insulin E11.[address] [id number] [place] [address] Nov, [facility] [address] [id number][place] [address] Nov, Anxiety F41.9 [facility] [address] [facility] [id number], [place] [address] Nov, [facility] [address] [id number][place] [address] Nov, Anxiety F41.9 [facility] [employer] [address] [place] [address] Nov, Status post surgery Z98.890 ; Confused R41.0 ; Anxiety F41.9 and Other chronic pain G89.29 [facility] [address] [id number][place] [id number] Nov, Other chronic pain G89.29 [facility] [address] [facility] [id number], [place] [address] Oct, [facility] [address] [id number][place] [address] Oct, Other chronic pain G89.29 [facility] [address] [facility] [id number], [place] [address] Oct, Anxiety F41.9 [facility] [address] [id number][place] [address] Sep, Other chronic pain G89.29 [facility] [address] [id number][place] [address] Sep, Via [employer] [address] [place] [address] Aug, Dysuria R30.0 and Anxiety F41.9 [facility] [id number] [place] [address] Aug, [facility] [id number] [place] [id number] Aug, Other chronic pain G89.29 [facility] [id number] [place] [address] Jul, Other chronic pain G89.29 [facility] [id number] [place] [id number] Jun, [facility] [id number] [place] [id number] Jun, Other chronic pain G89.29 [facility] [id number] [place] [address] Jun, [facility] [id number] [place] [address] May, Other chronic pain G89.29 [facility] [id number] [place] [address] Apr, Other chronic pain G89.29 Via [employer] [address] [place] [id number] Apr, Reactive depression F32.9 and Pharyngeal dysphagia R13.13 [facility] [id number] [place] [address] Apr, Urinary tract infection without hematuria, site unspecified N39.0 [facility] [id number] [place] [address] March, Other chronic pain G89.29 [facility] [id number] [place] [address] Feb, Other chronic pain G89.29 [facility] [id number] [place] [address] Feb, [facility] [id number] [address] Feb, [facility] [employer] [address] [place] [id number] Feb, Dysuria R30.0 and Ventral hernia without obstruction or gangrene K43.9 [facility] [address] [facility] [id number] [place] [address] Jan, Other chronic pain G89.29 [facility] [id number] [place] [id number] Dec, Other chronic pain G89.29 [facility] [address] [place] [address] Nov, Other chronic pain G89.29 [facility] [employer] [address] [place] [address] Nov, Lymphadenitis I88.9 [facility] [id number] [place] [address] Nov, Other chronic pain G89.29 [facility] [id number] [place] [address] Nov, [facility] [id number] [place] [id number] Nov, Other chronic pain G89.29 [facility] [employer] [address] [place] [id number] Oct, Low back pain M54.5 ; Hypertension I10 and Type 2 diabetes mellitus without complication, without long-term current use of insulin E11.9 [facility] [address] [facility] [id number], [place] [address] Oct, [facility] [id number] [place] [address] Oct, [facility] [address] [id number], [place] [address] Oct, [facility] [address]00565100[place], [place] [address] Oct, [facility] [address] [facility] [id number], [place] [address] Sep, [facility] [address] [facility] [id number], [place] [address] Sep, [facility] [address]00565100[place], [place] [address] Aug, Other chronic pain G89.29 [facility] [address] [facility] [id number], [place] [address] Jul, [facility] [address] [facility] [id number] [place] [address] Jul, [facility] [address]00565100[place], [place] [address] Jul, [facility] [address]00565100[place], [place] [address] Jun, [facility] [address] [id number], [place] [address] Jun, [facility] [address] [place] [address] Jun, Low back pain M54.5 ; Other chronic pain G89.29 and Coronary artery disease I25.10 [facility] [address] [id number], [place] [address] Jun, [facility] [address] [id number], [place] [address] May, [facility] [address] [id number], [place] [address] May, [facility] [address] [id number], [place] [address] May, Other chronic pain G89.29 [facility] [address] [id number], [place] [address] May, [facility] [address]00565100[place], [place] [address] Apr, [facility] [address] [id number], [place] [address] Apr, Acute cystitis without hematuria N30.00 [facility] [address]00565100[place], [place] [address] 16 Apr, 2016 Acute cystitis without hematuria N30.00 ; Coronary artery disease I25.10 ; Low back pain M54.5 and Other chronic pain G89.29 [facility] [address]00565100[place], [place] [address] Apr, Other chronic pain G89.29 [facility] [address] [id number], [place] [address] March, Other chronic pain G89.29 [facility] [id number] [place] [address] Feb, [facility] [id number] [place] [address] Feb, Arthritis M19.90 [facility] [id number] [place] [address] Feb, [facility] [address]00565100[place], [place] [address] Jan, [facility] [address]00565100[place], [place] [address] Jan, [facility] [address]00565100[place], [place] [address] Jan, Other chronic pain G89.29 [facility] [address]00565100[place], [place] [address] Jan, Hypertension I10 ; Coronary artery disease I25.10 and Insomnia G47.00 [facility] [address]00565100[place], [place] [address] Jan, [facility] [address] [facility] [id number], [place] [address] Dec, Right hip pain M25.551 [facility] [address] [facility] [id number], [place] [address] Dec, [facility] [address] [facility] [id number], [place] [address] Dec, [facility] [address] [facility] [id number] [place] [address] Dec, [facility] [address] [facility] [id number] [place] [address] Dec, Other chronic pain G89.29 [facility] [address]00565100[place], [place] [address] Dec, [facility] [id number] [place] [address] Nov, [facility] [address]00565100[place], [place] [address] Nov, Other chronic pain G89.29 [facility] [address]00565100[place], [place] [address] Nov, Right hip pain M25.551 and Coronary artery disease I25.10 [facility] [address]00565100[place], [place] [address] Nov, Other chronic pain G89.29 [facility] [address]00565100[place], [place] [address] Oct, [facility] [address]00565100[place], [place] [address] Oct, [facility] [address]00565100[place], [place] [address] Sep, [facility] [address]00565100[place], [place] [address] Sep, [facility] [address] [facility] [id number], [place] [address] Aug, [facility] [id number] [place] [address] Aug, Hypertension I10 ; Coronary artery disease I25.10 and Arthritis M19.90 [facility] [address] [id number], [place] [address] Jun, [facility] [id number] [place] [address] Jun, Essential hypertension, benign 401.1 ; Other chronic pain 338.29 and Chronic airway obstruction, not elsewhere classified 496 [facility] [address]00565100[place], [place] [address] Jun, [facility] [address]00565100[place], [place] [address] Jun, [facility] [address]00565100[place], [place] [address] Jun, [facility] [address]00565100[place], [place] [address] May, [facility] [address]00565100[place], [place] [address] May, [facility] [address]00565100[place], [place] [address] Apr, [facility] [address] [id number], [place] [address] Apr, [facility] [address] [id number] [place] [address] Apr, [facility] [address] [id number], [place] [address] March, [facility] [address] [id number] [place] [address] March, [facility] [address] [id number] [place] [address] March, [facility] [address] [id number] [place] [address] March, [facility] [address] [id number] [place] [address] March, Sialadenitis 527.2 [facility] [address] [id number] [place] [address] Feb, [facility] [address] [id number] [place] [address] Feb, [facility] [address] [id number] [place] [address] Feb, [facility] [address] [id number] [place] [address] Feb, [facility] [address] [facility] [id number] [place] [address] Feb, [facility] [address] [id number] [place] [address] Jan, [facility] [address] [id number] [place] [address] Jan, [facility] [address] [facility] [id number] [place] [address] Jan, [facility] [address] [facility] [id number] [place] [address] Jan, [facility] [address] [id number] [place] [address] Jan, [facility] [address] [id number] [place] [address] Jan, [facility] [address] [id number] [place] [address] Dec, [facility] [address] [id number] [place] [address] Dec, [facility] [place] [facility] [address] [id number] [place] [address] Dec, [facility] [place] [facility] [address] [id number] [place] [address] Dec, [facility] [place] [facility] [address] [id number] [place] [address] Dec, [facility] [place] [facility] [address] [id number] [place] [address] Dec, [facility] [place] [facility] [address] [id number] [place] [address] Nov, [facility] [place] [facility] [address] [id number] [place] [address] Nov, [facility] [place] [facility] [address] [id number] [place] [address] Nov, [facility] [place] [facility] [address] [id number] [place] [address] Nov, [facility] [place] [facility] [address] [id number] [place] [address] Nov, [facility] [place] [facility] [address] [id number] [place] [address] Nov, [facility] [place] [facility] [address] [id number], [place] [address] Nov, [facility] [place] [facility] [address] [id number], [place] [address] Nov, [facility] [place] [facility] [address] [id number], [place] [address] Nov, [facility] [place] [facility] [address] [id number], [place] [address] Nov, [facility] [place] [facility] [address] [id number] [place] [address] Nov, [facility] [place] [facility] [address] [id number] [place] [address] Nov, [facility] [place] [facility] [address] [id number] [place] [address] Nov, [facility] [place] [facility] [address] [id number] [place] [address] Nov, [facility] [place] [facility] [address] [id number] [place] [address] Oct, [facility] [place] [facility] [address] [id number] [place] [address] Oct, [facility] [place] [facility] [address] [id number] [place] [address] Oct, [facility] [place] [facility] [address] [id number] [place] [address] Oct, [facility] [place] [facility] [address] [id number] [place] [address] Oct, [facility] [place] [facility] [address] [id number] [place] [address] Oct, [facility] [place] [facility] [address] [id number] [place] [address] Oct, [facility] [place] [facility] [address] [id number] [place] [address] Oct, [facility] [place] [facility] [address] [id number] [place] [address] Oct, [facility] [place] [facility] [address] [id number] [place] [address] Sep, [facility] [place] [facility] [address] [id number] [place] [address] Sep, [facility] [place] [facility] [address] [id number] [place] [address] Sep, [facility] [place] [facility] [address] [id number] [place] [address] Sep, [facility] [place] [facility] [address] [id number] [place] [address] Sep, [facility] [place] [facility] [address] [id number] [place] [address] Sep, [facility] [place] [facility] [address] [id number] [place] [address] Sep, [facility] [place] [facility] [address] [id number] [place] [address] Sep, [facility] [place] [facility] [address] [id number] [place] [address] Sep, [facility] [place] [facility] [address] [id number] [place] [address] Sep, [facility] [place] [facility] [address] [id number] [place] [address] Sep, [facility] [place] [facility] [address] [id number] [place] [address] Sep, [facility] [place] [facility] [address] [id number] [place] [address] Aug, [facility] [place] [facility] [address] [id number], [place] [address] Aug, [facility] [place] [facility] [address] [id number], [place] [address] Aug, [facility] [place] [facility] [address] [id number], [place] [address] Aug, [facility] [place] [facility] [address] [id number] [place] [address] Aug, [facility] [place] [facility] [address] [id number], [place] [address] Aug, [facility] [place] [facility] [address] [id number] [place] [address] Aug, [facility] [place] [facility] [address] [id number] [place] [address] 17 Aug, 2014 [facility] [place] [facility] [address] [id number] [place] [address] 30 Jul, 2013 [facility] [place] [facility] [address] [id number] [place] [address] 30 Jul, 2013 [facility] [place] [facility] [address] [id number] [place] [address] 30 Jul, 2013 [facility] [place] [facility] [address] [id number] [place] [address] 30 Jul, 2013 [facility] [place] [facility] [address] [id number] [place] [address] 25 Jul, 2013 [facility] [place] [facility] [address] [id number] [place] [address] 25 Jul, 2013 [facility] [place] [facility] [address] [id number] [place] [address] 15 Jul, 2013 [facility] [place] [facility] [address] [id number] [place] [address] 15 Jul, 2013 [facility] [place] [facility] [address] [id number] [place] [address] 11 Jul, 2013 [facility] [place] [facility] [address] [id number] [place] [address] 11 Jul, 2013 [facility] [place] [facility] [address] [id number] [place] [address] Jun, [facility] [place] [facility] [address] [id number] [place] [address] Jun, [facility] [place] [facility] [address] [id number] [place] [address] Jun, [facility] [place] [facility] [address] [id number] [place] [address] Jun, [facility] [place] [facility] [address] [id number] [place] [address] Jun, [facility] [place] [facility] [address] [id number] [place] [address] Jun, [facility] [place] [facility] [address] [id number] [place] [address] Jun, [facility] [place] [facility] [address] [id number] [place] [address] Jun, [facility] [place] [facility] [address] [id number] [place] [address] Jun, [facility] [place] [facility] [address] [id number] [place] [address] Jun, [facility] [place] [facility] [address] [id number] [place] [address] Jun, [facility] [place] [facility] [address] [id number] [place] [address] Jun, [facility] [place] [facility] [address] [id number] [place] [address] Jun, [facility] [place] [facility] [address] [id number] [place] [address] Jun, [facility] [place] [facility] [address] [id number] [place] [address] Jun, [facility] [place] [facility] [address] [id number] [place] [address] Jun, [facility] [place] [facility] [address] [id number] [place] [address] Jun, [facility] [place] [facility] [address] [id number] [place] [address] Jun, [facility] [place] [facility] [address] [id number] [place] [address] Jun, [facility] [place] [facility] [address] [id number] [place] [address] Jun, [facility] [place] [facility] [address] [id number] [place] [address] Jun, [facility] [place] [facility] [address] [id number] [place] [address] Jun, [facility] [place] [facility] [address] [id number] [place] [address] May, [facility] [place] [facility] [address] [id number] [place] [address] May, [facility] [place] [facility] [address] [id number] [place] [address] May, [facility] [place] [facility] [address] [id number] [place] [address] May, [facility] [place] [facility] [address] [id number] [place] [address] May, [facility] [place] [facility] [address] [id number] [place] [address] May, [facility] [place] [facility] [address] [id number] [place] [address] May, [facility] [place] [facility] [address] [id number] [place] [address] May, [facility] [place] [facility] [address] [id number] [place] [address] May, [facility] [place] [facility] [address] [id number] [place] [address] May, [facility] [place] [facility] [address] [id number] [place] [address] May, [facility] [place] [facility] [address] [id number] [place] [address] May, [facility] [place] [facility] [address] [id number] [place] [address] May, [facility] [place] [facility] [address] [id number] [place] [address] Apr, [facility] [place] [facility] [address] [id number] [place] [address] Apr, [facility] [place] [facility] [address] [id number] [place] [address] Apr, [facility] [place] [facility] [address] [id number] [place] [address] Apr, [facility] [place] [facility] [address] [id number] [place] [address] Apr, [facility] [place] [facility] [address] [id number] [place] [address] Apr, [facility] [place] [facility] [address] [id number] [place] [address] Apr, [facility] [place] [facility] [address] [id number] [place] [address] Apr, [facility] [place] [facility] [address] [id number] [place] [address] Apr, [facility] [place] [facility] [address] [id number] [place] [address] March, [facility] [place] [facility] [address] [id number] [place] [address] March, [facility] [place] [facility] [address] [id number] [place] [address] March, [facility] [place] [facility] [address] [id number] [place] [address] March, [facility] [place] [facility] [address] [id number] [place] [address] March, [facility] [place] [facility] [address] [id number] [place] [address] March, [facility] [place] [facility] [address] [id number] [place] [address] March, [facility] [place] [facility] [address] [id number] [place] [address] March, [facility] [address] [id number] [place] [address] March, [facility] [place] [facility] [address] [id number] [place] [address] March, [facility] [place] [facility] [address] [id number] [place] [address] March, [facility] [place] [facility] [address] [id number] [place] [address] March, [facility] [place] [facility] [address] [id number] [place] [address] March, [facility] [place] [facility] [address] [id number] [place] [address] March, [facility] [place] [facility] [address] [id number] [place] [address] March, [facility] [place] [facility] [address] [id number] [place] [address] March, [facility] [place] [facility] [address] [id number] [place] [address] March, [facility] [place] [facility] [address] [id number] [place] [address] March, [facility] [place] [facility] [address] [id number] [place] [address] March, [facility] [place] [facility] [address] [id number] [place] [address] March, [facility] [place] [facility] [address] [id number] [place] [address] Feb, [facility] [place] [facility] [address] [id number] [place] [address] Feb, [facility] [place] [facility] [address] [id number] [place] [address] Feb, [facility] [place] [facility] [address] [id number] [place] [address] Feb, [facility] [place] [facility] [address] [id number] [place] [address] Feb, [facility] [place] [facility] [address] [id number] [place] [address] Feb, [facility] [place] [facility] [address] [id number] [place] [address] Feb, [facility] [place] [facility] [address] [id number] [place] [address] Feb, [facility] [place] [facility] [address] [id number] [place] [address] Jan, [facility] [place] [facility] [address] [id number] [place] [address] Jan, [facility] [place] [facility] [address] [id number] [place] [address] Jan, [facility] [place] [facility] [address] [id number] [place] [address] Jan, [facility] [place] [facility] [address] [id number] [place] [address] Jan, [facility] [place] [facility] [address] [id number] [place] [address] Jan, [facility] [place] [facility] [address] [id number] [place] [address] Jan, [facility] [place] [facility] [address] [id number] [place] [address] Jan, [facility] [place] [facility] [address] [id number] [place] [address] Jan, [facility] [place] [facility] [address] [id number] [place] [address] Jan, [facility] [place] [facility] [address] [id number] [place] [address] Dec, [facility] [place] [facility] [address] [id number] [place] [address] Dec, [facility] [place] [facility] [address] [id number] [place] [address] Dec, [facility] [place] [facility] [address] [id number] [place] [address] Dec, [facility] [place] [facility] [address] [id number] [place] [address] Dec, [facility] [place] [facility] [address] [id number] [place] [address] Dec, [facility] [place] [facility] [address] [id number] [place] [address] Dec, [facility] [place] [facility] [address] [id number] [place] [address] Dec, [facility] [place] [facility] [address] [id number] [place] [address] Nov, [facility] [place] [facility] [address] [id number] [place] [address] Nov, [facility] [place] [facility] [address] [id number] [place] [address] Nov, [facility] [place] [facility] [address] [id number] [place] [address] Nov, [facility] [place] [facility] [address] [id number] [place] [address] Nov, [facility] [place] [facility] [address] [id number] [place] [address] Nov, [facility] [place] [facility] [address] [id number] [place] [address] Nov, [facility] [place] [facility] [address] [id number] [place] [address] Nov, [facility] [place] [facility] [address] [id number], [place] [address] Nov, [facility] [address] [id number] [place] [address] Nov, [facility] [place] [facility] [address] [id number] [place] [address] Nov, [facility] [address] [id number] [place] [address] Nov, [facility] [place] [facility] [address] [id number] [place] [address] Nov, [facility] [address] [id number] [place] [address] Oct, [facility] [place] [facility] [address] [id number] [place] [address] Oct, [facility] [address] [id number] [place] [address] Oct, [facility] [place] [facility] [address] [id number] [place] [address] Oct, [facility] [address] [id number] [place] [address] Oct, [facility] [place] [facility] [address] [id number] [place] [address] Oct, [facility] [address] [id number] [place] [address] 18 Oct, 2013 [facility] [place] [facility] [address] [id number] [place] [address] 18 Oct, 2013 [facility] [place] [facility] [address] [id number] [place] [address] 17 Oct, 2013 [facility] [place] [facility] [address] [id number] [place] [address] 17 Oct, 2013 [facility] [place] [facility] [address] [id number] [place] [address] Oct, [facility] [place] [facility] [address] [id number] [place] [address] Oct, [facility] [address] [id number] [place] [address] Oct, [facility] [place] [facility] [address] [id number] [place] [address] Oct, [facility] [place] [facility] [address] [id number] [place] [address] Sep, [facility] [place] [facility] [address] [id number] [place] [address] Sep, [facility] [place] [facility] [address] [id number] [place] [address] Sep, [facility] [place] [facility] [address] [id number] [place] [address] Sep, [facility] [place] [facility] [address] [id number] [place] [address] Sep, [facility] [place] [facility] [address] [id number] [place] [address] Sep, [facility] [place] [facility] [address] [id number] [place] [address] Sep, [facility] [place] [facility] [address] [id number] [place] [address] Sep, [facility] [place] [facility] [address] [id number] [place] [address] Sep, [facility] [place] [facility] [address] [id number] [place] [address] Sep, [facility] [place] [facility] [address] [id number] [place] [address] Aug, [facility] [place] [facility] [address] [id number] [place] [address] Aug, [facility] [place] [facility] [address] [id number] [place] [address] Aug, [facility] [place] [facility] [address] [id number] [place] [address] 24 Aug, 2013 [facility] [place] [facility] [address] [id number] [place] [address] Aug, [facility] [place] [facility] [address] [id number] [place] [address] Aug, [facility] [place] [facility] [address] [id number] [place] [address] Aug, [facility] [place] [facility] [address] [id number] [place] [address] Aug, [facility] [place] [facility] [address] [id number], [place] [address] Aug, [facility] [place] [facility] [address] [id number] [place] [address] Aug, [facility] [place] [facility] [address] [id number], [place] [address] 18 Aug, 2013 [facility] [place] [facility] [address] [id number] [place] [address] 18 Aug, 2013 [facility] [place] [facility] [address] [id number], [place] [address] 18 Aug, 2013 [facility] [place] [facility] [address] [id number], [place] [address] 18 Aug, 2013 [facility] [place] [facility] [address] [id number], [place] [address] 17 Aug, 2013 [facility] [place] [facility] [address] [id number], [place] [address] 14 Aug, 2013 [facility] [place] [facility] [address] [id number], [place] [address] 14 Aug, 2013 [facility] [place] [facility] [address] [id number], [place] [address] Aug, [facility] [place] [facility] [address] [id number] [place] [address] 20 Jul, 2013 [facility] [place] [facility] [address] [id number] [place] [address] 19 Jul, 2013 [facility] [place] [facility] [address] [id number] [place] [address] 18 Jul, 2013 [facility] [place] [facility] [address] [id number] [place] [address] 11 Jul, 2013 [facility] [place] [facility] [address] [id number] [place] [address] 11 Jul, 2013 [facility] [place] [facility] [address] [id number] [place] [address] Jun, [facility] [place] [facility] [address] [id number] [place] [address] Jun, [facility] [place] [facility] [address] [id number] [place] [address] Jun, [facility] [place] [facility] [address] [id number] [place] [address] 15 Jun, 2013 [facility] [place] [facility] [address] [id number] [place] [address] Jun, [facility] [place] [facility] [address] [id number] [place] [address] Jun, [facility] [place] [facility] [address] [id number] [place] [address] Jun, [facility] [place] [facility] [address] [id number] [place] [address] Jun, [facility] [place] [facility] [address] [id number] [place] [address] Jun, [facility] [place] [facility] [address] [id number] [place] [address] Jun, [facility] [place] [facility] [address] [id number] [place] [address] May, [facility] [place] [facility] [address] [id number] [place] [address] May, [facility] [place] [facility] [address] [id number] [place] [address] May, [facility] [place] [facility] [address] [id number] [place] [address] May, [facility] [place] [facility] [address] [id number] [place] [address] May, [facility] [place] [facility] [address] [id number] [place] [address] 16 May, 2013 [facility] [place] [facility] [address] [id number] [place] [address] May, [facility] [place] [facility] [address] [id number] [place] [address] May, [facility] [place] [facility] [address] [id number] [place] [address] May, [facility] [place] [facility] [address] [id number] [place] [address] Apr, [facility] [place] [facility] [address] [id number] [place] [address] Apr, [facility] [place] [facility] [address] [id number] [place] [address] Apr, [facility] [place] [facility] [address] [id number] [place] [address] Apr, [facility] [place] [facility] [address] [id number] [place] [address] Apr, [facility] [place] [facility] [address] [id number] [place] [address] Apr, [facility] [place] [facility] [address] [id number] [place] [address] Apr, [facility] [place] [facility] [address] [id number] [place] [address] March, [facility] [place] [facility] [address] [id number] [place] [address] Feb, [facility] [place] [facility] [address] [id number] [place] [address] Feb, [facility] [place] [facility] [address] [id number] [place] [address] Feb, [facility] [place] [facility] [address] [id number] [place] [address] Jan, [facility] [place] [facility] [address] [id number] [place] [address] Jan, [facility] [place] [facility] [address] [id number] [place] [address] Jan, [facility] [place] [facility] [address] [id number] [place] [address] Jan, [facility] [place] [facility] [address] [id number] [place] [address] Jan, [facility] [place] [facility] [address] [id number] [place] [address] Jan, [facility] [place] [facility] [address] [id number] [place] [address] Jan, [facility] [place] [facility] [address] [id number] [place] [address] Jan, [facility] [place] [facility] [address] [id number] [place] [address] 28 Dec, 2012 [facility] [place] [facility] [address] [id number] [place] [address] Dec, [facility] [place] [facility] [address] [id number] [place] [address] Dec, [facility] [place] [facility] [address] [id number] [place] [address] Dec, [facility] [place] [facility] [address] [id number] [place] [address] 07 Dec, 2012 [facility] [address] [id number] [place] [address] 06 Dec, 2012 [facility] [place] [facility] [address] [id number] [place] [address] 05 Dec, 2012 [facility] [place] [facility] [address] [id number] [place] [address] Nov, [facility] [place] [facility] [address] [id number] [place] [address] 24 Nov, 2012 [facility] [place] [facility] [address] [id number] [place] [address] 18 Nov, 2012 [facility] [address] [id number] [place] [address] 15 Nov, 2012 [facility] [address] [id number] [place] [address] Nov, [facility] [address] [id number] [place] [address] Nov, [facility] [address] [id number] [place] [address] Nov, [facility] [address] [id number] [place] [address] Oct, [facility] [address] [id number] [place] [address] Oct, [facility] [place] [facility] [address] [id number] [place] [address] Oct, [facility] [place] [facility] [address] [id number] [place] [address] Oct, [facility] [place] [facility] [address] [id number] [place] [address] 17 Oct, 2012 [facility] [place] [facility] [address] [id number] [place] [address] Oct, [facility] [place] [facility] [address] [id number] [place] [address] Oct, [facility] [place] [facility] [address] [id number] [place] [address] Oct, [facility] [place] [facility] [address] [facility] [id number] [place] [address] Oct, [facility] [place] [facility] [address] [id number] [place] [address] Oct, [facility] [place] [facility] [address] [id number] [place] [address] Oct, [facility] [place] [facility] [address] [id number] [place] [address] Oct, [facility] [place] [facility] [address] [facility] [id number] [place] [address] Sep, [facility] [place] [facility] [address] [id number], [place] [address] Sep, [facility] [place] [facility] [address] [id number], [place] [address] Sep, [facility] [place] [facility] [address] [facility] [id number], [place] [address] Sep, [facility] [place] [facility] [address] [id number], [place] [address] Sep, [facility] [place] [facility] [address] [id number], [place] [address] Sep, [facility] [place] [facility] [address] [id number], [place] [address] Sep, [facility] [place] [facility] [address] [facility] [id number], [place] [address] Sep, [facility] [place] [facility] [address] [facility] [id number], [place] [address] Sep, [facility] [place] [facility] [address] [id number] [place] [address] Sep, [facility] [place] [facility] [address] [id number] [place] [address] Sep, [facility] [place] [facility] [address] [id number] [place] [address] Aug, [facility] [place] [facility] [address] [id number] [place] [address] Aug, [facility] [place] [facility] [address] [id number] [place] [address] Aug, [facility] [place] [facility] [address] [id number] [place] [address] Aug, [facility] [place] [facility] [address] [id number] [place] [address] Aug, [facility] [place] [facility] [address] [id number] [place] [address] Aug, [facility] [place] [facility] [address] [id number] [place] [address] Aug, [facility] [place] [facility] [address] [id number] [place] [address] Aug, [facility] [place] [facility] [address] [facility] [id number] [place] [address] Aug, [facility] [place] [facility] [address] [id number] [place] [address] Aug, [facility] [place] [facility] [address] [id number] [place] [address] 22 Jul, 2012 [facility] [place] [facility] [address] [id number] [place] [address] 20 Jul, 2012 [facility] [place] [facility] [address] [id number] [place] [address] 10 Jul, 2012 [facility] [place] [facility] [address] [id number] [place] [address] Jul, [facility] [place] [facility] [address] [id number] [place] [address] Jun, [facility] [place] [facility] [address] [id number] [place] [address] Jun, [facility] [place] [facility] [address] [id number] [place] [address] Jun, [facility] [place] [facility] [address] [id number] [place] [address] Jun, [facility] [place] [facility] [address] [id number] [place] [address] Jun, [facility] [place] [facility] [address] [id number] [place] [address] Jun, [facility] [place] [facility] [address] [id number] [place] [address] Jun, [facility] [place] [facility] [address] [id number] [place] [address] May, [facility] [place] [facility] [address] [id number] [place] [address] May, [facility] [place] [facility] [address] [id number] [place] [address] May, [facility] [place] [facility] [address] [id number] [place] [address] May, [facility] [place] [facility] [address] [id number] [place] [address] May, [facility] [place] [facility] [address] [id number] [place] [address] Apr, [facility] [place] [facility] [address] [id number] [place] [address] Apr, [facility] [place] [facility] [address] [id number] [place] [address] Apr, [facility] [place] [facility] [address] [id number] [place] [address] Apr, [facility] [address] [id number] [place] [address] Apr, [facility] [place] [facility] [address] [id number] [place] [address] March, [facility] [place] [facility] [address] [id number] [place] [address] March, [facility] [place] [facility] [address] [id number] [place] [address] March, [facility] [place] [facility] [address] [id number] [place] [address] March, [facility] [place] [facility] [address] [id number] [place] [address] March, [facility] [address] [id number] [place] [address] March, [facility] [place] [facility] [address] [id number] [place] [address] March, [facility] [place] [facility] [address] [id number] [place] [address] March, [facility] [place] [facility] [address] [id number] [place] [address] March, [facility] [place] [facility] [address] [id number] [place] [address] March, [facility] [place] [facility] [address] [id number] [place] [address] Feb, [facility] [place] [facility] [address] [id number] [place] [address] Feb, [facility] [place] [facility] [address] [id number] [place] [address] Feb, [facility] [place] [facility] [address] [id number] [place] [address] Feb, [facility] [place] [facility] [address] [id number] [place] [address] 17 Feb, 2012 [facility] [address] [id number] [place] [address] 17 Feb, 2012 [facility] [place] [facility] [address] [id number] [place] [address] Feb, [facility] [address] [id number] [place] [address] Feb, [facility] [address] [id number] [place] [address] Feb, [facility] [address] [id number] [place] [address] 08 Jan, 2012 [facility] [address] [id number] [place] [address] Jan, [facility] [address] [id number] [place] [address] Jan, [facility] [address] [id number] [place] [address] Jan, [facility] [address] [id number] [place] [address] Dec, [facility] [address] [id number] [place] [address] Dec, [facility] [address] [id number] [place] [address] Nov, [facility] [address] [id number] [place] [address] Nov, [facility] [place] [facility] [address] [id number] [place] [address] Nov, [facility] [place] [facility] [address] [id number] [place] [address] Nov, [facility] [place] [facility] [address] [id number] [place] [address] Nov, [facility] [address] [facility] [id number], [place] [address] Oct, [facility] [address] [facility] [id number], [place] [address] Oct, [facility] [id number], [place] [address] Oct, [facility] [id number], [place] [address] Oct, [facility] [address] [facility] [id number], [place] [address] Oct, [facility] [id number] [place] [address] Oct, [facility] [id number], [place] [address] Oct, [facility] [id number], [place] [address] Oct, [facility] [address] [id number], [place] [address] Sep, IMMUNIZATIONS No Known Immunizations SOCIAL HISTORY Never Assessed REASON FOR VISIT [facility] PLAN OF CARE VITAL SIGNS MEDICATIONS Unknown Medications RESULTS No Results PROCEDURES No Known procedures INSTRUCTIONS MEDICATIONS ADMINISTERED No Known Medications MEDICAL (GENERAL) HISTORY Type Description Date 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
[2019-04-16 15:42] LABS: BASOPHILS % (AUTO) 0 % (0-10); EOSINOPHILS # (AUTO) 0.1 10^3/uL (0.0-0.3); EOSINOPHILS % (AUTO) 0 % (0-10); HEMATOCRIT 23 % (35-52); HEMOGLOBIN 7.5 G/DL (11.5-16.0); LYMPHOCYTES # (AUTO) 3.8 X 10^3 (1.0-4.0); LYMPHOCYTES % (AUTO) 17 % (12-44); MEAN CORPUSCULAR HEMOGLOBIN 30 PG (25-34); MEAN CORPUSCULAR HGB CONC 33 G/DL (32-36); MEAN CORPUSCULAR VOLUME 93 FL (80-99); MEAN PLATELET VOLUME 10.4 FL (7.4-10.4); MONOCYTES # (AUTO) 1.7 X 10^3 (0.0-1.0); MONOCYTES % (AUTO) 7 % (0-12); NEUTROPHILS # (AUTO) 16.8 X 10^3 (1.8-7.8); NEUTROPHILS % (AUTO) 75 % (42-75); PLATELET COUNT 283 10^3/uL (130-400); RED CELL DISTRIBUTION WIDTH 14.9 % (10.0-14.5); WHITE BLOOD COUNT 22.4 10^3/uL (4.3-11.0)
--- OUTSIDE RECORDS SUMMARY | 2019-04-16 15:42 | XMS REPORT ---
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 Name Role Phone Migration, Doctor Unavailable Unavailable PROBLEMS Type Condition ICD9-CM Code [id number] Code Onset Dates Condition Status SNOMED Code Problem Coronary artery disease I25.10 Active 23436167 Problem Hypertension I10 Active 48671328 Problem Other chronic pain G89.29 Active 52944520 Problem Hyperlipidemia E78.5 Active 17374489 Problem Type 2 diabetes mellitus without complication, without long-term current use of insulin E11.9 Active 779640767 Problem Low back pain M54.5 Active 026564572 Problem Pharyngeal dysphagia R13.13 Active 43882996307474 Problem Anxiety F41.9 Active 52377913 Problem Peripheral vascular disease I73.9 Active 885148168 Problem Suprapubic catheter Z93.59 Active 619274517 Problem Reactive depression F32.9 Active 63206319 Problem Neurogenic bladder N31.9 Active 086974778 Problem Ventral hernia without obstruction or gangrene K43.9 Active 168242565 Problem Insomnia G47.00 Active 188633038 Problem Paroxysmal atrial fibrillation I48.0 Active 480952385 Problem 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 Active 07592643 Problem Encounter for suprapubic catheter care Z43.5 Active 997700098 ALLERGIES No Information ENCOUNTERS Encounter Location Date Diagnosis [facility] [address] [id number] [address] Dec, Anxiety F41.9 [facility] [address] [id number], [place] [address] Dec, Other chronic pain G89.29 and Anxiety F41.9 [facility] [id number], [place] [address] Dec, Via [facility] [address] [facility] [address] [place] [id number] Dec, Neurogenic bladder N31.9 and Suprapubic catheter Z93.59 [facility] [address] [id number], [place] [address] Nov, Other chronic pain G89.29 and Anxiety F41.9 [facility] [address] [id number], [place] [address] Nov, Via [facility] [address] [place] [id number] Nov, Suprapubic catheter Z93.59 [facility] [address] [id number] [place] [address] Oct, Other chronic pain G89.29 and Anxiety F41.9 [facility] [address] [id number] [place] [address] Oct, [facility] [address] [facility] [id number] [place] [address] Oct, Suprapubic catheter Z93.59 [facility] [address] [id number] [place] [address] Oct, Via [facility] [address] [place] [id number] Oct, [facility] [address] [facility] [id number] [place] [address] Oct, Anxiety F41.9 [facility] [address] [id number] [place] [address] Oct, Anxiety F41.9 Via [facility] [address] [place] [id number] Oct, Other chronic pain G89.29 [facility] [address] [id number] [place] [address] Sep, Other chronic pain G89.29 Via [facility] [address] [place] [id number] Sep, Suprapubic catheter Z93.59 and Cervicalgia M54.2 [facility] [id number] [place] [address] Sep, [facility] [address] [facility] [id number], [place] [address] Sep, [facility] [address] [facility] [id number], [place] [address] Sep, Via [facility] [address] [place] [id number] Aug, Cystitis N30.90 [facility] [address] [facility] [id number], [place] [address] Aug, [facility] [address] [facility] [id number], [place] [address] Aug, Other chronic pain G89.29 [facility] [address] [facility] [id number], [place] [address] Aug, Via [facility] [address] [place] [id number] Aug, Encounter for suprapubic catheter care Z43.5 [facility] [address] [facility] [id number], [place] [address] Jul, Via [facility] [address] [place] [id number] Jul, [facility] [address] [facility] [id number], [place] [address] Jul, Other chronic pain G89.29 [facility] [address] [facility] [id number], [place] [address] Jul, [facility] [address] [facility] [id number], [place] [address] Jul, Via [facility] [address] [place] [id number] Jun, 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 [facility] [address] [id number], [place] [address] Jun, Other chronic pain G89.29 [facility] [address] [facility] [id number], [place] [address] Jun, Via [facility] [address] [place] [id number] May, Anxiety F41.9 ; Type 2 diabetes mellitus without complication, without long-term current use of insulin E11.9 ; Hypertension I10 ; Low back pain M54.5 ; Paroxysmal atrial fibrillation I48.0 and 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 [place] [address] [facility] [id number] [place] [address] May, Other chronic pain G89.29 Via [facility] [address] [place] [id number] May, Low back pain M54.5 [address] [address] [id number] [place] [address] May, [address] [place] [id number] [place] [address] Apr, Other chronic pain G89.29 [place] [address] [id number] [place] [address] Apr, [place] [address] [facility] [id number] [place] [address] Apr, Via [facility] [address] [place] [id number] Apr, Closed compression fracture of L3 lumbar vertebra with routine healing, subsequent encounter S32.030D [facility] [address] [place] [id number] Apr, Low back pain M54.5 Via [facility] [address] [place] [id number] Apr, Coccydynia M53.3 [place] [address] [facility] [id number] [place] [address] March, [address] [address] [facility] [id number] [place] [address] March, Other chronic pain G89.29 [place] [id number] [place] [address] March, [facility] [address]00565[address], [place] [address] March, [facility] [id number] [place] [address] Feb, [facility] [id number] [place] [address] Feb, Other chronic pain G89.29 Via [facility] [address] [place] [id number] Feb, Other chronic pain G89.29 and Anxiety F41.9 [facility] [id number] [place] [address] Feb, [facility] [id number] [place] [address] Jan, [facility] [id number] [place] [address] Jan, [facility] [id number] [place] [address] Jan, [facility] [id number] [place] [address] Jan, [facility] [id number] [place] [address] Dec, Via [facility] [address] [place] [id number] Dec, Peripheral vascular disease I73.9 ; 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 [id number] [place] [id number] Nov, Anxiety F41.9 Via [facility] [employer] [facility] [facility] [address] [place] [address] Nov, Status post surgery Z98.890 ; Confused R41.0 ; Anxiety F41.9 and Other chronic pain G89.29 [facility] [address] [id number] [address] Nov, Other chronic pain G89.29 [facility] [id number] [place] [address] Oct, [facility] [id number] [place] [id number] Oct, Other chronic pain G89.29 [facility] [id number] [place] [address] Oct, Anxiety F41.9 [facility] [id number] [place] [id number] Sep, Other chronic pain G89.29 [facility] [id number] [place] [id number] Sep, Via [employer] [facility] [employer] [address] [place] [id number] Aug, Dysuria R30.0 and Anxiety F41.9 [facility] [address] [id number], [place] [address] Aug, [facility] [id number] [place] [id number] Aug, Other chronic pain G89.29 [facility] [address]65[address], [place] [address] Jul, Other chronic pain G89.29 [facility] [id number] [place] [id number] Jun, [facility] [id number] [id number] Jun, Other chronic pain G89.29 [facility] [id number] [place] [address] Jun, [facility] [id number] [place] [address] May, Other chronic pain G89.29 [facility] [id number] [place] [address] Apr, Other chronic pain G89.29 Via [employer] [address] [place] [id number] Apr, Reactive depression F32.9 and Pharyngeal dysphagia R13.13 [facility] [id number] [place] [address] Apr, Urinary tract infection without hematuria, site unspecified N39.0 [facility] [id number] [place] [address] March, Other chronic pain G89.29 [facility] [id number] [place] [address] Feb, Other chronic pain G89.29 [facility] [id number] [place] [address] Feb, [facility] [id number] [place] [id number] Feb, Via [facility] [facility] [address] [place] [id number] Feb, Dysuria R30.0 and Ventral hernia without obstruction or gangrene K43.9 [facility] [id number] [place] [address] Jan, Other chronic pain G89.29 [facility] [id number] [place] [id number] Dec, Other chronic pain G89.29 [facility] [address] [facility] [id number], [place] [address] Nov, Other chronic pain G89.29 Via [facility] [address] [place] [id number] Nov, Lymphadenitis I88.9 [facility] [address] [facility] [id number], [place] [address] Nov, Other chronic pain G89.29 [facility] [id number] [place] [address] Nov, [facility] [id number] [place] [id number] Nov, Other chronic pain G89.29 Via [facility] [address] [place] [id number] Oct, Low back pain M54.5 ; Hypertension I10 and Type 2 diabetes mellitus without complication, without long-term current use of insulin E11.9 [facility] [address] [place] [address] Oct, [facility] [id number] [place] [address] Oct, [facility] [id number] [place] [address] Oct, [facility] [address]00565[address], [place] [address] Oct, [facility] [address]00565100[place], [place] [address] Sep, [facility] [address] [id number], [place] [address] Sep, [facility] [id number] [place] [address] Aug, Other chronic pain G89.29 [facility] [address]00565100[place], [place] [address] Jul, [facility] [address]00565100[place], [place] [address] Jul, [facility] [address]00565100[place], [place] [address] Jul, [facility] [address]65[address], [place] [address] Jun, [facility] [address]00565100[place], [place] [address] Jun, Via [facility] [address] [facility] [address] [place] [id number] Jun, Low back pain M54.5 ; Other chronic pain G89.29 and Coronary artery disease I25.10 [facility] [address]00565100[place], [place] [address] Jun, [facility] [address]00565100[place], [place] [address] May, [facility] [address]00565100[place], [place] [address] May, [facility] [address], [place] [address] May, Other chronic pain G89.29 [facility] [address]65100[place], [place] [address] May, [facility] [address]00565100[place], [place] [address] Apr, [facility] [address]00565100[place], [place] [address] 17 Apr, 2016 Acute cystitis without hematuria N30.00 [facility] [address]00565100[place], [place] [address] 16 Apr, 2016 Acute cystitis without hematuria N30.00 ; Coronary artery disease I25.10 ; Low back pain M54.5 and Other chronic pain G89.29 [facility] [address]100[place], [place] [address] Apr, Other chronic pain G89.29 [facility] [address]100[place], [place] [address] March, Other chronic pain G89.29 [facility] [address], [place] [address] 18 Feb, 2016 [facility] [id number] [place] [address] 15 Feb, 2016 Arthritis M19.90 [facility] [id number] [place] [address] Feb, [facility] [id number] [place] [address] 30 Jan, 2016 [facility] [id number] [place] [address] Jan, [facility] [id number] [place] [address] Jan, Other chronic pain G89.29 [facility] [id number] [place] [address] Jan, Hypertension I10 ; Coronary artery disease I25.10 and Insomnia G47.00 [facility] [address], [place] [address] Jan, [facility] [address] [place] [address] Dec, Right hip pain M25.551 [facility] [address]00565100[place], [place] [address] Dec, [facility] [id number] [place] [address] Dec, [facility] [address]65100[place], [place] [address] Dec, [facility] [id number] [place] [address] Dec, Other chronic pain G89.29 [facility] [address] [place] [address] Dec, [facility] [id number] [place] [address] Nov, [facility] [id number] [place] [address] Nov, Other chronic pain G89.29 [facility] [id number] [place] [address] Nov, Right hip pain M25.551 and Coronary artery disease I25.10 [facility] [id number] [place] [address] Nov, Other chronic pain G89.29 [facility] [id number] [place] [address] Oct, [facility] [id number] [place] [address] Oct, [facility] [id number] [place] [address] Sep, [facility] [id number] [place] [address] Sep, [facility] [id number] [place] [address] Aug, [facility] [id number] [place] [address] Aug, Hypertension I10 ; Coronary artery disease I25.10 and Arthritis M19.90 [facility] [id number] [place] [address] Jun, [facility] [id number] [place] [address] Jun, Essential hypertension, benign 401.1 ; Other chronic pain 338.29 and Chronic airway obstruction, not elsewhere classified 496 [facility] [address] [id number] [place] [address] Jun, [facility] [address] [id number] [place] [address] Jun, [facility] [address] [id number] [place] [address] Jun, [facility] [address] [id number] [place] [address] May, [facility] [address] [id number] [place] [address] May, [facility] [address] [id number] [place] [address] Apr, [facility] [address] [id number] [place] [address] Apr, [facility] [address] [id number] [place] [address] Apr, [facility] [address] [id number] [place] [address] March, [facility] [address] [id number] [place] [address] March, [facility] [address] [id number] [place] [address] March, [facility] [address] [id number] [place] [address] March, [facility] [address] [id number] [place] [address] March, Sialadenitis 527.2 [facility] [address] [id number] [place] [address] Feb, [facility] [place] [facility] [address] [id number] [place] [address] Feb, [facility] [address] [id number] [place] [address] 29 Feb, 2015 [facility] [place] [facility] [address] [id number] [place] [address] 14 Feb, 2015 [facility] [place] [facility] [address] [id number] [place] [address] 13 Feb, 2015 [facility] [place] [facility] [address] [id number] [place] [address] Jan, [facility] [place] [facility] [address] [id number] [place] [address] Jan, [facility] [place] [facility] [address] [id number] [place] [address] Jan, [facility] [place] [facility] [address] [facility] [id number] [place] [address] Jan, [facility] [place] [facility] [address] [facility] [id number] [place] [address] Jan, [facility] [place] [facility] [address] [facility] [id number] [place] [address] Jan, [facility] [place] [facility] [address] [id number] [place] [address] Dec, 2014 [facility] [place] [facility] [address] [facility] [id number] [place] [address] Dec, 2014 [facility] [place] [facility] [address] [facility] [id number] [place] [address] Dec, 2014 [facility] [place] [facility] [address] [id number] [place] [address] Dec, 2014 [facility] [place] [facility] [address] [id number] [place] [address] Dec, [facility] [place] [facility] [address] [facility] [id number] [place] [address] Dec, 2014 [facility] [place] [facility] [address] [facility] [id number] [place] [address] Nov, [facility] [place] [facility] [address] [id number] [place] [address] Nov, [facility] [place] [facility] [address] [id number] [place] [address] Nov, [facility] [place] [facility] [address] [id number] [place] [address] Nov, [facility] [place] [facility] [address] [id number] [place] [address] Nov, [facility] [place] [facility] [address] [id number] [place] [address] Nov, [facility] [place] [facility] [address] [id number] [place] [address] Nov, [facility] [place] [facility] [address] [id number] [place] [address] Nov, [facility] [place] [facility] [address] [id number] [place] [address] Nov, [facility] [place] [facility] [address] [id number] [place] [address] Nov, [facility] [place] [facility] [address] [id number] [place] [address] Nov, [facility] [place] [facility] [address] [id number], [place] [address] Nov, [facility] [place] [facility] [address] [id number], [place] [address] Nov, [facility] [place] [facility] [address] [id number] [place] [address] Nov, [facility] [place] [facility] [address] [id number] [place] [address] Oct, [facility] [place] [facility] [address] [id number] [place] [address] Oct, [facility] [place] [facility] [address] [id number] [place] [address] 19 Oct, 2014 [facility] [place] [facility] [address] [id number] [place] [address] 18 Oct, 2014 [facility] [place] [facility] [address] [id number] [place] [address] 18 Oct, 2014 [facility] [place] [facility] [address] [id number] [place] [address] 17 Oct, 2014 [facility] [place] [facility] [address] [id number] [place] [address] 17 Oct, 2014 [facility] [place] [facility] [address] [id number] [place] [address] Oct, [facility] [place] [facility] [address] [id number] [place] [address] Oct, [facility] [place] [facility] [address] [id number] [place] [address] Sep, [facility] [place] [facility] [address] [id number] [place] [address] Sep, [facility] [place] [facility] [address] [id number] [place] [address] Sep, [facility] [place] [facility] [address] [id number] [place] [address] Sep, [facility] [place] [facility] [address] [id number] [place] [address] Sep, [facility] [place] [facility] [address] [id number] [place] [address] Sep, [facility] [place] [facility] [address] [id number] [place] [address] Sep, [facility] [place] [facility] [address] [id number] [place] [address] Sep, [facility] [place] [facility] [address] [id number] [place] [address] Sep, [facility] [place] [facility] [address] [id number] [place] [address] Sep, [facility] [place] [facility] [address] [id number] [place] [address] Sep, [facility] [place] [facility] [address] [id number] [place] [address] Sep, [facility] [place] [facility] [address] [id number] [place] [address] Aug, [facility] [place] [facility] [address] [id number] [place] [address] Aug, [facility] [place] [facility] [address] [id number] [place] [address] Aug, [facility] [place] [facility] [address] [id number] [place] [address] Aug, [facility] [place] [facility] [address] [id number] [place] [address] Aug, [facility] [place] [facility] [address] [id number] [place] [address] Aug, [facility] [place] [facility] [address] [id number] [place] [address] Aug, [facility] [place] [facility] [address] [id number] [place] [address] Aug, [facility] [place] [facility] [address] [id number] [place] [address] 30 Jul, 2013 [facility] [place] [facility] [address] [id number] [place] [address] 30 Jul, 2014 [facility] [place] [facility] [address] [id number] [place] [address] 30 Jul, 2013 [facility] [place] [facility] [address] [id number] [place] [address] 30 Jul, 2013 [facility] [place] [facility] [address] [id number] [place] [address] Jul, [facility] [place] [facility] [address] [id number] [place] [address] Jul, [facility] [place] [facility] [address] [id number] [place] [address] Jul, [facility] [place] [facility] [address] [id number] [place] [address] Jul, [facility] [place] [facility] [address] [id number] [place] [address] Jul, [facility] [place] [facility] [address] [id number] [place] [address] Jul, [facility] [place] [facility] [address] [id number] [place] [address] Jun, [facility] [place] [facility] [address] [id number] [place] [address] Jun, [facility] [place] [facility] [address] [id number] [place] [address] Jun, [facility] [place] [facility] [address] [id number] [place] [address] Jun, [facility] [place] [facility] [address] [id number] [place] [address] Jun, [facility] [place] [facility] [address] [id number] [place] [address] Jun, [facility] [place] [facility] [address] [id number] [place] [address] Jun, [facility] [place] [facility] [address] [id number] [place] [address] Jun, [facility] [place] [facility] [address] [id number] [place] [address] Jun, [facility] [place] [facility] [address] [id number] [place] [address] Jun, [facility] [place] [facility] [address] [id number] [place] [address] Jun, [facility] [place] [facility] [address] [id number] [place] [address] Jun, [facility] [place] [facility] [address] [id number] [place] [address] Jun, [facility] [place] [facility] [address] [id number] [place] [address] Jun, [facility] [place] [facility] [address] [id number] [place] [address] Jun, [facility] [place] [facility] [address] [id number] [place] [address] Jun, [facility] [place] [facility] [address] [id number] [place] [address] Jun, [facility] [place] [facility] [address] [id number] [place] [address] Jun, [facility] [place] [facility] [address] [id number] [place] [address] Jun, [facility] [place] [facility] [address] [id number] [place] [address] Jun, [facility] [place] [facility] [address] [id number] [place] [address] Jun, [facility] [place] [facility] [address] [id number] [place] [address] Jun, [facility] [place] [facility] [address] [id number] [place] [address] May, [facility] [place] [facility] [address] [id number] [place] [address] May, [facility] [place] [facility] [address] [id number] [place] [address] May, [facility] [place] [facility] [address] [id number] [place] [address] May, [facility] [place] [facility] [address] [id number] [place] [address] May, [facility] [place] [facility] [address] [id number] [place] [address] May, [facility] [place] [facility] [address] [id number] [place] [address] May, [facility] [place] [facility] [address] [id number] [place] [address] May, [facility] [place] [facility] [address] [id number] [place] [address] May, [facility] [place] [facility] [address] [id number] [place] [address] May, [facility] [place] [facility] [address] [id number] [place] [address] May, [facility] [place] [facility] [address] [id number] [place] [address] May, [facility] [place] [facility] [address] [id number] [place] [address] May, [facility] [place] [facility] [address] [id number] [place] [address] Apr, [facility] [place] [facility] [address] [id number] [place] [address] Apr, [facility] [place] [facility] [address] [id number] [place] [address] Apr, [facility] [place] [facility] [address] [id number] [place] [address] Apr, [facility] [place] [facility] [address] [id number] [place] [address] Apr, [facility] [place] [facility] [address] [id number] [place] [address] Apr, [facility] [place] [facility] [address] [id number] [place] [address] Apr, [facility] [place] [facility] [address] [id number] [place] [address] Apr, [facility] [place] [facility] [address] [id number] [place] [address] Apr, [facility] [place] [facility] [address] [id number] [place] [address] March, [facility] [place] [facility] [address] [id number] [place] [address] March, [facility] [place] [facility] [address] [id number] [place] [address] March, [facility] [place] [facility] [address] [id number] [place] [address] March, [facility] [place] [facility] [address] [id number] [place] [address] March, [facility] [place] [facility] [address] [id number] [place] [address] March, [facility] [place] [facility] [address] [id number] [place] [address] March, [facility] [place] [facility] [address] [id number] [place] [address] March, [facility] [place] [facility] [address] [id number] [place] [address] March, [facility] [place] [facility] [address] [id number] [place] [address] March, [facility] [place] [facility] [address] [id number] [place] [address] March, [facility] [place] [facility] [address] [id number] [place] [address] March, [facility] [place] [facility] [address] [id number] [place] [address] March, [facility] [place] [facility] [address] [id number] [place] [address] March, [facility] [place] [facility] [address] [id number] [place] [address] March, [facility] [place] [facility] [address] [id number] [place] [address] March, [facility] [place] [facility] [address] [id number] [place] [address] March, [facility] [place] [facility] [address] [id number] [place] [address] March, [facility] [place] [facility] [address] [id number] [place] [address] March, [facility] [place] [facility] [address] [id number] [place] [address] March, [facility] [place] [facility] [address] [id number] [place] [address] Feb, [facility] [place] [facility] [address] [id number] [place] [address] Feb, [facility] [place] [facility] [address] [id number] [place] [address] Feb, [facility] [place] [facility] [address] [id number] [place] [address] Feb, [facility] [place] [facility] [address] [id number] [place] [address] Feb, [facility] [place] [facility] [address] [id number] [place] [address] Feb, [facility] [place] [facility] [address] [id number] [place] [address] Feb, [facility] [place] [facility] [address] [id number] [place] [address] Feb, [facility] [place] [facility] [address] [id number] [place] [address] Jan, [facility] [place] [facility] [address] [id number] [place] [address] Jan, [facility] [place] [facility] [address] [id number] [place] [address] Jan, [facility] [place] [facility] [address] [id number] [place] [address] Jan, [facility] [place] [facility] [address] [id number] [place] [address] Jan, [facility] [place] [facility] [address] [id number] [place] [address] Jan, [facility] [place] [facility] [address] [id number] [place] [address] Jan, [facility] [place] [facility] [address] [id number] [place] [address] Jan, [facility] [place] [facility] [address] [id number] [place] [address] Jan, [facility] [place] [facility] [address] [id number] [place] [address] Jan, [facility] [place] [facility] [address] [id number] [place] [address] 27 Dec, 2013 [facility] [place] [facility] [address] [id number] [place] [address] Dec, [facility] [place] [facility] [address] [id number] [place] [address] Dec, [facility] [place] [facility] [address] [id number] [place] [address] 2013 [facility] [place] [facility] [address] [id number] [place] [address] 2013 [facility] [place] [facility] [address] [id number] [place] [address] 13 Dec, 2013 [facility] [place] [facility] [address] [id number] [place] [address] Dec, [facility] [place] [facility] [address] [id number] [place] [address] Dec, [facility] [place] [facility] [address] [id number] [place] [address] Nov, [facility] [place] [facility] [address] [id number] [place] [address] Nov, [facility] [place] [facility] [address] [id number] [place] [address] Nov, [facility] [place] [facility] [address] [id number] [place] [address] Nov, [facility] [place] [facility] [address] [id number] [place] [address] Nov, [facility] [place] [facility] [address] [id number] [place] [address] Nov, [facility] [place] [facility] [address] [id number] [place] [address] Nov, [facility] [place] [facility] [address] [id number] [place] [address] Nov, [facility] [place] [facility] [address] [id number] [place] [address] Nov, [facility] [place] [facility] [address] [id number] [place] [address] Nov, [facility] [place] [facility] [address] [id number] [place] [address] Nov, [facility] [place] [facility] [address] [id number] [place] [address] Nov, [facility] [place] [facility] [address] [id number] [place] [address] Nov, [facility] [place] [facility] [address] [id number] [place] [address] 30 Oct, 2013 [facility] [address] [id number] [place] [address] 30 Oct, 2013 [facility] [place] [facility] [address] [id number] [place] [address] Oct, [facility] [place] [facility] [address] [id number] [place] [address] Oct, [facility] [place] [facility] [address] [id number] [place] [address] Oct, [facility] [place] [facility] [address] [id number] [place] [address] Oct, [facility] [place] [facility] [address] [id number] [place] [address] Oct, [facility] [place] [facility] [address] [id number] [place] [address] Oct, [facility] [place] [facility] [address] [id number] [place] [address] Oct, [facility] [place] [facility] [address] [id number] [place] [address] Oct, [facility] [place] [facility] [address] [id number] [place] [address] Oct, [facility] [place] [facility] [address] [id number], [place] [address] Oct, [facility] [place] [facility] [address] [id number], [place] [address] Oct, [facility] [place] [facility] [address] [id number] [place] [address] Oct, [facility] [place] [facility] [address] [id number] [place] [address] 14 Sep, 2013 [facility] [place] [facility] [address] [id number] [place] [address] 14 Sep, 2013 [facility] [place] [facility] [address] [id number] [place] [address] Sep, [facility] [place] [facility] [address] [id number] [place] [address] Sep, [facility] [place] [facility] [address] [id number] [place] [address] Sep, [facility] [place] [facility] [address] [id number] [place] [address] Sep, [facility] [place] [facility] [address] [id number] [place] [address] Sep, [facility] [place] [facility] [address] [id number] [place] [address] Sep, [facility] [place] [facility] [address] [id number] [place] [address] Sep, [facility] [place] [facility] [address] [id number] [place] [address] Sep, [facility] [place] [facility] [address] [id number] [place] [address] Aug, [facility] [place] [facility] [address] [id number] [place] [address] Aug, [facility] [place] [facility] [address] [id number] [place] [address] Aug, [facility] [place] [facility] [address] [id number] [place] [address] Aug, [facility] [place] [facility] [address] [id number], [place] [address] Aug, [facility] [place] [facility] [address] [id number] [place] [address] Aug, [facility] [place] [facility] [address] [id number] [place] [address] Aug, [facility] [place] [facility] [address] [id number], [place] [address] Aug, [facility] [place] [facility] [address] [id number] [place] [address] 22 Aug, 2012 [facility] [place] [facility] [address] [id number] [place] [address] 22 Aug, 2012 [facility] [place] [facility] [address] [id number] [place] [address] 18 Aug, 2013 [facility] [place] [facility] [address] [id number] [place] [address] 18 Aug, 2013 [facility] [place] [facility] [address] [id number] [place] [address] 18 Aug, 2013 [facility] [place] [facility] [address] [id number] [place] [address] 18 Aug, 2013 [facility] [place] [facility] [address] [id number] [place] [address] 17 Aug, 2013 [facility] [place] [facility] [address] [id number] [place] [address] 14 Aug, 2013 [facility] [place] [facility] [address] [id number] [place] [address] 14 Aug, 2013 [facility] [place] [facility] [address] [id number] [place] [address] 01 Aug, 2013 [facility] [place] [facility] [address] [id number] [place] [address] 20 Jul, 2012 [facility] [place] [facility] [address] [id number] [place] [address] 19 Jul, 2012 [facility] [place] [facility] [address] [id number] [place] [address] 18 Sep, 2012 [facility] [place] [facility] [address] [id number] [place] [address] 11 Jul, 2012 [facility] [place] [facility] [address] [id number] [place] [address] 11 Jul, 2012 [facility] [place] [facility] [address] [id number] [place] [address] Jun, [facility] [place] [facility] [address] [id number] [place] [address] Jun, [facility] [place] [facility] [address] [id number] [place] [address] Jun, [facility] [place] [facility] [address] [id number] [place] [address] Jun, [facility] [place] [facility] [address] [id number] [place] [address] Jun, [facility] [place] [facility] [address] [id number] [place] [address] Jun, [facility] [place] [facility] [address] [id number] [place] [address] Jun, [facility] [place] [facility] [address] [id number] [place] [address] Jun, [facility] [place] [facility] [address] [id number] [place] [address] Jun, [facility] [place] [facility] [address] [id number] [place] [address] Jun, [facility] [place] [facility] [address] [id number] [place] [address] May, [facility] [place] [facility] [address] [id number] [place] [address] May, [facility] [place] [facility] [address] [id number] [place] [address] May, [facility] [place] [facility] [address] [id number] [place] [address] May, [facility] [place] [facility] [address] [id number] [place] [address] May, [facility] [place] [facility] [address] [id number] [place] [address] May, [facility] [place] [facility] [address] [id number] [place] [address] May, [facility] [address] [id number] [place] [address] May, [facility] [address] [id number] [place] [address] May, [facility] [address] [id number] [place] [address] Apr, [facility] [address] [id number] [place] [address] Apr, [facility] [address] [id number] [place] [address] Apr, [facility] [address] [id number] [place] [address] Apr, [facility] [address] [id number] [place] [address] Apr, [facility] [address] [id number] [place] [address] Apr, [facility] [address] [id number] [place] [address] Apr, [facility] [address] [id number] [place] [address] March, [facility] [address] [id number] [place] [address] Feb, [facility] [address] [id number] [place] [address] Feb, [facility] [place] [facility] [address] [id number] [place] [address] Feb, [facility] [address] [id number] [place] [address] Jan, [facility] [address] [id number] [place] [address] Jan, [facility] [address] [id number] [place] [address] 19 Jan, 2013 [facility] [place] [facility] [address] [id number] [place] [address] 14 Jan, 2013 [facility] [place] [facility] [address] [id number] [place] [address] 12 Jan, 2013 [facility] [place] [facility] [address] [id number] [place] [address] 08 Jan, 2013 [facility] [place] [facility] [address] [id number] [place] [address] 07 Jan, 2013 [facility] [place] [facility] [address] [id number] [place] [address] 04 Jan, 2013 [facility] [place] [facility] [address] [id number] [place] [address] 28 Dec, 2012 [facility] [place] [facility] [address] [id number] [place] [address] 25 Dec, 2012 [facility] [place] [facility] [address] [id number] [place] [address] 13 Dec, 2012 [facility] [place] [facility] [address] [facility] [id number] [place] [address] 11 Dec, 2012 [facility] [place] [facility] [address] [id number] [place] [address] 07 Dec, 2012 [facility] [place] [facility] [address] [id number] [place] [address] 06 Dec, 2012 [facility] [place] [facility] [address] [id number] [place] [address] 05 Dec, 2012 [facility] [place] [facility] [address] [id number] [place] [address] Nov, [facility] [place] [facility] [address] [id number] [place] [address] 24 Nov, 2012 [facility] [place] [facility] [address] [id number] [place] [address] 18 Nov, 2012 [facility] [address] [id number] [place] [address] 15 Nov, 2012 [facility] [address] [id number] [place] [address] 10 Nov, 2012 [facility] [address] [id number] [place] [address] 10 Nov, 2012 [facility] [address] [id number] [place] [address] Nov, [facility] [address] [id number] [place] [address] Oct, [facility] [address] [id number] [place] [address] Oct, [facility] [address] [id number] [place] [address] Oct, [facility] [address] [id number] [place] [address] 28 Oct, 2012 [facility] [address] [id number] [place] [address] 17 Oct, 2012 [facility] [address] [id number] [place] [address] 17 Oct, 2012 [facility] [address] [id number] [place] [address] 07 Oct, 2012 [facility] [address] [id number] [place] [address] 07 Oct, 2012 [facility] [address] [id number] [place] [address] 05 Oct, 2012 [facility] [address] [id number] [place] [address] 05 Oct, 2012 [facility] [address] [id number] [place] [address] Oct, [facility] [place] [facility] [address] [id number] [place] [address] Oct, [facility] [place] [facility] [address] [id number] [place] [address] Sep, [facility] [place] [facility] [address] [id number] [place] [address] Sep, [facility] [place] [facility] [address] [id number] [place] [address] Sep, [facility] [place] [facility] [address] [id number] [place] [address] Sep, [facility] [place] [facility] [address] [id number] [place] [address] Sep, [facility] [place] [facility] [address] [facility] [id number] [place] [address] Sep, [facility] [place] [facility] [address] [id number], [place] [address] Sep, [facility] [place] [facility] [address] [id number] [place] [address] Sep, [facility] [place] [facility] [address] [id number], [place] [address] Sep, [facility] [place] [facility] [address] [facility] [id number], [place] [address] Sep, [facility] [place] [facility] [address] [id number], [place] [address] Sep, [facility] [place] [facility] [address] [id number], [place] [address] Aug, [facility] [place] [facility] [address] [id number], [place] [address] Aug, [facility] [place] [facility] [address] [facility] [id number], [place] [address] Aug, [facility] [place] [facility] [address] [id number], [place] [address] Aug, [facility] [place] [facility] [address] [id number] [place] [address] Aug, [facility] [place] [facility] [address] [id number] [place] [address] Aug, [facility] [place] [facility] [address] [id number] [place] [address] Aug, [facility] [place] [facility] [address] [id number] [place] [address] Aug, [facility] [place] [facility] [address] [id number] [place] [address] Aug, [facility] [place] [facility] [address] [id number] [place] [address] Aug, [facility] [place] [facility] [address] [id number] [place] [address] Jul, [facility] [place] [facility] [address] [id number] [place] [address] Jul, [facility] [place] [facility] [address] [id number] [place] [address] Jul, [facility] [place] [facility] [address] [id number] [place] [address] Jul, [facility] [place] [facility] [address] [id number] [place] [address] 30 Jun, 2012 [facility] [place] [facility] [address] [id number] [place] [address] Jun, [facility] [place] [facility] [address] [id number] [place] [address] Jun, [facility] [place] [facility] [address] [id number] [place] [address] Jun, [facility] [place] [facility] [address] [id number] [place] [address] Jun, [facility] [place] [facility] [address] [id number] [place] [address] Jun, [facility] [place] [facility] [address] [id number] [place] [address] Jun, [facility] [place] [facility] [address] [id number] [place] [address] May, [facility] [place] [facility] [address] [id number] [place] [address] May, [facility] [place] [facility] [address] [id number] [place] [address] May, [facility] [place] [facility] [address] [id number] [place] [address] May, [facility] [place] [facility] [address] [id number] [place] [address] May, [facility] [place] [facility] [address] [id number] [place] [address] Apr, [facility] [place] [facility] [address] [id number] [place] [address] Apr, [facility] [place] [facility] [address] [id number] [place] [address] Apr, [facility] [place] [facility] [address] [id number] [place] [address] Apr, [facility] [place] [facility] [address] [id number] [place] [address] Apr, [facility] [place] [facility] [address] [id number] [place] [address] March, [facility] [place] [facility] [address] [id number] [place] [address] March, [facility] [place] [facility] [address] [id number] [place] [address] March, [facility] [place] [facility] [address] [id number] [place] [address] March, [facility] [address] [id number] [place] [address] March, [facility] [place] [facility] [address] [id number] [place] [address] March, [facility] [address] [id number] [place] [address] March, [facility] [place] [facility] [address] [id number] [place] [address] March, [facility] [address] [id number] [place] [address] March, [facility] [place] [facility] [address] [id number] [place] [address] March, [facility] [address] [id number] [place] [address] Feb, [facility] [place] [facility] [address] [id number] [place] [address] Feb, [facility] [place] [facility] [address] [id number] [place] [address] Feb, [facility] [place] [facility] [address] [id number] [place] [address] Feb, [facility] [place] [facility] [address] [id number] [place] [address] Feb, [facility] [place] [facility] [address] [id number] [place] [address] Feb, [facility] [place] [facility] [address] [id number] [place] [address] Feb, [facility] [place] [facility] [address] [id number] [place] [address] Feb, [facility] [place] [facility] [address] [id number] [place] [address] Feb, [facility] [place] [facility] [address] [id number] [place] [address] 08 Jan, 2012 [facility] [address] [id number] [place] [address] 07 Jan, 2012 [facility] [place] [facility] [address] [id number] [place] [address] 05 Jan, 2012 [facility] [place] [facility] [address] [id number] [place] [address] Jan, [facility] [place] [facility] [address] [id number] [place] [address] 29 Dec, 2011 [facility] [place] [facility] [address] [id number] [place] [address] Dec, [facility] [place] [facility] [address] [id number] [place] [address] Nov, [facility] [place] [facility] [address] [id number] [place] [address] Nov, [facility] [place] [facility] [address] [id number] [place] [address] Nov, [facility] [place] [facility] [address] [id number] [place] [address] 16 Nov, 2011 [facility] [place] [facility] [address] [id number] [place] [address] Nov, [facility] [place] [facility] [address] [id number] [place] [address] 30 Oct, 2011 [facility] [place] [facility] [address] [id number] [place] [address] Oct, [facility] [place] [facility] [address] [id number] [place] [address] Oct, [facility] [place] [facility] [address] [id number] [place] [address] Oct, [facility] [place] [facility] [address] [id number] [place] [address] Oct, [facility] [address] [facility] [id number], [place] [address] Oct, [facility] [address] [facility] [id number], [place] [address] Oct, [facility] [address] [facility] [id number], [place] [address] Oct, [facility] [address] [facility] [id number], [place] [address] Sep, IMMUNIZATIONS No Known Immunizations SOCIAL HISTORY Never Assessed REASON FOR VISIT EMR-[facility] PLAN OF CARE VITAL SIGNS MEDICATIONS Unknown Medications RESULTS No Results PROCEDURES No Known procedures INSTRUCTIONS MEDICATIONS ADMINISTERED No Known Medications MEDICAL (GENERAL) HISTORY Type Description Date 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
--- OUTSIDE RECORDS SUMMARY | 2019-04-16 15:43 | XMS REPORT ---
Author Author SHAHNAZ MARQUEZ [facility] Address [address] [place] [address] Care Team Providers Care Blade Balancer Name Role Phone SHAHNAZ MARQUEZ Unavailable PROBLEMS Type Condition ICD9-CM Code TCY41-SB Code Onset Dates Condition Status SNOMED Code Problem Reactive depression F32.9 Active 49169773 Problem Anxiety F41.9 Active 97683861 Problem Pharyngeal dysphagia R13.13 Active 31737653496209 Problem Suprapubic catheter Z93.59 Active 763997202 Problem Encounter for suprapubic catheter care Z43.5 Active 668398253 Problem Insomnia G47.00 Active 145667673 Problem Peripheral vascular disease I73.9 Active 863576335 Problem 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 Active 01338571 Problem Paroxysmal atrial fibrillation I48.0 Active 765525434 Problem Hypertension I10 Active 93517496 Problem Other chronic pain G89.29 Active 65887056 Problem Low back pain M54.5 Active 485902179 Problem Coronary artery disease I25.10 Active 34281504 Problem Type 2 diabetes mellitus without complication, without long-term current use of insulin E11.9 Active 357659894 Problem Hyperlipidemia E78.5 Active 16601744 Problem Ventral hernia without obstruction or gangrene K43.9 Active 438428701 ALLERGIES No Information ENCOUNTERS Encounter Location Date Diagnosis [facility] [address] [facility] [id number], [place] [address] Oct, [facility] [address] [id number] [address] Oct, Suprapubic catheter Z93.59 [facility] [address] [id number], [place] [address] Oct, [facility] [address] [place] [id number] Oct, [facility] [address] [id number], [place] [address] Oct, Anxiety F41.9 [facility] [address] [facility] [id number] [place] [address] Oct, Anxiety F41.9 [facility] [employer] [address] [place] [id number] Oct, Other chronic pain G89.29 [facility] [id number] [place] [address] Sep, Other chronic pain G89.29 [facility] [employer] [address] [place] [id number] Sep, Suprapubic catheter Z93.59 and Cervicalgia M54.2 [facility] [address] [facility] [id number], [place] [address] Sep, [facility] [address] [facility] [id number] [place] [address] Sep, [facility] [address] [facility] [id number], [place] [address] Sep, Via [employer] [address] [place] [id number] Aug, Cystitis N30.90 [facility] [address] [facility] [id number], [place] [address] Aug, [facility] [address] [facility] [id number] [place] [address] Aug, Other chronic pain G89.29 [facility] [address] [id number], [place] [address] Aug, Via [employer] [address] [place] [id number] Aug, Encounter for suprapubic catheter care Z43.5 [facility] [address] [id number], [place] [address] Jul, [facility] [employer] [address] [place] [id number] Jul, [facility] [address] [facility] [id number], [place] [address] Jul, Other chronic pain G89.29 [facility] [address] [facility] [id number], [place] [address] Jul, [facility] [address] [facility] [id number], [place] [address] Jul, Via [employer] [address] [place] [id number] Jun, 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 [facility] [address] [facility] [id number], [place] [address] Jun, Other chronic pain G89.29 [facility] [address]00565[address], [place] [address] Jun, Via [employer] [address] [place] [id number] May, Anxiety F41.9 ; Type 2 diabetes mellitus without complication, without long-term current use of insulin E11.9 ; Hypertension I10 ; Low back pain M54.5 ; Paroxysmal atrial fibrillation I48.0 and 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 [facility] [address]00565100[place], [place] [address] May, Other chronic pain G89.29 [facility] [employer] [address] [place] [id number] May, Low back pain M54.5 [facility] [address] [id number], [place] [address] May, [facility] [address]00565100[place], [place] [address] Apr, Other chronic pain G89.29 [facility] [address]00565100[place], [place] [address] Apr, [facility] [address]00565100[place], [place] [address] Apr, Via [employer] [address] [place] [id number] 19 Apr, 2018 Closed compression fracture of L3 lumbar vertebra with routine healing, subsequent encounter S32.030D [facility] [employer] [address] [place] [id number] 14 Apr, 2018 Low back pain M54.5 [facility] [employer] [address] [place] [id number] 12 Apr, 2018 Coccydynia M53.3 [facility] [address] [id number] [place] [address] March, [facility] [address] [id number] [place] [address] March, Other chronic pain G89.29 [facility] [address] [id number] [place] [address] March, [facility] [address] [id number] [place] [address] March, [facility] [address] [id number] [place] [address] Feb, [facility] [address] [id number] [place] [address] Feb, Other chronic pain G89.29 [facility] [employer] [address] [place] [id number] Feb, Other chronic pain G89.29 and Anxiety F41.9 [facility] [address] [id number] [place] [address] Feb, [facility] [address] [id number] [place] [address] Jan, [facility] [address] [id number] [place] [address] Jan, [facility] [address] [facility] [id number], [place] [address] Jan, [facility] [address] [id number] [place] [address] Jan, [facility] [address] [facility] [id number], [place] [address] Dec, Via [employer] [address] [place] [id number] Dec, Peripheral vascular disease I73.9 ; 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 ; Other chronic pain G89.29 ; Anxiety F41.9 ; Reactive depression F32.9 ; Insomnia G47.00 and Type 2 diabetes mellitus without complication, without long-term current use of insulin E11.[address] [id number] [place] [address] Nov, [facility] [address] [id number] [id number] Nov, Anxiety F41.9 [facility] [address] [facility] [id number], [place] [address] Nov, [facility] [address] [id number] [address] Nov, Anxiety F41.9 [facility] [employer] [address] [place] [id number] Nov, Status post surgery Z98.890 ; Confused R41.0 ; Anxiety F41.9 and Other chronic pain G89.29 [facility] [address] [id number] [address] Nov, Other chronic pain G89.29 [facility] [address] [facility] [id number], [place] [address] Oct, [facility] [address] [id number][place] [address] Oct, Other chronic pain G89.29 [facility] [address] [facility] [id number], [place] [address] Oct, Anxiety F41.9 [facility] [address] [id number][place] [address] Sep, Other chronic pain G89.29 [facility] [address] [id number] [address] Sep, Via [employer] [address] [place] [id number] Aug, Dysuria R30.0 and Anxiety F41.9 [facility] [address] [facility] [id number], [place] [address] Aug, [facility] [address] [id number] [address] Aug, Other chronic pain G89.29 [facility] [address]00565100[place], [place] [address] Jul, Other chronic pain G89.29 [facility] [address] [id number] [id number] Jun, [facility] [id number] [place] [id number] Jun, Other chronic pain G89.29 [facility] [address]00565100[place], [place] [address] Jun, [facility] [address]00565100[place], [place] [address] May, Other chronic pain G89.29 [facility] [address] [id number], [place] [address] Apr, Other chronic pain G89.29 [facility] [employer] [address] [place] [id number] Apr, Reactive depression F32.9 and Pharyngeal dysphagia R13.13 [facility] [address] [id number], [place] [address] Apr, Urinary tract infection without hematuria, site unspecified N39.0 [facility] [address] [id number], [place] [address] March, Other chronic pain G89.29 [facility] [address]00565100[place], [place] [address] Feb, Other chronic pain G89.29 [facility] [address]00565100[place], [place] [address] Feb, [facility] [id number] [place] [id number] Feb, Via [facility] [employer] [address] [place] [id number] Feb, Dysuria R30.0 and Ventral hernia without obstruction or gangrene K43.9 [facility] [id number] [place] [address] Jan, Other chronic pain G89.29 [facility] [id number] [place] [id number] Dec, Other chronic pain G89.29 [facility] [id number] [place] [address] Nov, Other chronic pain G89.29 Via [employer] [address] [place] [address] Nov, Lymphadenitis I88.9 [facility] [address] [place] [address] Nov, Other chronic pain G89.29 [facility] [address] [place] [address] Nov, [facility] [id number] [place] [id number] Nov, Other chronic pain G89.29 [facility] [employer] [address] [place] [address] Oct, Low back pain M54.5 ; Hypertension I10 and Type 2 diabetes mellitus without complication, without long-term current use of insulin E11.9 [facility] [address] [place] [address] Oct, [facility] [address] [place] [address] Oct, [facility] [address] [facility] [id number], [place] [address] Oct, [facility] [address] [facility] [id number], [place] [address] Oct, [facility] [address] [facility] [id number], [place] [address] Sep, [facility] [address] [facility] [id number], [place] [address] Sep, [facility] [address] [facility] [id number], [place] [address] Aug, Other chronic pain G89.29 [facility] [address] [facility] [id number], [place] [address] Jul, [facility] [address] [facility] [id number], [place] [address] Jul, [facility] [address] [facility] [id number], [place] [address] Jul, [facility] [address] [facility] [id number], [place] [address] Jun, [facility] [address] [id number], [place] [address] Jun, [facility] [address] [facility] [address] [place] [id number] Jun, Low back pain M54.5 ; Other chronic pain G89.29 and Coronary artery disease I25.10 [facility] [address] [facility] [id number], [place] [address] Jun, [facility] [address] [facility] [id number], [place] [address] May, [facility] [address] [facility] [id number], [place] [address] May, [facility] [address] [facility] [id number], [place] [address] May, Other chronic pain G89.29 [facility] [address]00565100[place], [place] [address] 13 May, 2016 [facility] [address] [id number], [place] [address] Apr, [facility] [address]00565100[place], [place] [address] 17 Apr, 2016 Acute cystitis without hematuria N30.00 [facility] [id number] [place] [address] 16 Apr, 2016 Acute cystitis without hematuria N30.00 ; Coronary artery disease I25.10 ; Low back pain M54.5 and Other chronic pain G89.29 [facility] [address] [id number], [place] [address] 13 Apr, 2016 Other chronic pain G89.29 [facility] [id number] [place] [address] March, Other chronic pain G89.29 [facility] [address]00565100[place], [place] [address] 18 Feb, 2016 [facility] [id number] [place] [address] 15 Feb, 2016 Arthritis M19.90 [facility] [address]00565100[place], [place] [address] Feb, [facility] [address]00565100[place], [place] [address] 30 Jan, 2016 [facility] [address]00565100[place], [place] [address] Jan, [facility] [address] [id number], [place] [address] Jan, Other chronic pain G89.29 [facility] [address]00565100[place], [place] [address] 17 Jan, 2016 Hypertension I10 ; Coronary artery disease I25.10 and Insomnia G47.00 [facility] [address]00565100[place], [place] [address] Jan, [facility] [address] [place] [address] Dec, Right hip pain M25.551 [facility] [id number] [place] [address] Dec, [facility] [id number] [place] [address] Dec, [facility] [id number] [place] [address] Dec, [facility] [id number] [place] [address] Dec, Other chronic pain G89.29 [facility] [id number] [place] [address] Dec, [facility] [address]00565100[place], [place] [address] Nov, [facility] [address] [place] [address] Nov, Other chronic pain G89.29 [facility] [address]00565100[place], [place] [address] Nov, Right hip pain M25.551 and Coronary artery disease I25.10 [facility] [address]00565[address], [place] [address] Nov, Other chronic pain G89.29 [facility] [address]00565100[place], [place] [address] Oct, [facility] [address]00565100[place], [place] [address] Oct, [facility] [address]00565100[place], [place] [address] Sep, [facility] [address]00565100[place], [place] [address] Sep, [facility] [id number] [place] [address] Aug, [facility] [address] [id number], [place] [address] Aug, Hypertension I10 ; Coronary artery disease I25.10 and Arthritis M19.90 [facility] [id number] [place] [address] Jun, [facility] [id number] [place] [address] Jun, Essential hypertension, benign 401.1 ; Other chronic pain 338.29 and Chronic airway obstruction, not elsewhere classified 496 [facility] [id number] [place] [address] Jun, [facility] [address] [id number], [place] [address] Jun, [facility] [address] [place] [address] Jun, [facility] [address] [place] [address] May, [facility] [address]00565100[place], [place] [address] May, [facility] [address]00565100[place], [place] [address] Apr, [facility] [address] [place] [address] Apr, [facility] [address] [place] [address] Apr, [facility] [address] [place] [address] March, [facility] [address] [facility] [id number] [place] [address] March, [facility] [address] [id number] [place] [address] March, [facility] [address] [id number] [place] [address] March, [facility] [address] [id number] [place] [address] March, Sialadenitis 527.2 [facility] [address] [id number] [place] [address] Feb, [facility] [address] [id number] [place] [address] Feb, [facility] [address] [facility] [id number] [place] [address] Feb, [facility] [address] [id number] [place] [address] Feb, [facility] [address] [id number] [place] [address] Feb, [facility] [address] [facility] [id number] [place] [address] Jan, [facility] [address] [id number] [place] [address] Jan, [facility] [address] [id number], [place] [address] Jan, [facility] [address] [id number] [place] [address] Jan, [facility] [address] [id number] [place] [address] Jan, [facility] [address] [id number] [place] [address] Jan, [facility] [address] [id number] [place] [address] Dec, [facility] [place] [facility] [address] [id number] [place] [address] Dec, [facility] [place] [facility] [address] [id number] [place] [address] Dec, 2014 [facility] [place] [facility] [address] [id number] [place] [address] Dec, [facility] [place] [facility] [address] [id number] [place] [address] Dec, [facility] [place] [facility] [address] [id number] [place] [address] Dec, [facility] [place] [facility] [address] [id number] [place] [address] Nov, [facility] [place] [facility] [address] [id number] [place] [address] Nov, [facility] [place] [facility] [address] [id number] [place] [address] Nov, [facility] [place] [facility] [address] [id number] [place] [address] Nov, [facility] [place] [facility] [address] [id number] [place] [address] Nov, [facility] [place] [facility] [address] [id number] [place] [address] Nov, [facility] [place] [facility] [address] [id number] [place] [address] Nov, [facility] [place] [facility] [address] [id number] [place] [address] Nov, [facility] [place] [facility] [address] [id number] [place] [address] Nov, [facility] [place] [facility] [address] [id number] [place] [address] Nov, [facility] [place] [facility] [address] [id number] [place] [address] Nov, [facility] [place] [facility] [address] [id number] [place] [address] Nov, [facility] [place] [facility] [address] [id number] [place] [address] Nov, [facility] [place] [facility] [address] [id number] [place] [address] Nov, [facility] [place] [facility] [address] [id number] [place] [address] Oct, [facility] [place] [facility] [address] [id number] [place] [address] Oct, [facility] [place] [facility] [address] [id number] [place] [address] Oct, [facility] [place] [facility] [address] [id number] [place] [address] Oct, [facility] [place] [facility] [address] [id number] [place] [address] Oct, [facility] [place] [facility] [address] [id number] [place] [address] Oct, [facility] [place] [facility] [address] [id number] [place] [address] 17 Oct, 2014 [facility] [place] [facility] [address] [id number] [place] [address] Oct, [facility] [place] [facility] [address] [id number] [place] [address] Oct, [facility] [place] [facility] [address] [id number] [place] [address] Sep, [facility] [place] [facility] [address] [id number] [place] [address] Sep, [facility] [place] [facility] [address] [id number] [place] [address] Sep, [facility] [place] [facility] [address] [id number] [place] [address] Sep, [facility] [place] [facility] [address] [id number] [place] [address] Sep, [facility] [place] [facility] [address] [id number] [place] [address] Sep, [facility] [place] [facility] [address] [id number] [place] [address] Sep, [facility] [place] [facility] [address] [id number] [place] [address] Sep, [facility] [place] [facility] [address] [id number] [place] [address] Sep, [facility] [place] [facility] [address] [id number] [place] [address] Sep, [facility] [place] [facility] [address] [id number] [place] [address] Sep, [facility] [place] [facility] [address] [id number] [place] [address] Sep, [facility] [place] [facility] [address] [id number] [address] Aug, [facility] [place] [facility] [address] [id number], [place] [address] Aug, [facility] [place] [facility] [address] [id number], [place] [address] Aug, [facility] [place] [facility] [address] [id number] [place] [address] Aug, [facility] [place] [facility] [address] [id number], [place] [address] Aug, [facility] [place] [facility] [address] [id number], [place] [address] Aug, [facility] [place] [facility] [address] [id number] [place] [address] 17 Aug, 2014 [facility] [place] [facility] [address] [id number] [place] [address] 17 Aug, 2014 [facility] [place] [facility] [address] [id number] [place] [address] 30 Jul, 2013 [facility] [place] [facility] [address] [id number] [place] [address] 30 Jul, 2013 [facility] [place] [facility] [address] [id number] [place] [address] 30 Jul, 2013 [facility] [place] [facility] [address] [id number] [place] [address] 30 Jul, 2013 [facility] [place] [facility] [address] [id number] [place] [address] 25 Jul, 2013 [facility] [place] [facility] [address] [id number] [place] [address] 25 Jul, 2013 [facility] [place] [facility] [address] [id number] [place] [address] 15 Jul, 2014 [facility] [place] [facility] [address] [id number] [place] [address] 15 Jul, 2014 [facility] [place] [facility] [address] [id number] [place] [address] 11 Jul, 2014 [facility] [place] [facility] [address] [id number] [place] [address] Jul, [facility] [place] [facility] [address] [id number] [place] [address] Jun, [facility] [place] [facility] [address] [id number] [place] [address] Jun, [facility] [place] [facility] [address] [id number] [place] [address] Jun, [facility] [place] [facility] [address] [id number] [place] [address] Jun, [facility] [place] [facility] [address] [id number] [place] [address] Jun, [facility] [place] [facility] [address] [id number] [place] [address] Jun, [facility] [place] [facility] [address] [id number] [place] [address] Jun, [facility] [place] [facility] [address] [id number] [place] [address] Jun, [facility] [place] [facility] [address] [id number] [place] [address] Jun, [facility] [place] [facility] [address] [id number] [place] [address] Jun, [facility] [place] [facility] [address] [id number] [place] [address] Jun, [facility] [place] [facility] [address] [id number] [place] [address] Jun, [facility] [place] [facility] [address] [id number] [place] [address] Jun, [facility] [place] [facility] [address] [id number] [place] [address] Jun, [facility] [place] [facility] [address] [id number] [place] [address] Jun, [facility] [place] [facility] [address] [id number] [place] [address] Jun, [facility] [place] [facility] [address] [id number] [place] [address] Jun, [facility] [place] [facility] [address] [id number] [place] [address] Jun, [facility] [place] [facility] [address] [id number] [place] [address] Jun, [facility] [place] [facility] [address] [id number] [place] [address] Jun, [facility] [place] [facility] [address] [id number] [place] [address] Jun, [facility] [place] [facility] [address] [id number] [place] [address] Jun, [facility] [place] [facility] [address] [id number] [place] [address] May, [facility] [place] [facility] [address] [id number] [place] [address] May, [facility] [place] [facility] [address] [id number] [place] [address] May, [facility] [place] [facility] [address] [id number] [place] [address] May, [facility] [place] [facility] [address] [id number] [place] [address] May, [facility] [place] [facility] [address] [id number] [place] [address] May, [facility] [place] [facility] [address] [id number] [place] [address] May, [facility] [place] [facility] [address] [id number] [place] [address] May, [facility] [place] [facility] [address] [id number] [place] [address] May, [facility] [place] [facility] [address] [id number] [place] [address] May, [facility] [place] [facility] [address] [id number] [place] [address] May, [facility] [place] [facility] [address] [id number] [place] [address] May, [facility] [place] [facility] [address] [id number] [place] [address] May, [facility] [place] [facility] [address] [id number] [place] [address] Apr, [facility] [place] [facility] [address] [id number] [place] [address] Apr, [facility] [place] [facility] [address] [id number] [place] [address] Apr, [facility] [place] [facility] [address] [id number] [place] [address] Apr, [facility] [place] [facility] [address] [id number] [place] [address] Apr, [facility] [place] [facility] [address] [id number] [place] [address] Apr, [facility] [place] [facility] [address] [id number] [place] [address] Apr, [facility] [place] [facility] [address] [id number] [place] [address] Apr, [facility] [place] [facility] [address] [id number] [place] [address] Apr, [facility] [place] [facility] [address] [id number] [place] [address] March, [facility] [place] [facility] [address] [id number] [place] [address] March, [facility] [place] [facility] [address] [id number] [place] [address] March, [facility] [place] [facility] [address] [id number] [place] [address] March, [facility] [place] [facility] [address] [id number] [place] [address] March, [facility] [place] [facility] [address] [id number] [place] [address] March, [facility] [place] [facility] [address] [id number] [place] [address] March, [facility] [address] [id number] [place] [address] March, [facility] [place] [facility] [address] [id number] [place] [address] March, [facility] [place] [facility] [address] [id number] [place] [address] March, [facility] [place] [facility] [address] [id number] [place] [address] March, [facility] [place] [facility] [address] [id number] [place] [address] March, [facility] [place] [facility] [address] [id number] [place] [address] March, [facility] [place] [facility] [address] [id number] [place] [address] March, [facility] [place] [facility] [address] [id number] [place] [address] March, [facility] [place] [facility] [address] [id number] [place] [address] March, [facility] [place] [facility] [address] [id number] [place] [address] March, [facility] [place] [facility] [address] [id number] [place] [address] March, [facility] [place] [facility] [address] [id number] [place] [address] March, [facility] [place] [facility] [address] [id number] [place] [address] March, [facility] [place] [facility] [address] [id number] [place] [address] Feb, [facility] [place] [facility] [address] [id number] [place] [address] Feb, [facility] [place] [facility] [address] [id number] [place] [address] 24 Feb, 2014 [facility] [place] [facility] [address] [id number] [place] [address] 24 Feb, 2014 [facility] [place] [facility] [address] [id number] [place] [address] Feb, [facility] [place] [facility] [address] [id number] [place] [address] Feb, [facility] [place] [facility] [address] [id number] [place] [address] Feb, [facility] [place] [facility] [address] [id number] [place] [address] Feb, [facility] [place] [facility] [address] [id number] [place] [address] Jan, [facility] [place] [facility] [address] [id number] [place] [address] Jan, [facility] [place] [facility] [address] [id number] [place] [address] Jan, [facility] [place] [facility] [address] [id number] [place] [address] Jan, [facility] [place] [facility] [address] [id number] [place] [address] Jan, [facility] [place] [facility] [address] [id number] [place] [address] Jan, [facility] [place] [facility] [address] [id number] [place] [address] Jan, [facility] [place] [facility] [address] [id number] [place] [address] Jan, [facility] [place] [facility] [address] [id number] [place] [address] Jan, [facility] [place] [facility] [address] [id number] [place] [address] Jan, [facility] [place] [facility] [address] [id number] [place] [address] Dec, [facility] [place] [facility] [address] [id number] [place] [address] Dec, [facility] [place] [facility] [address] [id number] [place] [address] Dec, [facility] [place] [facility] [address] [id number] [place] [address] Dec, [facility] [place] [facility] [address] [id number] [place] [address] Dec, [facility] [place] [facility] [address] [id number] [place] [address] Dec, [facility] [place] [facility] [address] [id number] [place] [address] Dec, [facility] [place] [facility] [address] [id number] [place] [address] Dec, [facility] [place] [facility] [address] [id number] [place] [address] Nov, [facility] [place] [facility] [address] [id number] [place] [address] Nov, [facility] [place] [facility] [address] [id number] [place] [address] Nov, [facility] [place] [facility] [address] [id number] [place] [address] Nov, [facility] [place] [facility] [address] [id number] [place] [address] Nov, [facility] [place] [facility] [address] [id number] [place] [address] Nov, [facility] [place] [facility] [address] [id number] [place] [address] Nov, [facility] [place] [facility] [address] [id number] [place] [address] Nov, [facility] [address] [id number] [place] [address] Nov, [facility] [place] [facility] [address] [id number] [place] [address] Nov, [facility] [address] [id number] [place] [address] Nov, [facility] [place] [facility] [address] [id number] [place] [address] Nov, [facility] [address] [id number] [place] [address] Nov, [facility] [place] [facility] [address] [id number] [place] [address] Oct, [facility] [address] [id number] [place] [address] 30 Oct, 2013 [facility] [place] [facility] [address] [id number] [place] [address] Oct, [facility] [address] [id number] [place] [address] Oct, [facility] [place] [facility] [address] [facility] [id number] [place] [address] Oct, [facility] [place] [facility] [address] [id number] [place] [address] Oct, [facility] [place] [facility] [address] [id number] [place] [address] 18 Oct, 2013 [facility] [place] [facility] [address] [id number] [place] [address] 18 Oct, 2013 [facility] [place] [facility] [address] [id number] [place] [address] 17 Oct, 2013 [facility] [place] [facility] [address] [id number] [place] [address] 17 Oct, 2013 [facility] [place] [facility] [address] [id number] [place] [address] Oct, [facility] [place] [facility] [address] [id number] [place] [address] Oct, [facility] [place] [facility] [address] [id number] [place] [address] Oct, [facility] [place] [facility] [address] [id number] [place] [address] Oct, [facility] [place] [facility] [address] [id number] [place] [address] Sep, [facility] [place] [facility] [address] [id number] [place] [address] Sep, [facility] [place] [facility] [address] [id number] [place] [address] Sep, [facility] [place] [facility] [address] [id number] [place] [address] Sep, [facility] [place] [facility] [address] [id number] [place] [address] Sep, [facility] [place] [facility] [address] [id number] [place] [address] Sep, [facility] [place] [facility] [address] [id number] [place] [address] Sep, [facility] [place] [facility] [address] [id number] [place] [address] Sep, [facility] [place] [facility] [address] [id number] [place] [address] Sep, [facility] [place] [facility] [address] [id number] [place] [address] Sep, [facility] [place] [facility] [address] [id number] [place] [address] Aug, [facility] [place] [facility] [address] [id number] [place] [address] 24 Aug, 2013 [facility] [place] [facility] [address] [id number] [place] [address] 24 Aug, 2013 [facility] [place] [facility] [address] [id number] [place] [address] 24 Aug, 2013 [facility] [place] [facility] [address] [id number] [place] [address] Aug, [facility] [place] [facility] [address] [id number], [place] [address] Aug, 2012 [facility] [place] [facility] [address] [id number] [place] [address] Aug, [facility] [place] [facility] [address] [id number], [place] [address] Aug, [facility] [place] [facility] [address] [id number], [place] [address] Aug, [facility] [place] [facility] [address] [id number], [place] [address] 22 Aug, 2012 [facility] [place] [facility] [address] [id number], [place] [address] 18 Aug, 2012 [facility] [place] [facility] [address] [id number], [place] [address] 18 Aug, 2012 [facility] [place] [facility] [address] [id number], [place] [address] 18 Aug, 2012 [facility] [place] [facility] [address] [id number], [place] [address] 18 Aug, 2012 [facility] [place] [facility] [address] [id number], [place] [address] 17 Aug, 2012 [facility] [place] [facility] [address] [id number], [place] [address] 14 Aug, 2012 [facility] [place] [facility] [address] [id number], [place] [address] 14 Aug, 2012 [facility] [place] [facility] [address] [id number] [place] [address] Aug, [facility] [address] [id number] [place] [address] 20 Jul, 2013 [facility] [place] [facility] [address] [id number] [place] [address] 19 Jul, 2013 [facility] [address] [id number] [place] [address] 18 Jul, 2013 [facility] [place] [facility] [address] [id number] [place] [address] Jul, [facility] [place] [facility] [address] [id number] [place] [address] Jul, [facility] [address] [id number] [place] [address] Jun, [facility] [address] [id number] [place] [address] Jun, [facility] [address] [id number] [place] [address] Jun, [facility] [place] [facility] [address] [id number] [place] [address] Jun, [facility] [address] [id number] [place] [address] Jun, [facility] [place] [facility] [address] [id number] [place] [address] Jun, [facility] [place] [facility] [address] [id number] [place] [address] Jun, [facility] [place] [facility] [address] [id number] [place] [address] Jun, [facility] [place] [facility] [address] [id number] [place] [address] Jun, [facility] [place] [facility] [address] [id number] [place] [address] Jun, [facility] [place] [facility] [address] [id number] [place] [address] May, [facility] [place] [facility] [address] [id number] [place] [address] May, [facility] [place] [facility] [address] [id number] [place] [address] May, [facility] [place] [facility] [address] [id number] [place] [address] May, [facility] [place] [facility] [address] [id number] [place] [address] May, [facility] [place] [facility] [address] [id number] [place] [address] May, [facility] [place] [facility] [address] [id number] [place] [address] May, [facility] [place] [facility] [address] [id number] [place] [address] May, [facility] [place] [facility] [address] [id number] [place] [address] May, [facility] [place] [facility] [address] [id number] [place] [address] Apr, [facility] [place] [facility] [address] [id number] [place] [address] Apr, [facility] [place] [facility] [address] [id number] [place] [address] Apr, [facility] [place] [facility] [address] [id number] [place] [address] Apr, [facility] [place] [facility] [address] [id number] [place] [address] Apr, [facility] [place] [facility] [address] [id number] [place] [address] Apr, [facility] [place] [facility] [address] [id number], [place] [address] Apr, [facility] [address] [id number] [place] [address] March, [facility] [address] [id number] [place] [address] Feb, [facility] [address] [id number] [place] [address] Feb, [facility] [address] [id number] [place] [address] Feb, [facility] [address] [id number] [place] [address] Jan, [facility] [address] [id number] [place] [address] Jan, [facility] [address] [id number] [place] [address] Jan, [facility] [address] [id number] [place] [address] Jan, [facility] [address] [id number] [place] [address] Jan, [facility] [address] [facility] [id number] [place] [address] Jan, [facility] [address] [id number] [place] [address] Jan, [facility] [address] [id number] [place] [address] Jan, [facility] [address] [id number] [place] [address] Dec, [facility] [place] [facility] [address] [id number] [place] [address] Dec, [facility] [address] [id number] [place] [address] Dec, [facility] [address] [id number] [place] [address] 11 Dec, 2012 [facility] [address] [id number] [place] [address] 07 Dec, 2012 [facility] [place] [facility] [address] [id number] [place] [address] 06 Dec, 2012 [facility] [place] [facility] [address] [id number] [place] [address] 05 Dec, 2012 [facility] [place] [facility] [address] [id number] [place] [address] Nov, [facility] [place] [facility] [address] [id number] [place] [address] 24 Nov, 2012 [facility] [address] [id number] [place] [address] Nov, [facility] [address] [id number] [place] [address] 15 Nov, 2012 [facility] [place] [facility] [address] [id number] [place] [address] Nov, [facility] [address] [id number] [place] [address] Nov, [facility] [place] [facility] [address] [id number] [place] [address] Nov, [facility] [place] [facility] [address] [id number] [place] [address] Oct, [facility] [place] [facility] [address] [id number] [place] [address] Oct, [facility] [place] [facility] [address] [id number] [place] [address] Oct, [facility] [place] [facility] [address] [id number] [place] [address] Oct, [facility] [place] [facility] [address] [id number] [place] [address] Oct, [facility] [place] [facility] [address] [id number] [place] [address] Oct, [facility] [place] [facility] [address] [id number] [place] [address] Oct, [facility] [place] [facility] [address] [id number] [place] [address] Oct, [facility] [place] [facility] [address] [id number] [place] [address] Oct, [facility] [place] [facility] [address] [id number] [place] [address] Oct, [facility] [place] [facility] [address] [id number] [place] [address] Oct, [facility] [place] [facility] [address] [id number] [place] [address] Oct, [facility] [place] [facility] [address] [id number] [place] [address] Sep, [facility] [place] [facility] [address] [id number] [place] [address] Sep, [facility] [place] [facility] [address] [id number] [place] [address] Sep, [facility] [place] [facility] [address] [id number] [address] Sep, [facility] [place] [facility] [address] [id number], [place] [address] Sep, [facility] [place] [facility] [address] [id number], [place] [address] Sep, [facility] [place] [facility] [address] [id number], [place] [address] Sep, [facility] [place] [facility] [address] [id number] [place] [address] Sep, [facility] [place] [facility] [address] [id number] [place] [address] Sep, 2011 [facility] [place] [facility] [address] [id number] [place] [address] Sep, [facility] [place] [facility] [address] [id number] [place] [address] Sep, [facility] [place] [facility] [address] [id number] [place] [address] Aug, [facility] [place] [facility] [address] [id number] [place] [address] Aug, [facility] [place] [facility] [address] [id number] [place] [address] Aug, [facility] [place] [facility] [address] [id number] [place] [address] Aug, [facility] [place] [facility] [address] [id number] [place] [address] Aug, [facility] [place] [facility] [address] [id number] [place] [address] Aug, [facility] [place] [facility] [address] [id number] [place] [address] Aug, [facility] [place] [facility] [address] [id number] [place] [address] Aug, [facility] [place] [facility] [address] [id number] [place] [address] Aug, [facility] [place] [facility] [address] [id number] [place] [address] Aug, [facility] [place] [facility] [address] [id number] [place] [address] 22 Jul, 2012 [facility] [place] [facility] [address] [id number] [place] [address] 20 Jul, 2012 [facility] [place] [facility] [address] [id number] [place] [address] Jul, [facility] [place] [facility] [address] [id number] [place] [address] Jul, [facility] [place] [facility] [address] [id number] [place] [address] Jun, [facility] [place] [facility] [address] [id number] [place] [address] Jun, [facility] [place] [facility] [address] [id number] [place] [address] Jun, [facility] [place] [facility] [address] [id number] [place] [address] Jun, [facility] [place] [facility] [address] [id number] [place] [address] Jun, [facility] [place] [facility] [address] [id number] [place] [address] Jun, [facility] [place] [facility] [address] [id number] [place] [address] Jun, [facility] [place] [facility] [address] [id number] [place] [address] May, [facility] [place] [facility] [address] [id number] [place] [address] May, [facility] [place] [facility] [address] [id number] [place] [address] May, [facility] [place] [facility] [address] [id number] [place] [address] May, [facility] [place] [facility] [address] [id number] [place] [address] May, [facility] [place] [facility] [address] [id number] [place] [address] Apr, [facility] [place] [facility] [address] [id number] [place] [address] Apr, [facility] [place] [facility] [address] [id number] [place] [address] Apr, [facility] [address] [id number] [place] [address] Apr, [facility] [address] [id number] [place] [address] Apr, [facility] [address] [id number] [place] [address] March, [facility] [address] [id number] [place] [address] March, [facility] [address] [id number] [place] [address] March, [facility] [address] [id number] [place] [address] March, [facility] [address] [id number] [place] [address] March, [facility] [address] [id number] [place] [address] March, [facility] [address] [id number] [place] [address] March, [facility] [address] [id number] [place] [address] March, [facility] [address] [id number] [place] [address] March, [facility] [place] [facility] [address] [id number] [place] [address] March, [facility] [place] [facility] [address] [id number] [place] [address] Feb, [facility] [place] [facility] [address] [id number] [place] [address] Feb, [facility] [address] [id number] [place] [address] Feb, [facility] [place] [facility] [address] [id number] [place] [address] Feb, [facility] [place] [facility] [address] [id number] [place] [address] Feb, [facility] [place] [facility] [address] [id number] [place] [address] Feb, [facility] [place] [facility] [address] [id number] [place] [address] Feb, [facility] [place] [facility] [address] [id number] [place] [address] Feb, [facility] [place] [facility] [address] [id number] [place] [address] Feb, [facility] [place] [facility] [address] [id number] [place] [address] Jan, [facility] [place] [facility] [address] [id number] [place] [address] Jan, [facility] [place] [facility] [address] [id number] [place] [address] Jan, [facility] [place] [facility] [address] [id number] [place] [address] Jan, [facility] [place] [facility] [address] [id number] [place] [address] Dec, [facility] [place] [facility] [address] [id number] [place] [address] Dec, [facility] [place] [facility] [address] [id number] [place] [address] Nov, [facility] [place] [facility] [address] [id number] [place] [address] Nov, [facility] [place] [facility] [address] [id number] [place] [address] Nov, [facility] [place] [facility] [address] [id number] [address] Nov, [facility] [address] [id number] [address] Nov, [facility] [id number] [address] Oct, [facility] [id number] [address] Oct, [facility] [id number], [place] [address] Oct, [facility] [id number] [address] Oct, [facility] [id number] [place] [address] Oct, [facility] [id number] [place] [address] Oct, [facility] [id number] [place] [address] Oct, [facility] [id number] [place] [address] Oct, [facility] [id number] [place] [address] Sep, IMMUNIZATIONS No Known Immunizations SOCIAL HISTORY Never Assessed REASON FOR VISIT intermediate Refill Request PLAN OF CARE VITAL SIGNS MEDICATIONS Medication Instructions Dosage Frequency Start Date End Date Duration Status Eliquis 5 MG Orally 2 times a day 1 tablet 12h 30 days Active Symbicort 160-4.5 MCG/ACT Inhalation 2 times a day 2 puffs 12h 30 days Active Tamsulosin HCl 0.4 MG Orally Once a day 1 capsule 24h 30 days Active RESULTS No Results PROCEDURES No Known procedures INSTRUCTIONS MEDICATIONS ADMINISTERED No Known Medications MEDICAL (GENERAL) HISTORY Type Description Date 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
--- OUTSIDE RECORDS SUMMARY | 2019-04-16 15:44 | XMS REPORT ---
Author Author SHAHNAZ MARQUEZ [facility] Address [address] [place] [address] Care Team Providers Care Bill Sorter Name Role Phone SHAHNAZ MARQUEZ Unavailable PROBLEMS Type Condition ICD9-CM Code GMH91-OK Code Onset Dates Condition Status SNOMED Code Problem Reactive depression F32.9 Active 05130290 Problem Anxiety F41.9 Active 22995549 Problem Pharyngeal dysphagia R13.13 Active 15581354101700 Problem Suprapubic catheter Z93.59 Active 689501415 Problem Encounter for suprapubic catheter care Z43.5 Active 240727672 Problem Insomnia G47.00 Active 374494785 Problem Peripheral vascular disease I73.9 Active 163471429 Problem 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 Active 75352122 Problem Paroxysmal atrial fibrillation I48.0 Active 864810419 Problem Hypertension I10 Active 87436866 Problem Other chronic pain G89.29 Active 36009557 Problem Low back pain M54.5 Active 166298814 Problem Coronary artery disease I25.10 Active 07654115 Problem Type 2 diabetes mellitus without complication, without long-term current use of insulin E11.9 Active 558003623 Problem Hyperlipidemia E78.5 Active 01239971 Problem Ventral hernia without obstruction or gangrene K43.9 Active 045724866 ALLERGIES No Information ENCOUNTERS Encounter Location Date Diagnosis [facility] [id number] [address] Oct, Suprapubic catheter Z93.59 [facility] [id number] [address] Oct, Via [facility] [place] [address] [place] [id number] Oct, [facility] [address] [facility] [id number], [place] [address] Oct, Anxiety F41.9 [facility] [address] [id number], [place] [address] Oct, Anxiety F41.9 Via [employer] [address] [place] [id number] Oct, Other chronic pain G89.29 [facility] [address] [id number], [place] [address] Sep, Other chronic pain G89.29 Via [employer] [address] [place] [id number] Sep, Suprapubic catheter Z93.59 and Cervicalgia M54.2 [facility] [id number] [place] [address] Sep, [facility] [id number] [place] [address] Sep, [facility] [address] [facility] [id number] [place] [address] Sep, Via [employer] [address] [place] [id number] Aug, Cystitis N30.90 [facility] [address] [id number] [place] [address] Aug, [facility] [address] [facility] [id number] [place] [address] Aug, Other chronic pain G89.29 [facility] [address] [id number] [place] [address] Aug, Via [employer] [address] [place] [id number] Aug, Encounter for suprapubic catheter care Z43.5 [facility] [address] [id number] [place] [address] Jul, Via [employer] [address] [place] [id number] Jul, [facility] [address] [id number] [place] [address] Jul, Other chronic pain G89.29 [facility] [address] [facility] [id number], [place] [address] Jul, [place] [address] [facility] [id number] [place] [address] Jul, Via [employer] [address] [place] [id number] Jun, 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 [place] [address] [facility] [id number] [place] [address] Jun, Other chronic pain G89.29 [place] [id number] [place] [address] Jun, Via [employer] [address] [place] [id number] May, Anxiety F41.9 ; Type 2 diabetes mellitus without complication, without long-term current use of insulin E11.9 ; Hypertension I10 ; Low back pain M54.5 ; Paroxysmal atrial fibrillation I48.0 and 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 [place] [address], [place] [address] May, Other chronic pain G89.29 Via [employer] [address] [place] [id number] May, Low back pain M54.5 [place] [address], [place] [address] May, [place] [id number], [place] [address] Apr, Other chronic pain G89.29 [place] [id number] [place] [address] Apr, [place] [id number] [place] [address] Apr, Via [employer] [address] [place] [id number] Apr, Closed compression fracture of L3 lumbar vertebra with routine healing, subsequent encounter S32.030D Via [employer] [address] [place] [id number] 14 Apr, 2018 Low back pain M54.5 Via [employer] [address] [place] [id number] Apr, Coccydynia M53.3 [facility] [address] [facility] [id number] [place] [address] March, [facility] [address] [facility] [id number] [place] [address] March, Other chronic pain G89.29 [facility] [id number] [place] [address] March, [facility] [id number] [place] [address] March, [facility] [id number] [place] [address] Feb, [facility] [id number] [place] [address] Feb, Other chronic pain G89.29 Via [employer] [address] [place] [id number] Feb, Other chronic pain G89.29 and Anxiety F41.9 [facility] [id number], [place] [address] Feb, [facility] [address] [facility] [id number] [place] [address] Jan, [facility] [address] [facility] [id number] [place] [address] Jan, [facility] [address] [facility] [id number] [place] [address] 13 Jan, 2018 [facility] [address] 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 [id number], [place] [address] Nov, [facility] [address] [id number] [id number] Nov, Anxiety F41.9 Via [facility] [employer] [facility] [address] [place] [id number] Nov, Status post surgery Z98.890 ; Confused R41.0 ; Anxiety F41.9 and Other chronic pain G89.29 [facility] [address] [id number] [id number] Nov, Other chronic pain G89.29 [facility] [address] [facility] [id number], [place] [address] Oct, [facility] [id number] [place] [id number] Oct, Other chronic pain G89.29 [facility] [address] [facility] [id number], [place] [address] Oct, Anxiety F41.9 [facility] [id number] [address] Sep, Other chronic pain G89.29 [facility] [address] [id number] [address] Sep, Via [employer] [address] [place] [id number] Aug, Dysuria R30.0 and Anxiety F41.9 [facility] [id number] [place] [address] Aug, [facility] [id number] [place] [id number] Aug, Other chronic pain G89.29 [facility] [id number] [place] [address] Jul, Other chronic pain G89.29 [facility] [address] [id number] Jun, [facility] [address] [id number] Jun, Other chronic pain G89.29 [facility] [id number] [place] [address] Jun, [facility] [id number] [place] [address] May, Other chronic pain G89.29 [facility] [id number] [place] [address] Apr, Other chronic pain G89.29 Via [employer] [address] [place] [id number] Apr, Reactive depression F32.9 and Pharyngeal dysphagia R13.13 [facility] [id number] [place] [address] Apr, Urinary tract infection without hematuria, site unspecified N39.0 [facility] [id number] [place] [address] March, Other chronic pain G89.29 [facility] [id number] [place] [address] Feb, Other chronic pain G89.29 [facility] [id number] [place] [address] Feb, [facility] [id number] [place] [id number] Feb, Via [facility] [address] [place] [id number] Feb, Dysuria R30.0 and Ventral hernia without obstruction or gangrene K43.9 [facility] [id number] [place] [address] Jan, Other chronic pain G89.29 [facility] [id number] [place] [id number] Dec, Other chronic pain G89.29 [facility] [id number] [place] [address] Nov, Other chronic pain G89.29 [facility] [address] [place] [id number] Nov, Lymphadenitis I88.9 [facility] [id number] [place] [address] Nov, Other chronic pain G89.29 [facility] [address] [place] [address] Nov, [facility] [id number] [place] [id number] Nov, Other chronic pain G89.29 [facility] [address] [place] [id number] Oct, Low back pain M54.5 ; Hypertension I10 and Type 2 diabetes mellitus without complication, without long-term current use of insulin E11.9 [facility] [address] [place] [address] Oct, [facility] [id number] [place] [address] Oct, [facility] [id number] [place] [address] Oct, [facility] [address] [facility] [id number], [place] [address] Oct, [facility] [address] [facility] [id number], [place] [address] Sep, [facility] [address] [facility] [id number], [place] [address] Sep, [facility] [address] [facility] [id number], [place] [address] Aug, Other chronic pain G89.29 [facility] [address] [facility] [id number], [place] [address] Jul, [facility] [address] [facility] [id number], [place] [address] Jul, [facility] [address] [facility] [id number], [place] [address] Jul, [facility] [id number], [place] [address] Jun, [facility] [id number], [place] [address] Jun, Via [facility] [place] [address] [place] [id number] Jun, Low back pain M54.5 ; Other chronic pain G89.29 and Coronary artery disease I25.10 [facility] [id number], [place] [address] Jun, [facility] [address] [facility] [id number], [place] [address] May, [facility] [address] [facility] [id number], [place] [address] May, [facility] [address] [facility] [id number], [place] [address] May, Other chronic pain G89.29 [facility] [id number], [place] [address] May, [facility] [address], [place] [address] Apr, [facility] [id number] [place] [address] Apr, Acute cystitis without hematuria N30.00 [facility] [id number] [place] [address] 16 Apr, 2016 Acute cystitis without hematuria N30.00 ; Coronary artery disease I25.10 ; Low back pain M54.5 and Other chronic pain G89.29 [facility] [id number] [place] [address] Apr, Other chronic pain G89.29 [facility] [id number] [place] [address] March, Other chronic pain G89.29 [facility] [id number] [place] [address] Feb, [facility] [id number] [place] [address] Feb, Arthritis M19.90 [facility] [id number] [place] [address] Feb, [facility] [address], [place] [address] Jan, [facility] [address] [place] [address] Jan, [facility] [address] [place] [address] Jan, Other chronic pain G89.29 [facility] [id number] [place] [address] Jan, Hypertension I10 ; Coronary artery disease I25.10 and Insomnia G47.00 [facility] [address] [place] [address] Jan, [facility] [address] [facility] [id number], [place] [address] Dec, Right hip pain M25.551 [facility] [id number], [place] [address] Dec, [facility] [address], [place] [address] Dec, [facility] [address] [facility] [id number], [place] [address] Dec, [facility] [id number] [place] [address] Dec, Other chronic pain G89.29 [facility] [address], [place] [address] Dec, [facility] [address] [place] [address] Nov, [facility] [address], [place] [address] Nov, Other chronic pain G89.29 [facility] [address], [place] [address] Nov, Right hip pain M25.551 and Coronary artery disease I25.10 [facility] [address], [place] [address] Nov, Other chronic pain G89.29 [facility] [id number], [place] [address] Oct, [facility] [address], [place] [address] Oct, [facility] [address], [place] [address] Sep, [facility] [address], [place] [address] Sep, [facility] [address], [place] [address] Aug, [facility] [id number] [place] [address] Aug, Hypertension I10 ; Coronary artery disease I25.10 and Arthritis M19.90 [facility] [id number] [place] [address] Jun, [facility] [id number] [place] [address] Jun, Essential hypertension, benign 401.1 ; Other chronic pain 338.29 and Chronic airway obstruction, not elsewhere classified 496 [facility] [address] [id number] [address] Jun, [facility] [id number] [place] [address] Jun, [facility] [id number] [place] [address] Jun, [facility] [id number] [place] [address] May, [facility] [address] [id number], [place] [address] May, [facility] [address], [place] [address] Apr, [facility] [address], [place] [address] Apr, [facility] [address] [place] [address] Apr, [facility] [address], [place] [address] March, [facility] [address] [place] [address] March, [facility] [address] [facility] [id number] [place] [address] March, [facility] [address] [id number] [place] [address] March, [facility] [address] [id number] [place] [address] March, Sialadenitis 527.2 [facility] [address] [id number] [place] [address] Feb, [facility] [address] [id number] [place] [address] Feb, [facility] [address] [id number] [place] [address] Feb, [facility] [address] [facility] [id number] [place] [address] Feb, [facility] [address] [facility] [id number] [place] [address] Feb, [facility] [address] [facility] [id number] [place] [address] Jan, [facility] [address] [facility] [id number] [place] [address] Jan, [facility] [address] [facility] [id number] [place] [address] Jan, [facility] [address] [id number], [place] [address] Jan, [facility] [address] [id number] [place] [address] Jan, [facility] [address] [facility] [id number] [place] [address] Jan, [facility] [address] [id number] [place] [address] Dec, [facility] [address] [id number] [place] [address] Dec, [facility] [place] [facility] [address] [id number] [place] [address] Dec, [facility] [place] [facility] [address] [id number] [place] [address] Dec, 2014 [facility] [place] [facility] [address] [id number] [place] [address] Dec, [facility] [place] [facility] [address] [id number] [place] [address] Dec, [facility] [place] [facility] [address] [id number] [place] [address] Nov, [facility] [place] [facility] [address] [id number] [place] [address] Nov, [facility] [place] [facility] [address] [id number] [place] [address] Nov, [facility] [place] [facility] [address] [id number] [place] [address] Nov, [facility] [place] [facility] [address] [id number] [place] [address] Nov, [facility] [place] [facility] [address] [id number] [place] [address] Nov, [facility] [place] [facility] [address] [id number] [place] [address] Nov, [facility] [place] [facility] [address] [id number], [place] [address] Nov, [facility] [place] [facility] [address] [id number] [place] [address] Nov, [facility] [place] [facility] [address] [id number] [place] [address] Nov, [facility] [place] [facility] [address] [id number], [place] [address] Nov, [facility] [place] [facility] [address] [id number] [place] [address] Nov, [facility] [place] [facility] [address] [id number] [place] [address] Nov, [facility] [place] [facility] [address] [id number] [place] [address] Nov, [facility] [place] [facility] [address] [id number] [place] [address] Oct, [facility] [place] [facility] [address] [id number] [place] [address] Oct, [facility] [place] [facility] [address] [id number] [place] [address] Oct, [facility] [place] [facility] [address] [id number] [place] [address] Oct, [facility] [place] [facility] [address] [id number] [place] [address] Oct, [facility] [place] [facility] [address] [id number] [place] [address] Oct, [facility] [place] [facility] [address] [id number] [place] [address] Oct, [facility] [place] [facility] [address] [id number] [place] [address] Oct, [facility] [place] [facility] [address] [id number] [place] [address] Oct, [facility] [place] [facility] [address] [id number] [place] [address] Sep, [facility] [place] [facility] [address] [id number] [place] [address] Sep, [facility] [place] [facility] [address] [id number] [place] [address] Sep, [facility] [place] [facility] [address] [id number] [place] [address] Sep, [facility] [place] [facility] [address] [id number] [place] [address] Sep, [facility] [place] [facility] [address] [id number] [place] [address] Sep, [facility] [place] [facility] [address] [id number] [place] [address] Sep, [facility] [place] [facility] [address] [id number] [place] [address] Sep, [facility] [place] [facility] [address] [id number] [place] [address] Sep, [facility] [place] [facility] [address] [id number] [place] [address] Sep, [facility] [place] [facility] [address] [id number] [place] [address] Sep, [facility] [place] [facility] [address] [id number][place] [address] Sep, [facility] [place] [facility] [address] [id number][place] [address] Aug, [facility] [place] [facility] [address] [id number], [place] [address] Aug, [facility] [place] [facility] [address] [id number], [place] [address] Aug, [facility] [place] [facility] [address] [id number], [place] [address] 29 Aug, 2014 [facility] [place] [facility] [address] [id number] [place] [address] Aug, [facility] [place] [facility] [address] [id number], [place] [address] Aug, [facility] [place] [facility] [address] [id number], [place] [address] Aug, [facility] [place] [facility] [address] [id number] [place] [address] 17 Aug, 2014 [facility] [place] [facility] [address] [id number] [place] [address] 30 Jul, 2013 [facility] [place] [facility] [address] [id number] [place] [address] 30 Jul, 2013 [facility] [place] [facility] [address] [id number] [place] [address] 30 Jul, 2013 [facility] [place] [facility] [address] [id number] [place] [address] 30 Jul, 2013 [facility] [place] [facility] [address] [id number] [place] [address] 25 Jul, 2013 [facility] [place] [facility] [address] [id number] [place] [address] 25 Jul, 2013 [facility] [place] [facility] [address] [id number] [place] [address] 15 Jul, 2013 [facility] [place] [facility] [address] [id number] [place] [address] 15 Jul, 2014 [facility] [place] [facility] [address] [id number] [place] [address] 11 Jul, 2014 [facility] [place] [facility] [address] [id number] [place] [address] Jul, [facility] [place] [facility] [address] [id number] [place] [address] Jun, [facility] [place] [facility] [address] [id number] [place] [address] Jun, [facility] [place] [facility] [address] [id number] [place] [address] Jun, [facility] [place] [facility] [address] [id number] [place] [address] Jun, [facility] [place] [facility] [address] [id number] [place] [address] Jun, [facility] [place] [facility] [address] [id number] [place] [address] Jun, [facility] [place] [facility] [address] [id number] [place] [address] Jun, [facility] [place] [facility] [address] [id number] [place] [address] Jun, [facility] [place] [facility] [address] [id number] [place] [address] Jun, [facility] [place] [facility] [address] [id number] [place] [address] Jun, [facility] [place] [facility] [address] [id number] [place] [address] Jun, [facility] [place] [facility] [address] [id number] [place] [address] Jun, [facility] [place] [facility] [address] [id number] [place] [address] Jun, [facility] [place] [facility] [address] [id number] [place] [address] Jun, [facility] [place] [facility] [address] [id number] [place] [address] Jun, [facility] [place] [facility] [address] [id number] [place] [address] Jun, [facility] [place] [facility] [address] [id number] [place] [address] Jun, [facility] [place] [facility] [address] [id number] [place] [address] Jun, [facility] [place] [facility] [address] [id number] [place] [address] Jun, [facility] [place] [facility] [address] [id number] [place] [address] Jun, [facility] [place] [facility] [address] [id number] [place] [address] Jun, [facility] [place] [facility] [address] [id number] [place] [address] Jun, [facility] [place] [facility] [address] [id number] [place] [address] May, [facility] [place] [facility] [address] [id number] [place] [address] May, [facility] [place] [facility] [address] [id number] [place] [address] May, [facility] [place] [facility] [address] [id number] [place] [address] May, [facility] [place] [facility] [address] [id number] [place] [address] May, [facility] [place] [facility] [address] [id number] [place] [address] May, [facility] [place] [facility] [address] [id number] [place] [address] May, [facility] [place] [facility] [address] [id number] [place] [address] May, [facility] [place] [facility] [address] [id number] [place] [address] May, [facility] [place] [facility] [address] [id number] [place] [address] May, [facility] [place] [facility] [address] [id number] [place] [address] May, [facility] [place] [facility] [address] [id number] [place] [address] May, [facility] [place] [facility] [address] [id number] [place] [address] May, [facility] [place] [facility] [address] [id number] [place] [address] Apr, [facility] [place] [facility] [address] [id number] [place] [address] Apr, [facility] [place] [facility] [address] [id number] [place] [address] Apr, [facility] [place] [facility] [address] [id number] [place] [address] Apr, [facility] [place] [facility] [address] [id number] [place] [address] Apr, [facility] [place] [facility] [address] [id number] [place] [address] Apr, [facility] [place] [facility] [address] [id number] [place] [address] Apr, [facility] [place] [facility] [address] [id number] [place] [address] Apr, [facility] [place] [facility] [address] [id number] [place] [address] Apr, [facility] [place] [facility] [address] [id number] [place] [address] March, [facility] [place] [facility] [address] [id number] [place] [address] March, [facility] [place] [facility] [address] [id number] [place] [address] March, [facility] [place] [facility] [address] [id number] [place] [address] March, [facility] [place] [facility] [address] [id number] [place] [address] March, [facility] [place] [facility] [address] [id number] [place] [address] March, [facility] [place] [facility] [address] [id number] [place] [address] March, [facility] [place] [facility] [address] [id number] [place] [address] March, [facility] [address] [id number] [place] [address] March, [facility] [place] [facility] [address] [id number] [place] [address] March, [facility] [place] [facility] [address] [id number] [place] [address] March, [facility] [place] [facility] [address] [id number] [place] [address] March, [facility] [place] [facility] [address] [id number] [place] [address] March, [facility] [place] [facility] [address] [id number] [place] [address] March, [facility] [place] [facility] [address] [id number] [place] [address] March, [facility] [place] [facility] [address] [id number] [place] [address] March, [facility] [place] [facility] [address] [id number] [place] [address] March, [facility] [place] [facility] [address] [id number] [place] [address] March, [facility] [place] [facility] [address] [id number] [place] [address] March, [facility] [place] [facility] [address] [id number] [place] [address] March, [facility] [place] [facility] [address] [id number] [place] [address] Feb, [facility] [place] [facility] [address] [id number] [place] [address] Feb, [facility] [place] [facility] [address] [id number] [place] [address] Feb, [facility] [place] [facility] [address] [id number] [place] [address] 24 Feb, 2014 [facility] [place] [facility] [address] [id number] [place] [address] Feb, [facility] [place] [facility] [address] [id number] [place] [address] Feb, [facility] [place] [facility] [address] [id number] [place] [address] Feb, [facility] [place] [facility] [address] [id number] [place] [address] Feb, [facility] [place] [facility] [address] [id number] [place] [address] Jan, [facility] [place] [facility] [address] [id number] [place] [address] Jan, [facility] [place] [facility] [address] [id number] [place] [address] Jan, [facility] [place] [facility] [address] [id number] [place] [address] Jan, [facility] [place] [facility] [address] [id number] [place] [address] Jan, [facility] [place] [facility] [address] [id number] [place] [address] Jan, [facility] [place] [facility] [address] [id number] [place] [address] Jan, [facility] [place] [facility] [address] [id number] [place] [address] Jan, [facility] [place] [facility] [address] [id number] [place] [address] Jan, [facility] [place] [facility] [address] [id number] [place] [address] Jan, [facility] [place] [facility] [address] [id number] [place] [address] Dec, [facility] [place] [facility] [address] [id number] [place] [address] Dec, [facility] [place] [facility] [address] [id number] [place] [address] Dec, [facility] [place] [facility] [address] [id number] [place] [address] Dec, [facility] [place] [facility] [address] [id number] [place] [address] Dec, [facility] [place] [facility] [address] [id number] [place] [address] Dec, [facility] [place] [facility] [address] [id number] [place] [address] Dec, [facility] [place] [facility] [address] [id number] [place] [address] Dec, [facility] [place] [facility] [address] [id number] [place] [address] Nov, [facility] [place] [facility] [address] [id number] [place] [address] Nov, [facility] [place] [facility] [address] [id number] [place] [address] Nov, [facility] [place] [facility] [address] [id number] [place] [address] Nov, [facility] [place] [facility] [address] [id number] [place] [address] Nov, [facility] [place] [facility] [address] [id number] [place] [address] Nov, [facility] [place] [facility] [address] [id number] [place] [address] Nov, [facility] [place] [facility] [address] [id number] [place] [address] Nov, [facility] [place] [facility] [address] [id number] [place] [address] Nov, [facility] [address] [id number] [place] [address] Nov, [facility] [place] [facility] [address] [id number] [place] [address] Nov, [facility] [address] [id number] [place] [address] Nov, [facility] [place] [facility] [address] [id number] [place] [address] Nov, [facility] [address] [id number] [place] [address] Oct, [facility] [place] [facility] [address] [id number] [place] [address] 30 Oct, 2013 [facility] [address] [id number] [place] [address] Oct, [facility] [place] [facility] [address] [id number] [place] [address] Oct, [facility] [address] [id number] [place] [address] Oct, [facility] [place] [facility] [address] [facility] [id number] [place] [address] Oct, [facility] [place] [facility] [address] [id number] [place] [address] 18 Oct, 2013 [facility] [place] [facility] [address] [id number] [place] [address] 18 Oct, 2013 [facility] [place] [facility] [address] [id number] [place] [address] 17 Oct, 2013 [facility] [place] [facility] [address] [id number] [place] [address] 17 Oct, 2013 [facility] [place] [facility] [address] [facility] [id number] [place] [address] Oct, [facility] [place] [facility] [address] [id number] [place] [address] Oct, [facility] [place] [facility] [address] [id number] [place] [address] Oct, [facility] [place] [facility] [address] [id number] [place] [address] Oct, [facility] [place] [facility] [address] [id number] [place] [address] Sep, [facility] [place] [facility] [address] [id number] [place] [address] Sep, [facility] [place] [facility] [address] [id number] [place] [address] Sep, [facility] [place] [facility] [address] [id number] [place] [address] Sep, [facility] [place] [facility] [address] [id number] [place] [address] Sep, [facility] [place] [facility] [address] [id number] [place] [address] Sep, [facility] [place] [facility] [address] [id number] [place] [address] Sep, [facility] [place] [facility] [address] [id number] [place] [address] Sep, [facility] [place] [facility] [address] [id number] [place] [address] Sep, [facility] [place] [facility] [address] [id number] [place] [address] Sep, [facility] [place] [facility] [address] [id number] [place] [address] Aug, [facility] [place] [facility] [address] [id number] [place] [address] Aug, [facility] [place] [facility] [address] [id number] [place] [address] 24 Aug, 2013 [facility] [place] [facility] [address] [id number] [place] [address] 24 Aug, 2013 [facility] [place] [facility] [address] [id number] [place] [address] Aug, 2012 [facility] [place] [facility] [address] [id number] [place] [address] Aug, [facility] [place] [facility] [address] [id number], [place] [address] Aug, 2012 [facility] [place] [facility] [address] [id number] [place] [address] Aug, [facility] [place] [facility] [address] [id number], [place] [address] Aug, [facility] [place] [facility] [address] [id number] [place] [address] Aug, [facility] [place] [facility] [address] [id number], [place] [address] 18 Aug, 2013 [facility] [place] [facility] [address] [id number], [place] [address] 18 Aug, 2013 [facility] [place] [facility] [address] [id number], [place] [address] 18 Aug, 2013 [facility] [place] [facility] [address] [id number], [place] [address] 18 Aug, 2013 [facility] [place] [facility] [address] [id number], [place] [address] 17 Aug, 2012 [facility] [place] [facility] [address] [id number] [place] [address] 14 Aug, 2013 [facility] [place] [facility] [address] [id number], [place] [address] 14 Aug, 2013 [facility] [place] [facility] [address] [id number], [place] [address] Aug, [facility] [place] [facility] [address] [id number] [place] [address] 20 Jul, 2012 [facility] [address] [id number] [place] [address] 19 Jul, 2013 [facility] [address] [id number] [place] [address] 18 Jul, 2013 [facility] [address] [id number] [place] [address] 11 Jul, 2013 [facility] [address] [id number] [place] [address] 11 Jul, 2013 [facility] [address] [id number] [place] [address] 28 Jun, 2013 [facility] [address] [id number] [place] [address] Jun, [facility] [address] [id number] [place] [address] Jun, [facility] [address] [id number] [place] [address] 15 Jun, 2013 [facility] [address] [id number] [place] [address] 14 Jun, 2013 [facility] [address] [id number] [place] [address] Jun, [facility] [place] [facility] [address] [id number] [place] [address] Jun, [facility] [place] [facility] [address] [id number] [place] [address] Jun, [facility] [place] [facility] [address] [id number] [place] [address] Jun, [facility] [place] [facility] [address] [id number] [place] [address] Jun, [facility] [place] [facility] [address] [id number] [place] [address] May, [facility] [place] [facility] [address] [id number] [place] [address] May, [facility] [place] [facility] [address] [id number] [place] [address] May, [facility] [place] [facility] [address] [id number] [place] [address] May, [facility] [place] [facility] [address] [id number] [place] [address] May, [facility] [place] [facility] [address] [id number] [place] [address] 16 May, 2013 [facility] [place] [facility] [address] [id number] [place] [address] May, [facility] [place] [facility] [address] [id number] [place] [address] May, [facility] [place] [facility] [address] [id number] [place] [address] May, [facility] [place] [facility] [address] [id number] [place] [address] Apr, [facility] [place] [facility] [address] [id number] [place] [address] Apr, [facility] [place] [facility] [address] [id number] [place] [address] Apr, [facility] [place] [facility] [address] [id number] [place] [address] Apr, [facility] [place] [facility] [address] [id number] [place] [address] Apr, [facility] [place] [facility] [address] [id number] [place] [address] Apr, [facility] [place] [facility] [address] [id number] [place] [address] Apr, [facility] [place] [facility] [address] [id number], [place] [address] March, [facility] [address] [id number] [place] [address] Feb, [facility] [address] [id number] [place] [address] Feb, [facility] [address] [id number] [place] [address] Feb, [facility] [address] [id number] [place] [address] Jan, [facility] [address] [id number] [place] [address] Jan, [facility] [address] [id number] [place] [address] Jan, [facility] [address] [facility] [id number] [place] [address] Jan, [facility] [address] [id number] [place] [address] Jan, [facility] [address] [id number] [place] [address] Jan, [facility] [address] [facility] [id number] [place] [address] Jan, [facility] [address] [id number] [place] [address] Jan, [facility] [address] [id number] [place] [address] Dec, [facility] [place] [facility] [address] [id number] [place] [address] Dec, [facility] [place] [facility] [address] [id number] [place] [address] Dec, [facility] [address] [facility] [id number], [place] [address] Dec, [facility] [address] [id number] [place] [address] 07 Dec, 2012 [facility] [address] [id number] [place] [address] 06 Dec, 2012 [facility] [address] [id number] [place] [address] 05 Dec, 2012 [facility] [address] [id number] [place] [address] Nov, [facility] [address] [id number] [place] [address] 24 Nov, 2012 [facility] [address] [id number] [place] [address] Nov, [facility] [address] [id number] [place] [address] Nov, [facility] [address] [id number] [place] [address] Nov, [facility] [address] [id number] [place] [address] Nov, [facility] [address] [id number] [place] [address] Nov, [facility] [address] [id number] [place] [address] Oct, [facility] [address] [id number] [place] [address] Oct, [facility] [place] [facility] [address] [id number] [place] [address] Oct, [facility] [place] [facility] [address] [id number] [place] [address] Oct, [facility] [address] [id number] [place] [address] 17 Oct, 2012 [facility] [address] [id number], [place] [address] Oct, [facility] [place] [facility] [address] [id number] [place] [address] Oct, [facility] [place] [facility] [address] [id number] [place] [address] Oct, [facility] [place] [facility] [address] [id number] [place] [address] Oct, [facility] [place] [facility] [address] [id number] [place] [address] Oct, [facility] [place] [facility] [address] [id number] [place] [address] Oct, [facility] [place] [facility] [address] [id number] [place] [address] Oct, [facility] [place] [facility] [address] [id number] [place] [address] Sep, [facility] [place] [facility] [address] [id number] [place] [address] Sep, [facility] [place] [facility] [address] [id number], [place] [address] Sep, [facility] [place] [facility] [address] [id number], [place] [address] Sep, [facility] [place] [facility] [address] [id number], [place] [address] Sep, [facility] [place] [facility] [address] [id number], [place] [address] Sep, [facility] [place] [facility] [address] [id number], [place] [address] Sep, [facility] [place] [facility] [address] [id number], [place] [address] Sep, [facility] [place] [facility] [address] [id number] [place] [address] Sep, [facility] [place] [facility] [address] [id number] [place] [address] Sep, [facility] [place] [facility] [address] [id number] [place] [address] Sep, [facility] [place] [facility] [address] [id number] [place] [address] Aug, [facility] [place] [facility] [address] [id number] [place] [address] Aug, [facility] [place] [facility] [address] [id number] [place] [address] Aug, [facility] [place] [facility] [address] [id number] [place] [address] Aug, [facility] [place] [facility] [address] [id number] [place] [address] Aug, [facility] [place] [facility] [address] [id number] [place] [address] Aug, [facility] [place] [facility] [address] [id number] [place] [address] Aug, [facility] [place] [facility] [address] [id number] [place] [address] Aug, [facility] [place] [facility] [address] [id number] [place] [address] Aug, [facility] [place] [facility] [address] [id number] [place] [address] Aug, [facility] [place] [facility] [address] [id number] [place] [address] 22 Jul, 2012 [facility] [place] [facility] [address] [id number] [place] [address] 20 Jul, 2012 [facility] [place] [facility] [address] [id number] [place] [address] 10 Jul, 2012 [facility] [place] [facility] [address] [id number] [place] [address] Jul, [facility] [place] [facility] [address] [id number] [place] [address] Jun, [facility] [place] [facility] [address] [id number] [place] [address] Jun, [facility] [place] [facility] [address] [id number] [place] [address] Jun, [facility] [place] [facility] [address] [id number] [place] [address] Jun, [facility] [place] [facility] [address] [id number] [place] [address] Jun, [facility] [place] [facility] [address] [id number] [place] [address] Jun, [facility] [place] [facility] [address] [id number] [place] [address] Jun, [facility] [place] [facility] [address] [id number] [place] [address] May, [facility] [place] [facility] [address] [id number] [place] [address] May, [facility] [place] [facility] [address] [id number] [place] [address] May, [facility] [place] [facility] [address] [id number] [place] [address] May, [facility] [place] [facility] [address] [id number] [place] [address] May, [facility] [place] [facility] [address] [id number] [place] [address] Apr, [facility] [place] [facility] [address] [id number] [place] [address] Apr, [facility] [place] [facility] [address] [id number] [place] [address] Apr, [facility] [place] [facility] [address] [id number] [place] [address] Apr, [facility] [address] [id number] [place] [address] Apr, [facility] [address] [id number] [place] [address] March, [facility] [address] [id number] [place] [address] March, [facility] [address] [id number] [place] [address] March, [facility] [address] [id number] [place] [address] March, [facility] [address] [id number] [place] [address] March, [facility] [address] [id number] [place] [address] March, [facility] [address] [id number] [place] [address] March, [facility] [address] [id number] [place] [address] March, [facility] [address] [id number] [place] [address] March, [facility] [address] [id number] [place] [address] March, [facility] [place] [facility] [address] [id number] [place] [address] Feb, [facility] [place] [facility] [address] [id number] [place] [address] Feb, [facility] [place] [facility] [address] [id number] [place] [address] Feb, [facility] [address] [id number] [place] [address] Feb, [facility] [address] [id number] [place] [address] 17 Feb, 2012 [facility] [place] [facility] [address] [id number] [place] [address] Feb, [facility] [place] [facility] [address] [id number] [place] [address] Feb, [facility] [place] [facility] [address] [id number] [place] [address] Feb, [facility] [place] [facility] [address] [id number] [place] [address] Feb, [facility] [place] [facility] [address] [id number] [place] [address] Jan, [facility] [place] [facility] [address] [id number] [place] [address] Jan, [facility] [place] [facility] [address] [id number] [place] [address] Jan, [facility] [place] [facility] [address] [id number] [place] [address] Jan, [facility] [place] [facility] [address] [id number] [place] [address] Dec, [facility] [place] [facility] [address] [id number] [place] [address] Dec, [facility] [place] [facility] [address] [id number] [place] [address] Nov, [facility] [place] [facility] [address] [id number] [place] [address] Nov, [facility] [place] [facility] [address] [id number] [place] [address] Nov, [facility] [place] [facility] [address] [id number] [place] [address] 16 Nov, 2011 [facility] [place] [facility] [address] [id number], [place] [address] Nov, [facility] [address] [facility] [id number] [address] 30 Oct, 2011 [facility] [address] [facility] [id number], [place] [address] Oct, [facility] [id number], [place] [address] Oct, [facility] [id number], [place] [address] Oct, [facility] [address] [facility] [id number], [place] [address] Oct, [facility] [id number] [place] [address] Oct, [facility] [id number], [place] [address] Oct, [facility] [id number], [place] [address] Oct, [facility] [address] [id number], [place] [address] Sep, IMMUNIZATIONS No Known Immunizations SOCIAL HISTORY Never Assessed REASON FOR VISIT [facility] pharmacy [facility] PLAN OF CARE VITAL SIGNS MEDICATIONS Unknown Medications RESULTS No Results PROCEDURES No Known procedures INSTRUCTIONS MEDICATIONS ADMINISTERED No Known Medications MEDICAL (GENERAL) HISTORY Type Description Date 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
[2019-04-16] MEDS ORDERED: CEFEPIME INJECTION 1,000 MG in WATER (STERILE) FOR INJECTION 10 ML IV ONE (15:45)
--- OUTSIDE RECORDS SUMMARY | 2019-04-16 15:45 | XMS REPORT ---
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 Name Role Phone SHAHNAZ MARQUEZ Unavailable PROBLEMS Type Condition ICD9-CM Code WAN58-GX Code Onset Dates Condition Status SNOMED Code Problem Reactive depression F32.9 Active 12769036 Problem Anxiety F41.9 Active 64432319 Problem Pharyngeal dysphagia R13.13 Active 25082653253714 Problem Suprapubic catheter Z93.59 Active 875315961 Problem Encounter for suprapubic catheter care Z43.5 Active 593484436 Problem Insomnia G47.00 Active 802173455 Problem Peripheral vascular disease I73.9 Active 805940468 Problem 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 Active 45904615 Problem Paroxysmal atrial fibrillation I48.0 Active 289297805 Problem Hypertension I10 Active 26161643 Problem Other chronic pain G89.29 Active 64431753 Problem Low back pain M54.5 Active 430817010 Problem Coronary artery disease I25.10 Active 12281223 Problem Type 2 diabetes mellitus without complication, without long-term current use of insulin E11.9 Active 086038562 Problem Hyperlipidemia E78.5 Active 19461938 Problem Ventral hernia without obstruction or gangrene K43.9 Active 531112120 ALLERGIES No Information ENCOUNTERS Encounter Location Date Diagnosis [facility], [place] [address] [facility] [id number] [address] Oct, Suprapubic catheter Z93.59 [facility], [place] [address] [id number] [address] Oct, Via [facility] [address] [place] [id number] Oct, [facility], [place] [address] [facility] [id number] [place] [address] Oct, Anxiety F41.9 [facility], [place] [address] [id number] [place] [address] Oct, Anxiety F41.9 Via [facility] [address] [place] [id number] Oct, Other chronic pain G89.29 [facility], [place] [address] [id number] [place] [address] Sep, Other chronic pain G89.29 [facility] [address] [place] [id number] Sep, Suprapubic catheter Z93.59 and Cervicalgia M54.2 [facility], [place] [address] [id number] [place] [address] Sep, [facility], [place] [address] [id number] [place] [address] Sep, [facility], [place] [address] [facility] [id number] [place] [address] Sep, Via [facility] [address] [place] [id number] Aug, Cystitis N30.90 [facility], [place] [address] [id number] [place] [address] Aug, [facility], [place] [address] [facility] [id number] [place] [address] Aug, Other chronic pain G89.29 [facility], [place] [address] [id number] [place] [address] Aug, Via [facility] [address] [place] [id number] Aug, Encounter for suprapubic catheter care Z43.5 [facility], [place] [address] [id number] [place] [address] Jul, Via [facility] [address] [place] [id number] Jul, [facility], [place] [address] [id number] [place] [address] Jul, Other chronic pain G89.29 [facility], [place] [address] [facility] [id number] [place] [address] Jul, [place] [address] [facility] [id number] [place] [address] Jul, Via [facility] [facility] [address] [place] [id number] Jun, 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 [place] [address] [facility] [id number] [place] [address] Jun, Other chronic pain G89.29 [place] [id number] [place] [address] Jun, Via [facility] [address] [place] [id number] May, Anxiety F41.9 ; Type 2 diabetes mellitus without complication, without long-term current use of insulin E11.9 ; Hypertension I10 ; Low back pain M54.5 ; Paroxysmal atrial fibrillation I48.0 and 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 [place] [address] [address] May, Other chronic pain G89.29 [facility] [address] [place] [id number] May, Low back pain M54.5 [place] [address]00565100[place] [address] May, [place] [address] [id number] [address] Apr, Other chronic pain G89.29 [place] [id number] [place] [address] Apr, [place] [id number] [place] [address] Apr, Via [facility] [address] [place] [id number] Apr, Closed compression fracture of L3 lumbar vertebra with routine healing, subsequent encounter S32.030D [facility] [address] [place] [id number] 14 Apr, 2018 Low back pain M54.5 [facility] [address] [place] [id number] Apr, Coccydynia M53.3 [facility], [place] [address] [facility] [id number] [place] [address] March, [facility], [place] [address] [facility] [id number] [place] [address] March, Other chronic pain G89.29 [facility], [place] [address] [id number] [place] [address] March, [facility], [place] [id number] [place] [address] March, [facility], [place] [id number] [place] [address] Feb, [facility], [place] [id number] [place] [address] Feb, Other chronic pain G89.29 [facility] [address] [place] [id number] Feb, Other chronic pain G89.29 and Anxiety F41.9 [facility], [place] [address] [id number] [address] Feb, [facility], [place] [address] [facility] [id number] [place] [address] Jan, [facility], [place] [address] [facility] [id number] [place] [address] Jan, [facility], [place] [address] [facility] [id number] [place] [address] 13 Jan, 2018 [facility], [place] [address] [facility] [id number] [place] [address] Jan, [facility], [place] [id number] [place] [address] Dec, Via [facility] [address] [place] [id number] Dec, Peripheral vascular disease I73.9 ; 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 ; Other chronic pain G89.29 ; Anxiety F41.9 ; Reactive depression F32.9 ; Insomnia G47.00 and Type 2 diabetes mellitus without complication, without long-term current use of insulin E11.9 [facility] [place] [address] [id number] [place] [address] Nov, [facility] [address] [id number] [place] [id number] Nov, Anxiety F41.9 [facility], [place] [address] [facility] [id number] [place] [address] Nov, [facility] [address] [id number] [place] [id number] Nov, Anxiety F41.9 Via [facility] [facility] [address] [place] [id number] Nov, Status post surgery Z98.890 ; Confused R41.0 ; Anxiety F41.9 and Other chronic pain G89.29 [facility] [address] [id number] [place] [id number] Nov, Other chronic pain G89.29 [facility], [place] [address] [facility] [id number] [place] [address] Oct, [facility] [id number] [place] [id number] Oct, Other chronic pain G89.29 [facility], [place] [address] [facility] [id number] [place] [address] Oct, Anxiety F41.9 [facility] [id number] [place] [address] Sep, Other chronic pain G89.29 [facility] [address] [id number] [place] [id number] Sep, Via [facility] [address] [place] [id number] Aug, Dysuria R30.0 and Anxiety F41.9 [facility], [place] [id number] [place] [address] Aug, [facility] [id number] [place] [id number] Aug, Other chronic pain G89.29 [facility], [place] [id number] [place] [address] Jul, Other chronic pain G89.29 [facility] [address] [id number] Jun, [facility] [address] [id number] Jun, Other chronic pain G89.29 [facility], [place] [id number] [place] [address] Jun, [facility], [place] [id number] [place] [address] May, Other chronic pain G89.29 [facility], [place] [id number] [place] [address] Apr, Other chronic pain G89.29 [facility] [address] [place] [id number] Apr, Reactive depression F32.9 and Pharyngeal dysphagia R13.13 [facility], [place] [id number] [place] [address] Apr, Urinary tract infection without hematuria, site unspecified N39.0 [facility], [place] [id number] [place] [address] March, Other chronic pain G89.29 [facility], [place] [id number] [place] [address] Feb, Other chronic pain G89.29 [facility], [place] [id number] [place] [address] Feb, [facility] [id number] [place] [id number] Feb, Via [facility] [address] [place] [id number] Feb, Dysuria R30.0 and Ventral hernia without obstruction or gangrene K43.9 [facility], [place] [id number] [place] [address] Jan, Other chronic pain G89.29 [facility] [id number] [place] [id number] Dec, Other chronic pain G89.29 [facility], [place] [id number] [place] [address] Nov, Other chronic pain G89.29 [facility] [address] [place] [id number] Nov, Lymphadenitis I88.9 [facility], [place] [id number] [place] [address] Nov, Other chronic pain G89.29 [facility], [place] [id number] [place] [address] Nov, [facility] [id number] [place] [id number] Nov, Other chronic pain G89.29 [facility] [address] [place] [id number] Oct, Low back pain M54.5 ; Hypertension I10 and Type 2 diabetes mellitus without complication, without long-term current use of insulin E11.9 [facility], [place] [id number] [place] [address] Oct, [facility], [place] [id number] [place] [address] Oct, [facility], [place] [id number] [place] [address] Oct, [facility], [place] [address] [facility] [id number] [place] [address] Oct, [facility], [place] [address] [facility] [id number] [place] [address] Sep, [facility], [place] [address] [facility] [id number] [place] [address] Sep, [facility], [place] [address] [facility] [id number] [place] [address] Aug, Other chronic pain G89.29 [facility], [place] [address] [facility] [id number] [place] [address] Jul, [facility], [place] [address] [facility] [id number] [place] [address] Jul, [facility], [place] [address] [facility] [id number] [place] [address] Jul, [facility], [place] [address] [id number] [address] Jun, [facility], [place] [address] [id number] [address] Jun, [facility] [address] [place] [id number] Jun, Low back pain M54.5 ; Other chronic pain G89.29 and Coronary artery disease I25.10 [facility], [place] [address] [id number] [address] Jun, [facility], [place] [address] [facility] [id number] [place] [address] May, [facility], [place] [address] [facility] [id number] [place] [address] May, [facility], [place] [address] [facility] [id number] [place] [address] May, Other chronic pain G89.29 [facility], [place] [address] [id number] [address] May, [facility], [place] [address]100[place] [address] Apr, [facility], [place] [id number] [place] [address] Apr, Acute cystitis without hematuria N30.00 [facility], [place] [id number] [place] [address] 16 Apr, 2016 Acute cystitis without hematuria N30.00 ; Coronary artery disease I25.10 ; Low back pain M54.5 and Other chronic pain G89.29 [facility], [place] [id number] [place] [address] Apr, Other chronic pain G89.29 [facility], [place] [id number] [place] [address] March, Other chronic pain G89.29 [facility], [place] [id number] [place] [address] Feb, [facility], [place] [id number] [place] [address] Feb, Arthritis M19.90 [facility], [place] [id number] [place] [address] Feb, [facility], [place] [address]005[address] [address] Jan, [facility], [place] [address] [place] [address] Jan, [facility], [place] [address] [place] [address] Jan, Other chronic pain G89.29 [facility], [place] [id number] [place] [address] Jan, Hypertension I10 ; Coronary artery disease I25.10 and Insomnia G47.00 [facility], [place] [address] [place] [address] Jan, [facility], [place] [address] [facility] [id number] [place] [address] Dec, Right hip pain M25.551 [facility], [place] [address] [id number] [address] Dec, [facility], [place] [address] [address] Dec, [facility], [place] [address] [facility] [id number] [place] [address] Dec, [facility], [place] [id number] [place] [address] Dec, Other chronic pain G89.29 [facility], [place] [address] [address] Dec, [facility], [place] [id number] [place] [address] Nov, [facility], [place] [address] [address] Nov, Other chronic pain G89.29 [facility], [place] [address] [address] Nov, Right hip pain M25.551 and Coronary artery disease I25.10 [facility], [place] [address] [address] Nov, Other chronic pain G89.29 [facility], [place] [address] [id number] [address] Oct, [facility], [place] [address] [address] Oct, [facility], [place] [address] [address] Sep, [facility], [place] [address]100[place] [address] Sep, [facility], [place] [address] [address] Aug, [facility], [place] [id number] [place] [address] Aug, Hypertension I10 ; Coronary artery disease I25.10 and Arthritis M19.90 [facility], [place] [id number] [place] [address] Jun, [facility], [place] [id number] [place] [address] Jun, Essential hypertension, benign 401.1 ; Other chronic pain 338.29 and Chronic airway obstruction, not elsewhere classified 496 [facility], [place] [address] [id number] [address] Jun, [facility], [place] [id number] [place] [address] Jun, [facility], [place] [id number] [place] [address] Jun, [facility], [place] [id number] [place] [address] May, [facility], [place] [address] [id number] [address] May, [facility], [place] [address] [address] Apr, [facility], [place] [address] [address] Apr, [facility], [place] [id number] [place] [address] Apr, [facility], [place] [id number] [address] March, [facility], [place] [id number] [address] March, [facility], [place] [address] [facility] [id number] [place] [address] March, [facility], [place] [address] [id number] [place] [address] March, [facility] [address] [id number] [place] [address] March, Sialadenitis 527.2 [facility], [place] [address] [id number] [place] [address] Feb, [facility], [place] [address] [id number] [place] [address] Feb, [facility], [place] [address] [id number] [place] [address] Feb, [facility], [place] [address] [facility] [id number] [place] [address] Feb, [facility], [place] [address] [facility] [id number] [place] [address] Feb, [facility], [place] [address] [facility] [id number] [place] [address] Jan, [facility], [place] [address] [facility] [id number] [place] [address] Jan, [facility], [place] [address] [facility] [id number] [place] [address] Jan, [facility], [place] [address] [id number] [place] [address] Jan, [facility], [place] [address] [id number] [place] [address] Jan, [facility], [place] [address] [facility] [id number] [place] [address] Jan, [facility], [place] [address] [id number] [place] [address] Dec, [facility], [place] [address] [id number] [place] [address] Dec, [facility] [place] [facility] [address] [id number] [place] [address] Dec, [facility] [place] [facility] [address] [id number] [place] [address] Dec, 2014 [facility] [place] [facility] [address] [id number] [place] [address] Dec, [facility] [place] [facility] [address] [id number] [place] [address] Dec, [facility] [place] [facility] [address] [id number] [place] [address] Nov, [facility] [place] [facility] [address] [id number] [place] [address] Nov, [facility] [place] [facility] [address] [id number] [place] [address] Nov, [facility] [place] [facility] [address] [id number] [place] [address] Nov, [facility] [place] [facility] [address] [id number] [place] [address] Nov, [facility] [place] [facility] [address] [id number] [place] [address] Nov, [facility] [place] [facility] [address] [id number] [place] [address] Nov, [facility] [place] [facility] [address] [id number] [place] [address] Nov, [facility] [place] [facility] [address] [id number] [place] [address] Nov, [facility] [place] [facility] [address] [id number] [place] [address] Nov, [facility] [place] [facility] [address] [id number] [place] [address] Nov, [facility] [place] [facility] [address] [id number] [place] [address] Nov, [facility] [place] [facility] [address] [id number] [place] [address] Nov, [facility] [place] [facility] [address] [id number] [place] [address] Nov, [facility] [place] [facility] [address] [id number] [place] [address] Oct, [facility] [place] [facility] [address] [id number] [place] [address] Oct, [facility] [place] [facility] [address] [id number] [place] [address] Oct, [facility] [place] [facility] [address] [id number] [place] [address] Oct, [facility] [place] [facility] [address] [id number] [place] [address] Oct, [facility] [place] [facility] [address] [id number] [place] [address] Oct, [facility] [place] [facility] [address] [id number] [place] [address] Oct, [facility] [place] [facility] [address] [id number] [place] [address] Oct, [facility] [place] [facility] [address] [id number] [place] [address] Oct, [facility] [place] [facility] [address] [id number] [place] [address] Sep, [facility] [place] [facility] [address] [id number] [place] [address] Sep, [facility] [place] [facility] [address] [address] [id number] [place] [address] Sep, [facility] [place] [facility] [address] [id number] [place] [address] Sep, [facility] [place] [facility] [address] [id number] [place] [address] Sep, [facility] [place] [facility] [address] [id number] [place] [address] Sep, [facility] [place] [facility] [address] [id number] [place] [address] Sep, [facility] [place] [facility] [address] [id number] [place] [address] Sep, [facility] [place] [facility] [address] [id number] [place] [address] Sep, [facility] [place] [facility] [address] [id number] [place] [address] Sep, [facility] [place] [facility] [address] [id number] [place] [address] Sep, [facility] [place] [facility] [address] [id number] [place] [address] Sep, [facility] [place] [facility] [address] [id number] [place] [address] Aug, [facility] [place] [facility] [address] [id number] [place] [address] Aug, [facility] [place] [facility] [address] [id number] [place] [address] Aug, [facility] [place] [facility] [address] [id number] [place] [address] 29 Aug, 2014 [facility] [place] [facility] [address] [id number] [place] [address] Aug, [facility] [place] [facility] [address] [id number] [place] [address] Aug, [facility] [place] [facility] [address] [id number] [place] [address] Aug, [facility] [place] [facility] [address] [id number] [place] [address] 17 Aug, 2014 [facility] [place] [facility] [address] [id number] [place] [address] 30 Jul, 2013 [facility] [place] [facility] [address] [id number] [place] [address] 30 Jul, 2013 [facility] [place] [facility] [address] [id number] [place] [address] 30 Jul, 2013 [facility] [place] [facility] [address] [id number] [place] [address] 30 Jul, 2013 [facility] [place] [facility] [address] [id number] [place] [address] 25 Jul, 2013 [facility] [place] [facility] [address] [id number] [place] [address] 25 Jul, 2013 [facility] [place] [facility] [address] [id number] [place] [address] 15 Jul, 2013 [facility] [place] [facility] [address] [id number] [place] [address] 15 Jul, 2014 [facility] [place] [facility] [address] [id number] [place] [address] 11 Jul, 2014 [facility] [place] [facility] [address] [id number] [place] [address] Jul, [facility] [place] [facility] [address] [id number] [place] [address] Jun, [facility] [place] [facility] [address] [id number] [place] [address] Jun, [facility] [place] [facility] [address] [id number] [place] [address] Jun, [facility] [place] [facility] [address] [id number] [place] [address] Jun, [facility] [place] [facility] [address] [id number] [place] [address] Jun, [facility] [place] [facility] [address] [id number] [place] [address] Jun, [facility] [place] [facility] [address] [id number] [place] [address] Jun, [facility] [place] [facility] [address] [id number] [place] [address] Jun, [facility] [place] [facility] [address] [id number] [place] [address] Jun, [facility] [place] [facility] [address] [id number] [place] [address] Jun, [facility] [place] [facility] [address] [id number] [place] [address] Jun, [facility] [place] [facility] [address] [id number] [place] [address] Jun, [facility] [place] [facility] [address] [id number] [place] [address] Jun, [facility] [place] [facility] [address] [id number] [place] [address] Jun, [facility] [place] [facility] [address] [id number] [place] [address] Jun, [facility] [place] [facility] [address] [id number] [place] [address] Jun, [facility] [place] [facility] [address] [id number] [place] [address] Jun, [facility] [place] [facility] [address] [id number] [place] [address] Jun, [facility] [place] [facility] [address] [id number] [place] [address] Jun, [facility] [place] [facility] [address] [id number] [place] [address] Jun, [facility] [place] [facility] [address] [id number] [place] [address] Jun, [facility] [place] [facility] [address] [id number] [place] [address] Jun, [facility] [place] [facility] [address] [id number] [place] [address] May, [facility] [place] [facility] [address] [id number] [place] [address] May, [facility] [place] [facility] [address] [id number] [place] [address] May, [facility] [place] [facility] [address] [id number] [place] [address] May, [facility] [place] [facility] [address] [id number] [place] [address] May, [facility] [place] [facility] [address] [id number] [place] [address] May, [facility] [place] [facility] [address] [id number] [place] [address] May, [facility] [place] [facility] [address] [id number] [place] [address] May, [facility] [place] [facility] [address] [id number] [place] [address] May, [facility] [place] [facility] [address] [id number] [place] [address] May, [facility] [place] [facility] [address] [id number] [place] [address] May, [facility] [place] [facility] [address] [id number] [place] [address] May, [facility] [place] [facility] [address] [id number] [place] [address] May, [facility] [place] [facility] [address] [id number] [place] [address] Apr, [facility] [place] [facility] [address] [id number] [place] [address] Apr, [facility] [place] [facility] [address] [id number] [place] [address] Apr, [facility] [place] [facility] [address] [id number] [place] [address] Apr, [facility] [place] [facility] [address] [id number] [place] [address] Apr, [facility] [place] [facility] [address] [id number] [place] [address] Apr, [facility] [place] [facility] [address] [id number] [place] [address] Apr, [facility] [place] [facility] [address] [id number] [place] [address] Apr, [facility] [place] [facility] [address] [id number] [place] [address] Apr, [facility] [place] [facility] [address] [id number] [place] [address] March, [facility] [place] [facility] [address] [id number] [place] [address] March, [facility] [place] [facility] [address] [id number] [place] [address] March, [facility] [place] [facility] [address] [id number] [place] [address] March, [facility] [place] [facility] [address] [id number] [place] [address] March, [facility] [place] [facility] [address] [id number] [place] [address] March, [facility] [place] [facility] [address] [id number] [place] [address] March, [facility] [place] [facility] [address] [id number] [place] [address] March, [facility] [address] [id number] [place] [address] March, [facility] [place] [facility] [address] [id number] [place] [address] March, [facility] [place] [facility] [address] [id number] [place] [address] March, [facility] [place] [facility] [address] [id number] [place] [address] March, [facility] [place] [facility] [address] [id number] [place] [address] March, [facility] [place] [facility] [address] [id number] [place] [address] March, [facility] [place] [facility] [address] [id number] [place] [address] March, [facility] [place] [facility] [address] [id number] [place] [address] March, [facility] [place] [facility] [address] [id number] [place] [address] March, [facility] [place] [facility] [address] [id number] [place] [address] March, [facility] [place] [facility] [address] [id number] [place] [address] March, [facility] [place] [facility] [address] [id number] [place] [address] March, [facility] [place] [facility] [address] [id number] [place] [address] Feb, [facility] [place] [facility] [address] [id number] [place] [address] Feb, [facility] [place] [facility] [address] [id number] [place] [address] Feb, [facility] [place] [facility] [address] [id number] [place] [address] 24 Feb, 2014 [facility] [place] [facility] [address] [id number] [place] [address] Feb, [facility] [place] [facility] [address] [id number] [place] [address] Feb, [facility] [place] [facility] [address] [id number] [place] [address] Feb, [facility] [place] [facility] [address] [id number] [place] [address] Feb, [facility] [place] [facility] [address] [id number] [place] [address] Jan, [facility] [place] [facility] [address] [id number] [place] [address] Jan, [facility] [place] [facility] [address] [id number] [place] [address] Jan, [facility] [place] [facility] [address] [id number] [place] [address] Jan, [facility] [place] [facility] [address] [id number] [place] [address] Jan, [facility] [place] [facility] [address] [id number] [place] [address] Jan, [facility] [place] [facility] [address] [id number] [place] [address] Jan, [facility] [place] [facility] [address] [id number] [place] [address] Jan, [facility] [place] [facility] [address] [id number] [place] [address] Jan, [facility] [place] [facility] [address] [id number] [place] [address] Jan, [facility] [place] [facility] [address] [id number] [place] [address] Dec, [facility] [place] [facility] [address] [id number] [place] [address] Dec, [facility] [place] [facility] [address] [id number] [place] [address] Dec, [facility] [place] [facility] [address] [id number] [place] [address] Dec, [facility] [place] [facility] [address] [id number] [place] [address] Dec, [facility] [place] [facility] [address] [id number] [place] [address] Dec, [facility] [place] [facility] [address] [id number] [place] [address] Dec, [facility] [place] [facility] [address] [id number] [place] [address] Dec, [facility] [place] [facility] [address] [id number] [place] [address] Nov, [facility] [place] [facility] [address] [id number] [place] [address] Nov, [facility] [place] [facility] [address] [id number] [place] [address] Nov, [facility] [place] [facility] [address] [id number] [place] [address] Nov, [facility] [place] [facility] [address] [id number] [place] [address] Nov, [facility] [place] [facility] [address] [id number] [place] [address] Nov, [facility] [place] [facility] [address] [id number] [place] [address] Nov, [facility] [place] [facility] [address] [id number] [place] [address] Nov, [facility] [place] [facility] [address] [id number] [place] [address] Nov, [facility] [address] [id number] [place] [address] Nov, [facility] [place] [facility] [address] [id number] [place] [address] Nov, [facility] [address] [id number] [place] [address] Nov, [facility] [place] [facility] [address] [id number] [place] [address] Nov, [facility] [address] [id number] [place] [address] Oct, [facility] [place] [facility] [address] [id number] [place] [address] 30 Oct, 2013 [facility] [address] [id number] [place] [address] Oct, [facility] [place] [facility] [address] [id number] [place] [address] Oct, [facility] [address] [id number] [place] [address] Oct, [facility] [place] [facility] [address] [facility] [id number] [place] [address] Oct, [facility] [place] [facility] [address] [id number] [place] [address] 18 Oct, 2013 [facility] [place] [facility] [address] [id number] [place] [address] 18 Oct, 2013 [facility] [place] [facility] [address] [id number] [place] [address] 17 Oct, 2013 [facility] [place] [facility] [address] [id number] [place] [address] 17 Oct, 2013 [facility] [place] [facility] [address] [facility] [id number] [place] [address] Oct, [facility] [place] [facility] [address] [id number] [place] [address] Oct, [facility] [place] [facility] [address] [id number] [place] [address] Oct, [facility] [place] [facility] [address] [id number] [place] [address] Oct, [facility] [place] [facility] [address] [id number] [place] [address] Sep, [facility] [place] [facility] [address] [id number] [place] [address] Sep, [facility] [place] [facility] [address] [id number] [place] [address] Sep, [facility] [place] [facility] [address] [id number] [place] [address] Sep, [facility] [place] [facility] [address] [id number] [place] [address] Sep, [facility] [place] [facility] [address] [id number] [place] [address] Sep, [facility] [place] [facility] [address] [id number] [place] [address] Sep, [facility] [place] [facility] [address] [id number] [place] [address] Sep, [facility] [place] [facility] [address] [id number] [place] [address] Sep, [facility] [place] [facility] [address] [id number] [place] [address] Sep, [facility] [place] [facility] [address] [id number] [place] [address] Aug, [facility] [place] [facility] [address] [id number] [place] [address] Aug, [facility] [place] [facility] [address] [id number] [place] [address] 24 Aug, 2013 [facility] [place] [facility] [address] [id number] [place] [address] 24 Aug, 2013 [facility] [place] [facility] [address] [id number] [place] [address] Aug, 2012 [facility] [place] [facility] [address] [id number] [place] [address] Aug, [facility] [place] [facility] [address] [id number] [place] [address] Aug, 2012 [facility] [place] [facility] [address] [id number] [place] [address] Aug, [facility] [place] [facility] [address] [id number] [place] [address] Aug, [facility] [place] [facility] [address] [id number] [place] [address] Aug, [facility] [place] [facility] [address] [id number] [place] [address] 18 Aug, 2013 [facility] [place] [facility] [address] [id number] [place] [address] 18 Aug, 2013 [facility] [place] [facility] [address] [id number] [place] [address] 18 Aug, 2013 [facility] [place] [facility] [address] [id number] [place] [address] 18 Aug, 2013 [facility] [place] [facility] [address] [id number] [place] [address] 17 Aug, 2012 [facility] [place] [facility] [address] [id number] [place] [address] 14 Aug, 2013 [facility] [place] [facility] [address] [id number] [place] [address] 14 Aug, 2013 [facility] [place] [facility] [address] [id number] [place] [address] Aug, [facility] [place] [facility] [address] [id number] [place] [address] 20 Jul, 2012 [facility] [address] [id number] [place] [address] 19 Jul, 2013 [facility] [address] [id number] [place] [address] 18 Jul, 2013 [facility] [address] [id number] [place] [address] 11 Jul, 2013 [facility] [address] [id number] [place] [address] 11 Jul, 2013 [facility] [address] [id number] [place] [address] 28 Jun, 2013 [facility] [address] [id number] [place] [address] Jun, [facility] [address] [id number] [place] [address] Jun, [facility] [address] [id number] [place] [address] 15 Jun, 2013 [facility] [address] [id number] [place] [address] 14 Jun, 2013 [facility] [address] [id number] [place] [address] Jun, [facility] [place] [facility] [address] [id number] [place] [address] Jun, [facility] [place] [facility] [address] [id number] [place] [address] Jun, [facility] [place] [facility] [address] [id number] [place] [address] Jun, [facility] [place] [facility] [address] [id number] [place] [address] Jun, [facility] [place] [facility] [address] [id number] [place] [address] May, [facility] [place] [facility] [address] [id number] [place] [address] May, [facility] [place] [facility] [address] [id number] [place] [address] May, [facility] [place] [facility] [address] [id number] [place] [address] May, [facility] [place] [facility] [address] [id number] [place] [address] May, [facility] [place] [facility] [address] [id number] [place] [address] 16 May, 2013 [facility] [place] [facility] [address] [id number] [place] [address] May, [facility] [place] [facility] [address] [id number] [place] [address] May, [facility] [place] [facility] [address] [id number] [place] [address] May, [facility] [place] [facility] [address] [id number] [place] [address] Apr, [facility] [place] [facility] [address] [id number] [place] [address] Apr, [facility] [place] [facility] [address] [id number] [place] [address] Apr, [facility] [place] [facility] [address] [id number] [place] [address] Apr, [facility] [place] [facility] [address] [id number] [place] [address] Apr, [facility] [place] [facility] [address] [id number] [place] [address] Apr, [facility] [place] [facility] [address] [id number] [place] [address] Apr, [facility] [place] [facility] [address] [id number] [place] [address] March, [facility] [address] [id number] [place] [address] Feb, [facility] [address] [id number] [place] [address] Feb, [facility] [address] [id number] [place] [address] Feb, [facility] [address] [id number] [place] [address] Jan, [facility] [address] [id number] [place] [address] Jan, [facility] [address] [id number] [place] [address] Jan, [facility] [address] [facility] [id number] [place] [address] Jan, [facility] [address] [id number] [place] [address] Jan, [facility] [address] [id number] [place] [address] Jan, [facility] [address] [facility] [id number] [place] [address] Jan, [facility] [address] [id number] [place] [address] Jan, [facility] [address] [id number] [place] [address] Dec, [facility] [place] [facility] [address] [id number] [place] [address] Dec, [facility] [place] [facility] [address] [id number] [place] [address] Dec, [facility] [address] [facility] [id number] [place] [address] Dec, [facility] [address] [id number] [place] [address] 07 Dec, 2012 [facility] [address] [id number] [place] [address] 06 Dec, 2012 [facility] [address] [id number] [place] [address] 05 Dec, 2012 [facility] [address] [id number] [place] [address] Nov, [facility] [address] [id number] [place] [address] 24 Nov, 2012 [facility] [address] [id number] [place] [address] Nov, [facility] [address] [id number] [place] [address] Nov, [facility] [address] [id number] [place] [address] Nov, [facility] [address] [id number] [place] [address] Nov, [facility] [address] [id number] [place] [address] Nov, [facility] [address] [id number] [place] [address] Oct, [facility] [address] [id number] [place] [address] Oct, [facility] [place] [facility] [address] [id number] [place] [address] Oct, [facility] [place] [facility] [address] [id number] [place] [address] Oct, [facility] [address] [id number] [place] [address] 17 Oct, 2012 [facility] [address] [id number] [place] [address] Oct, [facility] [place] [facility] [address] [id number] [place] [address] Oct, [facility] [place] [facility] [address] [id number] [place] [address] Oct, [facility] [place] [facility] [address] [id number] [place] [address] Oct, [facility] [place] [facility] [address] [id number] [place] [address] Oct, [facility] [place] [facility] [address] [id number] [place] [address] Oct, [facility] [place] [facility] [address] [id number] [place] [address] Oct, [facility] [place] [facility] [address] [id number] [place] [address] Sep, [facility] [place] [facility] [address] [id number] [place] [address] Sep, [facility] [place] [facility] [address] [id number] [place] [address] Sep, [facility] [place] [facility] [address] [id number] [place] [address] Sep, [facility] [place] [facility] [address] [id number] [place] [address] Sep, [facility] [place] [facility] [address] [id number] [place] [address] Sep, [facility] [place] [facility] [address] [id number] [place] [address] Sep, [facility] [place] [facility] [address] [id number] [place] [address] Sep, [facility] [place] [facility] [address] [id number] [place] [address] Sep, [facility] [place] [facility] [address] [id number] [place] [address] Sep, [facility] [place] [facility] [address] [id number] [place] [address] Sep, [facility] [place] [facility] [address] [id number] [place] [address] Aug, [facility] [place] [facility] [address] [id number] [place] [address] Aug, [facility] [place] [facility] [address] [id number] [place] [address] Aug, [facility] [place] [facility] [address] [id number] [place] [address] Aug, [facility] [place] [facility] [address] [id number] [place] [address] Aug, [facility] [place] [facility] [address] [id number] [place] [address] Aug, [facility] [place] [facility] [address] [id number] [place] [address] Aug, [facility] [place] [facility] [address] [id number] [place] [address] Aug, [facility] [place] [facility] [address] [id number] [place] [address] Aug, [facility] [place] [facility] [address] [id number] [place] [address] Aug, [facility] [place] [facility] [address] [id number] [place] [address] 22 Jul, 2012 [facility] [place] [facility] [address] [id number] [place] [address] 20 Jul, 2012 [facility] [place] [facility] [address] [id number] [place] [address] 10 Jul, 2012 [facility] [place] [facility] [address] [id number] [place] [address] Jul, [facility] [place] [facility] [address] [id number] [place] [address] Jun, [facility] [place] [facility] [address] [id number] [place] [address] Jun, [facility] [place] [facility] [address] [id number] [place] [address] Jun, [facility] [place] [facility] [address] [id number] [place] [address] Jun, [facility] [place] [facility] [address] [id number] [place] [address] Jun, [facility] [place] [facility] [address] [id number] [place] [address] Jun, [facility] [place] [facility] [address] [address] [id number] [place] [address] Jun, [facility] [place] [facility] [address] [id number] [place] [address] May, [facility] [place] [facility] [address] [id number] [place] [address] May, [facility] [place] [facility] [address] [id number] [place] [address] May, [facility] [place] [facility] [address] [id number] [place] [address] May, [facility] [place] [facility] [address] [id number] [place] [address] May, [facility] [place] [facility] [address] [id number] [place] [address] Apr, [facility] [place] [facility] [address] [id number] [place] [address] Apr, [facility] [place] [facility] [address] [id number] [place] [address] Apr, [facility] [place] [facility] [address] [id number] [place] [address] Apr, [facility] [address] [id number] [place] [address] Apr, [facility] [address] [id number] [place] [address] March, [facility] [address] [id number] [place] [address] March, [facility] [address] [id number] [place] [address] March, [facility] [address] [id number] [place] [address] March, [facility] [address] [id number] [place] [address] March, [facility] [address] [id number] [place] [address] March, [facility] [address] [id number] [place] [address] March, [facility] [address] [id number] [place] [address] March, [facility] [address] [id number] [place] [address] March, [facility] [address] [id number] [place] [address] March, [facility] [place] [facility] [address] [id number] [place] [address] Feb, [facility] [place] [facility] [address] [id number] [place] [address] Feb, [facility] [place] [facility] [address] [id number] [place] [address] Feb, [facility] [address] [id number] [place] [address] Feb, [facility] [address] [id number] [place] [address] 17 Feb, 2012 [facility] [place] [facility] [address] [id number] [place] [address] Feb, [facility] [place] [facility] [address] [id number] [place] [address] Feb, [facility] [place] [facility] [address] [id number] [place] [address] Feb, [facility] [place] [facility] [address] [id number] [place] [address] Feb, [facility] [place] [facility] [address] [id number] [place] [address] Jan, [facility] [place] [facility] [address] [id number] [place] [address] Jan, [facility] [place] [facility] [address] [id number] [place] [address] Jan, [facility] [place] [facility] [address] [id number] [place] [address] Jan, [facility] [place] [facility] [address] [id number] [place] [address] Dec, [facility] [place] [facility] [address] [id number] [place] [address] Dec, [facility] [place] [facility] [address] [id number] [place] [address] Nov, [facility] [place] [facility] [address] [id number] [place] [address] Nov, [facility] [place] [facility] [address] [id number] [place] [address] Nov, [facility] [place] [facility] [address] [id number] [place] [address] 16 Nov, 2011 [facility] [place] [facility] [address] [id number] [place] [address] Nov, [facility] [place] [address] [facility] [id number] [place] [address] Oct, [facility] [place] [address] [facility] [id number] [place] [address] Oct, [facility] [place] [address] [facility] [id number] [place] [address] Oct, [facility] [place] [address] [facility] [id number] [place] [address] Oct, [facility] [place] [address] [facility] [id number] [place] [address] Oct, [facility] [place] [id number] [place] [address] Oct, [facility] [place] [id number] [place] [address] Oct, [facility] [place] [id number] [address] Oct, [facility] [place] [address] [id number] [address] Sep, IMMUNIZATIONS No Known Immunizations SOCIAL HISTORY Never Assessed REASON FOR VISIT assisted Med Change PLAN OF CARE VITAL SIGNS MEDICATIONS Medication Instructions Dosage Frequency Start Date End Date Duration Status Myrbetriq 25 MG Orally Once a day 1 tablet 24h Oct, 30 days Active RESULTS No Results PROCEDURES No Known procedures INSTRUCTIONS MEDICATIONS ADMINISTERED No Known Medications MEDICAL (GENERAL) HISTORY Type Description Date 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
--- OUTSIDE RECORDS SUMMARY | 2019-04-16 15:46 | XMS REPORT ---
Author Author SHAHNAZ MARQUEZ [facility] Address [address] [place] [address] Care Team Providers Care Acid Changer Name Role Phone SHAHNAZ MARQUEZ Unavailable PROBLEMS Type Condition ICD9-CM Code EHA95-RP Code Onset Dates Condition Status SNOMED Code Problem Reactive depression F32.9 Active 05287932 Problem Anxiety F41.9 Active 11099059 Problem Pharyngeal dysphagia R13.13 Active 96749319835892 Problem Suprapubic catheter Z93.59 Active 639275401 Problem Encounter for suprapubic catheter care Z43.5 Active 729566920 Problem Insomnia G47.00 Active 184234948 Problem Peripheral vascular disease I73.9 Active 374405600 Problem 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 Active 17788332 Problem Paroxysmal atrial fibrillation I48.0 Active 624745060 Problem Hypertension I10 Active 95504603 Problem Other chronic pain G89.29 Active 59266627 Problem Low back pain M54.5 Active 534172064 Problem Coronary artery disease I25.10 Active 61142536 Problem Type 2 diabetes mellitus without complication, without long-term current use of insulin E11.9 Active 998508927 Problem Hyperlipidemia E78.5 Active 99073643 Problem Ventral hernia without obstruction or gangrene K43.9 Active 292464430 ALLERGIES No Information ENCOUNTERS Encounter Location Date Diagnosis [facility] [address] [facility] [id number], [place] [address] Oct, Via [facility] [address] [facility] [place] [id number] Oct, [facility] [address] [facility] [id number], [place] [address] Oct, Anxiety F41.9 [facility] [address] [facility] [id number], [place] [address] Oct, Anxiety F41.9 Via [facility] [address] [place] [id number] Oct, Other chronic pain G89.29 [facility] [address] [id number], [place] [address] Sep, Other chronic pain G89.29 Via [facility] [address] [place] [id number] Sep, Suprapubic catheter Z93.59 and Cervicalgia M54.2 [facility] [address] [id number], [place] [address] Sep, [facility] [id number] [place] [address] Sep, [facility] [address] [id number] [place] [address] Sep, Via [employer] [employer] [facility] [address] [place] [id number] Aug, Cystitis N30.90 [facility] [address] [id number], [place] [address] Aug, [facility] [address] [id number] [place] [address] Aug, Other chronic pain G89.29 [facility] [address] [id number] [place] [address] Aug, Via [employer] [address] [place] [id number] Aug, Encounter for suprapubic catheter care Z43.5 [facility] [address] [id number], [place] [address] Jul, Via [employer] [address] [place] [id number] Jul, [facility] [address] [id number], [place] [address] Jul, Other chronic pain G89.29 [facility] [address] [id number], [place] [address] Jul, [facility] [address] [facility] [id number], [place] [address] 10 Jul, 2018 Via [facility] [address] [place] [id number] Jun, 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 [facility] [address] [facility] [id number], [place] [address] Jun, Other chronic pain G89.29 [place] [address] [facility] [id number], [place] [address] Jun, Via [facility] [address] [place] [id number] May, Anxiety F41.9 ; Type 2 diabetes mellitus without complication, without long-term current use of insulin E11.9 ; Hypertension I10 ; Low back pain M54.5 ; Paroxysmal atrial fibrillation I48.0 and 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 [place] [address] [facility] [id number], [place] [address] May, Other chronic pain G89.29 [facility] [address] [place] [id number] May, Low back pain M54.5 [place] [address] [facility] [id number], [place] [address] May, [place] [address] [facility] [id number], [place] [address] Apr, Other chronic pain G89.29 [place] [address] [facility] [id number], [place] [address] Apr, [place] [address] [facility] [id number], [place] [address] Apr, Via [facility] [address] [place] [id number] Apr, Closed compression fracture of L3 lumbar vertebra with routine healing, subsequent encounter S32.030D [facility] [address] [place] [id number] Apr, Low back pain M54.5 [facility] [address] [place] [id number] Apr, Coccydynia M53.3 [facility] [address]00565100[place], [place] [address] March, [facility] [address] [facility] [id number], [place] [address] March, Other chronic pain G89.29 [facility] [address] [facility] [id number], [place] [address] March, [facility] [address] [facility] [id number] [place] [address] March, [facility] [address] [place] [id number] [place] [address] Feb, [facility] [address] [place] [id number] [place] [address] Feb, Other chronic pain G89.29 [facility] [employer] [facility] [address] [place] [id number] Feb, Other chronic pain G89.29 and Anxiety F41.9 [facility] [address]00565100[place], [place] [address] Feb, [facility] [address] [id number], [place] [address] Jan, [facility] [address]00565100[place], [place] [address] Jan, [facility] [address] [facility] [id number], [place] [address] Jan, [facility] [address]00565100[place], [place] [address] Jan, [facility] [address] [facility] [id number], [place] [address] Dec, Via [employer] [address] [place] [id number] Dec, Peripheral vascular disease I73.9 ; 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 [address] [id number] [place] [address] Nov, [facility] [id number] [place] [id number] Nov, Anxiety F41.9 [facility] [address] [facility] [id number], [place] [address] Nov, [facility] [address] [place] [id number] [place] [id number] Nov, Anxiety F41.9 [facility] [address] [place] [address] Nov, Status post surgery Z98.890 ; Confused R41.0 ; Anxiety F41.9 and Other chronic pain G89.29 [facility] [address] [id number] [address] Nov, Other chronic pain G89.29 [facility] [address] [place] [id number], [place] [address] Oct, [facility] [id number] [place] [id number] Oct, Other chronic pain G89.29 [facility] [address] [id number], [place] [address] Oct, Anxiety F41.9 [facility] [address] [id number][place] [address] Sep, Other chronic pain G89.29 [facility] [id number], [place] [address] Sep, [facility] [address] [place] [id number] Aug, Dysuria R30.0 and Anxiety F41.9 [facility] [address]00565100[place], [place] [address] Aug, [facility] [address] [id number] [place] [id number] Aug, Other chronic pain G89.29 [facility] [address]00565100[place], [place] [address] Jul, Other chronic pain G89.29 [facility] [address] [id number] [place] [id number] Jun, [facility] [address] [id number] [place] [id number] Jun, Other chronic pain G89.29 [facility] [address] [place] [address] Jun, [facility] [address] [place] [address] May, Other chronic pain G89.29 [facility] [address]00565100[place], [place] [address] Apr, Other chronic pain G89.29 [facility] [address] [place] [id number] Apr, Reactive depression F32.9 and Pharyngeal dysphagia R13.13 [facility] [address]00565100[place], [place] [address] Apr, Urinary tract infection without hematuria, site unspecified N39.0 [facility] [address]00565100[place], [place] [address] March, Other chronic pain G89.29 [facility] [address]00565100[place], [place] [address] Feb, Other chronic pain G89.29 [facility] [address]00565100[place], [place] [address] Feb, [facility] [address] [id number] [place] [id number] Feb, [facility] [address] [place] [id number] Feb, Dysuria R30.0 and Ventral hernia without obstruction or gangrene K43.9 [facility] [address] [place] [address] Jan, Other chronic pain G89.29 [facility] [address] [id number] [place] [id number] Dec, Other chronic pain G89.29 [facility] [address] [place] [address] Nov, Other chronic pain G89.29 [facility] [address] [place] [id number] Nov, Lymphadenitis I88.9 [facility] [address] [place] [address] [id number] [place] [address] Nov, Other chronic pain G89.29 [facility] [address] [place] [address] Nov, [facility] [address] [place] [address] [id number] [place] [id number] Nov, Other chronic pain G89.29 [facility] [employer] [facility] [address] [place] [address] Oct, Low back pain M54.5 ; Hypertension I10 and Type 2 diabetes mellitus without complication, without long-term current use of insulin E11.9 [facility] [address]00565100[place], [place] [address] Oct, [facility] [address] [place] [address] Oct, [facility] [address] [place] [address] [id number] [place] [address] Oct, [facility] [address] [place] [address] Oct, [facility] [address] [place] [address] [id number], [place] [address] Sep, [facility] [address] [facility] [id number], [place] [address] Sep, [facility] [address]00565100[place], [place] [address] Aug, Other chronic pain G89.29 [facility] [address]00565100[place], [place] [address] Jul, [facility] [address] [facility] [id number] [place] [address] Jul, [facility] [address] [place] [address] [id number] [place] [address] Jul, [facility] [address] [place] [address] Jun, [facility] [address] [place] [id number] [place] [address] Jun, [facility] [address] [facility] [place] [address] Jun, Low back pain M54.5 ; Other chronic pain G89.29 and Coronary artery disease I25.10 [facility] [address]00565100[place], [place] [address] Jun, [facility] [address]00565100[place], [place] [address] May, [facility] [address]00565100[place], [place] [address] May, [facility] [address]00565100[place], [place] [address] May, Other chronic pain G89.29 [facility] [address]00565100[place], [place] [address] May, [facility] [address]00565100[place], [place] [address] Apr, [facility] [address]65100[place], [place] [address] 17 Apr, 2016 Acute cystitis without hematuria N30.00 [facility] [address] [place] [address] [id number] [place] [address] 16 Apr, 2016 Acute cystitis without hematuria N30.00 ; Coronary artery disease I25.10 ; Low back pain M54.5 and Other chronic pain G89.29 [facility] [address] [place] [address] [id number] [place] [address] 13 Apr, 2016 Other chronic pain G89.29 [facility] [address] [place] [address] [id number] [place] [address] March, Other chronic pain G89.29 [facility] [address] [place] [address] [id number] [place] [address] 18 Feb, 2016 [facility] [address] [place] [id number] [place] [address] 15 Feb, 2016 Arthritis M19.90 [facility] [address] [place] [address] [id number] [place] [address] Feb, [facility] [address] [place] [address] [id number] [place] [address] 30 Jan, 2016 [facility] [address]00565100[place], [place] [address] Jan, [facility] [address] [place] [id number] [place] [address] Jan, Other chronic pain G89.29 [facility] [address]00565100[place], [place] [address] 17 Jan, 2016 Hypertension I10 ; Coronary artery disease I25.10 and Insomnia G47.00 [facility] [address]00565100[place], [place] [address] Jan, [facility] [address]00565100[place], [place] [address] Dec, Right hip pain M25.551 [facility] [address] [facility] [id number], [place] [address] Dec, [facility] [address] [facility] [id number], [place] [address] Dec, [facility] [address]00565100[place], [place] [address] Dec, [facility] [address] [facility] [id number] [place] [address] Dec, Other chronic pain G89.29 [facility] [address] [facility] [id number] [place] [address] Dec, [facility] [address] [place] [id number] [place] [address] Nov, [facility] [address] [place] [id number] [place] [address] Nov, Other chronic pain G89.29 [facility] [address] [facility] [id number], [place] [address] Nov, Right hip pain M25.551 and Coronary artery disease I25.10 [facility] [address]00565100[place], [place] [address] Nov, Other chronic pain G89.29 [facility] [address]00565100[place], [place] [address] Oct, [facility] [address]00565100[place], [place] [address] Oct, [facility] [address]00565100[place], [place] [address] Sep, [facility] [address]00565100[place], [place] [address] Sep, [facility] [address]00565100[place], [place] [address] Aug, [facility] [address] [id number] [place] [address] Aug, Hypertension I10 ; Coronary artery disease I25.10 and Arthritis M19.90 [facility] [address] [facility] [id number], [place] [address] Jun, [facility] [address] [place] [address] [id number] [address] Jun, Essential hypertension, benign 401.1 ; Other chronic pain 338.29 and Chronic airway obstruction, not elsewhere classified 496 [facility] [address] [id number] [place] [address] Jun, [facility] [address] [facility] [id number], [place] [address] Jun, [facility] [address] [id number] [address] Jun, [facility] [address] [id number], [place] [address] May, [facility] [address] [facility] [id number] [place] [address] May, [facility] [address] [id number], [place] [address] Apr, [facility] [address] [id number], [place] [address] Apr, [facility] [address] [facility] [id number], [place] [address] Apr, [facility] [address] [facility] [id number] [place] [address] March, [facility] [address] [facility] [id number] [place] [address] March, [facility] [address] [id number], [place] [address] March, [facility] [address] [id number] [address] March, [facility] [address] [id number] [place] [address] March, Sialadenitis 527.2 [facility] [address] [id number] [place] [address] Feb, [facility] [address] [id number] [place] [address] Feb, [facility] [address] [id number] [place] [address] Feb, [facility] [address] [id number] [place] [address] Feb, [facility] [address] [id number] [place] [address] Feb, [facility] [address] [id number] [place] [address] Jan, [facility] [address] [id number] [place] [address] Jan, [facility] [address] [id number] [place] [address] Jan, [facility] [address] [id number] [place] [address] Jan, [facility] [address] [id number] [place] [address] Jan, [facility] [address] [id number] [place] [address] Jan, [facility] [address] [id number] [place] [address] Dec, [facility] [address] [id number] [place] [address] Dec, [facility] [address] [id number] [place] [address] Dec, [facility] [place] [facility] [address] [id number] [place] [address] Dec, [facility] [place] [facility] [address] [id number] [place] [address] Dec, [facility] [place] [facility] [address] [id number] [place] [address] Dec, [facility] [place] [facility] [address] [id number] [place] [address] Nov, [facility] [place] [facility] [address] [id number] [place] [address] Nov, [facility] [place] [facility] [address] [id number] [place] [address] Nov, [facility] [place] [facility] [address] [id number] [place] [address] Nov, [facility] [place] [facility] [address] [id number] [place] [address] Nov, [facility] [place] [facility] [address] [id number] [place] [address] Nov, [facility] [place] [facility] [address] [id number] [place] [address] Nov, [facility] [place] [facility] [address] [id number], [place] [address] Nov, [facility] [place] [facility] [address] [id number], [place] [address] Nov, [facility] [place] [facility] [address] [id number] [place] [address] Nov, [facility] [place] [facility] [address] [id number], [place] [address] Nov, [facility] [place] [facility] [address] [id number] [place] [address] Nov, [facility] [place] [facility] [address] [id number] [place] [address] Nov, [facility] [place] [facility] [address] [id number] [place] [address] Nov, [facility] [place] [facility] [address] [id number] [place] [address] Oct, [facility] [place] [facility] [address] [id number] [place] [address] Oct, [facility] [place] [facility] [address] [id number] [place] [address] Oct, [facility] [place] [facility] [address] [id number] [place] [address] Oct, [facility] [place] [facility] [address] [id number] [place] [address] Oct, [facility] [place] [facility] [address] [id number] [place] [address] Oct, [facility] [place] [facility] [address] [id number] [place] [address] Oct, [facility] [place] [facility] [address] [id number] [place] [address] Oct, [facility] [place] [facility] [address] [id number] [place] [address] Oct, [facility] [place] [facility] [address] [id number] [place] [address] Sep, [facility] [place] [facility] [address] [id number] [place] [address] Sep, [facility] [place] [facility] [address] [id number] [place] [address] Sep, [facility] [place] [facility] [address] [id number] [place] [address] Sep, [facility] [place] [facility] [address] [id number] [place] [address] Sep, [facility] [place] [facility] [address] [id number] [place] [address] Sep, [facility] [place] [facility] [address] [id number] [place] [address] Sep, [facility] [place] [facility] [address] [id number] [place] [address] Sep, [facility] [place] [facility] [address] [id number] [place] [address] Sep, [facility] [place] [facility] [address] [id number] [place] [address] Sep, [facility] [place] [facility] [address] [id number] [place] [address] Sep, [facility] [place] [facility] [address] [id number] [place] [address] Sep, [facility] [place] [facility] [address] [id number] [place] [address] Aug, [facility] [place] [facility] [address] [id number] [place] [address] Aug, [facility] [place] [facility] [address] [id number] [place] [address] Aug, [facility] [place] [facility] [address] [id number] [place] [address] Aug, [facility] [place] [facility] [address] [id number] [address] Aug, [facility] [place] [facility] [address] [id number] [place] [address] Aug, [facility] [place] [facility] [address] [id number] [place] [address] Aug, [facility] [place] [facility] [address] [id number] [place] [address] Aug, [facility] [place] [facility] [address] [id number], [place] [address] 30 Jul, 2013 [facility] [place] [facility] [address] [id number] [place] [address] 30 Jul, 2013 [facility] [place] [facility] [address] [id number] [place] [address] 30 Jul, 2013 [facility] [place] [facility] [address] [id number] [place] [address] 30 Jul, 2013 [facility] [place] [facility] [address] [id number] [place] [address] 25 Jul, 2013 [facility] [place] [facility] [address] [id number] [place] [address] 25 Jul, 2013 [facility] [place] [facility] [address] [id number] [place] [address] 15 Jul, 2014 [facility] [place] [facility] [address] [id number] [place] [address] 15 Jul, 2014 [facility] [place] [facility] [address] [id number] [place] [address] Jul, [facility] [place] [facility] [address] [id number] [place] [address] Jul, [facility] [place] [facility] [address] [id number] [place] [address] Jun, [facility] [place] [facility] [address] [id number] [place] [address] Jun, [facility] [place] [facility] [address] [id number] [place] [address] Jun, [facility] [place] [facility] [address] [id number] [place] [address] Jun, [facility] [place] [facility] [address] [id number] [place] [address] Jun, [facility] [place] [facility] [address] [id number] [place] [address] Jun, [facility] [place] [facility] [address] [id number] [place] [address] Jun, [facility] [place] [facility] [address] [id number] [place] [address] Jun, [facility] [place] [facility] [address] [address] [id number] [place] [address] Jun, [facility] [place] [facility] [address] [id number] [place] [address] Jun, [facility] [place] [facility] [address] [id number] [place] [address] Jun, [facility] [place] [facility] [address] [id number] [place] [address] Jun, [facility] [place] [facility] [address] [id number] [place] [address] Jun, [facility] [place] [facility] [address] [id number] [place] [address] Jun, [facility] [place] [facility] [address] [id number] [place] [address] Jun, [facility] [place] [facility] [address] [id number] [place] [address] Jun, [facility] [place] [facility] [address] [id number] [place] [address] Jun, [facility] [place] [facility] [address] [id number] [place] [address] Jun, [facility] [place] [facility] [address] [id number] [place] [address] Jun, [facility] [place] [facility] [address] [id number] [place] [address] Jun, [facility] [place] [facility] [address] [id number] [place] [address] Jun, [facility] [place] [facility] [address] [id number] [place] [address] Jun, [facility] [place] [facility] [address] [id number] [place] [address] May, [facility] [place] [facility] [address] [id number] [place] [address] May, [facility] [place] [facility] [address] [id number] [place] [address] May, [facility] [place] [facility] [address] [id number] [place] [address] May, [facility] [place] [facility] [address] [id number] [place] [address] May, [facility] [place] [facility] [address] [id number] [place] [address] May, [facility] [place] [facility] [address] [id number] [place] [address] May, [facility] [place] [facility] [address] [id number] [place] [address] May, [facility] [place] [facility] [address] [id number] [place] [address] May, [facility] [place] [facility] [address] [id number] [place] [address] May, [facility] [place] [facility] [address] [id number] [place] [address] May, [facility] [place] [facility] [address] [id number] [place] [address] May, [facility] [place] [facility] [address] [id number] [place] [address] May, [facility] [place] [facility] [address] [id number] [place] [address] Apr, [facility] [place] [facility] [address] [id number] [place] [address] Apr, [facility] [place] [facility] [address] [id number] [place] [address] Apr, [facility] [place] [facility] [address] [id number] [place] [address] Apr, [facility] [place] [facility] [address] [id number] [place] [address] Apr, [facility] [place] [facility] [address] [id number] [place] [address] Apr, [facility] [place] [facility] [address] [id number] [place] [address] Apr, [facility] [place] [facility] [address] [id number] [place] [address] Apr, [facility] [place] [facility] [address] [id number] [place] [address] Apr, [facility] [place] [facility] [address] [id number] [place] [address] March, [facility] [place] [facility] [address] [id number] [place] [address] March, [facility] [place] [facility] [address] [id number] [place] [address] March, [facility] [place] [facility] [address] [id number] [place] [address] March, [facility] [place] [facility] [address] [id number] [place] [address] March, [facility] [place] [facility] [address] [id number] [place] [address] March, [facility] [place] [facility] [address] [id number] [place] [address] March, [facility] [place] [facility] [address] [id number] [place] [address] March, [facility] [place] [facility] [address] [id number] [place] [address] March, [facility] [place] [facility] [address] [id number] [place] [address] March, [facility] [place] [facility] [address] [id number] [place] [address] March, [facility] [place] [facility] [address] [id number] [place] [address] March, [facility] [place] [facility] [address] [id number] [place] [address] March, [facility] [place] [facility] [address] [id number] [place] [address] March, [facility] [place] [facility] [address] [id number] [place] [address] March, [facility] [place] [facility] [address] [id number] [place] [address] March, [facility] [place] [facility] [address] [id number] [place] [address] March, [facility] [place] [facility] [address] [id number] [place] [address] March, [facility] [place] [facility] [address] [id number] [place] [address] March, [facility] [place] [facility] [address] [id number] [place] [address] March, [facility] [place] [facility] [address] [id number] [place] [address] Feb, [facility] [place] [facility] [address] [id number] [place] [address] Feb, [facility] [place] [facility] [address] [id number] [place] [address] Feb, [facility] [place] [facility] [address] [id number] [place] [address] Feb, [facility] [place] [facility] [address] [id number] [place] [address] Feb, [facility] [place] [facility] [address] [id number] [place] [address] Feb, [facility] [place] [facility] [address] [id number] [place] [address] Feb, [facility] [place] [facility] [address] [facility] [id number] [place] [address] Feb, [facility] [place] [facility] [address] [id number] [place] [address] Jan, [facility] [place] [facility] [address] [id number] [place] [address] Jan, [facility] [place] [facility] [address] [id number] [place] [address] Jan, [facility] [place] [facility] [address] [id number] [place] [address] Jan, [facility] [place] [facility] [address] [id number] [place] [address] Jan, [facility] [place] [facility] [address] [id number] [place] [address] Jan, [facility] [place] [facility] [address] [id number] [place] [address] Jan, [facility] [place] [facility] [address] [id number] [place] [address] Jan, [facility] [place] [facility] [address] [id number], [place] [address] Jan, [facility] [place] [facility] [address] [id number] [place] [address] Jan, [facility] [place] [facility] [address] [id number] [place] [address] Dec, [facility] [place] [facility] [address] [id number] [place] [address] Dec, [facility] [place] [facility] [address] [id number] [place] [address] 26 Dec, 2013 [facility] [place] [facility] [address] [id number] [place] [address] Dec, [facility] [place] [facility] [address] [id number] [place] [address] 2013 [facility] [place] [facility] [address] [id number] [place] [address] Dec, [facility] [place] [facility] [address] [id number] [place] [address] Dec, [facility] [place] [facility] [address] [id number] [place] [address] Dec, [facility] [place] [facility] [address] [id number] [place] [address] Nov, [facility] [place] [facility] [address] [id number] [place] [address] Nov, [facility] [place] [facility] [address] [id number] [place] [address] Nov, [facility] [place] [facility] [address] [id number] [place] [address] Nov, [facility] [place] [facility] [address] [id number] [place] [address] Nov, [facility] [place] [facility] [address] [id number] [place] [address] Nov, [facility] [place] [facility] [address] [id number] [place] [address] Nov, [facility] [place] [facility] [address] [id number] [place] [address] Nov, [facility] [place] [facility] [address] [id number] [place] [address] Nov, [facility] [place] [facility] [address] [id number] [place] [address] Nov, [facility] [address] [id number] [place] [address] Nov, [facility] [place] [facility] [address] [id number] [place] [address] Nov, [facility] [address] [facility] [id number] [place] [address] Nov, [facility] [place] [facility] [address] [id number] [place] [address] Oct, [facility] [address] [id number] [place] [address] Oct, [facility] [address] [id number] [place] [address] Oct, [facility] [address] [id number] [place] [address] Oct, [facility] [place] [facility] [address] [id number] [place] [address] Oct, [facility] [address] [id number] [place] [address] Oct, [facility] [place] [facility] [address] [id number] [place] [address] Oct, [facility] [place] [facility] [address] [id number], [place] [address] Oct, [facility] [place] [facility] [address] [id number], [place] [address] Oct, [facility] [place] [facility] [address] [id number] [place] [address] Oct, [facility] [place] [facility] [address] [id number], [place] [address] Oct, [facility] [place] [facility] [address] [id number] [place] [address] Oct, [facility] [place] [facility] [address] [id number] [place] [address] 02 Oct, 2013 [facility] [place] [facility] [address] [id number] [place] [address] 02 Oct, 2013 [facility] [place] [facility] [address] [id number] [place] [address] Sep, [facility] [place] [facility] [address] [id number] [place] [address] Sep, [facility] [place] [facility] [address] [id number] [place] [address] Sep, [facility] [place] [facility] [address] [id number] [place] [address] 05 Sep, 2013 [facility] [place] [facility] [address] [id number] [place] [address] Sep, [facility] [place] [facility] [address] [id number] [place] [address] Sep, [facility] [place] [facility] [address] [id number] [place] [address] Sep, [facility] [place] [facility] [address] [id number] [place] [address] Sep, [facility] [place] [facility] [address] [facility] [id number] [place] [address] Sep, [facility] [place] [facility] [address] [id number] [place] [address] Sep, [facility] [place] [facility] [address] [id number], [place] [address] Aug, [facility] [place] [facility] [address] [id number] [place] [address] Aug, [facility] [place] [facility] [address] [facility] [id number] [place] [address] Aug, [facility] [place] [facility] [address] [id number] [place] [address] Aug, [facility] [place] [facility] [address] [id number] [place] [address] Aug, 2012 [facility] [place] [facility] [address] [id number] [place] [address] Aug, 2012 [facility] [place] [facility] [address] [id number] [place] [address] Aug, 2012 [facility] [place] [facility] [address] [id number] [place] [address] Aug, 2012 [facility] [address] [id number] [place] [address] Aug, 2012 [facility] [place] [facility] [address] [id number] [place] [address] Aug, [facility] [address] [id number] [place] [address] Aug, [facility] [place] [facility] [address] [id number] [place] [address] Aug, [facility] [place] [facility] [address] [id number] [place] [address] 18 Aug, 2013 [facility] [place] [facility] [address] [id number], [place] [address] 18 Aug, 2013 [facility] [place] [facility] [address] [id number] [place] [address] 17 Aug, 2013 [facility] [place] [facility] [address] [id number], [place] [address] 14 Aug, 2013 [facility] [place] [facility] [address] [id number] [place] [address] 14 Aug, 2013 [facility] [place] [facility] [address] [id number] [place] [address] Aug, [facility] [place] [facility] [address] [id number], [place] [address] 20 Jul, 2013 [facility] [place] [facility] [address] [id number], [place] [address] 19 Jul, 2013 [facility] [place] [facility] [address] [id number] [place] [address] 18 Jul, 2013 [facility] [place] [facility] [address] [id number] [place] [address] Jul, [facility] [place] [facility] [address] [id number] [place] [address] Jul, [facility] [place] [facility] [address] [id number] [place] [address] Jun, [facility] [place] [facility] [address] [id number] [place] [address] Jun, [facility] [place] [facility] [address] [id number] [place] [address] Jun, [facility] [place] [facility] [address] [id number] [place] [address] Jun, [facility] [place] [facility] [address] [id number] [place] [address] Jun, [facility] [place] [facility] [address] [id number] [place] [address] Jun, [facility] [place] [facility] [address] [id number] [place] [address] Jun, [facility] [place] [facility] [address] [id number] [place] [address] Jun, [facility] [place] [facility] [address] [id number] [place] [address] Jun, [facility] [place] [facility] [address] [id number] [place] [address] Jun, [facility] [place] [facility] [address] [id number] [place] [address] May, [facility] [place] [facility] [address] [id number] [place] [address] May, [facility] [place] [facility] [address] [id number] [place] [address] May, [facility] [address] [id number] [place] [address] May, [facility] [address] [id number] [place] [address] May, [facility] [address] [id number] [place] [address] May, [facility] [address] [id number] [place] [address] May, [facility] [address] [id number] [place] [address] May, [facility] [address] [id number] [place] [address] May, [facility] [address] [id number] [place] [address] Apr, [facility] [address] [id number] [place] [address] Apr, [facility] [address] [id number] [place] [address] Apr, [facility] [address] [id number] [place] [address] Apr, [facility] [address] [id number] [place] [address] Apr, [facility] [address] [id number] [place] [address] Apr, [facility] [place] [facility] [address] [id number] [place] [address] Apr, [facility] [address] [id number] [place] [address] March, [facility] [address] [id number] [place] [address] Feb, [facility] [address] [id number] [place] [address] Feb, [facility] [place] [facility] [address] [id number] [place] [address] Feb, [facility] [place] [facility] [address] [id number] [place] [address] 28 Jan, 2013 [facility] [place] [facility] [address] [id number] [place] [address] Jan, [facility] [place] [facility] [address] [id number] [place] [address] 19 Jan, 2013 [facility] [place] [facility] [address] [id number] [place] [address] 14 Jan, 2013 [facility] [place] [facility] [address] [id number] [place] [address] Jan, [facility] [place] [facility] [address] [id number] [place] [address] 08 Jan, 2013 [facility] [place] [facility] [address] [id number] [place] [address] 07 Jan, 2013 [facility] [place] [facility] [address] [id number] [place] [address] 04 Jan, 2013 [facility] [place] [facility] [address] [id number] [place] [address] 28 Dec, 2012 [facility] [place] [facility] [address] [id number] [place] [address] Dec, [facility] [place] [facility] [address] [id number] [place] [address] 13 Dec, 2012 [facility] [place] [facility] [address] [id number] [place] [address] 11 Dec, 2012 [facility] [place] [facility] [address] [id number] [place] [address] 07 Dec, 2012 [facility] [place] [facility] [address] [id number] [place] [address] 06 Dec, 2012 [facility] [address] [id number] [place] [address] 05 Dec, 2012 [facility] [address] [id number] [place] [address] 31 Nov, 2012 [facility] [address] [id number] [place] [address] 24 Nov, 2012 [facility] [address] [id number] [place] [address] 18 Nov, 2012 [facility] [address] [id number] [place] [address] 15 Nov, 2012 [facility] [address] [id number] [place] [address] Nov, [facility] [address] [id number] [place] [address] Nov, [facility] [address] [id number] [place] [address] Nov, [facility] [address] [id number] [place] [address] Oct, [facility] [address] [id number] [place] [address] 31 Oct, 2012 [facility] [address] [id number] [place] [address] Oct, [facility] [address] [id number] [place] [address] Oct, [facility] [address] [id number] [place] [address] 17 Oct, 2012 [facility] [address] [id number] [place] [address] 17 Oct, 2012 [facility] [address] [id number] [place] [address] Oct, [facility] [place] [facility] [address] [id number] [place] [address] Oct, [facility] [place] [facility] [address] [id number] [place] [address] Oct, [facility] [place] [facility] [address] [id number] [place] [address] Oct, [facility] [place] [facility] [address] [id number] [place] [address] Oct, [facility] [place] [facility] [address] [id number] [place] [address] Oct, [facility] [place] [facility] [address] [id number] [place] [address] Sep, [facility] [place] [facility] [address] [id number] [place] [address] Sep, [facility] [place] [facility] [address] [id number], [place] [address] Sep, [facility] [place] [facility] [address] [id number] [place] [address] Sep, [facility] [place] [facility] [address] [id number], [place] [address] Sep, [facility] [place] [facility] [address] [id number], [place] [address] Sep, [facility] [place] [facility] [address] [id number], [place] [address] Sep, [facility] [place] [facility] [address] [id number], [place] [address] Sep, [facility] [place] [facility] [address] [id number], [place] [address] Sep, [facility] [place] [facility] [address] [facility] [id number], [place] [address] Sep, [facility] [place] [facility] [address] [id number], [place] [address] Sep, [facility] [place] [facility] [address] [id number] [place] [address] Aug, [facility] [place] [facility] [address] [facility] [id number], [place] [address] Aug, [facility] [place] [facility] [address] [facility] [id number] [place] [address] Aug, [facility] [place] [facility] [address] [id number] [place] [address] Aug, [facility] [place] [facility] [address] [facility] [id number] [place] [address], [place] [address] Aug, [facility] [place] [facility] [address] [facility] [id number] [place] [address] Aug, [facility] [place] [facility] [id number], [place] [address] Aug, [facility] [place] [facility] [address] [facility] [id number] [place] [address] Aug, [facility] [place] [facility] [address] [id number] [address] Aug, [facility] [place] [facility] [address] [facility] [id number], [place] [address] Aug, [facility] [place] [facility] [address] [facility] [id number], [place] [address] Jul, [facility] [place] [facility] [address] [facility] [id number], [place] [address] 20 Jul, 2012 [facility] [place] [facility] [address] [facility] [id number], [place] [address] 10 Jul, 2012 [facility] [place] [facility] [address] [facility] [id number], [place] [address] 06 Jul, 2012 [facility] [place] [facility] [address] [id number], [place] [address] Jun, [facility] [place] [facility] [address] [id number] [place] [address] Jun, [facility] [place] [facility] [address] [id number] [facility] [place] [address] Jun, [facility] [place] [facility] [address] [id number] [place] [address] Jun, [facility] [place] [facility] [address] [id number] [place] [address] Jun, [facility] [place] [facility] [address] [id number] [place] [address] Jun, [facility] [place] [facility] [address] [id number] [place] [address] Jun, [facility] [place] [facility] [address] [id number] [place] [address] May, [facility] [place] [facility] [address] [id number] [place] [address] May, [facility] [place] [facility] [address] [id number] [place] [address] May, [facility] [place] [facility] [address] [id number] [place] [address] May, [facility] [place] [facility] [address] [id number] [place] [address] May, [facility] [place] [facility] [address] [id number] [place] [address] Apr, [facility] [place] [facility] [address] [id number] [place] [address] Apr, [facility] [place] [facility] [address] [id number] [place] [address] Apr, [facility] [place] [facility] [address] [id number] [place] [address] Apr, [facility] [place] [facility] [address] [id number] [place] [address] Apr, [facility] [address] [id number] [place] [address] March, [facility] [address] [id number] [place] [address] March, [facility] [address] [id number] [place] [address] March, [facility] [address] [id number] [place] [address] March, [facility] [address] [id number] [place] [address] March, [facility] [address] [id number] [place] [address] March, [facility] [address] [id number] [place] [address] March, [facility] [address] [id number] [place] [address] March, [facility] [address] [id number] [place] [address] March, [facility] [place] [facility] [address] [id number] [place] [address] March, [facility] [place] [facility] [address] [id number] [place] [address] Feb, [facility] [place] [facility] [address] [id number] [place] [address] Feb, [facility] [place] [facility] [address] [id number] [place] [address] Feb, [facility] [place] [facility] [address] [id number] [place] [address] Feb, [facility] [place] [facility] [address] [id number] [place] [address] Feb, [facility] [place] [facility] [address] [id number] [place] [address] 17 Feb, 2012 [facility] [address] [id number] [place] [address] Feb, [facility] [place] [facility] [address] [id number] [place] [address] Feb, [facility] [address] [id number] [place] [address] Feb, [facility] [place] [facility] [address] [id number] [place] [address] 08 Jan, 2012 [facility] [address] [id number] [place] [address] Jan, [facility] [address] [id number] [place] [address] Jan, [facility] [address] [id number] [place] [address] Jan, [facility] [address] [id number] [place] [address] Dec, [facility] [address] [id number] [place] [address] Dec, [facility] [address] [id number] [place] [address] Nov, [facility] [address] [id number] [place] [address] Nov, [facility] [place] [facility] [address] [id number] [place] [address] 18 Nov, 2011 [facility] [place] [facility] [address] [id number] [place] [address] 16 Nov, 2011 [facility] [place] [facility] [address] [id number] [place] [address] Nov, [facility] [place] [facility] [address] [id number] [place] [address] Oct, [facility] [address] [id number] [address] Oct, [facility] [id number] [place] [address] Oct, [facility] [id number] [place] [address] Oct, [facility] [id number] [place] [address] Oct, [facility] [id number] [place] [address] Oct, [facility] [id number], [place] [address] Oct, [facility] [id number] [place] [address] Oct, [facility] [address] [id number] [address] Sep, IMMUNIZATIONS No Known Immunizations SOCIAL HISTORY Never Assessed REASON FOR VISIT correction PLAN OF CARE VITAL SIGNS MEDICATIONS Unknown Medications RESULTS No Results PROCEDURES No Known procedures INSTRUCTIONS MEDICATIONS ADMINISTERED No Known Medications MEDICAL (GENERAL) HISTORY Type Description Date 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
--- OUTSIDE RECORDS SUMMARY | 2019-04-16 15:47 | XMS REPORT ---
Author Author SHAHNAZ MARQUEZ [facility] Address [address] [place] [address] Care Team Providers [facility] Hand Name Role Phone SHAHNAZ MARQUEZ Unavailable PROBLEMS Type Condition ICD9-CM Code DMB08-YA Code Onset Dates Condition Status SNOMED Code Problem Reactive depression F32.9 Active 36098748 Problem Anxiety F41.9 Active 71693927 Problem Pharyngeal dysphagia R13.13 Active 16284823721778 Problem Suprapubic catheter Z93.59 Active 906768695 Problem Encounter for suprapubic catheter care Z43.5 Active 082866276 Problem Insomnia G47.00 Active 965848039 Problem Peripheral vascular disease I73.9 Active 872142995 Problem 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 Active 29111259 Problem Paroxysmal atrial fibrillation I48.0 Active 598195977 Problem Hypertension I10 Active 91700320 Problem Other chronic pain G89.29 Active 20599221 Problem Low back pain M54.5 Active 529091169 Problem Coronary artery disease I25.10 Active 18566757 Problem Type 2 diabetes mellitus without complication, without long-term current use of insulin E11.9 Active 122602641 Problem Hyperlipidemia E78.5 Active 42046344 Problem Ventral hernia without obstruction or gangrene K43.9 Active 510747199 ALLERGIES No Information ENCOUNTERS Encounter Location Date Diagnosis [facility] [id number] [address] Oct, Anxiety F41.9 [facility] [id number] [place] [address] Oct, Anxiety F41.9 [facility] [address] [place] [id number] Oct, Other chronic pain G89.29 [facility] [id number] [place] [address] Sep, Other chronic pain G89.29 [facility] [employer] [facility] [address] [place] [id number] Sep, Suprapubic catheter Z93.59 and Cervicalgia M54.2 [facility] [address] [id number] [address] Sep, [facility] [address] [id number] [address] Sep, [facility] [address] [id number] [address] Sep, [facility] [employer] [facility] [address] [place] [id number] Aug, Cystitis N30.90 [facility] [address] [id number] [address] Aug, [facility] [address] [id number] [place] [address] Aug, Other chronic pain G89.29 [facility] [address] [id number] [address] Aug, [facility] [employer] [address] [place] [id number] Aug, Encounter for suprapubic catheter care Z43.5 [facility] [address] [id number] [place] [address] Jul, [facility] [employer] [address] [place] [id number] Jul, [facility] [address] [id number] [place] [address] Jul, Other chronic pain G89.29 [facility] [address] [id number] [place] [address] Jul, [facility] [address] [id number] [address] Jul, [facility] [employer] [address] [place] [id number] Jun, 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 [address] [facility] [id number] [address] Jun, Other chronic pain G89.29 [address] [id number] [place] [address] Jun, [facility] [employer] [facility] [address] [place] [id number] May, Anxiety F41.9 ; Type 2 diabetes mellitus without complication, without long-term current use of insulin E11.9 ; Hypertension I10 ; Low back pain M54.5 ; Paroxysmal atrial fibrillation I48.0 and 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 [place] [address] [place] [address] May, Other chronic pain G89.29 [facility] [employer] [address] [place] [id number] May, Low back pain M54.5 [place] [id number] [place] [address] May, [place] [id number] [place] [address] Apr, Other chronic pain G89.29 [place] [id number] [place] [address] Apr, [place] [id number] [place] [address] Apr, [facility] [employer] [address] [place] [id number] Apr, Closed compression fracture of L3 lumbar vertebra with routine healing, subsequent encounter S32.030D [facility] [employer] [address] [place] [id number] Apr, 2018 Low back pain M54.5 [facility] [employer] [address] [place] [id number] 12 Apr, 2018 Coccydynia M53.3 [place] [id number] [place] [address] March, [facility] [address] [address] March, Other chronic pain G89.29 [facility] [address]005[address]100[place] [address] March, [facility] [address]005[address]100[place] [address] March, [facility] [address]005[address] [address] Feb, [facility] [id number] [place] [address] Feb, Other chronic pain G89.29 [facility] [employer] [address] [place] [id number] Feb, Other chronic pain G89.29 and Anxiety F41.9 [facility] [address]00565100[place] [address] Feb, [facility] [address]005[address]100[place] [address] Jan, [facility] [id number] [place] [address] Jan, [facility] [address]005[address] [address] Jan, [facility] [address]005[address]100[place] [address] Jan, [facility] [id number] [address] Dec, [facility] [employer] [address] [place] [id number] Dec, Peripheral vascular disease I73.9 ; 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 ; Other chronic pain G89.29 ; Anxiety F41.9 ; Reactive depression F32.9 ; Insomnia G47.00 and Type 2 diabetes mellitus without complication, without long-term current use of insulin E11.[address] [id number] [place] [address] Nov, [facility] [id number] [id number] Nov, Anxiety F41.9 [facility] [id number] [address] Nov, [facility] [id number] [place] [id number] Nov, Anxiety F41.9 [facility] [employer] [address] [place] [id number] Nov, Status post surgery Z98.890 ; Confused R41.0 ; Anxiety F41.9 and Other chronic pain G89.29 [facility] [address] [id number] [id number] Nov, Other chronic pain G89.29 [facility] [address]005[address] [address] Oct, [facility] [id number] [place] [id number] Oct, Other chronic pain G89.29 [facility] [id number] [address] Oct, Anxiety F41.9 [facility] [id number] [place] [address] Sep, Other chronic pain G89.29 [facility] [address] [id number] [id number] Sep, [facility] [employer] [address] [place] [id number] Aug, Dysuria R30.0 and Anxiety F41.9 [facility] [address] [facility] [id number] [address] Aug, [facility] [address] [id number] [id number] Aug, Other chronic pain G89.29 [facility] [id number] [address] Jul, Other chronic pain G89.29 [facility] [id number] [address] Jun, [facility] [id number] [address] Jun, Other chronic pain G89.29 [facility] [address]100[place] [address] Jun, [facility] [address]100[place] [address] May, Other chronic pain G89.29 [facility] [address]100[place] [address] Apr, Other chronic pain G89.29 [facility] [address] [place] [id number] Apr, Reactive depression F32.9 and Pharyngeal dysphagia R13.13 [facility] [address]100[place] [address] Apr, Urinary tract infection without hematuria, site unspecified N39.0 [facility] [id number] [address] March, Other chronic pain G89.29 [facility] [id number] [address] Feb, Other chronic pain G89.29 [facility] [id number] [address] Feb, [facility] [id number] [id number] Feb, [facility] [employer] [address] [place] [id number] Feb, Dysuria R30.0 and Ventral hernia without obstruction or gangrene K43.9 [facility] [address]005[address]100[place] [address] Jan, Other chronic pain G89.29 [facility] [id number] [place] [id number] Dec, Other chronic pain G89.29 [facility] [address]00565100[place] [address] Nov, Other chronic pain G89.29 [facility] [address] [place] [id number] Nov, Lymphadenitis I88.9 [facility] [id number] [place] [address] Nov, Other chronic pain G89.29 [facility] [id number] [place] [address] Nov, [facility] [id number] [place] [id number] Nov, Other chronic pain G89.29 [facility] [address] [place] [id number] Oct, Low back pain M54.5 ; Hypertension I10 and Type 2 diabetes mellitus without complication, without long-term current use of insulin E11.9 [facility] [address]005[address]100[place] [address] Oct, [facility] [address]100[place] [address] Oct, [facility] [address]100[place] [address] Oct, [facility] [address]100[place] [address] Oct, [facility] [address]005[address]100[place] [address] Sep, [facility] [address]100[place] [address] Sep, [facility] [address]100[place] [address] 10 Aug, 2016 Other chronic pain G89.29 [facility] [address] [facility] [id number] [address] Jul, [facility] [address]100[place] [address] Jul, [facility] [id number] [place] [address] Jul, [facility] [address]100[place] [address] Jun, [facility] [id number] [place] [address] Jun, [facility] [address] [place] [id number] Jun, Low back pain M54.5 ; Other chronic pain G89.29 and Coronary artery disease I25.10 [facility] [address]100[place] [address] Jun, [facility] [address]100[place] [address] May, [facility] [address] [address] May, [facility] [address] [address] May, Other chronic pain G89.29 [facility] [address]100[place] [address] May, [facility] [address] [address] Apr, [facility] [address] [address] 17 Apr, 2016 Acute cystitis without hematuria N30.00 [facility] [address] [place] [address] 16 Apr, 2016 Acute cystitis without hematuria N30.00 ; Coronary artery disease I25.10 ; Low back pain M54.5 and Other chronic pain G89.29 [facility] [id number] [place] [address] Apr, Other chronic pain G89.29 [facility] [id number] [place] [address] March, Other chronic pain G89.29 [facility] [id number] [place] [address] Feb, [facility] [id number] [place] [address] Feb, Arthritis M19.90 [facility] [id number] [place] [address] Feb, [facility] [id number] [place] [address] Jan, [facility] [id number] [place] [address] Jan, [facility] [id number] [place] [address] Jan, Other chronic pain G89.29 [facility] [id number] [place] [address] Jan, Hypertension I10 ; Coronary artery disease I25.10 and Insomnia G47.00 [facility] [id number] [place] [address] Jan, [facility] [id number] [place] [address] 29 Dec, 2015 Right hip pain M25.551 [facility] [id number] [place] [address] Dec, [facility] [id number] [place] [address] Dec, [facility] [address]100[place] [address] Dec, [facility] [address]005[address]100[place] [address] Dec, Other chronic pain G89.29 [facility] [id number] [place] [address] Dec, [facility] [id number] [place] [address] Nov, [facility] [id number] [place] [address] Nov, Other chronic pain G89.29 [facility] [id number] [place] [address] Nov, Right hip pain M25.551 and Coronary artery disease I25.10 [facility] [address] [address] Nov, Other chronic pain G89.29 [facility] [id number] [place] [address] Oct, [facility] [address]100[place] [address] Oct, [facility] [address] [address] Sep, [facility] [address] [address] Sep, [facility] [id number] [place] [address] Aug, [facility] [address]005[address] [address] 15 Aug, 2015 Hypertension I10 ; Coronary artery disease I25.10 and Arthritis M19.90 [facility] [id number] [place] [address] Jun, [facility] [address] [id number] [place] [address] Jun, Essential hypertension, benign 401.1 ; Other chronic pain 338.29 and Chronic airway obstruction, not elsewhere classified [facility] [address] [id number] [place] [address] Jun, [facility] [address] [id number] [place] [address] Jun, [facility] [address] [facility] [id number] [place] [address] Jun, [facility] [address] [facility] [id number] [place] [address] May, [facility] [address] [place] [address] May, [facility] [id number] [place] [address] Apr, [facility] [id number] [place] [address] Apr, [facility] [id number] [place] [address] Apr, [facility] [id number] [place] [address] March, [facility] [address] [facility] [id number] [place] [address] March, [facility] [address] [facility] [id number] [place] [address] March, [facility] [address] [facility] [id number] [place] [address] March, [facility] [id number] [place] [address] March, Sialadenitis 527.2 [facility] [place] [facility] [address] [id number] [place] [address] Feb, [facility] [place] [facility] [address] [id number] [place] [address] Feb, [facility] [place] [facility] [address] [id number] [place] [address] Feb, [facility] [place] [facility] [address] [id number] [place] [address] 14 Feb, 2015 [facility] [place] [facility] [address] [id number] [place] [address] Feb, [facility] [place] [facility] [address] [id number] [place] [address] Jan, [facility] [place] [facility] [address] [facility] [id number] [place] [address] Jan, [facility] [place] [facility] [address] [facility] [id number] [place] [address] Jan, [facility] [place] [facility] [address] [facility] [id number] [place] [address] Jan, [facility] [place] [facility] [address] [facility] [id number] [place] [address] Jan, [facility] [place] [facility] [address] [facility] [id number] [place] [address] Jan, [facility] [place] [facility] [address] [facility] [id number] [place] [address] Dec, 2014 [facility] [place] [facility] [address] [id number] [place] [address] Dec, [facility] [place] [facility] [address] [id number] [place] [address] Dec, [facility] [place] [facility] [address] [facility] [id number] [place] [address] Dec, 2014 [facility] [place] [facility] [address] [facility] [id number] [address] Dec, [facility] [place] [facility] [address] [id number] [place] [address] Dec, [facility] [place] [facility] [address] [id number] [place] [address] Nov, [facility] [place] [facility] [address] [id number] [place] [address] Nov, [facility] [place] [facility] [address] [id number] [place] [address] Nov, [facility] [place] [facility] [address] [id number] [place] [address] Nov, [facility] [place] [facility] [address] [id number] [place] [address] Nov, [facility] [place] [facility] [address] [id number] [address] Nov, [facility] [place] [facility] [address] [id number] [place] [address] Nov, [facility] [place] [facility] [address] [id number] [place] [address] Nov, [facility] [place] [facility] [address] [id number] [place] [address] Nov, [facility] [place] [facility] [address] [id number] [place] [address] Nov, [facility] [place] [facility] [address] [id number] [address] Nov, [facility] [place] [facility] [address] [id number] [place] [address] Nov, [facility] [place] [facility] [address] [id number] [address] Nov, [facility] [place] [facility] [address] [id number] [address] Nov, [facility] [place] [facility] [address] [id number] [place] [address] Oct, [facility] [place] [facility] [address] [id number] [place] [address] Oct, [facility] [place] [facility] [address] [id number] [place] [address] Oct, [facility] [place] [facility] [address] [id number] [place] [address] 18 Oct, 2014 [facility] [place] [facility] [address] [id number] [place] [address] 18 Oct, 2014 [facility] [place] [facility] [address] [id number] [place] [address] Oct, [facility] [place] [facility] [address] [id number] [place] [address] Oct, [facility] [place] [facility] [address] [id number] [place] [address] Oct, [facility] [place] [facility] [address] [id number] [place] [address] Oct, [facility] [place] [facility] [address] [id number] [place] [address] Sep, [facility] [place] [facility] [address] [id number] [place] [address] Sep, [facility] [place] [facility] [address] [id number] [place] [address] Sep, [facility] [place] [facility] [address] [id number] [place] [address] Sep, [facility] [place] [facility] [address] [id number] [place] [address] Sep, [facility] [place] [facility] [address] [id number] [place] [address] Sep, [facility] [place] [facility] [address] [id number] [place] [address] Sep, [facility] [place] [facility] [address] [id number] [place] [address] Sep, [facility] [place] [facility] [address] [id number] [place] [address] Sep, [facility] [place] [facility] [address] [id number] [place] [address] Sep, [facility] [place] [facility] [address] [id number] [place] [address] Sep, [facility] [place] [facility] [address] [id number] [place] [address] Sep, [facility] [place] [facility] [address] [id number] [place] [address] Aug, [facility] [place] [facility] [address] [id number] [place] [address] Aug, [facility] [place] [facility] [address] [id number] [address] Aug, [facility] [place] [facility] [address] [id number] [place] [address] Aug, [facility] [place] [facility] [address] [id number] [place] [address] Aug, [facility] [place] [facility] [address] [id number] [address] Aug, [facility] [place] [facility] [address] [id number] [address] Aug, [facility] [place] [facility] [address] [id number] [place] [address] Aug, [facility] [place] [facility] [address] [id number] [address] 30 Jul, 2014 [facility] [place] [facility] [address] [id number] [place] [address] 30 Jul, 2014 [facility] [place] [facility] [address] [id number] [place] [address] 30 Jul, 2013 [facility] [place] [facility] [address] [id number] [place] [address] 30 Jul, 2013 [facility] [place] [facility] [address] [id number] [place] [address] 25 Jul, 2013 [facility] [place] [facility] [address] [id number] [place] [address] 25 Jul, 2013 [facility] [place] [facility] [address] [id number] [place] [address] 15 Jul, 2013 [facility] [place] [facility] [address] [id number] [place] [address] 15 Jul, 2013 [facility] [place] [facility] [address] [id number] [place] [address] 11 Jul, 2014 [facility] [place] [facility] [address] [id number] [place] [address] Jul, 2013 [facility] [place] [facility] [address] [id number] [place] [address] Jun, [facility] [place] [facility] [address] [id number] [place] [address] Jun, [facility] [place] [facility] [address] [id number] [place] [address] Jun, [facility] [place] [facility] [address] [id number] [place] [address] Jun, [facility] [place] [facility] [address] [id number] [place] [address] Jun, [facility] [place] [facility] [address] [id number] [place] [address] Jun, [facility] [place] [facility] [address] [id number] [place] [address] Jun, [facility] [place] [facility] [address] [id number] [place] [address] Jun, [facility] [place] [facility] [address] [id number] [place] [address] Jun, [facility] [place] [facility] [address] [id number] [place] [address] Jun, [facility] [place] [facility] [address] [id number] [place] [address] Jun, [facility] [place] [facility] [address] [id number] [place] [address] Jun, [facility] [place] [facility] [address] [id number] [place] [address] Jun, [facility] [place] [facility] [address] [id number] [place] [address] Jun, [facility] [place] [facility] [address] [id number] [place] [address] Jun, [facility] [place] [facility] [address] [id number] [place] [address] Jun, [facility] [place] [facility] [address] [id number] [place] [address] Jun, [facility] [place] [facility] [address] [id number] [place] [address] Jun, [facility] [place] [facility] [address] [id number] [place] [address] Jun, [facility] [place] [facility] [address] [id number] [place] [address] Jun, [facility] [place] [facility] [address] [id number] [place] [address] Jun, [facility] [place] [facility] [address] [id number] [place] [address] Jun, [facility] [place] [facility] [address] [id number] [place] [address] May, [facility] [place] [facility] [address] [id number] [place] [address] May, [facility] [place] [facility] [address] [id number] [place] [address] May, [facility] [place] [facility] [address] [id number] [place] [address] May, [facility] [place] [facility] [address] [id number] [place] [address] May, [facility] [place] [facility] [address] [id number] [place] [address] May, [facility] [place] [facility] [address] [id number] [place] [address] May, [facility] [place] [facility] [address] [id number] [place] [address] May, [facility] [place] [facility] [address] [id number] [place] [address] May, [facility] [place] [facility] [address] [id number] [place] [address] May, [facility] [place] [facility] [address] [id number] [place] [address] May, [facility] [place] [facility] [address] [id number] [place] [address] May, [facility] [place] [facility] [address] [id number] [place] [address] May, [facility] [place] [facility] [address] [id number] [place] [address] Apr, [facility] [place] [facility] [address] [id number] [place] [address] Apr, [facility] [place] [facility] [address] [id number] [place] [address] Apr, [facility] [place] [facility] [address] [id number] [place] [address] Apr, [facility] [place] [facility] [address] [id number] [place] [address] Apr, [facility] [place] [facility] [address] [id number] [place] [address] Apr, [facility] [place] [facility] [address] [id number] [place] [address] Apr, [facility] [place] [facility] [address] [id number] [place] [address] Apr, [facility] [place] [facility] [address] [id number] [place] [address] Apr, [facility] [place] [facility] [address] [id number] [place] [address] March, [facility] [place] [facility] [address] [id number] [place] [address] March, [facility] [place] [facility] [address] [id number] [place] [address] March, [facility] [address] [id number] [place] [address] March, [facility] [place] [facility] [address] [id number] [place] [address] March, [facility] [address] [id number] [place] [address] March, [facility] [place] [facility] [address] [id number] [place] [address] March, [facility] [place] [facility] [address] [id number] [place] [address] March, [facility] [place] [facility] [address] [id number] [place] [address] March, [facility] [place] [facility] [address] [id number] [place] [address] March, [facility] [place] [facility] [address] [id number] [place] [address] March, [facility] [place] [facility] [address] [id number] [place] [address] March, [facility] [place] [facility] [address] [id number] [place] [address] March, [facility] [place] [facility] [address] [id number] [place] [address] March, [facility] [place] [facility] [address] [id number] [place] [address] March, [facility] [place] [facility] [address] [id number] [place] [address] March, [facility] [place] [facility] [address] [id number] [place] [address] March, [facility] [place] [facility] [address] [id number] [place] [address] March, [facility] [place] [facility] [address] [id number] [place] [address] March, [facility] [place] [facility] [address] [id number] [place] [address] March, [facility] [place] [facility] [address] [id number] [place] [address] Feb, [facility] [place] [facility] [address] [id number] [place] [address] Feb, [facility] [place] [facility] [address] [id number] [place] [address] Feb, [facility] [place] [facility] [address] [id number] [place] [address] Feb, [facility] [place] [facility] [address] [id number] [place] [address] Feb, [facility] [place] [facility] [address] [id number] [place] [address] Feb, [facility] [place] [facility] [address] [id number] [address] Feb, [facility] [place] [facility] [address] [id number] [place] [address] Feb, [facility] [place] [facility] [address] [id number] [place] [address] Jan, [facility] [place] [facility] [address] [facility] [id number] [place] [address] Jan, [facility] [place] [facility] [address] [id number] [place] [address] Jan, [facility] [place] [facility] [address] [id number] [place] [address] Jan, [facility] [place] [facility] [address] [facility] [id number] [place] [address] Jan, [facility] [place] [facility] [address] [facility] [id number] [place] [address] Jan, [facility] [place] [facility] [address] [facility] [id number] [place] [address] Jan, [facility] [place] [facility] [address] [id number] [place] [address] Jan, [facility] [place] [facility] [address] [facility] [id number] [place] [address] Jan, [facility] [place] [facility] [address] [id number] [place] [address] Jan, [facility] [place] [facility] [address] [id number] [place] [address] Dec, [facility] [place] [facility] [address] [id number] [place] [address] Dec, [facility] [place] [facility] [address] [id number] [place] [address] Dec, [facility] [place] [facility] [address] [facility] [id number] [address] 2013 [facility] [place] [facility] [address] [id number] [place] [address] 2013 [facility] [place] [facility] [address] [id number] [place] [address] Dec, [facility] [place] [facility] [address] [id number] [place] [address] Dec, [facility] [place] [facility] [address] [id number] [place] [address] Dec, [facility] [place] [facility] [address] [id number] [place] [address] Nov, [facility] [place] [facility] [address] [id number] [place] [address] Nov, [facility] [place] [facility] [address] [id number] [place] [address] Nov, [facility] [place] [facility] [address] [id number] [place] [address] Nov, [facility] [place] [facility] [address] [id number] [place] [address] Nov, [facility] [place] [facility] [address] [id number] [place] [address] Nov, [facility] [place] [facility] [address] [id number] [place] [address] Nov, [facility] [place] [facility] [address] [id number] [place] [address] Nov, [facility] [place] [facility] [address] [id number] [place] [address] Nov, [facility] [place] [facility] [address] [id number] [place] [address] Nov, [facility] [place] [facility] [address] [id number] [place] [address] Nov, [facility] [place] [facility] [address] [id number] [address] 15 Nov, 2013 [facility] [address] [id number] [place] [address] 15 Nov, 2013 [facility] [address] [id number] [place] [address] 30 Oct, 2013 [facility] [address] [facility] [id number] [place] [address] Oct, [facility] [address] [id number] [place] [address] Oct, [facility] [address] [id number] [place] [address] Oct, [facility] [address] [id number] [place] [address] Oct, [facility] [address] [id number] [place] [address] Oct, [facility] [address] [id number] [place] [address] Oct, [facility] [address] [id number] [place] [address] Oct, [facility] [address] [facility] [id number] [place] [address] Oct, [facility] [address] [id number] [place] [address] Oct, [facility] [address] [id number] [address] Oct, [facility] [address] [id number] [place] [address] Oct, [facility] [address] [facility] [id number] [place] [address] Oct, [facility] [address] [facility] [id number] [place] [address] Oct, [facility] [place] [facility] [address] [id number] [place] [address] 14 Sep, 2013 [facility] [place] [facility] [address] [id number] [place] [address] 14 Sep, 2013 [facility] [place] [facility] [address] [id number] [place] [address] 05 Sep, 2013 [facility] [place] [facility] [address] [id number] [place] [address] 05 Sep, 2013 [facility] [place] [facility] [address] [id number] [place] [address] Sep, [facility] [place] [facility] [address] [id number] [place] [address] Sep, [facility] [place] [facility] [address] [id number] [place] [address] Sep, [facility] [place] [facility] [address] [id number] [place] [address] Sep, [facility] [place] [facility] [address] [id number] [place] [address] Sep, [facility] [place] [facility] [address] [id number] [place] [address] Sep, [facility] [place] [facility] [address] [id number] [place] [address] Aug, [facility] [place] [facility] [address] [id number] [place] [address] Aug, [facility] [place] [facility] [address] [id number] [place] [address] Aug, [facility] [place] [facility] [address] [id number] [place] [address] Aug, [facility] [place] [facility] [address] [id number] [place] [address] Aug, [facility] [place] [facility] [address] [id number] [place] [address] 23 Aug, 2013 [facility] [place] [facility] [address] [id number] [place] [address] 23 Aug, 2012 [facility] [place] [facility] [address] [id number] [place] [address] 23 Aug, 2013 [facility] [place] [facility] [address] [id number] [place] [address] Aug, [facility] [place] [facility] [address] [id number] [place] [address] 22 Aug, 2013 [facility] [place] [facility] [address] [id number] [place] [address] 18 Aug, 2013 [facility] [place] [facility] [address] [id number] [place] [address] 18 Aug, 2013 [facility] [place] [facility] [address] [id number] [place] [address] 18 Aug, 2013 [facility] [place] [facility] [address] [id number] [address] 18 Aug, 2013 [facility] [place] [facility] [address] [id number] [place] [address] 17 Aug, 2013 [facility] [place] [facility] [address] [id number] [place] [address] 14 Aug, 2013 [facility] [place] [facility] [address] [id number] [address] 14 Aug, 2013 [facility] [place] [facility] [address] [id number] [place] [address] Aug, [facility] [place] [facility] [address] [id number] [place] [address] 20 Jul, 2013 [facility] [place] [facility] [address] [id number] [place] [address] 19 Jul, 2013 [facility] [place] [facility] [address] [id number] [place] [address] 18 Jul, 2013 [facility] [place] [facility] [address] [id number] [place] [address] Jul, [facility] [place] [facility] [address] [id number] [place] [address] Jul, [facility] [place] [facility] [address] [id number] [place] [address] Jun, [facility] [place] [facility] [address] [id number] [place] [address] Jun, [facility] [place] [facility] [address] [id number] [place] [address] Jun, [facility] [place] [facility] [address] [id number] [place] [address] Jun, [facility] [place] [facility] [address] [id number] [place] [address] Jun, [facility] [place] [facility] [address] [id number] [place] [address] Jun, [facility] [place] [facility] [address] [id number] [place] [address] Jun, [facility] [place] [facility] [address] [id number] [place] [address] Jun, [facility] [place] [facility] [address] [id number] [place] [address] Jun, [facility] [place] [facility] [address] [id number] [place] [address] Jun, [facility] [place] [facility] [address] [id number] [place] [address] May, [facility] [place] [facility] [address] [id number] [place] [address] May, [facility] [place] [facility] [address] [id number] [place] [address] May, [facility] [place] [facility] [address] [id number] [place] [address] May, [facility] [place] [facility] [address] [id number] [place] [address] May, [facility] [address] [id number] [place] [address] May, [facility] [address] [id number] [place] [address] May, [facility] [address] [id number] [place] [address] May, [facility] [address] [id number] [place] [address] May, [facility] [address] [id number] [place] [address] Apr, [facility] [address] [id number] [place] [address] Apr, [facility] [address] [id number] [place] [address] Apr, [facility] [address] [id number] [place] [address] Apr, [facility] [address] [id number] [place] [address] Apr, [facility] [address] [id number] [place] [address] Apr, [facility] [address] [id number] [place] [address] Apr, [facility] [place] [facility] [address] [id number] [place] [address] March, [facility] [place] [facility] [address] [id number] [place] [address] Feb, [facility] [place] [facility] [address] [id number] [place] [address] Feb, [facility] [place] [facility] [address] [id number] [place] [address] 12 Feb, 2013 [facility] [address] [id number] [place] [address] 28 Jan, 2013 [facility] [place] [facility] [address] [id number] [place] [address] 21 Jan, 2013 [facility] [address] [id number] [place] [address] 19 Jan, 2013 [facility] [place] [facility] [address] [id number] [place] [address] 14 Jan, 2013 [facility] [address] [id number] [place] [address] 12 Jan, 2013 [facility] [address] [id number] [place] [address] 08 Jan, 2013 [facility] [address] [id number] [place] [address] 07 Jan, 2013 [facility] [place] [facility] [address] [id number] [place] [address] 04 Jan, 2013 [facility] [place] [facility] [address] [id number] [place] [address] 28 Dec, 2012 [facility] [place] [facility] [address] [id number] [place] [address] 25 Dec, 2012 [facility] [address] [id number] [place] [address] 13 Dec, 2012 [facility] [place] [facility] [address] [id number] [place] [address] 11 Dec, 2012 [facility] [place] [facility] [address] [id number] [place] [address] 07 Dec, 2012 [facility] [place] [facility] [address] [id number] [place] [address] 06 Dec, 2012 [facility] [place] [facility] [address] [facility] [id number] [place] [address] 05 Dec, 2012 [facility] [place] [facility] [address] [id number] [place] [address] 31 Nov, 2012 [facility] [address] [id number] [place] [address] 24 Nov, 2012 [facility] [place] [facility] [address] [id number] [place] [address] 18 Nov, 2012 [facility] [address] [id number] [place] [address] 15 Nov, 2012 [facility] [address] [id number] [place] [address] Nov, [facility] [address] [id number] [place] [address] Nov, [facility] [address] [id number] [place] [address] Nov, [facility] [address] [id number] [place] [address] Oct, [facility] [address] [id number] [place] [address] Oct, [facility] [address] [id number] [place] [address] Oct, [facility] [address] [id number] [place] [address] Oct, [facility] [place] [facility] [address] [id number] [place] [address] Oct, [facility] [place] [facility] [address] [id number] [place] [address] Oct, [facility] [place] [facility] [address] [id number] [place] [address] Oct, [facility] [place] [facility] [address] [id number] [place] [address] 07 Oct, 2012 [facility] [place] [facility] [address] [id number] [address] Oct, [facility] [place] [facility] [address] [id number] [place] [address] Oct, [facility] [place] [facility] [address] [id number] [place] [address] Oct, [facility] [place] [facility] [address] [facility] [id number] [place] [address] Oct, [facility] [place] [facility] [address] [id number] [place] [address] Sep, [facility] [place] [facility] [address] [id number] [place] [address] Sep, [facility] [place] [facility] [address] [id number] [address] Sep, [facility] [place] [facility] [address] [facility] [id number] [place] [address] Sep, [facility] [place] [facility] [address] [id number] [place] [address] Sep, [facility] [place] [facility] [address] [id number] [place] [address] Sep, [facility] [place] [facility] [address] [id number] [address] Sep, [facility] [place] [facility] [address] [id number] [place] [address] Sep, [facility] [place] [facility] [address] [id number] [place] [address] Sep, [facility] [place] [facility] [address] [id number] [place] [address] Sep, [facility] [place] [facility] [address] [facility] [id number] [place] [address] Sep, [facility] [place] [facility] [address] [facility] [id number] [place] [address] Aug, [facility] [place] [facility] [address] [id number] [place] [address] Aug, [facility] [address] [id number] [place] [address] Aug, [facility] [place] [facility] [address] [id number] [place] [address] Aug, [facility] [address] [id number] [place] [address] Aug, [facility] [place] [facility] [address] [id number] [place] [address] Aug, [facility] [address] [id number] [place] [address] Aug, [facility] [place] [facility] [address] [id number] [place] [address] Aug, [facility] [place] [facility] [address] [id number] [place] [address] Aug, [facility] [place] [facility] [address] [id number] [place] [address] Aug, [facility] [place] [facility] [address] [id number] [place] [address] 22 Jul, 2012 [facility] [place] [facility] [address] [id number] [place] [address] 20 Jul, 2012 [facility] [place] [facility] [address] [id number] [place] [address] 10 Jul, 2012 [facility] [place] [facility] [address] [id number] [place] [address] 06 Jul, 2012 [facility] [place] [facility] [address] [id number] [place] [address] 30 Jun, 2012 [facility] [place] [facility] [address] [id number] [place] [address] Jun, [facility] [place] [facility] [address] [id number] [place] [address] Jun, [facility] [place] [facility] [address] [id number] [place] [address] Jun, [facility] [place] [facility] [address] [id number] [place] [address] Jun, [facility] [place] [facility] [address] [id number] [place] [address] Jun, [facility] [place] [facility] [address] [id number] [place] [address] Jun, [facility] [place] [facility] [address] [id number] [place] [address] May, [facility] [place] [facility] [address] [id number] [place] [address] May, [facility] [place] [facility] [address] [id number] [place] [address] May, [facility] [place] [facility] [address] [id number] [place] [address] May, [facility] [place] [facility] [address] [id number] [place] [address] May, [facility] [place] [facility] [address] [id number] [place] [address] Apr, [facility] [place] [facility] [address] [id number] [place] [address] Apr, [facility] [place] [facility] [address] [id number] [place] [address] Apr, [facility] [place] [facility] [address] [id number] [place] [address] Apr, [facility] [place] [facility] [address] [id number] [place] [address] Apr, [facility] [place] [facility] [address] [id number] [place] [address] March, [facility] [place] [facility] [address] [id number] [place] [address] March, [facility] [address] [id number] [place] [address] March, [facility] [address] [id number] [place] [address] March, [facility] [address] [id number] [place] [address] March, [facility] [address] [id number] [place] [address] March, [facility] [address] [id number] [place] [address] March, [facility] [address] [id number] [place] [address] March, [facility] [address] [id number] [place] [address] March, [facility] [address] [id number] [place] [address] March, [facility] [address] [id number] [place] [address] 30 Feb, 2012 [facility] [place] [facility] [address] [id number] [place] [address] Feb, [facility] [address] [id number] [place] [address] 26 Feb, 2012 [facility] [place] [facility] [address] [id number] [place] [address] 19 Feb, 2012 [facility] [place] [facility] [address] [id number] [place] [address] 17 Feb, 2012 [facility] [place] [facility] [address] [id number] [place] [address] 17 Feb, 2012 [facility] [place] [facility] [address] [id number] [place] [address] 12 Feb, 2012 [facility] [place] [facility] [address] [id number] [place] [address] Feb, [facility] [place] [facility] [address] [id number] [place] [address] Feb, [facility] [place] [facility] [address] [id number] [place] [address] Jan, [facility] [place] [facility] [address] [id number] [place] [address] Jan, [facility] [place] [facility] [address] [id number] [place] [address] Jan, [facility] [place] [facility] [address] [id number] [place] [address] Jan, [facility] [place] [facility] [address] [id number] [place] [address] Dec, [facility] [place] [facility] [address] [id number] [place] [address] Dec, [facility] [place] [facility] [address] [id number] [place] [address] Nov, [facility] [place] [facility] [address] [id number] [place] [address] Nov, [facility] [place] [facility] [address] [id number] [place] [address] Nov, [facility] [place] [facility] [address] [id number] [place] [address] Nov, [facility] [place] [facility] [address] [id number] [place] [address] Nov, [facility] [place] [facility] [address] [id number] [place] [address] Oct, [facility] [place] [facility] [address] [id number] [place] [address] Oct, [facility] [place] [facility] [address] [id number] [place] [address] Oct, [facility] [address] [facility] [id number] [address] Oct, [facility] [address] [facility] [id number] [address] Oct, [facility] [address] [facility] [id number] [address] Oct, [facility] [address] [facility] [id number] [address] Oct, [facility] [address] [facility] [id number] [place] [address] Oct, [facility] [address] [facility] [id number] [place] [address] Sep, IMMUNIZATIONS No Known Immunizations SOCIAL HISTORY Never Assessed REASON FOR VISIT jail Narc Refill PLAN OF CARE VITAL SIGNS MEDICATIONS Medication Instructions Dosage Frequency Start Date End Date Duration Status Lorazepam 0.5 MG Orally Once a day 1 tablet at betime 24h Apr, 28 days Active Tramadol HCl 50 MG Orally 3 times a day 1 tablet 8h Dec, 28 days Active RESULTS No Results PROCEDURES No Known procedures INSTRUCTIONS MEDICATIONS ADMINISTERED No Known Medications MEDICAL (GENERAL) HISTORY Type Description Date 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
--- OUTSIDE RECORDS SUMMARY | 2019-04-16 15:48 | XMS REPORT ---
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 Name Role Phone SHAHNAZ MARQUEZ Unavailable PROBLEMS Type Condition ICD9-CM Code AMO72-BA Code Onset Dates Condition Status SNOMED Code Problem Reactive depression F32.9 Active 78583650 Problem Anxiety F41.9 Active 30223495 Problem Pharyngeal dysphagia R13.13 Active 28527179757933 Problem Suprapubic catheter Z93.59 Active 981342641 Problem Encounter for suprapubic catheter care Z43.5 Active 829593693 Problem Insomnia G47.00 Active 194922559 Problem Peripheral vascular disease I73.9 Active 251665708 Problem 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 Active 63128991 Problem Paroxysmal atrial fibrillation I48.0 Active 122315598 Problem Hypertension I10 Active 02906957 Problem Other chronic pain G89.29 Active 86140602 Problem Low back pain M54.5 Active 445277895 Problem Coronary artery disease I25.10 Active 21931132 Problem Type 2 diabetes mellitus without complication, without long-term current use of insulin E11.9 Active 407430713 Problem Hyperlipidemia E78.5 Active 81006246 Problem Ventral hernia without obstruction or gangrene K43.9 Active 483628526 ALLERGIES No Information ENCOUNTERS Encounter Location Date Diagnosis [facility] [address] [id number] [address] Oct, Anxiety F41.9 [facility] [id number] [place] [address] Oct, Anxiety F41.9 [facility] [address] [place] [id number] Oct, Other chronic pain G89.29 [facility] [id number] [place] [address] Sep, Other chronic pain G89.29 Via [facility] [address] [place] [id number] Sep, Suprapubic catheter Z93.59 and Cervicalgia M54.2 [facility] [address] [id number], [place] [address] Sep, [facility] [address] [id number], [place] [address] Sep, [facility] [address] [id number], [place] [address] Sep, Via [facility] [address] [place] [id number] Aug, Cystitis N30.90 [facility] [address] [id number], [place] [address] Aug, [facility] [address] [id number], [place] [address] Aug, Other chronic pain G89.29 [facility] [address] [id number], [place] [address] Aug, Via [facility] [address] [place] [id number] Aug, Encounter for suprapubic catheter care Z43.5 [facility] [address] [id number], [place] [address] Jul, Via [facility] [address] [place] [id number] Jul, [facility] [address] [id number], [place] [address] Jul, Other chronic pain G89.29 [facility] [address] [id number], [place] [address] Jul, [facility] [address] [id number], [place] [address] Jul, [facility] [address] [place] [id number] Jun, 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 [place] [address] [facility] [id number], [place] [address] Jun, Other chronic pain G89.29 [place] [id number] [place] [address] Jun, Via [facility] [address] [place] [id number] May, Anxiety F41.9 ; Type 2 diabetes mellitus without complication, without long-term current use of insulin E11.9 ; Hypertension I10 ; Low back pain M54.5 ; Paroxysmal atrial fibrillation I48.0 and 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 [place] [address] [place] [address] May, Other chronic pain G89.29 Via [facility] [address] [place] [id number] May, Low back pain M54.5 [place] [id number] [place] [address] May, [place] [id number] [place] [address] Apr, Other chronic pain G89.29 [place] [id number] [place] [address] Apr, [place] [id number] [place] [address] Apr, [facility] [address] [place] [id number] Apr, Closed compression fracture of L3 lumbar vertebra with routine healing, subsequent encounter S32.030D [facility] [address] [place] [id number] 14 Apr, 2018 Low back pain M54.5 Via [facility] [address] [place] [id number] 12 Apr, 2018 Coccydynia M53.3 [place] [id number] [place] [address] March, [facility] [address], [place] [address] March, Other chronic pain G89.29 [facility] [address]00565100[place], [place] [address] March, [facility] [address]005[address]100[place], [place] [address] March, [facility] [address], [place] [address] Feb, [facility] [address] [place] [address] Feb, Other chronic pain G89.29 [facility] [address] [place] [id number] Feb, Other chronic pain G89.29 and Anxiety F41.9 [facility] [address], [place] [address] Feb, [facility] [address]005[address], [place] [address] Jan, [facility] [id number] [place] [address] Jan, [facility] [address]005[address], [place] [address] Jan, [facility] [address], [place] [address] Jan, [facility] [address] [id number], [place] [address] Dec, Via [facility] 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 [address] [place] [id number] Nov, Status post surgery Z98.890 ; Confused R41.0 ; Anxiety F41.9 and Other chronic pain G89.29 [facility] [address] [id number] [address] Nov, Other chronic pain G89.29 [facility] [address]005[address], [place] [address] Oct, [facility] [id number] [place] [id number] Oct, Other chronic pain G89.29 [facility] [id number], [place] [address] Oct, Anxiety F41.9 [facility] [id number], [place] [address] Sep, Other chronic pain G89.29 [facility] [address] [id number] [address] Sep, [facility] [facility] [address] [place] [id number] Aug, Dysuria R30.0 and Anxiety F41.9 [facility] [address] [facility] [id number], [place] [address] Aug, [facility] [address] [id number][place] [address] Aug, Other chronic pain G89.29 [facility] [id number], [place] [address] Jul, Other chronic pain G89.29 [facility] [id number], [place] [address] Jun, [facility] [id number], [place] [address] Jun, Other chronic pain G89.29 [facility] [address], [place] [address] Jun, [facility] [address], [place] [address] May, Other chronic pain G89.29 [facility] [address], [place] [address] Apr, Other chronic pain G89.29 [facility] [address] [place] [id number] Apr, Reactive depression F32.9 and Pharyngeal dysphagia R13.13 [facility] [address], [place] [address] Apr, Urinary tract infection without hematuria, site unspecified N39.0 [facility] [id number], [place] [address] March, Other chronic pain G89.29 [facility] [id number], [place] [address] Feb, Other chronic pain G89.29 [facility] [id number], [place] [address] Feb, [facility] [id number], [place] [address] Feb, [facility] [address] [place] [id number] Feb, Dysuria R30.0 and Ventral hernia without obstruction or gangrene K43.9 [facility] [address], [place] [address] Jan, Other chronic pain G89.29 [facility] [id number] [place] [id number] Dec, Other chronic pain G89.29 [facility] [address], [place] [address] Nov, Other chronic pain G89.29 [facility] [address] [place] [id number] Nov, Lymphadenitis I88.9 [facility] [address] [place] [address] Nov, Other chronic pain G89.29 [facility] [address] [place] [address] Nov, [facility] [id number] [place] [id number] Nov, Other chronic pain G89.29 [facility] [address] [place] [id number] Oct, Low back pain M54.5 ; Hypertension I10 and Type 2 diabetes mellitus without complication, without long-term current use of insulin E11.9 [facility] [address], [place] [address] Oct, [facility] [address]65[address], [place] [address] Oct, [facility] [address], [place] [address] Oct, [facility] [address], [place] [address] Oct, [facility] [address], [place] [address] Sep, [facility] [address], [place] [address] Sep, [facility] [address], [place] [address] 10 Aug, 2016 Other chronic pain G89.29 [facility] [address] [facility] [id number], [place] [address] Jul, [facility] [address]00565[address], [place] [address] Jul, [facility] [id number] [place] [address] Jul, [facility] [address], [place] [address] Jun, [facility] [address] [place] [address] Jun, [facility] [address] [place] [id number] Jun, Low back pain M54.5 ; Other chronic pain G89.29 and Coronary artery disease I25.10 [facility] [address]00565100[place], [place] [address] Jun, [facility] [address], [place] [address] May, [facility] [address], [place] [address] May, [facility] [address], [place] [address] May, Other chronic pain G89.29 [facility] [address], [place] [address] May, [facility] [address], [place] [address] Apr, [facility] [address], [place] [address] 17 Apr, 2016 Acute cystitis without hematuria N30.00 [facility] [address] [place] [address] 16 Apr, 2016 Acute cystitis without hematuria N30.00 ; Coronary artery disease I25.10 ; Low back pain M54.5 and Other chronic pain G89.29 [facility] [id number] [place] [address] Apr, Other chronic pain G89.29 [facility] [id number] [place] [address] March, Other chronic pain G89.29 [facility] [id number] [place] [address] Feb, [facility] [id number] [place] [address] Feb, Arthritis M19.90 [facility] [id number] [place] [address] Feb, [facility] [id number] [place] [address] Jan, [facility] [id number] [place] [address] Jan, [facility] [id number] [place] [address] Jan, Other chronic pain G89.29 [facility] [id number] [place] [address] Jan, Hypertension I10 ; Coronary artery disease I25.10 and Insomnia G47.00 [facility] [id number] [place] [address] Jan, [facility] [id number] [place] [address] 29 Dec, 2015 Right hip pain M25.551 [facility] [id number] [place] [address] Dec, [facility] [id number] [place] [address] Dec, [facility] [address], [place] [address] Dec, [facility] [address], [place] [address] Dec, Other chronic pain G89.29 [facility] [id number] [place] [address] Dec, [facility] [id number] [place] [address] Nov, [facility] [id number] [place] [address] Nov, Other chronic pain G89.29 [facility] [id number] [place] [address] Nov, Right hip pain M25.551 and Coronary artery disease I25.10 [facility] [address], [place] [address] Nov, Other chronic pain G89.29 [facility] [id number] [place] [address] Oct, [facility] [address], [place] [address] Oct, [facility] [address], [place] [address] Sep, [facility] [address], [place] [address] Sep, [facility] [id number] [place] [address] Aug, [facility] [address], [place] [address] 15 Aug, 2015 Hypertension I10 ; Coronary artery disease I25.10 and Arthritis M19.90 [facility] [id number] [place] [address] Jun, [facility] [address] [id number] [place] [address] Jun, Essential hypertension, benign 401.1 ; Other chronic pain 338.29 and Chronic airway obstruction, not elsewhere classified [facility] [address] [id number] [place] [address] Jun, [facility] [address] [id number] [place] [address] Jun, [facility] [address] [facility] [id number] [place] [address] Jun, [facility] [address] [facility] [id number] [place] [address] May, [facility] [address] [place] [address] May, [facility] [id number] [place] [address] Apr, [facility] [id number] [place] [address] Apr, [facility] [id number] [place] [address] Apr, [facility] [id number] [place] [address] March, [facility] [address] [facility] [id number] [place] [address] March, [facility] [address] [facility] [id number] [place] [address] March, [facility] [address] [facility] [id number] [place] [address] March, [facility] [id number] [address] March, Sialadenitis 527.2 [facility] [place] [facility] [address] [id number] [place] [address] Feb, [facility] [place] [facility] [address] [id number] [place] [address] Feb, [facility] [place] [facility] [address] [id number] [place] [address] Feb, [facility] [place] [facility] [address] [id number] [place] [address] 14 Feb, 2015 [facility] [place] [facility] [address] [id number] [place] [address] Feb, [facility] [place] [facility] [address] [id number] [place] [address] Jan, [facility] [place] [facility] [address] [facility] [id number] [place] [address] Jan, [facility] [place] [facility] [address] [facility] [id number] [place] [address] Jan, [facility] [place] [facility] [address] [facility] [id number] [place] [address] Jan, [facility] [place] [facility] [address] [facility] [id number] [place] [address] Jan, [facility] [place] [facility] [address] [facility] [id number] [place] [address] Jan, [facility] [place] [facility] [address] [facility] [id number] [place] [address] Dec, 2014 [facility] [place] [facility] [address] [id number] [place] [address] Dec, [facility] [place] [facility] [address] [id number] [place] [address] Dec, [facility] [place] [facility] [address] [facility] [id number] [place] [address] Dec, 2014 [facility] [place] [facility] [address] [facility] [id number], [place] [address] Dec, [facility] [place] [facility] [address] [id number] [place] [address] Dec, [facility] [place] [facility] [address] [id number] [place] [address] Nov, [facility] [place] [facility] [address] [id number] [place] [address] Nov, [facility] [place] [facility] [address] [id number] [place] [address] Nov, [facility] [place] [facility] [address] [id number] [place] [address] Nov, [facility] [place] [facility] [address] [id number] [place] [address] Nov, [facility] [place] [facility] [address] [id number], [place] [address] Nov, [facility] [place] [facility] [address] [id number] [place] [address] Nov, [facility] [place] [facility] [address] [id number] [place] [address] Nov, [facility] [place] [facility] [address] [id number] [place] [address] Nov, [facility] [place] [facility] [address] [id number], [place] [address] Nov, [facility] [place] [facility] [address] [id number], [place] [address] Nov, [facility] [place] [facility] [address] [id number], [place] [address] Nov, [facility] [place] [facility] [address] [id number], [place] [address] Nov, [facility] [place] [facility] [address] [id number], [place] [address] Nov, [facility] [place] [facility] [address] [id number] [place] [address] Oct, [facility] [place] [facility] [address] [id number] [place] [address] Oct, [facility] [place] [facility] [address] [id number] [place] [address] Oct, [facility] [place] [facility] [address] [id number] [place] [address] 18 Oct, 2014 [facility] [place] [facility] [address] [id number] [place] [address] 18 Oct, 2014 [facility] [place] [facility] [address] [id number] [place] [address] Oct, [facility] [place] [facility] [address] [id number] [place] [address] Oct, [facility] [place] [facility] [address] [id number] [place] [address] Oct, [facility] [place] [facility] [address] [id number] [place] [address] Oct, [facility] [place] [facility] [address] [id number] [place] [address] Sep, [facility] [place] [facility] [address] [id number] [place] [address] Sep, [facility] [place] [facility] [address] [id number] [place] [address] Sep, [facility] [place] [facility] [address] [id number] [place] [address] Sep, [facility] [place] [facility] [address] [id number] [place] [address] Sep, [facility] [place] [facility] [address] [id number] [place] [address] Sep, [facility] [place] [facility] [address] [id number] [place] [address] Sep, [facility] [place] [facility] [address] [id number] [place] [address] Sep, [facility] [place] [facility] [address] [id number] [place] [address] Sep, [facility] [place] [facility] [address] [id number] [place] [address] Sep, [facility] [place] [facility] [address] [id number] [place] [address] Sep, [facility] [place] [facility] [address] [id number] [place] [address] Sep, [facility] [place] [facility] [address] [id number] [place] [address] Aug, [facility] [place] [facility] [address] [id number] [place] [address] Aug, [facility] [place] [facility] [address] [id number], [place] [address] Aug, [facility] [place] [facility] [address] [id number] [place] [address] Aug, [facility] [place] [facility] [address] [id number] [place] [address] Aug, [facility] [place] [facility] [address] [id number], [place] [address] Aug, [facility] [place] [facility] [address] [id number], [place] [address] Aug, [facility] [place] [facility] [address] [id number] [place] [address] Aug, [facility] [place] [facility] [address] [id number], [place] [address] 30 Jul, 2014 [facility] [place] [facility] [address] [id number] [place] [address] 30 Jul, 2014 [facility] [place] [facility] [address] [id number] [place] [address] 30 Jul, 2013 [facility] [place] [facility] [address] [id number] [place] [address] 30 Jul, 2013 [facility] [place] [facility] [address] [id number] [place] [address] 25 Jul, 2013 [facility] [place] [facility] [address] [id number] [place] [address] 25 Jul, 2013 [facility] [place] [facility] [address] [id number] [place] [address] 15 Jul, 2013 [facility] [place] [facility] [address] [id number] [place] [address] 15 Jul, 2013 [facility] [place] [facility] [address] [id number] [place] [address] 11 Jul, 2014 [facility] [place] [facility] [address] [id number] [place] [address] Jul, 2013 [facility] [place] [facility] [address] [id number] [place] [address] Jun, [facility] [place] [facility] [address] [id number] [place] [address] Jun, [facility] [place] [facility] [address] [id number] [place] [address] Jun, [facility] [place] [facility] [address] [id number] [place] [address] Jun, [facility] [place] [facility] [address] [id number] [place] [address] Jun, [facility] [place] [facility] [address] [id number] [place] [address] Jun, [facility] [place] [facility] [address] [id number] [place] [address] Jun, [facility] [place] [facility] [address] [id number] [place] [address] Jun, [facility] [place] [facility] [address] [id number] [place] [address] Jun, [facility] [place] [facility] [address] [id number] [place] [address] Jun, [facility] [place] [facility] [address] [id number] [place] [address] Jun, [facility] [place] [facility] [address] [id number] [place] [address] Jun, [facility] [place] [facility] [address] [id number] [place] [address] Jun, [facility] [place] [facility] [address] [id number] [place] [address] Jun, [facility] [place] [facility] [address] [id number] [place] [address] Jun, [facility] [place] [facility] [address] [id number] [place] [address] Jun, [facility] [place] [facility] [address] [id number] [place] [address] Jun, [facility] [place] [facility] [address] [id number] [place] [address] Jun, [facility] [place] [facility] [address] [id number] [place] [address] Jun, [facility] [place] [facility] [address] [id number] [place] [address] Jun, [facility] [place] [facility] [address] [id number] [place] [address] Jun, [facility] [place] [facility] [address] [id number] [place] [address] Jun, [facility] [place] [facility] [address] [id number] [place] [address] May, [facility] [place] [facility] [address] [id number] [place] [address] May, [facility] [place] [facility] [address] [id number] [place] [address] May, [facility] [place] [facility] [address] [id number] [place] [address] May, [facility] [place] [facility] [address] [id number] [place] [address] May, [facility] [place] [facility] [address] [id number] [place] [address] May, [facility] [place] [facility] [address] [id number] [place] [address] May, [facility] [place] [facility] [address] [id number] [place] [address] May, [facility] [place] [facility] [address] [id number] [place] [address] May, [facility] [place] [facility] [address] [id number] [place] [address] May, [facility] [place] [facility] [address] [id number] [place] [address] May, [facility] [place] [facility] [address] [id number] [place] [address] May, [facility] [place] [facility] [address] [id number] [place] [address] May, [facility] [place] [facility] [address] [id number] [place] [address] Apr, [facility] [place] [facility] [address] [id number] [place] [address] Apr, [facility] [place] [facility] [address] [id number] [place] [address] Apr, [facility] [place] [facility] [address] [id number] [place] [address] Apr, [facility] [place] [facility] [address] [id number] [place] [address] Apr, [facility] [place] [facility] [address] [id number] [place] [address] Apr, [facility] [place] [facility] [address] [id number] [place] [address] Apr, [facility] [place] [facility] [address] [id number] [place] [address] Apr, [facility] [place] [facility] [address] [id number] [place] [address] Apr, [facility] [place] [facility] [address] [id number] [place] [address] March, [facility] [place] [facility] [address] [id number] [place] [address] March, [facility] [place] [facility] [address] [id number] [place] [address] March, [facility] [address] [id number] [place] [address] March, [facility] [place] [facility] [address] [id number] [place] [address] March, [facility] [address] [id number] [place] [address] March, [facility] [place] [facility] [address] [id number] [place] [address] March, [facility] [place] [facility] [address] [id number] [place] [address] March, [facility] [place] [facility] [address] [id number] [place] [address] March, [facility] [place] [facility] [address] [id number] [place] [address] March, [facility] [place] [facility] [address] [id number] [place] [address] March, [facility] [place] [facility] [address] [id number] [place] [address] March, [facility] [place] [facility] [address] [id number] [place] [address] March, [facility] [place] [facility] [address] [id number] [place] [address] March, [facility] [place] [facility] [address] [id number] [place] [address] March, [facility] [place] [facility] [address] [id number] [place] [address] March, [facility] [place] [facility] [address] [id number] [place] [address] March, [facility] [place] [facility] [address] [id number] [place] [address] March, [facility] [place] [facility] [address] [id number] [place] [address] March, [facility] [place] [facility] [address] [id number] [place] [address] March, [facility] [place] [facility] [address] [id number] [place] [address] Feb, [facility] [place] [facility] [address] [id number] [place] [address] Feb, [facility] [place] [facility] [address] [id number] [place] [address] Feb, [facility] [place] [facility] [address] [id number] [place] [address] Feb, [facility] [place] [facility] [address] [id number] [place] [address] Feb, [facility] [place] [facility] [address] [id number] [place] [address] Feb, [facility] [place] [facility] [address] [id number] [address] Feb, [facility] [place] [facility] [address] [id number] [place] [address] Feb, [facility] [place] [facility] [address] [id number] [place] [address] Jan, [facility] [place] [facility] [address] [facility] [id number] [place] [address] Jan, [facility] [place] [facility] [address] [id number] [place] [address] Jan, [facility] [place] [facility] [address] [id number] [place] [address] Jan, [facility] [place] [facility] [address] [facility] [id number] [place] [address] Jan, [facility] [place] [facility] [address] [facility] [id number] [place] [address] Jan, [facility] [place] [facility] [address] [facility] [id number] [place] [address] Jan, [facility] [place] [facility] [address] [id number] [place] [address] Jan, [facility] [place] [facility] [address] [facility] [id number] [place] [address] Jan, [facility] [place] [facility] [address] [id number] [place] [address] Jan, [facility] [place] [facility] [address] [id number] [place] [address] Dec, [facility] [place] [facility] [address] [id number] [place] [address] Dec, [facility] [place] [facility] [address] [id number] [place] [address] Dec, [facility] [place] [facility] [address] [facility] [id number], [place] [address] 2013 [facility] [place] [facility] [address] [id number] [place] [address] 2013 [facility] [place] [facility] [address] [id number] [place] [address] Dec, [facility] [place] [facility] [address] [id number] [place] [address] Dec, [facility] [place] [facility] [address] [id number] [place] [address] Dec, [facility] [place] [facility] [address] [id number] [place] [address] Nov, [facility] [place] [facility] [address] [id number] [place] [address] Nov, [facility] [place] [facility] [address] [id number] [place] [address] Nov, [facility] [place] [facility] [address] [id number] [place] [address] Nov, [facility] [place] [facility] [address] [id number] [place] [address] Nov, [facility] [place] [facility] [address] [id number] [place] [address] Nov, [facility] [place] [facility] [address] [id number] [place] [address] Nov, [facility] [place] [facility] [address] [id number] [place] [address] Nov, [facility] [place] [facility] [address] [id number] [place] [address] Nov, [facility] [place] [facility] [address] [id number] [place] [address] Nov, [facility] [place] [facility] [address] [id number] [place] [address] Nov, [facility] [place] [facility] [address] [id number], [place] [address] 15 Nov, 2013 [facility] [address] [id number] [place] [address] 15 Nov, 2013 [facility] [address] [id number] [place] [address] 30 Oct, 2013 [facility] [address] [facility] [id number] [place] [address] Oct, [facility] [address] [id number] [place] [address] Oct, [facility] [address] [id number] [place] [address] Oct, [facility] [address] [id number] [place] [address] Oct, [facility] [address] [id number] [place] [address] Oct, [facility] [address] [id number] [place] [address] Oct, [facility] [address] [id number] [place] [address] Oct, [facility] [address] [facility] [id number] [place] [address] Oct, [facility] [address] [id number] [place] [address] Oct, [facility] [address] [id number], [place] [address] Oct, [facility] [address] [id number] [place] [address] Oct, [facility] [address] [facility] [id number] [place] [address] Oct, [facility] [address] [facility] [id number] [place] [address] Oct, [facility] [place] [facility] [address] [id number] [place] [address] 14 Sep, 2013 [facility] [place] [facility] [address] [id number] [place] [address] 14 Sep, 2013 [facility] [place] [facility] [address] [id number] [place] [address] 05 Sep, 2013 [facility] [place] [facility] [address] [id number] [place] [address] 05 Sep, 2013 [facility] [place] [facility] [address] [id number] [place] [address] Sep, [facility] [place] [facility] [address] [id number] [place] [address] Sep, [facility] [place] [facility] [address] [id number] [place] [address] Sep, [facility] [place] [facility] [address] [id number] [place] [address] Sep, [facility] [place] [facility] [address] [id number] [place] [address] Sep, [facility] [place] [facility] [address] [id number] [place] [address] Sep, [facility] [place] [facility] [address] [id number] [place] [address] Aug, [facility] [place] [facility] [address] [id number] [place] [address] Aug, [facility] [place] [facility] [address] [id number] [place] [address] Aug, [facility] [place] [facility] [address] [id number] [place] [address] Aug, [facility] [place] [facility] [address] [id number] [place] [address] Aug, [facility] [place] [facility] [address] [id number] [place] [address] 23 Aug, 2013 [facility] [place] [facility] [address] [id number] [place] [address] 23 Aug, 2012 [facility] [place] [facility] [address] [id number] [place] [address] 23 Aug, 2013 [facility] [place] [facility] [address] [id number] [place] [address] Aug, [facility] [place] [facility] [address] [id number] [place] [address] 22 Aug, 2013 [facility] [place] [facility] [address] [id number] [place] [address] 18 Aug, 2013 [facility] [place] [facility] [address] [id number] [place] [address] 18 Aug, 2013 [facility] [place] [facility] [address] [id number] [place] [address] 18 Aug, 2013 [facility] [place] [facility] [address] [id number], [place] [address] 18 Aug, 2013 [facility] [place] [facility] [address] [id number] [place] [address] 17 Aug, 2013 [facility] [place] [facility] [address] [id number], [place] [address] 14 Aug, 2013 [facility] [place] [facility] [address] [id number], [place] [address] 14 Aug, 2013 [facility] [place] [facility] [address] [id number], [place] [address] Aug, [facility] [place] [facility] [address] [id number] [place] [address] 20 Jul, 2013 [facility] [place] [facility] [address] [id number], [place] [address] 19 Jul, 2013 [facility] [place] [facility] [address] [id number], [place] [address] 18 Jul, 2013 [facility] [place] [facility] [address] [id number] [place] [address] Jul, [facility] [place] [facility] [address] [id number] [place] [address] Jul, [facility] [place] [facility] [address] [id number] [place] [address] Jun, [facility] [place] [facility] [address] [id number] [place] [address] Jun, [facility] [place] [facility] [address] [id number] [place] [address] Jun, [facility] [place] [facility] [address] [id number] [place] [address] Jun, [facility] [place] [facility] [address] [id number] [place] [address] Jun, [facility] [place] [facility] [address] [id number] [place] [address] Jun, [facility] [place] [facility] [address] [id number] [place] [address] Jun, [facility] [place] [facility] [address] [id number] [place] [address] Jun, [facility] [place] [facility] [address] [id number] [place] [address] Jun, [facility] [place] [facility] [address] [id number] [place] [address] Jun, [facility] [place] [facility] [address] [id number] [place] [address] May, [facility] [place] [facility] [address] [id number] [place] [address] May, [facility] [place] [facility] [address] [id number] [place] [address] May, [facility] [place] [facility] [address] [id number] [place] [address] May, [facility] [place] [facility] [address] [id number] [place] [address] May, [facility] [address] [id number] [place] [address] May, [facility] [address] [id number] [place] [address] May, [facility] [address] [id number] [place] [address] May, [facility] [address] [id number] [place] [address] May, [facility] [address] [id number] [place] [address] Apr, [facility] [address] [id number] [place] [address] Apr, [facility] [address] [id number] [place] [address] Apr, [facility] [address] [id number] [place] [address] Apr, [facility] [address] [id number] [place] [address] Apr, [facility] [address] [id number] [place] [address] Apr, [facility] [address] [id number] [place] [address] Apr, [facility] [place] [facility] [address] [id number] [place] [address] March, [facility] [place] [facility] [address] [id number] [place] [address] Feb, [facility] [place] [facility] [address] [id number] [place] [address] Feb, [facility] [place] [facility] [address] [id number] [place] [address] 12 Feb, 2013 [facility] [address] [id number] [place] [address] 28 Jan, 2013 [facility] [place] [facility] [address] [id number] [place] [address] 21 Jan, 2013 [facility] [address] [id number] [place] [address] 19 Jan, 2013 [facility] [place] [facility] [address] [id number] [place] [address] 14 Jan, 2013 [facility] [address] [id number] [place] [address] 12 Jan, 2013 [facility] [address] [id number] [place] [address] 08 Jan, 2013 [facility] [address] [id number] [place] [address] 07 Jan, 2013 [facility] [place] [facility] [address] [id number] [place] [address] 04 Jan, 2013 [facility] [place] [facility] [address] [id number] [place] [address] 28 Dec, 2012 [facility] [place] [facility] [address] [id number] [place] [address] 25 Dec, 2012 [facility] [address] [id number] [place] [address] 13 Dec, 2012 [facility] [place] [facility] [address] [id number] [place] [address] 11 Dec, 2012 [facility] [place] [facility] [address] [id number] [place] [address] 07 Dec, 2012 [facility] [place] [facility] [address] [id number] [place] [address] 06 Dec, 2012 [facility] [place] [facility] [address] [facility] [id number] [place] [address] 05 Dec, 2012 [facility] [place] [facility] [address] [id number] [place] [address] 31 Nov, 2012 [facility] [address] [id number] [place] [address] 24 Nov, 2012 [facility] [place] [facility] [address] [id number] [place] [address] 18 Nov, 2012 [facility] [address] [id number] [place] [address] 15 Nov, 2012 [facility] [address] [id number] [place] [address] Nov, [facility] [address] [id number] [place] [address] Nov, [facility] [address] [id number] [place] [address] Nov, [facility] [address] [id number] [place] [address] Oct, [facility] [address] [id number] [place] [address] Oct, [facility] [address] [id number] [place] [address] Oct, [facility] [address] [id number] [place] [address] Oct, [facility] [place] [facility] [address] [id number] [place] [address] Oct, [facility] [place] [facility] [address] [id number] [place] [address] Oct, [facility] [place] [facility] [address] [id number] [place] [address] Oct, [facility] [place] [facility] [address] [id number] [place] [address] 07 Oct, 2012 [facility] [place] [facility] [address] [id number], [place] [address] Oct, [facility] [place] [facility] [address] [id number] [place] [address] Oct, [facility] [place] [facility] [address] [id number] [place] [address] Oct, [facility] [place] [facility] [address] [id number] [place] [address] Oct, [facility] [place] [facility] [address] [id number], [place] [address] Sep, [facility] [place] [facility] [address] [id number] [place] [address] Sep, [facility] [place] [facility] [address] [id number], [place] [address] Sep, [facility] [place] [facility] [address] [facility] [facility] [id number], [place] [address] Sep, [facility] [place] [facility] [address] [id number], [place] [address] Sep, [facility] [place] [facility] [address] [id number], [place] [address] Sep, [facility] [place] [facility] [address] [id number], [place] [address] Sep, [facility] [place] [facility] [address] [id number], [place] [address] Sep, [facility] [place] [facility] [address] [id number], [place] [address] Sep, [facility] [place] [facility] [address] [id number], [place] [address] Sep, [facility] [place] [facility] [address] [facility] [id number], [place] [address] Sep, [facility] [place] [facility] [address] [facility] [facility] [id number], [place] [address] Aug, [facility] [place] [facility] [address] [id number] [place] [address] Aug, [facility] [address] [id number] [place] [address] Aug, [facility] [place] [facility] [address] [id number] [place] [address] Aug, [facility] [address] [id number] [place] [address] Aug, [facility] [place] [facility] [address] [id number] [place] [address] Aug, [facility] [address] [id number] [place] [address] Aug, [facility] [place] [facility] [address] [id number] [place] [address] Aug, [facility] [place] [facility] [address] [id number] [place] [address] Aug, [facility] [place] [facility] [address] [id number] [place] [address] Aug, [facility] [place] [facility] [address] [id number] [place] [address] 22 Jul, 2012 [facility] [place] [facility] [address] [id number] [place] [address] 20 Jul, 2012 [facility] [place] [facility] [address] [id number] [place] [address] 10 Jul, 2012 [facility] [place] [facility] [address] [id number] [place] [address] 06 Jul, 2012 [facility] [place] [facility] [address] [id number] [place] [address] 30 Jun, 2012 [facility] [place] [facility] [address] [id number] [place] [address] Jun, [facility] [place] [facility] [address] [id number] [place] [address] Jun, [facility] [place] [facility] [address] [id number] [place] [address] Jun, [facility] [place] [facility] [address] [id number] [place] [address] Jun, [facility] [place] [facility] [address] [id number] [place] [address] Jun, [facility] [place] [facility] [address] [id number] [place] [address] Jun, [facility] [place] [facility] [address] [id number] [place] [address] May, [facility] [place] [facility] [address] [id number] [place] [address] May, [facility] [place] [facility] [address] [id number] [place] [address] May, [facility] [place] [facility] [address] [id number] [place] [address] May, [facility] [place] [facility] [address] [id number] [place] [address] May, [facility] [place] [facility] [address] [id number] [place] [address] Apr, [facility] [place] [facility] [address] [id number] [place] [address] Apr, [facility] [place] [facility] [address] [id number] [place] [address] Apr, [facility] [place] [facility] [address] [id number] [place] [address] Apr, [facility] [place] [facility] [address] [id number] [place] [address] Apr, [facility] [place] [facility] [address] [id number] [place] [address] March, [facility] [place] [facility] [address] [id number] [place] [address] March, [facility] [address] [id number] [place] [address] March, [facility] [address] [id number] [place] [address] March, [facility] [address] [id number] [place] [address] March, [facility] [address] [id number] [place] [address] March, [facility] [address] [id number] [place] [address] March, [facility] [address] [id number] [place] [address] March, [facility] [address] [id number] [place] [address] March, [facility] [address] [id number] [place] [address] March, [facility] [address] [id number] [place] [address] 30 Feb, 2012 [facility] [place] [facility] [address] [id number] [place] [address] Feb, [facility] [address] [id number] [place] [address] 26 Feb, 2012 [facility] [place] [facility] [address] [id number] [place] [address] 19 Feb, 2012 [facility] [place] [facility] [address] [id number] [place] [address] 17 Feb, 2012 [facility] [place] [facility] [address] [id number] [place] [address] 17 Feb, 2012 [facility] [place] [facility] [address] [id number] [place] [address] 12 Feb, 2012 [facility] [place] [facility] [address] [id number] [place] [address] Feb, [facility] [place] [facility] [address] [id number] [place] [address] Feb, [facility] [place] [facility] [address] [id number] [place] [address] Jan, [facility] [place] [facility] [address] [id number] [place] [address] Jan, [facility] [place] [facility] [address] [id number] [place] [address] Jan, [facility] [place] [facility] [address] [id number] [place] [address] Jan, [facility] [place] [facility] [address] [id number] [place] [address] Dec, [facility] [place] [facility] [address] [id number] [place] [address] Dec, [facility] [place] [facility] [address] [id number] [place] [address] Nov, [facility] [place] [facility] [address] [id number] [place] [address] Nov, [facility] [place] [facility] [address] [id number] [place] [address] Nov, [facility] [place] [facility] [address] [id number] [place] [address] Nov, [facility] [place] [facility] [address] [id number] [place] [address] Nov, [facility] [place] [facility] [address] [id number] [place] [address] Oct, [facility] [place] [facility] [address] [id number] [place] [address] Oct, [facility] [place] [facility] [address] [id number] [place] [address] Oct, [facility] [address] [facility] [id number], [place] [address] Oct, [facility] [address] [facility] [id number], [place] [address] Oct, [facility] [address] [facility] [id number], [place] [address] Oct, [facility] [address] [facility] [id number], [place] [address] Oct, [facility] [address] [facility] [id number], [place] [address] Oct, [facility] [address] [facility] [id number], [place] [address] Sep, IMMUNIZATIONS No Known Immunizations SOCIAL HISTORY Never Assessed REASON FOR VISIT [facility] ref[facility] PLAN OF CARE VITAL SIGNS MEDICATIONS Medication Instructions Dosage Frequency Start Date End Date Duration Status Lorazepam 0.5 MG Orally Once a day 1 tablet at betime 24h Apr, 28 days Active RESULTS No Results PROCEDURES No Known procedures INSTRUCTIONS MEDICATIONS ADMINISTERED No Known Medications MEDICAL (GENERAL) HISTORY Type Description Date 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 Surgical History No Surgical history information Hospitalization History [facility]- Urosepsis, abd pain and fever, discharged 11/27/2017 11/26/2017 Hospitalization History [facility]- Went Unrepsonsive, Hit head 2017 Hospitalization History [facility]- Back Pain 05/05/2018
--- OUTSIDE RECORDS SUMMARY | 2019-04-16 15:49 | XMS REPORT ---
Author Author SHAHNAZ MARQUEZ [facility] Address [address] [place] [address] Care Team Providers Care Assistant Finance Manager Name Role Phone SHAHNAZ MARQUEZ Unavailable PROBLEMS Type Condition ICD9-CM Code [id number] Code Onset Dates Condition Status SNOMED Code Problem Reactive depression F32.9 Active 16904288 Problem Anxiety F41.9 Active 72429098 Problem Pharyngeal dysphagia R13.13 Active 71066978277671 Problem Suprapubic catheter Z93.59 Active 477043570 Problem Encounter for suprapubic catheter care Z43.5 Active 037654007 Problem Insomnia G47.00 Active 135590336 Problem Peripheral vascular disease I73.9 Active 733938199 Problem 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 Active 28130116 Problem Paroxysmal atrial fibrillation I48.0 Active 436417847 Problem Hypertension I10 Active 59470104 Problem Other chronic pain G89.29 Active 18949054 Problem Low back pain M54.5 Active 217566679 Problem Coronary artery disease I25.10 Active 95064977 Problem Type 2 diabetes mellitus without complication, without long-term current use of insulin E11.9 Active 923836577 Problem Hyperlipidemia E78.5 Active 58330720 Problem Ventral hernia without obstruction or gangrene K43.9 Active 579608891 ALLERGIES No Information ENCOUNTERS Encounter Location Date Diagnosis [facility] [id number] [address] Oct, Anxiety F41.9 [facility] [id number] [place] [address] Oct, Anxiety F41.9 [facility] [place] [address] [place] [id number] Oct, Other chronic pain G89.29 [facility] [id number] [place] [address] Sep, Other chronic pain G89.29 [facility] [address] [place] [id number] Sep, Suprapubic catheter Z93.59 and Cervicalgia M54.2 [facility] [address] [id number] [address] Sep, [facility] [address] [id number] [place] [address] Sep, [facility] [address] [id number] [place] [address] Sep, [facility] [address] [place] [id number] Aug, Cystitis N30.90 [facility] [address] [id number] [address] Aug, [facility] [address] [id number] [place] [address] Aug, Other chronic pain G89.29 [facility] [address] [id number] [place] [address] Aug, [facility] [address] [place] [id number] Aug, Encounter for suprapubic catheter care Z43.5 [facility] [address] [id number] [place] [address] Jul, [facility] [address] [place] [id number] Jul, [facility] [address] [id number] [place] [address] Jul, Other chronic pain G89.29 [facility] [address] [id number] [place] [address] Jul, [facility] [address] [id number] [place] [address] Jul, [facility] [address] [place] [id number] Jun, 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 [address] [facility] [id number] [address] Jun, Other chronic pain G89.29 [place] [id number] [place] [address] Jun, [facility] [address] [place] [id number] May, Anxiety F41.9 ; Type 2 diabetes mellitus without complication, without long-term current use of insulin E11.9 ; Hypertension I10 ; Low back pain M54.5 ; Paroxysmal atrial fibrillation I48.0 and 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 [place] [address] [place] [address] May, Other chronic pain G89.29 [facility] [address] [place] [id number] May, Low back pain M54.5 [place] [id number] [place] [address] May, [place] [id number] [place] [address] Apr, Other chronic pain G89.29 [place] [id number] [place] [address] Apr, [place] [address] [place] [address] Apr, [facility] [address] [place] [id number] Apr, Closed compression fracture of L3 lumbar vertebra with routine healing, subsequent encounter S32.030D [facility] [address] [place] [id number] 14 Apr, 2018 Low back pain M54.5 [facility] [address] [place] [id number] 12 Apr, 2018 Coccydynia M53.3 [place] [id number] [place] [address] March, [facility] [address] [address] March, Other chronic pain G89.29 [facility] [address] [address] March, [facility] [address] [address] March, [facility] [address] [address] Feb, [facility] [address] [place] [address] Feb, Other chronic pain G89.29 [facility] [address] [place] [id number] Feb, Other chronic pain G89.29 and Anxiety F41.9 [facility] [address] [address] Feb, [facility] [address] [address] Jan, [facility] [id number] [place] [address] Jan, [facility] [address] [address] Jan, [facility] [address] [address] Jan, [facility] [id number] [address] Dec, [facility] [address] [place] [id number] Dec, Peripheral vascular disease I73.9 ; 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 [id number] [address] Nov, Anxiety F41.9 [facility] [id number] [address] Nov, [facility] [id number] [place] [id number] Nov, Anxiety F41.9 [facility] [address] [place] [id number] Nov, Status post surgery Z98.890 ; Confused R41.0 ; Anxiety F41.9 and Other chronic pain G89.29 [facility] [address] [id number] [id number] Nov, Other chronic pain G89.29 [facility] [address] [address] Oct, [facility] [id number] [place] [id number] Oct, Other chronic pain G89.29 [facility] [id number] [address] Oct, Anxiety F41.9 [facility] [id number] [place] [address] Sep, Other chronic pain G89.29 [facility] [address] [id number] [address] Sep, [facility] [address] [place] [id number] Aug, Dysuria R30.0 and Anxiety F41.9 [facility] [address] [facility] [id number] [place] [address] Aug, [facility] [address] [id number] [place] [id number] Aug, Other chronic pain G89.29 [facility] [id number] [address] Jul, Other chronic pain G89.29 [facility] [id number] [place] [id number] Jun, [facility] [id number] [place] [address] Jun, Other chronic pain G89.29 [facility] [address] [address] Jun, [facility] [address] [address] May, Other chronic pain G89.29 [facility] [address] [address] Apr, Other chronic pain G89.29 [facility] [address] [place] [id number] Apr, Reactive depression F32.9 and Pharyngeal dysphagia R13.13 [facility] [address] [address] Apr, Urinary tract infection without hematuria, site unspecified N39.0 [facility] [id number] [address] March, Other chronic pain G89.29 [facility] [id number] [address] Feb, Other chronic pain G89.29 [facility] [id number] [address] Feb, [facility] [id number] [place] [id number] Feb, [facility] [address] [place] [id number] Feb, Dysuria R30.0 and Ventral hernia without obstruction or gangrene K43.9 [facility] [address] [address] Jan, Other chronic pain G89.29 [facility] [id number] [place] [id number] Dec, Other chronic pain G89.29 [facility] [address] [address] Nov, Other chronic pain G89.29 [facility] [address] [place] [id number] Nov, Lymphadenitis I88.9 [facility] [address] [place] [address] Nov, Other chronic pain G89.29 [facility] [id number] [place] [address] Nov, [facility] [id number] [place] [id number] Nov, Other chronic pain G89.29 [facility] [address] [place] [id number] Oct, Low back pain M54.5 ; Hypertension I10 and Type 2 diabetes mellitus without complication, without long-term current use of insulin E11.9 [facility] [address] [address] Oct, [facility] [address] [address] Oct, [facility] [address] [address] Oct, [facility] [address] [address] Oct, [facility] [address] [address] Sep, [facility] [address] [address] Sep, [facility] [address] [address] 10 Aug, 2016 Other chronic pain G89.29 [facility] [address] [facility] [id number] [address] Jul, [facility] [address] [address] Jul, [facility] [id number] [place] [address] Jul, [facility] [address] [address] Jun, [facility] [id number] [place] [address] Jun, [facility] [place] [address] [place] [id number] Jun, Low back pain M54.5 ; Other chronic pain G89.29 and Coronary artery disease I25.10 [facility] [address] [address] Jun, [facility] [address] [address] May, [facility] [address] [address] May, [facility] [address] [address] May, Other chronic pain G89.29 [facility] [address] [address] May, [facility] [address] [address] Apr, [facility] [address] [address] 17 Apr, 2016 Acute cystitis without hematuria N30.00 [facility] [address] [place] [address] 16 Apr, 2016 Acute cystitis without hematuria N30.00 ; Coronary artery disease I25.10 ; Low back pain M54.5 and Other chronic pain G89.29 [facility] [id number] [place] [address] Apr, Other chronic pain G89.29 [facility] [id number] [place] [address] March, Other chronic pain G89.29 [facility] [id number] [place] [address] Feb, [facility] [id number] [place] [address] Feb, Arthritis M19.90 [facility] [id number] [place] [address] Feb, [facility] [id number] [place] [address] Jan, [facility] [id number] [place] [address] Jan, [facility] [id number] [place] [address] Jan, Other chronic pain G89.29 [facility] [id number] [place] [address] Jan, Hypertension I10 ; Coronary artery disease I25.10 and Insomnia G47.00 [facility] [id number] [place] [address] Jan, [facility] [id number] [place] [address] 29 Dec, 2015 Right hip pain M25.551 [facility] [id number] [place] [address] Dec, [facility] [id number] [place] [address] Dec, [facility] [address] [address] Dec, [facility] [address] [address] Dec, Other chronic pain G89.29 [facility] [id number] [place] [address] Dec, [facility] [id number] [place] [address] Nov, [facility] [id number] [place] [address] Nov, Other chronic pain G89.29 [facility] [id number] [place] [address] Nov, Right hip pain M25.551 and Coronary artery disease I25.10 [facility] [address] [address] Nov, Other chronic pain G89.29 [facility] [id number] [place] [address] Oct, [facility] [address] [address] Oct, [facility] [address] [address] Sep, [facility] [address] [address] Sep, [facility] [id number] [place] [address] Aug, [facility] [address] [address] 15 Aug, 2015 Hypertension I10 ; Coronary artery disease I25.10 and Arthritis M19.90 [facility] [id number] [place] [address] Jun, [facility] [address] [id number] [place] [address] Jun, Essential hypertension, benign 401.1 ; Other chronic pain 338.29 and Chronic airway obstruction, not elsewhere classified [facility] [address] [id number] [place] [address] Jun, [facility] [address] [id number] [place] [address] Jun, [facility] [address] [facility] [id number] [place] [address] Jun, [facility] [address] [facility] [id number] [place] [address] May, [facility] [address] [place] [address] May, [facility] [id number] [place] [address] Apr, [facility] [id number] [place] [address] Apr, [facility] [id number] [place] [address] Apr, [facility] [id number] [place] [address] March, [facility] [address] [facility] [id number] [place] [address] March, [facility] [address] [facility] [id number] [place] [address] March, [facility] [address] [facility] [id number] [place] [address] March, [facility] [id number] [place] [address] March, Sialadenitis 527.2 [facility] [place] [facility] [address] [id number] [place] [address] Feb, [facility] [place] [facility] [address] [id number] [place] [address] Feb, [facility] [place] [facility] [address] [id number] [place] [address] Feb, [facility] [place] [facility] [address] [id number] [place] [address] 14 Feb, 2015 [facility] [place] [facility] [address] [id number] [place] [address] Feb, [facility] [place] [facility] [address] [id number] [place] [address] Jan, [facility] [place] [facility] [address] [facility] [id number] [place] [address] Jan, [facility] [place] [facility] [address] [facility] [id number] [place] [address] Jan, [facility] [place] [facility] [address] [facility] [id number] [place] [address] Jan, [facility] [place] [facility] [address] [facility] [id number] [place] [address] Jan, [facility] [place] [facility] [address] [facility] [id number] [place] [address] Jan, [facility] [place] [facility] [address] [facility] [id number] [place] [address] Dec, 2014 [facility] [place] [facility] [address] [id number] [place] [address] Dec, [facility] [place] [facility] [address] [id number] [place] [address] Dec, [facility] [place] [facility] [address] [facility] [id number] [place] [address] Dec, 2014 [facility] [place] [facility] [address] [facility] [id number] [address] Dec, [facility] [place] [facility] [address] [id number] [place] [address] Dec, [facility] [place] [facility] [address] [id number] [place] [address] Nov, [facility] [place] [facility] [address] [id number] [place] [address] Nov, [facility] [place] [facility] [address] [id number] [place] [address] Nov, [facility] [place] [facility] [address] [id number] [place] [address] Nov, [facility] [place] [facility] [address] [id number] [place] [address] Nov, [facility] [place] [facility] [address] [id number] [address] Nov, [facility] [place] [facility] [address] [id number] [place] [address] Nov, [facility] [place] [facility] [address] [id number] [place] [address] Nov, [facility] [place] [facility] [address] [id number] [place] [address] Nov, [facility] [place] [facility] [address] [id number] [place] [address] Nov, [facility] [place] [facility] [address] [id number] [place] [address] Nov, [facility] [place] [facility] [address] [id number] [place] [address] Nov, [facility] [place] [facility] [address] [id number] [place] [address] Nov, [facility] [place] [facility] [address] [id number] [address] Nov, [facility] [place] [facility] [address] [id number] [place] [address] Oct, [facility] [place] [facility] [address] [id number] [place] [address] Oct, [facility] [place] [facility] [address] [id number] [place] [address] Oct, [facility] [place] [facility] [address] [id number] [place] [address] 18 Oct, 2014 [facility] [place] [facility] [address] [id number] [place] [address] 18 Oct, 2014 [facility] [place] [facility] [address] [id number] [place] [address] Oct, [facility] [place] [facility] [address] [id number] [place] [address] Oct, [facility] [place] [facility] [address] [id number] [place] [address] Oct, [facility] [place] [facility] [address] [id number] [place] [address] Oct, [facility] [place] [facility] [address] [id number] [place] [address] Sep, [facility] [place] [facility] [address] [id number] [place] [address] Sep, [facility] [place] [facility] [address] [id number] [place] [address] Sep, [facility] [place] [facility] [address] [id number] [place] [address] Sep, [facility] [place] [facility] [address] [id number] [place] [address] Sep, [facility] [place] [facility] [address] [id number] [place] [address] Sep, [facility] [place] [facility] [address] [id number] [place] [address] Sep, [facility] [place] [facility] [address] [id number] [place] [address] Sep, [facility] [place] [facility] [address] [id number] [place] [address] Sep, [facility] [place] [facility] [address] [id number] [place] [address] Sep, [facility] [place] [facility] [address] [id number] [place] [address] Sep, [facility] [place] [facility] [address] [id number] [place] [address] Sep, [facility] [place] [facility] [address] [id number] [place] [address] Aug, [facility] [place] [facility] [address] [id number] [place] [address] Aug, [facility] [place] [facility] [address] [id number] [address] Aug, [facility] [place] [facility] [address] [id number] [place] [address] Aug, [facility] [place] [facility] [address] [id number] [place] [address] Aug, [facility] [place] [facility] [address] [id number] [place] [address] Aug, [facility] [place] [facility] [address] [id number] [place] [address] Aug, [facility] [place] [facility] [address] [id number] [place] [address] Aug, [facility] [place] [facility] [address] [id number] [address] 30 Jul, 2014 [facility] [place] [facility] [address] [id number] [place] [address] 30 Jul, 2014 [facility] [place] [facility] [address] [id number] [place] [address] 30 Jul, 2013 [facility] [place] [facility] [address] [id number] [place] [address] 30 Jul, 2013 [facility] [place] [facility] [address] [id number] [place] [address] 25 Jul, 2013 [facility] [place] [facility] [address] [id number] [place] [address] 25 Jul, 2013 [facility] [place] [facility] [address] [id number] [place] [address] 15 Jul, 2013 [facility] [place] [facility] [address] [id number] [place] [address] 15 Jul, 2013 [facility] [place] [facility] [address] [id number] [place] [address] 11 Jul, 2014 [facility] [place] [facility] [address] [id number] [place] [address] Jul, 2013 [facility] [place] [facility] [address] [id number] [place] [address] Jun, [facility] [place] [facility] [address] [id number] [place] [address] Jun, [facility] [place] [facility] [address] [id number] [place] [address] Jun, [facility] [place] [facility] [address] [id number] [place] [address] Jun, [facility] [place] [facility] [address] [id number] [place] [address] Jun, [facility] [place] [facility] [address] [id number] [place] [address] Jun, [facility] [place] [facility] [address] [id number] [place] [address] Jun, [facility] [place] [facility] [address] [id number] [place] [address] Jun, [facility] [place] [facility] [address] [id number] [place] [address] Jun, [facility] [place] [facility] [address] [id number] [place] [address] Jun, [facility] [place] [facility] [address] [id number] [place] [address] Jun, [facility] [place] [facility] [address] [id number] [place] [address] Jun, [facility] [place] [facility] [address] [id number] [place] [address] Jun, [facility] [place] [facility] [address] [id number] [place] [address] Jun, [facility] [place] [facility] [address] [id number] [place] [address] Jun, [facility] [place] [facility] [address] [id number] [place] [address] Jun, [facility] [place] [facility] [address] [id number] [place] [address] Jun, [facility] [place] [facility] [address] [id number] [place] [address] Jun, [facility] [place] [facility] [address] [id number] [place] [address] Jun, [facility] [place] [facility] [address] [id number] [place] [address] Jun, [facility] [place] [facility] [address] [id number] [place] [address] Jun, [facility] [place] [facility] [address] [id number] [place] [address] Jun, [facility] [place] [facility] [address] [id number] [place] [address] May, [facility] [place] [facility] [address] [id number] [place] [address] May, [facility] [place] [facility] [address] [id number] [place] [address] May, [facility] [place] [facility] [address] [id number] [place] [address] May, [facility] [place] [facility] [address] [id number] [place] [address] May, [facility] [place] [facility] [address] [id number] [place] [address] May, [facility] [place] [facility] [address] [id number] [place] [address] May, [facility] [place] [facility] [address] [id number] [place] [address] May, [facility] [place] [facility] [address] [id number] [place] [address] May, [facility] [place] [facility] [address] [id number] [place] [address] May, [facility] [place] [facility] [address] [id number] [place] [address] May, [facility] [place] [facility] [address] [id number] [place] [address] May, [facility] [place] [facility] [address] [id number] [place] [address] May, [facility] [place] [facility] [address] [id number] [place] [address] Apr, [facility] [place] [facility] [address] [id number] [place] [address] Apr, [facility] [place] [facility] [address] [id number] [place] [address] Apr, [facility] [place] [facility] [address] [id number] [place] [address] Apr, [facility] [place] [facility] [address] [id number] [place] [address] Apr, [facility] [place] [facility] [address] [id number] [place] [address] Apr, [facility] [place] [facility] [address] [id number] [place] [address] Apr, [facility] [place] [facility] [address] [id number] [place] [address] Apr, [facility] [place] [facility] [address] [id number] [place] [address] Apr, [facility] [place] [facility] [address] [id number] [place] [address] March, [facility] [place] [facility] [address] [id number] [place] [address] March, [facility] [place] [facility] [address] [id number] [place] [address] March, [facility] [address] [id number] [place] [address] March, [facility] [place] [facility] [address] [id number] [place] [address] March, [facility] [address] [id number] [place] [address] March, [facility] [place] [facility] [address] [id number] [place] [address] March, [facility] [place] [facility] [address] [id number] [place] [address] March, [facility] [place] [facility] [address] [id number] [place] [address] March, [facility] [place] [facility] [address] [id number] [place] [address] March, [facility] [place] [facility] [address] [id number] [place] [address] March, [facility] [place] [facility] [address] [id number] [place] [address] March, [facility] [place] [facility] [address] [id number] [place] [address] March, [facility] [place] [facility] [address] [id number] [place] [address] March, [facility] [place] [facility] [address] [id number] [place] [address] March, [facility] [place] [facility] [address] [id number] [place] [address] March, [facility] [place] [facility] [address] [id number] [place] [address] March, [facility] [place] [facility] [address] [id number] [place] [address] March, [facility] [place] [facility] [address] [id number] [place] [address] March, [facility] [place] [facility] [address] [id number] [place] [address] March, [facility] [place] [facility] [address] [id number] [place] [address] Feb, [facility] [place] [facility] [address] [id number] [place] [address] Feb, [facility] [place] [facility] [address] [id number] [place] [address] Feb, [facility] [place] [facility] [address] [id number] [place] [address] Feb, [facility] [place] [facility] [address] [id number] [place] [address] Feb, [facility] [place] [facility] [address] [id number] [place] [address] Feb, [facility] [place] [facility] [address] [id number] [address] Feb, [facility] [place] [facility] [address] [id number] [place] [address] Feb, [facility] [place] [facility] [address] [id number] [place] [address] Jan, [facility] [place] [facility] [address] [facility] [id number] [place] [address] Jan, [facility] [place] [facility] [address] [id number] [place] [address] Jan, [facility] [place] [facility] [address] [id number] [place] [address] Jan, [facility] [place] [facility] [address] [facility] [id number] [place] [address] Jan, [facility] [place] [facility] [address] [facility] [id number] [place] [address] Jan, [facility] [place] [facility] [address] [facility] [id number] [place] [address] Jan, [facility] [place] [facility] [address] [id number] [place] [address] Jan, [facility] [place] [facility] [address] [facility] [id number] [place] [address] Jan, [facility] [place] [facility] [address] [id number] [place] [address] Jan, [facility] [place] [facility] [address] [id number] [place] [address] Dec, [facility] [place] [facility] [address] [id number] [place] [address] Dec, [facility] [place] [facility] [address] [id number] [place] [address] Dec, [facility] [place] [facility] [address] [facility] [id number] [place] [address] 2013 [facility] [place] [facility] [address] [id number] [place] [address] 2013 [facility] [place] [facility] [address] [id number] [place] [address] Dec, [facility] [place] [facility] [address] [id number] [place] [address] Dec, [facility] [place] [facility] [address] [id number] [place] [address] Dec, [facility] [place] [facility] [address] [id number] [place] [address] Nov, [facility] [place] [facility] [address] [id number] [place] [address] Nov, [facility] [place] [facility] [address] [id number] [place] [address] Nov, [facility] [place] [facility] [address] [id number] [place] [address] Nov, [facility] [place] [facility] [address] [id number] [place] [address] Nov, [facility] [place] [facility] [address] [id number] [place] [address] Nov, [facility] [place] [facility] [address] [id number] [place] [address] Nov, [facility] [place] [facility] [address] [id number] [place] [address] Nov, [facility] [place] [facility] [address] [id number] [place] [address] Nov, [facility] [place] [facility] [address] [id number] [place] [address] Nov, [facility] [place] [facility] [address] [id number] [place] [address] Nov, [facility] [place] [facility] [address] [id number] [place] [address] 15 Nov, 2013 [facility] [address] [id number] [place] [address] 15 Nov, 2013 [facility] [address] [id number] [place] [address] 30 Oct, 2013 [facility] [address] [facility] [id number] [place] [address] Oct, [facility] [address] [id number] [place] [address] Oct, [facility] [address] [id number] [place] [address] Oct, [facility] [address] [id number] [place] [address] Oct, [facility] [address] [id number] [place] [address] Oct, [facility] [address] [id number] [place] [address] Oct, [facility] [address] [id number] [place] [address] Oct, [facility] [address] [facility] [id number] [place] [address] Oct, [facility] [address] [id number] [place] [address] Oct, [facility] [address] [id number] [place] [address] Oct, [facility] [address] [id number] [place] [address] Oct, [facility] [address] [facility] [id number] [place] [address] Oct, [facility] [address] [facility] [id number] [place] [address] Oct, [facility] [place] [facility] [address] [id number] [place] [address] 14 Sep, 2013 [facility] [place] [facility] [address] [id number] [place] [address] 14 Sep, 2013 [facility] [place] [facility] [address] [id number] [place] [address] 05 Sep, 2013 [facility] [place] [facility] [address] [id number] [place] [address] 05 Sep, 2013 [facility] [place] [facility] [address] [id number] [place] [address] Sep, [facility] [place] [facility] [address] [id number] [place] [address] Sep, [facility] [place] [facility] [address] [id number] [place] [address] Sep, [facility] [place] [facility] [address] [id number] [place] [address] Sep, [facility] [place] [facility] [address] [id number] [place] [address] Sep, [facility] [place] [facility] [address] [id number] [place] [address] Sep, [facility] [place] [facility] [address] [id number] [place] [address] Aug, [facility] [place] [facility] [address] [id number] [place] [address] Aug, [facility] [place] [facility] [address] [id number] [place] [address] Aug, [facility] [place] [facility] [address] [id number] [place] [address] Aug, [facility] [place] [facility] [address] [id number] [place] [address] Aug, [facility] [place] [facility] [address] [id number] [place] [address] 23 Aug, 2013 [facility] [place] [facility] [address] [id number] [place] [address] 23 Aug, 2012 [facility] [place] [facility] [address] [id number] [place] [address] 23 Aug, 2013 [facility] [place] [facility] [address] [id number] [place] [address] Aug, [facility] [place] [facility] [address] [id number] [place] [address] 22 Aug, 2013 [facility] [place] [facility] [address] [id number] [place] [address] 18 Aug, 2013 [facility] [place] [facility] [address] [id number] [place] [address] 18 Aug, 2013 [facility] [place] [facility] [address] [id number] [place] [address] 18 Aug, 2013 [facility] [place] [facility] [address] [id number] [place] [address] 18 Aug, 2013 [facility] [place] [facility] [address] [id number] [place] [address] 17 Aug, 2013 [facility] [place] [facility] [address] [id number] [place] [address] 14 Aug, 2013 [facility] [place] [facility] [address] [id number] [place] [address] 14 Aug, 2013 [facility] [place] [facility] [address] [id number] [place] [address] Aug, [facility] [place] [facility] [address] [id number] [place] [address] 20 Jul, 2013 [facility] [place] [facility] [address] [id number] [place] [address] 19 Jul, 2013 [facility] [place] [facility] [address] [id number] [place] [address] 18 Jul, 2013 [facility] [place] [facility] [address] [id number] [place] [address] Jul, [facility] [place] [facility] [address] [id number] [place] [address] Jul, [facility] [place] [facility] [address] [id number] [place] [address] Jun, [facility] [place] [facility] [address] [id number] [place] [address] Jun, [facility] [place] [facility] [address] [id number] [place] [address] Jun, [facility] [place] [facility] [address] [id number] [place] [address] Jun, [facility] [place] [facility] [address] [id number] [place] [address] Jun, [facility] [place] [facility] [address] [id number] [place] [address] Jun, [facility] [place] [facility] [address] [id number] [place] [address] Jun, [facility] [place] [facility] [address] [id number] [place] [address] Jun, [facility] [place] [facility] [address] [id number] [place] [address] Jun, [facility] [place] [facility] [address] [id number] [place] [address] Jun, [facility] [place] [facility] [address] [id number] [place] [address] May, [facility] [place] [facility] [address] [id number] [place] [address] May, [facility] [place] [facility] [address] [id number] [place] [address] May, [facility] [place] [facility] [address] [id number] [place] [address] May, [facility] [place] [facility] [address] [id number] [place] [address] May, [facility] [address] [id number] [place] [address] May, [facility] [address] [id number] [place] [address] May, [facility] [address] [id number] [place] [address] May, [facility] [address] [id number] [place] [address] May, [facility] [address] [id number] [place] [address] Apr, [facility] [address] [id number] [place] [address] Apr, [facility] [address] [id number] [place] [address] Apr, [facility] [address] [id number] [place] [address] Apr, [facility] [address] [id number] [place] [address] Apr, [facility] [address] [id number] [place] [address] Apr, [facility] [address] [id number] [place] [address] Apr, [facility] [place] [facility] [address] [id number] [place] [address] March, [facility] [place] [facility] [address] [id number] [place] [address] Feb, [facility] [place] [facility] [address] [id number] [place] [address] Feb, [facility] [place] [facility] [address] [id number] [place] [address] 12 Feb, 2013 [facility] [address] [id number] [place] [address] 28 Jan, 2013 [facility] [place] [facility] [address] [id number] [place] [address] 21 Jan, 2013 [facility] [address] [id number] [place] [address] 19 Jan, 2013 [facility] [place] [facility] [address] [id number] [place] [address] 14 Jan, 2013 [facility] [address] [id number] [place] [address] 12 Jan, 2013 [facility] [address] [id number] [place] [address] 08 Jan, 2013 [facility] [address] [id number] [place] [address] 07 Jan, 2013 [facility] [place] [facility] [address] [id number] [place] [address] 04 Jan, 2013 [facility] [place] [facility] [address] [id number] [place] [address] 28 Dec, 2012 [facility] [place] [facility] [address] [id number] [place] [address] 25 Dec, 2012 [facility] [address] [id number] [place] [address] 13 Dec, 2012 [facility] [place] [facility] [address] [id number] [place] [address] 11 Dec, 2012 [facility] [place] [facility] [address] [id number] [place] [address] 07 Dec, 2012 [facility] [place] [facility] [address] [id number] [place] [address] 06 Dec, 2012 [facility] [place] [facility] [address] [facility] [id number] [place] [address] 05 Dec, 2012 [facility] [place] [facility] [address] [id number] [place] [address] 31 Nov, 2012 [facility] [address] [id number] [place] [address] 24 Nov, 2012 [facility] [place] [facility] [address] [id number] [place] [address] 18 Nov, 2012 [facility] [address] [id number] [place] [address] 15 Nov, 2012 [facility] [address] [id number] [place] [address] Nov, [facility] [address] [id number] [place] [address] Nov, [facility] [address] [id number] [place] [address] Nov, [facility] [address] [id number] [place] [address] Oct, [facility] [address] [id number] [place] [address] Oct, [facility] [address] [id number] [place] [address] Oct, [facility] [address] [id number] [place] [address] Oct, [facility] [place] [facility] [address] [id number] [place] [address] Oct, [facility] [place] [facility] [address] [id number] [place] [address] Oct, [facility] [place] [facility] [address] [id number] [place] [address] Oct, [facility] [place] [facility] [address] [id number] [place] [address] 07 Oct, 2012 [facility] [place] [facility] [address] [id number] [address] Oct, [facility] [place] [facility] [address] [id number] [place] [address] Oct, [facility] [place] [facility] [address] [id number] [place] [address] Oct, [facility] [place] [facility] [address] [facility] [id number] [place] [address] Oct, [facility] [place] [facility] [address] [id number] [place] [address] Sep, [facility] [place] [facility] [address] [id number] [place] [address] Sep, [facility] [place] [facility] [address] [id number] [place] [address] Sep, [facility] [place] [facility] [address] [facility] [id number] [place] [address] Sep, [facility] [place] [facility] [address] [id number] [place] [address] Sep, [facility] [place] [facility] [address] [id number] [place] [address] Sep, [facility] [place] [facility] [address] [id number] [place] [address] Sep, [facility] [place] [facility] [address] [id number] [place] [address] Sep, [facility] [place] [facility] [address] [id number] [place] [address] Sep, [facility] [place] [facility] [address] [id number] [place] [address] Sep, [facility] [place] [facility] [address] [facility] [id number] [place] [address] Sep, [facility] [place] [facility] [address] [facility] [id number] [address] Aug, [facility] [place] [facility] [address] [id number] [place] [address] Aug, [facility] [address] [id number] [place] [address] Aug, [facility] [place] [facility] [address] [id number] [place] [address] Aug, [facility] [address] [id number] [place] [address] Aug, [facility] [place] [facility] [address] [id number] [place] [address] Aug, [facility] [address] [id number] [place] [address] Aug, [facility] [place] [facility] [address] [id number] [place] [address] Aug, [facility] [place] [facility] [address] [id number] [place] [address] Aug, [facility] [place] [facility] [address] [id number] [place] [address] Aug, [facility] [place] [facility] [address] [id number] [place] [address] 22 Jul, 2012 [facility] [place] [facility] [address] [id number] [place] [address] 20 Jul, 2012 [facility] [place] [facility] [address] [id number] [place] [address] 10 Jul, 2012 [facility] [place] [facility] [address] [id number] [place] [address] 06 Jul, 2012 [facility] [place] [facility] [address] [id number] [place] [address] 30 Jun, 2012 [facility] [place] [facility] [address] [id number] [place] [address] Jun, [facility] [place] [facility] [address] [id number] [place] [address] Jun, [facility] [place] [facility] [address] [id number] [place] [address] Jun, [facility] [place] [facility] [address] [id number] [place] [address] Jun, [facility] [place] [facility] [address] [id number] [place] [address] Jun, [facility] [place] [facility] [address] [id number] [place] [address] Jun, [facility] [place] [facility] [address] [id number] [place] [address] May, [facility] [place] [facility] [address] [id number] [place] [address] May, [facility] [place] [facility] [address] [id number] [place] [address] May, [facility] [place] [facility] [address] [id number] [place] [address] May, [facility] [place] [facility] [address] [id number] [place] [address] May, [facility] [place] [facility] [address] [id number] [place] [address] Apr, [facility] [place] [facility] [address] [id number] [place] [address] Apr, [facility] [place] [facility] [address] [id number] [place] [address] Apr, [facility] [place] [facility] [address] [id number] [place] [address] Apr, [facility] [place] [facility] [address] [id number] [place] [address] Apr, [facility] [place] [facility] [address] [id number] [place] [address] March, [facility] [place] [facility] [address] [id number] [place] [address] March, [facility] [address] [id number] [place] [address] March, [facility] [address] [id number] [place] [address] March, [facility] [address] [id number] [place] [address] March, [facility] [address] [id number] [place] [address] March, [facility] [address] [id number] [place] [address] March, [facility] [address] [id number] [place] [address] March, [facility] [address] [id number] [place] [address] March, [facility] [address] [id number] [place] [address] March, [facility] [address] [id number] [place] [address] 30 Feb, 2012 [facility] [place] [facility] [address] [id number] [place] [address] Feb, [facility] [address] [id number] [place] [address] 26 Feb, 2012 [facility] [place] [facility] [address] [id number] [place] [address] 19 Feb, 2012 [facility] [place] [facility] [address] [id number] [place] [address] 17 Feb, 2012 [facility] [place] [facility] [address] [id number] [place] [address] 17 Feb, 2012 [facility] [place] [facility] [address] [id number] [place] [address] 12 Feb, 2012 [facility] [place] [facility] [address] [id number] [place] [address] Feb, [facility] [place] [facility] [address] [id number] [place] [address] Feb, [facility] [place] [facility] [address] [id number] [place] [address] Jan, [facility] [place] [facility] [address] [id number] [place] [address] Jan, [facility] [place] [facility] [address] [id number] [place] [address] Jan, [facility] [place] [facility] [address] [id number] [place] [address] Jan, [facility] [place] [facility] [address] [id number] [place] [address] Dec, [facility] [place] [facility] [address] [id number] [place] [address] Dec, [facility] [place] [facility] [address] [id number] [place] [address] Nov, [facility] [place] [facility] [address] [id number] [place] [address] Nov, [facility] [place] [facility] [address] [id number] [place] [address] Nov, [facility] [place] [facility] [address] [id number] [place] [address] Nov, [facility] [place] [facility] [address] [id number] [place] [address] Nov, [facility] [place] [facility] [address] [id number] [place] [address] Oct, [facility] [place] [facility] [address] [id number] [place] [address] Oct, [facility] [place] [facility] [address] [id number] [place] [address] Oct, [facility] [address] [facility] [id number] [place] [address] Oct, [facility] [address] [facility] [id number] [place] [address] Oct, [facility] [address] [facility] [id number] [place] [address] Oct, [facility] [id number] [address] Oct, [facility] [address] [facility] [id number] [place] [address] Oct, [facility] [address] [facility] [id number] [place] [address] Sep, IMMUNIZATIONS No Known Immunizations SOCIAL HISTORY Never Assessed REASON FOR VISIT skilled nursing PLAN OF CARE VITAL SIGNS MEDICATIONS Medication Instructions Dosage Frequency Start Date End Date Duration Status Zoloft 50 MG Orally Once a day 1 tablet 24h Oct, 30 days Active RESULTS No Results PROCEDURES No Known procedures INSTRUCTIONS MEDICATIONS ADMINISTERED No Known Medications MEDICAL (GENERAL) HISTORY Type Description Date 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
--- OUTSIDE RECORDS SUMMARY | 2019-04-16 15:50 | XMS REPORT ---
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 Name Role Phone SHAHNAZ MARQUEZ Unavailable PROBLEMS Type Condition ICD9-CM Code OQD34-UX Code Onset Dates Condition Status SNOMED Code Problem Reactive depression F32.9 Active 53527992 Problem Anxiety F41.9 Active 90120239 Problem Pharyngeal dysphagia R13.13 Active 09420741986566 Problem Suprapubic catheter Z93.59 Active 733331825 Problem Encounter for suprapubic catheter care Z43.5 Active 393688076 Problem Insomnia G47.00 Active 186009351 Problem Peripheral vascular disease I73.9 Active 644433267 Problem 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 Active 35761193 Problem Paroxysmal atrial fibrillation I48.0 Active 534303682 Problem Hypertension I10 Active 01855584 Problem Other chronic pain G89.29 Active 42376050 Problem Low back pain M54.5 Active 044356359 Problem Coronary artery disease I25.10 Active 62965726 Problem Type 2 diabetes mellitus without complication, without long-term current use of insulin E11.9 Active 935012039 Problem Hyperlipidemia E78.5 Active 47489683 Problem Ventral hernia without obstruction or gangrene K43.9 Active 268812994 ALLERGIES No Information ENCOUNTERS Encounter Location Date Diagnosis [facility] [address] [id number] [address] 14 Sep, 2018 Other chronic pain G89.29 [facility] [address] [place] [id number] 13 Sep, 2018 Suprapubic catheter Z93.59 and Cervicalgia M54.2 [facility] [address] [facility] [id number], [place] [address] 07 Sep, 2018 [facility] [address], [place] [address] Sep, [facility] [address] [id number], [place] [address] Sep, [facility] [address] [place] [id number] Aug, Cystitis N30.90 [facility] [address] [id number], [place] [address] Aug, [facility] [address] [id number], [place] [address] Aug, Other chronic pain G89.29 [facility] [address] [id number], [place] [address] Aug, [facility] [address] [place] [id number] Aug, Encounter for suprapubic catheter care Z43.5 [facility] [address] [id number], [place] [address] Jul, [facility] [address] [place] [id number] Jul, [facility] [address] [id number], [place] [address] Jul, Other chronic pain G89.29 [facility] [address] [id number], [place] [address] Jul, [facility] [address] [facility] [id number], [place] [address] Jul, [facility] [address] [place] [id number] Jun, 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 [facility] [address] [id number], [place] [address] Jun, Other chronic pain G89.29 [facility] [address] [id number], [place] [address] Jun, [facility] [address] [place] [address] May, Anxiety F41.9 ; Type 2 diabetes mellitus without complication, without long-term current use of insulin E11.9 ; Hypertension I10 ; Low back pain M54.5 ; Paroxysmal atrial fibrillation I48.0 and 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 [facility] [address] [facility] [id number], [place] [address] May, Other chronic pain G89.29 [address] [facility] [address] [place] [address] May, Low back pain M54.5 [place] [address] [facility] [id number], [place] [address] May, [place] [facility] [id number] [place] [address] Apr, Other chronic pain G89.29 [place] [address] [facility] [id number], [place] [address] Apr, [place] [id number] [place] [address] Apr, [facility] [address] [place] [id number] Apr, Closed compression fracture of L3 lumbar vertebra with routine healing, subsequent encounter S32.030D [facility] [address] [place] [id number] Apr, Low back pain M54.5 [facility] [address] [place] [id number] Apr, Coccydynia M53.3 [place] [address] [facility] [id number], [place] [address] March, [place] [address] [facility] [id number] [place] [address] March, Other chronic pain G89.29 [facility] [address] [facility] [id number], [place] [address] March, [facility] [id number] [place] [address] March, [facility] [address], [place] [address] Feb, [facility] [address] [place] [address] Feb, Other chronic pain G89.29 [facility] [address] [place] [address] Feb, Other chronic pain G89.29 and Anxiety F41.9 [facility] [address]00565[address], [place] [address] Feb, [facility] [address] [place] [address] Jan, [facility] [address] [place] [address] Jan, [facility] [address] [place] [address] Jan, [facility] [address], [place] [address] Jan, [facility] [address] [place] [address] Dec, [facility] [address] [place] [address] Dec, Peripheral vascular disease I73.9 ; 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 ; Other chronic pain G89.29 ; Anxiety F41.9 ; Reactive depression F32.9 ; Insomnia G47.00 and Type 2 diabetes mellitus without complication, without long-term current use of insulin E11.9 [facility] [address] [id number] [place] [address] Nov, [facility] [id number] [address] Nov, Anxiety F41.9 [facility] [id number], [place] [address] Nov, [facility] [address] [id number] [address] Nov, Anxiety F41.9 [facility] [address] [place] [id number] Nov, Status post surgery Z98.890 ; Confused R41.0 ; Anxiety F41.9 and Other chronic pain G89.29 [facility] [id number] [address] Nov, Other chronic pain G89.29 [facility] [address], [place] [address] Oct, [facility] [id number] [place] [id number] Oct, Other chronic pain G89.29 [facility] [address], [place] [address] Oct, Anxiety F41.9 [facility] [id number] [place] [id number] Sep, Other chronic pain G89.29 [facility] [id number] [place] [id number] Sep, [facility] [address] [place] [id number] Aug, Dysuria R30.0 and Anxiety F41.9 [facility] [id number], [place] [address] Aug, [facility] [id number] [place] [id number] Aug, Other chronic pain G89.29 [facility] [address], [place] [address] Jul, Other chronic pain G89.29 [facility] [id number] [address] Jun, [facility] [id number] [place] [id number] Jun, Other chronic pain G89.29 [facility] [address], [place] [address] Jun, [facility] [address] [place] [address] May, Other chronic pain G89.29 [facility] [address], [place] [address] Apr, Other chronic pain G89.29 [facility] [address] [place] [id number] Apr, Reactive depression F32.9 and Pharyngeal dysphagia R13.13 [facility] [id number] [place] [address] Apr, Urinary tract infection without hematuria, site unspecified N39.0 [facility] [address] [place] [address] March, Other chronic pain G89.29 [facility] [address], [place] [address] Feb, Other chronic pain G89.29 [facility] [address] [place] [address] Feb, [facility] [id number] [place] [id number] Feb, [facility] [address] [place] [id number] Feb, Dysuria R30.0 and Ventral hernia without obstruction or gangrene K43.9 [facility] [address], [place] [address] Jan, Other chronic pain G89.29 [facility] [id number] [place] [id number] Dec, Other chronic pain G89.29 [facility] [address], [place] [address] Nov, Other chronic pain G89.29 [facility] [address] [place] [id number] Nov, Lymphadenitis I88.9 [facility] [address] [facility] [id number] [place] [address] Nov, Other chronic pain G89.29 [facility] [address] [facility] [id number], [place] [address] Nov, [facility] [id number] [place] [id number] Nov, Other chronic pain G89.29 [facility] [address] [place] [id number] Oct, Low back pain M54.5 ; Hypertension I10 and Type 2 diabetes mellitus without complication, without long-term current use of insulin E11.9 [facility] [id number] [place] [address] Oct, [facility] [id number] [place] [address] Oct, [facility] [id number] [place] [address] Oct, [facility] [address] [place] [address] Oct, [facility] [address], [place] [address] Sep, [facility] [id number] [place] [address] Sep, [facility] [id number] [place] [address] Aug, Other chronic pain G89.29 [facility] [address] [place] [address] Jul, [facility] [address], [place] [address] Jul, [facility] [address] [id number], [place] [address] Jul, [facility] [address] [facility] [id number], [place] [address] Jun, [facility] [address], [place] [address] Jun, [facility] [address] [place] [id number] Jun, Low back pain M54.5 ; Other chronic pain G89.29 and Coronary artery disease I25.10 [facility] [address] [facility] [id number], [place] [address] Jun, [facility] [address] [place] [address] May, [facility] [address], [place] [address] May, [facility] [address], [place] [address] May, Other chronic pain G89.29 [facility] [address], [place] [address] May, [facility] [address], [place] [address] Apr, [facility] [address], [place] [address] Apr, Acute cystitis without hematuria N30.00 [facility] [address], [place] [address] 16 Apr, 2016 Acute cystitis without hematuria N30.00 ; Coronary artery disease I25.10 ; Low back pain M54.5 and Other chronic pain G89.29 [facility] [address], [place] [address] Apr, Other chronic pain G89.29 [facility] [address], [place] [address] March, Other chronic pain G89.29 [facility] [id number] [place] [address] Feb, [facility] [id number] [place] [address] Feb, Arthritis M19.90 [facility] [id number] [place] [address] Feb, [facility] [id number] [place] [address] Jan, [facility] [id number] [place] [address] Jan, [facility] [id number] [place] [address] Jan, Other chronic pain G89.29 [facility] [id number] [place] [address] Jan, Hypertension I10 ; Coronary artery disease I25.10 and Insomnia G47.00 [facility] [id number] [place] [address] Jan, [facility] [id number] [place] [address] Dec, Right hip pain M25.551 [facility] [id number] [place] [address] Dec, [facility] [address] [place] [address] Dec, [facility] [id number] [place] [address] Dec, [facility] [id number] [place] [address] Dec, Other chronic pain G89.29 [facility] [id number] [place] [address] Dec, [facility] [address] [place] [address] Nov, [facility] [id number] [place] [address] Nov, Other chronic pain G89.29 [facility] [id number] [place] [address] Nov, Right hip pain M25.551 and Coronary artery disease I25.10 [facility] [address] [place] [address] Nov, Other chronic pain G89.29 [facility] [id number] [place] [address] Oct, [facility] [id number] [place] [address] Oct, [facility] [id number] [place] [address] Sep, [facility] [id number] [place] [address] Sep, [facility] [id number] [place] [address] Aug, [facility] [address] [place] [address] Aug, Hypertension I10 ; Coronary artery disease I25.10 and Arthritis M19.90 [facility] [id number] [place] [address] Jun, [facility] [id number] [place] [address] Jun, Essential hypertension, benign 401.1 ; Other chronic pain 338.29 and Chronic airway obstruction, not elsewhere classified 496 [facility] [id number] [place] [address] Jun, [facility] [address] [id number] [place] [address] Jun, [facility] [address] [id number] [place] [address] Jun, [facility] [address] [id number] [place] [address] May, [facility] [address] [id number] [place] [address] May, [facility] [address] [id number] [place] [address] Apr, [facility] [address] [id number] [place] [address] Apr, [facility] [address] [id number] [place] [address] Apr, [facility] [address] [id number] [place] [address] March, [facility] [address] [id number] [place] [address] March, [facility] [address] [id number] [place] [address] March, [facility] [address] [id number] [place] [address] March, [facility] [address] [id number] [place] [address] March, Sialadenitis 527.2 [facility] [address] [id number] [place] [address] Feb, [facility] [address] [id number] [place] [address] Feb, [facility] [address] [id number] [place] [address] Feb, [facility] [address] [id number] [place] [address] 14 Feb, 2015 [facility] [place] [facility] [address] [id number] [place] [address] 13 Feb, 2015 [facility] [place] [facility] [address] [id number] [place] [address] Jan, [facility] [place] [facility] [address] [id number] [place] [address] Jan, [facility] [place] [facility] [address] [id number] [place] [address] Jan, [facility] [place] [facility] [address] [id number] [place] [address] Jan, [facility] [place] [facility] [address] [facility] [id number] [place] [address] Jan, [facility] [place] [facility] [address] [facility] [id number] [place] [address] Jan, [facility] [place] [facility] [address] [id number] [place] [address] Dec, [facility] [place] [facility] [address] [id number] [place] [address] Dec, [facility] [place] [facility] [address] [facility] [id number] [place] [address] Dec, [facility] [place] [facility] [address] [id number] [place] [address] Dec, [facility] [place] [facility] [address] [id number] [place] [address] Dec, [facility] [place] [facility] [address] [id number] [place] [address] Dec, [facility] [place] [facility] [address] [facility] [id number] [place] [address] Nov, [facility] [place] [facility] [address] [id number] [place] [address] Nov, [facility] [place] [facility] [address] [id number] [place] [address] Nov, [facility] [place] [facility] [address] [id number] [place] [address] Nov, [facility] [place] [facility] [address] [id number] [place] [address] Nov, [facility] [place] [facility] [address] [id number] [place] [address] Nov, [facility] [place] [facility] [address] [id number] [place] [address] Nov, [facility] [place] [facility] [address] [id number] [place] [address] Nov, [facility] [place] [facility] [address] [id number] [place] [address] Nov, [facility] [place] [facility] [address] [id number] [place] [address] Nov, [facility] [place] [facility] [address] [id number] [place] [address] Nov, [facility] [place] [facility] [address] [id number] [place] [address] Nov, [facility] [place] [facility] [address] [id number] [place] [address] Nov, [facility] [place] [facility] [address] [id number] [address] Nov, [facility] [place] [facility] [address] [id number] [place] [address] Oct, [facility] [place] [facility] [address] [id number] [place] [address] Oct, [facility] [place] [facility] [address] [id number] [place] [address] Oct, [facility] [place] [facility] [address] [id number] [place] [address] 18 Oct, 2014 [facility] [place] [facility] [address] [id number] [place] [address] 18 Oct, 2014 [facility] [place] [facility] [address] [id number] [place] [address] 17 Oct, 2014 [facility] [place] [facility] [address] [id number] [place] [address] 17 Oct, 2014 [facility] [place] [facility] [address] [id number] [place] [address] Oct, [facility] [place] [facility] [address] [id number] [place] [address] Oct, [facility] [place] [facility] [address] [id number] [place] [address] Sep, [facility] [place] [facility] [address] [id number] [place] [address] Sep, [facility] [place] [facility] [address] [id number] [place] [address] Sep, [facility] [place] [facility] [address] [id number] [place] [address] Sep, [facility] [place] [facility] [address] [facility] [id number] [place] [address] Sep, [facility] [place] [facility] [address] [id number] [place] [address] Sep, [facility] [place] [facility] [address] [id number] [place] [address] Sep, [facility] [place] [facility] [address] [id number] [place] [address] Sep, [facility] [place] [facility] [address] [id number] [place] [address] Sep, [facility] [place] [facility] [address] [id number] [place] [address] Sep, [facility] [place] [facility] [address] [id number] [place] [address] Sep, [facility] [place] [facility] [address] [id number] [place] [address] Sep, [facility] [place] [facility] [address] [id number] [place] [address] Aug, [facility] [place] [facility] [address] [id number] [place] [address] Aug, [facility] [place] [facility] [address] [id number] [place] [address] Aug, [facility] [place] [facility] [address] [id number] [place] [address] Aug, [facility] [place] [facility] [address] [id number] [place] [address] Aug, [facility] [place] [facility] [address] [id number] [place] [address] Aug, [facility] [place] [facility] [address] [id number] [place] [address] Aug, [facility] [place] [facility] [address] [id number] [place] [address] 17 Aug, 2014 [facility] [place] [facility] [address] [id number] [place] [address] 30 Jul, 2013 [facility] [place] [facility] [address] [id number] [place] [address] 30 Sep, 2013 [facility] [place] [facility] [address] [id number] [place] [address] 30 Sep, 2013 [facility] [place] [facility] [address] [id number] [place] [place] [address] 30 Sep, 2013 [facility] [place] [facility] [address] [id number] [place] [address] 25 Sep, 2013 [facility] [place] [facility] [address] [id number] [place] [address] Jul, [facility] [place] [facility] [address] [id number] [place] [address] Jul, [facility] [place] [facility] [address] [id number] [place] [address] Jul, [facility] [place] [facility] [address] [id number] [place] [address] Jul, [facility] [place] [facility] [address] [id number] [place] [address] Jul, [facility] [place] [facility] [address] [id number] [place] [address] Jun, [facility] [place] [facility] [address] [id number] [place] [address] Jun, [facility] [place] [facility] [address] [id number] [place] [address] Jun, [facility] [place] [facility] [address] [id number] [place] [address] Jun, [facility] [place] [facility] [address] [id number] [place] [address] Jun, [facility] [place] [facility] [address] [id number] [place] [address] Jun, [facility] [place] [facility] [address] [id number] [place] [address] Jun, [facility] [place] [facility] [address] [id number] [place] [address] Jun, [facility] [place] [facility] [address] [id number] [place] [address] Jun, [facility] [place] [facility] [address] [id number] [place] [address] Jun, [facility] [place] [facility] [address] [id number] [place] [address] Jun, [facility] [place] [facility] [address] [id number] [place] [address] Jun, [facility] [place] [facility] [address] [id number] [place] [address] Jun, [facility] [place] [facility] [address] [id number] [place] [address] Jun, [facility] [place] [facility] [address] [id number] [place] [address] Jun, [facility] [place] [facility] [address] [id number] [place] [address] Jun, [facility] [place] [facility] [address] [id number] [place] [address] Jun, [facility] [place] [facility] [address] [id number] [place] [address] Jun, [facility] [place] [facility] [address] [id number] [place] [address] Jun, [facility] [place] [facility] [address] [id number] [place] [address] Jun, [facility] [place] [facility] [address] [id number] [place] [address] Jun, [facility] [place] [facility] [address] [id number] [place] [address] Jun, [facility] [place] [facility] [address] [id number] [place] [address] May, [facility] [place] [facility] [address] [id number] [place] [address] May, [facility] [place] [facility] [address] [id number] [place] [address] May, [facility] [place] [facility] [address] [id number] [place] [address] May, [facility] [place] [facility] [address] [id number] [place] [address] May, [facility] [place] [facility] [address] [id number] [place] [address] May, 2013 [facility] [place] [facility] [address] [id number] [place] [address] May, 2013 [facility] [place] [facility] [address] [id number] [place] [address] May, 2013 [facility] [place] [facility] [address] [id number] [place] [address] May, 2013 [facility] [place] [facility] [address] [id number] [place] [address] May, [facility] [place] [facility] [address] [id number] [place] [address] May, [facility] [place] [facility] [address] [id number] [place] [address] May, [facility] [place] [facility] [address] [id number] [place] [address] May, [facility] [place] [facility] [address] [id number] [place] [address] Apr, [facility] [place] [facility] [address] [id number] [place] [address] Apr, [facility] [place] [facility] [address] [id number] [place] [address] Apr, [facility] [place] [facility] [address] [id number] [place] [address] Apr, [facility] [place] [facility] [address] [id number] [place] [address] Apr, [facility] [place] [facility] [address] [id number] [place] [address] Apr, [facility] [place] [facility] [address] [id number] [place] [address] Apr, [facility] [place] [facility] [address] [id number] [place] [address] Apr, [facility] [place] [facility] [address] [id number] [place] [address] Apr, [facility] [place] [facility] [address] [id number] [place] [address] March, [facility] [place] [facility] [address] [id number] [place] [address] March, [facility] [place] [facility] [address] [id number] [place] [address] March, [facility] [place] [facility] [address] [id number] [place] [address] March, [facility] [place] [facility] [address] [id number] [place] [address] March, [facility] [place] [facility] [address] [id number] [place] [address] March, [facility] [place] [facility] [address] [id number] [place] [address] March, [facility] [place] [facility] [address] [id number] [place] [address] March, [facility] [place] [facility] [address] [id number] [place] [address] March, [facility] [place] [facility] [address] [id number] [place] [address] March, [facility] [place] [facility] [address] [id number] [place] [address] March, [facility] [place] [facility] [address] [id number] [place] [address] March, [facility] [place] [facility] [address] [id number] [place] [address] March, [facility] [place] [facility] [address] [id number] [place] [address] March, [facility] [place] [facility] [address] [id number] [place] [address] March, [facility] [address] [id number] [place] [address] March, [facility] [place] [facility] [address] [id number] [place] [address] March, [facility] [place] [facility] [address] [id number] [place] [address] March, [facility] [place] [facility] [address] [id number] [place] [address] March, [facility] [place] [facility] [address] [id number] [place] [address] March, [facility] [place] [facility] [address] [id number] [place] [address] Feb, [facility] [place] [facility] [address] [id number] [place] [address] Feb, [facility] [address] [id number] [place] [address] Feb, [facility] [place] [facility] [address] [id number] [place] [address] Feb, [facility] [place] [facility] [address] [id number] [place] [address] Feb, [facility] [place] [facility] [address] [id number] [place] [address] Feb, [facility] [place] [facility] [address] [id number] [place] [address] Feb, [facility] [place] [facility] [address] [id number] [place] [address] Feb, [facility] [place] [facility] [address] [id number] [place] [address] Jan, [facility] [place] [facility] [address] [id number] [place] [address] Jan, [facility] [place] [facility] [address] [id number] [place] [address] Jan, [facility] [place] [facility] [address] [id number] [place] [address] Jan, [facility] [place] [facility] [address] [id number] [place] [address] Jan, [facility] [place] [facility] [address] [id number] [place] [address] Jan, [facility] [place] [facility] [address] [id number] [place] [address] Jan, [facility] [place] [facility] [address] [id number] [place] [address] Jan, [facility] [place] [facility] [address] [id number] [place] [address] Jan, [facility] [place] [facility] [address] [id number] [place] [address] Jan, [facility] [place] [facility] [address] [id number] [place] [address] Dec, [facility] [place] [facility] [address] [id number] [place] [address] Dec, [facility] [place] [facility] [address] [id number] [place] [address] Dec, [facility] [place] [facility] [address] [id number] [place] [address] Dec, [facility] [place] [facility] [address] [id number] [place] [address] Dec, [facility] [place] [facility] [address] [id number] [place] [address] Dec, [facility] [place] [facility] [address] [id number] [place] [address] 12 Dec, 2013 [facility] [place] [facility] [address] [id number] [place] [address] Dec, [facility] [address] [id number] [place] [address] Nov, [facility] [place] [facility] [address] [id number] [place] [address] Nov, [facility] [place] [facility] [address] [id number] [place] [address] Nov, [facility] [place] [facility] [address] [id number] [place] [address] Nov, [facility] [place] [facility] [address] [id number] [place] [address] Nov, [facility] [place] [facility] [address] [id number] [place] [address] Nov, [facility] [address] [id number] [place] [address] Nov, [facility] [address] [id number] [place] [address] Nov, [facility] [place] [facility] [address] [id number] [place] [address] Nov, [facility] [address] [id number] [place] [address] Nov, [facility] [place] [facility] [address] [id number] [place] [address] Nov, [facility] [place] [facility] [address] [id number] [place] [address] Nov, [facility] [place] [facility] [address] [id number] [place] [address] Nov, [facility] [place] [facility] [address] [id number] [place] [address] Oct, [facility] [place] [facility] [address] [id number] [place] [address] Oct, [facility] [place] [facility] [address] [id number] [place] [address] Oct, [facility] [place] [facility] [address] [id number] [place] [address] Oct, [facility] [place] [facility] [address] [id number] [place] [address] Oct, [facility] [place] [facility] [address] [id number] [place] [address] Oct, [facility] [place] [facility] [address] [id number] [place] [address] Oct, [facility] [place] [facility] [address] [id number] [place] [address] Oct, [facility] [place] [facility] [address] [id number] [place] [address] Oct, [facility] [place] [facility] [address] [id number] [place] [address] Oct, [facility] [place] [facility] [address] [id number] [place] [address] Oct, [facility] [place] [facility] [address] [id number] [place] [address] Oct, [facility] [place] [facility] [address] [id number] [place] [address] Oct, [facility] [place] [facility] [address] [id number], [place] [address] Oct, [facility] [place] [facility] [address] [id number] [place] [address] 14 Sep, 2013 [facility] [place] [facility] [address] [id number] [place] [address] Sep, [facility] [place] [facility] [address] [id number] [place] [address] 05 Sep, 2013 [facility] [place] [facility] [address] [id number] [place] [address] Sep, [facility] [place] [facility] [address] [id number] [place] [address] Sep, [facility] [place] [facility] [address] [id number] [place] [address] Sep, [facility] [place] [facility] [address] [id number] [place] [address] Sep, [facility] [place] [facility] [address] [id number] [place] [address] Sep, [facility] [place] [facility] [address] [id number] [place] [address] Sep, [facility] [place] [facility] [address] [id number] [place] [address] Sep, [facility] [place] [facility] [address] [id number] [place] [address] Aug, [facility] [place] [facility] [address] [id number] [place] [address] Aug, [facility] [place] [facility] [address] [id number] [place] [address] Aug, [facility] [place] [facility] [address] [id number] [place] [address] Aug, [facility] [place] [facility] [address] [id number] [place] [address] Aug, [facility] [place] [facility] [address] [id number], [place] [address] Aug, [facility] [place] [facility] [address] [id number] [place] [address] Aug, [facility] [place] [facility] [address] [id number], [place] [address] Aug, [facility] [place] [facility] [address] [id number], [place] [address] Aug, [facility] [place] [facility] [address] [id number] [place] [address] 22 Aug, 2012 [facility] [place] [facility] [address] [id number] [place] [address] 18 Aug, 2013 [facility] [place] [facility] [address] [id number] [place] [address] 18 Aug, 2013 [facility] [place] [facility] [address] [id number] [place] [address] 18 Aug, 2013 [facility] [place] [facility] [address] [id number] [place] [address] 18 Aug, 2013 [facility] [place] [facility] [address] [id number] [place] [address] 17 Aug, 2013 [facility] [place] [facility] [address] [id number] [place] [address] 14 Aug, 2013 [facility] [place] [facility] [address] [id number] [place] [address] 14 Aug, 2013 [facility] [place] [facility] [address] [id number] [place] [address] Aug, [facility] [place] [facility] [address] [id number] [place] [address] 20 Jul, 2013 [facility] [place] [facility] [address] [id number] [place] [address] 19 Jul, 2012 [facility] [place] [facility] [address] [id number] [place] [address] 18 Jul, 2012 [facility] [place] [facility] [address] [id number] [place] [address] 11 Jul, 2013 [facility] [place] [facility] [address] [id number] [place] [address] 11 Jul, 2013 [facility] [place] [facility] [address] [id number] [place] [address] 28 Jun, 2013 [facility] [place] [facility] [address] [id number] [place] [address] Jun, [facility] [place] [facility] [address] [id number] [place] [address] Jun, [facility] [place] [facility] [address] [id number] [place] [address] Jun, [facility] [place] [facility] [address] [id number] [place] [address] Jun, [facility] [place] [facility] [address] [id number] [place] [address] Jun, [facility] [place] [facility] [address] [id number] [place] [address] Jun, [facility] [place] [facility] [address] [id number] [place] [address] Jun, [facility] [place] [facility] [address] [id number] [place] [address] Jun, [facility] [place] [facility] [address] [id number] [place] [address] Jun, [facility] [place] [facility] [address] [id number] [place] [address] May, [facility] [place] [facility] [address] [id number] [place] [address] May, [facility] [place] [facility] [address] [id number] [place] [address] May, [facility] [place] [facility] [address] [id number] [place] [address] May, [facility] [place] [facility] [address] [id number] [place] [address] May, [facility] [place] [facility] [address] [id number] [place] [address] May, [facility] [place] [facility] [address] [id number] [place] [address] May, [facility] [place] [facility] [address] [id number] [place] [address] May, [facility] [address] [id number] [place] [address] May, [facility] [address] [id number] [place] [address] Apr, [facility] [address] [id number] [place] [address] Apr, [facility] [place] [facility] [address] [id number] [place] [address] Apr, [facility] [address] [id number] [place] [address] Apr, [facility] [address] [id number] [place] [address] Apr, [facility] [address] [id number] [place] [address] Apr, [facility] [address] [id number] [place] [address] Apr, [facility] [address] [id number] [place] [address] March, [facility] [address] [id number] [place] [address] Feb, [facility] [address] [id number] [place] [address] Feb, [facility] [address] [id number] [place] [address] Feb, [facility] [place] [facility] [address] [id number] [place] [address] Jan, [facility] [place] [facility] [address] [id number] [place] [address] Jan, [facility] [address] [id number] [place] [address] Jan, [facility] [place] [facility] [address] [id number] [place] [address] 14 Jan, 2013 [facility] [place] [facility] [address] [id number] [place] [address] 12 Jan, 2013 [facility] [place] [facility] [address] [id number] [place] [address] 08 Jan, 2013 [facility] [place] [facility] [address] [id number] [place] [address] 07 Jan, 2013 [facility] [place] [facility] [address] [id number] [place] [address] 04 Jan, 2013 [facility] [place] [facility] [address] [id number] [place] [address] 28 Dec, 2012 [facility] [place] [facility] [address] [id number] [place] [address] 25 Dec, 2012 [facility] [place] [facility] [address] [id number] [place] [address] 13 Dec, 2012 [facility] [place] [facility] [address] [id number] [place] [address] 11 Dec, 2012 [facility] [place] [facility] [address] [id number] [place] [address] 07 Dec, 2012 [facility] [place] [facility] [address] [id number] [place] [address] 06 Dec, 2012 [facility] [place] [facility] [address] [id number], [place] [address] 05 Dec, 2012 [facility] [place] [facility] [address] [id number] [place] [address] Nov, [facility] [place] [facility] [address] [id number] [place] [address] 24 Nov, 2012 [facility] [place] [facility] [address] [id number] [place] [address] Nov, [facility] [place] [facility] [address] [id number] [place] [address] 15 Nov, 2012 [facility] [address] [id number] [place] [address] 10 Nov, 2012 [facility] [place] [facility] [address] [id number] [place] [address] 10 Nov, 2012 [facility] [address] [id number] [place] [address] 02 Nov, 2012 [facility] [place] [facility] [address] [id number] [place] [address] Oct, [facility] [address] [id number] [place] [address] Oct, [facility] [address] [id number] [place] [address] Oct, [facility] [address] [id number] [place] [address] Oct, [facility] [address] [id number] [place] [address] Oct, [facility] [place] [facility] [address] [id number] [place] [address] Oct, [facility] [address] [id number] [place] [address] Oct, [facility] [address] [id number] [place] [address] Oct, [facility] [address] [id number] [place] [address] 05 Oct, 2012 [facility] [place] [facility] [address] [id number] [place] [address] 05 Oct, 2012 [facility] [place] [facility] [address] [id number] [place] [address] Oct, [facility] [address] [id number] [place] [address] Oct, [facility] [place] [facility] [address] [id number] [place] [address] Sep, [facility] [place] [facility] [address] [id number] [place] [address] Sep, [facility] [place] [facility] [address] [id number] [place] [address] Sep, [facility] [place] [facility] [address] [id number] [place] [address] Sep, [facility] [place] [facility] [address] [id number] [place] [address] Sep, [facility] [place] [facility] [address] [id number] [place] [address] Sep, [facility] [place] [facility] [address] [id number] [place] [address] Sep, [facility] [place] [facility] [address] [id number] [place] [address] Sep, [facility] [place] [facility] [address] [id number] [place] [address] Sep, [facility] [place] [facility] [address] [id number], [place] [address] Sep, [facility] [place] [facility] [address] [id number] [place] [address] Sep, [facility] [place] [facility] [address] [id number], [place] [address] Aug, [facility] [place] [facility] [address] [id number] [place] [address] Aug, [facility] [place] [facility] [address] [id number] [place] [address] Aug, [facility] [place] [facility] [address] [id number], [place] [address] Aug, [facility] [place] [facility] [address] [id number], [place] [address] Aug, [facility] [place] [facility] [address] [id number] [place] [address] Aug, [facility] [place] [facility] [address] [id number] [place] [address] Aug, [facility] [place] [facility] [address] [id number] [place] [address] Aug, [facility] [place] [facility] [address] [id number] [place] [address] Aug, [facility] [place] [facility] [address] [id number] [place] [address] Aug, [facility] [place] [facility] [address] [id number] [place] [address] Jul, [facility] [place] [facility] [address] [id number] [place] [address] Jul, [facility] [place] [facility] [address] [id number] [place] [address] Jul, [facility] [place] [facility] [address] [id number] [place] [address] Jul, [facility] [place] [facility] [address] [id number] [place] [address] 30 Jun, 2012 [facility] [place] [facility] [address] [id number] [place] [address] Jun, [facility] [place] [facility] [address] [id number] [place] [address] 16 Jun, 2012 [facility] [place] [facility] [address] [id number] [place] [address] Jun, [facility] [place] [facility] [address] [id number] [place] [address] Jun, [facility] [place] [facility] [address] [id number] [place] [address] Jun, [facility] [place] [facility] [address] [id number] [place] [address] Jun, [facility] [address] [id number] [place] [address] May, [facility] [place] [facility] [address] [id number] [place] [address] May, [facility] [place] [facility] [address] [id number] [place] [address] May, [facility] [place] [facility] [address] [id number] [place] [address] May, [facility] [address] [id number] [place] [address] May, [facility] [address] [id number] [place] [address] Apr, [facility] [address] [id number] [place] [address] Apr, [facility] [address] [id number] [place] [address] Apr, [facility] [place] [facility] [address] [id number] [place] [address] Apr, [facility] [address] [id number] [place] [address] Apr, [facility] [place] [facility] [address] [id number] [place] [address] March, [facility] [address] [id number] [place] [address] March, [facility] [place] [facility] [address] [id number] [place] [address] March, [facility] [place] [facility] [address] [id number] [place] [address] March, [facility] [place] [facility] [address] [id number] [place] [address] March, [facility] [address] [id number] [place] [address] March, [facility] [place] [facility] [address] [id number] [place] [address] March, [facility] [place] [facility] [address] [id number] [place] [address] March, [facility] [place] [facility] [address] [id number] [place] [address] March, [facility] [place] [facility] [address] [id number] [place] [address] March, [facility] [place] [facility] [address] [id number] [place] [address] Feb, [facility] [place] [facility] [address] [id number] [place] [address] Feb, [facility] [place] [facility] [address] [id number] [place] [address] Feb, [facility] [place] [facility] [address] [id number] [place] [address] Feb, [facility] [place] [facility] [address] [id number] [place] [address] Feb, [facility] [place] [facility] [address] [id number] [place] [address] Feb, [facility] [place] [facility] [address] [id number] [place] [address] Feb, [facility] [place] [facility] [address] [id number] [place] [address] Feb, [facility] [place] [facility] [address] [id number] [place] [address] Feb, [facility] [place] [facility] [address] [id number] [place] [address] Jan, [facility] [place] [facility] [address] [id number] [place] [address] 07 Jan, 2012 [facility] [address] [id number] [place] [address] 05 Jan, 2012 [facility] [place] [facility] [address] [id number] [place] [address] Jan, [facility] [place] [facility] [address] [id number] [place] [address] Dec, [facility] [place] [facility] [address] [id number] [place] [address] Dec, [facility] [place] [facility] [address] [id number] [place] [address] Nov, [facility] [place] [facility] [address] [id number] [place] [address] Nov, [facility] [address] [id number] [place] [address] Nov, [facility] [address] [id number] [place] [address] Nov, [facility] [address] [id number] [place] [address] Nov, [facility] [address] [id number] [place] [address] Oct, [facility] [address] [id number] [place] [address] Oct, [facility] [address] [id number] [place] [address] Oct, [facility] [place] [facility] [address] [id number] [place] [address] Oct, [facility] [place] [facility] [address] [id number] [place] [address] Oct, [facility] [address] [id number] [place] [address] Oct, [facility] [address] [facility] [id number] [address] Oct, [facility] [address] [facility] [id number], [place] [address] Oct, [facility] [address] [facility] [id number], [place] [address] Sep, IMMUNIZATIONS No Known Immunizations SOCIAL HISTORY Never Assessed REASON FOR VISIT Controlled Med Refill 10/01/18 PLAN OF CARE VITAL SIGNS MEDICATIONS Medication Instructions Dosage Frequency Start Date End Date Duration Status Tramadol HCl 50 MG Orally 3 times [...] fever, discharged 11/27/2017 11/26/2017 Hospitalization History ED [place]- Went Unrepsonsive, Hit head 2017 Hospitalization History ED [place]- Back Pain 05/05/2018
--- OUTSIDE RECORDS SUMMARY | 2019-04-16 15:51 | XMS REPORT ---
Author Author SHAHNAZ MARQUEZ [facility] Address [address] [place] [address] Care Team Providers Care Rn Urgent Care Name Role Phone SHAHNAZ MARQUEZ Unavailable PROBLEMS Type Condition ICD9-CM Code FNS95-EC Code Onset Dates Condition Status SNOMED Code Problem Reactive depression F32.9 Active 99849134 Problem Anxiety F41.9 Active 29048948 Problem Pharyngeal dysphagia R13.13 Active 89723029859836 Problem Suprapubic catheter Z93.59 Active 589705765 Problem Encounter for suprapubic catheter care Z43.5 Active 353974917 Problem Insomnia G47.00 Active 978125000 Problem Peripheral vascular disease I73.9 Active 842654925 Problem 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 Active 28286417 Problem Paroxysmal atrial fibrillation I48.0 Active 155950150 Problem Hypertension I10 Active 24070685 Problem Other chronic pain G89.29 Active 23660188 Problem Low back pain M54.5 Active 352769032 Problem Coronary artery disease I25.10 Active 16293003 Problem Type 2 diabetes mellitus without complication, without long-term current use of insulin E11.9 Active 993844248 Problem Hyperlipidemia E78.5 Active 81646338 Problem Ventral hernia without obstruction or gangrene K43.9 Active 923303007 ALLERGIES Substance Reaction Event Type Date Status Lyrica Unknown Drug Allergy Sep, Active Bactrim DS hives Drug Allergy Sep, Active Hydrochlorothiazide 50 Mg Tablet hypokalemia Non Drug Allergy Sep, Active Lisinopril 20 Mg Tablet cough Non Drug Allergy Sep, Active ENCOUNTERS Encounter Location Date Diagnosis Via [facility] [address] [place] [id number] Sep, Suprapubic catheter Z93.59 and Cervicalgia M54.2 [facility] [address] [address] [facility] [id number] [address] Sep, [facility] [address] [facility] [id number] [address] Sep, [facility] [address] [facility] [id number] [address] Sep, Via [employer] [address] [place] [id number] Aug, Cystitis N30.90 [facility] [address] [facility] [id number] [address] Aug, [facility] [address] [facility] [id number] [address] Aug, Other chronic pain G89.29 [facility] [address]00565100[place] [address] Aug, Via [employer] [address] [place] [id number] Aug, Encounter for suprapubic catheter care Z43.5 [facility] [address]00565100[place] [address] Jul, Via [employer] [address] [place] [id number] Jul, [facility] [address] [id number] [address] Jul, Other chronic pain G89.29 [facility] [address] [id number] [address] Jul, [facility] [address] [id number] [address] Jul, Via [employer] [address] [place] [id number] Jun, 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 [facility] [address] [facility] [id number] [address] Jun, Other chronic pain G89.29 [facility] [address] [id number] [address] Jun, Via [employer] [address] [place] [id number] May, Anxiety F41.9 ; Type 2 diabetes mellitus without complication, without long-term current use of insulin E11.9 ; Hypertension I10 ; Low back pain M54.5 ; Paroxysmal atrial fibrillation I48.0 and 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 [facility] [address] [id number] [address] May, Other chronic pain G89.29 [facility] [employer] [address] [place] [id number] May, Low back pain M54.5 [facility] [id number] [place] [address] May, [facility] [id number] [place] [address] Apr, Other chronic pain G89.29 [facility] [address] [id number] [place] [address] Apr, [facility] [address] [facility] [id number] [place] [address] Apr, Via [employer] [address] [place] [id number] Apr, Closed compression fracture of L3 lumbar vertebra with routine healing, subsequent encounter S32.030D [facility] [employer] [address] [place] [id number] Apr, Low back pain M54.5 [facility] [employer] [address] [place] [id number] Apr, Coccydynia M53.3 [facility] [address] [id number] [place] [address] March, [facility] [address] [facility] [id number] [place] [address] March, Other chronic pain G89.29 [facility] [id number] [place] [address] March, [facility] [address]00565100[place] [address] March, [facility] [address]00565100[place] [address] Feb, [facility] [address]00565100[place] [address] Feb, Other chronic pain G89.29 Via [facility] [address] [place] [id number] Feb, Other chronic pain G89.29 and Anxiety F41.9 [facility] [address]00565100[place] [address] Feb, [facility] [id number] [place] [address] Jan, [facility] [id number] [place] [address] Jan, [facility] [address]00565100[place] [address] Jan, [facility] [id number] [place] [address] Jan, [facility] [address]00565100[place] [address] Dec, Via [facility] [address] [place] [id number] Dec, Peripheral vascular disease I73.9 ; 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 ; Other chronic pain G89.29 ; Anxiety F41.9 ; Reactive depression F32.9 ; Insomnia G47.00 and Type 2 diabetes mellitus without complication, without long-term current use of insulin E11.[address] [id number] [place] [address] Nov, [facility] [id number] [id number] Nov, Anxiety F41.9 [facility] [address]00565100[place] [address] Nov, [facility] [id number] [address] Nov, Anxiety F41.9 Via [facility] [employer] [address] [facility] [facility] [address] [place] [id number] Nov, Status post surgery Z98.890 ; Confused R41.0 ; Anxiety F41.9 and Other chronic pain G89.29 [facility] [address] [id number] [address] Nov, Other chronic pain G89.29 [facility] [address]00565100[place] [address] Oct, [facility] [id number] [place] [id number] Oct, Other chronic pain G89.29 [facility] [address]00565100[place] [address] Oct, Anxiety F41.9 [facility] [id number] [place] [id number] Sep, Other chronic pain G89.29 [facility] [id number] [place] [id number] Sep, Via [employer] [address] [facility] [place] [id number] Aug, Dysuria R30.0 and Anxiety F41.9 [facility] [address] [id number] [address] Aug, [facility] [id number][place] [address] Aug, Other chronic pain G89.29 [facility] [address] [id number] [address] Jul, Other chronic pain G89.29 [facility] [id number][place] [address] Jun, [facility] [id number][place] [address] 15 Jun, 2017 Other chronic pain G89.29 [facility] [address]00565100[place] [address] Jun, [facility] [address]00565100[place] [address] May, Other chronic pain G89.29 [facility] [id number] [place] [address] Apr, Other chronic pain G89.29 Via [facility] [employer] [address] [place] [id number] Apr, Reactive depression F32.9 and Pharyngeal dysphagia R13.13 [facility] [id number] [place] [address] Apr, Urinary tract infection without hematuria, site unspecified N39.0 [facility] [id number] [place] [address] March, Other chronic pain G89.29 [facility] [id number] [place] [address] Feb, Other chronic pain G89.29 [facility] [address]00565100[place] [address] Feb, [facility] [id number] [place] [id number] Feb, Via [employer] [address] [place] [id number] Feb, Dysuria R30.0 and Ventral hernia without obstruction or gangrene K43.9 [facility] [id number] [place] [address] Jan, Other chronic pain G89.29 [facility] [address] [id number] [address] Dec, Other chronic pain G89.29 [facility] [id number] [place] [address] Nov, Other chronic pain G89.29 [facility] [address] [place] [id number] Nov, Lymphadenitis I88.9 [facility] [id number] [place] [address] Nov, Other chronic pain G89.29 [facility] [id number] [place] [address] Nov, [facility] [id number] [place] [id number] Nov, Other chronic pain G89.29 [facility] [address] [place] [id number] Oct, Low back pain M54.5 ; Hypertension I10 and Type 2 diabetes mellitus without complication, without long-term current use of insulin E11.9 [facility] [id number] [place] [address] Oct, [facility] [id number] [place] [address] Oct, [facility] [id number] [place] [address] Oct, [facility] [id number] [place] [address] Oct, [facility] [id number] [place] [address] Sep, [facility] [id number] [place] [address] Sep, [facility] [id number] [place] [address] Aug, Other chronic pain G89.29 [facility] [id number] [place] [address] Jul, [facility] [id number] [place] [address] Jul, [facility] [address] [facility] [id number] [address] Jul, [facility] [address]00565100[place] [address] Jun, [facility] [address]00565100[place], [place] [address] Jun, [facility] [address] [place] [id number] Jun, Low back pain M54.5 ; Other chronic pain G89.29 and Coronary artery disease I25.10 [facility] [address] [facility] [id number] [address] Jun, [facility] [address]00565100[place] [address] May, [facility] [id number] [place] [address] May, [facility] [address]00565100[place] [address] May, Other chronic pain G89.29 [facility] [address] [id number] [address] May, [facility] [id number] [address] Apr, [facility] [address]00565100[place] [address] 17 Apr, 2016 Acute cystitis without hematuria N30.00 [facility] [address] [facility] [id number] [address] 16 Apr, 2016 Acute cystitis without hematuria N30.00 ; Coronary artery disease I25.10 ; Low back pain M54.5 and Other chronic pain G89.29 [facility] [address] [facility] [id number] [address] Apr, Other chronic pain G89.29 [facility] [address]00565100[place] [address] March, Other chronic pain G89.29 [facility] [id number] [place] [address] 18 Feb, 2016 [facility] [address] [place] [address] 15 Feb, 2016 Arthritis M19.90 [facility] [id number] [place] [address] Feb, [facility] [id number] [place] [address] 30 Jan, 2016 [facility] [id number] [place] [address] Jan, [facility] [id number] [place] [address] Jan, Other chronic pain G89.29 [facility] [id number] [place] [address] Jan, Hypertension I10 ; Coronary artery disease I25.10 and Insomnia G47.00 [facility] [address]00565100[place] [address] Jan, [facility] [address]00565100[place], [place] [address] Dec, Right hip pain M25.551 [facility] [address]00565100[place] [address] Dec, [facility] [id number] [place] [address] Dec, [facility] [address]00565100[place] [address] Dec, [facility] [address] [address] Dec, Other chronic pain G89.29 [facility] [address]100[place] [address] Dec, [facility] [id number] [place] [address] Nov, [facility] [address]00565100[place] [address] Nov, Other chronic pain G89.29 [facility] [id number] [place] [address] Nov, Right hip pain M25.551 and Coronary artery disease I25.10 [facility] [id number] [place] [address] Nov, Other chronic pain G89.29 [facility] [id number] [place] [address] Oct, [facility] [id number] [place] [address] Oct, [facility] [id number] [place] [address] Sep, [facility] [id number] [place] [address] Sep, [facility] [address]00565100[place] [address] Aug, [facility] [id number] [place] [address] Aug, Hypertension I10 ; Coronary artery disease I25.10 and Arthritis M19.90 [facility] [id number] [place] [address] Jun, [facility] [address]00565100[place] [address] Jun, Essential hypertension, benign 401.1 ; Other chronic pain 338.29 and Chronic airway obstruction, not elsewhere classified 496 [facility] [id number] [place] [address] Jun, [facility] [address] [id number] [place] [address] Jun, [facility] [address] [id number] [place] [address] Jun, [facility] [address] [id number] [place] [address] May, [facility] [address] [id number] [place] [address] May, [facility] [address] [id number] [place] [address] Apr, [facility] [address] [facility] [id number] [place] [address] Apr, [facility] [address] [id number] [place] [address] Apr, [facility] [address] [id number] [place] [address] March, [facility] [address] [id number] [place] [address] March, [facility] [address] [facility] [id number] [place] [address] March, [facility] [address] [id number] [place] [address] March, [facility] [address] [id number] [place] [address] March, Sialadenitis 527.2 [facility] [address] [id number] [place] [address] Feb, [facility] [address] [id number] [place] [address] Feb, [facility] [address] [id number] [address] 29 Feb, 2015 [facility] [place] [facility] [address] [id number] [place] [address] 14 Feb, 2015 [facility] [place] [facility] [address] [id number] [place] [address] Feb, [facility] [place] [facility] [address] [facility] [id number] [place] [address] Jan, [facility] [place] [facility] [address] [id number] [place] [address] Jan, [facility] [place] [facility] [address] [id number] [place] [address] Jan, [facility] [place] [facility] [address] [facility] [id number] [place] [address] Jan, [facility] [place] [facility] [address] [facility] [id number] [place] [address] Jan, [facility] [place] [facility] [address] [facility] [id number] [address] Jan, [facility] [place] [facility] [address] [facility] [id number] [place] [address] Dec, [facility] [place] [facility] [address] [facility] [id number] [place] [address] Dec, [facility] [place] [facility] [address] [id number] [address] Dec, 2014 [facility] [place] [facility] [address] [facility] [id number] [address] Dec, 2014 [facility] [place] [facility] [address] [facility] [id number] [place] [address] Dec, [facility] [place] [facility] [address] [facility] [id number], [place] [address] Dec, [facility] [place] [facility] [address] [facility] [id number] [address] Nov, [facility] [place] [facility] [address] [id number] [place] [address] Nov, [facility] [place] [facility] [address] [id number] [place] [address] Nov, [facility] [place] [facility] [address] [id number] [place] [address] Nov, [facility] [place] [facility] [address] [id number] [place] [address] Nov, [facility] [place] [facility] [address] [id number] [place] [address] Nov, [facility] [place] [facility] [address] [id number] [place] [address] Nov, [facility] [place] [facility] [address] [id number] [place] [address] Nov, [facility] [place] [facility] [address] [id number] [place] [address] Nov, [facility] [place] [facility] [address] [id number] [place] [address] Nov, [facility] [place] [facility] [address] [id number] [place] [address] Nov, [facility] [place] [facility] [address] [id number] [place] [address] Nov, [facility] [place] [facility] [address] [id number] [place] [address] Nov, [facility] [place] [facility] [address] [id number] [place] [address] Nov, [facility] [place] [facility] [address] [id number] [place] [address] Oct, [facility] [place] [facility] [address] [id number] [place] [address] Oct, [facility] [place] [facility] [address] [id number] [place] [address] Oct, [facility] [place] [facility] [address] [id number] [place] [address] 18 Oct, 2014 [facility] [place] [facility] [address] [id number] [place] [address] Oct, [facility] [place] [facility] [address] [id number] [place] [address] Oct, [facility] [place] [facility] [address] [id number] [place] [address] Oct, [facility] [place] [facility] [address] [id number] [place] [address] Oct, [facility] [place] [facility] [address] [id number] [place] [address] Oct, [facility] [place] [facility] [address] [id number] [place] [address] Sep, [facility] [place] [facility] [address] [id number] [place] [address] Sep, [facility] [place] [facility] [address] [id number] [place] [address] Sep, [facility] [place] [facility] [address] [id number] [place] [address] Sep, [facility] [place] [facility] [address] [id number] [address] Sep, [facility] [place] [facility] [address] [id number] [address] Sep, [facility] [place] [facility] [address] [id number] [place] [address] Sep, [facility] [place] [facility] [address] [id number] [place] [address] Sep, [facility] [place] [facility] [address] [id number] [place] [address] Sep, [facility] [place] [facility] [address] [id number] [place] [address] Sep, [facility] [place] [facility] [address] [id number] [place] [address] Sep, [facility] [place] [facility] [address] [id number] [place] [address] Sep, [facility] [place] [facility] [address] [id number] [place] [address] Aug, [facility] [place] [facility] [address] [id number] [place] [address] Aug, [facility] [place] [facility] [address] [id number] [place] [address] Aug, [facility] [place] [facility] [address] [id number] [place] [address] Aug, [facility] [place] [facility] [address] [id number] [place] [address] Aug, [facility] [place] [facility] [address] [id number] [place] [address] Aug, [facility] [place] [facility] [address] [id number] [place] [address] Aug, [facility] [place] [facility] [address] [id number] [place] [address] Aug, [facility] [place] [facility] [address] [id number] [place] [address] 30 Jul, 2013 [facility] [place] [facility] [address] [address] [id number] [place] [address] 30 Sep, 2013 [facility] [place] [facility] [address] [id number] [place] [address] 30 Sep, 2013 [facility] [place] [facility] [address] [id number] [place] [address] 30 Jul, 2013 [facility] [place] [facility] [address] [id number] [place] [address] Jul, [facility] [place] [facility] [address] [id number] [place] [address] Jul, [facility] [place] [facility] [address] [id number] [place] [address] Jul, [facility] [place] [facility] [address] [id number] [place] [address] Jul, [facility] [place] [facility] [address] [id number] [place] [address] Jul, [facility] [place] [facility] [address] [id number] [place] [address] Jul, [facility] [place] [facility] [address] [id number] [place] [address] Jun, [facility] [place] [facility] [address] [id number] [place] [address] Jun, [facility] [place] [facility] [address] [id number] [place] [address] Jun, [facility] [place] [facility] [address] [id number] [place] [address] Jun, [facility] [place] [facility] [address] [id number] [place] [address] Jun, [facility] [place] [facility] [address] [id number] [place] [address] Jun, [facility] [place] [facility] [address] [id number] [place] [address] Jun, [facility] [place] [facility] [address] [id number] [place] [address] Jun, [facility] [place] [facility] [address] [id number] [place] [address] Jun, [facility] [place] [facility] [address] [id number] [place] [address] Jun, [facility] [place] [facility] [address] [id number] [place] [address] Jun, [facility] [place] [facility] [address] [id number] [place] [address] Jun, [facility] [place] [facility] [address] [id number] [place] [address] Jun, [facility] [place] [facility] [address] [id number] [place] [address] Jun, [facility] [place] [facility] [address] [id number] [place] [address] Jun, [facility] [place] [facility] [address] [id number] [place] [address] Jun, [facility] [place] [facility] [address] [id number] [place] [address] Jun, [facility] [place] [facility] [address] [id number] [place] [address] Jun, [facility] [place] [facility] [address] [id number] [place] [address] Jun, [facility] [place] [facility] [address] [id number] [place] [address] Jun, [facility] [place] [facility] [address] [id number] [place] [address] Jun, [facility] [place] [facility] [address] [id number] [place] [address] Jun, [facility] [place] [facility] [address] [id number] [place] [address] May, [facility] [place] [facility] [address] [id number] [place] [address] May, [facility] [place] [facility] [address] [id number] [place] [address] May, [facility] [place] [facility] [address] [id number] [place] [address] May, [facility] [place] [facility] [address] [id number] [place] [address] May, 2013 [facility] [place] [facility] [address] [id number] [place] [address] May, 2013 [facility] [place] [facility] [address] [id number] [place] [address] May, 2013 [facility] [place] [facility] [address] [id number] [place] [address] May, 2013 [facility] [place] [facility] [address] [id number] [place] [address] May, 2013 [facility] [place] [facility] [address] [id number] [place] [address] May, [facility] [place] [facility] [address] [id number] [place] [address] May, [facility] [place] [facility] [address] [id number] [place] [address] May, [facility] [place] [facility] [address] [id number] [place] [address] May, [facility] [place] [facility] [address] [id number] [place] [address] Apr, [facility] [place] [facility] [address] [id number] [place] [address] Apr, [facility] [place] [facility] [address] [id number] [place] [address] Apr, [facility] [place] [facility] [address] [id number] [place] [address] Apr, [facility] [place] [facility] [address] [id number] [place] [address] Apr, [facility] [place] [facility] [address] [id number] [place] [address] Apr, [facility] [place] [facility] [address] [id number] [place] [address] Apr, [facility] [place] [facility] [address] [id number] [place] [address] Apr, [facility] [place] [facility] [address] [id number] [place] [address] Apr, [facility] [place] [facility] [address] [id number] [place] [address] March, [facility] [place] [facility] [address] [id number] [place] [address] March, [facility] [place] [facility] [address] [id number] [place] [address] March, [facility] [place] [facility] [address] [id number] [place] [address] March, [facility] [place] [facility] [address] [id number] [place] [address] March, [facility] [place] [facility] [address] [id number] [place] [address] March, [facility] [place] [facility] [address] [id number] [place] [address] March, [facility] [place] [facility] [address] [id number] [place] [address] March, [facility] [place] [facility] [address] [id number] [place] [address] March, [facility] [place] [facility] [address] [id number] [place] [address] March, [facility] [place] [facility] [address] [id number] [place] [address] March, [facility] [place] [facility] [address] [id number] [place] [address] March, [facility] [place] [facility] [address] [id number] [place] [address] March, [facility] [place] [facility] [address] [id number] [place] [address] March, [facility] [address] [id number] [place] [address] March, [facility] [place] [facility] [address] [id number] [place] [address] March, [facility] [place] [facility] [address] [id number] [place] [address] March, [facility] [place] [facility] [address] [id number] [place] [address] March, [facility] [place] [facility] [address] [id number] [place] [address] March, [facility] [place] [facility] [address] [id number] [place] [address] March, [facility] [address] [id number] [place] [address] Feb, [facility] [place] [facility] [address] [id number] [place] [address] Feb, [facility] [place] [facility] [address] [id number] [place] [address] Feb, [facility] [place] [facility] [address] [id number] [place] [address] Feb, [facility] [place] [facility] [address] [id number] [place] [address] Feb, [facility] [place] [facility] [address] [id number] [place] [address] Feb, [facility] [place] [facility] [address] [id number] [place] [address] Feb, [facility] [place] [facility] [address] [id number] [place] [address] Feb, [facility] [place] [facility] [address] [id number] [place] [address] Jan, [facility] [place] [facility] [address] [id number] [place] [address] Jan, [facility] [place] [facility] [address] [id number] [place] [address] Jan, [facility] [place] [facility] [address] [id number] [place] [address] Jan, [facility] [place] [facility] [address] [id number] [place] [address] Jan, [facility] [place] [facility] [address] [id number] [place] [address] Jan, [facility] [place] [facility] [address] [id number] [place] [address] Jan, [facility] [place] [facility] [address] [facility] [id number] [place] [address] Jan, [facility] [place] [facility] [address] [id number] [place] [address] Jan, [facility] [place] [facility] [address] [id number] [place] [address] Jan, [facility] [place] [facility] [address] [id number] [place] [address] 27 Dec, 2013 [facility] [place] [facility] [address] [id number] [place] [address] Dec, [facility] [place] [facility] [address] [id number] [place] [address] Dec, [facility] [place] [facility] [address] [id number] [place] [address] 2013 [facility] [place] [facility] [address] [id number] [place] [address] 2013 [facility] [place] [facility] [address] [id number] [place] [address] 13 Dec, 2013 [facility] [place] [facility] [address] [id number] [address] Dec, [facility] [address] [id number] [place] [address] Dec, [facility] [place] [facility] [address] [id number] [place] [address] Nov, [facility] [address] [id number] [place] [address] Nov, [facility] [place] [facility] [address] [id number] [place] [address] Nov, [facility] [place] [facility] [address] [id number] [place] [address] Nov, [facility] [place] [facility] [address] [id number] [place] [address] Nov, [facility] [address] [id number] [place] [address] Nov, [facility] [place] [facility] [address] [id number] [place] [address] Nov, [facility] [place] [facility] [address] [id number] [place] [address] Nov, [facility] [place] [facility] [address] [id number] [place] [address] Nov, [facility] [place] [facility] [address] [id number] [place] [address] Nov, [facility] [place] [facility] [address] [id number] [place] [address] Nov, [facility] [place] [facility] [address] [id number] [place] [address] Nov, [facility] [place] [facility] [address] [id number] [place] [address] Nov, [facility] [place] [facility] [address] [id number] [place] [address] Oct, [facility] [place] [facility] [address] [id number] [place] [address] 30 Oct, 2013 [facility] [place] [facility] [address] [id number] [place] [address] Oct, [facility] [place] [facility] [address] [id number] [place] [address] Oct, [facility] [place] [facility] [address] [id number] [place] [address] Oct, [facility] [place] [facility] [address] [id number] [place] [address] Oct, [facility] [place] [facility] [address] [id number] [place] [address] Oct, [facility] [place] [facility] [address] [id number] [place] [address] 18 Oct, 2013 [facility] [place] [facility] [address] [id number] [place] [address] 17 Oct, 2013 [facility] [place] [facility] [address] [id number] [place] [address] 17 Oct, 2013 [facility] [place] [facility] [address] [id number] [place] [address] Oct, [facility] [place] [facility] [address] [id number] [place] [address] 03 Oct, 2013 [facility] [place] [facility] [address] [id number] [place] [address] 02 Oct, 2013 [facility] [place] [facility] [address] [id number] [place] [address] 02 Oct, 2013 [facility] [place] [facility] [address] [id number] [place] [address] 14 Sep, 2013 [facility] [place] [facility] [address] [id number] [place] [address] 14 Sep, 2013 [facility] [place] [facility] [address] [id number] [place] [address] Sep, [facility] [place] [facility] [address] [id number], [place] [address] Sep, [facility] [place] [facility] [address] [id number] [address] Sep, [facility] [place] [facility] [address] [id number], [place] [address] Sep, [facility] [place] [facility] [address] [id number] [address] Sep, [facility] [place] [facility] [address] [id number] [place] [address] Sep, [facility] [place] [facility] [address] [id number] [address] Sep, [facility] [place] [facility] [address] [id number], [place] [address] Sep, [facility] [place] [facility] [address] [id number][place] [address] Aug, [facility] [place] [facility] [address] [id number], [place] [address] Aug, [facility] [place] [facility] [address] [id number], [place] [address] Aug, [facility] [place] [facility] [address] [id number], [place] [address] Aug, [facility] [place] [facility] [address] [id number], [place] [address] Aug, [facility] [place] [facility] [address] [id number][place] [address] Aug, [facility] [place] [facility] [address] [id number], [place] [address] Aug, [facility] [place] [facility] [address] [id number] [address] Aug, [facility] [place] [facility] [address] [id number] [place] [address] 22 Aug, 2012 [facility] [place] [facility] [address] [id number] [place] [address] 22 Aug, 2012 [facility] [place] [facility] [address] [id number] [place] [address] 18 Aug, 2012 [facility] [place] [facility] [address] [id number] [place] [address] 18 Aug, 2012 [facility] [place] [facility] [address] [id number] [place] [address] 18 Aug, 2012 [facility] [place] [facility] [address] [id number] [place] [address] 18 Aug, 2013 [facility] [place] [facility] [address] [id number] [place] [address] 17 Aug, 2013 [facility] [place] [facility] [address] [id number] [place] [address] 14 Aug, 2013 [facility] [place] [facility] [address] [id number] [place] [address] 14 Aug, 2013 [facility] [place] [facility] [address] [id number] [place] [address] 01 Aug, 2013 [facility] [place] [facility] [address] [id number] [place] [address] 20 Jul, 2012 [facility] [place] [facility] [address] [id number] [place] [address] 19 Jul, 2012 [facility] [place] [facility] [address] [id number] [place] [address] 18 Jul, 2012 [facility] [place] [facility] [address] [id number] [place] [address] 11 Jul, 2013 [facility] [place] [facility] [address] [id number] [place] [address] 11 Jul, 2012 [facility] [place] [facility] [address] [id number] [place] [address] Jun, [facility] [place] [facility] [address] [id number] [place] [address] Jun, [facility] [place] [facility] [address] [id number] [place] [address] Jun, [facility] [place] [facility] [address] [id number] [place] [address] Jun, [facility] [place] [facility] [address] [id number] [place] [address] Jun, [facility] [place] [facility] [address] [id number] [place] [address] Jun, [facility] [place] [facility] [address] [id number] [place] [address] Jun, [facility] [place] [facility] [address] [id number] [place] [address] Jun, [facility] [place] [facility] [address] [id number] [place] [address] Jun, [facility] [place] [facility] [address] [id number] [place] [address] Jun, [facility] [place] [facility] [address] [id number] [place] [address] May, [facility] [place] [facility] [address] [id number] [place] [address] May, [facility] [place] [facility] [address] [id number] [place] [address] May, [facility] [place] [facility] [address] [id number] [place] [address] May, [facility] [place] [facility] [address] [id number] [place] [address] May, [facility] [place] [facility] [address] [id number] [place] [address] May, [facility] [place] [facility] [address] [id number] [place] [address] May, [facility] [address] [id number] [place] [address] May, [facility] [place] [facility] [address] [id number] [place] [address] May, [facility] [place] [facility] [address] [id number] [place] [address] Apr, [facility] [place] [facility] [address] [id number] [place] [address] Apr, [facility] [place] [facility] [address] [id number] [place] [address] Apr, [facility] [place] [facility] [address] [id number] [place] [address] Apr, [facility] [place] [facility] [address] [id number] [place] [address] Apr, [facility] [place] [facility] [address] [id number] [place] [address] Apr, [facility] [place] [facility] [address] [id number] [place] [address] Apr, [facility] [place] [facility] [address] [id number] [place] [address] March, [facility] [place] [facility] [address] [id number] [place] [address] Feb, [facility] [place] [facility] [address] [id number] [place] [address] Feb, [facility] [place] [facility] [address] [id number] [place] [address] Feb, [facility] [place] [facility] [address] [id number] [place] [address] Jan, [facility] [place] [facility] [address] [id number] [place] [address] Jan, [facility] [place] [facility] [address] [id number] [place] [address] 19 Jan, 2013 [facility] [address] [id number] [place] [address] 14 Jan, 2013 [facility] [place] [facility] [address] [id number] [place] [address] 12 Jan, 2013 [facility] [address] [id number] [place] [address] 08 Jan, 2013 [facility] [place] [facility] [address] [id number] [place] [address] 07 Jan, 2013 [facility] [address] [id number] [place] [address] 04 Jan, 2013 [facility] [address] [id number] [place] [address] 28 Dec, 2012 [facility] [address] [id number] [place] [address] 25 Dec, 2012 [facility] [address] [id number] [place] [address] 13 Dec, 2012 [facility] [address] [id number] [place] [address] Dec, [facility] [address] [facility] [id number] [place] [address] 07 Dec, 2012 [facility] [address] [id number] [place] [address] 06 Dec, 2012 [facility] [place] [facility] [address] [id number] [place] [address] 05 Dec, 2012 [facility] [place] [facility] [address] [id number] [place] [address] Nov, [facility] [place] [facility] [address] [id number] [place] [address] 24 Nov, 2012 [facility] [place] [facility] [address] [id number] [place] [address] 18 Nov, 2012 [facility] [address] [id number] [place] [address] 15 Nov, 2012 [facility] [place] [facility] [address] [id number] [place] [address] Nov, [facility] [place] [facility] [address] [id number] [place] [address] Nov, [facility] [place] [facility] [address] [id number] [place] [address] Nov, [facility] [place] [facility] [address] [id number] [place] [address] Oct, [facility] [place] [facility] [address] [id number] [place] [address] Oct, [facility] [place] [facility] [address] [id number] [place] [address] Oct, [facility] [place] [facility] [address] [id number] [place] [address] Oct, [facility] [place] [facility] [address] [id number] [place] [address] Oct, [facility] [place] [facility] [address] [id number] [place] [address] Oct, [facility] [place] [facility] [address] [id number] [place] [address] 07 Oct, 2012 [facility] [place] [facility] [address] [id number] [place] [address] 07 Oct, 2012 [facility] [place] [facility] [address] [id number] [place] [address] 05 Oct, 2012 [facility] [place] [facility] [address] [id number] [place] [address] 05 Oct, 2012 [facility] [place] [facility] [address] [id number] [place] [address] Oct, [facility] [place] [facility] [address] [id number] [place] [address] Oct, [facility] [place] [facility] [address] [id number] [place] [address] Sep, [facility] [place] [facility] [address] [id number] [place] [address] Sep, [facility] [place] [facility] [address] [id number] [place] [address] Sep, [facility] [place] [facility] [address] [id number] [place] [address] Sep, [facility] [place] [facility] [address] [id number] [place] [address] Sep, [facility] [place] [facility] [address] [id number] [place] [address] Sep, [facility] [place] [facility] [address] [id number] [place] [address] Sep, [facility] [place] [facility] [address] [id number] [place] [address] Sep, [facility] [place] [facility] [address] [id number] [place] [address] Sep, [facility] [place] [facility] [address] [facility] [id number] [place] [address] Sep, [facility] [place] [facility] [address] [id number] [place] [address] Sep, [facility] [place] [facility] [address] [id number] [address] Aug, [facility] [place] [facility] [address] [id number] [place] [address] Aug, [facility] [place] [facility] [address] [facility] [id number] [place] [address] Aug, [facility] [place] [facility] [address] [id number] [place] [address] Aug, [facility] [place] [facility] [address] [id number] [place] [address] Aug, [facility] [place] [facility] [address] [id number] [place] [address] Aug, [facility] [place] [facility] [address] [id number] [place] [address] Aug, [facility] [place] [facility] [address] [id number] [place] [address] Aug, [facility] [place] [facility] [address] [id number] [place] [address] Aug, [facility] [place] [facility] [address] [id number] [place] [address] Aug, [facility] [place] [facility] [address] [id number] [place] [address] Jul, [facility] [place] [facility] [address] [id number] [place] [address] 20 Jul, 2012 [facility] [place] [facility] [address] [id number] [place] [address] Jul, [facility] [place] [facility] [address] [id number] [address] 06 Jul, 2012 [facility] [place] [facility] [address] [id number], [place] [address] 30 Jun, 2012 [facility] [place] [facility] [address] [id number], [place] [address] Jun, [facility] [place] [facility] [address] [id number] [place] [address] Jun, [facility] [place] [facility] [address] [id number], [place] [address] Jun, [facility] [place] [facility] [address] [id number], [place] [address] Jun, [facility] [place] [facility] [address] [id number], [place] [address] Jun, [facility] [place] [facility] [address] [id number] [place] [address] Jun, [facility] [place] [facility] [address] [id number] [place] [address] May, [facility] [place] [facility] [address] [id number] [place] [address] May, [facility] [place] [facility] [address] [id number] [place] [address] May, [facility] [place] [facility] [address] [id number] [place] [address] May, [facility] [place] [facility] [address] [id number] [place] [address] May, [facility] [place] [facility] [address] [id number] [place] [address] Apr, [facility] [place] [facility] [address] [id number] [place] [address] Apr, [facility] [place] [facility] [address] [id number] [place] [address] Apr, [facility] [place] [facility] [address] [id number] [place] [address] Apr, [facility] [place] [facility] [address] [id number] [place] [address] Apr, [facility] [place] [facility] [address] [id number] [place] [address] March, [facility] [place] [facility] [address] [id number] [place] [address] March, [facility] [place] [facility] [address] [id number] [place] [address] March, [facility] [place] [facility] [address] [id number] [place] [address] March, [facility] [place] [facility] [address] [id number] [place] [address] March, [facility] [place] [facility] [address] [id number] [place] [address] March, [facility] [place] [facility] [address] [id number] [place] [address] March, [facility] [place] [facility] [address] [id number] [place] [address] March, [facility] [place] [facility] [address] [id number] [place] [address] March, [facility] [place] [facility] [address] [id number] [place] [address] March[facility] [place] [facility] [address] [id number] [place] [address] Feb, [facility] [place] [facility] [address] [id number] [place] [address] Feb, [facility] [place] [facility] [address] [id number] [place] [address] Feb, [facility] [place] [facility] [address] [id number] [place] [address] Feb, [facility] [place] [facility] [address] [id number] [place] [address] Feb, [facility] [place] [facility] [address] [id number] [place] [address] Feb, [facility] [place] [facility] [address] [id number] [place] [address] Feb, [facility] [place] [facility] [address] [id number] [place] [address] Feb, [facility] [place] [facility] [address] [id number] [place] [address] Feb, [facility] [place] [facility] [address] [id number] [place] [address] 08 Jan, 2012 [facility] [place] [facility] [address] [id number] [place] [address] 07 Jan, 2012 [facility] [place] [facility] [address] [id number] [place] [address] 05 Jan, 2012 [facility] [place] [facility] [address] [id number] [place] [address] Jan, [facility] [place] [facility] [address] [id number] [place] [address] Dec, [facility] [place] [facility] [address] [id number] [place] [address] Dec, [facility] [place] [facility] [address] [id number] [place] [address] Nov, [facility] [place] [facility] [address] [id number] [place] [address] Nov, [facility] [place] [facility] [address] [id number] [place] [address] Nov, [facility] [place] [facility] [address] [id number] [place] [address] Nov, [facility] [place] [facility] [address] [id number] [place] [address] Nov, [facility] [place] [facility] [address] [id number] [place] [address] Oct, [facility] [place] [facility] [address] [id number] [place] [address] Oct, [facility] [place] [facility] [address] [id number] [place] [address] Oct, [facility] [place] [facility] [address] [id number] [place] [address] Oct, [facility] [place] [facility] [address] [id number] [place] [address] Oct, [facility] [place] [facility] [address] [facility] [address] [facility] [id number] [address] Oct, [facility] [address] [facility] [id number] [address] Oct, [facility] [address] [facility] [id number] [address] Oct, [facility] [address] [facility] [id number] [address] Sep, IMMUNIZATIONS No Known Immunizations SOCIAL HISTORY Never Assessed REASON FOR VISIT Neck Pain PLAN OF CARE Activity Details Follow Up prn Reason: VITAL SIGNS MEDICATIONS Medication Instructions Dosage Frequency Start Date End Date Duration Status BuPROPion HCl ER (XL) 300 MG Orally Once a day at HS 1 tablet in the morning Active Symbicort 160-4.5 MCG/ACT Inhalation Twice a day 2 puffs 12h Active MetFORMIN HCl ER 500 MG Orally Once a day 1 tablet with evening meal 24h Active Eliquis 5 mg Orally 2 times a day 1 tablet 12h Active Escitalopram Oxalate 20 MG Orally Once a day 1 tablet 24h Nov, 30 day(s) Active Albuterol Sulfate HFA 108 (90 Base) MCG/ACT Inhalation every 6 hrs 2 puffs as needed 6h Nov, Active Gabapentin 400 MG Orally Three times a day 1 capsule 8h Active Triamcinolone Acetonide 0.5 % Externally Twice a day x 14 days and then prn 1 application to affected area Jun, Active Tamsulosin HCl 0.4 MG Orally Once a day 1 capsule 24h Active Atorvastatin Calcium 40 MG Orally Once a day 1 tablet 24h Oct, 30 day(s) Active Potassium Chloride Radha ER 20 meq Orally q48H TAKES WITH FUROSEMIDE 2 tablet with food Active Ondansetron HCl 4 MG Orally every 6 hours as needed NAUSEA/VOMITING 1 tablets Active MiraLax 17 gm/dose Orally Once a day 17 grams mixed in 8 oz of water or juice 24h Apr, Active Metoprolol Tartrate 50 MG Orally Twice a day 1 tablet with food 12h Active Aspirin 81 MG Orally Once a day 1 tablet 24h 30 day(s) Active Lorazepam 0.5 MG Orally Once a day 1 tablet at betime 24h Apr, 28 days Active Furosemide 20 mg Orally every other day 1 tablet Active Estradiol 0.1 MG/GM Vaginal as needed 1 application to skin Active Tylenol 325 MG Orally every 4 hrs 2 tablets as needed 4h 24 Feb, 2018 Active Trazodone HCl 50 mg Orally at bedtime 1/2 tablet Active Oxybutynin Chloride ER 10 MG 1 TABLET BY MOUTH EVERY DAY FOR UNINHIBITED NEUROPATHC BLADDER, NEC Active Tramadol HCl 50 mg Orally 3 times a day 1 tablet 8h Dec, Sep, 28 days Active RESULTS No Results PROCEDURES Procedure Date Ordered Result Body Site Minor complication (15 mins) Sep 30, 2018 INSTRUCTIONS MEDICATIONS ADMINISTERED No Known Medications MEDICAL (GENERAL) HISTORY Type Description Date 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
--- OUTSIDE RECORDS SUMMARY | 2019-04-16 15:52 | XMS REPORT ---
Author Author SHAHNAZ MARQUEZ [facility] Address [address] [place] [address] Care Team Providers Care Imaging Technologist Name Role Phone SHAHNAZ MARQUEZ Unavailable PROBLEMS Type Condition ICD9-CM Code SZF13-KN Code Onset Dates Condition Status SNOMED Code Problem Reactive depression F32.9 Active 54299409 Problem Anxiety F41.9 Active 39531004 Problem Pharyngeal dysphagia R13.13 Active 19237844418482 Problem Suprapubic catheter Z93.59 Active 949334661 Problem Encounter for suprapubic catheter care Z43.5 Active 861555493 Problem Insomnia G47.00 Active 320276015 Problem Peripheral vascular disease I73.9 Active 729602460 Problem 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 Active 22468735 Problem Paroxysmal atrial fibrillation I48.0 Active 434948438 Problem Hypertension I10 Active 42084701 Problem Other chronic pain G89.29 Active 65789384 Problem Low back pain M54.5 Active 128041297 Problem Coronary artery disease I25.10 Active 74631380 Problem Type 2 diabetes mellitus without complication, without long-term current use of insulin E11.9 Active 692759082 Problem Hyperlipidemia E78.5 Active 31900061 Problem Ventral hernia without obstruction or gangrene K43.9 Active 621991970 ALLERGIES No Information ENCOUNTERS Encounter Location Date Diagnosis [facility] [address] [facility] [place] [id number] Sep, [facility] [address] [facility] [id number], [place] [address] Sep, [facility] [address] [facility] [id number], [place] [address] Sep, [facility] [address] [facility] [id number], [place] [address] Sep, [facility] [address] [facility] [place] [id number] Aug, Cystitis N30.90 [facility] [address] [facility] [id number], [place] [address] Aug, [facility] [address]00565[address] [address] Aug, Other chronic pain G89.29 [facility] [id number] [place] [address] Aug, [facility] [employer] [address] [place] [id number] Aug, Encounter for suprapubic catheter care Z43.5 [place] [facility] [id number] [place] [address] Jul, [facility] [employer] [address] [place] [id number] Jul, [facility] [address]00565100[place], [place] [address] Jul, Other chronic pain G89.29 [facility] [address]00565100[place] [address] Jul, [place] [id number] [place] [address] Jul, [facility] [employer] [address] [place] [id number] Jun, 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 [place] [address] [id number] [address] Jun, Other chronic pain G89.29 [facility] [address] [facility] [id number], [place] [address] Jun, [facility] [employer] [address] [place] [id number] May, Anxiety F41.9 ; Type 2 diabetes mellitus without complication, without long-term current use of insulin E11.9 ; Hypertension I10 ; Low back pain M54.5 ; Paroxysmal atrial fibrillation I48.0 and 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 [facility] [address] [id number], [place] [address] May, Other chronic pain G89.29 [facility] [employer] [address] [place] [id number] May, Low back pain M54.5 [facility] [address] [id number], [place] [address] May, [facility] [address] [id number], [place] [address] Apr, Other chronic pain G89.29 [facility] [address] [id number], [place] [address] Apr, [facility] [address] [id number], [place] [address] Apr, [facility] [employer] [address] [place] [id number] Apr, Closed compression fracture of L3 lumbar vertebra with routine healing, subsequent encounter S32.030D [facility] [employer] [address] [place] [id number] Apr, Low back pain M54.5 [facility] [employer] [address] [place] [id number] Apr, Coccydynia M53.3 [facility] [address] [id number], [place] [address] March, [facility] [address] [id number], [place] [address] March, Other chronic pain G89.29 [facility] [address] [id number], [place] [address] March, [facility] [address] [facility] [id number], [place] [address] March, [facility] [address] [facility] [id number], [place] [address] Feb, [facility] [address] [id number] [address] Feb, Other chronic pain G89.29 [facility] [address] [place] [id number] Feb, Other chronic pain G89.29 and Anxiety F41.9 [facility] [address]00565100[place], [place] [address] Feb, [facility] [id number] [place] [address] Jan, [facility] [id number] [place] [address] Jan, [facility] [id number] [place] [address] Jan, [facility] [id number] [place] [address] Jan, [facility] [id number] [place] [address] Dec, [facility] [employer] [address] [place] [id number] Dec, Peripheral vascular disease I73.9 ; 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 ; Other chronic pain G89.29 ; Anxiety F41.9 ; Reactive depression F32.9 ; Insomnia G47.00 and Type 2 diabetes mellitus without complication, without long-term current use of insulin E11.9 [facility] [address] [id number] [place] [address] Nov, [facility] [address] [id number] [id number] Nov, Anxiety F41.9 [facility] [address] [id number], [place] [address] Nov, [facility] [address] [id number] [id number] Nov, Anxiety F41.9 [facility] [facility] [address] [place] [id number] Nov, Status post surgery Z98.890 ; Confused R41.0 ; Anxiety F41.9 and Other chronic pain G89.29 [facility] [id number] [place] [id number] Nov, Other chronic pain G89.29 [facility] [id number] [place] [address] Oct, [facility] [id number] [place] [id number] Oct, Other chronic pain G89.29 [facility] [id number] [place] [address] Oct, Anxiety F41.9 [facility] [address] [id number] Sep, Other chronic pain G89.29 [facility] [id number] [place] [id number] Sep, [facility] [address] [place] [id number] Aug, Dysuria R30.0 and Anxiety F41.9 [facility] [id number] [place] [address] Aug, [facility] [id number] [place] [id number] Aug, Other chronic pain G89.29 [facility] [id number] [place] [address] Jul, Other chronic pain G89.29 [facility] [id number] [place] [id number] Jun, [facility] [id number] [place] [id number] Jun, Other chronic pain G89.29 [facility] [id number] [place] [address] Jun, [facility] [id number] [place] [address] May, Other chronic pain G89.29 [facility] [id number] [place] [address] Apr, Other chronic pain G89.29 [facility] [address] [place] [id number] Apr, Reactive depression F32.9 and Pharyngeal dysphagia R13.13 [place] [id number] [place] [address] Apr, Urinary tract infection without hematuria, site unspecified N39.0 [place] [id number] [place] [address] March, Other chronic pain G89.29 [place] [facility] [id number] [place] [address] Feb, Other chronic pain G89.29 [place] [id number] [place] [address] Feb, [facility] [id number] [place] [id number] Feb, [facility] [employer] [address] [place] [id number] Feb, Dysuria R30.0 and Ventral hernia without obstruction or gangrene K43.9 [place] [id number] [place] [address] Jan, Other chronic pain G89.29 [facility] [id number] [place] [id number] Dec, Other chronic pain G89.29 [facility] [id number] [place] [address] Nov, Other chronic pain G89.29 [facility] [employer] [address] [place] [id number] Nov, Lymphadenitis I88.9 [facility] [id number] [place] [address] Nov, Other chronic pain G89.29 [facility] [address] [facility] [id number], [place] [address] Nov, [facility] [place] [facility] [id number] [place] [id number] Nov, Other chronic pain G89.[address] [facility] [address] [place] [id number] Oct, Low back pain M54.5 ; Hypertension I10 and Type 2 diabetes mellitus without complication, without long-term current use of insulin E11.9 [facility] [address] [facility] [id number] [place] [address] Oct, [facility] [address] [facility] [id number] [place] [address] Oct, [facility] [id number] [place] [address] Oct, [facility] [id number] [place] [address] Oct, [facility] [id number] [place] [address] Sep, [facility] [id number] [place] [address] Sep, [facility] [id number] [place] [address] Aug, Other chronic pain G89.29 [facility] [address] [facility] [id number], [place] [address] Jul, [facility] [address] [facility] [id number] [place] [address] Jul, [facility] [id number] [place] [address] Jul, [facility] [id number] [place] [address] Jun, [facility] [address]00565100[place], [place] [address] Jun, [facility] [address] [place] [id number] Jun, Low back pain M54.5 ; Other chronic pain G89.29 and Coronary artery disease I25.10 [facility] [address]00565100[place], [place] [address] Jun, [facility] [id number] [place] [address] May, [facility] [id number] [place] [address] May, [facility] [id number] [place] [address] May, Other chronic pain G89.29 [facility] [id number] [place] [address] May, [facility] [address]65100[place], [place] [address] Apr, [facility] [id number] [place] [address] Apr, Acute cystitis without hematuria N30.00 [facility] [address]65[address], [place] [address] 16 Apr, 2016 Acute cystitis without hematuria N30.00 ; Coronary artery disease I25.10 ; Low back pain M54.5 and Other chronic pain G89.29 [facility] [address]65[address], [place] [address] Apr, Other chronic pain G89.29 [facility] [id number] [place] [address] March, Other chronic pain G89.29 [facility] [address]65[address], [place] [address] Feb, [facility] [address] [id number], [place] [address] 15 Feb, 2016 Arthritis M19.90 [facility] [id number] [place] [address] 13 Feb, 2016 [facility] [address] [id number], [place] [address] 30 Jan, 2016 [facility] [id number] [place] [address] Jan, [facility] [id number] [place] [address] Jan, Other chronic pain G89.29 [facility] [id number] [place] [address] Jan, Hypertension I10 ; Coronary artery disease I25.10 and Insomnia G47.00 [facility] [id number] [place] [address] Jan, [facility] [id number] [place] [address] Dec, Right hip pain M25.551 [facility] [id number] [place] [address] Dec, [facility] [address] [id number], [place] [address] Dec, [facility] [address]65100[place], [place] [address] Dec, [facility] [address], [place] [address] Dec, Other chronic pain G89.29 [facility] [address]65100[place], [place] [address] Dec, [facility] [address]65[address], [place] [address] Nov, [facility] [id number] [place] [address] Nov, Other chronic pain G89.29 [facility] [id number] [place] [address] Nov, Right hip pain M25.551 and Coronary artery disease I25.10 [facility] [id number] [place] [address] Nov, Other chronic pain G89.29 [facility] [id number] [place] [address] Oct, [facility] [address] [address] Oct, [facility] [id number] [place] [address] Sep, [facility] [address] [address] Sep, [facility] [id number] [place] [address] Aug, [facility] [id number] [place] [address] Aug, Hypertension I10 ; Coronary artery disease I25.10 and Arthritis M19.90 [facility] [id number] [place] [address] Jun, [facility] [id number] [place] [address] Jun, Essential hypertension, benign 401.1 ; Other chronic pain 338.29 and Chronic airway obstruction, not elsewhere classified 496 [facility] [id number] [place] [address] Jun, [facility] [id number] [place] [address] Jun, [facility] [id number] [place] [address] Jun, [facility] [address] [id number] [place] [address] May, [facility] [address] [id number] [place] [address] May, [facility] [address] [facility] [id number] [place] [address] Apr, [facility] [address] [id number] [place] [address] Apr, [facility] [address] [id number] [place] [address] Apr, [facility] [address] [facility] [id number] [place] [address] March, [facility] [address] [facility] [id number] [place] [address] March, [facility] [address] [facility] [id number] [place] [address] March, [facility] [address] [id number] [place] [address] March, [facility] [address] [facility] [id number] [place] [address] March, Sialadenitis 527.2 [facility] [address] [facility] [id number] [place] [address] Feb, [facility] [address] [id number] [place] [address] Feb, [facility] [address] [id number] [place] [address] Feb, [facility] [address] [facility] [id number] [place] [address] Feb, [facility] [address] [facility] [id number] [place] [address] Feb, [facility] [place] [facility] [address] [id number] [place] [address] Jan, [facility] [place] [facility] [address] [id number] [place] [address] Jan, [facility] [place] [facility] [address] [id number] [place] [address] Jan, [facility] [place] [facility] [address] [id number] [place] [address] Jan, [facility] [place] [facility] [address] [id number] [place] [address] Jan, [facility] [place] [facility] [address] [id number] [place] [address] Jan, [facility] [place] [facility] [address] [facility] [id number] [place] [address] Dec, [facility] [place] [facility] [address] [id number] [place] [address] Dec, 2014 [facility] [place] [facility] [address] [id number] [place] [address] Dec, [facility] [place] [facility] [address] [facility] [id number] [place] [address] Dec, [facility] [place] [facility] [address] [facility] [id number] [place] [address] Dec, [facility] [place] [facility] [address] [id number], [place] [address] Dec, [facility] [place] [facility] [address] [id number] [place] [address] Nov, [facility] [place] [facility] [address] [id number] [place] [address] Nov, [facility] [place] [facility] [address] [facility] [id number], [place] [address] Nov, [facility] [place] [facility] [address] [id number], [place] [address] Nov, [facility] [address] [id number] [place] [address] Nov, [facility] [place] [facility] [address] [id number] [place] [address] Nov, [facility] [place] [facility] [address] [id number] [place] [address] Nov, [facility] [place] [facility] [address] [id number] [place] [address] Nov, [facility] [place] [facility] [address] [id number] [place] [address] Nov, [facility] [place] [facility] [address] [id number] [place] [address] Nov, [facility] [place] [facility] [address] [id number] [place] [address] Nov, [facility] [place] [facility] [address] [id number] [place] [address] Nov, [facility] [place] [facility] [address] [id number] [place] [address] Nov, [facility] [place] [facility] [address] [id number] [place] [address] Nov, [facility] [place] [facility] [address] [id number] [place] [address] Oct, [facility] [place] [facility] [address] [id number] [place] [address] Oct, [facility] [place] [facility] [address] [id number] [place] [address] Oct, [facility] [place] [facility] [address] [id number] [place] [address] Oct, [facility] [place] [facility] [address] [id number] [place] [address] Oct, [facility] [place] [facility] [address] [id number] [place] [address] 17 Oct, 2014 [facility] [place] [facility] [address] [id number] [place] [address] Oct, [facility] [place] [facility] [address] [id number] [place] [address] Oct, [facility] [place] [facility] [address] [id number] [place] [address] Oct, [facility] [place] [facility] [address] [id number] [place] [address] Sep, [facility] [place] [facility] [address] [id number] [place] [address] Sep, [facility] [place] [facility] [address] [id number] [place] [address] Sep, [facility] [place] [facility] [address] [id number] [place] [address] Sep, [facility] [place] [facility] [address] [id number] [place] [address] Sep, [facility] [place] [facility] [address] [id number] [place] [address] Sep, [facility] [place] [facility] [address] [id number] [place] [address] Sep, [facility] [place] [facility] [address] [id number] [place] [address] Sep, [facility] [place] [facility] [address] [id number] [place] [address] Sep, [facility] [place] [facility] [address] [id number] [place] [address] Sep, [facility] [place] [facility] [address] [id number] [place] [address] Sep, [facility] [place] [facility] [address] [id number] [place] [address] Sep, [facility] [place] [facility] [address] [id number] [place] [address] 30 Aug, 2014 [facility] [place] [facility] [address] [id number] [place] [address] 30 Aug, 2014 [facility] [place] [facility] [address] [id number] [place] [address] 29 Aug, 2014 [facility] [place] [facility] [address] [id number] [place] [address] Aug, [facility] [place] [facility] [address] [id number] [place] [address] Aug, [facility] [place] [facility] [address] [id number] [place] [address] Aug, [facility] [place] [facility] [address] [id number] [place] [address] Aug, [facility] [place] [facility] [address] [id number] [place] [address] 17 Aug, 2014 [facility] [place] [facility] [address] [id number] [place] [address] 30 Jul, 2013 [facility] [place] [facility] [address] [id number] [place] [address] 30 Sep, 2013 [facility] [place] [facility] [address] [id number] [address] 30 Sep, 2013 [facility] [place] [facility] [address] [id number] [address] 30 Sep, 2013 [facility] [place] [facility] [address] [id number] [place] [address] 25 Sep, 2013 [facility] [place] [facility] [address] [id number] [place] [address] 25 Sep, 2013 [facility] [place] [facility] [address] [id number] [place] [address] 15 Sep, 2013 [facility] [place] [facility] [address] [id number] [place] [address] 15 Jul, 2014 [facility] [place] [facility] [address] [id number] [place] [address] Jul, [facility] [place] [facility] [address] [id number] [place] [address] Jul, [facility] [place] [facility] [address] [id number] [place] [address] Jun, [facility] [place] [facility] [address] [id number] [place] [address] Jun, [facility] [place] [facility] [address] [id number] [place] [address] Jun, [facility] [place] [facility] [address] [id number] [place] [address] Jun, [facility] [place] [facility] [address] [id number] [place] [address] Jun, [facility] [place] [facility] [address] [id number] [place] [address] Jun, [facility] [place] [facility] [address] [id number] [place] [address] Jun, [facility] [place] [facility] [address] [id number] [place] [address] Jun, [facility] [place] [facility] [address] [id number] [place] [address] Jun, [facility] [place] [facility] [address] [id number] [place] [address] Jun, [facility] [place] [facility] [address] [id number] [place] [address] Jun, [facility] [place] [facility] [address] [id number] [place] [address] Jun, [facility] [place] [facility] [address] [id number] [place] [address] Jun, [facility] [place] [facility] [address] [id number] [place] [address] Jun, [facility] [place] [facility] [address] [id number] [place] [address] Jun, [facility] [place] [facility] [address] [id number] [place] [address] Jun, [facility] [place] [facility] [address] [id number] [place] [address] Jun, [facility] [place] [facility] [address] [id number] [place] [address] Jun, [facility] [place] [facility] [address] [id number] [place] [address] Jun, [facility] [place] [facility] [address] [id number] [place] [address] Jun, [facility] [place] [facility] [address] [id number] [place] [address] Jun, [facility] [place] [facility] [address] [id number] [place] [address] Jun, [facility] [place] [facility] [address] [id number] [place] [address] May, [facility] [place] [facility] [address] [id number] [place] [address] May, [facility] [place] [facility] [address] [id number] [place] [address] May, [facility] [place] [facility] [address] [id number] [place] [address] May, [facility] [place] [facility] [address] [id number] [place] [address] May, [facility] [place] [facility] [address] [id number] [place] [address] May, [facility] [place] [facility] [address] [id number] [place] [address] May, [facility] [place] [facility] [address] [id number] [place] [address] May, [facility] [place] [facility] [address] [id number] [place] [address] May, [facility] [place] [facility] [address] [id number] [place] [address] May, [facility] [place] [facility] [address] [id number] [place] [address] May, [facility] [place] [facility] [address] [id number] [place] [address] May, [facility] [place] [facility] [address] [id number] [place] [address] May, [facility] [place] [facility] [address] [id number] [place] [address] Apr, [facility] [place] [facility] [address] [id number] [place] [address] Apr, [facility] [place] [facility] [address] [id number] [place] [address] Apr, [facility] [place] [facility] [address] [id number] [place] [address] Apr, [facility] [place] [facility] [address] [id number] [place] [address] Apr, [facility] [place] [facility] [address] [id number] [place] [address] Apr, [facility] [place] [facility] [address] [id number] [place] [address] Apr, [facility] [place] [facility] [address] [id number] [place] [address] Apr, [facility] [place] [facility] [address] [id number] [place] [address] Apr, [facility] [place] [facility] [address] [id number] [place] [address] March, [facility] [address] [id number] [place] [address] March, [facility] [address] [id number] [place] [address] March, [facility] [address] [id number] [place] [address] March, [facility] [address] [id number] [place] [address] March, [facility] [address] [id number] [place] [address] March, [facility] [address] [id number] [place] [address] March, [facility] [address] [id number] [place] [address] March, [facility] [address] [id number] [place] [address] March, [facility] [address] [id number] [place] [address] March, [facility] [address] [id number] [place] [address] March, [facility] [address] [id number] [place] [address] March, [facility] [address] [id number] [place] [address] March, [facility] [address] [id number] [place] [address] March, [facility] [address] [id number] [place] [address] March, [facility] [address] [id number] [place] [address] March, [facility] [address] [id number] [place] [address] March, [facility] [place] [facility] [address] [id number] [place] [address] March, [facility] [place] [facility] [address] [id number] [place] [address] March, [facility] [place] [facility] [address] [id number] [place] [address] March, [facility] [place] [facility] [address] [id number] [place] [address] Feb, [facility] [place] [facility] [address] [id number] [place] [address] Feb, [facility] [place] [facility] [address] [id number] [place] [address] Feb, [facility] [place] [facility] [address] [id number] [place] [address] Feb, [facility] [place] [facility] [address] [id number] [place] [address] Feb, [facility] [place] [facility] [address] [id number] [place] [address] Feb, [facility] [place] [facility] [address] [id number] [place] [address] Feb, [facility] [place] [facility] [address] [id number] [place] [address] Feb, [facility] [place] [facility] [address] [id number] [place] [address] Jan, [facility] [place] [facility] [address] [id number] [place] [address] Jan, [facility] [place] [facility] [address] [id number] [place] [address] Jan, [facility] [place] [facility] [address] [id number] [place] [address] 24 Jan, 2014 [facility] [place] [facility] [address] [id number] [place] [address] Jan, [facility] [place] [facility] [address] [id number] [place] [address] Jan, [facility] [place] [facility] [address] [facility] [id number] [place] [address] Jan, [facility] [place] [facility] [address] [id number] [place] [address] Jan, [facility] [place] [facility] [address] [id number] [place] [address] Jan, [facility] [place] [facility] [address] [id number] [place] [address] Jan, [facility] [place] [facility] [address] [facility] [id number] [place] [address] 27 Dec, 2013 [facility] [place] [facility] [address] [facility] [id number] [place] [address] Dec, [facility] [place] [facility] [address] [facility] [id number] [place] [address] Dec, [facility] [place] [facility] [address] [facility] [id number] [place] [address] 2013 [facility] [place] [facility] [address] [facility] [id number] [place] [address] 2013 [facility] [place] [facility] [address] [facility] [id number] [place] [address] 13 Dec, 2013 [facility] [place] [facility] [address] [id number] [place] [address] Dec, [facility] [place] [facility] [address] [facility] [id number] [place] [address] Dec, [facility] [place] [facility] [address] [facility] [id number] [place] [address] Nov, [facility] [address] [id number] [place] [address] Nov, [facility] [place] [facility] [address] [id number] [place] [address] Nov, [facility] [place] [facility] [address] [id number] [place] [address] Nov, [facility] [place] [facility] [address] [id number] [place] [address] Nov, [facility] [place] [facility] [address] [id number] [place] [address] Nov, [facility] [place] [facility] [address] [id number] [place] [address] Nov, [facility] [place] [facility] [address] [id number] [place] [address] Nov, [facility] [place] [facility] [address] [id number] [place] [address] Nov, [facility] [place] [facility] [address] [id number] [place] [address] Nov, [facility] [place] [facility] [address] [id number] [place] [address] Nov, [facility] [place] [facility] [address] [id number] [place] [address] Nov, [facility] [place] [facility] [address] [id number] [address] Nov, [facility] [place] [facility] [address] [id number] [place] [address] Oct, [facility] [place] [facility] [address] [id number] [place] [address] Oct, [facility] [place] [facility] [address] [id number], [place] [address] Oct, [facility] [place] [facility] [address] [id number], [place] [address] Oct, [facility] [address] [id number] [place] [address] Oct, [facility] [place] [facility] [address] [id number] [place] [address] Oct, [facility] [address] [facility] [id number] [place] [address] 18 Oct, 2013 [facility] [place] [facility] [address] [id number] [place] [address] 18 Oct, 2013 [facility] [address] [id number] [place] [address] Oct, [facility] [address] [id number] [place] [address] Oct, [facility] [address] [facility] [id number] [place] [address] Oct, [facility] [place] [facility] [address] [id number] [place] [address] Oct, [facility] [address] [facility] [id number] [place] [address] Oct, [facility] [place] [facility] [address] [facility] [id number] [place] [address] Oct, [facility] [place] [facility] [address] [facility] [id number] [address] 14 Sep, 2013 [facility] [place] [facility] [address] [id number], [place] [address] 14 Sep, 2013 [facility] [place] [facility] [address] [id number] [place] [address] 05 Sep, 2013 [facility] [place] [facility] [address] [facility] [id number] [place] [address] 05 Sep, 2013 [facility] [place] [facility] [address] [facility] [id number] [place] [address] 04 Sep, 2013 [facility] [place] [facility] [address] [id number] [place] [address] Sep, [facility] [place] [facility] [address] [id number] [place] [address] Sep, [facility] [place] [facility] [address] [id number] [place] [address] Sep, [facility] [place] [facility] [address] [id number] [place] [address] Sep, [facility] [place] [facility] [address] [id number] [place] [address] Sep, [facility] [place] [facility] [address] [id number] [place] [address] Aug, [facility] [place] [facility] [address] [id number] [place] [address] Aug, [facility] [place] [facility] [address] [id number] [place] [address] Aug, [facility] [place] [facility] [address] [id number] [place] [address] Aug, [facility] [place] [facility] [address] [id number] [place] [address] Aug, [facility] [place] [facility] [address] [id number] [place] [address] Aug, [facility] [place] [facility] [address] [id number] [place] [address] Aug, [facility] [place] [facility] [address] [id number] [place] [address] Aug, [facility] [place] [facility] [address] [id number] [place] [address] Aug, [facility] [place] [facility] [address] [id number] [place] [address] Aug, [facility] [place] [facility] [address] [id number] [place] [address] 18 Aug, 2013 [facility] [place] [facility] [address] [id number] [place] [address] 18 Aug, 2013 [facility] [place] [facility] [address] [id number] [place] [address] 18 Aug, 2013 [facility] [place] [facility] [address] [id number] [place] [address] 18 Aug, 2013 [facility] [place] [facility] [address] [id number] [place] [address] 17 Aug, 2013 [facility] [place] [facility] [address] [id number] [place] [address] 14 Aug, 2013 [facility] [place] [facility] [address] [id number] [place] [address] 14 Aug, 2013 [facility] [place] [facility] [address] [id number] [place] [address] Aug, [facility] [place] [facility] [address] [id number] [place] [address] 20 Jul, 2013 [facility] [place] [facility] [address] [id number] [place] [address] 19 Jul, 2013 [facility] [place] [facility] [address] [id number] [place] [address] 18 Jul, 2013 [facility] [place] [facility] [address] [id number], [place] [address] 11 Jul, 2013 [facility] [place] [facility] [address] [id number], [place] [address] 11 Jul, 2013 [facility] [place] [facility] [address] [id number] [place] [address] Jun, [facility] [place] [facility] [address] [id number], [place] [address] Jun, [facility] [place] [facility] [address] [id number] [place] [address] Jun, [facility] [place] [facility] [address] [id number] [place] [address] 15 Jun, 2013 [facility] [address] [id number] [place] [address] Jun, [facility] [place] [facility] [address] [id number] [place] [address] Jun, [facility] [place] [facility] [address] [id number] [place] [address] Jun, [facility] [place] [facility] [address] [id number] [place] [address] Jun, [facility] [place] [facility] [address] [id number] [place] [address] Jun, [facility] [place] [facility] [address] [id number] [place] [address] Jun, [facility] [place] [facility] [address] [id number] [place] [address] May, [facility] [place] [facility] [address] [id number] [place] [address] May, [facility] [place] [facility] [address] [id number] [place] [address] May, [facility] [place] [facility] [address] [id number] [place] [address] May, [facility] [place] [facility] [address] [id number] [place] [address] May, [facility] [place] [facility] [address] [id number] [place] [address] 16 May, 2013 [facility] [place] [facility] [address] [id number] [place] [address] May, [facility] [place] [facility] [address] [id number] [place] [address] May, [facility] [place] [facility] [address] [id number] [place] [address] May, [facility] [place] [facility] [address] [id number] [place] [address] Apr, [facility] [place] [facility] [address] [id number] [place] [address] Apr, [facility] [place] [facility] [address] [id number] [place] [address] Apr, [facility] [place] [facility] [address] [id number] [place] [address] Apr, [facility] [address] [id number] [place] [address] Apr, [facility] [place] [facility] [address] [id number] [place] [address] Apr, [facility] [address] [id number] [place] [address] Apr, [facility] [place] [facility] [address] [id number] [place] [address] March, [facility] [address] [id number] [place] [address] Feb, [facility] [place] [facility] [address] [id number] [place] [address] Feb, [facility] [place] [facility] [address] [id number] [place] [address] Feb, [facility] [place] [facility] [address] [id number] [place] [address] 28 Jan, 2013 [facility] [place] [facility] [address] [id number] [place] [address] 21 Jan, 2013 [facility] [place] [facility] [address] [id number] [place] [address] 19 Jan, 2013 [facility] [place] [facility] [address] [id number] [place] [address] 14 Jan, 2013 [facility] [place] [facility] [address] [id number] [place] [address] 12 Jan, 2013 [facility] [address] [id number] [place] [address] 08 Jan, 2013 [facility] [address] [id number] [place] [address] 07 Jan, 2013 [facility] [address] [facility] [id number] [place] [address] 04 Jan, 2013 [facility] [address] [id number] [place] [address] 28 Dec, 2012 [facility] [address] [id number] [place] [address] 25 Dec, 2012 [facility] [address] [id number] [place] [address] 13 Dec, 2012 [facility] [address] [facility] [id number] [place] [address] Dec, [facility] [address] [id number] [place] [address] 07 Dec, 2012 [facility] [address] [facility] [address] [facility] [id number] [place] [address] 06 Dec, 2012 [facility] [address] [facility] [id number] [place] [address] 05 Dec, 2012 [facility] [address] [id number] [place] [address] 31 Nov, 2012 [facility] [place] [facility] [address] [id number] [place] [address] 24 Nov, 2012 [facility] [place] [facility] [address] [id number] [place] [address] 18 Nov, 2012 [facility] [place] [facility] [address] [facility] [id number] [place] [address] 15 Nov, 2012 [facility] [place] [facility] [address] [id number] [address] 10 Nov, 2012 [facility] [place] [facility] [address] [id number] [place] [address] Nov, [facility] [address] [id number] [place] [address] Nov, [facility] [place] [facility] [address] [id number] [place] [address] Oct, [facility] [place] [facility] [address] [id number] [place] [address] Oct, [facility] [place] [facility] [address] [id number] [place] [address] Oct, [facility] [place] [facility] [address] [id number] [place] [address] Oct, [facility] [address] [id number] [place] [address] Oct, [facility] [place] [facility] [address] [id number] [place] [address] Oct, [facility] [place] [facility] [address] [id number] [place] [address] Oct, [facility] [place] [facility] [address] [id number] [place] [address] Oct, [facility] [place] [facility] [address] [id number] [place] [address] Oct, [facility] [place] [facility] [address] [id number] [place] [address] Oct, [facility] [place] [facility] [address] [id number] [place] [address] Oct, [facility] [place] [facility] [address] [id number] [place] [address] Oct, [facility] [place] [facility] [address] [id number] [place] [address] Sep, [facility] [place] [facility] [address] [id number] [place] [address] Sep, [facility] [place] [facility] [address] [id number] [place] [address] Sep, [facility] [place] [facility] [address] [id number], [place] [address] Sep, [facility] [place] [facility] [address] [id number] [place] [address] Sep, [facility] [place] [facility] [address] [id number], [place] [address] Sep, [facility] [place] [facility] [address] [id number] [place] [address] Sep, [facility] [place] [facility] [address] [id number], [place] [address] Sep, [facility] [place] [facility] [address] [facility] [id number], [place] [address] Sep, [facility] [place] [facility] [address] [id number], [place] [address] Sep, [facility] [place] [facility] [address] [id number], [place] [address] Sep, [facility] [place] [facility] [address] [facility] [id number], [place] [address] Aug, [facility] [place] [facility] [address] [id number], [place] [address] Aug, [facility] [place] [facility] [address] [id number], [place] [address] Aug, [facility] [place] [facility] [address] [id number], [place] [address] Aug, [facility] [place] [facility] [address] [facility] [id number], [place] [address] Aug, [facility] [place] [facility] [address] [facility] [id number], [place] [address] Aug, [facility] [place] [facility] [address] [id number] [place] [address] Aug, [facility] [place] [facility] [address] [id number] [place] [address] Aug, [facility] [place] [facility] [address] [id number] [place] [address] Aug, [facility] [place] [facility] [address] [id number] [place] [address] Aug, [facility] [place] [facility] [address] [id number] [place] [address] Jul, [facility] [place] [facility] [address] [id number] [place] [address] Jul, [facility] [place] [facility] [address] [id number] [place] [address] Jul, [facility] [place] [facility] [address] [id number] [place] [address] Jul, [facility] [place] [facility] [address] [id number] [place] [address] Jun, [facility] [place] [facility] [address] [id number] [place] [address] Jun, [facility] [place] [facility] [address] [id number] [place] [address] Jun, [facility] [place] [facility] [address] [id number] [place] [address] Jun, [facility] [place] [facility] [address] [id number] [place] [address] Jun, [facility] [place] [facility] [address] [id number] [place] [address] Jun, [facility] [place] [facility] [address] [id number] [place] [address] Jun, [facility] [place] [facility] [address] [id number] [place] [address] May, [facility] [place] [facility] [address] [id number] [place] [address] May, [facility] [place] [facility] [address] [id number] [place] [address] May, [facility] [place] [facility] [address] [id number] [place] [address] May, [facility] [place] [facility] [address] [id number] [place] [address] May, [facility] [place] [facility] [address] [id number] [place] [address] Apr, [facility] [place] [facility] [address] [id number] [place] [address] Apr, [facility] [place] [facility] [address] [id number] [place] [address] Apr, [facility] [place] [facility] [address] [id number] [place] [address] Apr, [facility] [place] [facility] [address] [id number] [place] [address] Apr, [facility] [place] [facility] [address] [id number] [place] [address] March, [facility] [place] [facility] [address] [id number] [place] [address] March, [facility] [place] [facility] [address] [id number] [place] [address] March, [facility] [place] [facility] [address] [id number] [place] [address] March, [facility] [place] [facility] [address] [id number] [place] [address] March, [facility] [place] [facility] [address] [id number] [place] [address] March, [facility] [place] [facility] [address] [id number] [place] [address] March, [facility] [address] [id number] [place] [address] March, [facility] [place] [facility] [address] [id number] [place] [address] March, [facility] [place] [facility] [address] [id number] [place] [address] March, [facility] [place] [facility] [address] [id number] [place] [address] Feb, [facility] [place] [facility] [address] [id number] [place] [address] Feb, [facility] [place] [facility] [address] [id number] [place] [address] Feb, [facility] [address] [id number] [place] [address] Feb, [facility] [place] [facility] [address] [id number] [place] [address] Feb, [facility] [place] [facility] [address] [id number] [place] [address] Feb, [facility] [place] [facility] [address] [id number] [place] [address] Feb, [facility] [place] [facility] [address] [id number] [place] [address] Feb, [facility] [place] [facility] [address] [id number] [place] [address] Feb, [facility] [place] [facility] [address] [id number] [place] [address] Jan, [facility] [place] [facility] [address] [id number] [place] [address] Jan, [facility] [place] [facility] [address] [id number] [place] [address] Jan, [facility] [place] [facility] [address] [id number] [place] [address] Jan, [facility] [address] [id number] [place] [address] Dec, [facility] [place] [facility] [address] [id number] [place] [address] Dec, [facility] [place] [facility] [address] [id number] [place] [address] Nov, [facility] [place] [facility] [address] [id number] [place] [address] Nov, [facility] [place] [facility] [address] [id number] [place] [address] Nov, [facility] [address] [id number] [place] [address] Nov, [facility] [place] [facility] [address] [id number] [place] [address] Nov, [facility] [address] [id number] [place] [address] Oct, [facility] [address] [id number] [place] [address] Oct, [facility] [address] [id number] [place] [address] Oct, [facility] [place] [facility] [address] [id number] [place] [address] Oct, [facility] [place] [facility] [address] [id number] [place] [address] Oct, [facility] [place] [facility] [address] [id number] [place] [address] Oct, [facility] [place] [facility] [address] [id number] [place] [address] Oct, [facility] [place] [facility] [address] [id number] [place] [address] Oct, [facility] [address] [facility] [id number] [place] [address] Sep, IMMUNIZATIONS No Known Immunizations SOCIAL HISTORY Never Assessed REASON FOR VISIT Rx request for neck pain PLAN OF CARE VITAL SIGNS MEDICATIONS Unknown Medications RESULTS No Results PROCEDURES No Known procedures INSTRUCTIONS MEDICATIONS ADMINISTERED No Known Medications MEDICAL (GENERAL) HISTORY Type Description Date 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
[2019-04-16 15:53] LABS: INR 1.5 (0.8-1.4); PROTHROMBIN TIME PATIENT 18.9 SEC (12.2-14.7)
--- OUTSIDE RECORDS SUMMARY | 2019-04-16 15:53 | XMS REPORT ---
Author Author SHANIQUE VEGA [facility] Address [address] [place] [address] Care Team Providers Care Tax Attorney Name Role Phone SHANIQUE VEGA Unavailable PROBLEMS Type Condition ICD9-CM Code RET50-VC Code Onset Dates Condition Status SNOMED Code Problem Reactive depression F32.9 Active 50098520 Problem Anxiety F41.9 Active 98067828 Problem Pharyngeal dysphagia R13.13 Active 49847891039022 Problem Suprapubic catheter Z93.59 Active 128160901 Problem Encounter for suprapubic catheter care Z43.5 Active 904797914 Problem Insomnia G47.00 Active 697588442 Problem Peripheral vascular disease I73.9 Active 237493826 Problem 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 Active 60612649 Problem Paroxysmal atrial fibrillation I48.0 Active 734653532 Problem Hypertension I10 Active 47686334 Problem Other chronic pain G89.29 Active 48624783 Problem Low back pain M54.5 Active 619956652 Problem Coronary artery disease I25.10 Active 92984287 Problem Type 2 diabetes mellitus without complication, without long-term current use of insulin E11.9 Active 737512564 Problem Hyperlipidemia E78.5 Active 73756827 Problem Ventral hernia without obstruction or gangrene K43.9 Active 038913086 ALLERGIES No Information ENCOUNTERS Encounter Location Date Diagnosis [facility] [address] [id number] [address] Sep, [facility] [address], [place] [address] Sep, Via [facility] [address] [place] [id number] Aug, Cystitis N30.90 [facility] [id number], [place] [address] Aug, [facility] [id number], [place] [address] Aug, Other chronic pain G89.29 [facility] [address] [facility] [id number], [place] [address] Aug, Via [facility] [address] [place] [id number] Aug, Encounter for suprapubic catheter care Z43.5 [facility] [facility] [address] [id number], [place] [address] Jul, Via [facility] [address] [place] [id number] Jul, [place] [address] [facility] [id number] [place] [address] Jul, Other chronic pain G89.29 [place] [address] [facility] [id number], [place] [address] Jul, [facility] [facility] [id number] [place] [address] Jul, [facility] [address] [place] [id number] Jun, 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 [place] [address] [facility] [id number], [place] [address] Jun, Other chronic pain G89.29 [place] [address] [facility] [id number], [place] [address] Jun, Via [facility] [address] [place] [id number] May, Anxiety F41.9 ; Type 2 diabetes mellitus without complication, without long-term current use of insulin E11.9 ; Hypertension I10 ; Low back pain M54.5 ; Paroxysmal atrial fibrillation I48.0 and 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 [place] [facility] [address] [id number], [place] [address] May, Other chronic pain G89.29 [facility] [address] [place] [id number] May, Low back pain M54.5 [facility] [address] [facility] [id number], [place] [address] May, [facility] [id number] [place] [address] Apr, Other chronic pain G89.29 [facility] [address], [place] [address] Apr, [facility] [id number] [place] [address] Apr, Via [facility] [address] [place] [id number] Apr, Closed compression fracture of L3 lumbar vertebra with routine healing, subsequent encounter S32.030D [facility] [address] [place] [id number] Apr, Low back pain M54.5 [facility] [address] [place] [id number] Apr, Coccydynia M53.3 [facility] [address], [place] [address] March, [facility] [id number] [place] [address] March, Other chronic pain G89.29 [facility] [address], [place] [address] March, [facility] [address], [place] [address] March, [facility] [id number], [place] [address] Feb, [facility] [id number] [place] [address] Feb, Other chronic pain G89.29 [facility] [address] [place] [id number] Feb, Other chronic pain G89.29 and Anxiety F41.9 [facility] [id number], [place] [address] Feb, [facility] [id number], [place] [address] Jan, [facility] [id number], [place] [address] Jan, [facility] [id number] [place] [address] Jan, [facility] [id number], [place] [address] Jan, [facility] [address], [place] [address] Dec, Via [facility] [facility] [address] [place] [id number] Dec, Peripheral vascular disease I73.9 ; 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 ; Other chronic pain G89.29 ; Anxiety F41.9 ; Reactive depression F32.9 ; Insomnia G47.00 and Type 2 diabetes mellitus without complication, without long-term current use of insulin E11.9 [facility] [address] [id number] [place] [address] Nov, [facility] [address] [id number] [id number] Nov, Anxiety F41.9 [facility] [address] [facility] [id number], [place] [address] Nov, [facility] [address] [id number] [id number] Nov, Anxiety F41.9 [facility] [address] [place] [id number] Nov, Status post surgery Z98.890 ; Confused R41.0 ; Anxiety F41.9 and Other chronic pain G89.29 [facility] [address] [id number] [id number] Nov, Other chronic pain G89.29 [facility] [address] [facility] [id number], [place] [address] Oct, [facility] [address] [id number] [id number] Oct, Other chronic pain G89.29 [facility] [address] [facility] [id number], [place] [address] Oct, Anxiety F41.9 [facility] [id number] [place] [id number] Sep, Other chronic pain G89.29 [facility] [id number] [place] [id number] Sep, Via [facility] [address] [place] [id number] Aug, Dysuria R30.0 and Anxiety F41.9 [facility] [address] [place] [address] Aug, [facility] [id number] [place] [id number] Aug, Other chronic pain G89.29 [facility] [id number] [place] [address] Jul, Other chronic pain G89.29 [facility] [id number] [address] Jun, [facility] [id number] [place] [id number] Jun, Other chronic pain G89.29 [facility] [address] [facility] [id number], [place] [address] Jun, [facility] [id number] [place] [address] May, Other chronic pain G89.29 [facility] [address] [facility] [id number], [place] [address] Apr, Other chronic pain G89.29 [facility] [address] [place] [id number] Apr, Reactive depression F32.9 and Pharyngeal dysphagia R13.13 [facility] [id number] [place] [address] Apr, Urinary tract infection without hematuria, site unspecified N39.0 [facility] [id number] [place] [address] March, Other chronic pain G89.29 [facility] [id number] [place] [address] Feb, Other chronic pain G89.29 [facility] [id number] [place] [address] Feb, [facility] [id number] [place] [id number] Feb, Via [facility] [address] [place] [id number] Feb, Dysuria R30.0 and Ventral hernia without obstruction or gangrene K43.9 [facility] [id number] [place] [address] Jan, Other chronic pain G89.29 [facility] [id number] [place] [id number] Dec, Other chronic pain G89.29 [facility] [id number] [place] [address] Nov, Other chronic pain G89.29 [facility] [address] [place] [id number] Nov, Lymphadenitis I88.9 [facility] [id number] [place] [address] Nov, Other chronic pain G89.29 [facility] [address] [place] [address] Nov, [facility] [id number] [place] [id number] Nov, Other chronic pain G89.29 [facility] [facility] [address] [place] [id number] Oct, Low back pain M54.5 ; Hypertension I10 and Type 2 diabetes mellitus without complication, without long-term current use of insulin E11.9 [facility] [id number] [place] [address] Oct, [facility] [id number] [place] [address] Oct, [facility] [id number] [place] [address] Oct, [facility] [id number] [place] [address] Oct, [facility] [id number] [place] [address] Sep, [facility] [id number] [place] [address] Sep, [facility] [id number] [place] [address] Aug, Other chronic pain G89.29 [facility] [id number] [place] [address] Jul, [facility] [id number] [place] [address] Jul, [facility] [id number] [place] [address] Jul, [facility] [id number] [place] [address] Jun, [facility] [address] [place] [address] Jun, [facility] [address] [place] [id number] Jun, Low back pain M54.5 ; Other chronic pain G89.29 and Coronary artery disease I25.10 [facility] [address], [place] [address] Jun, [facility] [address], [place] [address] May, [facility] [address], [place] [address] May, [facility] [id number] [place] [address] May, Other chronic pain G89.29 [facility] [id number] [place] [address] May, [facility] [address], [place] [address] Apr, [facility] [id number] [place] [address] Apr, Acute cystitis without hematuria N30.00 [facility] [address], [place] [address] 16 Apr, 2016 Acute cystitis without hematuria N30.00 ; Coronary artery disease I25.10 ; Low back pain M54.5 and Other chronic pain G89.29 [facility] [address], [place] [address] Apr, Other chronic pain G89.29 [facility] [address], [place] [address] March, Other chronic pain G89.29 [facility] [address], [place] [address] Feb, [facility] [address], [place] [address] Feb, Arthritis M19.90 [facility] [address], [place] [address] Feb, [facility] [address], [place] [address] Jan, [facility] [id number] [place] [address] Jan, [facility] [id number] [place] [address] Jan, Other chronic pain G89.29 [facility] [id number] [place] [address] Jan, Hypertension I10 ; Coronary artery disease I25.10 and Insomnia G47.00 [facility] [id number] [place] [address] Jan, [facility] [id number] [place] [address] Dec, Right hip pain M25.551 [facility] [id number] [place] [address] Dec, [facility] [address] [place] [address] Dec, [facility] [address] [place] [address] Dec, [facility] [address] [place] [address] Dec, Other chronic pain G89.29 [facility] [address], [place] [address] Dec, [facility] [address] [place] [address] Nov, [facility] [address] [place] [address] Nov, Other chronic pain G89.29 [facility] [address], [place] [address] Nov, Right hip pain M25.551 and Coronary artery disease I25.10 [facility] [address] [place] [address] Nov, Other chronic pain G89.29 [facility] [id number] [place] [address] Oct, [facility] [id number] [place] [address] Oct, [facility] [id number] [place] [address] Sep, [facility] [id number] [place] [address] Sep, [facility] [id number] [place] [address] Aug, [facility] [id number] [place] [address] Aug, Hypertension I10 ; Coronary artery disease I25.10 and Arthritis M19.90 [facility] [id number] [place] [address] Jun, [facility] [id number] [place] [address] Jun, Essential hypertension, benign 401.1 ; Other chronic pain 338.29 and Chronic airway obstruction, not elsewhere classified 496 [facility] [id number] [place] [address] Jun, [facility] [address] [place] [address] Jun, [facility] [id number] [place] [address] Jun, [facility] [id number] [place] [address] May, [facility] [id number] [place] [address] May, [facility] [address] [id number] [place] [address] Apr, [facility] [address] [id number] [place] [address] Apr, [facility] [address] [id number] [place] [address] Apr, [facility] [address] [id number] [place] [address] March, [facility] [address] [id number] [place] [address] March, [facility] [address] [id number] [place] [address] March, [facility] [address] [facility] [id number] [place] [address] March, [facility] [address] [facility] [id number] [place] [address] March, Sialadenitis 527.2 [facility] [address] [id number] [place] [address] Feb, [facility] [address] [facility] [id number] [place] [address] Feb, [facility] [address] [id number] [place] [address] Feb, [facility] [address] [id number] [place] [address] Feb, [facility] [address] [id number] [place] [address] Feb, [facility] [address] [facility] [id number] [place] [address] Jan, [facility] [address] [id number] [place] [address] Jan, [facility] [place] [facility] [address] [id number] [place] [address] Jan, [facility] [place] [facility] [address] [id number] [place] [address] Jan, [facility] [place] [facility] [address] [id number] [place] [address] Jan, [facility] [place] [facility] [address] [id number] [place] [address] Jan, [facility] [place] [facility] [address] [id number] [place] [address] Dec, [facility] [place] [facility] [address] [id number] [place] [address] Dec, 2014 [facility] [place] [facility] [address] [id number] [place] [address] Dec, [facility] [place] [facility] [address] [id number] [place] [address] Dec, 2014 [facility] [place] [facility] [address] [id number] [place] [address] Dec, [facility] [place] [facility] [address] [id number] [place] [address] Dec, [facility] [place] [facility] [address] [id number] [place] [address] Nov, [facility] [place] [facility] [address] [id number] [place] [address] Nov, [facility] [place] [facility] [address] [id number] [place] [address] Nov, [facility] [place] [facility] [address] [id number] [place] [address] Nov, [facility] [place] [facility] [address] [id number] [place] [address] Nov, [facility] [place] [facility] [address] [id number] [place] [address] Nov, [facility] [address] [id number] [place] [address] Nov, [facility] [place] [facility] [address] [id number] [place] [address] Nov, [facility] [place] [facility] [address] [id number] [place] [address] Nov, [facility] [place] [facility] [address] [id number] [place] [address] Nov, [facility] [place] [facility] [address] [id number] [place] [address] Nov, [facility] [place] [facility] [address] [id number] [place] [address] Nov, [facility] [place] [facility] [address] [id number] [place] [address] Nov, [facility] [place] [facility] [address] [id number] [place] [address] Nov, [facility] [place] [facility] [address] [id number] [place] [address] Oct, [facility] [place] [facility] [address] [id number] [place] [address] Oct, [facility] [place] [facility] [address] [id number] [place] [address] 19 Oct, 2014 [facility] [place] [facility] [address] [id number] [place] [address] 18 Oct, 2014 [facility] [place] [facility] [address] [id number] [place] [address] 18 Oct, 2014 [facility] [place] [facility] [address] [id number] [place] [address] 17 Oct, 2014 [facility] [place] [facility] [address] [id number] [place] [address] 17 Oct, 2014 [facility] [place] [facility] [address] [id number] [place] [address] Oct, [facility] [place] [facility] [address] [id number] [place] [address] Oct, [facility] [place] [facility] [address] [id number] [place] [address] Sep, [facility] [place] [facility] [address] [id number] [place] [address] Sep, [facility] [place] [facility] [address] [id number] [place] [address] Sep, [facility] [place] [facility] [address] [id number] [place] [address] Sep, [facility] [place] [facility] [address] [id number] [place] [address] Sep, [facility] [place] [facility] [address] [id number] [place] [address] Sep, [facility] [place] [facility] [address] [id number] [place] [address] Sep, [facility] [place] [facility] [address] [id number] [place] [address] Sep, [facility] [place] [facility] [address] [id number] [place] [address] Sep, [facility] [place] [facility] [address] [id number] [place] [address] Sep, [facility] [place] [facility] [address] [id number] [place] [address] Sep, [facility] [place] [facility] [address] [id number] [place] [address] Sep, [facility] [place] [facility] [address] [id number] [place] [address] Aug, [facility] [place] [facility] [address] [id number] [place] [address] 30 Aug, 2014 [facility] [place] [facility] [address] [id number] [place] [address] 29 Aug, 2014 [facility] [place] [facility] [address] [id number] [place] [address] 29 Aug, 2014 [facility] [place] [facility] [address] [id number] [place] [address] 28 Aug, 2014 [facility] [place] [facility] [address] [id number] [place] [address] 28 Aug, 2014 [facility] [place] [facility] [address] [id number] [place] [address] 17 Aug, 2014 [facility] [place] [facility] [address] [id number] [place] [address] 17 Aug, 2013 [facility] [place] [facility] [address] [id number] [place] [address] 30 Jul, 2013 [facility] [place] [facility] [address] [id number] [place] [address] 30 Sep, 2013 [facility] [place] [facility] [address] [id number] [place] [address] 30 Sep, 2013 [facility] [place] [facility] [address] [id number] [place] [address] 30 Sep, 2013 [facility] [place] [facility] [address] [id number], [place] [address] 25 Sep, 2013 [facility] [place] [facility] [address] [id number], [place] [address] 25 Sep, 2013 [facility] [place] [facility] [address] [id number] [place] [address] 15 Sep, 2013 [facility] [place] [facility] [address] [id number] [place] [address] 15 Sep, 2013 [facility] [place] [facility] [address] [id number] [place] [address] 11 Jul, 2013 [facility] [place] [facility] [address] [id number] [place] [address] Jul, [facility] [place] [facility] [address] [id number] [place] [address] Jun, [facility] [place] [facility] [address] [id number] [place] [address] Jun, [facility] [place] [facility] [address] [id number] [place] [address] Jun, [facility] [place] [facility] [address] [id number] [place] [address] Jun, [facility] [place] [facility] [address] [id number] [place] [address] Jun, [facility] [place] [facility] [address] [id number] [place] [address] Jun, [facility] [place] [facility] [address] [id number] [place] [address] Jun, [facility] [place] [facility] [address] [id number] [place] [address] Jun, [facility] [place] [facility] [address] [id number] [place] [address] Jun, [facility] [place] [facility] [address] [id number] [place] [address] Jun, [facility] [place] [facility] [address] [address] [id number] [place] [address] Jun, [facility] [place] [facility] [address] [id number] [place] [address] Jun, [facility] [place] [facility] [address] [id number] [place] [address] Jun, [facility] [place] [facility] [address] [id number] [place] [address] Jun, [facility] [place] [facility] [address] [id number] [place] [address] Jun, [facility] [place] [facility] [address] [id number] [place] [address] Jun, [facility] [place] [facility] [address] [id number] [place] [address] Jun, [facility] [place] [facility] [address] [id number] [place] [address] Jun, [facility] [place] [facility] [address] [id number] [place] [address] Jun, [facility] [place] [facility] [address] [id number] [place] [address] Jun, [facility] [place] [facility] [address] [id number] [place] [address] Jun, [facility] [place] [facility] [address] [id number] [place] [address] Jun, [facility] [place] [facility] [address] [id number] [place] [address] May, [facility] [place] [facility] [address] [id number] [place] [address] May, [facility] [place] [facility] [address] [id number] [place] [address] May, [facility] [place] [facility] [address] [id number] [place] [address] May, [facility] [place] [facility] [address] [id number] [place] [address] May, [facility] [place] [facility] [address] [id number] [place] [address] May, [facility] [place] [facility] [address] [id number] [place] [address] May, [facility] [place] [facility] [address] [id number] [place] [address] May, [facility] [place] [facility] [address] [id number] [place] [address] May, [facility] [place] [facility] [address] [id number] [place] [address] May, [facility] [place] [facility] [address] [id number] [place] [address] May, [facility] [place] [facility] [address] [id number] [place] [address] May, [facility] [place] [facility] [address] [id number] [place] [address] May, [facility] [place] [facility] [address] [id number] [place] [address] Apr, [facility] [place] [facility] [address] [id number] [place] [address] Apr, [facility] [place] [facility] [address] [id number] [place] [address] Apr, [facility] [place] [facility] [address] [id number] [place] [address] Apr, [facility] [place] [facility] [address] [id number] [place] [address] Apr, [facility] [place] [facility] [address] [id number] [place] [address] Apr, [facility] [place] [facility] [address] [id number] [place] [address] Apr, [facility] [place] [facility] [address] [id number] [place] [address] Apr, [facility] [place] [facility] [address] [id number] [place] [address] Apr, [facility] [place] [facility] [address] [id number] [place] [address] March, [facility] [place] [facility] [address] [id number] [place] [address] March, [facility] [place] [facility] [address] [id number] [place] [address] March, [facility] [address] [id number] [place] [address] March, [facility] [place] [facility] [address] [id number] [place] [address] March, [facility] [address] [id number] [place] [address] March, [facility] [address] [id number] [place] [address] March, [facility] [address] [id number] [place] [address] March, [facility] [address] [id number] [place] [address] March, [facility] [address] [id number] [place] [address] March, [facility] [address] [id number] [place] [address] March, [facility] [address] [id number] [place] [address] March, [facility] [address] [id number] [place] [address] March, [facility] [place] [facility] [address] [id number] [place] [address] March, [facility] [place] [facility] [address] [id number] [place] [address] March, [facility] [place] [facility] [address] [id number] [place] [address] March, [facility] [place] [facility] [address] [id number] [place] [address] March, [facility] [place] [facility] [address] [id number] [place] [address] March, [facility] [place] [facility] [address] [id number] [place] [address] March, [facility] [place] [facility] [address] [id number] [place] [address] March, [facility] [place] [facility] [address] [id number] [place] [address] Feb, [facility] [place] [facility] [address] [id number] [place] [address] Feb, [facility] [place] [facility] [address] [id number] [place] [address] Feb, [facility] [place] [facility] [address] [id number] [place] [address] Feb, [facility] [place] [facility] [address] [id number] [place] [address] Feb, [facility] [place] [facility] [address] [id number] [place] [address] Feb, [facility] [place] [facility] [address] [id number] [place] [address] Feb, [facility] [place] [facility] [address] [id number] [place] [address] Feb, [facility] [place] [facility] [address] [id number] [place] [address] Jan, [facility] [place] [facility] [address] [id number] [place] [address] Jan, [facility] [place] [facility] [address] [id number] [place] [address] Jan, [facility] [place] [facility] [address] [id number] [place] [address] Jan, [facility] [place] [facility] [address] [id number] [place] [address] Jan, [facility] [place] [facility] [address] [id number] [place] [address] 13 Jan, 2014 [facility] [place] [facility] [address] [id number] [place] [address] Jan, [facility] [place] [facility] [address] [id number] [place] [address] Jan, [facility] [place] [facility] [address] [id number] [place] [address] Jan, [facility] [place] [facility] [address] [id number] [place] [address] Jan, [facility] [place] [facility] [address] [id number] [place] [address] 27 Dec, 2013 [facility] [place] [facility] [address] [id number] [place] [address] Dec, [facility] [place] [facility] [address] [id number] [place] [address] Dec, [facility] [place] [facility] [address] [id number] [place] [address] 2013 [facility] [place] [facility] [address] [id number] [place] [address] 2013 [facility] [place] [facility] [address] [id number] [place] [address] Dec, [facility] [place] [facility] [address] [id number] [place] [address] Dec, [facility] [place] [facility] [address] [id number] [place] [address] Dec, [facility] [place] [facility] [address] [id number] [place] [address] Nov, [facility] [place] [facility] [address] [id number] [place] [address] Nov, [facility] [place] [facility] [address] [id number] [place] [address] Nov, [facility] [address] [id number] [place] [address] Nov, [facility] [place] [facility] [address] [id number] [place] [address] Nov, [facility] [place] [facility] [address] [id number] [place] [address] Nov, [facility] [place] [facility] [address] [id number] [place] [address] Nov, [facility] [place] [facility] [address] [id number] [place] [address] Nov, [facility] [place] [facility] [address] [id number] [place] [address] Nov, [facility] [place] [facility] [address] [id number] [place] [address] Nov, [facility] [place] [facility] [address] [id number] [place] [address] Nov, [facility] [place] [facility] [address] [id number] [place] [address] Nov, [facility] [place] [facility] [address] [id number] [place] [address] Nov, [facility] [place] [facility] [address] [id number] [place] [address] Oct, [facility] [place] [facility] [address] [id number], [place] [address] Oct, [facility] [place] [facility] [address] [id number] [place] [address] Oct, [facility] [place] [facility] [address] [id number] [place] [address] Oct, [facility] [place] [facility] [address] [id number] [place] [address] Oct, [facility] [place] [facility] [address] [id number] [place] [address] 23 Oct, 2013 [facility] [address] [id number] [place] [address] 18 Oct, 2013 [facility] [place] [facility] [address] [id number] [place] [address] 18 Oct, 2013 [facility] [address] [id number] [place] [address] 17 Oct, 2013 [facility] [place] [facility] [address] [id number] [place] [address] 17 Oct, 2013 [facility] [address] [id number] [place] [address] Oct, [facility] [place] [facility] [address] [id number] [place] [address] Oct, [facility] [address] [id number] [place] [address] 02 Oct, 2013 [facility] [place] [facility] [address] [id number] [place] [address] 02 Oct, 2013 [facility] [place] [facility] [address] [id number] [place] [address] 14 Sep, 2013 [facility] [place] [facility] [address] [facility] [id number] [place] [address] 14 Sep, 2013 [facility] [place] [facility] [address] [id number] [place] [address] 05 Sep, 2013 [facility] [place] [facility] [address] [id number] [place] [address] 05 Sep, 2013 [facility] [place] [facility] [address] [id number] [place] [address] 04 Sep, 2013 [facility] [place] [facility] [address] [id number] [place] [address] Sep, [facility] [place] [facility] [address] [facility] [id number] [place] [address] 04 Sep, 2013 [facility] [place] [facility] [address] [id number] [place] [address] Sep, [facility] [place] [facility] [address] [id number] [place] [address] Sep, [facility] [place] [facility] [address] [id number] [place] [address] Sep, [facility] [place] [facility] [address] [id number] [place] [address] Aug, [facility] [place] [facility] [address] [id number] [place] [address] Aug, [facility] [place] [facility] [address] [id number] [place] [address] Aug, [facility] [place] [facility] [address] [id number] [place] [address] Aug, [facility] [place] [facility] [address] [id number] [place] [address] Aug, [facility] [place] [facility] [address] [id number] [place] [address] Aug, [facility] [place] [facility] [address] [id number] [place] [address] Aug, [facility] [place] [facility] [address] [id number] [place] [address] Aug, [facility] [place] [facility] [address] [id number] [place] [address] Aug, [facility] [place] [facility] [address] [id number] [place] [address] Aug, [facility] [place] [facility] [address] [id number] [place] [address] Aug, [facility] [place] [facility] [address] [id number] [place] [address] Aug, [facility] [place] [facility] [address] [id number] [place] [address] 18 Aug, 2013 [facility] [place] [facility] [address] [id number] [place] [address] 18 Aug, 2013 [facility] [place] [facility] [address] [id number] [place] [address] 17 Aug, 2013 [facility] [place] [facility] [address] [id number] [place] [address] 14 Aug, 2013 [facility] [place] [facility] [address] [id number] [place] [address] 14 Aug, 2013 [facility] [place] [facility] [address] [id number] [place] [address] 01 Aug, 2013 [facility] [place] [facility] [address] [id number] [place] [address] 20 Jul, 2013 [facility] [place] [facility] [address] [id number] [place] [address] 19 Jul, 2013 [facility] [place] [facility] [address] [id number] [place] [address] 18 Jul, 2013 [facility] [place] [facility] [address] [id number] [place] [address] 11 Jul, 2013 [facility] [place] [facility] [address] [id number] [place] [address] 11 Jul, 2013 [facility] [place] [facility] [address] [id number] [place] [address] 28 Jun, 2013 [facility] [place] [facility] [address] [id number], [place] [address] Jun, [facility] [place] [facility] [address] [id number] [place] [address] 23 Jun, 2013 [facility] [place] [facility] [address] [id number] [place] [address] 15 Jun, 2013 [facility] [place] [facility] [address] [id number] [place] [address] 14 Jun, 2013 [facility] [place] [facility] [address] [id number] [place] [address] Jun, [facility] [address] [id number] [place] [address] Jun, [facility] [address] [id number] [place] [address] Jun, [facility] [address] [id number] [place] [address] Jun, [facility] [address] [id number] [place] [address] Jun, [facility] [address] [id number] [place] [address] May, [facility] [address] [id number] [place] [address] May, [facility] [address] [id number] [place] [address] May, [facility] [address] [id number] [place] [address] May, [facility] [address] [id number] [place] [address] May, [facility] [address] [id number] [place] [address] May, [facility] [address] [id number] [place] [address] May, [facility] [address] [id number] [place] [address] May, [facility] [place] [facility] [address] [id number] [place] [address] May, [facility] [place] [facility] [address] [id number] [place] [address] Apr, [facility] [place] [facility] [address] [id number] [place] [address] Apr, [facility] [place] [facility] [address] [id number] [place] [address] Apr, [facility] [address] [id number] [place] [address] Apr, [facility] [address] [id number] [place] [address] Apr, [facility] [place] [facility] [address] [id number] [place] [address] Apr, [facility] [address] [id number] [place] [address] Apr, [facility] [address] [id number] [place] [address] March, [facility] [address] [id number] [place] [address] Feb, [facility] [address] [id number] [place] [address] Feb, [facility] [address] [id number] [place] [address] Feb, [facility] [address] [id number] [place] [address] Jan, [facility] [place] [facility] [address] [id number] [place] [address] Jan, [facility] [place] [facility] [address] [id number], [place] [address] Jan, [facility] [place] [facility] [address] [id number] [place] [address] 14 Jan, 2013 [facility] [place] [facility] [address] [id number] [place] [address] 12 Jan, 2013 [facility] [place] [facility] [address] [id number] [place] [address] 08 Jan, 2013 [facility] [place] [facility] [address] [id number], [place] [address] 07 Jan, 2013 [facility] [address] [id number] [place] [address] 04 Jan, 2013 [facility] [place] [facility] [address] [id number] [place] [address] 28 Dec, 2012 [facility] [place] [facility] [address] [id number] [place] [address] 25 Dec, 2012 [facility] [place] [facility] [address] [id number] [place] [address] 13 Dec, 2012 [facility] [place] [facility] [address] [id number] [place] [address] 11 Dec, 2012 [facility] [place] [facility] [address] [id number] [place] [address] 07 Dec, 2012 [facility] [address] [id number] [place] [address] 06 Dec, 2012 [facility] [address] [id number] [place] [address] 05 Dec, 2012 [facility] [place] [facility] [address] [id number] [place] [address] Nov, [facility] [address] [id number] [place] [address] 24 Nov, [address] [facility] [address] [id number] [place] [address] 18 Nov, 2012 [facility] [place] [facility] [address] [id number] [place] [address] 15 Nov, 2012 [facility] [place] [facility] [address] [id number] [place] [address] 10 Nov, 2012 [facility] [place] [facility] [address] [id number] [place] [address] 10 Nov, 2012 [facility] [place] [facility] [address] [id number] [place] [address] Nov, [facility] [place] [facility] [address] [id number] [place] [address] Oct, [facility] [place] [facility] [address] [id number] [place] [address] Oct, [facility] [address] [id number] [place] [address] Oct, [facility] [place] [facility] [address] [id number] [place] [address] Oct, [facility] [address] [id number] [place] [address] Oct, [facility] [address] [id number] [place] [address] Oct, [facility] [address] [id number] [place] [address] Oct, [facility] [address] [id number] [place] [address] Oct, [facility] [address] [id number] [place] [address] Oct, [facility] [place] [facility] [address] [id number] [place] [address] Oct, [facility] [place] [facility] [address] [id number] [place] [address] Oct, [facility] [place] [facility] [address] [id number] [place] [address] Oct, [facility] [place] [facility] [address] [id number] [place] [address] Sep, [facility] [place] [facility] [address] [id number] [place] [address] Sep, [facility] [place] [facility] [address] [id number] [place] [address] Sep, [facility] [place] [facility] [address] [id number], [place] [address] Sep, [facility] [place] [facility] [address] [id number] [place] [address] Sep, [facility] [place] [facility] [address] [id number], [place] [address] Sep, [facility] [place] [facility] [address] [id number] [place] [address] Sep, [facility] [place] [facility] [address] [id number], [place] [address] Sep, [facility] [place] [facility] [address] [id number] [place] [address] Sep, [facility] [place] [facility] [address] [id number] [place] [address] Sep, [facility] [place] [facility] [address] [id number], [place] [address] Sep, [facility] [place] [facility] [address] [id number], [place] [address] Aug, [facility] [place] [facility] [address] [id number], [place] [address] Aug, [facility] [place] [facility] [address] [id number], [place] [address] Aug, [facility] [place] [facility] [address] [id number], [place] [address] Aug, [facility] [place] [facility] [address] [id number], [place] [address] Aug, [facility] [place] [facility] [address] [id number], [place] [address] Aug, [facility] [place] [facility] [address] [id number], [place] [address] Aug, [facility] [place] [facility] [address] [id number], [place] [address] Aug, [facility] [place] [facility] [address] [id number] [place] [address] Aug, [facility] [place] [facility] [address] [id number] [place] [address] Aug, [facility] [place] [facility] [address] [id number] [place] [address] Jul, [facility] [place] [facility] [address] [id number] [place] [address] Jul, [facility] [place] [facility] [address] [id number] [place] [address] Jul, [facility] [place] [facility] [address] [id number] [place] [address] Jul, [facility] [place] [facility] [address] [id number] [place] [address] Jun, [facility] [place] [facility] [address] [id number] [place] [address] Jun, [facility] [place] [facility] [address] [id number] [place] [address] Jun, [facility] [place] [facility] [address] [id number] [place] [address] Jun, [facility] [place] [facility] [address] [id number] [place] [address] Jun, [facility] [place] [facility] [address] [id number] [place] [address] Jun, [facility] [place] [facility] [address] [id number] [place] [address] Jun, [facility] [place] [facility] [address] [id number] [place] [address] May, [facility] [place] [facility] [address] [id number] [place] [address] May, [facility] [place] [facility] [address] [id number] [place] [address] May, [facility] [place] [facility] [address] [id number] [place] [address] May, [facility] [place] [facility] [address] [id number] [place] [address] May, [facility] [place] [facility] [address] [id number] [place] [address] Apr, [facility] [place] [facility] [address] [id number] [place] [address] Apr, [facility] [place] [facility] [address] [id number] [place] [address] Apr, [facility] [place] [facility] [address] [id number] [place] [address] Apr, [facility] [place] [facility] [address] [id number] [place] [address] Apr, [facility] [place] [facility] [address] [id number] [place] [address] March, [facility] [place] [facility] [address] [id number] [place] [address] March, [facility] [place] [facility] [address] [id number] [place] [address] March, [facility] [place] [facility] [address] [id number] [place] [address] March, [facility] [place] [facility] [address] [id number] [place] [address] March, [facility] [place] [facility] [address] [id number] [place] [address] March, [facility] [place] [facility] [address] [id number] [place] [address] March, [facility] [place] [facility] [address] [id number] [place] [address] March, [facility] [place] [facility] [address] [id number] [place] [address] March, [facility] [address] [id number] [place] [address] March, [facility] [place] [facility] [address] [id number] [place] [address] Feb, [facility] [address] [id number] [place] [address] Feb, [facility] [place] [facility] [address] [id number] [place] [address] Feb, [facility] [address] [id number] [place] [address] Feb, [facility] [place] [facility] [address] [id number] [place] [address] Feb, [facility] [address] [id number] [place] [address] Feb, [facility] [address] [id number] [place] [address] Feb, [facility] [place] [facility] [address] [id number] [place] [address] Feb, [facility] [place] [facility] [address] [id number] [place] [address] Feb, [facility] [place] [facility] [address] [id number] [place] [address] Jan, [facility] [place] [facility] [address] [id number] [place] [address] Jan, [facility] [place] [facility] [address] [id number] [place] [address] Jan, [facility] [place] [facility] [address] [id number] [place] [address] Jan, [facility] [place] [facility] [address] [id number] [place] [address] Dec, [facility] [place] [facility] [address] [facility] [id number], [place] [address] Dec, [facility] [address] [facility] [id number] [id number] Nov, [facility] [address] [facility] [id number], [place] [address] Nov, [facility] [address] [facility] [id number], [place] [address] Nov, [facility] [address] [id number] [place] [address] Nov, [facility] [address] [facility] [id number] [place] [address] Nov, [facility] [address] [id number], [place] [address] Oct, [facility] [id number], [place] [address] Oct, [facility] [address] [id number], [place] [address] Oct, [facility] [id number], [place] [address] Oct, [facility] [address] [id number], [place] [address] Oct, [facility] [id number], [place] [address] Oct, [facility] [address] [facility] [id number], [place] [address] Oct, [facility] [address] [facility] [id number], [place] [address] Oct, [facility] [address] [facility] [id number], [place] [address] Sep, IMMUNIZATIONS No Known Immunizations SOCIAL HISTORY Never Assessed REASON FOR VISIT Controlled Med Refill/Resend PLAN OF CARE VITAL SIGNS MEDICATIONS Medication [...] Surgical history information Hospitalization History [facility]- Urosepsis, abd pain and fever, discharged 11/27/2017 11/26/2017 Hospitalization History [facility]- Went Unrepsonsive, Hit head 2017 Hospitalization History [facility]- Back Pain 05/05/2018
--- OUTSIDE RECORDS SUMMARY | 2019-04-16 15:54 | XMS REPORT ---
Author Author SHANIQUE VEGA [facility] Address [address] [place] [address] Care Team Providers Care Network Cabler Name Role Phone SHANIQUE VEGA Unavailable PROBLEMS Type Condition ICD9-CM Code YRS40-OJ Code Onset Dates Condition Status SNOMED Code Problem Reactive depression F32.9 Active 29024577 Problem Anxiety F41.9 Active 77534760 Problem Pharyngeal dysphagia R13.13 Active 48267293210784 Problem Suprapubic catheter Z93.59 Active 258514334 Problem Encounter for suprapubic catheter care Z43.5 Active 501050604 Problem Insomnia G47.00 Active 529328207 Problem Peripheral vascular disease I73.9 Active 932898092 Problem 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 Active 70903622 Problem Paroxysmal atrial fibrillation I48.0 Active 566907104 Problem Hypertension I10 Active 07206459 Problem Other chronic pain G89.29 Active 71645756 Problem Low back pain M54.5 Active 692329604 Problem Coronary artery disease I25.10 Active 07800200 Problem Type 2 diabetes mellitus without complication, without long-term current use of insulin E11.9 Active 130584616 Problem Hyperlipidemia E78.5 Active 76278656 Problem Ventral hernia without obstruction or gangrene K43.9 Active 214509375 ALLERGIES No Information ENCOUNTERS Encounter Location Date Diagnosis [facility] [address] [facility] [id number], [place] [address] Sep, Via [facility] [address] [place] [id number] Aug, Cystitis N30.90 [facility] [address] [id number] [address] Aug, [facility] [address] [id number], [place] [address] Aug, Other chronic pain G89.29 [facility] [address] [id number], [place] [address] Aug, Via [facility] [address] [place] [id number] Aug, Encounter for suprapubic catheter care Z43.5 [facility] [address] [id number], [place] [address] Jul, [facility] [address] [place] [id number] Jul, [facility] [address] [id number], [place] [address] Jul, Other chronic pain G89.29 [facility] [address] [id number], [place] [address] Jul, [place] [address] [id number], [place] [address] Jul, [facility] [address] [place] [id number] Jun, 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 [facility] [address] [id number], [place] [address] Jun, Other chronic pain G89.29 [facility] [address] [id number], [place] [address] Jun, Via [facility] [address] [place] [id number] May, Anxiety F41.9 ; Type 2 diabetes mellitus without complication, without long-term current use of insulin E11.9 ; Hypertension I10 ; Low back pain M54.5 ; Paroxysmal atrial fibrillation I48.0 and 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 [facility] [address] [id number], [place] [address] May, Other chronic pain G89.29 [facility] [address] [place] [id number] May, Low back pain M54.5 [facility] [address] [id number], [place] [address] May, [facility] [address] [facility] [id number], [place] [address] Apr, Other chronic pain G89.29 [facility] [address] [id number], [place] [address] Apr, [facility] [id number] [place] [address] Apr, Via [facility] [address] [place] [id number] Apr, Closed compression fracture of L3 lumbar vertebra with routine healing, subsequent encounter S32.030D [facility] [address] [place] [id number] Apr, Low back pain M54.5 [facility] [address] [place] [id number] Apr, Coccydynia M53.3 [facility] [id number] [place] [address] March, [facility] [id number] [place] [address] March, Other chronic pain G89.29 [facility] [address]00565100[place], [place] [address] March, [facility] [address]00565100[place], [place] [address] March, [facility] [id number] [place] [address] Feb, [facility] [address] [id number], [place] [address] Feb, Other chronic pain G89.29 [facility] [address] [place] [id number] Feb, Other chronic pain G89.29 and Anxiety F41.9 [facility] [id number] [place] [address] Feb, [facility] [address] [facility] [id number], [place] [address] Jan, [facility] [address] [id number], [place] [address] Jan, [facility] [address] [facility] [id number], [place] [address] Jan, [facility] [address] [id number], [place] [address] Jan, [facility] [address] 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 [id number], [place] [address] Nov, [facility] [address] [id number] [address] Nov, Anxiety F41.9 [facility] [address] [place] [id number] Nov, Status post surgery Z98.890 ; Confused R41.0 ; Anxiety F41.9 and Other chronic pain G89.29 [facility] [address] [id number] [address] Nov, Other chronic pain G89.29 [facility] [address] [facility] [id number], [place] [address] Oct, [facility] [id number][place] [address] Oct, Other chronic pain G89.29 [facility] [address]00565100[place], [place] [address] Oct, Anxiety F41.9 [facility] [address] [id number] [address] Sep, Other chronic pain G89.29 [facility] [id number] [place] [id number] Sep, [facility] [address] [place] [id number] Aug, Dysuria R30.0 and Anxiety F41.9 [facility] [address]00565100[place], [place] [address] Aug, [facility] [id number] [place] [id number] Aug, Other chronic pain G89.29 [facility] [address]00565100[place], [place] [address] Jul, Other chronic pain G89.29 [facility] [id number][place] [address] Jun, [facility] [address] [id number] [address] Jun, Other chronic pain G89.29 [facility] [address]00565100[place], [place] [address] Jun, [facility] [address] [id number], [place] [address] May, Other chronic pain G89.29 [facility] [address]00565100[place], [place] [address] Apr, Other chronic pain G89.29 [facility] [address] [place] [address] Apr, Reactive depression F32.9 and Pharyngeal dysphagia R13.13 [facility] [address] [id number], [place] [address] Apr, Urinary tract infection without hematuria, site unspecified N39.0 [facility] [address]005[address], [place] [address] March, Other chronic pain G89.29 [facility] [address]00565100[place], [place] [address] Feb, Other chronic pain G89.29 [facility] [address] [id number], [place] [address] Feb, [facility] [id number] [place] [id number] Feb, [facility] [address] [place] [address] Feb, Dysuria R30.0 and Ventral hernia without obstruction or gangrene K43.9 [facility] [address]00565100[place], [place] [address] Jan, Other chronic pain G89.29 [facility] [id number] [place] [id number] Dec, Other chronic pain G89.29 [facility] [address] [id number] [address] Nov, Other chronic pain G89.29 [facility] [address] [place] [address] Nov, Lymphadenitis I88.9 [facility] [address] [id number], [place] [address] Nov, Other chronic pain G89.29 [facility] [address] [id number], [place] [address] Nov, [facility] [id number], [place] [address] Nov, Other chronic pain G89.29 [facility] [address] [place] [id number] Oct, Low back pain M54.5 ; Hypertension I10 and Type 2 diabetes mellitus without complication, without long-term current use of insulin E11.9 [facility] [address]00565100[place], [place] [address] Oct, [facility] [id number] [place] [address] Oct, [facility] [id number] [place] [address] Oct, [facility] [id number] [place] [address] Oct, [facility] [id number] [place] [address] Sep, [facility] [id number] [place] [address] Sep, [facility] [id number] [place] [address] Aug, Other chronic pain G89.29 [facility] [id number] [place] [address] Jul, [facility] [id number] [place] [address] Jul, [facility] [id number] [place] [address] Jul, [facility] [id number] [place] [address] Jun, [facility] [id number] [place] [address] Jun, [facility] [address] [place] [id number] Jun, Low back pain M54.5 ; Other chronic pain G89.29 and Coronary artery disease I25.10 [facility] [address] [id number], [place] [address] Jun, [facility] [address]00565100[place], [place] [address] May, [facility] [address]00565100[place], [place] [address] May, [facility] [address]00565100[place], [place] [address] May, Other chronic pain G89.29 [facility] [address]00565100[place], [place] [address] May, [facility] [id number] [place] [address] Apr, [facility] [address]00565100[place], [place] [address] Apr, Acute cystitis without hematuria N30.00 [facility] [address] [place] [address] 16 Apr, 2016 Acute cystitis without hematuria N30.00 ; Coronary artery disease I25.10 ; Low back pain M54.5 and Other chronic pain G89.29 [facility] [address]005[address]100[place], [place] [address] Apr, Other chronic pain G89.29 [facility] [address]00565100[place], [place] [address] March, Other chronic pain G89.29 [facility] [address]00565100[place], [place] [address] Feb, [facility] [address]005[address], [place] [address] Feb, Arthritis M19.90 [facility] [address]00565100[place], [place] [address] Feb, [facility] [address]00565100[place], [place] [address] Jan, [facility] [address]005[address]100[place], [place] [address] Jan, [facility] [id number] [place] [address] Jan, Other chronic pain G89.29 [facility] [address]005[address], [place] [address] Jan, Hypertension I10 ; Coronary artery disease I25.10 and Insomnia G47.00 [facility] [address]00565100[place], [place] [address] Jan, [facility] [id number] [place] [address] Dec, Right hip pain M25.551 [facility] [id number] [place] [address] Dec, [facility] [id number] [place] [address] Dec, [facility] [address]00565100[place], [place] [address] Dec, [facility] [address] [place] [address] Dec, Other chronic pain G89.29 [facility] [address]005[address]100[place], [place] [address] Dec, [facility] [address]005[address]100[place], [place] [address] Nov, [facility] [address]100[place], [place] [address] Nov, Other chronic pain G89.29 [facility] [address]005[address]100[place], [place] [address] Nov, Right hip pain M25.551 and Coronary artery disease I25.10 [facility] [address] [id number], [place] [address] Nov, Other chronic pain G89.29 [facility] [id number] [place] [address] Oct, [facility] [id number] [place] [address] Oct, [facility] [id number] [place] [address] Sep, [facility] [id number] [place] [address] Sep, [facility] [id number] [place] [address] Aug, [facility] [id number] [place] [address] Aug, Hypertension I10 ; Coronary artery disease I25.10 and Arthritis M19.90 [facility] [id number] [place] [address] Jun, [facility] [id number] [place] [address] Jun, Essential hypertension, benign 401.1 ; Other chronic pain 338.29 and Chronic airway obstruction, not elsewhere classified 496 [facility] [address]005[address], [place] [address] Jun, [facility] [id number] [place] [address] Jun, [facility] [address] [place] [address] Jun, [facility] [id number] [place] [address] May, [facility] [address], [place] [address] May, [facility] [id number] [place] [address] Apr, [facility] [address] [id number] [place] [address] Apr, [facility] [address] [id number] [place] [address] Apr, [facility] [address] [id number] [place] [address] March, [facility] [address] [id number] [place] [address] March, [facility] [address] [id number] [place] [address] March, [facility] [address] [id number] [place] [address] March, [facility] [id number] [place] [address] March, Sialadenitis 527.2 [facility] [address] [id number] [place] [address] Feb, [facility] [address] [id number] [place] [address] Feb, [facility] [address] [facility] [id number] [place] [address] Feb, [facility] [address] [id number] [place] [address] Feb, [facility] [address] [id number] [place] [address] Feb, [facility] [address] [id number] [place] [address] Jan, [facility] [address] [id number] [place] [address] Jan, [facility] [address] [id number] [place] [address] Jan, [facility] [place] [facility] [address] [id number] [place] [address] Jan, [facility] [place] [facility] [address] [id number] [place] [address] Jan, [facility] [place] [facility] [address] [id number] [place] [address] Jan, [facility] [place] [facility] [address] [id number] [place] [address] Dec, [facility] [place] [facility] [address] [id number] [place] [address] Dec, 2014 [facility] [place] [facility] [address] [id number] [place] [address] Dec, 2014 [facility] [place] [facility] [address] [id number] [place] [address] Dec, [facility] [place] [facility] [address] [id number] [place] [address] Dec, [facility] [place] [facility] [address] [id number] [place] [address] Dec, [facility] [place] [facility] [address] [id number] [place] [address] Nov, [facility] [place] [facility] [address] [id number] [place] [address] Nov, [facility] [place] [facility] [address] [id number] [place] [address] Nov, [facility] [place] [facility] [address] [id number] [place] [address] Nov, [facility] [place] [facility] [address] [id number] [place] [address] Nov, [facility] [place] [facility] [address] [id number] [place] [address] Nov, [facility] [place] [facility] [address] [id number] [place] [address] Nov, [facility] [address] [id number] [place] [address] Nov, [facility] [place] [facility] [address] [id number] [place] [address] Nov, [facility] [place] [facility] [address] [id number] [place] [address] Nov, [facility] [place] [facility] [address] [id number] [place] [address] Nov, [facility] [place] [facility] [address] [id number] [place] [address] Nov, [facility] [place] [facility] [address] [id number] [place] [address] Nov, [facility] [place] [facility] [address] [id number] [place] [address] Nov, [facility] [place] [facility] [address] [id number] [place] [address] Oct, [facility] [place] [facility] [address] [id number] [place] [address] Oct, [facility] [place] [facility] [address] [facility] [id number] [place] [address] Oct, [facility] [place] [facility] [address] [id number] [place] [address] 18 Oct, 2014 [facility] [place] [facility] [address] [id number] [place] [address] 18 Oct, 2014 [facility] [place] [facility] [address] [id number] [place] [address] 17 Oct, 2014 [facility] [place] [facility] [address] [id number] [place] [address] 17 Oct, 2014 [facility] [place] [facility] [address] [id number] [place] [address] 10 Oct, 2014 [facility] [place] [facility] [address] [id number] [place] [address] Oct, [facility] [place] [facility] [address] [id number] [place] [address] Sep, [facility] [place] [facility] [address] [id number] [place] [address] Sep, [facility] [place] [facility] [address] [id number] [place] [address] Sep, [facility] [place] [facility] [address] [id number] [place] [address] Sep, [facility] [place] [facility] [address] [id number] [place] [address] Sep, [facility] [place] [facility] [address] [id number] [place] [address] Sep, [facility] [place] [facility] [address] [id number] [place] [address] Sep, [facility] [place] [facility] [address] [id number] [place] [address] Sep, [facility] [place] [facility] [address] [id number] [place] [address] Sep, [facility] [place] [facility] [address] [id number] [place] [address] Sep, [facility] [place] [facility] [address] [id number] [place] [address] Sep, [facility] [place] [facility] [address] [id number] [place] [address] Sep, [facility] [place] [facility] [address] [id number] [place] [address] Aug, [facility] [place] [facility] [address] [id number] [place] [address] Aug, [facility] [place] [facility] [address] [id number] [place] [address] 29 Aug, 2014 [facility] [place] [facility] [address] [id number] [place] [address] 29 Aug, 2014 [facility] [place] [facility] [address] [id number] [place] [address] 28 Aug, 2014 [facility] [place] [facility] [address] [id number] [place] [address] 28 Aug, 2014 [facility] [place] [facility] [address] [id number] [place] [address] 17 Aug, 2014 [facility] [place] [facility] [address] [id number] [place] [address] 17 Aug, 2014 [facility] [place] [facility] [address] [id number] [place] [address] 30 Jul, 2013 [facility] [place] [facility] [address] [id number] [place] [address] 30 Sep, 2013 [facility] [place] [facility] [address] [id number] [place] [address] 30 Sep, 2013 [facility] [place] [facility] [address] [id number] [place] [address] 30 Sep, 2013 [facility] [place] [facility] [address] [id number] [place] [address] 25 Sep, 2013 [facility] [place] [facility] [address] [id number] [address] 25 Sep, 2013 [facility] [place] [facility] [address] [id number], [place] [address] 15 Sep, 2013 [facility] [place] [facility] [address] [id number] [place] [address] 15 Sep, 2013 [facility] [place] [facility] [address] [id number] [place] [address] 11 Sep, 2013 [facility] [place] [facility] [address] [id number] [place] [address] 11 Sep, 2013 [facility] [place] [facility] [address] [id number] [place] [address] Jun, [facility] [place] [facility] [address] [id number] [place] [address] Jun, [facility] [place] [facility] [address] [id number] [place] [address] Jun, [facility] [place] [facility] [address] [id number] [place] [address] Jun, [facility] [place] [facility] [address] [id number] [place] [address] Jun, [facility] [place] [facility] [address] [id number] [place] [address] Jun, [facility] [place] [facility] [address] [id number] [place] [address] Jun, [facility] [place] [facility] [address] [id number] [place] [address] Jun, [facility] [place] [facility] [address] [id number] [place] [address] Jun, [facility] [place] [facility] [address] [id number] [place] [address] Jun, [facility] [place] [facility] [address] [id number] [place] [address] Jun[facility] [facility] [address] [id number] [place] [address] Jun, [facility] [place] [facility] [address] [id number] [place] [address] Jun, [facility] [place] [facility] [address] [id number] [place] [address] Jun, [facility] [place] [facility] [address] [id number] [place] [address] Jun, [facility] [place] [facility] [address] [id number] [place] [address] Jun, [facility] [place] [facility] [address] [id number] [place] [address] Jun, [facility] [place] [facility] [address] [id number] [place] [address] Jun, [facility] [place] [facility] [address] [id number] [place] [address] Jun, [facility] [place] [facility] [address] [id number] [place] [address] Jun, [facility] [place] [facility] [address] [id number] [place] [address] Jun, [facility] [place] [facility] [address] [id number] [place] [address] Jun, [facility] [place] [facility] [address] [id number] [place] [address] May, [facility] [place] [facility] [address] [id number] [place] [address] May, [facility] [place] [facility] [address] [id number] [place] [address] May, [facility] [place] [facility] [address] [id number] [place] [address] May, [facility] [place] [facility] [address] [id number] [place] [address] May, [facility] [place] [facility] [address] [id number] [place] [address] May, [facility] [place] [facility] [address] [id number] [place] [address] May, [facility] [place] [facility] [address] [id number] [place] [address] May, [facility] [place] [facility] [address] [id number] [place] [address] May, [facility] [place] [address] [id number] [place] [address] May, [facility] [place] [facility] [address] [id number] [place] [address] May, [facility] [place] [facility] [address] [id number] [place] [address] May, [facility] [place] [address] [id number] [place] [address] May, [facility] [place] [facility] [address] [id number] [place] [address] Apr, [facility] [place] [facility] [address] [id number] [place] [address] Apr, [facility] [place] [address] [id number] [place] [address] Apr, [facility] [place] [facility] [address] [id number] [place] [address] Apr, [facility] [place] [facility] [address] [id number] [place] [address] Apr, [facility] [place] [facility] [address] [id number] [place] [address] Apr, [facility] [place] [facility] [address] [id number] [place] [address] Apr, [facility] [place] [facility] [address] [id number] [place] [address] Apr, [facility] [place] [facility] [address] [id number] [place] [address] Apr, [facility] [place] [facility] [address] [id number] [place] [address] March, [facility] [place] [facility] [address] [id number] [place] [address] March, [facility] [place] [address] [id number] [place] [address] March, [facility] [place] [address] [id number] [place] [address] March, [facility] [address] [id number] [place] [address] March, [facility] [address] [id number] [place] [address] March, [facility] [address] [id number] [place] [address] March, [facility] [address] [id number] [place] [address] March, [facility] [address] [id number] [place] [address] March, [facility] [address] [id number] [place] [address] March, [facility] [address] [id number] [place] [address] March, [facility] [address] [id number] [place] [address] March, [facility] [address] [id number] [place] [address] March, [facility] [address] [id number] [place] [address] March, [facility] [address] [id number] [place] [address] March, [facility] [address] [id number] [place] [address] March, [facility] [address] [id number] [place] [address] March, [facility] [address] [id number] [place] [address] March, [facility] [address] [id number] [place] [address] March, [facility] [facility] [address] [id number] [place] [address] March, [facility] [place] [address] [id number] [place] [address] Feb, [facility] [address] [id number] [place] [address] Feb, [facility] [address] [id number] [place] [address] Feb, [facility] [place] [facility] [address] [id number] [place] [address] Feb, [facility] [facility] [address] [id number] [place] [address] Feb, [facility] [facility] [address] [id number] [place] [address] Feb, [facility] [place] [facility] [address] [id number] [place] [address] Feb, [facility] [facility] [address] [id number] [place] [address] Feb, [facility] [address] [id number] [place] [address] Jan, [facility] [address] [id number] [place] [address] Jan, [facility] [address] [id number] [place] [address] Jan, [facility] [address] [id number] [place] [address] 24 Jan, 2014 [facility] [address] [id number] [place] [address] Jan, [facility] [address] [id number] [place] [address] Jan, [facility] [address] [id number] [place] [address] Jan, [facility] [address] [id number] [place] [address] Jan, [facility] [address] [id number] [place] [address] Jan, [facility] [address] [id number] [place] [address] Jan, [facility] [address] [id number] [place] [address] Dec, [facility] [address] [id number] [place] [address] Dec, [facility] [address] [id number] [place] [address] Dec, [facility] [address] [id number] [place] [address] Dec, [facility] [address] [id number] [place] [address] Dec, [facility] [address] [id number] [place] [address] Dec, [facility] [address] [id number] [place] [address] Dec, [facility] [address] [id number] [place] [address] Dec, [facility] [place] [facility] [address] [id number] [place] [address] Nov, [facility] [address] [id number] [place] [address] Nov, [facility] [address] [id number] [place] [address] Nov, [facility] [address] [id number] [place] [address] Nov, [facility] [address] [id number] [place] [address] Nov, [facility] [address] [id number] [place] [address] Nov, [facility] [address] [id number] [place] [address] Nov, [facility] [address] [id number] [place] [address] Nov, [facility] [address] [id number] [place] [address] Nov, [facility] [address] [id number] [place] [address] Nov, [facility] [address] [id number] [place] [address] Nov, [facility] [address] [id number] [place] [address] Nov, [facility] [address] [id number] [place] [address] Nov, [facility] [address] [id number] [place] [address] Oct, [facility] [address] [id number] [place] [address] Oct, [facility] [address] [id number], [place] [address] Oct, [facility] [address] [id number] [place] [address] Oct, [facility] [address] [id number] [place] [address] Oct, [facility] [address] [id number] [place] [address] Oct, [facility] [address] [id number] [place] [address] 18 Oct, 2013 [facility] [address] [id number] [place] [address] 18 Oct, 2013 [facility] [address] [id number] [place] [address] 17 Oct, 2013 [facility] [address] [id number] [place] [address] 17 Oct, 2013 [facility] [address] [id number] [place] [address] 03 Oct, 2013 [facility] [address] [id number] [place] [address] 03 Oct, 2013 [facility] [address] [id number] [place] [address] 02 Oct, 2013 [facility] [address] [id number] [place] [address] 02 Oct, 2013 [facility] [address] [id number] [place] [address] 14 Sep, 2013 [facility] [address] [id number] [place] [address] 14 Sep, 2013 [facility] [address] [facility] [id number] [place] [address] 05 Sep, 2013 [facility] [address] [id number] [place] [address] 05 Sep, 2013 [facility] [address] [id number], [place] [address] Sep, [facility] [address] [id number] [place] [address] Sep, [facility] [address] [id number] [place] [address] Sep, [facility] [address] [facility] [id number], [place] [address] Sep, [facility] [address] [id number] [place] [address] Sep, [facility] [address] [id number] [place] [address] Sep, [facility] [address] [id number] [place] [address] Aug, [facility] [address] [id number] [place] [address] Aug, [facility] [place] [address] [id number] [place] [address] Aug, [facility] [place] [address] [id number] [place] [address] Aug, [facility] [place] [address] [id number] [place] [address] Aug, [facility] [place] [address] [id number] [place] [address] Aug, [facility] [address] [id number] [place] [address] Aug, [facility] [place] [address] [id number] [place] [address] Aug, [facility] [place] [address] [id number] [place] [address] Aug, [facility] [address] [id number] [place] [address] Aug, [facility] [place] [address] [id number] [place] [address] Aug, [facility] [place] [address] [id number] [place] [address] Aug, [facility] [place] [address] [id number] [place] [address] Aug, [facility] [address] [id number] [place] [address] 18 Aug, 2013 [facility] [address] [id number] [place] [address] 17 Aug, 2013 [facility] [address] [id number] [place] [address] 14 Aug, 2013 [facility] [address] [id number] [place] [address] 14 Aug, 2013 [facility] [place] [address] [id number] [place] [address] Aug, [facility] [address] [id number] [place] [address] 20 Jul, 2013 [facility] [address] [id number] [place] [address] 19 Jul, 2013 [facility] [place] [facility] [address] [id number] [place] [address] 18 Jul, 2013 [facility] [place] [address] [id number] [place] [address] 11 Jul, 2013 [facility] [place] [facility] [address] [id number] [place] [address] 11 Jul, 2013 [facility] [place] [facility] [address] [id number] [place] [address] Jun, [facility] [place] [facility] [address] [id number] [place] [address] Jun, [facility] [address] [id number], [place] [address] Jun, [facility] [place] [facility] [address] [id number] [place] [address] 15 Jun, 2013 [facility] [place] [facility] [address] [id number] [place] [address] 14 Jun, 2013 [facility] [place] [address] [id number] [place] [address] Jun, [facility] [place] [facility] [address] [id number] [place] [address] Jun, [facility] [address] [id number] [place] [address] Jun, [facility] [address] [id number] [place] [address] Jun, [facility] [address] [id number] [place] [address] Jun, [facility] [address] [id number] [place] [address] May, [facility] [address] [id number] [place] [address] May, [facility] [address] [id number] [place] [address] May, [facility] [address] [id number] [place] [address] May, [facility] [address] [id number] [place] [address] May, [facility] [address] [id number] [place] [address] May, [facility] [address] [id number] [place] [address] May, [facility] [address] [id number] [place] [address] May, [facility] [address] [id number] [place] [address] May, [facility] [place] [facility] [address] [id number] [place] [address] Apr, [facility] [place] [facility] [address] [id number] [place] [address] Apr, [facility] [place] [facility] [address] [id number] [place] [address] Apr, [facility] [place] [facility] [address] [id number] [place] [address] Apr, [facility] [address] [id number] [place] [address] Apr, [facility] [address] [id number] [place] [address] Apr, [facility] [place] [facility] [address] [id number] [place] [address] Apr, [facility] [address] [id number] [place] [address] March, [facility] [address] [id number] [place] [address] Feb, [facility] [address] [id number] [place] [address] Feb, [facility] [address] [id number] [place] [address] Feb, [facility] [address] [id number] [place] [address] Jan, [facility] [address] [id number] [place] [address] Jan, [facility] [address] [id number] [place] [address] Jan, [facility] [place] [facility] [address] [id number], [place] [address] 14 Jan, 2013 [facility] [place] [facility] [address] [id number] [place] [address] 12 Jan, 2013 [facility] [place] [facility] [address] [id number] [place] [address] 08 Jan, 2013 [facility] [place] [facility] [address] [id number] [place] [address] 07 Jan, 2013 [facility] [place] [facility] [address] [id number] [place] [address] Jan, [facility] [address] [id number] [place] [address] 28 Dec, 2012 [facility] [place] [facility] [address] [id number] [place] [address] 25 Dec, 2012 [facility] [place] [facility] [address] [id number] [place] [address] 13 Dec, 2012 [facility] [place] [facility] [address] [id number] [place] [address] 11 Dec, 2012 [facility] [address] [id number] [place] [address] 07 Dec, 2012 [facility] [place] [facility] [address] [id number] [place] [address] 06 Dec, 2012 [facility] [address] [id number] [place] [address] 05 Dec, 2012 [facility] [address] [id number] [place] [address] Nov, [facility] [place] [facility] [address] [id number] [place] [address] 24 Nov, 2012 [facility] [address] [id number] [place] [address] 18 Nov, 2012 [facility] [address] [id number] [place] [address] 15 Nov, 2012 [facility] [place] [facility] [address] [id number] [place] [address] 10 Nov, 2012 [facility] [place] [facility] [address] [id number] [place] [address] 10 Nov, 2012 [facility] [place] [facility] [address] [id number] [place] [address] 02 Nov, 2012 [facility] [place] [facility] [address] [id number] [place] [address] Oct, [facility] [place] [facility] [address] [id number] [place] [address] Oct, [facility] [place] [facility] [address] [id number] [place] [address] Oct, [facility] [place] [facility] [address] [id number] [place] [address] Oct, [facility] [place] [facility] [address] [id number] [place] [address] Oct, [facility] [address] [id number] [place] [address] Oct, [facility] [place] [facility] [address] [id number] [place] [address] Oct, [facility] [address] [id number] [place] [address] Oct, [facility] [address] [id number] [place] [address] Oct, [facility] [place] [facility] [address] [id number] [place] [address] Oct, [facility] [place] [facility] [address] [id number] [place] [address] Oct, [facility] [place] [facility] [address] [id number] [place] [address] Oct, [facility] [place] [facility] [address] [id number] [place] [address] Sep, [facility] [place] [facility] [address] [id number] [place] [address] Sep, [facility] [place] [facility] [address] [id number] [place] [address] Sep, [facility] [place] [facility] [address] [id number] [place] [address] Sep, [facility] [place] [facility] [address] [id number], [place] [address] Sep, [facility] [place] [facility] [address] [id number] [place] [address] Sep, [facility] [place] [facility] [address] [id number], [place] [address] Sep, [facility] [place] [facility] [address] [id number] [place] [address] Sep, [facility] [place] [facility] [address] [id number], [place] [address] Sep, [facility] [place] [facility] [address] [id number] [place] [address] Sep, [facility] [place] [facility] [address] [id number] [place] [address] Sep, [facility] [place] [facility] [address] [id number], [place] [address] Aug, [facility] [place] [facility] [address] [id number], [place] [address] Aug, [facility] [place] [facility] [address] [id number], [place] [address] Aug, [facility] [place] [facility] [address] [id number], [place] [address] Aug, [facility] [place] [facility] [address] [id number], [place] [address] Aug, [facility] [place] [facility] [address] [id number], [place] [address] Aug, [facility] [place] [facility] [address] [id number], [place] [address] Aug, [facility] [place] [facility] [address] [id number], [place] [address] Aug, [facility] [place] [facility] [address] [id number], [place] [address] Aug, [facility] [place] [facility] [address] [id number] [place] [address] Aug, [facility] [place] [facility] [address] [id number] [place] [address] Jul, [facility] [place] [facility] [address] [id number] [place] [address] Jul, [facility] [place] [facility] [address] [id number] [place] [address] Jul, [facility] [place] [facility] [address] [id number] [place] [address] Jul, [facility] [place] [facility] [address] [id number] [place] [address] Jun, [facility] [place] [facility] [address] [id number] [place] [address] Jun, [facility] [place] [facility] [address] [id number] [place] [address] Jun, [facility] [place] [facility] [address] [id number] [place] [address] Jun, [facility] [place] [facility] [address] [id number] [place] [address] Jun, [facility] [place] [facility] [address] [id number] [place] [address] Jun, [facility] [place] [facility] [address] [id number] [place] [address] Jun, [facility] [place] [facility] [address] [id number] [place] [address] May, [facility] [place] [facility] [address] [id number] [place] [address] May, [facility] [place] [facility] [address] [id number] [place] [address] May, [facility] [place] [facility] [address] [id number] [place] [address] May, [facility] [place] [facility] [address] [id number] [place] [address] May, [facility] [place] [facility] [address] [id number] [place] [address] Apr, [facility] [place] [facility] [address] [id number] [place] [address] Apr, [facility] [place] [facility] [address] [id number] [place] [address] Apr, [facility] [place] [facility] [address] [id number] [place] [address] Apr, [facility] [place] [facility] [address] [id number] [place] [address] Apr, [facility] [place] [facility] [address] [id number] [place] [address] March, [facility] [place] [facility] [address] [id number] [place] [address] March, [facility] [place] [facility] [address] [id number] [place] [address] March, [facility] [place] [facility] [address] [id number] [place] [address] March, [facility] [place] [facility] [address] [id number] [place] [address] March, [facility] [place] [facility] [address] [id number] [place] [address] March, [facility] [place] [facility] [address] [id number] [place] [address] March, [facility] [place] [facility] [address] [id number] [place] [address] March, [facility] [place] [facility] [address] [id number] [place] [address] March, [facility] [place] [facility] [address] [id number] [place] [address] March, [facility] [address] [id number] [place] [address] 30 Feb, 2012 [facility] [place] [facility] [address] [id number] [place] [address] Feb, [facility] [place] [facility] [address] [id number] [place] [address] Feb, [facility] [place] [facility] [address] [id number] [place] [address] Feb, [facility] [place] [facility] [address] [id number] [place] [address] Feb, [facility] [place] [facility] [address] [id number] [place] [address] Feb, [facility] [address] [id number] [place] [address] Feb, [facility] [place] [facility] [address] [id number] [place] [address] Feb, [facility] [place] [facility] [address] [id number] [place] [address] Feb, [facility] [place] [facility] [address] [id number] [place] [address] Jan, [facility] [place] [facility] [address] [id number] [place] [address] Jan, [facility] [place] [facility] [address] [id number] [place] [address] 05 Jan, 2012 [facility] [place] [facility] [address] [id number] [place] [address] Jan, [facility] [place] [facility] [address] [id number] [place] [address] Dec, [facility] [place] [facility] [address] [id number] [place] [address] Dec, [facility] [address] [facility] [id number], [place] [address] Nov, [facility] [address] [facility] [id number], [place] [address] Nov, [facility] [address] [facility] [id number], [place] [address] Nov, [facility] [address] [facility] [id number], [place] [address] Nov, [facility] [address] [facility] [id number], [place] [address] Nov, [facility] [address] [facility] [id number] [place] [id number] Oct, [facility] [id number], [place] [address] Oct, [facility] [id number], [place] [address] Oct, [facility] [id number], [place] [address] Oct, [facility] [id number], [place] [address] Oct, [facility] [id number], [place] [address] Oct, [facility] [id number], [place] [address] Oct, [facility] [id number], [place] [address] Oct, [facility] [id number], [place] [address] Sep, IMMUNIZATIONS No Known Immunizations SOCIAL HISTORY [...] History No Surgical history information Hospitalization History [facility]- Urosepsis, abd pain and fever, discharged 11/27/2017 11/26/2017 Hospitalization History [facility] [place]- Went Unrepsonsive, Hit head 2017 Hospitalization History [facility] [place]- Back Pain 05/05/2018
[2019-04-16 16:01] LABS: ALANINE AMINOTRANSFERASE 12 U/L (0-55); ALBUMIN 2.9 GM/DL (3.2-4.5); ALKALINE PHOSPHATASE 42 U/L (40-136); BILIRUBIN,TOTAL 0.2 MG/DL (0.1-1.0); BUN/CREATININE RATIO 75; CALCIUM 7.9 MG/DL (8.5-10.1); CARBON DIOXIDE 21 MMOL/L (21-32); CHLORIDE 105 MMOL/L (98-107); CREATININE SERUM 0.75 MG/DL (0.60-1.30); GFR ESTIMATED > 60; GLUCOSE 164 MG/DL (70-105); MAGNESIUM 1.8 MG/DL (1.8-2.4); POTASSIUM 4.6 MMOL/L (3.6-5.0); SODIUM 135 MMOL/L (135-145); TOTAL PROTEIN 4.9 GM/DL (6.4-8.2)
[2019-04-16 16:23] LABS: BILIRUBIN,URINE NEGATIVE (NEGATIVE); CLARITY,URINE VERY CLOUDY; COLOR,URINE YELLOW; GLUCOSE, URINE (UA) NEGATIVE (NEGATIVE); KETONES,URINE NEGATIVE (NEGATIVE); LEUKOCYTE ESTERASE ,URINE 3+ (NEGATIVE); NITRITE,URINE POSITIVE (NEGATIVE); PH,URINE 6.5 (5-9); PROTEIN,URINE 2+ (NEGATIVE); UROBILINOGEN,URINE NORMAL (NORMAL)
[2019-04-16 16:25] LABS: BAND NEUTROPHILS 2 %; BASOPHILS % (MANUAL) 0 %; EOSINOPHILS % (MANUAL) 0 %; LYMPHOCYTES % (MANUAL) 20 %; MONOCYTES % (MANUAL) 7 %; NEUTROPHILS % (MANUAL) 71 %
[2019-04-16 16:26] LABS: ANISOCYTOSIS SLIGHT; POLYCHROMASIA SLIGHT
--- NOTE | 2019-04-16 16:26 | Consultation-Cardiology ---
HPI-Cardiology Cardiology Consultation: Date of Consultation 04/16/19 Time Seen by a Provider: 16:00 Date of Admission 04-16-19 Attending Physician Admitting Physician Itz Chacon MD Consulting Physician Gage Torrez MD HPI: Chief Complaint: Hypotension A-fib Ms. Barnes is an 83 year old female. I have seen her in the ED. She is a poor historian, no family is at the bedside. She reports for approx the last 24 hours she has been having abdominal discomfort. She states she woke up early yesterday morning with diarrhea and vomiting. She reports it was "black as tar". She states she felt dizzy and weak. She reports she continues to feels weak. She denies any c/o palpitations. She has chronic dyspnea which has been worse lately. She denies any syncope. Review of Systems-Cardiology Review of Systems Constitutional: No chills, No fever; malaise Eyes: No vision change Ears/Nose/Throat: No epistaxis, No recent hearing loss, No ulcerations Respiratory: As described under HPI Cardiovascular: As described under HPI Gastrointestinal: As described under HPI Genitourinary: other (indwelling urinary catheter) Musculoskeletal: joint pain (chronic) Skin: No rash, No ulcerations Psychiatric/Neurological: No seizure, No focal weakness, No syncope Hematologic: easy bleeding, easy bruising [id number] Hx Patient Social History Alcohol Use: Denies Use Recreational Drug Use: No Smoking Status: Former Smoker Former smoker/When Quit: Feb 03, 2013 Type Used: Cigarettes 2nd Hand Smoke Exposure: No Recent Foreign Travel: No Immunizations Up To Date Tetanus Booster (TDap): Unknown Date of Pneumonia Vaccine: Sep 05, 2014 Date of Influenza Vaccine: Aug 19, 2017 Past Medical History PMH As described under Assessment. Family Medical History Family Medical History: She reports fam history of DC and heart disease and hypertension and stroke, but is unable to provide details Family History: Cancer 09 SISTER Cancer of colon Cataract 03 MOTHER, Onset:Unknown Family history: Allergy 03 FATHER, Onset:Unknown 03 MOTHER, Onset:Unknown Family history: Arthritis 03 FATHER, Onset:Unknown 03 MOTHER, Onset:Unknown 09 SISTER, Onset:Unknown Family history: Cardiovascular disease 03 FATHER, Onset:Unknown 03 MOTHER, Onset:Unknown 09 BROTHER, Onset:Unknown 09 SISTER, Onset:Unknown Family history: Diabetes mellitus 03 MOTHER, Onset:Unknown Family history: Gastrointestinal disease 03 FATHER, Onset:Unknown Family history: Hypertension 03 MOTHER, Onset:Unknown Family history: Osteoporosis 03 MOTHER, Onset:Unknown Hearing loss 03 FATHER, Onset:Unknown Heart disease 03 FATHER, Onset:Unknown 03 MOTHER, Onset:Unknown 09 BROTHER, Onset:Unknown Hypercholesterolemia 03 MOTHER, Onset:Unknown Malignant neoplasm of lung 09 SISTER, Onset:Unknown Myocardial infarction 09 BROTHER, Onset:Unknown Parkinson's disease Stroke 03 FATHER, Onset:Unknown Thyroid disease No Family History of: Abdominal aortic aneurysm [place]'s disease Alcoholism Aphasia Chest pain Congenital heart disease Congestive heart failure Cystic fibrosis Dementia Dysphagia Family history: Alzheimer's disease Family history: Asthma Family history: Breast disease Family history: Coronary thrombosis Family history: Glaucoma Family history: Thyroid disorder Headache Hereditary disease History of - anemia History of - disorder History of - respiratory disease History of drug abuse Human immunodeficiency virus (HIV) seropositivity Infertile Kidney disease Prostate cancer Psychotic disorder Seizure disorder Tuberculosis Visual impairment Allergies and Home Medications Allergies Coded Allergies: Sulfa (Sulfonamide Antibiotics) (Verified Allergy, Unknown, 04/16/19) diphenhydramine HCl (Verified Allergy, Unknown, 04/16/19) hydrochlorothiazide (Unverified Allergy, Unknown, 04/16/19) varenicline tartrate (Verified Allergy, Unknown, 04/16/19) Home Medications Acetaminophen 325 Mg Tablet, 650 MG PO Q4H PRN for PAIN-MILD, (Reported) TAKES 2 (325MG) TABLETS Albuterol Sulfate 8.5 Gm Hfa.aer.ad, 1 PUFF IH Q6H PRN for SHORTNESS OF BREATH, (Reported) Apixaban 5 Mg Tablet, 5 MG PO BID, (Reported) Ascorbate Calcium 500 Mg Tablet, 500 MG PO DAILY, (Reported) Aspirin 81 Mg Tab.chew, 81 MG PO DAILY, (Reported) Atorvastatin Calcium 40 Mg Tablet, 40 MG PO HS, (Reported) Budesonide/Formoterol Fumarate 10.2 Gm Hfa.aer.ad, 2 PUFF IH BID, (Reported) Bupropion HCl 300 Mg Tab.er.24h, 300 MG PO HS, (Reported) Carboxymethylcellulose Sodium 15 Ml Drops, 1 DROP OD UD PRN for EYE IRRITATION, (Reported) Furosemide 20 Mg Tablet, 20 MG PO Q48H, (Reported) Gabapentin 400 Mg Capsule, 400 MG PO TID, (Reported) Guaifenesin/Dextromethorphan 237 Ml Liquid, 5 ML PO Q4H PRN for COUGH, (Reported) Ibuprofen 200 Mg Tablet, 400 MG PO Q4H PRN for PAIN-MILD, (Reported) Lorazepam 0.5 Mg Tablet, 0.5 MG PO HS, (Reported) Mag Hydrox/Aluminum Hyd/Simeth 355 Ml Oral.susp, 30 ML PO Q4H PRN for INDIGESTION, (Reported) Metformin HCl 500 Mg Tablet, 500 MG PO 1200, (Reported) Metoprolol Tartrate 50 Mg Tablet, 50 MG PO BID, (Reported) Mirabegron 25 Mg Tab.er.24h, 25 MG PO DAILY, (Reported) Ondansetron HCl 4 Mg Tablet, 4 MG PO Q6H PRN for NAUSEA/VOMITING-1ST LINE, (Reported) Oxybutynin Chloride 10 Mg Tab.er.24, 10 MG PO DAILY, (Reported) Pantoprazole Sodium 40 Mg Tablet.dr, 40 MG PO DAILY, (Reported) Potassium Chloride 20 Meq Tab.er.prt, 40 MEQ PO Q48H, (Reported) TAKES 2 (20MEQ) TABLETS EVERY OTHER DAY WITH FUROSEMIDE Prednisolone Acetate/Pf 5 Ml Drops.susp, 1 DROP OD QID, (Reported) Sertraline HCl 50 Mg Tablet, 50 MG PO DAILY, (Reported) Tamsulosin HCl 0.4 Mg Cap, 0.4 MG PO DAILY, (Reported) Tramadol HCl 50 Mg Tablet, 50 MG PO TID, (Reported) Trazodone HCl 50 Mg Tablet, 25 MG PO HS, (Reported) TAKES 1/2 (50MG) TABLET [Flavoxate 100MG] , 100 MG PO TID PRN for BLADDER SPASMS, (Reported) Physical Exam-Cardiology Physical Exam Vital Signs/I&O 04/16/19 04/16/19 04/16/19 04/17/19 22:00 23:00 23:02 00:00 Temp 97.8 Pulse 101 96 118 109 Resp 16 14 16 B/P (MAP) 114/63 (80) 125/75 (92) 125/75 128/71 (90) Pulse Ox 99 99 99 99 O2 Delivery Nasal Cannula Nasal Cannula Nasal Cannula Nasal Cannula O2 Flow Rate 2.00 2.00 2.00 2.00 04/17/19 04/17/19 04/17/19 04/17/19 00:00 00:07 01:00 01:00 Temp 97.8 Pulse 113 108 Resp 16 B/P (MAP) 118/59 (78) Pulse Ox 99 99 O2 Delivery Nasal Cannula Nasal Cannula O2 Flow Rate 2.00 2.00 04/17/19 04/17/19 04/17/19 04/17/19 02:00 03:00 03:35 04:00 Temp 97.2 Pulse 95 104 94 Resp 16 15 17 B/P (MAP) 124/65 (84) 136/71 (92) 104/68 (80) Pulse Ox 97 98 97 O2 Delivery Nasal Cannula Nasal Cannula Nasal Cannula O2 Flow Rate 2.00 2.00 2.00 04/17/19 04/17/19 04/17/19 04/17/19 04:00 05:00 06:00 07:00 Pulse 89 115 94 Resp 15 17 17 B/P (MAP) 117/78 (91) 132/75 (94) 154/67 (96) Pulse Ox 99 94 97 97 O2 Delivery Nasal Cannula Nasal Cannula Nasal Cannula Nasal Cannula O2 Flow Rate 2.00 2.00 2.00 2.00 04/17/19 04/17/19 04/17/19 07:20 08:01 08:04 Temp 97.6 Pulse 86 90 Resp 18 B/P (MAP) 122/84 (97) Pulse Ox 99 99 O2 Delivery Nasal Cannula Nasal Cannula O2 Flow Rate 2.00 2.00 04/17/19 00:00 Intake Total 2700 ml Output Total 1050 ml Balance 1650 ml Capillary Refill : Constitutional: AAO x 3, well-developed, well-nourished HEENT: PERRL, hard of hearing, oral hygience is good Neck: carotid bruit, carotid pulses are 2 + bilaterally Respiratory: No accessory muscle use, No respiratory distress; rhonchi (scattered), other (SOB with conversation) Cardiovascular: irregularly irregular; No JVD; tachycardia, S1 and S2, systolic murmur Gastrointestinal: tender, audible bowel sounds (hyperactive) Extremities: no lower extremity edema bilateral Neurologic/Psychiatric: grossly intact Skin: pallor; No rash on exposed areas, No ulcerations on exposed areas Data Review Labs Laboratory Tests 04/16/19 15:20: White Blood Count 22.4H, Red Blood Count 2.48L, Hemoglobin 7.5L, Hematocrit 23L, Mean Corpuscular Volume 93, Mean Corpuscular Hemoglobin 30, Mean Corpuscular Hem oglobin Concent 33, Red Cell Distribution Width 14.9H, Platelet Count 283, Mean Platelet Volume 10.4, Neutrophils (%) (Auto) 75, Lymphocytes (%) (Auto) 17, Monocytes (%) (Auto) 7, Eosinophils (%) (Auto) 0, Basophils (%) (Auto) 0, Neutrophils # (Auto) 16.8H, Lymphocytes # (Auto) 3.8, Monocytes # (Auto) 1.7H, Eosinophils # (Auto) 0.1, Basophils # (Auto) 0.0, Neutrophils % (Manual) 71, Lymphocytes % (Manual) 20, Monocytes % (Manual) 7, Eosinophils % (Manual) 0, Basophils % (Manual) 0, Band Neutrophils 2, Polychromasia SLIGHT, Anisocytosis SLIGHT, Prothrombin Time 18.9H, INR Comment 1.5H, Activated Partial Thromboplast Time 31, Sodium Level 135, Potassium Level 4.6, Chloride Level 105, Carbon Dioxide Level 21, Anion Gap 9, Blood Urea Nitrogen 56H, Creatinine 0.75, Estimat Glomerular Filtration Rate > 60, BUN/Creatinine Ratio 75, Glucose Level 164H, Lactic Acid Level 2.64*H, Calcium Level 7.9L, Corrected Calcium 8.8, Magnesium Level 1.8, Total Bilirubin 0.2, Aspartate Amino Transf (AST/SGOT) 15, Alanine Aminotransferase (ALT/SGPT) 12, Alkaline Phosphatase 42, Troponin I < 0.028, Total Protein 4.9L, Albumin 2.9L 04/16/19 16:12: Urine Color YELLOW, Urine Clarity VERY CLOUDYH, Urine pH 6.5, Urine Specific [place] 1.020, Urine Protein 2+H, Urine Glucose (UA) NEGATIVE, Urine Ketones NEGATIVE, Urine Nitrite POSITIVEH, Urine Bilirubin NEGATIVE, Urine Urobilinogen NORMAL, Urine Leukocyte Esterase 3+H, Urine RBC (Auto) 1+H, Urine RBC 0-2, Urine WBC 10-25H, Urine Squamous Epithelial Cells 10-25H, Urine Crystals PRESENTH, Urine Amorphous Sediment LARGE VI URATESH, Urine Bacteria LARGEH, Urine Casts NONE, Urine Mucus NEGATIVE, Urine Culture Indicated CULTURE PENDING 04/16/19 17:40: Lactic Acid Level 1.81 04/17/19 01:21: Hemoglobin 7.0L, Hematocrit 21L, Sodium Level 138, Potassium Level 4.0, Chloride Level 112H, Carbon Dioxide Level 20L, Anion Gap 6, Blood Urea Nitrogen 34H, Creatinine 0.68, Estimat Glomerular Filtration Rate > 60, BUN/Creatinine Ratio 50, Glucose Level 107H, Lactic Acid Level 0.57, Calcium Level 7.5L, Corrected Calcium 8.6, Magnesium Level 1.7L, Total Bilirubin 0.6, Aspartate Amino Transf (AST/SGOT) 14, Alanine Aminotransferase (ALT/SGPT) 12, Alkaline Phosphatase 36L, Total Protein 4.3L, Albumin 2.6L, Phosphorus Level 2.4 04/17/19 02:44: White Blood Count 16.4H, Red Blood Count 2.94L, Hemoglobin 8.5#L, Hematocrit 26L , Mean Corpuscular Volume 87, Mean Corpuscular Hemoglobin 29, Mean Corpuscular Hemoglobin Concent 33, Red Cell Distribution Width 18.1H, Platelet Count 190, Mean Platelet Volume 9.9, Neutrophils (%) (Auto) 74, Lymphocytes (%) (Auto) 18, Monocytes (%) (Auto) 7, Eosinophils (%) (Auto) 1, Basophils (%) (Auto) 0, Neutrophils # (Auto) 12.1H, Lymphocytes # (Auto) 3.0, Monocytes # (Auto) 1.2H, Eosinophils # (Auto) 0.2, Basophils # (Auto) 0.0 04/17/19 08:50: Glucometer 133H ECG Impression ECG Initial ECG Impression: Atrial Fibrillation w/RVR A/P-Cardiology Assessment/Admission Diagnosis GI bleed with hypovolemic shock Suspected UTI with possible sepsis Severe bilateral ICA stenoses; s/p R CEA with Dr Valenzuela at [facility] in Dec 2017; s/p L carotid PCI at [facility] in January 2018 (Dr Valenzuela) Chronic dyspnea likely multi-factorial: COPD and diastolic dysfunction and physical deconditioning. Prolonged hospitalization post-CABG for physical deconditioning in 2014 Atrial fibrillation/flutter of unknown duration, first documented on an ECG of 1 11/27/16 at [facility] for stroke prophylaxis - hold for now H/o old lacunar infarction, including R internal capsule (based on w/u of Dec 2017 at [facility]) S/P right hip replacement Fall due to loss of balance (tripped over walker), no syncope, on 03/10/15 Acute on chronic diastolic CHF on 03/10/15 CAD - s/p [address] Maza at [facility] in : GREY to LAD, SVG to OM1 and SVG to PDA. Cardiac cath of Oct 15, 2017 (done following an MPI that showed apical ischemia) showed widely patent aortocoronary graft to the distal RCA, widely patent aortocoronary graft to OM system, widely patent left internal mammary artery graft to the distal LAD, normal to hyperdynamic LV systolic function with an ejection fraction of approx 70%, normal LVEDP, no evdence of thoracic arotic aneurysm or dissection, mod-sized infrarenal abdominal aortic aneurysm, mild prox stenosis of the left renal artery. For which she has been maintained on ASA and Plavix Peripheral angiogram with runoffs of March 2018: Moderate-sized, infrarenal, saccular abdominal aortic aneurysm. A 70% ostial and proximal stenoses of the renal arteries on both sides. 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 Proximal occlusion of the right superficial femoral artery which reconstitutes via collaterals in its distal portion. There is a 2- vessel runoff in the leg. Multiple up to 75% stenoses in the mid and distal portions of the left superficial femoral artery. For which she was referred to [facility] CTA of the aorta with runoffs of 11-25-17 showed 3.9 cm infrarenal abdominal aortic aneurysm. This has increased by 1 mm since prior examination. 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 James on 11-26-2017 Discussion and Recomendations Complex management issue GI bleed with blood loss hypovolemic shock Advise transfusing GI consult has already been ordered - Dr. Delman She has a h/o chronic a-fib; she is currently in a-fib with RVR. She has been maintained on Eliquis for stroke prophylaxis, however in light of anemia we advise Eliquis be held until source of bleeding has been determined and treated. We advise this be done expediently. She has a h/o PAD and CAD for which she has been maintained on ASA and Plavix. However, we advise holding these also for now until source of bleed has been determined. She has been following with [facility] regarding PAD, we will request the records. Hypotension likely d/t hypovolemia d/t blood loss - hold medications for now Probable UTI with suspected sepsis - management per medical services Monitor lab closely Further recs will be based on her hospital course We would like to thank medical services for this consult SATHISH ABAD April 16, 2019 16:26
[2019-04-16 16:37] LABS: BACTERIA,URINE LARGE /HPF; RBC,URINE 0-2 /HPF
[2019-04-16 16:38] LABS: AMORPHOUS SEDIMENT,UR LARGE AMOR URATES /LPF
--- OUTSIDE RECORDS SUMMARY | 2019-04-16 16:58 | XMS REPORT | Continuity of Care Document ---
Author Organization Unknown Address Unknown Allergies Active Description Code Type Severity Reaction [...] Allergy N/A N/A 05/19/2013 Yes diphenhydramine HCl [id number] Drug Allergy Unknown N/A 09/04/2018 Yes hydrochlorothiazide [id number] Drug Allergy Unknown N/A 09/04/2018 Yes Sulfa (Sulfonamide Antibiotics) [id number] Drug Allergy Unknown N/A 09/04/2018 Yes varenicline tartrate [id number] Drug Allergy Unknown N/A 09/04/2018 Medications There is no data. Problems Date [...] JESUS BUTLER DO 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 11/06/2011 WERDER DO, MARIA DE JESUS F 305.1 NONDEPENDENT TOBACCO [...] F 496 CHRONIC OBSTRUCTIVE PULMONARY DISEASE 11/06/2011 MARKO BUTLER DOEN F 683 ACUTE LYMPHADENITIS 11/06/2011 CAROLINE MENDOZA [...] MENDOZA MD M 683 ACUTE LYMPHADENITIS 11/06/2011 BIAG BOMB SQUAD COMMANDERDESI MenjivarH 246.9 UNSPECIFIED DISORDER OF THYROID 11/06/2011 BAIG BOMB SQUAD COMMANDERDESI Menjivar [place] 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 11/06/2011 BAIG BOMB SQUAD COMMANDER, DESI HOUSTON 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 11/06/2011 BAIG BOMB SQUAD COMMANDER, DESI [place] 496 CHRONIC OBSTRUCTIVE PULMONARY DISEASE 11/06/2011 BAIG BOMB SQUAD COMMANDER, DESI HOUSTON 683 ACUTE LYMPHADENITIS 11/06/2011 BAIG BOMB SQUAD COMMANDER, DESI HOUSTON 246.9 UNSPECIFIED DISORDER OF THYROID 11/06/2011 BAIG BOMB SQUAD COMMANDER, DESI HOUSTON 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 11/06/2011 BAIG BOMB SQUAD COMMANDER, DESI HOUSTON 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 11/06/2011 BAIG BOMB SQUAD COMMANDER, DESI HOUSTON 496 CHRONIC OBSTRUCTIVE PULMONARY DISEASE 11/06/2011 BAIG BOMB SQUAD COMMANDER, DESI HOUSTON 683 ACUTE LYMPHADENITIS 11/06/2011 MARC BOMB SQUAD COMMANDER, AUDIE R 246.9 UNSPECIFIED DISORDER OF THYROID 11/06/2011 MARC BOMB SQUAD COMMANDER, AUDIE R 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 11/06/2011 TARI BOMB SQUAD COMMANDER, AUDIE R 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 11/06/2011 MARC BOMB SQUAD COMMANDER, AUDIE R 496 CHRONIC OBSTRUCTIVE PULMONARY DISEASE 11/06/2011 MARC BOMB SQUAD COMMANDER, AUDIE R 683 ACUTE LYMPHADENITIS 11/06/2011 JIMMY WOODSN, SHAHNAZ S 246.9 UNSPECIFIED DISORDER OF THYROID 11/06/2011 JIMMY BOMB SQUAD COMMANDER, SHAHNAZ S 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 11/06/2011 JIMMY BOMB SQUAD COMMANDER, SHAHNAZ S 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 11/06/2011 JIMMY BOMB SQUAD COMMANDER, SHAHNAZ S 496 CHRONIC OBSTRUCTIVE PULMONARY DISEASE 11/06/2011 CECILE MARQUEZ APRNNDA S 683 ACUTE LYMPHADENITIS 11/06/2011 MAX DHILLON APRN T 246.9 UNSPECIFIED DISORDER OF THYROID 11/06/2011 MAX DHILLON APRN T 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 11/06/2011 MAX DHILLON APRN T 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 11/06/2011 JACQUIE BURGOS MAX T 496 CHRONIC OBSTRUCTIVE PULMONARY DISEASE 11/06/2011 JACQUIE BURGOS MAX T 683 ACUTE LYMPHADENITIS 11/06/2011 MAX DHILLON APRN T 246.9 UNSPECIFIED DISORDER OF THYROID 11/06/2011 MAX DHILLON APRN T 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 11/06/2011 MAX DHILLON APRN T 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 11/06/2011 [...] ROLDAN SHARIF N 683 ACUTE LYMPHADENITIS 11/06/2011 GWEN JOHNSON [...] BURGOS DESI HOUSTON 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 11/06/2011 DESI BAIG APRN [...] JOHNSON MDY N 683 ACUTE LYMPHADENITIS 11/06/2011 SHARIF JOHNSON MD N 246.9 UNSPECIFIED DISORDER OF THYROID 11/06/2011 SHARIF JOHNSON MD N 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 11/06/2011 ELIZABETH ROLDAN SHARIF N 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 11/06/2011 GWEN JOHNSON MDY N 496 CHRONIC OBSTRUCTIVE PULMONARY DISEASE 11/06/2011 ELIZABETH ROLDAN SHARIF N 683 ACUTE LYMPHADENITIS 11/06/2011 JOVANNI BURGOS [...] N 683 ACUTE LYMPHADENITIS 11/06/2011 MASSIEL VEGA 246.9 UNSPECIFIED DISORDER OF THYROID 11/06/2011 MASSIEL VEGA M 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9 UNSPECIFIED DISORDER OF THYROID 11/06/2011 MARKO BUTLER DOEN F 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 11/06/2011 CARRIE VILLALOBOS [...] MD 300.00 AN ANXIETY UNSPEC 04/18/2012 JOVANNI BURGOSDESI 300.00 AN ANXIETY UNSPEC 04/18/2012 SHARIF JOHNSON [...] JOHNSON MD 300.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 04/30/2012 BAIGDESI LARES APRN 300.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 04/30/2012 SHARIF [...] JOHNSON MD 307.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 05/29/2012 SHARFI JOHNSON MD N 307.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 05/29/2012 SHARIF JOHNSON MD 307.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 05/29/2012 SHARIF JOHNSON MD 307.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 05/29/2012 DESI BAIG APRN 307.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 05/29/2012 SHARIF JOHNSON MD 307.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 05/29/2012 SHARIF JOHNSON MD 307.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 05/29/2012 JOVANNI WOODSNDESI 307.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 05/29/2012 ELIZABETH ROLDAN, [...] BAIG APRN V58.69 MEDICATION HIGH RISK 06/05/2012 JOVANNI WOODSTiara DESI CONRAD 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 06/05/2012 JOVANNI BURGOS DESI CONRAD V58.69 MEDICATION HIGH RISK 06/05/2012 TARI AUBREY AUDIE R 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 06/05/2012 TARI WOODSTiara AUDIE R V58.69 MEDICATION HIGH RISK 06/05/2012 JIMMYSTEF BURGOS SHAHNAZ S 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 06/05/2012 JIMMY BURGOS SHAHNAZ S V58.69 MEDICATION HIGH RISK 06/05/2012 MAX DHILLON APRN 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 06/05/2012 MAX DHILLON APRN V58.69 MEDICATION HIGH RISK 06/05/2012 MAX DHILLON APRN 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 06/05/2012 MAX DHILLON APRN V58.69 MEDICATION HIGH RISK 06/05/2012 HAZEL MIKE VILLALOBOS K 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 06/05/2012 CHANDA HAZEL DOA K V58.69 MEDICATION HIGH RISK 06/05/2012 CAROLINE [...] SHARIF N V58.69 MEDICATION HIGH RISK 06/05/2012 ELIZABETH ROLDAN, SHARIF N 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 06/05/2012 SHARIF JOHNSON MD N V58.69 MEDICATION HIGH RISK 06/05/2012 JOVANNI BURGOS DESI CONRAD 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 06/05/2012 BAIGLUDA BURGOS, DESI CONRAD V58.69 MEDICATION HIGH RISK 06/05/2012 SHARIF JOHNSON MD N 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 06/05/2012 SHARIF JOHNSON MD N V58.69 MEDICATION HIGH RISK 06/05/2012 SHARIF JOHNSON MD N 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 06/05/2012 SHARIF JOHNSON MD N V58.69 MEDICATION HIGH RISK 06/05/2012 BAIGLUDA BURGOS [...] DO K V58.69 MEDICATION HIGH RISK 06/05/2012 SHARIF [...] MEDICATION HIGH RISK 06/05/2012 ELIZABETH ROLDAN, SHARIF Menjivar 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 06/05/2012 [...] R 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) 06/10/2012 SHAHNAZ MARQUEZ APRN S 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) 06/10/2012 [...] PANIC DIS W/O AGORA 06/18/2012 DESI BAIG APRNH 300.01 AN PANIC DIS W/O AGORA 06/18/2012 AUDIE MARC APRN R 300.01 AN PANIC DIS W/O AGORA 06/18/2012 SHAHNAZ MARQUEZ APRN S 300.01 AN PANIC DIS W/O AGORA 06/18/2012 MAX DHILLON APRN 300.01 AN PANIC DIS W/O AGORA 06/18/2012 MXA DHILLON APRN 300.01 AN PANIC DIS W/O [...] MD 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 06/27/2012 DESI BAIG APRN 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 06/27/2012 BAIGDESI HUGO APRN 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 06/27/2012 AUDIE MARC APRN 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 06/27/2012 SHAHNAZ MARQUEZ APRN 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 06/27/2012 MAX [...] MD 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 06/27/2012 DESI [...] Vaccines Prophylactic Need Against Influenza 09/11/2012 JOVANNI WOODSNDESIH V04.81 Vaccines Prophylactic Need Against Influenza 09/11/2012 [...] 10/24/2012 CAROLINE MENDOZA MD 785.1 palpitations 10/24/2012 WERDER DO, MARIA DE [...] ESSENTIAL HYPERTENSION BENIGN 10/24/2012 785.1 palpitations 10/24/2012 WERDER DO, MARIA DE [...] CAROLINE MENDOZA MD 785.1 palpitations 10/24/2012 JOVANNI WOODSNDESI 401.1 ESSENTIAL HYPERTENSION BENIGN 10/24/2012 JOVANNI WOODSN, DESI CONRAD 785.1 palpitations 10/24/2012 JOVANNI WOODSN, DESI CONRAD 401.1 ESSENTIAL HYPERTENSION BENIGN 10/24/2012 JOVANNI WOODSN, DESI CONRAD 785.1 palpitations 10/24/2012 BELÉN MARC APRNRICIA R 401.1 ESSENTIAL HYPERTENSION BENIGN 10/24/2012 STEPHEN MARC APRNIA R 785.1 palpitations 10/24/2012 FRANCISCO MARQUEZ APRNA S 401.1 ESSENTIAL HYPERTENSION BENIGN 10/24/2012 SHAHNAZ [...] MASSIEL VEGA M 785.1 palpitations 10/24/2012 HAZEL DO, MIKE [...] ELIZABETH ROLDAN, SHARIF N 785.1 palpitations 10/24/2012 SHARIF JOHNSON [...] 12/18/2012 CAROLINE MENDOZA MD 790.29 HYPERGLYCEMIA 12/18/2012 REJI ROLDAN, CAROLINE Magaña 272.4 HYPERLIPIDEMIA 12/18/2012 CAROLINE MENDOZA MD 790.29 HYPERGLYCEMIA 12/18/2012 JOVANNI BOMB SQUAD COMMANDER, DESI CONRAD 272.4 HYPERLIPIDEMIA 12/18/2012 BAIG BOMB SQUAD COMMANDER, DESI CONRAD 790.29 HYPERGLYCEMIA 12/18/2012 JOVANNI BOMB SQUAD COMMANDER, DESI CONRAD 272.4 HYPERLIPIDEMIA 12/18/2012 JOVANNI BOMB SQUAD COMMANDER, DESI CONRAD 790.29 HYPERGLYCEMIA 12/18/2012 MARC BOMB SQUAD COMMANDER, AUDIE R 272.4 HYPERLIPIDEMIA 12/18/2012 MARC BOMB SQUAD COMMANDER, AUDIE R 790.29 HYPERGLYCEMIA 12/18/2012 JIMMY BOMB SQUAD COMMANDER, SHAHNAZ S 272.4 HYPERLIPIDEMIA 12/18/2012 JIMMY BOMB SQUAD COMMANDER, SHAHNAZ S 790.29 HYPERGLYCEMIA 12/18/2012 JACQUIE BOMB SQUAD COMMANDER, MAX T 272.4 HYPERLIPIDEMIA 12/18/2012 JACQUIE BOMB SQUAD COMMANDER, MAX T 790.29 HYPERGLYCEMIA 12/18/2012 JACQUIE BOMB SQUAD COMMANDER, MAX T 272.4 HYPERLIPIDEMIA 12/18/2012 JACQUIE BOMB SQUAD COMMANDER, MAX T 790.29 HYPERGLYCEMIA 12/18/2012 HAZEL DO, [...] SHARIF JOHNSON MD N 272.4 HYPERLIPIDEMIA 12/18/2012 GWEN JOHNSON MDY N 790.29 HYPERGLYCEMIA 12/18/2012 JOVANNI BURGOS DESI SINGHH 272.4 HYPERLIPIDEMIA 12/18/2012 JOVANNI BURGOS DESI SINGHH 790.29 HYPERGLYCEMIA 12/18/2012 SHARIF JOHNSON MD N 272.4 HYPERLIPIDEMIA 12/18/2012 SHARIF JOHNSON MD N 790.29 HYPERGLYCEMIA 12/18/2012 SHARIF JOHNSON MD N 272.4 HYPERLIPIDEMIA 12/18/2012 SHARIF JOHNSON MD N 790.29 HYPERGLYCEMIA 12/18/2012 JANINA REHAB MANAGER, MASSIEL M 272.4 HYPERLIPIDEMIA 12/18/2012 JANINA REHAB MANAGER, MASSIEL M 790.29 HYPERGLYCEMIA 12/18/2012 HAZEL DO, MIKE K 272.4 HYPERLIPIDEMIA 12/18/2012 HAZEL DO, MIKE K 790.29 HYPERGLYCEMIA 12/18/2012 SHARIF JOHNSON [...] MUSCLE 05/06/2013 CARRIE VILLALOBOS MARIA DE JESUS Good 728.85 SPASM OF MUSCLE 05/06/2013 CAROLINE MENDOZA MD 728.85 SPASM OF MUSCLE 05/06/2013 CAROLINE MENDOZA MD 728.85 SPASM OF MUSCLE 05/06/2013 CAROLINE MENDOZA MD 728.85 SPASM OF MUSCLE 05/06/2013 DESI BAGI APRN 728.85 SPASM OF MUSCLE 05/06/2013 DESI [...] CAROLINE MENDOZA MD 338.29 CHRONIC PAIN 06/05/2013 DESI BAIG APRN 338.29 CHRONIC PAIN 06/05/2013 DESI BAIG APRN 338.29 CHRONIC PAIN 06/05/2013 AUDIE MARC APRN R 338.29 CHRONIC PAIN 06/05/2013 SHAHNAZ MARQUEZ APRN [...] MD, SHARIF N 338.29 CHRONIC PAIN 06/05/2013 ELIZABETH ROLDAN, SHARIF N 338.29 CHRONIC PAIN 06/05/2013 ELIZABETH ROLDAN, SHARIF N 338.29 CHRONIC PAIN 06/05/2013 JOVANNI BURGOS DESI SINGHH 338.29 CHRONIC PAIN 06/05/2013 SHARIF JOHNSON MD N 338.29 CHRONIC PAIN 06/05/2013 ELIZABETH ROLDAN, SHARIF Menjivar 338.29 CHRONIC PAIN 06/05/2013 JOVANNI BURGOS DESI SINGHH 338.29 CHRONIC PAIN 06/05/2013 ELIZABETH ROLDAN, SHARIF N 338.29 CHRONIC PAIN 06/05/2013 ELIZABETH ROLDAN, SHARIF Menjivar 338.29 CHRONIC PAIN 06/05/2013 MASSIEL VEGA 338.29 CHRONIC PAIN 06/05/2013 MIKE HAZEL DO 338.29 CHRONIC PAIN 06/05/2013 ELIZABETH ROLDAN, SHARIF Menjivar 338.29 CHRONIC PAIN 06/05/2013 SHANIQUE VEGA MD 338.29 CHRONIC PAIN 06/05/2013 ELIZABETH ROLDAN, SHARIF Menjivar 338.29 CHRONIC PAIN 06/05/2013 SHARIF JOHNSON MD [...] DHILLON APRN 491.21 BRONCHITIS AECB 07/01/2013 JACQUIE BURGOS MAX Powell 491.21 BRONCHITIS AECB 07/01/2013 HAZEL , MIKE K 491.21 BRONCHITIS AECB 07/01/2013 CAROLINE [...] ROLDAN, SHARIF Menjivar 491.21 BRONCHITIS AECB 07/01/2013 MASSIEL VEGA 491.21 BRONCHITIS AECB 07/01/2013 MIKE HAZEL DO K 491.21 BRONCHITIS AECB 07/01/2013 SHARIF JOHNSON MD [...] MD Ot 311 DEPRESSIVE DISORDER NEC 07/09/2013 SHANIQUE VEGA MD Ot 338.29 OTHER CHRONIC PAIN 07/09/2013 SHANIQUE [...] BURGOS DESI HOUSTON V05.8 ZOSTAVAX DX 09/22/2013 JOVANNI BURGOS DESI [...] JOHNSON MD V05.8 ZOSTAVAX DX 09/22/2013 JANINA REHAB MANAGER, MASSIEL M 271.3 GLUCOSE INTOLERANCE 09/22/2013 JANINA CANDIE, MASSIEL Magaña V05.8 ZOSTAVAX DX 09/22/2013 HAZEL DO, MIKE [...] HAZEL DOA K 786.07 WHEEZING 11/09/2013 HAZEL DOCHANDAA K 786.2 COUGH 11/09/2013 MIKE HAZEL DO V65.42 COUNSELING - SMOKING CESSATION 11/09/2013 CAROLINE [...] N V65.42 COUNSELING - SMOKING CESSATION 11/09/2013 GWEN JOHNSON MDY N 786.07 WHEEZING 11/09/2013 SHARIF JOHNSON MD N 786.2 COUGH 11/09/2013 SHARIF JOHNSON MD N V65.42 COUNSELING - SMOKING CESSATION 11/09/2013 SHARIF JOHNSON MD N 786.07 WHEEZING 11/09/2013 SHARIF JOHNSON MD N 786.2 COUGH 11/09/2013 SHARIF JOHNSON MD N V65.42 COUNSELING - SMOKING CESSATION 11/09/2013 GWEN JOHNSON MDY N 786.07 WHEEZING 11/09/2013 GWEN JOHNSON MDY N 786.2 COUGH 11/09/2013 ELIZABETH ROLDAN SHARIF N V65.42 COUNSELING - SMOKING CESSATION 11/09/2013 [...] BURGOS, DESI CONRAD 786.07 WHEEZING 11/09/2013 JOVANNI WOODSN, DESI CONRAD 786.2 COUGH 11/09/2013 BAIG AUBREY, DESI CONRAD V65.42 COUNSELING - SMOKING CESSATION [...] Menjivar 786.07 WHEEZING 11/09/2013 ELIZABETH ROLDAN, SHARIF N 786.2 COUGH 11/09/2013 ELIZABETH ROLDAN, SHARIF Menjivar V65.42 COUNSELING - SMOKING CESSATION 11/09/2013 SHANIQUE VEGA MD 786.07 WHEEZING 11/09/2013 SHANIQUE VEGA MD 786.2 COUGH 11/09/2013 SHANIQUE VEGA MD V65.42 COUNSELING - SMOKING CESSATION 11/12/2013 JIMMY BOMB SQUAD COMMANDER, SHAHNAZ S 486 PNEUMONIA UNSPECIFIED 11/12/2013 JACQUIE BOMB SQUAD COMMANDER, MAX T 486 PNEUMONIA UNSPECIFIED 11/12/2013 JACQUIE BOMB SQUAD COMMANDER, MAX T 486 PNEUMONIA UNSPECIFIED 11/12/2013 ILIR VILLALOBOS, MIKE K 486 PNEUMONIA UNSPECIFIED 11/12/2013 REJI ROLDAN, CAROLINE M 486 PNEUMONIA UNSPECIFIED 11/12/2013 CAROLINE MENDOZA MD M 486 PNEUMONIA UNSPECIFIED 11/12/2013 ELIZABETH ROLDAN, [...] ROLDAN, SHARIF N 486 PNEUMONIA UNSPECIFIED 11/12/2013 SHARIF JOHNSON MD 486 PNEUMONIA UNSPECIFIED 11/12/2013 SHANIQUE VEGA MD 486 PNEUMONIA UNSPECIFIED 11/14/2013 SHARIF JOHNSON MD Ot 272.4 HYPERLIPIDEMIA NEC/NOS 11/14/2013 SHARIF JOHNSON MD Ot 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 11/14/2013 SHARIF JOHNSON MD Ot 401.9 HYPERTENSION NOS 11/14/2013 SHARIF JOHNSON [...] SHARIF JOHNSON MD 466.0 BRONCHITIS, ACUTE 12/11/2013 GARY ROLDAN, SHANIQUE 466.0 BRONCHITIS, ACUTE 12/15/2013 MAX DHILLON [...] JOHNSON MD N 719.07 EDEMA FOOT 12/15/2013 ELIZABETH MD, SHARIF N 785.2 MURMURS, UNDIAGNOSED CARDIAC 12/15/2013 SHARIF JOHNSON MD N 786.05 SHORTNESS OF BREATH 12/15/2013 SHARIF JOHNSON MD N 719.07 EDEMA FOOT 12/15/2013 SHARIF JOHNSON MD N 785.2 MURMURS, UNDIAGNOSED CARDIAC 12/15/2013 SHARIF JOHNSON MD N 786.05 SHORTNESS OF BREATH 12/15/2013 JOVANNI BURGOS, DESI CONRAD 719.07 EDEMA FOOT 12/15/2013 JOVANNI BURGOS, DESI CONRAD 785.2 MURMURS, UNDIAGNOSED CARDIAC 12/15/2013 JOVANNI BURGOS, DESI SINGHH 786.05 SHORTNESS OF BREATH 12/15/2013 [...] 719.07 EDEMA FOOT 12/15/2013 JOVANNI BURGOS, DESI SINGHH 785.2 MURMURS, UNDIAGNOSED CARDIAC 12/15/2013 JOVANNI BURGOS, DESI SINGHH 786.05 SHORTNESS OF BREATH 12/15/2013 SHARIF JOHNSON MD N 719.07 EDEMA FOOT 12/15/2013 SHARFI JOHNSON MD N 785.2 MURMURS, UNDIAGNOSED CARDIAC [...] VEGA MD 785.2 MURMURS, UNDIAGNOSED CARDIAC 12/15/2013 SHANQIUE VEGA MD 786.05 SHORTNESS OF BREATH 12/15/2013 [...] 12/30/2013 SHARIF JOHNSON MD 782.3 Edema 12/30/2013 ELIZABETH ROLDAN, SHARIF N 782.3 Edema 12/30/2013 JOVANNI BURGOSDESI 782.3 Edema 12/30/2013 ELIZABETH ROLDAN, SHARIF N 782.3 Edema 12/30/2013 ELIZABETH ROLDAN, SHARIF N 782.3 Edema 12/30/2013 JOVANNI BURGOSDESI 782.3 Edema 12/30/2013 ELIZABETH ROLDAN, SHARIF N 782.3 Edema 12/30/2013 ELIZABETH ROLDAN, SHARIF N 782.3 Edema 12/30/2013 MASSIEL VEGA 782.3 Edema 12/30/2013 ILIR MIKE 782.3 Edema 12/30/2013 ELIZABETH ROLDAN, SHARIF N 782.3 Edema 12/30/2013 SHANIQUE VEGA MD 782.3 Edema 12/30/2013 ELIZABETH ROLDAN, SHARIF N 782.3 Edema 12/30/2013 ELIZABETH ROLDAN, SHARIF Menjivar 782.3 Edema 12/30/2013 SHANIQUE VEGA MD 782.3 Edema 05/24/2014 DIANNA MACHADO MD Ot 278.00 OBESITY, NOS 05/24/2014 DIANNA MACHADO MD Ot 715.95 OSTEOARTHROS NOS-PELVIS 05/24/2014 IDANNA MACHADO MD Ot 721.3 LUMBOSACRAL SPONDYLOSIS 05/24/2014 [...] NOS 06/28/2014 DIANNA MACHADO MD Ot V58.69 OT MED,LT,CURRENT USE 06/28/2014 DIANNA MACHADO MD Ot [...] MASS OR LUMP 09/15/2014 MIKE HAZEL DO 414.00 CORONARY ATHEROSCLEROSIS OF UNSPECIFIED TYPE OF VESSEL KASHIA OR GRAFT 09/15/2014 MIKE HAZEL DO 782.2 LOCALIZED SUPERFICIAL SWELLING MASS OR LUMP [...] 11/02/2014 MIKE HAZEL DO Ot 300.01 11/02/2014 MIKE HAZEL DO Ot 311 11/02/2014 HAZEL DO, MIKE K Ot 414.01 11/02/2014 HAZEL DO, MIKE Dionne Ot 491.20 11/02/2014 HAZEL DO, MIKE K Ot 599.0 11/02/2014 HAZEL DO, MIKE K Ot 715.35 11/02/2014 HAZEL DO, MIKE K Ot 780.97 11/02/2014 HAZEL DO, MIKE K Ot 781.2 11/02/2014 HAZEL DO, MIKE K Ot 969.4 11/02/2014 HAZEL DO, MIKE K Ot E853.2 11/02/2014 HAZEL DO, MIKE K Ot V15.88 11/02/2014 ILIR VILLALOBOS, MIKE Dionne Ot V45.82 11/05/2014 SHANIQUE VEGA MD Ot 338.29 OTHER CHRONIC PAIN 11/05/2014 SHANIQUE VEGA MD Ot 719.41 JOINT PAIN-SHLDER 11/05/2014 SHANIQUE VEGA MD Ot 780.79 OTH MALAISE FATIGUE 11/05/2014 SHANIQUE VEGA MD Ot V13.02 PERSONAL HISTORY, URINARY (TRACT) INFECT 11/11/2014 JAJA ROLDAN, EMANUEL Garcia Ot 787.02 NAUSEA ALONE 11/26/2014 SHARIF JOHNSON [...] 794.31 ABNORMAL EKG 12/28/2014 BISHNU ROLDAN FACC, CHELLE FACP CCDS Ot 414.01 CORONARY ATHEROSCLEROSIS OF [...] ROLDAN FACC, ALI FACP CCDS Ot V58.69 OTH MED,LT,CURRENT USE 02/07/2015 SASHA ROLDAN, MYRNA E [...] ROLDAN, MYRNA E Ot 715.31 02/08/2015 SASHA RODLAN, MYRNA E Ot 715.35 02/08/2015 SASHA ROLDAN, [...] MYRNA E Ot 401.9 02/09/2015 SASHA ROLDAN, MYNRA E Ot 414.01 02/09/2015 SASHA ROLDAN, MYRNA E Ot 427.31 02/09/2015 SASHA ROLDAN, MYNRA E Ot 496 02/09/2015 SASHA ROLDAN, MYRNA [...] ROLDAN, MYRNA E Ot 530.81 02/12/2015 SASHA ROLDNA, MYRNA E Ot 715.31 02/12/2015 SASHA ROLDAN, [...] SASHA ROLDAN, MYRNA E Ot 496 02/13/2015 SAHSA ROLDAN, MYRNA E Ot 530.81 02/13/2015 SASHA [...] CAROLINE MENDOZA MD Ot 724.2 02/17/2015 CAROLINE MEDNOZA MD Ot 724.4 02/17/2015 MAX DHILLON BRIDGE SAW OPERATOR Ot 401.1 02/17/2015 MAX DHILLON BRIDGE SAW OPERATOR Ot 424.1 02/17/2015 MAX DHILLON BRIDGE SAW OPERATOR Ot 785.2 02/17/2015 MAX DHILLON BRIDGE SAW OPERATOR Ot 786.05 02/17/2015 ANDRE HERNANDEZ DO Ot 715.91 02/17/2015 ANDRE HERNANDEZ DO Ot 727.61 02/17/2015 DIANNA MACHADO MD Ot 278.00 02/17/2015 DIANNA MACHADO MD Ot 721.3 02/17/2015 DIANNA MACHADO MD Ot 724.6 02/17/2015 DIANNA MACHADO MD Ot 729.1 02/17/2015 DIANNA MACHADO MD Ot V58.69 02/17/2015 DIANNA MACHADO MD Ot V85.35 02/17/2015 DIANNA MACHADO MD Ot 278.00 02/17/2015 JEANNETTE ROLDAN, DIANNA J Ot 715.95 02/17/2015 JEANNETTE ROLDAN, DIANNA Adhikari Ot 721.3 02/17/2015 DIANNA MACHADO MD Ot 729.1 02/17/2015 DIANNA MACHADO MD Ot V58.69 02/17/2015 JEANNETTE ROLDAN, DIANNA Adhikari [...] ROLDAN, MYRNA E Ot V45.81 02/21/2015 SASHA ORLDAN, MYRNA E Ot V46.2 02/21/2015 SASHA ROLDAN, [...] ROLDAN, MYRNA E Ot V15.82 02/21/2015 SASHA ORLDAN, MYRNA E Ot V45.81 02/21/2015 SASHA ROLDAN, [...] ROLDAN, MYRNA E Ot 401.9 02/24/2015 SASHA ROLDAN [...] ARTERY OCCLUSION W O CEREBRAL IN 02/24/2015 SASHA ROLDAN MYRNA E Ot 433.30 MULT BILTRAL ARTERY OCCLUSION WO CEREBRA 02/24/2015 SASHA ROLDAN MYRNA E Ot 496 CHR AIRWAY OBSTRUCT NEC 02/24/2015 SASHA ROLDAN MYRNA E Ot 511.9 PLEURAL EFFUSION NOS 02/24/2015 JENNA BAEZ MDIC E Ot 530.81 ESOPHAGEAL REFLUX 02/24/2015 SASHA ROLDAN MYRNA E Ot 682.2 CELLULITIS OF TRUNK 02/24/2015 SASHA ROLDAN, MYRNA Mc Ot 715.31 LOC OSTEOARTH NOS-SHLDER 02/24/2015 MYRNA BAEZ MD Ot 715.35 LOC OSTEOARTH NOS-PELVIS 02/24/2015 MYRNA BAEZ MD Ot 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 02/24/2015 MYRNA BAEZ MD Ot 733.00 OSTEOPOROSIS NOS 02/24/2015 MYRNA BAEZ MD Ot 786.09 RESPIRATORY ABNORM NEC 02/24/2015 MYRNA BAEZ MD Ot 788.43 NOCTURIA 02/24/2015 MYRNA BAEZ MD Ot 998.59 OTH POSTOPER INFECTION 02/24/2015 MYRNA BAEZ MD Ot V15.82 HISTORY OF TOBACCO USE 02/24/2015 MYRNA BAEZ MD Ot V45.81 AORTOCORONARY BYPASS 02/24/2015 MYRNA BAEZ MD Ot V46.2 SUPPLEMENTAL OXYGEN 02/24/2015 MYRNA BAEZ MD Ot V57.89 REHABILITATION PROC NEC 02/25/2015 JUAREZ [...] MAX DHILLON Ot 401.1 02/27/2015 MAX DHILLON BRIDGE SAW OPERATOR Ot 424.1 02/27/2015 MAX DHILLON BRIDGE SAW OPERATOR Ot 785.2 02/27/2015 MAX DHILLON BRIDGE SAW OPERATOR Ot 786.05 02/27/2015 MARY VILLALOBOSANDRE Ot 715.91 [...] 02/28/2015 SHANIQUE VEGA MD Ot 298.9 02/28/2015 SHANIQUE VEGA MD Ot 599.0 02/28/2015 GARY ROLDAN, SHANIQUE F [...] ROLDAN, SHARIF N Ot 799.02 03/11/2015 ELIZABETH RLODAN, SHARIF N Ot 920 03/11/2015 ELIZABETH ROLDAN, [...] SHARIF N Ot 440.1 03/14/2015 ELIZABETH ROLDAN, SHAIRF N Ot 440.20 03/14/2015 ELIZABETH ROLDAN, SHARIF [...] JOHNSON MD Ot 276.8 HYPOPOTASSEMIA 03/15/2015 SHARIF JONHSON MD Ot 285.9 ANEMIA NOS 03/15/2015 SHARIF [...] 12/07/2015 CAROLINE MENDOZA MD Ot 338.29 12/07/2015 REJI ROLDAN, CAROLINE Magaña Ot 722.6 12/07/2015 REJI ROLDAN, CAROLINE Magaña Ot 724.2 12/07/2015 CAROLINE MENDOZA MD Ot 724.4 12/07/2015 MAX DHILLON BRIDGE SAW OPERATOR Ot 401.1 12/07/2015 MAX DHILLON BRIDGE SAW OPERATOR Ot 424.1 12/07/2015 MAX DHILLON BRIDGE SAW OPERATOR Ot 785.2 12/07/2015 MAX DHILLON BRIDGE SAW OPERATOR Ot 786.05 12/07/2015 ANDRE HERNANDEZ DO Ot 715.91 12/07/2015 ANDRE HERNANDEZ DO Ot 727.61 12/07/2015 JEANNETTE ROLDAN, DIANNA Adhikari Ot 278.00 12/07/2015 JEANNETTE ROLDAN, DIANNA Adhikari Ot 721.3 12/07/2015 DIANNA MACHADO MD Ot 724.6 12/07/2015 DIANNA MACHADO MD Ot 729.1 12/07/2015 DIANNA MACHADO MD Ot V58.69 12/07/2015 DIANNA MACHADO MD Ot V85.35 12/07/2015 JEANNETTE ROLDAN, DIANNA Adhikari Ot 278.00 12/07/2015 JEANNETTE ROLDAN, DIANNA Adhikari Ot 715.95 12/07/2015 DIANNA MACHADO MD Ot 721.3 12/07/2015 DIANNA MACHADO MD Ot 729.1 12/07/2015 DIANNA MACHADO MD Ot V58.69 12/07/2015 DIANNA MACHADO MD Ot V85.33 12/07/2015 GARY ROLDAN, SHANIQUE Funk Ot 791.9 12/07/2015 TARA SOTO MD Ot M16.11 UNILATERAL PRIMARY OSTEOARTHRITIS, RIGHT 05/16/2016 PRUDENCE SHAW MD Ot E11.9 TYPE 2 DIABETES MELLITUS WITHOUT COMPLIC 05/16/2016 PRUDENCE SHAW MD Ot 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 05/16/2016 PRUDENCE SHAW MD Ot I10 ESSENTIAL (PRIMARY) HYPERTENSION 05/16/2016 PRUDENCE SHAW MD Ot I25.10 ATHSCL HEART DISEASE OF [place] CORONARY 05/16/2016 PRUDENCE SHAW MD Ot I71.4 ABDOMINAL AORTIC ANEURYSM, WITHOUT RUPTU 05/16/2016 VALERIA ROLDAN, PRUDENCE Garcia Ot J44.9 CHRONIC OBSTRUCTIVE PULMONARY DISEASE, U [...] INCONTINENCE 11/28/2016 LUL NORWOOD MD Ot Z79.84 SUPERINTENDENT MARINE OIL TERMINAL (CURRENT) USE OF ORAL HYPOGLYC 11/29/2016 LUL NORWOOD MD Ot E11.9 TYPE 2 DIABETES MELLITUS WITHOUT COMPLIC 11/29/2016 LUL NORWOOD MD, Ot N32.81 OVERACTIVE BLADDER 11/29/2016 LUL NORWOOD MD Ot 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 (ISD) 11/29/2016 CUCO ROLDAN, LUL Garcia Ot 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 11/29/2016 CUCO ROLDAN, LUL Garcia Ot Z79.84 SUPERINTENDENT MARINE OIL TERMINAL (CURRENT) USE OF ORAL HYPOGLYC 12/03/2016 CUCO ROLDAN, LUL Garcia Ot E11.9 TYPE 2 DIABETES MELLITUS WITHOUT COMPLIC 12/03/2016 CUCO ROLDAN, LUL Garcia Ot N32.81 OVERACTIVE BLADDER 12/03/2016 LUL NORWOOD MD Ot 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 (ISD) 12/03/2016 LUL NORWOOD MD, Ot 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 12/03/2016 LUL NORWOOD MD, Ot Z79.84 SUPERINTENDENT MARINE OIL TERMINAL (CURRENT) USE OF ORAL HYPOGLYC 02/06/2017 LUL NORWOOD MD Ot N32.81 OVERACTIVE BLADDER 02/06/2017 LUL NORWOOD MD Ot 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 (ISD) 02/06/2017 LUL NORWOOD MD Ot 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 02/06/2017 CUCO ROLDAN, LUL Garcia Ot Z01.818 ENCOUNTER [...] Ot 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 02/13/2017 LUL NORWOOD MD, Ot N32.81 OVERACTIVE BLADDER 02/13/2017 LUL NORWOOD MD, Ot 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 (ISD) 02/13/2017 LUL NORWOOD MD Ot 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 02/18/2017 LUL NORWOOD MD Ot N32.81 OVERACTIVE BLADDER 02/18/2017 LUL NORWOOD MD Ot 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 (ISD) 02/18/2017 LUL NORWOOD MD Ot 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 10/08/2017 BISHNU HDEZC, ALI FACP CCDS Ot E78.5 [...] Ot I48.0 PAROXYSMAL ATRIAL FIBRILLATION 10/15/2017 BISHNU ROLDAN FACC, ALI FACP CCDS Ot I48.91 UNSPECIFIED [...] VASCULAR DISEASE, UNSPECIFIED 10/15/2017 CHELLE GOETZ MD, FACCP CCDS Ot J44.9 CHRONIC OBSTRUCTIVE PULMONARY DISEASE, U 10/15/2017 CHELLE GOETZ MD, FACC FACP CCDS Ot Z79.899 OTHER RESIDENTIAL (CURRENT) DRUG THERAPY 10/15/2017 CHELLE GOETZ MD, FACC FACP CCDS Ot Z87.891 PERSONAL HISTORY OF NICOTINE DEPENDENCE 10/15/2017 CHELLE GOETZ MD, FACC FACP CCDS Ot Z88.1 ALLERGY STATUS TO OTHER ANTIBIOTIC AGENT 10/15/2017 CHELLE GOETZ MD, FACC FACP CCDS Ot Z88.2 ALLERGY STATUS TO SULFONAMIDES STATUS 10/15/2017 CHELLE GOETZ MD, FACC FACP CCDS Ot Z88.[address] [facility] DRUG/MEDS/BIOL SUB 10/15/2017 CHELLE GOETZ MD, FACC FACP CCDS Ot Z91.19 PATIENT'S NONCOMPLIANCE W [facility] MEDICAL TR 10/15/2017 CHELLE GOETZ MD, FACC [...] OF [place] CORONARY 10/26/2017 CHELLE GOETZ MD, FACCP CCDS Ot I48.0 PAROXYSMAL ATRIAL FIBRILLATION 10/26/2017 BISHNU MD FACC, ALI FACP CCDS Ot I71.4 ABDOMINAL [...] DISEASE OF [place] CORONARY 10/29/2017 BISHNU ROLDAN [facility], ALI FACP CCDS Ot I48.0 PAROXYSMAL ATRIAL FIBRILLATION 10/29/2017 [facility], ALI FACP CCDS Ot I65.29 OCCLUSION AND STENOSIS OF UNSPECIFIED CA 10/29/2017 BISHNU [facility], ALI FACP CCDS Ot R06.02 SHORTNESS OF BREATH 10/29/2017 BISHNU ROLDAN FACC, ALI FACP CCDS Ot E78.5 HYPERLIPIDEMIA, UNSPECIFIED 10/29/2017 [facility], ALI FACP CCDS Ot I10 ESSENTIAL (PRIMARY) HYPERTENSION 10/29/2017 BISHNU ROLDAN [facility], ALI FACP CCDS Ot I25.10 ATHSCL HEART [...] I10 ESSENTIAL (PRIMARY) HYPERTENSION 11/05/2017 [facility], ALI FACP CCDS Ot I25.10 ATHSCL HEART [...] HEART DISEASE OF [place] CORONARY 11/07/2017 BISHNU ROLDAN FACC, ALI FACP [...] E78.4 OTHER HYPERLIPIDEMIA 11/15/2017 BISHNU ROLDAN FACC, CHELLE FACP CCDS Ot I10 ESSENTIAL (PRIMARY) HYPERTENSION 11/15/2017 BISHNU ROLDAN FACC, CHELLE FACP CCDS Ot I25.10 ATHSCL HEART DISEASE OF [place] CORONARY 11/15/2017 BISHNU ROLDAN FACAndrea, CHELLE FACP CCDS Ot I48.0 PAROXYSMAL ATRIAL [...] FOR OTHER PREPROCEDURAL EXAMIN 11/26/2017 SATHISH ABAD BRIDGE SAW OPERATOR Ot 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 11/26/2017 SATHISH ABAD BRIDGE SAW OPERATOR Ot 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 11/26/2017 SATHISH ABAD BRIDGE SAW OPERATOR Ot I71.4 ABDOMINAL AORTIC ANEURYSM, WITHOUT RUPTU 11/26/2017 SATHISH ABAD BRIDGE SAW OPERATOR Ot K42.9 UMBILICAL HERNIA WITHOUT OBSTRUCTION OR 11/26/2017 SATHISH ABAD BRIDGE SAW OPERATOR Ot K76.89 OTHER SPECIFIED DISEASES OF LIVER 11/26/2017 SATHISH ABAD BRIDGE SAW OPERATOR Ot N28.1 CYST OF KIDNEY, ACQUIRED 11/26/2017 LUL NORWOOD MD Ot E11.9 TYPE 2 DIABETES MELLITUS WITHOUT COMPLIC 11/26/2017 LUL NORWOOD MD, Ot E66.9 OBESITY, UNSPECIFIED 11/26/2017 LUL NORWOOD MD, Ot E78.5 HYPERLIPIDEMIA, UNSPECIFIED 11/26/2017 LUL NORWOOD MD, Ot F32.9 MAJOR DEPRESSIVE DISORDER, SINGLE EPISOD 11/26/2017 LUL NORWOOD MD, Ot G89.18 OTHER ACUTE POSTPROCEDURAL PAIN 11/26/2017 [...] ADULT 11/26/2017 LUL NORWOOD MD, Ot Z79.01 SUPERINTENDENT MARINE OIL TERMINAL (CURRENT) USE OF ANTICOAGULANT 11/26/2017 LUL NORWOOD MD, Ot Z79.82 RESIDENTIAL (CURRENT) USE OF ASPIRIN 11/26/2017 LUL NORWOOD MD, Ot Z79.899 OTHER RESIDENTIAL (CURRENT) DRUG THERAPY 11/26/2017 LUL NORWOOD MD, [...] INITI 11/27/2017 PRUDENCE SHAW MD, Ot Z79.01 RESIDENTIAL (CURRENT) USE OF ANTICOAGULANT 11/27/2017 PRUDENCE SHAW MD, Ot Z79.82 SUPERINTENDENT MARINE OIL TERMINAL (CURRENT) USE OF ASPIRIN 11/27/2017 PRUDENCE SHAW MD, Ot Z79.84 SUPERINTENDENT MARINE OIL TERMINAL (CURRENT) USE OF ORAL HYPOGLYC 11/27/2017 PRUDENCE SHAW MD, Ot Z79.899 OTHER SUPERINTENDENT MARINE OIL TERMINAL (CURRENT) DRUG THERAPY 11/27/2017 PRUDENCE SHAW MD, [...] SATHISH ABADP Ot J43.9 EMPHYSEMA, UNSPECIFIED 12/03/2017 BAIMA, SATHISH L BRIDGE SAW OPERATOR Ot 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 12/08/2017 SATHISH ABAD BRIDGE SAW OPERATOR Ot 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 12/08/2017 SATHISH ABAD BRIDGE SAW OPERATOR Ot 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 12/08/2017 SATHISH ABAD BRIDGE SAW OPERATOR Ot I71.4 ABDOMINAL AORTIC ANEURYSM, WITHOUT RUPTU 12/08/2017 SATHISH ABAD BRIDGE SAW OPERATOR Ot I77.2 RUPTURE OF ARTERY 12/08/2017 SATHISH ABAD BRIDGE SAW OPERATOR Ot J43.9 EMPHYSEMA, UNSPECIFIED 12/08/2017 SATHISH ABAD BRIDGE SAW OPERATOR Ot 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 AT [...] STRIKE 2017 JESSICA JENKINS MD Ot Z79.01 RESIDENTIAL (CURRENT) USE OF ANTICOAGULANT 2017 JESSICA JENKINS MD Ot Z79.02 SUPERINTENDENT MARINE OIL TERMINAL (CURRENT) USE OF ANTITHROMBOTI 2017 JESSICA JENKINS MD, Ot Z79.82 SUPERINTENDENT MARINE OIL TERMINAL (CURRENT) USE OF ASPIRIN 2017 JESSICA JENKINS MD Ot Z79.84 RESIDENTIAL (CURRENT) USE OF ORAL HYPOGLYC 2017 JESSICA [...] Ot E78.00 PURE HYPERCHOLESTEROLEMIA, UNSPECIFIED 12/17/2017 JESSICA JENIKNS MD Ot F32.9 MAJOR DEPRESSIVE DISORDER, SINGLE [...] STRIKE 12/17/2017 JESSICA JENKINS MD, Ot Z79.01 RESIDENTIAL (CURRENT) USE OF ANTICOAGULANT 12/17/2017 JESSICA JENKINS MD, Ot Z79.02 RESIDENTIAL (CURRENT) USE OF ANTITHROMBOTI 12/17/2017 JESSICA JENKINS MD, Ot Z79.82 SUPERINTENDENT MARINE OIL TERMINAL (CURRENT) USE OF ASPIRIN 12/17/2017 JESSICA JENKINS MD, Ot Z79.84 RESIDENTIAL (CURRENT) USE OF ORAL HYPOGLYC 12/17/2017 JESSICA JENKINS MD, Ot Z80.0 FAMILY HISTORY OF MALIGNANT NEOPLASM OF 12/17/2017 JESSICA JENKINS MD, Ot Z80.1 FAMILY HISTORY OF MALIG NEOPLASM OF TRAC 12/17/2017 JESSICA JENKINS MD Ot Z82.49 FAMILY HX OF ISCHEM HEART DIS AND OTH DI 12/17/2017 JESSICA JENKINS MD, Ot Z87.01 PERSONAL HISTORY OF PNEUMONIA (RECURRENT 12/17/2017 JESSICA JENKINS MD, Ot Z87.19 PERSONAL HISTORY OF OTHER DISEASES [...] AND STENOSIS OF BILATERAL LENZ 12/23/2017 SATHISH ABADP Ot 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 12/23/2017 SATHISH AABDP Ot I71.4 ABDOMINAL AORTIC ANEURYSM, WITHOUT RUPTU 12/23/2017 SATHISH ABAD BRIDGE SAW OPERATOR Ot K42.9 UMBILICAL HERNIA WITHOUT OBSTRUCTION OR 12/23/2017 SATHISH ABADP Ot K76.89 OTHER SPECIFIED DISEASES OF LIVER 12/23/2017 KEVONSATHISH HOUSE L BRIDGE SAW OPERATOR Ot N28.1 CYST OF KIDNEY, ACQUIRED 12/24/2017 RABBI ROLDAN, MARCIA Funk Ot 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 12/24/2017 RABBI ROLDAN, MARCIA Funk Ot Z01.810 ENCOUNTER FOR PREPROCEDURAL CARDIOVASCUL 12/24/2017 MARCIA LUI MD Ot Z01.811 ENCOUNTER FOR PREPROCEDURAL RESPIRATORY 12/24/2017 MARCIA LUI MD Ot Z01.812 ENCOUNTER FOR PREPROCEDURAL LABORATORY E 12/24/2017 KEVONSATHISH HOUSE L BRIDGE SAW OPERATOR Ot 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 12/24/2017 KEVONLACY SATHISH L BRIDGE SAW OPERATOR Ot 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 12/24/2017 KEVONLACY SATHISH L BRIDGE SAW OPERATOR Ot I71.4 ABDOMINAL AORTIC ANEURYSM, WITHOUT RUPTU 12/24/2017 GREYSON ABADHER L BRIDGE SAW OPERATOR Ot I77.2 RUPTURE OF ARTERY 12/24/2017 JENNIFFER SATHISH L BRIDGE SAW OPERATOR Ot J43.9 EMPHYSEMA, UNSPECIFIED 12/24/2017 KEVONLACY SATHISH L BRIDGE SAW OPERATOR Ot 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 01/07/2018 KEVONLACY SATHISH L BRIDGE SAW OPERATOR Ot 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 01/07/2018 KEVONLACY SATHISH L BRIDGE SAW OPERATOR Ot I70.201 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 [facility] 01/07/2018 KEVONLACY SATHISH L BRIDGE SAW OPERATOR Ot I71.4 ABDOMINAL AORTIC ANEURYSM, WITHOUT RUPTU 01/07/2018 JENNIFFER SATHISH L BRIDGE SAW OPERATOR Ot K42.9 UMBILICAL HERNIA WITHOUT OBSTRUCTION OR 01/07/2018 KEVONLACY SATHISH L BRIDGE SAW OPERATOR Ot K76.89 OTHER SPECIFIED DISEASES OF LIVER 01/07/2018 KEVONSATHISH HOUSE L BRIDGE SAW OPERATOR Ot N28.1 CYST OF KIDNEY, ACQUIRED 01/08/2018 KEVONLACY SATHISH L BRIDGE SAW OPERATOR Ot 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 01/08/2018 KEVONLACY SATHISH L BRIDGE SAW OPERATOR Ot 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 01/08/2018 GREYSON ABADHER L BRIDGE SAW OPERATOR Ot I71.4 ABDOMINAL AORTIC ANEURYSM, WITHOUT RUPTU 01/08/2018 BAIMA, SATHISH L BRIDGE SAW OPERATOR Ot I77.2 RUPTURE OF ARTERY 01/08/2018 KEVONSATHISH HOUSE Bette BRIDGE SAW OPERATOR Ot J43.9 EMPHYSEMA, UNSPECIFIED 01/08/2018 JENNIFFERSATHISH Bette BRIDGE SAW OPERATOR Ot 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 01/16/2018 MARCIA LUI MD Ot 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 01/16/2018 MARCIA LUI MD Ot Z01.810 ENCOUNTER FOR PREPROCEDURAL CARDIOVASCUL 01/16/2018 MARCIA LUI MD F Ot Z01.811 ENCOUNTER FOR PREPROCEDURAL RESPIRATORY 01/16/2018 MARCIA LUI MD Ot Z01.812 ENCOUNTER FOR PREPROCEDURAL LABORATORY E 01/24/2018 MARCIA LUI MD Ot 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 01/24/2018 MARCIA LUI MD Ot Z01.810 ENCOUNTER FOR PREPROCEDURAL CARDIOVASCUL 01/24/2018 MARCIA LUI MD Ot Z01.811 ENCOUNTER FOR PREPROCEDURAL RESPIRATORY 01/24/2018 MARCIA LUI MD Ot Z01.812 ENCOUNTER FOR PREPROCEDURAL LABORATORY E 01/28/2018 CHELLE GOETZ MD, FACCP CCDS Ot E78.4 OTHER HYPERLIPIDEMIA 01/28/2018 BISHNU [...] OF BILATERAL [place] 01/28/2018 CHELLE GOETZ MD, FACC FACP CCDS Ot I70.1 ATHEROSCLEROSIS OF RENAL ARTERY 01/28/2018 CHELLE GOETZ MD, FACC FACP CCDS Ot I71.4 ABDOMINAL AORTIC ANEURYSM, WITHOUT RUPTU 01/28/2018 BISHNU ROLDAN FACC, CHELLE FACP CCDS Ot I73.9 PERIPHERAL VASCULAR DISEASE, UNSPECIFIED 01/28/2018 BISHNU ROLDAN FACC, ALI FACP CCDS Ot J44.9 CHRONIC OBSTRUCTIVE PULMONARY DISEASE, U 01/28/2018 BISHNU ROLDAN FACC, ALI FACP CCDS Ot Z79.899 OTHER RESIDENTIAL (CURRENT) DRUG THERAPY 01/28/2018 BISHNU ROLDAN FACC, CHELLE FACP CCDS Ot Z87.891 PERSONAL HISTORY OF NICOTINE DEPENDENCE 01/28/2018 BISHNU ROLDAN FACC, ALI FACP CCDS Ot Z88.1 ALLERGY STATUS TO OTHER ANTIBIOTIC AGENT 01/28/2018 BISHNU ROLDAN FACC, ALI FACP CCDS Ot Z88.2 ALLERGY STATUS TO SULFONAMIDES STATUS 01/28/2018 BISHNU ROLDAN FACC, CHELLE FACP CCDS Ot Z88.[address] [facility] DRUG/MEDS/BIOL SUB 01/28/2018 CHELLE GOETZ MD, FACC FACP CCDS [...] CCDS Ot E78.5 HYPERLIPIDEMIA, UNSPECIFIED 03/11/2018 BISHNU MD FACC, ALI FACP CCDS Ot [...] OF [place] CORONARY 03/25/2018 BISHNU ROLDAN FACC, ALI FACP [...] PAROXYSMAL ATRIAL FIBRILLATION 04/01/2018 BISHNU ROLDAN FACC, CHELLE FACP CCDS Ot I70.1 ATHEROSCLEROSIS OF RENAL ARTERY 04/01/2018 BISHNU ROLDAN FACC, CHELLE FACP CCDS Ot 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 04/01/2018 BISHNU ROLDAN FACC, ALI FACP CCDS Ot I71.4 ABDOMINAL AORTIC ANEURYSM, WITHOUT RUPTU 04/01/2018 BISHNU ROLDAN FACC, ALI FACP CCDS Ot 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..] ENCOUNTER FOR PREPROCEDURAL RESPIRATORY 04/11/2018 RAFIQ CAMPOVERDE BRIDGE SAW OPERATOR Ot I70.208 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 [facility] 04/11/2018 RAFIQ CAMPOVERDE BRIDGE SAW OPERATOR Ot I70.8 ATHEROSCLEROSIS OF OTHER ARTERIES 04/11/2018 RAFIQ CAMPOVERDE BRIDGE SAW OPERATOR Ot I71.4 ABDOMINAL AORTIC ANEURYSM, WITHOUT RUPTU 04/11/2018 GILLES RAFIQ Magaña BRIDGE SAW OPERATOR Ot 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 04/11/2018 GILLES RAFIQ Magaña BRIDGE SAW OPERATOR Ot K43.9 VENTRAL HERNIA WITHOUT OBSTRUCTION OR GA 04/11/2018 GILLES RAFIQ Magaña BRIDGE SAW OPERATOR Ot N28.89 OTHER SPECIFIED DISORDERS OF KIDNEY AND 04/30/2018 CAMPOVERDEBRYNIE Archana BRIDGE SAW OPERATOR Ot I70.208 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 04/30/2018 CAMPOVERDE RAFIQ Magaña BRIDGE SAW OPERATOR Ot I70.8 ATHEROSCLEROSIS OF OTHER ARTERIES 04/30/2018 GILLES RAFIQ Archana BRIDGE SAW OPERATOR Ot I71.4 ABDOMINAL AORTIC ANEURYSM, WITHOUT RUPTU 04/30/2018 GILLES RAFIQ Magaña BRIDGE SAW OPERATOR Ot 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 04/30/2018 GILLES RAFIQ Magaña BRIDGE SAW OPERATOR Ot K43.9 VENTRAL HERNIA WITHOUT OBSTRUCTION OR GA 04/30/2018 GILLES RAFIQ Magaña BRIDGE SAW OPERATOR Ot N28.89 OTHER SPECIFIED DISORDERS OF KIDNEY AND 05/05/2018 EUNICE ROLDAN, JUAREZ Powell Ot E11.9 TYPE 2 DIABETES MELLITUS WITHOUT [...] ABDOMINAL AORTIC ANEURYSM, WITHOUT RUPTU 05/05/2018 JUAREZ DAWSON MD Ot M54.5 LOW BACK PAIN 05/05/2018 JUAREZ DAWSON MD Ot N39.0 URINARY TRACT INFECTION, SITE NOT SPECIF 05/05/2018 JUAREZ DAWSON MD Ot S32.030A WEDGE COMPRESSION FRACTURE OF THIRD LUMB 05/05/2018 JUAREZ DAWSON MD, Ot X50.0XXA OVEREXERTION FROM STRENUOUS MOVEMENT OR 05/05/2018 JUAREZ DAWSON MD, Ot Z79.82 SUPERINTENDENT MARINE OIL TERMINAL (CURRENT) USE OF ASPIRIN 05/05/2018 JUAREZ DAWSON MD, Ot Z79.84 SUPERINTENDENT MARINE OIL TERMINAL (CURRENT) USE OF ORAL HYPOGLYC 05/05/2018 JUAREZ DAWSON MD, Ot Z87.891 PERSONAL HISTORY OF NICOTINE DEPENDENCE 05/05/2018 JUAREZ DAWSON MD, Ot Z88.2 ALLERGY STATUS TO SULFONAMIDES STATUS 05/05/2018 JUAREZ DAWSON MD, Ot Z88.6 ALLERGY STATUS TO ANALGESIC AGENT STATUS 05/05/2018 JUAREZ DAWSON MD, Ot Z90.49 ACQUIRED ABSENCE OF OTHER SPECIFIED PART 05/05/2018 JUAREZ DAWSON MD Ot Z90.710 ACQUIRED ABSENCE [...] E78.00 PURE HYPERCHOLESTEROLEMIA, UNSPECIFIED 05/07/2018 JUAREZ DAWSON MD Ot F32.9 MAJOR DEPRESSIVE DISORDER, SINGLE EPISOD 05/07/2018 JUAREZ DAWSON MD, Ot F41.9 ANXIETY DISORDER, UNSPECIFIED 05/07/2018 JUAREZ DAWSON MD, Ot I10 ESSENTIAL (PRIMARY) HYPERTENSION 05/07/2018 JUAREZ DAWSON MD, Ot I25.10 ATHSCL HEART DISEASE OF [...] FROM STRENUOUS MOVEMENT OR 05/07/2018 JUAREZ DAWSON MD Ot Z79.82 SUPERINTENDENT MARINE OIL TERMINAL (CURRENT) USE OF ASPIRIN 05/07/2018 JUAREZ DAWSON MD, Ot Z79.84 SUPERINTENDENT MARINE OIL TERMINAL (CURRENT) USE OF ORAL HYPOGLYC 05/07/2018 JUAREZ DAWSON MD, Ot Z87.891 PERSONAL HISTORY OF NICOTINE DEPENDENCE 05/07/2018 JUAREZ DAWSON MD, Ot Z88.2 ALLERGY STATUS TO SULFONAMIDES STATUS 05/07/2018 JUAREZ DAWSON MD, Ot Z88.6 ALLERGY STATUS TO ANALGESIC AGENT STATUS 05/07/2018 JUAREZ DAWSON MD, Ot Z90.49 ACQUIRED ABSENCE OF OTHER SPECIFIED PART 05/07/2018 JUAREZ DAWSON MD Ot Z90.710 ACQUIRED ABSENCE OF BOTH CERVIX AND UTER 05/07/2018 JUAREZ DAWSON MD Ot Z90.89 ACQUIRED ABSENCE OF OTHER ORGANS 05/07/2018 JUAREZ DAWSON MD Ot 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 BYPASS GRAFT 05/07/2018 JUAREZ DAWSON MD Ot Z98.890 OTHER SPECIFIED POSTPROCEDURAL STATES 05/12/2018 RAFIQ CAMPOVERDE Ot I70.208 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 05/12/2018 RAFIQ CAMPOVERDE Ot I70.8 ATHEROSCLEROSIS OF OTHER ARTERIES 05/12/2018 RAFIQ CAMPOVERDE Ot I71.4 ABDOMINAL AORTIC ANEURYSM, WITHOUT RUPTU 05/12/2018 RAFIQ CAMPOVERDE Ot 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 05/12/2018 RAFIQ CAMPOVERDE Ot K43.9 VENTRAL HERNIA WITHOUT OBSTRUCTION OR GA 05/12/2018 RAFIQ CAMPOVERDE Ot N28.89 OTHER SPECIFIED DISORDERS OF KIDNEY AND 05/29/2018 CAROLINE MENDOZA MD Ot 338.29 OTHER CHRONIC PAIN 05/29/2018 CAROLINE MENDOZA MD Ot 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 05/29/2018 CAROLINE MENDOZA MD Ot 724.2 LUMBAGO 05/29/2018 CAROLINE MENDOZA MD Ot 724.4 LUMBOSACRAL NEURITIS NOS 05/29/2018 MAX DHILLON BRIDGE SAW OPERATOR Ot 401.1 BENIGN HYPERTENSION 05/29/2018 MAX DHILLON BRIDGE SAW OPERATOR Ot 424.1 AORTIC VALVE DISORDER 05/29/2018 MAX DHILLON BRIDGE SAW OPERATOR Ot 785.2 CARDIAC MURMURS NEC 05/29/2018 MAX DHILLON BRIDGE SAW OPERATOR Ot 786.05 SHORTNESS OF BREATH 05/29/2018 ANDRE [...] V85.33 BODY MASS INDEX 33.0-33.9, ADULT 05/29/2018 SHANIQUE VEGA MD Ot 791.9 ABN URINE FINDINGS NEC 05/29/2018 [...] I10 ESSENTIAL (PRIMARY) HYPERTENSION 05/29/2018 [facility], ALI FACP CCDS Ot I25.10 ATHSCL HEART DISEASE OF [place] CORONARY 05/29/2018 BISHNU HDEZC, ALI FACP CCDS Ot I48.0 PAROXYSMAL ATRIAL FIBRILLATION 05/29/2018 BISHNU HDEZC, ALI FACP CCDS Ot I71.4 ABDOMINAL AORTIC ANEURYSM, WITHOUT RUPTU 05/29/2018 LUL NORWOOD MD Ot R32 UNSPECIFIED URINARY INCONTINENCE 05/29/2018 LUL NORWOOD MD Ot R33.9 RETENTION OF URINE, UNSPECIFIED 05/29/2018 LUL NORWOOD MD Ot Z01.818 ENCOUNTER FOR OTHER PREPROCEDURAL EXAMIN 05/29/2018 SATHISH ABAD BRIDGE SAW OPERATOR Ot 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 05/29/2018 SATHISH ABAD BRIDGE SAW OPERATOR Ot 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 05/29/2018 SATHISH ABAD L BRIDGE SAW OPERATOR Ot I71.4 ABDOMINAL AORTIC ANEURYSM, WITHOUT RUPTU 05/29/2018 SATHISH ABAD BRIDGE SAW OPERATOR Ot K42.9 UMBILICAL HERNIA WITHOUT OBSTRUCTION OR 05/29/2018 SATHISH ABAD BRIDGE SAW OPERATOR Ot K76.89 OTHER SPECIFIED DISEASES OF LIVER 05/29/2018 SATHISH ABAD BRIDGE SAW OPERATOR Ot N28.1 CYST OF KIDNEY, ACQUIRED 05/29/2018 SATHISH ABAD BRIDGE SAW OPERATOR Ot 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 05/29/2018 SATHISH ABAD BRIDGE SAW OPERATOR Ot 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 05/29/2018 SATHISH ABAD BRIDGE SAW OPERATOR Ot I71.4 ABDOMINAL AORTIC ANEURYSM, WITHOUT RUPTU 05/29/2018 SATHISH ABAD BRIDGE SAW OPERATOR Ot I77.2 RUPTURE OF ARTERY 05/29/2018 SATHISH ABAD BRIDGE SAW OPERATOR Ot J43.9 EMPHYSEMA, UNSPECIFIED 05/29/2018 SATHISH ABAD BRIDGE SAW OPERATOR Ot 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 05/29/2018 MARCIA LUI MD Ot 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 05/29/2018 MARCIA LUI MD F Ot Z01.810 ENCOUNTER FOR PREPROCEDURAL CARDIOVASCUL 05/29/2018 MARCIA LUI MD Ot Z01.811 ENCOUNTER FOR PREPROCEDURAL RESPIRATORY 05/29/2018 MARCIA LUI MD Ot Z01.812 ENCOUNTER FOR PREPROCEDURAL LABORATORY E 05/29/2018 BISHNU ROLDAN FACC, CHELLE HDEZP CCDS Ot E78.5 HYPERLIPIDEMIA, UNSPECIFIED 05/29/2018 BISHNU ROLDAN FACC, CHELLE HDEZP CCDS Ot I25.10 ATHSCL HEART DISEASE OF [place] CORONARY 05/29/2018 BISHNU ROLDAN FACC, CHELLE HDEZP CCDS Ot I48.0 PAROXYSMAL ATRIAL FIBRILLATION 05/29/2018 BISHNU ROLDAN FACC, CHELLE HDEZP CCDS Ot I71.4 ABDOMINAL AORTIC ANEURYSM, WITHOUT RUPTU 05/29/2018 BISHNU ROLDAN FAC, CHELLE WALTERS CCDS Ot R06.02 SHORTNESS OF BREATH 05/29/2018 CHELLE GOETZ MD, FACC, FACP CCDS Ot R53.1 WEAKNESS 05/29/2018 MARCIA [...] ENCOUNTER FOR PREPROCEDURAL RESPIRATORY 05/29/2018 RAFIQ CAMPOVERDE BRIDGE SAW OPERATOR Ot I70.208 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 05/29/2018 RAFIQ CAMPOVERDE BRIDGE SAW OPERATOR Ot I70.8 ATHEROSCLEROSIS OF OTHER ARTERIES 05/29/2018 RAFIQ CAMPOVERDE BRIDGE SAW OPERATOR Ot I71.4 ABDOMINAL AORTIC ANEURYSM, WITHOUT RUPTU 05/29/2018 RAFIQ CAMPOVERDE BRIDGE SAW OPERATOR Ot 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 05/29/2018 RAFIQ CAMPOVERDE BRIDGE SAW OPERATOR Ot K43.9 VENTRAL HERNIA WITHOUT OBSTRUCTION OR GA 05/29/2018 RAFIQ CAMPOVERDE BRIDGE SAW OPERATOR Ot N28.89 OTHER SPECIFIED DISORDERS OF KIDNEY [...] Ot Z01.810 ENCOUNTER FOR PREPROCEDURAL CARDIOVASCUL 05/30/2018 RONIT LUI MDL F Ot Z01.811 ENCOUNTER FOR PREPROCEDURAL RESPIRATORY 09/04/2018 JENNIFER EGAN Ot E11.9 TYPE 2 DIABETES MELLITUS WITHOUT COMPLIC 09/04/2018 JENNIFER EGAN Ot F32.9 MAJOR DEPRESSIVE DISORDER, SINGLE EPISOD 09/04/2018 JENNIFER EGAN Ot F41.0 PANIC DISORDER [EPISODIC PAROXYSMAL ANXI 09/04/2018 JENNIFER EGAN Ot J45.909 UNSPECIFIED ASTHMA, UNCOMPLICATED 09/04/2018 JENNIFER EGNA Ot N39.0 URINARY TRACT INFECTION, SITE NOT SPECIF 09/04/2018 JENNIFER EGAN Ot R10.30 LOWER ABDOMINAL PAIN, UNSPECIFIED 09/04/2018 JENNIFER EGAN Ot Z79.01 RESIDENTIAL (CURRENT) USE OF ANTICOAGULANT 09/04/2018 JENNIFER EGAN Ot Z79.51 SUPERINTENDENT MARINE OIL TERMINAL (CURRENT) USE OF INHALED STERO 09/04/2018 JENNIFER EGAN Ot Z79.82 SUPERINTENDENT MARINE OIL TERMINAL (CURRENT) USE OF ASPIRIN 09/04/2018 JENNIFER EGAN Ot Z79.84 RESIDENTIAL (CURRENT) USE OF ORAL HYPOGLYC 09/04/2018 JENNIFER EGAN Ot Z80.0 FAMILY HISTORY OF MALIGNANT NEOPLASM OF 09/04/2018 JENNIFER EGAN Ot Z82.49 FAMILY HX OF ISCHEM HEART DIS AND OTH DI 09/04/2018 JENNIFER EGAN Ot Z87.19 PERSONAL HISTORY OF OTHER DISEASES OF TH 09/04/2018 JENNIFER EGAN Ot Z87.440 PERSONAL HISTORY OF URINARY (TRACT) INFE 09/04/2018 JENNIFER EGAN Ot Z87.891 PERSONAL HISTORY OF NICOTINE DEPENDENCE 09/04/2018 JENNIFER EGAN Ot Z88.2 ALLERGY STATUS TO SULFONAMIDES STATUS 09/04/2018 JENNIFER EGAN Ot Z88.8 ALLERGY STATUS TO OTH DRUG/MEDS/BIOL SUB 09/04/2018 JENNIFER EGAN Ot Z90.710 ACQUIRED ABSENCE OF BOTH CERVIX AND UTER 09/04/2018 JENNIFER EGAN Ot Z90.89 ACQUIRED ABSENCE OF OTHER ORGANS 09/04/2018 JENNIFER EGAN Ot 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 BYPASS GRAFT 09/04/2018 JENNIFER EGAN Ot Z96.0 PRESENCE OF UROGENITAL IMPLANTS 09/11/2018 JENNIFER EGAN Ot E11.9 TYPE 2 DIABETES MELLITUS WITHOUT COMPLIC 09/11/2018 JENNIFER EGAN Ot F32.9 MAJOR DEPRESSIVE DISORDER, SINGLE EPISOD 09/11/2018 JENNIFER EGAN Ot F41.0 PANIC DISORDER [EPISODIC PAROXYSMAL ANXI 09/11/2018 JENNIFER EGAN Ot J45.909 UNSPECIFIED ASTHMA, UNCOMPLICATED 09/11/2018 JENNIFER EGAN Ot N39.0 URINARY TRACT INFECTION, SITE NOT SPECIF 09/11/2018 JENNIFER EGAN Ot R10.30 LOWER ABDOMINAL PAIN, UNSPECIFIED 09/11/2018 JENNIFER EGAN Ot Z79.01 RESIDENTIAL (CURRENT) USE OF ANTICOAGULANT 09/11/2018 JENNIFER EGAN Ot Z79.51 RESIDENTIAL (CURRENT) USE OF INHALED STERO 09/11/2018 JENNIFER EGAN Ot Z79.82 SUPERINTENDENT MARINE OIL TERMINAL (CURRENT) USE OF ASPIRIN 09/11/2018 JENNIFER EGAN Ot Z79.84 SUPERINTENDENT MARINE OIL TERMINAL (CURRENT) USE OF ORAL HYPOGLYC 09/11/2018 JENNIFER EGAN Ot Z80.0 FAMILY HISTORY OF MALIGNANT NEOPLASM OF 09/11/2018 JENNIFER EGAN Ot Z82.49 FAMILY HX OF ISCHEM HEART DIS AND OTH DI 09/11/2018 JENNIFER EGAN Ot Z87.19 PERSONAL HISTORY OF OTHER DISEASES OF TH 09/11/2018 JENNIFER EGAN Ot Z87.440 PERSONAL HISTORY OF URINARY (TRACT) INFE 09/11/2018 JENNIFER EGAN Ot Z87.891 PERSONAL HISTORY OF NICOTINE DEPENDENCE 09/11/2018 JENNIFER EGAN Ot Z88.2 ALLERGY STATUS TO SULFONAMIDES STATUS 09/11/2018 JENNIFER EGAN Ot Z88.8 ALLERGY STATUS TO OTH DRUG/MEDS/BIOL SUB 09/11/2018 JENNIFER EGAN Ot Z90.710 ACQUIRED ABSENCE OF BOTH CERVIX AND UTER 09/11/2018 JENNIFER EGAN Ot Z90.89 ACQUIRED ABSENCE OF OTHER ORGANS 09/11/2018 JENNIFER EGAN Ot 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 BYPASS GRAFT 09/11/2018 JENNIFER EGAN Ot Z96.0 PRESENCE OF UROGENITAL IMPLANTS 04/06/2019 MAX DHILLON Ot 401.1 BENIGN HYPERTENSION 04/06/2019 MAX DHILLON Ot 424.1 AORTIC VALVE DISORDER 04/06/2019 MAX DHILLON Ot 785.2 CARDIAC MURMURS NEC 04/06/2019 MAX DHILLON Ot 786.05 SHORTNESS OF BREATH 04/06/2019 ANDRE HERNANDEZ DO Ot 715.91 OSTEOARTHROS NOS-SHLDER 04/06/2019 ANDRE HERNANDEZ DO Ot 727.61 ROTATOR CUFF RUPTURE 04/06/2019 DIANNA MACHADO MD Ot 278.00 OBESITY, NOS 04/06/2019 DIANNA MACHADO MD Ot 721.3 LUMBOSACRAL SPONDYLOSIS 04/06/2019 DIANNA MACHADO MD Ot 724.6 DISORDERS OF SACRUM 04/06/2019 DIANNA MACHADO MD Ot 729.1 MYALGIA AND MYOSITIS NOS 04/06/2019 DIANNA MACHADO MD Ot V58.69 OTH MED,LT,CURRENT USE 04/06/2019 DIANNA MACHADO MD Ot V85.35 BODY MASS INDEX 35.0-35.9, ADULT 04/06/2019 DIANNA MACHADO MD Ot 278.00 OBESITY, NOS 04/06/2019 DIANNA MACHADO MD Ot 715.95 OSTEOARTHROS NOS-PELVIS 04/06/2019 DIANNA MACHADO MD Ot 721.3 LUMBOSACRAL SPONDYLOSIS 04/06/2019 DIANNA MACHADO MD Ot 729.1 MYALGIA AND MYOSITIS NOS 04/06/2019 DIANNA MACHADO MD, Ot V58.69 OTH MED,LT,CURRENT USE 04/06/2019 DIANNA MACHADO MD Ot V85.33 BODY MASS INDEX 33.0-33.9, ADULT 04/06/2019 SHANIQUE VEGA MD Ot 791.9 ABN URINE FINDINGS NEC 04/06/2019 BISHNU ROLDAN FACC, CHELLE WALTERS CCDS Ot E78.5 HYPERLIPIDEMIA, UNSPECIFIED 04/06/2019 BISHNU MD FACC, ALI FACP CCDS Ot I10 ESSENTIAL (PRIMARY) HYPERTENSION 04/06/2019 BISHNU FAC, ALI FACP CCDS Ot I25.10 ATHSCL HEART DISEASE OF [place] CORONARY 04/06/2019 BISHNU MD FACC, ALI FACP CCDS Ot I48.0 PAROXYSMAL ATRIAL FIBRILLATION 04/06/2019 BISHNU FACC, ALI FACP CCDS Ot I65.29 OCCLUSION AND STENOSIS OF UNSPECIFIED CA 04/06/2019 BISHNU FACC, ALI FACP CCDS Ot R06.02 SHORTNESS OF BREATH 04/06/2019 BISHNU FACC, ALI FACP CCDS Ot E78.5 HYPERLIPIDEMIA, UNSPECIFIED 04/06/2019 BISHNU MD FAC, ALI FACP CCDS Ot I10 ESSENTIAL (PRIMARY) HYPERTENSION 04/06/2019 BISHNU [facility], ALI FACP CCDS Ot I25.10 ATHSCL HEART DISEASE OF [place] CORONARY 04/06/2019 BISHNU ROLDAN [facility], ALI FACP CCDS Ot I48.0 PAROXYSMAL ATRIAL FIBRILLATION 04/06/2019 [facility], ALI FACP CCDS Ot I65.29 OCCLUSION AND STENOSIS OF UNSPECIFIED CA 04/06/2019 [facility], ALI FACP CCDS Ot E78.4 OTHER HYPERLIPIDEMIA 04/06/2019 [facility], ALI FACP CCDS Ot I10 ESSENTIAL (PRIMARY) HYPERTENSION 04/06/2019 [facility], ALI FACP CCDS Ot I25.10 ATHSCL HEART DISEASE OF [place] CORONARY 04/06/2019 [facility], ALI FACP CCDS Ot I48.0 PAROXYSMAL ATRIAL FIBRILLATION 04/06/2019 [facility], ALI FACP CCDS Ot I71.4 ABDOMINAL AORTIC ANEURYSM, WITHOUT RUPTU 04/06/2019 LUL NORWOOD MD Ot R32 UNSPECIFIED URINARY INCONTINENCE 04/06/2019 LUL NORWOOD MD Ot R33.9 RETENTION OF URINE, UNSPECIFIED 04/06/2019 LUL NORWOOD MD Ot Z01.818 ENCOUNTER FOR OTHER PREPROCEDURAL EXAMIN 04/06/2019 SATHISH ABAD BRIDGE SAW OPERATOR Ot 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 04/06/2019 SATHISH ABAD BRIDGE SAW OPERATOR Ot 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 04/06/2019 SATHISH ABAD BRIDGE SAW OPERATOR Ot I71.4 ABDOMINAL AORTIC ANEURYSM, WITHOUT RUPTU 04/06/2019 SATHISH ABAD BRIDGE SAW OPERATOR Ot K42.9 UMBILICAL HERNIA WITHOUT OBSTRUCTION OR 04/06/2019 SATHISH ABAD BRIDGE SAW OPERATOR Ot K76.89 OTHER SPECIFIED DISEASES OF LIVER 04/06/2019 SATHISH ABAD BRIDGE SAW OPERATOR Ot N28.1 CYST OF KIDNEY, ACQUIRED 04/06/2019 SATHISH ABAD BRIDGE SAW OPERATOR Ot 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 04/06/2019 SATHISH ABAD BRIDGE SAW OPERATOR Ot 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 04/06/2019 SATHISH ABAD BRIDGE SAW OPERATOR Ot I71.4 ABDOMINAL AORTIC ANEURYSM, WITHOUT RUPTU 04/06/2019 SATHISH ABAD BRIDGE SAW OPERATOR Ot I77.2 RUPTURE OF ARTERY 04/06/2019 SATHISH ABAD BRIDGE SAW OPERATOR Ot J43.9 EMPHYSEMA, UNSPECIFIED 04/06/2019 SATHISH ABAD BRIDGE SAW OPERATOR Ot 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 04/06/2019 MARCIA LUI MD Ot 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 04/06/2019 MARCIA LUI MD Ot Z01.810 ENCOUNTER FOR PREPROCEDURAL CARDIOVASCUL 04/06/2019 MARCIA LUI MD Ot Z01.811 ENCOUNTER FOR PREPROCEDURAL RESPIRATORY 04/06/2019 MARCIA LUI MD Ot Z01.812 ENCOUNTER FOR PREPROCEDURAL LABORATORY E 04/06/2019 [facility], CHELLE FACP CCDS Ot E78.5 HYPERLIPIDEMIA, UNSPECIFIED 04/06/2019 [facility], CHELLE FACP CCDS Ot I25.10 ATHSCL HEART DISEASE OF [place] CORONARY 04/06/2019 [facility], CHELLE FACP CCDS Ot I48.0 PAROXYSMAL ATRIAL FIBRILLATION 04/06/2019 [facility], CHELLE FACP CCDS Ot I71.4 ABDOMINAL AORTIC ANEURYSM, WITHOUT RUPTU 04/06/2019 [facility], CHELLE FACP CCDS Ot R06.02 SHORTNESS OF BREATH 04/06/2019 [facility], CHELLE FACP CCDS Ot R53.1 WEAKNESS 04/06/2019 MARCIA LUI MD Ot 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 04/06/2019 MARCIA LUI MD Ot Z01.810 ENCOUNTER FOR PREPROCEDURAL CARDIOVASCUL 04/06/2019 MARCIA LUI MD Ot Z01.811 ENCOUNTER FOR PREPROCEDURAL RESPIRATORY 04/06/2019 SHANIQUE VEGA MD Ot R82.90 UNSPECIFIED ABNORMAL FINDINGS IN URINE 04/06/2019 MARCIA LUI MD Ot 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 04/06/2019 MARCIA LUI MD Ot Z01.810 ENCOUNTER FOR PREPROCEDURAL CARDIOVASCUL 04/06/2019 MARCIA LUI MD Ot Z01.811 ENCOUNTER FOR PREPROCEDURAL RESPIRATORY 04/06/2019 RAFIQ CAMPOVERDE Ot I70.208 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 04/06/2019 RAFIQ CAMPOVERDEP Ot I70.8 ATHEROSCLEROSIS OF OTHER ARTERIES 04/06/2019 RAFIQ CAMPOVERDEP Ot I71.4 ABDOMINAL AORTIC ANEURYSM, WITHOUT RUPTU 04/06/2019 RAFIQ CAMPOVERDEP Ot 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 04/06/2019 RAFIQ CAMPOVERDEP Ot K43.9 VENTRAL HERNIA WITHOUT OBSTRUCTION OR GA 04/06/2019 RAFIQ CAMPOVERDEP Ot N28.89 OTHER SPECIFIED DISORDERS OF KIDNEY AND 04/07/2019 SHAHNAZ MARQUZEP Ot R05 COUGH 04/08/2019 SHAHNAZ MARQUEZP Ot R05 COUGH Procedures Code [place] [address] INDIV PSYTX 45/50 MIN 10/22/2012 12943 ROUTINE VENIPUNCTURE 10/24/2012 49319 BMP 10/24/2012 17969 MAGNESIUM 10/24/2012 [id number] GFR CALC (RESULT ONLY) 10/24/2012 2000F BLOOD PRESSURE CHECK 11/14/2012 54467 ROUTINE VENIPUNCTURE 01/15/2013 74494 BMP 01/15/2013 4410588 GFR CALC (RESULT ONLY) 01/15/2013 18391 LIPID PANEL 01/15/2013 16899 ROUTINE VENIPUNCTURE 05/06/2013 20107 A1C (IN-HOUSE) 05/06/2013 97956 CMP 05/06/2013 38706 MAGNESIUM 05/06/2013 [id number] GFR CALC (RESULT ONLY) 05/06/2013 17181 CPK 05/06/2013 72124 PSYTX PT&/FAMILY 45 MINUTES 05/14/2013 00773 OXIMETRY 07/01/2013 J7613 ALBUTEROL UNIT DOSE FORM INHALED 07/01/2013 J2930 SOLUMEDROL INJ 07/02/2013 93593 THERAPUTIC INJ SQ/IM 07/02/2013 08957 OXIMETRY 07/02/2013 2000F BLOOD PRESSURE CHECK 07/02/2013 G0008 FLU ADMINISTRATION (MEDICARE ONLY) 08/06/2013 03071 OXIMETRY 08/13/2013 82744 ROUTINE VENIPUNCTURE 08/31/2013 84726 GLUCOSE 08/31/2013 14324 LIPID PANEL 08/31/2013 38118 A1C (IN-HOUSE) 09/08/2013 77098 XRAY CHEST 2 VIEW 11/12/2013 90231 MEASURE BLOOD OXYGEN LEVEL 11/12/2013 45262 THERAPUTIC INJ SQ/IM 12/11/2013 J2930 SOLUMEDROL INJ 12/11/2013 68101 A1C (IN-HOUSE) 12/11/2013 98103 ROUTINE VENIPUNCTURE 12/15/2013 67121 EKG, TRACING (IN-HOUSE) 12/15/2013 16106 XRAY CHEST 2 VIEW 12/15/2013 91410 ECHO 2D 12/15/2013 00831 OXIMETRY 12/15/2013 83012 CBC 12/15/2013 8399898 GFR CALC (RESULT ONLY) 12/15/2013 60941 CMP 12/15/2013 30923 MAGNESIUM 12/15/2013 14472 BNP 12/16/2013 28590 ROUTINE VENIPUNCTURE 01/13/2014 12202 OXIMETRY 01/13/2014 6794568 GFR CALC (RESULT ONLY) 01/14/2014 83138 CMP 01/14/2014 01478 MAGNESIUM 01/14/2014 56250 OXIMETRY 01/28/2014 94021 ROUTINE VENIPUNCTURE 03/24/2014 79886 LIPID PANEL 03/24/2014 54060 ROUTINE VENIPUNCTURE 07/02/2014 9214617 GFR CALC (RESULT ONLY) 07/02/2014 81949 CMP 07/02/2014 00297 LIPID PANEL 07/02/2014 26138 [employer] 08/17/2014 64961 US SOFT TISSUE (SPECIFY LOCATION) 09/15/2014 CARDIOLOG BISHNUCHELLE DIEHL 09/15/2014 G0008 FLU ADMINISTRATION (MEDICARE ONLY) 09/15/2014 PULMONARY WILL [place] 09/15/2014 12028 US ABDOMINAL ULTRASOUND, COMPLETE 11/26/2014 53098 LEFT HEART CATH 01/25/2015 77342 US CAROTID DOPPLER 01/25/2015 00422 OXIMETRY 01/25/[address] ANGIO, EXTREMITY, LOWER 02/08/2015 Results Test Result Range Capillary blood glucose measurement by glucometer (mass/volume) - 11/27/16 07:15 Capillary blood glucose measurement by glucometer (mass/volume) 117 mg/dL 70-110 Methicillin resistant Staphylococcus aureus (MRSA) screening culture - 11/27/16 07:15 MRSA SCREEN RESULT MRSA ISOLATED NRG Capillary blood glucose measurement by glucometer (mass/volume) - 11/27/16 10:28 Capillary blood glucose measurement by glucometer (mass/volume) 127 mg/dL 70-110 Methicillin resistant Staphylococcus aureus (MRSA) screening culture - 02/12/17 06:10 MRSA SCREEN RESULT MRSA ISOLATED NRG [...] Automated erythrocyte mean corpuscular hemoglobin concentration measurement (mass/volume) 33 g/dL 32-36 Automated erythrocyte distribution width ratio 14.2 % 10.0- 14.5 Automated blood platelet count (count/volume) 250 10*3/uL [...] Serum or plasma aspartate aminotransferase measurement (enzymatic activity/volume) 16 U/L 5-34 Serum or plasma alanine aminotransferase measurement (enzymatic activity/volume) 20 U/L 0-55 Serum or plasma protein measurement (mass/volume) 7.1 g/dL 6.4-8.2 Serum or plasma albumin measurement (mass/volume) 3.9 g/dL 3.2-4.5 Lipid 1996 panel - 10/15/17 08:36 Serum or plasma triglyceride measurement (mass/volume) 60 mg/dL <150 Serum or plasma cholesterol measurement (mass/volume) 139 mg/dL < 200 Serum or plasma cholesterol in HDL measurement (mass/volume) 45 mg/dL 40-60 Cholesterol in LDL [mass/volume] in serum or plasma by direct assay 73 mg/dL 1-129 Serum or plasma cholesterol in VLDL measurement (mass/volume) 12 mg/dL 5-40 Methicillin resistant Staphylococcus aureus (MRSA) screening culture - 10/15/17 08:36 Methicillin resistant Staphylococcus aureus (MRSA) screening culture NEG NRG Methicillin resistant Staphylococcus aureus (MRSA) screening culture - 11/26/17 07:30 MRSA SCREEN RESULT MRSA ISOLATED NRG Capillary blood glucose measurement by glucometer (mass/volume) - 11/26/17 07:34 Capillary blood glucose measurement by glucometer (mass/volume) [...] Automated erythrocyte mean corpuscular hemoglobin concentration measurement (mass/volume) 33 g/dL 32-36 Automated erythrocyte distribution width ratio 14.3 % 10.0- 14.5 Automated blood platelet count (count/volume) 215 10*3/uL [...] Blood monocytes automated count (number/volume) 0.6 10*3 0.0- 1.0 Automated eosinophil count 0.1 10*3/uL 0.0-0.3 Automated [...] Automated erythrocyte mean corpuscular hemoglobin concentration measurement (mass/volume) 34 g/dL 32-36 Automated erythrocyte distribution width ratio 14.3 % 10.0- 14.5 Automated blood platelet count (count/volume) 216 10*3/uL [...] Blood monocytes automated count (number/volume) 1.1 10*3 0.0- 1.0 Automated eosinophil count 0.0 10*3/uL 0.0-0.3 Automated [...] Blood lactic acid measurement (moles/volume) 1.13 mmol/L 0.50- 2.00 Comprehensive metabolic panel - 11/26/17 17:32 Serum [...] Serum or plasma aspartate aminotransferase measurement (enzymatic activity/volume) 16 U/L 5-34 Serum or plasma alanine aminotransferase measurement (enzymatic activity/volume) 17 U/L 0-55 Serum or plasma protein measurement (mass/volume) 6.6 g/dL 6.4-8.2 Serum or plasma albumin measurement (mass/volume) 3.7 g/dL 3.2-4.5 Serum or plasma troponin i.cardiac measurement (mass/volume) - 11/26/17 17:32 Serum or plasma troponin i.cardiac measurement (mass/volume) < ng/mL <0.30 Serum or plasma C reactive protein measurement (mass/volume) - 11/26/17 17:32 Serum or plasma C reactive protein measurement (mass/volume) 0.61 mg/dL 0.00-0.50 Blood manual differential performed detection - [...] gravity of urine by test strip 1.010 1.016-1.022 Urine protein assay by test strip, semi-quantitative [...] sediment leukocyte count by microscopy (number/high power field) [HPF] NRG Bacteria detection in urine sediment [...] glucose measurement by glucometer (mass/volume) - 11/27/17 02:51 Capillary blood glucose measurement by glucometer (mass/volume) [...] Automated erythrocyte mean corpuscular hemoglobin concentration measurement (mass/volume) 34 g/dL 32-36 Automated erythrocyte distribution width ratio 14.3 % 10.0- 14.5 Automated blood platelet count (count/volume) 195 10*3/uL [...] Blood monocytes automated count (number/volume) 0.9 10*3 0.0- 1.0 Automated eosinophil count 0.0 10*3/uL 0.0-0.3 Automated [...] Serum or plasma aspartate aminotransferase measurement (enzymatic activity/volume) 17 U/L 5-34 Serum or plasma alanine aminotransferase measurement (enzymatic activity/volume) 16 U/L 0-55 Serum or plasma protein [...] glucose measurement by glucometer (mass/volume) - 11/27/17 11:15 Capillary blood glucose measurement by glucometer (mass/volume) [...] Automated erythrocyte mean corpuscular hemoglobin concentration measurement (mass/volume) 34 g/dL 32-36 Automated erythrocyte distribution width ratio 14.1 % 10.0- 14.5 Automated blood platelet count (count/volume) 351 10*3/uL [...] Blood monocytes automated count (number/volume) 1.2 10*3 0.0- 1.0 Automated eosinophil count 0.2 10*3/uL 0.0-0.3 Automated blood basophil count (count/volume) 0.0 10*3/uL 0.0-0.1 Blood lactic acid measurement (moles/volume) - 12/14/17 20:40 Blood lactic acid measurement (moles/volume) 1.80 mmol/L 0.50- 2.00 Comprehensive metabolic panel - 12/14/17 20:40 Serum [...] Serum or plasma aspartate aminotransferase measurement (enzymatic activity/volume) 25 U/L 5-34 Serum or plasma alanine aminotransferase measurement (enzymatic activity/volume) 24 U/L 0-55 Serum or plasma protein measurement (mass/volume) 7.2 g/dL 6.4-8.2 Serum or plasma albumin measurement (mass/volume) 3.5 g/dL 3.2-4.5 Magnesium - 12/14/17 20:40 Magnesium 1.6 mg/dL 1.8-2.4 Serum or plasma C reactive protein measurement (mass/volume) - 12/14/17 20:40 Serum or plasma C reactive protein measurement (mass/volume) 2.06 mg/dL 0.00-0.50 Bacterial blood culture - 12/14/17 20:40 Bacterial blood culture NG NRG Complete urinalysis with reflex to culture - 12/14/17 20:50 Urine color determination YELLOW NRG Urine clarity determination CLEAR NRG Urine pH measurement by test strip 5 5-9 Specific gravity of urine by test strip 1.015 1.016-1.022 Urine protein assay by test strip, semi-quantitative [...] sediment leukocyte count by microscopy (number/high power field) [HPF] NRG Bacteria detection in urine sediment [...] culture - 12/14/17 20:50 Bacterial urine culture [id number] NRG COLONY COUNT <10,000 NRG MRSA AGAR MRSA isolated (Screening test for MRSA is positive) NRG FTX;REPORTABLE SENSITIVITY REPORTED 12/16 16:30 NRG CALL POSITIVES (F1 HELP) CALLED TO TUCKER/NURSE AT 1453, 12-16-17/KD NRG Bacterial susceptibility panel - 12/14/17 20:50 Oxacillin susceptibility test by minimum inhibitory concentration >= NRG Gentamicin susceptibility test by minimum inhibitory concentration <= NRG Trimethoprim/sulfamethoxazole susceptibility test by minimum inhibitoryconcentration S NRG Vancomycin susceptibility test by minimum inhibitory concentration <= NRG Levofloxacin susceptibility test by minimum inhibitory [...] Automated erythrocyte mean corpuscular hemoglobin concentration measurement (mass/volume) 33 g/dL 32-36 Automated erythrocyte distribution width ratio 14.4 % 10.0- 14.5 Automated blood platelet count (count/volume) 306 10*3/uL [...] Serum or plasma aspartate aminotransferase measurement (enzymatic activity/volume) 19 U/L 5-34 Serum or plasma alanine aminotransferase measurement (enzymatic activity/volume) 17 U/L 0-55 Serum or plasma protein measurement (mass/volume) 7.1 g/dL 6.4-8.2 Serum or plasma albumin measurement (mass/volume) 3.4 g/dL 3.2-4.5 Complete urinalysis with reflex to culture - 02/16/18 09:30 Urine color determination YELLOW NRG Urine clarity determination CLEAR NRG Urine pH measurement by test strip 6.5 5-9 Specific gravity of urine by test strip 1.015 1.016-1.022 Urine protein assay by test strip, semi-quantitative [...] sediment leukocyte count by microscopy (number/high power field) [HPF] NRG Bacteria detection in urine sediment [...] culture - 02/16/18 09:30 Bacterial urine culture [id number] NRG COLONY COUNT 10,000/ML - 100,000/ML NRG FTX;REPORTABLE SENSITIVITY REPORTED 02/18 16:30 NRG Bacterial susceptibility panel - 02/16/18 09:30 Gentamicin susceptibility test by minimum inhibitory concentration R NRG Vancomycin susceptibility test by minimum inhibitory concentration 1 NRG Levofloxacin susceptibility test by minimum inhibitory concentration >= NRG Tetracycline susceptibility test by minimum inhibitory concentration >= NRG Ampicillin susceptibility test by minimum inhibitory concentration <= NRG Ciprofloxacin susceptibility test by minimum inhibitory concentration R NRG Nitrofurantoin susceptibility test by minimum inhibitory concentration <= NRG Linezolid susceptibility test by minimum inhibitory concentration 2 NRG Bacterial susceptibility panel - 02/16/18 09:30 Oxacillin susceptibility test by minimum inhibitory concentration >= NRG Gentamicin susceptibility test by minimum inhibitory concentration <= NRG Trimethoprim/sulfamethoxazole susceptibility test by minimum inhibitoryconcentration S NRG Vancomycin susceptibility test by minimum inhibitory concentration <= NRG Levofloxacin susceptibility test by minimum inhibitory [...] Automated erythrocyte mean corpuscular hemoglobin concentration measurement (mass/volume) 33 g/dL 32-36 Automated erythrocyte distribution width ratio 16.1 % 10.0- 14.5 Automated blood platelet count (count/volume) 259 10*3/uL [...] Serum or plasma aspartate aminotransferase measurement (enzymatic activity/volume) 17 U/L 5-34 Serum or plasma alanine aminotransferase measurement (enzymatic activity/volume) 23 U/L 0-55 Serum or plasma protein measurement (mass/volume) 7.6 g/dL 6.4-8.2 Serum or plasma albumin measurement (mass/volume) 4.3 g/dL 3.2-4.5 Lipid 1996 panel - 04/01/18 08:36 Serum or plasma triglyceride measurement (mass/volume) 68 mg/dL <150 Serum or plasma cholesterol measurement (mass/volume) 173 mg/dL < 200 Serum or plasma cholesterol in HDL measurement (mass/volume) 68 mg/dL 40-60 Cholesterol in LDL [mass/volume] in serum or plasma by direct assay 90 mg/dL 1-129 Serum or plasma cholesterol in VLDL measurement (mass/volume) 14 mg/dL 5-40 Methicillin resistant Staphylococcus aureus (MRSA) screening culture - 04/01/18 08:36 Methicillin resistant Staphylococcus aureus (MRSA) screening culture NEG NRG Complete urinalysis with reflex to culture - 05/05/18 05:39 Urine color determination YELLOW NRG Urine clarity determination CLEAR NRG Urine pH measurement by test strip 6.5 5-9 Specific gravity of urine by test strip 1.015 1.016-1.022 Urine protein assay by test strip, semi-quantitative [...] sediment leukocyte count by microscopy (number/high power field) [HPF] NRG Bacteria detection in urine sediment [...] Automated erythrocyte mean corpuscular hemoglobin concentration measurement (mass/volume) 34 g/dL 32-36 Automated erythrocyte distribution width ratio 15.4 % 10.0- 14.5 Automated blood platelet count (count/volume) 242 10*3/uL [...] Blood monocytes automated count (number/volume) 1.1 10*3 0.0- 1.0 Automated eosinophil count 0.2 10*3/uL 0.0-0.3 Automated [...] Serum or plasma aspartate aminotransferase measurement (enzymatic activity/volume) 17 U/L 5-34 Serum or plasma alanine aminotransferase measurement (enzymatic activity/volume) 26 U/L 0-55 Serum or plasma protein measurement (mass/volume) 7.1 g/dL 6.4-8.2 Serum or plasma albumin measurement (mass/volume) 3.9 g/dL 3.2-4.5 Blood lactic acid measurement (moles/volume) - 05/05/18 05:50 Blood lactic acid measurement (moles/volume) 1.00 mmol/L 0.50- 2.00 Bacterial blood culture - 05/05/18 05:50 Bacterial blood culture NG NRG Bacterial blood culture - 05/05/18 06:20 Bacterial blood culture NG NRG Complete blood count (CBC) with automated white blood cell (WBC) differential - 09/04/18 11:20 Blood leukocytes automated count (number/volume) 9.3 10*3/uL 4.3-11.0 Blood erythrocytes automated count (number/volume) 4.62 10*6/uL 4.35-5.85 Venous blood hemoglobin measurement (mass/volume) 13.5 g/dL 11.5-16.0 Blood hematocrit (volume fraction) 41 % 35-52 Automated erythrocyte mean corpuscular volume 90 [foz_us] 80-99 Automated erythrocyte mean corpuscular hemoglobin (mass per erythrocyte) 29 pg 25-34 Automated erythrocyte mean corpuscular hemoglobin concentration measurement (mass/volume) 33 g/dL 32-36 Automated erythrocyte distribution width ratio 15.4 % 10.0- 14.5 Automated blood platelet count (count/volume) 300 10*3/uL 130-400 Automated blood platelet mean volume measurement 10.2 [foz_us] 7.4-10.4 Automated blood neutrophils/100 leukocytes 71 % 42-75 Automated blood lymphocytes/100 leukocytes 19 % 12-44 Blood monocytes/100 leukocytes 7 % 0-12 Automated blood eosinophils/100 leukocytes 3 % 0-10 Automated blood basophils/100 leukocytes 0 % 0-10 Blood neutrophils automated count (number/volume) 6.6 10*3 1.8-7.8 Blood lymphocytes automated count (number/volume) 1.7 10*3 1.0-4.0 Blood monocytes automated count (number/volume) 0.7 10*3 0.0- 1.0 Automated eosinophil count 0.3 10*3/uL 0.0-0.3 Automated blood basophil count (count/volume) 0.0 10*3/uL 0.0-0.1 Comprehensive metabolic panel - 09/04/18 11:20 Serum or plasma sodium measurement (moles/volume) 139 mmol/L 135-145 Serum or plasma potassium measurement (moles/volume) 4.9 mmol/L 3.6-5.0 Serum or plasma chloride measurement (moles/volume) 104 mmol/L 98-107 Carbon dioxide 23 mmol/L 21-32 Serum or plasma anion gap determination (moles/volume) 12 mmol/L 5-14 Serum or plasma urea nitrogen measurement (mass/volume) 21 mg/dL 7-18 Serum or plasma creatinine measurement (mass/volume) 0.80 mg/dL 0.60-1.30 Serum or plasma urea nitrogen/creatinine mass ratio 26 NRG Serum or plasma creatinine measurement with calculation of estimated glomerular filtration rate > NRG Serum or plasma glucose measurement (mass/volume) 140 mg/dL 70-105 Serum or plasma calcium measurement (mass/volume) 9.6 mg/dL 8.5-10.1 Serum or plasma total bilirubin measurement (mass/volume) 0.6 mg/dL 0.1-1.0 Serum or plasma alkaline phosphatase measurement (enzymatic activity/volume) 66 U/L 40-136 Serum or plasma aspartate aminotransferase measurement (enzymatic activity/volume) 21 U/L 5-34 Serum or plasma alanine aminotransferase measurement (enzymatic activity/volume) 20 U/L 0-55 Serum or plasma protein measurement (mass/volume) 7.4 g/dL 6.4-8.2 Serum or plasma albumin measurement (mass/volume) 3.9 g/dL 3.2-4.5 CALCIUM CORRECTED 9.7 mg/dL 8.5-10.1 Complete urinalysis with reflex to culture - 09/04/18 11:25 Urine color determination YELLOW NRG Urine clarity determination CLEAR NRG Urine pH measurement by test strip 7 5-9 Specific gravity of urine by test strip 1.010 1.016-1.022 Urine protein assay by test strip, semi-quantitative 3+ NEGATIVE Urine glucose detection by automated test [...] sediment leukocyte count by microscopy (number/high power field) [HPF] NRG Bacteria detection in urine sediment [...] urine sediment by light microscopy RARE VI PHOSPHATE NRG Bacterial urine culture - 09/04/18 11:25 Bacterial urine culture SEE COMMEN NRG COLONY COUNT . NRG Encounters ACCT No. Visit Date/Time Discharge Status Pt. Type Provider Facility Loc./Unit Complaint [id number] 03/18/2015 16:54:00 03/18/2015 23:59:59 CLS Outpatient SHANIQUE VEGA MD [id number] 01/25/2015 09:06:00 01/25/2015 23:59:59 CLS Outpatient SHARIF JOHNSON MD [id number] 12/06/2014 05:51:00 12/06/2014 23:59:59 CLS Outpatient SHANIQUE VEGA MD [id number] 11/26/2014 15:23:00 11/26/2014 23:59:59 CLS Outpatient SHARIF JOHNSON MD [id number] 11/26/2014 15:23:00 11/26/2014 23:59:59 CLS Outpatient SHARIF JOHNSON MD [id number] 11/13/2014 15:20:00 11/13/2014 23:59:59 CLS Outpatient MIKE HAZEL DO [id number] 10/27/2014 13:31:00 10/27/2014 23:59:59 CLS Outpatient MASSIEL VEGA [id number] 09/15/2014 16:03:00 09/15/2014 23:59:59 CLS Outpatient SHARIF JOHNSON MD [id number] 08/17/2014 15:49:00 08/17/2014 23:59:59 CLS Outpatient SHARIF JOHNSON MD [id number] 07/29/2014 10:54:00 07/29/2014 23:59:59 CLS Outpatient JOVANNI BURGOSDESI [id number] 07/02/2014 11:34:00 07/02/2014 23:59:59 CLS Outpatient SHARIF JOHNSON MD [id number] 06/18/2014 14:51:00 06/18/2014 23:59:59 CLS Outpatient SHARIF JOHNSON MD [id number] 06/02/2014 14:58:00 06/02/2014 23:59:59 CLS Outpatient JOVANNI BURGOSDESI [id number] 05/18/2014 14:07:00 05/18/2014 23:59:59 CLS Outpatient SHARIF JOHNSON MD [id number] 03/24/2014 15:01:00 03/24/2014 23:59:59 CLS Outpatient SHARIF JOHNSON MD [id number] 03/11/2014 13:43:00 03/11/2014 23:59:59 CLS Outpatient SHARIF JOHNSON MD [id number] 01/28/2014 14:29:00 01/28/2014 23:59:59 CLS Outpatient SHARIF JOHNSON MD [id number] 01/28/2014 14:29:00 01/28/2014 23:59:59 CLS Outpatient SHARIF JOHNSON MD [id number] 01/13/2014 15:39:00 01/13/2014 23:59:59 CLS Outpatient CAROLINE MENDOZA MD [id number] 01/13/2014 15:39:00 01/13/2014 23:59:59 CLS Outpatient CAROLINE MENDOZA MD [id number] 12/15/2013 15:34:00 12/15/2013 23:59:59 CLS Outpatient MIKE HAZEL DO [id number] 12/15/2013 15:34:00 12/15/2013 23:59:59 CLS Outpatient MAX DHILLON APRN [id number] 12/11/2013 11:52:00 12/11/2013 23:59:59 CLS Outpatient MAX DHILLON APRN [id number] 11/12/2013 16:30:00 11/12/2013 23:59:59 CLS Outpatient SHAHNAZ MARQUEZ APRN [id number] 11/09/2013 12:50:00 11/09/2013 23:59:59 CLS Outpatient AUDIE MARC APRN [id number] 11/03/2013 09:32:00 11/03/2013 23:59:59 CLS Outpatient DESI BAIG APRN [id number] 10/20/2013 09:44:00 10/20/2013 23:59:59 CLS Outpatient DESI BAIG APRN [id number] 09/22/2013 14:05:00 09/22/2013 23:59:59 CLS Outpatient CAROLINE MENDOZA MD [id number] 09/08/2013 08:20:00 09/08/2013 23:59:59 CLS Outpatient CAROLINE MENDOZA MD [id number] 08/31/2013 08:05:00 08/31/2013 23:59:59 CLS Outpatient CAROLINE MENDOZA MD [id number] 08/07/2013 11:43:00 08/07/2013 23:59:59 CLS Outpatient MARIA DE JESUS BUTLER DO [id number] 01/22/2013 09:37:00 01/22/2013 23:59:59 CLS Outpatient MARIA DE JESUS BUTLER DO [id number] 01/15/2013 10:49:00 01/15/2013 23:59:59 CLS Outpatient CAROLINE MENDOZA MD [id number] 01/15/2013 10:49:00 01/15/2013 23:59:59 CLS Outpatient CAROLINE MENDOZA MD [id number] 12/23/2012 13:28:00 12/23/2012 23:59:59 CLS Outpatient MARIA DE JESUS BUTLER DO [id number] 11/24/2012 14:22:00 11/24/2012 23:59:59 CLS Outpatient MIKE HAZEL DO [id number] 11/14/2012 13:45:00 11/14/2012 23:59:59 CLS Outpatient MIKE HAZEL DO [id number] 10/24/2012 13:17:00 10/24/2012 23:59:59 CLS Outpatient SHANIQUE VEGA MD [id number] 10/24/2012 13:17:00 10/24/2012 23:59:59 CLS Outpatient [id number] 10/21/2012 10:34:00 10/21/2012 23:59:59 CLS Outpatient [id number] 09/11/2012 11:29:00 09/11/2012 23:59:59 CLS Outpatient MARIA DE JESUS BUTLER DO [id number] 07/27/2013 11:07:00 Document Registration [id number] 07/02/2013 08:45:00 Document Registration [id number] 07/01/2013 11:44:00 Document Registration [id number] 07/01/2013 11:44:00 Document Registration [id number] 06/05/2013 08:35:00 Document Registration [id number] 05/13/2013 09:45:00 Document Registration [id number] 05/06/2013 10:52:00 Document Registration [id number] 04/21/2013 11:00:00 Document Registration [id number] 03/13/2013 11:19:00 Document Registration [id number] 04/06/2019 10:26:00 04/06/2019 23:59:59 CLS Outpatient SHAHNAZ MARQUEZ BRIDGE SAW OPERATOR [facility] RAD R05 COUGH [id number] 09/04/2018 11:17:00 09/04/2018 15:02:00 DIS Emergency JENNIFER EGAN [facility] ER PAIN AROUND CATH [id number] 05/05/2018 05:12:00 05/05/2018 10:27:00 DIS Emergency JUAREZ DAWSON MD [facility] ER BACK PAIN [id number] 04/10/2018 13:32:00 04/10/2018 23:59:59 CLS Outpatient RAFIQ CAMPOVERDE BRIDGE SAW OPERATOR [facility] RAD ABDOMINAL AORTIC ANEURYSM, ILIAC ANEURYSYM [id number] 04/01/2018 07:46:00 04/01/2018 14:20:00 DIS Outpatient BISHNU ROLDAN FACC, CHELLE WALTERS CCDS [facility] CATH PERIPHERAL ANGIOGRAPHY [id number] 03/12/2018 09:18:00 03/12/2018 23:59:59 CLS Outpatient MARCIA LUI MD [facility] CARD PREOP Z01.810 Z01.818 [id number] 03/05/2018 08:57:00 03/05/2018 23:59:59 CLS Outpatient BISHNU ROLDAN FACCCHELLE FACP CCDS [facility] CARD SOB [id number] 02/16/2018 10:58:00 02/16/2018 23:59:59 CLS Outpatient SHANIQUE VEGA MD [facility] CVS UTI [id number] 02/10/2018 10:54:00 02/10/2018 23:59:59 CLS Outpatient MARCIA LUI MD [facility] CARD CAROTID ARTERY STENOSIS,BILATERAL [id number] 12/23/2017 10:16:00 12/23/2017 23:59:59 CLS Outpatient MARCIA ULI MD [facility] CARD Z01.810,Z01.818 [id number] 2017 20:15:00 2017 22:55:00 DIS Emergency GREGORY ROLDAN, JESSICA Adhikari [facility] ER WENT UNRESPONSIVE,HIT HEAD, VCV [id number] 12/02/2017 07:48:00 12/02/2017 23:59:59 CLS Outpatient SATHISH ABAD [facility] RAD I65.23 [id number] 11/26/2017 21:20:00 11/27/2017 11:41:00 DIS Inpatient PRUDENCE SHAW MD [facility] 4TH UROSEPSIS,ABDOMINAL PAIN,FEVER [id number] 11/26/2017 07:18:00 11/26/2017 15:18:00 DIS Outpatient LUL NORWOOD MD [facility] SDC INCONTINENCE,RETENTION [id number] 11/25/2017 13:20:00 11/25/2017 23:59:59 CLS Outpatient SATHISH ABAD [facility] RAD CAROTID ARTERY STENOSIS [id number] 11/19/2017 05:29:00 11/19/2017 14:39:00 DIS Outpatient LUL NORWOOD MD [facility] PREOP INCONTINENCE,RETENTION [id number] 11/04/2017 05:57:00 11/04/2017 23:59:59 CLS Outpatient LUL NORWOOD MD [facility] PREOP INCONTINENCE,RETENTION [id number] 10/15/2017 07:43:00 10/15/2017 23:59:59 CLS Outpatient BISHNU ROLDAN FACC, ALI FACP CCDS [facility] RAD AAA [id number] 10/15/2017 07:43:00 10/15/2017 14:13:00 DIS Outpatient BISHNU ROLDAN FACC, ALI FACP CCDS [facility] CATH AAA,CAD,PAF,HTN [id number] 10/08/2017 07:01:00 10/08/2017 23:59:59 CLS Outpatient BISHNU ROLDAN FACC, ALI FACP CCDS [facility] CARD R06.02 SOB [id number] 10/04/2017 13:16:00 10/04/2017 23:59:59 CLS Outpatient BISHNU ROLDAN FACC, ALI FACP CCDS [facility] CARD SOB [id number] 10/04/2017 07:15:00 10/04/2017 23:59:59 CLS Preadmit BISHNU ROLDAN FACC, ALI FACP CCDS [facility] CARD SOB [id number] 02/12/2017 05:56:00 02/12/2017 11:40:00 DIS Outpatient LUL NORWOOD MD [facility] OAB [id number] 02/06/2017 09:39:00 02/06/2017 13:57:00 DIS Outpatient LUL NORWOOD MD [facility] PREOP OAB [id number] 11/27/2016 06:58:00 11/28/2016 16:00:00 DIS Outpatient LUL NORWOOD MD [facility] ISD [id number] 11/22/2016 10:00:00 11/22/2016 13:00:00 DIS Outpatient LUL NORWOOD MD [facility] PREOP ISD [id number] 05/14/2016 15:45:00 05/16/2016 13:05:00 DIS Inpatient VALERIA ROLDAN, PRUDENCE Garcia [facility] 4TH R SIDE ABD PAIN, N/V,LEUKOCYTOSIS [id number] 12/07/2015 07:47:00 12/07/2015 09:30:00 DIS Emergency TARA SOTO MD [facility] ER RT HIP PAIN [id number] 03/10/2015 11:28:00 03/15/2015 12:00:00 DIS Inpatient SHARIF JOHNSON MD [facility] CSD CHF HYPOKALEMIA FALLS THYROID DYSFUNCTION [id number] 02/27/2015 21:37:00 02/28/2015 13:30:00 DIS Inpatient SHANIQUE VEGA MD [facility] SURGICAL ALTERED MENTAL STATUS UTI [id number] 02/25/2015 03:44:00 02/25/2015 06:24:00 DIS Emergency EUNICE ROLDAN, JUAREZ Powell [facility] ER FALL,BUMP ON LFT SIDE OF HEAD [id number] 02/03/2015 17:50:00 02/24/2015 16:55:00 DIS Inpatient SASHA ROLDAN, MYRNA Mc [facility] IRF DEBILITY [id number] 12/28/2014 09:10:00 12/28/2014 17:30:00 DIS Outpatient BISHNU ROLDAN FACC, CHELLE WALTERS CCDS [facility] CATH CAD FATIGUE LOWER EXTREMITY DISCOMFORT [id number] 12/24/2014 13:00:00 12/24/2014 23:59:59 CLS Outpatient SHANIQUE VEGA MD [facility] HH POSSIBLE UTI [id number] 12/20/2014 20:00:00 12/20/2014 23:59:59 CLS Preadmit WILL CASPER DO [facility] SLEEP ARRHYTHMIAS,MOOD DISORDER,HYPOXIA [id number] 12/03/2014 09:58:00 12/03/2014 10:47:00 DIS Outpatient DIANNA MACHADO MD [facility] CARD HIP OSTEOARTHRITIS [id number] 12/02/2014 09:45:00 12/02/2014 23:59:59 CLS Preadmit ELIZABETH ROLDAN, SHARIF Menjivar [facility] RAD NAUSEA,UNABLE TO TOLERATE SOLID FOODS [id number] 11/22/2014 14:15:00 11/22/2014 23:59:59 CLS Preadmit PENNIEWILL ELISE DO [facility] RT HYPOXIA DYPSNEA [id number] 11/11/2014 11:54:00 11/11/2014 14:00:00 DIS Emergency EMANUEL WILKINSON MD [facility] ER NAUSEA [id number] 11/04/2014 17:27:00 11/05/2014 11:35:00 DIS Inpatient GARY ROLDAN, SHANIQUE Funk [facility] 4TH UTI,GENERAL MALAISE [id number] 11/01/2014 22:05:00 11/02/2014 16:45:00 DIS Inpatient MIKE HAZEL DO [facility] 4TH UTI,ALTERED MENTAL STATUS [id number] 09/25/2014 11:09:00 09/25/2014 23:59:59 CLS Outpatient [id number] 08/23/2014 12:50:00 08/23/2014 23:59:59 CLS Outpatient DIANNA MACHADO MD [facility] CARD HIP OSTEOARTHRITIS [id number] 08/02/2014 10:32:00 08/02/2014 23:59:59 CLS Outpatient ANDRE HERNANDEZ DO [facility] RAD SHOULDER PAIN [id number] 07/23/2014 08:50:00 07/23/2014 23:59:59 CLS Outpatient DIANNA MACHADO MD [facility] CARD SIJD [id number] 06/28/2014 12:46:00 06/28/2014 14:24:00 DIS Outpatient DIANNA MACHADO MD [facility] CARD HIP OSTEOARTHRITIS [id number] 06/07/2014 12:24:00 06/07/2014 14:09:00 DIS Emergency RUFINA PEREZ DO [facility] ER LEFT SHOULDER INJURY [id number] 05/24/2014 12:58:00 05/24/2014 13:45:00 DIS Outpatient DIANNA MACHADO MD [facility] CARD HIP OSTEOARTHRITIS [id number] 12/22/2013 12:42:00 12/22/2013 23:59:59 CLS Outpatient JACQUIE MAX Powell DE [facility] CARD HEART MURMUR LOWER EXT EDEMA [id number] 11/12/2013 18:13:00 11/14/2013 14:30:00 DIS Inpatient ELIZABETH ROLDAN, SHARIF Menjivar [facility] 4TH COPD EXACERBATION [id number] 07/02/2013 11:37:00 07/09/2013 12:50:00 DIS Inpatient GARY ROLDAN, SHANIQUE Funk [facility] 4TH COPD,EXACERBATION [id number] 07/02/2013 11:06:00 07/02/2013 23:59:59 CLS Emergency [id number] 06/11/2013 09:24:00 06/11/2013 23:59:59 CLS Outpatient REJI ROLDAN, CAROLINE Magaña [facility] RAD CHRONIC LOW BACK PAIN WITH RADICULOPATHY [id number] 02/17/2015 16:12:00 Document Registration [id number] 02/17/2015 16:12:00 Document Registration [id number] 02/17/2015 16:12:00 Document Registration [id number] 02/17/2015 16:12:00 Document Registration [id number] 09/30/2012 14:20:00 Document Registration [id number] 07/01/2012 14:08:00 Document Registration [id number] 03/11/2012 14:34:00 Document Registration [id number] 10/17/2011 15:30:00 Document Registration [id number] 10/09/2011 15:24:00 Document Registration [id number] 10/06/2011 09:02:00 Document Registration [id number] 07/30/2011 17:25:00 Document Registration [id number] 07/17/2011 16:12:00 Document Registration
[2019-04-16] MEDS ORDERED: CATHETER FLUSH 10 ML SYR IV PRN ×2 (17:00→19:00)
[2019-04-16] MEDS ORDERED: HOLD METFORMIN - RECEIVED CONTRAST 20 ML VIAL IV SCH (17:00)
[2019-04-16] MEDS ORDERED: IOHEXOL 350 MG/ML 100 ML (OMNIPAQUE 350) VIAL IV ONE (17:00)
[2019-04-16] MEDS ORDERED: NS 100 ML (IVPB) BAG IV ONE (17:00)
--- NOTE | 2019-04-16 17:08 | Diagnostic Imaging Report ---
INDICATION: Fever and black stools. EXAMINATION: Frontal chest obtained at 04:53 p.m. and is compared to 04/06/2019. FINDINGS: There is poststernotomy change. The heart is moderately enlarged. There are chronic-appearing increased interstitial markings which are similar to the prior study. There is no new infiltrate or pneumothorax or pleural fluid. IMPRESSION: Cardiomegaly with chronic-appearing increased interstitial markings and mild central vascular congestion. No new consolidation or pleural fluid. Dictated by: Dictated on workstation # [id number]
--- OUTSIDE RECORDS SUMMARY | 2019-04-16 17:14 | XMS REPORT | Clinical Summary ---
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 If you d o not see the information that you expected, contact Release of Information in [facility] [employer] Information Management department at [phone] for further assistan ce in locating additional records.[facility] Allergies Comments Active Allergy Reactions Severity Noted [...] Overview: Added automatically from request for surgery [id number] Mixed stress and urge urinary incontinence 03/20/2017 Overview: Longstanding hx of JOE (UUI>MAXWELL), OAB, ISD, urinary retention who is s/p PVS (Solyx) by Dr. Andrews on 11/27/16; Macroplastique injection 02/12/17. Trailed [facility] Amos without success. 03/20/17 - [facility] [employer] eval with Dr. Carlisle. Still with JOE [...] Taken Vital Sign Reading 09/27/2017 10:47 AM [employer]PAR[employer] Blood Pressure 178/94 09/27/2017 10:47 AM [employer] Pulse 77 09/27/2017 10:47 AM [employer] Temperature 36.6 C (97.9 F) - Respiratory Rate - 09/27/2017 10:47 AM [employer] Oxygen Saturation 96% - Inhaled Oxygen - Concentration 09/27/2017 10:47 AM [employer] Weight 77.2 kg (170 lb 3.2 oz) 09/27/2017 10:47 AM [employer] Height 157.5 cm (5' 2") 09/27/2017 10:47 AM [employer] Body Mass Index 31.13 Plan of Treatment [...] Medicaid [employer] [place] [employer] xxxxxxxxxxx 2010- [facility] Present HEALTH Advance Directives Patient has advance care planning documents on file. For more information, blanka talamantes contact: [facility] [address] [place] [address]
--- NOTE | 2019-04-16 17:17 | Diagnostic Imaging Report ---
PROCEDURE: CT abdomen and pelvis with contrast. TECHNIQUE: Multiple contiguous axial images were obtained through the abdomen and pelvis after administration of intravenous contrast. Auto Exposure Controls were utilized during the CT exam to meet ALARA standards for radiation dose reduction. INDICATION: Tarry stools with nausea, vomiting, and hypotension. Patient also has weakness and pale skin. COMPARISON: Comparison made with prior examination from 09/04/2018. FINDINGS: The lung bases are clear. The liver is normal in size. There is a tiny benign hepatic cyst. Gallbladder is unremarkable. There is no biliary ductal dilatation. Spleen is normal. The pancreas and adrenal glands are unremarkable. There are small bilateral renal cysts. The aorta demonstrates some atherosclerotic calcification. There is a 4.2 cm infrarenal abdominal aortic aneurysm. The bowel gas pattern is nonspecific. There is midline anterior abdominal wall hernia containing omental fat. There is no ascites. There is no free air. There are no focal inflammatory changes. A suprapubic catheter is in place. There is an unchanged mild compression fracture deformity of the L3 vertebral body. There is otherwise moderate thoracolumbar spondylosis. IMPRESSION: 1. Small hepatic and renal cysts. 2. 4.2 cm infrarenal abdominal aortic aneurysm. 3. Midline anterior abdominal wall hernia containing only omental fat. 4. No other acute abnormality in the abdomen or pelvis. Dictated by: Dictated on workstation # [id number]
--- NOTE | 2019-04-16 17:50 | NUR ---
JULES REYES admitted to room CU8-1, with an admitting diagnosis of GI BLEED, ACUTE BLOOD LOSS ANEMIA W/ SHOCK, UTI, on 04/16/19 from ER via STRETCHER, accompanied by STAFF.JULES REYES introduced to surroundings, call light, bed controls, phone, TV, temperature control, lights, meal times, smoking policy, visitor policy, side rail policy, bathrooms and showers. Patient Rights given to patient in the handbook. JULES REYES verbalizes understanding that [facility] is not responsible for the loss or damage to any personal effects or valuables that are kept in the patients posession during their hospitalization. The following Patient Care Plans were discussed with the PT: Discharge Planning, PAIN,ANXIETY, and FLUID VOLUME DEFICIT. JULES REYES verbalizes understanding of Interdisciplinary Patient Education. Patient and family were informed about the Rapid Response Team and its purpose.
--- NOTE | 2019-04-16 18:37 | Consultation-Cardiology ---
HPI-Cardiology Cardiology Consultation: Date of Consultation 04/16/19 Time Seen by a Provider: 17:45 Date of Admission Attending Physician Arminda Marcelo MD Admitting Physician Itz Chacon MD Consulting Physician CHELLE GOETZ MD, MA, FACP, FACC, FSCAI, CCDS HPI: Chief Complaint: Reason for consultation: Hypotension, abnormal ECG Ms. Barnes is an 83 year old female. I have seen her in the ED. She is a poor historian, no family is at the bedside. She reports for approx the last 24 hours she has been having abdominal discomfort. She states she woke up early yesterday morning with diarrhea and vomiting. She reports it was "black as tar". She states she felt dizzy and weak. She reports she continues to feels weak. She denies any c/o palpitations. She has chronic dyspnea which has been worse lately. She denies any syncope. Review of Systems-Cardiology Review of Systems Constitutional: No chills, No fever; malaise Eyes: No vision change Ears/Nose/Throat: No epistaxis, No recent hearing loss, No ulcerations Respiratory: As described under HPI Cardiovascular: As described under HPI Gastrointestinal: As described under HPI Genitourinary: other (indwelling urinary catheter) Musculoskeletal: joint pain (chronic) Skin: No rash, No ulcerations Psychiatric/Neurological: No seizure, No focal weakness, No syncope Hematologic: easy bleeding, easy bruising HKT-Ajipas-Bnkfgv Hx Patient Social History Alcohol Use: Denies Use Recreational Drug Use: No Smoking Status: Former Smoker Former smoker/When Quit: Feb 03, 2013 Type Used: Cigarettes 2nd Hand Smoke Exposure: No Recent Foreign Travel: No Recent Infectious Disease Expo: No Hospitalization with Isolation: Denies Immunizations Up To Date Tetanus Booster (TDap): Unknown Date of Pneumonia Vaccine: Sep 05, 2014 Date of Influenza Vaccine: Aug 19, 2017 Past Medical History PMH As described under Assessment. Family Medical History Family Medical History: She reports fam history of NC and heart disease and hypertension and stroke, but is unable to provide details Family History: Cancer 09 SISTER Cancer of colon Cataract 03 MOTHER, Onset:Unknown Family history: Allergy 03 FATHER, Onset:Unknown 03 MOTHER, Onset:Unknown Family history: Arthritis 03 FATHER, Onset:Unknown 03 MOTHER, Onset:Unknown 09 SISTER, Onset:Unknown Family history: Cardiovascular disease 03 FATHER, Onset:Unknown 03 MOTHER, Onset:Unknown 09 BROTHER, Onset:Unknown 09 SISTER, Onset:Unknown Family history: Diabetes mellitus 03 MOTHER, Onset:Unknown Family history: Gastrointestinal disease 03 FATHER, Onset:Unknown Family history: Hypertension 03 MOTHER, Onset:Unknown Family history: Osteoporosis 03 MOTHER, Onset:Unknown Hearing loss 03 FATHER, Onset:Unknown Heart disease 03 FATHER, Onset:Unknown 03 MOTHER, Onset:Unknown 09 BROTHER, Onset:Unknown Hypercholesterolemia 03 MOTHER, Onset:Unknown Malignant neoplasm of lung 09 SISTER, Onset:Unknown Myocardial infarction 09 BROTHER, Onset:Unknown Parkinson's disease Stroke 03 FATHER, Onset:Unknown Thyroid disease No Family History of: Abdominal aortic aneurysm [place]'s disease Alcoholism Aphasia Chest pain Congenital heart disease Congestive heart failure Cystic fibrosis Dementia Dysphagia Family history: Alzheimer's disease Family history: Asthma Family history: Breast disease Family history: Coronary thrombosis Family history: Glaucoma Family history: Thyroid disorder Headache Hereditary disease History of - anemia History of - disorder History of - respiratory disease History of drug abuse Human immunodeficiency virus (HIV) seropositivity Infertile Kidney disease Prostate cancer Psychotic disorder Seizure disorder Tuberculosis Visual impairment Allergies and Home Medications Allergies Coded Allergies: Sulfa (Sulfonamide Antibiotics) (Verified Allergy, Unknown, 04/16/19) diphenhydramine HCl (Verified Allergy, Unknown, 04/16/19) hydrochlorothiazide (Unverified Allergy, Unknown, 04/16/19) varenicline tartrate (Verified Allergy, Unknown, 04/16/19) Home Medications Acetaminophen 325 Mg Tablet, 650 MG PO Q4H PRN for PAIN-MILD, (Reported) Acetaminophen 325 Mg Tablet, 325 MG PO TID, (Reported) Albuterol Sulfate 8.5 Gm Hfa.aer.ad, 1 PUFF IH Q4H PRN for SHORTNESS OF BREATH, (Reported) Albuterol Sulfate 1 Puff Puff, 2 PUFF IH Q6H PRN for SHORTNESS OF BREATH, (Reported) 1 PUFF = 90 MCG Apixaban 5 Mg Tablet, 5 MG PO BID, (Reported) Aspirin 81 Mg Tab.chew, 81 MG PO DAILY, (Reported) Atorvastatin Calcium 40 Mg Tablet, 40 MG PO HS, (Reported) Budesonide/Formoterol Fumarate 10.2 Gm Hfa.aer.ad, 2 PUFF IH BID, (Reported) Bupropion HCl 300 Mg Tab.er.24h, 300 MG PO HS, (Reported) Cephalexin 500 Mg Capsule, 500 MG PO QID Prescribed by: JUAREZ CLAY on 05/05/18941 Escitalopram Oxalate 20 Mg Tablet, 20 MG PO DAILY, (Reported) Estradiol 42.5 Gm Cream.appl, 1.25 GM VG PRN PRN for UTI PROPHYLAXIS, (Reported) Furosemide 20 Mg Tablet, 20 MG PO Q48H, (Reported) Gabapentin 400 Mg Capsule, 400 MG PO TID, (Reported) Hydrocodone/Acetaminophen 1 Each Tablet, 1 EACH PO Q6H PRN for PAIN-MODERATE Prescribed by: JENNIFER OCHOA on 09/04/18 142 Lorazepam 0.5 Mg Tablet, 0.5 MG PO DAILY, (Reported) Metformin HCl 500 Mg Tablet, 500 MG PO DAILY, (Reported) TAKE WITH A MEAL Metoprolol Tartrate 50 Mg Tablet, 50 MG PO BID, (Reported) Nitrofurantoin Monohyd/M-Cryst 100 Mg Capsule, 1 TAB PO BID Prescribed by: JENNIFER OCHOA on 09/04/181421 Ondansetron HCl 4 Mg Tablet, 4 MG PO Q6H PRN for NAUSEA/VOMITING-1ST LINE, (Reported) Oxycodone HCl/Acetaminophen 1 Each Tablet, 1 EACH PO Q4H PRN for PAIN-MODERATE TO SEVERE Prescribed by: JUAREZ CLAY on 05/05/18941 Phenazopyridine HCl 200 Mg Tablet, 1 TAB PO TID Prescribed by: JENNIFER OCHOA on 09/04/181421 Polyethylene Glycol 3350 17 Gm Powd.pack, 17 GM PO PRN PRN for CONSTIPATION-1ST LINE, (Reported) Potassium Chloride 20 Meq Tab.er.prt, 40 MEQ PO Q48H, (Reported) TAKES 2 (20MEQ) TABLETS EVERY OTHER DAY WITH FUROSEMIDE Tamsulosin HCl 0.4 Mg Cap, 0.4 MG PO DAILY, (Reported) Tramadol HCl 50 Mg Tablet, 50 MG PO TID, (Reported) Trazodone HCl 50 Mg Tablet, 25 MG PO HS, (Reported) Patient Home Medication List Home Medication List Reviewed: Yes Physical Exam-Cardiology Physical Exam Vital Signs/I&O 04/16/19 04/16/19 04/16/19 04/16/19 15:11 15:11 15:45 15:58 Temp 99.4 99.4 Pulse 133 133 Resp 28 28 B/P (MAP) 95/59 95/59 (71) Pulse Ox 97 97 100 O2 Delivery Nasal Cannula O2 Flow Rate 2.00 FiO2 100 04/16/19 04/16/19 04/16/19 04/16/19 17:08 17:23 17:43 18:16 Temp 99.0 98.5 98.5 Pulse 107 107 107 118 Resp 18 18 18 B/P (MAP) 102/47 101/55 101/55 (70) Pulse Ox 98 99 99 O2 Delivery Nasal Cannula Nasal Cannula Nasal Cannula O2 Flow Rate 2.00 2.00 2.00 04/16/19 18:20 Temp 97.9 Capillary Refill : Less Than 3 Seconds Constitutional: AAO x 3, well-developed, well-nourished HEENT: PERRL, hard of hearing, oral hygience is good Neck: carotid bruit, carotid pulses are 2 + bilaterally Respiratory: No accessory muscle use, No respiratory distress; rhonchi (scattered), other (SOB with conversation) Cardiovascular: irregularly irregular; No JVD; tachycardia, S1 and S2, systolic murmur Gastrointestinal: tender, audible bowel sounds (hyperactive) Extremities: no lower extremity edema bilateral Neurologic/Psychiatric: grossly intact Skin: normal color, warm/dry Data Review Labs Laboratory Tests 04/16/19 15:20: White Blood Count 22.4H, Red Blood Count 2.48L, Hemoglobin 7.5L, Hematocrit 23L, Mean Corpuscular Volume 93, Mean Corpuscular Hemoglobin 30, Mean Corpuscular Hemoglobin Concent 33, Red Cell Distribution Width 14.9H, Platelet Count 283, Mean Platelet Volume 10.4, Neutrophils (%) (Auto) 75, Lymphocytes (%) (Auto) 17, Monocytes (%) (Auto) 7, Eosinophils (%) (Auto) 0, Basophils (%) (Auto) 0, Neutrophils # (Auto) 16.8H, Lymphocytes # (Auto) 3.8, Monocytes # (Auto) 1.7H, Eosinophils # (Auto) 0.1, Basophils # (Auto) 0.0, Neutrophils % (Manual) 71, Lymphocytes % (Manual) 20, Monocytes % (Manual) 7, Eosinophils % (Manual) 0, Basophils % (Manual) 0, Band Neutrophils 2, Polychromasia SLIGHT, Anisocytosis SLIGHT, Prothrombin Time 18.9H, INR Comment 1.5H, Activated Partial Thromboplast Time 31, Sodium Level 135, Potassium Level 4.6, Chloride Level 105, Carbon Dioxide Level 21, Anion Gap 9, Blood Urea Nitrogen 56H, Creatinine 0.75, Estimat Glomerular Filtration Rate > 60, BUN/Creatinine Ratio 75, Glucose Level 164H, Lactic Acid Level 2.64*H, Calcium Level 7.9L, Corrected Calcium 8.8, Magnesium Level 1.8, Total Bilirubin 0.2, Aspartate Amino Transf (AST/SGOT) 15, Alanine Aminotransferase (ALT/SGPT) 12, Alkaline Phosphatase 42, Troponin I < 0.028, Total Protein 4.9L, Albumin 2.9L 04/16/19 16:12: Urine Color YELLOW, Urine Clarity VERY CLOUDYH, Urine pH 6.5, Urine Specific [place] 1.020, Urine Protein 2+H, Urine Glucose (UA) NEGATIVE, Urine Ketones NEGATIVE, Urine Nitrite POSITIVEH, Urine Bilirubin NEGATIVE, Urine Urobilinogen NORMAL, Urine Leukocyte Esterase 3+H, Urine RBC (Auto) 1+H, Urine RBC 0-2, Urine WBC 10-25H, Urine Squamous Epithelial Cells 10-25H, Urine Crystals PRESENTH, Urine Amorphous Sediment LARGE VI URATESH, Urine Bacteria LARGEH, Urine Casts NONE, Urine Mucus NEGATIVE, Urine Culture Indicated CULTURE PENDING 04/16/19 17:40: Lactic Acid Level 1.81 A/P-Cardiology Assessment/Admission Diagnosis GI bleed with hypovolemic shock Suspected UTI with possible sepsis Severe bilateral ICA stenoses; s/p R CEA with Dr Valenzuela at [facility] in Dec 2017; s/p L carotid PCI at [facility] in January 2018 (Dr Valenzuela) Chronic dyspnea likely multi-factorial: COPD and diastolic dysfunction and physical deconditioning. Prolonged hospitalization post-CABG for physical deconditioning in 2014 Atrial fibrillation/flutter of unknown duration, first documented on an ECG of 09/27/17 at [facility] Xochilt for stroke prophylaxis - hold for now H/o old lacunar infarction, including R internal capsule (based on w/u of Dec [address] [facility]) S/P right hip replacement Fall due to loss of balance (tripped over walker), no syncope, on 03/10/15 Acute on chronic diastolic CHF on 03/10/15 CAD - s/p [address] Maza at [facility] in : GREY to LAD, SVG to OM1 and SVG to PDA. Cardiac cath of Oct 15, 2017 (done following an MPI that showed apical ischemia) showed widely patent aortocoronary graft to the distal RCA, widely patent aortocoronary graft to OM system, widely patent left internal mammary artery graft to the distal LAD, normal to hyperdynamic LV systolic function with an ejection fraction of approx 70%, normal LVEDP, no evdence of thoracic arotic aneurysm or dissection, mod-sized infrarenal abdomina l aortic aneurysm, mild prox stenosis of the left renal artery. For which she has been maintained on ASA and Plavix Peripheral angiogram with runoffs of March 2018: Moderate-sized, infrarenal, saccular abdominal aortic aneurysm. A 70% ostial and proximal stenoses of the renal arteries on both sides. 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 Proximal occlusion of the right superficial femoral artery which reconstitutes via collaterals in its distal portion. There is a 2- vessel runoff in the leg. Multiple up to 75% stenoses in the mid and distal portions of the left superficial femoral artery. For these findings she was refe rred to [facility] Echo of 03/05/18 showed LVEF 75-80%, grade 3 mcqueen dysfunction, PASP 45 mmHg, mod biatrial enlartgement, AoV sclerosis, and mild to mod TR COPD Tobaccoism, quit 2009 HTN H/o hypothyroidism that is followed by her fam phy S/P suprapubic catheter placement per Dr. James on 11-26-2017 Discussion and Recomendations * Complex management issue due to multiple comorbidities * Replenish blood and fluid volume * Identify source of bleeding and treat that. Hold antiplatelet agents and anticoag until then. Resume these when source of bleed fully treated. We advise this be done expediently * Hold bp-lowering meds * Probable UTI with suspected sepsis - management per Medical Services * Monitor lab closely * Further recs will be based on her hospital course * We would like to thank [facility] Services for this consult Clinical Quality Measures DVT/VTE Risk/Contraindication: Risk Factor Score Per Nursin RFS Level Per Nursing on Admit: 4+=Very High BISHNU,ALI MD FACP FAC CCDS April 16, 2019 18:37
--- NOTE | 2019-04-16 18:44 | Consultation (Surgery) ---
History of Present Illness History of Present Illness Patient Consulted On(brett/time) 04/16/19 18:39 Time Seen by Provider: 16:01 History of Present Illness Surgery asked to consult regarding GI bleed, anemia and hypotension. HPI per ED: The patient presents to ER by EMS with chief complaint of 2-3 days of black tarry diarrhea and vomiting black emesis. She was seen this morning at the clinic and labs were drawn demonstrating that from 3 months ago her hemoglobin from 13.5 down to 8.7. She is on Eliquis and that she's had a colonoscopy years ago she does not recall anything wrong with it. She is having mild abdominal distress and was given 4 mg Zofran and started a liter of saline on route because her blood pressure was in the 80s systolic. She is tachycardic in the 120 to 1:30 range. She denies a history of atrial fibrillation. She has a white count of 20,000 per report from the clinic and her chemistry panel is okay except for an elevated BUNs of 66. The patient is a full code. When I spoke to pt she was mainly complaining of anxiety and worried about "am I gonna make it?" She states she has never had this problem before. She was having a little bit of abdominal pain in the lower abdomen. She states she has never had an upper endoscopy. Pain is not really radiating anywhere. Allergies and Home Medications Allergies Coded Allergies: Sulfa (Sulfonamide Antibiotics) (Verified Allergy, Unknown, 04/16/19) diphenhydramine HCl (Verified Allergy, Unknown, 04/16/19) hydrochlorothiazide (Unverified Allergy, Unknown, 04/16/19) varenicline tartrate (Verified Allergy, Unknown, 04/16/19) Home Medications Acetaminophen 325 Mg Tablet, 650 MG PO Q4H PRN for PAIN-MILD, (Reported) Acetaminophen 325 Mg Tablet, 325 MG PO TID, (Reported) Albuterol Sulfate 8.5 Gm Hfa.aer.ad, 1 PUFF IH Q4H PRN for SHORTNESS OF BREATH, (Reported) Albuterol Sulfate 1 Puff Puff, 2 PUFF IH Q6H PRN for SHORTNESS OF BREATH, (Reported) 1 PUFF = 90 MCG Apixaban 5 Mg Tablet, 5 MG PO BID, (Reported) Aspirin 81 Mg Tab.chew, 81 MG PO DAILY, (Reported) Atorvastatin Calcium 40 Mg Tablet, 40 MG PO HS, (Reported) Budesonide/Formoterol Fumarate 10.2 Gm Hfa.aer.ad, 2 PUFF IH BID, (Reported) Bupropion HCl 300 Mg Tab.er.24h, 300 MG PO HS, (Reported) Cephalexin 500 Mg Capsule, 500 MG PO QID Prescribed by: JUAREZ CLAY on 05/05/18941 Escitalopram Oxalate 20 Mg Tablet, 20 MG PO DAILY, (Reported) Estradiol 42.5 Gm Cream.appl, 1.25 GM VG PRN PRN for UTI PROPHYLAXIS, (Reported) Furosemide 20 Mg Tablet, 20 MG PO Q48H, (Reported) Gabapentin 400 Mg Capsule, 400 MG PO TID, (Reported) Hydrocodone/Acetaminophen 1 Each Tablet, 1 EACH PO Q6H PRN for PAIN-MODERATE Prescribed by: JENNIFER OCHOA on 09/04/181421 Lorazepam 0.5 Mg Tablet, 0.5 MG PO DAILY, (Reported) Metformin HCl 500 Mg Tablet, 500 MG PO DAILY, (Reported) TAKE WITH A MEAL Metoprolol Tartrate 50 Mg Tablet, 50 MG PO BID, (Reported) Nitrofurantoin Monohyd/M-Cryst 100 Mg Capsule, 1 TAB PO BID Prescribed by: JENNIFER OCHOA on 09/04/181421 Ondansetron HCl 4 Mg Tablet, 4 MG PO Q6H PRN for NAUSEA/VOMITING-1ST LINE, (Reported) Oxycodone HCl/Acetaminophen 1 Each Tablet, 1 EACH PO Q4H PRN for PAIN-MODERATE TO SEVERE Prescribed by: JUAREZ CLAY on 05/05/18941 Phenazopyridine HCl 200 Mg Tablet, 1 TAB PO TID Prescribed by: JENNIFER OCHOA on 09/04/181421 Polyethylene Glycol 3350 17 Gm Powd.pack, 17 GM PO PRN PRN for CONSTIPATION-1ST LINE, (Reported) Potassium Chloride 20 Meq Tab.er.prt, 40 MEQ PO Q48H, (Reported) TAKES 2 (20MEQ) TABLETS EVERY OTHER DAY WITH FUROSEMIDE Tamsulosin HCl 0.4 Mg Cap, 0.4 MG PO DAILY, (Reported) Tramadol HCl 50 Mg Tablet, 50 MG PO TID, (Reported) Trazodone HCl 50 Mg Tablet, 25 MG PO HS, (Reported) Patient Home Medication List Home Medication List Reviewed: Yes Past Iehumbz-Ngralh-Ntfser Hx Patient Social History Alcohol Use: Denies Use Recreational Drug Use: No Smoking Status: Former Smoker Former Smoker, Quit: Oct 15, 1988 Type Used: Cigarettes 2nd Hand Smoke Exposure: No Recent Foreign Travel: No Contact w/Someone Who Travel: No Recent Infectious Disease Expo: No Recent Hopitalizations: No Immunizations Up To Date Tetanus Booster (TDap): Unknown PED Vaccines UTD: No Date of Pneumonia Vaccine: Sep 05, 2014 Date of Influenza Vaccine: Aug 19, 2017 Seasonal Allergies Seasonal Allergies: No Surgeries History of Surgeries: Yes Surgeries: Adenoidectomy, Appendectomy, Bladder Surgery, Cardiac, CABG, Gallbladder, Hysterectomy, Joint Replacement, Orthopedic, Tonsillectomy Respiratory History of Respiratory Disorde: Yes Respiratory Disorders: Asthma Cardiovascular History of Cardiac Disorders: Yes (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, 2015) Cardiac Disorders: Aneurysm, Atrial Fibrillation Neurological History of Neurological Disord: Yes (HAD BRAIN SURGERY FOR ANEURYSM 2008) Reproductive System Hx Reproductive Disorders: Yes Sexually Transmitted Disease: No Female Reproductive Disorders: Endometriosis 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 Genitourinary History of Genitourinary Disor: Yes Genitourinary Disorders: UTI-Chronic Gastrointestinal History of Gastrointestinal Di: No Gastrointestinal Disorders: Chronic Constipation Musculoskeletal History of Musculoskeletal Dis: Yes ( BILAT ROTATOR CUFF SURGERY) Musculoskeletal Disorders: Degenerate Disk Disease, Arthritis, Chronic Back Pain Endocrine History of Endocrine Disorders: Yes Endocrine Disorders: Diabetes, Non-Insulin dep HEENT HEENT Disorders: Cataract Loss of Vision: Denies Hearing Impairment: Denies Cancer History of Cancer: No Psychosocial History of Psychiatric Problem: Yes (panic disorder) Behavioral Health Disorders: Anxiety, Depression Integumentary History of Skin or Integumenta: No Blood Transfusions History of Blood Disorders: No Adverse Reaction to a Blood Tr: No Family Medical History Significant Family History: Heart Disease, Diabetes Family Medial History: Cancer 09 SISTER Cancer of colon Cataract 03 MOTHER, Onset:Unknown Family history: Allergy 03 FATHER, Onset:Unknown 03 MOTHER, Onset:Unknown Family history: Arthritis 03 FATHER, Onset:Unknown 03 MOTHER, Onset:Unknown 09 SISTER, Onset:Unknown Family history: Cardiovascular disease 03 FATHER, Onset:Unknown 03 MOTHER, Onset:Unknown 09 BROTHER, Onset:Unknown 09 SISTER, Onset:Unknown Family history: Diabetes mellitus 03 MOTHER, Onset:Unknown Family history: Gastrointestinal disease 03 FATHER, Onset:Unknown Family history: Hypertension 03 MOTHER, Onset:Unknown Family history: Osteoporosis 03 MOTHER, Onset:Unknown Hearing loss 03 FATHER, Onset:Unknown Heart disease 03 FATHER, Onset:Unknown 03 MOTHER, Onset:Unknown 09 BROTHER, Onset:Unknown Hypercholesterolemia 03 MOTHER, Onset:Unknown Malignant neoplasm of lung 09 SISTER, Onset:Unknown Myocardial infarction 09 BROTHER, Onset:Unknown Parkinson's disease Stroke 03 FATHER, Onset:Unknown Thyroid disease No Family History of: Abdominal aortic aneurysm Robert's disease Alcoholism Aphasia Chest pain Congenital heart disease Congestive heart failure Cystic fibrosis Dementia Dysphagia Family history: Alzheimer's disease Family history: Asthma Family history: Breast disease Family history: Coronary thrombosis Family history: Glaucoma Family history: Thyroid disorder Headache Hereditary disease History of - anemia History of - disorder History of - respiratory disease History of drug abuse Human immunodeficiency virus (HIV) seropositivity Infertile Kidney disease Prostate cancer Psychotic disorder Seizure disorder Tuberculosis Visual impairment Review of Systems-General Constitutional: malaise, weakness EENTM: No blurred vision, No mouth pain, No mouth swelling, No epistaxis, No throat swelling Respiratory: cough, dyspnea on exertion, short of breath Cardiovascular: No chest pain, No edema; Hx of Intervention, palpitations Gastrointestinal: abdominal pain, hematemesis; No jaundice; loss of appetite, melena Genitourinary: No dysuria, No frequency, No hematuria Musculoskeletal: back pain, joint pain, joint swelling, muscle pain, muscle stiffness Skin: No change in color, No change in hair/nails Psychiatric/Neurological: Anxiety, Depressed; Denies Seizure, Denies Tremors Other pt states she bleeds easily if she cuts herself because she is on blood thinners, denies heat or cold intolerance Physical Exam-General Problems Physical Exam Vital Signs Vital Signs - First Documented 04/16/19 15:45 O2 Delivery Nasal Cannula O2 Flow Rate 2.00 FiO2 100 Capillary Refill : Less Than 3 Seconds General Appearance: mild distress, obese Eyes: Bilateral Eye PERRL, Bilateral Eye EOMI HEENT: pharynx normal, other (oral mucosa dry, dentures uppers) Neck: non-tender; No thyromegaly Respiratory: chest non-tender, lungs clear, normal breath sounds, no respiratory distress, no accessory muscle use Cardiovascular: no murmur, irregularly irregular Gastrointestinal: normal bowel sounds, soft, tenderness (lower abdomen), hernia (large incarcerated umbilical hernia) Back: no CVA tenderness, no vertebral tenderness Extremities: no pedal edema, no calf tenderness, normal capillary refill Neurologic/Psychiatric: screening nurse II-XII nml as tested, no motor/sensory deficits, alert, oriented x 3, other (pt is very anxious) Skin: warm/dry, pallor Lymphatic: no adenopathy (neck, axilla or groin) Data Review Labs Laboratory Tests 04/16/19 15:20: White Blood Count 22.4H, Red Blood Count 2.48L, Hemoglobin 7.5L, Hematocrit 23L, Mean Corpuscular Volume 93, Mean Corpuscular Hemoglobin 30, Mean Corpuscular Hemoglobin Concent 33, Red Cell Distribution Width 14.9H, Platelet Count 283, Mean Platelet Volume 10.4, Neutrophils (%) (Auto) 75, Lymphocytes (%) (Auto) 17, Monocytes (%) (Auto) 7, Eosinophils (%) (Auto) 0, Basophils (%) (Auto) 0, Neutrophils # (Auto) 16.8H, Lymphocytes # (Auto) 3.8, Monocytes # (Auto) 1.7H, Eosinophils # (Auto) 0.1, Basophils # (Auto) 0.0, Neutrophils % (Manual) 71, Lymphocytes % (Manual) 20, Monocytes % (Manual) 7, Eosinophils % (Manual) 0, Basophils % (Manual) 0, Band Neutrophils 2, Polychromasia SLIGHT, Anisocytosis SLIGHT, Prothrombin Time 18.9H, INR Comment 1.5H, Activated Partial Thromboplast Time 31, Sodium Level 135, Potassium Level 4.6, Chloride Level 105, Carbon Dioxide Level 21, Anion Gap 9, Blood Urea Nitrogen 56H, Creatinine 0.75, Estimat Glomerular Filtration Rate > 60, BUN/Creatinine Ratio 75, Glucose Level 164H, Lactic Acid Level 2.64*H, Calcium Level 7.9L, Corrected Calcium 8.8, Magnesium Level 1.8, Total Bilirubin 0.2, Aspartate Amino Transf (AST/SGOT) 15, Alanine Aminotransferase (ALT/SGPT) 12, Alkaline Phosphatase 42, Troponin I < 0.028, Total Protein 4.9L, Albumin 2.9L 04/16/19 16:12: Urine Color YELLOW, Urine Clarity VERY CLOUDYH, Urine pH 6.5, Urine Specific [place] 1.020, Urine Protein 2+H, Urine Glucose (UA) NEGATIVE, Urine Ketones NEGATIVE, Urine Nitrite POSITIVEH, Urine Bilirubin NEGATIVE, Urine Urobilinogen NORMAL, Urine Leukocyte Esterase 3+H, Urine RBC (Auto) 1+H, Urine RBC 0-2, Urine WBC 10-25H, Urine Squamous Epithelial Cells 10-25H, Urine Crystals PRESENTH, Urine Amorphous Sediment LARGE VI URATESH, Urine Bacteria LARGEH, Urine Casts NONE, Urine Mucus NEGATIVE, Urine Culture Indicated CULTURE PENDING 04/16/19 17:40: Lactic Acid Level 1.81 Assessment/Plan Assessment/Plan Assessment/Plan GI Bleed ?? upper or lower Anemia Afib on Eliquis CAD Plan is admit to ICU with IV fluids, blood transfusion, pain control, anti- emetics, recheck labs and will allow her to take clear liquids. Will do an EGD in the am to look for upper GI source of bleeding and anemia. Pt will need to be more stable and off her blood thinners before we can prep her for colonoscopy; may be able to do this while she is inpt or can do as an outpt. Discussed the EGD with pt; risks and complications not limited to pain, bleeding, infection and even esophageal rupture. All questions answered to her satisfaction. Will make her NPO after midnight and get consent for EGD. Clinical Quality Measures DVT/VTE Risk/Contraindication: Risk Factor Score Per Nursin RFS Level Per Nursing on Admit: 4+=Very High MYRNA MCCOY DO April 16, 2019 18:44
--- OUTSIDE RECORDS SUMMARY | 2019-04-16 18:44 | XMS REPORT | Continuity of Care Document ---
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 11/06/2011 BAIG INVESTIGATOR INTERNAL REVENUE, DESI HOU[place]ON 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 11/06/2011 BAIG INVESTIGATOR INTERNAL REVENUE, DESI [place] 496 CHRONIC OBSTRUCTIVE PULMONARY DISEASE 11/06/2011 BAIG INVESTIGATOR INTERNAL REVENUE, DESI HOUSTON 683 ACUTE LYMPHADENITIS 11/06/2011 BAIG INVESTIGATOR INTERNAL REVENUE, DESI HOU[place]ON 246.9 UNSPECIFIED DISORDER OF THYROID 11/06/2011 BAIG INVESTIGATOR INTERNAL REVENUE, DESI HOUSTON 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 11/06/2011 BAIG INVESTIGATOR INTERNAL REVENUE, DESI HOUSTON 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 11/06/2011 ABIG INVESTIGATOR INTERNAL REVENUE, DESI HOU[place]ON 496 CHRONIC OBSTRUCTIVE PULMONARY DISEASE 11/06/2011 BAIG INVESTIGATOR INTERNAL REVENUE, DESI HOUSTON 683 ACUTE LYMPHADENITIS 11/06/2011 MARC INVESTIGATOR INTERNAL REVENUE, AUDIE R 246.9 UNSPECIFIED DISORDER OF THYROID 11/06/2011 MARC INVESTIGATOR INTERNAL REVENUE, AUDIE R 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 11/06/2011 TARI INVESTIGATOR INTERNAL REVENUE, AUDIE R 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 11/06/2011 MARC INVESTIGATOR INTERNAL REVENUE, AUDIE R 496 CHRONIC OBSTRUCTIVE PULMONARY DISEASE 11/06/2011 MARC INVESTIGATOR INTERNAL REVENUE, AUDIE R 683 ACUTE LYMPHADENITIS 11/06/2011 JIMMY WOODSN, SHAHNAZ S 246.9 UNSPECIFIED DISORDER OF THYROID 11/06/2011 JIMMY INVESTIGATOR INTERNAL REVENUE, SHAHNAZ S 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 11/06/2011 JIMMY INVESTIGATOR INTERNAL REVENUE, SHAHNAZ S 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 11/06/2011 JIMMY INVESTIGATOR INTERNAL REVENUE, SHAHNAZ S 496 CHRONIC OBSTRUCTIVE PULMONARY DISEASE [...] CHRONIC OBSTRUCTIVE PULMONARY DISEASE 11/06/2011 JACQUIE BURGOS MXA T 683 ACUTE LYMPHADENITIS 11/06/2011 HAZEL DO, [...] 296.30 MO DEPRESSIVE RECURRENT UNSPECIFIED 12/18/2011 DESI BAGI APRN 296.30 MO DEPRESSIVE RECURRENT UNSPECIFIED 12/18/2011 [...] JOHNSON MD 300.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 04/30/2012 MASSEIL VEGA 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 04/30/2012 MIKE [...] SI DYSSOMNIA NOS 05/29/2012 SHARIF JOHNSON MD N 307.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 [...] AN PANIC DIS W AGORA 06/05/2012 CAROLINE EMNDOZA MD V58.69 MEDICATION HIGH RISK 06/05/2012 CAROLINE [...] (3 YRS AND ABOVE, IM) 09/11/2012 MIKE HAEZL DO V04.81 FLU DX (3 YRS AND [...] MD 401.1 ESSENTIAL HYPERTENSION BENIGN 10/24/2012 CAROLINE MENDOAZ MD 785.1 palpitations 10/24/2012 CAROLINE MENDOZA MD [...] CAROLINE MENDOZA MD 790.29 HYPERGLYCEMIA 12/18/2012 JOVANNI INVESTIGATOR INTERNAL REVENUE, DESI CONRAD 272.4 HYPERLIPIDEMIA 12/18/2012 BAIG INVESTIGATOR INTERNAL REVENUE, DESI CONRAD 790.29 HYPERGLYCEMIA 12/18/2012 JOVANNI INVESTIGATOR INTERNAL REVENUE, DESI CONRAD 272.4 HYPERLIPIDEMIA 12/18/2012 JOVANNI INVESTIGATOR INTERNAL REVENUE, DESI CONRAD 790.29 HYPERGLYCEMIA 12/18/2012 MARC INVESTIGATOR INTERNAL REVENUE, AUDIE R 272.4 HYPERLIPIDEMIA 12/18/2012 MARC INVESTIGATOR INTERNAL REVENUE, AUDIE R 790.29 HYPERGLYCEMIA 12/18/2012 JIMMY INVESTIGATOR INTERNAL REVENUE, SHAHNAZ S 272.4 HYPERLIPIDEMIA 12/18/2012 JIMMY INVESTIGATOR INTERNAL REVENUE, SHAHNAZ S 790.29 HYPERGLYCEMIA 12/18/2012 JACQUIE INVESTIGATOR INTERNAL REVENUE, MAX T 272.4 HYPERLIPIDEMIA 12/18/2012 JACQUIE INVESTIGATOR INTERNAL REVENUE, MAX T 790.29 HYPERGLYCEMIA 12/18/2012 JACQUIE INVESTIGATOR INTERNAL REVENUE, MAX T 272.4 HYPERLIPIDEMIA 12/18/2012 JACQUIE INVESTIGATOR INTERNAL REVENUE, MAX T 790.29 HYPERGLYCEMIA 12/18/2012 HAZEL DO, [...] JOHNSON MD N 790.29 HYPERGLYCEMIA 12/18/2012 JANINA DEFECT CUTTER, MASSIEL M 272.4 HYPERLIPIDEMIA 12/18/2012 JANINA DEFECT CUTTER, MASSIEL M 790.29 HYPERGLYCEMIA 12/18/2012 HAZEL DO, [...] MD Ot 272.4 HYPERLIPIDEMIA NEC/NOS 07/09/2013 SHANIQUE VGEA MD Ot 300.00 ANXIETY STATE NOS 07/09/2013 SHANIQUE VEGA MD Ot 305.1 TOBACCO USE DISORDER 07/09/2013 SHANIQUE VEGA MD Ot 311 DEPRESSIVE DISORDER NEC 07/09/2013 SHANIQUE VEGA MD Ot 338.29 OTHER CHRONIC PAIN 07/09/2013 SHANIQUE VEGA MD Ot 401.9 HYPERTENSION NOS 07/09/2013 SHANIQUE VEGA MD Ot 414.01 CORONARY ATHEROSCLEROSIS OF [place] CORON 07/09/2013 SHANIQUE VEGA MD Ot 491.21 [...] JOHNSON MD V05.8 ZOSTAVAX DX 09/22/2013 JANINA DEFECT CUTTER, MASSIEL M 271.3 GLUCOSE INTOLERANCE 09/22/2013 JANINA [...] JOHNSON MD V05.8 ZOSTAVAX DX 09/22/2013 SHANIQUE VEAG MD 271.3 GLUCOSE INTOLERANCE 09/22/2013 SHANIQUE VEGA [...] DESI BAIG APRN 786.2 COUGH 11/09/2013 DESI ABIG APRN V65.42 COUNSELING - SMOKING CESSATION 11/09/2013 [...] V65.42 COUNSELING - SMOKING CESSATION 11/12/2013 JIMMY INVESTIGATOR INTERNAL REVENUE, SHAHNAZ S 486 PNEUMONIA UNSPECIFIED 11/12/2013 JACQUIE INVESTIGATOR INTERNAL REVENUE, MAX T 486 PNEUMONIA UNSPECIFIED 11/12/2013 JACQUIE INVESTIGATOR INTERNAL REVENUE, MAX T 486 PNEUMONIA UNSPECIFIED 11/12/2013 ILIR VILLALOBOS, MIKE K 486 PNEUMONIA UNSPECIFIED 11/12/2013 REJI ROLDAN, ACROLINE M 486 PNEUMONIA UNSPECIFIED 11/12/2013 CAROLINE MENDOZA [...] MD Ot 722.52 LUMB/LUMBOSAC DISC DEGEN 05/24/2014 DIANAN MACHADO MD Ot 729.1 MYALGIA AND MYOSITIS [...] CORONARY ATHEROSCLEROSIS OF UNSPECIFIED TYPE OF VESSEL [place] OR GRAFT 09/15/2014 SHARIF JOHNSON MD 782.2 LOCALIZED SUPERFICIAL SWELLING MASS OR LUMP 09/15/2014 MASSIEL VEGA 414.00 CORONARY ATHEROSCLEROSIS OF UNSPECIFIED TYPE OF VESSEL [place] OR GRAFT 09/15/2014 MASSIEL VEGA 782.2 LOCALIZED SUPERFICIAL SWELLING MASS OR LUMP 09/15/2014 MIKE HAZEL DO 414.00 CORONARY ATHEROSCLEROSIS OF UNSPECIFIED TYPE OF VESSEL [place] OR GRAFT 09/15/2014 MIKE HAZEL DO 782.2 LOCALIZED SUPERFICIAL SWELLING MASS OR LUMP 09/15/2014 SHARIF JOHNSON MD 414.00 CORONARY ATHEROSCLEROSIS OF UNSPECIFIED TYPE OF VESSEL [place] OR GRAFT 09/15/2014 SHARIF JOHNSON MD 782.2 LOCALIZED SUPERFICIAL SWELLING MASS OR LUMP 09/15/2014 SHANQIUE VEGA MD 414.00 CORONARY ATHEROSCLEROSIS OF UNSPECIFIED TYPE OF VESSEL [place] OR GRAFT 09/15/2014 SHANIQUE VEGA MD 782.2 LOCALIZED SUPERFICIAL SWELLING MASS OR LUMP 09/15/2014 SHARIF JOHNSON MD 414.00 CORONARY ATHEROSCLEROSIS OF UNSPECIFIED TYPE OF VESSEL [place] OR GRAFT 09/15/2014 SHARIF JOHNSON MD 782.2 LOCALIZED SUPERFICIAL SWELLING MASS OR LUMP 09/15/2014 SHARIF JOHNSON MD 414.00 CORONARY ATHEROSCLEROSIS OF UNSPECIFIED TYPE OF VESSEL [place] OR GRAFT 09/15/2014 SHARIF JOHNSON MD 782.2 LOCALIZED SUPERFICIAL SWELLING MASS OR LUMP 09/15/2014 SHANIQUE VEGA MD 414.00 CORONARY ATHEROSCLEROSIS OF UNSPECIFIED TYPE OF VESSEL [place] OR GRAFT 09/15/2014 SHANIQUE VEGA MD 782.2 [...] HAZEL DO Ot 414.01 CORONARY ATHEROSCLEROSIS OF [place] CORON 11/02/2014 MIKE HAZEL DO Ot 491.20 [...] FACP CCDS Ot 414.01 CORONARY ATHEROSCLEROSIS OF [place] CORON 12/28/2014 BISHNU ROLDAN FACC, ALI FACP CCDS Ot 414.4 CORONARY ATHEROSCLEROSIS DUE TO CALCIFIE 12/28/2014 BISHNU ROLDAN FACC, ALI FACP CCDS Ot 440.0 AORTIC ATHEROSCLEROSIS 12/28/2014 BISHNU ROLDAN FACC, ALI FACP CCDS Ot 440.1 RENAL ARTERY ATHEROSCLER 12/28/2014 BISHNU ROLDAN FACC, ALI FACP CCDS Ot 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 12/28/2014 BISHNU ROLDAN FACC, ALI [...] SASHA ROLDAN, MYRNA E Ot V45.81 02/08/2015 SSAHA ROLDAN, MYRNA E Ot V46.2 02/08/2015 SASHA [...] ROLDAN, MYRNA E Ot 427.31 02/14/2015 SASHA RODLAN, MYRNA E Ot 496 02/14/2015 SASHA ROLDAN, [...] SASHA ROLDAN, MYRNA E Ot 300.00 02/17/2015 SAHSA ROLDAN, MYRNA E Ot 401.9 02/17/2015 SASHA [...] MENDOZA MD Ot 724.4 02/17/2015 MAX DHILLON VENDING MACHINE HOST/HOSTESS Ot 401.1 02/17/2015 MAX DHILLON VENDING MACHINE HOST/HOSTESS Ot 424.1 02/17/2015 MAX DHILLON VENDING MACHINE HOST/HOSTESS Ot 785.2 02/17/2015 MAX DHILLON VENDING MACHINE HOST/HOSTESS Ot 786.05 02/17/2015 ANDRE HERNANDEZ DO Ot [...] ROLDAN, MYRNA E Ot V15.82 02/17/2015 SASHA RLODAN, MYRNA E Ot V45.81 02/17/2015 SASHA ROLDAN, [...] ROLDAN, MYRNA E Ot 496 02/21/2015 SASHA ROLDNA, MYRNA E Ot 530.81 02/21/2015 SASHA ROLDAN, [...] SASHA ROLDAN, MYRNA E Ot 285.9 02/23/2015 SASAH ROLDAN, MYRNA E Ot 300.00 02/23/2015 SASHA [...] SASHA ROLDAN, MYRNA E Ot 733.00 02/23/2015 SASAH ROLDAN, MYRNA E Ot 786.09 02/23/2015 SASHA [...] ROLDAN MYRNA E Ot 414.01 02/24/2015 SASHA RODLAN MYRNA E Ot 427.31 02/24/2015 SASHA ROLDAN [...] MYRNA E Ot 414.01 CORONARY ATHEROSCLEROSIS OF [place] CORON 02/24/2015 SASHA ROLDAN MYRNA E Ot [...] MD Ot 920 CONTUSION FACE/SCALP/NCK 02/25/2015 JUAREZ DAWSNO MD Ot E000.8 OTHER EXTERNAL CAUSE STATUS [...] MAX DHILLON Ot 401.1 02/27/2015 MAX DHILLON VENDING MACHINE HOST/HOSTESS Ot 424.1 02/27/2015 MAX DHILLON VENDING MACHINE HOST/HOSTESS Ot 785.2 02/27/2015 MAX DHILLON VENDING MACHINE HOST/HOSTESS Ot 786.05 02/27/2015 MARY VILLALOBOSANDRE Ot 715.91 [...] SHARIF N Ot 433.10 03/12/2015 ELIZABETH ROLDAN, HSARIF N Ot 433.30 03/12/2015 ELIZABETH ROLDAN, SHARIF [...] ROLDAN, SHARIF N Ot E849.7 03/13/2015 ELIZABETH RLODAN, SHARIF N Ot E885.9 03/13/2015 ELIZABETH ROLDAN, [...] 03/15/2015 SHARIF JOHNSON MD Ot 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 03/15/2015 SHARIF JOHNSON MD Ot [...] MENDOZA MD Ot 724.4 12/07/2015 MAX DHILLON VENDING MACHINE HOST/HOSTESS Ot 401.1 12/07/2015 MAX DHILLON VENDING MACHINE HOST/HOSTESS Ot 424.1 12/07/2015 MAX DHILLON VENDING MACHINE HOST/HOSTESS Ot 785.2 12/07/2015 MAX DHILLON VENDING MACHINE HOST/HOSTESS Ot 786.05 12/07/2015 ANDRE HERNANDEZ DO Ot [...] MD Ot I25.10 ATHSCL HEART DISEASE OF [place] CORONARY 05/16/2016 PRUDENCE SHAW MD Ot I71.4 [...] INCONTINENCE 11/28/2016 LUL NORWOOD MD Ot Z79.84 CAD OPERATOR (CURRENT) USE OF ORAL HYPOGLYC 11/29/2016 LUL NORWOOD MD Ot E11.9 TYPE 2 DIABETES MELLITUS WITHOUT COMPLIC 11/29/2016 LUL NORWOOD MD, Ot N32.81 OVERACTIVE BLADDER 11/29/2016 LUL NORWOOD MD Ot 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 (ISD) 11/29/2016 CUCO ROLDAN, LUL Garcia Ot 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 11/29/2016 CUCO ROLDAN, LUL Garcia Ot Z79.84 CAD OPERATOR (CURRENT) USE OF ORAL HYPOGLYC 12/03/2016 CUCO ROLDAN, LUL Garcia Ot E11.9 TYPE 2 DIABETES MELLITUS WITHOUT COMPLIC 12/03/2016 CUCO ROLDAN, LUL Garcia Ot N32.81 OVERACTIVE BLADDER 12/03/2016 LUL NORWOOD MD Ot 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 (ISD) 12/03/2016 LUL NORWOOD MD, Ot 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 12/03/2016 LUL NORWOOD MD, Ot Z79.84 CAD OPERATOR (CURRENT) USE OF ORAL HYPOGLYC 02/06/2017 LUL [...] CCDS Ot I25.10 ATHSCL HEART DISEASE OF [place] CORONARY 10/08/2017 BISHNU ROLDAN FACC, ALI FACP [...] CCDS Ot I25.10 ATHSCL HEART DISEASE OF [place] CORONARY 10/08/2017 BISHNU ROLDAN FACC, ALI FACP CCDS Ot I48.0 PAROXYSMAL ATRIAL FIBRILLATION 10/08/2017 BISHNU ROLDAN FACC, ALI FACP CCDS Ot I65.29 OCCLUSION AND STENOSIS OF UNSPECIFIED CA 10/15/2017 BISHNU ROLDAN FACC, ALI FACP CCDS Ot I11.0 HYPERTENSIVE HEART DISEASE WITH HEART FA 10/15/2017 BISHNU ROLDAN FACC, ALI FACP CCDS Ot I25.10 ATHSCL HEART DISEASE OF [place] CORONARY 10/15/2017 BISHNU ROLDAN FACC, ALI FACP [...] MD, FACC FACP CCDS Ot Z79.899 OTHER [facility] (CURRENT) DRUG THERAPY 10/15/2017 CHELLE GOETZ MD, FACC FACP CCDS Ot Z87.891 PERSONAL HISTORY OF NICOTINE DEPENDENCE 10/15/2017 CHELLE GOETZ MD, FACC FACP CCDS Ot Z88.1 ALLERGY STATUS TO OTHER ANTIBIOTIC AGENT 10/15/2017 CHELLE GOETZ MD, FACC FACP CCDS Ot Z88.2 ALLERGY STATUS TO SULFONAMIDES STATUS 10/15/2017 CHELLE GOETZ MD, FACC FACP CCDS Ot Z88.8 ALLERGY STATUS TO [facility] DRUG/MEDS/BIOL SUB 10/15/2017 CHELLE GOETZ MD, FACC FACP CCDS Ot Z91.19 PATIENT'S NONCOMPLIANCE W [facility] MEDICAL TR 10/15/2017 CHELLE GOETZ MD, FACC [...] CCDS Ot I25.10 ATHSCL HEART DISEASE OF [place] CORONARY 10/26/2017 CHELLE GOETZ MD, FACCP CCDS Ot I48.0 PAROXYSMAL ATRIAL FIBRILLATION 10/26/2017 BISHNU MD FACC, ALI FACP CCDS Ot I71.4 ABDOMINAL AORTIC ANEURYSM, WITHOUT RUPTU 10/29/2017 BISHNU ROLDAN FACC, ALI FACP CCDS Ot E78.4 OTHER HYPERLIPIDEMIA 10/29/2017 BISHNU ROLDAN FACC, ALI FACP CCDS Ot I10 ESSENTIAL (PRIMARY) HYPERTENSION 10/29/2017 BISHNU ROLDAN FACC, ALI FACP CCDS Ot I25.10 ATHSCL HEART DISEASE OF [place] CORONARY 10/29/2017 BISHNU ROLDAN FACC, ALI FACP CCDS Ot I48.0 PAROXYSMAL ATRIAL FIBRILLATION 10/29/2017 BISHNU ROLDAN FACC, ALI FACP CCDS Ot I71.4 ABDOMINAL AORTIC ANEURYSM, WITHOUT RUPTU 10/29/2017 BISHNU ROLDAN FACC, ALI FACP CCDS Ot E78.5 HYPERLIPIDEMIA, UNSPECIFIED 10/29/2017 BISHNU ROLDAN FACC, ALI FACP CCDS Ot I10 ESSENTIAL (PRIMARY) HYPERTENSION 10/29/2017 BISHNU ROLDAN FACC, ALI FACP CCDS Ot I25.10 ATHSCL HEART DISEASE OF [place] CORONARY 10/29/2017 BISHNU ROLDAN [facility], ALI FACP CCDS Ot I48.0 PAROXYSMAL ATRIAL FIBRILLATION 10/29/2017 [facility]AN [facility], ALI FACP CCDS Ot I65.29 OCCLUSION AND STENOSIS OF UNSPECIFIED CA 10/29/2017 BISHNU HDEZC, ALI FACP CCDS Ot R06.02 SHORTNESS OF BREATH 10/29/2017 BISHNU ROLDAN FACC, ALI FACP CCDS Ot E78.5 HYPERLIPIDEMIA, UNSPECIFIED 10/29/2017 [facility], ALI FACP CCDS Ot I10 ESSENTIAL (PRIMARY) HYPERTENSION 10/29/2017 BISHNU ROLDAN [facility], ALI FACP CCDS Ot I25.10 ATHSCL HEART DISEASE OF [place] CORONARY 10/29/2017 BISHNU ROLDAN FACC, ALI FACP CCDS Ot I48.0 PAROXYSMAL ATRIAL FIBRILLATION 10/29/2017 BISHNU ROLDAN FACC, ALI FACP CCDS Ot I65.29 OCCLUSION AND STENOSIS OF UNSPECIFIED CA 11/05/2017 BISHNU ROLDAN FACC, ALI FACP CCDS Ot E78.4 OTHER HYPERLIPIDEMIA 11/05/2017 BISHNU ROLDAN FACC, ALI FACP CCDS Ot I10 ESSENTIAL (PRIMARY) HYPERTENSION 11/05/2017 [facility], ALI FACP CCDS Ot I25.10 ATHSCL HEART DISEASE OF [place] CORONARY 11/05/2017 BISHNU ROLDAN FACC, ALI FACP CCDS Ot I48.0 PAROXYSMAL ATRIAL FIBRILLATION 11/05/2017 BISHNU ROLDAN FACC, ALI FACP CCDS Ot I71.4 ABDOMINAL AORTIC ANEURYSM, WITHOUT RUPTU 11/07/2017 BISHNU ROLDAN FACC, ALI FACP CCDS Ot E78.4 OTHER HYPERLIPIDEMIA 11/07/2017 BISHNU ROLDAN FACC, ALI FACP CCDS Ot I10 ESSENTIAL (PRIMARY) HYPERTENSION 11/07/2017 BISHNU ROLDAN FACC, ALI FACP CCDS Ot I25.10 ATHSCL HEART DISEASE OF [place] CORONARY 11/07/2017 BISHNU ROLDAN FACC, ALI FACP CCDS Ot I48.0 PAROXYSMAL ATRIAL FIBRILLATION 11/07/2017 BISHNU ROLDAN FACC, ALI FACP CCDS Ot I71.4 ABDOMINAL AORTIC ANEURYSM, WITHOUT RUPTU 11/08/2017 BISHNU HDEZC, ALI FACP CCDS Ot E78.5 HYPERLIPIDEMIA, UNSPECIFIED 11/08/2017 BISHNU HDEZC, ALI FACP CCDS Ot I10 ESSENTIAL (PRIMARY) HYPERTENSION 11/08/2017 BISHNU ROLDAN FACC, ALI FACP CCDS Ot I25.10 ATHSCL HEART DISEASE OF [place] CORONARY 11/08/2017 BISHNU ROLDAN FACC, ALI FACP [...] CCDS Ot I25.10 ATHSCL HEART DISEASE OF [place] CORONARY 11/08/2017 BISHNU ROLDAN FACC, ALI FACP CCDS Ot I48.0 PAROXYSMAL ATRIAL FIBRILLATION 11/08/2017 BISHNU HDEZC, ALI FACP CCDS Ot I65.29 OCCLUSION AND STENOSIS OF UNSPECIFIED CA 11/15/2017 BISHNU HDEZC, ALI FACP CCDS Ot E78.4 OTHER HYPERLIPIDEMIA 11/15/2017 BISHNU ROLDAN FACC, CHELLE FACP CCDS Ot I10 ESSENTIAL (PRIMARY) HYPERTENSION 11/15/2017 BISHNU ROLDAN FACC, CHELLE FACP CCDS Ot I25.10 ATHSCL HEART DISEASE OF [place] CORONARY 11/15/2017 BISHNU ROLDAN FACAndrea, CHELLE FACP [...] FOR OTHER PREPROCEDURAL EXAMIN 11/26/2017 SATHISH ABAD VENDING MACHINE HOST/HOSTESS Ot 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 11/26/2017 SATHISH ABAD VENDING MACHINE HOST/HOSTESS Ot 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 11/26/2017 SATHISH ABAD VENDING MACHINE HOST/HOSTESS Ot I71.4 ABDOMINAL AORTIC ANEURYSM, WITHOUT RUPTU 11/26/2017 SATHISH BAAD VENDING MACHINE HOST/HOSTESS Ot K42.9 UMBILICAL HERNIA WITHOUT OBSTRUCTION OR 11/26/2017 SATHISH ABAD VENDING MACHINE HOST/HOSTESS Ot K76.89 OTHER SPECIFIED DISEASES OF LIVER 11/26/2017 SATHISH ABAD VENDING MACHINE HOST/HOSTESS Ot N28.1 CYST OF KIDNEY, ACQUIRED 11/26/2017 [...] MD, Ot I25.10 ATHSCL HEART DISEASE OF [place] CORONARY 11/26/2017 LUL NORWOOD MD, Ot J44.9 [...] ADULT 11/26/2017 LUL NORWOOD MD, Ot Z79.01 CAD OPERATOR (CURRENT) USE OF ANTICOAGULANT 11/26/2017 LUL NORWOOD MD, Ot Z79.82 [facility]CI (CURRENT) USE OF ASPIRIN 11/26/2017 LUL NORWOOD MD, Ot Z79.899 OTHER [facility] (CURRENT) DRUG THERAPY 11/26/2017 LUL NORWOOD MD, [...] MD, Ot I25.10 ATHSCL HEART DISEASE OF [place] CORONARY 11/27/2017 PRUDENCE SHAW MD, Ot I48.0 [...] INITI 11/27/2017 PRUDENCE SHAW MD, Ot Z79.01 [facility]CI (CURRENT) USE OF ANTICOAGULANT 11/27/2017 PRUDENCE SHAW MD, Ot Z79.82 CAD OPERATOR (CURRENT) USE OF ASPIRIN 11/27/2017 PRUDENCE SHAW MD, Ot Z79.84 CAD OPERATOR (CURRENT) USE OF ORAL HYPOGLYC 11/27/2017 PRUDENCE SHAW MD, Ot Z79.899 OTHER CAD OPERATOR (CURRENT) DRUG THERAPY 11/27/2017 PRUDENCE SHAW MD, Ot Z87.891 PERSONAL HISTORY OF NICOTINE DEPENDENCE 11/27/2017 PRUDENCE SHAW MD, Ot 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 BYPASS GRAFT 11/27/2017 PRUDENCE SHAW MD Ot Z96.641 PRESENCE OF RIGHT ARTIFICIAL HIP JOINT 12/03/2017 SATHISH ABADP Ot 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 12/03/2017 SATIHSH ABADP Ot 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 12/03/2017 SATHISH ABADP Ot I71.4 ABDOMINAL AORTIC ANEURYSM, WITHOUT RUPTU 12/03/2017 SATHISH ABADP Ot I77.2 RUPTURE OF ARTERY 12/03/2017 SATHISH ABADP Ot J43.9 EMPHYSEMA, UNSPECIFIED 12/03/2017 BAIMA, SATHISH L VENDING MACHINE HOST/HOSTESS Ot 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 12/08/2017 SATHISH ABAD VENDING MACHINE HOST/HOSTESS Ot 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 12/08/2017 SATHISH ABAD VENDING MACHINE HOST/HOSTESS Ot 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 12/08/2017 SATHISH ABAD VENDING MACHINE HOST/HOSTESS Ot I71.4 ABDOMINAL AORTIC ANEURYSM, WITHOUT RUPTU 12/08/2017 SATHISH ABAD VENDING MACHINE HOST/HOSTESS Ot I77.2 RUPTURE OF ARTERY 12/08/2017 SATHISH ABAD VENDING MACHINE HOST/HOSTESS Ot J43.9 EMPHYSEMA, UNSPECIFIED 12/08/2017 SATHISH ABAD VENDING MACHINE HOST/HOSTESS Ot 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 AT [...] MD Ot I25.10 ATHSCL HEART DISEASE OF [place] CORONARY 2017 JESSICA JENKINS MD Ot J44.9 [...] STRIKE 2017 JESSICA JENKINS MD Ot Z79.01 [facility]CI (CURRENT) USE OF ANTICOAGULANT 2017 JESSICA JENKINS MD Ot Z79.02 CAD OPERATOR (CURRENT) USE OF ANTITHROMBOTI 2017 JESSICA JENKINS MD, Ot Z79.82 CAD OPERATOR (CURRENT) USE OF ASPIRIN 2017 JESSICA JENKINS MD Ot Z79.84 [facility] (CURRENT) USE OF ORAL HYPOGLYC 2017 JESSICA [...] MD Ot I25.10 ATHSCL HEART DISEASE OF [place] CORONARY 12/17/2017 JESSICA JENKINS MD Ot J44.9 [...] STRIKE 12/17/2017 JESSICA JENKINS MD, Ot Z79.01 [facility] (CURRENT) USE OF ANTICOAGULANT 12/17/2017 JESSICA JENKINS MD, Ot Z79.02 [facility] (CURRENT) USE OF ANTITHROMBOTI 12/17/2017 JESSICA JENKINS MD, Ot Z79.82 CAD OPERATOR (CURRENT) USE OF ASPIRIN 12/17/2017 JESSICA JENKINS MD, Ot Z79.84 [facility] (CURRENT) USE OF ORAL HYPOGLYC 12/17/2017 JESSICA [...] 12/23/2017 SATHISH ABADP Ot 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 12/23/2017 SATHISH ABADP Ot I71.4 ABDOMINAL AORTIC ANEURYSM, WITHOUT RUPTU 12/23/2017 SATHISH ABAD VENDING MACHINE HOST/HOSTESS Ot K42.9 UMBILICAL HERNIA WITHOUT OBSTRUCTION OR 12/23/2017 SATHISH ABADP Ot K76.89 OTHER SPECIFIED DISEASES OF LIVER 12/23/2017 KEVONSATHISH HOUSE L VENDING MACHINE HOST/HOSTESS Ot N28.1 CYST OF KIDNEY, ACQUIRED 12/24/2017 RABBI ROLDAN, MARCIA Funk Ot 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 12/24/2017 RABBI ROLDAN, MARCIA Funk Ot Z01.810 ENCOUNTER FOR PREPROCEDURAL CARDIOVASCUL 12/24/2017 MARCIA LUI MD Ot Z01.811 ENCOUNTER FOR PREPROCEDURAL RESPIRATORY 12/24/2017 MARCIA LUI MD Ot Z01.812 ENCOUNTER FOR PREPROCEDURAL LABORATORY E 12/24/2017 KEVONSATHISH HOUSE L VENDING MACHINE HOST/HOSTESS Ot 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 12/24/2017 KEVONLACY SATHISH L VENDING MACHINE HOST/HOSTESS Ot 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[place] [facility] 12/24/2017 KEVONLACY SATHISH L VENDING MACHINE HOST/HOSTESS Ot I71.4 ABDOMINAL AORTIC ANEURYSM, WITHOUT RUPTU 12/24/2017 GREYSON ABADHER L VENDING MACHINE HOST/HOSTESS Ot I77.2 RUPTURE OF ARTERY 12/24/2017 JENNIFFER SATHISH L VENDING MACHINE HOST/HOSTESS Ot J43.9 EMPHYSEMA, UNSPECIFIED 12/24/2017 KEVONLACY SATHISH L VENDING MACHINE HOST/HOSTESS Ot 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 01/07/2018 KEVONLACY SATHISH L VENDING MACHINE HOST/HOSTESS Ot 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 01/07/2018 KEVONLACY SATHISH L VENDING MACHINE HOST/HOSTESS Ot I70.201 [facility] [place] [facility] 01/07/2018 KEVONLACY SATHISH L VENDING MACHINE HOST/HOSTESS Ot I71.4 ABDOMINAL AORTIC ANEURYSM, WITHOUT RUPTU 01/07/2018 JENNIFFER SATHISH L VENDING MACHINE HOST/HOSTESS Ot K42.9 UMBILICAL HERNIA WITHOUT OBSTRUCTION OR 01/07/2018 KEVONLACY SATHISH L VENDING MACHINE HOST/HOSTESS Ot K76.89 OTHER SPECIFIED DISEASES OF LIVER 01/07/2018 KEVONSATHISH HOUSE L VENDING MACHINE HOST/HOSTESS Ot N28.1 CYST OF KIDNEY, ACQUIRED 01/08/2018 KEVONLACY SATHISH L VENDING MACHINE HOST/HOSTESS Ot 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 01/08/2018 KEVONLACY SATHISH L VENDING MACHINE HOST/HOSTESS Ot 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 01/08/2018 GREYSON ABADHER L VENDING MACHINE HOST/HOSTESS Ot I71.4 ABDOMINAL AORTIC ANEURYSM, WITHOUT RUPTU 01/08/2018 BAIMA, SATHISH L VENDING MACHINE HOST/HOSTESS Ot I77.2 RUPTURE OF ARTERY 01/08/2018 KEVONSATHISH HOUSE Bette VENDING MACHINE HOST/HOSTESS Ot J43.9 EMPHYSEMA, UNSPECIFIED 01/08/2018 JENNIFFERSATHISH Bette VENDING MACHINE HOST/HOSTESS Ot 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 AT [...] CCDS Ot I25.10 ATHSCL HEART DISEASE OF [place] CORONARY 01/28/2018 CHELLE GOETZ MD, FACC FACP [...] FACC, ALI FACP CCDS Ot Z79.899 OTHER [facility] (CURRENT) DRUG THERAPY 01/28/2018 BISHNU ROLDAN FACC, CHELLE FACP CCDS Ot Z87.891 PERSONAL HISTORY OF NICOTINE DEPENDENCE 01/28/2018 BISHNU ROLDAN FACC, ALI FACP CCDS Ot Z88.1 ALLERGY STATUS TO OTHER ANTIBIOTIC AGENT 01/28/2018 BISHNU ROLDAN FACC, ALI FACP CCDS Ot Z88.2 ALLERGY STATUS TO SULFONAMIDES STATUS 01/28/2018 BISHNU ROLDAN FACC, CHELLE FACP CCDS Ot Z88.8 ALLERGY STATUS TO [facility] DRUG/MEDS/BIOL SUB 01/28/2018 CHELLE GOETZ MD, FACC [...] CCDS Ot I25.10 ATHSCL HEART DISEASE OF [place] CORONARY 03/11/2018 BISHNU ROLDAN FACC, ALI FACP [...] CCDS Ot I25.10 ATHSCL HEART DISEASE OF [place] CORONARY 03/25/2018 BISHNU ROLDAN FACC, ALI FACP [...] CCDS Ot I25.10 ATHSCL HEART DISEASE OF [place] CORONARY 04/01/2018 BISHNU ROLDAN FACC, ALI FACP CCDS Ot I48.0 PAROXYSMAL ATRIAL FIBRILLATION 04/01/2018 BISHNU ROLDAN FACC, CHELLE FACP CCDS Ot I70.1 ATHEROSCLEROSIS OF RENAL ARTERY 04/01/2018 BISHNU ROLDAN FACC, CHELLE FACP CCDS Ot I70.203 [facility] [place] [facility] 04/01/2018 BISHNU ROLDAN FACC, ALI FACP CCDS Ot I71.4 ABDOMINAL AORTIC ANEURYSM, WITHOUT RUPTU 04/01/2018 BISHNU ROLDAN FACC, ALI FACP CCDS Ot 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 04/01/2018 BISHNU ROLDAN FACC, ALI FACP CCDS Ot J44.9 CHRONIC OBSTRUCTIVE PULMONARY DISEASE, U 04/01/2018 BISHNU ROLDAN FACC, ALI FACP CCDS Ot Z79.01 CAD OPERATOR (CURRENT) USE OF ANTICOAGULANT 04/01/2018 CHELLE GOETZ MD, FACC FACP CCDS Ot Z79.02 CAD OPERATOR (CURRENT) USE OF ANTITHROMBOTI 04/01/2018 CHELLE GOETZ MD, FACC FACP CCDS Ot Z79.82 [facility] (CURRENT) USE OF ASPIRIN 04/01/2018 BISHNU ROLDAN FACC, CHELLE FACP CCDS Ot Z79.899 OTHER [facility] (CURRENT) DRUG THERAPY 04/01/2018 BISHNU ROLDAN FACC [...] ENCOUNTER FOR PREPROCEDURAL RESPIRATORY 04/11/2018 RAFIQ CAMPOVERDE VENDING MACHINE HOST/HOSTESS Ot I70.208 [facility] [place] [facility] 04/11/2018 RAFIQ CAMPOEVRDE VENDING MACHINE HOST/HOSTESS Ot I70.8 ATHEROSCLEROSIS OF OTHER ARTERIES 04/11/2018 RAFIQ CAMPOVERDE VENDING MACHINE HOST/HOSTESS Ot I71.4 ABDOMINAL AORTIC ANEURYSM, WITHOUT RUPTU 04/11/2018 GILLES RAFIQ Magaña VENDING MACHINE HOST/HOSTESS Ot 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 04/11/2018 GILLES RAFIQ Magaña VENDING MACHINE HOST/HOSTESS Ot K43.9 VENTRAL HERNIA WITHOUT OBSTRUCTION OR GA 04/11/2018 GILLES RAFIQ Magaña VENDING MACHINE HOST/HOSTESS Ot N28.89 OTHER SPECIFIED DISORDERS OF KIDNEY AND 04/30/2018 CAMPOVERDEBRYNIE Archana VENDING MACHINE HOST/HOSTESS Ot 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 04/30/2018 CAMPOVERDE RAFIQ Magaña VENDING MACHINE HOST/HOSTESS Ot I70.8 ATHEROSCLEROSIS OF OTHER ARTERIES 04/30/2018 GILLES RAFIQ Archana VENDING MACHINE HOST/HOSTESS Ot I71.4 ABDOMINAL AORTIC ANEURYSM, WITHOUT RUPTU 04/30/2018 GILLES RAFIQ Magaña VENDING MACHINE HOST/HOSTESS Ot 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0XXA OVEREXERTION FROM STRENUOUS MOVEMENT OR 05/05/2018 JUAREZ DAWSON MD, Ot Z79.82 CAD OPERATOR (CURRENT) USE OF ASPIRIN 05/05/2018 JUAREZ DAWSON MD, Ot Z79.84 CAD OPERATOR (CURRENT) USE OF ORAL HYPOGLYC 05/05/2018 JUAREZ [...] MD, Ot I25.10 ATHSCL HEART DISEASE OF [place] CORONARY 05/07/2018 JUAREZ DAWSON MD Ot I71.4 ABDOMINAL AORTIC ANEURYSM, WITHOUT RUPTU 05/07/2018 JUAREZ ADWSON MD, Ot M54.5 LOW BACK PAIN 05/07/2018 JUAREZ DAWSON MD, Ot N39.0 URINARY TRACT INFECTION, SITE NOT SPECIF 05/07/2018 JUAREZ DAWSON MD, Ot S32.030A WEDGE COMPRESSION FRACTURE OF THIRD LUMB 05/07/2018 JUAREZ DAWSON MD, Ot X50.0XXA OVEREXERTION FROM STRENUOUS MOVEMENT OR 05/07/2018 JUAREZ DAWSON MD Ot Z79.82 CAD OPERATOR (CURRENT) USE OF ASPIRIN 05/07/2018 JUAREZ DAWSON MD, Ot Z79.84 CAD OPERATOR (CURRENT) USE OF ORAL HYPOGLYC 05/07/2018 JUAREZ [...] 05/12/2018 RAFIQ CAMPOVERDE Ot 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 05/12/2018 RAFIQ CAMPOVERDE Ot [...] 724.4 LUMBOSACRAL NEURITIS NOS 05/29/2018 MAX DHILLON VENDING MACHINE HOST/HOSTESS Ot 401.1 BENIGN HYPERTENSION 05/29/2018 MAX DHILLON VENDING MACHINE HOST/HOSTESS Ot 424.1 AORTIC VALVE DISORDER 05/29/2018 MAX DHILLON VENDING MACHINE HOST/HOSTESS Ot 785.2 CARDIAC MURMURS NEC 05/29/2018 MAX DHILLON VENDING MACHINE HOST/HOSTESS Ot 786.05 SHORTNESS OF BREATH 05/29/2018 ANDRE [...] CCDS Ot I25.10 ATHSCL HEART DISEASE OF [place] CORONARY 05/29/2018 BISHNU ROLDAN FACC, ALI FACP [...] CCDS Ot I25.10 ATHSCL HEART DISEASE OF [place] CORONARY 05/29/2018 BISHNU ROLDAN FACC, ALI FACP CCDS Ot I48.0 PAROXYSMAL ATRIAL FIBRILLATION 05/29/2018 BISHNU ROLDAN FACC, ALI FACP CCDS Ot I65.29 OCCLUSION AND STENOSIS OF UNSPECIFIED CA 05/29/2018 BISHNU ROLDAN FACC, ALI FACP CCDS Ot E78.4 OTHER HYPERLIPIDEMIA 05/29/2018 BISHNU ROLDAN FACC, ALI FACP CCDS Ot I10 ESSENTIAL (PRIMARY) HYPERTENSION 05/29/2018 [facility], [facility] CCDS Ot I25.10 ATHSCL HEART DISEASE OF [place] CORONARY 05/29/2018 BISHNU [facility], ALI FACP CCDS Ot I48.0 PAROXYSMAL ATRIAL FIBRILLATION 05/29/2018 BISHNU [facility], ALI FACP CCDS Ot I71.4 ABDOMINAL AORTIC ANEURYSM, WITHOUT RUPTU 05/29/2018 LUL NORWOOD MD Ot R32 UNSPECIFIED URINARY INCONTINENCE 05/29/2018 LUL NORWOOD MD Ot R33.9 RETENTION OF URINE, UNSPECIFIED 05/29/2018 LUL NORWOOD MD Ot Z01.818 ENCOUNTER FOR OTHER PREPROCEDURAL EXAMIN 05/29/2018 SATHISH ABAD VENDING MACHINE HOST/HOSTESS Ot 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 05/29/2018 SATHISH ABAD VENDING MACHINE HOST/HOSTESS Ot 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 05/29/2018 SATHISH ABAD L VENDING MACHINE HOST/HOSTESS Ot I71.4 ABDOMINAL AORTIC ANEURYSM, WITHOUT RUPTU 05/29/2018 SATHISH ABAD VENDING MACHINE HOST/HOSTESS Ot K42.9 UMBILICAL HERNIA WITHOUT OBSTRUCTION OR 05/29/2018 SATHISH ABAD VENDING MACHINE HOST/HOSTESS Ot K76.89 OTHER SPECIFIED DISEASES OF LIVER 05/29/2018 SATHISH ABAD VENDING MACHINE HOST/HOSTESS Ot N28.1 CYST OF KIDNEY, ACQUIRED 05/29/2018 SATHISH ABAD VENDING MACHINE HOST/HOSTESS Ot 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 05/29/2018 SATHISH ABAD VENDING MACHINE HOST/HOSTESS Ot 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 05/29/2018 SATHISH ABAD VENDING MACHINE HOST/HOSTESS Ot I71.4 ABDOMINAL AORTIC ANEURYSM, WITHOUT RUPTU 05/29/2018 SATHISH ABAD VENDING MACHINE HOST/HOSTESS Ot I77.2 RUPTURE OF ARTERY 05/29/2018 SATHISH ABAD VENDING MACHINE HOST/HOSTESS Ot J43.9 EMPHYSEMA, UNSPECIFIED 05/29/2018 SATHISH ABAD VENDING MACHINE HOST/HOSTESS Ot 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 AT [...] CCDS Ot I25.10 ATHSCL HEART DISEASE OF [place] CORONARY 05/29/2018 BISHNU ROLDAN FACC, CHELLE HDEZP CCDS Ot I48.0 PAROXYSMAL ATRIAL FIBRILLATION 05/29/2018 IBSHNU ROLDAN FACC, CHELLE HDEZP CCDS Ot I71.4 ABDOMINAL AORTIC ANEURYSM, WITHOUT RUPTU 05/29/2018 BISHNU ROLDAN FAC, CHELLE WATLERS CCDS Ot R06.02 SHORTNESS OF BREATH 05/29/2018 [...] ENCOUNTER FOR PREPROCEDURAL RESPIRATORY 05/29/2018 RAFIQ CAMPOVERDE VENDING MACHINE HOST/HOSTESS Ot 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 05/29/2018 RAFIQ CAMPOVERDE VENDING MACHINE HOST/HOSTESS Ot I70.8 ATHEROSCLEROSIS OF OTHER ARTERIES 05/29/2018 RAFIQ CAMPOVERDE VENDING MACHINE HOST/HOSTESS Ot I71.4 ABDOMINAL AORTIC ANEURYSM, WITHOUT RUPTU 05/29/2018 RAFIQ CAMPOVERDE VENDING MACHINE HOST/HOSTESS Ot 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 05/29/2018 RAFIQ CAMPOVERDE VENDING MACHINE HOST/HOSTESS Ot K43.9 VENTRAL HERNIA WITHOUT OBSTRUCTION OR GA 05/29/2018 RAFIQ CAMPOVERDE VENDING MACHINE HOST/HOSTESS Ot N28.89 OTHER SPECIFIED DISORDERS OF KIDNEY AND 05/29/2018 MRACIA LUI MD F Ot I65.23 OCCLUSION AND [...] Ot J45.909 UNSPECIFIED ASTHMA, UNCOMPLICATED 09/04/2018 JENNIFER EGAN Ot N39.0 URINARY TRACT INFECTION, SITE NOT SPECIF 09/04/2018 JENNIFER EGAN Ot R10.30 LOWER ABDOMINAL PAIN, UNSPECIFIED 09/04/2018 JENNIFER EGAN Ot Z79.01 FCI (CURRENT) USE OF ANTICOAGULANT 09/04/2018 JENNIFER EGAN Ot Z79.51 CAD OPERATOR (CURRENT) USE OF INHALED STERO 09/04/2018 JENNIFER EGAN Ot Z79.82 CAD OPERATOR (CURRENT) USE OF ASPIRIN 09/04/2018 JENNIFER EGAN Ot Z79.84 FCI (CURRENT) USE OF ORAL HYPOGLYC 09/04/2018 JENNIFER [...] MAJOR DEPRESSIVE DISORDER, SINGLE EPISOD 09/11/2018 JENNIFER GEAN Ot F41.0 PANIC DISORDER [EPISODIC PAROXYSMAL ANXI 09/11/2018 JENNIFER EGAN Ot J45.909 UNSPECIFIED ASTHMA, UNCOMPLICATED 09/11/2018 JENNIFER EGAN Ot N39.0 URINARY TRACT INFECTION, SITE NOT SPECIF 09/11/2018 JENNIFER EGAN Ot R10.30 LOWER ABDOMINAL PAIN, UNSPECIFIED 09/11/2018 JENNIFER EGAN Ot Z79.01 FCI (CURRENT) USE OF ANTICOAGULANT 09/11/2018 JENNIFER EGAN Ot Z79.51 FCI (CURRENT) USE OF INHALED STERO 09/11/2018 JENNIFER EGAN Ot Z79.82 CAD OPERATOR (CURRENT) USE OF ASPIRIN 09/11/2018 JENNIFER EGAN Ot Z79.84 CAD OPERATOR (CURRENT) USE OF ORAL HYPOGLYC 09/11/2018 JENNIFER [...] CCDS Ot I25.10 ATHSCL HEART DISEASE OF [place] CORONARY 04/06/2019 BISHNU MD FACC, ALI FACP CCDS Ot I48.0 PAROXYSMAL ATRIAL FIBRILLATION 04/06/2019 BISHNU FACC, ALI FACP CCDS Ot I65.29 OCCLUSION AND STENOSIS OF UNSPECIFIED CA 04/06/2019 BISHNU FACC, ALI FACP CCDS Ot R06.02 SHORTNESS OF BREATH 04/06/2019 BISHNU FACC, ALI FACP CCDS Ot E78.5 HYPERLIPIDEMIA, UNSPECIFIED 04/06/2019 BISHNU MD FAC, ALI FACP CCDS Ot I10 ESSENTIAL (PRIMARY) HYPERTENSION 04/06/2019 BISHNU [facility], ALI FACP CCDS Ot I25.10 ATHSCL HEART DISEASE OF [place] CORONARY 04/06/2019 BISHNU ROLDAN [facility], ALI FACP CCDS Ot I48.0 PAROXYSMAL ATRIAL FIBRILLATION 04/06/2019 BISHNU [facility], ALI FACP CCDS Ot I65.29 OCCLUSION AND STENOSIS OF UNSPECIFIED CA 04/06/2019 BISHNU [facility], ALI FACP CCDS Ot E78.4 OTHER HYPERLIPIDEMIA 04/06/2019 BISHNU [facility], ALI FACP CCDS Ot I10 ESSENTIAL (PRIMARY) HYPERTENSION 04/06/2019 BISHNU [facility], ALI FACP CCDS Ot I25.10 ATHSCL HEART DISEASE OF [place] CORONARY 04/06/2019 BISHNU ROLDAN [facility], ALI FACP CCDS Ot I48.0 PAROXYSMAL ATRIAL FIBRILLATION 04/06/2019 BISHNU [facility], ALI FACP CCDS Ot I71.4 ABDOMINAL AORTIC ANEURYSM, WITHOUT RUPTU 04/06/2019 LUL NORWOOD MD Ot R32 UNSPECIFIED URINARY INCONTINENCE 04/06/2019 LUL NORWOOD MD Ot R33.9 RETENTION OF URINE, UNSPECIFIED 04/06/2019 LUL NORWOOD MD Ot Z01.818 ENCOUNTER FOR OTHER PREPROCEDURAL EXAMIN 04/06/2019 SATHISH ABAD VENDING MACHINE HOST/HOSTESS Ot 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 04/06/2019 SATHISH ABAD VENDING MACHINE HOST/HOSTESS Ot 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 04/06/2019 SATHISH ABAD VENDING MACHINE HOST/HOSTESS Ot I71.4 ABDOMINAL AORTIC ANEURYSM, WITHOUT RUPTU 04/06/2019 SATHISH ABAD VENDING MACHINE HOST/HOSTESS Ot K42.9 UMBILICAL HERNIA WITHOUT OBSTRUCTION OR 04/06/2019 SATHISH ABAD VENDING MACHINE HOST/HOSTESS Ot K76.89 OTHER SPECIFIED DISEASES OF LIVER 04/06/2019 SATHISH ABAD VENDING MACHINE HOST/HOSTESS Ot N28.1 CYST OF KIDNEY, ACQUIRED 04/06/2019 SATHISH ABAD VENDING MACHINE HOST/HOSTESS Ot 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 04/06/2019 SATHISH ABAD VENDING MACHINE HOST/HOSTESS Ot 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 04/06/2019 SATHISH ABAD VENDING MACHINE HOST/HOSTESS Ot I71.4 ABDOMINAL AORTIC ANEURYSM, WITHOUT RUPTU 04/06/2019 SATHISH ABAD VENDING MACHINE HOST/HOSTESS Ot I77.2 RUPTURE OF ARTERY 04/06/2019 SATHISH ABAD VENDING MACHINE HOST/HOSTESS Ot J43.9 EMPHYSEMA, UNSPECIFIED 04/06/2019 SATHISH ABAD VENDING MACHINE HOST/HOSTESS Ot 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 AT [...] CCDS Ot I25.10 ATHSCL HEART DISEASE OF [place] CORONARY 04/06/2019 BISHNU ROLDAN FACC, CHELLE FACP [...] 04/06/2019 RAFIQ CAMPOVERDE Ot 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 04/06/2019 RAFIQ CAMPOVERDEP Ot I70.8 ATHEROSCLEROSIS OF OTHER ARTERIES 04/06/2019 RAFIQ CAMPOVERDEP Ot I71.4 ABDOMINAL AORTIC ANEURYSM, WITHOUT RUPTU 04/06/2019 RAFIQ CAMPOVERDEP Ot 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 04/06/2019 RAFIQ CAMPOVERDEP Ot K43.9 VENTRAL HERNIA WITHOUT OBSTRUCTION OR GA 04/06/2019 RAFIQ CAMPOVERDEP Ot N28.89 OTHER SPECIFIED DISORDERS OF KIDNEY AND 04/07/2019 SHAHNAZ MARQUEZP Ot R05 COUGH 04/08/2019 SHAHNAZ MARQUEZP Ot R05 COUGH Procedures Code [place] [address] INDIV PSYTX 45/50 MIN 10/22/2012 15572 ROUTINE VENIPUNCTURE 10/24/2012 00282 BMP 10/24/2012 71025 MAGNESIUM 10/24/2012 0583966 GFR CALC (RESULT ONLY) 10/24/2012 2000F BLOOD PRESSURE CHECK 11/14/2012 56137 ROUTINE VENIPUNCTURE 01/15/2013 81337 BMP 01/15/2013 0422787 GFR CALC (RESULT ONLY) 01/15/2013 66250 LIPID PANEL 01/15/2013 53882 ROUTINE VENIPUNCTURE 05/06/2013 99021 A1C (IN-HOUSE) 05/06/2013 69829 CMP 05/06/2013 11562 MAGNESIUM 05/06/2013 9646900 GFR CALC (RESULT ONLY) 05/06/2013 99290 CPK 05/06/2013 89431 PSYTX PT&/FAMILY 45 MINUTES 05/14/2013 88920 OXIMETRY 07/01/2013 J7613 ALBUTEROL UNIT DOSE FORM INHALED 07/01/2013 J2930 SOLUMEDROL INJ 07/02/2013 04664 THERAPUTIC INJ SQ/IM 07/02/2013 40839 OXIMETRY 07/02/2013 2000F BLOOD PRESSURE CHECK 07/02/2013 G0008 FLU ADMINISTRATION (MEDICARE ONLY) 08/06/2013 68305 OXIMETRY 08/13/2013 55990 ROUTINE VENIPUNCTURE 08/31/2013 52176 GLUCOSE 08/31/2013 63624 LIPID PANEL 08/31/2013 26256 A1C (IN-HOUSE) 09/08/2013 83091 XRAY CHEST 2 VIEW 11/12/2013 47170 MEASURE BLOOD OXYGEN LEVEL 11/12/2013 39402 THERAPUTIC INJ SQ/IM 12/11/2013 J2930 SOLUMEDROL INJ 12/11/2013 30149 A1C (IN-HOUSE) 12/11/2013 43180 ROUTINE VENIPUNCTURE 12/15/2013 98192 EKG, TRACING (IN-HOUSE) 12/15/2013 41658 XRAY CHEST 2 VIEW 12/15/2013 19460 ECHO 2D 12/15/2013 43182 OXIMETRY 12/15/2013 97413 CBC 12/15/2013 2622740 GFR CALC (RESULT ONLY) 12/15/2013 77079 CMP 12/15/2013 22574 MAGNESIUM 12/15/2013 88486 BNP 12/16/2013 37390 ROUTINE VENIPUNCTURE 01/13/2014 47788 OXIMETRY 01/13/2014 5010008 GFR CALC (RESULT ONLY) 01/14/2014 58766 CMP 01/14/2014 76096 MAGNESIUM 01/14/2014 17170 OXIMETRY 01/28/2014 27829 ROUTINE VENIPUNCTURE 03/24/2014 56001 LIPID PANEL 03/24/2014 31707 ROUTINE VENIPUNCTURE 07/02/2014 2599091 GFR CALC (RESULT ONLY) 07/02/2014 58543 CMP 07/02/2014 48002 LIPID PANEL 07/02/2014 52860 [employer] 08/17/2014 43451 US SOFT TISSUE (SPECIFY LOCATION) 09/15/2014 CARDIOLOG BISHNUCHELLE DIEHL 09/15/2014 G0008 FLU ADMINISTRATION (MEDICARE ONLY) 09/15/2014 PULMONARY WILL CASPER 09/15/2014 19331 US ABDOMINAL ULTRASOUND, COMPLETE 11/26/2014 97126 LEFT HEART CATH 01/25/2015 15875 US CAROTID DOPPLER 01/25/2015 66172 OXIMETRY 01/25/[address] ANGIO, EXTREMITY, LOWER 02/08/2015 Results Test [...] culture - 12/14/17 20:50 Bacterial urine culture [id number] NRG COLONY COUNT <10,000 NRG MRSA AGAR [...] culture - 02/16/18 09:30 Bacterial urine culture [id number] NRG COLONY COUNT 10,000/ML - 100,000/ML NRG [...] Status Pt. Type Provider Facility Loc./Unit Complaint [id number] 03/18/2015 16:54:00 03/18/2015 23:59:59 CLS Outpatient SHANIQUE VEGA MD [id number] 01/25/2015 09:06:00 01/25/2015 23:59:59 CLS Outpatient SHARIF JOHNSON MD [id number] 12/06/2014 05:51:00 12/06/2014 23:59:59 CLS Outpatient SHANIQUE VEGA MD [id number] 11/26/2014 15:23:00 11/26/2014 23:59:59 CLS Outpatient SHARIF JOHNSON MD [id number] 11/26/2014 15:23:00 11/26/2014 23:59:59 CLS Outpatient SHARIF JOHNSON MD [id number] 11/13/2014 15:20:00 11/13/2014 23:59:59 CLS Outpatient MIKE HAZEL DO [id number] 10/27/2014 13:31:00 10/27/2014 23:59:59 CLS Outpatient MASSIEL VEGA [id number] 09/15/2014 16:03:00 09/15/2014 23:59:59 CLS Outpatient SHARIF JOHNSON MD [id number] 08/17/2014 15:49:00 08/17/2014 23:59:59 CLS Outpatient SHARIF JOHNSON MD [id number] 07/29/2014 10:54:00 07/29/2014 23:59:59 CLS Outpatient JOVANNI BURGOSDESI [id number] 07/02/2014 11:34:00 07/02/2014 23:59:59 CLS Outpatient SHARIF JHONSON MD [id number] 06/18/2014 14:51:00 06/18/2014 23:59:59 CLS Outpatient SHARIF JOHNSON MD [id number] 06/02/2014 14:58:00 06/02/2014 23:59:59 CLS Outpatient JOVANNI BURGOSDESI [id number] 05/18/2014 14:07:00 05/18/2014 23:59:59 CLS Outpatient SHARIF JOHNSON MD [id number] 03/24/2014 15:01:00 03/24/2014 23:59:59 CLS Outpatient SHARIF JOHNSON MD [id number] 03/11/2014 13:43:00 03/11/2014 23:59:59 CLS Outpatient SHARIF JOHNSON MD [id number] 01/28/2014 14:29:00 01/28/2014 23:59:59 CLS Outpatient SHARIF JOHNSON MD [id number] 01/28/2014 14:29:00 01/28/2014 23:59:59 CLS Outpatient SHARIF JOHNSON MD [id number] 01/13/2014 15:39:00 01/13/2014 23:59:59 CLS Outpatient CAROLINE MENDOZA MD [id number] 01/13/2014 15:39:00 01/13/2014 23:59:59 CLS Outpatient CAROLINE MENDOZA MD [id number] 12/15/2013 15:34:00 12/15/2013 23:59:59 CLS Outpatient MIKE HAZEL DO [id number] 12/15/2013 15:34:00 12/15/2013 23:59:59 CLS Outpatient MAX DHILLON APRN [id number] 12/11/2013 11:52:00 12/11/2013 23:59:59 CLS Outpatient MAX DHILLON APRN [id number] 11/12/2013 16:30:00 11/12/2013 23:59:59 CLS Outpatient SHAHNAZ MARQUEZ APRN [id number] 11/09/2013 12:50:00 11/09/2013 23:59:59 CLS Outpatient AUDIE MARC APRN [id number] 11/03/2013 09:32:00 11/03/2013 23:59:59 CLS Outpatient DESI BAIG APRN [id number] 10/20/2013 09:44:00 10/20/2013 23:59:59 CLS Outpatient DESI BAIG APRN [id number] 09/22/2013 14:05:00 09/22/2013 23:59:59 CLS Outpatient CAROLINE MENDOZA MD [id number] 09/08/2013 08:20:00 09/08/2013 23:59:59 CLS Outpatient CAROLINE MENDOZA MD [id number] 08/31/2013 08:05:00 08/31/2013 23:59:59 CLS Outpatient CAROLINE MENDOZA MD [id number] 08/07/2013 11:43:00 08/07/2013 23:59:59 CLS Outpatient MARIA DE JESUS BUTLER DO [id number] 01/22/2013 09:37:00 01/22/2013 23:59:59 CLS Outpatient MARIA DE JESUS BUTLER DO [id number] 01/15/2013 10:49:00 01/15/2013 23:59:59 CLS Outpatient CRAOLINE MENDOZA MD [id number] 01/15/2013 10:49:00 01/15/2013 23:59:59 CLS Outpatient CAROLINE MENDOZA MD [id number] 12/23/2012 13:28:00 12/23/2012 23:59:59 CLS Outpatient MARIA DE JESUS BUTLER DO [id number] 11/24/2012 14:22:00 11/24/2012 23:59:59 CLS Outpatient MIKE HAZEL DO [id number] 11/14/2012 13:45:00 11/14/2012 23:59:59 CLS Outpatient MIKE HAZEL DO [id number] 10/24/2012 13:17:00 10/24/2012 23:59:59 CLS Outpatient SHANIQUE VEGA MD [id number] 10/24/2012 13:17:00 10/24/2012 23:59:59 CLS Outpatient [id number] 10/21/2012 10:34:00 10/21/2012 23:59:59 CLS Outpatient [id number] 09/11/2012 11:29:00 09/11/2012 23:59:59 CLS Outpatient MARIA DE JESUS BUTLER DO [id number] 07/27/2013 11:07:00 Document Registration [id number] 07/02/2013 08:45:00 Document Registration [id number] 07/01/2013 11:44:00 Document Registration [id number] 07/01/2013 11:44:00 Document Registration [id number] 06/05/2013 08:35:00 Document Registration [id number] 05/13/2013 09:45:00 Document Registration [id number] 05/06/2013 10:52:00 Document Registration [id number] 04/21/2013 11:00:00 Document Registration [id number] 03/13/2013 11:19:00 Document Registration [id number] 04/06/2019 10:26:00 04/06/2019 23:59:59 CLS Outpatient SHAHNAZ MARQUEZ VENDING MACHINE HOST/HOSTESS [facility] RAD R05 COUGH [id number] 09/04/2018 11:17:00 09/04/2018 15:02:00 DIS Emergency JENNIFER EGAN [facility] ER PAIN AROUND CATH [id number] 05/05/2018 05:12:00 05/05/2018 10:27:00 DIS Emergency JUAREZ DAWSON MD [facility] ER BACK PAIN [id number] 04/10/2018 13:32:00 04/10/2018 23:59:59 CLS Outpatient RAFIQ CAMPOVERDE VENDING MACHINE HOST/HOSTESS [facility] RAD ABDOMINAL AORTIC ANEURYSM, ILIAC ANEURYSYM [id number] 04/01/2018 07:46:00 04/01/2018 14:20:00 DIS Outpatient BISHNU ROLDAN FACC, CHELLE WALTERS CCDS [facility] CATH PERIPHERAL ANGIOGRAPHY [id number] 03/12/2018 09:18:00 03/12/2018 23:59:59 CLS Outpatient MARCIA LUI MD [facility] CARD PREOP Z01.810 Z01.818 [id number] 03/05/2018 08:57:00 03/05/2018 23:59:59 CLS Outpatient BISHNU ROLDAN FACCCHELLE FACP CCDS [facility] CARD SOB [id number] 02/16/2018 10:58:00 02/16/2018 23:59:59 CLS Outpatient SHANIQUE VEGA MD [facility] CVS UTI [id number] 02/10/2018 10:54:00 02/10/2018 23:59:59 CLS Outpatient MARCIA LUI MD [facility] CARD CAROTID ARTERY STENOSIS,BILATERAL [id number] 12/23/2017 10:16:00 12/23/2017 23:59:59 CLS Outpatient MARCIA LUI MD [facility] CARD Z01.810,Z01.818 [id number] 2017 20:15:00 2017 22:55:00 DIS Emergency GREGORY ROLDAN, JESSICA Adhikari [facility] ER WENT UNRESPONSIVE,HIT HEAD, VCV [id number] 12/02/2017 07:48:00 12/02/2017 23:59:59 CLS Outpatient SATHISH ABAD [facility] RAD I65.23 [id number] 11/26/2017 21:20:00 11/27/2017 11:41:00 DIS Inpatient PRUDENCE SHAW MD [facility] 4TH UROSEPSIS,ABDOMINAL PAIN,FEVER [id number] 11/26/2017 07:18:00 11/26/2017 15:18:00 DIS Outpatient LUL NORWOOD MD [facility] SDC INCONTINENCE,RETENTION [id number] 11/25/2017 13:20:00 11/25/2017 23:59:59 CLS Outpatient SATHISH ABAD [facility] RAD CAROTID ARTERY STENOSIS [id number] 11/19/2017 05:29:00 11/19/2017 14:39:00 DIS Outpatient LUL NORWOOD MD [facility] PREOP INCONTINENCE,RETENTION [id number] 11/04/2017 05:57:00 11/04/2017 23:59:59 CLS Outpatient LUL NORWOOD MD [facility] PREOP INCONTINENCE,RETENTION [id number] 10/15/2017 07:43:00 10/15/2017 23:59:59 CLS Outpatient BISHNU ROLDAN FACC, ALI FACP CCDS [facility] RAD AAA [id number] 10/15/2017 07:43:00 10/15/2017 14:13:00 DIS Outpatient BISHNU ROLDAN FACC, ALI FACP CCDS [facility] CATH AAA,CAD,PAF,HTN [id number] 10/08/2017 07:01:00 10/08/2017 23:59:59 CLS Outpatient BISHNU ROLDAN FACC, ALI FACP CCDS [facility] CARD R06.02 SOB [id number] 10/04/2017 13:16:00 10/04/2017 23:59:59 CLS Outpatient BISHNU ROLDAN FACC, ALI FACP CCDS [facility] CARD SOB [id number] 10/04/2017 07:15:00 10/04/2017 23:59:59 CLS Preadmit BISHNU ROLDAN FACC, ALI FACP CCDS [facility] CARD SOB [id number] 02/12/2017 05:56:00 02/12/2017 11:40:00 DIS Outpatient LUL NORWOOD MD [facility] OAB [id number] 02/06/2017 09:39:00 02/06/2017 13:57:00 DIS Outpatient LUL NORWOOD MD [facility] PREOP OAB [id number] 11/27/2016 06:58:00 11/28/2016 16:00:00 DIS Outpatient LUL NORWOOD MD [facility] ISD [id number] 11/22/2016 10:00:00 11/22/2016 13:00:00 DIS Outpatient LUL NORWOOD MD [facility] PREOP ISD [id number] 05/14/2016 15:45:00 05/16/2016 13:05:00 DIS Inpatient VALERIA ROLDAN, PRUDENCE Garcia [facility] 4TH R SIDE ABD PAIN, N/V,LEUKOCYTOSIS [id number] 12/07/2015 07:47:00 12/07/2015 09:30:00 DIS Emergency TARA SOTO MD [facility] ER RT HIP PAIN [id number] 03/10/2015 11:28:00 03/15/2015 12:00:00 DIS Inpatient SHARIF JOHNSON MD [facility] CSD CHF HYPOKALEMIA FALLS THYROID DYSFUNCTION [id number] 02/27/2015 21:37:00 02/28/2015 13:30:00 DIS Inpatient SHANIQUE VEGA MD [facility] SURGICAL ALTERED MENTAL STATUS UTI [id number] 02/25/2015 03:44:00 02/25/2015 06:24:00 DIS Emergency EUNICE ROLDAN, JUAREZ Powell [facility] ER FALL,BUMP ON LFT SIDE OF HEAD [id number] 02/03/2015 17:50:00 02/24/2015 16:55:00 DIS Inpatient SASHA ROLDAN, MYRNA Mc [facility] IRF DEBILITY [id number] 12/28/2014 09:10:00 12/28/2014 17:30:00 DIS Outpatient BISHNU ROLDAN FACC, CHELLE WALTERS CCDS [facility] CATH CAD FATIGUE LOWER EXTREMITY DISCOMFORT [id number] 12/24/2014 13:00:00 12/24/2014 23:59:59 CLS Outpatient SHANIQUE VEGA MD [facility] HH POSSIBLE UTI [id number] 12/20/2014 20:00:00 12/20/2014 23:59:59 CLS Preadmit WILL CASPER DO [facility] SLEEP ARRHYTHMIAS,MOOD DISORDER,HYPOXIA [id number] 12/03/2014 09:58:00 12/03/2014 10:47:00 DIS Outpatient DIANNA MACHADO MD [facility] CARD HIP OSTEOARTHRITIS [id number] 12/02/2014 09:45:00 12/02/2014 23:59:59 CLS Preadmit ELIZABETH ROLDAN, SHARIF Menjivar [facility] RAD NAUSEA,UNABLE TO TOLERATE SOLID FOODS [id number] 11/22/2014 14:15:00 11/22/2014 23:59:59 CLS Preadmit PENNIEWILL ELISE DO [facility] RT HYPOXIA DYPSNEA [id number] 11/11/2014 11:54:00 11/11/2014 14:00:00 DIS Emergency EMANUEL WILKINSON MD [facility] ER NAUSEA [id number] 11/04/2014 17:27:00 11/05/2014 11:35:00 DIS Inpatient GARY ROLDAN, SHANIQUE Funk [facility] 4TH UTI,GENERAL MALAISE [id number] 11/01/2014 22:05:00 11/02/2014 16:45:00 DIS Inpatient MIKE HAZEL DO [facility] 4TH UTI,ALTERED MENTAL STATUS [id number] 09/25/2014 11:09:00 09/25/2014 23:59:59 CLS Outpatient [id number] 08/23/2014 12:50:00 08/23/2014 23:59:59 CLS Outpatient DIANNA MACHADO MD [facility] CARD HIP OSTEOARTHRITIS [id number] 08/02/2014 10:32:00 08/02/2014 23:59:59 CLS Outpatient ANDRE HERNANDEZ DO [facility] RAD SHOULDER PAIN [id number] 07/23/2014 08:50:00 07/23/2014 23:59:59 CLS Outpatient DIANNA MACHADO MD [facility] CARD SIJD [id number] 06/28/2014 12:46:00 06/28/2014 14:24:00 DIS Outpatient DIANNA MACHADO MD [facility] CARD HIP OSTEOARTHRITIS [id number] 06/07/2014 12:24:00 06/07/2014 14:09:00 DIS Emergency RUFINA PEREZ DO [facility] ER LEFT SHOULDER INJURY [id number] 05/24/2014 12:58:00 05/24/2014 13:45:00 DIS Outpatient DIANNA MACHADO MD [facility] CARD HIP OSTEOARTHRITIS [id number] 12/22/2013 12:42:00 12/22/2013 23:59:59 CLS Outpatient JACQUIE MAX Powell DE [facility] CARD HEART MURMUR LOWER EXT EDEMA [id number] 11/12/2013 18:13:00 11/14/2013 14:30:00 DIS Inpatient ELIZABETH ROLDAN, SHARIF Menjivar [facility] 4TH COPD EXACERBATION [id number] 07/02/2013 11:37:00 07/09/2013 12:50:00 DIS Inpatient GARY ROLDAN, SHANIQUE Funk [facility] 4TH COPD,EXACERBATION [id number] 07/02/2013 11:06:00 07/02/2013 23:59:59 CLS Emergency [id number] 06/11/2013 09:24:00 06/11/2013 23:59:59 CLS Outpatient REJI ROLDAN, CAROLINE Magaña [facility] RAD CHRONIC LOW BACK PAIN WITH RADICULOPATHY [id number] 02/17/2015 16:12:00 Document Registration [id number] 02/17/2015 16:12:00 Document Registration [id number] 02/17/2015 16:12:00 Document Registration [id number] 02/17/2015 16:12:00 Document Registration [id number] 09/30/2012 14:20:00 Document Registration [id number] 07/01/2012 14:08:00 Document Registration [id number] 03/11/2012 14:34:00 Document Registration [id number] 10/17/2011 15:30:00 Document Registration [id number] 10/09/2011 15:24:00 Document Registration [id number] 10/06/2011 09:02:00 Document Registration [id number] 07/30/2011 17:25:00 Document Registration [id number] 07/17/2011 16:12:00 Document Registration
[2019-04-16] MEDS ORDERED: ONDANSETRON 4 MG/2 ML (SDV) Z0FRAN IV PRN (19:00)
[2019-04-16] MEDS ORDERED: NS IV 1000 ML 2,490.21 ML IV ONE (19:00)
[2019-04-16] MEDS ORDERED: LORazepam INJ 2 MG/ML (ATIVAN) VIAL IV PRN (19:00)
[2019-04-16] MEDS ORDERED: LACTATED RINGERS 1,000 ML IV SCH (19:00)
[2019-04-16] MEDS ORDERED: RT-ALBUTEROL/IPRATROPIUM 3 ML (DUONEB) VIAL INH PRN (19:15)
[2019-04-16] MEDS: NOREPINEPHRINE 4 MG in NS (IVPB) 250 ML IV SCH (19:23)
[2019-04-16] MEDS: RT-ALBUTEROL/IPRATROPIUM 3 ML (DUONEB) VIAL INH SCH (19:48)
[2019-04-16] MEDS: NS IV 1000 ML 1,000 ML IV SCH (20:38)
[2019-04-16] MEDS: PANTOPRAZOLE 40 MG (PROTONIX) VIAL IV SCH (20:38)
[2019-04-17] VITALS (19 sets, daily range): BP systolic 104–154; BP diastolic 51–84
[2019-04-17] MEDS: NOREPINEPHRINE 4 MG in NS (IVPB) 250 ML IV SCH ×2 (02:22→11:08)
[2019-04-17] MEDS: NS IV 1000 ML 1,000 ML IV SCH ×5 (02:56→21:01)
[2019-04-17 03:25] LABS: BASOPHILS % (AUTO) 0 % (0-10); EOSINOPHILS # (AUTO) 0.2 10^3/uL (0.0-0.3); EOSINOPHILS % (AUTO) 1 % (0-10); HEMATOCRIT 26 % (35-52); HEMOGLOBIN 8.5 G/DL (11.5-16.0); LYMPHOCYTES % (AUTO) 18 % (12-44); MEAN CORPUSCULAR HEMOGLOBIN 29 PG (25-34); MEAN CORPUSCULAR HGB CONC 33 G/DL (32-36); MEAN CORPUSCULAR VOLUME 87 FL (80-99); MEAN PLATELET VOLUME 9.9 FL (7.4-10.4); MONOCYTES # (AUTO) 1.2 X 10^3 (0.0-1.0); MONOCYTES % (AUTO) 7 % (0-12); NEUTROPHILS # (AUTO) 12.1 X 10^3 (1.8-7.8); NEUTROPHILS % (AUTO) 74 % (42-75); PLATELET COUNT 190 10^3/uL (130-400); RED CELL DISTRIBUTION WIDTH 18.1 % (10.0-14.5); WHITE BLOOD COUNT 16.4 10^3/uL (4.3-11.0)
[2019-04-17 03:47] LABS: SODIUM 138 MMOL/L (135-145)
[2019-04-17 03:48] LABS: BUN/CREATININE RATIO 50; CARBON DIOXIDE 20 MMOL/L (21-32); CHLORIDE 112 MMOL/L (98-107); CREATININE SERUM 0.68 MG/DL (0.60-1.30)
[2019-04-17 03:49] LABS: ALANINE AMINOTRANSFERASE 12 U/L (0-55); ALBUMIN 2.6 GM/DL (3.2-4.5); ALKALINE PHOSPHATASE 36 U/L (40-136); BILIRUBIN,TOTAL 0.6 MG/DL (0.1-1.0); CALCIUM 7.5 MG/DL (8.5-10.1); GFR ESTIMATED > 60; GLUCOSE 107 MG/DL (70-105); MAGNESIUM 1.7 MG/DL (1.8-2.4); PHOSPHORUS 2.4 MG/DL (2.3-4.7); TOTAL PROTEIN 4.3 GM/DL (6.4-8.2)
[2019-04-17] MEDS ORDERED: MAGNESIUM 1 GM/100 ML IVPB 100 ML IV SCH (06:00)
[2019-04-17] MEDS ORDERED: POTASSIUM CL 10MEQ/50ML IVPB 50 ML IV SCH (06:00)
[2019-04-17] MEDS ORDERED: KCL 20 MEQ TAB (K-DUR) PO SCH (06:00)
--- NOTE | 2019-04-17 07:30 | NUR ---
Mylene left with Lnida at this time per request for time of scope. Addendum: 04/17/19 at 0736 by DESI SANCHEZ RN Linda returned call at this time, updated on pt's time of scope.
[2019-04-17] MEDS ORDERED: OXYB10TA PO ×2 (08:50)
[2019-04-17] MEDS ORDERED: IBUP-30 PO ×2 (08:50)
[2019-04-17] MEDS ORDERED: PRED5DRO24 OD ×2 (08:50)
[2019-04-17] MEDS ORDERED: MAG355OR16 PO ×2 (08:50)
[2019-04-17] MEDS ORDERED: PANT40TA3 PO ×2 (08:50)
[2019-04-17] MEDS ORDERED: GUAI237L82 PO ×2 (08:50)
[2019-04-17] MEDS ORDERED: CARB15DR OD ×2 (08:50)
[2019-04-17] MEDS ORDERED: SERT50TA9 PO ×2 (08:50)
[2019-04-17] MEDS ORDERED: ASCO-262 PO ×2 (08:50)
[2019-04-17] MEDS ORDERED: FLAVOXATE 100 MG PO ×2 (08:50)
[2019-04-17] MEDS ORDERED: MIRA25TA PO ×2 (08:50)
--- NOTE | 2019-04-17 08:54 | NUR ---
UPDATED MED REC WITH PHYSICIAN'S ORDERS FROM [facility]
[2019-04-17] MEDS ORDERED: LACTATED RINGERS 1,000 ML IV ONE (09:05)
--- NOTE | 2019-04-17 09:09 | Progress Note-Cardiology ---
Cardiology SOAP Progress Note Subjective: In bed. C/O nausea this morning and dizziness. Continues to c/o abdominal discomfort. No c/o CP or palpitations. Chronic dyspnea, unchanged. Objective: I&O/Vital Signs 04/20/19 04/20/19 04/20/19 04/20/19 00:00 01:00 04:00 07:00 Temp 97.7 98.2 Pulse 102 92 107 89 Resp 20 20 B/P (MAP) 138/69 (92) 142/70 (94) Pulse Ox 94 98 O2 Delivery Nasal Cannula Nasal Cannula O2 Flow Rate 1.00 1.00 04/20/19 04/20/19 08:00 08:31 Temp 97.8 Pulse 82 Resp 20 B/P (MAP) 121/62 (81) Pulse Ox 98 96 O2 Delivery Nasal Cannula Nasal Cannula O2 Flow Rate 1.00 2.00 04/20/19 00:00 Intake Total 2340 ml Output Total 2900 ml Balance -560 ml Weight (Pounds): 189 Weight (Ounces): 3.0 Weight (Calculated Kilograms): 85.214163 Constitutional: AAO x 3, well-developed, well-nourished Respiratory: No accessory muscle use, No respiratory distress; rhonchi (scattered), other (SOB with conversation) Cardiovascular: irregularly irregular; No JVD; tachycardia, S1 and S2, systolic murmur Gastrointestional: tender, audible bowel sounds (hyperactive) Extremities: no lower extremity edema bilateral Neurologic/Psychiatric: grossly intact Skin: normal color, warm/dry Results/Procedures: Labs Laboratory Tests 04/20/19 06:55: White Blood Count 10.4, Red Blood Count 2.92L, Hemoglobin 8.5L, Hematocrit 27L, Mean Corpuscular Volume 91, Mean Corpuscular Hemoglobin 29, Mean Corpuscular Hemoglobin Concent 32, Red Cell Distribution Width 18.5H, Platelet Count 223, Mean Platelet Volume 10.1, Neutrophils (%) (Auto) 87H, Lymphocytes (%) (Auto) 9L , Monocytes (%) (Auto) 4, Eosinophils (%) (Auto) 0, Basophils (%) (Auto) 0, Neutrophils # (Auto) 9.1H, Lymphocytes # (Auto) 0.9L, Monocytes # (Auto) 0.5, Eosinophils # (Auto) 0.0, Basophils # (Auto) 0.0, Absolute Reticulocyte Count 153H, Percent Reticulocyte Count 5.25H, Sodium Level 139, Potassium Level 3.6, Chloride Level 108H, Carbon Dioxide Level 24, Anion Gap 7, Blood Urea Nitrogen 8, Creatinine 0.67, Estimat Glomerular Filtration Rate > 60, BUN/Creatinine Ratio 12, Glucose Level 188H, Calcium Level 8.1L Microbiology 04/16/19 Blood Culture - Preliminary, Resulted No growth 04/16/19 MRSA Screen - Final, Complete MRSA not isolated 04/16/19 Urine Culture - Final, Complete Mixed Bacterial Tanika Morganella morganii A/P: Assessment: GI bleed with hypovolemic shock Suspected UTI with possible sepsis Severe bilateral ICA stenoses; s/p R CEA with Dr Valenzuela at [facility] in Dec 2017; s/p L carotid PCI at [facility] in January 2018 (Dr Valenzuela) Chronic dyspnea likely multi-factorial: COPD and diastolic dysfunction and physical deconditioning. Prolonged hospitalization post-CABG for physical deconditioning in 2014 Atrial fibrillation/flutter of unknown duration, first documented on an ECG of 09/27/17 at [facility] Eliquis for stroke prophylaxis - hold for now H/o old lacunar infarction, including R internal capsule (based on w/u of Dec 2017 at [facility]) S/P right hip replacement Fall due to loss of balance (tripped over walker), no syncope, on 03/10/15 Acute on chronic diastolic CHF on 03/10/15 CAD - s/p [address] Maza at [facility] in : GREY to LAD, SVG to OM1 and SVG to PDA. Cardiac cath of Oct 15, 2017 (done following an MPI that showed apical ischemia) showed widely patent aortocoronary graft to the distal RCA, widely patent aortocoronary graft to OM system, widely patent left internal mammary artery graft to the distal LAD, normal to hyperdynamic LV systolic function with an ejection fraction of approx 70%, normal LVEDP, no evidence of thoracic aortic aneurysm or dissection, mod-sized infrarenal abdominal aortic aneurysm, mild prox stenosis of the left renal artery. For whi ch she has been maintained on ASA and Plavix Peripheral angiogram with runoffs of March 2018: Moderate-sized, infrarenal, saccular abdominal aortic aneurysm. A 70% ostial and proximal stenoses of the renal arteries on both sides. 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 Proximal occlusion of the right superficial femoral artery which reconstitutes via collaterals in its distal portion. There is a 2- vessel runoff in the leg. Multiple up to 75% stenoses in the mid and distal portions of the left superficial femoral artery. For these findings she was referred to [facility] Echo of 03/05/18 showed LVEF 75-80%, grade 3 mcqueen dysfunction, PASP 45 mmHg, mod biatrial enlartgement, AoV sclerosis, and mild to mod TR COPD Tobaccoism, quit 2009 HTN H/o hypothyroidism that is followed by her fam phy S/P suprapubic catheter placement per Dr. James on 11-26-2017 Plan: * Complex management issue due to multiple comorbidities * Replenish blood and fluid volume * Identify source of bleeding and treat that. Hold antiplatelet agents and anticoag until then. Resume these when source of bleed fully treated. We advise this be done expediently * Hold bp-lowering meds * Probable UTI with suspected sepsis - management per Medical Services * Monitor lab closely * GI scopes to be done later today by Dr. Ibrahim Physician Assessment Physician Assessment This is late entry for my visit to the patient on 04/17/19 at approx 2:30 pm Gen weakness and malaise and exertional shortness of breath Lungs: fair to good air entry, diminished at the bases Cor: irreg Ext: no c/c/e A&R * As documented in our note above that I updated (italics) and as noted below * Monitor labs * Continue current regimen SATHISH ABAD [facility] April 17, 2019 09:09 CHELLE GOETZ MD FACP FAC CCDS April 17, 2019 11:49
--- NOTE | 2019-04-17 09:15 | Diagnostic Imaging Report ---
INDICATION: Dyspnea. Frontal chest obtained at 3:50 a.m. and compared to yesterday. FINDINGS: There is poststernotomy change with cardiomegaly. There is no change in diffuse interstitial prominence. There is no pneumothorax or pleural fluid. IMPRESSION: Cardiomegaly with poststernotomy change. Stable chronic interstitial prominence compared to yesterday. No new infiltrate or pneumothorax or pleural fluid. Dictated by: Dictated on workstation # [id number]
[2019-04-17] MEDS ORDERED: proPOfol 200 MG/20 ML (DIPRIVAN) VIAL IV ONE (09:28)
[2019-04-17] MEDS ORDERED: MIDAZOLAM 2 MG/2 ML (VERSED) VIAL ONE (09:29)
--- NOTE | 2019-04-17 09:56 | Progress Note-Post Operative ---
Post-Operative Progess Note Surgeon (s)/Video Production Specialist (s) Surgeon MYRNA MCCOY DO Video Production Specialist: none Pre-Operative Diagnosis GI bleed, anemia Post-Operative Diagnosis Same, Pre-pyloric artery with clot and ulcer Procedure & Operative Findings Date of Procedure 04/17/19 Procedure Performed/Findings EGD with bx Anesthesia Type IV sedation by PUBLIC HEALTH MICROBIOLOGIST Estimated Blood Loss Estimated blood loss (mL): scant Specimens/Packing Specimens Removed antral bx MYRNA MCCOY DO April 17, 2019 09:56
[2019-04-17] MEDS: CEFEPIME 2,000 MG/SWFI 20 ML IV PUSH IV SCH ×2 (10:20)
[2019-04-17] MEDS: PANTOPRAZOLE 40 MG (PROTONIX) VIAL IV SCH ×2 (10:21→21:00)
[2019-04-17] MEDS: RT-ALBUTEROL/IPRATROPIUM 3 ML (DUONEB) VIAL INH SCH ×2 (10:23→22:34)
[2019-04-17] MEDS: fentaNYL INJECTION 100 MCG/2 ML AMP IV PRN ×3 (10:29→22:43)
[2019-04-17] MEDS: SUCRALFATE 1 GM (CARAFATE) TAB PO SCH ×3 (11:08→21:01)
[2019-04-17] MEDS ORDERED: ANTACID SUSP 30 ML UDC (MYLANTA) ONE (12:16)
[2019-04-17] MEDS ORDERED: ANTACID SUSP 30 ML UDC (MYLANTA) PO PRN ×2 (12:30→16:15)
--- NOTE | 2019-04-17 14:27 | OPERATIVE REPORT ---
DATE OF SERVICE: PREOPERATIVE DIAGNOSES: Gastrointestinal bleed, anemia. POSTOPERATIVE DIAGNOSES: Gastrointestinal bleed, anemia, bleeding with prepyloric ulcer and signs of bleeding artery. PROCEDURE: EGD with biopsy. SURGEON: Dr. Ibrahim. SEISMOGRAPH OBSERVER: None. ANESTHESIA: IV sedation by the DEVELOPMENT ASSISTANT. SPECIMEN: Antral biopsy. BLOOD LOSS: Scant. FLUIDS: Per anesthesia. POSTOPERATIVE CONDITION: Stable. INDICATION FOR PROCEDURE: The patient is an 83-year-old female who came in with anemia and black melanotic stool as well as vomiting black liquid. The patient AFib, on Eliquis and needed a workup to find the source of her bleeding. FINDINGS: The patient had an ulcer the prepylorus and had a visible vessel with a blood clot on top of it. Pictures taken and biopsy done just outside the ulcer. PROCEDURE NOTE: After informed consent was obtained, the patient was brought to the endoscopy suite, she was supine with a little bit of a roll onto her right side. The DEVELOPMENT ASSISTANT gave IV sedation and then monitored her vitals the entire time, heart rate, blood pressure and pulse ox and the scope was inserted down the mouth through the esophagus into the stomach. Upon entering the stomach, pushed towards the pylorus and then just in the prepyloric area saw what looked like a vessel coming up out of an ulcer with a blood clot over the top of it. Elected not to do anything with this, but just to the side of it, elected to do a biopsy. biopsy was obtained. This is right prepylorus in the antrum. Pushed in the duodenum, duodenum looks fine. Pulled back, retroflexed the scope, not really seen any hiatal hernia. GE junction looked good. Again elected to leave this alone, did not want to cause more bleeding. Pulled the scope up the esophagus out of the mouth. The patient tolerated the procedure and recovered in the endoscopy suite. Job ID: [id number] DocumentID: [id number] Dictated Date: 04/17/2019 09:51:04 Mission Planner Date: 04/17/2019 14:26:16 Dictated By: MYRNA IBRAHIM DO
[2019-04-17] MEDS ORDERED: ACETAMINOPHEN 325 MG TABLET PO PRN (15:30)
[2019-04-17] MEDS ORDERED: NON-FORMULARY MEDICATION 1 EA EA (Ondansetron HCl 4 MG) PO PRN (15:30)
[2019-04-17] MEDS ORDERED: NON-FORMULARY MEDICATION 1 EA EA (Mag Hydrox/Aluminum Hyd/Simeth (Maalox Advanced Suspensi PO PRN (15:30)
--- NOTE | 2019-04-17 15:33 | NUR ---
Initial visit: pt is Sabianist and Rastafarian by affiliation. She was raised Mu-Ism and her was raised Denominational. He became a Rastafarian supervisor sanding after they were , which the pt reflects upon fondly. She said, "Those twenty years he was a python java developer were the best years of my life." Her following compilations of Alzheimer's disease. She shared being afraid initially when she was being transferred to the hospital, but when the thought occurred to her that she might not live, she experienced a prevailing peace. The pt said this comforts because she feels that when the time comes for her to she will be ready. Pt states her children have been in contact with her by phone, and her daughter who was estranged from her in recent years has been calling. The patient said their rift was caused by her sister in law. The pt's brother has since , and while the pt is uncertain why her daughter has reconnected with her, it makes her glad. She said, I look forward to her calling again tonight." The pt requested prayer and thanked block feeder for visiting. Pt lives in Assisted Living at [facility] and has developed a trusting pastoral relationship with this block feeder during her time there.
[2019-04-17] MEDS ORDERED: FUROSEMIDE 20 MG (LASIX) TAB ONE (15:51)
[2019-04-17] MEDS: FUROSEMIDE 20 MG (LASIX) TAB PO SCH (15:56)
[2019-04-17] MEDS ORDERED: guaiFENesin/DM (ROBITUSSIN DM) 10 ML UDC PO PRN (16:15)
[2019-04-17] MEDS ORDERED: ONDANSETRON 4 MG (ZOFRAN) ORAL DISSOLVE TAB PO PRN (16:15)
--- NOTE | 2019-04-17 16:17 | NUR ---
REPORT RECEIVED FROM CHRONIC DISEASE MANAGER BOBBI, ASSUMED CARE OF THE PATIENT AT THIS TIME. PT TO ROOM VIA ICU BED. PATIENT DENIES ANY COMPLAINTS OR NEEDS AT THIS TIME. WILL CONTINUE TO MONITOR
--- NOTE | 2019-04-17 17:54 | History & Physicial (CHS) ---
HPI History of Present Illness: 83 yo came to ER due to onset of diarrhea and vomiting and dizziness, noted black vomit and stool x 2 days or so. Source: patient Date seen by provider: April 17, 2019 Time Seen by Provider: 11:25 Attending Physician Sharif Marcelo MD PCP Itz Chacon MD Consult MYRNA MCCOY DO Date of Admission April 16, 2019 at 17:00 Home Medications Home Medications Reviewed patient Home Medication Reconciliation performed by pharmacy medication reconciliations photovoltaic testing technician and/or nursing. Patients Allergies have been reviewed. Allergies Coded Allergies: Sulfa (Sulfonamide Antibiotics) (Verified Allergy, Unknown, 04/16/19) diphenhydramine HCl (Verified Allergy, Unknown, 04/16/19) hydrochlorothiazide (Unverified Allergy, Unknown, 04/16/19) varenicline tartrate (Verified Allergy, Unknown, 04/16/19) KMN-Ctrzna-Rqdxco Hx Patient Social History Alcohol Use: Denies Use Recreational Drug Use: No Smoking Status: Former Smoker Former smoker/When Quit: Feb 03, 2013 Type Used: Cigarettes 2nd Hand Smoke Exposure: No Recent Foreign Travel: No Contact w/other who traveled: No Recent Hopitalizations: No Recent Infectious Disease Expo: No Immunizations Up To Date Tetanus Booster (TDap): Unknown Date of Pneumonia Vaccine: Sep 05, 2014 Date of Influenza Vaccine: Aug 19, 2017 Past Medical History Past Medical History 1. Hypertension 2. Hyperlipidemia 3. COPD 4. Osteoarthritis 5. CAD with history of PTCA x2, CABG with Vetch 01/02 6. Urinary Tract Infections recently treated on 09-25 and 11-02-14, now again on 02-25-15 with VRE and Klebsiella 7. Recurrent mental status changes 8. Frequent falls with concern for safety at home 9. Unintentional medication overdoses- pt. will take more medication than prescribed and forget she took them. 10. Diabetes Mellitus- HgA1C in 2013 7.0 pt. needs medications Past Surgical History 1. intracranial anuerysm repair 2.bilateral rotator cuff repair 3. cervical fusion 4. low back surgery x 2, 5. knee replacement 6. hysterectomy 7. carpal tunnel release bilaterally 8. Tonsillectomy 9. Cardiac Cath- Shan 10. CABG x3 Vetch 2-. 11. adenoidectomy Family Medical History Significant Family History: Heart Disease, Diabetes Family History: Cancer 09 SISTER Cancer of colon Cataract 03 MOTHER, Onset:Unknown Family history: Allergy 03 FATHER, Onset:Unknown 03 MOTHER, Onset:Unknown Family history: Arthritis 03 FATHER, Onset:Unknown 03 MOTHER, Onset:Unknown 09 SISTER, Onset:Unknown Family history: Cardiovascular disease 03 FATHER, Onset:Unknown 03 MOTHER, Onset:Unknown 09 BROTHER, Onset:Unknown 09 SISTER, Onset:Unknown Family history: Diabetes mellitus 03 MOTHER, Onset:Unknown Family history: Gastrointestinal disease 03 FATHER, Onset:Unknown Family history: Hypertension 03 MOTHER, Onset:Unknown Family history: Osteoporosis 03 MOTHER, Onset:Unknown Hearing loss 03 FATHER, Onset:Unknown Heart disease 03 FATHER, Onset:Unknown 03 MOTHER, Onset:Unknown 09 BROTHER, Onset:Unknown Hypercholesterolemia 03 MOTHER, Onset:Unknown Malignant neoplasm of lung 09 SISTER, Onset:Unknown Myocardial infarction 09 BROTHER, Onset:Unknown Parkinson's disease Stroke 03 FATHER, Onset:Unknown Thyroid disease No Family History of: Abdominal aortic aneurysm Robert's disease Alcoholism Aphasia Chest pain Congenital heart disease Congestive heart failure Cystic fibrosis Dementia Dysphagia Family history: Alzheimer's disease Family history: Asthma Family history: Breast disease Family history: Coronary thrombosis Family history: Glaucoma Family history: Thyroid disorder Headache Hereditary disease History of - anemia History of - disorder History of - respiratory disease History of drug abuse Human immunodeficiency virus (HIV) seropositivity Infertile Kidney disease Prostate cancer Psychotic disorder Seizure disorder Tuberculosis Visual impairment Review of Systems (CHC) Constitutional: No fever EENTM: No nose congestion Respiratory: cough Cardiovascular: No chest pain Gastrointestinal: abdominal pain, diarrhea, melena, vomiting Genitourinary: No dysuria Skin: no symptoms reported Psychiatric/Neurological: Anxiety Reviewed Test Results Reviewed Test Results Lab Laboratory Tests Test 04/16/19 15:20 04/16/19 16:12 04/16/19 17:40 04/17/19 01:21 Range/Units White Blood Count 22.4 H 4.3-11.0 10^3/uL Red Blood Count 2.48 L 4.35-5.85 10^6/uL Hemoglobin 7.5 L 7.0 L 11.5-16.0 G/DL Hematocrit 23 L 21 L 35-52 % Mean Corpuscular Volume 93 80-99 FL Mean Corpuscular Hemoglobin 30 25-34 PG Mean Corpuscular Hemoglobin Concent 33 32-36 G/DL Red Cell Distribution Width 14.9 H 10.0-14.5 % Platelet Count 283 130-400 10^3/uL Mean Platelet Volume 10.4 7.4-10.4 FL Neutrophils (%) (Auto) 75 42-75 % Lymphocytes (%) (Auto) 17 12-44 % Monocytes (%) (Auto) 7 0-12 % Eosinophils (%) (Auto) 0 0-10 % Basophils (%) (Auto) 0 0-10 % Neutrophils # (Auto) 16.8 H 1.8-7.8 X 10^3 Lymphocytes # (Auto) 3.8 1.0-4.0 X 10^3 Monocytes # (Auto) 1.7 H 0.0-1.0 X 10^3 Eosinophils # (Auto) 0.1 0.0-0.3 10^3/uL Basophils # (Auto) 0.0 0.0-0.1 10^3/uL Neutrophils % (Manual) 71 % Lymphocytes % (Manual) 20 % Monocytes % (Manual) 7 % Eosinophils % (Manual) 0 % Basophils % (Manual) 0 % Band Neutrophils 2 % Polychromasia SLIGHT Anisocytosis SLIGHT Prothrombin Time 18.9 H 12.2-14.7 SEC INR Comment 1.5 H 0.8-1.4 Activated Partial Thromboplast Time 31 24-35 SEC Sodium Level 135 138 135-145 MMOL/L Potassium Level 4.6 4.0 3.6-5.0 MMOL/L Chloride Level 105 112 H 98-107 MMOL/L Carbon Dioxide Level 21 20 L 21-32 MMOL/L Anion Gap 9 6 5-14 MMOL/L Blood Urea Nitrogen 56 H 34 H 7-18 MG/DL Creatinine 0.75 0.68 0.60-1.30 MG/DL Estimat Glomerular Filtration Rate > 60 > 60 BUN/Creatinine Ratio 75 50 Glucose Level 164 H 107 H 70-105 MG/DL Lactic Acid Level 2.64 *H 1.81 0.57 0.50-2.00 MMOL/L Calcium Level 7.9 L 7.5 L 8.5-10.1 MG/DL Corrected Calcium 8.8 8.6 8.5-10.1 MG/DL Magnesium Level 1.8 1.7 L 1.8-2.4 MG/DL Total Bilirubin 0.2 0.6 0.1-1.0 MG/DL Aspartate Amino Transf (AST/SGOT) 15 14 5-34 U/L Alanine Aminotransferase (ALT/SGPT) 12 12 0-55 U/L Alkaline Phosphatase 42 36 L 40-136 U/L Troponin I < 0.028 <0.028 NG/ML Total Protein 4.9 L 4.3 L 6.4-8.2 GM/DL Albumin 2.9 L 2.6 L 3.2-4.5 GM/DL Urine Color YELLOW Urine Clarity VERY CLOUDY H Urine pH 6.5 5-9 Urine Specific [place] 1.020 1.016-1.022 Urine Protein 2+ H NEGATIVE Urine Glucose (UA) NEGATIVE NEGATIVE Urine Ketones NEGATIVE NEGATIVE Urine Nitrite POSITIVE H NEGATIVE Urine Bilirubin NEGATIVE NEGATIVE Urine Urobilinogen NORMAL NORMAL MG/DL Urine Leukocyte Esterase 3+ H NEGATIVE Urine RBC (Auto) 1+ H NEGATIVE Urine RBC 0-2 /HPF Urine WBC 10-25 H /HPF Urine Squamous Epithelial Cells 10-25 H /HPF Urine Crystals PRESENT H /LPF Urine Amorphous Sediment LARGE VI URATES H /LPF Urine Bacteria LARGE H /HPF Urine Casts NONE /LPF Urine Mucus NEGATIVE /LPF Urine Culture Indicated CULTURE PENDING Phosphorus Level 2.4 2.3-4.7 MG/DL Test 04/17/19 02:44 04/17/19 08:50 Range/Units White Blood Count 16.4 H 4.3-11.0 10^3/uL Red Blood Count 2.94 L 4.35-5.85 10^6/uL Hemoglobin 8.5 #L 11.5-16.0 G/DL Hematocrit 26 L 35-52 % Mean Corpuscular Volume 87 80-99 FL Mean Corpuscular Hemoglobin 29 25-34 PG Mean Corpuscular Hemoglobin Concent 33 32-36 G/DL Red Cell Distribution Width 18.1 H 10.0-14.5 % Platelet Count 190 130-400 10^3/uL Mean Platelet Volume 9.9 7.4-10.4 FL Neutrophils (%) (Auto) 74 42-75 % Lymphocytes (%) (Auto) 18 12-44 % Monocytes (%) (Auto) 7 0-12 % Eosinophils (%) (Auto) 1 0-10 % Basophils (%) (Auto) 0 0-10 % Neutrophils # (Auto) 12.1 H 1.8-7.8 X 10^3 Lymphocytes # (Auto) 3.0 1.0-4.0 X 10^3 Monocytes # (Auto) 1.2 H 0.0-1.0 X 10^3 Eosinophils # (Auto) 0.2 0.0-0.3 10^3/uL Basophils # (Auto) 0.0 0.0-0.1 10^3/uL Glucometer 133 H 70-110 MG/DL Radiology CT abdomen IMPRESSION: 1. Small hepatic and renal cysts. 2. 4.2 cm infrarenal abdominal aortic aneurysm. 3. Midline anterior abdominal wall hernia containing only omental fat. 4. No other acute abnormality in the abdomen or pelvis. CXR: IMPRESSION: Cardiomegaly with chronic-appearing increased interstitial markings and mild central vascular congestion. No new consolidation or pleural fluid. Physical Exam-(CHC) Physical Exam Vital Signs VS - Last 72 Hours, by Label 04/16/19 04/16/19 04/16/19 04/16/19 15:11 15:11 15:45 15:58 Temp 99.4 99.4 Pulse 133 133 Resp 28 B/P (MAP) 95/59 95/59 (71) Pulse Ox 97 97 100 O2 Delivery Nasal Cannula O2 Flow Rate 2.00 FiO2 100 04/16/19 04/16/19 04/16/19 04/16/19 17:08 17:23 17:43 17:50 Temp 99.0 98.5 98.5 Pulse 107 107 107 Resp 18 18 18 B/P (MAP) 102/47 101/55 101/55 (70) Pulse Ox 98 99 99 O2 Delivery Nasal Cannula Nasal Cannula Nasal Cannula Nasal Cannula O2 Flow Rate 2.00 2.00 2.00 2.00 04/16/19 04/16/19 04/16/19 04/16/19 18:15 18:16 18:20 18:30 Temp 97.9 Pulse 137 118 115 Resp 16 16 B/P (MAP) 97/69 (78) 115/72 (86) Pulse Ox 100 99 O2 Delivery Room Air Room Air 04/16/19 04/16/19 04/16/19 04/16/19 18:45 19:00 19:00 19:09 Pulse 128 126 135 123 Resp 28 B/P (MAP) 125/64 (84) 133/73 (93) Pulse Ox 100 100 99 O2 Delivery Room Air Nasal Cannula O2 Flow Rate 2.00 FiO2 29 04/16/19 04/16/19 04/16/19 04/16/19 19:48 19:55 20:00 20:00 Temp 97.8 Pulse 118 Resp 18 B/P (MAP) 114/47 (69) Pulse Ox 100 98 100 O2 Delivery Nasal Cannula Nasal Cannula Room Air O2 Flow Rate 2.00 2.00 04/16/19 04/16/19 04/16/19 04/16/19 20:20 20:35 20:50 21:00 Temp 97.8 98.6 97.8 Pulse 120 111 120 118 Resp 18 16 B/P (MAP) 114/47 125/85 107/84 94/74 (81) Pulse Ox 98 98 O2 Delivery Nasal Cannula Nasal Cannula Nasal Cannula Nasal Cannula O2 Flow Rate 2.00 2.00 2.00 2.00 04/16/19 04/16/19 04/16/19 04/17/19 22:00 23:00 23:02 00:00 Temp 97.8 Pulse 101 96 118 109 Resp 16 14 16 B/P (MAP) 114/63 (80) 125/75 (92) 125/75 128/71 (90) Pulse Ox 99 99 99 99 O2 Delivery Nasal Cannula Nasal Cannula Nasal Cannula Nasal Cannula O2 Flow Rate 2.00 2.00 2.00 2.00 04/17/19 04/17/19 04/17/19 04/17/19 00:00 00:07 01:00 01:00 Temp 97.8 Pulse 113 108 Resp 16 B/P (MAP) 118/59 (78) Pulse Ox 99 99 O2 Delivery Nasal Cannula Nasal Cannula O2 Flow Rate 2.00 2.00 04/17/19 04/17/19 04/17/19 04/17/19 02:00 03:00 03:35 04:00 Temp 97.2 Pulse 95 104 94 Resp 16 15 17 B/P (MAP) 124/65 (84) 136/71 (92) 104/68 (80) Pulse Ox 97 98 97 O2 Delivery Nasal Cannula Nasal Cannula Nasal Cannula O2 Flow Rate 2.00 2.00 2.00 04/17/19 04/17/19 04/17/19 04/17/19 04:00 05:00 06:00 07:00 Pulse 89 115 94 Resp 15 17 17 B/P (MAP) 117/78 (91) 132/75 (94) 154/67 (96) Pulse Ox 99 94 97 97 O2 Delivery Nasal Cannula Nasal Cannula Nasal Cannula Nasal Cannula O2 Flow Rate 2.00 2.00 2.00 2.00 04/17/19 04/17/19 04/17/19 04/17/19 07:20 08:01 08:04 09:00 Temp 97.6 Pulse 86 90 97 Resp 18 13 B/P (MAP) 122/84 (97) 133/73 (93) Pulse Ox 99 99 99 O2 Delivery Nasal Cannula Nasal Cannula Nasal Cannula O2 Flow Rate 2.00 2.00 2.00 04/17/19 04/17/19 04/17/19 04/17/19 09:45 09:50 09:55 10:23 Pulse 124 114 107 Resp 18 18 18 Pulse Ox 90 98 96 94 O2 Delivery OxyMask OxyMask Room Air Room Air O2 Flow Rate 10 10 04/17/19 04/17/19 04/17/19 04/17/19 11:00 11:50 12:00 12:00 Temp 98.0 Pulse 108 95 Resp 10 13 B/P (MAP) 108/73 (85) 106/66 (79) Pulse Ox 91 96 99 O2 Delivery Nasal Cannula Nasal Cannula Nasal Cannula O2 Flow Rate 2.00 2.00 2.00 04/17/19 04/17/19 04/17/19 04/17/19 12:50 13:00 14:00 15:00 Pulse 121 105 96 102 Resp 17 15 12 B/P (MAP) 110/58 (75) 134/52 (79) 120/62 (81) Pulse Ox 92 99 99 O2 Delivery Nasal Cannula Nasal Cannula Nasal Cannula O2 Flow Rate 2.00 2.00 2.00 04/17/19 04/17/19 04/17/19 04/17/19 15:55 16:00 16:00 16:16 Temp 98.1 98.2 Pulse 93 104 Resp 18 24 B/P (MAP) 120/61 (80) 130/60 (83) Pulse Ox 99 94 96 O2 Delivery Nasal Cannula Nasal Cannula Nasal Cannula O2 Flow Rate 2.00 2.00 1.00 Capillary Refill : Less Than 3 Seconds General Appearance: WD/WN, no apparent distress Respiratory: lungs clear, wheezing Cardiovascular: regular rate, rhythm, no murmur Gastrointestinal: normal bowel sounds, soft, tenderness, other (suprapubic catheter in place) Extremities: no pedal edema Neurologic/Psychiatric: alert, normal mood/affect Skin: normal color, warm/dry Assessment/Plan Assessment/Plan Admission Status: Inpatient Order (span 2 midnights) Reason for Inpatient Admission: Hypotension with GI bleeding with coronary artery disease and multiple comorbities (1) UTI (urinary tract infection) due to urinary indwelling catheter Status: Acute Assessment & Plan: With high WBC and hypotension and elevated LA concerning for possible sepsis, however complicating picture is GI bleed leading to hypotension. Started on cefepime, culture pending. Qualifiers: Qualified Codes: T83.511A - Infection and inflammatory reaction due to indwelling urethral catheter, initial encounter; N39.0 - Urinary tract infection, site not specified (2) GI bleed Status: Acute Assessment & Plan: Hold Eliquis, Surgery consulted, EGD this am. Transfused PRBCs on admission. Qualifiers: Qualified Codes: K92.2 - Gastrointestinal hemorrhage, unspecified (3) Acute blood loss anemia Status: Acute Assessment & Plan: Suspect upper GI source, Surgery consulted, EGD this am. IV PPI. (4) Atrial fibrillation Status: Chronic Assessment & Plan: Hold Eliquis. Cardiology consulted. Qualifiers: Qualified Codes: I48.2 - Chronic atrial fibrillation (5) Coronary artery disease Status: Chronic (6) Abdominal aortic aneurysm (AAA) 3.0 cm to 5.0 cm in diameter in female Status: Chronic (7) Chronic obstructive airway disease Status: Chronic Assessment & Plan: MAT protocol. Resume home inhalers. (8) DVT prophylaxis Status: Acute Assessment & Plan: SCDs, no pharmacologic due to active bleed Clinical Quality Measures DVT/VTE Risk/Contraindication: Risk Factor Score Per Nursin RFS Level Per Nursing on Admit: 4+=Very High SHARIF MARCELO MD April 17, 2019 17:54
[2019-04-17] MEDS: LORazepam 0.5 MG (ATIVAN) TABLET PO SCH (20:16)
[2019-04-17] MEDS: ATORVASTATIN 40 MG (LIPITOR) TABLET PO SCH (21:00)
[2019-04-17] MEDS ORDERED: NON-FORMULARY MEDICATION 1 EA EA (Bupropion HCl (Bupropion Xl) 300 MG) PO SCH (21:00)
[2019-04-17] MEDS ORDERED: NON-FORMULARY MEDICATION 1 EA EA (Budesonide/Formoterol Fumarate (Symbicort 160-4.5 Mcg In IH SCH (21:00)
[2019-04-17] MEDS: traZODone 50 MG (DESYREL) TAB PO SCH (21:01)
[2019-04-17] MEDS: buPROPion SR 150 MG (WELLBUTRIN SR) TAB PO SCH (21:01)
[2019-04-17] MEDS: GABAPENTIN 400 MG (NEURONTIN) CAP PO SCH (21:01)
[2019-04-17] MEDS: RT-ADVAIR HFA 115/21 MCG PER PUFF IH SCH (22:34)
[2019-04-18] VITALS (7 sets, daily range): BP systolic 100–144; BP diastolic 56–72
[2019-04-18] MEDS: SUCRALFATE 1 GM (CARAFATE) TAB PO SCH ×4 (05:19→20:34)
[2019-04-18] MEDS: NS IV 1000 ML 1,000 ML IV SCH ×3 (05:19→23:58)
[2019-04-18 06:44] LABS: BASOPHILS % (AUTO) 0 % (0-10); EOSINOPHILS # (AUTO) 0.4 10^3/uL (0.0-0.3); EOSINOPHILS % (AUTO) 3 % (0-10); HEMATOCRIT 26 % (35-52); HEMOGLOBIN 8.5 G/DL (11.5-16.0); LYMPHOCYTES # (AUTO) 2.3 X 10^3 (1.0-4.0); LYMPHOCYTES % (AUTO) 19 % (12-44); MEAN CORPUSCULAR HEMOGLOBIN 29 PG (25-34); MEAN CORPUSCULAR HGB CONC 33 G/DL (32-36); MEAN CORPUSCULAR VOLUME 90 FL (80-99); MONOCYTES % (AUTO) 8 % (0-12); NEUTROPHILS # (AUTO) 8.5 X 10^3 (1.8-7.8); NEUTROPHILS % (AUTO) 69 % (42-75); PLATELET COUNT 178 10^3/uL (130-400); RED CELL DISTRIBUTION WIDTH 18.7 % (10.0-14.5); WHITE BLOOD COUNT 12.3 10^3/uL (4.3-11.0)
[2019-04-18 07:07] LABS: ALANINE AMINOTRANSFERASE 14 U/L (0-55); ALBUMIN 2.8 GM/DL (3.2-4.5); ALKALINE PHOSPHATASE 39 U/L (40-136); BILIRUBIN,TOTAL 0.4 MG/DL (0.1-1.0); BUN/CREATININE RATIO 21; CALCIUM 7.5 MG/DL (8.5-10.1); CARBON DIOXIDE 22 MMOL/L (21-32); CHLORIDE 115 MMOL/L (98-107); CREATININE SERUM 0.63 MG/DL (0.60-1.30); GFR ESTIMATED > 60; GLUCOSE 123 MG/DL (70-105); POTASSIUM 3.2 MMOL/L (3.6-5.0); SODIUM 141 MMOL/L (135-145); TOTAL PROTEIN 4.6 GM/DL (6.4-8.2)
--- NOTE | 2019-04-18 07:48 | Diagnostic Imaging Report ---
Portable erect AP chest at 6:16 a.m. INDICATION: Respiratory distress. FINDINGS: The cardiomegaly and the sternotomy wires and surgical clips noted on the prior exam of 04/17/2019 are again evident and no different. The central pulmonary vascularity and interstitial densities in both lungs remain prominent and similar to the prior study. There may be a small amount of fluid in the right lung base as well. The mediastinum is not widened. The osseous structures are intact. IMPRESSION: When compared to the prior study, there has been no significant change. No new abnormality has developed. A followup study would be recommended for continued evaluation. Dictated by: Dictated on workstation # [id number]
[2019-04-18] MEDS ORDERED: WATER (STERILE) FOR INJECTION 20 ML ONE (08:17)
[2019-04-18] MEDS ORDERED: CEFEPIME 2 GM (MAXIPIME) VIAL ONE (08:17)
[2019-04-18] MEDS: SERTRALINE 50 MG (ZOLOFT) TABLET PO SCH (08:51)
[2019-04-18] MEDS: PANTOPRAZOLE 40 MG (PROTONIX) VIAL IV SCH ×2 (08:51→20:33)
[2019-04-18] MEDS: GABAPENTIN 400 MG (NEURONTIN) CAP PO SCH ×3 (08:51→20:34)
[2019-04-18] MEDS: CEFEPIME 2,000 MG/SWFI 20 ML IV PUSH IV SCH ×2 (08:52)
[2019-04-18] MEDS: buPROPion SR 150 MG (WELLBUTRIN SR) TAB PO SCH ×2 (08:52→20:34)
[2019-04-18] MEDS: RT-ALBUTEROL/IPRATROPIUM 3 ML (DUONEB) VIAL INH SCH ×2 (11:29→18:53)
[2019-04-18] MEDS: RT-ADVAIR HFA 115/21 MCG PER PUFF IH SCH ×2 (11:29→18:53)
--- NOTE | 2019-04-18 11:47 | Progress Note (SOAP) ---
Subjective Date Seen by a Provider: Apr 18, 2019 Time Seen by a Provider: 11:15 Subjective/Events-last exam Patient seen with Dr. Arreguin. Patient reports doing ok but states that she had a "panic attack" last night. Denies any abdominal pain. No N/V. Tolerating diet. She reports that it has been a couple of days since she had a BM. Minimal Heartburn/reflux. Focused Exam Lactate Level 04/16/19 15:20: Lactic Acid Level 2.64*H 04/16/19 17:40: Lactic Acid Level 1.81 04/17/19 01:21: Lactic Acid Level 0.57 Time of Focused Exam: 17:05 Objective Exam Vital Signs Date Time Temp Pulse Resp B/P (MAP) Pulse Ox O2 Delivery O2 Flow Rate FiO2 04/18/19 08:00 95 Nasal Cannula 1.00 04/18/19 07:30 96.8 91 16 138/61 (86) 95 Nasal Cannula 1.00 04/18/19 07:00 92 04/18/19 04:32 97.4 88 20 144/65 (91) 97 Nasal Cannula 1.00 04/18/19 01:00 105 04/18/19 00:00 Nasal Cannula 2.00 04/17/19 23:13 97.5 110 20 104/51 (68) 98 Nasal Cannula 1.00 04/17/19 22:35 90 Room Air 04/17/19 19:17 98.1 120 20 127/65 (85) 92 Nasal Cannula 1.00 04/17/19 19:00 Nasal Cannula 2.00 04/17/19 19:00 100 04/17/19 16:16 98.2 104 24 130/60 (83) 96 Nasal Cannula 1.00 04/17/19 16:00 93 18 120/61 (80) 94 Nasal Cannula 2.00 04/17/19 16:00 99 Nasal Cannula 2.00 04/17/19 15:55 98.1 04/17/19 15:00 102 12 120/62 (81) 99 Nasal Cannula 2.00 04/17/19 14:00 96 15 134/52 (79) 99 Nasal Cannula 2.00 04/17/19 13:00 105 17 110/58 (75) 92 Nasal Cannula 2.00 04/17/19 12:50 121 04/17/19 12:00 99 Nasal Cannula 2.00 04/17/19 12:00 95 13 106/66 (79) 96 Nasal Cannula 2.00 04/17/19 11:50 98.0 I & O 04/18/19 07:00 Intake Total 4770 ml Output Total 4750 ml Balance 20 ml Capillary Refill : Less Than 3 Seconds General Appearance: No Apparent Distress, WD/WN Neck: Full Range of Motion, Normal Inspection, Supple Respiratory: Lungs Clear, No Accessory Muscle Use, No Respiratory Distress Cardiovascular: Regular Rate, Rhythm, No Edema Gastrointestinal: normal bowel sounds, non tender, soft Extremity: Normal Capillary Refill, Normal Inspection, Normal Range of Motion Neurologic/Psychiatric: Alert, Oriented x3 Skin: Normal Color, Warm/Dry Results Lab Laboratory Tests 04/18/19 06:40: White Blood Count 12.3H, Red Blood Count 2.90L, Hemoglobin 8.5L, Hematocrit 26L, Mean Corpuscular Volume 90, Mean Corpuscular Hemoglobin 29, Mean Corpuscular Hemoglobin Concent 33, Red Cell Distribution Width 18.7H, Platelet Count 178, Mean Platelet Volume 10.0, Neutrophils (%) (Auto) 69, Lymphocytes (%) (Auto) 19, Monocytes (%) (Auto) 8, Eosinophils (%) (Auto) 3, Basophils (%) (Auto) 0, David trophils # (Auto) 8.5H, Lymphocytes # (Auto) 2.3, Monocytes # (Auto) 1.0, Eosinophils # (Auto) 0.4H, Basophils # (Auto) 0.0, Sodium Level 141, Potassium Level 3.2L, Chloride Level 115H, Carbon Dioxide Level 22, Anion Gap 4L, Blood Urea Nitrogen 13, Creatinine 0.63, Estimat Glomerular Filtration Rate > 60, BUN/Creatinine Ratio 21, Glucose Level 123H, Calcium Level 7.5L, Corrected Calcium 8.5, Total Bilirubin 0.4, Aspartate Amino Transf (AST/SGOT) 13, Alanine Aminotransferase (ALT/SGPT) 14, Alkaline Phosphatase 39L, Total Protein 4.6L, Albumin 2.8L Microbiology 04/16/19 Blood Culture - Preliminary, Resulted No growth 04/16/19 MRSA Screen - Final, Complete MRSA not isolated 04/16/19 Urine Culture - Preliminary, Resulted Mixed Bacterial Tanika Morganella morganii Assessment/Plan Assessment/Plan Assess & Plan/Chief Complaint A 83 year old female with Anemia secondary to GI Bleed. She does have history of Afib and has been on anticoagulation. Hgb 8.5 this morning and will continue to monitor. Continue PUD prophylaxis and Carafate. Will start colonic prep tomorrow and will have colonoscopy on Saturday (04/20) Clinical Quality Measures DVT/VTE Risk/Contraindication: Risk Factor Score Per Nursin RFS Level Per Nursing on Admit: 4+=Very High ABHISHEK العراقي CARTON STAPLER Apr 18, 2019 11:47
--- NOTE | 2019-04-18 13:00 | Progress Note-Cardiology ---
Cardiology SOAP Progress Note Subjective: Feels somewhat better today Less weak No abd pain Tires easily No cp or palp or syncope Objective: I&O/Vital Signs 04/18/19 04/18/19 04/18/19 04/18/19 01:00 04:32 07:00 07:30 Temp 97.4 96.8 Pulse 105 88 92 91 Resp 20 16 B/P (MAP) 144/65 (91) 138/61 (86) Pulse Ox 97 95 O2 Delivery Nasal Cannula Nasal Cannula O2 Flow Rate 1.00 1.00 04/18/19 04/18/19 04/18/19 08:00 11:44 12:43 Temp 98.0 Pulse 113 101 Resp 20 B/P (MAP) 110/59 (76) Pulse Ox 95 98 O2 Delivery Nasal Cannula Nasal Cannula O2 Flow Rate 1.00 1.50 04/18/19 00:00 Intake Total 2670 ml Output Total 3050 ml Balance -380 ml Weight (Pounds): 187 Weight (Ounces): 3.2 Weight (Calculated Kilograms): [id number] Constitutional: AAO x 3, well-developed, well-nourished Respiratory: No accessory muscle use, No respiratory distress; rhonchi (scattered), other (SOB with conversation) Cardiovascular: irregularly irregular; No JVD; tachycardia, S1 and S2, systolic murmur Gastrointestional: tender, audible bowel sounds (hyperactive) Extremities: no lower extremity edema bilateral Neurologic/Psychiatric: grossly intact Skin: normal color, warm/dry Results/Procedures: Labs Laboratory Tests 04/18/19 06:40: White Blood Count 12.3H, Red Blood Count 2.90L, Hemoglobin 8.5L, Hematocrit 26L, Mean Corpuscular Volume 90, Mean Corpuscular Hemoglobin 29, Mean Corpuscular Hemoglobin Concent 33, Red Cell Distribution Width 18.7H, Platelet Count 178, Mean Platelet Volume 10.0, Neutrophils (%) (Auto) 69, Lymphocytes (%) (Auto) 19, Monocytes (%) (Auto) 8, Eosinophils (%) (Auto) 3, Basophils (%) (Auto) 0, Neutrophils # (Auto) 8.5H, Lymphocytes # (Auto) 2.3, Monocytes # (Auto) 1.0, Eosinophils # (Auto) 0.4H, Basophils # (Auto) 0.0, Sodium Level 141, Potassium Level 3.2L, Chloride Level 115H, Carbon Dioxide Level 22, Anion Gap 4L, Blood Urea Nitrogen 13, Creatinine 0.63, Estimat Glomerular Filtration Rate > 60, BUN/Creatinine Ratio 21, Glucose Level 123H, Calcium Level 7.5L, Corrected Calcium 8.5, Total Bilirubin 0.4, Aspartate Amino Transf (AST/SGOT) 13, Alanine Aminotransferase (ALT/SGPT) 14, Alkaline Phosphatase 39L, Total Protein 4.6L, Albumin 2.8L Microbiology 04/16/19 Blood Culture - Preliminary, Resulted No growth 04/16/19 MRSA Screen - Final, Complete MRSA not isolated 04/16/19 Urine Culture - Preliminary, Resulted Mixed Bacterial Tanika Morganella morganii A/P: Assessment: GI bleed with hypovolemic shock. GI bleed due to a bleeding prepyloric ulcer (managed by the Surg Svce) Suspected UTI with possible sepsis (managed by the Med Svce) Severe bilateral ICA stenoses; s/p R CEA with Dr Valenzuela at [facility] in Dec 2017; s/p L carotid PCI at [facility] in January 2018 (Dr Valenzuela) Chronic dyspnea likely multi-factorial: COPD and diastolic dysfunction and physical deconditioning. 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 Maza at [facility] in : GREY to LAD, SVG to OM1 and SVG to PDA. Cardiac cath of Oct 15, 2017 (done following an MPI that showed apical ischemia) showed widely patent aortocoronary graft to the distal RCA, widely patent aortocoronary graft to OM system, widely patent left internal mammary artery graft to the distal LAD, normal to hyperdynamic LV systolic function with an ejection fraction of approx 70%, normal LVEDP, no evidence of thoracic aortic aneurysm or dissection, mod-sized infrarenal abdominal aortic aneurysm, mild prox stenosis of the left renal artery. For which she has been maintained on ASA and Plavix Peripheral angiogram with runoffs of March 2018: Moderate-sized, infrarenal, saccular abdominal aortic aneurysm. A 70% ostial and proximal stenoses of the renal arteries on both sides. 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 Proximal occlusion of the right superficial femoral artery which reconstitutes via collaterals in its distal portion. There is a 2- vessel runoff in the leg. Multiple up to 75% stenoses in the mid and distal portions of the left superficial femoral artery. For these findings she was refe rred to [facility] Echo of 03/05/18 showed LVEF 75-80%, grade 3 mcqueen dysfunction, PASP 45 mmHg, mod biatrial enlartgement, AoV sclerosis, and mild to mod TR COPD Tobaccoism, quit 2009 HTN H/o hypothyroidism that is followed by her fam phy S/P suprapubic catheter placement per Dr. James on 11-26-2017 Plan: * Complex management issue due to multiple comorbidities * Replenish blood and fluid volume as needed * Hold antiplatelet agents and anticoag until prepyloric ulcer heals. Resume these when source of bleed fully treated * Hold bp-lowering meds * Probable UTI with suspected sepsis - management per Medical Services * Monitor lab closely CHELLE GOETZ MD FACP FAC CCDS Apr 18, 2019 13:00
[2019-04-18] MEDS: LORazepam 0.5 MG (ATIVAN) TABLET PO PRN (13:25)
--- NOTE | 2019-04-18 17:11 | Progress Note (SOAP) ---
Subjective Subjective/Events-last exam Patient states that she is very anxious and that she had a panic attack last night. States that the ativan helped. She says she is feeling much better then when she presented to hospital. Denies any N/V. Review of Systems Date Seen by Provider: Apr 18, 2019 Time Seen by Provider: 10:30 Pulmonary: Dyspnea; No Cough Cardiovascular: No: Chest Pain, Palpitations Gastrointestinal: No: Nausea, Vomiting, Abdominal Pain Focused Exam Lactate Level 04/16/19 15:20: Lactic Acid Level 2.64*H 04/16/19 17:40: Lactic Acid Level 1.81 04/17/19 01:21: Lactic Acid Level 0.57 Time of Focused Exam: 17:05 Objective Exam Last Set of Vital Signs Vital Signs Date Time Temp Pulse Resp B/P (MAP) Pulse Ox O2 Delivery O2 Flow Rate FiO2 04/18/19 15:48 99.8 112 20 100/56 (71) 96 Nasal Cannula 1.00 04/16/19 19:09 29 Capillary Refill : Less Than 3 Seconds I&O Intake and Output 04/18/19 00:00 Intake Total 3720 ml Output Total 4450 ml Balance -730 ml Intake Oral 700 ml IV Total 3020 ml Output Urine Total 4450 ml General: Alert, Oriented X3, No Acute Distress Lungs: Clear to Auscultation, Normal Air Movement Heart: Regular Rate, No Murmurs Abdomen: Normal Bowel Sounds, Soft, No Tenderness, No Masses Extremities: Other (1+ pitting edema bilaterally) Skin: No Rashes, No Breakdown Psych/Mental Status: Mental Status NL Results/Procedures Lab Laboratory Tests 04/18/19 06:40: White Blood Count 12.3H, Red Blood Count 2.90L, Hemoglobin 8.5L, Hematocrit 26L, Mean Corpuscular Volume 90, Mean Corpuscular Hemoglobin 29, Mean Corpuscular Hem oglobin Concent 33, Red Cell Distribution Width 18.7H, Platelet Count 178, Mean Platelet Volume 10.0, Neutrophils (%) (Auto) 69, Lymphocytes (%) (Auto) 19, Monocytes (%) (Auto) 8, Eosinophils (%) (Auto) 3, Basophils (%) (Auto) 0, Neutrophils # (Auto) 8.5H, Lymphocytes # (Auto) 2.3, Monocytes # (Auto) 1.0, Eosinophils # (Auto) 0.4H, Basophils # (Auto) 0.0, Sodium Level 141, Potassium Level 3.2L, Chloride Level 115H, Carbon Dioxide Level 22, Anion Gap 4L, Blood Urea Nitrogen 13, Creatinine 0.63, Estimat Glomerular Filtration Rate > 60, BUN/Creatinine Ratio 21, Glucose Level 123H, Calcium Level 7.5L, Corrected Calcium 8.5, Total Bilirubin 0.4, Aspartate Amino Transf (AST/SGOT) 13, Alanine Aminotransferase (ALT/SGPT) 14, Alkaline Phosphatase 39L, Total Protein 4.6L, Albumin 2.8L Microbiology 04/16/19 Blood Culture - Preliminary, Resulted No growth 04/16/19 MRSA Screen - Final, Complete MRSA not isolated 04/16/19 Urine Culture - Preliminary, Resulted Mixed Bacterial Tanika Morganella morganii Radiology CT abdomen IMPRESSION: 1. Small hepatic and renal cysts. 2. 4.2 cm infrarenal abdominal aortic aneurysm. 3. Midline anterior abdominal wall hernia containing only omental fat. 4. No other acute abnormality in the abdomen or pelvis. CXR: IMPRESSION: Cardiomegaly with chronic-appearing increased interstitial markings and mild central vascular congestion. No new consolidation or pleural fluid. Assessment/Plan Assessment/Plan (1) UTI (urinary tract infection) due to urinary indwelling catheter Status: Acute Assessment & Plan: With high WBC and hypotension and elevated LA concerning for possible sepsis, however complicating picture is GI bleed leading to hypotension. Started on cefepime, culture pending. 04/18: Continue antibiotics at this time, draining clear urine Qualifiers: Qualified Codes: T83.511A - Infection and inflammatory reaction due to indwe lling urethral catheter, initial encounter; N39.0 - Urinary tract infection, site not specified (2) GI bleed Status: Acute Assessment & Plan: Hold Eliquis, Surgery consulted, EGD this am. Transfused PA BCs on admission. 04/18: Ulcer with signs of recent bleed seen on EGD, Surgery following, IV protonix and carafate Qualifiers: Qualified Codes: K92.2 - Gastrointestinal hemorrhage, unspecified (3) Acute blood loss anemia Status: Acute Assessment & Plan: Suspect upper GI source, Surgery consulted, EGD this am. IV PPI. 04/18: hgb stable this AM, will continue to monitor (4) Atrial fibrillation Status: Chronic Assessment & Plan: Hold Eliquis. Cardiology consulted. Qualifiers: Qualified Codes: I48.2 - Chronic atrial fibrillation (5) Coronary artery disease Status: Chronic Qualifiers: Qualified Codes: I25.10 - Atherosclerotic heart disease of [place] coronary artery without angina pectoris (6) Abdominal aortic aneurysm (AAA) 3.0 cm to 5.0 cm in diameter in female Status: Chronic (7) Chronic obstructive airway disease Onset Date: 03/15/2015 Status: Chronic Assessment & Plan: MAT protocol. Resume home inhalers. (8) DVT prophylaxis Status: Acute Assessment & Plan: SCDs, no pharmacologic due to active bleed Clinical Quality Measures DVT/VTE Risk/Contraindication: Risk Factor Score Per Nursin RFS Level Per Nursing on Admit: 4+=Very High ASYA BURLESON MD Apr 18, 2019 17:11
[2019-04-18] MEDS: ATORVASTATIN 40 MG (LIPITOR) TABLET PO SCH (20:34)
[2019-04-18] MEDS: LORazepam 0.5 MG (ATIVAN) TABLET PO SCH (20:34)
[2019-04-18] MEDS: traZODone 50 MG (DESYREL) TAB PO SCH (20:36)
--- NOTE | 2019-04-18 23:45 | NUR ---
PT C/O OF ABD PAIN PRN TRAMADOL OFFERED. PT REFUSED MEDICATION AND ASKED FOR SOMETHING STROGEN. DR BURLESON NOTIFIED AND NEW ORDERS RECEIVED.
[2019-04-19] MEDS ORDERED: fentaNYL INJECTION 100 MCG/2 ML AMP IVP ONE
[2019-04-19 04:53] VITALS: BP 122/56
[2019-04-19 04:54] LABS: BASOPHILS % (AUTO) 0 % (0-10); EOSINOPHILS # (AUTO) 0.3 10^3/uL (0.0-0.3); EOSINOPHILS % (AUTO) 3 % (0-10); HEMATOCRIT 24 % (35-52); HEMOGLOBIN 7.7 G/DL (11.5-16.0); LYMPHOCYTES # (AUTO) 2.3 X 10^3 (1.0-4.0); LYMPHOCYTES % (AUTO) 20 % (12-44); MEAN CORPUSCULAR HEMOGLOBIN 29 PG (25-34); MEAN CORPUSCULAR HGB CONC 32 G/DL (32-36); MEAN CORPUSCULAR VOLUME 92 FL (80-99); MEAN PLATELET VOLUME 9.7 FL (7.4-10.4); MONOCYTES # (AUTO) 1.1 X 10^3 (0.0-1.0); MONOCYTES % (AUTO) 10 % (0-12); NEUTROPHILS # (AUTO) 7.3 X 10^3 (1.8-7.8); NEUTROPHILS % (AUTO) 66 % (42-75); PLATELET COUNT 193 10^3/uL (130-400); RED CELL DISTRIBUTION WIDTH 18.8 % (10.0-14.5)
[2019-04-19 05:13] LABS: ALANINE AMINOTRANSFERASE 13 U/L (0-55); ALBUMIN 2.7 GM/DL (3.2-4.5); ALKALINE PHOSPHATASE 39 U/L (40-136); BILIRUBIN,TOTAL 0.2 MG/DL (0.1-1.0); BUN/CREATININE RATIO 15; CALCIUM 7.8 MG/DL (8.5-10.1); CARBON DIOXIDE 21 MMOL/L (21-32); CHLORIDE 116 MMOL/L (98-107); CREATININE SERUM 0.67 MG/DL (0.60-1.30); GFR ESTIMATED > 60; GLUCOSE 128 MG/DL (70-105); POTASSIUM 3.3 MMOL/L (3.6-5.0); SODIUM 143 MMOL/L (135-145); TOTAL PROTEIN 4.4 GM/DL (6.4-8.2)
[2019-04-19] MEDS: SUCRALFATE 1 GM (CARAFATE) TAB PO SCH ×4 (05:56→20:46)
[2019-04-19] MEDS: NS IV 1000 ML 1,000 ML IV SCH (06:43)
[2019-04-19 08:00] VITALS: BP 129/69
[2019-04-19] MEDS ORDERED: POTASSIUM CL 10MEQ/50ML IVPB 50 ML IV SCH (08:45)
[2019-04-19] MEDS: GABAPENTIN 400 MG (NEURONTIN) CAP PO SCH ×3 (10:02→20:44)
[2019-04-19] MEDS: SERTRALINE 50 MG (ZOLOFT) TABLET PO SCH (10:02)
[2019-04-19] MEDS: PANTOPRAZOLE 40 MG (PROTONIX) VIAL IV SCH ×2 (10:02→20:44)
[2019-04-19] MEDS: buPROPion SR 150 MG (WELLBUTRIN SR) TAB PO SCH ×2 (10:02→20:44)
--- NOTE | 2019-04-19 10:06 | Progress Note (SOAP) ---
Subjective Date Seen by a Provider: Apr 19, 2019 Time Seen by a Provider: 10:00 Subjective/Events-last exam Patient seen with Dr. Arreguin. Patient reports doing ok but having increased shortness of breathe. Tolerating diet. No N/V or reflux. Did report an episode of abdominal pain last night and received a dose of Fentanyl which she reports helped as well as helped her sleep. No diarrhea, but does report constipation. Focused Exam Lactate Level 04/16/19 15:20: Lactic Acid Level 2.64*H 04/16/19 17:40: Lactic Acid Level 1.81 04/17/19 01:21: Lactic Acid Level 0.57 Time of Focused Exam: 17:05 Objective Exam Vital Signs Date Time Temp Pulse Resp B/P (MAP) Pulse Ox O2 Delivery O2 Flow Rate FiO2 04/19/19 08:00 99.0 121 20 129/69 (89) 95 Nasal Cannula 1.00 04/19/19 07:00 103 04/19/19 04:53 98.6 98 20 122/56 (78) 93 Nasal Cannula 1.00 04/19/19 00:46 108 04/18/19 23:46 98.4 120 18 136/62 (86) 93 Nasal Cannula 1.00 04/18/19 20:00 Room Air 04/18/19 19:58 97.9 113 18 141/72 (95) 94 Nasal Cannula 1.00 04/18/19 19:51 97.9 113 18 141/72 (95) 94 Nasal Cannula 1.00 04/18/19 18:57 Room Air 04/18/19 18:52 94 Room Air 04/18/19 15:48 99.8 112 20 100/56 (71) 96 Nasal Cannula 1.00 04/18/19 12:43 101 04/18/19 11:44 98.0 113 20 110/59 (76) 98 Nasal Cannula 1.50 I & O 04/19/19 07:00 Intake Total 7000 ml Output Total 2625 ml Balance 4375 ml Capillary Refill : Less Than 3 Seconds General Appearance: No Apparent Distress, WD/WN Neck: Full Range of Motion, Normal Inspection, Supple Respiratory: Crackles, Decreased Breath Sounds Cardiovascular: Regular Rate, Rhythm, No Murmur Gastrointestinal: soft, tenderness Extremity: Normal Capillary Refill, Normal Inspection, Normal Range of Motion Neurologic/Psychiatric: Alert, Oriented x3 Skin: Normal Color, Warm/Dry Results Lab Laboratory Tests 04/19/19 04:31: White Blood Count 11.0, Red Blood Count 2.66L, Hemoglobin 7.7L, Hematocrit 24L, Mean Corpuscular Volume 92, Mean Corpuscular Hemoglobin 29, Mean Corpuscular Hemoglobin Concent 32, Red Cell Distribution Width 18.8H, Platelet Count 193, Mean Platelet Volume 9.7, Neutrophils (%) (Auto) 66, Lymphocytes (%) (Auto) 20, Monocytes (%) (Auto) 10, Eosinophils (%) (Auto) 3, Basophils (%) (Auto) 0, Neutrophils # (Auto) 7.3, Lymphocytes # (Auto) 2.3, Monocytes # (Auto) 1.1H, Eosinophils # (Auto) 0.3, Basophils # (Auto) 0.0, Sodium Level 143, Potassium Level 3.3L, Chloride Level 116H, Carbon Dioxide Level 21, Anion Gap 6, Blood Urea Nitrogen 10, Creatinine 0.67, Estimat Glomerular Filtration Rate > 60, BUN/Creatinine Ratio 15, Glucose Level 128H, Calcium Level 7.8L, Corrected Calcium 8.8, Total Bilirubin 0.2, Aspartate Amino Transf (AST/SGOT) 11, Alanine Aminotransferase (ALT/SGPT) 13, Alkaline Phosphatase 39L, Total Protein 4.4L, Albumin 2.7L Microbiology 04/16/19 Blood Culture - Preliminary, Resulted No growth 04/16/19 MRSA Screen - Final, Complete MRSA not isolated 04/16/19 Urine Culture - Preliminary, Resulted Mixed Bacterial Tanika Morganella morganii Assessment/Plan Assessment/Plan Assess & Plan/Chief Complaint A 83 year old female with Anemia secondary to GI Bleed. She does have history of Afib and has been on anticoagulation. Hgb 7.7 this morning but clinically stable and will continue to monitor. Continue PUD prophylaxis and Carafate. Will start fentanyl IV as needed for pain. Clear liquid diet. Will start colonic prep today and will have colonoscopy on Saturday (04/20) Clinical Quality Measures DVT/VTE Risk/Contraindication: Risk Factor Score Per Nursin RFS Level Per Nursing on Admit: 4+=Very High ABHISHEK العراقي BINGO USHER Apr 19, 2019 10:06
[2019-04-19] MEDS: RT-ADVAIR HFA 115/21 MCG PER PUFF IH SCH ×2 (10:22→20:56)
[2019-04-19] MEDS: RT-ALBUTEROL/IPRATROPIUM 3 ML (DUONEB) VIAL INH SCH ×2 (10:23→20:55)
[2019-04-19] MEDS ORDERED: MAGNESIUM CITRATE 300 ML BTL PO PRN (10:30)
[2019-04-19] MEDS ORDERED: MAGNESIUM CITRATE 300 ML BTL PO NR (10:30)
[2019-04-19] MEDS ORDERED: KCL 20 MEQ TAB (K-DUR) PO NR (10:30)
[2019-04-19] MEDS ORDERED: CEFEPIME 2 GM (MAXIPIME) VIAL ONE (11:12)
[2019-04-19] MEDS ORDERED: WATER (STERILE) FOR INJECTION 20 ML ONE (11:12)
[2019-04-19] MEDS: CEFEPIME 2,000 MG/SWFI 20 ML IV PUSH IV SCH ×2 (11:24)
--- NOTE | 2019-04-19 11:28 | Diagnostic Imaging Report ---
INDICATION: Dyspnea. Time of exam: 3:07 AM Correlation is made with prior study from one day earlier. Changes of median sternotomy and CABG are noted. Heart is enlarged but stable. Congestive changes throughout both lungs persists. There is no effusion or pneumothorax. IMPRESSION: Continued findings of congestive failure. Dictated by: Dictated on workstation # [id number]
[2019-04-19 12:00] VITALS: BP 121/78
--- NOTE | 2019-04-19 13:39 | Progress Note (SOAP) ---
Subjective Subjective/Events-last exam Patient states that she is feeling better this AM. Sitting up eating breakfast. Tolerating PO diet. No N/V. Denies any blood in stool. Review of Systems Date Seen by Provider: Apr 19, 2019 Time Seen by Provider: 09:00 Pulmonary: Dyspnea, Cough Cardiovascular: No: Chest Pain, Palpitations Gastrointestinal: Abdominal Pain (epigastric pain); No: Nausea, Vomiting Neurological: Weakness Focused Exam Lactate Level 04/16/19 15:20: Lactic Acid Level 2.64*H 04/16/19 17:40: Lactic Acid Level 1.81 04/17/19 01:21: Lactic Acid Level 0.57 Time of Focused Exam: 17:05 Objective Exam Last Set of Vital Signs Vital Signs Date Time Temp Pulse Resp B/P (MAP) Pulse Ox O2 Delivery O2 Flow Rate FiO2 04/19/19 12:39 135 04/19/19 08:00 99.0 20 129/69 (89) 95 Nasal Cannula 1.00 04/16/19 19:09 29 Capillary Refill : Less Than 3 Seconds I&O Intake and Output 04/19/19 00:00 Intake Total 8950 ml Output Total 2425 ml Balance 6525 ml Intake Oral 1930 ml IV Total 7020 ml Output Urine Total 2425 ml General: Alert, Oriented X3, Cooperative, Mild Distress Lungs: Other (diffuse wheezing bilaterally, mildly increase work of breathing with minimal activity) Heart: Regular Rate, No Murmurs Abdomen: Normal Bowel Sounds, Soft, No Tenderness, No Masses Extremities: No Edema, No Tenderness/Swelling Neuro: Normal Speech Results/Procedures Lab Laboratory Tests 04/19/19 04:31: White Blood Count 11.0, Red Blood Count 2.66L, Hemoglobin 7.7L, Hematocrit 24L, Mean Corpuscular Volume 92, Mean Corpuscular Hemoglobin 29, Mean Corpuscular He moglobin Concent 32, Red Cell Distribution Width 18.8H, Platelet Count 193, Mean Platelet Volume 9.7, Neutrophils (%) (Auto) 66, Lymphocytes (%) (Auto) 20, Monocytes (%) (Auto) 10, Eosinophils (%) (Auto) 3, Basophils (%) (Auto) 0, Neut rophils # (Auto) 7.3, Lymphocytes # (Auto) 2.3, Monocytes # (Auto) 1.1H, Eosinophils # (Auto) 0.3, Basophils # (Auto) 0.0, Sodium Level 143, Potassium Level 3.3L, Chloride Level 116H, Carbon Dioxide Level 21, Anion Gap 6, Blood Urea Nitrogen 10, Creatinine 0.67, Estimat Glomerular Filtration Rate > 60, BUN/Creatinine Ratio 15, Glucose Level 128H, Calcium Level 7.8L, Corrected Calcium 8.8, Total Bilirubin 0.2, Aspartate Amino Transf (AST/SGOT) 11, Alanine Aminotransferase (ALT/SGPT) 13, Alkaline Phosphatase 39L, Total Protein 4.4L, Albumin 2.7L Microbiology 04/16/19 Blood Culture - Preliminary, Resulted No growth 04/16/19 MRSA Screen - Final, Complete MRSA not isolated 04/16/19 Urine Culture - Final, Complete Mixed Bacterial Tanika Morganella morganii Radiology CT abdomen IMPRESSION: 1. Small hepatic and renal cysts. 2. 4.2 cm infrarenal abdominal aortic aneurysm. 3. Midline anterior abdominal wall hernia containing only omental fat. 4. No other acute abnormality in the abdomen or pelvis. CXR: IMPRESSION: Cardiomegaly with chronic-appearing increased interstitial markings and mild central vascular congestion. No new consolidation or pleural fluid. Assessment/Plan Assessment/Plan (1) UTI (urinary tract infection) due to urinary indwelling catheter Status: Acute Assessment & Plan: With high WBC and hypotension and elevated LA concerning for possible sepsis, however complicating picture is GI bleed leading to hypotension. Started on cefepime, culture pending. 04/18: Continue antibiotics at this time, draining clear urine Qualifiers: Qualified Codes: T83.511A - Infection and inflammatory reaction due to indwelling urethral catheter, initial encounter; N39.0 - Urinary tract infection, site not specified (2) GI bleed Status: Acute Assessment & Plan: Hold Eliquis, Surgery consulted, EGD this am. Transfused PRBCs on admission. 04/18: Ulcer with signs of recent bleed seen on EGD, Surgery following, IV protonix and carafate 04/19: Drop in Hgb today, will continue to monitor stool Qualifiers: Qualified Codes: K92.2 - Gastrointestinal hemorrhage, unspecified (3) Acute blood loss anemia Status: Acute Assessment & Plan: Suspect upper GI source, Surgery consulted, EGD this am. IV PPI. 04/18: hgb stable this AM, will continue to monitor 6/2: Drop in Hgb this AM, Will continue to monitor, If <7 will transfuse given CAD (4) Atrial fibrillation Status: Chronic Assessment & Plan: Hold Eliraeganis. Cardiology consulted. Qualifiers: Qualified Codes: I48.2 - Chronic atrial fibrillation (5) Coronary artery disease Status: Chronic Qualifiers: Qualified Codes: I25.10 - Atherosclerotic heart disease of [place] coronary artery without angina pectoris (6) Abdominal aortic aneurysm (AAA) 3.0 cm to 5.0 cm in diameter in female Status: Chronic (7) Chronic obstructive airway disease Onset Date: 03/15/2015 Status: Chronic Assessment & Plan: MAT protocol. Resume home inhalers. 6/2: Increased shortness of breath this AM, start steroids and IS (8) DVT prophylaxis Status: Acute Assessment & Plan: SCDs, no pharmacologic due to active bleed (9) Physical deconditioning Status: Acute Assessment & Plan: 6/2: Up to chair, PT/OT Clinical Quality Measures DVT/VTE Risk/Contraindication: Risk Factor Score Per Nursin RFS Level Per Nursing on Admit: 4+=Very High ASYA BURLESON MD Apr 19, 2019 13:39
[2019-04-19 14:25] VITALS: BP 129/69
--- NOTE | 2019-04-19 15:02 | Progress Note-Cardiology ---
Cardiology SOAP Progress Note Subjective: Tires easily Feels nervous at times, she says No cp or palp or syncope Objective: I&O/Vital Signs 04/19/19 04/19/19 04/19/19 04/19/19 04:53 07:00 08:00 12:39 Temp 98.6 99.0 Pulse 98 103 121 135 Resp 20 20 B/P (MAP) 122/56 (78) 129/69 (89) Pulse Ox 93 95 O2 Delivery Nasal Cannula Nasal Cannula O2 Flow Rate 1.00 1.00 04/19/19 14:25 Pulse 135 Pulse Ox 95 FiO2 100 04/19/19 00:00 Intake Total 4830 ml Output Total 1475 ml Balance 3355 ml Weight (Pounds): 201 Weight (Ounces): 3.2 Weight (Calculated Kilograms): 91.520459 Constitutional: AAO x 3, well-developed, well-nourished Respiratory: No accessory muscle use, No respiratory distress; rhonchi (scattered), other (SOB with conversation) Cardiovascular: irregularly irregular; No JVD; tachycardia, S1 and S2, systolic murmur Gastrointestional: tender, audible bowel sounds (hyperactive) Extremities: no lower extremity edema bilateral Neurologic/Psychiatric: grossly intact Skin: normal color, warm/dry Results/Procedures: Labs Laboratory Tests 04/19/19 04:31: White Blood Count 11.0, Red Blood Count 2.66L, Hemoglobin 7.7L, Hematocrit 24L, Mean Corpuscular Volume 92, Mean Corpuscular Hemoglobin 29, Mean Corpuscular Hemoglobin Concent 32, Red Cell Distribution Width 18.8H, Platelet Count 193, Mean Platelet Volume 9.7, Neutrophils (%) (Auto) 66, Lymphocytes (%) (Auto) 20, Monocytes (%) (Auto) 10, Eosinophils (%) (Auto) 3, Basophils (%) (Auto) 0, Neutrophils # (Auto) 7.3, Lymphocytes # (Auto) 2.3, Monocytes # (Auto) 1.1H, Eosinophils # (Auto) 0.3, Basophils # (Auto) 0.0, Sodium Level 143, Potassium Level 3.3L, Chloride Level 116H, Carbon Dioxide Level 21, Anion Gap 6, Blood Urea Nitrogen 10, Creatinine 0.67, Estimat Glomerular Filtration Rate > 60, BUN/Creatinine Ratio 15, Glucose Level 128H, Calcium Level 7.8L, Corrected Calcium 8.8, Total Bilirubin 0.2, Aspartate Amino Transf (AST/SGOT) 11, Alanine Aminotransferase (ALT/SGPT) 13, Alkaline Phosphatase 39L, Total Protein 4.4L, Albumin 2.7L Microbiology 04/16/19 Blood Culture - Preliminary, Resulted No growth 04/16/19 MRSA Screen - Final, Complete MRSA not isolated 04/16/19 Urine Culture - Final, Complete Mixed Bacterial Tanika Morganella morganii Laboratory Tests 04/18/19 06:40 04/19/19 04:31 A/P: Assessment: GI bleed with hypovolemic shock. GI bleed due to a bleeding prepyloric ulcer (managed by the Surg Svce) Suspected UTI with possible sepsis (managed by the Med Svce) Severe bilateral ICA stenoses; s/p R CEA with Dr Valenzuela at [facility] in Dec 2017; s/p L carotid PCI at [facility] in January 2018 (Dr Valenzuela) Chronic dyspnea likely multi-factorial: COPD and diastolic dysfunction and physical deconditioning. 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) S/P right hip replacement Fall due to loss of balance (tripped over walker), no syncope, on 03/10/15 Acute on chronic diastolic CHF on 03/10/15 CAD - s/p [address] Maza at [facility] [place] in : GREY to LAD, SVG to OM1 and SVG to PDA. Cardiac cath of Oct 15, 2017 (done following an MPI that showed apical ischemia) showed widely patent aortocoronary graft to the distal RCA, widely patent aortocoronary graft to OM system, widely patent left internal mammary artery graft to the distal LAD, normal to hyperdynamic LV systolic function with an ejection fraction of approx 70%, normal LVEDP, no evidence of thoracic aortic aneurysm or dissection, mod-sized infrarenal abdominal aortic aneurysm, mild prox stenosis of the left renal artery. For which she has been maintained on ASA and Plavix Peripheral angiogram with runoffs of March 2018: Moderate-sized, infrarenal, saccular abdominal aortic aneurysm. A 70% ostial and proximal stenoses of the renal arteries on both sides. 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 Proximal occlusion of the right superficial femoral artery which reconstitutes via collaterals in its distal portion. There is a 2- vessel runoff in the leg. Multiple up to 75% stenoses in the mid and distal portions of the left superficial femoral artery. For these findings she was referred to [facility] Echo of 03/05/18 showed LVEF 75-80%, grade 3 mcqueen dysfunction, PASP 45 mmHg, mod biatrial enlartgement, AoV sclerosis, and mild to mod TR COPD Tobaccoism, quit 2009 HTN H/o hypothyroidism that is followed by her fam phy S/P suprapubic catheter placement per Dr. James on 11-26-2017 Plan: * Complex management issue due to multiple comorbidities * Hold antiplatelet agents and anticoag until prepyloric ulcer heals. Resume these when source of bleed fully treated * BP improved and ventricular rate rapid. Add long-acting diltiazem CHELLE GOETZ MD FACP FAC CCDS Apr 19, 2019 15:02
[2019-04-19] MEDS ORDERED: DILTIAZEM 240 MG (CARDIZEM CD) CAP PO NR (15:15)
[2019-04-19 15:35] VITALS: BP 139/65
[2019-04-19] MEDS: FUROSEMIDE 20 MG (LASIX) TAB PO SCH (15:58)
[2019-04-19] MEDS: methylPREDNISolone 40 MG/ML (Solu-MEDROL) VIAL IV SCH (15:58)
[2019-04-19 19:01] VITALS: BP 131/72
[2019-04-19] MEDS: traZODone 50 MG (DESYREL) TAB PO SCH (20:44)
[2019-04-19] MEDS: ATORVASTATIN 40 MG (LIPITOR) TABLET PO SCH (20:44)
[2019-04-19] MEDS: LORazepam 0.5 MG (ATIVAN) TABLET PO SCH (20:46)
[2019-04-20] VITALS (7 sets, daily range): BP systolic 106–146; BP diastolic 57–70
[2019-04-20] MEDS: SUCRALFATE 1 GM (CARAFATE) TAB PO SCH ×4 (06:17→21:23)
[2019-04-20 07:04] LABS: ABSOLUTE RETIC # 153 10e9/L (24-90); BASOPHILS % (AUTO) 0 % (0-10); EOSINOPHILS % (AUTO) 0 % (0-10); HEMATOCRIT 27 % (35-52); HEMOGLOBIN 8.5 G/DL (11.5-16.0); LYMPHOCYTES # (AUTO) 0.9 X 10^3 (1.0-4.0); LYMPHOCYTES % (AUTO) 9 % (12-44); MEAN CORPUSCULAR HEMOGLOBIN 29 PG (25-34); MEAN CORPUSCULAR HGB CONC 32 G/DL (32-36); MEAN CORPUSCULAR VOLUME 91 FL (80-99); MEAN PLATELET VOLUME 10.1 FL (7.4-10.4); MONOCYTES # (AUTO) 0.5 X 10^3 (0.0-1.0); MONOCYTES % (AUTO) 4 % (0-12); NEUTROPHILS # (AUTO) 9.1 X 10^3 (1.8-7.8); NEUTROPHILS % (AUTO) 87 % (42-75); PLATELET COUNT 223 10^3/uL (130-400); RED CELL DISTRIBUTION WIDTH 18.5 % (10.0-14.5); RETICULOCYTE % 5.25 % (0.50-2.40); WHITE BLOOD COUNT 10.4 10^3/uL (4.3-11.0)
[2019-04-20 07:20] LABS: BUN/CREATININE RATIO 12; CALCIUM 8.1 MG/DL (8.5-10.1); CARBON DIOXIDE 24 MMOL/L (21-32); CHLORIDE 108 MMOL/L (98-107); CREATININE SERUM 0.67 MG/DL (0.60-1.30); GFR ESTIMATED > 60; GLUCOSE 188 MG/DL (70-105); POTASSIUM 3.6 MMOL/L (3.6-5.0); SODIUM 139 MMOL/L (135-145)
--- NOTE | 2019-04-20 07:45 | Diagnostic Imaging Report ---
Indication: Shortness of breath. Portable chest 4:02 AM There are postop changes from CABG surgery. Heart size and pulmonary vascularity are within normal limits. Lungs are clear. Impression: Postsurgical changes. No acute abnormalities seen. There is less vascular congestion compared to the previous day's study. Dictated by: Dictated on workstation # [id number]
[2019-04-20] MEDS: CEFEPIME 2,000 MG/SWFI 20 ML IV PUSH IV SCH ×2 (08:17)
[2019-04-20] MEDS: methylPREDNISolone 40 MG/ML (Solu-MEDROL) VIAL IV SCH (08:18)
[2019-04-20] MEDS: PANTOPRAZOLE 40 MG (PROTONIX) VIAL IV SCH ×2 (08:18→21:23)
[2019-04-20] MEDS: RT-ADVAIR HFA 115/21 MCG PER PUFF IH SCH ×2 (08:30→19:43)
[2019-04-20] MEDS: RT-ALBUTEROL/IPRATROPIUM 3 ML (DUONEB) VIAL INH SCH ×2 (08:31→19:43)
[2019-04-20] MEDS: buPROPion SR 150 MG (WELLBUTRIN SR) TAB PO SCH ×2 (09:31→21:24)
[2019-04-20] MEDS: DILTIAZEM 240 MG (CARDIZEM CD) CAP PO SCH (09:31)
[2019-04-20] MEDS: GABAPENTIN 400 MG (NEURONTIN) CAP PO SCH ×3 (09:31→21:24)
[2019-04-20] MEDS: SERTRALINE 50 MG (ZOLOFT) TABLET PO SCH (09:32)
--- NOTE | 2019-04-20 09:44 | Progress Note-Hospitalist ---
Subjective HPI/CC On Admission Date Seen by Provider: Apr 20, 2019 Time Seen by Provider: 09:00 Subjective/Events-last exam Pt ready for colonoscopy by Dr. Ibrahim No significant issues per nurse Pt maintained on oxygen and upright in a chair sleeping but appears to be very declined Palliative care consult referral and I did speak to palliative care nurse Maintains a full code which I don't think that would be in her best interest Reviewed meds and labs Review of Systems General: Fatigue Pulmonary: Dyspnea Focused Exam Time of Focused Exam: 17:05 Objective Exam Vital Signs Vital Signs Date Time Temp Pulse Resp B/P (MAP) Pulse Ox O2 Delivery O2 Flow Rate FiO2 04/20/19 15:35 97.6 104 16 111/57 (75) 99 Nasal Cannula 1.00 04/19/19 14:25 100 Capillary Refill : Less Than 3 Seconds General Appearance: No Apparent Distress, WD/WN, Chronically ill Neck: Full Range of Motion, Normal Inspection, Supple Respiratory: Crackles, Decreased Breath Sounds Cardiovascular: Regular Rate, Rhythm, No Murmur Extremity: Normal Capillary Refill, Normal Inspection, Normal Range of Motion Neurologic/Psychiatric: Alert, Oriented x3, Disoriented Skin: Normal Color, Warm/Dry Results/Procedures Lab Laboratory Tests 04/20/19 06:55 Patient resulted labs reviewed. Assessment/Plan Assessment and Plan Assess & Plan/Chief Complaint Assessment: (1) UTI (urinary tract infection) due to urinary indwelling catheter (2) GI bleed (3) Acute blood loss anemia (4) Atrial fibrillation (5) Coronary artery disease (6) Abdominal aortic aneurysm (AAA) 3.0 cm to 5.0 cm in diameter in female (7) Chronic obstructive airway disease (8) DVT prophylaxis (9) Physical deconditioning (10) Poor prognosis/secured DNR through Palliative Care consultation (11) Transfusion of 2 units of blood Plan: Monitor closely DNR Colonoscopy today Poor prognosis Diagnosis/Problems Diagnosis/Problems (1) Urinary tract infection associated with indwelling urethralcatheter Status: Acute Qualifiers: Encounter type: subsequent encounter Qualified Codes: T83.511D - Infection and inflammatory reaction due to indwelling urethral catheter, subsequent encounter; N39.0 - Urinary tract infection, site not specified (2) Shocks, hemorrhagic Status: Resolved Resolution Date/Time: 04/20/19 @ 19:48 (3) GI bleed Status: Acute Qualifiers: GI bleed type/associated pathology: unspecified gastrointestinal hemorrhage type Qualified Codes: K92.2 - Gastrointestinal hemorrhage, unspecified (4) Acute blood loss anemia Status: Acute (5) Atrial fibrillation Status: Chronic Qualifiers: Atrial fibrillation type: chronic Qualified Codes: I48.2 - Chronic atrial fibrillation (6) Coronary artery disease Status: Chronic Qualifiers: Coronary Disease-Associated Artery/Lesion type: [place] artery [place] vs. transplanted heart: [place] heart Associated angina: without angina Qualified Codes: I25.10 - Atherosclerotic heart disease of [place] coronary artery without angina pectoris (7) Abdominal aortic aneurysm (AAA) 3.0 cm to 5.0 cm in diameter in female Status: Chronic (8) Nausea and vomiting Status: Resolved Qualifiers: Vomiting Intractability: unspecified Resolution Date/Time: 04/20/19 @ 19:48 (9) Anxiety Status: Chronic (10) Leukocytosis Status: Acute Qualifiers: Leukocytosis type: leukemoid reaction Qualified Codes: D72.823 - Leukemoid reaction (11) Osteoarthritis Onset Date: 11/02/2014 Status: Chronic Qualifiers: Osteoarthritis location: unspecified site Osteoarthritis type: unspecified Qualified Codes: M19.90 - Unspecified osteoarthritis, unspecified site (12) Chronic obstructive airway disease Onset Date: 03/15/2015 Status: Chronic Qualifiers: COPD type: unspecified COPD Qualified Codes: J44.9 - Chronic obstructive pulmonary disease, unspecified (13) Thyroid dysfunction Status: Chronic (14) Hypoxia Status: Acute (15) CHF (congestive heart failure) Status: Acute Qualifiers: Heart failure type: unspecified Heart failure chronicity: unspecified Qualified Codes: I50.9 - Heart failure, unspecified (16) Physical deconditioning Status: Acute (17) Left pulmonary lesion Status: Chronic (18) DVT prophylaxis Status: Acute (19) DNR (do not resuscitate) Status: Acute (20) Transfusion of blood during current hospitalization Status: Acute Clinical Quality Measures DVT/VTE Risk/Contraindication: Risk Factor Score Per Nursin RFS Level Per Nursing on Admit: 4+=Very High BARBER CRONIN DO Apr 20, 2019 09:44
--- NOTE | 2019-04-20 10:03 | Physical Therapy Evaluation ---
PT Evaluation-General Medical Diagnosis Admission Date April 16, 2019 at 17:00 Medical Diagnosis: GI bleed Onset Date: April 16, 2019 Therapy Diagnosis Therapy Diagnosis: debility/weakness Height/Weight Height (Feet): 5 Height (Inches): 2.00 Weight (Pounds): 201 Weight (Ounces): 0.0 Precautions Precautions/Isolations: Fall Prevention, Standard Precautions Weight Bear Status Right Lower Extremity: Right Full Weight Bearing Left Lower Extremity: Left Full Weight Bearing Referral Physician: Suni Reason for Referral: Evaluation/Treatment Medical History Pertinent Medical History: Atrial Fib, CABG, CAD, COPD, DM, GERD, Heart Failure, HTN, OA Current History EMS from [place] secondary to 2-3 day black tarry diarrhea Reviewed History: Yes Social History Home: Intermediate Prior/Core [facility] Prior Level of Function Therapy Code Descriptions/Definitions Functional [place] Measure: 0=Not Assessed/NA 4=Minimal Assistance 1=Total Assistance 5=Supervision or Setup 2=Maximal Assistance 6=Modified [place] 3=Moderate Assistance 7=Complete [place] Therapy Quality Codes: 6 Independent with activity with or without an assistive device 5 Patient requires set up or clean up by helper. Patient completes activity by themselves 4 Supervision or touching assist (CGA). [place] provide cues , steadying assist 3 The helper provides less than half the effort to complete the activity 2 The helper provides more than half the effort to complete the activity 1 Dependent. The helper does all the effort to complete an activity 7 Patient refused to complete or attempt activity 9 The patient did not perform the activity before the current illness or injury 88 Not attempted due to Medical conditions or safety concerns Functional Abilities and Goals: Independent: Patient completed the activities by him/herself, with or without an assistive device, with no assistance from a helper. Needed Some Help: Patient needed partial assistance from another person to complete activities. Dependent: A helper completed the activities for the patient. Unknown: Not Applicable: Bed Mobility: 5 Transfers (B,C,W/C) (FIM): 5 Gait: 1 Indoor Mobility (Ambulation): Needed Some Help Stairs: Not Applicalbe Prior Devices Use: Walker per patient, she does not ambulate, however, it appears she may be able to PT Evaluation-Current Subjective Patient agrees to PT. Noted incontinent BM during treatment requiring PT to clean floor as patient transferred. Pain Numeric Pain Scale: 0-No Pain Location: No Pain Reported Objective Patient Orientation: Person Problem Solving: Fair Attachments: Oxygen ROM/Strength ROM Lower Extremities bilateral LE WFL Strength Lower Extremities 3+/5 grossly bilaterally Integumentary/Posture Integumentary refer to nursing notes Bowel Incontinence: Yes Posture WFL Neuromuscular (Tone, Coordination, Reflexes) grossly intact Sensory Vision: Functional Hearing: Impaired Sensation Right Lower Extremit: Impaired Sensation Left Lower Extremity: Impaired Transfers Therapy Code Descriptions/Definitions Functional [place] Measure: 0=Not Assessed/NA 4=Minimal Assistance 1=Total Assistance 5=Supervision or Setup 2=Maximal Assistance 6=Modified [place] 3=Moderate Assistance 7=Complete [place] Transfers (B, C, W/C) (FIM): 5 Scootin Sit to/from Stand: 5 patient is SBA with sit to stand and SBA transfer recliner to [facility] Gait Mode of Locomotion: Both Anticipated Mode of Locomotion: Both Gait (FIM): 1 Distance (FIM): 1=up to 49 ft Distance: 3 steps Gait Level of Assist: 5 Gait Persons Needed: 1 Gait Assistive Device: None Comments/Gait Description due to incontinent BM and patient to have colonoscopy on this date, PT will begin ambulation in a.m. Balance Sitting Static: Normal Sitting Dynamic: Normal Standing Static: Good Standing Dynamic: Good Assessment/Needs 83 y.o. female, will benefit from skilled PT to address functional strength and mobility to improve current LOF and to safely return to [place] at maximum LOF. Patient was transferred to [facility] for BM and nursing notified. Patient has call light in hand. Rehab Potential: Fair PT Curriculum Writer Goals Curriculum Writer Goals PT Curriculum Writer Goals Time Frame: May 01, 2019 Transfers (B,C,W/C) (FIM): 5 Gait (FIM): 1 Gait distance (FIM): 1=up to 49 ft Distance: 45' Gait Level of Assist: 5 Gait Assistive Device: FWW PT Plan Problem List Problem List: Activity Tolerance, Functional Strength, Safety, Gait Treatment/Plan Treatment Plan: Continue Plan of Care Treatment Plan: Bed Mobility, Education, Functional Activity Laisha, Functional Strength, Gait, Safety, Therapeutic Exercise, Transfers Treatment Duration: May 01, 2019 Frequency: 6 times per week Estimated Hrs Per Day: .25 hour per day Patient and/or Family Agrees t: Yes Discharge Recommendations Therapy D/C Recommendations: Intermediate Placement Time/GCodes Time In: 934 Time Out: 944 Total Billed Treatment Time: 10 Total Billed Treatment 1 visit EVLowC 10 min MANUEL GORDON PT Apr 20, 2019 10:03
--- NOTE | 2019-04-20 10:21 | Progress Note-Cardiology ---
Cardiology SOAP Progress Note Subjective: Gen malaise and weakness and exertional shortness of breath, slowly improving No cp or palp or syncope Objective: I&O/Vital Signs 04/20/19 04/20/19 04/20/19 04/20/19 00:00 01:00 04:00 07:00 Temp 97.7 98.2 Pulse 102 92 107 89 Resp 20 20 B/P (MAP) 138/69 (92) 142/70 (94) Pulse Ox 94 98 O2 Delivery Nasal Cannula Nasal Cannula O2 Flow Rate 1.00 1.00 04/20/19 04/20/19 08:00 08:31 Temp 97.8 Pulse 82 Resp 20 B/P (MAP) 121/62 (81) Pulse Ox 98 96 O2 Delivery Nasal Cannula Nasal Cannula O2 Flow Rate 1.00 2.00 04/20/19 00:00 Intake Total 2340 ml Output Total 2900 ml Balance -560 ml Weight (Pounds): 201 Weight (Ounces): 0.0 Weight (Calculated Kilograms): 91.550165 Constitutional: AAO x 3, well-developed, well-nourished Respiratory: No accessory muscle use, No respiratory distress; rhonchi (scattered), other (SOB with conversation) Cardiovascular: irregularly irregular; No JVD; tachycardia, S1 and S2, systolic murmur Gastrointestional: tender, audible bowel sounds (hyperactive) Extremities: no lower extremity edema bilateral Neurologic/Psychiatric: grossly intact Skin: normal color, warm/dry Results/Procedures: Labs Laboratory Tests 04/20/19 06:55: White Blood Count 10.4, Red Blood Count 2.92L, Hemoglobin 8.5L, Hematocrit 27L, Mean Corpuscular Volume 91, Mean Corpuscular Hemoglobin 29, Mean Corpuscular Hemoglobin Concent 32, Red Cell Distribution Width 18.5H, Platelet Count 223, Mean Platelet Volume 10.1, Neutrophils (%) (Auto) 87H, Lymphocytes (%) (Auto) 9L , Monocytes (%) (Auto) 4, Eosinophils (%) (Auto) 0, Basophils (%) (Auto) 0, Neutrophils # (Auto) 9.1H, Lymphocytes # (Auto) 0.9L, Monocytes # (Auto) 0.5, Eosinophils # (Auto) 0.0, Basophils # (Auto) 0.0, Absolute Reticulocyte Count 153H, Percent Reticulocyte Count 5.25H, Sodium Level 139, Potassium Level 3.6, Chloride Level 108H, Carbon Dioxide Level 24, Anion Gap 7, Blood Urea Nitrogen 8, Creatinine 0.67, Estimat Glomerular Filtration Rate > 60, BUN/Creatinine Ratio 12, Glucose Level 188H, Calcium Level 8.1L Microbiology 04/16/19 Blood Culture - Preliminary, Resulted No growth 04/16/19 MRSA Screen - Final, Complete MRSA not isolated 04/16/19 Urine Culture - Final, Complete Mixed Bacterial Tanika Morganella morganii Laboratory Tests 04/19/19 04:31 04/20/19 06:55 A/P: Assessment: GI bleed with hypovolemic shock. GI bleed due to a bleeding prepyloric ulcer (managed by the Surg Svce) Suspected UTI with possible sepsis (managed by the Med Svce) Severe bilateral ICA stenoses; s/p R CEA with Dr Valenzuela at [facility] in Dec 2017; s/p L carotid PCI at [facility] in January 2018 (Dr Valenzuela) Chronic dyspnea likely multi-factorial: COPD and diastolic dysfunction and physical deconditioning. Prolonged hospitalization post-CABG for physical deconditioning in 2014 Chronic atrial fib, first documented on an ECG of 09/27/17 at [facility], rate currently not well controlled Eliquis for stroke prophylaxis - hold for now H/o old lacunar infarction, including R internal capsule (based on w/u of Dec 2017 at [facility]) S/P right hip replacement Fall due to loss of balance (tripped over walker), no syncope, on 03/10/15 Acute on chronic diastolic CHF on 03/10/15 CAD - s/p [address] Maza at [facility] in : GREY to LAD, SVG to OM1 and SVG to PDA. Cardiac cath of Oct 15, 2017 (done following an MPI that showed apical ischemia) showed widely patent aortocoronary graft to the distal RCA, widely patent aortocoronary graft to OM system, widely patent left internal mammary artery graft to the distal LAD, normal to hyperdynamic LV systo lic function with an ejection fraction of approx 70%, normal LVEDP, no evidence of thoracic aortic aneurysm or dissection, mod-sized infrarenal abdominal aortic aneurysm, mild prox stenosis of the left renal artery. For which she has been maintained on ASA and Plavix Peripheral angiogram with runoffs of March 2018: Moderate-sized, infrarenal, saccular abdominal aortic aneurysm. A 70% ostial and proximal stenoses of the renal arteries on both sides. 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 Proximal occlusion of the right superficial femoral artery which reconstitutes via collaterals in its distal portion. There is a 2- vessel runoff in the leg. Multiple up to 75% stenoses in the mid and distal portions of the left superficial femoral artery. For these findings she was referred to [facility] Echo of 03/05/18 showed LVEF 75-80%, grade 3 mcqueen dysfunction, PASP 45 mmHg, mod biatrial enlartgement, AoV sclerosis, and mild to mod TR COPD Tobaccoism, quit 2009 HTN H/o hypothyroidism that is followed by her fam phy S/P suprapubic catheter placement per Dr. James on 11-26-2017 Plan: * Complex management issue due to multiple comorbidities * Hold antiplatelet agents and anticoag until prepyloric ulcer heals. Resume these when source of bleed fully treated * Monitor labs from time to time CHELLE GOETZ MD FACP FAC CCDS Apr 20, 2019 10:21
--- NOTE | 2019-04-20 10:56 | NUR ---
CM/SS. Patient has established residency with [facility] assisted living. Will monitor progress for patient return to [facility] vs short term skilled care with [facility]. Per staff at [facility], patient could ambulate but mostly self propelled in her wheelchair.
--- NOTE | 2019-04-20 11:12 | NUR ---
PALLIATIVE CARE RN consult received. This RN spent 45 minutes with the patient talking about present illness, her husbands illness of dementia and his ultimate passing. 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 She reports that if she is unable to live independently losing her ability to be able to take care of her own bathing/bathroom needs she would prefer to not live. We discussed CODE status.. she does not want the ventilator but does want compressions at this time. I explained what that would do to her with the possibility of traumatic injury to ribs..she is going to talk to to her son, whom she says is her POA for medical. She is to have a colonoscopy today and she reports she would consider surgery if they think they can fix the problem if it came to that.
--- NOTE | 2019-04-20 11:37 | NUR ---
Patient has SP catheter ..called [facility] to see when she is due for a change of cath. I spoke with Hanh BECERRA who reports that she gets her catheter changed on the first Saturday of every month or TOMORROW. 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 She should be in isolation related to this. Spoke with Miguelito BECERRA Infection Control. Dr. Maguire notified.
--- NOTE | 2019-04-20 14:10 | NUR ---
Patients [id number], Giselle Barnes, arrived. Patient was voicing our conversation earlier in the day and they are wanting to fill out the Living Will and Power of Warp Tying Machine Knotter. This is completed and in the chart and copies given.
[2019-04-20] MEDS ORDERED: proPOfol 200 MG/20 ML (DIPRIVAN) VIAL IV ONE ×2 (14:27→14:43)
--- NOTE | 2019-04-20 14:27 | Progress Note ---
Subjective Time Seen by a Provider: 14:01 Subjective/Events-last exam Pt seen and examined, still feels weak but denies abdominal pain. No more melanotic stools. Review of Systems General: Fatigue, Malaise Pulmonary: No Dyspnea, No Cough Cardiovascular: No: Chest Pain, Palpitations Gastrointestinal: No: Nausea, Vomiting Focused Exam Time of Focused Exam: 17:05 Objective Exam Vital Signs Date Time Temp Pulse Resp B/P (MAP) Pulse Ox O2 Delivery O2 Flow Rate FiO2 04/20/19 13:45 105 04/20/19 12:00 99.5 108 20 106/67 (80) 98 Nasal Cannula 1.00 04/20/19 08:31 96 Nasal Cannula 2.00 04/20/19 08:00 97.8 82 20 121/62 (81) 98 Nasal Cannula 1.00 04/20/19 08:00 Room Air 04/20/19 07:00 89 04/20/19 04:00 98.2 107 20 142/70 (94) 98 Nasal Cannula 1.00 04/20/19 01:00 92 04/20/19 00:00 97.7 102 20 138/69 (92) 94 Nasal Cannula 1.00 04/19/19 21:01 93 Nasal Cannula 2.00 04/19/19 20:56 88 Nasal Cannula 1.00 04/19/19 20:00 Room Air 04/19/19 19:01 98.9 116 20 131/72 (91) 95 Nasal Cannula 1.00 04/19/19 19:00 106 04/19/19 15:35 98.7 113 20 139/65 (89) 95 Nasal Cannula 1.00 04/19/19 14:25 135 95 100 I & O 04/20/19 07:00 Intake Total 2340 ml Output Total 3450 ml Balance -1110 ml Capillary Refill : Less Than 3 Seconds General Appearance: No Apparent Distress, WD/WN Neck: Full Range of Motion, Normal Inspection, Supple Respiratory: Crackles, Decreased Breath Sounds Cardiovascular: Regular Rate, Rhythm, No Murmur Peripheral Pulses: 2+ Radial Pulses (R), 2+ Radial Pulses (L) Gastrointestinal: normal bowel sounds, non tender, soft, no organomegaly, no p ulsatile mass Extremity: Normal Capillary Refill, Normal Inspection, Normal Range of Motion Neurologic/Psychiatric: Alert, Oriented x3 Skin: Normal Color, Warm/Dry Results Lab Laboratory Tests 04/20/19 06:55: White Blood Count 10.4, Red Blood Count 2.92L, Hemoglobin 8.5L, Hematocrit 27L, Mean Corpuscular Volume 91, Mean Corpuscular Hemoglobin 29, Mean Corpuscular Hemoglobin Concent 32, Red Cell Distribution Width 18.5H, Platelet Count 223, Mean Platelet Volume 10.1, Neutrophils (%) (Auto) 87H, Lymphocytes (%) (Auto) 9L , Monocytes (%) (Auto) 4, Eosinophils (%) (Auto) 0, Basophils (%) (Auto) 0, Neutrophils # (Auto) 9.1H, Lymphocytes # (Auto) 0.9L, Monocytes # (Auto) 0.5, Eosinophils # (Auto) 0.0, Basophils # (Auto) 0.0, Absolute Reticulocyte Count 153H, Percent Reticulocyte Count 5.25H, Sodium Level 139, Potassium Level 3.6, Chloride Level 108H, Carbon Dioxide Level 24, Anion Gap 7, Blood Urea Nitrogen 8, Creatinine 0.67, Estimat Glomerular Filtration Rate > 60, BUN/Creatinine Ratio 12, Glucose Level 188H, Calcium Level 8.1L Microbiology 04/16/19 Blood Culture - Preliminary, Resulted No growth 04/16/19 MRSA Screen - Final, Complete MRSA not isolated 04/16/19 Urine Culture - Final, Complete Mixed Bacterial Tanika Morganella morganii Assessment/Plan Assessment/Plan Assessment/Plan Anemia secondary to GI Bleed. Afib and has been on anticoagulation. Plan to do colonoscopy today, went over again with pt and her daughter-in law. Risks and complications not limited to pain, bleeding, infection and even intestinal perforation. All questions answered to their satisfaction. If nothing found pt ok to go home from surrgery standpoint., Clinical Quality Measures DVT/VTE Risk/Contraindication: Risk Factor Score Per Nursin RFS Level Per Nursing on Admit: 4+=Very High MYRNA MCCOY DO Apr 20, 2019 14:27
--- NOTE | 2019-04-20 15:17 | Progress Note-Post Operative ---
Post-Operative Progess Note Surgeon (s)/Stepdown Nurse (s) Surgeon MYRNA MCCOY DO Stepdown Nurse: none Pre-Operative Diagnosis GI bleed, anemia Post-Operative Diagnosis Same Internal hemorrhoids Poor prep Procedure & Operative Findings Date of Procedure 04/20/19 Procedure Performed/Findings Colonoscopy Anesthesia Type IV sedation by HEADER DOCK Estimated Blood Loss Estimated blood loss (mL): none Specimens/Packing Specimens Removed none MYRNA MCCOY DO Apr 20, 2019 15:17
[2019-04-20] MEDS: fentaNYL INJECTION 100 MCG/2 ML AMP IVP PRN (18:47)
[2019-04-20] MEDS: traZODone 50 MG (DESYREL) TAB PO SCH (21:23)
[2019-04-20] MEDS: ATORVASTATIN 40 MG (LIPITOR) TABLET PO SCH (21:24)
[2019-04-20] MEDS: LORazepam 0.5 MG (ATIVAN) TABLET PO SCH (21:25)
--- NOTE | 2019-04-21 03:01 | OPERATIVE REPORT ---
DATE OF SERVICE: PREOPERATIVE DIAGNOSES: Anemia and gastrointestinal bleed. POSTOPERATIVE DIAGNOSES: Diverticula, internal hemorrhoids, poor prep. PROCEDURE: Colonoscopy. SURGEON: Medardo Ibrahim D.O. WET ROOM SUPERVISOR: None. ANESTHESIA: IV sedation by the HOOP MACHINE OPERATOR. SPECIMENS: None. BLOOD LOSS: None. FLUIDS: Per anesthesia. POSTOPERATIVE CONDITION: Stable. INDICATION FOR PROCEDURE: The patient is an 83-year-old female who had a gastrointestinal bleed, anemia and needed to make sure there is nothing below causing GI bleed. It has also been a long time since she has had a colonoscopy. FINDINGS: The patient had a poor prep, but did not see anything large or obviously causing bleeding. She did have some large internal hemorrhoids and small diverticula. PROCEDURE NOTE: After informed consent was obtained, the patient was brought to the endoscopy suite, placed in the bed in left lateral decubitus position. She was administered IV sedation by the HOOP MACHINE OPERATOR who then monitored her vitals the entire time, heart rate, blood pressure and pulse ox and the scope was inserted, pushed all the way about [address] to cecum, took a picture of appendiceal orifice, noted the ileocecal valve and then slowly withdrew the scope insufflating to look circumferentially at the rai looking at the cecum up to the ascending colon, hepatic flexure, then down the transverse colon, splenic flexure, into the descending colon then down the sigmoid and finally in the rectum. All throughout the colon there was some small retained fecal material covering the rai, could see some of the rai, but unable to suction and free all of it up. Did not see any obvious masses or large polyps or anything bleeding. She did have some large internal hemorrhoids. Picture of these were taken. The scope was then removed. The patient tolerated the procedure and she was recovered in endoscopy suite. Job ID: [id number] DocumentID: [id number] Dictated Date: 04/20/2019 16:01:52 Hydraulic Press Operator Date: 04/21/2019 02:58:39 Dictated By: MEDARDO IBRAHIM DO
[2019-04-21 03:51] VITALS: BP 136/76
[2019-04-21 06:33] LABS: BASOPHILS % (AUTO) 0 % (0-10); EOSINOPHILS % (AUTO) 0 % (0-10); HEMATOCRIT 25 % (35-52); HEMOGLOBIN 7.8 G/DL (11.5-16.0); LYMPHOCYTES # (AUTO) 1.5 X 10^3 (1.0-4.0); LYMPHOCYTES % (AUTO) 11 % (12-44); MEAN CORPUSCULAR HEMOGLOBIN 29 PG (25-34); MEAN CORPUSCULAR HGB CONC 31 G/DL (32-36); MEAN CORPUSCULAR VOLUME 92 FL (80-99); MEAN PLATELET VOLUME 9.8 FL (7.4-10.4); MONOCYTES # (AUTO) 0.9 X 10^3 (0.0-1.0); MONOCYTES % (AUTO) 7 % (0-12); NEUTROPHILS # (AUTO) 11.8 X 10^3 (1.8-7.8); NEUTROPHILS % (AUTO) 83 % (42-75); PLATELET COUNT 256 10^3/uL (130-400); RED CELL DISTRIBUTION WIDTH 18.8 % (10.0-14.5); WHITE BLOOD COUNT 14.3 10^3/uL (4.3-11.0)
[2019-04-21] MEDS: SUCRALFATE 1 GM (CARAFATE) TAB PO SCH ×4 (06:35→20:58)
[2019-04-21 07:02] LABS: ALANINE AMINOTRANSFERASE 25 U/L (0-55); ALKALINE PHOSPHATASE 41 U/L (40-136); BILIRUBIN,TOTAL 0.2 MG/DL (0.1-1.0); BUN/CREATININE RATIO 15; CALCIUM 8.3 MG/DL (8.5-10.1); CARBON DIOXIDE 28 MMOL/L (21-32); CHLORIDE 110 MMOL/L (98-107); CREATININE SERUM 0.67 MG/DL (0.60-1.30); GFR ESTIMATED > 60; GLUCOSE 168 MG/DL (70-105); POTASSIUM 4.3 MMOL/L (3.6-5.0); SODIUM 143 MMOL/L (135-145); TOTAL PROTEIN 4.8 GM/DL (6.4-8.2)
[2019-04-21] MEDS: RT-ALBUTEROL/IPRATROPIUM 3 ML (DUONEB) VIAL INH SCH ×4 (07:28→23:04)
[2019-04-21] MEDS: RT-ADVAIR HFA 115/21 MCG PER PUFF IH SCH ×2 (07:28→19:12)
[2019-04-21 08:00] VITALS: BP 130/75
[2019-04-21] MEDS: CEFEPIME 2,000 MG/SWFI 20 ML IV PUSH IV SCH ×2 (08:57)
[2019-04-21] MEDS: buPROPion SR 150 MG (WELLBUTRIN SR) TAB PO SCH ×2 (08:57→20:58)
[2019-04-21] MEDS: GABAPENTIN 400 MG (NEURONTIN) CAP PO SCH ×3 (08:57→20:58)
[2019-04-21] MEDS: SERTRALINE 50 MG (ZOLOFT) TABLET PO SCH (08:57)
[2019-04-21] MEDS: PANTOPRAZOLE 40 MG (PROTONIX) VIAL IV SCH ×2 (08:57→20:58)
[2019-04-21] MEDS: methylPREDNISolone 40 MG/ML (Solu-MEDROL) VIAL IV SCH ×3 (08:57→18:14)
[2019-04-21] MEDS: DILTIAZEM 240 MG (CARDIZEM CD) CAP PO SCH (08:58)
--- NOTE | 2019-04-21 10:04 | Progress Note-Hospitalist ---
Subjective HPI/CC On Admission Date Seen by Provider: Apr 21, 2019 Time Seen by Provider: 10:00 Subjective/Events-last exam Set for discharge today per Dr. Ibrahim since colonoscopy was negative but now she is wheezing and requiring nebulizer treatments and she does not require oxygen at home usually and she is using it Maintain DNR order secured yesterday Will order physical therapy and occupational therapy Will go [facility] once ready Consulting Dr Alfonso Review of Systems General: Fatigue Pulmonary: Dyspnea, Cough Focused Exam Time of Focused Exam: 17:05 Objective Exam Vital Signs Vital Signs Date Time Temp Pulse Resp B/P (MAP) Pulse Ox O2 Delivery O2 Flow Rate FiO2 04/21/19 15:27 97.8 98 18 146/71 (96) 92 Nasal Cannula 2.00 04/19/19 14:25 100 Capillary Refill : Less Than 3 Seconds General Appearance: No Apparent Distress, WD/WN, Chronically ill Neck: Full Range of Motion, Normal Inspection, Supple Respiratory: Crackles, Decreased Breath Sounds, Wheezing Cardiovascular: Regular Rate, Rhythm, No Murmur Extremity: Normal Capillary Refill, Normal Inspection, Normal Range of Motion Neurologic/Psychiatric: Alert, Oriented x3, Disoriented Skin: Normal Color, Warm/Dry Results/Procedures Lab Laboratory Tests 04/21/19 06:10 Patient resulted labs reviewed. Assessment/Plan Assessment and Plan Assess & Plan/Chief Complaint Assessment: (1) UTI (urinary tract infection) due to urinary indwelling catheter (2) GI bleed (3) Acute blood loss anemia (4) Atrial fibrillation (5) Coronary artery disease (6) Abdominal aortic aneurysm (AAA) 3.0 cm to 5.0 cm in diameter in female (7) Chronic obstructive airway disease (8) DVT prophylaxis (9) Physical deconditioning (10) Poor prognosis/secured DNR through Palliative Care consultation (11) Transfusion of 2 units of blood (12) Wheezing Plan: Monitor closely DNR Colonoscopy reviewed Nebs ordered, consult Dr Alfonso Poor prognosis Diagnosis/Problems Diagnosis/Problems (1) Urinary tract infection associated with indwelling urethralcatheter Status: Acute Qualifiers: Encounter type: subsequent encounter Qualified Codes: T83.511D - Infection and inflammatory reaction due to indwelling urethral catheter, subsequent encounter; N39.0 - Urinary tract infection, site not specified (2) Shocks, hemorrhagic Status: Resolved Resolution Date/Time: 04/20/19 @ 19:48 (3) GI bleed Status: Acute Qualifiers: GI bleed type/associated pathology: unspecified gastrointestinal hemorrhage type Qualified Codes: K92.2 - Gastrointestinal hemorrhage, unspecified (4) Acute blood loss anemia Status: Acute (5) Atrial fibrillation Status: Chronic Qualifiers: Atrial fibrillation type: chronic Qualified Codes: I48.2 - Chronic atrial fibrillation (6) Coronary artery disease Status: Chronic Qualifiers: Coronary Disease-Associated Artery/Lesion type: [place] artery [place] vs. transplanted heart: [place] heart Associated angina: without angina Qualified Codes: I25.10 - Atherosclerotic heart disease of [place] coronary artery without angina pectoris (7) Abdominal aortic aneurysm (AAA) 3.0 cm to 5.0 cm in diameter in female Status: Chronic (8) Nausea and vomiting Status: Resolved Qualifiers: Vomiting Intractability: unspecified Resolution Date/Time: 04/20/19 @ 19:48 (9) Anxiety Status: Chronic (10) Leukocytosis Status: Acute Qualifiers: Leukocytosis type: leukemoid reaction Qualified Codes: D72.823 - Leukemoid reaction (11) Osteoarthritis Onset Date: 11/02/2014 Status: Chronic Qualifiers: Osteoarthritis location: unspecified site Osteoarthritis type: unspecified Qualified Codes: M19.90 - Unspecified osteoarthritis, unspecified site (12) Chronic obstructive airway disease Onset Date: 03/15/2015 Status: Chronic Qualifiers: COPD type: unspecified COPD Qualified Codes: J44.9 - Chronic obstructive pulmonary disease, unspecified (13) Thyroid dysfunction Status: Chronic (14) Hypoxia Status: Acute (15) CHF (congestive heart failure) Status: Acute Qualifiers: Heart failure type: unspecified Heart failure chronicity: unspecified Q ualified Codes: I50.9 - Heart failure, unspecified (16) Physical deconditioning Status: Acute (17) Left pulmonary lesion Status: Chronic (18) DVT prophylaxis Status: Acute (19) DNR (do not resuscitate) Status: Acute (20) Transfusion of blood during current hospitalization Status: Acute (21) Wheezing Status: Acute (22) Elevated brain natriuretic peptide (BNP) level Status: Acute Clinical Quality Measures DVT/VTE Risk/Contraindication: Risk Factor Score Per Nursin RFS Level Per Nursing on Admit: 4+=Very High BARBER CRONIN DO Apr 21, 2019 10:04
--- NOTE | 2019-04-21 10:44 | NUR ---
CM/SS. Plan is return to [facility] under skilled status. Monitoring patient progress re same. Confirmed with [facility] they do have a room available for patient since she is not returning directly to her [place] apartment. CARE Assessment pending.
--- NOTE | 2019-04-21 10:50 | Physical Therapy Daily Note ---
PT Daily Note-Current Subjective Patient agrees to PT. Noted suprapubic catheter leaking with soiled bed and gown. RN notified. Pain Numeric Pain Scale: 0-No Pain Location: No Pain Reported Mental Status Patient Orientation: Person, Situation Attachments: Oxygen, Suprapubic Catheter Transfers Therapy Code Descriptions/Definitions Functional [place] Measure: 0=Not Assessed/NA 4=Minimal Assistance 1=Total Assistance 5=Supervision or Setup 2=Maximal Assistance 6=Modified [place] 3=Moderate Assistance 7=Complete [place] Therapy Quality Codes: 6 Independent with activity with or without an assistive device 5 Patient requires set up or clean up by helper. Patient completes activity by themselves 4 Supervision or touching assist (CGA). [place] provide cues , steadying assist 3 The helper provides less than half the effort to complete the activity 2 The helper provides more than half the effort to complete the activity 1 Dependent. The helper does all the effort to complete an activity 7 Patient refused to complete or attempt activity 9 The patient did not perform the activity before the current illness or injury 88 Not attempted due to Medical conditions or safety concerns Transfers (B, C, W/C) (FIM): 5 Scootin Supine to/from Sit: 5 Sit to/from Stand: 5 Bed to/from Chair: 5 patient performed sit to stand transfers x 10 reps during exercise. Patient declined ambulation, however, ambulated to chair x 8' Weight Bearing Right Lower Extremity: Right Full Weight Bearing Left Lower Extremity: Left Full Weight Bearing Gait Training Gait (FIM): 1 Distance (FIM): 1=up to 49 ft Distance: 8' Gait Level of Assist: 5 Gait Assistive Device: FWW functional gait sequence Exercises Supine Ex: Ankle pumps, Quad Set, Heel Slides Supine Reps: 15 Seated Therapy Exercises: Ankle pumps, Sit to stand (10 reps), Long arc quads Seated Reps: 15 Assessment Patient is up in recliner after treatment with PT changing and cleansing patient due to catheter leakage. RN in room to address situation. PT Stave Cutter Goals Detention Goals PT Detention Goals Time Frame: May 01, 2019 Transfers (B,C,W/C) (FIM): 5 Gait (FIM): 1 Gait distance (FIM): 1=up to 49 ft Distance: 45' Gait Level of Assist: 5 Gait Assistive Device: FWW PT Plan Treatment/Plan Treatment Plan: Continue Plan of Care Treatment Plan: Bed Mobility, Education, Functional Activity Laisha, Functional Strength, Gait, Safety, Therapeutic Exercise, Transfers Treatment Duration: May 01, 2019 Frequency: 6 times per week Estimated Hrs Per Day: .25 hour per day Patient and/or Family Agrees t: Yes Time/GCodes Time In: 1015 Time Out: 1029 Total Billed Treatment Time: 14 Total Billed Treatment 1 visit FA 14 min MANUEL GORDON PT Apr 21, 2019 10:50
--- NOTE | 2019-04-21 11:37 | Pulmonary Consultation ---
History of Present Illness History of Present Illness Date of Consultation 04/21/19 11:31 Time Seen by Provider: 11:31 Date of Admission History of Present Illness 83yo poor historian presented to ED on 04/17 secondary to abdominal pain and waking up the day prior to admission with vomiting and diarrhea. Dr. Maguire is consulting me secondary to worsening SOB and wheezing. Allergies and Home Medications Allergies Coded Allergies: Sulfa (Sulfonamide Antibiotics) (Verified Allergy, Unknown, 04/16/19) diphenhydramine HCl (Verified Allergy, Unknown, 04/16/19) hydrochlorothiazide (Unverified Allergy, Unknown, 04/16/19) varenicline tartrate (Verified Allergy, Unknown, 04/16/19) Home Medications Acetaminophen 325 Mg Tablet, 650 MG PO Q4H PRN for PAIN-MILD, (Reported) TAKES 2 (325MG) TABLETS Albuterol Sulfate 8.5 Gm Hfa.aer.ad, 1 PUFF IH Q6H PRN for SHORTNESS OF BREATH, (Reported) Apixaban 5 Mg Tablet, 5 MG PO BID, (Reported) Ascorbate Calcium 500 Mg Tablet, 500 MG PO DAILY, (Reported) Aspirin 81 Mg Tab.chew, 81 MG PO DAILY, (Reported) Atorvastatin Calcium 40 Mg Tablet, 40 MG PO HS, (Reported) Budesonide/Formoterol Fumarate 10.2 Gm Hfa.aer.ad, 2 PUFF IH BID, (Reported) Bupropion HCl 300 Mg Tab.er.24h, 300 MG PO HS, (Reported) Carboxymethylcellulose Sodium 15 Ml Drops, 1 DROP OD UD PRN for EYE IRRITATION, (Reported) Furosemide 20 Mg Tablet, 20 MG PO Q48H, (Reported) Gabapentin 400 Mg Capsule, 400 MG PO TID, (Reported) Guaifenesin/Dextromethorphan 237 Ml Liquid, 5 ML PO Q4H PRN for COUGH, (Reported) Ibuprofen 200 Mg Tablet, 400 MG PO Q4H PRN for PAIN-MILD, (Reported) Lorazepam 0.5 Mg Tablet, 0.5 MG PO HS, (Reported) Mag Hydrox/Aluminum Hyd/Simeth 355 Ml Oral.susp, 30 ML PO Q4H PRN for INDIGESTION, (Reported) Metformin HCl 500 Mg Tablet, 500 MG PO 1200, (Reported) Metoprolol Tartrate 50 Mg Tablet, 50 MG PO BID, (Reported) Mirabegron 25 Mg Tab.er.24h, 25 MG PO DAILY, (Reported) Ondansetron HCl 4 Mg Tablet, 4 MG PO Q6H PRN for NAUSEA/VOMITING-1ST LINE, (Reported) Oxybutynin Chloride 10 Mg Tab.er.24, 10 MG PO DAILY, (Reported) Pantoprazole Sodium 40 Mg Tablet.dr, 40 MG PO DAILY, (Reported) Potassium Chloride 20 Meq Tab.er.prt, 40 MEQ PO Q48H, (Reported) TAKES 2 (20MEQ) TABLETS EVERY OTHER DAY WITH FUROSEMIDE Prednisolone Acetate/Pf 5 Ml Drops.susp, 1 DROP OD QID, (Reported) Sertraline HCl 50 Mg Tablet, 50 MG PO DAILY, (Reported) Tamsulosin HCl 0.4 Mg Cap, 0.4 MG PO DAILY, (Reported) Tramadol HCl 50 Mg Tablet, 50 MG PO TID, (Reported) Trazodone HCl 50 Mg Tablet, 25 MG PO HS, (Reported) TAKES 1/2 (50MG) TABLET [Flavoxate 100MG] , 100 MG PO TID PRN for BLADDER SPASMS, (Reported) Past Vadvtmk-Tznxoc-Bzyzll Hx Patient Social History Alcohol Use: Denies Use Recreational Drug Use: No Smoking Status: Former Smoker Type Used: Cigarettes Former Smoker, Quit: Oct 15, 1988 2nd Hand Smoke Exposure: No Recent Foreign Travel: No Contact w/Someone Who Travel: No Recent Infectious Disease Expo: No Recent Hopitalizations: No Physical Abuse: No (at age 11) Sexual Abuse: No (at age 11) Mistreated: No Fear: No Immunizations Up To Date Tetanus Booster (TDap): Unknown PED Vaccines UTD: No Date of Pneumonia Vaccine: Sep 05, 2014 Date of Influenza Vaccine: Aug 19, 2017 Seasonal Allergies Seasonal Allergies: No Past Medical History Surgeries: Yes Adenoidectomy, Appendectomy, Bladder Surgery, Cardiac, CABG, Gallbladder, Hysterectomy, Joint Replacement, Orthopedic, Tonsillectomy Respiratory: Yes Asthma Cardiac: Yes (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, 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, Atrial Fibrillation Neurological: Yes (HAD BRAIN SURGERY FOR ANEURYSM 2008) Reproductive Disorders: Yes Female Reproductive Disorders: Endometriosis 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 Sexually Transmitted Disease: No Genitourinary: Yes UTI-Chronic Gastrointestinal: No Chronic Constipation Musculoskeletal: Yes ( BILAT ROTATOR CUFF SURGERY) Degenerate Disk Disease, Arthritis, Chronic Back Pain Endocrine: Yes Diabetes, Non-Insulin dep Cataract Loss of Vision: Denies Hearing Impairment: Denies Cancer: No Psychosocial: Yes (panic disorder) Anxiety, Depression Integumentary: No Blood Disorders: No Adverse Reaction/Blood Tranf: No Family Medical History Cancer 09 SISTER Cancer of colon Cataract 03 MOTHER, Onset:Unknown Family history: Allergy 03 FATHER, Onset:Unknown 03 MOTHER, Onset:Unknown Family history: Arthritis 03 FATHER, Onset:Unknown 03 MOTHER, Onset:Unknown 09 SISTER, Onset:Unknown Family history: Cardiovascular disease 03 FATHER, Onset:Unknown 03 MOTHER, Onset:Unknown 09 BROTHER, Onset:Unknown 09 SISTER, Onset:Unknown Family history: Diabetes mellitus 03 MOTHER, Onset:Unknown Family history: Gastrointestinal disease 03 FATHER, Onset:Unknown Family history: Hypertension 03 MOTHER, Onset:Unknown Family history: Osteoporosis 03 MOTHER, Onset:Unknown Hearing loss 03 FATHER, Onset:Unknown Heart disease 03 FATHER, Onset:Unknown 03 MOTHER, Onset:Unknown 09 BROTHER, Onset:Unknown Hypercholesterolemia 03 MOTHER, Onset:Unknown Malignant neoplasm of lung 09 SISTER, Onset:Unknown Myocardial infarction 09 BROTHER, Onset:Unknown Parkinson's disease Stroke 03 FATHER, Onset:Unknown Thyroid disease No Family History of: Abdominal aortic aneurysm [place]'s disease Alcoholism Aphasia Chest pain Congenital heart disease Congestive heart failure Cystic fibrosis Dementia Dysphagia Family history: Alzheimer's disease Family history: Asthma Family history: Breast disease Family history: Coronary thrombosis Family history: Glaucoma Family history: Thyroid disorder Headache Hereditary disease History of - anemia History of - disorder History of - respiratory disease History of drug abuse Human immunodeficiency virus (HIV) seropositivity Infertile Kidney disease Prostate cancer Psychotic disorder Seizure disorder Tuberculosis Visual impairment Heart Disease, Diabetes Sepsis Event Evaluation Height, Weight, BMI Height: 5'2.00" Weight: 197lbs. 0.0oz. 89.529051hc; 33.5 BMI Method:Stated Exam Exam Vital Signs Date Time Temp Pulse Resp B/P (MAP) Pulse Ox O2 Delivery O2 Flow Rate FiO2 04/21/19 08:00 99.2 86 20 130/75 (93) 100 Nasal Cannula 2.00 04/21/19 08:00 Room Air 04/21/19 07:41 Nasal Cannula 3.00 04/21/19 07:28 98 Nasal Cannula 2.00 04/21/19 07:00 104 04/21/19 03:51 97.0 106 16 136/76 (96) 99 Nasal Cannula 3.00 04/21/19 01:00 94 04/20/19 23:34 97.9 86 16 129/60 (83) 99 Nasal Cannula 3.00 04/20/19 20:00 Room Air 04/20/19 19:38 97.4 110 20 146/68 (94) 97 Nasal Cannula 3.00 04/20/19 19:00 120 04/20/19 15:35 97.6 104 16 111/57 (75) 99 Nasal Cannula 1.00 04/20/19 15:15 88 16 99 OxyMask 10 04/20/19 15:10 85 16 100 OxyMask 10 04/20/19 13:45 105 04/20/19 12:00 99.5 108 20 106/67 (80) 98 Nasal Cannula 1.00 I & O 04/21/19 07:00 Intake Total 950 ml Output Total 650 ml Balance 300 ml Height & Weight Height: 5'2.00" Weight: 197lbs. 0.0oz. 89.631810yf; 33.5 BMI Method:Stated General Appearance: No Apparent Distress, WD/WN, Chronically ill Neck: Full Range of Motion, Normal Inspection, Supple Respiratory: Crackles, Decreased Breath Sounds Cardiovascular: Regular Rate, Rhythm, No Murmur Capillary Refill: Less Than 3 Seconds Peripheral Pulses: 2+ Radial Pulses (R), 2+ Radial Pulses (L) Gastrointestinal: normal bowel sounds, non tender, soft, no organomegaly, no pulsatile mass Extremity: Normal Capillary Refill, Normal Inspection, Normal Range of Motion Neurologic/Psychiatric: Alert, Oriented x3, Disoriented Skin: Normal Color, Warm/Dry Results Lab Laboratory Tests 04/20/19 06:55 04/21/19 06:10 Assessment/Plan Assessment/Plan COPDAE with worsening SOB with accessory muscle use -Check ABG, BNP -CXR reviewed -Increase solumedrol to 40 IV Q 6 -Increase Duoneb to Q4 -- D/C MAT protocol GIB with Anemia s/p transfusions CHF -Check BNP -CXR reviewed Afib - chronic CAD N/V WILL CASPER DO Apr 21, 2019 11:37
--- NOTE | 2019-04-21 11:47 | Occupational Therapy Eval ---
OT Evaluation-General/PLF Medical Diagnosis Admission Date April 16, 2019 at 17:00 Medical Diagnosis: GI bleed Onset Date: April 16, 2019 Therapy Diagnosis Therapy Diagnosis: impaired ADLs and mobiltiy Height/Weight Height (Feet): 5 Height (Inches): 2.00 Weight (Pounds): 197 Weight (Ounces): 0.0 Precautions Precautions/Isolations: Fall Prevention, Standard Precautions Safety Interventions: Reorient-PRN Weight Bear Status Weight Bearing Restriction: Weight Bearing/Tolerated Referral Physician: Suni Referral Reason: Activity Tolerance, Self Care, Evaluation/Treatment, Strengthening/ROM Medical History Pertinent Medical History: Atrial Fib, CABG, CAD, COPD, DM, GERD, Heart Failure, HTN, OA Current History EMS from [place] secondary to 2-3 day black tarry diarrhea Reviewed History: Yes Social History Home: Assisted Living Entry Into Home: Level Entry ADL-Prior Level of Function Therapy Code Descriptions/Definitions Functional [place] Measure: 0=Not Assessed/NA 4=Minimal Assistance 1=Total Assistance 5=Supervision or Setup 2=Maximal Assistance 6=Modified [place] 3=Moderate Assistance 7=Complete [place] Therapy Quality Codes: 6 Independent with activity with or without an assistive device 5 Patient requires set up or clean up by helper. Patient completes activity by themselves 4 Supervision or touching assist (CGA). [place] provide cues , steadying assist 3 The helper provides less than half the effort to complete the activity 2 The helper provides more than half the effort to complete the activity 1 Dependent. The helper does all the effort to complete an activity 7 Patient refused to complete or attempt activity 9 The patient did not perform the activity before the current illness or injury 88 Not attempted due to Medical conditions or safety concerns Functional Abilities and Goals: Independent: Patient completed the activities by him/herself, with or without an assistive device, with no assistance from a helper. Needed Some Help: Patient needed partial assistance from another person to complete activities. Dependent: A helper completed the activities for the patient. Unknown: Not Applicable: Self Care: Independent Functional Cognition: Independent DME/Equipment: Shower pt stated she had stroke less than a year ago and has been using w/c since then. pt stated she is independent with performing stand pivot transfers from w/c. Drive Self: No OT Current Status Subjective pt laying in bed upon OT Arrival in no apparent distress. pt agreed to OT evaluation session. pt complains of no pain. Mental Status/Objective Patient Orientation: Person, Place, Time, Situation Attachments: Askew Catheter, Oxygen Current Glasses/Contacts: Yes Hearing Aids: No Dentures/Partials: Yes Hand Dominance: Right Upper Extremity ROM WFL Upper Extremity Coordination WFL sunny UE Upper Extremity Sensation WFL Sunny UE Upper Extremity Strength Sunny UE 4/5 MMT ADL-Treatment Therapy Code Descriptions/Definitions Functional [place] Measure: 0=Not Assessed/NA 4=Minimal Assistance 1=Total Assistance 5=Supervision or Setup 2=Maximal Assistance 6=Modified [place] 3=Moderate Assistance 7=Complete [place] Therapy Quality Codes: 6 Independent with activity with or without an assistive device 5 Patient requires set up or clean up by helper. Patient completes activity by themselves 4 Supervision or touching assist (CGA). [place] provide cues , steadying assist 3 The helper provides less than half the effort to complete the activity 2 The helper provides more than half the effort to complete the activity 1 Dependent. The helper does all the effort to complete an activity 7 Patient refused to complete or attempt activity 9 The patient did not perform the activity before the current illness or injury 88 Not attempted due to Medical conditions or safety concerns Lower Body Dressing (FIM): 4 (pt education on figure four positioning whne donning/ doffing/ sunny sock. pt demo with CGA forsafety/ balance. noted SOB with activity. pt ed on pursed lip breathing pt demo correctly. ) Transfers (B, C, W/C) (FIM): 4 (pt educaiton on proper positoning/ hand placement when perform stand piviot transfer. pt demo with CGA. ) pt demo ability to performed mobility with MIN A, LB dressing with CGA for safety/ balance, UB dressing with set up, bathing with CGA for safety/ balance, and CGA for stand pivot transfers. noted increase HR into 130's with activity and SOB with activity. Education OT Patient Education: Energy conservation, Modified ADL techniques, Progress toward Goal/Update tx plan, Purpose of tx/functional activities, Safety issues, Transfer techniques Teaching Recipient: Patient Teaching Methods: Discussion Response to Teaching: Verbalize Understanding OT Short Term Goals Short Term Goals Grooming(FIM): 5 Bathing(FIM): 5 Bathing Location: L Arm, R Arm, L Upper Leg, R Upper Leg, L Lower Leg (including foot), R Lower Leg (including foot), Chest, Abdomen, Buttocks, Perineal Area Upper Body Dressing(FIM): 5 Lower Body Dressing(FIM): 5 Toileting(FIM): 5 Transfers (B,C,W/C) (FIM): 5 Toilet/Commode Transfer(FIM): 5 1=Demonstrate adherence to instructed precautions during ADL tasks. 2=Patient will verbalize/demonstrate understanding of assistive devices/modif ications for ADL. 3=Patient will improve strength/tolerance for activity to enable patient to perform ADL's. OT Pile Driving Supervisor Goals Prison Goals Eating (FIM): 6 Lower Body Dressing(FIM): 6 Toileting(FIM): 6 Transfers (B,C,W/C) (FIM): 6 Toilet/Commode Transfer(FIM): 6 1=Demonstrate adherence to instructed precautions during ADL tasks. 2=Patient will verbalize/demonstrate understanding of assistive devices/modifications for ADL. 3=Patient will improve strength/tolerance for activity to enable patient to perform ADL's. OT Education/Plan Problem List/Assessment pt would benefit from OT services to increase independence with ADLS. functional transfers. d/c recommendation to SNF Discharge Recommendations Plan/Recommendations: Continue POC Therapy D/C Recommendations: [facility] (TCU/[facility]) Treatment Plan/Plan of Care Treatment,Training & Education: Yes Patient would benefit from OT for education, treatment and training to promote independence in ADL's, mobility, safety and/or upper extremity function for ADL's. Plan of Care: ADL Retraining, Functional Mobility, Group Exercise/Act as Ind, UE Funct Exercise/Act Treatment Duration: May 05, 2019 Frequency: 5 times per week Estimated Hrs Per Day: .25 hour per day Rehab Potential: Fair Time/GCodes Start Time: 11:35 Stop Time: 12:00 Billed Treatment Time EVM 15 minutes ADL 10 minutes, 1 unit RITU GALVAN OT Apr 21, 2019 11:47
[2019-04-21 12:00] VITALS: BP 121/63
--- NOTE | 2019-04-21 12:35 | Cardiology Progress Note ---
Subjective Date Seen by Provider: Apr 21, 2019 Time Seen by Provider: 12:32 Focused Exam Time of Focused Exam: 17:05 Objective-Cardiology Exam Last Set of Vital Signs Vital Signs 04/22/19 04/22/19 00:30 08:00 Temp 98.2 Pulse 120 Resp 20 B/P (MAP) 94/62 (73) Pulse Ox 93 O2 Delivery Nasal Cannula O2 Flow Rate 2.00 FiO2 100 Capillary Refill : Less Than 3 Seconds I&O Intake and Output 04/21/19 23:59 Intake Total 2190 ml Output Total 3000 ml Balance -810 ml Intake Oral 2190 ml Output Urine Total 3000 ml General: Alert, Oriented X3, Cooperative, Mild Distress Lungs: Other (diffuse wheezing bilaterally, mildly increase work of breathing with minimal activity) Heart: Regular Rate, No Murmurs Abdomen: Normal Bowel Sounds, Soft, No Tenderness, No Masses Extremities: No Edema, No Tenderness/Swelling Skin: No Rashes, No Breakdown Neuro: Normal Speech Psych/Mental Status: Mental Status NL Results Lab A/P-Cardiology Admission Diagnosis GI Bleed Atrial fibrillation CAD HTN Assessment/Plan GI bleed with hypovolemic shock. GI bleed due to a bleeding prepyloric ulcer (managed by the Surg Svce) Suspected UTI with possible sepsis, managed by the Med Svce Severe bilateral ICA stenoses; s/p R CEA with Dr Valenzuela at [facility] in Dec 2017; s/p L carotid PCI at [facility] in January 2018 (Dr Valenzuela) Chronic dyspnea likely multi-factorial: COPD and diastolic dysfunction and physical deconditioning. Prolonged hospitalization post-CABG for physical deconditioning in 2014 Chronic atrial fib, first documented on an ECG of 09/27/17 at [facility], rate currently not well controlled Eliquis for stroke prophylaxis - continue to hold for now H/o old lacunar infarction, including R internal capsule (based on w/u of Dec 2017 at [facility]) S/P right hip replacement Acute on chronic diastolic CHF on 03/10/15 CAD - s/p [address] Maza at [facility] in -2014: GREY to LAD, SVG to OM1 and SVG to PDA. Cardiac cath of Oct 15, 2017 (done following an MPI that showed apical ischemia) showed widely patent aortocoronary graft to the distal RCA, widely patent aortocoronary graft to OM system, widely patent left internal mammary artery graft to the distal LAD, normal to hyperdynamic LV systolic function with an ejection fraction of approx 70%, normal LVEDP, no ev idence of thoracic aortic aneurysm or dissection, mod-sized infrarenal abdominal aortic aneurysm, mild prox stenosis of the left renal artery. For which she has been maintained on ASA and Plavix Peripheral angiogram with runoffs of March 2018: Moderate-sized, infrarenal, saccular abdominal aortic aneurysm. A 70% ostial and proximal stenoses of the renal arteries on both sides. 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 Proximal occlusion of the right superficial femoral artery which reconstitutes via collaterals in its distal portion. There is a 2- vessel runoff in the leg. Multiple up to 75% stenoses in the mid and distal portions of the left superficial femoral artery. For these findings she was referred to [facility] Echo of 03/05/18 showed LVEF 75-80%, grade 3 mcqueen dysfunction, PASP 45 mmHg, mod biatrial enlartgement, AoV sclerosis, and mild to mod TR COPD Tobaccoism, quit 2009 HTN, controlled, continue to monitor. H/o hypothyroidism that is followed by her fam phy S/P suprapubic catheter placement per Dr. James on 11-26-2017 Clinical Quality Measures DVT/VTE Risk/Contraindication: Risk Factor Score Per Nursin RFS Level Per Nursing on Admit: 4+=Very High NASIR WILLS Apr 21, 2019 12:35
--- NOTE | 2019-04-21 13:16 | Pulmonary Progress Note ---
Sepsis Event Evaluation Height, Weight, BMI Height: 5'2.00" Weight: 197lbs. 0.0oz. 89.045933jp; 33.5 BMI Method:Stated Focused Exam Time of Focused Exam: 17:05 Exam Exam Vital Signs Date Time Temp Pulse Resp B/P (MAP) Pulse Ox O2 Delivery O2 Flow Rate FiO2 04/21/19 08:00 99.2 86 20 130/75 (93) 100 Nasal Cannula 2.00 04/21/19 08:00 Room Air 04/21/19 07:41 Nasal Cannula 3.00 04/21/19 07:28 98 Nasal Cannula 2.00 04/21/19 07:00 104 04/21/19 03:51 97.0 106 16 136/76 (96) 99 Nasal Cannula 3.00 04/21/19 01:00 94 04/20/19 23:34 97.9 86 16 129/60 (83) 99 Nasal Cannula 3.00 04/20/19 20:00 Room Air 04/20/19 19:38 97.4 110 20 146/68 (94) 97 Nasal Cannula 3.00 04/20/19 19:00 120 04/20/19 15:35 97.6 104 16 111/57 (75) 99 Nasal Cannula 1.00 04/20/19 15:15 88 16 99 OxyMask 10 04/20/19 15:10 85 16 100 OxyMask 10 04/20/19 13:45 105 I & O 04/21/19 07:00 Intake Total 950 ml Output Total 650 ml Balance 300 ml Height & Weight Height: 5'2.00" Weight: 197lbs. 0.0oz. 89.794199ss; 33.5 BMI Method:Stated General Appearance: No Apparent Distress, WD/WN, Chronically ill Neck: Full Range of Motion, Normal Inspection, Supple Respiratory: Crackles, Decreased Breath Sounds Cardiovascular: Regular Rate, Rhythm, No Murmur Capillary Refill: Less Than 3 Seconds Peripheral Pulses: 2+ Radial Pulses (R), 2+ Radial Pulses (L) Gastrointestinal: normal bowel sounds, non tender, soft, no organomegaly, no pulsatile mass Extremity: Normal Capillary Refill, Normal Inspection, Normal Range of Motion Neurologic/Psychiatric: Alert, Oriented x3, Disoriented Skin: Normal Color, Warm/Dry Results Lab Laboratory Tests 04/20/19 06:55 04/21/19 06:10 Assessment/Plan Assessment/Plan COPDAE with worsening SOB with accessory muscle use -Check ABG, BNP -CXR reviewed -Increase solumedrol to 40 IV Q 6 -Increase Duoneb to Q4 -- D/C MAT protocol GIB with Anemia s/p transfusions CHF -Check BNP -CXR reviewed Afib - chronic CAD N/V WILL CASPER DO Apr 21, 2019 13:16
[2019-04-21] MEDS: fentaNYL INJECTION 100 MCG/2 ML AMP IVP PRN (14:01)
[2019-04-21 15:27] VITALS: BP 146/71
[2019-04-21 16:09] LABS: ABG BASE EXCESS 0.3 MMOL/L (-2.5-2.5); ABG OXYGEN SATURATION 95 % (94-100); ABG PCO2 37 MMHG (35-45); ABG PH 7.44 (7.37-7.43); ABG PO2 69 MMHG (79-93); ABG TCO2 25.2 MMOL/L (21.0-31.0)
[2019-04-21 16:13] LABS: ALLENS TEST POSITIVE; INSPIRED O2 3 L; PATIENT TEMP 98.6; VENTILATOR NO
--- NOTE | 2019-04-21 16:27 | Cardiology Progress Note ---
Subjective Date Seen by Provider: Apr 21, 2019 Time Seen by Provider: 16:26 Subjective/Events-last exam patient is laying down in bed, still having shortness of breath. No chest pain Review of Systems General: No Chills, No Night Sweats, No Fatigue, No Malaise, No Appetite, No Other HEENT: No Head Aches, No Visual Changes, No Eye Pain, No Ear Pain, No Dysphasia, No Sinus Congestion, No Post Nasal Drip, No Sore Throat, No Other Pulmonary: No Dyspnea, No Cough, No Pleuritic Chest Pain, No Other Cardiovascular: No: Chest Pain, Palpitations, Orthopnea, Paroxysmal Noc. Dyspnea, Edema, Lt Headedness, Other Focused Exam Time of Focused Exam: 17:05 Objective-Cardiology Exam Last Set of Vital Signs Vital Signs 04/19/19 04/21/19 04/21/19 04/21/19 14:25 12:00 13:00 15:17 Temp 98.6 Pulse 96 Resp 20 B/P (MAP) 121/63 (82) Pulse Ox 94 O2 Delivery Nasal Cannula O2 Flow Rate 3.00 FiO2 100 Capillary Refill : Less Than 3 Seconds I&O Intake and Output 04/21/19 00:00 Intake Total 950 ml Output Total 1200 ml Balance -250 ml Intake Oral 950 ml Output Urine Total 1200 ml # Bowel Movements 5 General: Alert, Oriented X3, Cooperative, Mild Distress Neck: Supple Lungs: Other (diffuse wheezing bilaterally, mildly increase work of breathing with minimal activity) Heart: Regular Rate, Normal S1, Normal S2, No Murmurs Abdomen: Normal Bowel Sounds, Soft, No Tenderness, No Masses Extremities: No Edema, No Tenderness/Swelling Skin: No Rashes, No Breakdown Neuro: Normal Speech Psych/Mental Status: Mental Status NL Results Lab Laboratory Tests 04/21/19 06:10 A/P-Cardiology Admission Diagnosis GI Bleed Atrial fibrillation CAD HTN Assessment/Plan GI bleed with hypovolemic shock. GI bleed due to a bleeding prepyloric ulcer (managed by the Surg Svce), continue to monitor H&H, still anemic at this time. Suspected UTI with possible sepsis, managed by the Med Svce Severe bilateral ICA stenoses; s/p R CEA with Dr Valenzuela at [facility] in Dec 2017; s/p L carotid PCI at [facility] in January 2018 (Dr Valenzuela) Chronic dyspnea likely multi-factorial: COPD and diastolic dysfunction and physical deconditioning. Prolonged hospitalization post-CABG for physical deconditioning in 2014I'll have elevated BNP, I will evaluate 2-D echocardiogram Chronic atrial fib, first documented on an ECG of 09/27/17 at [facility], rate cu rrently not well controlled Eliquis for stroke prophylaxis - continue to hold for now H/o old lacunar infarction, including R internal capsule (based on w/u of Dec 2017 at [facility]) S/P right hip replacement Acute on chronic diastolic CHF on 03/10/15 CAD - s/p [address] Maza at [facility] in : GREY to LAD, SVG to OM1 and SVG to PDA. Cardiac cath of Oct 15, 2017 (done following an MPI that showed apical ischemia) showed widely patent aortocoronary graft to the distal RCA, widely patent aortocoronary graft to OM system, widely patent left internal mammary artery graft to the distal LAD, normal to hyperdynamic LV systolic function with an ejection fraction of approx 70%, normal LVEDP, no evidence of thoracic aortic aneurysm or dissection, mod-sized infrarenal abdominal aortic aneurysm, mild prox stenosis of the left renal artery. For which she has been maintained on ASA and Plavix Peripheral angiogram with runoffs of March 2018: Moderate-sized, infrarenal, saccular abdominal aortic aneurysm. A 70% ostial and proximal stenoses of the renal arteries on both sides. 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 Proximal occlusion of the right superficial femoral artery which reconstitutes via collaterals in its distal portion. There is a 2- vessel runoff in the leg. Multiple up to 75% stenoses in the mid and distal portions of the left superficial femoral artery. For these findings she was referred to [facility] Echo of 03/05/18 showed LVEF 75-80%, grade 3 mcqueen dysfunction, PASP 45 mmHg, mod biatrial enlartgement, AoV sclerosis, and mild to mod TR COPD Tobaccoism, quit 2009 HTN, controlled, continue to monitor. H/o hypothyroidism that is followed by her fam phy S/P suprapubic catheter placement per Dr. James on 11-26-2017 Clinical Quality Measures DVT/VTE Risk/Contraindication: Risk Factor Score Per Nursin RFS Level Per Nursing on Admit: 4+=Very High MARY RIVERO MD Apr 21, 2019 16:27
--- NOTE | 2019-04-21 16:35 | NUR ---
Pt shared extensively about her theodora, and shared about her journey closer to the Lord after her 's . She has found a meaningful connection within her oriental orthodox at [facility]. She demonstrates dynamic trust in God and inner juvencio with gratitude. Pt welcomed prayer and requested contact of her directory operator, Alex Eller. This crusher screen repairer contacted Pastor Eller following our visit.
[2019-04-21] MEDS: FUROSEMIDE 20 MG (LASIX) TAB PO SCH (17:52)
[2019-04-21 19:18] VITALS: BP 142/89
[2019-04-21] MEDS ORDERED: FUROSEMIDE 40 MG/4 ML INJ (LASIX) IVP NR (19:45)
[2019-04-21] MEDS: ATORVASTATIN 40 MG (LIPITOR) TABLET PO SCH (20:57)
[2019-04-21] MEDS: LORazepam 0.5 MG (ATIVAN) TABLET PO SCH (20:58)
[2019-04-21] MEDS: traZODone 50 MG (DESYREL) TAB PO SCH (20:58)
[2019-04-22] VITALS (8 sets, daily range): BP systolic 94–132; BP diastolic 57–68
[2019-04-22] MEDS: methylPREDNISolone 40 MG/ML (Solu-MEDROL) VIAL IV SCH ×4 (01:02→16:44)
[2019-04-22] MEDS: RT-ALBUTEROL/IPRATROPIUM 3 ML (DUONEB) VIAL INH SCH ×6 (03:01→22:08)
[2019-04-22] MEDS: SUCRALFATE 1 GM (CARAFATE) TAB PO SCH ×4 (06:01→22:38)
[2019-04-22] MEDS: RT-ADVAIR HFA 115/21 MCG PER PUFF IH SCH ×2 (06:31→18:50)
--- NOTE | 2019-04-22 07:35 | Pulmonary Progress Note ---
Subjective Time Seen by a Provider: 07:35 Subjective/Events-last exam Pt appears very anxious however denies SOB currently Sepsis Event Evaluation Height, Weight, BMI Height: 5'2.00" Weight: 191lbs. 0.0oz. 86.277378cb; 33.5 BMI Method:Stated Focused Exam Time of Focused Exam: 17:05 Exam Exam Vital Signs Date Time Temp Pulse Resp B/P (MAP) Pulse Ox O2 Delivery O2 Flow Rate FiO2 04/22/19 06:37 Nasal Cannula 3.00 04/22/19 06:31 98 Nasal Cannula 4.00 04/22/19 04:29 98.5 109 20 125/68 (87) 98 Nasal Cannula 2.00 04/22/19 03:01 96 Nasal Cannula 4.00 04/22/19 01:01 101 04/22/19 00:30 100 Vapotherm 40.00 100 04/22/19 00:05 98.4 106 22 126/60 (82) 97 Nasal Cannula 2.00 04/21/19 23:05 93 Nasal Cannula 4.00 04/21/19 20:00 Room Air 04/21/19 19:18 98.3 117 18 142/89 (106) 94 Nasal Cannula 2.00 04/21/19 19:12 Nasal Cannula 4.00 04/21/19 19:12 94 Nasal Cannula 4.00 04/21/19 19:04 119 04/21/19 15:27 97.8 98 18 146/71 (96) 92 Nasal Cannula 2.00 04/21/19 15:17 94 Nasal Cannula 3.00 04/21/19 13:00 96 04/21/19 12:00 98.6 102 20 121/63 (82) 93 Nasal Cannula 2.00 04/21/19 08:00 99.2 86 20 130/75 (93) 100 Nasal Cannula 2.00 04/21/19 08:00 Room Air 04/21/19 07:41 Nasal Cannula 3.00 I & O 04/22/19 07:00 Intake Total 2310 ml Output Total 6150 ml Balance -3840 ml Height & Weight Height: 5'2.00" Weight: 191lbs. 0.0oz. 86.346772by; 33.5 BMI Method:Stated General Appearance: WD/WN, Anxious, Chronically ill, Mild Distress Neck: Full Range of Motion, Normal Inspection, Supple Respiratory: Crackles, Decreased Breath Sounds, Wheezing Cardiovascular: Regular Rate, Rhythm, No Murmur Capillary Refill: Less Than 3 Seconds Peripheral Pulses: 2+ Radial Pulses (R), 2+ Radial Pulses (L) Gastrointestinal: normal bowel sounds, non tender, soft, no organomegaly, no pulsatile mass Extremity: Normal Capillary Refill, Normal Inspection, Normal Range of Motion Neurologic/Psychiatric: Alert, Oriented x3, Disoriented Skin: Normal Color, Warm/Dry Results Lab Laboratory Tests 04/21/19 06:10 Assessment/Plan Assessment/Plan COPDAE with worsening SOB with accessory muscle use -CXR reviewed -Increase solumedrol to 40 IV Q 6 -Increase Duoneb to Q4 -- D/C MAT protocol Leukocytosis- secondary to steroids GIB with Anemia s/p transfusions CHF -BNP - is elevated -Will give 60mg of Lasix IV X 1 -CXR reviewed Afib - chronic CAD N/V WILL CASPER DO Apr 22, 2019 07:35
[2019-04-22] MEDS ORDERED: KCL 20 MEQ TAB (K-DUR) PO NR (07:45)
[2019-04-22] MEDS ORDERED: FUROSEMIDE 40 MG/4 ML INJ (LASIX) IVP NR (07:45)
[2019-04-22] MEDS: CEFEPIME 2,000 MG/SWFI 20 ML IV PUSH IV SCH ×2 (08:34)
[2019-04-22] MEDS: SERTRALINE 50 MG (ZOLOFT) TABLET PO SCH (08:34)
[2019-04-22] MEDS: GABAPENTIN 400 MG (NEURONTIN) CAP PO SCH ×3 (08:34→22:40)
[2019-04-22] MEDS: PANTOPRAZOLE 40 MG (PROTONIX) VIAL IV SCH ×2 (08:34→22:38)
[2019-04-22] MEDS: buPROPion SR 150 MG (WELLBUTRIN SR) TAB PO SCH ×2 (08:34→22:41)
[2019-04-22] MEDS ORDERED: DILTIAZEM 120 MG (CARDIZEM CD) CAP PO NR (09:30)
[2019-04-22] MEDS: LORazepam 0.5 MG (ATIVAN) TABLET PO PRN (09:32)
--- NOTE | 2019-04-22 09:40 | Occupational Ther Daily Note ---
OT Current Status-Daily Note Subjective Pt alert and oriented in her bed upon therapist arrival. Pt with no complaints of pain, however the pt was highly anxious and reporting feelings of dizziness. Nursing notified and medication administered. Mental Status/Objective Therapy Code Descriptions/Definitions Functional Dale Measure: 0=Not Assessed/NA 4=Minimal Assistance 1=Total Assistance 5=Supervision or Setup 2=Maximal Assistance 6=Modified Dale 3=Moderate Assistance 7=Complete Dale ADL-Treatment Grooming (FIM): 5 (Pt agreed to simple grooming/hygiene tasks from bed level. ) Bathing (FIM): 5 (Pt agreed to bathing UE's, face, abdomen, and hair from bed level as pt declined out of bed activity this date. ) Bathing Location: L Arm, R Arm, Chest, Abdomen Education OT Patient Education: Energy conservation Teaching Recipient: Patient Teaching Methods: Demonstration, Discussion Pt reported feeling weak and fatigued following UB sponge bathing session, with pt's UE"s presenting with significantly decreased muscle endurance, requiring frequent rest breaks during simple bathing tasks. Pt required continuous verbal cues as to the purpose of therapy, and the benefits of out of bed activity. Pt educated on the importance of getting into her chair, and out of bed, multiple times throughout the day, however the pt declined out of bed activity today despite education. OT Short Term Goals Short Term Goals Grooming(FIM): 5 Bathing(FIM): 5 Bathing Location: L Arm, R Arm, L Upper Leg, R Upper Leg, L Lower Leg (includ ing foot), R Lower Leg (including foot), Chest, Abdomen, Buttocks, Perineal Area Upper Body Dressing(FIM): 5 Lower Body Dressing(FIM): 5 Toileting(FIM): 5 Transfers (B,C,W/C) (FIM): 5 Toilet/Commode Transfer(FIM): 5 1=Demonstrate adherence to instructed precautions during ADL tasks. 2=Patient will verbalize/demonstrate understanding of assistive devices/modifications for ADL. 3=Patient will improve strength/tolerance for activity to enable patient to perform ADL's. OT Skilled Nursing Goals Skilled Nursing Goals Eating (FIM): 6 Lower Body Dressing(FIM): 6 Toileting(FIM): 6 Transfers (B,C,W/C) (FIM): 6 Toilet/Commode Transfer(FIM): 6 1=Demonstrate adherence to instructed precautions during ADL tasks. 2=Patient will verbalize/demonstrate understanding of assistive devices/modifications for ADL. 3=Patient will improve strength/tolerance for activity to enable patient to perform ADL's. OT Education/Plan Problem List/Assessment pt would benefit from OT services to increase independence with ADLS. functional transfers. d/c recommendation to SNF Discharge Recommendations Plan/Recommendations: Continue POC Treatment Plan/Plan of Care Patient would benefit from OT for education, treatment and training to promote independence in ADL's, mobility, safety and/or upper extremity function for ADL's. Plan of Care: ADL Retraining, Functional Mobility, Group Exercise/Act as Ind, UE Funct Exercise/Act Treatment Duration: May 05, 2019 Frequency: 5 times per week Estimated Hrs Per Day: .25 hour per day Rehab Potential: Fair Time/GCodes Start Time: 08:58 Stop Time: 09:39 Total Time Billed (hr/min): 41 Billed Treatment Time 1, ADL3 PAUL CABALLERO OT Apr 22, 2019 09:40
--- NOTE | 2019-04-22 09:55 | NUR ---
ACCUCHECK DONE PER DR CASPER'S REQUEST. PATIENT REPORTED TO HIM THAT SHE FELT SOD AND DIZZY.
--- NOTE | 2019-04-22 10:04 | Progress Note-Hospitalist ---
Subjective HPI/CC On Admission Date Seen by Provider: Apr 22, 2019 Time Seen by Provider: 09:00 Subjective/Events-last exam Pt still appears very in stage May need another transfusion checking labs now Dr. Alfonso evaluated her and we are both giving diuresis as treatment for elevated BMP and SOB Lungs sound very much improved today Overall feels more dizzy today Very difficult in stage medical problems and she is a [facility] pt anyway so unclear about the recovery potential here but will likely need to think about discharge and possibly on hospice Regular diet will be ordered Hemoglobin 7.8 yesterday and 8.7 today Review of Systems General: Fatigue Pulmonary: Dyspnea Focused Exam Time of Focused Exam: 17:05 Objective Exam Vital Signs Vital Signs Date Time Temp Pulse Resp B/P (MAP) Pulse Ox O2 Delivery O2 Flow Rate FiO2 04/22/19 20:00 94 Nasal Cannula 2.00 100 04/22/19 19:21 98.9 114 20 132/68 (89) Capillary Refill : Less Than 3 Seconds General Appearance: No Apparent Distress, WD/WN, Chronically ill, Other (declined) Neck: Full Range of Motion, Normal Inspection, Supple Respiratory: Normal Breath Sounds, No Accessory Muscle Use Cardiovascular: Regular Rate, Rhythm, No Murmur Extremity: Normal Capillary Refill, Normal Inspection, Normal Range of Motion Neurologic/Psychiatric: Alert, Oriented x3, Disoriented Skin: Normal Color, Warm/Dry Results/Procedures Lab Laboratory Tests 04/22/19 10:22 Patient resulted labs reviewed. Assessment/Plan Assessment and Plan Assess & Plan/Chief Complaint Assessment: (1) UTI (urinary tract infection) due to urinary indwelling catheter (2) GI bleed (3) Acute blood loss anemia (4) Atrial fibrillation (5) Coronary artery disease (6) Abdominal aortic aneurysm (AAA) 3.0 cm to 5.0 cm in diameter in female (7) Chronic obstructive airway disease (8) DVT prophylaxis (9) Physical deconditioning (10) Poor prognosis/secured DNR through Palliative Care consultation (11) Transfusion of 2 units of blood (12) Wheezing now resolved (13) Volume overload-s/p Lasix and much improved Plan: Monitor closely DNR Colonoscopy reviewed Nebs ordered, consult Dr Alfonso Poor prognosis DC soon, unable to improve much more Lasix Diagnosis/Problems Diagnosis/Problems (1) Urinary tract infection associated with indwelling urethralcatheter Status: Acute Qualifiers: Encounter type: subsequent encounter Qualified Codes: T83.511D - Infection and inflammatory reaction due to indwelling urethral catheter, subsequent encounter; N39.0 - Urinary tract infection, site not specified (2) Shocks, hemorrhagic Status: Resolved Resolution Date/Time: 04/20/19 @ 19:48 (3) GI bleed Status: Acute Qualifiers: GI bleed type/associated pathology: unspecified gastrointestinal hemorrhage type Qualified Codes: K92.2 - Gastrointestinal hemorrhage, unspecified (4) Acute blood loss anemia Status: Acute (5) Atrial fibrillation Status: Chronic Qualifiers: Atrial fibrillation type: chronic Qualified Codes: I48.2 - Chronic atrial fibrillation (6) Coronary artery disease Status: Chronic Qualifiers: Coronary Disease-Associated Artery/Lesion type: makah artery Nikolai vs. transplanted heart: makah heart Associated angina: without angina Qualified Codes: I25.10 - Atherosclerotic heart disease of makah coronary artery without angina pectoris (7) Abdominal aortic aneurysm (AAA) 3.0 cm to 5.0 cm in diameter in female Status: Chronic (8) Nausea and vomiting Status: Resolved Qualifiers: Vomiting Intractability: unspecified Resolution Date/Time: 04/20/19 @ 19:48 (9) Anxiety Status: Chronic (10) Leukocytosis Status: Acute Qualifiers: Leukocytosis type: leukemoid reaction Qualified Codes: D72.823 - Leukemoid reaction (11) Osteoarthritis Onset Date: 11/02/2014 Status: Chronic Qualifiers: Osteoarthritis location: unspecified site Osteoarthritis type: unspecified Qualified Codes: M19.90 - Unspecified osteoarthritis, unspecified site (12) Chronic obstructive airway disease Onset Date: 03/15/2015 Status: Chronic Qualifiers: COPD type: unspecified COPD Qualified Codes: J44.9 - Chronic obstructive pulmonary disease, unspecified (13) Thyroid dysfunction Status: Chronic (14) Hypoxia Status: Acute (15) CHF (congestive heart failure) Status: Acute Qualifiers: Heart failure type: unspecified Heart failure chronicity: unspecified Qualified Codes: I50.9 - Heart failure, unspecified (16) Physical deconditioning Status: Acute (17) Left pulmonary lesion Status: Chronic (18) DVT prophylaxis Status: Acute (19) DNR (do not resuscitate) Status: Acute (20) Transfusion of blood during current hospitalization Status: Acute (21) Wheezing Status: Acute (22) Elevated brain natriuretic peptide (BNP) level Status: Acute Clinical Quality Measures DVT/VTE Risk/Contraindication: Risk Factor Score Per Nursin RFS Level Per Nursing on Admit: 4+=Very High BARBER CRONIN DO Apr 22, 2019 10:04
--- NOTE | 2019-04-22 10:22 | Progress Note-Cardiology ---
Cardiology SOAP Progress Note Subjective: Feels anxious, weak and dizzy No cp or palp or syncope Mod exertional shortness of breath Objective: I&O/Vital Signs 04/21/19 04/22/19 04/22/19 04/22/19 23:05 00:05 00:30 01:01 Temp 98.4 Pulse 106 101 Resp 22 B/P (MAP) 126/60 (82) Pulse Ox 93 97 100 O2 Delivery Nasal Cannula Nasal Cannula Vapotherm O2 Flow Rate 4.00 2.00 40.00 FiO2 100 04/22/19 04/22/19 04/22/19 04/22/19 03:01 04:29 06:31 06:37 Temp 98.5 Pulse 109 Resp 20 B/P (MAP) 125/68 (87) Pulse Ox 96 98 98 O2 Delivery Nasal Cannula Nasal Cannula Nasal Cannula Nasal Cannula O2 Flow Rate 4.00 2.00 4.00 3.00 04/22/19 04/22/19 07:00 08:00 Temp 98.2 Pulse 115 120 Resp 20 B/P (MAP) 94/62 (73) Pulse Ox 93 O2 Delivery Nasal Cannula O2 Flow Rate 2.00 04/22/19 00:00 Intake Total 1990 ml Output Total 2200 ml Balance -210 ml Weight (Pounds): 191 Weight (Ounces): 0.0 Weight (Calculated Kilograms): 86.766497 Constitutional: AAO x 3, well-developed, well-nourished Respiratory: No accessory muscle use, No respiratory distress; rhonchi (scattered), other (SOB with conversation) Cardiovascular: irregularly irregular; No JVD; tachycardia, S1 and S2, systolic murmur Gastrointestional: tender, audible bowel sounds (hyperactive) Extremities: no lower extremity edema bilateral Neurologic/Psychiatric: grossly intact Skin: normal color, warm/dry Results/Procedures: Labs Laboratory Tests 04/21/19 16:01: Blood Gas Puncture Site LEFT RADIAL, Blood Gas Patient Temperature 98.6, Arterial Blood pH 7.44H, Arterial Blood Partial Pressure CO2 37, Arterial Blood Partial Pressure O2 69L, Arterial Blood HCO3 24, Arterial Blood Total CO2 25.2, Arterial Blood Oxygen Saturation 95, Arterial Blood Base Excess 0.3, Alejandro Test POSITIVE, Blood Gas Ventilator Setting NO, Blood Gas Inspired Oxygen 3 L 04/22/19 09:55: Glucometer 343H Microbiology 04/16/19 Blood Culture - Final, Complete No growth 04/16/19 MRSA Screen - Final, Complete MRSA not isolated 04/16/19 Urine Culture - Final, Complete Mixed Bacterial Tanika Morganella morganii Laboratory Tests 04/21/19 06:10 A/P: Assessment: GI bleed with hypovolemic shock (shock resolved). GI bleed due to a bleeding prepyloric ulcer (managed by the Surg Svce) Suspected UTI with possible sepsis (managed by the Med Svce) Severe bilateral ICA stenoses; s/p R CEA with Dr Valenzuela at [facility] in Dec 2017; s/p L carotid PCI at [facility] in January 2018 (Dr Valenzuela) Chronic dyspnea likely multi-factorial: COPD and diastolic dysfunction and phys ical deconditioning. Prolonged hospitalization post-CABG for physical deconditioning in 2014 Chronic atrial fib, first documented on an ECG of 09/27/17 at [facility], rate currently not well controlled Eliquis for stroke prophylaxis - hold for now H/o old lacunar infarction, including R internal capsule (based on w/u of Dec 2017 at [facility]) S/P right hip replacement Fall due to loss of balance (tripped over walker), no syncope, on 03/10/15 Acute on chronic diastolic CHF on 03/10/15 CAD - s/p [address] Maza at [facility] in : GREY to LAD, SVG to OM1 and SVG to PDA. Cardiac cath of Oct 15, 2017 (done following an MPI that showed apical ischemia) showed widely patent aortocoronary graft to the distal RCA, widely patent aortocoronary graft to OM system, widely patent left internal mammary artery graft to the distal LAD, normal to hyperdynamic LV systolic function with an ejection fraction of approx 70%, normal LVEDP, no evidence of thoracic aortic aneurysm or dissection, mod-sized infrarenal abdominal aortic aneurysm, mild prox stenosis of the left renal artery. For which she has been maintained on ASA and Plavix Peripheral angiogram with runoffs of March 2018: Moderate-sized, infrarenal, saccular abdominal aortic aneurysm. A 70% ostial and proximal stenoses of the renal arteries on both sides. 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 Proximal occlusion of the right superficial femoral artery which reconstitutes via collaterals in its distal portion. There is a 2- vessel runoff in the leg. Multiple up to 75% stenoses in the mid and distal portions of the left superficial femoral artery. For these findings she was referred to [facility] Echo of 03/05/18 showed LVEF 75-80%, grade 3 mcqueen dysfunction, PASP 45 mmHg, mod biatrial enlartgement, AoV sclerosis, and mild to mod TR COPD Tobaccoism, quit 2009 HTN H/o hypothyroidism that is followed by her fam phy S/P suprapubic catheter placement per Dr. James on 11-26-2017 Plan: * Complex management issue due to multiple comorbidities * Hold antiplatelet agents and anticoag until prepyloric ulcer heals. Resume these when source of bleed fully treated * Monitor labs from time to time * Changed Cardizem CD from 240 daily to 120 bid (in effort to improve tolerability) CHELLE GOETZ MD FACP FAC CCDS Apr 22, 2019 10:22
--- NOTE | 2019-04-22 10:26 | Progress Note ---
Subjective Time Seen by a Provider: 10:11 Subjective/Events-last exam Pt seen and examined, she states her breathing is worse than yesterday and she felt weak and dizzy. She denies any abdominal pain, has not seen black BM's. Review of Systems General: Fatigue, Malaise Pulmonary: Dyspnea; No Cough, No Pleuritic Chest Pain Cardiovascular: No: Chest Pain, Palpitations Gastrointestinal: No: Nausea, Vomiting, Abdominal Pain Neurological: Other (dizzy) Focused Exam Time of Focused Exam: 17:05 Objective Exam Vital Signs Date Time Temp Pulse Resp B/P (MAP) Pulse Ox O2 Delivery O2 Flow Rate FiO2 04/22/19 08:00 98.2 120 20 94/62 (73) 93 Nasal Cannula 2.00 04/22/19 07:00 115 04/22/19 06:37 Nasal Cannula 3.00 04/22/19 06:31 98 Nasal Cannula 4.00 04/22/19 04:29 98.5 109 20 125/68 (87) 98 Nasal Cannula 2.00 04/22/19 03:01 96 Nasal Cannula 4.00 04/22/19 01:01 101 04/22/19 00:30 100 Vapotherm 40.00 100 04/22/19 00:05 98.4 106 22 126/60 (82) 97 Nasal Cannula 2.00 04/21/19 23:05 93 Nasal Cannula 4.00 04/21/19 20:00 Room Air 04/21/19 19:18 98.3 117 18 142/89 (106) 94 Nasal Cannula 2.00 04/21/19 19:12 Nasal Cannula 4.00 04/21/19 19:12 94 Nasal Cannula 4.00 04/21/19 19:04 119 04/21/19 15:27 97.8 98 18 146/71 (96) 92 Nasal Cannula 2.00 04/21/19 15:17 94 Nasal Cannula 3.00 04/21/19 13:00 96 04/21/19 12:00 98.6 102 20 121/63 (82) 93 Nasal Cannula 2.00 I & O 04/22/19 07:00 Intake Total 2310 ml Output Total 6150 ml Balance -3840 ml Capillary Refill : Less Than 3 Seconds General Appearance: Chronically ill, Mild Distress Neck: Full Range of Motion, Supple Respiratory: Accessory Muscle Use, Crackles, Decreased Breath Sounds, Respiratory Distress (very mild with dyspnea while trying to talk, had to stop to catch breath), Wheezing Cardiovascular: Regular Rate, Rhythm, No Murmur Peripheral Pulses: 2+ Radial Pulses (R), 2+ Radial Pulses (L) Gastrointestinal: normal bowel sounds, non tender, soft, no organomegaly, no pulsatile mass Extremity: Normal Capillary Refill, Normal Inspection, Normal Range of Motion Neurologic/Psychiatric: Alert, Disoriented Skin: Warm/Dry, Pallor Results Lab Laboratory Tests 04/21/19 16:01: Blood Gas Puncture Site LEFT RADIAL, Blood Gas Patient Temperature 98.6, Arterial Blood pH 7.44H, Arterial Blood Partial Pressure CO2 37, Arterial Blood Partial Pressure O2 69L, Arterial Blood HCO3 24, Arterial Blood Total CO2 25.2, Arterial Blood Oxygen Saturation 95, Arterial Blood Base Excess 0.3, Alejandro Test POSITIVE, Blood Gas Ventilator Setting NO, Blood Gas Inspired Oxygen 3 L 04/22/19 09:55: Glucometer 343H Microbiology 04/16/19 Blood Culture - Final, Complete No growth 04/16/19 MRSA Screen - Final, Complete MRSA not isolated 04/16/19 Urine Culture - Final, Complete Mixed Bacterial Tanika Morganella morganii Assessment/Plan Assessment/Plan Assessment/Plan Anemia secondary to GI Bleed. Afib and has been on anticoagulation. Respiratory Distress Pt feels weak and dizzy, will order h/h. She is getting work-up from pulmonary doctor. If hemoglobin is down more than 1gm may need to discuss possible EGD if pt wants that done. Clinical Quality Measures DVT/VTE Risk/Contraindication: Risk Factor Score Per Nursin RFS Level Per Nursing on Admit: 4+=Very High MYRNA MCCOY DO Apr 22, 2019 10:26
[2019-04-22 10:35] LABS: BASOPHILS % (AUTO) 0 % (0-10); EOSINOPHILS % (AUTO) 0 % (0-10); HEMATOCRIT 27 % (35-52); HEMOGLOBIN 8.7 G/DL (11.5-16.0); LYMPHOCYTES # (AUTO) 0.5 X 10^3 (1.0-4.0); LYMPHOCYTES % (AUTO) 3 % (12-44); MEAN CORPUSCULAR HEMOGLOBIN 29 PG (25-34); MEAN CORPUSCULAR HGB CONC 32 G/DL (32-36); MEAN CORPUSCULAR VOLUME 91 FL (80-99); MEAN PLATELET VOLUME 10.1 FL (7.4-10.4); MONOCYTES # (AUTO) 0.6 X 10^3 (0.0-1.0); MONOCYTES % (AUTO) 4 % (0-12); NEUTROPHILS # (AUTO) 14.2 X 10^3 (1.8-7.8); NEUTROPHILS % (AUTO) 93 % (42-75); PLATELET COUNT 313 10^3/uL (130-400); RED CELL DISTRIBUTION WIDTH 17.7 % (10.0-14.5); WHITE BLOOD COUNT 15.3 10^3/uL (4.3-11.0)
--- NOTE | 2019-04-22 10:41 | NUR ---
CM/SS. Targeted discharge is tomorrow. CARE Assessment pending, last done 03/14/2015.
[2019-04-22 10:56] LABS: ALANINE AMINOTRANSFERASE 35 U/L (0-55); ALBUMIN 3.4 GM/DL (3.2-4.5); ALKALINE PHOSPHATASE 52 U/L (40-136); BILIRUBIN,TOTAL 0.3 MG/DL (0.1-1.0); BUN/CREATININE RATIO 22; CALCIUM 8.5 MG/DL (8.5-10.1); CARBON DIOXIDE 29 MMOL/L (21-32); CHLORIDE 96 MMOL/L (98-107); CREATININE SERUM 0.85 MG/DL (0.60-1.30); GFR ESTIMATED > 60; GLUCOSE 310 MG/DL (70-105); POTASSIUM 3.3 MMOL/L (3.6-5.0); SODIUM 136 MMOL/L (135-145); TOTAL PROTEIN 5.9 GM/DL (6.4-8.2)
--- NOTE | 2019-04-22 11:13 | Physical Therapy Progress Note ---
Therapy Progress Note Patient refused therapy x2 this morning. She states that she is waiting for her breakfast to get here (at 10:30 AM) and will not do anything until after she eats. She will not get out of bed and into a chair to eat or perform just bed exercises. Will try back this afternoon. AVILA FERRARO PT Apr 22, 2019 11:13
--- NOTE | 2019-04-22 11:49 | Physical Therapy Daily Note ---
PT Daily Note-Current Subjective Patient in bed pre tx, agrees to PT, has no complaints of pain. Will be getting patient to recliner, PT tech assisting. Appearance Patient in recliner post tx with nurse call, phone, tray, legs elevated and on pillow for heel pressure relief. Mental Status Patient Orientation: Person, Place, Situation Attachments: Oxygen, Askew Catheter Transfers Therapy Code Descriptions/Definitions Functional Hamilton Measure: 0=Not Assessed/NA 4=Minimal Assistance 1=Total Assistance 5=Supervision or Setup 2=Maximal Assistance 6=Modified Hamilton 3=Moderate Assistance 7=Complete Hamilton Therapy Quality Codes: 6 Independent with activity with or without an assistive device 5 Patient requires set up or clean up by helper. Patient completes activity by themselves 4 Supervision or touching assist (CGA). [place] provide cues , steadying assist 3 The helper provides less than half the effort to complete the activity 2 The helper provides more than half the effort to complete the activity 1 Dependent. The helper does all the effort to complete an activity 7 Patient refused to complete or attempt activity 9 The patient did not perform the activity before the current illness or injury 88 Not attempted due to Medical conditions or safety concerns Transfers (B, C, W/C) (FIM): 4 Scootin Rollin Supine to/from Sit: 4 Sit to/from Stand: 4 Bed to/from Chair: 4 Min assist for supine to sit, CGA for sit to stand and transfers. Cues for safety and positioning. Weight Bearing Right Lower Extremity: Right Full Weight Bearing Left Lower Extremity: Left Full Weight Bearing Gait Training Gait (FIM): 1 Distance: 8' Gait Level of Assist: 4 Gait Persons Needed: 1 Gait Assistive Device: FWW Patient ambulated from the bed to recliner, she did not ambulate far this treatment because she stated that her right knee has been buckling. Exercises Seated Therapy Exercises: Ankle pumps, Long arc quads Seated Reps: 15 Treatments bed mobility and transfers, ambulation, LE exercise Assessment Current Status: Fair Progress Patient had occasional abnormal movements, almost like tics. PT Short Term Goals Short Term Goals Transfers (B,C,W/C) (FIM): 5 PT Penitentiary Goals Penitentiary Goals PT Braille Operator Goals Time Frame: May 01, 2019 Transfers (B,C,W/C) (FIM): 5 Gait (FIM): 1 Gait distance (FIM): 1=up to 49 ft Distance: 45' Gait Level of Assist: 5 Gait Assistive Device: FWW PT Plan Problem List Problem List: Activity Tolerance, Functional Strength, Safety, Balance, Gait, Transfer, Bed Mobility, ROM Treatment/Plan Treatment Plan: Continue Plan of Care Treatment Plan: Bed Mobility, Education, Functional Activity Laisha, Functional Strength, Gait, Safety, Therapeutic Exercise, Transfers Treatment Duration: May 01, 2019 Frequency: 6 times per week Estimated Hrs Per Day: .25 hour per day Patient and/or Family Agrees t: Yes Safety Risks/Education Patient Education: Gait Training, Transfer Techniques, Correct Positioning, Safety Issues Teaching Recipient: Patient Teaching Methods: Demonstration, Discussion Response to Teaching: Reinforcement Needed Time/GCodes Time In: 1130 Time Out: 1144 Total Billed Treatment Time: 14 Total Billed Treatment 1 visit FA Cesar' AVLIA FERRARO PT Apr 22, 2019 11:49
[2019-04-22] MEDS: ATORVASTATIN 40 MG (LIPITOR) TABLET PO SCH (22:39)
[2019-04-22] MEDS: traZODone 50 MG (DESYREL) TAB PO SCH (22:39)
[2019-04-22] MEDS: LORazepam 0.5 MG (ATIVAN) TABLET PO SCH (22:39)
[2019-04-22] MEDS: DILTIAZEM 120 MG (CARDIZEM CD) CAP PO SCH (22:40)
[2019-04-23] MEDS: methylPREDNISolone 40 MG/ML (Solu-MEDROL) VIAL IV SCH ×3 (00:55→11:04)
[2019-04-23] MEDS: RT-ALBUTEROL/IPRATROPIUM 3 ML (DUONEB) VIAL INH SCH ×3 (01:52→10:45)
[2019-04-23 03:53] VITALS: BP 104/54
[2019-04-23 06:11] LABS: BASOPHILS % (AUTO) 0 % (0-10); EOSINOPHILS % (AUTO) 0 % (0-10); HEMATOCRIT 26 % (35-52); HEMOGLOBIN 8.2 G/DL (11.5-16.0); LYMPHOCYTES # (AUTO) 0.7 X 10^3 (1.0-4.0); LYMPHOCYTES % (AUTO) 5 % (12-44); MEAN CORPUSCULAR HEMOGLOBIN 29 PG (25-34); MEAN CORPUSCULAR HGB CONC 32 G/DL (32-36); MEAN CORPUSCULAR VOLUME 91 FL (80-99); MEAN PLATELET VOLUME 9.9 FL (7.4-10.4); MONOCYTES # (AUTO) 0.5 X 10^3 (0.0-1.0); MONOCYTES % (AUTO) 3 % (0-12); NEUTROPHILS # (AUTO) 14.3 X 10^3 (1.8-7.8); NEUTROPHILS % (AUTO) 92 % (42-75); PLATELET COUNT 328 10^3/uL (130-400); RED CELL DISTRIBUTION WIDTH 17.8 % (10.0-14.5); WHITE BLOOD COUNT 15.6 10^3/uL (4.3-11.0)
[2019-04-23] MEDS: SUCRALFATE 1 GM (CARAFATE) TAB PO SCH ×2 (06:47→11:04)
[2019-04-23 06:52] LABS: ALANINE AMINOTRANSFERASE 30 U/L (0-55); ALBUMIN 3.2 GM/DL (3.2-4.5); ALKALINE PHOSPHATASE 46 U/L (40-136); BILIRUBIN,TOTAL 0.3 MG/DL (0.1-1.0); BUN/CREATININE RATIO 30; CALCIUM 8.8 MG/DL (8.5-10.1); CARBON DIOXIDE 29 MMOL/L (21-32); CHLORIDE 99 MMOL/L (98-107); GFR ESTIMATED > 60; GLUCOSE 305 MG/DL (70-105); POTASSIUM 3.8 MMOL/L (3.6-5.0); SODIUM 139 MMOL/L (135-145); TOTAL PROTEIN 5.4 GM/DL (6.4-8.2)
[2019-04-23 08:00] VITALS: BP 130/73
[2019-04-23] MEDS: RT-ADVAIR HFA 115/21 MCG PER PUFF IH SCH (08:10)
[2019-04-23] MEDS: PANTOPRAZOLE 40 MG (PROTONIX) VIAL IV SCH (08:17)
[2019-04-23] MEDS: SERTRALINE 50 MG (ZOLOFT) TABLET PO SCH (08:18)
[2019-04-23] MEDS: GABAPENTIN 400 MG (NEURONTIN) CAP PO SCH (08:18)
[2019-04-23] MEDS: CEFEPIME 2,000 MG/SWFI 20 ML IV PUSH IV SCH ×2 (08:18)
[2019-04-23] MEDS: buPROPion SR 150 MG (WELLBUTRIN SR) TAB PO SCH (08:18)
[2019-04-23] MEDS: DILTIAZEM 120 MG (CARDIZEM CD) CAP PO SCH (08:18)
[2019-04-23] MEDS ORDERED: DILT120C94 PO ×2 (09:25)
--- NOTE | 2019-04-23 09:28 | Progress Note-Cardiology ---
Cardiology SOAP Progress Note Subjective: Sitting up in bed eating morning meal. No c/o CP or palpitations. Feels SOB is at baseline. States she feels better today. Objective: I&O/Vital Signs 04/23/19 04/23/19 04/23/19 04/23/19 03:53 07:00 08:00 08:00 Temp 98.3 97.3 Pulse 101 89 83 Resp 18 18 B/P (MAP) 104/54 (71) 130/73 (92) Pulse Ox 94 94 94 O2 Delivery Nasal Cannula Nasal Cannula Nasal Cannula O2 Flow Rate 2.00 2.00 2.00 04/23/19 04/23/19 04/23/19 04/23/19 08:11 08:12 10:49 11:51 Temp 98.1 Pulse 102 Resp 20 B/P (MAP) 136/62 (86) Pulse Ox 91 93 93 O2 Delivery Nasal Cannula Nasal Cannula Nasal Cannula Nasal Cannula O2 Flow Rate 2.00 2.00 2.00 2.00 04/23/19 13:20 Pulse 102 Resp 20 B/P (MAP) 136/62 Pulse Ox 93 O2 Delivery Nasal Cannula O2 Flow Rate 2.00 04/23/19 00:00 Intake Total 4980 ml Output Total 2150 ml Balance 2830 ml Weight (Pounds): 192 Weight (Ounces): 7.0 Weight (Calculated Kilograms): 87.271749 Constitutional: AAO x 3, well-developed, well-nourished Respiratory: No accessory muscle use, No respiratory distress; rhonchi (scattered), other (SOB with conversation) Cardiovascular: irregularly irregular; No JVD; tachycardia, S1 and S2, systolic murmur Gastrointestional: tender, audible bowel sounds (hyperactive) Extremities: no lower extremity edema bilateral Neurologic/Psychiatric: grossly intact Skin: normal color, warm/dry Results/Procedures: Labs Laboratory Tests 04/23/19 05:35: Sodium Level 139, Potassium Level 3.8, Chloride Level 99, Carbon Dioxide Level 29, Anion Gap 11, Blood Urea Nitrogen 24H, Creatinine 0.80, Estimat Glomerular Filtration Rate > 60, BUN/Creatinine Ratio 30, Glucose Level 305H, Calcium Level 8.8, Corrected Calcium 9.4, Total Bilirubin 0.3, Aspartate Amino Transf (AST/SGOT) 13, Alanine Aminotransferase (ALT/SGPT) 30, Alkaline Phosphatase 46, Total Protein 5.4L, Albumin 3.2 04/23/19 05:36: White Blood Count 15.6H, Red Blood Count 2.83L, Hemoglobin 8.2L, Hematocrit 26L, Mean Corpuscular Volume 91, Mean Corpuscular Hemoglobin 29, Mean Corpuscular Hemoglobin Concent 32, Red Cell Distribution Width 17.8H, Platelet Count 328, Mean Platelet Volume 9.9, Neutrophils (%) (Auto) 92H, Lymphocytes (%) (Auto) 5L, Monocytes (%) (Auto) 3, Eosinophils (%) (Auto) 0, Basophils (%) (Auto) 0, Neutrophils # (Auto) 14.3H, Lymphocytes # (Auto) 0.7L, Monocytes # (Auto) 0.5, Eosinophils # (Auto) 0.0, Basophils # (Auto) 0.0 Microbiology 04/16/19 Blood Culture - Final, Complete No growth 04/16/19 MRSA Screen - Final, Complete MRSA not isolated 04/16/19 Urine Culture - Final, Complete Mixed Bacterial Tanika Morganella morganii A/P: Assessment: GI bleed with hypovolemic shock (shock resolved). GI bleed due to a bleeding prepyloric ulcer (managed by the Surg Svce) Suspected UTI with possible sepsis (managed by the Med Svce) Severe bilateral ICA stenoses; s/p R CEA with Dr Valenzuela at [facility] in Dec 2017; s/p L carotid PCI at [facility] in January 2018 (Dr Valenzuela) Chronic dyspnea likely multi-factorial: COPD and diastolic dysfunction and physical deconditioning. Prolonged hospitalization post-CABG for physical deconditioning in 2014 Chronic atrial fib, first documented on an ECG of 09/27/17 at [facility], rate currently fairly well controlled Eliquis for stroke prophylaxis - hold for now H/o old lacunar infarction, including R internal capsule (based on w/u of Dec 2017 at [facility]) S/P right hip replacement Fall due to loss of balance (tripped over walker), no syncope, on 03/10/15 Acute on chronic diastolic CHF on 03/10/15 CAD - s/p [address] Maza at [facility] in : GREY to LAD, SVG to OM1 and SVG to PDA. Cardiac cath of Oct 15, 2017 (done following an MPI that showed apical ischemia) showed widely patent aortocoronary graft to the distal RCA, widely patent aortocoronary graft to OM system, widely patent left internal mammary artery graft to the distal LAD, normal to hyperdynamic LV systolic function with an ejection fraction of approx 70%, normal LVEDP, no evidence of thoracic aortic aneurysm or dissection, mod-sized infrarenal abdominal aortic aneurysm, mild prox stenosis of the left renal artery. For which she has been maintained on ASA and Plavix Peripheral angiogram with runoffs of March 2018: Moderate-sized, infrarenal, saccular abdominal aortic aneurysm. A 70% ostial and proximal stenoses of the renal arteries on both sides. 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 Proximal occlusion of the right superficial femoral artery which reconstitutes via collaterals in its distal portion. There is a 2- vessel runoff in the leg. Multiple up to 75% stenoses in the mid and distal portions of the left superficial femoral artery. For these findings she was referred to [facility] Echo of 03/05/18 showed LVEF 75-80%, grade 3 mcqueen dysfunction, PASP 45 mmHg, mod biatrial enlartgement, AoV sclerosis, and mild to mod TR COPD Tobaccoism, quit 2009 HTN H/o hypothyroidism that is followed by her fam phy S/P suprapubic catheter placement per Dr. James on 11-26-2017 Plan: * Complex management issue due to multiple comorbidities * Hold antiplatelet agents and anticoag until prepyloric ulcer heals. Resume these when source of bleed fully treated * OK to discharge back to [facility] from a cardiac stand point * Continue cardiac medications as ordered * Out pt f/u in 2-3 weeks Physician Assessment Physician Assessment Feels a bit stronger today. No cp. No shortness of breath at rest. No palp. No syncope Lungs: diminished air entry at the bases Cor: irreg Ext: no c/c/e A&R * As documented in our note above that I updated and as noted below * Still not suitable for OAC/antiplatelet due to reasons noted above and persistent anemia due to slow GI blood loss * Close outpt f/u advised SATHISH ABAD Apr 23, 2019 09:28 CHELLE GOETZ MD FACP FAC CCDS Apr 23, 2019 14:04
[2019-04-23] MEDS ORDERED: PRED10TA22 PO ×2 (09:44)
--- NOTE | 2019-04-23 09:45 | Discharge Inst-Skilled Nursing ---
Discharge Inst-Skilled NF Patient Instructions Patient Problems: GI bleed AF Anemia COPD Chronic debility Goal: Return to independent ADL's Consult/Follow Up/Orders Skilled NF Admit to: [facility] [place] Certification (SNF) I certify that SNF services are required to be given on an inpatient basis because of the above named patient's need for half-way care on a continuing basis for the conditions(s) for which he/she was receiving inpatient hospital services prior to his/her transfer to the SNF. [facility] Facility Order: Nursing Services, Photographic Equipment Assembler-Evaluate & Treat, Physical Therapy-Evaluate & Treat Oxygen Delivery Method: Nasal Cannula Daily Activity as Tolerated: Yes New & Resume Previous Orders Susy Maguire Apr 23, 2019 09:44 Pneu Vac Indicated: Yes SUSY MAGUIRE DO Apr 23, 2019 09:45
--- NOTE | 2019-04-23 09:47 | Discharge Summary-Hospitalist ---
Diagnosis/Chief Complaint Date of Admission April 16, 2019 at 17:00 Date of Discharge Discharge Date: Apr 23, 2019 Discharge Diagnosis (1) Urinary tract infection associated with indwelling urethralcatheter Status: Acute (2) Shocks, hemorrhagic Status: Resolved (3) GI bleed Status: Acute (4) Acute blood loss anemia Status: Acute (5) Atrial fibrillation Status: Chronic (6) Coronary artery disease Status: Chronic (7) Abdominal aortic aneurysm (AAA) 3.0 cm to 5.0 cm in diameter in female Status: Chronic (8) Nausea and vomiting Status: Resolved (9) Anxiety Status: Chronic (10) Leukocytosis Status: Acute (11) Osteoarthritis Onset Date: 11/02/2014 Status: Chronic (12) Chronic obstructive airway disease Onset Date: 03/15/2015 Status: Chronic (13) Thyroid dysfunction Status: Chronic (14) Hypoxia Status: Acute (15) CHF (congestive heart failure) Status: Acute (16) Physical deconditioning Status: Acute (17) Left pulmonary lesion Status: Chronic (18) DVT prophylaxis Status: Acute (19) DNR (do not resuscitate) Status: Acute (20) Transfusion of blood during current hospitalization Status: Acute (21) Wheezing Status: Acute (22) Elevated brain natriuretic peptide (BNP) level Status: Acute Discharge Summary Discharge Physical Exam Allergies: Coded Allergies: Sulfa (Sulfonamide Antibiotics) (Verified Allergy, Unknown, 04/16/19) diphenhydramine HCl (Verified Allergy, Unknown, 04/16/19) hydrochlorothiazide (Unverified Allergy, Unknown, 04/16/19) varenicline tartrate (Verified Allergy, Unknown, 04/16/19) Vitals & I&Os Vital Signs Date Time Temp Pulse Resp B/P (MAP) Pulse Ox O2 Delivery O2 Flow Rate FiO2 04/23/19 13:20 102 20 136/62 93 Nasal Cannula 2.00 04/23/19 11:51 98.1 04/22/19 20:00 100 General Appearance: No Apparent Distress, WD/WN, Chronically ill Respiratory: Chest Non Tender, Lungs Clear, Normal Breath Sounds, No Accessory Muscle Use, No Respiratory Distress Cardiovascular: Regular Rate, Rhythm, No Edema, No Gallop, No JVD, No Murmur, Normal Peripheral Pulses Neurologic/Psychiatric: Alert, Oriented x3, No Motor/Sensory Deficits, Normal Mood/Affect Hospital Course Was the Problem List Reviewed?: Yes Hospital course: patient had a lengthy course. Patient was admitted for GIB and required blood transfusions. Cardiology was consulted along with surgery and endoscopy performed. Patient became more stable but overall declined condition prompted Palliative care and DNR was secured. Wheezing noted and patient was already on steroids so Dr Alfonso was consulted and BNP was found to be elevated and wheezing resolved with Lasix IV. Overall patient was stable and ready for DC to [place] but she really was deemed a hospice candidate and she will attempt skilled care at [facility] in meantime. Labs (last 24 hrs) Laboratory Tests 04/23/19 05:35: Sodium Level 139, Potassium Level 3.8, Chloride Level 99, Carbon Dioxide Level 29, Anion Gap 11, Blood Urea Nitrogen 24H, Creatinine 0.80, Estimat Glomerular Filtration Rate > 60, BUN/Creatinine Ratio 30, Glucose Level 305H, Calcium Level 8.8, Corrected Calcium 9.4, Total Bilirubin 0.3, Aspartate Amino Transf (AST/SGOT) 13, Alanine Aminotransferase (ALT/SGPT) 30, Alkaline Phosphatase 46, Total Protein 5.4L, Albumin 3.2 04/23/19 05:36: White Blood Count 15.6H, Red Blood Count 2.83L, Hemoglobin 8.2L, Hematocrit 26L, Mean Corpuscular Volume 91, Mean Corpuscular Hemoglobin 29, Mean Corpuscular Hemoglobin Concent 32, Red Cell Distribution Width 17.8H, Platelet Count 328, Mean Platelet Volume 9.9, Neutrophils (%) (Auto) 92H, Lymphocytes (%) (Auto) 5L, Monocytes (%) (Auto) 3, Eosinophils (%) (Auto) 0, Basophils (%) (Auto) 0, Neutrophils # (Auto) 14.3H, Lymphocytes # (Auto) 0.7L, Monocytes # (Auto) 0.5, Eosinophils # (Auto) 0.0, Basophils # (Auto) 0.0 Microbiology 04/16/19 Blood Culture - Final, Complete No growth 04/16/19 MRSA Screen - Final, Complete MRSA not isolated 04/16/19 Urine Culture - Final, Complete Mixed Bacterial Tanika Morganella morganii Patient resulted labs reviewed. Pending Labs Discussion & Recommendations Discharge Planning: <30 minutes discharge planning Discharge Home Medications: Active Scripts Active Prednisone 10 Mg Tab.ds.pk 10 Mg PO DAILY Take 6 tabs(60mg)daily,decrease by 1 tab(10MG)daily. Diltiazem 24Hr Cd (Diltiazem HCl) 120 Mg Cap.er.24h 120 Mg PO BID Reported Oxybutynin Chloride ER (Oxybutynin Chloride) 10 Mg Tab.er.24 10 Mg PO DAILY Sertraline HCl 50 Mg Tablet 50 Mg PO DAILY Vitamin C (Ascorbate Calcium) 500 Mg Tablet 500 Mg PO DAILY [Flavoxate 100MG] 100 Mg PO TID PRN Myrbetriq (Mirabegron) 25 Mg Tab.er.24h 25 Mg PO DAILY Refresh Tears (Carboxymethylcellulose Sodium) 15 Ml Drops 1 Drop OD UD PRN Prednisolone Acet 1% Eye Drop (Prednisolone Acetate/Pf) 5 Ml Drops.susp 1 Drop OD QID Robitussin Cough-Chest Dm Liq (Guaifenesin/Dextromethorphan) 237 Ml Liquid 5 Ml PO Q4H PRN Maalox Advanced Suspension (Mag Hydrox/Aluminum Hyd/Simeth) 355 Ml Oral.susp 30 Ml PO Q4H PRN Pantoprazole Sodium 40 Mg Tablet.dr 40 Mg PO DAILY Tramadol HCl 50 Mg Tablet 50 Mg PO TID Trazodone HCl 50 Mg Tablet 25 Mg PO HS TAKES 1/2 (50MG) TABLET Lorazepam 0.5 Mg Tablet 0.5 Mg PO HS Acetaminophen 325 Mg Tablet 650 Mg PO Q4H PRN TAKES 2 (325MG) TABLETS Flomax (Tamsulosin HCl) 0.4 Mg Cap 0.4 Mg PO DAILY Lipitor (Atorvastatin Calcium) 40 Mg Tablet 40 Mg PO HS Proair Hfa (Albuterol Sulfate) 8.5 Gm Hfa.aer.ad 1 Puff IH Q6H PRN Potassium Chloride 20 Meq Tab.er.prt 40 Meq PO Q48H TAKES 2 (20MEQ) TABLETS EVERY OTHER DAY WITH FUROSEMIDE Ondansetron HCl 4 Mg Tablet 4 Mg PO Q6H PRN Furosemide 20 Mg Tablet 20 Mg PO Q48H Gabapentin 400 Mg Capsule 400 Mg PO TID Symbicort 160-4.5 Mcg Inhaler (Budesonide/Formoterol Fumarate) 10.2 Gm Hfa.aer.ad 2 Puff IH BID Bupropion Xl (Bupropion HCl) 300 Mg Tab.er.24h 300 Mg PO HS Instructions to patient/family Please see electronic discharge instructions given to patient. Clinical Quality Measures DVT/VTE Risk/Contraindication: Risk Factor Score Per Nursin RFS Level Per Nursing on Admit: 4+=Very High Problem Qualifiers (1) Urinary tract infection associated with indwelling urethralcatheter: Encounter type: subsequent encounter Qualified Codes: T83.511D - Infection and inflammatory reaction due to indwelling urethral catheter, subsequent encounter; N39.0 - Urinary tract infection, site not specified (2) GI bleed: GI bleed type/associated pathology: unspecified gastrointestinal hemorrhage type Qualified Codes: K92.2 - Gastrointestinal hemorrhage, unspecified (3) Atrial fibrillation: Atrial fibrillation type: chronic Qualified Codes: I48.2 - Chronic atrial fibrillation (4) Coronary artery disease: Coronary Disease-Associated Artery/Lesion type: [place] artery [place] vs. transplanted heart: [place] heart Associated angina: without angina Qualified Codes: I25.10 - Atherosclerotic heart disease of [place] coronary artery without angina pectoris (5) Nausea and vomiting: Vomiting Intractability: unspecified (6) Leukocytosis: Leukocytosis type: leukemoid reaction Qualified Codes: D72.823 - Leukemoid reaction (7) Osteoarthritis: Osteoarthritis location: unspecified site Osteoarthritis type: unspecified Qualified Codes: M19.90 - Unspecified osteoarthritis, unspecified site (8) Chronic obstructive airway disease: COPD type: unspecified COPD Qualified Codes: J44.9 - Chronic obstructive pulmonary disease, unspecified (9) CHF (congestive heart failure): Heart failure type: unspecified Heart failure chronicity: unspecified Qualified Codes: I50.9 - Heart failure, unspecified BARBER CRONIN DO Apr 23, 2019 09:47
[2019-04-23] MEDS: LORazepam 0.5 MG (ATIVAN) TABLET PO PRN (11:04)
--- NOTE | 2019-04-23 11:14 | Progress Note ---
Subjective Time Seen by a Provider: 10:48 Subjective/Events-last exam Pt seen and examined, her only complaint is of anxiety. She is worried about bleeding and her breathing. Denies abdominal pain. Review of Systems General: No Chills, No Night Sweats Pulmonary: Dyspnea; No Cough Cardiovascular: No: Chest Pain, Palpitations Gastrointestinal: No: Nausea, Vomiting, Abdominal Pain Focused Exam Time of Focused Exam: 17:05 Objective Exam Vital Signs Date Time Temp Pulse Resp B/P (MAP) Pulse Ox O2 Delivery O2 Flow Rate FiO2 04/23/19 10:49 93 Nasal Cannula 2.00 04/23/19 08:12 Nasal Cannula 2.00 04/23/19 08:11 91 Nasal Cannula 2.00 04/23/19 08:00 97.3 83 18 130/73 (92) 94 Nasal Cannula 2.00 04/23/19 08:00 94 Nasal Cannula 2.00 04/23/19 07:00 89 04/23/19 03:53 98.3 101 18 104/54 (71) 94 Nasal Cannula 2.00 04/23/19 01:52 94 Nasal Cannula 4.00 04/23/19 01:00 120 04/22/19 23:12 97.8 90 18 126/57 (80) 96 Nasal Cannula 2.00 04/22/19 22:09 92 Nasal Cannula 4.00 04/22/19 20:00 94 Nasal Cannula 2.00 100 04/22/19 19:21 98.9 114 20 132/68 (89) 95 Nasal Cannula 2.00 04/22/19 19:00 115 04/22/19 18:55 Nasal Cannula 4.00 04/22/19 18:50 94 Nasal Cannula 4.00 04/22/19 16:43 97.8 101 20 120/58 (78) 95 Nasal Cannula 2.00 04/22/19 15:07 97 Nasal Cannula 4.00 04/22/19 13:00 110 04/22/19 12:00 99.1 130 20 124/60 (81) 94 Nasal Cannula 2.00 I & O 04/23/19 06:59 Intake Total 6180 ml Output Total 3050 ml Balance 3130 ml Capillary Refill : Less Than 3 Seconds General Appearance: No Apparent Distress, Chronically ill Neck: Full Range of Motion, Supple Respiratory: Normal Breath Sounds, Accessory Muscle Use, Respiratory Distress (very mild, better than yesterday) Cardiovascular: Regular Rate, Rhythm, No Murmur Peripheral Pulses: 2+ Radial Pulses (R), 2+ Radial Pulses (L) Gastrointestinal: normal bowel sounds, non tender, soft, no organomegaly Neurologic/Psychiatric: Alert, Oriented x3 Skin: Warm/Dry, Pallor Results Lab Laboratory Tests 04/22/19 13:18: Lab Scanned Report Transfusion Reaction Form 04/23/19 05:35: Sodium Level 139, Potassium Level 3.8, Chloride Level 99, Carbon Dioxide Level 29, Anion Gap 11, Blood Urea Nitrogen 24H, Creatinine 0.80, Estimat Glomerular Filtration Rate > 60, BUN/Creatinine Ratio 30, Glucose Level 305H, Calcium Level 8.8, Corrected Calcium 9.4, Total Bilirubin 0.3, Aspartate Amino Transf (AST/SGOT) 13, Alanine Aminotransferase (ALT/SGPT) 30, Alkaline Phosphatase 46, Total Protein 5.4L, Albumin 3.2 04/23/19 05:36: White Blood Count 15.6H, Red Blood Count 2.83L, Hemoglobin 8.2L, Hematocrit 26L, Mean Corpuscular Volume 91, Mean Corpuscular Hemoglobin 29, Mean Corpuscular Hemoglobin Concent 32, Red Cell Distribution Width 17.8H, Platelet Count 328, Mean Platelet Volume 9.9, Neutrophils (%) (Auto) 92H, Lymphocytes (%) (Auto) 5L, Monocytes (%) (Auto) 3, Eosinophils (%) (Auto) 0, Basophils (%) (Auto) 0, Neutrophils # (Auto) 14.3H, Lymphocytes # (Auto) 0.7L, Monocytes # (Auto) 0.5, Eosinophils # (Auto) 0.0, Basophils # (Auto) 0.0 Microbiology 04/16/19 Blood Culture - Final, Complete No growth 04/16/19 MRSA Screen - Final, Complete MRSA not isolated 04/16/19 Urine Culture - Final, Complete Mixed Bacterial Tanika Morganella morganii Assessment/Plan Assessment/Plan Assessment/Plan Anxiety Anemia secondary to GI Bleed -stable no bleeding at this time. Afib and has been on anticoagulation. Respiratory Distress -improving Pt h/h is stable. Her main complaint is anxiety. She can be discharged from surgical standpoint once ok with Pulmonary. Clinical Quality Measures DVT/VTE Risk/Contraindication: Risk Factor Score Per Nursin RFS Level Per Nursing on Admit: 4+=Very High MYRNA MCCOY DO Apr 23, 2019 11:14
--- NOTE | 2019-04-23 11:15 | NUR ---
Important Message from Medicare presented, reviewed, signed and placed in patient chart. Patient voiced no intention to appeal and deny any needs or further questions at this time.
--- NOTE | 2019-04-23 11:24 | NUR ---
CALLED REPORT TO EMI ODELL [facility]
[2019-04-23 11:51] VITALS: BP 136/62
--- NOTE | 2019-04-23 12:45 | NUR ---
CM/SS. Patient discharged to return to [facility] under Medicare skilled status via SNF transport scheduled for 1300. She has her assisted living apartment there and desires to return to that status as soon as able. CARE Assessment completed with patient, processed with [facility]. Faxed orders and CARE to [facility], prepared packet to accompany patient. Patient's family members are in [place] at this time. Discharge arrangements were coordinated with Unit RN.
--- NOTE | 2019-04-23 13:05 | NUR ---
Pt said she is concerned about being discharged too soon: States she fears her blood pressure dropping again, necessitating a return to the hospital. Offered prayer for verbalized anxieties and contacted [facility] to relay her request for a change of clothes and briefs when transportation arrives.
[2019-04-23 13:20] VITALS: BP 136/62
== END 2019-04-23 13:20 | DRG 377 ==
LOC: EDUNIT# 15:09 → ER 15:10 → ICU 17:00 → 4TH 04-17 16:10 → UNDODISIN 04-20 17:53 → 4TH 04-21 13:27
PROVIDERS: ADMIT Family Medicine; ATTEND Family Medicine
PROC: 0DB78ZX Excision of Stomach, Pylorus, Via Natural or Artificial Opening Endoscopic, Diagnostic (ICD-10-PCS; principal; 2019-04-17 09:25)
PROC: 0DJD8ZZ Inspection of Lower Intestinal Tract, Via Natural or Artificial Opening Endoscopic (ICD-10-PCS; 2019-04-20)
DX: K25.4 Chronic or unspecified gastric ulcer with hemorrhage (principal); R57.1 Hypovolemic shock; D62 Acute posthemorrhagic anemia; T83.510A Infection and inflammatory reaction due to cystostomy catheter, initial encounter; A41.9 Sepsis, unspecified organism; N39.0 Urinary tract infection, site not specified; I11.0 Hypertensive heart disease with heart failure; I50.32 Chronic diastolic (congestive) heart failure; Z66 Do not resuscitate; J44.1 Chronic obstructive pulmonary disease with (acute) exacerbation; I48.92 Unspecified atrial flutter; K42.0 Umbilical hernia with obstruction, without gangrene; E87.70 Fluid overload, unspecified; K64.8 Other hemorrhoids; K57.30 Diverticulosis of large intestine without perforation or abscess without bleeding; I48.2 Chronic atrial fibrillation; I70.1 Atherosclerosis of renal artery; I71.4 Abdominal aortic aneurysm, without rupture; E78.5 Hyperlipidemia, unspecified; I25.10 Atherosclerotic heart disease of native coronary artery without angina pectoris; E03.9 Hypothyroidism, unspecified; E11.9 Type 2 diabetes mellitus without complications; M19.91 Primary osteoarthritis, unspecified site; F41.0 Panic disorder [episodic paroxysmal anxiety]; F32.9 Major depressive disorder, single episode, unspecified; Z79.01 Long term (current) use of anticoagulants; Z79.02 Long term (current) use of antithrombotics/antiplatelets; Z79.84 Long term (current) use of oral hypoglycemic drugs; Z95.1 Presence of aortocoronary bypass graft; Z87.891 Personal history of nicotine dependence
CPT/HCPCS: 36415; 36430; 36600; 71045; 74177; 80048; 80053; 81000; 82805; 82962; 83605; 83735; 83880; 84100; 84484; 85007; 85014; 85018; 85025; 85027; 85045; 85610; 85730; 86850; 86900; 86901; 86920; 87040; 87077; 87081; 87088; 87186; 88305; 93005; 93306; 94640; 94760; 96361; 96374; 96375; 99291

== ENCOUNTER 2019-04-24 17:26 | Emergency (ER) | payer MEDICARE, MEDICAID ==
[~2019-04-24] VITALS: Ht 157.5 cm; Wt 74.8 kg
[~2019-04-24 17:26] MED LIST changes: +ASCO-262 PO; +CARB15DR OD; +DILT120C94 PO; +FLAVOXATE 100 MG PO; +GUAI237L82 PO; +IBUP-30 PO; +MAG355OR16 PO; +MIRA25TA PO; +OXYB10TA PO; +PANT40TA3 PO; +PRED10TA22 PO; +PRED5DRO24 OD; +SERT50TA9 PO
--- OUTSIDE RECORDS SUMMARY | 2019-04-24 17:45 | XMS REPORT | Clinical Summary ---
Author Author [facility] Organization [facility] Address Unknown Phone Unavailable Care Team Providers Care Multimedia Instructional Designer Name Role Phone Itz Chacon MD PCP Source Comments Some departments are not documenting in the electronic medical record. If you d o not see the information that you expected, contact Release of Information in [facility] [employer] Information Management department at [phone] for further assistan ce in locating additional records.[facility] Allergies Comments Active Allergy Reactions Severity Noted [...] estradiol (ESTRACE) 0.01 Insert or 42.5 g 11 03/20/201 % (0.1 mg/g) vaginal Apply to [...] Overview: Added automatically from request for surgery [id number] Mixed stress and urge urinary incontinence 03/20/2017 Overview: Longstanding hx of JOE (UUI>MAXWELL), OAB, ISD, urinary retention who is s/p PVS (Solyx) by Dr. Andrews on 11/27/16; Macroplastique injection 02/12/17. Trailed [facility] without success. 03/20/17 - SCIENTIFIC ILLUSTRATOR eval with Dr. Carlisle. Still with JOE [...] Taken Vital Sign Reading 09/27/2017 10:47 AM CONTROL TOWER OPERATOR Blood Pressure 178/94 09/27/2017 10:47 AM CONTROL TOWER OPERATOR Pulse 77 09/27/2017 10:47 AM CONTROL TOWER OPERATOR Temperature 36.6 C (97.9 F) - Respiratory Rate - 09/27/2017 10:47 AM CONTROL TOWER OPERATOR Oxygen Saturation 96% - Inhaled Oxygen - Concentration 09/27/2017 10:47 AM CONTROL TOWER OPERATOR Weight 77.2 kg (170 lb 3.2 oz) 09/27/2017 10:47 AM CONTROL TOWER OPERATOR Height 157.5 cm (5' 2") 09/27/2017 10:47 AM CONTROL TOWER OPERATOR Body Mass Index 31.13 Plan of Treatment [...] Medicaid [employer] [place] [employer] xxxxxxxxxxx 2010- [facility] Present HEALTH Advance Directives Patient has advance care planning documents on file. For more information, blanka talamantes contact: [facility] [address] [place] [address]
[2019-04-24] MEDS ORDERED: ACETAMINOPHEN 500 MG TAB (TYLENOL) PO ONE (18:15)
--- NOTE | 2019-04-24 18:35 | ED Upper Extremity ---
General Chief Complaint: Upper Extremity Stated Complaint: R SHOULDER PAIN Nursing Triage Note: PT PUSHED UP FROM BED. PT VERBALIZED RT SHOULDER PAIN. Nursing Sepsis Screen: No Definite Risk Source: patient Exam Limitations: no limitations History of Present Illness Date Seen by Provider: Apr 24, 2019 Time Seen by Provider: 18:14 Initial Comments 83-year-old female who presents to the emergency room with complaints of right shoulder pain after pushing herself up in bed [facility] the [facility]. She is accompanied by her son and [id number] on arrival to the emergency room. She denies taking her prescribed hydrocodone for pain. Pain/Injury Location: right arm Modifying Factors: Worse With Movement Allergies and Home Medications Allergies Coded Allergies: Sulfa (Sulfonamide Antibiotics) (Verified Allergy, Unknown, 04/16/19) diphenhydramine HCl (Verified Allergy, Unknown, 04/16/19) hydrochlorothiazide (Unverified Allergy, Unknown, 04/16/19) varenicline tartrate (Verified Allergy, Unknown, 04/16/19) Home Medications Acetaminophen 325 Mg Tablet, 650 MG PO Q4H PRN for PAIN-MILD, (Reported) TAKES 2 (325MG) TABLETS Albuterol Sulfate 8.5 Gm Hfa.aer.ad, 1 PUFF IH Q6H PRN for SHORTNESS OF BREATH, (Reported) Ascorbate Calcium 500 Mg Tablet, 500 MG PO DAILY, (Reported) Atorvastatin Calcium 40 Mg Tablet, 40 MG PO HS, (Reported) Budesonide/Formoterol Fumarate 10.2 Gm Hfa.aer.ad, 2 PUFF IH BID, (Reported) Bupropion HCl 300 Mg Tab.er.24h, 300 MG PO HS, (Reported) Carboxymethylcellulose Sodium 15 Ml Drops, 1 DROP OD UD PRN for EYE IRRITATION, (Reported) Diltiazem HCl 120 Mg Cap.er.24h, 120 MG PO BID Prescribed by: SATHISH ABAD on 04/23/19 0925 Furosemide 20 Mg Tablet, 20 MG PO Q48H, (Reported) Gabapentin 400 Mg Capsule, 400 MG PO TID, (Reported) Guaifenesin/Dextromethorphan 237 Ml Liquid, 5 ML PO Q4H PRN for COUGH, (Reported) Lorazepam 0.5 Mg Tablet, 0.5 MG PO HS, (Reported) Mag Hydrox/Aluminum Hyd/Simeth 355 Ml Oral.susp, 30 ML PO Q4H PRN for INDIGESTION, (Reported) Mirabegron 25 Mg Tab.er.24h, 25 MG PO DAILY, (Reported) Ondansetron HCl 4 Mg Tablet, 4 MG PO Q6H PRN for NAUSEA/VOMITING-1ST LINE, ( Reported) Oxybutynin Chloride 10 Mg Tab.er.24, 10 MG PO DAILY, (Reported) Pantoprazole Sodium 40 Mg Tablet.dr, 40 MG PO DAILY, (Reported) Potassium Chloride 20 Meq Tab.er.prt, 40 MEQ PO Q48H, (Reported) TAKES 2 (20MEQ) TABLETS EVERY OTHER DAY WITH FUROSEMIDE Prednisolone Acetate/Pf 5 Ml Drops.susp, 1 DROP OD QID, (Reported) Prednisone 10 Mg Tab.ds.pk, 10 MG PO DAILY Take 6 tabs(60mg)daily,decrease by 1 tab(10MG)daily. Prescribed by: BARBER CRONIN on 04/23/19 0944 Sertraline HCl 50 Mg Tablet, 50 MG PO DAILY, (Reported) Tamsulosin HCl 0.4 Mg Cap, 0.4 MG PO DAILY, (Reported) Tramadol HCl 50 Mg Tablet, 50 MG PO TID, (Reported) Trazodone HCl 50 Mg Tablet, 25 MG PO HS, (Reported) TAKES 1/2 (50MG) TABLET [Flavoxate 100MG] , 100 MG PO TID PRN for BLADDER SPASMS, (Reported) Patient Home Medication List Home Medication List Reviewed: Yes Review of Systems Constitutional: see HPI; No chills, No fever Musculoskeletal: see HPI, joint pain (right shoulder) All Other Systems Reviewed Negative Unless Noted: Yes Past Lxizblq-Neponr-Onlwqn Hx Past Med/Social Hx: Reviewed Nursing Past Med/Soc Hx Patient Social History Type Used: Cigarettes Former Smoker, Quit: Oct 15, 1988 2nd Hand Smoke Exposure: No Recent Foreign Travel: No Contact w/Someone Who Travel: No Recent Infectious Disease Expo: No Recent Hopitalizations: No Immunizations Up To Date Tetanus Booster (TDap): Unknown PED Vaccines UTD: No Date of Pneumonia Vaccine: Sep 05, 2014 Date of Influenza Vaccine: Aug 19, 2017 Seasonal Allergies Seasonal Allergies: No Past Medical History Surgeries: Yes Adenoidectomy, Appendectomy, Bladder Surgery, Cardiac, CABG, Gallbladder, Hysterectomy, Joint Replacement, Orthopedic, Tonsillectomy Respiratory: Yes Asthma Cardiac: Yes (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, 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, Atrial Fibrillation Neurological: Yes (HAD BRAIN SURGERY FOR ANEURYSM 2008) Reproductive Disorders: Yes Female Reproductive Disorders: Endometriosis 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 Sexually Transmitted Disease: No Genitourinary: Yes UTI-Chronic Gastrointestinal: No Chronic Constipation Musculoskeletal: Yes ( BILAT ROTATOR CUFF SURGERY) Degenerate Disk Disease, Arthritis, Chronic Back Pain Endocrine: Yes Diabetes, Non-Insulin dep Cataract Loss of Vision: Denies Hearing Impairment: Denies Cancer: No Psychosocial: Yes (panic disorder) Anxiety, Depression Integumentary: No Blood Disorders: No Adverse Reaction/Blood Tranf: No Family Medical History Reviewed Nursing Family Hx Cancer 09 SISTER Cancer of colon Cataract 03 MOTHER, Onset:Unknown Family history: Allergy 03 FATHER, Onset:Unknown 03 MOTHER, Onset:Unknown Family history: Arthritis 03 FATHER, Onset:Unknown 03 MOTHER, Onset:Unknown 09 SISTER, Onset:Unknown Family history: Cardiovascular disease 03 FATHER, Onset:Unknown 03 MOTHER, Onset:Unknown 09 BROTHER, Onset:Unknown 09 SISTER, Onset:Unknown Family history: Diabetes mellitus 03 MOTHER, Onset:Unknown Family history: Gastrointestinal disease 03 FATHER, Onset:Unknown Family history: Hypertension 03 MOTHER, Onset:Unknown Family history: Osteoporosis 03 MOTHER, Onset:Unknown Hearing loss 03 FATHER, Onset:Unknown Heart disease 03 FATHER, Onset:Unknown 03 MOTHER, Onset:Unknown 09 BROTHER, Onset:Unknown Hypercholesterolemia 03 MOTHER, Onset:Unknown Malignant neoplasm of lung 09 SISTER, Onset:Unknown Myocardial infarction 09 BROTHER, Onset:Unknown Parkinson's disease Stroke 03 FATHER, Onset:Unknown Thyroid disease No Family History of: Abdominal aortic aneurysm [place]'s disease Alcoholism Aphasia Chest pain Congenital heart disease Congestive heart failure Cystic fibrosis Dementia Dysphagia Family history: Alzheimer's disease Family history: Asthma Family history: Breast disease Family history: Coronary thrombosis Family history: Glaucoma Family history: Thyroid disorder Headache Hereditary disease History of - anemia History of - disorder History of - respiratory disease History of drug abuse Human immunodeficiency virus (HIV) seropositivity Infertile Kidney disease Prostate cancer Psychotic disorder Seizure disorder Tuberculosis Visual impairment Heart Disease, Diabetes Physical Exam Vital Signs Vital Signs - First Documented 04/24/19 17:54 Temp 97.6 Pulse 113 Resp 20 B/P (MAP) 120/60 (80) Pulse Ox 96 O2 Delivery Room Air Capillary Refill : Less Than 3 Seconds Height, Weight, BMI Height: 5'2.00" Weight: 165lbs. 7.0oz. [id number]; 33.5 BMI Method:Stated General Appearance: WD/WN, no apparent distress Cardiovascular: normal peripheral pulses, regular rate, rhythm, no edema, no gallop, no JVD, no murmur Respiratory: chest non-tender, lungs clear, normal breath sounds, no respiratory distress, no accessory muscle use Shoulder: pain (right shoulder) Neurologic/Tendon: normal sensation, normal motor functions, normal tendon functions, responds to pain, no evidence tendon injury Neurologic/Psychiatric: alert, normal mood/affect, oriented x 3 Progress/Results/Core Measures Results/Orders My Orders Orders - ERIK OTERO Rx-Hydrocodone/Apap 5-325 Mg (Rx-Vicodin (04/24/19 19:43) Rx-Hydrocodone/Apap 5-325 Mg (Rx-Vicodin (04/24/19 20:00) Medications Given in ED Vital Signs/I&O Blood Pressure Mean: 80 Departure Impression Primary Impression: Strain of right upper arm Disposition: HOME, SELF-CARE Condition: Stable/Unchanged Departure-Patient Inst. Decision time for Depature: 19:40 Referrals: SHANIQUE VEGA MD (PCP/Family) Primary Care Physician Patient Instructions: Muscle Strain (DC) Add. Discharge Instructions: You may use your prescribed hydrocodone as directed by the bottle for pain relief. Ice to the sore areas at 20 minute intervals. Wear the sling as needed for comfort. Follow-up with your primary care provider within 1 week for recheck. Return back to the emergency room for worsening symptoms or concerns as needed. All discharge instructions reviewed with patient and/or family. Voiced understanding. ERIK OTERO Apr 24, 2019 18:35
--- NOTE | 2019-04-24 19:19 | Diagnostic Imaging Report ---
INDICATION: Right shoulder pain. EXAMINATION: Right humerus at 6:56 p.m. Three views were obtained. COMPARISON: There are no prior studies available for comparison. FINDINGS: There is no fracture, dislocation or acute bony abnormality evident. There is only mild degenerative disease of the elbow joint but there is fairly severe degenerative disease of the shoulder joint. The soft tissues are unremarkable. IMPRESSION: There is no evidence for an acute bony abnormality. Dictated by: Dictated on workstation # [id number]
[2019-04-24 19:43] VITALS: BP 120/60
[2019-04-24] MEDS ORDERED: RX-HYDROCODONE/APAP 5/325 MG #4 TAB PK PO ONE (19:43)
[2019-04-24] MEDS ORDERED: HYDROcodone/APAP 5 MG/325 MG (LORTAB) TAB PO ONE (19:45)
[2019-04-24] MEDS ORDERED: RX-HYDROCODONE/APAP 5/325 MG #4 TAB PK PO PRN (20:00)
== END 2019-04-24 19:47 | disposition home or self-care (01) ==
LOC: EDUNIT# 17:26 → ER 17:27
DX: S46.911A Strain of unspecified muscle, fascia and tendon at shoulder and upper arm level, right arm, initial encounter (principal); J45.909 Unspecified asthma, uncomplicated; I48.91 Unspecified atrial fibrillation; E11.9 Type 2 diabetes mellitus without complications; F41.0 Panic disorder [episodic paroxysmal anxiety]; F32.9 Major depressive disorder, single episode, unspecified; Z87.19 Personal history of other diseases of the digestive system; Z87.440 Personal history of urinary (tract) infections; Z88.2 Allergy status to sulfonamides; Z88.8 Allergy status to other drugs, medicaments and biological substances; Z80.0 Family history of malignant neoplasm of digestive organs; Z82.49 Family history of ischemic heart disease and other diseases of the circulatory system; Z79.52 Long term (current) use of systemic steroids; Z87.891 Personal history of nicotine dependence; Z90.49 Acquired absence of other specified parts of digestive tract; Z90.89 Acquired absence of other organs; Z98.890 Other specified postprocedural states; Z90.710 Acquired absence of both cervix and uterus; Z95.1 Presence of aortocoronary bypass graft; X50.1XXA Overexertion from prolonged static or awkward postures, initial encounter
CPT/HCPCS: 73060

== ENCOUNTER → 2019-05-28 | Outpatient (CLI) | payer MEDICARE, MEDICAID ==
[~2019-05-28] MED LIST changes: +CATHETER FLUSH 10 ML SYR IV PRN; +HOLD METFORMIN - RECEIVED CONTRAST 20 ML VIAL IV SCH; +IOHEXOL 350 MG/ML 100 ML (OMNIPAQUE 350) VIAL IV ONE; +NS 100 ML (IVPB) BAG IV ONE
[2019-05-28 08:57] LABS: BUN/CREATININE RATIO 21; CREATININE SERUM 0.73 MG/DL (0.60-1.30); GFR ESTIMATED > 60
--- NOTE | 2019-05-28 10:30 | Diagnostic Imaging Report ---
PROCEDURE: CT chest with contrast only. TECHNIQUE: Multiple contiguous axial images were obtained through the chest after administration of intravenous contrast. Auto Exposure Controls were utilized during the CT exam to meet ALARA standards for radiation dose reduction. INDICATION: Cough. COMPARISON: Correlation is made with prior study from 02/08/2015. FINDINGS: There are changes of median sternotomy and CABG. The heart is enlarged. No axillary lymphadenopathy is seen. No definite mediastinal or hilar lymphadenopathy is identified. No pericardial or pleural fluid is detected. Parenchymal evaluation does show centrilobular emphysematous changes throughout both lungs. There is some linear scarring or atelectasis in the right upper lobe. No infiltrates are seen. No nodules or masses are detected. Central airways are patent. Upper abdomen is unremarkable. IMPRESSION: 1. Cardiomegaly and status post CABG. 2. Centrilobular emphysematous changes. No acute infiltrate, nodule or mass is seen. No thoracic lymphadenopathy is detected. Dictated by: Dictated on workstation # [id number]
== END ==
LOC: RAD 08:20
PROVIDERS: ATTEND Nurse Practitioner Family
DX: J43.2 Centrilobular emphysema (principal); F41.9 Anxiety disorder, unspecified; Z72.0 Tobacco use; Z95.1 Presence of aortocoronary bypass graft
CPT/HCPCS: 36415; 71260; 82565; 84520

== ENCOUNTER → 2019-07-24 | Outpatient (CLI) | payer MEDICARE, MEDICAID ==
[~2019-07-24] MED LIST changes: -CATHETER FLUSH 10 ML SYR IV PRN; -HOLD METFORMIN - RECEIVED CONTRAST 20 ML VIAL IV SCH; -IOHEXOL 350 MG/ML 100 ML (OMNIPAQUE 350) VIAL IV ONE; -NS 100 ML (IVPB) BAG IV ONE; +RT-ALBUTEROL SULF 2.5 MG/3 ML PRE-MIX VIAL INH ONE
== END ==
LOC: RT 14:21
PROVIDERS: ATTEND Nurse Practitioner Family
DX: J44.9 Chronic obstructive pulmonary disease, unspecified (principal); F41.9 Anxiety disorder, unspecified; Z72.0 Tobacco use
CPT/HCPCS: 94060; 94726; 94729

== ENCOUNTER 2020-01-14 17:55 | Emergency (ER) | payer MEDICARE, MEDICAID ==
[~2020-01-14] VITALS: Ht 157 cm; Wt 78.0 kg
[~2020-01-14 17:55] MED LIST changes: +BUPR300T98 PO; +DILT120C88 PO; -DILT120C94 PO; -HYDR-3812 PO; +METF500T19 PO; -MORP-34 PO; +MORP-69 PO; +ONDA-105 PO; -ONDA4TAB10 PO; -OXYB10TA PO; +OXYB10TA29 PO; -RT-ALBUTEROL SULF 2.5 MG/3 ML PRE-MIX VIAL INH ONE; -TAMS0.4C98 PO; +TMSL.4C PO; -TRAZ-222 PO; +TRZ50T PO
[2020-01-14 17:58] VITALS: BP 118/58
[2020-01-14 18:17] LABS: BILIRUBIN,URINE NEGATIVE (NEGATIVE); CLARITY,URINE CLOUDY; COLOR,URINE YELLOW; GLUCOSE, URINE (UA) NEGATIVE (NEGATIVE); KETONES,URINE NEGATIVE (NEGATIVE); LEUKOCYTE ESTERASE ,URINE 2+ (NEGATIVE); NITRITE,URINE NEGATIVE (NEGATIVE); PROTEIN,URINE 1+ (NEGATIVE)
[2020-01-14 18:18] LABS: BASOPHILS % (AUTO) 0 % (0-10); EOSINOPHILS # (AUTO) 0.1 10^3/uL (0.0-0.3); EOSINOPHILS % (AUTO) 2 % (0-10); HEMATOCRIT 31 % (35-52); HEMOGLOBIN 9.3 G/DL (11.5-16.0); LYMPHOCYTES # (AUTO) 1.8 X 10^3 (1.0-4.0); LYMPHOCYTES % (AUTO) 23 % (12-44); MEAN CORPUSCULAR HEMOGLOBIN 20 PG (25-34); MEAN CORPUSCULAR HGB CONC 30 G/DL (32-36); MEAN CORPUSCULAR VOLUME 67 FL (80-99); MEAN PLATELET VOLUME 9.6 FL (7.4-10.4); MONOCYTES % (AUTO) 13 % (0-12); NEUTROPHILS # (AUTO) 4.8 X 10^3 (1.8-7.8); NEUTROPHILS % (AUTO) 62 % (42-75); PLATELET COUNT 398 10^3/uL (130-400); RED CELL DISTRIBUTION WIDTH 27.4 % (10.0-14.5); WHITE BLOOD COUNT 7.8 10^3/uL (4.3-11.0)
[2020-01-14 18:25] LABS: BACTERIA,URINE LARGE /HPF; WBC,URINE 50-100 /HPF
[2020-01-14 18:27] LABS: INR 1.4 (0.8-1.4); PROTHROMBIN TIME PATIENT 17.6 SEC (12.2-14.7)
[2020-01-14 18:34] LABS: ALANINE AMINOTRANSFERASE 12 U/L (0-55); ALBUMIN 4.1 GM/DL (3.2-4.5); ALKALINE PHOSPHATASE 90 U/L (40-136); BILIRUBIN,TOTAL 0.3 MG/DL (0.1-1.0); BUN/CREATININE RATIO 17; CALCIUM 8.8 MG/DL (8.5-10.1); CARBON DIOXIDE 26 MMOL/L (21-32); CHLORIDE 104 MMOL/L (98-107); GFR ESTIMATED 60; GLUCOSE 117 MG/DL (70-105); POTASSIUM 4.2 MMOL/L (3.6-5.0); SODIUM 137 MMOL/L (135-145); TOTAL PROTEIN 7.2 GM/DL (6.4-8.2)
--- NOTE | 2020-01-14 18:47 | Diagnostic Imaging Report ---
PROCEDURE: CT head wo r/o stroke. TECHNIQUE: Multiple contiguous axial images were obtained through the brain without the use of intravenous contrast. Auto Exposure Controls were utilized during the CT exam to meet ALARA standards for radiation dose reduction. INDICATION: Left weakness. Comparison made with prior examination 12/14/2017. FINDINGS: There is prominence of ventricles and sulci. There is some chronic microvascular ischemic disease. There is a subtle area of decreased attenuation in the right basal ganglia. This is suspect for lacunar infarct age which is indeterminate. There is no hydrocephalus. There is no midline shift. There is no mass, hemorrhage or extra-axial fluid collection. Calvarium is intact. Sinuses and mastoid air cells are clear. IMPRESSION: Atrophy and some chronic microvascular ischemic disease. Subtle area of decreased attenuation in the right basal ganglia suspect for lacunar infarct. Age of this is indeterminate. If there is high clinical concern for acute CVA, further evaluation with MRI should be considered Dictated by: Dictated on workstation # [id number]
--- NOTE | 2020-01-14 18:48 | Diagnostic Imaging Report ---
INDICATION: Left weakness. COMPARISON: Comparison made with prior examination from 04/20/2019. FINDINGS: There is cardiomegaly. There has been a previous median sternotomy and coronary artery bypass graft. There is some venous congestion. There is no pleural effusion or pneumothorax. Mediastinum is unremarkable. IMPRESSION: Cardiomegaly and moderate central pulmonary venous congestion. Dictated by: Dictated on workstation # [id number]
--- NOTE | 2020-01-14 18:54 | ED General ---
General Chief Complaint: Altered Mental Status Stated Complaint: POSSIBLE STROKE Nursing Triage Note: PT PRESENTS TO ED FROM [facility] FOR REPORTS OF SPEECH CHANGES AND L SIDE WEAKNESS. UPON ARRIVAL TO ED PT SPEECH IS CLEAR AND SHE IS ORIENTED TO SELF AND PLACE. Nursing Sepsis Screen: No Definite Risk History of Present Illness Date Seen by Provider: Jan 14, 2020 Time Seen by Provider: 18:00 Initial Comments 84-year-old female presents via EMS from [place] for difficulty speaking. Patient denies any problems at this time. She is alert and oriented, times 3. Hi story of CVA, on Eliquis, and left shoulder injury/surgery. Patient's only complaint is back pain, which she says is chronic. Pt had craniotomy approx 20 years ago in [place] for Subdural Hematoma and was told not to have MRI. She is on Elquis for A-Fib. Previous left should surgery but more pain in the last month. Timing/Duration: 1-3 Hours Associated Systoms: No Chest Pain, No Cough, No Diaphoresis, No Fever/Chills, No Headaches, No Loss of Appetite, No Malaise, No Nausea/Vomiting, No Rash, No Seizure, No Shortness of Air, No Syncope; Weakness Allergies and Home Medications Allergies Coded Allergies: Sulfa (Sulfonamide Antibiotics) (Verified Allergy, Unknown, 04/16/19) diphenhydramine HCl (Verified Allergy, Unknown, 04/16/19) hydrochlorothiazide (Unverified Allergy, Unknown, 04/16/19) varenicline tartrate (Verified Allergy, Unknown, 04/16/19) Home Medications Acetaminophen 325 Mg Tablet, 650 MG PO Q4H PRN for PAIN-MILD, (Reported) TAKES 2 (325MG) TABLETS Albuterol Sulfate 8.5 Gm Hfa.aer.ad, 1 PUFF IH Q6H PRN for SHORTNESS OF BREATH, (Reported) Ascorbate Calcium 500 Mg Tablet, 500 MG PO DAILY, (Reported) Atorvastatin Calcium 40 Mg Tablet, 40 MG PO HS, (Reported) Budesonide/Formoterol Fumarate 10.2 Gm Hfa.aer.ad, 2 PUFF IH BID, (Reported) Bupropion HCl 300 Mg Tab.er.24h, 300 MG PO HS, (Reported) Carboxymethylcellulose Sodium 15 Ml Drops, 1 DROP OD UD PRN for EYE IRRITATION, (Reported) Diltiazem HCl 120 Mg Cap.er.24h, 120 MG PO BID Prescribed by: SATHISH ABAD on 04/23/19924 Furosemide 20 Mg Tablet, 20 MG PO Q48H, (Reported) Gabapentin 400 Mg Capsule, 400 MG PO TID, (Reported) Guaifenesin/Dextromethorphan 237 Ml Liquid, 5 ML PO Q4H PRN for COUGH, (Reported) Lorazepam 0.5 Mg Tablet, 0.5 MG PO HS, (Reported) Mag Hydrox/Aluminum Hyd/Simeth 355 Ml Oral.susp, 30 ML PO Q4H PRN for INDIGESTION, (Reported) Mirabegron 25 Mg Tab.er.24h, 25 MG PO DAILY, (Reported) Nitrofurantoin Monohyd/M-Cryst 100 Mg Capsule, 1 TAB PO BID Prescribed by: VIRIDIANA ALVARES on 01/14/202046 Ondansetron HCl 4 Mg Tablet, 4 MG PO Q6H PRN for NAUSEA/VOMITING-1ST LINE, (Reported) Oxybutynin Chloride 10 Mg Tab.er.24, 10 MG PO DAILY, (Reported) Pantoprazole Sodium 40 Mg Tablet.dr, 40 MG PO DAILY, (Reported) Potassium Chloride 20 Meq Tab.er.prt, 40 MEQ PO Q48H, (Reported) TAKES 2 (20MEQ) TABLETS EVERY OTHER DAY WITH FUROSEMIDE Prednisolone Acetate/Pf 5 Ml Drops.susp, 1 DROP OD QID, (Reported) Prednisone 10 Mg Tab.ds.pk, 10 MG PO DAILY Take 6 tabs(60mg)daily,decrease by 1 tab(10MG)daily. Prescribed by: BARBER CRONIN on 04/23/19943 Sertraline HCl 50 Mg Tablet, 50 MG PO DAILY, (Reported) Tamsulosin HCl 0.4 Mg Cap, 0.4 MG PO DAILY, (Reported) Tramadol HCl 50 Mg Tablet, 50 MG PO TID, (Reported) Trazodone HCl 50 Mg Tablet, 25 MG PO HS, (Reported) TAKES 1/2 (50MG) TABLET [Flavoxate 100MG] , 100 MG PO TID PRN for BLADDER SPASMS, (Reported) Patient Home Medication List Home Medication List Reviewed: Yes Review of Systems Review of Systems Constitutional: no symptoms reported, see HPI Respiratory: no symptoms reported, see HPI Cardiovascular: no symptoms reported, see HPI Gastrointestinal: no symptoms reported, see HPI Musculoskeletal: see HPI, joint pain (left shoulder), muscle weakness (left upper extremity, secondary to pain) All Other Systems Reviewed Negative Unless Noted: Yes Past Kfphreo-Jzikdm-Rczbtr Hx Past Med/Social Hx: Reviewed Nursing Past Med/Soc Hx Patient Social History Alcohol Use: Denies Use Recreational Drug Use: No Smoking Status: Former Smoker Type Used: Cigarettes Former Smoker, Quit: Oct 15, 1988 2nd Hand Smoke Exposure: No Recent Foreign Travel: No Contact w/Someone Who Travel: No Recent Infectious Disease Expo: No Recent Hopitalizations: No Physical Abuse: No Sexual Abuse: No Mistreated: No Fear: No Immunizations Up To Date Tetanus Booster (TDap): Unknown PED Vaccines UTD: No Date of Pneumonia Vaccine: Sep 05, 2014 Date of Influenza Vaccine: Aug 19, 2017 Seasonal Allergies Seasonal Allergies: No Past Medical History Surgeries: Yes Adenoidectomy, Appendectomy, Bladder Surgery, Cardiac, CABG, Gallbladder, Hysterectomy, Joint Replacement, Orthopedic, Tonsillectomy Respiratory: Yes Asthma, COPD Cardiac: Yes (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, 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, Atrial Fibrillation, Coronary Artery Disease, High Cholesterol Neurological: Yes (HAD BRAIN SURGERY FOR ANEURYSM 2008) Reproductive Disorders: Yes Female Reproductive Disorders: Endometriosis 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: Hysterectomy Sexually Transmitted Disease: No Genitourinary: Yes UTI-Chronic Gastrointestinal: No Chronic Constipation Musculoskeletal: Yes ( BILAT ROTATOR CUFF SURGERY) Degenerate Disk Disease, Arthritis, Chronic Back Pain Endocrine: Yes Diabetes, Non-Insulin dep Cataract Loss of Vision: Denies Hearing Impairment: Denies Cancer: No Psychosocial: Yes (panic disorder) Anxiety, Depression Integumentary: No Blood Disorders: No Adverse Reaction/Blood Tranf: No Family Medical History Cancer 09 SISTER Cancer of colon Cataract 03 MOTHER, Onset:Unknown Family history: Allergy 03 FATHER, Onset:Unknown 03 MOTHER, Onset:Unknown Family history: Arthritis 03 FATHER, Onset:Unknown 03 MOTHER, Onset:Unknown 09 SISTER, Onset:Unknown Family history: Cardiovascular disease 03 FATHER, Onset:Unknown 03 MOTHER, Onset:Unknown 09 BROTHER, Onset:Unknown 09 SISTER, Onset:Unknown Family history: Diabetes mellitus 03 MOTHER, Onset:Unknown Family history: Gastrointestinal disease 03 FATHER, Onset:Unknown Family history: Hypertension 03 MOTHER, Onset:Unknown Family history: Osteoporosis 03 MOTHER, Onset:Unknown Hearing loss 03 FATHER, Onset:Unknown Heart disease 03 FATHER, Onset:Unknown 03 MOTHER, Onset:Unknown 09 BROTHER, Onset:Unknown Hypercholesterolemia 03 MOTHER, Onset:Unknown Malignant neoplasm of lung 09 SISTER, Onset:Unknown Myocardial infarction 09 BROTHER, Onset:Unknown Parkinson's disease Stroke 03 FATHER, Onset:Unknown Thyroid disease No Family History of: Abdominal aortic aneurysm [place]'s disease Alcoholism Aphasia Chest pain Congenital heart disease Congestive heart failure Cystic fibrosis Dementia Dysphagia Family history: Alzheimer's disease Family history: Asthma Family history: Breast disease Family history: Coronary thrombosis Family history: Glaucoma Family history: Thyroid disorder Headache Hereditary disease History of - anemia History of - disorder History of - respiratory disease History of drug abuse Human immunodeficiency virus (HIV) seropositivity Infertile Kidney disease Prostate cancer Psychotic disorder Seizure disorder Tuberculosis Visual impairment Heart Disease, Diabetes Physical Exam Vital Signs Vital Signs - First Documented 01/14/20 17:58 Temp 37.2 Pulse 106 Resp 18 B/P (MAP) 118/58 (78) Capillary Refill : Less Than 3 Seconds Height, Weight, BMI Height: 5'2.00" Weight: 165lbs. 7.0oz. 74.040310ku; 31.00 BMI Method:Stated General Appearance: No Apparent Distress, WD/WN Eyes: Bilateral Eye Normal Inspection, Bilateral Eye PERRL HEENT: PERRL/EOMI, TMs Normal, Pharynx Normal Neck: Full Range of Motion, Normal Inspection, Non Tender, Supple Respiratory: Chest Non Tender, Lungs Clear, Normal Breath Sounds Cardiovascular: Regular Rate, Rhythm, No Edema, No Murmur, Normal Peripheral Pulses Gastrointestinal: Normal Bowel Sounds, Non Tender, Soft Genital/Rectal: Other (Askew catheter in place) Back: Normal Inspection, Vertebral Tenderness (Trace, lower lumbar) Extremity: Normal Capillary Refill, Normal Inspection, Normal Range of Motion, Non Tender, Other (Trace weakness left arm, Scar anterior left shoulder. Follows all Commands. 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 Norm as Tested (grossly intact) Skin: Normal Color, Warm/Dry Comments NIH 0 Progress/Results/Core Measures Suspected Sepsis Recent Fever Within 48 Hours: No Infection Criteria Present: None New/Unexplained Altered Menta: No Sepsis Screen: No Definite Risk SIRS Temperature: Pulse: 106 Respiratory Rate: 18 Laboratory Tests 01/14/20 18:02: White Blood Count 7.8 Blood Pressure 118 /58 Mean: 78 Laboratory Tests 2/27/20 18:02: Creatinine 0.90, INR Comment 1.4, Platelet Count 398, Total Bilirubin 0.3 Results/Orders Lab Results Laboratory Tests Test 01/14/20 18:02 01/14/20 18:11 Range/Units White Blood Count 7.8 4.3-11.0 10^3/uL Red Blood Count 4.66 4.35-5.85 10^6/uL Hemoglobin 9.3 L 11.5-16.0 G/DL Hematocrit 31 L 35-52 % Mean Corpuscular Volume 67 L 80-99 FL Mean Corpuscular Hemoglobin 20 L 25-34 PG Mean Corpuscular Hemoglobin Concent 30 L 32-36 G/DL Red Cell Distribution Width 27.4 H 10.0-14.5 % Platelet Count 398 130-400 10^3/uL Mean Platelet Volume 9.6 7.4-10.4 FL Neutrophils (%) (Auto) 62 42-75 % Lymphocytes (%) (Auto) 23 12-44 % Monocytes (%) (Auto) 13 H 0-12 % Eosinophils (%) (Auto) 2 0-10 % Basophils (%) (Auto) 0 0-10 % Neutrophils # (Auto) 4.8 1.8-7.8 X 10^3 Lymphocytes # (Auto) 1.8 1.0-4.0 X 10^3 Monocytes # (Auto) 1.0 0.0-1.0 X 10^3 Eosinophils # (Auto) 0.1 0.0-0.3 10^3/uL Basophils # (Auto) 0.0 0.0-0.1 10^3/uL Prothrombin Time 17.6 H 12.2-14.7 SEC INR Comment 1.4 0.8-1.4 Activated Partial Thromboplast Time 35 24-35 SEC Sodium Level 137 135-145 MMOL/L Potassium Level 4.2 3.6-5.0 MMOL/L Chloride Level 104 98-107 MMOL/L Carbon Dioxide Level 26 21-32 MMOL/L Anion Gap 7 5-14 MMOL/L Blood Urea Nitrogen 15 7-18 MG/DL Creatinine 0.90 0.60-1.30 MG/DL Estimat Glomerular Filtration Rate 60 BUN/Creatinine Ratio 17 Glucose Level 117 H 70-105 MG/DL Calcium Level 8.8 8.5-10.1 MG/DL Corrected Calcium 8.7 8.5-10.1 MG/DL Total Bilirubin 0.3 0.1-1.0 MG/DL Aspartate Amino Transf (AST/SGOT) 14 5-34 U/L Alanine Aminotransferase (ALT/SGPT) 12 0-55 U/L Alkaline Phosphatase 90 40-136 U/L Troponin I < 0.028 <0.028 NG/ML Total Protein 7.2 6.4-8.2 GM/DL Albumin 4.1 3.2-4.5 GM/DL Urine Color YELLOW Urine Clarity CLOUDY Urine pH 7.0 5-9 Urine Specific [place] >=1.030 1.016-1.022 Urine Protein 1+ H NEGATIVE Urine Glucose (UA) NEGATIVE NEGATIVE Urine Ketones NEGATIVE NEGATIVE Urine Nitrite NEGATIVE NEGATIVE Urine Bilirubin NEGATIVE NEGATIVE Urine Urobilinogen 0.2 < = 1.0 MG/DL Urine Leukocyte Esterase 2+ H NEGATIVE Urine RBC (Auto) 2+ H NEGATIVE Urine RBC 10-25 H /HPF Urine WBC 50-100 H /HPF Urine Crystals NONE /LPF Urine Bacteria LARGE H /HPF Urine Casts NONE /LPF Urine Mucus NEGATIVE /LPF Urine Culture Indicated YES My Orders Orders - VIRIDIANA ALVARES Cbc With Automated Diff (01/14/20 18:08) Protime With Inr (01/14/20 18:08) Partial Thromboplastin Time (01/14/20 18:08) Comprehensive Metabolic Panel (01/14/20 18:08) Troponin I (01/14/20 18:08) Ua Culture If Indicated (01/14/20 18:08) Chest 1 View, Ap/Pa Only (01/14/20 18:08) Ekg Tracing (01/14/20 18:08) Ed Iv/Invasive Line Start (01/14/20 18:08) Vital Signs Stroke Patient Q15M (01/14/20 18:08) Ct Head Wo-R/O Stroke (01/14/20 18:08) Monitor-Rhythm Ecg Trace Only (01/14/20 18:08) Dysphagia Screening Tool (01/14/20 18:08) Urine Culture (01/14/20 18:11) Tramadol Tablet (Ultram Tablet) (01/14/20 19:00) Ct Angio Head/Neck (01/14/20 19:18) Iohexol Injection (Omnipaque 350 Mg/Ml 1 (01/14/20 19:30) Received Contrast (Hold Metformin- Contr (01/14/20 19:30) Sodium Chloride Flush (Catheter Flush Sy (01/14/20 19:30) Ns (Ivpb) (Sodium Chloride 0.9% Ivpb Bag (01/14/20 19:30) Nitrofurantoin Capsule,Macro (Macrobid C (01/14/20 21:00) Nitrofurantoin Capsule,Macro (Macrobid C (01/14/20 20:49) Medications Given in ED Current Medications Medications Dose Ordered Sig/Kervin Route Start Time Stop Time Status Last Admin Dose Admin Iohexol 100 ml ONCE ONCE IV 01/14/20 19:30 01/14/20 19:31 DC 01/14/20 19:47 75 ML Nitrofurantoin Macrocrystals 100 mg ONCE ONCE PO 01/14/20 21:00 01/14/20 20:59 DC 01/14/20 20:55 100 MG Sodium Chloride 10 ml NEEDED PRN IV 01/14/20 19:30 01/14/20 20:59 DC 01/14/20 19:47 10 ML Sodium Chloride 100 ml ONCE ONCE IV 01/14/20 19:30 01/14/20 19:31 DC 01/14/20 19:47 80 ML Tramadol HCl 50 mg ONCE ONCE PO 01/14/20 19:00 01/14/20 19:01 DC 01/14/20 18:50 50 MG Vital Signs/I&O 01/14/20 17:58 Temp 37.2 Pulse 106 Resp 18 B/P (MAP) 118/58 (78) Capillary Refill : Less Than 3 Seconds Blood Pressure Mean: 78 Progress Note : Time: 18:00 Progress Note Patient seen and evaluated, will obtain CT head, EKG, chest x-ray and labs. 1844 patient complaining of pain in her shoulder and low back, will give tramadol 50 mg orally. Patient's family here, states there is no change from baseline for her. 1929 CT results reviewed with Dr. Gilbert and discussed with patient and family, she can't have a MRI (retained hardware in brain). There is trace weakness in her left arm, but no other focal deficits. Will obtain CT/Angio head and neck. 1999 Patient reports Back pain improved, taking ice chips, no N/V. [address]29 CT angio reviewed with Dr. Delgado and results discussed with the patient and her family. Possible small lacunar infarct noted on both CTs, no further testing recommended and patient is anticoagulated. Recommended treating UTI, Neuro checks at [place] and PT for left arm weakness. Will continue to monitor. Family agreeable with this plan of care. ECG Initial ECG Impression Date: Jan 14, 2020 Initial ECG Impression Time: 18:13 Initial ECG Rate: 93 Initial ECG Rhythm: A Fib/Flutter Initial ECG Intervals: Normal Initial ECG Intervals QRSD 108, QT 360, QTc 448; [place] WRS 82, T -67 Initial ECG Impression: Atrial Fibrillation Initial ECG Comparisson: Unchanged Diagnostic Imaging Diagonstic Imaging: CT Plain Films/CT/US/NM/MRI: head Comments NAME: JULES REYES [facility] REC#: [id number] PT STATUS: REG ER : 1935 PHYSICIAN: VIRIDIANA ALVARES ADMIT DATE: 01/14/20/ER Signed Date of Exam:01/14/20 CT HEAD WO-R/O STROKE PROCEDURE: CT head wo r/o stroke. TECHNIQUE: Multiple contiguous axial images were obtained through the brain without the use of intravenous contrast. Auto Exposure Controls were utilized during the CT exam to meet ALARA standards for radiation dose reduction. INDICATION: Left weakness. Comparison made with prior examination 12/14/2017. FINDINGS: There is prominence of ventricles and sulci. There is some chronic microvascular ischemic disease. There is a subtle area of decreased attenuation in the right basal ganglia. This is suspect for lacunar infarct age which is indeterminate. There is no hydrocephalus. There is no midline shift. There is no mass, hemorrhage or extra-axial fluid collection. Calvarium is intact. Sinuses and mastoid air cells are clear. IMPRESSION: Atrophy and some chronic microvascular ischemic disease. Subtle area of decreased attenuation in the right basal ganglia suspect for lacunar infarct. Age of this is indeterminate. If there is high clinical concern for acute CVA, further evaluation with MRI should be considered Dictated by: Dictated on workstation # [id number] Dict: 01/14/20 1843 Trans: 01/14/20 [id number] Interpreted by: ANNETTE OCAMPO MD Electronically signed by: ANNETTE OCAMPO MD 01/14/201847 Reviewed: Reviewed by [place] Diagonstic Imaging: Xray Plain Films/CT/US/NM/MRI: chest Comments NAME: JULES REYES [facility] REC#: [id number] PT STATUS: REG ER : 1935 PHYSICIAN: VIRIDIANA ALVARES ADMIT DATE: 01/14/20/ER Signed Date of Exam:01/14/20 CHEST 1 VIEW, AP/PA ONLY INDICATION: Left weakness. COMPARISON: Comparison made with prior examination from 04/20/2019. FINDINGS: There is cardiomegaly. There has been a previous median sternotomy and coronary artery bypass graft. There is some venous congestion. There is no pleural effusion or pneumothorax. Mediastinum is unremarkable. IMPRESSION: Cardiomegaly and moderate central pulmonary venous congestion. Dictated by: Dictated on workstation # [id number] Dict: 01/14/201844 Trans: 01/14/201847 [id number] Interpreted by: ANNETTE OCAMPO MD Electronically signed by: ANNETTE OCAMPO MD 01/14/201847 Reviewed: Reviewed by [place] Plain Films/CT/US/NM/MRI: head (and neck) Comments NAME: JULES REYES [facility] REC#: [id number] PT STATUS: REG ER : 1935 PHYSICIAN: VIRIDIANA ALVARES ADMIT DATE: 01/14/20/ER Signed Date of Exam:01/14/20 CT ANGIO HEAD/NECK PROCEDURE: CT angiography of the head and CT angiography of the neck with and without contrast. TECHNIQUE: Contiguous noncontrast images were obtained from the skull base through the vertex. After intravenous contrast administration, helical CT angiography of the neck was performed. Source data was reformatted into 3D MIP projections. Delayed post contrast acquisition was also obtained. Auto Exposure Controls were utilized during the CT exam to meet ALARA standards for radiation dose reduction. INDICATION: Questionable CVA. FINDINGS: There is prominence of ventricles and sulci. There is some chronic microvascular ischemic disease. There is no hydrocephalus. There is no midline shift. There is no mass, hemorrhage or extra-axial fluid collection. Note is again made of questionable lacunar infarct in right basal ganglia. There has been previous left craniotomy. Calvarium is otherwise intact. Sinuses and mastoid air cells are clear. There are no proximal intracranial branch occlusions, vascular malformations or aneurysms. The globes and intraorbital structures are unremarkable. The nasopharyngeal, oropharyngeal and hypopharyngeal tissues are symmetric without mass effect. The parotid glands are grossly unremarkable. The submandibular and thyroid glands are normal in appearance. There is some emphysematous disease in the lung apices. There are also chronic appearing interstitial infiltrates. There is a normal branching pattern of the thoracic aorta. There are codominant vertebral arteries. There is atherosclerotic calcification in the left common carotid artery extending to the level of the bifurcation. There is minimal atherosclerotic calcification in the right common carotid artery. There is also a focal intimal flap in the mid right common carotid artery proximal to the bifurcation. The internal carotid arteries and distal vertebral arteries are patent. There is no dissection, stenosis or occlusion. Cavernous carotid arteries demonstrate moderate atherosclerotic plaque. Basilar artery is widely patent. There are moderate degenerative changes in the spine. Prevertebral soft tissues are within normal limits. Epiglottis is unremarkable. IMPRESSION: Atrophy and some chronic microvascular ischemic disease with unchanged focal area of decreased attenuation in the right thalamus suspect for small lacunar infarct. Unremarkable CTA of the kiana Garcia without evidence of large vessel occlusion. Atherosclerotic plaque in the common carotid arteries bilaterally left greater than right. Additionally, there is a focal intimal flap in the right common carotid artery proximal to the bifurcation. The internal carotid arteries and distal vertebral arteries are patent. There is atherosclerotic plaque in the cavernous carotid arteries bilaterally. Emphysematous disease in the lung apices. Dictated by: Dictated on workstation # [id number] Dict: 01/14/202001 Trans: 01/14/202012 [id number] Interpreted by: ANNETTE OCAMPO MD Electronically signed by: ANNETTE OCAMPO MD 01/14/202012 Reviewed: Reviewed by Me Departure Impression Primary Impression: UTI (urinary tract infection) Qualified Codes: N30.01 - Acute cystitis with hematuria Additional Impression: Lacunar infarct, acute Disposition: HOME, SELF-CARE Condition: Stable Departure-Patient Inst. Decision time for Depature: 20:30 Referrals: SHANIQUE VEGA MD (PCP/Family) Primary Care Physician Patient Instructions: Stroke (DC), Urinary Tract Infection, Adult (DC) Add. Discharge Instructions: Physical therapy the patient daily for rehabilitation of left upper extremity. Neuro checks every 2 hours for the next [address] Veag of any changes in neuro status. Continue all medications and add Macrobid twice daily. Return to the emergency department for new, urgent health care needs. All discharge instructions reviewed with patient and/or family. Voiced understanding. Scripts Nitrofurantoin Monohyd/M-Cryst (Macrobid 100 mg Capsule) 100 Mg Capsule 1 TAB PO BID, #20 CAP 0 Refills Prov: VIRIDIANA ALVARES 01/14/20 Copy Copies To 1: SHANIQUE VEGA MD, AMY ARNP Jan 14, 2020 18:54
[2020-01-14] MEDS ORDERED: HOLD METFORMIN - RECEIVED CONTRAST 20 ML VIAL IV SCH (19:30)
[2020-01-14] MEDS ORDERED: NS 100 ML (IVPB) BAG IV ONE (19:30)
[2020-01-14] MEDS ORDERED: IOHEXOL 350 MG/ML 100 ML (OMNIPAQUE 350) VIAL IV ONE (19:30)
[2020-01-14] MEDS ORDERED: CATHETER FLUSH 10 ML SYR IV PRN (19:30)
--- NOTE | 2020-01-14 20:12 | Diagnostic Imaging Report ---
PROCEDURE: CT angiography of the head and CT angiography of the neck with and without contrast. TECHNIQUE: Contiguous noncontrast images were obtained from the skull base through the vertex. After intravenous contrast administration, helical CT angiography of the neck was performed. Source data was reformatted into 3D MIP projections. Delayed post contrast acquisition was also obtained. Auto Exposure Controls were utilized during the CT exam to meet ALARA standards for radiation dose reduction. INDICATION: Questionable CVA. FINDINGS: There is prominence of ventricles and sulci. There is some chronic microvascular ischemic disease. There is no hydrocephalus. There is no midline shift. There is no mass, hemorrhage or extra-axial fluid collection. Note is again made of questionable lacunar infarct in right basal ganglia. There has been previous left craniotomy. Calvarium is otherwise intact. Sinuses and mastoid air cells are clear. There are no proximal intracranial branch occlusions, vascular malformations or aneurysms. The globes and intraorbital structures are unremarkable. The nasopharyngeal, oropharyngeal and hypopharyngeal tissues are symmetric without mass effect. The parotid glands are grossly unremarkable. The submandibular and thyroid glands are normal in appearance. There is some emphysematous disease in the lung apices. There are also chronic appearing interstitial infiltrates. There is a normal branching pattern of the thoracic aorta. There are codominant vertebral arteries. There is atherosclerotic calcification in the left common carotid artery extending to the level of the bifurcation. There is minimal atherosclerotic calcification in the right common carotid artery. There is also a focal intimal flap in the mid right common carotid artery proximal to the bifurcation. The internal carotid arteries and distal vertebral arteries are patent. There is no dissection, stenosis or occlusion. Cavernous carotid arteries demonstrate moderate atherosclerotic plaque. Basilar artery is widely patent. There are moderate degenerative changes in the spine. Prevertebral soft tissues are within normal limits. Epiglottis is unremarkable. IMPRESSION: Atrophy and some chronic microvascular ischemic disease with unchanged focal area of decreased attenuation in the right thalamus suspect for small lacunar infarct. Unremarkable CTA of the [employer] [facility] without evidence of large vessel occlusion. Atherosclerotic plaque in the common carotid arteries bilaterally left greater than right. Additionally, there is a focal intimal flap in the right common carotid artery proximal to the bifurcation. The internal carotid arteries and distal vertebral arteries are patent. There is atherosclerotic plaque in the cavernous carotid arteries bilaterally. Emphysematous disease in the lung apices. Dictated by: Dictated on workstation # [id number]
[2020-01-14] MEDS ORDERED: NITR-65 PO (20:47)
[2020-01-14] MEDS ORDERED: NITROFURANTOIN 100 MG (MACROBID) CAPSULE PO ONE ×2 (20:49→21:00)
== END 2020-01-14 20:59 | disposition home or self-care (01) ==
LOC: EDUNIT# 17:55 → ER 17:57
DX: I63.81 Other cerebral infarction due to occlusion or stenosis of small artery (principal); N39.0 Urinary tract infection, site not specified; I48.91 Unspecified atrial fibrillation; J44.9 Chronic obstructive pulmonary disease, unspecified; I25.10 Atherosclerotic heart disease of native coronary artery without angina pectoris; E78.00 Pure hypercholesterolemia, unspecified; F41.9 Anxiety disorder, unspecified; F32.9 Major depressive disorder, single episode, unspecified; E11.9 Type 2 diabetes mellitus without complications; Z95.1 Presence of aortocoronary bypass graft; Z86.73 Personal history of transient ischemic attack (TIA), and cerebral infarction without residual deficits; Z79.01 Long term (current) use of anticoagulants; Z88.2 Allergy status to sulfonamides; Z88.8 Allergy status to other drugs, medicaments and biological substances; Z79.52 Long term (current) use of systemic steroids; Z87.891 Personal history of nicotine dependence; Z80.0 Family history of malignant neoplasm of digestive organs
CPT/HCPCS: 36415; 70450; 70496; 70498; 71045; 80053; 81000; 84484; 85025; 85610; 85730; 87088; 93005; 93041

== ENCOUNTER → 2020-01-26 | Outpatient (CLI) | payer MEDICARE, MEDICAID | LOC: CARD 14:12 | PROVIDERS: ATTEND Nurse Practitioner Family | DX: I48.0 Paroxysmal atrial fibrillation (principal); I73.9 Peripheral vascular disease, unspecified; I10 Essential (primary) hypertension; I25.10 Atherosclerotic heart disease of native coronary artery without angina pectoris; I65.29 Occlusion and stenosis of unspecified carotid artery | CPT/HCPCS: 93225; 93226 ==

== ENCOUNTER 2020-06-18 10:37 | Inpatient (IN) | payer MEDICARE, MEDICAID ==
[~2020-06-18] VITALS: Ht 157.5 cm; Wt 81.2 kg
[~2020-06-18 10:37] MED LIST changes: +METF-865 PO; -METF500T19 PO
[2020-06-18] MEDS ORDERED: NS IV 1000 ML 1,000 ML IV ONE (10:51)
[2020-06-18] MEDS ORDERED: fentaNYL INJECTION 100 MCG/2 ML AMP IVP STA ×3 (10:51→13:11)
[2020-06-18] MEDS ORDERED: fentaNYL INJECTION 100 MCG/2 ML AMP ONE (10:56)
[2020-06-18 11:13] LABS: BASOPHILS % (AUTO) 0 % (0-10); EOSINOPHILS # (AUTO) 0.2 10^3/uL (0.0-0.3); EOSINOPHILS % (AUTO) 2 % (0-10); HEMATOCRIT 43 % (35-52); HEMOGLOBIN 14.2 G/DL (11.5-16.0); LYMPHOCYTES # (AUTO) 1.6 X 10^3 (1.0-4.0); LYMPHOCYTES % (AUTO) 16 % (12-44); MEAN CORPUSCULAR HEMOGLOBIN 29 PG (25-34); MEAN CORPUSCULAR HGB CONC 33 G/DL (32-36); MEAN CORPUSCULAR VOLUME 87 FL (80-99); MONOCYTES # (AUTO) 0.9 X 10^3 (0.0-1.0); MONOCYTES % (AUTO) 9 % (0-12); NEUTROPHILS # (AUTO) 7.5 X 10^3 (1.8-7.8); NEUTROPHILS % (AUTO) 73 % (42-75); PLATELET COUNT 303 10^3/uL (130-400); RED CELL DISTRIBUTION WIDTH 17.5 % (10.0-14.5); WHITE BLOOD COUNT 10.4 10^3/uL (4.3-11.0)
[2020-06-18 11:18] LABS: ALBUMIN 4.1 GM/DL (3.2-4.5); CHLORIDE 104 MMOL/L (98-107); POTASSIUM 4.5 MMOL/L (3.6-5.0); SODIUM 138 MMOL/L (135-145)
[2020-06-18 11:19] LABS: CALCIUM 9.5 MG/DL (8.5-10.1)
[2020-06-18 11:20] LABS: GLUCOSE 147 MG/DL (70-105); INR 1.1 (0.8-1.4); PROTHROMBIN TIME PATIENT 14.6 SEC (12.2-14.7)
[2020-06-18 11:21] LABS: TOTAL PROTEIN 7.5 GM/DL (6.4-8.2)
[2020-06-18 11:22] LABS: BILIRUBIN,TOTAL 0.4 MG/DL (0.1-1.0); CARBON DIOXIDE 23 MMOL/L (21-32)
--- NOTE | 2020-06-18 11:22 | ED General ---
General Chief Complaint: Abdominal/GI Problems Stated Complaint: ABD PAIN Nursing Triage Note: PT PRESENTS TO ED VIA EMS FROM [facility] [place] FOR COMPLAINTS OF LOWER ABDOMINAL PAIN STARTING AROUND 0930 THIS AM. Nursing Sepsis Screen: No Definite Risk Source of Information: Patient Exam Limitations: No Limitations History of Present Illness Date Seen by Provider: Jun 18, 2020 Time Seen by Provider: 10:37 Initial Comments Here by EMS from the [facility] with complaint of lower abdominal pain that started around 9:30 this morning. Patient states that the pain is quite significant and she is worried about her umbilical hernia. Also complains of vaginal pain. Does have suprapubic catheter. Denies recent injury. Patient is very hard of hearing which complicates history. Denies fever, nausea or vomiting. Somewhat better with position. Askew catheter tubing does show a lot of sediment. EMS reported normal vital signs. Afebrile on arrival. Timing/Duration: 1-3 Hours Severity: Moderate Modifying Factors: worse with Movement Associated Systoms: No Chest Pain, No Cough, No Fever/Chills, No Nausea/Vomiting, No Shortness of Air, No Weakness Allergies and Home Medications Allergies Coded Allergies: Sulfa (Sulfonamide Antibiotics) (Verified Allergy, Unknown, 04/16/19) diphenhydramine HCl (Verified Allergy, Unknown, 04/16/19) hydrochlorothiazide (Unverified Allergy, Unknown, 04/16/19) varenicline tartrate (Verified Allergy, Unknown, 04/16/19) Home Medications Acetaminophen 325 Mg Tablet, 650 MG PO Q4H PRN for PAIN-MILD, (Reported) TAKES 2 (325MG) TABLETS Albuterol Sulfate 8.5 Gm Hfa.aer.ad, 1 PUFF IH Q6H PRN for SHORTNESS OF BREATH, (Reported) Ascorbate Calcium 500 Mg Tablet, 500 MG PO DAILY, (Reported) Atorvastatin Calcium 40 Mg Tablet, 40 MG PO HS, (Reported) Budesonide/Formoterol Fumarate 10.2 Gm Hfa.aer.ad, 2 PUFF IH BID, (Reported) Bupropion HCl 300 Mg Tab.er.24h, 300 MG PO HS, (Reported) Carboxymethylcellulose Sodium 15 Ml Drops, 1 DROP OD UD PRN for EYE IRRITATION, (Reported) Diltiazem HCl 120 Mg Cap.er.24h, 120 MG PO BID Prescribed by: SATHISH ABAD on 6/6/19 0925 Furosemide 20 Mg Tablet, 20 MG PO Q48H, (Reported) Gabapentin 400 Mg Capsule, 400 MG PO TID, (Reported) Guaifenesin/Dextromethorphan 237 Ml Liquid, 5 ML PO Q4H PRN for COUGH, (Reported) Lorazepam 0.5 Mg Tablet, 0.5 MG PO HS, (Reported) Mag Hydrox/Aluminum Hyd/Simeth 355 Ml Oral.susp, 30 ML PO Q4H PRN for INDIGESTION, (Reported) Mirabegron 25 Mg Tab.er.24h, 25 MG PO DAILY, (Reported) Nitrofurantoin Monohyd/M-Cryst 100 Mg Capsule, 1 TAB PO BID Prescribed by: VIRIDIANA ALVARES on 01/14/202046 Ondansetron HCl 4 Mg Tablet, 4 MG PO Q6H PRN for NAUSEA/VOMITING-1ST LINE, (Reported) Oxybutynin Chloride 10 Mg Tab.er.24, 10 MG PO DAILY, (Reported) Pantoprazole Sodium 40 Mg Tablet.dr, 40 MG PO DAILY, (Reported) Potassium Chloride 20 Meq Tab.er.prt, 40 MEQ PO Q48H, (Reported) TAKES 2 (20MEQ) TABLETS EVERY OTHER DAY WITH FUROSEMIDE Prednisolone Acetate/Pf 5 Ml Drops.susp, 1 DROP OD QID, (Reported) Prednisone 10 Mg Tab.ds.pk, 10 MG PO DAILY Take 6 tabs(60mg)daily,decrease by 1 tab(10MG)daily. Prescribed by: BARBER CRONIN on 04/23/19943 Sertraline HCl 50 Mg Tablet, 50 MG PO DAILY, (Reported) Tamsulosin HCl 0.4 Mg Cap, 0.4 MG PO DAILY, (Reported) Tramadol HCl 50 Mg Tablet, 50 MG PO TID, (Reported) Trazodone HCl 50 Mg Tablet, 25 MG PO HS, (Reported) TAKES 1/2 (50MG) TABLET [Flavoxate 100MG] , 100 MG PO TID PRN for BLADDER SPASMS, (Reported) Patient Home Medication List Home Medication List Reviewed: Yes Review of Systems Review of Systems Constitutional: see HPI; No chills, No fever EENTM: no symptoms reported Respiratory: No cough, No short of breath Cardiovascular: no symptoms reported Gastrointestinal: abdominal pain; No diarrhea, No nausea, No vomiting Genitourinary: No hematuria; pain Musculoskeletal: no symptoms reported Skin: change in color (pannus and perivaginal), rash Psychiatric/Neurological: Anxiety; Denies Weakness All Other Systems Reviewed Negative Unless Noted: Yes Past Xeegwya-Bzvdkg-Zweezq Hx Past Med/Social Hx: Reviewed Nursing Past Med/Soc Hx Patient Social History Alcohol Use: Rarely Uses Recreational Drug Use: No Smoking Status: Former Smoker Type Used: Cigarettes Former Smoker, Quit: Oct 15, 1988 2nd Hand Smoke Exposure: No Recent Foreign Travel: No Contact w/Someone Who Travel: No Recent Infectious Disease Expo: No Recent Hopitalizations: No Physical Abuse: No (at age 11) Sexual Abuse: No (at age 11) Mistreated: No Fear: No Immunizations Up To Date Tetanus Booster (TDap): Unknown PED Vaccines UTD: No Date of Pneumonia Vaccine: Sep 05, 2014 Date of Influenza Vaccine: Aug 19, 2017 Seasonal Allergies Seasonal Allergies: No Past Medical History Surgeries: Yes Adenoidectomy, Appendectomy, Bladder Surgery, Cardiac, CABG, Gallbladder, Hysterectomy, Joint Replacement, Orthopedic, Tonsillectomy Respiratory: Yes Asthma, COPD Cardiac: Yes (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, 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, Atrial Fibrillation, Coronary Artery Disease, High Cholesterol, Hypertension Neurological: Yes (HAD BRAIN SURGERY FOR ANEURYSM 2008, dysphagia) Reproductive Disorders: Yes 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 Sexually Transmitted Disease: No Genitourinary: Yes (suprapubic catheter) UTI-Chronic Gastrointestinal: No Gastroesophageal Reflux, Chronic Constipation Musculoskeletal: Yes ( BILAT ROTATOR CUFF SURGERY) Degenerate Disk Disease, Arthritis, Chronic Back Pain Endocrine: Yes Diabetes, Non-Insulin dep Cataract Loss of Vision: Denies Hearing Impairment: Denies Cancer: No Psychosocial: Yes (panic disorder) Anxiety, Depression Integumentary: No Blood Disorders: No Adverse Reaction/Blood Tranf: No Family Medical History Reviewed Nursing Family Hx Cancer 09 SISTER Cancer of colon Cataract 03 MOTHER, Onset:Unknown Family history: Allergy 03 FATHER, Onset:Unknown 03 MOTHER, Onset:Unknown Family history: Arthritis 03 FATHER, Onset:Unknown 03 MOTHER, Onset:Unknown 09 SISTER, Onset:Unknown Family history: Cardiovascular disease 03 FATHER, Onset:Unknown 03 MOTHER, Onset:Unknown 09 BROTHER, Onset:Unknown 09 SISTER, Onset:Unknown Family history: Diabetes mellitus 03 MOTHER, Onset:Unknown Family history: Gastrointestinal disease 03 FATHER, Onset:Unknown Family history: Hypertension 03 MOTHER, Onset:Unknown Family history: Osteoporosis 03 MOTHER, Onset:Unknown Hearing loss 03 FATHER, Onset:Unknown Heart disease 03 FATHER, Onset:Unknown 03 MOTHER, Onset:Unknown 09 BROTHER, Onset:Unknown Hypercholesterolemia 03 MOTHER, Onset:Unknown Malignant neoplasm of lung 09 SISTER, Onset:Unknown Myocardial infarction 09 BROTHER, Onset:Unknown Parkinson's disease Stroke 03 FATHER, Onset:Unknown Thyroid disease Heart Disease, Diabetes Physical Exam-Suspected Sepsis Physical Exam Vital Signs Vital Signs - First Documented 06/18/20 10:48 Temp 36.7 Pulse 101 Resp 18 B/P (MAP) 163/94 (117) Pulse Ox 93 Capillary Refill : Less Than 3 Seconds Blood Pressure Mean: 117 Height, Weight, BMI Height: 5'2.00" Weight: 165lbs. 7.0oz. 74.572244le; 32.00 BMI Method:Stated General Appearance: WD/WN, Mild Distress, Obese HEENT: PERRL/EOMI, TMs Normal, Pharynx Normal Neck: Non Tender, Supple Respiratory: Lungs Clear, Normal Breath Sounds Cardiovascular: No Murmur, Tachycardia Gastrointestinal: Soft; No Distended, No Guarding; Other (periumbilical hernia noted. This reduced with some blood pressure manipulation. Tender in the suprapubic and lower abdominal region) Back: Normal Inspection, No CVA Tenderness, No Vertebral Tenderness Extremity: Normal Range of Motion, Non Tender Neurologic/Psychiatric: Alert, Other (hard of hearing. Answers questions and follows simple commands.) Skin: normal color, warm/dry Focused Exam Lactate Level 06/18/20 10:40: Lactic Acid Level 1.27 Lactic Acid Level Laboratory Tests Test 06/18/20 10:40 Lactic Acid Level 1.27 MMOL/L (0.50-2.00) Progress/Results/Core Measures Suspected Sepsis Recent Fever Within 48 Hours: No Infection Criteria Present: None New/Unexplained Altered Menta: No Sepsis Screen: No Definite Risk SIRS Temperature: Pulse: 101 Respiratory Rate: 18 Laboratory Tests 06/18/20 10:40: White Blood Count 10.4 Blood Pressure 163 /94 Mean: 117 06/18/20 10:40: Lactic Acid Level 1.27 Laboratory Tests 06/18/20 10:40: Creatinine 0.89, INR Comment 1.1, Platelet Count 303, Total Bilirubin 0.4 Results/Orders Lab Results Laboratory Tests Test 06/18/20 10:40 06/18/20 13:34 Range/Units White Blood Count 10.4 4.3-11.0 10^3/uL Red Blood Count 4.94 4.35-5.85 10^6/uL Hemoglobin 14.2 11.5-16.0 G/DL Hematocrit 43 35-52 % Mean Corpuscular Volume 87 80-99 FL Mean Corpuscular Hemoglobin 29 25-34 PG Mean Corpuscular Hemoglobin Concent 33 32-36 G/DL Red Cell Distribution Width 17.5 H 10.0-14.5 % Platelet Count 303 130-400 10^3/uL Mean Platelet Volume 10.0 7.4-10.4 FL Neutrophils (%) (Auto) 73 42-75 % Lymphocytes (%) (Auto) 16 12-44 % Monocytes (%) (Auto) 9 0-12 % Eosinophils (%) (Auto) 2 0-10 % Basophils (%) (Auto) 0 0-10 % Neutrophils # (Auto) 7.5 1.8-7.8 X 10^3 Lymphocytes # (Auto) 1.6 1.0-4.0 X 10^3 Monocytes # (Auto) 0.9 0.0-1.0 X 10^3 Eosinophils # (Auto) 0.2 0.0-0.3 10^3/uL Basophils # (Auto) 0.0 0.0-0.1 10^3/uL Prothrombin Time 14.6 12.2-14.7 SEC INR Comment 1.1 0.8-1.4 Activated Partial Thromboplast Time 32 24-35 SEC Sodium Level 138 135-145 MMOL/L Potassium Level 4.5 3.6-5.0 MMOL/L Chloride Level 104 98-107 MMOL/L Carbon Dioxide Level 23 21-32 MMOL/L Anion Gap 11 5-14 MMOL/L Blood Urea Nitrogen 18 7-18 MG/DL Creatinine 0.89 0.60-1.30 MG/DL Estimat Glomerular Filtration Rate > 60 BUN/Creatinine Ratio 20 Glucose Level 147 H 70-105 MG/DL Lactic Acid Level 1.27 0.50-2.00 MMOL/L Calcium Level 9.5 8.5-10.1 MG/DL Corrected Calcium 9.4 8.5-10.1 MG/DL Total Bilirubin 0.4 0.1-1.0 MG/DL Aspartate Amino Transf (AST/SGOT) 16 5-34 U/L Alanine Aminotransferase (ALT/SGPT) 21 0-55 U/L Alkaline Phosphatase 79 40-136 U/L Total Protein 7.5 6.4-8.2 GM/DL Albumin 4.1 3.2-4.5 GM/DL Urine Color YELLOW Urine Clarity CLEAR Urine pH 5.5 5-9 Urine Specific [place] 1.010 L 1.016-1.022 Urine Protein NEGATIVE NEGATIVE Urine Glucose (UA) NEGATIVE NEGATIVE Urine Ketones NEGATIVE NEGATIVE Urine Nitrite NEGATIVE NEGATIVE Urine Bilirubin NEGATIVE NEGATIVE Urine Urobilinogen 0.2 < = 1.0 MG/DL Urine Leukocyte Esterase 1+ H NEGATIVE Urine RBC (Auto) 3+ H NEGATIVE Urine RBC TNTC H /HPF Urine WBC 5-10 H /HPF Urine Squamous Epithelial Cells RARE /HPF Urine Crystals NONE /LPF Urine Bacteria FEW H /HPF Urine Casts NONE /LPF Urine Mucus NEGATIVE /LPF Urine Culture Indicated CULTURE PENDING My Orders Orders - TARA SOTO MD Cbc With Automated Diff (06/18/20 10:51) Comprehensive Metabolic Panel (06/18/20 10:51) Blood Culture (06/18/20 10:51) Sputum Culture (06/18/20 10:51) Urinalysis (06/18/20 10:51) Urine Culture (06/18/20 10:51) Protime With Inr (06/18/20 10:51) Partial Thromboplastin Time (06/18/20 10:51) Chest 1 View, Ap/Pa Only (06/18/20 10:51) Ed Iv/Invasive Line Start (06/18/20 10:51) Vital Signs Adult Sepsis Patie Q15M (06/18/20 10:51) O2 (06/18/20 10:51) Remove Rings In Anticipation O (06/18/20 10:51) Lactic Acid Analyzer (06/18/20 10:51) Fentanyl Injection (Sublimaze Injection (06/18/20 10:51) Ns Iv 1000 Ml (Sodium Chloride 0.9%) (06/18/20 10:51) Fentanyl Injection (Sublimaze Injection (06/18/20 10:56) Ct Abdomen/Pelvis W (06/18/20 11:31) Iohexol Injection (Omnipaque 350 Mg/Ml 1 (06/18/20 11:45) Received Contrast (Hold Metformin- Contr (06/18/20 11:45) Sodium Chloride Flush (Catheter Flush Sy (06/18/20 11:45) Ns (Ivpb) (Sodium Chloride 0.9% Ivpb Bag (06/18/20 11:45) Fentanyl Injection (Sublimaze Injection (06/18/20 11:58) Fentanyl Injection (Sublimaze Injection (06/18/20 13:11) Ketorolac Injection (Toradol Injection) (06/18/20 13:11) Morphine Injection (Morphine Injection (06/18/20 14:00) Medications Given in ED Current Medications Medications Dose Ordered Sig/Kervin Route Start Time Stop Time Status Last Admin Dose Admin Iohexol 100 ml ONCE ONCE IV 06/18/20 11:45 06/18/20 11:46 DC 06/18/20 11:50 100 ML Morphine Sulfate 4 mg ONCE ONCE IVP 06/18/20 14:00 06/18/20 14:01 DC 06/18/20 14:09 4 MG Sodium Chloride 10 ml NEEDED PRN IV 06/18/20 11:45 06/18/20 11:51 10 ML Sodium Chloride 100 ml ONCE ONCE IV 06/18/20 11:45 06/18/20 11:46 DC 06/18/20 11:51 80 ML Sodium Chloride 1,000 ml @ 0 mls/hr Q0M ONCE IV 06/18/20 10:51 06/18/20 11:00 DC 06/18/20 11:08 0 MLS/HR Vital Signs/I&O 06/18/20 10:48 Temp 36.7 Pulse 101 Resp 18 B/P (MAP) 163/94 (117) Pulse Ox 93 Capillary Refill : Less Than 3 Seconds Blood Pressure Mean: 117 Progress Note : Progress Note Seen and evaluated. IV, labs, UA, blood cultures, lactic acid and chest x-ray ordered. Normal saline 1 L bolus. Fentanyl 50 g IV ordered. Monitor patient. CT abdomen pelvis ordered and repeat fentanyl 50 g IV ordered. 1242: CT complete and no concerning findings. Labs reviewed to this point and no concerning findings. Chest x-ray reviewed. We will get a urine specimen as this may be more the culprit and she does have topical perivaginal and pannus lesions consistent with yeast infection. This may be part of the problem as well. Monitor patient. 1405: UA negative. I was able to reduce the hernia again which seems to help. Patient has received a total of 150 g of fentanyl and 15 mg of Toradol with only minimal relief. I did discuss the case with Dr. Arreguin due to concerns about possible fat incarceration or other concerns related to the hernia. He would like to admit the patient with consult to medicine. Requests we do gauze packing over hernia and suture with OpSite and cover with abdominal binder to see if that helps. Morphine 4 mg IV ordered. 1415: Medicine consulted which is Dr. Cronin on-call for [facility]. 1425: Abdominal binder in place and hernia seems to be staying reduced with packing and binder. Admit, inpatient status. Patient agrees to plan. Diagnostic Imaging Diagonstic Imaging: CT Plain Films/CT/US/NM/MRI: abdomen, pelvis Comments [facility] [place], [place] NAME: JULES REYES [facility] REC#: [id number] PT STATUS: REG ER : 1935 PHYSICIAN: TARA SOTO MD ADMIT DATE: 06/18/20/ER Signed Date of Exam:06/18/20 CT ABDOMEN/PELVIS W EXAMINATION: CT Abdomen and Pelvis with intravenous contrast. TECHNIQUE: Multiple contiguous axial images were obtained through the abdomen and pelvis after the uneventful administration of intravenous contrast. All CT scans use one or more of the following dose optimizing techniques: automated exposure control, MA and/or KvP adjustment based on a patient size and exam type, or iterative reconstruction. HISTORY: Lower abdominal pain. COMPARISON: 04/16/2019 FINDINGS: Limited views of the lower thorax show mild reticulations consistent with mild nonspecific fibrosis. Coronary arteries are calcified. The liver is normal without focal lesion. There is no biliary ductal dilation. Gallbladder is normal. Pancreas is normal. Spleen is normal. Adrenal glands are normal. There are small cysts in both kidneys. No suspicious renal lesions. There is no hydronephrosis. Bladder is decompressed by suprapubic catheter. Visualized bowel is normal in caliber without obstruction or inflammation. There is a large duodenal diverticulum. There is a fat-containing umbilical hernia. It appears similar to prior exam. No free fluid or air. No abdominal or pelvic lymphadenopathy. There is a stable 4.2 cm abdominal aortic aneurysm. 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 Right superficial femoral artery is occluded past its origin. There are no suspicious osseous lesions. There is a right total hip arthroplasty. There is a chronic L3 compression fracture which is mild. IMPRESSION: 1. Fat-containing umbilical hernia is unchanged. 2. Stable 4.2 cm abdominal aortic aneurysm and right common iliac artery aneurysm. Dictated by: Dictated on workstation # [id number] Dict: 06/18/20 1155 Trans: 06/18/20 1204 IMS [id number] Interpreted by: EVELINE BLANCO MD Electronically signed by: EVELINE BLANCO MD 06/18/20 1204 Reviewed: Reviewed by Me Diagonstic Imaging: Xray Plain Films/CT/US/NM/MRI: chest Comments [facility] [place] [place] NAME: JULES REYES [facility] REC#: [id number] PT STATUS: REG ER : 1935 PHYSICIAN: TARA SOTO MD ADMIT DATE: 06/18/20/ER Signed Date of Exam:06/18/20 CHEST 1 VIEW, AP/PA ONLY EXAMINATION: Chest 1 view. HISTORY: Abdominal pain. COMPARISON: 01/14/2020 FINDINGS: Median sternotomy wires are aligned. There are coronary artery bypass graft markers. Heart is mildly enlarged. No pleural effusion or pneumothorax is seen. There is mild pulmonary edema. IMPRESSION: 1. Mild edema and enlarged heart. Dictated by: Dictated on workstation # [id number] Dict: 06/18/20 1151 Trans: 06/18/20 1204 IMS [id number] Interpreted by: EVELINE BLANCO MD Electronically signed by: EVELINE BLANCO MD 06/18/20 1204 Departure Communication (Admissions) Time/Spoke to Admitting Phy: 14:05 Time/Spoke to Consulting Phy: 14:15 Impression Primary Impression: Umbilical hernia without mention of obstruction or gangrene Additional Impression: Intractable abdominal pain Disposition: ADMITTED INPATIENT Condition: Stable Admissions Decision to Admit Reason: Admit from ER (General) Decision to Admit/Date: Jun 18, 2020 Time/Decision to Admit Time: 14:05 Departure-Patient Inst. Referrals: SHANIQUE VEGA MD (PCP/Family) Primary Care Physician TARA SOTO MD Jun 18, 2020 11:21
[2020-06-18 11:24] LABS: ALKALINE PHOSPHATASE 79 U/L (40-136); CREATININE SERUM 0.89 MG/DL (0.60-1.30); GFR ESTIMATED > 60
[2020-06-18 11:25] LABS: BUN/CREATININE RATIO 20
[2020-06-18 11:27] LABS: ALANINE AMINOTRANSFERASE 21 U/L (0-55)
[2020-06-18] MEDS ORDERED: IOHEXOL 350 MG/ML 100 ML (OMNIPAQUE 350) VIAL IV ONE (11:45)
[2020-06-18] MEDS ORDERED: CATHETER FLUSH 10 ML SYR IV PRN (11:45)
[2020-06-18] MEDS ORDERED: HOLD METFORMIN - RECEIVED CONTRAST 20 ML VIAL IV SCH (11:45)
[2020-06-18] MEDS ORDERED: NS 100 ML (IVPB) BAG IV ONE (11:45)
--- NOTE | 2020-06-18 11:58 | Diagnostic Imaging Report ---
EXAMINATION: Chest 1 view. HISTORY: Abdominal pain. COMPARISON: 01/14/2020 FINDINGS: Median sternotomy wires are aligned. There are coronary artery bypass graft markers. Heart is mildly enlarged. No pleural effusion or pneumothorax is seen. There is mild pulmonary edema. IMPRESSION: 1. Mild edema and enlarged heart. Dictated by: Dictated on workstation # [id number]
--- NOTE | 2020-06-18 12:05 | Diagnostic Imaging Report ---
EXAMINATION: CT Abdomen and Pelvis with intravenous contrast. TECHNIQUE: Multiple contiguous axial images were obtained through the abdomen and pelvis after the uneventful administration of intravenous contrast. All CT scans use one or more of the following dose optimizing techniques: automated exposure control, MA and/or KvP adjustment based on a patient size and exam type, or iterative reconstruction. HISTORY: Lower abdominal pain. COMPARISON: 04/16/2019 FINDINGS: Limited views of the lower thorax show mild reticulations consistent with mild nonspecific fibrosis. Coronary arteries are calcified. The liver is normal without focal lesion. There is no biliary ductal dilation. Gallbladder is normal. Pancreas is normal. Spleen is normal. Adrenal glands are normal. There are small cysts in both kidneys. No suspicious renal lesions. There is no hydronephrosis. Bladder is decompressed by suprapubic catheter. Visualized bowel is normal in caliber without obstruction or inflammation. There is a large duodenal diverticulum. There is a fat-containing umbilical hernia. It appears similar to prior exam. No free fluid or air. No abdominal or pelvic lymphadenopathy. There is a stable 4.2 cm abdominal aortic aneurysm. 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 Right superficial femoral artery is occluded past its origin. There are no suspicious osseous lesions. There is a right total hip arthroplasty. There is a chronic L3 compression fracture which is mild. IMPRESSION: 1. Fat-containing umbilical hernia is unchanged. 2. Stable 4.2 cm abdominal aortic aneurysm and right common iliac artery aneurysm. Dictated by: Dictated on workstation # [id number]
[2020-06-18] MEDS ORDERED: KETOROLAC 30 MG/ML VIAL IVP STA (13:11)
[2020-06-18 13:41] LABS: BILIRUBIN,URINE NEGATIVE (NEGATIVE); CLARITY,URINE CLEAR; COLOR,URINE YELLOW; GLUCOSE, URINE (UA) NEGATIVE (NEGATIVE); KETONES,URINE NEGATIVE (NEGATIVE); LEUKOCYTE ESTERASE ,URINE 1+ (NEGATIVE); NITRITE,URINE NEGATIVE (NEGATIVE); PH,URINE 5.5 (5-9); PROTEIN,URINE NEGATIVE (NEGATIVE)
[2020-06-18] MEDS ORDERED: morphine INJ 10 MG/ML 1ML (SYR OR VIAL) IVP ONE (14:00)
[2020-06-18 14:02] LABS: RBC,URINE TNTC /HPF
[2020-06-18 14:03] LABS: BACTERIA,URINE FEW /HPF; SQUAMOUS EPITHELIAL CELL,UR RARE /HPF
--- NOTE | 2020-06-18 14:26 | NUR ---
abdominal binder placed on pt at this time.
--- OUTSIDE RECORDS SUMMARY | 2020-06-18 14:30 | XMS REPORT | Clinical Summary ---
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 If you d o not see the information that you expected, contact Release of Information in [facility] [employer] Information Management department at [phone] for further assistan ce in locating additional records.[facility] Allergies Comments Active Allergy Reactions Severity Noted Date Per MAR Sulfamethoxazole-Trimetho UNKNOWN Low 09/18 prim Per MAR Diphenhydramine-Zinc UNKNOWN Low 7 Acetate Per MAR Hydrochlorothiazide UNKNOWN Low 09/27/2017 [...] (ESTRACE) 0.01 Insert or 42.5 g 11 0 03/20/ % (0.1 mg/g) vaginal Apply to 7 [...] 09/20/2017 Overview: Added automatically from request for [facility]here[facility] [id number] Mixed stress and urge urinary incontinence 7 Overview: Longstanding hx of JOE (UUI>MAXWELL), OAB, ISD, urinary retention who is s/p PVS (Solyx) by Dr. Andrews on 11/27/16; M acroplastique injection 02/12/17. Trailed [facility] without succ ess. 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 Carlisle. Still with JOE (UUI>MAXWELL). Exam with moderate vulvovaginal atrophy, + leak w ith valsalva. PVR 150 mL UDS (09/19/17) with small capacity, rete ntion, DO throughout filling until end; hypotonic bladder, no stress leak. Cystoscopy was unremarkable. L ast Assessment & Plan: - OR for SPT 10/04/17 - anticholinergic to be added once SPT placed Social History Date Tobacco Use Types Packs/Day Years Used Former Smoker Cigarettes 1 25 Smokeless Tobacco: Never Used Drinks/Week oz/Week Comments Alcohol Use 0 Standard drinks or equivalent 0.0 No Sex Assigned at Date Recorded Not on file Industry Job Start Date Occupation Not on file Not on file Not on file Travel End Travel History Travel Start No recent travel history available. 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 audra - reg cuff Blood Pressure 77 09/27/2017 10:47 AM AWARD MACHINE OPERATOR Pulse 36.6 C (97.9 F) 09/27/2017 10:47 AM AWARD MACHINE OPERATOR Temperature - - Respiratory Rate 96% 09/27/2017 10:47 AM AWARD MACHINE OPERATOR Oxygen Saturation - - Inhaled Oxygen Concentration 77.2 kg (170 lb 3.2 oz) 09/27/2017 10:47 AM AWARD MACHINE OPERATOR Weight 157.5 cm (5' 2") 09/27/2017 10:47 AM AWARD MACHINE OPERATOR Height 31.13 09/27/2017 10:47 AM AWARD MACHINE OPERATOR Body Mass Index Plan of Treatment Health Maintenance Due Date Last Done Comments MEDICARE ANNUAL WELLNESS 1935 VISIT DTAP/TDAP VACCINES (1 - 1955 Tdap) PHYSICAL (COMPREHENSIVE) 1955 EXAM SHINGLES RECOMBINANT 1987 VACCINE (1 of 2) OSTEOPOROSIS 2002 SCREENING/MONITORING PNEUMONIA (PPSV23) 2002 VACCINE (1 of 1 - PPSV23) INFLUENZA VACCINE 08/18/2020 08/06/2013 Results Not on filefrom Last 3 Months Insurance Type Payer Benefit Subscriber ID Effective Phone Address Plan / Dates Group Medicare MEDICARE MEDICARE xxxxxxxxxx 1989-P PART A AND resent B Medicaid [place] [employer] xxxxxxxxxxx 2010- STATE Present HEALTH Advance 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
--- OUTSIDE RECORDS SUMMARY | 2020-06-18 14:32 | XMS REPORT ---
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 Name Role Phone MARIA DE JESUS Sanchez Unavailable PROBLEMS Type Condition ICD9-CM Code MLP64-MS Code Onset Dates Condition S tatus SNOMED Code Problem Hypertension I10 Active 7955902 3 Problem Hyperlipidemia E78.5 Active 01190 004 Problem Coronary artery disease I25.10 Active 25731979 Problem Low back pain M54.5 Active 038599 009 Problem Other chronic pain G89.29 Active 8 9115302 Problem Ventral hernia without obstruction or gangrene K43 .9 Active 653470821 Problem Type 2 diabetes mellitus wit hout complication, without long-term current use of insulin E11.9 Active 067534018 Problem Anxiety F41.9 Active 33169269 Problem Peripheral vascular disease I73.9 Ac tive 363359116 Problem Insomnia G47.00 Active 734510247 Problem Microcytic anemia D50.9 Active 23 1439721 Problem Pharyngeal dysphagia R13.13 Active 37460758911911 Problem Other iron deficiency anemia D50.8 A ctive 67889578 Problem Reactive depression F32.9 Active 68553315 Problem Paroxysmal atrial fibrillation I48.0 Active 117166908 Problem 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 Active 08016029 Problem Encounter for suprapubic catheter care Z43.5 Active 042389766 Problem Neurogenic bladder N31.9 Active 3 [id number] ALLERGIES No Information ENCOUNTERS Encounter Location Date Diagnosis [facility] [place] [address] [facility] [place] [place] [id number] [address] [place] [phone] May, [facility] [place] [address] [facility] [place] [id number] [address] [place] [id number] May, Strain of right shoulder, scherer bsequent encounter S46.911D and Anxiety F41.9 [facility] [place] [address] [id number] [address] [place] [id number] 17 Apr, 2020 Anxiety F41.9 and Strain of right shoulder, subsequent encounter S46.911D [facility], [place] [address] [id number] [address] [place] [id number] 04 Apr, 2020 [facility] [place] [address] [id number] [address] [place] [id number] March, [facility] [place] [address] [id number] [address] [place] [id number] March, Anxiety F41.9 and Strain of right shoulder, subsequent encounter S46.911D [facility] [place] [address] [id number] [address] [place] [address] Feb, Anxiety F41.9 and Strain of right shoulder, subsequent encounter S46.911D [facility], [place] [address] [id number] [address] [place] [phone] Jan, Anxiety F41.9 and Strain of right shoulder, subsequent encounter S46.911D [facility] [place] [address] [id number] [address] [place] [phone] Jan, [facility] [address] [place] [id number] Jan, Neurogenic bladder N31.9 [facility], [place] [address] [id number] [address] [place] [id number] Dec, [facility] [place] [address] [id number] [address] [place] [phone] Dec, [facility] [place] [address] [id number] [address] [place] [id number] 24 Dec, 2019 Anxiety F41.9 and Strain of right shoulder, subsequent encounter S46.911D [facility] [place] [address] [id number] [address] [place] [id number] 10 Dec, 2019 Other iron deficiency anemia D50.8 [facility], [place] [address] [id number] [address] [place] [id number] Dec, Via [facility] [address] [place] [id number] Dec, Encounter for suprapubic catheter care Z 43.5 and Microcytic anemia D50.9 [facility] [address] [id number] [address] [place] [id number] Dec, [facility] [address] [id number] [address] [place] [id number] Nov, Anxiety F41.9 and Strain of right shoulder, subsequent encounter S46.911D [facility] [facility] [address] [id number] [address] [place] [id number] Nov, Hypertension I10 Via [facility] [address] [place] [id number] Nov, Pneumonia of both lungs due to infectiou s organism, unspecified part of lung J18.9 and Suprapubic catheter Z93.59 [facility] [address] [id number] [address] [place] [id number] Nov, Hypertension I10 and Reactiv e depression F32.9 [facility] [address] [id number] [address] [place] [phone] Oct, Strain of right shoulder, scherer bsequent encounter S46.911D and Anxiety F41.9 [facility] [facility] [address] [id number] [address] [place] [phone] Oct, Via [facility] [address] [place] [id number] Oct, Suprapubic catheter Z93.59 and Candidias is, intertriginous B37.2 [place] [address] [id number] [address] [place] [id number] Oct, Suprapubic catheter Z93.59 [place] [address] [id number] [address] [place] [phone] Oct, Anxiety F41.9 and Strain of right shoulder, subsequent encounter S46.911D [facility] [place] [address] [id number] [address] [place] [phone] Sep, [facility] [place] [address] [id number] [address] [place] [phone] Sep, [facility] [place] [address] [id number] [address] [place] [id number] Sep, Via [facility] [address] [place] [id number] Sep, Suprapubic catheter Z93.59 [facility] [place] [address] [id number] [address] [place] [phone] Sep, Anxiety F41.9 and Strain of right shoulder, subsequent encounter S46.911D [facility] [place] [address] [id number] [address] [place] [phone] Aug, [facility], [place] [address] [id number] [address] [place] [phone] Aug, [facility] [place] [address] [id number] [address] [place] [phone] Aug, Anxiety F41.9 and Strain of right shoulder, subsequent encounter S46.911D [facility] [address] [place] [id number] Aug, Suprapubic catheter Z93.59 [facility] [place] [address] [id number] [address] [place] [phone] Jul, Strain of right shoulder, scherer bsequent encounter S46.911D and Anxiety F41.9 [facility] [place] [address] [id number] [address] [place] [id number] Jul, Anxiety F41.9 [facility] [place] [address] [id number] [address] [place] [phone] Jun, [facility] [place] [address] [id number] [address] [place] [phone] Jun, [facility] [place] [address] [id number] [address] [place] [id number] Jun, [facility] [facility] [address] [id number] [address] [place] [id number] Jun, Strain of right shoulder, scherer bsequent encounter S46.911D [facility] [address] [id number] [address] [place] [id number] Jun, Strain of right shoulder, scherer bsequent encounter S46.911D [place] [address] [id number] [address] [place] [phone] Jun, Anxiety F41.9 Via [facility] [address] [place] [id number] Jun, Neurogenic bladder N31.9 and Anxiety F41 .9 Via [facility] [address] [place] [id number] May, Anxiety F41.9 [place] [address] [id number] [address] [place] [phone] May, Dysuria R30.0 [place] [facility] [address] [id number] [address] [place] [id number] May, Strain of right shoulder, scherer bsequent encounter S46.911D and Anxiety F41.9 [place] [address] [id number] [address] [place] [phone] Apr, Via [facility] [employer] [address] [place] [id number] Apr, Strain of right shoulder, subsequent enc ounter S46.911D [place] [address] [id number] [address] [place] [id number] Apr, Strain of right shoulder, scherer bsequent encounter S46.911D and Anxiety F41.9 Via [facility] [employer] [address] [place] [id number] Apr, Type 2 diabetes mellitus without complic ation, without long-term current use of insulin E11.9 and Neurogenic bladder N31.9 Via [facility] [address] [place] [id number] Apr, Strain of right shoulder, subsequent enc ounter S46.911D ; History of GI bleed Z87.19 ; Neurogenic bladder N31.9 and Reactive depression F32.9 [facility], [place] [address] [id number] [address] [place] [id number] 10 Apr, 2019 Acute pain of left shoulder M25.512 [facility], [place] [address] [id number] [address] [place] [phone] Apr, [facility] [place] [address] [id number] [address] [place] [phone] Apr, Anxiety F41.9 and Other slip mixer 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 Via [facility] [address] [place] [id number] March, Gastrointestinal hemorrhage associated w ith acute gastritis K29.01 [facility] [place] [address] [id number] [address] [place] [id number] March, Via [facility] [address] [place] [id number] March, Bronchitis J40 [facility] [place] [address] [id number] [address] [place] [phone] March, Cough R05 [facility] [place] [address] [id number] [address] [place] [id number] March, Other chronic pain G89.29 [facility], [place] [address] [id number] [address] [place] [id number] March, Anxiety F41.9 [facility], [place] [address] [id number] [address] [place] [phone] March, [facility] [place] [address] [id number] [address] [place] [phone] Feb, Other chronic pain G89.29 [facility] [place] [address] [id number] [address] [place] [phone] Feb, Anxiety F41.9 [facility] [place] [address] [id number] [address] [place] [phone] Feb, Other chronic pain G89.29 Via [facility] [address] [place] [id number] Feb, Neurogenic bladder N31.9 and Suprapubic catheter Z93.59 [facility] [place] [address] [id number] [address] [place] [phone] Jan, Anxiety F41.9 [facility] [place] [address] [id number] [address] [place] [id number] Dec, Anxiety F41.9 [facility] [place] [address] [id number] [address] [place] [phone] Dec, Other chronic pain G89.29 an d Anxiety F41.9 [facility], [place] [address] [id number] [address] [place] [phone] Dec, Via [employer] [address] [place] [id number] Dec, Neurogenic bladder N31.9 and Suprapubic catheter Z93.59 [facility] [place] [address] [id number] [address] [place] [phone] Nov, Other chronic pain G89.29 an d Anxiety F41.9 [facility], [place] [address] [id number] [address] [place] [phone] Nov, Via [facility] [address] [place] [id number] Nov, Suprapubic catheter Z93.59 [facility] [place] [address] [id number] [address] [place] [id number] Oct, Other chronic pain G89.29 an d Anxiety F41.9 [facility], [place] [address] [id number] [address] [place] [phone] Oct, [facility] [place] [address] [id number] [address] [place] [id number] Oct, Suprapubic catheter Z93.59 [facility] [place] [address] [id number] [address] [place] [phone] Oct, Via [employer] [address] [place] [id number] Oct, [facility] [place] [address] [id number] [address] [place] [phone] Oct, Anxiety F41.9 [facility] [place] [address] [id number] [address] [place] [id number] Oct, Anxiety F41.9 Via [employer] [address] [place] [id number] Oct, Other chronic pain G89.29 [facility] [place] [address] [id number] [address] [place] [id number] Sep, Other chronic pain G89.29 Via [employer] [address] [place] [id number] Sep, Suprapubic catheter Z93.59 and Cervicalg ia M54.2 [facility] [place] [address] [id number] [address] [place] [id number] Sep, [facility] [place] [address] [id number] [address] [place] [phone] Sep, [facility] [place] [address] [id number] [address] [place] [id number] Sep, Via [employer] [address] [place] [id number] Aug, Cystitis N30.90 [facility] [place] [address] [id number] [address] [place] [phone] Aug, [facility] [place] [address] [id number] [address] [place] [id number] Aug, Other chronic pain G89.29 [facility] [place] [address] [id number] [address] [place] [phone] Aug, Via [facility] [address] [place] [id number] Aug, Encounter for suprapubic catheter care Z 43.5 [facility] [place] [address] [id number] [address] [place] [phone] Jul, Via [facility] [address] [place] [id number] Jul, [facility] [place] [address] [id number] [address] [place] [id number] Jul, Other chronic pain G89.29 [facility] [place] [address] [id number] [address] [place] [phone] Jul, [facility] [place] [address] [id number] [address] [place] [phone] Jul, Via [facility] [address] [place] [id number] Jun, 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 [facility] [place] [address] [id number] [address] [place] [phone] Jun, Other chronic pain G89.29 [facility] [place] [address] [id number] [address] [place] [phone] Jun, Via [facility] [address] [place] [id number] May, Anxiety F41.9 ; Type 2 diabetes mellitus without complication, without long-term current use of insulin E11.9 ; Hypertension I10 ; Low back pain M54.5 ; Paroxysmal atrial fibrillation I48.0 and 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 [facility] [place] [address] [id number] [address] [place] [id number] May, Other chronic pain G89.29 Via [facility] [address] [place] [id number] May, Low back pain M54.5 [facility] [place] [address] [id number] [address] [place] [id number] May, [facility] [place] [address] [id number] [address] [place] [id number] Apr, Other chronic pain G89.29 [facility] [place] [address] [id number] [address] [place] [id number] Apr, [facility] [place] [address] [id number] [address] [place] [phone] Apr, Via [facility] [address] [place] [id number] Apr, Closed compression fracture of L3 lumbar vertebra with routine healing, subsequent encounter S32.030D [facility] [address] [place] [id number] Apr, Low back pain M54.5 [facility] [address] [place] [id number] Apr, Coccydynia M53.3 [facility] [place] [address] [id number] [address] [place] [phone] March, [facility] [place] [address] [id number] [address] [place] [id number] March, Other chronic pain G89.29 [facility] [place] [address] [id number] [address] [place] [id number] March, [facility] [place] [address] [id number] [address] [place] [phone] March, [facility] [place] [address] [id number] [address] [place] [phone] Feb, [facility] [place] [address] [id number] [address] [place] [phone] Feb, Other chronic pain G89.29 Via [facility] [address] [place] [id number] Feb, Other chronic pain G89.29 and Anxiety F4 1.9 [facility] [place] [address] [id number] [address] [place] [id number] Feb, [facility] [place] [address] [id number] [address] [place] [phone] Jan, [facility] [place] [address] [facility] [place] [id number] [address] [place] [phone] Jan, [facility] [place] [address] [facility] [place] [id number] [address] [place] [phone] Jan, [facility] [place] [address] [facility] [place] [id number] [address] [place] [phone] Jan, [facility] [place] [address] [facility] [place] [id number] [address] [place] [phone] Dec, [facility] [employer] [facility] [address] [place] [id number] Dec, Peripheral vascular disease I73.9 ; 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 ; Other chronic pain G89.29 ; Anxiety F41.9 ; Reactive depression F32.9 ; Insomnia G47.00 and Type 2 diabetes mellitus without complication, without long-term current use of insulin E11.[address] [id number] [address] Nov, [facility] [address] [id number] [place] [id number] Nov, Anxiety F41.9 [facility] [place] [address] [facility] [place] [place] [id number] [address] [place] [phone] Nov, [facility] [address] [id number] [place] [id number] Nov, Anxiety F41.9 [facility] [employer] [facility] [facility] [address] [place] [id number] Nov, Status post surgery Z98.890 ; Confused R 41.0 ; Anxiety F41.9 and Other chronic pain G89.29 [facility] [address] [id number] [place] [id number] Nov, Other chronic pain G89.29 [facility] [place] [address] [facility] [place] [place] [id number] [address] [place] [phone] Oct, [facility] [address] [id number] [place] [id number] Oct, Other chronic pain G89.29 [facility] [place] [address] [id number] [address] [place] [address], [place] [address] Oct, Anxiety F41.9 [facility] [address] [id number] [place] [id number] Sep, Other chronic pain G89.29 [facility] [address] [id number] [place] [id number] Sep, Via [facility] [address] [place] [id number] Aug, Dysuria R30.0 and Anxiety F41.9 [facility] [place] [address] [id number] [address] [place] [address], [place] [address] Aug, [facility] [address] [id number] [place] [id number] Aug, Other chronic pain G89.29 [facility], [place] [address] [id number] [address] [place] [address], [place] [address] Jul, Other chronic pain G89.29 [facility] [address] [id number] [place] [id number] Jun, [facility] [address] [id number] [place] [id number] Jun, Other chronic pain G89.29 [facility], [place] [address] [id number] [address] [place] [address], [place] [phone] Jun, [facility], [place] [address] [id number] [address] [place] [phone] May, Other chronic pain G89.29 [facility], [place] [address] [id number] [address] [place] [address], [place] [address] Apr, Other chronic pain G89.29 [facility] [address] [place] [id number] Apr, Reactive depression F32.9 and Pharyngeal dysphagia R13.13 [facility], [place] [address] [facility] [place] [id number] [address] [place] [phone] Apr, Urinary tract infection with out hematuria, site unspecified N39.0 [facility], [place] [address] [facility] [place] [id number] [address] [place] [id number] March, Other chronic pain G89.29 [facility], [place] [address] [id number] [address] [place] [id number] Feb, Other chronic pain G89.29 [facility] [place] [address] [facility] [place] [id number] [address] [place] [phone] Feb, [facility] [address] [id number] [place] [id number] Feb, Via [facility] [address] [place] [id number] Feb, Dysuria R30.0 and Ventral hernia without obstruction or gangrene K43.9 [facility], [place] [address] [facility] [place] [id number] [address] [place] [phone] Jan, Other chronic pain G89.29 [facility] [id number] [place] [id number] Dec, Other chronic pain G89.29 [facility] [place] [address] [facility] [place] [id number] [address] [place] [phone] Nov, Other chronic pain G89.29 [facility] [address] [place] [id number] Nov, Lymphadenitis I88.9 [facility], [place] [address] [facility] [place] [id number] [address] [place] [id number] Nov, Other chronic pain G89.29 [facility], [place] [address] [id number] [address] [place] [phone] Nov, [facility] [address] [id number] [place] [id number] Nov, Other chronic pain G89.29 [facility] [address] [place] [id number] Oct, Low back pain M54.5 ; Hypertension I10 a nd Type 2 diabetes mellitus without complication, without long-term current use of insulin E11.9 [facility] [place] [address] [id number] [address] [place] [phone] Oct, [facility], [place] [address] [id number] [address] [place] [phone] Oct, [facility] [place] [address] [id number] [address] [place] [phone] Oct, [facility], [place] [address] [id number] [address] [place] [phone] Oct, [facility], [place] [address] [id number] [address] [place] [phone] Sep, [facility] [place] [address] [id number] [address] [place] [phone] Sep, [facility], [place] [address] [id number] [address] [place] [phone] Aug, Other chronic pain G89.29 [facility] [place] [address] [id number] [address] [place] [phone] Jul, [facility], [place] [address] [id number] [address] [place] [phone] Jul, [facility], [place] [address] [id number] [address] [place] [phone] Jul, [facility], [place] [address] [id number] [address] [place] [phone] Jun, [facility], [place] [address] [id number] [address] [place] [phone] Jun, [facility] [address] [place] [id number] Jun, Low back pain M54.5 ; Other chronic pain G89.29 and Coronary artery disease I25.10 [facility], [place] [address] [id number] [address] [place] [phone] 08 Jun, 2016 [facility], [place] [address] [id number] [address] [place] [phone] May, [facility], [place] [address] [id number] [address] [place] [id number] 15 May, 2016 [facility], [place] [address] [id number] [address] [place] [phone] May, Other chronic pain G89.29 [facility], [place] [address] [id number] [address] [place] [phone] May, [facility], [place] [address] [id number] [address] [place] [phone] Apr, [facility], [place] [address] [id number] [address] [place] [id number] 17 Apr, 2016 Acute cystitis without hemat uria N30.00 [facility], [place] [address] [id number] [address] [place] [id number] 16 Apr, 2016 Acute cystitis without hemat uria N30.00 ; Coronary artery disease I25.10 ; Low back pain M54.5 and Other chronic pain G89.29 [facility], [place] [address] [id number] [address] [place] [phone] Apr, Other chronic pain G89.29 [facility], [place] [address] [id number] [address] [place] [phone] March, Other chronic pain G89.29 [facility], [place] [address] [id number] [address] [place] [id number] 18 Feb, 2016 [facility], [place] [address] [id number] [address] [place] [phone] 15 Feb, 2016 Arthritis M19.90 [facility], [place] [address] [id number] [address] [place] [phone] Feb, [facility], [place] [address] [id number] [address] [place] [phone] Jan, [facility], [place] [address] [id number] [address] [place] [phone] Jan, [facility], [place] [address] [id number] [address] [place] [phone] Jan, Other chronic pain G89.29 [facility], [place] [address] [id number] [address] [place] [id number] Jan, Hypertension I10 ; Coronary artery disease I25.10 and Insomnia G47.00 [facility], [place] [address] [id number] [address] [place] [phone] Jan, [facility], [place] [address] [id number] [address] [place] [phone] Dec, Right hip pain M25.551 [facility], [place] [address] [id number] [address] [place] [phone] Dec, [facility], [place] [address] [id number] [address] [place] [phone] Dec, [facility], [place] [address] [id number] [address] [place] [phone] Dec, [facility], [place] [address] [id number] [address] [place] [id number] Dec, Other chronic pain G89.29 [facility], [place] [address] [id number] [address] [place] [id number] Dec, [facility], [place] [address] [id number] [address] [place] [phone] Nov, [facility], [place] [address] [id number] [address] [place] [phone] Nov, Other chronic pain G89.29 [facility], [place] [address] [id number] [address] [place] [phone] Nov, Right hip pain M25.551 and C oronary artery disease I25.10 [facility], [place] [address] [id number] [address] [place] [id number] Nov, Other chronic pain G89.29 [facility], [place] [address] [id number] [address] [place] [id number] Oct, [facility], [place] [address] [id number] [address] [place] [phone] Oct, [facility], [place] [address] [id number] [address] [place] [phone] Sep, [facility], [place] [address] [id number] [address] [place] [phone] Sep, [facility], [place] [address] [id number] [address] [place] [phone] Aug, [facility], [place] [address] [id number] [address] [place] [id number] Aug, Hypertension I10 ; Coronary artery disease I25.10 and Arthritis M19.90 [facility], [place] [address] [id number] [address] [place] [phone] Jun, [facility], [place] [address] [id number] [address] [place] [phone] Jun, Essential hypertension, jayson gn 401.1 ; Other chronic pain 338.29 and Chronic airway obstruction, not elsewhere classified 496 [facility], [place] [address] [id number] [address] [place] [phone] Jun, [facility], [place] [address] [id number] [address] [place] [phone] Jun, [facility], [place] [address] [id number] [address] [place] [phone] Jun, [facility], [place] [address] [id number] [address] [place] [phone] May, [facility], [place] [address] [id number] [address] [place] [address] [place] [address] May, [facility] [address] [id number] [address] [place] [address], [place] [address] Apr, [facility] [address] [id number] [address] [place] [address], [place] [address] Apr, [facility] [address] [id number] [address] [place] [address], [place] [address] Apr, [facility] [address] [id number] [address] [place] [address], [place] [address] March, [facility] [address] [id number] [address] [place] [address], [place] [address] March, [facility] [address] [id number] [address] [place] [address], [place] [address] March, [facility] [address] [id number] [address] [place] [address], [place] [address] March, [facility] [address] [id number] [address] [place] [address], [place] [address] March, Sialadenitis 527.2 [facility] [address] [id number] [address] [place] [address], [place] [address] Feb, [facility], [place] [address] [id number] [address] [place] [address], [place] [address] Feb, [facility] [address] [id number] [address] [place] [address], [place] [address] Feb, [facility] [address] [id number] [address] [place] [address], [place] [address] Feb, [facility] [address] [id number] [address] [place] [address], [place] [address] Feb, [facility] [address] [id number] [address] [place] [address], [place] [address] Jan, [facility] [address] [id number] [address] [place] [address], [place] [address] Jan, [facility] [address] [id number] [address] [place] [address], [place] [address] Jan, [facility] [address] [id number] [address] [place] [address], [place] [address] Jan, [facility] [address] [id number] [address] [place] [address], [place] [address] Jan, [facility] [address] [id number] [address] [place] [address], [place] [address] Jan, [facility] [address] [id number] [address] [place] [address], [place] [address] Dec, [facility] [address] [id number] [address] [place] [address], [place] [address] Dec, 2014 [facility] [address] [id number] [address] [place] [address], [place] [address] Dec, [facility] [address] [id number] [address] [place] [address], [place] [address] Dec, 2014 [facility] [address] [id number] [address] [place] [address], [place] [address] Dec, [facility] [address] [id number] [address] [place] [address], [place] [address] Dec, [facility] [address] [id number] [address] [place] [address], [place] [address] Nov, [facility] [address] [id number] [address] [place] [address], [place] [address] Nov, [facility] [address] [id number] [address] [place] [address], [place] [address] Nov, [facility] [address] [id number] [address] [place] [address], [place] [address] Nov, [facility] [address] [id number] [address] [place] [address], [place] [address] Nov, [facility] [address] [id number] [address] [place] [address], [place] [address] Nov, [facility] [address] [id number] [address] [place] [address], [place] [address] Nov, [facility] [address] [id number] [address] [place] [address], [place] [address] Nov, [facility] [address] [id number] [address] [place] [address], [place] [address] Nov, [facility] [address] [id number] [address] [place] [address], [place] [address] Nov, [facility] [address] [id number] [address] [place] [address], [place] [address] Nov, [facility] [address] [id number] [address] [place] [address], [place] [address] Nov, [facility] [address] [id number] [address] [place] [address], [place] [address] Nov, [facility] [address] [id number] [address] [place] [address], [place] [address] Nov, [facility] [address] [id number] [address] [place] [address], [place] [address] Oct, [facility] [address] [id number] [address] [place] [address], [place] [address] Oct, [facility] [address] [id number] [address] [place] [address], [place] [address] Oct, [facility] [address] [id number] [address] [place] [address], [place] [address] 18 Oct, 2014 [facility] [address] [id number] [address] [place] [address], [place] [address] 18 Oct, 2014 [facility] [address] [id number] [address] [place] [address], [place] [address] 17 Oct, 2014 [facility] [address] [id number] [address] [place] [address], [place] [address] Oct, [facility] [address] [id number] [address] [place] [address], [place] [address] Oct, [facility] [address] [id number] [address] [place] [address], [place] [address] Oct, [facility] [address] [id number] [address] [place] [address], [place] [address] Sep, [facility] [address] [id number] [address] [place] [address], [place] [address] Sep, [facility] [address] [id number] [address] [place] [address], [place] [address] Sep, [facility] [address] [id number] [address] [place] [address], [place] [address] Sep, [facility] [address] [id number] [address] [place] [address], [place] [address] Sep, [facility] [address] [id number] [address] [place] [address], [place] [address] Sep, [facility] [address] [id number] [address] [place] [address], [place] [address] Sep, [facility] [address] [id number] [address] [place] [address], [place] [address] Sep, [facility] [address] [id number] [address] [place] [address], [place] [address] Sep, [facility] [address] [id number] [address] [place] [address], [place] [address] Sep, [facility] [address] [id number] [address] [place] [address], [place] [address] Sep, [facility] [address] [id number] [address] [place] [address], [place] [address] Sep, [facility] [address] [id number] [address] [place] [address], [place] [address] Aug, [facility] [address] [id number] [address] [place] [address] 30 Aug, 2014 [facility] [address] [id number] [address] [place] [address], [place] [address] 29 Aug, 2014 [facility] [address] [id number] [address] [place] [address], [place] [address] 29 Aug, 2014 [facility] [address] [id number] [address] [place] [address], [place] [address] 28 Aug, 2014 [facility] [address] [id number] [address] [place] [address], [place] [address] 28 Aug, 2014 [facility] [address] [id number] [address] [place] [address], [place] [address] 17 Aug, 2014 [facility] [address] [id number] [address] [place] [address], [place] [address] 17 Aug, 2014 [facility] [address] [id number] [address] [place] [address], [place] [address] 30 Jul, 2013 [facility] [address] [id number] [address] [place] [address], [place] [address] 30 Sep, 2013 [facility] [address] [id number] [address] [place] [address], [place] [address] 30 Sep, 2013 [facility] [address] [id number] [address] [place] [address], [place] [address] 30 Sep, 2013 [facility] [address] [id number] [address] [place] [address], [place] [address] 25 Sep, 2013 [facility] [address] [id number] [address] [place] [address] 25 Sep, 2013 [facility] [address] [id number] [address] [place] [address], [place] [address] 15 Sep, 2013 [facility] [address] [id number] [address] [place] [address], [place] [address] 15 Sep, 2013 [facility] [address] [id number] [address] [place] [address], [place] [address] 11 Jul, 2013 [facility] [address] [id number] [facility] [place] [address] Jul, [facility] [address] [id number] [facility] [place] [address] Jun, [facility] [address] [id number] [facility] [place] [address] Jun, [facility] [address] [id number] [address] [place] [address], [place] [address] Jun, [facility] [address] [id number] [address] [place] [address], [place] [address] Jun, [facility] [address] [id number] [address] [place] [address], [place] [address] Jun, [facility] [address] [id number] [address] [place] [address], [place] [address] Jun, [facility] [address] [id number] [address] [place] [address], [place] [address] Jun, [facility] [address] [id number] [address] [place] [address], [place] [address] Jun, [facility] [address] [id number] [address] [place] [address], [place] [address] Jun, [facility] [address] [id number] [address] [place] [address], [place] [address] Jun, [facility] [address] [id number] [address] [place] [address], [place] [address] Jun, [facility] [address] [id number] [address] [place] [address], [place] [address] Jun, [facility] [address] [id number] [address] [place] [address], [place] [address] Jun, [facility] [address] [id number] [address] [place] [address], [place] [address] Jun, [facility] [address] [id number] [address] [place] [address], [place] [address] Jun, [facility] [address] [id number] [facility] [place] [address] Jun, [facility] [address] [id number] [facility] [address] Jun, [facility] [address] [id number] [facility] [address] Jun, [facility] [address] [id number] [address] [place] [address], [place] [address] Jun, [facility] [address] [id number] [address] [place] [address], [place] [address] Jun, [facility] [address] [id number] [address] [place] [address], [place] [address] Jun, [facility] [address] [id number] [address] [place] [address], [place] [address] Jun, [facility] [address] [id number] [address] [place] [address], [place] [address] May, [facility] [address] [id number] [address] [place] [address], [place] [address] May, [facility] [address] [id number] [address] [place] [address], [place] [address] May, [facility] [address] [id number] [address] [place] [address], [place] [address] May, [facility] [address] [id number] [address] [place] [address], [place] [address] May, [facility] [address] [id number] [address] [place] [address], [place] [address] May, [facility] [address] [id number] [address] [place] [address], [place] [address] May, [facility] [address] [id number] [address] [place] [address], [place] [address] May, [facility] [address] [id number] [address] [place] [address], [place] [address] May, [facility] [address] [id number] [facility] [place] [address] May, [facility] [address] [id number] [address] [place] [address], [place] [address] May, [facility] [address] [id number] [address] [place] [address], [place] [address] May, [facility] [address] [id number] [address] [place] [address], [place] [address] May, [facility] [address] [id number] [address] [place] [address], [place] [address] Apr, [facility] [address] [id number] [address] [place] [address], [place] [address] Apr, [facility] [address] [id number] [address] [place] [address], [place] [address] Apr, [facility] [address] [id number] [address] [place] [address], [place] [address] Apr, [facility] [address] [id number] [address] [place] [address], [place] [address] Apr, [facility] [address] [id number] [address] [place] [address], [place] [address] Apr, [facility] [address] [id number] [address] [place] [address], [place] [address] Apr, [facility] [address] [id number] [address] [place] [address], [place] [address] Apr, [facility] [address] [id number] [address] [place] [address], [place] [address] Apr, [facility] [address] [id number] [address] [place] [address], [place] [address] March, [facility] [address] [id number] [address] [place] [address], [place] [address] March, [facility] [address] [id number] [facility] [place] [address] March, [facility] [address] [id number] [address] [place] [address], [place] [address] March, [facility] [address] [id number] [address] [place] [address], [place] [address] March, [facility] [address] [id number] [address] [place] [address], [place] [address] March, [facility] [address] [id number] [address] [place] [address], [place] [address] March, [facility] [address] [id number] [address] [place] [address], [place] [address] March, [facility] [address] [id number] [address] [place] [address], [place] [address] March, [facility] [address] [id number] [address] [place] [address], [place] [address] March, [facility] [address] [id number] [address] [place] [address], [place] [address] March, [facility] [address] [id number] [address] [place] [address], [place] [address] March, [facility] [address] [id number] [address] [place] [address], [place] [address] March, [facility] [address] [id number] [address] [place] [address], [place] [address] March, [facility] [address] [id number] [address] [place] [address], [place] [address] March, [facility] [address] [id number] [address] [place] [address], [place] [address] March, [facility] [address] [id number] [address] [place] [address], [place] [address] March, [facility] [address] [id number] [address] [place] [address], [place] [address] March, [facility] [address] [id number] [facility] [place] [address] March, [facility] [address] [id number] [address] [place] [address], [place] [address] March, [facility] [address] [id number] [address] [place] [address], [place] [address] Feb, [facility] [address] [id number] [address] [place] [address], [place] [address] Feb, [facility] [address] [id number] [address] [place] [address], [place] [address] Feb, [facility] [address] [id number] [address] [place] [address], [place] [address] Feb, [facility] [address] [id number] [address] [place] [address], [place] [address] Feb, [facility] [address] [id number] [address] [place] [address], [place] [address] Feb, [facility] [address] [id number] [address] [place] [address], [place] [address] Feb, [facility] [address] [id number] [address] [place] [address], [place] [address] Feb, [facility] [address] [id number] [address] [place] [address], [place] [address] Jan, [facility] [place] [facility] [address] [id number] [address] [place] [address], [place] [address] Jan, [facility] [place] [facility] [address] [id number] [address] [place] [address], [place] [address] Jan, [facility] [place] [facility] [address] [id number] [address] [place] [address], [place] [address] 24 Jan, 2014 [facility] [place] [facility] [address] [id number] [address] [place] [address], [place] [address] 13 Jan, 2014 [facility] [address] [id number] [address] [address] 13 Jan, 2014 [facility] [address] [id number] [address] [place] [address], [place] [address] Jan, [facility] [place] [facility] [address] [id number] [address] [place] [address], [place] [address] Jan, [facility] [address] [id number] [address] [place] [address], [place] [address] Jan, [facility] [place] [facility] [address] [id number] [address] [place] [address], [place] [address] Jan, [facility] [address] [id number] [address] [place] [address], [place] [address] Dec, [facility] [address] [id number] [address] [place] [address], [place] [address] Dec, [facility] [address] [id number] [address] [place] [address], [place] [address] Dec, [facility] [address] [id number] [address] [place] [address], [place] [address] Dec, [facility] [place] [facility] [address] [id number] [address] [place] [address], [place] [address] Dec, [facility] [address] [id number] [address] [place] [address], [place] [address] Dec, [facility] [place] [facility] [address] [id number] [address] [place] [address], [place] [address] Dec, [facility] [address] [id number] [address] [place] [address], [place] [address] Dec, [facility] [place] [facility] [address] [id number] [address] [place] [address], [place] [address] Nov, [facility] [place] [facility] [address] [id number] [address] [place] [address], [place] [address] Nov, [facility] [place] [facility] [address] [id number] [address] [place] [address], [place] [address] Nov, [facility] [address] [id number] [address] [place] [address], [place] [address] Nov, [facility] [address] [id number] [address] [place] [address], [place] [address] Nov, [facility] [address] [id number] [address] [place] [address], [place] [address] Nov, [facility] [address] [id number] [address] [place] [address], [place] [address] Nov, [facility] [address] [id number] [address] [place] [address], [place] [address] Nov, [facility] [address] [id number] [address] [place] [address], [place] [address] Nov, [facility] [address] [id number] [address] [place] [address], [place] [address] Nov, [facility] [address] [id number] [address] [place] [address], [place] [address] Nov, [facility] [address] [id number] [address] [place] [address], [place] [address] Nov, [facility] [address] [id number] [address] [place] [address], [place] [address] Nov, [facility] [address] [id number] [address] [place] [address], [place] [address] Oct, [facility] [address] [id number] [address] [place] [address], [place] [address] Oct, [facility] [address] [id number] [address] [place] [address], [place] [address] Oct, [facility] [address] [id number] [address] [place] [address], [place] [address] Oct, [facility] [address] [id number] [address] [place] [address], [place] [address] Oct, [facility] [address] [id number] [address] [place] [address], [place] [address] 23 Oct, 2013 [facility] [address] [id number] [address] [place] [address], [place] [address] 18 Oct, 2013 [facility] [address] [id number] [address] [place] [address], [place] [address] 18 Oct, 2013 [facility] [address] [id number] [address] [place] [address], [place] [address] 17 Oct, 2013 [facility] [address] [id number] [address] [place] [address], [place] [address] 17 Oct, 2013 [facility] [address] [id number] [address] [place] [address], [place] [address] Oct, [facility] [address] [id number] [address] [place] [address], [place] [address] Oct, [facility] [address] [id number] [address] [place] [address], [place] [address] Oct, [facility] [address] [id number] [address] [place] [address], [place] [address] 02 Oct, 2013 [facility] [address] [id number] [address] [place] [address], [place] [address] 14 Sep, 2013 [facility] [address] [id number] [address] [place] [address], [place] [address] 14 Sep, 2013 [facility] [address] [id number] [address] [place] [address], [place] [address] 05 Sep, 2013 [facility] [address] [id number] [address] [place] [address], [place] [address] 05 Sep, 2013 [facility] [address] [id number] [address] [place] [address], [place] [address] 04 Sep, 2013 [facility] [address] [id number] [address] [place] [address], [place] [address] 04 Sep, 2013 [facility] [address] [id number] [address] [place] [address], [place] [address] Sep, [facility] [address] [id number] [address] [place] [address], [place] [address] Sep, [facility] [address] [id number] [address] [place] [address], [place] [address] Sep, [facility] [address] [id number] [address] [place] [address], [place] [address] Sep, [facility] [address] [id number] [address] [place] [address], [place] [address] Aug, [facility] [address] [id number] [address] [place] [address], [place] [address] Aug, [facility] [address] [id number] [address] [place] [address], [place] [address] Aug, [facility] [address] [id number] [address] [place] [address], [place] [address] Aug, [facility] [address] [id number] [address] [place] [address], [place] [address] Aug, [facility] [address] [id number] [address] [place] [address], [place] [address] Aug, [facility] [address] [id number] [address] [place] [address] Aug, [facility] [address] [id number] [address] [place] [address] Aug, [facility] [address] [id number] [address] [place] [address] Aug, [facility] [address] [id number] [address] [place] [address], [place] [address] Aug, [facility] [address] [id number] [address] [place] [address] Aug, [facility] [address] [id number] [address] [place] [address] Aug, [facility] [address] [id number] [address] [place] [address] 18 Aug, 2013 [facility] [address] [id number] [address] [place] [address], [place] [address] 18 Aug, 2013 [facility] [address] [id number] [address] [place] [address], [place] [address] 17 Aug, 2013 [facility] [address] [id number] [address] [place] [address], [place] [address] 14 Aug, 2013 [facility] [address] [id number] [address] [place] [address], [place] [address] 14 Aug, 2013 [facility] [address] [id number] [address] [place] [address], [place] [address] 01 Aug, 2013 [facility] [address] [id number] [address] [place] [address], [place] [address] 20 Jul, 2013 [facility] [address] [id number] [address] [place] [address], [place] [address] 19 Jul, 2013 [facility] [address] [id number] [address] [place] [address], [place] [address] 18 Jul, 2013 [facility] [address] [id number] [address] [place] [address], [place] [address] 11 Jul, 2013 [facility] [address] [id number] [address] [place] [address], [place] [address] 11 Jul, 2013 [facility] [address] [id number] [address] [place] [address], [place] [address] 28 Jun, 2013 [facility] [place] [address] [id number] [address] [place] [address], [place] [address] 23 Jun, 2013 [facility] [address] [id number] [address] [place] [address], [place] [address] 23 Jun, 2013 [facility] [address] [id number] [address] [place] [address], [place] [address] 15 Jun, 2013 [facility] [place] [facility] [address] [id number] [address] [place] [address], [place] [address] 14 Jun, 2013 [facility] [place] [facility] [address] [id number] [facility] [place] [address] Jun, [facility] [address] [id number] [address] [place] [address], [place] [address] Jun, [facility] [address] [id number] [address] [place] [address], [place] [address] Jun, [facility] [address] [id number] [address] [place] [address], [place] [address] Jun, [facility] [address] [id number] [address] [place] [address], [place] [address] Jun, [facility] [address] [id number] [address] [place] [address], [place] [address] May, [facility] [address] [id number] [address] [place] [address], [place] [address] May, [facility] [address] [id number] [address] [place] [address], [place] [address] May, [facility] [address] [id number] [address] [place] [address], [place] [address] May, [facility] [address] [id number] [address] [place] [address], [place] [address] May, [facility] [address] [id number] [address] [place] [address], [place] [address] May, [facility] [address] [id number] [address] [place] [address], [place] [address] May, [facility] [address] [id number] [address] [place] [address], [place] [address] May, [facility] [address] [id number] [address] [place] [address], [place] [address] May, [facility] [address] [id number] [address] [place] [address], [place] [address] Apr, [facility] [address] [id number] [address] [place] [address], [place] [address] Apr, [facility] [address] [id number] [address] [place] [address], [place] [address] Apr, [facility] [address] [id number] [address] [place] [address], [place] [address] Apr, [facility] [address] [id number] [address] [place] [address], [place] [address] Apr, [facility] [address] [id number] [address] [place] [address], [place] [address] Apr, [facility] [address] [id number] [address] [place] [address], [place] [address] Apr, [facility] [address] [id number] [address] [place] [address], [place] [address] March, [facility] [address] [id number] [address] [place] [address], [place] [address] Feb, [facility] [address] [id number] [address] [place] [address], [place] [address] Feb, [facility] [address] [id number] [address] [place] [address], [place] [address] Feb, [facility] [address] [id number] [address] [place] [address], [place] [address] Jan, [facility] [address] [id number] [address] [place] [address], [place] [address] Jan, [facility] [address] [id number] [address] [place] [address], [place] [address] Jan, [facility] [address] [id number] [address] [place] [address], [place] [address] 14 Jan, 2013 [facility] [address] [id number] [address] [place] [address], [place] [address] 12 Jan, 2013 [facility] [address] [id number] [address] [place] [address], [place] [address] 08 Jan, 2013 [facility] [address] [id number] [address] [place] [address], [place] [address] 07 Jan, 2013 [facility] [address] [id number] [address] [place] [address], [place] [address] 04 Jan, 2013 [facility] [address] [id number] [address] [place] [address], [place] [address] 28 Dec, 2012 [facility] [address] [id number] [address] [place] [address], [place] [address] 25 Dec, 2012 [facility] [address] [id number] [address] [place] [address], [place] [address] 13 Dec, 2012 [facility] [address] [id number] [address] [place] [address], [place] [address] 11 Dec, 2012 [facility] [address] [id number] [address] [place] [address], [place] [address] 07 Dec, 2012 [facility] [address] [id number] [address] [place] [address], [place] [address] 06 Dec, 2012 [facility] [address] [id number] [address] [place] [address], [place] [address] 05 Dec, 2012 [facility] [address] [id number] [address] [place] [address], [place] [address] Nov, [facility] [address] [id number] [address] [place] [address], [place] [address] 24 Nov, 2012 [facility] [address] [id number] [address] [place] [address], [place] [address] 18 Nov, 2012 [facility] [address] [id number] [address] [place] [address], [place] [address] 15 Nov, 2012 [facility] [address] [id number] [address] [place] [address], [place] [address] 10 Nov, 2012 [facility] [address] [id number] [address] [place] [address], [place] [address] 10 Nov, 2012 [facility] [address] [id number] [address] [place] [address], [place] [address] Nov, [facility] [address] [id number] [address] [place] [address], [place] [address] Oct, [facility] [address] [id number] [address] [place] [address], [place] [address] Oct, [facility] [address] [id number] [address] [place] [address], [place] [address] Oct, [facility] [address] [id number] [address] [place] [address], [place] [address] Oct, [facility] [address] [id number] [address] [place] [address], [place] [address] Oct, [facility] [address] [id number] [address] [place] [address], [place] [address] Oct, [facility] [address] [id number] [address] [place] [address], [place] [address] Oct, [facility] [address] [id number] [address] [place] [address], [place] [address] Oct, [facility] [address] [id number] [address] [place] [address], [place] [address] Oct, [facility] [address] [id number] [address] [place] [address], [place] [address] Oct, [facility] [address] [id number] [address] [place] [address], [place] [address] Oct, [facility] [address] [id number] [address] [place] [address], [place] [address] Oct, [facility] [address] [id number] [address] [place] [address], [place] [address] Sep, [facility] [address] [id number] [address] [place] [address], [place] [address] Sep, [facility] [address] [id number] [address] [place] [address], [place] [address] Sep, [facility] [address] [id number] [address] [place] [address] Sep, [facility] [address] [id number] [address] [place] [address], [place] [address] Sep, [facility] [address] [id number] [address] [place] [address] Sep, [facility] [address] [id number] [address] [place] [address] Sep, [facility] [address] [id number] [address] [place] [address] Sep, [facility] [address] [id number] [address] [place] [address], [place] [address] Sep, [facility] [address] [id number] [address] [place] [address] Sep, [facility] [address] [id number] [address] [place] [address] Sep, [facility] [address] [id number] [address] [place] [address] Aug, [facility] [address] [id number] [address] [place] [address] Aug, [facility] [address] [id number] [address] [place] [address] Aug, [facility] [address] [id number] [address] [place] [address] Aug, [facility] [address] [id number] [address] [place] [address] Aug, [facility] [address] [id number] [address] [place] [id number] Aug, [facility] [address] [id number] [address] [place] [id number] Aug, [facility] [address] [id number] [address] [place] [id number] Aug, [facility] [address] [id number] [facility] [place] [address] Aug, [facility] [address] [id number] [address] [place] [address], [place] [address] Aug, [facility] [address] [id number] [address] [place] [address], [place] [address] Jul, [facility] [address] [id number] [address] [place] [address], [place] [address] Jul, [facility] [address] [id number] [address] [place] [address], [place] [address] Jul, [facility] [address] [id number] [address] [place] [address], [place] [address] Jul, [facility] [address] [id number] [address] [place] [address], [place] [address] Jun, [facility] [address] [id number] [address] [place] [address], [place] [address] Jun, [facility] [address] [id number] [address] [place] [address], [place] [address] Jun, [facility] [address] [id number] [address] [place] [address], [place] [address] Jun, [facility] [address] [id number] [address] [place] [address], [place] [address] Jun, [facility] [address] [id number] [address] [place] [address], [place] [address] Jun, [facility] [address] [id number] [address] [place] [address], [place] [address] Jun, [facility] [address] [id number] [address] [place] [address], [place] [address] May, [facility] [address] [id number] [address] [place] [address], [place] [address] May, [facility] [address] [id number] [address] [place] [address], [place] [address] May, [facility] [address] [id number] [address] [place] [address], [place] [address] May, [facility] [address] [id number] [address] [place] [address], [place] [address] May, [facility] [address] [id number] [address] [place] [address], [place] [address] Apr, [facility] [address] [id number] [address] [place] [address], [place] [address] Apr, [facility] [address] [id number] [address] [place] [address], [place] [address] Apr, [facility] [address] [id number] [address] [place] [address], [place] [address] Apr, [facility] [address] [id number] [address] [place] [address], [place] [address] Apr, [facility] [address] [id number] [address] [place] [address], [place] [address] March, [facility] [address] [id number] [address] [place] [address], [place] [address] March, [facility] [address] [id number] [address] [place] [address], [place] [address] March, [facility] [address] [id number] [address] [place] [address], [place] [address] March, [facility] [address] [id number] [address] [place] [address], [place] [address] March, [facility] [address] [id number] [address] [place] [address], [place] [address] March, [facility] [address] [id number] [address] [place] [address], [place] [address] March, [facility] [address] [id number] [address] [place] [address], [place] [address] March, [facility] [address] [id number] [address] [place] [address], [place] [address] March, [facility] [address] [id number] [address] [place] [address], [place] [address] March, [facility] [address] [id number] [address] [place] [address], [place] [address] 30 Feb, 2012 [facility] [address] [id number] [address] [place] [address], [place] [address] Feb, [facility] [address] [id number] [address] [place] [address], [place] [address] Feb, [facility] [address] [id number] [address] [place] [address], [place] [address] Feb, [facility] [address] [id number] [address] [place] [address], [place] [address] Feb, [facility] [address] [id number] [address] [place] [address], [place] [address] Feb, [facility] [address] [id number] [address] [place] [address], [place] [address] Feb, [facility] [address] [id number] [address] [place] [address], [place] [address] Feb, [facility] [facility] [address] [id number] [address] [place] [address], [place] [address] Feb, [facility] [address] [id number] [address] [place] [address], [place] [address] Jan, [facility] [address] [id number] [address] [place] [address], [place] [address] Jan, [facility] [address] [id number] [address] [place] [address], [place] [id number] 05 Jan, 2012 [facility] [address] [id number] [address] [place] [address], [place] [address] Jan, [facility] [address] [id number] [address] [place] [address], [place] [address] Dec, [facility] [place] [address] [id number] [address] [place] [phone] Dec, [facility] [place] [address] [id number] [address] [place] [phone] Nov, [facility] [place] [address] [id number] [address] [place] [phone] Nov, [facility] [place] [address] [id number] [address] [place] [phone] Nov, [facility] [place] [address] [id number] [address] [place] [phone] Nov, [facility] [place] [address] [id number] [address] [place] [phone] Nov, [facility] [place] [address] [id number] [address] [place] [phone] Oct, [facility] [place] [address] [id number] [address] [place] [phone] Oct, [facility] [place] [address] [id number] [address] [place] [phone] Oct, [facility] [place] [address] [id number] [address] [place] [phone] Oct, [facility] [place] [address] [id number] [address] [place] [phone] Oct, [facility] [place] [address] [id number] [address] [place] [phone] Oct, [facility] [place] [address] [id number] [address] [place] [phone] Oct, [facility] [place] [address] [id number] [address] [place] [phone] Oct, [facility] [place] [address] [id number] [address] [place] [phone] Sep, IMMUNIZATIONS No Known Immunizations SOCIAL HISTORY Never Assessed REASON FOR VISIT PLAN OF CARE VITAL SIGNS MEDICATIONS Unknown Medications RESULTS No Results PROCEDURES No Known procedures INSTRUCTIONS MEDICATIONS ADMINISTERED No Known Medications MEDICAL (GENERAL) HISTORY Type Description Date Medical History aortic abdominal aneurysm moderate 04/06 18 Medical History illiac aneurysm 03/2018 Medical History history of falling Medical History history of UTI Medical History Essential hypertension Medical History cataract Medical History Osteoarthritis Medical History malaise Medical History abdominal aortc aneurysm, w/o rupture Medical History COPD Medical History MDD, single episode Medical History GERD Medical History Hyperlipidemia Medical History Joint replacement surgery Medical History Hypo-osmolality and Hyponatremia Medical History dysphagia, oropharyngeal phase Medical History abnormal result, oth cardiovsclr funct Medical History ADD Medical History athr hrt dz 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
--- OUTSIDE RECORDS SUMMARY | 2020-06-18 14:32 | XMS REPORT ---
Author Author Sanjuanita MARQUEZ [facility] Address [address] [place] [address] Care Team Providers Care Shaker [place] Name Role Phone SHAHNAZ MARQUEZ Unavailable PROBLEMS Type Condition ICD9-CM Code YBN17-DM Code Onset Dates Condition S tatus SNOMED Code Problem Hypertension I10 Active 8722550 3 Problem Hyperlipidemia E78.5 Active 68622 004 Problem Coronary artery disease I25.10 Active 72356342 Problem Low back pain M54.5 Active 853925 009 Problem Other chronic pain G89.29 Active 8 3957889 Problem Ventral hernia without obstruction or gangrene K43 .9 Active 191132736 Problem Type 2 diabetes mellitus wit hout complication, without long-term current use of insulin E11.9 Active 179275442 Problem Anxiety F41.9 Active 20977988 Problem Peripheral vascular disease I73.9 Ac tive 579484548 Problem Insomnia G47.00 Active 040775324 Problem Microcytic anemia D50.9 Active 23 1698980 Problem Pharyngeal dysphagia R13.13 Active 87263039695247 Problem Other iron deficiency anemia D50.8 A ctive 24674694 Problem Reactive depression F32.9 Active 24975986 Problem Paroxysmal atrial fibrillation I48.0 Active 858839268 Problem 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 Active 65305710 Problem Encounter for suprapubic catheter care Z43.5 Active 062020229 Problem Neurogenic bladder N31.9 Active 3 37900178 ALLERGIES No Information ENCOUNTERS Encounter Location Date Diagnosis [facility], [place] [address] [facility] [id number] [address] [place] [phone] May, [facility] [place] [address] [facility] [id number] [address] [place] [phone] May, Strain of right shoulder, scherer bsequent encounter S46.911D and Anxiety F41.9 [facility], [place] [address] [id number] [address] [place] [phone] 17 Apr, 2020 Anxiety F41.9 and Strain of right shoulder, subsequent encounter S46.911D [facility], [place] [address] [id number] [address] [place] [phone] 04 Apr, 2020 [facility] [place] [address] [id number] [address] [place] [phone] March, [facility] [place] [address] [id number] [address] [place] [address] March, Anxiety F41.9 and Strain of right shoulder, subsequent encounter S46.911D [facility], [place] [address] [id number] [address] [place] [id number] Feb, Anxiety F41.9 and Strain of right shoulder, subsequent encounter S46.911D [facility], [place] [address] [id number] [address] [place] [address] Jan, Anxiety F41.9 and Strain of right shoulder, subsequent encounter S46.911D [facility], [place] [address] [id number] [address] [place] [phone] Jan, Via [facility] [address] [place] [id number] Jan, Neurogenic bladder N31.9 [facility], [place] [address] [id number] [address] [place] [address] Dec, [facility] [place] [address] [id number] [address] [place] [phone] Dec, [facility] [place] [address] [id number] [address] [place] [phone] Dec, Anxiety F41.9 and Strain of right shoulder, subsequent encounter S46.911D [facility] [place] [address] [id number] [address] [place] [phone] 10 Dec, 2019 Other iron deficiency anemia D50.8 [facility], [place] [address] [id number] [address] [place] [phone] Dec, Via [facility] [address] [place] [id number] Dec, Encounter for suprapubic catheter care Z 43.5 and Microcytic anemia D50.9 [place] [address] [id number] [address] [place] [phone] Dec, [place] [address] [id number] [address] [place] [address] Nov, Anxiety F41.9 and Strain of right shoulder, subsequent encounter S46.911D [place] [address] [id number] [address] [place] [phone] Nov, Hypertension I10 Via [facility] [address] [place] [id number] Nov, Pneumonia of both lungs due to infectiou s organism, unspecified part of lung J18.9 and Suprapubic catheter Z93.59 [place] [address] [id number] [address] [place] [address] Nov, Hypertension I10 and Reactiv e depression F32.9 [place] [address] [id number] [address] [place] [address] Oct, Strain of right shoulder, scherer bsequent encounter S46.911D and Anxiety F41.9 [place] [address] [id number] [address] [place] [phone] Oct, Via [facility] [address] [place] [id number] Oct, Suprapubic catheter Z93.59 and Candidias is, intertriginous B37.2 [place] [address] [id number] [address] [place] [address] Oct, Suprapubic catheter Z93.59 [place] [address] [id number] [address] [place] [address] Oct, Anxiety F41.9 and Strain of right shoulder, subsequent encounter S46.911D [facility] [place] [address] [id number] [address] [place] [address] Sep, [facility] [place] [address] [id number] [address] [place] [phone] Sep, [facility], [place] [address] [id number] [address] [place] [phone] Sep, Via [facility] [address] [place] [id number] Sep, Suprapubic catheter Z93.59 [facility], [place] [address] [id number] [address] [place] [address] Sep, Anxiety F41.9 and Strain of right shoulder, subsequent encounter S46.911D [facility] [place] [address] [id number] [address] [place] [phone] Aug, [facility] [place] [address] [id number] [address] [place] [address] Aug, [facility], [place] [address] [id number] [address] [place] [address] Aug, Anxiety F41.9 and Strain of right shoulder, subsequent encounter S46.911D [facility] [address] [place] [id number] Aug, Suprapubic catheter Z93.59 [facility], [place] [address] [id number] [address] [place] [address] Jul, Strain of right shoulder, scherer bsequent encounter S46.911D and Anxiety F41.9 [facility], [place] [address] [id number] [address] [place] [phone] Jul, Anxiety F41.9 [facility] [place] [address] [id number] [address] [place] [address] Jun, [facility] [place] [address] [id number] [address] [place] [phone] Jun, [facility] [place] [address] [id number] [address] [place] [address] Jun, [place] [address] [id number] [address] [place] [address] Jun, Strain of right shoulder, scherer bsequent encounter S46.911D [place] [address] [id number] [address] [place] [address] Jun, Strain of right shoulder, scherer bsequent encounter S46.911D [place] [address] [id number] [address] [place] [address] Jun, Anxiety F41.9 Via [facility] [address] [place] [id number] Jun, Neurogenic bladder N31.9 and Anxiety F41 .9 Via [facility] [address] [place] [id number] May, Anxiety F41.9 [place] [address] [id number] [address] [place] [address] May, Dysuria R30.0 [place] [address] [id number] [address] [place] [address] May, Strain of right shoulder, scherer bsequent encounter S46.911D and Anxiety F41.9 [place] [address] [id number] [address] [place] [address] Apr, Via [facility] [email or web address] [address] [place] [id number] Apr, Strain of right shoulder, subsequent enc ounter S46.911D [place] [address] [id number] [address] [place] [address] Apr, Strain of right shoulder, scherer bsequent encounter S46.911D and Anxiety F41.9 [facility] [address] [place] [id number] Apr, Type 2 diabetes mellitus without complic ation, without long-term current use of insulin E11.9 and Neurogenic bladder N31.9 [facility] [address] [place] [id number] Apr, Strain of right shoulder, subsequent enc ounter S46.911D ; History of GI bleed Z87.19 ; Neurogenic bladder N31.9 and Reactive depression F32.9 [facility], [place] [address] [id number] [address] [place] [address] Apr, Acute pain of left shoulder M25.512 [facility], [place] [address] [id number] [address] [place] [address] Apr, [facility], [place] [address] [id number] [address] [place] [address] Apr, Anxiety F41.9 and 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 [facility] [address] [place] [id number] March, Gastrointestinal hemorrhage associated w ith acute gastritis K29.01 [facility], [place] [address] [id number] [address] [place] [address] March, Via [facility] [address] [place] [id number] March, Bronchitis J40 [facility], [place] [address] [id number] [address] [place] [address] March, Cough R05 [facility], [place] [address] [id number] [address] [place] [address] March, Other chronic pain G89.29 [facility] [place] [address] [id number] [address] [place] [address] March, Anxiety F41.9 [facility] [place] [address] [id number] [address] [place] [address] March, [facility] [place] [address] [id number] [address] [place] [phone] Feb, Other chronic pain G89.29 [facility] [place] [address] [id number] [address] [place] [phone] Feb, Anxiety F41.9 [facility] [place] [address] [id number] [address] [place] [phone] Feb, Other chronic pain G89.29 Via [facility] [place] [employer] [address] [place] [id number] Feb, Neurogenic bladder N31.9 and Suprapubic catheter Z93.59 [facility], [place] [address] [id number] [address] [place] [phone] Jan, Anxiety F41.9 [facility], [place] [address] [id number] [address] [place] [address] Dec, Anxiety F41.9 [facility], [place] [address] [id number] [address] [place] [address] Dec, Other chronic pain G89.29 an d Anxiety F41.9 [facility], [place] [address] [id number] [address] [place] [phone] Dec, Via [employer] [address] [place] [id number] Dec, Neurogenic bladder N31.9 and Suprapubic catheter Z93.59 [facility], [place] [address] [id number] [address] [place] [address] Nov, Other chronic pain G89.29 an d Anxiety F41.9 [facility], [place] [address] [id number] [address] [place] [address] Nov, Via [facility] [address] [place] [id number] Nov, Suprapubic catheter Z93.59 [facility], [place] [address] [id number] [address] [place] [phone] Oct, Other chronic pain G89.29 an d Anxiety F41.9 [facility], [place] [address] [id number] [address] [place] [address] Oct, [facility], [place] [address] [id number] [address] [place] [address] Oct, Suprapubic catheter Z93.59 [facility], [place] [address] [id number] [address] [place] [phone] Oct, Via [employer] [address] [place] [id number] Oct, [facility] [place] [address] [id number] [address] [place] [address] Oct, Anxiety F41.9 [facility], [place] [address] [id number] [address] [place] [address] Oct, Anxiety F41.9 [facility] [address] [place] [id number] Oct, Other chronic pain G89.29 [facility], [place] [address] [id number] [address] [place] [phone] Sep, Other chronic pain G89.29 [facility] [address] [place] [id number] Sep, Suprapubic catheter Z93.59 and Cervicalg ia M54.2 [facility], [place] [address] [id number] [address] [place] [address] Sep, [facility] [place] [address] [id number] [address] [place] [phone] Sep, [facility] [place] [address] [id number] [address] [place] [address] Sep, Via [facility] [address] [place] [id number] Aug, Cystitis N30.90 [facility], [place] [address] [id number] [address] [place] [address] Aug, [facility] [place] [address] [id number] [address] [place] [address] Aug, Other chronic pain G89.29 [facility] [place] [address] [id number] [address] [place] [address] Aug, Via [facility] [address] [place] [id number] Aug, Encounter for suprapubic catheter care Z 43.5 [facility] [place] [address] [id number] [address] [place] [address] Jul, Via [facility] [place] [email or web address] [address] [place] [id number] Jul, [facility] [place] [address] [id number] [address] [place] [address] Jul, Other chronic pain G89.29 [facility] [place] [address] [id number] [address] [place] [phone] Jul, [facility] [place] [address] [id number] [address] [place] [address] Jul, Via [facility] [address] [place] [id number] Jun, 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 [facility], [place] [address] [id number] [address] [place] [address] Jun, Other chronic pain G89.29 [facility], [place] [address] [id number] [address] [place] [address] Jun, Via [facility] [address] [place] [id number] May, Anxiety F41.9 ; Type 2 diabetes mellitus without complication, without long-term current use of insulin E11.9 ; Hypertension I10 ; Low back pain M54.5 ; Paroxysmal atrial fibrillation I48.0 and 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 [facility], [place] [address] [id number] [address] [place] [address] May, Other chronic pain G89.29 [facility] [address] [place] [id number] May, Low back pain M54.5 [facility] [place] [address] [id number] [address] [place] [address] May, [facility] [place] [address] [id number] [address] [place] [address] Apr, Other chronic pain G89.29 [facility] [place] [address] [id number] [address] [place] [address] Apr, [facility] [place] [address] [id number] [address] [place] [address] Apr, Via [facility] [address] [place] [id number] Apr, Closed compression fracture of L3 lumbar vertebra with routine healing, subsequent encounter S32.030D [facility] [address] [place] [id number] Apr, Low back pain M54.5 [facility] [address] [place] [id number] Apr, Coccydynia M53.3 [facility] [place] [address] [id number] [address] [place] [address] March, [facility] [place] [address] [id number] [address] [place] [address] March, Other chronic pain G89.29 [facility] [place] [address] [id number] [address] [place] [phone] March, [facility] [place] [address] [id number] [address] [place] [address] March, [facility] [place] [address] [id number] [address] [place] [address] Feb, [facility] [place] [address] [id number] [address] [place] [address] Feb, Other chronic pain G89.29 Via [facility] [address] [place] [id number] Feb, Other chronic pain G89.29 and Anxiety F4 1.9 [facility] [place] [address] [id number] [address] [place] [address] Feb, [facility] [place] [address] [id number] [address] [place] [address] Jan, [facility] [place] [address] [facility] [id number] [address] [place] [address] Jan, [facility] [place] [address] [facility] [id number] [address] [place] [address] Jan, [facility] [place] [address] [facility] [id number] [address] [place] [address] Jan, [facility] [place] [address] [facility] [id number] [address] [place] [address] Dec, Via [facility] [employer] [address] [place] [id number] Dec, Peripheral vascular disease I73.9 ; 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 ; Other chronic pain G89.29 ; Anxiety F41.9 ; Reactive depression F32.9 ; Insomnia G47.00 and Type 2 diabetes mellitus without complication, without long-term current use of insulin E11.9 [facility]HEZ [id number] [place] [address] Nov, [facility] [address] [id number] [place] [id number] Nov, Anxiety F41.9 [place] [address] [facility] [id number] [address] [place] [address] Nov, [place] [address] [id number] [place] [id number] Nov, Anxiety F41.9 Via [facility] [employer] [address] [place] [id number] Nov, Status post surgery Z98.890 ; Confused R 41.0 ; Anxiety F41.9 and Other chronic pain G89.29 [facility] [address] [id number] [place] [id number] Nov, Other chronic pain G89.29 [facility] [place] [address] [facility] [id number] [address] [place] [address] Oct, [facility] [address] [id number] [place] [id number] Oct, Other chronic pain G89.29 [facility] [place] [address] [id number] [address] [place] [address], [place] [address] Oct, Anxiety F41.9 [facility] [address] [id number] [place] [id number] Sep, Other chronic pain G89.29 [facility] [address] [id number] [place] [id number] Sep, [facility] [employer] [address] [place] [id number] Aug, Dysuria R30.0 and Anxiety F41.9 [facility] [place] [address] [id number] [address] [place] [address], [place] [address] Aug, [facility] [address] [id number] [place] [id number] Aug, Other chronic pain G89.29 [facility] [place] [address] [id number] [address] [place] [address], [place] [address] Jul, Other chronic pain G89.29 [facility] [address] [id number] [place] [id number] Jun, [facility] [address] [id number] [place] [id number] Jun, Other chronic pain G89.29 [facility] [place] [address] [id number] [address] [place] [address], [place] [address] Jun, [facility] [place] [address] [id number] [address] [place] [address], [place] [address] May, Other chronic pain G89.29 [facility] [place] [address] [id number] [address] [place] [address], [place] [address] Apr, Other chronic pain G89.29 [facility] [employer] [address] [place] [id number] Apr, Reactive depression F32.9 and Pharyngeal dysphagia R13.13 [facility] [place] [address] [id number] [address] [place] [address] Apr, Urinary tract infection with out hematuria, site unspecified N39.0 [facility] [place] [address] [id number] [address] [place] [address] March, Other chronic pain G89.29 [facility] [place] [address] [id number] [address] [place] [phone] Feb, Other chronic pain G89.29 [facility] [place] [address] [id number] [address] [place] [phone] Feb, [facility] [address] [id number] [place] [id number] Feb, Via [facility] [employer] [address] [place] [id number] Feb, Dysuria R30.0 and Ventral hernia without obstruction or gangrene K43.9 [facility], [place] [address] [facility] [id number] [address] [place] [phone] Jan, Other chronic pain G89.29 [facility] [address] [id number] [place] [id number] Dec, Other chronic pain G89.29 [facility], [place] [address] [facility] [id number] [address] [place] [phone] Nov, Other chronic pain G89.29 [facility] [address] [place] [id number] Nov, Lymphadenitis I88.9 [facility], [place] [address] [id number] [address] [place] [phone] Nov, Other chronic pain G89.29 [facility], [place] [address] [id number] [address] [place] [id number] Nov, [facility] [address] [id number] [place] [id number] Nov, Other chronic pain G89.29 Via [facility] [employer] [facility] [employer] [address] [place] [id number] Oct, Low back pain M54.5 ; Hypertension I10 a nd Type 2 diabetes mellitus without complication, without long-term current use of insulin E11.9 [facility], [place] [address] [id number] [address] [place] [id number] Oct, [facility], [place] [address] [id number] [address] [place] [phone] Oct, [facility], [place] [address] [id number] [address] [place] [id number] Oct, [facility], [place] [address] [id number] [address] [place] [id number] Oct, [facility] [facility], [place] [address] [id number] [address] [place] [address] Sep, [facility], [place] [address] [id number] [address] [place] [address] Sep, [facility], [place] [address] [id number] [address] [place] [address] Aug, Other chronic pain G89.29 [facility], [place] [address] [id number] [address] [place] [address] Jul, [facility], [place] [address] [id number] [address] [place] [address] Jul, [facility], [place] [address] [id number] [address] [place] [address] Jul, [facility], [place] [address] [id number] [address] [place] [phone] Jun, [facility], [place] [address] [id number] [address] [place] [address] Jun, [facility] [address] [place] [id number] Jun, Low back pain M54.5 ; Other chronic pain G89.29 and Coronary artery disease I25.10 [facility], [place] [address] [id number] [address] [place] [address] Jun, [facility], [place] [address] [id number] [address] [place] [address] May, [facility], [place] [address] [id number] [address] [place] [address] May, [facility], [place] [address] [id number] [address] [place] [address] May, Other chronic pain G89.29 [facility], [place] [address] [id number] [address] [place] [address] May, [facility], [place] [address] [id number] [address] [place] [address] Apr, [facility], [place] [address] [id number] [address] [place] [address] 17 Apr, 2016 Acute cystitis without hemat uria N30.00 [facility], [place] [address] [id number] [address] [place] [address] 16 Apr, 2016 Acute cystitis without hemat uria N30.00 ; Coronary artery disease I25.10 ; Low back pain M54.5 and Other chronic pain G89.29 [facility], [place] [address] [id number] [address] [place] [address] Apr, Other chronic pain G89.29 [facility], [place] [address] [id number] [address] [place] [address] March, Other chronic pain G89.29 [facility], [place] [address] [id number] [address] [place] [address] 18 Feb, 2016 [facility], [place] [address] [id number] [address] [place] [address] Feb, Arthritis M19.90 [facility], [place] [address] [id number] [address] [place] [address] Feb, [facility], [place] [address] [id number] [address] [place] [phone] Jan, [facility], [place] [address] [id number] [address] [place] [address] Jan, [facility], [place] [address] [id number] [address] [place] [phone] Jan, Other chronic pain G89.29 [facility], [place] [address] [id number] [address] [place] [address] Jan, Hypertension I10 ; Coronary artery disease I25.10 and Insomnia G47.00 [facility], [place] [address] [id number] [address] [place] [address] Jan, [facility], [place] [address] [id number] [address] [place] [address] Dec, Right hip pain M25.551 [facility], [place] [address] [id number] [address] [place] [address] Dec, [facility], [place] [address] [id number] [address] [place] [address] Dec, [facility], [place] [address] [id number] [address] [place] [address] Dec, [facility], [place] [address] [id number] [address] [place] [address] Dec, Other chronic pain G89.29 [facility], [place] [address] [id number] [address] [place] [address] Dec, [facility], [place] [address] [id number] [address] [place] [address] Nov, [facility], [place] [address] [id number] [address] [place] [address] Nov, Other chronic pain G89.29 [facility], [place] [address] [id number] [address] [place] [address] Nov, Right hip pain M25.551 and C oronary artery disease I25.10 [facility], [place] [address] [id number] [address] [place] [address] Nov, Other chronic pain G89.29 [facility], [place] [address] [id number] [address] [place] [address] Oct, [facility], [place] [address] [id number] [address] [place] [phone] Oct, [facility], [place] [address] [id number] [address] [place] [phone] Sep, [facility], [place] [address] [id number] [address] [place] [phone] Sep, [facility], [place] [address] [id number] [address] [place] [address] Aug, [facility], [place] [address] [id number] [address] [place] [phone] Aug, Hypertension I10 ; Coronary artery disease I25.10 and Arthritis M19.90 [facility], [place] [address] [id number] [address] [place] [phone] Jun, [facility], [place] [address] [id number] [address] [place] [id number] Jun, Essential hypertension, jayson gn 401.1 ; Other chronic pain 338.29 and Chronic airway obstruction, not elsewhere classified 496 [facility], [place] [address] [id number] [address] [place] [phone] Jun, [facility], [place] [address] [id number] [address] [place] [id number] Jun, [facility], [place] [address] [id number] [address] [place] [phone] Jun, [facility], [place] [address] [id number] [address] [place] [phone] May, [facility], [place] [address] [id number] [address] [place] [phone] May, [facility] [address] [id number] [address] [place] [address], [place] [address] Apr, [facility] [address] [id number] [address] [place] [address], [place] [address] Apr, [facility] [address] [id number] [address] [place] [address], [place] [address] Apr, [facility] [address] [id number] [address] [place] [address], [place] [address] March, [facility] [address] [id number] [address] [place] [address], [place] [address] March, [facility] [address] [id number] [address] [place] [address], [place] [address] March, [facility] [address] [id number] [address] [place] [address], [place] [address] March, [facility] [address] [id number] [address] [place] [address], [place] [address] March, Sialadenitis 527.2 [facility] [address] [id number] [address] [place] [address], [place] [address] Feb, [facility], [place] [address] [id number] [address] [place] [address], [place] [address] Feb, [facility] [address] [id number] [address] [place] [address], [place] [address] Feb, [facility] [address] [id number] [address] [place] [address], [place] [address] Feb, [facility] [address] [id number] [address] [place] [address], [place] [address] Feb, [facility] [address] [id number] [address] [place] [address], [place] [address] Jan, [facility] [address] [id number] [address] [place] [address], [place] [address] Jan, [facility] [address] [id number] [address] [place] [address], [place] [address] Jan, [facility] [address] [id number] [address] [place] [address], [place] [address] Jan, [facility] [address] [id number] [address] [place] [address], [place] [address] Jan, [facility] [address] [id number] [address] [place] [address], [place] [address] Jan, [facility] [address] [id number] [address] [place] [address], [place] [address] Dec, [facility] [address] [id number] [address] [place] [address], [place] [address] Dec, 2014 [facility] [address] [id number] [address] [place] [address], [place] [address] Dec, [facility] [address] [id number] [address] [place] [address], [place] [address] Dec, 2014 [facility] [address] [id number] [address] [place] [address], [place] [address] Dec, [facility] [address] [id number] [address] [place] [address], [place] [address] Dec, [facility] [address] [id number] [address] [place] [address], [place] [address] Nov, [facility] [address] [id number] [address] [place] [address], [place] [address] Nov, [facility] [address] [id number] [address] [place] [address], [place] [address] Nov, [facility] [address] [id number] [address] [place] [address], [place] [address] Nov, [facility] [address] [id number] [address] [place] [address], [place] [address] Nov, [facility] [address] [id number] [address] [place] [address], [place] [address] Nov, [facility] [place] [address] [id number] [address] [place] [address], [place] [address] Nov, [facility] [address] [id number] [address] [place] [address], [place] [address] Nov, [facility] [address] [id number] [address] [place] [address], [place] [address] Nov, [facility] [address] [id number] [address] [place] [address], [place] [address] Nov, [facility] [address] [id number] [address] [place] [address], [place] [address] Nov, [facility] [address] [id number] [address] [place] [address], [place] [address] Nov, [facility] [place] [address] [id number] [address] [place] [address], [place] [address] Nov, [facility] [place] [address] [id number] [address] [place] [address], [place] [address] Nov, [facility] [place] [address] [id number] [address] [place] [address], [place] [address] Oct, [facility] [address] [id number] [address] [place] [address], [place] [address] Oct, [facility] [address] [id number] [address] [place] [address], [place] [address] Oct, [facility] [address] [id number] [address] [place] [address], [place] [address] 18 Oct, 2014 [facility] [address] [id number] [address] [place] [address], [place] [address] 18 Oct, 2014 [facility] [address] [id number] [address] [place] [address], [place] [address] 17 Oct, 2014 [facility] [address] [id number] [address] [place] [address], [place] [address] 17 Oct, 2014 [facility] [address] [id number] [address] [place] [address], [place] [address] Oct, [facility] [address] [id number] [address] [place] [address], [place] [address] Oct, [facility] [address] [id number] [address] [place] [address], [place] [address] Sep, [facility] [address] [id number] [address] [place] [address], [place] [address] Sep, [facility] [address] [id number] [address] [place] [address], [place] [address] Sep, [facility] [address] [id number] [address] [place] [address], [place] [address] Sep, [facility] [address] [id number] [address] [place] [address], [place] [address] Sep, [facility] [address] [id number] [address] [place] [address], [place] [address] Sep, [facility] [address] [id number] [address] [place] [address], [place] [address] Sep, [facility] [address] [id number] [address] [place] [address], [place] [address] Sep, [facility] [address] [id number] [address] [place] [address], [place] [address] Sep, [facility] [address] [id number] [address] [place] [address], [place] [address] Sep, [facility] [address] [id number] [address] [place] [address], [place] [address] Sep, [facility] [address] [id number] [address] [place] [address], [place] [address] Sep, [facility] [address] [id number] [address] [place] [address], [place] [address] Aug, [facility] [address] [id number] [place] [address] 30 Aug, 2013 [facility] [address] [id number] [address] [place] [address], [place] [address] 29 Aug, 2014 [facility] [address] [id number] [address] [place] [address], [place] [address] 29 Aug, 2014 [facility] [address] [id number] [address] [place] [address], [place] [address] 28 Aug, 2014 [facility] [address] [id number] [address] [place] [address], [place] [address] 28 Aug, 2014 [facility] [address] [id number] [address] [place] [address], [place] [address] 17 Aug, 2014 [facility] [address] [id number] [address] [place] [address], [place] [address] 17 Aug, 2013 [facility] [address] [id number] [address] [place] [address], [place] [address] 30 Jul, 2013 [facility] [address] [id number] [address] [place] [address], [place] [address] 30 Sep, 2013 [facility] [address] [id number] [address] [place] [address], [place] [address] 30 Sep, 2013 [facility] [address] [id number] [address] [place] [address], [place] [address] 30 Sep, 2013 [facility] [address] [id number] [address] [place] [address], [place] [address] 25 Sep, 2013 [facility] [address] [id number] [address] [place] [address] 25 Sep, 2013 [facility] [address] [id number] [address] [place] [address], [place] [address] 15 Sep, 2013 [facility] [address] [id number] [address] [place] [address], [place] [address] 15 Sep, 2013 [facility] [address] [id number] [address] [place] [address], [place] [address] 11 Jul, 2013 [facility] [address] [id number] [facility] [address] Jul, [facility] [address] [id number] [facility] [place] [address] Jun, [facility] [address] [id number] [facility] [address] Jun, [facility] [address] [id number] [address] [place] [address], [place] [address] Jun, [facility] [address] [id number] [address] [place] [address], [place] [address] Jun, [facility] [address] [id number] [address] [place] [address], [place] [address] Jun, [facility] [address] [id number] [address] [place] [address], [place] [address] Jun, [facility] [address] [id number] [address] [place] [address], [place] [address] Jun, [facility] [address] [id number] [address] [place] [address], [place] [address] Jun, [facility] [address] [id number] [address] [place] [address], [place] [address] Jun, [facility] [address] [id number] [address] [place] [address], [place] [address] Jun, [facility] [address] [id number] [address] [place] [address], [place] [address] Jun, [facility] [address] [id number] [address] [place] [address], [place] [address] Jun, [facility] [address] [id number] [address] [place] [address], [place] [address] Jun, [facility] [address] [id number] [address] [place] [address], [place] [address] Jun, [facility] [address] [id number] [address] [place] [address], [place] [address] Jun, [facility] [address] [id number] [facility] [place] [address] Jun, [facility] [address] [id number] [address] [place] [address], [place] [address] Jun, [facility] [address] [id number] [address] [place] [address], [place] [address] Jun, [facility] [address] [id number] [address] [place] [address], [place] [address] Jun, [facility] [address] [id number] [address] [place] [address], [place] [address] Jun, [facility] [address] [id number] [address] [place] [address], [place] [address] Jun, [facility] [address] [id number] [address] [place] [address], [place] [address] Jun, [facility] [address] [id number] [address] [place] [address], [place] [address] May, [facility] [address] [id number] [address] [place] [address], [place] [address] May, [facility] [address] [id number] [address] [place] [address], [place] [address] May, [facility] [address] [id number] [address] [place] [address], [place] [address] May, [facility] [address] [id number] [address] [place] [address], [place] [address] May, [facility] [address] [id number] [address] [place] [address], [place] [address] May, [facility] [address] [id number] [address] [place] [address], [place] [address] May, [facility] [address] [id number] [address] [place] [address], [place] [address] May, [facility] [address] [id number] [address] [place] [address], [place] [address] May, [facility] [address] [id number] [facility] [place] [address] May, [facility] [address] [id number] [address] [place] [address], [place] [address] May, [facility] [address] [id number] [address] [place] [address], [place] [address] May, [facility] [address] [id number] [address] [place] [address], [place] [address] May, [facility] [address] [id number] [address] [place] [address], [place] [address] Apr, [facility] [address] [id number] [address] [place] [address], [place] [address] Apr, [facility] [address] [id number] [address] [place] [address], [place] [address] Apr, [facility] [address] [id number] [address] [place] [address], [place] [address] Apr, [facility] [address] [id number] [address] [place] [address], [place] [address] Apr, [facility] [address] [id number] [address] [place] [address], [place] [address] Apr, [facility] [address] [id number] [address] [place] [address], [place] [address] Apr, [facility] [address] [id number] [address] [place] [address], [place] [address] Apr, [facility] [address] [id number] [address] [place] [address], [place] [address] Apr, [facility] [address] [id number] [address] [place] [address], [place] [address] March, [facility] [address] [id number] [address] [place] [address], [place] [address] March, [facility] [address] [id number] [facility] [place] [address] March, [facility] [address] [id number] [facility] [place] [address] March, [facility] [address] [id number] [facility] [place] [address] March, [facility] [address] [id number] [address] [place] [address], [place] [address] March, [facility] [address] [id number] [facility] [address] March, [facility] [address] [id number] [address] [place] [address], [place] [address] March, [facility] [address] [id number] [address] [place] [address], [place] [address] March, [facility] [address] [id number] [address] [place] [address], [place] [address] March, [facility] [address] [id number] [address] [place] [address], [place] [address] March, [facility] [address] [id number] [address] [place] [address], [place] [address] March, [facility] [address] [id number] [address] [place] [address], [place] [address] March, [facility] [address] [id number] [address] [place] [address], [place] [address] March, [facility] [address] [id number] [address] [place] [address], [place] [address] March, [facility] [address] [id number] [address] [place] [address], [place] [address] March, [facility] [address] [id number] [address] [place] [address], [place] [address] March, [facility] [address] [id number] [address] [place] [address], [place] [address] March, [facility] [address] [id number] [facility] [address] March, [facility] [address] [id number] [facility] [address] March, [facility] [address] [id number] [facility] [address] Feb, [facility] [address] [id number] [address] [place] [address], [place] [address] Feb, [facility] [address] [id number] [address] [place] [address], [place] [address] Feb, [facility] [address] [id number] [address] [place] [address], [place] [address] Feb, [facility] [address] [id number] [address] [place] [address], [place] [address] Feb, [facility] [address] [id number] [address] [place] [address], [place] [address] Feb, [facility] [address] [id number] [address] [place] [address], [place] [address] Feb, [facility] [address] [id number] [address] [place] [address], [place] [address] Feb, [facility] [address] [id number] [address] [place] [address], [place] [address] Jan, [facility] [address] [id number] [address] [place] [address], [place] [address] Jan, [facility] [address] [id number] [address] [place] [address], [place] [address] Jan, [facility] [address] [id number] [address] [place] [address], [place] [address] 24 Jan, 2014 [facility] [address] [id number] [address] [place] [address], [place] [address] 13 Jan, 2014 [facility] [address] [id number] [facility] [place] [address] 13 Jan, 2014 [facility] [address] [id number] [facility] [place] [address] 11 Jan, 2014 [facility] [address] [id number] [facility] [place] [address] Jan, [facility] [address] [id number] [address] [place] [address], [place] [address] Jan, [facility] [address] [id number] [address] [place] [address], [place] [address] 03 Jan, 2014 [facility] [address] [id number] [address] [place] [address], [place] [address] 27 Dec, 2013 [facility] [address] [id number] [address] [place] [address], [place] [address] Dec, [facility] [address] [id number] [address] [place] [address], [place] [address] Dec, [facility] [address] [id number] [address] [place] [address], [place] [address] 2013 [facility] [address] [id number] [address] [place] [address] [address] 2013 [facility] [address] [id number] [address] [place] [address], [place] [address] Dec, [facility] [address] [id number] [address] [place] [address], [place] [address] Dec, [facility] [address] [id number] [address] [place] [address], [place] [address] Dec, [facility] [address] [id number] [address] [place] [address], [place] [address] Nov, [facility] [address] [id number] [address] [place] [address], [place] [address] Nov, [facility] [address] [id number] [address] [place] [address], [place] [address] Nov, [facility] [address] [id number] [address] [place] [address], [place] [address] Nov, [facility] [address] [id number] [address] [place] [address], [place] [address] Nov, [facility] [address] [id number] [address] [place] [address], [place] [address] Nov, [facility] [address] [id number] [address] [place] [address], [place] [address] Nov, [facility] [address] [id number] [address] [place] [address], [place] [address] Nov, [facility] [address] [id number] [address] [place] [address], [place] [address] Nov, [facility] [address] [id number] [address] [place] [address], [place] [address] Nov, [facility] [address] [id number] [address] [place] [address], [place] [address] Nov, [facility] [address] [id number] [address] [place] [address], [place] [address] Nov, [facility] [address] [id number] [address] [place] [address], [place] [address] Nov, [facility] [address] [id number] [address] [place] [address], [place] [address] Oct, [facility] [address] [id number] [address] [place] [address], [place] [address] Oct, [facility] [address] [id number] [address] [place] [address], [place] [address] Oct, [facility] [address] [id number] [address] [place] [address], [place] [address] Oct, [facility] [address] [id number] [address] [place] [address], [place] [address] Oct, [facility] [address] [id number] [address] [place] [address], [place] [address] 23 Oct, 2013 [facility] [address] [id number] [address] [place] [address], [place] [address] 18 Oct, 2013 [facility] [address] [id number] [address] [place] [address], [place] [address] 18 Oct, 2013 [facility] [address] [id number] [address] [place] [address], [place] [address] 17 Oct, 2013 [facility] [address] [id number] [address] [place] [address], [place] [address] 17 Oct, 2013 [facility] [address] [id number] [address] [place] [address], [place] [address] Oct, [facility] [address] [id number] [address] [place] [address], [place] [address] Oct, [facility] [place] [address] [id number] [address] [place] [address], [place] [address] 02 Oct, 2013 [facility] [place] [address] [id number] [address] [place] [address], [place] [address] 02 Oct, 2013 [facility] [address] [id number] [address] [place] [address], [place] [address] 14 Sep, 2013 [facility] [place] [address] [id number] [address] [place] [address], [place] [address] 14 Sep, 2013 [facility] [place] [address] [id number] [address] [place] [address], [place] [address] 05 Sep, 2013 [facility] [address] [id number] [address] [place] [address], [place] [address] 05 Sep, 2013 [facility] [address] [id number] [address] [place] [address], [place] [address] 04 Sep, 2013 [facility] [address] [id number] [address] [place] [address], [place] [address] 04 Sep, 2013 [facility] [address] [id number] [address] [place] [address], [place] [address] 04 Sep, 2013 [facility] [address] [id number] [address] [place] [address], [place] [address] Sep, [facility] [address] [id number] [address] [place] [address], [place] [address] Sep, [facility] [address] [id number] [address] [place] [address], [place] [address] Sep, [facility] [address] [id number] [address] [place] [address], [place] [address] Aug, [facility] [address] [id number] [address] [place] [address], [place] [address] Aug, [facility] [address] [id number] [address] [place] [address], [place] [address] Aug, [facility] [address] [id number] [address] [place] [address], [place] [address] Aug, [facility] [address] [id number] [address] [place] [address], [place] [address] Aug, [facility] [address] [id number] [address] [place] [address], [place] [address] Aug, [facility] [address] [id number] [address] [place] [address], [place] [address] Aug, [facility] [address] [id number] [address] [place] [address], [place] [address] Aug, [facility] [address] [id number] [address] [place] [address], [place] [address] Aug, [facility] [address] [id number] [address] [place] [address], [place] [address] Aug, [facility] [address] [id number] [address] [place] [address], [place] [address] Aug, [facility] [address] [id number] [address] [place] [address], [place] [address] Aug, [facility] [address] [id number] [address] [place] [address] 18 Aug, 2013 [facility] [address] [id number] [address] [place] [address], [place] [address] 18 Aug, 2013 [facility] [address] [id number] [address] [place] [address], [place] [address] 17 Aug, 2013 [facility] [address] [id number] [address] [place] [address], [place] [address] 14 Aug, 2013 [facility] [address] [id number] [address] [place] [address], [place] [address] 14 Aug, 2013 [facility] [address] [id number] [address] [place] [address], [place] [address] 01 Aug, 2013 [facility] [address] [id number] [address] [place] [address], [place] [address] 20 Jul, 2013 [facility] [address] [id number] [address] [place] [address], [place] [address] 19 Jul, 2013 [facility] [address] [id number] [address] [place] [address], [place] [address] 18 Jul, 2013 [facility] [address] [id number] [address] [place] [address], [place] [address] 11 Jul, 2013 [facility] [address] [id number] [address] [place] [address], [place] [address] 11 Jul, 2013 [facility] [address] [id number] [address] [place] [address], [place] [address] 28 Jun, 2013 [facility] [address] [id number] [address] [place] [address], [place] [address] Jun, [facility] [address] [id number] [address] [place] [address], [place] [address] 23 Jun, 2013 [facility] [address] [id number] [address] [place] [address], [place] [address] 15 Jun, 2013 [facility] [address] [id number] [address] [place] [address], [place] [address] 14 Jun, 2013 [facility] [address] [id number] [facility] [place] [address] Jun, [facility] [place] [address] [id number] [address] [place] [address], [place] [address] Jun, [facility] [place] [address] [id number] [address] [place] [address], [place] [address] Jun, [facility] [place] [address] [id number] [address] [place] [address], [place] [address] Jun, [facility] [address] [id number] [address] [place] [address], [place] [address] Jun, [facility] [place] [address] [id number] [address] [place] [address], [place] [address] May, [facility] [place] [address] [id number] [address] [place] [address], [place] [address] May, [facility] [place] [address] [id number] [address] [place] [address], [place] [address] May, [facility] [address] [id number] [address] [place] [address], [place] [address] May, [facility] [place] [address] [id number] [address] [place] [address], [place] [address] May, [facility] [address] [id number] [address] [place] [address], [place] [address] May, [facility] [place] [address] [id number] [address] [place] [address], [place] [address] May, [facility] [address] [id number] [address] [place] [address], [place] [address] May, [facility] [address] [id number] [address] [place] [address], [place] [address] May, [facility] [address] [id number] [address] [place] [address], [place] [address] Apr, [facility] [address] [id number] [address] [place] [address], [place] [address] Apr, [facility] [place] [address] [id number] [address] [place] [address], [place] [address] Apr, [facility] [address] [id number] [address] [place] [address], [place] [address] Apr, [facility] [address] [id number] [address] [place] [address], [place] [address] Apr, [facility] [address] [id number] [address] [place] [address], [place] [address] Apr, [facility] [address] [id number] [address] [place] [address], [place] [address] Apr, [facility] [address] [id number] [address] [place] [address], [place] [address] March, [facility] [place] [address] [id number] [address] [place] [address], [place] [address] Feb, [facility] [place] [address] [id number] [address] [place] [address], [place] [address] Feb, [facility] [place] [address] [id number] [address] [place] [address], [place] [address] Feb, [facility] [place] [address] [id number] [address] [place] [address], [place] [address] Jan, [facility] [place] [address] [id number] [address] [place] [address], [place] [address] Jan, [facility] [address] [id number] [address] [place] [address], [place] [address] Jan, [facility] [address] [id number] [address] [place] [address], [place] [address] 14 Jan, 2013 [facility] [address] [id number] [address] [place] [address], [place] [address] 12 Jan, 2013 [facility] [address] [id number] [address] [place] [address], [place] [address] 08 Jan, 2013 [facility] [address] [id number] [address] [place] [address], [place] [address] 07 Jan, 2013 [facility] [place] [address] [id number] [address] [place] [address], [place] [address] 04 Jan, 2013 [facility] [address] [id number] [address] [place] [address], [place] [address] 28 Dec, 2012 [facility] [place] [address] [id number] [address] [place] [address], [place] [address] 25 Dec, 2012 [facility] [address] [id number] [address] [place] [address], [place] [address] 13 Dec, 2012 [facility] [address] [id number] [address] [place] [address], [place] [address] 11 Dec, 2012 [facility] [place] [address] [id number] [address] [place] [address], [place] [address] 07 Dec, 2012 [facility] [place] [address] [id number] [address] [place] [address], [place] [address] 06 Dec, 2012 [facility] [place] [address] [id number] [address] [place] [address], [place] [address] 05 Dec, 2012 [facility] [place] [address] [id number] [address] [place] [address], [place] [address] Nov, [facility] [address] [id number] [address] [place] [address], [place] [address] 24 Nov, 2012 [facility] [place] [address] [id number] [address] [place] [address], [place] [address] 18 Nov, 2012 [facility] [place] [address] [id number] [address] [place] [address], [place] [address] 15 Nov, 2012 [facility] [address] [id number] [address] [place] [address], [place] [address] 10 Nov, 2012 [facility] [address] [id number] [address] [place] [address], [place] [address] 10 Nov, 2012 [facility] [address] [id number] [address] [place] [address], [place] [address] Nov, [facility] [address] [id number] [address] [place] [address], [place] [address] Oct, [facility] [address] [id number] [address] [place] [address], [place] [address] Oct, [facility] [address] [id number] [address] [place] [address], [place] [address] Oct, [facility] [address] [id number] [address] [place] [address], [place] [address] Oct, [facility] [address] [id number] [address] [place] [address], [place] [address] Oct, [facility] [address] [id number] [address] [place] [address], [place] [address] Oct, [facility] [place] [address] [id number] [address] [place] [address], [place] [address] Oct, [facility] [place] [address] [id number] [address] [place] [address], [place] [address] Oct, [facility] [place] [address] [id number] [address] [place] [address], [place] [address] Oct, [facility] [address] [id number] [address] [place] [address], [place] [address] Oct, [facility] [address] [id number] [address] [place] [address], [place] [address] Oct, [facility] [address] [id number] [address] [place] [address], [place] [address] Oct, [facility] [address] [id number] [address] [place] [address], [place] [address] Sep, [facility] [address] [id number] [address] [place] [address], [place] [address] Sep, [facility] [address] [id number] [address] [place] [address], [place] [address] Sep, [facility] [address] [id number] [address] [place] [phone] Sep, [facility] [address] [id number] [address] [place] [id number] Sep, [facility] [address] [id number] [address] [place] [id number] Sep, [facility] [address] [id number] [address] [place] [id number] Sep, [facility] [address] [id number] [address] [place] [id number] Sep, [facility] [address] [id number] [address] [place] [address], [place] [address] Sep, [facility] [address] [id number] [address] [place] [phone] Sep, [facility] [address] [id number] [address] [place] [id number] Sep, [facility] [address] [id number] [address] [place] [phone] Aug, [facility] [address] [id number] [address] [place] [phone] Aug, [facility] [address] [id number] [address] [place] [id number] Aug, [facility] [address] [id number] [address] [place] [phone] Aug, [facility] [address] [id number] [address] [place] [id number] Aug, [facility] [address] [id number] [address] [place] [phone] Aug, [facility] [address] [id number] [address] [place] [phone] Aug, [facility] [address] [id number] [address] [place] [phone] Aug, [facility] [address] [id number] [address] [place] [address], [place] [address] Aug, [facility] [address] [id number] [address] [place] [address], [place] [address] Aug, [facility] [address] [id number] [address] [place] [address], [place] [address] Jul, [facility] [address] [id number] [address] [place] [address], [place] [address] Jul, [facility] [address] [id number] [address] [place] [address], [place] [address] Jul, [facility] [address] [id number] [address] [place] [address], [place] [address] Jul, [facility] [address] [id number] [address] [place] [address], [place] [address] Jun, [facility] [address] [id number] [address] [place] [address], [place] [address] Jun, [facility] [address] [id number] [address] [place] [address], [place] [address] Jun, [facility] [address] [id number] [address] [place] [address], [place] [address] Jun, [facility] [address] [id number] [address] [place] [address], [place] [address] Jun, [facility] [address] [id number] [address] [place] [address], [place] [address] Jun, [facility] [address] [id number] [address] [place] [address], [place] [address] Jun, [facility] [address] [id number] [address] [place] [address], [place] [address] May, [facility] [address] [id number] [address] [place] [address], [place] [address] May, [facility] [address] [id number] [address] [place] [address], [place] [address] May, [facility] [address] [id number] [address] [place] [address], [place] [address] May, [facility] [address] [id number] [address] [place] [address], [place] [address] May, [facility] [address] [id number] [address] [place] [address], [place] [address] Apr, [facility] [address] [id number] [address] [place] [address], [place] [address] Apr, [facility] [address] [id number] [address] [place] [address], [place] [address] Apr, [facility] [address] [id number] [address] [place] [address], [place] [address] Apr, [facility] [address] [id number] [address] [place] [address], [place] [address] Apr, [facility] [address] [id number] [address] [place] [address], [place] [address] March, [facility] [address] [id number] [address] [place] [address], [place] [address] March, [facility] [address] [id number] [address] [place] [address], [place] [address] March, [facility] [address] [id number] [address] [place] [address], [place] [address] March, [facility] [address] [id number] [address] [place] [address], [place] [address] March, [facility] [address] [id number] [address] [place] [address], [place] [address] March, [facility] [address] [id number] [address] [place] [address], [place] [address] March, [facility] [address] [id number] [address] [place] [address], [place] [address] March, [facility] [address] [id number] [address] [place] [address], [place] [address] March, [facility] [address] [id number] [address] [place] [address], [place] [address] March, [facility] [address] [id number] [address] [place] [address], [place] [address] 30 Feb, 2012 [facility] [address] [id number] [address] [place] [address], [place] [address] Feb, [facility] [address] [id number] [address] [place] [address], [place] [address] Feb, [facility] [address] [id number] [address] [place] [address], [place] [address] Feb, [facility] [address] [id number] [address] [place] [address], [place] [address] Feb, [facility] [address] [id number] [address] [place] [address], [place] [address] Feb, [facility] [place] [address] [id number] [address] [place] [address], [place] [address] Feb, [facility] [address] [id number] [address] [place] [address], [place] [address] Feb, [facility] [place] [address] [id number] [address] [place] [address], [place] [address] Feb, [facility] [address] [id number] [address] [place] [address], [place] [address] 08 Jan, 2012 [facility] [address] [id number] [address] [place] [address], [place] [address] Jan, [facility] [address] [id number] [address] [place] [address], [place] [address] 05 Jan, 2012 [facility] [address] [id number] [address] [place] [address], [place] [address] Jan, [facility] [address] [id number] [address] [place] [address], [place] [address] Dec, [facility] [place] [address] [id number] [address] [place] [phone] Dec, [facility] [place] [address] [id number] [address] [place] [phone] Nov, [facility] [place] [address] [id number] [address] [place] [phone] Nov, [facility] [place] [address] [id number] [address] [place] [phone] Nov, [facility] [place] [address] [id number] [address] [place] [phone] Nov, [facility] [place] [address] [id number] [address] [place] [phone] Nov, [facility] [place] [address] [id number] [address] [place] [phone] Oct, [facility] [place] [address] [id number] [address] [place] [phone] Oct, [facility] [place] [address] [id number] [address] [place] [phone] Oct, [facility] [place] [address] [id number] [address] [place] [phone] Oct, [facility] [place] [address] [id number] [address] [place] [phone] Oct, [facility] [place] [address] [id number] [address] [place] [phone] Oct, [facility] [place] [address] [id number] [address] [place] [phone] Oct, [facility] [place] [address] [id number] [address] [place] [phone] Oct, [facility] [place] [address] [id number] [address] [place] [phone] Sep, IMMUNIZATIONS No Known Immunizations SOCIAL HISTORY Never Assessed REASON FOR VISIT [place] refill Tramadol PLAN OF CARE VITAL SIGNS MEDICATIONS Medication Instructions Dosage Frequency Start Date End Date Duration Jd shah Tramadol HCl 50 MG Orally 3 times [...] information Hospitalization History [facility]- Urosepsis, ab d pain and fever, discharged 11/27/2017 11/26/2017 Hospitalization History [facility]- Went Unrepsonsive, Hit head 2017 Hospitalization History [facility]- Back Pain 8
--- OUTSIDE RECORDS SUMMARY | 2020-06-18 14:33 | XMS REPORT ---
Author Author Sanjuanita Sanchez [facility] Address [address] [place] [address] Care Team Providers Care Quarantine Inspector Name Role Phone MARIA DE JESUS Sanchez Unavailable PROBLEMS Type Condition ICD9-CM Code USY22-WG Code Onset Dates Condition S tatus SNOMED Code Problem Hypertension I10 Active 3328161 3 Problem Hyperlipidemia E78.5 Active 19170 004 Problem Coronary artery disease I25.10 Active 99952656 Problem Low back pain M54.5 Active 986023 009 Problem Other chronic pain G89.29 Active 8 9243167 Problem Ventral hernia without obstruction or gangrene K43 .9 Active 307742806 Problem Type 2 diabetes mellitus wit hout complication, without long-term current use of insulin E11.9 Active 777011738 Problem Anxiety F41.9 Active 73127446 Problem Peripheral vascular disease I73.9 Ac tive 109838530 Problem Insomnia G47.00 Active 742546949 Problem Microcytic anemia D50.9 Active 23 7180095 Problem Pharyngeal dysphagia R13.13 Active 98482909440513 Problem Other iron deficiency anemia D50.8 A ctive 73297322 Problem Reactive depression F32.9 Active 20731236 Problem Paroxysmal atrial fibrillation I48.0 Active 728207070 Problem 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 Active 97900285 Problem Encounter for suprapubic catheter care Z43.5 Active 614508963 Problem Neurogenic bladder N31.9 Active 3 29253556 ALLERGIES No Information ENCOUNTERS Encounter Location Date Diagnosis [facility] [address] [facility] [id number] [address] [place] [address] May, [facility] [address] [facility] [id number] [address] [place] [address] May, Strain of right shoulder, scherer bsequent encounter S46.911D and Anxiety F41.9 [facility] [address] [id number] [address] [place] [address] 17 Apr, 2020 Anxiety F41.9 and Strain of right shoulder, subsequent encounter S46.911D [facility] [address] [id number] [address] [place] [address] 04 Apr, 2020 [facility] [address] [id number] [address] [place] [address] March, [facility] [address] [id number] [address] [place] [address] March, Anxiety F41.9 and Strain of right shoulder, subsequent encounter S46.911D [facility] [address] [id number] [address] [place], [place] [address] Feb, Anxiety F41.9 and Strain of right shoulder, subsequent encounter S46.911D [facility] [address] [id number] [address] [place] [address] Jan, Anxiety F41.9 and Strain of right shoulder, subsequent encounter S46.911D [facility] [address] [id number] [address] [place] [address] Jan, [facility] [address] [facility] [place] [id number] Jan, Neurogenic bladder N31.9 [facility] [address] [id number] [address] [place] [address] Dec, [facility] [address] [id number] [address] [place] [address] Dec, [facility] [address] [id number] [address] [place] [address] 24 Dec, 2019 Anxiety F41.9 and Strain of right shoulder, subsequent encounter S46.911D [facility] [address] [id number] [address] [place] [address] 10 Dec, 2019 Other iron deficiency anemia D50.8 [facility] [address] [id number] [address] [place] [address] Dec, Via [facility] [place] [facility] [address] [place] [id number] Dec, Encounter for suprapubic catheter care Z 43.5 and Microcytic anemia D50.9 [place] [address] [id number] [address] [place] [address] Dec, [facility] [address] [id number] [address] [place] [address] Nov, Anxiety F41.9 and Strain of right shoulder, subsequent encounter S46.911D [place] [address] [id number] [address] [place] [address] Nov, Hypertension I10 Via [facility] [place] [facility] [address] [place] [id number] Nov, Pneumonia of both lungs due to infectiou s organism, unspecified part of lung J18.9 and Suprapubic catheter Z93.59 [place] [address] [id number] [address] [place] [address] Nov, Hypertension I10 and Reactiv e depression F32.9 [place] [address] [id number] [address] [place] [address] Oct, Strain of right shoulder, scherer bsequent encounter S46.911D and Anxiety F41.9 [place] [address] [id number] [address] [place] [address] Oct, Via [facility] [place] [facility] [address] [place] [id number] Oct, Suprapubic catheter Z93.59 and Candidias is, intertriginous B37.2 [place] [address] [id number] [address] [place] [address] Oct, Suprapubic catheter Z93.59 [place] [address] [id number] [address] [place] [address] Oct, Anxiety F41.9 and Strain of right shoulder, subsequent encounter S46.911D [facility] [address] [id number] [address] [place] [address] Sep, [facility] [address] [id number] [address] [place] [address] Sep, [facility] [address] [id number] [address] [place] [address] Sep, Via [facility] [address] [place] [id number] Sep, Suprapubic catheter Z93.59 [facility] [address] [id number] [address] [place] [address] Sep, Anxiety F41.9 and Strain of right shoulder, subsequent encounter S46.911D [facility] [address] [id number] [address] [place] [address] Aug, [facility] [address] [id number] [address] [place] [address] Aug, [facility] [address] [id number] [address] [place] [address] Aug, Anxiety F41.9 and Strain of right shoulder, subsequent encounter S46.911D Via [facility] [address] [place] [id number] Aug, Suprapubic catheter Z93.59 [facility] [address] [id number] [address] [place] [address] Jul, Strain of right shoulder, scherer bsequent encounter S46.911D and Anxiety F41.9 [facility] [address] [id number] [address] [place] [address] Jul, Anxiety F41.9 [facility] [address] [id number] [address] [place] [address] Jun, [facility] [address] [id number] [address] [place] [address] Jun, [facility] [address] [id number] [address] [place] [address] Jun, [place] [address] [id number] [address] [place] [address] Jun, Strain of right shoulder, scherer bsequent encounter S46.911D [place] [address] [id number] [address] [place] [address] Jun, Strain of right shoulder, scherer bsequent encounter S46.911D [place] [address] [id number] [address] [place] [address] Jun, Anxiety F41.9 [facility] [address] [place] [id number] Jun, Neurogenic bladder N31.9 and Anxiety F41 .9 Via [facility] [address] [place] [id number] May, Anxiety F41.9 [place] [address] [id number] [address] [place] [address] May, Dysuria R30.0 [place] [address] [id number] [address] [place] [address] May, Strain of right shoulder, scherer bsequent encounter S46.911D and Anxiety F41.9 [place] [address] [id number] [address] [place] [address] Apr, Via [facility] [employer] [address] [place] [id number] Apr, Strain of right shoulder, subsequent enc ounter S46.911D [place] [address] [id number] [address] [place] [address] Apr, Strain of right shoulder, scherer bsequent encounter S46.911D and Anxiety F41.9 Via [facility] [employer] [address] [place] [id number] Apr, Type 2 diabetes mellitus without complic ation, without long-term current use of insulin E11.9 and Neurogenic bladder N31.9 Via [facility] [address] [place] [id number] Apr, Strain of right shoulder, subsequent enc ounter S46.911D ; History of GI bleed Z87.19 ; Neurogenic bladder N31.9 and Reactive depression F32.9 [facility] [address] [id number] [address] [place] [address] 10 Apr, 2019 Acute pain of left shoulder M25.512 [facility] [address] [id number] [address] [place] [address] Apr, [facility] [address] [id number] [address] [place] [address] Apr, Anxiety F41.9 and 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29 [facility] [address] [id number] [address] [place] [address] March, Anxiety F41.9 [facility] [address] [id number] [address] [place] [address] March, [facility] [address] [id number] [address] [place] [address] Feb, Other chronic pain G89.29 [facility] [address] [id number] [address] [place] [address] Feb, Anxiety F41.9 [facility] [address] [id number] [address] [place] [address] Feb, Other chronic pain G89.29 Via [facility] [place] [facility] [address] [place] [id number] Feb, Neurogenic bladder N31.9 and Suprapubic catheter Z93.59 [facility] [address] [id number] [address] [place] [address] Jan, Anxiety F41.9 [facility] [address] [id number] [address] [place] [address] Dec, Anxiety F41.9 [facility] [address] [id number] [address] [place] [address] Dec, Other chronic pain G89.29 an d Anxiety F41.9 [facility] [address] [id number] [address] [place] [address] Dec, Via [employer] [facility] [address] [place] [id number] Dec, Neurogenic bladder N31.9 and Suprapubic catheter Z93.59 [facility] [address] [id number] [address] [place] [address] Nov, Other chronic pain G89.29 an d Anxiety F41.9 [facility] [address] [id number] [address] [place] [address] Nov, Via [facility] [address] [place] [id number] Nov, Suprapubic catheter Z93.59 [facility] [address] [id number] [address] [place] [address] Oct, Other chronic pain G89.29 an d Anxiety F41.9 [facility] [address] [id number] [address] [place] [address] Oct, [facility] [address] [id number] [address] [place] [address] Oct, Suprapubic catheter Z93.59 [facility] [address] [id number] [address] [place] [address] Oct, Via [employer] [facility] [employer] [address] [place] [id number] Oct, [facility] [address] [id number] [address] [place] [address] Oct, Anxiety F41.9 [facility] [address] [id number] [address] [place] [address] Oct, Anxiety F41.9 Via [employer] [facility] [employer] [address] [place] [id number] Oct, Other chronic pain G89.29 [facility] [address] [id number] [address] [place] [address] Sep, Other chronic pain G89.29 Via [employer] [facility] [employer] [address] [place] [id number] Sep, Suprapubic catheter Z93.59 and Cervicalg ia M54.2 [facility] [address] [id number] [address] [place] [address] Sep, [facility] [address] [id number] [address] [place] [address] Sep, [facility] [address] [id number] [address] [place] [address] Sep, Via [employer] [facility] [employer] [address] [place] [id number] Aug, Cystitis N30.90 [facility] [address] [id number] [address] [place] [address] Aug, [facility] [address] [id number] [address] [place] [address] Aug, Other chronic pain G89.29 [facility] [address] [id number] [address] [place] [address] Aug, Via [facility] [address] [place] [id number] Aug, Encounter for suprapubic catheter care Z 43.5 [facility] [address] [id number] [address] [place] [address] Jul, Via [facility] [address] [place] [id number] Jul, [facility] [address] [id number] [address] [place] [address] Jul, Other chronic pain G89.29 [facility] [address] [id number] [address] [place] [address] Jul, [facility] [address] [id number] [address] [place] [address] Jul, Via [facility] [address] [place] [id number] Jun, 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 [facility] [address] [id number] [address] [place] [address] Jun, Other chronic pain G89.29 [facility] [address] [id number] [address] [place] [address] Jun, Via [facility] [address] [place] [id number] May, Anxiety F41.9 ; Type 2 diabetes mellitus without complication, without long-term current use of insulin E11.9 ; Hypertension I10 ; Low back pain M54.5 ; Paroxysmal atrial fibrillation I48.0 and 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 [facility] [address] [id number] [address] [place] [address] May, Other chronic pain G89.29 Via [facility] [address] [place] [id number] May, Low back pain M54.5 [facility] [address] [id number] [address] [place] [address] May, [facility] [address] [id number] [address] [place] [address] Apr, Other chronic pain G89.29 [facility] [address] [id number] [address] [place] [address] Apr, [facility] [address] [id number] [address] [place] [address] Apr, Via [facility] [address] [place] [id number] Apr, Closed compression fracture of L3 lumbar vertebra with routine healing, subsequent encounter S32.030D [facility] [address] [place] [id number] Apr, Low back pain M54.5 [facility] [address] [place] [id number] Apr, Coccydynia M53.3 [facility] [address] [id number] [address] [place] [address] March, [facility] [address] [id number] [address] [place] [address] March, Other chronic pain G89.29 [facility] [address] [id number] [address] [place] [address] March, [facility] [address] [id number] [address] [place] [address] March, [facility] [address] [id number] [address] [place] [address] Feb, [facility] [address] [id number] [address] [place] [address] Feb, Other chronic pain G89.29 [facility] [address] [place] [id number] Feb, Other chronic pain G89.29 and Anxiety F4 1.9 [facility] [address] [id number] [address] [place] [address] Feb, [facility] [address] [id number] [address] [place] [address] Jan, [facility] [address] [facility] [id number] [address] [place] [address] Jan, [facility] [address] [facility] [id number] [address] [place] [address] Jan, [facility] [address] [facility] [id number] [address] [place] [address] Jan, [facility] [address] 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 [id number] [address] [place] [address] Nov, [facility] [address] [id number] [place] [id number] Nov, Anxiety F41.9 Via [facility] [facility] [address] [place] [id number] Nov, Status post surgery Z98.890 ; Confused R 41.0 ; Anxiety F41.9 and Other chronic pain G89.29 [facility] [address] [id number] [place] [id number] Nov, Other chronic pain G89.29 [facility] [address] [facility] [id number] [address] [place] [address] Oct, [facility] [address] [id number] [place] [id number] Oct, Other chronic pain G89.29 [facility] [address] [id number] [address] [place] [address], [place] [address] Oct, Anxiety F41.9 [facility] [address] [id number] [place] [id number] Sep, Other chronic pain G89.29 [facility] [address] [id number] [place] [id number] Sep, Via [facility] [address] [place] [id number] Aug, Dysuria R30.0 and Anxiety F41.9 [facility] [address] [id number] [address] [place] [address], [place] [address] Aug, [facility] [address] [id number] [place] [id number] Aug, Other chronic pain G89.29 [facility] [address] [id number] [address] [place] [address], [place] [address] Jul, Other chronic pain G89.29 [facility] [address] [id number] [place] [id number] Jun, [facility] [address] [id number] [place] [id number] Jun, Other chronic pain G89.29 [facility] [address] [id number] [address] [place] [address], [place] [address] Jun, [facility] [address] [id number] [address] [place] [address] May, Other chronic pain G89.29 [facility] [address] [id number] [address] [place] [address], [place] [address] Apr, Other chronic pain G89.29 [facility] [address] [place] [id number] Apr, Reactive depression F32.9 and Pharyngeal dysphagia R13.13 [facility] [address] [facility] [id number] [address] [place] [address] Apr, Urinary tract infection with out hematuria, site unspecified N39.0 [facility] [address] [facility] [id number] [address] [place] [address] March, Other chronic pain G89.29 [facility] [address] [id number] [address] [place] [address] Feb, Other chronic pain G89.29 [facility] [address] [facility] [id number] [address] [place] [address] Feb, [facility] [address] [place] [id number] [place] [id number] Feb, Via [facility] [address] [place] [id number] Feb, Dysuria R30.0 and Ventral hernia without obstruction or gangrene K43.9 [facility] [address] [facility] [id number] [address] [place] [address] Jan, Other chronic pain G89.29 [facility] [address] [place] [id number] [place] [id number] Dec, Other chronic pain G89.29 [facility] [address] [facility] [id number] [address] [place] [address] Nov, Other chronic pain G89.29 [facility] [address] [place] [id number] Nov, Lymphadenitis I88.9 [facility] [address] [facility] [id number] [address] [place] [id number] Nov, Other chronic pain G89.29 [facility] [address] [id number] [address] [place] [phone] Nov, [facility] [address] [id number] [id number] Nov, Other chronic pain G89.29 Via [facility] [address] [place] [id number] Oct, Low back pain M54.5 ; Hypertension I10 a nd Type 2 diabetes mellitus without complication, without long-term current use of insulin E11.9 [facility] [address] [id number] [address] [place] [id number] Oct, [facility] [address] [id number] [address] [place] [id number] Oct, [facility] [address] [id number] [address] [place] [id number] Oct, [facility] [address] [id number] [address] [place] [id number] Oct, [facility] [address] [id number] [address] [place] [id number] Sep, [facility] [address] [id number] [address] [place] [address] Sep, [facility] [address] [id number] [address] [place] [address] Aug, Other chronic pain G89.29 [facility] [address] [id number] [address] [place] [address] Jul, [facility] [address] [id number] [address] [place] [address] Jul, [facility] [address] [id number] [address] [place] [address] Jul, [facility] [address] [id number] [address] [place] [address] Jun, [facility] [address] [id number] [address] [place] [address] Jun, [facility] [employer] [facility] [address] [place] [id number] Jun, Low back pain M54.5 ; Other chronic pain G89.29 and Coronary artery disease I25.10 [facility] [address] [id number] [address] [place] [address] 08 Jun, 2016 [facility] [address] [id number] [address] [place] [address] May, [facility] [address] [id number] [address] [place] [address] 15 May, 2016 [facility] [address] [id number] [address] [place] [address] May, Other chronic pain G89.29 [facility] [address] [id number] [address] [place] [address] May, [facility] [address] [id number] [address] [place] [address] Apr, [facility] [address] [id number] [address] [place] [address] 17 Apr, 2016 Acute cystitis without hemat uria N30.00 [facility] [address] [id number] [address] [place] [address] 16 Apr, 2016 Acute cystitis without hemat uria N30.00 ; Coronary artery disease I25.10 ; Low back pain M54.5 and Other chronic pain G89.29 [facility] [address] [id number] [address] [place] [address] Apr, Other chronic pain G89.29 [facility] [address] [id number] [address] [place] [address] March, Other chronic pain G89.29 [facility] [address] [id number] [address] [place] [address] 18 Feb, 2016 [facility] [address] [id number] [address] [place] [address] 15 Feb, 2016 Arthritis M19.90 [facility] [address] [id number] [address] [place] [address] Feb, [facility] [address] [id number] [address] [place] [address] Jan, [facility] [address] [id number] [address] [place] [address] Jan, [facility] [address] [id number] [address] [place] [address] Jan, Other chronic pain G89.29 [facility] [address] [id number] [address] [place] [address] Jan, Hypertension I10 ; Coronary artery disease I25.10 and Insomnia G47.00 [facility] [address] [id number] [address] [place] [address] Jan, [facility] [address] [id number] [address] [place] [address] Dec, Right hip pain M25.551 [facility] [address] [id number] [address] [place] [address] Dec, [facility] [address] [id number] [address] [place] [address] Dec, [facility] [address] [id number] [address] [place] [address] Dec, [facility] [address] [id number] [address] [place] [address] Dec, Other chronic pain G89.29 [facility] [address] [id number] [address] [place] [address] Dec, [facility] [address] [id number] [address] [place] [address] Nov, [facility] [address] [id number] [address] [place] [address] Nov, Other chronic pain G89.29 [facility] [address] [id number] [address] [place] [address] Nov, Right hip pain M25.551 and C oronary artery disease I25.10 [facility] [address] [id number] [address] [place] [address] Nov, Other chronic pain G89.29 [facility] [address] [id number] [address] [place] [address] Oct, [facility] [address] [id number] [address] [place] [address] Oct, [facility] [address] [id number] [address] [place] [address] Sep, [facility] [address] [id number] [address] [place] [address] Sep, [facility] [address] [id number] [address] [place] [address] Aug, [facility] [address] [id number] [address] [place] [address] Aug, Hypertension I10 ; Coronary artery disease I25.10 and Arthritis M19.90 [facility] [address] [id number] [address] [place] [address] Jun, [facility] [address] [id number] [address] [place] [address] Jun, Essential hypertension, jayson gn 401.1 ; Other chronic pain 338.29 and Chronic airway obstruction, not elsewhere classified 496 [facility] [address] [id number] [address] [place] [address] Jun, [facility] [address] [id number] [address] [place] [address] Jun, [facility] [address] [id number] [address] [place] [address] Jun, [facility] [address] [id number] [address] [place] [address] May, [facility] [address] [id number] [address] [place] [address] [place] [address] May, [facility] [address] [id number] [address] [place] [address], [place] [address] Apr, [facility] [address] [id number] [address] [place] [address], [place] [address] Apr, [facility] [address] [id number] [address] [place] [address], [place] [address] Apr, [facility] [address] [id number] [address] [place] [address], [place] [address] March, [facility] [address] [id number] [address] [place] [address], [place] [address] March, [facility] [address] [id number] [address] [place] [address], [place] [address] March, [facility] [address] [id number] [address] [place] [address], [place] [address] March, [facility] [address] [id number] [address] [place] [address], [place] [address] March, Sialadenitis 527.2 [facility] [address] [id number] [address] [place] [address], [place] [address] Feb, [facility] [address] [id number] [address] [place] [address], [place] [address] Feb, [facility] [address] [id number] [address] [place] [address], [place] [address] Feb, [facility] [address] [id number] [address] [place] [address], [place] [address] Feb, [facility] [address] [id number] [address] [place] [address], [place] [address] Feb, [facility] [address] [id number] [address] [place] [address], [place] [address] Jan, [facility] [address] [id number] [address] [place] [address], [place] [address] Jan, [facility] [address] [id number] [address] [place] [address], [place] [address] Jan, [facility] [address] [id number] [address] [place] [address], [place] [address] Jan, [facility] [address] [id number] [address] [place] [address], [place] [address] Jan, [facility] [address] [id number] [address] [place] [address], [place] [address] Jan, [facility] [address] [id number] [address] [place] [address], [place] [address] Dec, [facility] [address] [id number] [address] [place] [address], [place] [address] Dec, 2014 [facility] [address] [id number] [address] [place] [address], [place] [address] Dec, [facility] [address] [id number] [address] [place] [address], [place] [address] Dec, 2014 [facility] [address] [id number] [address] [place] [address], [place] [address] Dec, [facility] [address] [id number] [address] [place] [address], [place] [address] Dec, [facility] [address] [id number] [address] [place] [address], [place] [address] Nov, [facility] [address] [id number] [address] [place] [address], [place] [address] Nov, [facility] [address] [id number] [address] [place] [address], [place] [address] Nov, [facility] [address] [id number] [address] [place] [address], [place] [address] Nov, [facility] [address] [id number] [address] [place] [address], [place] [address] Nov, [facility] [address] [id number] [address] [place] [address], [place] [address] Nov, [facility] [place] [address] [id number] [address] [place] [address], [place] [address] Nov, [facility] [address] [id number] [address] [place] [address], [place] [address] Nov, [facility] [address] [id number] [address] [place] [address], [place] [address] Nov, [facility] [address] [id number] [address] [place] [address], [place] [address] Nov, [facility] [address] [id number] [address] [place] [address], [place] [address] Nov, [facility] [address] [id number] [address] [place] [address], [place] [address] Nov, [facility] [address] [id number] [address] [place] [address], [place] [address] Nov, [facility] [address] [id number] [address] [place] [address], [place] [address] Nov, [facility] [address] [id number] [address] [place] [address], [place] [address] Oct, [facility] [address] [id number] [address] [place] [address], [place] [address] Oct, [facility] [address] [id number] [address] [place] [address], [place] [address] Oct, [facility] [address] [id number] [address] [place] [address], [place] [address] 18 Oct, 2014 [facility] [address] [id number] [address] [place] [address], [place] [address] 18 Oct, 2014 [facility] [address] [id number] [address] [place] [address], [place] [address] 17 Oct, 2014 [facility] [address] [id number] [address] [place] [address], [place] [address] Oct, [facility] [address] [id number] [address] [place] [address], [place] [address] Oct, [facility] [address] [id number] [address] [place] [address], [place] [address] Oct, [facility] [address] [id number] [address] [place] [address], [place] [address] Sep, [facility] [address] [id number] [address] [place] [address], [place] [address] Sep, [facility] [address] [id number] [address] [place] [address], [place] [address] Sep, [facility] [address] [id number] [address] [place] [address], [place] [address] Sep, [facility] [address] [id number] [address] [place] [address], [place] [address] Sep, [facility] [address] [id number] [address] [place] [address], [place] [address] Sep, [facility] [address] [id number] [address] [place] [address], [place] [address] Sep, [facility] [address] [id number] [address] [place] [address], [place] [address] Sep, [facility] [address] [id number] [address] [place] [address], [place] [address] Sep, [facility] [address] [id number] [address] [place] [address], [place] [address] Sep, [facility] [address] [id number] [address] [place] [address], [place] [address] Sep, [facility] [address] [id number] [address] [place] [address], [place] [address] Sep, [facility] [address] [id number] [address] [place] [address], [place] [address] Aug, [facility] [address] [id number] [address] [place] [address] 30 Aug, 2014 [facility] [address] [id number] [address] [place] [address], [place] [address] 29 Aug, 2014 [facility] [address] [id number] [address] [place] [address], [place] [address] 29 Aug, 2014 [facility] [address] [id number] [address] [place] [address], [place] [address] 28 Aug, 2014 [facility] [address] [id number] [address] [place] [address], [place] [address] 28 Aug, 2014 [facility] [address] [id number] [address] [place] [address], [place] [address] 17 Aug, 2014 [facility] [address] [id number] [address] [place] [address], [place] [address] 17 Aug, 2014 [facility] [address] [id number] [address] [place] [address], [place] [address] 30 Jul, 2013 [facility] [address] [id number] [address] [place] [address], [place] [address] 30 Sep, 2013 [facility] [address] [id number] [address] [place] [address], [place] [address] 30 Sep, 2013 [facility] [address] [id number] [address] [place] [address], [place] [address] 30 Sep, 2013 [facility] [address] [id number] [address] [place] [address], [place] [address] 25 Sep, 2013 [facility] [address] [id number] [address] [place] [address] 25 Sep, 2013 [facility] [address] [id number] [address] [place] [address], [place] [address] 15 Sep, 2013 [facility] [address] [id number] [address] [place] [address], [place] [address] 15 Sep, 2013 [facility] [address] [id number] [address] [place] [address], [place] [address] 11 Jul, 2013 [facility] [address] [id number] [facility] [place] [address] Jul, [facility] [address] [id number] [facility] [place] [address] Jun, [facility] [address] [id number] [facility] [place] [address] Jun, [facility] [address] [id number] [address] [place] [address], [place] [address] Jun, [facility] [address] [id number] [address] [place] [address], [place] [address] Jun, [facility] [address] [id number] [address] [place] [address], [place] [address] Jun, [facility] [address] [id number] [address] [place] [address], [place] [address] Jun, [facility] [address] [id number] [address] [place] [address], [place] [address] Jun, [facility] [address] [id number] [address] [place] [address], [place] [address] Jun, [facility] [address] [id number] [address] [place] [address], [place] [address] Jun, [facility] [address] [id number] [address] [place] [address], [place] [address] Jun, [facility] [address] [id number] [address] [place] [address], [place] [address] Jun, [facility] [address] [id number] [address] [place] [address], [place] [address] Jun, [facility] [address] [id number] [address] [place] [address], [place] [address] Jun, [facility] [address] [id number] [address] [place] [address], [place] [address] Jun, [facility] [address] [id number] [address] [place] [address], [place] [address] Jun, [facility] [address] [id number] [facility] [place] [address] Jun, [facility] [address] [id number] [facility] [place] [address] Jun, [facility] [address] [id number] [facility] [place] [address] Jun, [facility] [address] [id number] [address] [place] [address], [place] [address] Jun, [facility] [address] [id number] [address] [place] [address], [place] [address] Jun, [facility] [address] [id number] [address] [place] [address], [place] [address] Jun, [facility] [address] [id number] [address] [place] [address], [place] [address] Jun, [facility] [address] [id number] [address] [place] [address], [place] [address] May, [facility] [address] [id number] [address] [place] [address], [place] [address] May, [facility] [address] [id number] [address] [place] [address], [place] [address] May, [facility] [address] [id number] [address] [place] [address], [place] [address] May, [facility] [address] [id number] [address] [place] [address], [place] [address] May, [facility] [address] [id number] [address] [place] [address], [place] [address] May, [facility] [address] [id number] [address] [place] [address], [place] [address] May, [facility] [address] [id number] [address] [place] [address], [place] [address] May, [facility] [address] [id number] [address] [place] [address], [place] [address] May, [facility] [address] [id number] [facility] [place] [address] May, [facility] [address] [id number] [address] [place] [address], [place] [address] May, [facility] [address] [id number] [address] [place] [address], [place] [address] May, [facility] [address] [id number] [address] [place] [address], [place] [address] May, [facility] [address] [id number] [address] [place] [address], [place] [address] Apr, [facility] [address] [id number] [address] [place] [address], [place] [address] Apr, [facility] [address] [id number] [address] [place] [address], [place] [address] Apr, [facility] [address] [id number] [address] [place] [address], [place] [address] Apr, [facility] [address] [id number] [address] [place] [address], [place] [address] Apr, [facility] [address] [id number] [address] [place] [address], [place] [address] Apr, [facility] [address] [id number] [address] [place] [address], [place] [address] Apr, [facility] [address] [id number] [address] [place] [address], [place] [address] Apr, [facility] [address] [id number] [address] [place] [address], [place] [address] Apr, [facility] [place] [facility] [address] [id number] [address] [place] [address], [place] [address] March, [facility] [place] [facility] [address] [id number] [address] [place] [address], [place] [address] March, [facility] [place] [facility] [address] [id number] [facility] [place] [address] March, [facility] [address] [id number] [address] [place] [address], [place] [address] March, [facility] [address] [id number] [address] [place] [address], [place] [address] March, [facility] [address] [id number] [address] [place] [address], [place] [address] March, [facility] [address] [id number] [address] [place] [address], [place] [address] March, [facility] [address] [id number] [address] [place] [address], [place] [address] March, [facility] [address] [id number] [address] [place] [address], [place] [address] March, [facility] [address] [id number] [address] [place] [address], [place] [address] March, [facility] [address] [id number] [address] [place] [address], [place] [address] March, [facility] [address] [id number] [address] [place] [address], [place] [address] March, [facility] [address] [id number] [address] [place] [address], [place] [address] March, [facility] [address] [id number] [address] [place] [address], [place] [address] March, [facility] [address] [id number] [address] [place] [address], [place] [address] March, [facility] [address] [id number] [address] [place] [address], [place] [address] March, [facility] [address] [id number] [address] [place] [address], [place] [address] March, [facility] [address] [id number] [address] [place] [address], [place] [address] March, [facility] [address] [id number] [facility] [place] [address] March, [facility] [address] [id number] [address] [place] [address], [place] [address] March, [facility] [address] [id number] [address] [place] [address], [place] [address] Feb, [facility] [address] [id number] [address] [place] [address], [place] [address] Feb, [facility] [address] [id number] [address] [place] [address], [place] [address] Feb, [facility] [address] [id number] [address] [place] [address], [place] [address] Feb, [facility] [address] [id number] [address] [place] [address], [place] [address] Feb, [facility] [address] [id number] [address] [place] [address], [place] [address] Feb, [facility] [address] [id number] [address] [place] [address], [place] [address] Feb, [facility] [address] [id number] [address] [place] [address], [place] [address] Feb, [facility] [address] [id number] [address] [place] [address], [place] [address] Jan, [facility] [place] [facility] [address] [id number] [address] [place] [address], [place] [address] Jan, [facility] [place] [address] [id number] [address] [place] [address], [place] [address] Jan, [facility] [place] [facility] [address] [id number] [address] [place] [address], [place] [address] 24 Jan, 2014 [facility] [place] [facility] [address] [id number] [address] [place] [address], [place] [address] 13 Jan, 2014 [facility] [address] [id number] [address] [place] [address] 13 Jan, 2014 [facility] [address] [id number] [address] [place] [address], [place] [address] Jan, [facility] [place] [facility] [address] [id number] [address] [place] [address], [place] [address] Jan, [facility] [address] [id number] [address] [place] [address], [place] [address] Jan, [facility] [place] [address] [id number] [address] [place] [address], [place] [address] Jan, [facility] [address] [id number] [address] [place] [address], [place] [address] Dec, [facility] [facility] [address] [id number] [address] [place] [address], [place] [address] Dec, [facility] [address] [id number] [address] [place] [address], [place] [address] Dec, [facility] [address] [id number] [address] [place] [address], [place] [address] Dec, [facility] [address] [id number] [address] [place] [address], [place] [address] Dec, [facility] [address] [id number] [address] [place] [address], [place] [address] Dec, [facility] [address] [id number] [address] [place] [address], [place] [address] Dec, [facility] [address] [id number] [address] [place] [address], [place] [address] Dec, [facility] [address] [id number] [address] [place] [address], [place] [address] Nov, [facility] [address] [id number] [address] [place] [address], [place] [address] Nov, [facility] [address] [id number] [address] [place] [address], [place] [address] Nov, [facility] [address] [id number] [address] [place] [address], [place] [address] Nov, [facility] [address] [id number] [address] [place] [address], [place] [address] Nov, [facility] [address] [id number] [address] [place] [address], [place] [address] Nov, [facility] [address] [id number] [address] [place] [address], [place] [address] Nov, [facility] [address] [id number] [address] [place] [address], [place] [address] Nov, [facility] [address] [id number] [address] [place] [address], [place] [address] Nov, [facility] [address] [id number] [address] [place] [address], [place] [address] Nov, [facility] [address] [id number] [address] [place] [address], [place] [address] Nov, [facility] [address] [id number] [address] [place] [address], [place] [address] Nov, [facility] [address] [id number] [address] [place] [address], [place] [address] Nov, [facility] [place] [address] [id number] [address] [place] [address], [place] [address] Oct, [facility] [address] [id number] [address] [place] [address], [place] [address] Oct, [facility] [address] [id number] [address] [place] [address], [place] [address] Oct, [facility] [address] [id number] [address] [place] [address], [place] [address] Oct, [facility] [address] [id number] [address] [place] [address], [place] [address] Oct, [facility] [address] [id number] [address] [place] [address], [place] [address] 23 Oct, 2013 [facility] [place] [address] [id number] [address] [place] [address], [place] [address] 18 Oct, 2013 [facility] [address] [id number] [address] [place] [address], [place] [address] 18 Oct, 2013 [facility] [address] [id number] [address] [place] [address], [place] [address] 17 Oct, 2013 [facility] [address] [id number] [address] [place] [address], [place] [address] 17 Oct, 2013 [facility] [address] [id number] [address] [place] [address], [place] [address] Oct, [facility] [address] [id number] [address] [place] [address], [place] [address] Oct, [facility] [address] [id number] [address] [place] [address], [place] [address] Oct, [facility] [place] [address] [id number] [address] [place] [address], [place] [address] 02 Oct, 2013 [facility] [place] [address] [id number] [address] [place] [address], [place] [address] 14 Sep, 2013 [facility] [address] [id number] [address] [place] [address], [place] [address] 14 Sep, 2013 [facility] [place] [address] [id number] [address] [place] [address], [place] [address] 05 Sep, 2013 [facility] [address] [id number] [address] [place] [address], [place] [address] 05 Sep, 2013 [facility] [address] [id number] [address] [place] [address], [place] [address] 04 Sep, 2013 [facility] [address] [id number] [address] [place] [address], [place] [address] 04 Sep, 2013 [facility] [address] [id number] [address] [place] [address], [place] [address] Sep, [facility] [address] [id number] [address] [place] [address], [place] [address] Sep, [facility] [address] [id number] [address] [place] [address], [place] [address] Sep, [facility] [address] [id number] [address] [place] [address], [place] [address] Sep, [facility] [address] [id number] [address] [place] [address], [place] [address] Aug, [facility] [address] [id number] [address] [place] [address], [place] [address] Aug, [facility] [address] [id number] [address] [place] [address], [place] [address] Aug, [facility] [address] [id number] [address] [place] [address], [place] [address] Aug, [facility] [address] [id number] [address] [place] [address], [place] [address] Aug, [facility] [address] [id number] [address] [place] [address], [place] [address] Aug, [facility] [address] [id number] [address] [place] [address] Aug, [facility] [address] [id number] [address] [place] [address] Aug, [facility] [address] [id number] [address] [place] [address] Aug, [facility] [address] [id number] [address] [place] [address], [place] [address] Aug, [facility] [address] [id number] [address] [place] [address] Aug, [facility] [address] [id number] [address] [place] [address] Aug, [facility] [address] [id number] [address] [place] [address] 18 Aug, 2013 [facility] [address] [id number] [address] [place] [address], [place] [address] 18 Aug, 2013 [facility] [address] [id number] [address] [place] [address], [place] [address] 17 Aug, 2013 [facility] [address] [id number] [address] [place] [address], [place] [address] 14 Aug, 2013 [facility] [address] [id number] [address] [place] [address], [place] [address] 14 Aug, 2013 [facility] [address] [id number] [address] [place] [address], [place] [address] 01 Aug, 2013 [facility] [address] [id number] [address] [place] [address], [place] [address] 20 Jul, 2013 [facility] [address] [id number] [address] [place] [address], [place] [address] 19 Jul, 2013 [facility] [address] [id number] [address] [place] [address], [place] [address] 18 Jul, 2013 [facility] [address] [id number] [address] [place] [address], [place] [address] 11 Jul, 2013 [facility] [address] [id number] [address] [place] [address], [place] [address] 11 Jul, 2013 [facility] [address] [id number] [address] [place] [address], [place] [address] 28 Jun, 2013 [facility] [address] [id number] [address] [place] [address], [place] [address] 23 Jun, 2013 [facility] [address] [id number] [address] [place] [address], [place] [address] 23 Jun, 2013 [facility] [address] [id number] [address] [place] [address], [place] [address] 15 Jun, 2013 [facility] [address] [id number] [address] [place] [address], [place] [address] 14 Jun, 2013 [facility] [address] [id number] [facility] [place] [address] Jun, [facility] [place] [address] [id number] [address] [place] [address], [place] [address] Jun, [facility] [address] [id number] [address] [place] [address], [place] [address] Jun, [facility] [place] [address] [id number] [address] [place] [address], [place] [address] Jun, [facility] [address] [id number] [address] [place] [address], [place] [address] Jun, [facility] [address] [id number] [address] [place] [address], [place] [address] May, [facility] [address] [id number] [address] [place] [address], [place] [address] May, [facility] [place] [address] [id number] [address] [place] [address], [place] [address] May, [facility] [address] [id number] [address] [place] [address], [place] [address] May, [facility] [place] [address] [id number] [address] [place] [address], [place] [address] May, [facility] [address] [id number] [address] [place] [address], [place] [address] May, [facility] [place] [address] [id number] [address] [place] [address], [place] [address] May, [facility] [address] [id number] [address] [place] [address], [place] [address] May, [facility] [address] [id number] [address] [place] [address], [place] [address] May, [facility] [address] [id number] [address] [place] [address], [place] [address] Apr, [facility] [address] [id number] [address] [place] [address], [place] [address] Apr, [facility] [place] [address] [id number] [address] [place] [address], [place] [address] Apr, [facility] [address] [id number] [address] [place] [address], [place] [address] Apr, [facility] [address] [id number] [address] [place] [address], [place] [address] Apr, [facility] [address] [id number] [address] [place] [address], [place] [address] Apr, [facility] [address] [id number] [address] [place] [address], [place] [address] Apr, [facility] [address] [id number] [address] [place] [address], [place] [address] March, [facility] [address] [id number] [address] [place] [address], [place] [address] Feb, [facility] [address] [id number] [address] [place] [address], [place] [address] Feb, [facility] [address] [id number] [address] [place] [address], [place] [address] Feb, [facility] [address] [id number] [address] [place] [address], [place] [address] Jan, [facility] [address] [id number] [address] [place] [address], [place] [address] Jan, [facility] [address] [id number] [address] [place] [address], [place] [address] Jan, [facility] [address] [id number] [address] [place] [address], [place] [address] 14 Jan, 2013 [facility] [address] [id number] [address] [place] [address], [place] [address] 12 Jan, 2013 [facility] [address] [id number] [address] [place] [address], [place] [address] 08 Jan, 2013 [facility] [address] [id number] [address] [place] [address], [place] [address] 07 Jan, 2013 [facility] [place] [address] [id number] [address] [place] [address], [place] [address] 04 Jan, 2013 [facility] [address] [id number] [address] [place] [address], [place] [address] 28 Dec, 2012 [facility] [address] [id number] [address] [place] [address], [place] [address] 25 Dec, 2012 [facility] [address] [id number] [address] [place] [address], [place] [address] 13 Dec, 2012 [facility] [address] [id number] [address] [place] [address], [place] [address] 11 Dec, 2012 [facility] [address] [id number] [address] [place] [address], [place] [address] 07 Dec, 2012 [facility] [address] [id number] [address] [place] [address], [place] [address] 06 Dec, 2012 [facility] [place] [address] [id number] [address] [place] [address], [place] [address] 05 Dec, 2012 [facility] [address] [id number] [address] [place] [address], [place] [address] Nov, [facility] [address] [id number] [address] [place] [address], [place] [address] 24 Nov, 2012 [facility] [place] [address] [id number] [address] [place] [address], [place] [address] 18 Nov, 2012 [facility] [address] [id number] [address] [place] [address], [place] [address] 15 Nov, 2012 [facility] [address] [id number] [address] [place] [address], [place] [address] 10 Nov, 2012 [facility] [address] [id number] [address] [place] [address], [place] [address] 10 Nov, 2012 [facility] [address] [id number] [address] [place] [address], [place] [address] Nov, [facility] [address] [id number] [address] [place] [address], [place] [address] Oct, [facility] [address] [id number] [address] [place] [address], [place] [address] Oct, [facility] [address] [id number] [address] [place] [address], [place] [address] Oct, [facility] [address] [id number] [address] [place] [address], [place] [address] Oct, [facility] [address] [id number] [address] [place] [address], [place] [address] Oct, [facility] [address] [id number] [address] [place] [address], [place] [address] Oct, [facility] [address] [id number] [address] [place] [address], [place] [address] Oct, [facility] [address] [id number] [address] [place] [address], [place] [address] Oct, [facility] [address] [id number] [address] [place] [address], [place] [address] Oct, [facility] [address] [id number] [address] [place] [address], [place] [address] Oct, [facility] [address] [id number] [address] [place] [address], [place] [address] Oct, [facility] [address] [id number] [address] [place] [address], [place] [address] Oct, [facility] [address] [id number] [address] [place] [address], [place] [address] Sep, [facility] [address] [id number] [address] [place] [address], [place] [address] Sep, [facility] [address] [id number] [address] [place] [address], [place] [address] Sep, [facility] [address] [id number] [address] [place] [address] Sep, [facility] [address] [id number] [address] [place] [address], [place] [address] Sep, [facility] [address] [id number] [address] [place] [address] Sep, [facility] [address] [id number] [address] [place] [address] Sep, [facility] [address] [id number] [address] [place] [address] Sep, [facility] [address] [id number] [address] [place] [address], [place] [address] Sep, [facility] [address] [id number] [address] [place] [address] Sep, [facility] [address] [id number] [address] [place] [address] Sep, [facility] [address] [id number] [address] [place] [address] Aug, [facility] [address] [id number] [address] [place] [address] Aug, [facility] [address] [id number] [address] [place] [address] Aug, [facility] [address] [id number] [address] [place] [address] Aug, [facility] [address] [id number] [address] [place] [address] Aug, [facility] [address] [id number] [address] [place] [address] Aug, [facility] [address] [id number] [address] [place] [address] Aug, [facility] [address] [id number] [address] [place] [address] Aug, [facility] [address] [id number] [facility] [place] [address] Aug, [facility] [address] [id number] [address] [place] [address], [place] [address] Aug, [facility] [address] [id number] [address] [place] [address], [place] [address] Jul, [facility] [address] [id number] [address] [place] [address], [place] [address] Jul, [facility] [address] [id number] [address] [place] [address], [place] [address] Jul, [facility] [address] [id number] [address] [place] [address], [place] [address] Jul, [facility] [address] [id number] [address] [place] [address], [place] [address] Jun, [facility] [address] [id number] [address] [place] [address], [place] [address] Jun, [facility] [address] [id number] [address] [place] [address], [place] [address] Jun, [facility] [address] [id number] [address] [place] [address], [place] [address] Jun, [facility] [address] [id number] [address] [place] [address], [place] [address] Jun, [facility] [address] [id number] [address] [place] [address], [place] [address] Jun, [facility] [address] [id number] [address] [place] [address], [place] [address] Jun, [facility] [address] [id number] [address] [place] [address], [place] [address] May, [facility] [address] [id number] [address] [place] [address], [place] [address] May, [facility] [address] [id number] [address] [place] [address], [place] [address] May, [facility] [address] [id number] [address] [place] [address], [place] [address] May, [facility] [address] [id number] [address] [place] [address], [place] [address] May, [facility] [address] [id number] [address] [place] [address], [place] [address] Apr, [facility] [address] [id number] [address] [place] [address], [place] [address] Apr, [facility] [address] [id number] [address] [place] [address], [place] [address] Apr, [facility] [address] [id number] [address] [place] [address], [place] [address] Apr, [facility] [address] [id number] [address] [place] [address], [place] [address] Apr, [facility] [address] [id number] [address] [place] [address], [place] [address] March, [facility] [address] [id number] [address] [place] [address], [place] [address] March, [facility] [address] [id number] [address] [place] [address], [place] [address] March, [facility] [address] [id number] [address] [place] [address], [place] [address] March, [facility] [address] [id number] [address] [place] [address], [place] [address] March, [facility] [address] [id number] [address] [place] [address], [place] [address] March, [facility] [address] [id number] [address] [place] [address], [place] [address] March, [facility] [address] [id number] [address] [place] [address], [place] [address] March, [facility] [address] [id number] [address] [place] [address], [place] [address] March, [facility] [address] [id number] [address] [place] [address], [place] [address] March, [facility] [address] [id number] [address] [place] [address], [place] [address] 30 Feb, 2012 [facility] [address] [id number] [address] [place] [address], [place] [address] Feb, [facility] [address] [id number] [address] [place] [address], [place] [address] Feb, [facility] [address] [id number] [address] [place] [address], [place] [address] Feb, [facility] [address] [id number] [address] [place] [address], [place] [address] Feb, [facility] [address] [id number] [address] [place] [address], [place] [address] Feb, [facility] [place] [address] [id number] [address] [place] [address], [place] [address] Feb, [facility] [address] [id number] [address] [place] [address], [place] [address] Feb, [facility] [place] [address] [id number] [address] [place] [address], [place] [address] Feb, [facility] [address] [id number] [address] [place] [address], [place] [address] Jan, [facility] [address] [id number] [address] [place] [address], [place] [address] Jan, [facility] [address] [id number] [address] [place] [address], [place] [address] 05 Jan, 2012 [facility] [address] [id number] [address] [place] [address], [place] [address] Jan, [facility] [address] [id number] [address] [place] [address], [place] [address] Dec, [facility] [address] [id number] [address] [place] [address] Dec, [facility] [address] [id number] [address] [place] [address] Nov, [facility] [address] [id number] [address] [place] [address] Nov, [facility] [address] [id number] [address] [place] [address] Nov, [facility] [address] [id number] [address] [place] [address] Nov, [facility] [address] [id number] [address] [place] [address] Nov, [facility] [address] [id number] [address] [place] [address] Oct, [facility] [address] [id number] [address] [place] [address] Oct, [facility] [address] [id number] [address] [place] [address] Oct, [facility] [address] [id number] [address] [place] [address] Oct, [facility] [address] [id number] [address] [place] [id number] Oct, [facility] [address] [id number] [address] [place] [id number] Oct, [facility] [address] [id number] [address] [place] [id number] Oct, [facility] [address] [id number] [address] [place] [id number] Oct, [facility] [address] [id number] [address] [place] [id number] Sep, IMMUNIZATIONS No Known Immunizations SOCIAL HISTORY [...] fever, discharged 11/27/2017 11/26/2017 Hospitalization History ED [place]- Went Unrepsonsive, Hit head 2017 Hospitalization History ED [place]- Back Pain 05/05/ 8
--- OUTSIDE RECORDS SUMMARY | 2020-06-18 14:33 | XMS REPORT ---
Author Author Sanjuanita Sanchez [facility] Address [address] [place] [address] Care Team Providers Care Provider Network Manager Name Role Phone MARIA DE JESUS Sanchez Unavailable PROBLEMS Type Condition ICD9-CM Code AQN08-PS Code Onset Dates Condition S tatus SNOMED Code Problem Hypertension I10 Active 2309507 3 Problem Hyperlipidemia E78.5 Active 03495 004 Problem Coronary artery disease I25.10 Active 66923829 Problem Low back pain M54.5 Active 974572 009 Problem Other chronic pain G89.29 Active 8 5538811 Problem Ventral hernia without obstruction or gangrene K43 .9 Active 037727884 Problem Type 2 diabetes mellitus wit hout complication, without long-term current use of insulin E11.9 Active 919777687 Problem Anxiety F41.9 Active 99087677 Problem Peripheral vascular disease I73.9 Ac tive 308223846 Problem Insomnia G47.00 Active 559094611 Problem Microcytic anemia D50.9 Active 23 8703943 Problem Pharyngeal dysphagia R13.13 Active 43352191595509 Problem Other iron deficiency anemia D50.8 A ctive 65992542 Problem Reactive depression F32.9 Active 79349115 Problem Paroxysmal atrial fibrillation I48.0 Active 224111104 Problem 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 Active 07668765 Problem Encounter for suprapubic catheter care Z43.5 Active 906332510 Problem Neurogenic bladder N31.9 Active 3 [id number] ALLERGIES No Information ENCOUNTERS Encounter Location Date Diagnosis [facility] [address] [facility] [id number] [address] [place] [address] May, [facility] [address] [facility] [id number] [address] [place] [address] May, Strain of right shoulder, scherer bsequent encounter S46.911D and Anxiety F41.9 [facility] [address] [id number] [address] [place] [address] 17 Apr, 2020 Anxiety F41.9 and Strain of right shoulder, subsequent encounter S46.911D [facility] [address] [id number] [address] [place] [address] 04 Apr, 2020 [facility] [address] [id number] [address] [place] [address] March, [facility] [address] [id number] [address] [place] [address] March, Anxiety F41.9 and Strain of right shoulder, subsequent encounter S46.911D [facility] [address] [id number] [address] [place] [address] Feb, Anxiety F41.9 and Strain of right shoulder, subsequent encounter S46.911D [facility] [address] [id number] [address] [place] [address] Jan, Anxiety F41.9 and Strain of right shoulder, subsequent encounter S46.911D [facility] [address] [id number] [address] [place] [address] Jan, [facility] [address] [place] [id number] Jan, Neurogenic bladder N31.9 [facility] [address] [id number] [address] [place] [address] Dec, [facility] [address] [id number] [address] [place] [address] Dec, [facility] [address] [id number] [address] [place] [address] 24 Dec, 2019 Anxiety F41.9 and Strain of right shoulder, subsequent encounter S46.911D [facility] [address] [id number] [address] [place] [phone] 10 Dec, 2019 Other iron deficiency anemia D50.8 [facility] [address] [id number] [address] [place] [address] Dec, Via [facility] [address] [place] [id number] Dec, Encounter for suprapubic catheter care Z 43.5 and Microcytic anemia D50.9 [facility] [address] [id number] [address] [place] [address] Dec, [facility] [address] [id number] [address] [place] [address] Nov, Anxiety F41.9 and Strain of right shoulder, subsequent encounter S46.911D [facility] [address] [id number] [address] [place] [address] Nov, Hypertension I10 Via [facility] [address] [place] [id number] Nov, Pneumonia of both lungs due to infectiou s organism, unspecified part of lung J18.9 and Suprapubic catheter Z93.59 [facility] [address] [id number] [address] [place] [address] Nov, Hypertension I10 and Reactiv e depression F32.9 [facility] [address] [id number] [address] [place] [address] Oct, Strain of right shoulder, scherer bsequent encounter S46.911D and Anxiety F41.9 [facility] [address] [id number] [address] [place] [address] Oct, Via [facility] [address] [place] [id number] Oct, Suprapubic catheter Z93.59 and Candidias is, intertriginous B37.2 [facility] [address] [id number] [address] [place] [address] Oct, Suprapubic catheter Z93.59 [facility] [address] [id number] [address] [place] [address] Oct, Anxiety F41.9 and Strain of right shoulder, subsequent encounter S46.911D [facility] [address] [id number] [address] [place] [address] Sep, [facility] [address] [id number] [address] [place] [address] Sep, [facility] [address] [id number] [address] [place] [address] Sep, Via [facility] [address] [place] [id number] Sep, Suprapubic catheter Z93.59 [facility] [address] [id number] [address] [place] [address] Sep, Anxiety F41.9 and Strain of right shoulder, subsequent encounter S46.911D [facility] [address] [id number] [address] [place] [address] Aug, [facility] [address] [id number] [address] [place] [address] Aug, [facility] [address] [id number] [address] [place] [address] Aug, Anxiety F41.9 and Strain of right shoulder, subsequent encounter S46.911D Via [facility] [address] [place] [id number] Aug, Suprapubic catheter Z93.59 [facility] [address] [id number] [address] [place] [address] Jul, Strain of right shoulder, scherer bsequent encounter S46.911D and Anxiety F41.9 [facility] [address] [id number] [address] [place] [address] Jul, Anxiety F41.9 [facility] [address] [id number] [address] [place] [address] Jun, [facility] [address] [id number] [address] [place] [address] Jun, [facility] [address] [id number] [address] [place] [address] Jun, [facility] [address] [id number] [address] [place] [address] Jun, Strain of right shoulder, scherer bsequent encounter S46.911D [facility] [address] [id number] [address] [place] [address] Jun, Strain of right shoulder, scherer bsequent encounter S46.911D [facility] [address] [id number] [address] [place] [address] Jun, Anxiety F41.9 [facility] [address] [place] [id number] Jun, Neurogenic bladder N31.9 and Anxiety F41 .9 Via [facility] [address] [place] [id number] May, Anxiety F41.9 [facility] [address] [id number] [address] [place] [address] May, Dysuria R30.0 [facility] [address] [id number] [address] [place] [address] May, Strain of right shoulder, scherer bsequent encounter S46.911D and Anxiety F41.9 [facility] [address] [id number] [address] [place] [address] Apr, Via [facility] [employer] [address] [place] [id number] Apr, Strain of right shoulder, subsequent enc ounter S46.911D [facility] [address] [id number] [address] [place] [address] Apr, Strain of right shoulder, scherer bsequent encounter S46.911D and Anxiety F41.9 [facility] [employer] [address] [place] [id number] Apr, Type 2 diabetes mellitus without complic ation, without long-term current use of insulin E11.9 and Neurogenic bladder N31.9 [facility] [address] [place] [id number] Apr, Strain of right shoulder, subsequent enc ounter S46.911D ; History of GI bleed Z87.19 ; Neurogenic bladder N31.9 and Reactive depression F32.9 [facility] [address] [id number] [address] [place] [address] 10 Apr, 2019 Acute pain of left shoulder M25.512 [facility] [address] [id number] [address] [place] [address] Apr, [facility] [address] [id number] [address] [place] [address] Apr, Anxiety F41.9 and 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 [facility] [address] [place] [id number] March, Gastrointestinal hemorrhage associated w ith acute gastritis K29.01 [facility] [address] [id number] [address] [place] [address] March, [facility] [address] [place] [id number] March, Bronchitis J40 [facility] [address] [id number] [address] [place] [address] March, Cough R05 [facility] [address] [id number] [address] [place] [address] March, Other chronic pain G89.29 [facility] [address] [id number] [address] [place] [address] March, Anxiety F41.9 [facility] [address] [id number] [address] [place] [address] March, [facility] [address] [id number] [address] [place] [address] Feb, Other chronic pain G89.29 [facility] [address] [id number] [address] [place] [address] Feb, Anxiety F41.9 [facility] [address] [id number] [address] [place] [address] Feb, Other chronic pain G89.29 Via [facility] [address] [place] [id number] Feb, Neurogenic bladder N31.9 and Suprapubic catheter Z93.59 [facility] [address] [id number] [address] [place] [address] Jan, Anxiety F41.9 [facility] [address] [id number] [address] [place] [address] Dec, Anxiety F41.9 [facility] [address] [id number] [address] [place] [address] Dec, Other chronic pain G89.29 an d Anxiety F41.9 [facility] [address] [id number] [address] [place] [address] Dec, Via [facility] [address] [place] [id number] Dec, Neurogenic bladder N31.9 and Suprapubic catheter Z93.59 [facility] [address] [id number] [address] [place] [address] Nov, Other chronic pain G89.29 an d Anxiety F41.9 [facility] [address] [id number] [address] [place] [address] Nov, Via [facility] [address] [place] [id number] Nov, Suprapubic catheter Z93.59 [facility] [address] [id number] [address] [place] [address] Oct, Other chronic pain G89.29 an d Anxiety F41.9 [facility] [address] [id number] [address] [place] [address] Oct, [facility] [address] [id number] [address] [place] [address] Oct, Suprapubic catheter Z93.59 [facility] [address] [id number] [address] [place] [phone] Oct, Via [facility] [address] [place] [id number] Oct, [facility] [address] [id number] [address] [place] [address] Oct, Anxiety F41.9 [facility] [address] [id number] [address] [place] [address] Oct, Anxiety F41.9 Via [facility] [address] [place] [id number] Oct, Other chronic pain G89.29 [facility] [address] [id number] [address] [place] [address] Sep, Other chronic pain G89.29 [facility] [address] [place] [id number] Sep, Suprapubic catheter Z93.59 and Cervicalg ia M54.2 [facility] [address] [id number] [address] [place] [phone] Sep, [facility] [address] [id number] [address] [place] [address] Sep, [facility] [address] [id number] [address] [place] [address] Sep, Via [facility] [address] [place] [id number] Aug, Cystitis N30.90 [facility] [address] [id number] [address] [place] [address] Aug, [facility] [address] [id number] [address] [place] [address] Aug, Other chronic pain G89.29 [facility] [address] [id number] [address] [place] [address] Aug, [facility] [address] [place] [id number] Aug, Encounter for suprapubic catheter care Z 43.5 [facility] [address] [id number] [address] [place] [address] Jul, [facility] [address] [place] [id number] Jul, [facility] [address] [id number] [address] [place] [address] Jul, Other chronic pain G89.29 [facility] [address] [id number] [address] [place] [address] Jul, [facility] [address] [id number] [address] [place] [address] Jul, [facility] [address] [place] [id number] Jun, 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 [facility] [address] [id number] [address] [place] [address] Jun, Other chronic pain G89.29 [facility] [address] [id number] [address] [place] [address] Jun, [facility] [address] [place] [id number] May, Anxiety F41.9 ; Type 2 diabetes mellitus without complication, without long-term current use of insulin E11.9 ; Hypertension I10 ; Low back pain M54.5 ; Paroxysmal atrial fibrillation I48.0 and 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 [facility] [address] [id number] [address] [place] [address] May, Other chronic pain G89.29 [facility] [address] [place] [id number] May, Low back pain M54.5 [facility] [address] [id number] [address] [place] [address] May, [facility] [address] [id number] [address] [place] [address] Apr, Other chronic pain G89.29 [facility] [address] [id number] [address] [place] [address] Apr, [facility] [address] [id number] [address] [place] [address] Apr, [facility] [address] [place] [id number] Apr, Closed compression fracture of L3 lumbar vertebra with routine healing, subsequent encounter S32.030D [facility] [address] [place] [id number] Apr, Low back pain M54.5 [facility] [address] [place] [address] Apr, Coccydynia M53.3 [facility] [address] [id number] [address] [place] [address] March, [facility] [address] [id number] [address] [place] [address] March, Other chronic pain G89.29 [facility] [address] [id number] [address] [place] [address] March, [facility] [address] [id number] [address] [place] [address] March, [facility] [address] [id number] [address] [place] [address] Feb, [facility] [address] [id number] [address] [place] [address] Feb, Other chronic pain G89.29 [facility] [address] [place] [id number] Feb, Other chronic pain G89.29 and Anxiety F4 1.9 [facility] [address] [id number] [address] [place] [address] Feb, [facility] [address] [id number] [address] [place] [address] Jan, [facility] [address] [facility] [id number] [address] [place] [address] Jan, [facility] [address] [facility] [id number] [address] [place] [address] Jan, [facility] [address] [facility] [id number] [address] [place] [address] Jan, [facility] [address] [facility] [id number] [address] [place] [address] Dec, Via [employer] [facility] [address] [place] [id number] Dec, Peripheral vascular disease I73.9 ; 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 [address] [id number] [place] [id number] Nov, Anxiety F41.9 [facility] [address] [facility] [id number] [address] [place] [address] Nov, [facility] [address] [id number] [place] [id number] Nov, Anxiety F41.9 [facility] [employer] [address] [place] [id number] Nov, Status post surgery Z98.890 ; Confused R 41.0 ; Anxiety F41.9 and Other chronic pain G89.29 [facility] [address] [id number] [place] [id number] Nov, Other chronic pain G89.29 [facility] [address] [facility] [id number] [address] [place] [address] Oct, [facility] [address] [id number] [place] [id number] Oct, Other chronic pain G89.29 [facility] [address] [id number] [address] [place] [address], [place] [address] Oct, Anxiety F41.9 [facility] [address] [id number] [place] [id number] Sep, Other chronic pain G89.29 [facility] [address] [id number] [place] [id number] Sep, [facility] [address] [place] [id number] Aug, Dysuria R30.0 and Anxiety F41.9 [facility] [address] [id number] [address] [place] [address], [place] [address] Aug, [facility] [address] [id number] [place] [id number] Aug, Other chronic pain G89.29 [facility] [address] [id number] [address] [place] [address], [place] [address] Jul, Other chronic pain G89.29 [facility] [address] [id number] [place] [id number] Jun, [facility] [address] [id number] [place] [id number] Jun, Other chronic pain G89.29 [facility] [address] [id number] [address] [place] [address], [place] [address] Jun, [facility] [address] [id number] [address] [place] [address] May, Other chronic pain G89.29 [facility] [address] [id number] [address] [place] [address], [place] [address] Apr, Other chronic pain G89.29 [facility] [address] [place] [id number] Apr, Reactive depression F32.9 and Pharyngeal dysphagia R13.13 [facility] [address] [facility] [id number] [address] [place] [id number] Apr, Urinary tract infection with out hematuria, site unspecified N39.0 [facility] [address] [facility] [id number] [address] [place] [phone] March, Other chronic pain G89.29 [facility] [address] [id number] [address] [place] [id number] Feb, Other chronic pain G89.29 [facility] [address] [facility] [id number] [address] [place] [id number] Feb, [facility] [id number] [place] [id number] Feb, Via [facility] [address] [place] [id number] Feb, Dysuria R30.0 and Ventral hernia without obstruction or gangrene K43.9 [facility] [address] [facility] [id number] [address] [place] [phone] Jan, Other chronic pain G89.29 [facility] [id number] [place] [id number] Dec, Other chronic pain G89.29 [facility] [address] [facility] [id number] [address] [place] [id number] Nov, Other chronic pain G89.29 [facility] [address] [place] [id number] Nov, Lymphadenitis I88.9 [facility] [address] [facility] [id number] [address] [place] [phone] Nov, Other chronic pain G89.29 [facility] [address] [id number] [address] [place] [phone] Nov, [facility] [address] [id number] [place] [id number] Nov, Other chronic pain G89.29 Via [facility] [address] [place] [id number] Oct, Low back pain M54.5 ; Hypertension I10 a nd Type 2 diabetes mellitus without complication, without long-term current use of insulin E11.9 [facility] [address] [id number] [address] [place] [phone] Oct, [facility] [address] [id number] [address] [place] [id number] Oct, [facility] [address] [id number] [address] [place] [id number] Oct, [facility] [address] [id number] [address] [place] [id number] Oct, [facility] [address] [id number] [address] [place] [id number] Sep, [facility] [address] [id number] [address] [place] [id number] Sep, [facility] [facility] [address] [id number] [address] [place] [address] Aug, Other chronic pain G89.29 [facility] [address] [id number] [address] [place] [address] Jul, [facility] [address] [id number] [address] [place] [address] Jul, [facility] [address] [id number] [address] [place] [address] Jul, [facility] [address] [id number] [address] [place] [address] Jun, [facility] [address] [id number] [address] [place] [address] Jun, [facility] [facility] [address] [place] [id number] Jun, Low back pain M54.5 ; Other chronic pain G89.29 and Coronary artery disease I25.10 [facility] [address] [id number] [address] [place] [address] 08 Jun, 2016 [facility] [address] [id number] [address] [place] [address] May, [facility] [address] [id number] [address] [place] [address] 15 May, 2016 [facility] [address] [id number] [address] [place] [address] May, Other chronic pain G89.29 [facility] [address] [id number] [address] [place] [address] May, [facility] [address] [id number] [address] [place] [address] Apr, [facility] [address] [id number] [address] [place] [address] 17 Apr, 2016 Acute cystitis without hemat uria N30.00 [facility] [address] [id number] [address] [place] [address] 16 Apr, 2016 Acute cystitis without hemat uria N30.00 ; Coronary artery disease I25.10 ; Low back pain M54.5 and Other chronic pain G89.29 [facility] [address] [id number] [address] [place] [address] Apr, Other chronic pain G89.29 [facility] [address] [id number] [address] [place] [address] March, Other chronic pain G89.29 [facility] [address] [id number] [address] [place] [address] 18 Feb, 2016 [facility] [address] [id number] [address] [place] [id number] 15 Feb, 2016 Arthritis M19.90 [facility] [address] [id number] [address] [place] [address] Feb, [facility] [address] [id number] [address] [place] [address] Jan, [facility] [address] [id number] [address] [place] [address] Jan, [facility] [address] [id number] [address] [place] [address] Jan, Other chronic pain G89.29 [facility] [address] [id number] [address] [place] [address] Jan, Hypertension I10 ; Coronary artery disease I25.10 and Insomnia G47.00 [facility] [address] [id number] [address] [place] [address] Jan, [facility] [address] [id number] [address] [place] [address] Dec, Right hip pain M25.551 [facility] [address] [id number] [address] [place] [address] Dec, [facility] [address] [id number] [address] [place] [address] Dec, [facility] [address] [id number] [address] [place] [address] Dec, [facility] [address] [id number] [address] [place] [address] Dec, Other chronic pain G89.29 [facility] [address] [id number] [address] [place] [address] Dec, [facility] [address] [id number] [address] [place] [address] Nov, [facility] [address] [id number] [address] [place] [address] Nov, Other chronic pain G89.29 [facility] [address] [id number] [address] [place] [address] Nov, Right hip pain M25.551 and C oronary artery disease I25.10 [facility] [address] [id number] [address] [place] [address] Nov, Other chronic pain G89.29 [facility] [address] [id number] [address] [place] [address] Oct, [facility] [address] [id number] [address] [place] [address] Oct, [facility] [address] [id number] [address] [place] [address] Sep, [facility] [address] [id number] [address] [place] [address] Sep, [facility] [address] [id number] [address] [place] [address] Aug, [facility] [address] [id number] [address] [place] [address] Aug, Hypertension I10 ; Coronary artery disease I25.10 and Arthritis M19.90 [facility] [address] [id number] [address] [place] [address] Jun, [facility] [address] [id number] [address] [place] [address] Jun, Essential hypertension, jayson gn 401.1 ; Other chronic pain 338.29 and Chronic airway obstruction, not elsewhere classified 496 [facility] [address] [id number] [address] [place] [address] Jun, [facility] [address] [id number] [address] [place] [address] Jun, [facility] [address] [id number] [address] [place] [address] Jun, [facility] [address] [id number] [address] [place] [address] May, [facility] [address] [id number] [address] [place] [address] [place] [address] May, [facility] [address] [id number] [address] [place] [address], [place] [address] Apr, [facility] [address] [id number] [address] [place] [address], [place] [address] Apr, [facility] [address] [id number] [address] [place] [address], [place] [address] Apr, [facility] [address] [id number] [address] [place] [address], [place] [address] March, [facility] [address] [id number] [address] [place] [address], [place] [address] March, [facility] [address] [id number] [address] [place] [address], [place] [address] March, [facility] [address] [id number] [address] [place] [address], [place] [address] March, [facility] [address] [id number] [address] [place] [address], [place] [address] March, Sialadenitis 527.2 [facility] [address] [id number] [address] [place] [address], [place] [address] Feb, [facility] [address] [id number] [address] [place] [address], [place] [address] Feb, [facility] [address] [id number] [address] [place] [address], [place] [address] Feb, [facility] [address] [id number] [address] [place] [address], [place] [address] Feb, [facility] [address] [id number] [address] [place] [address], [place] [address] Feb, [facility] [address] [id number] [address] [place] [address], [place] [address] Jan, [facility] [address] [id number] [address] [place] [address], [place] [address] Jan, [facility] [address] [id number] [address] [place] [address], [place] [address] Jan, [facility] [address] [id number] [address] [place] [address], [place] [address] Jan, [facility] [address] [id number] [address] [place] [address], [place] [address] Jan, [facility] [address] [id number] [address] [place] [address], [place] [address] Jan, [facility] [address] [id number] [address] [place] [address], [place] [address] Dec, [facility] [address] [id number] [address] [place] [address], [place] [address] Dec, 2014 [facility] [address] [id number] [address] [place] [address], [place] [address] Dec, [facility] [address] [id number] [address] [place] [address], [place] [address] Dec, 2014 [facility] [address] [id number] [address] [place] [address], [place] [address] Dec, [facility] [address] [id number] [address] [place] [address], [place] [address] Dec, [facility] [address] [id number] [address] [place] [address], [place] [address] Nov, [facility] [address] [id number] [address] [place] [address], [place] [address] Nov, [facility] [address] [id number] [address] [place] [address], [place] [address] Nov, [facility] [address] [id number] [address] [place] [address], [place] [address] Nov, [facility] [address] [id number] [address] [place] [address], [place] [address] Nov, [facility] [address] [id number] [address] [place] [address], [place] [address] Nov, [facility] [place] [address] [id number] [address] [place] [address], [place] [address] Nov, [facility] [address] [id number] [address] [place] [address], [place] [address] Nov, [facility] [address] [id number] [address] [place] [address], [place] [address] Nov, [facility] [address] [id number] [address] [place] [address], [place] [address] Nov, [facility] [address] [id number] [address] [place] [address], [place] [address] Nov, [facility] [address] [id number] [address] [place] [address], [place] [address] Nov, [facility] [address] [id number] [address] [place] [address], [place] [address] Nov, [facility] [address] [id number] [address] [place] [address], [place] [address] Nov, [facility] [address] [id number] [address] [place] [address], [place] [address] Oct, [facility] [address] [id number] [address] [place] [address], [place] [address] Oct, [facility] [address] [id number] [address] [place] [address], [place] [address] Oct, [facility] [address] [id number] [address] [place] [address], [place] [address] 18 Oct, 2014 [facility] [address] [id number] [address] [place] [address], [place] [address] 18 Oct, 2014 [facility] [address] [id number] [address] [place] [address], [place] [address] 17 Oct, 2014 [facility] [address] [id number] [address] [place] [address], [place] [address] Oct, [facility] [address] [id number] [address] [place] [address], [place] [address] Oct, [facility] [address] [id number] [address] [place] [address], [place] [address] Oct, [facility] [address] [id number] [address] [place] [address], [place] [address] Sep, [facility] [address] [id number] [address] [place] [address], [place] [address] Sep, [facility] [address] [id number] [address] [place] [address], [place] [address] Sep, [facility] [address] [id number] [address] [place] [address], [place] [address] Sep, [facility] [address] [id number] [address] [place] [address], [place] [address] Sep, [facility] [address] [id number] [address] [place] [address], [place] [address] Sep, [facility] [address] [id number] [address] [place] [address], [place] [address] Sep, [facility] [address] [id number] [address] [place] [address], [place] [address] Sep, [facility] [address] [id number] [address] [place] [address], [place] [address] Sep, [facility] [address] [id number] [address] [place] [address], [place] [address] Sep, [facility] [address] [id number] [address] [place] [address], [place] [address] Sep, [facility] [address] [id number] [address] [place] [address], [place] [address] Sep, [facility] [address] [id number] [address] [place] [address], [place] [address] Aug, [facility] [address] [id number] [address] [place] [address] 30 Aug, 2014 [facility] [address] [id number] [address] [place] [address], [place] [address] 29 Aug, 2014 [facility] [address] [id number] [address] [place] [address], [place] [address] 29 Aug, 2014 [facility] [address] [id number] [address] [place] [address], [place] [address] 28 Aug, 2014 [facility] [address] [id number] [address] [place] [address], [place] [address] 28 Aug, 2014 [facility] [address] [id number] [address] [place] [address], [place] [address] 17 Aug, 2014 [facility] [address] [id number] [address] [place] [address], [place] [address] 17 Aug, 2014 [facility] [address] [id number] [address] [place] [address], [place] [address] 30 Jul, 2013 [facility] [address] [id number] [address] [place] [address], [place] [address] 30 Sep, 2013 [facility] [address] [id number] [address] [place] [address], [place] [address] 30 Sep, 2013 [facility] [address] [id number] [address] [place] [address], [place] [address] 30 Sep, 2013 [facility] [address] [id number] [address] [place] [address], [place] [address] 25 Sep, 2013 [facility] [address] [id number] [address] [place] [address] 25 Sep, 2013 [facility] [address] [id number] [address] [place] [address], [place] [address] 15 Sep, 2013 [facility] [address] [id number] [address] [place] [address], [place] [address] 15 Sep, 2013 [facility] [address] [id number] [address] [place] [address], [place] [address] 11 Jul, 2013 [facility] [address] [id number] [facility] [place] [address] Jul, [facility] [address] [id number] [facility] [place] [address] Jun, [facility] [address] [id number] [facility] [place] [address] Jun, [facility] [address] [id number] [address] [place] [address], [place] [address] Jun, [facility] [address] [id number] [address] [place] [address], [place] [address] Jun, [facility] [address] [id number] [address] [place] [address], [place] [address] Jun, [facility] [address] [id number] [address] [place] [address], [place] [address] Jun, [facility] [address] [id number] [address] [place] [address], [place] [address] Jun, [facility] [address] [id number] [address] [place] [address], [place] [address] Jun, [facility] [address] [id number] [address] [place] [address], [place] [address] Jun, [facility] [address] [id number] [address] [place] [address], [place] [address] Jun, [facility] [address] [id number] [address] [place] [address], [place] [address] Jun, [facility] [address] [id number] [address] [place] [address], [place] [address] Jun, [facility] [address] [id number] [address] [place] [address], [place] [address] Jun, [facility] [address] [id number] [address] [place] [address], [place] [address] Jun, [facility] [address] [id number] [address] [place] [address], [place] [address] Jun, [facility] [address] [id number] [facility] [place] [address] Jun, [facility] [address] [id number] [facility] [place] [address] Jun, [facility] [address] [id number] [facility] [place] [address] Jun, [facility] [address] [id number] [address] [place] [address], [place] [address] Jun, [facility] [address] [id number] [address] [place] [address], [place] [address] Jun, [facility] [address] [id number] [address] [place] [address], [place] [address] Jun, [facility] [address] [id number] [address] [place] [address], [place] [address] Jun, [facility] [address] [id number] [address] [place] [address], [place] [address] May, [facility] [address] [id number] [address] [place] [address], [place] [address] May, [facility] [address] [id number] [address] [place] [address], [place] [address] May, [facility] [address] [id number] [address] [place] [address], [place] [address] May, [facility] [address] [id number] [address] [place] [address], [place] [address] May, [facility] [address] [id number] [address] [place] [address], [place] [address] May, [facility] [address] [id number] [address] [place] [address], [place] [address] May, [facility] [address] [id number] [address] [place] [address], [place] [address] May, [facility] [address] [id number] [address] [place] [address], [place] [address] May, [facility] [address] [id number] [facility] [place] [address] May, [facility] [address] [id number] [address] [place] [address], [place] [address] May, [facility] [place] [facility] [address] [id number] [address] [place] [address], [place] [address] May, [facility] [place] [facility] [address] [id number] [address] [place] [address], [place] [address] May, [facility] [place] [facility] [address] [id number] [address] [place] [address], [place] [address] Apr, [facility] [place] [facility] [address] [id number] [address] [place] [address], [place] [address] Apr, [facility] [address] [id number] [address] [place] [address], [place] [address] Apr, [facility] [place] [address] [id number] [address] [place] [address], [place] [address] Apr, [facility] [place] [facility] [address] [id number] [address] [place] [address], [place] [address] Apr, [facility] [place] [facility] [address] [id number] [address] [place] [address], [place] [address] Apr, [facility] [place] [facility] [address] [id number] [address] [place] [address], [place] [address] Apr, [facility] [place] [facility] [address] [id number] [address] [place] [address], [place] [address] Apr, [facility] [place] [facility] [address] [id number] [address] [place] [address], [place] [address] Apr, [facility] [place] [facility] [address] [id number] [address] [place] [address], [place] [address] March, [facility] [place] [facility] [address] [id number] [address] [place] [address], [place] [address] March, [facility] [place] [facility] [address] [id number] [facility] [place] [address] March, [facility] [address] [id number] [address] [place] [address], [place] [address] March, [facility] [address] [id number] [address] [place] [address], [place] [address] March, [facility] [address] [id number] [address] [place] [address], [place] [address] March, [facility] [address] [id number] [address] [place] [address], [place] [address] March, [facility] [address] [id number] [address] [place] [address], [place] [address] March, [facility] [address] [id number] [address] [place] [address], [place] [address] March, [facility] [address] [id number] [address] [place] [address], [place] [address] March, [facility] [address] [id number] [address] [place] [address], [place] [address] March, [facility] [address] [id number] [address] [place] [address], [place] [address] March, [facility] [address] [id number] [address] [place] [address], [place] [address] March, [facility] [address] [id number] [address] [place] [address], [place] [address] March, [facility] [address] [id number] [address] [place] [address], [place] [address] March, [facility] [address] [id number] [address] [place] [address], [place] [address] March, [facility] [address] [id number] [address] [place] [address], [place] [address] March, [facility] [address] [id number] [address] [place] [address], [place] [address] March, [facility] [address] [id number] [facility] [place] [address] March, [facility] [address] [id number] [address] [place] [address], [place] [address] March, [facility] [address] [id number] [address] [place] [address], [place] [address] Feb, [facility] [address] [id number] [address] [place] [address], [place] [address] Feb, [facility] [address] [id number] [address] [place] [address], [place] [address] Feb, [facility] [address] [id number] [address] [place] [address], [place] [address] Feb, [facility] [address] [id number] [address] [place] [address], [place] [address] Feb, [facility] [address] [id number] [address] [place] [address], [place] [address] Feb, [facility] [address] [id number] [address] [place] [address], [place] [address] Feb, [facility] [address] [id number] [address] [place] [address], [place] [address] Feb, [facility] [address] [id number] [address] [place] [address], [place] [address] Jan, [facility] [address] [id number] [address] [place] [address], [place] [address] Jan, [facility] [address] [id number] [address] [place] [address], [place] [address] Jan, [facility] [place] [address] [id number] [address] [place] [address], [place] [address] 24 Jan, 2014 [facility] [address] [id number] [address] [place] [address], [place] [address] 13 Jan, 2014 [facility] [address] [id number] [address] [place] [address] 13 Jan, 2014 [facility] [address] [id number] [address] [place] [address], [place] [address] Jan, [facility] [place] [address] [id number] [address] [place] [address], [place] [address] Jan, [facility] [address] [id number] [address] [place] [address], [place] [address] Jan, [facility] [address] [id number] [address] [place] [address], [place] [address] Jan, [facility] [address] [id number] [address] [place] [address], [place] [address] Dec, [facility] [address] [id number] [address] [place] [address], [place] [address] Dec, [facility] [address] [id number] [address] [place] [address], [place] [address] Dec, [facility] [address] [id number] [address] [place] [address], [place] [address] Dec, [facility] [address] [id number] [address] [place] [address], [place] [address] Dec, [facility] [address] [id number] [address] [place] [address], [place] [address] Dec, [facility] [address] [id number] [address] [place] [address], [place] [address] Dec, [facility] [address] [id number] [address] [place] [address], [place] [address] Dec, [facility] [address] [id number] [address] [place] [address], [place] [address] Nov, [facility] [address] [id number] [address] [place] [address], [place] [address] Nov, [facility] [address] [id number] [address] [place] [address], [place] [address] Nov, [facility] [address] [id number] [address] [place] [address], [place] [address] Nov, [facility] [address] [id number] [address] [place] [address], [place] [address] Nov, [facility] [address] [id number] [address] [place] [address], [place] [address] Nov, [facility] [address] [id number] [address] [place] [address], [place] [address] Nov, [facility] [address] [id number] [address] [place] [address], [place] [address] Nov, [facility] [address] [id number] [address] [place] [address], [place] [address] Nov, [facility] [address] [id number] [address] [place] [address], [place] [address] Nov, [facility] [address] [id number] [address] [place] [address], [place] [address] Nov, [facility] [address] [id number] [address] [place] [address], [place] [address] Nov, [facility] [address] [id number] [address] [place] [address], [place] [address] Nov, [facility] [place] [address] [id number] [address] [place] [address], [place] [address] Oct, [facility] [address] [id number] [address] [place] [address], [place] [address] Oct, [facility] [address] [id number] [address] [place] [address], [place] [address] Oct, [facility] [address] [id number] [address] [place] [address], [place] [address] Oct, [facility] [address] [id number] [address] [place] [address], [place] [address] Oct, [facility] [address] [id number] [address] [place] [address], [place] [address] 23 Oct, 2013 [facility] [place] [address] [id number] [address] [place] [address], [place] [address] 18 Oct, 2013 [facility] [address] [id number] [address] [place] [address], [place] [address] 18 Oct, 2013 [facility] [address] [id number] [address] [place] [address], [place] [address] 17 Oct, 2013 [facility] [address] [id number] [address] [place] [address], [place] [address] 17 Oct, 2013 [facility] [address] [id number] [address] [place] [address], [place] [address] Oct, [facility] [address] [id number] [address] [place] [address], [place] [address] Oct, [facility] [address] [id number] [address] [place] [address], [place] [address] Oct, [facility] [place] [address] [id number] [address] [place] [address], [place] [address] 02 Oct, 2013 [facility] [place] [address] [id number] [address] [place] [address], [place] [address] 14 Sep, 2013 [facility] [address] [id number] [address] [place] [address], [place] [address] 14 Sep, 2013 [facility] [place] [address] [id number] [address] [place] [address], [place] [address] 05 Sep, 2013 [facility] [address] [id number] [address] [place] [address], [place] [address] 05 Sep, 2013 [facility] [address] [id number] [address] [place] [address], [place] [address] 04 Sep, 2013 [facility] [address] [id number] [address] [place] [address], [place] [address] 04 Sep, 2013 [facility] [address] [id number] [address] [place] [address], [place] [address] Sep, [facility] [address] [id number] [address] [place] [address], [place] [address] Sep, [facility] [address] [id number] [address] [place] [address], [place] [address] Sep, [facility] [address] [id number] [address] [place] [address], [place] [address] Sep, [facility] [address] [id number] [address] [place] [address], [place] [address] Aug, [facility] [address] [id number] [address] [place] [address], [place] [address] Aug, [facility] [address] [id number] [address] [place] [address], [place] [address] Aug, [facility] [address] [id number] [address] [place] [address], [place] [address] Aug, [facility] [address] [id number] [address] [place] [address], [place] [address] Aug, [facility] [address] [id number] [address] [place] [address], [place] [address] Aug, [facility] [address] [id number] [address] [place] [address] Aug, [facility] [address] [id number] [address] [place] [address] Aug, [facility] [address] [id number] [address] [place] [address] Aug, [facility] [address] [id number] [address] [place] [address], [place] [address] Aug, [facility] [address] [id number] [address] [place] [address] Aug, [facility] [address] [id number] [address] [place] [address] Aug, [facility] [address] [id number] [address] [place] [address] 18 Aug, 2013 [facility] [address] [id number] [address] [place] [address], [place] [address] 18 Aug, 2013 [facility] [address] [id number] [address] [place] [address], [place] [address] 17 Aug, 2013 [facility] [address] [id number] [address] [place] [address], [place] [address] 14 Aug, 2013 [facility] [address] [id number] [address] [place] [address], [place] [address] 14 Aug, 2013 [facility] [address] [id number] [address] [place] [address], [place] [address] 01 Aug, 2013 [facility] [address] [id number] [address] [place] [address], [place] [address] 20 Jul, 2013 [facility] [address] [id number] [address] [place] [address], [place] [address] 19 Jul, 2013 [facility] [address] [id number] [address] [place] [address], [place] [address] 18 Jul, 2013 [facility] [address] [id number] [address] [place] [address], [place] [address] 11 Jul, 2013 [facility] [address] [id number] [address] [place] [address], [place] [address] 11 Jul, 2013 [facility] [address] [id number] [address] [place] [address], [place] [address] 28 Jun, 2013 [facility] [address] [id number] [address] [place] [address], [place] [address] 23 Jun, 2013 [facility] [address] [id number] [address] [place] [address], [place] [address] 23 Jun, 2013 [facility] [address] [id number] [address] [place] [address], [place] [address] 15 Jun, 2013 [facility] [address] [id number] [address] [place] [address], [place] [address] 14 Jun, 2013 [facility] [address] [id number] [facility] [place] [address] Jun, [facility] [place] [address] [id number] [address] [place] [address], [place] [address] Jun, [facility] [address] [id number] [address] [place] [address], [place] [address] Jun, [facility] [place] [address] [id number] [address] [place] [address], [place] [address] Jun, [facility] [address] [id number] [address] [place] [address], [place] [address] Jun, [facility] [address] [id number] [address] [place] [address], [place] [address] May, [facility] [address] [id number] [address] [place] [address], [place] [address] May, [facility] [place] [address] [id number] [address] [place] [address], [place] [address] May, [facility] [address] [id number] [address] [place] [address], [place] [address] May, [facility] [place] [address] [id number] [address] [place] [address], [place] [address] May, [facility] [address] [id number] [address] [place] [address], [place] [address] May, [facility] [place] [address] [id number] [address] [place] [address], [place] [address] May, [facility] [address] [id number] [address] [place] [address], [place] [address] May, [facility] [address] [id number] [address] [place] [address], [place] [address] May, [facility] [address] [id number] [address] [place] [address], [place] [address] Apr, [facility] [address] [id number] [address] [place] [address], [place] [address] Apr, [facility] [place] [address] [id number] [address] [place] [address], [place] [address] Apr, [facility] [address] [id number] [address] [place] [address], [place] [address] Apr, [facility] [address] [id number] [address] [place] [address], [place] [address] Apr, [facility] [address] [id number] [address] [place] [address], [place] [address] Apr, [facility] [address] [id number] [address] [place] [address], [place] [address] Apr, [facility] [address] [id number] [address] [place] [address], [place] [address] March, [facility] [address] [id number] [address] [place] [address], [place] [address] Feb, [facility] [address] [id number] [address] [place] [address], [place] [address] Feb, [facility] [address] [id number] [address] [place] [address], [place] [address] Feb, [facility] [address] [id number] [address] [place] [address], [place] [address] Jan, [facility] [address] [id number] [address] [place] [address], [place] [address] Jan, [facility] [address] [id number] [address] [place] [address], [place] [address] Jan, [facility] [address] [id number] [address] [place] [address], [place] [address] 14 Jan, 2013 [facility] [address] [id number] [address] [place] [address], [place] [address] 12 Jan, 2013 [facility] [address] [id number] [address] [place] [address], [place] [address] 08 Jan, 2013 [facility] [address] [id number] [address] [place] [address], [place] [address] 07 Jan, 2013 [facility] [place] [address] [id number] [address] [place] [address], [place] [address] 04 Jan, 2013 [facility] [address] [id number] [address] [place] [address], [place] [address] 28 Dec, 2012 [facility] [address] [id number] [address] [place] [address], [place] [address] 25 Dec, 2012 [facility] [address] [id number] [address] [place] [address], [place] [address] 13 Dec, 2012 [facility] [address] [id number] [address] [place] [address], [place] [address] 11 Dec, 2012 [facility] [address] [id number] [address] [place] [address], [place] [address] 07 Dec, 2012 [facility] [address] [id number] [address] [place] [address], [place] [address] 06 Dec, 2012 [facility] [place] [address] [id number] [address] [place] [address], [place] [address] 05 Dec, 2012 [facility] [address] [id number] [address] [place] [address], [place] [address] Nov, [facility] [address] [id number] [address] [place] [address], [place] [address] 24 Nov, 2012 [facility] [place] [address] [id number] [address] [place] [address], [place] [address] 18 Nov, 2012 [facility] [address] [id number] [address] [place] [address], [place] [address] 15 Nov, 2012 [facility] [address] [id number] [address] [place] [address], [place] [address] 10 Nov, 2012 [facility] [address] [id number] [address] [place] [address], [place] [address] 10 Nov, 2012 [facility] [address] [id number] [address] [place] [address], [place] [address] Nov, [facility] [address] [id number] [address] [place] [address], [place] [address] Oct, [facility] [address] [id number] [address] [place] [address], [place] [address] Oct, [facility] [address] [id number] [address] [place] [address], [place] [address] Oct, [facility] [address] [id number] [address] [place] [address], [place] [address] Oct, [facility] [address] [id number] [address] [place] [address], [place] [address] Oct, [facility] [address] [id number] [address] [place] [address], [place] [address] Oct, [facility] [address] [id number] [address] [place] [address], [place] [address] Oct, [facility] [address] [id number] [address] [place] [address], [place] [address] Oct, [facility] [address] [id number] [address] [place] [address], [place] [address] Oct, [facility] [address] [id number] [address] [place] [address], [place] [address] Oct, [facility] [address] [id number] [address] [place] [address], [place] [address] Oct, [facility] [address] [id number] [address] [place] [address], [place] [address] Oct, [facility] [address] [id number] [address] [place] [address], [place] [address] Sep, [facility] [address] [id number] [address] [place] [address], [place] [address] Sep, [facility] [address] [id number] [address] [place] [address], [place] [address] Sep, [facility] [address] [id number] [address] [place] [address] Sep, [facility] [address] [id number] [address] [place] [address], [place] [address] Sep, [facility] [address] [id number] [address] [place] [address] Sep, [facility] [address] [id number] [address] [place] [address] Sep, [facility] [address] [id number] [address] [place] [address] Sep, [facility] [address] [id number] [address] [place] [address], [place] [address] Sep, [facility] [address] [id number] [address] [place] [address] Sep, [facility] [address] [id number] [address] [place] [address] Sep, [facility] [address] [id number] [address] [place] [address] Aug, [facility] [address] [id number] [address] [place] [address] Aug, [facility] [address] [id number] [address] [place] [address] Aug, [facility] [address] [id number] [address] [place] [address] Aug, [facility] [address] [id number] [address] [place] [address] Aug, [facility] [address] [id number] [address] [place] [address] Aug, [facility] [address] [id number] [address] [place] [address] Aug, [facility] [address] [id number] [address] [place] [address] Aug, [facility] [address] [id number] [facility] [place] [address] Aug, [facility] [address] [id number] [address] [place] [address], [place] [address] Aug, [facility] [address] [id number] [address] [place] [address], [place] [address] Jul, [facility] [address] [id number] [address] [place] [address], [place] [address] Jul, [facility] [address] [id number] [address] [place] [address], [place] [address] Jul, [facility] [address] [id number] [address] [place] [address], [place] [address] Jul, [facility] [address] [id number] [address] [place] [address], [place] [address] Jun, [facility] [address] [id number] [address] [place] [address], [place] [address] Jun, [facility] [address] [id number] [address] [place] [address], [place] [address] Jun, [facility] [address] [id number] [address] [place] [address], [place] [address] Jun, [facility] [address] [id number] [address] [place] [address], [place] [address] Jun, [facility] [address] [id number] [address] [place] [address], [place] [address] Jun, [facility] [address] [id number] [address] [place] [address], [place] [address] Jun, [facility] [address] [id number] [address] [place] [address], [place] [address] May, [facility] [address] [id number] [address] [place] [address], [place] [address] May, [facility] [address] [id number] [address] [place] [address], [place] [address] May, [facility] [address] [id number] [address] [place] [address], [place] [address] May, [facility] [address] [id number] [address] [place] [address], [place] [address] May, [facility] [address] [id number] [address] [place] [address], [place] [address] Apr, [facility] [address] [id number] [address] [place] [address], [place] [address] Apr, [facility] [address] [id number] [address] [place] [address], [place] [address] Apr, [facility] [address] [id number] [address] [place] [address], [place] [address] Apr, [facility] [address] [id number] [address] [place] [address], [place] [address] Apr, [facility] [address] [id number] [address] [place] [address], [place] [address] March, [facility] [address] [id number] [address] [place] [address], [place] [address] March, [facility] [address] [id number] [address] [place] [address], [place] [address] March, [facility] [address] [id number] [address] [place] [address], [place] [address] March, [facility] [address] [id number] [address] [place] [address], [place] [address] March, [facility] [address] [id number] [address] [place] [address], [place] [address] March, [facility] [address] [id number] [address] [place] [address], [place] [address] March, [facility] [address] [id number] [address] [place] [address], [place] [address] March, [facility] [address] [id number] [address] [place] [address], [place] [address] March, [facility] [address] [id number] [address] [place] [address], [place] [address] March, [facility] [address] [id number] [address] [place] [address], [place] [address] 30 Feb, 2012 [facility] [address] [id number] [address] [place] [address], [place] [address] Feb, [facility] [address] [id number] [address] [place] [address], [place] [address] Feb, [facility] [address] [id number] [address] [place] [address], [place] [address] Feb, [facility] [address] [id number] [address] [place] [address], [place] [address] Feb, [facility] [address] [id number] [address] [place] [address], [place] [address] Feb, [facility] [place] [address] [id number] [address] [place] [address], [place] [address] Feb, [facility] [address] [id number] [address] [place] [address], [place] [address] Feb, [facility] [place] [address] [id number] [address] [place] [address], [place] [address] Feb, [facility] [address] [id number] [address] [place] [address], [place] [address] Jan, [facility] [address] [id number] [address] [place] [address], [place] [address] Jan, [facility] [address] [id number] [address] [place] [address], [place] [address] 05 Jan, 2012 [facility] [address] [id number] [address] [place] [address], [place] [address] Jan, [facility] [address] [id number] [address] [place] [address], [place] [address] Dec, [facility] [address] [id number] [address] [place] [address] Dec, [facility] [address] [id number] [address] [place] [address] Nov, [facility] [address] [id number] [address] [place] [address] Nov, [facility] [address] [id number] [address] [place] [address] Nov, [facility] [address] [id number] [address] [place] [address] Nov, [facility] [address] [id number] [address] [place] [address] Nov, [facility] [address] [id number] [address] [place] [address] Oct, [facility] [address] [id number] [address] [place] [address] Oct, [facility] [address] [id number] [address] [place] [address] Oct, [facility] [address] [id number] [address] [place] [place] [id number] Oct, [facility] [address] [id number] [address] [place] [id number] Oct, [facility] [address] [id number] [address] [place] [id number] Oct, [facility] [address] [id number] [address] [place] [id number] Oct, [facility] [address] [id number] [address] [place] [id number] Oct, [facility] [address] [id number] [address] [place] [id number] Sep, IMMUNIZATIONS No Known Immunizations SOCIAL HISTORY [...] Hospitalization History [facility]- Urosepsis, ab d pain and fever, discharged 11/27/2017 11/26/2017 Hospitalization History [facility]- Went Unrepsonsive, Hit head 2017 Hospitalization History [facility] [place]- Back Pain 05/05/ 8
--- OUTSIDE RECORDS SUMMARY | 2020-06-18 14:34 | XMS REPORT ---
Author Author Sanjuanita Sanchez [facility] Address [address] [place] [address] Care Team Providers Care Running Rigger Name Role Phone MARIA DE JESUS Sanchez Unavailable PROBLEMS Type Condition ICD9-CM Code [id number] Code Onset Dates Condition S tatus SNOMED Code Problem Hypertension I10 Active 2431043 3 Problem Hyperlipidemia E78.5 Active 15023 004 Problem Coronary artery disease I25.10 Active 85273587 Problem Low back pain M54.5 Active 512936 009 Problem Other chronic pain G89.29 Active 8 2595538 Problem Ventral hernia without obstruction or gangrene K43 .9 Active 591875536 Problem Type 2 diabetes mellitus wit hout complication, without long-term current use of insulin E11.9 Active 232225210 Problem Anxiety F41.9 Active 02365749 Problem Peripheral vascular disease I73.9 Ac tive 849054988 Problem Insomnia G47.00 Active 072575857 Problem Microcytic anemia D50.9 Active 23 4813910 Problem Pharyngeal dysphagia R13.13 Active 71799614395463 Problem Other iron deficiency anemia D50.8 A ctive 32324809 Problem Reactive depression F32.9 Active 43111642 Problem Paroxysmal atrial fibrillation I48.0 Active 691898407 Problem 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 Active 29721048 Problem Encounter for suprapubic catheter care Z43.5 Active 862290491 Problem Neurogenic bladder N31.9 Active 3 [id number] ALLERGIES No Information ENCOUNTERS Encounter Location Date Diagnosis [facility] [address] [id number] [address] [place] [id number] May, [facility] [address] [id number] [address] [place] [address] May, Strain of right shoulder, scherer bsequent encounter S46.911D and Anxiety F41.9 [facility] [address] [id number] [address] [place] [phone] 17 Apr, 2020 Anxiety F41.9 and Strain of right shoulder, subsequent encounter S46.911D [facility] [address] [id number] [address] [place] [address] 04 Apr, 2020 [facility] [address] [id number] [address] [place] [address] March, [facility] [address] [id number] [address] [place] [address] March, Anxiety F41.9 and Strain of right shoulder, subsequent encounter S46.911D [facility] [address] [id number] [address] [place], [place] [address] Feb, Anxiety F41.9 and Strain of right shoulder, subsequent encounter S46.911D [facility] [address] [id number] [address] [place] [address] Jan, Anxiety F41.9 and Strain of right shoulder, subsequent encounter S46.911D [facility] [address] [id number] [address] [place] [address] Jan, [facility] [address] [facility] [address] [address] [place] [id number] Jan, Neurogenic bladder N31.9 [facility] [address] [id number] [address] [place] [address] Dec, [facility] [address] [id number] [address] [place] [address] Dec, [facility] [address] [id number] [address] [place] [address] 24 Dec, 2019 Anxiety F41.9 and Strain of right shoulder, subsequent encounter S46.911D [facility] [address] [id number] [address] [place] [phone] 10 Dec, 2019 Other iron deficiency anemia D50.8 [facility] [address] [id number] [address] [place] [address] Dec, Via [facility] [employer] [facility] [address] [place] [id number] Dec, Encounter for suprapubic catheter care Z 43.5 and Microcytic anemia D50.9 [facility] [address] [id number] [address] [place] [address] Dec, [facility] [address] [id number] [address] [place] [address] Nov, Anxiety F41.9 and Strain of right shoulder, subsequent encounter S46.911D [facility] [address] [id number] [address] [place] [address] Nov, Hypertension I10 Via [facility] [employer] [facility] [address] [place] [id number] Nov, Pneumonia of both lungs due to infectiou s organism, unspecified part of lung J18.9 and Suprapubic catheter Z93.59 [facility] [address] [id number] [address] [place] [address] Nov, Hypertension I10 and Reactiv e depression F32.9 [facility] [address] [id number] [address] [place] [address] Oct, Strain of right shoulder, scherer bsequent encounter S46.911D and Anxiety F41.9 [facility] [address] [id number] [address] [place] [address] Oct, Via [employer] [facility] [address] [place] [id number] Oct, Suprapubic catheter Z93.59 and Candidias is, intertriginous B37.2 [place] [address] [id number] [address] [place] [address] Oct, Suprapubic catheter Z93.59 [place] [address] [id number] [address] [place] [address] Oct, Anxiety F41.9 and Strain of right shoulder, subsequent encounter S46.911D [facility] [address] [id number] [address] [place] [address] Sep, [facility] [address] [id number] [address] [place] [address] Sep, [facility] [address] [id number] [address] [place] [address] Sep, Via [facility] [address] [place] [id number] Sep, Suprapubic catheter Z93.59 [facility] [address] [id number] [address] [place] [address] Sep, Anxiety F41.9 and Strain of right shoulder, subsequent encounter S46.911D [facility] [address] [id number] [address] [place] [address] Aug, [facility] [address] [id number] [address] [place] [address] Aug, [facility] [address] [id number] [address] [place] [address] Aug, Anxiety F41.9 and Strain of right shoulder, subsequent encounter S46.911D Via [facility] [address] [place] [id number] Aug, Suprapubic catheter Z93.59 [facility] [address] [id number] [address] [place] [address] Jul, Strain of right shoulder, scherer bsequent encounter S46.911D and Anxiety F41.9 [facility] [address] [id number] [address] [place] [address] Jul, Anxiety F41.9 [facility] [address] [id number] [address] [place] [address] Jun, [facility] [address] [id number] [address] [place] [address] Jun, [facility] [address] [id number] [address] [place] [address] Jun, [place] [address] [id number] [address] [place] [address] Jun, Strain of right shoulder, scherer bsequent encounter S46.911D [facility] [address] [id number] [address] [place] [address] Jun, Strain of right shoulder, scherer bsequent encounter S46.911D [facility] [address] [id number] [address] [place] [address] Jun, Anxiety F41.9 Via [facility] [employer] [address] [place] [id number] Jun, Neurogenic bladder N31.9 and Anxiety F41 .9 Via [facility] [employer] [address] [place] [id number] May, Anxiety F41.9 [place] [address] [id number] [address] [place] [address] May, Dysuria R30.0 [place] [address] [id number] [address] [place] [address] May, Strain of right shoulder, scherer bsequent encounter S46.911D and Anxiety F41.9 [place] [address] [id number] [address] [place] [address] Apr, Via [facility] [employer] [address] [place] [id number] Apr, Strain of right shoulder, subsequent enc ounter S46.911D [place] [address] [id number] [address] [place] [address] Apr, Strain of right shoulder, scherer bsequent encounter S46.911D and Anxiety F41.9 [facility] [employer] [address] [place] [id number] Apr, Type 2 diabetes mellitus without complic ation, without long-term current use of insulin E11.9 and Neurogenic bladder N31.9 Via [employer] [address] [place] [id number] Apr, Strain of right shoulder, subsequent enc ounter S46.911D ; History of GI bleed Z87.19 ; Neurogenic bladder N31.9 and Reactive depression F32.9 [facility] [address] [id number] [address] [place] [address] 10 Apr, 2019 Acute pain of left shoulder M25.512 [facility] [address] [id number] [address] [place] [address] Apr, 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 [address] [id number] [address] [place] [address] March, Via [employer] [address] [place] [id number] March, Bronchitis J40 [facility] [address] [id number] [address] [place] [address] March, Cough R05 [facility] [address] [id number] [address] [place] [address] March, Other chronic pain G89.29 [facility] [address] [id number] [address] [place] [address] March, Anxiety F41.9 [facility] [address] [id number] [address] [place] [address] March, [facility] [address] [id number] [address] [place] [address] Feb, Other chronic pain G89.29 [facility] [address] [id number] [address] [place] [address] Feb, Anxiety F41.9 [facility] [address] [id number] [address] [place] [address] Feb, Other chronic pain G89.29 Via [facility] [address] [place] [id number] Feb, Neurogenic bladder N31.9 and Suprapubic catheter Z93.59 [facility] [address] [id number] [address] [place] [address] Jan, Anxiety F41.9 [facility] [address] [id number] [address] [place] [address] Dec, Anxiety F41.9 [facility] [address] [id number] [address] [place] [address] Dec, Other chronic pain G89.29 an d Anxiety F41.9 [facility] [address] [id number] [address] [place] [address] Dec, Via [employer] [address] [place] [id number] Dec, Neurogenic bladder N31.9 and Suprapubic catheter Z93.59 [facility] [address] [id number] [address] [place] [address] Nov, Other chronic pain G89.29 an d Anxiety F41.9 [facility] [address] [id number] [address] [place] [address] Nov, Via [employer] [address] [place] [id number] Nov, Suprapubic catheter Z93.59 [facility] [address] [id number] [address] [place] [address] Oct, Other chronic pain G89.29 an d Anxiety F41.9 [facility] [address] [id number] [address] [place] [address] Oct, [facility] [address] [id number] [address] [place] [address] Oct, Suprapubic catheter Z93.59 [facility] [address] [id number] [address] [place] [address] Oct, Via [employer] [address] [place] [id number] Oct, [facility] [address] [id number] [address] [place] [address] Oct, Anxiety F41.9 [facility] [address] [id number] [address] [place] [address] Oct, Anxiety F41.9 Via [employer] [address] [place] [id number] Oct, Other chronic pain G89.29 [facility] [address] [id number] [address] [place] [address] Sep, Other chronic pain G89.29 Via [employer] [address] [place] [id number] Sep, Suprapubic catheter Z93.59 and Cervicalg ia M54.2 [facility] [address] [id number] [address] [place] [address] Sep, [facility] [address] [id number] [address] [place] [address] Sep, [facility] [address] [id number] [address] [place] [address] Sep, Via [employer] [address] [place] [id number] Aug, Cystitis N30.90 [facility] [address] [id number] [address] [place] [address] Aug, [facility] [address] [id number] [address] [place] [address] Aug, Other chronic pain G89.29 [facility] [address] [id number] [address] [place] [address] Aug, Via [employer] [address] [place] [id number] Aug, Encounter for suprapubic catheter care Z 43.5 [facility] [address] [id number] [address] [place] [address] Jul, Via [employer] [address] [place] [id number] Jul, [facility] [address] [id number] [address] [place] [address] Jul, Other chronic pain G89.29 [facility] [address] [id number] [address] [place] [address] Jul, [facility] [address] [id number] [address] [place] [address] Jul, Via [employer] [address] [place] [id number] Jun, 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 [facility] [address] [id number] [address] [place] [address] Jun, Other chronic pain G89.29 [facility] [address] [id number] [address] [place] [address] Jun, Via [employer] [address] [place] [id number] May, Anxiety F41.9 ; Type 2 diabetes mellitus without complication, without long-term current use of insulin E11.9 ; Hypertension I10 ; Low back pain M54.5 ; Paroxysmal atrial fibrillation I48.0 and 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 [facility] [address] [id number] [address] [place] [address] May, Other chronic pain G89.29 Via [employer] [address] [place] [id number] May, Low back pain M54.5 [facility] [address] [id number] [address] [place] [address] May, [facility] [address] [id number] [address] [place] [address] Apr, Other chronic pain G89.29 [facility] [address] [id number] [address] [place] [address] Apr, [facility] [address] [id number] [address] [place] [address] Apr, Via [employer] [address] [place] [id number] Apr, Closed compression fracture of L3 lumbar vertebra with routine healing, subsequent encounter S32.030D [facility] [employer] [address] [place] [id number] Apr, Low back pain M54.5 [facility] [employer] [address] [place] [id number] Apr, Coccydynia M53.3 [facility] [address] [id number] [address] [place] [address] March, [facility] [address] [id number] [address] [place] [address] March, Other chronic pain G89.29 [facility] [address] [id number] [address] [place] [address] March, [facility] [address] [id number] [address] [place] [address] March, [facility] [address] [id number] [address] [place] [address] Feb, [facility] [address] [id number] [address] [place] [address] Feb, Other chronic pain G89.29 Via [employer] [address] [place] [id number] Feb, Other chronic pain G89.[address] [facility] [address] [id number] [address] [place] [address] Feb, [facility] [address] [id number] [address] [place] [address] Jan, [facility] [address] [id number] [address] [place] [address] Jan, [facility] [address] [id number] [address] [place] [address] Jan, [facility] [address] [id number] [address] [place] [address] Jan, 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 [address] [id number] [address] [place] [address] Nov, [facility] [address] [id number] [place] [id number] Nov, Anxiety F41.9 Via [employer] [facility] [address] [place] [id number] Nov, Status post surgery Z98.890 ; Confused R 41.0 ; Anxiety F41.9 and Other chronic pain G89.29 [facility] [address] [id number] [place] [id number] Nov, Other chronic pain G89.29 [facility] [address] [id number] [address] [place] [address] Oct, [facility] [address] [id number] [place] [id number] Oct, Other chronic pain G89.29 [facility] [address] [id number] [address] [place] [address], [place] [address] Oct, Anxiety F41.9 [facility] [address] [id number] [place] [id number] Sep, Other chronic pain G89.29 [facility] [address] [id number] [place] [id number] Sep, Via [employer] [address] [place] [id number] Aug, Dysuria R30.[address] [facility] [address] [id number] [address] [place] [address], [place] [address] Aug, [facility] [address] [id number] [place] [id number] Aug, Other chronic pain G89.29 [facility] [address] [id number] [address] [place] [address], [place] [address] Jul, Other chronic pain G89.29 [facility] [address] [id number] [place] [id number] Jun, [facility] [address] [id number] [place] [id number] Jun, Other chronic pain G89.29 [facility] [address] [id number] [address] [place] [address], [place] [address] Jun, [facility] [address] [id number] [address] [place] [address] May, Other chronic pain G89.29 [facility] [address] [id number] [address] [place] [address], [place] [address] Apr, Other chronic pain G89.29 [facility] [employer] [address] [place] [id number] Apr, Reactive depression F32.9 and Pharyngeal dysphagia R13.13 [facility] [address] [id number] [address] [place] [address] Apr, Urinary tract infection with out hematuria, site unspecified N39.0 [facility] [address] [id number] [address] [place] [address] March, Other chronic pain G89.29 [facility] [address] [id number] [address] [place] [address] Feb, Other chronic pain G89.29 [facility] [address] [id number] [address] [place] [address] Feb, [facility] [address] [place] [id number] [place] [id number] Feb, [facility] [address] [place] [id number] Feb, Dysuria R30.0 and Ventral hernia without obstruction or gangrene K43.9 [facility] [address] [id number] [address] [place] [address] Jan, Other chronic pain G89.29 [facility] [address] [place] [id number] [place] [id number] Dec, Other chronic pain G89.29 [facility] [address] [id number] [address] [place] [phone] Nov, Other chronic pain G89.29 [facility] [address] [place] [id number] Nov, Lymphadenitis I88.9 [facility] [address] [id number] [address] [place] [phone] Nov, Other chronic pain G89.29 [facility] [address] [id number] [address] [place] [phone] Nov, [facility] [address] [id number] [id number] Nov, Other chronic pain G89.29 [facility] [address] [place] [id number] Oct, Low back pain M54.5 ; Hypertension I10 a nd Type 2 diabetes mellitus without complication, without long-term current use of insulin E11.9 [facility] [address] [id number] [address] [place] [phone] Oct, [facility] [address] [id number] [address] [place] [phone] Oct, [facility] [address] [id number] [address] [place] [phone] Oct, [facility] [address] [id number] [address] [place] [phone] Oct, [facility] [address] [id number] [address] [place] [phone] Sep, [facility] [address] [id number] [address] [place] [phone] Sep, [facility] [address] [id number] [address] [place] [phone] Aug, Other chronic pain G89.29 [facility] [address] [id number] [address] [place] [phone] Jul, [facility] [address] [id number] [address] [place] [phone] Jul, [facility] [address] [id number] [address] [place] [phone] Jul, [facility] [address] [id number] [address] [place] [phone] Jun, [facility] [address] [id number] [address] [place] [phone] Jun, [facility] [address] [place] [id number] Jun, Low back pain M54.5 ; Other chronic pain G89.29 and Coronary artery disease I25.10 [facility] [address] [id number] [address] [place] [phone] 08 Jun, 2016 [facility] [address] [id number] [address] [place] [phone] May, [facility] [address] [id number] [address] [place] [id number] 15 May, 2016 [facility] [address] [id number] [address] [place] [address] May, Other chronic pain G89.29 [facility] [address] [id number] [address] [place] [address] May, [facility] [address] [id number] [address] [place] [address] Apr, [facility] [address] [id number] [address] [place] [id number] 17 Apr, 2016 Acute cystitis without hemat uria N30.00 [facility] [address] [id number] [address] [place] [address] 16 Apr, 2016 Acute cystitis without hemat uria N30.00 ; Coronary artery disease I25.10 ; Low back pain M54.5 and Other chronic pain G89.29 [facility] [address] [id number] [address] [place] [address] Apr, Other chronic pain G89.29 [facility] [address] [id number] [address] [place] [address] March, Other chronic pain G89.29 [facility] [address] [id number] [address] [place] [address] 18 Feb, 2016 [facility] [address] [id number] [address] [place] [id number] 15 Feb, [address] [facility] [address] [id number] [address] [place] [phone] Feb, [facility] [address] [id number] [address] [place] [phone] Jan, [facility] [address] [id number] [address] [place] [address] Jan, [facility] [address] [id number] [address] [place] [address] Jan, Other chronic pain G89.29 [facility] [address] [id number] [address] [place] [address] Jan, Hypertension I10 ; Coronary artery disease I25.[address] [facility] [address] [id number] [address] [place] [phone] Jan, [facility] [address] [id number] [address] [place] [address] Dec, Right hip pain M25.551 [facility] [address] [id number] [address] [place] [phone] Dec, [facility] [address] [id number] [address] [place] [phone] Dec, [facility] [address] [id number] [address] [place] [address] Dec, [facility] [address] [id number] [address] [place] [address] Dec, Other chronic pain G89.29 [facility] [address] [id number] [address] [place] [phone] Dec, [facility] [address] [id number] [address] [place] [id number] Nov, [facility] [address] [id number] [address] [place] [address] Nov, Other chronic pain G89.29 [facility] [address] [id number] [address] [place] [address] Nov, Right hip pain M25.551 and C oronary artery disease I25.10 [facility] [address] [id number] [address] [place] [address] Nov, Other chronic pain G89.29 [facility] [address] [id number] [address] [place] [phone] Oct, [facility] [address] [id number] [address] [place] [phone] Oct, [facility] [address] [id number] [address] [place] [address] Sep, [facility] [address] [id number] [address] [place] [phone] Sep, [facility] [address] [id number] [address] [place] [address] Aug, [facility] [address] [id number] [address] [place] [address] Aug, Hypertension I10 ; Coronary artery disease I25.[address] [facility] [address] [id number] [address] [place] [phone] Jun, [facility] [address] [id number] [address] [place] [address] Jun, Essential hypertension, jayson gn 401.1 ; Other chronic pain 338.29 and Chronic airway obstruction, not elsewhere classified 496 [facility] [address] [id number] [address] [place] [phone] Jun, [facility] [address] [id number] [address] [place] [phone] Jun, [facility] [address] [id number] [address] [place] [phone] Jun, [facility] [address] [id number] [address] [place] [phone] May, [facility] [address] [id number] [address] [place] [address] [place] [address] May, [facility] [address] [id number] [address] [place] [address], [place] [address] Apr, [facility] [address] [id number] [address] [place] [address], [place] [address] Apr, [facility] [address] [id number] [address] [place] [address], [place] [address] Apr, [facility] [address] [id number] [address] [place] [address], [place] [address] March, [facility] [address] [id number] [address] [place] [address], [place] [address] March, [facility] [address] [id number] [address] [place] [address], [place] [address] March, [facility] [address] [id number] [address] [place] [address], [place] [address] March, [facility] [address] [id number] [address] [place] [address], [place] [address] March, Sialadenitis 527.2 [facility] [address] [id number] [address] [place] [address], [place] [address] Feb, [facility] [address] [id number] [address] [place] [address], [place] [address] Feb, [facility] [address] [id number] [address] [place] [address], [place] [address] Feb, [facility] [address] [id number] [address] [place] [address], [place] [address] Feb, [facility] [address] [id number] [address] [place] [address], [place] [address] Feb, [facility] [address] [id number] [address] [place] [address], [place] [address] Jan, [facility] [address] [id number] [address] [place] [address], [place] [address] Jan, [facility] [address] [id number] [address] [place] [address], [place] [address] Jan, [facility] [address] [id number] [address] [place] [address], [place] [address] Jan, [facility] [address] [id number] [address] [place] [address], [place] [address] Jan, [facility] [address] [id number] [address] [place] [address], [place] [address] Jan, [facility] [address] [id number] [address] [place] [address], [place] [address] Dec, [facility] [address] [id number] [address] [place] [address], [place] [address] Dec, 2014 [facility] [address] [id number] [address] [place] [address], [place] [address] Dec, [facility] [address] [id number] [address] [place] [address], [place] [address] Dec, 2014 [facility] [address] [id number] [address] [place] [address], [place] [address] Dec, [facility] [address] [id number] [address] [place] [address], [place] [address] Dec, [facility] [address] [id number] [address] [place] [address], [place] [address] Nov, [facility] [address] [id number] [address] [place] [address], [place] [address] Nov, [facility] [address] [id number] [address] [place] [address], [place] [address] Nov, [facility] [address] [id number] [address] [place] [address], [place] [address] Nov, [facility] [address] [id number] [address] [place] [address], [place] [address] Nov, [facility] [address] [id number] [address] [place] [address], [place] [address] Nov, [facility] [address] [id number] [address] [place] [address], [place] [address] Nov, [facility] [address] [id number] [address] [place] [address], [place] [address] Nov, [facility] [address] [id number] [address] [place] [address], [place] [address] Nov, [facility] [address] [id number] [address] [place] [address], [place] [address] Nov, [facility] [address] [id number] [address] [place] [address], [place] [address] Nov, [facility] [address] [id number] [address] [place] [address], [place] [address] Nov, [facility] [address] [id number] [address] [place] [address], [place] [address] Nov, [facility] [address] [id number] [address] [place] [address], [place] [address] Nov, [facility] [address] [id number] [address] [place] [address], [place] [address] Oct, [facility] [address] [id number] [address] [place] [address], [place] [address] Oct, [facility] [address] [id number] [address] [place] [address], [place] [address] Oct, [facility] [address] [id number] [address] [place] [address], [place] [address] 18 Oct, 2014 [facility] [address] [id number] [address] [place] [address], [place] [address] 18 Oct, 2014 [facility] [address] [id number] [address] [place] [address], [place] [address] 17 Oct, 2014 [facility] [address] [id number] [address] [place] [address], [place] [address] Oct, [facility] [address] [id number] [address] [place] [address], [place] [address] Oct, [facility] [address] [id number] [address] [place] [address], [place] [address] Oct, [facility] [address] [id number] [address] [place] [address], [place] [address] Sep, [facility] [address] [id number] [address] [place] [address], [place] [address] Sep, [facility] [address] [id number] [address] [place] [address], [place] [address] Sep, [facility] [address] [id number] [address] [place] [address], [place] [address] Sep, [facility] [address] [id number] [address] [place] [address], [place] [address] Sep, [facility] [address] [id number] [address] [place] [address], [place] [address] Sep, [facility] [address] [id number] [address] [place] [address], [place] [address] Sep, [facility] [address] [id number] [address] [place] [address], [place] [address] Sep, [facility] [address] [id number] [address] [place] [address], [place] [address] Sep, [facility] [address] [id number] [address] [place] [address], [place] [address] Sep, [facility] [address] [id number] [address] [place] [address], [place] [address] Sep, [facility] [address] [id number] [address] [place] [address], [place] [address] Sep, [facility] [address] [id number] [address] [place] [address], [place] [address] Aug, [facility] [address] [id number] [address] [place] [address] 30 Aug, 2014 [facility] [address] [id number] [address] [place] [address], [place] [address] 29 Aug, 2014 [facility] [address] [id number] [address] [place] [address], [place] [address] 29 Aug, 2014 [facility] [address] [id number] [address] [place] [address], [place] [address] 28 Aug, 2014 [facility] [address] [id number] [address] [place] [address], [place] [address] 28 Aug, 2014 [facility] [address] [id number] [address] [place] [address], [place] [address] 17 Aug, 2014 [facility] [address] [id number] [address] [place] [address], [place] [address] 17 Aug, 2014 [facility] [address] [id number] [address] [place] [address], [place] [address] 30 Jul, 2013 [facility] [address] [id number] [address] [place] [address], [place] [address] 30 Sep, 2013 [facility] [address] [id number] [address] [place] [address], [place] [address] 30 Sep, 2013 [facility] [address] [id number] [address] [place] [address], [place] [address] 30 Sep, 2013 [facility] [address] [id number] [address] [place] [address], [place] [address] 25 Sep, 2013 [facility] [address] [id number] [address] [place] [address] 25 Sep, 2013 [facility] [address] [id number] [address] [place] [address], [place] [address] 15 Sep, 2013 [facility] [address] [id number] [address] [place] [address], [place] [address] 15 Sep, 2013 [facility] [address] [id number] [address] [place] [address], [place] [address] 11 Jul, 2013 [facility] [address] [id number] [facility] [place] [place] [address] Jul, [facility] [address] [id number] [facility] [place] [address] Jun, [facility] [address] [id number] [facility] [place] [place] [address] Jun, [facility] [address] [id number] [address] [place] [address], [place] [address] Jun, [facility] [address] [id number] [address] [place] [address], [place] [address] Jun, [facility] [address] [id number] [address] [place] [address], [place] [address] Jun, [facility] [address] [id number] [address] [place] [address], [place] [address] Jun, [facility] [address] [id number] [address] [place] [address], [place] [address] Jun, [facility] [address] [id number] [address] [place] [address], [place] [address] Jun, [facility] [address] [id number] [address] [place] [address], [place] [address] Jun, [facility] [address] [id number] [address] [place] [address], [place] [address] Jun, [facility] [address] [id number] [address] [place] [address], [place] [address] Jun, [facility] [address] [id number] [address] [place] [address], [place] [address] Jun, [facility] [address] [id number] [address] [place] [address], [place] [address] Jun, [facility] [address] [id number] [address] [place] [address], [place] [address] Jun, [facility] [address] [id number] [address] [place] [address], [place] [address] Jun, [facility] [address] [id number] [facility] [place] [place] [address] Jun, [facility] [address] [id number] [facility] [place] [address] Jun, [facility] [address] [id number] [facility] [place] [place] [address] Jun, [facility] [address] [id number] [address] [place] [address], [place] [address] Jun, [facility] [address] [id number] [address] [place] [address], [place] [address] Jun, [facility] [address] [id number] [address] [place] [address], [place] [address] Jun, [facility] [address] [id number] [address] [place] [address], [place] [address] Jun, [facility] [address] [id number] [address] [place] [address], [place] [address] May, [facility] [address] [id number] [address] [place] [address], [place] [address] May, [facility] [address] [id number] [address] [place] [address], [place] [address] May, [facility] [address] [id number] [address] [place] [address], [place] [address] May, [facility] [address] [id number] [address] [place] [address], [place] [address] May, [facility] [address] [id number] [address] [place] [address], [place] [address] May, [facility] [address] [id number] [address] [place] [address], [place] [address] May, [facility] [address] [id number] [address] [place] [address], [place] [address] May, [facility] [address] [id number] [address] [place] [address], [place] [address] May, [facility] [address] [id number] [facility] [place] [place] [address] May, [facility] [address] [id number] [address] [place] [address], [place] [address] May, [facility] [address] [id number] [address] [place] [address], [place] [address] May, [facility] [address] [id number] [address] [place] [address], [place] [address] May, [facility] [address] [id number] [address] [place] [address], [place] [address] Apr, [facility] [address] [id number] [address] [place] [address], [place] [address] Apr, [facility] [address] [id number] [address] [place] [address], [place] [address] Apr, [facility] [address] [id number] [address] [place] [address], [place] [address] Apr, [facility] [address] [id number] [address] [place] [address], [place] [address] Apr, [facility] [address] [id number] [address] [place] [address], [place] [address] Apr, [facility] [address] [id number] [address] [place] [address], [place] [address] Apr, [facility] [address] [id number] [address] [place] [address], [place] [address] Apr, [facility] [address] [id number] [address] [place] [address], [place] [address] Apr, [facility] [address] [id number] [address] [place] [address], [place] [address] March, [facility] [address] [id number] [address] [place] [address], [place] [address] March, [facility] [address] [id number] [facility] [place] [place] [address] March, [facility] [address] [id number] [address] [place] [address], [place] [address] March, [facility] [address] [id number] [address] [place] [address], [place] [address] March, [facility] [address] [id number] [address] [place] [address], [place] [address] March, [facility] [address] [id number] [address] [place] [address], [place] [address] March, [facility] [address] [id number] [address] [place] [address], [place] [address] March, [facility] [address] [id number] [address] [place] [address], [place] [address] March, [facility] [address] [id number] [address] [place] [address], [place] [address] March, [facility] [address] [id number] [address] [place] [address], [place] [address] March, [facility] [address] [id number] [address] [place] [address], [place] [address] March, [facility] [address] [id number] [address] [place] [address], [place] [address] March, [facility] [address] [id number] [address] [place] [address], [place] [address] March, [facility] [address] [id number] [address] [place] [address], [place] [address] March, [facility] [address] [id number] [address] [place] [address], [place] [address] March, [facility] [address] [id number] [address] [place] [address], [place] [address] March, [facility] [address] [id number] [address] [place] [address], [place] [address] March, [facility] [address] [id number] [facility] [place] [place] [address] March, [facility] [address] [id number] [address] [place] [address], [place] [address] March, [facility] [address] [id number] [address] [place] [address], [place] [address] Feb, [facility] [address] [id number] [address] [place] [address], [place] [address] Feb, [facility] [address] [id number] [address] [place] [address], [place] [address] Feb, [facility] [address] [id number] [address] [place] [address], [place] [address] Feb, [facility] [address] [id number] [address] [place] [address], [place] [address] Feb, [facility] [address] [id number] [address] [place] [address], [place] [address] Feb, [facility] [address] [id number] [address] [place] [address], [place] [address] Feb, [facility] [address] [id number] [address] [place] [address], [place] [address] Feb, [facility] [address] [id number] [address] [place] [address], [place] [address] Jan, [facility] [place] [address] [id number] [address] [place] [address], [place] [address] Jan, [facility] [place] [address] [id number] [address] [place] [address], [place] [address] Jan, [facility] [place] [address] [id number] [address] [place] [address], [place] [address] 24 Jan, 2014 [facility] [place] [facility] [address] [id number] [address] [place] [address], [place] [address] 13 Jan, 2014 [facility] [address] [id number] [address] [place] [address] 13 Jan, 2014 [facility] [address] [id number] [address] [place] [address], [place] [address] Jan, [facility] [place] [facility] [address] [id number] [address] [place] [address], [place] [address] Jan, [facility] [address] [id number] [address] [place] [address], [place] [address] Jan, [facility] [place] [facility] [address] [id number] [address] [place] [address], [place] [address] Jan, [facility] [address] [id number] [address] [place] [address], [place] [address] Dec, [facility] [address] [id number] [address] [place] [address], [place] [address] Dec, [facility] [address] [id number] [address] [place] [address], [place] [address] Dec, [facility] [address] [id number] [address] [place] [address], [place] [address] Dec, [facility] [place] [facility] [address] [id number] [address] [place] [address], [place] [address] Dec, [facility] [address] [id number] [address] [place] [address], [place] [address] Dec, [facility] [place] [facility] [address] [id number] [address] [place] [address], [place] [address] Dec, [facility] [address] [id number] [address] [place] [address], [place] [address] Dec, [facility] [place] [facility] [address] [id number] [address] [place] [address], [place] [address] Nov, [facility] [place] [facility] [address] [id number] [address] [place] [address], [place] [address] Nov, [facility] [address] [id number] [address] [place] [address], [place] [address] Nov, [facility] [address] [id number] [address] [place] [address], [place] [address] Nov, [facility] [address] [id number] [address] [place] [address], [place] [address] Nov, [facility] [address] [id number] [address] [place] [address], [place] [address] Nov, [facility] [address] [id number] [address] [place] [address], [place] [address] Nov, [facility] [address] [id number] [address] [place] [address], [place] [address] Nov, [facility] [address] [id number] [address] [place] [address], [place] [address] Nov, [facility] [address] [id number] [address] [place] [address], [place] [address] Nov, [facility] [address] [id number] [address] [place] [address], [place] [address] Nov, [facility] [address] [id number] [address] [place] [address], [place] [address] Nov, [facility] [address] [id number] [address] [place] [address], [place] [address] Nov, [facility] [address] [id number] [address] [place] [address], [place] [address] Oct, [facility] [address] [id number] [address] [place] [address], [place] [address] Oct, [facility] [address] [id number] [address] [place] [address], [place] [address] Oct, [facility] [address] [id number] [address] [place] [address], [place] [address] Oct, [facility] [address] [id number] [address] [place] [address], [place] [address] Oct, [facility] [address] [id number] [address] [place] [address], [place] [address] 23 Oct, 2013 [facility] [address] [id number] [address] [place] [address], [place] [address] 18 Oct, 2013 [facility] [address] [id number] [address] [place] [address], [place] [address] 18 Oct, 2013 [facility] [address] [id number] [address] [place] [address], [place] [address] 17 Oct, 2013 [facility] [address] [id number] [address] [place] [address], [place] [address] 17 Oct, 2013 [facility] [address] [id number] [address] [place] [address], [place] [address] Oct, [facility] [address] [id number] [address] [place] [address], [place] [address] Oct, [facility] [address] [id number] [address] [place] [address], [place] [address] Oct, [facility] [address] [id number] [address] [place] [address], [place] [address] 02 Oct, 2013 [facility] [address] [id number] [address] [place] [address], [place] [address] 14 Sep, 2013 [facility] [address] [id number] [address] [place] [address], [place] [address] 14 Sep, 2013 [facility] [address] [id number] [address] [place] [address], [place] [address] 05 Sep, 2013 [facility] [address] [id number] [address] [place] [address], [place] [address] 05 Sep, 2013 [facility] [address] [id number] [address] [place] [address], [place] [address] 04 Sep, 2013 [facility] [address] [id number] [address] [place] [address], [place] [address] 04 Sep, 2013 [facility] [address] [id number] [address] [place] [address], [place] [address] Sep, [facility] [address] [id number] [address] [place] [address], [place] [address] Sep, [facility] [address] [id number] [address] [place] [address], [place] [address] Sep, [facility] [address] [id number] [address] [place] [address], [place] [address] Sep, [facility] [address] [id number] [address] [place] [address], [place] [address] Aug, [facility] [address] [id number] [address] [place] [address], [place] [address] Aug, [facility] [address] [id number] [address] [place] [address], [place] [address] Aug, [facility] [address] [id number] [address] [place] [address], [place] [address] Aug, [facility] [address] [id number] [address] [place] [address], [place] [address] Aug, [facility] [address] [id number] [address] [place] [address], [place] [address] Aug, [facility] [address] [id number] [address] [place] [address] Aug, [facility] [address] [id number] [address] [place] [address] Aug, [facility] [address] [id number] [address] [place] [address] Aug, [facility] [address] [id number] [address] [place] [address], [place] [address] Aug, [facility] [address] [id number] [address] [place] [address] Aug, [facility] [address] [id number] [address] [place] [address] Aug, [facility] [address] [id number] [address] [place] [address] 18 Aug, 2013 [facility] [address] [id number] [address] [place] [address], [place] [address] 18 Aug, 2013 [facility] [address] [id number] [address] [place] [address], [place] [address] 17 Aug, 2013 [facility] [address] [id number] [address] [place] [address], [place] [address] 14 Aug, 2013 [facility] [address] [id number] [address] [place] [address], [place] [address] 14 Aug, 2013 [facility] [address] [id number] [address] [place] [address], [place] [address] 01 Aug, 2013 [facility] [address] [id number] [address] [place] [address], [place] [address] 20 Jul, 2013 [facility] [address] [id number] [address] [place] [address], [place] [address] 19 Jul, 2013 [facility] [address] [id number] [address] [place] [address], [place] [address] 18 Jul, 2013 [facility] [address] [id number] [address] [place] [address], [place] [address] 11 Jul, 2013 [facility] [address] [id number] [address] [place] [address], [place] [address] 11 Jul, 2013 [facility] [address] [id number] [address] [place] [address], [place] [address] 28 Jun, 2013 [facility] [address] [id number] [address] [place] [address], [place] [address] 23 Jun, 2013 [facility] [address] [id number] [address] [place] [address], [place] [address] 23 Jun, 2013 [facility] [address] [id number] [address] [place] [address], [place] [address] 15 Jun, 2013 [facility] [address] [id number] [address] [place] [address], [place] [address] 14 Jun, 2013 [facility] [address] [id number] [facility] [place] [place] [address] Jun, [facility] [address] [id number] [address] [place] [address], [place] [address] Jun, [facility] [address] [id number] [address] [place] [address], [place] [address] Jun, [facility] [address] [id number] [address] [place] [address], [place] [address] Jun, [facility] [address] [id number] [address] [place] [address], [place] [address] Jun, [facility] [address] [id number] [address] [place] [address], [place] [address] May, [facility] [address] [id number] [address] [place] [address], [place] [address] May, [facility] [address] [id number] [address] [place] [address], [place] [address] May, [facility] [address] [id number] [address] [place] [address], [place] [address] May, [facility] [address] [id number] [address] [place] [address], [place] [address] May, [facility] [address] [id number] [address] [place] [address], [place] [address] May, [facility] [address] [id number] [address] [place] [address], [place] [address] May, [facility] [address] [id number] [address] [place] [address], [place] [address] May, [facility] [address] [id number] [address] [place] [address], [place] [address] May, [facility] [address] [id number] [address] [place] [address], [place] [address] Apr, [facility] [address] [id number] [address] [place] [address], [place] [address] Apr, [facility] [address] [id number] [address] [place] [address], [place] [address] Apr, [facility] [address] [id number] [address] [place] [address], [place] [address] Apr, [facility] [address] [id number] [address] [place] [address], [place] [address] Apr, [facility] [address] [id number] [address] [place] [address], [place] [address] Apr, [facility] [address] [id number] [address] [place] [address], [place] [address] Apr, [facility] [address] [id number] [address] [place] [address], [place] [address] March, [facility] [address] [id number] [address] [place] [address], [place] [address] Feb, [facility] [address] [id number] [address] [place] [address], [place] [address] Feb, [facility] [address] [id number] [address] [place] [address], [place] [address] Feb, [facility] [address] [id number] [address] [place] [address], [place] [address] Jan, [facility] [address] [id number] [address] [place] [address], [place] [address] Jan, [facility] [address] [id number] [address] [place] [address], [place] [address] Jan, [facility] [address] [id number] [address] [place] [address], [place] [address] 14 Jan, 2013 [facility] [address] [id number] [address] [place] [address], [place] [address] 12 Jan, 2013 [facility] [address] [id number] [address] [place] [address], [place] [address] 08 Jan, 2013 [facility] [address] [id number] [address] [place] [address], [place] [address] 07 Jan, 2013 [facility] [address] [id number] [address] [place] [address], [place] [address] 04 Jan, 2013 [facility] [address] [id number] [address] [place] [address], [place] [address] 28 Dec, 2012 [facility] [address] [id number] [address] [place] [address], [place] [address] 25 Dec, 2012 [facility] [address] [id number] [address] [place] [address], [place] [address] 13 Dec, 2012 [facility] [address] [id number] [address] [place] [address], [place] [address] 11 Dec, 2012 [facility] [address] [id number] [address] [place] [address], [place] [address] 07 Dec, 2012 [facility] [address] [id number] [address] [place] [address], [place] [address] 06 Dec, 2012 [facility] [address] [id number] [address] [place] [address], [place] [address] 05 Dec, 2012 [facility] [address] [id number] [address] [place] [address], [place] [address] Nov, [facility] [address] [id number] [address] [place] [address], [place] [address] 24 Nov, 2012 [facility] [address] [id number] [address] [place] [address], [place] [address] 18 Nov, 2012 [facility] [address] [id number] [address] [place] [address], [place] [address] 15 Nov, 2012 [facility] [address] [id number] [address] [place] [address], [place] [address] 10 Nov, 2012 [facility] [address] [id number] [address] [place] [address], [place] [address] 10 Nov, 2012 [facility] [address] [id number] [address] [place] [address], [place] [address] Nov, [facility] [address] [id number] [address] [place] [address], [place] [address] Oct, [facility] [address] [id number] [address] [place] [address], [place] [address] Oct, [facility] [address] [id number] [address] [place] [address], [place] [address] Oct, [facility] [address] [id number] [address] [place] [address], [place] [address] Oct, [facility] [address] [id number] [address] [place] [address], [place] [address] Oct, [facility] [address] [id number] [address] [place] [address], [place] [address] Oct, [facility] [address] [id number] [address] [place] [address], [place] [address] Oct, [facility] [address] [id number] [address] [place] [address], [place] [address] Oct, [facility] [address] [id number] [address] [place] [address], [place] [address] Oct, [facility] [address] [id number] [address] [place] [address], [place] [address] Oct, [facility] [address] [id number] [address] [place] [address], [place] [address] Oct, [facility] [address] [id number] [address] [place] [address], [place] [address] Oct, [facility] [address] [id number] [address] [place] [address], [place] [address] Sep, [facility] [address] [id number] [address] [place] [address], [place] [address] Sep, [facility] [address] [id number] [address] [place] [address], [place] [address] Sep, [facility] [address] [id number] [address] [place] [address] Sep, [facility] [address] [id number] [address] [place] [address], [place] [address] Sep, [facility] [address] [id number] [address] [place] [address] Sep, [facility] [address] [id number] [address] [place] [address] Sep, [facility] [address] [id number] [address] [place] [address] Sep, [facility] [address] [id number] [address] [place] [address], [place] [address] Sep, [facility] [address] [id number] [address] [place] [address] Sep, [facility] [address] [id number] [address] [place] [address] Sep, [facility] [address] [id number] [address] [place] [address] Aug, [facility] [address] [id number] [address] [place] [address] Aug, [facility] [address] [id number] [address] [place] [address] Aug, [facility] [address] [id number] [address] [place] [address] Aug, [facility] [address] [id number] [address] [place] [address] Aug, [facility] [address] [id number] [address] [place] [address] Aug, [facility] [address] [id number] [address] [place] [address] Aug, [facility] [address] [id number] [address] [place] [address] Aug, [facility] [address] [id number] [facility] [place] [place] [address] Aug, [facility] [address] [id number] [address] [place] [address], [place] [address] Aug, [facility] [address] [id number] [address] [place] [address], [place] [address] Jul, [facility] [address] [id number] [address] [place] [address], [place] [address] Jul, [facility] [address] [id number] [address] [place] [address], [place] [address] Jul, [facility] [address] [id number] [address] [place] [address], [place] [address] Jul, [facility] [address] [id number] [address] [place] [address], [place] [address] Jun, [facility] [address] [id number] [address] [place] [address], [place] [address] Jun, [facility] [address] [id number] [address] [place] [address], [place] [address] Jun, [facility] [address] [id number] [address] [place] [address], [place] [address] Jun, [facility] [address] [id number] [address] [place] [address], [place] [address] Jun, [facility] [address] [id number] [address] [place] [address], [place] [address] Jun, [facility] [address] [id number] [address] [place] [address], [place] [address] Jun, [facility] [address] [id number] [address] [place] [address], [place] [address] May, [facility] [address] [id number] [address] [place] [address], [place] [address] May, [facility] [address] [id number] [address] [place] [address], [place] [address] May, [facility] [address] [id number] [address] [place] [address], [place] [address] May, [facility] [address] [id number] [address] [place] [address], [place] [address] May, [facility] [address] [id number] [address] [place] [address], [place] [address] Apr, [facility] [address] [id number] [address] [place] [address], [place] [address] Apr, [facility] [address] [id number] [address] [place] [address], [place] [address] Apr, [facility] [address] [id number] [address] [place] [address], [place] [address] Apr, [facility] [address] [id number] [address] [place] [address], [place] [address] Apr, [facility] [address] [id number] [address] [place] [address], [place] [address] March, [facility] [address] [id number] [address] [place] [address], [place] [address] March, [facility] [address] [id number] [address] [place] [address], [place] [address] March, [facility] [address] [id number] [address] [place] [address], [place] [address] March, [facility] [address] [id number] [address] [place] [address], [place] [address] March, [facility] [address] [id number] [address] [place] [address], [place] [address] March, [facility] [address] [id number] [address] [place] [address], [place] [address] March, [facility] [address] [id number] [address] [place] [address], [place] [address] March, [facility] [address] [id number] [address] [place] [address], [place] [address] March, [facility] [address] [id number] [address] [place] [address], [place] [address] March, [facility] [address] [id number] [address] [place] [address], [place] [address] 30 Feb, 2012 [facility] [address] [id number] [address] [place] [address], [place] [address] Feb, [facility] [address] [id number] [address] [place] [address], [place] [address] Feb, [facility] [address] [id number] [address] [place] [address], [place] [address] Feb, [facility] [address] [id number] [address] [place] [address], [place] [address] Feb, [facility] [address] [id number] [address] [place] [address], [place] [address] Feb, [facility] [address] [id number] [address] [place] [address], [place] [address] Feb, [facility] [address] [id number] [address] [place] [address], [place] [address] Feb, [facility] [address] [id number] [address] [place] [address], [place] [address] Feb, [facility] [address] [id number] [address] [place] [address], [place] [address] Jan, [facility] [address] [id number] [address] [place] [address], [place] [address] Jan, [facility] [address] [id number] [address] [place] [address], [place] [address] 05 Jan, 2012 [facility] [address] [id number] [address] [place] [address], [place] [address] Jan, [facility] [address] [id number] [address] [place] [address], [place] [address] Dec, [facility] [address] [id number] [address] [place] [phone] Dec, [facility] [address] [id number] [address] [place] [phone] Nov, [facility] [address] [id number] [address] [place] [phone] Nov, [facility] [address] [id number] [address] [place] [phone] Nov, [facility] [address] [id number] [address] [place] [id number] Nov, [facility] [address] [id number] [address] [place] [id number] Nov, [facility] [address] [id number] [address] [place] [id number] Oct, [facility] [address] [id number] [address] [place] [phone] Oct, [facility] [address] [id number] [address] [place] [id number] Oct, [facility] [address] [id number] [address] [place] [address] Oct, [facility] [address] [id number] [address] [place] [id number] Oct, [facility] [address] [id number] [address] [place] [id number] Oct, [facility] [address] [id number] [address] [place] [phone] Oct, [facility] [address] [id number] [address] [place] [phone] Oct, [facility] [address] [id number] [address] [place] [id number] Sep, IMMUNIZATIONS No Known Immunizations SOCIAL HISTORY [...] History No Surgical history information Hospitalization History [facility]- Urosepsis, ab d pain and fever, discharged 11/27/2017 11/26/2017 Hospitalization History [facility]- Went Unrepsonsive, Hit head 2017 Hospitalization History [facility]- Back Pain 05/05/ 8
--- OUTSIDE RECORDS SUMMARY | 2020-06-18 14:35 | XMS REPORT ---
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 Name Role Phone SHAHNAZ MARQUEZ Unavailable PROBLEMS Type Condition ICD9-CM Code [id number] Code Onset Dates Condition S tatus SNOMED Code Problem Hypertension I10 Active 1327502 3 Problem Hyperlipidemia E78.5 Active 94311 004 Problem Coronary artery disease I25.10 Active 53786167 Problem Low back pain M54.5 Active 398953 009 Problem Other chronic pain G89.29 Active 8 9517957 Problem Ventral hernia without obstruction or gangrene K43 .9 Active 380311544 Problem Type 2 diabetes mellitus wit hout complication, without long-term current use of insulin E11.9 Active 016820079 Problem Anxiety F41.9 Active 91869985 Problem Peripheral vascular disease I73.9 Ac tive 397123000 Problem Insomnia G47.00 Active 299574863 Problem Microcytic anemia D50.9 Active 23 3725453 Problem Pharyngeal dysphagia R13.13 Active 27011533971361 Problem Other iron deficiency anemia D50.8 A ctive 96583652 Problem Reactive depression F32.9 Active 09361387 Problem Paroxysmal atrial fibrillation I48.0 Active 806049308 Problem 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 Active 69962967 Problem Encounter for suprapubic catheter care Z43.5 Active 811482130 Problem Neurogenic bladder N31.9 Active 3 63152195 ALLERGIES Substance Reaction Event Type Date Status Bactrim DS hives Drug Allergy Feb, Active Hydrochlorothiazide 50 Mg Tablet hypokalemia Non Drug Allergy 02 2018 Active Lisinopril 20 Mg Tablet cough Non Drug Allergy Feb, Active Lyrica Unknown Drug Allergy Feb, Active ENCOUNTERS Encounter Location Date Diagnosis [facility] [address] [facility] [id number] [address] [place] [address] March, [facility] [address] [id number] [address] [place] [address] March, Anxiety F41.9 and Strain of right shoulder, subsequent encounter S46.911D [facility] [address] [id number] [address] [place], [place] [address] Feb, Anxiety F41.9 and Strain of right shoulder, subsequent encounter S46.911D [facility] [address] [id number] [address] [place] [address] Jan, Anxiety F41.9 and Strain of right shoulder, subsequent encounter S46.911D [facility] [address] [id number] [address] [place] [address] Jan, [facility] [address] [place] [id number] Jan, Neurogenic bladder N31.9 [facility] [address] [id number] [address] [place] [address] Dec, [facility] [address] [id number] [address] [place] [address] Dec, [facility] [address] [id number] [address] [place] [address] 24 Dec, 2019 Anxiety F41.9 and Strain of right shoulder, subsequent encounter S46.911D [place] [address] [id number] [address] [place] [address] 10 Dec, 2019 Other iron deficiency anemia D50.8 [place] [address] [id number] [address] [place] [address] Dec, [facility] [address] [place] [id number] Dec, Encounter for suprapubic catheter care Z 43.5 and Microcytic anemia D50.9 [facility] [place] [address] [id number] [address] [place], [place] [address] Dec, [facility] [address] [id number] [address] [place] [address] Nov, Anxiety F41.9 and Strain of right shoulder, subsequent encounter S46.911D [place] [address] [id number] [address] [place] [address] Nov, Hypertension I10 [facility] [address] [place] [id number] Nov, Pneumonia of both lungs due to infectiou s organism, unspecified part of lung J18.9 and Suprapubic catheter Z93.59 [facility] [address] [id number] [address] [place] [address] Nov, Hypertension I10 and Reactiv e depression F32.9 [place] [place] [address] [id number] [address] [place] [address] Oct, Strain of right shoulder, scherer bsequent encounter S46.911D and Anxiety F41.9 [facility] [place] [address] [id number] [address] [place] [address] Oct, [facility] [address] [place] [id number] Oct, Suprapubic catheter Z93.59 and Candidias is, intertriginous B37.2 [place] [address] [id number] [address] [place] [address] Oct, Suprapubic catheter Z93.59 [place] [address] [id number] [address] [place] [address] Oct, Anxiety F41.9 and Strain of right shoulder, subsequent encounter S46.911D [place] [address] [id number] [address] [place] [address] Sep, [place] [address] [id number] [address] [place] [address] Sep, [place] [address] [id number] [address] [place] [address] Sep, [facility] [address] [place] [id number] Sep, Suprapubic catheter Z93.59 [facility] [address] [id number] [address] [place] [address] Sep, Anxiety F41.9 and Strain of right shoulder, subsequent encounter S46.911D [facility] [address] [id number] [address] [place] [address] Aug, [facility] [address] [id number] [address] [place] [address] Aug, [facility] [address] [id number] [address] [place] [address] Aug, Anxiety F41.9 and Strain of right shoulder, subsequent encounter S46.911D [facility] [address] [place] [id number] Aug, Suprapubic catheter Z93.59 [facility] [address] [id number] [address] [place] [address] Jul, Strain of right shoulder, scherer bsequent encounter S46.911D and Anxiety F41.9 [facility] [address] [id number] [address] [place] [address] Jul, Anxiety F41.9 [facility] [address] [id number] [address] [place] [address] Jun, [facility] [address] [id number] [address] [place] [address] Jun, [facility] [address] [id number] [address] [place] [address] Jun, [facility] [address] [id number] [address] [place] [address] Jun, Strain of right shoulder, scherer bsequent encounter S46.911D [facility] [address] [id number] [address] [place] [address] Jun, Strain of right shoulder, scherer bsequent encounter S46.911D [facility] [address] [id number] [address] [place] [address] Jun, Anxiety F41.9 [facility] [address] [place] [id number] Jun, Neurogenic bladder N31.9 and Anxiety F41 .9 [facility] [address] [place] [id number] May, Anxiety F41.9 [place] [address] [id number] [address] [place] [address] May, Dysuria R30.0 [place] [address] [id number] [address] [place] [address] May, Strain of right shoulder, scherer bsequent encounter S46.911D and Anxiety F41.9 [facility] [address] [id number] [address] [place] [address] Apr, [facility] [address] [place] [id number] Apr, Strain of right shoulder, subsequent enc ounter S46.911D [facility] [address] [id number] [address] [place] [address] Apr, Strain of right shoulder, scherer bsequent encounter S46.911D and Anxiety F41.9 [facility] [address] [place] [id number] 13 Apr, 2019 Type 2 diabetes mellitus without complic ation, without long-term current use of insulin E11.9 and Neurogenic bladder N31.9 [facility] [address] [place] [id number] 11 Apr, 2019 Strain of right shoulder, subsequent enc ounter S46.911D ; History of GI bleed Z87.19 ; Neurogenic bladder N31.9 and Reactive depression F32.9 [place] [address] [id number] [address] [place] [address] 10 Apr, 2019 Acute pain of left shoulder M25.512 [place] [address] [id number] [address] [place] [address] Apr, [facility] [address] [id number] [address] [place] [address] Apr, Anxiety F41.9 and Other chronic specialist 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 [facility] [address] [place] [id number] March, Gastrointestinal hemorrhage associated w ith acute gastritis K29.01 [facility] [address] [id number] [address] [place] [address] March, [facility] [address] [place] [id number] March, Bronchitis J40 [facility] [address] [id number] [address] [place] [address] March, Cough R05 [facility] [address] [id number] [address] [place] [address] March, Other chronic pain G89.29 [facility] [address] [id number] [address] [place] [address] March, Anxiety F41.9 [facility] [address] [id number] [address] [place] [address] March, [facility] [address] [id number] [address] [place] [address] Feb, Other chronic pain G89.29 [facility] [address] [id number] [address] [place] [address] Feb, Anxiety F41.9 [facility] [address] [id number] [address] [place] [address] Feb, Other chronic pain G89.29 [facility] [address] [place] [id number] Feb, Neurogenic bladder N31.9 and Suprapubic catheter Z93.59 [facility] [address] [id number] [address] [place] [address] Jan, Anxiety F41.9 [facility] [address] [id number] [address] [place] [address] Dec, Anxiety F41.9 [facility] [address] [id number] [address] [place] [address] Dec, Other chronic pain G89.29 an d Anxiety F41.9 [facility] [address] [id number] [address] [place] [address] Dec, [facility] [employer] [address] [place] [id number] Dec, Neurogenic bladder N31.9 and Suprapubic catheter Z93.59 [facility] [address] [id number] [address] [place] [address] Nov, Other chronic pain G89.29 an d Anxiety F41.9 [facility] [address] [id number] [address] [place] [address] Nov, [facility] [employer] [facility] [address] [place] [id number] Nov, Suprapubic catheter Z93.59 [facility] [address] [id number] [address] [place] [address] Oct, Other chronic pain G89.29 an d Anxiety F41.9 [facility] [address] [id number] [address] [place] [address] Oct, [facility] [address] [id number] [address] [place] [address] Oct, Suprapubic catheter Z93.59 [facility] [address] [id number] [address] [place] [address] Oct, [facility] [address] [place] [id number] Oct, [facility] [address] [id number] [address] [place] [address] Oct, Anxiety F41.9 [facility] [address] [id number] [address] [place] [address] Oct, Anxiety F41.9 [facility] [employer] [address] [place] [id number] Oct, Other chronic pain G89.29 [facility] [address] [id number] [address] [place] [address] Sep, Other chronic pain G89.29 [facility] [employer] [address] [place] [id number] Sep, Suprapubic catheter Z93.59 and Cervicalg ia M54.2 [facility] [address] [id number] [address] [place] [address] Sep, [facility] [address] [id number] [address] [place] [address] Sep, [facility] [address] [id number] [address] [place] [address] Sep, [facility] [address] [place] [id number] Aug, Cystitis N30.90 [facility] [address] [id number] [address] [place] [address] Aug, [facility] [address] [id number] [address] [place] [address] Aug, Other chronic pain G89.29 [facility] [address] [id number] [address] [place] [address] Aug, [facility] [employer] [address] [place] [id number] Aug, Encounter for suprapubic catheter care Z 43.5 [facility] [address] [id number] [address] [place] [address] Jul, [facility] [employer] [address] [place] [id number] Jul, [facility] [address] [id number] [address] [place] [address] 11 Jul, 2018 Other chronic pain G89.29 [facility] [address] [id number] [address] [place] [address] Jul, [facility] [address] [id number] [address] [place] [address] Jul, [facility] [address] [place] [id number] Jun, 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 [facility] [address] [id number] [address] [place] [address] Jun, Other chronic pain G89.29 [facility] [address] [id number] [address] [place] [address] Jun, [facility] [address] [place] [id number] May, Anxiety F41.9 ; Type 2 diabetes mellitus without complication, without long-term current use of insulin E11.9 ; Hypertension I10 ; Low back pain M54.5 ; Paroxysmal atrial fibrillation I48.0 and 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 [facility] [address] [id number] [address] [place] [address] May, Other chronic pain G89.29 [facility] [address] [place] [id number] May, Low back pain M54.5 [facility] [address] [id number] [address] [place] [address] May, [facility] [address] [id number] [address] [place] [address] Apr, Other chronic pain G89.29 [facility] [address] [id number] [address] [place] [address] Apr, [facility] [address] [id number] [address] [place] [address] Apr, [facility] [address] [place] [id number] Apr, Closed compression fracture of L3 lumbar vertebra with routine healing, subsequent encounter S32.030D [facility] [address] [place] [id number] 14 Apr, 2018 Low back pain M54.5 [facility] [address] [place] [id number] 12 Apr, 2018 Coccydynia M53.3 [facility] [address] [id number] [address] [place] [address] March, [facility] [address] [id number] [address] [place] [address] March, Other chronic pain G89.29 [facility] [address] [id number] [address] [place] [address] March, [facility] [address] [id number] [address] [place] [address] March, [facility] [address] [id number] [address] [place] [address] Feb, [facility] [address] [id number] [address] [place] [address] Feb, Other chronic pain G89.29 [facility] [employer] [address] [place] [id number] Feb, Other chronic pain G89.29 and Anxiety F4 1.9 [facility] [address] [id number] [address] [place] [address] Feb, [facility] [address] [id number] [address] [place] [address] Jan, [facility] [address] [id number] [address] [place] [address] Jan, [facility] [address] [id number] [address] [place] [address] Jan, [facility] [address] [id number] [address] [place] [address] Jan, [facility] [address] [facility] [id number] [address] [place] [address] Dec, [facility] [address] [place] [id number] Dec, Peripheral vascular disease I73.9 ; 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 ; Other chronic pain G89.29 ; Anxiety F41.9 ; Reactive depression F32.9 ; Insomnia G47.00 and Type 2 diabetes mellitus without complication, without long-term current use of insulin E11.[address] [id number] [address] Nov, [place] [address] [id number] [place] [facility] [place] [id number] Nov, Anxiety F41.9 [place] [address] [facility] [id number] [address] [place] [address] Nov, [place] [address] [id number] [place] [facility] [place] [id number] Nov, Anxiety F41.9 [facility] [address] [place] [id number] Nov, Status post surgery Z98.890 ; Confused R 41.0 ; Anxiety F41.9 and Other chronic pain G89.29 [place] [address] [id number] [place] [id number] Nov, Other chronic pain G89.29 [facility] [address] [facility] [id number] [address] [place] [address] Oct, [place] [address] [id number] [place] [id number] Oct, Other chronic pain G89.29 [facility] [address] [facility] [id number] [address] [place] [address] Oct, Anxiety F41.9 [place] [address] [id number] [place] [facility] [place] [id number] Sep, Other chronic pain G89.29 [facility] [address] [id number] [place] [id number] Sep, [facility] [address] [place] [id number] Aug, Dysuria R30.0 and Anxiety F41.9 [facility] [address] [id number] [address] [place] [address] Aug, [facility] [address] [id number] [place] [facility] [place] [id number] Aug, Other chronic pain G89.29 [facility] [address] [id number] [address] [place] [address] Jul, Other chronic pain G89.29 [facility] [address] [id number] [place] [facility] [place] [id number] Jun, [facility] [address] [id number] [place] [id number] Jun, Other chronic pain G89.29 [facility] [address] [id number] [address] [place] [address] Jun, [facility] [address] [id number] [address] [place] [address] May, Other chronic pain G89.29 [facility] [address] [id number] [address] [place] [address] Apr, Other chronic pain G89.29 [facility] [address] [place] [id number] Apr, Reactive depression F32.9 and Pharyngeal dysphagia R13.13 [facility] [address] [id number] [address] [place] [address] Apr, Urinary tract infection with out hematuria, site unspecified N39.0 [facility] [address] [id number] [address] [place] [address] March, Other chronic pain G89.29 [facility] [address] [id number] [address] [place] [address] Feb, Other chronic pain G89.29 [facility] [address] [id number] [address] [place] [address] Feb, [facility] [address] [id number] [place] [facility] [place] [id number] Feb, [facility] [address] [place] [id number] Feb, Dysuria R30.0 and Ventral hernia without obstruction or gangrene K43.9 [place] [address] [facility] [id number] [address] [place] [address] Jan, Other chronic pain G89.29 [place] [address] [id number] [facility] [place] [id number] Dec, Other chronic pain G89.29 [place] [address] [facility] [id number] [address] [place] [address] Nov, Other chronic pain G89.29 [facility] [address] [place] [id number] Nov, Lymphadenitis I88.9 [facility] [address] [facility] [id number] [address] [place] [address] Nov, Other chronic pain G89.29 [facility] [address] [facility] [id number] [address] [place] [address] Nov, [facility] [address] [id number] [place] [facility] [place] [id number] Nov, Other chronic pain G89.29 [facility] [address] [place] [id number] Oct, Low back pain M54.5 ; Hypertension I10 a nd Type 2 diabetes mellitus without complication, without long-term current use of insulin E11.9 [facility] [address] [facility] [id number] [address] [place] [address] Oct, [facility] [address] [id number] [address] [place] [address] Oct, [facility] [address] [id number] [address] [place] [address] Oct, [facility] [address] [id number] [address] [place] [address] Oct, [facility] [address] [id number] [address] [place] [address] Sep, [facility] [address] [id number] [address] [place] [id number] Sep, [facility] [address] [id number] [address] [place] [id number] Aug, Other chronic pain G89.29 [facility] [address] [id number] [address] [place] [id number] Jul, [facility] [address] [id number] [address] [place] [id number] Jul, [facility] [address] [id number] [address] [place] [id number] Jul, [facility] [address] [id number] [address] [place] [id number] Jun, [facility] [address] [id number] [address] [place] [id number] Jun, [facility] [address] [place] [id number] Jun, Low back pain M54.5 ; Other chronic pain G89.29 and Coronary artery disease I25.10 [facility] [address] [id number] [address] [place] [id number] Jun, [facility] [address] [id number] [address] [place] [id number] May, [facility] [address] [id number] [address] [place] [id number] May, [facility] [address] [id number] [address] [place] [id number] 13 May, 2016 Other chronic pain G89.29 [facility] [address] [id number] [address] [place] [id number] 13 May, 2016 [facility] [address] [id number] [address] [place] [id number] 28 Apr, 2016 [facility] [address] [id number] [address] [place] [id number] 17 Apr, 2016 Acute cystitis without hemat uria N30.00 [facility] [address] [id number] [address] [place] [id number] 16 Apr, 2016 Acute cystitis without hemat uria N30.00 ; Coronary artery disease I25.10 ; Low back pain M54.5 and Other chronic pain G89.29 [facility] [address] [id number] [address] [place] [id number] 13 Apr, 2016 Other chronic pain G89.29 [facility] [address] [id number] [address] [place] [address] March, Other chronic pain G89.29 [facility] [address] [id number] [address] [place] [address] 18 Feb, 2016 [facility] [address] [id number] [address] [place] [address] 15 Feb, 2016 Arthritis M19.90 [facility] [address] [id number] [address] [place] [address] Feb, [facility] [address] [id number] [address] [place] [address] 30 Jan, 2016 [facility] [address] [id number] [address] [place] [address] Jan, [facility] [address] [id number] [address] [place] [address] Jan, Other chronic pain G89.29 [facility] [address] [id number] [address] [place] [address] Jan, Hypertension I10 ; Coronary artery disease I25.10 and Insomnia G47.00 [facility] [address] [id number] [address] [place] [address] Jan, [facility] [address] [id number] [address] [place] [address] Dec, Right hip pain M25.551 [facility] [address] [id number] [address] [place] [address] Dec, [facility] [address] [id number] [address] [place] [address] Dec, [facility] [address] [id number] [address] [place] [address] Dec, [facility] [address] [id number] [address] [place] [address] Dec, Other chronic pain G89.29 [facility] [address] [id number] [address] [place] [address] Dec, [facility] [address] [id number] [address] [place] [address] Nov, [facility] [address] [id number] [address] [place] [address] Nov, Other chronic pain G89.29 [facility] [address] [id number] [address] [place] [address] Nov, Right hip pain M25.551 and C oronary artery disease I25.10 [facility] [address] [id number] [address] [place] [address] Nov, Other chronic pain G89.29 [facility] [address] [id number] [address] [place] [address] Oct, [facility] [address] [id number] [address] [place] [address] Oct, [facility] [address] [id number] [address] [place] [address] Sep, [facility] [address] [id number] [address] [place] [address] Sep, [facility] [address] [facility] [id number] [address] [place] [address] Aug, [facility] [address] [facility] [id number] [address] [place] [address] Aug, Hypertension I10 ; Coronary artery disease I25.10 and Arthritis M19.90 [facility] [address] [id number] [address] [place] [address] Jun, [facility] [address] [facility] [id number] [address] [place] [address] Jun, Essential hypertension, jayson gn 401.1 ; Other chronic pain 338.29 and Chronic airway obstruction, not elsewhere classified 496 [facility] [address] [facility] [id number] [address] [place] [address] Jun, [facility] [address] [id number] [address] [place] [address] Jun, [facility] [address] [facility] [id number] [address] [place] [address] Jun, [facility] [address] [id number] [address] [place] [address] May, [facility] [address] [id number] [address] [place] [address] May, [facility] [address] [facility] [id number] [address] [place] [address] Apr, [facility] [address] [facility] [id number] [address] [place] [address] Apr, [facility] [address] [facility] [id number] [address] [place] [address] Apr, [facility] [address] [id number] [address] [place] [address], [place] [address] March, [facility] [address] [id number] [address] [place] [address], [place] [address] March, [facility] [address] [id number] [address] [place] [address], [place] [address] March, [facility] [address] [id number] [address] [place] [address], [place] [address] March, [facility] [address] [id number] [address] [place] [address], [place] [address] March, Sialadenitis 527.2 [facility] [address] [id number] [address] [place] [address], [place] [address] Feb, [facility] [address] [id number] [address] [place] [address], [place] [address] Feb, [facility] [address] [id number] [address] [place] [address], [place] [address] Feb, [facility] [address] [id number] [address] [place] [address], [place] [address] Feb, [facility] [address] [id number] [address] [place] [address], [place] [address] Feb, [facility] [address] [id number] [address] [place] [address], [place] [address] Jan, [facility] [address] [id number] [address] [place] [address], [place] [address] Jan, [facility] [address] [id number] [address] [place] [address], [place] [address] Jan, [facility] [address] [id number] [address] [place] [address], [place] [address] Jan, [facility] [address] [id number] [address] [place] [address], [place] [address] Jan, [facility] [address] [id number] [address] [place] [address], [place] [address] Jan, [facility] [address] [id number] [address] [place] [address], [place] [address] Dec, [facility] [address] [id number] [address] [place] [address], [place] [address] Dec, 2014 [facility] [address] [id number] [address] [place] [address], [place] [address] Dec, 2014 [facility] [address] [id number] [address] [place] [address], [place] [address] Dec, 2014 [facility] [address] [id number] [address] [place] [address], [place] [address] Dec, [facility] [address] [id number] [address] [place] [address], [place] [address] Dec, [facility] [address] [id number] [address] [place] [address], [place] [address] Nov, [facility] [address] [id number] [address] [place] [address], [place] [address] Nov, [facility] [address] [id number] [address] [place] [address], [place] [address] Nov, [facility] [address] [id number] [address] [place] [address], [place] [address] Nov, [facility] [address] [id number] [address] [place] [address], [place] [address] Nov, [facility] [address] [id number] [address] [place] [address], [place] [address] Nov, [facility] [address] [id number] [address] [place] [address], [place] [address] Nov, [facility] [address] [id number] [address] [place] [address], [place] [address] Nov, [facility] [address] [id number] [address] [place] [address], [place] [address] 16 Nov, 2014 [facility] [address] [id number] [address] [place] [address], [place] [address] Nov, [facility] [address] [id number] [address] [place] [address], [place] [address] Nov, [facility] [address] [id number] [address] [place] [address], [place] [address] Nov, [facility] [address] [id number] [address] [place] [address], [place] [address] Nov, [facility] [address] [id number] [address] [place] [address], [place] [address] Nov, [facility] [address] [id number] [address] [place] [address], [place] [address] Oct, [facility] [address] [id number] [address] [place] [address], [place] [address] Oct, [facility] [address] [id number] [address] [place] [address], [place] [address] Oct, [facility] [address] [id number] [address] [place] [address], [place] [address] 18 Oct, 2014 [facility] [address] [id number] [address] [place] [address], [place] [address] Oct, [facility] [address] [id number] [address] [place] [address], [place] [address] 17 Oct, 2014 [facility] [address] [id number] [address] [place] [address], [place] [address] 17 Oct, 2014 [facility] [address] [id number] [address] [place] [address], [place] [address] 10 Oct, 2014 [facility] [address] [id number] [address] [place] [address], [place] [address] Oct, [facility] [address] [id number] [address] [place] [address], [place] [address] Sep, [facility] [address] [id number] [address] [place] [address], [place] [address] Sep, [facility] [address] [id number] [address] [place] [address], [place] [address] Sep, [facility] [address] [id number] [address] [place] [address], [place] [address] Sep, [facility] [address] [id number] [address] [place] [address], [place] [address] Sep, [facility] [address] [id number] [address] [place] [address], [place] [address] Sep, [facility] [address] [id number] [address] [place] [address], [place] [address] Sep, [facility] [address] [id number] [address] [place] [address], [place] [address] Sep, [facility] [address] [id number] [address] [place] [address], [place] [address] Sep, [facility] [address] [id number] [address] [place] [address], [place] [address] Sep, [facility] [address] [id number] [address] [place] [address], [place] [address] Sep, [facility] [address] [id number] [address] [place] [address], [place] [address] Sep, [facility] [address] [id number] [address] [place] [address], [place] [address] Aug, [facility] [address] [id number] [address] [place] [address], [place] [address] Aug, [facility] [address] [id number] [address] [place] [address], [place] [address] Aug, [facility] [address] [id number] [address] [place] [address], [place] [address] Aug, [facility] [address] [id number] [address] [place] [address], [place] [address] Aug, [facility] [address] [id number] [address] [place] [address], [place] [address] 28 Aug, 2014 [facility] [address] [id number] [address] [place] [address], [place] [address] Aug, [facility] [address] [id number] [address] [place] [address], [place] [address] 17 Aug, 2014 [facility] [address] [id number] [address] [place] [address], [place] [address] 30 Jul, 2013 [facility] [address] [id number] [address] [place] [address], [place] [address] 30 Jul, 2013 [facility] [address] [id number] [address] [place] [address], [place] [address] 30 Jul, 2013 [facility] [address] [id number] [address] [place] [address], [place] [address] 30 Jul, 2013 [facility] [address] [id number] [address] [place] [address], [place] [address] 25 Jul, 2013 [facility] [address] [id number] [address] [place] [address], [place] [address] 25 Jul, 2013 [facility] [address] [id number] [address] [place] [address], [place] [address] 15 Jul, 2014 [facility] [address] [id number] [address] [place] [address], [place] [address] 15 Jul, 2014 [facility] [address] [id number] [address] [place] [address], [place] [address] 11 Jul, 2014 [facility] [address] [id number] [address] [place] [address], [place] [address] Jul, [facility] [address] [id number] [address] [place] [address], [place] [address] Jun, [facility] [address] [id number] [address] [place] [address], [place] [address] Jun, [facility] [address] [id number] [address] [place] [address], [place] [address] Jun, [facility] [address] [id number] [address] [place] [address], [place] [address] Jun, [facility] [address] [id number] [address] [place] [address], [place] [address] Jun, [facility] [address] [id number] [address] [place] [address], [place] [address] Jun, [facility] [address] [id number] [address] [place] [address], [place] [address] Jun, [facility] [address] [id number] [address] [place] [address], [place] [address] Jun, [facility] [address] [id number] [address] [place] [address], [place] [address] Jun, [facility] [address] [id number] [address] [place] [address], [place] [address] Jun, [facility] [address] [id number] [address] [place] [address], [place] [address] Jun, [facility] [address] [id number] [address] [place] [address], [place] [address] Jun, [facility] [address] [id number] [address] [place] [address], [place] [address] Jun, [facility] [address] [id number] [address] [place] [address], [place] [address] Jun, [facility] [address] [id number] [address] [place] [address], [place] [address] Jun, [facility] [address] [id number] [address] [place] [address], [place] [address] Jun, [facility] [address] [id number] [address] [place] [address], [place] [address] Jun, [facility] [address] [id number] [address] [place] [address], [place] [address] Jun, [facility] [address] [id number] [facility] [place] [address] Jun, [facility] [address] [id number] [facility] [place] [address] Jun, [facility] [address] [id number] [facility] [place] [address] Jun, [facility] [address] [id number] [facility] [place] [address] Jun, [facility] [address] [id number] [facility] [place] [address] May, [facility] [address] [id number] [address] [place] [address], [place] [address] May, [facility] [address] [id number] [address] [place] [address], [place] [address] May, [facility] [address] [id number] [address] [place] [address], [place] [address] May, [facility] [address] [id number] [address] [place] [address], [place] [address] May, [facility] [address] [id number] [address] [place] [address], [place] [address] May, [facility] [address] [id number] [address] [place] [address], [place] [address] May, [facility] [address] [id number] [address] [place] [address], [place] [address] May, [facility] [address] [id number] [address] [place] [address], [place] [address] May, [facility] [address] [id number] [address] [place] [address], [place] [address] May, [facility] [address] [id number] [address] [place] [address], [place] [address] May, [facility] [address] [id number] [address] [place] [address], [place] [address] May, [facility] [address] [id number] [facility] [place] [address] May, [facility] [address] [id number] [facility] [place] [address] Apr, [facility] [address] [id number] [facility] [place] [address] Apr, [facility] [address] [id number] [facility] [place] [address] Apr, [facility] [address] [id number] [facility] [place] [address] Apr, [facility] [address] [id number] [address] [place] [address], [place] [address] Apr, [facility] [address] [id number] [address] [place] [address], [place] [address] Apr, [facility] [address] [id number] [address] [place] [address], [place] [address] Apr, [facility] [address] [id number] [address] [place] [address], [place] [address] Apr, [facility] [address] [id number] [address] [place] [address], [place] [address] Apr, [facility] [address] [id number] [address] [place] [address], [place] [address] March, [facility] [address] [id number] [address] [place] [address], [place] [address] March, [facility] [address] [id number] [address] [place] [address], [place] [address] March, [facility] [address] [id number] [address] [place] [address], [place] [address] March, [facility] [address] [id number] [facility] [place] [address] March, [facility] [address] [id number] [address] [place] [address], [place] [address] March, [facility] [address] [id number] [address] [place] [address], [place] [address] March, [facility] [address] [id number] [address] [place] [address], [place] [address] March, [facility] [address] [id number] [address] [place] [address], [place] [address] March, [facility] [address] [id number] [address] [place] [address], [place] [address] March, [facility] [address] [id number] [address] [place] [address], [place] [address] March, [facility] [address] [id number] [address] [place] [address], [place] [address] March, [facility] [address] [id number] [address] [place] [address], [place] [address] March, [facility] [address] [id number] [address] [place] [address], [place] [address] March, [facility] [address] [id number] [address] [place] [address], [place] [address] March, [facility] [address] [id number] [address] [place] [address], [place] [address] March, [facility] [address] [id number] [address] [place] [address], [place] [address] March, [facility] [address] [id number] [address] [place] [address], [place] [address] March, [facility] [address] [id number] [address] [place] [address], [place] [address] March, [facility] [address] [id number] [address] [place] [address], [place] [address] March, [facility] [address] [id number] [address] [place] [address], [place] [address] Feb, [facility] [address] [id number] [facility] [place] [address] 29 Feb, 2014 [facility] [address] [id number] [facility] [place] [address] Feb, [facility] [address] [id number] [facility] [place] [address] Feb, [facility] [address] [id number] [address] [place] [address], [place] [address] Feb, [facility] [address] [id number] [facility] [place] [address] Feb, [facility] [address] [id number] [address] [place] [address], [place] [address] Feb, [facility] [address] [id number] [address] [place] [address], [place] [address] Feb, [facility] [address] [id number] [address] [place] [address], [place] [address] Jan, [facility] [address] [id number] [address] [place] [address], [place] [address] Jan, [facility] [address] [id number] [address] [place] [address], [place] [address] 24 Jan, 2014 [facility] [address] [id number] [address] [place] [address], [place] [address] 24 Jan, 2014 [facility] [address] [id number] [address] [place] [address], [place] [address] Jan, [facility] [address] [id number] [address] [place] [address], [place] [address] Jan, [facility] [address] [id number] [address] [place] [address], [place] [address] Jan, [facility] [address] [id number] [address] [place] [address], [place] [address] Jan, [facility] [address] [id number] [address] [place] [address], [place] [address] Jan, [facility] [address] [id number] [address] [place] [address], [place] [address] Jan, [facility] [address] [id number] [address] [place] [address], [place] [address] Dec, [facility] [address] [id number] [address] [place] [address], [place] [address] Dec, [facility] [address] [id number] [address] [place] [address], [place] [address] Dec, [facility] [address] [id number] [address] [place] [address], [place] [address] Dec, [facility] [address] [id number] [address] [place] [address], [place] [address] Dec, [facility] [address] [id number] [address] [place] [address], [place] [address] Dec, [facility] [address] [id number] [address] [place] [address], [place] [address] Dec, [facility] [address] [id number] [address] [place] [address], [place] [address] Dec, [facility] [address] [id number] [address] [place] [address], [place] [address] Nov, [facility] [address] [id number] [address] [place] [address], [place] [address] Nov, [facility] [address] [id number] [address] [place] [address], [place] [address] Nov, [facility] [address] [id number] [address] [place] [place] [address], [place] [address] Nov, [facility] [address] [id number] [address] [place] [address], [place] [address] Nov, [facility] [address] [id number] [address] [place] [address], [place] [address] Nov, [facility] [address] [id number] [address] [place] [address], [place] [address] Nov, [facility] [address] [id number] [address] [place] [address], [place] [address] Nov, [facility] [address] [id number] [address] [place] [address], [place] [address] Nov, [facility] [address] [id number] [address] [place] [address], [place] [address] Nov, [facility] [address] [id number] [address] [place] [address], [place] [address] Nov, [facility] [address] [id number] [address] [place] [address], [place] [address] Nov, [facility] [address] [id number] [address] [place] [address], [place] [address] Nov, [facility] [address] [id number] [address] [place] [address], [place] [address] Oct, [facility] [address] [id number] [address] [place] [address], [place] [address] Oct, [facility] [address] [id number] [address] [place] [address], [place] [address] Oct, [facility] [address] [id number] [address] [place] [address], [place] [address] Oct, [facility] [address] [id number] [address] [place] [address], [place] [address] Oct, [facility] [address] [id number] [address] [place] [address], [place] [address] Oct, [facility] [address] [id number] [address] [place] [address], [place] [address] Oct, [facility] [address] [id number] [address] [place] [address], [place] [address] Oct, [facility] [address] [id number] [address] [address] 17 Oct, 2013 [facility] [address] [id number] [address] [place] [address], [place] [address] 17 Oct, 2013 [facility] [address] [id number] [address] [place] [address], [place] [address] Oct, [facility] [address] [id number] [address] [place] [address], [place] [address] Oct, [facility] [address] [id number] [address] [place] [address] 02 Oct, 2013 [facility] [address] [id number] [address] [place] [address], [place] [address] Oct, [facility] [address] [id number] [address] [place] [address], [place] [address] 14 Sep, 2013 [facility] [address] [id number] [address] [place] [address], [place] [address] Sep, [facility] [address] [id number] [address] [place] [address] Sep, [facility] [address] [id number] [address] [place] [address] 05 Sep, 2013 [facility] [address] [id number] [address] [place] [address] Sep, [facility] [address] [id number] [address] [place] [address] Sep, [facility] [address] [id number] [address] [place] [address] Sep, [facility] [address] [id number] [address] [place] [address], [place] [address] Sep, [facility] [address] [id number] [address] [place] [address] Sep, [facility] [address] [id number] [address] [place] [address] Sep, [facility] [address] [id number] [address] [place] [address], [place] [address] 24 Aug, 2012 [facility] [address] [id number] [address] [place] [address], [place] [address] 24 Aug, 2012 [facility] [address] [id number] [address] [place] [address], [place] [address] 24 Aug, 2012 [facility] [address] [id number] [address] [place] [address], [place] [address] 24 Aug, 2012 [facility] [address] [id number] [address] [place] [address], [place] [address] Aug, 2012 [facility] [address] [id number] [address] [place] [address], [place] [address] Aug, 2012 [facility] [address] [id number] [address] [place] [address], [place] [address] 23 Aug, 2012 [facility] [address] [id number] [address] [place] [address], [place] [address] 23 Aug, 2012 [facility] [address] [id number] [address] [place] [address], [place] [address] 22 Aug, 2013 [facility] [address] [id number] [address] [place] [address], [place] [address] 22 Aug, 2012 [facility] [address] [id number] [address] [place] [address], [place] [address] 18 Aug, 2012 [facility] [address] [id number] [address] [place] [address], [place] [address] 18 Aug, 2012 [facility] [address] [id number] [address] [place] [address], [place] [address] 18 Aug, 2012 [facility] [address] [id number] [address] [place] [address], [place] [address] 18 Aug, 2012 [facility] [address] [id number] [address] [place] [address], [place] [address] 17 Aug, 2012 [facility] [address] [id number] [address] [place] [address] 14 Aug, 2013 [facility] [address] [id number] [address] [place] [address], [place] [address] 14 Aug, 2013 [facility] [address] [id number] [address] [place] [address], [place] [address] 01 Aug, 2013 [facility] [address] [id number] [address] [place] [address], [place] [address] 20 Jul, 2013 [facility] [address] [id number] [address] [place] [address], [place] [address] 19 Jul, 2013 [facility] [address] [id number] [address] [place] [address], [place] [address] 18 Jul, 2013 [facility] [address] [id number] [address] [place] [address], [place] [address] 11 Jul, 2013 [facility] [address] [id number] [address] [place] [address], [place] [address] Jul, [facility] [address] [id number] [address] [place] [address], [place] [address] 28 Jun, 2013 [facility] [address] [id number] [address] [place] [address], [place] [address] Jun, [facility] [address] [id number] [address] [place] [address], [place] [address] Jun, [facility] [address] [id number] [address] [place] [address], [place] [address] 15 Jun, 2013 [facility] [address] [id number] [address] [place] [address], [place] [address] 14 Jun, 2013 [facility] [address] [id number] [address] [place] [address], [place] [address] Jun, [facility] [address] [id number] [address] [place] [address], [place] [address] Jun, [facility] [address] [id number] [address] [place] [address], [place] [address] 08 Jun, 2013 [facility] [address] [id number] [address] [place] [address], [place] [address] Jun, [facility] [address] [id number] [address] [place] [address], [place] [address] Jun, [facility] [address] [id number] [address] [place] [address], [place] [address] May, [facility] [address] [id number] [address] [place] [address], [place] [address] May, [facility] [address] [id number] [address] [place] [address], [place] [address] May, [facility] [address] [id number] [address] [place] [address], [place] [address] May, [facility] [address] [id number] [address] [place] [address], [place] [address] May, [facility] [address] [id number] [address] [place] [address], [place] [address] May, [facility] [address] [id number] [address] [place] [address], [place] [address] May, [facility] [address] [id number] [address] [place] [address], [place] [address] May, [facility] [address] [id number] [address] [place] [address], [place] [address] May, [facility] [address] [id number] [address] [place] [address], [place] [address] Apr, [facility] [address] [id number] [address] [place] [address], [place] [address] Apr, [facility] [address] [id number] [address] [place] [address], [place] [address] Apr, [facility] [address] [id number] [address] [place] [address], [place] [address] Apr, [facility] [address] [id number] [address] [place] [address], [place] [address] Apr, [facility] [address] [id number] [address] [place] [address], [place] [address] 04 Apr, 2013 [facility] [address] [id number] [address] [place] [address], [place] [address] Apr, [facility] [address] [id number] [address] [place] [address], [place] [address] March, [facility] [address] [id number] [address] [place] [address], [place] [address] Feb, [facility] [address] [id number] [address] [place] [address], [place] [address] Feb, [facility] [address] [id number] [address] [place] [address], [place] [address] Feb, [facility] [address] [id number] [address] [place] [address], [place] [address] Jan, [facility] [address] [id number] [address] [place] [address], [place] [address] Jan, [facility] [address] [id number] [address] [place] [address], [place] [address] Jan, [facility] [address] [id number] [address] [place] [address], [place] [address] Jan, [facility] [address] [id number] [address] [place] [address], [place] [address] Jan, [facility] [address] [id number] [address] [place] [address], [place] [address] Jan, [facility] [address] [id number] [address] [place] [address], [place] [address] 07 Jan, 2013 [facility] [address] [id number] [address] [place] [address], [place] [address] Jan, [facility] [address] [id number] [address] [place] [address], [place] [address] Dec, [facility] [address] [id number] [address] [place] [address], [place] [address] 25 Dec, 2012 [facility] [address] [id number] [address] [place] [address], [place] [address] 13 Dec, 2012 [facility] [address] [id number] [address] [place] [address], [place] [address] 11 Dec, 2012 [facility] [address] [id number] [address] [place] [address], [place] [address] 07 Dec, 2012 [facility] [address] [id number] [address] [place] [address], [place] [address] 06 Dec, 2012 [facility] [address] [id number] [address] [place] [address], [place] [address] 05 Dec, 2012 [facility] [address] [id number] [address] [place] [address], [place] [address] Nov, [facility] [address] [id number] [address] [place] [address], [place] [address] Nov, [facility] [address] [id number] [address] [place] [address], [place] [address] Nov, [facility] [address] [id number] [address] [place] [address], [place] [address] Nov, [facility] [address] [id number] [address] [place] [address], [place] [address] Nov, [facility] [address] [id number] [address] [place] [address], [place] [address] Nov, [facility] [address] [id number] [address] [place] [address], [place] [address] Nov, [facility] [address] [id number] [address] [place] [address], [place] [address] Oct, [facility] [address] [id number] [address] [place] [address], [place] [address] Oct, [facility] [address] [id number] [address] [place] [address], [place] [address] Oct, [facility] [address] [id number] [address] [place] [address], [place] [address] Oct, [facility] [address] [id number] [address] [place] [address], [place] [address] Oct, [facility] [address] [id number] [address] [place] [address], [place] [address] Oct, [facility] [address] [id number] [address] [place] [address], [place] [address] Oct, [facility] [address] [id number] [address] [place] [address], [place] [address] Oct, [facility] [address] [id number] [address] [place] [address], [place] [address] Oct, [facility] [address] [id number] [address] [place] [address], [place] [address] Oct, [facility] [address] [id number] [address] [place] [address], [place] [address] Oct, [facility] [address] [id number] [address] [place] [address], [place] [address] Oct, [facility] [address] [id number] [address] [place] [address], [place] [address] Sep, [facility] [address] [id number] [address] [place] [address], [place] [address] Sep, [facility] [address] [id number] [address] [place] [address], [place] [address] Sep, [facility] [address] [id number] [address] [place] [address], [place] [address] Sep, [facility] [address] [id number] [address] [place] [address], [place] [address] Sep, [facility] [address] [id number] [address] [place] [address], [place] [address] Sep, [facility] [address] [id number] [address] [place] [address], [place] [address] Sep, [facility] [address] [id number] [address] [place] [address], [place] [address] Sep, [facility] [address] [id number] [address] [place] [address], [place] [address] Sep, [facility] [address] [id number] [address] [place] [address], [place] [address] Sep, [facility] [address] [id number] [address] [place] [address], [place] [address] Sep, [facility] [address] [id number] [address] [place] [address], [place] [address] Aug, [facility] [address] [id number] [address] [place] [address], [place] [address] Aug, [facility] [address] [id number] [address] [place] [address], [place] [address] Aug, [facility] [address] [id number] [address] [place] [address] Aug, [facility] [address] [id number] [address] [place] [address], [place] [address] Aug, [facility] [address] [id number] [address] [place] [address] Aug, [facility] [address] [id number] [address] [place] [address] Aug, [facility] [address] [id number] [address] [place] [address] Aug, [facility] [address] [id number] [address] [place] [address], [place] [address] Aug, [facility] [address] [id number] [address] [place] [address] Aug, [facility] [address] [id number] [address] [place] [address], [place] [address] Jul, [facility] [address] [id number] [address] [place] [address], [place] [address] 20 Jul, 2012 [facility] [address] [id number] [address] [place] [address], [place] [address] 10 Jul, 2012 [facility] [address] [id number] [address] [place] [address], [place] [address] Jul, [facility] [address] [id number] [address] [place] [address], [place] [address] Jun, [facility] [address] [id number] [address] [place] [address], [place] [address] Jun, [facility] [address] [id number] [address] [place] [address], [place] [address] Jun, [facility] [address] [id number] [address] [place] [address], [place] [address] Jun, [facility] [address] [id number] [address] [place] [address], [place] [address] Jun, [facility] [address] [id number] [address] [place] [address], [place] [address] Jun, [facility] [address] [id number] [address] [place] [address], [place] [address] Jun, [facility] [address] [id number] [address] [place] [address], [place] [address] May, [facility] [address] [id number] [address] [place] [address], [place] [address] May, [facility] [address] [id number] [address] [place] [address], [place] [address] May, [facility] [address] [id number] [address] [place] [address], [place] [address] May, [facility] [address] [id number] [address] [place] [address], [place] [address] May, [facility] [address] [id number] [address] [place] [address], [place] [address] Apr, [facility] [address] [id number] [address] [place] [address], [place] [address] Apr, [facility] [address] [id number] [address] [place] [address], [place] [address] Apr, [facility] [address] [id number] [address] [place] [address], [place] [address] Apr, [facility] [address] [id number] [address] [place] [address], [place] [address] Apr, [facility] [address] [id number] [address] [place] [address], [place] [address] March, [facility] [address] [id number] [address] [place] [address], [place] [address] March, [facility] [address] [id number] [address] [place] [address], [place] [address] March, [facility] [address] [id number] [address] [place] [address], [place] [address] March, [facility] [address] [id number] [address] [place] [address], [place] [address] March, [facility] [address] [id number] [address] [place] [address], [place] [address] March, [facility] [address] [id number] [address] [place] [address], [place] [address] March, [facility] [address] [id number] [address] [place] [address], [place] [address] March, [facility] [address] [id number] [address] [place] [address], [place] [address] March, [facility] [address] [id number] [address] [place] [address], [place] [address] March, [facility] [address] [id number] [address] [place] [address], [place] [address] Feb, [facility] [address] [id number] [address] [place] [address], [place] [address] Feb, [facility] [address] [id number] [address] [place] [address], [place] [address] Feb, [facility] [address] [id number] [address] [place] [address], [place] [address] Feb, [facility] [address] [id number] [address] [place] [address], [place] [address] Feb, [facility] [address] [id number] [address] [place] [address], [place] [address] Feb, [facility] [address] [id number] [address] [place] [address], [place] [address] Feb, [facility] [address] [id number] [address] [place] [address], [place] [address] Feb, [facility] [address] [id number] [address] [place] [address], [place] [address] Feb, [facility] [address] [id number] [address] [place] [address], [place] [address] Jan, [facility] [address] [id number] [address] [place] [address], [place] [address] Jan, [facility] [address] [id number] [address] [place] [address], [place] [address] Jan, [facility] [address] [id number] [address] [place] [address], [place] [address] Jan, [facility] [address] [id number] [address] [place] [address], [place] [address] Dec, [facility] [address] [id number] [address] [place] [address], [place] [address] Dec, [facility] [address] [id number] [address] [place] [address], [place] [address] Nov, [facility] [address] [id number] [address] [place] [address], [place] [address] Nov, [facility] [address] [id number] [address] [place] [address] Nov, [facility] [address] [id number] [address] [place] [address] Nov, [facility] [address] [id number] [address] [place] [address] Nov, [facility] [address] [id number] [address] [place] [address] Oct, [facility] [address] [id number] [address] [place] [address] Oct, [facility] [address] [id number] [address] [place] [address] Oct, [facility] [address] [id number] [address] [place] [address] Oct, [facility] [address] [address] [id number] [address] [place] [id number] Oct, [facility] [address] [id number] [address] [place] [id number] Oct, [facility] [address] [id number] [address] [place] [id number] Oct, [facility] [address] [id number] [address] [place] [phone] Oct, [facility] [address] [id number] [address] [place] [phone] Sep, IMMUNIZATIONS No Known Immunizations SOCIAL HISTORY Never Assessed REASON FOR VISIT [facility] PLAN OF CARE Activity Details Follow Up prn Reason: VITAL SIGNS MEDICATIONS Medication Instructions Dosage Frequency Start Date End Date Duration S tatus Aspirin 81 MG Orally Once a day 1 tablet 24h 30 day( s) Active Eliquis 5 MG Orally 2 times a day 1 tablet 12h 30 Active Symbicort 160-4.5 MCG/ACT Inhalation 2 times a day 2 puffs 12h 30 days Active Albuterol Sulfate HFA 108 (90 Base) MCG/ACT Inhalation every 6 hrs 2 puffs as needed 6h Nov, Active MetFORMIN HCl ER 500 MG Orally Once a day 1 tablet with evening meal 24h Active Zoloft 50 MG Orally Once a day 1 tablet 24h Oct, 30 days Active Tylenol 325 MG Orally every 4 hrs 2 tablets as needed 4h Feb, Active Oxybutynin Chloride ER 10 MG 1 TABLET BY MOUTH EVERY DAY FOR UNINHIBITED NEUROPATHC BLADDER, NEC Acti ve Metoprolol Tartrate 50 MG Orally Twice a day 1 tablet with food 12h Active Trazodone HCl 50 mg Orally at bedtime 1/2 tablet Active Tamsulosin HCl 0.4 MG Orally Once a day 1 capsule 24h 30 Active Myrbetriq 25 MG Orally Once a day 1 tablet 24h 18 Oct, 2018 30 days Active Gabapentin 400 MG Orally Three times a day 1 capsule 8h Active Tramadol HCl 50 MG Orally 3 times a day 1 tablet 8h Dec, 28 days Active MiraLax 17 gm/dose Orally Once a day 17 grams mixed in 8 oz of w ater or juice 24h Apr, Active BuPROPion HCl ER (XL) 300 MG Orally Once a day at HS 1 tablet in morning Active Ondansetron HCl 4 MG Orally every 6 hours as needed NAUSEA/VOMITING 1 tablets Active Furosemide 20 mg Orally every other day 1 tablet Active Atorvastatin Calcium 40 MG Orally Once a day 1 tablet 24h 2015 30 day(s) Active Potassium Chloride Radha ER 20 meq Orally q48H TAKES WITH FUR OSEMIDE 2 tablet with food Active Estradiol 0.1 MG/GM Vaginal as needed 1 application to skin Active Potassium Chloride ER 20 MEQ TAKE TWO TABLETS BY MOUTH EVERY OTHER DAY Active Triamcinolone Acetonide 0.5 % Externally Twice a day x 14 da ys and then prn 1 application to affected area Jun, Active Lorazepam 0.5 mg Orally Once a day 1 tablet at betime 24h Apr 28 days Active RESULTS No Results PROCEDURES Procedure Date Ordered Result Body Site DOMICIL/R-HOME VISIT EST PAT February 17, 2019 INSTRUCTIONS MEDICATIONS ADMINISTERED No Known Medications MEDICAL [...] History No Surgical history information Hospitalization History [facility]- Urosepsis, ab d pain and fever, discharged 11/27/2017 11/26/2017 Hospitalization History [facility]- Went Unrepsonsive, Hit head 2017 Hospitalization History [facility]- Back Pain 8
--- OUTSIDE RECORDS SUMMARY | 2020-06-18 14:35 | XMS REPORT ---
Author Author Sanjuanita Abdul Doctor Organization [facility] Address Unknown Phone Unavailable Care Team Providers Care Intensive Care Unit Nurse Name Role Phone Migration, Doctor Unavailable Unavailable PROBLEMS Type Condition ICD9-CM Code LQQ30-UC Code Onset Dates Condition S tatus SNOMED Code Problem Hypertension I10 Active 5413470 3 Problem Hyperlipidemia E78.5 Active 67449 004 Problem Coronary artery disease I25.10 Active 16474819 Problem Low back pain M54.5 Active 830552 009 Problem Other chronic pain G89.29 Active 8 0480619 Problem Ventral hernia without obstruction or gangrene K43 .9 Active 731069573 Problem Type 2 diabetes mellitus wit hout complication, without long-term current use of insulin E11.9 Active 680187220 Problem Anxiety F41.9 Active 76891437 Problem Peripheral vascular disease I73.9 Ac tive 147402122 Problem Insomnia G47.00 Active 532007235 Problem Microcytic anemia D50.9 Active 23 9393827 Problem Pharyngeal dysphagia R13.13 Active [id number] Problem Other iron deficiency anemia D50.8 A ctive 60469094 Problem Reactive depression F32.9 Active 60946704 Problem Paroxysmal atrial fibrillation I48.0 Active 656283269 Problem 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 Active 28507366 Problem Encounter for suprapubic catheter care Z43.5 Active 376057338 Problem Neurogenic bladder N31.9 Active 3 24492119 ALLERGIES No Information ENCOUNTERS Encounter Location Date Diagnosis [facility] [address] [facility] [id number] [address] [place] [phone] May, [facility] [address] [facility] [id number] [address] [place] [phone] May, Strain of right shoulder, scherer bsequent encounter S46.911D and Anxiety F41.9 [facility] [address] [facility] [id number] [address] [place] [id number] Apr, Anxiety F41.9 and Strain of right shoulder, subsequent encounter S46.911D [facility] [address] [id number] [address] [place] [phone] Apr, [facility] [address] [id number] [address] [place] [id number] March, [facility] [address] [id number] [address] [place] [id number] March, Anxiety F41.9 and Strain of right shoulder, subsequent encounter S46.911D [facility] [address] [id number] [address] [place] [id number] Feb, Anxiety F41.9 and Strain of right shoulder, subsequent encounter S46.911D [facility] [address] [id number] [address] [place] [id number] Jan, Anxiety F41.9 and Strain of right shoulder, subsequent encounter S46.911D [facility] [address] [id number] [address] [place] [phone] Jan, Via [facility] [address] [place] [id number] Jan, Neurogenic bladder N31.9 [facility] [address] [id number] [address] [place] [id number] Dec, [facility] [address] [id number] [address] [place] [id number] Dec, [facility] [address] [id number] [address] [place] [phone] Dec, Anxiety F41.9 and Strain of right shoulder, subsequent encounter S46.911D [facility] [address] [id number] [address] [place] [id number] 10 Dec, 2019 Other iron deficiency anemia D50.8 [facility] [address] [id number] [address] [place] [id number] Dec, [facility] [address] [place] [id number] 04 Dec, 2019 Encounter for suprapubic catheter care Z 43.5 and Microcytic anemia D50.9 [facility] [address] [id number] [address] [place] [id number] 03 Dec, 2019 [facility] [address] [id number] [address] [place] [phone] Nov, Anxiety F41.9 and Strain of right shoulder, subsequent encounter S46.911D [facility] [address] [id number] [address] [place] [id number] Nov, Hypertension I10 [facility] [address] [place] [id number] Nov, Pneumonia of both lungs due to infectiou s organism, unspecified part of lung J18.9 and Suprapubic catheter Z93.59 [facility] [address] [id number] [address] [place] [id number] Nov, Hypertension I10 and Reactiv e depression F32.9 [facility] [address] [id number] [address] [place] [id number] Oct, Strain of right shoulder, scherer bsequent encounter S46.911D and Anxiety F41.9 [facility] [address] [id number] [address] [place] [id number] Oct, Via [facility] [employer] [address] [place] [id number] Oct, Suprapubic catheter Z93.59 and Candidias is, intertriginous B37.2 [facility] [address] [id number] [address] [place] [id number] Oct, Suprapubic catheter Z93.59 [facility] [address] [id number] [address] [place] [id number] Oct, Anxiety F41.9 and Strain of right shoulder, subsequent encounter S46.911D [facility] [address] [id number] [address] [place] [id number] Sep, [facility] [address] [id number] [address] [place] [phone] Sep, [facility] [address] [id number] [address] [place] [id number] Sep, Via [facility] [address] [place] [id number] Sep, Suprapubic catheter Z93.59 [facility] [address] [id number] [address] [place] [id number] Sep, Anxiety F41.9 and Strain of right shoulder, subsequent encounter S46.911D [facility] [address] [id number] [address] [place] [id number] Aug, [facility] [address] [id number] [address] [place] [id number] Aug, [facility] [address] [id number] [address] [place] [id number] Aug, Anxiety F41.9 and Strain of right shoulder, subsequent encounter S46.911D Via [facility] [address] [place] [id number] Aug, Suprapubic catheter Z93.59 [facility] [address] [id number] [address] [place] [id number] Jul, Strain of right shoulder, scherer bsequent encounter S46.911D and Anxiety F41.9 [facility] [address] [id number] [address] [place] [phone] Jul, Anxiety F41.9 [facility] [address] [id number] [address] [place] [phone] Jun, [facility] [address] [id number] [address] [place] [phone] Jun, [facility] [address] [id number] [address] [place] [id number] Jun, [facility] [address] [id number] [address] [place] [id number] Jun, Strain of right shoulder, scherer bsequent encounter S46.911D [facility] [facility] [address] [id number] [address] [place] [id number] Jun, Strain of right shoulder, scherer bsequent encounter S46.911D [facility] [address] [id number] [address] [place] [id number] Jun, Anxiety F41.9 Via [facility] [address] [place] [id number] Jun, Neurogenic bladder N31.9 and Anxiety F41 .9 Via [facility] [address] [place] [id number] May, Anxiety F41.9 [facility] [address] [id number] [address] [place] [id number] May, Dysuria R30.0 [facility] [address] [id number] [address] [place] [id number] May, Strain of right shoulder, scherer bsequent encounter S46.911D and Anxiety F41.9 [facility] [address] [id number] [address] [place] [id number] Apr, Via [facility] [address] [place] [id number] Apr, Strain of right shoulder, subsequent enc ounter S46.911D [facility] [address] [id number] [address] [place] [id number] 14 Apr, 2019 Strain of right shoulder, scherer bsequent encounter S46.911D and Anxiety F41.9 Via [facility] [address] [place] [id number] Apr, Type 2 diabetes mellitus without complic ation, without long-term current use of insulin E11.9 and Neurogenic bladder N31.9 Via [facility] [address] [place] [id number] Apr, Strain of right shoulder, subsequent enc ounter S46.911D ; History of GI bleed Z87.19 ; Neurogenic bladder N31.9 and Reactive depression F32.9 [facility] [address] [id number] [address] [place] [address] Apr, Acute pain of left shoulder M25.512 [facility] [address] [id number] [address] [place] [id number] Apr, [facility] [address] [id number] [address] [place] [id number] Apr, 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 F41.9 and 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 [facility] [employer] [address] [place] [id number] March, Gastrointestinal hemorrhage associated w ith acute gastritis K29.01 [facility] [address] [id number] [address] [place] [id number] March, Via [facility] [address] [place] [id number] March, Bronchitis J40 [facility] [address] [id number] [address] [place] [id number] March, Cough R05 [facility] [address] [id number] [address] [place] [address] March, Other chronic pain G89.29 [facility] [address] [id number] [address] [place] [phone] March, Anxiety F41.9 [facility] [address] [id number] [address] [place] [id number] March, [facility] [address] [id number] [address] [place] [id number] Feb, Other chronic pain G89.29 [facility] [address] [id number] [address] [place] [id number] Feb, Anxiety F41.9 [facility] [address] [id number] [address] [place] [id number] Feb, Other chronic pain G89.29 [facility] [address] [place] [id number] Feb, Neurogenic bladder N31.9 and Suprapubic catheter Z93.59 [facility] [address] [id number] [address] [place] [phone] Jan, Anxiety F41.9 [facility] [address] [id number] [address] [place] [phone] Dec, Anxiety F41.9 [facility] [address] [id number] [address] [place] [id number] Dec, Other chronic pain G89.29 an d Anxiety F41.9 [facility] [address] [id number] [address] [place] [id number] Dec, Via [facility] [address] [place] [id number] Dec, Neurogenic bladder N31.9 and Suprapubic catheter Z93.59 [facility] [address] [id number] [address] [place] [phone] Nov, Other chronic pain G89.29 an d Anxiety F41.9 [facility] [address] [id number] [address] [place] [id number] Nov, Via [facility] [address] [place] [id number] Nov, Suprapubic catheter Z93.59 [facility] [address] [id number] [address] [place] [id number] Oct, Other chronic pain G89.29 an d Anxiety F41.9 [facility] [address] [id number] [address] [place] [id number] Oct, [facility] [address] [id number] [address] [place] [id number] Oct, Suprapubic catheter Z93.59 [facility] [address] [id number] [address] [place] [id number] Oct, Via [facility] [address] [place] [id number] Oct, [facility] [address] [id number] [address] [place] [id number] Oct, Anxiety F41.9 [facility] [address] [id number] [address] [place] [id number] Oct, Anxiety F41.9 Via [facility] [address] [place] [id number] Oct, Other chronic pain G89.29 [facility] [address] [id number] [address] [place] [id number] Sep, Other chronic pain G89.29 Via [facility] [address] [place] [id number] Sep, Suprapubic catheter Z93.59 and Cervicalg ia M54.2 [facility] [address] [id number] [address] [place] [id number] Sep, [facility] [address] [id number] [address] [place] [id number] Sep, [facility] [address] [id number] [address] [place] [id number] Sep, Via [facility] [address] [place] [id number] Aug, Cystitis N30.90 [facility] [address] [id number] [address] [place] [id number] Aug, [facility] [address] [id number] [address] [place] [id number] Aug, Other chronic pain G89.29 [facility] [address] [id number] [address] [place] [id number] Aug, Via [facility] [address] [place] [id number] Aug, Encounter for suprapubic catheter care Z 43.5 [facility] [address] [id number] [address] [place] [id number] Jul, Via [facility] [address] [place] [id number] Jul, [facility] [address] [id number] [address] [place] [id number] Jul, Other chronic pain G89.29 [facility] [address] [id number] [address] [place] [id number] Jul, [facility] [address] [id number] [address] [place] [id number] Jul, Via [facility] [address] [place] [id number] Jun, 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 [place] [address] [id number] [address] [place] [phone] Jun, Other chronic pain G89.29 [place] [facility] [address] [id number] [address] [place] [address] Jun, Via [facility] [address] [place] [id number] May, Anxiety F41.9 ; Type 2 diabetes mellitus without complication, without long-term current use of insulin E11.9 ; Hypertension I10 ; Low back pain M54.5 ; Paroxysmal atrial fibrillation I48.0 and 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 [place] [address] [id number] [address] [place] [address] May, Other chronic pain G89.29 Via [facility] [address] [place] [id number] May, Low back pain M54.5 [place] [address] [id number] [address] [place] [id number] May, [facility] [address] [id number] [address] [place] [address] Apr, Other chronic pain G89.29 [facility] [address] [id number] [address] [place] [address] Apr, [facility] [address] [id number] [address] [place] [address] Apr, Via [facility] [address] [place] [id number] 19 Apr, 2018 Closed compression fracture of L3 lumbar vertebra with routine healing, subsequent encounter S32.030D [facility] [address] [place] [id number] 14 Apr, 2018 Low back pain M54.5 Via [facility] [address] [place] [id number] 12 Apr, 2018 Coccydynia M53.3 [facility] [address] [id number] [address] [place] [address] March, [facility] [address] [id number] [address] [place] [id number] March, Other chronic pain G89.29 [facility] [address] [id number] [address] [place] [address] March, [facility] [address] [id number] [address] [place] [address] March, [facility] [address] [id number] [address] [place] [id number] Feb, [facility] [address] [id number] [address] [place] [address] Feb, Other chronic pain G89.29 Via [facility] [address] [place] [id number] Feb, Other chronic pain G89.29 and Anxiety F4 1.9 [facility] [address] [id number] [address] [place] [id number] Feb, [facility] [address] [id number] [address] [place] [id number] Jan, [facility] [address] [id number] [address] [place] [phone] Jan, [facility] [address] [facility] [id number] [address] [place] [id number] Jan, [facility] [address] [facility] [id number] [address] [place] [id number] Jan, [facility] [address] [facility] [id number] [address] [place] [address] Dec, Via [facility] [address] [place] [id number] Dec, Peripheral vascular disease I73.9 ; 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 ; Other chronic pain G89.29 ; Anxiety F41.9 ; Reactive depression F32.9 ; Insomnia G47.00 and Type 2 diabetes mellitus without complication, without long-term current use of insulin E11.9 [facility] [address] [place] [address] [id number] [place] [address] Nov, [facility] [address] [id number] [place] [id number] Nov, Anxiety F41.9 [facility] [address] [facility] [id number] [address] [place] [phone] Nov, [facility] [address] [id number] [place] [id number] Nov, Anxiety F41.9 [facility] [address] [place] [id number] Nov, Status post surgery Z98.890 ; Confused R 41.0 ; Anxiety F41.9 and Other chronic pain G89.29 [facility] [address] [id number] [place] [id number] Nov, Other chronic pain G89.29 [facility] [address] [facility] [id number] [address] [place] [id number] Oct, [facility] [address] [id number] [id number] Oct, Other chronic pain G89.29 [facility] [address] [id number] [address] [place] [address] Oct, Anxiety F41.9 [facility] [id number] [place] [id number] Sep, Other chronic pain G89.29 [facility] [id number] [place] [id number] Sep, Via [facility] [facility] [employer] [address] [place] [id number] Aug, Dysuria R30.0 and Anxiety F41.9 [facility] [address] [id number] [address] [place] [id number] Aug, [facility] [address] [id number] [place] [id number] Aug, Other chronic pain G89.29 [facility] [address] [facility] [id number] [address] [place] [id number] Jul, Other chronic pain G89.29 [facility] [address] [id number] [place] [id number] Jun, [facility] [address] [id number] [place] [id number] Jun, Other chronic pain G89.29 [facility] [address] [facility] [id number] [address] [place] [id number] Jun, [facility] [address] [facility] [id number] [address] [place] [phone] May, Other chronic pain G89.29 [facility] [address] [facility] [id number] [address] [place] [id number] Apr, Other chronic pain G89.29 [facility] [address] [place] [id number] Apr, Reactive depression F32.9 and Pharyngeal dysphagia R13.13 [facility] [address] [id number] [address] [place] [id number] Apr, Urinary tract infection with out hematuria, site unspecified N39.0 [facility] [address] [id number] [address] [place] [address] March, Other chronic pain G89.29 [facility] [address] [facility] [id number] [address] [place] [id number] Feb, Other chronic pain G89.29 [facility] [address] [id number] [address] [place] [id number] Feb, [facility] [address] [id number] [place] [id number] Feb, Via [facility] [employer] [address] [place] [id number] Feb, Dysuria R30.0 and Ventral hernia without obstruction or gangrene K43.9 [facility] [address] [facility] [id number] [address] [place] [address] Jan, Other chronic pain G89.29 [facility] [address] [id number] [place] [id number] Dec, Other chronic pain G89.29 [facility] [address] [id number] [address] [place] [id number] Nov, Other chronic pain G89.29 [facility] [address] [place] [id number] Nov, Lymphadenitis I88.9 [facility] [address] [id number] [address] [place] [phone] Nov, Other chronic pain G89.29 [facility] [address] [id number] [address] [place] [phone] Nov, [facility] [address] [id number] [place] [id number] Nov, Other chronic pain G89.29 [facility] [address] [place] [id number] Oct, Low back pain M54.5 ; Hypertension I10 a nd Type 2 diabetes mellitus without complication, without long-term current use of insulin E11.9 [facility] [address] [id number] [address] [place] [id number] Oct, [facility] [address] [id number] [address] [place] [id number] Oct, [facility] [address] [id number] [address] [place] [id number] Oct, [facility] [address] [id number] [address] [place] [id number] Oct, [facility] [address] [id number] [address] [place] [phone] Sep, [facility] [address] [id number] [address] [place] [id number] Sep, [facility] [address] [id number] [address] [place] [id number] Aug, Other chronic pain G89.29 [facility] [address] [id number] [address] [place] [id number] Jul, [facility] [address] [id number] [address] [place] [id number] Jul, [facility] [address] [id number] [address] [place] [id number] Jul, [facility] [address] [id number] [address] [place] [id number] Jun, [facility] [address] [id number] [address] [place] [id number] Jun, [facility] [address] [place] [id number] Jun, Low back pain M54.5 ; Other chronic pain G89.29 and Coronary artery disease I25.10 [facility] [address] [id number] [address] [place] [address] Jun, [facility] [address] [id number] [address] [place] [address] May, [facility] [address] [id number] [address] [place] [address] May, [facility] [address] [id number] [address] [place] [address] May, Other chronic pain G89.29 [facility] [address] [id number] [address] [place] [id number] May, [facility] [address] [id number] [address] [place] [address] Apr, [facility] [address] [id number] [address] [place] [id number] 17 Apr, 2016 Acute cystitis without hemat uria N30.00 [facility] [address] [id number] [address] [place] [id number] 16 Apr, 2016 Acute cystitis without hemat uria N30.00 ; Coronary artery disease I25.10 ; Low back pain M54.5 and Other chronic pain G89.29 [facility] [address] [id number] [address] [place] [address] Apr, Other chronic pain G89.29 [facility] [address] [id number] [address] [place] [address] March, Other chronic pain G89.29 [facility] [address] [id number] [address] [place] [address] 18 Feb, 2016 [facility] [address] [id number] [address] [place] [id number] Feb, Arthritis M19.90 [facility] [address] [id number] [address] [place] [phone] Feb, [facility] [address] [id number] [address] [place] [phone] Jan, [facility] [address] [id number] [address] [place] [id number] Jan, [facility] [address] [id number] [address] [place] [address] Jan, Other chronic pain G89.29 [facility] [address] [id number] [address] [place] [id number] Jan, Hypertension I10 ; Coronary artery disease I25.10 and Insomnia G47.00 [facility] [address] [id number] [address] [place] [id number] Jan, [facility] [address] [id number] [address] [place] [id number] Dec, Right hip pain M25.551 [facility] [address] [id number] [address] [place] [id number] Dec, [facility] [address] [id number] [address] [place] [id number] Dec, [facility] [address] [id number] [address] [place] [id number] Dec, [facility] [address] [id number] [address] [place] [id number] Dec, Other chronic pain G89.29 [facility] [address] [id number] [address] [place] [id number] Dec, [facility] [address] [id number] [address] [place] [id number] Nov, [facility] [address] [id number] [address] [place] [id number] Nov, Other chronic pain G89.29 [facility] [address] [id number] [address] [place] [address] Nov, Right hip pain M25.551 and C oronary artery disease I25.10 [facility] [address] [id number] [address] [place] [address] Nov, Other chronic pain G89.29 [facility] [address] [id number] [address] [place] [phone] Oct, [facility] [address] [id number] [address] [place] [id number] Oct, [facility] [address] [id number] [address] [place] [phone] Sep, [facility] [address] [id number] [address] [place] [phone] Sep, [facility] [address] [id number] [address] [place] [id number] Aug, [facility] [address] [facility] [id number] [address] [place] [id number] Aug, Hypertension I10 ; Coronary artery disease I25.10 and Arthritis M19.90 [facility] [address] [id number] [address] [place] [id number] Jun, [facility] [address] [id number] [address] [place] [id number] Jun, Essential hypertension, jayson gn 401.1 ; Other chronic pain 338.29 and Chronic airway obstruction, not elsewhere classified 496 [facility] [address] [id number] [address] [place] [id number] Jun, [facility] [address] [id number] [address] [place] [phone] Jun, [facility] [address] [id number] [address] [place] [id number] Jun, [facility] [address] [id number] [address] [place] [phone] May, [facility] [address] [facility] [id number] [address] [place] [id number] May, [facility] [address] [id number] [address] [place] [address] [place] [address] Apr, [facility] [address] [id number] [address] [place] [address], [place] [address] Apr, [facility] [address] [id number] [address] [place] [address], [place] [address] Apr, [facility] [address] [id number] [address] [place] [address], [place] [address] March, [facility] [address] [id number] [address] [place] [address], [place] [address] March, [facility] [address] [id number] [address] [place] [address], [place] [address] March, [facility] [address] [id number] [address] [place] [address], [place] [address] March, [facility] [address] [id number] [address] [place] [address], [place] [address] March, Sialadenitis 527.2 [facility] [address] [id number] [address] [place] [address], [place] [address] Feb, [facility] [address] [id number] [address] [place] [address], [place] [address] Feb, [facility] [address] [id number] [address] [place] [address], [place] [address] Feb, [facility] [address] [id number] [address] [place] [address], [place] [address] 14 Feb, 2015 [facility] [address] [id number] [address] [place] [address], [place] [address] Feb, [facility] [address] [id number] [address] [place] [address], [place] [address] Jan, [facility] [address] [id number] [address] [place] [address], [place] [address] Jan, [facility] [address] [id number] [address] [place] [address], [place] [address] Jan, [facility] [address] [id number] [address] [place] [address], [place] [address] Jan, [facility] [address] [id number] [address] [place] [address], [place] [address] Jan, [facility] [address] [id number] [address] [place] [address], [place] [address] Jan, [facility] [address] [id number] [address] [place] [address], [place] [address] Dec, [facility] [address] [id number] [address] [place] [address], [place] [address] Dec, [facility] [address] [id number] [address] [place] [address], [place] [address] Dec, [facility] [address] [id number] [address] [place] [address], [place] [address] Dec, [facility] [address] [id number] [address] [place] [address], [place] [address] Dec, [facility] [address] [id number] [address] [place] [address], [place] [address] Dec, [facility] [address] [id number] [address] [place] [address], [place] [address] Nov, [facility] [address] [id number] [address] [place] [address], [place] [address] Nov, [facility] [address] [id number] [address] [place] [address], [place] [address] Nov, [facility] [address] [id number] [address] [place] [address], [place] [address] Nov, [facility] [address] [id number] [address] [place] [address], [place] [address] Nov, [facility] [address] [id number] [address] [place] [address], [place] [address] Nov, [facility] [address] [id number] [address] [place] [address], [place] [address] Nov, [facility] [address] [id number] [address] [place] [address], [place] [address] Nov, [facility] [address] [id number] [address] [place] [address], [place] [address] Nov, [facility] [address] [id number] [address] [place] [address], [place] [address] Nov, [facility] [address] [id number] [address] [place] [address], [place] [address] Nov, [facility] [address] [id number] [address] [place] [address], [place] [address] Nov, [facility] [address] [id number] [address] [place] [address], [place] [address] Nov, [facility] [address] [id number] [address] [place] [address], [place] [address] Nov, [facility] [address] [id number] [address] [place] [address], [place] [address] Oct, [facility] [address] [id number] [address] [place] [address], [place] [address] Oct, [facility] [address] [id number] [address] [place] [address], [place] [address] 19 Oct, 2014 [facility] [address] [id number] [address] [place] [address], [place] [address] 18 Oct, 2014 [facility] [address] [id number] [address] [place] [address], [place] [address] 18 Oct, 2014 [facility] [address] [id number] [address] [place] [address], [place] [address] 17 Oct, 2014 [facility] [address] [id number] [address] [place] [address], [place] [address] 17 Oct, 2014 [facility] [address] [id number] [address] [place] [address], [place] [address] Oct, [facility] [address] [id number] [address] [place] [address], [place] [address] Oct, [facility] [address] [id number] [address] [place] [address], [place] [address] Sep, [facility] [address] [id number] [address] [place] [address], [place] [address] Sep, [facility] [address] [id number] [address] [place] [address], [place] [address] Sep, [facility] [address] [id number] [address] [place] [address], [place] [address] Sep, [facility] [address] [id number] [address] [place] [address], [place] [address] Sep, [facility] [address] [id number] [address] [place] [address], [place] [address] Sep, [facility] [address] [id number] [address] [place] [address], [place] [address] Sep, [facility] [address] [id number] [address] [place] [address], [place] [address] Sep, [facility] [address] [id number] [address] [place] [address], [place] [address] Sep, [facility] [address] [id number] [address] [place] [address], [place] [address] Sep, [facility] [address] [id number] [address] [place] [address], [place] [address] Sep, [facility] [address] [id number] [address] [place] [address], [place] [address] Sep, [facility] [address] [id number] [address] [place] [address], [place] [address] Aug, [facility] [address] [id number] [address] [place] [address], [place] [address] Aug, [facility] [address] [id number] [address] [place] [address], [place] [address] 29 Aug, 2014 [facility] [address] [id number] [address] [place] [address], [place] [address] 29 Aug, 2014 [facility] [address] [id number] [address] [place] [address], [place] [address] 28 Aug, 2014 [facility] [address] [id number] [address] [place] [address], [place] [address] 28 Aug, 2014 [facility] [address] [id number] [address] [place] [address], [place] [address] Aug, [facility] [address] [id number] [address] [place] [address], [place] [address] 17 Aug, 2014 [facility] [address] [id number] [address] [place] [address], [place] [address] 30 Jul, 2013 [facility] [address] [id number] [address] [place] [address], [place] [address] 30 Jul, 2013 [facility] [address] [id number] [address] [place] [address], [place] [address] 30 Jul, 2013 [facility] [address] [id number] [address] [place] [address], [place] [address] 30 Jul, 2013 [facility] [address] [id number] [address] [place] [address], [place] [address] 25 Sep, 2013 [facility] [address] [id number] [address] [place] [address], [place] [address] 25 Sep, 2013 [facility] [address] [id number] [address] [place] [address], [place] [address] 15 Sep, 2013 [facility] [address] [id number] [address] [place] [address], [place] [address] 15 Sep, 2013 [facility] [address] [id number] [address] [place] [address], [place] [address] 11 Jul, 2013 [facility] [address] [id number] [address] [place] [address], [place] [address] 11 Jul, 2013 [facility] [address] [id number] [facility] [place] [address] Jun, [facility] [address] [id number] [facility] [place] [address] Jun, [facility] [address] [id number] [facility] [place] [address] Jun, [facility] [address] [id number] [address] [place] [address], [place] [address] Jun, [facility] [address] [id number] [address] [place] [address], [place] [address] Jun, [facility] [address] [id number] [address] [place] [address], [place] [address] Jun, [facility] [address] [id number] [address] [place] [address], [place] [address] Jun, [facility] [address] [id number] [address] [place] [address], [place] [address] Jun, [facility] [address] [id number] [address] [place] [address], [place] [address] Jun, [facility] [address] [id number] [address] [place] [address], [place] [address] Jun, [facility] [address] [id number] [address] [place] [address], [place] [address] Jun, [facility] [address] [id number] [address] [place] [address], [place] [address] Jun, [facility] [address] [id number] [address] [place] [address], [place] [address] Jun, [facility] [address] [id number] [address] [place] [address], [place] [address] Jun, [facility] [address] [id number] [address] [place] [address], [place] [address] Jun, [facility] [address] [id number] [address] [place] [address], [place] [address] Jun, [facility] [address] [id number] [facility] [place] [address] Jun, [facility] [address] [id number] [facility] [place] [address] Jun, [facility] [address] [id number] [facility] [place] [address] Jun, [facility] [address] [id number] [address] [place] [address], [place] [address] Jun, [facility] [address] [id number] [address] [place] [address], [place] [address] Jun, [facility] [address] [id number] [address] [place] [address], [place] [address] Jun, [facility] [address] [id number] [address] [place] [address], [place] [address] May, [facility] [address] [id number] [address] [place] [address], [place] [address] May, [facility] [address] [id number] [address] [place] [address], [place] [address] May, [facility] [address] [id number] [address] [place] [address], [place] [address] May, [facility] [address] [id number] [address] [place] [address], [place] [address] May, [facility] [address] [id number] [address] [place] [address], [place] [address] May, [facility] [address] [id number] [address] [place] [address], [place] [address] May, [facility] [address] [id number] [address] [place] [address], [place] [address] May, [facility] [address] [id number] [address] [place] [address], [place] [address] May, [facility] [address] [id number] [address] [place] [address], [place] [address] May, [facility] [address] [id number] [facility] [place] [address] May, [facility] [address] [id number] [address] [place] [address], [place] [address] May, [facility] [address] [id number] [address] [place] [address], [place] [address] May, [facility] [address] [id number] [address] [place] [address], [place] [address] Apr, [facility] [address] [id number] [address] [place] [address], [place] [address] Apr, [facility] [address] [id number] [address] [place] [address], [place] [address] Apr, [facility] [address] [id number] [address] [place] [address], [place] [address] Apr, [facility] [address] [id number] [address] [place] [address], [place] [address] Apr, [facility] [address] [id number] [address] [place] [address], [place] [address] Apr, [facility] [address] [id number] [address] [place] [address], [place] [address] Apr, [facility] [address] [id number] [address] [place] [address], [place] [address] Apr, [facility] [address] [id number] [address] [place] [address], [place] [address] Apr, [facility] [address] [id number] [address] [place] [address], [place] [address] March, [facility] [address] [id number] [address] [place] [address], [place] [address] March, [facility] [address] [id number] [address] [place] [address], [place] [address] March, [facility] [address] [id number] [address] [place] [address] March, [facility] [address] [id number] [address] [place] [address], [place] [address] March, [facility] [address] [id number] [address] [place] [address], [place] [address] March, [facility] [address] [id number] [address] [place] [address], [place] [address] March, [facility] [address] [id number] [address] [place] [address], [place] [address] March, [facility] [address] [id number] [address] [place] [address], [place] [address] March, [facility] [address] [id number] [address] [place] [address], [place] [address] March, [facility] [address] [id number] [address] [place] [address], [place] [address] March, [facility] [address] [id number] [address] [place] [address], [place] [address] March, [facility] [address] [id number] [address] [place] [address], [place] [address] March, [facility] [address] [id number] [address] [place] [address], [place] [address] March, [facility] [address] [id number] [address] [place] [address], [place] [address] March, [facility] [address] [id number] [address] [place] [address], [place] [address] March, [facility] [address] [id number] [address] [place] [address], [place] [address] March, [facility] [address] [id number] [address] [place] [address], [place] [address] March, [facility] [address] [id number] [address] [place] [address], [place] [address] March, [facility] [address] [id number] [address] [place] [address] March, [facility] [address] [id number] [address] [place] [address], [place] [address] Feb, [facility] [address] [id number] [address] [place] [address], [place] [address] Feb, [facility] [address] [id number] [address] [place] [address], [place] [address] Feb, [facility] [address] [id number] [address] [place] [address], [place] [address] Feb, [facility] [address] [id number] [address] [place] [address], [place] [address] Feb, [facility] [address] [id number] [address] [place] [address], [place] [address] Feb, [facility] [address] [id number] [address] [place] [address], [place] [address] Feb, [facility] [address] [id number] [address] [place] [address], [place] [address] Feb, [facility] [address] [id number] [address] [place] [address], [place] [address] Jan, [facility] [address] [id number] [address] [place] [address], [place] [address] Jan, [facility] [address] [id number] [address] [place] [address], [place] [address] 24 Jan, 2014 [facility] [address] [id number] [address] [place] [address], [place] [address] 24 Jan, 2014 [facility] [address] [id number] [address] [place] [address], [place] [address] Jan, [facility] [address] [id number] [address] [place] [address], [place] [address] Jan, [facility] [address] [id number] [address] [place] [address] Jan, [facility] [address] [id number] [address] [place] [address], [place] [address] Jan, [facility] [address] [id number] [address] [place] [address], [place] [address] Jan, [facility] [address] [id number] [address] [place] [address], [place] [address] Jan, [facility] [address] [id number] [address] [place] [address], [place] [address] Dec, [facility] [address] [id number] [address] [place] [address], [place] [address] Dec, [facility] [address] [id number] [address] [place] [address], [place] [address] Dec, [facility] [address] [id number] [address] [place] [address], [place] [address] Dec, [facility] [address] [id number] [address] [place] [address], [place] [address] Dec, [facility] [address] [id number] [address] [place] [address], [place] [address] Dec, [facility] [address] [id number] [address] [place] [address], [place] [address] Dec, [facility] [address] [id number] [address] [place] [address], [place] [address] Dec, [facility] [address] [id number] [address] [place] [address], [place] [address] Nov, [facility] [address] [id number] [address] [place] [address], [place] [address] Nov, [facility] [address] [id number] [address] [place] [address], [place] [address] Nov, [facility] [address] [id number] [address] [place] [address], [place] [address] Nov, [facility] [address] [id number] [address] [place] [address], [place] [address] Nov, [facility] [address] [id number] [address] [place] [address], [place] [address] Nov, [facility] [address] [id number] [address] [place] [address], [place] [address] Nov, [facility] [address] [id number] [address] [place] [address], [place] [address] Nov, [facility] [address] [id number] [address] [place] [address], [place] [address] Nov, [facility] [address] [id number] [address] [place] [address], [place] [address] Nov, [facility] [address] [id number] [address] [place] [address], [place] [address] Nov, [facility] [address] [id number] [address] [place] [address], [place] [address] Nov, [facility] [address] [id number] [address] [place] [address], [place] [address] Nov, [facility] [address] [id number] [address] [place] [address], [place] [address] Oct, [facility] [address] [id number] [address] [place] [address], [place] [address] Oct, [facility] [address] [id number] [address] [place] [address], [place] [address] Oct, [facility] [address] [id number] [address] [place] [address], [place] [address] Oct, [facility] [address] [id number] [address] [place] [address], [place] [address] Oct, [facility] [address] [id number] [address] [place] [address], [place] [address] Oct, [facility] [address] [id number] [address] [place] [address], [place] [address] 18 Oct, 2012 [facility] [address] [id number] [address] [place] [address], [place] [address] 18 Oct, 2013 [facility] [address] [id number] [address] [place] [address], [place] [address] 17 Oct, 2013 [facility] [address] [id number] [address] [place] [address], [place] [address] 17 Oct, 2013 [facility] [address] [id number] [address] [place] [address], [place] [address] 03 Oct, 2013 [facility] [address] [id number] [address] [place] [address], [place] [address] 03 Oct, 2013 [facility] [address] [id number] [address] [place] [address], [place] [address] 02 Oct, 2013 [facility] [address] [id number] [address] [place] [address], [place] [address] 02 Oct, 2013 [facility] [address] [id number] [address] [place] [address], [place] [address] 14 Sep, 2013 [facility] [address] [id number] [address] [place] [address], [place] [address] 14 Sep, 2013 [facility] [address] [id number] [address] [place] [address], [place] [address] 05 Sep, 2013 [facility] [address] [id number] [address] [place] [address], [place] [address] 05 Sep, 2013 [facility] [address] [id number] [address] [place] [address], [place] [address] Sep, [facility] [address] [id number] [address] [place] [address], [place] [address] Sep, [facility] [address] [id number] [address] [place] [address], [place] [address] Sep, [facility] [address] [id number] [address] [place] [address], [place] [address] Sep, [facility] [address] [id number] [address] [place] [address], [place] [address] Sep, [facility] [address] [id number] [address] [place] [address], [place] [address] Sep, [facility] [address] [id number] [address] [place] [address], [place] [address] Aug, [facility] [address] [id number] [address] [place] [address], [place] [address] Aug, [facility] [address] [id number] [address] [place] [address], [place] [address] Aug, [facility] [address] [id number] [address] [place] [address], [place] [address] Aug, [facility] [address] [id number] [address] [place] [address], [place] [address] Aug, [facility] [address] [id number] [address] [place] [address], [place] [address] Aug, [facility] [address] [id number] [address] [place] [address], [place] [address] Aug, [facility] [address] [id number] [address] [place] [address] Aug, [facility] [address] [id number] [address] [place] [address] Aug, [facility] [address] [id number] [address] [place] [address] Aug, [facility] [address] [id number] [address] [place] [address], [place] [address] Aug, [facility] [address] [id number] [address] [place] [address], [place] [address] Aug, [facility] [address] [id number] [address] [place] [address] Aug, [facility] [address] [id number] [address] [place] [address] 18 Aug, 2013 [facility] [address] [id number] [address] [place] [address], [place] [address] 17 Aug, 2013 [facility] [address] [id number] [address] [place] [address], [place] [address] 14 Aug, 2013 [facility] [address] [id number] [address] [place] [address], [place] [address] 14 Aug, 2013 [facility] [address] [id number] [address] [place] [address], [place] [address] Aug, [facility] [address] [id number] [address] [place] [address], [place] [address] 20 Jul, 2013 [facility] [address] [id number] [address] [place] [address], [place] [address] 19 Jul, 2013 [facility] [address] [id number] [address] [place] [address], [place] [address] 18 Jul, 2013 [facility] [address] [id number] [address] [place] [address], [place] [address] 11 Jul, 2013 [facility] [address] [id number] [address] [place] [address], [place] [address] Jul, [facility] [address] [id number] [address] [place] [address], [place] [address] Jun, [facility] [address] [id number] [address] [place] [address], [place] [address] Jun, [facility] [address] [id number] [address] [place] [address], [place] [address] Jun, [facility] [address] [id number] [address] [place] [address], [place] [address] 15 Jun, 2013 [facility] [address] [id number] [address] [place] [address], [place] [address] 14 Jun, 2013 [facility] [address] [id number] [address] [place] [address], [place] [address] Jun, [facility] [address] [id number] [address] [place] [address], [place] [address] Jun, [facility] [address] [id number] [address] [place] [address], [place] [address] Jun, [facility] [address] [id number] [address] [place] [address], [place] [address] Jun, [facility] [address] [id number] [address] [place] [address], [place] [address] Jun, [facility] [address] [id number] [address] [place] [address], [place] [address] May, [facility] [address] [id number] [address] [place] [address], [place] [address] May, [facility] [address] [id number] [address] [place] [address], [place] [address] May, [facility] [address] [id number] [address] [place] [address], [place] [address] May, [facility] [address] [id number] [address] [place] [address], [place] [address] May, [facility] [address] [id number] [address] [place] [address], [place] [address] May, [facility] [address] [id number] [address] [place] [address], [place] [address] May, [facility] [address] [id number] [address] [place] [address], [place] [address] May, [facility] [address] [id number] [address] [place] [address], [place] [address] May, [facility] [address] [id number] [address] [place] [address], [place] [address] Apr, [facility] [address] [id number] [address] [place] [address], [place] [address] Apr, [facility] [address] [id number] [address] [place] [address], [place] [address] Apr, [facility] [address] [id number] [address] [place] [address], [place] [address] Apr, [facility] [address] [id number] [address] [place] [address], [place] [address] Apr, [facility] [address] [id number] [address] [place] [address], [place] [address] Apr, [facility] [address] [id number] [address] [place] [address], [place] [address] Apr, [facility] [address] [id number] [address] [place] [address], [place] [address] March, [facility] [address] [id number] [address] [place] [address], [place] [address] Feb, [facility] [address] [id number] [address] [place] [address], [place] [address] Feb, [facility] [address] [id number] [address] [place] [address], [place] [address] Feb, [facility] [address] [id number] [address] [place] [address], [place] [address] Jan, [facility] [address] [id number] [address] [place] [address], [place] [address] Jan, [facility] [address] [id number] [address] [place] [address], [place] [address] Jan, [facility] [address] [id number] [address] [place] [address], [place] [address] 14 Jan, 2013 [facility] [address] [id number] [address] [place] [address], [place] [address] 12 Jan, 2013 [facility] [address] [id number] [address] [place] [address], [place] [address] 08 Jan, 2013 [facility] [address] [id number] [address] [place] [address], [place] [address] 07 Jan, 2013 [facility] [address] [id number] [address] [place] [address], [place] [address] 04 Jan, 2013 [facility] [address] [id number] [address] [place] [address], [place] [address] 28 Dec, 2012 [facility] [address] [id number] [address] [place] [address], [place] [address] 25 Dec, 2012 [facility] [address] [id number] [address] [place] [address], [place] [address] 13 Dec, 2012 [facility] [address] [id number] [address] [place] [address], [place] [address] 11 Dec, 2012 [facility] [address] [id number] [address] [place] [address], [place] [address] 07 Dec, 2012 [facility] [address] [id number] [address] [place] [address], [place] [address] 06 Dec, 2012 [facility] [address] [id number] [address] [place] [address], [place] [address] 05 Dec, 2012 [facility] [address] [id number] [address] [place] [address], [place] [address] Nov, [facility] [address] [id number] [address] [place] [address], [place] [address] 24 Nov, 2012 [facility] [address] [id number] [address] [place] [address], [place] [address] 18 Nov, 2012 [facility] [address] [id number] [address] [place] [address], [place] [address] 15 Nov, 2012 [facility] [address] [id number] [address] [place] [address], [place] [address] Nov, [facility] [address] [id number] [address] [place] [address], [place] [address] Nov, [facility] [address] [id number] [address] [place] [address], [place] [address] 02 Nov, 2012 [facility] [address] [id number] [address] [place] [address], [place] [address] Oct, [facility] [address] [id number] [address] [place] [address], [place] [address] Oct, [facility] [address] [id number] [address] [place] [address], [place] [address] Oct, [facility] [address] [id number] [address] [place] [address], [place] [address] Oct, [facility] [address] [id number] [address] [place] [address], [place] [address] Oct, [facility] [address] [id number] [address] [place] [address], [place] [address] Oct, [facility] [address] [id number] [address] [place] [address], [place] [address] Oct, [facility] [address] [id number] [address] [place] [address], [place] [address] Oct, [facility] [address] [id number] [address] [place] [address], [place] [address] Oct, [facility] [address] [id number] [address] [place] [address], [place] [address] Oct, [facility] [address] [id number] [address] [place] [address], [place] [address] Oct, [facility] [address] [id number] [address] [place] [address], [place] [address] Oct, [facility] [address] [id number] [address] [place] [address], [place] [address] Sep, [facility] [address] [id number] [address] [place] [address], [place] [address] Sep, [facility] [address] [id number] [address] [place] [address], [place] [address] Sep, [facility] [address] [id number] [address] [place] [address], [place] [address] Sep, [facility] [address] [id number] [address] [place] [address] Sep, [facility] [address] [id number] [address] [place] [address], [place] [address] Sep, [facility] [address] [id number] [address] [place] [address] Sep, [facility] [address] [id number] [address] [place] [address] Sep, [facility] [address] [id number] [address] [place] [address] Sep, [facility] [address] [id number] [address] [place] [address] Sep, [facility] [address] [id number] [address] [place] [address] Sep, [facility] [address] [id number] [address] [place] [address] Aug, [facility] [address] [id number] [address] [place] [address] Aug, [facility] [address] [id number] [address] [place] [address] Aug, [facility] [address] [id number] [address] [place] [address] Aug, [facility] [address] [id number] [address] [place] [address] Aug, [facility] [address] [id number] [address] [place] [address] Aug, [facility] [address] [id number] [address] [place] [id number] Aug, [facility] [address] [id number] [address] [place] [address] Aug, [facility] [address] [id number] [address] [place] [address] Aug, [facility] [address] [id number] [facility] [place] [address] Aug, [facility] [address] [id number] [facility] [place] [address] 22 Jul, 2012 [facility] [address] [id number] [address] [place] [address], [place] [address] Jul, [facility] [place] [facility] [address] [id number] [address] [place] [address], [place] [address] Jul, [facility] [place] [facility] [address] [id number] [address] [place] [address], [place] [address] Jul, [facility] [place] [facility] [address] [id number] [address] [place] [address], [place] [address] Jun, [facility] [place] [facility] [address] [id number] [address] [place] [address], [place] [address] Jun, [facility] [place] [facility] [address] [id number] [address] [place] [address], [place] [address] Jun, [facility] [address] [id number] [address] [place] [address], [place] [address] Jun, [facility] [place] [facility] [address] [id number] [address] [place] [address], [place] [address] Jun, [facility] [place] [facility] [address] [id number] [address] [place] [address], [place] [address] Jun, [facility] [place] [facility] [address] [id number] [address] [place] [address], [place] [address] Jun, [facility] [place] [facility] [address] [id number] [address] [place] [address], [place] [address] May, [facility] [place] [facility] [address] [id number] [address] [place] [address], [place] [address] May, [facility] [place] [facility] [address] [id number] [address] [place] [address], [place] [address] May, [facility] [place] [facility] [address] [id number] [address] [place] [address], [place] [address] May, [facility] [address] [id number] [address] [place] [address], [place] [address] May, [facility] [address] [id number] [address] [place] [address], [place] [address] Apr, [facility] [address] [id number] [address] [place] [address], [place] [address] Apr, [facility] [address] [id number] [address] [place] [address], [place] [address] Apr, [facility] [address] [id number] [address] [place] [address], [place] [address] Apr, [facility] [address] [id number] [address] [place] [address], [place] [address] Apr, [facility] [address] [id number] [address] [place] [address], [place] [address] March, [facility] [address] [id number] [address] [place] [address], [place] [address] March, [facility] [address] [id number] [address] [place] [address], [place] [address] March, [facility] [address] [id number] [address] [place] [address], [place] [address] March, [facility] [address] [id number] [address] [place] [address], [place] [address] March, [facility] [address] [id number] [address] [place] [address], [place] [address] March, [facility] [address] [id number] [address] [place] [address], [place] [address] March, [facility] [address] [id number] [address] [place] [address], [place] [address] March, [facility] [address] [id number] [address] [place] [address], [place] [address] March, [facility] [address] [id number] [address] [place] [address], [place] [address] March, [facility] [address] [id number] [address] [place] [address], [place] [address] 30 Feb, 2012 [facility] [address] [id number] [address] [place] [address], [place] [address] Feb, [facility] [address] [id number] [address] [place] [address], [place] [address] Feb, [facility] [address] [id number] [address] [place] [address], [place] [address] Feb, [facility] [address] [id number] [address] [place] [address], [place] [address] Feb, [facility] [address] [id number] [address] [place] [address], [place] [address] Feb, [facility] [address] [id number] [address] [place] [address], [place] [address] Feb, [facility] [address] [id number] [address] [place] [address], [place] [address] Feb, [facility] [address] [id number] [address] [place] [address], [place] [address] Feb, [facility] [address] [id number] [address] [place] [address], [place] [address] Jan, [facility] [address] [id number] [address] [place] [address], [place] [address] Jan, [facility] [address] [id number] [address] [place] [address], [place] [address] 05 Jan, 2012 [facility] [address] [id number] [address] [place] [address], [place] [address] Jan, [facility] [address] [id number] [address] [place] [address], [place] [address] Dec, [facility] [address] [id number] [address] [place] [address], [place] [address] Dec, [facility] [address] [id number] [address] [place] [address] Nov, [facility] [address] [id number] [address] [place] [id number] Nov, [facility] [address] [id number] [address] [place] [id number] Nov, [facility] [address] [id number] [address] [place] [id number] Nov, [facility] [address] [id number] [address] [place] [phone] Nov, [facility] [address] [id number] [address] [place] [id number] Oct, [facility] [address] [id number] [address] [place] [phone] Oct, [facility] [address] [id number] [address] [place] [phone] Oct, [facility] [address] [id number] [address] [place] [phone] Oct, [facility] [address] [id number] [address] [place] [id number] Oct, [facility] [address] [id number] [address] [place] [phone] Oct, [facility] [address] [id number] [address] [place] [phone] Oct, [facility] [address] [id number] [address] [place] [phone] Oct, [facility] [address] [id number] [address] [place] [phone] Sep, IMMUNIZATIONS No Known Immunizations SOCIAL HISTORY [...] History No Surgical history information Hospitalization History [facility], [place], operated by [facility]- Urosepsis, ab d pain and fever, discharged 11/27/2017 11/26/2017 Hospitalization History [facility]- Went Unrepsonsive, Hit head 2017 Hospitalization History [facility] [place]- Back Pain 05/05/ 8
--- OUTSIDE RECORDS SUMMARY | 2020-06-18 14:36 | XMS REPORT ---
Author Author Sanjuanita Abdul Doctor Organization [facility] Address Unknown Phone Unavailable Care Team Providers Care Change Release Manager Name Role Phone Migration, Doctor Unavailable Unavailable PROBLEMS Type Condition ICD9-CM Code LYF20-EY Code Onset Dates Condition S tatus SNOMED Code Problem Hypertension I10 Active 9856074 3 Problem Hyperlipidemia E78.5 Active 49281 004 Problem Coronary artery disease I25.10 Active 46822779 Problem Low back pain M54.5 Active 860262 009 Problem Other chronic pain G89.29 Active 8 1227969 Problem Ventral hernia without obstruction or gangrene K43 .9 Active 019713812 Problem Type 2 diabetes mellitus wit hout complication, without long-term current use of insulin E11.9 Active 031239885 Problem Anxiety F41.9 Active 20632509 Problem Peripheral vascular disease I73.9 Ac tive 558400933 Problem Insomnia G47.00 Active 477650964 Problem Microcytic anemia D50.9 Active 23 6026038 Problem Pharyngeal dysphagia R13.13 Active 99598689601492 Problem Other iron deficiency anemia D50.8 A ctive 64084524 Problem Reactive depression F32.9 Active 58335533 Problem Paroxysmal atrial fibrillation I48.0 Active 200568830 Problem 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 Active 88924171 Problem Encounter for suprapubic catheter care Z43.5 Active 255336403 Problem Neurogenic bladder N31.9 Active 3 [id number] ALLERGIES No Information ENCOUNTERS Encounter Location Date Diagnosis [facility] [address] [id number] [address] [place] [address] March, [facility] [address] [id number] [address] [place] [address] March, Anxiety F41.9 and Strain of right shoulder, subsequent encounter S46.911D [facility] [address] [id number] [address] [place] [address] Feb, Anxiety F41.9 and Strain of right shoulder, subsequent encounter S46.911D [facility] [address] [id number] [address] [place] [address] 24 Jan, 2020 Anxiety F41.9 and Strain of right shoulder, subsequent encounter S46.911D [facility] [address] [id number] [address] [place] [address] 17 Jan, 2020 Via [facility] [employer] [facility] [address] [place] [id number] Jan, Neurogenic bladder N31.9 [facility] [address] [id number] [address] [place] [address] Dec, 2019 [facility] [address] [id number] [address] [place] [phone] Dec, 2019 [place] [address] [id number] [address] [place] [address] Dec, Anxiety F41.9 and Strain of right shoulder, subsequent encounter S46.911D [facility] [address] [id number] [address] [place] [phone] 10 Dec, 2019 Other iron deficiency anemia D50.8 [facility] [address] [id number] [address] [place] [phone] 04 Dec, 2019 Via [facility] [employer] [address] [place] [id number] Dec, Encounter for suprapubic catheter care Z 43.5 and Microcytic anemia D50.9 [facility] [address] [id number] [address] [place] [phone] 03 Dec, 2019 [facility] [address] [id number] [address] [place] [address] Nov, Anxiety F41.9 and Strain of right shoulder, subsequent encounter S46.911D [facility] [address] [id number] [address] [place] [phone] Nov, Hypertension I10 [facility] [address] [place] [id number] Nov, Pneumonia of both lungs due to infectiou s organism, unspecified part of lung J18.9 and Suprapubic catheter Z93.59 [facility] [address] [id number] [address] [place] [address] Nov, Hypertension I10 and Reactiv e depression F32.9 [facility] [address] [id number] [address] [place] [address] Oct, Strain of right shoulder, scherer bsequent encounter S46.911D and Anxiety F41.9 [place] [address] [id number] [address] [place] [address] Oct, Via [facility] [employer] [address] [place] [id number] Oct, Suprapubic catheter Z93.59 and Candidias is, intertriginous B37.2 [place] [address] [id number] [address] [place] [phone] Oct, Suprapubic catheter Z93.59 [facility] [address] [id number] [address] [place] [address] Oct, Anxiety F41.9 and Strain of right shoulder, subsequent encounter S46.911D [facility] [address] [id number] [address] [place] [phone] Sep, [facility] [address] [id number] [address] [place] [address] Sep, [facility] [address] [id number] [address] [place] [address] Sep, Via [facility] [address] [place] [id number] Sep, Suprapubic catheter Z93.59 [facility] [address] [id number] [address] [place] [address] Sep, Anxiety F41.9 and Strain of right shoulder, subsequent encounter S46.911D [facility] [address] [id number] [address] [place] [address] Aug, [facility] [address] [id number] [address] [place] [address] Aug, [facility] [address] [id number] [address] [place] [address] Aug, Anxiety F41.9 and Strain of right shoulder, subsequent encounter S46.911D [facility] [address] [place] [id number] Aug, Suprapubic catheter Z93.59 [facility] [address] [id number] [address] [place] [address] Jul, Strain of right shoulder, scherer bsequent encounter S46.911D and Anxiety F41.9 [facility] [address] [id number] [address] [place] [address] Jul, Anxiety F41.9 [facility] [address] [id number] [address] [place] [address] Jun, [facility] [address] [id number] [address] [place] [address] Jun, [facility] [address] [id number] [address] [place] [address] Jun, [facility] [address] [id number] [address] [place] [address] Jun, Strain of right shoulder, scherer bsequent encounter S46.911D [facility] [address] [id number] [address] [place] [address] Jun, Strain of right shoulder, scherer bsequent encounter S46.911D [facility] [address] [id number] [address] [place] [address] Jun, Anxiety F41.9 [facility] [address] [place] [id number] Jun, Neurogenic bladder N31.9 and Anxiety F41 .9 [facility] [address] [place] [id number] May, Anxiety F41.9 [place] [address] [id number] [address] [place] [address] May, Dysuria R30.0 [place] [address] [id number] [address] [place] [address] May, Strain of right shoulder, scherer bsequent encounter S46.911D and Anxiety F41.9 [place] [address] [id number] [address] [place] [address] Apr, [facility] [address] [place] [id number] Apr, Strain of right shoulder, subsequent enc ounter S46.911D [place] [address] [id number] [address] [place] [address] 14 Apr, 2019 Strain of right shoulder, scherer bsequent encounter S46.911D and Anxiety F41.9 Via [facility] [address] [place] [id number] 13 Apr, 2019 Type 2 diabetes mellitus without complic ation, without long-term current use of insulin E11.9 and Neurogenic bladder N31.9 [facility] [address] [place] [id number] Apr, Strain of right shoulder, subsequent enc ounter S46.911D ; History of GI bleed Z87.19 ; Neurogenic bladder N31.9 and Reactive depression F32.9 [place] [address] [id number] [address] [place] [address] 10 Apr, 2019 Acute pain of left shoulder M25.512 [place] [address] [id number] [address] [place] [phone] 07 Apr, 2019 [place] [address] [id number] [address] [place] [address] 06 Apr, 2019 Anxiety F41.9 and 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 [facility] [address] [place] [id number] March, Gastrointestinal hemorrhage associated w ith acute gastritis K29.01 [facility] [address] [id number] [address] [place] [phone] March, Via [employer] [address] [place] [id number] March, Bronchitis J40 [facility] [address] [id number] [address] [place] [address] March, Cough R05 [facility] [address] [id number] [address] [place] [phone] March, Other chronic pain G89.29 [facility] [address] [id number] [address] [place] [address] March, Anxiety F41.9 [facility] [address] [id number] [address] [place] [address] March, [facility] [address] [id number] [address] [place] [address] Feb, Other chronic pain G89.29 [facility] [address] [id number] [address] [place] [address] Feb, Anxiety F41.9 [facility] [address] [id number] [address] [place] [address] Feb, Other chronic pain G89.29 Via [employer] [address] [place] [id number] Feb, Neurogenic bladder N31.9 and Suprapubic catheter Z93.59 [facility] [address] [id number] [address] [place] [address] Jan, Anxiety F41.9 [facility] [address] [id number] [address] [place] [address] Dec, Anxiety F41.9 [facility] [address] [id number] [address] [place] [address] Dec, Other chronic pain G89.29 an d Anxiety F41.9 [facility] [address] [id number] [address] [place] [phone] Dec, Via [employer] [address] [place] [id number] Dec, Neurogenic bladder N31.9 and Suprapubic catheter Z93.59 [facility] [address] [id number] [address] [place] [address] Nov, Other chronic pain G89.29 an d Anxiety F41.9 [facility] [address] [id number] [address] [place] [phone] Nov, Via [employer] [address] [place] [id number] Nov, Suprapubic catheter Z93.59 [facility] [address] [id number] [address] [place] [phone] Oct, Other chronic pain G89.29 an d Anxiety F41.9 [facility] [address] [id number] [address] [place] [address] Oct, [facility] [address] [id number] [address] [place] [address] Oct, Suprapubic catheter Z93.59 [facility] [address] [id number] [address] [place] [phone] Oct, Via [employer] [address] [place] [id number] Oct, [facility] [address] [id number] [address] [place] [address] Oct, Anxiety F41.9 [facility] [address] [id number] [address] [place] [address] Oct, Anxiety F41.9 Via [employer] [address] [place] [id number] Oct, Other chronic pain G89.29 [facility] [address] [id number] [address] [place] [address] 14 Sep, 2018 Other chronic pain G89.29 [facility] [employer] [address] [place] [id number] Sep, Suprapubic catheter Z93.59 and Cervicalg ia M54.2 [facility] [address] [id number] [address] [place] [phone] Sep, [facility] [address] [id number] [address] [place] [address] Sep, [facility] [address] [id number] [address] [place] [address] Sep, Via [employer] [address] [place] [id number] Aug, Cystitis N30.90 [facility] [address] [id number] [address] [place] [address] Aug, [facility] [address] [id number] [address] [place] [address] Aug, Other chronic pain G89.29 [facility] [address] [id number] [address] [place] [address] Aug, Via [employer] [address] [place] [id number] Aug, Encounter for suprapubic catheter care Z 43.5 [facility] [address] [id number] [address] [place] [address] Jul, Via [employer] [address] [place] [id number] Jul, [facility] [address] [id number] [address] [place] [address] Jul, Other chronic pain G89.29 [facility] [address] [id number] [address] [place] [phone] Jul, [facility] [address] [id number] [address] [place] [address] Jul, Via [employer] [address] [place] [id number] Jun, 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 [place] [address] [id number] [address] [place] [address] Jun, Other chronic pain G89.29 [place] [address] [id number] [address] [place] [address] Jun, Via [employer] [address] [place] [id number] May, Anxiety F41.9 ; Type 2 diabetes mellitus without complication, without long-term current use of insulin E11.9 ; Hypertension I10 ; Low back pain M54.5 ; Paroxysmal atrial fibrillation I48.0 and 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 [place] [address] [id number] [address] [place] [address] May, Other chronic pain G89.29 Via [employer] [address] [place] [id number] May, Low back pain M54.5 [place] [address] [id number] [address] [place] [address] May, [place] [address] [id number] [address] [place] [address] Apr, Other chronic pain G89.29 [place] [address] [id number] [address] [place] [address] Apr, [place] [address] [id number] [address] [place] [address] Apr, Via [employer] [address] [place] [id number] Apr, Closed compression fracture of L3 lumbar vertebra with routine healing, subsequent encounter S32.030D [facility] [employer] [address] [place] [id number] Apr, Low back pain M54.5 Via [employer] [address] [place] [id number] Apr, Coccydynia M53.3 [facility] [address] [id number] [address] [place] [address] March, [facility] [address] [id number] [address] [place] [address] March, Other chronic pain G89.29 [facility] [address] [id number] [address] [place] [address] March, [facility] [address] [id number] [address] [place] [address] March, [facility] [address] [id number] [address] [place] [address] Feb, [facility] [address] [id number] [address] [place] [address] Feb, Other chronic pain G89.29 Via [employer] [address] [place] [id number] Feb, Other chronic pain G89.29 and Anxiety F4 1.9 [facility] [address] [id number] [address] [place] [address] Feb, [facility] [address] [id number] [address] [place] [phone] Jan, [facility] [address] [id number] [address] [place] [address] Jan, [facility] [address] [id number] [address] [place] [address] Jan, [facility] [address] [id number] [address] [place] [address] Jan, [facility] [address] [id number] [address] [place] [address] Dec, Via [employer] [address] [place] [id number] Dec, Peripheral vascular disease I73.9 ; 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 ; Other chronic pain G89.29 ; Anxiety F41.9 ; Reactive depression F32.9 ; Insomnia G47.00 and Type 2 diabetes mellitus without complication, without long-term current use of insulin E11.9 [facility] ADRIENNE SANCHEZ [id number] [place] [address] Nov, [facility] [address] [id number] [place] [facility] [place] [place] [id number] Nov, Anxiety F41.9 [facility] [address] [id number] [address] [place] [address] Nov, [place] [address] [id number] [place] [facility] [place] [id number] Nov, Anxiety F41.9 [facility] [employer] [facility] [place] [employer] [address] [place] [id number] Nov, Status post surgery Z98.890 ; Confused R 41.0 ; Anxiety F41.9 and Other chronic pain G89.29 [place] [address] [id number] [place] [id number] Nov, Other chronic pain G89.29 [place] [address] [id number] [address] [place] [address] Oct, [place] [address] [id number] [place] [id number] Oct, Other chronic pain G89.29 [place] [address] [id number] [address] [place] [address] Oct, Anxiety F41.9 [place] [address] [id number] [place] [id number] Sep, Other chronic pain G89.29 [place] [address] [id number] [place] [id number] Sep, [facility] [employer] [facility] [employer] [address] [place] [id number] Aug, Dysuria R30.0 and Anxiety F41.9 [place] [address] [id number] [address] [place] [phone] 16 Aug, 2017 [facility] [address] [id number] [place] [id number] Aug, Other chronic pain G89.29 [facility] [address] [id number] [address] [place] [address] Jul, Other chronic pain G89.29 [facility] [address] [id number] [place] [id number] Jun, [facility] [address] [id number] [place] [id number] Jun, Other chronic pain G89.29 [facility] [address] [id number] [address] [place] [address] Jun, [facility] [address] [id number] [address] [place] [address] May, Other chronic pain G89.29 [facility] [address] [id number] [address] [place] [address] Apr, Other chronic pain G89.29 Via [facility] [address] [place] [id number] Apr, Reactive depression F32.9 and Pharyngeal dysphagia R13.13 [facility] [address] [id number] [address] [place] [address] Apr, Urinary tract infection with out hematuria, site unspecified N39.0 [facility] [address] [id number] [address] [place] [address] March, Other chronic pain G89.29 [facility] [address] [id number] [address] [place] [address] Feb, Other chronic pain G89.29 [facility] [address] [id number] [address] [place] [phone] Feb, [facility] [address] [id number] [place] [id number] Feb, Via [employer] [address] [place] [id number] Feb, Dysuria R30.0 and Ventral hernia without obstruction or gangrene K43.9 [facility] [address] [id number] [address] [place] [phone] Jan, Other chronic pain G89.29 [facility] [address] [id number] [place] [id number] Dec, Other chronic pain G89.29 [facility] [address] [id number] [address] [place] [phone] Nov, Other chronic pain G89.29 [facility] [employer] [address] [place] [id number] Nov, Lymphadenitis I88.9 [facility] [address] [id number] [address] [place] [phone] Nov, Other chronic pain G89.29 [facility] [address] [id number] [address] [place] [phone] Nov, [facility] [address] [id number] [place] [id number] Nov, Other chronic pain G89.29 [facility] [employer] [address] [place] [id number] Oct, Low back pain M54.5 ; Hypertension I10 a nd Type 2 diabetes mellitus without complication, without long-term current use of insulin E11.9 [facility] [address] [id number] [address] [place] [phone] Oct, [facility] [address] [id number] [address] [place] [phone] Oct, [facility] [address] [id number] [address] [place] [phone] Oct, [facility] [address] [id number] [address] [place] [phone] Oct, [facility] [address] [id number] [address] [place] [phone] Sep, [facility] [address] [id number] [address] [place] [phone] Sep, [facility] [address] [id number] [address] [place] [phone] Aug, Other chronic pain G89.29 [facility] [address] [id number] [address] [place] [phone] Jul, [facility] [address] [id number] [address] [place] [phone] Jul, [facility] [address] [id number] [address] [place] [address] Jul, [facility] [address] [id number] [address] [place] [address] Jun, [facility] [address] [id number] [address] [place] [address] Jun, [facility] [address] [place] [id number] Jun, Low back pain M54.5 ; Other chronic pain G89.29 and Coronary artery disease I25.10 [facility] [address] [id number] [address] [place] [address] Jun, [facility] [address] [id number] [address] [place] [address] May, [facility] [address] [id number] [address] [place] [address] May, [facility] [address] [id number] [address] [place] [address] May, Other chronic pain G89.29 [facility] [address] [id number] [address] [place] [address] May, [facility] [address] [id number] [address] [place] [address] 28 Apr, 2016 [facility] [address] [id number] [address] [place] [address] 17 Apr, 2016 Acute cystitis without hemat uria N30.00 [facility] [address] [id number] [address] [place] [address] 16 Apr, 2016 Acute cystitis without hemat uria N30.00 ; Coronary artery disease I25.10 ; Low back pain M54.5 and Other chronic pain G89.29 [facility] [address] [id number] [address] [place] [address] 13 Apr, 2016 Other chronic pain G89.29 [facility] [address] [id number] [address] [place] [address] March, Other chronic pain G89.29 [facility] [address] [id number] [address] [place] [address] 18 Feb, 2016 [facility] [address] [id number] [address] [place] [address] 15 Feb, 2016 Arthritis M19.90 [facility] [address] [id number] [address] [place] [address] Feb, [facility] [address] [id number] [address] [place] [phone] 30 Jan, 2016 [facility] [address] [id number] [address] [place] [address] Jan, [facility] [address] [id number] [address] [place] [address] Jan, Other chronic pain G89.29 [facility] [address] [id number] [address] [place] [address] Jan, Hypertension I10 ; Coronary artery disease I25.10 and Insomnia G47.00 [facility] [address] [id number] [address] [place] [address] Jan, [facility] [address] [id number] [address] [place] [address] Dec, Right hip pain M25.551 [facility] [address] [id number] [address] [place] [address] Dec, [facility] [address] [id number] [address] [place] [address] Dec, [facility] [address] [id number] [address] [place] [address] Dec, [facility] [address] [id number] [address] [place] [address] Dec, Other chronic pain G89.29 [facility] [address] [id number] [address] [place] [address] Dec, [facility] [address] [id number] [address] [place] [address] Nov, [facility] [address] [id number] [address] [place] [address] Nov, Other chronic pain G89.29 [facility] [address] [id number] [address] [place] [address] Nov, Right hip pain M25.551 and C oronary artery disease I25.10 [facility] [address] [id number] [address] [place] [address] Nov, Other chronic pain G89.29 [facility] [address] [id number] [address] [place] [address] Oct, [facility] [address] [id number] [address] [place] [address] Oct, [facility] [address] [id number] [address] [place] [address] Sep, [facility] [address] [id number] [address] [place] [address] Sep, [facility] [address] [id number] [address] [place] [address] Aug, [facility] [address] [id number] [address] [place] [address] Aug, Hypertension I10 ; Coronary artery disease I25.10 and Arthritis M19.90 [facility] [address] [id number] [address] [place] [address] Jun, [facility] [address] [id number] [address] [place] [address] Jun, Essential hypertension, jayson gn 401.1 ; Other chronic pain 338.29 and Chronic airway obstruction, not elsewhere classified 496 [facility] [address] [id number] [address] [place] [address] Jun, [facility] [address] [id number] [address] [place] [address] Jun, [facility] [address] [id number] [address] [place] [address] Jun, [facility] [address] [id number] [address] [place] [address] May, [facility] [address] [id number] [address] [place] [address] May, [facility] [address] [id number] [address] [place] [address] Apr, [facility] [address] [id number] [address] [place] [address] Apr, [facility] [address] [id number] [address] [place] [address] Apr, [facility] [address] [id number] [address] [place] [address] March, [facility] [address] [id number] [address] [place] [address] March, [facility] [address] [id number] [address] [place] [address] March, [facility] [address] [id number] [address] [place] [address], [place] [address] March, [facility] [address] [id number] [address] [place] [address], [place] [address] March, Sialadenitis 527.2 [facility] [address] [id number] [address] [place] [address], [place] [address] Feb, [facility] [address] [id number] [address] [place] [address], [place] [address] Feb, [facility] [address] [id number] [address] [place] [address], [place] [address] Feb, [facility] [address] [id number] [address] [place] [address], [place] [address] Feb, [facility] [address] [id number] [address] [place] [address] Feb, [facility] [address] [id number] [address] [place] [address], [place] [address] Jan, [facility] [address] [id number] [address] [place] [address], [place] [address] Jan, [facility] [address] [id number] [address] [place] [address], [place] [address] Jan, [facility] [address] [id number] [address] [place] [address], [place] [address] Jan, [facility] [address] [id number] [address] [place] [phone] Jan, [facility] [address] [id number] [address] [place] [id number] Jan, [facility] [address] [id number] [address] [place] [address], [place] [address] Dec, [facility] [address] [id number] [address] [place] [phone] Dec, [facility] [address] [id number] [address] [place] [address], [place] [address] Dec, [facility] [address] [id number] [address] [place] [address], [place] [address] Dec, [facility] [address] [id number] [address] [place] [address], [place] [address] Dec, [facility] [address] [id number] [address] [place] [address], [place] [address] Dec, [facility] [address] [id number] [address] [place] [address], [place] [address] Nov, [facility] [address] [id number] [address] [place] [address], [place] [address] Nov, [facility] [address] [id number] [address] [place] [address], [place] [address] Nov, [facility] [address] [id number] [address] [place] [address], [place] [address] Nov, [facility] [address] [id number] [address] [place] [address], [place] [address] Nov, [facility] [address] [id number] [address] [place] [address], [place] [address] Nov, [facility] [address] [id number] [address] [place] [address], [place] [address] Nov, [facility] [address] [id number] [address] [place] [address], [place] [address] Nov, [facility] [address] [id number] [address] [place] [address], [place] [address] Nov, [facility] [address] [id number] [address] [place] [address], [place] [address] Nov, [facility] [address] [id number] [address] [place] [address], [place] [address] Nov, [facility] [address] [id number] [address] [place] [address], [place] [address] Nov, [facility] [address] [id number] [address] [place] [address], [place] [address] Nov, [facility] [address] [id number] [address] [place] [address], [place] [address] Nov, [facility] [address] [id number] [address] [place] [address], [place] [address] Oct, [facility] [address] [id number] [address] [place] [address], [place] [address] Oct, [facility] [address] [id number] [address] [place] [address], [place] [address] Oct, [facility] [address] [id number] [address] [place] [address], [place] [address] Oct, [facility] [address] [id number] [address] [place] [address], [place] [address] Oct, [facility] [address] [id number] [address] [place] [address], [place] [address] Oct, [facility] [address] [id number] [address] [place] [address], [place] [address] Oct, [facility] [address] [id number] [address] [place] [address], [place] [address] Oct, [facility] [address] [id number] [address] [place] [address], [place] [address] Oct, [facility] [address] [id number] [address] [place] [address], [place] [address] Sep, [facility] [address] [id number] [address] [place] [address], [place] [address] Sep, [facility] [address] [id number] [address] [place] [address], [place] [address] Sep, [facility] [address] [id number] [address] [place] [address], [place] [address] Sep, [facility] [address] [id number] [address] [place] [address], [place] [address] Sep, [facility] [address] [id number] [address] [place] [address], [place] [address] Sep, [facility] [address] [id number] [address] [place] [address], [place] [address] Sep, [facility] [address] [id number] [address] [place] [address], [place] [address] Sep, [facility] [address] [id number] [address] [place] [address], [place] [address] Sep, [facility] [address] [id number] [address] [place] [address], [place] [address] Sep, [facility] [address] [id number] [address] [place] [address], [place] [address] Sep, [facility] [address] [id number] [address] [place] [address], [place] [address] Sep, [facility] [address] [id number] [address] [place] [address], [place] [address] Aug, [facility] [address] [id number] [address] [place] [address], [place] [address] Aug, [facility] [address] [id number] [address] [place] [address], [place] [address] Aug, [facility] [address] [id number] [address] [place] [address], [place] [address] Aug, [facility] [address] [id number] [address] [place] [address], [place] [address] Aug, [facility] [address] [id number] [address] [place] [address], [place] [address] Aug, [facility] [address] [id number] [address] [place] [address], [place] [address] Aug, [facility] [address] [id number] [address] [place] [address], [place] [address] Aug, [facility] [address] [id number] [facility] [place] [address] 30 Jul, 2013 [facility] [address] [id number] [address] [place] [address], [place] [address] 30 Jul, 2013 [facility] [address] [id number] [address] [place] [address], [place] [address] 30 Jul, 2013 [facility] [address] [id number] [address] [place] [address], [place] [address] 30 Jul, 2013 [facility] [address] [id number] [address] [place] [address], [place] [address] 25 Jul, 2013 [facility] [address] [id number] [address] [place] [address], [place] [address] 25 Jul, 2013 [facility] [address] [id number] [address] [place] [address], [place] [address] 15 Jul, 2014 [facility] [address] [id number] [address] [place] [address], [place] [address] 15 Jul, 2014 [facility] [address] [id number] [address] [place] [address], [place] [address] 11 Jul, 2014 [facility] [address] [id number] [address] [place] [address], [place] [address] Jul, [facility] [address] [id number] [address] [place] [address], [place] [address] Jun, [facility] [address] [id number] [address] [place] [address], [place] [address] Jun, [facility] [address] [id number] [address] [place] [address], [place] [address] Jun, [facility] [address] [id number] [address] [place] [address], [place] [address] Jun, [facility] [address] [id number] [address] [place] [address], [place] [address] Jun, [facility] [address] [id number] [address] [place] [address], [place] [address] Jun, [facility] [address] [id number] [facility] [place] [address] Jun, [facility] [address] [id number] [facility] [place] [address] Jun, [facility] [address] [id number] [facility] [place] [address] Jun, [facility] [address] [id number] [facility] [place] [address] Jun, [facility] [address] [id number] [address] [place] [address], [place] [address] Jun, [facility] [address] [id number] [address] [place] [address], [place] [address] Jun, [facility] [address] [id number] [address] [place] [address], [place] [address] Jun, [facility] [address] [id number] [address] [place] [address], [place] [address] Jun, [facility] [address] [id number] [address] [place] [address], [place] [address] Jun, [facility] [address] [id number] [address] [place] [address], [place] [address] Jun, [facility] [address] [id number] [address] [place] [address], [place] [address] Jun, [facility] [address] [id number] [address] [place] [address], [place] [address] Jun, [facility] [address] [id number] [address] [place] [address], [place] [address] Jun, [facility] [address] [id number] [address] [place] [address], [place] [address] Jun, [facility] [address] [id number] [address] [place] [address], [place] [address] Jun, [facility] [address] [id number] [facility] [place] [address] Jun, [facility] [address] [id number] [facility] [place] [address] May, [facility] [address] [id number] [facility] [place] [address] May, [facility] [address] [id number] [address] [place] [address], [place] [address] May, [facility] [address] [id number] [address] [place] [address], [place] [address] May, [facility] [address] [id number] [address] [place] [address], [place] [address] May, [facility] [address] [id number] [address] [place] [address], [place] [address] May, [facility] [address] [id number] [address] [place] [address], [place] [address] May, [facility] [address] [id number] [address] [place] [address], [place] [address] May, [facility] [address] [id number] [address] [place] [address], [place] [address] May, [facility] [address] [id number] [address] [place] [address], [place] [address] May, [facility] [address] [id number] [address] [place] [address], [place] [address] May, [facility] [address] [id number] [address] [place] [address], [place] [address] May, [facility] [address] [id number] [address] [place] [address], [place] [address] May, [facility] [address] [id number] [address] [place] [address], [place] [address] Apr, [facility] [address] [id number] [address] [place] [address], [place] [address] Apr, [facility] [address] [id number] [facility] [place] [address] Apr, [facility] [address] [id number] [address] [place] [address], [place] [address] Apr, [facility] [address] [id number] [facility] [place] [address] Apr, [facility] [address] [id number] [address] [place] [address], [place] [address] Apr, [facility] [address] [id number] [address] [place] [address], [place] [address] Apr, [facility] [address] [id number] [address] [place] [address], [place] [address] Apr, [facility] [address] [id number] [address] [place] [address], [place] [address] Apr, [facility] [address] [id number] [address] [place] [address], [place] [address] March, [facility] [address] [id number] [address] [place] [address], [place] [address] March, [facility] [address] [id number] [address] [place] [address], [place] [address] March, [facility] [address] [id number] [address] [place] [address], [place] [address] March, [facility] [address] [id number] [address] [place] [address], [place] [address] March, [facility] [address] [id number] [address] [place] [address], [place] [address] March, [facility] [address] [id number] [address] [place] [address], [place] [address] March, [facility] [address] [id number] [address] [place] [address], [place] [address] March, [facility] [address] [id number] [address] [place] [address], [place] [address] March, [facility] [address] [id number] [address] [place] [address], [place] [address] March, [facility] [address] [id number] [address] [place] [address], [place] [address] March, [facility] [address] [id number] [address] [place] [address], [place] [address] March, [facility] [address] [id number] [address] [place] [address], [place] [address] March, [facility] [address] [id number] [address] [place] [address], [place] [address] March, [facility] [address] [id number] [address] [place] [address], [place] [address] March, [facility] [address] [id number] [address] [place] [address], [place] [address] March, [facility] [address] [id number] [address] [place] [address], [place] [address] March, [facility] [address] [id number] [address] [place] [address], [place] [address] March, [facility] [address] [id number] [address] [place] [address], [place] [address] March, [facility] [address] [id number] [address] [place] [address], [place] [address] March, [facility] [address] [id number] [address] [place] [address], [place] [address] Feb, [facility] [address] [id number] [address] [place] [address], [place] [address] Feb, [facility] [address] [id number] [address] [place] [address], [place] [address] Feb, [facility] [address] [id number] [address] [place] [address], [place] [address] Feb, [facility] [address] [id number] [facility] [place] [address] Feb, [facility] [address] [id number] [address] [place] [address], [place] [address] Feb, [facility] [address] [id number] [address] [place] [address], [place] [address] Feb, [facility] [address] [id number] [address] [place] [address], [place] [address] Feb, [facility] [address] [id number] [address] [place] [address], [place] [address] Jan, [facility] [address] [id number] [address] [place] [address], [place] [address] Jan, [facility] [address] [id number] [address] [place] [address], [place] [address] Jan, [facility] [address] [id number] [address] [place] [address], [place] [address] Jan, [facility] [address] [id number] [address] [place] [address], [place] [address] Jan, [facility] [address] [id number] [address] [place] [address], [place] [address] Jan, [facility] [address] [id number] [address] [place] [address], [place] [address] Jan, [facility] [address] [id number] [address] [place] [address], [place] [address] Jan, [facility] [address] [id number] [place] [address], [place] [address] Jan, [facility] [address] [id number] [address] [place] [address], [place] [address] Jan, [facility] [address] [id number] [address] [place] [address], [place] [address] Dec, [facility] [address] [id number] [address] [place] [address], [place] [address] Dec, [facility] [address] [id number] [address] [place] [address], [place] [address] Dec, [facility] [address] [id number] [address] [place] [address], [place] [address] Dec, [facility] [address] [id number] [address] [place] [address], [place] [address] Dec, [facility] [address] [id number] [address] [place] [address], [place] [address] Dec, [facility] [address] [id number] [address] [place] [address], [place] [address] Dec, [facility] [address] [id number] [address] [place] [address], [place] [address] Dec, [facility] [address] [id number] [address] [place] [address], [place] [address] Nov, [facility] [address] [id number] [address] [place] [address], [place] [address] Nov, [facility] [address] [id number] [address] [place] [address], [place] [address] Nov, [facility] [address] [id number] [address] [place] [address], [place] [address] Nov, [facility] [address] [id number] [address] [place] [address], [place] [address] Nov, [facility] [address] [id number] [address] [place] [address], [place] [address] Nov, [facility] [address] [id number] [address] [place] [address], [place] [address] Nov, [facility] [address] [id number] [address] [place] [address], [place] [address] Nov, [facility] [address] [id number] [address] [place] [address], [place] [address] Nov, [facility] [address] [id number] [address] [place] [address], [place] [address] Nov, [facility] [address] [id number] [address] [place] [address], [place] [address] Nov, [facility] [address] [id number] [address] [place] [address], [place] [address] Nov, [facility] [address] [id number] [address] [place] [address], [place] [address] Nov, [facility] [address] [id number] [address] [place] [address], [place] [address] Oct, [facility] [address] [id number] [address] [place] [address], [place] [address] Oct, [facility] [address] [id number] [address] [place] [address], [place] [address] Oct, [facility] [address] [id number] [address] [place] [address], [place] [address] Oct, [facility] [address] [id number] [address] [place] [address], [place] [address] Oct, [facility] [address] [id number] [address] [place] [address], [place] [address] Oct, [facility] [address] [id number] [address] [place] [address], [place] [address] Oct, [facility] [address] [id number] [address] [place] [address], [place] [address] Oct, [facility] [address] [id number] [address] [place] [address], [place] [address] Oct, [facility] [address] [id number] [address] [place] [address], [place] [address] Oct, [facility] [address] [id number] [address] [place] [address], [place] [address] Oct, [facility] [address] [id number] [address] [place] [address] Oct, [facility] [address] [id number] [address] [place] [address], [place] [address] Oct, [facility] [address] [id number] [address] [place] [address] Oct, [facility] [address] [id number] [address] [place] [address] Sep, [facility] [address] [id number] [address] [place] [address] Sep, [facility] [address] [id number] [address] [place] [address], [place] [address] Sep, [facility] [address] [id number] [address] [place] [address] Sep, [facility] [address] [id number] [address] [place] [address] Sep, [facility] [address] [id number] [address] [place] [address] Sep, [facility] [address] [id number] [address] [place] [address] Sep, [facility] [address] [id number] [address] [place] [address] Sep, [facility] [address] [id number] [address] [place] [address] Sep, [facility] [address] [id number] [address] [place] [address] Sep, [facility] [address] [id number] [address] [place] [address] Aug, [facility] [address] [id number] [address] [place] [address] Aug, [facility] [address] [id number] [address] [place] [address] Aug, [facility] [address] [id number] [address] [place] [address], [place] [address] 24 Aug, 2012 [facility] [address] [id number] [address] [place] [address], [place] [address] 23 Aug, 2012 [facility] [address] [id number] [address] [place] [address], [place] [address] 23 Aug, 2012 [facility] [address] [id number] [address] [place] [address], [place] [address] 23 Aug, 2012 [facility] [address] [id number] [address] [place] [address], [place] [address] 23 Aug, 2012 [facility] [address] [id number] [address] [place] [address], [place] [address] Aug, 2012 [facility] [address] [id number] [address] [place] [address], [place] [address] 22 Aug, 2012 [facility] [address] [id number] [address] [place] [address], [place] [address] 18 Aug, 2012 [facility] [address] [id number] [address] [place] [address], [place] [address] 18 Aug, 2013 [facility] [address] [id number] [address] [place] [address], [place] [address] 18 Aug, 2012 [facility] [address] [id number] [address] [place] [address], [place] [address] 18 Aug, 2013 [facility] [address] [id number] [address] [place] [address], [place] [address] 17 Aug, 2012 [facility] [address] [id number] [address] [place] [address], [place] [address] 14 Aug, 2013 [facility] [address] [id number] [address] [place] [address], [place] [address] 14 Aug, 2013 [facility] [address] [id number] [address] [place] [address], [place] [address] Aug, [facility] [address] [id number] [address] [place] [address], [place] [address] 20 Jul, 2013 [facility] [address] [id number] [address] [place] [address], [place] [address] 19 Jul, 2013 [facility] [address] [id number] [address] [place] [address], [place] [address] 18 Jul, 2013 [facility] [address] [id number] [address] [place] [address], [place] [address] 11 Jul, 2013 [facility] [address] [id number] [address] [place] [address], [place] [address] 11 Jul, 2013 [facility] [address] [id number] [address] [place] [address], [place] [address] Jun, [facility] [address] [id number] [address] [place] [address], [place] [address] Jun, [facility] [address] [id number] [address] [place] [address], [place] [address] Jun, [facility] [address] [id number] [address] [place] [address], [place] [address] 15 Jun, 2013 [facility] [address] [id number] [address] [place] [address], [place] [address] Jun, [facility] [address] [id number] [address] [place] [address], [place] [address] Jun, [facility] [address] [id number] [address] [place] [address], [place] [address] Jun, [facility] [address] [id number] [address] [place] [address], [place] [address] Jun, [facility] [address] [id number] [address] [place] [address], [place] [address] Jun, [facility] [address] [id number] [address] [place] [address], [place] [address] Jun, [facility] [address] [id number] [address] [place] [address], [place] [address] May, [facility] [address] [id number] [address] [place] [address], [place] [address] May, [facility] [address] [id number] [address] [place] [address], [place] [address] May, [facility] [address] [id number] [address] [place] [address], [place] [address] May, [facility] [address] [id number] [address] [place] [address], [place] [address] May, [facility] [address] [id number] [address] [place] [address], [place] [address] May, [facility] [address] [id number] [address] [place] [address], [place] [address] May, [facility] [address] [id number] [address] [place] [address], [place] [address] May, [facility] [address] [id number] [address] [place] [address], [place] [address] May, [facility] [address] [id number] [address] [place] [address], [place] [address] Apr, [facility] [address] [id number] [address] [place] [address], [place] [address] Apr, [facility] [address] [id number] [address] [place] [address], [place] [address] Apr, [facility] [address] [id number] [address] [place] [address], [place] [address] Apr, [facility] [address] [id number] [address] [place] [address], [place] [address] Apr, [facility] [address] [id number] [address] [place] [address], [place] [address] Apr, [facility] [address] [id number] [address] [place] [address], [place] [address] Apr, [facility] [address] [id number] [address] [place] [address], [place] [address] March, [facility] [address] [id number] [facility] [place] [address] Feb, [facility] [address] [id number] [address] [place] [address], [place] [address] Feb, [facility] [address] [id number] [address] [place] [address], [place] [address] Feb, [facility] [address] [id number] [address] [place] [address], [place] [address] 28 Jan, 2013 [facility] [address] [id number] [address] [place] [address], [place] [address] Jan, [facility] [address] [id number] [address] [place] [address], [place] [address] 19 Jan, 2013 [facility] [address] [id number] [address] [place] [address], [place] [address] 14 Jan, 2013 [facility] [address] [id number] [address] [place] [address], [place] [address] 12 Jan, 2013 [facility] [address] [id number] [address] [place] [address], [place] [address] 08 Jan, 2013 [facility] [address] [id number] [address] [place] [address], [place] [address] 07 Jan, 2013 [facility] [address] [id number] [address] [place] [address], [place] [address] 04 Jan, 2013 [facility] [address] [id number] [address] [place] [address], [place] [address] 28 Dec, 2012 [facility] [address] [id number] [address] [place] [address], [place] [address] Dec, [facility] [address] [id number] [address] [place] [address], [place] [address] 13 Dec, 2012 [facility] [address] [id number] [address] [place] [address], [place] [address] Dec, [facility] [address] [id number] [address] [place] [address], [place] [address] 07 Dec, 2012 [facility] [address] [id number] [address] [place] [address], [place] [address] 06 Dec, 2012 [facility] [address] [id number] [address] [place] [address], [place] [address] 05 Dec, 2012 [facility] [address] [id number] [address] [place] [address], [place] [address] Nov, [facility] [address] [id number] [address] [place] [address], [place] [address] 24 Nov, 2012 [facility] [address] [id number] [address] [place] [address], [place] [address] 18 Nov, 2012 [facility] [address] [id number] [address] [place] [address], [place] [address] 15 Nov, 2012 [facility] [address] [id number] [address] [place] [address], [place] [address] Nov, [facility] [address] [id number] [address] [place] [address], [place] [address] Nov, [facility] [address] [id number] [address] [place] [address], [place] [address] Nov, [facility] [address] [id number] [address] [place] [address], [place] [address] Oct, [facility] [address] [id number] [address] [place] [address], [place] [address] 31 Oct, 2012 [facility] [address] [id number] [address] [place] [address], [place] [address] Oct, [facility] [address] [id number] [address] [place] [address], [place] [address] Oct, [facility] [address] [id number] [address] [place] [address], [place] [address] Oct, [facility] [address] [id number] [address] [place] [address], [place] [address] 17 Oct, 2012 [facility] [address] [id number] [address] [place] [address], [place] [address] 07 Oct, 2012 [facility] [address] [id number] [address] [place] [address], [place] [address] Oct, [facility] [address] [id number] [address] [place] [address], [place] [address] Oct, [facility] [address] [id number] [address] [place] [address], [place] [address] Oct, [facility] [address] [id number] [address] [place] [address], [place] [address] Oct, [facility] [address] [id number] [address] [place] [address], [place] [address] Oct, [facility] [address] [id number] [address] [place] [address], [place] [address] Sep, [facility] [address] [id number] [address] [place] [address], [place] [address] Sep, [facility] [address] [id number] [address] [place] [address], [place] [address] Sep, [facility] [address] [id number] [address] [place] [address], [place] [address] Sep, [facility] [address] [id number] [address] [place] [address], [place] [address] Sep, [facility] [address] [id number] [address] [place] [address], [place] [address] Sep, [facility] [address] [id number] [address] [place] [address], [place] [address] Sep, [facility] [address] [id number] [address] [place] [address], [place] [address] Sep, [facility] [address] [id number] [address] [place] [address], [place] [address] Sep, [facility] [address] [id number] [address] [place] [address], [place] [address] Sep, [facility] [address] [id number] [address] [place] [address], [place] [address] Sep, [facility] [address] [id number] [address] [place] [address], [place] [address] Aug, [facility] [address] [id number] [address] [place] [address], [place] [address] Aug, [facility] [address] [id number] [address] [place] [address], [place] [address] Aug, [facility] [address] [id number] [address] [place] [address], [place] [address] Aug, [facility] [address] [id number] [address] [place] [address], [place] [address] Aug, [facility] [address] [id number] [address] [place] [address], [place] [address] Aug, [facility] [address] [id number] [address] [place] [address] Aug, [facility] [address] [id number] [address] [place] [address], [place] [address] Aug, [facility] [address] [id number] [address] [place] [address] Aug, [facility] [address] [id number] [address] [place] [address] Aug, [facility] [address] [id number] [address] [place] [id number] 22 Jul, 2012 [facility] [address] [id number] [address] [place] [address], [place] [address] 20 Jul, 2011 [facility] [address] [id number] [address] [place] [id number] 10 Jul, 2011 [facility] [address] [id number] [address] [place] [id number] 06 Jul, 2012 [facility] [address] [id number] [address] [place] [address], [place] [address] Jun, [facility] [address] [id number] [address] [place] [address], [place] [address] Jun, [facility] [address] [id number] [address] [place] [address], [place] [address] Jun, [facility] [address] [id number] [address] [place] [address], [place] [address] Jun, [facility] [address] [id number] [address] [place] [address], [place] [address] Jun, [facility] [address] [id number] [address] [place] [address], [place] [address] Jun, [facility] [address] [id number] [address] [place] [address], [place] [address] Jun, [facility] [address] [id number] [address] [place] [address], [place] [address] May, [facility] [address] [id number] [address] [place] [address], [place] [address] May, [facility] [address] [id number] [address] [place] [address], [place] [address] May, [facility] [address] [id number] [address] [place] [address], [place] [address] May, [facility] [address] [id number] [address] [place] [address], [place] [address] May, [facility] [address] [id number] [address] [place] [address], [place] [address] Apr, [facility] [address] [id number] [address] [place] [address], [place] [address] Apr, [facility] [address] [id number] [address] [place] [address], [place] [address] Apr, [facility] [address] [id number] [address] [place] [address], [place] [address] Apr, [facility] [address] [id number] [address] [place] [address], [place] [address] Apr, [facility] [address] [id number] [address] [place] [address], [place] [address] March, [facility] [address] [id number] [address] [place] [address], [place] [address] March, [facility] [address] [id number] [address] [place] [address], [place] [address] March, [facility] [address] [id number] [address] [place] [address], [place] [address] March, [facility] [address] [id number] [address] [place] [address], [place] [address] March, [facility] [address] [id number] [address] [place] [address], [place] [address] March, [facility] [address] [id number] [address] [place] [address], [place] [address] March, [facility] [address] [id number] [address] [place] [address], [place] [address] March, [facility] [address] [id number] [address] [place] [address], [place] [address] March, [facility] [address] [id number] [address] [place] [address], [place] [address] March, [facility] [address] [id number] [address] [place] [address], [place] [address] Feb, [facility] [address] [id number] [address] [place] [address], [place] [address] Feb, [facility] [address] [id number] [address] [place] [address], [place] [address] Feb, [facility] [address] [id number] [address] [place] [address], [place] [address] Feb, [facility] [address] [id number] [address] [place] [address], [place] [address] Feb, [facility] [address] [id number] [address] [place] [address], [place] [address] Feb, [facility] [address] [id number] [address] [place] [address], [place] [address] Feb, [facility] [address] [id number] [address] [place] [address], [place] [address] Feb, [facility] [address] [id number] [address] [place] [address], [place] [address] Feb, [facility] [address] [id number] [address] [place] [address], [place] [address] Jan, [facility] [address] [id number] [address] [place] [address], [place] [address] Jan, [facility] [address] [id number] [address] [place] [address], [place] [address] Jan, [facility] [address] [id number] [address] [place] [address], [place] [address] Jan, [facility] [address] [id number] [address] [place] [address], [place] [address] Dec, [facility] [address] [id number] [address] [place] [address], [place] [address] Dec, [facility] [address] [id number] [address] [place] [address], [place] [address] Nov, [facility] [address] [id number] [address] [place] [address], [place] [address] Nov, [facility] [address] [id number] [address] [place] [address], [place] [address] Nov, [facility] [address] [address] [id number] [address] [place] [address], [place] [phone] 16 Nov, 2011 [facility] [address] [id number] [address] [place] [address], [place] [phone] Nov, [facility] [address] [id number] [address] [place] [phone] Oct, [facility] [address] [id number] [address] [place] [phone] Oct, [facility] [address] [id number] [address] [place] [phone] Oct, [facility] [address] [id number] [address] [place] [id number] Oct, [facility] [address] [id number] [address] [place] [phone] Oct, [facility] [address] [facility] [id number] [address] [place] [phone] Oct, [facility] [address] [id number] [address] [place] [phone] Oct, [facility] [address] [facility] [id number] [address] [place] [phone] Oct, [facility] [address] [facility] [id number] [address] [place] [phone] Sep, IMMUNIZATIONS No Known Immunizations SOCIAL HISTORY [...] History No Surgical history information Hospitalization History [facility]- Urosepsis, ab d pain and fever, discharged 11/27/2017 11/26/2017 Hospitalization History [facility] [place] [facility]- Went Unrepsonsive, Hit head 2017 Hospitalization History [facility] [place]- Back Pain 8
--- OUTSIDE RECORDS SUMMARY | 2020-06-18 14:36 | XMS REPORT ---
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 Name Role Phone Migration, Doctor Unavailable Unavailable PROBLEMS Type Condition ICD9-CM Code BAC99-UZ Code Onset Dates Condition S tatus SNOMED Code Problem Hypertension I10 Active 6273623 3 Problem Hyperlipidemia E78.5 Active 71624 004 Problem Coronary artery disease I25.10 Active 43687977 Problem Low back pain M54.5 Active 758036 009 Problem Other chronic pain G89.29 Active 8 3100622 Problem Ventral hernia without obstruction or gangrene K43 .9 Active 986179469 Problem Type 2 diabetes mellitus wit hout complication, without long-term current use of insulin E11.9 Active 878160048 Problem Anxiety F41.9 Active 92569273 Problem Peripheral vascular disease I73.9 Ac tive 760898579 Problem Insomnia G47.00 Active 875046958 Problem Microcytic anemia D50.9 Active 23 3725999 Problem Pharyngeal dysphagia R13.13 Active 63489913732154 Problem Other iron deficiency anemia D50.8 A ctive 73556732 Problem Reactive depression F32.9 Active 50639005 Problem Paroxysmal atrial fibrillation I48.0 Active 511694454 Problem 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 Active 52532974 Problem Encounter for suprapubic catheter care Z43.5 Active 466375925 Problem Neurogenic bladder N31.9 Active 3 52940153 ALLERGIES No Information ENCOUNTERS Encounter Location Date Diagnosis [facility] [address] [facility] [id number] [address] [place] [id number] March, [facility] [address] [facility] [id number] [address] [place] [id number] March, Anxiety F41.9 and Strain of right shoulder, subsequent encounter S46.911D [facility] [address] [facility] [id number] [address] [place] [id number] Feb, Anxiety F41.9 and Strain of right shoulder, subsequent encounter S46.911D [facility] [address] [id number] [address] [place] [id number] 24 Jan, 2020 Anxiety F41.9 and Strain of right shoulder, subsequent encounter S46.911D [facility] [address] [id number] [address] [place] [id number] 17 Jan, 2020 [facility] [employer] [address] [place] [id number] Jan, Neurogenic bladder N31.9 [facility] [address] [id number] [address] [place] [phone] Dec, 2019 [facility] [address] [id number] [address] [place] [id number] Dec, 2019 [place] [address] [id number] [address] [place] [address] Dec, Anxiety F41.9 and Strain of right shoulder, subsequent encounter S46.911D [facility] [address] [id number] [address] [place] [id number] 10 Dec, 2019 Other iron deficiency anemia D50.8 [facility] [address] [id number] [address] [place] [id number] 04 Dec, 2019 [facility] [employer] [address] [place] [id number] Dec, Encounter for suprapubic catheter care Z 43.5 and Microcytic anemia D50.9 [facility] [address] [id number] [address] [place] [id number] 03 Dec, 2019 [facility] [address] [id number] [address] [place] [id number] Nov, Anxiety F41.9 and Strain of right shoulder, subsequent encounter S46.911D [facility] [address] [id number] [address] [place] [id number] Nov, Hypertension I10 [facility] [address] [place] [id number] Nov, Pneumonia of both lungs due to infectiou s organism, unspecified part of lung J18.9 and Suprapubic catheter Z93.59 [facility] [address] [id number] [address] [place] [phone] Nov, Hypertension I10 and Reactiv e depression F32.9 [facility] [address] [id number] [address] [place] [id number] Oct, Strain of right shoulder, scherer bsequent encounter S46.911D and Anxiety F41.9 [place] [address] [id number] [address] [place] [id number] Oct, Via [facility] [employer] [address] [place] [id number] Oct, Suprapubic catheter Z93.59 and Candidias is, intertriginous B37.2 [place] [address] [id number] [address] [place] [id number] Oct, Suprapubic catheter Z93.59 [facility] [address] [id number] [address] [place] [id number] Oct, Anxiety F41.9 and Strain of right shoulder, subsequent encounter S46.911D [facility] [address] [id number] [address] [place] [id number] Sep, [facility] [address] [id number] [address] [place] [id number] Sep, [facility] [address] [id number] [address] [place] [phone] Sep, Via [facility] [address] [place] [id number] Sep, Suprapubic catheter Z93.59 [facility] [address] [id number] [address] [place] [phone] Sep, Anxiety F41.9 and Strain of right shoulder, subsequent encounter S46.911D [facility] [address] [id number] [address] [place] [id number] Aug, [facility] [address] [id number] [address] [place] [id number] Aug, [facility] [address] [id number] [address] [place] [address] Aug, Anxiety F41.9 and Strain of right shoulder, subsequent encounter S46.911D [facility] [address] [place] [id number] Aug, Suprapubic catheter Z93.59 [facility] [address] [id number] [address] [place] [address] Jul, Strain of right shoulder, scherer bsequent encounter S46.911D and Anxiety F41.9 [facility] [address] [id number] [address] [place] [id number] Jul, Anxiety F41.9 [facility] [address] [id number] [address] [place] [id number] Jun, [facility] [address] [id number] [address] [place] [phone] Jun, [facility] [address] [id number] [address] [place] [id number] Jun, [facility] [address] [id number] [address] [place] [address] Jun, Strain of right shoulder, scherer bsequent encounter S46.911D [facility] [address] [id number] [address] [place] [address] Jun, Strain of right shoulder, scherer bsequent encounter S46.911D [facility] [address] [id number] [address] [place] [id number] Jun, Anxiety F41.9 [facility] [employer] [address] [place] [id number] Jun, Neurogenic bladder N31.9 and Anxiety F41 .9 [facility] [employer] [address] [place] [id number] May, Anxiety F41.9 [place] [address] [id number] [address] [place] [address] May, Dysuria R30.0 [place] [address] [id number] [address] [place] [id number] May, Strain of right shoulder, scherer bsequent encounter S46.911D and Anxiety F41.9 [place] [address] [id number] [address] [place] [address] Apr, [facility] [address] [place] [id number] Apr, Strain of right shoulder, subsequent enc ounter S46.911D [place] [address] [facility] [id number] [address] [place] [id number] 14 Apr, 2019 Strain of right shoulder, scherer bsequent encounter S46.911D and Anxiety F41.9 [facility] [employer] [address] [place] [id number] 13 Apr, 2019 Type 2 diabetes mellitus without complic ation, without long-term current use of insulin E11.9 and Neurogenic bladder N31.9 [facility] [employer] [address] [place] [id number] Apr, Strain of right shoulder, subsequent enc ounter S46.911D ; History of GI bleed Z87.19 ; Neurogenic bladder N31.9 and Reactive depression F32.9 [place] [address] [id number] [address] [place] [address] 10 Apr, 2019 Acute pain of left shoulder M25.512 [place] [address] [id number] [address] [place] [phone] 07 Apr, 2019 [place] [address] [id number] [address] [place] [id number] 06 Apr, 2019 Anxiety F41.9 and Other chronic specialist 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 [facility] [address] [place] [id number] March, Gastrointestinal hemorrhage associated w ith acute gastritis K29.01 [facility] [address] [id number] [address] [place] [id number] March, Via [email or web address] [address] [place] [id number] March, Bronchitis J40 [facility] [address] [id number] [address] [place] [id number] March, Cough R05 [facility] [address] [id number] [address] [place] [phone] March, Other chronic pain G89.29 [facility] [address] [id number] [address] [place] [address] March, Anxiety F41.9 [facility] [address] [id number] [address] [place] [id number] March, [facility] [address] [id number] [address] [place] [id number] Feb, Other chronic pain G89.29 [facility] [address] [id number] [address] [place] [address] Feb, Anxiety F41.9 [facility] [address] [id number] [address] [place] [id number] Feb, Other chronic pain G89.29 [facility] [employer] [address] [place] [id number] Feb, Neurogenic bladder N31.9 and Suprapubic catheter Z93.59 [facility] [address] [id number] [address] [place] [address] Jan, Anxiety F41.9 [facility] [address] [id number] [address] [place] [id number] Dec, Anxiety F41.9 [facility] [address] [id number] [address] [place] [phone] Dec, Other chronic pain G89.29 an d Anxiety F41.9 [facility] [address] [id number] [address] [place] [id number] Dec, Via [employer] [address] [place] [id number] Dec, Neurogenic bladder N31.9 and Suprapubic catheter Z93.59 [facility] [address] [id number] [address] [place] [id number] Nov, Other chronic pain G89.29 an d Anxiety F41.9 [facility] [address] [id number] [address] [place] [phone] Nov, Via [employer] [address] [place] [id number] Nov, Suprapubic catheter Z93.59 [facility] [address] [id number] [address] [place] [address] Oct, Other chronic pain G89.29 an d Anxiety F41.9 [facility] [address] [id number] [address] [place] [id number] Oct, [facility] [address] [id number] [address] [place] [address] Oct, Suprapubic catheter Z93.59 [facility] [address] [id number] [address] [place] [phone] Oct, Via [employer] [address] [place] [id number] Oct, [facility] [address] [id number] [address] [place] [id number] Oct, Anxiety F41.9 [facility] [address] [id number] [address] [place] [id number] Oct, Anxiety F41.9 Via [employer] [address] [place] [id number] Oct, Other chronic pain G89.29 [facility] [address] [id number] [address] [place] [id number] 14 Sep, 2018 Other chronic pain G89.29 Via [employer] [address] [place] [id number] Sep, Suprapubic catheter Z93.59 and Cervicalg ia M54.2 [facility] [address] [id number] [address] [place] [phone] Sep, [facility] [address] [id number] [address] [place] [phone] Sep, [facility] [address] [id number] [address] [place] [phone] Sep, Via [employer] [address] [place] [id number] Aug, Cystitis N30.90 [facility] [address] [id number] [address] [place] [phone] Aug, [facility] [address] [id number] [address] [place] [id number] Aug, Other chronic pain G89.29 [facility] [address] [id number] [address] [place] [id number] Aug, Via [employer] [address] [place] [id number] Aug, Encounter for suprapubic catheter care Z 43.5 [facility] [address] [id number] [address] [place] [phone] Jul, Via [employer] [address] [place] [id number] Jul, [facility] [address] [id number] [address] [place] [id number] Jul, Other chronic pain G89.29 [facility] [address] [id number] [address] [place] [id number] Jul, [facility] [address] [id number] [address] [place] [phone] Jul, Via [employer] [address] [place] [id number] Jun, 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 [place] [address] [id number] [address] [place] [phone] Jun, Other chronic pain G89.29 [place] [address] [id number] [address] [place] [id number] Jun, Via [employer] [address] [place] [id number] May, Anxiety F41.9 ; Type 2 diabetes mellitus without complication, without long-term current use of insulin E11.9 ; Hypertension I10 ; Low back pain M54.5 ; Paroxysmal atrial fibrillation I48.0 and 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 [place] [address] [id number] [address] [place] [address] May, Other chronic pain G89.29 [facility] [employer] [address] [place] [id number] May, Low back pain M54.5 [place] [address] [id number] [address] [place] [address] May, [place] [address] [id number] [address] [place] [address] Apr, Other chronic pain G89.29 [place] [address] [id number] [address] [place] [address] Apr, [place] [address] [id number] [address] [place] [address] Apr, Via [employer] [address] [place] [id number] Apr, Closed compression fracture of L3 lumbar vertebra with routine healing, subsequent encounter S32.030D [facility] [employer] [address] [place] [id number] Apr, Low back pain M54.5 [facility] [employer] [address] [place] [id number] Apr, Coccydynia M53.3 [facility] [address] [id number] [address] [place] [address] March, [facility] [address] [id number] [address] [place] [address] March, Other chronic pain G89.29 [facility] [address] [id number] [address] [place] [phone] March, [facility] [address] [id number] [address] [place] [id number] March, [facility] [address] [id number] [address] [place] [phone] Feb, [facility] [address] [id number] [address] [place] [address] Feb, Other chronic pain G89.29 Via [employer] [address] [place] [id number] Feb, Other chronic pain G89.29 and Anxiety F4 1.9 [facility] [address] [id number] [address] [place] [address] Feb, [facility] [address] [id number] [address] [place] [address] Jan, [facility] [address] [id number] [address] [place] [phone] Jan, [facility] [address] [id number] [address] [place] [phone] Jan, [facility] [address] [id number] [address] [place] [phone] Jan, [facility] [address] [id number] [address] [place] [address] Dec, Via [employer] [address] [place] [id number] Dec, Peripheral vascular disease I73.9 ; 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 [place] [place] [id number] Nov, Anxiety F41.9 [facility] [address] [facility] [id number] [address] [place] [address] Nov, [place] [address] [id number] [place] [facility] [place] [place] [id number] Nov, Anxiety F41.9 Via [employer] [address] [place] [id number] Nov, Status post surgery Z98.890 ; Confused R 41.0 ; Anxiety F41.9 and Other chronic pain G89.29 [place] [address] [id number] [place] [id number] Nov, Other chronic pain G89.29 [place] [address] [address] [facility] [id number] [address] [place] [address] Oct, [place] [address] [id number] [place] [id number] Oct, Other chronic pain G89.29 [place] [address] [address] [facility] [id number] [address] [place] [address] Oct, Anxiety F41.9 [place] [address] [id number] [place] [id number] Sep, Other chronic pain G89.29 [place] [address] [id number] [place] [id number] Sep, [facility] [employer] [address] [place] [id number] Aug, Dysuria R30.0 and Anxiety F41.9 [place] [address] [id number] [address] [place] [address] 16 Aug, 2017 [facility] [address] [id number] [place] [id number] Aug, Other chronic pain G89.29 [facility] [address] [id number] [address] [place] [id number] Jul, Other chronic pain G89.29 [facility] [address] [id number] [place] [id number] Jun, [facility] [address] [id number] [place] [id number] Jun, Other chronic pain G89.29 [facility] [address] [id number] [address] [place] [id number] Jun, [facility] [address] [facility] [id number] [address] [place] [address] May, Other chronic pain G89.29 [facility] [address] [id number] [address] [place] [phone] Apr, Other chronic pain G89.29 [facility] [address] [place] [id number] Apr, Reactive depression F32.9 and Pharyngeal dysphagia R13.13 [facility] [address] [facility] [id number] [address] [place] [phone] Apr, Urinary tract infection with out hematuria, site unspecified N39.0 [facility] [address] [facility] [id number] [address] [place] [id number] March, Other chronic pain G89.29 [facility] [address] [id number] [address] [place] [id number] Feb, Other chronic pain G89.29 [facility] [address] [id number] [address] [place] [id number] Feb, [facility] [address] [id number] [place] [id number] Feb, [facility] [employer] [address] [place] [id number] Feb, Dysuria R30.0 and Ventral hernia without obstruction or gangrene K43.9 [facility] [address] [id number] [address] [place] [id number] Jan, Other chronic pain G89.29 [facility] [address] [id number] [place] [id number] Dec, Other chronic pain G89.29 [facility] [address] [id number] [address] [place] [address] Nov, Other chronic pain G89.29 [facility] [employer] [address] [place] [id number] Nov, Lymphadenitis I88.9 [facility] [address] [id number] [address] [place] [id number] Nov, Other chronic pain G89.29 [facility] [address] [id number] [address] [place] [id number] Nov, [facility] [place] [address] [id number] [place] [id number] Nov, Other chronic pain G89.29 [facility] [place] [facility] [address] [place] [id number] Oct, Low back pain M54.5 ; Hypertension I10 a nd Type 2 diabetes mellitus without complication, without long-term current use of insulin E11.9 [facility] [address] [id number] [address] [place] [id number] Oct, [facility] [address] [id number] [address] [place] [id number] Oct, [facility] [address] [id number] [address] [place] [id number] Oct, [facility] [address] [id number] [address] [place] [id number] Oct, [facility] [address] [id number] [address] [place] [id number] Sep, [facility] [address] [id number] [address] [place] [id number] Sep, [facility] [address] [id number] [address] [place] [id number] Aug, Other chronic pain G89.29 [facility] [address] [id number] [address] [place] [id number] Jul, [facility] [facility] [address] [id number] [address] [place] [address] Jul, [facility] [address] [id number] [address] [place] [address] Jul, [facility] [address] [id number] [address] [place] [address] Jun, [facility] [address] [id number] [address] [place] [address] Jun, [facility] [address] [place] [id number] Jun, Low back pain M54.5 ; Other chronic pain G89.29 and Coronary artery disease I25.10 [facility] [address] [id number] [address] [place] [address] Jun, [facility] [address] [id number] [address] [place] [address] May, [facility] [address] [id number] [address] [place] [address] May, [facility] [address] [id number] [address] [place] [address] May, Other chronic pain G89.29 [facility] [address] [id number] [address] [place] [address] May, [facility] [address] [id number] [address] [place] [address] 28 Apr, 2016 [facility] [address] [id number] [address] [place] [id number] 17 Apr, 2016 Acute cystitis without hemat uria N30.00 [facility] [address] [id number] [address] [place] [address] 16 Apr, 2016 Acute cystitis without hemat uria N30.00 ; Coronary artery disease I25.10 ; Low back pain M54.5 and Other chronic pain G89.29 [facility] [address] [id number] [address] [place] [address] 13 Apr, 2016 Other chronic pain G89.29 [facility] [address] [id number] [address] [place] [address] March, Other chronic pain G89.29 [facility] [address] [id number] [address] [place] [id number] 18 Feb, 2016 [facility] [address] [id number] [address] [place] [address] 15 Feb, 2016 Arthritis M19.90 [facility] [address] [id number] [address] [place] [address] Feb, [facility] [address] [id number] [address] [place] [address] 30 Jan, 2016 [facility] [address] [id number] [address] [place] [address] Jan, [facility] [address] [id number] [address] [place] [address] Jan, Other chronic pain G89.29 [facility] [address] [id number] [address] [place] [address] Jan, Hypertension I10 ; Coronary artery disease I25.10 and Insomnia G47.00 [facility] [address] [id number] [address] [place] [address] Jan, [facility] [address] [id number] [address] [place] [address] Dec, Right hip pain M25.551 [facility] [address] [id number] [address] [place] [address] Dec, [facility] [address] [id number] [address] [place] [address] Dec, [facility] [address] [id number] [address] [place] [address] Dec, [facility] [address] [id number] [address] [place] [address] Dec, Other chronic pain G89.29 [facility] [address] [id number] [address] [place] [address] Dec, [facility] [address] [id number] [address] [place] [id number] Nov, [facility] [address] [id number] [address] [place] [address] Nov, Other chronic pain G89.29 [facility] [address] [id number] [address] [place] [id number] Nov, Right hip pain M25.551 and C oronary artery disease I25.10 [facility] [address] [id number] [address] [place] [address] Nov, Other chronic pain G89.29 [facility] [address] [id number] [address] [place] [address] Oct, [facility] [address] [id number] [address] [place] [address] Oct, [facility] [address] [id number] [address] [place] [address] Sep, [facility] [address] [id number] [address] [place] [id number] Sep, [facility] [address] [id number] [address] [place] [address] Aug, [facility] [address] [id number] [address] [place] [id number] Aug, Hypertension I10 ; Coronary artery disease I25.10 and Arthritis M19.90 [facility] [address] [id number] [address] [place] [address] Jun, [facility] [address] [id number] [address] [place] [address] Jun, Essential hypertension, jayson gn 401.1 ; Other chronic pain 338.29 and Chronic airway obstruction, not elsewhere classified 496 [facility] [address] [id number] [address] [place] [id number] Jun, [facility] [address] [id number] [address] [place] [id number] Jun, [facility] [address] [id number] [address] [place] [address] Jun, [facility] [address] [id number] [address] [place] [id number] May, [facility] [address] [id number] [address] [place] [id number] May, [facility] [address] [id number] [address] [place] [address] Apr, [facility] [address] [id number] [address] [place] [id number] Apr, [facility] [address] [id number] [address] [place] [phone] Apr, [facility] [address] [id number] [address] [place] [address] March, [facility] [address] [id number] [address] [place] [id number] March, [facility] [address] [id number] [address] [place] [address] March, [facility] [address] [id number] [address] [place] [address], [place] [address] March, [facility] [address] [id number] [address] [place] [address], [place] [address] March, Sialadenitis 527.2 [facility] [address] [id number] [address] [place] [address], [place] [address] Feb, [facility] [address] [id number] [address] [place] [address], [place] [address] Feb, [facility] [address] [id number] [address] [place] [address], [place] [address] Feb, [facility] [address] [id number] [address] [place] [address], [place] [address] Feb, [facility] [address] [id number] [address] [place] [phone] Feb, [facility] [address] [id number] [address] [place] [address], [place] [address] Jan, [facility] [address] [id number] [address] [place] [address], [place] [address] Jan, [facility] [address] [id number] [address] [place] [address], [place] [address] Jan, [facility] [address] [id number] [address] [place] [address], [place] [address] Jan, [facility] [address] [id number] [address] [place] [address] Jan, [facility] [address] [id number] [address] [place] [id number] Jan, [facility] [address] [id number] [address] [place] [address], [place] [address] Dec, [facility] [address] [id number] [address] [place] [id number] Dec, [facility] [address] [id number] [address] [place] [address], [place] [address] Dec, [facility] [address] [id number] [address] [place] [address], [place] [address] Dec, [facility] [address] [id number] [address] [place] [address], [place] [address] Dec, [facility] [address] [id number] [address] [place] [address], [place] [address] Dec, [facility] [address] [id number] [address] [place] [address], [place] [address] Nov, [facility] [address] [id number] [address] [place] [address], [place] [address] Nov, [facility] [address] [id number] [address] [place] [address], [place] [address] Nov, [facility] [address] [id number] [address] [place] [address], [place] [address] Nov, [facility] [address] [id number] [address] [place] [address], [place] [address] Nov, [facility] [address] [id number] [address] [place] [address], [place] [address] Nov, [facility] [address] [id number] [address] [place] [address], [place] [address] Nov, [facility] [address] [id number] [address] [place] [address], [place] [address] Nov, [facility] [address] [id number] [address] [place] [address], [place] [address] Nov, [facility] [address] [id number] [address] [place] [address], [place] [address] Nov, [facility] [address] [id number] [address] [place] [address], [place] [address] Nov, [facility] [address] [id number] [address] [place] [address], [place] [address] Nov, [facility] [address] [id number] [address] [place] [address], [place] [address] Nov, [facility] [address] [id number] [address] [place] [address], [place] [address] Nov, [facility] [address] [id number] [address] [place] [address], [place] [address] Oct, [facility] [address] [id number] [address] [place] [address], [place] [address] Oct, [facility] [address] [id number] [address] [place] [address], [place] [address] Oct, [facility] [address] [id number] [address] [place] [address], [place] [address] Oct, [facility] [address] [id number] [address] [place] [address], [place] [address] Oct, [facility] [address] [id number] [address] [place] [address], [place] [address] Oct, [facility] [address] [id number] [address] [place] [address], [place] [address] Oct, [facility] [address] [id number] [address] [place] [address], [place] [address] Oct, [facility] [address] [id number] [address] [place] [address], [place] [address] Oct, [facility] [address] [id number] [address] [place] [address], [place] [address] Sep, [facility] [address] [id number] [address] [place] [address], [place] [address] Sep, [facility] [address] [id number] [address] [place] [address], [place] [address] Sep, [facility] [address] [id number] [address] [place] [address], [place] [address] Sep, [facility] [address] [id number] [address] [place] [address], [place] [address] Sep, [facility] [address] [id number] [address] [place] [address], [place] [address] Sep, [facility] [address] [id number] [address] [place] [address], [place] [address] Sep, [facility] [address] [id number] [address] [place] [address], [place] [address] Sep, [facility] [address] [id number] [address] [place] [address], [place] [address] Sep, [facility] [address] [id number] [address] [place] [address], [place] [address] Sep, [facility] [address] [id number] [address] [place] [address], [place] [address] Sep, [facility] [address] [id number] [address] [place] [address], [place] [address] Sep, [facility] [address] [id number] [address] [place] [address], [place] [address] Aug, [facility] [address] [id number] [address] [place] [address], [place] [address] Aug, [facility] [address] [id number] [address] [place] [address], [place] [address] Aug, [facility] [address] [id number] [address] [place] [address], [place] [address] Aug, [facility] [address] [id number] [address] [place] [address], [place] [address] Aug, [facility] [address] [id number] [address] [place] [address], [place] [address] Aug, [facility] [address] [id number] [address] [place] [address], [place] [address] Aug, [facility] [address] [id number] [address] [place] [address], [place] [address] Aug, [facility] [address] [id number] [facility] [place] [address] 30 Jul, 2013 [facility] [address] [id number] [address] [place] [address], [place] [address] 30 Jul, 2013 [facility] [address] [id number] [address] [place] [address], [place] [address] 30 Jul, 2013 [facility] [address] [id number] [address] [place] [address], [place] [address] 30 Jul, 2013 [facility] [address] [id number] [address] [place] [address], [place] [address] 25 Jul, 2013 [facility] [address] [id number] [address] [place] [address], [place] [address] 25 Jul, 2013 [facility] [address] [id number] [address] [place] [address], [place] [address] 15 Jul, 2014 [facility] [address] [id number] [address] [place] [address], [place] [address] 15 Jul, 2014 [facility] [address] [id number] [address] [place] [address], [place] [address] 11 Jul, 2014 [facility] [address] [id number] [address] [place] [address], [place] [address] Jul, [facility] [address] [id number] [address] [place] [address], [place] [address] Jun, [facility] [address] [id number] [address] [place] [address], [place] [address] Jun, [facility] [address] [id number] [address] [place] [address], [place] [address] Jun, [facility] [address] [id number] [address] [place] [address], [place] [address] Jun, [facility] [address] [id number] [address] [place] [address], [place] [address] Jun, [facility] [address] [id number] [address] [place] [address], [place] [address] Jun, [facility] [address] [id number] [facility] [place] [address] Jun, [facility] [address] [id number] [facility] [place] [address] Jun, [facility] [address] [id number] [facility] [place] [address] Jun, [facility] [address] [id number] [facility] [place] [address] Jun, [facility] [address] [id number] [address] [place] [address], [place] [address] Jun, [facility] [address] [id number] [address] [place] [address], [place] [address] Jun, [facility] [address] [id number] [address] [place] [address], [place] [address] Jun, [facility] [address] [id number] [address] [place] [address], [place] [address] Jun, [facility] [address] [id number] [address] [place] [address], [place] [address] Jun, [facility] [address] [id number] [address] [place] [address], [place] [address] Jun, [facility] [address] [id number] [address] [place] [address], [place] [address] Jun, [facility] [address] [id number] [address] [place] [address], [place] [address] Jun, [facility] [address] [id number] [address] [place] [address], [place] [address] Jun, [facility] [address] [id number] [address] [place] [address], [place] [address] Jun, [facility] [address] [id number] [address] [place] [address], [place] [address] Jun, [facility] [address] [id number] [facility] [place] [address] Jun, [facility] [address] [id number] [facility] [place] [address] May, [facility] [address] [id number] [facility] [place] [address] May, [facility] [address] [id number] [address] [place] [address], [place] [address] May, [facility] [address] [id number] [address] [place] [address], [place] [address] May, [facility] [address] [id number] [address] [place] [address], [place] [address] May, [facility] [address] [id number] [address] [place] [address], [place] [address] May, [facility] [address] [id number] [address] [place] [address], [place] [address] May, [facility] [address] [id number] [address] [place] [address], [place] [address] May, [facility] [address] [id number] [address] [place] [address], [place] [address] May, [facility] [address] [id number] [address] [place] [address], [place] [address] May, [facility] [address] [id number] [address] [place] [address], [place] [address] May, [facility] [address] [id number] [address] [place] [address], [place] [address] May, [facility] [address] [id number] [address] [place] [address], [place] [address] May, [facility] [address] [id number] [address] [place] [address], [place] [address] Apr, [facility] [address] [id number] [address] [place] [address], [place] [address] Apr, [facility] [address] [id number] [facility] [place] [address] Apr, [facility] [address] [id number] [address] [place] [address], [place] [address] Apr, [facility] [address] [id number] [facility] [place] [address] Apr, [facility] [address] [id number] [address] [place] [address], [place] [address] Apr, [facility] [address] [id number] [address] [place] [address], [place] [address] Apr, [facility] [address] [id number] [address] [place] [address], [place] [address] Apr, [facility] [address] [id number] [address] [place] [address], [place] [address] Apr, [facility] [address] [id number] [address] [place] [address], [place] [address] March, [facility] [address] [id number] [address] [place] [address], [place] [address] March, [facility] [address] [id number] [address] [place] [address], [place] [address] March, [facility] [address] [id number] [address] [place] [address], [place] [address] March, [facility] [address] [id number] [address] [place] [address], [place] [address] March, [facility] [address] [id number] [address] [place] [address], [place] [address] March, [facility] [address] [id number] [address] [place] [address], [place] [address] March, [facility] [address] [id number] [address] [place] [address], [place] [address] March, [facility] [address] [id number] [address] [place] [address], [place] [address] March, [facility] [address] [id number] [address] [place] [address], [place] [address] March, [facility] [address] [id number] [address] [place] [address], [place] [address] March, [facility] [address] [id number] [address] [place] [address], [place] [address] March, [facility] [address] [id number] [address] [place] [address], [place] [address] March, [facility] [address] [id number] [address] [place] [address], [place] [address] March, [facility] [address] [id number] [address] [place] [address], [place] [address] March, [facility] [address] [id number] [address] [place] [address], [place] [address] March, [facility] [address] [id number] [address] [place] [address], [place] [address] March, [facility] [address] [id number] [address] [place] [address], [place] [address] March, [facility] [address] [id number] [address] [place] [address], [place] [address] March, [facility] [address] [id number] [address] [place] [address], [place] [address] March, [facility] [address] [id number] [address] [place] [address], [place] [address] Feb, [facility] [address] [id number] [address] [place] [address], [place] [address] Feb, [facility] [address] [id number] [address] [place] [address], [place] [address] Feb, [facility] [address] [id number] [address] [place] [address], [place] [address] Feb, [facility] [address] [id number] [facility] [place] [address] Feb, [facility] [address] [id number] [address] [place] [address], [place] [address] Feb, [facility] [address] [id number] [address] [place] [address], [place] [address] Feb, [facility] [address] [id number] [address] [place] [address], [place] [address] Feb, [facility] [address] [id number] [address] [place] [address], [place] [address] Jan, [facility] [address] [id number] [address] [place] [address], [place] [address] Jan, [facility] [address] [id number] [address] [place] [address], [place] [address] Jan, [facility] [address] [id number] [address] [place] [address], [place] [address] Jan, [facility] [address] [id number] [address] [place] [address], [place] [address] Jan, [facility] [address] [id number] [address] [place] [address], [place] [address] Jan, [facility] [address] [id number] [address] [place] [address], [place] [address] Jan, [facility] [address] [id number] [address] [place] [address], [place] [address] Jan, [facility] [address] [id number] [address] [place] [address], [place] [address] Jan, [facility] [address] [id number] [address] [place] [address], [place] [address] Jan, [facility] [address] [id number] [address] [place] [address], [place] [address] Dec, [facility] [address] [id number] [address] [place] [address], [place] [address] Dec, [facility] [address] [id number] [address] [place] [address], [place] [address] Dec, [facility] [address] [id number] [address] [place] [address], [place] [address] Dec, [facility] [address] [id number] [address] [place] [address], [place] [address] Dec, [facility] [address] [id number] [address] [place] [address], [place] [address] Dec, [facility] [address] [id number] [address] [place] [address], [place] [address] Dec, [facility] [address] [id number] [address] [place] [address], [place] [address] Dec, [facility] [address] [id number] [address] [place] [address], [place] [address] Nov, [facility] [address] [id number] [address] [place] [address], [place] [address] Nov, [facility] [address] [id number] [address] [place] [address], [place] [address] Nov, [facility] [address] [id number] [address] [place] [address], [place] [address] Nov, [facility] [address] [id number] [address] [place] [address], [place] [address] Nov, [facility] [address] [id number] [address] [place] [address], [place] [address] Nov, [facility] [address] [id number] [address] [place] [address], [place] [address] Nov, [facility] [address] [id number] [address] [place] [address], [place] [address] Nov, [facility] [address] [id number] [address] [place] [address], [place] [address] Nov, [facility] [address] [id number] [address] [place] [address], [place] [address] Nov, [facility] [address] [id number] [address] [place] [address], [place] [address] Nov, [facility] [address] [id number] [address] [place] [address], [place] [address] Nov, [facility] [address] [id number] [address] [place] [address], [place] [address] Nov, [facility] [address] [id number] [address] [place] [address], [place] [address] Oct, [facility] [address] [id number] [address] [place] [address], [place] [address] Oct, [facility] [address] [id number] [address] [place] [address], [place] [address] Oct, [facility] [address] [id number] [address] [place] [address], [place] [address] Oct, [facility] [address] [id number] [address] [place] [address], [place] [address] Oct, [facility] [address] [id number] [address] [place] [address], [place] [address] Oct, [facility] [address] [id number] [address] [place] [address], [place] [address] Oct, [facility] [address] [id number] [address] [place] [address], [place] [address] Oct, [facility] [address] [id number] [address] [place] [address], [place] [address] Oct, [facility] [address] [id number] [address] [place] [address], [place] [address] Oct, [facility] [address] [id number] [address] [place] [address], [place] [address] Oct, [facility] [address] [id number] [address] [place] [address] Oct, [facility] [address] [id number] [address] [place] [address], [place] [address] Oct, [facility] [address] [id number] [address] [place] [address] Oct, [facility] [address] [id number] [address] [place] [address] Sep, [facility] [address] [id number] [address] [place] [address] Sep, [facility] [address] [id number] [address] [place] [address], [place] [address] Sep, [facility] [address] [id number] [address] [place] [phone] Sep, [facility] [address] [id number] [address] [place] [address] Sep, [facility] [address] [id number] [address] [place] [address] Sep, [facility] [address] [id number] [address] [place] [address] Sep, [facility] [address] [id number] [address] [place] [id number] Sep, [facility] [address] [id number] [address] [place] [address] Sep, [facility] [address] [id number] [address] [place] [address] Sep, [facility] [address] [id number] [address] [place] [id number] Aug, [facility] [address] [id number] [address] [place] [address] Aug, [facility] [address] [id number] [address] [place] [address] Aug, [facility] [address] [id number] [address] [place] [address], [place] [address] 24 Aug, 2012 [facility] [address] [id number] [address] [place] [address], [place] [address] 23 Aug, 2012 [facility] [address] [id number] [address] [place] [address], [place] [address] 23 Aug, 2012 [facility] [address] [id number] [address] [place] [address], [place] [address] 23 Aug, 2012 [facility] [address] [id number] [address] [place] [address], [place] [address] 23 Aug, 2012 [facility] [address] [id number] [address] [place] [address], [place] [address] Aug, 2012 [facility] [address] [id number] [address] [place] [address], [place] [address] 22 Aug, 2012 [facility] [address] [id number] [address] [place] [address], [place] [address] 18 Aug, 2012 [facility] [address] [id number] [address] [place] [address], [place] [address] 18 Aug, 2013 [facility] [address] [id number] [address] [place] [address], [place] [address] 18 Aug, 2012 [facility] [address] [id number] [address] [place] [address], [place] [address] 18 Aug, 2013 [facility] [address] [id number] [address] [place] [address], [place] [address] 17 Aug, 2012 [facility] [address] [id number] [address] [place] [address], [place] [address] 14 Aug, 2013 [facility] [address] [id number] [address] [place] [address], [place] [address] 14 Aug, 2013 [facility] [address] [id number] [address] [place] [address], [place] [address] Aug, [facility] [address] [id number] [address] [place] [address], [place] [address] 20 Jul, 2013 [facility] [address] [id number] [address] [place] [address], [place] [address] 19 Jul, 2013 [facility] [address] [id number] [address] [place] [address], [place] [address] 18 Jul, 2013 [facility] [address] [id number] [address] [place] [address], [place] [address] 11 Jul, 2013 [facility] [address] [id number] [address] [place] [address], [place] [address] 11 Jul, 2013 [facility] [address] [id number] [address] [place] [address], [place] [address] Jun, [facility] [address] [id number] [address] [place] [address], [place] [address] Jun, [facility] [address] [id number] [address] [place] [address], [place] [address] Jun, [facility] [address] [id number] [address] [place] [address], [place] [address] 15 Jun, 2013 [facility] [address] [id number] [address] [place] [address], [place] [address] Jun, [facility] [address] [id number] [address] [place] [address], [place] [address] Jun, [facility] [address] [id number] [address] [place] [address], [place] [address] Jun, [facility] [address] [id number] [address] [place] [address], [place] [address] Jun, [facility] [address] [id number] [address] [place] [address], [place] [address] Jun, [facility] [address] [id number] [address] [place] [address], [place] [address] Jun, [facility] [address] [id number] [address] [place] [address], [place] [address] May, [facility] [address] [id number] [address] [place] [address], [place] [address] May, [facility] [address] [id number] [address] [place] [address], [place] [address] May, [facility] [address] [id number] [address] [place] [address], [place] [address] May, [facility] [address] [id number] [address] [place] [address], [place] [address] May, [facility] [address] [id number] [address] [place] [address], [place] [address] May, [facility] [address] [id number] [address] [place] [address], [place] [address] May, [facility] [address] [id number] [address] [place] [address], [place] [address] May, [facility] [address] [id number] [address] [place] [address], [place] [address] May, [facility] [address] [id number] [address] [place] [address], [place] [address] Apr, [facility] [address] [id number] [address] [place] [address], [place] [address] Apr, [facility] [address] [id number] [address] [place] [address], [place] [address] Apr, [facility] [address] [id number] [address] [place] [address], [place] [address] Apr, [facility] [address] [id number] [address] [place] [address], [place] [address] Apr, [facility] [address] [id number] [address] [place] [address], [place] [address] Apr, [facility] [address] [id number] [address] [place] [address], [place] [address] Apr, [facility] [address] [id number] [address] [place] [address], [place] [address] March, [facility] [address] [id number] [facility] [place] [address] Feb, [facility] [address] [id number] [address] [place] [address], [place] [address] Feb, [facility] [address] [id number] [address] [place] [address], [place] [address] Feb, [facility] [address] [id number] [address] [place] [address], [place] [address] 28 Jan, 2013 [facility] [address] [id number] [address] [place] [address], [place] [address] Jan, [facility] [address] [id number] [address] [place] [address], [place] [address] 19 Jan, 2013 [facility] [address] [id number] [address] [place] [address], [place] [address] 14 Jan, 2013 [facility] [address] [id number] [address] [place] [address], [place] [address] 12 Jan, 2013 [facility] [address] [id number] [address] [place] [address], [place] [address] 08 Jan, 2013 [facility] [address] [id number] [address] [place] [address], [place] [address] 07 Jan, 2013 [facility] [address] [id number] [address] [place] [address], [place] [address] 04 Jan, 2013 [facility] [address] [id number] [address] [place] [address], [place] [address] 28 Dec, 2012 [facility] [address] [id number] [address] [place] [address], [place] [address] Dec, [facility] [address] [id number] [address] [place] [address], [place] [address] 13 Dec, 2012 [facility] [address] [id number] [address] [place] [address], [place] [address] Dec, [facility] [address] [id number] [address] [place] [address], [place] [address] 07 Dec, 2012 [facility] [address] [id number] [address] [place] [address], [place] [address] 06 Dec, 2012 [facility] [address] [id number] [address] [place] [address], [place] [address] 05 Dec, 2012 [facility] [address] [id number] [address] [place] [address], [place] [address] Nov, [facility] [address] [id number] [address] [place] [address], [place] [address] 24 Nov, 2012 [facility] [address] [id number] [address] [place] [address], [place] [address] 18 Nov, 2012 [facility] [address] [id number] [address] [place] [address], [place] [address] 15 Nov, 2012 [facility] [address] [id number] [address] [place] [address], [place] [address] Nov, [facility] [address] [id number] [address] [place] [address], [place] [address] Nov, [facility] [address] [id number] [address] [place] [address], [place] [address] Nov, [facility] [address] [id number] [address] [place] [address], [place] [address] Oct, [facility] [address] [id number] [address] [place] [address], [place] [address] 31 Oct, 2012 [facility] [address] [id number] [address] [place] [address], [place] [address] Oct, [facility] [address] [id number] [address] [place] [address], [place] [address] Oct, [facility] [address] [id number] [address] [place] [address], [place] [address] Oct, [facility] [address] [id number] [address] [place] [address], [place] [address] 17 Oct, 2012 [facility] [address] [id number] [address] [place] [address], [place] [address] 07 Oct, 2012 [facility] [address] [id number] [address] [place] [address], [place] [address] Oct, [facility] [address] [id number] [address] [place] [address], [place] [address] Oct, [facility] [address] [id number] [address] [place] [address], [place] [address] Oct, [facility] [address] [id number] [address] [place] [address], [place] [address] Oct, [facility] [address] [id number] [address] [place] [address], [place] [address] Oct, [facility] [address] [id number] [address] [place] [address], [place] [address] Sep, [facility] [address] [id number] [address] [place] [address], [place] [address] Sep, [facility] [address] [id number] [address] [place] [address], [place] [address] Sep, [facility] [address] [id number] [address] [place] [address], [place] [address] Sep, [facility] [address] [id number] [address] [place] [address], [place] [address] Sep, [facility] [address] [id number] [address] [place] [address], [place] [address] Sep, [facility] [address] [id number] [address] [place] [address], [place] [address] Sep, [facility] [address] [id number] [address] [place] [address], [place] [address] Sep, [facility] [address] [id number] [address] [place] [address], [place] [address] Sep, [facility] [address] [id number] [address] [place] [address], [place] [address] Sep, [facility] [address] [id number] [address] [place] [address], [place] [address] Sep, [facility] [address] [id number] [address] [place] [address], [place] [address] Aug, [facility] [address] [id number] [address] [place] [address], [place] [address] Aug, [facility] [address] [id number] [address] [place] [address], [place] [address] Aug, [facility] [address] [id number] [address] [place] [address], [place] [address] Aug, [facility] [address] [id number] [address] [place] [address], [place] [address] Aug, [facility] [address] [id number] [address] [place] [address], [place] [address] Aug, [facility] [address] [id number] [address] [place] [id number] Aug, [facility] [address] [id number] [address] [place] [address], [place] [address] Aug, [facility] [address] [id number] [address] [place] [id number] Aug, [facility] [address] [id number] [address] [place] [id number] Aug, [facility] [address] [id number] [address] [place] [id number] 22 Jul, 2012 [facility] [address] [id number] [address] [place] [address], [place] [address] 20 Jul, 2011 [facility] [address] [id number] [address] [place] [id number] 10 Jul, 2011 [facility] [address] [id number] [address] [place] [id number] 06 Jul, 2012 [facility] [address] [id number] [address] [place] [address], [place] [address] Jun, [facility] [address] [id number] [address] [place] [address], [place] [address] Jun, [facility] [address] [id number] [address] [place] [address], [place] [address] Jun, [facility] [address] [id number] [address] [place] [address], [place] [address] Jun, [facility] [address] [id number] [address] [place] [address], [place] [address] Jun, [facility] [address] [id number] [address] [place] [address], [place] [address] Jun, [facility] [address] [id number] [address] [place] [address], [place] [address] Jun, [facility] [address] [id number] [address] [place] [address], [place] [address] May, [facility] [address] [id number] [address] [place] [address], [place] [address] May, [facility] [address] [id number] [address] [place] [address], [place] [address] May, [facility] [address] [id number] [address] [place] [address], [place] [address] May, [facility] [address] [id number] [address] [place] [address], [place] [address] May, [facility] [address] [id number] [address] [place] [address], [place] [address] Apr, [facility] [address] [id number] [address] [place] [address], [place] [address] Apr, [facility] [address] [id number] [address] [place] [address], [place] [address] Apr, [facility] [address] [id number] [address] [place] [address], [place] [address] Apr, [facility] [address] [id number] [address] [place] [address], [place] [address] Apr, [facility] [address] [id number] [address] [place] [address], [place] [address] March, [facility] [address] [id number] [address] [place] [address], [place] [address] March, [facility] [address] [id number] [address] [place] [address], [place] [address] March, [facility] [address] [id number] [address] [place] [address], [place] [address] March, [facility] [address] [id number] [address] [place] [address], [place] [address] March, [facility] [address] [id number] [address] [place] [address], [place] [address] March, [facility] [address] [id number] [address] [place] [address], [place] [address] March, [facility] [address] [id number] [address] [place] [address], [place] [address] March, [facility] [address] [id number] [address] [place] [address], [place] [address] March, [facility] [address] [id number] [address] [place] [address], [place] [address] March, [facility] [address] [id number] [address] [place] [address], [place] [address] Feb, [facility] [address] [id number] [address] [place] [address], [place] [address] Feb, [facility] [address] [id number] [address] [place] [address], [place] [address] Feb, [facility] [address] [id number] [address] [place] [address], [place] [address] Feb, [facility] [address] [id number] [address] [place] [address], [place] [address] Feb, [facility] [address] [id number] [address] [place] [address], [place] [address] Feb, [facility] [address] [id number] [address] [place] [address], [place] [address] Feb, [facility] [facility] [address] [id number] [address] [place] [address], [place] [phone] Feb, [facility] [address] [id number] [address] [place] [address], [place] [phone] Feb, [facility] [address] [id number] [address] [place] [address], [place] [phone] Jan, [facility] [address] [id number] [address] [place] [address], [place] [phone] Jan, [facility] [address] [id number] [address] [place] [address], [place] [phone] Jan, [facility] [address] [id number] [address] [place] [address], [place] [address] Jan, [facility] [address] [id number] [address] [place] [address], [place] [phone] Dec, [facility] [address] [id number] [address] [place] [address], [place] [phone] Dec, [facility] [address] [id number] [address] [place] [address], [place] [address] Nov, [facility] [address] [id number] [address] [place] [address], [place] [phone] Nov, [facility] [address] [id number] [address] [place] [address], [place] [phone] Nov, [facility] [address] [id number] [address] [place] [address], [place] [phone] 16 Nov, 2011 [facility] [address] [id number] [address] [place] [address], [place] [address] Nov, [facility] [address] [id number] [address] [place] [phone] Oct, [facility] [address] [id number] [address] [place] [phone] Oct, [facility] [address] [id number] [address] [place] [phone] Oct, [facility] [address] [id number] [address] [place] [phone] Oct, [facility] [address] [id number] [address] [place] [phone] Oct, [facility] [address] [facility] [id number] [address] [place] [phone] Oct, [facility] [address] [id number] [address] [place] [phone] Oct, [facility] [address] [facility] [id number] [address] [place] [phone] Oct, [facility] [address] [facility] [id number] [address] [place] [phone] Sep, IMMUNIZATIONS No Known Immunizations SOCIAL HISTORY [...] History No Surgical history information Hospitalization History [facility]- Urosepsis, ab d pain and fever, discharged 11/27/2017 11/26/2017 Hospitalization History [facility]- Went Unrepsonsive, Hit head 2017 Hospitalization History [facility]- Back Pain 8
--- OUTSIDE RECORDS SUMMARY | 2020-06-18 14:37 | XMS REPORT ---
Author Author Sanjuanita Abdul Doctor Organization [facility] Address Unknown Phone Unavailable Care Team Providers Care Mailing Manager Name Role Phone Migration, Doctor Unavailable Unavailable PROBLEMS Type Condition ICD9-CM Code WLE97-TJ Code Onset Dates Condition S tatus SNOMED Code Problem Hypertension I10 Active 0451517 3 Problem Hyperlipidemia E78.5 Active 56226 004 Problem Coronary artery disease I25.10 Active 46653307 Problem Low back pain M54.5 Active 801705 009 Problem Other chronic pain G89.29 Active 8 0351882 Problem Ventral hernia without obstruction or gangrene K43 .9 Active 629690541 Problem Type 2 diabetes mellitus wit hout complication, without long-term current use of insulin E11.9 Active 288638166 Problem Anxiety F41.9 Active 80807655 Problem Peripheral vascular disease I73.9 Ac tive 672100171 Problem Insomnia G47.00 Active 679918018 Problem Microcytic anemia D50.9 Active 23 3690384 Problem Pharyngeal dysphagia R13.13 Active 87636336479083 Problem Other iron deficiency anemia D50.8 A ctive 83514502 Problem Reactive depression F32.9 Active 86497295 Problem Paroxysmal atrial fibrillation I48.0 Active 037930885 Problem 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 Active 36829366 Problem Encounter for suprapubic catheter care Z43.5 Active 967538827 Problem Neurogenic bladder N31.9 Active 3 28112816 ALLERGIES No Information ENCOUNTERS Encounter Location Date Diagnosis [facility] [address] [facility] [id number] [address] [place] [address] March, [facility] [address] [facility] [id number] [address] [place] [address] March, Anxiety F41.9 and Strain of right shoulder, subsequent encounter S46.911D [facility] [address] [facility] [id number] [address] [place] [address] Feb, Anxiety F41.9 and Strain of right shoulder, subsequent encounter S46.911D [facility] [address] [id number] [address] [place] [address] 24 Jan, 2020 Anxiety F41.9 and Strain of right shoulder, subsequent encounter S46.911D [facility] [address] [id number] [address] [place] [address] 17 Jan, 2020 Via [facility] [email or web address] [address] [place] [id number] Jan, Neurogenic bladder N31.9 [facility] [address] [id number] [address] [place] [address] Dec, 2019 [facility] [address] [id number] [address] [place] [address] Dec, 2019 [place] [address] [id number] [address] [place] [address] Dec, Anxiety F41.9 and Strain of right shoulder, subsequent encounter S46.911D [facility] [address] [id number] [address] [place] [address] 10 Dec, 2019 Other iron deficiency anemia D50.8 [facility] [address] [id number] [address] [place] [address] 04 Dec, 2019 Via [facility] [email or web address] [address] [place] [id number] Dec, Encounter for suprapubic catheter care Z 43.5 and Microcytic anemia D50.9 [facility] [address] [id number] [address] [place] [address] 03 Dec, 2019 [facility] [address] [id number] [address] [place] [address] Nov, Anxiety F41.9 and Strain of right shoulder, subsequent encounter S46.911D [facility] [address] [id number] [address] [place] [address] Nov, Hypertension I10 [facility] [address] [place] [id number] Nov, Pneumonia of both lungs due to infectiou s organism, unspecified part of lung J18.9 and Suprapubic catheter Z93.59 [facility] [address] [id number] [address] [place] [address] Nov, Hypertension I10 and Reactiv e depression F32.9 [facility] [address] [id number] [address] [place] [address] Oct, Strain of right shoulder, scherer bsequent encounter S46.911D and Anxiety F41.9 [place] [address] [id number] [address] [place] [address] Oct, Via [facility] [employer] [address] [place] [id number] Oct, Suprapubic catheter Z93.59 and Candidias is, intertriginous B37.2 [place] [address] [id number] [address] [place] [address] Oct, Suprapubic catheter Z93.59 [facility] [address] [id number] [address] [place] [address] Oct, Anxiety F41.9 and Strain of right shoulder, subsequent encounter S46.911D [facility] [address] [id number] [address] [place] [address] Sep, [facility] [address] [id number] [address] [place] [address] Sep, [facility] [address] [id number] [address] [place] [address] Sep, Via [facility] [address] [place] [id number] Sep, Suprapubic catheter Z93.59 [facility] [address] [id number] [address] [place] [address] Sep, Anxiety F41.9 and Strain of right shoulder, subsequent encounter S46.911D [facility] [address] [id number] [address] [place] [address] Aug, [facility] [address] [id number] [address] [place] [address] Aug, [facility] [address] [id number] [address] [place] [address] Aug, Anxiety F41.9 and Strain of right shoulder, subsequent encounter S46.911D Via [facility] [address] [place] [id number] Aug, Suprapubic catheter Z93.59 [facility] [address] [id number] [address] [place] [address] Jul, Strain of right shoulder, scherer bsequent encounter S46.911D and Anxiety F41.9 [facility] [address] [id number] [address] [place] [address] Jul, Anxiety F41.9 [facility] [address] [id number] [address] [place] [address] Jun, [facility] [address] [id number] [address] [place] [address] Jun, [facility] [address] [id number] [address] [place] [address] Jun, [facility] [address] [id number] [address] [place] [address] Jun, Strain of right shoulder, scherer bsequent encounter S46.911D [facility] [address] [id number] [address] [place] [address] Jun, Strain of right shoulder, scherer bsequent encounter S46.911D [facility] [address] [id number] [address] [place] [address] Jun, Anxiety F41.9 Via [facility] [employer] [address] [place] [id number] Jun, Neurogenic bladder N31.9 and Anxiety F41 .9 Via [facility] [employer] [address] [place] [id number] May, Anxiety F41.9 [place] [address] [id number] [address] [place] [address] May, Dysuria R30.0 [place] [address] [id number] [address] [place] [address] May, Strain of right shoulder, scherer bsequent encounter S46.911D and Anxiety F41.9 [place] [address] [id number] [address] [place] [address] Apr, [facility] [address] [place] [id number] Apr, Strain of right shoulder, subsequent enc ounter S46.911D [place] [address] [facility] [id number] [address] [place] [address] 14 Apr, 2019 Strain of right shoulder, scherer bsequent encounter S46.911D and Anxiety F41.9 Via [facility] [employer] [address] [place] [id number] 13 Apr, 2019 Type 2 diabetes mellitus without complic ation, without long-term current use of insulin E11.9 and Neurogenic bladder N31.9 Via [facility] [employer] [address] [place] [id number] Apr, Strain of right shoulder, subsequent enc ounter S46.911D ; History of GI bleed Z87.19 ; Neurogenic bladder N31.9 and Reactive depression F32.9 [place] [address] [id number] [address] [place] [address] 10 Apr, 2019 Acute pain of left shoulder M25.512 [place] [address] [id number] [address] [place] [address] 07 Apr, 2019 [place] [address] [id number] [address] [place] [address] 06 Apr, 2019 Anxiety F41.9 and 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 [facility] [address] [place] [id number] March, Gastrointestinal hemorrhage associated w ith acute gastritis K29.01 [facility] [address] [id number] [address] [place] [address] March, Via [employer] [address] [place] [id number] March, Bronchitis J40 [facility] [address] [id number] [address] [place] [address] March, Cough R05 [facility] [address] [id number] [address] [place] [address] March, Other chronic pain G89.29 [facility] [address] [id number] [address] [place] [address] March, Anxiety F41.9 [facility] [address] [id number] [address] [place] [address] March, [facility] [address] [id number] [address] [place] [address] Feb, Other chronic pain G89.29 [facility] [address] [id number] [address] [place] [address] Feb, Anxiety F41.9 [facility] [address] [id number] [address] [place] [address] Feb, Other chronic pain G89.29 Via [employer] [address] [place] [id number] Feb, Neurogenic bladder N31.9 and Suprapubic catheter Z93.59 [facility] [address] [id number] [address] [place] [address] Jan, Anxiety F41.9 [facility] [address] [id number] [address] [place] [address] Dec, Anxiety F41.9 [facility] [address] [id number] [address] [place] [address] Dec, Other chronic pain G89.29 an d Anxiety F41.9 [facility] [address] [id number] [address] [place] [address] Dec, Via [facility] [address] [place] [id number] Dec, Neurogenic bladder N31.9 and Suprapubic catheter Z93.59 [facility] [address] [id number] [address] [place] [address] Nov, Other chronic pain G89.29 an d Anxiety F41.9 [facility] [address] [id number] [address] [place] [address] Nov, Via [facility] [address] [place] [id number] Nov, Suprapubic catheter Z93.59 [facility] [address] [id number] [address] [place] [address] Oct, Other chronic pain G89.29 an d Anxiety F41.9 [facility] [address] [id number] [address] [place] [address] Oct, [facility] [address] [id number] [address] [place] [address] Oct, Suprapubic catheter Z93.59 [facility] [address] [id number] [address] [place] [address] Oct, Via [facility] [address] [place] [id number] Oct, [facility] [address] [id number] [address] [place] [address] Oct, Anxiety F41.9 [facility] [address] [id number] [address] [place] [address] Oct, Anxiety F41.9 Via [employer] [address] [place] [id number] Oct, Other chronic pain G89.29 [facility] [address] [id number] [address] [place] [address] 14 Sep, 2018 Other chronic pain G89.29 Via [facility] [address] [place] [id number] Sep, Suprapubic catheter Z93.59 and Cervicalg ia M54.2 [facility] [address] [id number] [address] [place] [address] Sep, [facility] [address] [id number] [address] [place] [address] Sep, [facility] [address] [id number] [address] [place] [address] Sep, Via [employer] [address] [place] [id number] Aug, Cystitis N30.90 [facility] [address] [id number] [address] [place] [address] Aug, [facility] [address] [id number] [address] [place] [address] Aug, Other chronic pain G89.29 [facility] [address] [id number] [address] [place] [address] Aug, Via [facility] [address] [place] [id number] Aug, Encounter for suprapubic catheter care Z 43.5 [facility] [address] [id number] [address] [place] [address] Jul, Via [facility] [address] [place] [id number] Jul, [facility] [address] [id number] [address] [place] [address] Jul, Other chronic pain G89.29 [facility] [address] [id number] [address] [place] [address] Jul, [facility] [address] [id number] [address] [place] [address] Jul, Via [employer] [address] [place] [id number] Jun, 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 [place] [address] [id number] [address] [place] [address] Jun, Other chronic pain G89.29 [place] [address] [id number] [address] [place] [address] Jun, Via [employer] [address] [place] [id number] May, Anxiety F41.9 ; Type 2 diabetes mellitus without complication, without long-term current use of insulin E11.9 ; Hypertension I10 ; Low back pain M54.5 ; Paroxysmal atrial fibrillation I48.0 and 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 [place] [address] [id number] [address] [place] [address] May, Other chronic pain G89.29 Via [employer] [address] [place] [id number] May, Low back pain M54.5 [place] [address] [id number] [address] [place] [address] May, [place] [address] [id number] [address] [place] [address] Apr, Other chronic pain G89.29 [place] [address] [id number] [address] [place] [address] Apr, [place] [address] [id number] [address] [place] [address] Apr, Via [facility] [address] [place] [id number] Apr, Closed compression fracture of L3 lumbar vertebra with routine healing, subsequent encounter S32.030D [facility] [address] [place] [id number] Apr, Low back pain M54.5 [facility] [address] [place] [id number] Apr, Coccydynia M53.3 [facility] [address] [id number] [address] [place] [address] March, [facility] [address] [id number] [address] [place] [address] March, Other chronic pain G89.29 [facility] [address] [id number] [address] [place] [address] March, [facility] [address] [id number] [address] [place] [address] March, [facility] [address] [id number] [address] [place] [address] Feb, [facility] [address] [id number] [address] [place] [address] Feb, Other chronic pain G89.29 Via [employer] [address] [place] [id number] Feb, Other chronic pain G89.29 and Anxiety F4 1.9 [facility] [address] [id number] [address] [place] [address] Feb, [facility] [address] [id number] [address] [place] [address] Jan, [facility] [address] [id number] [address] [place] [address] Jan, [facility] [address] [id number] [address] [place] [address] Jan, [facility] [address] [id number] [address] [place] [address] Jan, [facility] [address] [id number] [address] [place] [address] Dec, Via [employer] [address] [place] [id number] Dec, Peripheral vascular disease I73.9 ; 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 ; Other chronic pain G89.29 ; Anxiety F41.9 ; Reactive depression F32.9 ; Insomnia G47.00 and Type 2 diabetes mellitus without complication, without long-term current use of insulin E11.9 [facility] ADRIENNE SANCHEZ [id number] [address] Nov, [facility] [address] [id number] [place] [facility] [place] [id number] Nov, Anxiety F41.9 [facility] [address] [facility] [id number] [address] [place] [address] Nov, [place] [address] [id number] [place] [facility] [place] [id number] Nov, Anxiety F41.9 Via [email or web address] [address] [place] [id number] Nov, Status post surgery Z98.890 ; Confused R 41.0 ; Anxiety F41.9 and Other chronic pain G89.29 [place] [address] [id number] [place] [id number] Nov, Other chronic pain G89.29 [place] [address] [facility] [id number] [address] [place] [address] Oct, [place] [address] [id number] [place] [id number] Oct, Other chronic pain G89.29 [place] [address] [facility] [id number] [address] [place] [address] Oct, Anxiety F41.9 [place] [address] [id number] [place] [id number] Sep, Other chronic pain G89.29 [place] [address] [id number] [place] [id number] Sep, Via [email or web address] [address] [place] [id number] Aug, Dysuria R30.0 and Anxiety F41.9 [place] [address] [id number] [address] [place] [address] 16 Aug, 2017 [facility] [address] [id number] [place] [id number] Aug, Other chronic pain G89.29 [facility] [address] [id number] [address] [place] [address] Jul, Other chronic pain G89.29 [facility] [address] [id number] [place] [id number] Jun, [facility] [address] [id number] [place] [id number] Jun, Other chronic pain G89.29 [facility] [address] [id number] [address] [place] [address] Jun, [facility] [address] [facility] [id number] [address] [place] [address] May, Other chronic pain G89.29 [facility] [address] [id number] [address] [place] [address] Apr, Other chronic pain G89.29 Via [facility] [address] [place] [id number] Apr, Reactive depression F32.9 and Pharyngeal dysphagia R13.13 [facility] [address] [facility] [id number] [address] [place] [address] Apr, Urinary tract infection with out hematuria, site unspecified N39.0 [facility] [address] [facility] [id number] [address] [place] [address] March, Other chronic pain G89.29 [facility] [address] [id number] [address] [place] [address] Feb, Other chronic pain G89.29 [facility] [address] [id number] [address] [place] [address] Feb, [facility] [address] [id number] [place] [id number] Feb, Via [facility] [address] [place] [id number] Feb, Dysuria R30.0 and Ventral hernia without obstruction or gangrene K43.9 [facility] [address] [id number] [address] [place] [address] Jan, Other chronic pain G89.29 [facility] [address] [id number] [place] [id number] Dec, Other chronic pain G89.29 [facility] [address] [id number] [address] [place] [address] Nov, Other chronic pain G89.29 [facility] [address] [place] [id number] Nov, Lymphadenitis I88.9 [facility] [address] [id number] [address] [place] [id number] Nov, Other chronic pain G89.29 [facility] [address] [id number] [address] [place] [phone] Nov, [facility] [address] [id number] [place] [id number] Nov, Other chronic pain G89.29 Via [facility] [address] [place] [id number] Oct, Low back pain M54.5 ; Hypertension I10 a nd Type 2 diabetes mellitus without complication, without long-term current use of insulin E11.9 [facility] [address] [id number] [address] [place] [id number] Oct, [facility] [address] [id number] [address] [place] [id number] Oct, [facility] [address] [id number] [address] [place] [phone] Oct, [facility] [address] [id number] [address] [place] [phone] Oct, [facility] [address] [id number] [address] [place] [id number] Sep, [facility] [address] [id number] [address] [place] [id number] Sep, [facility] [address] [id number] [address] [place] [phone] Aug, Other chronic pain G89.29 [facility] [address] [id number] [address] [place] [phone] Jul, [facility] [address] [id number] [address] [place] [id number] Jul, [facility] [address] [id number] [address] [place] [id number] Jul, [facility] [address] [id number] [address] [place] [phone] Jun, [facility] [address] [id number] [address] [place] [phone] Jun, Via [facility] [address] [place] [id number] Jun, Low back pain M54.5 ; Other chronic pain G89.29 and Coronary artery disease I25.10 [facility] [address] [id number] [address] [place] [id number] Jun, [facility] [address] [id number] [address] [place] [phone] May, [facility] [address] [address] [id number] [address] [place] [id number] May, [facility] [address] [id number] [address] [place] [address] May, Other chronic pain G89.29 [facility] [address] [id number] [address] [place] [address] May, [facility] [address] [id number] [address] [place] [address] 28 Apr, 2016 [facility] [address] [id number] [address] [place] [id number] 17 Apr, 2016 Acute cystitis without hemat uria N30.00 [facility] [address] [id number] [address] [place] [address] 16 Apr, 2016 Acute cystitis without hemat uria N30.00 ; Coronary artery disease I25.10 ; Low back pain M54.5 and Other chronic pain G89.29 [facility] [address] [id number] [address] [place] [address] 13 Apr, 2016 Other chronic pain G89.29 [facility] [address] [id number] [address] [place] [address] March, Other chronic pain G89.29 [facility] [address] [id number] [address] [place] [id number] 18 Feb, 2016 [facility] [address] [id number] [address] [place] [address] 15 Feb, 2016 Arthritis M19.90 [facility] [address] [id number] [address] [place] [id number] Feb, [facility] [address] [id number] [address] [place] [address] 30 Jan, 2016 [facility] [address] [id number] [address] [place] [address] Jan, [facility] [address] [id number] [address] [place] [address] Jan, Other chronic pain G89.29 [facility] [address] [id number] [address] [place] [address] Jan, Hypertension I10 ; Coronary artery disease I25.10 and Insomnia G47.00 [facility] [address] [id number] [address] [place] [address] Jan, [facility] [address] [id number] [address] [place] [address] Dec, Right hip pain M25.551 [facility] [address] [id number] [address] [place] [id number] Dec, [facility] [address] [id number] [address] [place] [address] Dec, [facility] [address] [id number] [address] [place] [address] Dec, [facility] [address] [id number] [address] [place] [address] Dec, Other chronic pain G89.29 [facility] [address] [id number] [address] [place] [address] Dec, [facility] [address] [id number] [address] [place] [address] Nov, [facility] [address] [id number] [address] [place] [address] Nov, Other chronic pain G89.29 [facility] [address] [id number] [address] [place] [address] Nov, Right hip pain M25.551 and C oronary artery disease I25.10 [facility] [address] [id number] [address] [place] [address] Nov, Other chronic pain G89.29 [facility] [address] [id number] [address] [place] [address] Oct, [facility] [address] [id number] [address] [place] [phone] Oct, [facility] [address] [id number] [address] [place] [address] Sep, [facility] [address] [id number] [address] [place] [address] Sep, [facility] [address] [id number] [address] [place] [id number] Aug, [facility] [address] [id number] [address] [place] [address] Aug, Hypertension I10 ; Coronary artery disease I25.10 and Arthritis M19.90 [facility] [address] [id number] [address] [place] [address] Jun, [facility] [address] [id number] [address] [place] [address] Jun, Essential hypertension, jayson gn 401.1 ; Other chronic pain 338.29 and Chronic airway obstruction, not elsewhere classified 496 [facility] [address] [id number] [address] [place] [address] Jun, [facility] [address] [id number] [address] [place] [id number] Jun, [facility] [address] [id number] [address] [place] [phone] Jun, [facility] [address] [id number] [address] [place] [address] May, [facility] [address] [id number] [address] [place] [address] May, [facility] [address] [id number] [address] [place] [address] Apr, [facility] [address] [id number] [address] [place] [address] Apr, [facility] [address] [id number] [address] [place] [address] Apr, [facility] [address] [id number] [address] [place] [address] March, [facility] [address] [id number] [address] [place] [address] March, [facility] [address] [id number] [address] [place] [address] March, [facility] [address] [id number] [address] [place] [address], [place] [address] March, [facility] [address] [id number] [address] [place] [address], [place] [address] March, Sialadenitis 527.2 [facility] [address] [id number] [address] [place] [address], [place] [address] Feb, [facility] [address] [id number] [address] [place] [address], [place] [address] Feb, [facility] [address] [id number] [address] [place] [address], [place] [address] Feb, [facility] [address] [id number] [address] [place] [address], [place] [address] Feb, [facility] [address] [id number] [address] [place] [id number] Feb, [facility] [address] [id number] [address] [place] [address], [place] [address] Jan, [facility] [address] [id number] [address] [place] [address], [place] [address] Jan, [facility] [address] [id number] [address] [place] [address], [place] [address] Jan, [facility] [address] [id number] [address] [place] [address], [place] [address] Jan, [facility] [address] [id number] [address] [place] [id number] Jan, [facility] [address] [id number] [address] [place] [address] Jan, [facility] [address] [id number] [address] [place] [address], [place] [address] Dec, [facility] [address] [id number] [address] [place] [address] Dec, [facility] [address] [id number] [address] [place] [address], [place] [address] Dec, [facility] [address] [id number] [address] [place] [address], [place] [address] Dec, [facility] [address] [id number] [address] [place] [address], [place] [address] Dec, [facility] [address] [id number] [address] [place] [address], [place] [address] Dec, [facility] [address] [id number] [address] [place] [address], [place] [address] Nov, [facility] [address] [id number] [address] [place] [address], [place] [address] Nov, [facility] [address] [id number] [address] [place] [address], [place] [address] Nov, [facility] [address] [id number] [address] [place] [address], [place] [address] Nov, [facility] [address] [id number] [address] [place] [address], [place] [address] Nov, [facility] [address] [id number] [address] [place] [address], [place] [address] Nov, [facility] [address] [id number] [address] [place] [address], [place] [address] Nov, [facility] [address] [id number] [address] [place] [address], [place] [address] Nov, [facility] [address] [id number] [address] [place] [address], [place] [address] Nov, [facility] [address] [id number] [address] [place] [address], [place] [address] Nov, [facility] [address] [id number] [address] [place] [address], [place] [address] Nov, [facility] [address] [id number] [address] [place] [address], [place] [address] Nov, [facility] [address] [id number] [address] [place] [address], [place] [address] Nov, [facility] [address] [id number] [address] [place] [address], [place] [address] Nov, [facility] [address] [id number] [address] [place] [address], [place] [address] Oct, [facility] [address] [id number] [address] [place] [address], [place] [address] Oct, [facility] [address] [id number] [address] [place] [address], [place] [address] Oct, [facility] [address] [id number] [address] [place] [address], [place] [address] Oct, [facility] [address] [id number] [address] [place] [address], [place] [address] Oct, [facility] [address] [id number] [address] [place] [address], [place] [address] Oct, [facility] [address] [id number] [address] [place] [address], [place] [address] Oct, [facility] [address] [id number] [address] [place] [address], [place] [address] Oct, [facility] [address] [id number] [address] [place] [address], [place] [address] Oct, [facility] [address] [id number] [address] [place] [address], [place] [address] Sep, [facility] [address] [id number] [address] [place] [address], [place] [address] Sep, [facility] [address] [id number] [address] [place] [address], [place] [address] Sep, [facility] [address] [id number] [address] [place] [address], [place] [address] Sep, [facility] [address] [id number] [address] [place] [address], [place] [address] Sep, [facility] [address] [id number] [address] [place] [address], [place] [address] Sep, [facility] [address] [id number] [address] [place] [address], [place] [address] Sep, [facility] [address] [id number] [address] [place] [address], [place] [address] Sep, [facility] [address] [id number] [address] [place] [address], [place] [address] Sep, [facility] [address] [id number] [address] [place] [address], [place] [address] Sep, [facility] [address] [id number] [address] [place] [address], [place] [address] Sep, [facility] [address] [id number] [address] [place] [address], [place] [address] Sep, [facility] [address] [id number] [address] [place] [address], [place] [address] Aug, [facility] [address] [id number] [address] [place] [address], [place] [address] Aug, [facility] [address] [id number] [address] [place] [address], [place] [address] Aug, [facility] [address] [id number] [address] [place] [address], [place] [address] Aug, [facility] [address] [id number] [address] [place] [address], [place] [address] Aug, [facility] [address] [id number] [address] [place] [address], [place] [address] Aug, [facility] [address] [id number] [address] [place] [address], [place] [address] Aug, [facility] [address] [id number] [address] [place] [address], [place] [address] Aug, [facility] [address] [id number] [facility] [place] [address] 30 Jul, 2013 [facility] [address] [id number] [address] [place] [address], [place] [address] 30 Jul, 2013 [facility] [address] [id number] [address] [place] [address], [place] [address] 30 Jul, 2013 [facility] [address] [id number] [address] [place] [address], [place] [address] 30 Jul, 2013 [facility] [address] [id number] [address] [place] [address], [place] [address] 25 Jul, 2013 [facility] [address] [id number] [address] [place] [address], [place] [address] 25 Jul, 2013 [facility] [address] [id number] [address] [place] [address], [place] [address] 15 Jul, 2014 [facility] [address] [id number] [address] [place] [address], [place] [address] 15 Jul, 2014 [facility] [address] [id number] [address] [place] [address], [place] [address] 11 Jul, 2014 [facility] [address] [id number] [address] [place] [address], [place] [address] Jul, [facility] [address] [id number] [address] [place] [address], [place] [address] Jun, [facility] [address] [id number] [address] [place] [address], [place] [address] Jun, [facility] [address] [id number] [address] [place] [address], [place] [address] Jun, [facility] [address] [id number] [address] [place] [address], [place] [address] Jun, [facility] [address] [id number] [address] [place] [address], [place] [address] Jun, [facility] [address] [id number] [address] [place] [address], [place] [address] Jun, [facility] [address] [id number] [facility] [place] [address] Jun, [facility] [address] [id number] [facility] [place] [address] Jun, [facility] [address] [id number] [facility] [place] [address] Jun, [facility] [address] [id number] [facility] [place] [address] Jun, [facility] [address] [id number] [address] [place] [address], [place] [address] Jun, [facility] [address] [id number] [address] [place] [address], [place] [address] Jun, [facility] [address] [id number] [address] [place] [address], [place] [address] Jun, [facility] [address] [id number] [address] [place] [address], [place] [address] Jun, [facility] [address] [id number] [address] [place] [address], [place] [address] Jun, [facility] [address] [id number] [address] [place] [address], [place] [address] Jun, [facility] [address] [id number] [address] [place] [address], [place] [address] Jun, [facility] [address] [id number] [address] [place] [address], [place] [address] Jun, [facility] [address] [id number] [address] [place] [address], [place] [address] Jun, [facility] [address] [id number] [address] [place] [address], [place] [address] Jun, [facility] [address] [id number] [address] [place] [address], [place] [address] Jun, [facility] [address] [id number] [facility] [place] [address] Jun, [facility] [address] [id number] [facility] [place] [address] May, [facility] [address] [id number] [facility] [place] [address] May, [facility] [address] [id number] [address] [place] [address], [place] [address] May, [facility] [address] [id number] [address] [place] [address], [place] [address] May, [facility] [address] [id number] [address] [place] [address], [place] [address] May, [facility] [address] [id number] [address] [place] [address], [place] [address] May, [facility] [address] [id number] [address] [place] [address], [place] [address] May, [facility] [address] [id number] [address] [place] [address], [place] [address] May, [facility] [address] [id number] [address] [place] [address], [place] [address] May, [facility] [address] [id number] [address] [place] [address], [place] [address] May, [facility] [address] [id number] [address] [place] [address], [place] [address] May, [facility] [address] [id number] [address] [place] [address], [place] [address] May, [facility] [address] [id number] [address] [place] [address], [place] [address] May, [facility] [address] [id number] [address] [place] [address], [place] [address] Apr, [facility] [address] [id number] [address] [place] [address], [place] [address] Apr, [facility] [address] [id number] [facility] [place] [address] Apr, [facility] [address] [id number] [address] [place] [address], [place] [address] Apr, [facility] [address] [id number] [facility] [place] [address] Apr, [facility] [address] [id number] [address] [place] [address], [place] [address] Apr, [facility] [address] [id number] [address] [place] [address], [place] [address] Apr, [facility] [address] [id number] [address] [place] [address], [place] [address] Apr, [facility] [address] [id number] [address] [place] [address], [place] [address] Apr, [facility] [address] [id number] [address] [place] [address], [place] [address] March, [facility] [address] [id number] [address] [place] [address], [place] [address] March, [facility] [address] [id number] [address] [place] [address], [place] [address] March, [facility] [address] [id number] [address] [place] [address], [place] [address] March, [facility] [address] [id number] [address] [place] [address], [place] [address] March, [facility] [address] [id number] [address] [place] [address], [place] [address] March, [facility] [address] [id number] [address] [place] [address], [place] [address] March, [facility] [address] [id number] [address] [place] [address], [place] [address] March, [facility] [address] [id number] [address] [place] [address], [place] [address] March, [facility] [address] [id number] [address] [place] [address], [place] [address] March, [facility] [address] [id number] [address] [place] [address], [place] [address] March, [facility] [address] [id number] [address] [place] [address], [place] [address] March, [facility] [address] [id number] [address] [place] [address], [place] [address] March, [facility] [address] [id number] [address] [place] [address], [place] [address] March, [facility] [address] [id number] [address] [place] [address], [place] [address] March, [facility] [address] [id number] [address] [place] [address], [place] [address] March, [facility] [address] [id number] [address] [place] [address], [place] [address] March, [facility] [address] [id number] [address] [place] [address], [place] [address] March, [facility] [address] [id number] [address] [place] [address], [place] [address] March, [facility] [address] [id number] [address] [place] [address], [place] [address] March, [facility] [address] [id number] [address] [place] [address], [place] [address] Feb, [facility] [address] [id number] [address] [place] [address], [place] [address] Feb, [facility] [address] [id number] [address] [place] [address], [place] [address] Feb, [facility] [address] [id number] [address] [place] [address], [place] [address] Feb, [facility] [address] [id number] [facility] [place] [address] Feb, [facility] [address] [id number] [address] [place] [address], [place] [address] Feb, [facility] [address] [id number] [address] [place] [address], [place] [address] Feb, [facility] [address] [id number] [address] [place] [address], [place] [address] Feb, [facility] [address] [id number] [address] [place] [address], [place] [address] Jan, [facility] [address] [id number] [address] [place] [address], [place] [address] Jan, [facility] [address] [id number] [address] [place] [address], [place] [address] Jan, [facility] [address] [id number] [address] [place] [address], [place] [address] Jan, [facility] [address] [id number] [address] [place] [address], [place] [address] Jan, [facility] [address] [id number] [address] [place] [address], [place] [address] Jan, [facility] [address] [id number] [address] [place] [address], [place] [address] Jan, [facility] [address] [id number] [address] [place] [address], [place] [address] Jan, [facility] [address] [id number] [address] [place] [address], [place] [address] Jan, [facility] [address] [id number] [address] [place] [address], [place] [address] Jan, [facility] [address] [id number] [address] [place] [address], [place] [address] Dec, [facility] [address] [id number] [address] [place] [address], [place] [address] Dec, [facility] [address] [id number] [address] [place] [address], [place] [address] Dec, [facility] [address] [id number] [address] [place] [address], [place] [address] Dec, [facility] [address] [id number] [address] [place] [address], [place] [address] Dec, [facility] [address] [id number] [address] [place] [address], [place] [address] Dec, [facility] [address] [id number] [address] [place] [address], [place] [address] Dec, [facility] [address] [id number] [address] [place] [address], [place] [address] Dec, [facility] [address] [id number] [address] [place] [address], [place] [address] Nov, [facility] [address] [id number] [address] [place] [address], [place] [address] Nov, [facility] [address] [id number] [address] [place] [address], [place] [address] Nov, [facility] [address] [id number] [address] [place] [address], [place] [address] Nov, [facility] [address] [id number] [address] [place] [address], [place] [address] Nov, [facility] [address] [id number] [address] [place] [address], [place] [address] Nov, [facility] [facility] [address] [id number] [address] [place] [address], [place] [address] Nov, [facility] [address] [id number] [address] [place] [address], [place] [address] Nov, [facility] [address] [id number] [address] [place] [address], [place] [address] Nov, [facility] [address] [id number] [address] [place] [address], [place] [address] Nov, [facility] [address] [id number] [address] [place] [address], [place] [address] Nov, [facility] [address] [id number] [address] [place] [address], [place] [address] Nov, [facility] [address] [id number] [address] [place] [address], [place] [address] Nov, [facility] [address] [id number] [address] [place] [address], [place] [address] Oct, [facility] [address] [id number] [address] [place] [address], [place] [address] Oct, [facility] [address] [id number] [address] [place] [address], [place] [address] Oct, [facility] [address] [id number] [address] [place] [address], [place] [address] Oct, [facility] [address] [id number] [address] [place] [address], [place] [address] Oct, [facility] [address] [id number] [address] [place] [address], [place] [address] Oct, [facility] [address] [id number] [address] [place] [address], [place] [address] Oct, [facility] [address] [id number] [address] [place] [address], [place] [address] Oct, [facility] [address] [id number] [address] [place] [address], [place] [address] Oct, [facility] [address] [id number] [address] [place] [address], [place] [address] Oct, [facility] [address] [id number] [address] [place] [address], [place] [address] Oct, [facility] [address] [id number] [address] [place] [id number] Oct, [facility] [address] [id number] [address] [place] [address], [place] [address] Oct, [facility] [address] [id number] [address] [place] [id number] Oct, [facility] [address] [id number] [address] [place] [id number] Sep, [facility] [address] [id number] [address] [place] [id number] Sep, [facility] [address] [id number] [address] [place] [address], [place] [address] Sep, [facility] [address] [id number] [address] [place] [id number] Sep, [facility] [address] [id number] [address] [place] [id number] Sep, [facility] [address] [id number] [address] [place] [id number] Sep, [facility] [address] [id number] [address] [place] [id number] Sep, [facility] [address] [id number] [address] [place] [id number] Sep, [facility] [address] [id number] [address] [place] [id number] Sep, [facility] [address] [id number] [address] [place] [id number] Sep, [facility] [address] [id number] [address] [place] [id number] Aug, [facility] [address] [id number] [address] [place] [id number] Aug, [facility] [address] [id number] [address] [place] [id number] Aug, [facility] [address] [id number] [address] [place] [address], [place] [address] 24 Aug, 2012 [facility] [address] [id number] [address] [place] [address], [place] [address] 23 Aug, 2012 [facility] [address] [id number] [address] [place] [address], [place] [address] 23 Aug, 2012 [facility] [address] [id number] [address] [place] [address], [place] [address] 23 Aug, 2012 [facility] [address] [id number] [address] [place] [address], [place] [address] 23 Aug, 2012 [facility] [address] [id number] [address] [place] [address], [place] [address] Aug, 2012 [facility] [address] [id number] [address] [place] [address], [place] [address] 22 Aug, 2012 [facility] [address] [id number] [address] [place] [address], [place] [address] 18 Aug, 2012 [facility] [address] [id number] [address] [place] [address], [place] [address] 18 Aug, 2013 [facility] [address] [id number] [address] [place] [address], [place] [address] 18 Aug, 2012 [facility] [address] [id number] [address] [place] [address], [place] [address] 18 Aug, 2013 [facility] [address] [id number] [address] [place] [address], [place] [address] 17 Aug, 2012 [facility] [address] [id number] [address] [place] [address], [place] [address] 14 Aug, 2013 [facility] [address] [id number] [address] [place] [address], [place] [address] 14 Aug, 2013 [facility] [address] [id number] [address] [place] [address], [place] [address] Aug, [facility] [address] [id number] [address] [place] [address], [place] [address] 20 Jul, 2013 [facility] [address] [id number] [address] [place] [address], [place] [address] 19 Jul, 2013 [facility] [address] [id number] [address] [place] [address], [place] [address] 18 Jul, 2013 [facility] [address] [id number] [address] [place] [address], [place] [address] 11 Jul, 2013 [facility] [address] [id number] [address] [place] [address], [place] [address] 11 Jul, 2013 [facility] [address] [id number] [address] [place] [address], [place] [address] Jun, [facility] [address] [id number] [address] [place] [address], [place] [address] Jun, [facility] [address] [id number] [address] [place] [address], [place] [address] Jun, [facility] [address] [id number] [address] [place] [address], [place] [address] 15 Jun, 2013 [facility] [address] [id number] [address] [place] [address], [place] [address] Jun, [facility] [address] [id number] [address] [place] [address], [place] [address] Jun, [facility] [address] [id number] [address] [place] [address], [place] [address] Jun, [facility] [address] [id number] [address] [place] [address], [place] [address] Jun, [facility] [address] [id number] [address] [place] [address], [place] [address] Jun, [facility] [address] [id number] [address] [place] [address], [place] [address] Jun, [facility] [address] [id number] [address] [place] [address], [place] [address] May, [facility] [address] [id number] [address] [place] [address], [place] [address] May, [facility] [address] [id number] [address] [place] [address], [place] [address] May, [facility] [address] [id number] [address] [place] [address], [place] [address] May, [facility] [address] [id number] [address] [place] [address], [place] [address] May, [facility] [address] [id number] [address] [place] [address], [place] [address] May, [facility] [address] [id number] [address] [place] [address], [place] [address] May, [facility] [address] [id number] [address] [place] [address], [place] [address] May, [facility] [address] [id number] [address] [place] [address], [place] [address] May, [facility] [address] [id number] [address] [place] [address], [place] [address] Apr, [facility] [address] [id number] [address] [place] [address], [place] [address] Apr, [facility] [address] [id number] [address] [place] [address], [place] [address] Apr, [facility] [address] [id number] [address] [place] [address], [place] [address] Apr, [facility] [address] [id number] [address] [place] [address], [place] [address] Apr, [facility] [address] [id number] [address] [place] [address], [place] [address] Apr, [facility] [address] [id number] [address] [place] [address], [place] [address] Apr, [facility] [address] [id number] [address] [place] [address], [place] [address] March, [facility] [address] [id number] [facility] [place] [address] Feb, [facility] [address] [id number] [address] [place] [address], [place] [address] Feb, [facility] [address] [id number] [address] [place] [address], [place] [address] Feb, [facility] [address] [id number] [address] [place] [address], [place] [address] 28 Jan, 2013 [facility] [address] [id number] [address] [place] [address], [place] [address] Jan, [facility] [address] [id number] [address] [place] [address], [place] [address] 19 Jan, 2013 [facility] [address] [id number] [address] [place] [address], [place] [address] 14 Jan, 2013 [facility] [address] [id number] [address] [place] [address], [place] [address] 12 Jan, 2013 [facility] [address] [id number] [address] [place] [address], [place] [address] 08 Jan, 2013 [facility] [address] [id number] [address] [place] [address], [place] [address] 07 Jan, 2013 [facility] [address] [id number] [address] [place] [address], [place] [address] 04 Jan, 2013 [facility] [address] [id number] [address] [place] [address], [place] [address] 28 Dec, 2012 [facility] [address] [id number] [address] [place] [address], [place] [address] Dec, [facility] [address] [id number] [address] [place] [address], [place] [address] 13 Dec, 2012 [facility] [address] [id number] [address] [place] [address], [place] [address] Dec, [facility] [address] [id number] [address] [place] [address], [place] [address] 07 Dec, 2012 [facility] [address] [id number] [address] [place] [address], [place] [address] 06 Dec, 2012 [facility] [address] [id number] [address] [place] [address], [place] [address] 05 Dec, 2012 [facility] [address] [id number] [address] [place] [address], [place] [address] Nov, [facility] [address] [id number] [address] [place] [address], [place] [address] 24 Nov, 2012 [facility] [address] [id number] [address] [place] [address], [place] [address] 18 Nov, 2012 [facility] [address] [id number] [address] [place] [address], [place] [address] 15 Nov, 2012 [facility] [address] [id number] [address] [place] [address], [place] [address] Nov, [facility] [address] [id number] [address] [place] [address], [place] [address] Nov, [facility] [address] [id number] [address] [place] [address], [place] [address] Nov, [facility] [address] [id number] [address] [place] [address], [place] [address] Oct, [facility] [address] [id number] [address] [place] [address], [place] [address] 31 Oct, 2012 [facility] [address] [id number] [address] [place] [address], [place] [address] Oct, [facility] [address] [id number] [address] [place] [address], [place] [address] Oct, [facility] [address] [id number] [address] [place] [address], [place] [address] Oct, [facility] [address] [id number] [address] [place] [address], [place] [address] 17 Oct, 2012 [facility] [address] [id number] [address] [place] [address], [place] [address] 07 Oct, 2012 [facility] [address] [id number] [address] [place] [address], [place] [address] Oct, [facility] [address] [id number] [address] [place] [address], [place] [address] Oct, [facility] [address] [id number] [address] [place] [address], [place] [address] Oct, [facility] [address] [id number] [address] [place] [address], [place] [address] Oct, [facility] [address] [id number] [address] [place] [address], [place] [address] Oct, [facility] [address] [id number] [address] [place] [address], [place] [address] Sep, [facility] [address] [id number] [address] [place] [address], [place] [address] Sep, [facility] [address] [id number] [address] [place] [address], [place] [address] Sep, [facility] [address] [id number] [address] [place] [address], [place] [address] Sep, [facility] [address] [id number] [address] [place] [address], [place] [address] Sep, [facility] [address] [id number] [address] [place] [address], [place] [address] Sep, [facility] [address] [id number] [address] [place] [address], [place] [address] Sep, [facility] [address] [id number] [address] [place] [address], [place] [address] Sep, [facility] [address] [id number] [address] [place] [address], [place] [address] Sep, [facility] [address] [id number] [address] [place] [address], [place] [address] Sep, [facility] [address] [id number] [address] [place] [address], [place] [address] Sep, [facility] [address] [id number] [address] [place] [address], [place] [address] Aug, [facility] [address] [id number] [address] [place] [address], [place] [address] Aug, [facility] [address] [id number] [address] [place] [address], [place] [address] Aug, [facility] [address] [id number] [address] [place] [address], [place] [address] Aug, [facility] [address] [id number] [address] [place] [address], [place] [address] Aug, [facility] [address] [id number] [address] [place] [address], [place] [address] Aug, [facility] [address] [id number] [address] [place] [id number] Aug, [facility] [address] [id number] [address] [place] [address], [place] [address] Aug, [facility] [address] [id number] [address] [place] [id number] Aug, [facility] [address] [id number] [address] [place] [address] Aug, [facility] [address] [id number] [address] [place] [id number] 22 Jul, 2012 [facility] [address] [id number] [address] [place] [address], [place] [address] 20 Jul, 2011 [facility] [address] [id number] [address] [place] [id number] 10 Jul, 2011 [facility] [address] [id number] [address] [place] [id number] 06 Jul, 2012 [facility] [address] [id number] [address] [place] [address], [place] [address] Jun, [facility] [address] [id number] [address] [place] [address], [place] [address] Jun, [facility] [address] [id number] [address] [place] [address], [place] [address] Jun, [facility] [address] [id number] [address] [place] [address], [place] [address] Jun, [facility] [address] [id number] [address] [place] [address], [place] [address] Jun, [facility] [address] [id number] [address] [place] [address], [place] [address] Jun, [facility] [address] [id number] [address] [place] [address], [place] [address] Jun, [facility] [address] [id number] [address] [place] [address], [place] [address] May, [facility] [address] [id number] [address] [place] [address], [place] [address] May, [facility] [address] [id number] [address] [place] [address], [place] [address] May, [facility] [address] [id number] [address] [place] [address], [place] [address] May, [facility] [address] [id number] [address] [place] [address], [place] [address] May, [facility] [address] [id number] [address] [place] [address], [place] [address] Apr, [facility] [address] [id number] [address] [place] [address], [place] [address] Apr, [facility] [address] [id number] [address] [place] [address], [place] [address] Apr, [facility] [address] [id number] [address] [place] [address], [place] [address] Apr, [facility] [address] [id number] [address] [place] [address], [place] [address] Apr, [facility] [address] [id number] [address] [place] [address], [place] [address] March, [facility] [address] [id number] [address] [place] [address], [place] [address] March, [facility] [address] [id number] [address] [place] [address], [place] [address] March, [facility] [address] [id number] [address] [place] [address], [place] [id number] March, [facility] [address] [id number] [address] [place] [address], [place] [id number] March, [facility] [address] [id number] [address] [place] [address], [place] [id number] March, [facility] [address] [id number] [address] [place] [address], [place] [id number] March, [facility] [address] [id number] [address] [place] [address], [place] [id number] March, [facility] [address] [id number] [address] [place] [address], [place] [id number] March, [facility] [address] [id number] [address] [place] [address], [place] [id number] March, [facility] [address] [id number] [address] [place] [address], [place] [id number] Feb, [facility] [address] [id number] [address] [place] [address], [place] [id number] Feb, [facility] [address] [id number] [address] [place] [address], [place] [id number] Feb, [facility] [address] [id number] [address] [place] [address], [place] [id number] Feb, [facility] [address] [id number] [address] [place] [address], [place] [id number] Feb, [facility] [address] [id number] [address] [place] [address], [place] [id number] Feb, [facility] [address] [id number] [address] [place] [address], [place] [id number] Feb, [facility] [address] [id number] [address] [place] [address], [place] [id number] Feb, [facility] [address] [id number] [address] [place] [address], [place] [id number] Feb, [facility] [address] [id number] [address] [place] [address], [place] [id number] Jan, [facility] [address] [id number] [address] [place] [address], [place] [id number] Jan, [facility] [address] [id number] [address] [place] [address], [place] [id number] Jan, [facility] [address] [id number] [address] [place] [address], [place] [id number] Jan, [facility] [address] [id number] [address] [place] [address], [place] [id number] Dec, [facility] [address] [id number] [address] [place] [address], [place] [id number] Dec, [facility] [address] [id number] [address] [place] [address], [place] [id number] Nov, [facility] [address] [id number] [address] [place] [address], [place] [id number] Nov, [facility] [address] [id number] [address] [place] [address], [place] [id number] Nov, [facility] [address] [id number] [address] [place] [address], [place] [id number] 16 Nov, 2011 [facility] [address] [id number] [address] [place] [address], [place] [id number] Nov, [facility] [address] [id number] [address] [place] [id number] Oct, [facility] [address] [id number] [address] [place] [id number] Oct, [facility] [address] [id number] [address] [place] [id number] Oct, [facility] [address] [id number] [address] [place] [id number] Oct, [facility] [address] [id number] [address] [place] [id number] Oct, [facility] [address] [id number] [address] [place] [phone] Oct, [facility] [address] [id number] [address] [place] [phone] Oct, [facility] [address] [id number] [address] [place] [phone] Oct, [facility] [address] [id number] [address] [place] [id number] Sep, IMMUNIZATIONS No Known Immunizations SOCIAL HISTORY Never Assessed REASON FOR VISIT PLAN OF CARE VITAL SIGNS Height 62 in 2013-05-06 Weight 170.5 lbs 2013-05-06 Temperature 98.5 degrees Fahrenheit 2013-05-06 Heart Rate 100 bpm 2013-05-06 Respiratory Rate 18 2013-05-06 Blood pressure systolic 150 mmHg 2013-05-06 Blood pressure diastolic 72 mmHg 2013-05-06 MEDICATIONS Unknown Medications RESULTS No Results PROCEDURES Procedure Date Ordered Result Body Site ASSAY OF MAGNESIUM May 06, 2013 GLYCATED HEMOGLOBIN TEST May 06, 2013 ASSAY OF CK (CPK) May 06, 2013 COMPREHEN METABOLIC PANEL May 06, 2013 VENIPUNCT, ROUTINE* May 06, 2013 INSTRUCTIONS MEDICATIONS ADMINISTERED No Known Medications MEDICAL [...] and fever, discharged 11/27/2017 11/26/2017 Hospitalization History [facility]- Went Unrepsonsive, Hit head 2017 Hospitalization History [facility] [place]- Back Pain 8
--- OUTSIDE RECORDS SUMMARY | 2020-06-18 14:38 | XMS REPORT ---
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 Name Role Phone Migration, Doctor Unavailable Unavailable PROBLEMS Type Condition ICD9-CM Code FWZ91-UE Code Onset Dates Condition S tatus SNOMED Code Problem Hypertension I10 Active 1451415 3 Problem Hyperlipidemia E78.5 Active 45903 004 Problem Coronary artery disease I25.10 Active 29522469 Problem Low back pain M54.5 Active 964895 009 Problem Other chronic pain G89.29 Active 8 6079390 Problem Ventral hernia without obstruction or gangrene K43 .9 Active 263154728 Problem Type 2 diabetes mellitus wit hout complication, without long-term current use of insulin E11.9 Active 642698883 Problem Anxiety F41.9 Active 34368514 Problem Peripheral vascular disease I73.9 Ac tive 397607455 Problem Insomnia G47.00 Active 742503838 Problem Microcytic anemia D50.9 Active 23 3834031 Problem Pharyngeal dysphagia R13.13 Active 19505337124094 Problem Other iron deficiency anemia D50.8 A ctive 35299287 Problem Reactive depression F32.9 Active 97352221 Problem Paroxysmal atrial fibrillation I48.0 Active 354560667 Problem 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 Active 06937694 Problem Encounter for suprapubic catheter care Z43.5 Active 651430859 Problem Neurogenic bladder N31.9 Active 3 14474637 ALLERGIES No Information ENCOUNTERS Encounter Location Date Diagnosis [facility] [address] [facility] [id number] [address] [place] [phone] Feb, Anxiety F41.9 and Strain of right shoulder, subsequent encounter S46.911D [place] [address] [facility] [id number] [address] [place] [id number] 24 Jan, 2020 Anxiety F41.9 and Strain of right shoulder, subsequent encounter S46.911D [facility] [address] [facility] [id number] [address] [place] [phone] Jan, Via [facility] [address] [place] [id number] Jan, Neurogenic bladder N31.9 [place] [address] [id number] [address] [place] [phone] Dec, [place] [address] [id number] [address] [place] [phone] Dec, [place] [address] [id number] [address] [place] [phone] Dec, Anxiety F41.9 and Strain of right shoulder, subsequent encounter S46.911D [place] [address] [id number] [address] [place] [id number] 10 Dec, 2019 Other iron deficiency anemia D50.8 [place] [address] [id number] [address] [place] [phone] 04 Dec, 2019 Via [facility] [address] [place] [id number] 04 Dec, 2019 Encounter for suprapubic catheter care Z 43.5 and Microcytic anemia D50.9 [place] [address] [id number] [address] [place] [id number] 03 Dec, 2019 [place] [address] [id number] [address] [place] [phone] Nov, Anxiety F41.9 and Strain of right shoulder, subsequent encounter S46.911D [place] [address] [id number] [address] [place] [phone] Nov, Hypertension I10 [facility] [address] [place] [id number] Nov, Pneumonia of both lungs due to infectiou s organism, unspecified part of lung J18.9 and Suprapubic catheter Z93.59 [place] [address] [id number] [address] [place] [phone] Nov, Hypertension I10 and Reactiv e depression F32.9 [facility] [address] [id number] [address] [place] [id number] Oct, Strain of right shoulder, scherer bsequent encounter S46.911D and Anxiety F41.9 [facility] [address] [id number] [address] [place] [phone] Oct, Via [facility] [address] [place] [id number] Oct, Suprapubic catheter Z93.59 and Candidias is, intertriginous B37.2 [facility] [address] [id number] [address] [place] [phone] Oct, Suprapubic catheter Z93.59 [facility] [address] [id number] [address] [place] [phone] Oct, Anxiety F41.9 and Strain of right shoulder, subsequent encounter S46.911D [facility] [address] [id number] [address] [place] [phone] Sep, [facility] [address] [id number] [address] [place] [phone] Sep, [facility] [address] [id number] [address] [place] [phone] Sep, [facility] [address] [place] [id number] Sep, Suprapubic catheter Z93.59 [facility] [address] [id number] [address] [place] [phone] Sep, Anxiety F41.9 and Strain of right shoulder, subsequent encounter S46.911D [facility] [address] [id number] [address] [place] [phone] Aug, [facility] [address] [id number] [address] [place] [phone] Aug, [facility] [address] [id number] [address] [place] [phone] Aug, Anxiety F41.9 and Strain of right shoulder, subsequent encounter S46.911D [facility] [address] [place] [id number] Aug, Suprapubic catheter Z93.59 [facility] [address] [id number] [address] [place] [id number] Jul, Strain of right shoulder, scherer bsequent encounter S46.911D and Anxiety F41.9 [facility] [address] [id number] [address] [place] [phone] Jul, Anxiety F41.9 [facility] [address] [id number] [address] [place] [phone] Jun, [facility] [address] [id number] [address] [place] [phone] Jun, [facility] [address] [id number] [address] [place] [phone] Jun, [facility] [address] [id number] [address] [place] [phone] Jun, Strain of right shoulder, scherer bsequent encounter S46.911D [facility] [address] [id number] [address] [place] [id number] Jun, Strain of right shoulder, scherer bsequent encounter S46.911D [facility] [address] [id number] [address] [place] [phone] Jun, Anxiety F41.9 [facility] [address] [place] [id number] Jun, Neurogenic bladder N31.9 and Anxiety F41 .9 [facility] [address] [place] [id number] May, Anxiety F41.9 [facility] [address] [id number] [address] [place] [phone] May, Dysuria R30.0 [facility] [address] [id number] [address] [place] [phone] May, Strain of right shoulder, scherer bsequent encounter S46.911D and Anxiety F41.9 [place] [address] [id number] [address] [place] [phone] Apr, Via [facility] [address] [place] [id number] Apr, Strain of right shoulder, subsequent enc ounter S46.911D [place] [address] [facility] [id number] [address] [place] [id number] 14 Apr, 2019 Strain of right shoulder, scherer bsequent encounter S46.911D and Anxiety F41.9 [facility] [address] [place] [id number] Apr, Type 2 diabetes mellitus without complic ation, without long-term current use of insulin E11.9 and Neurogenic bladder N31.9 [facility] [address] [place] [id number] Apr, Strain of right shoulder, subsequent enc ounter S46.911D ; History of GI bleed Z87.19 ; Neurogenic bladder N31.9 and Reactive depression F32.9 [place] [address] [facility] [id number] [address] [place] [id number] Apr, Acute pain of left shoulder M25.512 [place] [address] [id number] [address] [place] [id number] Apr, [place] [address] [id number] [address] [place] [phone] Apr, Anxiety F41.9 and 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 [facility] [address] [place] [id number] March, Gastrointestinal hemorrhage associated w ith acute gastritis K29.01 [place] [address] [id number] [address] [place] [phone] March, [facility] [address] [place] [id number] March, Bronchitis J40 [facility] [address] [id number] [address] [place] [phone] March, Cough R05 [facility] [address] [id number] [address] [place] [phone] March, Other chronic pain G89.29 [facility] [address] [id number] [address] [place] [id number] March, Anxiety F41.9 [facility] [address] [id number] [address] [place] [phone] March, [facility] [address] [id number] [address] [place] [phone] Feb, Other chronic pain G89.29 [facility] [address] [id number] [address] [place] [phone] Feb, Anxiety F41.9 [facility] [address] [id number] [address] [place] [phone] Feb, Other chronic pain G89.29 [facility] [address] [place] [id number] Feb, Neurogenic bladder N31.9 and Suprapubic catheter Z93.59 [facility] [address] [id number] [address] [place] [phone] Jan, Anxiety F41.9 [facility] [address] [id number] [address] [place] [phone] Dec, Anxiety F41.9 [facility] [address] [id number] [address] [place] [phone] Dec, Other chronic pain G89.29 an d Anxiety F41.9 [facility] [address] [id number] [address] [place] [phone] Dec, Via [facility] [facility] [address] [place] [id number] Dec, Neurogenic bladder N31.9 and Suprapubic catheter Z93.59 [facility] [address] [id number] [address] [place] [phone] Nov, Other chronic pain G89.29 an d Anxiety F41.9 [facility] [address] [id number] [address] [place] [phone] Nov, [facility] [address] [place] [id number] Nov, Suprapubic catheter Z93.59 [facility] [address] [id number] [address] [place] [phone] Oct, Other chronic pain G89.29 an d Anxiety F41.9 [facility] [address] [id number] [address] [place] [phone] Oct, [facility] [address] [id number] [address] [place] [phone] Oct, Suprapubic catheter Z93.59 [facility] [address] [id number] [address] [place] [phone] Oct, [facility] [address] [place] [id number] Oct, [facility] [address] [id number] [address] [place] [phone] Oct, Anxiety F41.9 [facility] [address] [id number] [address] [place] [phone] Oct, Anxiety F41.9 Via [facility] [address] [place] [id number] Oct, Other chronic pain G89.29 [facility] [address] [id number] [address] [place] [phone] Sep, Other chronic pain G89.29 [facility] [address] [place] [id number] Sep, Suprapubic catheter Z93.59 and Cervicalg ia M54.2 [facility] [address] [id number] [address] [place] [phone] Sep, [facility] [address] [id number] [address] [place] [phone] Sep, [facility] [address] [id number] [address] [place] [phone] Sep, Via [employer] [facility] [address] [place] [id number] Aug, Cystitis N30.90 [facility] [address] [id number] [address] [place] [id number] Aug, [facility] [address] [id number] [address] [place] [phone] Aug, Other chronic pain G89.29 [facility] [address] [id number] [address] [place] [phone] Aug, Via [facility] [address] [place] [id number] Aug, Encounter for suprapubic catheter care Z 43.5 [facility] [address] [id number] [address] [place] [phone] Jul, Via [facility] [address] [place] [id number] Jul, [facility] [address] [id number] [address] [place] [id number] Jul, Other chronic pain G89.29 [facility] [address] [id number] [address] [place] [phone] Jul, [facility] [address] [id number] [address] [place] [phone] Jul, Via [facility] [address] [place] [id number] Jun, 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 [facility] [address] [id number] [address] [place] [phone] Jun, Other chronic pain G89.29 [facility] [address] [id number] [address] [place] [phone] Jun, Via [facility] [address] [place] [id number] May, Anxiety F41.9 ; Type 2 diabetes mellitus without complication, without long-term current use of insulin E11.9 ; Hypertension I10 ; Low back pain M54.5 ; Paroxysmal atrial fibrillation I48.0 and 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 [facility] [address] [id number] [address] [place] [phone] May, Other chronic pain G89.29 Via [facility] [facility] [address] [place] [id number] May, Low back pain M54.5 [facility] [address] [id number] [address] [place] [phone] May, [facility] [address] [id number] [address] [place] [phone] Apr, Other chronic pain G89.29 [facility] [address] [id number] [address] [place] [id number] Apr, [facility] [address] [id number] [address] [place] [phone] Apr, Via [facility] [address] [place] [id number] Apr, Closed compression fracture of L3 lumbar vertebra with routine healing, subsequent encounter S32.030D [facility] [address] [place] [id number] 14 Apr, 2018 Low back pain M54.5 [facility] [address] [place] [id number] Apr, Coccydynia M53.3 [facility] [address] [id number] [address] [place] [phone] March, [facility] [address] [id number] [address] [place] [phone] March, Other chronic pain G89.29 [place] [address] [id number] [address] [place] [phone] March, [facility] [address] [id number] [address] [place] [phone] March, [facility] [address] [id number] [address] [place] [id number] Feb, [facility] [address] [facility] [id number] [address] [place] [phone] Feb, Other chronic pain G89.29 [facility] [address] [place] [id number] Feb, Other chronic pain G89.29 and Anxiety F4 1.9 [facility] [address] [facility] [id number] [address] [place] [phone] Feb, [facility] [address] [facility] [id number] [address] [place] [phone] Jan, [facility] [address] [facility] [id number] [address] [place] [phone] Jan, [facility] [address] [facility] [id number] [address] [place] [phone] Jan, [facility] [address] [facility] [id number] [address] [place] [phone] Jan, [facility] [address] [facility] [id number] [address] [place] [phone] Dec, [facility] [address] [place] [id number] Dec, Peripheral vascular disease I73.9 ; 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 ; Other chronic pain G89.29 ; Anxiety F41.9 ; Reactive depression F32.9 ; Insomnia G47.00 and Type 2 diabetes mellitus without complication, without long-term current use of insulin E11.9 [facility] [address] [id number] [address] Nov, [facility] [address] [id number] [place] [id number] Nov, Anxiety F41.9 [facility] [address] [id number] [address] [place] [phone] Nov, [facility] [address] [id number] [place] [id number] Nov, Anxiety F41.9 [facility] [address] [place] [id number] Nov, Status post surgery Z98.890 ; Confused R 41.0 ; Anxiety F41.9 and Other chronic pain G89.29 [facility] [address] [id number] [place] [id number] Nov, Other chronic pain G89.29 [facility] [address] [facility] [id number] [address] [place] [phone] Oct, [facility] [address] [id number] [place] [id number] Oct, Other chronic pain G89.29 [facility] [address] [id number] [address] [place] [phone] Oct, Anxiety F41.9 [facility] [address] [id number] [place] [id number] Sep, Other chronic pain G89.29 [facility] [address] [id number] [place] [id number] Sep, [facility] [address] [place] [id number] Aug, Dysuria R30.0 and Anxiety F41.9 [facility] [address] [id number] [address] [place] [phone] Aug, [facility] [address] [id number] [place] [id number] Aug, Other chronic pain G89.29 [facility] [address] [id number] [address] [place] [phone] Jul, Other chronic pain G89.29 [facility] [address] [id number] [place] [id number] Jun, [facility] [address] [id number] [place] [facility] [place] [place] [id number] Jun, Other chronic pain G89.29 [facility] [address] [facility] [id number] [address] [place] [phone] Jun, [facility] [address] [id number] [address] [place] [phone] May, Other chronic pain G89.29 [facility] [address] [facility] [id number] [address] [place] [phone] Apr, Other chronic pain G89.29 [facility] [facility] [address] [place] [id number] Apr, Reactive depression F32.9 and Pharyngeal dysphagia R13.13 [place] [address] [facility] [id number] [address] [place] [phone] Apr, Urinary tract infection with out hematuria, site unspecified N39.0 [place] [address] [facility] [id number] [address] [place] [phone] March, Other chronic pain G89.29 [place] [address] [facility] [id number] [address] [place] [phone] Feb, Other chronic pain G89.29 [facility] [address] [id number] [address] [place] [phone] Feb, [facility] [address] [id number] [place] [id number] Feb, [facility] [address] [place] [id number] Feb, Dysuria R30.0 and Ventral hernia without obstruction or gangrene K43.9 [place] [address] [facility] [id number] [address] [place] [phone] Jan, Other chronic pain G89.29 [facility] [id number] [place] [id number] Dec, Other chronic pain G89.29 [facility] [address] [id number] [address] [place] [phone] Nov, Other chronic pain G89.29 [facility] [address] [place] [id number] Nov, Lymphadenitis I88.9 [facility] [address] [id number] [address] [place] [phone] Nov, Other chronic pain G89.29 [facility] [address] [id number] [address] [place] [phone] Nov, [facility] [id number] [place] [id number] Nov, Other chronic pain G89.29 [facility] [address] [place] [id number] Oct, Low back pain M54.5 ; Hypertension I10 a nd Type 2 diabetes mellitus without complication, without long-term current use of insulin E11.9 [facility] [address] [id number] [address] [place] [phone] Oct, [facility] [address] [id number] [address] [place] [phone] Oct, [facility] [address] [id number] [address] [place] [id number] Oct, [facility] [address] [id number] [address] [place] [phone] Oct, [facility] [address] [id number] [address] [place] [id number] Sep, [facility] [address] [id number] [address] [place] [phone] Sep, [facility] [address] [id number] [address] [place] [id number] Aug, Other chronic pain G89.29 [facility] [address] [id number] [address] [place] [phone] Jul, [facility] [address] [id number] [address] [place] [phone] Jul, [facility] [address] [id number] [address] [place] [id number] Jul, [facility] [address] [id number] [address] [place] [id number] Jun, [facility] [address] [id number] [address] [place] [id number] Jun, [facility] [address] [place] [id number] Jun, Low back pain M54.5 ; Other chronic pain G89.29 and Coronary artery disease I25.10 [facility] [address] [id number] [address] [place] [id number] Jun, [facility] [address] [id number] [address] [place] [id number] May, [facility] [address] [id number] [address] [place] [id number] May, [facility] [address] [id number] [address] [place] [phone] May, Other chronic pain G89.29 [facility] [address] [id number] [address] [place] [phone] May, [facility] [address] [id number] [address] [place] [id number] Apr, [facility] [address] [facility] [id number] [place] [address] 17 Apr, 2016 Acute cystitis without hemat uria N30.00 [facility] [address] [id number] [address] [place] [address] Apr, Acute cystitis without hemat uria N30.00 ; Coronary artery disease I25.10 ; Low back pain M54.5 and Other chronic pain G89.29 [facility] [address] [id number] [address] [place] [address] Apr, Other chronic pain G89.29 [facility] [address] [id number] [address] [place] [address] March, Other chronic pain G89.29 [facility] [address] [id number] [address] [place] [address] 18 Feb, 2016 [facility] [address] [id number] [address] [place] [address] Feb, Arthritis M19.90 [facility] [address] [id number] [address] [place] [address] Feb, [facility] [address] [id number] [address] [place] [address] Jan, [facility] [address] [id number] [address] [place] [address] Jan, [facility] [address] [id number] [address] [place] [address] Jan, Other chronic pain G89.29 [facility] [address] [id number] [address] [place] [address] Jan, Hypertension I10 ; Coronary artery disease I25.10 and Insomnia G47.00 [facility] [address] [id number] [address] [place] [address] Jan, [facility] [address] [id number] [address] [place] [address] Dec, Right hip pain M25.551 [facility] [address] [id number] [address] [place] [phone] Dec, [facility] [address] [facility] [id number] [address] [place] [address] Dec, [facility] [address] [id number] [address] [place] [address] Dec, [facility] [address] [id number] [address] [place] [address] Dec, Other chronic pain G89.29 [facility] [address] [id number] [address] [place] [address] Dec, [facility] [address] [id number] [address] [place] [address] Nov, [facility] [address] [id number] [address] [place] [address] Nov, Other chronic pain G89.29 [facility] [address] [id number] [address] [place] [address] Nov, Right hip pain M25.551 and C oronary artery disease I25.10 [facility] [address] [id number] [address] [place] [address] Nov, Other chronic pain G89.29 [facility] [address] [id number] [address] [place] [address] Oct, [facility] [address] [id number] [address] [place] [phone] Oct, [facility] [address] [id number] [address] [place] [phone] Sep, [facility] [address] [id number] [address] [place] [address] Sep, [facility] [address] [facility] [id number] [address] [place] [id number] Aug, [facility] [address] [facility] [id number] [address] [place] [address] Aug, Hypertension I10 ; Coronary artery disease I25.10 and Arthritis M19.90 [facility] [address] [id number] [address] [place] [address], [place] [address] Jun, [facility] [address] [id number] [address] [place] [address], [place] [address] Jun, Essential hypertension, jayson gn 401.1 ; Other chronic pain 338.29 and Chronic airway obstruction, not elsewhere classified 496 [facility] [address] [id number] [address] [place] [address], [place] [address] Jun, [facility] [address] [id number] [address] [place] [phone] Jun, [facility] [address] [id number] [address] [place] [address], [place] [address] Jun, [facility] [address] [id number] [address] [place] [address], [place] [address] May, [facility] [address] [id number] [address] [place] [address] May, [facility] [address] [id number] [address] [place] [phone] Apr, [facility] [address] [id number] [address] [place] [phone] Apr, [facility] [address] [id number] [address] [place] [address], [place] [address] Apr, [facility] [address] [id number] [address] [place] [phone] March, [facility] [address] [id number] [address] [place] [phone] March, [facility] [address] [id number] [address] [place] [address], [place] [address] March, [facility] [address] [id number] [address] [place] [phone] March, [facility] [address] [id number] [address] [place] [address], [place] [address] March, Sialadenitis 527.2 [facility] [address] [id number] [address] [place] [address], [place] [address] Feb, [facility] [address] [id number] [address] [place] [address], [place] [address] Feb, [facility] [address] [id number] [address] [place] [address], [place] [address] Feb, [facility] [address] [id number] [address] [place] [address], [place] [address] 14 Feb, 2015 [facility] [address] [id number] [address] [place] [address], [place] [address] Feb, [facility] [address] [id number] [address] [place] [address], [place] [address] Jan, [facility] [address] [id number] [address] [place] [address], [place] [address] Jan, [facility] [address] [id number] [address] [place] [address], [place] [address] Jan, [facility] [address] [id number] [address] [place] [address], [place] [address] Jan, [facility] [address] [id number] [address] [place] [address], [place] [address] Jan, [facility] [address] [id number] [address] [place] [address], [place] [address] Jan, [facility] [address] [id number] [address] [place] [address], [place] [address] Dec, 2014 [facility] [address] [id number] [address] [place] [address], [place] [address] Dec, [facility] [address] [id number] [address] [place] [address], [place] [address] Dec, [facility] [address] [id number] [address] [place] [address], [place] [address] Dec, 2014 [facility] [address] [id number] [address] [place] [id number] Dec, [facility] [address] [id number] [address] [place] [address], [place] [address] Dec, [facility] [address] [id number] [address] [place] [phone] Nov, [facility] [address] [id number] [address] [place] [address], [place] [address] Nov, [facility] [address] [id number] [address] [place] [address], [place] [address] Nov, [facility] [address] [id number] [address] [place] [address], [place] [address] Nov, [facility] [address] [id number] [address] [place] [address], [place] [address] Nov, [facility] [address] [id number] [address] [place] [phone] Nov, [facility] [address] [id number] [address] [place] [address], [place] [address] Nov, [facility] [address] [id number] [address] [place] [address], [place] [address] Nov, [facility] [address] [id number] [address] [place] [phone] Nov, [facility] [address] [id number] [address] [place] [address], [place] [address] Nov, [facility] [address] [id number] [address] [place] [id number] Nov, [facility] [address] [id number] [address] [place] [phone] Nov, [facility] [address] [id number] [address] [place] [address] Nov, [facility] [address] [id number] [address] [place] [address], [place] [address] Nov, [facility] [address] [id number] [address] [place] [address], [place] [address] Oct, [facility] [address] [id number] [address] [place] [address], [place] [address] Oct, [facility] [address] [id number] [address] [place] [address], [place] [address] Oct, [facility] [address] [id number] [address] [place] [address], [place] [address] 18 Oct, 2014 [facility] [address] [id number] [address] [place] [address], [place] [address] 18 Oct, 2014 [facility] [address] [id number] [address] [place] [address], [place] [address] Oct, [facility] [address] [id number] [address] [place] [address], [place] [address] Oct, [facility] [address] [id number] [address] [place] [address], [place] [address] Oct, [facility] [address] [id number] [address] [place] [address], [place] [address] Oct, [facility] [address] [id number] [address] [place] [address], [place] [address] Sep, [facility] [address] [id number] [address] [place] [address], [place] [address] Sep, [facility] [address] [id number] [address] [place] [address], [place] [address] Sep, [facility] [address] [id number] [address] [place] [address], [place] [address] Sep, [facility] [address] [id number] [address] [place] [address], [place] [address] Sep, [facility] [address] [id number] [address] [place] [address], [place] [address] Sep, [facility] [address] [id number] [address] [place] [address], [place] [address] Sep, [facility] [address] [id number] [address] [place] [address], [place] [address] Sep, [facility] [address] [id number] [address] [place] [address], [place] [address] Sep, [facility] [address] [id number] [address] [place] [address], [place] [address] Sep, [facility] [address] [id number] [address] [place] [address], [place] [address] Sep, [facility] [address] [id number] [address] [place] [address], [place] [address] Sep, [facility] [address] [id number] [address] [place] [address], [place] [address] Aug, [facility] [address] [id number] [address] [place] [address], [place] [address] Aug, [facility] [address] [id number] [address] [place] [address], [place] [address] Aug, [facility] [address] [id number] [address] [place] [address], [place] [address] Aug, [facility] [address] [id number] [address] [place] [address], [place] [address] Aug, [facility] [address] [id number] [address] [place] [address], [place] [address] Aug, [facility] [address] [id number] [address] [place] [address] Aug, [facility] [address] [id number] [address] [place] [address], [place] [address] Aug, [facility] [address] [id number] [address] [place] [address], [place] [address] 30 Jul, 2014 [facility] [address] [id number] [address] [place] [address], [place] [address] 30 Jul, 2014 [facility] [address] [id number] [facility] [place] [address] 30 Jul, 2013 [facility] [address] [id number] [address] [place] [address], [place] [address] 30 Jul, 2013 [facility] [address] [id number] [facility] [place] [address] 25 Jul, 2013 [facility] [address] [id number] [address] [place] [address], [place] [address] 25 Jul, 2013 [facility] [address] [id number] [address] [place] [address], [place] [address] 15 Jul, 2013 [facility] [address] [id number] [address] [place] [address], [place] [address] 15 Jul, 2013 [facility] [address] [id number] [address] [place] [address], [place] [address] 11 Jul, 2014 [facility] [address] [id number] [address] [place] [address], [place] [address] Jul, 2013 [facility] [address] [id number] [address] [place] [address], [place] [address] Jun, [facility] [address] [id number] [address] [place] [address], [place] [address] Jun, [facility] [address] [id number] [address] [place] [address], [place] [address] Jun, [facility] [address] [id number] [address] [place] [address], [place] [address] Jun, [facility] [address] [id number] [address] [place] [address], [place] [address] Jun, [facility] [address] [id number] [address] [place] [address], [place] [address] Jun, [facility] [address] [id number] [address] [place] [address], [place] [address] Jun, [facility] [address] [id number] [address] [place] [address], [place] [address] Jun, [facility] [address] [id number] [facility] [place] [address] Jun, [facility] [address] [id number] [facility] [place] [address] Jun, [facility] [address] [id number] [facility] [place] [address] Jun, [facility] [address] [id number] [address] [place] [address], [place] [address] Jun, [facility] [address] [id number] [address] [place] [address], [place] [address] Jun, [facility] [address] [id number] [address] [place] [address], [place] [address] Jun, [facility] [address] [id number] [address] [place] [address], [place] [address] Jun, [facility] [address] [id number] [address] [place] [address], [place] [address] Jun, [facility] [address] [id number] [address] [place] [address], [place] [address] Jun, [facility] [address] [id number] [address] [place] [address], [place] [address] Jun, [facility] [address] [id number] [address] [place] [address], [place] [address] Jun, [facility] [address] [id number] [address] [place] [address], [place] [address] Jun, [facility] [address] [id number] [address] [place] [address], [place] [address] Jun, [facility] [address] [id number] [address] [place] [address], [place] [address] Jun, [facility] [address] [id number] [address] [place] [address], [place] [address] May, [facility] [address] [id number] [address] [place] [address], [place] [address] May, [facility] [address] [id number] [facility] [place] [address] May, [facility] [address] [id number] [address] [place] [address], [place] [address] May, [facility] [address] [id number] [facility] [place] [address] May, [facility] [address] [id number] [address] [place] [address], [place] [address] May, [facility] [address] [id number] [address] [place] [address], [place] [address] May, [facility] [address] [id number] [address] [place] [address], [place] [address] May, [facility] [address] [id number] [address] [place] [address], [place] [address] May, [facility] [address] [id number] [address] [place] [address], [place] [address] May, [facility] [address] [id number] [address] [place] [address], [place] [address] May, [facility] [address] [id number] [address] [place] [address], [place] [address] May, [facility] [address] [id number] [address] [place] [address], [place] [address] May, [facility] [address] [id number] [address] [place] [address], [place] [address] Apr, [facility] [address] [id number] [address] [place] [address], [place] [address] Apr, [facility] [address] [id number] [address] [place] [address], [place] [address] Apr, [facility] [address] [id number] [address] [place] [address], [place] [address] Apr, [facility] [address] [id number] [facility] [place] [address] Apr, [facility] [address] [id number] [facility] [place] [address] Apr, [facility] [address] [id number] [facility] [place] [address] Apr, [facility] [address] [id number] [facility] [place] [address] Apr, [facility] [address] [id number] [facility] [place] [address] Apr, [facility] [address] [id number] [address] [place] [address], [place] [address] March, [facility] [address] [id number] [address] [place] [address], [place] [address] March, [facility] [address] [id number] [address] [place] [address], [place] [address] March, [facility] [address] [id number] [address] [place] [address], [place] [address] March, [facility] [address] [id number] [address] [place] [address], [place] [address] March, [facility] [address] [id number] [address] [place] [address], [place] [address] March, [facility] [address] [id number] [address] [place] [address], [place] [address] March, [facility] [address] [id number] [address] [place] [address], [place] [address] March, [facility] [address] [id number] [address] [place] [address], [place] [address] March, [facility] [address] [id number] [address] [place] [address], [place] [address] March, [facility] [address] [id number] [address] [place] [address], [place] [address] March, [facility] [address] [id number] [address] [place] [address], [place] [address] March, [facility] [address] [id number] [address] [place] [address], [place] [address] March, [facility] [address] [id number] [address] [place] [address], [place] [address] March, [facility] [address] [id number] [address] [place] [address], [place] [address] March, [facility] [address] [id number] [address] [place] [address], [place] [address] March, [facility] [address] [id number] [address] [place] [address], [place] [address] March, [facility] [address] [id number] [address] [place] [address], [place] [address] March, [facility] [address] [id number] [address] [place] [address], [place] [address] March, [facility] [address] [id number] [address] [place] [address], [place] [address] March, [facility] [address] [id number] [address] [place] [address], [place] [address] Feb, [facility] [address] [id number] [address] [place] [address], [place] [address] Feb, [facility] [address] [id number] [address] [place] [address], [place] [address] Feb, [facility] [address] [id number] [address] [place] [address], [place] [address] Feb, [facility] [address] [id number] [address] [place] [address], [place] [address] Feb, [facility] [address] [id number] [address] [place] [address], [place] [address] Feb, [facility] [address] [id number] [address] [place] [address], [place] [address] Feb, [facility] [address] [id number] [address] [place] [address], [place] [address] Feb, [facility] [address] [id number] [address] [place] [address], [place] [address] Jan, [facility] [address] [id number] [address] [place] [address], [place] [address] Jan, [facility] [address] [id number] [address] [place] [address], [place] [address] Jan, [facility] [address] [id number] [address] [place] [address], [place] [address] Jan, [facility] [address] [id number] [address] [place] [address], [place] [address] Jan, [facility] [address] [id number] [address] [place] [address], [place] [address] Jan, [facility] [address] [id number] [address] [place] [address], [place] [address] Jan, [facility] [address] [id number] [address] [place] [address], [place] [address] Jan, [facility] [address] [id number] [address] [place] [address], [place] [address] Jan, [facility] [address] [id number] [address] [place] [address], [place] [address] Jan, [facility] [address] [id number] [address] [place] [address], [place] [address] Dec, [facility] [address] [id number] [address] [place] [address], [place] [address] Dec, [facility] [address] [id number] [address] [place] [address], [place] [address] Dec, [facility] [address] [id number] [address] [place] [address], [place] [address] 2013 [facility] [address] [id number] [address] [place] [address], [place] [address] 2013 [facility] [address] [id number] [address] [place] [address], [place] [address] Dec, [facility] [address] [id number] [address] [place] [address], [place] [address] Dec, [facility] [address] [id number] [address] [place] [address], [place] [address] Dec, [facility] [address] [id number] [address] [place] [address], [place] [address] Nov, [facility] [address] [id number] [address] [place] [address], [place] [address] Nov, [facility] [address] [id number] [address] [place] [address], [place] [address] Nov, [facility] [address] [id number] [address] [place] [address], [place] [address] Nov, [facility] [address] [id number] [address] [place] [address], [place] [address] Nov, [facility] [address] [id number] [address] [place] [address], [place] [address] Nov, [facility] [address] [id number] [address] [place] [address], [place] [address] Nov, [facility] [address] [id number] [address] [place] [address], [place] [address] Nov, [facility] [address] [id number] [address] [place] [address], [place] [address] Nov, [facility] [address] [id number] [address] [place] [address], [place] [address] Nov, [facility] [address] [id number] [address] [place] [address], [place] [address] Nov, [facility] [address] [id number] [address] [place] [address], [place] [address] 15 Nov, 2013 [facility] [address] [id number] [address] [place] [address], [place] [address] 15 Nov, 2013 [facility] [address] [id number] [address] [place] [address], [place] [address] Oct, [facility] [address] [id number] [address] [place] [address], [place] [address] Oct, [facility] [address] [id number] [address] [place] [address], [place] [address] Oct, [facility] [address] [id number] [address] [place] [address], [place] [address] Oct, [facility] [address] [id number] [address] [place] [address], [place] [address] Oct, [facility] [address] [id number] [address] [place] [address], [place] [address] Oct, [facility] [address] [id number] [address] [place] [address], [place] [address] Oct, [facility] [address] [id number] [address] [place] [address], [place] [address] Oct, [facility] [address] [id number] [address] [place] [address], [place] [address] Oct, [facility] [address] [id number] [address] [place] [address], [place] [address] Oct, [facility] [address] [id number] [address] [place] [address], [place] [address] Oct, [facility] [address] [id number] [address] [place] [address], [place] [address] Oct, [facility] [address] [id number] [address] [place] [address], [place] [address] Oct, [facility] [address] [id number] [address] [place] [address], [place] [address] Oct, [facility] [address] [id number] [address] [place] [address], [place] [address] 14 Sep, 2013 [facility] [address] [id number] [address] [place] [address], [place] [address] 14 Sep, 2013 [facility] [address] [id number] [address] [place] [address], [place] [address] 05 Sep, 2013 [facility] [address] [id number] [address] [place] [address], [place] [address] 05 Sep, 2013 [facility] [address] [id number] [address] [place] [address], [place] [address] Sep, [facility] [address] [id number] [address] [place] [address], [place] [address] Sep, [facility] [address] [id number] [address] [place] [address], [place] [address] Sep, [facility] [address] [id number] [address] [place] [address], [place] [address] Sep, [facility] [address] [id number] [address] [place] [address], [place] [address] Sep, [facility] [address] [id number] [address] [place] [address], [place] [address] Sep, [facility] [address] [id number] [address] [place] [address], [place] [address] Aug, [facility] [address] [id number] [address] [place] [address], [place] [address] Aug, [facility] [address] [id number] [address] [place] [address], [place] [address] Aug, [facility] [address] [id number] [address] [place] [address], [place] [address] Aug, [facility] [address] [id number] [address] [place] [address], [place] [address] Aug, [facility] [address] [id number] [address] [place] [address], [place] [address] 23 Aug, 2013 [facility] [address] [id number] [address] [place] [address], [place] [address] 23 Aug, 2013 [facility] [address] [id number] [address] [place] [address], [place] [address] 23 Aug, 2013 [facility] [address] [id number] [address] [place] [address], [place] [address] 22 Aug, 2013 [facility] [address] [id number] [address] [place] [address], [place] [address] 22 Aug, 2013 [facility] [address] [id number] [address] [place] [address], [place] [address] 18 Aug, 2013 [facility] [address] [id number] [address] [place] [address], [place] [address] 18 Aug, 2013 [facility] [address] [id number] [address] [place] [address], [place] [address] 18 Aug, 2013 [facility] [address] [id number] [address] [place] [address], [place] [address] 18 Aug, 2013 [facility] [address] [id number] [address] [place] [address], [place] [address] 17 Aug, 2013 [facility] [address] [id number] [address] [place] [address] 14 Aug, 2013 [facility] [address] [id number] [address] [place] [address] 14 Aug, 2013 [facility] [address] [id number] [address] [place] [address] 01 Aug, 2013 [facility] [address] [id number] [address] [place] [address], [place] [address] 20 Jul, 2013 [facility] [address] [id number] [address] [place] [address] 19 Jul, 2012 [facility] [address] [id number] [address] [place] [address] 18 Jul, 2013 [facility] [address] [id number] [facility] [place] [address] Jul, [facility] [address] [id number] [address] [place] [address], [place] [address] Jul, [facility] [address] [id number] [address] [place] [address], [place] [address] Jun, [facility] [address] [id number] [address] [place] [address], [place] [address] Jun, [facility] [address] [id number] [address] [place] [address], [place] [address] Jun, [facility] [address] [id number] [address] [place] [address], [place] [address] Jun, [facility] [address] [id number] [address] [place] [address], [place] [address] Jun, [facility] [address] [id number] [address] [place] [address], [place] [address] Jun, [facility] [address] [id number] [address] [place] [address], [place] [address] Jun, [facility] [address] [id number] [address] [place] [address], [place] [address] Jun, [facility] [address] [id number] [address] [place] [address], [place] [address] Jun, [facility] [address] [id number] [address] [place] [address], [place] [address] Jun, [facility] [address] [id number] [address] [place] [address], [place] [address] May, [facility] [address] [id number] [address] [place] [address], [place] [address] May, [facility] [address] [id number] [address] [place] [address], [place] [address] May, [facility] [address] [id number] [address] [place] [address], [place] [address] May, [facility] [address] [id number] [address] [place] [address], [place] [address] May, [facility] [address] [id number] [address] [place] [address], [place] [address] May, [facility] [address] [id number] [address] [place] [address], [place] [address] May, [facility] [address] [id number] [address] [place] [address], [place] [address] May, [facility] [address] [id number] [address] [place] [address], [place] [address] May, [facility] [address] [id number] [address] [place] [address], [place] [address] Apr, [facility] [address] [id number] [address] [place] [address], [place] [address] Apr, [facility] [address] [id number] [address] [place] [address], [place] [address] Apr, [facility] [address] [id number] [address] [place] [address], [place] [address] Apr, [facility] [address] [id number] [address] [place] [address], [place] [address] Apr, [facility] [address] [id number] [address] [place] [address], [place] [address] Apr, [facility] [address] [id number] [address] [place] [address], [place] [address] Apr, [facility] [address] [id number] [address] [place] [address], [place] [address] March, [facility] [address] [id number] [address] [place] [address], [place] [address] Feb, [facility] [address] [id number] [address] [place] [address], [place] [address] Feb, [facility] [address] [id number] [address] [place] [address], [place] [address] 12 Feb, 2013 [facility] [address] [id number] [address] [place] [address], [place] [address] 28 Jan, 2013 [facility] [address] [id number] [address] [place] [address], [place] [address] 21 Jan, 2013 [facility] [address] [id number] [address] [place] [address], [place] [address] 19 Jan, 2013 [facility] [address] [id number] [address] [place] [address], [place] [address] 14 Jan, 2013 [facility] [address] [id number] [address] [place] [address], [place] [address] 12 Jan, 2013 [facility] [address] [id number] [address] [place] [address], [place] [address] 08 Jan, 2013 [facility] [address] [id number] [address] [place] [address], [place] [address] 07 Jan, 2013 [facility] [address] [id number] [address] [place] [address], [place] [address] 04 Jan, 2013 [facility] [address] [id number] [address] [place] [address], [place] [address] 28 Dec, 2012 [facility] [address] [id number] [address] [place] [address], [place] [address] 25 Dec, 2012 [facility] [address] [id number] [address] [place] [address], [place] [address] 13 Dec, 2012 [facility] [address] [id number] [address] [place] [address], [place] [address] 11 Dec, 2012 [facility] [address] [id number] [address] [place] [address], [place] [address] 07 Dec, 2012 [facility] [address] [id number] [address] [place] [address], [place] [address] 06 Dec, 2012 [facility] [address] [id number] [address] [place] [address], [place] [address] 05 Dec, 2012 [facility] [address] [id number] [address] [place] [address], [place] [address] 31 Nov, 2012 [facility] [address] [id number] [address] [place] [address], [place] [address] 24 Nov, 2012 [facility] [address] [id number] [address] [place] [address], [place] [address] 18 Nov, 2012 [facility] [address] [id number] [address] [place] [address], [place] [address] 15 Nov, 2012 [facility] [address] [id number] [address] [place] [address], [place] [address] Nov, [facility] [address] [id number] [address] [place] [address], [place] [address] Nov, [facility] [address] [id number] [address] [place] [address], [place] [address] Nov, [facility] [address] [id number] [address] [place] [address], [place] [address] Oct, [facility] [address] [id number] [address] [place] [address], [place] [address] Oct, [facility] [address] [id number] [address] [place] [address], [place] [address] Oct, [facility] [address] [id number] [address] [place] [address], [place] [address] Oct, [facility] [address] [id number] [address] [place] [address], [place] [address] Oct, [facility] [address] [id number] [address] [place] [address], [place] [address] Oct, [facility] [address] [id number] [address] [place] [address], [place] [address] Oct, [facility] [address] [id number] [address] [place] [address], [place] [address] 07 Oct, 2012 [facility] [address] [id number] [address] [address] Oct, [facility] [address] [id number] [address] [place] [address], [place] [address] Oct, [facility] [address] [id number] [address] [place] [address], [place] [address] Oct, [facility] [address] [id number] [address] [place] [address], [place] [address] Oct, [facility] [address] [id number] [address] [place] [address] Sep, [facility] [address] [id number] [address] [place] [address], [place] [address] Sep, [facility] [address] [id number] [address] [place] [address] Sep, [facility] [address] [id number] [address] [place] [address], [place] [address] Sep, [facility] [address] [id number] [address] [place] [address] Sep, [facility] [address] [id number] [address] [place] [address] Sep, [facility] [address] [id number] [address] [place] [address] Sep, [facility] [address] [id number] [address] [place] [address] Sep, [facility] [address] [id number] [address] [place] [address] Sep, [facility] [address] [id number] [address] [place] [address], [place] [address] Sep, [facility] [address] [id number] [address] [place] [address] Sep, [facility] [address] [id number] [address] [place] [address] Aug, [facility] [address] [id number] [address] [place] [address], [place] [address] Aug, [facility] [address] [id number] [address] [place] [address], [place] [address] Aug, [facility] [address] [id number] [address] [place] [address], [place] [address] Aug, [facility] [address] [id number] [address] [place] [address], [place] [address] Aug, [facility] [address] [id number] [address] [place] [address], [place] [address] Aug, [facility] [address] [id number] [address] [place] [address], [place] [address] Aug, [facility] [address] [id number] [address] [place] [address], [place] [address] Aug, [facility] [address] [id number] [address] [place] [address], [place] [address] Aug, [facility] [address] [id number] [address] [place] [address], [place] [address] Aug, [facility] [address] [id number] [address] [place] [address], [place] [address] 22 Jul, 2012 [facility] [address] [id number] [address] [place] [address], [place] [address] 20 Jul, 2012 [facility] [address] [id number] [address] [place] [address], [place] [address] 10 Jul, 2012 [facility] [address] [id number] [address] [place] [address], [place] [address] 06 Jul, 2012 [facility] [address] [id number] [address] [place] [address], [place] [address] 30 Jun, 2012 [facility] [address] [id number] [address] [place] [address], [place] [address] Jun, [facility] [address] [id number] [address] [place] [address], [place] [address] 16 Jun, 2012 [facility] [address] [id number] [address] [place] [address], [place] [address] Jun, [facility] [address] [id number] [address] [place] [address], [place] [address] Jun, [facility] [address] [id number] [address] [place] [address], [place] [address] Jun, [facility] [address] [id number] [address] [place] [address], [place] [address] Jun, [facility] [address] [id number] [address] [place] [address], [place] [address] May, [facility] [address] [id number] [address] [place] [address], [place] [address] May, [facility] [address] [id number] [address] [place] [address], [place] [address] May, [facility] [address] [id number] [address] [place] [address], [place] [address] May, [facility] [address] [id number] [address] [place] [address], [place] [address] May, [facility] [address] [id number] [address] [place] [address], [place] [address] Apr, [facility] [address] [id number] [address] [place] [address], [place] [address] Apr, [facility] [address] [id number] [address] [place] [address], [place] [address] Apr, [facility] [address] [id number] [address] [place] [address], [place] [address] Apr, [facility] [address] [id number] [address] [place] [address], [place] [address] Apr, [facility] [address] [id number] [address] [place] [address], [place] [address] March, [facility] [address] [id number] [address] [place] [address], [place] [address] March, [facility] [address] [id number] [address] [place] [address], [place] [address] March, [facility] [address] [id number] [address] [place] [address], [place] [address] March, [facility] [address] [id number] [address] [place] [address], [place] [address] March, [facility] [address] [id number] [address] [place] [address], [place] [address] March, [facility] [address] [id number] [address] [place] [address], [place] [address] March, [facility] [address] [id number] [address] [place] [address], [place] [address] March, [facility] [address] [id number] [address] [place] [address], [place] [address] March, [facility] [address] [id number] [address] [place] [address], [place] [address] March, [facility] [address] [id number] [address] [place] [address], [place] [address] 30 Feb, 2012 [facility] [address] [id number] [address] [place] [address], [place] [address] 27 Feb, 2012 [facility] [address] [id number] [address] [place] [address], [place] [address] 26 Feb, 2012 [facility] [address] [id number] [address] [place] [address], [place] [address] 19 Feb, 2012 [facility] [address] [id number] [address] [place] [address], [place] [address] 17 Feb, 2012 [facility] [address] [id number] [address] [place] [address], [place] [address] 17 Feb, 2012 [facility] [address] [id number] [address] [place] [address], [place] [address] 12 Feb, 2012 [facility] [address] [id number] [address] [place] [address], [place] [address] Feb, [facility] [address] [id number] [address] [place] [address], [place] [address] Feb, [facility] [address] [id number] [address] [place] [address], [place] [address] 08 Jan, 2012 [facility] [address] [id number] [address] [place] [address], [place] [address] Jan, [facility] [address] [id number] [address] [place] [address], [place] [address] 05 Jan, 2012 [facility] [address] [id number] [address] [place] [address], [place] [address] Jan, [facility] [address] [id number] [address] [place] [address], [place] [address] Dec, [facility] [address] [id number] [address] [place] [address], [place] [address] Dec, [facility] [address] [id number] [address] [place] [address], [place] [address] Nov, [facility] [address] [id number] [address] [place] [address], [place] [address] Nov, [facility] [address] [id number] [address] [place] [address], [place] [address] Nov, [facility] [address] [id number] [address] [place] [address], [place] [address] Nov, [facility] [address] [id number] [address] [place] [address], [place] [address] Nov, [facility] [address] [id number] [address] [place] [address], [place] [address] Oct, [facility] [address] [id number] [address] [place] [address], [place] [address] Oct, [facility] [address] [id number] [address] [place] [address], [place] [address] Oct, [facility] [address] [facility] [id number] [address] [place] [address] Oct, [facility] [address] [facility] [id number] [address] [place] [address] Oct, [facility] [address] [facility] [id number] [address] [place] [address] Oct, [facility] [address] [facility] [id number] [address] [place] [address] Oct, [facility] [address] [facility] [id number] [address] [place] [address] Oct, [facility] [address] [facility] [id number] [address] [place] [address] Sep, IMMUNIZATIONS No Known Immunizations SOCIAL HISTORY [...] History No Surgical history information Hospitalization History [facility]- Urosepsis, ab d pain and fever, discharged 11/27/2017 11/26/2017 Hospitalization History [facility]- Went Unrepsonsive, Hit head 2017 Hospitalization History [facility] [place]- Back Pain 05/05/ 8
--- OUTSIDE RECORDS SUMMARY | 2020-06-18 14:38 | XMS REPORT ---
Author Author Sanjuanita Sanchez [facility] Address [address] [place] [address] Care Team Providers Care Collector Of Internal Revenue Name Role Phone MARIA DE JESUS Sanchez Unavailable PROBLEMS Type Condition ICD9-CM Code PXR39-KS Code Onset Dates Condition S tatus SNOMED Code Problem Hypertension I10 Active 8280704 3 Problem Hyperlipidemia E78.5 Active 59074 004 Problem Coronary artery disease I25.10 Active 37280791 Problem Low back pain M54.5 Active 824974 009 Problem Other chronic pain G89.29 Active 8 3765250 Problem Ventral hernia without obstruction or gangrene K43 .9 Active 591033805 Problem Type 2 diabetes mellitus wit hout complication, without long-term current use of insulin E11.9 Active 833053305 Problem Anxiety F41.9 Active 60462312 Problem Peripheral vascular disease I73.9 Ac tive 348133247 Problem Insomnia G47.00 Active 611555504 Problem Microcytic anemia D50.9 Active 23 5437309 Problem Pharyngeal dysphagia R13.13 Active 22621198319954 Problem Other iron deficiency anemia D50.8 A ctive 40356579 Problem Reactive depression F32.9 Active 61018243 Problem Paroxysmal atrial fibrillation I48.0 Active 904481830 Problem 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 Active 47351161 Problem Encounter for suprapubic catheter care Z43.5 Active 387934244 Problem Neurogenic bladder N31.9 Active 3 76606503 ALLERGIES No Information ENCOUNTERS Encounter Location Date Diagnosis [facility] [address] [facility] [id number] [address] [place] [phone] Feb, Anxiety F41.9 and Strain of right shoulder, subsequent encounter S46.911D [facility] [address] [facility] [id number] [address] [place] [id number] Jan, Anxiety F41.9 and Strain of right shoulder, subsequent encounter S46.911D [facility] [address] [id number] [address] [place] [phone] Jan, [facility] [address] [place] [id number] Jan, Neurogenic bladder N31.9 [facility] [address] [id number] [address] [place] [phone] Dec, [facility] [address] [id number] [address] [place] [phone] Dec, [facility] [address] [id number] [address] [place] [phone] Dec, Anxiety F41.9 and Strain of right shoulder, subsequent encounter S46.911D [facility] [facility] [address] [id number] [address] [place] [phone] 10 Dec, 2019 Other iron deficiency anemia D50.8 [place] [facility] [address] [id number] [address] [place] [phone] 04 Dec, 2019 [facility] [address] [place] [id number] Dec, Encounter for suprapubic catheter care Z 43.5 and Microcytic anemia D50.9 [facility] [address] [id number] [address] [place] [phone] Dec, [facility] [address] [id number] [address] [place] [phone] Nov, Anxiety F41.9 and Strain of right shoulder, subsequent encounter S46.911D [facility] [address] [id number] [address] [place] [phone] Nov, Hypertension I10 Via [facility] [employer] [address] [place] [id number] Nov, Pneumonia of both lungs due to infectiou s organism, unspecified part of lung J18.9 and Suprapubic catheter Z93.59 [facility] [address] [id number] [address] [place] [phone] Nov, Hypertension I10 and Reactiv e depression F32.9 [facility] [address] [id number] [address] [place] [phone] Oct, Strain of right shoulder, scherer bsequent encounter S46.911D and Anxiety F41.9 [facility] [address] [id number] [address] [place] [id number] Oct, Via [facility] [address] [place] [id number] Oct, Suprapubic catheter Z93.59 and Candidias is, intertriginous B37.2 [facility] [address] [id number] [address] [place] [phone] Oct, Suprapubic catheter Z93.59 [facility] [address] [id number] [address] [place] [id number] Oct, Anxiety F41.9 and Strain of right shoulder, subsequent encounter S46.911D [facility] [address] [id number] [address] [place] [phone] Sep, [facility] [address] [id number] [address] [place] [id number] Sep, [facility] [address] [id number] [address] [place] [phone] Sep, Via [facility] [address] [place] [id number] Sep, Suprapubic catheter Z93.59 [facility] [address] [id number] [address] [place] [id number] Sep, Anxiety F41.9 and Strain of right shoulder, subsequent encounter S46.911D [facility] [address] [id number] [address] [place] [phone] Aug, [facility] [address] [id number] [address] [place] [id number] Aug, [facility] [address] [id number] [address] [place] [phone] Aug, Anxiety F41.9 and Strain of right shoulder, subsequent encounter S46.911D [facility] [address] [place] [id number] Aug, Suprapubic catheter Z93.59 [facility] [address] [id number] [address] [place] [id number] Jul, Strain of right shoulder, scherer bsequent encounter S46.911D and Anxiety F41.9 [facility] [address] [id number] [address] [place] [phone] Jul, Anxiety F41.9 [facility] [address] [id number] [address] [place] [phone] Jun, [facility] [address] [id number] [address] [place] [phone] Jun, [facility] [address] [id number] [address] [place] [phone] Jun, [facility] [address] [id number] [address] [place] [phone] Jun, Strain of right shoulder, scherer bsequent encounter S46.911D [facility] [address] [id number] [address] [place] [address] Jun, Strain of right shoulder, scherer bsequent encounter S46.911D [facility] [address] [id number] [address] [place] [phone] Jun, Anxiety F41.9 [facility] [address] [place] [id number] Jun, Neurogenic bladder N31.9 and Anxiety F41 .9 [facility] [address] [place] [id number] May, Anxiety F41.9 [facility] [address] [id number] [address] [place] [id number] May, Dysuria R30.0 [facility] [facility] [address] [id number] [address] [place] [phone] May, Strain of right shoulder, scherer bsequent encounter S46.911D and Anxiety F41.9 [place] [facility] [address] [id number] [address] [place] [address] Apr, Via [facility] [address] [place] [id number] 18 Apr, 2019 Strain of right shoulder, subsequent enc ounter S46.911D [place] [facility] [address] [id number] [address] [place] [id number] 14 Apr, 2019 Strain of right shoulder, scherer bsequent encounter S46.911D and Anxiety F41.9 [facility] [address] [place] [id number] 13 Apr, 2019 Type 2 diabetes mellitus without complic ation, without long-term current use of insulin E11.9 and Neurogenic bladder N31.9 [facility] [address] [place] [id number] 11 Apr, 2019 Strain of right shoulder, subsequent enc ounter S46.911D ; History of GI bleed Z87.19 ; Neurogenic bladder N31.9 and Reactive depression F32.9 [place] [facility] [address] [id number] [address] [place] [id number] 10 Apr, 2019 Acute pain of left shoulder M25.512 [place] [address] [id number] [address] [place] [phone] 07 Apr, 2019 [place] [facility] [address] [id number] [address] [place] [id number] Apr, Anxiety F41.9 and 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 centrifugal separator 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 [facility] [address] [place] [id number] March, Gastrointestinal hemorrhage associated w ith acute gastritis K29.01 [place] [address] [id number] [address] [place] [phone] March, Via [facility] [address] [place] [id number] March, Bronchitis J40 [facility] [address] [id number] [address] [place] [phone] March, Cough R05 [facility] [address] [id number] [address] [place] [id number] March, Other chronic pain G89.29 [facility] [address] [id number] [address] [place] [phone] March, Anxiety F41.9 [facility] [address] [id number] [address] [place] [phone] March, [facility] [address] [id number] [address] [place] [phone] Feb, Other chronic pain G89.29 [facility] [address] [id number] [address] [place] [address] Feb, Anxiety F41.9 [facility] [address] [id number] [address] [place] [phone] Feb, Other chronic pain G89.29 [facility] [address] [place] [id number] Feb, Neurogenic bladder N31.9 and Suprapubic catheter Z93.59 [facility] [address] [id number] [address] [place] [phone] Jan, Anxiety F41.9 [facility] [address] [id number] [address] [place] [id number] Dec, Anxiety F41.9 [facility] [address] [id number] [address] [place] [phone] Dec, Other chronic pain G89.29 an d Anxiety F41.9 [facility] [address] [id number] [address] [place] [id number] Dec, Via [facility] [address] [place] [id number] Dec, Neurogenic bladder N31.9 and Suprapubic catheter Z93.59 [facility] [address] [id number] [address] [place] [phone] Nov, Other chronic pain G89.29 an d Anxiety F41.9 [facility] [address] [id number] [address] [place] [phone] Nov, Via [facility] [address] [place] [id number] Nov, Suprapubic catheter Z93.59 [facility] [address] [id number] [address] [place] [id number] Oct, Other chronic pain G89.29 an d Anxiety F41.9 [facility] [address] [id number] [address] [place] [id number] Oct, [facility] [address] [id number] [address] [place] [id number] Oct, Suprapubic catheter Z93.59 [facility] [address] [id number] [address] [place] [id number] Oct, Via [facility] [address] [place] [id number] Oct, [facility] [address] [id number] [address] [place] [phone] Oct, Anxiety F41.9 [facility] [address] [id number] [address] [place] [phone] Oct, Anxiety F41.9 [facility] [address] [place] [id number] Oct, Other chronic pain G89.29 [facility] [address] [id number] [address] [place] [phone] Sep, Other chronic pain G89.29 [facility] [address] [place] [id number] Sep, Suprapubic catheter Z93.59 and Cervicalg ia M54.2 [facility] [address] [id number] [address] [place] [id number] Sep, [facility] [address] [id number] [address] [place] [id number] Sep, [facility] [address] [id number] [address] [place] [phone] Sep, [facility] [address] [place] [id number] Aug, Cystitis N30.90 [facility] [address] [id number] [address] [place] [id number] Aug, [facility] [address] [id number] [address] [place] [id number] Aug, Other chronic pain G89.29 [facility] [address] [id number] [address] [place] [phone] Aug, [facility] [address] [place] [id number] Aug, Encounter for suprapubic catheter care Z 43.5 [facility] [address] [id number] [address] [place] [phone] Jul, [facility] [address] [place] [id number] Jul, [facility] [address] [id number] [address] [place] [phone] Jul, Other chronic pain G89.29 [facility] [address] [id number] [address] [place] [phone] Jul, [facility] [address] [id number] [address] [place] [id number] Jul, [facility] [address] [place] [id number] Jun, 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 [facility] [address] [id number] [address] [place] [phone] Jun, Other chronic pain G89.29 [facility] [address] [id number] [address] [place] [phone] Jun, Via [facility] [address] [place] [id number] May, Anxiety F41.9 ; Type 2 diabetes mellitus without complication, without long-term current use of insulin E11.9 ; Hypertension I10 ; Low back pain M54.5 ; Paroxysmal atrial fibrillation I48.0 and 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 [facility] [address] [id number] [address] [place] [id number] May, Other chronic pain G89.29 [facility] [address] [place] [id number] May, Low back pain M54.5 [facility] [address] [id number] [address] [place] [phone] May, [facility] [address] [id number] [address] [place] [phone] Apr, Other chronic pain G89.29 [facility] [address] [id number] [address] [place] [id number] Apr, [facility] [address] [id number] [address] [place] [phone] Apr, Via [facility] [address] [place] [id number] Apr, Closed compression fracture of L3 lumbar vertebra with routine healing, subsequent encounter S32.030D [facility] [address] [place] [id number] Apr, Low back pain M54.5 [facility] [address] [place] [id number] Apr, Coccydynia M53.3 [facility] [address] [id number] [address] [place] [phone] March, [facility] [address] [facility] [id number] [address] [place] [phone] March, Other chronic pain G89.29 [facility] [address] [facility] [id number] [address] [place] [id number] March, [facility] [address] [facility] [id number] [address] [place] [phone] March, [facility] [address] [facility] [id number] [address] [place] [phone] Feb, [facility] [address] [id number] [address] [place] [phone] Feb, Other chronic pain G89.29 [facility] [address] [place] [id number] Feb, Other chronic pain G89.29 and Anxiety F4 1.9 [facility] [address] [facility] [id number] [address] [place] [phone] Feb, [facility] [address] [facility] [id number] [address] [place] [id number] Jan, [facility] [address] [facility] [id number] [address] [place] [phone] Jan, [facility] [address] [facility] [id number] [address] [place] [phone] Jan, [facility] [address] [facility] [id number] [address] [place] [phone] Jan, [facility] [address] [facility] [id number] [address] [place] [id number] Dec, Via [facility] [address] [place] [id number] Dec, Peripheral vascular disease I73.9 ; 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 ; Other chronic pain G89.29 ; Anxiety F41.9 ; Reactive depression F32.9 ; Insomnia G47.00 and Type 2 diabetes mellitus without complication, without long-term current use of insulin E11.[address] [facility] [address] [id number] [address] Nov, [facility] [address] [id number] [place] [id number] Nov, Anxiety F41.9 [facility] [address] [facility] [id number] [address] [place] [phone] Nov, [facility] [address] [id number] [place] [id number] Nov, Anxiety F41.9 [facility] [address] [place] [id number] Nov, Status post surgery Z98.890 ; Confused R 41.0 ; Anxiety F41.9 and Other chronic pain G89.29 [facility] [address] [id number] [place] [id number] Nov, Other chronic pain G89.29 [facility] [address] [facility] [id number] [address] [place] [phone] Oct, [facility] [address] [id number] [place] [id number] Oct, Other chronic pain G89.29 [facility] [address] [facility] [id number] [address] [place] [phone] Oct, Anxiety F41.9 [facility] [address] [id number] [place] [id number] Sep, Other chronic pain G89.29 [facility] [address] [id number] [place] [id number] Sep, [facility] [address] [place] [id number] Aug, Dysuria R30.0 and Anxiety F41.9 [facility] [address] [id number] [address] [place] [id number] Aug, [facility] [address] [id number] [place] [id number] Aug, Other chronic pain G89.29 [facility] [address] [id number] [address] [place] [id number] Jul, Other chronic pain G89.29 [facility] [address] [id number] [place] [id number] Jun, [facility] [address] [id number] [place] [id number] Jun, Other chronic pain G89.29 [facility] [address] [id number] [address] [place] [phone] Jun, [facility] [address] [id number] [address] [place] [phone] May, Other chronic pain G89.29 [facility] [address] [id number] [address] [place] [phone] Apr, Other chronic pain G89.29 [facility] [address] [place] [id number] Apr, Reactive depression F32.9 and Pharyngeal dysphagia R13.13 [facility] [address] [id number] [address] [place] [phone] Apr, Urinary tract infection with out hematuria, site unspecified N39.0 [facility] [address] [id number] [address] [place] [phone] March, Other chronic pain G89.29 [facility] [address] [id number] [address] [place] [phone] Feb, Other chronic pain G89.29 [facility] [address] [id number] [address] [place] [phone] Feb, [facility] [address] [id number] [place] [id number] Feb, [facility] [address] [place] [id number] Feb, Dysuria R30.0 and Ventral hernia without obstruction or gangrene K43.9 [facility] [address] [id number] [address] [place] [phone] Jan, Other chronic pain G89.29 [facility] [address] [id number] [id number] Dec, Other chronic pain G89.29 [facility] [address] [id number] [address] [place] [id number] Nov, Other chronic pain G89.29 [facility] [address] [place] [id number] Nov, Lymphadenitis I88.9 [facility] [address] [id number] [address] [place] [phone] Nov, Other chronic pain G89.29 [facility] [address] [facility] [id number] [address] [place] [phone] Nov, [facility] [id number] [place] [id number] Nov, Other chronic pain G89.29 Via [employer] [address] [place] [id number] Oct, Low back pain M54.5 ; Hypertension I10 a nd Type 2 diabetes mellitus without complication, without long-term current use of insulin E11.9 [facility] [address] [id number] [address] [place] [id number] Oct, [facility] [address] [id number] [address] [place] [phone] Oct, [facility] [address] [id number] [address] [place] [phone] Oct, [facility] [address] [id number] [address] [place] [phone] Oct, [facility] [address] [id number] [address] [place] [phone] Sep, [facility] [address] [id number] [address] [place] [phone] Sep, [facility] [address] [id number] [address] [place] [phone] Aug, Other chronic pain G89.29 [facility] [address] [id number] [address] [place] [phone] Jul, [facility] [address] [id number] [address] [place] [phone] Jul, [facility] [address] [id number] [address] [place] [phone] Jul, [facility] [address] [id number] [address] [place] [phone] Jun, [facility] [address] [id number] [address] [place] [phone] Jun, [facility] [address] [place] [id number] Jun, Low back pain M54.5 ; Other chronic pain G89.29 and Coronary artery disease I25.10 [facility] [address] [id number] [address] [place] [phone] Jun, [facility] [address] [id number] [address] [place] [phone] May, [facility] [address] [address] [id number] [address] [place] [phone] May, [facility] [address] [id number] [address] [place] [address] May, Other chronic pain G89.29 [facility] [address] [id number] [address] [place] [address] May, [facility] [address] [id number] [address] [place] [address] Apr, [facility] [address] [id number] [address] [place] [address] Apr, Acute cystitis without hemat uria N30.00 [facility] [address] [id number] [address] [place] [address] 16 Apr, 2016 Acute cystitis without hemat uria N30.00 ; Coronary artery disease I25.10 ; Low back pain M54.5 and Other chronic pain G89.29 [facility] [address] [id number] [address] [place] [address] 13 Apr, 2016 Other chronic pain G89.29 [facility] [address] [id number] [address] [place] [address] March, Other chronic pain G89.29 [facility] [address] [id number] [address] [place] [address] 18 Feb, 2016 [facility] [address] [id number] [address] [place] [address] Feb, Arthritis M19.90 [facility] [address] [id number] [address] [place] [address] Feb, [facility] [address] [id number] [address] [place] [address] Jan, [facility] [address] [id number] [address] [place] [address] Jan, [facility] [address] [id number] [address] [place] [address] Jan, Other chronic pain G89.29 [facility] [address] [id number] [address] [place] [address] Jan, Hypertension I10 ; Coronary artery disease I25.10 and Insomnia G47.00 [facility] [address] [id number] [address] [place] [address] Jan, [facility] [address] [id number] [address] [place] [address] 29 Dec, 2015 Right hip pain M25.551 [facility] [address] [id number] [address] [place] [phone] Dec, [facility] [address] [id number] [address] [place] [address] Dec, [facility] [address] [id number] [address] [place] [address] Dec, [facility] [address] [id number] [address] [place] [address] Dec, Other chronic pain G89.29 [facility] [address] [id number] [address] [place] [address] Dec, [facility] [address] [id number] [address] [place] [address] Nov, [facility] [address] [id number] [address] [place] [address] Nov, Other chronic pain G89.29 [facility] [address] [id number] [address] [place] [address] Nov, Right hip pain M25.551 and C oronary artery disease I25.10 [facility] [address] [id number] [address] [place] [address] Nov, Other chronic pain G89.29 [facility] [address] [id number] [address] [place] [address] Oct, [facility] [address] [id number] [address] [place] [phone] Oct, [facility] [address] [id number] [address] [place] [address] Sep, [facility] [address] [id number] [address] [place] [phone] Sep, [facility] [address] [id number] [address] [place] [address] Aug, [facility] [address] [id number] [address] [place] [address] Aug, Hypertension I10 ; Coronary artery disease I25.10 and Arthritis M19.90 [facility] [address] [id number] [address] [place] [address], [place] [address] Jun, [facility] [address] [id number] [address] [place] [address] Jun, Essential hypertension, jayson gn 401.1 ; Other chronic pain 338.29 and Chronic airway obstruction, not elsewhere classified 496 [facility] [address] [id number] [address] [place] [address] Jun, [facility] [address] [id number] [address] [place] [address], [place] [address] Jun, [facility] [address] [id number] [address] [place] [address] Jun, [facility] [address] [id number] [address] [place] [address] May, [facility] [address] [id number] [address] [place] [address] May, [facility] [address] [id number] [address] [place] [address] Apr, [facility] [address] [id number] [address] [place] [phone] Apr, [facility] [address] [id number] [address] [place] [id number] Apr, [facility] [address] [id number] [address] [place] [phone] March, [facility] [address] [id number] [address] [place] [address] March, [facility] [address] [id number] [address] [place] [phone] March, [facility] [address] [id number] [address] [place] [id number] March, [facility] [address] [id number] [address] [place] [address], [place] [address] March, Sialadenitis 527.2 [facility] [address] [id number] [address] [place] [address], [place] [address] Feb, [facility] [address] [id number] [address] [place] [address], [place] [address] Feb, [facility] [address] [id number] [address] [place] [address], [place] [address] Feb, [facility] [address] [id number] [address] [place] [address], [place] [address] Feb, [facility] [address] [id number] [address] [place] [address], [place] [address] Feb, [facility] [address] [id number] [address] [place] [address], [place] [address] Jan, [facility] [address] [id number] [address] [place] [address], [place] [address] Jan, [facility] [address] [id number] [address] [place] [address], [place] [address] Jan, [facility] [address] [id number] [address] [place] [address], [place] [address] Jan, [facility] [address] [id number] [address] [place] [address], [place] [address] Jan, [facility] [address] [id number] [address] [place] [address], [place] [address] Jan, [facility] [address] [id number] [address] [place] [address], [place] [address] Dec, [facility] [address] [id number] [address] [place] [address], [place] [address] Dec, [facility] [address] [id number] [address] [place] [address], [place] [address] Dec, [facility] [address] [id number] [address] [place] [phone] Dec, [facility] [address] [id number] [address] [place] [address], [place] [address] Dec, [facility] [address] [id number] [address] [place] [address] Dec, [facility] [address] [id number] [address] [place] [address], [place] [address] Nov, [facility] [address] [id number] [address] [place] [address], [place] [address] Nov, [facility] [address] [id number] [address] [place] [address], [place] [address] Nov, [facility] [address] [id number] [address] [place] [address], [place] [address] Nov, [facility] [address] [id number] [address] [place] [phone] Nov, [facility] [address] [id number] [address] [place] [address], [place] [address] Nov, [facility] [address] [id number] [address] [place] [phone] Nov, [facility] [address] [id number] [address] [place] [phone] Nov, [facility] [address] [id number] [address] [place] [address] Nov, [facility] [address] [id number] [address] [place] [phone] Nov, [facility] [address] [id number] [address] [place] [address] Nov, [facility] [address] [id number] [address] [place] [phone] Nov, [facility] [address] [id number] [address] [place] [address] Nov, [facility] [address] [id number] [address] [place] [address], [place] [address] Nov, [facility] [address] [id number] [address] [place] [address], [place] [address] Oct, [facility] [address] [id number] [address] [place] [address], [place] [address] Oct, [facility] [address] [id number] [address] [place] [address], [place] [address] Oct, [facility] [address] [id number] [address] [place] [address], [place] [address] Oct, [facility] [address] [id number] [address] [place] [address], [place] [address] Oct, [facility] [address] [id number] [address] [place] [address], [place] [address] Oct, [facility] [address] [id number] [address] [place] [address], [place] [address] Oct, [facility] [address] [id number] [address] [place] [address], [place] [address] Oct, [facility] [address] [id number] [address] [place] [address], [place] [address] Oct, [facility] [address] [id number] [address] [place] [address], [place] [address] Sep, [facility] [address] [id number] [address] [place] [address], [place] [address] Sep, [facility] [address] [id number] [address] [place] [address], [place] [address] Sep, [facility] [address] [id number] [address] [place] [address], [place] [address] Sep, [facility] [address] [id number] [address] [place] [address], [place] [address] Sep, [facility] [address] [id number] [address] [place] [address], [place] [address] Sep, [facility] [address] [id number] [address] [place] [address], [place] [address] Sep, [facility] [address] [id number] [address] [place] [address], [place] [address] Sep, [facility] [address] [id number] [address] [place] [address], [place] [address] Sep, [facility] [address] [id number] [address] [place] [address], [place] [address] Sep, [facility] [address] [id number] [address] [place] [address], [place] [address] Sep, [facility] [address] [id number] [address] [place] [address], [place] [address] Sep, [facility] [address] [id number] [address] [place] [address], [place] [address] Aug, [facility] [address] [id number] [address] [place] [address], [place] [address] Aug, [facility] [address] [id number] [address] [place] [address], [place] [address] Aug, [facility] [address] [id number] [address] [place] [address], [place] [address] Aug, [facility] [address] [id number] [address] [place] [address], [place] [address] Aug, [facility] [address] [id number] [address] [place] [phone] Aug, [facility] [address] [id number] [address] [place] [address], [place] [address] Aug, [facility] [address] [id number] [address] [place] [address], [place] [address] Aug, [facility] [address] [id number] [address] [place] [address], [place] [address] 30 Jul, 2014 [facility] [address] [id number] [facility] [place] [address] 30 Jul, 2013 [facility] [address] [id number] [address] [place] [address], [place] [address] 30 Jul, 2013 [facility] [address] [id number] [facility] [place] [address] 30 Jul, 2013 [facility] [address] [id number] [address] [place] [address], [place] [address] 25 Jul, 2013 [facility] [address] [id number] [address] [place] [address], [place] [address] 25 Jul, 2013 [facility] [address] [id number] [address] [place] [address], [place] [address] 15 Jul, 2013 [facility] [address] [id number] [address] [place] [address], [place] [address] 15 Jul, 2013 [facility] [address] [id number] [address] [place] [address], [place] [address] 11 Jul, 2013 [facility] [address] [id number] [address] [place] [address], [place] [address] Jul, 2013 [facility] [address] [id number] [address] [place] [address], [place] [address] Jun, [facility] [address] [id number] [address] [place] [address], [place] [address] Jun, [facility] [address] [id number] [address] [place] [address], [place] [address] Jun, [facility] [address] [id number] [address] [place] [address], [place] [address] Jun, [facility] [address] [id number] [address] [place] [address], [place] [address] Jun, [facility] [address] [id number] [address] [place] [address], [place] [address] Jun, [facility] [address] [id number] [address] [place] [address], [place] [address] Jun, [facility] [address] [id number] [facility] [place] [address] Jun, [facility] [address] [id number] [facility] [place] [address] Jun, [facility] [address] [id number] [facility] [place] [address] Jun, [facility] [address] [id number] [address] [place] [address], [place] [address] Jun, [facility] [address] [id number] [address] [place] [address], [place] [address] Jun, [facility] [address] [id number] [address] [place] [address], [place] [address] Jun, [facility] [address] [id number] [address] [place] [address], [place] [address] Jun, [facility] [address] [id number] [address] [place] [address], [place] [address] Jun, [facility] [address] [id number] [address] [place] [address], [place] [address] Jun, [facility] [address] [id number] [address] [place] [address], [place] [address] Jun, [facility] [address] [id number] [address] [place] [address], [place] [address] Jun, [facility] [address] [id number] [address] [place] [address], [place] [address] Jun, [facility] [address] [id number] [address] [place] [address], [place] [address] Jun, [facility] [address] [id number] [address] [place] [address], [place] [address] Jun, [facility] [address] [id number] [address] [place] [address], [place] [address] Jun, [facility] [address] [id number] [address] [place] [address], [place] [address] May, [facility] [address] [id number] [facility] [place] [address] May, [facility] [address] [id number] [address] [place] [address], [place] [address] May, [facility] [address] [id number] [address] [place] [address], [place] [address] May, [facility] [address] [id number] [address] [place] [address], [place] [address] May, [facility] [address] [id number] [address] [place] [address], [place] [address] May, [facility] [address] [id number] [address] [place] [address], [place] [address] May, [facility] [address] [id number] [address] [place] [address], [place] [address] May, [facility] [address] [id number] [address] [place] [address], [place] [address] May, [facility] [address] [id number] [address] [place] [address], [place] [address] May, [facility] [address] [id number] [address] [place] [address], [place] [address] May, [facility] [address] [id number] [address] [place] [address], [place] [address] May, [facility] [address] [id number] [address] [place] [address], [place] [address] May, [facility] [address] [id number] [address] [place] [address], [place] [address] Apr, [facility] [address] [id number] [address] [place] [address], [place] [address] Apr, [facility] [address] [id number] [address] [place] [address], [place] [address] Apr, [facility] [address] [id number] [facility] [place] [address] Apr, [facility] [address] [id number] [facility] [place] [address] Apr, [facility] [address] [id number] [facility] [place] [address] Apr, [facility] [address] [id number] [facility] [place] [address] Apr, [facility] [address] [id number] [facility] [place] [address] Apr, [facility] [address] [id number] [address] [place] [address], [place] [address] Apr, [facility] [address] [id number] [address] [place] [address], [place] [address] March, [facility] [address] [id number] [address] [place] [address], [place] [address] March, [facility] [address] [id number] [address] [place] [address], [place] [address] March, [facility] [address] [id number] [address] [place] [address], [place] [address] March, [facility] [address] [id number] [address] [place] [address], [place] [address] March, [facility] [address] [id number] [address] [place] [address], [place] [address] March, [facility] [address] [id number] [address] [place] [address], [place] [address] March, [facility] [address] [id number] [address] [place] [address], [place] [address] March, [facility] [address] [id number] [address] [place] [address], [place] [address] March, [facility] [address] [id number] [address] [place] [address], [place] [address] March, [facility] [address] [id number] [address] [place] [address], [place] [address] March, [facility] [address] [id number] [address] [place] [address], [place] [address] March, [facility] [address] [id number] [address] [place] [address], [place] [address] March, [facility] [address] [id number] [address] [place] [address], [place] [address] March, [facility] [address] [id number] [address] [place] [address], [place] [address] March, [facility] [address] [id number] [address] [place] [address], [place] [address] March, [facility] [address] [id number] [address] [place] [address], [place] [address] March, [facility] [address] [id number] [address] [place] [address], [place] [address] March, [facility] [address] [id number] [address] [place] [address], [place] [address] March, [facility] [address] [id number] [address] [place] [address], [place] [address] March, [facility] [address] [id number] [address] [place] [address], [place] [address] Feb, [facility] [address] [id number] [address] [place] [address], [place] [address] Feb, [facility] [address] [id number] [address] [place] [address], [place] [address] Feb, [facility] [address] [id number] [address] [place] [address], [place] [address] Feb, [facility] [address] [id number] [address] [place] [address], [place] [address] Feb, [facility] [address] [id number] [address] [place] [address], [place] [address] 17 Feb, 2014 [facility] [address] [id number] [facility] [place] [address] Feb, [facility] [address] [id number] [address] [place] [address], [place] [address] Feb, [facility] [address] [id number] [address] [place] [address], [place] [address] Jan, [facility] [address] [id number] [address] [place] [address], [place] [address] Jan, [facility] [address] [id number] [address] [place] [address], [place] [address] Jan, [facility] [address] [id number] [address] [place] [address], [place] [address] Jan, [facility] [address] [id number] [address] [place] [address], [place] [address] Jan, [facility] [address] [id number] [address] [place] [address], [place] [address] Jan, [facility] [address] [id number] [address] [place] [address], [place] [address] Jan, [facility] [address] [id number] [address] [place] [address], [place] [address] Jan, [facility] [address] [id number] [address] [place] [address], [place] [address] Jan, [facility] [address] [id number] [address] [place] [address], [place] [address] Jan, [facility] [address] [id number] [address] [place] [address], [place] [address] Dec, [facility] [address] [id number] [address] [place] [address], [place] [address] Dec, [facility] [address] [id number] [address] [place] [address], [place] [address] Dec, [facility] [address] [id number] [address] [place] [address], [place] [address] 2013 [facility] [address] [id number] [address] [place] [address] [address] 2013 [facility] [address] [id number] [address] [place] [address], [place] [address] Dec, [facility] [address] [id number] [address] [place] [address], [place] [address] Dec, [facility] [address] [id number] [address] [place] [address], [place] [address] Dec, [facility] [address] [id number] [address] [place] [address], [place] [address] Nov, [facility] [address] [id number] [address] [place] [address], [place] [address] Nov, [facility] [address] [id number] [address] [place] [address], [place] [address] Nov, [facility] [address] [id number] [address] [place] [address], [place] [address] Nov, [facility] [address] [id number] [address] [place] [address], [place] [address] Nov, [facility] [address] [id number] [address] [place] [address], [place] [address] Nov, [facility] [address] [id number] [address] [place] [address], [place] [address] Nov, [facility] [address] [id number] [address] [place] [address], [place] [address] Nov, [facility] [address] [id number] [address] [place] [address], [place] [address] Nov, [facility] [address] [id number] [address] [place] [address], [place] [address] Nov, [facility] [address] [id number] [address] [place] [address], [place] [address] Nov, [facility] [address] [id number] [address] [place] [address], [place] [address] Nov, [facility] [address] [id number] [address] [place] [address], [place] [address] Nov, [facility] [address] [id number] [address] [place] [address], [place] [address] Oct, [facility] [address] [id number] [address] [place] [address], [place] [address] Oct, [facility] [address] [id number] [address] [place] [address], [place] [address] Oct, [facility] [address] [id number] [address] [place] [address], [place] [address] Oct, [facility] [address] [id number] [address] [place] [address], [place] [address] Oct, [facility] [address] [id number] [address] [place] [address], [place] [address] Oct, [facility] [address] [id number] [address] [place] [address], [place] [address] Oct, [facility] [address] [id number] [address] [place] [address], [place] [address] Oct, [facility] [address] [id number] [address] [place] [address], [place] [address] Oct, [facility] [address] [id number] [address] [place] [address], [place] [address] Oct, [facility] [address] [id number] [address] [place] [address], [place] [address] Oct, [facility] [address] [id number] [address] [place] [address], [place] [address] Oct, [facility] [address] [id number] [address] [place] [address], [place] [address] Oct, [facility] [address] [id number] [address] [place] [address], [place] [address] Oct, [facility] [address] [id number] [address] [place] [address], [place] [address] Sep, [facility] [address] [id number] [address] [place] [address], [place] [address] Sep, [facility] [address] [id number] [address] [place] [address], [place] [address] 05 Sep, 2013 [facility] [address] [id number] [address] [place] [address], [place] [address] 05 Sep, 2013 [facility] [address] [id number] [address] [place] [address], [place] [address] Sep, [facility] [address] [id number] [address] [place] [address], [place] [address] Sep, [facility] [address] [id number] [address] [place] [address], [place] [address] Sep, [facility] [address] [id number] [address] [place] [address], [place] [address] Sep, [facility] [address] [id number] [address] [place] [address], [place] [address] Sep, [facility] [address] [id number] [address] [place] [address], [place] [address] Sep, [facility] [address] [id number] [address] [place] [address], [place] [address] Aug, [facility] [address] [id number] [address] [place] [address], [place] [address] Aug, [facility] [address] [id number] [address] [place] [address], [place] [address] Aug, [facility] [address] [id number] [address] [place] [address], [place] [address] Aug, [facility] [address] [id number] [address] [place] [address] [address] 23 Aug, 2013 [facility] [address] [id number] [address] [place] [address], [place] [address] 23 Aug, 2012 [facility] [address] [id number] [address] [place] [address], [place] [address] 23 Aug, 2013 [facility] [address] [id number] [address] [place] [address], [place] [address] 23 Aug, 2013 [facility] [address] [id number] [address] [place] [address], [place] [address] 22 Aug, 2012 [facility] [address] [id number] [address] [place] [address], [place] [address] 22 Aug, 2013 [facility] [address] [id number] [address] [place] [address], [place] [address] 18 Aug, 2013 [facility] [address] [id number] [address] [place] [address], [place] [address] 18 Aug, 2013 [facility] [address] [id number] [address] [place] [address], [place] [address] 18 Aug, 2013 [facility] [address] [id number] [address] [place] [address], [place] [address] 18 Aug, 2013 [facility] [address] [id number] [address] [place] [address] 17 Aug, 2013 [facility] [address] [id number] [address] [place] [address] 14 Aug, 2013 [facility] [address] [id number] [address] [place] [address] 14 Aug, 2013 [facility] [address] [id number] [address] [place] [address], [place] [address] Aug, [facility] [address] [id number] [address] [place] [address] 20 Jul, 2013 [facility] [address] [id number] [address] [place] [address] 19 Jul, 2013 [facility] [address] [id number] [address] [place] [address], [place] [address] 18 Jul, 2013 [facility] [address] [id number] [address] [place] [address], [place] [address] Jul, [facility] [address] [id number] [address] [place] [address], [place] [address] Jul, [facility] [address] [id number] [address] [place] [address], [place] [address] Jun, [facility] [address] [id number] [address] [place] [address], [place] [address] Jun, [facility] [address] [id number] [address] [place] [address], [place] [address] Jun, [facility] [address] [id number] [address] [place] [address], [place] [address] Jun, [facility] [address] [id number] [address] [place] [address], [place] [address] Jun, [facility] [address] [id number] [address] [place] [address], [place] [address] Jun, [facility] [address] [id number] [address] [place] [address], [place] [address] Jun, [facility] [address] [id number] [address] [place] [address], [place] [address] Jun, [facility] [address] [id number] [address] [place] [address], [place] [address] Jun, [facility] [address] [id number] [address] [place] [address], [place] [address] Jun, [facility] [address] [id number] [address] [place] [address], [place] [address] May, [facility] [address] [id number] [address] [place] [address], [place] [address] May, [facility] [address] [id number] [address] [place] [address], [place] [address] May, [facility] [address] [id number] [address] [place] [address], [place] [address] May, [facility] [address] [id number] [address] [place] [address], [place] [address] May, [facility] [address] [id number] [address] [place] [address], [place] [address] May, [facility] [address] [id number] [address] [place] [address], [place] [address] May, [facility] [address] [id number] [address] [place] [address], [place] [address] May, [facility] [address] [id number] [address] [place] [address], [place] [address] May, [facility] [address] [id number] [address] [place] [address], [place] [address] Apr, [facility] [address] [id number] [address] [place] [address], [place] [address] Apr, [facility] [address] [id number] [address] [place] [address], [place] [address] Apr, [facility] [address] [id number] [address] [place] [address], [place] [address] Apr, [facility] [address] [id number] [address] [place] [address], [place] [address] Apr, [facility] [address] [id number] [address] [place] [address], [place] [address] Apr, [facility] [address] [id number] [address] [place] [address], [place] [address] Apr, [facility] [address] [id number] [address] [place] [address], [place] [address] March, [facility] [address] [id number] [address] [place] [address], [place] [address] Feb, [facility] [address] [id number] [address] [place] [address], [place] [address] Feb, [facility] [address] [id number] [address] [place] [address], [place] [address] Feb, [facility] [address] [id number] [address] [place] [address], [place] [address] 28 Jan, 2013 [facility] [address] [id number] [address] [place] [address], [place] [address] 21 Jan, 2013 [facility] [address] [id number] [address] [place] [address], [place] [address] 19 Jan, 2013 [facility] [address] [id number] [address] [place] [address], [place] [address] 14 Jan, 2013 [facility] [address] [id number] [address] [place] [address], [place] [address] 12 Jan, 2013 [facility] [address] [id number] [address] [place] [address], [place] [address] 08 Jan, 2013 [facility] [address] [id number] [address] [place] [address], [place] [address] 07 Jan, 2013 [facility] [address] [id number] [address] [place] [address], [place] [address] 04 Jan, 2013 [facility] [address] [id number] [address] [place] [address], [place] [address] 28 Dec, 2012 [facility] [address] [id number] [address] [place] [address], [place] [address] 25 Dec, 2012 [facility] [address] [id number] [address] [place] [address], [place] [address] 13 Dec, 2012 [facility] [address] [id number] [address] [place] [address], [place] [address] 11 Dec, 2012 [facility] [address] [id number] [address] [place] [address], [place] [address] 07 Dec, 2012 [facility] [address] [id number] [address] [place] [address], [place] [address] 06 Dec, 2012 [facility] [address] [id number] [address] [place] [address], [place] [address] Dec, [facility] [address] [id number] [address] [place] [address], [place] [address] Nov, [facility] [address] [id number] [address] [place] [address], [place] [address] Nov, [facility] [address] [id number] [address] [place] [address], [place] [address] Nov, [facility] [address] [id number] [address] [place] [address], [place] [address] Nov, [facility] [address] [id number] [address] [place] [address], [place] [address] Nov, [facility] [address] [id number] [address] [place] [address], [place] [address] Nov, [facility] [address] [id number] [address] [place] [address], [place] [address] Nov, [facility] [address] [id number] [address] [place] [address], [place] [address] Oct, [facility] [address] [id number] [address] [place] [address], [place] [address] Oct, [facility] [address] [id number] [address] [place] [address], [place] [address] Oct, [facility] [address] [id number] [address] [place] [address], [place] [address] Oct, [facility] [address] [id number] [address] [place] [address], [place] [address] Oct, [facility] [address] [id number] [address] [place] [address], [place] [address] Oct, [facility] [address] [id number] [address] [place] [address], [place] [address] Oct, [facility] [address] [id number] [address] [address] Oct, [facility] [address] [id number] [address] [place] [address], [place] [address] Oct, [facility] [address] [id number] [address] [place] [address], [place] [address] Oct, [facility] [address] [id number] [address] [place] [address], [place] [address] Oct, [facility] [address] [id number] [address] [place] [address], [place] [address] Oct, [facility] [address] [id number] [address] [place] [address], [place] [address] Sep, [facility] [address] [id number] [address] [place] [address], [place] [address] Sep, [facility] [address] [id number] [address] [place] [address], [place] [address] Sep, [facility] [address] [id number] [address] [place] [address] Sep, [facility] [address] [id number] [address] [place] [address] Sep, [facility] [address] [id number] [address] [place] [address], [place] [address] Sep, [facility] [address] [id number] [address] [place] [address] Sep, [facility] [address] [id number] [address] [place] [address] Sep, [facility] [address] [id number] [address] [place] [address], [place] [address] Sep, [facility] [address] [id number] [address] [place] [address], [place] [address] Sep, [facility] [address] [id number] [address] [place] [address] Sep, [facility] [address] [id number] [address] [place] [address], [place] [address] Aug, [facility] [address] [id number] [address] [place] [address], [place] [address] Aug, [facility] [address] [id number] [address] [place] [address], [place] [address] Aug, [facility] [address] [id number] [address] [place] [address], [place] [address] Aug, [facility] [address] [id number] [address] [place] [address], [place] [address] Aug, [facility] [address] [id number] [address] [place] [address], [place] [address] Aug, [facility] [address] [id number] [address] [place] [address], [place] [address] Aug, [facility] [address] [id number] [address] [place] [address], [place] [address] Aug, [facility] [address] [id number] [address] [place] [address], [place] [address] Aug, [facility] [address] [id number] [address] [place] [address], [place] [address] Aug, [facility] [address] [id number] [address] [place] [address], [place] [address] Jul, [facility] [address] [id number] [address] [place] [address], [place] [address] 20 Jul, 2012 [facility] [address] [id number] [address] [place] [address], [place] [address] 10 Jul, 2012 [facility] [address] [id number] [address] [place] [address], [place] [address] 06 Jul, 2012 [facility] [address] [id number] [address] [place] [address], [place] [address] Jun, [facility] [address] [id number] [address] [place] [address], [place] [address] Jun, [facility] [address] [id number] [address] [place] [address], [place] [address] 16 Jun, 2012 [facility] [address] [id number] [address] [place] [address], [place] [address] Jun, [facility] [address] [id number] [address] [place] [address], [place] [address] Jun, [facility] [address] [id number] [address] [place] [address], [place] [address] Jun, [facility] [address] [id number] [address] [place] [address], [place] [address] Jun, [facility] [address] [id number] [address] [place] [address], [place] [address] May, [facility] [address] [id number] [address] [place] [address], [place] [address] May, [facility] [address] [id number] [address] [place] [address], [place] [address] May, [facility] [address] [id number] [address] [place] [address], [place] [address] May, [facility] [address] [id number] [address] [place] [address], [place] [address] May, [facility] [address] [id number] [address] [place] [address], [place] [address] Apr, [facility] [address] [id number] [address] [place] [address], [place] [address] Apr, [facility] [address] [id number] [address] [place] [address], [place] [address] Apr, [facility] [address] [id number] [address] [place] [address], [place] [address] Apr, [facility] [address] [id number] [address] [place] [address], [place] [address] Apr, [facility] [address] [id number] [address] [place] [address], [place] [address] March, [facility] [address] [id number] [address] [place] [address], [place] [address] March, [facility] [address] [id number] [address] [place] [address], [place] [address] March, [facility] [address] [id number] [address] [place] [address], [place] [address] March, [facility] [address] [id number] [address] [place] [address], [place] [address] March, [facility] [address] [id number] [address] [place] [address], [place] [address] March, [facility] [address] [id number] [address] [place] [address], [place] [address] March, [facility] [address] [id number] [address] [place] [address], [place] [address] March, [facility] [address] [id number] [address] [place] [address], [place] [address] March, [facility] [address] [id number] [address] [place] [address], [place] [address] March, [facility] [address] [id number] [address] [place] [address], [place] [address] 30 Feb, 2012 [facility] [address] [id number] [address] [place] [address], [place] [address] Feb, [facility] [address] [id number] [address] [place] [address], [place] [address] Feb, [facility] [address] [id number] [address] [place] [address], [place] [address] 19 Feb, 2012 [facility] [address] [id number] [address] [place] [address], [place] [address] 17 Feb, 2012 [facility] [address] [id number] [address] [place] [address], [place] [address] 17 Feb, 2012 [facility] [address] [id number] [address] [place] [address], [place] [address] Feb, [facility] [address] [id number] [address] [place] [address], [place] [address] Feb, [facility] [address] [id number] [address] [place] [address], [place] [address] Feb, [facility] [address] [id number] [address] [place] [address], [place] [address] 08 Jan, 2012 [facility] [address] [id number] [address] [place] [address], [place] [address] Jan, [facility] [address] [id number] [address] [place] [address], [place] [address] 05 Jan, 2012 [facility] [address] [id number] [address] [place] [address], [place] [address] Jan, [facility] [address] [id number] [address] [place] [address], [place] [address] Dec, [facility] [address] [id number] [address] [place] [address], [place] [address] Dec, [facility] [address] [id number] [address] [place] [address], [place] [address] Nov, [facility] [address] [id number] [address] [place] [address], [place] [address] Nov, [facility] [address] [id number] [address] [place] [address], [place] [address] Nov, [facility] [address] [id number] [address] [place] [address], [place] [address] 16 Nov, 2011 [facility] [address] [id number] [address] [place] [address], [place] [address] Nov, [facility] [address] [id number] [address] [place] [address], [place] [address] 30 Oct, 2011 [facility] [address] [id number] [address] [place] [address], [place] [address] Oct, [facility] [address] [id number] [address] [place] [phone] Oct, [facility] [address] [id number] [address] [place] [address] Oct, [facility] [address] [id number] [address] [place] [address] Oct, [facility] [address] [id number] [address] [place] [phone] Oct, [facility] [address] [id number] [address] [place] [phone] Oct, [facility] [address] [id number] [address] [place] [phone] Oct, [facility] [address] [id number] [address] [place] [phone] Sep, IMMUNIZATIONS No Known Immunizations SOCIAL HISTORY Never Assessed REASON FOR VISIT PLAN OF CARE VITAL SIGNS Height 62 in 2012-05-05 Weight 171 lbs 2012-05-05 Heart Rate 100 bpm 2012-05-05 Respiratory Rate 22 2012-05-05 Blood pressure systolic 160 mmHg 2012-05-05 Blood pressure diastolic 80 mmHg 2012-05-05 MEDICATIONS Unknown Medications RESULTS No Results PROCEDURES [...] Hospitalization History [facility], [place]- Urosepsis, ab d pain and fever, discharged 11/27/2017 11/26/2017 Hospitalization History [facility] [place]- Went Unrepsonsive, Hit head 2017 Hospitalization History [facility] [place]- Back Pain 8
--- OUTSIDE RECORDS SUMMARY | 2020-06-18 14:39 | XMS REPORT ---
Author Author Sanjuanita Sanchez [facility] Address [address] [place] [address] Care Team Providers Care Title Inspector Name Role Phone MARIA DE JESUS Sanchez Unavailable PROBLEMS Type Condition ICD9-CM Code [id number] Code Onset Dates Condition S tatus SNOMED Code Problem Hypertension I10 Active 2695376 3 Problem Hyperlipidemia E78.5 Active 45355 004 Problem Coronary artery disease I25.10 Active 57243771 Problem Low back pain M54.5 Active 194852 009 Problem Other chronic pain G89.29 Active 8 2638715 Problem Ventral hernia without obstruction or gangrene K43 .9 Active 377033149 Problem Type 2 diabetes mellitus wit hout complication, without long-term current use of insulin E11.9 Active 469100167 Problem Anxiety F41.9 Active 07695693 Problem Peripheral vascular disease I73.9 Ac tive 624220954 Problem Insomnia G47.00 Active 227027067 Problem Microcytic anemia D50.9 Active 23 3856791 Problem Pharyngeal dysphagia R13.13 Active 87563048085925 Problem Other iron deficiency anemia D50.8 A ctive 32152965 Problem Reactive depression F32.9 Active 38161166 Problem Paroxysmal atrial fibrillation I48.0 Active 584314540 Problem 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 Active 32274304 Problem Encounter for suprapubic catheter care Z43.5 Active 135012166 Problem Neurogenic bladder N31.9 Active 3 67322973 ALLERGIES No Information ENCOUNTERS Encounter Location Date Diagnosis [facility] [address] [facility] [id number] [address] [place] [id number] Feb, Anxiety F41.9 and Strain of right shoulder, subsequent encounter S46.911D [facility] [address] [facility] [id number] [address] [place] [address] Jan, Anxiety F41.9 and Strain of right shoulder, subsequent encounter S46.911D [facility] [address] [id number] [address] [place] [phone] Jan, [facility] [employer] [address] [place] [id number] Jan, Neurogenic bladder N31.9 [facility] [address] [id number] [address] [place] [address] Dec, [place] [address] [id number] [address] [place] [phone] Dec, [place] [address] [id number] [address] [place] [phone] Dec, Anxiety F41.9 and Strain of right shoulder, subsequent encounter S46.911D [place] [address] [id number] [address] [place] [address] 10 Dec, 2019 Other iron deficiency anemia D50.8 [place] [address] [id number] [address] [place] [phone] 04 Dec, 2019 [facility] [employer] [address] [place] [id number] Dec, Encounter for suprapubic catheter care Z 43.5 and Microcytic anemia D50.9 [place] [address] [id number] [address] [place] [address] Dec, [place] [address] [id number] [address] [place] [address] Nov, Anxiety F41.9 and Strain of right shoulder, subsequent encounter S46.911D [place] [address] [id number] [address] [place] [address] Nov, Hypertension I10 Via [facility] [address] [place] [id number] Nov, Pneumonia of both lungs due to infectiou s organism, unspecified part of lung J18.9 and Suprapubic catheter Z93.59 [place] [address] [id number] [address] [place] [id number] Nov, Hypertension I10 and Reactiv e depression F32.9 [facility] [address] [id number] [address] [place] [id number] Oct, Strain of right shoulder, scherer bsequent encounter S46.911D and Anxiety F41.9 [facility] [address] [id number] [address] [place] [phone] Oct, Via [facility] [address] [place] [id number] Oct, Suprapubic catheter Z93.59 and Candidias is, intertriginous B37.2 [facility] [address] [id number] [address] [place] [phone] Oct, Suprapubic catheter Z93.59 [facility] [address] [id number] [address] [place] [id number] Oct, Anxiety F41.9 and Strain of right shoulder, subsequent encounter S46.911D [facility] [address] [id number] [address] [place] [id number] Sep, [facility] [address] [id number] [address] [place] [id number] Sep, [facility] [address] [id number] [address] [place] [id number] Sep, Via [facility] [employer] [address] [place] [id number] Sep, Suprapubic catheter Z93.59 [facility] [address] [id number] [address] [place] [address] Sep, Anxiety F41.9 and Strain of right shoulder, subsequent encounter S46.911D [facility] [address] [id number] [address] [place] [phone] Aug, [facility] [address] [id number] [address] [place] [address] Aug, [facility] [address] [id number] [address] [place] [address] Aug, Anxiety F41.9 and Strain of right shoulder, subsequent encounter S46.911D [facility] [address] [place] [id number] Aug, Suprapubic catheter Z93.59 [facility] [address] [id number] [address] [place] [id number] Jul, Strain of right shoulder, scherer bsequent encounter S46.911D and Anxiety F41.9 [facility] [address] [id number] [address] [place] [id number] Jul, Anxiety F41.9 [facility] [address] [id number] [address] [place] [address] Jun, [facility] [address] [id number] [address] [place] [phone] Jun, [facility] [address] [id number] [address] [place] [address] Jun, [facility] [address] [id number] [address] [place] [phone] Jun, Strain of right shoulder, scherer bsequent encounter S46.911D [facility] [address] [id number] [address] [place] [address] Jun, Strain of right shoulder, scherer bsequent encounter S46.911D [facility] [address] [id number] [address] [place] [address] Jun, Anxiety F41.9 [facility] [employer] [address] [place] [id number] Jun, Neurogenic bladder N31.9 and Anxiety F41 .9 [facility] [address] [place] [id number] May, Anxiety F41.9 [facility] [address] [id number] [address] [place] [phone] May, Dysuria R30.0 [place] [address] [id number] [address] [place] [address] May, Strain of right shoulder, scherer bsequent encounter S46.911D and Anxiety F41.9 [place] [address] [id number] [address] [place] [phone] Apr, Via [facility] [employer] [address] [place] [id number] 18 Apr, 2019 Strain of right shoulder, subsequent enc ounter S46.911D [place] [address] [id number] [address] [place] [address] 14 Apr, 2019 Strain of right shoulder, scherer bsequent encounter S46.911D and Anxiety F41.9 [facility] [employer] [address] [place] [id number] 13 Apr, 2019 Type 2 diabetes mellitus without complic ation, without long-term current use of insulin E11.9 and Neurogenic bladder N31.9 [facility] [employer] [address] [place] [id number] 11 Apr, 2019 Strain of right shoulder, subsequent enc ounter S46.911D ; History of GI bleed Z87.19 ; Neurogenic bladder N31.9 and Reactive depression F32.9 [place] [address] [id number] [address] [place] [address] 10 Apr, 2019 Acute pain of left shoulder M25.512 [place] [address] [id number] [address] [place] [phone] 07 Apr, 2019 [place] [address] [id number] [address] [place] [address] Apr, Anxiety F41.9 and Other sports physician 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 [facility] [employer] [address] [place] [id number] March, Gastrointestinal hemorrhage associated w ith acute gastritis K29.01 [place] [address] [id number] [address] [place] [phone] March, [facility] [employer] [address] [place] [id number] March, Bronchitis J40 [facility] [address] [id number] [address] [place] [address] March, Cough R05 [facility] [address] [id number] [address] [place] [id number] March, Other chronic pain G89.29 [facility] [address] [id number] [address] [place] [id number] March, Anxiety F41.9 [facility] [address] [id number] [address] [place] [id number] March, [facility] [address] [id number] [address] [place] [address] Feb, Other chronic pain G89.29 [facility] [address] [id number] [address] [place] [phone] Feb, Anxiety F41.9 [facility] [address] [id number] [address] [place] [address] Feb, Other chronic pain G89.29 [facility] [employer] [address] [place] [id number] Feb, Neurogenic bladder N31.9 and Suprapubic catheter Z93.59 [facility] [address] [id number] [address] [place] [address] Jan, Anxiety F41.9 [facility] [address] [id number] [address] [place] [id number] Dec, Anxiety F41.9 [facility] [address] [id number] [address] [place] [address] Dec, Other chronic pain G89.29 an d Anxiety F41.9 [facility] [address] [id number] [address] [place] [phone] Dec, Via [employer] [address] [place] [id number] Dec, Neurogenic bladder N31.9 and Suprapubic catheter Z93.59 [facility] [address] [id number] [address] [place] [address] Nov, Other chronic pain G89.29 an d Anxiety F41.9 [facility] [address] [id number] [address] [place] [phone] Nov, [facility] [employer] [address] [place] [id number] Nov, Suprapubic catheter Z93.59 [facility] [address] [id number] [address] [place] [phone] Oct, Other chronic pain G89.29 an d Anxiety F41.9 [facility] [address] [id number] [address] [place] [address] Oct, [facility] [address] [id number] [address] [place] [id number] Oct, Suprapubic catheter Z93.59 [facility] [address] [id number] [address] [place] [id number] Oct, [facility] [employer] [address] [place] [id number] Oct, [facility] [address] [id number] [address] [place] [id number] Oct, Anxiety F41.9 [facility] [address] [id number] [address] [place] [id number] Oct, Anxiety F41.9 [facility] [employer] [address] [place] [id number] Oct, Other chronic pain G89.29 [facility] [address] [id number] [address] [place] [address] Sep, Other chronic pain G89.29 [facility] [employer] [address] [place] [id number] Sep, Suprapubic catheter Z93.59 and Cervicalg ia M54.2 [facility] [address] [id number] [address] [place] [phone] Sep, [facility] [address] [id number] [address] [place] [id number] Sep, [facility] [address] [id number] [address] [place] [id number] Sep, [facility] [employer] [address] [place] [id number] Aug, Cystitis N30.90 [facility] [address] [id number] [address] [place] [address] Aug, [facility] [address] [id number] [address] [place] [address] Aug, Other chronic pain G89.29 [facility] [address] [id number] [address] [place] [id number] Aug, [facility] [employer] [address] [place] [id number] Aug, Encounter for suprapubic catheter care Z 43.5 [facility] [address] [id number] [address] [place] [phone] Jul, [facility] [employer] [address] [place] [id number] Jul, [facility] [address] [id number] [address] [place] [id number] Jul, Other chronic pain G89.29 [facility] [address] [id number] [address] [place] [phone] Jul, [facility] [address] [id number] [address] [place] [address] Jul, [facility] [employer] [address] [place] [id number] Jun, 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 [facility] [address] [id number] [address] [place] [address] Jun, Other chronic pain G89.29 [facility] [address] [id number] [address] [place] [address] Jun, [facility] [employer] [address] [place] [id number] May, Anxiety F41.9 ; Type 2 diabetes mellitus without complication, without long-term current use of insulin E11.9 ; Hypertension I10 ; Low back pain M54.5 ; Paroxysmal atrial fibrillation I48.0 and 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 [facility] [address] [id number] [address] [place] [address] May, Other chronic pain G89.29 [facility] [employer] [address] [place] [id number] May, Low back pain M54.5 [facility] [address] [id number] [address] [place] [address] May, [facility] [address] [id number] [address] [place] [address] Apr, Other chronic pain G89.29 [facility] [address] [id number] [address] [place] [address] Apr, [facility] [address] [id number] [address] [place] [address] Apr, [facility] [employer] [address] [place] [id number] Apr, Closed compression fracture of L3 lumbar vertebra with routine healing, subsequent encounter S32.030D [facility] [employer] [address] [place] [id number] Apr, Low back pain M54.5 [facility] [employer] [address] [place] [id number] Apr, Coccydynia M53.3 [facility] [address] [id number] [address] [place] [address] March, [facility] [address] [facility] [id number] [address] [place] [address] March, Other chronic pain G89.29 [facility] [address] [facility] [id number] [address] [place] [address] March, [facility] [address] [facility] [id number] [address] [place] [address] March, [facility] [address] [facility] [id number] [address] [place] [address] Feb, [facility] [address] [id number] [address] [place] [phone] Feb, Other chronic pain G89.29 [facility] [employer] [address] [place] [id number] Feb, Other chronic pain G89.29 and Anxiety F4 1.9 [facility] [address] [facility] [id number] [address] [place] [address] Feb, [facility] [address] [facility] [id number] [address] [place] [phone] Jan, [facility] [address] [facility] [id number] [address] [place] [phone] Jan, [facility] [address] [facility] [id number] [address] [place] [phone] Jan, [facility] [address] [facility] [id number] [address] [place] [phone] Jan, [facility] [address] [facility] [id number] [address] [place] [address] Dec, [facility] [employer] [address] [place] [id number] Dec, Peripheral vascular disease I73.9 ; 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 ; Other chronic pain G89.29 ; Anxiety F41.9 ; Reactive depression F32.9 ; Insomnia G47.00 and Type 2 diabetes mellitus without complication, without long-term current use of insulin E11.[address] [facility] [address] [id number] [place] [address] Nov, [facility] [address] [id number] [place] [id number] Nov, Anxiety F41.9 [facility] [address] [facility] [id number] [address] [place] [phone] Nov, [facility] [address] [id number] [place] [id number] Nov, Anxiety F41.9 [facility] [employer] [address] [place] [id number] Nov, Status post surgery Z98.890 ; Confused R 41.0 ; Anxiety F41.9 and Other chronic pain G89.29 [facility] [address] [id number] [place] [id number] Nov, Other chronic pain G89.29 [facility] [address] [facility] [id number] [address] [place] [address] Oct, [facility] [address] [id number] [place] [id number] Oct, Other chronic pain G89.29 [facility] [address] [facility] [id number] [address] [place] [address] Oct, Anxiety F41.9 [facility] [address] [id number] [place] [id number] Sep, Other chronic pain G89.29 [facility] [address] [id number] [place] [id number] Sep, [facility] [employer] [address] [place] [id number] Aug, Dysuria R30.0 and Anxiety F41.9 [facility] [address] [id number] [address] [place] [phone] Aug, [facility] [address] [id number] [place] [id number] Aug, Other chronic pain G89.29 [facility] [address] [id number] [address] [place] [address] Jul, Other chronic pain G89.29 [facility] [address] [id number] [place] [id number] Jun, [facility] [address] [id number] [place] [id number] Jun, Other chronic pain G89.29 [facility] [address] [id number] [address] [place] [phone] Jun, [facility] [address] [id number] [address] [place] [address] May, Other chronic pain G89.29 [facility] [address] [id number] [address] [place] [phone] Apr, Other chronic pain G89.29 [facility] [employer] [address] [place] [id number] Apr, Reactive depression F32.9 and Pharyngeal dysphagia R13.13 [facility] [address] [id number] [address] [place] [phone] Apr, Urinary tract infection with out hematuria, site unspecified N39.0 [facility] [address] [id number] [address] [place] [phone] March, Other chronic pain G89.29 [facility] [address] [id number] [address] [place] [address] Feb, Other chronic pain G89.29 [facility] [address] [id number] [address] [place] [phone] Feb, [facility] [address] [id number] [place] [id number] Feb, [facility] [employer] [address] [place] [id number] Feb, Dysuria R30.0 and Ventral hernia without obstruction or gangrene K43.9 [facility] [address] [id number] [address] [place] [address] Jan, Other chronic pain G89.29 [facility] [address] [id number] [id number] Dec, Other chronic pain G89.29 [facility] [address] [id number] [address] [place] [phone] Nov, Other chronic pain G89.29 [facility] [employer] [address] [place] [id number] Nov, Lymphadenitis I88.9 [facility] [address] [id number] [address] [place] [phone] Nov, Other chronic pain G89.29 [facility] [address] [facility] [id number] [address] [place] [id number] Nov, [facility] [id number] [place] [id number] Nov, Other chronic pain G89.29 [facility] [employer] [address] [place] [id number] Oct, Low back pain M54.5 ; Hypertension I10 a nd Type 2 diabetes mellitus without complication, without long-term current use of insulin E11.9 [facility] [address] [id number] [address] [place] [id number] Oct, [facility] [address] [id number] [address] [place] [phone] Oct, [facility] [address] [id number] [address] [place] [phone] Oct, [facility] [address] [id number] [address] [place] [id number] Oct, [facility] [address] [id number] [address] [place] [phone] Sep, [facility] [address] [id number] [address] [place] [id number] Sep, [facility] [address] [id number] [address] [place] [id number] Aug, Other chronic pain G89.29 [facility] [address] [id number] [address] [place] [id number] Jul, [facility] [address] [id number] [address] [place] [phone] Jul, [facility] [address] [id number] [address] [place] [phone] Jul, [facility] [address] [id number] [address] [place] [address] Jun, [facility] [address] [id number] [address] [place] [address] Jun, [facility] [address] [place] [id number] Jun, Low back pain M54.5 ; Other chronic pain G89.29 and Coronary artery disease I25.10 [facility] [address] [id number] [address] [place] [address] Jun, [facility] [address] [id number] [address] [place] [address] May, [facility] [address] [id number] [address] [place] [address] May, [facility] [address] [id number] [address] [place] [address] May, Other chronic pain G89.29 [facility] [address] [id number] [address] [place] [address] May, [facility] [address] [id number] [address] [place] [address] Apr, [facility] [address] [id number] [address] [place] [address] Apr, Acute cystitis without hemat uria N30.00 [facility] [address] [id number] [address] [place] [id number] 16 Apr, 2016 Acute cystitis without hemat uria N30.00 ; Coronary artery disease I25.10 ; Low back pain M54.5 and Other chronic pain G89.29 [facility] [address] [id number] [address] [place] [address] 13 Apr, 2016 Other chronic pain G89.29 [facility] [address] [id number] [address] [place] [address] March, Other chronic pain G89.29 [facility] [address] [id number] [address] [place] [id number] 18 Feb, 2016 [facility] [address] [id number] [address] [place] [address] Feb, Arthritis M19.90 [facility] [address] [id number] [address] [place] [phone] Feb, [facility] [address] [id number] [address] [place] [address] Jan, [facility] [address] [id number] [address] [place] [address] Jan, [facility] [address] [id number] [address] [place] [address] Jan, Other chronic pain G89.29 [facility] [address] [id number] [address] [place] [address] Jan, Hypertension I10 ; Coronary artery disease I25.10 and Insomnia G47.00 [facility] [address] [id number] [address] [place] [address] Jan, [facility] [address] [id number] [address] [place] [address] 29 Dec, 2015 Right hip pain M25.551 [facility] [address] [id number] [address] [place] [phone] Dec, [facility] [address] [id number] [address] [place] [address] Dec, [facility] [address] [id number] [address] [place] [address] Dec, [facility] [address] [id number] [address] [place] [address] Dec, Other chronic pain G89.29 [facility] [address] [id number] [address] [place] [phone] Dec, [facility] [address] [id number] [address] [place] [address] Nov, [facility] [address] [id number] [address] [place] [address] Nov, Other chronic pain G89.29 [facility] [address] [id number] [address] [place] [address] Nov, Right hip pain M25.551 and C oronary artery disease I25.10 [facility] [address] [id number] [address] [place] [address] Nov, Other chronic pain G89.29 [facility] [address] [id number] [address] [place] [address] Oct, [facility] [address] [id number] [address] [place] [address] Oct, [facility] [address] [id number] [address] [place] [phone] Sep, [facility] [address] [id number] [address] [place] [address] Sep, [facility] [address] [id number] [address] [place] [address] Aug, [facility] [address] [id number] [address] [place] [address] Aug, Hypertension I10 ; Coronary artery disease I25.10 and Arthritis M19.90 [facility] [address] [id number] [address] [place] [address], [place] [address] Jun, [facility] [address] [id number] [address] [place] [address] Jun, Essential hypertension, jayson gn 401.1 ; Other chronic pain 338.29 and Chronic airway obstruction, not elsewhere classified 496 [facility] [address] [id number] [address] [place] [address] Jun, [facility] [address] [id number] [address] [place] [address], [place] [address] Jun, [facility] [address] [id number] [address] [place] [phone] Jun, [facility] [address] [id number] [address] [place] [phone] May, [facility] [address] [id number] [address] [place] [address] May, [facility] [address] [id number] [address] [place] [phone] Apr, [facility] [address] [id number] [address] [place] [address] Apr, [facility] [address] [id number] [address] [place] [phone] Apr, [facility] [address] [id number] [address] [place] [phone] March, [facility] [address] [id number] [address] [place] [address] March, [facility] [address] [id number] [address] [place] [address] March, [facility] [address] [id number] [address] [place] [address] March, [facility] [address] [id number] [address] [place] [address], [place] [address] March, Sialadenitis 527.2 [facility] [address] [id number] [address] [place] [address], [place] [address] Feb, [facility] [address] [id number] [address] [place] [address], [place] [address] Feb, [facility] [address] [id number] [address] [place] [address], [place] [address] Feb, [facility] [address] [id number] [address] [place] [address], [place] [address] Feb, [facility] [address] [id number] [address] [place] [address], [place] [address] Feb, [facility] [address] [id number] [address] [place] [address], [place] [address] Jan, [facility] [address] [id number] [address] [place] [address], [place] [address] Jan, [facility] [address] [id number] [address] [place] [address], [place] [address] Jan, [facility] [address] [id number] [address] [place] [address], [place] [address] Jan, [facility] [address] [id number] [address] [place] [address], [place] [address] Jan, [facility] [address] [id number] [address] [place] [address], [place] [address] Jan, [facility] [address] [id number] [address] [place] [address], [place] [address] Dec, [facility] [address] [id number] [address] [place] [address], [place] [address] Dec, [facility] [address] [id number] [address] [place] [address], [place] [address] Dec, [facility] [address] [id number] [address] [place] [phone] Dec, [facility] [address] [id number] [address] [place] [address], [place] [address] Dec, [facility] [address] [id number] [address] [place] [address] Dec, [facility] [address] [id number] [address] [place] [address], [place] [address] Nov, [facility] [address] [id number] [address] [place] [address], [place] [address] Nov, [facility] [address] [id number] [address] [place] [address], [place] [address] Nov, [facility] [address] [id number] [address] [place] [address], [place] [address] Nov, [facility] [address] [id number] [address] [place] [phone] Nov, [facility] [address] [id number] [address] [place] [address], [place] [address] Nov, [facility] [address] [id number] [address] [place] [phone] Nov, [facility] [address] [id number] [address] [place] [address] Nov, [facility] [address] [id number] [address] [place] [address] Nov, [facility] [address] [id number] [address] [place] [phone] Nov, [facility] [address] [id number] [address] [place] [address] Nov, [facility] [address] [id number] [address] [place] [address] Nov, [facility] [address] [id number] [address] [place] [address] Nov, [facility] [address] [id number] [address] [place] [address], [place] [address] Nov, [facility] [address] [id number] [address] [place] [address], [place] [address] Oct, [facility] [address] [id number] [address] [place] [address], [place] [address] Oct, [facility] [address] [id number] [address] [place] [address], [place] [address] Oct, [facility] [address] [id number] [address] [place] [address], [place] [address] Oct, [facility] [address] [id number] [address] [place] [address], [place] [address] Oct, [facility] [address] [id number] [address] [place] [address], [place] [address] Oct, [facility] [address] [id number] [address] [place] [address], [place] [address] Oct, [facility] [address] [id number] [address] [place] [address], [place] [address] Oct, [facility] [address] [id number] [address] [place] [address], [place] [address] Oct, [facility] [address] [id number] [address] [place] [address], [place] [address] Sep, [facility] [address] [id number] [address] [place] [address], [place] [address] Sep, [facility] [address] [id number] [address] [place] [address], [place] [address] Sep, [facility] [address] [id number] [address] [place] [address], [place] [address] Sep, [facility] [address] [id number] [address] [place] [address], [place] [address] Sep, [facility] [address] [id number] [address] [place] [address], [place] [address] Sep, [facility] [address] [id number] [address] [place] [address], [place] [address] Sep, [facility] [address] [id number] [address] [place] [address], [place] [address] Sep, [facility] [address] [id number] [address] [place] [address], [place] [address] Sep, [facility] [address] [id number] [address] [place] [address], [place] [address] Sep, [facility] [address] [id number] [address] [place] [address], [place] [address] Sep, [facility] [address] [id number] [address] [place] [address], [place] [address] Sep, [facility] [address] [id number] [address] [place] [address], [place] [address] Aug, [facility] [address] [id number] [address] [place] [address], [place] [address] Aug, [facility] [address] [id number] [address] [place] [address], [place] [address] Aug, [facility] [address] [id number] [address] [place] [address], [place] [address] Aug, [facility] [address] [id number] [address] [place] [address], [place] [address] Aug, [facility] [address] [id number] [address] [place] [address] Aug, [facility] [address] [id number] [address] [place] [address], [place] [address] Aug, [facility] [address] [id number] [address] [place] [address], [place] [address] Aug, [facility] [address] [id number] [address] [place] [address], [place] [address] 30 Jul, 2014 [facility] [address] [id number] [facility] [place] [address] 30 Jul, 2013 [facility] [address] [id number] [address] [place] [address], [place] [address] 30 Jul, 2013 [facility] [address] [id number] [facility] [place] [address] 30 Jul, 2013 [facility] [address] [id number] [address] [place] [address], [place] [address] 25 Jul, 2013 [facility] [address] [id number] [address] [place] [address], [place] [address] 25 Jul, 2013 [facility] [address] [id number] [address] [place] [address], [place] [address] 15 Jul, 2013 [facility] [address] [id number] [address] [place] [address], [place] [address] 15 Jul, 2013 [facility] [address] [id number] [address] [place] [address], [place] [address] 11 Jul, 2013 [facility] [address] [id number] [address] [place] [address], [place] [address] Jul, 2013 [facility] [address] [id number] [address] [place] [address], [place] [address] Jun, [facility] [address] [id number] [address] [place] [address], [place] [address] Jun, [facility] [address] [id number] [address] [place] [address], [place] [address] Jun, [facility] [address] [id number] [address] [place] [address], [place] [address] Jun, [facility] [address] [id number] [address] [place] [address], [place] [address] Jun, [facility] [address] [id number] [address] [place] [address], [place] [address] Jun, [facility] [address] [id number] [address] [place] [address], [place] [address] Jun, [facility] [address] [id number] [facility] [place] [address] Jun, [facility] [address] [id number] [facility] [place] [address] Jun, [facility] [address] [id number] [facility] [place] [address] Jun, [facility] [address] [id number] [address] [place] [address], [place] [address] Jun, [facility] [address] [id number] [address] [place] [address], [place] [address] Jun, [facility] [address] [id number] [address] [place] [address], [place] [address] Jun, [facility] [address] [id number] [address] [place] [address], [place] [address] Jun, [facility] [address] [id number] [address] [place] [address], [place] [address] Jun, [facility] [address] [id number] [address] [place] [address], [place] [address] Jun, [facility] [address] [id number] [address] [place] [address], [place] [address] Jun, [facility] [address] [id number] [address] [place] [address], [place] [address] Jun, [facility] [address] [id number] [address] [place] [address], [place] [address] Jun, [facility] [address] [id number] [address] [place] [address], [place] [address] Jun, [facility] [address] [id number] [address] [place] [address], [place] [address] Jun, [facility] [address] [id number] [address] [place] [address], [place] [address] Jun, [facility] [address] [id number] [address] [place] [address], [place] [address] May, [facility] [address] [id number] [facility] [place] [address] May, [facility] [address] [id number] [address] [place] [address], [place] [address] May, [facility] [address] [id number] [address] [place] [address], [place] [address] May, [facility] [address] [id number] [address] [place] [address], [place] [address] May, [facility] [address] [id number] [address] [place] [address], [place] [address] May, [facility] [address] [id number] [address] [place] [address], [place] [address] May, [facility] [address] [id number] [address] [place] [address], [place] [address] May, [facility] [address] [id number] [address] [place] [address], [place] [address] May, [facility] [address] [id number] [address] [place] [address], [place] [address] May, [facility] [address] [id number] [address] [place] [address], [place] [address] May, [facility] [address] [id number] [address] [place] [address], [place] [address] May, [facility] [address] [id number] [address] [place] [address], [place] [address] May, [facility] [address] [id number] [address] [place] [address], [place] [address] Apr, [facility] [address] [id number] [address] [place] [address], [place] [address] Apr, [facility] [address] [id number] [address] [place] [address], [place] [address] Apr, [facility] [address] [id number] [address] [place] [address] Apr, [facility] [address] [id number] [address] [place] [address] Apr, [facility] [address] [id number] [address] [place] [address] Apr, [facility] [address] [id number] [address] [place] [address] Apr, [facility] [address] [id number] [address] [place] [address] Apr, [facility] [address] [id number] [address] [place] [address], [place] [address] Apr, [facility] [address] [id number] [address] [place] [address], [place] [address] March, [facility] [address] [id number] [address] [place] [address], [place] [address] March, [facility] [address] [id number] [address] [place] [address], [place] [address] March, [facility] [address] [id number] [address] [place] [address], [place] [address] March, [facility] [address] [id number] [address] [place] [address], [place] [address] March, [facility] [address] [id number] [address] [place] [address], [place] [address] March, [facility] [address] [id number] [address] [place] [address], [place] [address] March, [facility] [address] [id number] [address] [place] [address], [place] [address] March, [facility] [address] [id number] [address] [place] [address], [place] [address] March, [facility] [address] [id number] [address] [place] [address], [place] [address] March, [facility] [address] [id number] [address] [place] [address], [place] [address] March, [facility] [address] [id number] [address] [place] [address], [place] [address] March, [facility] [address] [id number] [address] [place] [address], [place] [address] March, [facility] [address] [id number] [address] [place] [address], [place] [address] March, [facility] [address] [id number] [address] [place] [address], [place] [address] March, [facility] [address] [id number] [address] [place] [address], [place] [address] March, [facility] [address] [id number] [address] [place] [address], [place] [address] March, [facility] [address] [id number] [address] [place] [address], [place] [address] March, [facility] [address] [id number] [address] [place] [address], [place] [address] March, [facility] [address] [id number] [address] [place] [address], [place] [address] March, [facility] [address] [id number] [address] [place] [address], [place] [address] Feb, [facility] [address] [id number] [address] [place] [address], [place] [address] Feb, [facility] [address] [id number] [address] [place] [address], [place] [address] Feb, [facility] [address] [id number] [address] [place] [address], [place] [address] Feb, [facility] [address] [id number] [address] [place] [address], [place] [address] Feb, [facility] [address] [id number] [address] [place] [address], [place] [address] 17 Feb, 2014 [facility] [address] [id number] [address] [place] [address] Feb, [facility] [address] [id number] [address] [place] [address], [place] [address] Feb, [facility] [address] [id number] [address] [place] [address], [place] [address] Jan, [facility] [address] [id number] [address] [place] [address], [place] [address] Jan, [facility] [address] [id number] [address] [place] [address], [place] [address] Jan, [facility] [address] [id number] [address] [place] [address], [place] [address] Jan, [facility] [address] [id number] [address] [place] [address], [place] [address] Jan, [facility] [address] [id number] [address] [place] [address], [place] [address] Jan, [facility] [address] [id number] [address] [place] [address], [place] [address] Jan, [facility] [address] [id number] [address] [place] [address], [place] [address] Jan, [facility] [address] [id number] [address] [place] [address], [place] [address] Jan, [facility] [address] [id number] [address] [place] [address], [place] [address] Jan, [facility] [address] [id number] [address] [place] [address], [place] [address] Dec, [facility] [address] [id number] [address] [place] [address], [place] [address] Dec, [facility] [address] [id number] [address] [place] [address], [place] [address] Dec, [facility] [address] [id number] [address] [place] [address], [place] [address] 2013 [facility] [address] [id number] [address] [place] [address], [place] [address] 2013 [facility] [address] [id number] [address] [place] [address], [place] [address] Dec, [facility] [address] [id number] [address] [place] [address], [place] [address] Dec, [facility] [address] [id number] [address] [place] [address], [place] [address] Dec, [facility] [address] [id number] [address] [place] [address], [place] [address] Nov, [facility] [address] [id number] [address] [place] [address], [place] [address] Nov, [facility] [address] [id number] [address] [place] [address], [place] [address] Nov, [facility] [address] [id number] [address] [place] [address], [place] [address] Nov, [facility] [address] [id number] [address] [place] [address], [place] [address] Nov, [facility] [address] [id number] [address] [place] [address], [place] [address] Nov, [facility] [address] [id number] [address] [place] [address], [place] [address] Nov, [facility] [address] [id number] [address] [place] [address], [place] [address] Nov, [facility] [address] [id number] [address] [place] [address], [place] [address] Nov, [facility] [address] [id number] [address] [place] [address], [place] [address] Nov, [facility] [address] [id number] [address] [place] [address], [place] [address] Nov, [facility] [address] [id number] [address] [place] [address], [place] [address] Nov, [facility] [address] [id number] [address] [place] [address], [place] [address] Nov, [facility] [address] [id number] [address] [place] [address], [place] [address] Oct, [facility] [address] [id number] [address] [place] [address], [place] [address] Oct, [facility] [address] [id number] [address] [place] [address], [place] [address] Oct, [facility] [address] [id number] [address] [place] [address], [place] [address] Oct, [facility] [address] [id number] [address] [place] [address], [place] [address] Oct, [facility] [address] [id number] [address] [place] [address], [place] [address] Oct, [facility] [address] [id number] [address] [place] [address], [place] [address] Oct, [facility] [address] [id number] [address] [place] [address], [place] [address] Oct, [facility] [address] [id number] [address] [place] [address], [place] [address] Oct, [facility] [address] [id number] [address] [place] [address], [place] [address] Oct, [facility] [address] [id number] [address] [place] [address], [place] [address] Oct, [facility] [address] [id number] [address] [place] [address], [place] [address] Oct, [facility] [address] [id number] [address] [place] [address], [place] [address] Oct, [facility] [address] [id number] [address] [place] [address], [place] [address] Oct, [facility] [address] [id number] [address] [place] [address], [place] [address] Sep, [facility] [address] [id number] [address] [place] [address], [place] [address] Sep, [facility] [address] [id number] [address] [place] [address], [place] [address] 05 Sep, 2013 [facility] [address] [id number] [address] [place] [address], [place] [address] 05 Sep, 2013 [facility] [address] [id number] [address] [place] [address], [place] [address] Sep, [facility] [address] [id number] [address] [place] [address], [place] [address] Sep, [facility] [address] [id number] [address] [place] [address], [place] [address] Sep, [facility] [address] [id number] [address] [place] [address], [place] [address] Sep, [facility] [address] [id number] [address] [place] [address], [place] [address] Sep, [facility] [address] [id number] [address] [place] [address], [place] [address] Sep, [facility] [address] [id number] [address] [place] [address], [place] [address] Aug, [facility] [address] [id number] [address] [place] [address], [place] [address] Aug, [facility] [address] [id number] [address] [place] [address], [place] [address] Aug, [facility] [address] [id number] [address] [place] [address], [place] [address] Aug, [facility] [address] [id number] [address] [place] [address] [address] 23 Aug, 2013 [facility] [address] [id number] [address] [place] [address], [place] [address] 23 Aug, 2012 [facility] [address] [id number] [address] [place] [address], [place] [address] 23 Aug, 2013 [facility] [address] [id number] [address] [place] [address], [place] [address] 23 Aug, 2013 [facility] [address] [id number] [address] [place] [address], [place] [address] 22 Aug, 2012 [facility] [address] [id number] [address] [place] [address], [place] [address] 22 Aug, 2013 [facility] [address] [id number] [address] [place] [address], [place] [address] 18 Aug, 2013 [facility] [address] [id number] [address] [place] [address], [place] [address] 18 Aug, 2013 [facility] [address] [id number] [address] [place] [address], [place] [address] 18 Aug, 2013 [facility] [address] [id number] [address] [place] [address], [place] [address] 18 Aug, 2013 [facility] [address] [id number] [address] [place] [address] 17 Aug, 2013 [facility] [address] [id number] [address] [place] [address] 14 Aug, 2013 [facility] [address] [id number] [address] [place] [address] 14 Aug, 2013 [facility] [address] [id number] [address] [place] [address], [place] [address] Aug, [facility] [address] [id number] [address] [place] [address] 20 Jul, 2013 [facility] [address] [id number] [address] [place] [address] 19 Jul, 2013 [facility] [address] [id number] [address] [place] [address], [place] [address] 18 Jul, 2013 [facility] [address] [id number] [address] [place] [address], [place] [address] Jul, [facility] [address] [id number] [address] [place] [address], [place] [address] Jul, [facility] [address] [id number] [address] [place] [address], [place] [address] Jun, [facility] [address] [id number] [address] [place] [address], [place] [address] Jun, [facility] [address] [id number] [address] [place] [address], [place] [address] Jun, [facility] [address] [id number] [address] [place] [address], [place] [address] Jun, [facility] [address] [id number] [address] [place] [address], [place] [address] Jun, [facility] [address] [id number] [address] [place] [address], [place] [address] Jun, [facility] [address] [id number] [address] [place] [address], [place] [address] Jun, [facility] [address] [id number] [address] [place] [address], [place] [address] Jun, [facility] [address] [id number] [address] [place] [address], [place] [address] Jun, [facility] [address] [id number] [address] [place] [address], [place] [address] Jun, [facility] [address] [id number] [address] [place] [address], [place] [address] May, [facility] [address] [id number] [address] [place] [address], [place] [address] May, [facility] [address] [id number] [address] [place] [address], [place] [address] May, [facility] [address] [id number] [address] [place] [address], [place] [address] May, [facility] [address] [id number] [address] [place] [address], [place] [address] May, [facility] [address] [id number] [address] [place] [address], [place] [address] May, [facility] [address] [id number] [address] [place] [address], [place] [address] May, [facility] [address] [id number] [address] [place] [address], [place] [address] May, [facility] [address] [id number] [address] [place] [address], [place] [address] May, [facility] [address] [id number] [address] [place] [address], [place] [address] Apr, [facility] [address] [id number] [address] [place] [address], [place] [address] Apr, [facility] [address] [id number] [address] [place] [address], [place] [address] Apr, [facility] [address] [id number] [address] [place] [address], [place] [address] Apr, [facility] [address] [id number] [address] [place] [address], [place] [address] Apr, [facility] [address] [id number] [address] [place] [address], [place] [address] Apr, [facility] [address] [id number] [address] [place] [address], [place] [address] Apr, [facility] [address] [id number] [address] [place] [address], [place] [address] March, [facility] [address] [id number] [address] [place] [address], [place] [address] Feb, [facility] [address] [id number] [address] [place] [address], [place] [address] Feb, [facility] [address] [id number] [address] [place] [address], [place] [address] Feb, [facility] [address] [id number] [address] [place] [address], [place] [address] 28 Jan, 2013 [facility] [address] [id number] [address] [place] [address], [place] [address] 21 Jan, 2013 [facility] [address] [id number] [address] [place] [address], [place] [address] 19 Jan, 2013 [facility] [address] [id number] [address] [place] [address], [place] [address] 14 Jan, 2013 [facility] [address] [id number] [address] [place] [address], [place] [address] 12 Jan, 2013 [facility] [address] [id number] [address] [place] [address], [place] [address] 08 Jan, 2013 [facility] [address] [id number] [address] [place] [address], [place] [address] 07 Jan, 2013 [facility] [address] [id number] [address] [place] [address], [place] [address] 04 Jan, 2013 [facility] [address] [id number] [address] [place] [address], [place] [address] 28 Dec, 2012 [facility] [address] [id number] [address] [place] [address], [place] [address] 25 Dec, 2012 [facility] [address] [id number] [address] [place] [address], [place] [address] 13 Dec, 2012 [facility] [address] [id number] [address] [place] [address], [place] [address] 11 Dec, 2012 [facility] [address] [id number] [address] [place] [address], [place] [address] 07 Dec, 2012 [facility] [address] [id number] [address] [place] [address], [place] [address] 06 Dec, 2012 [facility] [address] [id number] [address] [place] [address], [place] [address] Dec, [facility] [address] [id number] [address] [place] [address], [place] [address] Nov, [facility] [address] [id number] [address] [place] [address], [place] [address] Nov, [facility] [address] [id number] [address] [place] [address], [place] [address] Nov, [facility] [address] [id number] [address] [place] [address], [place] [address] Nov, [facility] [address] [id number] [address] [place] [address], [place] [address] Nov, [facility] [address] [id number] [address] [place] [address], [place] [address] Nov, [facility] [address] [id number] [address] [place] [address], [place] [address] Nov, [facility] [address] [id number] [address] [place] [address], [place] [address] Oct, [facility] [address] [id number] [address] [place] [address], [place] [address] Oct, [facility] [address] [id number] [address] [place] [address], [place] [address] Oct, [facility] [address] [id number] [address] [place] [address], [place] [address] Oct, [facility] [address] [id number] [address] [place] [address], [place] [address] Oct, [facility] [address] [id number] [address] [place] [address], [place] [address] Oct, [facility] [address] [id number] [address] [place] [address], [place] [address] Oct, [facility] [address] [id number] [place] [address] Oct, [facility] [address] [id number] [address] [place] [address], [place] [address] Oct, [facility] [address] [id number] [address] [place] [address], [place] [address] Oct, [facility] [address] [id number] [address] [place] [address], [place] [address] Oct, [facility] [address] [id number] [address] [place] [address], [place] [address] Oct, [facility] [address] [id number] [address] [place] [address], [place] [address] Sep, [facility] [address] [id number] [address] [place] [address], [place] [address] Sep, [facility] [address] [id number] [address] [place] [address], [place] [address] Sep, [facility] [address] [id number] [address] [place] [address] Sep, [facility] [address] [id number] [address] [place] [address] Sep, [facility] [address] [id number] [address] [place] [address], [place] [address] Sep, [facility] [address] [id number] [address] [place] [address] Sep, [facility] [address] [id number] [address] [place] [address] Sep, [facility] [address] [id number] [address] [place] [address], [place] [address] Sep, [facility] [address] [id number] [address] [place] [address], [place] [address] Sep, [facility] [address] [id number] [address] [place] [address] Sep, [facility] [address] [id number] [address] [place] [address], [place] [address] Aug, [facility] [address] [id number] [address] [place] [address], [place] [address] Aug, [facility] [address] [id number] [address] [place] [address], [place] [address] Aug, [facility] [address] [id number] [address] [place] [address], [place] [address] Aug, [facility] [address] [id number] [address] [place] [address], [place] [address] Aug, [facility] [address] [id number] [address] [place] [address], [place] [address] Aug, [facility] [address] [id number] [address] [place] [address], [place] [address] Aug, [facility] [address] [id number] [address] [place] [address], [place] [address] Aug, [facility] [address] [id number] [address] [place] [address], [place] [address] Aug, [facility] [address] [id number] [address] [place] [address], [place] [address] Aug, [facility] [address] [id number] [address] [place] [address], [place] [address] Jul, [facility] [address] [id number] [address] [place] [address], [place] [address] 20 Jul, 2012 [facility] [address] [id number] [address] [place] [address], [place] [address] 10 Jul, 2012 [facility] [address] [id number] [address] [place] [address], [place] [address] 06 Jul, 2012 [facility] [address] [id number] [address] [place] [address], [place] [address] Jun, [facility] [address] [id number] [address] [place] [address], [place] [address] Jun, [facility] [address] [id number] [address] [place] [address], [place] [address] 16 Jun, 2012 [facility] [address] [id number] [address] [place] [address], [place] [address] Jun, [facility] [address] [id number] [address] [place] [address], [place] [address] Jun, [facility] [address] [id number] [address] [place] [address], [place] [address] Jun, [facility] [address] [id number] [address] [place] [address], [place] [address] Jun, [facility] [address] [id number] [address] [place] [address], [place] [address] May, [facility] [address] [id number] [address] [place] [address], [place] [address] May, [facility] [address] [id number] [address] [place] [address], [place] [address] May, [facility] [address] [id number] [address] [place] [address], [place] [address] May, [facility] [address] [id number] [address] [place] [address], [place] [address] May, [facility] [address] [id number] [address] [place] [address], [place] [address] Apr, [facility] [address] [id number] [address] [place] [address], [place] [address] Apr, [facility] [address] [id number] [address] [place] [address], [place] [address] Apr, [facility] [address] [id number] [address] [place] [address], [place] [address] Apr, [facility] [address] [id number] [address] [place] [address], [place] [address] Apr, [facility] [address] [id number] [address] [place] [address], [place] [address] March, [facility] [address] [id number] [address] [place] [address], [place] [address] March, [facility] [address] [id number] [address] [place] [address], [place] [address] March, [facility] [address] [id number] [address] [place] [address], [place] [address] March, [facility] [address] [id number] [address] [place] [address], [place] [address] March, [facility] [address] [id number] [address] [place] [address], [place] [address] March, [facility] [address] [id number] [address] [place] [address], [place] [address] March, [facility] [address] [id number] [address] [place] [address], [place] [address] March, [facility] [address] [id number] [address] [place] [address], [place] [address] March, [facility] [address] [id number] [address] [place] [address], [place] [address] March, [facility] [address] [id number] [address] [place] [address], [place] [address] 30 Feb, 2012 [facility] [address] [id number] [address] [place] [address], [place] [address] Feb, [facility] [address] [id number] [address] [place] [address], [place] [address] Feb, [facility] [address] [id number] [address] [place] [address], [place] [address] 19 Feb, 2012 [facility] [address] [id number] [address] [place] [address], [place] [address] 17 Feb, 2012 [facility] [address] [id number] [address] [place] [address], [place] [address] 17 Feb, 2012 [facility] [address] [id number] [address] [place] [address], [place] [address] Feb, [facility] [address] [id number] [address] [place] [address], [place] [address] Feb, [facility] [address] [id number] [address] [place] [address], [place] [address] Feb, [facility] [address] [id number] [address] [place] [address], [place] [address] 08 Jan, 2012 [facility] [address] [id number] [address] [place] [address], [place] [address] Jan, [facility] [address] [id number] [address] [place] [address], [place] [address] 05 Jan, 2012 [facility] [address] [id number] [address] [place] [address], [place] [address] Jan, [facility] [address] [id number] [address] [place] [address], [place] [address] Dec, [facility] [address] [id number] [address] [place] [address], [place] [address] Dec, [facility] [address] [id number] [address] [place] [address], [place] [id number] Nov, [facility] [address] [id number] [address] [place] [address], [place] [phone] Nov, [facility] [address] [id number] [address] [place] [address], [place] [phone] Nov, [facility] [address] [id number] [address] [place] [address], [place] [phone] 16 Nov, 2011 [facility] [address] [id number] [address] [place] [address], [place] [id number] Nov, [facility] [address] [id number] [address] [place] [address], [place] [phone] 30 Oct, 2011 [facility] [address] [id number] [address] [place] [address], [place] [phone] Oct, [facility] [address] [id number] [address] [place] [phone] Oct, [facility] [address] [id number] [address] [place] [phone] Oct, [facility] [address] [id number] [address] [place] [phone] Oct, [facility] [address] [id number] [address] [place] [phone] Oct, [facility] [address] [id number] [address] [place] [phone] Oct, [facility] [address] [id number] [address] [place] [phone] Oct, [facility] [address] [id number] [address] [place] [phone] Sep, IMMUNIZATIONS No Known Immunizations SOCIAL HISTORY Never Assessed REASON FOR VISIT PLAN OF CARE VITAL SIGNS Height 62 in 2012-05-20 Weight 167 lbs 2012-05-20 Heart Rate 100 bpm 2012-05-20 Respiratory Rate 22 2012-05-20 Blood pressure systolic 155 mmHg 2012-05-20 Blood pressure diastolic 84 mmHg 2012-05-20 MEDICATIONS Unknown Medications RESULTS No Results PROCEDURES [...] discharged 11/27/2017 11/26/2017 Hospitalization History [facility]- Went Unrepsonsive, Hit head 2017 Hospitalization History [facility]- Back Pain 8
--- OUTSIDE RECORDS SUMMARY | 2020-06-18 14:39 | XMS REPORT ---
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 [employer] Manager Name Role Phone MARIA DE JESUS Sanchez Unavailable PROBLEMS Type Condition ICD9-CM Code OGB38-MM Code Onset Dates Condition S tatus SNOMED Code Problem Hypertension I10 Active 7346484 3 Problem Hyperlipidemia E78.5 Active 28377 004 Problem Coronary artery disease I25.10 Active 24381909 Problem Low back pain M54.5 Active 707817 009 Problem Other chronic pain G89.29 Active 8 0911845 Problem Ventral hernia without obstruction or gangrene K43 .9 Active 392477831 Problem Type 2 diabetes mellitus wit hout complication, without long-term current use of insulin E11.9 Active 148415558 Problem Anxiety F41.9 Active 01810598 Problem Peripheral vascular disease I73.9 Ac tive 128273881 Problem Insomnia G47.00 Active 104292258 Problem Microcytic anemia D50.9 Active 23 2861035 Problem Pharyngeal dysphagia R13.13 Active 76089750432675 Problem Other iron deficiency anemia D50.8 A ctive 08802477 Problem Reactive depression F32.9 Active 28468553 Problem Paroxysmal atrial fibrillation I48.0 Active 596968353 Problem 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 Active 74410969 Problem Encounter for suprapubic catheter care Z43.5 Active 482592659 Problem Neurogenic bladder N31.9 Active 3 [id number] ALLERGIES No Information ENCOUNTERS Encounter Location Date Diagnosis [facility] [address] [facility] [id number] [address] [place] [address] Feb, Anxiety F41.9 and Strain of right shoulder, subsequent encounter S46.911D [facility] [address] [facility] [id number] [address] [place] [address] Jan, Anxiety F41.9 and Strain of right shoulder, subsequent encounter S46.911D [facility] [address] [id number] [address] [place] [address] Jan, [facility] [address] [place] [address] Jan, Neurogenic bladder N31.9 [facility] [address] [id number] [address] [place] [address] Dec, [place] [facility] [address] [id number] [address] [place] [address] Dec, [place] [address] [id number] [address] [place] [address] Dec, Anxiety F41.9 and Strain of right shoulder, subsequent encounter S46.911D [place] [address] [id number] [address] [place] [address] 10 Dec, 2019 Other iron deficiency anemia D50.8 [place] [address] [id number] [address] [place] [address] 04 Dec, 2019 [facility] [address] [place] [address] Dec, Encounter for suprapubic catheter care Z 43.5 and Microcytic anemia D50.9 [place] [address] [id number] [address] [place] [address] Dec, [place] [address] [id number] [address] [place] [address] Nov, Anxiety F41.9 and Strain of right shoulder, subsequent encounter S46.911D [place] [address] [id number] [address] [place] [address] Nov, Hypertension I10 [facility] [address] [place] [id number] Nov, Pneumonia of both lungs due to infectiou s organism, unspecified part of lung J18.9 and Suprapubic catheter Z93.59 [place] [address] [id number] [address] [place] [address] Nov, Hypertension I10 and Reactiv e depression F32.9 [facility] [address] [id number] [address] [place] [address] Oct, Strain of right shoulder, scherer bsequent encounter S46.911D and Anxiety F41.9 [facility] [address] [id number] [address] [place] [address] Oct, Via [facility] [address] [place] [address] Oct, Suprapubic catheter Z93.59 and Candidias is, intertriginous B37.2 [facility] [address] [id number] [address] [place] [address] Oct, Suprapubic catheter Z93.59 [facility] [address] [id number] [address] [place] [address] Oct, Anxiety F41.9 and Strain of right shoulder, subsequent encounter S46.911D [facility] [address] [id number] [address] [place] [address] Sep, [facility] [address] [id number] [address] [place] [address] Sep, [facility] [address] [id number] [address] [place] [address] Sep, Via [facility] [address] [place] [address] Sep, Suprapubic catheter Z93.59 [facility] [address] [id number] [address] [place] [address] Sep, Anxiety F41.9 and Strain of right shoulder, subsequent encounter S46.911D [facility] [address] [id number] [address] [place] [address] Aug, [facility] [address] [id number] [address] [place] [address] Aug, [facility] [address] [id number] [address] [place] [address] Aug, Anxiety F41.9 and Strain of right shoulder, subsequent encounter S46.911D Via [facility] [address] [place] [address] Aug, Suprapubic catheter Z93.59 [facility] [address] [id number] [address] [place] [address] Jul, Strain of right shoulder, scherer bsequent encounter S46.911D and Anxiety F41.9 [facility] [address] [id number] [address] [place] [address] Jul, Anxiety F41.9 [facility] [address] [id number] [address] [place] [address] Jun, [facility] [address] [id number] [address] [place] [address] Jun, [facility] [address] [id number] [address] [place] [address] Jun, [facility] [address] [id number] [address] [place] [address] Jun, Strain of right shoulder, scherer bsequent encounter S46.911D [facility] [address] [id number] [address] [place] [address] Jun, Strain of right shoulder, scherer bsequent encounter S46.911D [facility] [address] [id number] [address] [place] [address] Jun, Anxiety F41.9 [facility] [address] [place] [address] Jun, Neurogenic bladder N31.9 and Anxiety F41 .9 Via [facility] [address] [place] [address] May, Anxiety F41.9 [facility] [address] [id number] [address] [place] [address] May, Dysuria R30.0 [place] [address] [id number] [address] [place] [address] May, Strain of right shoulder, scherer bsequent encounter S46.911D and Anxiety F41.9 [place] [address] [id number] [address] [place] [address] Apr, Via [facility] [address] [place] [address] 18 Apr, 2019 Strain of right shoulder, subsequent enc ounter S46.911D [place] [address] [id number] [address] [place] [address] 14 Apr, 2019 Strain of right shoulder, scherer bsequent encounter S46.911D and Anxiety F41.9 Via [facility] [address] [place] [address] 13 Apr, 2019 Type 2 diabetes mellitus without complic ation, without long-term current use of insulin E11.9 and Neurogenic bladder N31.9 Via [facility] [address] [place] [address] 11 Apr, 2019 Strain of right shoulder, subsequent enc ounter S46.911D ; History of GI bleed Z87.19 ; Neurogenic bladder N31.9 and Reactive depression F32.9 [place] [address] [id number] [address] [place] [address] 10 Apr, 2019 Acute pain of left shoulder M25.512 [place] [address] [id number] [address] [place] [address] 07 Apr, 2019 [place] [address] [id number] [address] [place] [address] Apr, Anxiety F41.9 and Other chromium plater 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 Via [facility] [address] [place] [address] March, Gastrointestinal hemorrhage associated w ith acute gastritis K29.01 [place] [address] [id number] [address] [place] [address] March, Via [facility] [address] [place] [id number] March, Bronchitis J40 [facility] [address] [id number] [address] [place] [address] March, Cough R05 [facility] [address] [id number] [address] [place] [address] March, Other chronic pain G89.29 [facility] [address] [id number] [address] [place] [address] March, Anxiety F41.9 [facility] [address] [id number] [address] [place] [address] March, [facility] [address] [id number] [address] [place] [address] Feb, Other chronic pain G89.29 [facility] [address] [id number] [address] [place] [address] Feb, Anxiety F41.9 [facility] [address] [id number] [address] [place] [address] Feb, Other chronic pain G89.29 [facility] [address] [place] [address] Feb, Neurogenic bladder N31.9 and Suprapubic catheter Z93.59 [facility] [address] [id number] [address] [place] [address] Jan, Anxiety F41.9 [facility] [address] [id number] [address] [place] [address] Dec, Anxiety F41.9 [facility] [address] [id number] [address] [place] [address] Dec, Other chronic pain G89.29 an d Anxiety F41.9 [facility] [address] [id number] [address] [place] [address] Dec, Via [facility] [address] [place] [address] Dec, Neurogenic bladder N31.9 and Suprapubic catheter Z93.59 [facility] [address] [id number] [address] [place] [address] Nov, Other chronic pain G89.29 an d Anxiety F41.9 [facility] [address] [id number] [address] [place] [address] Nov, Via [facility] [address] [place] [address] Nov, Suprapubic catheter Z93.59 [facility] [address] [id number] [address] [place] [address] Oct, Other chronic pain G89.29 an d Anxiety F41.9 [facility] [address] [id number] [address] [place] [address] Oct, [facility] [address] [id number] [address] [place] [address] Oct, Suprapubic catheter Z93.59 [facility] [address] [id number] [address] [place] [address] Oct, Via [facility] [address] [place] [address] Oct, [facility] [address] [id number] [address] [place] [address] Oct, Anxiety F41.9 [facility] [address] [id number] [address] [place] [address] Oct, Anxiety F41.9 [facility] [address] [place] [address] Oct, Other chronic pain G89.29 [facility] [address] [id number] [address] [place] [address] Sep, Other chronic pain G89.29 [facility] [address] [place] [address] Sep, Suprapubic catheter Z93.59 and Cervicalg ia M54.2 [facility] [address] [id number] [address] [place] [address] Sep, [facility] [address] [id number] [address] [place] [address] Sep, [facility] [address] [id number] [address] [place] [address] Sep, Via [facility] [address] [place] [address] Aug, Cystitis N30.90 [facility] [address] [id number] [address] [place] [address] Aug, [facility] [address] [id number] [address] [place] [address] Aug, Other chronic pain G89.29 [facility] [address] [id number] [address] [place] [address] Aug, Via [facility] [address] [place] [address] Aug, Encounter for suprapubic catheter care Z 43.5 [facility] [address] [id number] [address] [place] [address] Jul, Via [facility] [address] [place] [address] Jul, [facility] [address] [id number] [address] [place] [address] Jul, Other chronic pain G89.29 [facility] [address] [id number] [address] [place] [address] Jul, [facility] [address] [id number] [address] [place] [address] Jul, Via [facility] [address] [place] [address] Jun, 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 [facility] [address] [id number] [address] [place] [address] Jun, Other chronic pain G89.29 [facility] [address] [id number] [address] [place] [address] Jun, Via [facility] [address] [place] [address] May, Anxiety F41.9 ; Type 2 diabetes mellitus without complication, without long-term current use of insulin E11.9 ; Hypertension I10 ; Low back pain M54.5 ; Paroxysmal atrial fibrillation I48.0 and 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 [facility] [address] [id number] [address] [place] [address] May, Other chronic pain G89.29 [facility] [address] [place] [address] May, Low back pain M54.5 [facility] [address] [id number] [address] [place] [address] May, [facility] [address] [id number] [address] [place] [address] Apr, Other chronic pain G89.29 [facility] [address] [id number] [address] [place] [address] Apr, [facility] [address] [id number] [address] [place] [address] Apr, Via [facility] [address] [place] [address] Apr, Closed compression fracture of L3 lumbar vertebra with routine healing, subsequent encounter S32.030D [facility] [address] [place] [address] Apr, Low back pain M54.5 [facility] [address] [place] [address] Apr, Coccydynia M53.3 [facility] [address] [id number] [address] [place] [address] March, [facility] [address] [facility] [id number] [address] [place] [address] March, Other chronic pain G89.29 [facility] [address] [facility] [id number] [address] [place] [address] March, [facility] [address] [facility] [id number] [address] [place] [address] March, [facility] [address] [facility] [id number] [address] [place] [address] Feb, [facility] [address] [id number] [address] [place] [address] Feb, Other chronic pain G89.29 [facility] [address] [place] [address] Feb, Other chronic pain G89.29 and Anxiety F4 1.9 [facility] [address] [facility] [id number] [address] [place] [address] Feb, [facility] [address] [facility] [id number] [address] [place] [address] Jan, [facility] [address] [facility] [id number] [address] [place] [address] Jan, [facility] [address] [facility] [id number] [address] [place] [address] Jan, [facility] [address] [facility] [id number] [address] [place] [address] Jan, [facility] [address] 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 [id number] [address] [place] [address] Nov, [facility] [address] [id number] [place] [address] Nov, Anxiety F41.9 [facility] [address] [place] [address] Nov, Status post surgery Z98.890 ; Confused R 41.0 ; Anxiety F41.9 and Other chronic pain G89.29 [facility] [address] [id number] [place] [address] Nov, Other chronic pain G89.29 [facility] [address] [facility] [id number] [address] [place] [address] Oct, [facility] [address] [id number] [place] [address] Oct, Other chronic pain G89.29 [facility] [address] [facility] [id number] [address] [place] [address] Oct, Anxiety F41.9 [facility] [address] [id number] [place] [address] Sep, Other chronic pain G89.29 [facility] [address] [id number] [place] [address] Sep, [facility] [address] [place] [address] Aug, Dysuria R30.0 and Anxiety F41.9 [facility] [address] [id number] [address] [place] [address] Aug, [facility] [address] [id number] [place] [address] Aug, Other chronic pain G89.29 [facility] [address] [id number] [address] [place] [address] Jul, Other chronic pain G89.29 [facility] [address] [id number] [place] [id number] Jun, [facility] [address] [id number] [place] [address] Jun, Other chronic pain G89.29 [facility] [address] [id number] [address] [place] [address] Jun, [facility] [address] [id number] [address] [place] [address] May, Other chronic pain G89.29 [facility] [address] [id number] [address] [place] [address] Apr, Other chronic pain G89.29 [facility] [address] [place] [address] Apr, Reactive depression F32.9 and Pharyngeal dysphagia R13.13 [facility] [address] [id number] [address] [place] [address] Apr, Urinary tract infection with out hematuria, site unspecified N39.0 [facility] [address] [id number] [address] [place] [address] March, Other chronic pain G89.29 [facility] [address] [id number] [address] [place] [address] Feb, Other chronic pain G89.29 [facility] [address] [id number] [address] [place] [address] Feb, [facility] [address] [id number] [place] [id number] Feb, [facility] [employer] [facility] [address] [place] [address] Feb, Dysuria R30.0 and Ventral hernia without obstruction or gangrene K43.9 [facility] [address] [id number] [address] [place] [address] Jan, Other chronic pain G89.29 [facility] [address] [id number] [place] [id number] Dec, Other chronic pain G89.29 [facility] [address] [id number] [address] [place] [address] Nov, Other chronic pain G89.29 [facility] [address] [place] [address] Nov, Lymphadenitis I88.9 [facility] [address] [id number] [address] [place] [address] Nov, Other chronic pain G89.29 [facility] [address] [facility] [id number] [address] [place] [address] Nov, [facility] [id number] [place] [id number] Nov, Other chronic pain G89.29 Via [facility] [employer] [address] [place] [id number] Oct, Low back pain M54.5 ; Hypertension I10 a nd Type 2 diabetes mellitus without complication, without long-term current use of insulin E11.9 [facility] [address] [id number] [address] [place] [id number] Oct, [facility] [address] [id number] [address] [place] [phone] Oct, [facility] [address] [id number] [address] [place] [phone] Oct, [facility] [address] [id number] [address] [place] [phone] Oct, [facility] [address] [id number] [address] [place] [phone] Sep, [facility] [address] [id number] [address] [place] [id number] Sep, [facility] [address] [id number] [address] [place] [id number] Aug, Other chronic pain G89.29 [facility] [address] [id number] [address] [place] [id number] Jul, [facility] [address] [id number] [address] [place] [phone] Jul, [facility] [address] [id number] [address] [place] [id number] Jul, [facility] [address] [id number] [address] [place] [phone] Jun, [facility] [address] [id number] [address] [place] [phone] Jun, [facility] [address] [facility] [place] [id number] Jun, Low back pain M54.5 ; Other chronic pain G89.29 and Coronary artery disease I25.10 [facility] [address] [id number] [address] [place] [id number] Jun, [facility] [address] [id number] [address] [place] [phone] May, [facility] [address] [id number] [address] [place] [phone] May, [facility] [address] [id number] [address] [place] [id number] May, Other chronic pain G89.29 [facility] [address] [id number] [address] [place] [phone] May, [facility] [address] [id number] [address] [place] [phone] Apr, [facility] [address] [id number] [address] [place] [phone] Apr, Acute cystitis without hemat uria N30.00 [facility] [address] [id number] [address] [place] [address] 16 Apr, 2016 Acute cystitis without hemat uria N30.00 ; Coronary artery disease I25.10 ; Low back pain M54.5 and Other chronic pain G89.29 [facility] [address] [id number] [address] [place] [address] 13 Apr, 2016 Other chronic pain G89.29 [facility] [address] [id number] [address] [place] [address] March, Other chronic pain G89.29 [facility] [address] [id number] [address] [place] [address] 18 Feb, 2016 [facility] [address] [id number] [address] [place] [address] Feb, Arthritis M19.90 [facility] [address] [id number] [address] [place] [address] Feb, [facility] [address] [id number] [address] [place] [address] Jan, [facility] [address] [id number] [address] [place] [address] Jan, [facility] [address] [id number] [address] [place] [address] Jan, Other chronic pain G89.29 [facility] [address] [id number] [address] [place] [address] Jan, Hypertension I10 ; Coronary artery disease I25.10 and Insomnia G47.00 [facility] [address] [id number] [address] [place] [address] Jan, [facility] [address] [id number] [address] [place] [address] 29 Dec, 2015 Right hip pain M25.551 [facility] [address] [id number] [address] [place] [address] Dec, [facility] [address] [id number] [address] [place] [address] Dec, [facility] [address] [id number] [address] [place] [address] Dec, [facility] [address] [id number] [address] [place] [address] Dec, Other chronic pain G89.29 [facility] [address] [id number] [address] [place] [address] Dec, [facility] [address] [id number] [address] [place] [address] Nov, [facility] [address] [id number] [address] [place] [address] Nov, Other chronic pain G89.29 [facility] [address] [id number] [address] [place] [address] Nov, Right hip pain M25.551 and C oronary artery disease I25.10 [facility] [address] [id number] [address] [place] [address] Nov, Other chronic pain G89.29 [facility] [address] [id number] [address] [place] [address] Oct, [facility] [address] [id number] [address] [place] [address] Oct, [facility] [address] [id number] [address] [place] [address] Sep, [facility] [address] [id number] [address] [place] [address] Sep, [facility] [address] [id number] [address] [place] [address] Aug, [facility] [address] [id number] [address] [place] [address] Aug, Hypertension I10 ; Coronary artery disease I25.10 and Arthritis M19.90 [facility] [address] [id number] [address] [place] [address], [place] [address] Jun, [facility] [address] [id number] [address] [place] [address] Jun, Essential hypertension, jayson gn 401.1 ; Other chronic pain 338.29 and Chronic airway obstruction, not elsewhere classified 496 [facility] [address] [id number] [address] [place] [address] Jun, [facility] [address] [id number] [address] [place] [address], [place] [address] Jun, [facility] [address] [id number] [address] [place] [address] Jun, [facility] [address] [id number] [address] [place] [address] May, [facility] [address] [id number] [address] [place] [address] May, [facility] [address] [id number] [address] [place] [address] Apr, [facility] [address] [id number] [address] [place] [address] Apr, [facility] [address] [id number] [address] [place] [address] Apr, [facility] [address] [id number] [address] [place] [address] March, [facility] [address] [id number] [address] [place] [address] March, [facility] [address] [id number] [address] [place] [address] March, [facility] [address] [id number] [address] [place] [address] March, [facility] [address] [id number] [address] [place] [address], [place] [address] March, Sialadenitis 527.2 [facility] [address] [id number] [address] [place] [address], [place] [address] Feb, [facility] [address] [id number] [address] [place] [address], [place] [address] Feb, [facility] [address] [id number] [address] [place] [address], [place] [address] Feb, [facility] [address] [id number] [address] [place] [address], [place] [address] Feb, [facility] [address] [id number] [address] [place] [address], [place] [address] Feb, [facility] [address] [id number] [address] [place] [address], [place] [address] Jan, [facility] [address] [id number] [address] [place] [address], [place] [address] Jan, [facility] [address] [id number] [address] [place] [address], [place] [address] Jan, [facility] [address] [id number] [address] [place] [address], [place] [address] Jan, [facility] [address] [id number] [address] [place] [address], [place] [address] Jan, [facility] [address] [id number] [address] [place] [address], [place] [address] Jan, [facility] [address] [id number] [address] [place] [address], [place] [address] Dec, [facility] [address] [id number] [address] [place] [address], [place] [address] Dec, [facility] [address] [id number] [address] [place] [address], [place] [address] Dec, [facility] [address] [id number] [address] [place] [address] Dec, [facility] [address] [id number] [address] [place] [address], [place] [address] Dec, [facility] [address] [id number] [address] [place] [address] Dec, [facility] [address] [id number] [address] [place] [address], [place] [address] Nov, [facility] [address] [id number] [address] [place] [address], [place] [address] Nov, [facility] [address] [id number] [address] [place] [address], [place] [address] Nov, [facility] [address] [id number] [address] [place] [address], [place] [address] Nov, [facility] [address] [id number] [address] [place] [address] Nov, [facility] [address] [id number] [address] [place] [address], [place] [address] Nov, [facility] [address] [id number] [address] [place] [address] Nov, [facility] [address] [id number] [address] [place] [address] Nov, [facility] [address] [id number] [address] [place] [address] Nov, [facility] [address] [id number] [address] [place] [address] Nov, [facility] [address] [id number] [address] [place] [address] Nov, [facility] [address] [id number] [address] [place] [address] Nov, [facility] [address] [id number] [address] [place] [address] Nov, [facility] [address] [id number] [address] [place] [address], [place] [address] Nov, [facility] [address] [id number] [address] [place] [address], [place] [address] Oct, [facility] [address] [id number] [address] [place] [address], [place] [address] Oct, [facility] [address] [id number] [address] [place] [address], [place] [address] Oct, [facility] [address] [id number] [address] [place] [address], [place] [address] Oct, [facility] [address] [id number] [address] [place] [address], [place] [address] Oct, [facility] [address] [id number] [address] [place] [address], [place] [address] Oct, [facility] [address] [id number] [address] [place] [address], [place] [address] Oct, [facility] [address] [id number] [address] [place] [address], [place] [address] Oct, [facility] [address] [id number] [address] [place] [address], [place] [address] Oct, [facility] [address] [id number] [address] [place] [address], [place] [address] Sep, [facility] [address] [id number] [address] [place] [address], [place] [address] Sep, [facility] [address] [id number] [address] [place] [address], [place] [address] Sep, [facility] [address] [id number] [address] [place] [address], [place] [address] Sep, [facility] [address] [id number] [address] [place] [address], [place] [address] Sep, [facility] [address] [id number] [address] [place] [address], [place] [address] Sep, [facility] [address] [id number] [address] [place] [address], [place] [address] Sep, [facility] [address] [id number] [address] [place] [address], [place] [address] Sep, [facility] [address] [id number] [address] [place] [address], [place] [address] Sep, [facility] [address] [id number] [address] [place] [address], [place] [address] Sep, [facility] [address] [id number] [address] [place] [address], [place] [address] Sep, [facility] [address] [id number] [address] [place] [address], [place] [address] Sep, [facility] [address] [id number] [address] [place] [address], [place] [address] Aug, [facility] [address] [id number] [address] [place] [address], [place] [address] Aug, [facility] [address] [id number] [address] [place] [address], [place] [address] Aug, [facility] [address] [id number] [address] [place] [address], [place] [address] Aug, [facility] [address] [id number] [address] [place] [address], [place] [address] Aug, [facility] [address] [id number] [address] [place] [address] Aug, [facility] [address] [id number] [address] [place] [address], [place] [address] Aug, [facility] [address] [id number] [address] [place] [address], [place] [address] Aug, [facility] [address] [id number] [address] [place] [address], [place] [address] 30 Jul, 2014 [facility] [address] [id number] [facility] [place] [address] 30 Jul, 2013 [facility] [address] [id number] [address] [place] [address], [place] [address] 30 Jul, 2013 [facility] [address] [id number] [facility] [place] [address] 30 Jul, 2013 [facility] [address] [id number] [address] [place] [address], [place] [address] 25 Jul, 2013 [facility] [address] [id number] [address] [place] [address], [place] [address] 25 Jul, 2013 [facility] [address] [id number] [address] [place] [address], [place] [address] 15 Jul, 2013 [facility] [address] [id number] [address] [place] [address], [place] [address] 15 Jul, 2013 [facility] [address] [id number] [address] [place] [address], [place] [address] 11 Jul, 2013 [facility] [address] [id number] [address] [place] [address], [place] [address] Jul, 2013 [facility] [address] [id number] [address] [place] [address], [place] [address] Jun, [facility] [address] [id number] [address] [place] [address], [place] [address] Jun, [facility] [address] [id number] [address] [place] [address], [place] [address] Jun, [facility] [address] [id number] [address] [place] [address], [place] [address] Jun, [facility] [address] [id number] [address] [place] [address], [place] [address] Jun, [facility] [address] [id number] [address] [place] [address], [place] [address] Jun, [facility] [address] [id number] [address] [place] [address], [place] [address] Jun, [facility] [address] [id number] [facility] [place] [address] Jun, [facility] [address] [id number] [facility] [place] [address] Jun, [facility] [address] [id number] [facility] [place] [address] Jun, [facility] [address] [id number] [address] [place] [address], [place] [address] Jun, [facility] [address] [id number] [address] [place] [address], [place] [address] Jun, [facility] [address] [id number] [address] [place] [address], [place] [address] Jun, [facility] [address] [id number] [address] [place] [address], [place] [address] Jun, [facility] [address] [id number] [address] [place] [address], [place] [address] Jun, [facility] [address] [id number] [address] [place] [address], [place] [address] Jun, [facility] [address] [id number] [address] [place] [address], [place] [address] Jun, [facility] [address] [id number] [address] [place] [address], [place] [address] Jun, [facility] [address] [id number] [address] [place] [address], [place] [address] Jun, [facility] [address] [id number] [address] [place] [address], [place] [address] Jun, [facility] [address] [id number] [address] [place] [address], [place] [address] Jun, [facility] [address] [id number] [address] [place] [address], [place] [address] Jun, [facility] [address] [id number] [address] [place] [address], [place] [address] May, [facility] [address] [id number] [facility] [place] [address] May, [facility] [address] [id number] [address] [place] [address], [place] [address] May, [facility] [address] [id number] [address] [place] [address], [place] [address] May, [facility] [address] [id number] [address] [place] [address], [place] [address] May, [facility] [address] [id number] [address] [place] [address], [place] [address] May, [facility] [address] [id number] [address] [place] [address], [place] [address] May, [facility] [address] [id number] [address] [place] [address], [place] [address] May, [facility] [address] [id number] [address] [place] [address], [place] [address] May, [facility] [address] [id number] [address] [place] [address], [place] [address] May, [facility] [address] [id number] [address] [place] [address], [place] [address] May, [facility] [address] [id number] [address] [place] [address], [place] [address] May, [facility] [address] [id number] [address] [place] [address], [place] [address] May, [facility] [address] [id number] [address] [place] [address], [place] [address] Apr, [facility] [address] [id number] [address] [place] [address], [place] [address] Apr, [facility] [address] [id number] [address] [place] [address], [place] [address] Apr, [facility] [address] [id number] [facility] [place] [address] Apr, [facility] [address] [id number] [facility] [place] [address] Apr, [facility] [address] [id number] [facility] [place] [address] Apr, [facility] [address] [id number] [facility] [place] [address] Apr, [facility] [address] [id number] [facility] [place] [address] Apr, [facility] [address] [id number] [address] [place] [address], [place] [address] Apr, [facility] [address] [id number] [address] [place] [address], [place] [address] March, [facility] [address] [id number] [address] [place] [address], [place] [address] March, [facility] [address] [id number] [address] [place] [address], [place] [address] March, [facility] [address] [id number] [address] [place] [address], [place] [address] March, [facility] [address] [id number] [address] [place] [address], [place] [address] March, [facility] [address] [id number] [address] [place] [address], [place] [address] March, [facility] [address] [id number] [address] [place] [address], [place] [address] March, [facility] [address] [id number] [address] [place] [address], [place] [address] March, [facility] [address] [id number] [address] [place] [address], [place] [address] March, [facility] [address] [id number] [address] [place] [address], [place] [address] March, [facility] [address] [id number] [address] [place] [address], [place] [address] March, [facility] [address] [id number] [address] [place] [address], [place] [address] March, [facility] [address] [id number] [address] [place] [address], [place] [address] March, [facility] [address] [id number] [address] [place] [address], [place] [address] March, [facility] [address] [id number] [address] [place] [address], [place] [address] March, [facility] [address] [id number] [address] [place] [address], [place] [address] March, [facility] [address] [id number] [address] [place] [address], [place] [address] March, [facility] [address] [id number] [address] [place] [address], [place] [address] March, [facility] [address] [id number] [address] [place] [address], [place] [address] March, [facility] [address] [id number] [address] [place] [address], [place] [address] March, [facility] [address] [id number] [address] [place] [address], [place] [address] Feb, [facility] [address] [id number] [address] [place] [address], [place] [address] Feb, [facility] [address] [id number] [address] [place] [address], [place] [address] Feb, [facility] [address] [id number] [address] [place] [address], [place] [address] Feb, [facility] [address] [id number] [address] [place] [address], [place] [address] Feb, [facility] [address] [id number] [address] [place] [address], [place] [address] 17 Feb, 2014 [facility] [address] [id number] [facility] [place] [address] Feb, [facility] [address] [id number] [address] [place] [address], [place] [address] Feb, [facility] [address] [id number] [address] [place] [address], [place] [address] Jan, [facility] [address] [id number] [address] [place] [address], [place] [address] Jan, [facility] [address] [id number] [address] [place] [address], [place] [address] Jan, [facility] [address] [id number] [address] [place] [address], [place] [address] Jan, [facility] [address] [id number] [address] [place] [address], [place] [address] Jan, [facility] [address] [id number] [address] [place] [address], [place] [address] Jan, [facility] [address] [id number] [address] [place] [address], [place] [address] Jan, [facility] [address] [id number] [address] [place] [address], [place] [address] Jan, [facility] [address] [id number] [address] [place] [address], [place] [address] Jan, [facility] [address] [id number] [address] [place] [address], [place] [address] Jan, [facility] [address] [id number] [address] [place] [address], [place] [address] Dec, [facility] [address] [id number] [address] [place] [address], [place] [address] Dec, [facility] [address] [id number] [address] [place] [address], [place] [address] Dec, [facility] [address] [id number] [address] [place] [address], [place] [address] 2013 [facility] [address] [id number] [address] [place] [address], [place] [address] 2013 [facility] [address] [id number] [address] [place] [address], [place] [address] Dec, [facility] [address] [id number] [address] [place] [address], [place] [address] Dec, [facility] [address] [id number] [address] [place] [address], [place] [address] Dec, [facility] [address] [id number] [place] [address], [place] [address] Nov, [facility] [address] [id number] [address] [place] [address], [place] [address] Nov, [facility] [address] [id number] [address] [place] [address], [place] [address] Nov, [facility] [address] [id number] [address] [place] [address], [place] [address] Nov, [facility] [address] [id number] [address] [place] [address], [place] [address] Nov, [facility] [address] [id number] [address] [place] [address], [place] [address] Nov, [facility] [address] [id number] [address] [place] [address], [place] [address] Nov, [facility] [address] [id number] [address] [place] [address], [place] [address] Nov, [facility] [address] [id number] [address] [place] [address], [place] [address] Nov, [facility] [address] [id number] [address] [place] [address], [place] [address] Nov, [facility] [address] [id number] [address] [place] [address], [place] [address] Nov, [facility] [address] [id number] [address] [place] [address], [place] [address] Nov, [facility] [address] [id number] [address] [place] [address], [place] [address] Nov, [facility] [address] [id number] [address] [place] [address], [place] [address] Oct, [facility] [address] [id number] [address] [place] [address], [place] [address] Oct, [facility] [address] [id number] [address] [place] [address], [place] [address] Oct, [facility] [address] [id number] [address] [place] [address], [place] [address] Oct, [facility] [address] [id number] [address] [place] [address], [place] [address] Oct, [facility] [address] [id number] [address] [place] [address], [place] [address] Oct, [facility] [address] [id number] [address] [place] [address], [place] [address] Oct, [facility] [address] [id number] [address] [place] [address], [place] [address] Oct, [facility] [address] [id number] [address] [place] [address], [place] [address] Oct, [facility] [address] [id number] [address] [place] [address], [place] [address] Oct, [facility] [address] [id number] [address] [place] [address], [place] [address] Oct, [facility] [address] [id number] [address] [place] [address], [place] [address] Oct, [facility] [address] [id number] [address] [place] [address], [place] [address] Oct, [facility] [address] [id number] [address] [place] [address], [place] [address] Oct, [facility] [address] [id number] [address] [place] [address], [place] [address] Sep, [facility] [address] [id number] [address] [place] [address], [place] [address] Sep, [facility] [address] [id number] [address] [place] [address], [place] [address] 05 Sep, 2013 [facility] [address] [id number] [address] [place] [address], [place] [address] 05 Sep, 2013 [facility] [address] [id number] [address] [place] [address], [place] [address] Sep, [facility] [address] [id number] [address] [place] [address], [place] [address] Sep, [facility] [address] [id number] [address] [place] [address], [place] [address] Sep, [facility] [address] [id number] [address] [place] [address], [place] [address] Sep, [facility] [address] [id number] [address] [place] [address], [place] [address] Sep, [facility] [address] [id number] [address] [place] [address], [place] [address] Sep, [facility] [address] [id number] [address] [place] [address], [place] [address] Aug, [facility] [address] [id number] [address] [place] [address], [place] [address] Aug, [facility] [address] [id number] [address] [place] [address], [place] [address] Aug, [facility] [address] [id number] [address] [place] [address], [place] [address] Aug, [facility] [address] [id number] [address] [place] [address] [address] 23 Aug, 2013 [facility] [address] [id number] [address] [place] [address], [place] [address] 23 Aug, 2012 [facility] [address] [id number] [address] [place] [address], [place] [address] 23 Aug, 2013 [facility] [address] [id number] [address] [place] [address], [place] [address] 23 Aug, 2013 [facility] [address] [id number] [address] [place] [address], [place] [address] 22 Aug, 2012 [facility] [address] [id number] [address] [place] [address], [place] [address] 22 Aug, 2013 [facility] [address] [id number] [address] [place] [address], [place] [address] 18 Aug, 2013 [facility] [address] [id number] [address] [place] [address], [place] [address] 18 Aug, 2013 [facility] [address] [id number] [address] [place] [address], [place] [address] 18 Aug, 2013 [facility] [address] [id number] [address] [place] [address], [place] [address] 18 Aug, 2013 [facility] [address] [id number] [address] [place] [address] 17 Aug, 2013 [facility] [address] [id number] [address] [place] [address] 14 Aug, 2013 [facility] [address] [id number] [address] [place] [address] 14 Aug, 2013 [facility] [address] [id number] [address] [place] [address], [place] [address] Aug, [facility] [address] [id number] [address] [place] [address] 20 Jul, 2013 [facility] [address] [id number] [address] [place] [address] 19 Jul, 2013 [facility] [address] [id number] [address] [place] [address], [place] [address] 18 Jul, 2013 [facility] [address] [id number] [address] [place] [address], [place] [address] Jul, [facility] [address] [id number] [address] [place] [address], [place] [address] Jul, [facility] [address] [id number] [address] [place] [address], [place] [address] Jun, [facility] [address] [id number] [address] [place] [address], [place] [address] Jun, [facility] [address] [id number] [address] [place] [address], [place] [address] Jun, [facility] [address] [id number] [address] [place] [address], [place] [address] Jun, [facility] [address] [id number] [address] [place] [address], [place] [address] Jun, [facility] [address] [id number] [address] [place] [address], [place] [address] Jun, [facility] [address] [id number] [address] [place] [address], [place] [address] Jun, [facility] [address] [id number] [address] [place] [address], [place] [address] Jun, [facility] [address] [id number] [address] [place] [address], [place] [address] Jun, [facility] [address] [id number] [address] [place] [address], [place] [address] Jun, [facility] [address] [id number] [address] [place] [address], [place] [address] May, [facility] [address] [id number] [address] [place] [address], [place] [address] May, [facility] [address] [id number] [address] [place] [address], [place] [address] May, [facility] [address] [id number] [address] [place] [address], [place] [address] May, [facility] [address] [id number] [address] [place] [address], [place] [address] May, [facility] [address] [id number] [address] [place] [address], [place] [address] May, [facility] [address] [id number] [address] [place] [address], [place] [address] May, [facility] [address] [id number] [address] [place] [address], [place] [address] May, [facility] [address] [id number] [address] [place] [address], [place] [address] May, [facility] [address] [id number] [address] [place] [address], [place] [address] Apr, [facility] [address] [id number] [address] [place] [address], [place] [address] Apr, [facility] [address] [id number] [address] [place] [address], [place] [address] Apr, [facility] [address] [id number] [address] [place] [address], [place] [address] Apr, [facility] [address] [id number] [address] [place] [address], [place] [address] Apr, [facility] [address] [id number] [address] [place] [address], [place] [address] Apr, [facility] [address] [id number] [address] [place] [address], [place] [address] Apr, [facility] [address] [id number] [address] [place] [address], [place] [address] March, [facility] [address] [id number] [address] [place] [address], [place] [address] Feb, [facility] [address] [id number] [address] [place] [address], [place] [address] Feb, [facility] [address] [id number] [address] [place] [address], [place] [address] Feb, [facility] [address] [id number] [address] [place] [address], [place] [address] 28 Jan, 2013 [facility] [address] [id number] [address] [place] [address], [place] [address] 21 Jan, 2013 [facility] [address] [id number] [address] [place] [address], [place] [address] 19 Jan, 2013 [facility] [address] [id number] [address] [place] [address], [place] [address] 14 Jan, 2013 [facility] [address] [id number] [address] [place] [address], [place] [address] 12 Jan, 2013 [facility] [address] [id number] [address] [place] [address], [place] [address] 08 Jan, 2013 [facility] [address] [id number] [address] [place] [address], [place] [address] 07 Jan, 2013 [facility] [address] [id number] [address] [place] [address], [place] [address] 04 Jan, 2013 [facility] [address] [id number] [address] [place] [address], [place] [address] 28 Dec, 2012 [facility] [address] [id number] [address] [place] [address], [place] [address] 25 Dec, 2012 [facility] [address] [id number] [address] [place] [address], [place] [address] 13 Dec, 2012 [facility] [address] [id number] [address] [place] [address], [place] [address] 11 Dec, 2012 [facility] [address] [id number] [address] [place] [address], [place] [address] 07 Dec, 2012 [facility] [address] [id number] [address] [place] [address], [place] [address] 06 Dec, 2012 [facility] [address] [id number] [address] [place] [address], [place] [address] Dec, [facility] [address] [id number] [address] [place] [address], [place] [address] Nov, [facility] [address] [id number] [address] [place] [address], [place] [address] Nov, [facility] [address] [id number] [address] [place] [address], [place] [address] Nov, [facility] [address] [id number] [address] [place] [address], [place] [address] Nov, [facility] [address] [id number] [address] [place] [address], [place] [address] Nov, [facility] [address] [id number] [address] [place] [address], [place] [address] Nov, [facility] [address] [id number] [address] [place] [address], [place] [address] Nov, [facility] [address] [id number] [address] [place] [address], [place] [address] Oct, [facility] [address] [id number] [address] [place] [address], [place] [address] Oct, [facility] [address] [id number] [address] [place] [address], [place] [address] Oct, [facility] [address] [id number] [address] [place] [address], [place] [address] Oct, [facility] [address] [id number] [address] [place] [address], [place] [address] Oct, [facility] [address] [id number] [address] [place] [address], [place] [address] Oct, [facility] [address] [id number] [address] [place] [address], [place] [address] Oct, [facility] [address] [id number] [address] [address] Oct, [facility] [address] [id number] [address] [place] [address], [place] [address] Oct, [facility] [address] [id number] [address] [place] [address], [place] [address] Oct, [facility] [address] [id number] [address] [place] [address], [place] [address] Oct, [facility] [address] [id number] [address] [place] [address], [place] [address] Oct, [facility] [address] [id number] [address] [place] [address], [place] [address] Sep, [facility] [address] [id number] [address] [place] [address], [place] [address] Sep, [facility] [address] [id number] [address] [place] [address], [place] [address] Sep, [facility] [address] [id number] [address] [place] [address] Sep, [facility] [address] [id number] [address] [place] [address] Sep, [facility] [address] [id number] [address] [place] [address], [place] [address] Sep, [facility] [address] [id number] [address] [place] [address] Sep, [facility] [address] [id number] [address] [place] [address] Sep, [facility] [address] [id number] [address] [place] [address], [place] [address] Sep, [facility] [address] [id number] [address] [place] [address], [place] [address] Sep, [facility] [address] [id number] [address] [place] [address] Sep, [facility] [address] [id number] [address] [place] [address], [place] [address] Aug, [facility] [address] [id number] [address] [place] [address], [place] [address] Aug, [facility] [address] [id number] [address] [place] [address], [place] [address] Aug, [facility] [address] [id number] [address] [place] [address], [place] [address] Aug, [facility] [address] [id number] [address] [place] [address], [place] [address] Aug, [facility] [address] [id number] [address] [place] [address], [place] [address] Aug, [facility] [address] [id number] [address] [place] [address], [place] [address] Aug, [facility] [address] [id number] [address] [place] [address], [place] [address] Aug, [facility] [address] [id number] [address] [place] [address], [place] [address] Aug, [facility] [address] [id number] [address] [place] [address], [place] [address] Aug, [facility] [address] [id number] [address] [place] [address], [place] [address] Jul, [facility] [address] [id number] [address] [place] [address], [place] [address] 20 Jul, 2012 [facility] [address] [id number] [address] [place] [address], [place] [address] 10 Jul, 2012 [facility] [address] [id number] [address] [place] [address], [place] [address] 06 Jul, 2012 [facility] [address] [id number] [address] [place] [address], [place] [address] Jun, [facility] [address] [id number] [address] [place] [address], [place] [address] Jun, [facility] [address] [id number] [address] [place] [address], [place] [address] 16 Jun, 2012 [facility] [address] [id number] [address] [place] [address], [place] [address] Jun, [facility] [address] [id number] [address] [place] [address], [place] [address] Jun, [facility] [address] [id number] [address] [place] [address], [place] [address] Jun, [facility] [address] [id number] [address] [place] [address], [place] [address] Jun, [facility] [address] [id number] [address] [place] [address], [place] [address] May, [facility] [address] [id number] [address] [place] [address], [place] [address] May, [facility] [address] [id number] [address] [place] [address], [place] [address] May, [facility] [address] [id number] [address] [place] [address], [place] [address] May, [facility] [address] [id number] [address] [place] [address], [place] [address] May, [facility] [address] [id number] [address] [place] [address], [place] [address] Apr, [facility] [address] [id number] [address] [place] [address], [place] [address] Apr, [facility] [address] [id number] [address] [place] [address], [place] [address] Apr, [facility] [address] [id number] [address] [place] [address], [place] [address] Apr, [facility] [address] [id number] [address] [place] [address], [place] [address] Apr, [facility] [address] [id number] [address] [place] [address], [place] [address] March, [facility] [address] [id number] [address] [place] [address], [place] [address] March, [facility] [address] [id number] [address] [place] [address], [place] [address] March, [facility] [address] [id number] [address] [place] [address], [place] [address] March, [facility] [address] [id number] [address] [place] [address], [place] [address] March, [facility] [address] [id number] [address] [place] [address], [place] [address] March, [facility] [address] [id number] [address] [place] [address], [place] [address] March, [facility] [address] [id number] [address] [place] [address], [place] [address] March, [facility] [address] [id number] [address] [place] [address], [place] [address] March, [facility] [address] [id number] [address] [place] [address], [place] [address] March, [facility] [address] [id number] [address] [place] [address], [place] [address] 30 Feb, 2012 [facility] [address] [id number] [address] [place] [address], [place] [address] Feb, [facility] [address] [id number] [address] [place] [address], [place] [address] Feb, [facility] [address] [id number] [address] [place] [address], [place] [address] 19 Feb, 2012 [facility] [address] [id number] [address] [place] [address], [place] [address] 17 Feb, 2012 [facility] [address] [id number] [address] [place] [address], [place] [address] 17 Feb, 2012 [facility] [address] [id number] [address] [place] [address], [place] [address] Feb, [facility] [address] [id number] [address] [place] [address], [place] [address] Feb, [facility] [address] [id number] [address] [place] [address], [place] [address] Feb, [facility] [address] [id number] [address] [place] [address], [place] [address] 08 Jan, 2012 [facility] [address] [id number] [address] [place] [address], [place] [address] Jan, [facility] [address] [id number] [address] [place] [address], [place] [address] 05 Jan, 2012 [facility] [address] [id number] [address] [place] [address], [place] [address] Jan, [facility] [address] [id number] [address] [place] [address], [place] [address] Dec, [facility] [address] [id number] [address] [place] [address], [place] [address] Dec, [facility] [address] [id number] [address] [place] [address], [place] [address] Nov, [facility] [address] [id number] [address] [place] [address], [place] [address] Nov, [facility] [address] [id number] [address] [place] [address], [place] [address] Nov, [facility] [address] [id number] [address] [place] [address], [place] [address] 16 Nov, 2011 [facility] [address] [id number] [address] [place] [address], [place] [address] Nov, [facility] [address] [id number] [address] [place] [address], [place] [address] 30 Oct, 2011 [facility] [address] [id number] [address] [place] [address], [place] [address] Oct, [facility] [address] [id number] [address] [place] [address] Oct, [facility] [address] [id number] [address] [place] [address] Oct, [facility] [address] [id number] [address] [place] [phone] Oct, [facility] [address] [id number] [address] [place] [id number] Oct, [facility] [address] [id number] [address] [place] [phone] Oct, [facility] [address] [id number] [address] [place] [phone] Oct, [facility] [address] [id number] [address] [place] [phone] Sep, IMMUNIZATIONS No Known Immunizations SOCIAL HISTORY Never Assessed REASON FOR VISIT PLAN OF CARE VITAL SIGNS Height 62 in 2012-04-30 Weight 168 lbs 2012-04-30 Heart Rate 100 bpm 2012-04-30 Respiratory Rate 22 2012-04-30 Blood pressure systolic 162 mmHg 2012-04-30 Blood pressure diastolic 84 mmHg 2012-04-30 MEDICATIONS Unknown Medications RESULTS No Results PROCEDURES [...] History No Surgical history information Hospitalization History [facility], [place], operated by [facility]- Urosepsis, ab d pain and fever, discharged 11/27/2017 11/26/2017 Hospitalization History [facility] [place]- Went Unrepsonsive, Hit head 2017 Hospitalization History [facility] [place]- Back Pain 8
--- OUTSIDE RECORDS SUMMARY | 2020-06-18 14:40 | XMS REPORT ---
Author Author Sanjuanita Abdul Doctor Organization [facility] Address Unknown Phone Unavailable Care Team Providers Care [employer] Teacher Name Role Phone Migration, Doctor Unavailable Unavailable PROBLEMS Type Condition ICD9-CM Code TLR81-OJ Code Onset Dates Condition S tatus SNOMED Code Problem Hypertension I10 Active 8315182 3 Problem Hyperlipidemia E78.5 Active 51519 004 Problem Coronary artery disease I25.10 Active 34478821 Problem Low back pain M54.5 Active 967137 009 Problem Other chronic pain G89.29 Active 8 5773879 Problem Ventral hernia without obstruction or gangrene K43 .9 Active 748266760 Problem Type 2 diabetes mellitus wit hout complication, without long-term current use of insulin E11.9 Active 204940548 Problem Anxiety F41.9 Active 69774287 Problem Peripheral vascular disease I73.9 Ac tive 499317663 Problem Insomnia G47.00 Active 356383928 Problem Microcytic anemia D50.9 Active 23 1594279 Problem Pharyngeal dysphagia R13.13 Active 12557075373402 Problem Other iron deficiency anemia D50.8 A ctive 19443848 Problem Reactive depression F32.9 Active 22719997 Problem Paroxysmal atrial fibrillation I48.0 Active 988989586 Problem 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 Active 78091353 Problem Encounter for suprapubic catheter care Z43.5 Active 792867277 Problem Neurogenic bladder N31.9 Active 3 [id number] ALLERGIES No Information ENCOUNTERS Encounter Location Date Diagnosis [facility] [address] [facility] [id number] [address] [place] [address] Feb, Anxiety F41.9 and Strain of right shoulder, subsequent encounter S46.911D [facility] [address] [facility] [id number] [address] [place] [address] 24 Jan, 2020 Anxiety F41.9 and Strain of right shoulder, subsequent encounter S46.911D [facility] [address] [facility] [id number] [address] [place] [address] Jan, Via [facility] [address] [place] [id number] Jan, Neurogenic bladder N31.9 [place] [address] [id number] [address] [place] [address] Dec, [place] [address] [id number] [address] [place] [address] Dec, [place] [address] [id number] [address] [place] [address] Dec, Anxiety F41.9 and Strain of right shoulder, subsequent encounter S46.911D [place] [address] [id number] [address] [place] [address] 10 Dec, 2019 Other iron deficiency anemia D50.8 [place] [address] [id number] [address] [place] [address] 04 Dec, 2019 [facility] [employer] [facility] [address] [place] [id number] 04 Dec, 2019 Encounter for suprapubic catheter care Z 43.5 and Microcytic anemia D50.9 [place] [address] [id number] [address] [place] [address] 03 Dec, 2019 [place] [address] [id number] [address] [place] [address] Nov, Anxiety F41.9 and Strain of right shoulder, subsequent encounter S46.911D [place] [address] [id number] [address] [place] [address] Nov, Hypertension I10 [facility] [address] [place] [id number] Nov, Pneumonia of both lungs due to infectiou s organism, unspecified part of lung J18.9 and Suprapubic catheter Z93.59 [place] [address] [id number] [address] [place] [address] Nov, Hypertension I10 and Reactiv e depression F32.9 [facility] [address] [id number] [address] [place] [address] Oct, Strain of right shoulder, scherer bsequent encounter S46.911D and Anxiety F41.9 [facility] [address] [id number] [address] [place] [address] Oct, Via [facility] [address] [place] [id number] Oct, Suprapubic catheter Z93.59 and Candidias is, intertriginous B37.2 [facility] [address] [id number] [address] [place] [address] Oct, Suprapubic catheter Z93.59 [facility] [address] [id number] [address] [place] [address] Oct, Anxiety F41.9 and Strain of right shoulder, subsequent encounter S46.911D [facility] [address] [id number] [address] [place] [address] Sep, [facility] [address] [id number] [address] [place] [address] Sep, [facility] [address] [id number] [address] [place] [address] Sep, Via [facility] [address] [place] [id number] Sep, Suprapubic catheter Z93.59 [facility] [address] [id number] [address] [place] [address] Sep, Anxiety F41.9 and Strain of right shoulder, subsequent encounter S46.911D [facility] [address] [id number] [address] [place] [address] Aug, [facility] [address] [id number] [address] [place] [address] Aug, [facility] [address] [id number] [address] [place] [address] Aug, Anxiety F41.9 and Strain of right shoulder, subsequent encounter S46.911D [facility] [address] [place] [id number] Aug, Suprapubic catheter Z93.59 [facility] [address] [id number] [address] [place] [address] Jul, Strain of right shoulder, scherer bsequent encounter S46.911D and Anxiety F41.9 [facility] [address] [id number] [address] [place] [address] Jul, Anxiety F41.9 [facility] [address] [id number] [address] [place] [address] Jun, [facility] [address] [id number] [address] [place] [address] Jun, [facility] [address] [id number] [address] [place] [address] Jun, [facility] [address] [id number] [address] [place] [address] Jun, Strain of right shoulder, scherer bsequent encounter S46.911D [facility] [address] [id number] [address] [place] [address] Jun, Strain of right shoulder, scherer bsequent encounter S46.911D [facility] [address] [id number] [address] [place] [address] Jun, Anxiety F41.9 Via [facility] [address] [place] [id number] Jun, Neurogenic bladder N31.9 and Anxiety F41 .9 [facility] [address] [place] [id number] May, Anxiety F41.9 [facility] [address] [id number] [address] [place] [address] May, Dysuria R30.0 [facility] [address] [id number] [address] [place] [address] May, Strain of right shoulder, scherer bsequent encounter S46.911D and Anxiety F41.9 [place] [address] [id number] [address] [place] [address] Apr, Via [facility] [address] [place] [id number] Apr, Strain of right shoulder, subsequent enc ounter S46.911D [place] [address] [facility] [id number] [address] [place] [address] 14 Apr, 2019 Strain of right shoulder, scherer bsequent encounter S46.911D and Anxiety F41.9 [facility] [address] [place] [id number] Apr, Type 2 diabetes mellitus without complic ation, without long-term current use of insulin E11.9 and Neurogenic bladder N31.9 [facility] [address] [place] [address] Apr, Strain of right shoulder, subsequent enc ounter S46.911D ; History of GI bleed Z87.19 ; Neurogenic bladder N31.9 and Reactive depression F32.9 [place] [address] [facility] [id number] [address] [place] [address] Apr, Acute pain of left shoulder M25.512 [place] [address] [id number] [address] [place] [address] Apr, [place] [address] [id number] [address] [place] [address] Apr, Anxiety F41.9 and 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 [facility] [address] [place] [id number] March, Gastrointestinal hemorrhage associated w ith acute gastritis K29.01 [place] [address] [id number] [address] [place] [address] March, Via [facility] [address] [place] [id number] March, Bronchitis J40 [facility] [address] [id number] [address] [place] [address] March, Cough R05 [facility] [address] [id number] [address] [place] [address] March, Other chronic pain G89.29 [facility] [address] [id number] [address] [place] [address] March, Anxiety F41.9 [facility] [address] [id number] [address] [place] [address] March, [facility] [address] [id number] [address] [place] [address] Feb, Other chronic pain G89.29 [facility] [address] [id number] [address] [place] [address] Feb, Anxiety F41.9 [facility] [address] [id number] [address] [place] [address] Feb, Other chronic pain G89.29 [facility] [address] [place] [address] Feb, Neurogenic bladder N31.9 and Suprapubic catheter Z93.59 [facility] [address] [id number] [address] [place] [address] Jan, Anxiety F41.9 [facility] [address] [id number] [address] [place] [address] Dec, Anxiety F41.9 [facility] [address] [id number] [address] [place] [address] Dec, Other chronic pain G89.29 an d Anxiety F41.9 [facility] [address] [id number] [address] [place] [address] Dec, Via [facility] [address] [place] [id number] Dec, Neurogenic bladder N31.9 and Suprapubic catheter Z93.59 [facility] [address] [id number] [address] [place] [address] Nov, Other chronic pain G89.29 an d Anxiety F41.9 [facility] [address] [id number] [address] [place] [address] Nov, Via [facility] [address] [place] [id number] Nov, Suprapubic catheter Z93.59 [facility] [address] [id number] [address] [place] [address] Oct, Other chronic pain G89.29 an d Anxiety F41.9 [facility] [address] [id number] [address] [place] [address] Oct, [facility] [address] [id number] [address] [place] [address] Oct, Suprapubic catheter Z93.59 [facility] [address] [id number] [address] [place] [address] Oct, Via [facility] [address] [place] [id number] Oct, [facility] [address] [id number] [address] [place] [address] Oct, Anxiety F41.9 [facility] [address] [id number] [address] [place] [address] Oct, Anxiety F41.9 Via [facility] [address] [place] [address] Oct, Other chronic pain G89.29 [facility] [address] [id number] [address] [place] [address] Sep, Other chronic pain G89.29 Via [facility] [address] [place] [id number] Sep, Suprapubic catheter Z93.59 and Cervicalg ia M54.2 [facility] [address] [id number] [address] [place] [address] Sep, [facility] [address] [id number] [address] [place] [address] Sep, [facility] [address] [id number] [address] [place] [address] Sep, Via [facility] [address] [place] [id number] Aug, Cystitis N30.90 [facility] [address] [id number] [address] [place] [address] Aug, [facility] [address] [id number] [address] [place] [address] Aug, Other chronic pain G89.29 [facility] [address] [id number] [address] [place] [address] Aug, [facility] [employer] [address] [place] [id number] Aug, Encounter for suprapubic catheter care Z 43.5 [facility] [address] [id number] [address] [place] [address] Jul, Via [facility] [facility] [address] [place] [id number] Jul, [facility] [address] [id number] [address] [place] [address] Jul, Other chronic pain G89.29 [facility] [address] [id number] [address] [place] [address] Jul, [facility] [address] [id number] [address] [place] [address] Jul, Via [facility] [address] [place] [id number] Jun, 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 [facility] [address] [id number] [address] [place] [address] Jun, Other chronic pain G89.29 [facility] [address] [id number] [address] [place] [address] Jun, [facility] [employer] [address] [place] [address] May, Anxiety F41.9 ; Type 2 diabetes mellitus without complication, without long-term current use of insulin E11.9 ; Hypertension I10 ; Low back pain M54.5 ; Paroxysmal atrial fibrillation I48.0 and 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 [facility] [address] [id number] [address] [place] [address] May, Other chronic pain G89.29 Via [facility] [address] [place] [id number] May, Low back pain M54.5 [facility] [address] [id number] [address] [place] [address] May, [facility] [address] [id number] [address] [place] [address] Apr, Other chronic pain G89.29 [facility] [address] [id number] [address] [place] [address] Apr, [facility] [address] [id number] [address] [place] [address] Apr, Via [employer] [facility] [facility] [address] [place] [address] Apr, Closed compression fracture of L3 lumbar vertebra with routine healing, subsequent encounter S32.030D [facility] [employer] [facility] [address] [place] [address] 14 Apr, 2018 Low back pain M54.5 [facility] [employer] [facility] [address] [place] [address] Apr, Coccydynia M53.3 [facility] [address] [id number] [address] [place] [address] March, [facility] [address] [id number] [address] [place] [address] March, Other chronic pain G89.29 [place] [address] [id number] [address] [place] [address] March, [facility] [address] [id number] [address] [place] [address] March, [facility] [address] [id number] [address] [place] [address] Feb, [facility] [address] [facility] [id number] [address] [place] [address] Feb, Other chronic pain G89.29 [facility] [address] [place] [id number] Feb, Other chronic pain G89.29 and Anxiety F4 1.9 [facility] [address] [facility] [id number] [address] [place] [address] Feb, [facility] [address] [facility] [id number] [address] [place] [address] Jan, [facility] [address] [facility] [id number] [address] [place] [address] Jan, [facility] [address] [facility] [id number] [address] [place] [address] Jan, [facility] [address] [facility] [id number] [address] [place] [address] Jan, [facility] [address] [facility] [id number] [address] [place] [address] Dec, Via [facility] [address] [place] [address] Dec, Peripheral vascular disease I73.9 ; 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 ; Other chronic pain G89.29 ; Anxiety F41.9 ; Reactive depression F32.9 ; Insomnia G47.00 and Type 2 diabetes mellitus without complication, without long-term current use of insulin E11.9 [facility] [place] [address] [id number] [address] Nov, [facility] [place] [address] [id number] [place] [id number] Nov, Anxiety F41.9 [facility] [address] [id number] [address] [place] [address] Nov, [facility] [place] [address] [id number] [place] [id number] Nov, Anxiety F41.9 [facility] [address] [place] [id number] Nov, Status post surgery Z98.890 ; Confused R 41.0 ; Anxiety F41.9 and Other chronic pain G89.29 [facility] [place] [address] [id number] [place] [id number] Nov, Other chronic pain G89.29 [facility] [address] [facility] [id number] [address] [place] [address] Oct, [facility] [place] [address] [id number] [place] [address] Oct, Other chronic pain G89.29 [facility] [address] [id number] [address] [place] [address] Oct, Anxiety F41.9 [facility] [place] [address] [id number] [place] [id number] Sep, Other chronic pain G89.29 [facility] [place] [address] [id number] [place] [id number] Sep, [facility] [address] [place] [address] Aug, Dysuria R30.0 and Anxiety F41.9 [facility] [address] [id number] [address] [place] [address] Aug, [facility] [place] [address] [id number] [place] [id number] Aug, Other chronic pain G89.29 [facility] [address] [id number] [address] [place] [address] Jul, Other chronic pain G89.29 [facility] [place] [address] [id number] [place] [id number] Jun, [facility] [place] [address] [id number] [place] [facility] [place] [id number] Jun, Other chronic pain G89.29 [facility] [address] [facility] [id number] [address] [place] [address] Jun, [facility] [address] [id number] [address] [place] [address] May, Other chronic pain G89.29 [facility] [address] [facility] [id number] [address] [place] [address] Apr, Other chronic pain G89.29 [facility] [employer] [facility] [place] [facility] [address] [place] [id number] Apr, Reactive depression F32.9 and Pharyngeal dysphagia R13.13 [place] [address] [facility] [id number] [address] [place] [address] Apr, Urinary tract infection with out hematuria, site unspecified N39.0 [place] [address] [facility] [id number] [address] [place] [address] March, Other chronic pain G89.29 [place] [address] [facility] [id number] [address] [place] [address] Feb, Other chronic pain G89.29 [facility] [address] [id number] [address] [place] [address] Feb, [facility] [place] [address] [id number] [place] [id number] Feb, [facility] [employer] [address] [place] [address] Feb, Dysuria R30.0 and Ventral hernia without obstruction or gangrene K43.9 [place] [address] [facility] [id number] [address] [place] [address] Jan, Other chronic pain G89.29 [facility] [id number] [place] [id number] Dec, Other chronic pain G89.29 [facility] [address] [id number] [address] [place] [address] Nov, Other chronic pain G89.29 [facility] [address] [place] [id number] Nov, Lymphadenitis I88.9 [facility] [address] [id number] [address] [place] [phone] Nov, Other chronic pain G89.29 [facility] [address] [id number] [address] [place] [phone] Nov, [facility] [place] [address] [id number] [place] [id number] Nov, Other chronic pain G89.29 [facility] [address] [place] [id number] Oct, Low back pain M54.5 ; Hypertension I10 a nd Type 2 diabetes mellitus without complication, without long-term current use of insulin E11.9 [facility] [address] [id number] [address] [place] [id number] Oct, [facility] [address] [id number] [address] [place] [phone] Oct, [facility] [address] [id number] [address] [place] [phone] Oct, [facility] [address] [id number] [address] [place] [phone] Oct, [facility] [address] [id number] [address] [place] [phone] Sep, [facility] [address] [id number] [address] [place] [id number] Sep, [facility] [address] [id number] [address] [place] [id number] Aug, Other chronic pain G89.29 [facility] [address] [id number] [address] [place] [phone] Jul, [facility] [address] [id number] [address] [place] [id number] Jul, [facility] [address] [id number] [address] [place] [id number] Jul, [facility] [address] [id number] [address] [place] [id number] Jun, [facility] [address] [id number] [address] [place] [phone] Jun, [facility] [address] [place] [id number] Jun, Low back pain M54.5 ; Other chronic pain G89.29 and Coronary artery disease I25.10 [facility] [address] [id number] [address] [place] [id number] Jun, [facility] [address] [id number] [address] [place] [id number] May, [facility] [address] [id number] [address] [place] [phone] May, [facility] [address] [id number] [address] [place] [phone] May, Other chronic pain G89.29 [facility] [address] [id number] [address] [place] [id number] May, [facility] [address] [id number] [address] [place] [phone] Apr, [facility] [address] [facility] [id number] [address] [place] [address] 17 Apr, 2016 Acute cystitis without hemat uria N30.00 [facility] [address] [id number] [address] [place] [address] Apr, Acute cystitis without hemat uria N30.00 ; Coronary artery disease I25.10 ; Low back pain M54.5 and Other chronic pain G89.29 [facility] [address] [id number] [address] [place] [address] Apr, Other chronic pain G89.29 [facility] [address] [id number] [address] [place] [address] March, Other chronic pain G89.29 [facility] [address] [id number] [address] [place] [address] 18 Feb, 2016 [facility] [address] [id number] [address] [place] [address] Feb, Arthritis M19.90 [facility] [address] [id number] [address] [place] [address] Feb, [facility] [address] [id number] [address] [place] [address] Jan, [facility] [address] [id number] [address] [place] [address] Jan, [facility] [address] [id number] [address] [place] [address] Jan, Other chronic pain G89.29 [facility] [address] [id number] [address] [place] [address] Jan, Hypertension I10 ; Coronary artery disease I25.10 and Insomnia G47.00 [facility] [address] [id number] [address] [place] [address] Jan, [facility] [address] [id number] [address] [place] [address] Dec, Right hip pain M25.551 [facility] [address] [id number] [address] [place] [address] Dec, [facility] [address] [facility] [id number] [address] [place] [address] Dec, [facility] [address] [id number] [address] [place] [address] Dec, [facility] [address] [id number] [address] [place] [address] Dec, Other chronic pain G89.29 [facility] [address] [id number] [address] [place] [address] Dec, [facility] [address] [id number] [address] [place] [address] Nov, [facility] [address] [id number] [address] [place] [address] Nov, Other chronic pain G89.29 [facility] [address] [id number] [address] [place] [address] Nov, Right hip pain M25.551 and C oronary artery disease I25.10 [facility] [address] [id number] [address] [place] [address] Nov, Other chronic pain G89.29 [facility] [address] [id number] [address] [place] [address] Oct, [facility] [address] [id number] [address] [place] [address] Oct, [facility] [address] [id number] [address] [place] [address] Sep, [facility] [address] [id number] [address] [place] [address] Sep, [facility] [address] [facility] [id number] [address] [place] [address] Aug, [facility] [address] [facility] [id number] [address] [place] [address] Aug, Hypertension I10 ; Coronary artery disease I25.10 and Arthritis M19.90 [facility] [address] [id number] [address] [place] [address], [place] [address] Jun, [facility] [address] [id number] [address] [place] [address], [place] [address] Jun, Essential hypertension, jayson gn 401.1 ; Other chronic pain 338.29 and Chronic airway obstruction, not elsewhere classified 496 [facility] [address] [id number] [address] [place] [address], [place] [address] Jun, [facility] [address] [id number] [address] [place] [address] Jun, [facility] [address] [id number] [address] [place] [address], [place] [address] Jun, [facility] [address] [id number] [address] [place] [address], [place] [address] May, [facility] [address] [id number] [address] [place] [address] May, [facility] [address] [id number] [address] [place] [address] Apr, [facility] [address] [id number] [address] [place] [address] Apr, [facility] [address] [id number] [address] [place] [address], [place] [address] Apr, [facility] [address] [id number] [address] [place] [address] March, [facility] [address] [id number] [address] [place] [address] March, [facility] [address] [id number] [address] [place] [address], [place] [address] March, [facility] [address] [id number] [address] [place] [address] March, [facility] [address] [id number] [address] [place] [address], [place] [address] March, Sialadenitis 527.2 [facility] [address] [id number] [address] [place] [address], [place] [address] Feb, [facility] [address] [id number] [address] [place] [address], [place] [address] Feb, [facility] [address] [id number] [address] [place] [address], [place] [address] Feb, [facility] [address] [id number] [address] [place] [address], [place] [address] 14 Feb, 2015 [facility] [address] [id number] [address] [place] [address], [place] [address] Feb, [facility] [address] [id number] [address] [place] [address], [place] [address] Jan, [facility] [address] [id number] [address] [place] [address], [place] [address] Jan, [facility] [address] [id number] [address] [place] [address], [place] [address] Jan, [facility] [address] [id number] [address] [place] [address], [place] [address] Jan, [facility] [address] [id number] [address] [place] [address], [place] [address] Jan, [facility] [address] [id number] [address] [place] [address], [place] [address] Jan, [facility] [address] [id number] [address] [place] [address], [place] [address] Dec, 2014 [facility] [address] [id number] [address] [place] [address], [place] [address] Dec, [facility] [address] [id number] [address] [place] [address], [place] [address] Dec, [facility] [address] [id number] [address] [place] [address], [place] [address] Dec, 2014 [facility] [address] [id number] [address] [place] [address] Dec, [facility] [address] [id number] [address] [place] [address], [place] [address] Dec, [facility] [address] [id number] [address] [place] [address] Nov, [facility] [address] [id number] [address] [place] [address], [place] [address] Nov, [facility] [address] [id number] [address] [place] [address], [place] [address] Nov, [facility] [address] [id number] [address] [place] [address], [place] [address] Nov, [facility] [address] [id number] [address] [place] [address], [place] [address] Nov, [facility] [address] [id number] [address] [place] [address] Nov, [facility] [address] [id number] [address] [place] [address], [place] [address] Nov, [facility] [address] [id number] [address] [place] [address], [place] [address] Nov, [facility] [address] [id number] [address] [place] [address] Nov, [facility] [address] [id number] [address] [place] [address], [place] [address] Nov, [facility] [address] [id number] [address] [place] [address] Nov, [facility] [address] [id number] [address] [place] [address] Nov, [facility] [address] [id number] [address] [place] [address] Nov, [facility] [address] [id number] [address] [place] [address], [place] [address] Nov, [facility] [address] [id number] [address] [place] [address], [place] [address] Oct, [facility] [address] [id number] [address] [place] [address], [place] [address] Oct, [facility] [address] [id number] [address] [place] [address], [place] [address] Oct, [facility] [address] [id number] [address] [place] [address], [place] [address] 18 Oct, 2014 [facility] [address] [id number] [address] [place] [address], [place] [address] 18 Oct, 2014 [facility] [address] [id number] [address] [place] [address], [place] [address] Oct, [facility] [address] [id number] [address] [place] [address], [place] [address] Oct, [facility] [address] [id number] [address] [place] [address], [place] [address] Oct, [facility] [address] [id number] [address] [place] [address], [place] [address] Oct, [facility] [address] [id number] [address] [place] [address], [place] [address] Sep, [facility] [address] [id number] [address] [place] [address], [place] [address] Sep, [facility] [address] [id number] [address] [place] [address], [place] [address] Sep, [facility] [address] [id number] [address] [place] [address], [place] [address] Sep, [facility] [address] [id number] [address] [place] [address], [place] [address] Sep, [facility] [address] [id number] [address] [place] [address], [place] [address] Sep, [facility] [address] [id number] [address] [place] [address], [place] [address] Sep, [facility] [address] [id number] [address] [place] [address], [place] [address] Sep, [facility] [address] [id number] [address] [place] [address], [place] [address] Sep, [facility] [address] [id number] [address] [place] [address], [place] [address] Sep, [facility] [address] [id number] [address] [place] [address], [place] [address] Sep, [facility] [address] [id number] [address] [place] [address], [place] [address] Sep, [facility] [address] [id number] [address] [place] [address], [place] [address] Aug, [facility] [address] [id number] [address] [place] [address], [place] [address] Aug, [facility] [address] [id number] [address] [place] [address], [place] [address] Aug, [facility] [address] [id number] [address] [place] [address], [place] [address] Aug, [facility] [address] [id number] [address] [place] [address], [place] [address] Aug, [facility] [address] [id number] [address] [place] [address], [place] [address] Aug, [facility] [address] [id number] [address] [place] [address] Aug, [facility] [address] [id number] [address] [place] [address], [place] [address] Aug, [facility] [address] [id number] [address] [place] [address], [place] [address] 30 Jul, 2014 [facility] [address] [id number] [address] [place] [address], [place] [address] 30 Jul, 2014 [facility] [address] [id number] [facility] [address] 30 Jul, 2013 [facility] [address] [id number] [address] [place] [address], [place] [address] 30 Jul, 2013 [facility] [address] [id number] [facility] [address] 25 Jul, 2013 [facility] [address] [id number] [address] [place] [address], [place] [address] 25 Jul, 2013 [facility] [address] [id number] [address] [place] [address], [place] [address] 15 Jul, 2013 [facility] [address] [id number] [address] [place] [address], [place] [address] 15 Jul, 2013 [facility] [address] [id number] [address] [place] [address], [place] [address] 11 Jul, 2014 [facility] [address] [id number] [address] [place] [address], [place] [address] Jul, 2013 [facility] [address] [id number] [address] [place] [address], [place] [address] Jun, [facility] [address] [id number] [address] [place] [address], [place] [address] Jun, [facility] [address] [id number] [address] [place] [address], [place] [address] Jun, [facility] [address] [id number] [address] [place] [address], [place] [address] Jun, [facility] [address] [id number] [address] [place] [address], [place] [address] Jun, [facility] [address] [id number] [address] [place] [address], [place] [address] Jun, [facility] [address] [id number] [address] [place] [address], [place] [address] Jun, [facility] [address] [id number] [address] [place] [address], [place] [address] Jun, [facility] [address] [id number] [facility] [address] Jun, [facility] [address] [id number] [facility] [address] Jun, [facility] [address] [id number] [facility] [address] Jun, [facility] [address] [id number] [address] [place] [address], [place] [address] Jun, [facility] [address] [id number] [address] [place] [address], [place] [address] Jun, [facility] [address] [id number] [address] [place] [address], [place] [address] Jun, [facility] [address] [id number] [address] [place] [address], [place] [address] Jun, [facility] [address] [id number] [address] [place] [address], [place] [address] Jun, [facility] [address] [id number] [address] [place] [address], [place] [address] Jun, [facility] [address] [id number] [address] [place] [address], [place] [address] Jun, [facility] [address] [id number] [address] [place] [address], [place] [address] Jun, [facility] [address] [id number] [address] [place] [address], [place] [address] Jun, [facility] [address] [id number] [address] [place] [address], [place] [address] Jun, [facility] [address] [id number] [address] [place] [address], [place] [address] Jun, [facility] [address] [id number] [address] [place] [address], [place] [address] May, [facility] [address] [id number] [address] [place] [address], [place] [address] May, [facility] [address] [id number] [facility] [address] May, [facility] [address] [id number] [address] [place] [address], [place] [address] May, [facility] [address] [id number] [facility] [address] May, [facility] [address] [id number] [address] [place] [address], [place] [address] May, [facility] [address] [id number] [address] [place] [address], [place] [address] May, [facility] [address] [id number] [address] [place] [address], [place] [address] May, [facility] [address] [id number] [address] [place] [address], [place] [address] May, [facility] [address] [id number] [address] [place] [address], [place] [address] May, [facility] [address] [id number] [address] [place] [address], [place] [address] May, [facility] [address] [id number] [address] [place] [address], [place] [address] May, [facility] [address] [id number] [address] [place] [address], [place] [address] May, [facility] [address] [id number] [address] [place] [address], [place] [address] Apr, [facility] [address] [id number] [address] [place] [address], [place] [address] Apr, [facility] [address] [id number] [address] [place] [address], [place] [address] Apr, [facility] [address] [id number] [address] [place] [address], [place] [address] Apr, [facility] [address] [id number] [facility] [address] Apr, [facility] [address] [id number] [facility] [address] Apr, [facility] [address] [id number] [facility] [address] Apr, [facility] [address] [id number] [facility] [address] Apr, [facility] [address] [id number] [facility] [address] Apr, [facility] [address] [id number] [address] [place] [address], [place] [address] March, [facility] [address] [id number] [address] [place] [address], [place] [address] March, [facility] [address] [id number] [address] [place] [address], [place] [address] March, [facility] [address] [id number] [address] [place] [address], [place] [address] March, [facility] [address] [id number] [address] [place] [address], [place] [address] March, [facility] [address] [id number] [address] [place] [address], [place] [address] March, [facility] [address] [id number] [address] [place] [address], [place] [address] March, [facility] [address] [id number] [address] [place] [address], [place] [address] March, [facility] [address] [id number] [address] [place] [address], [place] [address] March, [facility] [address] [id number] [address] [place] [address], [place] [address] March, [facility] [address] [id number] [address] [place] [address], [place] [address] March, [facility] [address] [id number] [address] [place] [address], [place] [address] March, [facility] [address] [id number] [address] [place] [address], [place] [address] March, [facility] [address] [id number] [address] [place] [address], [place] [address] March, [facility] [address] [id number] [address] [place] [address], [place] [address] March, [facility] [address] [id number] [address] [place] [address], [place] [address] March, [facility] [address] [id number] [address] [place] [address], [place] [address] March, [facility] [address] [id number] [address] [place] [address], [place] [address] March, [facility] [address] [id number] [address] [place] [address], [place] [address] March, [facility] [address] [id number] [address] [place] [address], [place] [address] March, [facility] [address] [id number] [address] [place] [address], [place] [address] Feb, [facility] [address] [id number] [address] [place] [address], [place] [address] Feb, [facility] [address] [id number] [address] [place] [address], [place] [address] Feb, [facility] [address] [id number] [address] [place] [address], [place] [address] Feb, [facility] [address] [id number] [address] [place] [address], [place] [address] Feb, [facility] [address] [id number] [address] [place] [address], [place] [address] Feb, [facility] [address] [id number] [address] [place] [address], [place] [address] Feb, [facility] [address] [id number] [address] [place] [address], [place] [address] Feb, [facility] [address] [id number] [address] [place] [address], [place] [address] Jan, [facility] [address] [id number] [address] [place] [address], [place] [address] Jan, [facility] [address] [id number] [address] [place] [address], [place] [address] Jan, [facility] [address] [id number] [address] [place] [address], [place] [address] Jan, [facility] [address] [id number] [address] [place] [address], [place] [address] Jan, [facility] [address] [id number] [address] [place] [address], [place] [address] Jan, [facility] [address] [id number] [address] [place] [address], [place] [address] Jan, [facility] [address] [id number] [address] [place] [address], [place] [address] Jan, [facility] [address] [id number] [address] [place] [address], [place] [address] Jan, [facility] [address] [id number] [address] [place] [address], [place] [address] Jan, [facility] [address] [id number] [address] [place] [address], [place] [address] Dec, [facility] [address] [id number] [address] [place] [address], [place] [address] Dec, [facility] [address] [address] [id number] [address] [place] [address], [place] [address] Dec, [facility] [address] [id number] [address] [place] [address], [place] [address] 2013 [facility] [address] [id number] [address] [place] [address] [address] 2013 [facility] [address] [id number] [address] [place] [address], [place] [address] Dec, [facility] [address] [id number] [address] [place] [address], [place] [address] Dec, [facility] [address] [id number] [address] [place] [address], [place] [address] Dec, [facility] [address] [id number] [address] [place] [address], [place] [address] Nov, [facility] [address] [id number] [address] [place] [address], [place] [address] Nov, [facility] [address] [id number] [address] [place] [address], [place] [address] Nov, [facility] [address] [id number] [address] [place] [address], [place] [address] Nov, [facility] [address] [id number] [address] [place] [address], [place] [address] Nov, [facility] [address] [id number] [address] [place] [address], [place] [address] Nov, [facility] [address] [id number] [address] [place] [address], [place] [address] Nov, [facility] [address] [id number] [address] [place] [address], [place] [address] Nov, [facility] [address] [id number] [address] [place] [address], [place] [address] Nov, [facility] [address] [id number] [address] [place] [address], [place] [address] Nov, [facility] [address] [id number] [address] [place] [address], [place] [address] Nov, [facility] [address] [id number] [address] [place] [address], [place] [address] 15 Nov, 2013 [facility] [address] [id number] [address] [place] [address], [place] [address] 15 Nov, 2013 [facility] [address] [id number] [address] [place] [address], [place] [address] Oct, [facility] [address] [id number] [address] [place] [address], [place] [address] Oct, [facility] [address] [id number] [address] [place] [address], [place] [address] Oct, [facility] [address] [id number] [address] [place] [address], [place] [address] Oct, [facility] [address] [id number] [address] [place] [address], [place] [address] Oct, [facility] [address] [id number] [address] [place] [address], [place] [address] Oct, [facility] [address] [id number] [address] [place] [address], [place] [address] Oct, [facility] [address] [id number] [address] [place] [address], [place] [address] Oct, [facility] [address] [id number] [address] [place] [address], [place] [address] Oct, [facility] [address] [id number] [address] [place] [address], [place] [address] Oct, [facility] [address] [id number] [address] [place] [address], [place] [address] Oct, [facility] [address] [id number] [address] [place] [address], [place] [address] Oct, [facility] [address] [id number] [address] [place] [address], [place] [address] Oct, [facility] [address] [id number] [address] [place] [address], [place] [address] Oct, [facility] [address] [id number] [address] [place] [address], [place] [address] 14 Sep, 2013 [facility] [address] [id number] [address] [place] [address], [place] [address] 14 Sep, 2013 [facility] [address] [id number] [address] [place] [address], [place] [address] 05 Sep, 2013 [facility] [address] [id number] [address] [place] [address], [place] [address] 05 Sep, 2013 [facility] [address] [id number] [address] [place] [address], [place] [address] Sep, [facility] [address] [id number] [address] [place] [address], [place] [address] Sep, [facility] [address] [id number] [address] [place] [address], [place] [address] Sep, [facility] [address] [id number] [address] [place] [address], [place] [address] Sep, [facility] [address] [id number] [address] [place] [address], [place] [address] Sep, [facility] [address] [id number] [address] [place] [address], [place] [address] Sep, [facility] [address] [id number] [address] [place] [address], [place] [address] Aug, [facility] [address] [id number] [address] [place] [address], [place] [address] Aug, [facility] [address] [id number] [address] [place] [address], [place] [address] Aug, [facility] [address] [id number] [address] [place] [address], [place] [address] Aug, [facility] [address] [id number] [address] [place] [address], [place] [address] Aug, [facility] [address] [id number] [address] [place] [address], [place] [address] 23 Aug, 2013 [facility] [address] [id number] [address] [place] [address], [place] [address] 23 Aug, 2013 [facility] [address] [id number] [address] [place] [address], [place] [address] 23 Aug, 2013 [facility] [address] [id number] [address] [place] [address], [place] [address] 22 Aug, 2013 [facility] [address] [id number] [address] [place] [address], [place] [address] 22 Aug, 2013 [facility] [address] [id number] [address] [place] [address], [place] [address] 18 Aug, 2013 [facility] [address] [id number] [address] [place] [address], [place] [address] 18 Aug, 2013 [facility] [address] [id number] [address] [place] [address], [place] [address] 18 Aug, 2013 [facility] [address] [id number] [address] [place] [address], [place] [address] 18 Aug, 2013 [facility] [address] [id number] [address] [place] [address], [place] [address] 17 Aug, 2013 [facility] [address] [id number] [address] [place] [address] 14 Aug, 2013 [facility] [address] [id number] [address] [place] [address] 14 Aug, 2013 [facility] [address] [id number] [address] [place] [address] 01 Aug, 2013 [facility] [address] [id number] [address] [place] [address], [place] [address] 20 Jul, 2013 [facility] [address] [id number] [address] [place] [address] 19 Jul, 2012 [facility] [address] [id number] [address] [place] [address] 18 Jul, 2013 [facility] [address] [id number] [facility] [address] Jul, [facility] [address] [id number] [address] [place] [address], [place] [address] Jul, [facility] [address] [id number] [address] [place] [address], [place] [address] Jun, [facility] [address] [id number] [address] [place] [address], [place] [address] Jun, [facility] [address] [id number] [address] [place] [address], [place] [address] Jun, [facility] [address] [id number] [address] [place] [address], [place] [address] Jun, [facility] [address] [id number] [address] [place] [address], [place] [address] Jun, [facility] [address] [id number] [address] [place] [address], [place] [address] Jun, [facility] [address] [id number] [address] [place] [address], [place] [address] Jun, [facility] [address] [id number] [address] [place] [address], [place] [address] Jun, [facility] [address] [id number] [address] [place] [address], [place] [address] Jun, [facility] [address] [id number] [address] [place] [address], [place] [address] Jun, [facility] [address] [id number] [address] [place] [address], [place] [address] May, [facility] [address] [id number] [address] [place] [address], [place] [address] May, [facility] [address] [id number] [address] [place] [address], [place] [address] May, [facility] [address] [id number] [address] [place] [address], [place] [address] May, [facility] [address] [id number] [address] [place] [address], [place] [address] May, [facility] [address] [id number] [address] [place] [address], [place] [address] May, [facility] [address] [id number] [address] [place] [address], [place] [address] May, [facility] [address] [id number] [address] [place] [address], [place] [address] May, [facility] [address] [id number] [address] [place] [address], [place] [address] May, [facility] [address] [id number] [address] [place] [address], [place] [address] Apr, [facility] [address] [id number] [address] [place] [address], [place] [address] Apr, [facility] [address] [id number] [address] [place] [address], [place] [address] Apr, [facility] [address] [id number] [address] [place] [address], [place] [address] Apr, [facility] [address] [id number] [address] [place] [address], [place] [address] Apr, [facility] [address] [id number] [address] [place] [address], [place] [address] Apr, [facility] [address] [id number] [address] [place] [address], [place] [address] Apr, [facility] [address] [id number] [address] [place] [address], [place] [address] March, [facility] [address] [id number] [address] [place] [address], [place] [address] Feb, [facility] [address] [id number] [address] [place] [address], [place] [address] Feb, [facility] [address] [id number] [address] [place] [address], [place] [address] 12 Feb, 2013 [facility] [address] [id number] [address] [place] [address], [place] [address] 28 Jan, 2013 [facility] [address] [id number] [address] [place] [address], [place] [address] 21 Jan, 2013 [facility] [address] [id number] [address] [place] [address], [place] [address] 19 Jan, 2013 [facility] [address] [id number] [address] [place] [address], [place] [address] 14 Jan, 2013 [facility] [address] [id number] [address] [place] [address], [place] [address] 12 Jan, 2013 [facility] [address] [id number] [address] [place] [address], [place] [address] 08 Jan, 2013 [facility] [address] [id number] [address] [place] [address], [place] [address] 07 Jan, 2013 [facility] [address] [id number] [address] [place] [address], [place] [address] 04 Jan, 2013 [facility] [address] [id number] [address] [place] [address], [place] [address] 28 Dec, 2012 [facility] [address] [id number] [address] [place] [address], [place] [address] 25 Dec, 2012 [facility] [address] [id number] [address] [place] [address], [place] [address] 13 Dec, 2012 [facility] [address] [id number] [address] [place] [address], [place] [address] 11 Dec, 2012 [facility] [address] [id number] [address] [place] [address], [place] [address] 07 Dec, 2012 [facility] [address] [id number] [address] [place] [address], [place] [address] 06 Dec, 2012 [facility] [address] [id number] [address] [place] [address], [place] [address] 05 Dec, 2012 [facility] [address] [id number] [address] [place] [address], [place] [address] 31 Nov, 2012 [facility] [address] [id number] [address] [place] [address], [place] [address] 24 Nov, 2012 [facility] [address] [id number] [address] [place] [address], [place] [address] 18 Nov, 2012 [facility] [address] [id number] [address] [place] [address], [place] [address] 15 Nov, 2012 [facility] [address] [id number] [address] [place] [address], [place] [address] Nov, [facility] [address] [id number] [address] [place] [address], [place] [address] Nov, [facility] [address] [id number] [address] [place] [address], [place] [address] Nov, [facility] [address] [id number] [address] [place] [address], [place] [address] Oct, [facility] [address] [id number] [address] [place] [address], [place] [address] Oct, [facility] [address] [id number] [address] [place] [address], [place] [address] Oct, [facility] [address] [id number] [address] [place] [address], [place] [address] Oct, [facility] [address] [id number] [address] [place] [address], [place] [address] Oct, [facility] [address] [id number] [address] [place] [address], [place] [address] Oct, [facility] [address] [id number] [address] [place] [address], [place] [address] Oct, [facility] [address] [id number] [address] [place] [address], [place] [address] 07 Oct, 2012 [facility] [address] [id number] [address] [address] Oct, [facility] [address] [id number] [address] [place] [address], [place] [address] Oct, [facility] [address] [id number] [address] [place] [address], [place] [address] Oct, [facility] [address] [id number] [address] [place] [address], [place] [address] Oct, [facility] [address] [id number] [address] [place] [address] Sep, [facility] [address] [id number] [address] [place] [address], [place] [address] Sep, [facility] [address] [id number] [address] [place] [address] Sep, [facility] [address] [id number] [address] [place] [address], [place] [address] Sep, [facility] [address] [id number] [address] [place] [address] Sep, [facility] [address] [id number] [address] [place] [address] Sep, [facility] [address] [id number] [address] [place] [address] Sep, [facility] [address] [id number] [address] [place] [address] Sep, [facility] [address] [id number] [address] [place] [address] Sep, [facility] [address] [id number] [address] [place] [address], [place] [address] Sep, [facility] [address] [id number] [address] [place] [address] Sep, [facility] [address] [id number] [address] [place] [address] Aug, [facility] [address] [id number] [address] [place] [address], [place] [address] Aug, [facility] [address] [id number] [address] [place] [address], [place] [address] Aug, [facility] [address] [id number] [address] [place] [address], [place] [address] Aug, [facility] [address] [id number] [address] [place] [address], [place] [address] Aug, [facility] [address] [id number] [address] [place] [address], [place] [address] Aug, [facility] [address] [id number] [address] [place] [address], [place] [address] Aug, [facility] [address] [id number] [address] [place] [address], [place] [address] Aug, [facility] [address] [id number] [address] [place] [address], [place] [address] Aug, [facility] [address] [id number] [address] [place] [address], [place] [address] Aug, [facility] [address] [id number] [address] [place] [address], [place] [address] 22 Jul, 2012 [facility] [address] [id number] [address] [place] [address], [place] [address] 20 Jul, 2012 [facility] [address] [id number] [address] [place] [address], [place] [address] 10 Jul, 2012 [facility] [address] [id number] [address] [place] [address], [place] [address] 06 Jul, 2012 [facility] [address] [id number] [address] [place] [address], [place] [address] 30 Jun, 2012 [facility] [address] [id number] [address] [place] [address], [place] [address] Jun, [facility] [address] [id number] [address] [place] [address], [place] [address] 16 Jun, 2012 [facility] [address] [id number] [address] [place] [address], [place] [address] Jun, [facility] [address] [id number] [address] [place] [address], [place] [address] Jun, [facility] [address] [id number] [address] [place] [address], [place] [address] Jun, [facility] [address] [id number] [address] [place] [address], [place] [address] Jun, [facility] [address] [id number] [address] [place] [address], [place] [address] May, [facility] [address] [id number] [address] [place] [address], [place] [address] May, [facility] [address] [id number] [address] [place] [address], [place] [address] May, [facility] [address] [id number] [address] [place] [address], [place] [address] May, [facility] [address] [id number] [address] [place] [address], [place] [address] May, [facility] [address] [id number] [address] [place] [address], [place] [address] Apr, [facility] [address] [id number] [address] [place] [address], [place] [address] Apr, [facility] [address] [id number] [address] [place] [address], [place] [address] Apr, [facility] [address] [id number] [address] [place] [address], [place] [address] Apr, [facility] [address] [id number] [address] [place] [address], [place] [address] Apr, [facility] [address] [id number] [address] [place] [address], [place] [address] March, [facility] [address] [id number] [address] [place] [address], [place] [address] March, [facility] [address] [id number] [address] [place] [address], [place] [address] March, [facility] [address] [id number] [address] [place] [address], [place] [address] March, [facility] [address] [id number] [address] [place] [address], [place] [address] March, [facility] [address] [id number] [address] [place] [address], [place] [address] March, [facility] [address] [id number] [address] [place] [address], [place] [address] March, [facility] [address] [id number] [address] [place] [address], [place] [address] March, [facility] [address] [id number] [address] [place] [address], [place] [address] March, [facility] [address] [id number] [address] [place] [address], [place] [address] March, [facility] [address] [id number] [address] [place] [address], [place] [address] 30 Feb, 2012 [facility] [address] [id number] [address] [place] [address], [place] [address] 27 Feb, 2012 [facility] [address] [id number] [address] [place] [address], [place] [address] 26 Feb, 2012 [facility] [address] [id number] [address] [place] [address], [place] [address] 19 Feb, 2012 [facility] [address] [id number] [address] [place] [address], [place] [address] 17 Feb, 2012 [facility] [address] [id number] [address] [place] [address], [place] [address] 17 Feb, 2012 [facility] [address] [id number] [address] [place] [address], [place] [address] 12 Feb, 2012 [facility] [facility] [address] [id number] [address] [place] [address], [place] [address] Feb, [facility] [address] [id number] [address] [place] [address], [place] [address] Feb, [facility] [address] [id number] [address] [place] [address], [place] [address] 08 Jan, 2012 [facility] [address] [id number] [address] [place] [address], [place] [address] Jan, [facility] [address] [id number] [address] [place] [address], [place] [address] 05 Jan, 2012 [facility] [address] [id number] [address] [place] [address], [place] [address] Jan, [facility] [address] [id number] [address] [place] [address], [place] [address] Dec, [facility] [address] [id number] [address] [place] [address], [place] [address] Dec, [facility] [address] [id number] [address] [place] [address], [place] [address] Nov, [facility] [address] [id number] [address] [place] [address], [place] [address] Nov, [facility] [address] [id number] [address] [place] [address], [place] [address] Nov, [facility] [address] [id number] [address] [place] [address], [place] [address] Nov, [facility] [address] [id number] [address] [place] [address], [place] [address] Nov, [facility] [address] [id number] [address] [place] [address], [place] [address] Oct, [facility] [address] [id number] [address] [place] [address], [place] [address] Oct, [facility] [address] [id number] [address] [place] [address], [place] [address] Oct, [facility] [address] [facility] [id number] [address] [place] [address] Oct, [facility] [address] [facility] [id number] [address] [place] [address] Oct, [facility] [address] [facility] [id number] [address] [place] [phone] Oct, [facility] [address] [facility] [id number] [address] [place] [phone] Oct, [facility] [address] [facility] [id number] [address] [place] [id number] Oct, [facility] [address] [facility] [id number] [address] [place] [id number] Sep, IMMUNIZATIONS No Known Immunizations SOCIAL HISTORY Never Assessed REASON FOR VISIT PLAN OF CARE VITAL SIGNS Height 62 in 2014-12-08 Weight 182.11 lbs 2014-12-08 Heart Rate 60 bpm 2014-12-08 Respiratory Rate 18 2014-12-08 Blood pressure systolic 148 mmHg 2014-12-08 Blood pressure diastolic 82 mmHg 2014-12-08 MEDICATIONS Unknown Medications RESULTS No Results PROCEDURES Procedure Date Ordered Result Body Site L HRT ARTERY/VENTRICLE ANGIO Dec 08, 2014 MEASURE BLOOD OXYGEN LEVEL Dec 08, 2014 CT ANGIO LWR EXTR W/O&W/DYE Dec 08, 2014 EXTRACRANIAL STUDY Dec 08, 2014 INSTRUCTIONS MEDICATIONS ADMINISTERED No Known Medications MEDICAL [...] History No Surgical history information Hospitalization History [facility]- Urosepsis, ab d pain and fever, discharged 11/27/2017 11/26/2017 Hospitalization History [facility] [place] [facility]- Went Unrepsonsive, Hit head 2017 Hospitalization History [facility] [place]- Back Pain 8
--- OUTSIDE RECORDS SUMMARY | 2020-06-18 14:40 | XMS REPORT ---
Author Author Sanjuanita JOHNSON [facility] Address [address] [place] [address] Care Team Providers Care Administrative Office Assistant Name Role Phone SHARIF JOHNSON Unavailable PROBLEMS Type Condition ICD9-CM Code [id number] Code Onset Dates Condition S tatus SNOMED Code Problem Hypertension I10 Active 7190702 3 Problem Hyperlipidemia E78.5 Active 88851 004 Problem Coronary artery disease I25.10 Active 54632033 Problem Low back pain M54.5 Active 249304 009 Problem Other chronic pain G89.29 Active 8 6786650 Problem Ventral hernia without obstruction or gangrene K43 .9 Active 318520369 Problem Type 2 diabetes mellitus wit hout complication, without long-term current use of insulin E11.9 Active 381482371 Problem Anxiety F41.9 Active 41555225 Problem Peripheral vascular disease I73.9 Ac tive 271559709 Problem Insomnia G47.00 Active 754168339 Problem Microcytic anemia D50.9 Active 23 7113418 Problem Pharyngeal dysphagia R13.13 Active 48255149730036 Problem Other iron deficiency anemia D50.8 A ctive 57576808 Problem Reactive depression F32.9 Active 36931412 Problem Paroxysmal atrial fibrillation I48.0 Active 380352448 Problem 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 Active 65280203 Problem Encounter for suprapubic catheter care Z43.5 Active 485326055 Problem Neurogenic bladder N31.9 Active 3 81447813 ALLERGIES No Information ENCOUNTERS Encounter Location Date Diagnosis [facility] [address] [facility] [id number] [address] [place] [phone] Feb, Anxiety F41.9 and Strain of right shoulder, subsequent encounter S46.911D [facility] [address] [facility] [id number] [address] [place] [phone] Jan, Anxiety F41.9 and Strain of right shoulder, subsequent encounter S46.911D [facility] [address] [id number] [address] [place] [phone] 17 Jan, 2020 [facility] [employer] [place] [facility] [address] [place] [id number] Jan, Neurogenic bladder N31.9 [place] [address] [id number] [address] [place] [phone] Dec, [facility] [place] [address] [id number] [address] [place] [phone] Dec, 2019 [place] [address] [id number] [address] [place] [phone] Dec, Anxiety F41.9 and Strain of right shoulder, subsequent encounter S46.911D [place] [address] [id number] [address] [place] [phone] 10 Dec, 2019 Other iron deficiency anemia D50.8 [place] [address] [id number] [address] [place] [phone] 04 Dec, 2019 Via [employer] [address] [place] [id number] 04 Dec, 2019 Encounter for suprapubic catheter care Z 43.5 and Microcytic anemia D50.9 [place] [address] [id number] [address] [place] [phone] Dec, [place] [address] [id number] [address] [place] [phone] Nov, Anxiety F41.9 and Strain of right shoulder, subsequent encounter S46.911D [place] [address] [id number] [address] [place] [phone] Nov, Hypertension I10 Via [facility] [employer] [address] [place] [id number] Nov, Pneumonia of both lungs due to infectiou s organism, unspecified part of lung J18.9 and Suprapubic catheter Z93.59 [place] [address] [id number] [address] [place] [phone] Nov, Hypertension I10 and Reactiv e depression F32.9 [facility] [address] [id number] [address] [place] [phone] Oct, Strain of right shoulder, scherer bsequent encounter S46.911D and Anxiety F41.9 [facility] [address] [id number] [address] [place] [phone] Oct, Via [facility] [address] [place] [id number] Oct, Suprapubic catheter Z93.59 and Candidias is, intertriginous B37.2 [place] [address] [id number] [address] [place] [phone] Oct, Suprapubic catheter Z93.59 [place] [address] [id number] [address] [place] [phone] Oct, Anxiety F41.9 and Strain of right shoulder, subsequent encounter S46.911D [facility] [address] [id number] [address] [place] [phone] Sep, [facility] [address] [id number] [address] [place] [phone] Sep, [facility] [address] [id number] [address] [place] [phone] Sep, Via [facility] [address] [place] [id number] Sep, Suprapubic catheter Z93.59 [facility] [address] [id number] [address] [place] [phone] Sep, Anxiety F41.9 and Strain of right shoulder, subsequent encounter S46.911D [facility] [address] [id number] [address] [place] [phone] Aug, [facility] [address] [id number] [address] [place] [phone] Aug, [facility] [address] [id number] [address] [place] [phone] Aug, Anxiety F41.9 and Strain of right shoulder, subsequent encounter S46.911D Via [facility] [address] [place] [id number] Aug, Suprapubic catheter Z93.59 [facility] [address] [id number] [address] [place] [phone] Jul, Strain of right shoulder, scherer bsequent encounter S46.911D and Anxiety F41.9 [place] [address] [id number] [address] [place] [phone] Jul, Anxiety F41.9 [place] [address] [id number] [address] [place] [phone] Jun, [facility] [address] [id number] [address] [place] [phone] Jun, [facility] [address] [id number] [address] [place] [phone] Jun, [facility] [address] [id number] [address] [place] [phone] Jun, Strain of right shoulder, scherer bsequent encounter S46.911D [facility] [address] [id number] [address] [place] [address] Jun, Strain of right shoulder, scherer bsequent encounter S46.911D [facility] [address] [id number] [address] [place] [phone] Jun, Anxiety F41.9 Via [facility] [employer] [address] [place] [id number] Jun, Neurogenic bladder N31.9 and Anxiety F41 .9 Via [facility] [address] [place] [id number] May, Anxiety F41.9 [facility] [address] [id number] [address] [place] [phone] May, Dysuria R30.0 [place] [address] [id number] [address] [place] [phone] May, Strain of right shoulder, scherer bsequent encounter S46.911D and Anxiety F41.9 [place] [address] [id number] [address] [place] [phone] 27 Apr, 2019 Via [facility] [employer] [address] [place] [id number] Apr, Strain of right shoulder, subsequent enc ounter S46.911D [place] [address] [id number] [address] [place] [phone] 14 Apr, 2019 Strain of right shoulder, scherer bsequent encounter S46.911D and Anxiety F41.9 [facility] [address] [place] [id number] 13 Apr, 2019 Type 2 diabetes mellitus without complic ation, without long-term current use of insulin E11.9 and Neurogenic bladder N31.9 Via [employer] [address] [place] [id number] 11 Apr, 2019 Strain of right shoulder, subsequent enc ounter S46.911D ; History of GI bleed Z87.19 ; Neurogenic bladder N31.9 and Reactive depression F32.9 [place] [address] [id number] [address] [place] [phone] 10 Apr, 2019 Acute pain of left shoulder M25.512 [place] [address] [id number] [address] [place] [phone] Apr, [place] [address] [id number] [address] [place] [phone] 06 Apr, 2019 Anxiety F41.9 and Other chrome polisher 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 [facility] [employer] [address] [place] [id number] March, Gastrointestinal hemorrhage associated w ith acute gastritis K29.01 [place] [address] [id number] [address] [place] [phone] March, Via [employer] [address] [place] [id number] March, Bronchitis J40 [facility] [address] [id number] [address] [place] [phone] March, Cough R05 [facility] [address] [id number] [address] [place] [phone] March, Other chronic pain G89.29 [facility] [address] [id number] [address] [place] [phone] March, Anxiety F41.9 [facility] [address] [id number] [address] [place] [phone] March, [facility] [address] [id number] [address] [place] [phone] Feb, Other chronic pain G89.29 [facility] [address] [id number] [address] [place] [phone] Feb, Anxiety F41.9 [facility] [address] [id number] [address] [place] [phone] Feb, Other chronic pain G89.29 Via [employer] [address] [place] [id number] Feb, Neurogenic bladder N31.9 and Suprapubic catheter Z93.59 [facility] [address] [id number] [address] [place] [phone] Jan, Anxiety F41.9 [facility] [address] [id number] [address] [place] [phone] Dec, Anxiety F41.9 [facility] [address] [id number] [address] [place] [phone] Dec, Other chronic pain G89.29 an d Anxiety F41.9 [facility] [address] [id number] [address] [place] [phone] Dec, Via [employer] [address] [place] [id number] Dec, Neurogenic bladder N31.9 and Suprapubic catheter Z93.59 [facility] [address] [id number] [address] [place] [phone] Nov, Other chronic pain G89.29 an d Anxiety F41.9 [facility] [address] [id number] [address] [place] [phone] Nov, Via [employer] [address] [place] [id number] Nov, Suprapubic catheter Z93.59 [facility] [address] [id number] [address] [place] [phone] Oct, Other chronic pain G89.29 an d Anxiety F41.9 [facility] [address] [id number] [address] [place] [phone] Oct, [facility] [address] [id number] [address] [place] [phone] Oct, Suprapubic catheter Z93.59 [facility] [address] [id number] [address] [place] [phone] Oct, Via [employer] [address] [place] [id number] Oct, [facility] [address] [id number] [address] [place] [phone] Oct, Anxiety F41.9 [facility] [address] [id number] [address] [place] [phone] Oct, Anxiety F41.9 [facility] [employer] [address] [place] [id number] Oct, Other chronic pain G89.29 [facility] [address] [id number] [address] [place] [phone] Sep, Other chronic pain G89.29 [facility] [employer] [address] [place] [id number] Sep, Suprapubic catheter Z93.59 and Cervicalg ia M54.2 [facility] [address] [id number] [address] [place] [phone] Sep, [facility] [address] [id number] [address] [place] [phone] Sep, [facility] [address] [id number] [address] [place] [phone] Sep, Via [employer] [address] [place] [id number] Aug, Cystitis N30.90 [facility] [address] [id number] [address] [place] [phone] Aug, [facility] [address] [id number] [address] [place] [phone] Aug, Other chronic pain G89.29 [facility] [address] [id number] [address] [place] [phone] Aug, Via [employer] [address] [place] [id number] Aug, Encounter for suprapubic catheter care Z 43.5 [facility] [address] [id number] [address] [place] [phone] Jul, Via [employer] [address] [place] [id number] Jul, [facility] [address] [id number] [address] [place] [phone] Jul, Other chronic pain G89.29 [facility] [address] [id number] [address] [place] [phone] Jul, [facility] [address] [id number] [address] [place] [phone] Jul, Via [employer] [address] [place] [id number] Jun, 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 [facility] [address] [id number] [address] [place] [phone] Jun, Other chronic pain G89.29 [facility] [address] [id number] [address] [place] [phone] Jun, Via [employer] [address] [place] [id number] May, Anxiety F41.9 ; Type 2 diabetes mellitus without complication, without long-term current use of insulin E11.9 ; Hypertension I10 ; Low back pain M54.5 ; Paroxysmal atrial fibrillation I48.0 and 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 [facility] [address] [id number] [address] [place] [phone] May, Other chronic pain G89.29 Via [employer] [address] [place] [id number] May, Low back pain M54.5 [facility] [address] [id number] [address] [place] [phone] May, [facility] [address] [id number] [address] [place] [phone] Apr, Other chronic pain G89.29 [facility] [address] [id number] [address] [place] [phone] Apr, [facility] [address] [id number] [address] [place] [phone] Apr, Via [employer] [address] [place] [id number] Apr, Closed compression fracture of L3 lumbar vertebra with routine healing, subsequent encounter S32.030D [facility] [employer] [address] [place] [id number] Apr, Low back pain M54.5 [facility] [employer] [address] [place] [id number] Apr, Coccydynia M53.3 [facility] [address] [id number] [address] [place] [phone] March, [facility] [address] [id number] [address] [place] [phone] March, Other chronic pain G89.29 [facility] [address] [facility] [id number] [address] [place] [phone] March, [facility] [address] [facility] [id number] [address] [place] [phone] March, [facility] [address] [id number] [address] [place] [phone] Feb, [facility] [address] [id number] [address] [place] [phone] Feb, Other chronic pain G89.29 Via [facility] [employer] [address] [place] [id number] Feb, Other chronic pain G89.29 and Anxiety F4 1.9 [facility] [address] [facility] [id number] [address] [place] [phone] Feb, [facility] [address] [facility] [id number] [address] [place] [address] Jan, [facility] [address] [facility] [id number] [address] [place] [phone] Jan, [facility] [address] [facility] [id number] [address] [place] [phone] Jan, [facility] [address] [facility] [id number] [address] [place] [phone] Jan, [facility] [address] [facility] [id number] [address] [place] [phone] Dec, Via [employer] [address] [place] [id number] Dec, Peripheral vascular disease I73.9 ; 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 ; Other chronic pain G89.29 ; Anxiety F41.9 ; Reactive depression F32.9 ; Insomnia G47.00 and Type 2 diabetes mellitus without complication, without long-term current use of insulin E11.9 [facility] [id number] [address] Nov, [facility] [address] [id number] [place] [id number] Nov, Anxiety F41.9 [facility] [address] [facility] [id number] [address] [place] [phone] Nov, [facility] [address] [id number] [place] [id number] Nov, Anxiety F41.9 Via [facility] [address] [place] [id number] Nov, Status post surgery Z98.890 ; Confused R 41.0 ; Anxiety F41.9 and Other chronic pain G89.29 [facility] [address] [id number] [place] [id number] Nov, Other chronic pain G89.29 [facility] [address] [facility] [id number] [address] [place] [phone] Oct, [facility] [address] [id number] [place] [id number] Oct, Other chronic pain G89.29 [facility] [address] [facility] [id number] [address] [place] [phone] Oct, Anxiety F41.9 [facility] [address] [id number] [place] [id number] Sep, Other chronic pain G89.29 [facility] [address] [id number] [place] [id number] Sep, Via [facility] [employer] [address] [place] [id number] Aug, Dysuria R30.0 and Anxiety F41.9 [facility] [address] [facility] [id number] [address] [place] [phone] Aug, [facility] [address] [id number] [place] [id number] Aug, Other chronic pain G89.29 [facility] [address] [id number] [address] [place] [phone] Jul, Other chronic pain G89.29 [facility] [address] [id number] [place] [facility] [id number] Jun, [facility] [address] [id number] [place] [id number] Jun, 2017 Other chronic pain G89.29 [facility] [address] [id number] [address] [place] [phone] Jun, [facility] [address] [id number] [address] [place] [phone] May, Other chronic pain G89.29 [facility] [address] [id number] [address] [place] [phone] Apr, Other chronic pain G89.29 [facility] [employer] [address] [place] [id number] Apr, Reactive depression F32.9 and Pharyngeal dysphagia R13.13 [facility] [address] [id number] [address] [place] [phone] Apr, Urinary tract infection with out hematuria, site unspecified N39.0 [facility] [address] [id number] [address] [place] [phone] March, Other chronic pain G89.29 [facility] [address] [id number] [address] [place] [phone] Feb, Other chronic pain G89.29 [facility] [address] [id number] [address] [place] [phone] Feb, [facility] [address] [id number] [place] [id number] Feb, Via [employer] [address] [place] [id number] Feb, Dysuria R30.0 and Ventral hernia without obstruction or gangrene K43.9 [facility] [address] [id number] [address] [place] [phone] Jan, Other chronic pain G89.29 [facility] [address] [id number] [facility] [id number] Dec, Other chronic pain G89.29 [facility] [address] [id number] [address] [place] [phone] Nov, Other chronic pain G89.29 [facility] [address] [place] [id number] Nov, Lymphadenitis I88.9 [facility] [address] [id number] [address] [place] [phone] Nov, Other chronic pain G89.29 [facility] [address] [id number] [address] [place] [phone] Nov, [facility] [address] [id number] [place] [id number] Nov, Other chronic pain G89.29 [facility] [employer] [facility] [address] [place] [id number] Oct, Low back pain M54.5 ; Hypertension I10 a nd Type 2 diabetes mellitus without complication, without long-term current use of insulin E11.9 [facility] [address] [id number] [address] [place] [phone] Oct, [facility] [address] [id number] [address] [place] [phone] Oct, [facility] [address] [id number] [address] [place] [id number] Oct, [facility] [address] [id number] [place] [phone] Oct, [facility] [address] [id number] [address] [place] [phone] Sep, [facility] [address] [id number] [address] [place] [phone] Sep, [facility] [address] [id number] [address] [place] [phone] Aug, Other chronic pain G89.29 [facility] [address] [id number] [address] [place] [phone] Jul, [facility] [address] [id number] [address] [place] [phone] Jul, [facility] [address] [id number] [address] [place] [phone] Jul, [facility] [address] [id number] [address] [place] [phone] Jun, [facility] [address] [id number] [address] [place] [phone] Jun, [facility] [address] [place] [id number] Jun, Low back pain M54.5 ; Other chronic pain G89.29 and Coronary artery disease I25.10 [facility] [address] [id number] [address] [place] [phone] Jun, [facility] [address] [id number] [address] [place] [phone] May, [facility] [address] [id number] [address] [place] [phone] May, [facility] [address] [id number] [address] [place] [phone] May, Other chronic pain G89.29 [facility] [address] [id number] [address] [place] [phone] May, [facility] [address] [id number] [address] [place] [phone] Apr, [facility] [address] [id number] [address] [place] [address] Apr, Acute cystitis without hemat uria N30.00 [facility] [address] [id number] [address] [place] [phone] 16 Apr, 2016 Acute cystitis without hemat uria N30.00 ; Coronary artery disease I25.10 ; Low back pain M54.5 and Other chronic pain G89.29 [facility] [address] [id number] [address] [place] [address] 13 Apr, 2016 Other chronic pain G89.29 [facility] [address] [id number] [address] [place] [phone] March, Other chronic pain G89.29 [facility] [address] [id number] [address] [place] [phone] 18 Feb, 2016 [facility] [address] [id number] [address] [place] [phone] Feb, Arthritis M19.90 [facility] [address] [id number] [address] [place] [phone] Feb, [facility] [address] [id number] [address] [place] [phone] Jan, [facility] [address] [id number] [address] [place] [phone] Jan, [facility] [address] [id number] [address] [place] [phone] Jan, Other chronic pain G89.29 [facility] [address] [id number] [address] [place] [phone] Jan, Hypertension I10 ; Coronary artery disease I25.10 and Insomnia G47.00 [facility] [address] [id number] [address] [place] [phone] Jan, [facility] [address] [facility] [id number] [address] [place] [phone] 29 Dec, 2015 Right hip pain M25.551 [facility] [address] [id number] [address] [place] [phone] Dec, [facility] [address] [id number] [address] [place] [phone] Dec, [facility] [address] [id number] [address] [place] [phone] Dec, [facility] [address] [id number] [address] [place] [address] Dec, Other chronic pain G89.29 [facility] [address] [id number] [address] [place] [phone] Dec, [facility] [address] [id number] [address] [place] [phone] Nov, [facility] [address] [id number] [address] [place] [phone] Nov, Other chronic pain G89.29 [facility] [address] [id number] [address] [place] [address] Nov, Right hip pain M25.551 and C oronary artery disease I25.10 [facility] [address] [id number] [address] [place] [phone] Nov, Other chronic pain G89.29 [facility] [address] [id number] [address] [place] [phone] Oct, [facility] [address] [id number] [address] [place] [phone] Oct, [facility] [address] [id number] [address] [place] [phone] Sep, [facility] [address] [id number] [address] [place] [phone] Sep, [facility] [address] [id number] [address] [place] [phone] Aug, [facility] [address] [facility] [id number] [address] [place] [phone] 15 Oct, 2015 Hypertension I10 ; Coronary artery disease I25.10 and Arthritis M19.90 [facility] [address] [id number] [address] [place] [phone] Jun, [facility] [address] [id number] [address] [place] [phone] Jun, Essential hypertension, jayson gn 401.1 ; Other chronic pain 338.29 and Chronic airway obstruction, not elsewhere classified 496 [facility] [address] [id number] [address] [place] [phone] Jun, [facility] [address] [id number] [address] [place] [phone] Jun, [facility] [address] [id number] [address] [place] [phone] Jun, [facility] [address] [id number] [address] [place] [phone] May, [facility] [address] [id number] [address] [place] [phone] May, [facility] [address] [id number] [address] [place] [phone] Apr, [facility] [address] [id number] [address] [place] [phone] Apr, [facility] [address] [id number] [address] [place] [phone] Apr, [facility] [address] [id number] [address] [place] [id number] March, [facility] [address] [id number] [address] [place] [phone] March, [facility] [address] [id number] [address] [place] [phone] March, [facility] [address] [id number] [address] [place] [phone] March, [facility] [address] [id number] [address] [place] [address], [place] [address] March, Sialadenitis 527.2 [facility] [address] [id number] [address] [place] [address], [place] [address] Feb, [facility] [address] [id number] [address] [place] [address], [place] [address] Feb, [facility] [address] [id number] [address] [place] [address], [place] [address] Feb, [facility] [address] [id number] [address] [place] [address], [place] [address] Feb, [facility] [address] [id number] [address] [place] [address], [place] [address] Feb, [facility] [address] [id number] [address] [place] [address], [place] [address] Jan, [facility] [address] [id number] [address] [place] [address], [place] [address] Jan, [facility] [address] [id number] [address] [place] [address], [place] [address] Jan, [facility] [address] [id number] [address] [place] [address], [place] [address] Jan, [facility] [address] [id number] [address] [place] [address], [place] [address] Jan, [facility] [address] [id number] [address] [place] [address], [place] [address] Jan, [facility] [address] [id number] [address] [place] [address], [place] [address] Dec, [facility] [address] [id number] [address] [place] [address], [place] [address] Dec, [facility] [address] [id number] [address] [place] [phone] Dec, [facility] [address] [id number] [address] [place] [phone] Dec, [facility] [address] [id number] [address] [place] [address], [place] [address] Dec, [facility] [address] [id number] [address] [place] [address], [place] [address] Dec, [facility] [address] [id number] [address] [place] [address], [place] [address] Nov, [facility] [address] [id number] [address] [place] [address], [place] [address] Nov, [facility] [address] [id number] [address] [place] [address], [place] [address] Nov, [facility] [address] [id number] [address] [place] [address], [place] [address] Nov, [facility] [address] [id number] [address] [place] [address], [place] [address] Nov, [facility] [address] [id number] [address] [place] [address], [place] [address] Nov, [facility] [address] [id number] [address] [place] [address], [place] [address] Nov, [facility] [address] [id number] [address] [place] [address], [place] [address] Nov, [facility] [address] [id number] [address] [place] [address], [place] [address] Nov, [facility] [address] [id number] [address] [place] [address], [place] [address] Nov, [facility] [address] [id number] [address] [place] [address], [place] [address] Nov, [facility] [address] [id number] [address] [place] [address], [place] [address] Nov, [facility] [address] [id number] [address] [place] [address], [place] [address] Nov, [facility] [address] [id number] [address] [place] [address], [place] [address] Nov, [facility] [address] [id number] [address] [place] [address], [place] [address] Oct, [facility] [address] [id number] [address] [place] [address], [place] [address] Oct, [facility] [address] [id number] [address] [place] [address], [place] [address] Oct, [facility] [address] [id number] [address] [place] [address], [place] [address] Oct, [facility] [address] [id number] [address] [place] [address], [place] [address] Oct, [facility] [address] [id number] [address] [place] [address], [place] [address] Oct, [facility] [address] [id number] [address] [place] [address], [place] [address] Oct, [facility] [address] [id number] [address] [place] [address], [place] [address] Oct, [facility] [address] [id number] [address] [place] [address], [place] [address] Oct, [facility] [address] [id number] [address] [place] [address], [place] [address] Sep, [facility] [address] [id number] [address] [place] [address], [place] [address] Sep, [facility] [address] [id number] [address] [place] [address], [place] [address] Sep, [facility] [address] [id number] [address] [place] [address], [place] [address] Sep, [facility] [address] [id number] [address] [place] [address], [place] [address] Sep, [facility] [address] [id number] [address] [place] [address], [place] [address] Sep, [facility] [address] [id number] [address] [place] [address], [place] [address] Sep, [facility] [address] [id number] [address] [place] [address], [place] [address] Sep, [facility] [address] [id number] [address] [place] [address], [place] [address] Sep, [facility] [address] [id number] [address] [place] [address], [place] [address] Sep, [facility] [address] [id number] [address] [place] [address], [place] [address] Sep, [facility] [address] [id number] [address] [place] [address], [place] [address] Sep, [facility] [address] [id number] [address] [place] [address], [place] [address] Aug, [facility] [address] [id number] [address] [place] [address], [place] [address] Aug, [facility] [address] [id number] [address] [place] [address], [place] [address] Aug, [facility] [address] [id number] [address] [place] [phone] Aug, [facility] [address] [id number] [address] [place] [phone] Aug, [facility] [address] [id number] [address] [place] [phone] Aug, [facility] [address] [id number] [address] [place] [address], [place] [address] Aug, [facility] [address] [id number] [address] [place] [address], [place] [address] Aug, [facility] [address] [id number] [address] [place] [address], [place] [address] 30 Jul, 2014 [facility] [address] [id number] [address] [place] [phone] 30 Jul, 2013 [facility] [address] [id number] [facility] [place] [address] 30 Jul, 2013 [facility] [address] [id number] [address] [place] [address], [place] [address] 30 Jul, 2013 [facility] [address] [id number] [address] [place] [address], [place] [address] 25 Jul, 2013 [facility] [address] [id number] [address] [place] [address], [place] [address] 25 Jul, 2013 [facility] [address] [id number] [address] [place] [address], [place] [address] 15 Jul, 2013 [facility] [address] [id number] [address] [place] [address], [place] [address] 15 Jul, 2013 [facility] [address] [id number] [address] [place] [address], [place] [address] Jul, 2013 [facility] [address] [id number] [address] [place] [address], [place] [address] Jul, 2013 [facility] [address] [id number] [address] [place] [address], [place] [address] Jun, [facility] [address] [id number] [address] [place] [address], [place] [address] Jun, [facility] [address] [id number] [address] [place] [address], [place] [address] Jun, [facility] [address] [id number] [address] [place] [address], [place] [address] Jun, [facility] [address] [id number] [address] [place] [address], [place] [address] Jun, [facility] [address] [id number] [address] [place] [address], [place] [address] Jun, [facility] [address] [id number] [address] [place] [address], [place] [address] Jun, [facility] [address] [id number] [facility] [place] [address] Jun, [facility] [address] [id number] [facility] [place] [address] Jun, [facility] [address] [id number] [facility] [place] [address] Jun, [facility] [address] [id number] [facility] [place] [address] Jun, [facility] [address] [id number] [facility] [place] [address] Jun, [facility] [address] [id number] [address] [place] [address], [place] [address] Jun, [facility] [address] [id number] [address] [place] [address], [place] [address] Jun, [facility] [address] [id number] [address] [place] [address], [place] [address] Jun, [facility] [address] [id number] [address] [place] [address], [place] [address] Jun, [facility] [address] [id number] [address] [place] [address], [place] [address] Jun, [facility] [address] [id number] [address] [place] [address], [place] [address] Jun, [facility] [address] [id number] [address] [place] [address], [place] [address] Jun, [facility] [address] [id number] [address] [place] [address], [place] [address] Jun, [facility] [address] [id number] [address] [place] [address], [place] [address] Jun, [facility] [address] [id number] [address] [place] [address], [place] [address] Jun, [facility] [address] [id number] [address] [place] [address], [place] [address] May, [facility] [address] [id number] [facility] [place] [address] May, [facility] [address] [id number] [facility] [place] [address] May, [facility] [address] [id number] [facility] [place] [address] May, [facility] [address] [id number] [address] [place] [address], [place] [address] May, [facility] [address] [id number] [facility] [place] [address] May, [facility] [address] [id number] [address] [place] [address], [place] [address] May, [facility] [address] [id number] [address] [place] [address], [place] [address] May, [facility] [address] [id number] [address] [place] [address], [place] [address] May, [facility] [address] [id number] [address] [place] [address], [place] [address] May, [facility] [address] [id number] [address] [place] [address], [place] [address] May, [facility] [address] [id number] [address] [place] [address], [place] [address] May, [facility] [address] [id number] [address] [place] [address], [place] [address] May, [facility] [address] [id number] [address] [place] [address], [place] [address] Apr, [facility] [address] [id number] [address] [place] [address], [place] [address] Apr, [facility] [address] [id number] [address] [place] [address], [place] [address] Apr, [facility] [address] [id number] [facility] [place] [address] Apr, [facility] [address] [id number] [address] [place] [address], [place] [address] Apr, [facility] [address] [id number] [facility] [place] [address] Apr, [facility] [address] [id number] [address] [place] [address], [place] [address] Apr, [facility] [address] [id number] [address] [place] [address], [place] [address] Apr, [facility] [address] [id number] [address] [place] [address], [place] [address] Apr, [facility] [address] [id number] [address] [place] [address], [place] [address] March, [facility] [address] [id number] [address] [place] [address], [place] [address] March, [facility] [address] [id number] [address] [place] [address], [place] [address] March, [facility] [address] [id number] [address] [place] [address], [place] [address] March, [facility] [address] [id number] [address] [place] [address], [place] [address] March, [facility] [address] [id number] [address] [place] [address], [place] [address] March, [facility] [address] [id number] [address] [place] [address], [place] [address] March, [facility] [address] [id number] [address] [place] [address], [place] [address] March, [facility] [address] [id number] [address] [place] [address], [place] [address] March, [facility] [address] [id number] [address] [place] [address], [place] [address] March, [facility] [address] [id number] [address] [place] [address], [place] [address] March, [facility] [address] [id number] [address] [place] [address], [place] [address] March, [facility] [address] [id number] [address] [place] [address], [place] [address] March, [facility] [address] [id number] [address] [place] [address], [place] [address] March, [facility] [address] [id number] [address] [place] [address], [place] [address] March, [facility] [address] [id number] [address] [place] [address], [place] [address] March, [facility] [address] [id number] [address] [place] [address], [place] [address] March, [facility] [address] [id number] [address] [place] [address], [place] [address] March, [facility] [address] [id number] [address] [place] [address], [place] [address] March, [facility] [address] [id number] [address] [place] [address], [place] [address] March, [facility] [address] [id number] [address] [place] [place] [address], [place] [address] Feb, [facility] [address] [id number] [address] [place] [address], [place] [address] Feb, [facility] [address] [id number] [address] [place] [address], [place] [address] Feb, [facility] [address] [id number] [address] [place] [address], [place] [address] Feb, [facility] [address] [id number] [address] [place] [address], [place] [address] Feb, [facility] [address] [id number] [address] [place] [address], [place] [address] Feb, [facility] [address] [id number] [facility] [place] [address] Feb, [facility] [address] [id number] [address] [place] [address], [place] [address] Feb, [facility] [address] [id number] [address] [place] [address], [place] [address] Jan, [facility] [address] [id number] [address] [place] [address], [place] [address] Jan, [facility] [address] [id number] [address] [place] [address], [place] [address] Jan, [facility] [address] [id number] [address] [place] [address], [place] [address] Jan, [facility] [address] [id number] [address] [place] [address], [place] [address] Jan, [facility] [address] [id number] [address] [place] [address], [place] [address] Jan, [facility] [address] [id number] [address] [place] [address], [place] [address] Jan, [facility] [address] [id number] [address] [place] [address], [place] [address] Jan, [facility] [address] [id number] [address] [place] [address], [place] [address] Jan, [facility] [address] [id number] [address] [place] [address], [place] [address] Jan, [facility] [address] [id number] [address] [place] [address], [place] [address] Dec, [facility] [address] [id number] [address] [place] [address], [place] [address] Dec, [facility] [address] [id number] [address] [place] [address], [place] [address] Dec, [facility] [address] [id number] [facility] [place] [address] 2013 [facility] [address] [id number] [address] [place] [address] [address] 2013 [facility] [address] [id number] [address] [place] [address], [place] [address] 13 Dec, 2013 [facility] [address] [id number] [address] [place] [address], [place] [address] Dec, [facility] [address] [id number] [address] [place] [address], [place] [address] Dec, [facility] [address] [id number] [address] [place] [address], [place] [address] Nov, [facility] [address] [id number] [address] [place] [address], [place] [address] Nov, [facility] [address] [id number] [address] [place] [address], [place] [address] Nov, [facility] [address] [id number] [address] [place] [address], [place] [address] Nov, [facility] [address] [id number] [address] [place] [address], [place] [address] Nov, [facility] [address] [id number] [address] [place] [address], [place] [address] Nov, [facility] [address] [id number] [address] [place] [address], [place] [address] Nov, [facility] [address] [id number] [address] [place] [address], [place] [address] Nov, [facility] [address] [id number] [address] [place] [address], [place] [address] Nov, [facility] [address] [id number] [address] [place] [address], [place] [address] Nov, [facility] [address] [id number] [address] [place] [address], [place] [address] Nov, [facility] [address] [id number] [address] [place] [address], [place] [address] Nov, [facility] [address] [id number] [address] [place] [address], [place] [address] Nov, [facility] [address] [id number] [address] [place] [address], [place] [address] Oct, [facility] [address] [id number] [address] [place] [address], [place] [address] Oct, [facility] [address] [id number] [address] [place] [address], [place] [address] Oct, [facility] [address] [id number] [address] [place] [address], [place] [address] Oct, [facility] [address] [id number] [address] [place] [address], [place] [address] Oct, [facility] [address] [id number] [address] [place] [address], [place] [address] Oct, [facility] [address] [id number] [address] [place] [address], [place] [address] Oct, [facility] [address] [id number] [address] [place] [address], [place] [address] Oct, [facility] [address] [id number] [address] [place] [address], [place] [address] Oct, [facility] [address] [id number] [address] [place] [address], [place] [address] 17 Oct, 2013 [facility] [address] [id number] [address] [place] [address], [place] [address] Oct, [facility] [address] [id number] [address] [place] [address], [place] [address] Oct, [facility] [address] [id number] [address] [place] [address], [place] [address] Oct, [facility] [address] [id number] [address] [place] [address], [place] [address] 02 Oct, 2013 [facility] [address] [id number] [address] [place] [address], [place] [address] Sep, [facility] [address] [id number] [address] [place] [address], [place] [address] Sep, [facility] [address] [id number] [address] [place] [address], [place] [address] 05 Sep, 2013 [facility] [address] [id number] [address] [place] [address], [place] [address] Sep, [facility] [address] [id number] [address] [place] [address], [place] [address] Sep, [facility] [address] [id number] [address] [place] [address], [place] [address] Sep, [facility] [address] [id number] [address] [place] [address], [place] [address] Sep, [facility] [address] [id number] [address] [place] [address], [place] [address] Sep, [facility] [address] [id number] [address] [place] [address], [place] [address] Sep, [facility] [address] [id number] [address] [place] [address], [place] [address] Sep, [facility] [address] [id number] [address] [place] [address], [place] [address] Aug, [facility] [address] [id number] [address] [place] [address], [place] [address] Aug, [facility] [address] [id number] [address] [place] [address], [place] [address] Aug, [facility] [address] [id number] [address] [place] [address], [place] [address] Aug, [facility] [address] [id number] [address] [place] [address], [place] [address] Aug, [facility] [address] [id number] [address] [place] [address], [place] [address] 23 Aug, 2012 [facility] [address] [id number] [address] [place] [address], [place] [address] 23 Aug, 2013 [facility] [address] [id number] [address] [place] [address], [place] [address] 23 Aug, 2013 [facility] [address] [id number] [address] [place] [address], [place] [address] Aug, 2012 [facility] [address] [id number] [address] [place] [address], [place] [address] 22 Aug, 2013 [facility] [address] [id number] [address] [place] [address], [place] [address] 18 Aug, 2013 [facility] [address] [id number] [address] [place] [address], [place] [address] 18 Aug, 2013 [facility] [address] [id number] [address] [place] [id number] 18 Aug, 2013 [facility] [address] [id number] [address] [place] [address], [place] [address] 18 Aug, 2013 [facility] [address] [id number] [address] [place] [id number] 17 Aug, 2013 [facility] [address] [id number] [address] [place] [id number] 14 Aug, 2013 [facility] [address] [id number] [address] [place] [id number] 14 Aug, 2013 [facility] [address] [id number] [address] [place] [id number] Aug, [facility] [address] [id number] [address] [place] [id number] 20 Jul, 2013 [facility] [address] [id number] [address] [place] [id number] 19 Jul, 2013 [facility] [address] [id number] [address] [place] [id number] 18 Jul, 2013 [facility] [address] [id number] [address] [place] [address], [place] [address] Jul, [facility] [address] [id number] [address] [place] [address], [place] [address] Jul, [facility] [address] [id number] [address] [place] [address], [place] [address] Jun, [facility] [address] [id number] [address] [place] [address], [place] [address] Jun, [facility] [address] [id number] [address] [place] [address], [place] [address] Jun, [facility] [address] [id number] [address] [place] [address], [place] [address] Jun, [facility] [address] [id number] [address] [place] [address], [place] [address] Jun, [facility] [address] [id number] [address] [place] [address], [place] [address] Jun, [facility] [address] [id number] [address] [place] [address], [place] [address] Jun, [facility] [address] [id number] [address] [place] [address], [place] [address] Jun, [facility] [address] [id number] [address] [place] [address], [place] [address] Jun, [facility] [address] [id number] [address] [place] [address], [place] [address] Jun, [facility] [address] [id number] [address] [place] [address], [place] [address] May, [facility] [address] [id number] [address] [place] [address], [place] [address] May, [facility] [address] [id number] [address] [place] [address], [place] [address] May, [facility] [address] [id number] [address] [place] [address], [place] [address] May, [facility] [address] [id number] [address] [place] [address], [place] [address] May, [facility] [address] [id number] [address] [place] [address], [place] [address] May, [facility] [address] [id number] [address] [place] [address], [place] [address] May, [facility] [address] [id number] [address] [place] [address], [place] [address] May, [facility] [address] [id number] [address] [place] [address], [place] [address] May, [facility] [address] [id number] [address] [place] [address], [place] [address] Apr, [facility] [address] [id number] [address] [place] [address], [place] [address] Apr, [facility] [address] [id number] [address] [place] [address], [place] [address] Apr, [facility] [address] [id number] [address] [place] [address], [place] [address] Apr, [facility] [address] [id number] [address] [place] [address], [place] [address] Apr, [facility] [address] [id number] [address] [place] [address], [place] [address] Apr, [facility] [address] [id number] [address] [place] [address], [place] [address] Apr, [facility] [address] [id number] [address] [place] [address], [place] [address] March, [facility] [address] [id number] [address] [place] [address], [place] [address] Feb, [facility] [address] [id number] [address] [place] [address], [place] [address] Feb, [facility] [address] [id number] [address] [place] [address], [place] [address] Feb, [facility] [address] [id number] [address] [place] [address], [place] [address] 28 Jan, 2013 [facility] [address] [id number] [address] [place] [address], [place] [address] 21 Jan, 2013 [facility] [address] [id number] [address] [place] [address], [place] [address] 19 Jan, 2013 [facility] [address] [id number] [address] [place] [address], [place] [address] 14 Jan, 2013 [facility] [address] [id number] [address] [place] [address], [place] [address] 12 Jan, 2013 [facility] [address] [id number] [address] [place] [address], [place] [address] 08 Jan, 2013 [facility] [address] [id number] [address] [place] [address], [place] [address] 07 Jan, 2013 [facility] [address] [id number] [address] [place] [address], [place] [address] 04 Jan, 2013 [facility] [address] [id number] [address] [place] [address], [place] [address] 28 Dec, 2012 [facility] [address] [id number] [address] [place] [address], [place] [address] 25 Dec, 2012 [facility] [address] [id number] [address] [place] [address], [place] [address] 13 Dec, 2012 [facility] [address] [id number] [address] [place] [address], [place] [address] 11 Dec, 2012 [facility] [address] [id number] [address] [place] [address], [place] [address] 07 Dec, 2012 [facility] [address] [id number] [address] [place] [address], [place] [address] 06 Dec, 2012 [facility] [address] [id number] [address] [place] [address], [place] [address] 05 Dec, 2012 [facility] [address] [id number] [address] [place] [address], [place] [address] Nov, [facility] [address] [id number] [address] [place] [address], [place] [address] Nov, [facility] [address] [id number] [address] [place] [address], [place] [address] Nov, [facility] [address] [id number] [address] [place] [address], [place] [address] Nov, [facility] [address] [id number] [address] [place] [address], [place] [address] Nov, [facility] [address] [id number] [address] [place] [address], [place] [address] Nov, [facility] [address] [id number] [address] [place] [address], [place] [address] Nov, [facility] [address] [id number] [address] [place] [address], [place] [address] Oct, [facility] [address] [id number] [address] [place] [address], [place] [address] Oct, [facility] [address] [id number] [address] [place] [address], [place] [address] Oct, [facility] [address] [id number] [address] [place] [address], [place] [address] Oct, [facility] [address] [id number] [address] [place] [address], [place] [address] Oct, [facility] [address] [id number] [address] [place] [address], [place] [address] Oct, [facility] [address] [id number] [address] [place] [address], [place] [address] Oct, [facility] [address] [id number] [address] [place] [address], [place] [address] Oct, [facility] [address] [id number] [address] [place] [address], [place] [address] Oct, [facility] [address] [id number] [address] [place] [address], [place] [address] Oct, [facility] [address] [id number] [address] [place] [address], [place] [address] Oct, [facility] [address] [id number] [address] [place] [address], [place] [address] Oct, [facility] [address] [id number] [address] [place] [address], [place] [address] Sep, [facility] [address] [id number] [address] [place] [address], [place] [address] Sep, [facility] [address] [id number] [address] [place] [address], [place] [address] Sep, [facility] [address] [id number] [address] [place] [address], [place] [address] Sep, [facility] [address] [id number] [address] [place] [address], [place] [address] Sep, [facility] [address] [id number] [address] [place] [address], [place] [address] Sep, [facility] [address] [id number] [address] [place] [address], [place] [address] Sep, [facility] [address] [id number] [address] [place] [id number] Sep, [facility] [address] [id number] [address] [place] [address], [place] [address] Sep, [facility] [address] [id number] [address] [place] [address], [place] [address] Sep, [facility] [address] [id number] [address] [place] [address], [place] [address] Sep, [facility] [address] [id number] [address] [place] [address], [place] [address] Aug, [facility] [address] [id number] [address] [place] [address], [place] [address] Aug, [facility] [address] [id number] [address] [place] [address], [place] [address] Aug, [facility] [address] [id number] [address] [place] [address], [place] [address] Aug, [facility] [address] [id number] [address] [place] [address], [place] [address] Aug, [facility] [address] [id number] [address] [place] [address], [place] [address] Aug, [facility] [address] [id number] [address] [place] [address], [place] [address] Aug, [facility] [address] [id number] [address] [place] [address], [place] [address] Aug, [facility] [address] [id number] [address] [place] [address], [place] [address] Aug, [facility] [address] [id number] [address] [place] [address], [place] [address] Aug, [facility] [address] [id number] [address] [place] [address], [place] [address] Jul, [facility] [address] [id number] [address] [place] [address], [place] [address] 20 Jul, 2012 [facility] [address] [id number] [address] [place] [address], [place] [address] 10 Jul, 2012 [facility] [address] [id number] [address] [place] [address], [place] [address] 06 Jul, 2012 [facility] [address] [id number] [address] [place] [address], [place] [address] 30 Jun, 2012 [facility] [address] [id number] [address] [place] [address], [place] [address] Jun, [facility] [address] [id number] [facility] [place] [address] Jun, [facility] [address] [id number] [address] [place] [address], [place] [address] Jun, [facility] [address] [id number] [address] [place] [address], [place] [address] Jun, [facility] [address] [id number] [address] [place] [address], [place] [address] Jun, [facility] [address] [id number] [address] [place] [address], [place] [address] Jun, [facility] [address] [id number] [address] [place] [address], [place] [address] May, [facility] [address] [id number] [address] [place] [address], [place] [address] May, [facility] [address] [id number] [address] [place] [address], [place] [address] May, [facility] [address] [id number] [address] [place] [address], [place] [address] May, [facility] [address] [id number] [address] [place] [address], [place] [address] May, [facility] [address] [id number] [address] [place] [address], [place] [address] Apr, [facility] [address] [id number] [address] [place] [address], [place] [address] Apr, [facility] [address] [id number] [address] [place] [address], [place] [address] Apr, [facility] [address] [id number] [address] [place] [address], [place] [address] Apr, [facility] [address] [id number] [address] [place] [address], [place] [address] Apr, [facility] [address] [id number] [address] [place] [address], [place] [address] March, [facility] [address] [id number] [address] [place] [address], [place] [address] March, [facility] [address] [id number] [address] [place] [address], [place] [address] March, [facility] [address] [id number] [address] [place] [address], [place] [address] March, [facility] [address] [id number] [address] [place] [address], [place] [address] March, [facility] [address] [id number] [address] [place] [address], [place] [address] March, [facility] [address] [id number] [address] [place] [address], [place] [address] March, [facility] [address] [id number] [address] [place] [address], [place] [address] March, [facility] [address] [id number] [address] [place] [address], [place] [address] March, [facility] [address] [id number] [address] [place] [address], [place] [address] March, [facility] [address] [id number] [address] [place] [address], [place] [address] Feb, [facility] [address] [id number] [address] [place] [address], [place] [address] Feb, [facility] [address] [id number] [address] [place] [address], [place] [id number] Feb, [facility] [address] [id number] [address] [place] [address], [place] [id number] Feb, [facility] [address] [id number] [address] [place] [address], [place] [id number] Feb, [facility] [address] [id number] [address] [place] [address], [place] [phone] Feb, [facility] [address] [id number] [address] [place] [address], [place] [id number] Feb, [facility] [address] [id number] [address] [place] [address], [place] [id number] Feb, [facility] [address] [id number] [address] [place] [address], [place] [id number] Feb, [facility] [address] [id number] [address] [place] [address], [place] [id number] 08 Jan, 2012 [facility] [address] [id number] [address] [place] [address], [place] [id number] Jan, [facility] [address] [id number] [address] [place] [address], [place] [id number] 05 Jan, 2012 [facility] [address] [id number] [address] [place] [address], [place] [phone] Jan, [facility] [address] [id number] [address] [place] [address], [place] [id number] Dec, [facility] [address] [id number] [address] [place] [address], [place] [id number] Dec, [facility] [address] [id number] [address] [place] [address], [place] [phone] Nov, [facility] [address] [id number] [address] [place] [address], [place] [id number] Nov, [facility] [address] [id number] [address] [place] [address], [place] [phone] Nov, [facility] [address] [id number] [address] [place] [address], [place] [id number] Nov, [facility] [address] [id number] [address] [place] [address], [place] [id number] Nov, [facility] [address] [id number] [address] [place] [address], [place] [id number] Oct, [facility] [address] [id number] [address] [place] [address], [place] [address] Oct, [facility] [address] [id number] [address] [place] [phone] Oct, [facility] [address] [id number] [address] [place] [phone] Oct, [facility] [address] [id number] [address] [place] [phone] Oct, [facility] [address] [id number] [address] [place] [phone] Oct, [facility] [address] [id number] [address] [place] [phone] Oct, [facility] [address] [id number] [address] [place] [phone] Oct, [facility] [address] [facility] [id number] [address] [place] [phone] Sep, IMMUNIZATIONS No Known Immunizations SOCIAL HISTORY [...] History No Surgical history information Hospitalization History [facility]- Urosepsis, ab d pain and fever, discharged 11/27/2017 11/26/[address] [facility]- Went Unrepsonsive, Hit head 2017 Hospitalization History [facility]- Back Pain 05/05/ 8
--- OUTSIDE RECORDS SUMMARY | 2020-06-18 14:41 | XMS REPORT ---
Author Author Sanjuanita JOHNSON [facility] Address [address] [place] [address] Care Team Providers Care Management And Budget Analyst Name Role Phone SHARIF JOHNSON Unavailable PROBLEMS Type Condition ICD9-CM Code XNU13-SU Code Onset Dates Condition S tatus SNOMED Code Problem Hypertension I10 Active 7677681 3 Problem Hyperlipidemia E78.5 Active 50501 004 Problem Coronary artery disease I25.10 Active 58911987 Problem Low back pain M54.5 Active 403260 009 Problem Other chronic pain G89.29 Active 8 6109620 Problem Ventral hernia without obstruction or gangrene K43 .9 Active 460294772 Problem Type 2 diabetes mellitus wit hout complication, without long-term current use of insulin E11.9 Active 532983771 Problem Anxiety F41.9 Active 13054062 Problem Peripheral vascular disease I73.9 Ac tive 053685719 Problem Insomnia G47.00 Active 494472593 Problem Microcytic anemia D50.9 Active 23 7906362 Problem Pharyngeal dysphagia R13.13 Active 99326979272111 Problem Other iron deficiency anemia D50.8 A ctive 42470633 Problem Reactive depression F32.9 Active 99249277 Problem Paroxysmal atrial fibrillation I48.0 Active 475420500 Problem 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 Active 53427810 Problem Encounter for suprapubic catheter care Z43.5 Active 666422205 Problem Neurogenic bladder N31.9 Active 3 92994106 ALLERGIES No Information ENCOUNTERS Encounter Location Date Diagnosis [facility] [address] [facility] [id number] [address] [place] [phone] Jan, Anxiety F41.9 and Strain of right shoulder, subsequent encounter S46.911D [facility] [address] [facility] [id number] [address] [place] [id number] Jan, [facility] [address] [place] [address] Jan, Neurogenic bladder N31.9 [place] [address] [id number] [address] [place] [phone] Dec, [place] [address] [id number] [address] [place] [phone] Dec, [place] [address] [id number] [address] [place] [phone] Dec, Anxiety F41.9 and Strain of right shoulder, subsequent encounter S46.911D [place] [address] [id number] [address] [place] [id number] 10 Dec, 2019 Other iron deficiency anemia D50.8 [place] [address] [id number] [address] [place] [id number] 04 Dec, 2019 Via [facility] [address] [place] [id number] Dec, Encounter for suprapubic catheter care Z 43.5 and Microcytic anemia D50.9 [place] [address] [id number] [address] [place] [phone] Dec, [place] [address] [id number] [address] [place] [phone] Nov, Anxiety F41.9 and Strain of right shoulder, subsequent encounter S46.911D [place] [address] [id number] [address] [place] [id number] Nov, Hypertension I10 Via [facility] [address] [place] [id number] Nov, Pneumonia of both lungs due to infectiou s organism, unspecified part of lung J18.9 and Suprapubic catheter Z93.59 [place] [address] [id number] [address] [place] [phone] Nov, Hypertension I10 and Reactiv e depression F32.9 [place] [address] [id number] [address] [place] [id number] Oct, Strain of right shoulder, scherer bsequent encounter S46.911D and Anxiety F41.9 [facility] [address] [id number] [address] [place] [phone] Oct, Via [employer] [address] [place] [id number] Oct, Suprapubic catheter Z93.59 and Candidias is, intertriginous B37.2 [facility] [address] [id number] [address] [place] [id number] Oct, Suprapubic catheter Z93.59 [facility] [address] [id number] [address] [place] [id number] Oct, Anxiety F41.9 and Strain of right shoulder, subsequent encounter S46.911D [facility] [address] [id number] [address] [place] [phone] Sep, [facility] [address] [id number] [address] [place] [phone] Sep, [facility] [address] [id number] [address] [place] [phone] Sep, Via [employer] [address] [place] [id number] Sep, Suprapubic catheter Z93.59 [facility] [address] [id number] [address] [place] [id number] Sep, Anxiety F41.9 and Strain of right shoulder, subsequent encounter S46.911D [facility] [address] [id number] [address] [place] [phone] Aug, [facility] [address] [id number] [address] [place] [id number] Aug, [facility] [address] [id number] [address] [place] [id number] Aug, Anxiety F41.9 and Strain of right shoulder, subsequent encounter S46.911D Via [employer] [address] [place] [id number] Aug, Suprapubic catheter Z93.59 [facility] [address] [id number] [address] [place] [phone] Jul, Strain of right shoulder, scherer bsequent encounter S46.911D and Anxiety F41.9 [facility] [address] [id number] [address] [place] [phone] Jul, Anxiety F41.9 [facility] [address] [id number] [address] [place] [id number] Jun, [facility] [address] [id number] [address] [place] [phone] Jun, [facility] [address] [id number] [address] [place] [id number] Jun, [facility] [address] [id number] [address] [place] [id number] Jun, Strain of right shoulder, scherer bsequent encounter S46.911D [facility] [address] [id number] [address] [place] [phone] Jun, Strain of right shoulder, scherer bsequent encounter S46.911D [facility] [address] [id number] [address] [place] [phone] Jun, Anxiety F41.9 [facility] [address] [place] [id number] Jun, Neurogenic bladder N31.9 and Anxiety F41 .9 [facility] [address] [place] [id number] May, Anxiety F41.9 [facility] [address] [id number] [address] [place] [phone] May, Dysuria R30.0 [facility] [address] [id number] [address] [place] [id number] May, Strain of right shoulder, scherer bsequent encounter S46.911D and Anxiety F41.9 [place] [id number] [id number] [address] [place] [id number] 27 Apr, 2019 Via [facility] [employer] [address] [place] [id number] Apr, Strain of right shoulder, subsequent enc ounter S46.911D [place] [address] [id number] [address] [place] [id number] 14 Apr, 2019 Strain of right shoulder, scherer bsequent encounter S46.911D and Anxiety F41.9 Via [facility] [address] [place] [id number] 13 Apr, 2019 Type 2 diabetes mellitus without complic ation, without long-term current use of insulin E11.9 and Neurogenic bladder N31.9 [facility] [address] [place] [id number] 11 Apr, 2019 Strain of right shoulder, subsequent enc ounter S46.911D ; History of GI bleed Z87.19 ; Neurogenic bladder N31.9 and Reactive depression F32.9 [place] [address] [id number] [address] [place] [id number] 10 Apr, 2019 Acute pain of left shoulder M25.512 [place] [address] [id number] [address] [place] [phone] 07 Apr, 2019 [place] [address] [id number] [address] [place] [id number] Apr, Anxiety F41.9 and 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 [facility] [address] [place] [id number] March, Gastrointestinal hemorrhage associated w ith acute gastritis K29.01 [place] [address] [id number] [address] [place] [phone] March, [facility] [address] [place] [id number] March, Bronchitis J40 [place] [address] [id number] [address] [place] [phone] March, Cough R05 [facility] [address] [id number] [address] [place] [id number] March, Other chronic pain G89.29 [facility] [address] [id number] [address] [place] [phone] March, Anxiety F41.9 [facility] [address] [id number] [address] [place] [phone] March, [facility] [address] [id number] [address] [place] [address] Feb, Other chronic pain G89.29 [facility] [address] [id number] [address] [place] [id number] Feb, Anxiety F41.9 [facility] [address] [id number] [address] [place] [address] Feb, Other chronic pain G89.29 [facility] [address] [place] [id number] Feb, Neurogenic bladder N31.9 and Suprapubic catheter Z93.59 [facility] [address] [id number] [address] [place] [id number] Jan, Anxiety F41.9 [facility] [address] [id number] [address] [place] [phone] Dec, Anxiety F41.9 [facility] [address] [id number] [address] [place] [id number] Dec, Other chronic pain G89.29 an d Anxiety F41.9 [facility] [address] [id number] [address] [place] [id number] Dec, [facility] [address] [place] [id number] Dec, Neurogenic bladder N31.9 and Suprapubic catheter Z93.59 [facility] [address] [id number] [address] [place] [phone] Nov, Other chronic pain G89.29 an d Anxiety F41.9 [facility] [address] [id number] [address] [place] [id number] Nov, Via [employer] [facility] [employer] [address] [place] [id number] Nov, Suprapubic catheter Z93.59 [facility] [address] [id number] [address] [place] [phone] Oct, Other chronic pain G89.29 an d Anxiety F41.9 [facility] [address] [id number] [address] [place] [id number] Oct, [facility] [address] [id number] [address] [place] [id number] Oct, Suprapubic catheter Z93.59 [facility] [address] [id number] [address] [place] [id number] Oct, Via [employer] [address] [place] [id number] Oct, [facility] [address] [id number] [address] [place] [phone] Oct, Anxiety F41.9 [facility] [address] [id number] [address] [place] [id number] Oct, Anxiety F41.9 [facility] [address] [place] [id number] Oct, Other chronic pain G89.29 [facility] [address] [id number] [address] [place] [phone] Sep, Other chronic pain G89.29 [facility] [employer] [address] [place] [id number] Sep, Suprapubic catheter Z93.59 and Cervicalg ia M54.2 [facility] [address] [id number] [address] [place] [id number] Sep, [facility] [address] [id number] [address] [place] [id number] Sep, [facility] [address] [id number] [address] [place] [phone] Sep, Via [employer] [address] [place] [id number] Aug, Cystitis N30.90 [facility] [address] [id number] [address] [place] [phone] Aug, [facility] [address] [id number] [address] [place] [phone] Aug, Other chronic pain G89.29 [facility] [address] [id number] [address] [place] [phone] Aug, Via [employer] [address] [place] [id number] Aug, Encounter for suprapubic catheter care Z 43.5 [facility] [address] [id number] [address] [place] [phone] Jul, Via [employer] [address] [place] [id number] Jul, [facility] [address] [id number] [address] [place] [id number] Jul, Other chronic pain G89.29 [facility] [address] [id number] [address] [place] [phone] Jul, [facility] [address] [id number] [address] [place] [phone] Jul, Via [employer] [address] [place] [id number] Jun, 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 [facility] [address] [id number] [address] [place] [phone] Jun, Other chronic pain G89.29 [facility] [address] [id number] [address] [place] [phone] Jun, Via [employer] [address] [place] [id number] May, Anxiety F41.9 ; Type 2 diabetes mellitus without complication, without long-term current use of insulin E11.9 ; Hypertension I10 ; Low back pain M54.5 ; Paroxysmal atrial fibrillation I48.0 and 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 [facility] [address] [id number] [address] [place] [phone] May, Other chronic pain G89.29 Via [employer] [address] [place] [id number] May, Low back pain M54.5 [place] [address] [id number] [address] [place] [address] May, [place] [address] [id number] [address] [place] [address] Apr, Other chronic pain G89.29 [place] [address] [id number] [address] [place] [id number] Apr, [facility] [address] [id number] [address] [place] [phone] Apr, Via [employer] [address] [place] [id number] Apr, Closed compression fracture of L3 lumbar vertebra with routine healing, subsequent encounter S32.030D [facility] [employer] [address] [place] [id number] Apr, Low back pain M54.5 [facility] [employer] [address] [place] [id number] Apr, Coccydynia M53.3 [facility] [address] [id number] [address] [place] [phone] March, [facility] [address] [id number] [address] [place] [phone] March, Other chronic pain G89.29 [facility] [address] [id number] [address] [place] [address] March, [facility] [address] [id number] [address] [place] [phone] March, [facility] [address] [id number] [address] [place] [phone] Feb, [facility] [address] [id number] [address] [place] [phone] Feb, Other chronic pain G89.29 [facility] [address] [place] [id number] Feb, Other chronic pain G89.29 and Anxiety F4 1.9 [facility] [address] [id number] [address] [place] [phone] Feb, [facility] [address] [id number] [address] [place] [address] Jan, [facility] [address] [id number] [address] [place] [id number] Jan, [facility] [address] [id number] [address] [place] [phone] Jan, [facility] [address] [id number] [address] [place] [phone] Jan, [facility] [address] [id number] [address] [place] [id number] Dec, [facility] [address] [place] [id number] Dec, Peripheral vascular disease I73.9 ; 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 ; Other chronic pain G89.29 ; Anxiety F41.9 ; Reactive depression F32.9 ; Insomnia G47.00 and Type 2 diabetes mellitus without complication, without long-term current use of insulin E11.9 [facility] [place] [address] [id number] [place] [address] Nov, [facility] [address] [id number] [place] [id number] Nov, Anxiety F41.9 [facility] [address] [id number] [address] [place] [address] Nov, [facility] [address] [id number] [place] [id number] Nov, Anxiety F41.9 [facility] [address] [place] [id number] Nov, Status post surgery Z98.890 ; Confused R 41.0 ; Anxiety F41.9 and Other chronic pain G89.29 [facility] [address] [id number] [place] [id number] Nov, Other chronic pain G89.29 [facility] [address] [id number] [address] [place] [address] Oct, [facility] [address] [id number] [place] [id number] Oct, Other chronic pain G89.29 [facility] [address] [id number] [address] [place] [phone] Oct, Anxiety F41.9 [facility] [address] [id number] [place] [id number] Sep, Other chronic pain G89.29 [facility] [address] [id number] [place] [id number] Sep, [facility] [employer] [facility] [employer] [address] [place] [id number] Aug, Dysuria R30.0 and Anxiety F41.9 [facility] [address] [id number] [address] [place] [phone] Aug, [facility] [address] [id number] [place] [id number] Aug, Other chronic pain G89.29 [facility] [address] [facility] [id number] [address] [place] [id number] Jul, Other chronic pain G89.29 [facility] [address] [id number] [place] [id number] Jun, [facility] [address] [id number] [place] [id number] Jun, Other chronic pain G89.29 [facility] [address] [id number] [address] [place] [id number] Jun, [facility] [address] [id number] [address] [place] [address] May, Other chronic pain G89.29 [facility] [address] [id number] [address] [place] [address] Apr, Other chronic pain G89.29 [facility] [address] [place] [id number] Apr, Reactive depression F32.9 and Pharyngeal dysphagia R13.13 [facility] [address] [id number] [address] [place] [phone] Apr, Urinary tract infection with out hematuria, site unspecified N39.0 [facility] [address] [id number] [address] [place] [address] March, Other chronic pain G89.29 [facility] [address] [id number] [address] [place] [id number] Feb, Other chronic pain G89.29 [facility] [address] [id number] [address] [place] [id number] Feb, [facility] [address] [id number] [place] [id number] Feb, [facility] [employer] [address] [place] [id number] Feb, Dysuria R30.0 and Ventral hernia without obstruction or gangrene K43.9 [facility] [address] [id number] [address] [place] [address] Jan, Other chronic pain G89.29 [facility] [address] [id number] [id number] Dec, Other chronic pain G89.29 [facility] [address] [id number] [address] [place] [id number] Nov, Other chronic pain G89.29 [facility] [address] [place] [id number] Nov, Lymphadenitis I88.9 [facility] [address] [id number] [address] [place] [id number] Nov, Other chronic pain G89.29 [facility] [address] [id number] [address] [place] [id number] Nov, [facility] [id number] [place] [id number] Nov, Other chronic pain G89.29 [facility] [address] [place] [id number] Oct, Low back pain M54.5 ; Hypertension I10 a nd Type 2 diabetes mellitus without complication, without long-term current use of insulin E11.9 [facility] [address] [id number] [address] [place] [id number] Oct, [facility] [address] [id number] [address] [place] [id number] Oct, [facility] [address] [id number] [address] [place] [id number] Oct, [facility] [address] [id number] [address] [place] [id number] Oct, [facility] [address] [id number] [address] [place] [id number] Sep, [facility] [address] [id number] [address] [place] [id number] Sep, [facility] [address] [id number] [address] [place] [phone] Aug, Other chronic pain G89.29 [facility] [address] [id number] [address] [place] [id number] Jul, [facility] [address] [id number] [address] [place] [id number] Jul, [facility] [address] [id number] [address] [place] [id number] Jul, [facility] [address] [id number] [address] [place] [phone] Jun, [facility] [address] [id number] [address] [place] [phone] Jun, [facility] [address] [place] [id number] Jun, Low back pain M54.5 ; Other chronic pain G89.29 and Coronary artery disease I25.10 [facility] [address] [id number] [address] [place] [id number] Jun, [facility] [address] [id number] [address] [place] [phone] May, [facility] [address] [id number] [address] [place] [phone] May, [facility] [address] [id number] [address] [place] [address] May, Other chronic pain G89.29 [facility] [address] [id number] [address] [place] [address] May, [facility] [address] [id number] [address] [place] [address] Apr, [facility] [address] [id number] [address] [place] [address] Apr, Acute cystitis without hemat uria N30.00 [facility] [address] [id number] [address] [place] [address] Apr, Acute cystitis without hemat uria N30.00 ; Coronary artery disease I25.10 ; Low back pain M54.5 and Other chronic pain G89.29 [facility] [address] [id number] [address] [place] [id number] Apr, Other chronic pain G89.29 [facility] [address] [id number] [address] [place] [phone] March, Other chronic pain G89.29 [facility] [address] [id number] [address] [place] [phone] Feb, [facility] [address] [id number] [address] [place] [phone] Feb, Arthritis M19.90 [facility] [address] [id number] [address] [place] [phone] Feb, [facility] [address] [id number] [address] [place] [phone] Jan, [facility] [address] [id number] [address] [place] [phone] Jan, [facility] [address] [id number] [address] [place] [address] Jan, Other chronic pain G89.29 [facility] [address] [id number] [address] [place] [phone] Jan, Hypertension I10 ; Coronary artery disease I25.10 and Insomnia G47.00 [facility] [address] [id number] [address] [place] [phone] Jan, [facility] [address] [id number] [address] [place] [address] Dec, Right hip pain M25.551 [facility] [address] [id number] [address] [place] [phone] Dec, [facility] [address] [id number] [address] [place] [phone] Dec, [facility] [address] [id number] [address] [place] [phone] Dec, [facility] [address] [id number] [address] [place] [phone] Dec, Other chronic pain G89.29 [facility] [address] [id number] [address] [place] [phone] Dec, [facility] [address] [id number] [address] [place] [phone] Nov, [facility] [address] [id number] [address] [place] [id number] Nov, Other chronic pain G89.29 [facility] [address] [id number] [address] [place] [address] Nov, Right hip pain M25.551 and C oronary artery disease I25.10 [facility] [address] [id number] [address] [place] [phone] Nov, Other chronic pain G89.29 [facility] [address] [id number] [address] [place] [phone] Oct, [facility] [address] [facility] [id number] [address] [place] [id number] Oct, [facility] [address] [facility] [id number] [address] [place] [phone] Sep, [facility] [address] [id number] [address] [place] [phone] Sep, [facility] [address] [facility] [id number] [address] [place] [phone] Aug, [facility] [address] [facility] [id number] [address] [place] [phone] Aug, Hypertension I10 ; Coronary artery disease I25.10 and Arthritis M19.90 [facility] [address] [id number] [address] [place] [phone] Jun, [facility] [address] [id number] [address] [place] [address], [place] [address] Jun, Essential hypertension, jayson gn 401.1 ; Other chronic pain 338.29 and Chronic airway obstruction, not elsewhere classified 496 [facility] [address] [id number] [address] [place] [address], [place] [address] Jun, [facility] [address] [id number] [address] [place] [address], [place] [address] Jun, [facility] [address] [id number] [address] [place] [address], [place] [address] Jun, [facility] [address] [id number] [address] [place] [address], [place] [address] May, [facility] [address] [id number] [address] [place] [address], [place] [address] May, [facility] [address] [id number] [address] [place] [address], [place] [address] Apr, [facility] [address] [id number] [address] [place] [phone] Apr, [facility] [address] [id number] [address] [place] [address], [place] [address] Apr, [facility] [address] [id number] [address] [place] [phone] March, [facility] [address] [id number] [address] [place] [phone] March, [facility] [address] [id number] [address] [place] [phone] March, [facility] [address] [id number] [address] [place] [id number] March, [facility] [address] [id number] [address] [place] [phone] March, Sialadenitis 527.2 [facility] [address] [id number] [address] [place] [phone] Feb, [facility] [address] [id number] [address] [place] [address], [place] [address] Feb, [facility] [address] [id number] [address] [place] [address], [place] [address] Feb, [facility] [address] [id number] [address] [place] [address], [place] [address] Feb, [facility] [address] [id number] [address] [place] [address], [place] [address] Feb, [facility] [address] [id number] [address] [place] [address], [place] [address] Jan, [facility] [address] [id number] [address] [place] [address], [place] [address] Jan, [facility] [address] [id number] [address] [place] [address], [place] [address] Jan, [facility] [address] [id number] [address] [place] [address], [place] [address] Jan, [facility] [address] [id number] [address] [place] [address], [place] [address] Jan, [facility] [address] [id number] [address] [place] [address], [place] [address] Jan, [facility] [address] [id number] [address] [place] [address], [place] [address] Dec, 2014 [facility] [address] [id number] [address] [place] [address], [place] [address] Dec, 2014 [facility] [address] [id number] [address] [place] [address], [place] [address] Dec, 2014 [facility] [address] [id number] [address] [place] [address], [place] [address] Dec, 2014 [facility] [address] [id number] [address] [place] [address], [place] [address] Dec, 2014 [facility] [address] [id number] [address] [place] [address], [place] [address] Dec, [facility] [address] [id number] [address] [place] [address], [place] [address] Nov, [facility] [address] [id number] [address] [place] [address], [place] [address] Nov, [facility] [address] [id number] [address] [place] [address], [place] [address] Nov, [facility] [address] [id number] [address] [place] [address], [place] [address] Nov, [facility] [address] [id number] [address] [place] [address], [place] [address] Nov, [facility] [address] [id number] [address] [place] [address], [place] [address] Nov, [facility] [address] [id number] [address] [place] [address], [place] [address] Nov, [facility] [address] [id number] [address] [place] [address], [place] [address] Nov, [facility] [address] [id number] [address] [place] [address], [place] [address] Nov, [facility] [address] [id number] [address] [place] [address], [place] [address] Nov, [facility] [address] [id number] [address] [place] [address], [place] [address] Nov, [facility] [address] [id number] [address] [place] [address], [place] [address] Nov, [facility] [address] [id number] [address] [place] [address], [place] [address] Nov, [facility] [address] [id number] [address] [place] [address], [place] [address] Nov, [facility] [address] [id number] [address] [place] [address], [place] [address] Oct, [facility] [address] [id number] [address] [place] [address], [place] [address] Oct, [facility] [address] [id number] [address] [place] [address], [place] [address] Oct, [facility] [address] [id number] [address] [place] [address], [place] [address] 18 Oct, 2014 [facility] [address] [id number] [address] [place] [address], [place] [address] Oct, [facility] [address] [id number] [address] [place] [address], [place] [address] Oct, [facility] [address] [id number] [address] [place] [address], [place] [address] Oct, [facility] [address] [id number] [address] [place] [address], [place] [address] Oct, [facility] [address] [id number] [address] [place] [address], [place] [address] Oct, [facility] [address] [id number] [address] [place] [address], [place] [address] Sep, [facility] [address] [id number] [address] [place] [address], [place] [address] Sep, [facility] [address] [id number] [address] [place] [address], [place] [address] Sep, [facility] [address] [id number] [address] [place] [address], [place] [address] Sep, [facility] [address] [id number] [address] [place] [address], [place] [address] Sep, [facility] [address] [id number] [address] [place] [address], [place] [address] Sep, [facility] [address] [id number] [address] [place] [address], [place] [address] Sep, [facility] [address] [id number] [address] [place] [address], [place] [address] Sep, [facility] [address] [id number] [address] [place] [address], [place] [address] Sep, [facility] [address] [id number] [address] [place] [address], [place] [address] Sep, [facility] [address] [id number] [address] [place] [address], [place] [address] Sep, [facility] [address] [id number] [address] [place] [address], [place] [address] Sep, [facility] [address] [id number] [address] [place] [address], [place] [address] Aug, [facility] [address] [id number] [address] [place] [address], [place] [address] Aug, [facility] [address] [id number] [address] [place] [address], [place] [address] Aug, [facility] [address] [id number] [address] [place] [address], [place] [address] Aug, [facility] [address] [id number] [address] [place] [address], [place] [address] Aug, [facility] [address] [id number] [address] [place] [address], [place] [address] Aug, [facility] [address] [id number] [address] [place] [address], [place] [address] Aug, [facility] [address] [id number] [address] [place] [address], [place] [address] Aug, [facility] [address] [id number] [address] [place] [address], [place] [address] 30 Jul, 2014 [facility] [address] [id number] [address] [place] [address], [place] [address] 30 Jul, 2014 [facility] [address] [id number] [address] [place] [address], [place] [address] 30 Jul, 2014 [facility] [address] [id number] [facility] [place] [address] 30 Jul, 2013 [facility] [address] [id number] [facility] [address] 25 Jul, 2013 [facility] [address] [id number] [facility] [address] 25 Jul, 2013 [facility] [address] [id number] [facility] [address] 15 Jul, 2014 [facility] [address] [id number] [address] [place] [address], [place] [address] 15 Jul, 2014 [facility] [address] [id number] [address] [place] [address], [place] [address] Jul, [facility] [address] [id number] [address] [place] [address], [place] [address] Jul, [facility] [address] [id number] [address] [place] [address], [place] [address] Jun, [facility] [address] [id number] [address] [place] [address], [place] [address] Jun, [facility] [address] [id number] [address] [place] [address], [place] [address] Jun, [facility] [address] [id number] [address] [place] [address], [place] [address] Jun, [facility] [address] [id number] [address] [place] [address], [place] [address] Jun, [facility] [address] [id number] [address] [place] [address], [place] [address] Jun, [facility] [address] [id number] [address] [place] [address], [place] [address] Jun, [facility] [address] [id number] [address] [place] [address], [place] [address] Jun, [facility] [address] [id number] [address] [place] [address], [place] [address] Jun, [facility] [address] [id number] [facility] [address] Jun, [facility] [address] [id number] [address] [place] [address], [place] [address] Jun, [facility] [address] [id number] [address] [place] [address], [place] [address] Jun, [facility] [address] [id number] [address] [place] [address], [place] [address] Jun, [facility] [address] [id number] [address] [place] [address], [place] [address] Jun, [facility] [address] [id number] [address] [place] [address], [place] [address] Jun, [facility] [address] [id number] [address] [place] [address], [place] [address] Jun, [facility] [address] [id number] [address] [place] [address], [place] [address] Jun, [facility] [address] [id number] [address] [place] [address], [place] [address] Jun, [facility] [address] [id number] [address] [place] [address], [place] [address] Jun, [facility] [address] [id number] [address] [place] [address], [place] [address] Jun, [facility] [address] [id number] [address] [place] [address], [place] [address] Jun, [facility] [address] [id number] [address] [place] [address], [place] [address] Jun, [facility] [address] [id number] [address] [place] [address], [place] [address] May, [facility] [address] [id number] [address] [place] [address], [place] [address] May, [facility] [address] [id number] [facility] [address] May, [facility] [address] [id number] [facility] [address] May, [facility] [address] [id number] [facility] [address] May, [facility] [address] [id number] [address] [place] [address], [place] [address] May, 2013 [facility] [address] [id number] [address] [place] [address], [place] [address] May, 2013 [facility] [address] [id number] [address] [place] [address], [place] [address] May, [facility] [address] [id number] [address] [place] [address], [place] [address] May, [facility] [address] [id number] [address] [place] [address], [place] [address] May, [facility] [address] [id number] [address] [place] [address], [place] [address] May, [facility] [address] [id number] [address] [place] [address], [place] [address] May, [facility] [address] [id number] [address] [place] [address], [place] [address] May, [facility] [address] [id number] [address] [place] [address], [place] [address] Apr, [facility] [address] [id number] [address] [place] [address], [place] [address] Apr, [facility] [address] [id number] [address] [place] [address], [place] [address] Apr, [facility] [address] [id number] [address] [place] [address], [place] [address] Apr, [facility] [address] [id number] [address] [place] [address], [place] [address] Apr, [facility] [address] [id number] [address] [place] [address], [place] [address] Apr, [facility] [address] [id number] [address] [place] [address], [place] [address] Apr, [facility] [address] [id number] [address] [place] [address], [place] [address] Apr, [facility] [address] [id number] [address] [place] [address], [place] [address] Apr, [facility] [address] [id number] [address] [place] [address], [place] [address] March, [facility] [address] [id number] [address] [place] [address], [place] [address] March, [facility] [address] [id number] [address] [place] [address], [place] [address] March, [facility] [address] [id number] [address] [place] [address], [place] [address] March, [facility] [address] [id number] [address] [place] [address], [place] [address] March, [facility] [address] [id number] [address] [place] [address], [place] [address] March, [facility] [address] [id number] [address] [place] [address], [place] [address] March, [facility] [address] [id number] [address] [place] [address], [place] [address] March, [facility] [address] [id number] [address] [place] [address], [place] [address] March, [facility] [address] [id number] [address] [place] [address], [place] [address] March, [facility] [address] [id number] [address] [place] [address], [place] [address] March, [facility] [address] [id number] [address] [place] [address], [place] [address] March, [facility] [address] [id number] [address] [place] [address], [place] [address] March, [facility] [address] [id number] [address] [place] [address], [place] [address] March, [facility] [address] [id number] [address] [place] [address], [place] [address] March, [facility] [address] [id number] [address] [place] [address], [place] [address] March, [facility] [address] [id number] [address] [place] [address], [place] [address] March, [facility] [address] [id number] [address] [place] [address], [place] [address] March, [facility] [address] [id number] [address] [place] [address], [place] [address] March, [facility] [address] [id number] [address] [place] [address], [place] [address] March, [facility] [address] [id number] [address] [place] [address], [place] [address] Feb, [facility] [address] [id number] [address] [place] [address], [place] [address] Feb, [facility] [address] [id number] [address] [place] [address], [place] [address] Feb, [facility] [address] [id number] [address] [place] [address], [place] [address] Feb, [facility] [address] [id number] [address] [place] [address], [place] [address] Feb, [facility] [address] [id number] [address] [place] [address], [place] [address] Feb, [facility] [facility] [address] [id number] [address] [place] [address], [place] [address] Feb, [facility] [address] [id number] [facility] [place] [address] 11 Feb, 2014 [facility] [address] [id number] [facility] [place] [address] Jan, [facility] [address] [id number] [facility] [place] [address] Jan, [facility] [address] [id number] [address] [place] [address], [place] [address] Jan, [facility] [address] [id number] [address] [place] [address], [place] [address] Jan, [facility] [address] [id number] [address] [place] [address], [place] [address] Jan, [facility] [address] [id number] [address] [place] [address], [place] [address] Jan, [facility] [address] [id number] [address] [place] [address], [place] [address] Jan, [facility] [address] [id number] [address] [place] [address], [place] [address] Jan, [facility] [address] [id number] [address] [place] [address], [place] [address] Jan, [facility] [address] [id number] [address] [place] [address], [place] [address] Jan, [facility] [address] [id number] [address] [place] [address], [place] [address] Dec, [facility] [address] [id number] [address] [place] [address], [place] [address] Dec, [facility] [address] [id number] [address] [place] [address], [place] [address] Dec, [facility] [address] [id number] [address] [place] [address], [place] [address] 2013 [facility] [address] [id number] [address] [place] [address], [place] [address] 2013 [facility] [address] [id number] [address] [place] [address], [place] [address] Dec, [facility] [address] [id number] [address] [place] [address], [place] [address] Dec, [facility] [address] [id number] [address] [place] [address], [place] [address] Dec, [facility] [address] [id number] [address] [place] [address], [place] [address] Nov, [facility] [address] [id number] [address] [place] [address], [place] [address] Nov, [facility] [address] [id number] [address] [place] [address], [place] [address] Nov, [facility] [address] [id number] [address] [place] [address], [place] [address] Nov, [facility] [address] [id number] [address] [place] [address], [place] [address] Nov, [facility] [address] [id number] [address] [place] [address], [place] [address] Nov, [facility] [address] [id number] [address] [place] [address], [place] [address] Nov, [facility] [address] [id number] [address] [place] [address], [place] [address] Nov, [facility] [address] [id number] [address] [place] [address], [place] [address] Nov, [facility] [address] [id number] [address] [place] [address], [place] [address] Nov, [facility] [address] [id number] [address] [place] [address], [place] [address] Nov, [facility] [address] [id number] [address] [place] [address], [place] [address] Nov, [facility] [address] [id number] [address] [place] [address], [place] [address] [address], [address] [facility] [address] [id number] [address] [place] [address], [place] [address] 30 Oct, 2013 [facility] [address] [id number] [address] [place] [address], [place] [address] Oct, [facility] [address] [id number] [address] [place] [address], [place] [address] Oct, [facility] [address] [id number] [address] [place] [address], [place] [address] Oct, [facility] [address] [id number] [address] [place] [address], [place] [address] Oct, [facility] [address] [id number] [address] [place] [address], [place] [address] Oct, [facility] [address] [id number] [address] [place] [address], [place] [address] Oct, [facility] [address] [id number] [address] [place] [address], [place] [address] [address], [address] [facility] [address] [id number] [address] [place] [address], [place] [address] Oct, [facility] [address] [id number] [address] [place] [address], [place] [address] [address], [address] [facility] [address] [id number] [address] [place] [address], [place] [address] Oct, [facility] [address] [id number] [address] [place] [address], [place] [address] Oct, [facility] [address] [id number] [address] [place] [address], [place] [address] Oct, [facility] [address] [id number] [address] [place] [address], [place] [address] Oct, [facility] [address] [id number] [address] [place] [address], [place] [address] Sep, [facility] [address] [id number] [address] [place] [address], [place] [address] 14 Sep, 2013 [facility] [address] [id number] [address] [place] [address], [place] [address] Sep, [facility] [address] [id number] [address] [place] [address], [place] [address] Sep, [facility] [address] [id number] [address] [place] [address], [place] [address] Sep, [facility] [address] [id number] [address] [place] [address], [place] [address] Sep, [facility] [address] [id number] [address] [place] [address], [place] [address] Sep, [facility] [address] [id number] [address] [place] [address], [place] [address] Sep, [facility] [address] [id number] [address] [place] [address] Sep, [facility] [address] [id number] [address] [place] [address], [place] [address] Sep, [facility] [address] [id number] [address] [place] [address] Aug, [facility] [address] [id number] [address] [place] [address] Aug, [facility] [address] [id number] [address] [place] [address] Aug, [facility] [address] [id number] [address] [place] [address] Aug, [facility] [address] [id number] [address] [place] [address] Aug, [facility] [address] [id number] [address] [place] [address] Aug, [facility] [address] [id number] [address] [place] [address], [place] [address] 23 Aug, 2012 [facility] [address] [id number] [address] [place] [address], [place] [address] 23 Aug, 2012 [facility] [address] [id number] [address] [place] [address], [place] [address] 22 Aug, 2012 [facility] [address] [id number] [address] [place] [address], [place] [address] 22 Aug, 2012 [facility] [address] [id number] [address] [place] [address], [place] [address] 18 Aug, 2012 [facility] [address] [id number] [address] [place] [address], [place] [address] 18 Aug, 2012 [facility] [address] [id number] [address] [place] [address], [place] [address] 18 Aug, 2012 [facility] [address] [id number] [address] [place] [address], [place] [address] 18 Aug, 2012 [facility] [address] [id number] [address] [place] [address], [place] [address] 17 Aug, 2012 [facility] [address] [id number] [address] [place] [address], [place] [address] 14 Aug, 2013 [facility] [address] [id number] [address] [place] [address], [place] [address] 14 Aug, 2013 [facility] [address] [id number] [address] [place] [address], [place] [address] 01 Aug, 2013 [facility] [address] [id number] [address] [place] [address], [place] [address] 20 Jul, 2012 [facility] [address] [id number] [address] [place] [address], [place] [address] 19 Sep, 2012 [facility] [address] [id number] [address] [place] [address], [place] [address] 18 Jul, 2012 [facility] [address] [id number] [address] [place] [address], [place] [address] 11 Jul2012 [facility] [address] [id number] [facility] [place] [address] Jul, [facility] [address] [id number] [address] [place] [address], [place] [address] Jun, [facility] [address] [id number] [address] [place] [address], [place] [address] Jun, [facility] [address] [id number] [address] [place] [address], [place] [address] Jun, [facility] [address] [id number] [address] [place] [address], [place] [address] Jun, [facility] [address] [id number] [address] [place] [address], [place] [address] Jun, [facility] [address] [id number] [address] [place] [address], [place] [address] Jun, [facility] [address] [id number] [address] [place] [address], [place] [address] Jun, [facility] [address] [id number] [address] [place] [address], [place] [address] Jun, [facility] [address] [id number] [address] [place] [address], [place] [address] Jun, [facility] [address] [id number] [address] [place] [address], [place] [address] Jun, [facility] [address] [id number] [address] [place] [address], [place] [address] May, [facility] [address] [id number] [address] [place] [address], [place] [address] May, [facility] [address] [id number] [address] [place] [address], [place] [address] May, [facility] [address] [id number] [address] [place] [address], [place] [address] May, [facility] [address] [id number] [address] [place] [address], [place] [address] May, [facility] [address] [id number] [address] [place] [address], [place] [address] 16 May, 2013 [facility] [address] [id number] [address] [place] [address], [place] [address] May, [facility] [address] [id number] [address] [place] [address], [place] [address] May, [facility] [address] [id number] [address] [place] [address], [place] [address] May, [facility] [address] [id number] [address] [place] [address], [place] [address] Apr, [facility] [address] [id number] [address] [place] [address], [place] [address] Apr, [facility] [address] [id number] [address] [place] [address], [place] [address] Apr, [facility] [address] [id number] [address] [place] [address], [place] [address] Apr, [facility] [address] [id number] [address] [place] [address], [place] [address] Apr, [facility] [address] [id number] [address] [place] [address], [place] [address] Apr, [facility] [address] [id number] [address] [place] [address], [place] [address] Apr, [facility] [address] [id number] [address] [place] [address], [place] [address] March, [facility] [address] [id number] [address] [place] [address], [place] [address] Feb, [facility] [address] [id number] [address] [place] [address], [place] [address] Feb, [facility] [address] [id number] [address] [place] [address], [place] [address] Feb, [facility] [address] [id number] [address] [place] [address], [place] [address] 28 Jan, 2013 [facility] [address] [id number] [address] [place] [address], [place] [address] 21 Jan, 2013 [facility] [address] [id number] [address] [place] [address], [place] [address] 19 Jan, 2013 [facility] [address] [id number] [address] [place] [address], [place] [address] 14 Jan, 2013 [facility] [address] [id number] [address] [place] [address], [place] [address] 12 Jan, 2013 [facility] [address] [id number] [address] [place] [address], [place] [address] 08 Jan, 2013 [facility] [address] [id number] [address] [place] [address], [place] [address] 07 Jan, 2013 [facility] [address] [id number] [address] [place] [address], [place] [address] 04 Jan, 2013 [facility] [address] [id number] [address] [place] [address], [place] [address] 28 Dec, 2012 [facility] [address] [id number] [address] [place] [address], [place] [address] [address], [address] [facility] [address] [id number] [address] [place] [address], [place] [address] 13 Dec, 2012 [facility] [address] [id number] [address] [place] [address], [place] [address] 11 Dec, 2012 [facility] [address] [id number] [address] [place] [address], [place] [address] 07 Dec, 2012 [facility] [address] [id number] [address] [place] [address], [place] [address] 06 Dec, 2012 [facility] [address] [id number] [address] [place] [address], [place] [address] 05 Dec, 2012 [facility] [address] [id number] [address] [place] [address], [place] [address] 31 Nov, 2012 [facility] [address] [id number] [address] [place] [address], [place] [address] 24 Nov, 2012 [facility] [address] [id number] [address] [place] [address], [place] [address] 18 Nov, 2012 [facility] [address] [id number] [address] [place] [address], [place] [address] 15 Nov, 2012 [facility] [address] [id number] [address] [place] [address], [place] [address] Nov, [facility] [address] [id number] [address] [place] [address], [place] [address] Nov, [facility] [address] [id number] [address] [place] [address], [place] [address] Nov, [facility] [address] [id number] [address] [place] [address], [place] [address] Oct, [facility] [address] [id number] [address] [place] [address], [place] [address] 31 Oct, 2012 [facility] [address] [id number] [address] [place] [address], [place] [address] Oct, [facility] [address] [id number] [address] [place] [address], [place] [address] Oct, [facility] [address] [id number] [address] [place] [address], [place] [address] 17 Oct, 2012 [facility] [address] [id number] [address] [place] [address], [place] [address] 17 Oct, 2012 [facility] [address] [id number] [address] [place] [address], [place] [address] 07 Oct, 2012 [facility] [address] [id number] [address] [place] [address], [place] [address] 07 Oct, 2012 [facility] [address] [id number] [address] [place] [address], [place] [address] 05 Oct, 2012 [facility] [address] [id number] [address] [place] [address], [place] [address] Oct, [facility] [address] [id number] [address] [place] [address], [place] [address] Oct, [facility] [address] [id number] [address] [place] [address], [place] [address] Oct, [facility] [address] [id number] [address] [place] [address], [place] [address] Sep, [facility] [address] [id number] [address] [place] [address], [place] [address] Sep, [facility] [address] [id number] [address] [place] [address], [place] [address] Sep, [facility] [address] [id number] [address] [place] [address], [place] [address] Sep, [facility] [address] [id number] [address] [place] [address], [place] [address] Sep, [facility] [address] [id number] [address] [place] [address], [place] [address] Sep, [facility] [address] [id number] [address] [place] [address], [place] [address] Sep, [facility] [address] [id number] [address] [place] [address], [place] [address] Sep, [facility] [address] [id number] [address] [place] [address], [place] [address] Sep, [facility] [address] [id number] [address] [place] [address], [place] [address] Sep, [facility] [address] [id number] [address] [place] [address], [place] [address] Sep, [facility] [address] [id number] [address] [place] [address], [place] [address] Aug, [facility] [address] [id number] [address] [place] [address], [place] [address] Aug, [facility] [address] [id number] [address] [place] [address], [place] [address] Aug, [facility] [address] [id number] [address] [place] [address], [place] [address] Aug, [facility] [address] [id number] [address] [place] [address], [place] [address] Aug, [facility] [address] [id number] [address] [place] [address], [place] [address] Aug, [facility] [address] [id number] [address] [place] [address], [place] [address] Aug, [facility] [address] [id number] [address] [place] [address], [place] [address] Aug, [facility] [address] [id number] [address] [place] [address], [place] [address] Aug, [facility] [address] [id number] [address] [place] [address], [place] [address] Aug, [facility] [address] [id number] [address] [place] [address], [place] [address] Jul, [facility] [address] [id number] [address] [place] [address], [place] [address] 20 Jul, 2012 [facility] [address] [id number] [address] [place] [address], [place] [address] 10 Jul, 2012 [facility] [address] [id number] [address] [place] [address], [place] [address] 06 Jul, 2012 [facility] [address] [id number] [address] [place] [address], [place] [address] 30 Jun, 2012 [facility] [address] [id number] [address] [place] [address], [place] [address] Jun, [facility] [address] [id number] [address] [place] [address], [place] [address] 16 Jun, 2012 [facility] [address] [id number] [address] [place] [address], [place] [address] Jun, [facility] [address] [id number] [address] [place] [address], [place] [address] Jun, [facility] [address] [id number] [address] [place] [address], [place] [address] Jun, [facility] [address] [id number] [address] [place] [address], [place] [address] Jun, [facility] [address] [id number] [address] [place] [address], [place] [address] May, [facility] [address] [id number] [address] [place] [address], [place] [address] May, [facility] [address] [id number] [address] [place] [address], [place] [address] May, [facility] [address] [id number] [address] [place] [address], [place] [address] May, [facility] [address] [id number] [address] [place] [address], [place] [address] May, [facility] [address] [id number] [address] [place] [address], [place] [address] Apr, [facility] [address] [id number] [address] [place] [address], [place] [address] Apr, [facility] [address] [id number] [address] [place] [address], [place] [address] Apr, [facility] [address] [id number] [address] [place] [address], [place] [address] Apr, [facility] [address] [id number] [address] [place] [address], [place] [address] Apr, [facility] [address] [id number] [address] [place] [address], [place] [address] March, [facility] [address] [id number] [address] [place] [address], [place] [address] March, [facility] [address] [id number] [address] [place] [address], [place] [address] March, [facility] [address] [id number] [address] [place] [address], [place] [address] March, [facility] [address] [id number] [address] [place] [address], [place] [address] March, [facility] [address] [id number] [address] [place] [address], [place] [address] March, [facility] [address] [id number] [address] [place] [address], [place] [address] March, [facility] [address] [id number] [address] [place] [address], [place] [address] March, [facility] [address] [id number] [address] [place] [address], [place] [address] March, [facility] [address] [id number] [address] [place] [address], [place] [address] March, [facility] [address] [id number] [address] [place] [address], [place] [address] 30 Feb, 2012 [facility] [address] [id number] [address] [place] [address], [place] [address] Feb, [facility] [address] [id number] [address] [place] [address], [place] [id number] Feb, [facility] [address] [id number] [address] [place] [address], [place] [address] Feb, [facility] [address] [id number] [address] [place] [address], [place] [address] Feb, [facility] [address] [id number] [address] [place] [address], [place] [address] Feb, [facility] [address] [id number] [address] [place] [address], [place] [address] Feb, [facility] [address] [id number] [address] [place] [address], [place] [address] Feb, [facility] [address] [id number] [address] [place] [address], [place] [address] Feb, [facility] [address] [id number] [address] [place] [address], [place] [address] 08 Jan, 2012 [facility] [address] [id number] [address] [place] [address], [place] [address] Jan, [facility] [address] [id number] [address] [place] [address], [place] [address] Jan, [facility] [address] [id number] [address] [place] [address], [place] [address] Jan, [facility] [address] [id number] [address] [place] [address], [place] [address] Dec, [facility] [address] [id number] [address] [place] [address], [place] [address] Dec, [facility] [address] [id number] [address] [place] [address], [place] [address] Nov, [facility] [address] [id number] [address] [place] [address], [place] [address] Nov, [facility] [address] [id number] [address] [place] [address], [place] [address] Nov, [facility] [address] [id number] [address] [place] [address], [place] [address] Nov, [facility] [address] [id number] [address] [place] [address], [place] [address] Nov, [facility] [address] [id number] [address] [place] [address], [place] [address] Oct, [facility] [address] [id number] [address] [place] [address], [place] [address] Oct, [facility] [address] [id number] [address] [place] [address], [place] [address] Oct, [facility] [address] [id number] [address] [place] [id number] Oct, [facility] [address] [facility] [id number] [address] [place] [id number] Oct, [facility] [address] [facility] [id number] [address] [place] [id number] Oct, [facility] [address] [facility] [id number] [address] [place] [id number] Oct, [facility] [address] [facility] [id number] [address] [place] [phone] Oct, [facility] [address] [facility] [id number] [address] [place] [phone] Sep, IMMUNIZATIONS No Known Immunizations SOCIAL HISTORY [...] History No Surgical history information Hospitalization History [facility]- Urosepsis, ab d pain and fever, discharged 11/27/2017 11/26/2017 Hospitalization History [facility]- Went Unrepsonsive, Hit head 2017 Hospitalization History [facility]- Back Pain 8
--- OUTSIDE RECORDS SUMMARY | 2020-06-18 14:41 | XMS REPORT ---
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 Name Role Phone SHARIF JOHNSON Unavailable PROBLEMS Type Condition ICD9-CM Code ZMA99-TV Code Onset Dates Condition S tatus SNOMED Code Problem Hypertension I10 Active 1876856 3 Problem Hyperlipidemia E78.5 Active 16037 004 Problem Coronary artery disease I25.10 Active 80514752 Problem Low back pain M54.5 Active 339333 009 Problem Other chronic pain G89.29 Active 8 7241825 Problem Ventral hernia without obstruction or gangrene K43 .9 Active 749034394 Problem Type 2 diabetes mellitus wit hout complication, without long-term current use of insulin E11.9 Active 835379768 Problem Anxiety F41.9 Active 48296499 Problem Peripheral vascular disease I73.9 Ac tive 750350406 Problem Insomnia G47.00 Active 404897387 Problem Microcytic anemia D50.9 Active 23 5647025 Problem Pharyngeal dysphagia R13.13 Active 63667845907547 Problem Other iron deficiency anemia D50.8 A ctive 45160057 Problem Reactive depression F32.9 Active 94774498 Problem Paroxysmal atrial fibrillation I48.0 Active 782153022 Problem 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 Active 49391009 Problem Encounter for suprapubic catheter care Z43.5 Active 488312304 Problem Neurogenic bladder N31.9 Active 3 01464961 ALLERGIES No Information ENCOUNTERS Encounter Location Date Diagnosis [facility] [address] [id number] [place] [phone] Jan, Anxiety F41.9 and Strain of right shoulder, subsequent encounter S46.911D [facility] [address] [id number] [place] [id number] Jan, Via [facility] [place] [address] [place] [id number] Jan, Neurogenic bladder N31.9 [place] [address] [id number] [address] [place] [id number] Dec, [place] [address] [id number] [address] [place] [id number] Dec, [place] [address] [id number] [address] [place] [id number] Dec, Anxiety F41.9 and Strain of right shoulder, subsequent encounter S46.911D [place] [address] [id number] [address] [place] [id number] 10 Dec, 2019 Other iron deficiency anemia D50.8 [place] [address] [id number] [address] [place] [id number] 04 Dec, 2019 Via [facility] [address] [place] [id number] Dec, Encounter for suprapubic catheter care Z 43.5 and Microcytic anemia D50.9 [place] [address] [id number] [address] [place] [id number] Dec, [place] [address] [id number] [address] [place] [id number] Nov, Anxiety F41.9 and Strain of right shoulder, subsequent encounter S46.911D [place] [address] [id number] [address] [place] [id number] Nov, Hypertension I10 Via [facility] [address] [place] [id number] Nov, Pneumonia of both lungs due to infectiou s organism, unspecified part of lung J18.9 and Suprapubic catheter Z93.59 [place] [address] [id number] [address] [place] [id number] Nov, Hypertension I10 and Reactiv e depression F32.9 [place] [address] [id number] [address] [place] [id number] Oct, Strain of right shoulder, scherer bsequent encounter S46.911D and Anxiety F41.9 [facility] [address] [id number] [address] [place] [id number] Oct, Via [facility] [address] [place] [id number] Oct, Suprapubic catheter Z93.59 and Candidias is, intertriginous B37.2 [facility] [address] [id number] [address] [place] [id number] Oct, Suprapubic catheter Z93.59 [facility] [address] [id number] [address] [place] [id number] Oct, Anxiety F41.9 and Strain of right shoulder, subsequent encounter S46.911D [facility] [address] [id number] [address] [place] [id number] Sep, [facility] [address] [id number] [address] [place] [id number] Sep, [facility] [address] [id number] [address] [place] [id number] Sep, Via [facility] [address] [place] [id number] Sep, Suprapubic catheter Z93.59 [facility] [address] [id number] [address] [place] [id number] Sep, Anxiety F41.9 and Strain of right shoulder, subsequent encounter S46.911D [facility] [address] [id number] [address] [place] [id number] Aug, [facility] [address] [id number] [address] [place] [phone] Aug, [facility] [address] [id number] [address] [place] [id number] Aug, Anxiety F41.9 and Strain of right shoulder, subsequent encounter S46.911D [facility] [address] [place] [id number] Aug, Suprapubic catheter Z93.59 [facility] [address] [id number] [address] [place] [id number] Jul, Strain of right shoulder, scherer bsequent encounter S46.911D and Anxiety F41.9 [facility] [address] [id number] [address] [place] [id number] Jul, Anxiety F41.9 [facility] [address] [id number] [address] [place] [id number] Jun, [facility] [address] [id number] [address] [place] [id number] Jun, [facility] [address] [id number] [address] [place] [id number] Jun, [facility] [address] [id number] [address] [place] [id number] Jun, Strain of right shoulder, scherer bsequent encounter S46.911D [facility] [address] [id number] [address] [place] [id number] Jun, Strain of right shoulder, scherer bsequent encounter S46.911D [facility] [address] [id number] [address] [place] [id number] Jun, Anxiety F41.9 Via [facility] [address] [place] [id number] Jun, Neurogenic bladder N31.9 and Anxiety F41 .9 [facility] [address] [place] [id number] May, Anxiety F41.9 [facility] [address] [id number] [address] [place] [id number] May, Dysuria R30.0 [facility] [address] [id number] [address] [place] [id number] May, Strain of right shoulder, scherer bsequent encounter S46.911D and Anxiety F41.9 [place] [address] [id number] [address] [place] [id number] 27 Apr, 2019 Via [facility] [address] [place] [id number] Apr, Strain of right shoulder, subsequent enc ounter S46.911D [place] [address] [id number] [address] [place] [id number] 14 Apr, 2019 Strain of right shoulder, scherer bsequent encounter S46.911D and Anxiety F41.9 Via [facility] [address] [place] [id number] 13 Apr, 2019 Type 2 diabetes mellitus without complic ation, without long-term current use of insulin E11.9 and Neurogenic bladder N31.9 [facility] [address] [place] [id number] 11 Apr, 2019 Strain of right shoulder, subsequent enc ounter S46.911D ; History of GI bleed Z87.19 ; Neurogenic bladder N31.9 and Reactive depression F32.9 [place] [address] [id number] [address] [place] [id number] 10 Apr, 2019 Acute pain of left shoulder M25.512 [place] [address] [id number] [address] [place] [id number] 07 Apr, 2019 [place] [address] [id number] [address] [place] [id number] Apr, Anxiety F41.9 and Other small stock 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29 [facility] [address] [id number] [address] [place] [id number] March, Anxiety F41.9 [facility] [address] [id number] [address] [place] [id number] March, [facility] [address] [id number] [address] [place] [id number] Feb, Other chronic pain G89.29 [facility] [address] [id number] [address] [place] [id number] Feb, Anxiety F41.9 [facility] [address] [id number] [address] [place] [id number] Feb, Other chronic pain G89.29 [facility] [address] [place] [id number] Feb, Neurogenic bladder N31.9 and Suprapubic catheter Z93.59 [facility] [address] [id number] [address] [place] [id number] Jan, Anxiety F41.9 [facility] [address] [id number] [address] [place] [id number] Dec, Anxiety F41.9 [facility] [address] [id number] [address] [place] [id number] Dec, Other chronic pain G89.29 an d Anxiety F41.9 [facility] [address] [id number] [address] [place] [id number] Dec, Via [facility] [address] [place] [id number] Dec, Neurogenic bladder N31.9 and Suprapubic catheter Z93.59 [facility] [address] [id number] [address] [place] [id number] Nov, Other chronic pain G89.29 an d Anxiety F41.9 [facility] [address] [id number] [address] [place] [id number] Nov, Via [facility] [address] [place] [id number] Nov, Suprapubic catheter Z93.59 [facility] [address] [id number] [address] [place] [id number] Oct, Other chronic pain G89.29 an d Anxiety F41.9 [facility] [address] [id number] [address] [place] [id number] Oct, [facility] [address] [id number] [address] [place] [id number] Oct, Suprapubic catheter Z93.59 [facility] [address] [id number] [address] [place] [id number] Oct, Via [facility] [address] [place] [id number] Oct, [facility] [address] [id number] [address] [place] [id number] Oct, Anxiety F41.9 [facility] [address] [id number] [address] [place] [id number] Oct, Anxiety F41.9 [facility] [address] [place] [id number] Oct, Other chronic pain G89.29 [facility] [address] [id number] [address] [place] [id number] Sep, Other chronic pain G89.29 [facility] [address] [place] [id number] Sep, Suprapubic catheter Z93.59 and Cervicalg ia M54.2 [facility] [address] [id number] [address] [place] [id number] Sep, [facility] [address] [id number] [address] [place] [id number] Sep, [facility] [address] [id number] [address] [place] [id number] Sep, Via [employer] [facility] [address] [place] [id number] Aug, Cystitis N30.90 [facility] [address] [id number] [address] [place] [id number] Aug, [facility] [address] [id number] [address] [place] [id number] Aug, Other chronic pain G89.29 [facility] [address] [id number] [address] [place] [id number] Aug, Via [facility] [facility] [address] [place] [id number] Aug, Encounter for suprapubic catheter care Z 43.5 [facility] [address] [id number] [address] [place] [id number] Jul, Via [facility] [facility] [address] [place] [id number] Jul, [facility] [address] [id number] [address] [place] [id number] Jul, Other chronic pain G89.29 [facility] [address] [id number] [address] [place] [id number] Jul, [facility] [address] [id number] [address] [place] [id number] Jul, Via [employer] [facility] [address] [place] [id number] Jun, 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 [facility] [address] [id number] [address] [place] [id number] Jun, Other chronic pain G89.29 [facility] [address] [id number] [address] [place] [id number] Jun, Via [facility] [address] [place] [id number] May, Anxiety F41.9 ; Type 2 diabetes mellitus without complication, without long-term current use of insulin E11.9 ; Hypertension I10 ; Low back pain M54.5 ; Paroxysmal atrial fibrillation I48.0 and 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 [facility] [address] [id number] [address] [place] [id number] May, Other chronic pain G89.29 [facility] [address] [place] [id number] May, Low back pain M54.5 [place] [address] [id number] [address] [place] [id number] May, [place] [address] [id number] [address] [place] [id number] Apr, Other chronic pain G89.29 [place] [address] [id number] [address] [place] [id number] Apr, [facility] [address] [id number] [address] [place] [id number] Apr, Via [facility] [address] [place] [id number] Apr, Closed compression fracture of L3 lumbar vertebra with routine healing, subsequent encounter S32.030D [facility] [address] [place] [id number] Apr, Low back pain M54.5 [facility] [address] [place] [id number] Apr, Coccydynia M53.3 [facility] [address] [id number] [address] [place] [id number] March, [facility] [address] [id number] [address] [place] [id number] March, Other chronic pain G89.29 [facility] [address] [id number] [address] [place] [id number] March, [facility] [address] [id number] [address] [place] [id number] March, [facility] [address] [id number] [address] [place] [id number] Feb, [facility] [address] [id number] [address] [place] [id number] Feb, Other chronic pain G89.29 Via [facility] [place] [address] [place] [id number] Feb, Other chronic pain G89.29 and Anxiety F4 1.9 [facility] [address] [id number] [address] [place] [id number] Feb, [facility] [address] [id number] [address] [place] [id number] Jan, [facility] [address] [id number] [address] [place] [phone] Jan, [facility] [address] [id number] [address] [place] [phone] Jan, [facility] [address] [id number] [address] [place] [id number] Jan, [facility] [address] [id number] [address] [place] [id number] Dec, [facility] [place] [address] [place] [id number] Dec, Peripheral vascular disease I73.9 ; 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 ; Other chronic pain G89.29 ; Anxiety F41.9 ; Reactive depression F32.9 ; Insomnia G47.00 and Type 2 diabetes mellitus without complication, without long-term current use of insulin E11.[address] [facility] [place] [address] [id number] [place] [phone] Nov, [facility] [address] [id number] [place] [id number] Nov, Anxiety F41.9 [facility] [address] [id number] [address] [place] [phone] Nov, [facility] [address] [id number] [place] [id number] Nov, Anxiety F41.9 [facility] [address] [place] [id number] Nov, Status post surgery Z98.890 ; Confused R 41.0 ; Anxiety F41.9 and Other chronic pain G89.29 [facility] [address] [id number] [place] [id number] Nov, Other chronic pain G89.29 [facility] [address] [id number] [address] [place] [id number] Oct, [facility] [address] [id number] [place] [id number] Oct, Other chronic pain G89.29 [facility] [address] [id number] [address] [place] [id number] Oct, Anxiety F41.9 [facility] [address] [id number] [place] [id number] Sep, Other chronic pain G89.29 [facility] [address] [id number] [place] [id number] Sep, [facility] [address] [place] [id number] Aug, Dysuria R30.0 and Anxiety F41.9 [facility] [address] [id number] [address] [place] [id number] Aug, [facility] [address] [id number] [place] [id number] Aug, Other chronic pain G89.29 [facility] [address] [id number] [place] [id number] Jul, Other chronic pain G89.29 [facility] [address] [id number] [place] [id number] Jun, [facility] [address] [id number] [place] [id number] Jun, Other chronic pain G89.29 [facility] [address] [id number] [address] [place] [id number] Jun, [facility] [address] [id number] [address] [place] [id number] May, Other chronic pain G89.29 [facility] [address] [id number] [address] [place] [id number] Apr, Other chronic pain G89.29 [facility] [address] [place] [id number] Apr, Reactive depression F32.9 and Pharyngeal dysphagia R13.13 [facility] [address] [id number] [address] [place] [id number] Apr, Urinary tract infection with out hematuria, site unspecified N39.0 [facility] [address] [id number] [address] [place] [id number] March, Other chronic pain G89.29 [facility] [address] [id number] [address] [place] [id number] Feb, Other chronic pain G89.29 [facility] [address] [id number] [address] [place] [id number] Feb, [facility] [address] [id number] [place] [id number] Feb, [facility] [address] [place] [id number] Feb, Dysuria R30.0 and Ventral hernia without obstruction or gangrene K43.9 [facility] [address] [id number] [address] [place] [id number] Jan, Other chronic pain G89.29 [facility] [address] [id number] [id number] Dec, Other chronic pain G89.29 [facility] [address] [id number] [address] [place] [id number] Nov, Other chronic pain G89.29 [facility] [place] [address] [place] [id number] Nov, Lymphadenitis I88.9 [facility] [address] [id number] [address] [place] [id number] Nov, Other chronic pain G89.29 [facility] [address] [id number] [address] [place] [id number] Nov, [facility] [id number] [place] [id number] Nov, Other chronic pain G89.29 [facility] [place] [address] [place] [id number] Oct, Low back pain M54.5 ; Hypertension I10 a nd Type 2 diabetes mellitus without complication, without long-term current use of insulin E11.9 [facility] [address] [id number] [address] [place] [id number] Oct, [facility] [address] [id number] [address] [place] [id number] Oct, [facility] [address] [id number] [address] [place] [id number] Oct, [facility] [address] [id number] [address] [place] [id number] Oct, [facility] [address] [id number] [address] [place] [id number] Sep, [facility] [address] [id number] [address] [place] [id number] Sep, [facility] [address] [id number] [address] [place] [id number] Aug, Other chronic pain G89.29 [facility] [address] [id number] [address] [place] [id number] Jul, [facility] [address] [id number] [address] [place] [id number] Jul, [facility] [address] [id number] [address] [place] [id number] Jul, [facility] [address] [id number] [address] [place] [phone] Jun, [facility] [address] [id number] [address] [place] [phone] Jun, Via [facility], [place] [address] [place] [id number] Jun, Low back pain M54.5 ; Other chronic pain G89.29 and Coronary artery disease I25.10 [facility] [address] [id number] [address] [place] [id number] Jun, [facility] [address] [id number] [address] [place] [id number] May, [facility] [address] [id number] [address] [place] [phone] May, [facility] [address] [id number] [address] [place] [phone] May, Other chronic pain G89.29 [facility] [address] [id number] [address] [place] [phone] May, [facility] [address] [id number] [address] [place] [phone] Apr, [facility] [address] [id number] [address] [place] [id number] Apr, Acute cystitis without hemat uria N30.00 [facility] [address] [id number] [address] [place] [phone] Apr, Acute cystitis without hemat uria N30.00 ; Coronary artery disease I25.10 ; Low back pain M54.5 and Other chronic pain G89.29 [facility] [address] [id number] [address] [place] [id number] Apr, Other chronic pain G89.29 [facility] [address] [id number] [address] [place] [id number] March, Other chronic pain G89.29 [facility] [address] [id number] [address] [place] [id number] Feb, [facility] [address] [id number] [address] [place] [id number] Feb, Arthritis M19.90 [facility] [address] [id number] [address] [place] [id number] Feb, [facility] [address] [id number] [address] [place] [id number] Jan, [facility] [address] [id number] [address] [place] [id number] Jan, [facility] [address] [id number] [address] [place] [id number] Jan, Other chronic pain G89.29 [facility] [address] [id number] [address] [place] [address] Jan, Hypertension I10 ; Coronary artery disease I25.10 and Insomnia G47.00 [facility] [address] [id number] [address] [place] [id number] Jan, [facility] [address] [id number] [address] [place] [id number] Dec, Right hip pain M25.551 [facility] [address] [id number] [address] [place] [id number] Dec, [facility] [address] [id number] [address] [place] [phone] Dec, [facility] [address] [id number] [address] [place] [id number] Dec, [facility] [address] [id number] [address] [place] [id number] Dec, Other chronic pain G89.29 [facility] [address] [id number] [address] [place] [id number] Dec, [facility] [address] [id number] [address] [place] [id number] Nov, [facility] [address] [id number] [address] [place] [id number] Nov, Other chronic pain G89.29 [facility] [address] [id number] [address] [place] [id number] Nov, Right hip pain M25.551 and C oronary artery disease I25.10 [facility] [address] [id number] [address] [place] [id number] Nov, Other chronic pain G89.29 [facility] [address] [id number] [address] [place] [id number] Oct, [facility] [address] [facility] [id number] [place] [id number] Oct, [facility] [address] [facility] [id number] [place] [id number] Sep, [facility] [address] [id number] [address] [place] [id number] Sep, [facility] [address] [facility] [id number] [place] [id number] Aug, [facility] [address] [facility] [id number] [place] [id number] Aug, Hypertension I10 ; Coronary artery disease I25.10 and Arthritis M19.90 [facility] [address] [id number] [address] [place] [id number] Jun, [facility] [address] [id number] [address] [place] [address], [place] [address] Jun, Essential hypertension, jayson gn 401.1 ; Other chronic pain 338.29 and Chronic airway obstruction, not elsewhere classified 496 [facility] [address] [id number] [address] [place] [address], [place] [address] Jun, [facility] [address] [id number] [address] [place] [address], [place] [address] Jun, [facility] [address] [id number] [address] [place] [address], [place] [address] Jun, [facility] [address] [id number] [address] [place] [address], [place] [address] May, [facility] [address] [id number] [address] [place] [address], [place] [address] May, [facility] [address] [id number] [address] [place] [address], [place] [address] Apr, [facility] [address] [id number] [address] [place] [phone] Apr, [facility] [address] [id number] [address] [place] [address], [place] [address] Apr, [facility] [address] [id number] [address] [place] [id number] March, [facility] [address] [id number] [address] [place] [phone] March, [facility] [address] [id number] [address] [place] [id number] March, [facility] [address] [id number] [address] [place] [id number] March, [facility] [address] [id number] [address] [place] [id number] March, Sialadenitis 527.2 [facility] [address] [id number] [address] [place] [id number] Feb, [facility] [address] [id number] [address] [place] [address], [place] [address] Feb, [facility] [address] [id number] [address] [place] [address], [place] [address] Feb, [facility] [address] [id number] [address] [place] [address], [place] [address] Feb, [facility] [address] [id number] [address] [place] [address], [place] [address] Feb, [facility] [address] [id number] [address] [place] [address], [place] [address] Jan, [facility] [address] [id number] [address] [place] [address], [place] [address] Jan, [facility] [address] [id number] [address] [place] [address], [place] [address] Jan, [facility] [address] [id number] [address] [place] [address], [place] [address] Jan, [facility] [address] [id number] [address] [place] [address], [place] [address] Jan, [facility] [address] [id number] [address] [place] [address], [place] [address] Jan, [facility] [address] [id number] [address] [place] [address], [place] [address] Dec, 2014 [facility] [address] [id number] [address] [place] [address], [place] [address] Dec, 2014 [facility] [address] [id number] [address] [place] [address], [place] [address] Dec, 2014 [facility] [address] [id number] [address] [place] [address], [place] [address] Dec, 2014 [facility] [address] [id number] [address] [place] [address], [place] [address] Dec, 2014 [facility] [address] [id number] [address] [place] [address], [place] [address] Dec, [facility] [address] [id number] [address] [place] [address], [place] [address] Nov, [facility] [address] [id number] [address] [place] [address], [place] [address] Nov, [facility] [address] [id number] [address] [place] [address], [place] [address] Nov, [facility] [address] [id number] [address] [place] [address], [place] [address] Nov, [facility] [address] [id number] [address] [place] [address], [place] [address] Nov, [facility] [address] [id number] [address] [place] [address], [place] [address] Nov, [facility] [address] [id number] [address] [place] [address], [place] [address] Nov, [facility] [address] [id number] [address] [place] [address], [place] [address] Nov, [facility] [address] [id number] [address] [place] [address], [place] [address] Nov, [facility] [address] [id number] [address] [place] [address], [place] [address] Nov, [facility] [address] [id number] [address] [place] [address], [place] [address] Nov, [facility] [address] [id number] [address] [place] [address], [place] [address] Nov, [facility] [address] [id number] [address] [place] [address], [place] [address] Nov, [facility] [address] [id number] [address] [place] [address], [place] [address] Nov, [facility] [address] [id number] [address] [place] [address], [place] [address] Oct, [facility] [address] [id number] [address] [place] [address], [place] [address] Oct, [facility] [address] [id number] [address] [place] [address], [place] [address] Oct, [facility] [address] [id number] [address] [place] [address], [place] [address] 18 Oct, 2014 [facility] [address] [id number] [address] [place] [address], [place] [address] Oct, [facility] [address] [id number] [address] [place] [address], [place] [address] Oct, [facility] [address] [id number] [address] [place] [address], [place] [address] Oct, [facility] [address] [id number] [address] [place] [address], [place] [address] Oct, [facility] [address] [id number] [address] [place] [address], [place] [address] Oct, [facility] [address] [id number] [address] [place] [address], [place] [address] Sep, [facility] [address] [id number] [address] [place] [address], [place] [address] Sep, [facility] [address] [id number] [address] [place] [address], [place] [address] Sep, [facility] [address] [id number] [address] [place] [address], [place] [address] Sep, [facility] [address] [id number] [address] [place] [address], [place] [address] Sep, [facility] [address] [id number] [address] [place] [address], [place] [address] Sep, [facility] [address] [id number] [address] [place] [address], [place] [address] Sep, [facility] [address] [id number] [address] [place] [address], [place] [address] Sep, [facility] [address] [id number] [address] [place] [address], [place] [address] Sep, [facility] [address] [id number] [address] [place] [address], [place] [address] Sep, [facility] [address] [id number] [address] [place] [address], [place] [address] Sep, [facility] [address] [id number] [address] [place] [address], [place] [address] Sep, [facility] [address] [id number] [address] [place] [address], [place] [address] Aug, [facility] [address] [id number] [address] [place] [address], [place] [address] Aug, [facility] [address] [id number] [address] [place] [address], [place] [address] Aug, [facility] [address] [id number] [address] [place] [address], [place] [address] Aug, [facility] [address] [id number] [address] [place] [address], [place] [address] Aug, [facility] [address] [id number] [address] [place] [address], [place] [address] Aug, [facility] [address] [id number] [address] [place] [address], [place] [address] Aug, [facility] [address] [id number] [address] [place] [address], [place] [address] Aug, [facility] [address] [id number] [address] [place] [address], [place] [address] 30 Jul, 2014 [facility] [address] [id number] [address] [place] [address], [place] [address] 30 Jul, 2014 [facility] [address] [id number] [address] [place] [address], [place] [address] 30 Jul, 2014 [facility] [address] [id number] [facility] [place] [address] 30 Jul, 2013 [facility] [address] [id number] [facility] [place] [address] 25 Jul, 2013 [facility] [address] [id number] [facility] [place] [address] 25 Jul, 2013 [facility] [address] [id number] [facility] [place] [address] 15 Jul, 2014 [facility] [address] [id number] [address] [place] [address], [place] [address] 15 Jul, 2014 [facility] [address] [id number] [address] [place] [address], [place] [address] Jul, [facility] [address] [id number] [address] [place] [address], [place] [address] Jul, [facility] [address] [id number] [address] [place] [address], [place] [address] Jun, [facility] [address] [id number] [address] [place] [address], [place] [address] Jun, [facility] [address] [id number] [address] [place] [address], [place] [address] Jun, [facility] [address] [id number] [address] [place] [address], [place] [address] Jun, [facility] [address] [id number] [address] [place] [address], [place] [address] Jun, [facility] [address] [id number] [address] [place] [address], [place] [address] Jun, [facility] [address] [id number] [address] [place] [address], [place] [address] Jun, [facility] [address] [id number] [address] [place] [address], [place] [address] Jun, [facility] [address] [id number] [address] [place] [address], [place] [address] Jun, [facility] [address] [id number] [facility] [place] [address] Jun, [facility] [address] [id number] [address] [place] [address], [place] [address] Jun, [facility] [address] [id number] [address] [place] [address], [place] [address] Jun, [facility] [address] [id number] [address] [place] [address], [place] [address] Jun, [facility] [address] [id number] [address] [place] [address], [place] [address] Jun, [facility] [address] [id number] [address] [place] [address], [place] [address] Jun, [facility] [address] [id number] [address] [place] [address], [place] [address] Jun, [facility] [address] [id number] [address] [place] [address], [place] [address] Jun, [facility] [address] [id number] [address] [place] [address], [place] [address] Jun, [facility] [address] [id number] [address] [place] [address], [place] [address] Jun, [facility] [address] [id number] [address] [place] [address], [place] [address] Jun, [facility] [address] [id number] [address] [place] [address], [place] [address] Jun, [facility] [address] [id number] [address] [place] [address], [place] [address] Jun, [facility] [address] [id number] [address] [place] [address], [place] [address] May, [facility] [address] [id number] [address] [place] [address], [place] [address] May, [facility] [address] [id number] [facility] [place] [address] May, [facility] [address] [id number] [facility] [place] [address] May, [facility] [address] [id number] [facility] [place] [address] May, [facility] [address] [id number] [address] [place] [address], [place] [address] May, 2013 [facility] [address] [id number] [address] [place] [address], [place] [address] May, 2013 [facility] [address] [id number] [address] [place] [address], [place] [address] May, [facility] [address] [id number] [address] [place] [address], [place] [address] May, [facility] [address] [id number] [address] [place] [address], [place] [address] May, [facility] [address] [id number] [address] [place] [address], [place] [address] May, [facility] [address] [id number] [address] [place] [address], [place] [address] May, [facility] [address] [id number] [address] [place] [address], [place] [address] May, [facility] [address] [id number] [address] [place] [address], [place] [address] Apr, [facility] [address] [id number] [address] [place] [address], [place] [address] Apr, [facility] [address] [id number] [address] [place] [address], [place] [address] Apr, [facility] [address] [id number] [address] [place] [address], [place] [address] Apr, [facility] [address] [id number] [address] [place] [address], [place] [address] Apr, [facility] [address] [id number] [address] [place] [address], [place] [address] Apr, [facility] [address] [id number] [address] [place] [address], [place] [address] Apr, [facility] [address] [id number] [address] [place] [address], [place] [address] Apr, [facility] [address] [id number] [address] [place] [address], [place] [address] Apr, [facility] [address] [id number] [address] [place] [address], [place] [address] March, [facility] [address] [id number] [address] [place] [address], [place] [address] March, [facility] [address] [id number] [address] [place] [address], [place] [address] March, [facility] [address] [id number] [address] [place] [address], [place] [address] March, [facility] [address] [id number] [address] [place] [address], [place] [address] March, [facility] [address] [id number] [address] [place] [address], [place] [address] March, [facility] [address] [id number] [address] [place] [address], [place] [address] March, [facility] [address] [id number] [address] [place] [address], [place] [address] March, [facility] [address] [id number] [address] [place] [address], [place] [address] March, [facility] [address] [id number] [address] [place] [address], [place] [address] March, [facility] [address] [id number] [address] [place] [address], [place] [address] March, [facility] [address] [id number] [address] [place] [address], [place] [address] March, [facility] [address] [id number] [address] [place] [address], [place] [address] March, [facility] [address] [id number] [address] [place] [address], [place] [address] March, [facility] [address] [id number] [address] [place] [address], [place] [address] March, [facility] [address] [id number] [address] [place] [address], [place] [address] March, [facility] [address] [id number] [address] [place] [address], [place] [address] March, [facility] [address] [id number] [address] [place] [address], [place] [address] March, [facility] [address] [id number] [address] [place] [address], [place] [address] March, [facility] [address] [id number] [address] [place] [address], [place] [address] March, [facility] [address] [id number] [address] [place] [address], [place] [address] Feb, [facility] [address] [id number] [address] [place] [address], [place] [address] Feb, [facility] [address] [id number] [address] [place] [address], [place] [address] Feb, [facility] [address] [id number] [address] [place] [address], [place] [address] Feb, [facility] [address] [id number] [address] [place] [address], [place] [address] Feb, [facility] [address] [id number] [address] [place] [address], [place] [address] Feb, [facility] [address] [id number] [address] [place] [address], [place] [address] Feb, [facility] [address] [id number] [facility] [place] [address] 11 Feb, 2014 [facility] [address] [id number] [facility] [place] [address] Jan, [facility] [address] [id number] [facility] [place] [address] Jan, [facility] [address] [id number] [address] [place] [address], [place] [address] Jan, [facility] [address] [id number] [address] [place] [address], [place] [address] Jan, [facility] [address] [id number] [address] [place] [address], [place] [address] Jan, [facility] [address] [id number] [address] [place] [address], [place] [address] Jan, [facility] [address] [id number] [address] [place] [address], [place] [address] Jan, [facility] [address] [id number] [address] [place] [address], [place] [address] Jan, [facility] [address] [id number] [address] [place] [address], [place] [address] Jan, [facility] [address] [id number] [address] [place] [address], [place] [address] Jan, [facility] [address] [id number] [address] [place] [address], [place] [address] Dec, [facility] [address] [id number] [address] [place] [address], [place] [address] Dec, [facility] [address] [id number] [address] [place] [address], [place] [address] Dec, [facility] [address] [id number] [address] [place] [address], [place] [address] 2013 [facility] [address] [id number] [address] [place] [address], [place] [address] 2013 [facility] [address] [id number] [address] [place] [address], [place] [address] Dec, [facility] [address] [id number] [address] [place] [address], [place] [address] Dec, [facility] [address] [id number] [address] [place] [address], [place] [address] Dec, [facility] [address] [id number] [address] [place] [address], [place] [address] Nov, [facility] [address] [id number] [address] [place] [address], [place] [address] Nov, [facility] [address] [id number] [address] [place] [address], [place] [address] Nov, [facility] [address] [id number] [address] [place] [address], [place] [address] Nov, [facility] [address] [id number] [address] [place] [address], [place] [address] Nov, [facility] [address] [id number] [address] [place] [address], [place] [address] Nov, [facility] [address] [id number] [address] [place] [address], [place] [address] Nov, [facility] [address] [id number] [address] [place] [address], [place] [address] Nov, [facility] [address] [id number] [address] [place] [address], [place] [address] Nov, [facility] [address] [id number] [address] [place] [address], [place] [address] Nov, [facility] [address] [id number] [address] [place] [address], [place] [address] Nov, [facility] [address] [id number] [address] [place] [address], [place] [address] Nov, [facility] [address] [id number] [address] [place] [address], [place] [address] 15 Nov, 2013 [facility] [address] [id number] [address] [place] [address], [place] [address] 30 Oct, 2013 [facility] [address] [id number] [address] [place] [address], [place] [address] Oct, [facility] [address] [id number] [address] [place] [address], [place] [address] Oct, [facility] [address] [id number] [address] [place] [address], [place] [address] Oct, [facility] [address] [id number] [address] [place] [address], [place] [address] Oct, [facility] [address] [id number] [address] [place] [address], [place] [address] Oct, [facility] [address] [id number] [address] [place] [address], [place] [address] Oct, [facility] [address] [id number] [address] [place] [address], [place] [address] 18 Oct, 2013 [facility] [address] [id number] [address] [place] [address], [place] [address] Oct, [facility] [address] [id number] [address] [place] [address], [place] [address] 17 Oct, 2013 [facility] [address] [id number] [address] [place] [address], [place] [address] Oct, [facility] [address] [id number] [address] [place] [address], [place] [address] Oct, [facility] [address] [id number] [address] [place] [address], [place] [address] Oct, [facility] [address] [id number] [address] [place] [address], [place] [address] Oct, [facility] [address] [id number] [address] [place] [address], [place] [address] Sep, [facility] [address] [id number] [address] [place] [address], [place] [address] 14 Sep, 2013 [facility] [address] [id number] [address] [place] [address], [place] [address] Sep, [facility] [address] [id number] [address] [place] [address], [place] [address] Sep, [facility] [address] [id number] [address] [place] [address], [place] [address] Sep, [facility] [address] [id number] [address] [place] [address], [place] [address] Sep, [facility] [address] [id number] [address] [place] [address], [place] [address] Sep, [facility] [address] [id number] [address] [place] [address], [place] [address] Sep, [facility] [address] [id number] [address] [place] [address] Sep, [facility] [address] [id number] [address] [place] [address], [place] [address] Sep, [facility] [address] [id number] [address] [place] [address] Aug, [facility] [address] [id number] [address] [place] [address] Aug, [facility] [address] [id number] [address] [place] [address] Aug, [facility] [address] [id number] [address] [place] [address] Aug, [facility] [address] [id number] [address] [place] [address] Aug, [facility] [address] [id number] [address] [place] [address] Aug, [facility] [address] [id number] [address] [place] [address], [place] [address] 23 Aug, 2012 [facility] [address] [id number] [address] [place] [address], [place] [address] 23 Aug, 2012 [facility] [address] [id number] [address] [place] [address], [place] [address] 22 Aug, 2012 [facility] [address] [id number] [address] [place] [address], [place] [address] 22 Aug, 2012 [facility] [address] [id number] [address] [place] [address], [place] [address] 18 Aug, 2012 [facility] [address] [id number] [address] [place] [address], [place] [address] 18 Aug, 2012 [facility] [address] [id number] [address] [place] [address], [place] [address] 18 Aug, 2012 [facility] [address] [id number] [address] [place] [address], [place] [address] 18 Aug, 2012 [facility] [address] [id number] [address] [place] [address], [place] [address] 17 Aug, 2012 [facility] [address] [id number] [address] [place] [address], [place] [address] 14 Aug, 2013 [facility] [address] [id number] [address] [place] [address], [place] [address] 14 Aug, 2013 [facility] [address] [id number] [address] [place] [address], [place] [address] 01 Aug, 2013 [facility] [address] [id number] [address] [place] [address], [place] [address] 20 Jul, 2012 [facility] [address] [id number] [address] [place] [address], [place] [address] 19 Sep, 2012 [facility] [address] [id number] [address] [place] [address], [place] [address] 18 Jul, 2012 [facility] [address] [id number] [address] [place] [address] [address] 11 Jul2012 [facility] [address] [id number] [facility] [place] [address] Jul, [facility] [address] [id number] [address] [place] [address], [place] [address] Jun, [facility] [address] [id number] [address] [place] [address], [place] [address] Jun, [facility] [address] [id number] [address] [place] [address], [place] [address] Jun, [facility] [address] [id number] [address] [place] [address], [place] [address] Jun, [facility] [address] [id number] [address] [place] [address], [place] [address] Jun, [facility] [address] [id number] [address] [place] [address], [place] [address] Jun, [facility] [address] [id number] [address] [place] [address], [place] [address] Jun, [facility] [address] [id number] [address] [place] [address], [place] [address] Jun, [facility] [address] [id number] [address] [place] [address], [place] [address] Jun, [facility] [address] [id number] [address] [place] [address], [place] [address] Jun, [facility] [address] [id number] [address] [place] [address], [place] [address] May, [facility] [address] [id number] [address] [place] [address], [place] [address] May, [facility] [address] [id number] [address] [place] [address], [place] [address] May, [facility] [address] [id number] [address] [place] [address], [place] [address] May, [facility] [address] [id number] [address] [place] [address], [place] [address] May, [facility] [address] [id number] [address] [place] [address], [place] [address] 16 May, 2013 [facility] [address] [id number] [address] [place] [address], [place] [address] May, [facility] [address] [id number] [address] [place] [address], [place] [address] May, [facility] [address] [id number] [address] [place] [address], [place] [address] May, [facility] [address] [id number] [address] [place] [address], [place] [address] Apr, [facility] [address] [id number] [address] [place] [address], [place] [address] Apr, [facility] [address] [id number] [address] [place] [address], [place] [address] Apr, [facility] [address] [id number] [address] [place] [address], [place] [address] Apr, [facility] [address] [id number] [address] [place] [address], [place] [address] Apr, [facility] [address] [id number] [address] [place] [address], [place] [address] Apr, [facility] [address] [id number] [address] [place] [address], [place] [address] Apr, [facility] [address] [id number] [address] [place] [address], [place] [address] March, [facility] [address] [id number] [address] [place] [address], [place] [address] Feb, [facility] [address] [id number] [address] [place] [address], [place] [address] Feb, [facility] [address] [id number] [address] [place] [address], [place] [address] Feb, [facility] [address] [id number] [address] [place] [address], [place] [address] 28 Jan, 2013 [facility] [address] [id number] [address] [place] [address], [place] [address] 21 Jan, 2013 [facility] [address] [id number] [address] [place] [address], [place] [address] 19 Jan, 2013 [facility] [address] [id number] [address] [place] [address], [place] [address] 14 Jan, 2013 [facility] [address] [id number] [address] [place] [address], [place] [address] 12 Jan, 2013 [facility] [address] [id number] [address] [place] [address], [place] [address] 08 Jan, 2013 [facility] [address] [id number] [address] [place] [address], [place] [address] 07 Jan, 2013 [facility] [address] [id number] [address] [place] [address], [place] [address] 04 Jan, 2013 [facility] [address] [id number] [address] [place] [address], [place] [address] 28 Dec, 2012 [facility] [address] [id number] [address] [place] [address], [place] [address] 25 Dec, 2012 [facility] [address] [id number] [address] [place] [address], [place] [address] 13 Dec, 2012 [facility] [address] [id number] [address] [place] [address], [place] [address] 11 Dec, 2012 [facility] [address] [id number] [address] [place] [address], [place] [address] 07 Dec, 2012 [facility] [address] [id number] [address] [place] [address], [place] [address] 06 Dec, 2012 [facility] [address] [id number] [address] [place] [address], [place] [address] 05 Dec, 2012 [facility] [address] [id number] [address] [place] [address], [place] [address] 31 Nov, 2012 [facility] [address] [id number] [address] [place] [address], [place] [address] 24 Nov, 2012 [facility] [address] [id number] [address] [place] [address], [place] [address] 18 Nov, 2012 [facility] [address] [id number] [address] [place] [address], [place] [address] 15 Nov, 2012 [facility] [address] [id number] [address] [place] [address], [place] [address] Nov, [facility] [address] [id number] [address] [place] [address], [place] [address] Nov, [facility] [address] [id number] [address] [place] [address], [place] [address] Nov, [facility] [address] [id number] [address] [place] [address], [place] [address] Oct, [facility] [address] [id number] [address] [place] [address], [place] [address] 31 Oct, 2012 [facility] [address] [id number] [address] [place] [address], [place] [address] Oct, [facility] [address] [id number] [address] [place] [address], [place] [address] Oct, [facility] [address] [id number] [address] [place] [address], [place] [address] 17 Oct, 2012 [facility] [address] [id number] [address] [place] [address], [place] [address] 17 Oct, 2012 [facility] [address] [id number] [address] [place] [address], [place] [address] 07 Oct, 2012 [facility] [address] [id number] [address] [place] [address], [place] [address] 07 Oct, 2012 [facility] [address] [id number] [address] [place] [address], [place] [address] 05 Oct, 2012 [facility] [address] [id number] [address] [place] [address], [place] [address] Oct, [facility] [address] [id number] [address] [place] [address], [place] [address] Oct, [facility] [address] [id number] [address] [place] [address], [place] [address] Oct, [facility] [address] [id number] [address] [place] [address], [place] [address] Sep, [facility] [address] [id number] [address] [place] [address], [place] [address] Sep, [facility] [address] [id number] [address] [place] [address], [place] [address] Sep, [facility] [address] [id number] [address] [place] [address], [place] [address] Sep, [facility] [address] [id number] [address] [place] [address], [place] [address] Sep, [facility] [address] [id number] [address] [place] [address], [place] [address] Sep, [facility] [address] [id number] [address] [place] [address], [place] [address] Sep, [facility] [address] [id number] [address] [place] [address], [place] [address] Sep, [facility] [address] [id number] [address] [place] [address], [place] [address] Sep, [facility] [address] [id number] [address] [place] [address], [place] [address] Sep, [facility] [address] [id number] [address] [place] [address], [place] [address] Sep, [facility] [address] [id number] [address] [place] [address], [place] [address] Aug, [facility] [address] [id number] [address] [place] [address], [place] [address] Aug, [facility] [address] [id number] [address] [place] [address], [place] [address] Aug, [facility] [address] [id number] [address] [place] [address], [place] [address] Aug, [facility] [address] [id number] [address] [place] [address], [place] [address] Aug, [facility] [address] [id number] [address] [place] [address], [place] [address] Aug, [facility] [address] [id number] [address] [place] [address], [place] [address] Aug, [facility] [address] [id number] [address] [place] [address], [place] [address] Aug, [facility] [address] [id number] [address] [place] [address], [place] [address] Aug, [facility] [address] [id number] [address] [place] [address], [place] [address] Aug, [facility] [address] [id number] [address] [place] [address], [place] [address] Jul, [facility] [address] [id number] [address] [place] [address], [place] [address] 20 Jul, 2012 [facility] [address] [id number] [address] [place] [address], [place] [address] 10 Jul, 2012 [facility] [address] [id number] [address] [place] [address], [place] [address] 06 Jul, 2012 [facility] [address] [id number] [address] [place] [address], [place] [address] 30 Jun, 2012 [facility] [address] [id number] [address] [place] [address], [place] [address] Jun, [facility] [address] [id number] [address] [place] [address], [place] [address] 16 Jun, 2012 [facility] [address] [id number] [address] [place] [address], [place] [address] Jun, [facility] [address] [id number] [address] [place] [address], [place] [address] Jun, [facility] [address] [id number] [address] [place] [address], [place] [address] Jun, [facility] [address] [id number] [address] [place] [address], [place] [address] Jun, [facility] [address] [id number] [address] [place] [address], [place] [address] May, [facility] [address] [id number] [address] [place] [address], [place] [address] May, [facility] [address] [id number] [address] [place] [address], [place] [address] May, [facility] [address] [id number] [address] [place] [address], [place] [address] May, [facility] [address] [id number] [address] [place] [address], [place] [address] May, [facility] [address] [id number] [address] [place] [address], [place] [address] Apr, [facility] [address] [id number] [address] [place] [address], [place] [address] Apr, [facility] [address] [id number] [address] [place] [address], [place] [address] Apr, [facility] [address] [id number] [address] [place] [address], [place] [address] Apr, [facility] [address] [id number] [address] [place] [address], [place] [address] Apr, [facility] [address] [id number] [address] [place] [address], [place] [address] March, [facility] [address] [id number] [address] [place] [address], [place] [address] March, [facility] [address] [id number] [address] [place] [address], [place] [address] March, [facility] [address] [id number] [address] [place] [address], [place] [address] March, [facility] [address] [id number] [address] [place] [address], [place] [address] March, [facility] [address] [id number] [address] [place] [address], [place] [address] March, [facility] [address] [id number] [address] [place] [address], [place] [address] March, [facility] [address] [id number] [address] [place] [address], [place] [address] March, [facility] [address] [id number] [address] [place] [address], [place] [address] March, [facility] [address] [id number] [address] [place] [address], [place] [address] March, [facility] [address] [id number] [address] [place] [address], [place] [address] 30 Feb, 2012 [facility] [address] [id number] [address] [place] [address], [place] [address] Feb, [facility] [address] [id number] [address] [place] [address], [place] [address] Feb, [facility] [address] [id number] [address] [place] [address], [place] [address] Feb, [facility] [address] [id number] [address] [place] [address], [place] [address] Feb, [facility] [address] [id number] [address] [place] [address], [place] [address] Feb, [facility] [address] [id number] [address] [place] [address], [place] [address] Feb, [facility] [address] [id number] [address] [place] [address], [place] [address] Feb, [facility] [address] [id number] [address] [place] [address], [place] [address] Feb, [facility] [address] [id number] [address] [place] [address], [place] [address] 08 Jan, 2012 [facility] [address] [id number] [address] [place] [address], [place] [address] Jan, [facility] [address] [id number] [address] [place] [address], [place] [address] Jan, [facility] [address] [id number] [address] [place] [address], [place] [address] Jan, [facility] [address] [id number] [address] [place] [address], [place] [address] Dec, [facility] [address] [id number] [address] [place] [address], [place] [address] Dec, [facility] [address] [id number] [address] [place] [address], [place] [address] Nov, [facility] [address] [id number] [address] [place] [address], [place] [address] Nov, [facility] [address] [id number] [address] [place] [address], [place] [address] Nov, [facility] [address] [id number] [address] [place] [address], [place] [address] Nov, [facility] [address] [id number] [address] [place] [address], [place] [address] Nov, [facility] [address] [id number] [address] [place] [address], [place] [address] Oct, [facility] [address] [id number] [address] [place] [address], [place] [address] Oct, [facility] [address] [id number] [address] [place] [address], [place] [address] Oct, [facility] [address] [id number] [address] [place] [phone] Oct, [facility] [address] [facility] [id number] [place] [address] Oct, [facility] [address] [facility] [id number] [place] [address] Oct, [facility] [address] [facility] [id number] [place] [address] Oct, [facility] [address] [facility] [id number] [place] [address] Oct, [facility] [address] [facility] [id number] [place] [id number] Sep, IMMUNIZATIONS No Known Immunizations SOCIAL HISTORY [...] fever, discharged 11/27/2017 11/26/2017 Hospitalization History ED [place]- Went Unrepsonsive, Hit head 2017 Hospitalization History ED [place]- Back Pain 8
--- OUTSIDE RECORDS SUMMARY | 2020-06-18 14:42 | XMS REPORT ---
Author Author Sanjuanita VEGA Organization [facility] Address [address] [place] [address] Care Team Providers Care Sourcing Analyst Name Role Phone SHANIQUE VEGA Unavailable PROBLEMS Type Condition ICD9-CM Code BAL04-YJ Code Onset Dates Condition S tatus SNOMED Code Problem Hypertension I10 Active 5846272 3 Problem Hyperlipidemia E78.5 Active 00610 004 Problem Coronary artery disease I25.10 Active 88651451 Problem Low back pain M54.5 Active 428023 009 Problem Other chronic pain G89.29 Active 8 2295386 Problem Ventral hernia without obstruction or gangrene K43 .9 Active 382474267 Problem Type 2 diabetes mellitus wit hout complication, without long-term current use of insulin E11.9 Active 668430547 Problem Anxiety F41.9 Active 09045599 Problem Peripheral vascular disease I73.9 Ac tive 254145353 Problem Insomnia G47.00 Active 552777096 Problem Microcytic anemia D50.9 Active 23 0836039 Problem Pharyngeal dysphagia R13.13 Active 00303711566164 Problem Other iron deficiency anemia D50.8 A ctive 36201810 Problem Reactive depression F32.9 Active 93553214 Problem Paroxysmal atrial fibrillation I48.0 Active 143752047 Problem 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 Active 10786657 Problem Encounter for suprapubic catheter care Z43.5 Active 630461187 Problem Neurogenic bladder N31.9 Active 3 34033613 ALLERGIES No Information ENCOUNTERS Encounter Location Date Diagnosis [facility] [address] [facility] [id number] [address] [place] [id number] Jan, Anxiety F41.9 and Strain of right shoulder, subsequent encounter S46.911D [facility] [address] [facility] [id number] [address] [place] [address] Jan, Via [facility] [address] [place] [id number] Jan, Neurogenic bladder N31.9 [place] [address] [id number] [address] [place] [phone] Dec, [place] [address] [id number] [address] [place] [address] Dec, [place] [address] [id number] [address] [place] [address] Dec, Anxiety F41.9 and Strain of right shoulder, subsequent encounter S46.911D [place] [address] [id number] [address] [place] [id number] 10 Dec, 2019 Other iron deficiency anemia D50.8 [place] [address] [id number] [address] [place] [id number] 04 Dec, 2019 Via [facility] [address] [place] [id number] Dec, Encounter for suprapubic catheter care Z 43.5 and Microcytic anemia D50.9 [place] [address] [id number] [address] [place] [address] Dec, [place] [address] [id number] [address] [place] [id number] Nov, Anxiety F41.9 and Strain of right shoulder, subsequent encounter S46.911D [place] [address] [id number] [address] [place] [address] Nov, Hypertension I10 [facility] [address] [place] [id number] Nov, Pneumonia of both lungs due to infectiou s organism, unspecified part of lung J18.9 and Suprapubic catheter Z93.59 [place] [address] [id number] [address] [place] [address] Nov, Hypertension I10 and Reactiv e depression F32.9 [place] [address] [id number] [address] [place] [address] Oct, Strain of right shoulder, scherer bsequent encounter S46.911D and Anxiety F41.9 [facility] [address] [id number] [address] [place] [address] Oct, Via [facility] [address] [place] [id number] Oct, Suprapubic catheter Z93.59 and Candidias is, intertriginous B37.2 [facility] [address] [id number] [address] [place] [address] Oct, Suprapubic catheter Z93.59 [facility] [address] [id number] [address] [place] [address] Oct, Anxiety F41.9 and Strain of right shoulder, subsequent encounter S46.911D [facility] [address] [id number] [address] [place] [id number] Sep, [facility] [address] [id number] [address] [place] [phone] Sep, [facility] [address] [id number] [address] [place] [address] Sep, Via [facility] [address] [place] [id number] Sep, Suprapubic catheter Z93.59 [facility] [address] [id number] [address] [place] [address] Sep, Anxiety F41.9 and Strain of right shoulder, subsequent encounter S46.911D [facility] [address] [id number] [address] [place] [address] Aug, [facility] [address] [id number] [address] [place] [id number] Aug, [facility] [address] [id number] [address] [place] [address] Aug, Anxiety F41.9 and Strain of right shoulder, subsequent encounter S46.911D [facility] [address] [place] [id number] Aug, Suprapubic catheter Z93.59 [facility] [address] [id number] [address] [place] [address] Jul, Strain of right shoulder, scherer bsequent encounter S46.911D and Anxiety F41.9 [facility] [address] [id number] [address] [place] [address] Jul, Anxiety F41.9 [facility] [address] [id number] [address] [place] [address] Jun, [facility] [address] [id number] [address] [place] [address] Jun, [facility] [address] [id number] [address] [place] [address] Jun, [facility] [address] [id number] [address] [place] [address] Jun, Strain of right shoulder, scherer bsequent encounter S46.911D [facility] [address] [id number] [address] [place] [address] Jun, Strain of right shoulder, scherer bsequent encounter S46.911D [facility] [address] [id number] [address] [place] [address] Jun, Anxiety F41.9 Via [facility] [address] [place] [id number] Jun, Neurogenic bladder N31.9 and Anxiety F41 .9 [facility] [address] [place] [id number] May, Anxiety F41.9 [facility] [address] [id number] [address] [place] [address] May, Dysuria R30.0 [facility] [address] [id number] [address] [place] [address] May, Strain of right shoulder, scherer bsequent encounter S46.911D and Anxiety F41.9 [place] [address] [id number] [address] [place] [phone] 27 Apr, 2019 Via [facility] [employer] [address] [place] [id number] Apr, Strain of right shoulder, subsequent enc ounter S46.911D [place] [address] [id number] [address] [place] [id number] 14 Apr, 2019 Strain of right shoulder, scherer bsequent encounter S46.911D and Anxiety F41.9 Via [facility] [employer] [address] [place] [id number] 13 Apr, 2019 Type 2 diabetes mellitus without complic ation, without long-term current use of insulin E11.9 and Neurogenic bladder N31.9 Via [facility] [employer] [address] [place] [id number] 11 Apr, 2019 Strain of right shoulder, subsequent enc ounter S46.911D ; History of GI bleed Z87.19 ; Neurogenic bladder N31.9 and Reactive depression F32.9 [place] [address] [id number] [address] [place] [id number] 10 Apr, 2019 Acute pain of left shoulder M25.512 [place] [address] [id number] [address] [place] [phone] 07 Apr, 2019 [place] [address] [id number] [address] [place] [address] Apr, Anxiety F41.9 and Other tube coater 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 [facility] [address] [place] [id number] March, Gastrointestinal hemorrhage associated w ith acute gastritis K29.01 [place] [address] [id number] [address] [place] [address] March, Via [facility] [employer] [address] [place] [id number] March, Bronchitis J40 [place] [address] [id number] [address] [place] [address] March, Cough R05 [facility] [address] [id number] [address] [place] [address] March, Other chronic pain G89.29 [facility] [address] [id number] [address] [place] [phone] March, Anxiety F41.9 [facility] [address] [id number] [address] [place] [address] March, [facility] [address] [id number] [address] [place] [address] Feb, Other chronic pain G89.29 [facility] [address] [id number] [address] [place] [address] Feb, Anxiety F41.9 [facility] [address] [id number] [address] [place] [address] Feb, Other chronic pain G89.29 [facility] [address] [place] [id number] Feb, Neurogenic bladder N31.9 and Suprapubic catheter Z93.59 [facility] [address] [id number] [address] [place] [address] Jan, Anxiety F41.9 [facility] [address] [id number] [address] [place] [address] Dec, Anxiety F41.9 [facility] [address] [id number] [address] [place] [address] Dec, Other chronic pain G89.29 an d Anxiety F41.9 [facility] [address] [id number] [address] [place] [address] Dec, Via [facility] [address] [place] [id number] Dec, Neurogenic bladder N31.9 and Suprapubic catheter Z93.59 [facility] [address] [id number] [address] [place] [address] Nov, Other chronic pain G89.29 an d Anxiety F41.9 [facility] [address] [id number] [address] [place] [address] Nov, Via [employer] [address] [place] [id number] Nov, Suprapubic catheter Z93.59 [facility] [address] [id number] [address] [place] [address] Oct, Other chronic pain G89.29 an d Anxiety F41.9 [facility] [address] [id number] [address] [place] [id number] Oct, [facility] [address] [id number] [address] [place] [address] Oct, Suprapubic catheter Z93.59 [facility] [address] [id number] [address] [place] [phone] Oct, Via [employer] [address] [place] [id number] Oct, [facility] [address] [id number] [address] [place] [id number] Oct, Anxiety F41.9 [facility] [address] [id number] [address] [place] [phone] Oct, Anxiety F41.9 [facility] [address] [place] [id number] Oct, Other chronic pain G89.29 [facility] [address] [id number] [address] [place] [address] Sep, Other chronic pain G89.29 Via [facility] [employer] [address] [place] [id number] Sep, Suprapubic catheter Z93.59 and Cervicalg ia M54.2 [facility] [address] [id number] [address] [place] [address] Sep, [facility] [address] [id number] [address] [place] [phone] Sep, [facility] [address] [id number] [address] [place] [phone] Sep, Via [employer] [address] [place] [id number] Aug, Cystitis N30.90 [facility] [address] [id number] [address] [place] [address] Aug, [facility] [address] [id number] [address] [place] [address] Aug, Other chronic pain G89.29 [facility] [address] [id number] [address] [place] [id number] Aug, Via [employer] [address] [place] [id number] Aug, Encounter for suprapubic catheter care Z 43.5 [facility] [address] [id number] [address] [place] [address] Jul, Via [employer] [address] [place] [id number] Jul, [facility] [address] [id number] [address] [place] [id number] Jul, Other chronic pain G89.29 [facility] [address] [id number] [address] [place] [address] Jul, [facility] [address] [id number] [address] [place] [id number] Jul, Via [facility] [address] [place] [id number] Jun, 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 [facility] [address] [id number] [address] [place] [address] Jun, Other chronic pain G89.29 [facility] [address] [id number] [address] [place] [id number] Jun, Via [facility] [address] [place] [id number] May, Anxiety F41.9 ; Type 2 diabetes mellitus without complication, without long-term current use of insulin E11.9 ; Hypertension I10 ; Low back pain M54.5 ; Paroxysmal atrial fibrillation I48.0 and 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 [facility] [address] [id number] [address] [place] [id number] May, Other chronic pain G89.29 [facility] [address] [place] [id number] May, Low back pain M54.5 [facility] [address] [id number] [address] [place] [address] May, [facility] [address] [id number] [address] [place] [address] Apr, Other chronic pain G89.29 [facility] [address] [id number] [address] [place] [address] Apr, [facility] [address] [id number] [address] [place] [address] Apr, Via [facility] [address] [place] [id number] Apr, Closed compression fracture of L3 lumbar vertebra with routine healing, subsequent encounter S32.030D [facility] [address] [place] [id number] Apr, Low back pain M54.5 [facility] [address] [place] [id number] Apr, Coccydynia M53.3 [facility] [address] [id number] [address] [place] [address] March, [facility] [address] [id number] [address] [place] [address] March, Other chronic pain G89.29 [facility] [address] [id number] [address] [place] [address] March, [facility] [address] [id number] [address] [place] [address] March, [facility] [address] [id number] [address] [place] [id number] Feb, [facility] [address] [id number] [address] [place] [address] Feb, Other chronic pain G89.29 Via [facility] [address] [place] [id number] Feb, Other chronic pain G89.29 and Anxiety F4 1.9 [facility] [address] [id number] [address] [place] [address] Feb, [facility] [address] [id number] [address] [place] [address] Jan, [facility] [address] [id number] [address] [place] [address] Jan, [facility] [address] [id number] [address] [place] [address] Jan, [facility] [address] [id number] [address] [place] [address] Jan, [facility] [address] [id number] [address] [place] [address] Dec, Via [facility] [address] [place] [id number] Dec, Peripheral vascular disease I73.9 ; 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 ; Other chronic pain G89.29 ; Anxiety F41.9 ; Reactive depression F32.9 ; Insomnia G47.00 and Type 2 diabetes mellitus without complication, without long-term current use of insulin E11.9 [facility] [address] [id number] [place] [address] Nov, [facility] [address] [id number] [place] [id number] Nov, Anxiety F41.9 [facility] [address] [id number] [address] [place] [address] Nov, [facility] [address] [id number] [place] [id number] Nov, Anxiety F41.9 Via [facility] [employer] [address] [place] [id number] Nov, Status post surgery Z98.890 ; Confused R 41.0 ; Anxiety F41.9 and Other chronic pain G89.29 [facility] [address] [id number] [place] [id number] Nov, Other chronic pain G89.29 [facility] [address] [id number] [address] [place] [id number] Oct, [facility] [address] [id number] [place] [id number] Oct, Other chronic pain G89.29 [facility] [address] [id number] [address] [place] [id number] Oct, Anxiety F41.9 [facility] [address] [id number] [place] [id number] Sep, Other chronic pain G89.29 [facility] [address] [id number] [place] [id number] Sep, [facility] [address] [place] [id number] Aug, Dysuria R30.0 and Anxiety F41.9 [facility] [address] [id number] [address] [place] [address] Aug, [facility] [address] [id number] [place] [id number] Aug, Other chronic pain G89.29 [facility] [address] [id number] [address] [place] [address] Jul, Other chronic pain G89.29 [facility] [address] [id number] [place] [id number] Jun, [facility] [address] [id number] [place] [id number] Jun, Other chronic pain G89.29 [facility] [address] [id number] [address] [place] [address] Jun, [facility] [address] [id number] [address] [place] [address] May, Other chronic pain G89.29 [facility] [address] [id number] [address] [place] [address] Apr, Other chronic pain G89.29 [facility] [address] [place] [id number] Apr, Reactive depression F32.9 and Pharyngeal dysphagia R13.13 [facility] [address] [facility] [id number] [address] [place] [address] Apr, Urinary tract infection with out hematuria, site unspecified N39.0 [facility] [address] [id number] [address] [place] [address] March, Other chronic pain G89.29 [facility] [address] [id number] [address] [place] [phone] Feb, Other chronic pain G89.29 [facility] [address] [id number] [address] [place] [address] Feb, [facility] [address] [id number] [place] [id number] Feb, [facility] [address] [place] [id number] Feb, Dysuria R30.0 and Ventral hernia without obstruction or gangrene K43.9 [facility] [address] [id number] [address] [place] [address] Jan, Other chronic pain G89.29 [facility] [address] [id number] [id number] Dec, Other chronic pain G89.29 [facility] [address] [id number] [address] [place] [id number] Nov, Other chronic pain G89.29 [facility] [address] [place] [id number] Nov, Lymphadenitis I88.9 [facility] [address] [id number] [address] [place] [address] Nov, Other chronic pain G89.29 [facility] [address] [id number] [address] [place] [id number] Nov, [facility] [id number] [place] [id number] Nov, Other chronic pain G89.29 [facility] [address] [place] [id number] Oct, Low back pain M54.5 ; Hypertension I10 a nd Type 2 diabetes mellitus without complication, without long-term current use of insulin E11.9 [facility] [address] [id number] [address] [place] [phone] Oct, [facility] [address] [id number] [address] [place] [id number] Oct, [facility] [address] [id number] [address] [place] [phone] Oct, [facility] [address] [id number] [address] [place] [id number] Oct, [facility] [address] [id number] [address] [place] [id number] Sep, [facility] [address] [id number] [address] [place] [id number] Sep, [facility] [address] [id number] [address] [place] [id number] Aug, Other chronic pain G89.29 [facility] [address] [id number] [address] [place] [id number] Jul, [facility] [address] [id number] [address] [place] [id number] Jul, [facility] [address] [id number] [address] [place] [id number] Jul, [facility] [address] [id number] [address] [place] [id number] Jun, [facility] [address] [id number] [address] [place] [id number] Jun, [facility] [address] [place] [id number] Jun, Low back pain M54.5 ; Other chronic pain G89.29 and Coronary artery disease I25.10 [facility] [address] [id number] [address] [place] [id number] Jun, [facility] [address] [id number] [address] [place] [phone] May, [facility] [address] [id number] [address] [place] [id number] May, [facility] [address] [id number] [address] [place] [id number] May, Other chronic pain G89.29 [facility] [address] [id number] [address] [place] [id number] May, [facility] [address] [id number] [address] [place] [id number] Apr, [facility] [address] [id number] [address] [place] [id number] 17 Apr, 2016 Acute cystitis without hemat uria N30.00 [facility] [address] [id number] [address] [place] [id number] Apr, Acute cystitis without hemat uria N30.00 ; Coronary artery disease I25.10 ; Low back pain M54.5 and Other chronic pain G89.29 [facility] [address] [id number] [address] [place] [id number] Apr, Other chronic pain G89.29 [facility] [address] [id number] [address] [place] [id number] March, Other chronic pain G89.29 [facility] [address] [id number] [address] [place] [id number] 18 Feb, 2016 [facility] [facility] [address] [id number] [address] [place] [address] Feb, Arthritis M19.90 [facility] [address] [id number] [address] [place] [id number] Feb, [facility] [address] [id number] [address] [place] [address] Jan, [facility] [address] [id number] [address] [place] [address] Jan, [facility] [address] [id number] [address] [place] [address] Jan, Other chronic pain G89.29 [facility] [address] [id number] [address] [place] [address] Jan, Hypertension I10 ; Coronary artery disease I25.10 and Insomnia G47.00 [facility] [address] [id number] [address] [place] [address] Jan, [facility] [address] [id number] [address] [place] [address] Dec, Right hip pain M25.551 [facility] [address] [id number] [address] [place] [address] Dec, [facility] [address] [id number] [address] [place] [address] Dec, [facility] [address] [id number] [address] [place] [address] Dec, [facility] [address] [id number] [address] [place] [address] Dec, Other chronic pain G89.29 [facility] [address] [id number] [address] [place] [address] Dec, [facility] [address] [id number] [address] [place] [address] Nov, [facility] [address] [id number] [address] [place] [id number] Nov, Other chronic pain G89.29 [facility] [address] [id number] [address] [place] [address] Nov, Right hip pain M25.551 and C oronary artery disease I25.10 [facility] [address] [id number] [address] [place] [address] Nov, Other chronic pain G89.29 [facility] [address] [id number] [address] [place] [address] Oct, [facility] [address] [id number] [address] [place] [address] Oct, [facility] [address] [facility] [id number] [address] [place] [address] Sep, [facility] [address] [id number] [address] [place] [address] Sep, [facility] [address] [facility] [id number] [address] [place] [address] Aug, [facility] [address] [facility] [id number] [address] [place] [address] Aug, Hypertension I10 ; Coronary artery disease I25.10 and Arthritis M19.90 [facility] [address] [id number] [address] [place] [address] Jun, [facility] [address] [id number] [address] [place] [address], [place] [address] Jun, Essential hypertension, jayson gn 401.1 ; Other chronic pain 338.29 and Chronic airway obstruction, not elsewhere classified 496 [facility] [address] [id number] [address] [place] [address], [place] [address] Jun, [facility] [address] [id number] [address] [place] [address], [place] [address] Jun, [facility] [address] [id number] [address] [place] [address], [place] [address] Jun, [facility] [address] [id number] [address] [place] [address], [place] [address] May, [facility] [address] [id number] [address] [place] [address], [place] [address] May, [facility] [address] [id number] [address] [place] [address], [place] [address] Apr, [facility] [address] [id number] [address] [place] [address], [place] [address] Apr, [facility] [address] [id number] [address] [place] [address], [place] [address] Apr, [facility] [address] [id number] [address] [place] [address] March, [facility] [address] [id number] [address] [place] [address], [place] [address] March, [facility] [address] [id number] [address] [place] [address] March, [facility] [address] [id number] [address] [place] [id number] March, [facility] [address] [id number] [address] [place] [address] March, Sialadenitis 527.2 [facility] [address] [id number] [address] [place] [address] Feb, [facility] [address] [id number] [address] [place] [address], [place] [address] Feb, [facility] [address] [id number] [address] [place] [address], [place] [address] Feb, [facility] [address] [id number] [address] [place] [address], [place] [id number] 14 Feb, 2015 [facility] [address] [id number] [address] [place] [address], [place] [address] Feb, [facility] [address] [id number] [address] [place] [address], [place] [address] Jan, [facility] [address] [id number] [address] [place] [address], [place] [address] Jan, [facility] [address] [id number] [address] [place] [address], [place] [address] Jan, [facility] [address] [id number] [address] [place] [address], [place] [address] Jan, [facility] [address] [id number] [address] [place] [address], [place] [address] Jan, [facility] [address] [id number] [address] [place] [address], [place] [address] Jan, [facility] [address] [id number] [address] [place] [address], [place] [id number] Dec, 2014 [facility] [address] [id number] [address] [place] [address], [place] [address] Dec, 2014 [facility] [address] [id number] [address] [place] [address], [place] [address] Dec, 2014 [facility] [address] [id number] [address] [place] [address], [place] [address] Dec, 2014 [facility] [address] [id number] [address] [place] [address], [place] [address] 06 Dec, 2014 [facility] [address] [id number] [address] [place] [address], [place] [address] Dec, [facility] [address] [id number] [address] [place] [address], [place] [address] Nov, [facility] [address] [id number] [address] [place] [address], [place] [address] Nov, [facility] [address] [id number] [address] [place] [address], [place] [address] Nov, [facility] [address] [id number] [address] [place] [address], [place] [address] Nov, [facility] [address] [id number] [address] [place] [address], [place] [address] Nov, [facility] [address] [id number] [address] [place] [address], [place] [address] Nov, [facility] [address] [id number] [address] [place] [address], [place] [address] Nov, [facility] [address] [id number] [address] [place] [address], [place] [address] Nov, [facility] [address] [id number] [address] [place] [address], [place] [address] Nov, [facility] [address] [id number] [address] [place] [address], [place] [address] Nov, [facility] [address] [id number] [address] [place] [address], [place] [address] Nov, [facility] [address] [id number] [address] [place] [address], [place] [address] Nov, [facility] [address] [id number] [address] [place] [address], [place] [address] Nov, [facility] [address] [id number] [address] [place] [address], [place] [address] Nov, [facility] [address] [id number] [address] [place] [address], [place] [address] Oct, [facility] [address] [id number] [address] [place] [address], [place] [address] Oct, [facility] [address] [id number] [address] [place] [address], [place] [address] Oct, [facility] [address] [id number] [address] [place] [address], [place] [address] 18 Oct, 2014 [facility] [address] [id number] [address] [place] [address], [place] [address] Oct, [facility] [address] [id number] [address] [place] [address], [place] [address] Oct, [facility] [address] [id number] [address] [place] [address], [place] [address] Oct, [facility] [address] [id number] [address] [place] [address], [place] [address] Oct, [facility] [address] [id number] [address] [place] [address], [place] [address] Oct, [facility] [address] [id number] [address] [place] [address], [place] [address] Sep, [facility] [address] [id number] [address] [place] [address], [place] [address] Sep, [facility] [address] [id number] [address] [place] [address], [place] [address] Sep, [facility] [address] [id number] [address] [place] [address], [place] [address] Sep, [facility] [address] [id number] [address] [place] [address], [place] [address] Sep, [facility] [address] [id number] [address] [place] [address], [place] [address] Sep, [facility] [address] [id number] [address] [place] [address], [place] [address] Sep, [facility] [address] [id number] [address] [place] [address] Sep, [facility] [address] [id number] [address] [place] [address], [place] [address] Sep, [facility] [address] [id number] [address] [place] [id number] Sep, [facility] [address] [id number] [address] [place] [address], [place] [address] Sep, [facility] [address] [id number] [address] [place] [address], [place] [address] Sep, [facility] [address] [id number] [address] [place] [address], [place] [address] Aug, [facility] [address] [id number] [address] [place] [address], [place] [address] Aug, [facility] [address] [id number] [address] [place] [address] Aug, [facility] [address] [id number] [address] [place] [address], [place] [address] Aug, [facility] [address] [id number] [address] [place] [address], [place] [address] Aug, [facility] [address] [id number] [address] [place] [address], [place] [address] Aug, [facility] [address] [id number] [address] [place] [address], [place] [address] Aug, [facility] [address] [id number] [address] [place] [address] Aug, [facility] [address] [id number] [address] [place] [address], [place] [address] 30 Jul, 2014 [facility] [address] [id number] [address] [place] [address], [place] [address] 30 Jul, 2014 [facility] [address] [id number] [address] [place] [address], [place] [address] 30 Jul, 2014 [facility] [address] [id number] [facility] [place] [address] 30 Jul, 2013 [facility] [address] [id number] [facility] [place] [address] 25 Jul, 2013 [facility] [address] [id number] [facility] [place] [address] 25 Jul, 2013 [facility] [address] [id number] [facility] [place] [address] 15 Jul, 2013 [facility] [address] [id number] [facility] [place] [address] 15 Jul, 2013 [facility] [address] [id number] [address] [place] [address], [place] [address] Jul, [facility] [address] [id number] [address] [place] [address], [place] [address] Jul, [facility] [address] [id number] [address] [place] [address], [place] [address] Jun, [facility] [address] [id number] [address] [place] [address], [place] [address] Jun, [facility] [address] [id number] [address] [place] [address], [place] [address] Jun, [facility] [address] [id number] [address] [place] [address], [place] [address] Jun, [facility] [address] [id number] [address] [place] [address], [place] [address] Jun, [facility] [address] [id number] [address] [place] [address], [place] [address] Jun, [facility] [address] [id number] [address] [place] [address], [place] [address] Jun, [facility] [address] [id number] [address] [place] [address], [place] [address] Jun, [facility] [address] [id number] [address] [place] [address], [place] [address] Jun, [facility] [address] [id number] [facility] [place] [address] Jun, [facility] [address] [id number] [facility] [place] [address] Jun, [facility] [address] [id number] [address] [place] [address], [place] [address] Jun, [facility] [address] [id number] [address] [place] [address], [place] [address] Jun, [facility] [address] [id number] [address] [place] [address], [place] [address] Jun, [facility] [address] [id number] [address] [place] [address], [place] [address] Jun, [facility] [address] [id number] [address] [place] [address], [place] [address] Jun, [facility] [address] [id number] [address] [place] [address], [place] [address] Jun, [facility] [address] [id number] [address] [place] [address], [place] [address] Jun, [facility] [address] [id number] [address] [place] [address], [place] [address] Jun, [facility] [address] [id number] [address] [place] [address], [place] [address] Jun, [facility] [address] [id number] [address] [place] [address], [place] [address] Jun, [facility] [address] [id number] [address] [place] [address], [place] [address] Jun, [facility] [address] [id number] [address] [place] [address], [place] [address] May, [facility] [address] [id number] [address] [place] [address], [place] [address] May, [facility] [address] [id number] [facility] [place] [address] May, 2013 [facility] [address] [id number] [facility] [place] [address] May, [facility] [address] [id number] [facility] [place] [address] May, [facility] [address] [id number] [address] [place] [address], [place] [address] May, 2013 [facility] [address] [id number] [facility] [place] [address] May, 2013 [facility] [address] [id number] [address] [place] [address], [place] [address] May, 2013 [facility] [address] [id number] [address] [place] [address], [place] [address] May, 2013 [facility] [address] [id number] [address] [place] [address], [place] [address] May, [facility] [address] [id number] [address] [place] [address], [place] [address] May, [facility] [address] [id number] [address] [place] [address], [place] [address] May, [facility] [address] [id number] [address] [place] [address], [place] [address] May, [facility] [address] [id number] [address] [place] [address], [place] [address] Apr, [facility] [address] [id number] [address] [place] [address], [place] [address] Apr, [facility] [address] [id number] [address] [place] [address], [place] [address] Apr, [facility] [address] [id number] [address] [place] [address], [place] [address] Apr, [facility] [address] [id number] [address] [place] [address], [place] [address] Apr, [facility] [address] [id number] [facility] [place] [address] Apr, [facility] [address] [id number] [address] [place] [address], [place] [address] Apr, [facility] [address] [id number] [address] [place] [address], [place] [address] Apr, [facility] [address] [id number] [address] [place] [address], [place] [address] Apr, [facility] [address] [id number] [address] [place] [address], [place] [address] March, [facility] [address] [id number] [address] [place] [address], [place] [id number] March, [facility] [address] [id number] [address] [place] [address], [place] [address] March, [facility] [address] [id number] [address] [place] [address], [place] [id number] March, [facility] [address] [id number] [address] [place] [address], [place] [id number] March, [facility] [address] [id number] [address] [place] [address], [place] [id number] March, [facility] [address] [id number] [address] [place] [address], [place] [address] March, [facility] [address] [id number] [address] [place] [address], [place] [address] March, [facility] [address] [id number] [address] [place] [address], [place] [address] March, [facility] [address] [id number] [address] [place] [address], [place] [id number] March, [facility] [address] [id number] [address] [place] [address], [place] [id number] March, [facility] [address] [id number] [address] [place] [address], [place] [id number] March, [facility] [address] [id number] [address] [place] [address], [place] [id number] March, [facility] [address] [id number] [address] [place] [address], [place] [id number] March, [facility] [address] [id number] [address] [place] [address], [place] [id number] March, [facility] [address] [id number] [address] [place] [address], [place] [id number] March, [facility] [address] [id number] [address] [place] [address], [place] [id number] March, [facility] [address] [id number] [address] [place] [address], [place] [id number] March, [facility] [address] [id number] [address] [place] [address], [place] [id number] March, [facility] [address] [id number] [address] [place] [address], [place] [id number] March, [facility] [address] [id number] [address] [place] [address], [place] [id number] Feb, [facility] [address] [id number] [address] [place] [address], [place] [id number] Feb, [facility] [address] [id number] [address] [place] [address], [place] [id number] Feb, [facility] [address] [id number] [address] [place] [address], [place] [address] Feb, [facility] [address] [id number] [address] [place] [address], [place] [address] Feb, [facility] [address] [id number] [address] [place] [address], [place] [id number] Feb, [facility] [address] [id number] [address] [place] [address], [place] [id number] Feb, [facility] [address] [id number] [facility] [place] [address] 11 Feb, [address] [facility] [address] [id number] [address] [place] [address], [place] [id number] Jan, [facility] [address] [id number] [facility] [place] [address] Jan, [facility] [address] [id number] [address] [place] [address], [place] [id number] Jan, [facility] [address] [id number] [address] [place] [address], [place] [id number] Jan, [facility] [address] [id number] [address] [place] [address], [place] [id number] Jan, [facility] [address] [id number] [address] [place] [address], [place] [id number] Jan, [facility] [address] [id number] [address] [place] [address], [place] [id number] Jan, [facility] [address] [id number] [address] [place] [address], [place] [id number] Jan, [facility] [address] [id number] [address] [place] [address], [place] [id number] Jan, [facility] [address] [id number] [address] [place] [address], [place] [id number] Jan, [facility] [address] [id number] [address] [place] [address], [place] [id number] Dec, [facility] [address] [id number] [address] [place] [address], [place] [id number] Dec, [facility] [address] [id number] [address] [place] [address], [place] [id number] Dec, [facility] [address] [id number] [address] [place] [address], [place] [id number] [address] [facility] [address] [id number] [address] [place] [address], [place] [id number] Dec, [facility] [address] [id number] [facility] [place] [address] Dec, [facility] [address] [id number] [address] [place] [address], [place] [address] Dec, [facility] [address] [id number] [address] [place] [address], [place] [id number] Dec, [facility] [address] [id number] [address] [place] [address], [place] [id number] Nov, [facility] [address] [id number] [address] [place] [address], [place] [id number] Nov, [facility] [address] [id number] [address] [place] [address], [place] [id number] Nov, [facility] [address] [id number] [address] [place] [address], [place] [id number] Nov, [facility] [address] [id number] [address] [place] [address], [place] [address] Nov, [facility] [address] [id number] [address] [place] [address], [place] [id number] Nov, [facility] [address] [id number] [address] [place] [address], [place] [id number] Nov, [facility] [address] [id number] [address] [place] [address], [place] [id number] Nov, [facility] [address] [id number] [address] [place] [address], [place] [id number] Nov, [facility] [address] [id number] [address] [place] [address], [place] [id number] Nov, [facility] [address] [id number] [address] [place] [address], [place] [address] Nov, [facility] [address] [id number] [address] [place] [address], [place] [address] Nov, [facility] [address] [id number] [address] [place] [address], [place] [address] 15 Nov, 2013 [facility] [address] [id number] [address] [place] [address], [place] [address] 30 Oct, 2013 [facility] [address] [id number] [address] [place] [address], [place] [address] 30 Oct, 2013 [facility] [address] [id number] [address] [place] [address], [place] [address] Oct, [facility] [address] [id number] [address] [place] [address], [place] [address] Oct, [facility] [address] [id number] [address] [place] [address], [place] [address] Oct, [facility] [address] [id number] [address] [place] [address], [place] [address] Oct, [facility] [address] [id number] [address] [place] [address], [place] [address] Oct, [facility] [address] [id number] [address] [place] [address], [place] [address] 18 Oct, 2013 [facility] [address] [id number] [address] [place] [address], [place] [address] 17 Oct, 2013 [facility] [address] [id number] [address] [place] [address], [place] [address] 17 Oct, 2013 [facility] [address] [id number] [address] [place] [address], [place] [address] 03 Oct, 2013 [facility] [address] [id number] [address] [place] [address], [place] [address] Oct, [facility] [address] [id number] [address] [place] [address], [place] [address] 02 Oct, 2013 [facility] [address] [id number] [address] [place] [address], [place] [address] 02 Oct, 2013 [facility] [address] [id number] [address] [place] [address], [place] [address] Sep, [facility] [address] [id number] [address] [place] [address], [place] [id number] 14 Sep, 2013 [facility] [address] [id number] [address] [place] [address], [place] [address] Sep, [facility] [address] [id number] [address] [place] [address], [place] [address] Sep, [facility] [address] [id number] [address] [place] [address], [place] [address] Sep, [facility] [address] [id number] [address] [place] [address], [place] [address] Sep, [facility] [address] [id number] [address] [place] [address], [place] [address] Sep, [facility] [address] [id number] [address] [place] [address], [place] [address] Sep, [facility] [address] [id number] [address] [place] [address] Sep, [facility] [address] [id number] [address] [place] [address], [place] [address] Sep, [facility] [address] [id number] [address] [place] [address] Aug, [facility] [address] [id number] [address] [place] [address] Aug, [facility] [address] [id number] [address] [place] [id number] Aug, [facility] [address] [id number] [address] [place] [address] Aug, [facility] [address] [id number] [address] [place] [address] Aug, [facility] [address] [id number] [address] [place] [address] Aug, [facility] [address] [id number] [address] [place] [address] 23 Aug, 2012 [facility] [address] [id number] [address] [place] [address], [place] [address] 23 Aug, 2012 [facility] [address] [id number] [address] [place] [address] 22 Aug, 2013 [facility] [address] [id number] [address] [place] [address], [place] [address] 22 Aug, 2013 [facility] [address] [id number] [address] [place] [address] 18 Aug, 2013 [facility] [address] [id number] [address] [place] [address], [place] [address] 18 Aug, 2013 [facility] [address] [id number] [address] [place] [address] 18 Aug, 2013 [facility] [address] [id number] [address] [place] [address] 18 Aug, 2013 [facility] [address] [id number] [address] [place] [address], [place] [address] 17 Aug, 2013 [facility] [address] [id number] [address] [place] [address] 14 Aug, 2013 [facility] [address] [id number] [address] [place] [address] 14 Aug, 2013 [facility] [address] [id number] [address] [place] [address] 01 Aug, 2013 [facility] [address] [id number] [address] [place] [address] 20 Jul, 2012 [facility] [address] [id number] [address] [place] [address] 19 Jul, 2012 [facility] [address] [id number] [address] [place] [address] 18 Jul, 2012 [facility] [address] [id number] [address] [place] [address] 11 Jul, [address] [facility] [address] [id number] [facility] [place] [address] Jul, [facility] [address] [id number] [facility] [place] [address] Jun, [facility] [address] [id number] [facility] [place] [address] Jun, [facility] [address] [id number] [address] [place] [address], [place] [address] Jun, [facility] [address] [id number] [address] [place] [address], [place] [address] Jun, [facility] [address] [id number] [address] [place] [address], [place] [address] Jun, [facility] [address] [id number] [address] [place] [address], [place] [address] Jun, [facility] [address] [id number] [address] [place] [address], [place] [address] Jun, [facility] [address] [id number] [address] [place] [address], [place] [address] Jun, [facility] [address] [id number] [address] [place] [address], [place] [address] Jun, [facility] [address] [id number] [address] [place] [address], [place] [address] Jun, [facility] [address] [id number] [address] [place] [address], [place] [address] May, [facility] [address] [id number] [address] [place] [address], [place] [address] May, [facility] [address] [id number] [address] [place] [address], [place] [address] May, [facility] [address] [id number] [address] [place] [address], [place] [address] May, [facility] [address] [id number] [address] [place] [address] [address] May, [facility] [address] [id number] [address] [place] [address], [place] [address] May, [facility] [address] [id number] [address] [place] [address], [place] [address] May, [facility] [address] [id number] [address] [place] [address], [place] [address] May, [facility] [address] [id number] [address] [place] [address], [place] [address] May, [facility] [address] [id number] [address] [place] [address], [place] [address] Apr, [facility] [address] [id number] [address] [place] [address], [place] [address] Apr, [facility] [address] [id number] [address] [place] [address], [place] [address] Apr, [facility] [address] [id number] [address] [place] [address], [place] [address] Apr, [facility] [address] [id number] [address] [place] [address], [place] [address] Apr, [facility] [address] [id number] [address] [place] [address], [place] [address] Apr, [facility] [address] [id number] [address] [place] [address], [place] [address] Apr, [facility] [address] [id number] [address] [place] [address], [place] [address] March, [facility] [address] [id number] [address] [place] [address], [place] [address] Feb, [facility] [address] [id number] [address] [place] [address], [place] [address] Feb, [facility] [address] [id number] [address] [place] [address], [place] [address] Feb, [facility] [address] [id number] [address] [place] [address], [place] [address] 28 Jan, 2013 [facility] [address] [id number] [address] [place] [address], [place] [address] 21 Jan, 2013 [facility] [address] [id number] [address] [place] [address], [place] [address] 19 Jan, 2013 [facility] [address] [id number] [address] [place] [address], [place] [address] 14 Jan, 2013 [facility] [address] [id number] [address] [place] [address], [place] [address] 12 Jan, 2013 [facility] [address] [id number] [address] [place] [address], [place] [address] 08 Jan, 2013 [facility] [address] [id number] [address] [place] [address], [place] [address] 07 Jan, 2013 [facility] [address] [id number] [address] [place] [address], [place] [id number] 04 Jan, 2013 [facility] [address] [id number] [address] [place] [address], [place] [address] 28 Dec, 2012 [facility] [address] [id number] [address] [place] [address], [place] [address] 25 Dec, 2012 [facility] [address] [id number] [address] [place] [address], [place] [address] 13 Dec, 2012 [facility] [address] [id number] [address] [place] [address], [place] [address] 11 Dec, 2012 [facility] [address] [id number] [address] [place] [address], [place] [address] 07 Dec, 2012 [facility] [address] [id number] [address] [place] [address], [place] [address] 06 Dec, 2012 [facility] [address] [id number] [address] [place] [address], [place] [address] 05 Dec, [address] [facility] [address] [id number] [address] [place] [address], [place] [address] 31 Nov, 2012 [facility] [address] [id number] [address] [place] [address], [place] [address] 24 Nov, 2012 [facility] [address] [id number] [address] [place] [address], [place] [address] 18 Nov, 2012 [facility] [address] [id number] [address] [place] [address], [place] [address] 15 Nov, 2012 [facility] [address] [id number] [address] [place] [address], [place] [address] 10 Nov, 2012 [facility] [address] [id number] [address] [place] [address], [place] [address] Nov, [facility] [address] [id number] [address] [place] [address], [place] [address] Nov, [facility] [address] [id number] [address] [place] [address], [place] [address] Oct, [facility] [address] [id number] [address] [place] [address], [place] [address] Oct, [facility] [address] [id number] [address] [place] [address], [place] [address] Oct, [facility] [address] [id number] [address] [place] [address], [place] [address] Oct, [facility] [address] [id number] [address] [place] [address], [place] [address] 17 Oct, 2012 [facility] [address] [id number] [address] [place] [address], [place] [address] 17 Oct, 2012 [facility] [address] [id number] [address] [place] [address], [place] [address] Oct, [facility] [address] [id number] [address] [place] [address], [place] [address] 07 Oct, 2012 [facility] [address] [id number] [address] [place] [address], [place] [address] 05 Oct, 2012 [facility] [address] [id number] [address] [place] [address], [place] [address] Oct, [facility] [address] [id number] [address] [place] [address], [place] [address] Oct, [facility] [address] [id number] [address] [place] [address], [place] [address] Oct, [facility] [address] [id number] [address] [place] [address], [place] [address] Sep, [facility] [address] [id number] [address] [place] [address], [place] [address] Sep, [facility] [address] [id number] [address] [place] [address], [place] [address] Sep, [facility] [address] [id number] [address] [place] [address], [place] [address] Sep, [facility] [address] [id number] [address] [place] [address], [place] [address] Sep, [facility] [address] [id number] [address] [place] [address], [place] [address] Sep, [facility] [address] [id number] [address] [place] [address], [place] [address] Sep, [facility] [address] [id number] [address] [place] [address], [place] [address] Sep, [facility] [address] [id number] [address] [place] [address], [place] [address] Sep, [facility] [address] [id number] [address] [place] [address], [place] [address] Sep, [facility] [address] [id number] [address] [place] [address], [place] [address] Sep, [facility] [address] [id number] [address] [place] [address], [place] [address] Aug, [facility] [address] [id number] [address] [place] [address] Aug, [facility] [address] [id number] [address] [place] [address], [place] [address] Aug, [facility] [address] [id number] [address] [place] [address], [place] [address] Aug, [facility] [address] [id number] [address] [place] [address], [place] [address] Aug, [facility] [address] [id number] [address] [place] [address], [place] [address] Aug, [facility] [address] [id number] [address] [place] [address], [place] [id number] Aug, [facility] [address] [id number] [address] [place] [address], [place] [address] Aug, [facility] [address] [id number] [address] [place] [address], [place] [address] Aug, [facility] [address] [id number] [address] [place] [address], [place] [address] Aug, [facility] [address] [id number] [address] [place] [address], [place] [address] Jul, [facility] [address] [id number] [address] [place] [address], [place] [address] 20 Jul, 2012 [facility] [address] [id number] [address] [place] [address], [place] [address] 10 Jul, 2012 [facility] [address] [id number] [address] [place] [address], [place] [id number] 06 Jul, 2012 [facility] [address] [id number] [address] [place] [address], [place] [address] 30 Jun, 2012 [facility] [address] [id number] [address] [place] [address], [place] [address] Jun, [facility] [address] [id number] [address] [place] [address], [place] [address] 16 Jun, 2012 [facility] [address] [id number] [address] [place] [address], [place] [address] Jun, [facility] [address] [id number] [address] [place] [address], [place] [address] Jun, [facility] [address] [id number] [address] [place] [address], [place] [address] Jun, [facility] [address] [id number] [address] [place] [address], [place] [address] Jun, [facility] [address] [id number] [address] [place] [address], [place] [id number] May, [facility] [address] [id number] [address] [place] [address], [place] [address] May, [facility] [address] [id number] [address] [place] [address], [place] [address] May, [facility] [address] [id number] [address] [place] [address], [place] [id number] May, [facility] [address] [id number] [address] [place] [address], [place] [id number] May, [facility] [address] [id number] [address] [place] [address], [place] [address] Apr, [facility] [address] [id number] [address] [place] [address], [place] [id number] Apr, [facility] [address] [id number] [address] [place] [address], [place] [address] Apr, [facility] [address] [id number] [address] [place] [address], [place] [address] Apr, [facility] [address] [id number] [address] [place] [address], [place] [address] Apr, [facility] [address] [id number] [address] [place] [address], [place] [address] March, [facility] [address] [id number] [address] [place] [address], [place] [id number] March, [facility] [address] [id number] [address] [place] [address], [place] [id number] March, [facility] [address] [id number] [address] [place] [address], [place] [id number] March, [facility] [address] [id number] [address] [place] [address], [place] [id number] March, [facility] [address] [id number] [address] [place] [address], [place] [id number] March, [facility] [address] [id number] [address] [place] [address], [place] [id number] March, [facility] [address] [id number] [address] [place] [address], [place] [id number] March, [facility] [address] [id number] [address] [place] [address], [place] [id number] March, [facility] [address] [id number] [address] [place] [address], [place] [id number] March, [facility] [address] [id number] [address] [place] [address], [place] [id number] Feb, [facility] [address] [id number] [address] [place] [address], [place] [id number] Feb, [facility] [address] [id number] [address] [place] [address], [place] [id number] Feb, [facility] [address] [id number] [address] [place] [address], [place] [id number] Feb, [facility] [address] [id number] [address] [place] [address], [place] [id number] Feb, [facility] [address] [id number] [address] [place] [address], [place] [id number] Feb, [facility] [address] [id number] [address] [place] [address], [place] [id number] Feb, [facility] [address] [id number] [address] [place] [address], [place] [id number] Feb, [facility] [address] [id number] [address] [place] [address], [place] [id number] Feb, [facility] [address] [id number] [address] [place] [address], [place] [id number] 08 Jan, [address] [facility] [address] [id number] [address] [place] [address], [place] [id number] Jan, [facility] [address] [id number] [address] [place] [address], [place] [id number] Jan, [facility] [address] [id number] [address] [place] [address], [place] [id number] Jan, [facility] [address] [id number] [address] [place] [address], [place] [id number] Dec, [facility] [address] [id number] [address] [place] [address], [place] [id number] Dec, [facility] [address] [id number] [address] [place] [address], [place] [id number] Nov, [facility] [address] [id number] [address] [place] [address], [place] [id number] Nov, [facility] [address] [id number] [address] [place] [address], [place] [id number] Nov, [facility] [address] [id number] [address] [place] [address], [place] [id number] Nov, [facility] [address] [id number] [address] [place] [address], [place] [id number] Nov, [facility] [address] [id number] [address] [place] [address], [place] [id number] Oct, [facility] [address] [id number] [address] [place] [address], [place] [id number] Oct, [facility] [address] [id number] [address] [place] [address], [place] [id number] Oct, [facility] [address] [id number] [address] [place] [id number] Oct, [facility] [address] [facility] [id number] [address] [place] [id number] Oct, [facility] [address] [facility] [id number] [address] [place] [id number] Oct, [facility] [address] [facility] [id number] [address] [place] [id number] Oct, [facility] [address] [facility] [id number] [address] [place] [id number] Oct, [facility] [address] [facility] [id number] [address] [place] [id number] Sep, IMMUNIZATIONS No Known Immunizations SOCIAL HISTORY [...] fever, discharged 11/27/2017 11/26/2017 Hospitalization History [facility]- Went Unrepsonsive, Hit head 2017 Hospitalization History [facility]- Back Pain 8
--- OUTSIDE RECORDS SUMMARY | 2020-06-18 14:43 | XMS REPORT ---
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 Name Role Phone SHARIF JOHNSON Unavailable PROBLEMS Type Condition ICD9-CM Code ZXO55-GT Code Onset Dates Condition S tatus SNOMED Code Problem Hypertension I10 Active 3903314 3 Problem Hyperlipidemia E78.5 Active 06867 004 Problem Coronary artery disease I25.10 Active 20700543 Problem Low back pain M54.5 Active 118777 009 Problem Other chronic pain G89.29 Active 8 7699383 Problem Ventral hernia without obstruction or gangrene K43 .9 Active 479757270 Problem Type 2 diabetes mellitus wit hout complication, without long-term current use of insulin E11.9 Active 381225446 Problem Anxiety F41.9 Active 52316280 Problem Peripheral vascular disease I73.9 Ac tive 422602905 Problem Insomnia G47.00 Active 767923276 Problem Microcytic anemia D50.9 Active 23 3218263 Problem Pharyngeal dysphagia R13.13 Active [id number] Problem Other iron deficiency anemia D50.8 A ctive 60619663 Problem Reactive depression F32.9 Active 25087234 Problem Paroxysmal atrial fibrillation I48.0 Active 396662386 Problem 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 Active 89594054 Problem Encounter for suprapubic catheter care Z43.5 Active 097959853 Problem Neurogenic bladder N31.9 Active 3 08196096 ALLERGIES No Information ENCOUNTERS Encounter Location Date Diagnosis [facility] [address] [facility] [id number] [address] [place] [phone] Jan, Anxiety F41.9 and Strain of right shoulder, subsequent encounter S46.911D [facility] [address] [facility] [id number] [address] [place] [phone] Jan, Via [facility] [address] [place] [id number] Jan, Neurogenic bladder N31.9 [place] [address] [id number] [address] [place] [phone] Dec, [place] [address] [id number] [address] [place] [phone] Dec, [place] [address] [id number] [address] [place] [phone] Dec, Anxiety F41.9 and Strain of right shoulder, subsequent encounter S46.911D [place] [address] [id number] [address] [place] [id number] 10 Dec, 2019 Other iron deficiency anemia D50.8 [place] [address] [id number] [address] [place] [phone] 04 Dec, 2019 Via [facility] [address] [place] [id number] Dec, Encounter for suprapubic catheter care Z 43.5 and Microcytic anemia D50.9 [place] [address] [id number] [address] [place] [phone] Dec, [place] [address] [id number] [address] [place] [phone] Nov, Anxiety F41.9 and Strain of right shoulder, subsequent encounter S46.911D [place] [address] [id number] [address] [place] [phone] Nov, Hypertension I10 Via [facility] [address] [place] [id number] Nov, Pneumonia of both lungs due to infectiou s organism, unspecified part of lung J18.9 and Suprapubic catheter Z93.59 [place] [address] [id number] [address] [place] [phone] Nov, Hypertension I10 and Reactiv e depression F32.9 [place] [address] [id number] [address] [place] [phone] Oct, Strain of right shoulder, scherer bsequent encounter S46.911D and Anxiety F41.9 [facility] [address] [id number] [address] [place] [id number] Oct, Via [employer] [address] [place] [id number] Oct, Suprapubic catheter Z93.59 and Candidias is, intertriginous B37.2 [facility] [address] [id number] [address] [place] [id number] Oct, Suprapubic catheter Z93.59 [facility] [address] [id number] [address] [place] [id number] Oct, Anxiety F41.9 and Strain of right shoulder, subsequent encounter S46.911D [facility] [address] [id number] [address] [place] [phone] Sep, [facility] [address] [id number] [address] [place] [phone] Sep, [facility] [address] [id number] [address] [place] [phone] Sep, Via [employer] [address] [place] [id number] Sep, Suprapubic catheter Z93.59 [facility] [address] [id number] [address] [place] [id number] Sep, Anxiety F41.9 and Strain of right shoulder, subsequent encounter S46.911D [facility] [address] [id number] [address] [place] [phone] Aug, [facility] [address] [id number] [address] [place] [phone] Aug, [facility] [address] [id number] [address] [place] [phone] Aug, Anxiety F41.9 and Strain of right shoulder, subsequent encounter S46.911D [facility] [employer] [address] [place] [id number] Aug, Suprapubic catheter Z93.59 [facility] [address] [id number] [address] [place] [phone] Jul, Strain of right shoulder, scherer bsequent encounter S46.911D and Anxiety F41.9 [facility] [address] [id number] [address] [place] [id number] Jul, Anxiety F41.9 [facility] [address] [id number] [address] [place] [phone] Jun, [facility] [address] [id number] [address] [place] [phone] Jun, [facility] [address] [id number] [address] [place] [id number] Jun, [facility] [address] [id number] [address] [place] [id number] Jun, Strain of right shoulder, scherer bsequent encounter S46.911D [facility] [address] [id number] [address] [place] [address] Jun, Strain of right shoulder, scherer bsequent encounter S46.911D [facility] [address] [id number] [address] [place] [address] Jun, Anxiety F41.9 [facility] [address] [place] [id number] Jun, Neurogenic bladder N31.9 and Anxiety F41 .9 [facility] [address] [place] [id number] May, Anxiety F41.9 [facility] [address] [id number] [address] [place] [id number] May, Dysuria R30.0 [facility] [address] [id number] [address] [place] [phone] May, Strain of right shoulder, scherer bsequent encounter S46.911D and Anxiety F41.9 [place] [address] [id number] [address] [place] [phone] 27 Apr, 2019 Via [facility] [address] [place] [id number] Apr, Strain of right shoulder, subsequent enc ounter S46.911D [place] [address] [id number] [address] [place] [id number] 14 Apr, 2019 Strain of right shoulder, scherer bsequent encounter S46.911D and Anxiety F41.9 [facility] [address] [place] [id number] 13 Apr, 2019 Type 2 diabetes mellitus without complic ation, without long-term current use of insulin E11.9 and Neurogenic bladder N31.9 [facility] [address] [place] [id number] 11 Apr, 2019 Strain of right shoulder, subsequent enc ounter S46.911D ; History of GI bleed Z87.19 ; Neurogenic bladder N31.9 and Reactive depression F32.9 [place] [address] [id number] [address] [place] [id number] 10 Apr, 2019 Acute pain of left shoulder M25.512 [place] [address] [id number] [address] [place] [phone] 07 Apr, 2019 [place] [address] [id number] [address] [place] [phone] Apr, Anxiety F41.9 and 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 [facility] [address] [place] [id number] March, Gastrointestinal hemorrhage associated w ith acute gastritis K29.01 [place] [address] [id number] [address] [place] [phone] March, [facility] [address] [place] [id number] March, Bronchitis J40 [place] [address] [id number] [address] [place] [phone] March, Cough R05 [facility] [address] [id number] [address] [place] [phone] March, Other chronic pain G89.29 [facility] [address] [id number] [address] [place] [id number] March, Anxiety F41.9 [facility] [address] [id number] [address] [place] [phone] March, [facility] [address] [id number] [address] [place] [address] Feb, Other chronic pain G89.29 [facility] [address] [id number] [address] [place] [id number] Feb, Anxiety F41.9 [facility] [address] [id number] [address] [place] [phone] Feb, Other chronic pain G89.29 [facility] [address] [place] [id number] Feb, Neurogenic bladder N31.9 and Suprapubic catheter Z93.59 [facility] [address] [id number] [address] [place] [id number] Jan, Anxiety F41.9 [facility] [address] [id number] [address] [place] [id number] Dec, Anxiety F41.9 [facility] [address] [id number] [address] [place] [address] Dec, Other chronic pain G89.29 an d Anxiety F41.9 [facility] [address] [id number] [address] [place] [id number] Dec, [facility] [address] [place] [id number] Dec, Neurogenic bladder N31.9 and Suprapubic catheter Z93.59 [facility] [address] [id number] [address] [place] [id number] Nov, Other chronic pain G89.29 an d Anxiety F41.9 [facility] [address] [id number] [address] [place] [phone] Nov, Via [employer] [facility] [address] [place] [id number] Nov, Suprapubic catheter Z93.59 [facility] [address] [id number] [address] [place] [id number] Oct, Other chronic pain G89.29 an d Anxiety F41.9 [facility] [address] [id number] [address] [place] [phone] Oct, [facility] [address] [id number] [address] [place] [id number] Oct, Suprapubic catheter Z93.59 [facility] [address] [id number] [address] [place] [phone] Oct, Via [employer] [address] [place] [id number] Oct, [facility] [address] [id number] [address] [place] [phone] Oct, Anxiety F41.9 [facility] [address] [id number] [address] [place] [id number] Oct, Anxiety F41.9 [facility] [address] [place] [id number] Oct, Other chronic pain G89.29 [facility] [address] [id number] [address] [place] [id number] Sep, Other chronic pain G89.29 [facility] [employer] [address] [place] [id number] Sep, Suprapubic catheter Z93.59 and Cervicalg ia M54.2 [facility] [address] [id number] [address] [place] [phone] Sep, [facility] [address] [id number] [address] [place] [phone] Sep, [facility] [address] [id number] [address] [place] [phone] Sep, Via [employer] [address] [place] [id number] Aug, Cystitis N30.90 [facility] [address] [id number] [address] [place] [phone] Aug, [facility] [address] [id number] [address] [place] [phone] Aug, Other chronic pain G89.29 [facility] [address] [id number] [address] [place] [phone] Aug, Via [employer] [address] [place] [id number] Aug, Encounter for suprapubic catheter care Z 43.5 [facility] [address] [id number] [address] [place] [phone] Jul, Via [employer] [address] [place] [id number] Jul, [facility] [address] [id number] [address] [place] [id number] Jul, Other chronic pain G89.29 [facility] [address] [id number] [address] [place] [id number] Jul, [facility] [address] [id number] [address] [place] [phone] Jul, Via [employer] [address] [place] [id number] Jun, 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 [facility] [address] [id number] [address] [place] [phone] Jun, Other chronic pain G89.29 [facility] [address] [id number] [address] [place] [phone] Jun, Via [employer] [address] [place] [id number] May, Anxiety F41.9 ; Type 2 diabetes mellitus without complication, without long-term current use of insulin E11.9 ; Hypertension I10 ; Low back pain M54.5 ; Paroxysmal atrial fibrillation I48.0 and 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 [facility] [address] [id number] [address] [place] [phone] May, Other chronic pain G89.29 [facility] [employer] [address] [place] [id number] May, Low back pain M54.5 [place] [address] [id number] [address] [place] [phone] May, [place] [address] [id number] [address] [place] [id number] Apr, Other chronic pain G89.29 [place] [address] [id number] [address] [place] [phone] Apr, [facility] [address] [id number] [address] [place] [phone] Apr, Via [employer] [address] [place] [id number] Apr, Closed compression fracture of L3 lumbar vertebra with routine healing, subsequent encounter S32.030D [facility] [employer] [address] [place] [id number] Apr, Low back pain M54.5 [facility] [employer] [address] [place] [id number] Apr, Coccydynia M53.3 [facility] [address] [id number] [address] [place] [phone] March, [facility] [address] [id number] [address] [place] [phone] March, Other chronic pain G89.29 [facility] [address] [id number] [address] [place] [phone] March, [facility] [address] [id number] [address] [place] [phone] March, [facility] [address] [id number] [address] [place] [id number] Feb, [facility] [address] [id number] [address] [place] [address] Feb, Other chronic pain G89.29 [facility] [address] [place] [id number] Feb, Other chronic pain G89.29 and Anxiety F4 1.9 [facility] [address] [id number] [address] [place] [phone] Feb, [facility] [address] [id number] [address] [place] [phone] Jan, [facility] [address] [id number] [address] [place] [phone] Jan, [facility] [address] [id number] [address] [place] [phone] Jan, [facility] [address] [id number] [address] [place] [phone] Jan, [facility] [address] [id number] [address] [place] [id number] Dec, [facility] [address] [place] [id number] Dec, Peripheral vascular disease I73.9 ; 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 ; Other chronic pain G89.29 ; Anxiety F41.9 ; Reactive depression F32.9 ; Insomnia G47.00 and Type 2 diabetes mellitus without complication, without long-term current use of insulin E11.9 [facility] [address] [id number] [address] Nov, [facility] [address] [id number] [place] [id number] Nov, Anxiety F41.9 [facility] [address] [id number] [address] [place] [phone] Nov, [facility] [address] [id number] [place] [id number] Nov, Anxiety F41.9 [facility] [address] [place] [id number] Nov, Status post surgery Z98.890 ; Confused R 41.0 ; Anxiety F41.9 and Other chronic pain G89.29 [facility] [address] [id number] [place] [id number] Nov, Other chronic pain G89.29 [facility] [address] [id number] [address] [place] [phone] Oct, [facility] [address] [id number] [place] [id number] Oct, Other chronic pain G89.29 [facility] [address] [id number] [address] [place] [phone] Oct, Anxiety F41.9 [facility] [address] [id number] [place] [id number] Sep, Other chronic pain G89.29 [facility] [address] [id number] [place] [id number] Sep, [facility] [address] [place] [id number] Aug, Dysuria R30.0 and Anxiety F41.9 [facility] [address] [id number] [address] [place] [id number] Aug, [facility] [address] [id number] [place] [id number] Aug, Other chronic pain G89.29 [facility] [address] [facility] [id number] [address] [place] [id number] Jul, Other chronic pain G89.29 [facility] [address] [id number] [place] [id number] Jun, [facility] [address] [id number] [place] [id number] Jun, Other chronic pain G89.29 [facility] [address] [id number] [address] [place] [id number] Jun, [facility] [address] [id number] [address] [place] [address] May, Other chronic pain G89.29 [facility] [address] [id number] [address] [place] [phone] Apr, Other chronic pain G89.29 [facility] [address] [place] [id number] Apr, Reactive depression F32.9 and Pharyngeal dysphagia R13.13 [facility] [address] [id number] [address] [place] [id number] Apr, Urinary tract infection with out hematuria, site unspecified N39.0 [facility] [address] [id number] [address] [place] [address] March, Other chronic pain G89.29 [facility] [address] [id number] [address] [place] [phone] Feb, Other chronic pain G89.29 [facility] [address] [id number] [address] [place] [phone] Feb, [facility] [address] [id number] [place] [id number] Feb, [facility] [employer] [address] [place] [id number] Feb, Dysuria R30.0 and Ventral hernia without obstruction or gangrene K43.9 [facility] [address] [id number] [address] [place] [address] Jan, Other chronic pain G89.29 [facility] [address] [id number] [id number] Dec, Other chronic pain G89.29 [facility] [address] [id number] [address] [place] [phone] Nov, Other chronic pain G89.29 [facility] [address] [place] [id number] Nov, Lymphadenitis I88.9 [facility] [address] [id number] [address] [place] [id number] Nov, Other chronic pain G89.29 [facility] [address] [id number] [address] [place] [id number] Nov, [facility] [id number] [place] [id number] Nov, Other chronic pain G89.29 [facility] [address] [place] [id number] Oct, Low back pain M54.5 ; Hypertension I10 a nd Type 2 diabetes mellitus without complication, without long-term current use of insulin E11.9 [facility] [address] [id number] [address] [place] [phone] Oct, [facility] [address] [id number] [address] [place] [phone] Oct, [facility] [address] [id number] [address] [place] [phone] Oct, [facility] [address] [id number] [address] [place] [phone] Oct, [facility] [address] [id number] [address] [place] [id number] Sep, [facility] [address] [id number] [address] [place] [phone] Sep, [facility] [address] [id number] [address] [place] [phone] Aug, Other chronic pain G89.29 [facility] [address] [id number] [address] [place] [id number] Jul, [facility] [address] [id number] [address] [place] [phone] Jul, [facility] [address] [id number] [address] [place] [id number] Jul, [facility] [address] [id number] [address] [place] [phone] Jun, [facility] [address] [id number] [address] [place] [phone] Jun, [facility] [address] [place] [id number] Jun, Low back pain M54.5 ; Other chronic pain G89.29 and Coronary artery disease I25.10 [facility] [address] [id number] [address] [place] [phone] Jun, [facility] [address] [id number] [address] [place] [phone] May, [facility] [address] [id number] [address] [place] [phone] May, [facility] [address] [id number] [address] [place] [phone] May, Other chronic pain G89.29 [facility] [address] [id number] [address] [place] [phone] May, [facility] [address] [id number] [address] [place] [phone] Apr, [facility] [address] [id number] [address] [place] [phone] Apr, Acute cystitis without hemat uria N30.00 [facility] [address] [id number] [address] [place] [id number] Apr, Acute cystitis without hemat uria N30.00 ; Coronary artery disease I25.10 ; Low back pain M54.5 and Other chronic pain G89.29 [facility] [address] [id number] [address] [place] [id number] Apr, Other chronic pain G89.29 [facility] [address] [id number] [address] [place] [phone] March, Other chronic pain G89.29 [facility] [address] [address] [id number] [address] [place] [address] Feb, [facility] [address] [id number] [address] [place] [address] Feb, Arthritis M19.90 [facility] [address] [id number] [address] [place] [address] Feb, [facility] [address] [id number] [address] [place] [address] Jan, [facility] [address] [id number] [address] [place] [address] Jan, [facility] [address] [id number] [address] [place] [address] Jan, Other chronic pain G89.29 [facility] [address] [id number] [address] [place] [address] Jan, Hypertension I10 ; Coronary artery disease I25.10 and Insomnia G47.00 [facility] [address] [id number] [address] [place] [address] Jan, [facility] [address] [id number] [address] [place] [address] Dec, Right hip pain M25.551 [facility] [address] [id number] [address] [place] [address] Dec, [facility] [address] [id number] [address] [place] [address] Dec, [facility] [address] [id number] [address] [place] [address] Dec, [facility] [address] [id number] [address] [place] [address] Dec, Other chronic pain G89.29 [facility] [address] [id number] [address] [place] [address] Dec, [facility] [address] [id number] [address] [place] [address] Nov, [facility] [address] [id number] [address] [place] [address] Nov, Other chronic pain G89.29 [facility] [address] [id number] [address] [place] [address] Nov, Right hip pain M25.551 and C oronary artery disease I25.10 [facility] [address] [id number] [address] [place] [address] Nov, Other chronic pain G89.29 [facility] [address] [id number] [address] [place] [address] Oct, [facility] [address] [facility] [id number] [address] [place] [address] Oct, [facility] [address] [facility] [id number] [address] [place] [address] Sep, [facility] [address] [id number] [address] [place] [address] Sep, [facility] [address] [facility] [id number] [address] [place] [address] Aug, [facility] [address] [facility] [id number] [address] [place] [address] Aug, Hypertension I10 ; Coronary artery disease I25.10 and Arthritis M19.90 [facility] [address] [id number] [address] [place] [address] Jun, [facility] [address] [id number] [address] [place] [address], [place] [address] Jun, Essential hypertension, jayson gn 401.1 ; Other chronic pain 338.29 and Chronic airway obstruction, not elsewhere classified 496 [facility] [address] [id number] [address] [place] [address], [place] [address] Jun, [facility] [address] [id number] [address] [place] [address], [place] [address] Jun, [facility] [address] [id number] [address] [place] [address], [place] [address] Jun, [facility] [address] [id number] [address] [place] [address], [place] [address] May, [facility] [address] [id number] [address] [place] [address], [place] [address] May, [facility] [address] [id number] [address] [place] [address], [place] [address] Apr, [facility] [address] [id number] [address] [place] [address] Apr, [facility] [address] [id number] [address] [place] [address], [place] [address] Apr, [facility] [address] [id number] [address] [place] [address] March, [facility] [address] [id number] [address] [place] [address] March, [facility] [address] [id number] [address] [place] [address] March, [facility] [address] [id number] [address] [place] [address] March, [facility] [address] [id number] [address] [place] [address] March, Sialadenitis 527.2 [facility] [address] [id number] [address] [place] [address] Feb, [facility] [address] [id number] [address] [place] [address], [place] [address] Feb, [facility] [address] [id number] [address] [place] [address], [place] [address] Feb, [facility] [address] [id number] [address] [place] [address], [place] [address] Feb, [facility] [address] [id number] [address] [place] [address], [place] [address] Feb, [facility] [address] [id number] [address] [place] [address], [place] [address] Jan, [facility] [address] [id number] [address] [place] [address], [place] [address] Jan, [facility] [address] [id number] [address] [place] [address], [place] [address] Jan, [facility] [address] [id number] [address] [place] [address], [place] [address] Jan, [facility] [address] [id number] [address] [place] [address], [place] [address] Jan, [facility] [address] [id number] [address] [place] [address], [place] [address] Jan, [facility] [address] [id number] [address] [place] [address], [place] [address] Dec, 2014 [facility] [address] [id number] [address] [place] [address], [place] [address] Dec, 2014 [facility] [address] [id number] [address] [place] [address], [place] [address] Dec, 2014 [facility] [address] [id number] [address] [place] [address], [place] [address] Dec, 2014 [facility] [address] [id number] [address] [place] [address], [place] [address] Dec, 2014 [facility] [address] [id number] [address] [place] [address], [place] [address] Dec, [facility] [address] [id number] [address] [place] [address], [place] [address] Nov, [facility] [address] [id number] [address] [place] [address], [place] [address] Nov, [facility] [address] [id number] [address] [place] [address], [place] [address] Nov, [facility] [address] [id number] [address] [place] [address], [place] [address] Nov, [facility] [address] [id number] [address] [place] [address], [place] [address] Nov, [facility] [address] [id number] [address] [place] [address], [place] [address] Nov, [facility] [address] [id number] [address] [place] [address], [place] [address] Nov, [facility] [address] [id number] [address] [place] [address], [place] [address] Nov, [facility] [address] [id number] [address] [place] [address], [place] [address] Nov, [facility] [address] [id number] [address] [place] [address], [place] [address] Nov, [facility] [address] [id number] [address] [place] [address], [place] [address] Nov, [facility] [address] [id number] [address] [place] [address], [place] [address] Nov, [facility] [address] [id number] [address] [place] [address], [place] [address] Nov, [facility] [address] [id number] [address] [place] [address], [place] [address] Nov, [facility] [address] [id number] [address] [place] [address], [place] [address] Oct, [facility] [address] [id number] [address] [place] [address], [place] [address] Oct, [facility] [address] [id number] [address] [place] [address], [place] [address] Oct, [facility] [address] [id number] [address] [place] [address], [place] [address] 18 Oct, 2014 [facility] [address] [id number] [address] [place] [address], [place] [address] Oct, [facility] [address] [id number] [address] [place] [address], [place] [address] Oct, [facility] [address] [id number] [address] [place] [address], [place] [address] Oct, [facility] [address] [id number] [address] [place] [address], [place] [address] Oct, [facility] [address] [id number] [address] [place] [address], [place] [address] Oct, [facility] [address] [id number] [address] [place] [address], [place] [address] Sep, [facility] [address] [id number] [address] [place] [address], [place] [address] Sep, [facility] [address] [id number] [address] [place] [address], [place] [address] Sep, [facility] [address] [id number] [address] [place] [address], [place] [address] Sep, [facility] [address] [id number] [address] [place] [address], [place] [address] Sep, [facility] [address] [id number] [address] [place] [address], [place] [address] Sep, [facility] [address] [id number] [address] [place] [address], [place] [address] Sep, [facility] [address] [id number] [address] [place] [address], [place] [address] Sep, [facility] [address] [id number] [address] [place] [address], [place] [address] Sep, [facility] [address] [id number] [address] [place] [address], [place] [address] Sep, [facility] [address] [id number] [address] [place] [address], [place] [address] Sep, [facility] [address] [id number] [address] [place] [address], [place] [address] Sep, [facility] [address] [id number] [address] [place] [address], [place] [address] Aug, [facility] [address] [id number] [address] [place] [address], [place] [address] Aug, [facility] [address] [id number] [address] [place] [address], [place] [address] Aug, [facility] [address] [id number] [address] [place] [address], [place] [address] Aug, [facility] [address] [id number] [address] [place] [address], [place] [address] Aug, [facility] [address] [id number] [address] [place] [address], [place] [address] Aug, [facility] [address] [id number] [address] [place] [address], [place] [address] Aug, [facility] [address] [id number] [address] [place] [address], [place] [address] Aug, [facility] [address] [id number] [address] [place] [address], [place] [address] 30 Jul, 2014 [facility] [address] [id number] [address] [place] [address], [place] [address] 30 Jul, 2014 [facility] [address] [id number] [address] [place] [address], [place] [address] 30 Jul, 2014 [facility] [address] [id number] [facility] [place] [address] 30 Jul, 2013 [facility] [address] [id number] [facility] [place] [address] 25 Jul, 2013 [facility] [address] [id number] [facility] [place] [address] 25 Jul, 2013 [facility] [address] [id number] [facility] [place] [address] 15 Jul, 2014 [facility] [address] [id number] [address] [place] [address], [place] [address] 15 Jul, 2014 [facility] [address] [id number] [address] [place] [address], [place] [address] Jul, [facility] [address] [id number] [address] [place] [address], [place] [address] Jul, [facility] [address] [id number] [address] [place] [address], [place] [address] Jun, [facility] [address] [id number] [address] [place] [address], [place] [address] Jun, [facility] [address] [id number] [address] [place] [address], [place] [address] Jun, [facility] [address] [id number] [address] [place] [address], [place] [address] Jun, [facility] [address] [id number] [address] [place] [address], [place] [address] Jun, [facility] [address] [id number] [address] [place] [address], [place] [address] Jun, [facility] [address] [id number] [address] [place] [address], [place] [address] Jun, [facility] [address] [id number] [address] [place] [address], [place] [address] Jun, [facility] [address] [id number] [address] [place] [address], [place] [address] Jun, [facility] [address] [id number] [facility] [place] [address] Jun, [facility] [address] [id number] [address] [place] [address], [place] [address] Jun, [facility] [address] [id number] [address] [place] [address], [place] [address] Jun, [facility] [address] [id number] [address] [place] [address], [place] [address] Jun, [facility] [address] [id number] [address] [place] [address], [place] [address] Jun, [facility] [address] [id number] [address] [place] [address], [place] [address] Jun, [facility] [address] [id number] [address] [place] [address], [place] [address] Jun, [facility] [address] [id number] [address] [place] [address], [place] [address] Jun, [facility] [address] [id number] [address] [place] [address], [place] [address] Jun, [facility] [address] [id number] [address] [place] [address], [place] [address] Jun, [facility] [address] [id number] [address] [place] [address], [place] [address] Jun, [facility] [address] [id number] [address] [place] [address], [place] [address] Jun, [facility] [address] [id number] [address] [place] [address], [place] [address] Jun, [facility] [address] [id number] [address] [place] [address], [place] [address] May, [facility] [address] [id number] [address] [place] [address], [place] [address] May, [facility] [address] [id number] [facility] [place] [address] May, [facility] [address] [id number] [facility] [place] [address] May, [facility] [address] [id number] [facility] [place] [address] May, [facility] [address] [id number] [address] [place] [address], [place] [address] May, 2013 [facility] [address] [id number] [address] [place] [address], [place] [address] May, 2013 [facility] [address] [id number] [address] [place] [address], [place] [address] May, [facility] [address] [id number] [address] [place] [address], [place] [address] May, [facility] [address] [id number] [address] [place] [address], [place] [address] May, [facility] [address] [id number] [address] [place] [address], [place] [address] May, [facility] [address] [id number] [address] [place] [address], [place] [address] May, [facility] [address] [id number] [address] [place] [address], [place] [address] May, [facility] [address] [id number] [address] [place] [address], [place] [address] Apr, [facility] [address] [id number] [address] [place] [address], [place] [address] Apr, [facility] [address] [id number] [address] [place] [address], [place] [address] Apr, [facility] [address] [id number] [address] [place] [address], [place] [address] Apr, [facility] [address] [id number] [address] [place] [address], [place] [address] Apr, [facility] [address] [id number] [address] [place] [address], [place] [address] Apr, [facility] [address] [id number] [address] [place] [address], [place] [address] Apr, [facility] [address] [id number] [address] [place] [address], [place] [address] Apr, [facility] [address] [id number] [address] [place] [address], [place] [address] Apr, [facility] [address] [id number] [address] [place] [address], [place] [address] March, [facility] [address] [id number] [address] [place] [address], [place] [address] March, [facility] [address] [id number] [address] [place] [address], [place] [address] March, [facility] [address] [id number] [address] [place] [address], [place] [address] March, [facility] [address] [id number] [address] [place] [address], [place] [address] March, [facility] [address] [id number] [address] [place] [address], [place] [address] March, [facility] [address] [id number] [address] [place] [address], [place] [address] March, [facility] [address] [id number] [address] [place] [address], [place] [address] March, [facility] [address] [id number] [address] [place] [address], [place] [address] March, [facility] [address] [id number] [address] [place] [address], [place] [address] March, [facility] [address] [id number] [address] [place] [address], [place] [address] March, [facility] [address] [id number] [address] [place] [address], [place] [address] March, [facility] [address] [id number] [address] [place] [address], [place] [address] March, [facility] [address] [id number] [address] [place] [address], [place] [address] March, [facility] [address] [id number] [address] [place] [address], [place] [address] March, [facility] [address] [id number] [address] [place] [address], [place] [address] March, [facility] [address] [id number] [address] [place] [address], [place] [address] March, [facility] [address] [id number] [address] [place] [address], [place] [address] March, [facility] [address] [id number] [address] [place] [address], [place] [address] March, [facility] [address] [id number] [address] [place] [address], [place] [address] March, [facility] [address] [id number] [address] [place] [address], [place] [address] Feb, [facility] [address] [id number] [address] [place] [address], [place] [address] Feb, [facility] [address] [id number] [address] [place] [address], [place] [address] Feb, [facility] [address] [id number] [address] [place] [address], [place] [address] Feb, [facility] [address] [id number] [address] [place] [address], [place] [address] Feb, [facility] [address] [id number] [address] [place] [address], [place] [address] Feb, [facility] [address] [id number] [address] [place] [address], [place] [address] Feb, [facility] [address] [id number] [facility] [place] [address] 11 Feb, 2014 [facility] [address] [id number] [facility] [place] [address] Jan, [facility] [address] [id number] [facility] [place] [address] Jan, [facility] [address] [id number] [address] [place] [address], [place] [address] Jan, [facility] [address] [id number] [address] [place] [address], [place] [address] Jan, [facility] [address] [id number] [address] [place] [address], [place] [address] Jan, [facility] [address] [id number] [address] [place] [address], [place] [address] Jan, [facility] [address] [id number] [address] [place] [address], [place] [address] Jan, [facility] [address] [id number] [address] [place] [address], [place] [address] Jan, [facility] [address] [id number] [address] [place] [address], [place] [address] Jan, [facility] [address] [id number] [address] [place] [address], [place] [address] Jan, [facility] [address] [id number] [address] [place] [address], [place] [address] Dec, [facility] [address] [id number] [address] [place] [address], [place] [address] Dec, [facility] [address] [id number] [address] [place] [address], [place] [address] Dec, [facility] [address] [id number] [address] [place] [address], [place] [address] 2013 [facility] [address] [id number] [address] [place] [address], [place] [address] 2013 [facility] [address] [id number] [address] [place] [address], [place] [address] Dec, [facility] [address] [id number] [address] [place] [address], [place] [address] Dec, [facility] [address] [id number] [address] [place] [address], [place] [address] Dec, [facility] [address] [id number] [address] [place] [address], [place] [address] Nov, [facility] [address] [id number] [address] [place] [address], [place] [address] Nov, [facility] [address] [id number] [address] [place] [address], [place] [address] Nov, [facility] [address] [id number] [address] [place] [address], [place] [address] Nov, [facility] [address] [id number] 21 [place] [address], [place] [address] Nov, [facility] [address] [id number] [address] [place] [address], [place] [address] Nov, [facility] [address] [id number] [address] [place] [address], [place] [address] Nov, [facility] [address] [id number] [address] [place] [address], [place] [address] Nov, [facility] [address] [id number] [address] [place] [address], [place] [address] Nov, [facility] [address] [id number] [address] [place] [address], [place] [address] Nov, [facility] [address] [id number] [address] [place] [address], [place] [address] Nov, [facility] [address] [id number] [address] [place] [address], [place] [address] Nov, [facility] [address] [id number] [address] [place] [address], [place] [address] 15 Nov, 2013 [facility] [address] [id number] [address] [place] [address], [place] [address] 30 Oct, 2013 [facility] [address] [id number] [address] [place] [address], [place] [address] Oct, [facility] [address] [id number] [address] [place] [address], [place] [address] Oct, [facility] [address] [id number] [address] [place] [address], [place] [address] Oct, [facility] [address] [id number] [address] [place] [address], [place] [address] Oct, [facility] [address] [id number] [address] [place] [address], [place] [address] Oct, [facility] [address] [id number] [address] [place] [address], [place] [address] Oct, [facility] [address] [id number] [address] [place] [address], [place] [address] 18 Oct, 2013 [facility] [address] [id number] [address] [place] [address], [place] [address] Oct, [facility] [address] [id number] [address] [place] [address], [place] [address] 17 Oct, 2013 [facility] [address] [id number] [address] [place] [address], [place] [address] Oct, [facility] [address] [id number] [address] [place] [address], [place] [address] Oct, [facility] [address] [id number] [address] [place] [address], [place] [address] Oct, [facility] [address] [id number] [address] [place] [address], [place] [address] Oct, [facility] [address] [id number] [address] [place] [address], [place] [address] Sep, [facility] [address] [id number] [address] [place] [address], [place] [address] 14 Sep, 2013 [facility] [address] [id number] [address] [place] [address], [place] [address] Sep, [facility] [address] [id number] [address] [place] [address], [place] [address] Sep, [facility] [address] [id number] [address] [place] [address], [place] [address] Sep, [facility] [address] [id number] [address] [place] [address], [place] [address] Sep, [facility] [address] [id number] [address] [place] [address], [place] [address] Sep, [facility] [address] [id number] [address] [place] [address], [place] [address] Sep, [facility] [address] [id number] [address] [place] [address] Sep, [facility] [address] [id number] [address] [place] [address], [place] [address] Sep, [facility] [address] [id number] [address] [place] [address] Aug, [facility] [address] [id number] [address] [place] [address] Aug, [facility] [address] [id number] [address] [place] [address] Aug, [facility] [address] [id number] [address] [place] [address] Aug, [facility] [address] [id number] [address] [place] [address] Aug, [facility] [address] [id number] [address] [place] [address] Aug, [facility] [address] [id number] [address] [place] [address], [place] [address] 23 Aug, 2012 [facility] [address] [id number] [address] [place] [address], [place] [address] 23 Aug, 2012 [facility] [address] [id number] [address] [place] [address], [place] [address] 22 Aug, 2012 [facility] [address] [id number] [address] [place] [address], [place] [address] 22 Aug, 2012 [facility] [address] [id number] [address] [place] [address], [place] [address] 18 Aug, 2012 [facility] [address] [id number] [address] [place] [address], [place] [address] 18 Aug, 2012 [facility] [address] [id number] [address] [place] [address], [place] [address] 18 Aug, 2012 [facility] [address] [id number] [address] [place] [address], [place] [address] 18 Aug, 2012 [facility] [address] [id number] [address] [place] [address], [place] [address] 17 Aug, 2012 [facility] [address] [id number] [address] [place] [address], [place] [address] 14 Aug, 2013 [facility] [address] [id number] [address] [place] [address], [place] [address] 14 Aug, 2013 [facility] [address] [id number] [address] [place] [address], [place] [address] 01 Aug, 2013 [facility] [address] [id number] [address] [place] [address], [place] [address] 20 Jul, 2012 [facility] [address] [id number] [address] [place] [address], [place] [address] 19 Sep, 2012 [facility] [address] [id number] [address] [place] [address], [place] [address] 18 Jul, 2012 [facility] [address] [id number] [address] [place] [address], [place] [address] 11 Jul2012 [facility] [address] [id number] [facility] [address] Jul, [facility] [address] [id number] [address] [place] [address], [place] [address] Jun, [facility] [address] [id number] [address] [place] [address], [place] [address] Jun, [facility] [address] [id number] [address] [place] [address], [place] [address] Jun, [facility] [address] [id number] [address] [place] [address], [place] [address] Jun, [facility] [address] [id number] [address] [place] [address], [place] [address] Jun, [facility] [address] [id number] [address] [place] [address], [place] [address] Jun, [facility] [address] [id number] [address] [place] [address], [place] [address] Jun, [facility] [address] [id number] [address] [place] [address], [place] [address] Jun, [facility] [address] [id number] [address] [place] [address], [place] [address] Jun, [facility] [address] [id number] [address] [place] [address], [place] [address] Jun, [facility] [address] [id number] [address] [place] [address], [place] [address] May, [facility] [address] [id number] [address] [place] [address], [place] [address] May, [facility] [address] [id number] [address] [place] [address], [place] [address] May, [facility] [address] [id number] [address] [place] [address], [place] [address] May, [facility] [address] [id number] [address] [place] [address], [place] [address] May, [facility] [address] [id number] [address] [place] [address], [place] [address] 16 May, 2013 [facility] [address] [id number] [address] [place] [address], [place] [address] May, [facility] [address] [id number] [address] [place] [address], [place] [address] May, [facility] [address] [id number] [address] [place] [address], [place] [address] May, [facility] [address] [id number] [address] [place] [address], [place] [address] Apr, [facility] [address] [id number] [address] [place] [address], [place] [address] Apr, [facility] [address] [id number] [address] [place] [address], [place] [address] Apr, [facility] [address] [id number] [address] [place] [address], [place] [address] Apr, [facility] [address] [id number] [address] [place] [address], [place] [address] Apr, [facility] [address] [id number] [address] [place] [address], [place] [address] Apr, [facility] [address] [id number] [address] [place] [address], [place] [address] Apr, [facility] [address] [id number] [address] [place] [address], [place] [address] March, [facility] [address] [id number] [address] [place] [address], [place] [address] Feb, [facility] [address] [id number] [address] [place] [address], [place] [address] Feb, [facility] [address] [id number] [address] [place] [address], [place] [address] Feb, [facility] [address] [id number] [address] [place] [address], [place] [address] 28 Jan, 2013 [facility] [address] [id number] [address] [place] [address], [place] [address] 21 Jan, 2013 [facility] [address] [id number] [address] [place] [address], [place] [address] 19 Jan, 2013 [facility] [address] [id number] [address] [place] [address], [place] [address] 14 Jan, 2013 [facility] [address] [id number] [address] [place] [address], [place] [address] 12 Jan, 2013 [facility] [address] [id number] [address] [place] [address], [place] [address] 08 Jan, 2013 [facility] [address] [id number] [address] [place] [address], [place] [address] 07 Jan, 2013 [facility] [address] [id number] [address] [place] [address], [place] [address] 04 Jan, 2013 [facility] [address] [id number] [address] [place] [address], [place] [address] 28 Dec, 2012 [facility] [address] [id number] [address] [place] [address], [place] [address] 25 Dec, 2012 [facility] [address] [id number] [address] [place] [address], [place] [address] 13 Dec, 2012 [facility] [address] [id number] [address] [place] [address], [place] [address] 11 Dec, 2012 [facility] [address] [id number] [address] [place] [address], [place] [address] 07 Dec, 2012 [facility] [address] [id number] [address] [place] [address], [place] [address] 06 Dec, 2012 [facility] [address] [id number] [address] [place] [address], [place] [address] 05 Dec, 2012 [facility] [address] [id number] [address] [place] [address], [place] [address] 31 Nov, 2012 [facility] [address] [id number] [address] [place] [address], [place] [address] 24 Nov, 2012 [facility] [address] [id number] [address] [place] [address], [place] [address] 18 Nov, 2012 [facility] [address] [id number] [address] [place] [address], [place] [address] 15 Nov, 2012 [facility] [address] [id number] [address] [place] [address], [place] [address] Nov, [facility] [address] [id number] [address] [place] [address], [place] [address] Nov, [facility] [address] [id number] [address] [place] [address], [place] [address] Nov, [facility] [address] [id number] [address] [place] [address], [place] [address] Oct, [facility] [address] [id number] [address] [place] [address], [place] [address] 31 Oct, 2012 [facility] [address] [id number] [address] [place] [address], [place] [address] Oct, [facility] [address] [id number] [address] [place] [address], [place] [address] Oct, [facility] [address] [id number] [address] [place] [address], [place] [address] 17 Oct, 2012 [facility] [address] [id number] [address] [place] [address], [place] [address] 17 Oct, 2012 [facility] [address] [id number] [address] [place] [address], [place] [address] 07 Oct, 2012 [facility] [address] [id number] [address] [place] [address], [place] [address] 07 Oct, 2012 [facility] [address] [id number] [address] [place] [address], [place] [address] 05 Oct, 2012 [facility] [address] [id number] [address] [place] [address], [place] [address] Oct, [facility] [address] [id number] [address] [place] [address], [place] [address] Oct, [facility] [address] [id number] [address] [place] [address], [place] [address] Oct, [facility] [address] [id number] [address] [place] [address], [place] [address] Sep, [facility] [address] [id number] [address] [place] [address], [place] [address] Sep, [facility] [address] [id number] [address] [place] [address], [place] [address] Sep, [facility] [address] [id number] [address] [place] [address], [place] [address] Sep, [facility] [address] [id number] [address] [place] [address], [place] [address] Sep, [facility] [address] [id number] [address] [place] [address], [place] [address] Sep, [facility] [address] [id number] [address] [place] [address], [place] [address] Sep, [facility] [address] [id number] [address] [place] [address], [place] [address] Sep, [facility] [address] [id number] [address] [place] [address], [place] [address] Sep, [facility] [address] [id number] [address] [place] [address], [place] [address] Sep, [facility] [address] [id number] [address] [place] [address], [place] [address] Sep, [facility] [address] [id number] [address] [place] [address], [place] [address] Aug, [facility] [address] [id number] [address] [place] [address], [place] [address] Aug, [facility] [address] [id number] [address] [place] [address], [place] [address] Aug, [facility] [address] [id number] [address] [place] [address], [place] [address] Aug, [facility] [address] [id number] [address] [place] [address], [place] [address] Aug, [facility] [address] [id number] [address] [place] [address], [place] [address] Aug, [facility] [address] [id number] [address] [place] [address], [place] [address] Aug, [facility] [address] [id number] [address] [place] [address], [place] [address] Aug, [facility] [address] [id number] [address] [place] [address], [place] [address] Aug, [facility] [address] [id number] [address] [place] [address], [place] [address] Aug, [facility] [address] [id number] [address] [place] [address], [place] [address] Jul, [facility] [address] [id number] [address] [place] [address], [place] [address] 20 Jul, 2012 [facility] [address] [id number] [address] [place] [address], [place] [address] 10 Jul, 2012 [facility] [address] [id number] [address] [place] [address], [place] [address] 06 Jul, 2012 [facility] [address] [id number] [address] [place] [address], [place] [address] 30 Jun, 2012 [facility] [address] [id number] [address] [place] [address], [place] [address] Jun, [facility] [address] [id number] [address] [place] [address], [place] [address] 16 Jun, 2012 [facility] [address] [id number] [address] [place] [address], [place] [address] Jun, [facility] [address] [id number] [address] [place] [address], [place] [address] Jun, [facility] [address] [id number] [address] [place] [address], [place] [address] Jun, [facility] [address] [id number] [address] [place] [address], [place] [address] Jun, [facility] [address] [id number] [address] [place] [address], [place] [address] May, [facility] [address] [id number] [address] [place] [address], [place] [address] May, [facility] [address] [id number] [address] [place] [address], [place] [address] May, [facility] [address] [id number] [address] [place] [address], [place] [address] May, [facility] [address] [id number] [address] [place] [address], [place] [address] May, [facility] [address] [id number] [address] [place] [address], [place] [address] Apr, [facility] [address] [id number] [address] [place] [address], [place] [address] Apr, [facility] [address] [id number] [address] [place] [address], [place] [address] Apr, [facility] [address] [id number] [address] [place] [address], [place] [address] Apr, [facility] [address] [id number] [address] [place] [address], [place] [address] Apr, [facility] [address] [id number] [address] [place] [address], [place] [address] March, [facility] [address] [id number] [address] [place] [address], [place] [address] March, [facility] [address] [id number] [address] [place] [address], [place] [address] March, [facility] [address] [id number] [address] [place] [address], [place] [address] March, [facility] [address] [id number] [address] [place] [address], [place] [address] March, [facility] [address] [id number] [address] [place] [address], [place] [address] March, [facility] [address] [id number] [address] [place] [address], [place] [address] March, [facility] [address] [id number] [address] [place] [address], [place] [address] March, [facility] [address] [id number] [address] [place] [address], [place] [address] March, [facility] [address] [id number] [address] [place] [address], [place] [address] March, [facility] [address] [id number] [address] [place] [address], [place] [address] 30 Feb, 2012 [facility] [address] [id number] [address] [place] [address], [place] [address] Feb, [facility] [address] [id number] [address] [place] [address], [place] [address] Feb, [facility] [address] [id number] [address] [place] [address], [place] [address] Feb, [facility] [address] [id number] [address] [place] [address], [place] [address] Feb, [facility] [address] [id number] [address] [place] [address], [place] [address] Feb, [facility] [address] [id number] [address] [place] [address], [place] [address] Feb, [facility] [address] [id number] [address] [place] [address], [place] [address] Feb, [facility] [address] [id number] [address] [place] [address], [place] [address] Feb, [facility] [address] [id number] [address] [place] [address], [place] [address] 08 Jan, 2012 [facility] [address] [id number] [address] [place] [address], [place] [address] Jan, [facility] [address] [id number] [address] [place] [address], [place] [address] Jan, [facility] [address] [id number] [address] [place] [address], [place] [address] Jan, [facility] [address] [id number] [address] [place] [address], [place] [address] Dec, [facility] [address] [id number] [address] [place] [address], [place] [address] Dec, [facility] [address] [id number] [address] [place] [address], [place] [address] Nov, [facility] [address] [id number] [address] [place] [address], [place] [address] Nov, [facility] [address] [id number] [address] [place] [address], [place] [address] Nov, [facility] [address] [id number] [address] [place] [address], [place] [address] Nov, [facility] [address] [id number] [address] [place] [address], [place] [address] Nov, [facility] [address] [id number] [address] [place] [address], [place] [address] Oct, [facility] [address] [id number] [address] [place] [address], [place] [address] Oct, [facility] [address] [id number] [address] [place] [address], [place] [address] Oct, [facility] [address] [id number] [address] [place] [address] Oct, [facility] [address] [facility] [id number] [address] [place] [address] Oct, [facility] [address] [facility] [id number] [address] [place] [address] Oct, [facility] [address] [facility] [id number] [address] [place] [id number] Oct, [facility] [address] [facility] [id number] [address] [place] [id number] Oct, [facility] [address] [facility] [id number] [address] [place] [id number] Sep, IMMUNIZATIONS No Known Immunizations SOCIAL HISTORY [...] History No Surgical history information Hospitalization History [facility]- Urosepsis, ab d pain and fever, discharged 11/27/2017 11/26/2017 Hospitalization History [facility] [place]- Went Unrepsonsive, Hit head 2017 Hospitalization History [facility] [place]- Back Pain 8
--- OUTSIDE RECORDS SUMMARY | 2020-06-18 14:43 | XMS REPORT ---
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 Role Phone SHARIF JOHNSON Unavailable PROBLEMS Type Condition ICD9-CM Code IVA49-IQ Code Onset Dates Condition S tatus SNOMED Code Problem Hypertension I10 Active 5182408 3 Problem Hyperlipidemia E78.5 Active 13069 004 Problem Coronary artery disease I25.10 Active 91649765 Problem Low back pain M54.5 Active 385986 009 Problem Other chronic pain G89.29 Active 8 4469007 Problem Ventral hernia without obstruction or gangrene K43 .9 Active 021843182 Problem Type 2 diabetes mellitus wit hout complication, without long-term current use of insulin E11.9 Active 772492505 Problem Anxiety F41.9 Active 65338338 Problem Peripheral vascular disease I73.9 Ac tive 047707228 Problem Insomnia G47.00 Active 780849214 Problem Microcytic anemia D50.9 Active 23 9360401 Problem Pharyngeal dysphagia R13.13 Active 13661589136921 Problem Other iron deficiency anemia D50.8 A ctive 98063945 Problem Reactive depression F32.9 Active 41438919 Problem Paroxysmal atrial fibrillation I48.0 Active 601392116 Problem 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 Active 51433565 Problem Encounter for suprapubic catheter care Z43.5 Active 709228506 Problem Neurogenic bladder N31.9 Active 3 [id number] ALLERGIES No Information ENCOUNTERS Encounter Location Date Diagnosis [facility] [address] [facility] [id number] [address] [place] [id number] Jan, Anxiety F41.9 and Strain of right shoulder, subsequent encounter S46.911D [facility] [address] [facility] [id number] [address] [place] [id number] Jan, Via [facility] [address] [place] [id number] Jan, Neurogenic bladder N31.9 [place] [address] [id number] [address] [place] [id number] Dec, [place] [address] [id number] [address] [place] [phone] Dec, [place] [address] [id number] [address] [place] [address] Dec, Anxiety F41.9 and Strain of right shoulder, subsequent encounter S46.911D [place] [address] [id number] [address] [place] [id number] 10 Dec, 2019 Other iron deficiency anemia D50.8 [place] [address] [id number] [address] [place] [id number] 04 Dec, 2019 Via [facility] [address] [place] [id number] Dec, Encounter for suprapubic catheter care Z 43.5 and Microcytic anemia D50.9 [place] [address] [id number] [address] [place] [id number] Dec, [place] [address] [id number] [address] [place] [id number] Nov, Anxiety F41.9 and Strain of right shoulder, subsequent encounter S46.911D [place] [address] [id number] [address] [place] [address] Nov, Hypertension I10 Via [facility] [address] [place] [id number] Nov, Pneumonia of both lungs due to infectiou s organism, unspecified part of lung J18.9 and Suprapubic catheter Z93.59 [place] [address] [id number] [address] [place] [id number] Nov, Hypertension I10 and Reactiv e depression F32.9 [place] [address] [id number] [address] [place] [address] Oct, Strain of right shoulder, scherer bsequent encounter S46.911D and Anxiety F41.9 [facility] [address] [id number] [address] [place] [id number] Oct, Via [facility] [address] [place] [id number] Oct, Suprapubic catheter Z93.59 and Candidias is, intertriginous B37.2 [facility] [address] [id number] [address] [place] [id number] Oct, Suprapubic catheter Z93.59 [facility] [address] [id number] [address] [place] [id number] Oct, Anxiety F41.9 and Strain of right shoulder, subsequent encounter S46.911D [facility] [address] [id number] [address] [place] [id number] Sep, [facility] [address] [id number] [address] [place] [id number] Sep, [facility] [address] [id number] [address] [place] [id number] Sep, Via [facility] [address] [place] [id number] Sep, Suprapubic catheter Z93.59 [facility] [address] [id number] [address] [place] [id number] Sep, Anxiety F41.9 and Strain of right shoulder, subsequent encounter S46.911D [facility] [address] [id number] [address] [place] [id number] Aug, [facility] [address] [id number] [address] [place] [id number] Aug, [facility] [address] [id number] [address] [place] [address] Aug, Anxiety F41.9 and Strain of right shoulder, subsequent encounter S46.911D Via [facility] [address] [place] [id number] Aug, Suprapubic catheter Z93.59 [facility] [address] [id number] [address] [place] [id number] Jul, Strain of right shoulder, scherer bsequent encounter S46.911D and Anxiety F41.9 [facility] [address] [id number] [address] [place] [address] Jul, Anxiety F41.9 [facility] [address] [id number] [address] [place] [id number] Jun, [facility] [address] [id number] [address] [place] [id number] Jun, [facility] [address] [id number] [address] [place] [phone] Jun, [facility] [address] [id number] [address] [place] [address] Jun, Strain of right shoulder, scherer bsequent encounter S46.911D [facility] [address] [id number] [address] [place] [address] Jun, Strain of right shoulder, scherer bsequent encounter S46.911D [facility] [address] [id number] [address] [place] [address] Jun, Anxiety F41.9 Via [facility] [address] [place] [id number] Jun, Neurogenic bladder N31.9 and Anxiety F41 .9 Via [facility] [address] [place] [id number] May, Anxiety F41.9 [facility] [address] [id number] [address] [place] [address] May, Dysuria R30.0 [facility] [address] [id number] [address] [place] [id number] May, Strain of right shoulder, scherer bsequent encounter S46.911D and Anxiety F41.9 [place] [address] [id number] [address] [place] [id number] 27 Apr, 2019 Via [facility] [address] [place] [id number] Apr, Strain of right shoulder, subsequent enc ounter S46.911D [place] [address] [id number] [address] [place] [id number] 14 Apr, 2019 Strain of right shoulder, scherer bsequent encounter S46.911D and Anxiety F41.9 [facility] [address] [place] [id number] 13 Apr, 2019 Type 2 diabetes mellitus without complic ation, without long-term current use of insulin E11.9 and Neurogenic bladder N31.9 Via [facility] [address] [place] [id number] 11 Apr, 2019 Strain of right shoulder, subsequent enc ounter S46.911D ; History of GI bleed Z87.19 ; Neurogenic bladder N31.9 and Reactive depression F32.9 [place] [address] [id number] [address] [place] [id number] 10 Apr, 2019 Acute pain of left shoulder M25.512 [place] [address] [id number] [address] [place] [id number] 07 Apr, 2019 [place] [address] [id number] [address] [place] [id number] Apr, Anxiety F41.9 and 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 [address] [id number] [address] [place] [id number] March, Other chronic pain G89.29 [facility] [address] [id number] [address] [place] [id number] March, Anxiety F41.9 [facility] [address] [id number] [address] [place] [id number] March, [facility] [address] [id number] [address] [place] [id number] Feb, Other chronic pain G89.29 [facility] [address] [id number] [address] [place] [id number] Feb, Anxiety F41.9 [facility] [address] [id number] [address] [place] [id number] Feb, Other chronic pain G89.29 Via [facility] [address] [place] [id number] Feb, Neurogenic bladder N31.9 and Suprapubic catheter Z93.59 [facility] [address] [id number] [address] [place] [address] Jan, Anxiety F41.9 [facility] [address] [id number] [address] [place] [id number] Dec, Anxiety F41.9 [facility] [address] [id number] [address] [place] [id number] Dec, Other chronic pain G89.29 an d Anxiety F41.9 [facility] [address] [id number] [address] [place] [phone] Dec, Via [facility] [address] [place] [id number] Dec, Neurogenic bladder N31.9 and Suprapubic catheter Z93.59 [facility] [address] [id number] [address] [place] [id number] Nov, Other chronic pain G89.29 an d Anxiety F41.9 [facility] [address] [id number] [address] [place] [id number] Nov, Via [facility] [address] [place] [id number] Nov, Suprapubic catheter Z93.59 [facility] [address] [id number] [address] [place] [id number] Oct, Other chronic pain G89.29 an d Anxiety F41.9 [facility] [address] [id number] [address] [place] [id number] Oct, [facility] [address] [id number] [address] [place] [id number] Oct, Suprapubic catheter Z93.59 [facility] [address] [id number] [address] [place] [id number] Oct, Via [facility] [address] [place] [id number] Oct, [facility] [address] [id number] [address] [place] [id number] Oct, Anxiety F41.9 [facility] [address] [id number] [address] [place] [id number] Oct, Anxiety F41.9 [facility] [address] [place] [id number] Oct, Other chronic pain G89.29 [facility] [address] [id number] [address] [place] [address] Sep, Other chronic pain G89.29 [facility] [address] [place] [id number] Sep, Suprapubic catheter Z93.59 and Cervicalg ia M54.2 [facility] [address] [id number] [address] [place] [id number] Sep, [facility] [address] [id number] [address] [place] [id number] Sep, [facility] [address] [id number] [address] [place] [phone] Sep, Via [facility] [address] [place] [id number] Aug, Cystitis N30.90 [facility] [address] [id number] [address] [place] [id number] Aug, [facility] [address] [id number] [address] [place] [id number] Aug, Other chronic pain G89.29 [facility] [address] [id number] [address] [place] [id number] Aug, Via [facility] [address] [place] [id number] Aug, Encounter for suprapubic catheter care Z 43.5 [facility] [address] [id number] [address] [place] [phone] Jul, Via [facility] [address] [place] [id number] Jul, [facility] [address] [id number] [address] [place] [id number] Jul, Other chronic pain G89.29 [facility] [address] [id number] [address] [place] [phone] Jul, [facility] [address] [id number] [address] [place] [id number] Jul, Via [facility] [address] [place] [id number] Jun, 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 [facility] [address] [id number] [address] [place] [id number] Jun, Other chronic pain G89.29 [facility] [address] [id number] [address] [place] [phone] Jun, Via [facility] [address] [place] [id number] May, Anxiety F41.9 ; Type 2 diabetes mellitus without complication, without long-term current use of insulin E11.9 ; Hypertension I10 ; Low back pain M54.5 ; Paroxysmal atrial fibrillation I48.0 and 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 [facility] [address] [id number] [address] [place] [address] May, Other chronic pain G89.29 Via [facility] [address] [place] [id number] May, Low back pain M54.5 [place] [address] [id number] [address] [place] [phone] May, [place] [address] [id number] [address] [place] [id number] Apr, Other chronic pain G89.29 [place] [address] [id number] [address] [place] [phone] Apr, [facility] [address] [id number] [address] [place] [id number] Apr, Via [facility] [address] [place] [id number] Apr, Closed compression fracture of L3 lumbar vertebra with routine healing, subsequent encounter S32.030D [facility] [address] [place] [id number] Apr, Low back pain M54.5 Via [facility] [address] [place] [id number] Apr, Coccydynia M53.3 [facility] [address] [id number] [address] [place] [id number] March, [facility] [address] [id number] [address] [place] [id number] March, Other chronic pain G89.29 [facility] [address] [id number] [address] [place] [id number] March, [facility] [address] [id number] [address] [place] [phone] March, [facility] [address] [id number] [address] [place] [id number] Feb, [facility] [address] [id number] [address] [place] [address] Feb, Other chronic pain G89.29 Via [facility] [address] [place] [id number] Feb, Other chronic pain G89.[address] [facility] [address] [id number] [address] [place] [phone] Feb, [facility] [address] [id number] [address] [place] [phone] Jan, [facility] [address] [id number] [address] [place] [id number] Jan, [facility] [address] [id number] [address] [place] [id number] Jan, [facility] [address] [id number] [address] [place] [address] Jan, 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 [address] [id number] [address] [place] [phone] Nov, [facility] [address] [id number] [place] [id number] Nov, Anxiety F41.9 [facility] [address] [place] [id number] Nov, Status post surgery Z98.890 ; Confused R 41.0 ; Anxiety F41.9 and Other chronic pain G89.29 [facility] [address] [id number] [place] [id number] Nov, Other chronic pain G89.29 [facility] [address] [id number] [address] [place] [address] Oct, [facility] [address] [id number] [place] [id number] Oct, Other chronic pain G89.29 [facility] [address] [id number] [address] [place] [id number] Oct, Anxiety F41.9 [facility] [address] [id number] [place] [id number] Sep, Other chronic pain G89.29 [facility] [address] [id number] [place] [id number] Sep, [facility] [address] [place] [id number] Aug, Dysuria R30.[address] [facility] [address] [id number] [address] [place] [phone] Aug, [facility] [address] [id number] [place] [id number] Aug, Other chronic pain G89.29 [facility] [address] [facility] [id number] [address] [place] [address] Jul, Other chronic pain G89.29 [facility] [address] [id number] [place] [id number] Jun, [facility] [address] [id number] [place] [id number] Jun, Other chronic pain G89.29 [facility] [address] [id number] [address] [place] [phone] Jun, [facility] [address] [id number] [address] [place] [address] May, Other chronic pain G89.29 [facility] [address] [id number] [address] [place] [id number] Apr, Other chronic pain G89.29 [facility] [address] [place] [id number] Apr, Reactive depression F32.9 and Pharyngeal dysphagia R13.13 [facility] [address] [id number] [address] [place] [id number] Apr, Urinary tract infection with out hematuria, site unspecified N39.0 [facility] [address] [id number] [address] [place] [id number] March, Other chronic pain G89.29 [facility] [address] [id number] [address] [place] [id number] Feb, Other chronic pain G89.29 [facility] [address] [id number] [address] [place] [id number] Feb, [facility] [address] [id number] [place] [id number] Feb, [facility] [address] [place] [id number] Feb, Dysuria R30.0 and Ventral hernia without obstruction or gangrene K43.9 [facility] [address] [id number] [address] [place] [id number] Jan, Other chronic pain G89.29 [facility] [address] [id number] [id number] Dec, Other chronic pain G89.29 [facility] [address] [id number] [address] [place] [id number] Nov, Other chronic pain G89.29 [facility] [address] [place] [id number] Nov, Lymphadenitis I88.9 [facility] [address] [id number] [address] [place] [id number] Nov, Other chronic pain G89.29 [facility] [address] [id number] [address] [place] [id number] Nov, [facility] [id number] [place] [id number] Nov, Other chronic pain G89.29 [facility] [address] [place] [id number] Oct, Low back pain M54.5 ; Hypertension I10 a nd Type 2 diabetes mellitus without complication, without long-term current use of insulin E11.9 [facility] [address] [id number] [address] [place] [id number] Oct, [facility] [address] [id number] [address] [place] [phone] Oct, [facility] [address] [id number] [address] [place] [phone] Oct, [facility] [address] [id number] [address] [place] [id number] Oct, [facility] [address] [id number] [address] [place] [id number] Sep, [facility] [address] [id number] [address] [place] [id number] Sep, [facility] [address] [id number] [address] [place] [id number] Aug, Other chronic pain G89.29 [facility] [address] [id number] [address] [place] [id number] Jul, [facility] [address] [id number] [address] [place] [id number] Jul, [facility] [address] [id number] [address] [place] [id number] Jul, [facility] [address] [id number] [address] [place] [id number] Jun, [facility] [address] [id number] [address] [place] [id number] Jun, [facility] [address] [place] [id number] Jun, Low back pain M54.5 ; Other chronic pain G89.29 and Coronary artery disease I25.10 [facility] [address] [id number] [address] [place] [id number] Jun, [facility] [address] [id number] [address] [place] [id number] May, [facility] [address] [id number] [address] [place] [id number] May, [facility] [address] [id number] [address] [place] [id number] May, Other chronic pain G89.29 [facility] [address] [id number] [address] [place] [id number] May, [facility] [address] [id number] [address] [place] [id number] Apr, [facility] [address] [id number] [address] [place] [id number] Apr, Acute cystitis without hemat uria N30.00 [facility] [address] [id number] [address] [place] [id number] Apr, Acute cystitis without hemat uria N30.00 ; Coronary artery disease I25.10 ; Low back pain M54.5 and Other chronic pain G89.29 [facility] [address] [id number] [address] [place] [id number] Apr, Other chronic pain G89.29 [facility] [address] [id number] [address] [place] [id number] March, Other chronic pain G89.29 [facility] [address] [address] [id number] [address] [place] [address] Feb, [facility] [address] [id number] [address] [place] [address] Feb, Arthritis M19.90 [facility] [address] [id number] [address] [place] [id number] Feb, [facility] [address] [id number] [address] [place] [id number] Jan, [facility] [address] [id number] [address] [place] [address] Jan, [facility] [address] [id number] [address] [place] [address] Jan, Other chronic pain G89.29 [facility] [address] [id number] [address] [place] [address] Jan, Hypertension I10 ; Coronary artery disease I25.[address] [facility] [address] [id number] [address] [place] [address] Jan, [facility] [address] [id number] [address] [place] [address] Dec, Right hip pain M25.551 [facility] [address] [id number] [address] [place] [address] Dec, [facility] [address] [id number] [address] [place] [id number] Dec, [facility] [address] [id number] [address] [place] [address] Dec, [facility] [address] [id number] [address] [place] [address] Dec, Other chronic pain G89.29 [facility] [address] [id number] [address] [place] [id number] Dec, [facility] [address] [id number] [address] [place] [address] Nov, [facility] [address] [id number] [address] [place] [address] Nov, Other chronic pain G89.29 [facility] [address] [id number] [address] [place] [id number] Nov, Right hip pain M25.551 and C oronary artery disease I25.10 [facility] [address] [id number] [address] [place] [address] Nov, Other chronic pain G89.29 [facility] [address] [id number] [address] [place] [address] Oct, [facility] [address] [facility] [id number] [address] [place] [id number] Oct, [facility] [address] [facility] [id number] [address] [place] [address] Sep, [facility] [address] [id number] [address] [place] [id number] Sep, [facility] [address] [facility] [id number] [address] [place] [address] Aug, [facility] [address] [facility] [id number] [address] [place] [address] Aug, Hypertension I10 ; Coronary artery disease I25.[address] [facility] [address] [id number] [address] [place] [address] Jun, [facility] [address] [id number] [address] [place] [address], [place] [address] Jun, Essential hypertension, jayson gn 401.1 ; Other chronic pain 338.29 and Chronic airway obstruction, not elsewhere classified [address] [facility] [address] [id number] [address] [place] [address], [place] [address] Jun, [facility] [address] [id number] [address] [place] [address], [place] [address] Jun, [facility] [address] [id number] [address] [place] [address], [place] [address] Jun, [facility] [address] [id number] [address] [place] [address], [place] [address] May, [facility] [address] [id number] [address] [place] [address], [place] [address] May, [facility] [address] [id number] [address] [place] [address], [place] [address] Apr, [facility] [address] [id number] [address] [place] [id number] Apr, [facility] [address] [id number] [address] [place] [address], [place] [address] Apr, [facility] [address] [id number] [address] [place] [address] March, [facility] [address] [id number] [address] [place] [id number] March, [facility] [address] [id number] [address] [place] [id number] March, [facility] [address] [id number] [address] [place] [id number] March, [facility] [address] [id number] [address] [place] [address] March, Sialadenitis 527.2 [facility] [address] [id number] [address] [place] [id number] Feb, [facility] [address] [id number] [address] [place] [address], [place] [address] Feb, [facility] [address] [id number] [address] [place] [address], [place] [address] Feb, [facility] [address] [id number] [address] [place] [address], [place] [address] Feb, [facility] [address] [id number] [address] [place] [address], [place] [address] Feb, [facility] [address] [id number] [address] [place] [address], [place] [address] Jan, [facility] [address] [id number] [address] [place] [address], [place] [address] Jan, [facility] [address] [id number] [address] [place] [address], [place] [address] Jan, [facility] [address] [id number] [address] [place] [address], [place] [address] Jan, [facility] [address] [id number] [address] [place] [address], [place] [address] Jan, [facility] [address] [id number] [address] [place] [address], [place] [address] Jan, [facility] [address] [id number] [address] [place] [address], [place] [address] Dec, 2014 [facility] [address] [id number] [address] [place] [address], [place] [address] Dec, 2014 [facility] [address] [id number] [address] [place] [address], [place] [address] Dec, 2014 [facility] [address] [id number] [address] [place] [address], [place] [address] Dec, 2014 [facility] [address] [id number] [address] [place] [address], [place] [address] Dec, 2014 [facility] [address] [id number] [address] [place] [address], [place] [address] Dec, [facility] [address] [id number] [address] [place] [address], [place] [address] Nov, [facility] [address] [id number] [address] [place] [address], [place] [address] Nov, [facility] [address] [id number] [address] [place] [address], [place] [address] Nov, [facility] [address] [id number] [address] [place] [address], [place] [address] Nov, [facility] [address] [id number] [address] [place] [address], [place] [address] Nov, [facility] [address] [id number] [address] [place] [address], [place] [address] Nov, [facility] [address] [id number] [address] [place] [address], [place] [address] Nov, [facility] [address] [id number] [address] [place] [address], [place] [address] Nov, [facility] [address] [id number] [address] [place] [address], [place] [address] Nov, [facility] [address] [id number] [address] [place] [address], [place] [address] Nov, [facility] [address] [id number] [address] [place] [address], [place] [address] Nov, [facility] [address] [id number] [address] [place] [address], [place] [address] Nov, [facility] [address] [id number] [address] [place] [address], [place] [address] Nov, [facility] [address] [id number] [address] [place] [address], [place] [address] Nov, [facility] [address] [id number] [address] [place] [address], [place] [address] Oct, [facility] [address] [id number] [address] [place] [address], [place] [address] Oct, [facility] [address] [id number] [address] [place] [address], [place] [address] Oct, [facility] [address] [id number] [address] [place] [address], [place] [address] 18 Oct, 2014 [facility] [address] [id number] [address] [place] [address], [place] [address] Oct, [facility] [address] [id number] [address] [place] [address], [place] [address] Oct, [facility] [address] [id number] [address] [place] [address], [place] [address] Oct, [facility] [address] [id number] [address] [place] [address], [place] [address] Oct, [facility] [address] [id number] [address] [place] [address], [place] [address] Oct, [facility] [address] [id number] [address] [place] [address], [place] [address] Sep, [facility] [address] [id number] [address] [place] [address], [place] [address] Sep, [facility] [address] [id number] [address] [place] [address], [place] [address] Sep, [facility] [address] [id number] [address] [place] [address], [place] [address] Sep, [facility] [address] [id number] [address] [place] [address], [place] [address] Sep, [facility] [address] [id number] [address] [place] [address], [place] [address] Sep, [facility] [address] [id number] [address] [place] [address], [place] [address] Sep, [facility] [address] [id number] [address] [place] [address], [place] [address] Sep, [facility] [address] [id number] [address] [place] [address], [place] [address] Sep, [facility] [address] [id number] [address] [place] [address], [place] [address] Sep, [facility] [address] [id number] [address] [place] [address], [place] [address] Sep, [facility] [address] [id number] [address] [place] [address], [place] [address] Sep, [facility] [address] [id number] [address] [place] [address], [place] [address] Aug, [facility] [address] [id number] [address] [place] [address], [place] [address] Aug, [facility] [address] [id number] [address] [place] [address], [place] [address] Aug, [facility] [address] [id number] [address] [place] [address], [place] [address] Aug, [facility] [address] [id number] [address] [place] [address], [place] [address] Aug, [facility] [address] [id number] [address] [place] [address], [place] [address] Aug, [facility] [address] [id number] [address] [place] [address], [place] [address] Aug, [facility] [address] [id number] [address] [place] [address], [place] [address] Aug, [facility] [address] [id number] [address] [place] [address], [place] [address] 30 Jul, 2014 [facility] [address] [id number] [address] [place] [address], [place] [address] 30 Jul, 2014 [facility] [address] [id number] [address] [place] [address], [place] [address] 30 Jul, 2014 [facility] [address] [id number] [facility] [place] [address] 30 Jul, 2013 [facility] [address] [id number] [facility] [place] [address] 25 Jul, 2013 [facility] [address] [id number] [facility] [place] [address] 25 Jul, 2013 [facility] [address] [id number] [facility] [place] [address] 15 Jul, 2014 [facility] [address] [id number] [address] [place] [address], [place] [address] 15 Jul, 2014 [facility] [address] [id number] [address] [place] [address], [place] [address] Jul, [facility] [address] [id number] [address] [place] [address], [place] [address] Jul, [facility] [address] [id number] [address] [place] [address], [place] [address] Jun, [facility] [address] [id number] [address] [place] [address], [place] [address] Jun, [facility] [address] [id number] [address] [place] [address], [place] [address] Jun, [facility] [address] [id number] [address] [place] [address], [place] [address] Jun, [facility] [address] [id number] [address] [place] [address], [place] [address] Jun, [facility] [address] [id number] [address] [place] [address], [place] [address] Jun, [facility] [address] [id number] [address] [place] [address], [place] [address] Jun, [facility] [address] [id number] [address] [place] [address], [place] [address] Jun, [facility] [address] [id number] [address] [place] [address], [place] [address] Jun, [facility] [address] [id number] [facility] [place] [address] Jun, [facility] [address] [id number] [address] [place] [address], [place] [address] Jun, [facility] [address] [id number] [address] [place] [address], [place] [address] Jun, [facility] [address] [id number] [address] [place] [address], [place] [address] Jun, [facility] [address] [id number] [address] [place] [address], [place] [address] Jun, [facility] [address] [id number] [address] [place] [address], [place] [address] Jun, [facility] [address] [id number] [address] [place] [address], [place] [address] Jun, [facility] [address] [id number] [address] [place] [address], [place] [address] Jun, [facility] [address] [id number] [address] [place] [address], [place] [address] Jun, [facility] [address] [id number] [address] [place] [address], [place] [address] Jun, [facility] [address] [id number] [address] [place] [address], [place] [address] Jun, [facility] [address] [id number] [address] [place] [address], [place] [address] Jun, [facility] [address] [id number] [address] [place] [address], [place] [address] Jun, [facility] [address] [id number] [address] [place] [address], [place] [address] May, [facility] [address] [id number] [address] [place] [address], [place] [address] May, [facility] [address] [id number] [facility] [place] [address] May, [facility] [address] [id number] [facility] [place] [address] May, [facility] [address] [id number] [facility] [place] [address] May, [facility] [address] [id number] [address] [place] [address], [place] [address] May, 2013 [facility] [address] [id number] [address] [place] [address], [place] [address] May, 2013 [facility] [address] [id number] [address] [place] [address], [place] [address] May, [facility] [address] [id number] [address] [place] [address], [place] [address] May, [facility] [address] [id number] [address] [place] [address], [place] [address] May, [facility] [address] [id number] [address] [place] [address], [place] [address] May, [facility] [address] [id number] [address] [place] [address], [place] [address] May, [facility] [address] [id number] [address] [place] [address], [place] [address] May, [facility] [address] [id number] [address] [place] [address], [place] [address] Apr, [facility] [address] [id number] [address] [place] [address], [place] [address] Apr, [facility] [address] [id number] [address] [place] [address], [place] [address] Apr, [facility] [address] [id number] [address] [place] [address], [place] [address] Apr, [facility] [address] [id number] [address] [place] [address], [place] [address] Apr, [facility] [address] [id number] [address] [place] [address], [place] [address] Apr, [facility] [address] [id number] [address] [place] [address], [place] [address] Apr, [facility] [address] [id number] [address] [place] [address], [place] [address] Apr, [facility] [address] [id number] [address] [place] [address], [place] [address] Apr, [facility] [address] [id number] [address] [place] [address], [place] [address] March, [facility] [address] [id number] [address] [place] [address], [place] [address] March, [facility] [address] [id number] [address] [place] [address], [place] [address] March, [facility] [address] [id number] [address] [place] [address], [place] [address] March, [facility] [address] [id number] [address] [place] [address], [place] [address] March, [facility] [address] [id number] [address] [place] [address], [place] [address] March, [facility] [address] [id number] [address] [place] [address], [place] [address] March, [facility] [address] [id number] [address] [place] [address], [place] [address] March, [facility] [address] [id number] [address] [place] [address], [place] [address] March, [facility] [address] [id number] [address] [place] [address], [place] [address] March, [facility] [address] [id number] [address] [place] [address], [place] [address] March, [facility] [address] [id number] [address] [place] [address], [place] [address] March, [facility] [address] [id number] [address] [place] [address], [place] [address] March, [facility] [address] [id number] [address] [place] [address], [place] [address] March, [facility] [address] [id number] [address] [place] [address], [place] [address] March, [facility] [address] [id number] [address] [place] [address], [place] [address] March, [facility] [address] [id number] [address] [place] [address], [place] [address] March, [facility] [address] [id number] [address] [place] [address], [place] [address] March, [facility] [address] [id number] [address] [place] [address], [place] [address] March, [facility] [address] [id number] [address] [place] [address], [place] [address] March, [facility] [address] [id number] [address] [place] [address], [place] [address] Feb, [facility] [address] [id number] [address] [place] [address], [place] [address] Feb, [facility] [address] [id number] [address] [place] [address], [place] [address] Feb, [facility] [address] [id number] [address] [place] [address], [place] [address] Feb, [facility] [address] [id number] [address] [place] [address], [place] [address] Feb, [facility] [address] [id number] [address] [place] [address], [place] [address] Feb, [facility] [address] [id number] [address] [place] [address], [place] [address] Feb, [facility] [address] [id number] [facility] [place] [address] 11 Feb, 2014 [facility] [address] [id number] [facility] [place] [address] Jan, [facility] [address] [id number] [facility] [place] [address] Jan, [facility] [address] [id number] [address] [place] [address], [place] [address] Jan, [facility] [address] [id number] [address] [place] [address], [place] [address] Jan, [facility] [address] [id number] [address] [place] [address], [place] [address] Jan, [facility] [address] [id number] [address] [place] [address], [place] [address] Jan, [facility] [address] [id number] [address] [place] [address], [place] [address] Jan, [facility] [address] [id number] [address] [place] [address], [place] [address] Jan, [facility] [address] [id number] [address] [place] [address], [place] [address] Jan, [facility] [address] [id number] [address] [place] [address], [place] [address] Jan, [facility] [address] [id number] [address] [place] [address], [place] [address] Dec, [facility] [address] [id number] [address] [place] [address], [place] [address] Dec, [facility] [address] [id number] [address] [place] [address], [place] [address] Dec, [facility] [address] [id number] [address] [place] [address], [place] [address] 2013 [facility] [address] [id number] [address] [place] [address], [place] [address] 2013 [facility] [address] [id number] [address] [place] [address], [place] [address] Dec, [facility] [address] [id number] [address] [place] [address], [place] [address] Dec, [facility] [address] [id number] [address] [place] [address], [place] [address] Dec, [facility] [address] [id number] [address] [place] [address], [place] [address] Nov, [facility] [address] [id number] [address] [place] [address], [place] [address] Nov, [facility] [address] [id number] [address] [place] [address], [place] [address] Nov, [facility] [address] [id number] [address] [place] [address], [place] [address] Nov, [facility] [address] [id number] [address] [place] [address], [place] [address] Nov, [facility] [address] [id number] [address] [place] [address], [place] [address] Nov, [facility] [address] [id number] [address] [place] [address], [place] [address] Nov, [facility] [address] [id number] [address] [place] [address], [place] [address] Nov, [facility] [address] [id number] [address] [place] [address], [place] [address] Nov, [facility] [address] [id number] [address] [place] [address], [place] [address] Nov, [facility] [address] [id number] [address] [place] [address], [place] [address] Nov, [facility] [address] [id number] [address] [place] [address], [place] [address] Nov, [facility] [address] [id number] [address] [place] [address], [place] [address] 15 Nov, 2013 [facility] [address] [id number] [address] [place] [address], [place] [address] 30 Oct, 2013 [facility] [address] [id number] [address] [place] [address], [place] [address] Oct, [facility] [facility] [address] [id number] [address] [place] [address], [place] [address] Oct, [facility] [address] [id number] [address] [place] [address], [place] [address] Oct, [facility] [address] [id number] [address] [place] [address], [place] [address] Oct, [facility] [address] [id number] [address] [place] [address], [place] [address] Oct, [facility] [address] [id number] [address] [place] [address], [place] [address] Oct, [facility] [address] [id number] [address] [place] [address], [place] [address] 18 Oct, 2013 [facility] [address] [id number] [address] [place] [address], [place] [address] Oct, [facility] [address] [id number] [address] [place] [address], [place] [address] 17 Oct, 2013 [facility] [address] [id number] [address] [place] [address], [place] [address] Oct, [facility] [address] [id number] [address] [place] [address], [place] [address] Oct, [facility] [address] [id number] [address] [place] [address], [place] [address] Oct, [facility] [address] [id number] [address] [place] [address], [place] [address] Oct, [facility] [address] [id number] [address] [place] [address], [place] [address] Sep, [facility] [address] [id number] [address] [place] [address], [place] [address] 14 Sep, 2013 [facility] [address] [id number] [address] [place] [address], [place] [address] Sep, [facility] [address] [id number] [address] [place] [address], [place] [address] Sep, [facility] [address] [id number] [address] [place] [address], [place] [address] Sep, [facility] [address] [id number] [address] [place] [address], [place] [address] Sep, [facility] [address] [id number] [address] [place] [address], [place] [address] Sep, [facility] [address] [id number] [address] [place] [address], [place] [address] Sep, [facility] [address] [id number] [address] [place] [address] Sep, [facility] [address] [id number] [address] [place] [address], [place] [address] Sep, [facility] [address] [id number] [address] [place] [address] Aug, [facility] [address] [id number] [address] [place] [address] Aug, [facility] [address] [id number] [address] [place] [address] Aug, [facility] [address] [id number] [address] [place] [address] Aug, [facility] [address] [id number] [address] [place] [address] Aug, [facility] [address] [id number] [address] [place] [address] Aug, [facility] [address] [id number] [address] [place] [address], [place] [address] 23 Aug, 2012 [facility] [address] [id number] [address] [place] [address], [place] [address] 23 Aug, 2012 [facility] [address] [id number] [address] [place] [address], [place] [address] 22 Aug, 2012 [facility] [address] [id number] [address] [place] [address], [place] [address] 22 Aug, 2012 [facility] [address] [id number] [address] [place] [address], [place] [address] 18 Aug, 2012 [facility] [address] [id number] [address] [place] [address], [place] [address] 18 Aug, 2012 [facility] [address] [id number] [address] [place] [address], [place] [address] 18 Aug, 2012 [facility] [address] [id number] [address] [place] [address], [place] [address] 18 Aug, 2012 [facility] [address] [id number] [address] [place] [address], [place] [address] 17 Aug, 2012 [facility] [address] [id number] [address] [place] [address], [place] [address] 14 Aug, 2013 [facility] [address] [id number] [address] [place] [address], [place] [address] 14 Aug, 2013 [facility] [address] [id number] [address] [place] [address], [place] [address] 01 Aug, 2013 [facility] [address] [id number] [address] [place] [address], [place] [address] 20 Jul, 2012 [facility] [address] [id number] [address] [place] [address], [place] [address] 19 Sep, 2012 [facility] [address] [id number] [address] [place] [address], [place] [address] 18 Jul, 2012 [facility] [address] [id number] [address] [place] [address], [place] [address] 11 Jul2012 [facility] [address] [id number] [facility] [place] [address] Jul, [facility] [address] [id number] [address] [place] [address], [place] [address] Jun, [facility] [address] [id number] [address] [place] [address], [place] [address] Jun, [facility] [address] [id number] [address] [place] [address], [place] [address] Jun, [facility] [address] [id number] [address] [place] [address], [place] [address] Jun, [facility] [address] [id number] [address] [place] [address], [place] [address] Jun, [facility] [address] [id number] [address] [place] [address], [place] [address] Jun, [facility] [address] [id number] [address] [place] [address], [place] [address] Jun, [facility] [address] [id number] [address] [place] [address], [place] [address] Jun, [facility] [address] [id number] [address] [place] [address], [place] [address] Jun, [facility] [address] [id number] [address] [place] [address], [place] [address] Jun, [facility] [address] [id number] [address] [place] [address], [place] [address] May, [facility] [address] [id number] [address] [place] [address], [place] [address] May, [facility] [address] [id number] [address] [place] [address], [place] [address] May, [facility] [address] [id number] [address] [place] [address], [place] [address] May, [facility] [address] [id number] [address] [place] [address], [place] [address] May, [facility] [address] [id number] [address] [place] [address], [place] [address] 16 May, 2013 [facility] [address] [id number] [address] [place] [address], [place] [address] May, [facility] [address] [id number] [address] [place] [address], [place] [address] May, [facility] [address] [id number] [address] [place] [address], [place] [address] May, [facility] [address] [id number] [address] [place] [address], [place] [address] Apr, [facility] [address] [id number] [address] [place] [address], [place] [address] Apr, [facility] [address] [id number] [address] [place] [address], [place] [address] Apr, [facility] [address] [id number] [address] [place] [address], [place] [address] Apr, [facility] [address] [id number] [address] [place] [address], [place] [address] Apr, [facility] [address] [id number] [address] [place] [address], [place] [address] Apr, [facility] [address] [id number] [address] [place] [address], [place] [address] Apr, [facility] [address] [id number] [address] [place] [address], [place] [address] March, [facility] [address] [id number] [address] [place] [address], [place] [address] Feb, [facility] [address] [id number] [address] [place] [address], [place] [address] Feb, [facility] [address] [id number] [address] [place] [address], [place] [address] Feb, [facility] [address] [id number] [address] [place] [address], [place] [address] 28 Jan, 2013 [facility] [address] [id number] [address] [place] [address], [place] [address] 21 Jan, 2013 [facility] [address] [id number] [address] [place] [address], [place] [address] 19 Jan, 2013 [facility] [address] [id number] [address] [place] [address], [place] [address] 14 Jan, 2013 [facility] [address] [id number] [address] [place] [address], [place] [address] 12 Jan, 2013 [facility] [address] [id number] [address] [place] [address], [place] [address] 08 Jan, 2013 [facility] [address] [id number] [address] [place] [address], [place] [address] 07 Jan, 2013 [facility] [address] [id number] [address] [place] [address], [place] [address] 04 Jan, 2013 [facility] [address] [id number] [address] [place] [address], [place] [address] 28 Dec, 2012 [facility] [address] [id number] [address] [place] [address], [place] [address] 25 Dec, 2012 [facility] [address] [id number] [address] [place] [address], [place] [address] 13 Dec, 2012 [facility] [address] [id number] [address] [place] [address], [place] [address] 11 Dec, 2012 [facility] [address] [id number] [address] [place] [address], [place] [address] 07 Dec, 2012 [facility] [address] [id number] [address] [place] [address], [place] [address] 06 Dec, 2012 [facility] [address] [id number] [address] [place] [address], [place] [address] 05 Dec, 2012 [facility] [address] [id number] [address] [place] [address], [place] [address] 31 Nov, 2012 [facility] [address] [id number] [address] [place] [address], [place] [address] 24 Nov, 2012 [facility] [address] [id number] [address] [place] [address], [place] [address] 18 Nov, 2012 [facility] [address] [id number] [address] [place] [address], [place] [address] 15 Nov, 2012 [facility] [address] [id number] [address] [place] [address], [place] [address] Nov, [facility] [address] [id number] [address] [place] [address], [place] [address] Nov, [facility] [address] [id number] [address] [place] [address], [place] [address] Nov, [facility] [address] [id number] [address] [place] [address], [place] [address] Oct, [facility] [address] [id number] [address] [place] [address], [place] [address] 31 Oct, 2012 [facility] [address] [id number] [address] [place] [address], [place] [address] Oct, [facility] [address] [id number] [address] [place] [address], [place] [address] Oct, [facility] [address] [id number] [address] [place] [address], [place] [address] 17 Oct, 2012 [facility] [address] [id number] [address] [place] [address], [place] [address] 17 Oct, 2012 [facility] [address] [id number] [address] [place] [address], [place] [address] 07 Oct, 2012 [facility] [address] [id number] [address] [place] [address], [place] [address] 07 Oct, 2012 [facility] [address] [id number] [address] [place] [address], [place] [address] 05 Oct, 2012 [facility] [address] [id number] [address] [place] [address], [place] [address] Oct, [facility] [address] [id number] [address] [place] [address], [place] [address] Oct, [facility] [address] [id number] [address] [place] [address], [place] [address] Oct, [facility] [address] [id number] [address] [place] [address], [place] [address] Sep, [facility] [address] [id number] [address] [place] [address], [place] [address] Sep, [facility] [address] [id number] [address] [place] [address], [place] [address] Sep, [facility] [address] [id number] [address] [place] [address], [place] [address] Sep, [facility] [address] [id number] [address] [place] [address], [place] [address] Sep, [facility] [address] [id number] [address] [place] [address], [place] [address] Sep, [facility] [address] [id number] [address] [place] [address], [place] [address] Sep, [facility] [address] [id number] [address] [place] [address], [place] [address] Sep, [facility] [address] [id number] [address] [place] [address], [place] [address] Sep, [facility] [address] [id number] [address] [place] [address], [place] [address] Sep, [facility] [address] [id number] [address] [place] [address], [place] [address] Sep, [facility] [address] [id number] [address] [place] [address], [place] [address] Aug, [facility] [address] [id number] [address] [place] [address], [place] [address] Aug, [facility] [address] [id number] [address] [place] [address], [place] [address] Aug, [facility] [address] [id number] [address] [place] [address], [place] [address] Aug, [facility] [address] [id number] [address] [place] [address], [place] [address] Aug, [facility] [address] [id number] [address] [place] [address], [place] [address] Aug, [facility] [address] [id number] [address] [place] [address], [place] [address] Aug, [facility] [address] [id number] [address] [place] [address], [place] [address] Aug, [facility] [address] [id number] [address] [place] [address], [place] [address] Aug, [facility] [address] [id number] [address] [place] [address], [place] [address] Aug, [facility] [address] [id number] [address] [place] [address], [place] [address] Jul, [facility] [address] [id number] [address] [place] [address], [place] [address] 20 Jul, 2012 [facility] [address] [id number] [address] [place] [address], [place] [address] 10 Jul, 2012 [facility] [address] [id number] [address] [place] [address], [place] [address] 06 Jul, 2012 [facility] [address] [id number] [address] [place] [address], [place] [address] 30 Jun, 2012 [facility] [address] [id number] [address] [place] [address], [place] [address] Jun, [facility] [address] [id number] [address] [place] [address], [place] [address] 16 Jun, 2012 [facility] [address] [id number] [address] [place] [address], [place] [address] Jun, [facility] [address] [id number] [address] [place] [address], [place] [address] Jun, [facility] [address] [id number] [address] [place] [address], [place] [address] Jun, [facility] [address] [id number] [address] [place] [address], [place] [address] Jun, [facility] [address] [id number] [address] [place] [address], [place] [address] May, [facility] [address] [id number] [address] [place] [address], [place] [address] May, [facility] [address] [id number] [address] [place] [address], [place] [address] May, [facility] [address] [id number] [address] [place] [address], [place] [address] May, [facility] [address] [id number] [address] [place] [address], [place] [address] May, [facility] [address] [id number] [address] [place] [address], [place] [address] Apr, [facility] [address] [id number] [address] [place] [address], [place] [address] Apr, [facility] [address] [id number] [address] [place] [address], [place] [address] Apr, [facility] [address] [id number] [address] [place] [address], [place] [address] Apr, [facility] [address] [id number] [address] [place] [address], [place] [address] Apr, [facility] [address] [id number] [address] [place] [address], [place] [address] March, [facility] [address] [id number] [address] [place] [address], [place] [address] March, [facility] [address] [id number] [address] [place] [address], [place] [address] March, [facility] [address] [id number] [address] [place] [address], [place] [address] March, [facility] [address] [id number] [address] [place] [address], [place] [address] March, [facility] [address] [id number] [address] [place] [address], [place] [address] March, [facility] [address] [id number] [address] [place] [address], [place] [address] March, [facility] [address] [id number] [address] [place] [address], [place] [address] March, [facility] [address] [id number] [address] [place] [address], [place] [address] March, [facility] [address] [id number] [address] [place] [address], [place] [address] March, [facility] [address] [id number] [address] [place] [address], [place] [id number] 30 Feb, 2012 [facility] [address] [id number] [address] [place] [address], [place] [address] Feb, [facility] [address] [id number] [address] [place] [address], [place] [id number] Feb, [facility] [address] [id number] [address] [place] [address], [place] [address] Feb, [facility] [address] [id number] [address] [place] [address], [place] [phone] Feb, [facility] [address] [id number] [address] [place] [address], [place] [id number] Feb, [facility] [address] [id number] [address] [place] [address], [place] [address] Feb, [facility] [address] [id number] [address] [place] [address], [place] [phone] Feb, [facility] [address] [id number] [address] [place] [address], [place] [id number] Feb, [facility] [address] [id number] [address] [place] [address], [place] [phone] 08 Jan, 2012 [facility] [address] [id number] [address] [place] [address], [place] [address] Jan, [facility] [address] [id number] [address] [place] [address], [place] [address] Jan, [facility] [address] [id number] [address] [place] [address], [place] [address] Jan, [facility] [address] [id number] [address] [place] [address], [place] [phone] Dec, [facility] [address] [id number] [address] [place] [address], [place] [phone] Dec, [facility] [address] [id number] [address] [place] [address], [place] [address] Nov, [facility] [address] [id number] [address] [place] [address], [place] [address] Nov, [facility] [address] [id number] [address] [place] [address], [place] [address] Nov, [facility] [address] [id number] [address] [place] [address], [place] [phone] Nov, [facility] [address] [id number] [address] [place] [address], [place] [address] Nov, [facility] [address] [id number] [address] [place] [address], [place] [address] Oct, [facility] [address] [id number] [address] [place] [address], [place] [phone] Oct, [facility] [address] [id number] [address] [place] [address], [place] [address] Oct, [facility] [address] [id number] [address] [place] [phone] Oct, [facility] [address] [facility] [id number] [address] [place] [phone] Oct, [facility] [address] [facility] [id number] [address] [place] [id number] Oct, [facility] [address] [facility] [id number] [address] [place] [phone] Oct, [facility] [address] [facility] [id number] [address] [place] [phone] Oct, [facility] [address] [facility] [id number] [address] [place] [phone] Sep, IMMUNIZATIONS No Known Immunizations SOCIAL HISTORY [...] No Surgical history information Hospitalization History [facility]- Urosepsis, ab d pain and fever, discharged 11/27/2017 11/26/2017 Hospitalization History [facility]- Went Unrepsonsive, Hit head 2017 Hospitalization History [facility]- Back Pain 8
--- OUTSIDE RECORDS SUMMARY | 2020-06-18 14:43 | XMS REPORT ---
Author Author Sanjuanita Abdul Doctor Organization [facility] Address Unknown Phone Unavailable Care Team Providers Care Short Haul Driver Name Role Phone Migration, Doctor Unavailable Unavailable PROBLEMS Type Condition ICD9-CM Code YOM61-ML Code Onset Dates Condition S tatus SNOMED Code Problem Hypertension I10 Active 8398671 3 Problem Hyperlipidemia E78.5 Active 91398 004 Problem Coronary artery disease I25.10 Active 56976914 Problem Low back pain M54.5 Active 385142 009 Problem Other chronic pain G89.29 Active 8 3889191 Problem Ventral hernia without obstruction or gangrene K43 .9 Active 982430051 Problem Type 2 diabetes mellitus wit hout complication, without long-term current use of insulin E11.9 Active 720273088 Problem Anxiety F41.9 Active 46677880 Problem Peripheral vascular disease I73.9 Ac tive 499618977 Problem Insomnia G47.00 Active 091362748 Problem Microcytic anemia D50.9 Active 23 4662757 Problem Pharyngeal dysphagia R13.13 Active 11855324282128 Problem Other iron deficiency anemia D50.8 A ctive 82772856 Problem Reactive depression F32.9 Active 63333042 Problem Paroxysmal atrial fibrillation I48.0 Active 818538047 Problem 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 Active 79355312 Problem Encounter for suprapubic catheter care Z43.5 Active 657011161 Problem Neurogenic bladder N31.9 Active 3 88346305 ALLERGIES No Information ENCOUNTERS Encounter Location Date Diagnosis [facility] [address] [facility] [id number] [address] [place] [address] Jan, Anxiety F41.9 and Strain of right shoulder, subsequent encounter S46.911D [facility] [address] [facility] [id number] [address] [place] [phone] Jan, [facility] [address] [place] [id number] Jan, Neurogenic bladder N31.9 [facility] [address] [facility] [id number] [address] [place] [address] Dec, [facility] [address] [id number] [address] [place] [address] Dec, [facility] [place] [address] [id number] [address] [place] [address] Dec, Anxiety F41.9 and Strain of right shoulder, subsequent encounter S46.911D [facility] [address] [id number] [address] [place] [phone] 10 Dec, 2019 Other iron deficiency anemia D50.8 [facility] [address] [id number] [address] [place] [phone] 04 Dec, 2019 [facility] [address] [place] [id number] Dec, Encounter for suprapubic catheter care Z 43.5 and Microcytic anemia D50.9 [facility] [place] [address] [id number] [address] [place] [address] Dec, [facility] [address] [id number] [address] [place] [phone] Nov, Anxiety F41.9 and Strain of right shoulder, subsequent encounter S46.911D [facility] [address] [id number] [address] [place] [address] Nov, Hypertension I10 Via [facility] [address] [place] [id number] Nov, Pneumonia of both lungs due to infectiou s organism, unspecified part of lung J18.9 and Suprapubic catheter Z93.59 [place] [address] [id number] [address] [place] [address] Nov, Hypertension I10 and Reactiv e depression F32.9 [facility] [address] [id number] [address] [place] [address] Oct, Strain of right shoulder, scherer bsequent encounter S46.911D and Anxiety F41.9 [facility] [address] [id number] [address] [place] [phone] 16 Oct, 2019 Via [facility] [address] [place] [id number] Oct, Suprapubic catheter Z93.59 and Candidias is, intertriginous B37.2 [facility] [address] [id number] [address] [place] [address] Oct, Suprapubic catheter Z93.59 [facility] [address] [id number] [address] [place] [address] Oct, Anxiety F41.9 and Strain of right shoulder, subsequent encounter S46.911D [facility] [address] [id number] [address] [place] [phone] Sep, [facility] [address] [id number] [address] [place] [phone] Sep, [facility] [address] [id number] [address] [place] [phone] Sep, Via [facility] [address] [place] [id number] Sep, Suprapubic catheter Z93.59 [facility] [address] [id number] [address] [place] [address] Sep, Anxiety F41.9 and Strain of right shoulder, subsequent encounter S46.911D [facility] [address] [id number] [address] [place] [phone] Aug, [facility] [address] [id number] [address] [place] [phone] Aug, [facility] [address] [id number] [address] [place] [address] Aug, Anxiety F41.9 and Strain of right shoulder, subsequent encounter S46.911D [facility] [address] [place] [id number] Aug, Suprapubic catheter Z93.59 [facility] [address] [id number] [address] [place] [address] Jul, Strain of right shoulder, scherer bsequent encounter S46.911D and Anxiety F41.9 [facility] [address] [id number] [address] [place] [address] Jul, Anxiety F41.9 [facility] [place] [address] [id number] [address] [place] [phone] Jun, [facility] [address] [id number] [address] [place] [address] Jun, [facility] [place] [address] [id number] [address] [place] [address] Jun, [facility] [address] [id number] [address] [place] [address] Jun, Strain of right shoulder, scherer bsequent encounter S46.911D [facility] [address] [id number] [address] [place] [address] Jun, Strain of right shoulder, scherer bsequent encounter S46.911D [facility] [address] [id number] [address] [place] [address] Jun, Anxiety F41.9 Via [facility] [address] [place] [id number] Jun, Neurogenic bladder N31.9 and Anxiety F41 .9 Via [facility] [address] [place] [id number] May, Anxiety F41.9 [facility] [address] [id number] [address] [place] [address] May, Dysuria R30.0 [facility] [address] [id number] [address] [place] [phone] May, Strain of right shoulder, scherer bsequent encounter S46.911D and Anxiety F41.9 [facility] [address] [id number] [address] [place] [address] 27 Apr, 2019 Via [facility] [address] [place] [id number] 18 Apr, 2019 Strain of right shoulder, subsequent enc ounter S46.911D [facility] [address] [id number] [address] [place] [address] 14 Apr, 2019 Strain of right shoulder, scherer bsequent encounter S46.911D and Anxiety F41.9 Via [facility] [address] [place] [id number] Apr, Type 2 diabetes mellitus without complic ation, without long-term current use of insulin E11.9 and Neurogenic bladder N31.9 Via [facility] [address] [place] [id number] Apr, Strain of right shoulder, subsequent enc ounter S46.911D ; History of GI bleed Z87.19 ; Neurogenic bladder N31.9 and Reactive depression F32.9 [facility] [address] [id number] [address] [place] [address] Apr, Acute pain of left shoulder M25.512 [facility] [address] [id number] [address] [place] [address] Apr, [facility] [address] [id number] [address] [place] [address] Apr, Anxiety F41.9 and 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 [facility] [address] [place] [id number] March, Gastrointestinal hemorrhage associated w ith acute gastritis K29.01 [place] [address] [id number] [address] [place] [address] March, Via [facility] [address] [place] [id number] March, Bronchitis J40 [place] [address] [id number] [address] [place] [address] March, Cough R05 [place] [address] [id number] [address] [place] [address] March, Other chronic pain G89.29 [facility] [address] [id number] [address] [place] [address] March, Anxiety F41.9 [facility] [address] [id number] [address] [place] [address] March, [facility] [address] [id number] [address] [place] [address] Feb, Other chronic pain G89.29 [facility] [address] [id number] [address] [place] [address] Feb, Anxiety F41.9 [facility] [address] [id number] [address] [place] [address] Feb, Other chronic pain G89.29 Via [facility] [address] [place] [id number] Feb, Neurogenic bladder N31.9 and Suprapubic catheter Z93.59 [facility] [address] [id number] [address] [place] [phone] Jan, Anxiety F41.9 [facility] [address] [id number] [address] [place] [address] Dec, Anxiety F41.9 [facility] [address] [id number] [address] [place] [address] Dec, Other chronic pain G89.29 an d Anxiety F41.9 [facility] [address] [id number] [address] [place] [address] Dec, Via [employer] [address] [place] [id number] Dec, Neurogenic bladder N31.9 and Suprapubic catheter Z93.59 [facility] [address] [id number] [address] [place] [address] Nov, Other chronic pain G89.29 an d Anxiety F41.9 [facility] [address] [id number] [address] [place] [address] Nov, Via [facility] [address] [place] [id number] Nov, Suprapubic catheter Z93.59 [facility] [address] [id number] [address] [place] [address] Oct, Other chronic pain G89.29 an d Anxiety F41.9 [facility] [address] [id number] [address] [place] [address] Oct, [facility] [address] [id number] [address] [place] [address] Oct, Suprapubic catheter Z93.59 [facility] [address] [id number] [address] [place] [phone] Oct, Via [facility] [address] [place] [id number] Oct, [facility] [address] [id number] [address] [place] [address] Oct, Anxiety F41.9 [facility] [address] [id number] [address] [place] [phone] Oct, Anxiety F41.9 Via [facility] [address] [place] [id number] Oct, Other chronic pain G89.29 [facility] [address] [id number] [address] [place] [address] Sep, Other chronic pain G89.29 Via [facility] [address] [place] [id number] Sep, Suprapubic catheter Z93.59 and Cervicalg ia M54.2 [facility] [address] [id number] [address] [place] [address] Sep, [facility] [address] [id number] [address] [place] [phone] Sep, [facility] [address] [id number] [address] [place] [address] Sep, Via [facility] [facility] [address] [place] [id number] Aug, Cystitis N30.90 [facility] [address] [id number] [address] [place] [address] Aug, [facility] [address] [id number] [address] [place] [address] Aug, Other chronic pain G89.29 [facility] [address] [id number] [address] [place] [address] Aug, Via [facility] [facility] [address] [place] [id number] Aug, Encounter for suprapubic catheter care Z 43.5 [facility] [address] [id number] [address] [place] [phone] Jul, Via [facility] [address] [place] [id number] Jul, [facility] [address] [id number] [address] [place] [address] Jul, Other chronic pain G89.29 [facility] [address] [id number] [address] [place] [phone] Jul, [facility] [address] [id number] [address] [place] [address] Jul, Via [facility] [address] [place] [id number] Jun, 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 [facility] [address] [id number] [address] [place] [address] Jun, Other chronic pain G89.29 [facility] [address] [id number] [address] [place] [address] Jun, Via [employer] [facility] [address] [place] [id number] May, Anxiety F41.9 ; Type 2 diabetes mellitus without complication, without long-term current use of insulin E11.9 ; Hypertension I10 ; Low back pain M54.5 ; Paroxysmal atrial fibrillation I48.0 and 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 [facility] [address] [id number] [address] [place] [address] May, Other chronic pain G89.29 Via [facility] [employer] [employer] [address] [place] [id number] May, Low back pain M54.5 [facility] [address] [id number] [address] [place] [address] May, [facility] [address] [id number] [address] [place] [address] Apr, Other chronic pain G89.29 [facility] [address] [id number] [address] [place] [address] Apr, [facility] [address] [id number] [address] [place] [address] Apr, Via [employer] [facility] [address] [place] [id number] Apr, Closed compression fracture of L3 lumbar vertebra with routine healing, subsequent encounter S32.030D [facility] [employer] [facility] [employer] [address] [place] [id number] Apr, Low back pain M54.5 Via [facility] [address] [place] [id number] Apr, Coccydynia M53.3 [facility] [address] [id number] [address] [place] [address] March, [facility] [address] [id number] [address] [place] [address] March, Other chronic pain G89.29 [facility] [address] [id number] [address] [place] [address] March, [facility] [address] [id number] [address] [place] [address] March, [facility] [address] [id number] [address] [place] [address] Feb, [facility] [address] [id number] [address] [place] [address] Feb, Other chronic pain G89.29 Via [facility] [address] [place] [id number] Feb, Other chronic pain G89.29 and Anxiety F4 1.9 [facility] [address] [id number] [address] [place] [address] Feb, [facility] [address] [id number] [address] [place] [address] Jan, [facility] [address] [id number] [address] [place] [address] Jan, [facility] [address] [id number] [address] [place] [address] Jan, [facility] [address] [id number] [address] [place] [phone] Jan, [facility] [address] [id number] [address] [place] [address] Dec, Via [facility] [address] [place] [id number] Dec, Peripheral vascular disease I73.9 ; 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 ; Other chronic pain G89.29 ; Anxiety F41.9 ; Reactive depression F32.9 ; Insomnia G47.00 and Type 2 diabetes mellitus without complication, without long-term current use of insulin E11.9 [facility] [place] [address] [id number] [place] [address] Nov, [facility] [address] [id number] [place] [id number] Nov, Anxiety F41.9 [facility] [address] [id number] [address] [place] [address] Nov, [facility] [address] [id number] [place] [id number] Nov, Anxiety F41.9 Via [facility] [address] [place] [id number] Nov, Status post surgery Z98.890 ; Confused R 41.0 ; Anxiety F41.9 and Other chronic pain G89.29 [facility] [address] [id number] [place] [id number] Nov, Other chronic pain G89.29 [facility] [address] [facility] [id number] [address] [place] [address] Oct, [facility] [address] [id number] [place] [id number] Oct, Other chronic pain G89.29 [facility] [address] [facility] [id number] [address] [place] [address] Oct, Anxiety F41.9 [facility] [address] [id number] [place] [id number] Sep, Other chronic pain G89.29 [facility] [address] [id number] [place] [id number] Sep, [facility] [facility] [address] [place] [id number] Aug, Dysuria R30.0 and Anxiety F41.9 [facility] [address] [id number] [address] [place] [address] Aug, [facility] [address] [id number] [place] [id number] Aug, Other chronic pain G89.29 [facility] [address] [facility] [id number] [address] [place] [address] Jul, Other chronic pain G89.29 [facility] [address] [id number] [place] [id number] Jun, [facility] [address] [id number] [place] [id number] Jun, Other chronic pain G89.29 [facility] [address] [id number] [address] [place] [address] Jun, [facility] [address] [facility] [id number] [address] [place] [address] May, Other chronic pain G89.29 [facility] [address] [facility] [id number] [address] [place] [address] Apr, Other chronic pain G89.29 Via [facility] [address] [place] [id number] Apr, Reactive depression F32.9 and Pharyngeal dysphagia R13.13 [facility] [address] [facility] [id number] [address] [place] [address] Apr, Urinary tract infection with out hematuria, site unspecified N39.0 [facility] [address] [facility] [id number] [address] [place] [address] March, Other chronic pain G89.29 [facility] [address] [facility] [id number] [address] [place] [address] Feb, Other chronic pain G89.29 [facility] [address] [facility] [id number] [address] [place] [phone] Feb, [facility] [address] [id number] [place] [id number] Feb, [facility] [address] [place] [id number] Feb, Dysuria R30.0 and Ventral hernia without obstruction or gangrene K43.9 [facility] [address] [id number] [address] [place] [phone] Jan, Other chronic pain G89.29 [facility] [address] [id number] [place] [id number] Dec, Other chronic pain G89.29 [facility] [address] [id number] [address] [place] [address] Nov, Other chronic pain G89.29 [facility] [address] [place] [id number] Nov, Lymphadenitis I88.9 [facility] [address] [id number] [address] [place] [id number] Nov, Other chronic pain G89.29 [facility] [address] [id number] [address] [place] [id number] Nov, [facility] [address] [id number] [place] [id number] Nov, Other chronic pain G89.29 [facility] [address] [place] [id number] Oct, Low back pain M54.5 ; Hypertension I10 a nd Type 2 diabetes mellitus without complication, without long-term current use of insulin E11.9 [facility] [address] [id number] [place] [id number] Oct, [facility] [address] [id number] [address] [place] [id number] Oct, [facility] [address] [id number] [address] [place] [phone] Oct, [facility] [address] [id number] [address] [place] [phone] Oct, [facility] [address] [id number] [address] [place] [id number] Sep, [facility] [address] [id number] [address] [place] [id number] Sep, [facility] [address] [facility] [id number] [place] [phone] Aug, Other chronic pain G89.29 [facility] [address] [id number] [address] [place] [phone] Jul, [facility] [address] [id number] [address] [place] [phone] Jul, [facility] [address] [id number] [address] [place] [phone] Jul, [facility] [address] [id number] [address] [place] [phone] Jun, [facility] [address] [id number] [address] [place] [phone] Jun, [facility] [address] [place] [id number] Jun, Low back pain M54.5 ; Other chronic pain G89.29 and Coronary artery disease I25.10 [facility] [address] [id number] [address] [place] [id number] Jun, [facility] [address] [id number] [address] [place] [phone] May, [facility] [address] [id number] [address] [place] [phone] May, [facility] [address] [id number] [address] [place] [address] May, Other chronic pain G89.29 [facility] [address] [id number] [address] [place] [phone] May, [facility] [address] [id number] [address] [place] [phone] Apr, [facility] [address] [id number] [address] [place] [id number] 17 Apr, 2016 Acute cystitis without hemat uria N30.00 [facility] [address] [id number] [address] [place] [phone] 16 Apr, 2016 Acute cystitis without hemat uria N30.00 ; Coronary artery disease I25.10 ; Low back pain M54.5 and Other chronic pain G89.29 [facility] [address] [id number] [address] [place] [phone] 13 Apr, 2016 Other chronic pain G89.29 [facility] [address] [id number] [address] [place] [phone] March, Other chronic pain G89.29 [facility] [address] [id number] [address] [place] [phone] 18 Feb, 2016 [facility] [address] [id number] [address] [place] [phone] 15 Feb, 2016 Arthritis M19.90 [facility] [address] [id number] [address] [place] [phone] Feb, [facility] [address] [id number] [address] [place] [phone] 30 Jan, 2016 [facility] [address] [id number] [address] [place] [phone] Jan, [facility] [address] [id number] [address] [place] [phone] Jan, Other chronic pain G89.29 [facility] [address] [id number] [address] [place] [phone] Jan, Hypertension I10 ; Coronary artery disease I25.10 and Insomnia G47.00 [facility] [address] [facility] [id number] [address] [place] [phone] Jan, [facility] [address] [id number] [address] [place] [address] Dec, Right hip pain M25.551 [facility] [address] [id number] [address] [place] [phone] Dec, [facility] [address] [facility] [id number] [address] [place] [phone] Dec, [facility] [address] [facility] [id number] [address] [place] [phone] Dec, [facility] [address] [id number] [address] [place] [phone] Dec, Other chronic pain G89.29 [facility] [address] [id number] [address] [place] [phone] Dec, [facility] [address] [id number] [address] [place] [address] Nov, [facility] [address] [id number] [address] [place] [phone] Nov, Other chronic pain G89.29 [facility] [address] [id number] [address] [place] [address] Nov, Right hip pain M25.551 and C oronary artery disease I25.10 [facility] [address] [id number] [address] [place] [phone] Nov, Other chronic pain G89.29 [facility] [address] [id number] [address] [place] [phone] Oct, [facility] [address] [id number] [address] [place] [phone] Oct, [facility] [address] [id number] [address] [place] [phone] Sep, [facility] [address] [id number] [address] [place] [phone] Sep, [facility] [address] [id number] [address] [place] [phone] Aug, [facility] [address] [id number] [address] [place] [phone] Aug, Hypertension I10 ; Coronary artery disease I25.10 and Arthritis M19.90 [facility] [address] [id number] [address] [place] [phone] Jun, [facility] [address] [id number] [address] [place] [id number] Jun, Essential hypertension, jayson gn 401.1 ; Other chronic pain 338.29 and Chronic airway obstruction, not elsewhere classified 496 [facility] [address] [id number] [address] [place] [address], [place] [address] Jun, [facility] [address] [id number] [address] [place] [address], [place] [address] Jun, [facility] [address] [id number] [address] [place] [address], [place] [address] Jun, [facility] [address] [id number] [address] [place] [address], [place] [address] May, [facility] [address] [id number] [address] [place] [address], [place] [address] May, [facility] [address] [id number] [address] [place] [address], [place] [address] Apr, [facility] [address] [id number] [address] [place] [address], [place] [address] Apr, [facility] [address] [id number] [address] [place] [address], [place] [address] Apr, [facility] [address] [id number] [address] [place] [address], [place] [address] March, [facility] [address] [id number] [address] [place] [phone] March, [facility] [address] [id number] [address] [place] [address], [place] [address] March, [facility] [address] [id number] [address] [place] [phone] March, [facility] [address] [id number] [address] [place] [id number] March, Sialadenitis 527.2 [facility] [address] [id number] [address] [place] [id number] Feb, [facility] [address] [id number] [address] [place] [phone] Feb, [facility] [address] [id number] [address] [place] [address], [place] [address] 29 Feb, 2015 [facility] [address] [id number] [address] [place] [address], [place] [address] 14 Feb, 2015 [facility] [address] [id number] [address] [place] [address], [place] [address] Feb, [facility] [address] [id number] [address] [place] [address], [place] [address] Jan, [facility] [address] [id number] [address] [place] [address], [place] [address] Jan, [facility] [address] [id number] [address] [place] [address], [place] [address] Jan, [facility] [address] [id number] [address] [place] [address], [place] [address] Jan, [facility] [address] [id number] [address] [place] [address], [place] [address] Jan, [facility] [address] [id number] [address] [place] [address], [place] [address] Jan, [facility] [address] [id number] [address] [place] [address], [place] [address] Dec, 2014 [facility] [address] [id number] [address] [place] [address], [place] [address] Dec, 2014 [facility] [address] [id number] [address] [place] [address], [place] [address] Dec, 2014 [facility] [address] [id number] [address] [place] [address], [place] [address] Dec, 2014 [facility] [address] [id number] [address] [place] [address], [place] [address] Dec, 2014 [facility] [address] [id number] [address] [place] [address], [place] [address] Dec2014 [facility] [address] [id number] [address] [place] [address], [place] [address] Nov, [facility] [address] [id number] [address] [place] [address], [place] [address] Nov, [facility] [address] [id number] [address] [place] [address], [place] [address] Nov, [facility] [address] [id number] [address] [place] [address], [place] [address] Nov, [facility] [address] [id number] [address] [place] [address], [place] [address] Nov, [facility] [address] [id number] [address] [place] [address], [place] [address] Nov, [facility] [address] [id number] [address] [place] [address], [place] [address] Nov, [facility] [address] [id number] [address] [place] [address], [place] [address] Nov, [facility] [address] [id number] [address] [place] [address], [place] [address] Nov, [facility] [address] [id number] [address] [place] [address], [place] [address] Nov, [facility] [address] [id number] [address] [place] [address], [place] [address] Nov, [facility] [address] [id number] [address] [place] [address], [place] [address] Nov, [facility] [address] [id number] [address] [place] [address], [place] [address] Nov, [facility] [address] [id number] [address] [place] [address], [place] [address] Nov, [facility] [address] [id number] [address] [place] [address], [place] [address] Oct, [facility] [address] [id number] [address] [place] [address], [place] [address] 19 Oct, 2014 [facility] [address] [id number] [address] [place] [address], [place] [address] 19 Oct, 2014 [facility] [address] [id number] [address] [place] [address], [place] [address] 18 Oct, 2014 [facility] [address] [id number] [address] [place] [address], [place] [address] 18 Oct, 2014 [facility] [address] [id number] [address] [place] [address], [place] [address] Oct, [facility] [address] [id number] [address] [place] [address], [place] [address] 17 Oct, 2014 [facility] [address] [id number] [address] [place] [address], [place] [address] Oct, [facility] [address] [id number] [address] [place] [address], [place] [address] Oct, [facility] [address] [id number] [address] [place] [address], [place] [address] Sep, [facility] [address] [id number] [address] [place] [address], [place] [address] Sep, [facility] [address] [id number] [address] [place] [address], [place] [address] Sep, [facility] [address] [id number] [address] [place] [address], [place] [address] Sep, [facility] [address] [id number] [address] [place] [address], [place] [address] Sep, [facility] [address] [id number] [address] [place] [address], [place] [address] Sep, [facility] [address] [id number] [address] [place] [address], [place] [address] Sep, [facility] [address] [id number] [address] [place] [address], [place] [address] Sep, [facility] [address] [id number] [address] [place] [address], [place] [address] Sep, [facility] [address] [id number] [address] [place] [address], [place] [address] Sep, [facility] [address] [id number] [address] [place] [address], [place] [address] Sep, [facility] [address] [id number] [address] [place] [address], [place] [address] Sep, [facility] [address] [id number] [address] [place] [address], [place] [address] Aug, [facility] [address] [id number] [address] [place] [address], [place] [address] Aug, [facility] [address] [id number] [address] [place] [address], [place] [address] Aug, [facility] [address] [id number] [address] [place] [address], [place] [address] Aug, [facility] [address] [id number] [address] [place] [address], [place] [address] Aug, [facility] [address] [id number] [address] [place] [address], [place] [address] Aug, [facility] [address] [id number] [address] [place] [address], [place] [address] Aug, [facility] [address] [id number] [address] [place] [address], [place] [address] Aug, [facility] [address] [id number] [address] [place] [address], [place] [address] 30 Jul, 2014 [facility] [address] [id number] [address] [place] [address], [place] [address] 30 Jul, 2014 [facility] [address] [id number] [address] [place] [address], [place] [address] 30 Jul, 2013 [facility] [address] [id number] [address] [place] [address], [place] [address] 30 Jul, 2014 [facility] [address] [id number] [address] [place] [address], [place] [address] Jul, [facility] [address] [id number] [address] [place] [address], [place] [address] Jul, [facility] [address] [id number] [address] [place] [address], [place] [address] 15 Jul, 2014 [facility] [address] [id number] [address] [place] [address], [place] [address] 15 Jul, 2014 [facility] [address] [id number] [address] [place] [address], [place] [address] Jul, [facility] [address] [id number] [address] [place] [address], [place] [address] Jul, [facility] [address] [id number] [address] [place] [address], [place] [address] Jun, [facility] [address] [id number] [address] [place] [address], [place] [address] Jun, [facility] [address] [id number] [address] [place] [address], [place] [address] Jun, [facility] [address] [id number] [address] [place] [address], [place] [address] Jun, [facility] [address] [id number] [address] [place] [address], [place] [address] Jun, [facility] [address] [id number] [address] [place] [address], [place] [address] Jun, [facility] [address] [id number] [address] [place] [address], [place] [address] Jun, [facility] [address] [id number] [address] [place] [address], [place] [address] Jun, [facility] [address] [id number] [address] [place] [address], [place] [address] Jun, [facility] [address] [id number] [address] [place] [address], [place] [address] Jun, [facility] [address] [id number] [address] [place] [address], [place] [address] Jun, [facility] [address] [id number] [address] [place] [address], [place] [address] Jun, [facility] [address] [id number] [address] [place] [address], [place] [address] Jun, [facility] [address] [id number] [address] [place] [address], [place] [address] Jun, [facility] [address] [id number] [address] [place] [address], [place] [address] Jun, [facility] [address] [id number] [address] [place] [address], [place] [address] Jun, [facility] [address] [id number] [address] [place] [address], [place] [address] Jun, [facility] [address] [id number] [address] [place] [address], [place] [address] Jun, [facility] [address] [id number] [address] [place] [address], [place] [address] Jun, [facility] [address] [id number] [address] [place] [address], [place] [address] Jun, [facility] [address] [id number] [address] [place] [address], [place] [address] Jun, [facility] [address] [id number] [address] [place] [address], [place] [address] Jun, [facility] [address] [id number] [address] [place] [address], [place] [address] May, [facility] [address] [id number] [address] [place] [address], [place] [address] May, [facility] [address] [id number] [address] [place] [address], [place] [address] May, [facility] [address] [id number] [facility] [place] [address] May, 2013 [facility] [address] [id number] [facility] [place] [address] May, [facility] [address] [id number] [facility] [place] [address] May, 2013 [facility] [address] [id number] [facility] [place] [address] May, 2013 [facility] [address] [id number] [facility] [place] [address] May, 2013 [facility] [address] [id number] [facility] [place] [address] May, [facility] [address] [id number] [address] [place] [address], [place] [address] May, [facility] [address] [id number] [address] [place] [address], [place] [address] May, [facility] [address] [id number] [address] [place] [address], [place] [address] May, [facility] [address] [id number] [address] [place] [address], [place] [address] May, [facility] [address] [id number] [address] [place] [address], [place] [address] Apr, [facility] [address] [id number] [address] [place] [address], [place] [address] Apr, [facility] [address] [id number] [address] [place] [address], [place] [address] Apr, [facility] [address] [id number] [address] [place] [address], [place] [address] Apr, [facility] [address] [id number] [address] [place] [address], [place] [address] Apr, [facility] [address] [id number] [address] [place] [address], [place] [address] Apr, [facility] [address] [id number] [facility] [place] [address] Apr, [facility] [address] [id number] [facility] [address] Apr, [facility] [address] [id number] [facility] [address] Apr, [facility] [address] [id number] [address] [place] [address], [place] [address] March, [facility] [address] [id number] [address] [place] [address], [place] [address] March, [facility] [address] [id number] [address] [place] [address], [place] [address] March, [facility] [address] [id number] [address] [place] [address], [place] [address] March, [facility] [address] [id number] [address] [place] [address], [place] [address] March, [facility] [address] [id number] [address] [place] [address], [place] [address] March, [facility] [address] [id number] [address] [place] [address], [place] [address] March, [facility] [address] [id number] [address] [place] [address], [place] [address] March, [facility] [address] [id number] [address] [place] [address], [place] [address] March, [facility] [address] [id number] [address] [place] [address], [place] [address] March, [facility] [address] [id number] [address] [place] [address], [place] [address] March, [facility] [address] [id number] [address] [place] [address], [place] [address] March, [facility] [address] [id number] [address] [place] [address], [place] [address] March, [facility] [address] [id number] [address] [place] [address], [place] [address] March, [facility] [address] [id number] [address] [place] [address], [place] [address] March, [facility] [address] [id number] [address] [place] [address], [place] [address] March, [facility] [address] [id number] [address] [place] [address], [place] [address] March, [facility] [address] [id number] [address] [place] [address], [place] [address] March, [facility] [address] [id number] [address] [place] [address], [place] [address] March, [facility] [address] [id number] [address] [place] [address], [place] [address] March, [facility] [address] [id number] [address] [place] [address], [place] [address] Feb, [facility] [address] [id number] [address] [place] [address], [place] [address] Feb, [facility] [address] [id number] [address] [place] [address], [place] [address] Feb, [facility] [address] [id number] [address] [place] [address], [place] [address] Feb, [facility] [address] [id number] [address] [place] [address], [place] [address] Feb, [facility] [address] [id number] [address] [place] [address], [place] [address] Feb, [facility] [address] [id number] [address] [place] [address], [place] [address] Feb, [facility] [address] [id number] [address] [place] [address], [place] [address] Feb, [facility] [address] [id number] [facility] [place] [address] Jan, [facility] [address] [id number] [facility] [place] [address] Jan, [facility] [address] [id number] [facility] [address] Jan, [facility] [address] [id number] [facility] [address] 24 Jan, 2014 [facility] [address] [id number] [address] [place] [address], [place] [address] Jan, [facility] [address] [id number] [address] [place] [address], [place] [address] Jan, [facility] [address] [id number] [address] [place] [address], [place] [address] Jan, [facility] [address] [id number] [address] [place] [address], [place] [address] Jan, [facility] [address] [id number] [address] [place] [address], [place] [address] Jan, [facility] [address] [id number] [address] [place] [address], [place] [address] Jan, [facility] [address] [id number] [address] [place] [address], [place] [address] Dec, [facility] [address] [id number] [address] [place] [address], [place] [address] Dec, [facility] [address] [id number] [address] [place] [address], [place] [address] Dec, [facility] [address] [id number] [address] [place] [address], [place] [address] 2013 [facility] [address] [id number] [address] [place] [address], [place] [address] Dec, [facility] [address] [id number] [address] [place] [address], [place] [address] Dec, [facility] [address] [id number] [address] [place] [address], [place] [address] Dec, [facility] [address] [id number] [address] [place] [address], [place] [address] Dec, [facility] [address] [id number] [address] [place] [address], [place] [address] Nov, [facility] [address] [id number] [address] [place] [address], [place] [address] Nov, [facility] [address] [id number] [address] [place] [address], [place] [address] Nov, [facility] [address] [id number] [address] [place] [address], [place] [address] Nov, [facility] [address] [id number] [address] [place] [address], [place] [address] Nov, [facility] [address] [id number] [address] [place] [address], [place] [address] Nov, [facility] [address] [id number] [address] [place] [address], [place] [address] Nov, [facility] [address] [id number] [address] [place] [address], [place] [address] Nov, [facility] [address] [id number] [address] [place] [address], [place] [address] Nov, [facility] [address] [id number] [address] [place] [address], [place] [address] Nov, [facility] [address] [id number] [address] [place] [address], [place] [address] Nov, [facility] [address] [id number] [address] [place] [address], [place] [address] Nov, [facility] [address] [id number] [address] [place] [address], [place] [address] Nov, [facility] [address] [id number] [address] [place] [address], [place] [address] 30 Oct, 2013 [facility] [address] [id number] [address] [place] [address], [place] [address] Oct, [facility] [address] [id number] [address] [place] [address], [place] [address] Oct, [facility] [address] [id number] [address] [place] [address], [place] [address] Oct, [facility] [address] [id number] [address] [place] [address], [place] [address] Oct, [facility] [address] [id number] [address] [place] [address], [place] [address] Oct, [facility] [address] [id number] [address] [place] [address], [place] [address] Oct, [facility] [address] [id number] [address] [place] [address], [place] [address] Oct, [facility] [address] [id number] [address] [place] [address], [place] [address] Oct, [facility] [address] [id number] [address] [place] [address], [place] [address] Oct, [facility] [address] [id number] [address] [place] [address], [place] [address] Oct, [facility] [address] [id number] [address] [place] [address], [place] [address] Oct, [facility] [address] [id number] [address] [place] [address], [place] [address] Oct, [facility] [address] [id number] [address] [place] [address], [place] [address] Oct, [facility] [address] [id number] [address] [place] [address], [place] [address] 14 Sep, 2013 [facility] [address] [id number] [address] [place] [address], [place] [address] Sep, [facility] [address] [id number] [address] [place] [address], [place] [address] Sep, [facility] [address] [id number] [address] [place] [id number] Sep, [facility] [address] [id number] [address] [place] [id number] Sep, [facility] [address] [id number] [address] [place] [address] Sep, [facility] [address] [id number] [address] [place] [address], [place] [address] Sep, [facility] [address] [id number] [address] [place] [id number] Sep, [facility] [address] [id number] [address] [place] [id number] Sep, [facility] [address] [id number] [address] [place] [id number] Sep, [facility] [address] [id number] [address] [place] [id number] Aug, [facility] [address] [id number] [address] [place] [id number] Aug, [facility] [address] [id number] [address] [place] [phone] Aug, [facility] [address] [id number] [address] [place] [id number] Aug, [facility] [address] [id number] [address] [place] [address], [place] [address] Aug, [facility] [address] [id number] [address] [place] [id number] Aug, [facility] [address] [id number] [address] [place] [id number] Aug, [facility] [address] [id number] [address] [place] [address], [place] [address] 23 Aug, 2012 [facility] [address] [id number] [address] [place] [address], [place] [address] 22 Aug, 2012 [facility] [address] [id number] [address] [place] [address], [place] [address] 22 Aug, 2012 [facility] [address] [id number] [address] [place] [address], [place] [address] 18 Aug, 2012 [facility] [address] [id number] [address] [place] [address], [place] [address] 18 Aug, 2012 [facility] [address] [id number] [address] [place] [address], [place] [address] 18 Aug, 2013 [facility] [address] [id number] [address] [place] [address], [place] [address] 18 Aug, 2013 [facility] [address] [id number] [address] [place] [address], [place] [address] 17 Aug, 2012 [facility] [address] [id number] [address] [place] [address], [place] [address] 14 Aug, 2013 [facility] [address] [id number] [address] [place] [address], [place] [address] 14 Aug, 2013 [facility] [address] [id number] [address] [place] [address], [place] [address] 01 Aug, 2013 [facility] [address] [id number] [address] [place] [address], [place] [address] 20 Jul, 2012 [facility] [address] [id number] [address] [place] [address], [place] [address] 19 Sep, 2012 [facility] [address] [id number] [address] [place] [address], [place] [address] 18 Sep, 2012 [facility] [address] [id number] [address] [place] [address], [place] [address] 11 Jul, 2012 [facility] [address] [id number] [address] [place] [address], [place] [address] Jul, [facility] [address] [id number] [address] [place] [address], [place] [address] Jun, [facility] [address] [id number] [address] [place] [address], [place] [address] Jun, [facility] [address] [id number] [address] [place] [address], [place] [address] Jun, [facility] [address] [id number] [address] [place] [address], [place] [address] Jun, [facility] [address] [id number] [address] [place] [address], [place] [address] Jun, [facility] [address] [id number] [address] [place] [address], [place] [address] Jun, [facility] [address] [id number] [address] [place] [address], [place] [address] Jun, [facility] [address] [id number] [address] [place] [address], [place] [address] Jun, [facility] [address] [id number] [address] [place] [address], [place] [address] Jun, [facility] [address] [id number] [address] [place] [address], [place] [address] Jun, [facility] [address] [id number] [address] [place] [address], [place] [address] May, [facility] [address] [id number] [address] [place] [address], [place] [address] May, [facility] [address] [id number] [address] [place] [address], [place] [address] May, [facility] [address] [id number] [address] [place] [address], [place] [address] May, [facility] [address] [id number] [address] [place] [address], [place] [address] May, [facility] [address] [id number] [address] [place] [address], [place] [address] 16 May, 2013 [facility] [address] [id number] [address] [place] [address], [place] [address] May, [facility] [address] [id number] [address] [place] [address], [place] [address] May, [facility] [address] [id number] [address] [place] [address], [place] [address] May, [facility] [address] [id number] [address] [place] [address], [place] [address] Apr, [facility] [address] [id number] [address] [place] [address], [place] [address] Apr, [facility] [address] [id number] [address] [place] [address], [place] [address] Apr, [facility] [address] [id number] [address] [place] [address], [place] [address] Apr, [facility] [address] [id number] [address] [place] [address], [place] [address] Apr, [facility] [address] [id number] [address] [place] [address], [place] [address] Apr, [facility] [address] [id number] [address] [place] [address], [place] [address] Apr, [facility] [address] [id number] [address] [place] [address], [place] [address] March, [facility] [address] [id number] [address] [place] [address], [place] [address] Feb, [facility] [address] [id number] [address] [place] [address], [place] [address] Feb, [facility] [address] [id number] [address] [place] [address], [place] [address] Feb, [facility] [address] [id number] [address] [place] [address], [place] [address] Jan, [facility] [address] [id number] [address] [place] [address], [place] [address] 21 Jan, 2013 [facility] [address] [id number] [address] [place] [address], [place] [address] 19 Jan, 2013 [facility] [address] [id number] [address] [place] [address], [place] [address] 14 Jan, 2013 [facility] [address] [id number] [address] [place] [address], [place] [address] 12 Jan, 2013 [facility] [address] [id number] [address] [place] [address], [place] [address] 08 Jan, 2013 [facility] [address] [id number] [address] [place] [address], [place] [address] 07 Jan, 2013 [facility] [address] [id number] [address] [place] [address], [place] [address] 04 Jan, 2013 [facility] [address] [id number] [address] [place] [address], [place] [address] 28 Dec, 2012 [facility] [address] [id number] [address] [place] [address], [place] [address] 25 Dec, 2012 [facility] [address] [id number] [address] [place] [address], [place] [address] 13 Dec, 2012 [facility] [address] [id number] [address] [place] [address], [place] [address] 11 Dec, 2012 [facility] [address] [id number] [address] [place] [address], [place] [address] 07 Dec, 2012 [facility] [address] [id number] [address] [place] [address], [place] [address] 06 Dec, 2012 [facility] [address] [id number] [address] [place] [address], [place] [address] 05 Dec, 2012 [facility] [address] [id number] [address] [place] [address], [place] [address] Nov, [facility] [address] [id number] [address] [place] [address], [place] [address] Nov, [facility] [address] [id number] [address] [place] [address], [place] [address] 18 Nov, 2012 [facility] [address] [id number] [address] [place] [address], [place] [address] 15 Nov, 2012 [facility] [address] [id number] [address] [place] [address], [place] [address] Nov, [facility] [address] [id number] [address] [place] [address], [place] [address] Nov, [facility] [address] [id number] [address] [place] [address], [place] [address] Nov, [facility] [address] [id number] [address] [place] [address], [place] [address] Oct, [facility] [address] [id number] [address] [place] [address], [place] [address] Oct, [facility] [address] [id number] [address] [place] [address], [place] [address] Oct, [facility] [address] [id number] [address] [place] [address], [place] [address] Oct, [facility] [address] [id number] [address] [place] [address], [place] [address] Oct, [facility] [address] [id number] [address] [place] [address], [place] [address] Oct, [facility] [address] [id number] [address] [place] [address], [place] [address] Oct, [facility] [address] [id number] [address] [place] [address], [place] [address] Oct, [facility] [address] [id number] [address] [place] [address], [place] [address] 05 Oct, 2012 [facility] [address] [id number] [address] [place] [address], [place] [address] 05 Oct, 2012 [facility] [address] [id number] [address] [place] [address], [place] [address] Oct, [facility] [address] [id number] [address] [place] [address], [place] [address] Oct, [facility] [address] [id number] [address] [place] [address], [place] [address] Sep, [facility] [address] [id number] [address] [place] [address], [place] [address] Sep, [facility] [address] [id number] [address] [place] [address], [place] [address] Sep, [facility] [address] [id number] [address] [place] [address], [place] [address] Sep, [facility] [address] [id number] [address] [place] [address], [place] [address] Sep, [facility] [address] [id number] [address] [place] [address], [place] [address] Sep, [facility] [address] [id number] [address] [place] [address], [place] [address] Sep, [facility] [address] [id number] [address] [place] [address], [place] [address] Sep, [facility] [address] [id number] [address] [place] [address], [place] [address] Sep, [facility] [address] [id number] [address] [place] [address], [place] [address] Sep, [facility] [address] [id number] [address] [place] [address], [place] [address] Sep, [facility] [address] [id number] [address] [place] [address], [place] [address] Aug, [facility] [address] [id number] [address] [place] [address], [place] [address] Aug, [facility] [address] [id number] [address] [place] [address], [place] [address] Aug, [facility] [address] [id number] [address] [place] [address], [place] [address] Aug, [facility] [address] [id number] [address] [place] [address], [place] [address] Aug, [facility] [address] [id number] [address] [place] [address], [place] [address] Aug, [facility] [address] [id number] [address] [place] [address], [place] [address] Aug, [facility] [address] [id number] [address] [place] [address], [place] [address] Aug, [facility] [address] [id number] [address] [place] [address], [place] [address] Aug, [facility] [address] [id number] [address] [place] [address], [place] [address] Aug, [facility] [address] [id number] [address] [place] [address], [place] [address] Jul, [facility] [address] [id number] [address] [place] [address], [place] [address] 20 Jul, 2012 [facility] [address] [id number] [address] [place] [address], [place] [address] 10 Jul, 2012 [facility] [address] [id number] [address] [place] [address], [place] [address] 06 Jul, 2012 [facility] [address] [id number] [address] [place] [address], [place] [address] 30 Jun, 2012 [facility] [address] [id number] [address] [place] [address], [place] [address] Jun, [facility] [address] [id number] [address] [place] [address], [place] [address] 16 Jun, 2012 [facility] [address] [id number] [address] [place] [address], [place] [address] Jun, [facility] [address] [id number] [address] [place] [address] [place] [address] Jun, [facility] [address] [id number] [address] [place] [address], [place] [address] Jun, [facility] [address] [id number] [address] [place] [address], [place] [address] Jun, [facility] [address] [id number] [address] [place] [address], [place] [address] May, [facility] [address] [id number] [address] [place] [address], [place] [address] May, [facility] [address] [id number] [address] [place] [address], [place] [address] May, [facility] [address] [id number] [address] [place] [address], [place] [address] May, [facility] [address] [id number] [address] [place] [address], [place] [address] May, [facility] [address] [id number] [address] [place] [address], [place] [address] Apr, [facility] [address] [id number] [address] [place] [address], [place] [address] Apr, [facility] [address] [id number] [address] [place] [address], [place] [address] Apr, [facility] [address] [id number] [address] [place] [address], [place] [address] Apr, [facility] [address] [id number] [address] [place] [address], [place] [address] Apr, [facility] [address] [id number] [address] [place] [address], [place] [address] March, [facility] [address] [id number] [address] [place] [address], [place] [address] March, [facility] [address] [id number] [address] [place] [address], [place] [address] March, [facility] [address] [id number] [address] [place] [address], [place] [address] March, [facility] [address] [id number] [address] [place] [address], [place] [address] March, [facility] [address] [id number] [address] [place] [address], [place] [address] March, [facility] [address] [id number] [address] [place] [address], [place] [address] March, [facility] [address] [id number] [address] [place] [address], [place] [address] March, [facility] [address] [id number] [address] [place] [address], [place] [address] March, [facility] [address] [id number] [address] [place] [address], [place] [address] March, [facility] [address] [id number] [address] [place] [address], [place] [address] 30 Feb, 2012 [facility] [address] [id number] [address] [place] [address], [place] [address] Feb, [facility] [address] [id number] [address] [place] [address], [place] [address] Feb, [facility] [address] [id number] [address] [place] [address], [place] [address] Feb, [facility] [facility] [address] [id number] [address] [place] [address], [place] [id number] 17 Feb, 2012 [facility] [address] [id number] [address] [place] [address], [place] [id number] Feb, [facility] [address] [id number] [address] [place] [address], [place] [id number] Feb, [facility] [address] [id number] [address] [place] [address], [place] [id number] Feb, [facility] [address] [id number] [address] [place] [address], [place] [id number] Feb, [facility] [address] [id number] [address] [place] [address], [place] [id number] Jan, [facility] [address] [id number] [address] [place] [address], [place] [id number] Jan, [facility] [address] [id number] [address] [place] [address], [place] [id number] Jan, [facility] [address] [id number] [address] [place] [address], [place] [id number] Jan, [facility] [address] [id number] [address] [place] [address], [place] [id number] Dec, [facility] [address] [id number] [address] [place] [address], [place] [id number] Dec, [facility] [address] [id number] [address] [place] [address], [place] [id number] Nov, [facility] [address] [id number] [address] [place] [address], [place] [id number] Nov, [facility] [address] [id number] [address] [place] [address], [place] [id number] Nov, [facility] [address] [id number] [address] [place] [address], [place] [id number] Nov, [facility] [address] [id number] [address] [place] [address], [place] [id number] Nov, [facility] [address] [id number] [address] [place] [address], [place] [id number] Oct, [facility] [address] [id number] [address] [place] [address], [place] [id number] Oct, [facility] [address] [id number] [address] [place] [address], [place] [id number] Oct, [facility] [address] [id number] [address] [place] [address], [place] [id number] Oct, [facility] [address] [id number] [address] [place] [id number] Oct, [facility] [address] [facility] [id number] [address] [place] [id number] Oct, [facility] [address] [facility] [id number] [address] [place] [id number] Oct, [facility] [address] [facility] [id number] [address] [place] [id number] Oct, [facility] [address] [facility] [id number] [address] [place] [id number] Sep, IMMUNIZATIONS No Known Immunizations SOCIAL HISTORY Never Assessed REASON FOR VISIT PLAN OF CARE VITAL SIGNS Height 62 in 2014-08-17 Weight 193.3 lbs 2014-08-17 Temperature 99.1 degrees Fahrenheit 2014-08-17 Heart Rate 72 bpm 2014-08-17 Respiratory Rate 24 2014-08-17 Blood pressure systolic 170 mmHg 2014-08-17 Blood pressure diastolic 80 mmHg 2014-08-17 MEDICATIONS Unknown Medications RESULTS No Results PROCEDURES Procedure Date Ordered Result Body Site VISIT Aug 17, 2014 INSTRUCTIONS MEDICATIONS ADMINISTERED No Known Medications [...] History No Surgical history information Hospitalization History [facility]- Urosepsis, ab d pain and fever, discharged 11/27/2017 11/26/2017 Hospitalization History [facility]- Went Unrepsonsive, Hit head 2017 Hospitalization History [facility]- Back Pain 05/05/ 8
--- OUTSIDE RECORDS SUMMARY | 2020-06-18 14:44 | XMS REPORT ---
Author Author Sanjuanita Abdul Doctor Organization [facility] Address Unknown Phone Unavailable Care Team Providers Care Chief Clerk Name Role Phone Migration, Doctor Unavailable Unavailable PROBLEMS Type Condition ICD9-CM Code ZJB14-ZQ Code Onset Dates Condition S tatus SNOMED Code Problem Hypertension I10 Active 1075218 3 Problem Hyperlipidemia E78.5 Active 01760 004 Problem Coronary artery disease I25.10 Active 78733728 Problem Low back pain M54.5 Active 510236 009 Problem Other chronic pain G89.29 Active 8 5684748 Problem Ventral hernia without obstruction or gangrene K43 .9 Active 520981055 Problem Type 2 diabetes mellitus wit hout complication, without long-term current use of insulin E11.9 Active 133378132 Problem Anxiety F41.9 Active 32164911 Problem Peripheral vascular disease I73.9 Ac tive 971040342 Problem Insomnia G47.00 Active 527053124 Problem Microcytic anemia D50.9 Active 23 9282641 Problem Pharyngeal dysphagia R13.13 Active 01154390770459 Problem Other iron deficiency anemia D50.8 A ctive 07179027 Problem Reactive depression F32.9 Active 55418736 Problem Paroxysmal atrial fibrillation I48.0 Active 649738010 Problem 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 Active 18668218 Problem Encounter for suprapubic catheter care Z43.5 Active 664779145 Problem Neurogenic bladder N31.9 Active 3 [id number] ALLERGIES No Information ENCOUNTERS Encounter Location Date Diagnosis [facility] [address] [facility] [id number] [address] [place] [phone] Jan, Anxiety F41.9 and Strain of right shoulder, subsequent encounter S46.911D [facility] [address] [facility] [id number] [address] [place] [phone] Jan, Via [facility], [place] [address] [facility] [address] [place] [id number] Jan, Neurogenic bladder N31.9 [facility] [address] [facility] [id number] [address] [place] [phone] Dec, [place] [address] [id number] [address] [place] [phone] Dec, [place] [address] [id number] [address] [place] [phone] Dec, Anxiety F41.9 and Strain of right shoulder, subsequent encounter S46.911D [place] [address] [id number] [address] [place] [phone] 10 Dec, 2019 Other iron deficiency anemia D50.8 [place] [address] [id number] [address] [place] [phone] 04 Dec, 2019 Via [facility], [place] [address] [place] [id number] Dec, Encounter for suprapubic catheter care Z 43.5 and Microcytic anemia D50.9 [place] [address] [id number] [address] [place] [phone] Dec, [place] [address] [id number] [address] [place] [phone] Nov, Anxiety F41.9 and Strain of right shoulder, subsequent encounter S46.911D [place] [address] [id number] [address] [place] [phone] Nov, Hypertension I10 Via [facility] [address] [place] [id number] Nov, Pneumonia of both lungs due to infectiou s organism, unspecified part of lung J18.9 and Suprapubic catheter Z93.59 [place] [address] [id number] [address] [place] [phone] Nov, Hypertension I10 and Reactiv e depression F32.9 [place] [address] [id number] [address] [place] [phone] Oct, Strain of right shoulder, scherer bsequent encounter S46.911D and Anxiety F41.9 [facility] [address] [id number] [address] [place] [phone] 16 Oct, 2019 Via [facility] [address] [place] [id number] Oct, Suprapubic catheter Z93.59 and Candidias is, intertriginous B37.2 [facility] [address] [id number] [address] [place] [phone] Oct, Suprapubic catheter Z93.59 [facility] [address] [id number] [address] [place] [phone] Oct, Anxiety F41.9 and Strain of right shoulder, subsequent encounter S46.911D [facility] [address] [id number] [address] [place] [phone] Sep, [facility] [address] [id number] [address] [place] [phone] Sep, [facility] [address] [id number] [address] [place] [phone] Sep, Via [facility] [address] [place] [id number] Sep, Suprapubic catheter Z93.59 [facility] [address] [id number] [address] [place] [phone] Sep, Anxiety F41.9 and Strain of right shoulder, subsequent encounter S46.911D [facility] [address] [id number] [address] [place] [phone] Aug, [facility] [address] [id number] [address] [place] [phone] Aug, [facility] [address] [id number] [address] [place] [address] Aug, Anxiety F41.9 and Strain of right shoulder, subsequent encounter S46.911D [facility] [address] [place] [id number] Aug, Suprapubic catheter Z93.59 [facility] [address] [id number] [address] [place] [phone] Jul, Strain of right shoulder, scherer bsequent encounter S46.911D and Anxiety F41.9 [facility] [address] [id number] [address] [place] [phone] Jul, Anxiety F41.9 [place] [address] [id number] [address] [place] [phone] Jun, [place] [address] [id number] [address] [place] [phone] Jun, [place] [address] [id number] [address] [place] [phone] Jun, [place] [address] [id number] [address] [place] [address] Jun, Strain of right shoulder, scherer bsequent encounter S46.911D [place] [address] [id number] [address] [place] [address] Jun, Strain of right shoulder, scherer bsequent encounter S46.911D [place] [address] [id number] [address] [place] [address] Jun, Anxiety F41.9 Via [facility] [address] [place] [id number] Jun, Neurogenic bladder N31.9 and Anxiety F41 .9 Via [facility] [address] [place] [id number] May, Anxiety F41.9 [place] [address] [id number] [address] [place] [address] May, Dysuria R30.0 [place] [address] [id number] [address] [place] [phone] May, Strain of right shoulder, scherer bsequent encounter S46.911D and Anxiety F41.9 [place] [address] [id number] [address] [place] [phone] 27 Apr, 2019 Via [facility] [address] [place] [id number] 18 Apr, 2019 Strain of right shoulder, subsequent enc ounter S46.911D [facility] [address] [id number] [address] [place] [phone] 14 Apr, 2019 Strain of right shoulder, scherer bsequent encounter S46.911D and Anxiety F41.9 Via [facility] [employer] [address] [place] [id number] Apr, Type 2 diabetes mellitus without complic ation, without long-term current use of insulin E11.9 and Neurogenic bladder N31.9 Via [facility] [address] [place] [id number] Apr, Strain of right shoulder, subsequent enc ounter S46.911D ; History of GI bleed Z87.19 ; Neurogenic bladder N31.9 and Reactive depression F32.9 [place] [address] [id number] [address] [place] [address] Apr, Acute pain of left shoulder M25.512 [place] [address] [id number] [address] [place] [phone] Apr, [place] [address] [id number] [address] [place] [phone] Apr, Anxiety F41.9 and 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 [facility] [address] [place] [id number] March, Gastrointestinal hemorrhage associated w ith acute gastritis K29.01 [place] [address] [id number] [address] [place] [phone] March, Via [facility] [employer] [address] [place] [id number] March, Bronchitis J40 [place] [address] [id number] [address] [place] [phone] March, Cough R05 [place] [address] [id number] [address] [place] [address] March, Other chronic pain G89.29 [facility] [address] [id number] [address] [place] [phone] March, Anxiety F41.9 [facility] [address] [id number] [address] [place] [phone] March, [facility] [address] [id number] [address] [place] [address] Feb, Other chronic pain G89.29 [facility] [address] [id number] [address] [place] [phone] Feb, Anxiety F41.9 [facility] [address] [id number] [address] [place] [phone] Feb, Other chronic pain G89.29 Via [facility] [address] [place] [id number] Feb, Neurogenic bladder N31.9 and Suprapubic catheter Z93.59 [facility] [address] [id number] [address] [place] [phone] Jan, Anxiety F41.9 [facility] [address] [id number] [address] [place] [phone] Dec, Anxiety F41.9 [facility] [address] [id number] [address] [place] [phone] Dec, Other chronic pain G89.29 an d Anxiety F41.9 [facility] [address] [id number] [address] [place] [address] Dec, Via [facility] [address] [place] [id number] Dec, Neurogenic bladder N31.9 and Suprapubic catheter Z93.59 [facility] [address] [id number] [address] [place] [phone] Nov, Other chronic pain G89.29 an d Anxiety F41.9 [facility] [address] [id number] [address] [place] [phone] Nov, Via [facility] [facility] [address] [place] [id number] Nov, Suprapubic catheter Z93.59 [facility] [address] [id number] [address] [place] [phone] Oct, Other chronic pain G89.29 an d Anxiety F41.9 [facility] [address] [id number] [address] [place] [phone] Oct, [facility] [address] [id number] [address] [place] [phone] Oct, Suprapubic catheter Z93.59 [facility] [address] [id number] [address] [place] [phone] Oct, Via [facility] [address] [place] [id number] Oct, [facility] [address] [id number] [address] [place] [phone] Oct, Anxiety F41.9 [facility] [address] [id number] [address] [place] [phone] Oct, Anxiety F41.9 Via [facility] [address] [place] [id number] Oct, Other chronic pain G89.29 [facility] [address] [id number] [address] [place] [phone] Sep, Other chronic pain G89.29 Via [facility] [employer] [facility] [address] [place] [id number] Sep, Suprapubic catheter Z93.59 and Cervicalg ia M54.2 [facility] [address] [id number] [address] [place] [phone] Sep, [facility] [address] [id number] [address] [place] [phone] Sep, [facility] [address] [id number] [address] [place] [phone] Sep, Via [facility] [address] [place] [id number] Aug, Cystitis N30.90 [facility] [address] [id number] [address] [place] [phone] Aug, [facility] [address] [id number] [address] [place] [phone] Aug, Other chronic pain G89.29 [facility] [address] [id number] [address] [place] [phone] Aug, Via [facility] [address] [place] [id number] Aug, Encounter for suprapubic catheter care Z 43.5 [facility] [address] [id number] [address] [place] [phone] Jul, Via [facility] [address] [place] [id number] Jul, [facility] [address] [id number] [address] [place] [phone] Jul, Other chronic pain G89.29 [facility] [address] [id number] [address] [place] [phone] Jul, [facility] [address] [id number] [address] [place] [phone] Jul, Via [facility] [address] [place] [id number] Jun, 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 [facility] [address] [id number] [address] [place] [phone] Jun, Other chronic pain G89.29 [facility] [address] [id number] [address] [place] [phone] Jun, Via [facility] [address] [place] [id number] May, Anxiety F41.9 ; Type 2 diabetes mellitus without complication, without long-term current use of insulin E11.9 ; Hypertension I10 ; Low back pain M54.5 ; Paroxysmal atrial fibrillation I48.0 and 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 [facility] [address] [id number] [address] [place] [phone] May, Other chronic pain G89.29 Via [email or web address] [address] [place] [id number] May, Low back pain M54.5 [facility] [address] [id number] [address] [place] [phone] May, [facility] [address] [id number] [address] [place] [phone] Apr, Other chronic pain G89.29 [facility] [address] [id number] [address] [place] [phone] Apr, [facility] [address] [id number] [address] [place] [phone] Apr, Via [facility] [address] [place] [id number] Apr, Closed compression fracture of L3 lumbar vertebra with routine healing, subsequent encounter S32.030D [facility] [email or web address] [address] [place] [id number] Apr, Low back pain M54.5 Via [facility] [employer] [address] [place] [id number] Apr, Coccydynia M53.3 [facility] [address] [id number] [address] [place] [phone] March, [facility] [address] [id number] [address] [place] [phone] March, Other chronic pain G89.29 [facility] [address] [id number] [address] [place] [phone] March, [facility] [address] [id number] [address] [place] [phone] March, [facility] [address] [id number] [address] [place] [phone] Feb, [facility] [address] [id number] [address] [place] [phone] Feb, Other chronic pain G89.29 Via [facility] [address] [place] [id number] Feb, Other chronic pain G89.29 and Anxiety F4 1.9 [facility] [address] [id number] [address] [place] [phone] Feb, [facility] [address] [id number] [address] [place] [phone] Jan, [facility] [address] [id number] [address] [place] [phone] Jan, [facility] [address] [id number] [address] [place] [phone] Jan, [facility] [address] [id number] [address] [place] [phone] Jan, [facility] [address] [id number] [address] [place] [phone] Dec, Via [facility] [address] [place] [id number] Dec, Peripheral vascular disease I73.9 ; 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 ; Other chronic pain G89.29 ; Anxiety F41.9 ; Reactive depression F32.9 ; Insomnia G47.00 and Type 2 diabetes mellitus without complication, without long-term current use of insulin E11.9 [facility] [place] [id number] [place] [address] Nov, [facility] [address] [id number] [place] [id number] Nov, Anxiety F41.9 [facility] [address] [id number] [address] [place] [phone] Nov, [facility] [address] [id number] [place] [id number] Nov, Anxiety F41.9 Via [facility] [address] [place] [id number] Nov, Status post surgery Z98.890 ; Confused R 41.0 ; Anxiety F41.9 and Other chronic pain G89.29 [facility] [address] [id number] [place] [id number] Nov, Other chronic pain G89.29 [facility] [address] [facility] [id number] [address] [place] [phone] Oct, [facility] [address] [id number] [place] [id number] Oct, Other chronic pain G89.29 [facility] [address] [facility] [id number] [address] [place] [phone] Oct, Anxiety F41.9 [facility] [address] [id number] [place] [id number] Sep, Other chronic pain G89.29 [facility] [address] [id number] [place] [id number] Sep, Via [facility] [address] [place] [id number] Aug, Dysuria R30.0 and Anxiety F41.9 [facility] [address] [id number] [address] [place] [phone] Aug, [facility] [address] [id number] [place] [id number] Aug, Other chronic pain G89.29 [facility] [address] [facility] [id number] [address] [place] [phone] Jul, Other chronic pain G89.29 [facility] [address] [id number] [place] [id number] Jun, [facility] [address] [id number] [place] [id number] Jun, Other chronic pain G89.29 [facility] [address] [id number] [address] [place] [phone] Jun, [facility] [address] [facility] [id number] [address] [place] [phone] May, Other chronic pain G89.29 [facility] [address] [facility] [id number] [address] [place] [phone] Apr, Other chronic pain G89.29 Via [facility] [address] [place] [id number] Apr, Reactive depression F32.9 and Pharyngeal dysphagia R13.13 [facility] [address] [facility] [id number] [address] [place] [phone] Apr, Urinary tract infection with out hematuria, site unspecified N39.0 [facility] [address] [facility] [id number] [address] [place] [phone] March, Other chronic pain G89.29 [facility] [address] [facility] [id number] [address] [place] [phone] Feb, Other chronic pain G89.29 [facility] [address] [facility] [id number] [address] [place] [phone] Feb, [facility] [address] [id number] [place] [id number] Feb, [facility] [address] [place] [id number] Feb, Dysuria R30.0 and Ventral hernia without obstruction or gangrene K43.9 [facility] [address] [id number] [address] [place] [address] Jan, Other chronic pain G89.29 [facility] [address] [id number] [place] [id number] Dec, Other chronic pain G89.29 [facility] [address] [id number] [address] [place] [phone] Nov, Other chronic pain G89.29 Via [facility] [place] [address] [place] [id number] Nov, Lymphadenitis I88.9 [facility] [address] [id number] [address] [place] [id number] Nov, Other chronic pain G89.29 [facility] [address] [id number] [address] [place] [id number] Nov, [facility] [address] [id number] [place] [id number] Nov, Other chronic pain G89.29 [facility], [place] [address] [place] [id number] Oct, Low back pain M54.5 ; Hypertension I10 a nd Type 2 diabetes mellitus without complication, without long-term current use of insulin E11.9 [facility] [address] [id number] [address] [place] [id number] Oct, [facility] [address] [id number] [address] [place] [phone] Oct, [facility] [address] [id number] [address] [place] [phone] Oct, [facility] [address] [id number] [address] [place] [id number] Oct, [facility] [address] [id number] [address] [place] [id number] Sep, [facility] [address] [id number] [address] [place] [id number] Sep, [facility] [address] [facility] [id number] [address] [place] [phone] Aug, Other chronic pain G89.29 [facility] [address] [id number] [address] [place] [id number] Jul, [facility] [address] [id number] [address] [place] [id number] Jul, [facility] [address] [id number] [address] [place] [phone] Jul, [facility] [address] [id number] [address] [place] [id number] Jun, [facility] [address] [id number] [address] [place] [phone] Jun, [facility], [place] [address] [place] [id number] Jun, Low back pain M54.5 ; Other chronic pain G89.29 and Coronary artery disease I25.10 [facility] [address] [id number] [address] [place] [id number] Jun, [facility] [address] [id number] 61 [place] [id number] May, [facility] [address] [id number] [address] [place] [address] May, [facility] [address] [id number] [address] [place] [id number] May, Other chronic pain G89.29 [facility] [address] [id number] [address] [place] [phone] May, [facility] [address] [id number] [address] [place] [phone] Apr, [facility] [address] [id number] [address] [place] [id number] 17 Apr, 2016 Acute cystitis without hemat uria N30.00 [facility] [address] [id number] [address] [place] [address] 16 Apr, 2016 Acute cystitis without hemat uria N30.00 ; Coronary artery disease I25.10 ; Low back pain M54.5 and Other chronic pain G89.29 [facility] [address] [id number] [address] [place] [phone] 13 Apr, 2016 Other chronic pain G89.29 [facility] [address] [id number] [address] [place] [phone] March, Other chronic pain G89.29 [facility] [address] [id number] [address] [place] [phone] 18 Feb, 2016 [facility] [address] [id number] [address] [place] [phone] 15 Feb, 2016 Arthritis M19.90 [facility] [address] [id number] [address] [place] [phone] Feb, [facility] [address] [id number] [address] [place] [phone] 30 Jan, 2016 [facility] [address] [id number] [address] [place] [phone] Jan, [facility] [address] [id number] [address] [place] [phone] Jan, Other chronic pain G89.29 [facility] [address] [id number] [address] [place] [phone] Jan, Hypertension I10 ; Coronary artery disease I25.10 and Insomnia G47.00 [facility] [address] [facility] [id number] [address] [place] [phone] Jan, [facility] [address] [id number] [address] [place] [phone] Dec, Right hip pain M25.551 [facility] [address] [id number] [address] [place] [phone] Dec, [facility] [address] [facility] [id number] [address] [place] [phone] Dec, [facility] [address] [facility] [id number] [address] [place] [phone] Dec, [facility] [address] [id number] [address] [place] [phone] Dec, Other chronic pain G89.29 [facility] [address] [id number] [address] [place] [phone] Dec, [facility] [address] [id number] [address] [place] [phone] Nov, [facility] [address] [id number] [address] [place] [phone] Nov, Other chronic pain G89.29 [facility] [address] [id number] [address] [place] [phone] Nov, Right hip pain M25.551 and C oronary artery disease I25.10 [facility] [address] [id number] [address] [place] [phone] Nov, Other chronic pain G89.29 [facility] [address] [id number] [address] [place] [phone] Oct, [facility] [address] [id number] [address] [place] [phone] Oct, [facility] [address] [id number] [address] [place] [phone] Sep, [facility] [address] [id number] [address] [place] [phone] Sep, [facility] [address] [id number] [address] [place] [phone] Aug, [facility] [address] [id number] [address] [place] [phone] Aug, Hypertension I10 ; Coronary artery disease I25.10 and Arthritis M19.90 [facility] [address] [id number] [address] [place] [phone] Jun, [facility] [address] [id number] [address] [place] [phone] Jun, Essential hypertension, jayson gn 401.1 ; Other chronic pain 338.29 and Chronic airway obstruction, not elsewhere classified 496 [facility] [address] [id number] [address] [place] [address], [place] [address] Jun, [facility] [address] [id number] [address] [place] [address], [place] [address] Jun, [facility] [address] [id number] [address] [place] [address], [place] [address] Jun, [facility] [address] [id number] [address] [place] [address], [place] [address] May, [facility] [address] [id number] [address] [place] [address], [place] [address] May, [facility] [address] [id number] [address] [place] [address], [place] [address] Apr, [facility] [address] [id number] [address] [place] [address], [place] [address] Apr, [facility] [address] [id number] [address] [place] [address], [place] [address] Apr, [facility] [address] [id number] [address] [place] [address], [place] [address] March, [facility] [address] [id number] [address] [place] [phone] March, [facility] [address] [id number] [address] [place] [address], [place] [address] March, [facility] [address] [id number] [address] [place] [phone] March, [facility] [address] [id number] [address] [place] [id number] March, Sialadenitis 527.2 [facility] [address] [id number] [address] [place] [phone] Feb, [facility] [address] [id number] [address] [place] [phone] Feb, [facility] [address] [id number] [address] [place] [address], [place] [address] 29 Feb, 2015 [facility] [address] [id number] [address] [place] [address], [place] [address] 14 Feb, 2015 [facility] [address] [id number] [address] [place] [address], [place] [address] Feb, [facility] [address] [id number] [address] [place] [address], [place] [address] Jan, [facility] [address] [id number] [address] [place] [address], [place] [address] Jan, [facility] [address] [id number] [address] [place] [address], [place] [address] Jan, [facility] [address] [id number] [address] [place] [address], [place] [address] Jan, [facility] [address] [id number] [address] [place] [address], [place] [address] Jan, [facility] [address] [id number] [address] [place] [address], [place] [address] Jan, [facility] [address] [id number] [address] [place] [address], [place] [address] Dec, 2014 [facility] [address] [id number] [address] [place] [address], [place] [address] Dec, 2014 [facility] [address] [id number] [address] [place] [address], [place] [address] Dec, 2014 [facility] [address] [id number] [address] [place] [address], [place] [address] Dec, 2014 [facility] [address] [id number] [address] [place] [address], [place] [address] Dec, 2014 [facility] [address] [id number] [address] [place] [address], [place] [address] Dec2014 [facility] [address] [id number] [address] [place] [address], [place] [address] Nov, [facility] [address] [id number] [address] [place] [address], [place] [address] Nov, [facility] [address] [id number] [address] [place] [address], [place] [address] Nov, [facility] [address] [id number] [address] [place] [address], [place] [address] Nov, [facility] [address] [id number] [address] [place] [address], [place] [address] Nov, [facility] [address] [id number] [address] [place] [address], [place] [address] Nov, [facility] [address] [id number] [address] [place] [address], [place] [address] Nov, [facility] [address] [id number] [address] [place] [address], [place] [address] Nov, [facility] [address] [id number] [address] [place] [address], [place] [address] Nov, [facility] [address] [id number] [address] [place] [address], [place] [address] Nov, [facility] [address] [id number] [address] [place] [address], [place] [address] Nov, [facility] [address] [id number] [address] [place] [address], [place] [address] Nov, [facility] [address] [id number] [address] [place] [address], [place] [address] Nov, [facility] [address] [id number] [address] [place] [address], [place] [address] Nov, [facility] [address] [id number] [address] [place] [address], [place] [address] Oct, [facility] [address] [id number] [address] [place] [address], [place] [address] 19 Oct, 2014 [facility] [address] [id number] [address] [place] [address], [place] [address] 19 Oct, 2014 [facility] [address] [id number] [address] [place] [address], [place] [address] 18 Oct, 2014 [facility] [address] [id number] [address] [place] [address], [place] [address] 18 Oct, 2014 [facility] [address] [id number] [address] [place] [address], [place] [address] Oct, [facility] [address] [id number] [address] [place] [address], [place] [address] 17 Oct, 2014 [facility] [address] [id number] [address] [place] [address], [place] [address] Oct, [facility] [address] [id number] [address] [place] [address], [place] [address] Oct, [facility] [address] [id number] [address] [place] [address], [place] [address] Sep, [facility] [address] [id number] [address] [place] [address], [place] [address] Sep, [facility] [address] [id number] [address] [place] [address], [place] [address] Sep, [facility] [address] [id number] [address] [place] [address], [place] [address] Sep, [facility] [address] [id number] [address] [place] [address], [place] [address] Sep, [facility] [address] [id number] [address] [place] [address], [place] [address] Sep, [facility] [address] [id number] [address] [place] [address], [place] [address] Sep, [facility] [address] [id number] [address] [place] [address], [place] [address] Sep, [facility] [address] [id number] [address] [place] [address], [place] [address] Sep, [facility] [address] [id number] [address] [place] [address], [place] [address] Sep, [facility] [address] [id number] [address] [place] [address], [place] [address] Sep, [facility] [address] [id number] [address] [place] [address], [place] [address] Sep, [facility] [address] [id number] [address] [place] [address], [place] [address] Aug, [facility] [address] [id number] [address] [place] [address], [place] [address] Aug, [facility] [address] [id number] [address] [place] [address], [place] [address] Aug, [facility] [address] [id number] [address] [place] [address], [place] [address] Aug, [facility] [address] [id number] [address] [place] [address], [place] [address] Aug, [facility] [address] [id number] [address] [place] [address], [place] [address] Aug, [facility] [address] [id number] [address] [place] [address], [place] [address] Aug, [facility] [address] [id number] [address] [place] [address], [place] [address] Aug, [facility] [address] [id number] [address] [place] [address], [place] [address] 30 Jul, 2014 [facility] [address] [id number] [address] [place] [address], [place] [address] 30 Jul, 2014 [facility] [address] [id number] [address] [place] [address], [place] [address] 30 Jul, 2013 [facility] [address] [id number] [address] [place] [address], [place] [address] 30 Jul, 2014 [facility] [address] [id number] [address] [place] [address], [place] [address] Jul, [facility] [address] [id number] [address] [place] [address], [place] [address] Jul, [facility] [address] [id number] [address] [place] [address], [place] [address] 15 Jul, 2014 [facility] [address] [id number] [address] [place] [address], [place] [address] 15 Jul, 2014 [facility] [address] [id number] [address] [place] [address], [place] [address] Jul, [facility] [address] [id number] [address] [place] [address], [place] [address] Jul, [facility] [address] [id number] [address] [place] [address], [place] [address] Jun, [facility] [address] [id number] [address] [place] [address], [place] [address] Jun, [facility] [address] [id number] [address] [place] [address], [place] [address] Jun, [facility] [address] [id number] [address] [place] [address], [place] [address] Jun, [facility] [address] [id number] [address] [place] [address], [place] [address] Jun, [facility] [address] [id number] [address] [place] [address], [place] [address] Jun, [facility] [address] [id number] [address] [place] [address], [place] [address] Jun, [facility] [address] [id number] [address] [place] [address], [place] [address] Jun, [facility] [address] [id number] [address] [place] [address], [place] [address] Jun, [facility] [address] [id number] [address] [place] [address], [place] [address] Jun, [facility] [address] [id number] [address] [place] [address], [place] [address] Jun, [facility] [address] [id number] [address] [place] [address], [place] [address] Jun, [facility] [address] [id number] [address] [place] [address], [place] [address] Jun, [facility] [address] [id number] [address] [place] [address], [place] [address] Jun, [facility] [address] [id number] [address] [place] [address], [place] [address] Jun, [facility] [address] [id number] [address] [place] [address], [place] [address] Jun, [facility] [address] [id number] [address] [place] [address], [place] [address] Jun, [facility] [address] [id number] [address] [place] [address], [place] [address] Jun, [facility] [address] [id number] [address] [place] [address], [place] [address] Jun, [facility] [address] [id number] [address] [place] [address], [place] [address] Jun, [facility] [address] [id number] [address] [place] [address], [place] [address] Jun, [facility] [address] [id number] [address] [place] [address], [place] [address] Jun, [facility] [address] [id number] [address] [place] [address], [place] [address] May, [facility] [address] [id number] [address] [place] [address], [place] [address] May, [facility] [address] [id number] [address] [place] [address], [place] [address] May, [facility] [address] [id number] [facility] [place] [address] May, 2013 [facility] [address] [id number] [facility] [place] [address] May, [facility] [address] [id number] [facility] [place] [address] May, 2013 [facility] [address] [id number] [facility] [place] [address] May, 2013 [facility] [address] [id number] [facility] [place] [address] May, 2013 [facility] [address] [id number] [facility] [place] [address] May, [facility] [address] [id number] [address] [place] [address], [place] [address] May, [facility] [address] [id number] [address] [place] [address], [place] [address] May, [facility] [address] [id number] [address] [place] [address], [place] [address] May, [facility] [address] [id number] [address] [place] [address], [place] [address] May, [facility] [address] [id number] [address] [place] [address], [place] [address] Apr, [facility] [address] [id number] [address] [place] [address], [place] [address] Apr, [facility] [address] [id number] [address] [place] [address], [place] [address] Apr, [facility] [address] [id number] [address] [place] [address], [place] [address] Apr, [facility] [address] [id number] [address] [place] [address], [place] [address] Apr, [facility] [address] [id number] [address] [place] [address], [place] [address] Apr, [facility] [address] [id number] [facility] [place] [address] Apr, [facility] [address] [id number] [facility] [place] [address] Apr, [facility] [address] [id number] [facility] [place] [address] Apr, [facility] [address] [id number] [address] [place] [address], [place] [address] March, [facility] [address] [id number] [address] [place] [address], [place] [address] March, [facility] [address] [id number] [address] [place] [address], [place] [address] March, [facility] [address] [id number] [address] [place] [address], [place] [address] March, [facility] [address] [id number] [address] [place] [address], [place] [address] March, [facility] [address] [id number] [address] [place] [address], [place] [address] March, [facility] [address] [id number] [address] [place] [address], [place] [address] March, [facility] [address] [id number] [address] [place] [address], [place] [address] March, [facility] [address] [id number] [address] [place] [address], [place] [address] March, [facility] [address] [id number] [address] [place] [address], [place] [address] March, [facility] [address] [id number] [address] [place] [address], [place] [address] March, [facility] [address] [id number] [address] [place] [address], [place] [address] March, [facility] [address] [id number] [address] [place] [address], [place] [address] March, [facility] [address] [id number] [address] [place] [address], [place] [address] March, [facility] [address] [id number] [address] [place] [address], [place] [address] March, [facility] [address] [id number] [address] [place] [address], [place] [address] March, [facility] [address] [id number] [address] [place] [address], [place] [address] March, [facility] [address] [id number] [address] [place] [address], [place] [address] March, [facility] [address] [id number] [address] [place] [address], [place] [address] March, [facility] [address] [id number] [address] [place] [address], [place] [address] March, [facility] [address] [id number] [address] [place] [address], [place] [address] Feb, [facility] [address] [id number] [address] [place] [address], [place] [address] Feb, [facility] [address] [id number] [address] [place] [address], [place] [address] Feb, [facility] [address] [id number] [address] [place] [address], [place] [address] Feb, [facility] [address] [id number] [address] [place] [address], [place] [address] Feb, [facility] [address] [id number] [address] [place] [address], [place] [address] Feb, [facility] [address] [id number] [address] [place] [address], [place] [address] Feb, [facility] [address] [id number] [address] [place] [address], [place] [address] Feb, [facility] [address] [id number] [facility] [place] [address] Jan, [facility] [address] [id number] [facility] [place] [address] Jan, [facility] [address] [id number] [facility] [place] [address] Jan, [facility] [address] [id number] [facility] [place] [address] 24 Jan, 2014 [facility] [address] [id number] [address] [place] [address], [place] [address] Jan, [facility] [address] [id number] [address] [place] [address], [place] [address] Jan, [facility] [address] [id number] [address] [place] [address], [place] [address] Jan, [facility] [address] [id number] [address] [place] [address], [place] [address] Jan, [facility] [address] [id number] [address] [place] [address], [place] [address] Jan, [facility] [address] [id number] [address] [place] [address], [place] [address] Jan, [facility] [address] [id number] [address] [place] [address], [place] [address] Dec, [facility] [address] [id number] [address] [place] [address], [place] [address] Dec, [facility] [address] [id number] [address] [place] [address], [place] [address] Dec, [facility] [address] [id number] [address] [place] [address], [place] [address] 2013 [facility] [address] [id number] [address] [place] [address], [place] [address] Dec, [facility] [address] [id number] [address] [place] [address], [place] [address] Dec, [facility] [address] [id number] [address] [place] [address], [place] [address] Dec, [facility] [address] [id number] [address] [place] [address], [place] [address] Dec, [facility] [address] [id number] [address] [place] [address], [place] [address] Nov, [facility] [address] [id number] [address] [place] [address], [place] [address] Nov, [facility] [address] [id number] [address] [place] [address], [place] [address] Nov, [facility] [address] [id number] [address] [place] [address], [place] [address] Nov, [facility] [address] [address] [id number] [address] [place] [address], [place] [address] Nov, [facility] [address] [id number] [address] [place] [address], [place] [address] Nov, [facility] [address] [id number] [address] [place] [address], [place] [address] Nov, [facility] [address] [id number] [address] [place] [address], [place] [address] Nov, [facility] [address] [id number] [address] [place] [address], [place] [address] Nov, [facility] [address] [id number] [address] [place] [address], [place] [address] Nov, [facility] [place] [facility] [address] [id number] [address] [place] [address], [place] [address] Nov, [facility] [address] [id number] [address] [place] [address], [place] [address] Nov, [facility] [address] [id number] [address] [place] [address], [place] [address] Nov, [facility] [address] [id number] [address] [place] [address], [place] [address] 30 Oct, 2013 [facility] [address] [id number] [address] [place] [address], [place] [address] Oct, [facility] [address] [id number] [address] [place] [address], [place] [address] Oct, [facility] [address] [id number] [address] [place] [address], [place] [address] Oct, [facility] [address] [id number] [address] [place] [address], [place] [address] Oct, [facility] [address] [id number] [address] [place] [address], [place] [address] Oct, [facility] [address] [id number] [address] [place] [address], [place] [address] Oct, [facility] [address] [id number] [address] [place] [address], [place] [address] Oct, [facility] [address] [id number] [address] [place] [address], [place] [address] Oct, [facility] [address] [id number] [address] [place] [address], [place] [address] Oct, [facility] [address] [id number] [address] [place] [address], [place] [address] Oct, [facility] [address] [id number] [address] [place] [address], [place] [address] Oct, [facility] [address] [id number] [address] [place] [address], [place] [address] Oct, [facility] [address] [id number] [address] [place] [address], [place] [address] Oct, [facility] [address] [id number] [address] [place] [address], [place] [address] 14 Sep, 2013 [facility] [address] [id number] [address] [place] [address], [place] [address] Sep, [facility] [place] [address] [id number] [address] [place] [address], [place] [address] Sep, [facility] [address] [id number] [address] [place] [id number] Sep, [facility] [address] [id number] [address] [place] [id number] Sep, [facility] [address] [id number] [address] [place] [id number] Sep, [facility] [address] [id number] [address] [place] [address], [place] [address] Sep, [facility] [address] [id number] [address] [place] [id number] Sep, [facility] [address] [id number] [address] [place] [id number] Sep, [facility] [address] [id number] [address] [place] [id number] Sep, [facility] [address] [id number] [address] [place] [id number] Aug, [facility] [address] [id number] [address] [place] [id number] Aug, [facility] [address] [id number] [address] [place] [id number] Aug, [facility] [address] [id number] [address] [place] [id number] Aug, [facility] [address] [id number] [address] [place] [address], [place] [address] Aug, [facility] [address] [id number] [address] [place] [id number] Aug, [facility] [address] [id number] [address] [place] [phone] Aug, [facility] [address] [id number] [address] [place] [address], [place] [address] 23 Aug, 2012 [facility] [address] [id number] [address] [place] [address], [place] [address] 22 Aug, 2012 [facility] [address] [id number] [address] [place] [address], [place] [address] 22 Aug, 2012 [facility] [address] [id number] [address] [place] [address], [place] [address] 18 Aug, 2012 [facility] [address] [id number] [address] [place] [address], [place] [address] 18 Aug, 2012 [facility] [address] [id number] [address] [place] [address], [place] [address] 18 Aug, 2013 [facility] [address] [id number] [address] [place] [address], [place] [address] 18 Aug, 2013 [facility] [address] [id number] [address] [place] [address], [place] [address] 17 Aug, 2012 [facility] [address] [id number] [address] [place] [address], [place] [address] 14 Aug, 2013 [facility] [address] [id number] [address] [place] [address], [place] [address] 14 Aug, 2013 [facility] [address] [id number] [address] [place] [address], [place] [address] 01 Aug, 2013 [facility] [address] [id number] [address] [place] [address], [place] [address] 20 Jul, 2012 [facility] [address] [id number] [address] [place] [address], [place] [address] 19 Sep, 2012 [facility] [address] [id number] [address] [place] [address], [place] [address] 18 Sep, 2012 [facility] [address] [id number] [address] [place] [address], [place] [address] 11 Jul, 2012 [facility] [address] [id number] [address] [place] [address], [place] [address] Jul, [facility] [address] [id number] [address] [place] [address], [place] [address] Jun, [facility] [address] [id number] [address] [place] [address], [place] [address] Jun, [facility] [address] [id number] [address] [place] [address], [place] [address] Jun, [facility] [address] [id number] [address] [place] [address], [place] [address] Jun, [facility] [address] [id number] [address] [place] [address], [place] [address] Jun, [facility] [address] [id number] [address] [place] [address], [place] [address] Jun, [facility] [address] [id number] [address] [place] [address], [place] [address] Jun, [facility] [address] [id number] [address] [place] [address], [place] [address] Jun, [facility] [address] [id number] [address] [place] [address], [place] [address] Jun, [facility] [address] [id number] [address] [place] [address], [place] [address] Jun, [facility] [address] [id number] [address] [place] [address], [place] [address] May, [facility] [address] [id number] [address] [place] [address], [place] [address] May, [facility] [address] [id number] [address] [place] [address], [place] [address] May, [facility] [address] [id number] [address] [place] [address], [place] [address] May, [facility] [address] [id number] [address] [place] [address], [place] [address] May, [facility] [address] [id number] [address] [place] [address], [place] [address] 16 May, 2013 [facility] [address] [id number] [address] [place] [address], [place] [address] May, [facility] [address] [id number] [address] [place] [address], [place] [address] May, [facility] [address] [id number] [address] [place] [address], [place] [address] May, [facility] [address] [id number] [address] [place] [address], [place] [address] Apr, [facility] [address] [id number] [address] [place] [address], [place] [address] Apr, [facility] [address] [id number] [address] [place] [address], [place] [address] Apr, [facility] [address] [id number] [address] [place] [address], [place] [address] Apr, [facility] [address] [id number] [address] [place] [address], [place] [address] Apr, [facility] [address] [id number] [address] [place] [address], [place] [address] Apr, [facility] [address] [id number] [address] [place] [address], [place] [address] Apr, [facility] [address] [id number] [address] [place] [address], [place] [address] March, [facility] [address] [id number] [address] [place] [address], [place] [address] Feb, [facility] [address] [id number] [address] [place] [address], [place] [address] Feb, [facility] [address] [id number] [address] [place] [address], [place] [address] Feb, [facility] [address] [id number] [address] [place] [address], [place] [address] Jan, [facility] [address] [id number] [address] [place] [address], [place] [address] 21 Jan, 2013 [facility] [address] [id number] [address] [place] [address], [place] [address] 19 Jan, 2013 [facility] [address] [id number] [address] [place] [address], [place] [address] 14 Jan, 2013 [facility] [address] [id number] [address] [place] [address], [place] [address] 12 Jan, 2013 [facility] [address] [id number] [address] [place] [address], [place] [address] 08 Jan, 2013 [facility] [address] [id number] [address] [place] [address], [place] [address] 07 Jan, 2013 [facility] [address] [id number] [address] [place] [address], [place] [address] 04 Jan, 2013 [facility] [address] [id number] [address] [place] [address], [place] [address] 28 Dec, 2012 [facility] [address] [id number] [address] [place] [address], [place] [address] 25 Dec, 2012 [facility] [address] [id number] [address] [place] [address], [place] [address] 13 Dec, 2012 [facility] [address] [id number] [address] [place] [address], [place] [address] 11 Dec, 2012 [facility] [address] [id number] [address] [place] [address], [place] [address] 07 Dec, 2012 [facility] [address] [id number] [address] [place] [address], [place] [address] 06 Dec, 2012 [facility] [address] [id number] [address] [place] [address], [place] [address] 05 Dec, 2012 [facility] [address] [id number] [address] [place] [address], [place] [address] Nov, [facility] [address] [id number] [address] [place] [address], [place] [address] Nov, [facility] [address] [id number] [address] [place] [address], [place] [address] 18 Nov, 2012 [facility] [address] [id number] [address] [place] [address], [place] [address] 15 Nov, 2012 [facility] [address] [id number] [address] [place] [address], [place] [address] Nov, [facility] [address] [id number] [address] [place] [address], [place] [address] Nov, [facility] [address] [id number] [address] [place] [address], [place] [address] Nov, [facility] [address] [id number] [address] [place] [address], [place] [address] Oct, [facility] [address] [id number] [address] [place] [address], [place] [address] Oct, [facility] [address] [id number] [address] [place] [address], [place] [address] Oct, [facility] [address] [id number] [address] [place] [address], [place] [address] Oct, [facility] [address] [id number] [address] [place] [address], [place] [address] Oct, [facility] [address] [id number] [address] [place] [address], [place] [address] Oct, [facility] [address] [id number] [address] [place] [address], [place] [address] Oct, [facility] [address] [id number] [address] [place] [address], [place] [address] Oct, [facility] [address] [id number] [address] [place] [address], [place] [address] 05 Oct, 2012 [facility] [address] [id number] [address] [place] [address], [place] [address] 05 Oct, 2012 [facility] [address] [id number] [address] [place] [address], [place] [address] Oct, [facility] [address] [id number] [address] [place] [address], [place] [address] Oct, [facility] [address] [id number] [address] [place] [address], [place] [address] Sep, [facility] [address] [id number] [address] [place] [address], [place] [address] Sep, [facility] [address] [id number] [address] [place] [address], [place] [address] Sep, [facility] [address] [id number] [address] [place] [address], [place] [address] Sep, [facility] [address] [id number] [address] [place] [address], [place] [address] Sep, [facility] [address] [id number] [address] [place] [address], [place] [address] Sep, [facility] [address] [id number] [address] [place] [address], [place] [address] Sep, [facility] [address] [id number] [address] [place] [address], [place] [address] Sep, [facility] [address] [id number] [address] [place] [address], [place] [address] Sep, [facility] [address] [id number] [address] [place] [address], [place] [address] Sep, [facility] [address] [id number] [address] [place] [address], [place] [address] Sep, [facility] [address] [id number] [address] [place] [address], [place] [address] Aug, [facility] [address] [id number] [address] [place] [address], [place] [address] Aug, [facility] [address] [id number] [address] [place] [address], [place] [address] Aug, [facility] [address] [id number] [address] [place] [address], [place] [address] Aug, [facility] [address] [id number] [address] [place] [address], [place] [address] Aug, [facility] [address] [id number] [address] [place] [address], [place] [address] Aug, [facility] [address] [id number] [address] [place] [address], [place] [address] Aug, [facility] [address] [id number] [address] [place] [address], [place] [address] Aug, [facility] [address] [id number] [address] [place] [address], [place] [address] Aug, [facility] [address] [id number] [address] [place] [address], [place] [address] Aug, [facility] [address] [id number] [address] [place] [address], [place] [address] Jul, [facility] [address] [id number] [address] [place] [address], [place] [address] 20 Jul, 2012 [facility] [address] [id number] [address] [place] [address], [place] [address] 10 Jul, 2012 [facility] [address] [id number] [address] [place] [address], [place] [address] 06 Jul, 2012 [facility] [address] [id number] [address] [place] [address], [place] [address] 30 Jun, 2012 [facility] [address] [id number] [address] [place] [address], [place] [address] Jun, [facility] [address] [id number] [address] [place] [address], [place] [address] 16 Jun, 2012 [facility] [address] [id number] [address] [place] [address], [place] [address] Jun, [facility] [address] [id number] [address] [place] [address] [place] [address] Jun, [facility] [address] [id number] [address] [place] [address], [place] [address] Jun, [facility] [address] [id number] [address] [place] [address], [place] [address] Jun, [facility] [address] [id number] [address] [place] [address], [place] [address] May, [facility] [address] [id number] [address] [place] [address], [place] [address] May, [facility] [address] [id number] [address] [place] [address], [place] [address] May, [facility] [address] [id number] [address] [place] [address], [place] [address] May, [facility] [address] [id number] [address] [place] [address], [place] [address] May, [facility] [address] [id number] [address] [place] [address], [place] [address] Apr, [facility] [address] [id number] [address] [place] [address], [place] [address] Apr, [facility] [address] [id number] [address] [place] [address], [place] [address] Apr, [facility] [address] [id number] [address] [place] [address], [place] [address] Apr, [facility] [address] [id number] [address] [place] [address], [place] [address] Apr, [facility] [address] [id number] [address] [place] [address], [place] [address] March, [facility] [address] [id number] [address] [place] [address], [place] [address] March, [facility] [address] [id number] [address] [place] [address], [place] [address] March, [facility] [address] [id number] [address] [place] [address], [place] [address] March, [facility] [address] [id number] [address] [place] [address], [place] [address] March, [facility] [address] [id number] [address] [place] [address], [place] [address] March, [facility] [address] [id number] [address] [place] [address], [place] [address] March, [facility] [address] [id number] [address] [place] [address], [place] [address] March, [facility] [address] [id number] [address] [place] [address], [place] [address] March, [facility] [address] [id number] [address] [place] [address], [place] [address] March, [facility] [address] [id number] [address] [place] [address], [place] [address] 30 Feb, 2012 [facility] [address] [id number] [address] [place] [address], [place] [address] Feb, [facility] [address] [id number] [address] [place] [address], [place] [address] Feb, [facility] [address] [id number] [address] [place] [address], [place] [address] Feb, [facility] [address] [id number] [address] [place] [address], [place] [address] 17 Feb, 2012 [facility] [address] [id number] [address] [place] [address], [place] [address] Feb, [facility] [address] [id number] [address] [place] [address], [place] [address] Feb, [facility] [address] [id number] [address] [place] [address], [place] [address] Feb, [facility] [address] [id number] [address] [place] [address], [place] [address] Feb, [facility] [address] [id number] [address] [place] [address], [place] [address] Jan, [facility] [address] [id number] [address] [place] [address], [place] [address] Jan, [facility] [address] [id number] [address] [place] [address], [place] [address] Jan, [facility] [address] [id number] [address] [place] [address], [place] [address] Jan, [facility] [address] [id number] [address] [place] [address], [place] [address] Dec, [facility] [address] [id number] [address] [place] [address], [place] [address] Dec, [facility] [address] [id number] [address] [place] [address], [place] [address] Nov, [facility] [address] [id number] [address] [place] [address], [place] [address] Nov, [facility] [address] [id number] [address] [place] [address], [place] [address] Nov, [facility] [address] [id number] [address] [place] [address], [place] [address] Nov, [facility] [address] [id number] [address] [place] [address], [place] [address] Nov, [facility] [address] [id number] [address] [place] [address], [place] [address] Oct, [facility] [address] [id number] [address] [place] [address], [place] [address] Oct, [facility] [address] [id number] [address] [place] [address], [place] [address] Oct, [facility] [address] [id number] [address] [place] [address], [place] [address] Oct, [facility] [address] [id number] [address] [place] [id number] Oct, [facility] [address] [facility] [id number] [address] [place] [id number] Oct, [facility] [address] [facility] [id number] [address] [place] [id number] Oct, [facility] [address] [facility] [id number] [address] [place] [id number] Oct, [facility] [address] [facility] [id number] [address] [place] [id number] Sep, IMMUNIZATIONS No Known Immunizations SOCIAL HISTORY Never Assessed REASON FOR VISIT PLAN OF CARE VITAL SIGNS Weight 193 lbs 2014-07-29 Temperature 99 degrees Fahrenheit 2014-07-29 Heart Rate 80 bpm 2014-07-29 Respiratory Rate 28 2014-07-29 Blood pressure systolic 142 mmHg 2014-07-29 Blood pressure diastolic 78 mmHg 2014-07-29 MEDICATIONS Unknown Medications RESULTS No Results PROCEDURES [...] History No Surgical history information Hospitalization History [facility]- Urosepsis, ab d pain and fever, discharged 11/27/2017 11/26/2017 Hospitalization History [facility]- Went Unrepsonsive, Hit head 2017 Hospitalization History [facility]- Back Pain 8
--- OUTSIDE RECORDS SUMMARY | 2020-06-18 14:44 | XMS REPORT ---
Author Author Sanjuanita JOHNSON [facility] Address [address] [place] [address] Care Team Providers Care Staff Home Therapy Rn Name Role Phone SHARIF JOHNSON Unavailable PROBLEMS Type Condition ICD9-CM Code [id number] Code Onset Dates Condition S tatus SNOMED Code Problem Hypertension I10 Active 3130240 3 Problem Hyperlipidemia E78.5 Active 33036 004 Problem Coronary artery disease I25.10 Active 08287978 Problem Low back pain M54.5 Active 824961 009 Problem Other chronic pain G89.29 Active 8 6535643 Problem Ventral hernia without obstruction or gangrene K43 .9 Active 628566789 Problem Type 2 diabetes mellitus wit hout complication, without long-term current use of insulin E11.9 Active 802138848 Problem Anxiety F41.9 Active 05366819 Problem Peripheral vascular disease I73.9 Ac tive 777891733 Problem Insomnia G47.00 Active 062750701 Problem Microcytic anemia D50.9 Active 23 5530712 Problem Pharyngeal dysphagia R13.13 Active [id number] Problem Other iron deficiency anemia D50.8 A ctive 58957289 Problem Reactive depression F32.9 Active 97108199 Problem Paroxysmal atrial fibrillation I48.0 Active 060525045 Problem 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 Active 16509869 Problem Encounter for suprapubic catheter care Z43.5 Active 021027659 Problem Neurogenic bladder N31.9 Active 3 41004874 ALLERGIES No Information ENCOUNTERS Encounter Location Date Diagnosis [facility] [address] [facility] [id number] [address] [place] [id number] Jan, Anxiety F41.9 and Strain of right shoulder, subsequent encounter S46.911D [facility] [address] [facility] [id number] [address] [place] [phone] Jan, Via [facility] [address] [place] [id number] Jan, Neurogenic bladder N31.9 [place] [address] [id number] [address] [place] [phone] Dec, [place] [address] [id number] [address] [place] [id number] Dec, [place] [address] [id number] [address] [place] [phone] Dec, Anxiety F41.9 and Strain of right shoulder, subsequent encounter S46.911D [place] [address] [id number] [address] [place] [id number] 10 Dec, 2019 Other iron deficiency anemia D50.8 [place] [address] [id number] [address] [place] [phone] 04 Dec, 2019 Via [facility] [address] [place] [id number] Dec, Encounter for suprapubic catheter care Z 43.5 and Microcytic anemia D50.9 [place] [address] [id number] [address] [place] [phone] Dec, [place] [address] [id number] [address] [place] [id number] Nov, Anxiety F41.9 and Strain of right shoulder, subsequent encounter S46.911D [place] [address] [id number] [address] [place] [phone] Nov, Hypertension I10 Via [facility] [address] [place] [id number] Nov, Pneumonia of both lungs due to infectiou s organism, unspecified part of lung J18.9 and Suprapubic catheter Z93.59 [place] [address] [id number] [address] [place] [id number] Nov, Hypertension I10 and Reactiv e depression F32.9 [place] [address] [id number] [address] [place] [phone] Oct, Strain of right shoulder, scherer bsequent encounter S46.911D and Anxiety F41.9 [facility] [address] [id number] [address] [place] [phone] Oct, Via [employer] [address] [place] [id number] Oct, Suprapubic catheter Z93.59 and Candidias is, intertriginous B37.2 [facility] [address] [id number] [address] [place] [id number] Oct, Suprapubic catheter Z93.59 [facility] [address] [id number] [address] [place] [id number] Oct, Anxiety F41.9 and Strain of right shoulder, subsequent encounter S46.911D [facility] [address] [id number] [address] [place] [id number] Sep, [facility] [address] [id number] [address] [place] [phone] Sep, [facility] [address] [id number] [address] [place] [phone] Sep, Via [employer] [address] [place] [id number] Sep, Suprapubic catheter Z93.59 [facility] [address] [id number] [address] [place] [phone] Sep, Anxiety F41.9 and Strain of right shoulder, subsequent encounter S46.911D [facility] [address] [id number] [address] [place] [id number] Aug, [facility] [address] [id number] [address] [place] [phone] Aug, [facility] [address] [id number] [address] [place] [id number] Aug, Anxiety F41.9 and Strain of right shoulder, subsequent encounter S46.911D Via [employer] [address] [place] [id number] Aug, Suprapubic catheter Z93.59 [facility] [address] [id number] [address] [place] [id number] Jul, Strain of right shoulder, scherer bsequent encounter S46.911D and Anxiety F41.9 [facility] [address] [id number] [address] [place] [phone] Jul, Anxiety F41.9 [facility] [address] [id number] [address] [place] [phone] Jun, [facility] [address] [id number] [address] [place] [phone] Jun, [facility] [address] [id number] [address] [place] [phone] Jun, [facility] [address] [id number] [address] [place] [id number] Jun, Strain of right shoulder, scherer bsequent encounter S46.911D [facility] [address] [id number] [address] [place] [id number] Jun, Strain of right shoulder, scherer bsequent encounter S46.911D [facility] [address] [id number] [address] [place] [phone] Jun, Anxiety F41.9 Via [facility] [address] [place] [id number] Jun, Neurogenic bladder N31.9 and Anxiety F41 .9 Via [facility] [address] [place] [id number] May, Anxiety F41.9 [facility] [address] [id number] [address] [place] [id number] May, Dysuria R30.0 [facility] [address] [id number] [address] [place] [id number] May, Strain of right shoulder, scherer bsequent encounter S46.911D and Anxiety F41.9 [place] [address] [id number] [address] [place] [id number] 27 Apr, 2019 Via [facility] [employer] [address] [place] [id number] Apr, Strain of right shoulder, subsequent enc ounter S46.911D [place] [address] [id number] [address] [place] [id number] 14 Apr, 2019 Strain of right shoulder, scherer bsequent encounter S46.911D and Anxiety F41.9 [facility] [employer] [address] [place] [id number] 13 Apr, 2019 Type 2 diabetes mellitus without complic ation, without long-term current use of insulin E11.9 and Neurogenic bladder N31.9 Via [facility] [address] [place] [id number] 11 Apr, 2019 Strain of right shoulder, subsequent enc ounter S46.911D ; History of GI bleed Z87.19 ; Neurogenic bladder N31.9 and Reactive depression F32.9 [place] [address] [id number] [address] [place] [id number] 10 Apr, 2019 Acute pain of left shoulder M25.512 [place] [address] [id number] [address] [place] [id number] 07 Apr, 2019 [place] [address] [id number] [address] [place] [phone] Apr, Anxiety F41.9 and 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 [facility] [address] [place] [id number] March, Gastrointestinal hemorrhage associated w ith acute gastritis K29.01 [place] [address] [id number] [address] [place] [phone] March, [facility] [address] [place] [id number] March, Bronchitis J40 [place] [address] [id number] [address] [place] [id number] March, Cough R05 [facility] [address] [id number] [address] [place] [phone] March, Other chronic pain G89.29 [facility] [address] [id number] [address] [place] [id number] March, Anxiety F41.9 [facility] [address] [id number] [address] [place] [phone] March, [facility] [address] [id number] [address] [place] [phone] Feb, Other chronic pain G89.29 [facility] [address] [id number] [address] [place] [phone] Feb, Anxiety F41.9 [facility] [address] [id number] [address] [place] [id number] Feb, Other chronic pain G89.29 [facility] [address] [place] [id number] Feb, Neurogenic bladder N31.9 and Suprapubic catheter Z93.59 [facility] [address] [id number] [address] [place] [phone] Jan, Anxiety F41.9 [facility] [address] [id number] [address] [place] [id number] Dec, Anxiety F41.9 [facility] [address] [id number] [address] [place] [id number] Dec, Other chronic pain G89.29 an d Anxiety F41.9 [facility] [address] [id number] [address] [place] [phone] Dec, Via [facility] [address] [place] [id number] Dec, Neurogenic bladder N31.9 and Suprapubic catheter Z93.59 [facility] [address] [id number] [address] [place] [id number] Nov, Other chronic pain G89.29 an d Anxiety F41.9 [facility] [address] [id number] [address] [place] [phone] Nov, Via [employer] [address] [place] [id number] Nov, Suprapubic catheter Z93.59 [facility] [address] [id number] [address] [place] [id number] Oct, Other chronic pain G89.29 an d Anxiety F41.9 [facility] [address] [id number] [address] [place] [id number] Oct, [facility] [address] [id number] [address] [place] [phone] Oct, Suprapubic catheter Z93.59 [facility] [address] [id number] [address] [place] [phone] Oct, Via [employer] [facility] [address] [place] [id number] Oct, [facility] [address] [id number] [address] [place] [id number] Oct, Anxiety F41.9 [facility] [address] [id number] [address] [place] [id number] Oct, Anxiety F41.9 [facility] [address] [place] [id number] Oct, Other chronic pain G89.29 [facility] [address] [id number] [address] [place] [id number] Sep, Other chronic pain G89.29 [facility] [employer] [address] [place] [id number] Sep, Suprapubic catheter Z93.59 and Cervicalg ia M54.2 [facility] [address] [id number] [address] [place] [phone] Sep, [facility] [address] [id number] [address] [place] [phone] Sep, [facility] [address] [id number] [address] [place] [phone] Sep, Via [employer] [address] [place] [id number] Aug, Cystitis N30.90 [facility] [address] [id number] [address] [place] [id number] Aug, [facility] [address] [id number] [address] [place] [id number] Aug, Other chronic pain G89.29 [facility] [address] [id number] [address] [place] [phone] Aug, Via [employer] [address] [place] [id number] Aug, Encounter for suprapubic catheter care Z 43.5 [facility] [address] [id number] [address] [place] [phone] Jul, Via [employer] [address] [place] [id number] Jul, [facility] [address] [id number] [address] [place] [id number] Jul, Other chronic pain G89.29 [facility] [address] [id number] [address] [place] [phone] Jul, [facility] [address] [id number] [address] [place] [phone] Jul, Via [employer] [address] [place] [id number] Jun, 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 [facility] [address] [id number] [address] [place] [phone] Jun, Other chronic pain G89.29 [facility] [address] [id number] [address] [place] [phone] Jun, Via [employer] [address] [place] [id number] May, Anxiety F41.9 ; Type 2 diabetes mellitus without complication, without long-term current use of insulin E11.9 ; Hypertension I10 ; Low back pain M54.5 ; Paroxysmal atrial fibrillation I48.0 and 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 [facility] [address] [id number] [address] [place] [phone] May, Other chronic pain G89.29 Via [employer] [address] [place] [id number] May, Low back pain M54.5 [place] [address] [id number] [address] [place] [id number] May, [place] [address] [id number] [address] [place] [id number] Apr, Other chronic pain G89.29 [place] [address] [id number] [address] [place] [id number] Apr, [facility] [address] [id number] [address] [place] [phone] Apr, Via [employer] [address] [place] [id number] Apr, Closed compression fracture of L3 lumbar vertebra with routine healing, subsequent encounter S32.030D [facility] [employer] [address] [place] [id number] Apr, Low back pain M54.5 [facility] [employer] [address] [place] [id number] Apr, Coccydynia M53.3 [facility] [address] [id number] [address] [place] [id number] March, [facility] [address] [id number] [address] [place] [id number] March, Other chronic pain G89.29 [facility] [address] [id number] [address] [place] [id number] March, [facility] [address] [id number] [address] [place] [phone] March, [facility] [address] [id number] [address] [place] [id number] Feb, [facility] [address] [id number] [address] [place] [id number] Feb, Other chronic pain G89.29 [facility] [address] [place] [id number] Feb, Other chronic pain G89.29 and Anxiety F4 1.9 [facility] [address] [id number] [address] [place] [id number] Feb, [facility] [address] [id number] [address] [place] [phone] Jan, [facility] [address] [id number] [address] [place] [id number] Jan, [facility] [address] [id number] [address] [place] [id number] Jan, [facility] [address] [id number] [address] [place] [phone] Jan, [facility] [address] [id number] [address] [place] [phone] Dec, [facility] [address] [place] [id number] Dec, Peripheral vascular disease I73.9 ; 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 ; Other chronic pain G89.29 ; Anxiety F41.9 ; Reactive depression F32.9 ; Insomnia G47.00 and Type 2 diabetes mellitus without complication, without long-term current use of insulin E11.9 [facility] [place] [address] [id number] [place] [address] Nov, [facility] [address] [id number] [place] [id number] Nov, Anxiety F41.9 [facility] [address] [id number] [address] [place] [id number] Nov, [facility] [address] [id number] [place] [id number] Nov, Anxiety F41.9 [facility] [address] [place] [id number] Nov, Status post surgery Z98.890 ; Confused R 41.0 ; Anxiety F41.9 and Other chronic pain G89.29 [facility] [address] [id number] [place] [id number] Nov, Other chronic pain G89.29 [facility] [address] [id number] [address] [place] [phone] Oct, [facility] [address] [id number] [place] [id number] Oct, Other chronic pain G89.29 [facility] [address] [id number] [address] [place] [id number] Oct, Anxiety F41.9 [facility] [address] [id number] [place] [id number] Sep, Other chronic pain G89.29 [facility] [address] [id number] [place] [id number] Sep, [facility] [employer] [facility] [address] [place] [id number] Aug, Dysuria R30.0 and Anxiety F41.9 [facility] [address] [id number] [address] [place] [phone] Aug, [facility] [address] [id number] [place] [id number] Aug, Other chronic pain G89.29 [facility] [address] [facility] [id number] [address] [place] [phone] Jul, Other chronic pain G89.29 [facility] [address] [id number] [place] [id number] Jun, [facility] [address] [id number] [place] [id number] Jun, Other chronic pain G89.29 [facility] [address] [id number] [address] [place] [id number] Jun, [facility] [address] [id number] [address] [place] [phone] May, Other chronic pain G89.29 [facility] [address] [id number] [address] [place] [id number] Apr, Other chronic pain G89.29 [facility] [address] [place] [id number] Apr, Reactive depression F32.9 and Pharyngeal dysphagia R13.13 [facility] [address] [id number] [address] [place] [id number] Apr, Urinary tract infection with out hematuria, site unspecified N39.0 [facility] [address] [id number] [address] [place] [id number] March, Other chronic pain G89.29 [facility] [address] [id number] [address] [place] [id number] Feb, Other chronic pain G89.29 [facility] [address] [id number] [address] [place] [phone] Feb, [facility] [address] [id number] [place] [id number] Feb, Via [employer] [address] [place] [id number] Feb, Dysuria R30.0 and Ventral hernia without obstruction or gangrene K43.9 [facility] [address] [id number] [address] [place] [id number] Jan, Other chronic pain G89.29 [facility] [address] [id number] [id number] Dec, Other chronic pain G89.29 [facility] [address] [id number] [address] [place] [id number] Nov, Other chronic pain G89.29 [facility] [address] [place] [id number] Nov, Lymphadenitis I88.9 [facility] [address] [id number] [address] [place] [id number] Nov, Other chronic pain G89.29 [facility] [address] [id number] [address] [place] [id number] Nov, [facility] [id number] [place] [id number] Nov, Other chronic pain G89.29 [facility] [address] [place] [id number] Oct, Low back pain M54.5 ; Hypertension I10 a nd Type 2 diabetes mellitus without complication, without long-term current use of insulin E11.9 [facility] [address] [id number] [address] [place] [phone] Oct, [facility] [address] [id number] [address] [place] [id number] Oct, [facility] [address] [id number] [address] [place] [phone] Oct, [facility] [address] [id number] [address] [place] [phone] Oct, [facility] [address] [id number] [address] [place] [phone] Sep, [facility] [address] [id number] [address] [place] [phone] Sep, [facility] [address] [id number] [address] [place] [id number] Aug, Other chronic pain G89.29 [facility] [address] [id number] [address] [place] [phone] Jul, [facility] [address] [id number] [address] [place] [id number] Jul, [facility] [address] [id number] [address] [place] [phone] Jul, [facility] [address] [id number] [address] [place] [phone] Jun, [facility] [address] [id number] [address] [place] [phone] Jun, [facility] [address] [place] [id number] Jun, Low back pain M54.5 ; Other chronic pain G89.29 and Coronary artery disease I25.10 [facility] [address] [id number] [address] [place] [phone] Jun, [facility] [address] [id number] [address] [place] [phone] May, [facility] [address] [id number] [address] [place] [phone] May, [facility] [address] [id number] [address] [place] [id number] May, Other chronic pain G89.29 [facility] [address] [id number] [address] [place] [phone] May, [facility] [address] [id number] [address] [place] [phone] Apr, [facility] [address] [id number] [address] [place] [id number] Apr, Acute cystitis without hemat uria N30.00 [facility] [address] [address] [id number] [address] [place] [id number] Apr, Acute cystitis without hemat uria N30.00 ; Coronary artery disease I25.10 ; Low back pain M54.5 and Other chronic pain G89.29 [facility] [address] [id number] [address] [place] [address] Apr, Other chronic pain G89.29 [facility] [address] [id number] [address] [place] [phone] March, Other chronic pain G89.29 [facility] [address] [id number] [address] [place] [id number] Feb, [facility] [address] [id number] [address] [place] [id number] Feb, Arthritis M19.90 [facility] [address] [id number] [address] [place] [id number] Feb, [facility] [address] [id number] [address] [place] [id number] Jan, [facility] [address] [id number] [address] [place] [id number] Jan, [facility] [address] [id number] [address] [place] [id number] Jan, Other chronic pain G89.29 [facility] [address] [id number] [address] [place] [id number] Jan, Hypertension I10 ; Coronary artery disease I25.10 and Insomnia G47.00 [facility] [address] [id number] [address] [place] [id number] Jan, [facility] [address] [id number] [address] [place] [id number] Dec, Right hip pain M25.551 [facility] [address] [id number] [address] [place] [phone] Dec, [facility] [address] [id number] [address] [place] [id number] Dec, [facility] [address] [id number] [address] [place] [id number] Dec, [facility] [address] [id number] [address] [place] [phone] Dec, Other chronic pain G89.29 [facility] [address] [id number] [address] [place] [id number] Dec, [facility] [address] [id number] [address] [place] [phone] Nov, [facility] [address] [id number] [address] [place] [id number] Nov, Other chronic pain G89.29 [facility] [address] [id number] [address] [place] [phone] Nov, Right hip pain M25.551 and C oronary artery disease I25.10 [facility] [address] [id number] [address] [place] [id number] Nov, Other chronic pain G89.29 [facility] [address] [id number] [address] [place] [id number] Oct, [facility] [address] [facility] [id number] [address] [place] [phone] Oct, [facility] [address] [facility] [id number] [address] [place] [phone] Sep, [facility] [address] [id number] [address] [place] [phone] Sep, [facility] [address] [facility] [id number] [address] [place] [phone] Aug, [facility] [address] [facility] [id number] [address] [place] [id number] Aug, Hypertension I10 ; Coronary artery disease I25.10 and Arthritis M19.90 [facility] [address] [id number] [address] [place] [phone] Jun, [facility] [address] [id number] [address] [place] [address], [place] [address] Jun, Essential hypertension, jayson gn 401.1 ; Other chronic pain 338.29 and Chronic airway obstruction, not elsewhere classified 496 [facility] [address] [id number] [address] [place] [address], [place] [address] Jun, [facility] [address] [id number] [address] [place] [address], [place] [address] Jun, [facility] [address] [id number] [address] [place] [address], [place] [address] Jun, [facility] [address] [id number] [address] [place] [address], [place] [address] May, [facility] [address] [id number] [address] [place] [address], [place] [address] May, [facility] [address] [id number] [address] [place] [address], [place] [address] Apr, [facility] [address] [id number] [address] [place] [phone] Apr, [facility] [address] [id number] [address] [place] [address], [place] [address] Apr, [facility] [address] [id number] [address] [place] [phone] March, [facility] [address] [id number] [address] [place] [id number] March, [facility] [address] [id number] [address] [place] [phone] March, [facility] [address] [id number] [address] [place] [id number] March, [facility] [address] [id number] [address] [place] [id number] March, Sialadenitis 527.2 [facility] [address] [id number] [address] [place] [phone] Feb, [facility] [address] [id number] [address] [place] [address], [place] [address] Feb, [facility] [address] [id number] [address] [place] [address], [place] [address] Feb, [facility] [address] [id number] [address] [place] [address], [place] [address] Feb, [facility] [address] [id number] [address] [place] [address], [place] [address] Feb, [facility] [address] [id number] [address] [place] [address], [place] [address] Jan, [facility] [address] [id number] [address] [place] [address], [place] [address] Jan, [facility] [address] [id number] [address] [place] [address], [place] [address] Jan, [facility] [address] [id number] [address] [place] [address], [place] [address] Jan, [facility] [address] [id number] [address] [place] [address], [place] [address] Jan, [facility] [address] [id number] [address] [place] [address], [place] [address] Jan, [facility] [address] [id number] [address] [place] [address], [place] [address] Dec, 2014 [facility] [address] [id number] [address] [place] [address], [place] [address] Dec, 2014 [facility] [address] [id number] [address] [place] [address], [place] [address] Dec, 2014 [facility] [address] [id number] [address] [place] [address], [place] [address] Dec, 2014 [facility] [address] [id number] [address] [place] [address], [place] [address] Dec, 2014 [facility] [address] [id number] [address] [place] [address], [place] [address] Dec, [facility] [address] [id number] [address] [place] [address], [place] [address] Nov, [facility] [address] [id number] [address] [place] [address], [place] [address] Nov, [facility] [address] [id number] [address] [place] [address], [place] [address] Nov, [facility] [address] [id number] [address] [place] [address], [place] [address] Nov, [facility] [address] [id number] [address] [place] [address], [place] [address] Nov, [facility] [address] [id number] [address] [place] [address], [place] [address] Nov, [facility] [address] [id number] [address] [place] [address], [place] [address] Nov, [facility] [address] [id number] [address] [place] [address], [place] [address] Nov, [facility] [address] [id number] [address] [place] [address], [place] [address] Nov, [facility] [address] [id number] [address] [place] [address], [place] [address] Nov, [facility] [address] [id number] [address] [place] [address], [place] [address] Nov, [facility] [address] [id number] [address] [place] [address], [place] [address] Nov, [facility] [address] [id number] [address] [place] [address], [place] [address] Nov, [facility] [address] [id number] [address] [place] [address], [place] [address] Nov, [facility] [address] [id number] [address] [place] [address], [place] [address] Oct, [facility] [address] [id number] [address] [place] [address], [place] [address] Oct, [facility] [address] [id number] [address] [place] [address], [place] [address] Oct, [facility] [address] [id number] [address] [place] [address], [place] [address] 18 Oct, 2014 [facility] [address] [id number] [address] [place] [address], [place] [address] Oct, [facility] [address] [id number] [address] [place] [address], [place] [address] Oct, [facility] [address] [id number] [address] [place] [address], [place] [address] Oct, [facility] [address] [id number] [address] [place] [address], [place] [address] Oct, [facility] [address] [id number] [address] [place] [address], [place] [address] Oct, [facility] [address] [id number] [address] [place] [address], [place] [address] Sep, [facility] [address] [id number] [address] [place] [address], [place] [address] Sep, [facility] [address] [id number] [address] [place] [address], [place] [address] Sep, [facility] [address] [id number] [address] [place] [address], [place] [address] Sep, [facility] [address] [id number] [address] [place] [address], [place] [address] Sep, [facility] [address] [id number] [address] [place] [address], [place] [address] Sep, [facility] [address] [id number] [address] [place] [address], [place] [address] Sep, [facility] [address] [id number] [address] [place] [address], [place] [address] Sep, [facility] [address] [id number] [address] [place] [address], [place] [address] Sep, [facility] [address] [id number] [address] [place] [address], [place] [address] Sep, [facility] [address] [id number] [address] [place] [address], [place] [address] Sep, [facility] [address] [id number] [address] [place] [address], [place] [address] Sep, [facility] [address] [id number] [address] [place] [address], [place] [address] Aug, [facility] [address] [id number] [address] [place] [address], [place] [address] Aug, [facility] [address] [id number] [address] [place] [address], [place] [address] Aug, [facility] [address] [id number] [address] [place] [address], [place] [address] Aug, [facility] [address] [id number] [address] [place] [address], [place] [address] Aug, [facility] [address] [id number] [address] [place] [address], [place] [address] Aug, [facility] [address] [id number] [address] [place] [address], [place] [address] Aug, [facility] [address] [id number] [address] [place] [address], [place] [address] Aug, [facility] [address] [id number] [address] [place] [address], [place] [address] 30 Jul, 2014 [facility] [address] [id number] [address] [place] [address], [place] [address] 30 Jul, 2014 [facility] [address] [id number] [address] [place] [address], [place] [address] 30 Jul, 2014 [facility] [address] [id number] [facility] [place] [address] 30 Jul, 2013 [facility] [address] [id number] [facility] [place] [address] 25 Jul, 2013 [facility] [address] [id number] [facility] [place] [address] 25 Jul, 2013 [facility] [address] [id number] [facility] [place] [address] 15 Jul, 2014 [facility] [address] [id number] [address] [place] [address], [place] [address] 15 Jul, 2014 [facility] [address] [id number] [address] [place] [address], [place] [address] Jul, [facility] [address] [id number] [address] [place] [address], [place] [address] Jul, [facility] [address] [id number] [address] [place] [address], [place] [address] Jun, [facility] [address] [id number] [address] [place] [address], [place] [address] Jun, [facility] [address] [id number] [address] [place] [address], [place] [address] Jun, [facility] [address] [id number] [address] [place] [address], [place] [address] Jun, [facility] [address] [id number] [address] [place] [address], [place] [address] Jun, [facility] [address] [id number] [address] [place] [address], [place] [address] Jun, [facility] [address] [id number] [address] [place] [address], [place] [address] Jun, [facility] [address] [id number] [address] [place] [address], [place] [address] Jun, [facility] [address] [id number] [address] [place] [address], [place] [address] Jun, [facility] [address] [id number] [facility] [place] [address] Jun, [facility] [address] [id number] [address] [place] [address], [place] [address] Jun, [facility] [address] [id number] [address] [place] [address], [place] [address] Jun, [facility] [address] [id number] [address] [place] [address], [place] [address] Jun, [facility] [address] [id number] [address] [place] [address], [place] [address] Jun, [facility] [address] [id number] [address] [place] [address], [place] [address] Jun, [facility] [address] [id number] [address] [place] [address], [place] [address] Jun, [facility] [address] [id number] [address] [place] [address], [place] [address] Jun, [facility] [address] [id number] [address] [place] [address], [place] [address] Jun, [facility] [address] [id number] [address] [place] [address], [place] [address] Jun, [facility] [address] [id number] [address] [place] [address], [place] [address] Jun, [facility] [address] [id number] [address] [place] [address], [place] [address] Jun, [facility] [address] [id number] [address] [place] [address], [place] [address] Jun, [facility] [address] [id number] [address] [place] [address], [place] [address] May, [facility] [address] [id number] [address] [place] [address], [place] [address] May, [facility] [address] [id number] [facility] [place] [address] May, [facility] [address] [id number] [facility] [place] [address] May, [facility] [address] [id number] [facility] [place] [address] May, [facility] [address] [id number] [address] [place] [address], [place] [address] May, 2013 [facility] [address] [id number] [address] [place] [address], [place] [address] May, 2013 [facility] [address] [id number] [address] [place] [address], [place] [address] May, [facility] [address] [id number] [address] [place] [address], [place] [address] May, [facility] [address] [id number] [address] [place] [address], [place] [address] May, [facility] [address] [id number] [address] [place] [address], [place] [address] May, [facility] [address] [id number] [address] [place] [address], [place] [address] May, [facility] [address] [id number] [address] [place] [address], [place] [address] May, [facility] [address] [id number] [address] [place] [address], [place] [address] Apr, [facility] [address] [id number] [address] [place] [address], [place] [address] Apr, [facility] [address] [id number] [address] [place] [address], [place] [address] Apr, [facility] [address] [id number] [address] [place] [address], [place] [address] Apr, [facility] [address] [id number] [address] [place] [address], [place] [address] Apr, [facility] [address] [id number] [address] [place] [address], [place] [address] Apr, [facility] [address] [id number] [address] [place] [address], [place] [address] Apr, [facility] [address] [id number] [address] [place] [address], [place] [address] Apr, [facility] [address] [id number] [address] [place] [address], [place] [address] Apr, [facility] [address] [id number] [address] [place] [address], [place] [address] March, [facility] [address] [id number] [address] [place] [address], [place] [address] March, [facility] [address] [id number] [address] [place] [address], [place] [address] March, [facility] [address] [id number] [address] [place] [address], [place] [address] March, [facility] [address] [id number] [address] [place] [address], [place] [address] March, [facility] [address] [id number] [address] [place] [address], [place] [address] March, [facility] [address] [id number] [address] [place] [address], [place] [address] March, [facility] [address] [id number] [address] [place] [address], [place] [address] March, [facility] [address] [id number] [address] [place] [address], [place] [address] March, [facility] [address] [id number] [address] [place] [address], [place] [address] March, [facility] [address] [id number] [address] [place] [address], [place] [address] March, [facility] [address] [id number] [address] [place] [address], [place] [address] March, [facility] [address] [id number] [address] [place] [address], [place] [address] March, [facility] [address] [id number] [address] [place] [address], [place] [address] March, [facility] [address] [id number] [address] [place] [address], [place] [address] March, [facility] [address] [id number] [address] [place] [address], [place] [address] March, [facility] [address] [id number] [address] [place] [address], [place] [address] March, [facility] [address] [id number] [address] [place] [address], [place] [address] March, [facility] [address] [id number] [address] [place] [address], [place] [address] March, [facility] [address] [id number] [address] [place] [address], [place] [address] March, [facility] [address] [id number] [address] [place] [address], [place] [address] Feb, [facility] [address] [id number] [address] [place] [address], [place] [address] Feb, [facility] [address] [id number] [address] [place] [address], [place] [address] Feb, [facility] [address] [id number] [address] [place] [address], [place] [address] Feb, [facility] [address] [id number] [address] [place] [address], [place] [address] Feb, [facility] [address] [id number] [address] [place] [address], [place] [address] Feb, [facility] [address] [id number] [address] [place] [address], [place] [address] Feb, [facility] [address] [id number] [facility] [place] [address] 11 Feb, 2014 [facility] [address] [id number] [facility] [place] [address] Jan, [facility] [address] [id number] [facility] [place] [address] Jan, [facility] [address] [id number] [address] [place] [address], [place] [address] Jan, [facility] [address] [id number] [address] [place] [address], [place] [address] Jan, [facility] [address] [id number] [address] [place] [address], [place] [address] Jan, [facility] [address] [id number] [address] [place] [address], [place] [address] Jan, [facility] [address] [id number] [address] [place] [address], [place] [address] Jan, [facility] [address] [id number] [address] [place] [address], [place] [address] Jan, [facility] [address] [id number] [address] [place] [address], [place] [address] Jan, [facility] [address] [id number] [address] [place] [address], [place] [address] Jan, [facility] [address] [id number] [address] [place] [address], [place] [address] Dec, [facility] [address] [id number] [address] [place] [address], [place] [address] Dec, [facility] [address] [id number] [address] [place] [address], [place] [address] Dec, [facility] [address] [id number] [address] [place] [address], [place] [address] [address] [facility] [address] [id number] [address] [place] [address] [address] [address] [facility] [address] [id number] [address] [place] [address], [place] [address] Dec, [facility] [address] [id number] [address] [place] [address], [place] [address] Dec, [facility] [address] [id number] [address] [place] [address], [place] [address] Dec, [facility] [address] [id number] [address] [place] [address], [place] [address] Nov, [facility] [address] [id number] [address] [place] [address], [place] [address] Nov, [facility] [address] [id number] [address] [place] [address], [place] [address] Nov, [facility] [address] [id number] [address] [place] [place] [address], [place] [address] Nov, [facility] [address] [id number] [address] [place] [address], [place] [address] Nov, [facility] [address] [id number] [address] [place] [address], [place] [address] Nov, [facility] [address] [id number] [address] [place] [address], [place] [address] Nov, [facility] [address] [id number] [address] [place] [address], [place] [address] Nov, [facility] [address] [id number] [address] [place] [address], [place] [address] Nov, [facility] [address] [id number] [address] [place] [address], [place] [address] Nov, [facility] [address] [id number] [address] [place] [address], [place] [address] Nov, [facility] [address] [id number] [address] [place] [address], [place] [address] Nov, [facility] [address] [id number] [address] [place] [address], [place] [address] 15 Nov, 2013 [facility] [address] [id number] [address] [place] [address], [place] [address] 30 Oct, 2013 [facility] [address] [id number] [address] [place] [address], [place] [address] Oct, [facility] [address] [id number] [address] [place] [address], [place] [address] Oct, [facility] [address] [id number] [address] [place] [address], [place] [address] Oct, [facility] [address] [id number] [address] [place] [address], [place] [address] Oct, [facility] [address] [id number] [address] [place] [address], [place] [address] Oct, [facility] [address] [id number] [address] [place] [address], [place] [address] Oct, [facility] [address] [id number] [address] [place] [address], [place] [address] 18 Oct, 2013 [facility] [address] [id number] [address] [place] [address], [place] [address] Oct, [facility] [address] [id number] [address] [place] [address], [place] [address] 17 Oct, 2013 [facility] [address] [id number] [address] [place] [address], [place] [address] Oct, [facility] [address] [id number] [address] [place] [address], [place] [address] Oct, [facility] [address] [id number] [address] [place] [address], [place] [address] Oct, [facility] [address] [id number] [address] [place] [address], [place] [address] Oct, [facility] [address] [id number] [address] [place] [address], [place] [address] Sep, [facility] [address] [id number] [address] [place] [address], [place] [address] 14 Sep, 2013 [facility] [address] [id number] [address] [place] [address], [place] [address] Sep, [facility] [address] [id number] [address] [place] [address], [place] [address] Sep, [facility] [address] [id number] [address] [place] [address], [place] [address] Sep, [facility] [address] [id number] [address] [place] [address], [place] [address] Sep, [facility] [address] [id number] [address] [place] [address], [place] [address] Sep, [facility] [address] [id number] [address] [place] [address], [place] [address] Sep, [facility] [address] [id number] [address] [place] [address] Sep, [facility] [address] [id number] [address] [place] [address], [place] [address] Sep, [facility] [address] [id number] [address] [place] [address] Aug, [facility] [address] [id number] [address] [place] [id number] Aug, [facility] [address] [id number] [address] [place] [address] Aug, [facility] [address] [id number] [address] [place] [address] Aug, [facility] [address] [id number] [address] [place] [id number] Aug, [facility] [address] [id number] [address] [place] [id number] Aug, [facility] [address] [id number] [address] [place] [address], [place] [address] 23 Aug, 2012 [facility] [address] [id number] [address] [place] [address], [place] [address] 23 Aug, 2012 [facility] [address] [id number] [address] [place] [address], [place] [address] 22 Aug, 2012 [facility] [address] [id number] [address] [place] [address], [place] [address] 22 Aug, 2012 [facility] [address] [id number] [address] [place] [address], [place] [address] 18 Aug, 2012 [facility] [address] [id number] [address] [place] [address], [place] [address] 18 Aug, 2012 [facility] [address] [id number] [address] [place] [address], [place] [address] 18 Aug, 2012 [facility] [address] [id number] [address] [place] [address], [place] [address] 18 Aug, 2012 [facility] [address] [id number] [address] [place] [address], [place] [address] 17 Aug, 2012 [facility] [address] [id number] [address] [place] [address], [place] [address] 14 Aug, 2013 [facility] [address] [id number] [address] [place] [address], [place] [address] 14 Aug, 2013 [facility] [address] [id number] [address] [place] [address], [place] [address] 01 Aug, 2013 [facility] [address] [id number] [address] [place] [address], [place] [address] 20 Jul, 2012 [facility] [address] [id number] [address] [place] [address], [place] [address] 19 Sep, 2012 [facility] [address] [id number] [address] [place] [address], [place] [address] 18 Jul, 2012 [facility] [address] [id number] [address] [place] [address] [address] 11 Jul2012 [facility] [address] [id number] [facility] [place] [address] Jul, [facility] [address] [id number] [address] [place] [address], [place] [address] Jun, [facility] [address] [id number] [address] [place] [address], [place] [address] Jun, [facility] [address] [id number] [address] [place] [address], [place] [address] Jun, [facility] [address] [id number] [address] [place] [address], [place] [address] Jun, [facility] [address] [id number] [address] [place] [address], [place] [address] Jun, [facility] [address] [id number] [address] [place] [address], [place] [address] Jun, [facility] [address] [id number] [address] [place] [address], [place] [address] Jun, [facility] [address] [id number] [address] [place] [address], [place] [address] Jun, [facility] [address] [id number] [address] [place] [address], [place] [address] Jun, [facility] [address] [id number] [address] [place] [address], [place] [address] Jun, [facility] [address] [id number] [address] [place] [address], [place] [address] May, [facility] [address] [id number] [address] [place] [address], [place] [address] May, [facility] [address] [id number] [address] [place] [address], [place] [address] May, [facility] [address] [id number] [address] [place] [address], [place] [address] May, [facility] [address] [id number] [address] [place] [address], [place] [address] May, [facility] [address] [id number] [address] [place] [address], [place] [address] 16 May, 2013 [facility] [address] [id number] [address] [place] [address], [place] [address] May, [facility] [address] [id number] [address] [place] [address], [place] [address] May, [facility] [address] [id number] [address] [place] [address], [place] [address] May, [facility] [address] [id number] [address] [place] [address], [place] [address] Apr, [facility] [address] [id number] [address] [place] [address], [place] [address] Apr, [facility] [address] [id number] [address] [place] [address], [place] [address] Apr, [facility] [address] [id number] [address] [place] [address], [place] [address] Apr, [facility] [address] [id number] [address] [place] [address], [place] [address] Apr, [facility] [address] [id number] [address] [place] [address], [place] [address] Apr, [facility] [address] [id number] [address] [place] [address], [place] [address] Apr, [facility] [address] [id number] [address] [place] [address], [place] [address] March, [facility] [address] [id number] [address] [place] [address], [place] [address] Feb, [facility] [address] [id number] [address] [place] [address], [place] [address] Feb, [facility] [address] [id number] [address] [place] [address], [place] [address] Feb, [facility] [address] [id number] [address] [place] [address], [place] [address] 28 Jan, 2013 [facility] [address] [id number] [address] [place] [address], [place] [address] 21 Jan, 2013 [facility] [address] [id number] [address] [place] [address], [place] [address] 19 Jan, 2013 [facility] [address] [id number] [address] [place] [address], [place] [address] 14 Jan, 2013 [facility] [address] [id number] [address] [place] [address], [place] [address] 12 Jan, 2013 [facility] [address] [id number] [address] [place] [address], [place] [address] 08 Jan, 2013 [facility] [address] [id number] [address] [place] [address], [place] [address] 07 Jan, 2013 [facility] [address] [id number] [address] [place] [address], [place] [address] 04 Jan, 2013 [facility] [address] [id number] [address] [place] [address], [place] [address] 28 Dec, 2012 [facility] [address] [id number] [address] [place] [address], [place] [address] 25 Dec, 2012 [facility] [address] [id number] [address] [place] [address], [place] [address] 13 Dec, 2012 [facility] [address] [id number] [address] [place] [address], [place] [address] 11 Dec, 2012 [facility] [address] [id number] [address] [place] [address], [place] [address] 07 Dec, 2012 [facility] [address] [id number] [address] [place] [address], [place] [address] 06 Dec, 2012 [facility] [address] [id number] [address] [place] [address], [place] [address] 05 Dec, 2012 [facility] [address] [id number] [address] [place] [address], [place] [address] 31 Nov, 2012 [facility] [address] [id number] [address] [place] [address], [place] [address] 24 Nov, 2012 [facility] [address] [id number] [address] [place] [address], [place] [address] 18 Nov, 2012 [facility] [address] [id number] [address] [place] [address], [place] [address] 15 Nov, 2012 [facility] [address] [id number] [address] [place] [address], [place] [address] Nov, [facility] [address] [id number] [address] [place] [address], [place] [address] Nov, [facility] [address] [id number] [address] [place] [address], [place] [address] Nov, [facility] [address] [id number] [address] [place] [address], [place] [address] Oct, [facility] [address] [id number] [address] [place] [address], [place] [address] 31 Oct, 2012 [facility] [address] [id number] [address] [place] [address], [place] [address] Oct, [facility] [address] [id number] [address] [place] [address], [place] [address] Oct, [facility] [address] [id number] [address] [place] [address], [place] [address] 17 Oct, 2012 [facility] [address] [id number] [address] [place] [address], [place] [address] 17 Oct, 2012 [facility] [address] [id number] [address] [place] [address], [place] [address] 07 Oct, 2012 [facility] [address] [id number] [address] [place] [address], [place] [address] 07 Oct, 2012 [facility] [address] [id number] [address] [place] [address], [place] [address] 05 Oct, 2012 [facility] [address] [id number] [address] [place] [address], [place] [address] Oct, [facility] [address] [id number] [address] [place] [address], [place] [address] Oct, [facility] [address] [id number] [address] [place] [address], [place] [address] Oct, [facility] [address] [id number] [address] [place] [address], [place] [address] Sep, [facility] [address] [id number] [address] [place] [address], [place] [address] Sep, [facility] [address] [id number] [address] [place] [address], [place] [address] Sep, [facility] [address] [id number] [address] [place] [address], [place] [address] Sep, [facility] [address] [id number] [address] [place] [address], [place] [address] Sep, [facility] [address] [id number] [address] [place] [address], [place] [address] Sep, [facility] [address] [id number] [address] [place] [address], [place] [address] Sep, [facility] [address] [id number] [address] [place] [address], [place] [address] Sep, [facility] [address] [id number] [address] [place] [address], [place] [address] Sep, [facility] [address] [id number] [address] [place] [address], [place] [address] Sep, [facility] [address] [id number] [address] [place] [address], [place] [address] Sep, [facility] [address] [id number] [address] [place] [address], [place] [address] Aug, [facility] [address] [id number] [address] [place] [address], [place] [address] Aug, [facility] [address] [id number] [address] [place] [address], [place] [address] Aug, [facility] [address] [id number] [address] [place] [address], [place] [address] Aug, [facility] [address] [id number] [address] [place] [address], [place] [address] Aug, [facility] [address] [id number] [address] [place] [address], [place] [address] Aug, [facility] [address] [id number] [address] [place] [address], [place] [address] Aug, [facility] [address] [id number] [address] [place] [address], [place] [address] Aug, [facility] [address] [id number] [address] [place] [address], [place] [address] Aug, [facility] [address] [id number] [address] [place] [address], [place] [address] Aug, [facility] [address] [id number] [address] [place] [address], [place] [address] Jul, [facility] [address] [id number] [address] [place] [address], [place] [address] 20 Jul, 2012 [facility] [address] [id number] [address] [place] [address], [place] [address] 10 Jul, 2012 [facility] [address] [id number] [address] [place] [address], [place] [address] 06 Jul, 2012 [facility] [address] [id number] [address] [place] [address], [place] [address] 30 Jun, 2012 [facility] [address] [id number] [address] [place] [address], [place] [address] Jun, [facility] [address] [id number] [address] [place] [address], [place] [address] 16 Jun, 2012 [facility] [address] [id number] [address] [place] [address], [place] [address] Jun, [facility] [address] [id number] [address] [place] [address], [place] [address] Jun, [facility] [address] [id number] [address] [place] [address], [place] [address] Jun, [facility] [address] [id number] [address] [place] [address], [place] [address] Jun, [facility] [address] [id number] [address] [place] [address], [place] [address] May, [facility] [address] [id number] [address] [place] [address], [place] [address] May, [facility] [address] [id number] [address] [place] [address], [place] [address] May, [facility] [address] [id number] [address] [place] [address], [place] [address] May, [facility] [address] [id number] [address] [place] [address], [place] [address] May, [facility] [address] [id number] [address] [place] [address], [place] [address] Apr, [facility] [address] [id number] [address] [place] [address], [place] [address] Apr, [facility] [address] [id number] [address] [place] [address], [place] [address] Apr, [facility] [address] [id number] [address] [place] [address], [place] [address] Apr, [facility] [address] [id number] [address] [place] [address], [place] [address] Apr, [facility] [address] [id number] [address] [place] [address], [place] [address] March, [facility] [address] [id number] [address] [place] [address], [place] [address] March, [facility] [address] [id number] [address] [place] [address], [place] [address] March, [facility] [address] [id number] [address] [place] [address], [place] [address] March, [facility] [address] [id number] [address] [place] [address], [place] [address] March, [facility] [address] [id number] [address] [place] [address], [place] [address] March, [facility] [address] [id number] [address] [place] [address], [place] [address] March, [facility] [address] [id number] [address] [place] [address], [place] [address] March, [facility] [address] [id number] [address] [place] [address], [place] [address] March, [facility] [address] [id number] [address] [place] [address], [place] [address] March, [facility] [address] [id number] [address] [place] [address], [place] [address] 30 Feb, 2012 [facility] [address] [id number] [address] [place] [address], [place] [address] Feb, [facility] [address] [id number] [address] [place] [address], [place] [address] Feb, [facility] [address] [id number] [address] [place] [address], [place] [address] Feb, [facility] [address] [id number] [address] [place] [address], [place] [address] Feb, [facility] [address] [id number] [address] [place] [address], [place] [address] Feb, [facility] [address] [id number] [address] [place] [address], [place] [address] Feb, [facility] [address] [id number] [address] [place] [address], [place] [address] Feb, [facility] [place] [address] [id number] [address] [place] [address], [place] [address] Feb, [facility] [address] [id number] [address] [place] [address], [place] [address] 08 Jan, 2012 [facility] [address] [id number] [address] [place] [address], [place] [address] Jan, [facility] [address] [id number] [address] [place] [address], [place] [address] Jan, [facility] [address] [id number] [address] [place] [address], [place] [address] Jan, [facility] [address] [id number] [address] [place] [address], [place] [address] Dec, [facility] [address] [id number] [address] [place] [address], [place] [address] Dec, [facility] [address] [id number] [address] [place] [address], [place] [address] Nov, [facility] [address] [id number] [address] [place] [address], [place] [address] Nov, [facility] [address] [id number] [address] [place] [address], [place] [address] Nov, [facility] [address] [id number] [address] [place] [address], [place] [address] Nov, [facility] [address] [id number] [address] [place] [address], [place] [address] Nov, [facility] [address] [id number] [address] [place] [address], [place] [address] Oct, [facility] [address] [id number] [address] [place] [address], [place] [address] Oct, [facility] [address] [id number] [address] [place] [address], [place] [address] Oct, [facility] [address] [id number] [address] [place] [id number] Oct, [facility] [address] [facility] [id number] [address] [place] [id number] Oct, [facility] [address] [facility] [id number] [address] [place] [id number] Oct, [facility] [address] [facility] [id number] [address] [place] [id number] Oct, [facility] [address] [facility] [id number] [address] [place] [id number] Oct, [facility] [address] [facility] [id number] [address] [place] [id number] Sep, IMMUNIZATIONS No Known Immunizations SOCIAL HISTORY [...] History No Surgical history information Hospitalization History [facility]- Urosepsis, ab d pain and fever, discharged 11/27/2017 11/26/2017 Hospitalization History [facility]- Went Unrepsonsive, Hit head 2017 Hospitalization History [facility] [place]- Back Pain 8
--- OUTSIDE RECORDS SUMMARY | 2020-06-18 14:45 | XMS REPORT ---
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 Name Role Phone Migration, Doctor Unavailable Unavailable PROBLEMS Type Condition ICD9-CM Code NUK50-SN Code Onset Dates Condition S tatus SNOMED Code Problem Hypertension I10 Active 9406316 3 Problem Hyperlipidemia E78.5 Active 76620 004 Problem Coronary artery disease I25.10 Active 44057559 Problem Low back pain M54.5 Active 194549 009 Problem Other chronic pain G89.29 Active 8 3845887 Problem Ventral hernia without obstruction or gangrene K43 .9 Active 960317495 Problem Type 2 diabetes mellitus wit hout complication, without long-term current use of insulin E11.9 Active 029128475 Problem Anxiety F41.9 Active 16181760 Problem Peripheral vascular disease I73.9 Ac tive 982442622 Problem Insomnia G47.00 Active 799663059 Problem Microcytic anemia D50.9 Active 23 3418105 Problem Pharyngeal dysphagia R13.13 Active 65494921542222 Problem Other iron deficiency anemia D50.8 A ctive 65333051 Problem Reactive depression F32.9 Active 48112487 Problem Paroxysmal atrial fibrillation I48.0 Active 684569439 Problem 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 Active 18056585 Problem Encounter for suprapubic catheter care Z43.5 Active 783154097 Problem Neurogenic bladder N31.9 Active 3 [id number] ALLERGIES No Information ENCOUNTERS Encounter Location Date Diagnosis [facility] [address] [facility] [id number] [address] [place] [address] Jan, Anxiety F41.9 and Strain of right shoulder, subsequent encounter S46.911D [facility] [address] [facility] [id number] [address] [place] [address] Jan, Via [facility] [address] [place] [address] Jan, Neurogenic bladder N31.9 [facility] [address] [facility] [id number] [address] [place] [address] Dec, [place] [address] [id number] [address] [place] [address] Dec, [place] [address] [id number] [address] [place] [address] Dec, Anxiety F41.9 and Strain of right shoulder, subsequent encounter S46.911D [place] [address] [id number] [address] [place] [address] 10 Dec, 2019 Other iron deficiency anemia D50.8 [place] [address] [id number] [address] [place] [address] 04 Dec, 2019 Via [facility] [address] [place] [address] Dec, Encounter for suprapubic catheter care Z 43.5 and Microcytic anemia D50.9 [place] [address] [id number] [address] [place] [address] Dec, [place] [address] [id number] [address] [place] [address] Nov, Anxiety F41.9 and Strain of right shoulder, subsequent encounter S46.911D [place] [address] [id number] [address] [place] [address] Nov, Hypertension I10 Via [facility] [address] [place] [address] Nov, Pneumonia of both lungs due to infectiou s organism, unspecified part of lung J18.9 and Suprapubic catheter Z93.59 [place] [address] [id number] [address] [place] [address] Nov, Hypertension I10 and Reactiv e depression F32.9 [place] [address] [id number] [address] [place] [address] Oct, Strain of right shoulder, scherer bsequent encounter S46.911D and Anxiety F41.9 [facility] [address] [id number] [address] [place] [address] 16 Oct, 2019 Via [employer] [address] [place] [address] Oct, Suprapubic catheter Z93.59 and Candidias is, intertriginous B37.2 [facility] [address] [id number] [address] [place] [address] Oct, Suprapubic catheter Z93.59 [facility] [address] [id number] [address] [place] [address] Oct, Anxiety F41.9 and Strain of right shoulder, subsequent encounter S46.911D [facility] [address] [id number] [address] [place] [address] Sep, [facility] [address] [id number] [address] [place] [address] Sep, [facility] [address] [id number] [address] [place] [address] Sep, Via [employer] [address] [place] [address] Sep, Suprapubic catheter Z93.59 [facility] [address] [id number] [address] [place] [address] Sep, Anxiety F41.9 and Strain of right shoulder, subsequent encounter S46.911D [facility] [address] [id number] [address] [place] [address] Aug, [facility] [address] [id number] [address] [place] [address] Aug, [facility] [address] [id number] [address] [place] [address] Aug, Anxiety F41.9 and Strain of right shoulder, subsequent encounter S46.911D Via [employer] [address] [place] [address] Aug, Suprapubic catheter Z93.59 [facility] [address] [id number] [address] [place] [address] Jul, Strain of right shoulder, scherer bsequent encounter S46.911D and Anxiety F41.9 [facility] [address] [id number] [address] [place] [address] Jul, Anxiety F41.9 [place] [address] [id number] [address] [place] [address] Jun, [place] [address] [id number] [address] [place] [address] Jun, [place] [address] [id number] [address] [place] [address] Jun, [place] [address] [id number] [address] [place] [address] Jun, Strain of right shoulder, scherer bsequent encounter S46.911D [place] [address] [id number] [address] [place] [address] Jun, Strain of right shoulder, scherer bsequent encounter S46.911D [place] [address] [id number] [address] [place] [address] Jun, Anxiety F41.9 Via [facility] [address] [place] [address] Jun, Neurogenic bladder N31.9 and Anxiety F41 .9 Via [facility] [address] [place] [address] May, Anxiety F41.9 [place] [address] [id number] [address] [place] [address] May, Dysuria R30.0 [place] [address] [id number] [address] [place] [address] May, Strain of right shoulder, scherer bsequent encounter S46.911D and Anxiety F41.9 [place] [address] [id number] [address] [place] [phone] 27 Apr, 2019 Via [facility] [employer] [address] [place] [address] 18 Apr, 2019 Strain of right shoulder, subsequent enc ounter S46.911D [facility] [address] [id number] [address] [place] [address] 14 Apr, 2019 Strain of right shoulder, scherer bsequent encounter S46.911D and Anxiety F41.9 Via [facility] [employer] [address] [place] [address] Apr, Type 2 diabetes mellitus without complic ation, without long-term current use of insulin E11.9 and Neurogenic bladder N31.9 Via [facility] [employer] [address] [place] [address] Apr, Strain of right shoulder, subsequent enc ounter S46.911D ; History of GI bleed Z87.19 ; Neurogenic bladder N31.9 and Reactive depression F32.9 [place] [address] [id number] [address] [place] [address] Apr, Acute pain of left shoulder M25.512 [place] [address] [id number] [address] [place] [address] Apr, [place] [address] [id number] [address] [place] [address] Apr, Anxiety F41.9 and 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 [facility] [address] [place] [address] March, Gastrointestinal hemorrhage associated w ith acute gastritis K29.01 [place] [address] [id number] [address] [place] [address] March, Via [facility] [employer] [address] [place] [address] March, Bronchitis J40 [place] [address] [id number] [address] [place] [address] March, Cough R05 [place] [address] [id number] [address] [place] [address] March, Other chronic pain G89.29 [facility] [address] [id number] [address] [place] [address] March, Anxiety F41.9 [facility] [address] [id number] [address] [place] [address] March, [facility] [address] [id number] [address] [place] [address] Feb, Other chronic pain G89.29 [facility] [address] [id number] [address] [place] [address] Feb, Anxiety F41.9 [facility] [address] [id number] [address] [place] [address] Feb, Other chronic pain G89.29 Via [facility] [address] [place] [address] Feb, Neurogenic bladder N31.9 and Suprapubic catheter Z93.59 [facility] [address] [id number] [address] [place] [address] Jan, Anxiety F41.9 [facility] [address] [id number] [address] [place] [address] Dec, Anxiety F41.9 [facility] [address] [id number] [address] [place] [address] Dec, Other chronic pain G89.29 an d Anxiety F41.9 [facility] [address] [id number] [address] [place] [address] Dec, Via [employer] [address] [place] [address] Dec, Neurogenic bladder N31.9 and Suprapubic catheter Z93.59 [facility] [address] [id number] [address] [place] [address] Nov, Other chronic pain G89.29 an d Anxiety F41.9 [facility] [address] [id number] [address] [place] [address] Nov, Via [employer] [address] [place] [address] Nov, Suprapubic catheter Z93.59 [facility] [address] [id number] [address] [place] [address] Oct, Other chronic pain G89.29 an d Anxiety F41.9 [facility] [address] [id number] [address] [place] [address] Oct, [facility] [address] [id number] [address] [place] [address] Oct, Suprapubic catheter Z93.59 [facility] [address] [id number] [address] [place] [address] Oct, Via [facility] [address] [place] [address] Oct, [facility] [address] [id number] [address] [place] [address] Oct, Anxiety F41.9 [facility] [address] [id number] [address] [place] [address] Oct, Anxiety F41.9 Via [facility] [address] [place] [address] Oct, Other chronic pain G89.29 [facility] [address] [id number] [address] [place] [address] Sep, Other chronic pain G89.29 Via [facility] [employer] [address] [place] [address] Sep, Suprapubic catheter Z93.59 and Cervicalg ia M54.2 [facility] [address] [id number] [address] [place] [address] Sep, [facility] [address] [id number] [address] [place] [address] Sep, [facility] [address] [id number] [address] [place] [address] Sep, Via [employer] [address] [place] [address] Aug, Cystitis N30.90 [facility] [address] [id number] [address] [place] [address] Aug, [facility] [address] [id number] [address] [place] [address] Aug, Other chronic pain G89.29 [facility] [address] [id number] [address] [place] [address] Aug, Via [employer] [address] [place] [address] Aug, Encounter for suprapubic catheter care Z 43.5 [facility] [address] [id number] [address] [place] [address] Jul, Via [employer] [address] [place] [address] Jul, [facility] [address] [id number] [address] [place] [address] Jul, Other chronic pain G89.29 [facility] [address] [id number] [address] [place] [address] Jul, [facility] [address] [id number] [address] [place] [address] Jul, Via [employer] [address] [place] [address] Jun, 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 [facility] [address] [id number] [address] [place] [address] Jun, Other chronic pain G89.29 [facility] [address] [id number] [address] [place] [address] Jun, Via [employer] [address] [place] [address] May, Anxiety F41.9 ; Type 2 diabetes mellitus without complication, without long-term current use of insulin E11.9 ; Hypertension I10 ; Low back pain M54.5 ; Paroxysmal atrial fibrillation I48.0 and 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 [facility] [address] [id number] [address] [place] [address] May, Other chronic pain G89.29 Via [facility] [employer] [facility] [address] [place] [address] May, Low back pain M54.5 [facility] [address] [id number] [address] [place] [address] May, [facility] [address] [id number] [address] [place] [address] Apr, Other chronic pain G89.29 [facility] [address] [id number] [address] [place] [address] Apr, [facility] [address] [id number] [address] [place] [address] Apr, Via [employer] [address] [place] [address] Apr, Closed compression fracture of L3 lumbar vertebra with routine healing, subsequent encounter S32.030D [facility] [employer] [facility] [address] [place] [address] Apr, Low back pain M54.5 Via [facility] [employer] [address] [place] [address] Apr, Coccydynia M53.3 [facility] [address] [id number] [address] [place] [address] March, [facility] [address] [id number] [address] [place] [address] March, Other chronic pain G89.29 [facility] [address] [id number] [address] [place] [address] March, [facility] [address] [id number] [address] [place] [address] March, [facility] [address] [id number] [address] [place] [address] Feb, [facility] [address] [id number] [address] [place] [address] Feb, Other chronic pain G89.29 Via [facility] [address] [place] [address] Feb, Other chronic pain G89.[address] F[address] [facility] [address] [id number] [address] [place] [address] Feb, [facility] [address] [id number] [address] [place] [address] Jan, [facility] [address] [id number] [address] [place] [address] Jan, [facility] [address] [id number] [address] [place] [address] Jan, [facility] [address] [id number] [address] [place] [address] Jan, 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 [address] [id number] [address] [place] [address] Nov, [facility] [address] [id number] [place] [address] Nov, Anxiety F41.9 [facility] [address] [place] [address] Nov, Status post surgery Z98.890 ; Confused R 41.0 ; Anxiety F41.9 and Other chronic pain G89.29 [facility] [address] [id number] [place] [address] Nov, Other chronic pain G89.29 [facility] [address] [facility] [id number] [address] [place] [address] Oct, [facility] [address] [id number] [place] [address] Oct, Other chronic pain G89.29 [facility] [address] [facility] [id number] [address] [place] [address] Oct, Anxiety F41.9 [facility] [address] [id number] [place] [address] Sep, Other chronic pain G89.29 [facility] [address] [id number] [place] [address] Sep, Via [employer] [address] [place] [address] Aug, Dysuria R30.[address] [facility] [address] [id number] [address] [place] [address] Aug, [facility] [address] [id number] [place] [address] Aug, Other chronic pain G89.29 [facility] [address] [facility] [id number] [address] [place] [address] Jul, Other chronic pain G89.29 [facility] [address] [id number] [place] [address] Jun, [facility] [address] [id number] [place] [address] Jun, Other chronic pain G89.29 [facility] [address] [id number] [address] [place] [address] Jun, [facility] [address] [facility] [id number] [address] [place] [address] May, Other chronic pain G89.29 [facility] [address] [facility] [id number] [address] [place] [address] Apr, Other chronic pain G89.29 Via [facility] [address] [place] [address] Apr, Reactive depression F32.9 and Pharyngeal dysphagia R13.13 [facility] [address] [facility] [id number] [address] [place] [address] Apr, Urinary tract infection with out hematuria, site unspecified N39.0 [facility] [address] [facility] [id number] [address] [place] [address] March, Other chronic pain G89.29 [facility] [address] [facility] [id number] [address] [place] [address] Feb, Other chronic pain G89.29 [facility] [address] [facility] [id number] [address] [place] [address] Feb, [facility] [address] [id number] [place] [address] Feb, Via [employer] [address] [place] [address] Feb, Dysuria R30.0 and Ventral hernia without obstruction or gangrene K43.9 [facility] [address] [id number] [address] [place] [address] Jan, Other chronic pain G89.29 [facility] [address] [id number] [place] [address] Dec, Other chronic pain G89.29 [facility] [address] [id number] [address] [place] [address] Nov, Other chronic pain G89.29 Via [facility] [address] [place] [address] Nov, Lymphadenitis I88.9 [facility] [address] [id number] [address] [place] [address] Nov, Other chronic pain G89.29 [facility] [address] [id number] [address] [place] [address] Nov, [facility] [address] [id number] [place] [id number] Nov, Other chronic pain G89.29 Via [facility] [address] [place] [address] Oct, Low back pain M54.5 ; Hypertension I10 a nd Type 2 diabetes mellitus without complication, without long-term current use of insulin E11.9 [facility] [address] [id number] [address] [place] [address] Oct, [facility] [address] [id number] [address] [place] [phone] Oct, [facility] [address] [id number] [address] [place] [phone] Oct, [facility] [address] [id number] [address] [place] [phone] Oct, [facility] [address] [id number] [address] [place] [phone] Sep, [facility] [address] [id number] [address] [place] [phone] Sep, [facility] [address] [facility] [id number] [address] [place] [id number] Aug, Other chronic pain G89.29 [facility] [address] [id number] [address] [place] [phone] Jul, [facility] [address] [id number] [address] [place] [phone] Jul, [facility] [address] [id number] [address] [place] [phone] Jul, [facility] [address] [id number] [address] [place] [phone] Jun, [facility] [address] [id number] [address] [place] [phone] Jun, [facility] [address] [place] [id number] Jun, Low back pain M54.5 ; Other chronic pain G89.29 and Coronary artery disease I25.10 [facility] [address] [id number] [address] [place] [id number] Jun, [facility] [address] [id number] [address] [place] [phone] May, [facility] [address] [id number] [address] [place] [phone] May, [facility] [address] [id number] [address] [place] [phone] May, Other chronic pain G89.29 [facility] [address] [id number] [address] [place] [phone] May, [facility] [address] [id number] [address] [place] [phone] Apr, [facility] [address] [id number] [address] [place] [id number] 17 Apr, 2016 Acute cystitis without hemat uria N30.00 [facility] [address] [id number] [address] [place] [id number] 16 Apr, 2016 Acute cystitis without hemat uria N30.00 ; Coronary artery disease I25.10 ; Low back pain M54.5 and Other chronic pain G89.29 [facility] [address] [id number] [address] [place] [id number] 13 Apr, 2016 Other chronic pain G89.29 [facility] [address] [id number] [address] [place] [address] March, Other chronic pain G89.29 [facility] [address] [id number] [address] [place] [address] 18 Feb, 2016 [facility] [address] [id number] [address] [place] [address] 15 Feb, [address] [facility] [address] [id number] [address] [place] [address] Feb, [facility] [address] [id number] [address] [place] [address] [address], [address] [facility] [address] [id number] [address] [place] [address] Jan, [facility] [address] [id number] [address] [place] [address] Jan, Other chronic pain G89.29 [facility] [address] [id number] [address] [place] [address] Jan, Hypertension I10 ; Coronary artery disease I25.[address] [facility] [address] [facility] [id number] [address] [place] [address] Jan, [facility] [address] [id number] [address] [place] [address] Dec, Right hip pain M25.551 [facility] [address] [id number] [address] [place] [address] Dec, [facility] [address] [facility] [id number] [address] [place] [address] Dec, [facility] [address] [facility] [id number] [address] [place] [address] Dec, [facility] [address] [id number] [address] [place] [address] Dec, Other chronic pain G89.29 [facility] [address] [id number] [address] [place] [address] Dec, [facility] [address] [id number] [address] [place] [address] Nov, [facility] [address] [id number] [address] [place] [address] Nov, Other chronic pain G89.29 [facility] [address] [id number] [address] [place] [address] Nov, Right hip pain M25.551 and C oronary artery disease I25.10 [facility] [address] [id number] [address] [place] [address] Nov, Other chronic pain G89.29 [facility] [address] [id number] [address] [place] [address] Oct, [facility] [address] [id number] [address] [place] [address] Oct, [facility] [address] [id number] [address] [place] [address] Sep, [facility] [address] [id number] [address] [place] [id number] Sep, [facility] [address] [id number] [address] [place] [address] Aug, [facility] [address] [id number] [address] [place] [address] Aug, Hypertension I10 ; Coronary artery disease I25.[address] [facility] [address] [id number] [address] [place] [address] Jun, [facility] [address] [id number] [address] [place] [address] Jun, Essential hypertension, jayson gn 401.1 ; Other chronic pain 338.29 and Chronic airway obstruction, not elsewhere classified 496 [facility] [address] [id number] [address] [place] [address], [place] [address] [address], [facility] [address] [id number] [address] [place] [address], [place] [address] Jun, [facility] [address] [id number] [address] [place] [address], [place] [address] Jun, [facility] [address] [id number] [address] [place] [address], [place] [address] May, [facility] [address] [id number] [address] [place] [address], [place] [address] May, [facility] [address] [id number] [address] [place] [address], [place] [address] Apr, [facility] [address] [id number] [address] [place] [address], [place] [address] Apr, [facility] [address] [id number] [address] [place] [address], [place] [address] Apr, [facility] [address] [id number] [address] [place] [address], [place] [address] March, [facility] [address] [id number] [address] [place] [id number] March, [facility] [address] [id number] [address] [place] [address], [place] [address] March, [facility] [address] [id number] [address] [place] [address] March, [facility] [address] [id number] [address] [place] [address] March, Sialadenitis 527.2 [facility] [address] [id number] [address] [place] [address] Feb, [facility] [address] [id number] [address] [place] [address] Feb, [facility] [address] [id number] [address] [place] [address], [place] [address] 29 Feb, 2015 [facility] [address] [id number] [address] [place] [address], [place] [address] 14 Feb, 2015 [facility] [address] [id number] [address] [place] [address], [place] [address] Feb, [facility] [address] [id number] [address] [place] [address], [place] [address] Jan, [facility] [address] [id number] [address] [place] [address], [place] [address] Jan, [facility] [address] [id number] [address] [place] [address], [place] [address] Jan, [facility] [address] [id number] [address] [place] [address], [place] [address] Jan, [facility] [address] [id number] [address] [place] [address], [place] [address] Jan, [facility] [address] [id number] [address] [place] [address], [place] [address] Jan, [facility] [address] [id number] [address] [place] [address], [place] [address] Dec, 2014 [facility] [address] [id number] [address] [place] [address], [place] [address] Dec, 2014 [facility] [address] [id number] [address] [place] [address], [place] [address] Dec, 2014 [facility] [address] [id number] [address] [place] [address], [place] [address] Dec, 2014 [facility] [address] [id number] [address] [place] [address], [place] [address] Dec, 2014 [facility] [address] [id number] [address] [place] [address], [place] [address] Dec2014 [facility] [address] [id number] [address] [place] [address], [place] [address] Nov, [facility] [address] [id number] [address] [place] [address], [place] [address] Nov, [facility] [address] [id number] [address] [place] [address], [place] [address] Nov, [facility] [address] [id number] [address] [place] [address], [place] [address] Nov, [facility] [address] [id number] [address] [place] [address], [place] [address] Nov, [facility] [address] [id number] [address] [place] [address], [place] [address] Nov, [facility] [address] [id number] [address] [place] [address], [place] [address] Nov, [facility] [address] [id number] [address] [place] [address], [place] [address] Nov, [facility] [address] [id number] [address] [place] [address], [place] [address] Nov, [facility] [address] [id number] [address] [place] [address], [place] [address] Nov, [facility] [address] [id number] [address] [place] [address], [place] [address] Nov, [facility] [address] [id number] [address] [place] [address], [place] [address] Nov, [facility] [address] [id number] [address] [place] [address], [place] [address] Nov, [facility] [address] [id number] [address] [place] [address], [place] [address] Nov, [facility] [address] [id number] [address] [place] [address], [place] [address] Oct, [facility] [address] [id number] [address] [place] [address], [place] [address] 19 Oct, 2014 [facility] [address] [id number] [address] [place] [address], [place] [address] 19 Oct, 2014 [facility] [address] [id number] [address] [place] [address], [place] [address] 18 Oct, 2014 [facility] [address] [id number] [address] [place] [address], [place] [address] 18 Oct, 2014 [facility] [address] [id number] [address] [place] [address], [place] [address] Oct, [facility] [address] [id number] [address] [place] [address], [place] [address] 17 Oct, 2014 [facility] [address] [id number] [address] [place] [address], [place] [address] Oct, [facility] [address] [id number] [address] [place] [address], [place] [address] Oct, [facility] [address] [id number] [address] [place] [address], [place] [address] Sep, [facility] [address] [id number] [address] [place] [address], [place] [address] Sep, [facility] [address] [id number] [address] [place] [address], [place] [address] Sep, [facility] [address] [id number] [address] [place] [address], [place] [address] Sep, [facility] [address] [id number] [address] [place] [address], [place] [address] Sep, [facility] [address] [id number] [address] [place] [address], [place] [address] Sep, [facility] [address] [id number] [address] [place] [address], [place] [address] Sep, [facility] [address] [id number] [address] [place] [address], [place] [address] Sep, [facility] [address] [id number] [address] [place] [address], [place] [address] Sep, [facility] [address] [id number] [address] [place] [address], [place] [address] Sep, [facility] [address] [id number] [address] [place] [address], [place] [address] Sep, [facility] [address] [id number] [address] [place] [address], [place] [address] Sep, [facility] [address] [id number] [address] [place] [address], [place] [address] Aug, [facility] [address] [id number] [address] [place] [address], [place] [address] Aug, [facility] [address] [id number] [address] [place] [address], [place] [address] Aug, [facility] [address] [id number] [address] [place] [address], [place] [address] Aug, [facility] [address] [id number] [address] [place] [address], [place] [address] Aug, [facility] [address] [id number] [address] [place] [address], [place] [address] Aug, [facility] [address] [id number] [address] [place] [address], [place] [address] Aug, [facility] [address] [id number] [address] [place] [address], [place] [address] Aug, [facility] [address] [id number] [address] [place] [address], [place] [address] 30 Jul, 2014 [facility] [address] [id number] [address] [place] [address], [place] [address] 30 Jul, 2014 [facility] [address] [id number] [address] [place] [address], [place] [address] 30 Jul, 2013 [facility] [address] [id number] [address] [place] [address], [place] [address] 30 Jul, 2014 [facility] [address] [id number] [address] [place] [address], [place] [address] Jul, [facility] [address] [id number] [address] [place] [address], [place] [address] Jul, [facility] [address] [id number] [address] [place] [address], [place] [address] 15 Jul, 2014 [facility] [address] [id number] [address] [place] [address], [place] [address] 15 Jul, 2014 [facility] [address] [id number] [address] [place] [address], [place] [address] Jul, [facility] [address] [id number] [address] [place] [address], [place] [address] Jul, [facility] [address] [id number] [address] [place] [address], [place] [address] Jun, [facility] [address] [id number] [address] [place] [address], [place] [address] Jun, [facility] [address] [id number] [address] [place] [address], [place] [address] Jun, [facility] [address] [id number] [address] [place] [address], [place] [address] Jun, [facility] [address] [id number] [address] [place] [address], [place] [address] Jun, [facility] [address] [id number] [address] [place] [address], [place] [address] Jun, [facility] [address] [id number] [address] [place] [address], [place] [address] Jun, [facility] [address] [id number] [address] [place] [address], [place] [address] Jun, [facility] [address] [id number] [address] [place] [address], [place] [address] Jun, [facility] [address] [id number] [address] [place] [address], [place] [address] Jun, [facility] [address] [id number] [address] [place] [address], [place] [address] Jun, [facility] [address] [id number] [address] [place] [address], [place] [address] Jun, [facility] [address] [id number] [address] [place] [address], [place] [address] Jun, [facility] [address] [id number] [address] [place] [address], [place] [address] Jun, [facility] [address] [id number] [address] [place] [address], [place] [address] Jun, [facility] [address] [id number] [address] [place] [address], [place] [address] Jun, [facility] [address] [id number] [address] [place] [address], [place] [address] Jun, [facility] [address] [id number] [address] [place] [address], [place] [address] Jun, [facility] [address] [id number] [address] [place] [address], [place] [address] Jun, [facility] [address] [id number] [address] [place] [address], [place] [address] Jun, [facility] [address] [id number] [address] [place] [address], [place] [address] Jun, [facility] [address] [id number] [address] [place] [address], [place] [address] Jun, [facility] [address] [id number] [address] [place] [address], [place] [address] May, [facility] [address] [id number] [address] [place] [address], [place] [address] May, [facility] [address] [id number] [address] [place] [address], [place] [address] May, [facility] [address] [id number] [facility] [place] [address] May, 2013 [facility] [address] [id number] [facility] [place] [address] May, [facility] [address] [id number] [facility] [place] [address] May, 2013 [facility] [address] [id number] [facility] [place] [address] May, 2013 [facility] [address] [id number] [facility] [place] [address] May, 2013 [facility] [address] [id number] [facility] [place] [address] May, [facility] [address] [id number] [address] [place] [address], [place] [address] May, [facility] [address] [id number] [address] [place] [address], [place] [address] May, [facility] [address] [id number] [address] [place] [address], [place] [address] May, [facility] [address] [id number] [address] [place] [address], [place] [address] May, [facility] [address] [id number] [address] [place] [address], [place] [address] Apr, [facility] [address] [id number] [address] [place] [address], [place] [address] Apr, [facility] [address] [id number] [address] [place] [address], [place] [address] Apr, [facility] [address] [id number] [address] [place] [address], [place] [address] Apr, [facility] [address] [id number] [address] [place] [address], [place] [address] Apr, [facility] [address] [id number] [address] [place] [address], [place] [address] Apr, [facility] [address] [id number] [facility] [place] [address] Apr, [facility] [address] [id number] [facility] [place] [address] Apr, [facility] [address] [id number] [facility] [place] [address] Apr, [facility] [address] [id number] [address] [place] [address], [place] [address] March, [facility] [address] [id number] [address] [place] [address], [place] [address] March, [facility] [address] [id number] [address] [place] [address], [place] [address] March, [facility] [address] [id number] [address] [place] [address], [place] [address] March, [facility] [address] [id number] [address] [place] [address], [place] [address] March, [facility] [address] [id number] [address] [place] [address], [place] [address] March, [facility] [address] [id number] [address] [place] [address], [place] [address] March, [facility] [address] [id number] [address] [place] [address], [place] [address] March, [facility] [address] [id number] [address] [place] [address], [place] [address] March, [facility] [address] [id number] [address] [place] [address], [place] [address] March, [facility] [address] [id number] [address] [place] [address], [place] [address] March, [facility] [address] [id number] [address] [place] [address], [place] [address] March, [facility] [address] [id number] [address] [place] [address], [place] [address] March, [facility] [address] [id number] [address] [place] [address], [place] [address] March, [facility] [address] [id number] [address] [place] [address], [place] [address] March, [facility] [address] [id number] [address] [place] [address], [place] [address] March, [facility] [address] [id number] [address] [place] [address], [place] [address] March, [facility] [address] [id number] [address] [place] [address], [place] [address] March, [facility] [address] [id number] [address] [place] [address], [place] [address] March, [facility] [address] [id number] [address] [place] [address], [place] [address] March, [facility] [address] [id number] [address] [place] [address], [place] [address] Feb, [facility] [address] [id number] [address] [place] [address], [place] [address] Feb, [facility] [address] [id number] [address] [place] [address], [place] [address] Feb, [facility] [address] [id number] [address] [place] [address], [place] [address] Feb, [facility] [address] [id number] [address] [place] [address], [place] [address] Feb, [facility] [address] [id number] [address] [place] [address], [place] [address] Feb, [facility] [address] [id number] [address] [place] [address], [place] [address] Feb, [facility] [address] [id number] [address] [place] [address], [place] [address] Feb, [facility] [address] [id number] [facility] [place] [address] Jan, [facility] [address] [id number] [facility] [place] [address] Jan, [facility] [address] [id number] [facility] [place] [address] Jan, [facility] [address] [id number] [facility] [place] [address] 24 Jan, 2014 [facility] [address] [id number] [address] [place] [address], [place] [address] Jan, [facility] [address] [id number] [address] [place] [address], [place] [address] Jan, [facility] [address] [id number] [address] [place] [address], [place] [address] Jan, [facility] [address] [id number] [address] [place] [address], [place] [address] Jan, [facility] [address] [id number] [address] [place] [address], [place] [address] Jan, [facility] [address] [id number] [address] [place] [address], [place] [address] Jan, [facility] [address] [id number] [address] [place] [address], [place] [address] Dec, [facility] [address] [id number] [address] [place] [address], [place] [address] Dec, [facility] [address] [id number] [address] [place] [address], [place] [address] Dec, [facility] [address] [id number] [address] [place] [address], [place] [address] 2013 [facility] [address] [id number] [address] [place] [address], [place] [address] Dec, [facility] [address] [id number] [address] [place] [address], [place] [address] Dec, [facility] [address] [id number] [address] [place] [address], [place] [address] Dec, [facility] [address] [id number] [address] [place] [address], [place] [address] Dec, [facility] [address] [id number] [address] [place] [address], [place] [address] Nov, [facility] [address] [id number] [address] [place] [address], [place] [address] Nov, [facility] [address] [id number] [address] [place] [address], [place] [address] Nov, [facility] [address] [id number] [address] [place] [address], [place] [address] Nov, [facility] [address] [id number] [address] [place] [address], [place] [address] Nov, [facility] [address] [id number] [address] [place] [address], [place] [address] Nov, [facility] [address] [id number] [address] [place] [address], [place] [address] Nov, [facility] [address] [id number] [address] [place] [address], [place] [address] Nov, [facility] [address] [id number] [address] [place] [address], [place] [address] Nov, [facility] [address] [id number] [address] [place] [address], [place] [address] Nov, [facility] [address] [id number] [address] [place] [address], [place] [address] Nov, [facility] [address] [id number] [address] [place] [address], [place] [address] Nov, [facility] [address] [id number] [address] [place] [address], [place] [address] Nov, [facility] [address] [id number] [address] [place] [address], [place] [address] 30 Oct, 2013 [facility] [address] [id number] [address] [place] [address], [place] [address] Oct, [facility] [address] [id number] [address] [place] [address], [place] [address] Oct, [facility] [address] [id number] [address] [place] [address], [place] [address] Oct, [facility] [address] [id number] [address] [place] [address], [place] [address] Oct, [facility] [address] [id number] [address] [place] [address], [place] [address] Oct, [facility] [address] [id number] [address] [place] [address], [place] [address] Oct, [facility] [address] [id number] [address] [place] [address], [place] [address] Oct, [facility] [address] [id number] [address] [place] [address], [place] [address] Oct, [facility] [address] [id number] [address] [place] [address], [place] [address] Oct, [facility] [address] [id number] [address] [place] [address], [place] [address] Oct, [facility] [address] [id number] [address] [place] [address], [place] [address] Oct, [facility] [address] [id number] [address] [place] [address], [place] [address] Oct, [facility] [address] [id number] [address] [place] [address], [place] [address] Oct, [facility] [address] [id number] [address] [place] [address], [place] [address] 14 Sep, 2013 [facility] [address] [id number] [address] [place] [address], [place] [address] Sep, [facility] [address] [id number] [address] [place] [address], [place] [address] Sep, [facility] [address] [id number] [address] [place] [address] Sep, [facility] [address] [id number] [address] [place] [address] Sep, [facility] [address] [id number] [address] [place] [address] Sep, [facility] [address] [id number] [address] [place] [address], [place] [address] Sep, [facility] [address] [id number] [address] [place] [address] Sep, [facility] [address] [id number] [address] [place] [address] Sep, [facility] [address] [id number] [address] [place] [address] Sep, [facility] [address] [id number] [address] [place] [address] Aug, [facility] [address] [id number] [address] [place] [address] Aug, [facility] [address] [id number] [address] [place] [address] Aug, [facility] [address] [id number] [address] [place] [address] Aug, [facility] [address] [id number] [address] [place] [address], [place] [address] Aug, [facility] [address] [id number] [address] [place] [address] Aug, [facility] [address] [id number] [address] [place] [address] Aug, [facility] [address] [id number] [address] [place] [address], [place] [address] 23 Aug, 2012 [facility] [address] [id number] [address] [place] [address], [place] [address] 22 Aug, 2012 [facility] [address] [id number] [address] [place] [address], [place] [address] 22 Aug, 2012 [facility] [address] [id number] [address] [place] [address], [place] [address] 18 Aug, 2012 [facility] [address] [id number] [address] [place] [address], [place] [address] 18 Aug, 2012 [facility] [address] [id number] [address] [place] [address], [place] [address] 18 Aug, 2013 [facility] [address] [id number] [address] [place] [address], [place] [address] 18 Aug, 2013 [facility] [address] [id number] [address] [place] [address], [place] [address] 17 Aug, 2012 [facility] [address] [id number] [address] [place] [address], [place] [address] 14 Aug, 2013 [facility] [address] [id number] [address] [place] [address], [place] [address] 14 Aug, 2013 [facility] [address] [id number] [address] [place] [address], [place] [address] 01 Aug, 2013 [facility] [address] [id number] [address] [place] [address], [place] [address] 20 Jul, 2012 [facility] [address] [id number] [address] [place] [address], [place] [address] 19 Sep, 2012 [facility] [address] [id number] [address] [place] [address], [place] [address] 18 Sep, 2012 [facility] [address] [id number] [address] [place] [address], [place] [address] 11 Jul, 2012 [facility] [address] [id number] [address] [place] [address], [place] [address] Jul, [facility] [address] [id number] [address] [place] [address], [place] [address] Jun, [facility] [address] [id number] [address] [place] [address], [place] [address] Jun, [facility] [address] [id number] [address] [place] [address], [place] [address] Jun, [facility] [address] [id number] [address] [place] [address], [place] [address] Jun, [facility] [address] [id number] [address] [place] [address], [place] [address] Jun, [facility] [address] [id number] [address] [place] [address], [place] [address] Jun, [facility] [address] [id number] [address] [place] [address], [place] [address] Jun, [facility] [address] [id number] [address] [place] [address], [place] [address] Jun, [facility] [address] [id number] [address] [place] [address], [place] [address] Jun, [facility] [address] [id number] [address] [place] [address], [place] [address] Jun, [facility] [address] [id number] [address] [place] [address], [place] [address] May, [facility] [address] [id number] [address] [place] [address], [place] [address] May, [facility] [address] [id number] [address] [place] [address], [place] [address] May, [facility] [address] [id number] [address] [place] [address], [place] [address] May, [facility] [address] [id number] [address] [place] [address], [place] [address] May, [facility] [address] [id number] [address] [place] [address], [place] [address] 16 May, 2013 [facility] [address] [id number] [address] [place] [address], [place] [address] May, [facility] [address] [id number] [address] [place] [address], [place] [address] May, [facility] [address] [id number] [address] [place] [address], [place] [address] May, [facility] [address] [id number] [address] [place] [address], [place] [address] Apr, [facility] [address] [id number] [address] [place] [address], [place] [address] Apr, [facility] [address] [id number] [address] [place] [address], [place] [address] Apr, [facility] [address] [id number] [address] [place] [address], [place] [address] Apr, [facility] [address] [id number] [address] [place] [address], [place] [address] Apr, [facility] [address] [id number] [address] [place] [address], [place] [address] Apr, [facility] [address] [id number] [address] [place] [address], [place] [address] Apr, [facility] [address] [id number] [address] [place] [address], [place] [address] March, [facility] [address] [id number] [address] [place] [address], [place] [address] Feb, [facility] [address] [id number] [address] [place] [address], [place] [address] Feb, [facility] [address] [id number] [address] [place] [address], [place] [address] Feb, [facility] [address] [id number] [address] [place] [address], [place] [address] Jan, [facility] [address] [id number] [address] [place] [address], [place] [address] 21 Jan, 2013 [facility] [address] [id number] [address] [place] [address], [place] [address] 19 Jan, 2013 [facility] [address] [id number] [address] [place] [address], [place] [address] 14 Jan, 2013 [facility] [address] [id number] [address] [place] [address], [place] [address] 12 Jan, 2013 [facility] [address] [id number] [address] [place] [address], [place] [address] 08 Jan, 2013 [facility] [address] [id number] [address] [place] [address], [place] [address] 07 Jan, 2013 [facility] [address] [id number] [address] [place] [address], [place] [address] 04 Jan, 2013 [facility] [address] [id number] [address] [place] [address], [place] [address] 28 Dec, 2012 [facility] [address] [id number] [address] [place] [address], [place] [address] 25 Dec, 2012 [facility] [address] [id number] [address] [place] [address], [place] [address] 13 Dec, 2012 [facility] [address] [id number] [address] [place] [address], [place] [address] 11 Dec, 2012 [facility] [address] [id number] [address] [place] [address], [place] [address] 07 Dec, 2012 [facility] [address] [id number] [address] [place] [address], [place] [address] 06 Dec, 2012 [facility] [address] [id number] [address] [place] [address], [place] [address] 05 Dec, 2012 [facility] [address] [id number] [address] [place] [address], [place] [address] Nov, [facility] [address] [id number] [address] [place] [address], [place] [address] Nov, [facility] [address] [id number] [address] [place] [address], [place] [address] 18 Nov, 2012 [facility] [address] [id number] [address] [place] [address], [place] [address] 15 Nov, 2012 [facility] [address] [id number] [address] [place] [address], [place] [address] Nov, [facility] [address] [id number] [address] [place] [address], [place] [address] Nov, [facility] [address] [id number] [address] [place] [address], [place] [address] Nov, [facility] [address] [id number] [address] [place] [address], [place] [address] Oct, [facility] [address] [id number] [address] [place] [address], [place] [address] Oct, [facility] [address] [id number] [address] [place] [address], [place] [address] Oct, [facility] [address] [id number] [address] [place] [address], [place] [address] Oct, [facility] [address] [id number] [address] [place] [address], [place] [address] Oct, [facility] [address] [id number] [address] [place] [address], [place] [address] Oct, [facility] [address] [id number] [address] [place] [address], [place] [address] Oct, [facility] [address] [id number] [address] [place] [address], [place] [address] Oct, [facility] [address] [id number] [address] [place] [address], [place] [address] 05 Oct, 2012 [facility] [address] [id number] [address] [place] [address], [place] [address] 05 Oct, 2012 [facility] [address] [id number] [address] [place] [address], [place] [address] Oct, [facility] [address] [id number] [address] [place] [address], [place] [address] Oct, [facility] [address] [id number] [address] [place] [address], [place] [address] Sep, [facility] [address] [id number] [address] [place] [address], [place] [address] Sep, [facility] [address] [id number] [address] [place] [address], [place] [address] Sep, [facility] [address] [id number] [address] [place] [address], [place] [address] Sep, [facility] [address] [id number] [address] [place] [address], [place] [address] Sep, [facility] [address] [id number] [address] [place] [address], [place] [address] Sep, [facility] [address] [id number] [address] [place] [address], [place] [address] Sep, [facility] [address] [id number] [address] [place] [address], [place] [address] Sep, [facility] [address] [id number] [address] [place] [address], [place] [address] Sep, [facility] [address] [id number] [address] [place] [address], [place] [address] Sep, [facility] [address] [id number] [address] [place] [address], [place] [address] Sep, [facility] [address] [id number] [address] [place] [address], [place] [address] Aug, [facility] [address] [id number] [address] [place] [address], [place] [address] Aug, [facility] [address] [id number] [address] [place] [address], [place] [address] Aug, [facility] [address] [id number] [address] [place] [address], [place] [address] Aug, [facility] [address] [id number] [address] [place] [address], [place] [address] Aug, [facility] [address] [id number] [address] [place] [address], [place] [address] Aug, [facility] [address] [id number] [address] [place] [address], [place] [address] Aug, [facility] [address] [id number] [address] [place] [address], [place] [address] Aug, [facility] [address] [id number] [address] [place] [address], [place] [address] Aug, [facility] [address] [id number] [address] [place] [address], [place] [address] Aug, [facility] [address] [id number] [address] [place] [address], [place] [address] Jul, [facility] [address] [id number] [address] [place] [address], [place] [address] 20 Jul, 2012 [facility] [address] [id number] [address] [place] [address], [place] [address] 10 Jul, 2012 [facility] [address] [id number] [address] [place] [address], [place] [address] 06 Jul, 2012 [facility] [address] [id number] [address] [place] [address], [place] [address] 30 Jun, 2012 [facility] [address] [id number] [address] [place] [address], [place] [address] Jun, [facility] [address] [id number] [address] [place] [address], [place] [address] 16 Jun, 2012 [facility] [address] [id number] [address] [place] [address], [place] [address] Jun, [facility] [address] [id number] [address] [place] [address] [place] [address] Jun, [facility] [address] [id number] [address] [place] [address], [place] [address] Jun, [facility] [address] [id number] [address] [place] [address], [place] [address] Jun, [facility] [address] [id number] [address] [place] [address], [place] [address] May, [facility] [address] [id number] [address] [place] [address], [place] [address] May, [facility] [address] [id number] [address] [place] [address], [place] [address] May, [facility] [address] [id number] [address] [place] [address], [place] [address] May, [facility] [address] [id number] [address] [place] [address], [place] [address] May, [facility] [address] [id number] [address] [place] [address], [place] [address] Apr, [facility] [address] [id number] [address] [place] [address], [place] [address] Apr, [facility] [address] [id number] [address] [place] [address], [place] [address] Apr, [facility] [address] [id number] [address] [place] [address], [place] [address] Apr, [facility] [address] [id number] [address] [place] [address], [place] [address] Apr, [facility] [address] [id number] [address] [place] [address], [place] [address] March, [facility] [address] [id number] [address] [place] [address], [place] [address] March, [facility] [address] [id number] [address] [place] [address], [place] [address] March, [facility] [address] [id number] [address] [place] [address], [place] [address] March, [facility] [address] [id number] [address] [place] [address], [place] [address] March, [facility] [address] [id number] [address] [place] [address], [place] [address] March, [facility] [address] [id number] [address] [place] [address], [place] [address] March, [facility] [address] [id number] [address] [place] [address], [place] [address] March, [facility] [address] [id number] [address] [place] [address], [place] [address] March, [facility] [address] [id number] [address] [place] [address], [place] [address] March, [facility] [address] [id number] [address] [place] [address], [place] [address] 30 Feb, 2012 [facility] [address] [id number] [address] [place] [address], [place] [address] Feb, [facility] [address] [id number] [address] [place] [address], [place] [address] Feb, [facility] [address] [id number] [address] [place] [address], [place] [address] Feb, [facility] [address] [id number] [address] [place] [address], [place] [address] 17 Feb, 2012 [facility] [address] [id number] [address] [place] [address], [place] [address] Feb, [facility] [address] [id number] [address] [place] [address], [place] [address] Feb, [facility] [address] [id number] [address] [place] [address], [place] [address] Feb, [facility] [address] [id number] [address] [place] [address], [place] [address] Feb, [facility] [address] [id number] [address] [place] [address], [place] [address] Jan, [facility] [address] [id number] [address] [place] [address], [place] [address] Jan, [facility] [address] [id number] [address] [place] [address], [place] [address] Jan, [facility] [address] [id number] [address] [place] [address], [place] [address] Jan, [facility] [address] [id number] [address] [place] [address], [place] [address] Dec, [facility] [address] [id number] [address] [place] [address], [place] [address] Dec, [facility] [address] [id number] [address] [place] [address], [place] [address] Nov, [facility] [address] [id number] [address] [place] [address], [place] [address] Nov, [facility] [address] [id number] [address] [place] [address], [place] [address] Nov, [facility] [address] [id number] [address] [place] [address], [place] [address] Nov, [facility] [address] [id number] [address] [place] [address], [place] [address] Nov, [facility] [address] [id number] [address] [place] [address], [place] [address] Oct, [facility] [address] [id number] [address] [place] [address], [place] [address] Oct, [facility] [address] [id number] [address] [place] [address], [place] [address] Oct, [facility] [address] [id number] [address] [place] [address], [place] [address] Oct, [facility] [address] [id number] [address] [place] [address] Oct, [facility] [address] [facility] [id number] [address] [place] [address] Oct, [facility] [address] [facility] [id number] [address] [place] [address] Oct, [facility] [address] [facility] [id number] [address] [place] [address] Oct, [facility] [address] [facility] [id number] [address] [place] [address] Sep, IMMUNIZATIONS No Known Immunizations SOCIAL HISTORY [...] History No Surgical history information Hospitalization History [facility]- Urosepsis, ab d pain and fever, discharged 11/27/2017 11/26/2017 Hospitalization History [facility]- Went Unrepsonsive, Hit head 2017 Hospitalization History [facility]- Back Pain 8
--- OUTSIDE RECORDS SUMMARY | 2020-06-18 14:45 | XMS REPORT ---
Author Author Sanjuanita Abdul Doctor Organization [facility] Address Unknown Phone Unavailable Care Team Providers Care Child Day Care Provider Name Role Phone Migration, Doctor Unavailable Unavailable PROBLEMS Type Condition ICD9-CM Code QAP28-XE Code Onset Dates Condition S tatus SNOMED Code Problem Hypertension I10 Active 7456693 3 Problem Hyperlipidemia E78.5 Active 76027 004 Problem Coronary artery disease I25.10 Active 30663718 Problem Low back pain M54.5 Active 289604 009 Problem Other chronic pain G89.29 Active 8 0581192 Problem Ventral hernia without obstruction or gangrene K43 .9 Active 605798890 Problem Type 2 diabetes mellitus wit hout complication, without long-term current use of insulin E11.9 Active 162594072 Problem Anxiety F41.9 Active 99723791 Problem Peripheral vascular disease I73.9 Ac tive 077328969 Problem Insomnia G47.00 Active 730164934 Problem Microcytic anemia D50.9 Active 23 6494185 Problem Pharyngeal dysphagia R13.13 Active 28154006946105 Problem Other iron deficiency anemia D50.8 A ctive 08565273 Problem Reactive depression F32.9 Active 34448060 Problem Paroxysmal atrial fibrillation I48.0 Active 260118535 Problem 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 Active 53471846 Problem Encounter for suprapubic catheter care Z43.5 Active 433878874 Problem Neurogenic bladder N31.9 Active 3 [id number] ALLERGIES No Information ENCOUNTERS Encounter Location Date Diagnosis [facility] [address] [facility] [id number] [address] [place] [address] Jan, Anxiety F41.9 and Strain of right shoulder, subsequent encounter S46.911D [facility] [address] [facility] [id number] [address] [place] [address] Jan, [facility] [address] [facility] [address] [place] [id number] Jan, Neurogenic bladder N31.9 [facility] [address] [facility] [id number] [address] [place] [address] Dec, [place] [address] [id number] [address] [place] [address] Dec, [place] [address] [id number] [address] [place] [address] Dec, Anxiety F41.9 and Strain of right shoulder, subsequent encounter S46.911D [place] [address] [id number] [address] [place] [address] 10 Dec, 2019 Other iron deficiency anemia D50.8 [place] [address] [id number] [address] [place] [address] 04 Dec, 2019 Via [facility] [address] [place] [id number] Dec, Encounter for suprapubic catheter care Z 43.5 and Microcytic anemia D50.9 [place] [address] [id number] [address] [place] [address] Dec, [place] [address] [id number] [address] [place] [address] Nov, Anxiety F41.9 and Strain of right shoulder, subsequent encounter S46.911D [place] [address] [id number] [address] [place] [address] Nov, Hypertension I10 [facility] [address] [place] [id number] Nov, Pneumonia of both lungs due to infectiou s organism, unspecified part of lung J18.9 and Suprapubic catheter Z93.59 [place] [address] [id number] [address] [place] [address] Nov, Hypertension I10 and Reactiv e depression F32.9 [place] [address] [id number] [address] [place] [address] Oct, Strain of right shoulder, scherer bsequent encounter S46.911D and Anxiety F41.9 [facility] [address] [id number] [address] [place] [address] 16 Oct, 2019 Via [facility] [address] [place] [id number] Oct, Suprapubic catheter Z93.59 and Candidias is, intertriginous B37.2 [facility] [address] [id number] [address] [place] [address] Oct, Suprapubic catheter Z93.59 [facility] [address] [id number] [address] [place] [address] Oct, Anxiety F41.9 and Strain of right shoulder, subsequent encounter S46.911D [facility] [address] [id number] [address] [place] [address] Sep, [facility] [address] [id number] [address] [place] [address] Sep, [facility] [address] [id number] [address] [place] [address] Sep, Via [facility] [address] [place] [id number] Sep, Suprapubic catheter Z93.59 [facility] [address] [id number] [address] [place] [address] Sep, Anxiety F41.9 and Strain of right shoulder, subsequent encounter S46.911D [facility] [address] [id number] [address] [place] [address] Aug, [facility] [address] [id number] [address] [place] [address] Aug, [facility] [address] [id number] [address] [place] [address] Aug, Anxiety F41.9 and Strain of right shoulder, subsequent encounter S46.911D [facility] [address] [place] [id number] Aug, Suprapubic catheter Z93.59 [facility] [address] [id number] [address] [place] [address] Jul, Strain of right shoulder, scherer bsequent encounter S46.911D and Anxiety F41.9 [facility] [address] [id number] [address] [place] [address] Jul, Anxiety F41.9 [place] [address] [id number] [address] [place] [address] Jun, [place] [address] [id number] [address] [place] [address] Jun, [place] [address] [id number] [address] [place] [address] Jun, [place] [address] [id number] [address] [place] [address] Jun, Strain of right shoulder, scherer bsequent encounter S46.911D [place] [address] [id number] [address] [place] [address] Jun, Strain of right shoulder, scherer bsequent encounter S46.911D [place] [address] [id number] [address] [place] [address] Jun, Anxiety F41.9 Via [facility] [address] [place] [id number] Jun, Neurogenic bladder N31.9 and Anxiety F41 .9 Via [facility] [address] [place] [id number] May, Anxiety F41.9 [place] [address] [id number] [address] [place] [address] May, Dysuria R30.0 [place] [address] [id number] [address] [place] [address] May, Strain of right shoulder, scherer bsequent encounter S46.911D and Anxiety F41.9 [place] [address] [id number] [address] [place] [address] 27 Apr, 2019 [facility] [address] [place] [id number] 18 Apr, 2019 Strain of right shoulder, subsequent enc ounter S46.911D [facility] [address] [id number] [address] [place] [address] 14 Apr, 2019 Strain of right shoulder, scherer bsequent encounter S46.911D and Anxiety F41.9 [facility] [address] [place] [id number] Apr, Type 2 diabetes mellitus without complic ation, without long-term current use of insulin E11.9 and Neurogenic bladder N31.9 [facility] [address] [place] [id number] Apr, Strain of right shoulder, subsequent enc ounter S46.911D ; History of GI bleed Z87.19 ; Neurogenic bladder N31.9 and Reactive depression F32.9 [place] [address] [id number] [address] [place] [address] Apr, Acute pain of left shoulder M25.512 [place] [address] [id number] [address] [place] [address] Apr, [place] [address] [id number] [address] [place] [address] Apr, Anxiety F41.9 and Other lunchroom 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 [facility] [address] [place] [id number] March, Gastrointestinal hemorrhage associated w ith acute gastritis K29.01 [place] [address] [id number] [address] [place] [address] March, Via [facility] [address] [place] [id number] March, Bronchitis J40 [place] [address] [id number] [address] [place] [address] March, Cough R05 [place] [address] [id number] [address] [place] [address] March, Other chronic pain G89.29 [facility] [address] [id number] [address] [place] [address] March, Anxiety F41.9 [facility] [address] [id number] [address] [place] [address] March, [facility] [address] [id number] [address] [place] [address] Feb, Other chronic pain G89.29 [facility] [address] [id number] [address] [place] [address] Feb, Anxiety F41.9 [facility] [address] [id number] [address] [place] [address] Feb, Other chronic pain G89.29 [facility] [address] [place] [id number] Feb, Neurogenic bladder N31.9 and Suprapubic catheter Z93.59 [facility] [address] [id number] [address] [place] [address] Jan, Anxiety F41.9 [facility] [address] [id number] [address] [place] [address] Dec, Anxiety F41.9 [facility] [address] [id number] [address] [place] [address] Dec, Other chronic pain G89.29 an d Anxiety F41.9 [facility] [address] [id number] [address] [place] [address] Dec, Via [employer] [facility] [address] [place] [id number] Dec, Neurogenic bladder N31.9 and Suprapubic catheter Z93.59 [facility] [address] [id number] [address] [place] [address] Nov, Other chronic pain G89.29 an d Anxiety F41.9 [facility] [address] [id number] [address] [place] [address] Nov, Via [employer] [facility] [address] [place] [id number] Nov, Suprapubic catheter Z93.59 [facility] [address] [id number] [address] [place] [address] Oct, Other chronic pain G89.29 an d Anxiety F41.9 [facility] [address] [id number] [address] [place] [address] Oct, [facility] [address] [id number] [address] [place] [address] Oct, Suprapubic catheter Z93.59 [facility] [address] [id number] [address] [place] [address] Oct, [facility] [address] [place] [id number] Oct, [facility] [address] [id number] [address] [place] [address] Oct, Anxiety F41.9 [facility] [address] [id number] [address] [place] [address] Oct, Anxiety F41.9 Via [facility] [address] [place] [id number] Oct, Other chronic pain G89.29 [facility] [address] [id number] [address] [place] [address] Sep, Other chronic pain G89.29 [facility] [address] [place] [id number] Sep, Suprapubic catheter Z93.59 and Cervicalg ia M54.2 [facility] [address] [id number] [address] [place] [address] Sep, [facility] [address] [id number] [address] [place] [address] Sep, [facility] [address] [id number] [address] [place] [address] Sep, Via [facility] [address] [place] [id number] Aug, Cystitis N30.90 [facility] [address] [id number] [address] [place] [address] Aug, [facility] [address] [id number] [address] [place] [address] Aug, Other chronic pain G89.29 [facility] [address] [id number] [address] [place] [address] Aug, Via [facility] [address] [place] [id number] Aug, Encounter for suprapubic catheter care Z 43.5 [facility] [address] [id number] [address] [place] [address] Jul, Via [facility] [address] [place] [id number] Jul, [facility] [address] [id number] [address] [place] [address] Jul, Other chronic pain G89.29 [facility] [address] [id number] [address] [place] [address] Jul, [facility] [address] [id number] [address] [place] [address] Jul, Via [facility] [address] [place] [id number] Jun, 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 [facility] [address] [id number] [address] [place] [address] Jun, Other chronic pain G89.29 [facility] [address] [id number] [address] [place] [address] Jun, Via [employer] [facility] [address] [place] [id number] May, Anxiety F41.9 ; Type 2 diabetes mellitus without complication, without long-term current use of insulin E11.9 ; Hypertension I10 ; Low back pain M54.5 ; Paroxysmal atrial fibrillation I48.0 and 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 [facility] [address] [id number] [address] [place] [address] May, Other chronic pain G89.29 [facility] [address] [place] [id number] May, Low back pain M54.5 [facility] [address] [id number] [address] [place] [address] May, [facility] [address] [id number] [address] [place] [address] Apr, Other chronic pain G89.29 [facility] [address] [id number] [address] [place] [address] Apr, [facility] [address] [id number] [address] [place] [address] Apr, Via [facility] [address] [place] [id number] Apr, Closed compression fracture of L3 lumbar vertebra with routine healing, subsequent encounter S32.030D [facility] [address] [place] [id number] Apr, Low back pain M54.5 [facility] [address] [place] [id number] Apr, Coccydynia M53.3 [facility] [address] [id number] [address] [place] [address] March, [facility] [address] [id number] [address] [place] [address] March, Other chronic pain G89.29 [facility] [address] [id number] [address] [place] [address] March, [facility] [address] [id number] [address] [place] [address] March, [facility] [address] [id number] [address] [place] [address] Feb, [facility] [address] [id number] [address] [place] [address] Feb, Other chronic pain G89.29 Via [facility] [address] [place] [id number] Feb, Other chronic pain G89.29 and Anxiety F4 1.9 [facility] [address] [id number] [address] [place] [address] Feb, [facility] [address] [id number] [address] [place] [address] Jan, [facility] [address] [id number] [address] [place] [address] Jan, [facility] [address] [id number] [address] [place] [address] Jan, [facility] [address] [id number] [address] [place] [address] Jan, [facility] [address] [id number] [address] [place] [address] Dec, Via [facility] [address] [place] [id number] Dec, Peripheral vascular disease I73.9 ; 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 ; Other chronic pain G89.29 ; Anxiety F41.9 ; Reactive depression F32.9 ; Insomnia G47.00 and Type 2 diabetes mellitus without complication, without long-term current use of insulin E11.9 [facility] [address] [id number] [place] [address] Nov, [facility] [address] [id number] [place] [id number] Nov, Anxiety F41.9 [facility] [address] [id number] [address] [place] [address] Nov, [facility] [address] [id number] [place] [id number] Nov, Anxiety F41.9 [facility] [address] [place] [id number] Nov, Status post surgery Z98.890 ; Confused R 41.0 ; Anxiety F41.9 and Other chronic pain G89.29 [facility] [address] [id number] [place] [id number] Nov, Other chronic pain G89.29 [facility] [address] [facility] [id number] [address] [place] [address] Oct, [facility] [address] [id number] [place] [id number] Oct, Other chronic pain G89.29 [facility] [address] [facility] [id number] [address] [place] [address] Oct, Anxiety F41.9 [facility] [address] [id number] [place] [id number] Sep, Other chronic pain G89.29 [facility] [address] [id number] [place] [id number] Sep, [facility] [address] [place] [id number] Aug, Dysuria R30.0 and Anxiety F41.9 [facility] [address] [id number] [address] [place] [address] Aug, [facility] [address] [id number] [place] [id number] Aug, Other chronic pain G89.29 [facility] [address] [facility] [id number] [address] [place] [address] Jul, Other chronic pain G89.29 [facility] [address] [id number] [place] [id number] Jun, [facility] [address] [id number] [place] [id number] Jun, Other chronic pain G89.29 [facility] [address] [id number] [address] [place] [address] Jun, [facility] [address] [facility] [id number] [address] [place] [address] May, Other chronic pain G89.29 [facility] [address] [facility] [id number] [address] [place] [address] Apr, Other chronic pain G89.29 [facility] [address] [place] [id number] Apr, Reactive depression F32.9 and Pharyngeal dysphagia R13.13 [facility] [address] [facility] [id number] [address] [place] [address] Apr, Urinary tract infection with out hematuria, site unspecified N39.0 [facility] [address] [facility] [id number] [address] [place] [address] March, Other chronic pain G89.29 [facility] [address] [facility] [id number] [address] [place] [address] Feb, Other chronic pain G89.29 [facility] [address] [facility] [id number] [address] [place] [address] Feb, [facility] [address] [id number] [place] [id number] Feb, [facility] [address] [place] [id number] Feb, Dysuria R30.0 and Ventral hernia without obstruction or gangrene K43.9 [facility] [address] [id number] [address] [place] [address] Jan, Other chronic pain G89.29 [facility] [address] [id number] [place] [id number] Dec, Other chronic pain G89.29 [facility] [address] [id number] [address] [place] [address] Nov, Other chronic pain G89.29 [facility] [address] [place] [id number] Nov, Lymphadenitis I88.9 [facility] [address] [id number] [address] [place] [address] Nov, Other chronic pain G89.29 [facility] [address] [id number] [address] [place] [address] Nov, [facility] [address] [id number] [place] [id number] Nov, Other chronic pain G89.29 [facility] [address] [place] [id number] Oct, Low back pain M54.5 ; Hypertension I10 a nd Type 2 diabetes mellitus without complication, without long-term current use of insulin E11.9 [facility] [address] [id number] [address] [place] [id number] Oct, [facility] [address] [id number] [address] [place] [id number] Oct, [facility] [address] [id number] [address] [place] [id number] Oct, [facility] [address] [id number] [address] [place] [id number] Oct, [facility] [address] [id number] [address] [place] [id number] Sep, [facility] [address] [id number] [address] [place] [id number] Sep, [facility] [address] [facility] [id number] [address] [place] [id number] Aug, Other chronic pain G89.29 [facility] [address] [id number] [address] [place] [id number] Jul, [facility] [address] [id number] [address] [place] [id number] Jul, [facility] [address] [id number] [address] [place] [id number] Jul, [facility] [address] [id number] [address] [place] [id number] Jun, [facility] [address] [id number] [address] [place] [id number] Jun, [facility] [address] [place] [id number] Jun, Low back pain M54.5 ; Other chronic pain G89.29 and Coronary artery disease I25.10 [facility] [address] [id number] [address] [place] [id number] Jun, [facility] [facility] [address] [id number] [address] [place] [id number] May, [facility] [address] [id number] [address] [place] [address] May, [facility] [address] [id number] [address] [place] [address] May, Other chronic pain G89.29 [facility] [address] [id number] [address] [place] [address] May, [facility] [address] [id number] [address] [place] [address] Apr, [facility] [address] [id number] [address] [place] [address] 17 Apr, 2016 Acute cystitis without hemat uria N30.00 [facility] [address] [id number] [address] [place] [address] 16 Apr, 2016 Acute cystitis without hemat uria N30.00 ; Coronary artery disease I25.10 ; Low back pain M54.5 and Other chronic pain G89.29 [facility] [address] [id number] [address] [place] [address] 13 Apr, 2016 Other chronic pain G89.29 [facility] [address] [id number] [address] [place] [address] March, Other chronic pain G89.29 [facility] [address] [id number] [address] [place] [id number] 18 Feb, 2016 [facility] [address] [id number] [address] [place] [id number] 15 Feb, 2016 Arthritis M19.90 [facility] [address] [id number] [address] [place] [address] Feb, [facility] [address] [id number] [address] [place] [address] 30 Jan, 2016 [facility] [address] [id number] [address] [place] [address] Jan, [facility] [address] [id number] [address] [place] [address] Jan, Other chronic pain G89.29 [facility] [address] [id number] [address] [place] [address] Jan, Hypertension I10 ; Coronary artery disease I25.10 and Insomnia G47.00 [facility] [address] [facility] [id number] [address] [place] [address] Jan, [facility] [address] [id number] [address] [place] [address] Dec, Right hip pain M25.551 [facility] [address] [id number] [address] [place] [address] Dec, [facility] [address] [facility] [id number] [address] [place] [address] Dec, [facility] [address] [facility] [id number] [address] [place] [address] Dec, [facility] [address] [id number] [address] [place] [address] Dec, Other chronic pain G89.29 [facility] [address] [id number] [address] [place] [address] Dec, [facility] [address] [id number] [address] [place] [address] Nov, [facility] [address] [id number] [address] [place] [address] Nov, Other chronic pain G89.29 [facility] [address] [id number] [address] [place] [address] Nov, Right hip pain M25.551 and C oronary artery disease I25.10 [facility] [address] [id number] [address] [place] [address] Nov, Other chronic pain G89.29 [facility] [address] [id number] [address] [place] [id number] Oct, [facility] [address] [id number] [address] [place] [address] Oct, [facility] [address] [id number] [address] [place] [address] Sep, [facility] [address] [id number] [address] [place] [address] Sep, [facility] [address] [id number] [address] [place] [address] Aug, [facility] [address] [id number] [address] [place] [address] Aug, Hypertension I10 ; Coronary artery disease I25.10 and Arthritis M19.90 [facility] [address] [id number] [address] [place] [address] Jun, [facility] [address] [id number] [address] [place] [address] Jun, Essential hypertension, jayson gn 401.1 ; Other chronic pain 338.29 and Chronic airway obstruction, not elsewhere classified 496 [facility] [address] [id number] [address] [place] [address], [place] [address] Jun, [facility] [address] [id number] [address] [place] [address], [place] [address] Jun, [facility] [address] [id number] [address] [place] [address], [place] [address] Jun, [facility] [address] [id number] [address] [place] [address], [place] [address] May, [facility] [address] [id number] [address] [place] [address], [place] [address] May, [facility] [address] [id number] [address] [place] [address], [place] [address] Apr, [facility] [address] [id number] [address] [place] [address], [place] [address] Apr, [facility] [address] [id number] [address] [place] [address], [place] [address] Apr, [facility] [address] [id number] [address] [place] [address], [place] [address] March, [facility] [address] [id number] [address] [place] [address] March, [facility] [address] [id number] [address] [place] [address], [place] [address] March, [facility] [address] [id number] [address] [place] [address] March, [facility] [address] [id number] [address] [place] [address] March, Sialadenitis 527.2 [facility] [address] [id number] [address] [place] [id number] Feb, [facility] [address] [id number] [address] [place] [address] Feb, [facility] [address] [id number] [address] [place] [address], [place] [address] 29 Feb, 2015 [facility] [address] [id number] [address] [place] [address], [place] [address] 14 Feb, 2015 [facility] [address] [id number] [address] [place] [address], [place] [address] Feb, [facility] [address] [id number] [address] [place] [address], [place] [address] Jan, [facility] [address] [id number] [address] [place] [address], [place] [address] Jan, [facility] [address] [id number] [address] [place] [address], [place] [address] Jan, [facility] [address] [id number] [address] [place] [address], [place] [address] Jan, [facility] [address] [id number] [address] [place] [address], [place] [address] Jan, [facility] [address] [id number] [address] [place] [address], [place] [address] Jan, [facility] [address] [id number] [address] [place] [address], [place] [address] Dec, 2014 [facility] [address] [id number] [address] [place] [address], [place] [address] Dec, 2014 [facility] [address] [id number] [address] [place] [address], [place] [address] Dec, 2014 [facility] [address] [id number] [address] [place] [address], [place] [address] Dec, 2014 [facility] [address] [id number] [address] [place] [address], [place] [address] Dec, 2014 [facility] [address] [id number] [address] [place] [address], [place] [address] Dec2014 [facility] [address] [id number] [address] [place] [address], [place] [address] Nov, [facility] [address] [id number] [address] [place] [address], [place] [address] Nov, [facility] [address] [id number] [address] [place] [address], [place] [address] Nov, [facility] [address] [id number] [address] [place] [address], [place] [address] Nov, [facility] [address] [id number] [address] [place] [address], [place] [address] Nov, [facility] [address] [id number] [address] [place] [address], [place] [address] Nov, [facility] [address] [id number] [address] [place] [address], [place] [address] Nov, [facility] [address] [id number] [address] [place] [address], [place] [address] Nov, [facility] [address] [id number] [address] [place] [address], [place] [address] Nov, [facility] [address] [id number] [address] [place] [address], [place] [address] Nov, [facility] [address] [id number] [address] [place] [address], [place] [address] Nov, [facility] [address] [id number] [address] [place] [address], [place] [address] Nov, [facility] [address] [id number] [address] [place] [address], [place] [address] Nov, [facility] [address] [id number] [address] [place] [address], [place] [address] Nov, [facility] [address] [id number] [address] [place] [address], [place] [address] Oct, [facility] [address] [id number] [address] [place] [address], [place] [address] 19 Oct, 2014 [facility] [address] [id number] [address] [place] [address], [place] [address] 19 Oct, 2014 [facility] [address] [id number] [address] [place] [address], [place] [address] 18 Oct, 2014 [facility] [address] [id number] [address] [place] [address], [place] [address] 18 Oct, 2014 [facility] [address] [id number] [address] [place] [address], [place] [address] Oct, [facility] [address] [id number] [address] [place] [address], [place] [address] 17 Oct, 2014 [facility] [address] [id number] [address] [place] [address], [place] [address] Oct, [facility] [address] [id number] [address] [place] [address], [place] [address] Oct, [facility] [address] [id number] [address] [place] [address], [place] [address] Sep, [facility] [address] [id number] [address] [place] [address], [place] [address] Sep, [facility] [address] [id number] [address] [place] [address], [place] [address] Sep, [facility] [address] [id number] [address] [place] [address], [place] [address] Sep, [facility] [address] [id number] [address] [place] [address], [place] [address] Sep, [facility] [address] [id number] [address] [place] [address], [place] [address] Sep, [facility] [address] [id number] [address] [place] [address], [place] [address] Sep, [facility] [address] [id number] [address] [place] [address], [place] [address] Sep, [facility] [address] [id number] [address] [place] [address], [place] [address] Sep, [facility] [address] [id number] [address] [place] [address], [place] [address] Sep, [facility] [address] [id number] [address] [place] [address], [place] [address] Sep, [facility] [address] [id number] [address] [place] [address], [place] [address] Sep, [facility] [address] [id number] [address] [place] [address], [place] [address] Aug, [facility] [address] [id number] [address] [place] [address], [place] [address] Aug, [facility] [address] [id number] [address] [place] [address], [place] [address] Aug, [facility] [address] [id number] [address] [place] [address], [place] [address] Aug, [facility] [address] [id number] [address] [place] [address], [place] [address] Aug, [facility] [address] [id number] [address] [place] [address], [place] [address] Aug, [facility] [address] [id number] [address] [place] [address], [place] [address] Aug, [facility] [address] [id number] [address] [place] [address], [place] [address] Aug, [facility] [address] [id number] [address] [place] [address], [place] [address] 30 Jul, 2014 [facility] [address] [id number] [address] [place] [address], [place] [address] 30 Jul, 2014 [facility] [address] [id number] [address] [place] [address], [place] [address] 30 Jul, 2013 [facility] [address] [id number] [address] [place] [address], [place] [address] 30 Jul, 2014 [facility] [address] [id number] [address] [place] [address], [place] [address] Jul, [facility] [address] [id number] [address] [place] [address], [place] [address] Jul, [facility] [address] [id number] [address] [place] [address], [place] [address] 15 Jul, 2014 [facility] [address] [id number] [address] [place] [address], [place] [address] 15 Jul, 2014 [facility] [address] [id number] [address] [place] [address], [place] [address] Jul, [facility] [address] [id number] [address] [place] [address], [place] [address] Jul, [facility] [address] [id number] [address] [place] [address], [place] [address] Jun, [facility] [address] [id number] [address] [place] [address], [place] [address] Jun, [facility] [address] [id number] [address] [place] [address], [place] [address] Jun, [facility] [address] [id number] [address] [place] [address], [place] [address] Jun, [facility] [address] [id number] [address] [place] [address], [place] [address] Jun, [facility] [address] [id number] [address] [place] [address], [place] [address] Jun, [facility] [address] [id number] [address] [place] [address], [place] [address] Jun, [facility] [address] [id number] [address] [place] [address], [place] [address] Jun, [facility] [address] [id number] [address] [place] [address], [place] [address] Jun, [facility] [address] [id number] [address] [place] [address], [place] [address] Jun, [facility] [address] [id number] [address] [place] [address], [place] [address] Jun, [facility] [address] [id number] [address] [place] [address], [place] [address] Jun, [facility] [address] [id number] [address] [place] [address], [place] [address] Jun, [facility] [address] [id number] [address] [place] [address], [place] [address] Jun, [facility] [address] [id number] [address] [place] [address], [place] [address] Jun, [facility] [address] [id number] [address] [place] [address], [place] [address] Jun, [facility] [address] [id number] [address] [place] [address], [place] [address] Jun, [facility] [address] [id number] [address] [place] [address], [place] [address] Jun, [facility] [address] [id number] [address] [place] [address], [place] [address] Jun, [facility] [address] [id number] [address] [place] [address], [place] [address] Jun, [facility] [address] [id number] [address] [place] [address], [place] [address] Jun, [facility] [address] [id number] [address] [place] [address], [place] [address] Jun, [facility] [address] [id number] [address] [place] [address], [place] [address] May, [facility] [address] [id number] [address] [place] [address], [place] [address] May, [facility] [address] [id number] [address] [place] [address], [place] [address] May, [facility] [address] [id number] [facility] [place] [address] May, 2013 [facility] [address] [id number] [facility] [place] [address] May, [facility] [address] [id number] [facility] [place] [address] May, 2013 [facility] [address] [id number] [facility] [place] [address] May, 2013 [facility] [address] [id number] [facility] [place] [address] May, 2013 [facility] [address] [id number] [facility] [place] [address] May, [facility] [address] [id number] [address] [place] [address], [place] [address] May, [facility] [address] [id number] [address] [place] [address], [place] [address] May, [facility] [address] [id number] [address] [place] [address], [place] [address] May, [facility] [address] [id number] [address] [place] [address], [place] [address] May, [facility] [address] [id number] [address] [place] [address], [place] [address] Apr, [facility] [address] [id number] [address] [place] [address], [place] [address] Apr, [facility] [address] [id number] [address] [place] [address], [place] [address] Apr, [facility] [address] [id number] [address] [place] [address], [place] [address] Apr, [facility] [address] [id number] [address] [place] [address], [place] [address] Apr, [facility] [address] [id number] [address] [place] [address], [place] [address] Apr, [facility] [address] [id number] [facility] [place] [address] Apr, [facility] [address] [id number] [facility] [place] [address] Apr, [facility] [address] [id number] [facility] [place] [address] Apr, [facility] [address] [id number] [address] [place] [address], [place] [address] March, [facility] [address] [id number] [address] [place] [address], [place] [address] March, [facility] [address] [id number] [address] [place] [address], [place] [address] March, [facility] [address] [id number] [address] [place] [address], [place] [address] March, [facility] [address] [id number] [address] [place] [address], [place] [address] March, [facility] [address] [id number] [address] [place] [address], [place] [address] March, [facility] [address] [id number] [address] [place] [address], [place] [address] March, [facility] [address] [id number] [address] [place] [address], [place] [address] March, [facility] [address] [id number] [address] [place] [address], [place] [address] March, [facility] [address] [id number] [address] [place] [address], [place] [address] March, [facility] [address] [id number] [address] [place] [address], [place] [address] March, [facility] [address] [id number] [address] [place] [address], [place] [address] March, [facility] [address] [id number] [address] [place] [address], [place] [address] March, [facility] [address] [id number] [address] [place] [address], [place] [address] March, [facility] [address] [id number] [address] [place] [address], [place] [address] March, [facility] [address] [id number] [address] [place] [address], [place] [address] March, [facility] [address] [id number] [address] [place] [address], [place] [address] March, [facility] [address] [id number] [address] [place] [address], [place] [address] March, [facility] [address] [id number] [address] [place] [address], [place] [address] March, [facility] [address] [id number] [address] [place] [address], [place] [address] March, [facility] [address] [id number] [address] [place] [address], [place] [address] Feb, [facility] [address] [id number] [address] [place] [address], [place] [address] Feb, [facility] [address] [id number] [address] [place] [address], [place] [address] Feb, [facility] [address] [id number] [address] [place] [address], [place] [address] Feb, [facility] [address] [id number] [address] [place] [address], [place] [address] Feb, [facility] [address] [id number] [address] [place] [address], [place] [address] Feb, [facility] [address] [id number] [address] [place] [address], [place] [address] Feb, [facility] [address] [id number] [address] [place] [address], [place] [address] Feb, [facility] [address] [id number] [facility] [place] [address] Jan, [facility] [address] [id number] [facility] [place] [address] Jan, [facility] [address] [id number] [facility] [place] [address] Jan, [facility] [address] [id number] [facility] [place] [address] 24 Jan, 2014 [facility] [address] [id number] [address] [place] [address], [place] [address] Jan, [facility] [address] [id number] [address] [place] [address], [place] [address] Jan, [facility] [address] [id number] [address] [place] [address], [place] [address] Jan, [facility] [address] [id number] [address] [place] [address], [place] [address] Jan, [facility] [address] [id number] [address] [place] [address], [place] [address] Jan, [facility] [address] [id number] [address] [place] [address], [place] [address] Jan, [facility] [address] [id number] [address] [place] [address], [place] [address] Dec, [facility] [address] [id number] [address] [place] [address], [place] [address] Dec, [facility] [address] [id number] [address] [place] [address], [place] [address] Dec, [facility] [address] [id number] [address] [place] [address], [place] [address] 2013 [facility] [address] [id number] [address] [place] [address], [place] [address] Dec, [facility] [address] [id number] [address] [place] [address], [place] [address] Dec, [facility] [address] [id number] [address] [place] [address], [place] [address] Dec, [facility] [address] [id number] [address] [place] [address], [place] [address] Dec, [facility] [address] [id number] [address] [place] [address], [place] [address] Nov, [facility] [address] [id number] [address] [place] [address], [place] [address] Nov, [facility] [address] [id number] [address] [place] [address], [place] [address] Nov, [facility] [address] [id number] [address] [place] [address], [place] [address] Nov, [facility] [address] [id number] [address] [place] [address], [place] [address] Nov, [facility] [address] [id number] [address] [place] [address], [place] [address] Nov, [facility] [address] [id number] [address] [place] [address], [place] [address] Nov, [facility] [address] [id number] [address] [place] [address], [place] [address] Nov, [facility] [address] [id number] [address] [place] [address], [place] [address] Nov, [facility] [address] [id number] [address] [place] [address], [place] [address] Nov, [facility] [address] [id number] [address] [place] [address], [place] [address] Nov, [facility] [address] [id number] [address] [place] [address], [place] [address] Nov, [facility] [address] [id number] [address] [place] [address], [place] [address] Nov, [facility] [address] [id number] [address] [place] [address], [place] [address] 30 Oct, 2013 [facility] [address] [id number] [address] [place] [address], [place] [address] Oct, [facility] [address] [id number] [address] [place] [address], [place] [address] Oct, [facility] [address] [id number] [address] [place] [address], [place] [address] Oct, [facility] [address] [id number] [address] [place] [address], [place] [address] Oct, [facility] [address] [id number] [address] [place] [address], [place] [address] Oct, [facility] [address] [id number] [address] [place] [address], [place] [address] Oct, [facility] [address] [id number] [address] [place] [address], [place] [address] Oct, [facility] [address] [id number] [address] [place] [address], [place] [address] Oct, [facility] [address] [id number] [address] [place] [address], [place] [address] Oct, [facility] [address] [id number] [address] [place] [address], [place] [address] Oct, [facility] [address] [id number] [address] [place] [address], [place] [address] Oct, [facility] [address] [id number] [address] [place] [address], [place] [address] Oct, [facility] [address] [id number] [address] [place] [address], [place] [address] Oct, [facility] [address] [id number] [address] [place] [address], [place] [address] 14 Sep, 2013 [facility] [address] [id number] [address] [place] [address], [place] [address] Sep, [facility] [address] [id number] [address] [place] [address], [place] [address] Sep, [facility] [address] [id number] [address] [place] [address] Sep, [facility] [address] [id number] [address] [place] [id number] Sep, [facility] [address] [id number] [address] [place] [id number] Sep, [facility] [address] [id number] [address] [place] [address], [place] [address] Sep, [facility] [address] [id number] [address] [place] [id number] Sep, [facility] [address] [id number] [address] [place] [id number] Sep, [facility] [address] [id number] [address] [place] [id number] Sep, [facility] [address] [id number] [address] [place] [id number] Aug, [facility] [address] [id number] [address] [place] [id number] Aug, [facility] [address] [id number] [address] [place] [id number] Aug, [facility] [address] [id number] [address] [place] [id number] Aug, [facility] [address] [id number] [address] [place] [address], [place] [address] Aug, [facility] [address] [id number] [address] [place] [id number] Aug, [facility] [address] [id number] [address] [place] [id number] Aug, [facility] [address] [id number] [address] [place] [address], [place] [address] 23 Aug, 2012 [facility] [address] [id number] [address] [place] [address], [place] [address] 22 Aug, 2012 [facility] [address] [id number] [address] [place] [address], [place] [address] 22 Aug, 2012 [facility] [address] [id number] [address] [place] [address], [place] [address] 18 Aug, 2012 [facility] [address] [id number] [address] [place] [address], [place] [address] 18 Aug, 2012 [facility] [address] [id number] [address] [place] [address], [place] [address] 18 Aug, 2013 [facility] [address] [id number] [address] [place] [address], [place] [address] 18 Aug, 2013 [facility] [address] [id number] [address] [place] [address], [place] [address] 17 Aug, 2012 [facility] [address] [id number] [address] [place] [address], [place] [address] 14 Aug, 2013 [facility] [address] [id number] [address] [place] [address], [place] [address] 14 Aug, 2013 [facility] [address] [id number] [address] [place] [address], [place] [address] 01 Aug, 2013 [facility] [address] [id number] [address] [place] [address], [place] [address] 20 Jul, 2012 [facility] [address] [id number] [address] [place] [address], [place] [address] 19 Sep, 2012 [facility] [address] [id number] [address] [place] [address], [place] [address] 18 Sep, 2012 [facility] [address] [id number] [address] [place] [address], [place] [address] 11 Jul, 2012 [facility] [address] [id number] [address] [place] [address], [place] [address] Jul, [facility] [address] [id number] [address] [place] [address], [place] [address] Jun, [facility] [address] [id number] [address] [place] [address], [place] [address] Jun, [facility] [address] [id number] [address] [place] [address], [place] [address] Jun, [facility] [address] [id number] [address] [place] [address], [place] [address] Jun, [facility] [address] [id number] [address] [place] [address], [place] [address] Jun, [facility] [address] [id number] [address] [place] [address], [place] [address] Jun, [facility] [address] [id number] [address] [place] [address], [place] [address] Jun, [facility] [address] [id number] [address] [place] [address], [place] [address] Jun, [facility] [address] [id number] [address] [place] [address], [place] [address] Jun, [facility] [address] [id number] [address] [place] [address], [place] [address] Jun, [facility] [address] [id number] [address] [place] [address], [place] [address] May, [facility] [address] [id number] [address] [place] [address], [place] [address] May, [facility] [address] [id number] [address] [place] [address], [place] [address] May, [facility] [address] [id number] [address] [place] [address], [place] [address] May, [facility] [address] [id number] [address] [place] [address], [place] [address] May, [facility] [address] [id number] [address] [place] [address], [place] [address] 16 May, 2013 [facility] [address] [id number] [address] [place] [address], [place] [address] May, [facility] [address] [id number] [address] [place] [address], [place] [address] May, [facility] [address] [id number] [address] [place] [address], [place] [address] May, [facility] [address] [id number] [address] [place] [address], [place] [address] Apr, [facility] [address] [id number] [address] [place] [address], [place] [address] Apr, [facility] [address] [id number] [address] [place] [address], [place] [address] Apr, [facility] [address] [id number] [address] [place] [address], [place] [address] Apr, [facility] [address] [id number] [address] [place] [address], [place] [address] Apr, [facility] [address] [id number] [address] [place] [address], [place] [address] Apr, [facility] [address] [id number] [address] [place] [address], [place] [address] Apr, [facility] [address] [id number] [address] [place] [address], [place] [address] March, [facility] [address] [id number] [address] [place] [address], [place] [address] Feb, [facility] [address] [id number] [address] [place] [address], [place] [address] Feb, [facility] [address] [id number] [address] [place] [address], [place] [address] Feb, [facility] [address] [id number] [address] [place] [address], [place] [address] Jan, [facility] [address] [id number] [address] [place] [address], [place] [address] 21 Jan, 2013 [facility] [address] [id number] [address] [place] [address], [place] [address] 19 Jan, 2013 [facility] [address] [id number] [address] [place] [address], [place] [address] 14 Jan, 2013 [facility] [address] [id number] [address] [place] [address], [place] [address] 12 Jan, 2013 [facility] [address] [id number] [address] [place] [address], [place] [address] 08 Jan, 2013 [facility] [address] [id number] [address] [place] [address], [place] [address] 07 Jan, 2013 [facility] [address] [id number] [address] [place] [address], [place] [address] 04 Jan, 2013 [facility] [address] [id number] [address] [place] [address], [place] [address] 28 Dec, 2012 [facility] [address] [id number] [address] [place] [address], [place] [address] 25 Dec, 2012 [facility] [address] [id number] [address] [place] [address], [place] [address] 13 Dec, 2012 [facility] [address] [id number] [address] [place] [address], [place] [address] 11 Dec, 2012 [facility] [address] [id number] [address] [place] [address], [place] [address] 07 Dec, 2012 [facility] [address] [id number] [address] [place] [address], [place] [address] 06 Dec, 2012 [facility] [address] [id number] [address] [place] [address], [place] [address] 05 Dec, 2012 [facility] [address] [id number] [address] [place] [address], [place] [address] Nov, [facility] [address] [id number] [address] [place] [address], [place] [address] Nov, [facility] [address] [id number] [address] [place] [address], [place] [address] 18 Nov, 2012 [facility] [address] [id number] [address] [place] [address], [place] [id number] 15 Nov, 2012 [facility] [address] [id number] [address] [place] [address], [place] [address] Nov, [facility] [address] [id number] [address] [place] [address], [place] [address] Nov, [facility] [address] [id number] [address] [place] [address], [place] [address] Nov, [facility] [address] [id number] [address] [place] [address], [place] [address] Oct, [facility] [address] [id number] [address] [place] [address], [place] [address] Oct, [facility] [address] [id number] [address] [place] [address], [place] [address] Oct, [facility] [address] [id number] [address] [place] [address], [place] [address] Oct, [facility] [address] [id number] [address] [place] [address], [place] [address] Oct, [facility] [address] [id number] [address] [place] [address], [place] [address] Oct, [facility] [address] [id number] [address] [place] [address], [place] [id number] Oct, [facility] [address] [id number] [address] [place] [address], [place] [address] Oct, [facility] [address] [id number] [address] [place] [address], [place] [address] 05 Oct, 2012 [facility] [address] [id number] [address] [place] [address], [place] [id number] 05 Oct, 2012 [facility] [address] [id number] [address] [place] [address], [place] [address] Oct, [facility] [address] [id number] [address] [place] [address], [place] [address] Oct, [facility] [address] [id number] [address] [place] [address], [place] [address] Sep, [facility] [address] [id number] [address] [place] [address], [place] [address] Sep, [facility] [address] [id number] [address] [place] [address], [place] [address] Sep, [facility] [address] [id number] [address] [place] [address], [place] [address] Sep, [facility] [address] [id number] [address] [place] [address], [place] [address] Sep, [facility] [address] [id number] [address] [place] [address], [place] [address] Sep, [facility] [address] [id number] [address] [place] [address], [place] [address] Sep, [facility] [address] [id number] [address] [place] [address], [place] [address] Sep, [facility] [address] [id number] [address] [place] [address], [place] [address] Sep, [facility] [address] [id number] [address] [place] [address], [place] [address] Sep, [facility] [address] [id number] [address] [place] [address], [place] [address] Sep, [facility] [address] [id number] [address] [place] [address], [place] [address] Aug, [facility] [address] [id number] [address] [place] [address], [place] [address] Aug, [facility] [address] [id number] [address] [place] [address], [place] [address] Aug, [facility] [address] [id number] [address] [place] [address], [place] [address] Aug, [facility] [address] [id number] [address] [place] [address], [place] [address] Aug, [facility] [address] [id number] [address] [place] [address], [place] [address] Aug, [facility] [address] [id number] [address] [place] [address], [place] [address] Aug, [facility] [address] [id number] [address] [place] [address], [place] [address] Aug, [facility] [address] [id number] [address] [place] [address], [place] [address] Aug, [facility] [address] [id number] [address] [place] [address], [place] [address] Aug, [facility] [address] [id number] [address] [place] [address], [place] [address] Jul, [facility] [address] [id number] [address] [place] [address], [place] [address] 20 Jul, 2012 [facility] [address] [id number] [address] [place] [address], [place] [address] 10 Jul, 2012 [facility] [address] [id number] [address] [place] [address], [place] [address] 06 Jul, 2012 [facility] [address] [id number] [address] [place] [address], [place] [address] 30 Jun, 2012 [facility] [address] [id number] [address] [place] [address], [place] [address] Jun, [facility] [address] [id number] [address] [place] [address], [place] [address] 16 Jun, 2012 [facility] [address] [id number] [address] [place] [address], [place] [address] Jun, [facility] [address] [id number] [address] [place] [address] [place] [address] Jun, [facility] [address] [id number] [address] [place] [address], [place] [address] Jun, [facility] [address] [id number] [address] [place] [address], [place] [address] Jun, [facility] [address] [id number] [address] [place] [address], [place] [address] May, [facility] [address] [id number] [address] [place] [address], [place] [address] May, [facility] [address] [id number] [address] [place] [address], [place] [address] May, [facility] [address] [id number] [address] [place] [address], [place] [address] May, [facility] [address] [id number] [address] [place] [address], [place] [address] May, [facility] [address] [id number] [address] [place] [address], [place] [address] Apr, [facility] [address] [id number] [address] [place] [address], [place] [address] Apr, [facility] [address] [id number] [address] [place] [address], [place] [address] Apr, [facility] [address] [id number] [address] [place] [address], [place] [address] Apr, [facility] [address] [id number] [address] [place] [address], [place] [address] Apr, [facility] [address] [id number] [address] [place] [address], [place] [address] March, [facility] [address] [id number] [address] [place] [address], [place] [address] March, [facility] [address] [id number] [address] [place] [address], [place] [address] March, [facility] [address] [id number] [address] [place] [address], [place] [address] March, [facility] [address] [id number] [address] [place] [address], [place] [address] March, [facility] [address] [id number] [address] [place] [address], [place] [address] March, [facility] [address] [id number] [address] [place] [address], [place] [address] March, [facility] [address] [id number] [address] [place] [address], [place] [address] March, [facility] [address] [id number] [address] [place] [address], [place] [address] March, [facility] [address] [id number] [address] [place] [address], [place] [address] March, [facility] [address] [id number] [address] [place] [address], [place] [address] 30 Feb, 2012 [facility] [address] [id number] [address] [place] [address], [place] [address] Feb, [facility] [address] [id number] [address] [place] [address], [place] [address] Feb, [facility] [address] [id number] [address] [place] [address], [place] [address] Feb, [facility] [address] [id number] [address] [place] [address], [place] [address] 17 Feb, 2012 [facility] [address] [id number] [address] [place] [address], [place] [address] Feb, [facility] [address] [id number] [address] [place] [address], [place] [address] Feb, [facility] [address] [id number] [address] [place] [address], [place] [address] Feb, [facility] [address] [id number] [address] [place] [address], [place] [address] Feb, [facility] [address] [id number] [address] [place] [address], [place] [address] Jan, [facility] [address] [id number] [address] [place] [address], [place] [address] Jan, [facility] [address] [id number] [address] [place] [address], [place] [address] Jan, [facility] [address] [id number] [address] [place] [address], [place] [address] Jan, [facility] [address] [id number] [address] [place] [address], [place] [address] Dec, [facility] [address] [id number] [address] [place] [address], [place] [address] Dec, [facility] [address] [id number] [address] [place] [address], [place] [address] Nov, [facility] [address] [id number] [address] [place] [address], [place] [address] Nov, [facility] [address] [id number] [address] [place] [address], [place] [id number] Nov, [facility] [address] [id number] [address] [place] [address], [place] [id number] Nov, [facility] [address] [id number] [address] [place] [address], [place] [phone] Nov, [facility] [address] [id number] [address] [place] [address], [place] [id number] Oct, [facility] [address] [id number] [address] [place] [address], [place] [phone] Oct, [facility] [address] [id number] [address] [place] [address], [place] [id number] Oct, [facility] [address] [id number] [address] [place] [address], [place] [id number] Oct, [facility] [address] [id number] [address] [place] [phone] Oct, [facility] [address] [facility] [id number] [address] [place] [phone] Oct, [facility] [address] [facility] [id number] [address] [place] [phone] Oct, [facility] [address] [facility] [id number] [address] [place] [phone] Oct, [facility] [address] [facility] [id number] [address] [place] [phone] Sep, IMMUNIZATIONS No Known Immunizations SOCIAL HISTORY [...] Hospitalization History [facility]- Urosepsis, ab d pain and fever, discharged 11/27/2017 11/26/2017 Hospitalization History [facility]- Went Unrepsonsive, Hit head 2017 Hospitalization History [facility]- Back Pain 8
--- OUTSIDE RECORDS SUMMARY | 2020-06-18 14:46 | XMS REPORT ---
Author Author Sanjuanita Abdul Doctor Organization [facility] Address Unknown Phone Unavailable Care Team Providers Care Accounts Payable Assistant Name Role Phone Migration, Doctor Unavailable Unavailable PROBLEMS Type Condition ICD9-CM Code CLL97-QF Code Onset Dates Condition S tatus SNOMED Code Problem Hypertension I10 Active 8223576 3 Problem Hyperlipidemia E78.5 Active 33470 004 Problem Coronary artery disease I25.10 Active 43355529 Problem Low back pain M54.5 Active 856220 009 Problem Other chronic pain G89.29 Active 8 1080255 Problem Ventral hernia without obstruction or gangrene K43 .9 Active 687441121 Problem Type 2 diabetes mellitus wit hout complication, without long-term current use of insulin E11.9 Active 226863580 Problem Anxiety F41.9 Active 99642206 Problem Peripheral vascular disease I73.9 Ac tive 439026577 Problem Insomnia G47.00 Active 973376001 Problem Microcytic anemia D50.9 Active 23 1072968 Problem Pharyngeal dysphagia R13.13 Active 34212719187023 Problem Other iron deficiency anemia D50.8 A ctive 13585526 Problem Reactive depression F32.9 Active 02626168 Problem Paroxysmal atrial fibrillation I48.0 Active 364933196 Problem 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 Active 91192488 Problem Encounter for suprapubic catheter care Z43.5 Active 064279377 Problem Neurogenic bladder N31.9 Active 3 39352829 ALLERGIES No Information ENCOUNTERS Encounter Location Date Diagnosis [facility] [address] [facility] [id number] [address] [place] [phone] Jan, Anxiety F41.9 and Strain of right shoulder, subsequent encounter S46.911D [facility] [address] [facility] [id number] [address] [place] [phone] Jan, [facility] [address] [facility] [address] [address] [place] [id number] Jan, Neurogenic bladder N31.9 [facility] [address] [facility] [id number] [address] [place] [phone] Dec, [place] [address] [id number] [address] [place] [phone] Dec, [place] [address] [id number] [address] [place] [phone] Dec, Anxiety F41.9 and Strain of right shoulder, subsequent encounter S46.911D [place] [address] [id number] [address] [place] [address] 10 Dec, 2019 Other iron deficiency anemia D50.8 [place] [address] [id number] [address] [place] [phone] 04 Dec, 2019 Via [facility] [address] [place] [id number] Dec, Encounter for suprapubic catheter care Z 43.5 and Microcytic anemia D50.9 [place] [address] [id number] [address] [place] [phone] Dec, [place] [address] [id number] [address] [place] [phone] Nov, Anxiety F41.9 and Strain of right shoulder, subsequent encounter S46.911D [place] [address] [id number] [address] [place] [address] Nov, Hypertension I10 Via [facility] [address] [place] [id number] Nov, Pneumonia of both lungs due to infectiou s organism, unspecified part of lung J18.9 and Suprapubic catheter Z93.59 [place] [address] [id number] [address] [place] [address] Nov, Hypertension I10 and Reactiv e depression F32.9 [place] [address] [id number] [address] [place] [address] Oct, Strain of right shoulder, scherer bsequent encounter S46.911D and Anxiety F41.9 [facility] [address] [id number] [address] [place] [phone] 16 Oct, 2019 Via [employer] [facility] [address] [place] [id number] Oct, Suprapubic catheter Z93.59 and Candidias is, intertriginous B37.2 [facility] [address] [id number] [address] [place] [phone] Oct, Suprapubic catheter Z93.59 [facility] [address] [id number] [address] [place] [phone] Oct, Anxiety F41.9 and Strain of right shoulder, subsequent encounter S46.911D [facility] [address] [id number] [address] [place] [phone] Sep, [facility] [address] [id number] [address] [place] [phone] Sep, [facility] [address] [id number] [address] [place] [phone] Sep, Via [facility] [address] [place] [id number] Sep, Suprapubic catheter Z93.59 [facility] [address] [id number] [address] [place] [address] Sep, Anxiety F41.9 and Strain of right shoulder, subsequent encounter S46.911D [facility] [address] [id number] [address] [place] [address] Aug, [facility] [address] [id number] [address] [place] [phone] Aug, [facility] [address] [id number] [address] [place] [address] Aug, Anxiety F41.9 and Strain of right shoulder, subsequent encounter S46.911D [facility] [address] [place] [id number] Aug, Suprapubic catheter Z93.59 [facility] [address] [id number] [address] [place] [address] Jul, Strain of right shoulder, scherer bsequent encounter S46.911D and Anxiety F41.9 [facility] [address] [id number] [address] [place] [address] Jul, Anxiety F41.9 [place] [address] [id number] [address] [place] [address] Jun, [place] [address] [id number] [address] [place] [address] Jun, [place] [address] [id number] [address] [place] [address] Jun, [place] [address] [id number] [address] [place] [address] Jun, Strain of right shoulder, scherer bsequent encounter S46.911D [place] [address] [id number] [address] [place] [address] Jun, Strain of right shoulder, scherer bsequent encounter S46.911D [place] [address] [id number] [address] [place] [address] Jun, Anxiety F41.9 Via [facility] [address] [place] [id number] Jun, Neurogenic bladder N31.9 and Anxiety F41 .9 [facility] [address] [place] [id number] May, Anxiety F41.9 [place] [address] [id number] [address] [place] [address] May, Dysuria R30.0 [place] [address] [id number] [address] [place] [address] May, Strain of right shoulder, scherer bsequent encounter S46.911D and Anxiety F41.9 [place] [address] [id number] [address] [place] [phone] 27 Apr, 2019 Via [facility] [address] [place] [id number] 18 Apr, 2019 Strain of right shoulder, subsequent enc ounter S46.911D [facility] [address] [id number] [address] [place] [address] 14 Apr, 2019 Strain of right shoulder, scherer bsequent encounter S46.911D and Anxiety F41.9 Via [facility] [address] [place] [id number] Apr, Type 2 diabetes mellitus without complic ation, without long-term current use of insulin E11.9 and Neurogenic bladder N31.9 [facility] [address] [place] [id number] Apr, Strain of right shoulder, subsequent enc ounter S46.911D ; History of GI bleed Z87.19 ; Neurogenic bladder N31.9 and Reactive depression F32.9 [place] [address] [id number] [address] [place] [address] Apr, Acute pain of left shoulder M25.512 [place] [address] [id number] [address] [place] [address] Apr, [place] [address] [id number] [address] [place] [address] Apr, Anxiety F41.9 and 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 [address] [place] [id number] March, Gastrointestinal hemorrhage associated w ith acute gastritis K29.01 [place] [address] [id number] [address] [place] [phone] March, Via [facility] [address] [place] [id number] March, Bronchitis J40 [place] [address] [id number] [address] [place] [address] March, Cough R05 [place] [address] [id number] [address] [place] [phone] March, Other chronic pain G89.29 [facility] [address] [id number] [address] [place] [address] March, Anxiety F41.9 [facility] [address] [id number] [address] [place] [phone] March, [facility] [address] [id number] [address] [place] [address] Feb, Other chronic pain G89.29 [facility] [address] [id number] [address] [place] [address] Feb, Anxiety F41.9 [facility] [address] [id number] [address] [place] [address] Feb, Other chronic pain G89.29 Via [facility] [address] [place] [id number] Feb, Neurogenic bladder N31.9 and Suprapubic catheter Z93.59 [facility] [address] [id number] [address] [place] [address] Jan, Anxiety F41.9 [facility] [address] [id number] [address] [place] [address] Dec, Anxiety F41.9 [facility] [address] [id number] [address] [place] [address] Dec, Other chronic pain G89.29 an d Anxiety F41.9 [facility] [address] [id number] [address] [place] [address] Dec, Via [employer] [facility] [address] [place] [id number] Dec, Neurogenic bladder N31.9 and Suprapubic catheter Z93.59 [facility] [address] [id number] [address] [place] [phone] Nov, Other chronic pain G89.29 an d Anxiety F41.9 [facility] [address] [id number] [address] [place] [address] Nov, Via [employer] [facility] [address] [place] [id number] Nov, Suprapubic catheter Z93.59 [facility] [address] [id number] [address] [place] [address] Oct, Other chronic pain G89.29 an d Anxiety F41.9 [facility] [address] [id number] [address] [place] [phone] Oct, [facility] [address] [id number] [address] [place] [address] Oct, Suprapubic catheter Z93.59 [facility] [address] [id number] [address] [place] [phone] Oct, Via [facility] [address] [place] [id number] Oct, [facility] [address] [id number] [address] [place] [phone] Oct, Anxiety F41.9 [facility] [address] [id number] [address] [place] [phone] Oct, Anxiety F41.9 [facility] [address] [place] [id number] Oct, Other chronic pain G89.29 [facility] [address] [id number] [address] [place] [address] Sep, Other chronic pain G89.29 Via [facility] [address] [place] [id number] Sep, Suprapubic catheter Z93.59 and Cervicalg ia M54.2 [facility] [address] [id number] [address] [place] [address] Sep, [facility] [address] [id number] [address] [place] [address] Sep, [facility] [address] [id number] [address] [place] [phone] Sep, Via [facility] [address] [place] [id number] Aug, Cystitis N30.90 [facility] [address] [id number] [address] [place] [address] Aug, [facility] [address] [id number] [address] [place] [address] Aug, Other chronic pain G89.29 [facility] [address] [id number] [address] [place] [phone] Aug, Via [facility] [address] [place] [id number] Aug, Encounter for suprapubic catheter care Z 43.5 [facility] [address] [id number] [address] [place] [phone] Jul, Via [facility] [address] [place] [id number] Jul, [facility] [address] [id number] [address] [place] [address] Jul, Other chronic pain G89.29 [facility] [address] [id number] [address] [place] [address] Jul, [facility] [address] [id number] [address] [place] [id number] Jul, Via [facility] [address] [place] [id number] Jun, 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 [facility] [address] [id number] [address] [place] [phone] Jun, Other chronic pain G89.29 [facility] [address] [id number] [address] [place] [address] Jun, Via [employer] [facility] [address] [place] [id number] May, Anxiety F41.9 ; Type 2 diabetes mellitus without complication, without long-term current use of insulin E11.9 ; Hypertension I10 ; Low back pain M54.5 ; Paroxysmal atrial fibrillation I48.0 and 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 [facility] [address] [id number] [address] [place] [address] May, Other chronic pain G89.29 Via [facility] [address] [place] [id number] May, Low back pain M54.5 [facility] [address] [id number] [address] [place] [address] May, [facility] [address] [id number] [address] [place] [address] Apr, Other chronic pain G89.29 [facility] [address] [id number] [address] [place] [address] Apr, [facility] [address] [id number] [address] [place] [address] Apr, Via [facility] [address] [place] [id number] Apr, Closed compression fracture of L3 lumbar vertebra with routine healing, subsequent encounter S32.030D [facility] [employer] [address] [place] [id number] Apr, Low back pain M54.5 [facility] [address] [place] [id number] Apr, Coccydynia M53.3 [facility] [address] [id number] [address] [place] [address] March, [facility] [address] [id number] [address] [place] [address] March, Other chronic pain G89.29 [facility] [address] [id number] [address] [place] [phone] March, [facility] [address] [id number] [address] [place] [address] March, [facility] [address] [id number] [address] [place] [address] Feb, [facility] [address] [id number] [address] [place] [address] Feb, Other chronic pain G89.29 Via [facility] [address] [place] [id number] Feb, Other chronic pain G89.29 and Anxiety F4 1.9 [facility] [address] [id number] [address] [place] [address] Feb, [facility] [address] [id number] [address] [place] [address] Jan, [facility] [address] [id number] [address] [place] [address] Jan, [facility] [address] [id number] [address] [place] [address] Jan, [facility] [address] [id number] [address] [place] [address] Jan, [facility] [address] [id number] [address] [place] [address] Dec, Via [facility] [address] [place] [id number] Dec, Peripheral vascular disease I73.9 ; 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 ; Other chronic pain G89.29 ; Anxiety F41.9 ; Reactive depression F32.9 ; Insomnia G47.00 and Type 2 diabetes mellitus without complication, without long-term current use of insulin E11.9 [facility] [address] [id number] [place] [address] Nov, [facility] [place] [address] [id number] [place] [id number] Nov, Anxiety F41.9 [facility] [address] [id number] [address] [place] [address] Nov, [facility] [place] [id number] [place] [id number] Nov, Anxiety F41.9 [facility] [address] [place] [id number] Nov, Status post surgery Z98.890 ; Confused R 41.0 ; Anxiety F41.9 and Other chronic pain G89.29 [facility] [place] [address] [id number] [place] [id number] Nov, Other chronic pain G89.29 [facility] [address] [facility] [id number] [address] [place] [phone] Oct, [facility] [place] [address] [id number] [place] [id number] Oct, Other chronic pain G89.29 [facility] [address] [facility] [id number] [address] [place] [phone] Oct, Anxiety F41.9 [facility] [place] [address] [id number] [place] [id number] Sep, Other chronic pain G89.29 [facility] [place] [address] [id number] [place] [id number] Sep, Via [facility] [address] [place] [id number] Aug, Dysuria R30.0 and Anxiety F41.9 [facility] [address] [id number] [address] [place] [address] Aug, [facility] [place] [address] [id number] [place] [id number] Aug, Other chronic pain G89.29 [facility] [address] [facility] [id number] [address] [place] [phone] Jul, Other chronic pain G89.29 [facility] [place] [address] [id number] [place] [id number] Jun, [facility] [place] [address] [id number] [place] [id number] Jun, Other chronic pain G89.29 [facility] [address] [id number] [address] [place] [address] Jun, [facility] [address] [facility] [id number] [address] [place] [address] May, Other chronic pain G89.29 [facility] [address] [facility] [id number] [address] [place] [address] Apr, Other chronic pain G89.29 Via [employer] [facility] [address] [place] [id number] Apr, Reactive depression F32.9 and Pharyngeal dysphagia R13.13 [facility] [address] [facility] [id number] [address] [place] [phone] Apr, Urinary tract infection with out hematuria, site unspecified N39.0 [facility] [address] [facility] [id number] [address] [place] [address] March, Other chronic pain G89.29 [facility] [address] [facility] [id number] [address] [place] [address] Feb, Other chronic pain G89.29 [facility] [address] [facility] [id number] [address] [place] [phone] Feb, [facility] [place] [address] [id number] [place] [id number] Feb, Via [facility] [address] [place] [id number] Feb, Dysuria R30.0 and Ventral hernia without obstruction or gangrene K43.9 [facility] [address] [id number] [address] [place] [address] Jan, Other chronic pain G89.29 [facility] [place] [address] [id number] [place] [id number] Dec, Other chronic pain G89.29 [facility] [address] [id number] [address] [place] [address] Nov, Other chronic pain G89.29 Via [facility] [address] [place] [id number] Nov, Lymphadenitis I88.9 [facility] [address] [id number] [address] [place] [address] Nov, Other chronic pain G89.29 [facility] [address] [id number] [address] [place] [phone] Nov, [facility] [place] [address] [id number] [place] [id number] Nov, Other chronic pain G89.29 Via [facility] [address] [place] [id number] Oct, Low back pain M54.5 ; Hypertension I10 a nd Type 2 diabetes mellitus without complication, without long-term current use of insulin E11.9 [facility] [address] [id number] [address] [place] [phone] Oct, [facility] [address] [id number] [address] [place] [phone] Oct, [facility] [address] [id number] [address] [place] [phone] Oct, [facility] [address] [id number] [address] [place] [id number] Oct, [facility] [address] [id number] [address] [place] [phone] Sep, [facility] [address] [id number] [address] [place] [id number] Sep, [facility] [address] [facility] [id number] [address] [place] [id number] Aug, Other chronic pain G89.29 [facility] [address] [id number] [address] [place] [id number] Jul, [facility] [address] [id number] [address] [place] [id number] Jul, [facility] [address] [id number] [address] [place] [id number] Jul, [facility] [address] [id number] [address] [place] [phone] Jun, [facility] [address] [id number] [address] [place] [id number] Jun, [facility] [address] [place] [id number] Jun, Low back pain M54.5 ; Other chronic pain G89.29 and Coronary artery disease I25.10 [facility] [address] [id number] [address] [place] [id number] Jun, [facility] [address] [id number] [address] [place] [id number] May, [facility] [address] [id number] [address] [place] [phone] May, [facility] [address] [id number] [address] [place] [address] May, Other chronic pain G89.29 [facility] [address] [id number] [address] [place] [address] May, [facility] [address] [id number] [address] [place] [address] Apr, [facility] [address] [id number] [address] [place] [address] 17 Apr, 2016 Acute cystitis without hemat uria N30.00 [facility] [address] [id number] [address] [place] [address] 16 Apr, 2016 Acute cystitis without hemat uria N30.00 ; Coronary artery disease I25.10 ; Low back pain M54.5 and Other chronic pain G89.29 [facility] [address] [id number] [address] [place] [address] 13 Apr, 2016 Other chronic pain G89.29 [facility] [address] [id number] [address] [place] [address] March, Other chronic pain G89.29 [facility] [address] [id number] [address] [place] [address] 18 Feb, 2016 [facility] [address] [id number] [address] [place] [address] 15 Feb, 2016 Arthritis M19.90 [facility] [address] [id number] [address] [place] [address] Feb, [facility] [address] [id number] [address] [place] [address] 30 Jan, 2016 [facility] [address] [id number] [address] [place] [phone] Jan, [facility] [address] [id number] [address] [place] [address] Jan, Other chronic pain G89.29 [facility] [address] [id number] [address] [place] [address] Jan, Hypertension I10 ; Coronary artery disease I25.10 and Insomnia G47.00 [facility] [address] [facility] [id number] [address] [place] [address] Jan, [facility] [address] [id number] [address] [place] [address] Dec, Right hip pain M25.551 [facility] [address] [id number] [address] [place] [address] Dec, [facility] [address] [facility] [id number] [address] [place] [address] Dec, [facility] [address] [facility] [id number] [address] [place] [address] Dec, [facility] [address] [id number] [address] [place] [address] Dec, Other chronic pain G89.29 [facility] [address] [id number] [address] [place] [address] Dec, [facility] [address] [id number] [address] [place] [address] Nov, [facility] [address] [id number] [address] [place] [address] Nov, Other chronic pain G89.29 [facility] [address] [id number] [address] [place] [address] Nov, Right hip pain M25.551 and C oronary artery disease I25.10 [facility] [address] [id number] [address] [place] [address] Nov, Other chronic pain G89.29 [facility] [address] [id number] [address] [place] [address] Oct, [facility] [address] [id number] [address] [place] [address] Oct, [facility] [address] [id number] [address] [place] [address] Sep, [facility] [address] [id number] [address] [place] [phone] Sep, [facility] [address] [id number] [address] [place] [address] Aug, [facility] [address] [id number] [address] [place] [address] Aug, Hypertension I10 ; Coronary artery disease I25.10 and Arthritis M19.90 [facility] [address] [id number] [address] [place] [address] Jun, [facility] [address] [id number] [address] [place] [address] Jun, Essential hypertension, jayson gn 401.1 ; Other chronic pain 338.29 and Chronic airway obstruction, not elsewhere classified 496 [facility] [address] [id number] [address] [place] [address], [place] [address] Jun, [facility] [address] [id number] [address] [place] [address], [place] [address] Jun, [facility] [address] [id number] [address] [place] [address], [place] [address] Jun, [facility] [address] [id number] [address] [place] [address], [place] [address] May, [facility] [address] [id number] [address] [place] [address], [place] [address] May, [facility] [address] [id number] [address] [place] [address], [place] [address] Apr, [facility] [address] [id number] [address] [place] [address], [place] [address] Apr, [facility] [address] [id number] [address] [place] [address], [place] [address] Apr, [facility] [address] [id number] [address] [place] [address], [place] [address] March, [facility] [address] [id number] [address] [place] [address] March, [facility] [address] [id number] [address] [place] [address], [place] [address] March, [facility] [address] [id number] [address] [place] [address] March, [facility] [address] [id number] [address] [place] [phone] March, Sialadenitis 527.2 [facility] [address] [id number] [address] [place] [address] Feb, [facility] [address] [id number] [address] [place] [phone] Feb, [facility] [address] [id number] [address] [place] [address], [place] [address] 29 Feb, 2015 [facility] [address] [id number] [address] [place] [address], [place] [address] 14 Feb, 2015 [facility] [address] [id number] [address] [place] [address], [place] [address] Feb, [facility] [address] [id number] [address] [place] [address], [place] [address] Jan, [facility] [address] [id number] [address] [place] [address], [place] [address] Jan, [facility] [address] [id number] [address] [place] [address], [place] [address] Jan, [facility] [address] [id number] [address] [place] [address], [place] [address] Jan, [facility] [address] [id number] [address] [place] [address], [place] [address] Jan, [facility] [address] [id number] [address] [place] [address], [place] [address] Jan, [facility] [address] [id number] [address] [place] [address], [place] [address] Dec, 2014 [facility] [address] [id number] [address] [place] [address], [place] [address] Dec, 2014 [facility] [address] [id number] [address] [place] [address], [place] [address] Dec, 2014 [facility] [address] [id number] [address] [place] [address], [place] [address] Dec, 2014 [facility] [address] [id number] [address] [place] [address], [place] [address] Dec, 2014 [facility] [address] [id number] [address] [place] [address], [place] [address] Dec2014 [facility] [address] [id number] [address] [place] [address], [place] [address] Nov, [facility] [address] [id number] [address] [place] [address], [place] [address] Nov, [facility] [address] [id number] [address] [place] [address], [place] [address] Nov, [facility] [address] [id number] [address] [place] [address], [place] [address] Nov, [facility] [address] [id number] [address] [place] [address], [place] [address] Nov, [facility] [address] [id number] [address] [place] [address], [place] [address] Nov, [facility] [address] [id number] [address] [place] [address], [place] [address] Nov, [facility] [address] [id number] [address] [place] [address], [place] [address] Nov, [facility] [address] [id number] [address] [place] [address], [place] [address] Nov, [facility] [address] [id number] [address] [place] [address], [place] [address] Nov, [facility] [address] [id number] [address] [place] [address], [place] [address] Nov, [facility] [address] [id number] [address] [place] [address], [place] [address] Nov, [facility] [address] [id number] [address] [place] [address], [place] [address] Nov, [facility] [address] [id number] [address] [place] [address], [place] [address] Nov, [facility] [address] [id number] [address] [place] [address], [place] [address] Oct, [facility] [address] [id number] [address] [place] [address], [place] [address] 19 Oct, 2014 [facility] [address] [id number] [address] [place] [address], [place] [address] 19 Oct, 2014 [facility] [address] [id number] [address] [place] [address], [place] [address] 18 Oct, 2014 [facility] [address] [id number] [address] [place] [address], [place] [address] 18 Oct, 2014 [facility] [address] [id number] [address] [place] [address], [place] [address] Oct, [facility] [address] [id number] [address] [place] [address], [place] [address] 17 Oct, 2014 [facility] [address] [id number] [address] [place] [address], [place] [address] Oct, [facility] [address] [id number] [address] [place] [address], [place] [address] Oct, [facility] [address] [id number] [address] [place] [address], [place] [address] Sep, [facility] [address] [id number] [address] [place] [address], [place] [address] Sep, [facility] [address] [id number] [address] [place] [address], [place] [address] Sep, [facility] [address] [id number] [address] [place] [address], [place] [address] Sep, [facility] [address] [id number] [address] [place] [address], [place] [address] Sep, [facility] [address] [id number] [address] [place] [address], [place] [address] Sep, [facility] [address] [id number] [address] [place] [address], [place] [address] Sep, [facility] [address] [id number] [address] [place] [address], [place] [address] Sep, [facility] [address] [id number] [address] [place] [address], [place] [address] Sep, [facility] [address] [id number] [address] [place] [address], [place] [address] Sep, [facility] [address] [id number] [address] [place] [address], [place] [address] Sep, [facility] [address] [id number] [address] [place] [address], [place] [address] Sep, [facility] [address] [id number] [address] [place] [address], [place] [address] Aug, [facility] [address] [id number] [address] [place] [address], [place] [address] Aug, [facility] [address] [id number] [address] [place] [address], [place] [address] Aug, [facility] [address] [id number] [address] [place] [address], [place] [address] Aug, [facility] [address] [id number] [address] [place] [address], [place] [address] Aug, [facility] [address] [id number] [address] [place] [address], [place] [address] Aug, [facility] [address] [id number] [address] [place] [address], [place] [address] Aug, [facility] [address] [id number] [address] [place] [address], [place] [address] Aug, [facility] [address] [id number] [address] [place] [address], [place] [address] 30 Jul, 2014 [facility] [address] [id number] [address] [place] [address], [place] [address] 30 Jul, 2014 [facility] [address] [id number] [address] [place] [address], [place] [address] 30 Jul, 2013 [facility] [address] [id number] [address] [place] [address], [place] [address] 30 Jul, 2014 [facility] [address] [id number] [address] [place] [address], [place] [address] Jul, [facility] [address] [id number] [address] [place] [address], [place] [address] Jul, [facility] [address] [id number] [address] [place] [address], [place] [address] 15 Jul, 2014 [facility] [address] [id number] [address] [place] [address], [place] [address] 15 Jul, 2014 [facility] [address] [id number] [address] [place] [address], [place] [address] Jul, [facility] [address] [id number] [address] [place] [address], [place] [address] Jul, [facility] [address] [id number] [address] [place] [address], [place] [address] Jun, [facility] [address] [id number] [address] [place] [address], [place] [address] Jun, [facility] [address] [id number] [address] [place] [address], [place] [address] Jun, [facility] [address] [id number] [address] [place] [address], [place] [address] Jun, [facility] [address] [id number] [address] [place] [address], [place] [address] Jun, [facility] [address] [id number] [address] [place] [address], [place] [address] Jun, [facility] [address] [id number] [address] [place] [address], [place] [address] Jun, [facility] [address] [id number] [address] [place] [address], [place] [address] Jun, [facility] [address] [id number] [address] [place] [address], [place] [address] Jun, [facility] [address] [id number] [address] [place] [address], [place] [address] Jun, [facility] [address] [id number] [address] [place] [address], [place] [address] Jun, [facility] [address] [id number] [address] [place] [address], [place] [address] Jun, [facility] [address] [id number] [address] [place] [address], [place] [address] Jun, [facility] [address] [id number] [address] [place] [address], [place] [address] Jun, [facility] [address] [id number] [address] [place] [address], [place] [address] Jun, [facility] [address] [id number] [address] [place] [address], [place] [address] Jun, [facility] [address] [id number] [address] [place] [address], [place] [address] Jun, [facility] [address] [id number] [address] [place] [address], [place] [address] Jun, [facility] [address] [id number] [address] [place] [address], [place] [address] Jun, [facility] [address] [id number] [address] [place] [address], [place] [address] Jun, [facility] [address] [id number] [address] [place] [address], [place] [address] Jun, [facility] [address] [id number] [address] [place] [address], [place] [address] Jun, [facility] [address] [id number] [address] [place] [address], [place] [address] May, [facility] [address] [id number] [address] [place] [address], [place] [address] May, [facility] [address] [id number] [address] [place] [address], [place] [address] May, [facility] [address] [id number] [facility] [place] [address] May, 2013 [facility] [address] [id number] [facility] [place] [address] May, [facility] [address] [id number] [facility] [place] [address] May, 2013 [facility] [address] [id number] [facility] [place] [address] May, 2013 [facility] [address] [id number] [facility] [place] [address] May, 2013 [facility] [address] [id number] [facility] [place] [address] May, [facility] [address] [id number] [address] [place] [address], [place] [address] May, [facility] [address] [id number] [address] [place] [address], [place] [address] May, [facility] [address] [id number] [address] [place] [address], [place] [address] May, [facility] [address] [id number] [address] [place] [address], [place] [address] May, [facility] [address] [id number] [address] [place] [address], [place] [address] Apr, [facility] [address] [id number] [address] [place] [address], [place] [address] Apr, [facility] [address] [id number] [address] [place] [address], [place] [address] Apr, [facility] [address] [id number] [address] [place] [address], [place] [address] Apr, [facility] [address] [id number] [address] [place] [address], [place] [address] Apr, [facility] [address] [id number] [address] [place] [address], [place] [address] Apr, [facility] [address] [id number] [facility] [place] [address] Apr, [facility] [address] [id number] [facility] [place] [address] Apr, [facility] [address] [id number] [facility] [place] [address] Apr, [facility] [address] [id number] [address] [place] [address], [place] [address] March, [facility] [address] [id number] [address] [place] [address], [place] [address] March, [facility] [address] [id number] [address] [place] [address], [place] [address] March, [facility] [address] [id number] [address] [place] [address], [place] [address] March, [facility] [address] [id number] [address] [place] [address], [place] [address] March, [facility] [address] [id number] [address] [place] [address], [place] [address] March, [facility] [address] [id number] [address] [place] [address], [place] [address] March, [facility] [address] [id number] [address] [place] [address], [place] [address] March, [facility] [address] [id number] [address] [place] [address], [place] [address] March, [facility] [address] [id number] [address] [place] [address], [place] [address] March, [facility] [address] [id number] [address] [place] [address], [place] [address] March, [facility] [address] [id number] [address] [place] [address], [place] [address] March, [facility] [address] [id number] [address] [place] [address], [place] [address] March, [facility] [address] [id number] [address] [place] [address], [place] [address] March, [facility] [address] [id number] [address] [place] [address], [place] [address] March, [facility] [address] [id number] [address] [place] [address], [place] [address] March, [facility] [address] [id number] [address] [place] [address], [place] [address] March, [facility] [address] [id number] [address] [place] [address], [place] [address] March, [facility] [address] [id number] [address] [place] [address], [place] [address] March, [facility] [address] [id number] [address] [place] [address], [place] [address] March, [facility] [address] [id number] [address] [place] [address], [place] [address] Feb, [facility] [address] [id number] [address] [place] [address], [place] [address] Feb, [facility] [address] [id number] [address] [place] [address], [place] [address] Feb, [facility] [address] [id number] [address] [place] [address], [place] [address] Feb, [facility] [address] [id number] [address] [place] [address], [place] [address] Feb, [facility] [address] [id number] [address] [place] [address], [place] [address] Feb, [facility] [address] [id number] [address] [place] [address], [place] [address] Feb, [facility] [address] [id number] [address] [place] [address], [place] [address] Feb, [facility] [address] [id number] [facility] [place] [address] Jan, [facility] [address] [id number] [facility] [place] [address] Jan, [facility] [address] [id number] [facility] [place] [address] Jan, [facility] [address] [id number] [facility] [place] [address] 24 Jan, 2014 [facility] [address] [id number] [address] [place] [address], [place] [address] Jan, [facility] [address] [id number] [address] [place] [address], [place] [address] Jan, [facility] [address] [id number] [address] [place] [address], [place] [address] Jan, [facility] [address] [id number] [address] [place] [address], [place] [address] Jan, [facility] [address] [id number] [address] [place] [address], [place] [address] Jan, [facility] [address] [id number] [address] [place] [address], [place] [address] Jan, [facility] [address] [id number] [address] [place] [address], [place] [address] Dec, [facility] [address] [id number] [address] [place] [address], [place] [address] Dec, [facility] [address] [id number] [address] [place] [address], [place] [address] Dec, [facility] [address] [id number] [address] [place] [address], [place] [address] 2013 [facility] [address] [id number] [address] [place] [address], [place] [address] Dec, [facility] [address] [id number] [address] [place] [address], [place] [address] Dec, [facility] [address] [id number] [address] [place] [address], [place] [address] Dec, [facility] [address] [id number] [address] [place] [address], [place] [address] Dec, [facility] [address] [id number] [address] [place] [address], [place] [address] Nov, [facility] [address] [id number] [address] [place] [address], [place] [address] Nov, [facility] [address] [id number] [address] [place] [address], [place] [address] Nov, [facility] [address] [id number] [address] [place] [address], [place] [address] Nov, [facility] [address] [id number] [address] [place] [address], [place] [address] Nov, [facility] [facility] [address] [id number] [address] [place] [address], [place] [address] Nov, [facility] [address] [id number] [address] [place] [address], [place] [address] Nov, [facility] [address] [id number] [address] [place] [address], [place] [address] Nov, [facility] [address] [id number] [address] [place] [address], [place] [address] Nov, [facility] [address] [id number] [address] [place] [address], [place] [address] Nov, [facility] [address] [id number] [address] [place] [address], [place] [address] Nov, [facility] [address] [id number] [address] [place] [address], [place] [address] Nov, [facility] [address] [id number] [address] [place] [address], [place] [address] Nov, [facility] [address] [id number] [address] [place] [address], [place] [address] 30 Oct, 2013 [facility] [address] [id number] [address] [place] [address], [place] [address] Oct, [facility] [address] [id number] [address] [place] [address], [place] [address] Oct, [facility] [address] [id number] [address] [place] [address], [place] [address] Oct, [facility] [address] [id number] [address] [place] [address], [place] [address] Oct, [facility] [address] [id number] [address] [place] [address], [place] [address] Oct, [facility] [address] [id number] [address] [place] [address], [place] [address] Oct, [facility] [address] [id number] [address] [place] [address], [place] [address] Oct, [facility] [address] [id number] [address] [place] [address], [place] [address] Oct, [facility] [address] [id number] [address] [place] [address], [place] [address] Oct, [facility] [address] [id number] [address] [place] [address], [place] [address] Oct, [facility] [address] [id number] [address] [place] [address], [place] [address] Oct, [facility] [address] [id number] [address] [place] [address], [place] [address] Oct, [facility] [address] [id number] [address] [place] [address], [place] [address] Oct, [facility] [address] [id number] [address] [place] [address], [place] [address] 14 Sep, 2013 [facility] [address] [id number] [address] [place] [address], [place] [address] Sep, [facility] [address] [id number] [address] [place] [address], [place] [address] Sep, [facility] [address] [id number] [address] [place] [address] Sep, [facility] [address] [id number] [address] [place] [address] Sep, [facility] [address] [id number] [address] [place] [address] Sep, [facility] [address] [id number] [address] [place] [address], [place] [address] Sep, [facility] [address] [id number] [address] [place] [address] Sep, [facility] [address] [id number] [address] [place] [address] Sep, [facility] [address] [id number] [address] [place] [address] Sep, [facility] [address] [id number] [address] [place] [address] Aug, [facility] [address] [id number] [address] [place] [address] Aug, [facility] [address] [id number] [address] [place] [address] Aug, [facility] [address] [id number] [address] [place] [address] Aug, [facility] [address] [id number] [address] [place] [address], [place] [address] Aug, [facility] [address] [id number] [address] [place] [address] Aug, [facility] [address] [id number] [address] [place] [address] Aug, [facility] [address] [id number] [address] [place] [address], [place] [address] 23 Aug, 2012 [facility] [address] [id number] [address] [place] [address], [place] [address] 22 Aug, 2012 [facility] [address] [id number] [address] [place] [address], [place] [address] 22 Aug, 2012 [facility] [address] [id number] [address] [place] [address], [place] [address] 18 Aug, 2012 [facility] [address] [id number] [address] [place] [address], [place] [address] 18 Aug, 2012 [facility] [address] [id number] [address] [place] [address], [place] [address] 18 Aug, 2013 [facility] [address] [id number] [address] [place] [address], [place] [address] 18 Aug, 2013 [facility] [address] [id number] [address] [place] [address], [place] [address] 17 Aug, 2012 [facility] [address] [id number] [address] [place] [address], [place] [address] 14 Aug, 2013 [facility] [address] [id number] [address] [place] [address], [place] [address] 14 Aug, 2013 [facility] [address] [id number] [address] [place] [address], [place] [address] 01 Aug, 2013 [facility] [address] [id number] [address] [place] [address], [place] [address] 20 Jul, 2012 [facility] [address] [id number] [address] [place] [address], [place] [address] 19 Sep, 2012 [facility] [address] [id number] [address] [place] [address], [place] [address] 18 Sep, 2012 [facility] [address] [id number] [address] [place] [address], [place] [address] 11 Jul, 2012 [facility] [address] [id number] [address] [place] [address], [place] [address] Jul, [facility] [address] [id number] [address] [place] [address], [place] [address] Jun, [facility] [address] [id number] [address] [place] [address], [place] [address] Jun, [facility] [address] [id number] [address] [place] [address], [place] [address] Jun, [facility] [address] [id number] [address] [place] [address], [place] [address] Jun, [facility] [address] [id number] [address] [place] [address], [place] [address] Jun, [facility] [address] [id number] [address] [place] [address], [place] [address] Jun, [facility] [address] [id number] [address] [place] [address], [place] [address] Jun, [facility] [address] [id number] [address] [place] [address], [place] [address] Jun, [facility] [address] [id number] [address] [place] [address], [place] [address] Jun, [facility] [address] [id number] [address] [place] [address], [place] [address] Jun, [facility] [address] [id number] [address] [place] [address], [place] [address] May, [facility] [address] [id number] [address] [place] [address], [place] [address] May, [facility] [address] [id number] [address] [place] [address], [place] [address] May, [facility] [address] [id number] [address] [place] [address], [place] [address] May, [facility] [address] [id number] [address] [place] [address], [place] [address] May, [facility] [address] [id number] [address] [place] [address], [place] [address] 16 May, 2013 [facility] [address] [id number] [address] [place] [address], [place] [address] May, [facility] [address] [id number] [address] [place] [address], [place] [address] May, [facility] [address] [id number] [address] [place] [address], [place] [address] May, [facility] [address] [id number] [address] [place] [address], [place] [address] Apr, [facility] [address] [id number] [address] [place] [address], [place] [address] Apr, [facility] [address] [id number] [address] [place] [address], [place] [address] Apr, [facility] [address] [id number] [address] [place] [address], [place] [address] Apr, [facility] [address] [id number] [address] [place] [address], [place] [address] Apr, [facility] [address] [id number] [address] [place] [address], [place] [address] Apr, [facility] [address] [id number] [address] [place] [address], [place] [address] Apr, [facility] [address] [id number] [address] [place] [address], [place] [address] March, [facility] [address] [id number] [address] [place] [address], [place] [address] Feb, [facility] [address] [id number] [address] [place] [address], [place] [address] Feb, [facility] [address] [id number] [address] [place] [address], [place] [address] Feb, [facility] [address] [id number] [address] [place] [address], [place] [address] Jan, [facility] [address] [id number] [address] [place] [address], [place] [address] 21 Jan, 2013 [facility] [address] [id number] [address] [place] [address], [place] [address] 19 Jan, 2013 [facility] [address] [id number] [address] [place] [address], [place] [address] 14 Jan, 2013 [facility] [address] [id number] [address] [place] [address], [place] [address] 12 Jan, 2013 [facility] [address] [id number] [address] [place] [address], [place] [address] 08 Jan, 2013 [facility] [address] [id number] [address] [place] [address], [place] [address] 07 Jan, 2013 [facility] [address] [id number] [address] [place] [address], [place] [address] 04 Jan, 2013 [facility] [address] [id number] [address] [place] [address], [place] [address] 28 Dec, 2012 [facility] [address] [id number] [address] [place] [address], [place] [address] 25 Dec, 2012 [facility] [address] [id number] [address] [place] [address], [place] [address] 13 Dec, 2012 [facility] [address] [id number] [address] [place] [address], [place] [address] 11 Dec, 2012 [facility] [address] [id number] [address] [place] [address], [place] [address] 07 Dec, 2012 [facility] [address] [id number] [address] [place] [address], [place] [address] 06 Dec, 2012 [facility] [address] [id number] [address] [place] [address], [place] [address] 05 Dec, 2012 [facility] [address] [id number] [address] [place] [address], [place] [address] Nov, [facility] [address] [id number] [address] [place] [address], [place] [address] Nov, [facility] [address] [id number] [address] [place] [address], [place] [address] 18 Nov, 2012 [facility] [address] [id number] [address] [place] [address], [place] [address] 15 Nov, 2012 [facility] [address] [id number] [address] [place] [address], [place] [address] Nov, [facility] [address] [id number] [address] [place] [address], [place] [address] Nov, [facility] [address] [id number] [address] [place] [address], [place] [address] Nov, [facility] [address] [id number] [address] [place] [address], [place] [address] Oct, [facility] [address] [id number] [address] [place] [address], [place] [address] Oct, [facility] [address] [id number] [address] [place] [address], [place] [address] Oct, [facility] [address] [id number] [address] [place] [address], [place] [address] Oct, [facility] [address] [id number] [address] [place] [address], [place] [address] Oct, [facility] [address] [id number] [address] [place] [address], [place] [address] Oct, [facility] [address] [id number] [address] [place] [address], [place] [address] Oct, [facility] [address] [id number] [address] [place] [address], [place] [address] Oct, [facility] [address] [id number] [address] [place] [address], [place] [address] 05 Oct, 2012 [facility] [address] [id number] [address] [place] [address], [place] [address] 05 Oct, 2012 [facility] [address] [id number] [address] [place] [address], [place] [address] Oct, [facility] [address] [id number] [address] [place] [address], [place] [address] Oct, [facility] [address] [id number] [address] [place] [address], [place] [address] Sep, [facility] [address] [id number] [address] [place] [address], [place] [address] Sep, [facility] [address] [id number] [address] [place] [address], [place] [address] Sep, [facility] [address] [id number] [address] [place] [address], [place] [address] Sep, [facility] [address] [id number] [address] [place] [address], [place] [address] Sep, [facility] [address] [id number] [address] [place] [address], [place] [address] Sep, [facility] [address] [id number] [address] [place] [address], [place] [address] Sep, [facility] [address] [id number] [address] [place] [address], [place] [address] Sep, [facility] [address] [id number] [address] [place] [address], [place] [address] Sep, [facility] [address] [id number] [address] [place] [address], [place] [address] Sep, [facility] [address] [id number] [address] [place] [address], [place] [address] Sep, [facility] [address] [id number] [address] [place] [address], [place] [address] Aug, [facility] [address] [id number] [address] [place] [address], [place] [address] Aug, [facility] [address] [id number] [address] [place] [address], [place] [address] Aug, [facility] [address] [id number] [address] [place] [address], [place] [address] Aug, [facility] [address] [id number] [address] [place] [address], [place] [address] Aug, [facility] [address] [id number] [address] [place] [address], [place] [address] Aug, [facility] [address] [id number] [address] [place] [address], [place] [address] Aug, [facility] [address] [id number] [address] [place] [address], [place] [address] Aug, [facility] [address] [id number] [address] [place] [address], [place] [address] Aug, [facility] [address] [id number] [address] [place] [address], [place] [address] Aug, [facility] [address] [id number] [address] [place] [address], [place] [address] Jul, [facility] [address] [id number] [address] [place] [address], [place] [address] 20 Jul, 2012 [facility] [address] [id number] [address] [place] [address], [place] [address] 10 Jul, 2012 [facility] [address] [id number] [address] [place] [address], [place] [address] 06 Jul, 2012 [facility] [address] [id number] [address] [place] [address], [place] [address] 30 Jun, 2012 [facility] [address] [id number] [address] [place] [address], [place] [address] Jun, [facility] [address] [id number] [address] [place] [address], [place] [address] 16 Jun, 2012 [facility] [address] [id number] [address] [place] [address], [place] [address] Jun, [facility] [address] [id number] [address] [place] [address] [place] [address] Jun, [facility] [address] [id number] [address] [place] [address], [place] [address] Jun, [facility] [address] [id number] [address] [place] [address], [place] [address] Jun, [facility] [address] [id number] [address] [place] [address], [place] [address] May, [facility] [address] [id number] [address] [place] [address], [place] [address] May, [facility] [address] [id number] [address] [place] [address], [place] [address] May, [facility] [address] [id number] [address] [place] [address], [place] [address] May, [facility] [address] [id number] [address] [place] [address], [place] [address] May, [facility] [address] [id number] [address] [place] [address], [place] [address] Apr, [facility] [address] [id number] [address] [place] [address], [place] [address] Apr, [facility] [address] [id number] [address] [place] [address], [place] [address] Apr, [facility] [address] [id number] [address] [place] [address], [place] [address] Apr, [facility] [address] [id number] [address] [place] [address], [place] [address] Apr, [facility] [address] [id number] [address] [place] [address], [place] [address] March, [facility] [address] [id number] [address] [place] [address], [place] [address] March, [facility] [address] [id number] [address] [place] [address], [place] [address] March, [facility] [address] [id number] [address] [place] [address], [place] [address] March, [facility] [address] [id number] [address] [place] [address], [place] [address] March, [facility] [address] [id number] [address] [place] [address], [place] [address] March, [facility] [address] [id number] [address] [place] [address], [place] [address] March, [facility] [address] [id number] [address] [place] [address], [place] [address] March, [facility] [address] [id number] [address] [place] [address], [place] [address] March, [facility] [address] [id number] [address] [place] [address], [place] [address] March, [facility] [address] [id number] [address] [place] [address], [place] [address] 30 Feb, 2012 [facility] [address] [id number] [address] [place] [address], [place] [address] Feb, [facility] [address] [id number] [address] [place] [address], [place] [address] Feb, [facility] [address] [id number] [address] [place] [address], [place] [address] Feb, [facility] [address] [id number] [address] [place] [address], [place] [address] 17 Feb, 2012 [facility] [address] [id number] [address] [place] [address], [place] [address] Feb, [facility] [address] [id number] [address] [place] [address], [place] [address] Feb, [facility] [address] [id number] [address] [place] [address], [place] [address] Feb, [facility] [address] [id number] [address] [place] [address], [place] [address] Feb, [facility] [address] [id number] [address] [place] [address], [place] [address] Jan, [facility] [address] [id number] [address] [place] [address], [place] [address] Jan, [facility] [address] [id number] [address] [place] [address], [place] [address] Jan, [facility] [address] [id number] [address] [place] [address], [place] [address] Jan, [facility] [address] [id number] [address] [place] [address], [place] [address] Dec, [facility] [address] [id number] [address] [place] [address], [place] [address] Dec, [facility] [address] [id number] [address] [place] [address], [place] [address] Nov, [facility] [address] [id number] [address] [place] [address], [place] [address] Nov, [facility] [address] [id number] [address] [place] [address], [place] [address] Nov, [facility] [address] [id number] [address] [place] [address], [place] [address] Nov, [facility] [address] [id number] [address] [place] [address], [place] [address] Nov, [facility] [address] [id number] [address] [place] [address], [place] [address] Oct, [facility] [address] [id number] [address] [place] [address], [place] [address] Oct, [facility] [address] [id number] [address] [place] [address], [place] [address] Oct, [facility] [address] [id number] [address] [place] [address], [place] [address] Oct, [facility] [address] [id number] [address] [place] [address] Oct, [facility] [address] [facility] [id number] [address] [place] [address] Oct, [facility] [address] [facility] [id number] [address] [place] [address] Oct, [facility] [address] [facility] [id number] [address] [place] [address] Oct, [facility] [address] [facility] [id number] [address] [place] [address] Sep, IMMUNIZATIONS No Known Immunizations SOCIAL HISTORY [...] No Surgical history information Hospitalization History [facility], ab d pain and fever, discharged 11/27/2017 11/26/2017 Hospitalization History [facility]- Went Unrepsonsive, Hit head 2017 Hospitalization History [facility]- Back Pain 8
--- OUTSIDE RECORDS SUMMARY | 2020-06-18 14:46 | XMS REPORT ---
Author Author Sanjuanita JOHNSON [facility] Address [address] [place] [address] Care Team Providers Care Director Of Culture Name Role Phone SHARIF JOHNSON Unavailable PROBLEMS Type Condition ICD9-CM Code PSA07-BR Code Onset Dates Condition S tatus SNOMED Code Problem Hypertension I10 Active 9796262 3 Problem Hyperlipidemia E78.5 Active 40978 004 Problem Coronary artery disease I25.10 Active 04711492 Problem Low back pain M54.5 Active 363616 009 Problem Other chronic pain G89.29 Active 8 2211204 Problem Ventral hernia without obstruction or gangrene K43 .9 Active 390708679 Problem Type 2 diabetes mellitus wit hout complication, without long-term current use of insulin E11.9 Active 142808970 Problem Anxiety F41.9 Active 48694001 Problem Peripheral vascular disease I73.9 Ac tive 235121447 Problem Insomnia G47.00 Active 737833122 Problem Microcytic anemia D50.9 Active 23 0909357 Problem Pharyngeal dysphagia R13.13 Active 78592408509838 Problem Other iron deficiency anemia D50.8 A ctive 34246544 Problem Reactive depression F32.9 Active 78819031 Problem Paroxysmal atrial fibrillation I48.0 Active 734231497 Problem 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 Active 53101321 Problem Encounter for suprapubic catheter care Z43.5 Active 656386144 Problem Neurogenic bladder N31.9 Active 3 32158830 ALLERGIES No Information ENCOUNTERS Encounter Location Date Diagnosis [facility] [address] [facility] [id number] [address] [place] [id number] Jan, Anxiety F41.9 and Strain of right shoulder, subsequent encounter S46.911D [facility] [address] [facility] [id number] [address] [place] [phone] Jan, [facility] [address] [place] [id number] Jan, Neurogenic bladder N31.9 [place] [address] [id number] [address] [place] [phone] Dec, [place] [address] [id number] [address] [place] [id number] Dec, [place] [address] [id number] [address] [place] [address] Dec, Anxiety F41.9 and Strain of right shoulder, subsequent encounter S46.911D [place] [address] [id number] [address] [place] [phone] 10 Dec, 2019 Other iron deficiency anemia D50.8 [place] [address] [id number] [address] [place] [phone] 04 Dec, 2019 [email or web address] [address] [place] [id number] Dec, Encounter for suprapubic catheter care Z 43.5 and Microcytic anemia D50.9 [place] [address] [id number] [address] [place] [phone] Dec, [place] [address] [id number] [address] [place] [phone] Nov, Anxiety F41.9 and Strain of right shoulder, subsequent encounter S46.911D [place] [address] [id number] [address] [place] [address] Nov, Hypertension I10 [facility] [address] [place] [id number] Nov, Pneumonia of both lungs due to infectiou s organism, unspecified part of lung J18.9 and Suprapubic catheter Z93.59 [place] [address] [id number] [address] [place] [id number] Nov, Hypertension I10 and Reactiv e depression F32.9 [place] [address] [id number] [address] [place] [phone] Oct, Strain of right shoulder, scherer bsequent encounter S46.911D and Anxiety F41.9 [facility] [address] [id number] [address] [place] [phone] Oct, [facility] [address] [place] [id number] Oct, Suprapubic catheter Z93.59 and Candidias is, intertriginous B37.2 [facility] [address] [id number] [address] [place] [phone] Oct, Suprapubic catheter Z93.59 [facility] [address] [id number] [address] [place] [id number] Oct, Anxiety F41.9 and Strain of right shoulder, subsequent encounter S46.911D [facility] [address] [id number] [address] [place] [phone] Sep, [facility] [address] [id number] [address] [place] [phone] Sep, [facility] [address] [id number] [address] [place] [phone] Sep, [facility] [address] [place] [id number] Sep, Suprapubic catheter Z93.59 [facility] [address] [id number] [address] [place] [address] Sep, Anxiety F41.9 and Strain of right shoulder, subsequent encounter S46.911D [facility] [address] [id number] [address] [place] [address] Aug, [facility] [address] [id number] [address] [place] [phone] Aug, [facility] [address] [id number] [address] [place] [phone] Aug, Anxiety F41.9 and Strain of right shoulder, subsequent encounter S46.911D [facility] [address] [place] [id number] Aug, Suprapubic catheter Z93.59 [facility] [address] [id number] [address] [place] [address] Jul, Strain of right shoulder, scherer bsequent encounter S46.911D and Anxiety F41.9 [facility] [address] [id number] [address] [place] [address] Jul, Anxiety F41.9 [facility] [address] [id number] [address] [place] [phone] Jun, [facility] [address] [id number] [address] [place] [phone] Jun, [facility] [address] [id number] [address] [place] [phone] Jun, [facility] [address] [id number] [address] [place] [address] Jun, Strain of right shoulder, scherer bsequent encounter S46.911D [facility] [address] [id number] [address] [place] [address] Jun, Strain of right shoulder, scherer bsequent encounter S46.911D [facility] [address] [id number] [address] [place] [phone] Jun, Anxiety F41.9 [facility] [address] [place] [id number] Jun, Neurogenic bladder N31.9 and Anxiety F41 .9 [facility] [address] [place] [id number] May, Anxiety F41.9 [facility] [address] [id number] [address] [place] [address] May, Dysuria R30.0 [facility] [address] [id number] [address] [place] [address] May, Strain of right shoulder, scherer bsequent encounter S46.911D and Anxiety F41.9 [place] [address] [id number] [address] [place] [id number] 27 Apr, 2019 [facility] [address] [place] [id number] Apr, Strain of right shoulder, subsequent enc ounter S46.911D [place] [address] [id number] [address] [place] [id number] 14 Apr, 2019 Strain of right shoulder, scherer bsequent encounter S46.911D and Anxiety F41.9 [facility] [address] [place] [id number] 13 Apr, 2019 Type 2 diabetes mellitus without complic ation, without long-term current use of insulin E11.9 and Neurogenic bladder N31.9 [email or web address] [address] [place] [id number] 11 Apr, 2019 Strain of right shoulder, subsequent enc ounter S46.911D ; History of GI bleed Z87.19 ; Neurogenic bladder N31.9 and Reactive depression F32.9 [place] [address] [id number] [address] [place] [address] 10 Apr, 2019 Acute pain of left shoulder M25.512 [place] [address] [id number] [address] [place] [phone] 07 Apr, 2019 [place] [address] [id number] [address] [place] [address] Apr, Anxiety F41.9 and 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 [address] [place] [id number] March, Gastrointestinal hemorrhage associated w ith acute gastritis K29.01 [place] [address] [id number] [address] [place] [phone] March, [facility] [address] [place] [id number] March, Bronchitis J40 [place] [address] [id number] [address] [place] [phone] March, Cough R05 [facility] [address] [id number] [address] [place] [phone] March, Other chronic pain G89.29 [facility] [address] [id number] [address] [place] [phone] March, Anxiety F41.9 [facility] [address] [id number] [address] [place] [phone] March, [facility] [address] [id number] [address] [place] [address] Feb, Other chronic pain G89.29 [facility] [address] [id number] [address] [place] [phone] Feb, Anxiety F41.9 [facility] [address] [id number] [address] [place] [address] Feb, Other chronic pain G89.29 [facility] [address] [place] [id number] Feb, Neurogenic bladder N31.9 and Suprapubic catheter Z93.59 [facility] [address] [id number] [address] [place] [phone] Jan, Anxiety F41.9 [facility] [address] [id number] [address] [place] [phone] Dec, Anxiety F41.9 [facility] [address] [id number] [address] [place] [phone] Dec, Other chronic pain G89.29 an d Anxiety F41.9 [facility] [address] [id number] [address] [place] [address] Dec, [facility] [address] [place] [id number] Dec, Neurogenic bladder N31.9 and Suprapubic catheter Z93.59 [facility] [address] [id number] [address] [place] [address] Nov, Other chronic pain G89.29 an d Anxiety F41.9 [facility] [address] [id number] [address] [place] [phone] Nov, [facility] [address] [place] [id number] Nov, Suprapubic catheter Z93.59 [facility] [address] [id number] [address] [place] [id number] Oct, Other chronic pain G89.29 an d Anxiety F41.9 [facility] [address] [id number] [address] [place] [phone] Oct, [facility] [address] [id number] [address] [place] [address] Oct, Suprapubic catheter Z93.59 [facility] [address] [id number] [address] [place] [phone] Oct, Via [facility] [address] [place] [id number] Oct, [facility] [address] [id number] [address] [place] [address] Oct, Anxiety F41.9 [facility] [address] [id number] [address] [place] [address] Oct, Anxiety F41.9 [facility] [address] [place] [id number] Oct, Other chronic pain G89.29 [facility] [address] [id number] [address] [place] [address] Sep, Other chronic pain G89.29 [facility] [address] [place] [id number] Sep, Suprapubic catheter Z93.59 and Cervicalg ia M54.2 [facility] [address] [id number] [address] [place] [phone] Sep, [facility] [address] [id number] [address] [place] [phone] Sep, [facility] [address] [id number] [address] [place] [address] Sep, Via [facility] [address] [place] [id number] Aug, Cystitis N30.90 [facility] [address] [id number] [address] [place] [phone] Aug, [facility] [address] [id number] [address] [place] [address] Aug, Other chronic pain G89.29 [facility] [address] [id number] [address] [place] [phone] Aug, Via [facility] [address] [place] [id number] Aug, Encounter for suprapubic catheter care Z 43.5 [facility] [address] [id number] [address] [place] [phone] Jul, [facility] [address] [place] [id number] Jul, [facility] [address] [id number] [address] [place] [phone] Jul, Other chronic pain G89.29 [facility] [address] [id number] [address] [place] [phone] Jul, [facility] [address] [id number] [address] [place] [address] Jul, Via [facility] [address] [place] [id number] Jun, 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 [facility] [address] [id number] [address] [place] [phone] Jun, Other chronic pain G89.29 [facility] [address] [id number] [address] [place] [address] Jun, [facility] [address] [place] [id number] May, Anxiety F41.9 ; Type 2 diabetes mellitus without complication, without long-term current use of insulin E11.9 ; Hypertension I10 ; Low back pain M54.5 ; Paroxysmal atrial fibrillation I48.0 and 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 [facility] [address] [id number] [address] [place] [address] May, Other chronic pain G89.29 [facility] [address] [place] [id number] May, Low back pain M54.5 [place] [address] [id number] [address] [place] [phone] May, [place] [address] [id number] [address] [place] [address] Apr, Other chronic pain G89.29 [place] [address] [id number] [address] [place] [address] Apr, [facility] [address] [id number] [address] [place] [address] Apr, [facility] [address] [place] [id number] Apr, Closed compression fracture of L3 lumbar vertebra with routine healing, subsequent encounter S32.030D [facility] [address] [place] [id number] Apr, Low back pain M54.5 [facility] [address] [place] [id number] Apr, Coccydynia M53.3 [facility] [address] [id number] [address] [place] [address] March, [facility] [address] [id number] [address] [place] [address] March, Other chronic pain G89.29 [facility] [address] [id number] [address] [place] [address] March, [facility] [address] [id number] [address] [place] [address] March, [facility] [address] [id number] [address] [place] [address] Feb, [facility] [address] [id number] [address] [place] [address] Feb, Other chronic pain G89.29 [facility] [address] [place] [id number] Feb, Other chronic pain G89.29 and Anxiety F4 1.9 [facility] [address] [id number] [address] [place] [phone] Feb, [facility] [address] [id number] [address] [place] [address] Jan, [facility] [address] [id number] [address] [place] [address] Jan, [facility] [address] [id number] [address] [place] [address] Jan, [facility] [address] [id number] [address] [place] [phone] Jan, [facility] [address] [id number] [address] [place] [phone] Dec, [facility] [address] [place] [id number] Dec, Peripheral vascular disease I73.9 ; 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9 [facility] [address] [place] [id number] Nov, Status post surgery Z98.890 ; Confused R 41.0 ; Anxiety F41.9 and Other chronic pain G89.29 [facility] [address] [id number] [place] [id number] Nov, Other chronic pain G89.29 [facility] [address] [id number] [address] [place] [phone] Oct, [facility] [address] [id number] [place] [id number] Oct, Other chronic pain G89.29 [facility] [address] [id number] [address] [place] [address] Oct, Anxiety F41.9 [facility] [address] [id number] [place] [id number] Sep, Other chronic pain G89.29 [facility] [address] [id number] [place] [id number] Sep, [facility] [address] [place] [id number] Aug, Dysuria R30.0 and Anxiety F41.9 [facility] [address] [id number] [address] [place] [address] Aug, [facility] [address] [id number] [place] [id number] Aug, Other chronic pain G89.29 [facility] [address] [facility] [id number] [address] [place] [address] Jul, Other chronic pain G89.29 [facility] [address] [id number] [place] [id number] Jun, [facility] [address] [id number] [place] [id number] Jun, Other chronic pain G89.29 [facility] [address] [id number] [address] [place] [address] Jun, [facility] [address] [id number] [address] [place] [address] May, Other chronic pain G89.29 [facility] [address] [id number] [address] [place] [address] Apr, Other chronic pain G89.29 [facility] [address] [place] [id number] Apr, Reactive depression F32.9 and Pharyngeal dysphagia R13.13 [facility] [address] [id number] [address] [place] [address] Apr, Urinary tract infection with out hematuria, site unspecified N39.0 [facility] [address] [id number] [address] [place] [address] March, Other chronic pain G89.29 [facility] [address] [id number] [address] [place] [address] Feb, Other chronic pain G89.29 [facility] [address] [id number] [address] [place] [address] Feb, [facility] [address] [id number] [place] [id number] Feb, [facility] [address] [place] [id number] Feb, Dysuria R30.0 and Ventral hernia without obstruction or gangrene K43.9 [facility] [address] [id number] [address] [place] [address] Jan, Other chronic pain G89.29 [facility] [address] [id number] [id number] Dec, Other chronic pain G89.29 [facility] [address] [id number] [address] [place] [address] Nov, Other chronic pain G89.29 [facility] [address] [place] [id number] Nov, Lymphadenitis I88.9 [facility] [address] [id number] [address] [place] [address] Nov, Other chronic pain G89.29 [facility] [address] [id number] [address] [place] [phone] Nov, [facility] [address] [id number] [place] [id number] Nov, Other chronic pain G89.29 [facility] [address] [place] [id number] Oct, Low back pain M54.5 ; Hypertension I10 a nd Type 2 diabetes mellitus without complication, without long-term current use of insulin E11.9 [facility] [address] [id number] [address] [place] [id number] Oct, [facility] [address] [id number] [address] [place] [id number] Oct, [facility] [address] [id number] [address] [place] [id number] Oct, [facility] [address] [id number] [address] [place] [id number] Oct, [facility] [address] [id number] [address] [place] [id number] Sep, [facility] [address] [id number] [address] [place] [id number] Sep, [facility] [address] [id number] [address] [place] [phone] Aug, Other chronic pain G89.29 [facility] [address] [id number] [address] [place] [id number] Jul, [facility] [address] [id number] [address] [place] [id number] Jul, [facility] [address] [id number] [address] [place] [id number] Jul, [facility] [address] [id number] [address] [place] [phone] Jun, [facility] [address] [id number] [address] [place] [phone] Jun, [facility] [address] [place] [id number] Jun, Low back pain M54.5 ; Other chronic pain G89.29 and Coronary artery disease I25.10 [facility] [address] [id number] [address] [place] [phone] Jun, [facility] [address] [id number] [address] [place] [id number] May, [facility] [address] [id number] [address] [place] [id number] May, [facility] [address] [id number] [address] [place] [phone] May, Other chronic pain G89.29 [facility] [address] [id number] [address] [place] [id number] May, [facility] [address] [id number] [address] [place] [id number] Apr, [facility] [address] [id number] [address] [place] [id number] Apr, Acute cystitis without hemat uria N30.00 [facility] [address] [id number] [address] [place] [id number] Apr, Acute cystitis without hemat uria N30.00 ; Coronary artery disease I25.10 ; Low back pain M54.5 and Other chronic pain G89.29 [facility] [address] [id number] [address] [place] [phone] Apr, Other chronic pain G89.29 [facility] [address] [id number] [address] [place] [address] March, Other chronic pain G89.29 [facility] [address] [id number] [address] [place] [id number] Feb, [facility] [address] [id number] [address] [place] [id number] Feb, Arthritis M19.90 [facility] [address] [id number] [address] [place] [id number] Feb, [facility] [address] [id number] [address] [place] [id number] Jan, [facility] [address] [id number] [address] [place] [id number] Jan, [facility] [address] [id number] [address] [place] [id number] Jan, Other chronic pain G89.29 [facility] [address] [id number] [address] [place] [phone] Jan, Hypertension I10 ; Coronary artery disease I25.10 and Insomnia G47.00 [facility] [address] [id number] [address] [place] [id number] Jan, [facility] [address] [id number] [address] [place] [id number] Dec, Right hip pain M25.551 [facility] [address] [id number] [address] [place] [id number] Dec, [facility] [address] [id number] [address] [place] [id number] Dec, [facility] [address] [id number] [address] [place] [id number] Dec, [facility] [address] [id number] [address] [place] [id number] Dec, Other chronic pain G89.29 [facility] [address] [id number] [address] [place] [id number] Dec, [facility] [address] [id number] [address] [place] [id number] Nov, [facility] [address] [id number] [address] [place] [id number] Nov, Other chronic pain G89.29 [facility] [address] [id number] [address] [place] [id number] Nov, Right hip pain M25.551 and C oronary artery disease I25.10 [facility] [address] [id number] [address] [place] [id number] Nov, Other chronic pain G89.29 [facility] [address] [id number] [address] [place] [phone] Oct, [facility] [address] [facility] [id number] [address] [place] [id number] Oct, [facility] [address] [facility] [id number] [address] [place] [phone] Sep, [facility] [address] [id number] [address] [place] [id number] Sep, [facility] [address] [facility] [id number] [address] [place] [phone] Aug, [facility] [address] [facility] [id number] [address] [place] [id number] Aug, Hypertension I10 ; Coronary artery disease I25.10 and Arthritis M19.90 [facility] [address] [id number] [address] [place] [phone] Jun, [facility] [address] [id number] [address] [place] [address], [place] [address] Jun, Essential hypertension, jayson gn 401.1 ; Other chronic pain 338.29 and Chronic airway obstruction, not elsewhere classified 496 [facility] [address] [id number] [address] [place] [address], [place] [address] Jun, [facility] [address] [id number] [address] [place] [address], [place] [address] Jun, [facility] [address] [id number] [address] [place] [address], [place] [address] Jun, [facility] [address] [id number] [address] [place] [address], [place] [address] May, [facility] [address] [id number] [address] [place] [address], [place] [address] May, [facility] [address] [id number] [address] [place] [address], [place] [address] Apr, [facility] [address] [id number] [address] [place] [id number] Apr, [facility] [address] [id number] [address] [place] [address], [place] [address] Apr, [facility] [address] [id number] [address] [place] [phone] March, [facility] [address] [id number] [address] [place] [phone] March, [facility] [address] [id number] [address] [place] [id number] March, [facility] [address] [id number] [address] [place] [id number] March, [facility] [address] [id number] [address] [place] [phone] March, Sialadenitis 527.2 [facility] [address] [id number] [address] [place] [id number] Feb, [facility] [address] [id number] [address] [place] [address], [place] [address] Feb, [facility] [address] [id number] [address] [place] [address], [place] [address] Feb, [facility] [address] [id number] [address] [place] [address], [place] [address] Feb, [facility] [address] [id number] [address] [place] [address], [place] [address] Feb, [facility] [address] [id number] [address] [place] [address], [place] [address] Jan, [facility] [address] [id number] [address] [place] [address], [place] [address] Jan, [facility] [address] [id number] [address] [place] [address], [place] [address] Jan, [facility] [address] [id number] [address] [place] [address], [place] [address] Jan, [facility] [address] [id number] [address] [place] [address], [place] [address] Jan, [facility] [address] [id number] [address] [place] [address], [place] [address] Jan, [facility] [address] [id number] [address] [place] [address], [place] [address] Dec, 2014 [facility] [address] [id number] [address] [place] [address], [place] [address] Dec, 2014 [facility] [address] [id number] [address] [place] [address], [place] [address] Dec, 2014 [facility] [address] [id number] [address] [place] [address], [place] [address] Dec, 2014 [facility] [address] [id number] [address] [place] [address], [place] [address] Dec, 2014 [facility] [address] [id number] [address] [place] [address], [place] [address] Dec, [facility] [address] [id number] [address] [place] [address], [place] [address] Nov, [facility] [address] [id number] [address] [place] [address], [place] [address] Nov, [facility] [address] [id number] [address] [place] [address], [place] [address] Nov, [facility] [address] [id number] [address] [place] [address], [place] [address] Nov, [facility] [address] [id number] [address] [place] [address], [place] [address] Nov, [facility] [address] [id number] [address] [place] [address], [place] [address] Nov, [facility] [address] [id number] [address] [place] [address], [place] [address] Nov, [facility] [address] [id number] [address] [place] [address], [place] [address] Nov, [facility] [address] [id number] [address] [place] [address], [place] [address] Nov, [facility] [address] [id number] [address] [place] [address], [place] [address] Nov, [facility] [address] [id number] [address] [place] [address], [place] [address] Nov, [facility] [address] [id number] [address] [place] [address], [place] [address] Nov, [facility] [address] [id number] [address] [place] [address], [place] [address] Nov, [facility] [address] [id number] [address] [place] [address], [place] [address] Nov, [facility] [address] [id number] [address] [place] [address], [place] [address] Oct, [facility] [address] [id number] [address] [place] [address], [place] [address] Oct, [facility] [address] [id number] [address] [place] [address], [place] [address] Oct, [facility] [address] [id number] [address] [place] [address], [place] [address] 18 Oct, 2014 [facility] [address] [id number] [address] [place] [address], [place] [address] Oct, [facility] [address] [id number] [address] [place] [address], [place] [address] Oct, [facility] [address] [id number] [address] [place] [address], [place] [address] Oct, [facility] [address] [id number] [address] [place] [address], [place] [address] Oct, [facility] [address] [id number] [address] [place] [address], [place] [address] Oct, [facility] [address] [id number] [address] [place] [address], [place] [address] Sep, [facility] [address] [id number] [address] [place] [address], [place] [address] Sep, [facility] [address] [id number] [address] [place] [address], [place] [address] Sep, [facility] [address] [id number] [address] [place] [address], [place] [address] Sep, [facility] [address] [id number] [address] [place] [address], [place] [address] Sep, [facility] [address] [id number] [address] [place] [address], [place] [address] Sep, [facility] [address] [id number] [address] [place] [address], [place] [address] Sep, [facility] [address] [id number] [address] [place] [address], [place] [address] Sep, [facility] [address] [id number] [address] [place] [address], [place] [address] Sep, [facility] [address] [id number] [address] [place] [address], [place] [address] Sep, [facility] [address] [id number] [address] [place] [address], [place] [address] Sep, [facility] [address] [id number] [address] [place] [address], [place] [address] Sep, [facility] [address] [id number] [address] [place] [address], [place] [address] Aug, [facility] [address] [id number] [address] [place] [address], [place] [address] Aug, [facility] [address] [id number] [address] [place] [address], [place] [address] Aug, [facility] [address] [id number] [address] [place] [address], [place] [address] Aug, [facility] [address] [id number] [address] [place] [address], [place] [address] Aug, [facility] [address] [id number] [address] [place] [address], [place] [address] Aug, [facility] [address] [id number] [address] [place] [address], [place] [address] Aug, [facility] [address] [id number] [address] [place] [address], [place] [address] Aug, [facility] [address] [id number] [address] [place] [address], [place] [address] 30 Jul, 2014 [facility] [address] [id number] [address] [place] [address], [place] [address] 30 Jul, 2014 [facility] [address] [id number] [address] [place] [address], [place] [address] 30 Jul, 2014 [facility] [address] [id number] [facility] [place] [address] 30 Jul, 2013 [facility] [address] [id number] [facility] [place] [address] 25 Jul, 2013 [facility] [address] [id number] [facility] [place] [address] 25 Jul, 2013 [facility] [address] [id number] [facility] [place] [address] 15 Jul, 2014 [facility] [address] [id number] [address] [place] [address], [place] [address] 15 Jul, 2014 [facility] [address] [id number] [address] [place] [address], [place] [address] Jul, [facility] [address] [id number] [address] [place] [address], [place] [address] Jul, [facility] [address] [id number] [address] [place] [address], [place] [address] Jun, [facility] [address] [id number] [address] [place] [address], [place] [address] Jun, [facility] [address] [id number] [address] [place] [address], [place] [address] Jun, [facility] [address] [id number] [address] [place] [address], [place] [address] Jun, [facility] [address] [id number] [address] [place] [address], [place] [address] Jun, [facility] [address] [id number] [address] [place] [address], [place] [address] Jun, [facility] [address] [id number] [address] [place] [address], [place] [address] Jun, [facility] [address] [id number] [address] [place] [address], [place] [address] Jun, [facility] [address] [id number] [address] [place] [address], [place] [address] Jun, [facility] [address] [id number] [facility] [place] [address] Jun, [facility] [address] [id number] [address] [place] [address], [place] [address] Jun, [facility] [address] [id number] [address] [place] [address], [place] [address] Jun, [facility] [address] [id number] [address] [place] [address], [place] [address] Jun, [facility] [address] [id number] [address] [place] [address], [place] [address] Jun, [facility] [address] [id number] [address] [place] [address], [place] [address] Jun, [facility] [address] [id number] [address] [place] [address], [place] [address] Jun, [facility] [address] [id number] [address] [place] [address], [place] [address] Jun, [facility] [address] [id number] [address] [place] [address], [place] [address] Jun, [facility] [address] [id number] [address] [place] [address], [place] [address] Jun, [facility] [address] [id number] [address] [place] [address], [place] [address] Jun, [facility] [address] [id number] [address] [place] [address], [place] [address] Jun, [facility] [address] [id number] [address] [place] [address], [place] [address] Jun, [facility] [address] [id number] [address] [place] [address], [place] [address] May, [facility] [address] [id number] [address] [place] [address], [place] [address] May, [facility] [address] [id number] [facility] [place] [address] May, [facility] [address] [id number] [facility] [place] [address] May, [facility] [address] [id number] [facility] [place] [address] May, [facility] [address] [id number] [address] [place] [address], [place] [address] May, 2013 [facility] [address] [id number] [address] [place] [address], [place] [address] May, 2013 [facility] [address] [id number] [address] [place] [address], [place] [address] May, [facility] [address] [id number] [address] [place] [address], [place] [address] May, [facility] [address] [id number] [address] [place] [address], [place] [address] May, [facility] [address] [id number] [address] [place] [address], [place] [address] May, [facility] [address] [id number] [address] [place] [address], [place] [address] May, [facility] [address] [id number] [address] [place] [address], [place] [address] May, [facility] [address] [id number] [address] [place] [address], [place] [address] Apr, [facility] [address] [id number] [address] [place] [address], [place] [address] Apr, [facility] [address] [id number] [address] [place] [address], [place] [address] Apr, [facility] [address] [id number] [address] [place] [address], [place] [address] Apr, [facility] [address] [id number] [address] [place] [address], [place] [address] Apr, [facility] [address] [id number] [address] [place] [address], [place] [address] Apr, [facility] [address] [id number] [address] [place] [address], [place] [address] Apr, [facility] [address] [id number] [address] [place] [address], [place] [address] Apr, [facility] [address] [id number] [address] [place] [address], [place] [address] Apr, [facility] [address] [id number] [address] [place] [address], [place] [address] March, [facility] [address] [id number] [address] [place] [address], [place] [address] March, [facility] [address] [id number] [address] [place] [address], [place] [address] March, [facility] [address] [id number] [address] [place] [address], [place] [address] March, [facility] [address] [id number] [address] [place] [address], [place] [address] March, [facility] [address] [id number] [address] [place] [address], [place] [address] March, [facility] [address] [id number] [address] [place] [address], [place] [address] March, [facility] [address] [id number] [address] [place] [address], [place] [id number] March, [facility] [address] [id number] [address] [place] [address], [place] [address] March, [facility] [address] [id number] [address] [place] [address], [place] [address] March, [facility] [address] [id number] [address] [place] [address], [place] [address] March, [facility] [address] [id number] [address] [place] [address], [place] [address] March, [facility] [address] [id number] [address] [place] [address], [place] [address] March, [facility] [address] [id number] [address] [place] [address], [place] [address] March, [facility] [address] [id number] [address] [place] [address], [place] [address] March, [facility] [address] [id number] [address] [place] [address], [place] [address] March, [facility] [address] [id number] [address] [place] [address], [place] [address] March, [facility] [address] [id number] [address] [place] [address], [place] [address] March, [facility] [address] [id number] [address] [place] [address], [place] [address] March, [facility] [address] [id number] [address] [place] [address], [place] [address] March, [facility] [address] [id number] [address] [place] [address], [place] [address] Feb, [facility] [address] [id number] [address] [place] [address], [place] [address] Feb, [facility] [address] [id number] [address] [place] [address], [place] [address] Feb, [facility] [address] [id number] [address] [place] [address], [place] [address] Feb, [facility] [address] [id number] [address] [place] [address], [place] [address] Feb, [facility] [address] [id number] [address] [place] [address], [place] [address] Feb, [facility] [address] [id number] [address] [place] [address], [place] [address] Feb, [facility] [address] [id number] [facility] [place] [address] 11 Feb, 2014 [facility] [address] [id number] [facility] [place] [address] Jan, [facility] [address] [id number] [facility] [place] [address] Jan, [facility] [address] [id number] [address] [place] [address], [place] [address] Jan, [facility] [address] [id number] [address] [place] [address], [place] [address] Jan, [facility] [address] [id number] [address] [place] [address], [place] [address] Jan, [facility] [address] [id number] [address] [place] [address], [place] [address] Jan, [facility] [address] [id number] [address] [place] [address], [place] [address] Jan, [facility] [address] [id number] [address] [place] [address], [place] [address] Jan, [facility] [address] [id number] [address] [place] [address], [place] [address] Jan, [facility] [address] [id number] [address] [place] [address], [place] [address] Jan, [facility] [address] [id number] [address] [place] [address], [place] [address] Dec, [facility] [address] [id number] [address] [place] [address], [place] [address] Dec, [facility] [address] [id number] [address] [place] [address], [place] [address] Dec, [facility] [address] [id number] [address] [place] [address], [place] [address] 2013 [facility] [address] [id number] [address] [place] [address], [place] [address] 2013 [facility] [address] [id number] [address] [place] [address], [place] [address] Dec, [facility] [address] [id number] [address] [place] [address], [place] [address] Dec, [facility] [address] [id number] [address] [place] [address], [place] [address] Dec, [facility] [address] [id number] [address] [place] [address], [place] [address] Nov, [facility] [address] [id number] [address] [place] [address], [place] [address] Nov, [facility] [address] [id number] [address] [place] [address], [place] [address] Nov, [facility] [address] [id number] 85 [place] [address], [place] [address] Nov, [facility] [address] [id number] [address] [place] [address], [place] [address] Nov, [facility] [address] [id number] [address] [place] [address], [place] [address] Nov, [facility] [address] [id number] [address] [place] [address], [place] [address] Nov, [facility] [address] [id number] [address] [place] [address], [place] [address] Nov, [facility] [address] [id number] [address] [place] [address], [place] [address] Nov, [facility] [address] [id number] [address] [place] [address], [place] [address] Nov, [facility] [address] [id number] [address] [place] [address], [place] [address] Nov, [facility] [address] [id number] [address] [place] [address], [place] [address] Nov, [facility] [address] [id number] [address] [place] [address], [place] [address] 15 Nov, 2013 [facility] [address] [id number] [address] [place] [address], [place] [address] 30 Oct, 2013 [facility] [address] [id number] [address] [place] [address], [place] [address] Oct, [facility] [address] [id number] [address] [place] [address], [place] [address] Oct, [facility] [address] [id number] [address] [place] [address], [place] [address] Oct, [facility] [address] [id number] [address] [place] [address], [place] [address] Oct, [facility] [address] [id number] [address] [place] [address], [place] [address] Oct, [facility] [address] [id number] [address] [place] [address], [place] [address] Oct, [facility] [address] [id number] [address] [place] [address], [place] [address] 18 Oct, 2013 [facility] [address] [id number] [address] [place] [address], [place] [address] Oct, [facility] [address] [id number] [address] [place] [address], [place] [address] 17 Oct, 2013 [facility] [address] [id number] [address] [place] [address], [place] [address] Oct, [facility] [address] [id number] [address] [place] [address], [place] [address] Oct, [facility] [address] [id number] [address] [place] [address], [place] [address] Oct, [facility] [address] [id number] [address] [place] [address], [place] [address] Oct, [facility] [address] [id number] [address] [place] [address], [place] [address] Sep, [facility] [address] [id number] [address] [place] [address], [place] [address] 14 Sep, 2013 [facility] [address] [id number] [address] [place] [address], [place] [address] Sep, [facility] [address] [id number] [address] [place] [address], [place] [address] Sep, [facility] [address] [id number] [address] [place] [address], [place] [address] Sep, [facility] [address] [id number] [address] [place] [address], [place] [address] Sep, [facility] [address] [id number] [address] [place] [address], [place] [address] Sep, [facility] [address] [id number] [address] [place] [address], [place] [address] Sep, [facility] [address] [id number] [address] [place] [address] Sep, [facility] [address] [id number] [address] [place] [address], [place] [address] Sep, [facility] [address] [id number] [address] [place] [address] Aug, [facility] [address] [id number] [address] [place] [address] Aug, [facility] [address] [id number] [address] [place] [address] Aug, [facility] [address] [id number] [address] [place] [address] Aug, [facility] [address] [id number] [address] [place] [address] Aug, [facility] [address] [id number] [address] [place] [address] Aug, [facility] [address] [id number] [address] [place] [address], [place] [address] 23 Aug, 2012 [facility] [address] [id number] [address] [place] [address], [place] [address] 23 Aug, 2012 [facility] [address] [id number] [address] [place] [address], [place] [address] 22 Aug, 2012 [facility] [address] [id number] [address] [place] [address], [place] [address] 22 Aug, 2012 [facility] [address] [id number] [address] [place] [address], [place] [address] 18 Aug, 2012 [facility] [address] [id number] [address] [place] [address], [place] [address] 18 Aug, 2012 [facility] [address] [id number] [address] [place] [address], [place] [address] 18 Aug, 2012 [facility] [address] [id number] [address] [place] [address], [place] [address] 18 Aug, 2012 [facility] [address] [id number] [address] [place] [address], [place] [address] 17 Aug, 2012 [facility] [address] [id number] [address] [place] [address], [place] [address] 14 Aug, 2013 [facility] [address] [id number] [address] [place] [address], [place] [address] 14 Aug, 2013 [facility] [address] [id number] [address] [place] [address], [place] [address] 01 Aug, 2013 [facility] [address] [id number] [address] [place] [address], [place] [address] 20 Jul, 2012 [facility] [address] [id number] [address] [place] [address], [place] [address] 19 Sep, 2012 [facility] [address] [id number] [address] [place] [address], [place] [address] 18 Jul, 2012 [facility] [address] [id number] [address] [place] [address], [place] [address] 11 Jul2012 [facility] [address] [id number] [facility] [place] [address] Jul, [facility] [address] [id number] [address] [place] [address], [place] [address] Jun, [facility] [address] [id number] [address] [place] [address], [place] [address] Jun, [facility] [address] [id number] [address] [place] [address], [place] [address] Jun, [facility] [address] [id number] [address] [place] [address], [place] [address] Jun, [facility] [address] [id number] [address] [place] [address], [place] [address] Jun, [facility] [address] [id number] [address] [place] [address], [place] [address] Jun, [facility] [address] [id number] [address] [place] [address], [place] [address] Jun, [facility] [address] [id number] [address] [place] [address], [place] [address] Jun, [facility] [address] [id number] [address] [place] [address], [place] [address] Jun, [facility] [address] [id number] [address] [place] [address], [place] [address] Jun, [facility] [address] [id number] [address] [place] [address], [place] [address] May, [facility] [address] [id number] [address] [place] [address], [place] [address] May, [facility] [address] [id number] [address] [place] [address], [place] [address] May, [facility] [address] [id number] [address] [place] [address], [place] [address] May, [facility] [address] [id number] [address] [place] [address], [place] [address] May, [facility] [address] [id number] [address] [place] [address], [place] [address] 16 May, 2013 [facility] [address] [id number] [address] [place] [address], [place] [address] May, [facility] [address] [id number] [address] [place] [address], [place] [address] May, [facility] [address] [id number] [address] [place] [address], [place] [address] May, [facility] [address] [id number] [address] [place] [address], [place] [address] Apr, [facility] [address] [id number] [address] [place] [address], [place] [address] Apr, [facility] [address] [id number] [address] [place] [address], [place] [address] Apr, [facility] [address] [id number] [address] [place] [address], [place] [address] Apr, [facility] [address] [id number] [address] [place] [address], [place] [address] Apr, [facility] [address] [id number] [address] [place] [address], [place] [address] Apr, [facility] [address] [id number] [address] [place] [address], [place] [address] Apr, [facility] [address] [id number] [address] [place] [address], [place] [address] March, [facility] [address] [id number] [address] [place] [address], [place] [address] Feb, [facility] [address] [id number] [address] [place] [address], [place] [address] Feb, [facility] [address] [id number] [address] [place] [address], [place] [address] Feb, [facility] [address] [id number] [address] [place] [address], [place] [address] 28 Jan, 2013 [facility] [address] [id number] [address] [place] [address], [place] [address] 21 Jan, 2013 [facility] [address] [id number] [address] [place] [address], [place] [address] 19 Jan, 2013 [facility] [address] [id number] [address] [place] [address], [place] [address] 14 Jan, 2013 [facility] [address] [id number] [address] [place] [address], [place] [address] 12 Jan, 2013 [facility] [address] [id number] [address] [place] [address], [place] [address] 08 Jan, 2013 [facility] [address] [id number] [address] [place] [address], [place] [address] 07 Jan, 2013 [facility] [address] [id number] [address] [place] [address], [place] [address] 04 Jan, 2013 [facility] [address] [id number] [address] [place] [address], [place] [address] 28 Dec, 2012 [facility] [address] [id number] [address] [place] [address], [place] [address] 25 Dec, 2012 [facility] [address] [id number] [address] [place] [address], [place] [address] 13 Dec, 2012 [facility] [address] [id number] [address] [place] [address], [place] [address] 11 Dec, 2012 [facility] [address] [id number] [address] [place] [address], [place] [address] 07 Dec, 2012 [facility] [address] [id number] [address] [place] [address], [place] [address] 06 Dec, 2012 [facility] [address] [id number] [address] [place] [address], [place] [address] 05 Dec, 2012 [facility] [address] [id number] [address] [place] [address], [place] [address] 31 Nov, 2012 [facility] [address] [id number] [address] [place] [address], [place] [address] 24 Nov, 2012 [facility] [address] [id number] [address] [place] [address], [place] [address] 18 Nov, 2012 [facility] [address] [id number] [address] [place] [address], [place] [address] 15 Nov, 2012 [facility] [address] [id number] [address] [place] [address], [place] [address] Nov, [facility] [address] [id number] [address] [place] [address], [place] [address] Nov, [facility] [address] [id number] [address] [place] [address], [place] [address] Nov, [facility] [address] [id number] [address] [place] [address], [place] [address] Oct, [facility] [address] [id number] [address] [place] [address], [place] [address] 31 Oct, 2012 [facility] [address] [id number] [address] [place] [address], [place] [address] Oct, [facility] [address] [id number] [address] [place] [address], [place] [address] Oct, [facility] [address] [id number] [address] [place] [address], [place] [address] 17 Oct, 2012 [facility] [address] [id number] [address] [place] [address], [place] [address] 17 Oct, 2012 [facility] [address] [id number] [address] [place] [address], [place] [address] 07 Oct, 2012 [facility] [address] [id number] [address] [place] [address], [place] [address] 07 Oct, 2012 [facility] [address] [id number] [address] [place] [address], [place] [address] 05 Oct, 2012 [facility] [address] [id number] [address] [place] [address], [place] [address] Oct, [facility] [address] [id number] [address] [place] [address], [place] [address] Oct, [facility] [address] [id number] [address] [place] [address], [place] [address] Oct, [facility] [address] [id number] [address] [place] [address], [place] [address] Sep, [facility] [address] [id number] [address] [place] [address], [place] [address] Sep, [facility] [address] [id number] [address] [place] [address], [place] [address] Sep, [facility] [address] [id number] [address] [place] [address], [place] [address] Sep, [facility] [address] [id number] [address] [place] [address], [place] [address] Sep, [facility] [address] [id number] [address] [place] [address], [place] [address] Sep, [facility] [address] [id number] [address] [place] [address], [place] [address] Sep, [facility] [address] [id number] [address] [place] [address], [place] [address] Sep, [facility] [address] [id number] [address] [place] [address], [place] [address] Sep, [facility] [address] [id number] [address] [place] [address], [place] [address] Sep, [facility] [address] [id number] [address] [place] [address], [place] [address] Sep, [facility] [address] [id number] [address] [place] [address], [place] [address] Aug, [facility] [address] [id number] [address] [place] [address], [place] [address] Aug, [facility] [address] [id number] [address] [place] [address], [place] [address] Aug, [facility] [address] [id number] [address] [place] [address], [place] [address] Aug, [facility] [address] [id number] [address] [place] [address], [place] [address] Aug, [facility] [address] [id number] [address] [place] [address], [place] [address] Aug, [facility] [address] [id number] [address] [place] [address], [place] [address] Aug, [facility] [address] [id number] [address] [place] [address], [place] [address] Aug, [facility] [address] [id number] [address] [place] [address], [place] [address] Aug, [facility] [address] [id number] [address] [place] [address], [place] [address] Aug, [facility] [address] [id number] [address] [place] [address], [place] [address] Jul, [facility] [address] [id number] [address] [place] [address], [place] [address] 20 Jul, 2012 [facility] [address] [id number] [address] [place] [address], [place] [address] 10 Jul, 2012 [facility] [address] [id number] [address] [place] [address], [place] [address] 06 Jul, 2012 [facility] [address] [id number] [address] [place] [address], [place] [address] 30 Jun, 2012 [facility] [address] [id number] [address] [place] [address], [place] [address] Jun, [facility] [address] [id number] [address] [place] [address], [place] [address] 16 Jun, 2012 [facility] [address] [id number] [address] [place] [address], [place] [address] Jun, [facility] [address] [id number] [address] [place] [address], [place] [address] Jun, [facility] [address] [id number] [address] [place] [address], [place] [address] Jun, [facility] [address] [id number] [address] [place] [address], [place] [address] Jun, [facility] [address] [id number] [address] [place] [address], [place] [address] May, [facility] [address] [id number] [address] [place] [address], [place] [address] May, [facility] [address] [id number] [address] [place] [address], [place] [address] May, [facility] [address] [id number] [address] [place] [address], [place] [address] May, [facility] [address] [id number] [address] [place] [address], [place] [address] May, [facility] [address] [id number] [address] [place] [address], [place] [address] Apr, [facility] [address] [id number] [address] [place] [address], [place] [address] Apr, [facility] [address] [id number] [address] [place] [address], [place] [address] Apr, [facility] [address] [id number] [address] [place] [address], [place] [address] Apr, [facility] [address] [id number] [address] [place] [address], [place] [address] Apr, [facility] [address] [id number] [address] [place] [address], [place] [address] March, [facility] [address] [id number] [address] [place] [address], [place] [address] March, [facility] [address] [id number] [address] [place] [address], [place] [address] March, [facility] [address] [id number] [address] [place] [address], [place] [address] March, [facility] [address] [id number] [address] [place] [address], [place] [address] March, [facility] [address] [id number] [address] [place] [address], [place] [address] March, [facility] [address] [id number] [address] [place] [address], [place] [address] March, [facility] [address] [id number] [address] [place] [address], [place] [address] March, [facility] [address] [id number] [address] [place] [address], [place] [address] March, [facility] [address] [id number] [address] [place] [address], [place] [address] March, [facility] [address] [id number] [address] [place] [address], [place] [address] 30 Feb, 2012 [facility] [address] [id number] [address] [place] [address], [place] [address] Feb, [facility] [address] [id number] [address] [place] [address], [place] [address] Feb, [facility] [address] [id number] [address] [place] [address], [place] [address] Feb, [facility] [address] [id number] [address] [place] [address], [place] [address] Feb, [facility] [address] [id number] [address] [place] [address], [place] [address] Feb, [facility] [address] [id number] [address] [place] [address], [place] [address] Feb, [facility] [address] [id number] [address] [place] [address], [place] [address] Feb, [facility] [address] [id number] [address] [place] [address], [place] [address] Feb, [facility] [address] [id number] [address] [place] [address], [place] [address] 08 Jan, 2012 [facility] [address] [id number] [address] [place] [address], [place] [address] Jan, [facility] [address] [id number] [address] [place] [address], [place] [address] Jan, [facility] [address] [id number] [address] [place] [address], [place] [address] Jan, [facility] [address] [id number] [address] [place] [address], [place] [address] Dec, [facility] [address] [id number] [address] [place] [address], [place] [address] Dec, [facility] [address] [id number] [address] [place] [address], [place] [address] Nov, [facility] [address] [id number] [address] [place] [address], [place] [address] Nov, [facility] [address] [id number] [address] [place] [address], [place] [address] Nov, [facility] [address] [id number] [address] [place] [address], [place] [address] Nov, [facility] [address] [id number] [address] [place] [address], [place] [address] Nov, [facility] [address] [id number] [address] [place] [address], [place] [address] Oct, [facility] [address] [id number] [address] [place] [address], [place] [address] Oct, [facility] [address] [id number] [address] [place] [address], [place] [address] Oct, [facility] [address] [id number] [address] [place] [id number] Oct, [facility] [address] [facility] [id number] [address] [place] [id number] Oct, [facility] [address] [facility] [id number] [address] [place] [id number] Oct, [facility] [address] [facility] [id number] [address] [place] [id number] Oct, [facility] [address] [facility] [id number] [address] [place] [id number] Oct, [facility] [address] [facility] [id number] [address] [place] [id number] Sep, IMMUNIZATIONS No Known Immunizations SOCIAL HISTORY [...] History No Surgical history information Hospitalization History [facility]- Urosepsis, ab d pain and fever, discharged 11/27/2017 11/26/2017 Hospitalization History [facility]- Went Unrepsonsive, Hit head 2017 Hospitalization History [facility]- Back Pain 8
--- OUTSIDE RECORDS SUMMARY | 2020-06-18 14:47 | XMS REPORT ---
Author Author Sanjuanita Abdul Doctor Organization [facility] Address Unknown Phone Unavailable Care Team Providers Care Financial Reporting Specialist Name Role Phone Migration, Doctor Unavailable Unavailable PROBLEMS Type Condition ICD9-CM Code [id number] Code Onset Dates Condition S tatus SNOMED Code Problem Hypertension I10 Active 2384379 3 Problem Hyperlipidemia E78.5 Active 36041 004 Problem Coronary artery disease I25.10 Active 64791484 Problem Low back pain M54.5 Active 517191 009 Problem Other chronic pain G89.29 Active 8 0140172 Problem Ventral hernia without obstruction or gangrene K43 .9 Active 499941729 Problem Type 2 diabetes mellitus wit hout complication, without long-term current use of insulin E11.9 Active 666886940 Problem Anxiety F41.9 Active 50983373 Problem Peripheral vascular disease I73.9 Ac tive 272076444 Problem Insomnia G47.00 Active 736952951 Problem Microcytic anemia D50.9 Active 23 5752398 Problem Pharyngeal dysphagia R13.13 Active 07525946359231 Problem Other iron deficiency anemia D50.8 A ctive 00244355 Problem Reactive depression F32.9 Active 03486091 Problem Paroxysmal atrial fibrillation I48.0 Active 638070839 Problem 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 Active 79232698 Problem Encounter for suprapubic catheter care Z43.5 Active 584591500 Problem Neurogenic bladder N31.9 Active 3 [id number] ALLERGIES No Information ENCOUNTERS Encounter Location Date Diagnosis [facility] [address] [facility] [id number] [address] [place] [phone] Jan, Anxiety F41.9 and Strain of right shoulder, subsequent encounter S46.911D [facility] [address] [facility] [id number] [address] [place] [phone] Jan, [facility] [address] [place] [id number] Jan, Neurogenic bladder N31.9 [facility] [address] [facility] [id number] [address] [place] [phone] Dec, [place] [address] [id number] [address] [place] [phone] Dec, [place] [address] [id number] [address] [place] [address] Dec, Anxiety F41.9 and Strain of right shoulder, subsequent encounter S46.911D [place] [address] [id number] [address] [place] [phone] 10 Dec, 2019 Other iron deficiency anemia D50.8 [place] [address] [id number] [address] [place] [phone] 04 Dec, 2019 Via [facility] [address] [place] [id number] Dec, Encounter for suprapubic catheter care Z 43.5 and Microcytic anemia D50.9 [place] [address] [id number] [address] [place] [phone] Dec, [place] [address] [id number] [address] [place] [phone] Nov, Anxiety F41.9 and Strain of right shoulder, subsequent encounter S46.911D [place] [address] [id number] [address] [place] [address] Nov, Hypertension I10 Via [facility] [address] [place] [id number] Nov, Pneumonia of both lungs due to infectiou s organism, unspecified part of lung J18.9 and Suprapubic catheter Z93.59 [place] [address] [id number] [address] [place] [address] Nov, Hypertension I10 and Reactiv e depression F32.9 [place] [address] [id number] [address] [place] [id number] Oct, Strain of right shoulder, scherer bsequent encounter S46.911D and Anxiety F41.9 [facility] [address] [id number] [address] [place] [id number] 16 Oct, 2019 Via [facility] [address] [place] [id number] Oct, Suprapubic catheter Z93.59 and Candidias is, intertriginous B37.2 [facility] [address] [id number] [address] [place] [id number] Oct, Suprapubic catheter Z93.59 [facility] [address] [id number] [address] [place] [address] Oct, Anxiety F41.9 and Strain of right shoulder, subsequent encounter S46.911D [facility] [address] [id number] [address] [place] [id number] Sep, [facility] [address] [id number] [address] [place] [phone] Sep, [facility] [address] [id number] [address] [place] [phone] Sep, Via [facility] [address] [place] [id number] Sep, Suprapubic catheter Z93.59 [facility] [address] [id number] [address] [place] [address] Sep, Anxiety F41.9 and Strain of right shoulder, subsequent encounter S46.911D [facility] [address] [id number] [address] [place] [phone] Aug, [facility] [address] [id number] [address] [place] [id number] Aug, [facility] [address] [id number] [address] [place] [address] Aug, Anxiety F41.9 and Strain of right shoulder, subsequent encounter S46.911D [facility] [address] [place] [id number] Aug, Suprapubic catheter Z93.59 [facility] [address] [id number] [address] [place] [address] Jul, Strain of right shoulder, scherer bsequent encounter S46.911D and Anxiety F41.9 [facility] [address] [id number] [address] [place] [address] Jul, Anxiety F41.9 [place] [address] [id number] [address] [place] [address] Jun, [place] [address] [id number] [address] [place] [phone] Jun, [place] [address] [id number] [address] [place] [address] Jun, [place] [address] [id number] [address] [place] [address] Jun, Strain of right shoulder, scherer bsequent encounter S46.911D [place] [address] [id number] [address] [place] [address] Jun, Strain of right shoulder, scherer bsequent encounter S46.911D [place] [address] [id number] [address] [place] [address] Jun, Anxiety F41.9 Via [facility] [address] [place] [id number] Jun, Neurogenic bladder N31.9 and Anxiety F41 .9 [facility] [address] [place] [id number] May, Anxiety F41.9 [place] [address] [id number] [address] [place] [address] May, Dysuria R30.0 [place] [address] [id number] [address] [place] [address] May, Strain of right shoulder, scherer bsequent encounter S46.911D and Anxiety F41.9 [place] [address] [id number] [address] [place] [phone] 27 Apr, 2019 Via [facility] [address] [place] [id number] 18 Apr, 2019 Strain of right shoulder, subsequent enc ounter S46.911D [facility] [address] [id number] [address] [place] [id number] 14 Apr, 2019 Strain of right shoulder, scherer bsequent encounter S46.911D and Anxiety F41.9 [facility] [address] [place] [id number] Apr, Type 2 diabetes mellitus without complic ation, without long-term current use of insulin E11.9 and Neurogenic bladder N31.9 [facility] [address] [place] [address] Apr, Strain of right shoulder, subsequent enc ounter S46.911D ; History of GI bleed Z87.19 ; Neurogenic bladder N31.9 and Reactive depression F32.9 [place] [address] [id number] [address] [place] [address] Apr, Acute pain of left shoulder M25.512 [place] [address] [id number] [address] [place] [address] Apr, [place] [address] [id number] [address] [place] [address] Apr, Anxiety F41.9 and 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 [facility] [address] [place] [id number] March, Gastrointestinal hemorrhage associated w ith acute gastritis K29.01 [place] [address] [id number] [address] [place] [address] March, Via [facility] [address] [place] [id number] March, Bronchitis J40 [place] [address] [id number] [address] [place] [phone] March, Cough R05 [place] [address] [id number] [address] [place] [address] March, Other chronic pain G89.29 [facility] [address] [id number] [address] [place] [address] March, Anxiety F41.9 [facility] [address] [id number] [address] [place] [address] March, [facility] [address] [id number] [address] [place] [address] Feb, Other chronic pain G89.29 [facility] [address] [id number] [address] [place] [address] Feb, Anxiety F41.9 [facility] [address] [id number] [address] [place] [phone] Feb, Other chronic pain G89.29 [facility] [address] [place] [id number] Feb, Neurogenic bladder N31.9 and Suprapubic catheter Z93.59 [facility] [address] [id number] [address] [place] [address] Jan, Anxiety F41.9 [facility] [address] [id number] [address] [place] [address] Dec, Anxiety F41.9 [facility] [address] [id number] [address] [place] [address] Dec, Other chronic pain G89.29 an d Anxiety F41.9 [facility] [address] [id number] [address] [place] [address] Dec, Via [employer] [facility] [address] [place] [address] Dec, Neurogenic bladder N31.9 and Suprapubic catheter Z93.59 [facility] [address] [id number] [address] [place] [phone] Nov, Other chronic pain G89.29 an d Anxiety F41.9 [facility] [address] [id number] [address] [place] [address] Nov, Via [employer] [facility] [address] [place] [id number] Nov, Suprapubic catheter Z93.59 [facility] [address] [id number] [address] [place] [phone] Oct, Other chronic pain G89.29 an d Anxiety F41.9 [facility] [address] [id number] [address] [place] [address] Oct, [facility] [address] [id number] [address] [place] [address] Oct, Suprapubic catheter Z93.59 [facility] [address] [id number] [address] [place] [phone] Oct, Via [facility] [address] [place] [id number] Oct, [facility] [address] [id number] [address] [place] [address] Oct, Anxiety F41.9 [facility] [address] [id number] [address] [place] [phone] Oct, Anxiety F41.9 [facility] [address] [place] [id number] Oct, Other chronic pain G89.29 [facility] [address] [id number] [address] [place] [address] Sep, Other chronic pain G89.29 [facility] [address] [place] [id number] Sep, Suprapubic catheter Z93.59 and Cervicalg ia M54.2 [facility] [address] [id number] [address] [place] [address] Sep, [facility] [address] [id number] [address] [place] [address] Sep, [facility] [address] [id number] [address] [place] [id number] Sep, Via [employer] [address] [place] [id number] Aug, Cystitis N30.90 [facility] [address] [id number] [address] [place] [phone] Aug, [facility] [address] [id number] [address] [place] [phone] Aug, Other chronic pain G89.29 [facility] [address] [id number] [address] [place] [phone] Aug, Via [facility] [address] [place] [id number] Aug, Encounter for suprapubic catheter care Z 43.5 [facility] [address] [id number] [address] [place] [phone] Jul, Via [facility] [address] [place] [id number] Jul, [facility] [address] [id number] [address] [place] [address] Jul, Other chronic pain G89.29 [facility] [address] [id number] [address] [place] [phone] Jul, [facility] [address] [id number] [address] [place] [phone] Jul, Via [facility] [address] [place] [id number] Jun, 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 [facility] [address] [id number] [address] [place] [address] Jun, Other chronic pain G89.29 [facility] [address] [id number] [address] [place] [address] Jun, Via [employer] [address] [place] [id number] May, Anxiety F41.9 ; Type 2 diabetes mellitus without complication, without long-term current use of insulin E11.9 ; Hypertension I10 ; Low back pain M54.5 ; Paroxysmal atrial fibrillation I48.0 and 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 [facility] [address] [id number] [address] [place] [address] May, Other chronic pain G89.29 Via [facility] [address] [place] [id number] May, Low back pain M54.5 [facility] [address] [id number] [address] [place] [phone] May, [facility] [address] [id number] [address] [place] [address] Apr, Other chronic pain G89.29 [facility] [address] [id number] [address] [place] [phone] Apr, [facility] [address] [id number] [address] [place] [address] Apr, Via [employer] [address] [place] [id number] Apr, Closed compression fracture of L3 lumbar vertebra with routine healing, subsequent encounter S32.030D Via [facility] [address] [place] [address] Apr, Low back pain M54.5 [facility] [address] [place] [id number] Apr, Coccydynia M53.3 [facility] [address] [id number] [address] [place] [address] March, [facility] [address] [id number] [address] [place] [address] March, Other chronic pain G89.29 [facility] [address] [id number] [address] [place] [phone] March, [facility] [address] [id number] [address] [place] [address] March, [facility] [address] [id number] [address] [place] [address] Feb, [facility] [address] [id number] [address] [place] [address] Feb, Other chronic pain G89.29 Via [facility] [address] [place] [id number] Feb, Other chronic pain G89.29 and Anxiety F4 1.9 [facility] [address] [id number] [address] [place] [phone] Feb, [facility] [address] [id number] [address] [place] [phone] Jan, [facility] [address] [id number] [address] [place] [id number] Jan, [facility] [address] [id number] [address] [place] [address] Jan, [facility] [address] [id number] [address] [place] [address] Jan, [facility] [address] [id number] [address] [place] [address] Dec, Via [facility] [address] [place] [address] Dec, Peripheral vascular disease I73.9 ; 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 ; Other chronic pain G89.29 ; Anxiety F41.9 ; Reactive depression F32.9 ; Insomnia G47.00 and Type 2 diabetes mellitus without complication, without long-term current use of insulin E11.9 [facility] [place] [id number] [address] Nov, [facility] [address] [id number] [place] [id number] Nov, Anxiety F41.9 [facility] [address] [id number] [address] [place] [phone] Nov, [facility] [address] [id number] [place] [address] Nov, Anxiety F41.9 [facility] [address] [place] [address] Nov, Status post surgery Z98.890 ; Confused R 41.0 ; Anxiety F41.9 and Other chronic pain G89.29 [facility] [address] [id number] [place] [address] Nov, Other chronic pain G89.29 [facility] [address] [facility] [id number] [address] [place] [phone] Oct, [facility] [address] [id number] [place] [id number] Oct, Other chronic pain G89.29 [facility] [address] [facility] [id number] [address] [place] [address] Oct, Anxiety F41.9 [facility] [address] [id number] [place] [address] Sep, Other chronic pain G89.29 [facility] [address] [id number] [place] [address] Sep, Via [facility] [address] [place] [address] Aug, Dysuria R30.0 and Anxiety F41.9 [facility] [address] [id number] [address] [place] [address] Aug, [facility] [address] [id number] [place] [id number] Aug, Other chronic pain G89.29 [facility] [address] [facility] [id number] [address] [place] [address] Jul, Other chronic pain G89.29 [facility] [address] [id number] [place] [id number] Jun, [facility] [address] [id number] [place] [address] Jun, Other chronic pain G89.29 [facility] [address] [id number] [address] [place] [address] Jun, [facility] [address] [facility] [id number] [address] [place] [address] May, Other chronic pain G89.29 [facility] [address] [facility] [id number] [address] [place] [address] Apr, Other chronic pain G89.29 Via [facility] [address] [place] [id number] Apr, Reactive depression F32.9 and Pharyngeal dysphagia R13.13 [facility] [address] [facility] [id number] [address] [place] [address] Apr, Urinary tract infection with out hematuria, site unspecified N39.0 [facility] [address] [facility] [id number] [address] [place] [address] March, Other chronic pain G89.29 [facility] [address] [facility] [id number] [address] [place] [phone] Feb, Other chronic pain G89.29 [facility] [address] [facility] [id number] [address] [place] [address] Feb, [facility] [address] [id number] [place] [id number] Feb, [facility] [address] [place] [id number] Feb, Dysuria R30.0 and Ventral hernia without obstruction or gangrene K43.9 [facility] [address] [id number] [address] [place] [address] Jan, Other chronic pain G89.29 [facility] [address] [id number] [place] [id number] Dec, Other chronic pain G89.29 [facility] [address] [id number] [address] [place] [id number] Nov, Other chronic pain G89.29 [facility] [address] [place] [id number] Nov, Lymphadenitis I88.9 [facility] [address] [id number] [address] [place] [address] Nov, Other chronic pain G89.29 [facility] [address] [id number] [address] [place] [address] Nov, [facility] [address] [id number] [place] [id number] Nov, Other chronic pain G89.29 [facility] [address] [place] [id number] Oct, Low back pain M54.5 ; Hypertension I10 a nd Type 2 diabetes mellitus without complication, without long-term current use of insulin E11.9 [facility] [address] [id number] [address] [place] [phone] Oct, [facility] [address] [id number] [address] [place] [phone] Oct, [facility] [address] [id number] [address] [place] [address] Oct, [facility] [address] [id number] [address] [place] [phone] Oct, [facility] [address] [id number] [address] [place] [phone] Sep, [facility] [address] [id number] [address] [place] [id number] Sep, [facility] [address] [facility] [id number] [address] [place] [id number] Aug, Other chronic pain G89.29 [facility] [address] [id number] [address] [place] [id number] Jul, [facility] [address] [id number] [address] [place] [id number] Jul, [facility] [address] [id number] [address] [place] [phone] Jul, [facility] [address] [id number] [address] [place] [phone] Jun, [facility] [address] [id number] [address] [place] [phone] Jun, [facility] [address] [place] [id number] Jun, Low back pain M54.5 ; Other chronic pain G89.29 and Coronary artery disease I25.10 [facility] [address] [id number] [address] [place] [id number] Jun, [facility] [address] [id number] [address] [place] [id number] May, [facility] [address] [id number] [address] [place] [id number] May, [facility] [address] [id number] [address] [place] [id number] May, Other chronic pain G89.29 [facility] [address] [id number] [address] [place] [id number] May, [facility] [address] [id number] [address] [place] [id number] Apr, [facility] [address] [id number] [address] [place] [id number] 17 Apr, 2016 Acute cystitis without hemat uria N30.00 [facility] [address] [id number] [address] [place] [id number] 16 Apr, 2016 Acute cystitis without hemat uria N30.00 ; Coronary artery disease I25.10 ; Low back pain M54.5 and Other chronic pain G89.29 [facility] [address] [address] [id number] [address] [place] [id number] 13 Apr, 2016 Other chronic pain G89.29 [facility] [address] [id number] [address] [place] [id number] March, Other chronic pain G89.29 [facility] [address] [id number] [address] [place] [id number] 18 Feb, 2016 [facility] [address] [id number] [address] [place] [id number] 15 Feb, 2016 Arthritis M19.90 [facility] [address] [id number] [address] [place] [id number] Feb, [facility] [address] [id number] [address] [place] [id number] 30 Jan, 2016 [facility] [address] [id number] [address] [place] [address] Jan, [facility] [address] [id number] [address] [place] [address] Jan, Other chronic pain G89.29 [facility] [address] [id number] [address] [place] [id number] Jan, Hypertension I10 ; Coronary artery disease I25.10 and Insomnia G47.00 [facility] [address] [facility] [id number] [address] [place] [id number] Jan, [facility] [address] [id number] [address] [place] [address] Dec, Right hip pain M25.551 [facility] [address] [id number] [address] [place] [phone] Dec, [facility] [address] [facility] [id number] [address] [place] [phone] Dec, [facility] [address] [facility] [id number] [address] [place] [id number] Dec, [facility] [address] [id number] [address] [place] [address] Dec, Other chronic pain G89.29 [facility] [address] [id number] [address] [place] [phone] Dec, [facility] [address] [id number] [address] [place] [id number] Nov, [facility] [address] [id number] [address] [place] [id number] Nov, Other chronic pain G89.29 [facility] [address] [id number] [address] [place] [phone] Nov, Right hip pain M25.551 and C oronary artery disease I25.10 [facility] [address] [id number] [address] [place] [id number] Nov, Other chronic pain G89.29 [facility] [address] [id number] [address] [place] [phone] Oct, [facility] [address] [id number] [address] [place] [id number] Oct, [facility] [address] [id number] [address] [place] [phone] Sep, [facility] [address] [id number] [address] [place] [phone] Sep, [facility] [address] [id number] [address] [place] [id number] Aug, [facility] [address] [id number] [address] [place] [phone] Aug, Hypertension I10 ; Coronary artery disease I25.10 and Arthritis M19.90 [facility] [address] [id number] [address] [place] [id number] Jun, [facility] [address] [id number] [address] [place] [id number] Jun, Essential hypertension, jayson gn 401.1 ; Other chronic pain 338.29 and Chronic airway obstruction, not elsewhere classified 496 [facility] [address] [id number] [address] [place] [address], [place] [address] Jun, [facility] [address] [id number] [address] [place] [address], [place] [address] Jun, [facility] [address] [id number] [address] [place] [address], [place] [address] Jun, [facility] [address] [id number] [address] [place] [address], [place] [address] May, [facility] [address] [id number] [address] [place] [address], [place] [address] May, [facility] [address] [id number] [address] [place] [address], [place] [address] Apr, [facility] [address] [id number] [address] [place] [address], [place] [address] Apr, [facility] [address] [id number] [address] [place] [address], [place] [address] Apr, [facility] [address] [id number] [address] [place] [address], [place] [address] March, [facility] [address] [id number] [address] [place] [phone] March, [facility] [address] [id number] [address] [place] [address], [place] [address] March, [facility] [address] [id number] [address] [place] [id number] March, [facility] [address] [id number] [address] [place] [phone] March, Sialadenitis 527.2 [facility] [address] [id number] [address] [place] [phone] Feb, [facility] [address] [id number] [address] [place] [phone] Feb, [facility] [address] [id number] [address] [place] [address], [place] [address] 29 Feb, 2015 [facility] [address] [id number] [address] [place] [address], [place] [address] 14 Feb, 2015 [facility] [address] [id number] [address] [place] [address], [place] [address] Feb, [facility] [address] [id number] [address] [place] [address], [place] [address] Jan, [facility] [address] [id number] [address] [place] [address], [place] [address] Jan, [facility] [address] [id number] [address] [place] [address], [place] [address] Jan, [facility] [address] [id number] [address] [place] [address], [place] [address] Jan, [facility] [address] [id number] [address] [place] [address], [place] [address] Jan, [facility] [address] [id number] [address] [place] [address], [place] [address] Jan, [facility] [address] [id number] [address] [place] [address], [place] [address] Dec, 2014 [facility] [address] [id number] [address] [place] [address], [place] [address] Dec, 2014 [facility] [address] [id number] [address] [place] [address], [place] [address] Dec, 2014 [facility] [address] [id number] [address] [place] [address], [place] [address] Dec, 2014 [facility] [address] [id number] [address] [place] [address], [place] [address] Dec, 2014 [facility] [address] [id number] [address] [place] [address], [place] [address] Dec2014 [facility] [address] [id number] [address] [place] [address], [place] [address] Nov, [facility] [address] [id number] [address] [place] [address], [place] [address] Nov, [facility] [address] [id number] [address] [place] [address], [place] [address] Nov, [facility] [address] [id number] [address] [place] [address], [place] [address] Nov, [facility] [address] [id number] [address] [place] [address], [place] [address] Nov, [facility] [address] [id number] [address] [place] [address], [place] [address] Nov, [facility] [address] [id number] [address] [place] [address], [place] [address] Nov, [facility] [address] [id number] [address] [place] [address], [place] [address] Nov, [facility] [address] [id number] [address] [place] [address], [place] [address] Nov, [facility] [address] [id number] [address] [place] [address], [place] [address] Nov, [facility] [address] [id number] [address] [place] [address], [place] [address] Nov, [facility] [address] [id number] [address] [place] [address], [place] [address] Nov, [facility] [address] [id number] [address] [place] [address], [place] [address] Nov, [facility] [address] [id number] [address] [place] [address], [place] [address] Nov, [facility] [address] [id number] [address] [place] [address], [place] [address] Oct, [facility] [address] [id number] [address] [place] [address], [place] [address] 19 Oct, 2014 [facility] [address] [id number] [address] [place] [address], [place] [address] 19 Oct, 2014 [facility] [address] [id number] [address] [place] [address], [place] [address] 18 Oct, 2014 [facility] [address] [id number] [address] [place] [address], [place] [address] 18 Oct, 2014 [facility] [address] [id number] [address] [place] [address], [place] [address] Oct, [facility] [address] [id number] [address] [place] [address], [place] [address] 17 Oct, 2014 [facility] [address] [id number] [address] [place] [address], [place] [address] Oct, [facility] [address] [id number] [address] [place] [address], [place] [address] Oct, [facility] [address] [id number] [address] [place] [address], [place] [address] Sep, [facility] [address] [id number] [address] [place] [address], [place] [address] Sep, [facility] [address] [id number] [address] [place] [address], [place] [address] Sep, [facility] [address] [id number] [address] [place] [address], [place] [address] Sep, [facility] [address] [id number] [address] [place] [address], [place] [address] Sep, [facility] [address] [id number] [address] [place] [address], [place] [address] Sep, [facility] [address] [id number] [address] [place] [address], [place] [address] Sep, [facility] [address] [id number] [address] [place] [address], [place] [address] Sep, [facility] [address] [id number] [address] [place] [address], [place] [address] Sep, [facility] [address] [id number] [address] [place] [address], [place] [address] Sep, [facility] [address] [id number] [address] [place] [address], [place] [address] Sep, [facility] [address] [id number] [address] [place] [address], [place] [address] Sep, [facility] [address] [id number] [address] [place] [address], [place] [address] Aug, [facility] [address] [id number] [address] [place] [address], [place] [address] Aug, [facility] [address] [id number] [address] [place] [address], [place] [address] Aug, [facility] [address] [id number] [address] [place] [address], [place] [address] Aug, [facility] [address] [id number] [address] [place] [address], [place] [address] Aug, [facility] [address] [id number] [address] [place] [address], [place] [address] Aug, [facility] [address] [id number] [address] [place] [address], [place] [address] Aug, [facility] [address] [id number] [address] [place] [address], [place] [address] Aug, [facility] [address] [id number] [address] [place] [address], [place] [address] 30 Jul, 2014 [facility] [address] [id number] [address] [place] [address], [place] [address] 30 Jul, 2014 [facility] [address] [id number] [address] [place] [address], [place] [address] 30 Jul, 2013 [facility] [address] [id number] [address] [place] [address], [place] [address] 30 Jul, 2014 [facility] [address] [id number] [address] [place] [address], [place] [address] Jul, [facility] [address] [id number] [address] [place] [address], [place] [address] Jul, [facility] [address] [id number] [address] [place] [address], [place] [address] 15 Jul, 2014 [facility] [address] [id number] [address] [place] [address], [place] [address] 15 Jul, 2014 [facility] [address] [id number] [address] [place] [address], [place] [address] Jul, [facility] [address] [id number] [address] [place] [address], [place] [address] Jul, [facility] [address] [id number] [address] [place] [address], [place] [address] Jun, [facility] [address] [id number] [address] [place] [address], [place] [address] Jun, [facility] [address] [id number] [address] [place] [address], [place] [address] Jun, [facility] [address] [id number] [address] [place] [address], [place] [address] Jun, [facility] [address] [id number] [address] [place] [address], [place] [address] Jun, [facility] [address] [id number] [address] [place] [address], [place] [address] Jun, [facility] [address] [id number] [address] [place] [address], [place] [address] Jun, [facility] [address] [id number] [address] [place] [address], [place] [address] Jun, [facility] [address] [id number] [address] [place] [address], [place] [address] Jun, [facility] [address] [id number] [address] [place] [address], [place] [address] Jun, [facility] [address] [id number] [address] [place] [address], [place] [address] Jun, [facility] [address] [id number] [address] [place] [address], [place] [address] Jun, [facility] [address] [id number] [address] [place] [address], [place] [address] Jun, [facility] [address] [id number] [address] [place] [address], [place] [address] Jun, [facility] [address] [id number] [address] [place] [address], [place] [address] Jun, [facility] [address] [id number] [address] [place] [address], [place] [address] Jun, [facility] [address] [id number] [address] [place] [address], [place] [address] Jun, [facility] [address] [id number] [address] [place] [address], [place] [address] Jun, [facility] [address] [id number] [address] [place] [address], [place] [address] Jun, [facility] [address] [id number] [address] [place] [address], [place] [address] Jun, [facility] [address] [id number] [address] [place] [address], [place] [address] Jun, [facility] [address] [id number] [address] [place] [address], [place] [address] Jun, [facility] [address] [id number] [address] [place] [address], [place] [address] May, [facility] [address] [id number] [address] [place] [address], [place] [address] May, [facility] [address] [id number] [address] [place] [address], [place] [address] May, [facility] [address] [id number] [facility] [place] [address] May, 2013 [facility] [address] [id number] [facility] [place] [address] May, [facility] [address] [id number] [facility] [place] [address] May, 2013 [facility] [address] [id number] [facility] [place] [address] May, 2013 [facility] [address] [id number] [facility] [place] [address] May, 2013 [facility] [address] [id number] [facility] [place] [address] May, [facility] [address] [id number] [address] [place] [address], [place] [address] May, [facility] [address] [id number] [address] [place] [address], [place] [address] May, [facility] [address] [id number] [address] [place] [address], [place] [address] May, [facility] [address] [id number] [address] [place] [address], [place] [address] May, [facility] [address] [id number] [address] [place] [address], [place] [address] Apr, [facility] [address] [id number] [address] [place] [address], [place] [address] Apr, [facility] [address] [id number] [address] [place] [address], [place] [address] Apr, [facility] [address] [id number] [address] [place] [address], [place] [address] Apr, [facility] [address] [id number] [address] [place] [address], [place] [address] Apr, [facility] [address] [id number] [address] [place] [address], [place] [address] Apr, [facility] [address] [id number] [facility] [place] [address] Apr, [facility] [address] [id number] [facility] [place] [address] Apr, [facility] [address] [id number] [facility] [place] [address] Apr, [facility] [address] [id number] [address] [place] [address], [place] [address] March, [facility] [address] [id number] [address] [place] [address], [place] [address] March, [facility] [address] [id number] [address] [place] [address], [place] [address] March, [facility] [address] [id number] [address] [place] [address], [place] [address] March, [facility] [address] [id number] [address] [place] [address], [place] [address] March, [facility] [address] [id number] [address] [place] [address], [place] [address] March, [facility] [address] [id number] [address] [place] [address], [place] [address] March, [facility] [address] [id number] [address] [place] [address], [place] [address] March, [facility] [address] [id number] [address] [place] [address], [place] [address] March, [facility] [address] [id number] [address] [place] [address], [place] [address] March, [facility] [address] [id number] [address] [place] [address], [place] [address] March, [facility] [address] [id number] [address] [place] [address], [place] [address] March, [facility] [address] [id number] [address] [place] [address], [place] [address] March, [facility] [address] [id number] [address] [place] [address], [place] [address] March, [facility] [address] [id number] [address] [place] [address], [place] [address] March, [facility] [address] [id number] [address] [place] [address], [place] [address] March, [facility] [address] [id number] [address] [place] [address], [place] [address] March, [facility] [address] [id number] [address] [place] [address], [place] [address] March, [facility] [address] [id number] [address] [place] [address], [place] [address] March, [facility] [address] [id number] [address] [place] [address], [place] [address] March, [facility] [address] [id number] [address] [place] [address], [place] [address] Feb, [facility] [address] [id number] [address] [place] [address], [place] [address] Feb, [facility] [address] [id number] [address] [place] [address], [place] [address] Feb, [facility] [address] [id number] [address] [place] [address], [place] [address] Feb, [facility] [address] [id number] [address] [place] [address], [place] [address] Feb, [facility] [address] [id number] [address] [place] [address], [place] [address] Feb, [facility] [address] [id number] [address] [place] [address], [place] [address] Feb, [facility] [address] [id number] [address] [place] [address], [place] [address] Feb, [facility] [address] [id number] [facility] [place] [address] Jan, [facility] [address] [id number] [facility] [place] [address] Jan, [facility] [address] [id number] [facility] [place] [address] Jan, [facility] [address] [id number] [facility] [place] [address] 24 Jan, 2014 [facility] [address] [id number] [address] [place] [address], [place] [address] Jan, [facility] [address] [id number] [address] [place] [address], [place] [address] Jan, [facility] [address] [id number] [address] [place] [address], [place] [address] Jan, [facility] [address] [id number] [address] [place] [address], [place] [address] Jan, [facility] [address] [id number] [address] [place] [address], [place] [address] Jan, [facility] [address] [id number] [address] [place] [address], [place] [address] Jan, [facility] [address] [id number] [address] [place] [address], [place] [address] Dec, [facility] [address] [id number] [address] [place] [address], [place] [address] Dec, [facility] [address] [id number] [address] [place] [address], [place] [address] Dec, [facility] [address] [id number] [address] [place] [address], [place] [address] 2013 [facility] [address] [id number] [address] [place] [address], [place] [address] Dec, [facility] [address] [id number] [address] [place] [address], [place] [address] Dec, [facility] [address] [id number] [address] [place] [address], [place] [address] Dec, [facility] [address] [id number] [address] [place] [address], [place] [address] Dec, [facility] [address] [id number] [address] [place] [address], [place] [address] Nov, [facility] [address] [id number] [address] [place] [address], [place] [address] Nov, [facility] [address] [id number] [address] [place] [address], [place] [address] Nov, [facility] [address] [id number] [address] [place] [address], [place] [address] Nov, [facility] [address] [id number] [address] [place] [address], [place] [address] Nov, [facility] [address] [id number] [address] [place] [address], [place] [address] Nov, [facility] [address] [id number] [address] [place] [address], [place] [address] Nov, [facility] [address] [id number] [address] [place] [address], [place] [address] Nov, [facility] [address] [id number] [address] [place] [address], [place] [address] Nov, [facility] [address] [id number] [address] [place] [address], [place] [address] Nov, [facility] [address] [id number] [address] [place] [address], [place] [address] Nov, [facility] [address] [id number] [address] [place] [address], [place] [address] Nov, [facility] [address] [id number] [address] [place] [address], [place] [address] Nov, [facility] [address] [id number] [address] [place] [address], [place] [address] 30 Oct, 2013 [facility] [address] [id number] [address] [place] [address], [place] [address] Oct, [facility] [address] [id number] [address] [place] [address], [place] [address] Oct, [facility] [address] [id number] [address] [place] [address], [place] [address] Oct, [facility] [address] [id number] [address] [place] [address], [place] [address] Oct, [facility] [address] [id number] [address] [place] [address], [place] [address] Oct, [facility] [address] [id number] [address] [place] [address], [place] [address] Oct, [facility] [address] [id number] [address] [place] [address], [place] [address] Oct, [facility] [address] [id number] [address] [place] [address], [place] [address] Oct, [facility] [address] [id number] [address] [place] [address], [place] [address] Oct, [facility] [address] [id number] [address] [place] [address], [place] [address] Oct, [facility] [address] [id number] [address] [place] [address], [place] [address] Oct, [facility] [address] [id number] [address] [place] [address], [place] [address] Oct, [facility] [address] [id number] [address] [place] [address], [place] [address] Oct, [facility] [address] [id number] [address] [place] [address], [place] [address] 14 Sep, 2013 [facility] [address] [id number] [address] [place] [address], [place] [address] Sep, [facility] [address] [id number] [address] [place] [address], [place] [address] Sep, [facility] [address] [id number] [address] [place] [address] Sep, [facility] [address] [id number] [address] [place] [id number] Sep, [facility] [address] [id number] [address] [place] [id number] Sep, [facility] [address] [id number] [address] [place] [address], [place] [address] Sep, [facility] [address] [id number] [address] [place] [address] Sep, [facility] [address] [id number] [address] [place] [id number] Sep, [facility] [address] [id number] [address] [place] [address] Sep, [facility] [address] [id number] [address] [place] [address] Aug, [facility] [address] [id number] [address] [place] [id number] Aug, [facility] [address] [id number] [address] [place] [id number] Aug, [facility] [address] [id number] [address] [place] [id number] Aug, [facility] [address] [id number] [address] [place] [address], [place] [address] Aug, [facility] [address] [id number] [address] [place] [id number] Aug, [facility] [address] [id number] [address] [place] [id number] Aug, [facility] [address] [id number] [address] [place] [address], [place] [address] 23 Aug, 2012 [facility] [address] [id number] [address] [place] [address], [place] [address] 22 Aug, 2012 [facility] [address] [id number] [address] [place] [address], [place] [address] 22 Aug, 2012 [facility] [address] [id number] [address] [place] [address], [place] [address] 18 Aug, 2012 [facility] [address] [id number] [address] [place] [address], [place] [address] 18 Aug, 2012 [facility] [address] [id number] [address] [place] [address], [place] [address] 18 Aug, 2013 [facility] [address] [id number] [address] [place] [address], [place] [address] 18 Aug, 2013 [facility] [address] [id number] [address] [place] [address], [place] [address] 17 Aug, 2012 [facility] [address] [id number] [address] [place] [address], [place] [address] 14 Aug, 2013 [facility] [address] [id number] [address] [place] [address], [place] [address] 14 Aug, 2013 [facility] [address] [id number] [address] [place] [address], [place] [address] 01 Aug, 2013 [facility] [address] [id number] [address] [place] [address], [place] [address] 20 Jul, 2012 [facility] [address] [id number] [address] [place] [address], [place] [address] 19 Sep, 2012 [facility] [address] [id number] [address] [place] [address], [place] [address] 18 Sep, 2012 [facility] [address] [id number] [address] [place] [address], [place] [address] 11 Jul, 2012 [facility] [address] [id number] [address] [place] [address], [place] [address] Jul, [facility] [address] [id number] [address] [place] [address], [place] [address] Jun, [facility] [address] [id number] [address] [place] [address], [place] [address] Jun, [facility] [address] [id number] [address] [place] [address], [place] [address] Jun, [facility] [address] [id number] [address] [place] [address], [place] [address] Jun, [facility] [address] [id number] [address] [place] [address], [place] [address] Jun, [facility] [address] [id number] [address] [place] [address], [place] [address] Jun, [facility] [address] [id number] [address] [place] [address], [place] [address] Jun, [facility] [address] [id number] [address] [place] [address], [place] [address] Jun, [facility] [address] [id number] [address] [place] [address], [place] [address] Jun, [facility] [address] [id number] [address] [place] [address], [place] [address] Jun, [facility] [address] [id number] [address] [place] [address], [place] [address] May, [facility] [address] [id number] [address] [place] [address], [place] [address] May, [facility] [address] [id number] [address] [place] [address], [place] [address] May, [facility] [address] [id number] [address] [place] [address], [place] [address] May, [facility] [address] [id number] [address] [place] [address], [place] [address] May, [facility] [address] [id number] [address] [place] [address], [place] [address] 16 May, 2013 [facility] [address] [id number] [address] [place] [address], [place] [address] May, [facility] [address] [id number] [address] [place] [address], [place] [address] May, [facility] [address] [id number] [address] [place] [address], [place] [address] May, [facility] [address] [id number] [address] [place] [address], [place] [address] Apr, [facility] [address] [id number] [address] [place] [address], [place] [address] Apr, [facility] [address] [id number] [address] [place] [address], [place] [address] Apr, [facility] [address] [id number] [address] [place] [address], [place] [address] Apr, [facility] [address] [id number] [address] [place] [address], [place] [address] Apr, [facility] [address] [id number] [address] [place] [address], [place] [address] Apr, [facility] [address] [id number] [address] [place] [address], [place] [address] Apr, [facility] [address] [id number] [address] [place] [address], [place] [address] March, [facility] [address] [id number] [address] [place] [address], [place] [address] Feb, [facility] [address] [id number] [address] [place] [address], [place] [address] Feb, [facility] [address] [id number] [address] [place] [address], [place] [address] Feb, [facility] [address] [id number] [address] [place] [address], [place] [address] Jan, [facility] [address] [id number] [address] [place] [address], [place] [address] 21 Jan, 2013 [facility] [address] [id number] [address] [place] [address], [place] [address] 19 Jan, 2013 [facility] [address] [id number] [address] [place] [address], [place] [address] 14 Jan, 2013 [facility] [address] [id number] [address] [place] [address], [place] [address] 12 Jan, 2013 [facility] [address] [id number] [address] [place] [address], [place] [address] 08 Jan, 2013 [facility] [address] [id number] [address] [place] [address], [place] [address] 07 Jan, 2013 [facility] [address] [id number] [address] [place] [address], [place] [address] 04 Jan, 2013 [facility] [address] [id number] [address] [place] [address], [place] [address] 28 Dec, 2012 [facility] [address] [id number] [address] [place] [address], [place] [address] 25 Dec, 2012 [facility] [address] [id number] [address] [place] [address], [place] [address] 13 Dec, 2012 [facility] [address] [id number] [address] [place] [address], [place] [address] 11 Dec, 2012 [facility] [address] [id number] [address] [place] [address], [place] [address] 07 Dec, 2012 [facility] [address] [id number] [address] [place] [address], [place] [address] 06 Dec, 2012 [facility] [address] [id number] [address] [place] [address], [place] [address] 05 Dec, 2012 [facility] [address] [id number] [address] [place] [address], [place] [address] Nov, [facility] [address] [id number] [address] [place] [address], [place] [address] Nov, [facility] [address] [id number] [address] [place] [address], [place] [address] 18 Nov, 2012 [facility] [address] [id number] [address] [place] [address], [place] [address] 15 Nov, 2012 [facility] [address] [id number] [address] [place] [address], [place] [address] Nov, [facility] [address] [id number] [address] [place] [address], [place] [address] Nov, [facility] [address] [id number] [address] [place] [address], [place] [address] Nov, [facility] [address] [id number] [address] [place] [address], [place] [address] Oct, [facility] [address] [id number] [address] [place] [address], [place] [address] Oct, [facility] [address] [id number] [address] [place] [address], [place] [address] Oct, [facility] [address] [id number] [address] [place] [address], [place] [address] Oct, [facility] [address] [id number] [address] [place] [address], [place] [address] Oct, [facility] [address] [id number] [address] [place] [address], [place] [address] Oct, [facility] [address] [id number] [address] [place] [address], [place] [address] Oct, [facility] [address] [id number] [address] [place] [address], [place] [address] Oct, [facility] [address] [id number] [address] [place] [address], [place] [address] 05 Oct, 2012 [facility] [address] [id number] [address] [place] [address], [place] [address] 05 Oct, 2012 [facility] [address] [id number] [address] [place] [address], [place] [address] Oct, [facility] [address] [id number] [address] [place] [address], [place] [address] Oct, [facility] [address] [id number] [address] [place] [address], [place] [address] Sep, [facility] [address] [id number] [address] [place] [address], [place] [address] Sep, [facility] [address] [id number] [address] [place] [address], [place] [address] Sep, [facility] [address] [id number] [address] [place] [address], [place] [address] Sep, [facility] [address] [id number] [address] [place] [address], [place] [address] Sep, [facility] [address] [id number] [address] [place] [address], [place] [address] Sep, [facility] [address] [id number] [address] [place] [address], [place] [address] Sep, [facility] [address] [id number] [address] [place] [address], [place] [address] Sep, [facility] [address] [id number] [address] [place] [address], [place] [address] Sep, [facility] [address] [id number] [address] [place] [address], [place] [address] Sep, [facility] [address] [id number] [address] [place] [address], [place] [address] Sep, [facility] [address] [id number] [address] [place] [address], [place] [address] Aug, [facility] [address] [id number] [address] [place] [address], [place] [address] Aug, [facility] [address] [id number] [address] [place] [address], [place] [address] Aug, [facility] [address] [id number] [address] [place] [address], [place] [address] Aug, [facility] [address] [id number] [address] [place] [address], [place] [address] Aug, [facility] [address] [id number] [address] [place] [address], [place] [address] Aug, [facility] [address] [id number] [address] [place] [address], [place] [address] Aug, [facility] [address] [id number] [address] [place] [address], [place] [address] Aug, [facility] [address] [id number] [address] [place] [address], [place] [address] Aug, [facility] [address] [id number] [address] [place] [address], [place] [address] Aug, [facility] [address] [id number] [address] [place] [address], [place] [address] Jul, [facility] [address] [id number] [address] [place] [address], [place] [address] 20 Jul, 2012 [facility] [address] [id number] [address] [place] [address], [place] [address] 10 Jul, 2012 [facility] [address] [id number] [address] [place] [address], [place] [address] 06 Jul, 2012 [facility] [address] [id number] [address] [place] [address], [place] [address] 30 Jun, 2012 [facility] [address] [id number] [address] [place] [address], [place] [address] Jun, [facility] [address] [id number] [address] [place] [address], [place] [address] 16 Jun, 2012 [facility] [address] [id number] [address] [place] [address], [place] [address] Jun, [facility] [address] [id number] [address] [place] [address] [place] [address] Jun, [facility] [address] [id number] [address] [place] [address], [place] [address] Jun, [facility] [address] [id number] [address] [place] [address], [place] [address] Jun, [facility] [address] [id number] [address] [place] [address], [place] [address] May, [facility] [address] [id number] [address] [place] [address], [place] [address] May, [facility] [address] [id number] [address] [place] [address], [place] [address] May, [facility] [address] [id number] [address] [place] [address], [place] [address] May, [facility] [address] [id number] [address] [place] [address], [place] [address] May, [facility] [address] [id number] [address] [place] [address], [place] [address] Apr, [facility] [address] [id number] [address] [place] [address], [place] [address] Apr, [facility] [address] [id number] [address] [place] [address], [place] [address] Apr, [facility] [address] [id number] [address] [place] [address], [place] [address] Apr, [facility] [address] [id number] [address] [place] [address], [place] [address] Apr, [facility] [address] [id number] [address] [place] [address], [place] [address] March, [facility] [address] [id number] [address] [place] [address], [place] [address] March, [facility] [address] [id number] [address] [place] [address], [place] [address] March, [facility] [address] [id number] [address] [place] [address], [place] [address] March, [facility] [address] [id number] [address] [place] [address], [place] [address] March, [facility] [address] [id number] [address] [place] [address], [place] [address] March, [facility] [address] [id number] [address] [place] [address], [place] [address] March, [facility] [address] [id number] [address] [place] [address], [place] [address] March, [facility] [address] [id number] [address] [place] [address], [place] [address] March, [facility] [address] [id number] [address] [place] [address], [place] [address] March, [facility] [address] [id number] [address] [place] [address], [place] [address] 30 Feb, 2012 [facility] [address] [id number] [address] [place] [address], [place] [address] Feb, [facility] [address] [id number] [address] [place] [address], [place] [address] Feb, [facility] [address] [id number] [address] [place] [address], [place] [address] Feb, [facility] [address] [id number] [address] [place] [address], [place] [address] 17 Feb, 2012 [facility] [address] [id number] [address] [place] [address], [place] [address] Feb, [facility] [address] [id number] [address] [place] [address], [place] [address] Feb, [facility] [address] [id number] [address] [place] [address], [place] [address] Feb, [facility] [address] [id number] [address] [place] [address], [place] [address] Feb, [facility] [address] [id number] [address] [place] [address], [place] [address] Jan, [facility] [address] [id number] [address] [place] [address], [place] [address] Jan, [facility] [address] [id number] [address] [place] [address], [place] [address] Jan, [facility] [address] [id number] [address] [place] [address], [place] [address] Jan, [facility] [address] [id number] [address] [place] [address], [place] [address] Dec, [facility] [address] [id number] [address] [place] [address], [place] [address] Dec, [facility] [address] [id number] [address] [place] [address], [place] [address] Nov, [facility] [address] [id number] [address] [place] [address], [place] [address] Nov, [facility] [address] [id number] [address] [place] [address], [place] [address] Nov, [facility] [address] [id number] [address] [place] [address], [place] [address] Nov, [facility] [address] [id number] [address] [place] [address], [place] [address] Nov, [facility] [address] [id number] [address] [place] [address], [place] [id number] Oct, [facility] [address] [id number] [address] [place] [address], [place] [id number] Oct, [facility] [address] [id number] [address] [place] [address], [place] [id number] Oct, [facility] [address] [id number] [address] [place] [address], [place] [id number] Oct, [facility] [address] [id number] [address] [place] [phone] Oct, [facility] [address] [facility] [id number] [address] [place] [id number] Oct, [facility] [address] [facility] [id number] [address] [place] [id number] Oct, [facility] [address] [facility] [id number] [address] [place] [phone] Oct, [facility] [address] [facility] [id number] [address] [place] [phone] Sep, IMMUNIZATIONS No Known Immunizations SOCIAL HISTORY [...] History No Surgical history information Hospitalization History [facility], [place], operated by [facility]- Urosepsis, ab d pain and fever, discharged 11/27/2017 11/26/2017 Hospitalization History [facility] [place]- Went Unrepsonsive, Hit head 2017 Hospitalization History [facility] [place]- Back Pain 8
--- OUTSIDE RECORDS SUMMARY | 2020-06-18 14:47 | XMS REPORT ---
Author Author Sanjuanita Abdul Doctor Organization [facility] Address Unknown Phone Unavailable Care Team Providers Care Program Analyst Name Role Phone Migration, Doctor Unavailable Unavailable PROBLEMS Type Condition ICD9-CM Code QZP67-IE Code Onset Dates Condition S tatus SNOMED Code Problem Hypertension I10 Active 8311346 3 Problem Hyperlipidemia E78.5 Active 39656 004 Problem Coronary artery disease I25.10 Active 69909555 Problem Low back pain M54.5 Active 197715 009 Problem Other chronic pain G89.29 Active 8 8503228 Problem Ventral hernia without obstruction or gangrene K43 .9 Active 060165505 Problem Type 2 diabetes mellitus wit hout complication, without long-term current use of insulin E11.9 Active 184747251 Problem Anxiety F41.9 Active 03221488 Problem Peripheral vascular disease I73.9 Ac tive 285419466 Problem Insomnia G47.00 Active 256414571 Problem Microcytic anemia D50.9 Active 23 2279623 Problem Pharyngeal dysphagia R13.13 Active 23597829794567 Problem Other iron deficiency anemia D50.8 A ctive 59660724 Problem Reactive depression F32.9 Active 33983933 Problem Paroxysmal atrial fibrillation I48.0 Active 936742422 Problem 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 Active 23424634 Problem Encounter for suprapubic catheter care Z43.5 Active 332247670 Problem Neurogenic bladder N31.9 Active 3 43408831 ALLERGIES No Information ENCOUNTERS Encounter Location Date Diagnosis [facility] [address] [facility] [id number] [address] [place] [id number] Jan, Anxiety F41.9 and Strain of right shoulder, subsequent encounter S46.911D [facility] [address] [facility] [id number] [address] [place] [id number] Jan, [facility] [address] [place] [id number] Jan, Neurogenic bladder N31.9 [facility] [address] [facility] [id number] [address] [place] [id number] Dec, [place] [address] [id number] [address] [place] [address] Dec, [place] [address] [id number] [address] [place] [id number] Dec, Anxiety F41.9 and Strain of right shoulder, subsequent encounter S46.911D [place] [address] [id number] [address] [place] [id number] 10 Dec, 2019 Other iron deficiency anemia D50.8 [place] [address] [id number] [address] [place] [id number] 04 Dec, 2019 [facility] [address] [place] [id number] Dec, Encounter for suprapubic catheter care Z 43.5 and Microcytic anemia D50.9 [place] [address] [id number] [address] [place] [id number] Dec, [place] [address] [id number] [address] [place] [id number] Nov, Anxiety F41.9 and Strain of right shoulder, subsequent encounter S46.911D [place] [address] [id number] [address] [place] [id number] Nov, Hypertension I10 [facility] [employer] [address] [place] [id number] Nov, Pneumonia of both lungs due to infectiou s organism, unspecified part of lung J18.9 and Suprapubic catheter Z93.59 [place] [address] [id number] [address] [place] [id number] Nov, Hypertension I10 and Reactiv e depression F32.9 [place] [address] [id number] [address] [place] [id number] Oct, Strain of right shoulder, scherer bsequent encounter S46.911D and Anxiety F41.9 [facility] [address] [id number] [address] [place] [id number] 16 Oct, 2019 Via [facility] [address] [place] [id number] Oct, Suprapubic catheter Z93.59 and Candidias is, intertriginous B37.2 [facility] [address] [id number] [address] [place] [id number] Oct, Suprapubic catheter Z93.59 [facility] [address] [id number] [address] [place] [id number] Oct, Anxiety F41.9 and Strain of right shoulder, subsequent encounter S46.911D [facility] [address] [id number] [address] [place] [id number] Sep, [facility] [address] [id number] [address] [place] [phone] Sep, [facility] [address] [id number] [address] [place] [id number] Sep, Via [employer] [address] [place] [id number] Sep, Suprapubic catheter Z93.59 [facility] [address] [id number] [address] [place] [id number] Sep, Anxiety F41.9 and Strain of right shoulder, subsequent encounter S46.911D [facility] [address] [id number] [address] [place] [id number] Aug, [facility] [address] [id number] [address] [place] [id number] Aug, [facility] [address] [id number] [address] [place] [id number] Aug, Anxiety F41.9 and Strain of right shoulder, subsequent encounter S46.911D [facility] [employer] [facility] [address] [place] [id number] Aug, Suprapubic catheter Z93.59 [facility] [address] [id number] [address] [place] [id number] Jul, Strain of right shoulder, scherer bsequent encounter S46.911D and Anxiety F41.9 [facility] [address] [id number] [address] [place] [id number] Jul, Anxiety F41.9 [place] [address] [id number] [address] [place] [phone] Jun, [place] [address] [id number] [address] [place] [phone] Jun, [place] [address] [id number] [address] [place] [id number] Jun, [place] [address] [id number] [address] [place] [id number] Jun, Strain of right shoulder, scherer bsequent encounter S46.911D [place] [address] [id number] [address] [place] [id number] Jun, Strain of right shoulder, scherer bsequent encounter S46.911D [place] [address] [id number] [address] [place] [phone] Jun, Anxiety F41.9 [facility] [address] [place] [id number] Jun, Neurogenic bladder N31.9 and Anxiety F41 .9 [facility] [address] [place] [id number] May, Anxiety F41.9 [place] [address] [id number] [address] [place] [phone] May, Dysuria R30.0 [place] [address] [id number] [address] [place] [id number] May, Strain of right shoulder, scherer bsequent encounter S46.911D and Anxiety F41.9 [place] [address] [id number] [address] [place] [id number] 27 Apr, 2019 Via [facility] [employer] [address] [place] [id number] 18 Apr, 2019 Strain of right shoulder, subsequent enc ounter S46.911D [facility] [address] [id number] [address] [place] [id number] 14 Apr, 2019 Strain of right shoulder, scherer bsequent encounter S46.911D and Anxiety F41.9 [facility] [address] [place] [id number] Apr, Type 2 diabetes mellitus without complic ation, without long-term current use of insulin E11.9 and Neurogenic bladder N31.9 [facility] [address] [place] [id number] Apr, Strain of right shoulder, subsequent enc ounter S46.911D ; History of GI bleed Z87.19 ; Neurogenic bladder N31.9 and Reactive depression F32.9 [place] [address] [id number] [address] [place] [id number] Apr, Acute pain of left shoulder M25.512 [place] [address] [id number] [address] [place] [id number] Apr, [place] [address] [id number] [address] [place] [id number] Apr, Anxiety F41.9 and 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 [facility] [address] [place] [id number] March, Gastrointestinal hemorrhage associated w ith acute gastritis K29.01 [place] [address] [id number] [address] [place] [phone] March, [facility] [address] [place] [id number] March, Bronchitis J40 [place] [address] [id number] [address] [place] [address] March, Cough R05 [place] [address] [id number] [address] [place] [phone] March, Other chronic pain G89.29 [facility] [address] [id number] [address] [place] [id number] March, Anxiety F41.9 [facility] [address] [id number] [address] [place] [id number] March, [facility] [address] [id number] [address] [place] [id number] Feb, Other chronic pain G89.29 [facility] [address] [id number] [address] [place] [address] Feb, Anxiety F41.9 [facility] [address] [id number] [address] [place] [id number] Feb, Other chronic pain G89.29 [facility] [address] [place] [id number] Feb, Neurogenic bladder N31.9 and Suprapubic catheter Z93.59 [facility] [address] [id number] [address] [place] [id number] Jan, Anxiety F41.9 [facility] [address] [id number] [address] [place] [id number] Dec, Anxiety F41.9 [facility] [address] [id number] [address] [place] [id number] Dec, Other chronic pain G89.29 an d Anxiety F41.9 [facility] [address] [id number] [address] [place] [id number] Dec, Via [facility] [address] [place] [id number] Dec, Neurogenic bladder N31.9 and Suprapubic catheter Z93.59 [facility] [address] [id number] [address] [place] [id number] Nov, Other chronic pain G89.29 an d Anxiety F41.9 [facility] [address] [id number] [address] [place] [id number] Nov, Via [employer] [facility] [address] [place] [id number] Nov, Suprapubic catheter Z93.59 [facility] [address] [id number] [address] [place] [id number] Oct, Other chronic pain G89.29 an d Anxiety F41.9 [facility] [address] [id number] [address] [place] [id number] Oct, [facility] [address] [id number] [address] [place] [id number] Oct, Suprapubic catheter Z93.59 [facility] [address] [id number] [address] [place] [id number] Oct, [facility] [address] [place] [id number] Oct, [facility] [address] [id number] [address] [place] [id number] Oct, Anxiety F41.9 [facility] [address] [id number] [address] [place] [id number] Oct, Anxiety F41.9 [facility] [address] [place] [id number] Oct, Other chronic pain G89.29 [facility] [address] [id number] [address] [place] [id number] Sep, Other chronic pain G89.29 Via [facility] [address] [place] [id number] Sep, Suprapubic catheter Z93.59 and Cervicalg ia M54.2 [facility] [address] [id number] [address] [place] [id number] Sep, [facility] [address] [id number] [address] [place] [id number] Sep, [facility] [address] [id number] [address] [place] [id number] Sep, Via [facility] [address] [place] [id number] Aug, Cystitis N30.90 [facility] [address] [id number] [address] [place] [id number] Aug, [facility] [address] [id number] [address] [place] [id number] Aug, Other chronic pain G89.29 [facility] [address] [id number] [address] [place] [id number] Aug, Via [employer] [address] [place] [id number] Aug, Encounter for suprapubic catheter care Z 43.5 [facility] [address] [id number] [address] [place] [id number] Jul, Via [employer] [address] [place] [id number] Jul, [facility] [address] [id number] [address] [place] [id number] Jul, Other chronic pain G89.29 [facility] [address] [id number] [address] [place] [id number] Jul, [facility] [address] [id number] [address] [place] [id number] Jul, Via [employer] [address] [place] [id number] Jun, 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 [facility] [address] [id number] [address] [place] [id number] Jun, Other chronic pain G89.29 [facility] [address] [id number] [address] [place] [id number] Jun, Via [facility] [address] [place] [id number] May, Anxiety F41.9 ; Type 2 diabetes mellitus without complication, without long-term current use of insulin E11.9 ; Hypertension I10 ; Low back pain M54.5 ; Paroxysmal atrial fibrillation I48.0 and 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 [facility] [address] [id number] [address] [place] [id number] May, Other chronic pain G89.29 Via [facility] [address] [place] [id number] May, Low back pain M54.5 [facility] [address] [id number] [address] [place] [id number] May, [facility] [address] [id number] [address] [place] [id number] Apr, Other chronic pain G89.29 [facility] [address] [id number] [address] [place] [address] Apr, [facility] [address] [id number] [address] [place] [phone] Apr, Via [employer] [address] [place] [id number] Apr, Closed compression fracture of L3 lumbar vertebra with routine healing, subsequent encounter S32.030D [facility] [employer] [address] [place] [id number] Apr, Low back pain M54.5 [facility] [address] [place] [id number] Apr, Coccydynia M53.3 [facility] [address] [id number] [address] [place] [phone] March, [facility] [address] [id number] [address] [place] [id number] March, Other chronic pain G89.29 [facility] [address] [id number] [address] [place] [id number] March, [facility] [address] [id number] [address] [place] [id number] March, [facility] [address] [id number] [address] [place] [id number] Feb, [facility] [address] [id number] [address] [place] [id number] Feb, Other chronic pain G89.29 Via [facility] [address] [place] [id number] Feb, Other chronic pain G89.29 and Anxiety F4 1.9 [facility] [address] [id number] [address] [place] [address] Feb, [facility] [address] [id number] [address] [place] [phone] Jan, [facility] [address] [id number] [address] [place] [phone] Jan, [facility] [address] [id number] [address] [place] [address] Jan, [facility] [address] [id number] [address] [place] [id number] Jan, [facility] [address] [id number] [address] [place] [id number] Dec, Via [facility] [address] [place] [id number] Dec, Peripheral vascular disease I73.9 ; 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9 [facility] [address] [place] [id number] Nov, Status post surgery Z98.890 ; Confused R 41.0 ; Anxiety F41.9 and Other chronic pain G89.29 [facility] [address] [id number] [place] [id number] Nov, Other chronic pain G89.29 [facility] [address] [facility] [id number] [address] [place] [phone] Oct, [facility] [address] [id number] [place] [id number] Oct, Other chronic pain G89.29 [facility] [address] [facility] [id number] [address] [place] [id number] Oct, Anxiety F41.9 [facility] [address] [id number] [place] [id number] Sep, Other chronic pain G89.29 [facility] [address] [id number] [place] [id number] Sep, Via [employer] [address] [place] [id number] Aug, Dysuria R30.0 and Anxiety F41.9 [facility] [address] [id number] [address] [place] [id number] Aug, [facility] [address] [id number] [place] [id number] Aug, Other chronic pain G89.29 [facility] [address] [facility] [id number] [address] [place] [phone] Jul, Other chronic pain G89.29 [facility] [address] [id number] [place] [id number] Jun, [facility] [address] [id number] [place] [id number] Jun, Other chronic pain G89.29 [facility] [address] [id number] [address] [place] [id number] Jun, [facility] [address] [facility] [id number] [address] [place] [id number] May, Other chronic pain G89.29 [facility] [address] [facility] [id number] [address] [place] [phone] Apr, Other chronic pain G89.29 [facility] [address] [place] [id number] Apr, Reactive depression F32.9 and Pharyngeal dysphagia R13.13 [facility] [address] [facility] [id number] [address] [place] [address] Apr, Urinary tract infection with out hematuria, site unspecified N39.0 [facility] [address] [facility] [id number] [address] [place] [address] March, Other chronic pain G89.29 [facility] [address] [facility] [id number] [address] [place] [id number] Feb, Other chronic pain G89.29 [facility] [address] [facility] [id number] [address] [place] [id number] Feb, [facility] [address] [id number] [place] [id number] Feb, [facility] [employer] [address] [place] [id number] Feb, Dysuria R30.0 and Ventral hernia without obstruction or gangrene K43.9 [facility] [address] [id number] [address] [place] [id number] Jan, Other chronic pain G89.29 [facility] [address] [id number] [place] [id number] Dec, Other chronic pain G89.29 [facility] [address] [id number] [address] [place] [id number] Nov, Other chronic pain G89.29 [facility] [address] [place] [id number] Nov, Lymphadenitis I88.9 [facility] [address] [id number] [address] [place] [address] Nov, Other chronic pain G89.29 [facility] [address] [id number] [address] [place] [id number] Nov, [facility] [address] [id number] [place] [id number] Nov, Other chronic pain G89.29 [facility] [address] [place] [id number] Oct, Low back pain M54.5 ; Hypertension I10 a nd Type 2 diabetes mellitus without complication, without long-term current use of insulin E11.9 [facility] [address] [id number] [address] [place] [id number] Oct, [facility] [address] [id number] [address] [place] [phone] Oct, [facility] [address] [id number] [address] [place] [phone] Oct, [facility] [address] [id number] [address] [place] [phone] Oct, [facility] [address] [id number] [address] [place] [phone] Sep, [facility] [address] [id number] [address] [place] [phone] Sep, [facility] [address] [facility] [id number] [address] [place] [id number] Aug, Other chronic pain G89.29 [facility] [address] [id number] [address] [place] [id number] Jul, [facility] [address] [id number] [address] [place] [id number] Jul, [facility] [address] [id number] [address] [place] [id number] Jul, [facility] [address] [id number] [address] [place] [phone] Jun, [facility] [address] [id number] [address] [place] [phone] Jun, [facility] [address] [place] [id number] Jun, Low back pain M54.5 ; Other chronic pain G89.29 and Coronary artery disease I25.10 [facility] [address] [id number] [address] [place] [phone] Jun, [facility] [address] [id number] [address] [place] [phone] May, [facility] [address] [id number] [address] [place] [phone] May, [facility] [address] [id number] [address] [place] [phone] May, Other chronic pain G89.29 [facility] [address] [id number] [address] [place] [phone] May, [facility] [address] [id number] [address] [place] [phone] Apr, [facility] [address] [id number] [address] [place] [phone] 17 Apr, 2016 Acute cystitis without hemat uria N30.00 [facility] [address] [id number] [address] [place] [id number] 16 Apr, 2016 Acute cystitis without hemat uria N30.00 ; Coronary artery disease I25.10 ; Low back pain M54.5 and Other chronic pain G89.29 [facility] [address] [id number] [address] [place] [id number] 13 Apr, 2016 Other chronic pain G89.29 [facility] [address] [id number] [address] [place] [phone] March, Other chronic pain G89.29 [facility] [address] [id number] [address] [place] [id number] 18 Feb, 2016 [facility] [address] [id number] [address] [place] [address] 15 Feb, 2016 Arthritis M19.90 [facility] [address] [id number] [address] [place] [address] Feb, [facility] [address] [id number] [address] [place] [address] 30 Jan, 2016 [facility] [address] [id number] [address] [place] [address] Jan, [facility] [address] [id number] [address] [place] [address] Jan, Other chronic pain G89.29 [facility] [address] [id number] [address] [place] [id number] Jan, Hypertension I10 ; Coronary artery disease I25.10 and Insomnia G47.00 [facility] [address] [facility] [id number] [address] [place] [address] Jan, [facility] [address] [id number] [address] [place] [address] Dec, Right hip pain M25.551 [facility] [address] [id number] [address] [place] [address] Dec, [facility] [address] [facility] [id number] [address] [place] [address] Dec, [facility] [address] [facility] [id number] [address] [place] [address] Dec, [facility] [address] [id number] [address] [place] [address] Dec, Other chronic pain G89.29 [facility] [address] [id number] [address] [place] [address] Dec, [facility] [address] [id number] [address] [place] [address] Nov, [facility] [address] [id number] [address] [place] [address] Nov, Other chronic pain G89.29 [facility] [address] [id number] [address] [place] [address] Nov, Right hip pain M25.551 and C oronary artery disease I25.10 [facility] [address] [id number] [address] [place] [address] Nov, Other chronic pain G89.29 [facility] [address] [id number] [address] [place] [id number] Oct, [facility] [address] [id number] [address] [place] [id number] Oct, [facility] [address] [id number] [address] [place] [id number] Sep, [facility] [address] [id number] [address] [place] [address] Sep, [facility] [address] [id number] [address] [place] [address] Aug, [facility] [address] [id number] [address] [place] [address] Aug, Hypertension I10 ; Coronary artery disease I25.10 and Arthritis M19.90 [facility] [address] [id number] [address] [place] [id number] Jun, [facility] [address] [id number] [address] [place] [id number] Jun, Essential hypertension, jayson gn 401.1 ; Other chronic pain 338.29 and Chronic airway obstruction, not elsewhere classified 496 [facility] [address] [id number] [address] [place] [address], [place] [address] Jun, [facility] [address] [id number] [address] [place] [address], [place] [address] Jun, [facility] [address] [id number] [address] [place] [address], [place] [address] Jun, [facility] [address] [id number] [address] [place] [address], [place] [address] May, [facility] [address] [id number] [address] [place] [address], [place] [address] May, [facility] [address] [id number] [address] [place] [address], [place] [address] Apr, [facility] [address] [id number] [address] [place] [address], [place] [address] Apr, [facility] [address] [id number] [address] [place] [address], [place] [address] Apr, [facility] [address] [id number] [address] [place] [address], [place] [address] March, [facility] [address] [id number] [address] [place] [id number] March, [facility] [address] [id number] [address] [place] [address], [place] [address] March, [facility] [address] [id number] [address] [place] [id number] March, [facility] [address] [id number] [address] [place] [id number] March, Sialadenitis 527.2 [facility] [address] [id number] [address] [place] [id number] Feb, [facility] [address] [id number] [address] [place] [id number] Feb, [facility] [address] [id number] [address] [place] [address], [place] [address] 29 Feb, 2015 [facility] [address] [id number] [address] [place] [address], [place] [address] 14 Feb, 2015 [facility] [address] [id number] [address] [place] [address], [place] [address] Feb, [facility] [address] [id number] [address] [place] [address], [place] [address] Jan, [facility] [address] [id number] [address] [place] [address], [place] [address] Jan, [facility] [address] [id number] [address] [place] [address], [place] [address] Jan, [facility] [address] [id number] [address] [place] [address], [place] [address] Jan, [facility] [address] [id number] [address] [place] [address], [place] [address] Jan, [facility] [address] [id number] [address] [place] [address], [place] [address] Jan, [facility] [address] [id number] [address] [place] [address], [place] [address] Dec, 2014 [facility] [address] [id number] [address] [place] [address], [place] [address] Dec, 2014 [facility] [address] [id number] [address] [place] [address], [place] [address] Dec, 2014 [facility] [address] [id number] [address] [place] [address], [place] [address] Dec, 2014 [facility] [address] [id number] [address] [place] [address], [place] [address] Dec, 2014 [facility] [address] [id number] [address] [place] [address], [place] [address] Dec2014 [facility] [address] [id number] [address] [place] [address], [place] [address] Nov, [facility] [address] [id number] [address] [place] [address], [place] [address] Nov, [facility] [address] [id number] [address] [place] [address], [place] [address] Nov, [facility] [address] [id number] [address] [place] [address], [place] [address] Nov, [facility] [address] [id number] [address] [place] [address], [place] [address] Nov, [facility] [address] [id number] [address] [place] [address], [place] [address] Nov, [facility] [address] [id number] [address] [place] [address], [place] [address] Nov, [facility] [address] [id number] [address] [place] [address], [place] [address] Nov, [facility] [address] [id number] [address] [place] [address], [place] [address] Nov, [facility] [address] [id number] [address] [place] [address], [place] [address] Nov, [facility] [address] [id number] [address] [place] [address], [place] [address] Nov, [facility] [address] [id number] [address] [place] [address], [place] [address] Nov, [facility] [address] [id number] [address] [place] [address], [place] [address] Nov, [facility] [address] [id number] [address] [place] [address], [place] [address] Nov, [facility] [address] [id number] [address] [place] [address], [place] [address] Oct, [facility] [address] [id number] [address] [place] [address], [place] [address] 19 Oct, 2014 [facility] [address] [id number] [address] [place] [address], [place] [address] 19 Oct, 2014 [facility] [address] [id number] [address] [place] [address], [place] [address] 18 Oct, 2014 [facility] [address] [id number] [address] [place] [address], [place] [address] 18 Oct, 2014 [facility] [address] [id number] [address] [place] [address], [place] [address] Oct, [facility] [address] [id number] [address] [place] [address], [place] [address] 17 Oct, 2014 [facility] [address] [id number] [address] [place] [address], [place] [address] Oct, [facility] [address] [id number] [address] [place] [address], [place] [address] Oct, [facility] [address] [id number] [address] [place] [address], [place] [address] Sep, [facility] [address] [id number] [address] [place] [address], [place] [address] Sep, [facility] [address] [id number] [address] [place] [address], [place] [address] Sep, [facility] [address] [id number] [address] [place] [address], [place] [address] Sep, [facility] [address] [id number] [address] [place] [address], [place] [address] Sep, [facility] [address] [id number] [address] [place] [address], [place] [address] Sep, [facility] [address] [id number] [address] [place] [address], [place] [address] Sep, [facility] [address] [id number] [address] [place] [address], [place] [address] Sep, [facility] [address] [id number] [address] [place] [address], [place] [address] Sep, [facility] [address] [id number] [address] [place] [address], [place] [address] Sep, [facility] [address] [id number] [address] [place] [address], [place] [address] Sep, [facility] [address] [id number] [address] [place] [address], [place] [address] Sep, [facility] [address] [id number] [address] [place] [address], [place] [address] Aug, [facility] [address] [id number] [address] [place] [address], [place] [address] Aug, [facility] [address] [id number] [address] [place] [address], [place] [address] Aug, [facility] [address] [id number] [address] [place] [address], [place] [address] Aug, [facility] [address] [id number] [address] [place] [address], [place] [address] Aug, [facility] [address] [id number] [address] [place] [address], [place] [address] Aug, [facility] [address] [id number] [address] [place] [address], [place] [address] Aug, [facility] [address] [id number] [address] [place] [address], [place] [address] Aug, [facility] [address] [id number] [address] [place] [address], [place] [address] 30 Jul, 2014 [facility] [address] [id number] [address] [place] [address], [place] [address] 30 Jul, 2014 [facility] [address] [id number] [address] [place] [address], [place] [address] 30 Jul, 2013 [facility] [address] [id number] [address] [place] [address], [place] [address] 30 Jul, 2014 [facility] [address] [id number] [address] [place] [address], [place] [address] Jul, [facility] [address] [id number] [address] [place] [address], [place] [address] Jul, [facility] [address] [id number] [address] [place] [address], [place] [address] 15 Jul, 2014 [facility] [address] [id number] [address] [place] [address], [place] [address] 15 Jul, 2014 [facility] [address] [id number] [address] [place] [address], [place] [address] Jul, [facility] [address] [id number] [address] [place] [address], [place] [address] Jul, [facility] [address] [id number] [address] [place] [address], [place] [address] Jun, [facility] [address] [id number] [address] [place] [address], [place] [address] Jun, [facility] [address] [id number] [address] [place] [address], [place] [address] Jun, [facility] [address] [id number] [address] [place] [address], [place] [address] Jun, [facility] [address] [id number] [address] [place] [address], [place] [address] Jun, [facility] [address] [id number] [address] [place] [address], [place] [address] Jun, [facility] [address] [id number] [address] [place] [address], [place] [address] Jun, [facility] [address] [id number] [address] [place] [address], [place] [address] Jun, [facility] [address] [id number] [address] [place] [address], [place] [address] Jun, [facility] [address] [id number] [address] [place] [address], [place] [address] Jun, [facility] [address] [id number] [address] [place] [address], [place] [address] Jun, [facility] [address] [id number] [address] [place] [address], [place] [address] Jun, [facility] [address] [id number] [address] [place] [address], [place] [address] Jun, [facility] [address] [id number] [address] [place] [address], [place] [address] Jun, [facility] [address] [id number] [address] [place] [address], [place] [address] Jun, [facility] [address] [id number] [address] [place] [address], [place] [address] Jun, [facility] [address] [id number] [address] [place] [address], [place] [address] Jun, [facility] [address] [id number] [address] [place] [address], [place] [address] Jun, [facility] [address] [id number] [address] [place] [address], [place] [address] Jun, [facility] [address] [id number] [address] [place] [address], [place] [address] Jun, [facility] [address] [id number] [address] [place] [address], [place] [address] Jun, [facility] [address] [id number] [address] [place] [address], [place] [address] Jun, [facility] [address] [id number] [address] [place] [address], [place] [address] May, [facility] [address] [id number] [address] [place] [address], [place] [address] May, [facility] [address] [id number] [address] [place] [address], [place] [address] May, [facility] [address] [id number] [facility] [address] May, 2013 [facility] [address] [id number] [facility] [place] [address] May, [facility] [address] [id number] [facility] [place] [address] May, 2013 [facility] [address] [id number] [facility] [place] [address] May, 2013 [facility] [address] [id number] [facility] [place] [address] May, 2013 [facility] [address] [id number] [facility] [place] [address] May, [facility] [address] [id number] [address] [place] [address], [place] [address] May, [facility] [address] [id number] [address] [place] [address], [place] [address] May, [facility] [address] [id number] [address] [place] [address], [place] [address] May, [facility] [address] [id number] [address] [place] [address], [place] [address] May, [facility] [address] [id number] [address] [place] [address], [place] [address] Apr, [facility] [address] [id number] [address] [place] [address], [place] [address] Apr, [facility] [address] [id number] [address] [place] [address], [place] [address] Apr, [facility] [address] [id number] [address] [place] [address], [place] [address] Apr, [facility] [address] [id number] [address] [place] [address], [place] [address] Apr, [facility] [address] [id number] [address] [place] [address], [place] [address] Apr, [facility] [address] [id number] [address] [place] [address] Apr, [facility] [address] [id number] [facility] [place] [address] Apr, [facility] [address] [id number] [facility] [place] [address] Apr, [facility] [address] [id number] [address] [place] [address], [place] [address] March, [facility] [address] [id number] [address] [place] [address], [place] [address] March, [facility] [address] [id number] [address] [place] [address], [place] [address] March, [facility] [address] [id number] [address] [place] [address], [place] [address] March, [facility] [address] [id number] [address] [place] [address], [place] [address] March, [facility] [address] [id number] [address] [place] [address], [place] [address] March, [facility] [address] [id number] [address] [place] [address], [place] [address] March, [facility] [address] [id number] [address] [place] [address], [place] [address] March, [facility] [address] [id number] [address] [place] [address], [place] [address] March, [facility] [address] [id number] [address] [place] [address], [place] [address] March, [facility] [address] [id number] [address] [place] [address], [place] [address] March, [facility] [address] [id number] [address] [place] [address], [place] [address] March, [facility] [address] [id number] [address] [place] [address], [place] [address] March, [facility] [address] [id number] [address] [place] [address], [place] [address] March, [facility] [address] [id number] [address] [place] [address], [place] [address] March, [facility] [address] [id number] [address] [place] [address], [place] [address] March, [facility] [address] [id number] [address] [place] [address], [place] [address] March, [facility] [address] [id number] [address] [place] [address], [place] [address] March, [facility] [address] [id number] [address] [place] [address], [place] [address] March, [facility] [address] [id number] [address] [place] [address], [place] [address] March, [facility] [address] [id number] [address] [place] [address], [place] [address] Feb, [facility] [address] [id number] [address] [place] [address], [place] [address] Feb, [facility] [address] [id number] [address] [place] [address], [place] [address] Feb, [facility] [address] [id number] [address] [place] [address], [place] [address] Feb, [facility] [address] [id number] [address] [place] [address], [place] [address] Feb, [facility] [address] [id number] [address] [place] [address], [place] [address] Feb, [facility] [address] [id number] [address] [place] [address], [place] [address] Feb, [facility] [address] [id number] [address] [place] [address], [place] [address] Feb, [facility] [address] [id number] [facility] [place] [address] Jan, [facility] [address] [id number] [facility] [place] [address] Jan, [facility] [address] [id number] [facility] [place] [address] Jan, [facility] [address] [id number] [facility] [place] [address] 24 Jan, 2014 [facility] [address] [id number] [address] [place] [address], [place] [address] Jan, [facility] [address] [id number] [address] [place] [address], [place] [address] Jan, [facility] [address] [id number] [address] [place] [address], [place] [address] Jan, [facility] [address] [id number] [address] [place] [address], [place] [address] Jan, [facility] [address] [id number] [address] [place] [address], [place] [address] Jan, [facility] [address] [id number] [address] [place] [address], [place] [address] Jan, [facility] [address] [id number] [address] [place] [address], [place] [address] Dec, [facility] [address] [id number] [address] [place] [address], [place] [address] Dec, [facility] [address] [id number] [address] [place] [address], [place] [address] Dec, [facility] [address] [id number] [address] [place] [address], [place] [address] 2013 [facility] [address] [id number] [address] [place] [address], [place] [address] Dec, [facility] [address] [id number] [address] [place] [address], [place] [address] Dec, [facility] [address] [id number] [address] [place] [address], [place] [address] Dec, [facility] [address] [id number] [address] [place] [address], [place] [address] Dec, [facility] [address] [id number] [address] [place] [address], [place] [address] Nov, [facility] [address] [id number] [address] [place] [address], [place] [address] Nov, [facility] [address] [id number] [address] [place] [address], [place] [address] Nov, [facility] [address] [id number] [address] [place] [address], [place] [address] Nov, [facility] [address] [id number] [address] [place] [address], [place] [address] Nov, [facility] [address] [id number] [address] [place] [address], [place] [address] Nov, [facility] [address] [id number] [address] [place] [address], [place] [address] Nov, [facility] [address] [id number] [address] [place] [address], [place] [address] Nov, [facility] [address] [id number] [address] [place] [address], [place] [address] Nov, [facility] [address] [id number] [address] [place] [address], [place] [address] Nov, [facility] [address] [id number] [address] [place] [address], [place] [address] Nov, [facility] [address] [id number] [address] [place] [address], [place] [address] Nov, [facility] [address] [id number] [address] [place] [address], [place] [address] Nov, [facility] [address] [id number] [address] [place] [address], [place] [address] 30 Oct, 2013 [facility] [address] [id number] [address] [place] [address], [place] [address] Oct, [facility] [address] [id number] [address] [place] [address], [place] [address] Oct, [facility] [address] [id number] [address] [place] [address], [place] [address] Oct, [facility] [address] [id number] [address] [place] [address], [place] [address] Oct, [facility] [address] [id number] [address] [place] [address], [place] [address] Oct, [facility] [address] [id number] [address] [place] [address], [place] [address] Oct, [facility] [address] [id number] [address] [place] [address], [place] [address] Oct, [facility] [address] [id number] [address] [place] [address], [place] [address] Oct, [facility] [address] [id number] [address] [place] [address], [place] [address] Oct, [facility] [address] [id number] [address] [place] [address], [place] [address] Oct, [facility] [address] [id number] [address] [place] [address], [place] [address] Oct, [facility] [address] [id number] [address] [place] [address], [place] [address] Oct, [facility] [address] [id number] [address] [place] [address], [place] [address] Oct, [facility] [address] [id number] [address] [place] [address], [place] [address] 14 Sep, 2013 [facility] [address] [id number] [address] [place] [address], [place] [address] Sep, [facility] [address] [id number] [address] [place] [address], [place] [address] Sep, [facility] [address] [id number] [address] [place] [address] Sep, [facility] [address] [id number] [address] [place] [address] Sep, [facility] [address] [id number] [address] [place] [address] Sep, [facility] [address] [id number] [address] [place] [address], [place] [address] Sep, [facility] [address] [id number] [address] [place] [address] Sep, [facility] [address] [id number] [address] [place] [address] Sep, [facility] [address] [id number] [address] [place] [address] Sep, [facility] [address] [id number] [address] [place] [address] Aug, [facility] [address] [id number] [address] [place] [address] Aug, [facility] [address] [id number] [address] [place] [address] Aug, [facility] [address] [id number] [address] [place] [address] Aug, [facility] [address] [id number] [address] [place] [address], [place] [address] Aug, [facility] [address] [id number] [address] [place] [address] Aug, [facility] [address] [id number] [address] [place] [address] Aug, [facility] [address] [id number] [address] [place] [address], [place] [address] 23 Aug, 2012 [facility] [address] [id number] [address] [place] [address], [place] [address] 22 Aug, 2012 [facility] [address] [id number] [address] [place] [address], [place] [address] 22 Aug, 2012 [facility] [address] [id number] [address] [place] [address], [place] [address] 18 Aug, 2012 [facility] [address] [id number] [address] [place] [address], [place] [address] 18 Aug, 2012 [facility] [address] [id number] [address] [place] [address], [place] [address] 18 Aug, 2013 [facility] [address] [id number] [address] [place] [address], [place] [address] 18 Aug, 2013 [facility] [address] [id number] [address] [place] [address], [place] [address] 17 Aug, 2012 [facility] [address] [id number] [address] [place] [address], [place] [address] 14 Aug, 2013 [facility] [address] [id number] [address] [place] [address], [place] [address] 14 Aug, 2013 [facility] [address] [id number] [address] [place] [address], [place] [address] 01 Aug, 2013 [facility] [address] [id number] [address] [place] [address], [place] [address] 20 Jul, 2012 [facility] [address] [id number] [address] [place] [address], [place] [address] 19 Sep, 2012 [facility] [address] [id number] [address] [place] [address], [place] [address] 18 Sep, 2012 [facility] [address] [id number] [address] [place] [address], [place] [address] 11 Jul, 2012 [facility] [address] [id number] [address] [place] [address], [place] [address] Jul, [facility] [address] [id number] [address] [place] [address], [place] [address] Jun, [facility] [address] [id number] [address] [place] [address], [place] [address] Jun, [facility] [address] [id number] [address] [place] [address], [place] [address] Jun, [facility] [address] [id number] [address] [place] [address], [place] [address] Jun, [facility] [address] [id number] [address] [place] [address], [place] [address] Jun, [facility] [address] [id number] [address] [place] [address], [place] [address] Jun, [facility] [address] [id number] [address] [place] [address], [place] [address] Jun, [facility] [address] [id number] [address] [place] [address], [place] [address] Jun, [facility] [address] [id number] [address] [place] [address], [place] [address] Jun, [facility] [address] [id number] [address] [place] [address], [place] [address] Jun, [facility] [address] [id number] [address] [place] [address], [place] [address] May, [facility] [address] [id number] [address] [place] [address], [place] [address] May, [facility] [address] [id number] [address] [place] [address], [place] [address] May, [facility] [address] [id number] [address] [place] [address], [place] [address] May, [facility] [address] [id number] [address] [place] [address], [place] [address] May, [facility] [address] [id number] [address] [place] [address], [place] [address] 16 May, 2013 [facility] [address] [id number] [address] [place] [address], [place] [address] May, [facility] [address] [id number] [address] [place] [address], [place] [address] May, [facility] [address] [id number] [address] [place] [address], [place] [address] May, [facility] [address] [id number] [address] [place] [address], [place] [address] Apr, [facility] [address] [id number] [address] [place] [address], [place] [address] Apr, [facility] [address] [id number] [address] [place] [address], [place] [address] Apr, [facility] [address] [id number] [address] [place] [address], [place] [address] Apr, [facility] [address] [id number] [address] [place] [address], [place] [address] Apr, [facility] [address] [id number] [address] [place] [address], [place] [address] Apr, [facility] [address] [id number] [address] [place] [address], [place] [address] Apr, [facility] [address] [id number] [address] [place] [address], [place] [address] March, [facility] [address] [id number] [address] [place] [address], [place] [address] Feb, [facility] [address] [id number] [address] [place] [address], [place] [address] Feb, [facility] [address] [id number] [address] [place] [address], [place] [address] Feb, [facility] [address] [id number] [address] [place] [address], [place] [address] Jan, [facility] [address] [id number] [address] [place] [address], [place] [address] 21 Jan, 2013 [facility] [address] [id number] [address] [place] [address], [place] [address] 19 Jan, 2013 [facility] [address] [id number] [address] [place] [address], [place] [address] 14 Jan, 2013 [facility] [address] [id number] [address] [place] [address], [place] [address] 12 Jan, 2013 [facility] [address] [id number] [address] [place] [address], [place] [address] 08 Jan, 2013 [facility] [address] [id number] [address] [place] [address], [place] [address] 07 Jan, 2013 [facility] [address] [id number] [address] [place] [address], [place] [address] 04 Jan, 2013 [facility] [address] [id number] [address] [place] [address], [place] [address] 28 Dec, 2012 [facility] [address] [id number] [address] [place] [address], [place] [address] 25 Dec, 2012 [facility] [address] [id number] [address] [place] [address], [place] [address] 13 Dec, 2012 [facility] [address] [id number] [address] [place] [address], [place] [address] 11 Dec, 2012 [facility] [address] [id number] [address] [place] [address], [place] [address] 07 Dec, 2012 [facility] [address] [id number] [address] [place] [address], [place] [address] 06 Dec, 2012 [facility] [address] [id number] [address] [place] [address], [place] [address] 05 Dec, 2012 [facility] [address] [id number] [address] [place] [address], [place] [address] Nov, [facility] [address] [id number] [address] [place] [address], [place] [address] Nov, [facility] [address] [id number] [address] [place] [address], [place] [address] 18 Nov, 2012 [facility] [address] [id number] [address] [place] [address], [place] [address] 15 Nov, 2012 [facility] [address] [id number] [address] [place] [address], [place] [address] Nov, [facility] [address] [id number] [address] [place] [address], [place] [address] Nov, [facility] [address] [id number] [address] [place] [address], [place] [address] Nov, [facility] [address] [id number] [address] [place] [address], [place] [address] Oct, [facility] [address] [id number] [address] [place] [address], [place] [address] Oct, [facility] [address] [id number] [address] [place] [address], [place] [address] Oct, [facility] [address] [id number] [address] [place] [address], [place] [address] Oct, [facility] [address] [id number] [address] [place] [address], [place] [address] Oct, [facility] [address] [id number] [address] [place] [address], [place] [address] Oct, [facility] [address] [id number] [address] [place] [address], [place] [address] Oct, [facility] [address] [id number] [address] [place] [address], [place] [address] Oct, [facility] [address] [id number] [address] [place] [address], [place] [address] 05 Oct, 2012 [facility] [address] [id number] [address] [place] [address], [place] [address] 05 Oct, 2012 [facility] [address] [id number] [address] [place] [address], [place] [address] Oct, [facility] [address] [id number] [address] [place] [address], [place] [address] Oct, [facility] [address] [id number] [address] [place] [address], [place] [address] Sep, [facility] [address] [id number] [address] [place] [address], [place] [address] Sep, [facility] [address] [id number] [address] [place] [address], [place] [address] Sep, [facility] [address] [id number] [address] [place] [address], [place] [address] Sep, [facility] [address] [id number] [address] [place] [address], [place] [address] Sep, [facility] [address] [id number] [address] [place] [address], [place] [address] Sep, [facility] [address] [id number] [address] [place] [address], [place] [address] Sep, [facility] [address] [id number] [address] [place] [address], [place] [address] Sep, [facility] [address] [id number] [address] [place] [address], [place] [address] Sep, [facility] [address] [id number] [address] [place] [address], [place] [address] Sep, [facility] [address] [id number] [address] [place] [address], [place] [address] Sep, [facility] [address] [id number] [address] [place] [address], [place] [address] Aug, [facility] [address] [id number] [address] [place] [address], [place] [address] Aug, [facility] [address] [id number] [address] [place] [address], [place] [address] Aug, [facility] [address] [id number] [address] [place] [address], [place] [address] Aug, [facility] [address] [id number] [address] [place] [address], [place] [address] Aug, [facility] [address] [id number] [address] [place] [address], [place] [address] Aug, [facility] [address] [id number] [address] [place] [address], [place] [address] Aug, [facility] [address] [id number] [address] [place] [address], [place] [address] Aug, [facility] [address] [id number] [address] [place] [address], [place] [address] Aug, [facility] [address] [id number] [address] [place] [address], [place] [address] Aug, [facility] [address] [id number] [address] [place] [address], [place] [address] Jul, [facility] [address] [id number] [address] [place] [address], [place] [address] 20 Jul, 2012 [facility] [address] [id number] [address] [place] [address], [place] [address] 10 Jul, 2012 [facility] [address] [id number] [address] [place] [address], [place] [address] 06 Jul, 2012 [facility] [address] [id number] [address] [place] [address], [place] [address] 30 Jun, 2012 [facility] [address] [id number] [address] [place] [address], [place] [address] Jun, [facility] [address] [id number] [address] [place] [address], [place] [address] 16 Jun, 2012 [facility] [address] [id number] [address] [place] [address], [place] [address] Jun, [facility] [address] [id number] [address] [place] [address] [place] [address] Jun, [facility] [address] [id number] [address] [place] [address], [place] [address] Jun, [facility] [address] [id number] [address] [place] [address], [place] [address] Jun, [facility] [address] [id number] [address] [place] [address], [place] [address] May, [facility] [address] [id number] [address] [place] [address], [place] [address] May, [facility] [address] [id number] [address] [place] [address], [place] [address] May, [facility] [address] [id number] [address] [place] [address], [place] [address] May, [facility] [address] [id number] [address] [place] [address], [place] [address] May, [facility] [address] [id number] [address] [place] [address], [place] [address] Apr, [facility] [address] [id number] [address] [place] [address], [place] [address] Apr, [facility] [address] [id number] [address] [place] [address], [place] [address] Apr, [facility] [address] [id number] [address] [place] [address], [place] [address] Apr, [facility] [address] [id number] [address] [place] [address], [place] [address] Apr, [facility] [address] [id number] [address] [place] [address], [place] [address] March, [facility] [address] [id number] [address] [place] [address], [place] [address] March, [facility] [address] [id number] [address] [place] [address], [place] [address] March, [facility] [address] [id number] [address] [place] [address], [place] [address] March, [facility] [address] [id number] [address] [place] [address], [place] [address] March, [facility] [address] [id number] [address] [place] [address], [place] [address] March, [facility] [address] [id number] [address] [place] [address], [place] [address] March, [facility] [address] [id number] [address] [place] [address], [place] [address] March, [facility] [address] [id number] [address] [place] [address], [place] [address] March, [facility] [address] [id number] [address] [place] [address], [place] [address] March, [facility] [address] [id number] [address] [place] [address], [place] [address] 30 Feb, 2012 [facility] [address] [id number] [address] [place] [address], [place] [address] Feb, [facility] [address] [id number] [address] [place] [address], [place] [address] Feb, [facility] [address] [id number] [address] [place] [address], [place] [address] Feb, [facility] [address] [id number] [address] [place] [address], [place] [address] 17 Feb, 2012 [facility] [address] [id number] [address] [place] [address], [place] [address] Feb, [facility] [address] [id number] [address] [place] [address], [place] [address] Feb, [facility] [address] [id number] [address] [place] [address], [place] [address] Feb, [facility] [address] [id number] [address] [place] [address], [place] [address] Feb, [facility] [address] [id number] [address] [place] [address], [place] [address] Jan, [facility] [address] [id number] [address] [place] [address], [place] [address] Jan, [facility] [address] [id number] [address] [place] [address], [place] [address] Jan, [facility] [address] [id number] [address] [place] [address], [place] [address] Jan, [facility] [address] [id number] [address] [place] [address], [place] [address] Dec, [facility] [address] [id number] [address] [place] [address], [place] [address] Dec, [facility] [address] [id number] [address] [place] [address], [place] [address] Nov, [facility] [address] [id number] [address] [place] [address], [place] [address] Nov, [facility] [address] [id number] [address] [place] [address], [place] [address] Nov, [facility] [address] [id number] [address] [place] [address], [place] [address] Nov, [facility] [address] [id number] [address] [place] [address], [place] [address] Nov, [facility] [address] [id number] [address] [place] [address], [place] [address] Oct, [facility] [address] [id number] [address] [place] [address], [place] [address] Oct, [facility] [address] [id number] [address] [place] [address], [place] [address] Oct, [facility] [address] [id number] [address] [place] [address], [place] [address] Oct, [facility] [address] [id number] [address] [place] [id number] Oct, [facility] [address] [facility] [id number] [address] [place] [id number] Oct, [facility] [address] [facility] [id number] [address] [place] [id number] Oct, [facility] [address] [facility] [id number] [address] [place] [id number] Oct, [facility] [address] [facility] [id number] [address] [place] [id number] Sep, IMMUNIZATIONS No Known Immunizations SOCIAL HISTORY [...] History No Surgical history information Hospitalization History [facility]- Urosepsis, ab d pain and fever, discharged 11/27/2017 11/26/2017 Hospitalization History [facility] [place]- Went Unrepsonsive, Hit head 2017 Hospitalization History [facility] [place]- Back Pain 8
--- OUTSIDE RECORDS SUMMARY | 2020-06-18 14:48 | XMS REPORT ---
Author Author Sanjuanita Abdul Doctor Organization [facility] Address Unknown Phone Unavailable Care Team Providers Care Sales Planning Manager Name Role Phone Migration, Doctor Unavailable Unavailable PROBLEMS Type Condition ICD9-CM Code AIB90-VG Code Onset Dates Condition S tatus SNOMED Code Problem Hypertension I10 Active 0549227 3 Problem Hyperlipidemia E78.5 Active 72966 004 Problem Coronary artery disease I25.10 Active 76579503 Problem Low back pain M54.5 Active 510810 009 Problem Other chronic pain G89.29 Active 8 2936377 Problem Ventral hernia without obstruction or gangrene K43 .9 Active 999932496 Problem Type 2 diabetes mellitus wit hout complication, without long-term current use of insulin E11.9 Active 886309947 Problem Anxiety F41.9 Active 57403137 Problem Peripheral vascular disease I73.9 Ac tive 649758731 Problem Insomnia G47.00 Active 553824546 Problem Microcytic anemia D50.9 Active 23 1291475 Problem Pharyngeal dysphagia R13.13 Active 47601582415045 Problem Other iron deficiency anemia D50.8 A ctive 12143424 Problem Reactive depression F32.9 Active 60036410 Problem Paroxysmal atrial fibrillation I48.0 Active 284073559 Problem 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 Active 92759294 Problem Encounter for suprapubic catheter care Z43.5 Active 183247613 Problem Neurogenic bladder N31.9 Active 3 [id number] ALLERGIES No Information ENCOUNTERS Encounter Location Date Diagnosis [facility] [address] [facility] [id number] [address] [place] [id number] Jan, Anxiety F41.9 and Strain of right shoulder, subsequent encounter S46.911D [facility] [address] [facility] [id number] [address] [place] [phone] Jan, [facility] [address] [facility] [address] [place] [id number] Jan, Neurogenic bladder N31.9 [facility] [address] [facility] [id number] [address] [place] [phone] Dec, [place] [address] [id number] [address] [place] [address] Dec, [place] [address] [id number] [address] [place] [phone] Dec, Anxiety F41.9 and Strain of right shoulder, subsequent encounter S46.911D [place] [address] [id number] [address] [place] [phone] 10 Dec, 2019 Other iron deficiency anemia D50.8 [place] [address] [id number] [address] [place] [phone] 04 Dec, 2019 Via [facility] [address] [place] [id number] Dec, Encounter for suprapubic catheter care Z 43.5 and Microcytic anemia D50.9 [place] [address] [id number] [address] [place] [address] Dec, [place] [address] [id number] [address] [place] [phone] Nov, Anxiety F41.9 and Strain of right shoulder, subsequent encounter S46.911D [place] [address] [id number] [address] [place] [phone] Nov, Hypertension I10 [facility] [employer] [address] [place] [id number] Nov, Pneumonia of both lungs due to infectiou s organism, unspecified part of lung J18.9 and Suprapubic catheter Z93.59 [place] [address] [id number] [address] [place] [address] Nov, Hypertension I10 and Reactiv e depression F32.9 [place] [address] [id number] [address] [place] [phone] Oct, Strain of right shoulder, scherer bsequent encounter S46.911D and Anxiety F41.9 [facility] [address] [id number] [address] [place] [phone] 16 Oct, 2019 Via [employer] [address] [place] [id number] Oct, Suprapubic catheter Z93.59 and Candidias is, intertriginous B37.2 [facility] [address] [id number] [address] [place] [address] Oct, Suprapubic catheter Z93.59 [facility] [address] [id number] [address] [place] [phone] Oct, Anxiety F41.9 and Strain of right shoulder, subsequent encounter S46.911D [facility] [address] [id number] [address] [place] [phone] Sep, [facility] [address] [id number] [address] [place] [phone] Sep, [facility] [address] [id number] [address] [place] [address] Sep, Via [employer] [address] [place] [address] Sep, Suprapubic catheter Z93.59 [facility] [address] [id number] [address] [place] [address] Sep, Anxiety F41.9 and Strain of right shoulder, subsequent encounter S46.911D [facility] [address] [id number] [address] [place] [phone] Aug, [facility] [address] [id number] [address] [place] [address] Aug, [facility] [address] [id number] [address] [place] [phone] Aug, Anxiety F41.9 and Strain of right shoulder, subsequent encounter S46.911D [facility] [employer] [address] [place] [id number] Aug, Suprapubic catheter Z93.59 [facility] [address] [id number] [address] [place] [address] Jul, Strain of right shoulder, scherer bsequent encounter S46.911D and Anxiety F41.9 [facility] [address] [id number] [address] [place] [address] Jul, Anxiety F41.9 [place] [address] [id number] [address] [place] [address] Jun, [place] [address] [id number] [address] [place] [phone] Jun, [place] [address] [id number] [address] [place] [address] Jun, [place] [address] [id number] [address] [place] [address] Jun, Strain of right shoulder, scherer bsequent encounter S46.911D [place] [address] [id number] [address] [place] [address] Jun, Strain of right shoulder, scherer bsequent encounter S46.911D [place] [address] [id number] [address] [place] [phone] Jun, Anxiety F41.9 [facility] [address] [place] [id number] Jun, Neurogenic bladder N31.9 and Anxiety F41 .9 [facility] [address] [place] [address] May, Anxiety F41.9 [place] [address] [id number] [address] [place] [address] May, Dysuria R30.0 [place] [address] [id number] [address] [place] [address] May, Strain of right shoulder, scherer bsequent encounter S46.911D and Anxiety F41.9 [place] [address] [id number] [address] [place] [phone] 27 Apr, 2019 Via [facility] [employer] [address] [place] [id number] 18 Apr, 2019 Strain of right shoulder, subsequent enc ounter S46.911D [facility] [address] [id number] [address] [place] [phone] 14 Apr, 2019 Strain of right shoulder, scherer bsequent encounter S46.911D and Anxiety F41.9 [facility] [employer] [address] [place] [address] Apr, Type 2 diabetes mellitus without complic ation, without long-term current use of insulin E11.9 and Neurogenic bladder N31.9 [facility] [employer] [address] [place] [address] Apr, Strain of right shoulder, subsequent enc ounter S46.911D ; History of GI bleed Z87.19 ; Neurogenic bladder N31.9 and Reactive depression F32.9 [place] [address] [id number] [address] [place] [address] Apr, Acute pain of left shoulder M25.512 [place] [address] [id number] [address] [place] [address] Apr, [place] [address] [id number] [address] [place] [address] Apr, Anxiety F41.9 and 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 Via [facility] [address] [place] [address] March, Gastrointestinal hemorrhage associated w ith acute gastritis K29.01 [place] [address] [id number] [address] [place] [address] March, Via [facility] [employer] [address] [place] [address] March, Bronchitis J40 [place] [address] [id number] [address] [place] [phone] March, Cough R05 [place] [address] [id number] [address] [place] [address] March, Other chronic pain G89.29 [facility] [address] [id number] [address] [place] [address] March, Anxiety F41.9 [facility] [address] [id number] [address] [place] [address] March, [facility] [address] [id number] [address] [place] [address] Feb, Other chronic pain G89.29 [facility] [address] [id number] [address] [place] [address] Feb, Anxiety F41.9 [facility] [address] [id number] [address] [place] [address] Feb, Other chronic pain G89.29 [facility] [address] [place] [id number] Feb, Neurogenic bladder N31.9 and Suprapubic catheter Z93.59 [facility] [address] [id number] [address] [place] [address] Jan, Anxiety F41.9 [facility] [address] [id number] [address] [place] [address] Dec, Anxiety F41.9 [facility] [address] [id number] [address] [place] [address] Dec, Other chronic pain G89.29 an d Anxiety F41.9 [facility] [address] [id number] [address] [place] [address] Dec, Via [employer] [address] [place] [address] Dec, Neurogenic bladder N31.9 and Suprapubic catheter Z93.59 [facility] [address] [id number] [address] [place] [address] Nov, Other chronic pain G89.29 an d Anxiety F41.9 [facility] [address] [id number] [address] [place] [address] Nov, Via [employer] [address] [place] [address] Nov, Suprapubic catheter Z93.59 [facility] [address] [id number] [address] [place] [address] Oct, Other chronic pain G89.29 an d Anxiety F41.9 [facility] [address] [id number] [address] [place] [address] Oct, [facility] [address] [id number] [address] [place] [address] Oct, Suprapubic catheter Z93.59 [facility] [address] [id number] [address] [place] [phone] Oct, Via [facility] [address] [place] [address] Oct, [facility] [address] [id number] [address] [place] [phone] Oct, Anxiety F41.9 [facility] [address] [id number] [address] [place] [phone] Oct, Anxiety F41.9 [facility] [address] [place] [address] Oct, Other chronic pain G89.29 [facility] [address] [id number] [address] [place] [address] Sep, Other chronic pain G89.29 Via [facility] [address] [place] [address] Sep, Suprapubic catheter Z93.59 and Cervicalg ia M54.2 [facility] [address] [id number] [address] [place] [address] Sep, [facility] [address] [id number] [address] [place] [address] Sep, [facility] [address] [id number] [address] [place] [address] Sep, Via [employer] [address] [place] [address] Aug, Cystitis N30.90 [facility] [address] [id number] [address] [place] [address] Aug, [facility] [address] [id number] [address] [place] [phone] Aug, Other chronic pain G89.29 [facility] [address] [id number] [address] [place] [address] Aug, Via [employer] [address] [place] [address] Aug, Encounter for suprapubic catheter care Z 43.5 [facility] [address] [id number] [address] [place] [address] Jul, Via [employer] [address] [place] [address] Jul, [facility] [address] [id number] [address] [place] [phone] Jul, Other chronic pain G89.29 [facility] [address] [id number] [address] [place] [address] Jul, [facility] [address] [id number] [address] [place] [phone] Jul, Via [employer] [address] [place] [address] Jun, 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 [facility] [address] [id number] [address] [place] [address] Jun, Other chronic pain G89.29 [facility] [address] [id number] [address] [place] [phone] Jun, Via [employer] [address] [place] [address] May, Anxiety F41.9 ; Type 2 diabetes mellitus without complication, without long-term current use of insulin E11.9 ; Hypertension I10 ; Low back pain M54.5 ; Paroxysmal atrial fibrillation I48.0 and 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 [facility] [address] [id number] [address] [place] [address] May, Other chronic pain G89.29 Via [facility] [facility] [address] [place] [id number] May, Low back pain M54.5 [facility] [address] [id number] [address] [place] [address] May, [facility] [address] [id number] [address] [place] [address] Apr, Other chronic pain G89.29 [facility] [address] [id number] [address] [place] [address] Apr, [facility] [address] [id number] [address] [place] [address] Apr, Via [employer] [address] [place] [id number] Apr, Closed compression fracture of L3 lumbar vertebra with routine healing, subsequent encounter S32.030D [facility] [employer] [address] [place] [address] Apr, Low back pain M54.5 Via [facility] [employer] [address] [place] [address] Apr, Coccydynia M53.3 [facility] [address] [id number] [address] [place] [address] March, [facility] [address] [id number] [address] [place] [address] March, Other chronic pain G89.29 [facility] [address] [id number] [address] [place] [address] March, [facility] [address] [id number] [address] [place] [id number] March, [facility] [address] [id number] [address] [place] [address] Feb, [facility] [address] [id number] [address] [place] [address] Feb, Other chronic pain G89.29 Via [facility] [address] [place] [id number] Feb, Other chronic pain G89.29 and Anxiety F4 1.9 [facility] [address] [id number] [address] [place] [address] Feb, [facility] [address] [id number] [address] [place] [id number] Jan, [facility] [address] [id number] [address] [place] [address] Jan, [facility] [address] [id number] [address] [place] [address] Jan, [facility] [address] [id number] [address] [place] [address] Jan, [facility] [address] [id number] [address] [place] [address] Dec, Via [facility] [address] [place] [address] Dec, Peripheral vascular disease I73.9 ; 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 ; Other chronic pain G89.29 ; Anxiety F41.9 ; Reactive depression F32.9 ; Insomnia G47.00 and Type 2 diabetes mellitus without complication, without long-term current use of insulin E11.9 [facility] [place] [id number] [address] Nov, [facility] [address] [id number] [place] [id number] Nov, Anxiety F41.9 [facility] [address] [id number] [address] [place] [address] Nov, [facility] [address] [id number] [place] [address] Nov, Anxiety F41.9 [facility] [address] [place] [address] Nov, Status post surgery Z98.890 ; Confused R 41.0 ; Anxiety F41.9 and Other chronic pain G89.29 [facility] [address] [id number] [place] [address] Nov, Other chronic pain G89.29 [facility] [address] [facility] [id number] [address] [place] [address] Oct, [facility] [address] [id number] [place] [address] Oct, Other chronic pain G89.29 [facility] [address] [facility] [id number] [address] [place] [address] Oct, Anxiety F41.9 [facility] [address] [id number] [place] [address] Sep, Other chronic pain G89.29 [facility] [address] [id number] [place] [address] Sep, Via [employer] [address] [place] [address] Aug, Dysuria R30.0 and Anxiety F41.9 [facility] [address] [id number] [address] [place] [address] Aug, [facility] [address] [id number] [place] [address] Aug, Other chronic pain G89.29 [facility] [address] [facility] [id number] [address] [place] [address] Jul, Other chronic pain G89.29 [facility] [address] [id number] [place] [id number] Jun, [facility] [address] [id number] [place] [address] Jun, Other chronic pain G89.29 [facility] [address] [id number] [address] [place] [address] Jun, [facility] [address] [facility] [id number] [address] [place] [address] May, Other chronic pain G89.29 [facility] [address] [facility] [id number] [address] [place] [address] Apr, Other chronic pain G89.29 Via [facility] [address] [place] [address] Apr, Reactive depression F32.9 and Pharyngeal dysphagia R13.13 [facility] [address] [facility] [id number] [address] [place] [address] Apr, Urinary tract infection with out hematuria, site unspecified N39.0 [facility] [address] [facility] [id number] [address] [place] [address] March, Other chronic pain G89.29 [facility] [address] [facility] [id number] [address] [place] [address] Feb, Other chronic pain G89.29 [facility] [address] [facility] [id number] [address] [place] [address] Feb, [facility] [address] [id number] [place] [id number] Feb, Via [employer] [address] [place] [address] Feb, Dysuria R30.0 and Ventral hernia without obstruction or gangrene K43.9 [facility] [address] [id number] [address] [place] [address] Jan, Other chronic pain G89.29 [facility] [address] [id number] [place] [address] Dec, Other chronic pain G89.29 [facility] [address] [id number] [address] [place] [address] Nov, Other chronic pain G89.29 [facility] [address] [place] [address] Nov, Lymphadenitis I88.9 [facility] [address] [id number] [address] [place] [address] Nov, Other chronic pain G89.29 [facility] [address] [id number] [address] [place] [phone] Nov, [facility] [address] [id number] [place] [id number] Nov, Other chronic pain G89.29 [facility] [address] [place] [address] Oct, Low back pain M54.5 ; Hypertension I10 a nd Type 2 diabetes mellitus without complication, without long-term current use of insulin E11.9 [facility] [address] [id number] [address] [place] [id number] Oct, [facility] [address] [id number] [address] [place] [phone] Oct, [facility] [address] [id number] [address] [place] [address] Oct, [facility] [address] [id number] [address] [place] [phone] Oct, [facility] [address] [id number] [address] [place] [phone] Sep, [facility] [address] [id number] [address] [place] [phone] Sep, [facility] [address] [facility] [id number] [address] [place] [address] Aug, Other chronic pain G89.29 [facility] [address] [id number] [address] [place] [id number] Jul, [facility] [address] [id number] [address] [place] [phone] Jul, [facility] [address] [id number] [address] [place] [phone] Jul, [facility] [address] [id number] [address] [place] [phone] Jun, [facility] [address] [id number] [address] [place] [phone] Jun, [facility] [address] [place] [id number] Jun, Low back pain M54.5 ; Other chronic pain G89.29 and Coronary artery disease I25.10 [facility] [address] [id number] [address] [place] [phone] Jun, [facility] [address] [id number] [address] [place] [phone] May, [facility] [address] [id number] [address] [place] [phone] May, [facility] [address] [id number] [address] [place] [phone] May, Other chronic pain G89.29 [facility] [address] [id number] [address] [place] [phone] May, [facility] [address] [id number] [address] [place] [phone] Apr, [facility] [address] [id number] [address] [place] [id number] 17 Apr, 2016 Acute cystitis without hemat uria N30.00 [facility] [address] [id number] [address] [place] [phone] 16 Apr, 2016 Acute cystitis without hemat uria N30.00 ; Coronary artery disease I25.10 ; Low back pain M54.5 and Other chronic pain G89.29 [facility] [address] [id number] [address] [place] [phone] 13 Apr, 2016 Other chronic pain G89.29 [facility] [address] [id number] [address] [place] [id number] March, Other chronic pain G89.29 [facility] [address] [id number] [address] [place] [phone] 18 Feb, 2016 [facility] [address] [id number] [address] [place] [id number] 15 Feb, 2016 Arthritis M19.90 [facility] [address] [id number] [address] [place] [id number] Feb, [facility] [address] [id number] [address] [place] [id number] 30 Jan, 2016 [facility] [address] [id number] [address] [place] [id number] Jan, [facility] [address] [id number] [address] [place] [id number] Jan, Other chronic pain G89.29 [facility] [address] [id number] [address] [place] [id number] Jan, Hypertension I10 ; Coronary artery disease I25.10 and Insomnia G47.00 [facility] [address] [facility] [id number] [address] [place] [id number] Jan, [facility] [address] [id number] [address] [place] [id number] Dec, Right hip pain M25.551 [facility] [address] [id number] [address] [place] [phone] Dec, [facility] [address] [facility] [id number] [address] [place] [id number] Dec, [facility] [address] [facility] [id number] [address] [place] [phone] Dec, [facility] [address] [id number] [address] [place] [id number] Dec, Other chronic pain G89.29 [facility] [address] [id number] [address] [place] [phone] Dec, [facility] [address] [id number] [address] [place] [phone] Nov, [facility] [address] [id number] [address] [place] [id number] Nov, Other chronic pain G89.29 [facility] [address] [id number] [address] [place] [id number] Nov, Right hip pain M25.551 and C oronary artery disease I25.10 [facility] [address] [id number] [address] [place] [phone] Nov, Other chronic pain G89.29 [facility] [address] [id number] [address] [place] [id number] Oct, [facility] [address] [id number] [address] [place] [phone] Oct, [facility] [address] [id number] [address] [place] [phone] Sep, [facility] [address] [id number] [address] [place] [phone] Sep, [facility] [address] [id number] [address] [place] [id number] Aug, [facility] [address] [id number] [address] [place] [id number] Aug, Hypertension I10 ; Coronary artery disease I25.10 and Arthritis M19.90 [facility] [address] [id number] [address] [place] [phone] Jun, [facility] [address] [id number] [address] [place] [id number] Jun, Essential hypertension, jayson gn 401.1 ; Other chronic pain 338.29 and Chronic airway obstruction, not elsewhere classified 496 [facility] [address] [id number] [address] [place] [address], [place] [address] Jun, [facility] [address] [id number] [address] [place] [address], [place] [address] Jun, [facility] [address] [id number] [address] [place] [address], [place] [address] Jun, [facility] [address] [id number] [address] [place] [address], [place] [address] May, [facility] [address] [id number] [address] [place] [address], [place] [address] May, [facility] [address] [id number] [address] [place] [address], [place] [address] Apr, [facility] [address] [id number] [address] [place] [address], [place] [address] Apr, [facility] [address] [id number] [address] [place] [address], [place] [address] Apr, [facility] [address] [id number] [address] [place] [address], [place] [address] March, [facility] [address] [id number] [address] [place] [id number] March, [facility] [address] [id number] [address] [place] [address], [place] [address] March, [facility] [address] [id number] [address] [place] [phone] March, [facility] [address] [id number] [address] [place] [id number] March, Sialadenitis 527.2 [facility] [address] [id number] [address] [place] [id number] Feb, [facility] [address] [id number] [address] [place] [phone] Feb, [facility] [address] [id number] [address] [place] [address], [place] [address] 29 Feb, 2015 [facility] [address] [id number] [address] [place] [address], [place] [address] 14 Feb, 2015 [facility] [address] [id number] [address] [place] [address], [place] [address] Feb, [facility] [address] [id number] [address] [place] [address], [place] [address] Jan, [facility] [address] [id number] [address] [place] [address], [place] [address] Jan, [facility] [address] [id number] [address] [place] [address], [place] [address] Jan, [facility] [address] [id number] [address] [place] [address], [place] [address] Jan, [facility] [address] [id number] [address] [place] [address], [place] [address] Jan, [facility] [address] [id number] [address] [place] [address], [place] [address] Jan, [facility] [address] [id number] [address] [place] [address], [place] [address] Dec, 2014 [facility] [address] [id number] [address] [place] [address], [place] [address] Dec, 2014 [facility] [address] [id number] [address] [place] [address], [place] [address] Dec, 2014 [facility] [address] [id number] [address] [place] [address], [place] [address] Dec, 2014 [facility] [address] [id number] [address] [place] [address], [place] [address] Dec, 2014 [facility] [address] [id number] [address] [place] [address], [place] [address] Dec2014 [facility] [address] [id number] [address] [place] [address], [place] [address] Nov, [facility] [address] [id number] [address] [place] [address], [place] [address] Nov, [facility] [address] [id number] [address] [place] [address], [place] [address] Nov, [facility] [address] [id number] [address] [place] [address], [place] [address] Nov, [facility] [address] [id number] [address] [place] [address], [place] [address] Nov, [facility] [address] [id number] [address] [place] [address], [place] [address] Nov, [facility] [address] [id number] [address] [place] [address], [place] [address] Nov, [facility] [address] [id number] [address] [place] [address], [place] [address] Nov, [facility] [address] [id number] [address] [place] [address], [place] [address] Nov, [facility] [address] [id number] [address] [place] [address], [place] [address] Nov, [facility] [address] [id number] [address] [place] [address], [place] [address] Nov, [facility] [address] [id number] [address] [place] [address], [place] [address] Nov, [facility] [address] [id number] [address] [place] [address], [place] [address] Nov, [facility] [address] [id number] [address] [place] [address], [place] [address] Nov, [facility] [address] [id number] [address] [place] [address], [place] [address] Oct, [facility] [address] [id number] [address] [place] [address], [place] [address] 19 Oct, 2014 [facility] [address] [id number] [address] [place] [address], [place] [address] 19 Oct, 2014 [facility] [address] [id number] [address] [place] [address], [place] [address] 18 Oct, 2014 [facility] [address] [id number] [address] [place] [address], [place] [address] 18 Oct, 2014 [facility] [address] [id number] [address] [place] [address], [place] [address] Oct, [facility] [address] [id number] [address] [place] [address], [place] [address] 17 Oct, 2014 [facility] [address] [id number] [address] [place] [address], [place] [address] Oct, [facility] [address] [id number] [address] [place] [address], [place] [address] Oct, [facility] [address] [id number] [address] [place] [address], [place] [address] Sep, [facility] [address] [id number] [address] [place] [address], [place] [address] Sep, [facility] [address] [id number] [address] [place] [address], [place] [address] Sep, [facility] [address] [id number] [address] [place] [address], [place] [address] Sep, [facility] [address] [id number] [address] [place] [address], [place] [address] Sep, [facility] [address] [id number] [address] [place] [address], [place] [address] Sep, [facility] [address] [id number] [address] [place] [address], [place] [address] Sep, [facility] [address] [id number] [address] [place] [address], [place] [address] Sep, [facility] [address] [id number] [address] [place] [address], [place] [address] Sep, [facility] [address] [id number] [address] [place] [address], [place] [address] Sep, [facility] [address] [id number] [address] [place] [address], [place] [address] Sep, [facility] [address] [id number] [address] [place] [address], [place] [address] Sep, [facility] [address] [id number] [address] [place] [address], [place] [address] Aug, [facility] [address] [id number] [address] [place] [address], [place] [address] Aug, [facility] [address] [id number] [address] [place] [address], [place] [address] Aug, [facility] [address] [id number] [address] [place] [address], [place] [address] Aug, [facility] [address] [id number] [address] [place] [address], [place] [address] Aug, [facility] [address] [id number] [address] [place] [address], [place] [address] Aug, [facility] [address] [id number] [address] [place] [address], [place] [address] Aug, [facility] [address] [id number] [address] [place] [address], [place] [address] Aug, [facility] [address] [id number] [address] [place] [address], [place] [address] 30 Jul, 2014 [facility] [address] [id number] [address] [place] [address], [place] [address] 30 Jul, 2014 [facility] [address] [id number] [address] [place] [address], [place] [address] 30 Jul, 2013 [facility] [address] [id number] [address] [place] [address], [place] [address] 30 Jul, 2014 [facility] [address] [id number] [address] [place] [address], [place] [address] Jul, [facility] [address] [id number] [address] [place] [address], [place] [address] Jul, [facility] [address] [id number] [address] [place] [address], [place] [address] 15 Jul, 2014 [facility] [address] [id number] [address] [place] [address], [place] [address] 15 Jul, 2014 [facility] [address] [id number] [address] [place] [address], [place] [address] Jul, [facility] [address] [id number] [address] [place] [address], [place] [address] Jul, [facility] [address] [id number] [address] [place] [address], [place] [address] Jun, [facility] [address] [id number] [address] [place] [address], [place] [address] Jun, [facility] [address] [id number] [address] [place] [address], [place] [address] Jun, [facility] [address] [id number] [address] [place] [address], [place] [address] Jun, [facility] [address] [id number] [address] [place] [address], [place] [address] Jun, [facility] [address] [id number] [address] [place] [address], [place] [address] Jun, [facility] [address] [id number] [address] [place] [address], [place] [address] Jun, [facility] [address] [id number] [address] [place] [address], [place] [address] Jun, [facility] [address] [id number] [address] [place] [address], [place] [address] Jun, [facility] [address] [id number] [address] [place] [address], [place] [address] Jun, [facility] [address] [id number] [address] [place] [address], [place] [address] Jun, [facility] [address] [id number] [address] [place] [address], [place] [address] Jun, [facility] [address] [id number] [address] [place] [address], [place] [address] Jun, [facility] [address] [id number] [address] [place] [address], [place] [address] Jun, [facility] [address] [id number] [address] [place] [address], [place] [address] Jun, [facility] [address] [id number] [address] [place] [address], [place] [address] Jun, [facility] [address] [id number] [address] [place] [address], [place] [address] Jun, [facility] [address] [id number] [address] [place] [address], [place] [address] Jun, [facility] [address] [id number] [address] [place] [address], [place] [address] Jun, [facility] [address] [id number] [address] [place] [address], [place] [address] Jun, [facility] [address] [id number] [address] [place] [address], [place] [address] Jun, [facility] [address] [id number] [address] [place] [address], [place] [address] Jun, [facility] [address] [id number] [address] [place] [address], [place] [address] May, [facility] [address] [id number] [address] [place] [address], [place] [address] May, [facility] [address] [id number] [address] [place] [address], [place] [address] May, [facility] [address] [id number] [facility] [address] May, 2013 [facility] [address] [id number] [facility] [place] [address] May, [facility] [address] [id number] [facility] [place] [address] May, 2013 [facility] [address] [id number] [facility] [address] May, 2013 [facility] [address] [id number] [facility] [address] May, 2013 [facility] [address] [id number] [facility] [place] [address] May, [facility] [address] [id number] [address] [place] [address], [place] [address] May, [facility] [address] [id number] [address] [place] [address], [place] [address] May, [facility] [address] [id number] [address] [place] [address], [place] [address] May, [facility] [address] [id number] [address] [place] [address], [place] [address] May, [facility] [address] [id number] [address] [place] [address], [place] [address] Apr, [facility] [address] [id number] [address] [place] [address], [place] [address] Apr, [facility] [address] [id number] [address] [place] [address], [place] [address] Apr, [facility] [address] [id number] [address] [place] [address], [place] [address] Apr, [facility] [address] [id number] [address] [place] [address], [place] [address] Apr, [facility] [address] [id number] [address] [place] [address], [place] [address] Apr, [facility] [address] [id number] [facility] [place] [address] Apr, [facility] [address] [id number] [facility] [address] Apr, [facility] [address] [id number] [facility] [place] [address] Apr, [facility] [address] [id number] [address] [place] [address], [place] [address] March, [facility] [address] [id number] [address] [place] [address], [place] [address] March, [facility] [address] [id number] [address] [place] [address], [place] [address] March, [facility] [address] [id number] [address] [place] [address], [place] [address] March, [facility] [address] [id number] [address] [place] [address], [place] [address] March, [facility] [address] [id number] [address] [place] [address], [place] [address] March, [facility] [address] [id number] [address] [place] [address], [place] [address] March, [facility] [address] [id number] [address] [place] [address], [place] [address] March, [facility] [address] [id number] [address] [place] [address], [place] [address] March, [facility] [address] [id number] [address] [place] [address], [place] [address] March, [facility] [address] [id number] [address] [place] [address], [place] [address] March, [facility] [address] [id number] [address] [place] [address], [place] [address] March, [facility] [address] [id number] [address] [place] [address], [place] [address] March, [facility] [address] [id number] [address] [place] [address], [place] [address] March, [facility] [address] [id number] [address] [place] [address], [place] [address] March, [facility] [address] [id number] [address] [place] [address], [place] [address] March, [facility] [address] [id number] [address] [place] [address], [place] [address] March, [facility] [address] [id number] [address] [place] [address], [place] [address] March, [facility] [address] [id number] [address] [place] [address], [place] [address] March, [facility] [address] [id number] [address] [place] [address], [place] [address] March, [facility] [address] [id number] [address] [place] [address], [place] [address] Feb, [facility] [address] [id number] [address] [place] [address], [place] [address] Feb, [facility] [address] [id number] [address] [place] [address], [place] [address] Feb, [facility] [address] [id number] [address] [place] [address], [place] [address] Feb, [facility] [address] [id number] [address] [place] [address], [place] [address] Feb, [facility] [address] [id number] [address] [place] [address], [place] [address] Feb, [facility] [address] [id number] [address] [place] [address], [place] [address] Feb, [facility] [address] [id number] [address] [place] [address], [place] [address] Feb, [facility] [address] [id number] [facility] [place] [address] Jan, [facility] [address] [id number] [facility] [place] [address] Jan, [facility] [address] [id number] [facility] [place] [address] Jan, [facility] [address] [id number] [facility] [place] [address] 24 Jan, 2014 [facility] [address] [id number] [address] [place] [address], [place] [address] Jan, [facility] [address] [id number] [address] [place] [address], [place] [address] Jan, [facility] [address] [id number] [address] [place] [address], [place] [address] Jan, [facility] [address] [id number] [address] [place] [address], [place] [address] Jan, [facility] [address] [id number] [address] [place] [address], [place] [address] Jan, [facility] [address] [id number] [address] [place] [address], [place] [address] Jan, [facility] [address] [id number] [address] [place] [address], [place] [address] Dec, [facility] [address] [id number] [address] [place] [address], [place] [address] Dec, [facility] [address] [id number] [address] [place] [address], [place] [address] Dec, [facility] [address] [id number] [address] [place] [address], [place] [address] 2013 [facility] [address] [id number] [address] [place] [address], [place] [address] Dec, [facility] [address] [id number] [address] [place] [address], [place] [address] Dec, [facility] [address] [id number] [address] [place] [address], [place] [address] Dec, [facility] [address] [id number] [address] [place] [address], [place] [address] Dec, [facility] [address] [id number] [address] [place] [address], [place] [address] Nov, [facility] [address] [id number] [address] [place] [address], [place] [address] Nov, [facility] [address] [id number] [address] [place] [address], [place] [address] Nov, [facility] [address] [id number] [address] [place] [address], [place] [address] Nov, [facility] [address] [id number] [address] [place] [address], [place] [address] Nov, [facility] [address] [id number] [address] [place] [address], [place] [address] Nov, [facility] [address] [id number] [address] [place] [address], [place] [address] Nov, [facility] [place] [address] [id number] [address] [place] [address], [place] [address] Nov, [facility] [address] [id number] [address] [place] [address], [place] [address] Nov, [facility] [address] [id number] [address] [place] [address], [place] [address] Nov, [facility] [address] [id number] [address] [place] [address], [place] [address] Nov, [facility] [address] [id number] [address] [place] [address], [place] [address] Nov, [facility] [address] [id number] [address] [place] [address], [place] [address] Nov, [facility] [address] [id number] [address] [place] [address], [place] [address] 30 Oct, 2013 [facility] [address] [id number] [address] [place] [address], [place] [address] Oct, [facility] [address] [id number] [address] [place] [address], [place] [address] Oct, [facility] [address] [id number] [address] [place] [address], [place] [address] Oct, [facility] [address] [id number] [address] [place] [address], [place] [address] Oct, [facility] [address] [id number] [address] [place] [address], [place] [address] Oct, [facility] [address] [id number] [address] [place] [address], [place] [address] Oct, [facility] [address] [id number] [address] [place] [address], [place] [address] Oct, [facility] [address] [id number] [address] [place] [address], [place] [address] Oct, [facility] [address] [id number] [address] [place] [address], [place] [address] Oct, [facility] [address] [id number] [address] [place] [address], [place] [address] Oct, [facility] [address] [id number] [address] [place] [address], [place] [address] Oct, [facility] [address] [id number] [address] [place] [address], [place] [address] Oct, [facility] [address] [id number] [address] [place] [address], [place] [address] Oct, [facility] [address] [id number] [address] [place] [address], [place] [address] 14 Sep, 2013 [facility] [address] [id number] [address] [place] [address], [place] [address] Sep, [facility] [address] [id number] [address] [place] [address], [place] [address] Sep, [facility] [address] [id number] [address] [place] [id number] Sep, [facility] [address] [id number] [address] [place] [id number] Sep, [facility] [address] [id number] [address] [place] [id number] Sep, [facility] [address] [id number] [address] [place] [address], [place] [address] Sep, [facility] [address] [id number] [address] [place] [id number] Sep, [facility] [address] [id number] [address] [place] [id number] Sep, [facility] [address] [id number] [address] [place] [id number] Sep, [facility] [address] [id number] [address] [place] [id number] Aug, [facility] [address] [id number] [address] [place] [id number] Aug, [facility] [address] [id number] [address] [place] [id number] Aug, [facility] [address] [id number] [address] [place] [id number] Aug, [facility] [address] [id number] [address] [place] [address], [place] [address] Aug, [facility] [address] [id number] [address] [place] [id number] Aug, [facility] [address] [id number] [address] [place] [id number] Aug, [facility] [address] [id number] [address] [place] [address], [place] [address] 23 Aug, 2012 [facility] [address] [id number] [address] [place] [address], [place] [address] 22 Aug, 2012 [facility] [address] [id number] [address] [place] [address], [place] [address] 22 Aug, 2012 [facility] [address] [id number] [address] [place] [address], [place] [address] 18 Aug, 2012 [facility] [address] [id number] [address] [place] [address], [place] [address] 18 Aug, 2012 [facility] [address] [id number] [address] [place] [address], [place] [address] 18 Aug, 2013 [facility] [address] [id number] [address] [place] [address], [place] [address] 18 Aug, 2013 [facility] [address] [id number] [address] [place] [address], [place] [address] 17 Aug, 2012 [facility] [address] [id number] [address] [place] [address], [place] [address] 14 Aug, 2013 [facility] [address] [id number] [address] [place] [address], [place] [address] 14 Aug, 2013 [facility] [place] [address] [id number] [address] [place] [address], [place] [address] 01 Aug, 2013 [facility] [address] [id number] [address] [place] [address], [place] [address] 20 Jul, 2012 [facility] [address] [id number] [address] [place] [address], [place] [address] 19 Sep, 2012 [facility] [address] [id number] [address] [place] [address], [place] [address] 18 Sep, 2012 [facility] [address] [id number] [address] [place] [address], [place] [address] 11 Jul, 2012 [facility] [address] [id number] [address] [place] [address], [place] [address] Jul, [facility] [address] [id number] [address] [place] [address], [place] [address] Jun, [facility] [address] [id number] [address] [place] [address], [place] [address] Jun, [facility] [address] [id number] [address] [place] [address], [place] [address] Jun, [facility] [address] [id number] [address] [place] [address], [place] [address] Jun, [facility] [address] [id number] [address] [place] [address], [place] [address] Jun, [facility] [address] [id number] [address] [place] [address], [place] [address] Jun, [facility] [address] [id number] [address] [place] [address], [place] [address] Jun, [facility] [address] [id number] [address] [place] [address], [place] [address] Jun, [facility] [address] [id number] [address] [place] [address], [place] [address] Jun, [facility] [address] [id number] [address] [place] [address], [place] [address] Jun, [facility] [address] [id number] [address] [place] [address], [place] [address] May, [facility] [address] [id number] [address] [place] [address], [place] [address] May, [facility] [address] [id number] [address] [place] [address], [place] [address] May, [facility] [address] [id number] [address] [place] [address], [place] [address] May, [facility] [address] [id number] [address] [place] [address], [place] [address] May, [facility] [address] [id number] [address] [place] [address], [place] [address] 16 May, 2013 [facility] [address] [id number] [address] [place] [address], [place] [address] May, [facility] [address] [id number] [address] [place] [address], [place] [address] May, [facility] [address] [id number] [address] [place] [address], [place] [address] May, [facility] [address] [id number] [address] [place] [address], [place] [address] Apr, [facility] [address] [id number] [address] [place] [address], [place] [address] Apr, [facility] [address] [id number] [address] [place] [address], [place] [address] Apr, [facility] [address] [id number] [address] [place] [address], [place] [address] Apr, [facility] [address] [id number] [address] [place] [address], [place] [address] Apr, [facility] [address] [id number] [address] [place] [address], [place] [address] Apr, [facility] [address] [id number] [address] [place] [address], [place] [address] Apr, [facility] [place] [address] [id number] [address] [place] [address], [place] [address] March, [facility] [address] [id number] [address] [place] [address], [place] [address] Feb, [facility] [address] [id number] [address] [place] [address], [place] [address] Feb, [facility] [address] [id number] [address] [place] [address], [place] [address] Feb, [facility] [address] [id number] [address] [place] [address], [place] [address] Jan, [facility] [address] [id number] [address] [place] [address], [place] [address] 21 Jan, 2013 [facility] [address] [id number] [address] [place] [address], [place] [address] 19 Jan, 2013 [facility] [address] [id number] [address] [place] [address], [place] [address] 14 Jan, 2013 [facility] [address] [id number] [address] [place] [address], [place] [address] 12 Jan, 2013 [facility] [address] [id number] [address] [place] [address], [place] [address] 08 Jan, 2013 [facility] [address] [id number] [address] [place] [address], [place] [address] 07 Jan, 2013 [facility] [address] [id number] [address] [place] [address], [place] [address] 04 Jan, 2013 [facility] [address] [id number] [address] [place] [address], [place] [address] 28 Dec, 2012 [facility] [address] [id number] [address] [place] [address], [place] [address] 25 Dec, 2012 [facility] [address] [id number] [address] [place] [address], [place] [address] 13 Dec, 2012 [facility] [address] [id number] [address] [place] [address], [place] [address] 11 Dec, 2012 [facility] [address] [id number] [address] [place] [address], [place] [address] 07 Dec, 2012 [facility] [address] [id number] [address] [place] [address], [place] [address] 06 Dec, 2012 [facility] [address] [id number] [address] [place] [address], [place] [address] 05 Dec, 2012 [facility] [address] [id number] [address] [place] [address], [place] [address] Nov, [facility] [address] [id number] [address] [place] [address], [place] [address] Nov, [facility] [address] [id number] [address] [place] [address], [place] [address] 18 Nov, 2012 [facility] [address] [id number] [address] [place] [address], [place] [address] 15 Nov, 2012 [facility] [address] [id number] [address] [place] [address], [place] [address] Nov, [facility] [address] [id number] [address] [place] [address], [place] [address] Nov, [facility] [address] [id number] [address] [place] [address], [place] [address] Nov, [facility] [address] [id number] [address] [place] [address], [place] [address] Oct, [facility] [place] [address] [id number] [address] [place] [address], [place] [address] Oct, [facility] [address] [id number] [address] [place] [address], [place] [address] Oct, [facility] [place] [address] [id number] [address] [place] [address], [place] [address] Oct, [facility] [address] [id number] [address] [place] [address], [place] [address] Oct, [facility] [place] [address] [id number] [address] [place] [address], [place] [address] Oct, [facility] [address] [id number] [address] [place] [address], [place] [address] Oct, [facility] [address] [id number] [address] [place] [address], [place] [address] Oct, [facility] [address] [id number] [address] [place] [address], [place] [address] 05 Oct, 2012 [facility] [address] [id number] [address] [place] [address], [place] [address] 05 Oct, 2012 [facility] [address] [id number] [address] [place] [address], [place] [address] Oct, [facility] [address] [id number] [address] [place] [address], [place] [address] Oct, [facility] [address] [id number] [address] [place] [address], [place] [address] Sep, [facility] [address] [id number] [address] [place] [address], [place] [address] Sep, [facility] [address] [id number] [address] [place] [address], [place] [address] Sep, [facility] [address] [id number] [address] [place] [address], [place] [address] Sep, [facility] [address] [id number] [address] [place] [address], [place] [address] Sep, [facility] [address] [id number] [address] [place] [address], [place] [address] Sep, [facility] [address] [id number] [address] [place] [address], [place] [address] Sep, [facility] [address] [id number] [address] [place] [address], [place] [address] Sep, [facility] [address] [id number] [address] [place] [address], [place] [address] Sep, [facility] [address] [id number] [address] [place] [address], [place] [address] Sep, [facility] [address] [id number] [address] [place] [address], [place] [address] Sep, [facility] [address] [id number] [address] [place] [address], [place] [address] Aug, [facility] [address] [id number] [address] [place] [address], [place] [address] Aug, [facility] [address] [id number] [address] [place] [address], [place] [address] Aug, [facility] [address] [id number] [address] [place] [address], [place] [address] Aug, [facility] [address] [id number] [address] [place] [address], [place] [address] Aug, [facility] [address] [id number] [address] [place] [address], [place] [address] Aug, [facility] [address] [id number] [address] [place] [address], [place] [address] Aug, [facility] [address] [id number] [address] [place] [address], [place] [address] Aug, [facility] [address] [id number] [address] [place] [address], [place] [address] Aug, [facility] [address] [id number] [address] [place] [address], [place] [address] Aug, [facility] [address] [id number] [address] [place] [address], [place] [address] Jul, [facility] [address] [id number] [address] [place] [address], [place] [address] 20 Jul, 2012 [facility] [address] [id number] [address] [place] [address], [place] [address] 10 Jul, 2012 [facility] [address] [id number] [address] [place] [address], [place] [address] 06 Jul, 2012 [facility] [address] [id number] [address] [place] [address], [place] [address] 30 Jun, 2012 [facility] [address] [id number] [address] [place] [address], [place] [address] Jun, [facility] [address] [id number] [address] [place] [address], [place] [address] 16 Jun, 2012 [facility] [address] [id number] [address] [place] [address], [place] [address] Jun, [facility] [address] [id number] [address] [place] [address] [place] [address] Jun, [facility] [address] [id number] [address] [place] [address], [place] [address] Jun, [facility] [address] [id number] [address] [place] [address], [place] [address] Jun, [facility] [address] [id number] [address] [place] [address], [place] [address] May, [facility] [address] [id number] [address] [place] [address], [place] [address] May, [facility] [address] [id number] [address] [place] [address], [place] [address] May, [facility] [address] [id number] [address] [place] [address], [place] [address] May, [facility] [place] [address] [id number] [address] [place] [address], [place] [address] May, [facility] [address] [id number] [address] [place] [address], [place] [address] Apr, [facility] [address] [id number] [address] [place] [address], [place] [address] Apr, [facility] [address] [id number] [address] [place] [address], [place] [address] Apr, [facility] [address] [id number] [address] [place] [address], [place] [address] Apr, [facility] [address] [id number] [address] [place] [address], [place] [address] Apr, [facility] [address] [id number] [address] [place] [address], [place] [address] March, [facility] [address] [id number] [address] [place] [address], [place] [address] March, [facility] [address] [id number] [address] [place] [address], [place] [address] March, [facility] [address] [id number] [address] [place] [address], [place] [address] March, [facility] [address] [id number] [address] [place] [address], [place] [address] March, [facility] [address] [id number] [address] [place] [address], [place] [address] March, [facility] [address] [id number] [address] [place] [address], [place] [address] March, [facility] [address] [id number] [address] [place] [address], [place] [address] March, [facility] [address] [id number] [address] [place] [address], [place] [address] March, [facility] [address] [id number] [address] [place] [address], [place] [address] March, [facility] [address] [id number] [address] [place] [address], [place] [address] 30 Feb, 2012 [facility] [address] [id number] [address] [place] [address], [place] [address] Feb, [facility] [place] [address] [id number] [address] [place] [address], [place] [address] Feb, [facility] [address] [id number] [address] [place] [address], [place] [address] Feb, [facility] [address] [id number] [address] [place] [address], [place] [address] 17 Feb, 2012 [facility] [address] [id number] [address] [place] [address], [place] [address] Feb, [facility] [address] [id number] [address] [place] [address], [place] [address] Feb, [facility] [address] [id number] [address] [place] [address], [place] [address] Feb, [facility] [address] [id number] [address] [place] [address], [place] [address] Feb, [facility] [address] [id number] [address] [place] [address], [place] [address] Jan, [facility] [address] [id number] [address] [place] [address], [place] [address] Jan, [facility] [address] [id number] [address] [place] [address], [place] [address] Jan, [facility] [address] [id number] [address] [place] [address], [place] [address] Jan, [facility] [address] [id number] [address] [place] [address], [place] [address] Dec, [facility] [address] [id number] [address] [place] [address], [place] [address] Dec, [facility] [address] [id number] [address] [place] [address], [place] [address] Nov, [facility] [address] [id number] [address] [place] [address], [place] [address] Nov, [facility] [address] [id number] [address] [place] [address], [place] [address] Nov, [facility] [address] [id number] [address] [place] [address], [place] [address] Nov, [facility] [place] [address] [id number] [address] [place] [address], [place] [address] Nov, [facility] [address] [id number] [address] [place] [address], [place] [address] Oct, [facility] [address] [id number] [address] [place] [address], [place] [address] Oct, [facility] [address] [id number] [address] [place] [address], [place] [address] Oct, [facility] [address] [id number] [address] [place] [address], [place] [address] Oct, [facility] [address] [id number] [address] [place] [id number] Oct, [facility] [address] [facility] [id number] [address] [place] [id number] Oct, [facility] [address] [facility] [id number] [address] [place] [id number] Oct, [facility] [address] [facility] [id number] [address] [place] [id number] Oct, [facility] [address] [facility] [id number] [address] [place], [id number] Sep, IMMUNIZATIONS No Known Immunizations SOCIAL HISTORY [...] fever, discharged 11/27/2017 11/26/2017 Hospitalization History [facility]- Went Unrepsonsive, Hit head 2017 Hospitalization History [facility]- Back Pain 8
--- OUTSIDE RECORDS SUMMARY | 2020-06-18 14:48 | XMS REPORT ---
Author Sanjuanita Roberts Organization [facility] Address [address] [place] [address] Care Team Providers Care Internal Audit Director Name Role Phone ELIAZAR BLANCO Unavailable PROBLEMS Type Condition ICD9-CM Code PVX66-AC Code Onset Dates Condition S tatus SNOMED Code Problem Hypertension I10 Active 4887761 3 Problem Hyperlipidemia E78.5 Active 57612 004 Problem Coronary artery disease I25.10 Active 20850626 Problem Low back pain M54.5 Active 210661 009 Problem Other chronic pain G89.29 Active 8 5738821 Problem Ventral hernia without obstruction or gangrene K43 .9 Active 026762970 Problem Type 2 diabetes mellitus wit hout complication, without long-term current use of insulin E11.9 Active 419663285 Problem Anxiety F41.9 Active 97178156 Problem Peripheral vascular disease I73.9 Ac tive 482602027 Problem Insomnia G47.00 Active 937429003 Problem Microcytic anemia D50.9 Active 23 9765791 Problem Pharyngeal dysphagia R13.13 Active 69620272253384 Problem Other iron deficiency anemia D50.8 A ctive 98503542 Problem Reactive depression F32.9 Active 94247829 Problem Paroxysmal atrial fibrillation I48.0 Active 227927032 Problem 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 Active 18210643 Problem Encounter for suprapubic catheter care Z43.5 Active 439200107 Problem Neurogenic bladder N31.9 Active 3 [id number] ALLERGIES No Information ENCOUNTERS Encounter Location Date Diagnosis [facility] [address] [facility] [id number] [address] [place] [id number] Jan, Anxiety F41.9 and Strain of right shoulder, subsequent encounter S46.911D [facility] [address] [facility] [id number] [address] [place] [phone] Jan, [facility] [address] [place] [id number] Jan, Neurogenic bladder N31.9 [facility] [address] [id number] [address] [place] [phone] Dec, [facility] [address] [id number] [address] [place] [id number] Dec, [facility] [address] [id number] [address] [place] [id number] Dec, Anxiety F41.9 and Strain of right shoulder, subsequent encounter S46.911D [facility] [address] [id number] [address] [place] [phone] 10 Dec, 2019 Other iron deficiency anemia D50.8 [facility] [address] [id number] [address] [place] [id number] 04 Dec, 2019 [facility] [address] [place] [id number] Dec, Encounter for suprapubic catheter care Z 43.5 and Microcytic anemia D50.9 [facility] [address] [id number] [address] [place] [id number] Dec, [facility] [address] [id number] [address] [place] [id number] Nov, Anxiety F41.9 and Strain of right shoulder, subsequent encounter S46.911D [facility] [address] [id number] [address] [place] [phone] Nov, Hypertension I10 [facility] [address] [place] [id number] Nov, Pneumonia of both lungs due to infectiou s organism, unspecified part of lung J18.9 and Suprapubic catheter Z93.59 [facility] [address] [id number] [address] [place] [id number] Nov, Hypertension I10 and Reactiv e depression F32.9 [facility] [address] [id number] [address] [place] [id number] Oct, Strain of right shoulder, scherer bsequent encounter S46.911D and Anxiety F41.9 [facility] [address] [id number] [address] [place] [id number] Oct, [facility] [address] [place] [id number] Oct, Suprapubic catheter Z93.59 and Candidias is, intertriginous B37.2 [facility] [address] [id number] [address] [place] [phone] Oct, Suprapubic catheter Z93.59 [facility] [address] [id number] [address] [place] [id number] Oct, Anxiety F41.9 and Strain of right shoulder, subsequent encounter S46.911D [facility] [address] [id number] [address] [place] [id number] Sep, [facility] [address] [id number] [address] [place] [phone] Sep, [facility] [address] [id number] [address] [place] [phone] Sep, [facility] [address] [place] [id number] Sep, Suprapubic catheter Z93.59 [facility] [address] [id number] [address] [place] [id number] Sep, Anxiety F41.9 and Strain of right shoulder, subsequent encounter S46.911D [facility] [address] [id number] [address] [place] [id number] Aug, [facility] [address] [id number] [address] [place] [id number] Aug, [facility] [address] [id number] [address] [place] [id number] Aug, Anxiety F41.9 and Strain of right shoulder, subsequent encounter S46.911D [facility] [address] [place] [id number] Aug, Suprapubic catheter Z93.59 [facility] [address] [id number] [address] [place] [id number] Jul, Strain of right shoulder, scherer bsequent encounter S46.911D and Anxiety F41.9 [facility] [address] [id number] [address] [place] [phone] Jul, Anxiety F41.9 [facility] [address] [id number] [address] [place] [phone] Jun, [facility] [address] [id number] [address] [place] [phone] Jun, [facility] [address] [id number] [address] [place] [id number] Jun, [facility] [address] [id number] [address] [place] [id number] Jun, Strain of right shoulder, scherer bsequent encounter S46.911D [facility] [address] [id number] [address] [place] [phone] Jun, Strain of right shoulder, scherer bsequent encounter S46.911D [facility] [place] [address] [id number] [address] [place] [phone] Jun, Anxiety F41.9 [facility] [address] [place] [id number] Jun, Neurogenic bladder N31.9 and Anxiety F41 .9 [facility] [address] [place] [id number] May, Anxiety F41.9 [facility] [address] [id number] [address] [place] [phone] May, Dysuria R30.0 [facility] [address] [id number] [address] [place] [phone] May, Strain of right shoulder, scherer bsequent encounter S46.911D and Anxiety F41.9 [facility] [address] [id number] [address] [place] [phone] 27 Apr, 2019 [facility] [address] [place] [id number] Apr, Strain of right shoulder, subsequent enc ounter S46.911D [place] [address] [id number] [address] [place] [id number] 14 Apr, 2019 Strain of right shoulder, scherer bsequent encounter S46.911D and Anxiety F41.9 [facility] [address] [place] [id number] 13 Apr, 2019 Type 2 diabetes mellitus without complic ation, without long-term current use of insulin E11.9 and Neurogenic bladder N31.9 [facility] [address] [place] [id number] Apr, Strain of right shoulder, subsequent enc ounter S46.911D ; History of GI bleed Z87.19 ; Neurogenic bladder N31.9 and Reactive depression F32.9 [place] [address] [id number] [address] [place] [id number] Apr, Acute pain of left shoulder M25.512 [place] [address] [id number] [address] [place] [phone] Apr, [place] [address] [id number] [address] [place] [id number] Apr, Anxiety F41.9 and 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 [facility] [address] [place] [id number] March, Gastrointestinal hemorrhage associated w ith acute gastritis K29.01 [place] [address] [id number] [address] [place] [phone] March, [facility] [address] [place] [id number] March, Bronchitis J40 [facility] [address] [id number] [address] [place] [phone] March, Cough R05 [facility] [address] [id number] [address] [place] [id number] March, Other chronic pain G89.29 [facility] [address] [id number] [address] [place] [id number] March, Anxiety F41.9 [facility] [address] [id number] [address] [place] [phone] March, [facility] [address] [id number] [address] [place] [phone] Feb, Other chronic pain G89.29 [facility] [address] [id number] [address] [place] [phone] Feb, Anxiety F41.9 [facility] [address] [id number] [address] [place] [id number] Feb, Other chronic pain G89.29 [facility] [address] [place] [id number] Feb, Neurogenic bladder N31.9 and Suprapubic catheter Z93.59 [facility] [address] [id number] [address] [place] [id number] Jan, Anxiety F41.9 [facility] [address] [id number] [address] [place] [phone] Dec, Anxiety F41.9 [facility] [address] [id number] [address] [place] [phone] Dec, Other chronic pain G89.29 an d Anxiety F41.9 [facility] [address] [id number] [address] [place] [phone] Dec, Via [facility] [address] [place] [id number] Dec, Neurogenic bladder N31.9 and Suprapubic catheter Z93.59 [facility] [address] [id number] [address] [place] [phone] Nov, Other chronic pain G89.29 an d Anxiety F41.9 [facility] [address] [id number] [address] [place] [phone] Nov, Via [facility] [address] [place] [id number] Nov, Suprapubic catheter Z93.59 [facility] [address] [id number] [address] [place] [id number] Oct, Other chronic pain G89.29 an d Anxiety F41.9 [facility] [address] [id number] [address] [place] [phone] Oct, [facility] [address] [id number] [address] [place] [id number] Oct, Suprapubic catheter Z93.59 [facility] [address] [id number] [address] [place] [phone] Oct, [facility] [address] [place] [id number] Oct, [facility] [address] [id number] [address] [place] [phone] Oct, Anxiety F41.9 [facility] [address] [id number] [address] [place] [id number] Oct, Anxiety F41.9 [facility] [address] [place] [id number] Oct, Other chronic pain G89.29 [facility] [address] [id number] [address] [place] [id number] Sep, Other chronic pain G89.29 [facility] [address] [place] [id number] Sep, Suprapubic catheter Z93.59 and Cervicalg ia M54.2 [facility] [address] [id number] [address] [place] [id number] Sep, [facility] [address] [id number] [address] [place] [id number] Sep, [facility] [address] [id number] [address] [place] [phone] Sep, [facility] [address] [place] [id number] Aug, Cystitis N30.90 [facility] [address] [id number] [address] [place] [phone] Aug, [facility] [address] [id number] [address] [place] [id number] Aug, Other chronic pain G89.29 [facility] [address] [id number] [address] [place] [phone] Aug, [facility] [address] [place] [id number] Aug, Encounter for suprapubic catheter care Z 43.5 [facility] [address] [id number] [address] [place] [phone] Jul, [facility] [address] [place] [id number] Jul, [facility] [address] [id number] [address] [place] [id number] Jul, Other chronic pain G89.29 [facility] [address] [id number] [address] [place] [id number] Jul, [facility] [address] [id number] [address] [place] [phone] Jul, [facility] [address] [place] [id number] Jun, 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 [facility] [address] [id number] [address] [place] [phone] Jun, Other chronic pain G89.29 [facility] [address] [id number] [address] [place] [id number] Jun, [facility] [address] [place] [id number] May, Anxiety F41.9 ; Type 2 diabetes mellitus without complication, without long-term current use of insulin E11.9 ; Hypertension I10 ; Low back pain M54.5 ; Paroxysmal atrial fibrillation I48.0 and 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 [facility] [address] [id number] [address] [place] [id number] May, Other chronic pain G89.29 [facility] [address] [place] [id number] May, Low back pain M54.5 [facility] [address] [id number] [address] [place] [id number] May, [facility] [address] [id number] [address] [place] [id number] Apr, Other chronic pain G89.29 [facility] [address] [id number] [address] [place] [phone] Apr, [facility] [address] [id number] [address] [place] [id number] Apr, [facility] [address] [place] [id number] Apr, Closed compression fracture of L3 lumbar vertebra with routine healing, subsequent encounter S32.030D [facility] [address] [place] [id number] Apr, Low back pain M54.5 [facility] [address] [place] [id number] Apr, Coccydynia M53.3 [facility] [address] [id number] [address] [place] [phone] March, [facility] [address] [id number] [address] [place] [id number] March, Other chronic pain G89.29 [facility] [address] [id number] [address] [place] [phone] March, [facility] [address] [id number] [address] [place] [phone] March, [facility] [address] [id number] [address] [place] [phone] Feb, [facility] [address] [id number] [address] [place] [phone] Feb, Other chronic pain G89.29 [facility] [address] [place] [id number] Feb, Other chronic pain G89.29 and Anxiety F4 1.9 [facility] [address] [id number] [address] [place] [phone] Feb, [facility] [address] [id number] [address] [place] [phone] Jan, [facility] [address] [id number] [address] [place] [id number] Jan, [facility] [address] [id number] [address] [place] [phone] Jan, [facility] [address] [id number] [address] [place] [phone] Jan, [facility] [address] [id number] [address] [place] [phone] Dec, [facility] [address] [place] [id number] Dec, Peripheral vascular disease I73.9 ; 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 ; Other chronic pain G89.29 ; Anxiety F41.9 ; Reactive depression F32.9 ; Insomnia G47.00 and Type 2 diabetes mellitus without complication, without long-term current use of insulin E11.9 [facility] [place] [address] [id number] [place] [address] Nov, [facility] [address] [id number] [place] [id number] Nov, Anxiety F41.9 [facility] [address] [id number] [address] [place] [phone] Nov, [facility] [address] [id number] [place] [id number] Nov, Anxiety F41.9 [facility] [address] [place] [id number] Nov, Status post surgery Z98.890 ; Confused R 41.0 ; Anxiety F41.9 and Other chronic pain G89.29 [facility] [address] [id number] [place] [id number] Nov, Other chronic pain G89.29 [facility] [address] [id number] [address] [place] [id number] Oct, [facility] [address] [id number] [place] [id number] Oct, Other chronic pain G89.29 [facility] [address] [id number] [address] [place] [phone] Oct, Anxiety F41.9 [facility] [address] [id number] [place] [id number] Sep, Other chronic pain G89.29 [facility] [address] [id number] [place] [id number] Sep, [facility] [address] [place] [id number] Aug, Dysuria R30.0 and Anxiety F41.9 [facility] [address] [id number] [address] [place] [phone] Aug, [facility] [address] [id number] [place] [id number] Aug, Other chronic pain G89.29 [facility] [address] [id number] [address] [place] [id number] Jul, Other chronic pain G89.29 [facility] [address] [id number] [place] [id number] Jun, [facility] [address] [id number] [place] [id number] Jun, Other chronic pain G89.29 [facility] [address] [id number] [address] [place] [id number] Jun, [facility] [address] [id number] [address] [place] [id number] May, Other chronic pain G89.29 [facility] [address] [id number] [address] [place] [phone] Apr, Other chronic pain G89.29 [facility] [address] [place] [id number] Apr, Reactive depression F32.9 and Pharyngeal dysphagia R13.13 [facility] [address] [facility] [id number] [address] [place] [phone] Apr, Urinary tract infection with out hematuria, site unspecified N39.0 [facility] [address] [id number] [address] [place] [id number] March, Other chronic pain G89.29 [facility] [address] [id number] [address] [place] [id number] Feb, Other chronic pain G89.29 [facility] [address] [id number] [address] [place] [phone] Feb, [facility] [address] [id number] [place] [id number] Feb, [facility] [address] [place] [id number] Feb, Dysuria R30.0 and Ventral hernia without obstruction or gangrene K43.9 [facility] [address] [id number] [address] [place] [id number] Jan, Other chronic pain G89.29 [facility] [id number] [place] [id number] Dec, Other chronic pain G89.29 [facility] [address] [id number] [address] [place] [id number] Nov, Other chronic pain G89.29 [facility] [address] [place] [id number] Nov, Lymphadenitis I88.9 [facility] [address] [id number] [address] [place] [id number] Nov, Other chronic pain G89.29 [facility] [address] [id number] [address] [place] [phone] Nov, [facility] [id number] [place] [id number] Nov, Other chronic pain G89.29 [facility] [address] [place] [id number] Oct, Low back pain M54.5 ; Hypertension I10 a nd Type 2 diabetes mellitus without complication, without long-term current use of insulin E11.9 [facility] [address] [id number] [address] [place] [phone] Oct, [facility] [address] [id number] [address] [place] [phone] Oct, [facility] [address] [id number] [address] [place] [phone] Oct, [facility] [address] [id number] [address] [place] [id number] Oct, [facility] [address] [id number] [address] [place] [phone] Sep, [facility] [address] [id number] [address] [place] [phone] Sep, [facility] [address] [id number] [address] [place] [id number] Aug, Other chronic pain G89.29 [facility] [address] [id number] [address] [place] [id number] Jul, [facility] [address] [id number] [address] [place] [id number] Jul, [facility] [address] [id number] [address] [place] [id number] Jul, [facility] [address] [id number] [address] [place] [phone] Jun, [facility] [address] [id number] [address] [place] [phone] Jun, [facility] [address] [place] [id number] Jun, Low back pain M54.5 ; Other chronic pain G89.29 and Coronary artery disease I25.10 [facility] [address] [id number] [address] [place] [phone] Jun, [facility] [address] [id number] [address] [place] [id number] May, [facility] [address] [id number] [address] [place] [id number] May, [facility] [address] [id number] [address] [place] [id number] May, Other chronic pain G89.29 [facility] [address] [id number] [address] [place] [phone] May, [facility] [address] [id number] [address] [place] [phone] Apr, [facility] [address] [id number] [address] [place] [phone] Apr, Acute cystitis without hemat uria N30.00 [facility] [address] [id number] [address] [place] [phone] Apr, Acute cystitis without hemat uria N30.00 ; Coronary artery disease I25.10 ; Low back pain M54.5 and Other chronic pain G89.29 [facility] [address] [id number] [address] [place] [id number] Apr, Other chronic pain G89.29 [facility] [address] [id number] [address] [place] [phone] March, Other chronic pain G89.29 [facility] [address] [id number] [address] [place] [phone] 18 Feb, 2016 [facility] [address] [id number] [address] [place] [phone] Feb, Arthritis M19.90 [facility] [address] [id number] [address] [place] [phone] Feb, [facility] [address] [facility] [id number] [address] [place] [id number] Jan, [facility] [address] [id number] [address] [place] [phone] Jan, [facility] [address] [id number] [address] [place] [address] Jan, Other chronic pain G89.29 [facility] [address] [id number] [address] [place] [address] Jan, Hypertension I10 ; Coronary artery disease I25.10 and Insomnia G47.00 [facility] [address] [id number] [address] [place] [phone] Jan, [facility] [address] [id number] [address] [place] [id number] Dec, Right hip pain M25.551 [facility] [address] [id number] [address] [place] [address] Dec, [facility] [address] [facility] [id number] [address] [place] [phone] Dec, [facility] [address] [id number] [address] [place] [phone] Dec, [facility] [address] [id number] [address] [place] [phone] Dec, Other chronic pain G89.29 [facility] [address] [id number] [address] [place] [phone] Dec, [facility] [address] [id number] [address] [place] [phone] Nov, [facility] [address] [id number] [address] [place] [phone] Nov, Other chronic pain G89.29 [facility] [address] [id number] [address] [place] [phone] Nov, Right hip pain M25.551 and C oronary artery disease I25.10 [facility] [address] [id number] [address] [place] [address] Nov, Other chronic pain G89.29 [facility] [address] [id number] [address] [place] [phone] Oct, [facility] [address] [id number] [address] [place] [phone] Oct, [facility] [address] [id number] [address] [place] [phone] Sep, [facility] [address] [id number] [address] [place] [phone] Sep, [facility] [address] [id number] [address] [place] [phone] Aug, [facility] [address] [id number] [address] [place] [id number] Aug, Hypertension I10 ; Coronary artery disease I25.10 and Arthritis M19.90 [facility] [address] [id number] [address] [place] [phone] Jun, [facility] [address] [id number] [address] [place] [phone] Jun, Essential hypertension, jayson gn 401.1 ; Other chronic pain 338.29 and Chronic airway obstruction, not elsewhere classified 496 [facility] [address] [id number] [address] [place] [address], [place] [address] Jun, [facility] [address] [id number] [address] [place] [phone] Jun, [facility] [address] [id number] [address] [place] [phone] Jun, [facility] [address] [id number] [address] [place] [phone] May, [facility] [address] [id number] [address] [place] [phone] May, [facility] [address] [id number] [address] [place] [phone] Apr, [facility] [address] [id number] [address] [place] [phone] Apr, [facility] [address] [id number] [address] [place] [phone] Apr, [facility] [address] [id number] [address] [place] [phone] March, [facility] [address] [id number] [address] [place] [phone] March, [facility] [address] [id number] [address] [place] [phone] March, [facility] [address] [id number] [address] [place] [phone] March, [facility] [address] [id number] [address] [place] [phone] March, Sialadenitis 527.2 [facility] [address] [id number] [address] [place] [phone] Feb, [facility] [address] [id number] [address] [place] [address], [place] [address] Feb, [facility] [address] [id number] [address] [place] [address], [place] [address] Feb, [facility] [address] [id number] [address] [place] [address], [place] [address] Feb, [facility] [address] [id number] [address] [place] [address], [place] [address] Feb, [facility] [address] [id number] [address] [place] [address], [place] [address] Jan, [facility] [address] [id number] [address] [place] [address], [place] [address] Jan, [facility] [address] [id number] [address] [place] [address], [place] [address] Jan, [facility] [address] [id number] [address] [place] [address], [place] [address] Jan, [facility] [address] [id number] [address] [place] [address], [place] [address] Jan, [facility] [address] [id number] [address] [place] [address], [place] [address] Jan, [facility] [address] [id number] [address] [place] [address], [place] [address] Dec, [facility] [address] [id number] [address] [place] [address], [place] [address] Dec, 2014 [facility] [address] [id number] [address] [place] [address], [place] [address] Dec, [facility] [address] [id number] [address] [place] [address], [place] [address] Dec, 2014 [facility] [address] [id number] [address] [place] [address], [place] [address] Dec, [facility] [address] [id number] [address] [place] [address], [place] [address] Dec, [facility] [address] [id number] [address] [place] [address], [place] [address] Nov, [facility] [address] [id number] [address] [place] [address], [place] [address] Nov, [facility] [address] [id number] [address] [place] [address], [place] [address] Nov, [facility] [address] [id number] [address] [place] [address], [place] [address] Nov, [facility] [address] [id number] [address] [place] [address], [place] [address] Nov, [facility] [address] [id number] [address] [place] [address], [place] [address] Nov, [facility] [address] [id number] [address] [place] [address], [place] [address] Nov, [facility] [address] [id number] [address] [place] [address], [place] [address] Nov, [facility] [address] [id number] [address] [place] [address], [place] [address] Nov, [facility] [address] [id number] [address] [place] [address], [place] [address] Nov, [facility] [address] [id number] [address] [place] [address], [place] [address] Nov, [facility] [address] [id number] [address] [place] [address], [place] [address] Nov, [facility] [address] [id number] [address] [place] [address], [place] [address] Nov, [facility] [address] [id number] [address] [place] [address], [place] [address] Nov, [facility] [address] [id number] [address] [place] [address], [place] [address] Oct, [facility] [address] [id number] [address] [place] [address], [place] [address] Oct, [facility] [address] [id number] [address] [place] [address], [place] [address] Oct, [facility] [address] [id number] [address] [place] [address], [place] [address] 18 Oct, 2014 [facility] [address] [id number] [address] [place] [address], [place] [address] Oct, [facility] [address] [id number] [address] [place] [address], [place] [address] Oct, [facility] [address] [id number] [address] [place] [address], [place] [address] Oct, [facility] [address] [id number] [address] [place] [address], [place] [address] Oct, [facility] [address] [id number] [address] [place] [address], [place] [address] Oct, [facility] [address] [id number] [address] [place] [address], [place] [address] Sep, [facility] [address] [id number] [address] [place] [address], [place] [address] Sep, [facility] [address] [id number] [address] [place] [address], [place] [address] Sep, [facility] [address] [id number] [address] [place] [address], [place] [address] Sep, [facility] [address] [id number] [address] [place] [address], [place] [address] Sep, [facility] [address] [id number] [address] [place] [address], [place] [address] Sep, [facility] [address] [id number] [address] [place] [address], [place] [address] Sep, [facility] [address] [id number] [address] [place] [phone] Sep, [facility] [address] [id number] [address] [place] [address], [place] [address] Sep, [facility] [address] [id number] [address] [place] [phone] Sep, [facility] [address] [id number] [address] [place] [address], [place] [address] Sep, [facility] [address] [id number] [address] [place] [address], [place] [address] Sep, [facility] [address] [id number] [address] [place] [address], [place] [address] Aug, [facility] [address] [id number] [address] [place] [address], [place] [address] Aug, [facility] [address] [id number] [address] [place] [address], [place] [address] Aug, [facility] [address] [id number] [address] [place] [address], [place] [address] Aug, [facility] [address] [id number] [address] [place] [address], [place] [address] Aug, [facility] [address] [id number] [address] [place] [address], [place] [address] Aug, [facility] [address] [id number] [address] [place] [address], [place] [address] Aug, [facility] [address] [id number] [address] [place] [phone] Aug, [facility] [address] [id number] [address] [place] [address], [place] [address] 30 Jul, 2014 [facility] [address] [id number] [address] [place] [address], [place] [address] 30 Jul, 2014 [facility] [address] [id number] [address] [place] [address], [place] [address] 30 Jul, 2014 [facility] [address] [id number] [facility] [place] [address] 30 Jul, 2013 [facility] [address] [id number] [facility] [place] [address] 25 Jul, 2014 [facility] [address] [id number] [facility] [place] [address] 25 Jul, 2013 [facility] [address] [id number] [address] [place] [address], [place] [address] 15 Jul, 2013 [facility] [address] [id number] [facility] [place] [address] 15 Jul, 2013 [facility] [address] [id number] [address] [place] [address], [place] [address] Jul, [facility] [address] [id number] [address] [place] [address], [place] [address] Jul, [facility] [address] [id number] [address] [place] [address], [place] [address] Jun, [facility] [address] [id number] [address] [place] [address], [place] [address] Jun, [facility] [address] [id number] [address] [place] [address], [place] [address] Jun, [facility] [address] [id number] [address] [place] [address], [place] [address] Jun, [facility] [address] [id number] [address] [place] [address], [place] [address] Jun, [facility] [address] [id number] [address] [place] [address], [place] [address] Jun, [facility] [address] [id number] [address] [place] [address], [place] [address] Jun, [facility] [address] [id number] [address] [place] [address], [place] [address] Jun, [facility] [address] [id number] [address] [place] [address], [place] [address] Jun, [facility] [address] [id number] [facility] [place] [address] Jun, [facility] [address] [id number] [address] [place] [address], [place] [address] Jun, [facility] [address] [id number] [address] [place] [address], [place] [address] Jun, [facility] [address] [id number] [address] [place] [address], [place] [address] Jun, [facility] [address] [id number] [address] [place] [address], [place] [address] Jun, [facility] [address] [id number] [address] [place] [address], [place] [address] Jun, [facility] [address] [id number] [address] [place] [address], [place] [address] Jun, [facility] [address] [id number] [address] [place] [address], [place] [address] Jun, [facility] [address] [id number] [address] [place] [address], [place] [address] Jun, [facility] [address] [id number] [address] [place] [address], [place] [address] Jun, [facility] [address] [id number] [address] [place] [address], [place] [address] Jun, [facility] [address] [id number] [address] [place] [address], [place] [address] Jun, [facility] [address] [id number] [address] [place] [address], [place] [address] Jun, [facility] [address] [id number] [address] [place] [address], [place] [address] May, [facility] [address] [id number] [address] [place] [address], [place] [address] May, [facility] [address] [id number] [address] [place] [address], [place] [address] May, [facility] [address] [id number] [facility] [place] [address] May, [facility] [address] [id number] [facility] [place] [place] [address] May, [facility] [address] [id number] [facility] [place] [address] May, 2013 [facility] [address] [id number] [facility] [place] [address] May, 2013 [facility] [address] [id number] [address] [place] [address], [place] [address] May, [facility] [address] [id number] [address] [place] [address], [place] [address] May, 2013 [facility] [address] [id number] [address] [place] [address], [place] [address] May, [facility] [address] [id number] [address] [place] [address], [place] [address] May, [facility] [address] [id number] [address] [place] [address], [place] [address] May, [facility] [address] [id number] [address] [place] [address], [place] [address] May, [facility] [address] [id number] [address] [place] [address], [place] [address] Apr, [facility] [address] [id number] [address] [place] [address], [place] [address] Apr, [facility] [address] [id number] [address] [place] [address], [place] [address] Apr, [facility] [address] [id number] [address] [place] [address], [place] [address] Apr, [facility] [address] [id number] [address] [place] [address], [place] [address] Apr, [facility] [address] [id number] [facility] [place] [address] Apr, [facility] [address] [id number] [facility] [place] [address] Apr, [facility] [address] [id number] [facility] [place] [address] Apr, [facility] [address] [id number] [address] [place] [address], [place] [address] Apr, [facility] [address] [id number] [address] [place] [address], [place] [address] March, [facility] [address] [id number] [address] [place] [address], [place] [address] March, [facility] [address] [id number] [address] [place] [address], [place] [address] March, [facility] [address] [id number] [address] [place] [address], [place] [address] March, [facility] [address] [id number] [address] [place] [address], [place] [address] March, [facility] [address] [id number] [address] [place] [address], [place] [address] March, [facility] [address] [id number] [address] [place] [address], [place] [address] March, [facility] [address] [id number] [address] [place] [address], [place] [address] March, [facility] [address] [id number] [address] [place] [address], [place] [address] March, [facility] [address] [id number] [address] [place] [address], [place] [address] March, [facility] [address] [id number] [address] [place] [address], [place] [address] March, [facility] [address] [id number] [address] [place] [address], [place] [address] March, [facility] [address] [id number] [address] [place] [address], [place] [address] March, [facility] [address] [id number] [address] [place] [address], [place] [address] March, [facility] [address] [id number] [address] [place] [address], [place] [address] March, [facility] [address] [id number] [address] [place] [address], [place] [address] March, [facility] [address] [id number] [address] [place] [address], [place] [address] March, [facility] [address] [id number] [address] [place] [address], [place] [address] March, [facility] [address] [id number] [address] [place] [address], [place] [address] March, [facility] [address] [id number] [address] [place] [address], [place] [address] March, [facility] [address] [id number] [address] [place] [address], [place] [address] Feb, [facility] [address] [id number] [address] [place] [address], [place] [address] Feb, [facility] [address] [id number] [address] [place] [address], [place] [address] Feb, [facility] [address] [id number] [address] [place] [address], [place] [address] Feb, [facility] [address] [id number] [address] [place] [address], [place] [address] Feb, [facility] [address] [id number] [address] [place] [address], [place] [address] Feb, [facility] [address] [id number] [address] [place] [address], [place] [address] Feb, [facility] [address] [id number] [facility] [place] [address] 11 Feb, 2014 [facility] [address] [id number] [facility] [place] [address] Jan, [facility] [address] [id number] [facility] [place] [address] Jan, [facility] [address] [id number] [address] [place] [address], [place] [address] Jan, [facility] [address] [id number] [address] [place] [address], [place] [address] Jan, [facility] [address] [id number] [address] [place] [address], [place] [address] Jan, [facility] [address] [id number] [address] [place] [address], [place] [address] Jan, [facility] [address] [id number] [address] [place] [address], [place] [address] Jan, [facility] [address] [id number] [address] [place] [address], [place] [address] Jan, [facility] [address] [id number] [address] [place] [address], [place] [address] Jan, [facility] [address] [id number] [address] [place] [address], [place] [address] Jan, [facility] [address] [id number] [address] [place] [address], [place] [address] Dec, [facility] [address] [id number] [address] [place] [address], [place] [address] Dec, [facility] [address] [id number] [address] [place] [address], [place] [address] Dec, [facility] [address] [id number] [address] [place] [address], [place] [address] 2013 [facility] [address] [id number] [address] [place] [address], [place] [address] Dec, [facility] [address] [id number] [facility] [place] [address] Dec, [facility] [address] [id number] [address] [place] [address], [place] [address] Dec, [facility] [address] [id number] [address] [place] [address], [place] [address] Dec, [facility] [address] [id number] [address] [place] [address], [place] [address] Nov, [facility] [address] [id number] [address] [place] [address], [place] [address] Nov, [facility] [address] [id number] [address] [place] [address], [place] [address] Nov, [facility] [address] [id number] [address] [place] [address], [place] [address] Nov, [facility] [address] [id number] [address] [place] [address], [place] [address] Nov, [facility] [address] [id number] [address] [place] [address], [place] [address] Nov, [facility] [address] [id number] [address] [place] [address], [place] [address] Nov, [facility] [address] [id number] [address] [place] [address], [place] [address] Nov, [facility] [address] [id number] [address] [place] [address], [place] [address] Nov, [facility] [address] [id number] [address] [place] [address], [place] [address] Nov, [facility] [address] [id number] [address] [place] [address], [place] [address] Nov, [facility] [address] [id number] [address] [place] [address], [place] [address] Nov, [facility] [address] [id number] [address] [place] [address], [place] [address] 15 Nov, 2013 [facility] [address] [id number] [address] [place] [address], [place] [address] 30 Oct, 2013 [facility] [address] [id number] [address] [place] [address], [place] [address] 30 Oct, 2013 [facility] [address] [id number] [address] [place] [address], [place] [address] Oct, [facility] [address] [id number] [address] [place] [address], [place] [address] Oct, [facility] [address] [id number] [address] [place] [address], [place] [address] Oct, [facility] [address] [id number] [address] [place] [address], [place] [address] Oct, [facility] [address] [id number] [address] [place] [address], [place] [address] 18 Oct, 2013 [facility] [address] [id number] [address] [place] [address], [place] [address] 18 Oct, 2013 [facility] [address] [id number] [address] [place] [address], [place] [address] 17 Oct, 2013 [facility] [address] [id number] [address] [place] [address], [place] [address] 17 Oct, 2013 [facility] [address] [id number] [address] [place] [address], [place] [address] 03 Oct, 2013 [facility] [address] [id number] [address] [place] [address], [place] [address] 03 Oct, 2013 [facility] [address] [id number] [address] [place] [address], [place] [address] 02 Oct, 2013 [facility] [address] [id number] [address] [place] [address], [place] [address] 02 Oct, 2013 [facility] [address] [id number] [address] [place] [address], [place] [address] 14 Sep, 2013 [facility] [address] [id number] [address] [place] [address], [place] [address] 14 Sep, 2013 [facility] [address] [id number] [address] [place] [address], [place] [address] 05 Sep, 2013 [facility] [address] [id number] [address] [place] [address], [place] [address] 05 Sep, 2013 [facility] [address] [id number] [address] [place] [address], [place] [address] Sep, [facility] [address] [id number] [address] [place] [address], [place] [address] Sep, [facility] [address] [id number] [address] [place] [address], [place] [address] Sep, [facility] [address] [id number] [address] [place] [address], [place] [address] Sep, [facility] [address] [id number] [address] [place] [address] Sep, [facility] [address] [id number] [address] [place] [address], [place] [address] Sep, [facility] [address] [id number] [address] [place] [address] Aug, [facility] [address] [id number] [address] [place] [address] Aug, [facility] [address] [id number] [address] [place] [address] Aug, [facility] [address] [id number] [address] [place] [address] Aug, [facility] [address] [id number] [address] [place] [phone] Aug, [facility] [address] [id number] [address] [place] [address] Aug, [facility] [address] [id number] [address] [place] [id number] 23 Aug, 2013 [facility] [address] [id number] [address] [place] [address], [place] [address] 23 Aug, 2013 [facility] [address] [id number] [address] [place] [phone] 22 Aug, 2013 [facility] [address] [id number] [address] [place] [address], [place] [address] 22 Aug, 2013 [facility] [address] [id number] [address] [place] [phone] 18 Aug, 2013 [facility] [address] [id number] [address] [place] [address], [place] [address] 18 Aug, 2013 [facility] [address] [id number] [address] [place] [id number] 18 Aug, 2013 [facility] [address] [id number] [address] [place] [id number] 18 Aug, 2013 [facility] [address] [id number] [address] [place] [address], [place] [address] 17 Aug, 2013 [facility] [address] [id number] [address] [place] [id number] 14 Aug, 2013 [facility] [address] [id number] [address] [place] [phone] 14 Aug, 2013 [facility] [address] [id number] [address] [place] [phone] Aug, [facility] [address] [id number] [address] [place] [id number] 20 Jul, 2012 [facility] [address] [id number] [address] [place] [phone] 19 Jul, 2012 [facility] [address] [id number] [address] [place] [phone] 18 Jul, 2012 [facility] [address] [id number] [address] [place] [address], [place] [address] 11 Jul, 2012 [facility] [address] [id number] [facility] [place] [address] Jul, [facility] [address] [id number] [address] [place] [address], [place] [address] Jun, [facility] [address] [id number] [address] [place] [address], [place] [address] Jun, [facility] [address] [id number] [address] [place] [address], [place] [address] Jun, [facility] [address] [id number] [address] [place] [address], [place] [address] Jun, [facility] [address] [id number] [address] [place] [address], [place] [address] Jun, [facility] [address] [id number] [address] [place] [address], [place] [address] Jun, [facility] [address] [id number] [address] [place] [address], [place] [address] Jun, [facility] [address] [id number] [address] [place] [address], [place] [address] Jun, [facility] [address] [id number] [address] [place] [address], [place] [address] Jun, [facility] [address] [id number] [address] [place] [address], [place] [address] Jun, [facility] [address] [id number] [address] [place] [address], [place] [address] May, [facility] [address] [id number] [address] [place] [address], [place] [address] May, [facility] [address] [id number] [address] [place] [address], [place] [address] May, [facility] [address] [id number] [address] [place] [address], [place] [address] May, [facility] [address] [id number] [address] [place] [address], [place] [address] May, [facility] [address] [id number] [address] [place] [address], [place] [address] May, [facility] [address] [id number] [address] [place] [address], [place] [address] May, [facility] [address] [id number] [address] [place] [address], [place] [address] May, [facility] [address] [id number] [address] [place] [address], [place] [address] May, [facility] [address] [id number] [address] [place] [address], [place] [address] Apr, [facility] [address] [id number] [address] [place] [address], [place] [address] Apr, [facility] [address] [id number] [address] [place] [address], [place] [address] Apr, [facility] [address] [id number] [address] [place] [address], [place] [address] Apr, [facility] [address] [id number] [address] [place] [address], [place] [address] Apr, [facility] [address] [id number] [address] [place] [address], [place] [address] Apr, [facility] [address] [id number] [address] [place] [address], [place] [address] Apr, [facility] [address] [id number] [address] [place] [address], [place] [address] March, [facility] [address] [id number] [address] [place] [address], [place] [address] Feb, [facility] [address] [id number] [address] [place] [address], [place] [address] Feb, [facility] [address] [id number] [address] [place] [address], [place] [address] Feb, [facility] [address] [id number] [address] [place] [address], [place] [address] 28 Jan, 2013 [facility] [address] [id number] [address] [place] [address], [place] [address] 21 Jan, 2013 [facility] [address] [id number] [address] [place] [address], [place] [address] 19 Jan, 2013 [facility] [address] [id number] [address] [place] [address], [place] [address] 14 Jan, 2013 [facility] [address] [id number] [address] [place] [address], [place] [address] 12 Jan, 2013 [facility] [address] [id number] [address] [place] [address], [place] [address] 08 Jan, 2013 [facility] [address] [id number] [address] [place] [address], [place] [address] 07 Jan, 2013 [facility] [address] [id number] [address] [place] [address], [place] [address] 04 Jan, 2013 [facility] [address] [id number] [address] [place] [address], [place] [address] 28 Dec, 2012 [facility] [address] [id number] [address] [place] [address], [place] [address] 25 Dec, 2012 [facility] [address] [id number] [address] [place] [address], [place] [address] 13 Dec, 2012 [facility] [address] [id number] [address] [place] [address], [place] [address] 11 Dec, 2012 [facility] [address] [id number] [address] [place] [address], [place] [address] 07 Dec, 2012 [facility] [address] [id number] [address] [place] [address], [place] [address] 06 Dec, 2012 [facility] [address] [id number] [address] [place] [address], [place] [address] 05 Dec, 2012 [facility] [address] [id number] [address] [place] [address], [place] [address] Nov, [facility] [address] [id number] [address] [place] [address], [place] [address] Nov, [facility] [address] [id number] [address] [place] [address], [place] [address] 18 Nov, 2012 [facility] [address] [id number] [address] [place] [address], [place] [address] 15 Nov, 2012 [facility] [address] [id number] [address] [place] [address], [place] [address] Nov, [facility] [address] [id number] [address] [place] [address], [place] [address] Nov, [facility] [address] [id number] [address] [place] [address], [place] [address] Nov, [facility] [address] [id number] [address] [place] [address], [place] [address] Oct, [facility] [address] [id number] [address] [place] [address], [place] [address] Oct, [facility] [address] [id number] [address] [place] [address], [place] [address] Oct, [facility] [address] [id number] [address] [place] [address], [place] [address] Oct, [facility] [address] [id number] [address] [place] [address], [place] [address] Oct, [facility] [address] [id number] [address] [place] [address], [place] [address] 17 Oct, 2012 [facility] [address] [id number] [address] [place] [address], [place] [address] Oct, [facility] [address] [id number] [address] [place] [address], [place] [address] 07 Oct, 2012 [facility] [address] [id number] [address] [place] [address], [place] [address] 05 Oct, 2012 [facility] [address] [id number] [address] [place] [address], [place] [address] Oct, [facility] [address] [id number] [address] [place] [address], [place] [address] Oct, [facility] [address] [id number] [address] [place] [address], [place] [address] Oct, [facility] [address] [id number] [address] [place] [address], [place] [address] Sep, [facility] [address] [id number] [address] [place] [address], [place] [address] Sep, [facility] [address] [id number] [address] [place] [address], [place] [address] Sep, [facility] [address] [id number] [address] [place] [address], [place] [address] Sep, [facility] [address] [id number] [address] [place] [address], [place] [address] Sep, [facility] [address] [id number] [address] [place] [address], [place] [address] Sep, [facility] [address] [id number] [address] [place] [address], [place] [address] Sep, [facility] [address] [id number] [address] [place] [address], [place] [address] Sep, [facility] [address] [id number] [address] [place] [address], [place] [address] Sep, [facility] [address] [id number] [address] [place] [address] Sep, [facility] [address] [id number] [address] [place] [address], [place] [address] Sep, [facility] [address] [id number] [address] [place] [address], [place] [address] Aug, [facility] [address] [id number] [address] [place] [address], [place] [address] Aug, [facility] [address] [id number] [address] [place] [address], [place] [address] Aug, [facility] [address] [id number] [address] [place] [address], [place] [address] Aug, [facility] [address] [id number] [address] [place] [address], [place] [address] Aug, [facility] [address] [id number] [address] [place] [address], [place] [address] Aug, [facility] [address] [id number] [address] [place] [address], [place] [address] Aug, [facility] [address] [id number] [address] [place] [address], [place] [address] Aug, [facility] [address] [id number] [address] [place] [address], [place] [address] Aug, [facility] [address] [id number] [address] [place] [address], [place] [address] Aug, [facility] [address] [id number] [address] [place] [address], [place] [address] 22 Jul, 2012 [facility] [address] [id number] [address] [place] [address], [place] [address] 20 Jul, 2012 [facility] [address] [id number] [address] [place] [address], [place] [address] 10 Jul, 2012 [facility] [address] [id number] [address] [place] [address], [place] [address] 06 Jul, 2012 [facility] [address] [id number] [address] [place] [address], [place] [address] 30 Jun, 2012 [facility] [address] [id number] [address] [place] [address], [place] [address] Jun, [facility] [address] [id number] [address] [place] [address], [place] [address] 16 Jun, 2012 [facility] [address] [id number] [address] [place] [address], [place] [address] Jun, [facility] [address] [id number] [facility] [place] [address] Jun, [facility] [address] [id number] [address] [place] [address], [place] [address] Jun, [facility] [address] [id number] [address] [place] [address], [place] [address] Jun, [facility] [address] [id number] [address] [place] [address], [place] [address] May, [facility] [address] [id number] [address] [place] [address], [place] [address] May, [facility] [address] [id number] [address] [place] [address], [place] [address] May, [facility] [address] [id number] [address] [place] [address], [place] [address] May, [facility] [address] [id number] [address] [place] [address], [place] [address] May, [facility] [address] [id number] [address] [place] [address], [place] [address] Apr, [facility] [address] [id number] [address] [place] [address], [place] [address] Apr, [facility] [address] [id number] [address] [place] [address], [place] [address] Apr, [facility] [address] [id number] [address] [place] [address], [place] [address] Apr, [facility] [address] [id number] [address] [place] [address], [place] [address] Apr, [facility] [address] [id number] [address] [place] [address], [place] [address] March, [facility] [address] [id number] [address] [place] [address], [place] [address] March, [facility] [address] [id number] [address] [place] [address], [place] [address] March, [facility] [address] [id number] [address] [place] [address], [place] [address] March, [facility] [address] [id number] [address] [place] [address], [place] [address] March, [facility] [address] [id number] [address] [place] [address], [place] [address] March, [facility] [address] [id number] [address] [place] [address], [place] [address] March, [facility] [address] [id number] [address] [place] [address], [place] [address] March, [facility] [address] [id number] [address] [place] [address], [place] [address] March, [facility] [address] [id number] [address] [place] [address], [place] [address] March, [facility] [address] [id number] [address] [place] [address], [place] [address] Feb, [facility] [address] [id number] [address] [place] [address], [place] [address] Feb, [facility] [address] [id number] [address] [place] [place] [address], [place] [address] Feb, [facility] [address] [id number] [address] [place] [address], [place] [address] Feb, [facility] [address] [id number] [address] [place] [address], [place] [address] 17 Feb, 2012 [facility] [address] [id number] [address] [place] [address], [place] [address] Feb, [facility] [address] [id number] [address] [place] [address], [place] [address] Feb, [facility] [address] [id number] [address] [place] [address], [place] [address] Feb, [facility] [address] [id number] [address] [place] [address], [place] [address] Feb, [facility] [address] [id number] [address] [place] [address], [place] [address] Jan, [facility] [address] [id number] [address] [place] [address], [place] [address] Jan, [facility] [address] [id number] [address] [place] [address], [place] [address] Jan, [facility] [address] [id number] [address] [place] [address], [place] [address] Jan, [facility] [address] [id number] [address] [place] [address], [place] [address] Dec, [facility] [address] [id number] [address] [place] [address], [place] [address] Dec, [facility] [address] [id number] [address] [place] [address], [place] [address] Nov, [facility] [address] [id number] [address] [place] [address], [place] [address] Nov, [facility] [address] [id number] [address] [place] [address], [place] [address] Nov, [facility] [address] [id number] [address] [place] [address], [place] [address] Nov, [facility] [address] [id number] [address] [place] [address], [place] [address] Nov, [facility] [address] [id number] [address] [place] [address], [place] [address] Oct, [facility] [address] [id number] [address] [place] [address], [place] [address] Oct, [facility] [address] [id number] [address] [place] [address], [place] [address] Oct, [facility] [address] [id number] [address] [place] [phone] Oct, [facility] [address] [facility] [id number] [address] [place] [phone] Oct, [facility] [address] [facility] [id number] [address] [place] [phone] Oct, [facility] [address] [facility] [id number] [address] [place] [phone] Oct, [facility] [address] [facility] [id number] [address] [place] [phone] Oct, [facility] [address] [facility] [id number] [address] [place] [phone] Sep, IMMUNIZATIONS No Known Immunizations SOCIAL HISTORY [...] History No Surgical history information Hospitalization History [facility]- Urosepsis, ab d pain and fever, discharged 11/27/2017 11/26/2017 Hospitalization History [facility]- Went Unrepsonsive, Hit head 2017 Hospitalization History [facility]- Back Pain 05/05/201 8
--- OUTSIDE RECORDS SUMMARY | 2020-06-18 14:49 | XMS REPORT ---
Author Author Sanjuanita Abdul Doctor Organization [facility] Address Unknown Phone Unavailable Care Team Providers Care Seamer Elastic Band Name Role Phone Migration, Doctor Unavailable Unavailable PROBLEMS Type Condition ICD9-CM Code EFC08-KQ Code Onset Dates Condition S tatus SNOMED Code Problem Hypertension I10 Active 9809687 3 Problem Hyperlipidemia E78.5 Active 99262 004 Problem Coronary artery disease I25.10 Active 80219200 Problem Low back pain M54.5 Active 238813 009 Problem Other chronic pain G89.29 Active 8 4981611 Problem Ventral hernia without obstruction or gangrene K43 .9 Active 490744740 Problem Type 2 diabetes mellitus wit hout complication, without long-term current use of insulin E11.9 Active 408356434 Problem Anxiety F41.9 Active 32132686 Problem Peripheral vascular disease I73.9 Ac tive 375329226 Problem Insomnia G47.00 Active 176852054 Problem Microcytic anemia D50.9 Active 23 1364137 Problem Pharyngeal dysphagia R13.13 Active 10956361007002 Problem Other iron deficiency anemia D50.8 A ctive 13548540 Problem Reactive depression F32.9 Active 50986973 Problem Paroxysmal atrial fibrillation I48.0 Active 822943805 Problem 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 Active 45315151 Problem Encounter for suprapubic catheter care Z43.5 Active 845265436 Problem Neurogenic bladder N31.9 Active 3 [id number] ALLERGIES No Information ENCOUNTERS Encounter Location Date Diagnosis [facility] [address] [id number] [address] [place] [id number] Jan, Anxiety F41.9 and Strain of right shoulder, subsequent encounter S46.911D [facility] [address] [id number] [address] [place] [id number] Jan, [facility] [address] [place] [id number] Jan, Neurogenic bladder N31.9 [facility] [address] [id number] [address] [place] [id number] Dec, [place] [address] [id number] [address] [place] [id number] Dec, [place] [address] [id number] [address] [place] [id number] Dec, Anxiety F41.9 and Strain of right shoulder, subsequent encounter S46.911D [place] [address] [id number] [address] [place] [id number] 10 Dec, 2019 Other iron deficiency anemia D50.8 [place] [address] [id number] [address] [place] [id number] 04 Dec, 2019 [facility] [address] [place] [id number] Dec, Encounter for suprapubic catheter care Z 43.5 and Microcytic anemia D50.9 [place] [address] [id number] [address] [place] [id number] Dec, [place] [address] [id number] [address] [place] [id number] Nov, Anxiety F41.9 and Strain of right shoulder, subsequent encounter S46.911D [place] [address] [id number] [address] [place] [id number] Nov, Hypertension I10 [facility] [address] [place] [id number] Nov, Pneumonia of both lungs due to infectiou s organism, unspecified part of lung J18.9 and Suprapubic catheter Z93.59 [place] [address] [id number] [address] [place] [id number] Nov, Hypertension I10 and Reactiv e depression F32.9 [place] [address] [id number] [address] [place] [id number] Oct, Strain of right shoulder, scherer bsequent encounter S46.911D and Anxiety F41.9 [facility] [address] [id number] [address] [place] [id number] 16 Oct, 2019 Via [facility] [address] [place] [id number] Oct, Suprapubic catheter Z93.59 and Candidias is, intertriginous B37.2 [facility] [address] [id number] [address] [place] [id number] Oct, Suprapubic catheter Z93.59 [facility] [address] [id number] [address] [place] [id number] Oct, Anxiety F41.9 and Strain of right shoulder, subsequent encounter S46.911D [facility] [address] [id number] [address] [place] [id number] Sep, [facility] [address] [id number] [address] [place] [id number] Sep, [facility] [address] [id number] [address] [place] [id number] Sep, Via [facility] [address] [place] [id number] Sep, Suprapubic catheter Z93.59 [facility] [address] [id number] [address] [place] [id number] Sep, Anxiety F41.9 and Strain of right shoulder, subsequent encounter S46.911D [facility] [address] [id number] [address] [place] [id number] Aug, [facility] [address] [id number] [address] [place] [id number] Aug, [facility] [address] [id number] [address] [place] [id number] Aug, Anxiety F41.9 and Strain of right shoulder, subsequent encounter S46.911D [facility] [address] [place] [id number] Aug, Suprapubic catheter Z93.59 [facility] [address] [id number] [address] [place] [id number] Jul, Strain of right shoulder, scherer bsequent encounter S46.911D and Anxiety F41.9 [facility] [address] [id number] [address] [place] [id number] Jul, Anxiety F41.9 [place] [address] [id number] [address] [place] [id number] Jun, [place] [address] [id number] [address] [place] [id number] Jun, [place] [address] [id number] [address] [place] [id number] Jun, [place] [address] [id number] [address] [place] [id number] Jun, Strain of right shoulder, scherer bsequent encounter S46.911D [place] [address] [id number] [address] [place] [id number] Jun, Strain of right shoulder, scherer bsequent encounter S46.911D [place] [address] [id number] [address] [place] [id number] Jun, Anxiety F41.9 [facility] [address] [place] [id number] Jun, Neurogenic bladder N31.9 and Anxiety F41 .9 [facility] [address] [place] [id number] May, Anxiety F41.9 [place] [address] [id number] [address] [place] [id number] May, Dysuria R30.0 [place] [address] [id number] [address] [place] [id number] May, Strain of right shoulder, scherer bsequent encounter S46.911D and Anxiety F41.9 [place] [address] [id number] [address] [place] [id number] 27 Apr, 2019 Via [facility] [address] [place] [id number] 18 Apr, 2019 Strain of right shoulder, subsequent enc ounter S46.911D [facility] [address] [id number] [address] [place] [id number] 14 Apr, 2019 Strain of right shoulder, scherer bsequent encounter S46.911D and Anxiety F41.9 Via [facility] [address] [place] [id number] Apr, Type 2 diabetes mellitus without complic ation, without long-term current use of insulin E11.9 and Neurogenic bladder N31.9 [facility] [address] [place] [id number] Apr, Strain of right shoulder, subsequent enc ounter S46.911D ; History of GI bleed Z87.19 ; Neurogenic bladder N31.9 and Reactive depression F32.9 [place] [address] [id number] [address] [place] [id number] Apr, Acute pain of left shoulder M25.512 [place] [address] [id number] [address] [place] [id number] Apr, [place] [address] [id number] [address] [place] [id number] Apr, Anxiety F41.9 and 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 [facility] [address] [place] [id number] March, Gastrointestinal hemorrhage associated w ith acute gastritis K29.01 [place] [address] [id number] [address] [place] [id number] March, Via [facility] [address] [place] [id number] March, Bronchitis J40 [place] [address] [id number] [address] [place] [phone] March, Cough R05 [place] [address] [id number] [address] [place] [id number] March, Other chronic pain G89.29 [facility] [address] [id number] [address] [place] [id number] March, Anxiety F41.9 [facility] [address] [id number] [address] [place] [id number] March, [facility] [address] [id number] [address] [place] [id number] Feb, Other chronic pain G89.29 [facility] [address] [id number] [address] [place] [id number] Feb, Anxiety F41.9 [facility] [address] [id number] [address] [place] [id number] Feb, Other chronic pain G89.29 [facility] [address] [place] [id number] Feb, Neurogenic bladder N31.9 and Suprapubic catheter Z93.59 [facility] [address] [id number] [address] [place] [id number] Jan, Anxiety F41.9 [facility] [address] [id number] [address] [place] [id number] Dec, Anxiety F41.9 [facility] [address] [id number] [address] [place] [id number] Dec, Other chronic pain G89.29 an d Anxiety F41.9 [facility] [address] [id number] [address] [place] [id number] Dec, Via [facility] [address] [place] [id number] Dec, Neurogenic bladder N31.9 and Suprapubic catheter Z93.59 [facility] [address] [id number] [address] [place] [id number] Nov, Other chronic pain G89.29 an d Anxiety F41.9 [facility] [address] [id number] [address] [place] [id number] Nov, Via [facility] [facility] [address] [place] [id number] Nov, Suprapubic catheter Z93.59 [facility] [address] [id number] [address] [place] [id number] Oct, Other chronic pain G89.29 an d Anxiety F41.9 [facility] [address] [id number] [address] [place] [id number] Oct, [facility] [address] [id number] [address] [place] [id number] Oct, Suprapubic catheter Z93.59 [facility] [address] [id number] [address] [place] [id number] Oct, Via [facility] [address] [place] [id number] Oct, [facility] [address] [id number] [address] [place] [id number] Oct, Anxiety F41.9 [facility] [address] [id number] [address] [place] [id number] Oct, Anxiety F41.9 [facility] [address] [place] [id number] Oct, Other chronic pain G89.29 [facility] [address] [id number] [address] [place] [id number] Sep, Other chronic pain G89.29 [facility] [address] [place] [id number] Sep, Suprapubic catheter Z93.59 and Cervicalg ia M54.2 [facility] [address] [id number] [address] [place] [id number] Sep, [facility] [address] [id number] [address] [place] [id number] Sep, [facility] [address] [id number] [address] [place] [id number] Sep, Via [facility] [address] [place] [id number] Aug, Cystitis N30.90 [facility] [address] [id number] [address] [place] [id number] Aug, [facility] [address] [id number] [address] [place] [id number] Aug, Other chronic pain G89.29 [facility] [address] [id number] [address] [place] [id number] Aug, Via [facility] [address] [place] [id number] Aug, Encounter for suprapubic catheter care Z 43.5 [facility] [address] [id number] [address] [place] [id number] Jul, Via [facility] [address] [place] [id number] Jul, [facility] [address] [id number] [address] [place] [id number] Jul, Other chronic pain G89.29 [facility] [address] [id number] [address] [place] [id number] Jul, [facility] [address] [id number] [address] [place] [id number] Jul, Via [facility] [address] [place] [id number] Jun, 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 [facility] [address] [id number] [address] [place] [id number] Jun, Other chronic pain G89.29 [facility] [address] [id number] [address] [place] [id number] Jun, Via [facility] [address] [place] [id number] May, Anxiety F41.9 ; Type 2 diabetes mellitus without complication, without long-term current use of insulin E11.9 ; Hypertension I10 ; Low back pain M54.5 ; Paroxysmal atrial fibrillation I48.0 and 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 [facility] [address] [id number] [address] [place] [id number] May, Other chronic pain G89.29 [facility] [address] [place] [id number] May, Low back pain M54.5 [facility] [address] [id number] [address] [place] [id number] May, [facility] [address] [id number] [address] [place] [id number] Apr, Other chronic pain G89.29 [facility] [address] [id number] [address] [place] [id number] Apr, [facility] [address] [id number] [address] [place] [id number] Apr, Via [facility] [address] [place] [id number] Apr, Closed compression fracture of L3 lumbar vertebra with routine healing, subsequent encounter S32.030D [facility] [address] [place] [id number] Apr, Low back pain M54.5 Via [facility] [address] [place] [id number] Apr, Coccydynia M53.3 [facility] [address] [id number] [address] [place] [id number] March, [facility] [address] [id number] [address] [place] [id number] March, Other chronic pain G89.29 [facility] [address] [id number] [address] [place] [id number] March, [facility] [address] [id number] [address] [place] [id number] March, [facility] [address] [id number] [address] [place] [id number] Feb, [facility] [address] [id number] [address] [place] [id number] Feb, Other chronic pain G89.29 [facility] [address] [place] [id number] Feb, Other chronic pain G89.29 and Anxiety F4 1.9 [facility] [address] [id number] [address] [place] [id number] Feb, [facility] [address] [id number] [address] [place] [id number] Jan, [facility] [address] [id number] [address] [place] [id number] Jan, [facility] [address] [id number] [address] [place] [id number] Jan, [facility] [address] [id number] [address] [place] [phone] Jan, [facility] [address] [id number] [address] [place] [id number] Dec, [facility] [address] [place] [id number] Dec, Peripheral vascular disease I73.9 ; 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 ; Other chronic pain G89.29 ; Anxiety F41.9 ; Reactive depression F32.9 ; Insomnia G47.00 and Type 2 diabetes mellitus without complication, without long-term current use of insulin E11.9 [facility] [place] [address] [id number] [address] Nov, [facility] [address] [id number] [place] [id number] Nov, Anxiety F41.9 [facility] [address] [id number] [address] [place] [id number] Nov, [facility] [address] [id number] [place] [id number] Nov, Anxiety F41.9 [facility] [address] [place] [id number] Nov, Status post surgery Z98.890 ; Confused R 41.0 ; Anxiety F41.9 and Other chronic pain G89.29 [facility] [address] [id number] [place] [id number] Nov, Other chronic pain G89.29 [facility] [address] [id number] [address] [place] [id number] Oct, [facility] [address] [id number] [place] [id number] Oct, Other chronic pain G89.29 [facility] [address] [id number] [address] [place] [id number] Oct, Anxiety F41.9 [facility] [address] [id number] [place] [id number] Sep, Other chronic pain G89.29 [facility] [address] [id number] [place] [id number] Sep, Via [facility] [address] [place] [id number] Aug, Dysuria R30.0 and Anxiety F41.9 [facility] [address] [id number] [address] [place] [id number] Aug, [facility] [address] [id number] [place] [id number] Aug, Other chronic pain G89.29 [facility] [address] [id number] [address] [place] [id number] Jul, Other chronic pain G89.29 [facility] [address] [id number] [place] [id number] Jun, [facility] [address] [id number] [place] [id number] Jun, Other chronic pain G89.29 [facility] [address] [id number] [address] [place] [phone] Jun, [facility] [address] [id number] [address] [place] [id number] May, Other chronic pain G89.29 [facility] [address] [id number] [address] [place] [id number] Apr, Other chronic pain G89.29 Via [facility] [address] [place] [id number] Apr, Reactive depression F32.9 and Pharyngeal dysphagia R13.13 [facility] [address] [id number] [address] [place] [id number] Apr, Urinary tract infection with out hematuria, site unspecified N39.0 [facility] [address] [id number] [address] [place] [id number] March, Other chronic pain G89.29 [facility] [address] [id number] [address] [place] [phone] Feb, Other chronic pain G89.29 [facility] [address] [id number] [address] [place] [id number] Feb, [facility] [address] [id number] [place] [id number] Feb, Via [facility] [address] [place] [id number] Feb, Dysuria R30.0 and Ventral hernia without obstruction or gangrene K43.9 [facility] [address] [id number] [address] [place] [id number] Jan, Other chronic pain G89.29 [facility] [address] [id number] [place] [id number] Dec, Other chronic pain G89.29 [facility] [address] [id number] [address] [place] [id number] Nov, Other chronic pain G89.29 [facility] [address] [place] [id number] Nov, Lymphadenitis I88.9 [facility] [address] [id number] [address] [place] [id number] Nov, Other chronic pain G89.29 [facility] [address] [id number] [address] [place] [id number] Nov, [facility] [address] [id number] [place] [id number] Nov, Other chronic pain G89.29 [facility] [address] [place] [id number] Oct, Low back pain M54.5 ; Hypertension I10 a nd Type 2 diabetes mellitus without complication, without long-term current use of insulin E11.9 [facility] [address] [id number] [address] [place] [id number] Oct, [facility] [address] [id number] [address] [place] [id number] Oct, [facility] [address] [id number] [address] [place] [phone] Oct, [facility] [address] [id number] [address] [place] [phone] Oct, [facility] [address] [id number] [address] [place] [id number] Sep, [facility] [address] [id number] [address] [place] [id number] Sep, [facility] [address] [facility] [id number] [address] [place] [phone] Aug, Other chronic pain G89.29 [facility] [address] [id number] [address] [place] [id number] Jul, [facility] [address] [id number] [address] [place] [id number] Jul, [facility] [address] [id number] [address] [place] [phone] Jul, [facility] [address] [id number] [address] [place] [id number] Jun, [facility] [address] [id number] [address] [place] [id number] Jun, [facility] [address] [place] [id number] Jun, Low back pain M54.5 ; Other chronic pain G89.29 and Coronary artery disease I25.10 [facility] [address] [id number] [address] [place] [id number] Jun, [facility] [address] [id number] [address] [place] [phone] May, [facility] [address] [id number] [address] [place] [id number] May, [facility] [address] [id number] [address] [place] [id number] May, Other chronic pain G89.29 [facility] [address] [id number] [address] [place] [phone] May, [facility] [address] [id number] [address] [place] [id number] Apr, [facility] [address] [id number] [address] [place] [id number] 17 Apr, 2016 Acute cystitis without hemat uria N30.00 [facility] [address] [id number] 50 [place] [address] 16 Apr, 2016 Acute cystitis without hemat uria N30.00 ; Coronary artery disease I25.10 ; Low back pain M54.5 and Other chronic pain G89.29 [facility] [address] [id number] [address] [place] [id number] 13 Apr, 2016 Other chronic pain G89.29 [facility] [address] [id number] [address] [place] [address] March, Other chronic pain G89.29 [facility] [address] [id number] [address] [place] [id number] 18 Feb, 2016 [facility] [address] [id number] [address] [place] [address] 15 Feb, 2016 Arthritis M19.90 [facility] [address] [id number] [address] [place] [address] Feb, [facility] [address] [id number] [address] [place] [address] 30 Jan, 2016 [facility] [address] [id number] [address] [place] [address] Jan, [facility] [address] [id number] [address] [place] [address] Jan, Other chronic pain G89.29 [facility] [address] [id number] [address] [place] [address] Jan, Hypertension I10 ; Coronary artery disease I25.10 and Insomnia G47.00 [facility] [address] [facility] [id number] [address] [place] [address] Jan, [facility] [address] [id number] [address] [place] [address] Dec, Right hip pain M25.551 [facility] [address] [id number] [address] [place] [id number] Dec, [facility] [address] [facility] [id number] [address] [place] [address] Dec, [facility] [address] [facility] [id number] [address] [place] [address] Dec, [facility] [address] [id number] [address] [place] [address] Dec, Other chronic pain G89.29 [facility] [address] [id number] [address] [place] [address] Dec, [facility] [address] [id number] [address] [place] [address] Nov, [facility] [address] [id number] [address] [place] [address] Nov, Other chronic pain G89.29 [facility] [address] [id number] [address] [place] [address] Nov, Right hip pain M25.551 and C oronary artery disease I25.10 [facility] [address] [id number] [address] [place] [address] Nov, Other chronic pain G89.29 [facility] [address] [id number] [address] [place] [address] Oct, [facility] [address] [id number] [address] [place] [address] Oct, [facility] [address] [id number] [address] [place] [id number] Sep, [facility] [address] [id number] [address] [place] [phone] Sep, [facility] [address] [id number] [address] [place] [address] Aug, [facility] [address] [id number] [address] [place] [id number] Aug, Hypertension I10 ; Coronary artery disease I25.10 and Arthritis M19.90 [facility] [address] [id number] [address] [place] [id number] Jun, [facility] [address] [id number] [address] [place] [address] Jun, Essential hypertension, jayson gn 401.1 ; Other chronic pain 338.29 and Chronic airway obstruction, not elsewhere classified 496 [facility] [address] [id number] [address] [place] [address], [place] [address] Jun, [facility] [address] [id number] [address] [place] [address], [place] [address] Jun, [facility] [address] [id number] [address] [place] [address], [place] [address] Jun, [facility] [address] [id number] [address] [place] [address], [place] [address] May, [facility] [address] [id number] [address] [place] [address], [place] [address] May, [facility] [address] [id number] [address] [place] [address], [place] [address] Apr, [facility] [address] [id number] [address] [place] [address], [place] [address] Apr, [facility] [address] [id number] [address] [place] [address], [place] [address] Apr, [facility] [address] [id number] [address] [place] [address], [place] [address] March, [facility] [address] [id number] [address] [place] [phone] March, [facility] [address] [id number] [address] [place] [address], [place] [address] March, [facility] [address] [id number] [address] [place] [address] March, [facility] [address] [id number] [address] [place] [address] March, Sialadenitis 527.2 [facility] [address] [id number] [address] [place] [id number] Feb, [facility] [address] [id number] [address] [place] [id number] Feb, [facility] [address] [id number] [address] [place] [address], [place] [address] 29 Feb, 2015 [facility] [address] [id number] [address] [place] [address], [place] [address] 14 Feb, 2015 [facility] [address] [id number] [address] [place] [address], [place] [address] Feb, [facility] [address] [id number] [address] [place] [address], [place] [address] Jan, [facility] [address] [id number] [address] [place] [address], [place] [address] Jan, [facility] [address] [id number] [address] [place] [address], [place] [address] Jan, [facility] [address] [id number] [address] [place] [address], [place] [address] Jan, [facility] [address] [id number] [address] [place] [address], [place] [address] Jan, [facility] [address] [id number] [address] [place] [address], [place] [address] Jan, [facility] [address] [id number] [address] [place] [address], [place] [address] Dec, 2014 [facility] [address] [id number] [address] [place] [address], [place] [address] Dec, 2014 [facility] [address] [id number] [address] [place] [address], [place] [address] Dec, 2014 [facility] [address] [id number] [address] [place] [address], [place] [address] Dec, 2014 [facility] [address] [id number] [address] [place] [address], [place] [address] Dec, 2014 [facility] [address] [id number] [address] [place] [address], [place] [address] Dec2014 [facility] [address] [id number] [address] [place] [address], [place] [address] Nov, [facility] [address] [id number] [address] [place] [address], [place] [address] Nov, [facility] [address] [id number] [address] [place] [address], [place] [address] Nov, [facility] [address] [id number] [address] [place] [address], [place] [address] Nov, [facility] [address] [id number] [address] [place] [address], [place] [address] Nov, [facility] [address] [id number] [address] [place] [address], [place] [address] Nov, [facility] [address] [id number] [address] [place] [address], [place] [address] Nov, [facility] [address] [id number] [address] [place] [address], [place] [address] Nov, [facility] [address] [id number] [address] [place] [address], [place] [address] Nov, [facility] [address] [id number] [address] [place] [address], [place] [address] Nov, [facility] [address] [id number] [address] [place] [address], [place] [address] Nov, [facility] [address] [id number] [address] [place] [address], [place] [address] Nov, [facility] [address] [id number] [address] [place] [address], [place] [address] Nov, [facility] [address] [id number] [address] [place] [address], [place] [address] Nov, [facility] [address] [id number] [address] [place] [address], [place] [address] Oct, [facility] [address] [id number] [address] [place] [address], [place] [address] 19 Oct, 2014 [facility] [address] [id number] [address] [place] [address], [place] [address] 19 Oct, 2014 [facility] [address] [id number] [address] [place] [address], [place] [address] 18 Oct, 2014 [facility] [address] [id number] [address] [place] [address], [place] [address] 18 Oct, 2014 [facility] [address] [id number] [address] [place] [address], [place] [address] Oct, [facility] [address] [id number] [address] [place] [address], [place] [address] 17 Oct, 2014 [facility] [address] [id number] [address] [place] [address], [place] [address] Oct, [facility] [address] [id number] [address] [place] [address], [place] [address] Oct, [facility] [address] [id number] [address] [place] [address], [place] [address] Sep, [facility] [address] [id number] [address] [place] [address], [place] [address] Sep, [facility] [address] [id number] [address] [place] [address], [place] [address] Sep, [facility] [address] [id number] [address] [place] [address], [place] [address] Sep, [facility] [address] [id number] [address] [place] [address], [place] [address] Sep, [facility] [address] [id number] [address] [place] [address], [place] [address] Sep, [facility] [address] [id number] [address] [place] [address], [place] [address] Sep, [facility] [address] [id number] [address] [place] [address], [place] [address] Sep, [facility] [address] [id number] [address] [place] [address], [place] [address] Sep, [facility] [address] [id number] [address] [place] [address], [place] [address] Sep, [facility] [address] [id number] [address] [place] [address], [place] [address] Sep, [facility] [address] [id number] [address] [place] [address], [place] [address] Sep, [facility] [address] [id number] [address] [place] [address], [place] [address] Aug, [facility] [address] [id number] [address] [place] [address], [place] [address] Aug, [facility] [address] [id number] [address] [place] [address], [place] [address] Aug, [facility] [address] [id number] [address] [place] [address], [place] [address] Aug, [facility] [address] [id number] [address] [place] [address], [place] [address] Aug, [facility] [address] [id number] [address] [place] [address], [place] [address] Aug, [facility] [address] [id number] [address] [place] [address], [place] [address] Aug, [facility] [address] [id number] [address] [place] [address], [place] [address] Aug, [facility] [address] [id number] [address] [place] [address], [place] [address] 30 Jul, 2014 [facility] [address] [id number] [address] [place] [address], [place] [address] 30 Jul, 2014 [facility] [address] [id number] [address] [place] [address], [place] [address] 30 Jul, 2013 [facility] [address] [id number] [address] [place] [address], [place] [address] 30 Jul, 2014 [facility] [address] [id number] [address] [place] [address], [place] [address] Jul, [facility] [address] [id number] [address] [place] [address], [place] [address] Jul, [facility] [address] [id number] [address] [place] [address], [place] [address] 15 Jul, 2014 [facility] [address] [id number] [address] [place] [address], [place] [address] 15 Jul, 2014 [facility] [address] [id number] [address] [place] [address], [place] [address] Jul, [facility] [address] [id number] [address] [place] [address], [place] [address] Jul, [facility] [address] [id number] [address] [place] [address], [place] [address] Jun, [facility] [address] [id number] [address] [place] [address], [place] [address] Jun, [facility] [address] [id number] [address] [place] [address], [place] [address] Jun, [facility] [address] [id number] [address] [place] [address], [place] [address] Jun, [facility] [address] [id number] [address] [place] [address], [place] [address] Jun, [facility] [address] [id number] [address] [place] [address], [place] [address] Jun, [facility] [address] [id number] [address] [place] [address], [place] [address] Jun, [facility] [address] [id number] [address] [place] [address], [place] [address] Jun, [facility] [address] [id number] [address] [place] [address], [place] [address] Jun, [facility] [address] [id number] [address] [place] [address], [place] [address] Jun, [facility] [address] [id number] [address] [place] [address], [place] [address] Jun, [facility] [address] [id number] [address] [place] [address], [place] [address] Jun, [facility] [address] [id number] [address] [place] [address], [place] [address] Jun, [facility] [address] [id number] [address] [place] [address], [place] [address] Jun, [facility] [address] [id number] [address] [place] [address], [place] [address] Jun, [facility] [address] [id number] [address] [place] [address], [place] [address] Jun, [facility] [address] [id number] [address] [place] [address], [place] [address] Jun, [facility] [address] [id number] [address] [place] [address], [place] [address] Jun, [facility] [address] [id number] [address] [place] [address], [place] [address] Jun, [facility] [address] [id number] [address] [place] [address], [place] [address] Jun, [facility] [address] [id number] [address] [place] [address], [place] [address] Jun, [facility] [address] [id number] [address] [place] [address], [place] [address] Jun, [facility] [address] [id number] [address] [place] [address], [place] [address] May, [facility] [address] [id number] [address] [place] [address], [place] [address] May, [facility] [address] [id number] [address] [place] [address], [place] [address] May, [facility] [address] [id number] [facility] [place] [address] May, 2013 [facility] [address] [id number] [facility] [place] [address] May, [facility] [address] [id number] [facility] [place] [address] May, 2013 [facility] [address] [id number] [facility] [place] [address] May, 2013 [facility] [address] [id number] [facility] [place] [address] May, 2013 [facility] [address] [id number] [facility] [place] [address] May, [facility] [address] [id number] [address] [place] [address], [place] [address] May, [facility] [address] [id number] [address] [place] [address], [place] [address] May, [facility] [address] [id number] [address] [place] [address], [place] [address] May, [facility] [address] [id number] [address] [place] [address], [place] [address] May, [facility] [address] [id number] [address] [place] [address], [place] [address] Apr, [facility] [address] [id number] [address] [place] [address], [place] [address] Apr, [facility] [address] [id number] [address] [place] [address], [place] [address] Apr, [facility] [address] [id number] [address] [place] [address], [place] [address] Apr, [facility] [address] [id number] [address] [place] [address], [place] [address] Apr, [facility] [address] [id number] [address] [place] [address], [place] [address] Apr, [facility] [address] [id number] [facility] [place] [address] Apr, [facility] [address] [id number] [facility] [place] [address] Apr, [facility] [address] [id number] [facility] [place] [address] Apr, [facility] [address] [id number] [address] [place] [address], [place] [address] March, [facility] [address] [id number] [address] [place] [address], [place] [address] March, [facility] [address] [id number] [address] [place] [address], [place] [address] March, [facility] [address] [id number] [address] [place] [address], [place] [address] March, [facility] [address] [id number] [address] [place] [address], [place] [address] March, [facility] [address] [id number] [address] [place] [address], [place] [address] March, [facility] [address] [id number] [address] [place] [address], [place] [address] March, [facility] [address] [id number] [address] [place] [address], [place] [address] March, [facility] [address] [id number] [address] [place] [address], [place] [address] March, [facility] [address] [id number] [address] [place] [address], [place] [address] March, [facility] [address] [id number] [address] [place] [address], [place] [address] March, [facility] [address] [id number] [address] [place] [address], [place] [address] March, [facility] [address] [id number] [address] [place] [address], [place] [address] March, [facility] [address] [id number] [address] [place] [address], [place] [address] March, [facility] [address] [id number] [address] [place] [address], [place] [address] March, [facility] [address] [id number] [address] [place] [address], [place] [address] March, [facility] [address] [id number] [address] [place] [address], [place] [address] March, [facility] [address] [id number] [address] [place] [address], [place] [address] March, [facility] [address] [id number] [address] [place] [address], [place] [address] March, [facility] [address] [id number] [address] [place] [address], [place] [address] March, [facility] [address] [id number] [address] [place] [address], [place] [address] Feb, [facility] [address] [id number] [address] [place] [address], [place] [address] Feb, [facility] [address] [id number] [address] [place] [address], [place] [address] Feb, [facility] [address] [id number] [address] [place] [address], [place] [address] Feb, [facility] [address] [id number] [address] [place] [address], [place] [address] Feb, [facility] [address] [id number] [address] [place] [address], [place] [address] Feb, [facility] [address] [id number] [address] [place] [address], [place] [address] Feb, [facility] [address] [id number] [address] [place] [address], [place] [address] Feb, [facility] [address] [id number] [facility] [place] [address] Jan, [facility] [address] [id number] [facility] [place] [address] Jan, [facility] [address] [id number] [facility] [place] [address] Jan, [facility] [address] [id number] [facility] [place] [address] 24 Jan, 2014 [facility] [address] [id number] [address] [place] [address], [place] [address] Jan, [facility] [address] [id number] [address] [place] [address], [place] [address] Jan, [facility] [address] [id number] [address] [place] [address], [place] [address] Jan, [facility] [address] [id number] [address] [place] [address], [place] [address] Jan, [facility] [address] [id number] [address] [place] [address], [place] [address] Jan, [facility] [address] [id number] [address] [place] [address], [place] [address] Jan, [facility] [address] [id number] [address] [place] [address], [place] [address] Dec, [facility] [address] [id number] [address] [place] [address], [place] [address] Dec, [facility] [address] [id number] [address] [place] [address], [place] [address] Dec, [facility] [address] [id number] [address] [place] [address], [place] [address] 2013 [facility] [address] [id number] [address] [place] [address], [place] [address] Dec, [facility] [address] [id number] [address] [place] [address], [place] [address] Dec, [facility] [address] [id number] [address] [place] [address], [place] [address] Dec, [facility] [address] [id number] [address] [place] [address], [place] [address] Dec, [facility] [address] [id number] [address] [place] [address], [place] [address] Nov, [facility] [address] [id number] [address] [place] [address], [place] [address] Nov, [facility] [address] [id number] [address] [place] [address], [place] [address] Nov, [facility] [address] [id number] [address] [place] [address], [place] [address] Nov, [facility] [address] [id number] [address] [place] [address], [place] [address] Nov, [facility] [address] [id number] [address] [place] [address], [place] [address] Nov, [facility] [address] [id number] [address] [place] [address], [place] [address] Nov, [facility] [place] [address] [id number] [address] [place] [address], [place] [address] Nov, [facility] [address] [id number] [address] [place] [address], [place] [address] Nov, [facility] [facility] [address] [id number] [address] [place] [address], [place] [address] Nov, [facility] [address] [id number] [address] [place] [address], [place] [address] Nov, [facility] [address] [id number] [address] [place] [address], [place] [address] Nov, [facility] [address] [id number] [address] [place] [address], [place] [address] Nov, [facility] [address] [id number] [address] [place] [address], [place] [address] 30 Oct, 2013 [facility] [address] [id number] [address] [place] [address], [place] [address] Oct, [facility] [address] [id number] [address] [place] [address], [place] [address] Oct, [facility] [address] [id number] [address] [place] [address], [place] [address] Oct, [facility] [address] [id number] [address] [place] [address], [place] [address] Oct, [facility] [address] [id number] [address] [place] [address], [place] [address] Oct, [facility] [address] [id number] [address] [place] [address], [place] [address] Oct, [facility] [address] [id number] [address] [place] [address], [place] [address] Oct, [facility] [address] [id number] [address] [place] [address], [place] [address] Oct, [facility] [address] [id number] [address] [place] [address], [place] [address] Oct, [facility] [address] [id number] [address] [place] [address], [place] [address] Oct, [facility] [address] [id number] [address] [place] [address], [place] [address] Oct, [facility] [address] [id number] [address] [place] [address], [place] [address] Oct, [facility] [address] [id number] [address] [place] [address], [place] [address] Oct, [facility] [address] [id number] [address] [place] [address], [place] [address] 14 Sep, 2013 [facility] [address] [id number] [address] [place] [address], [place] [address] Sep, [facility] [address] [id number] [address] [place] [address], [place] [address] Sep, [facility] [address] [id number] [address] [place] [address] Sep, [facility] [address] [id number] [address] [place] [address] Sep, [facility] [address] [id number] [address] [place] [address] Sep, [facility] [address] [id number] [address] [place] [address], [place] [address] Sep, [facility] [address] [id number] [address] [place] [address] Sep, [facility] [address] [id number] [address] [place] [address] Sep, [facility] [address] [id number] [address] [place] [address] Sep, [facility] [address] [id number] [address] [place] [address] Aug, [facility] [address] [id number] [address] [place] [address] Aug, [facility] [address] [id number] [address] [place] [address] Aug, [facility] [address] [id number] [address] [place] [address] Aug, [facility] [address] [id number] [address] [place] [address], [place] [address] Aug, [facility] [address] [id number] [address] [place] [address] Aug, [facility] [address] [id number] [address] [place] [address] Aug, [facility] [address] [id number] [address] [place] [address], [place] [address] 23 Aug, 2012 [facility] [address] [id number] [address] [place] [address], [place] [address] 22 Aug, 2012 [facility] [address] [id number] [address] [place] [address], [place] [address] 22 Aug, 2012 [facility] [address] [id number] [address] [place] [address], [place] [address] 18 Aug, 2012 [facility] [address] [id number] [address] [place] [address], [place] [address] 18 Aug, 2012 [facility] [address] [id number] [address] [place] [address], [place] [address] 18 Aug, 2013 [facility] [address] [id number] [address] [place] [address], [place] [address] 18 Aug, 2013 [facility] [address] [id number] [address] [place] [address], [place] [address] 17 Aug, 2012 [facility] [address] [id number] [address] [place] [address], [place] [address] 14 Aug, 2013 [facility] [address] [id number] [address] [place] [address], [place] [address] 14 Aug, 2013 [facility] [place] [address] [id number] [address] [place] [address], [place] [address] 01 Aug, 2013 [facility] [address] [id number] [address] [place] [address], [place] [address] 20 Jul, 2012 [facility] [address] [id number] [address] [place] [address], [place] [address] 19 Sep, 2012 [facility] [address] [id number] [address] [place] [address], [place] [address] 18 Sep, 2012 [facility] [address] [id number] [address] [place] [address], [place] [address] 11 Jul, 2012 [facility] [address] [id number] [address] [place] [address], [place] [address] Jul, [facility] [address] [id number] [address] [place] [address], [place] [address] Jun, [facility] [address] [id number] [address] [place] [address], [place] [address] Jun, [facility] [address] [id number] [address] [place] [address], [place] [address] Jun, [facility] [address] [id number] [address] [place] [address], [place] [address] Jun, [facility] [address] [id number] [address] [place] [address], [place] [address] Jun, [facility] [address] [id number] [address] [place] [address], [place] [address] Jun, [facility] [address] [id number] [address] [place] [address], [place] [address] Jun, [facility] [address] [id number] [address] [place] [address], [place] [address] Jun, [facility] [address] [id number] [address] [place] [address], [place] [address] Jun, [facility] [address] [id number] [address] [place] [address], [place] [address] Jun, [facility] [address] [id number] [address] [place] [address], [place] [address] May, [facility] [address] [id number] [address] [place] [address], [place] [address] May, [facility] [address] [id number] [address] [place] [address], [place] [address] May, [facility] [address] [id number] [address] [place] [address], [place] [address] May, [facility] [address] [id number] [address] [place] [address], [place] [address] May, [facility] [address] [id number] [address] [place] [address], [place] [address] 16 May, 2013 [facility] [address] [id number] [address] [place] [address], [place] [address] May, [facility] [address] [id number] [address] [place] [address], [place] [address] May, [facility] [address] [id number] [address] [place] [address], [place] [address] May, [facility] [address] [id number] [address] [place] [address], [place] [address] Apr, [facility] [address] [id number] [address] [place] [address], [place] [address] Apr, [facility] [address] [id number] [address] [place] [address], [place] [address] Apr, [facility] [address] [id number] [address] [place] [address], [place] [address] Apr, [facility] [address] [id number] [address] [place] [address], [place] [address] Apr, [facility] [address] [id number] [address] [place] [address], [place] [address] Apr, [facility] [address] [id number] [address] [place] [address], [place] [address] Apr, [facility] [place] [address] [id number] [address] [place] [address], [place] [address] March, [facility] [address] [id number] [address] [place] [address], [place] [address] Feb, [facility] [address] [id number] [address] [place] [address], [place] [address] Feb, [facility] [address] [id number] [address] [place] [address], [place] [address] Feb, [facility] [address] [id number] [address] [place] [address], [place] [address] Jan, [facility] [address] [id number] [address] [place] [address], [place] [address] 21 Jan, 2013 [facility] [address] [id number] [address] [place] [address], [place] [address] 19 Jan, 2013 [facility] [address] [id number] [address] [place] [address], [place] [address] 14 Jan, 2013 [facility] [address] [id number] [address] [place] [address], [place] [address] 12 Jan, 2013 [facility] [address] [id number] [address] [place] [address], [place] [address] 08 Jan, 2013 [facility] [address] [id number] [address] [place] [address], [place] [address] 07 Jan, 2013 [facility] [address] [id number] [address] [place] [address], [place] [address] 04 Jan, 2013 [facility] [address] [id number] [address] [place] [address], [place] [address] 28 Dec, 2012 [facility] [address] [id number] [address] [place] [address], [place] [address] 25 Dec, 2012 [facility] [address] [id number] [address] [place] [address], [place] [address] 13 Dec, 2012 [facility] [address] [id number] [address] [place] [address], [place] [address] 11 Dec, 2012 [facility] [address] [id number] [address] [place] [address], [place] [address] 07 Dec, 2012 [facility] [address] [id number] [address] [place] [address], [place] [address] 06 Dec, 2012 [facility] [address] [id number] [address] [place] [address], [place] [address] 05 Dec, 2012 [facility] [address] [id number] [address] [place] [address], [place] [address] Nov, [facility] [address] [id number] [address] [place] [address], [place] [address] Nov, [facility] [address] [id number] [address] [place] [address], [place] [address] 18 Nov, 2012 [facility] [address] [id number] [address] [place] [address], [place] [address] 15 Nov, 2012 [facility] [address] [id number] [address] [place] [address], [place] [address] Nov, [facility] [address] [id number] [address] [place] [address], [place] [address] Nov, [facility] [address] [id number] [address] [place] [address], [place] [address] Nov, [facility] [address] [id number] [address] [place] [address], [place] [address] Oct, [facility] [place] [address] [id number] [address] [place] [address], [place] [address] Oct, [facility] [address] [id number] [address] [place] [address], [place] [address] Oct, [facility] [place] [address] [id number] [address] [place] [address], [place] [address] Oct, [facility] [address] [id number] [address] [place] [address], [place] [address] Oct, [facility] [place] [address] [id number] [address] [place] [address], [place] [address] Oct, [facility] [address] [id number] [address] [place] [address], [place] [address] Oct, [facility] [address] [id number] [address] [place] [address], [place] [address] Oct, [facility] [address] [id number] [address] [place] [address], [place] [address] 05 Oct, 2012 [facility] [address] [id number] [address] [place] [address], [place] [address] 05 Oct, 2012 [facility] [address] [id number] [address] [place] [address], [place] [address] Oct, [facility] [address] [id number] [address] [place] [address], [place] [address] Oct, [facility] [address] [id number] [address] [place] [address], [place] [address] Sep, [facility] [address] [id number] [address] [place] [address], [place] [address] Sep, [facility] [address] [id number] [address] [place] [address], [place] [address] Sep, [facility] [address] [id number] [address] [place] [address], [place] [address] Sep, [facility] [address] [id number] [address] [place] [address], [place] [address] Sep, [facility] [address] [id number] [address] [place] [address], [place] [address] Sep, [facility] [address] [id number] [address] [place] [address], [place] [address] Sep, [facility] [address] [id number] [address] [place] [address], [place] [address] Sep, [facility] [address] [id number] [address] [place] [address], [place] [address] Sep, [facility] [address] [id number] [address] [place] [address], [place] [address] Sep, [facility] [address] [id number] [address] [place] [address], [place] [address] Sep, [facility] [address] [id number] [address] [place] [address], [place] [address] Aug, [facility] [address] [id number] [address] [place] [address], [place] [address] Aug, [facility] [address] [id number] [address] [place] [address], [place] [address] Aug, [facility] [address] [id number] [address] [place] [address], [place] [address] Aug, [facility] [address] [id number] [address] [place] [address], [place] [address] Aug, [facility] [address] [id number] [address] [place] [address], [place] [address] Aug, [facility] [address] [id number] [address] [place] [address], [place] [address] Aug, [facility] [address] [id number] [address] [place] [address], [place] [address] Aug, [facility] [address] [id number] [address] [place] [address], [place] [address] Aug, [facility] [address] [id number] [address] [place] [address], [place] [address] Aug, [facility] [address] [id number] [address] [place] [address], [place] [address] Jul, [facility] [address] [id number] [address] [place] [address], [place] [address] 20 Jul, 2012 [facility] [address] [id number] [address] [place] [address], [place] [address] 10 Jul, 2012 [facility] [address] [id number] [address] [place] [address], [place] [address] 06 Jul, 2012 [facility] [address] [id number] [address] [place] [address], [place] [address] 30 Jun, 2012 [facility] [address] [id number] [address] [place] [address], [place] [address] Jun, [facility] [address] [id number] [address] [place] [address], [place] [address] 16 Jun, 2012 [facility] [address] [id number] [address] [place] [address], [place] [address] Jun, [facility] [address] [id number] [address] [place] [address] [place] [address] Jun, [facility] [address] [id number] [address] [place] [address], [place] [address] Jun, [facility] [address] [id number] [address] [place] [address], [place] [address] Jun, [facility] [address] [id number] [address] [place] [address], [place] [address] May, [facility] [address] [id number] [address] [place] [address], [place] [address] May, [facility] [address] [id number] [address] [place] [address], [place] [address] May, [facility] [address] [id number] [address] [place] [address], [place] [address] May, [facility] [place] [address] [id number] [address] [place] [address], [place] [address] May, [facility] [address] [id number] [address] [place] [address], [place] [address] Apr, [facility] [address] [id number] [address] [place] [address], [place] [address] Apr, [facility] [address] [id number] [address] [place] [address], [place] [address] Apr, [facility] [address] [id number] [address] [place] [address], [place] [address] Apr, [facility] [address] [id number] [address] [place] [address], [place] [address] Apr, [facility] [address] [id number] [address] [place] [address], [place] [address] March, [facility] [address] [id number] [address] [place] [address], [place] [address] March, [facility] [address] [id number] [address] [place] [address], [place] [address] March, [facility] [address] [id number] [address] [place] [address], [place] [address] March, [facility] [address] [id number] [address] [place] [address], [place] [address] March, [facility] [address] [id number] [address] [place] [address], [place] [address] March, [facility] [address] [id number] [address] [place] [address], [place] [address] March, [facility] [address] [id number] [address] [place] [address], [place] [address] March, [facility] [address] [id number] [address] [place] [address], [place] [address] March, [facility] [address] [id number] [address] [place] [address], [place] [address] March, [facility] [address] [id number] [address] [place] [address], [place] [address] 30 Feb, 2012 [facility] [address] [id number] [address] [place] [address], [place] [address] Feb, [facility] [place] [address] [id number] [address] [place] [address], [place] [address] Feb, [facility] [address] [id number] [address] [place] [address], [place] [address] Feb, [facility] [address] [id number] [address] [place] [address], [place] [address] 17 Feb, 2012 [facility] [address] [id number] [address] [place] [address], [place] [address] Feb, [facility] [address] [id number] [address] [place] [address], [place] [address] Feb, [facility] [address] [id number] [address] [place] [address], [place] [address] Feb, [facility] [address] [id number] [address] [place] [address], [place] [address] Feb, [facility] [address] [id number] [address] [place] [address], [place] [address] Jan, [facility] [address] [id number] [address] [place] [address], [place] [address] Jan, [facility] [address] [id number] [address] [place] [address], [place] [address] Jan, [facility] [address] [id number] [address] [place] [address], [place] [address] Jan, [facility] [address] [id number] [address] [place] [address], [place] [address] Dec, [facility] [address] [id number] [address] [place] [address], [place] [address] Dec, [facility] [address] [id number] [address] [place] [address], [place] [address] Nov, [facility] [address] [id number] [address] [place] [address], [place] [address] Nov, [facility] [address] [id number] [address] [place] [address], [place] [address] Nov, [facility] [address] [id number] [address] [place] [address], [place] [address] Nov, [facility] [place] [address] [id number] [address] [place] [address], [place] [address] Nov, [facility] [address] [id number] [address] [place] [address], [place] [address] Oct, [facility] [address] [id number] [address] [place] [address], [place] [address] Oct, [facility] [address] [id number] [address] [place] [address], [place] [address] Oct, [facility] [address] [id number] [address] [place] [address], [place] [address] Oct, [facility] [address] [id number] [address] [place] [address] Oct, [facility] [address] [facility] [id number] [address] [place] [address] Oct, [facility] [address] [facility] [id number] [address] [place] [address] Oct, [facility] [address] [facility] [id number] [address] [place] [id number] Oct, [facility] [address] [facility] [id number] [address] [place] [id number] Sep, IMMUNIZATIONS No Known Immunizations SOCIAL HISTORY [...] No Surgical history information Hospitalization History [facility]- Urosepsis, ab d pain and fever, discharged 11/27/2017 11/26/2017 Hospitalization History [facility] [place]- Went Unrepsonsive, Hit head 2017 Hospitalization History [facility] [place]- Back Pain 8
--- OUTSIDE RECORDS SUMMARY | 2020-06-18 14:49 | XMS REPORT ---
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 Role Phone MAX DHILLON Unavailable PROBLEMS Type Condition ICD9-CM Code [id number] Code Onset Dates Condition S tatus SNOMED Code Problem Hypertension I10 Active 8592782 3 Problem Hyperlipidemia E78.5 Active 08453 004 Problem Coronary artery disease I25.10 Active 66250944 Problem Low back pain M54.5 Active 946636 009 Problem Other chronic pain G89.29 Active 8 8418385 Problem Ventral hernia without obstruction or gangrene K43 .9 Active 674579444 Problem Type 2 diabetes mellitus wit hout complication, without long-term current use of insulin E11.9 Active 940131730 Problem Anxiety F41.9 Active 88323570 Problem Peripheral vascular disease I73.9 Ac tive 638705073 Problem Insomnia G47.00 Active 004908451 Problem Microcytic anemia D50.9 Active 23 1303031 Problem Pharyngeal dysphagia R13.13 Active 90385790246507 Problem Other iron deficiency anemia D50.8 A ctive 07261516 Problem Reactive depression F32.9 Active 86402551 Problem Paroxysmal atrial fibrillation I48.0 Active 764799249 Problem 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 Active 31215286 Problem Encounter for suprapubic catheter care Z43.5 Active 364010187 Problem Neurogenic bladder N31.9 Active 3 [id number] ALLERGIES No Information ENCOUNTERS Encounter Location Date Diagnosis [facility] [address] [id number] [address] [place] [address] Jan, Anxiety F41.9 and Strain of right shoulder, subsequent encounter S46.911D [facility] [address] [id number] [address] [place] [address] Jan, [facility] [address] [place] [id number] Jan, Neurogenic bladder N31.9 [place] [address] [id number] [address] [place] [address] Dec, [place] [address] [id number] [address] [place] [address] Dec, [place] [address] [id number] [address] [place] [address] Dec, Anxiety F41.9 and Strain of right shoulder, subsequent encounter S46.911D [place] [address] [id number] [address] [place] [address] 10 Dec, 2019 Other iron deficiency anemia D50.8 [place] [address] [id number] [address] [place] [address] 04 Dec, 2019 Via [facility] [address] [place] [id number] Dec, Encounter for suprapubic catheter care Z 43.5 and Microcytic anemia D50.9 [place] [address] [id number] [address] [place] [address] Dec, [place] [address] [id number] [address] [place] [address] Nov, Anxiety F41.9 and Strain of right shoulder, subsequent encounter S46.911D [place] [address] [id number] [address] [place] [address] Nov, Hypertension I10 [facility] [address] [place] [address] Nov, Pneumonia of both lungs due to infectiou s organism, unspecified part of lung J18.9 and Suprapubic catheter Z93.59 [place] [address] [id number] [address] [place] [address] Nov, Hypertension I10 and Reactiv e depression F32.9 [place] [address] [id number] [address] [place] [address] Oct, Strain of right shoulder, scherer bsequent encounter S46.911D and Anxiety F41.9 [facility] [address] [id number] [address] [place] [address] Oct, Via [facility] [address] [place] [id number] Oct, Suprapubic catheter Z93.59 and Candidias is, intertriginous B37.2 [facility] [address] [id number] [address] [place] [address] Oct, Suprapubic catheter Z93.59 [facility] [address] [id number] [address] [place] [address] Oct, Anxiety F41.9 and Strain of right shoulder, subsequent encounter S46.911D [facility] [address] [id number] [address] [place] [address] Sep, [facility] [address] [id number] [address] [place] [address] Sep, [facility] [address] [id number] [address] [place] [address] Sep, Via [employer] [address] [place] [id number] Sep, Suprapubic catheter Z93.59 [facility] [address] [id number] [address] [place] [address] Sep, Anxiety F41.9 and Strain of right shoulder, subsequent encounter S46.911D [facility] [address] [id number] [address] [place] [address] Aug, [facility] [address] [id number] [address] [place] [address] Aug, [facility] [address] [id number] [address] [place] [address] Aug, Anxiety F41.9 and Strain of right shoulder, subsequent encounter S46.911D Via [employer] [address] [place] [id number] Aug, Suprapubic catheter Z93.59 [facility] [address] [id number] [address] [place] [address] Jul, Strain of right shoulder, scherer bsequent encounter S46.911D and Anxiety F41.9 [facility] [address] [id number] [address] [place] [address] Jul, Anxiety F41.9 [facility] [address] [id number] [address] [place] [address] Jun, [facility] [address] [id number] [address] [place] [address] Jun, [facility] [address] [id number] [address] [place] [address] Jun, [facility] [address] [id number] [address] [place] [address] Jun, Strain of right shoulder, scherer bsequent encounter S46.911D [facility] [address] [id number] [address] [place] [address] Jun, Strain of right shoulder, scherer bsequent encounter S46.911D [facility] [address] [id number] [address] [place] [address] Jun, Anxiety F41.9 Via [facility] [address] [place] [id number] Jun, Neurogenic bladder N31.9 and Anxiety F41 .9 Via [facility] [address] [place] [id number] May, Anxiety F41.9 [facility] [address] [id number] [address] [place] [address] May, Dysuria R30.0 [facility] [address] [id number] [address] [place] [address] May, Strain of right shoulder, scherer bsequent encounter S46.911D and Anxiety F41.9 [place] [address] [id number] [address] [place] [address] 27 Apr, 2019 Via [facility] [address] [place] [id number] 18 Apr, 2019 Strain of right shoulder, subsequent enc ounter S46.911D [place] [address] [id number] [address] [place] [address] 14 Apr, 2019 Strain of right shoulder, scherer bsequent encounter S46.911D and Anxiety F41.9 [facility] [address] [place] [id number] 13 Apr, 2019 Type 2 diabetes mellitus without complic ation, without long-term current use of insulin E11.9 and Neurogenic bladder N31.9 [facility] [address] [place] [id number] 11 Apr, 2019 Strain of right shoulder, subsequent enc ounter S46.911D ; History of GI bleed Z87.19 ; Neurogenic bladder N31.9 and Reactive depression F32.9 [place] [address] [id number] [address] [place] [address] 10 Apr, 2019 Acute pain of left shoulder M25.512 [place] [address] [id number] [address] [place] [phone] 07 Apr, 2019 [place] [address] [id number] [address] [place] [address] Apr, Anxiety F41.9 and 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 [facility] [address] [place] [id number] March, Gastrointestinal hemorrhage associated w ith acute gastritis K29.01 [place] [address] [id number] [address] [place] [phone] March, [facility] [employer] [address] [place] [id number] March, Bronchitis J40 [place] [address] [id number] [address] [place] [address] March, Cough R05 [facility] [address] [id number] [address] [place] [address] March, Other chronic pain G89.29 [facility] [address] [id number] [address] [place] [address] March, Anxiety F41.9 [facility] [address] [id number] [address] [place] [address] March, [facility] [address] [id number] [address] [place] [address] Feb, Other chronic pain G89.29 [facility] [address] [id number] [address] [place] [address] Feb, Anxiety F41.9 [facility] [address] [id number] [address] [place] [address] Feb, Other chronic pain G89.29 Via [employer] [address] [place] [id number] Feb, Neurogenic bladder N31.9 and Suprapubic catheter Z93.59 [facility] [address] [id number] [address] [place] [address] Jan, Anxiety F41.9 [facility] [address] [id number] [address] [place] [address] Dec, Anxiety F41.9 [facility] [address] [id number] [address] [place] [address] Dec, Other chronic pain G89.29 an d Anxiety F41.9 [facility] [address] [id number] [address] [place] [address] Dec, Via [employer] [address] [place] [id number] Dec, Neurogenic bladder N31.9 and Suprapubic catheter Z93.59 [facility] [address] [id number] [address] [place] [address] Nov, Other chronic pain G89.29 an d Anxiety F41.9 [facility] [address] [id number] [address] [place] [address] Nov, Via [employer] [address] [place] [id number] Nov, Suprapubic catheter Z93.59 [facility] [address] [id number] [address] [place] [phone] Oct, Other chronic pain G89.29 an d Anxiety F41.9 [facility] [address] [id number] [address] [place] [address] Oct, [facility] [address] [id number] [address] [place] [phone] Oct, Suprapubic catheter Z93.59 [facility] [address] [id number] [address] [place] [phone] Oct, Via [employer] [address] [place] [id number] Oct, [facility] [address] [id number] [address] [place] [phone] Oct, Anxiety F41.9 [facility] [address] [id number] [address] [place] [address] Oct, Anxiety F41.9 [facility] [employer] [address] [place] [id number] Oct, Other chronic pain G89.29 [facility] [address] [id number] [address] [place] [address] Sep, Other chronic pain G89.29 Via [employer] [address] [place] [id number] Sep, Suprapubic catheter Z93.59 and Cervicalg ia M54.2 [facility] [address] [id number] [address] [place] [address] Sep, [facility] [address] [id number] [address] [place] [address] Sep, [facility] [address] [id number] [address] [place] [phone] Sep, Via [employer] [address] [place] [id number] Aug, Cystitis N30.90 [facility] [address] [id number] [address] [place] [address] Aug, [facility] [address] [id number] [address] [place] [address] Aug, Other chronic pain G89.29 [facility] [address] [id number] [address] [place] [phone] Aug, Via [employer] [address] [place] [id number] Aug, Encounter for suprapubic catheter care Z 43.5 [facility] [address] [id number] [address] [place] [phone] Jul, Via [employer] [address] [place] [id number] Jul, [facility] [address] [id number] [address] [place] [phone] Jul, Other chronic pain G89.29 [facility] [address] [id number] [address] [place] [phone] Jul, [facility] [address] [id number] [address] [place] [address] Jul, Via [employer] [address] [place] [id number] Jun, 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 [facility] [address] [id number] [address] [place] [address] Jun, Other chronic pain G89.29 [facility] [address] [id number] [address] [place] [address] Jun, Via [employer] [address] [place] [id number] May, Anxiety F41.9 ; Type 2 diabetes mellitus without complication, without long-term current use of insulin E11.9 ; Hypertension I10 ; Low back pain M54.5 ; Paroxysmal atrial fibrillation I48.0 and 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 [facility] [address] [id number] [address] [place] [address] May, Other chronic pain G89.29 Via [facility] [address] [place] [id number] May, Low back pain M54.5 [facility] [address] [id number] [address] [place] [address] May, [facility] [address] [id number] [address] [place] [address] Apr, Other chronic pain G89.29 [facility] [address] [id number] [address] [place] [address] Apr, [facility] [address] [id number] [address] [place] [address] Apr, Via [employer] [address] [place] [id number] Apr, Closed compression fracture of L3 lumbar vertebra with routine healing, subsequent encounter S32.030D [facility] [address] [place] [id number] Apr, Low back pain M54.5 [facility] [employer] [address] [place] [id number] Apr, Coccydynia M53.3 [facility] [address] [id number] [address] [place] [address] March, [facility] [address] [id number] [address] [place] [address] March, Other chronic pain G89.29 [facility] [address] [id number] [address] [place] [address] March, [facility] [address] [id number] [address] [place] [address] March, [facility] [address] [id number] [address] [place] [address] Feb, [facility] [address] [id number] [address] [place] [address] Feb, Other chronic pain G89.29 [facility] [address] [place] [id number] Feb, Other chronic pain G89.29 and Anxiety F4 1.9 [facility] [address] [id number] [address] [place] [address] Feb, [facility] [address] [id number] [address] [place] [address] Jan, [facility] [address] [id number] [address] [place] [address] Jan, [facility] [address] [id number] [address] [place] [address] Jan, [facility] [address] [id number] [address] [place] [address] Jan, [facility] [address] [id number] [address] [place] [address] Dec, Via [facility] [address] [place] [id number] Dec, Peripheral vascular disease I73.9 ; 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 ; Other chronic pain G89.29 ; Anxiety F41.9 ; Reactive depression F32.9 ; Insomnia G47.00 and Type 2 diabetes mellitus without complication, without long-term current use of insulin E11.9 [facility] [place] [address] [id number] [address] Nov, [facility] [address] [id number] [place] [id number] Nov, Anxiety F41.9 [facility] [address] [id number] [address] [place] [address] Nov, [facility] [address] [id number] [place] [id number] Nov, Anxiety F41.9 Via [facility] [employer] [address] [place] [id number] Nov, Status post surgery Z98.890 ; Confused R 41.0 ; Anxiety F41.9 and Other chronic pain G89.29 [facility] [address] [id number] [place] [id number] Nov, Other chronic pain G89.29 [facility] [address] [id number] [address] [place] [address] Oct, [facility] [address] [id number] [place] [id number] Oct, Other chronic pain G89.29 [facility] [address] [id number] [address] [place] [address] Oct, Anxiety F41.9 [facility] [address] [id number] [place] [id number] Sep, Other chronic pain G89.29 [facility] [address] [id number] [place] [address] Sep, Via [employer] [address] [place] [id number] Aug, Dysuria R30.0 and Anxiety F41.9 [facility] [address] [id number] [address] [place] [address] Aug, [facility] [address] [id number] [place] [id number] Aug, Other chronic pain G89.29 [facility] [address] [id number] [address] [place] [address] Jul, Other chronic pain G89.29 [facility] [address] [id number] [place] [id number] Jun, [facility] [address] [id number] [place] [id number] Jun, Other chronic pain G89.29 [facility] [address] [id number] [address] [place] [phone] Jun, [facility] [address] [facility] [id number] [address] [place] [phone] May, Other chronic pain G89.29 [facility] [address] [id number] [address] [place] [address] Apr, Other chronic pain G89.29 Via [facility] [employer] [address] [place] [id number] Apr, Reactive depression F32.9 and Pharyngeal dysphagia R13.13 [facility] [address] [facility] [id number] [address] [place] [address] Apr, Urinary tract infection with out hematuria, site unspecified N39.0 [facility] [address] [facility] [id number] [address] [place] [address] March, Other chronic pain G89.29 [facility] [address] [facility] [id number] [address] [place] [address] Feb, Other chronic pain G89.29 [facility] [address] [facility] [id number] [address] [place] [phone] Feb, [facility] [address] [id number] [place] [id number] Feb, [facility] [employer] [address] [place] [id number] Feb, Dysuria R30.0 and Ventral hernia without obstruction or gangrene K43.9 [facility] [address] [id number] [address] [place] [phone] Jan, Other chronic pain G89.29 [facility] [address] [id number] [id number] Dec, Other chronic pain G89.29 [facility] [address] [id number] [address] [place] [address] Nov, Other chronic pain G89.29 Via [facility] [address] [place] [id number] Nov, Lymphadenitis I88.9 [facility] [address] [id number] [address] [place] [address] Nov, Other chronic pain G89.29 [facility] [address] [id number] [address] [place] [phone] Nov, [facility] [id number] [place] [id number] Nov, Other chronic pain G89.29 [facility] [address] [place] [id number] Oct, Low back pain M54.5 ; Hypertension I10 a nd Type 2 diabetes mellitus without complication, without long-term current use of insulin E11.9 [facility] [address] [id number] [address] [place] [id number] Oct, [facility] [address] [id number] [address] [place] [phone] Oct, [facility] [address] [id number] [address] [place] [phone] Oct, [facility] [address] [id number] [address] [place] [phone] Oct, [facility] [address] [id number] [address] [place] [phone] Sep, [facility] [address] [id number] [address] [place] [phone] Sep, [facility] [address] [id number] [address] [place] [phone] Aug, Other chronic pain G89.29 [facility] [address] [id number] [address] [place] [phone] Jul, [facility] [address] [id number] [address] [place] [phone] Jul, [facility] [address] [id number] [address] [place] [phone] Jul, [facility] [address] [id number] [address] [place] [phone] Jun, [facility] [address] [id number] [address] [place] [phone] Jun, [facility] [address] [place] [id number] Jun, Low back pain M54.5 ; Other chronic pain G89.29 and Coronary artery disease I25.10 [facility] [address] [id number] [address] [place] [phone] Jun, [facility] [address] [id number] [address] [place] [phone] May, [facility] [address] [id number] [address] [place] [phone] May, [facility] [address] [id number] [address] [place] [phone] May, Other chronic pain G89.29 [facility] [address] [id number] [address] [place] [phone] May, [facility] [address] [id number] [address] [place] [phone] Apr, [facility] [address] [id number] [address] [place] [phone] Apr, Acute cystitis without hemat uria N30.00 [facility] [address] [id number] [address] [place] [address] 16 Apr, 2016 Acute cystitis without hemat uria N30.00 ; Coronary artery disease I25.10 ; Low back pain M54.5 and Other chronic pain G89.29 [facility] [address] [id number] [address] [place] [address] Apr, Other chronic pain G89.29 [facility] [address] [id number] [address] [place] [address] March, Other chronic pain G89.29 [facility] [address] [id number] [address] [place] [address] 18 Feb, 2016 [facility] [address] [id number] [address] [place] [address] Feb, Arthritis M19.90 [facility] [address] [id number] [address] [place] [address] Feb, [facility] [address] [facility] [id number] [address] [place] [address] Jan, [facility] [address] [id number] [address] [place] [address] Jan, [facility] [address] [id number] [address] [place] [address] Jan, Other chronic pain G89.29 [facility] [address] [facility] [id number] [address] [place] [address] Jan, Hypertension I10 ; Coronary artery disease I25.10 and Insomnia G47.00 [facility] [address] [id number] [address] [place] [address] Jan, [facility] [address] [id number] [address] [place] [address] Dec, Right hip pain M25.551 [facility] [address] [id number] [address] [place] [address] Dec, [facility] [address] [facility] [id number] [address] [place] [address] Dec, [facility] [address] [facility] [id number] [address] [place] [address] Dec, [facility] [address] [id number] [address] [place] [address] Dec, Other chronic pain G89.29 [facility] [address] [id number] [address] [place] [address] Dec, [facility] [address] [id number] [address] [place] [address] Nov, [facility] [address] [id number] [address] [place] [address] Nov, Other chronic pain G89.29 [facility] [address] [id number] [address] [place] [address] Nov, Right hip pain M25.551 and C oronary artery disease I25.10 [facility] [address] [id number] [address] [place] [address] Nov, Other chronic pain G89.29 [facility] [address] [id number] [address] [place] [address] Oct, [facility] [address] [id number] [address] [place] [address] Oct, [facility] [address] [id number] [address] [place] [address] Sep, [facility] [address] [id number] [address] [place] [address] Sep, [facility] [address] [id number] [address] [place] [address] Aug, [facility] [address] [id number] [address] [place] [address] Aug, Hypertension I10 ; Coronary artery disease I25.10 and Arthritis M19.90 [facility] [address] [id number] [address] [place] [address] Jun, [facility] [address] [id number] [address] [place] [address] Jun, Essential hypertension, jayson gn 401.1 ; Other chronic pain 338.29 and Chronic airway obstruction, not elsewhere classified 496 [facility] [address] [id number] [address] [place] [address] Jun, [facility] [address] [id number] [address] [place] [address] Jun, [facility] [address] [id number] [address] [place] [address] Jun, [facility] [address] [id number] [address] [place] [address] May, [facility] [address] [id number] [address] [place] [address] May, [facility] [address] [id number] [address] [place] [address] Apr, [facility] [address] [id number] [address] [place] [address] Apr, [facility] [address] [id number] [address] [place] [address] Apr, [facility] [address] [id number] [address] [place] [address] March, [facility] [address] [id number] [address] [place] [address] March, [facility] [address] [id number] [address] [place] [address] March, [facility] [address] [id number] [address] [place] [address] March, [facility] [address] [id number] [address] [place] [address] March, Sialadenitis 527.2 [facility] [address] [id number] [address] [place] [address] Feb, [facility] [address] [id number] [address] [place] [address], [place] [address] Feb, [facility] [address] [id number] [address] [place] [address], [place] [address] Feb, [facility] [address] [id number] [address] [place] [address], [place] [address] 14 Feb, 2015 [facility] [address] [id number] [address] [place] [address], [place] [address] Feb, [facility] [address] [id number] [address] [place] [address], [place] [address] Jan, [facility] [address] [id number] [address] [place] [address], [place] [address] Jan, [facility] [address] [id number] [address] [place] [address], [place] [address] Jan, [facility] [address] [id number] [address] [place] [address], [place] [address] Jan, [facility] [address] [id number] [address] [place] [address], [place] [address] Jan, [facility] [address] [id number] [address] [place] [address], [place] [address] Jan, [facility] [address] [id number] [address] [place] [address], [place] [address] Dec, [facility] [address] [id number] [address] [place] [address], [place] [address] Dec, 2014 [facility] [address] [id number] [address] [place] [address], [place] [address] Dec, 2014 [facility] [address] [id number] [address] [place] [address], [place] [address] Dec, 2014 [facility] [address] [id number] [address] [place] [address], [place] [address] Dec, 2014 [facility] [address] [id number] [address] [place] [address], [place] [address] Dec, [facility] [address] [id number] [address] [place] [address], [place] [address] Nov, [facility] [address] [id number] [address] [place] [address], [place] [address] Nov, [facility] [address] [id number] [address] [place] [address], [place] [address] Nov, [facility] [address] [id number] [address] [place] [address], [place] [address] Nov, [facility] [address] [id number] [address] [place] [address], [place] [address] Nov, [facility] [address] [id number] [address] [place] [address], [place] [address] Nov, [facility] [address] [id number] [address] [place] [address], [place] [address] Nov, [facility] [address] [id number] [address] [place] [address], [place] [address] Nov, [facility] [address] [id number] [address] [place] [address], [place] [address] Nov, [facility] [address] [id number] [address] [place] [address], [place] [address] Nov, [facility] [address] [id number] [address] [place] [address], [place] [address] Nov, [facility] [address] [id number] [address] [place] [address], [place] [address] Nov, [facility] [address] [id number] [address] [place] [address], [place] [address] Nov, [facility] [address] [id number] [address] [place] [address], [place] [address] Nov, [facility] [address] [id number] [address] [place] [address], [place] [address] Oct, [facility] [address] [id number] [address] [place] [address], [place] [address] Oct, [facility] [address] [id number] [address] [place] [address], [place] [address] Oct, [facility] [address] [id number] [address] [place] [address], [place] [address] Oct, [facility] [address] [id number] [address] [place] [address], [place] [address] Oct, [facility] [address] [id number] [address] [place] [address], [place] [address] Oct, [facility] [address] [id number] [address] [place] [address], [place] [address] Oct, [facility] [address] [id number] [address] [place] [address], [place] [address] Oct, [facility] [address] [id number] [address] [place] [address], [place] [address] Oct, [facility] [address] [id number] [address] [place] [address], [place] [address] Sep, [facility] [address] [id number] [address] [place] [address], [place] [address] Sep, [facility] [address] [id number] [address] [place] [address], [place] [address] Sep, [facility] [address] [id number] [address] [place] [address], [place] [address] Sep, [facility] [address] [id number] [address] [place] [address], [place] [address] Sep, [facility] [address] [id number] [address] [place] [address], [place] [address] Sep, [facility] [address] [id number] [address] [place] [address], [place] [address] Sep, [facility] [address] [id number] [address] [place] [address], [place] [address] Sep, [facility] [address] [id number] [address] [place] [address], [place] [address] Sep, [facility] [address] [id number] [address] [place] [address], [place] [address] Sep, [facility] [address] [id number] [address] [place] [address], [place] [address] Sep, [facility] [address] [id number] [address] [place] [address], [place] [address] Sep, [facility] [address] [id number] [address] [place] [address], [place] [address] Aug, [facility] [address] [id number] [address] [place] [address], [place] [address] Aug, [facility] [address] [id number] [address] [place] [address], [place] [address] Aug, [facility] [address] [id number] [address] [place] [address], [place] [address] Aug, [facility] [address] [id number] [address] [place] [address], [place] [address] Aug, [facility] [address] [id number] [address] [place] [address], [place] [address] Aug, [facility] [address] [id number] [address] [place] [address], [place] [address] Aug, [facility] [address] [id number] [address] [place] [address] Aug, [facility] [address] [id number] [address] [place] [address], [place] [address] 30 Jul, 2014 [facility] [address] [id number] [address] [place] [address], [place] [address] 30 Jul, 2014 [facility] [address] [id number] [address] [place] [address], [place] [address] 30 Jul, 2014 [facility] [address] [id number] [facility] [place] [address] 30 Jul, 2013 [facility] [address] [id number] [facility] [place] [address] 25 Jul, 2013 [facility] [address] [id number] [facility] [place] [address] 25 Jul, 2013 [facility] [address] [id number] [address] [place] [address], [place] [address] 15 Jul, 2014 [facility] [address] [id number] [address] [place] [address], [place] [address] 15 Jul, 2013 [facility] [address] [id number] [address] [place] [address], [place] [address] Jul, [facility] [address] [id number] [address] [place] [address], [place] [address] Jul, [facility] [address] [id number] [address] [place] [address], [place] [address] Jun, [facility] [address] [id number] [address] [place] [address], [place] [address] Jun, [facility] [address] [id number] [address] [place] [address], [place] [address] Jun, [facility] [address] [id number] [address] [place] [address], [place] [address] Jun, [facility] [address] [id number] [address] [place] [address], [place] [address] Jun, [facility] [address] [id number] [address] [place] [address], [place] [address] Jun, [facility] [address] [id number] [address] [place] [address], [place] [address] Jun, [facility] [address] [id number] [address] [place] [address], [place] [address] Jun, [facility] [address] [id number] [address] [place] [address], [place] [address] Jun, [facility] [address] [id number] [address] [place] [address], [place] [address] Jun, [facility] [address] [id number] [address] [place] [address], [place] [address] Jun, [facility] [address] [id number] [address] [place] [address], [place] [address] Jun, [facility] [address] [id number] [address] [place] [address], [place] [address] Jun, [facility] [address] [id number] [address] [place] [address], [place] [address] Jun, [facility] [address] [id number] [address] [place] [address], [place] [address] Jun, [facility] [address] [id number] [address] [place] [address], [place] [address] Jun, [facility] [address] [id number] [address] [place] [address], [place] [address] Jun, [facility] [address] [id number] [address] [place] [address], [place] [address] Jun, [facility] [address] [id number] [address] [place] [address], [place] [address] Jun, [facility] [address] [id number] [address] [place] [address], [place] [address] Jun, [facility] [address] [id number] [address] [place] [address], [place] [address] Jun, [facility] [address] [id number] [address] [place] [address], [place] [address] Jun, [facility] [address] [id number] [address] [place] [address], [place] [address] May, [facility] [address] [id number] [address] [place] [address], [place] [address] May, [facility] [address] [id number] [address] [place] [address], [place] [address] May, [facility] [address] [id number] [facility] [place] [address] May, [facility] [address] [id number] [facility] [place] [address] May, [facility] [address] [id number] [facility] [place] [address] May, 2013 [facility] [address] [id number] [address] [place] [address], [place] [address] May, 2013 [facility] [address] [id number] [address] [place] [address], [place] [address] May, [facility] [address] [id number] [address] [place] [address], [place] [address] May, 2013 [facility] [address] [id number] [address] [place] [address], [place] [address] May, [facility] [address] [id number] [address] [place] [address], [place] [address] May, [facility] [address] [id number] [address] [place] [address], [place] [address] May, [facility] [address] [id number] [address] [place] [address], [place] [address] May, [facility] [address] [id number] [address] [place] [address], [place] [address] Apr, [facility] [address] [id number] [address] [place] [address], [place] [address] Apr, [facility] [address] [id number] [address] [place] [address], [place] [address] Apr, [facility] [address] [id number] [address] [place] [address], [place] [address] Apr, [facility] [address] [id number] [address] [place] [address], [place] [address] Apr, [facility] [address] [id number] [facility] [place] [address] Apr, [facility] [address] [id number] [facility] [place] [address] Apr, [facility] [address] [id number] [facility] [place] [address] Apr, [facility] [address] [id number] [facility] [place] [address] Apr, [facility] [address] [id number] [facility] [place] [address] March, [facility] [address] [id number] [address] [place] [address], [place] [address] March, [facility] [address] [id number] [address] [place] [address], [place] [address] March, [facility] [address] [id number] [address] [place] [address], [place] [address] March, [facility] [address] [id number] [address] [place] [address], [place] [address] March, [facility] [address] [id number] [address] [place] [address], [place] [address] March, [facility] [address] [id number] [address] [place] [address], [place] [address] March, [facility] [address] [id number] [address] [place] [address], [place] [address] March, [facility] [address] [id number] [address] [place] [address], [place] [address] March, [facility] [address] [id number] [address] [place] [address], [place] [address] March, [facility] [address] [id number] [address] [place] [address], [place] [address] March, [facility] [address] [id number] [address] [place] [address], [place] [address] March, [facility] [address] [id number] [address] [place] [address], [place] [address] March, [facility] [address] [id number] [address] [place] [address], [place] [address] March, [facility] [address] [id number] [address] [place] [address], [place] [address] March, [facility] [address] [id number] [address] [place] [address], [place] [address] March, [facility] [address] [id number] [address] [place] [address], [place] [address] March, [facility] [address] [id number] [address] [place] [address], [place] [address] March, [facility] [address] [id number] [address] [place] [address], [place] [address] March, [facility] [address] [id number] [address] [place] [address], [place] [address] March, [facility] [address] [id number] [address] [place] [address], [place] [address] Feb, [facility] [address] [id number] [address] [place] [address], [place] [address] Feb, [facility] [address] [id number] [address] [place] [address], [place] [address] Feb, [facility] [address] [id number] [address] [place] [address], [place] [address] Feb, [facility] [address] [id number] [address] [place] [address], [place] [address] Feb, [facility] [address] [id number] [address] [place] [address], [place] [address] Feb, [facility] [address] [id number] [address] [place] [address], [place] [address] Feb, [facility] [address] [id number] [facility] [place] [address] 11 Feb, 2014 [facility] [address] [id number] [address] [place] [address], [place] [address] Jan, [facility] [address] [id number] [facility] [place] [address] Jan, [facility] [address] [id number] [address] [place] [address], [place] [address] Jan, [facility] [address] [id number] [address] [place] [address], [place] [address] Jan, [facility] [address] [id number] [address] [place] [address], [place] [address] Jan, [facility] [address] [id number] [address] [place] [address], [place] [address] Jan, [facility] [address] [id number] [address] [place] [address], [place] [address] Jan, [facility] [address] [id number] [address] [place] [address], [place] [address] Jan, [facility] [address] [id number] [address] [place] [address], [place] [address] Jan, [facility] [address] [id number] [address] [place] [address], [place] [address] Jan, [facility] [address] [id number] [address] [place] [address], [place] [address] Dec, [facility] [address] [id number] [address] [place] [address], [place] [address] Dec, [facility] [address] [id number] [address] [place] [address], [place] [address] Dec, [facility] [address] [id number] [address] [place] [address], [place] [address] 2013 [facility] [address] [id number] [address] [place] [address], [place] [address] Dec, [facility] [address] [id number] [facility] [place] [address] Dec, [facility] [address] [id number] [facility] [place] [address] Dec, [facility] [address] [id number] [address] [place] [address], [place] [address] Dec, [facility] [address] [id number] [address] [place] [address], [place] [address] Nov, [facility] [address] [id number] [address] [place] [address], [place] [address] Nov, [facility] [address] [id number] [address] [place] [address], [place] [address] Nov, [facility] [address] [id number] [address] [place] [address], [place] [address] Nov, [facility] [address] [id number] [address] [place] [address], [place] [address] Nov, [facility] [address] [id number] [address] [place] [address], [place] [address] Nov, [facility] [address] [id number] [address] [place] [address], [place] [address] Nov, [facility] [address] [id number] [address] [place] [address], [place] [address] Nov, [facility] [address] [id number] [address] [place] [address], [place] [address] Nov, [facility] [address] [id number] [address] [place] [address], [place] [address] Nov, [facility] [address] [id number] [address] [place] [address], [place] [address] Nov, [facility] [address] [id number] [address] [place] [address], [place] [address] Nov, [facility] [address] [id number] [address] [place] [address], [place] [address] 15 Nov, 2013 [facility] [address] [id number] [address] [place] [address], [place] [address] 30 Oct, 2013 [facility] [address] [id number] [address] [place] [address], [place] [address] 30 Oct, 2013 [facility] [address] [id number] [address] [place] [address], [place] [address] Oct, [facility] [address] [id number] [address] [place] [address], [place] [address] Oct, [facility] [address] [id number] [address] [place] [address], [place] [address] Oct, [facility] [address] [id number] [address] [place] [address], [place] [address] Oct, [facility] [address] [id number] [address] [place] [address], [place] [address] 18 Oct, 2013 [facility] [address] [id number] [address] [place] [address], [place] [address] 18 Oct, 2013 [facility] [address] [id number] [address] [place] [address], [place] [address] 17 Oct, 2013 [facility] [address] [id number] [address] [place] [address], [place] [address] 17 Oct, 2013 [facility] [address] [id number] [address] [place] [address], [place] [address] 03 Oct, 2013 [facility] [address] [id number] [address] [place] [address], [place] [address] 03 Oct, 2013 [facility] [address] [id number] [address] [place] [address], [place] [address] 02 Oct, 2013 [facility] [address] [id number] [address] [place] [address], [place] [address] 02 Oct, 2013 [facility] [address] [id number] [address] [place] [address], [place] [address] 14 Sep, 2013 [facility] [address] [id number] [address] [place] [address], [place] [address] 14 Sep, 2013 [facility] [address] [id number] [address] [place] [address], [place] [address] Sep, [facility] [address] [id number] [address] [place] [address], [place] [address] 05 Sep, 2013 [facility] [address] [id number] [address] [place] [address], [place] [address] Sep, [facility] [address] [id number] [address] [place] [address], [place] [address] Sep, [facility] [address] [id number] [address] [place] [address], [place] [address] Sep, [facility] [address] [id number] [address] [place] [address], [place] [address] Sep, [facility] [address] [id number] [address] [place] [address], [place] [address] Sep, [facility] [address] [id number] [address] [place] [address], [place] [address] Sep, [facility] [address] [id number] [address] [place] [address], [place] [address] Aug, [facility] [address] [id number] [address] [place] [address], [place] [address] Aug, [facility] [address] [id number] [address] [place] [address] Aug, [facility] [address] [id number] [address] [place] [address], [place] [address] Aug, [facility] [address] [id number] [address] [place] [address], [place] [address] Aug, [facility] [address] [id number] [address] [place] [address], [place] [address] Aug, [facility] [address] [id number] [address] [place] [address] 23 Aug, 2013 [facility] [address] [id number] [address] [place] [address], [place] [address] 23 Aug, 2013 [facility] [address] [id number] [address] [place] [address], [place] [address] 22 Aug, 2013 [facility] [address] [id number] [address] [place] [address], [place] [address] 22 Aug, 2013 [facility] [address] [id number] [address] [place] [address] 18 Aug, 2013 [facility] [address] [id number] [address] [place] [address], [place] [address] 18 Aug, 2013 [facility] [address] [id number] [address] [place] [address] 18 Aug, 2013 [facility] [address] [id number] [address] [place] [address], [place] [address] 18 Aug, 2013 [facility] [address] [id number] [address] [place] [address], [place] [address] 17 Aug, 2013 [facility] [address] [id number] [address] [place] [address], [place] [address] 14 Aug, 2013 [facility] [address] [id number] [address] [place] [address] 14 Aug, 2013 [facility] [address] [id number] [address] [place] [address] Aug, [facility] [address] [id number] [address] [place] [address] 20 Jul, 2012 [facility] [address] [id number] [address] [place] [address], [place] [address] 19 Jul, 2012 [facility] [address] [id number] [address] [place] [address], [place] [address] 18 Jul, 2012 [facility] [address] [id number] [address] [place] [address], [place] [address] 11 Jul, 2012 [facility] [address] [id number] [facility] [place] [address] Jul, [facility] [address] [id number] [address] [place] [address], [place] [address] Jun, [facility] [address] [id number] [address] [place] [address], [place] [address] Jun, [facility] [address] [id number] [address] [place] [address], [place] [address] Jun, [facility] [address] [id number] [address] [place] [address], [place] [address] Jun, [facility] [address] [id number] [address] [place] [address], [place] [address] Jun, [facility] [address] [id number] [address] [place] [address], [place] [address] Jun, [facility] [address] [id number] [address] [place] [address], [place] [address] Jun, [facility] [address] [id number] [address] [place] [address], [place] [address] Jun, [facility] [address] [id number] [address] [place] [address], [place] [address] Jun, [facility] [address] [id number] [address] [place] [address], [place] [address] Jun, [facility] [address] [id number] [address] [place] [address], [place] [address] May, [facility] [address] [id number] [address] [place] [address], [place] [address] May, [facility] [address] [id number] [address] [place] [address], [place] [address] May, [facility] [address] [id number] [address] [place] [address], [place] [address] May, [facility] [address] [id number] [address] [place] [address], [place] [address] May, [facility] [address] [id number] [address] [place] [address], [place] [address] 16 May, 2013 [facility] [address] [id number] [address] [place] [address], [place] [address] May, [facility] [address] [id number] [address] [place] [address], [place] [address] May, [facility] [address] [id number] [address] [place] [address], [place] [address] May, [facility] [address] [id number] [address] [place] [address], [place] [address] Apr, [facility] [address] [id number] [address] [place] [address], [place] [address] Apr, [facility] [address] [id number] [address] [place] [address], [place] [address] Apr, [facility] [address] [id number] [address] [place] [address], [place] [address] Apr, [facility] [address] [id number] [address] [place] [address], [place] [address] Apr, [facility] [address] [id number] [address] [place] [address], [place] [address] Apr, [facility] [address] [id number] [address] [place] [address], [place] [address] Apr, [facility] [address] [id number] [address] [place] [address], [place] [address] March, [facility] [address] [id number] [address] [place] [address], [place] [address] Feb, [facility] [address] [id number] [address] [place] [address], [place] [address] Feb, [facility] [address] [id number] [address] [place] [address], [place] [address] Feb, [facility] [address] [id number] [address] [place] [address] 28 Jan, 2013 [facility] [address] [id number] [address] [place] [address], [place] [address] 21 Jan, 2013 [facility] [address] [id number] [address] [place] [address], [place] [address] 19 Jan, 2013 [facility] [address] [id number] [address] [place] [address], [place] [address] 14 Jan, 2013 [facility] [address] [id number] [address] [place] [address], [place] [address] 12 Jan, 2013 [facility] [address] [id number] [address] [place] [address], [place] [address] 08 Jan, 2013 [facility] [address] [id number] [address] [place] [address], [place] [address] 07 Jan, 2013 [facility] [address] [id number] [address] [place] [address], [place] [address] 04 Jan, 2013 [facility] [address] [id number] [address] [place] [address], [place] [address] 28 Dec, 2012 [facility] [address] [id number] [address] [place] [address], [place] [address] 25 Dec, 2012 [facility] [address] [id number] [address] [place] [address], [place] [address] 13 Dec, 2012 [facility] [address] [id number] [address] [place] [address], [place] [address] 11 Dec, 2012 [facility] [address] [id number] [address] [place] [address], [place] [address] 07 Dec, 2012 [facility] [address] [id number] [address] [place] [address], [place] [address] 06 Dec, 2012 [facility] [address] [id number] [address] [place] [address], [place] [address] 05 Dec, 2012 [facility] [address] [id number] [address] [place] [address], [place] [address] 31 Nov, 2012 [facility] [address] [id number] [address] [place] [address], [place] [address] 24 Nov, 2012 [facility] [address] [id number] [address] [place] [address], [place] [address] 18 Nov, 2012 [facility] [address] [id number] [address] [place] [address], [place] [address] 15 Nov, 2012 [facility] [address] [id number] [address] [place] [address], [place] [address] Nov, [facility] [address] [id number] [address] [place] [address], [place] [address] Nov, [facility] [address] [id number] [address] [place] [address], [place] [address] Nov, [facility] [address] [id number] [address] [place] [address], [place] [address] Oct, [facility] [address] [id number] [address] [place] [address], [place] [address] Oct, [facility] [address] [id number] [address] [place] [address], [place] [address] Oct, [facility] [address] [id number] [address] [place] [address], [place] [address] Oct, [facility] [address] [id number] [address] [place] [address], [place] [address] Oct, [facility] [address] [id number] [address] [place] [address], [place] [address] 17 Oct, 2012 [facility] [address] [id number] [address] [place] [address], [place] [address] Oct, [facility] [address] [id number] [address] [place] [address], [place] [address] 07 Oct, 2012 [facility] [address] [id number] [address] [place] [address], [place] [address] 05 Oct, 2012 [facility] [address] [id number] [address] [place] [address] Oct, [facility] [address] [id number] [address] [place] [address], [place] [address] Oct, [facility] [address] [id number] [address] [place] [address], [place] [address] Oct, [facility] [address] [id number] [address] [place] [address], [place] [address] Sep, [facility] [address] [id number] [address] [place] [address], [place] [address] Sep, [facility] [address] [id number] [address] [place] [address], [place] [address] Sep, [facility] [address] [id number] [address] [place] [address], [place] [address] Sep, [facility] [address] [id number] [address] [place] [address], [place] [address] Sep, [facility] [address] [id number] [address] [place] [address], [place] [address] Sep, [facility] [address] [id number] [address] [place] [address], [place] [address] Sep, [facility] [address] [id number] [address] [place] [address], [place] [address] Sep, [facility] [address] [id number] [address] [place] [address] Sep, [facility] [address] [id number] [address] [place] [address] Sep, [facility] [address] [id number] [address] [place] [address] Sep, [facility] [address] [id number] [address] [place] [address], [place] [address] Aug, [facility] [address] [id number] [address] [place] [address], [place] [address] Aug, [facility] [address] [id number] [address] [place] [address], [place] [address] Aug, [facility] [address] [id number] [address] [place] [address], [place] [address] Aug, [facility] [address] [id number] [address] [place] [address], [place] [address] Aug, [facility] [address] [id number] [address] [place] [address], [place] [address] Aug, [facility] [address] [id number] [address] [place] [address], [place] [address] Aug, [facility] [address] [id number] [address] [place] [address], [place] [address] Aug, [facility] [address] [id number] [address] [place] [address], [place] [address] Aug, [facility] [address] [id number] [address] [place] [address], [place] [address] Aug, [facility] [address] [id number] [address] [place] [address], [place] [address] 22 Jul, 2012 [facility] [address] [id number] [address] [place] [address], [place] [address] 20 Jul, 2012 [facility] [address] [id number] [address] [place] [address], [place] [address] 10 Jul, 2012 [facility] [address] [id number] [address] [place] [address], [place] [address] 06 Jul, 2012 [facility] [address] [id number] [address] [place] [address], [place] [address] 30 Jun, 2012 [facility] [address] [id number] [address] [place] [address], [place] [address] Jun, [facility] [address] [id number] [address] [place] [address], [place] [address] 16 Jun, 2012 [facility] [address] [id number] [address] [place] [address], [place] [address] Jun, [facility] [address] [id number] [facility] [place] [address] Jun, [facility] [address] [id number] [address] [place] [address], [place] [address] Jun, [facility] [address] [id number] [address] [place] [address], [place] [address] Jun, [facility] [address] [id number] [address] [place] [address], [place] [address] May, [facility] [address] [id number] [address] [place] [address], [place] [address] May, [facility] [address] [id number] [address] [place] [address], [place] [address] May, [facility] [address] [id number] [address] [place] [address], [place] [address] May, [facility] [address] [id number] [address] [place] [address], [place] [address] May, [facility] [address] [id number] [address] [place] [address], [place] [address] Apr, [facility] [address] [id number] [address] [place] [address], [place] [address] Apr, [facility] [address] [id number] [address] [place] [address], [place] [address] Apr, [facility] [address] [id number] [address] [place] [address], [place] [address] Apr, [facility] [address] [id number] [address] [place] [address], [place] [address] Apr, [facility] [address] [id number] [address] [place] [address], [place] [address] March, [facility] [address] [id number] [address] [place] [address], [place] [address] March, [facility] [address] [id number] [address] [place] [address], [place] [address] March, [facility] [address] [id number] [address] [place] [address], [place] [address] March, [facility] [address] [id number] [address] [place] [address], [place] [address] March, [facility] [address] [id number] [address] [place] [address], [place] [address] March, [facility] [address] [id number] [address] [place] [address], [place] [address] March, [facility] [address] [id number] [address] [place] [address], [place] [address] March, [facility] [address] [id number] [address] [place] [address], [place] [address] March, [facility] [address] [id number] [address] [place] [address], [place] [address] March, [facility] [address] [id number] [address] [place] [address], [place] [address] 30 Feb, 2012 [facility] [address] [id number] [address] [place] [address], [place] [address] Feb, [facility] [address] [id number] [address] [place] [address], [place] [address] Feb, [facility] [address] [id number] [address] [place] [address], [place] [address] Feb, [facility] [address] [id number] [address] [place] [address], [place] [address] Feb, [facility] [address] [id number] [address] [place] [address], [place] [address] Feb, [facility] [address] [id number] [address] [place] [address], [place] [address] Feb, [facility] [address] [id number] [address] [place] [address], [place] [address] Feb, [facility] [address] [id number] [address] [place] [address], [place] [address] Feb, [facility] [address] [id number] [address] [place] [address], [place] [address] 08 Jan, 2012 [facility] [address] [id number] [address] [place] [address], [place] [address] Jan, [facility] [address] [id number] [address] [place] [address], [place] [id number] 05 Jan, 2012 [facility] [address] [id number] [address] [place] [address], [place] [address] Jan, [facility] [address] [id number] [address] [place] [address], [place] [address] Dec, [facility] [address] [id number] [address] [place] [address], [place] [address] Dec, [facility] [address] [id number] [address] [place] [address], [place] [address] Nov, [facility] [address] [id number] [address] [place] [address], [place] [address] Nov, [facility] [address] [id number] [address] [place] [address], [place] [address] Nov, [facility] [address] [id number] [address] [place] [address], [place] [address] Nov, [facility] [address] [id number] [address] [place] [address], [place] [address] Nov, [facility] [address] [id number] [address] [place] [address], [place] [address] Oct, [facility] [address] [id number] [address] [place] [address], [place] [address] Oct, [facility] [address] [id number] [address] [place] [address], [place] [address] Oct, [facility] [address] [id number] [address] [place] [phone] Oct, [facility] [address] [facility] [id number] [address] [place] [phone] Oct, [facility] [address] [facility] [id number] [address] [place] [phone] Oct, [facility] [address] [facility] [id number] [address] [place] [phone] Oct, [facility] [address] [facility] [id number] [address] [place] [phone] Oct, [facility] [address] [facility] [id number] [address] [place] [phone] Sep, IMMUNIZATIONS No Known Immunizations SOCIAL HISTORY [...] fever, discharged 11/27/2017 11/26/2017 Hospitalization History ED [place]- Went Unrepsonsive, Hit head 2017 Hospitalization History ED [place]- Back Pain 05/05/201 8
--- OUTSIDE RECORDS SUMMARY | 2020-06-18 14:50 | XMS REPORT ---
Author Author Sanjuanita Abdul Doctor Organization [facility] Address Unknown Phone Unavailable Care Team Providers Care Electrician Rectifier Maintenance Name Role Phone Migration, Doctor Unavailable Unavailable PROBLEMS Type Condition ICD9-CM Code SSI29-YD Code Onset Dates Condition S tatus SNOMED Code Problem Hypertension I10 Active 9223061 3 Problem Hyperlipidemia E78.5 Active 29244 004 Problem Coronary artery disease I25.10 Active 45720951 Problem Low back pain M54.5 Active 427010 009 Problem Other chronic pain G89.29 Active 8 3262772 Problem Ventral hernia without obstruction or gangrene K43 .9 Active 465944842 Problem Type 2 diabetes mellitus wit hout complication, without long-term current use of insulin E11.9 Active 849151139 Problem Anxiety F41.9 Active 91203738 Problem Peripheral vascular disease I73.9 Ac tive 096671950 Problem Insomnia G47.00 Active 213095324 Problem Microcytic anemia D50.9 Active 23 4098694 Problem Pharyngeal dysphagia R13.13 Active [id number] Problem Other iron deficiency anemia D50.8 A ctive 32394587 Problem Reactive depression F32.9 Active 69307668 Problem Paroxysmal atrial fibrillation I48.0 Active 908059735 Problem 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 Active 28647045 Problem Encounter for suprapubic catheter care Z43.5 Active 792757136 Problem Neurogenic bladder N31.9 Active 3 [id number] ALLERGIES No Information ENCOUNTERS Encounter Location Date Diagnosis [facility] [address] [facility] [id number] [address] [place] [address] Jan, Anxiety F41.9 and Strain of right shoulder, subsequent encounter S46.911D [facility] [address] [facility] [id number] [address] [place] [address] Jan, Via [facility] [address] [facility] [address] [address] [place] [id number] Jan, Neurogenic bladder N31.9 [facility] [address] [facility] [id number] [address] [place] [address] Dec, [place] [address] [id number] [address] [place] [address] Dec, [place] [address] [id number] [address] [place] [address] Dec, Anxiety F41.9 and Strain of right shoulder, subsequent encounter S46.911D [place] [address] [id number] [address] [place] [address] 10 Dec, 2019 Other iron deficiency anemia D50.8 [place] [address] [id number] [address] [place] [address] 04 Dec, 2019 Via [facility] [address] [place] [id number] Dec, Encounter for suprapubic catheter care Z 43.5 and Microcytic anemia D50.9 [place] [address] [id number] [address] [place] [address] Dec, [place] [address] [id number] [address] [place] [address] Nov, Anxiety F41.9 and Strain of right shoulder, subsequent encounter S46.911D [place] [address] [id number] [address] [place] [address] Nov, Hypertension I10 Via [facility] [address] [place] [id number] Nov, Pneumonia of both lungs due to infectiou s organism, unspecified part of lung J18.9 and Suprapubic catheter Z93.59 [place] [address] [id number] [address] [place] [address] Nov, Hypertension I10 and Reactiv e depression F32.9 [place] [address] [id number] [address] [place] [address] Oct, Strain of right shoulder, scherer bsequent encounter S46.911D and Anxiety F41.9 [facility] [address] [id number] [address] [place] [address] 16 Oct, 2019 Via [facility] [address] [place] [id number] Oct, Suprapubic catheter Z93.59 and Candidias is, intertriginous B37.2 [facility] [address] [id number] [address] [place] [address] Oct, Suprapubic catheter Z93.59 [facility] [address] [id number] [address] [place] [address] Oct, Anxiety F41.9 and Strain of right shoulder, subsequent encounter S46.911D [facility] [address] [id number] [address] [place] [address] Sep, [facility] [address] [id number] [address] [place] [address] Sep, [facility] [address] [id number] [address] [place] [address] Sep, Via [facility] [address] [place] [id number] Sep, Suprapubic catheter Z93.59 [facility] [address] [id number] [address] [place] [address] Sep, Anxiety F41.9 and Strain of right shoulder, subsequent encounter S46.911D [facility] [address] [id number] [address] [place] [address] Aug, [facility] [address] [id number] [address] [place] [address] Aug, [facility] [address] [id number] [address] [place] [address] Aug, Anxiety F41.9 and Strain of right shoulder, subsequent encounter S46.911D [facility] [address] [place] [id number] Aug, Suprapubic catheter Z93.59 [facility] [address] [id number] [address] [place] [address] Jul, Strain of right shoulder, scherer bsequent encounter S46.911D and Anxiety F41.9 [facility] [address] [id number] [address] [place] [address] Jul, Anxiety F41.9 [place] [address] [id number] [address] [place] [address] Jun, [place] [address] [id number] [address] [place] [address] Jun, [place] [address] [id number] [address] [place] [address] Jun, [place] [address] [id number] [address] [place] [address] Jun, Strain of right shoulder, scherer bsequent encounter S46.911D [place] [address] [id number] [address] [place] [address] Jun, Strain of right shoulder, scherer bsequent encounter S46.911D [place] [address] [id number] [address] [place] [address] Jun, Anxiety F41.9 Via [facility] [address] [place] [id number] Jun, Neurogenic bladder N31.9 and Anxiety F41 .9 [facility] [address] [place] [id number] May, Anxiety F41.9 [place] [address] [id number] [address] [place] [address] May, Dysuria R30.0 [place] [address] [id number] [address] [place] [address] May, Strain of right shoulder, scherer bsequent encounter S46.911D and Anxiety F41.9 [place] [address] [id number] [address] [place] [address] 27 Apr, 2019 Via [facility] [employer] [facility] [address] [place] [id number] 18 Apr, 2019 Strain of right shoulder, subsequent enc ounter S46.911D [facility] [address] [id number] [address] [place] [address] 14 Apr, 2019 Strain of right shoulder, scherer bsequent encounter S46.911D and Anxiety F41.9 Via [facility] [address] [place] [id number] Apr, Type 2 diabetes mellitus without complic ation, without long-term current use of insulin E11.9 and Neurogenic bladder N31.9 [facility] [address] [place] [id number] Apr, Strain of right shoulder, subsequent enc ounter S46.911D ; History of GI bleed Z87.19 ; Neurogenic bladder N31.9 and Reactive depression F32.9 [place] [address] [id number] [address] [place] [address] Apr, Acute pain of left shoulder M25.512 [place] [address] [id number] [address] [place] [address] Apr, [place] [address] [id number] [address] [place] [address] Apr, Anxiety F41.9 and Other sheet hanger 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 [facility] [address] [place] [id number] March, Gastrointestinal hemorrhage associated w ith acute gastritis K29.01 [place] [address] [id number] [address] [place] [address] March, Via [facility] Blood [address] [place] [id number] March, Bronchitis J40 [place] [address] [id number] [address] [place] [address] March, Cough R05 [place] [address] [id number] [address] [place] [address] March, Other chronic pain G89.29 [facility] [address] [id number] [address] [place] [address] March, Anxiety F41.9 [facility] [address] [id number] [address] [place] [address] March, [facility] [address] [id number] [address] [place] [address] Feb, Other chronic pain G89.29 [facility] [address] [id number] [address] [place] [address] Feb, Anxiety F41.9 [facility] [address] [id number] [address] [place] [address] Feb, Other chronic pain G89.29 Via [facility] [address] [place] [id number] Feb, Neurogenic bladder N31.9 and Suprapubic catheter Z93.59 [facility] [address] [id number] [address] [place] [address] Jan, Anxiety F41.9 [facility] [address] [id number] [address] [place] [address] Dec, Anxiety F41.9 [facility] [address] [id number] [address] [place] [address] Dec, Other chronic pain G89.29 an d Anxiety F41.9 [facility] [address] [id number] [address] [place] [address] Dec, Via [facility] [address] [place] [id number] Dec, Neurogenic bladder N31.9 and Suprapubic catheter Z93.59 [facility] [address] [id number] [address] [place] [address] Nov, Other chronic pain G89.29 an d Anxiety F41.9 [facility] [address] [id number] [address] [place] [address] Nov, Via [facility] [address] [place] [id number] Nov, Suprapubic catheter Z93.59 [facility] [address] [id number] [address] [place] [address] Oct, Other chronic pain G89.29 an d Anxiety F41.9 [facility] [address] [id number] [address] [place] [address] Oct, [facility] [address] [id number] [address] [place] [address] Oct, Suprapubic catheter Z93.59 [facility] [address] [id number] [address] [place] [address] Oct, Via [facility] [address] [place] [id number] Oct, [facility] [address] [id number] [address] [place] [address] Oct, Anxiety F41.9 [facility] [address] [id number] [address] [place] [address] Oct, Anxiety F41.9 Via [facility] [address] [place] [id number] Oct, Other chronic pain G89.29 [facility] [address] [id number] [address] [place] [address] Sep, Other chronic pain G89.29 Via [facility] [employer] [facility] [address] [place] [id number] Sep, Suprapubic catheter Z93.59 and Cervicalg ia M54.2 [facility] [address] [id number] [address] [place] [address] Sep, [facility] [address] [id number] [address] [place] [address] Sep, [facility] [address] [id number] [address] [place] [address] Sep, Via [facility] [address] [place] [id number] Aug, Cystitis N30.90 [facility] [address] [id number] [address] [place] [address] Aug, [facility] [address] [id number] [address] [place] [address] Aug, Other chronic pain G89.29 [facility] [address] [id number] [address] [place] [address] Aug, Via [facility] [address] [place] [id number] Aug, Encounter for suprapubic catheter care Z 43.5 [facility] [address] [id number] [address] [place] [address] Jul, Via [facility] [address] [place] [id number] Jul, [facility] [address] [id number] [address] [place] [address] Jul, Other chronic pain G89.29 [facility] [address] [id number] [address] [place] [address] Jul, [facility] [address] [id number] [address] [place] [address] Jul, Via [facility] [address] [place] [id number] Jun, 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 [facility] [address] [id number] [address] [place] [address] Jun, Other chronic pain G89.29 [facility] [address] [id number] [address] [place] [address] Jun, Via [facility] [address] [place] [id number] May, Anxiety F41.9 ; Type 2 diabetes mellitus without complication, without long-term current use of insulin E11.9 ; Hypertension I10 ; Low back pain M54.5 ; Paroxysmal atrial fibrillation I48.0 and 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 [facility] [address] [id number] [address] [place] [address] May, Other chronic pain G89.29 [facility] [address] [place] [id number] May, Low back pain M54.5 [facility] [address] [id number] [address] [place] [address] May, [facility] [address] [id number] [address] [place] [address] Apr, Other chronic pain G89.29 [facility] [address] [id number] [address] [place] [address] Apr, [facility] [address] [id number] [address] [place] [address] Apr, Via [facility] [address] [place] [id number] Apr, Closed compression fracture of L3 lumbar vertebra with routine healing, subsequent encounter S32.030D [facility] [address] [place] [id number] Apr, Low back pain M54.5 Via [facility] [address] [place] [id number] Apr, Coccydynia M53.3 [facility] [address] [id number] [address] [place] [address] March, [facility] [address] [id number] [address] [place] [address] March, Other chronic pain G89.29 [facility] [address] [id number] [address] [place] [address] March, [facility] [address] [id number] [address] [place] [address] March, [facility] [address] [id number] [address] [place] [address] Feb, [facility] [address] [id number] [address] [place] [address] Feb, Other chronic pain G89.29 Via [facility] [address] [place] [id number] Feb, Other chronic pain G89.29 and Anxiety F4 1.9 [facility] [address] [id number] [address] [place] [address] Feb, [facility] [address] [id number] [address] [place] [address] Jan, [facility] [address] [id number] [address] [place] [address] Jan, [facility] [address] [id number] [address] [place] [address] Jan, [facility] [address] [id number] [address] [place] [address] Jan, [facility] [address] [id number] [address] [place] [address] Dec, Via [facility] [address] [place] [id number] Dec, Peripheral vascular disease I73.9 ; 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 ; Other chronic pain G89.29 ; Anxiety F41.9 ; Reactive depression F32.9 ; Insomnia G47.00 and Type 2 diabetes mellitus without complication, without long-term current use of insulin E11.9 [facility] [place] [address] [id number] [address] Nov, [facility] [address] [id number] [place] [id number] Nov, Anxiety F41.9 [facility] [address] [id number] [address] [place] [address] Nov, [facility] [address] [id number] [place] [id number] Nov, Anxiety F41.9 [facility] [address] [place] [id number] Nov, Status post surgery Z98.890 ; Confused R 41.0 ; Anxiety F41.9 and Other chronic pain G89.29 [facility] [address] [id number] [place] [id number] Nov, Other chronic pain G89.29 [facility] [address] [facility] [id number] [address] [place] [address] Oct, [facility] [address] [id number] [place] [id number] Oct, Other chronic pain G89.29 [facility] [address] [facility] [id number] [address] [place] [address] Oct, Anxiety F41.9 [facility] [address] [id number] [place] [id number] Sep, Other chronic pain G89.29 [facility] [address] [id number] [place] [id number] Sep, Via [facility] [address] [place] [id number] Aug, Dysuria R30.0 and Anxiety F41.9 [facility] [address] [id number] [address] [place] [address] Aug, [facility] [address] [id number] [place] [id number] Aug, Other chronic pain G89.29 [facility] [address] [facility] [id number] [address] [place] [address] Jul, Other chronic pain G89.29 [facility] [address] [id number] [place] [id number] Jun, [facility] [address] [id number] [place] [id number] Jun, Other chronic pain G89.29 [facility] [address] [id number] [address] [place] [address] Jun, [facility] [address] [facility] [id number] [address] [place] [address] May, Other chronic pain G89.29 [facility] [address] [facility] [id number] [address] [place] [address] Apr, Other chronic pain G89.29 Via [facility] [address] [place] [id number] Apr, Reactive depression F32.9 and Pharyngeal dysphagia R13.13 [facility] [address] [facility] [id number] [address] [place] [address] Apr, Urinary tract infection with out hematuria, site unspecified N39.0 [facility] [address] [facility] [id number] [address] [place] [address] March, Other chronic pain G89.29 [facility] [address] [facility] [id number] [address] [place] [address] Feb, Other chronic pain G89.29 [facility] [address] [facility] [id number] [address] [place] [address] Feb, [facility] [address] [id number] [place] [id number] Feb, Via [facility] [address] [place] [id number] Feb, Dysuria R30.0 and Ventral hernia without obstruction or gangrene K43.9 [facility] [address] [id number] [address] [place] [address] Jan, Other chronic pain G89.29 [facility] [address] [id number] [place] [id number] Dec, Other chronic pain G89.29 [facility] [address] [id number] [address] [place] [address] Nov, Other chronic pain G89.29 Via [facility] [address] [place] [id number] Nov, Lymphadenitis I88.9 [facility] [address] [id number] [address] [place] [address] Nov, Other chronic pain G89.29 [facility] [address] [id number] [address] [place] [address] Nov, [facility] [address] [id number] [place] [id number] Nov, Other chronic pain G89.29 Via [facility] [address] [place] [id number] Oct, Low back pain M54.5 ; Hypertension I10 a nd Type 2 diabetes mellitus without complication, without long-term current use of insulin E11.9 [facility] [address] [id number] [address] [place] [address] Oct, [facility] [address] [id number] [address] [place] [address] Oct, [facility] [address] [id number] [address] [place] [address] Oct, [facility] [address] [id number] [address] [place] [address] Oct, [facility] [address] [id number] [address] [place] [address] Sep, [facility] [address] [id number] [address] [place] [address] Sep, [facility] [address] [facility] [id number] [address] [place] [address] Aug, Other chronic pain G89.29 [facility] [address] [id number] [address] [place] [address] Jul, [facility] [address] [id number] [address] [place] [address] Jul, [facility] [address] [id number] [address] [place] [address] Jul, [facility] [address] [id number] [address] [place] [id number] Jun, [facility] [address] [id number] [address] [place] [id number] Jun, Via [facility] [address] [place] [id number] Jun, Low back pain M54.5 ; Other chronic pain G89.29 and Coronary artery disease I25.10 [facility] [address] [id number] [address] [place] [id number] Jun, [facility] [address] [id number] [address] [place] [id number] May, [facility] [address] [id number] [address] [place] [id number] May, [facility] [address] [id number] [address] [place] [id number] May, Other chronic pain G89.29 [facility] [address] [id number] [address] [place] [id number] May, [facility] [address] [id number] [address] [place] [id number] Apr, [facility] [address] [id number] [address] [place] [id number] 17 Apr, 2016 Acute cystitis without hemat uria N30.00 [facility] [address] [id number] [address] [place] [address] 16 Apr, 2016 Acute cystitis without hemat uria N30.00 ; Coronary artery disease I25.10 ; Low back pain M54.5 and Other chronic pain G89.29 [facility] [address] [id number] [address] [place] [address] 13 Apr, 2016 Other chronic pain G89.29 [facility] [address] [id number] [address] [place] [address] March, Other chronic pain G89.29 [facility] [address] [id number] [address] [place] [address] 18 Feb, 2016 [facility] [address] [id number] [address] [place] [address] 15 Feb, 2016 Arthritis M19.90 [facility] [address] [id number] [address] [place] [address] Feb, [facility] [address] [id number] [address] [place] [address] 30 Jan, 2016 [facility] [address] [id number] [address] [place] [address] Jan, [facility] [address] [id number] [address] [place] [address] Jan, Other chronic pain G89.29 [facility] [address] [id number] [address] [place] [address] Jan, Hypertension I10 ; Coronary artery disease I25.10 and Insomnia G47.00 [facility] [address] [facility] [id number] [address] [place] [address] Jan, [facility] [address] [id number] [address] [place] [address] Dec, Right hip pain M25.551 [facility] [address] [id number] [address] [place] [address] Dec, [facility] [address] [facility] [id number] [address] [place] [address] Dec, [facility] [address] [facility] [id number] [address] [place] [address] Dec, [facility] [address] [id number] [address] [place] [address] Dec, Other chronic pain G89.29 [facility] [address] [id number] [address] [place] [address] Dec, [facility] [address] [id number] [address] [place] [address] Nov, [facility] [address] [id number] [address] [place] [address] Nov, Other chronic pain G89.29 [facility] [address] [id number] [address] [place] [address] Nov, Right hip pain M25.551 and C oronary artery disease I25.10 [facility] [address] [id number] [address] [place] [address] Nov, Other chronic pain G89.29 [facility] [address] [id number] [address] [place] [address] Oct, [facility] [address] [id number] [address] [place] [address] Oct, [facility] [address] [id number] [address] [place] [address] Sep, [facility] [address] [id number] [address] [place] [address] Sep, [facility] [address] [id number] [address] [place] [address] Aug, [facility] [address] [id number] [address] [place] [address] Aug, Hypertension I10 ; Coronary artery disease I25.10 and Arthritis M19.90 [facility] [address] [id number] [address] [place] [address] Jun, [facility] [address] [id number] [address] [place] [address] Jun, Essential hypertension, jayson gn 401.1 ; Other chronic pain 338.29 and Chronic airway obstruction, not elsewhere classified 496 [facility] [address] [id number] [address] [place] [address], [place] [address] Jun, [facility] [address] [id number] [address] [place] [address], [place] [address] Jun, [facility] [address] [id number] [address] [place] [address], [place] [address] Jun, [facility] [address] [id number] [address] [place] [address], [place] [address] May, [facility] [address] [id number] [address] [place] [address], [place] [address] May, [facility] [address] [id number] [address] [place] [address], [place] [address] Apr, [facility] [address] [id number] [address] [place] [address], [place] [address] Apr, [facility] [address] [id number] [address] [place] [address], [place] [address] Apr, [facility] [address] [id number] [address] [place] [address], [place] [address] March, [facility] [address] [id number] [address] [place] [address] March, [facility] [address] [id number] [address] [place] [address], [place] [address] March, [facility] [address] [id number] [address] [place] [address] March, [facility] [address] [id number] [address] [place] [address] March, Sialadenitis 527.2 [facility] [address] [id number] [address] [place] [address] Feb, [facility] [address] [id number] [address] [place] [address] Feb, [facility] [address] [id number] [address] [place] [address], [place] [address] 29 Feb, 2015 [facility] [address] [id number] [address] [place] [address], [place] [address] 14 Feb, 2015 [facility] [address] [id number] [address] [place] [address], [place] [address] Feb, [facility] [address] [id number] [address] [place] [address], [place] [address] Jan, [facility] [address] [id number] [address] [place] [address], [place] [address] Jan, [facility] [address] [id number] [address] [place] [address], [place] [address] Jan, [facility] [address] [id number] [address] [place] [address], [place] [address] Jan, [facility] [address] [id number] [address] [place] [address], [place] [address] Jan, [facility] [address] [id number] [address] [place] [address], [place] [address] Jan, [facility] [address] [id number] [address] [place] [address], [place] [address] Dec, 2014 [facility] [address] [id number] [address] [place] [address], [place] [address] Dec, 2014 [facility] [address] [id number] [address] [place] [address], [place] [address] Dec, 2014 [facility] [address] [id number] [address] [place] [address], [place] [address] Dec, 2014 [facility] [address] [id number] [address] [place] [address], [place] [address] Dec, 2014 [facility] [address] [id number] [address] [place] [address] [address] Dec2014 [facility] [address] [id number] [address] [place] [address], [place] [address] Nov, [facility] [address] [id number] [address] [place] [address], [place] [address] Nov, [facility] [address] [id number] [address] [place] [address], [place] [address] Nov, [facility] [address] [id number] [address] [place] [address], [place] [address] Nov, [facility] [address] [id number] [address] [place] [address], [place] [address] Nov, [facility] [address] [id number] [address] [place] [address], [place] [address] Nov, [facility] [address] [id number] [address] [place] [address], [place] [address] Nov, [facility] [address] [id number] [address] [place] [address], [place] [address] Nov, [facility] [address] [id number] [address] [place] [address], [place] [address] Nov, [facility] [address] [id number] [address] [place] [address], [place] [address] Nov, [facility] [address] [id number] [address] [place] [address], [place] [address] Nov, [facility] [address] [id number] [address] [place] [address], [place] [address] Nov, [facility] [address] [id number] [address] [place] [address], [place] [address] Nov, [facility] [address] [id number] [address] [place] [address], [place] [address] Nov, [facility] [address] [id number] [address] [place] [address], [place] [address] Oct, [facility] [address] [id number] [address] [place] [address], [place] [address] 19 Oct, 2014 [facility] [address] [id number] [address] [place] [address], [place] [address] 19 Oct, 2014 [facility] [address] [id number] [address] [place] [address], [place] [address] 18 Oct, 2014 [facility] [address] [id number] [address] [place] [address], [place] [address] 18 Oct, 2014 [facility] [address] [id number] [address] [place] [address], [place] [address] Oct, [facility] [address] [id number] [address] [place] [address], [place] [address] 17 Oct, 2014 [facility] [address] [id number] [address] [place] [address], [place] [address] Oct, [facility] [address] [id number] [address] [place] [address], [place] [address] Oct, [facility] [address] [id number] [address] [place] [address], [place] [address] Sep, [facility] [address] [id number] [address] [place] [address], [place] [address] Sep, [facility] [address] [id number] [address] [place] [address], [place] [address] Sep, [facility] [address] [id number] [address] [place] [address], [place] [address] Sep, [facility] [address] [id number] [address] [place] [address], [place] [address] Sep, [facility] [address] [id number] [address] [place] [address], [place] [address] Sep, [facility] [address] [id number] [address] [place] [address], [place] [address] Sep, [facility] [address] [id number] [address] [place] [address], [place] [address] Sep, [facility] [address] [id number] [address] [place] [address], [place] [address] Sep, [facility] [address] [id number] [address] [place] [address], [place] [address] Sep, [facility] [address] [id number] [address] [place] [address], [place] [address] Sep, [facility] [address] [id number] [address] [place] [address], [place] [address] Sep, [facility] [address] [id number] [address] [place] [address], [place] [address] Aug, [facility] [address] [id number] [address] [place] [address], [place] [address] Aug, [facility] [address] [id number] [address] [place] [address], [place] [address] Aug, [facility] [address] [id number] [address] [place] [address], [place] [address] Aug, [facility] [address] [id number] [address] [place] [address], [place] [address] Aug, [facility] [address] [id number] [address] [place] [address], [place] [address] Aug, [facility] [address] [id number] [address] [place] [address], [place] [address] Aug, [facility] [address] [id number] [address] [place] [address], [place] [address] Aug, [facility] [address] [id number] [address] [place] [address], [place] [address] 30 Jul, 2014 [facility] [address] [id number] [address] [place] [address], [place] [address] 30 Jul, 2014 [facility] [address] [id number] [address] [place] [address], [place] [address] 30 Jul, 2013 [facility] [address] [id number] [address] [place] [address], [place] [address] 30 Jul, 2014 [facility] [address] [id number] [address] [place] [address], [place] [address] Jul, [facility] [address] [id number] [address] [place] [address], [place] [address] Jul, [facility] [address] [id number] [address] [place] [address], [place] [address] 15 Jul, 2014 [facility] [address] [id number] [address] [place] [address], [place] [address] 15 Jul, 2014 [facility] [address] [id number] [address] [place] [address], [place] [address] Jul, [facility] [address] [id number] [address] [place] [address], [place] [address] Jul, [facility] [address] [id number] [address] [place] [address], [place] [address] Jun, [facility] [address] [id number] [address] [place] [address], [place] [address] Jun, [facility] [address] [id number] [address] [place] [address], [place] [address] Jun, [facility] [address] [id number] [address] [place] [address], [place] [address] Jun, [facility] [address] [id number] [address] [place] [address], [place] [address] Jun, [facility] [address] [id number] [address] [place] [address], [place] [address] Jun, [facility] [address] [id number] [address] [place] [address], [place] [address] Jun, [facility] [address] [id number] [address] [place] [address], [place] [address] Jun, [facility] [address] [id number] [address] [place] [address], [place] [address] Jun, [facility] [address] [id number] [address] [place] [address], [place] [address] Jun, [facility] [address] [id number] [address] [place] [address], [place] [address] Jun, [facility] [address] [id number] [address] [place] [address], [place] [address] Jun, [facility] [address] [id number] [address] [place] [address], [place] [address] Jun, [facility] [address] [id number] [address] [place] [address], [place] [address] Jun, [facility] [address] [id number] [address] [place] [address], [place] [address] Jun, [facility] [address] [id number] [address] [place] [address], [place] [address] Jun, [facility] [address] [id number] [address] [place] [address], [place] [address] Jun, [facility] [address] [id number] [address] [place] [address], [place] [address] Jun, [facility] [address] [id number] [address] [place] [address], [place] [address] Jun, [facility] [address] [id number] [address] [place] [address], [place] [address] Jun, [facility] [address] [id number] [address] [place] [address], [place] [address] Jun, [facility] [address] [id number] [address] [place] [address], [place] [address] Jun, [facility] [address] [id number] [address] [place] [address], [place] [address] May, [facility] [address] [id number] [address] [place] [address], [place] [address] May, [facility] [address] [id number] [address] [place] [address], [place] [address] May, [facility] [address] [id number] [facility] [place] [address] May, 2013 [facility] [address] [id number] [facility] [address] May, [facility] [address] [id number] [facility] [address] May, 2013 [facility] [address] [id number] [facility] [address] May, 2013 [facility] [address] [id number] [facility] [address] May, 2013 [facility] [address] [id number] [facility] [address] May, [facility] [address] [id number] [address] [place] [address], [place] [address] May, [facility] [address] [id number] [address] [place] [address], [place] [address] May, [facility] [address] [id number] [address] [place] [address], [place] [address] May, [facility] [address] [id number] [address] [place] [address], [place] [address] May, [facility] [address] [id number] [address] [place] [address], [place] [address] Apr, [facility] [address] [id number] [address] [place] [address], [place] [address] Apr, [facility] [address] [id number] [address] [place] [address], [place] [address] Apr, [facility] [address] [id number] [address] [place] [address], [place] [address] Apr, [facility] [address] [id number] [address] [place] [address], [place] [address] Apr, [facility] [address] [id number] [address] [place] [address], [place] [address] Apr, [facility] [address] [id number] [facility] [address] Apr, [facility] [address] [id number] [facility] [place] [address] Apr, [facility] [address] [id number] [facility] [address] Apr, [facility] [address] [id number] [address] [place] [address], [place] [address] March, [facility] [address] [id number] [address] [place] [address], [place] [address] March, [facility] [address] [id number] [address] [place] [address], [place] [address] March, [facility] [address] [id number] [address] [place] [address], [place] [address] March, [facility] [address] [id number] [address] [place] [address], [place] [address] March, [facility] [address] [id number] [address] [place] [address], [place] [address] March, [facility] [address] [id number] [address] [place] [address], [place] [address] March, [facility] [address] [id number] [address] [place] [address], [place] [address] March, [facility] [address] [id number] [address] [place] [address], [place] [address] March, [facility] [address] [id number] [address] [place] [address], [place] [address] March, [facility] [address] [id number] [address] [place] [address], [place] [address] March, [facility] [address] [id number] [address] [place] [address], [place] [address] March, [facility] [address] [id number] [address] [place] [address], [place] [address] March, [facility] [address] [id number] [address] [place] [address], [place] [address] March, [facility] [address] [id number] [address] [place] [address], [place] [address] March, [facility] [address] [id number] [address] [place] [address], [place] [address] March, [facility] [address] [id number] [address] [place] [address], [place] [address] March, [facility] [address] [id number] [address] [place] [address], [place] [address] March, [facility] [address] [id number] [address] [place] [address], [place] [address] March, [facility] [address] [id number] [address] [place] [address], [place] [address] March, [facility] [address] [id number] [address] [place] [address], [place] [address] Feb, [facility] [address] [id number] [address] [place] [address], [place] [address] Feb, [facility] [address] [id number] [address] [place] [address], [place] [address] Feb, [facility] [address] [id number] [address] [place] [address], [place] [address] Feb, [facility] [address] [id number] [address] [place] [address], [place] [address] Feb, [facility] [address] [id number] [address] [place] [address], [place] [address] Feb, [facility] [address] [id number] [address] [place] [address], [place] [address] Feb, [facility] [address] [id number] [address] [place] [address], [place] [address] Feb, [facility] [address] [id number] [facility] [place] [address] Jan, [facility] [address] [id number] [facility] [place] [address] Jan, [facility] [address] [id number] [facility] [place] [address] Jan, [facility] [address] [id number] [facility] [place] [address] 24 Jan, 2014 [facility] [address] [id number] [address] [place] [address], [place] [address] Jan, [facility] [address] [id number] [address] [place] [address], [place] [address] Jan, [facility] [address] [id number] [address] [place] [address], [place] [address] Jan, [facility] [address] [id number] [address] [place] [address], [place] [address] Jan, [facility] [address] [id number] [address] [place] [address], [place] [address] Jan, [facility] [address] [id number] [address] [place] [address], [place] [address] Jan, [facility] [address] [id number] [address] [place] [address], [place] [address] Dec, [facility] [address] [id number] [address] [place] [address], [place] [address] Dec, [facility] [address] [id number] [address] [place] [address], [place] [address] Dec, [facility] [address] [id number] [address] [place] [address] [address] 2013 [facility] [address] [id number] [address] [place] [address], [place] [address] Dec, [facility] [address] [id number] [address] [place] [address], [place] [address] Dec, [facility] [address] [id number] [address] [place] [address], [place] [address] Dec, [facility] [address] [id number] [address] [place] [address], [place] [address] Dec, [facility] [address] [id number] [address] [place] [address], [place] [address] Nov, [facility] [address] [id number] [address] [place] [address], [place] [address] Nov, [facility] [address] [id number] [address] [place] [address], [place] [address] Nov, [facility] [address] [id number] [address] [place] [address], [place] [address] Nov, [facility] [address] [id number] [address] [place] [address], [place] [address] Nov, [facility] [address] [id number] [address] [place] [address], [place] [address] Nov, [facility] [address] [id number] [address] [place] [address], [place] [address] Nov, [facility] [address] [id number] [address] [place] [address], [place] [address] Nov, [facility] [address] [id number] [address] [place] [address], [place] [address] Nov, [facility] [address] [id number] [address] [place] [address], [place] [address] Nov, [facility] [address] [id number] [address] [place] [address], [place] [address] Nov, [facility] [address] [id number] [address] [place] [address], [place] [address] Nov, [facility] [address] [id number] [address] [place] [address], [place] [address] Nov, [facility] [address] [id number] [address] [place] [address], [place] [address] 30 Oct, 2013 [facility] [address] [id number] [address] [place] [address], [place] [address] Oct, [facility] [address] [id number] [address] [place] [address], [place] [address] Oct, [facility] [address] [id number] [address] [place] [address], [place] [address] Oct, [facility] [address] [id number] [address] [place] [address], [place] [address] Oct, [facility] [address] [id number] [address] [place] [address], [place] [address] Oct, [facility] [address] [id number] [address] [place] [address], [place] [address] Oct, [facility] [address] [id number] [address] [place] [address], [place] [address] Oct, [facility] [address] [id number] [address] [place] [address], [place] [address] Oct, [facility] [address] [id number] [address] [place] [address], [place] [address] Oct, [facility] [address] [id number] [address] [place] [address], [place] [address] Oct, [facility] [address] [id number] [address] [place] [address], [place] [address] Oct, [facility] [address] [id number] [address] [place] [address], [place] [address] Oct, [facility] [address] [id number] [address] [place] [address], [place] [address] Oct, [facility] [address] [id number] [address] [place] [address], [place] [address] 14 Sep, 2013 [facility] [address] [id number] [address] [place] [address], [place] [address] Sep, [facility] [address] [id number] [address] [place] [address], [place] [address] Sep, [facility] [address] [id number] [address] [place] [address] Sep, [facility] [address] [id number] [address] [place] [address] Sep, [facility] [address] [id number] [address] [place] [address] Sep, [facility] [address] [id number] [address] [place] [address], [place] [address] Sep, [facility] [address] [id number] [address] [place] [address] Sep, [facility] [address] [id number] [address] [place] [address] Sep, [facility] [address] [id number] [address] [place] [address] Sep, [facility] [address] [id number] [address] [place] [address] Aug, [facility] [address] [id number] [address] [place] [address] Aug, [facility] [address] [id number] [address] [place] [address] Aug, [facility] [address] [id number] [address] [place] [address] Aug, [facility] [address] [id number] [address] [place] [address], [place] [address] Aug, [facility] [address] [id number] [address] [place] [address] Aug, [facility] [address] [id number] [address] [place] [address] Aug, [facility] [address] [id number] [address] [place] [address], [place] [address] 23 Aug, 2012 [facility] [address] [id number] [address] [place] [address], [place] [address] 22 Aug, 2012 [facility] [address] [id number] [address] [place] [address], [place] [address] 22 Aug, 2012 [facility] [address] [id number] [address] [place] [address], [place] [address] 18 Aug, 2012 [facility] [address] [id number] [address] [place] [address], [place] [address] 18 Aug, 2012 [facility] [address] [id number] [address] [place] [address], [place] [address] 18 Aug, 2013 [facility] [address] [id number] [address] [place] [address], [place] [address] 18 Aug, 2013 [facility] [address] [id number] [address] [place] [address], [place] [address] 17 Aug, 2012 [facility] [address] [id number] [address] [place] [address], [place] [address] 14 Aug, 2013 [facility] [address] [id number] [address] [place] [address], [place] [address] 14 Aug, 2013 [facility] [address] [id number] [address] [place] [address], [place] [address] 01 Aug, 2013 [facility] [address] [id number] [address] [place] [address], [place] [address] 20 Jul, 2012 [facility] [address] [id number] [address] [place] [address], [place] [address] 19 Sep, 2012 [facility] [address] [id number] [address] [place] [address], [place] [address] 18 Sep, 2012 [facility] [address] [id number] [address] [place] [address], [place] [address] 11 Jul, 2012 [facility] [address] [id number] [address] [place] [address], [place] [address] Jul, [facility] [address] [id number] [address] [place] [address], [place] [address] Jun, [facility] [address] [id number] [address] [place] [address], [place] [address] Jun, [facility] [address] [id number] [address] [place] [address], [place] [address] Jun, [facility] [address] [id number] [address] [place] [address], [place] [address] Jun, [facility] [address] [id number] [address] [place] [address], [place] [address] Jun, [facility] [address] [id number] [address] [place] [address], [place] [address] Jun, [facility] [address] [id number] [address] [place] [address], [place] [address] Jun, [facility] [address] [id number] [address] [place] [address], [place] [address] Jun, [facility] [address] [id number] [address] [place] [address], [place] [address] Jun, [facility] [address] [id number] [address] [place] [address], [place] [address] Jun, [facility] [address] [id number] [address] [place] [address], [place] [address] May, [facility] [address] [id number] [address] [place] [address], [place] [address] May, [facility] [address] [id number] [address] [place] [address], [place] [address] May, [facility] [address] [id number] [address] [place] [address], [place] [address] May, [facility] [address] [id number] [address] [place] [address], [place] [address] May, [facility] [address] [id number] [address] [place] [address], [place] [address] 16 May, 2013 [facility] [address] [id number] [address] [place] [address], [place] [address] May, [facility] [address] [id number] [address] [place] [address], [place] [address] May, [facility] [address] [id number] [address] [place] [address], [place] [address] May, [facility] [address] [id number] [address] [place] [address], [place] [address] Apr, [facility] [address] [id number] [address] [place] [address], [place] [address] Apr, [facility] [address] [id number] [address] [place] [address], [place] [address] Apr, [facility] [address] [id number] [address] [place] [address], [place] [address] Apr, [facility] [address] [id number] [address] [place] [address], [place] [address] Apr, [facility] [address] [id number] [address] [place] [address], [place] [address] Apr, [facility] [address] [id number] [address] [place] [address], [place] [address] Apr, [facility] [address] [id number] [address] [place] [address], [place] [address] March, [facility] [address] [id number] [address] [place] [address], [place] [address] Feb, [facility] [address] [id number] [address] [place] [address], [place] [address] Feb, [facility] [address] [id number] [address] [place] [address], [place] [address] Feb, [facility] [address] [id number] [address] [place] [address], [place] [address] Jan, [facility] [address] [id number] [address] [place] [address], [place] [address] 21 Jan, 2013 [facility] [address] [id number] [address] [place] [address], [place] [address] 19 Jan, 2013 [facility] [address] [id number] [address] [place] [address], [place] [address] 14 Jan, 2013 [facility] [address] [id number] [address] [place] [address], [place] [address] 12 Jan, 2013 [facility] [address] [id number] [address] [place] [address], [place] [address] 08 Jan, 2013 [facility] [address] [id number] [address] [place] [address], [place] [address] 07 Jan, 2013 [facility] [address] [id number] [address] [place] [address], [place] [address] 04 Jan, 2013 [facility] [address] [id number] [address] [place] [address], [place] [address] 28 Dec, 2012 [facility] [address] [id number] [address] [place] [address], [place] [address] 25 Dec, 2012 [facility] [address] [id number] [address] [place] [address], [place] [address] 13 Dec, 2012 [facility] [address] [id number] [address] [place] [address], [place] [address] 11 Dec, 2012 [facility] [address] [id number] [address] [place] [address], [place] [address] 07 Dec, 2012 [facility] [address] [id number] [address] [place] [address], [place] [address] 06 Dec, 2012 [facility] [address] [id number] [address] [place] [address], [place] [address] 05 Dec, 2012 [facility] [address] [id number] [address] [place] [address], [place] [address] Nov, [facility] [address] [id number] [address] [place] [address], [place] [address] Nov, [facility] [address] [id number] [address] [place] [address], [place] [address] 18 Nov, 2012 [facility] [address] [id number] [address] [place] [address], [place] [address] 15 Nov, 2012 [facility] [address] [id number] [address] [place] [address], [place] [address] Nov, [facility] [address] [id number] [address] [place] [address], [place] [address] Nov, [facility] [address] [id number] [address] [place] [address], [place] [address] Nov, [facility] [address] [id number] [address] [place] [address], [place] [address] Oct, [facility] [address] [id number] [address] [place] [address], [place] [address] Oct, [facility] [address] [id number] [address] [place] [address], [place] [address] Oct, [facility] [address] [id number] [address] [place] [address], [place] [address] Oct, [facility] [address] [id number] [address] [place] [address], [place] [address] Oct, [facility] [address] [id number] [address] [place] [address], [place] [address] Oct, [facility] [address] [id number] [address] [place] [address], [place] [address] Oct, [facility] [address] [id number] [address] [place] [address], [place] [address] Oct, [facility] [address] [id number] [address] [place] [address], [place] [address] 05 Oct, 2012 [facility] [address] [id number] [address] [place] [address], [place] [address] 05 Oct, 2012 [facility] [address] [id number] [address] [place] [address], [place] [address] Oct, [facility] [address] [id number] [address] [place] [address], [place] [address] Oct, [facility] [address] [id number] [address] [place] [address], [place] [address] Sep, [facility] [address] [id number] [address] [place] [address], [place] [address] Sep, [facility] [address] [id number] [address] [place] [address], [place] [address] Sep, [facility] [address] [id number] [address] [place] [address], [place] [address] Sep, [facility] [address] [id number] [address] [place] [address], [place] [address] Sep, [facility] [address] [id number] [address] [place] [address], [place] [address] Sep, [facility] [address] [id number] [address] [place] [address], [place] [address] Sep, [facility] [address] [id number] [address] [place] [address], [place] [address] Sep, [facility] [address] [id number] [address] [place] [address], [place] [address] Sep, [facility] [address] [id number] [address] [place] [address], [place] [address] Sep, [facility] [address] [id number] [address] [place] [address], [place] [address] Sep, [facility] [address] [id number] [address] [place] [address], [place] [address] Aug, [facility] [address] [id number] [address] [place] [address], [place] [address] Aug, [facility] [address] [id number] [address] [place] [address], [place] [address] Aug, [facility] [address] [id number] [address] [place] [address], [place] [address] Aug, [facility] [address] [id number] [address] [place] [address], [place] [address] Aug, [facility] [address] [id number] [address] [place] [address], [place] [address] Aug, [facility] [address] [id number] [address] [place] [address], [place] [address] Aug, [facility] [address] [id number] [address] [place] [address], [place] [address] Aug, [facility] [address] [id number] [address] [place] [address], [place] [address] Aug, [facility] [address] [id number] [address] [place] [address], [place] [address] Aug, [facility] [address] [id number] [address] [place] [address], [place] [address] Jul, [facility] [address] [id number] [address] [place] [address], [place] [address] 20 Jul, 2012 [facility] [address] [id number] [address] [place] [address], [place] [address] 10 Jul, 2012 [facility] [address] [id number] [address] [place] [address], [place] [address] 06 Jul, 2012 [facility] [address] [id number] [address] [place] [address], [place] [address] 30 Jun, 2012 [facility] [address] [id number] [address] [place] [address], [place] [address] Jun, [facility] [address] [id number] [address] [place] [address], [place] [address] 16 Jun, 2012 [facility] [address] [id number] [address] [place] [address], [place] [address] Jun, [facility] [address] [id number] [address] [place] [address] [place] [address] Jun, [facility] [address] [id number] [address] [place] [address], [place] [address] Jun, [facility] [address] [id number] [address] [place] [address], [place] [address] Jun, [facility] [address] [id number] [address] [place] [address], [place] [address] May, [facility] [address] [id number] [address] [place] [address], [place] [address] May, [facility] [address] [id number] [address] [place] [address], [place] [address] May, [facility] [address] [id number] [address] [place] [address], [place] [address] May, [facility] [address] [id number] [address] [place] [address], [place] [address] May, [facility] [address] [id number] [address] [place] [address], [place] [address] Apr, [facility] [address] [id number] [address] [place] [address], [place] [address] Apr, [facility] [address] [id number] [address] [place] [address], [place] [address] Apr, [facility] [address] [id number] [address] [place] [address], [place] [address] Apr, [facility] [address] [id number] [address] [place] [address], [place] [address] Apr, [facility] [address] [id number] [address] [place] [address], [place] [address] March, [facility] [address] [id number] [address] [place] [address], [place] [address] March, [facility] [address] [id number] [address] [place] [address], [place] [address] March, [facility] [address] [id number] [address] [place] [address], [place] [address] March, [facility] [address] [id number] [address] [place] [address], [place] [address] March, [facility] [address] [id number] [address] [place] [address], [place] [address] March, [facility] [address] [id number] [address] [place] [address], [place] [address] March, [facility] [address] [id number] [address] [place] [address], [place] [address] March, [facility] [address] [id number] [address] [place] [address], [place] [address] March, [facility] [address] [id number] [address] [place] [address], [place] [address] March, [facility] [address] [id number] [address] [place] [address], [place] [address] 30 Feb, 2012 [facility] [address] [id number] [address] [place] [address], [place] [address] Feb, [facility] [address] [id number] [address] [place] [address], [place] [address] Feb, [facility] [address] [id number] [address] [place] [address], [place] [address] Feb, [facility] [address] [id number] [address] [place] [address], [place] [address] 17 Feb, 2012 [facility] [address] [id number] [address] [place] [address], [place] [address] Feb, [facility] [address] [id number] [address] [place] [address], [place] [address] Feb, [facility] [address] [id number] [address] [place] [address], [place] [address] Feb, [facility] [address] [id number] [address] [place] [address], [place] [address] Feb, [facility] [address] [id number] [address] [place] [address], [place] [address] Jan, [facility] [address] [id number] [address] [place] [address], [place] [address] Jan, [facility] [address] [id number] [address] [place] [address], [place] [address] Jan, [facility] [address] [id number] [address] [place] [address], [place] [address] Jan, [facility] [address] [id number] [address] [place] [address], [place] [address] Dec, [facility] [address] [id number] [address] [place] [address], [place] [address] Dec, [facility] [address] [id number] [address] [place] [address], [place] [address] Nov, [facility] [address] [id number] [address] [place] [address], [place] [address] Nov, [facility] [address] [id number] [address] [place] [address], [place] [address] Nov, [facility] [address] [id number] [address] [place] [address], [place] [address] Nov, [facility] [address] [id number] [address] [place] [address], [place] [address] Nov, [facility] [address] [id number] [address] [place] [place] [address], [place] [id number] Oct, [facility] [address] [id number] [address] [place] [address], [place] [id number] Oct, [facility] [address] [id number] [address] [place] [address], [place] [address] Oct, [facility] [address] [id number] [address] [place] [address], [place] [id number] Oct, [facility] [address] [id number] [address] [place] [id number] Oct, [facility] [address] [facility] [id number] [address] [place] [phone] Oct, [facility] [address] [facility] [id number] [address] [place] [id number] Oct, [facility] [address] [facility] [id number] [address] [place] [id number] Oct, [facility] [address] [facility] [id number] [address] [place] [id number] Sep, IMMUNIZATIONS No Known Immunizations SOCIAL HISTORY [...] information Hospitalization History [facility]- Urosepsis, ab d pain and fever, discharged 11/27/2017 11/26/2017 Hospitalization History [facility]- Went Unrepsonsive, Hit head 2017 Hospitalization History [facility]- Back Pain 8
--- OUTSIDE RECORDS SUMMARY | 2020-06-18 14:50 | XMS REPORT ---
Author Sanjuanita Garza Organization [facility] Address [address] [place] [address] Care Team Providers Care Wiring Technician Name Role Phone MAX DHILLON Unavailable PROBLEMS Type Condition ICD9-CM Code VFT56-JJ Code Onset Dates Condition S tatus SNOMED Code Problem Hypertension I10 Active 2627336 3 Problem Hyperlipidemia E78.5 Active 78795 004 Problem Coronary artery disease I25.10 Active 36512908 Problem Low back pain M54.5 Active 143645 009 Problem Other chronic pain G89.29 Active 8 7480530 Problem Ventral hernia without obstruction or gangrene K43 .9 Active 053950292 Problem Type 2 diabetes mellitus wit hout complication, without long-term current use of insulin E11.9 Active 069115520 Problem Anxiety F41.9 Active 13137940 Problem Peripheral vascular disease I73.9 Ac tive 320195005 Problem Insomnia G47.00 Active 843818492 Problem Microcytic anemia D50.9 Active 23 9332558 Problem Pharyngeal dysphagia R13.13 Active 89204513328059 Problem Other iron deficiency anemia D50.8 A ctive 51318367 Problem Reactive depression F32.9 Active 51979135 Problem Paroxysmal atrial fibrillation I48.0 Active 742564537 Problem 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 Active 22493323 Problem Encounter for suprapubic catheter care Z43.5 Active 562561570 Problem Neurogenic bladder N31.9 Active 3 82058034 ALLERGIES No Information ENCOUNTERS Encounter Location Date Diagnosis [facility] [address] [id number] [address] [place] [phone] Jan, Anxiety F41.9 and Strain of right shoulder, subsequent encounter S46.911D [facility] [address] [id number] [address] [place] [id number] Jan, Via [facility] [address] [place] [id number] Jan, Neurogenic bladder N31.9 [place] [address] [id number] [address] [place] [phone] Dec, [place] [address] [id number] [address] [place] [id number] Dec, [place] [address] [id number] [address] [place] [id number] Dec, Anxiety F41.9 and Strain of right shoulder, subsequent encounter S46.911D [place] [address] [id number] [address] [place] [id number] 10 Dec, 2019 Other iron deficiency anemia D50.8 [place] [address] [id number] [address] [place] [id number] 04 Dec, 2019 Via [facility] [address] [place] [id number] Dec, Encounter for suprapubic catheter care Z 43.5 and Microcytic anemia D50.9 [place] [address] [id number] [address] [place] [id number] Dec, [place] [address] [id number] [address] [place] [id number] Nov, Anxiety F41.9 and Strain of right shoulder, subsequent encounter S46.911D [place] [address] [id number] [address] [place] [address] Nov, Hypertension I10 [facility] [address] [place] [id number] Nov, Pneumonia of both lungs due to infectiou s organism, unspecified part of lung J18.9 and Suprapubic catheter Z93.59 [place] [address] [id number] [address] [place] [id number] Nov, Hypertension I10 and Reactiv e depression F32.9 [place] [address] [id number] [address] [place] [id number] Oct, Strain of right shoulder, scherer bsequent encounter S46.911D and Anxiety F41.9 [facility] [address] [id number] [address] [place] [id number] Oct, Via [facility] [address] [place] [id number] Oct, Suprapubic catheter Z93.59 and Candidias is, intertriginous B37.2 [facility] [address] [id number] [address] [place] [id number] Oct, Suprapubic catheter Z93.59 [facility] [address] [id number] [address] [place] [id number] Oct, Anxiety F41.9 and Strain of right shoulder, subsequent encounter S46.911D [facility] [address] [id number] [address] [place] [id number] Sep, [facility] [address] [id number] [address] [place] [id number] Sep, [facility] [address] [id number] [address] [place] [phone] Sep, Via [employer] [address] [place] [id number] Sep, Suprapubic catheter Z93.59 [facility] [address] [id number] [address] [place] [id number] Sep, Anxiety F41.9 and Strain of right shoulder, subsequent encounter S46.911D [facility] [address] [id number] [address] [place] [id number] Aug, [facility] [address] [id number] [address] [place] [id number] Aug, [facility] [address] [id number] [address] [place] [id number] Aug, Anxiety F41.9 and Strain of right shoulder, subsequent encounter S46.911D Via [employer] [address] [place] [id number] Aug, Suprapubic catheter Z93.59 [facility] [address] [id number] [address] [place] [id number] Jul, Strain of right shoulder, scherer bsequent encounter S46.911D and Anxiety F41.9 [facility] [address] [id number] [address] [place] [id number] Jul, Anxiety F41.9 [facility] [address] [id number] [address] [place] [id number] Jun, [facility] [address] [id number] [address] [place] [phone] Jun, [facility] [address] [id number] [address] [place] [id number] Jun, [facility] [address] [id number] [address] [place] [id number] Jun, Strain of right shoulder, scherer bsequent encounter S46.911D [facility] [address] [id number] [address] [place] [id number] Jun, Strain of right shoulder, scherer bsequent encounter S46.911D [facility] [address] [id number] [address] [place] [id number] Jun, Anxiety F41.9 Via [facility] [address] [place] [id number] Jun, Neurogenic bladder N31.9 and Anxiety F41 .9 Via [facility] [address] [place] [id number] May, Anxiety F41.9 [facility] [address] [id number] [address] [place] [address] May, Dysuria R30.0 [facility] [address] [id number] [address] [place] [address] May, Strain of right shoulder, scherer bsequent encounter S46.911D and Anxiety F41.9 [place] [address] [id number] [address] [place] [id number] 27 Apr, 2019 Via [facility] [address] [place] [id number] 18 Apr, 2019 Strain of right shoulder, subsequent enc ounter S46.911D [place] [address] [id number] [address] [place] [id number] 14 Apr, 2019 Strain of right shoulder, scherer bsequent encounter S46.911D and Anxiety F41.9 Via [facility] [address] [place] [id number] 13 Apr, 2019 Type 2 diabetes mellitus without complic ation, without long-term current use of insulin E11.9 and Neurogenic bladder N31.9 [facility] [address] [place] [id number] 11 Apr, 2019 Strain of right shoulder, subsequent enc ounter S46.911D ; History of GI bleed Z87.19 ; Neurogenic bladder N31.9 and Reactive depression F32.9 [place] [address] [id number] [address] [place] [address] 10 Apr, 2019 Acute pain of left shoulder M25.512 [place] [address] [id number] [address] [place] [id number] 07 Apr, 2019 [place] [address] [id number] [address] [place] [phone] Apr, Anxiety F41.9 and 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 Via [facility] [address] [place] [id number] March, Gastrointestinal hemorrhage associated w ith acute gastritis K29.01 [place] [address] [id number] [address] [place] [phone] March, Via [facility] [address] [place] [id number] March, Bronchitis J40 [place] [address] [id number] [address] [place] [id number] March, Cough R05 [facility] [address] [id number] [address] [place] [id number] March, Other chronic pain G89.29 [facility] [address] [id number] [address] [place] [id number] March, Anxiety F41.9 [facility] [address] [id number] [address] [place] [id number] March, [facility] [address] [id number] [address] [place] [id number] Feb, Other chronic pain G89.29 [facility] [address] [id number] [address] [place] [id number] Feb, Anxiety F41.9 [facility] [address] [id number] [address] [place] [id number] Feb, Other chronic pain G89.29 Via [employer] [facility] [address] [place] [id number] Feb, Neurogenic bladder N31.9 and Suprapubic catheter Z93.59 [facility] [address] [id number] [address] [place] [id number] Jan, Anxiety F41.9 [facility] [address] [id number] [address] [place] [id number] Dec, Anxiety F41.9 [facility] [address] [id number] [address] [place] [phone] Dec, Other chronic pain G89.29 an d Anxiety F41.9 [facility] [address] [id number] [address] [place] [id number] Dec, Via [employer] [facility] [address] [place] [id number] Dec, Neurogenic bladder N31.9 and Suprapubic catheter Z93.59 [facility] [address] [id number] [address] [place] [id number] Nov, Other chronic pain G89.29 an d Anxiety F41.9 [facility] [address] [id number] [address] [place] [id number] Nov, Via [employer] [address] [place] [id number] Nov, Suprapubic catheter Z93.59 [facility] [address] [id number] [address] [place] [id number] Oct, Other chronic pain G89.29 an d Anxiety F41.9 [facility] [address] [id number] [address] [place] [id number] Oct, [facility] [address] [id number] [address] [place] [id number] Oct, Suprapubic catheter Z93.59 [facility] [address] [id number] [address] [place] [id number] Oct, Via [employer] [address] [place] [id number] Oct, [facility] [address] [id number] [address] [place] [id number] Oct, Anxiety F41.9 [facility] [address] [id number] [address] [place] [id number] Oct, Anxiety F41.9 Via [facility] [address] [place] [id number] Oct, Other chronic pain G89.29 [facility] [address] [id number] [address] [place] [id number] Sep, Other chronic pain G89.29 Via [employer] [address] [place] [id number] Sep, Suprapubic catheter Z93.59 and Cervicalg ia M54.2 [facility] [address] [id number] [address] [place] [id number] Sep, [facility] [address] [id number] [address] [place] [id number] Sep, [facility] [address] [id number] [address] [place] [id number] Sep, Via [employer] [address] [place] [id number] Aug, Cystitis N30.90 [facility] [address] [id number] [address] [place] [id number] Aug, [facility] [address] [id number] [address] [place] [phone] Aug, Other chronic pain G89.29 [facility] [address] [id number] [address] [place] [phone] Aug, Via [employer] [address] [place] [id number] Aug, Encounter for suprapubic catheter care Z 43.5 [facility] [address] [id number] [address] [place] [id number] Jul, Via [employer] [facility] [address] [place] [id number] Jul, [facility] [address] [id number] [address] [place] [phone] Jul, Other chronic pain G89.29 [facility] [address] [id number] [address] [place] [id number] Jul, [facility] [address] [id number] [address] [place] [id number] Jul, Via [employer] [facility] [address] [place] [id number] Jun, 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 [facility] [address] [id number] [address] [place] [id number] Jun, Other chronic pain G89.29 [facility] [address] [id number] [address] [place] [phone] Jun, Via [employer] [address] [place] [id number] May, Anxiety F41.9 ; Type 2 diabetes mellitus without complication, without long-term current use of insulin E11.9 ; Hypertension I10 ; Low back pain M54.5 ; Paroxysmal atrial fibrillation I48.0 and 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 [facility] [address] [id number] [address] [place] [id number] May, Other chronic pain G89.29 Via [facility] [address] [place] [id number] May, Low back pain M54.5 [facility] [address] [id number] [address] [place] [address] May, [facility] [address] [id number] [address] [place] [id number] Apr, Other chronic pain G89.29 [facility] [address] [id number] [address] [place] [phone] Apr, [facility] [address] [id number] [address] [place] [id number] Apr, Via [employer] [address] [place] [id number] Apr, Closed compression fracture of L3 lumbar vertebra with routine healing, subsequent encounter S32.030D Via [facility] [address] [place] [id number] Apr, Low back pain M54.5 Via [employer] [address] [place] [id number] Apr, Coccydynia M53.3 [facility] [address] [id number] [address] [place] [id number] March, [facility] [address] [id number] [address] [place] [id number] March, Other chronic pain G89.29 [facility] [address] [id number] [address] [place] [phone] March, [facility] [address] [id number] [address] [place] [id number] March, [facility] [address] [id number] [address] [place] [id number] Feb, [facility] [address] [id number] [address] [place] [id number] Feb, Other chronic pain G89.29 Via [facility] [address] [place] [id number] Feb, Other chronic pain G89.29 and Anxiety F4 1.9 [facility] [address] [id number] [address] [place] [id number] Feb, [facility] [address] [id number] [address] [place] [id number] Jan, [facility] [address] [id number] [address] [place] [id number] Jan, [facility] [address] [id number] [address] [place] [address] Jan, [facility] [address] [id number] [address] [place] [id number] Jan, [facility] [address] [id number] [address] [place] [phone] Dec, Via [facility] [address] [place] [id number] Dec, Peripheral vascular disease I73.9 ; 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 ; Other chronic pain G89.29 ; Anxiety F41.9 ; Reactive depression F32.9 ; Insomnia G47.00 and Type 2 diabetes mellitus without complication, without long-term current use of insulin E11.9 [facility] [place] [address] [id number] [place] [address] Nov, [facility] [address] [id number] [place] [id number] Nov, Anxiety F41.9 [facility] [address] [id number] [address] [place] [id number] Nov, [facility] [address] [id number] [place] [id number] Nov, Anxiety F41.9 Via [facility] [employer] [address] [place] [id number] Nov, Status post surgery Z98.890 ; Confused R 41.0 ; Anxiety F41.9 and Other chronic pain G89.29 [facility] [address] [id number] [place] [id number] Nov, Other chronic pain G89.29 [facility] [address] [id number] [address] [place] [phone] Oct, [facility] [address] [id number] [place] [id number] Oct, Other chronic pain G89.29 [facility] [address] [id number] [address] [place] [phone] Oct, Anxiety F41.9 [facility] [address] [id number] [place] [id number] Sep, Other chronic pain G89.29 [facility] [address] [id number] [place] [id number] Sep, Via [employer] [address] [place] [id number] Aug, Dysuria R30.0 and Anxiety F41.9 [facility] [address] [id number] [address] [place] [id number] Aug, [facility] [address] [id number] [place] [id number] Aug, Other chronic pain G89.29 [facility] [address] [id number] [address] [place] [address] Jul, Other chronic pain G89.29 [facility] [address] [id number] [place] [id number] Jun, [facility] [address] [id number] [place] [id number] Jun, Other chronic pain G89.29 [facility] [address] [id number] [address] [place] [id number] Jun, [facility] [address] [facility] [id number] [address] [place] [id number] May, Other chronic pain G89.29 [facility] [address] [id number] [address] [place] [id number] Apr, Other chronic pain G89.29 Via [facility] [address] [place] [id number] Apr, Reactive depression F32.9 and Pharyngeal dysphagia R13.13 [facility] [address] [facility] [id number] [address] [place] [id number] Apr, Urinary tract infection with out hematuria, site unspecified N39.0 [facility] [address] [facility] [id number] [address] [place] [id number] March, Other chronic pain G89.29 [facility] [address] [facility] [id number] [address] [place] [id number] Feb, Other chronic pain G89.29 [facility] [address] [facility] [id number] [address] [place] [id number] Feb, [facility] [address] [id number] [place] [id number] Feb, Via [employer] [address] [place] [id number] Feb, Dysuria R30.0 and Ventral hernia without obstruction or gangrene K43.9 [facility] [address] [id number] [address] [place] [id number] Jan, Other chronic pain G89.29 [facility] [address] [id number] [id number] Dec, Other chronic pain G89.29 [facility] [address] [id number] [address] [place] [id number] Nov, Other chronic pain G89.29 Via [facility] [address] [place] [id number] Nov, Lymphadenitis I88.9 [facility] [address] [id number] [address] [place] [id number] Nov, Other chronic pain G89.29 [facility] [address] [id number] [address] [place] [id number] Nov, [facility] [id number] [place] [id number] Nov, Other chronic pain G89.29 Via [facility] [address] [place] [id number] Oct, Low back pain M54.5 ; Hypertension I10 a nd Type 2 diabetes mellitus without complication, without long-term current use of insulin E11.9 [facility] [address] [id number] [address] [place] [id number] Oct, [facility] [address] [id number] [address] [place] [id number] Oct, [facility] [address] [id number] [address] [place] [id number] Oct, [facility] [address] [id number] [address] [place] [id number] Oct, [facility] [address] [id number] [address] [place] [id number] Sep, [facility] [address] [id number] [address] [place] [id number] Sep, [facility] [address] [id number] [address] [place] [id number] Aug, Other chronic pain G89.29 [facility] [address] [id number] [address] [place] [id number] Jul, [facility] [address] [id number] [address] [place] [id number] Jul, [facility] [address] [id number] [address] [place] [id number] Jul, [facility] [address] [id number] [address] [place] [id number] Jun, [facility] [address] [id number] [address] [place] [id number] Jun, [facility] [address] [place] [id number] Jun, Low back pain M54.5 ; Other chronic pain G89.29 and Coronary artery disease I25.10 [facility] [address] [id number] [address] [place] [id number] Jun, [facility] [address] [id number] [address] [place] [id number] May, [facility] [address] [id number] [address] [place] [id number] May, [facility] [address] [id number] [address] [place] [id number] May, Other chronic pain G89.29 [facility] [address] [id number] [address] [place] [id number] May, [facility] [address] [id number] [address] [place] [address] Apr, [facility] [address] [id number] [address] [place] [address] Apr, Acute cystitis without hemat uria N30.00 [facility] [address] [id number] [address] [place] [address] 16 Apr, 2016 Acute cystitis without hemat uria N30.00 ; Coronary artery disease I25.10 ; Low back pain M54.5 and Other chronic pain G89.29 [facility] [address] [id number] [address] [place] [address] Apr, Other chronic pain G89.29 [facility] [address] [id number] [address] [place] [address] March, Other chronic pain G89.29 [facility] [address] [id number] [address] [place] [address] 18 Feb, 2016 [facility] [address] [id number] [address] [place] [address] Feb, Arthritis M19.90 [facility] [address] [id number] [address] [place] [address] Feb, [facility] [address] [facility] [id number] [address] [place] [address] Jan, [facility] [address] [id number] [address] [place] [address] Jan, [facility] [address] [id number] [address] [place] [address] Jan, Other chronic pain G89.29 [facility] [address] [facility] [id number] [address] [place] [address] Jan, Hypertension I10 ; Coronary artery disease I25.10 and Insomnia G47.00 [facility] [address] [id number] [address] [place] [address] Jan, [facility] [address] [id number] [address] [place] [address] Dec, Right hip pain M25.551 [facility] [address] [id number] [address] [place] [address] Dec, [facility] [address] [facility] [id number] [address] [place] [address] Dec, [facility] [address] [facility] [id number] [address] [place] [address] Dec, [facility] [address] [id number] [address] [place] [address] Dec, Other chronic pain G89.29 [facility] [address] [id number] [address] [place] [address] Dec, [facility] [address] [id number] [address] [place] [address] Nov, [facility] [address] [id number] [address] [place] [address] Nov, Other chronic pain G89.29 [facility] [address] [id number] [address] [place] [address] Nov, Right hip pain M25.551 and C oronary artery disease I25.10 [facility] [address] [id number] [address] [place] [address] Nov, Other chronic pain G89.29 [facility] [address] [id number] [address] [place] [address] Oct, [facility] [address] [id number] [address] [place] [address] Oct, [facility] [address] [id number] [address] [place] [id number] Sep, [facility] [address] [id number] [address] [place] [address] Sep, [facility] [address] [id number] [address] [place] [id number] Aug, [facility] [address] [id number] [address] [place] [address] Aug, Hypertension I10 ; Coronary artery disease I25.10 and Arthritis M19.90 [facility] [address] [id number] [address] [place] [id number] Jun, [facility] [address] [id number] [address] [place] [address] Jun, Essential hypertension, jayson gn 401.1 ; Other chronic pain 338.29 and Chronic airway obstruction, not elsewhere classified 496 [facility] [address] [id number] [address] [place] [address] Jun, [facility] [address] [id number] [address] [place] [address] Jun, [facility] [address] [id number] [address] [place] [id number] Jun, [facility] [address] [id number] [address] [place] [id number] May, [facility] [address] [id number] [address] [place] [address] May, [facility] [address] [id number] [address] [place] [id number] Apr, [facility] [address] [id number] [address] [place] [id number] Apr, [facility] [address] [id number] [address] [place] [address] Apr, [facility] [address] [id number] [address] [place] [id number] March, [facility] [address] [id number] [address] [place] [id number] March, [facility] [address] [id number] [address] [place] [address] March, [facility] [address] [id number] [address] [place] [address] March, [facility] [address] [id number] [address] [place] [address] March, Sialadenitis 527.2 [facility] [address] [id number] [address] [place] [id number] Feb, [facility] [address] [id number] [address] [place] [address], [place] [address] Feb, [facility] [address] [id number] [address] [place] [address], [place] [address] Feb, [facility] [address] [id number] [address] [place] [address], [place] [address] 14 Feb, 2015 [facility] [address] [id number] [address] [place] [address], [place] [address] Feb, [facility] [address] [id number] [address] [place] [address], [place] [address] Jan, [facility] [address] [id number] [address] [place] [address], [place] [address] Jan, [facility] [address] [id number] [address] [place] [address], [place] [address] Jan, [facility] [address] [id number] [address] [place] [address], [place] [address] Jan, [facility] [address] [id number] [address] [place] [address], [place] [address] Jan, [facility] [address] [id number] [address] [place] [address], [place] [address] Jan, [facility] [address] [id number] [address] [place] [address], [place] [address] Dec, [facility] [address] [id number] [address] [place] [address], [place] [address] Dec, 2014 [facility] [address] [id number] [address] [place] [address], [place] [address] Dec, 2014 [facility] [address] [id number] [address] [place] [address], [place] [address] Dec, 2014 [facility] [address] [id number] [address] [place] [address], [place] [address] Dec, 2014 [facility] [address] [id number] [address] [place] [address], [place] [address] Dec, [facility] [address] [id number] [address] [place] [address], [place] [address] Nov, [facility] [address] [id number] [address] [place] [address], [place] [address] Nov, [facility] [address] [id number] [address] [place] [address], [place] [address] Nov, [facility] [address] [id number] [address] [place] [address], [place] [address] Nov, [facility] [address] [id number] [address] [place] [address], [place] [address] Nov, [facility] [address] [id number] [address] [place] [address], [place] [address] Nov, [facility] [address] [id number] [address] [place] [address], [place] [address] Nov, [facility] [address] [id number] [address] [place] [address], [place] [address] Nov, [facility] [address] [id number] [address] [place] [address], [place] [address] Nov, [facility] [address] [id number] [address] [place] [address], [place] [address] Nov, [facility] [address] [id number] [address] [place] [address], [place] [address] Nov, [facility] [address] [id number] [address] [place] [address], [place] [address] Nov, [facility] [address] [id number] [address] [place] [address], [place] [address] Nov, [facility] [address] [id number] [address] [place] [address], [place] [address] Nov, [facility] [address] [id number] [address] [place] [address], [place] [address] Oct, [facility] [address] [id number] [address] [place] [address], [place] [address] Oct, [facility] [address] [id number] [address] [place] [address], [place] [address] Oct, [facility] [address] [id number] [address] [place] [address], [place] [address] Oct, [facility] [address] [id number] [address] [place] [address], [place] [address] Oct, [facility] [address] [id number] [address] [place] [address], [place] [address] Oct, [facility] [address] [id number] [address] [place] [address], [place] [address] Oct, [facility] [address] [id number] [address] [place] [address], [place] [address] Oct, [facility] [address] [id number] [address] [place] [address], [place] [address] Oct, [facility] [address] [id number] [address] [place] [address], [place] [address] Sep, [facility] [address] [id number] [address] [place] [address], [place] [address] Sep, [facility] [address] [id number] [address] [place] [address], [place] [address] Sep, [facility] [address] [id number] [address] [place] [address], [place] [address] Sep, [facility] [address] [id number] [address] [place] [address], [place] [address] Sep, [facility] [address] [id number] [address] [place] [address], [place] [address] Sep, [facility] [address] [id number] [address] [place] [address], [place] [address] Sep, [facility] [address] [id number] [address] [place] [address], [place] [address] Sep, [facility] [address] [id number] [address] [place] [address], [place] [address] Sep, [facility] [address] [id number] [address] [place] [address], [place] [address] Sep, [facility] [address] [id number] [address] [place] [address], [place] [address] Sep, [facility] [address] [id number] [address] [place] [address], [place] [address] Sep, [facility] [address] [id number] [address] [place] [address], [place] [address] Aug, [facility] [address] [id number] [address] [place] [address], [place] [address] Aug, [facility] [address] [id number] [address] [place] [address], [place] [address] Aug, [facility] [address] [id number] [address] [place] [address], [place] [address] Aug, [facility] [address] [id number] [address] [place] [address], [place] [address] Aug, [facility] [address] [id number] [address] [place] [address], [place] [address] Aug, [facility] [address] [id number] [address] [place] [address], [place] [address] Aug, [facility] [address] [id number] [address] [place] [address] Aug, [facility] [address] [id number] [address] [place] [address], [place] [address] 30 Jul, 2014 [facility] [address] [id number] [address] [place] [address], [place] [address] 30 Jul, 2014 [facility] [address] [id number] [address] [place] [address], [place] [address] 30 Jul, 2014 [facility] [address] [id number] [facility] [place] [address] 30 Jul, 2013 [facility] [address] [id number] [facility] [place] [address] 25 Jul, 2013 [facility] [address] [id number] [facility] [place] [address] 25 Jul, 2013 [facility] [address] [id number] [address] [place] [address], [place] [address] 15 Jul, 2014 [facility] [address] [id number] [address] [place] [address], [place] [address] 15 Jul, 2013 [facility] [address] [id number] [address] [place] [address], [place] [address] Jul, [facility] [address] [id number] [address] [place] [address], [place] [address] Jul, [facility] [address] [id number] [address] [place] [address], [place] [address] Jun, [facility] [address] [id number] [address] [place] [address], [place] [address] Jun, [facility] [address] [id number] [address] [place] [address], [place] [address] Jun, [facility] [address] [id number] [address] [place] [address], [place] [address] Jun, [facility] [address] [id number] [address] [place] [address], [place] [address] Jun, [facility] [address] [id number] [address] [place] [address], [place] [address] Jun, [facility] [address] [id number] [address] [place] [address], [place] [address] Jun, [facility] [address] [id number] [address] [place] [address], [place] [address] Jun, [facility] [address] [id number] [address] [place] [address], [place] [address] Jun, [facility] [address] [id number] [address] [place] [address], [place] [address] Jun, [facility] [address] [id number] [address] [place] [address], [place] [address] Jun, [facility] [address] [id number] [address] [place] [address], [place] [address] Jun, [facility] [address] [id number] [address] [place] [address], [place] [address] Jun, [facility] [address] [id number] [address] [place] [address], [place] [address] Jun, [facility] [address] [id number] [address] [place] [address], [place] [address] Jun, [facility] [address] [id number] [address] [place] [address], [place] [address] Jun, [facility] [address] [id number] [address] [place] [address], [place] [address] Jun, [facility] [address] [id number] [address] [place] [address], [place] [address] Jun, [facility] [address] [id number] [address] [place] [address], [place] [address] Jun, [facility] [address] [id number] [address] [place] [address], [place] [address] Jun, [facility] [address] [id number] [address] [place] [address], [place] [address] Jun, [facility] [address] [id number] [address] [place] [address], [place] [address] Jun, [facility] [address] [id number] [address] [place] [address], [place] [address] May, [facility] [address] [id number] [address] [place] [address], [place] [address] May, [facility] [address] [id number] [address] [place] [address], [place] [address] May, [facility] [address] [id number] [facility] [place] [address] May, [facility] [address] [id number] [facility] [place] [address] May, [facility] [address] [id number] [facility] [place] [address] May, 2013 [facility] [address] [id number] [address] [place] [address], [place] [address] May, 2013 [facility] [address] [id number] [address] [place] [address], [place] [address] May, [facility] [address] [id number] [address] [place] [address], [place] [address] May, 2013 [facility] [address] [id number] [address] [place] [address], [place] [address] May, [facility] [address] [id number] [address] [place] [address], [place] [address] May, [facility] [address] [id number] [address] [place] [address], [place] [address] May, [facility] [address] [id number] [address] [place] [address], [place] [address] May, [facility] [address] [id number] [address] [place] [address], [place] [address] Apr, [facility] [address] [id number] [address] [place] [address], [place] [address] Apr, [facility] [address] [id number] [address] [place] [address], [place] [address] Apr, [facility] [address] [id number] [address] [place] [address], [place] [address] Apr, [facility] [address] [id number] [address] [place] [address], [place] [address] Apr, [facility] [address] [id number] [facility] [place] [address] Apr, [facility] [address] [id number] [facility] [place] [address] Apr, [facility] [address] [id number] [facility] [place] [address] Apr, [facility] [address] [id number] [facility] [place] [address] Apr, [facility] [address] [id number] [facility] [place] [address] March, [facility] [address] [id number] [address] [place] [address], [place] [address] March, [facility] [address] [id number] [address] [place] [address], [place] [address] March, [facility] [address] [id number] [address] [place] [address], [place] [address] March, [facility] [address] [id number] [address] [place] [address], [place] [address] March, [facility] [address] [id number] [address] [place] [address], [place] [address] March, [facility] [address] [id number] [address] [place] [address], [place] [address] March, [facility] [address] [id number] [address] [place] [address], [place] [address] March, [facility] [address] [id number] [address] [place] [address], [place] [address] March, [facility] [address] [id number] [address] [place] [address], [place] [address] March, [facility] [address] [id number] [address] [place] [address], [place] [address] March, [facility] [address] [id number] [address] [place] [address], [place] [address] March, [facility] [address] [id number] [address] [place] [address], [place] [address] March, [facility] [address] [id number] [address] [place] [address], [place] [address] March, [facility] [address] [id number] [address] [place] [address], [place] [address] March, [facility] [address] [id number] [address] [place] [address], [place] [address] March, [facility] [address] [id number] [address] [place] [address], [place] [address] March, [facility] [address] [id number] [address] [place] [address], [place] [address] March, [facility] [address] [id number] [address] [place] [address], [place] [address] March, [facility] [address] [id number] [address] [place] [address], [place] [address] March, [facility] [address] [id number] [address] [place] [address], [place] [address] Feb, [facility] [address] [id number] [address] [place] [address], [place] [address] Feb, [facility] [address] [id number] [address] [place] [address], [place] [address] Feb, [facility] [address] [id number] [address] [place] [address], [place] [address] Feb, [facility] [address] [id number] [address] [place] [address], [place] [address] Feb, [facility] [address] [id number] [address] [place] [address], [place] [address] Feb, [facility] [address] [id number] [address] [place] [address], [place] [address] Feb, [facility] [address] [id number] [facility] [place] [address] 11 Feb, 2014 [facility] [address] [id number] [address] [place] [address], [place] [address] Jan, [facility] [address] [id number] [facility] [place] [address] Jan, [facility] [address] [id number] [address] [place] [address], [place] [address] Jan, [facility] [address] [id number] [address] [place] [address], [place] [address] Jan, [facility] [address] [id number] [address] [place] [address], [place] [address] Jan, [facility] [address] [id number] [address] [place] [address], [place] [address] Jan, [facility] [address] [id number] [address] [place] [address], [place] [address] Jan, [facility] [address] [id number] [address] [place] [address], [place] [address] Jan, [facility] [address] [id number] [address] [place] [address], [place] [address] Jan, [facility] [address] [id number] [address] [place] [address], [place] [address] Jan, [facility] [address] [id number] [address] [place] [address], [place] [address] Dec, [facility] [address] [id number] [address] [place] [address], [place] [address] Dec, [facility] [address] [id number] [address] [place] [address], [place] [address] Dec, [facility] [address] [id number] [address] [place] [address], [place] [address] 2013 [facility] [address] [id number] [address] [place] [address], [place] [address] Dec, [facility] [address] [id number] [facility] [place] [address] Dec, [facility] [address] [id number] [facility] [place] [address] Dec, [facility] [address] [id number] [address] [place] [address], [place] [address] Dec, [facility] [address] [id number] [address] [place] [address], [place] [address] Nov, [facility] [address] [id number] [address] [place] [address], [place] [address] Nov, [facility] [address] [id number] [address] [place] [address], [place] [address] Nov, [facility] [address] [id number] [address] [place] [address], [place] [address] Nov, [facility] [address] [id number] [address] [place] [address], [place] [address] Nov, [facility] [address] [id number] [address] [place] [address], [place] [address] Nov, [facility] [address] [id number] [address] [place] [address], [place] [address] Nov, [facility] [address] [id number] [address] [place] [address], [place] [address] Nov, [facility] [address] [id number] [address] [place] [address], [place] [address] Nov, [facility] [address] [id number] [address] [place] [address], [place] [address] Nov, [facility] [address] [id number] [address] [place] [address], [place] [address] Nov, [facility] [address] [id number] [address] [place] [address], [place] [address] Nov, [facility] [address] [id number] [address] [place] [address], [place] [address] 15 Nov, 2013 [facility] [address] [id number] [address] [place] [address], [place] [address] 30 Oct, 2013 [facility] [address] [id number] [address] [place] [address], [place] [address] 30 Oct, 2013 [facility] [address] [id number] [address] [place] [address], [place] [address] Oct, [facility] [address] [id number] [address] [place] [address], [place] [address] Oct, [facility] [address] [id number] [address] [place] [address], [place] [address] Oct, [facility] [address] [id number] [address] [place] [address], [place] [address] Oct, [facility] [address] [id number] [address] [place] [address], [place] [address] 18 Oct, 2013 [facility] [address] [id number] [address] [place] [address], [place] [address] 18 Oct, 2013 [facility] [address] [id number] [address] [place] [address], [place] [address] 17 Oct, 2013 [facility] [address] [id number] [address] [place] [address], [place] [address] 17 Oct, 2013 [facility] [address] [id number] [address] [place] [address], [place] [address] 03 Oct, 2013 [facility] [address] [id number] [address] [place] [address], [place] [address] 03 Oct, 2013 [facility] [address] [id number] [address] [place] [address], [place] [address] 02 Oct, 2013 [facility] [address] [id number] [address] [place] [address], [place] [address] 02 Oct, 2013 [facility] [address] [id number] [address] [place] [address], [place] [address] 14 Sep, 2013 [facility] [address] [id number] [address] [place] [address], [place] [address] 14 Sep, 2013 [facility] [address] [id number] [address] [place] [address], [place] [address] Sep, [facility] [address] [id number] [address] [place] [address], [place] [address] 05 Sep, 2013 [facility] [address] [id number] [address] [place] [address], [place] [address] Sep, [facility] [address] [id number] [address] [place] [address], [place] [address] Sep, [facility] [address] [id number] [address] [place] [address], [place] [address] Sep, [facility] [address] [id number] [address] [place] [address], [place] [address] Sep, [facility] [address] [id number] [address] [place] [address], [place] [address] Sep, [facility] [address] [id number] [address] [place] [address], [place] [address] Sep, [facility] [address] [id number] [address] [place] [address], [place] [address] Aug, [facility] [address] [id number] [address] [place] [address], [place] [address] Aug, [facility] [address] [id number] [address] [place] [address] Aug, [facility] [address] [id number] [address] [place] [address], [place] [address] Aug, [facility] [address] [id number] [address] [place] [address], [place] [address] Aug, [facility] [address] [id number] [address] [place] [address], [place] [address] Aug, [facility] [address] [id number] [address] [place] [address] 23 Aug, 2013 [facility] [address] [id number] [address] [place] [address], [place] [address] 23 Aug, 2013 [facility] [address] [id number] [address] [place] [address], [place] [address] 22 Aug, 2013 [facility] [address] [id number] [address] [place] [address], [place] [address] 22 Aug, 2013 [facility] [address] [id number] [address] [place] [address] 18 Aug, 2013 [facility] [address] [id number] [address] [place] [address], [place] [address] 18 Aug, 2013 [facility] [address] [id number] [address] [place] [address] 18 Aug, 2013 [facility] [address] [id number] [address] [place] [address], [place] [address] 18 Aug, 2013 [facility] [address] [id number] [address] [place] [address], [place] [address] 17 Aug, 2013 [facility] [address] [id number] [address] [place] [address], [place] [address] 14 Aug, 2013 [facility] [address] [id number] [address] [place] [address] 14 Aug, 2013 [facility] [address] [id number] [address] [place] [address] Aug, [facility] [address] [id number] [address] [place] [address] 20 Jul, 2012 [facility] [address] [id number] [address] [place] [address], [place] [address] 19 Jul, 2012 [facility] [address] [id number] [address] [place] [address], [place] [address] 18 Jul, 2012 [facility] [address] [id number] [address] [place] [address], [place] [address] 11 Jul, 2012 [facility] [address] [id number] [facility] [place] [address] Jul, [facility] [address] [id number] [address] [place] [address], [place] [address] Jun, [facility] [address] [id number] [address] [place] [address], [place] [address] Jun, [facility] [address] [id number] [address] [place] [address], [place] [address] Jun, [facility] [address] [id number] [address] [place] [address], [place] [address] Jun, [facility] [address] [id number] [address] [place] [address], [place] [address] Jun, [facility] [address] [id number] [address] [place] [address], [place] [address] Jun, [facility] [address] [id number] [address] [place] [address], [place] [address] Jun, [facility] [address] [id number] [address] [place] [address], [place] [address] Jun, [facility] [address] [id number] [address] [place] [address], [place] [address] Jun, [facility] [address] [id number] [address] [place] [address], [place] [address] Jun, [facility] [address] [id number] [address] [place] [address], [place] [address] May, [facility] [address] [id number] [address] [place] [address], [place] [address] May, [facility] [address] [id number] [address] [place] [address], [place] [address] May, [facility] [address] [id number] [address] [place] [address], [place] [address] May, [facility] [address] [id number] [address] [place] [address], [place] [address] May, [facility] [address] [id number] [address] [place] [address], [place] [address] 16 May, 2013 [facility] [address] [id number] [address] [place] [address], [place] [address] May, [facility] [address] [id number] [address] [place] [address], [place] [address] May, [facility] [address] [id number] [address] [place] [address], [place] [address] May, [facility] [address] [id number] [address] [place] [address], [place] [address] Apr, [facility] [address] [id number] [address] [place] [address], [place] [address] Apr, [facility] [address] [id number] [address] [place] [address], [place] [address] Apr, [facility] [address] [id number] [address] [place] [address], [place] [address] Apr, [facility] [address] [id number] [address] [place] [address], [place] [address] Apr, [facility] [address] [id number] [address] [place] [address], [place] [address] Apr, [facility] [address] [id number] [address] [place] [address], [place] [address] Apr, [facility] [address] [id number] [address] [place] [address], [place] [address] March, [facility] [address] [id number] [address] [place] [address], [place] [address] Feb, [facility] [address] [id number] [address] [place] [address], [place] [address] Feb, [facility] [address] [id number] [address] [place] [address], [place] [address] Feb, [facility] [address] [id number] [address] [place] [address] 28 Jan, 2013 [facility] [address] [id number] [address] [place] [address], [place] [address] 21 Jan, 2013 [facility] [address] [id number] [address] [place] [address], [place] [address] 19 Jan, 2013 [facility] [address] [id number] [address] [place] [address], [place] [address] 14 Jan, 2013 [facility] [address] [id number] [address] [place] [address], [place] [address] 12 Jan, 2013 [facility] [address] [id number] [address] [place] [address], [place] [address] 08 Jan, 2013 [facility] [address] [id number] [address] [place] [address], [place] [address] 07 Jan, 2013 [facility] [address] [id number] [address] [place] [address], [place] [address] 04 Jan, 2013 [facility] [address] [id number] [address] [place] [address], [place] [address] 28 Dec, 2012 [facility] [address] [id number] [address] [place] [address], [place] [address] 25 Dec, 2012 [facility] [address] [id number] [address] [place] [address], [place] [address] 13 Dec, 2012 [facility] [address] [id number] [address] [place] [address], [place] [address] 11 Dec, 2012 [facility] [address] [id number] [address] [place] [address], [place] [address] 07 Dec, 2012 [facility] [address] [id number] [address] [place] [address], [place] [address] 06 Dec, 2012 [facility] [address] [id number] [address] [place] [address], [place] [address] 05 Dec, 2012 [facility] [address] [id number] [address] [place] [address], [place] [address] 31 Nov, 2012 [facility] [address] [id number] [address] [place] [address], [place] [address] 24 Nov, 2012 [facility] [address] [id number] [address] [place] [address], [place] [address] 18 Nov, 2012 [facility] [address] [id number] [address] [place] [address], [place] [address] 15 Nov, 2012 [facility] [address] [id number] [address] [place] [address], [place] [address] Nov, [facility] [address] [id number] [address] [place] [address], [place] [address] Nov, [facility] [address] [id number] [address] [place] [address], [place] [address] Nov, [facility] [address] [id number] [address] [place] [address], [place] [address] Oct, [facility] [address] [id number] [address] [place] [address], [place] [address] Oct, [facility] [address] [id number] [address] [place] [address], [place] [address] Oct, [facility] [address] [id number] [address] [place] [address], [place] [address] Oct, [facility] [address] [id number] [address] [place] [address], [place] [address] Oct, [facility] [address] [id number] [address] [place] [address], [place] [address] 17 Oct, 2012 [facility] [address] [id number] [address] [place] [address], [place] [address] Oct, [facility] [address] [id number] [address] [place] [address], [place] [address] 07 Oct, 2012 [facility] [address] [id number] [address] [place] [address], [place] [address] 05 Oct, 2012 [facility] [address] [id number] [address] [place] [address] Oct, [facility] [address] [id number] [address] [place] [address], [place] [address] Oct, [facility] [address] [id number] [address] [place] [address], [place] [address] Oct, [facility] [address] [id number] [address] [place] [address], [place] [address] Sep, [facility] [address] [id number] [address] [place] [address], [place] [address] Sep, [facility] [address] [id number] [address] [place] [address], [place] [address] Sep, [facility] [address] [id number] [address] [place] [address], [place] [address] Sep, [facility] [address] [id number] [address] [place] [address], [place] [address] Sep, [facility] [address] [id number] [address] [place] [address], [place] [address] Sep, [facility] [address] [id number] [address] [place] [address], [place] [address] Sep, [facility] [address] [id number] [address] [place] [address], [place] [address] Sep, [facility] [address] [id number] [address] [place] [address] Sep, [facility] [address] [id number] [address] [place] [address] Sep, [facility] [address] [id number] [address] [place] [address] Sep, [facility] [address] [id number] [address] [place] [address], [place] [address] Aug, [facility] [address] [id number] [address] [place] [address], [place] [address] Aug, [facility] [address] [id number] [address] [place] [address], [place] [address] Aug, [facility] [address] [id number] [address] [place] [address], [place] [address] Aug, [facility] [address] [id number] [address] [place] [address], [place] [address] Aug, [facility] [address] [id number] [address] [place] [address], [place] [address] Aug, [facility] [address] [id number] [address] [place] [address], [place] [address] Aug, [facility] [address] [id number] [address] [place] [address], [place] [address] Aug, [facility] [address] [id number] [address] [place] [address], [place] [address] Aug, [facility] [address] [id number] [address] [place] [address], [place] [address] Aug, [facility] [address] [id number] [address] [place] [address], [place] [address] 22 Jul, 2012 [facility] [address] [id number] [address] [place] [address], [place] [address] 20 Jul, 2012 [facility] [address] [id number] [address] [place] [address], [place] [address] 10 Jul, 2012 [facility] [address] [id number] [address] [place] [address], [place] [address] 06 Jul, 2012 [facility] [address] [id number] [address] [place] [address], [place] [address] 30 Jun, 2012 [facility] [address] [id number] [address] [place] [address], [place] [address] Jun, [facility] [address] [id number] [address] [place] [address], [place] [address] 16 Jun, 2012 [facility] [address] [id number] [address] [place] [address], [place] [address] Jun, [facility] [address] [id number] [facility] [place] [address] Jun, [facility] [address] [id number] [address] [place] [address], [place] [address] Jun, [facility] [address] [id number] [address] [place] [address], [place] [address] Jun, [facility] [address] [id number] [address] [place] [address], [place] [address] May, [facility] [address] [id number] [address] [place] [address], [place] [address] May, [facility] [address] [id number] [address] [place] [address], [place] [address] May, [facility] [address] [id number] [address] [place] [address], [place] [address] May, [facility] [address] [id number] [address] [place] [address], [place] [address] May, [facility] [address] [id number] [address] [place] [address], [place] [address] Apr, [facility] [address] [id number] [address] [place] [address], [place] [address] Apr, [facility] [address] [id number] [address] [place] [address], [place] [address] Apr, [facility] [address] [id number] [address] [place] [address], [place] [address] Apr, [facility] [address] [id number] [address] [place] [address], [place] [address] Apr, [facility] [address] [id number] [address] [place] [address], [place] [address] March, [facility] [address] [id number] [address] [place] [address], [place] [address] March, [facility] [address] [id number] [address] [place] [address], [place] [address] March, [facility] [address] [id number] [address] [place] [address], [place] [address] March, [facility] [address] [id number] [address] [place] [address], [place] [address] March, [facility] [address] [id number] [address] [place] [address], [place] [address] March, [facility] [address] [id number] [address] [place] [address], [place] [address] March, [facility] [address] [id number] [address] [place] [address], [place] [address] March, [facility] [address] [id number] [address] [place] [address], [place] [address] March, [facility] [address] [id number] [address] [place] [address], [place] [address] March, [facility] [address] [id number] [address] [place] [address], [place] [address] 30 Feb, 2012 [facility] [address] [id number] [address] [place] [address], [place] [address] Feb, [facility] [address] [id number] [address] [place] [address], [place] [address] Feb, [facility] [address] [id number] [address] [place] [address], [place] [address] Feb, [facility] [address] [id number] [address] [place] [address], [place] [address] Feb, [facility] [address] [id number] [address] [place] [address], [place] [address] Feb, [facility] [address] [id number] [address] [place] [address], [place] [address] Feb, [facility] [address] [id number] [address] [place] [address], [place] [address] Feb, [facility] [address] [id number] [address] [place] [address], [place] [address] Feb, [facility] [address] [id number] [address] [place] [address], [place] [address] 08 Jan, 2012 [facility] [address] [id number] [address] [place] [address], [place] [address] Jan, [facility] [address] [id number] [address] [place] [address], [place] [address] 05 Jan, 2012 [facility] [address] [id number] [address] [place] [address], [place] [address] Jan, [facility] [address] [id number] [address] [place] [address], [place] [address] Dec, [facility] [address] [id number] [address] [place] [address], [place] [address] Dec, [facility] [address] [id number] [address] [place] [address], [place] [address] Nov, [facility] [address] [id number] [address] [place] [address], [place] [address] Nov, [facility] [address] [id number] [address] [place] [address], [place] [address] Nov, [facility] [address] [id number] [address] [place] [address], [place] [address] Nov, [facility] [address] [id number] [address] [place] [address], [place] [address] Nov, [facility] [address] [id number] [address] [place] [address], [place] [address] Oct, [facility] [address] [id number] [address] [place] [address], [place] [address] Oct, [facility] [address] [id number] [address] [place] [address], [place] [address] Oct, [facility] [address] [id number] [address] [place] [address] Oct, [facility] [address] [facility] [id number] [address] [place] [address] Oct, [facility] [address] [facility] [id number] [address] [place] [phone] Oct, [facility] [address] [facility] [id number] [address] [place] [address] Oct, [facility] [address] [facility] [id number] [address] [place] [address] Oct, [facility] [address] [facility] [id number] [address] [place] [address] Sep, IMMUNIZATIONS No Known Immunizations SOCIAL HISTORY Never Assessed REASON FOR VISIT PLAN OF CARE VITAL SIGNS Height 62 in 2013-12-11 Weight 176.3 lbs 2013-12-11 Temperature 97.5 degrees Fahrenheit 2013-12-11 Heart Rate 90 bpm 2013-12-11 Respiratory Rate 26 2013-12-11 Blood pressure systolic 134 mmHg 2013-12-11 Blood pressure diastolic 68 mmHg 2013-12-11 MEDICATIONS Unknown Medications RESULTS No Results PROCEDURES Procedure Date Ordered Result Body Site THER/PROPH/DIAG INJ, SC/IM Dec 11, 2013 INJ METHYLPRDNISLN SODIM TO 125 MG Dec 11, 2013 GLYCATED HEMOGLOBIN TEST Dec 11, 2013 INSTRUCTIONS MEDICATIONS ADMINISTERED No Known Medications [...] History No Surgical history information Hospitalization History [facility]- Urosepsis, ab d pain and fever, discharged 11/27/2017 11/26/2017 Hospitalization History [facility]- Went Unrepsonsive, Hit head 2017 Hospitalization History [facility]- Back Pain 8
--- OUTSIDE RECORDS SUMMARY | 2020-06-18 14:51 | XMS REPORT ---
Author Sanjuanita Garza Organization [facility] Address [address] [place] [address] Care Team Providers Care Documentation Coordinator Name Role Phone MAX DHILLON Unavailable PROBLEMS Type Condition ICD9-CM Code BCH61-PL Code Onset Dates Condition S tatus SNOMED Code Problem Hypertension I10 Active 9823012 3 Problem Hyperlipidemia E78.5 Active 68843 004 Problem Coronary artery disease I25.10 Active 20252820 Problem Low back pain M54.5 Active 881968 009 Problem Other chronic pain G89.29 Active 8 1994520 Problem Ventral hernia without obstruction or gangrene K43 .9 Active 037403923 Problem Type 2 diabetes mellitus wit hout complication, without long-term current use of insulin E11.9 Active 364974581 Problem Anxiety F41.9 Active 25462131 Problem Peripheral vascular disease I73.9 Ac tive 046707397 Problem Insomnia G47.00 Active 016551032 Problem Microcytic anemia D50.9 Active 23 3158239 Problem Pharyngeal dysphagia R13.13 Active [id number] Problem Other iron deficiency anemia D50.8 A ctive 16375631 Problem Reactive depression F32.9 Active 36816376 Problem Paroxysmal atrial fibrillation I48.0 Active 429121835 Problem 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 Active 79438397 Problem Encounter for suprapubic catheter care Z43.5 Active 854920593 Problem Neurogenic bladder N31.9 Active 3 [id number] ALLERGIES No Information ENCOUNTERS Encounter Location Date Diagnosis [facility] [address] [id number] [place] [address] Jan, Anxiety F41.9 and Strain of right should er, subsequent encounter S46.911D [facility] [address] [facility] [place] [address] Jan, Via [facility] [address] [place] [address] Jan, Neurogenic bladder N31.9 [place] [address] [address] Dec, [place] [address] [address] Dec, [place] [address] [address] Dec, Anxiety F41.9 and Strain of right should er, subsequent encounter S46.911D [place] [address] [address] 10 Dec, 2019 Other iron deficiency anemia D50.8 [place] [address] [address] 04 Dec, 2019 Via [facility] [address] [place] [address] Dec, Encounter for suprapubic catheter care Z 43.5 and Microcytic anemia D50.9 [place] [address] [address] Dec, [place] [address] [address] Nov, Anxiety F41.9 and Strain of right should er, subsequent encounter S46.911D [place] [address] [address] Nov, Hypertension I10 Via [facility] [address] [place] [id number] Nov, Pneumonia of both lungs due to infectiou s organism, unspecified part of lung J18.9 and Suprapubic catheter Z93.59 [place] [address] [address] Nov, Hypertension I10 and Reactive depression F32.9 [place] [address] [address] Oct, Strain of right shoulder, subsequent enc ounter S46.911D and Anxiety F41.9 [facility] [address] [id number] [place] [address] 16 Oct, 2019 Via [employer] [address] [place] [address] Oct, Suprapubic catheter Z93.59 and Candidias is, intertriginous B37.2 [facility] [address] [id number] [place] [address] Oct, Suprapubic catheter Z93.59 [facility] [address] [id number] [place] [address] Oct, Anxiety F41.9 and Strain of right should er, subsequent encounter S46.911D [facility] [address] [id number] [place] [address] Sep, [facility] [address] [id number] [place] [address] Sep, [facility] [address] [id number] [place] [address] Sep, Via [employer] [address] [place] [id number] Sep, Suprapubic catheter Z93.59 [facility] [address] [id number] [place] [address] Sep, Anxiety F41.9 and Strain of right should er, subsequent encounter S46.911D [facility] [address] [id number] [place] [address] Aug, [facility] [address] [id number] [place] [address] Aug, [facility] [address] [id number] [place] [address] Aug, Anxiety F41.9 and Strain of right should er, subsequent encounter S46.911D [facility] [employer] [address] [place] [id number] Aug, Suprapubic catheter Z93.59 [facility] [address] [place] [id number] [place] [address] Jul, Strain of right shoulder, subsequent enc ounter S46.911D and Anxiety F41.9 [facility] [address] [place] [id number] [place] [address] Jul, Anxiety F41.9 [facility] [address] [place] [id number] [place] [address] Jun, [facility] [address] [id number] [place] [address] Jun, [facility] [address] [place] [id number] [place] [address] Jun, [facility] [address] [address] Jun, Strain of right shoulder, subsequent enc ounter S46.911D [place] [address] [place] [address] [id number] [place] [address] Jun, Strain of right shoulder, subsequent enc ounter S46.911D [facility] [address] [place] [id number] [place] [address] Jun, Anxiety F41.9 [facility] [address] [place] [id number] Jun, Neurogenic bladder N31.9 and Anxiety F41 .9 [facility] [address] [place] [address] May, Anxiety F41.9 [facility] [address] [place] [id number] [place] [address] May, Dysuria R30.0 [facility] [address] [place] [address] [id number] [place] [address] May, Strain of right shoulder, subsequent enc ounter S46.911D and Anxiety F41.9 [facility] [address] [facility] [place] [address] Apr, Via [facility] [address] [place] [address] Apr, Strain of right shoulder, subsequent enc ounter S46.911D [place] [address] [address] 14 Apr, 2019 Strain of right shoulder, subsequent enc ounter S46.911D and Anxiety F41.9 [facility] [address] [place] [id number] 13 Apr, 2019 Type 2 diabetes mellitus without complic ation, without long-term current use of insulin E11.9 and Neurogenic bladder N31.9 Via [facility] [address] [place] [id number] 11 Apr, 2019 Strain of right shoulder, subsequent enc ounter S46.911D ; History of GI bleed Z87.19 ; Neurogenic bladder N31.9 and Reactive depression F32.9 [place] [address] [address] 10 Apr, 2019 Acute pain of left shoulder M25.512 [place] [address] [address] 07 Apr, 2019 [place] [address] [address] Apr, Anxiety F41.9 and Other chronic pain G89 .29 [facility] [address] [place] [id number] March, Gastrointestinal hemorrhage associated w ith acute gastritis K29.01 [place] [address] [address] March, Via [facility] [address] [place] [address] March, Bronchitis J40 [place] [address] [address] March, Cough R05 [place] [address] [address] March, Other chronic pain G89.29 [place] [address] [address] March, Anxiety F41.9 [facility] [address] [address] March, [facility] [address] [place] [address] Feb, Other chronic pain G89.29 [facility] [address] [address] Feb, Anxiety F41.9 [facility] [address] [address] Feb, Other chronic pain G89.29 Via [employer] [address] [place] [address] Feb, Neurogenic bladder N31.9 and Suprapubic catheter Z93.59 [place] [address] [address] Jan, Anxiety F41.9 [facility] [address] [address] Dec, Anxiety F41.9 [facility] [address] [address] Dec, Other chronic pain G89.29 and Anxiety F4 1.9 [facility] [address] [address] Dec, Via [employer] [address] [place] [address] Dec, Neurogenic bladder N31.9 and Suprapubic catheter Z93.59 [facility] [address] [address] Nov, Other chronic pain G89.29 and Anxiety F4 1.9 [facility] [address] [address] Nov, Via [employer] [address] [place] [address] Nov, Suprapubic catheter Z93.59 [place] [address] [address] Oct, Other chronic pain G89.29 and Anxiety F4 1.9 [facility] [address] [address] Oct, [facility] [address] [address] Oct, Suprapubic catheter Z93.59 [facility] [address] [address] Oct, Via [employer] [address] [place] [address] Oct, [facility] [address] [address] Oct, Anxiety F41.9 [facility] [address] [address] Oct, Anxiety F41.9 [facility] [employer] [address] [place] [address] Oct, Other chronic pain G89.29 [facility] [address] [address] Sep, Other chronic pain G89.29 [facility] [employer] [address] [place] [address] Sep, Suprapubic catheter Z93.59 and Cervicalg ia M54.2 [facility] [address] [address] Sep, [facility] [address] [address] Sep, [facility] [address] [address] Sep, Via [employer] [address] [place] [address] Aug, Cystitis N30.90 [facility] [address] [address] Aug, [place] [address] [address] Aug, Other chronic pain G89.29 [place] [address] [address] Aug, Via [employer] [address] [place] [address] Aug, Encounter for suprapubic catheter care Z 43.5 [place] [address] [address] Jul, Via [employer] [address] [place] [address] Jul, [place] [address] [address] Jul, Other chronic pain G89.29 [place] [address] [address] Jul, [place] [address] [address] Jul, Via [employer] [address] [place] [address] Jun, 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 [place] [address] [address] Jun, Other chronic pain G89.29 [place] [address] [address] Jun, Via [employer] [address] [place] [address] May, Anxiety F41.9 ; Type 2 diabetes mellitus without complication, without long-term current use of insulin E11.9 ; Hypertension I10 ; Low back pain M54.5 ; Paroxysmal atrial fibrillation I48.0 and 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 [place] [address] [address] May, Other chronic pain G89.29 [facility] [employer] [address] [place] [address] May, Low back pain M54.5 [facility] [address] [address] May, [facility] [address] [address] Apr, Other chronic pain G89.29 [facility] [address] [address] Apr, [facility] [address] [address] Apr, Via [employer] [address] [place] [address] Apr, Closed compression fracture of L3 lumbar vertebra with routine healing, subsequent encounter S32.030D [facility] [employer] [address] [place] [address] Apr, Low back pain M54.5 [facility] [employer] [address] [place] [address] Apr, Coccydynia M53.3 [facility] [address] [address] March, [facility] [address] [address] March, Other chronic pain G89.29 [facility] [address] [address] March, [facility] [address] [address] March, [facility] [address] [address] Feb, [facility] [address] [address] Feb, Other chronic pain G89.29 [facility] [employer] [address] [place] [address] Feb, Other chronic pain G89.29 and Anxiety F4 1.9 [facility] [address] [address] Feb, [facility] [address] [facility] [place] [address] Jan, [facility] [address] [place] [address] [id number] [place] [address] Jan, [facility] [address] [id number] [place] [address] Jan, [facility] [address] [id number] [place] [address] Jan, [facility] [address] [facility] [place] [address] Dec, Via [facility] [address] [place] [address] Dec, Peripheral vascular disease I73.9 ; 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 ; Other chronic pain G89.29 ; Anxiety F41.9 ; Reactive depression F32.9 ; Insomnia G47.00 and Type 2 diabetes mellitus without complication, without long-term current use of insulin E11.9 [facility] [place]INDER [id number] [address] Nov, [place] [address] [id number] [place] [address] Nov, Anxiety F41.9 [place] [address] [id number] [place] [address] Nov, [place] [address] [id number] [address] Nov, Anxiety F41.9 [facility] [address] [place] [address] Nov, Status post surgery Z98.890 ; Confused R 41.0 ; Anxiety F41.9 and Other chronic pain G89.29 [place] [address] [id number] [place] [id number] Nov, Other chronic pain G89.29 [place] [address] [address] Oct, [facility] [address] [id number] [place] [address] Oct, Other chronic pain G89.29 [facility] [address] [facility] [place] [address] Oct, Anxiety F41.9 [facility] [address] [id number] [place] [address] Sep, Other chronic pain G89.29 [facility] [address] [id number] [place] [address] Sep, [facility] [address] [place] [address] Aug, Dysuria R30.0 and Anxiety F41.9 [facility] [address] [facility] [place] [address] Aug, [facility] [address] [id number] [place] [address] Aug, Other chronic pain G89.29 [facility] [address] [facility] [place] [address] Jul, Other chronic pain G89.29 [facility] [address] [id number] [place] [address] Jun, [facility] [address] [id number] [place] [address] Jun, Other chronic pain G89.29 [facility] [address] [facility] [place] [address] Jun, [facility] [address] [address] May, Other chronic pain G89.29 [facility] [address] [facility] [place] [address] Apr, Other chronic pain G89.29 [facility] [address] [place] [address] Apr, Reactive depression F32.9 and Pharyngeal dysphagia R13.13 [facility] [address] [address] Apr, Urinary tract infection without hematuri a, site unspecified N39.0 [facility] [address] [address] March, Other chronic pain G89.29 [place] [address] [address] Feb, Other chronic pain G89.29 [place] [address] [address] Feb, [place] [address] [id number] [facility] [place] [address] Feb, [facility] [employer] [address] [place] [address] Feb, Dysuria R30.0 and Ventral hernia without obstruction or gangrene K43.9 [place] [address] [address] Jan, Other chronic pain G89.29 [place] [address] [id number] [place] [address] Dec, Other chronic pain G89.29 [place] [address] [address] Nov, Other chronic pain G89.29 [facility] [address] [place] [address] Nov, Lymphadenitis I88.9 [place] [address] [address] Nov, Other chronic pain G89.29 [place] [address] [address] Nov, [place] [address] [id number] [facility] [place] [address] Nov, Other chronic pain G89.29 [facility] [address] [place] [id number] Oct, Low back pain M54.5 ; Hypertension I10 a nd Type 2 diabetes mellitus without complication, without long-term current use of insulin E11.9 [facility] [address] [address] Oct, [facility] [address] [address] Oct, [facility] [address] [address] Oct, [facility] [address] [address] Oct, [facility] [address] [address] Sep, [facility] [address] [address] Sep, [facility] [address] [address] Aug, Other chronic pain G89.29 [facility] [address] [address] Jul, [facility] [address] [address] Jul, [facility] [address] [address] Jul, [facility] [address] [address] Jun, [facility] [address] [address] Jun, [facility] [employer] [facility] [address] [place] [address] Jun, Low back pain M54.5 ; Other chronic pain G89.29 and Coronary artery disease I25.10 [facility] [address] [address] Jun, [facility] [id number] [place] [address] May, [facility] [id number] [place] [address] May, [facility] [id number] [place] [address] May, Other chronic pain G89.29 [facility] [id number] [place] [address] May, [facility] [id number] [place] [address] Apr, [facility] [id number] [place] [address] Apr, Acute cystitis without hematuria N30.00 [facility] [id number] [place] [address] 16 Apr, 2016 Acute cystitis without hematuria N30.00 ; Coronary artery disease I25.10 ; Low back pain M54.5 and Other chronic pain G89.29 [facility] [id number] [place] [address] Apr, Other chronic pain G89.29 [facility] [id number] [place] [address] March, Other chronic pain G89.29 [facility] [id number] [place] [address] Feb, [facility] [id number] [place] [address] Feb, Arthritis M19.90 [facility] [id number] [place] [address] Feb, [facility] [id number] [place] [address] 30 Jan, 2016 [facility] [id number] [place] [address] Jan, [facility] [address] [address] Jan, Other chronic pain G89.29 [facility] [address] [address] Jan, Hypertension I10 ; Coronary artery disea se I25.10 and Insomnia G47.00 [facility] [address] [address] Jan, [facility] [address] [address] Dec, Right hip pain M25.551 [facility] [address] [address] Dec, [facility] [address] [address] Dec, [facility] [address] [address] Dec, [facility] [address] [address] Dec, Other chronic pain G89.29 [facility] [address] [address] Dec, [facility] [address] [address] Nov, [facility] [address] [address] Nov, Other chronic pain G89.29 [facility] [address] [address] Nov, Right hip pain M25.551 and Coronary karissa ry disease I25.10 [facility] [address] [address] Nov, Other chronic pain G89.29 [facility] [address] [address] Oct, [facility] [address] [address] [address] [place] [address] Oct, [facility] [address] [address] Sep, [facility] [address] [address] Sep, [facility] [address] [address] Aug, [facility] [address] [address] Aug, Hypertension I10 ; Coronary artery disea se I25.10 and Arthritis M19.90 [facility] [address] [address] Jun, [facility] [address] [address] Jun, Essential hypertension, benign 401.1 ; O ther chronic pain 338.29 and Chronic airway obstruction, not elsewhere classified 496 [facility] [address] [address] Jun, [facility] [address] [address] Jun, [facility] [address] [address] Jun, [facility] [address] [address] May, [facility] [address] [address] May, [facility] [address] [address] Apr, [facility] [address] [address] 16 Apr, 2015 [facility] [address] [address] Apr, [facility] [address] [address] March, [facility] [address] [facility] [id number] [place] [address] March, [facility] [address] [id number] [place] [address] March, [facility] [address] [id number] [place] [address] March, [facility] [address] [id number] [place] [address] March, Sialadenitis 527.2 [facility] [address] [id number] [place] [address] Feb, [facility] [address] [id number] [place] [address] Feb, [facility] [address] [id number] [place] [address] Feb, [facility] [address] [id number] [place] [address] Feb, [facility] [address] [id number] [place] [address] Feb, [facility] [address] [id number] [place] [address] Jan, [facility] [address] [id number] [place] [address] Jan, [facility] [address] [id number] [place] [address] Jan, [facility] [address] [facility] [id number] [place] [address] Jan, [facility] [address] [id number] [place] [address] Jan, [facility] [address] [id number] [place] [address] Jan, [facility] [address] [id number] [place] [address] Dec, [facility] [facility] [address] [facility] [id number] [place] [address] Dec, [facility] [place] [facility] [address] [id number] [place] [address] Dec, [facility] [place] [facility] [address] [id number] [place] [address] Dec, [facility] [place] [facility] [address] [id number] [place] [address] Dec, [facility] [place] [facility] [address] [facility] [id number] [place] [address] Dec, [facility] [place] [facility] [address] [id number] [place] [address] Nov, [facility] [place] [facility] [address] [id number] [place] [address] Nov, [facility] [place] [facility] [address] [id number] [place] [address] Nov, [facility] [place] [facility] [address] [id number] [place] [address] Nov, [facility] [place] [facility] [address] [id number] [place] [address] Nov, [facility] [place] [facility] [address] [id number] [place] [address] Nov, [facility] [place] [facility] [address] [id number] [place] [address] Nov, [facility] [place] [facility] [address] [id number] [place] [address] Nov, [facility] [place] [facility] [address] [id number] [place] [address] Nov, [facility] [place] [facility] [address] [id number] [place] [address] Nov, [facility] [place] [facility] [address] [id number] [place] [address] Nov, [facility] [place] [facility] [address] [id number] [place] [address] Nov, [facility] [place] [facility] [address] [facility] [id number] [place] [address] Nov, [facility] [place] [facility] [address] [id number] [place] [address] Nov, [facility] [place] [facility] [address] [id number] [place] [address] Oct, [facility] [place] [facility] [address] [id number] [place] [address] Oct, [facility] [place] [facility] [address] [id number] [place] [address] Oct, [facility] [place] [facility] [address] [id number] [place] [address] Oct, [facility] [place] [facility] [address] [id number] [place] [address] Oct, [facility] [place] [facility] [address] [id number] [place] [address] Oct, [facility] [place] [facility] [address] [id number] [place] [address] Oct, [facility] [place] [facility] [address] [id number] [place] [address] Oct, [facility] [place] [facility] [address] [id number] [place] [address] Oct, [facility] [place] [facility] [address] [id number] [place] [address] Sep, [facility] [place] [facility] [address] [id number] [place] [address] Sep, [facility] [place] [facility] [address] [id number] [place] [address] Sep, [facility] [place] [facility] [address] [id number] [place] [address] Sep, [facility] [place] [facility] [address] [id number] [place] [address] Sep, [facility] [place] [facility] [address] [id number] [place] [address] Sep, [facility] [place] [facility] [address] [id number] [place] [address] Sep, [facility] [place] [facility] [address] [id number] [place] [address] Sep, [facility] [place] [facility] [address] [id number] [place] [address] Sep, [facility] [place] [facility] [address] [id number] [place] [address] Sep, [facility] [place] [facility] [address] [id number] [place] [address] Sep, [facility] [place] [facility] [address] [id number] [place] [address] Sep, [facility] [place] [facility] [address] [id number] [place] [address] Aug, [facility] [place] [facility] [address] [id number] [place] [address] Aug, [facility] [place] [facility] [address] [id number] [place] [address] Aug, [facility] [place] [facility] [address] [id number] [place] [address] Aug, [facility] [place] [facility] [address] [id number] [place] [address] Aug, [facility] [place] [facility] [address] [id number] [place] [address] Aug, [facility] [place] [facility] [address] [id number] [place] [address] Aug, [facility] [place] [facility] [address] [id number] [place] [address] Aug, [facility] [place] [facility] [address] [id number] [place] [address] 30 Jul, 2014 [facility] [place] [facility] [address] [id number] [place] [address] 30 Jul, 2014 [facility] [place] [facility] [address] [id number] [facility] [place] [address] 30 Jul, 2013 [facility] [place] [facility] [address] [id number] [place] [address] 30 Jul, 2013 [facility] [place] [facility] [address] [facility] [id number] [place] [address] 25 Jul, 2013 [facility] [place] [facility] [address] [id number] [place] [address] 25 Jul, 2013 [facility] [place] [facility] [address] [facility] [id number] [facility] [place] [address] 15 Jul, 2013 [facility] [place] [facility] [address] [id number] [place] [address] 15 Jul, 2013 [facility] [place] [facility] [address] [id number] [place] [address] Jul, 2013 [facility] [place] [facility] [address] [id number] [place] [address] Jul, 2013 [facility] [place] [facility] [address] [id number] [place] [address] Jun, [facility] [place] [facility] [address] [id number] [place] [address] Jun, [facility] [place] [facility] [address] [id number] [place] [address] Jun, [facility] [place] [facility] [address] [id number] [place] [address] Jun, [facility] [place] [facility] [address] [id number] [place] [address] Jun, [facility] [place] [facility] [address] [id number] [place] [address] Jun, [facility] [place] [facility] [address] [id number] [place] [address] Jun, [facility] [place] [facility] [address] [id number] [place] [address] Jun, [facility] [place] [facility] [address] [id number] [place] [address] Jun, [facility] [place] [facility] [address] [id number] [place] [address] Jun, [facility] [place] [facility] [address] [facility] [id number] [facility] [place] [address] Jun, [facility] [place] [facility] [address] [facility] [id number] [facility] [place] [address] Jun, [facility] [place] [facility] [address] [facility] [id number] [facility] [place] [address] Jun, [facility] [place] [facility] [address] [facility] [id number] [place] [address] Jun, [facility] [place] [facility] [address] [id number] [place] [address] Jun, [facility] [place] [facility] [address] [id number] [place] [address] Jun, [facility] [place] [facility] [address] [id number] [place] [address] Jun, [facility] [place] [facility] [address] [facility] [id number] [facility] [place] [address] Jun, [facility] [place] [facility] [address] [id number] [place] [address] Jun, [facility] [place] [facility] [address] [id number] [place] [address] Jun, [facility] [place] [facility] [address] [id number] [facility] [place] [address] Jun, [facility] [place] [facility] [address] [facility] [id number] [facility] [place] [address] Jun, [facility] [place] [facility] [address] [id number] [facility] [place] [address] May, [facility] [place] [facility] [address] [facility] [id number] [place] [address] May, [facility] [place] [facility] [address] [facility] [id number] [place] [address] May, [facility] [place] [facility] [address] [id number] [facility] [place] [address] May, [facility] [place] [facility] [address] [facility] [id number] [place] [address] May, [facility] [place] [facility] [address] [facility] [id number] [place] [address] May, 2013 [facility] [place] [facility] [address] [facility] [id number] [place] [address] May, 2013 [facility] [place] [facility] [address] [facility] [id number] [place] [address] May, 2013 [facility] [place] [facility] [address] [facility] [id number] [place] [address] May, [facility] [place] [facility] [address] [id number] [place] [address] May, [facility] [place] [facility] [address] [id number] [place] [address] May, [facility] [place] [facility] [address] [facility] [id number] [place] [address] May, [facility] [place] [facility] [address] [facility] [id number] [place] [address] May, [facility] [place] [facility] [address] [id number] [place] [address] Apr, [facility] [place] [facility] [address] [id number] [place] [address] Apr, [facility] [place] [facility] [address] [facility] [id number] [place] [address] Apr, [facility] [place] [facility] [address] [facility] [id number] [place] [address] Apr, [facility] [place] [facility] [address] [id number] [place] [address] Apr, [facility] [place] [facility] [address] [facility] [id number] [place] [address] Apr, [facility] [place] [facility] [address] [id number] [place] [address] Apr, [facility] [place] [facility] [address] [id number] [place] [address] Apr, [facility] [place] [facility] [address] [facility] [id number] [place] [address] Apr, [facility] [place] [facility] [address] [id number] [place] [address] March, [facility] [place] [facility] [address] [id number] [place] [address] March, [facility] [place] [facility] [address] [facility] [id number] [place] [address] March, [facility] [place] [facility] [address] [id number] [place] [address] March, [facility] [place] [facility] [address] [id number] [place] [address] March, [facility] [place] [facility] [address] [id number] [place] [address] March, [facility] [place] [facility] [address] [id number] [place] [address] March, [facility] [place] [facility] [address] [id number] [place] [address] March, [facility] [place] [facility] [address] [id number] [place] [address] March, [facility] [place] [facility] [address] [id number] [place] [address] March, [facility] [place] [facility] [address] [id number] [place] [address] March, [facility] [place] [facility] [address] [id number] [place] [address] March, [facility] [place] [facility] [address] [id number] [place] [address] March, [facility] [place] [facility] [address] [id number] [place] [address] March, [facility] [place] [facility] [address] [id number] [facility] [place] [address] March, [facility] [place] [facility] [address] [facility] [id number] [facility] [place] [address] March, [facility] [place] [facility] [address] [id number] [place] [address] March, [facility] [place] [facility] [address] [id number] [place] [address] March, [facility] [place] [facility] [address] [id number] [place] [address] March, [facility] [place] [facility] [address] [id number] [place] [address] March, [facility] [place] [facility] [address] [id number] [place] [address] Feb, [facility] [place] [facility] [address] [id number] [place] [address] Feb, [facility] [place] [facility] [address] [id number] [place] [address] Feb, [facility] [place] [facility] [address] [id number] [place] [address] Feb, [facility] [place] [facility] [address] [id number] [place] [address] Feb, [facility] [place] [facility] [address] [id number] [place] [address] Feb, [facility] [place] [facility] [address] [id number] [place] [address] Feb, [facility] [place] [facility] [address] [id number] [place] [address] Feb, [facility] [place] [facility] [address] [id number] [place] [address] Jan, [facility] [place] [facility] [address] [id number] [place] [address] Jan, [facility] [place] [facility] [address] [id number] [place] [address] Jan, [facility] [place] [facility] [address] [facility] [id number] [place] [address] Jan, [facility] [place] [facility] [address] [id number] [place] [address] Jan, [facility] [place] [facility] [address] [id number] [place] [address] Jan, [facility] [place] [facility] [address] [id number] [place] [address] Jan, [facility] [place] [facility] [address] [id number] [place] [address] Jan, [facility] [place] [facility] [address] [id number] [place] [address] Jan, [facility] [place] [facility] [address] [id number] [place] [address] Jan, [facility] [place] [facility] [address] [id number] [place] [address] Dec, [facility] [place] [facility] [address] [id number] [place] [address] Dec, [facility] [place] [facility] [address] [id number] [place] [address] Dec, [facility] [place] [facility] [address] [id number] [place] [address] Dec, [facility] [place] [facility] [address] [id number] [place] [address] Dec, [facility] [place] [facility] [address] [id number] [place] [address] Dec, [facility] [place] [facility] [address] [id number] [place] [address] Dec, [facility] [place] [facility] [address] [id number] [place] [address] Dec, [facility] [place] [facility] [address] [id number] [place] [address] Nov, [facility] [place] [facility] [address] [id number] [place] [address] Nov, [facility] [place] [facility] [address] [facility] [id number] [place] [address] Nov, [facility] [place] [facility] [address] [facility] [id number] [place] [address] Nov, [facility] [place] [facility] [address] [id number] [place] [address] Nov, [facility] [place] [facility] [address] [id number] [place] [address] Nov, [facility] [place] [facility] [address] [facility] [id number] [place] [address] Nov, [facility] [place] [facility] [address] [id number] [place] [address] Nov, [facility] [place] [facility] [address] [id number] [place] [address] Nov, [facility] [place] [facility] [address] [id number] [place] [address] Nov, [facility] [place] [facility] [address] [id number] [place] [address] Nov, [facility] [place] [facility] [address] [id number] [place] [address] Nov, [facility] [place] [facility] [address] [id number] [place] [address] Nov, [facility] [place] [facility] [address] [id number] [place] [address] Oct, [facility] [place] [facility] [address] [facility] [id number] [place] [address] Oct, [facility] [place] [facility] [address] [id number] [place] [address] Oct, [facility] [place] [facility] [address] [id number] [place] [address] Oct, [facility] [place] [facility] [address] [id number] [place] [address] Oct, [facility] [place] [facility] [address] [id number] [place] [address] Oct, 2012 [facility] [place] [facility] [address] [id number] [place] [address] Oct, [facility] [place] [facility] [address] [id number] [place] [address] Oct, [facility] [place] [facility] [address] [id number] [place] [address] Oct, [facility] [place] [facility] [address] [id number] [place] [address] Oct, [facility] [place] [facility] [address] [id number] [place] [address] Oct, [facility] [place] [facility] [address] [id number] [place] [address] Oct, [facility] [place] [facility] [address] [id number] [place] [address] Oct, [facility] [place] [facility] [address] [id number] [place] [address] Oct, [facility] [place] [facility] [address] [id number] [place] [address] Sep, [facility] [place] [facility] [address] [id number] [place] [address] Sep, [facility] [place] [facility] [address] [id number] [place] [address] Sep, [facility] [place] [facility] [address] [id number] [place] [address] Sep, [facility] [place] [facility] [address] [id number] [place] [address] Sep, [facility] [place] [facility] [address] [id number] [place] [address] Sep, [facility] [place] [facility] [address] [id number] [place] [address] Sep, [facility] [place] [facility] [address] [id number] [place] [address] Sep, [facility] [place] [facility] [address] [id number] [place] [address] Sep, 2012 [facility] [place] [facility] [address] [id number] [place] [address] Sep, [facility] [place] [facility] [address] [id number] [place] [address] Aug, 2012 [facility] [place] [facility] [address] [id number] [place] [address] Aug, 2012 [facility] [place] [facility] [address] [id number] [place] [address] Aug, [facility] [place] [facility] [address] [id number] [place] [address] Aug, [facility] [place] [facility] [address] [id number] [place] [address] Aug, 2012 [facility] [place] [facility] [address] [id number] [place] [address] Aug, [facility] [place] [facility] [address] [id number] [place] [address] Aug, [facility] [place] [facility] [address] [id number] [place] [address] Aug, [facility] [place] [facility] [address] [id number] [place] [address] Aug, 2012 [facility] [place] [facility] [address] [id number] [place] [address] Aug, [facility] [place] [facility] [address] [id number] [place] [address] Aug, 2012 [facility] [place] [facility] [address] [id number] [place] [address] 18 Aug, 2013 [facility] [place] [facility] [address] [id number] [place] [address] Aug, 2012 [facility] [place] [facility] [address] [id number] [place] [address] Aug, 2012 [facility] [place] [facility] [address] [id number] [place] [address] 17 Aug, 2013 [facility] [place] [facility] [address] [facility] [id number] [facility] [place] [address] 14 Aug, 2013 [facility] [place] [facility] [address] [facility] [id number] [facility] [place] [address] 14 Aug, 2013 [facility] [place] [facility] [address] [facility] [id number] [facility] [place] [address] Aug, [facility] [place] [facility] [address] [facility] [id number] [place] [address] 20 Jul, 2013 [facility] [place] [facility] [address] [facility] [id number] [place] [address] 19 Jul, 2013 [facility] [place] [facility] [address] [facility] [id number] [place] [address] 18 Jul, 2013 [facility] [place] [facility] [address] [id number] [facility] [place] [address] 11 Jul, 2013 [facility] [place] [facility] [address] [id number] [facility] [place] [address] 11 Jul, 2013 [facility] [place] [facility] [address] [facility] [id number] [facility] [place] [address] 28 Jun, 2013 [facility] [place] [facility] [address] [facility] [id number] [facility] [place] [address] Jun, [facility] [place] [facility] [address] [facility] [id number] [place] [address] 23 Jun, 2013 [facility] [place] [facility] [address] [id number] [facility] [place] [address] 15 Jun, 2013 [facility] [place] [facility] [address] [facility] [id number] [facility] [place] [address] 14 Jun, 2013 [facility] [place] [facility] [address] [facility] [id number] [facility] [place] [address] 13 Jun, 2013 [facility] [place] [facility] [address] [facility] [id number] [facility] [place] [address] 12 Jun, 2013 [facility] [place] [facility] [address] [id number] [facility] [place] [address] 08 Jun, 2013 [facility] [place] [facility] [address] [id number] [facility] [place] [address] Jun, [facility] [place] [facility] [address] [facility] [id number] [facility] [place] [address] Jun, [facility] [place] [facility] [address] [facility] [id number] [facility] [place] [address] May, [facility] [place] [facility] [address] [id number] [place] [address] May, [facility] [place] [facility] [address] [facility] [id number] [facility] [place] [address] May, [facility] [place] [facility] [address] [facility] [id number] [facility] [place] [address] May, [facility] [place] [facility] [address] [id number] [place] [address] May, [facility] [place] [facility] [address] [id number] [place] [address] May, [facility] [place] [facility] [address] [id number] [place] [address] May, [facility] [place] [facility] [address] [facility] [id number] [place] [address] May, [facility] [place] [facility] [address] [id number] [place] [address] May, [facility] [place] [facility] [address] [id number] [place] [address] Apr, [facility] [place] [facility] [address] [id number] [place] [address] Apr, [facility] [place] [facility] [address] [facility] [id number] [place] [address] Apr, [facility] [place] [facility] [address] [id number] [place] [address] Apr, [facility] [place] [facility] [address] [facility] [id number] [place] [address] Apr, [facility] [place] [facility] [address] [id number] [place] [address] Apr, [facility] [address] [id number] [place] [address] Apr, [facility] [place] [facility] [address] [id number] [place] [address] March, [facility] [place] [facility] [address] [id number] [place] [address] Feb, [facility] [place] [facility] [address] [id number] [place] [address] Feb, [facility] [place] [facility] [address] [id number] [place] [address] Feb, [facility] [place] [facility] [address] [id number] [place] [address] Jan, [facility] [place] [facility] [address] [id number] [place] [address] Jan, [facility] [place] [facility] [address] [id number] [place] [address] Jan, [facility] [place] [facility] [address] [id number] [place] [address] Jan, [facility] [place] [facility] [address] [id number] [place] [address] Jan, [facility] [place] [facility] [address] [id number] [place] [address] Jan, [facility] [place] [facility] [address] [id number] [place] [address] Jan, [facility] [address] [id number] [place] [address] Jan, [facility] [address] [id number] [place] [address] Dec, [facility] [address] [id number] [place] [address] Dec, [facility] [address] [id number] [place] [address] Dec, [facility] [address] [id number] [place] [address] 11 Dec, 2012 [facility] [address] [id number] [place] [address] 07 Dec, 2012 [facility] [address] [id number] [place] [address] 06 Dec, 2012 [facility] [address] [id number] [place] [address] Dec, [facility] [address] [id number] [place] [address] Nov, [facility] [address] [id number] [place] [address] Nov, [facility] [address] [id number] [place] [address] Nov, [facility] [address] [id number] [place] [address] Nov, [facility] [id number] [place] [address] Nov, [facility] [address] [id number] [place] [address] Nov, [facility] [address] [id number] [place] [address] Nov, [facility] [address] [id number] [place] [address] Oct, [facility] [address] [id number] [place] [address] Oct, [facility] [address] [id number] [place] [address] Oct, [facility] [id number] [place] [address] Oct, [facility] [address] [id number] [place] [address] Oct, [facility] [id number] [place] [address] Oct, [facility] [address] [id number] [place] [address] Oct, [facility] [address] [id number] [place] [address] Oct, [facility] [address] [id number] [place] [address] Oct, [facility] [address] [id number] [place] [address] Oct, [facility] [address] [id number] [place] [address] Oct, [facility] [address] [id number] [place] [address] Oct, [facility] [address] [id number] [place] [address] Sep, [facility] [address] [id number] [place] [address] Sep, [facility] [address] [id number] [place] [address] Sep, [facility] [address] [id number] [place] [address] Sep, [facility] [address] [id number] [place] [address] Sep, [facility] [address] [id number] [place] [address] Sep, [facility] [address] [id number] [place] [address] Sep, [facility] [address] [id number] [place] [address] Sep, [facility] [address] [id number] [place] [address] Sep, [facility] [address] [id number] [place] [address] Sep, [facility] [address] [id number] [place] [address] Sep, [facility] [address] [id number] [place] [address] Aug, [facility] [address] [id number] [place] [address] Aug, [facility] [address] [id number] [place] [address] Aug, [facility] [address] [id number] [place] [address] Aug, [facility] [address] [id number] [place] [address] Aug, [facility] [address] [id number] [place] [address] Aug, [facility] [address] [id number] [place] [address] Aug, [facility] [address] [id number] [place] [address] Aug, [facility] [address] [id number] [place] [address] Aug, [facility] [address] [id number] [place] [address] Aug, [facility] [address] [id number] [place] [address] Jul, [facility] [address] [id number] [place] [address] 20 Jul, 2012 [facility] [address] [id number] [place] [address] 10 Jul, 2012 [facility] [address] [id number] [place] [address] 06 Jul, 2012 [facility] [address] [id number] [place] [address] 30 Jun, 2012 [facility] [address] [id number] [place] [address] Jun, [facility] [address] [id number] [place] [address] 16 Jun, 2012 [facility] [address] [id number] [place] [address] Jun, [facility] [address] [id number] [place] [address] Jun, [facility] [address] [id number] [place] [address] Jun, [facility] [address] [id number] [place] [address] Jun, [facility] [address] [facility] [id number] [place] [address] May, [facility] [address] [id number] [place] [address] May, [facility] [address] [id number] [place] [address] May, [facility] [address] [id number] [place] [address] May, [facility] [address] [id number] [place] [address] May, [facility] [address] [id number] [place] [address] Apr, [facility] [address] [id number] [place] [address] Apr, [facility] [address] [id number] [place] [address] Apr, [facility] [address] [id number] [place] [address] Apr, [facility] [address] [id number] [place] [address] Apr, [facility] [address] [id number] [place] [address] March, [facility] [address] [id number] [place] [address] March, [facility] [address] [id number] [place] [address] March, [facility] [address] [id number] [place] [address] March, [facility] [address] [id number] [place] [address] March, [facility] [address] [id number] [place] [address] March, [facility] [address] [id number] [place] [address] March, [facility] [address] [id number] [place] [address] March, [facility] [address] [id number] [place] [address] March, [facility] [address] [id number] [place] [address] March, [facility] [address] [id number] [place] [address] Feb, [facility] [address] [id number] [place] [address] Feb, [facility] [address] [id number] [place] [address] Feb, [facility] [address] [id number] [place] [address] Feb, [facility] [address] [id number] [place] [address] Feb, [facility] [address] [id number] [place] [address] Feb, [facility] [address] [id number] [place] [address] Feb, [facility] [address] [id number] [place] [address] Feb, [facility] [address] [id number] [place] [address] Feb, [facility] [address] [id number] [place] [address] Jan, [facility] [address] [id number] [place] [address] Jan, [facility] [address] [id number] [place] [address] Jan, [facility] [address] [id number] [place] [address] Jan, [facility] [address] [id number] [place] [address] Dec, [facility] [address] [id number] [place] [address] Dec, [facility] [address] [id number] [place] [address] Nov, [facility] [address] [id number] [place] [address] Nov, [facility] [address] [id number] [place] [address] Nov, [facility] [id number] [place] [address] Nov, [facility] [address] [id number] [place] [address] Nov, [facility] [address] [id number] [place] [address] Oct, [facility] [address] [id number] [place] [address] Oct, [facility] [address] [id number] [place] [address] Oct, [facility] [address] [id number] [place] [address] Oct, [facility] [address] [id number] [place] [address] Oct, [facility] [address] [id number] [place] [address] Oct, [facility] [address] [id number] [place] [address] Oct, [facility] [address] [id number] [place] [address] Oct, [facility] [address] [id number] [place] [address] Sep, IMMUNIZATIONS No Known Immunizations SOCIAL HISTORY Never Assessed REASON FOR VISIT PLAN OF CARE VITAL SIGNS Height 62 in 2013-12-15 Weight 178.5 lbs 2013-12-15 Temperature 98.3 degrees Fahrenheit 2013-12-15 Heart Rate 110 bpm 2013-12-15 Respiratory Rate 24 2013-12-15 Blood pressure systolic 160 mmHg 2013-12-15 Blood pressure diastolic 64 mmHg 2013-12-15 MEDICATIONS Unknown Medications RESULTS No Results PROCEDURES Procedure Date Ordered Result Body Site TTE W/DOPPLER, COMPLETE Dec 15, 2013 COMPLETE CBC W/AUTO DIFF WBC Dec 15, 2013 MEASURE BLOOD OXYGEN LEVEL Dec 15, 2013 NATRIURETIC PEPTIDE Dec 15, 2013 ASSAY OF MAGNESIUM Dec 15, 2013 COMPREHEN METABOLIC PANEL Dec 15, 2013 CHEST X-RAY Dec 15, 2013 ELECTROCARDIOGRAM, TRACING Dec 15, 2013 VENIPUNCT, ROUTINE* Dec 15, 2013 INSTRUCTIONS MEDICATIONS ADMINISTERED No Known Medications [...] information Hospitalization History [facility]- Urosepsis, ab d pain and fever, discharged 11/27/2017 11/26/2017 Hospitalization History [facility]- Went Unrepsonsive, Hit head 2017 Hospitalization History [facility] [place]- Back Pain 8
--- OUTSIDE RECORDS SUMMARY | 2020-06-18 14:51 | XMS REPORT ---
Author Author Sanjuanita Abdul Doctor Organization [facility] Address Unknown Phone Unavailable Care Team Providers Care Barrel Roller Name Role Phone Migration, Doctor Unavailable Unavailable PROBLEMS Type Condition ICD9-CM Code ASS74-UF Code Onset Dates Condition S tatus SNOMED Code Problem Hypertension I10 Active 4076643 3 Problem Hyperlipidemia E78.5 Active 74236 004 Problem Coronary artery disease I25.10 Active 76590919 Problem Low back pain M54.5 Active 344323 009 Problem Other chronic pain G89.29 Active 8 9844469 Problem Ventral hernia without obstruction or gangrene K43 .9 Active 836468888 Problem Type 2 diabetes mellitus wit hout complication, without long-term current use of insulin E11.9 Active 526499325 Problem Anxiety F41.9 Active 42130999 Problem Peripheral vascular disease I73.9 Ac tive 494429386 Problem Insomnia G47.00 Active 782446609 Problem Microcytic anemia D50.9 Active 23 7760682 Problem Pharyngeal dysphagia R13.13 Active 37438697871988 Problem Other iron deficiency anemia D50.8 A ctive 61316257 Problem Reactive depression F32.9 Active 54008413 Problem Paroxysmal atrial fibrillation I48.0 Active 908424159 Problem 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 Active 06785061 Problem Encounter for suprapubic catheter care Z43.5 Active 610860864 Problem Neurogenic bladder N31.9 Active 3 [id number] ALLERGIES No Information ENCOUNTERS Encounter Location Date Diagnosis [place] [address] [id number] [place] [address] Jan, Anxiety F41.9 and Strain of right should er, subsequent encounter S46.911D [place] [id number] [place] [address] Jan, [facility] [address] [place] [id number] Jan, Neurogenic bladder N31.9 [place] [address] [address] Dec, [place] [address] [address] Dec, [place] [address] [place] [id number] 24 Dec, 2019 Anxiety F41.9 and Strain of right should er, subsequent encounter S46.911D [place] [address] [address] 10 Dec, 2019 Other iron deficiency anemia D50.8 [place] [address] [address] 04 Dec, 2019 Via [facility] [address] [place] [id number] Dec, Encounter for suprapubic catheter care Z 43.5 and Microcytic anemia D50.9 [place] [address] [address] Dec, [place] [address] [address] Nov, Anxiety F41.9 and Strain of right should er, subsequent encounter S46.911D [place] [address] [address] Nov, Hypertension I10 [facility] [address] [place] [id number] Nov, Pneumonia of both lungs due to infectiou s organism, unspecified part of lung J18.9 and Suprapubic catheter Z93.59 [place] [address] [address] Nov, Hypertension I10 and Reactive depression F32.9 [place] [address] [address] Oct, Strain of right shoulder, subsequent enc ounter S46.911D and Anxiety F41.9 [place] [address] [address] Oct, Via [facility] [address] [place] [id number] Oct, Suprapubic catheter Z93.59 and Candidias is, intertriginous B37.2 [facility] [address] [id number] [place] [address] Oct, Suprapubic catheter Z93.59 [facility] [address] [id number] [place] [address] Oct, Anxiety F41.9 and Strain of right should er, subsequent encounter S46.911D [facility] [address] [id number] [place] [address] Sep, [facility] [id number] [place] [address] Sep, [facility] [id number] [place] [address] Sep, Via [facility] [address] [place] [id number] Sep, Suprapubic catheter Z93.59 [facility] [address] [id number] [place] [address] Sep, Anxiety F41.9 and Strain of right should er, subsequent encounter S46.911D [facility] [address] [id number] [place] [address] Aug, [facility] [address] [id number] [place] [address] Aug, [facility] [address] [id number] [place] [address] Aug, Anxiety F41.9 and Strain of right should er, subsequent encounter S46.911D [facility] [address] [place] [id number] Aug, Suprapubic catheter Z93.59 [facility] [address] [id number] [place] [address] Jul, Strain of right shoulder, subsequent enc ounter S46.911D and Anxiety F41.9 [facility] [id number] [place] [address] Jul, Anxiety F41.9 [facility] [id number] [place] [address] Jun, [facility] [id number] [place] [address] Jun, [facility] [address] [address] Jun, [facility] [address] [address] Jun, Strain of right shoulder, subsequent enc ounter S46.911D [place] [id number] [place] [address] Jun, Strain of right shoulder, subsequent enc ounter S46.911D [place] [address] [place] [address] [id number] [place] [address] Jun, Anxiety F41.9 [facility] [address] [place] [id number] Jun, Neurogenic bladder N31.9 and Anxiety F41 .9 [facility] [address] [place] [id number] May, Anxiety F41.9 [place] [address] [id number] [place] [address] May, Dysuria R30.0 [place] [id number] [place] [address] May, Strain of right shoulder, subsequent enc ounter S46.911D and Anxiety F41.9 [place] [address] [id number] [place] [address] Apr, [facility] [address] [place] [id number] Apr, Strain of right shoulder, subsequent enc ounter S46.911D [place] [address] [address] 14 Apr, 2019 Strain of right shoulder, subsequent enc ounter S46.911D and Anxiety F41.9 [facility] [address] [place] [id number] 13 Apr, 2019 Type 2 diabetes mellitus without complic ation, without long-term current use of insulin E11.9 and Neurogenic bladder N31.9 [facility] [address] [place] [id number] 11 Apr, 2019 Strain of right shoulder, subsequent enc ounter S46.911D ; History of GI bleed Z87.19 ; Neurogenic bladder N31.9 and Reactive depression F32.9 [place] [address] [address] 10 Apr, 2019 Acute pain of left shoulder M25.512 [place] [address] [address] Apr, [place] [address] [address] Apr, Anxiety F41.9 and Other chronic pain G89 .29 [facility] [address] [place] [id number] March, Gastrointestinal hemorrhage associated w ith acute gastritis K29.01 [place] [address] [address] March, [facility] [address] [place] [id number] March, Bronchitis J40 [place] [address] [address] March, Cough R05 [place] [address] [address] March, Other chronic pain G89.29 [place] [address] [address] March, Anxiety F41.9 [place] [address] [address] March, [facility] [address] [address] Feb, Other chronic pain G89.29 [facility] [address] [address] Feb, Anxiety F41.9 [facility] [address] [address] Feb, Other chronic pain G89.29 Via [facility] [address] [place] [id number] Feb, Neurogenic bladder N31.9 and Suprapubic catheter Z93.59 [place] [address] [address] Jan, Anxiety F41.9 [facility] [address] [address] Dec, Anxiety F41.9 [facility] [address] [address] Dec, Other chronic pain G89.29 and Anxiety F4 1.9 [facility] [address] [address] Dec, Via [facility] [address] [place] [id number] Dec, Neurogenic bladder N31.9 and Suprapubic catheter Z93.59 [facility] [address] [address] Nov, Other chronic pain G89.29 and Anxiety F4 1.9 [facility] [address] [address] Nov, Via [facility] [address] [place] [id number] Nov, Suprapubic catheter Z93.59 [facility] [address] [address] Oct, Other chronic pain G89.29 and Anxiety F4 1.9 [facility] [address] [address] Oct, [facility] [address] [address] Oct, Suprapubic catheter Z93.59 [facility] [address] [address] Oct, [facility] [address] [place] [id number] Oct, [facility] [address] [address] Oct, Anxiety F41.9 [place] [address] [address] Oct, Anxiety F41.9 Via [facility] [address] [place] [id number] Oct, Other chronic pain G89.29 [facility] [address] [address] Sep, Other chronic pain G89.29 [facility] [address] [place] [id number] Sep, Suprapubic catheter Z93.59 and Cervicalg ia M54.2 [facility] [address] [address] Sep, [facility] [address] [address] Sep, [facility] [address] [address] Sep, [facility] [address] [place] [id number] Aug, Cystitis N30.90 [facility] [address] [address] Aug, [facility] [address] [address] Aug, Other chronic pain G89.29 [place] [address] [address] Aug, Via [facility] [address] [place] [id number] Aug, Encounter for suprapubic catheter care Z 43.5 [place] [address] [address] Jul, Via [facility] [address] [place] [id number] Jul, [place] [address] [address] Jul, Other chronic pain G89.29 [place] [address] [address] Jul, [place] [address] [address] Jul, Via [facility] [address] [place] [id number] Jun, 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 [place] [address] [address] Jun, Other chronic pain G89.29 [place] [address] [address] Jun, Via [facility] [address] [place] [id number] May, Anxiety F41.9 ; Type 2 diabetes mellitus without complication, without long-term current use of insulin E11.9 ; Hypertension I10 ; Low back pain M54.5 ; Paroxysmal atrial fibrillation I48.0 and 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 [place] [address] [address] May, Other chronic pain G89.29 [facility] [address] [place] [id number] May, Low back pain M54.5 [place] [address] [address] May, [facility] [id number] [place] [address] Apr, Other chronic pain G89.29 [facility] [id number] [place] [address] Apr, [facility] [id number] [place] [address] Apr, [facility] [address] [place] [id number] Apr, Closed compression fracture of L3 lumbar vertebra with routine healing, subsequent encounter S32.030D [facility] [address] [place] [id number] Apr, Low back pain M54.5 [facility] [address] [place] [id number] Apr, Coccydynia M53.3 [facility] [id number] [place] [address] March, [facility] [id number] [place] [address] March, Other chronic pain G89.29 [facility] [id number] [place] [address] March, [facility] [id number] [place] [address] March, [facility] [id number] [place] [address] Feb, [facility] [id number] [place] [address] Feb, Other chronic pain G89.29 [facility] [address] [place] [id number] Feb, Other chronic pain G89.29 and Anxiety F4 1.9 [facility] [id number] [place] [address] Feb, [facility] [id number] [place] [address] Jan, [facility] [address] [place] [address] Jan, [facility] [address] [place] [address] Jan, [facility] [address] [place] [address] Jan, [place] [address] [address] Dec, [facility] [address] [place] [id number] Dec, Peripheral vascular disease I73.9 ; 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 ; Other chronic pain G89.29 ; Anxiety F41.9 ; Reactive depression F32.9 ; Insomnia G47.00 and Type 2 diabetes mellitus without complication, without long-term current use of insulin E11.9 [facility] ADRIENNE [place] [id number] [place] [address] Nov, [place] [address] [id number] [id number] Nov, Anxiety F41.9 [place] [address] [address] [place] [address] Nov, [place] [address] [id number] [place] [id number] Nov, Anxiety F41.9 [facility] [address] [place] [id number] Nov, Status post surgery Z98.890 ; Confused R 41.0 ; Anxiety F41.9 and Other chronic pain G89.29 [place] [address] [id number] [id number] Nov, Other chronic pain G89.29 [place] [id number] [place] [address] Oct, [place] [address] [id number] [place] [id number] 07 Oct, 2017 Other chronic pain G89.29 [facility] [address] [address] Oct, Anxiety F41.9 [facility] [address] [id number] [place] [id number] Sep, Other chronic pain G89.29 [facility] [address] [id number] [place] [id number] Sep, [facility] [address] [place] [id number] Aug, Dysuria R30.0 and Anxiety F41.9 [facility] [address] [address] Aug, [facility] [address] [id number] [place] [id number] Aug, Other chronic pain G89.29 [facility] [address] [address] Jul, Other chronic pain G89.29 [facility] [address] [id number] [place] [id number] Jun, [facility] [address] [id number] [place] [id number] Jun, Other chronic pain G89.29 [facility] [address] [address] Jun, [facility] [address] [address] May, Other chronic pain G89.29 [facility] [address] [address] Apr, Other chronic pain G89.29 [facility] [address] [place] [id number] Apr, Reactive depression F32.9 and Pharyngeal dysphagia R13.13 [place] [address] [address] Apr, Urinary tract infection without hematuri a, site unspecified N39.0 [facility] [address] [address] March, Other chronic pain G89.29 [place] [address] [address] Feb, Other chronic pain G89.29 [place] [address] [address] Feb, [place] [address] [id number] [facility] [place] [id number] Feb, [facility] [address] [place] [id number] Feb, Dysuria R30.0 and Ventral hernia without obstruction or gangrene K43.9 [place] [address] [address] Jan, Other chronic pain G89.29 [place] [address] [id number] [place] [id number] Dec, Other chronic pain G89.29 [place] [address] [address] Nov, Other chronic pain G89.29 [facility] [address] [place] [id number] Nov, Lymphadenitis I88.9 [facility] [address] [address] Nov, Other chronic pain G89.29 [place] [address] [address] Nov, [place] [address] [id number] [place] [id number] Nov, Other chronic pain G89.29 [facility] [address] [place] [id number] Oct, Low back pain M54.5 ; Hypertension I10 a nd Type 2 diabetes mellitus without complication, without long-term current use of insulin E11.9 [facility] [address] [place] [address] Oct, [facility] [address] [place] [address] Oct, [facility] [address] [address] Oct, [facility] [address] [address] Oct, [facility] [address] [address] Sep, [facility] [address] [address] Sep, [facility] [address] [address] Aug, Other chronic pain G89.29 [facility] [address] [place] [address] Jul, [facility] [address] [address] Jul, [facility] [address] [address] Jul, [facility] [address] [address] Jun, [facility] [address] [place] [address] Jun, [facility] [address] [place] [id number] Jun, Low back pain M54.5 ; Other chronic pain G89.29 and Coronary artery disease I25.10 [facility] [address] [place] [address] Jun, [facility] [address] [address] 27 May, 2016 [facility] [id number] [place] [address] May, [facility] [id number] [place] [address] May, Other chronic pain G89.29 [facility] [id number] [place] [address] May, [facility] [id number] [place] [address] Apr, [facility] [address] [place] [address] 17 Apr, 2016 Acute cystitis without hematuria N30.00 [facility] [id number] [place] [address] 16 Apr, 2016 Acute cystitis without hematuria N30.00 ; Coronary artery disease I25.10 ; Low back pain M54.5 and Other chronic pain G89.29 [facility] [id number] [place] [address] Apr, Other chronic pain G89.29 [facility] [id number] [place] [address] March, Other chronic pain G89.29 [facility] [id number] [place] [address] 18 Feb, 2016 [facility] [id number] [place] [address] 15 Feb, 2016 Arthritis M19.90 [facility] [id number] [place] [address] Feb, [facility] [address] [place] [address] 30 Jan, 2016 [facility] [id number] [place] [address] Jan, [facility] [address] [place] [address] Jan, Other chronic pain G89.29 [facility] [address] [place] [address] Jan, Hypertension I10 ; Coronary artery disea se I25.10 and Insomnia G47.00 [facility] [address] [place] [address] Jan, [facility] [address] [address] Dec, Right hip pain M25.551 [facility] [address] [address] Dec, [facility] [address] [address] Dec, [facility] [address] [address] Dec, [facility] [address] [address] Dec, Other chronic pain G89.29 [facility] [address] [address] Dec, [facility] [address] [address] Nov, [facility] [address] [address] Nov, Other chronic pain G89.29 [facility] [address] [address] Nov, Right hip pain M25.551 and Coronary karissa ry disease I25.10 [facility] [address] [address] Nov, Other chronic pain G89.29 [facility] [address] [address] Oct, [facility] [address] [address] Oct, [facility] [id number] [place] [address] Sep, [facility] [id number] [place] [address] Sep, [facility] [id number] [place] [address] Aug, [facility] [id number] [place] [address] Aug, Hypertension I10 ; Coronary artery disea se I25.10 and Arthritis M19.90 [facility] [id number] [place] [address] Jun, [facility] [id number] [place] [address] Jun, Essential hypertension, benign 401.1 ; O ther chronic pain 338.29 and Chronic airway obstruction, not elsewhere classified 496 [facility] [id number] [place] [address] Jun, [facility] [id number] [place] [address] Jun, [facility] [id number] [place] [address] Jun, [facility] [id number] [place] [address] May, [facility] [id number] [place] [address] May, [facility] [id number] [place] [address] Apr, [facility] [id number] [place] [address] Apr, [facility] [id number] [place] [address] Apr, [facility] [id number] [place] [address] March, [facility] [id number] [place] [address] March, [facility] [address] [id number] [place] [address] March, [facility] [address] [id number] [place] [address] March, [facility] [address] [id number] [place] [address] March, Sialadenitis 527.2 [facility] [address] [facility] [id number] [place] [address] Feb, [facility] [address] [facility] [id number] [place] [address] Feb[facility] [address] [facility] [id number] [place] [address] Feb[facility] [address] [facility] [id number] [place] [address] Feb, [facility] [address] [facility] [id number] [place] [address] Feb, [facility] [address] [facility] [id number] [place] [address] Jan, [facility] [address] [facility] [id number] [place] [address] Jan, [facility] [address] [facility] [id number] [place] [address] Jan, [facility] [address] [facility] [id number] [place] [address] Jan, [facility] [address] [id number] [place] [address] Jan[facility] [address] [facility] [id number] [place] [address] Jan, [facility] [address] [id number] [place] [address] Dec, [facility] [address] [id number] [place] [address] Dec, [facility] [address] [facility] [id number] [place] [address] Dec, [facility] [address] [id number] [place] [address] Dec, [facility] [address] [id number] [place] [address] Dec, [facility] [place] [facility] [address] [id number] [place] [address] Dec, [facility] [place] [facility] [address] [id number] [place] [address] Nov, [facility] [place] [facility] [address] [id number] [place] [address] Nov, [facility] [place] [facility] [address] [id number] [place] [address] Nov, [facility] [place] [facility] [address] [id number] [place] [address] Nov, [facility] [place] [facility] [address] [id number] [place] [address] Nov, [facility] [place] [facility] [address] [id number] [place] [address] Nov, [facility] [place] [facility] [address] [id number] [place] [address] Nov, [facility] [place] [facility] [address] [id number] [place] [address] Nov, [facility] [place] [facility] [address] [id number] [place] [address] Nov, [facility] [place] [facility] [address] [id number] [place] [address] Nov, [facility] [place] [facility] [address] [id number] [place] [address] Nov, [facility] [place] [facility] [address] [id number] [place] [address] Nov, [facility] [place] [facility] [address] [id number] [place] [address] Nov, [facility] [place] [facility] [address] [id number] [place] [address] Nov, [facility] [place] [facility] [address] [id number] [place] [address] Oct, [facility] [place] [facility] [address] [id number] [place] [address] Oct, [facility] [place] [facility] [address] [id number] [place] [address] Oct, [facility] [place] [facility] [address] [id number] [place] [address] Oct, [facility] [place] [facility] [address] [id number] [place] [address] Oct, [facility] [place] [facility] [address] [id number] [place] [address] Oct, [facility] [place] [facility] [address] [id number] [place] [address] Oct, [facility] [place] [facility] [address] [id number] [place] [address] Oct, [facility] [place] [facility] [address] [id number] [place] [address] Oct, [facility] [place] [facility] [address] [id number] [place] [address] Sep, [facility] [place] [facility] [address] [id number] [place] [address] Sep, [facility] [place] [facility] [address] [id number] [place] [address] Sep, [facility] [place] [facility] [address] [id number] [place] [address] Sep, [facility] [place] [facility] [address] [id number] [place] [address] Sep, [facility] [place] [facility] [address] [id number] [place] [address] Sep, [facility] [place] [facility] [address] [id number] [place] [address] Sep, [facility] [place] [facility] [address] [id number] [place] [address] Sep, [facility] [place] [facility] [address] [id number] [place] [address] Sep, [facility] [place] [facility] [address] [id number] [place] [address] Sep, [facility] [place] [facility] [address] [id number] [place] [address] Sep, [facility] [place] [facility] [address] [id number] [place] [address] Sep, [facility] [place] [facility] [address] [id number] [place] [address] Aug, [facility] [place] [facility] [address] [id number] [place] [address] Aug, [facility] [place] [facility] [address] [id number] [place] [address] Aug, [facility] [place] [facility] [address] [id number] [place] [address] Aug, [facility] [place] [facility] [address] [id number] [place] [address] Aug, [facility] [place] [facility] [address] [id number] [place] [address] Aug, [facility] [place] [facility] [address] [id number] [place] [address] Aug, [facility] [place] [facility] [address] [id number] [place] [address] Aug, [facility] [place] [facility] [address] [id number] [place] [address] 30 Jul, 2014 [facility] [place] [facility] [address] [id number] [place] [address] 30 Jul, 2014 [facility] [place] [facility] [address] [id number] [place] [address] 30 Jul, 2013 [facility] [place] [facility] [address] [id number] [place] [address] 30 Jul, 2013 [facility] [place] [facility] [address] [facility] [id number] [place] [address] Jul, 2013 [facility] [place] [facility] [address] [facility] [id number] [place] [address] 25 Jul, 2013 [facility] [place] [facility] [address] [facility] [id number] [place] [address] 15 Jul, 2013 [facility] [place] [facility] [address] [facility] [id number] [place] [address] 15 Jul, 2014 [facility] [place] [facility] [address] [facility] [id number] [place] [address] Jul, [facility] [place] [facility] [address] [id number] [place] [address] Jul, [facility] [place] [facility] [address] [id number] [place] [address] Jun, [facility] [place] [facility] [address] [facility] [id number] [place] [address] Jun, [facility] [place] [facility] [address] [id number] [place] [address] Jun, [facility] [place] [facility] [address] [id number] [place] [address] Jun, [facility] [place] [facility] [address] [id number] [place] [address] Jun, [facility] [place] [facility] [address] [facility] [id number] [place] [address] Jun, [facility] [place] [facility] [address] [id number] [place] [address] Jun, [facility] [place] [facility] [address] [facility] [id number] [place] [address] Jun, [facility] [place] [facility] [address] [id number] [place] [address] Jun, [facility] [place] [facility] [address] [id number] [place] [address] Jun, [facility] [place] [facility] [address] [id number] [place] [address] Jun, [facility] [place] [facility] [address] [facility] [id number] [place] [address] Jun, [facility] [place] [facility] [address] [facility] [id number] [place] [address] Jun, [facility] [place] [facility] [address] [facility] [id number] [place] [address] Jun, [facility] [place] [facility] [address] [facility] [id number] [place] [address] Jun, [facility] [place] [facility] [address] [id number] [place] [address] Jun, [facility] [place] [facility] [address] [id number] [place] [address] Jun, [facility] [place] [facility] [address] [id number] [place] [address] Jun, [facility] [place] [facility] [address] [facility] [id number] [place] [address] Jun, [facility] [place] [facility] [address] [facility] [id number] [place] [address] Jun, [facility] [place] [facility] [address] [id number] [place] [address] Jun, [facility] [place] [facility] [address] [facility] [id number] [place] [address] Jun, [facility] [place] [facility] [address] [id number] [place] [address] May, [facility] [place] [facility] [address] [id number] [place] [address] May, [facility] [place] [facility] [address] [facility] [id number] [place] [address] May, [facility] [place] [facility] [address] [id number] [place] [address] May, [facility] [place] [facility] [address] [facility] [id number] [place] [address] May, 2013 [facility] [place] [facility] [address] [facility] [id number] [place] [address] May, 2013 [facility] [place] [facility] [address] [facility] [id number] [place] [address] May, 2013 [facility] [place] [facility] [address] [facility] [id number] [place] [address] May, 2013 [facility] [place] [facility] [address] [facility] [id number] [place] [address] May, 2013 [facility] [place] [facility] [address] [id number] [place] [address] May, [facility] [place] [facility] [address] [id number] [place] [address] May, [facility] [place] [facility] [address] [id number] [place] [address] May, [facility] [place] [facility] [address] [facility] [id number] [place] [address] May, [facility] [place] [facility] [address] [id number] [place] [address] Apr, [facility] [place] [facility] [address] [id number] [place] [address] Apr, [facility] [place] [facility] [address] [id number] [place] [address] Apr, [facility] [place] [facility] [address] [facility] [id number] [place] [address] Apr, [facility] [place] [facility] [address] [facility] [id number] [place] [address] Apr, [facility] [place] [facility] [address] [facility] [id number] [place] [address] Apr, [facility] [place] [facility] [address] [id number] [place] [address] Apr, [facility] [place] [facility] [address] [id number] [place] [address] Apr, [facility] [place] [facility] [address] [facility] [id number] [place] [address] Apr, [facility] [place] [facility] [address] [facility] [id number] [place] [address] March, [facility] [place] [facility] [address] [id number] [place] [address] March, [facility] [place] [facility] [address] [id number] [place] [address] March, [facility] [place] [facility] [address] [facility] [id number] [place] [address] March, [facility] [place] [facility] [address] [id number] [place] [address] March, [facility] [place] [facility] [address] [id number] [place] [address] March, [facility] [place] [facility] [address] [id number] [place] [address] March, [facility] [place] [facility] [address] [facility] [id number] [place] [address] March, [facility] [place] [facility] [address] [id number] [place] [address] March, [facility] [place] [facility] [address] [id number] [place] [address] March, [facility] [place] [facility] [address] [id number] [place] [address] March, [facility] [place] [facility] [address] [facility] [id number] [place] [address] March, [facility] [place] [facility] [address] [id number] [place] [address] March, [facility] [place] [facility] [address] [id number] [place] [address] March, [facility] [place] [facility] [address] [id number] [place] [address] March, [facility] [place] [facility] [address] [id number] [place] [address] March, [facility] [place] [facility] [address] [id number] [place] [address] March, [facility] [place] [facility] [address] [id number] [place] [address] March, [facility] [place] [facility] [address] [id number] [place] [address] March, [facility] [place] [facility] [address] [id number] [place] [address] March, [facility] [place] [facility] [address] [id number] [place] [address] Feb, [facility] [place] [facility] [address] [id number] [place] [address] Feb, [facility] [place] [facility] [address] [id number] [place] [address] Feb, [facility] [place] [facility] [address] [id number] [place] [address] Feb, [facility] [place] [facility] [address] [id number] [place] [address] Feb, [facility] [place] [facility] [address] [id number] [place] [address] Feb, [facility] [place] [facility] [address] [id number] [place] [address] Feb, [facility] [place] [facility] [address] [id number] [place] [address] Feb, [facility] [place] [facility] [address] [id number] [place] [address] Jan, [facility] [place] [facility] [address] [id number] [place] [address] Jan, [facility] [place] [facility] [address] [id number] [place] [address] Jan, [facility] [place] [facility] [address] [id number] [place] [address] Jan, [facility] [place] [facility] [address] [facility] [id number] [place] [address] Jan, [facility] [place] [facility] [address] [facility] [id number] [place] [address] Jan, [facility] [place] [facility] [address] [id number] [place] [address] Jan, [facility] [place] [facility] [address] [id number] [place] [address] Jan, [facility] [place] [facility] [address] [facility] [id number] [place] [address] Jan, [facility] [place] [facility] [address] [id number] [place] [address] Jan, [facility] [place] [facility] [address] [id number] [place] [address] Dec, [facility] [place] [facility] [address] [id number] [place] [address] Dec, [facility] [place] [facility] [address] [id number] [place] [address] Dec, [facility] [place] [facility] [address] [id number] [place] [address] Dec, [facility] [place] [facility] [address] [id number] [place] [address] Dec, [facility] [place] [facility] [address] [id number] [place] [address] Dec, [facility] [place] [facility] [address] [id number] [place] [address] Dec, [facility] [place] [facility] [address] [id number] [place] [address] Dec, [facility] [place] [facility] [address] [id number] [place] [address] Nov, [facility] [place] [facility] [address] [id number] [place] [address] Nov, [facility] [place] [facility] [address] [id number] [place] [address] 28 Nov, 2013 [facility] [place] [facility] [address] [id number] [place] [address] Nov, [facility] [place] [facility] [address] [id number] [place] [address] Nov, [facility] [place] [facility] [address] [id number] [place] [address] Nov, [facility] [place] [facility] [address] [id number] [place] [address] Nov, [facility] [place] [facility] [address] [id number] [place] [address] Nov, [facility] [place] [facility] [address] [id number] [place] [address] Nov, [facility] [place] [facility] [address] [id number] [place] [address] Nov, [facility] [place] [facility] [address] [id number] [place] [address] Nov, [facility] [place] [facility] [address] [id number] [place] [address] Nov, [facility] [place] [facility] [address] [id number] [place] [address] Nov, [facility] [place] [facility] [address] [id number] [place] [address] Oct, [facility] [place] [facility] [address] [id number] [place] [address] Oct, [facility] [place] [facility] [address] [id number] [place] [address] Oct, [facility] [place] [facility] [address] [id number] [place] [address] Oct, [facility] [place] [facility] [address] [id number] [place] [address] Oct, [facility] [place] [facility] [address] [id number] [place] [address] Oct, [facility] [place] [facility] [address] [id number] [place] [address] Oct, 2012 [facility] [place] [facility] [address] [id number] [place] [address] Oct, [facility] [place] [facility] [address] [id number] [place] [address] Oct, 2012 [facility] [place] [facility] [address] [id number] [place] [address] Oct, 2012 [facility] [place] [facility] [address] [id number] [place] [address] Oct, [facility] [place] [facility] [address] [id number] [place] [address] Oct, [facility] [place] [facility] [address] [id number] [place] [address] Oct, [facility] [place] [facility] [id number] [place] [address] Oct, [facility] [place] [facility] [address] [id number] [place] [address] Sep, [facility] [place] [facility] [address] [id number] [place] [address] 14 Sep, 2013 [facility] [place] [facility] [address] [id number] [place] [address] Sep, [facility] [place] [facility] [address] [id number] [place] [address] Sep, [facility] [place] [facility] [address] [id number] [place] [address] Sep, [facility] [place] [facility] [address] [id number] [place] [address] Sep, [facility] [place] [facility] [address] [id number] [place] [address] Sep, [facility] [place] [facility] [address] [id number] [place] [address] Sep, [facility] [place] [facility] [address] [id number] [place] [address] Sep, [facility] [place] [facility] [address] [facility] [id number] [place] [address] Sep, [facility] [place] [facility] [address] [id number] [place] [address] Aug, [facility] [place] [facility] [address] [id number] [place] [address] Aug, [facility] [place] [facility] [address] [id number] [place] [address] Aug, [facility] [place] [facility] [address] [facility] [id number] [place] [address] Aug, [facility] [place] [facility] [address] [id number] [place] [address] Aug, [facility] [place] [facility] [address] [id number] [place] [address] Aug, [facility] [place] [facility] [address] [id number] [place] [address] Aug, [facility] [place] [facility] [address] [id number] [place] [address] Aug, [facility] [place] [facility] [address] [id number] [place] [address] Aug, [facility] [place] [facility] [address] [id number] [place] [address] Aug, [facility] [place] [facility] [address] [id number] [place] [address] Aug, 2012 [facility] [place] [facility] [address] [id number] [place] [address] 18 Aug, 2012 [facility] [address] [facility] [id number] [place] [address] 18 Aug, 2012 [facility] [address] [id number] [place] [address] 18 Aug, 2012 [facility] [address] [facility] [id number] [place] [address] 17 Aug, 2012 [facility] [address] [id number] [place] [address] 14 Aug, 2013 [facility] [address] [id number] [place] [address] 14 Aug, 2013 [facility] [address] [facility] [id number] [place] [address] 01 Aug, 2013 [facility] [address] [facility] [id number] [place] [address] 20 Jul, 2013 [facility] [address] [facility] [id number] [place] [address] 19 Jul, 2012 [facility] [address] [id number] [place] [address] 18 Jul, 2013 [facility] [address] [id number] [place] [address] 11 Jul, 2013 [facility] [address] [facility] [id number] [place] [address] 11 Jul, 2013 [facility] [address] [facility] [id number] [place] [address] 28 Jun, 2013 [facility] [address] [id number] [place] [address] Jun, [facility] [address] [id number] [place] [address] Jun, [facility] [address] [facility] [id number] [place] [address] 15 Jun, 2013 [facility] [address] [facility] [id number] [place] [address] 14 Jun, 2013 [facility] [address] [facility] [id number] [place] [address] Jun, [facility] [address] [id number] [place] [address] Jun, [facility] [address] [id number] [place] [address] 08 Jun, 2013 [facility] [address] [facility] [id number] [place] [address] Jun, [facility] [address] [id number] [place] [address] Jun, [facility] [address] [facility] [id number] [place] [address] May, [facility] [address] [facility] [id number] [place] [address] May, [facility] [address] [id number] [place] [address] May, [facility] [address] [facility] [id number] [place] [address] May, [facility] [address] [facility] [id number] [place] [address] May, [facility] [address] [facility] [id number] [place] [address] May, [facility] [address] [facility] [id number] [place] [address] May, [facility] [address] [facility] [id number] [place] [address] May, [facility] [address] [facility] [id number] [place] [address] May, [facility] [address] [facility] [id number] [place] [address] Apr, [facility] [address] [facility] [id number] [place] [address] Apr, [facility] [address] [facility] [id number] [place] [address] Apr, [facility] [address] [facility] [id number] [place] [address] Apr, [facility] [address] [id number] [place] [address] Apr, [facility] [address] [facility] [id number] [place] [address] Apr, [facility] [address] [facility] [id number] [place] [address] Apr, [facility] [id number] [place] [address] March, [facility] [address] [facility] [id number] [place] [address] Feb, [facility] [address] [facility] [id number] [place] [address] Feb, [facility] [address] [facility] [id number] [place] [address] Feb, [facility] [address] [facility] [id number] [place] [address] Jan, [facility] [address] [facility] [id number] [place] [address] Jan, [facility] [address] [facility] [id number] [place] [address] Jan, [facility] [address] [facility] [id number] [place] [address] 14 Jan, 2013 [facility] [address] [facility] [id number] [place] [address] Jan, [facility] [address] [facility] [id number] [place] [address] 08 Jan, 2013 [facility] [address] [facility] [id number] [place] [address] Jan, [facility] [address] [facility] [id number] [place] [address] Jan, [facility] [address] [facility] [id number] [place] [address] Dec, [facility] [address] [facility] [id number] [place] [address] Dec, [facility] [address] [facility] [id number] [place] [address] Dec, [facility] [address] [id number] [place] [address] Dec, [facility] [address] [facility] [id number] [place] [address] 07 Dec, 2012 [facility] [address] [facility] [id number] [place] [address] Dec, [facility] [address] [facility] [id number] [place] [address] Dec, [facility] [address] [facility] [id number] [place] [address] Nov, [facility] [address] [facility] [id number] [place] [address] Nov, [facility] [address] [facility] [id number] [place] [address] Nov, [facility] [address] [facility] [id number] [place] [address] Nov, [facility] [address] [facility] [id number] [place] [address] Nov, [facility] [address] [id number] [place] [address] Nov, [facility] [address] [id number] [place] [address] Nov, [facility] [address] [facility] [id number] [place] [address] Oct, [facility] [address] [facility] [id number] [place] [address] Oct, [facility] [address] [facility] [id number] [place] [address] Oct, [facility] [address] [facility] [id number] [place] [address] Oct, [facility] [address] [facility] [id number] [place] [address] 17 Oct, 2012 [facility] [address] [facility] [id number] [place] [address] 17 Oct, 2012 [facility] [address] [facility] [id number] [place] [address] Oct, [facility] [address] [facility] [id number] [place] [address] Oct, [facility] [address] [facility] [id number] [place] [address] Oct, [facility] [address] [facility] [id number] [place] [address] Oct, [facility] [address] [id number] [place] [address] Oct, [facility] [address] [facility] [id number] [place] [address] Oct, [facility] [address] [id number] [place] [address] Sep, [facility] [address] [id number] [place] [address] Sep, [facility] [address] [facility] [id number] [place] [address] Sep, [facility] [address] [id number] [place] [address] Sep, [facility] [address] [facility] [id number] [place] [address] Sep, [facility] [address] [facility] [id number] [place] [address] Sep, [facility] [address] [facility] [id number] [place] [address] Sep, [facility] [address] [facility] [id number] [place] [address] Sep, [facility] [address] [facility] [id number] [place] [address] Sep, [facility] [address] [facility] [id number] [place] [id number] Sep, [facility] [address] [facility] [id number] [place] [address] Sep, [facility] [address] [id number] [place] [address] Aug, [facility] [address] [facility] [id number] [place] [address] Aug, [facility] [address] [id number] [place] [address] Aug, [facility] [address] [id number] [place] [address] Aug, [facility] [address] [id number] [place] [address] Aug, [facility] [address] [id number] [place] [address] Aug, [facility] [address] [id number] [place] [address] Aug, [facility] [address] [id number] [place] [address] Aug, [facility] [address] [id number] [place] [address] Aug, [facility] [address] [id number] [place] [address] Aug, [facility] [address] [facility] [id number] [place] [address] 22 Jul, 2012 [facility] [address] [id number] [place] [address] 20 Jul, 2012 [facility] [address] [id number] [place] [address] 10 Jul, 2012 [facility] [address] [id number] [place] [address] 06 Jul, 2012 [facility] [address] [facility] [id number] [place] [address] 30 Jun, 2012 [facility] [address] [id number] [place] [address] Jun, [facility] [address] [facility] [id number] [place] [address] 16 Jun, 2012 [facility] [address] [id number] [place] [address] Jun, [facility] [address] [id number] [place] [address] Jun, [facility] [address] [facility] [id number] [place] [address] Jun, [facility] [address] [facility] [id number] [place] [address] Jun, [facility] [address] [facility] [id number] [place] [address] May, [facility] [address] [facility] [id number] [place] [address] May, [facility] [address] [facility] [id number] [place] [address] May, [facility] [address] [facility] [id number] [place] [address] May, [facility] [address] [facility] [id number] [place] [address] May, [facility] [address] [facility] [id number] [place] [address] Apr, [facility] [address] [facility] [id number] [place] [address] Apr, [facility] [address] [facility] [id number] [place] [address] Apr, [facility] [address] [facility] [id number] [place] [address] Apr, [facility] [address] [facility] [id number] [place] [address] Apr, [facility] [address] [facility] [id number] [place] [address] March, [facility] [address] [facility] [id number] [place] [address] March, [facility] [address] [id number] [place] [address] March, [facility] [address] [id number] [place] [address] March, [facility] [address] [facility] [id number] [place] [address] March, [facility] [address] [facility] [id number] [place] [address] March, [facility] [address] [facility] [id number] [place] [address] March, [facility] [address] [facility] [id number] [place] [address] March, [facility] [address] [id number] [place] [address] March, [facility] [address] [facility] [id number] [place] [address] March, [facility] [address] [facility] [id number] [place] [address] 30 Feb, 2012 [facility] [address] [facility] [id number] [place] [address] Feb, [facility] [address] [facility] [id number] [place] [address] Feb, [facility] [address] [facility] [id number] [place] [address] Feb, [facility] [address] [facility] [id number] [place] [address] Feb, [facility] [address] [facility] [id number] [place] [address] Feb, [facility] [address] [id number] [place] [address] Feb, [facility] [address] [facility] [id number] [place] [address] Feb, [facility] [address] [facility] [id number] [place] [address] Feb, [facility] [address] [facility] [id number] [place] [address] 08 Jan, 2012 [facility] [address] [facility] [id number] [place] [address] Jan, [facility] [address] [facility] [id number] [place] [address] 05 Jan, 2012 [facility] [address] [id number] [place] [address] Jan, [facility] [address] [facility] [id number] [place] [address] Dec, [facility] [address] [facility] [id number] [place] [address] Dec, [facility] [address] [facility] [id number] [place] [address] Nov, [facility] [id number] [place] [address] Nov, [facility] [id number] [place] [address] Nov, [facility] [address] [facility] [id number] [place] [address] Nov, [facility] [address] [facility] [id number] [place] [address] Nov, [facility] [address] [facility] [id number] [place] [address] Oct, [facility] [address] [facility] [id number] [place] [address] Oct, [facility] [address] [facility] [id number] [place] [address] Oct, [facility] [id number] [place] [address] Oct, [facility] [address] [facility] [id number] [place] [address] Oct, [facility] [id number] [place] [address] Oct, [facility] [address] [facility] [id number] [place] [address] Oct, [facility] [address] [facility] [id number] [place] [address] Oct, [facility] [address] [id number] [place] [address] Sep, IMMUNIZATIONS No Known Immunizations SOCIAL HISTORY [...] History [facility]- Urosepsis, ab d pain and fever, discharged 11/27/2017 11/26/2017 Hospitalization History [facility]- Went Unrepsonsive, Hit head 2017 Hospitalization History [facility]- Back Pain 8
--- OUTSIDE RECORDS SUMMARY | 2020-06-18 14:52 | XMS REPORT ---
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 Name Role Phone Migration, Doctor Unavailable Unavailable PROBLEMS Type Condition ICD9-CM Code LVL48-AZ Code Onset Dates Condition S tatus SNOMED Code Problem Hypertension I10 Active 1923654 3 Problem Hyperlipidemia E78.5 Active 42241 004 Problem Coronary artery disease I25.10 Active 75513110 Problem Low back pain M54.5 Active 755006 009 Problem Other chronic pain G89.29 Active 8 5325895 Problem Ventral hernia without obstruction or gangrene K43 .9 Active 758922229 Problem Type 2 diabetes mellitus wit hout complication, without long-term current use of insulin E11.9 Active 618969372 Problem Anxiety F41.9 Active 69865580 Problem Peripheral vascular disease I73.9 Ac tive 886114954 Problem Insomnia G47.00 Active 244920605 Problem Microcytic anemia D50.9 Active 23 3293513 Problem Pharyngeal dysphagia R13.13 Active 56327868488140 Problem Other iron deficiency anemia D50.8 A ctive 95166687 Problem Reactive depression F32.9 Active 06969634 Problem Paroxysmal atrial fibrillation I48.0 Active 987339479 Problem 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 Active 37340103 Problem Encounter for suprapubic catheter care Z43.5 Active 634807728 Problem Neurogenic bladder N31.9 Active 3 02320262 ALLERGIES No Information ENCOUNTERS Encounter Location Date Diagnosis [facility] [id number] [place] [address] Jan, Via [facility] [address] [place] [id number] Jan, Neurogenic bladder N31.9 [facility] [address] [facility] [place] [address] Dec, [facility] [address] [facility] [place] [address] Dec, [place] [address] [address] 24 Dec, 2019 Anxiety F41.9 and Strain of right should er, subsequent encounter S46.911D [place] [address] [address] 10 Dec, 2019 Other iron deficiency anemia D50.8 [place] [address] [address] 04 Dec, 2019 Via [facility] [employer] [address] [place] [id number] Dec, Encounter for suprapubic catheter care Z 43.5 and Microcytic anemia D50.9 [place] [address] [address] Dec, [place] [address] [address] Nov, Anxiety F41.9 and Strain of right should er, subsequent encounter S46.911D [place] [address] [address] Nov, Hypertension I10 Via [facility] [employer] [address] [place] [id number] Nov, Pneumonia of both lungs due to infectiou s organism, unspecified part of lung J18.9 and Suprapubic catheter Z93.59 [place] [address] [address] Nov, Hypertension I10 and Reactive depression F32.9 [place] [address] [address] Oct, Strain of right shoulder, subsequent enc ounter S46.911D and Anxiety F41.9 [place] [address] [address] Oct, [facility] [address] [place] [id number] Oct, Suprapubic catheter Z93.59 and Candidias is, intertriginous B37.2 [facility] [id number] [place] [address] Oct, Suprapubic catheter Z93.59 [facility] [id number] [place] [address] Oct, Anxiety F41.9 and Strain of right should er, subsequent encounter S46.911D [facility] [id number] [place] [address] Sep, [facility] [id number] [place] [address] Sep, [facility] [address] [address] Sep, Via [employer] [address] [place] [address] Sep, Suprapubic catheter Z93.59 [facility] [address] [place] [address] Sep, Anxiety F41.9 and Strain of right should er, subsequent encounter S46.911D [facility] [id number] [place] [address] Aug, [facility] [address] [place] [address] Aug, [facility] [id number] [place] [address] Aug, Anxiety F41.9 and Strain of right should er, subsequent encounter S46.911D Via [facility] [employer] [address] [place] [id number] Aug, Suprapubic catheter Z93.59 [facility] [id number] [place] [address] Jul, Strain of right shoulder, subsequent enc ounter S46.911D and Anxiety F41.9 [facility] [id number] [place] [address] Jul, Anxiety F41.9 [facility] [address] [facility] [place] [address] Jun, [facility] [id number] [place] [address] Jun, [facility] [address] [facility] [place] [address] Jun, [place] [id number] [place] [address] Jun, Strain of right shoulder, subsequent enc ounter S46.911D [place] [id number] [place] [address] Jun, Strain of right shoulder, subsequent enc ounter S46.911D [place] [id number] [place] [address] Jun, Anxiety F41.9 [facility] [address] [place] [id number] Jun, Neurogenic bladder N31.9 and Anxiety F41 .9 [facility] [address] [place] [id number] May, Anxiety F41.9 [place] [id number] [place] [address] May, Dysuria R30.0 [place] [id number] [place] [address] May, Strain of right shoulder, subsequent enc ounter S46.911D and Anxiety F41.9 [place] [address] [facility] [place] [address] Apr, Via [facility] [address] [place] [id number] Apr, Strain of right shoulder, subsequent enc ounter S46.911D [place] [address] [facility] [place] [address] Apr, Strain of right shoulder, subsequent enc ounter S46.911D and Anxiety F41.9 Via [employer] [address] [place] [id number] 13 Apr, 2019 Type 2 diabetes mellitus without complic ation, without long-term current use of insulin E11.9 and Neurogenic bladder N31.9 Via [employer] [address] [place] [address] 11 Apr, 2019 Strain of right shoulder, subsequent enc ounter S46.911D ; History of GI bleed Z87.19 ; Neurogenic bladder N31.9 and Reactive depression F32.9 [place] [address] [address] 10 Apr, 2019 Acute pain of left shoulder M25.512 [place] [address] [address] Apr, [place] [address] [address] Apr, Anxiety F41.9 and Other chronic pain G89 .29 Via [employer] [address] [place] [id number] March, Gastrointestinal hemorrhage associated w ith acute gastritis K29.01 [place] [address] [address] March, Via [employer] [address] [place] [id number] March, Bronchitis J40 [place] [address] [address] March, Cough R05 [place] [address] [address] March, Other chronic pain G89.29 [place] [address] [address] March, Anxiety F41.9 [place] [address] [address] March, [place] [address] [address] Feb, Other chronic pain G89.29 [facility] [address] [address] Feb, Anxiety F41.9 [facility] [address] [address] Feb, Other chronic pain G89.29 [facility] [address] [place] [id number] Feb, Neurogenic bladder N31.9 and Suprapubic catheter Z93.59 [facility] [address] [address] Jan, Anxiety F41.9 [facility] [address] [address] Dec, Anxiety F41.9 [facility] [address] [address] Dec, Other chronic pain G89.29 and Anxiety F4 1.9 [facility] [address] [address] Dec, Via [facility] [employer] [facility] [address] [place] [address] Dec, Neurogenic bladder N31.9 and Suprapubic catheter Z93.59 [address] [address] [address] Nov, Other chronic pain G89.29 and Anxiety F4 1.9 [facility] [address] [address] Nov, Via [employer] [facility] [address] [place] [id number] Nov, Suprapubic catheter Z93.59 [facility] [address] [address] Oct, Other chronic pain G89.29 and Anxiety F4 1.9 [facility] [address] [address] Oct, [facility] [address] [address] Oct, Suprapubic catheter Z93.59 [facility] [address] [address] Oct, Via [employer] [address] [place] [id number] Oct, [facility] [address] [address] Oct, Anxiety F41.9 [facility] [address] [address] Oct, Anxiety F41.9 [facility] [employer] [address] [place] [id number] Oct, Other chronic pain G89.29 [facility] [address] [address] Sep, Other chronic pain G89.29 Via [employer] [address] [place] [address] Sep, Suprapubic catheter Z93.59 and Cervicalg ia M54.2 [facility] [address] [address] Sep, [facility] [address] [address] Sep, [facility] [address] [address] Sep, Via [employer] [address] [place] [id number] Aug, Cystitis N30.90 [facility] [address] [address] Aug, [facility] [address] [address] Aug, Other chronic pain G89.29 [facility] [address] [address] Aug, Via [employer] [address] [place] [id number] Aug, Encounter for suprapubic catheter care Z 43.5 [address] [address] [address] Jul, Via [employer] [address] [place] [id number] Jul, [address] [address] [address] Jul, Other chronic pain G89.29 [address] [place] [address] [address] Jul, [address] [address] [address] Jul, Via [employer] [address] [place] [id number] Jun, 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 [address] [place] [address] Jun, Other chronic pain G89.29 [address] [place] [address] [address] Jun, Via [employer] [address] [place] [id number] May, Anxiety F41.9 ; Type 2 diabetes mellitus without complication, without long-term current use of insulin E11.9 ; Hypertension I10 ; Low back pain M54.5 ; Paroxysmal atrial fibrillation I48.0 and 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 [address] [address] [address] May, Other chronic pain G89.29 [facility] [employer] [address] [place] [id number] May, Low back pain M54.5 [address] [place] [address] May, [address] [place] [address] [address] Apr, Other chronic pain G89.29 [facility] [address] [address] Apr, [facility] [address] [address] Apr, Via [facility] [employer] [address] [place] [id number] Apr, Closed compression fracture of L3 lumbar vertebra with routine healing, subsequent encounter S32.030D [facility] [employer] [address] [place] [id number] 14 Apr, 2018 Low back pain M54.5 [facility] [employer] [address] [place] [id number] Apr, Coccydynia M53.3 [facility] [address] [address] March, [facility] [address] [address] March, Other chronic pain G89.29 [facility] [address] [address] March, [facility] [address] [address] March, [facility] [address] [address] Feb, [facility] [address] [address] Feb, Other chronic pain G89.29 [facility] [address] [place] [id number] Feb, Other chronic pain G89.29 and Anxiety F4 1.9 [facility] [address] [address] Feb, [facility] [address] [address] Jan, [facility] [address] [address] Jan, [facility] [address] [facility] [place] [address] Jan, [facility] [address] [facility] [place] [address] Jan, [facility] [address] [id number] [place] [address] Dec, Via [employer] [address] [place] [id number] Dec, Peripheral vascular disease I73.9 ; 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 ; Other chronic pain G89.29 ; Anxiety F41.9 ; Reactive depression F32.9 ; Insomnia G47.00 and Type 2 diabetes mellitus without complication, without long-term current use of insulin E11.[address] [id number] [place] [address] Nov, [address] [id number] [place] [id number] Nov, Anxiety F41.9 [address] [place] [facility] [place] [address] Nov, [address] [id number] [place] [id number] Nov, Anxiety F41.9 Via [employer] [address] [place] [id number] Nov, Status post surgery Z98.890 ; Confused R 41.0 ; Anxiety F41.9 and Other chronic pain G89.29 [address] [id number] [place] [address] Nov, Other chronic pain G89.29 [address] [place] [facility] [place] [address] Oct, [address] [id number] [place] [address] Oct, Other chronic pain G89.29 [address] [facility] [place] [address] Oct, Anxiety F41.9 [facility] [address] [id number] [place] [id number] Sep, Other chronic pain G89.29 [facility] [address] [id number] [place] [id number] Sep, [facility] [employer] [address] [place] [id number] Aug, Dysuria R30.0 and Anxiety F41.9 [facility] [id number] [place] [address] Aug, [address] [id number] [place] [id number] Aug, Other chronic pain G89.29 [address] [place] [address] Jul, Other chronic pain G89.29 [facility] [address] [id number] [place] [id number] Jun, [facility] [address] [id number] [place] [id number] Jun, Other chronic pain G89.29 [facility] [address] [address] Jun, [address] [place] [address] May, Other chronic pain G89.29 [facility] [address] [address] Apr, Other chronic pain G89.29 [facility] [employer] [address] [place] [id number] Apr, Reactive depression F32.9 and Pharyngeal dysphagia R13.13 [facility] [id number] [place] [address] Apr, Urinary tract infection without hematuri a, site unspecified N39.0 [address] [place] [address] [address] March, Other chronic pain G89.29 [facility] [address] [address] Feb, Other chronic pain G89.29 [address] [address] Feb, [address] [id number] [place] [address] Feb, [facility] [employer] [address] [place] [id number] Feb, Dysuria R30.0 and Ventral hernia without obstruction or gangrene K43.9 [address] [address] [address] Jan, Other chronic pain G89.29 [address] [place] [id number] [place] [address] Dec, Other chronic pain G89.29 [address] [address] [address] Nov, Other chronic pain G89.29 [facility] [employer] [address] [place] [id number] Nov, Lymphadenitis I88.9 [address] [place] [address] Nov, Other chronic pain G89.29 [address] [address] [address] Nov, [address] [id number] [place] [address] Nov, Other chronic pain G89.29 [facility] [address] [place] [address] Oct, Low back pain M54.5 ; Hypertension I10 a nd Type 2 diabetes mellitus without complication, without long-term current use of insulin E11.9 [address] [address] [address] Oct, [facility] [address] [facility] [place] [address] Oct, [facility] [address] [facility] [place] [address] Oct, [facility] [id number] [place] [address] Oct, [facility] [id number] [place] [address] Sep, [facility] [id number] [place] [address] Sep, [facility] [id number] [place] [address] Aug, Other chronic pain G89.29 [facility] [id number] [place] [address] Jul, [facility] [id number] [place] [address] Jul, [facility] [id number] [place] [address] Jul, [facility] [id number] [place] [address] Jun, [facility] [id number] [place] [address] Jun, Via [facility] [address] [place] [id number] Jun, Low back pain M54.5 ; Other chronic pain G89.29 and Coronary artery disease I25.10 [facility] [id number] [place] [address] Jun, [facility] [id number] [place] [address] May, [facility] [id number] [place] [address] May, [facility] [address] [address] May, Other chronic pain G89.29 [facility] [address] [address] May, [facility] [address] [address] Apr, [facility] [address] [address] Apr, Acute cystitis without hematuria N30.00 [facility] [address] [address] 16 Apr, 2016 Acute cystitis without hematuria N30.00 ; Coronary artery disease I25.10 ; Low back pain M54.5 and Other chronic pain G89.29 [facility] [address] [address] Apr, Other chronic pain G89.29 [facility] [address] [address] March, Other chronic pain G89.29 [facility] [address] [address] 18 Feb, 2016 [facility] [address] [address] Feb, Arthritis M19.90 [facility] [address] [address] Feb, [facility] [address] [address] 30 Jan, 2016 [facility] [address] [address] Jan, [facility] [address] [address] Jan, Other chronic pain G89.29 [facility] [address] [address] Jan, Hypertension I10 ; Coronary artery disea se I25.10 and Insomnia G47.00 [facility] [id number] [place] [address] Jan, [facility] [address] [address] Dec, Right hip pain M25.551 [facility] [address] [address] Dec, [facility] [address] [address] Dec, [facility] [address] [address] Dec, [facility] [address] [address] Dec, Other chronic pain G89.29 [facility] [address] [address] Dec, [facility] [address] [address] Nov, [facility] [address] [address] Nov, Other chronic pain G89.29 [facility] [address] [address] Nov, Right hip pain M25.551 and Coronary karissa ry disease I25.10 [facility] [address] [address] Nov, Other chronic pain G89.29 [facility] [address] [address] Oct, [facility] [address] [address] Oct, [facility] [address] [address] Sep, [facility] [address] [address] Sep, [facility] [id number] [place] [address] Aug, [facility] [id number] [place] [address] Aug, Hypertension I10 ; Coronary artery disea se I25.10 and Arthritis M19.90 [facility] [address] [address] Jun, [facility] [address] [address] Jun, Essential hypertension, benign 401.1 ; O ther chronic pain 338.29 and Chronic airway obstruction, not elsewhere classified 496 [facility] [address] [id number] [place] [address] Jun, [facility] [address] [address] Jun, [facility] [id number] [place] [address] Jun, [facility] [address] [id number] [place] [address] May, [facility] [address] [id number] [place] [address] May, [facility] [address] [id number] [place] [address] Apr, [facility] [address] [id number] [place] [address] Apr, [facility] [address] [id number] [place] [address] Apr, [facility] [id number] [place] [address] March, [facility] [address] [id number] [place] [address] March, [facility] [address] [address] March, [facility] [address] [id number] [place] [address] March, [facility] [address] [id number] [place] [address] March, Sialadenitis 527.2 [facility] [address] [id number] [place] [address] Feb, [facility] [address] [id number] [place] [address] Feb, [facility] [address] [id number] [place] [address] Feb, [facility] [address] [id number] [place] [address] Feb, [facility] [address] [id number] [place] [address] Feb, [facility] [address] [id number] [place] [address] Jan, [facility] [address] [id number] [place] [address] Jan, [facility] [address] [id number] [place] [address] Jan, [facility] [address] [id number] [place] [address] Jan, [facility] [address] [facility] [id number] [place] [address] Jan, [facility] [address] [id number] [place] [address] Jan, [facility] [address] [id number] [place] [address] Dec, [facility] [address] [id number] [place] [address] Dec, [facility] [address] [id number] [place] [address] Dec, [facility] [address] [id number] [place] [address] 10 Dec, 2014 [facility] [address] [facility] [id number] [place] [address] Dec, [facility] [address] [id number] [place] [address] Dec, [facility] [address] [id number] [place] [address] Nov, [facility] [address] [id number] [place] [address] Nov, [facility] [address] [id number] [place] [address] Nov, [facility] [address] [id number] [place] [address] Nov, [facility] [address] [id number] [place] [address] Nov, [facility] [address] [id number] [place] [address] Nov, [facility] [address] [id number] [place] [address] Nov, [facility] [address] [id number] [place] [address] Nov, [facility] [address] [id number] [place] [address] Nov, [facility] [address] [id number] [place] [address] Nov, [facility] [address] [id number] [place] [address] Nov, [facility] [address] [id number] [place] [address] Nov, [facility] [address] [id number] [place] [address] Nov, [facility] [address] [id number] [place] [address] Nov, [facility] [address] [id number] [place] [address] Oct, [facility] [address] [id number] [place] [address] Oct, [facility] [address] [id number] [place] [address] Oct, [facility] [address] [id number] [place] [address] Oct, [facility] [address] [id number] [place] [address] Oct, [facility] [address] [id number] [place] [address] Oct, [facility] [address] [id number] [place] [address] Oct, [facility] [address] [id number] [place] [address] Oct, [facility] [address] [id number] [place] [address] Oct, [facility] [address] [id number] [place] [address] Sep, [facility] [address] [id number] [place] [address] Sep, [facility] [address] [id number] [place] [address] Sep, [facility] [address] [id number] [place] [address] Sep, [facility] [address] [id number] [place] [address] Sep, [facility] [address] [id number] [place] [address] Sep, [facility] [address] [id number] [place] [address] Sep, [facility] [address] [id number] [place] [address] Sep, [facility] [address] [facility] [id number] [place] [address] Sep, [facility] [address] [id number] [place] [address] Sep, [facility] [address] [id number] [place] [address] Sep, [facility] [address] [id number] [place] [address] Sep, [facility] [address] [id number] [place] [address] Aug, [facility] [address] [id number] [place] [address] Aug, [facility] [address] [id number] [place] [address] Aug, [facility] [address] [id number] [place] [address] Aug, [facility] [address] [id number] [place] [address] Aug, [facility] [address] [id number] [place] [address] Aug, [facility] [address] [id number] [place] [address] Aug, [facility] [address] [id number] [place] [address] Aug, [facility] [address] [id number] [place] [address] 30 Jul, 2013 [facility] [address] [id number] [place] [address] 30 Jul, 2013 [facility] [address] [id number] [place] [address] 30 Jul, 2013 [facility] [address] [id number] [place] [address] 30 Jul, 2013 [facility] [address] [id number] [facility] [address] Jul, 2013 [facility] [address] [id number] [facility] [place] [address] Jul, [facility] [address] [facility] [id number] [place] [address] 15 Jul, 2014 [facility] [address] [facility] [id number] [place] [address] 15 Jul, 2014 [facility] [address] [facility] [id number] [place] [address] Jul, [facility] [address] [facility] [id number] [place] [address] Jul, [facility] [address] [id number] [place] [address] Jun, [facility] [address] [id number] [place] [address] Jun, [facility] [address] [id number] [place] [address] Jun, [facility] [address] [facility] [id number] [place] [address] Jun, [facility] [address] [id number] [place] [address] Jun, [facility] [address] [id number] [place] [address] Jun, [facility] [address] [facility] [id number] [place] [address] Jun, [facility] [address] [id number] [place] [address] Jun, [facility] [address] [id number] [place] [address] Jun, [facility] [address] [facility] [id number] [place] [address] Jun, [facility] [address] [id number] [place] [address] Jun, [facility] [address] [id number] [place] [address] Jun, [facility] [address] [facility] [id number] [facility] [address] Jun, [facility] [address] [facility] [id number] [place] [address] Jun, [facility] [address] [facility] [id number] [facility] [address] Jun, [facility] [address] [facility] [id number] [facility] [place] [address] Jun, [facility] [address] [id number] [place] [address] Jun, [facility] [address] [facility] [id number] [place] [address] Jun, [facility] [address] [id number] [place] [address] Jun, [facility] [address] [facility] [id number] [place] [address] Jun, [facility] [address] [id number] [place] [address] Jun, [facility] [address] [id number] [place] [address] Jun, [facility] [address] [id number] [place] [address] May, [facility] [address] [facility] [id number] [place] [address] May, [facility] [address] [id number] [place] [address] May, [facility] [address] [facility] [id number] [place] [address] May, [facility] [address] [id number] [place] [address] May, [facility] [address] [id number] [facility] [address] May, 2013 [facility] [address] [id number] [facility] [place] [address] May, 2013 [facility] [address] [facility] [id number] [facility] [place] [address] May, 2013 [facility] [address] [id number] [facility] [place] [address] May, 2013 [facility] [address] [facility] [id number] [facility] [place] [address] May, 2013 [facility] [address] [facility] [id number] [facility] [address] May, 2013 [facility] [address] [facility] [id number] [facility] [address] May, 2013 [facility] [address] [id number] [facility] [address] May, 2013 [facility] [address] [id number] [place] [address] Apr, [facility] [address] [facility] [id number] [facility] [place] [address] Apr, [facility] [address] [id number] [facility] [address] Apr, [facility] [address] [id number] [place] [address] Apr, [facility] [address] [id number] [facility] [address] Apr, [facility] [address] [facility] [id number] [facility] [place] [address] Apr, [facility] [address] [id number] [place] [address] Apr, [facility] [address] [facility] [id number] [facility] [place] [address] Apr, [facility] [address] [id number] [facility] [address] Apr, [facility] [address] [id number] [place] [address] March, [facility] [address] [id number] [place] [address] March, [facility] [address] [id number] [place] [address] March, [facility] [address] [id number] [place] [address] March, [facility] [address] [id number] [place] [address] March, [facility] [address] [id number] [place] [address] March, [facility] [address] [id number] [place] [address] March, [facility] [address] [id number] [place] [address] March, [facility] [address] [id number] [place] [address] March, [facility] [address] [id number] [place] [address] March, [facility] [address] [id number] [place] [address] March, [facility] [address] [id number] [place] [address] March, [facility] [address] [id number] [place] [address] March, [facility] [address] [id number] [place] [address] March, [facility] [address] [id number] [place] [address] March, [facility] [address] [id number] [place] [address] March, [facility] [address] [id number] [place] [address] March, [facility] [address] [facility] [id number] [place] [address] March, [facility] [address] [id number] [place] [address] March, [facility] [address] [id number] [place] [address] March, [facility] [address] [id number] [place] [address] Feb, [facility] [address] [facility] [id number] [place] [address] Feb, [facility] [address] [id number] [place] [address] Feb, [facility] [address] [id number] [place] [address] Feb, [facility] [address] [id number] [place] [address] Feb, [facility] [address] [id number] [place] [address] Feb, [facility] [address] [id number] [place] [address] Feb, [facility] [address] [id number] [place] [address] Feb, [facility] [address] [id number] [place] [address] Jan, [facility] [address] [id number] [place] [address] Jan, [facility] [address] [id number] [place] [address] Jan, [facility] [address] [id number] [place] [address] Jan, [facility] [address] [id number] [place] [address] Jan, [facility] [address] [id number] [place] [address] Jan, [facility] [address] [facility] [id number] [place] [address] Jan, [facility] [address] [id number] [place] [address] Jan, [facility] [address] [id number] [place] [address] Jan, [facility] [address] [id number] [place] [address] Jan, [facility] [address] [facility] [id number] [place] [address] Dec, [facility] [address] [id number] [place] [address] Dec, [facility] [address] [id number] [place] [address] Dec, [facility] [address] [id number] [place] [address] Dec, [facility] [address] [id number] [place] [address] Dec, [facility] [address] [id number] [place] [address] Dec, [facility] [address] [id number] [place] [address] Dec, [facility] [address] [id number] [place] [address] Dec, [facility] [address] [id number] [place] [address] Nov, [facility] [address] [id number] [place] [address] Nov, [facility] [address] [id number] [place] [address] Nov, [facility] [address] [id number] [place] [address] Nov, [facility] [address] [id number] [place] [address] Nov, [facility] [address] [id number] [place] [address] Nov, [facility] [address] [id number] [place] [address] Nov, [facility] [address] [id number] [place] [address] Nov, [facility] [address] [id number] [place] [address] Nov, [facility] [address] [id number] [place] [address] Nov, [facility] [address] [id number] [place] [address] Nov, [facility] [address] [id number] [place] [address] Nov, [facility] [address] [id number] [place] [address] Nov, [facility] [address] [id number] [place] [address] Oct, [facility] [address] [id number] [place] [address] Oct, [facility] [address] [id number] [place] [address] Oct, [facility] [address] [id number] [place] [address] Oct, [facility] [address] [id number] [place] [address] Oct, [facility] [address] [id number] [place] [address] Oct, [facility] [address] [id number] [place] [address] Oct, [facility] [address] [id number] [place] [address] 18 Oct, 2012 [facility] [address] [id number] [place] [address] Oct, [facility] [address] [id number] [place] [address] Oct, [facility] [address] [id number] [place] [address] Oct, [facility] [address] [id number] [place] [address] Oct, [facility] [address] [id number] [place] [address] Oct, [facility] [address] [id number] [place] [address] Oct, [facility] [id number] [place] [address] Sep, [facility] [address] [id number] [place] [address] 14 Sep, 2013 [facility] [address] [id number] [place] [address] Sep, [facility] [id number] [place] [address] Sep, [facility] [id number] [place] [address] Sep, [facility] [id number] [place] [address] Sep, [facility] [address] [id number] [place] [address] Sep, [facility] [id number] [place] [address] Sep, [facility] [address] [id number] [place] [address] Sep, [facility] [id number] [place] [address] Sep, [facility] [address] [id number] [place] [address] 24 Aug, 2012 [facility] [address] [facility] [id number] [place] [address] 24 Aug, 2012 [facility] [address] [facility] [id number] [place] [address] 24 Aug, 2012 [facility] [address] [facility] [id number] [place] [address] 24 Aug, 2012 [facility] [address] [facility] [id number] [place] [address] 23 Aug, 2012 [facility] [address] [facility] [id number] [place] [address] 23 Aug, 2012 [facility] [address] [id number] [place] [address] 23 Aug, 2012 [facility] [address] [id number] [place] [address] 23 Aug, 2012 [facility] [address] [id number] [place] [address] 22 Aug, 2012 [facility] [address] [facility] [id number] [place] [address] 22 Aug, 2012 [facility] [address] [id number] [place] [address] 18 Aug, 2012 [facility] [address] [id number] [place] [address] 18 Aug, 2012 [facility] [address] [facility] [id number] [place] [address] 18 Aug, 2012 [facility] [address] [facility] [id number] [place] [address] 18 Aug, 2012 [facility] [address] [id number] [place] [address] 17 Aug, 2012 [facility] [address] [facility] [id number] [place] [address] 14 Aug, 2012 [facility] [address] [id number] [place] [address] 14 Aug, 2013 [facility] [address] [id number] [place] [address] Aug, [facility] [address] [facility] [id number] [place] [address] 20 Jul, 2013 [facility] [address] [facility] [id number] [place] [address] 19 Jul, 2012 [facility] [address] [id number] [place] [address] 18 Jul, 2013 [facility] [address] [facility] [id number] [place] [address] 11 Jul, 2013 [facility] [address] [id number] [place] [address] Jul, [facility] [address] [id number] [place] [address] Jun, [facility] [address] [id number] [place] [address] Jun, [facility] [address] [id number] [place] [address] Jun, [facility] [address] [id number] [place] [address] Jun, [facility] [address] [id number] [place] [address] Jun, [facility] [address] [id number] [place] [address] Jun, [facility] [address] [id number] [place] [address] Jun, [facility] [address] [facility] [id number] [place] [address] Jun, [facility] [address] [id number] [place] [address] Jun, [facility] [address] [id number] [place] [address] Jun, [facility] [address] [id number] [place] [address] May, [facility] [address] [id number] [facility] [address] May, [facility] [address] [facility] [id number] [facility] [address] May, [facility] [address] [id number] [facility] [place] [address] May, [facility] [address] [id number] [facility] [address] May, [facility] [address] [facility] [id number] [facility] [place] [address] May, [facility] [address] [id number] [facility] [place] [address] May, [facility] [address] [id number] [facility] [address] May, [facility] [address] [id number] [place] [address] May, [facility] [address] [id number] [facility] [address] Apr, [facility] [address] [id number] [place] [address] Apr, [facility] [facility] [address] [id number] [place] [address] Apr, [facility] [address] [id number] [place] [address] Apr, [facility] [address] [facility] [id number] [facility] [address] Apr, [facility] [address] [id number] [place] [address] Apr, [facility] [address] [id number] [place] [address] Apr, [facility] [address] [id number] [place] [address] March, [facility] [address] [id number] [facility] [address] 26 Feb, 2013 [facility] [address] [facility] [id number] [place] [address] 25 Feb, 2013 [facility] [address] [id number] [place] [address] 12 Feb, 2013 [facility] [address] [id number] [place] [address] 28 Jan, 2013 [facility] [address] [id number] [place] [address] Jan, [facility] [address] [id number] [place] [address] 19 Jan, 2013 [facility] [address] [id number] [place] [address] 14 Jan, 2013 [facility] [address] [id number] [place] [address] Jan, [facility] [address] [id number] [place] [address] 08 Jan, 2013 [facility] [address] [id number] [place] [address] 07 Jan, 2013 [facility] [address] [id number] [place] [address] 04 Jan, 2013 [facility] [address] [id number] [place] [address] 28 Dec, 2012 [facility] [address] [id number] [place] [address] Dec, [facility] [address] [id number] [place] [address] 13 Dec, 2012 [facility] [address] [id number] [place] [address] 11 Dec, 2012 [facility] [address] [id number] [place] [address] 07 Dec, 2012 [facility] [address] [id number] [place] [address] 06 Dec, 2012 [facility] [address] [id number] [place] [address] Dec, [facility] [address] [id number] [place] [address] Nov, [facility] [address] [id number] [place] [address] Nov, [facility] [address] [id number] [place] [address] Nov, [facility] [address] [id number] [place] [address] Nov, [facility] [address] [id number] [place] [address] Nov, [facility] [address] [id number] [place] [address] Nov, [facility] [address] [id number] [place] [address] Nov, [facility] [address] [id number] [place] [address] Oct, [facility] [address] [id number] [place] [address] Oct, [facility] [address] [id number] [place] [address] Oct, [facility] [address] [id number] [place] [address] Oct, [facility] [address] [id number] [place] [address] Oct, [facility] [address] [id number] [place] [address] Oct, [facility] [address] [id number] [place] [address] Oct, [facility] [address] [id number] [place] [address] Oct, [facility] [address] [id number] [place] [address] Oct, [facility] [address] [id number] [place] [address] Oct, [facility] [address] [id number] [place] [address] Oct, [facility] [address] [id number] [place] [address] Oct, [facility] [address] [id number] [place] [address] Sep, [facility] [address] [id number] [place] [address] Sep, [facility] [address] [id number] [place] [address] Sep, [facility] [id number] [place] [address] Sep, [facility] [id number] [place] [address] Sep, [facility] [address] [id number] [place] [address] Sep, [facility] [address] [id number] [place] [address] Sep, [facility] [address] [id number] [place] [address] Sep, [facility] [address] [id number] [place] [address] Sep, [facility] [address] [id number] [place] [address] Sep, [facility] [id number] [place] [address] Sep, [facility] [address] [id number] [place] [address] Aug, [facility] [address] [id number] [place] [address] Aug, [facility] [address] [facility] [id number] [place] [address] Aug, [facility] [address] [id number] [place] [address] Aug, [facility] [address] [id number] [place] [address] Aug, [facility] [address] [id number] [place] [address] Aug, [facility] [address] [id number] [place] [address] Aug, [facility] [address] [id number] [place] [address] Aug, [facility] [address] [id number] [place] [address] Aug, [facility] [address] [id number] [place] [address] Aug, [facility] [address] [id number] [place] [address] 22 Jul, 2012 [facility] [address] [id number] [place] [address] 20 Jul, 2012 [facility] [address] [id number] [place] [address] 10 Jul, 2012 [facility] [address] [id number] [place] [address] 06 Jul, 2012 [facility] [address] [id number] [place] [address] 30 Jun, 2012 [facility] [address] [id number] [place] [address] Jun, [facility] [address] [id number] [place] [address] 16 Jun, 2012 [facility] [address] [id number] [place] [address] 10 Jun, 2012 [facility] [address] [id number] [place] [address] Jun, [facility] [address] [id number] [facility] [address] Jun, [facility] [address] [facility] [id number] [facility] [place] [address] Jun, [facility] [address] [id number] [facility] [address] May, [facility] [address] [id number] [facility] [address] May, [facility] [address] [facility] [id number] [facility] [place] [address] May, [facility] [address] [id number] [facility] [address] May, [facility] [address] [id number] [place] [address] May, [facility] [address] [id number] [place] [address] Apr, [facility] [address] [id number] [place] [address] Apr, [facility] [address] [id number] [place] [address] Apr, [facility] [address] [id number] [place] [address] Apr, [facility] [address] [id number] [place] [address] Apr, [facility] [address] [id number] [place] [address] March, [facility] [address] [id number] [place] [address] March, [facility] [address] [id number] [place] [address] March, [facility] [address] [id number] [place] [address] March, [facility] [address] [id number] [place] [address] March, [facility] [address] [id number] [place] [address] March, [facility] [address] [id number] [place] [address] March, [facility] [address] [id number] [place] [address] March, [facility] [address] [id number] [place] [address] March, [facility] [address] [id number] [place] [address] March, [facility] [address] [id number] [place] [address] Feb, [facility] [address] [id number] [place] [address] Feb, [facility] [address] [id number] [place] [address] Feb, [facility] [address] [id number] [place] [address] Feb, [facility] [address] [id number] [place] [address] Feb, [facility] [address] [id number] [place] [address] Feb, [facility] [address] [id number] [place] [address] Feb, [facility] [address] [id number] [place] [address] Feb, [facility] [address] [id number] [place] [address] Feb, [facility] [address] [id number] [place] [address] Jan, [facility] [address] [id number] [place] [address] Jan, [facility] [address] [id number] [place] [address] Jan, [facility] [address] [id number] [place] [address] Jan, [facility] [address] [id number] [place] [address] Dec, [facility] [address] [id number] [place] [address] Dec, [facility] [address] [id number] [place] [address] Nov, [facility] [address] [id number] [place] [address] Nov, [facility] [address] [id number] [place] [address] Nov, [facility] [id number] [place] [address] Nov, [facility] [address] [id number] [place] [address] Nov, [facility] [address] [id number] [place] [address] Oct, [facility] [address] [id number] [place] [address] Oct, [facility] [address] [id number] [place] [address] Oct, [facility] [address] [id number] [place] [address] Oct, [facility] [address] [id number] [place] [address] Oct, [facility] [address] [id number] [place] [address] Oct, [facility] [address] [id number] [place] [address] Oct, [facility] [address] [id number] [place] [address] Oct, [facility] [address] [facility] [id number] [place] [address] Sep, IMMUNIZATIONS No Known Immunizations SOCIAL HISTORY [...] No Surgical history information Hospitalization History [facility]- Urosepsis, ab d pain and fever, discharged 11/27/2017 11/26/2017 Hospitalization History [facility] [address]- Went Unrepsonsive, Hit head 2017 Hospitalization History [facility] [place]- Back Pain 8
--- OUTSIDE RECORDS SUMMARY | 2020-06-18 14:52 | XMS REPORT ---
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 Name Role Phone Laura MARIA DE JESUS Unavailable PROBLEMS Type Condition ICD9-CM Code XWQ08-CU Code Onset Dates Condition S tatus SNOMED Code Problem Hypertension I10 Active 1981909 3 Problem Hyperlipidemia E78.5 Active 26309 004 Problem Coronary artery disease I25.10 Active 11337649 Problem Low back pain M54.5 Active 291845 009 Problem Other chronic pain G89.29 Active 8 9973793 Problem Ventral hernia without obstruction or gangrene K43 .9 Active 559416963 Problem Type 2 diabetes mellitus wit hout complication, without long-term current use of insulin E11.9 Active 630013216 Problem Anxiety F41.9 Active 68378878 Problem Peripheral vascular disease I73.9 Ac tive 135233387 Problem Insomnia G47.00 Active 291274592 Problem Microcytic anemia D50.9 Active 23 9865363 Problem Pharyngeal dysphagia R13.13 Active 32882762335014 Problem Other iron deficiency anemia D50.8 A ctive 32788376 Problem Reactive depression F32.9 Active 99833569 Problem Paroxysmal atrial fibrillation I48.0 Active 356043916 Problem 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 Active 93366159 Problem Encounter for suprapubic catheter care Z43.5 Active 814285585 Problem Neurogenic bladder N31.9 Active 3 [id number] ALLERGIES No Information ENCOUNTERS Encounter Location Date Diagnosis [facility] [id number] [place] [address] Jan, Via [facility], [place] [address] [place] [id number] Jan, Neurogenic bladder N31.9 [facility] [id number] [place] [address] Dec, [place] [address] [address] Dec, [place] [address] [place] [address] 24 Dec, 2019 Anxiety F41.9 and Strain of right should er, subsequent encounter S46.911D [place] [address] [address] 10 Dec, 2019 Other iron deficiency anemia D50.8 [place] [address] [address] 04 Dec, 2019 Via [facility] [address] [place] [id number] Dec, Encounter for suprapubic catheter care Z 43.5 and Microcytic anemia D50.[address] [address] Dec, [place] [address] [address] Nov, Anxiety F41.9 and Strain of right should er, subsequent encounter S46.911D [address] [address] Nov, Hypertension I10 Via [facility] [address] [place] [id number] Nov, Pneumonia of both lungs due to infectiou s organism, unspecified part of lung J18.9 and Suprapubic catheter Z93.59 [place] [address] [address] Nov, Hypertension I10 and Reactive depression F32.[address] [address] Oct, Strain of right shoulder, subsequent enc ounter S46.911D and Anxiety F41.[address] [address] Oct, Via [facility] [address] [place] [id number] Oct, Suprapubic catheter Z93.59 and Candidias is, intertriginous B37.2 [facility] [address] [id number] [place] [address] Oct, Suprapubic catheter Z93.59 [facility] [address] [id number] [place] [address] Oct, Anxiety F41.9 and Strain of right should er, subsequent encounter S46.911D [facility] [address] [id number] [place] [address] Sep, [facility] [address] [id number] [place] [address] Sep, [facility] [address] [id number] [place] [address] Sep, Via [facility] [address] [place] [id number] Sep, Suprapubic catheter Z93.59 [facility] [address] [id number] [place] [address] Sep, Anxiety F41.9 and Strain of right should er, subsequent encounter S46.911D [facility] [address] [id number] [place] [address] Aug, [facility] [address] [id number] [place] [address] Aug, [facility] [address] [id number] [place] [address] Aug, Anxiety F41.9 and Strain of right should er, subsequent encounter S46.911D Via [facility] [address] [place] [id number] Aug, Suprapubic catheter Z93.59 [facility] [address] [id number] [place] [address] Jul, Strain of right shoulder, subsequent enc ounter S46.911D and Anxiety F41.9 [place] [address] [place] [id number] [place] [address] Jul, Anxiety F41.9 [facility] [address] [place] [address] [id number] [place] [address] Jun, [facility] [address] [place] [address] [id number] [place] [address] Jun, [place] [address] [place] [address] Jun, [place] [address] [address] Jun, Strain of right shoulder, subsequent enc ounter S46.911D [place] [address] [address] Jun, Strain of right shoulder, subsequent enc ounter S46.911D [place] [address] [address] Jun, Anxiety F41.9 Via [facility] [address] [place] [id number] Jun, Neurogenic bladder N31.9 and Anxiety F41 .9 Via [facility] [address] [place] [id number] May, Anxiety F41.9 [place] [address] [place] [address] [place] [address] May, Dysuria R30.0 [place] [address] [place] [address] [place] [address] May, Strain of right shoulder, subsequent enc ounter S46.911D and Anxiety F41.9 [place] [address] [address] Apr, Via [facility] [address] [place] [id number] Apr, Strain of right shoulder, subsequent enc ounter S46.911D [place] [address] [place] [address] [place] [address] 14 Apr, 2019 Strain of right shoulder, subsequent enc ounter S46.911D and Anxiety F41.9 Via [facility] [address] [place] [id number] 13 Apr, 2019 Type 2 diabetes mellitus without complic ation, without long-term current use of insulin E11.9 and Neurogenic bladder N31.9 Via [facility] [address] [place] [id number] 11 Apr, 2019 Strain of right shoulder, subsequent enc ounter S46.911D ; History of GI bleed Z87.19 ; Neurogenic bladder N31.9 and Reactive depression F32.9 [place] [address] [address] 10 Apr, 2019 Acute pain of left shoulder M25.512 [place] [address] [address] 07 Apr, 2019 [place] [address] [address] Apr, Anxiety F41.9 and Other chronic pain G89 .29 Via [facility] [address] [place] [id number] March, Gastrointestinal hemorrhage associated w ith acute gastritis K29.01 [place] [address] [address] March, Via [facility] [address] [place] [id number] March, Bronchitis J40 [place] [address] [address] March, Cough R05 [place] [address] [address] March, Other chronic pain G89.29 [place] [address] [address] March, Anxiety F41.9 [place] [address] [address] March, [place] [address] [address] Feb, Other chronic pain G89.29 [facility] [address] [address] Feb, Anxiety F41.9 [facility] [address] [address] Feb, Other chronic pain G89.29 Via [facility] [address] [place] [id number] Feb, Neurogenic bladder N31.9 and Suprapubic catheter Z93.59 [facility] [address] [address] Jan, Anxiety F41.9 [facility] [address] [address] Dec, Anxiety F41.9 [facility] [address] [address] Dec, Other chronic pain G89.29 and Anxiety F4 1.9 [facility] [address] [address] Dec, Via [email or web address] [address] [place] [id number] Dec, Neurogenic bladder N31.9 and Suprapubic catheter Z93.59 [facility] [address] [address] Nov, Other chronic pain G89.29 and Anxiety F4 1.9 [facility] [address] [address] Nov, Via [email or web address] [address] [place] [id number] Nov, Suprapubic catheter Z93.59 [facility] [address] [address] Oct, Other chronic pain G89.29 and Anxiety F4 1.9 [facility] [address] [place] [address] [place] [address] Oct, [facility] [address] [place] [id number] [place] [address] Oct, Suprapubic catheter Z93.59 [facility] [address] [place] [id number] [place] [address] Oct, [facility] [address] [place] [id number] Oct, [facility] [address] [place] [id number] [place] [address] Oct, Anxiety F41.9 [place] [address] [address] Oct, Anxiety F41.9 Via [facility] [address] [place] [id number] Oct, Other chronic pain G89.29 [place] [address] [place] [id number] [place] [address] 14 Sep, 2018 Other chronic pain G89.29 Via [facility] [address] [place] [id number] Sep, Suprapubic catheter Z93.59 and Cervicalg ia M54.2 [facility] [address] [place] [id number] [place] [address] Sep, [facility] [address] [place] [id number] [place] [address] Sep, [facility] [address] [place] [address] [id number] [place] [address] Sep, Via [facility] [address] [place] [id number] Aug, Cystitis N30.90 [facility] [address] [place] [id number] [place] [address] Aug, [facility] [address] [place] [id number] [place] [address] Aug, Other chronic pain G89.29 [facility] [address] [place] [address] [place] [address] Aug, Via [facility] [address] [place] [id number] Aug, Encounter for suprapubic catheter care Z 43.5 [place] [address] [address] Jul, Via [facility] [address] [place] [id number] Jul, [place] [address] [address] Jul, Other chronic pain G89.29 [place] [address] [address] Jul, [place] [address] [address] Jul, Via [facility] [address] [place] [id number] Jun, 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 [place] [address] [address] Jun, Other chronic pain G89.29 [place] [address] [address] Jun, Via [facility] [address] [place] [id number] May, Anxiety F41.9 ; Type 2 diabetes mellitus without complication, without long-term current use of insulin E11.9 ; Hypertension I10 ; Low back pain M54.5 ; Paroxysmal atrial fibrillation I48.0 and 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 [place] [address] [address] May, Other chronic pain G89.29 [facility] [address] [place] [id number] May, Low back pain M54.5 [place] [address] [address] May, [facility] [address] [place] [address] [place] [address] Apr, Other chronic pain G89.29 [facility] [address] [address] Apr, [facility] [address] [address] Apr, [facility] [address] [place] [id number] Apr, Closed compression fracture of L3 lumbar vertebra with routine healing, subsequent encounter S32.030D Via [facility] [address] [place] [id number] Apr, Low back pain M54.5 [facility] [address] [place] [id number] Apr, Coccydynia M53.3 [facility] [address] [address] March, [facility] [address] [address] March, Other chronic pain G89.29 [facility] [address] [address] March, [facility] [address] [address] March, [facility] [address] [address] Feb, [facility] [address] [address] Feb, Other chronic pain G89.29 Via [facility] [address] [place] [id number] Feb, Other chronic pain G89.29 and Anxiety F4 1.9 [facility] [address] [address] Feb, [facility] [address] [address] Jan, [place] [address] [place] [id number] [place] [address] Jan, [facility] [address] [address] Jan, [place] [address] [address] Jan, [place] [address] [address] Dec, Via [facility] [address] [place] [id number] Dec, Peripheral vascular disease I73.9 ; 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 ; Other chronic pain G89.29 ; Anxiety F41.9 ; Reactive depression F32.9 ; Insomnia G47.00 and Type 2 diabetes mellitus without complication, without long-term current use of insulin E11.9 [facility] [place] [address] [id number] [place] [address] Nov, [place] [address] [id number] [place] [id number] Nov, Anxiety F41.9 [place] [address] [address] Nov, [place] [address] [id number] [place] [id number] Nov, Anxiety F41.9 Via [facility] [address] [place] [id number] Nov, Status post surgery Z98.890 ; Confused R 41.0 ; Anxiety F41.9 and Other chronic pain G89.29 [place] [address] [id number] [place] [id number] Nov, Other chronic pain G89.29 [place] [address] [place] [address] [place] [address] Oct, [place] [address] [id number] [place] [id number] Oct, Other chronic pain G89.29 [facility] [address] [address] Oct, Anxiety F41.9 [facility] [address] [id number] [place] [id number] Sep, Other chronic pain G89.29 [facility] [address] [id number] [place] [id number] Sep, Via [facility] [address] [place] [id number] Aug, Dysuria R30.0 and Anxiety F41.9 [place] [address] [address] Aug, [place] [address] [id number] [place] [id number] Aug, Other chronic pain G89.29 [place] [address] [address] Jul, Other chronic pain G89.29 [facility] [address] [id number] [place] [id number] Jun, [place] [address] [id number] [place] [id number] Jun, Other chronic pain G89.29 [place] [address] [address] Jun, [place] [address] [address] May, Other chronic pain G89.29 [place] [address] [address] Apr, Other chronic pain G89.29 [facility] [address] [place] [id number] Apr, Reactive depression F32.9 and Pharyngeal dysphagia R13.13 [place] [address] [address] Apr, Urinary tract infection without hematuri a, site unspecified N39.0 [facility] [address] [address] March, Other chronic pain G89.29 [facility] [address] [address] Feb, Other chronic pain G89.29 [facility] [address] [address] Feb, [facility] [address] [id number] [facility] [facility] [place] [place] [id number] Feb, Via [facility] [address] [place] [id number] Feb, Dysuria R30.0 and Ventral hernia without obstruction or gangrene K43.9 [place] [address] [address] Jan, Other chronic pain G89.29 [place] [address] [id number] [place] [id number] Dec, Other chronic pain G89.29 [place] [address] [address] Nov, Other chronic pain G89.29 Via [facility] [address] [place] [address] Nov, Lymphadenitis I88.9 [facility] [address] [address] Nov, Other chronic pain G89.29 [facility] [address] [address] Nov, [place] [address] [id number] [place] [id number] Nov, Other chronic pain G89.29 Via [facility] [address] [place] [id number] Oct, Low back pain M54.5 ; Hypertension I10 a nd Type 2 diabetes mellitus without complication, without long-term current use of insulin E11.9 [facility] [address] [address] Oct, [facility] [address] [address] Oct, [facility] [address] [address] Oct, [facility] [address] [address] Oct, [facility] [address] [address] Sep, [facility] [address] [address] Sep, [facility] [address] [address] Aug, Other chronic pain G89.29 [facility] [address] [address] Jul, [facility] [address] [address] Jul, [facility] [address] [address] Jul, [facility] [address] [address] Jun, [facility] [address] [address] Jun, Via [facility] [place] [address] [place] [id number] Jun, Low back pain M54.5 ; Other chronic pain G89.29 and Coronary artery disease I25.10 [facility] [address] [address] Jun, [facility] [address] [address] May, [facility] [address] [id number] [place] [address] 15 May, 2016 [facility] [id number] [place] [address] May, Other chronic pain G89.29 [facility] [id number] [place] [address] 13 May, 2016 [facility] [address] [id number] [place] [address] Apr, [facility] [id number] [place] [address] 17 Apr, 2016 Acute cystitis without hematuria N30.00 [facility] [id number] [place] [address] 16 Apr, 2016 Acute cystitis without hematuria N30.00 ; Coronary artery disease I25.10 ; Low back pain M54.5 and Other chronic pain G89.29 [facility] [id number] [place] [address] Apr, Other chronic pain G89.29 [facility] [id number] [place] [address] March, Other chronic pain G89.29 [facility] [id number] [place] [address] 18 Feb, 2016 [facility] [id number] [place] [address] 15 Feb, 2016 Arthritis M19.90 [facility] [id number] [place] [address] Feb, [facility] [address] [facility] [address] [id number] [place] [address] 30 Jan, 2016 [facility] [id number] [place] [address] Jan, [facility] [address] [facility] [id number] [place] [address] Jan, Other chronic pain G89.29 [facility] [id number] [place] [address] Jan, Hypertension I10 ; Coronary artery disea se I25.10 and Insomnia G47.00 [facility] [address] [address] Jan, [facility] [address] [address] Dec, Right hip pain M25.551 [facility] [address] [address] Dec, [facility] [address] [address] Dec, [facility] [address] [address] Dec, [facility] [address] [address] Dec, Other chronic pain G89.29 [facility] [address] [address] Dec, [facility] [address] [address] Nov, [facility] [address] [address] Nov, Other chronic pain G89.29 [facility] [address] [address] Nov, Right hip pain M25.551 and Coronary karissa ry disease I25.10 [facility] [address] [address] Nov, Other chronic pain G89.29 [facility] [address] [address] Oct, [facility] [address] [address] Oct, [facility] [address] [address] Sep, [facility] [id number] [place] [address] Sep, [facility] [id number] [place] [address] Aug, [facility] [id number] [place] [address] Aug, Hypertension I10 ; Coronary artery disea se I25.10 and Arthritis M19.90 [facility] [id number] [place] [address] Jun, [facility] [address] [address] Jun, Essential hypertension, benign 401.1 ; O ther chronic pain 338.29 and Chronic airway obstruction, not elsewhere classified 496 [facility] [address] [address] Jun, [facility] [id number] [place] [address] Jun, [facility] [id number] [place] [address] Jun, [facility] [id number] [place] [address] May, [facility] [id number] [place] [address] May, [facility] [id number] [place] [address] Apr, [facility] [id number] [place] [address] Apr, [facility] [id number] [place] [address] Apr, [facility] [id number] [place] [address] March, [facility] [id number] [place] [address] March, [facility] [address] [facility] [place] [id number] [place] [address] March, [facility] [address] [id number] [place] [address] March, [facility] [address] [id number] [place] [address] March, Sialadenitis 527.2 [facility] [address] [address] [id number] [place] [address] Feb, [facility] [address] [facility] [place] [place] [id number] [place] [address] Feb, [facility] [address] [id number] [place] [address] Feb, [facility] [address] [id number] [place] [address] Feb, [facility] [address] [id number] [place] [address] Feb, [facility] [address] [id number] [place] [address] Jan, [facility] [place] [facility] [address] [id number] [place] [address] Jan, [facility] [place] [facility] [address] [id number] [place] [address] Jan, [facility] [place] [facility] [address] [id number] [place] [address] Jan, [facility] [place] [facility] [address] [id number] [place] [address] Jan, [facility] [place] [facility] [address] [id number] [place] [address] Jan, [facility] [place] [facility] [address] [id number] [place] [address] Dec, [facility] [place] [facility] [address] [id number] [place] [address] Dec, [facility] [place] [facility] [address] [id number] [place] [address] 10 Dec, 2014 [facility] [place] [facility] [address] [facility] [place]] [id number] [place] [address] Dec, [facility] [place] [facility] [address] [id number] [place] [address] Dec, [facility] [place] [facility] [address] [id number] [place] [address] Dec, [facility] [place] [facility] [address] [id number] [place] [address] Nov, [facility] [place] [facility] [address] [id number] [place] [address] Nov, [facility] [place] [facility] [address] [id number] [place] [address] Nov, [facility] [place] [facility] [address] [id number] [place] [address] Nov, [facility] [place] [facility] [address] [id number] [place] [address] Nov, [facility] [place] [facility] [address] [id number] [place] [address] Nov, [facility] [place] [facility] [address] [id number] [place] [address] Nov, [facility] [place] [facility] [address] [id number] [place] [address] Nov, [facility] [place] [facility] [address] [id number] [place] [address] Nov, [facility] [place] [facility] [address] [id number] [place] [address] Nov, [facility] [place] [facility] [address] [id number] [place] [address] Nov, [facility] [place] [facility] [address] [id number] [place] [address] Nov, [facility] [place] [facility] [address] [id number] [place] [address] Nov, [facility] [place] [facility] [address] [id number] [place] [address] Nov, [facility] [place] [facility] [address] [id number] [place] [address] Oct, [facility] [place] [facility] [address] [id number] [place] [address] Oct, [facility] [place] [facility] [address] [id number] [place] [address] Oct, [facility] [place] [facility] [address] [facility] [place]] [id number] [place] [address] Oct, [facility] [place] [facility] [address] [id number] [place] [address] Oct, [facility] [place] [facility] [address] [id number] [place] [address] Oct, [facility] [place] [facility] [address] [id number] [place] [address] Oct, [facility] [place] [facility] [address] [id number] [place] [address] Oct, [facility] [place] [facility] [address] [id number] [place] [address] Oct, [facility] [place] [facility] [address] [id number] [place] [address] Sep, [facility] [place] [facility] [address] [id number] [place] [address] Sep, [facility] [place] [facility] [address] [id number] [place] [address] Sep, [facility] [place] [facility] [address] [id number] [place] [address] Sep, [facility] [place] [facility] [address] [id number] [place] [address] Sep, [facility] [place] [facility] [address] [id number] [place] [address] Sep, [facility] [place] [facility] [address] [id number] [place] [address] Sep, [facility] [place] [facility] [address] [id number] [place] [address] Sep, [facility] [place] [facility] [address] [id number] [place] [address] Sep, [facility] [place] [facility] [address] [id number] [place] [address] Sep, [facility] [place] [facility] [address] [id number] [place] [address] Sep, [facility] [place] [facility] [address] [id number] [place] [address] Sep, [facility] [place] [facility] [address] [id number] [place] [address] Aug, [facility] [place] [facility] [address] [id number] [place] [address] Aug, [facility] [place] [facility] [address] [id number] [place] [address] Aug, [facility] [place] [facility] [address] [id number] [place] [address] Aug, [facility] [place] [facility] [address] [id number] [place] [address] Aug, [facility] [place] [facility] [address] [id number] [place] [address] Aug, [facility] [place] [facility] [address] [id number] [place] [address] Aug, [facility] [place] [facility] [address] [id number] [place] [address] Aug, [facility] [place] [facility] [address] [id number] [place] [address] 30 Jul, 2014 [facility] [place] [facility] [address] [id number] [place] [address] 30 Jul, 2014 [facility] [place] [facility] [address] [id number] [place] [address] 30 Jul, 2014 [facility] [place] [facility] [address] [id number] [place] [address] 30 Jul, 2013 [facility] [place] [facility] [address] [id number] [place] [address] 25 Jul, 2014 [facility] [place] [facility] [address] [id number] [place] [address] 25 Jul, 2013 [facility] [place] [facility] [address] [id number] [place] [address] 15 Jul, 2013 [facility] [place] [facility] [address] [facility] [place]] [id number] [place] [address] 15 Jul, 2013 [facility] [place] [facility] [address] [id number] [place] [address] Jul, [facility] [place] [facility] [address] [id number] [place] [address] Jul, [facility] [place] [facility] [address] [id number] [place] [address] Jun, [facility] [place] [facility] [address] [id number] [place] [address] Jun, [facility] [place] [facility] [address] [id number] [place] [address] Jun, [facility] [place] [facility] [address] [id number] [place] [address] Jun, [facility] [place] [facility] [address] [id number] [place] [address] Jun, [facility] [place] [facility] [address] [id number] [place] [address] Jun, [facility] [place] [facility] [address] [id number] [place] [address] Jun, [facility] [place] [facility] [address] [id number] [place] [address] Jun, [facility] [place] [facility] [address] [id number] [place] [address] Jun, [facility] [place] [facility] [address] [id number] [place] [address] Jun, [facility] [place] [facility] [address] [id number] [facility] [place] [address] Jun, [facility] [place] [facility] [address] [facility] [place] 2] [id number] [place] [address] Jun, [facility] [place] [facility] [address] [facility] [place] 2] [id number] [facility] [place] [address] Jun, [facility] [place] [facility] [address] [id number] [place] [address] Jun, [facility] [place] [facility] [address] [facility] [place]NOTE 2] [id number] [place] [address] Jun, [facility] [place] [facility] [address] [id number] [place] [address] Jun, [facility] [place] [facility] [address] [facility] [place] 2] [id number] [facility] [place] [address] Jun, [facility] [place] [facility] [address] [id number] [facility] [place] [address] Jun, [facility] [place] [facility] [address] [facility] [place] 2] [id number] [place] [address] Jun, [facility] [place] [facility] [address] [id number] [facility] [place] [address] Jun, [facility] [place] [facility] [address] [facility] [place] 2] [id number] [facility] [place] [address] Jun, [facility] [place] [facility] [address] [id number] [facility] [place] [address] Jun, [facility] [place] [facility] [address] [id number] [facility] [place] [address] May, [facility] [place] [facility] [address] [id number] [facility] [place] [address] May, [facility] [place] [facility] [address] [facility] [place] 2] [id number] [facility] [place] [address] May, [facility] [place] [facility] [address] [facility] [place]NOTE 2] [id number] [facility] [place] [address] May, [facility] [place] [facility] [address] [facility] [place] 2] [id number] [facility] [place] [address] May, 2013 [facility] [place] [facility] [address] [id number] [facility] [place] [address] May, 2013 [facility] [place] [facility] [address] [facility] [place] 2] [id number] [place] [address] May, 2013 [facility] [place] [facility] [address] [id number] [facility] [place] [address] May, 2013 [facility] [place] [facility] [address] [facility] [place] 2] [id number] [place] [address] May, 2013 [facility] [place] [facility] [address] [facility] [place] 2] [id number] [facility] [place] [address] May, [facility] [place] [facility] [address] [id number] [place] [address] May, 2013 [facility] [place] [facility] [address] [id number] [place] [address] May, [facility] [place] [facility] [address] [id number] [place] [address] May, 2013 [facility] [place] [facility] [address] [facility] [place] 2] [id number] [place] [address] Apr, [facility] [place] [facility] [address] [id number] [place] [address] Apr, [facility] [place] [facility] [address] [id number] [place] [address] Apr, [facility] [place] [facility] [address] [id number] [place] [address] Apr, [facility] [place] [facility] [address] [facility] [place] 2] [id number] [place] [address] Apr, [facility] [place] [facility] [address] [id number] [place] [address] Apr, [facility] [place] [facility] [address] [facility] 2] [id number] [place] [address] Apr, [facility] [place] [facility] [address] [id number] [place] [address] Apr, [facility] [place] [facility] [address] [id number] [place] [address] Apr, [facility] [place] [facility] [address] [id number] [place] [address] March, [facility] [place] [facility] [address] [id number] [place] [address] March, [facility] [place] [facility] [address] [id number] [place] [address] March, [facility] [place] [facility] [address] [id number] [place] [address] March, [facility] [place] [facility] [address] [id number] [place] [address] March, [facility] [place] [facility] [address] [id number] [place] [address] March, [facility] [place] [facility] [address] [id number] [place] [address] March, [facility] [place] [facility] [address] [id number] [place] [address] March, [facility] [place] [facility] [address] [id number] [place] [address] March, [facility] [place] [facility] [address] [id number] [place] [address] March, [facility] [place] [facility] [address] [id number] [place] [address] March, [facility] [place] [facility] [address] [id number] [place] [address] March, [facility] [place] [facility] [address] [id number] [place] [address] March, [facility] [place] [facility] [address] [id number] [place] [address] March, [facility] [place] [facility] [address] [id number] [place] [address] March, [facility] [place] [facility] [address] [id number] [place] [address] March, [facility] [place] [facility] [address] [facility] [place]] [id number] [facility] [place] [address] March, [facility] [place] [facility] [address] [id number] [facility] [place] [address] March, [facility] [place] [facility] [address] [id number] [place] [address] March, [facility] [place] [facility] [address] [id number] [facility] [place] [address] March, [facility] [place] [facility] [address] [facility] [place]] [id number] [facility] [place] [address] Feb, [facility] [place] [facility] [address] [id number] [place] [address] Feb, [facility] [place] [facility] [address] [id number] [place] [address] Feb, [facility] [place] [facility] [address] [id number] [place] [address] Feb, [facility] [place] [facility] [address] [id number] [facility] [place] [address] Feb, [facility] [place] [facility] [address] [id number] [place] [address] Feb, [facility] [place] [facility] [address] [id number] [place] [address] Feb, [facility] [place] [facility] [address] [id number] [place] [address] Feb, [facility] [place] [facility] [address] [id number] [facility] [place] [address] Jan, [facility] [place] [facility] [address] [id number] [place] [address] Jan, [facility] [place] [facility] [address] [id number] [place] [address] Jan, [facility] [place] [facility] [address] [id number] [place] [address] Jan, [facility] [place] [facility] [address] [id number] [place] [address] 13 Jan, 2014 [facility] [place] [facility] [address] [facility] [place]] [id number] [facility] [place] [address] Jan, [facility] [place] [facility] [address] [facility] [place] 2] [id number] [place] [address] Jan, [facility] [place] [facility] [address] [id number] [place] [address] Jan, [facility] [place] [facility] [address] [facility] 2] [id number] [place] [address] Jan, [facility] [place] [facility] [address] [facility] [place] 2] [id number] [facility] [place] [address] Jan, [facility] [place] [facility] [address] [id number] [place] [address] Dec, [facility] [place] [facility] [address] [id number] [place] [address] Dec, [facility] [place] [facility] [address] [id number] [place] [address] Dec, [facility] [place] [facility] [address] [id number] [place] [address] Dec, [facility] [place] [facility] [address] [id number] [place] [address] Dec, [facility] [place] [facility] [address] [id number] [place] [address] Dec, [facility] [place] [facility] [address] [id number] [place] [address] Dec, [facility] [place] [facility] [address] [facility] 2] [id number] [place] [address] Dec, [facility] [place] [facility] [address] [id number] [place] [address] Nov, [facility] [place] [facility] [address] [id number] [place] [address] Nov, [facility] [place] [facility] [address] [id number] [place] [address] Nov, [facility] [place] [facility] [address] [id number] [place] [address] Nov, [facility] [place] [facility] [address] [id number] [place] [address] Nov, [facility] [place] [facility] [address] [id number] [place] [address] Nov, [facility] [place] [facility] [address] [id number] [place] [address] Nov, [facility] [place] [facility] [address] [facility]] [id number] [place] [address] Nov, [facility] [place] [facility] [address] [id number] [place] [address] Nov, [facility] [place] [facility] [address] [id number] [place] [address] Nov, [facility] [place] [facility] [address] [id number] [place] [address] Nov, [facility] [place] [facility] [address] [id number] [place] [address] Nov, [facility] [place] [facility] [address] [id number] [place] [address] Nov, [facility] [place] [facility] [address] [id number] [place] [address] Oct, [facility] [place] [facility] [address] [facility] [id number] [place] [address] Oct, [facility] [address] [facility] [id number] [place] [address] Oct, [facility] [address] [facility] [id number] [place] [address] Oct, [facility] [address] [facility] [id number] [place] [address] Oct, [facility] [address] [facility] [id number] [place] [address] Oct, [facility] [address] [facility] [id number] [place] [address] 18 Oct, 2012 [facility] [address] [facility] [id number] [place] [address] 18 Oct, 2012 [facility] [address] [facility] [id number] [place] [address] 17 Oct, 2013 [facility] [address] [facility] [id number] [place] [address] 17 Oct, 2013 [facility] [address] [facility] [id number] [place] [address] Oct, [facility] [address] [facility] [id number] [place] [address] Oct, [facility] [address] [facility] [id number] [place] [address] 02 Oct, 2013 [facility] [address] [facility] [id number] [place] [address] 02 Oct, 2013 [facility] [address] [facility] [id number] [place] [address] 14 Sep, 2013 [facility] [address] [facility] [id number] [place] [address] 14 Sep, 2013 [facility] [address] [facility] [id number] [place] [address] Sep, [facility] [address] [facility] [id number] [place] [address] 05 Sep, 2013 [facility] [address] [facility] [id number] [place] [address] Sep, [facility] [address] [facility] [id number] [place] [address] Sep, [facility] [id number] [place] [address] Sep, [facility] [address] [facility] [id number] [place] [address] Sep, [facility] [address] [facility] [id number] [place] [address] Sep, [facility] [address] [facility] [place] [id number] [place] [address] Sep, [facility] [address] [facility] [place] [id number] [place] [address] 24 Aug, 2012 [facility] [address] [facility] [id number] [place] [address] 24 Aug, 2013 [facility] [address] [facility] [id number] [place] [address] 24 Aug, 2012 [facility] [address] [facility] [id number] [place] [address] 24 Aug, 2013 [facility] [address] [facility] [id number] [place] [address] Aug, 2012 [facility] [address] [facility] [id number] [place] [address] Aug, [facility] [address] [facility] [id number] [place] [address] Aug, 2012 [facility] [address] [facility] [id number] [place] [address] Aug, 2012 [facility] [address] [facility] [id number] [place] [address] Aug, [facility] [address] [facility] [id number] [place] [address] 22 Aug, 2013 [facility] [address] [facility] [id number] [place] [address] 18 Aug, 2013 [facility] [address] [facility] [id number] [place] [address] 18 Aug, 2012 [facility] [address] [facility] [place] [id number] [place] [address] 18 Aug, 2012 [facility] [address] [facility] [id number] [place] [address] 18 Aug, 2012 [facility] [address] [facility] [id number] [place] [address] 17 Aug, 2012 [facility] [address] [facility] [id number] [place] [address] 14 Aug, 2013 [facility] [address] [id number] [place] [address] 14 Aug, 2013 [facility] [address] [facility] [place]] [id number] [place] [address] 01 Aug, 2013 [facility] [address] [facility] [place]] [id number] [place] [address] 20 Jul, 2012 [facility] [address] [facility] [id number] [place] [address] 19 Jul, 2012 [facility] [address] [facility] [place]] [id number] [place] [address] 18 Jul, 2013 [facility] [address] [facility] [id number] [place] [address] 11 Jul, 2013 [facility] [address] [facility] [id number] [place] [address] Jul, [facility] [address] [facility] [id number] [place] [address] 28 Jun, 2013 [facility] [address] [facility] [id number] [place] [address] Jun, [facility] [address] [facility] [id number] [place] [address] Jun, [facility] [address] [facility] [id number] [place] [address] 15 Jun, 2013 [facility] [address] [facility] [id number] [place] [address] 14 Jun, 2013 [facility] [address] [facility] [id number] [place] [address] Jun, [facility] [address] [id number] [place] [address] Jun, [facility] [address] [facility] [id number] [place] [address] 08 Jun, 2013 [facility] [address] [facility] [id number] [place] [address] 04 Jun, 2013 [facility] [address] [id number] [facility] [place] [address] Jun, [facility] [address] [id number] [facility] [place] [address] May, [facility] [address] [facility] [place]] [id number] [facility] [place] [address] May, [facility] [address] [id number] [facility] [place] [address] May, [facility] [address] [facility] [place] [id number] [facility] [place] [address] May, [facility] [address] [facility] [place]] [id number] [facility] [place] [address] May, [facility] [address] [id number] [place] [address] May, [facility] [address] [id number] [place] [address] May, [facility] [address] [id number] [place] [address] May, [facility] [address] [facility] [place] 2] [id number] [facility] [place] [address] May, [facility] [address] [id number] [place] [address] Apr, [facility] [address] [id number] [place] [address] Apr, [facility] [address] [id number] [place] [address] Apr, [facility] [address] [facility] [place]] [id number] [facility] [place] [address] Apr, [facility] [address] [id number] [place] [address] Apr, [facility] [address] [id number] [place] [address] Apr, [facility] [address] [id number] [place] [address] Apr, [facility] [address] [id number] [place] [address] March, [facility] [address] [id number] [place] [address] Feb, [facility] [address] [id number] [place] [address] Feb, [facility] [address] [id number] [place] [address] Feb, [facility] [address] [id number] [place] [address] Jan, [facility] [address] [id number] [place] [address] Jan, [facility] [address] [id number] [place] [address] Jan, [facility] [address] [id number] [place] [address] 14 Jan, 2013 [facility] [address] [id number] [place] [address] Jan, [facility] [address] [id number] [place] [address] 08 Jan, 2013 [facility] [address] [id number] [place] [address] 07 Jan, 2013 [facility] [address] [id number] [place] [address] Jan, [facility] [address] [id number] [place] [address] 28 Dec, 2012 [facility] [address] [id number] [place] [address] Dec, [facility] [address] [id number] [place] [address] 13 Dec, 2012 [facility] [address] [id number] [place] [address] 11 Dec, 2012 [facility] [address] [id number] [place] [address] 07 Dec, 2012 [facility] [address] [id number] [place] [address] Dec, [facility] [address] [id number] [place] [address] 05 Dec, 2012 [facility] [address] [id number] [place] [address] Nov, [facility] [address] [id number] [place] [address] 24 Nov, 2012 [facility] [address] [id number] [place] [address] Nov, [facility] [address] [id number] [place] [address] Nov, [facility] [address] [id number] [place] [address] Nov, [facility] [address] [id number] [place] [address] Nov, [facility] [address] [id number] [place] [address] Nov, [facility] [address] [id number] [place] [address] Oct, [facility] [address] [id number] [place] [address] Oct, [facility] [address] [id number] [place] [address] Oct, [facility] [address] [id number] [place] [address] Oct, [facility] [address] [id number] [place] [address] Oct, [facility] [address] [id number] [place] [address] Oct, [facility] [address] [id number] [place] [address] Oct, [facility] [address] [id number] [place] [address] Oct, [facility] [address] [id number] [place] [address] Oct, [facility] [address] [id number] [place] [address] Oct, [facility] [address] [id number] [place] [address] Oct, [facility] [address] [id number] [place] [address] Oct, [facility] [address] [id number] [place] [address] Sep, [facility] [address] [id number] [place] [address] Sep, [facility] [address] [id number] [place] [address] Sep, [facility] [address] [id number] [place] [address] Sep, [facility] [address] [id number] [place] [address] Sep, [facility] [address] [id number] [place] [address] Sep, [facility] [address] [id number] [place] [address] Sep, [facility] [address] [id number] [place] [address] Sep, [facility] [address] [id number] [place] [address] Sep, [facility] [id number] [place] [address] Sep, [facility] [address] [id number] [place] [address] Sep, [facility] [address] [id number] [place] [address] Aug, [facility] [address] [id number] [place] [address] Aug, [facility] [address] [id number] [place] [address] Aug, [facility] [address] [id number] [place] [address] Aug, [facility] [address] [id number] [place] [address] Aug, [facility] [address] [id number] [place] [address] Aug, [facility] [address] [id number] [place] [address] Aug, [facility] [address] [id number] [place] [address] Aug, [facility] [address] [id number] [place] [address] Aug, [facility] [address] [id number] [place] [address] Aug, [facility] [address] [id number] [place] [address] 22 Jul, 2012 [facility] [address] [id number] [place] [address] 20 Jul, 2012 [facility] [address] [id number] [place] [address] 10 Jul, 2012 [facility] [address] [id number] [place] [address] 06 Jul, 2012 [facility] [address] [id number] [place] [address] 30 Jun, 2012 [facility] [address] [id number] [place] [address] Jun, [facility] [address] [id number] [place] [address] 16 Jun, 2012 [facility] [address] [id number] [place] [address] Jun, [facility] [address] [facility] [place] 2] [id number] [facility] [place] [address] Jun, [facility] [address] [id number] [facility] [place] [address] Jun, [facility] [address] [id number] [facility] [place] [address] Jun, [facility] [address] [id number] [facility] [place] [address] May, [facility] [address] [facility] [place]NOTE 2] [id number] [facility] [place] [address] May, [facility] [address] [id number] [place] [address] May, [facility] [address] [id number] [place] [address] May, [facility] [address] [id number] [place] [address] May, [facility] [address] [id number] [place] [address] Apr, [facility] [address] [id number] [place] [address] Apr, [facility] [address] [id number] [place] [address] Apr, [facility] [address] [id number] [place] [address] Apr, [facility] [address] [id number] [place] [address] Apr, [facility] [address] [id number] [place] [address] March, [facility] [address] [id number] [place] [address] March, [facility] [address] [id number] [place] [address] March, [facility] [address] [id number] [place] [address] March, [facility] [address] [id number] [place] [address] March, [facility] [address] [id number] [place] [address] March, [facility] [address] [id number] [place] [address] March, [facility] [address] [id number] [place] [address] March, [facility] [address] [id number] [place] [address] March, [facility] [address] [id number] [place] [address] March, [facility] [address] [id number] [place] [address] 30 Feb, 2012 [facility] [address] [id number] [place] [address] Feb, [facility] [address] [id number] [place] [address] Feb, [facility] [address] [id number] [place] [address] Feb, [facility] [address] [id number] [place] [address] Feb, [facility] [address] [id number] [place] [address] Feb, [facility] [address] [id number] [place] [address] Feb, [facility] [address] [id number] [place] [address] Feb, [facility] [address] [id number] [place] [address] Feb, [facility] [address] [id number] [place] [address] Jan, [facility] [address] [id number] [place] [address] 07 Jan, 2012 [facility] [address] [id number] [place] [address] 05 Jan, 2012 [facility] [address] [id number] [place] [address] Jan, [facility] [address] [id number] [place] [address] Dec, [facility] [address] [id number] [place] [address] Dec, [facility] [address] [id number] [place] [address] Nov, [facility] [address] [id number] [place] [address] Nov, [facility] [id number] [place] [address] Nov, [facility] [address] [id number] [place] [address] Nov, [facility] [address] [id number] [place] [address] Nov, [facility] [address] [id number] [place] [address] Oct, [facility] [address] [id number] [place] [address] Oct, [facility] [address] [id number] [place] [address] Oct, [facility] [address] [id number] [place] [address] Oct, [facility] [address] [id number] [place] [address] Oct, [facility] [address] [id number] [place] [address] Oct, [facility] [address] [id number] [place] [address] Oct, [facility] [address] [facility] [place] 2] [id number] [place] [address] Oct, [facility] [address] [facility] [place]NOTE 2] [id number] [place] [address] Sep, IMMUNIZATIONS No Known Immunizations SOCIAL HISTORY [...] History No Surgical history information Hospitalization History [facility]- Urosepsis, ab d pain and fever, discharged 11/27/2017 11/26/2017 Hospitalization History [facility]- Went Unrepsonsive, Hit head 2017 Hospitalization History [facility]- Back Pain 8
--- OUTSIDE RECORDS SUMMARY | 2020-06-18 14:53 | XMS REPORT ---
Author Author Sanjuanita Abdul Doctor Organization [facility] Address Unknown Phone Unavailable Care Team Providers Care Desktop Manager Name Role Phone Migration, Doctor Unavailable Unavailable PROBLEMS Type Condition ICD9-CM Code TNL63-VV Code Onset Dates Condition S tatus SNOMED Code Problem Hypertension I10 Active 8197582 3 Problem Hyperlipidemia E78.5 Active 82559 004 Problem Coronary artery disease I25.10 Active 21597241 Problem Low back pain M54.5 Active 799896 009 Problem Other chronic pain G89.29 Active 8 6786675 Problem Ventral hernia without obstruction or gangrene K43 .9 Active 299120502 Problem Type 2 diabetes mellitus wit hout complication, without long-term current use of insulin E11.9 Active 025849772 Problem Anxiety F41.9 Active 31190576 Problem Peripheral vascular disease I73.9 Ac tive 628292889 Problem Insomnia G47.00 Active 937936570 Problem Microcytic anemia D50.9 Active 23 2822551 Problem Pharyngeal dysphagia R13.13 Active 90123970692411 Problem Other iron deficiency anemia D50.8 A ctive 72077155 Problem Reactive depression F32.9 Active 89828713 Problem Paroxysmal atrial fibrillation I48.0 Active 695266503 Problem 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 Active 83060655 Problem Encounter for suprapubic catheter care Z43.5 Active 583662935 Problem Neurogenic bladder N31.9 Active 3 21960918 ALLERGIES No Information ENCOUNTERS Encounter Location Date Diagnosis [facility] [address] [place] [id number] Jan, Neurogenic bladder N31.9 [facility] [id number] [place] [address] Dec, [facility] [address] [id number] [place] [address] Dec, [facility] [address] [id number] [place] [address] Dec, Anxiety F41.9 and Strain of right should er, subsequent encounter S46.911D [place] [address] [address] 10 Dec, 2019 Other iron deficiency anemia D50.8 [place] [address] [address] 04 Dec, 2019 [email or web address] [address] [place] [id number] 04 Dec, 2019 Encounter for suprapubic catheter care Z 43.5 and Microcytic anemia D50.9 [place] [address] [address] Dec, [place] [address] [address] Nov, Anxiety F41.9 and Strain of right should er, subsequent encounter S46.911D [place] [address] [address] Nov, Hypertension I10 [email or web address] [address] [place] [id number] Nov, Pneumonia of both lungs due to infectiou s organism, unspecified part of lung J18.9 and Suprapubic catheter Z93.59 [place] [address] [address] Nov, Hypertension I10 and Reactive depression F32.9 [place] [address] [address] Oct, Strain of right shoulder, subsequent enc ounter S46.911D and Anxiety F41.9 [place] [address] [address] Oct, Via [email or web address] [address] [place] [id number] Oct, Suprapubic catheter Z93.59 and Candidias is, intertriginous B37.2 [place] [address] [address] Oct, Suprapubic catheter Z93.59 [facility] [address] [id number] [place] [address] Oct, Anxiety F41.9 and Strain of right should er, subsequent encounter S46.911D [facility] [address] [id number] [place] [address] Sep, [facility] [address] [id number] [place] [address] Sep, [facility] [address] [id number] [place] [address] Sep, [facility] [address] [place] [id number] Sep, Suprapubic catheter Z93.59 [facility] [address] [id number] [place] [address] Sep, Anxiety F41.9 and Strain of right should er, subsequent encounter S46.911D [facility] [address] [id number] [place] [address] Aug, [facility] [address] [id number] [place] [address] Aug, [facility] [address] [id number] [place] [address] Aug, Anxiety F41.9 and Strain of right should er, subsequent encounter S46.911D [facility] [address] [place] [id number] Aug, Suprapubic catheter Z93.59 [facility] [address] [id number] [place] [address] Jul, Strain of right shoulder, subsequent enc ounter S46.911D and Anxiety F41.9 [facility] [address] [id number] [place] [address] Jul, Anxiety F41.9 [facility] [address] [id number] [place] [address] Jun, [place] [id number] [place] [address] Jun, [facility] [id number] [place] [address] Jun, [place] [id number] [place] [address] Jun, Strain of right shoulder, subsequent enc ounter S46.911D [place] [id number] [place] [address] Jun, Strain of right shoulder, subsequent enc ounter S46.911D [place] [address] [address] Jun, Anxiety F41.9 [facility] [address] [place] [id number] Jun, Neurogenic bladder N31.9 and Anxiety F41 .9 Via [facility] [address] [place] [id number] May, Anxiety F41.9 [place] [id number] [place] [address] May, Dysuria R30.0 [place] [id number] [place] [address] May, Strain of right shoulder, subsequent enc ounter S46.911D and Anxiety F41.9 [place] [id number] [place] [address] Apr, Via [facility] [address] [place] [id number] Apr, Strain of right shoulder, subsequent enc ounter S46.911D [place] [id number] [place] [address] Apr, Strain of right shoulder, subsequent enc ounter S46.911D and Anxiety F41.9 [facility] [address] [place] [address] Apr, Type 2 diabetes mellitus without complic ation, without long-term current use of insulin E11.9 and Neurogenic bladder N31.9 [email or web address] [address] [place] [id number] Apr, Strain of right shoulder, subsequent enc ounter S46.911D ; History of GI bleed Z87.19 ; Neurogenic bladder N31.9 and Reactive depression F32.9 [place] [address] [address] 10 Apr, 2019 Acute pain of left shoulder M25.512 [place] [address] [address] Apr, [place] [address] [address] Apr, Anxiety F41.9 and Other chronic pain G89 .29 [facility] [address] [place] [id number] March, Gastrointestinal hemorrhage associated w ith acute gastritis K29.01 [place] [address] [address] March, [email or web address] [address] [place] [id number] March, Bronchitis J40 [place] [address] [address] March, Cough R05 [place] [address] [address] March, Other chronic pain G89.29 [place] [address] [address] March, Anxiety F41.9 [place] [address] [address] March, [place] [address] [address] Feb, Other chronic pain G89.29 [place] [address] [address] Feb, Anxiety F41.9 [facility] [address] [address] Feb, Other chronic pain G89.29 [facility] [address] [place] [address] Feb, Neurogenic bladder N31.9 and Suprapubic catheter Z93.59 [facility] [address] [address] Jan, Anxiety F41.9 [facility] [address] [address] Dec, Anxiety F41.9 [facility] [address] [address] Dec, Other chronic pain G89.29 and Anxiety F4 1.9 [facility] [address] [address] Dec, [facility] [address] [place] [id number] Dec, Neurogenic bladder N31.9 and Suprapubic catheter Z93.59 [place] [address] [address] Nov, Other chronic pain G89.29 and Anxiety F4 1.9 [facility] [address] [address] Nov, [facility] [address] [place] [id number] Nov, Suprapubic catheter Z93.59 [facility] [address] [address] Oct, Other chronic pain G89.29 and Anxiety F4 1.9 [facility] [address] [address] Oct, [facility] [address] [address] Oct, Suprapubic catheter Z93.59 [place] [address] [address] Oct, [facility] [address] [place] [id number] Oct, [place] [address] [address] Oct, Anxiety F41.9 [place] [address] [address] Oct, Anxiety F41.9 [facility] [address] [place] [id number] Oct, Other chronic pain G89.29 [place] [address] [address] Sep, Other chronic pain G89.29 [facility] [address] [place] [id number] Sep, Suprapubic catheter Z93.59 and Cervicalg ia M54.2 [place] [address] [address] Sep, [place] [address] [address] Sep, [place] [address] [address] Sep, [facility] [address] [place] [id number] Aug, Cystitis N30.90 [place] [address] [address] Aug, [place] [address] [address] Aug, Other chronic pain G89.29 [place] [address] [address] Aug, [facility] [address] [place] [id number] Aug, Encounter for suprapubic catheter care Z 43.5 [place] [id number] [place] [address] Jul, Via [email or web address] [address] [place] [id number] Jul, [facility] [address] [address] Jul, Other chronic pain G89.29 [place] [address] [address] Jul, [place] [address] [address] Jul, [email or web address] [address] [place] [id number] Jun, 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 [place] [address] [address] Jun, Other chronic pain G89.29 [place] [address] [address] Jun, [email or web address] [address] [place] [id number] May, Anxiety F41.9 ; Type 2 diabetes mellitus without complication, without long-term current use of insulin E11.9 ; Hypertension I10 ; Low back pain M54.5 ; Paroxysmal atrial fibrillation I48.0 and 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 [place] [address] [address] May, Other chronic pain G89.29 [email or web address] [address] [place] [id number] May, Low back pain M54.5 [place] [address] [address] May, [place] [address] [address] Apr, Other chronic pain G89.29 [place] [address] [address] Apr, [facility] [address] [address] Apr, [facility] [employer] [address] [place] [id number] Apr, Closed compression fracture of L3 lumbar vertebra with routine healing, subsequent encounter S32.030D [facility] [address] [place] [id number] 14 Apr, 2018 Low back pain M54.5 [facility] [employer] [address] [place] [id number] Apr, Coccydynia M53.3 [facility] [address] [address] March, [facility] [address] [address] March, Other chronic pain G89.29 [facility] [address] [address] March, [facility] [address] [address] March, [facility] [address] [address] Feb, [facility] [address] [address] Feb, Other chronic pain G89.29 [facility] [address] [place] [id number] Feb, Other chronic pain G89.29 and Anxiety F4 1.9 [facility] [address] [address] Feb, [facility] [address] [address] Jan, [facility] [address] [address] 20 Jan, 2018 [facility] [address] [address] 13 Jan, 2018 [facility] [address] [facility] [id number] [place] [address] Jan, [facility] [address] [address] Dec, [facility] 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 [place]IND[place] [id number] [place] [address] Nov, [place] [address] [id number] [place] [id number] Nov, Anxiety F41.9 [place] [address] [place] [address] Nov, [place] [address] [id number] [place] [address] Nov, Anxiety F41.9 [email or web address] [address] [place] [id number] Nov, Status post surgery Z98.890 ; Confused R 41.0 ; Anxiety F41.9 and Other chronic pain G89.29 [facility] [address] [id number] [place] [address] Nov, Other chronic pain G89.29 [facility] [address] [facility] [id number] [place] [address] Oct, [address] [address] [id number] [place] [id number] Oct, Other chronic pain G89.29 [place] [address] [facility] [id number] [place] [address] Oct, Anxiety F41.9 [address] [address] [id number] [place] [id number] Sep, Other chronic pain G89.29 [facility] [address] [id number] [place] [id number] Sep, [facility] [employer] [address] [place] [id number] Aug, Dysuria R30.0 and Anxiety F41.9 [facility] [address] [address] Aug, [facility] [address] [id number] [place] [id number] Aug, Other chronic pain G89.29 [facility] [address] [address] Jul, Other chronic pain G89.29 [facility] [address] [id number] [place] [id number] Jun, [facility] [address] [id number] [place] [id number] Jun, Other chronic pain G89.29 [facility] [address] [address] Jun, [facility] [address] [address] May, Other chronic pain G89.29 [facility] [address] [address] Apr, Other chronic pain G89.29 [facility] [facility] [address] [place] [id number] Apr, Reactive depression F32.9 and Pharyngeal dysphagia R13.13 [facility] [address] [address] Apr, Urinary tract infection without hematuri a, site unspecified N39.0 [facility] [address] [address] March, Other chronic pain G89.29 [facility] [address] [address] Feb, Other chronic pain G89.29 [facility] [address] [address] Feb, [place] [address] [id number] [facility] [id number] Feb, [facility] [employer] [address] [place] [id number] Feb, Dysuria R30.0 and Ventral hernia without obstruction or gangrene K43.9 [place] [address] [address] Jan, Other chronic pain G89.29 [place] [address] [id number] [place] [facility] [id number] Dec, Other chronic pain G89.29 [place] [address] [address] Nov, Other chronic pain G89.29 [facility] [employer] [facility] [address] [place] [address] Nov, Lymphadenitis I88.9 [place] [address] [address] Nov, Other chronic pain G89.29 [place] [address] [address] Nov, [place] [address] [id number] [place] [address] Nov, Other chronic pain G89.29 [facility] [address] [place] [address] Oct, Low back pain M54.5 ; Hypertension I10 a nd Type 2 diabetes mellitus without complication, without long-term current use of insulin E11.9 [place] [address] [address] Oct, [place] [address] [address] Oct, [facility] [address] [id number] [place] [address] Oct, [facility] [address] [id number] [place] [address] Oct, [facility] [id number] [place] [address] Sep, [facility] [id number] [place] [address] Sep, [facility] [address] [facility] [id number] [place] [address] Aug, Other chronic pain G89.29 [facility] [id number] [place] [address] Jul, [facility] [id number] [place] [address] Jul, [facility] [id number] [place] [address] Jul, [facility] [id number] [place] [address] Jun, [facility] [id number] [place] [address] Jun, [facility] [address] [place] [id number] Jun, Low back pain M54.5 ; Other chronic pain G89.29 and Coronary artery disease I25.10 [facility] [id number] [place] [address] Jun, [facility] [id number] [place] [address] May, [facility] [id number] [place] [address] May, [facility] [id number] [place] [address] May, Other chronic pain G89.29 [facility] [id number] [place] [address] May, [facility] [address] [address] Apr, [facility] [address] [address] Apr, Acute cystitis without hematuria N30.00 [facility] [address] [address] 16 Apr, 2016 Acute cystitis without hematuria N30.00 ; Coronary artery disease I25.10 ; Low back pain M54.5 and Other chronic pain G89.29 [facility] [address] [address] Apr, Other chronic pain G89.29 [facility] [address] [address] March, Other chronic pain G89.29 [facility] [address] [address] Feb, [facility] [address] [address] Feb, Arthritis M19.90 [facility] [address] [address] Feb, [facility] [address] [address] Jan, [facility] [address] [address] Jan, [facility] [address] [address] Jan, Other chronic pain G89.29 [facility] [address] [address] Jan, Hypertension I10 ; Coronary artery disea se I25.10 and Insomnia G47.00 [facility] [address] [address] Jan, [facility] [id number] [place] [address] Dec, Right hip pain M25.551 [facility] [id number] [place] [address] Dec, [facility] [id number] [place] [address] Dec, [facility] [id number] [place] [address] Dec, [facility] [id number] [place] [address] Dec, Other chronic pain G89.29 [facility] [id number] [place] [address] Dec, [facility] [address] [address] Nov, [facility] [id number] [place] [address] Nov, Other chronic pain G89.29 [facility] [address] [place] [address] Nov, Right hip pain M25.551 and Coronary karissa ry disease I25.10 [facility] [address] [place] [address] Nov, Other chronic pain G89.29 [facility] [id number] [place] [address] Oct, [facility] [address] [address] Oct, [facility] [address] [address] Sep, [facility] [address] [address] Sep, [facility] [address] [address] Aug, [facility] [id number] [place] [address] Aug, Hypertension I10 ; Coronary artery disea se I25.10 and Arthritis M19.90 [facility] [id number] [place] [address] Jun, [facility] [address] [address] Jun, Essential hypertension, benign 401.1 ; O ther chronic pain 338.29 and Chronic airway obstruction, not elsewhere classified 496 [facility] [id number] [place] [address] Jun, [facility] [address] [address] Jun, [facility] [id number] [place] [id number] Jun, [facility] [id number] [place] [address] May, [facility] [address] [address] May, [facility] [id number] [place] [address] Apr, [facility] [id number] [place] [id number] Apr, [facility] [id number] [place] [address] Apr, [facility] [id number] [place] [address] March, [facility] [id number] [place] [address] March, [facility] [id number] [place] [address] March, [facility] [address] [address] March, [facility] [address] [facility] [id number] [place] [address] March, Sialadenitis 527.2 [facility] [address] [id number] [facility] [place] [address] Feb, [facility] [address] [facility] [id number] [place] [address] Feb, [facility] [address] [facility] [id number] [place] [address] Feb, [facility] [address] [facility] [id number] [place] [address] Feb, [facility] [address] [facility] [id number] [place] [address] Feb, [facility] [address] [facility] [id number] [place] [address] Jan, [facility] [address] [facility] [id number] [place] [address] Jan, [facility] [address] [facility] [id number] [place] [address] Jan, [facility] [address] [facility] [id number] [place] [address] Jan, [facility] [address] [facility] [id number] [place] [address] Jan, [facility] [address] [facility] [id number] [place] [address] Jan, [facility] [address] [facility] [id number] [place] [address] Dec, [facility] [address] [id number] [place] [address] Dec, [facility] [address] [id number] [place] [address] Dec, [facility] [address] [id number] [place] [address] Dec, [facility] [address] [id number] [place] [address] Dec, [facility] [address] [facility] [facility] [id number] [place] [address] Dec, [facility] [address] [facility] [id number] [place] [address] Nov, [facility] [address] [facility] [id number] [place] [address] Nov, [facility] [address] [facility] [id number] [place] [address] Nov, [facility] [address] [facility] [id number] [place] [address] Nov, [facility] [address] [facility] [id number] [place] [address] Nov, [facility] [address] [facility] [id number] [place] [address] Nov, [facility] [address] [facility] [id number] [place] [address] Nov, [facility] [address] [facility] [id number] [place] [address] Nov, [facility] [address] [facility] [id number] [place] [address] Nov, [facility] [address] [facility] [id number] [place] [address] Nov, [facility] [address] [facility] [id number] [place] [address] Nov, [facility] [address] [facility] [id number] [place] [address] Nov, [facility] [address] [facility] [id number] [place] [address] Nov, [facility] [address] [facility] [id number] [place] [address] Nov, [facility] [address] [facility] [id number] [place] [address] Oct, [facility] [address] [facility] [id number] [place] [address] Oct, [facility] [address] [facility] [id number] [place] [address] Oct, [facility] [address] [facility] [id number] [place] [address] Oct, [facility] [address] [facility] [id number] [place] [address] Oct, [facility] [address] [facility] [id number] [place] [address] Oct, [facility] [address] [facility] [id number] [place] [address] Oct, [facility] [address] [facility] [id number] [place] [address] Oct, [facility] [address] [facility] [id number] [place] [address] Oct, [facility] [address] [facility] [id number] [place] [address] Sep, [facility] [address] [facility] [id number] [place] [address] Sep, [facility] [address] [facility] [id number] [place] [address] Sep, [facility] [address] [facility] [id number] [place] [address] Sep, [facility] [address] [facility] [id number] [place] [address] Sep, [facility] [address] [facility] [id number] [place] [address] Sep, [facility] [address] [facility] [id number] [place] [address] Sep, [facility] [address] [facility] [id number] [place] [address] Sep, [facility] [address] [facility] [id number] [place] [address] Sep, [facility] [address] [facility] [id number] [place] [address] Sep, [facility] [address] [facility] [id number] [place] [address] Sep, [facility] [address] [facility] [id number] [place] [address] Sep, [facility] [address] [facility] [id number] [place] [address] Aug, [facility] [address] [facility] [id number] [place] [address] Aug, [facility] [address] [facility] [id number] [place] [address] Aug, [facility] [address] [facility] [id number] [place] [address] Aug, [facility] [address] [facility] [id number] [place] [address] Aug, [facility] [address] [facility] [id number] [place] [address] Aug, [facility] [address] [facility] [id number] [place] [address] Aug, [facility] [address] [facility] [id number] [place] [address] Aug, [facility] [address] [facility] [id number] [place] [address] 30 Jul, 2013 [facility] [address] [facility] [id number] [place] [address] 30 Sep, 2013 [facility] [address] [facility] [id number] [place] [address] 30 Sep, 2013 [facility] [address] [facility] [id number] [place] [address] 30 Sep, 2013 [facility] [address] [facility] [id number] [place] [address] 25 Jul, 2013 [facility] [address] [id number] [place] [address] 25 Jul, 2014 [facility] [address] [id number] [place] [address] Jul, [facility] [address] [facility] [id number] [place] [address] Jul, [facility] [address] [facility] [id number] [place] [address] Jul, [facility] [address] [facility] [id number] [place] [address] Jul, [facility] [address] [facility] [id number] [place] [address] Jun, [facility] [address] [facility] [id number] [place] [address] Jun, [facility] [address] [facility] [id number] [place] [address] Jun, [facility] [address] [facility] [id number] [place] [address] Jun, [facility] [address] [facility] [id number] [place] [address] Jun, [facility] [address] [facility] [id number] [place] [address] Jun, [facility] [address] [facility] [id number] [place] [address] Jun, [facility] [address] [facility] [id number] [place] [address] Jun, [facility] [address] [id number] [place] [address] Jun, [facility] [address] [facility] [id number] [place] [address] Jun, [facility] [address] [facility] [id number] [place] [address] Jun, [facility] [address] [facility] [id number] [place] [address] Jun, [facility] [address] [id number] [place] [address] Jun, [facility] [address] [facility] [id number] [place] [place] [address] Jun, [facility] [address] [facility] [id number] [place] [address] Jun, [facility] [address] [id number] [place] [address] Jun, [facility] [address] [facility] [id number] [place] [address] Jun, [facility] [address] [facility] [id number] [place] [address] Jun, [facility] [address] [facility] [id number] [place] [address] Jun, [facility] [address] [facility] [id number] [place] [address] Jun, [facility] [address] [facility] [id number] [place] [address] Jun, [facility] [address] [facility] [id number] [place] [address] Jun, [facility] [address] [facility] [id number] [place] [address] May, [facility] [address] [facility] [id number] [place] [address] May, [facility] [address] [facility] [id number] [place] [address] May, [facility] [address] [id number] [place] [address] May, [facility] [address] [facility] [id number] [place] [address] May, [facility] [address] [facility] [id number] [place] [address] May, [facility] [address] [id number] [place] [address] May, 2013 [facility] [address] [facility] [id number] [place] [address] May, 2013 [facility] [address] [facility] [id number] [place] [address] May, [facility] [address] [facility] [id number] [place] [place] [address] May, [facility] [address] [facility] [id number] [place] [address] May, [facility] [address] [facility] [id number] [place] [address] May, [facility] [address] [facility] [id number] [place] [address] May, [facility] [address] [facility] [id number] [place] [address] Apr, [facility] [address] [facility] [id number] [place] [address] Apr, [facility] [address] [facility] [id number] [place] [address] Apr, [facility] [address] [facility] [id number] [place] [place] [address] Apr, [facility] [address] [facility] [id number] [place] [address] Apr, [facility] [address] [facility] [id number] [place] [address] Apr, [facility] [address] [facility] [id number] [place] [address] Apr, [facility] [address] [facility] [id number] [place] [address] Apr, [facility] [address] [facility] [id number] [place] [address] Apr, [facility] [address] [facility] [id number] [place] [address] March, [facility] [address] [facility] [id number] [place] [address] March, [facility] [address] [facility] [id number] [place] [address] March, [facility] [address] [facility] [id number] [place] [address] March, [facility] [address] [facility] [id number] [place] [address] March, [facility] [address] [facility] [id number] [place] [address] March, [facility] [address] [facility] [id number] [place] [address] March, [facility] [address] [facility] [id number] [place] [address] March, [facility] [address] [facility] [id number] [place] [address] March, [facility] [address] [facility] [id number] [place] [address] March, [facility] [address] [facility] [id number] [place] [address] March, [facility] [address] [facility] [id number] [place] [address] March, [facility] [address] [facility] [id number] [place] [address] March, [facility] [address] [facility] [id number] [place] [address] March, [facility] [address] [facility] [id number] [place] [address] March, [facility] [address] [facility] [id number] [place] [address] March, [facility] [address] [facility] [id number] [place] [address] March, [facility] [address] [facility] [id number] [place] [address] March, [facility] [address] [facility] [id number] [place] [address] March, [facility] [address] [facility] [id number] [place] [address] March, [facility] [address] [facility] [id number] [place] [address] Feb, [facility] [address] [facility] [id number] [place] [address] Feb, [facility] [address] [facility] [id number] [place] [address] Feb, [facility] [address] [facility] [id number] [place] [address] Feb, [facility] [address] [facility] [id number] [place] [address] Feb, [facility] [address] [facility] [id number] [place] [address] Feb, [facility] [address] [facility] [id number] [place] [address] Feb, [facility] [address] [facility] [id number] [place] [address] Feb, [facility] [address] [facility] [id number] [place] [address] Jan, [facility] [address] [facility] [id number] [place] [address] Jan, [facility] [address] [facility] [id number] [place] [address] Jan, [facility] [address] [facility] [id number] [place] [address] 24 Jan, 2014 [facility] [address] [facility] [id number] [place] [address] Jan, [facility] [address] [facility] [id number] [place] [address] Jan, [facility] [address] [facility] [id number] [place] [address] Jan, [facility] [address] [facility] [id number] [place] [address] Jan, [facility] [address] [facility] [id number] [place] [address] Jan, [facility] [address] [facility] [id number] [place] [address] Jan, [facility] [address] [facility] [id number] [place] [address] Dec, [facility] [address] [facility] [id number] [place] [address] Dec, [facility] [address] [facility] [id number] [place] [address] Dec, [facility] [address] [facility] [id number] [place] [address] Dec, [facility] [address] [facility] [id number] [place] [address] Dec, [facility] [address] [facility] [id number] [place] [address] Dec, [facility] [address] [facility] [id number] [place] [address] Dec, [facility] [address] [facility] [id number] [place] [address] Dec, [facility] [address] [facility] [id number] [place] [address] Nov, [facility] [address] [facility] [id number] [place] [address] Nov, [facility] [address] [facility] [id number] [place] [address] Nov, [facility] [address] [facility] [id number] [place] [address] Nov, [facility] [address] [facility] [id number] [place] [address] Nov, [facility] [address] [facility] [id number] [place] [address] Nov, [facility] [address] [id number] [place] [address] Nov, [facility] [address] [facility] [id number] [place] [address] Nov, [facility] [address] [facility] [id number] [place] [address] Nov, [facility] [address] [facility] [id number] [place] [address] Nov, [facility] [address] [id number] [place] [address] Nov, [facility] [address] [id number] [place] [address] Nov, [facility] [address] [facility] [id number] [place] [address] Nov, [facility] [address] [facility] [id number] [place] [address] Oct, [facility] [address] [id number] [place] [address] Oct, [facility] [address] [id number] [place] [address] Oct, [facility] [address] [facility] [id number] [place] [address] Oct, [facility] [address] [facility] [id number] [place] [address] Oct, [facility] [address] [id number] [place] [address] Oct, [facility] [address] [facility] [id number] [place] [address] Oct, [facility] [address] [facility] [id number] [place] [address] Oct, [facility] [address] [facility] [id number] [place] [address] 17 Oct, 2013 [facility] [address] [facility] [id number] [place] [address] Oct, [facility] [address] [facility] [id number] [place] [address] Oct, [facility] [address] [facility] [id number] [place] [address] Oct, [facility] [address] [facility] [id number] [place] [address] Oct, [facility] [address] [facility] [id number] [place] [address] Oct, [facility] [id number] [place] [address] Sep, [facility] [address] [id number] [place] [address] Sep, [facility] [address] [id number] [place] [address] Sep, [facility] [address] [id number] [place] [address] Sep, [facility] [address] [id number] [place] [address] Sep, [facility] [id number] [place] [address] Sep, [facility] [id number] [place] [address] Sep, [facility] [address] [facility] [id number] [place] [address] Sep, [facility] [id number] [place] [address] Sep, [facility] [address] [facility] [id number] [place] [address] Sep, [facility] [address] [facility] [id number] [place] [address] Aug, [facility] [address] [facility] [id number] [place] [address] 24 Aug, 2012 [facility] [address] [facility] [id number] [place] [address] 24 Aug, 2012 [facility] [address] [facility] [id number] [place] [id number] 24 Aug, 2012 [facility] [address] [facility] [id number] [place] [address] 23 Aug, 2012 [facility] [address] [facility] [id number] [place] [address] 23 Aug, 2012 [facility] [address] [facility] [id number] [place] [address] 23 Aug, 2012 [facility] [address] [facility] [id number] [place] [address] Aug, 2012 [facility] [address] [facility] [id number] [place] [address] Aug, 2012 [facility] [address] [facility] [id number] [place] [address] 22 Aug, 2012 [facility] [address] [facility] [id number] [place] [id number] 18 Aug, 2012 [facility] [address] [facility] [id number] [place] [address] 18 Aug, 2012 [facility] [address] [facility] [id number] [place] [address] 18 Aug, 2012 [facility] [address] [facility] [id number] [place] [address] 18 Aug, 2012 [facility] [address] [facility] [id number] [place] [address] 17 Aug, 2012 [facility] [address] [facility] [id number] [place] [address] 14 Aug, 2012 [facility] [address] [facility] [id number] [place] [address] 14 Aug, 2012 [facility] [address] [facility] [id number] [place] [address] Aug, [facility] [address] [id number] [place] [address] 20 Jul, 2013 [facility] [address] [facility] [id number] [place] [address] 19 Jul, 2013 [facility] [address] [facility] [id number] [place] [address] 18 Jul, 2013 [facility] [address] [facility] [id number] [place] [address] Jul, [facility] [address] [facility] [id number] [place] [address] Jul, [facility] [address] [facility] [id number] [place] [address] Jun, [facility] [address] [facility] [id number] [place] [address] Jun, [facility] [address] [facility] [id number] [place] [address] Jun, [facility] [address] [facility] [id number] [place] [address] Jun, [facility] [address] [facility] [id number] [place] [address] Jun, [facility] [address] [facility] [id number] [place] [address] Jun, [facility] [address] [facility] [id number] [place] [address] Jun, [facility] [address] [facility] [id number] [place] [address] Jun, [facility] [address] [facility] [id number] [place] [address] Jun, [facility] [address] [facility] [id number] [place] [address] Jun, [facility] [address] [facility] [id number] [place] [address] May, [facility] [address] [facility] [id number] [place] [address] May, [facility] [address] [id number] [place] [place] [address] May, [facility] [address] [facility] [id number] [place] [place] [address] May, [facility] [address] [facility] [id number] [place] [place] [address] May, [facility] [address] [facility] [id number] [place] [place] [address] May, [facility] [address] [facility] [id number] [place] [place] [address] May, [facility] [address] [facility] [id number] [place] [place] [address] May, [facility] [address] [facility] [id number] [place] [place] [address] May, [facility] [address] [facility] [id number] [place] [address] Apr, [facility] [address] [facility] [id number] [place] [place] [address] Apr, [facility] [address] [facility] [id number] [place] [address] Apr, [facility] [address] [facility] [id number] [place] [address] Apr, [facility] [address] [facility] [id number] [place] [address] Apr, [facility] [address] [facility] [id number] [facility] [place] [address] Apr, [facility] [address] [facility] [id number] [place] [address] Apr, [facility] [address] [facility] [id number] [place] [address] March, [facility] [address] [facility] [id number] [facility] [place] [address] Feb, [facility] [address] [facility] [id number] [place] [address] 25 Feb, 2013 [facility] [address] [facility] [id number] [place] [address] Feb, [facility] [address] [facility] [id number] [place] [address] 28 Jan, 2013 [facility] [address] [facility] [id number] [place] [address] 21 Jan, 2013 [facility] [address] [facility] [id number] [place] [address] 19 Jan, 2013 [facility] [address] [facility] [id number] [place] [address] 14 Jan, 2013 [facility] [address] [facility] [id number] [place] [address] 12 Jan, 2013 [facility] [address] [facility] [id number] [place] [address] 08 Jan, 2013 [facility] [address] [facility] [id number] [place] [address] 07 Jan, 2013 [facility] [address] [facility] [id number] [place] [address] 04 Jan, 2013 [facility] [address] [facility] [id number] [place] [address] 28 Dec, 2012 [facility] [address] [facility] [id number] [place] [address] 25 Dec, 2012 [facility] [address] [facility] [id number] [place] [address] 13 Dec, 2012 [facility] [address] [facility] [id number] [place] [address] 11 Dec, 2012 [facility] [address] [facility] [id number] [place] [address] 07 Dec, 2012 [facility] [address] [facility] [id number] [place] [address] 06 Dec, 2012 [facility] [address] [facility] [id number] [place] [address] 05 Dec, 2012 [facility] [address] [facility] [id number] [place] [address] Nov, [facility] [address] [facility] [id number] [place] [address] 24 Nov, 2012 [facility] [address] [facility] [id number] [place] [address] 18 Nov, 2012 [facility] [address] [facility] [id number] [place] [address] 15 Nov, 2012 [facility] [address] [facility] [id number] [place] [address] Nov, [facility] [address] [facility] [id number] [place] [address] Nov, [facility] [address] [facility] [id number] [place] [address] Nov, [facility] [address] [facility] [id number] [place] [address] Oct, [facility] [address] [facility] [id number] [place] [address] Oct, [facility] [address] [facility] [id number] [place] [address] Oct, [facility] [address] [facility] [id number] [place] [address] Oct, [facility] [address] [facility] [id number] [place] [address] Oct, [facility] [address] [facility] [id number] [place] [address] Oct, [facility] [address] [facility] [id number] [place] [address] Oct, [facility] [address] [facility] [id number] [place] [address] Oct, [facility] [address] [facility] [id number] [place] [address] Oct, [facility] [address] [facility] [id number] [place] [address] Oct, [facility] [address] [facility] [id number] [place] [address] Oct, [facility] [address] [facility] [id number] [place] [address] Oct, [facility] [id number] [place] [address] Sep, [facility] [address] [facility] [id number] [place] [address] Sep, [facility] [address] [facility] [id number] [place] [address] Sep, [facility] [address] [facility] [id number] [place] [address] Sep, [facility] [id number] [place] [address] Sep, [facility] [id number] [place] [address] Sep, [facility] [address] [facility] [id number] [place] [address] Sep, [facility] [id number] [place] [address] Sep, [facility] [address] [facility] [id number] [place] [address] Sep, [facility] [address] [facility] [id number] [place] [address] Sep, [facility] [address] [facility] [id number] [place] [address] Sep, [facility] [id number] [place] [address] Aug, [facility] [address] [facility] [id number] [place] [address] Aug, [facility] [address] [facility] [id number] [place] [address] Aug, [facility] [address] [facility] [id number] [place] [address] Aug, [facility] [address] [facility] [id number] [place] [address] Aug, [facility] [address] [facility] [id number] [place] [address] Aug, [facility] [address] [facility] [id number] [place] [address] Aug, [facility] [address] [facility] [id number] [place] [address] Aug, [facility] [address] [facility] [id number] [place] [address] Aug, [facility] [address] [facility] [id number] [place] [address] Aug, [facility] [address] [facility] [id number] [place] [address] Jul, [facility] [address] [facility] [id number] [place] [address] Jul, [facility] [address] [facility] [id number] [place] [address] Jul, [facility] [address] [facility] [id number] [place] [address] Jul, [facility] [address] [facility] [id number] [place] [address] Jun, [facility] [address] [facility] [id number] [place] [address] Jun, [facility] [address] [facility] [id number] [place] [address] Jun, [facility] [address] [facility] [id number] [place] [address] Jun, [facility] [address] [facility] [id number] [place] [address] Jun, [facility] [address] [facility] [id number] [place] [address] Jun, [facility] [address] [id number] [place] [address] Jun, [facility] [address] [facility] [id number] [place] [address] May, [facility] [address] [facility] [id number] [place] [address] May, [facility] [address] [id number] [place] [address] May, [facility] [address] [facility] [id number] [place] [address] May, [facility] [address] [id number] [place] [address] May, [facility] [address] [facility] [id number] [place] [address] Apr, [facility] [address] [facility] [id number] [place] [address] Apr, [facility] [address] [facility] [id number] [place] [address] Apr, [facility] [address] [facility] [id number] [place] [address] Apr, [facility] [address] [facility] [id number] [place] [address] Apr, [facility] [address] [facility] [id number] [place] [address] March, [facility] [address] [facility] [id number] [place] [address] March, [facility] [address] [id number] [place] [address] March, [facility] [address] [facility] [id number] [place] [address] March, [facility] [address] [facility] [id number] [place] [address] March, [facility] [address] [facility] [id number] [place] [address] March, [facility] [address] [id number] [place] [address] March, [facility] [address] [facility] [id number] [place] [address] March, [facility] [address] [facility] [id number] [place] [address] March, [facility] [address] [facility] [id number] [place] [address] March, [facility] [address] [facility] [id number] [place] [address] Feb, [facility] [address] [facility] [id number] [place] [address] Feb, [facility] [address] [facility] [id number] [place] [address] Feb, [facility] [address] [facility] [id number] [place] [address] Feb, [facility] [address] [facility] [id number] [place] [address] Feb, [facility] [address] [facility] [id number] [place] [address] Feb, [facility] [address] [facility] [id number] [place] [address] Feb, [facility] [address] [facility] [id number] [place] [address] Feb, [facility] [address] [facility] [id number] [place] [address] Feb, [facility] [address] [facility] [id number] [place] [address] Jan, [facility] [address] [facility] [id number] [place] [address] Jan, [facility] [address] [facility] [id number] [place] [address] Jan, [facility] [address] [facility] [id number] [place] [address] Jan, [facility] [address] [facility] [id number] [place] [address] Dec, [facility] [address] [facility] [id number] [place] [address] Dec, [facility] [address] [facility] [id number] [place] [address] Nov, [facility] [address] [facility] [id number] [place] [address] Nov, [facility] [address] [facility] [id number] [place] [address] Nov, [facility] [address] [facility] [id number] [place] [address] Nov, [facility] [address] [facility] [id number] [place] [address] Nov, [facility] [address] [facility] [id number] [place] [address] Oct, [facility] [address] [facility] [id number] [place] [address] Oct, [facility] [address] [facility] [id number] [place] [address] Oct, [facility] [address] [facility] [id number] [place] [address] Oct, [facility] [address] [facility] [id number] [place] [address] Oct, [facility] [address] [facility] [id number] [place] [address] Oct, [facility] [address] [facility] [id number] [place] [address] Oct, [facility] [address] [facility] [id number] [place] [address] Oct, [facility] [address] [facility] [id number] [place] [address] Sep, IMMUNIZATIONS No Known Immunizations SOCIAL HISTORY Never Assessed REASON FOR VISIT PLAN OF CARE VITAL SIGNS MEDICATIONS No [...] discharged 11/27/2017 11/26/2017 Hospitalization History [facility] [place]- Went Unrepsonsive, Hit head 2017 Hospitalization History ED [place]- Back Pain 8
--- OUTSIDE RECORDS SUMMARY | 2020-06-18 14:53 | XMS REPORT ---
Author Author ELIZABETH Sanjuanita OLGUIN [facility] Address [address] [place] [address] Care Team Providers Care Furniture Sander Name Role Phone SHARIF JOHNSON Unavailable PROBLEMS Type Condition ICD9-CM Code IBG11-MI Code Onset Dates Condition S tatus SNOMED Code Problem Hypertension I10 Active 8593271 3 Problem Hyperlipidemia E78.5 Active 75662 004 Problem Coronary artery disease I25.10 Active 03332950 Problem Low back pain M54.5 Active 490298 009 Problem Other chronic pain G89.29 Active 8 7229603 Problem Ventral hernia without obstruction or gangrene K43 .9 Active 268376602 Problem Type 2 diabetes mellitus wit hout complication, without long-term current use of insulin E11.9 Active 979254778 Problem Anxiety F41.9 Active 02874250 Problem Peripheral vascular disease I73.9 Ac tive 724834294 Problem Insomnia G47.00 Active 488521832 Problem Microcytic anemia D50.9 Active 23 0570843 Problem Pharyngeal dysphagia R13.13 Active 32508256084572 Problem Other iron deficiency anemia D50.8 A ctive 09146962 Problem Reactive depression F32.9 Active 05374687 Problem Paroxysmal atrial fibrillation I48.0 Active 850601779 Problem 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 Active 13025529 Problem Encounter for suprapubic catheter care Z43.5 Active 814030708 Problem Neurogenic bladder N31.9 Active 3 [id number] ALLERGIES No Information ENCOUNTERS Encounter Location Date Diagnosis Via [facility] [address] [place] [id number] Jan, Neurogenic bladder N31.9 [facility] [place] [address] [facility] [place] [address] Dec, [facility] [place] [address] [facility] [place] [address] Dec, [place] [address] [address] Dec, Anxiety F41.9 and Strain of right should er, subsequent encounter S46.911D [place] [address] [address] 10 Dec, 2019 Other iron deficiency anemia D50.[address] [address] 04 Dec, 2019 Via [employer] [address] [place] [address] Dec, Encounter for suprapubic catheter care Z 43.5 and Microcytic anemia D50.9 [place] [address] [address] Dec, [place] [address] [address] Nov, Anxiety F41.9 and Strain of right should er, subsequent encounter S46.911D [place] [address] [address] Nov, Hypertension I10 Via [email or web address] [address] [place] [id number] Nov, Pneumonia of both lungs due to infectiou s organism, unspecified part of lung J18.9 and Suprapubic catheter Z93.59 [place] [address] [address] Nov, Hypertension I10 and Reactive depression F32.[address] [address] Oct, Strain of right shoulder, subsequent enc ounter S46.911D and Anxiety F41.9 [place] [address] [address] Oct, Via [facility] [address] [place] [id number] Oct, Suprapubic catheter Z93.59 and Candidias is, intertriginous B37.2 [facility] [place] [id number] [place] [address] Oct, Suprapubic catheter Z93.59 [facility] [place] [address] [facility] [place] [address] Oct, Anxiety F41.9 and Strain of right should er, subsequent encounter S46.911D [facility] [place] [id number] [place] [address] Sep, [facility] [place] [id number] [place] [address] Sep, [facility] [place] [id number] [place] [address] Sep, Via [employer] [address] [place] [address] Sep, Suprapubic catheter Z93.59 [facility] [place] [id number] [place] [address] Sep, Anxiety F41.9 and Strain of right should er, subsequent encounter S46.911D [facility] [place] [id number] [place] [address] Aug, [facility] [place] [id number] [place] [address] Aug, [facility] [place] [id number] [place] [address] Aug, Anxiety F41.9 and Strain of right should er, subsequent encounter S46.911D Via [email or web address] [address] [place] [id number] Aug, Suprapubic catheter Z93.59 [facility] [place] [id number] [place] [address] Jul, Strain of right shoulder, subsequent enc ounter S46.911D and Anxiety F41.9 [facility] [place] [id number] [place] [address] Jul, Anxiety F41.9 [place] [address] [facility] [place] [address] Jun, [facility] [place] [id number] [place] [address] Jun, [facility] [place] [address] [facility] [place] [address] Jun, [place] [id number] [place] [address] Jun, Strain of right shoulder, subsequent enc ounter S46.911D [place] [address] [facility] [place] [address] Jun, Strain of right shoulder, subsequent enc ounter S46.911D [place] [address] [facility] [place] [address] Jun, Anxiety F41.9 Via [facility] [address] [place] [id number] Jun, Neurogenic bladder N31.9 and Anxiety F41 .9 Via [facility] [address] [place] [id number] May, Anxiety F41.9 [place] [address] [facility] [place] [address] May, Dysuria R30.0 [place] [address] [facility] [place] [address] May, Strain of right shoulder, subsequent enc ounter S46.911D and Anxiety F41.9 [place] [address] [facility] [place] [address] Apr, Via [facility] [address] [place] [address] Apr, Strain of right shoulder, subsequent enc ounter S46.911D [place] [address] [facility] [place] [address] Apr, Strain of right shoulder, subsequent enc ounter S46.911D and Anxiety F41.9 Via [email or web address] [address] [place] [id number] 13 Apr, 2019 Type 2 diabetes mellitus without complic ation, without long-term current use of insulin E11.9 and Neurogenic bladder N31.9 Via [email or web address] [address] [place] [id number] 11 Apr, 2019 Strain of right shoulder, subsequent enc ounter S46.911D ; History of GI bleed Z87.19 ; Neurogenic bladder N31.9 and Reactive depression F32.9 [place] [address] [address] 10 Apr, 2019 Acute pain of left shoulder M25.512 [place] [address] [address] Apr, [place] [address] [address] Apr, Anxiety F41.9 and Other chronic pain G89 .29 Via [email or web address] [address] [place] [id number] March, Gastrointestinal hemorrhage associated w ith acute gastritis K29.01 [place] [address] [address] March, Via [email or web address] [address] [place] [id number] March, Bronchitis J40 [place] [address] [address] March, Cough R05 [place] [address] [address] March, Other chronic pain G89.29 [place] [address] [address] March, Anxiety F41.9 [place] [address] [address] March, [place] [address] [address] Feb, Other chronic pain G89.29 [facility] [place] [address] [address] Feb, Anxiety F41.9 [facility] [place] [address] [address] Feb, Other chronic pain G89.29 Via [facility] [address] [place] [id number] Feb, Neurogenic bladder N31.9 and Suprapubic catheter Z93.59 [facility] [place] [address] [address] Jan, Anxiety F41.9 [place] [address] [address] Dec, Anxiety F41.9 [place] [address] [address] Dec, Other chronic pain G89.29 and Anxiety F4 1.9 [facility] [place] [address] [address] Dec, Via [employer] [address] [place] [address] Dec, Neurogenic bladder N31.9 and Suprapubic catheter Z93.59 [place] [address] [address] Nov, Other chronic pain G89.29 and Anxiety F4 1.9 [facility] [place] [address] [address] Nov, Via [employer] [address] [place] [address] Nov, Suprapubic catheter Z93.59 [place] [address] [address] Oct, Other chronic pain G89.29 and Anxiety F4 1.9 [place] [address] [address] Oct, [facility] [place] [address] [address] Oct, Suprapubic catheter Z93.59 [facility] [place] [address] [address] Oct, Via [facility] [employer] [address] [place] [id number] Oct, [facility] [place] [address] [address] Oct, Anxiety F41.9 [facility] [place] [address] [address] Oct, Anxiety F41.9 Via [facility] [employer] [address] [place] [id number] Oct, Other chronic pain G89.29 [place] [address] [address] Sep, Other chronic pain G89.29 Via [facility] [employer] [address] [place] [id number] Sep, Suprapubic catheter Z93.59 and Cervicalg ia M54.2 [facility] [place] [address] [address] Sep, [facility] [place] [address] [address] Sep, [facility] [place] [address] [address] Sep, Via [facility] [employer] [address] [place] [id number] Aug, Cystitis N30.90 [facility] [place] [address] [address] Aug, [facility] [place] [address] [address] Aug, Other chronic pain G89.29 [facility] [place] [address] [address] Aug, Via [facility] [employer] [address] [place] [id number] Aug, Encounter for suprapubic catheter care Z 43.5 [place] [address] [address] Jul, [facility] [address] [place] [address] Jul, [place] [address] [address] Jul, Other chronic pain G89.29 [place] [address] [address] Jul, [place] [address] [address] Jul, Via [facility] [employer] [address] [place] [address] Jun, 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 [place] [address] [address] Jun, Other chronic pain G89.29 [place] [address] [address] Jun, Via [email or web address] [address] [place] [address] May, Anxiety F41.9 ; Type 2 diabetes mellitus without complication, without long-term current use of insulin E11.9 ; Hypertension I10 ; Low back pain M54.5 ; Paroxysmal atrial fibrillation I48.0 and 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 [place] [address] [address] May, Other chronic pain G89.29 Via [email or web address] [address] [place] [id number] May, Low back pain M54.5 [place] [address] [address] May, [place] [address] [address] Apr, Other chronic pain G89.29 [facility] [place] [address] [address] Apr, [facility] [place] [address] [address] Apr, Via [facility] [address] [place] [id number] 19 Apr, 2018 Closed compression fracture of L3 lumbar vertebra with routine healing, subsequent encounter S32.030D Via [facility] [employer] [address] [place] [id number] 14 Apr, 2018 Low back pain M54.5 Via [facility] [employer] [address] [place] [id number] 12 Apr, 2018 Coccydynia M53.3 [facility] [place] [address] [address] March, [facility] [place] [address] [address] March, Other chronic pain G89.29 [facility] [place] [address] [address] March, [facility] [place] [address] [address] March, [facility] [place] [address] [address] Feb, [facility] [place] [address] [address] Feb, Other chronic pain G89.29 Via [facility] [address] [place] [id number] Feb, Other chronic pain G89.29 and Anxiety F4 1.9 [facility] [place] [address] [address] Feb, [facility] [place] [address] [address] Jan, [facility] [place] [address] [address] Jan, [facility] [place] [address] [facility] [place] [address] Jan, [facility] [place] [id number] [place] [address] Jan, [facility] [place] [address] [facility] [place] [address] Dec, Via [email or web address] [address] [place] [address] Dec, Peripheral vascular disease I73.9 ; 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 ; Other chronic pain G89.29 ; Anxiety F41.9 ; Reactive depression F32.9 ; Insomnia G47.00 and Type 2 diabetes mellitus without complication, without long-term current use of insulin E11.[address] [id number] [place] [address] Nov, [place] [address] [id number] [place] [address] Nov, Anxiety F41.9 [place] [address] [facility] [place] [address] Nov, [place] [address] [id number] [place] [address] Nov, Anxiety F41.9 Via [email or web address] [address] [place] [id number] Nov, Status post surgery Z98.890 ; Confused R 41.0 ; Anxiety F41.9 and Other chronic pain G89.29 [place] [id number] [place] [address] Nov, Other chronic pain G89.29 [place] [id number] [place] [address] Oct, [place] [address] [id number] [place] [facility] [place] [facility] [place] [address] Oct, Other chronic pain G89.29 [place] [address] [facility] [place] [address] Oct, Anxiety F41.9 [facility] [address] [id number] [place] [address] Sep, Other chronic pain G89.29 [facility] [address] [id number] [place] [id number] Sep, Via [employer] [address] [place] [address] Aug, Dysuria R30.0 and Anxiety F41.9 [facility] [place] [address] [facility] [place] [address] Aug, [facility] [address] [id number] [place] [address] Aug, Other chronic pain G89.29 [facility] [place] [id number] [place] [address] Jul, Other chronic pain G89.29 [facility] [address] [id number] [place] [address] Jun, [facility] [address] [id number] [place] [address] Jun, Other chronic pain G89.29 [facility] [place] [id number] [place] [address] Jun, [facility] [place] [id number] [place] [address] May, Other chronic pain G89.29 [facility] [place] [address] [facility] [place] [address] Apr, Other chronic pain G89.29 Via [email or web address] [address] [place] [id number] Apr, Reactive depression F32.9 and Pharyngeal dysphagia R13.13 [facility] [place] [address] [facility] [place] [address] Apr, Urinary tract infection without hematuri a, site unspecified N39.0 [facility] [place] [address] [address] March, Other chronic pain G89.29 [facility] [place] [address] [address] Feb, Other chronic pain G89.29 [facility] [place] [address] [address] Feb, [place] [address] [id number] [place] [address] Feb, Via [employer] [address] [place] [address] Feb, Dysuria R30.0 and Ventral hernia without obstruction or gangrene K43.9 [place] [address] [address] Jan, Other chronic pain G89.29 [place] [address] [id number] [place] [address] Dec, Other chronic pain G89.29 [place] [address] [address] Nov, Other chronic pain G89.29 Via [email or web address] [address] [place] [id number] Nov, Lymphadenitis I88.9 [place] [address] [address] Nov, Other chronic pain G89.29 [place] [address] [address] Nov, [place] [address] [id number] [place] [address] Nov, Other chronic pain G89.29 Via [email or web address] [address] [place] [id number] Oct, Low back pain M54.5 ; Hypertension I10 a nd Type 2 diabetes mellitus without complication, without long-term current use of insulin E11.9 [place] [address] [address] Oct, [facility] [place] [address] [facility] [place] [address] Oct, [facility] [place] [address] [facility] [place] [address] Oct, [facility] [address] [facility] [place] [address] Oct, [facility] [address] [facility] [place] [address] Sep, [facility] [place] [address] [facility] [place] [address] Sep, [facility] [place] [address] [facility] [place] [address] Aug, Other chronic pain G89.29 [facility] [place] [id number] [place] [address] Jul, [facility] [place] [id number] [place] [address] Jul, [facility] [place] [address] [facility] [place] [address] Jul, [facility] [place] [address] [facility] [place] [address] Jun, [facility] [place] [id number] [place] [address] Jun, Via [facility] [address] [place] [id number] Jun, Low back pain M54.5 ; Other chronic pain G89.29 and Coronary artery disease I25.10 [facility] [place] [address] [facility] [place] [address] Jun, [facility] [place] [address] [facility] [place] [address] May, [facility] [place] [address] [facility] [place] [address] May, [facility] [place] [address] [address] May, Other chronic pain G89.29 [facility] [place] [address] [address] May, [facility] [place] [address] [address] Apr, [facility] [place] [address] [address] Apr, Acute cystitis without hematuria N30.00 [facility], [place] [address] [address] 16 Apr, 2016 Acute cystitis without hematuria N30.00 ; Coronary artery disease I25.10 ; Low back pain M54.5 and Other chronic pain G89.29 [facility], [place], [facility] [address] [address] Apr, Other chronic pain G89.29 [facility], [place] [address] [address] March, Other chronic pain G89.29 [facility], [place], [facility] [address] [address] 18 Feb, 2016 [facility], [place] [address] [address] Feb, Arthritis M19.90 [facility], [place], [facility] [address] [address] Feb, [facility], [place] [address] [address] 30 Jan, 2016 [facility], [place] [address] [address] Jan, [facility], [place], [facility] [address] [address] Jan, Other chronic pain G89.29 [facility], [place], [facility] [address] [address] Jan, Hypertension I10 ; Coronary artery disea se I25.10 and Insomnia G47.00 [facility] [address] [address] Jan, [facility], [place], [facility] [address] [address] Dec, Right hip pain M25.551 [facility], [place], [facility] [address] [address] Dec, [facility], [place] [address] [address] Dec, [facility] [place] [address] [address] Dec, [facility] [place] [address] [address] Dec, Other chronic pain G89.29 [facility] [place] [address] [address] Dec, [facility] [place] [address] [address] Nov, [facility] [place] [address] [address] Nov, Other chronic pain G89.29 [facility] [place] [address] [address] Nov, Right hip pain M25.551 and Coronary karissa ry disease I25.10 [facility] [place] [address] [address] Nov, Other chronic pain G89.29 [facility] [place] [address] [address] Oct, [facility] [place] [address] [address] Oct, [facility] [place] [address] [address] Sep, [facility] [place] [address] [address] Sep, [facility] [place] [id number] [place] [address] Aug, [facility] [place] [address] [address] Aug, Hypertension I10 ; Coronary artery disea se I25.10 and Arthritis M19.90 [facility] [place] [address] [address] Jun, [facility] [place] [address] [address] Jun, Essential hypertension, benign 401.1 ; O ther chronic pain 338.29 and Chronic airway obstruction, not elsewhere classified 496 [facility] [place] [id number] [place] [address] Jun, [facility] [place] [address] [address] Jun, [facility] [place] [address] [address] Jun, [facility] [place] [id number] [place] [address] May, [facility] [place] [address] [address] May, [facility] [place] [address] [address] Apr, [facility] [place] [id number] [place] [address] Apr, [facility] [place] [id number] [place] [address] Apr, [facility] [place] [id number] [place] [address] March, [facility] [place] [id number] [place] [address] March, [facility] [place] [address] [address] March, [facility] [address] [facility] [id number] [place] [address] March, [facility] [address] [id number] [place] [address] March, Sialadenitis 527.2 [facility] [address] [id number] [facility] [address] Feb, [facility] [address] [id number] [facility] [address] Feb, [facility] [address] [facility] [id number] [place] [address] Feb, [facility] [address] [id number] [place] [address] Feb, [facility] [address] [id number] [place] [address] Feb, [facility] [address] [id number] [place] [address] Jan, [facility] [address] [facility] [id number] [place] [address] Jan, [facility] [address] [id number] [place] [address] Jan, [facility] [address] [id number] [place] [address] Jan, [facility] [address] [id number] [place] [address] Jan, [facility] [place] [facility] [address] [id number] [place] [address] Jan, [facility] [place] [facility] [address] [id number] [place] [address] Dec, [facility] [place] [facility] [address] [id number] [place] [address] Dec, [facility] [place] [facility] [address] [id number] [place] [address] Dec, [facility] [address] [id number] [place] [address] Dec, 2014 [facility] [place] [facility] [address] [facility] [id number] [place] [address] Dec, [facility] [place] [facility] [address] [id number] [place] [address] Dec, [facility] [place] [facility] [address] [id number] [place] [address] Nov, [facility] [place] [facility] [address] [id number] [place] [address] Nov, [facility] [place] [facility] [address] [id number] [place] [address] Nov, [facility] [place] [facility] [address] [id number] [place] [address] Nov, [facility] [place] [facility] [address] [id number] [place] [address] Nov, [facility] [place] [facility] [address] [id number] [place] [address] Nov, [facility] [place] [facility] [address] [id number] [place] [address] Nov, [facility] [place] [facility] [address] [id number] [place] [address] Nov, [facility] [place] [facility] [address] [id number] [place] [address] Nov, [facility] [place] [facility] [address] [id number] [place] [address] Nov, [facility] [place] [facility] [address] [id number] [place] [address] Nov, [facility] [place] [facility] [address] [id number] [place] [address] Nov, [facility] [place] [facility] [address] [id number] [place] [address] Nov, [facility] [place] [facility] [address] [id number] [place] [address] Nov, [facility] [place] [facility] [address] [id number] [place] [address] Oct, [facility] [place] [facility] [address] [id number] [place] [address] Oct, [facility] [place] [facility] [address] [id number] [place] [address] Oct, [facility] [place] [facility] [address] [id number] [place] [address] Oct, [facility] [place] [facility] [address] [id number] [place] [address] Oct, [facility] [place] [facility] [address] [id number] [place] [address] Oct, [facility] [place] [facility] [address] [id number] [place] [address] Oct, [facility] [place] [facility] [address] [id number] [place] [address] Oct, [facility] [place] [facility] [address] [id number] [place] [address] Oct, [facility] [place] [facility] [address] [id number] [place] [address] Sep, [facility] [place] [facility] [address] [id number] [place] [address] Sep, [facility] [place] [facility] [address] [id number] [place] [address] Sep, [facility] [place] [facility] [address] [id number] [place] [address] Sep, [facility] [place] [facility] [address] [id number] [place] [address] Sep, [facility] [place] [facility] [address] [id number] [place] [address] Sep, [facility] [place] [facility] [address] [id number] [place] [address] Sep, [facility] [place] [facility] [address] [id number] [place] [address] Sep, [facility] [place] [facility] [address] [id number] [place] [address] Sep, [facility] [place] [facility] [address] [id number] [place] [address] Sep, [facility] [place] [facility] [address] [id number] [place] [address] Sep, [facility] [place] [facility] [address] [id number] [place] [address] Sep, [facility] [place] [facility] [address] [id number] [place] [address] Aug, [facility] [place] [facility] [address] [id number] [place] [address] Aug, [facility] [place] [facility] [address] [id number] [place] [address] Aug, [facility] [place] [facility] [address] [id number] [place] [address] Aug, [facility] [place] [facility] [address] [id number] [place] [address] Aug, [facility] [place] [facility] [address] [id number] [place] [address] Aug, [facility] [place] [facility] [address] [id number] [place] [address] Aug, [facility] [place] [facility] [address] [id number] [place] [address] Aug, [facility] [place] [facility] [address] [id number] [place] [address] 30 Jul, 2013 [facility] [place] [facility] [address] [id number] [place] [address] 30 Jul, 2014 [facility] [place] [facility] [address] [id number] [place] [address] 30 Jul, 2013 [facility] [place] [facility] [address] [id number] [place] [address] 30 Jul, 2013 [facility] [place] [facility] [address] [id number] [place] [address] 25 Jul, 2013 [facility] [place] [facility] [address] [id number] [place] [address] Jul, [facility] [place] [facility] [address] [facility] [id number] [place] [address] Jul, [facility] [place] [facility] [address] [facility] [id number] [place] [address] 15 Jul, 2014 [facility] [place] [facility] [address] [facility] [id number] [place] [address] Jul, [facility] [place] [facility] [address] [id number] [place] [address] Jul, [facility] [place] [facility] [address] [facility] [id number] [place] [address] Jun, [facility] [place] [facility] [address] [id number] [place] [address] Jun, [facility] [place] [facility] [address] [id number] [place] [address] Jun, [facility] [place] [facility] [address] [id number] [place] [address] Jun, [facility] [place] [facility] [address] [facility] [id number] [place] [address] Jun, [facility] [place] [facility] [address] [id number] [place] [address] Jun, [facility] [place] [facility] [address] [id number] [place] [address] Jun, [facility] [place] [facility] [address] [id number] [place] [address] Jun, [facility] [place] [facility] [address] [id number] [place] [address] Jun, [facility] [place] [facility] [address] [facility] [id number] [place] [address] Jun, [facility] [place] [facility] [address] [id number] [place] [address] Jun, [facility] [place] [facility] [address] [id number] [place] [address] Jun, [facility] [place] [facility] [address] [facility] [id number] [place] [address] Jun, [facility] [place] [facility] [address] [facility] [id number] [place] [address] Jun, [facility] [place] [facility] [address] [facility] [id number] [place] [address] Jun, [facility] [place] [facility] [address] [facility] [id number] [place] [address] Jun, [facility] [place] [facility] [address] [facility] [id number] [place] [address] Jun, [facility] [place] [facility] [address] [id number] [place] [address] Jun, [facility] [place] [facility] [address] [id number] [place] [address] Jun, [facility] [place] [facility] [address] [facility] [id number] [place] [address] Jun, [facility] [place] [facility] [address] [id number] [place] [address] Jun, [facility] [place] [facility] [address] [id number] [place] [address] Jun, [facility] [place] [facility] [address] [id number] [place] [address] May, [facility] [place] [facility] [address] [facility] [id number] [place] [address] May, [facility] [place] [facility] [address] [facility] [id number] [place] [address] May, [facility] [place] [facility] [address] [facility] [id number] [place] [address] May, [facility] [place] [facility] [address] [facility] [id number] [place] [address] May, [facility] [place] [facility] [address] [id number] [place] [address] May, 2013 [facility] [place] [facility] [address] [id number] [place] [address] May, 2013 [facility] [place] [facility] [address] [facility] [id number] [place] [address] May, 2013 [facility] [place] [facility] [address] [id number] [place] [address] May, 2013 [facility] [place] [facility] [address] [facility] [id number] [place] [address] May, 2013 [facility] [place] [facility] [address] [facility] [id number] [place] [address] May, 2013 [facility] [place] [facility] [address] [facility] [id number] [place] [address] May, 2013 [facility] [place] [facility] [address] [id number] [place] [address] May, [facility] [place] [facility] [address] [id number] [place] [address] Apr, [facility] [place] [facility] [address] [id number] [place] [address] Apr, [facility] [place] [facility] [address] [id number] [place] [address] Apr, [facility] [place] [facility] [address] [id number] [place] [address] Apr, [facility] [place] [facility] [address] [id number] [place] [address] Apr, [facility] [place] [facility] [address] [facility] [id number] [place] [address] Apr, [facility] [place] [facility] [address] [id number] [place] [address] Apr, [facility] [place] [facility] [address] [facility] [id number] [place] [address] Apr, [facility] [place] [facility] [address] [id number] [place] [address] Apr, 2013 [facility] [place] [facility] [address] [facility] [id number] [place] [address] March, [facility] [place] [facility] [address] [id number] [place] [address] March, [facility] [place] [facility] [address] [facility] [id number] [place] [address] March, [facility] [place] [facility] [address] [id number] [place] [address] March, [facility] [place] [facility] [address] [id number] [place] [address] March, [facility] [place] [facility] [address] [id number] [place] [address] March, [facility] [place] [facility] [address] [id number] [place] [address] March, [facility] [place] [facility] [address] [id number] [place] [address] March, [facility] [place] [facility] [address] [id number] [place] [address] March, [facility] [place] [facility] [address] [id number] [place] [address] March, [facility] [place] [facility] [address] [id number] [place] [address] March, [facility] [place] [facility] [address] [id number] [place] [address] March, [facility] [place] [facility] [address] [id number] [place] [address] March, [facility] [place] [facility] [address] [id number] [place] [address] March, [facility] [place] [facility] [address] [id number] [place] [address] March, [facility] [place] [facility] [address] [id number] [place] [address] March, [facility] [place] [facility] [address] [id number] [place] [address] March, [facility] [place] [facility] [address] [id number] [place] [address] March, [facility] [place] [facility] [address] [id number] [place] [address] March, [facility] [place] [facility] [address] [id number] [place] [address] March, [facility] [place] [facility] [address] [id number] [place] [address] Feb, [facility] [place] [facility] [address] [facility] [id number] [place] [address] Feb, [facility] [place] [facility] [address] [id number] [place] [address] Feb, [facility] [place] [facility] [address] [id number] [place] [address] Feb, [facility] [place] [facility] [address] [id number] [place] [address] Feb, [facility] [place] [facility] [address] [id number] [place] [address] Feb, [facility] [place] [facility] [address] [id number] [place] [address] Feb, [facility] [place] [facility] [address] [id number] [place] [address] Feb, [facility] [address] [id number] [place] [address] Jan, [facility] [address] [id number] [place] [address] Jan, [facility] [address] [id number] [place] [address] Jan, [facility] [address] [id number] [place] [address] Jan, [facility] [address] [id number] [place] [address] Jan, [facility] [address] [id number] [place] [address] Jan, [facility] [address] [facility] [id number] [place] [address] Jan, [facility] [address] [id number] [place] [address] Jan, [facility] [address] [id number] [place] [address] Jan, [facility] [address] [id number] [place] [address] Jan, [facility] [address] [id number] [place] [address] Dec, [facility] [address] [id number] [place] [address] Dec, [facility] [address] [id number] [place] [address] Dec, [facility] [address] [id number] [place] [address] Dec, [facility] [address] [id number] [place] [address] Dec, [facility] [address] [id number] [place] [address] Dec, [facility] [address] [id number] [place] [address] Dec, [facility] [address] [id number] [place] [address] Dec, [facility] [address] [id number] [place] [address] Nov, [facility] [address] [id number] [place] [address] Nov, [facility] [address] [id number] [place] [address] Nov, [facility] [address] [id number] [place] [address] Nov, [facility] [address] [id number] [place] [address] Nov, [facility] [address] [id number] [place] [address] Nov, [facility] [address] [id number] [place] [address] Nov, [facility] [address] [id number] [place] [address] Nov, [facility] [address] [id number] [place] [address] Nov, [facility] [address] [id number] [place] [address] Nov, [facility] [address] [id number] [place] [address] Nov, [facility] [address] [id number] [place] [address] Nov, [facility] [address] [id number] [place] [address] Nov, [facility] [address] [id number] [place] [address] Oct, [facility] [address] [id number] [place] [address] Oct, [facility] [address] [id number] [place] [address] Oct, [facility] [address] [id number] [place] [address] Oct, [facility] [address] [id number] [place] [address] Oct, [facility] [address] [id number] [place] [address] Oct, [facility] [address] [id number] [place] [address] Oct, [facility] [address] [id number] [place] [address] 18 Oct, 2012 [facility] [address] [id number] [place] [address] Oct, [facility] [facility] [address] [id number] [place] [address] Oct, [facility] [address] [id number] [place] [address] Oct, [facility] [address] [id number] [place] [address] Oct, [facility] [address] [id number] [place] [address] Oct, [facility] [address] [id number] [place] [address] Oct, [facility] [address] [id number] [place] [address] 14 Sep, 2013 [facility] [address] [id number] [place] [address] 14 Sep, 2013 [facility] [address] [id number] [place] [address] 05 Sep, 2013 [facility] [address] [id number] [place] [address] Sep, [facility] [address] [id number] [place] [address] Sep, [facility] [address] [id number] [place] [address] Sep, [facility] [address] [id number] [place] [address] Sep, [facility] [address] [id number] [place] [address] Sep, [facility] [address] [id number] [place] [address] Sep, [facility] [address] [id number] [place] [address] Sep, [facility] [address] [id number] [place] [address] 24 Aug, 2012 [facility] [address] [facility] [id number] [place] [address] 24 Aug, 2012 [facility] [address] [id number] [place] [address] 24 Aug, 2012 [facility] [address] [id number] [place] [address] 24 Aug, 2012 [facility] [address] [id number] [place] [address] 23 Aug, 2012 [facility] [address] [facility] [id number] [place] [address] 23 Aug, 2012 [facility] [address] [id number] [place] [address] 23 Aug, 2012 [facility] [address] [id number] [place] [address] 23 Aug, 2012 [facility] [address] [id number] [place] [address] 22 Aug, 2012 [facility] [address] [id number] [place] [address] 22 Aug, 2012 [facility] [address] [id number] [place] [address] 18 Aug, 2012 [facility] [address] [id number] [place] [address] 18 Aug, 2012 [facility] [address] [id number] [place] [address] 18 Aug, 2012 [facility] [address] [facility] [id number] [place] [address] 18 Aug, 2012 [facility] [address] [id number] [place] [address] 17 Aug, 2012 [facility] [address] [id number] [place] [address] 14 Aug, 2012 [facility] [address] [id number] [place] [address] 14 Aug, 2013 [facility] [address] [id number] [place] [address] 01 Aug, 2013 [facility] [address] [facility] [id number] [place] [address] 20 Jul, 2013 [facility] [address] [facility] [id number] [place] [address] 19 Jul, 2012 [facility] [address] [facility] [id number] [place] [address] 18 Jul, 2013 [facility] [address] [facility] [id number] [facility] [address] 11 Jul, 2013 [facility] [address] [id number] [place] [address] Jul, [facility] [address] [id number] [place] [address] Jun, [facility] [address] [id number] [place] [address] Jun, [facility] [address] [id number] [place] [address] Jun, [facility] [address] [id number] [place] [address] 15 Jun, 2013 [facility] [address] [id number] [place] [address] Jun, [facility] [address] [id number] [place] [address] Jun, [facility] [address] [id number] [place] [address] Jun, [facility] [address] [id number] [place] [address] Jun, [facility] [address] [facility] [id number] [place] [address] Jun, [facility] [address] [id number] [place] [address] Jun, [facility] [address] [id number] [place] [address] May, [facility] [address] [facility] [id number] [facility] [address] May, [facility] [address] [facility] [id number] [place] [address] May, [facility] [address] [id number] [place] [address] May, [facility] [address] [facility] [id number] [facility] [address] May, [facility] [address] [facility] [id number] [facility] [address] May, [facility] [address] [facility] [id number] [place] [address] May, [facility] [address] [id number] [place] [address] May, [facility] [address] [id number] [place] [address] May, [facility] [address] [id number] [place] [address] Apr, [facility] [address] [id number] [place] [address] Apr, [facility] [address] [id number] [place] [address] Apr, [facility] [address] [id number] [place] [address] Apr, [facility] [address] [facility] [id number] [place] [address] Apr, [facility] [address] [id number] [place] [address] Apr, [facility] [address] [id number] [place] [address] Apr, [facility] [address] [id number] [place] [address] March, [facility] [address] [id number] [place] [address] 26 Feb, 2013 [facility] [address] [facility] [id number] [place] [address] 25 Feb, 2013 [facility] [address] [id number] [place] [address] 12 Feb, 2013 [facility] [address] [id number] [place] [address] 28 Jan, 2013 [facility] [address] [id number] [place] [address] Jan, [facility] [address] [facility] [id number] [place] [address] Jan, [facility] [address] [id number] [place] [address] 14 Jan, 2013 [facility] [address] [id number] [place] [address] Jan, [facility] [address] [id number] [place] [address] 08 Jan, 2013 [facility] [address] [id number] [place] [address] Jan, [facility] [address] [id number] [place] [address] 04 Jan, 2013 [facility] [address] [id number] [place] [address] Dec, [facility] [address] [id number] [place] [address] Dec, [facility] [address] [facility] [id number] [place] [address] 13 Dec, 2012 [facility] [address] [id number] [place] [address] 11 Dec, 2012 [facility] [address] [id number] [place] [address] 07 Dec, 2012 [facility] [address] [id number] [place] [address] 06 Dec, 2012 [facility] [address] [id number] [place] [address] 05 Dec, 2012 [facility] [address] [id number] [place] [address] Nov, [facility] [address] [id number] [place] [address] 24 Nov, 2012 [facility] [address] [id number] [place] [address] Nov, [facility] [address] [id number] [place] [address] 15 Nov, 2012 [facility] [address] [id number] [place] [address] Nov, [facility] [address] [id number] [place] [address] Nov, [facility] [address] [id number] [place] [address] Nov, [facility] [address] [id number] [place] [address] Oct, [facility] [address] [id number] [place] [address] Oct, [facility] [address] [id number] [place] [address] Oct, [facility] [address] [id number] [place] [address] Oct, [facility] [address] [id number] [place] [address] Oct, [facility] [address] [id number] [place] [address] Oct, [facility] [address] [id number] [place] [address] Oct, [facility] [address] [id number] [place] [address] Oct, [facility] [address] [id number] [place] [address] Oct, [facility] [address] [id number] [place] [address] Oct, [facility] [address] [id number] [place] [address] Oct, [facility] [address] [id number] [place] [address] Oct, [facility] [address] [id number] [place] [address] Sep, [facility] [address] [id number] [place] [address] Sep, [facility] [id number] [place] [address] Sep, [facility] [id number] [place] [address] Sep, [facility] [id number] [place] [address] Sep, [facility] [address] [id number] [place] [address] Sep, [facility] [id number] [place] [address] Sep, [facility] [address] [id number] [place] [address] Sep, [facility] [id number] [place] [address] Sep, [facility] [address] [id number] [place] [address] Sep, [facility] [id number] [place] [address] Sep, [facility] [address] [id number] [place] [address] Aug, [facility] [address] [id number] [place] [address] Aug, [facility] [address] [id number] [place] [address] Aug, [facility] [address] [id number] [place] [address] Aug, [facility] [address] [id number] [place] [address] Aug, [facility] [address] [id number] [place] [address] Aug, [facility] [address] [id number] [place] [address] Aug, [facility] [address] [id number] [place] [address] Aug, [facility] [address] [id number] [place] [address] Aug, [facility] [address] [id number] [place] [address] Aug, [facility] [address] [id number] [place] [address] 22 Jul, 2012 [facility] [address] [id number] [place] [address] 20 Jul, 2012 [facility] [address] [id number] [place] [address] 10 Jul, 2012 [facility] [address] [id number] [place] [address] 06 Jul, 2012 [facility] [address] [id number] [place] [address] 30 Jun, 2012 [facility] [address] [id number] [place] [address] Jun, [facility] [address] [id number] [place] [address] 16 Jun, 2012 [facility] [address] [id number] [place] [address] Jun, [facility] [address] [id number] [place] [address] Jun, [facility] [address] [facility] [id number] [place] [address] Jun, [facility] [address] [facility] [id number] [facility] [address] Jun, [facility] [address] [id number] [place] [address] May, [facility] [address] [id number] [facility] [address] May, [facility] [address] [facility] [id number] [facility] [address] May, [facility] [address] [id number] [place] [address] May, [facility] [address] [id number] [place] [address] May, [facility] [address] [id number] [place] [address] Apr, [facility] [address] [id number] [place] [address] Apr, [facility] [address] [id number] [place] [address] Apr, [facility] [address] [id number] [place] [address] Apr, [facility] [address] [id number] [place] [address] Apr, [facility] [address] [facility] [id number] [place] [address] March, [facility] [address] [facility] [id number] [place] [address] March, [facility] [address] [id number] [place] [address] March, [facility] [address] [id number] [place] [address] March, [facility] [address] [id number] [place] [address] March, [facility] [address] [id number] [place] [address] March, [facility] [address] [id number] [place] [address] March, [facility] [address] [id number] [place] [address] March, [facility] [address] [id number] [place] [address] March, [facility] [address] [id number] [place] [address] March, [facility] [address] [id number] [place] [address] Feb, [facility] [address] [id number] [place] [address] Feb, [facility] [address] [id number] [place] [address] Feb, [facility] [address] [id number] [place] [address] Feb, [facility] [address] [id number] [place] [address] Feb, [facility] [address] [id number] [place] [address] Feb, [facility] [address] [id number] [place] [address] Feb, [facility] [address] [id number] [place] [address] Feb, [facility] [address] [id number] [place] [address] Feb, [facility] [address] [id number] [place] [address] Jan, [facility] [address] [id number] [place] [address] Jan, [facility] [address] [id number] [place] [address] Jan, [facility] [address] [id number] [place] [address] Jan, [facility] [address] [id number] [place] [address] Dec, [facility] [address] [id number] [place] [address] Dec, [facility] [address] [id number] [place] [address] Nov, [facility] [address] [id number] [place] [address] Nov, [facility] [address] [id number] [place] [address] Nov, [facility] [id number] [place] [address] Nov, [facility] [address] [id number] [place] [address] Nov, [facility] [address] [id number] [place] [address] Oct, [facility] [address] [id number] [place] [address] Oct, [facility] [address] [id number] [place] [address] Oct, [facility] [address] [id number] [place] [address] Oct, [facility] [address] [id number] [place] [address] Oct, [facility] [address] [id number] [place] [address] Oct, [facility] [address] [id number] [place] [address] Oct, [facility] [address] [id number] [place] [address] Oct, [facility] [address] [facility] [id number] [place] [address] Sep, IMMUNIZATIONS No Known Immunizations SOCIAL HISTORY [...] History No Surgical history information Hospitalization History [facility]- Urosepsis, ab d pain and fever, discharged 11/27/2017 11/26/2017 Hospitalization History [facility]- Went Unrepsonsive, Hit head 2017 Hospitalization History [facility]- Back Pain 8
--- OUTSIDE RECORDS SUMMARY | 2020-06-18 14:54 | XMS REPORT ---
Author Author Sanjuanita Abdul Doctor Organization [facility] Address Unknown Phone Unavailable Care Team Providers Care Health Safety And Environment Manager Name Role Phone Migration, Doctor Unavailable Unavailable PROBLEMS Type Condition ICD9-CM Code KDK46-PO Code Onset Dates Condition S tatus SNOMED Code Problem Hypertension I10 Active 8566542 3 Problem Hyperlipidemia E78.5 Active 57680 004 Problem Coronary artery disease I25.10 Active 67960077 Problem Low back pain M54.5 Active 135974 009 Problem Other chronic pain G89.29 Active 8 8938081 Problem Ventral hernia without obstruction or gangrene K43 .9 Active 953562209 Problem Type 2 diabetes mellitus wit hout complication, without long-term current use of insulin E11.9 Active 852515951 Problem Anxiety F41.9 Active 20610299 Problem Peripheral vascular disease I73.9 Ac tive 388635659 Problem Insomnia G47.00 Active 007292254 Problem Microcytic anemia D50.9 Active 23 2075553 Problem Pharyngeal dysphagia R13.13 Active 98432288306688 Problem Other iron deficiency anemia D50.8 A ctive 11828662 Problem Reactive depression F32.9 Active 85479333 Problem Paroxysmal atrial fibrillation I48.0 Active 442787207 Problem 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 Active 25358999 Problem Encounter for suprapubic catheter care Z43.5 Active 111803781 Problem Neurogenic bladder N31.9 Active 3 [id number] ALLERGIES No Information ENCOUNTERS Encounter Location Date Diagnosis [facility] [address] [place] [id number] Jan, Neurogenic bladder N31.9 [facility] [id number] [place] [address] Dec, [facility] [address] [id number] [place] [address] Dec, [facility] [address] [id number] [place] [address] Dec, Anxiety F41.9 and Strain of right should er, subsequent encounter S46.911D [place] [address] [address] 10 Dec, 2019 Other iron deficiency anemia D50.8 [facility] [address] [address] 04 Dec, 2019 [facility] [address] [place] [address] 04 Dec, 2019 Encounter for suprapubic catheter care Z 43.5 and Microcytic anemia D50.9 [place] [address] [address] Dec, [place] [address] [address] Nov, Anxiety F41.9 and Strain of right should er, subsequent encounter S46.911D [place] [address] [address] Nov, Hypertension I10 [facility] [address] [place] [id number] Nov, Pneumonia of both lungs due to infectiou s organism, unspecified part of lung J18.9 and Suprapubic catheter Z93.59 [place] [address] [address] Nov, Hypertension I10 and Reactive depression F32.9 [place] [address] [address] Oct, Strain of right shoulder, subsequent enc ounter S46.911D and Anxiety F41.9 [place] [address] [address] Oct, [facility] [address] [place] [id number] Oct, Suprapubic catheter Z93.59 and Candidias is, intertriginous B37.2 [place] [address] [address] Oct, Suprapubic catheter Z93.59 [facility] [address] [id number] [place] [address] Oct, Anxiety F41.9 and Strain of right should er, subsequent encounter S46.911D [facility] [address] [id number] [place] [address] Sep, [facility] [address] [id number] [place] [address] Sep, [facility] [address] [id number] [place] [address] Sep, [facility] [address] [place] [id number] Sep, Suprapubic catheter Z93.59 [facility] [address] [id number] [place] [address] Sep, Anxiety F41.9 and Strain of right should er, subsequent encounter S46.911D [facility] [address] [id number] [place] [address] Aug, [facility] [address] [id number] [place] [address] Aug, [facility] [address] [id number] [place] [address] Aug, Anxiety F41.9 and Strain of right should er, subsequent encounter S46.911D [facility] [address] [place] [id number] Aug, Suprapubic catheter Z93.59 [facility] [address] [id number] [place] [address] Jul, Strain of right shoulder, subsequent enc ounter S46.911D and Anxiety F41.9 [facility] [address] [id number] [place] [address] Jul, Anxiety F41.9 [facility] [address] [id number] [place] [address] Jun, [place] [id number] [place] [address] Jun, [facility] [id number] [place] [address] Jun, [place] [id number] [place] [address] Jun, Strain of right shoulder, subsequent enc ounter S46.911D [place] [id number] [place] [address] Jun, Strain of right shoulder, subsequent enc ounter S46.911D [place] [address] [address] Jun, Anxiety F41.9 [facility] [address] [place] [id number] Jun, Neurogenic bladder N31.9 and Anxiety F41 .9 [facility] [address] [place] [address] May, Anxiety F41.9 [place] [id number] [place] [address] May, Dysuria R30.0 [place] [facility] [id number] [place] [address] May, Strain of right shoulder, subsequent enc ounter S46.911D and Anxiety F41.9 [place] [id number] [place] [address] Apr, [facility] [address] [place] [address] Apr, Strain of right shoulder, subsequent enc ounter S46.911D [place] [id number] [place] [address] Apr, Strain of right shoulder, subsequent enc ounter S46.911D and Anxiety F41.9 [facility] [address] [place] [address] Apr, Type 2 diabetes mellitus without complic ation, without long-term current use of insulin E11.9 and Neurogenic bladder N31.9 [facility] [address] [place] [address] Apr, Strain of right shoulder, subsequent enc ounter S46.911D ; History of GI bleed Z87.19 ; Neurogenic bladder N31.9 and Reactive depression F32.9 [place] [address] [address] 10 Apr, 2019 Acute pain of left shoulder M25.512 [place] [address] [address] Apr, [place] [address] [address] Apr, Anxiety F41.9 and Other chronic pain G89 .29 [facility] [address] [place] [id number] March, Gastrointestinal hemorrhage associated w ith acute gastritis K29.01 [place] [address] [address] March, [facility] [address] [place] [address] March, Bronchitis J40 [place] [address] [address] March, Cough R05 [place] [address] [address] March, Other chronic pain G89.29 [place] [address] [address] March, Anxiety F41.9 [place] [address] [address] March, [place] [address] [address] Feb, Other chronic pain G89.29 [place] [address] [address] Feb, Anxiety F41.9 [facility] [address] [address] Feb, Other chronic pain G89.29 [facility] [address] [place] [address] Feb, Neurogenic bladder N31.9 and Suprapubic catheter Z93.59 [facility] [address] [address] Jan, Anxiety F41.9 [facility] [address] [address] Dec, Anxiety F41.9 [facility] [address] [address] Dec, Other chronic pain G89.29 and Anxiety F4 1.9 [facility] [address] [address] Dec, [facility] [address] [place] [address] Dec, Neurogenic bladder N31.9 and Suprapubic catheter Z93.59 [place] [address] [address] Nov, Other chronic pain G89.29 and Anxiety F4 1.9 [facility] [address] [address] Nov, [facility] [address] [place] [address] Nov, Suprapubic catheter Z93.59 [facility] [address] [address] Oct, Other chronic pain G89.29 and Anxiety F4 1.9 [facility] [address] [address] Oct, [facility] [address] [address] Oct, Suprapubic catheter Z93.59 [place] [address] [address] Oct, [facility] [address] [place] [id number] Oct, [place] [address] [address] Oct, Anxiety F41.9 [place] [address] [address] Oct, Anxiety F41.9 [facility] [address] [place] [address] Oct, Other chronic pain G89.29 [place] [address] [address] Sep, Other chronic pain G89.29 [facility] [address] [place] [address] Sep, Suprapubic catheter Z93.59 and Cervicalg ia M54.2 [place] [address] [address] Sep, [place] [address] [address] Sep, [place] [address] [address] Sep, [facility] [address] [place] [address] Aug, Cystitis N30.90 [place] [address] [address] Aug, [place] [address] [address] Aug, Other chronic pain G89.29 [place] [address] [address] Aug, [facility] [address] [place] [address] Aug, Encounter for suprapubic catheter care Z 43.5 [place] [id number] [place] [address] Jul, [facility] [address] [place] [address] Jul, [facility] [address] [address] Jul, Other chronic pain G89.29 [place] [address] [address] Jul, [place] [address] [address] Jul, [facility] [address] [place] [address] Jun, 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 [place] [address] [address] Jun, Other chronic pain G89.29 [place] [address] [address] Jun, [facility] [address] [place] [address] May, Anxiety F41.9 ; Type 2 diabetes mellitus without complication, without long-term current use of insulin E11.9 ; Hypertension I10 ; Low back pain M54.5 ; Paroxysmal atrial fibrillation I48.0 and 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 [place] [address] [address] May, Other chronic pain G89.29 [facility] [address] [place] [address] May, Low back pain M54.5 [place] [address] [address] May, [place] [address] [address] Apr, Other chronic pain G89.29 [address] [address] [address] Apr, [facility] [address] [address] Apr, [facility] [address] [place] [id number] Apr, Closed compression fracture of L3 lumbar vertebra with routine healing, subsequent encounter S32.030D [facility] [address] [place] [id number] 14 Apr, 2018 Low back pain M54.5 [facility] [address] [place] [address] Apr, Coccydynia M53.3 [facility] [address] [address] March, [facility] [address] [address] March, Other chronic pain G89.29 [facility] [address] [address] March, [facility] [address] [address] March, [facility] [address] [address] Feb, [facility] [address] [address] Feb, Other chronic pain G89.29 [facility] [address] [place] [address] Feb, Other chronic pain G89.29 and Anxiety F4 1.9 [facility] [address] [address] Feb, [facility] [address] [address] Jan, [facility] [address] [address] 20 Jan, 2018 [facility] [address] [address] 13 Jan, 2018 [facility] [address] [id number] [place] [address] Jan, [facility] [address] [address] Dec, [facility] [address] [place] [address] Dec, Peripheral vascular disease I73.9 ; 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 ; Other chronic pain G89.29 ; Anxiety F41.9 ; Reactive depression F32.9 ; Insomnia G47.00 and Type 2 diabetes mellitus without complication, without long-term current use of insulin E11.9 [facility] [id number] [place] [address] Nov, [address] [address] [id number] [address] Nov, Anxiety F41.9 [address] [id number] [place] [address] Nov, [address] [id number] [place] [address] Nov, Anxiety F41.9 [facility] [address] [place] [address] Nov, Status post surgery Z98.890 ; Confused R 41.0 ; Anxiety F41.9 and Other chronic pain G89.29 [facility] [address] [id number] [place] [address] Nov, Other chronic pain G89.29 [facility] [address] [id number] [place] [address] Oct, [address] [address] [id number] [place] [address] Oct, Other chronic pain G89.29 [place] [address] [id number] [place] [address] Oct, Anxiety F41.9 [address] [address] [id number] [place] [address] Sep, Other chronic pain G89.29 [facility] [address] [id number] [place] [address] Sep, [facility] [address] [place] [address] Aug, Dysuria R30.0 and Anxiety F41.9 [facility] [address] [address] Aug, [facility] [address] [id number] [place] [address] Aug, Other chronic pain G89.29 [facility] [address] [address] Jul, Other chronic pain G89.29 [facility] [address] [id number] [place] [address] Jun, [facility] [address] [id number] [place] [address] Jun, Other chronic pain G89.29 [facility] [address] [address] Jun, [facility] [address] [address] May, Other chronic pain G89.29 [facility] [address] [address] Apr, Other chronic pain G89.29 [facility] [address] [place] [address] Apr, Reactive depression F32.9 and Pharyngeal dysphagia R13.13 [facility] [address] [address] Apr, Urinary tract infection without hematuri a, site unspecified N39.0 [facility] [address] [address] March, Other chronic pain G89.29 [facility] [address] [address] Feb, Other chronic pain G89.29 [facility] [address] [address] Feb, [place] [address] [id number] [place] [facility] [address] Feb, [facility] [address] [place] [address] Feb, Dysuria R30.0 and Ventral hernia without obstruction or gangrene K43.9 [place] [address] [address] Jan, Other chronic pain G89.29 [address] [address] [id number] [place] [facility] [place] [address] Dec, Other chronic pain G89.29 [place] [address] [address] Nov, Other chronic pain G89.29 [facility] [address] [place] [address] Nov, Lymphadenitis I88.9 [place] [address] [address] Nov, Other chronic pain G89.29 [place] [address] [address] Nov, [place] [address] [id number] [place] [address] Nov, Other chronic pain G89.29 [facility] [address] [place] [address] Oct, Low back pain M54.5 ; Hypertension I10 a nd Type 2 diabetes mellitus without complication, without long-term current use of insulin E11.9 [place] [address] [address] Oct, [place] [address] [address] Oct, [facility] [address] [id number] [place] [address] Oct, [facility] [address] [id number] [place] [address] Oct, [facility] [id number] [place] [address] Sep, [facility] [id number] [place] [address] Sep, [facility] [address] [id number] [place] [address] Aug, Other chronic pain G89.29 [facility] [id number] [place] [address] Jul, [facility] [id number] [place] [address] Jul, [facility] [id number] [place] [address] Jul, [facility] [id number] [place] [address] Jun, [facility] [id number] [place] [address] Jun, [facility] [address] [place] [address] Jun, Low back pain M54.5 ; Other chronic pain G89.29 and Coronary artery disease I25.10 [facility] [id number] [place] [address] Jun, [facility] [id number] [place] [address] May, [facility] [id number] [place] [address] May, [facility] [id number] [place] [address] May, Other chronic pain G89.29 [facility] [id number] [place] [address] May, [facility] [address] [address] Apr, [facility] [address] [address] Apr, Acute cystitis without hematuria N30.00 [facility] [address] [address] 16 Apr, 2016 Acute cystitis without hematuria N30.00 ; Coronary artery disease I25.10 ; Low back pain M54.5 and Other chronic pain G89.29 [facility] [address] [address] Apr, Other chronic pain G89.29 [facility] [address] [address] March, Other chronic pain G89.29 [facility] [address] [address] Feb, [facility] [address] [address] Feb, Arthritis M19.90 [facility] [address] [address] Feb, [facility] [address] [address] Jan, [facility] [address] [address] Jan, [facility] [address] [address] Jan, Other chronic pain G89.29 [facility] [address] [address] Jan, Hypertension I10 ; Coronary artery disea se I25.10 and Insomnia G47.00 [facility] [address] [address] Jan, [facility] [id number] [place] [address] Dec, Right hip pain M25.551 [facility] [id number] [place] [address] Dec, [facility] [id number] [place] [address] Dec, [facility] [id number] [place] [address] Dec, [facility] [id number] [place] [address] Dec, Other chronic pain G89.29 [facility] [id number] [place] [address] Dec, [facility] [address] [address] Nov, [facility] [id number] [place] [address] Nov, Other chronic pain G89.29 [facility] [id number] [place] [address] Nov, Right hip pain M25.551 and Coronary karissa ry disease I25.10 [facility] [id number] [place] [address] Nov, Other chronic pain G89.29 [facility] [id number] [place] [address] Oct, [facility] [address] [address] Oct, [facility] [address] [address] Sep, [facility] [address] [address] Sep, [facility] [address] [address] Aug, [facility] [id number] [place] [address] Aug, Hypertension I10 ; Coronary artery disea se I25.10 and Arthritis M19.90 [facility] [id number] [place] [address] Jun, [facility] [address] [address] Jun, Essential hypertension, benign 401.1 ; O ther chronic pain 338.29 and Chronic airway obstruction, not elsewhere classified 496 [facility] [id number] [place] [address] Jun, [facility] [address] [address] Jun, [facility] [id number] [place] [address] Jun, [facility] [id number] [place] [address] May, [facility] [address] [address] May, [facility] [id number] [place] [address] Apr, [facility] [id number] [place] [address] Apr, [facility] [id number] [place] [address] Apr, [facility] [id number] [place] [address] March, [facility] [id number] [place] [address] March, [facility] [id number] [place] [address] March, [facility] [address] [address] March, [facility] [address] [id number] [place] [address] March, Sialadenitis 527.2 [facility] [address] [id number] [facility] [place] [address] Feb, [facility] [address] [id number] [place] [address] Feb, [facility] [address] [id number] [place] [address] Feb, [facility] [address] [id number] [place] [address] Feb, [facility] [address] [id number] [place] [address] Feb, [facility] [address] [id number] [place] [address] Jan, [facility] [address] [id number] [place] [address] Jan, [facility] [address] [id number] [place] [address] Jan, [facility] [address] [id number] [place] [address] Jan, [facility] [address] [id number] [place] [address] Jan, [facility] [facility] [address] [id number] [place] [address] Jan, [facility] [address] [id number] [place] [address] Dec[facility] [address] [id number] [place] [address] Dec, [facility] [address] [id number] [place] [address] Dec, [facility] [address] [id number] [place] [address] Dec, [facility] [address] [id number] [place] [address] Dec, [facility] [address] [facility] [id number] [place] [address] Dec, [facility] [address] [id number] [place] [address] Nov, [facility] [address] [id number] [place] [address] Nov, [facility] [address] [id number] [place] [address] Nov, [facility] [address] [id number] [place] [address] Nov, [facility] [address] [id number] [place] [address] Nov, [facility] [address] [id number] [place] [address] Nov, [facility] [address] [id number] [place] [address] Nov, [facility] [address] [id number] [place] [address] Nov, [facility] [address] [id number] [place] [address] Nov, [facility] [address] [id number] [place] [address] Nov, [facility] [address] [id number] [place] [address] Nov, [facility] [address] [id number] [place] [address] Nov, [facility] [address] [id number] [place] [address] Nov, [facility] [address] [id number] [place] [address] Nov, [facility] [address] [id number] [place] [address] Oct, [facility] [address] [id number] [place] [address] Oct, [facility] [address] [id number] [place] [address] Oct, [facility] [address] [id number] [place] [address] Oct, [facility] [address] [id number] [place] [address] Oct, [facility] [address] [facility] [id number] [place] [address] Oct, [facility] [address] [id number] [place] [address] Oct, [facility] [address] [id number] [place] [address] Oct, [facility] [address] [id number] [place] [address] Oct, [facility] [address] [id number] [place] [address] Sep, [facility] [address] [id number] [place] [address] Sep, [facility] [address] [id number] [place] [address] Sep, [facility] [address] [id number] [place] [address] Sep, [facility] [address] [id number] [place] [address] Sep, [facility] [address] [id number] [place] [address] Sep, [facility] [address] [id number] [place] [address] Sep, [facility] [address] [id number] [place] [address] Sep, [facility] [address] [id number] [place] [address] Sep, [facility] [address] [facility] [id number] [place] [address] Sep, [facility] [address] [id number] [place] [address] Sep, [facility] [address] [id number] [place] [address] Sep, [facility] [address] [id number] [place] [address] Aug, [facility] [address] [id number] [place] [address] Aug, [facility] [address] [id number] [place] [address] Aug, [facility] [address] [id number] [place] [address] Aug, [facility] [address] [id number] [place] [address] Aug, [facility] [address] [id number] [place] [address] Aug, [facility] [address] [id number] [place] [address] Aug, [facility] [address] [id number] [place] [address] Aug, [facility] [address] [id number] [place] [address] 30 Jul, 2013 [facility] [address] [id number] [place] [address] 30 Sep, 2013 [facility] [address] [id number] [place] [address] 30 Sep, 2013 [facility] [address] [id number] [place] [address] 30 Sep, 2013 [facility] [address] [id number] [place] [address] 25 Jul, 2013 [facility] [address] [id number] [facility] [place] [address] 25 Jul, 2014 [facility] [address] [id number] [place] [address] Jul, [facility] [address] [facility] [id number] [place] [address] Jul, [facility] [address] [facility] [id number] [place] [address] Jul, [facility] [address] [facility] [id number] [place] [address] Jul, [facility] [address] [facility] [id number] [place] [address] Jun, [facility] [address] [id number] [place] [address] Jun, [facility] [address] [id number] [place] [address] Jun, [facility] [address] [id number] [place] [address] Jun, [facility] [address] [facility] [id number] [place] [address] Jun, [facility] [address] [id number] [place] [address] Jun, [facility] [address] [id number] [place] [address] Jun, [facility] [address] [facility] [id number] [place] [address] Jun, [facility] [address] [id number] [place] [address] Jun, [facility] [address] [id number] [place] [address] Jun, [facility] [address] [facility] [id number] [place] [address] Jun, [facility] [address] [id number] [place] [address] Jun, [facility] [address] [id number] [place] [address] Jun, [facility] [address] [facility] [id number] [facility] [place] [address] Jun, [facility] [address] [facility] [id number] [place] [address] Jun, [facility] [address] [id number] [facility] [place] [address] Jun, [facility] [address] [facility] [id number] [facility] [place] [address] Jun, [facility] [address] [facility] [id number] [place] [address] Jun, [facility] [address] [facility] [id number] [place] [address] Jun, [facility] [address] [id number] [place] [address] Jun, [facility] [address] [facility] [id number] [facility] [place] [address] Jun, [facility] [address] [id number] [place] [address] Jun, [facility] [address] [id number] [place] [address] May, [facility] [address] [id number] [place] [address] May, [facility] [address] [facility] [id number] [place] [address] May, [facility] [address] [id number] [place] [address] May, [facility] [address] [facility] [id number] [place] [address] May, [facility] [address] [id number] [place] [address] May, [facility] [address] [id number] [facility] [place] [address] May, 2013 [facility] [address] [facility] [id number] [facility] [place] [address] May, 2013 [facility] [address] [facility] [id number] [facility] [place] [address] May, [facility] [address] [id number] [facility] [place] [address] May, [facility] [address] [facility] [id number] [facility] [place] [address] May, [facility] [address] [facility] [id number] [facility] [place] [address] May, [facility] [address] [facility] [id number] [facility] [place] [address] May, [facility] [address] [id number] [facility] [place] [address] Apr, [facility] [address] [id number] [facility] [place] [address] Apr, [facility] [address] [facility] [id number] [facility] [place] [address] Apr, [facility] [address] [id number] [facility] [place] [address] Apr, [facility] [address] [id number] [place] [address] Apr, [facility] [address] [id number] [facility] [place] [address] Apr, [facility] [address] [facility] [id number] [facility] [place] [address] Apr, [facility] [address] [id number] [place] [address] Apr, [facility] [address] [facility] [id number] [facility] [place] [address] Apr, [facility] [address] [id number] [facility] [place] [address] March, [facility] [address] [id number] [place] [address] March, [facility] [address] [id number] [place] [address] March, [facility] [address] [id number] [place] [address] March, [facility] [address] [id number] [place] [address] March, [facility] [address] [id number] [place] [address] March, [facility] [address] [id number] [place] [address] March, [facility] [address] [id number] [place] [address] March, [facility] [address] [id number] [place] [address] March, [facility] [address] [id number] [place] [address] March, [facility] [address] [id number] [place] [address] March, [facility] [address] [id number] [place] [address] March, [facility] [address] [id number] [place] [address] March, [facility] [address] [id number] [place] [address] March, [facility] [address] [id number] [place] [address] March, [facility] [address] [id number] [place] [address] March, [facility] [address] [id number] [place] [address] March, [facility] [address] [id number] [place] [address] March, [facility] [address] [facility] [id number] [place] [address] March, [facility] [address] [id number] [place] [address] March, [facility] [address] [id number] [place] [address] Feb, [facility] [address] [id number] [place] [address] Feb, [facility] [address] [facility] [id number] [place] [address] Feb, [facility] [address] [id number] [place] [address] Feb, [facility] [address] [id number] [place] [address] Feb, [facility] [address] [id number] [place] [address] Feb, [facility] [address] [id number] [place] [address] Feb, [facility] [address] [id number] [place] [address] Feb, [facility] [address] [id number] [place] [address] Jan, [facility] [address] [id number] [place] [address] Jan, [facility] [address] [id number] [place] [address] Jan, [facility] [address] [id number] [place] [address] 24 Jan, 2014 [facility] [address] [id number] [place] [address] Jan, [facility] [address] [id number] [place] [address] Jan, [facility] [address] [id number] [place] [address] Jan, [facility] [address] [facility] [id number] [place] [address] Jan, [facility] [address] [facility] [id number] [place] [address] Jan, [facility] [address] [id number] [place] [address] Jan, [facility] [address] [id number] [place] [address] Dec, [facility] [address] [id number] [place] [address] Dec, [facility] [address] [id number] [place] [address] Dec, [facility] [address] [id number] [place] [address] Dec, [facility] [address] [id number] [place] [address] Dec, [facility] [address] [id number] [place] [address] Dec, [facility] [address] [id number] [place] [address] Dec, [facility] [address] [id number] [place] [address] Dec, [facility] [address] [id number] [place] [address] Nov, [facility] [address] [id number] [place] [address] Nov, [facility] [address] [id number] [place] [address] Nov, [facility] [address] [id number] [place] [address] Nov, [facility] [address] [id number] [place] [address] Nov, [facility] [address] [id number] [place] [address] Nov, [facility] [address] [id number] [place] [address] Nov, [facility] [address] [id number] [place] [address] Nov, [facility] [address] [id number] [place] [address] Nov, [facility] [address] [id number] [place] [address] Nov, [facility] [address] [id number] [place] [address] Nov, [facility] [address] [id number] [place] [address] Nov, [facility] [address] [id number] [place] [address] Nov, [facility] [address] [id number] [place] [address] Oct, [facility] [address] [id number] [place] [address] Oct, [facility] [address] [id number] [place] [address] Oct, [facility] [address] [id number] [place] [address] Oct, [facility] [address] [id number] [place] [address] Oct, [facility] [address] [id number] [place] [address] Oct, [facility] [address] [id number] [place] [address] Oct, [facility] [address] [id number] [place] [address] Oct, [facility] [address] [id number] [place] [address] 17 Oct, 2013 [facility] [address] [id number] [place] [address] Oct, [facility] [address] [id number] [place] [address] Oct, [facility] [address] [facility] [address] [id number] [place] [address] Oct, [facility] [address] [id number] [place] [address] Oct, [facility] [address] [id number] [place] [address] Oct, [facility] [id number] [place] [address] Sep, [facility] [id number] [place] [address] Sep, [facility] [id number] [place] [address] Sep, [facility] [address] [id number] [place] [address] Sep, [facility] [id number] [place] [address] Sep, [facility] [id number] [place] [address] Sep, [facility] [id number] [place] [address] Sep, [facility] [address] [id number] [place] [address] Sep, [facility] [id number] [place] [address] Sep, [facility] [address] [id number] [place] [address] Sep, [facility] [address] [id number] [place] [address] Aug, [facility] [address] [id number] [place] [address] 24 Aug, 2012 [facility] [address] [facility] [id number] [place] [address] 24 Aug, 2012 [facility] [address] [facility] [id number] [place] [address] 24 Aug, 2012 [facility] [address] [facility] [id number] [place] [address] 23 Aug, 2012 [facility] [address] [facility] [id number] [place] [address] 23 Aug, 2012 [facility] [address] [facility] [id number] [place] [address] 23 Aug, 2012 [facility] [address] [id number] [place] [address] Aug, 2012 [facility] [address] [id number] [place] [address] Aug, 2012 [facility] [address] [id number] [place] [address] 22 Aug, 2012 [facility] [address] [facility] [id number] [place] [address] 18 Aug, 2012 [facility] [address] [id number] [place] [address] 18 Aug, 2012 [facility] [address] [id number] [place] [address] 18 Aug, 2012 [facility] [address] [facility] [id number] [place] [address] 18 Aug, 2012 [facility] [address] [facility] [id number] [place] [address] 17 Aug, 2012 [facility] [address] [id number] [place] [address] 14 Aug, 2012 [facility] [address] [id number] [place] [address] 14 Aug, 2012 [facility] [address] [id number] [place] [address] Aug, [facility] [address] [id number] [place] [address] 20 Jul, 2013 [facility] [address] [facility] [id number] [place] [address] 19 Jul, 2013 [facility] [address] [id number] [place] [address] 18 Jul, 2013 [facility] [address] [id number] [place] [address] Jul, [facility] [address] [facility] [id number] [facility] [place] [address] Jul, [facility] [address] [id number] [place] [address] Jun, [facility] [address] [id number] [place] [address] Jun, [facility] [address] [id number] [place] [address] Jun, [facility] [address] [id number] [place] [address] Jun, [facility] [address] [id number] [place] [address] Jun, [facility] [address] [id number] [place] [address] Jun, [facility] [address] [id number] [place] [address] Jun, [facility] [address] [id number] [place] [address] Jun, [facility] [address] [facility] [id number] [place] [address] Jun, [facility] [address] [id number] [place] [address] Jun, [facility] [address] [id number] [place] [address] May, [facility] [address] [id number] [place] [address] May, [facility] [address] [id number] [facility] [place] [address] May, [facility] [address] [facility] [id number] [facility] [place] [address] May, [facility] [address] [id number] [facility] [place] [address] May, [facility] [address] [id number] [facility] [place] [address] May, [facility] [address] [facility] [id number] [facility] [place] [address] May, [facility] [address] [id number] [facility] [place] [address] May, [facility] [address] [id number] [facility] [place] [address] May, [facility] [address] [id number] [place] [address] Apr, [facility] [address] [id number] [facility] [place] [address] Apr, [facility] [address] [id number] [place] [address] Apr, [facility] [address] [id number] [place] [address] Apr, [facility] [address] [id number] [place] [address] Apr, [facility] [address] [facility] [id number] [facility] [place] [address] Apr, [facility] [address] [id number] [place] [address] Apr, [facility] [address] [id number] [place] [address] March, [facility] [address] [id number] [facility] [place] [address] Feb, [facility] [address] [id number] [place] [address] 25 Feb, 2013 [facility] [address] [facility] [id number] [place] [address] Feb, [facility] [address] [id number] [place] [address] 28 Jan, 2013 [facility] [address] [id number] [place] [address] 21 Jan, 2013 [facility] [address] [id number] [place] [address] 19 Jan, 2013 [facility] [address] [id number] [place] [address] 14 Jan, 2013 [facility] [address] [id number] [place] [address] 12 Jan, 2013 [facility] [address] [id number] [place] [address] 08 Jan, 2013 [facility] [address] [id number] [place] [address] 07 Jan, 2013 [facility] [address] [id number] [place] [address] 04 Jan, 2013 [facility] [address] [id number] [place] [address] 28 Dec, 2012 [facility] [address] [id number] [place] [address] 25 Dec, 2012 [facility] [address] [id number] [place] [address] 13 Dec, 2012 [facility] [address] [id number] [place] [address] 11 Dec, 2012 [facility] [address] [id number] [place] [address] 07 Dec, 2012 [facility] [address] [id number] [place] [address] 06 Dec, 2012 [facility] [address] [id number] [place] [address] 05 Dec, 2012 [facility] [address] [id number] [place] [address] Nov, [facility] [address] [id number] [place] [address] 24 Nov, 2012 [facility] [address] [id number] [place] [address] 18 Nov, 2012 [facility] [address] [id number] [place] [address] 15 Nov, 2012 [facility] [address] [id number] [place] [address] Nov, [facility] [address] [id number] [place] [address] Nov, [facility] [address] [id number] [place] [address] Nov, [facility] [address] [id number] [place] [address] Oct, [facility] [address] [id number] [place] [address] Oct, [facility] [address] [id number] [place] [address] Oct, [facility] [address] [id number] [place] [address] Oct, [facility] [address] [id number] [place] [address] Oct, [facility] [address] [id number] [place] [address] Oct, [facility] [address] [id number] [place] [address] Oct, [facility] [address] [id number] [place] [address] Oct, [facility] [address] [id number] [place] [address] Oct, [facility] [address] [id number] [place] [address] Oct, [facility] [address] [id number] [place] [address] Oct, [facility] [address] [id number] [place] [address] Oct, [facility] [id number] [place] [address] Sep, [facility] [address] [id number] [place] [address] Sep, [facility] [address] [id number] [place] [address] Sep, [facility] [address] [id number] [place] [address] Sep, [facility] [id number] [place] [address] Sep, [facility] [id number] [place] [address] Sep, [facility] [address] [id number] [place] [address] Sep, [facility] [id number] [place] [address] Sep, [facility] [address] [id number] [place] [address] Sep, [facility] [address] [id number] [place] [address] Sep, [facility] [address] [id number] [place] [address] Sep, [facility] [id number] [place] [address] Aug, [facility] [address] [id number] [place] [address] Aug, [facility] [address] [id number] [place] [address] Aug, [facility] [address] [facility] [id number] [place] [address] Aug, [facility] [address] [id number] [place] [address] Aug, [facility] [address] [id number] [place] [address] Aug, [facility] [address] [id number] [place] [address] Aug, [facility] [address] [id number] [place] [address] Aug, [facility] [address] [id number] [place] [address] Aug, [facility] [address] [id number] [place] [address] Aug, [facility] [address] [id number] [place] [address] Jul, [facility] [address] [id number] [place] [address] Jul, [facility] [address] [id number] [place] [address] Jul, [facility] [address] [id number] [place] [address] Jul, [facility] [address] [id number] [place] [address] Jun, [facility] [address] [id number] [place] [address] Jun, [facility] [address] [id number] [place] [address] Jun, [facility] [address] [id number] [place] [address] Jun, [facility] [address] [id number] [place] [address] Jun, [facility] [address] [id number] [place] [address] Jun, [facility] [address] [id number] [facility] [place] [address] Jun, [facility] [address] [facility] [id number] [facility] [place] [address] May, [facility] [address] [id number] [facility] [place] [address] May, [facility] [address] [id number] [facility] [place] [address] May, [facility] [address] [facility] [id number] [facility] [place] [address] May, [facility] [address] [id number] [place] [address] May, [facility] [address] [id number] [place] [address] Apr, [facility] [address] [id number] [place] [address] Apr, [facility] [address] [id number] [place] [address] Apr, [facility] [address] [id number] [place] [address] Apr, [facility] [address] [id number] [place] [address] Apr, [facility] [address] [id number] [place] [address] March, [facility] [address] [id number] [place] [address] March, [facility] [address] [id number] [place] [address] March, [facility] [address] [id number] [place] [address] March, [facility] [address] [id number] [place] [address] March, [facility] [address] [id number] [place] [address] March, [facility] [address] [id number] [place] [address] March, [facility] [address] [id number] [place] [address] March, [facility] [address] [id number] [place] [address] March, [facility] [address] [id number] [place] [address] March, [facility] [address] [id number] [place] [address] Feb, [facility] [address] [id number] [place] [address] Feb, [facility] [address] [id number] [place] [address] Feb, [facility] [address] [id number] [place] [address] Feb, [facility] [address] [id number] [place] [address] Feb, [facility] [address] [id number] [place] [address] Feb, [facility] [address] [id number] [place] [address] Feb, [facility] [address] [id number] [place] [address] Feb, [facility] [address] [id number] [place] [address] Feb, [facility] [address] [id number] [place] [address] Jan, [facility] [address] [id number] [place] [address] Jan, [facility] [address] [id number] [place] [address] Jan, [facility] [address] [id number] [place] [address] Jan, [facility] [address] [id number] [place] [address] Dec, [facility] [address] [id number] [place] [address] Dec, [facility] [address] [id number] [place] [address] Nov, [facility] [address] [id number] [place] [address] Nov, [facility] [address] [id number] [place] [address] Nov, [facility] [address] [id number] [place] [address] Nov, [facility] [address] [id number] [place] [address] Nov, [facility] [address] [id number] [place] [address] Oct, [facility] [address] [id number] [place] [address] Oct, [facility] [address] [id number] [place] [address] Oct, [facility] [address] [id number] [place] [address] Oct, [facility] [address] [id number] [place] [address] Oct, [facility] [address] [id number] [place] [address] Oct, [facility] [address] [id number] [place] [address] Oct, [facility] [address] [id number] [place] [address] Oct, [facility] [address] [id number] [place] [address] Sep, IMMUNIZATIONS No Known Immunizations SOCIAL HISTORY [...] History No Surgical history information Hospitalization History [facility], [place], operated by [facility]- Urosepsis, ab d pain and fever, discharged 11/27/2017 11/26/2017 Hospitalization History [facility] [place]- Went Unrepsonsive, Hit head 2017 Hospitalization History [facility] [place]- Back Pain 8
--- OUTSIDE RECORDS SUMMARY | 2020-06-18 14:55 | XMS REPORT ---
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 Name Role Phone Migration, Doctor Unavailable Unavailable PROBLEMS Type Condition ICD9-CM Code CRK87-KX Code Onset Dates Condition S tatus SNOMED Code Problem Hypertension I10 Active 0706216 3 Problem Hyperlipidemia E78.5 Active 03462 004 Problem Coronary artery disease I25.10 Active 70615058 Problem Low back pain M54.5 Active 705513 009 Problem Other chronic pain G89.29 Active 8 0958248 Problem Ventral hernia without obstruction or gangrene K43 .9 Active 821007637 Problem Type 2 diabetes mellitus wit hout complication, without long-term current use of insulin E11.9 Active 529217136 Problem Anxiety F41.9 Active 60773481 Problem Peripheral vascular disease I73.9 Ac tive 513468125 Problem Insomnia G47.00 Active 979171592 Problem Microcytic anemia D50.9 Active 23 5617524 Problem Pharyngeal dysphagia R13.13 Active 33048617399417 Problem Other iron deficiency anemia D50.8 A ctive 86427713 Problem Reactive depression F32.9 Active 99539083 Problem Paroxysmal atrial fibrillation I48.0 Active 188667121 Problem 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 Active 73734660 Problem Encounter for suprapubic catheter care Z43.5 Active 865009005 Problem Neurogenic bladder N31.9 Active 3 [id number] ALLERGIES No Information ENCOUNTERS Encounter Location Date Diagnosis Via [facility] [address] [place] [id number] Jan, Neurogenic bladder N31.9 [facility] [place] [id number] [place] [address] Dec, [facility] [place] [address] [facility] [place] [address] Dec, [facility] [place] [address] [facility] [place] [address] Dec, Anxiety F41.9 and Strain of right should er, subsequent encounter S46.911D [place] [address] [address] 10 Dec, 2019 Other iron deficiency anemia D50.8 [place] [address] [address] 04 Dec, 2019 [facility] [address] [place] [id number] 04 Dec, 2019 Encounter for suprapubic catheter care Z 43.5 and Microcytic anemia D50.9 [place] [address] [address] Dec, [place] [address] [address] Nov, Anxiety F41.9 and Strain of right should er, subsequent encounter S46.911D [place] [address] [address] Nov, Hypertension I10 [facility] [address] [place] [id number] Nov, Pneumonia of both lungs due to infectiou s organism, unspecified part of lung J18.9 and Suprapubic catheter Z93.59 [place] [address] [address] Nov, Hypertension I10 and Reactive depression F32.9 [place] [address] [address] Oct, Strain of right shoulder, subsequent enc ounter S46.911D and Anxiety F41.9 [place] [address] [address] Oct, [facility] [address] [place] [address] Oct, Suprapubic catheter Z93.59 and Candidias is, intertriginous B37.2 [place] [address] [address] Oct, Suprapubic catheter Z93.59 [facility], [place] [address] [id number] [place] [address] Oct, Anxiety F41.9 and Strain of right should er, subsequent encounter S46.911D [facility] [place] [address] [id number] [place] [address] Sep, [facility] [place] [address] [id number] [place] [address] Sep, [facility] [place] [address] [id number] [place] [address] Sep, [facility] [address] [place] [id number] Sep, Suprapubic catheter Z93.59 [facility] [place] [address] [id number] [place] [address] Sep, Anxiety F41.9 and Strain of right should er, subsequent encounter S46.911D [facility] [place] [address] [id number] [place] [address] Aug, [facility] [place] [address] [id number] [place] [address] Aug, [facility], [place] [address] [id number] [place] [address] Aug, Anxiety F41.9 and Strain of right should er, subsequent encounter S46.911D [facility] [address] [place] [id number] Aug, Suprapubic catheter Z93.59 [facility], [place] [address] [id number] [place] [address] Jul, Strain of right shoulder, subsequent enc ounter S46.911D and Anxiety F41.9 [facility] [place] [address] [id number] [place] [address] Jul, Anxiety F41.9 [facility], [place] [address] [facility] [place] [address] Jun, [place] [id number] [place] [address] Jun, [facility], [place] [id number] [place] [address] Jun, [place] [id number] [place] [address] Jun, Strain of right shoulder, subsequent enc ounter S46.911D [place] [id number] [place] [address] Jun, Strain of right shoulder, subsequent enc ounter S46.911D [place] [address] [address] Jun, Anxiety F41.9 [facility] [address] [place] [id number] Jun, Neurogenic bladder N31.9 and Anxiety F41 .9 [facility] [address] [place] [id number] May, Anxiety F41.9 [place] [id number] [place] [address] May, Dysuria R30.0 [place] [id number] [place] [address] May, Strain of right shoulder, subsequent enc ounter S46.911D and Anxiety F41.9 [place] [id number] [place] [address] Apr, [facility] [address] [place] [address] Apr, Strain of right shoulder, subsequent enc ounter S46.911D [place] [id number] [place] [address] Apr, Strain of right shoulder, subsequent enc ounter S46.911D and Anxiety F41.9 [facility] [address] [place] [id number] Apr, Type 2 diabetes mellitus without complic ation, without long-term current use of insulin E11.9 and Neurogenic bladder N31.9 [facility] [address] [place] [address] Apr, Strain of right shoulder, subsequent enc ounter S46.911D ; History of GI bleed Z87.19 ; Neurogenic bladder N31.9 and Reactive depression F32.9 [place] [address] [address] 10 Apr, 2019 Acute pain of left shoulder M25.512 [place] [address] [address] Apr, [place] [address] [address] Apr, Anxiety F41.9 and Other chronic pain G89 .29 [facility] [address] [place] [id number] March, Gastrointestinal hemorrhage associated w ith acute gastritis K29.01 [place] [address] [address] March, [facility] [address] [place] [address] March, Bronchitis J40 [place] [address] [address] March, Cough R05 [place] [address] [address] March, Other chronic pain G89.29 [place] [address] [address] March, Anxiety F41.9 [place] [address] [address] March, [place] [address] [address] Feb, Other chronic pain G89.29 [place] [address] [address] Feb, Anxiety F41.9 [facility], [place] [address] [address] Feb, Other chronic pain G89.29 [facility] [address] [place] [address] Feb, Neurogenic bladder N31.9 and Suprapubic catheter Z93.59 [facility] [place] [address] [address] Jan, Anxiety F41.9 [facility] [place] [address] [address] Dec, Anxiety F41.9 [facility] [place] [address] [address] Dec, Other chronic pain G89.29 and Anxiety F4 1.9 [facility], [place] [address] [address] Dec, [facility] [address] [place] [id number] Dec, Neurogenic bladder N31.9 and Suprapubic catheter Z93.59 [place] [address] [address] Nov, Other chronic pain G89.29 and Anxiety F4 1.9 [facility], [place] [address] [address] Nov, [facility] [address] [place] [address] Nov, Suprapubic catheter Z93.59 [facility] [place] [address] [address] Oct, Other chronic pain G89.29 and Anxiety F4 1.9 [facility], [place] [address] [address] Oct, [facility] [place] [address] [address] Oct, Suprapubic catheter Z93.59 [place] [address] [address] Oct, [facility] [address] [place] [id number] Oct, [place] [address] [address] Oct, Anxiety F41.9 [place] [address] [address] Oct, Anxiety F41.9 [facility] [address] [place] [id number] Oct, Other chronic pain G89.29 [place] [address] [address] Sep, Other chronic pain G89.29 [facility] [address] [place] [address] Sep, Suprapubic catheter Z93.59 and Cervicalg ia M54.2 [place] [address] [address] Sep, [place] [address] [address] Sep, [place] [address] [address] Sep, [facility] [address] [place] [address] Aug, Cystitis N30.90 [place] [address] [address] Aug, [place] [address] [address] Aug, Other chronic pain G89.29 [place] [address] [address] Aug, [facility] [address] [place] [id number] Aug, Encounter for suprapubic catheter care Z 43.5 [place] [address] [place] [address] Jul, [facility] [address] [place] [id number] Jul, [facility] [place] [address] [address] Jul, Other chronic pain G89.29 [place] [address] [address] Jul, [place] [address] [address] Jul, [facility] [address] [place] [id number] Jun, 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 [place] [address] [address] Jun, Other chronic pain G89.29 [place] [address] [address] Jun, [facility] [address] [place] [id number] May, Anxiety F41.9 ; Type 2 diabetes mellitus without complication, without long-term current use of insulin E11.9 ; Hypertension I10 ; Low back pain M54.5 ; Paroxysmal atrial fibrillation I48.0 and 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 [place] [address] [address] May, Other chronic pain G89.29 [facility] [address] [place] [address] May, Low back pain M54.5 [place] [address] [address] May, [place] [address] [address] Apr, Other chronic pain G89.29 [place] [address] [address] Apr, [facility], [place] [address] [address] Apr, [facility] [address] [place] [id number] Apr, Closed compression fracture of L3 lumbar vertebra with routine healing, subsequent encounter S32.030D [facility] [address] [place] [id number] 14 Apr, 2018 Low back pain M54.5 [facility] [address] [place] [address] Apr, Coccydynia M53.3 [facility], [place] [address] [address] March, [facility] [place] [address] [address] March, Other chronic pain G89.29 [facility] [place] [address] [address] March, [facility] [place] [address] [address] March, [facility] [place] [address] [address] Feb, [facility], [place] [address] [address] Feb, Other chronic pain G89.29 [facility] [address] [place] [address] Feb, Other chronic pain G89.29 and Anxiety F4 1.9 [facility] [place] [address] [address] Feb, [facility] [place] [address] [address] Jan, [facility] [place] [address] [address] 20 Jan, 2018 [facility] [place] [address] [address] 13 Jan, 2018 [facility] [place] [address] [facility] [place] [address] Jan, [facility] [place] [address] [address] Dec, [facility] [address] [place] [id number] Dec, Peripheral vascular disease I73.9 ; 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 ; Other chronic pain G89.29 ; Anxiety F41.9 ; Reactive depression F32.9 ; Insomnia G47.00 and Type 2 diabetes mellitus without complication, without long-term current use of insulin E11.9 [facility] [place]IND[place] [id number] [place] [address] Nov, [place] [address] [id number] [place] [id number] Nov, Anxiety F41.9 [place] [id number] [place] [address] Nov, [place] [address] [id number] [place] [address] Nov, Anxiety F41.9 [facility] [address] [place] [address] Nov, Status post surgery Z98.890 ; Confused R 41.0 ; Anxiety F41.9 and Other chronic pain G89.29 [facility] [address] [id number] [place] [address] Nov, Other chronic pain G89.29 [facility], [place] [address] [facility] [place] [address] Oct, [place] [address] [id number] [place] [id number] Oct, Other chronic pain G89.29 [place] [address] [facility] [place] [address] Oct, Anxiety F41.9 [place] [address] [id number] [place] [address] Sep, Other chronic pain G89.29 [facility] [address] [id number] [place] [id number] Sep, [facility] [address] [place] [id number] Aug, Dysuria R30.0 and Anxiety F41.9 [facility], [place] [address] [address] Aug, [facility] [address] [id number] [place] [id number] Aug, Other chronic pain G89.29 [facility], [place] [address] [address] Jul, Other chronic pain G89.29 [facility] [address] [id number] [place] [id number] Jun, [facility] [address] [id number] [place] [address] Jun, Other chronic pain G89.29 [facility], [place] [address] [address] Jun, [facility] [place] [address] [address] May, Other chronic pain G89.29 [facility] [place] [address] [address] Apr, Other chronic pain G89.29 [facility] [address] [place] [id number] Apr, Reactive depression F32.9 and Pharyngeal dysphagia R13.13 [facility] [place] [address] [address] Apr, Urinary tract infection without hematuri a, site unspecified N39.0 [facility] [place] [address] [address] March, Other chronic pain G89.29 [facility] [place] [address] [address] Feb, Other chronic pain G89.29 [facility] [place] [address] [address] Feb, [place] [address] [id number] [place] [facility] [place] [place] [id number] Feb, [facility] [address] [place] [id number] Feb, Dysuria R30.0 and Ventral hernia without obstruction or gangrene K43.9 [place] [address] [address] Jan, Other chronic pain G89.29 [place] [address] [id number] [place] [facility] [place] [id number] Dec, Other chronic pain G89.29 [place] [address] [address] Nov, Other chronic pain G89.29 [facility] [address] [place] [address] Nov, Lymphadenitis I88.9 [place] [address] [address] Nov, Other chronic pain G89.29 [place] [address] [address] Nov, [place] [address] [id number] [place] [address] Nov, Other chronic pain G89.29 [facility] [address] [place] [id number] Oct, Low back pain M54.5 ; Hypertension I10 a nd Type 2 diabetes mellitus without complication, without long-term current use of insulin E11.9 [place] [address] [address] Oct, [place] [address] [address] Oct, [facility] [place] [address] [facility] [place] [address] Oct, [facility] [place] [address] [facility] [place] [address] Oct, [facility] [place] [id number] [place] [address] Sep, [facility] [place] [id number] [place] [address] Sep, [facility] [place] [address] [facility] [place] [address] Aug, Other chronic pain G89.29 [facility] [place] [id number] [place] [address] Jul, [facility] [place] [id number] [place] [address] Jul, [facility] [place] [id number] [place] [address] Jul, [facility] [place] [id number] [place] [address] Jun, [facility] [place] [id number] [place] [address] Jun, [facility] [address] [place] [id number] Jun, Low back pain M54.5 ; Other chronic pain G89.29 and Coronary artery disease I25.10 [facility] [place] [id number] [place] [address] Jun, [facility] [place] [id number] [place] [address] May, [facility] [place] [id number] [place] [address] May, [facility] [place] [id number] [place] [address] May, Other chronic pain G89.29 [facility] [place] [id number] [place] [address] May, [facility] [place] [address] [address] Apr, [facility] [place] [address] [address] Apr, Acute cystitis without hematuria N30.00 [facility] [place] [address] [address] 16 Apr, 2016 Acute cystitis without hematuria N30.00 ; Coronary artery disease I25.10 ; Low back pain M54.5 and Other chronic pain G89.29 [facility] [place] [address] [address] Apr, Other chronic pain G89.29 [facility] [place] [address] [address] March, Other chronic pain G89.29 [facility] [place] [address] [address] Feb, [facility] [place] [address] [address] Feb, Arthritis M19.90 [facility] [place] [address] [address] Feb, [facility] [place] [address] [address] Jan, [facility] [place] [address] [address] Jan, [facility] [place] [address] [address] Jan, Other chronic pain G89.29 [facility] [place] [address] [address] Jan, Hypertension I10 ; Coronary artery disea se I25.10 and Insomnia G47.00 [facility] [place] [address] [address] Jan, [facility] [place] [id number] [place] [address] Dec, Right hip pain M25.551 [facility] [place] [id number] [place] [address] Dec, [facility] [place] [id number] [place] [address] Dec, [facility] [place] [address] [place] [address] Dec, [facility] [place] [id number] [place] [address] Dec, Other chronic pain G89.29 [facility] [place] [id number] [place] [address] Dec, [facility] [place] [address] [address] Nov, [facility] [place] [id number] [place] [address] Nov, Other chronic pain G89.29 [facility], [place] [id number] [place] [address] Nov, Right hip pain M25.551 and Coronary karissa ry disease I25.10 [facility], [place] [id number] [place] [address] Nov, Other chronic pain G89.29 [facility], [place] [address] [id number] [place] [address] Oct, [facility], [place] [address] [address] Oct, [facility], [place] [address] [address] Sep, [facility], [place] [address] [address] Sep, [facility], [place] [address] [address] Aug, [facility], [place] [address] [id number] [place] [address] Aug, Hypertension I10 ; Coronary artery disea se I25.10 and Arthritis M19.90 [facility], [place] [address] [id number] [place] [address] Jun, [facility], [place] [address] [address] Jun, Essential hypertension, benign 401.1 ; O ther chronic pain 338.29 and Chronic airway obstruction, not elsewhere classified 496 [facility], [place] [id number] [place] [address] Jun, [facility], [place] [address] [address] Jun, [facility], [place] [id number] [place] [address] Jun, [facility], [place] [id number] [place] [address] May, [facility], [place] [address] [address] May, [facility], [place] [id number] [place] [address] Apr, [facility], [place] [id number] [place] [address] Apr, [facility], [place] [address] [id number] [place] [address] Apr, [facility], [place] [address] [id number] [place] [address] March, [facility] [facility] [place] [id number] [place] [address] March[facility] [id number] [place] [address] March, [facility] [place] [address] [address] March, [facility] [place] [address] [id number] [place] [address] March, [facility] 527.2 [facility] [address] [id number] [facility] [place] [address] Feb, [facility] [address] [id number] [place] [address] Feb, [facility] [address] [id number] [place] [address] Feb, [facility] [address] [id number] [place] [address] Feb, [facility] [address] [id number] [place] [address] Feb, [facility] [place] [address] [id number] [place] [address] Jan, [facility] [place] [address] [id number] [place] [address] Jan, [facility] [address] [id number] [place] [address] Jan, [facility] [address] [id number] [place] [address] Jan, [facility] [address] [id number] [place] [address] Jan, [facility] [address] [id number] [place] [address] Jan, [facility] [address] [id number] [place] [address] Dec, [facility] [address] [id number] [place] [address] Dec, [facility] [address] [id number] [place] [address] Dec, [facility] [address] [id number] [place] [address] Dec, [facility] [address] [id number] [place] [address] Dec, [facility] [address] [facility] [id number] [place] [address] Dec, [facility] [address] [id number] [place] [address] Nov, [facility] [address] [id number] [place] [address] Nov, [facility] [address] [id number] [place] [address] Nov, [facility] [address] [id number] [place] [address] Nov, [facility] [address] [id number] [place] [address] Nov, [facility] [address] [id number] [place] [address] Nov, [facility] [address] [id number] [place] [address] Nov, [facility] [address] [id number] [place] [address] Nov, [facility] [address] [id number] [place] [address] Nov, [facility] [address] [id number] [place] [address] Nov, [facility] [address] [id number] [place] [address] Nov, [facility] [address] [id number] [place] [address] Nov, [facility] [address] [id number] [place] [address] Nov, [facility] [address] [id number] [place] [address] Nov, [facility] [address] [id number] [place] [address] Oct, [facility] [address] [id number] [place] [address] Oct, [facility] [address] [id number] [place] [address] Oct, [facility] [address] [id number] [place] [address] Oct, [facility] [address] [id number] [place] [address] Oct, [facility] [address] [facility] [id number] [place] [address] Oct, [facility] [address] [id number] [place] [address] Oct, [facility] [address] [id number] [place] [address] Oct, [facility] [address] [id number] [place] [address] Oct, [facility] [address] [id number] [place] [address] Sep, [facility] [address] [id number] [place] [address] Sep, [facility] [address] [id number] [place] [address] Sep, [facility] [address] [id number] [place] [address] Sep, [facility] [address] [id number] [place] [address] Sep, [facility] [address] [id number] [place] [address] Sep, [facility] [address] [id number] [place] [address] Sep, [facility] [address] [id number] [place] [address] Sep, [facility] [address] [id number] [place] [address] Sep, [facility] [address] [facility] [id number] [place] [address] Sep, [facility] [address] [id number] [place] [address] Sep, [facility] [address] [id number] [place] [address] Sep, [facility] [address] [id number] [place] [address] Aug, [facility] [address] [id number] [place] [address] Aug, [facility] [address] [id number] [place] [address] Aug, [facility] [address] [id number] [place] [address] Aug, [facility] [address] [id number] [place] [address] Aug, [facility] [address] [id number] [place] [address] Aug, [facility] [address] [id number] [place] [address] Aug, [facility] [address] [id number] [place] [address] Aug, [facility] [address] [id number] [place] [address] 30 Jul, 2013 [facility] [address] [id number] [place] [address] 30 Sep, 2013 [facility] [address] [id number] [place] [address] 30 Sep, 2013 [facility] [address] [id number] [place] [address] 30 Sep, 2013 [facility] [address] [id number] [place] [address] 25 Jul, 2013 [facility] [address] [id number] [facility] [place] [address] 25 Jul, 2014 [facility] [address] [id number] [place] [address] Jul, [facility] [address] [facility] [id number] [place] [address] Jul, [facility] [address] [facility] [id number] [place] [address] Jul, [facility] [address] [facility] [id number] [place] [address] Jul, [facility] [address] [facility] [id number] [place] [address] Jun, [facility] [address] [id number] [place] [address] Jun, [facility] [address] [id number] [place] [address] Jun, [facility] [address] [id number] [place] [address] Jun, [facility] [address] [facility] [id number] [place] [address] Jun, [facility] [address] [id number] [place] [address] Jun, [facility] [address] [id number] [place] [address] Jun, [facility] [address] [facility] [id number] [place] [address] Jun, [facility] [address] [id number] [place] [address] Jun, [facility] [address] [id number] [place] [address] Jun, [facility] [address] [facility] [id number] [place] [address] Jun, [facility] [address] [id number] [place] [address] Jun, [facility] [address] [id number] [place] [address] Jun, [facility] [address] [facility] [id number] [facility] [place] [address] Jun, [facility] [address] [facility] [id number] [place] [address] Jun, [facility] [address] [id number] [facility] [place] [address] Jun, [facility] [address] [facility] [id number] [facility] [place] [address] Jun, [facility] [address] [facility] [id number] [place] [address] Jun, [facility] [address] [facility] [id number] [place] [address] Jun, [facility] [address] [id number] [place] [address] Jun, [facility] [address] [facility] [id number] [facility] [place] [address] Jun, [facility] [address] [id number] [place] [address] Jun, [facility] [address] [id number] [place] [address] May, [facility] [address] [id number] [place] [address] May, [facility] [address] [facility] [id number] [place] [address] May, [facility] [address] [id number] [place] [address] May, [facility] [address] [facility] [id number] [place] [address] May, [facility] [address] [id number] [place] [address] May, [facility] [address] [id number] [facility] [place] [address] May, 2013 [facility] [address] [facility] [id number] [facility] [place] [address] May, 2013 [facility] [address] [facility] [id number] [facility] [place] [address] May, [facility] [address] [id number] [facility] [place] [address] May, [facility] [address] [facility] [id number] [facility] [place] [address] May, [facility] [address] [facility] [id number] [facility] [place] [address] May, [facility] [address] [facility] [id number] [facility] [place] [address] May, [facility] [address] [id number] [facility] [place] [address] Apr, [facility] [address] [id number] [facility] [place] [address] Apr, [facility] [address] [facility] [id number] [facility] [place] [address] Apr, [facility] [address] [id number] [facility] [place] [address] Apr, [facility] [address] [id number] [place] [address] Apr, [facility] [address] [id number] [facility] [place] [address] Apr, [facility] [address] [facility] [id number] [facility] [place] [address] Apr, [facility] [address] [id number] [place] [address] Apr, [facility] [address] [facility] [id number] [facility] [place] [address] Apr, [facility] [address] [id number] [facility] [place] [address] March, [facility] [address] [id number] [place] [address] March, [facility] [address] [id number] [place] [address] March, [facility] [address] [id number] [place] [address] March, [facility] [address] [id number] [place] [address] March, [facility] [address] [id number] [place] [address] March, [facility] [address] [id number] [place] [address] March, [facility] [address] [id number] [place] [address] March, [facility] [address] [id number] [place] [address] March, [facility] [address] [id number] [place] [address] March, [facility] [address] [id number] [place] [address] March, [facility] [address] [id number] [place] [address] March, [facility] [address] [id number] [place] [address] March, [facility] [address] [id number] [place] [address] March, [facility] [address] [id number] [place] [address] March, [facility] [address] [id number] [place] [address] March, [facility] [address] [id number] [place] [address] March, [facility] [address] [id number] [place] [address] March, [facility] [address] [facility] [id number] [place] [address] March, [facility] [address] [id number] [place] [address] March, [facility] [address] [id number] [place] [address] Feb, [facility] [address] [id number] [place] [address] Feb, [facility] [address] [facility] [id number] [place] [address] Feb, [facility] [address] [id number] [place] [address] Feb, [facility] [address] [id number] [place] [address] Feb, [facility] [address] [id number] [place] [address] Feb, [facility] [address] [id number] [place] [address] Feb, [facility] [address] [id number] [place] [address] Feb, [facility] [address] [id number] [place] [address] Jan, [facility] [address] [id number] [place] [address] Jan, [facility] [address] [id number] [place] [address] Jan, [facility] [address] [id number] [place] [address] 24 Jan, 2014 [facility] [address] [id number] [place] [address] Jan, [facility] [address] [id number] [place] [address] Jan, [facility] [address] [id number] [place] [address] Jan, [facility] [address] [facility] [id number] [place] [address] Jan, [facility] [address] [facility] [id number] [place] [address] Jan, [facility] [address] [id number] [place] [address] Jan, [facility] [address] [id number] [place] [address] Dec, [facility] [address] [id number] [place] [address] Dec, [facility] [address] [id number] [place] [address] Dec, [facility] [address] [id number] [place] [address] Dec, [facility] [address] [id number] [place] [address] Dec, [facility] [address] [id number] [place] [address] Dec, [facility] [address] [id number] [place] [address] Dec, [facility] [address] [id number] [place] [address] Dec, [facility] [address] [id number] [place] [address] Nov, [facility] [address] [id number] [place] [address] Nov, [facility] [address] [id number] [place] [address] Nov, [facility] [address] [id number] [place] [address] Nov, [facility] [address] [id number] [place] [address] Nov, [facility] [address] [id number] [place] [address] Nov, [facility] [address] [id number] [place] [address] Nov, [facility] [address] [id number] [place] [address] Nov, [facility] [address] [id number] [place] [address] Nov, [facility] [address] [id number] [place] [address] Nov, [facility] [address] [id number] [place] [address] Nov, [facility] [address] [id number] [place] [address] Nov, [facility] [address] [id number] [place] [address] Nov, [facility] [address] [id number] [place] [address] Oct, [facility] [address] [id number] [place] [address] Oct, [facility] [address] [id number] [place] [address] Oct, [facility] [address] [id number] [place] [address] Oct, [facility] [address] [id number] [place] [address] Oct, [facility] [address] [id number] [place] [address] Oct, [facility] [address] [id number] [place] [address] Oct, [facility] [address] [id number] [place] [address] Oct, [facility] [address] [id number] [place] [address] 17 Oct, 2013 [facility] [address] [id number] [place] [address] Oct, [facility] [address] [id number] [place] [address] Oct, [facility] [address] [id number] [place] [address] Oct, [facility] [address] [id number] [place] [address] Oct, [facility] [address] [id number] [place] [address] Oct, [facility] [id number] [place] [address] Sep, [facility] [id number] [place] [address] Sep, [facility] [id number] [place] [address] Sep, [facility] [address] [id number] [place] [address] Sep, [facility] [id number] [place] [address] Sep, [facility] [id number] [place] [address] Sep, [facility] [id number] [place] [address] Sep, [facility] [address] [id number] [place] [address] Sep, [facility] [id number] [place] [address] Sep, [facility] [address] [id number] [place] [address] Sep, [facility] [address] [id number] [place] [address] Aug, [facility] [address] [id number] [place] [address] 24 Aug, 2012 [facility] [address] [facility] [id number] [place] [address] 24 Aug, 2012 [facility] [address] [facility] [id number] [place] [address] 24 Aug, 2012 [facility] [address] [facility] [id number] [place] [address] 23 Aug, 2012 [facility] [address] [facility] [id number] [place] [address] 23 Aug, 2012 [facility] [address] [facility] [id number] [place] [address] 23 Aug, 2012 [facility] [address] [id number] [place] [address] Aug, 2012 [facility] [address] [id number] [place] [address] Aug, 2012 [facility] [address] [id number] [place] [address] 22 Aug, 2012 [facility] [address] [facility] [id number] [place] [address] 18 Aug, 2012 [facility] [address] [id number] [place] [address] 18 Aug, 2012 [facility] [address] [id number] [place] [address] 18 Aug, 2012 [facility] [address] [facility] [id number] [place] [address] 18 Aug, 2012 [facility] [address] [facility] [id number] [place] [address] 17 Aug, 2012 [facility] [address] [id number] [place] [address] 14 Aug, 2012 [facility] [address] [id number] [place] [address] 14 Aug, 2012 [facility] [address] [id number] [place] [address] Aug, [facility] [address] [id number] [place] [address] 20 Jul, 2013 [facility] [address] [facility] [id number] [place] [address] 19 Jul, 2013 [facility] [address] [id number] [place] [address] 18 Jul, 2013 [facility] [address] [id number] [place] [address] Jul, [facility] [address] [facility] [id number] [facility] [place] [address] Jul, [facility] [address] [id number] [place] [address] Jun, [facility] [address] [id number] [place] [address] Jun, [facility] [address] [id number] [place] [address] Jun, [facility] [address] [id number] [place] [address] Jun, [facility] [address] [id number] [place] [address] Jun, [facility] [address] [id number] [place] [address] Jun, [facility] [address] [id number] [place] [address] Jun, [facility] [address] [id number] [place] [address] Jun, [facility] [address] [facility] [id number] [place] [address] Jun, [facility] [address] [id number] [place] [address] Jun, [facility] [address] [id number] [place] [address] May, [facility] [address] [id number] [place] [address] May, [facility] [address] [id number] [facility] [place] [address] May, [facility] [address] [facility] [id number] [facility] [place] [address] May, [facility] [address] [id number] [facility] [place] [address] May, [facility] [address] [id number] [facility] [place] [address] May, [facility] [address] [facility] [id number] [facility] [place] [address] May, [facility] [address] [id number] [facility] [place] [address] May, [facility] [address] [id number] [facility] [place] [address] May, [facility] [address] [id number] [place] [address] Apr, [facility] [address] [id number] [facility] [place] [address] Apr, [facility] [address] [id number] [place] [address] Apr, [facility] [address] [id number] [place] [address] Apr, [facility] [address] [id number] [place] [address] Apr, [facility] [address] [facility] [id number] [facility] [place] [address] Apr, [facility] [address] [id number] [place] [address] Apr, [facility] [address] [id number] [place] [address] March, [facility] [address] [id number] [facility] [place] [address] Feb, [facility] [address] [id number] [place] [address] 25 Feb, 2013 [facility] [address] [facility] [id number] [place] [address] Feb, [facility] [address] [id number] [place] [address] 28 Jan, 2013 [facility] [address] [id number] [place] [address] 21 Jan, 2013 [facility] [address] [id number] [place] [address] 19 Jan, 2013 [facility] [address] [id number] [place] [address] 14 Jan, 2013 [facility] [address] [id number] [place] [address] 12 Jan, 2013 [facility] [address] [id number] [place] [address] 08 Jan, 2013 [facility] [address] [id number] [place] [address] 07 Jan, 2013 [facility] [address] [id number] [place] [address] 04 Jan, 2013 [facility] [address] [id number] [place] [address] 28 Dec, 2012 [facility] [address] [id number] [place] [address] 25 Dec, 2012 [facility] [address] [id number] [place] [address] 13 Dec, 2012 [facility] [address] [id number] [place] [address] 11 Dec, 2012 [facility] [address] [id number] [place] [address] 07 Dec, 2012 [facility] [address] [id number] [place] [address] 06 Dec, 2012 [facility] [address] [id number] [place] [address] 05 Dec, 2012 [facility] [address] [id number] [place] [address] Nov, [facility] [address] [id number] [place] [address] 24 Nov, 2012 [facility] [address] [id number] [place] [address] 18 Nov, 2012 [facility] [address] [id number] [place] [address] 15 Nov, 2012 [facility] [address] [id number] [place] [address] Nov, [facility] [address] [id number] [place] [address] Nov, [facility] [address] [id number] [place] [address] Nov, [facility] [address] [id number] [place] [address] Oct, [facility] [address] [id number] [place] [address] Oct, [facility] [address] [id number] [place] [address] Oct, [facility] [address] [id number] [place] [address] Oct, [facility] [address] [id number] [place] [address] Oct, [facility] [address] [id number] [place] [address] Oct, [facility] [address] [id number] [place] [address] Oct, [facility] [address] [id number] [place] [address] Oct, [facility] [address] [id number] [place] [address] Oct, [facility] [address] [id number] [place] [address] Oct, [facility] [address] [id number] [place] [address] Oct, [facility] [address] [id number] [place] [address] Oct, [facility] [id number] [place] [address] Sep, [facility] [address] [id number] [place] [address] Sep, [facility] [address] [id number] [place] [address] Sep, [facility] [address] [id number] [place] [address] Sep, [facility] [id number] [place] [address] Sep, [facility] [id number] [place] [address] Sep, [facility] [address] [id number] [place] [address] Sep, [facility] [id number] [place] [address] Sep, [facility] [address] [id number] [place] [address] Sep, [facility] [address] [id number] [place] [address] Sep, [facility] [address] [id number] [place] [address] Sep, [facility] [id number] [place] [address] Aug, [facility] [address] [id number] [place] [address] Aug, [facility] [address] [id number] [place] [address] Aug, [facility] [address] [facility] [id number] [place] [address] Aug, [facility] [address] [id number] [place] [address] Aug, [facility] [address] [id number] [place] [address] Aug, [facility] [address] [id number] [place] [address] Aug, [facility] [address] [id number] [place] [address] Aug, [facility] [address] [id number] [place] [address] Aug, [facility] [address] [id number] [place] [address] Aug, [facility] [address] [id number] [place] [address] Jul, [facility] [address] [id number] [place] [address] Jul, [facility] [address] [id number] [place] [address] Jul, [facility] [address] [id number] [place] [address] Jul, [facility] [address] [id number] [place] [address] Jun, [facility] [address] [id number] [place] [address] Jun, [facility] [address] [id number] [place] [address] Jun, [facility] [address] [id number] [place] [address] Jun, [facility] [address] [id number] [place] [address] Jun, [facility] [address] [id number] [place] [address] Jun, [facility] [address] [id number] [facility] [place] [address] Jun, [facility] [address] [facility] [id number] [facility] [place] [address] May, [facility] [address] [id number] [facility] [place] [address] May, [facility] [address] [id number] [facility] [place] [address] May, [facility] [address] [facility] [id number] [facility] [place] [address] May, [facility] [address] [id number] [place] [address] May, [facility] [address] [id number] [place] [address] Apr, [facility] [address] [id number] [place] [address] Apr, [facility] [address] [id number] [place] [address] Apr, [facility] [address] [id number] [place] [address] Apr, [facility] [address] [id number] [place] [address] Apr, [facility] [address] [id number] [place] [address] March, [facility] [address] [id number] [place] [address] March, [facility] [address] [id number] [place] [address] March, [facility] [address] [id number] [place] [address] March, [facility] [address] [id number] [place] [address] March, [facility] [address] [id number] [place] [address] March, [facility] [address] [id number] [place] [address] March, [facility] [address] [id number] [place] [address] March, [facility] [address] [id number] [place] [address] March, [facility] [address] [id number] [place] [address] March, [facility] [address] [id number] [place] [address] Feb, [facility] [address] [id number] [place] [address] Feb, [facility] [address] [id number] [place] [address] Feb, [facility] [address] [id number] [place] [address] Feb, [facility] [address] [id number] [place] [address] Feb, [facility] [address] [id number] [place] [address] Feb, [facility] [address] [id number] [place] [address] Feb, [facility] [address] [id number] [place] [address] Feb, [facility] [address] [id number] [place] [address] Feb, [facility] [address] [id number] [place] [address] Jan, [facility] [address] [id number] [place] [address] Jan, [facility] [address] [id number] [place] [address] Jan, [facility] [address] [id number] [place] [address] Jan, [facility] [address] [id number] [place] [address] Dec, [facility] [address] [id number] [place] [address] Dec, [facility] [address] [id number] [place] [address] Nov, [facility] [address] [id number] [place] [address] Nov, [facility] [address] [id number] [place] [address] Nov, [facility] [address] [id number] [place] [address] Nov, [facility] [address] [id number] [place] [address] Nov, [facility] [address] [id number] [place] [address] Oct, [facility] [address] [id number] [place] [address] Oct, [facility] [address] [id number] [place] [address] Oct, [facility] [address] [id number] [place] [address] Oct, [facility] [address] [id number] [place] [address] Oct, [facility] [address] [id number] [place] [address] Oct, [facility] [address] [id number] [place] [address] Oct, [facility] [address] [id number] [place] [address] Oct, [facility] [address] [id number] [place] [address] Sep, IMMUNIZATIONS No Known Immunizations SOCIAL HISTORY Never Assessed REASON FOR VISIT PLAN OF CARE VITAL SIGNS Height 62 in 2014-01-13 Weight 186.1 lbs 2014-01-13 Temperature 98.2 degrees Fahrenheit 2014-01-13 Heart Rate 80 bpm 2014-01-13 Respiratory Rate 20 2014-01-13 Blood pressure systolic 138 mmHg 2014-01-13 Blood pressure diastolic 60 mmHg 2014-01-13 MEDICATIONS No Known Medications RESULTS No Results PROCEDURES Procedure Date Ordered Result Body Site ASSAY OF MAGNESIUM Jan 13, 2014 COMPREHEN METABOLIC PANEL Jan 13, 2014 VENIPUNCT, ROUTINE* Jan 13, 2014 INSTRUCTIONS MEDICATIONS ADMINISTERED No Known Medications [...] History No Surgical history information Hospitalization History [facility]- Urosepsis, ab d pain and fever, discharged 11/27/2017 11/26/2017 Hospitalization History [facility]- Went Unrepsonsive, Hit head 2017 Hospitalization History [facility]- Back Pain 05/05/ 8
--- OUTSIDE RECORDS SUMMARY | 2020-06-18 14:55 | XMS REPORT ---
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 Name Role Phone Migration, Doctor Unavailable Unavailable PROBLEMS Type Condition ICD9-CM Code TSL83-YA Code Onset Dates Condition S tatus SNOMED Code Problem Hypertension I10 Active 3716718 3 Problem Hyperlipidemia E78.5 Active 78216 004 Problem Coronary artery disease I25.10 Active 97266212 Problem Low back pain M54.5 Active 467363 009 Problem Other chronic pain G89.29 Active 8 3000571 Problem Ventral hernia without obstruction or gangrene K43 .9 Active 617571226 Problem Type 2 diabetes mellitus wit hout complication, without long-term current use of insulin E11.9 Active 357147225 Problem Anxiety F41.9 Active 26140429 Problem Peripheral vascular disease I73.9 Ac tive 811854925 Problem Insomnia G47.00 Active 799101824 Problem Microcytic anemia D50.9 Active 23 1761433 Problem Pharyngeal dysphagia R13.13 Active 53560227341821 Problem Other iron deficiency anemia D50.8 A ctive 20911896 Problem Reactive depression F32.9 Active 83195453 Problem Paroxysmal atrial fibrillation I48.0 Active 501069058 Problem 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 Active 02792367 Problem Encounter for suprapubic catheter care Z43.5 Active 381180333 Problem Neurogenic bladder N31.9 Active 3 [id number] ALLERGIES No Information ENCOUNTERS Encounter Location Date Diagnosis Via [facility] [address] [place] [id number] Jan, Neurogenic bladder N31.9 [facility] [id number] [place] [address] Dec, [facility] [address] [id number] [place] [address] Dec, [facility] [address] [facility] [place] [address] Dec, Anxiety F41.9 and Strain of right should er, subsequent encounter S46.911D [place] [address] [address] 10 Dec, 2019 Other iron deficiency anemia D50.8 [place] [address] [address] 04 Dec, 2019 [facility] [address] [place] [id number] 04 Dec, 2019 Encounter for suprapubic catheter care Z 43.5 and Microcytic anemia D50.9 [place] [address] [address] Dec, [place] [address] [address] Nov, Anxiety F41.9 and Strain of right should er, subsequent encounter S46.911D [place] [address] [address] Nov, Hypertension I10 [facility] [address] [place] [id number] Nov, Pneumonia of both lungs due to infectiou s organism, unspecified part of lung J18.9 and Suprapubic catheter Z93.59 [place] [address] [address] Nov, Hypertension I10 and Reactive depression F32.9 [place] [address] [address] Oct, Strain of right shoulder, subsequent enc ounter S46.911D and Anxiety F41.9 [place] [address] [address] Oct, [facility] [address] [place] [id number] Oct, Suprapubic catheter Z93.59 and Candidias is, intertriginous B37.2 [place] [address] [address] Oct, Suprapubic catheter Z93.59 [facility] [address] [id number] [place] [address] Oct, Anxiety F41.9 and Strain of right should er, subsequent encounter S46.911D [facility] [address] [id number] [place] [address] Sep, [facility] [address] [id number] [place] [address] Sep, [facility] [address] [id number] [place] [address] Sep, [facility] [address] [place] [id number] Sep, Suprapubic catheter Z93.59 [facility] [address] [id number] [place] [address] Sep, Anxiety F41.9 and Strain of right should er, subsequent encounter S46.911D [facility] [address] [id number] [place] [address] Aug, [facility] [address] [id number] [place] [address] Aug, [facility] [address] [id number] [place] [address] Aug, Anxiety F41.9 and Strain of right should er, subsequent encounter S46.911D [facility] [address] [place] [id number] Aug, Suprapubic catheter Z93.59 [facility] [address] [id number] [place] [address] Jul, Strain of right shoulder, subsequent enc ounter S46.911D and Anxiety F41.9 [facility] [address] [id number] [place] [address] Jul, Anxiety F41.9 [facility] [address] [id number] [place] [address] Jun, [place] [id number] [place] [address] Jun, [facility] [id number] [place] [address] Jun, [place] [id number] [place] [address] Jun, Strain of right shoulder, subsequent enc ounter S46.911D [place] [id number] [place] [address] Jun, Strain of right shoulder, subsequent enc ounter S46.911D [place] [address] [address] Jun, Anxiety F41.9 [facility] [address] [place] [id number] Jun, Neurogenic bladder N31.9 and Anxiety F41 .9 [facility] [address] [place] [address] May, Anxiety F41.9 [place] [id number] [place] [address] May, Dysuria R30.0 [place] [id number] [place] [address] May, Strain of right shoulder, subsequent enc ounter S46.911D and Anxiety F41.9 [place] [id number] [place] [address] Apr, Via [facility] [address] [place] [id number] Apr, Strain of right shoulder, subsequent enc ounter S46.911D [place] [id number] [place] [address] Apr, Strain of right shoulder, subsequent enc ounter S46.911D and Anxiety F41.9 [facility] [address] [place] [address] Apr, Type 2 diabetes mellitus without complic ation, without long-term current use of insulin E11.9 and Neurogenic bladder N31.9 [facility] [address] [place] [id number] Apr, Strain of right shoulder, subsequent enc ounter S46.911D ; History of GI bleed Z87.19 ; Neurogenic bladder N31.9 and Reactive depression F32.9 [place] [address] [address] 10 Apr, 2019 Acute pain of left shoulder M25.512 [place] [address] [address] Apr, [place] [address] [address] Apr, Anxiety F41.9 and Other chronic pain G89 .29 [facility] [address] [place] [id number] March, Gastrointestinal hemorrhage associated w ith acute gastritis K29.01 [place] [address] [address] March, [facility] [address] [place] [id number] March, Bronchitis J40 [place] [address] [address] March, Cough R05 [place] [address] [address] March, Other chronic pain G89.29 [place] [address] [address] March, Anxiety F41.9 [place] [address] [address] March, [place] [address] [address] Feb, Other chronic pain G89.29 [place] [address] [address] Feb, Anxiety F41.9 [facility] [address] [address] Feb, Other chronic pain G89.29 [facility] [address] [place] [address] Feb, Neurogenic bladder N31.9 and Suprapubic catheter Z93.59 [facility] [address] [address] Jan, Anxiety F41.9 [facility] [address] [address] Dec, Anxiety F41.9 [facility] [address] [address] Dec, Other chronic pain G89.29 and Anxiety F4 1.9 [facility] [address] [address] Dec, [facility] [address] [place] [id number] Dec, Neurogenic bladder N31.9 and Suprapubic catheter Z93.59 [place] [address] [address] Nov, Other chronic pain G89.29 and Anxiety F4 1.9 [facility] [address] [address] Nov, [facility] [address] [place] [id number] Nov, Suprapubic catheter Z93.59 [facility] [address] [address] Oct, Other chronic pain G89.29 and Anxiety F4 1.9 [facility] [address] [address] Oct, [facility] [address] [address] Oct, Suprapubic catheter Z93.59 [place] [address] [address] Oct, Via [facility] [address] [place] [id number] Oct, [place] [address] [address] Oct, Anxiety F41.9 [place] [address] [address] Oct, Anxiety F41.9 [facility] [address] [place] [id number] Oct, Other chronic pain G89.29 [place] [address] [address] Sep, Other chronic pain G89.29 [facility] [address] [place] [id number] Sep, Suprapubic catheter Z93.59 and Cervicalg ia M54.2 [place] [address] [address] Sep, [place] [address] [address] Sep, [place] [address] [address] Sep, [facility] [address] [place] [id number] Aug, Cystitis N30.90 [place] [address] [address] Aug, [place] [address] [address] Aug, Other chronic pain G89.29 [place] [address] [address] Aug, [facility] [address] [place] [id number] Aug, Encounter for suprapubic catheter care Z 43.5 [place] [id number] [place] [address] Jul, [facility] [address] [place] [id number] Jul, [facility] [address] [address] Jul, Other chronic pain G89.29 [place] [address] [address] Jul, [place] [address] [address] Jul, [facility] [address] [place] [id number] Jun, 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 [place] [address] [address] Jun, Other chronic pain G89.29 [place] [address] [address] Jun, [facility] [address] [place] [id number] May, Anxiety F41.9 ; Type 2 diabetes mellitus without complication, without long-term current use of insulin E11.9 ; Hypertension I10 ; Low back pain M54.5 ; Paroxysmal atrial fibrillation I48.0 and 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 [place] [address] [address] May, Other chronic pain G89.29 [facility] [address] [place] [id number] May, Low back pain M54.5 [place] [address] [address] May, [place] [address] [address] Apr, Other chronic pain G89.29 [place] [address] [address] Apr, [facility] [address] [address] Apr, [facility] [employer] [address] [place] [id number] Apr, Closed compression fracture of L3 lumbar vertebra with routine healing, subsequent encounter S32.030D [facility] [address] [place] [id number] 14 Apr, 2018 Low back pain M54.5 [facility] [address] [place] [id number] Apr, Coccydynia M53.3 [facility] [address] [address] March, [facility] [address] [address] March, Other chronic pain G89.29 [facility] [address] [address] March, [facility] [address] [address] March, [facility] [address] [address] Feb, [facility] [address] [address] Feb, Other chronic pain G89.29 [facility] [address] [place] [id number] Feb, Other chronic pain G89.29 and Anxiety F4 1.9 [facility] [address] [address] Feb, [facility] [address] [address] Jan, [facility] [address] [address] 20 Jan, 2018 [facility] [address] [address] 13 Jan, 2018 [facility] [address] [id number] [place] [address] Jan, [facility] [address] [address] Dec, [facility] [employer] [address] [place] [id number] Dec, Peripheral vascular disease I73.9 ; 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 ; Other chronic pain G89.29 ; Anxiety F41.9 ; Reactive depression F32.9 ; Insomnia G47.00 and Type 2 diabetes mellitus without complication, without long-term current use of insulin E11.9 [facility] MOHINDER [id number] [place] [address] Nov, [place] [address] [id number] [place] [id number] Nov, Anxiety F41.9 [place] [id number] [place] [address] Nov, [place] [address] [id number] [place] [address] Nov, Anxiety F41.9 [facility] [address] [place] [id number] Nov, Status post surgery Z98.890 ; Confused R 41.0 ; Anxiety F41.9 and Other chronic pain G89.29 [facility] [address] [id number] [place] [address] Nov, Other chronic pain G89.29 [facility] [address] [id number] [place] [address] Oct, [place] [address] [id number] [place] [address] Oct, Other chronic pain G89.29 [place] [address] [facility] [place] [address] Oct, Anxiety F41.9 [place] [address] [id number] [place] [id number] Sep, Other chronic pain G89.29 [facility] [address] [id number] [place] [id number] Sep, [facility] [employer] [address] [place] [id number] Aug, Dysuria R30.0 and Anxiety F41.9 [facility] [address] [address] Aug, [facility] [address] [id number] [place] [id number] Aug, Other chronic pain G89.29 [facility] [address] [address] Jul, Other chronic pain G89.29 [facility] [address] [id number] [place] [id number] Jun, [facility] [address] [id number] [place] [id number] Jun, Other chronic pain G89.29 [facility] [address] [address] Jun, [facility] [address] [address] May, Other chronic pain G89.29 [facility] [address] [address] Apr, Other chronic pain G89.29 [facility] [employer] [facility] [address] [place] [id number] Apr, Reactive depression F32.9 and Pharyngeal dysphagia R13.13 [facility] [address] [address] Apr, Urinary tract infection without hematuri a, site unspecified N39.0 [facility] [address] [address] March, Other chronic pain G89.29 [facility] [address] [address] Feb, Other chronic pain G89.29 [facility] [address] [address] Feb, [place] [address] [id number] [place] [facility] [place] [place] [id number] Feb, [facility] [address] [place] [id number] Feb, Dysuria R30.0 and Ventral hernia without obstruction or gangrene K43.9 [place] [address] [address] Jan, Other chronic pain G89.29 [place] [address] [id number] [facility] [facility] [place] [id number] Dec, Other chronic pain G89.29 [place] [address] [address] Nov, Other chronic pain G89.29 [facility] [address] [place] [id number] Nov, Lymphadenitis I88.9 [place] [address] [address] Nov, Other chronic pain G89.29 [place] [address] [address] Nov, [place] [address] [id number] [place] [address] Nov, Other chronic pain G89.29 [email or web address] [address] [place] [id number] Oct, Low back pain M54.5 ; Hypertension I10 a nd Type 2 diabetes mellitus without complication, without long-term current use of insulin E11.9 [place] [address] [address] Oct, [place] [address] [address] Oct, [facility] [address] [facility] [place] [address] Oct, [facility] [address] [facility] [place] [address] Oct, [facility] [id number] [place] [address] Sep, [facility] [id number] [place] [address] Sep, [facility] [address] [facility] [place] [address] Aug, Other chronic pain G89.29 [facility] [id number] [place] [address] Jul, [facility] [id number] [place] [address] Jul, [facility] [id number] [place] [address] Jul, [facility] [id number] [place] [address] Jun, [facility] [id number] [place] [address] Jun, [facility] [address] [place] [id number] Jun, Low back pain M54.5 ; Other chronic pain G89.29 and Coronary artery disease I25.10 [facility] [id number] [place] [address] Jun, [facility] [id number] [place] [address] May, [facility] [id number] [place] [address] May, [facility] [id number] [place] [address] May, Other chronic pain G89.29 [facility] [id number] [place] [address] May, [facility] [address] [address] Apr, [facility] [address] [address] Apr, Acute cystitis without hematuria N30.00 [facility] [address] [address] 16 Apr, 2016 Acute cystitis without hematuria N30.00 ; Coronary artery disease I25.10 ; Low back pain M54.5 and Other chronic pain G89.29 [facility] [address] [address] Apr, Other chronic pain G89.29 [facility] [address] [address] March, Other chronic pain G89.29 [facility] [address] [address] Feb, [facility] [address] [address] Feb, Arthritis M19.90 [facility] [address] [address] Feb, [facility] [address] [address] Jan, [facility] [address] [address] Jan, [facility] [address] [address] Jan, Other chronic pain G89.29 [facility] [address] [address] Jan, Hypertension I10 ; Coronary artery disea se I25.10 and Insomnia G47.00 [facility] [address] [address] Jan, [facility] [id number] [place] [address] Dec, Right hip pain M25.551 [facility] [id number] [place] [address] Dec, [facility] [id number] [place] [address] Dec, [facility] [id number] [place] [address] Dec, [facility] [id number] [place] [address] Dec, Other chronic pain G89.29 [facility] [id number] [place] [address] Dec, [facility] [address] [address] Nov, [facility] [id number] [place] [address] Nov, Other chronic pain G89.29 [facility] [id number] [place] [address] Nov, Right hip pain M25.551 and Coronary karissa ry disease I25.10 [facility] [id number] [place] [address] Nov, Other chronic pain G89.29 [facility] [id number] [place] [address] Oct, [facility] [address] [address] Oct, [facility] [address] [address] Sep, [facility] [address] [address] Sep, [facility] [address] [address] Aug, [facility] [id number] [place] [address] Aug, Hypertension I10 ; Coronary artery disea se I25.10 and Arthritis M19.90 [facility] [id number] [place] [address] Jun, [facility] [address] [address] Jun, Essential hypertension, benign 401.1 ; O ther chronic pain 338.29 and Chronic airway obstruction, not elsewhere classified 496 [facility] [id number] [place] [address] Jun, [facility] [address] [address] Jun, [facility] [id number] [place] [id number] Jun, [facility] [id number] [place] [address] May, [facility] [address] [address] May, [facility] [id number] [place] [id number] Apr, [facility] [id number] [place] [id number] Apr, [facility] [id number] [place] [address] Apr, [facility] [id number] [place] [address] March, [facility] [id number] [place] [address] March, [facility] [id number] [place] [address] March, [facility] [address] [address] March, [facility] [address] [id number] [place] [address] March, [facility]aden[facility] 527.2 [facility] [address] [id number] [facility] [place] [address] Feb[facility] [address] [id number] [place] [address] Feb, [facility] [address] [id number] [place] [address] Feb, [facility] [address] [id number] [place] [address] Feb, [facility] [address] [id number] [place] [address] Feb, [facility] [address] [id number] [place] [address] Jan, [facility] [address] [id number] [place] [address] Jan, [facility] [address] [id number] [place] [address] Jan, [facility] [address] [id number] [place] [address] Jan, [facility] [address] [id number] [place] [address] Jan, [facility] [address] [id number] [place] [address] Jan, [facility] [address] [id number] [place] [address] Dec[facility] [address] [id number] [place] [address] Dec, [facility] [address] [id number] [place] [address] Dec, [facility] [address] [id number] [place] [address] Dec, [facility] [address] [id number] [place] [address] Dec, [facility] [address] [facility] [id number] [place] [address] Dec, [facility] [address] [id number] [place] [address] Nov, [facility] [address] [id number] [place] [address] Nov, [facility] [address] [id number] [place] [address] Nov, [facility] [address] [id number] [place] [address] Nov, [facility] [address] [id number] [place] [address] Nov, [facility] [address] [id number] [place] [address] Nov, [facility] [address] [id number] [place] [address] Nov, [facility] [address] [id number] [place] [address] Nov, [facility] [address] [id number] [place] [address] Nov, [facility] [address] [id number] [place] [address] Nov, [facility] [address] [id number] [place] [address] Nov, [facility] [address] [id number] [place] [address] Nov, [facility] [address] [id number] [place] [address] Nov, [facility] [address] [id number] [place] [address] Nov, [facility] [address] [id number] [place] [address] Oct, [facility] [address] [id number] [place] [address] Oct, [facility] [address] [id number] [place] [address] Oct, [facility] [address] [id number] [place] [address] Oct, [facility] [address] [id number] [place] [address] Oct, [facility] [address] [facility] [id number] [place] [address] Oct, [facility] [address] [id number] [place] [address] Oct, [facility] [address] [id number] [place] [address] Oct, [facility] [address] [id number] [place] [address] Oct, [facility] [address] [id number] [place] [address] Sep, [facility] [address] [id number] [place] [address] Sep, [facility] [address] [id number] [place] [address] Sep, [facility] [address] [id number] [place] [address] Sep, [facility] [address] [id number] [place] [address] Sep, [facility] [address] [id number] [place] [address] Sep, [facility] [address] [id number] [place] [address] Sep, [facility] [address] [id number] [place] [address] Sep, [facility] [address] [id number] [place] [address] Sep, [facility] [address] [facility] [id number] [place] [address] Sep, [facility] [address] [id number] [place] [address] Sep, [facility] [address] [id number] [place] [address] Sep, [facility] [address] [id number] [place] [address] Aug, [facility] [address] [id number] [place] [address] Aug, [facility] [address] [id number] [place] [address] Aug, [facility] [address] [id number] [place] [address] Aug, [facility] [address] [id number] [place] [address] Aug, [facility] [address] [id number] [place] [address] Aug, [facility] [address] [id number] [place] [address] Aug, [facility] [address] [id number] [place] [address] Aug, [facility] [address] [id number] [place] [address] 30 Jul, 2013 [facility] [address] [id number] [place] [address] 30 Sep, 2013 [facility] [address] [id number] [place] [address] 30 Sep, 2013 [facility] [address] [id number] [place] [address] 30 Sep, 2013 [facility] [address] [id number] [place] [address] 25 Jul, 2013 [facility] [address] [id number] [facility] [facility] [place] [address] 25 Jul, 2014 [facility] [address] [id number] [place] [address] Jul, [facility] [address] [facility] [id number] [place] [address] Jul, [facility] [address] [facility] [id number] [place] [address] Jul, [facility] [address] [facility] [id number] [place] [address] Jul, [facility] [address] [facility] [id number] [place] [address] Jun, [facility] [address] [id number] [place] [address] Jun, [facility] [address] [id number] [place] [address] Jun, [facility] [address] [id number] [place] [address] Jun, [facility] [address] [facility] [id number] [place] [address] Jun, [facility] [address] [id number] [place] [address] Jun, [facility] [address] [id number] [place] [address] Jun, [facility] [address] [facility] [id number] [place] [address] Jun, [facility] [address] [id number] [place] [address] Jun, [facility] [address] [id number] [place] [address] Jun, [facility] [address] [facility] [id number] [place] [address] Jun, [facility] [address] [id number] [place] [address] Jun, [facility] [address] [id number] [place] [address] Jun, [facility] [address] [facility] [id number] [facility] [place] [address] Jun, [facility] [address] [facility] [id number] [place] [address] Jun, [facility] [address] [id number] [facility] [facility] [place] [address] Jun, [facility] [address] [facility] [id number] [facility] [facility] [place] [address] Jun, [facility] [address] [facility] [id number] [place] [address] Jun, [facility] [address] [facility] [id number] [place] [address] Jun, [facility] [address] [id number] [place] [address] Jun, [facility] [address] [facility] [id number] [facility] [facility] [place] [address] Jun, [facility] [address] [id number] [place] [address] Jun, [facility] [address] [id number] [place] [address] May, [facility] [address] [id number] [place] [address] May, [facility] [address] [facility] [id number] [place] [address] May, [facility] [address] [id number] [place] [address] May, [facility] [address] [facility] [id number] [place] [address] May, [facility] [address] [id number] [place] [address] May, [facility] [address] [id number] [facility] [place] [address] May, 2013 [facility] [address] [facility] [id number] [facility] [place] [address] May, 2013 [facility] [address] [facility] [id number] [facility] [facility] [place] [address] May, [facility] [address] [id number] [facility] [place] [address] May, [facility] [address] [facility] [id number] [facility] [place] [address] May, [facility] [address] [facility] [id number] [facility] [place] [address] May, [facility] [address] [facility] [id number] [facility] [facility] [place] [address] May, [facility] [address] [id number] [facility] [facility] [place] [address] Apr, [facility] [address] [id number] [facility] [facility] [place] [address] Apr, [facility] [address] [facility] [id number] [facility] [facility] [place] [address] Apr, [facility] [address] [id number] [facility] [facility] [place] [address] Apr, [facility] [address] [id number] [place] [address] Apr, [facility] [address] [id number] [facility] [facility] [place] [address] Apr, [facility] [address] [facility] [id number] [facility] [facility] [place] [address] Apr, [facility] [address] [id number] [place] [address] Apr, [facility] [address] [facility] [id number] [facility] [facility] [place] [address] Apr, [facility] [address] [id number] [facility] [facility] [place] [address] March, [facility] [address] [id number] [place] [address] March, [facility] [address] [id number] [place] [address] March, [facility] [address] [id number] [place] [address] March, [facility] [address] [id number] [place] [address] March, [facility] [address] [id number] [place] [address] March, [facility] [address] [id number] [place] [address] March, [facility] [address] [id number] [place] [address] March, [facility] [address] [id number] [place] [address] March, [facility] [address] [id number] [place] [address] March, [facility] [address] [id number] [place] [address] March, [facility] [address] [id number] [place] [address] March, [facility] [address] [id number] [place] [address] March, [facility] [address] [id number] [place] [address] March, [facility] [address] [id number] [place] [address] March, [facility] [address] [id number] [place] [address] March, [facility] [address] [id number] [place] [address] March, [facility] [address] [id number] [place] [address] March, [facility] [address] [facility] [id number] [place] [address] March, [facility] [address] [id number] [place] [address] March, [facility] [address] [id number] [place] [address] Feb, [facility] [address] [id number] [place] [address] Feb, [facility] [address] [facility] [id number] [place] [address] Feb, [facility] [address] [id number] [place] [address] Feb, [facility] [address] [id number] [place] [address] Feb, [facility] [address] [id number] [place] [address] Feb, [facility] [address] [id number] [place] [address] Feb, [facility] [address] [id number] [place] [address] Feb, [facility] [address] [id number] [place] [address] Jan, [facility] [address] [id number] [place] [address] Jan, [facility] [address] [id number] [place] [address] Jan, [facility] [address] [id number] [place] [address] 24 Jan, 2014 [facility] [address] [id number] [place] [address] Jan, [facility] [address] [id number] [place] [address] Jan, [facility] [address] [id number] [place] [address] Jan, [facility] [address] [facility] [id number] [place] [address] Jan, [facility] [address] [facility] [id number] [place] [address] Jan, [facility] [address] [id number] [place] [address] Jan, [facility] [address] [id number] [place] [address] Dec, [facility] [address] [id number] [place] [address] Dec, [facility] [address] [id number] [place] [address] Dec, [facility] [address] [id number] [place] [address] Dec, [facility] [address] [id number] [place] [address] Dec, [facility] [address] [id number] [place] [address] Dec, [facility] [address] [id number] [place] [address] Dec, [facility] [address] [id number] [place] [address] Dec, [facility] [address] [id number] [place] [address] Nov, [facility] [address] [id number] [place] [address] Nov, [facility] [address] [id number] [place] [address] Nov, [facility] [address] [id number] [place] [address] Nov, [facility] [address] [id number] [place] [address] Nov, [facility] [address] [id number] [place] [address] Nov, [facility] [address] [id number] [place] [address] Nov, [facility] [address] [id number] [place] [address] Nov, [facility] [address] [id number] [place] [address] Nov, [facility] [address] [id number] [place] [address] Nov, [facility] [address] [id number] [place] [address] Nov, [facility] [address] [id number] [place] [address] Nov, [facility] [address] [id number] [place] [address] Nov, [facility] [address] [id number] [place] [address] Oct, [facility] [address] [id number] [place] [address] Oct, [facility] [address] [id number] [place] [address] Oct, [facility] [address] [id number] [place] [address] Oct, [facility] [address] [id number] [place] [address] Oct, [facility] [address] [id number] [place] [address] Oct, [facility] [address] [id number] [place] [address] Oct, [facility] [address] [id number] [place] [address] Oct, [facility] [address] [id number] [place] [address] 17 Oct, 2013 [facility] [address] [id number] [place] [address] Oct, [facility] [address] [id number] [place] [address] Oct, [facility] [address] [id number] [place] [address] Oct, [facility] [address] [id number] [place] [address] Oct, [facility] [address] [id number] [place] [address] Oct, [facility] [id number] [place] [address] Sep, [facility] [id number] [place] [address] Sep, [facility] [id number] [place] [address] Sep, [facility] [address] [id number] [place] [address] Sep, [facility] [id number] [place] [address] Sep, [facility] [id number] [place] [address] Sep, [facility] [id number] [place] [address] Sep, [facility] [address] [id number] [place] [address] Sep, [facility] [id number] [place] [address] Sep, [facility] [address] [id number] [place] [address] Sep, [facility] [address] [id number] [place] [address] Aug, [facility] [address] [id number] [place] [address] 24 Aug, 2012 [facility] [address] [facility] [id number] [place] [address] 24 Aug, 2012 [facility] [address] [facility] [id number] [place] [address] 24 Aug, 2012 [facility] [address] [facility] [id number] [place] [address] 23 Aug, 2012 [facility] [address] [facility] [id number] [place] [address] 23 Aug, 2012 [facility] [address] [facility] [id number] [place] [address] 23 Aug, 2012 [facility] [address] [id number] [place] [address] Aug, 2012 [facility] [address] [id number] [place] [address] Aug, 2012 [facility] [address] [id number] [place] [address] 22 Aug, 2012 [facility] [address] [facility] [id number] [place] [address] 18 Aug, 2012 [facility] [address] [id number] [place] [address] 18 Aug, 2012 [facility] [address] [id number] [place] [address] 18 Aug, 2012 [facility] [address] [facility] [id number] [place] [address] 18 Aug, 2012 [facility] [address] [facility] [id number] [place] [address] 17 Aug, 2012 [facility] [address] [id number] [place] [address] 14 Aug, 2012 [facility] [address] [id number] [place] [address] 14 Aug, 2012 [facility] [address] [id number] [place] [address] Aug, [facility] [address] [id number] [place] [address] 20 Jul, 2013 [facility] [address] [facility] [id number] [place] [address] 19 Jul, 2013 [facility] [address] [id number] [place] [address] 18 Jul, 2013 [facility] [address] [id number] [place] [address] Jul, [facility] [address] [facility] [id number] [facility] [place] [address] Jul, [facility] [address] [id number] [place] [address] Jun, [facility] [address] [id number] [place] [address] Jun, [facility] [address] [id number] [place] [address] Jun, [facility] [address] [id number] [place] [address] Jun, [facility] [address] [id number] [place] [address] Jun, [facility] [address] [id number] [place] [address] Jun, [facility] [address] [id number] [place] [address] Jun, [facility] [address] [id number] [place] [address] Jun, [facility] [address] [facility] [id number] [place] [address] Jun, [facility] [address] [id number] [place] [address] Jun, [facility] [address] [id number] [place] [address] May, [facility] [address] [id number] [place] [address] May, [facility] [address] [id number] [facility] [facility] [place] [address] May, [facility] [address] [facility] [id number] [facility] [place] [address] May, [facility] [address] [id number] [facility] [place] [address] May, [facility] [address] [id number] [facility] [place] [address] May, [facility] [address] [facility] [id number] [facility] [place] [address] May, [facility] [address] [id number] [facility] [place] [address] May, [facility] [address] [id number] [facility] [place] [address] May, [facility] [address] [id number] [place] [address] Apr, [facility] [address] [id number] [facility] [facility] [place] [address] Apr, [facility] [address] [id number] [place] [address] Apr, [facility] [address] [id number] [place] [address] Apr, [facility] [address] [id number] [place] [address] Apr, [facility] [address] [facility] [id number] [facility] [facility] [place] [address] Apr, [facility] [address] [id number] [place] [address] Apr, [facility] [address] [id number] [place] [address] March, [facility] [address] [id number] [facility] [facility] [place] [address] Feb, [facility] [address] [id number] [place] [address] 25 Feb, 2013 [facility] [address] [facility] [id number] [place] [address] Feb, [facility] [address] [id number] [place] [address] 28 Jan, 2013 [facility] [address] [id number] [place] [address] 21 Jan, 2013 [facility] [address] [id number] [place] [address] 19 Jan, 2013 [facility] [address] [id number] [place] [address] 14 Jan, 2013 [facility] [address] [id number] [place] [address] 12 Jan, 2013 [facility] [address] [id number] [place] [address] 08 Jan, 2013 [facility] [address] [id number] [place] [address] 07 Jan, 2013 [facility] [address] [id number] [place] [address] 04 Jan, 2013 [facility] [address] [id number] [place] [address] 28 Dec, 2012 [facility] [address] [id number] [place] [address] 25 Dec, 2012 [facility] [address] [id number] [place] [address] 13 Dec, 2012 [facility] [address] [id number] [place] [address] 11 Dec, 2012 [facility] [address] [id number] [place] [address] 07 Dec, 2012 [facility] [address] [id number] [place] [address] 06 Dec, 2012 [facility] [address] [id number] [place] [address] 05 Dec, 2012 [facility] [address] [id number] [place] [address] Nov, [facility] [address] [id number] [place] [address] 24 Nov, 2012 [facility] [address] [id number] [place] [address] 18 Nov, 2012 [facility] [address] [id number] [place] [address] 15 Nov, 2012 [facility] [address] [id number] [place] [address] Nov, [facility] [address] [id number] [place] [address] Nov, [facility] [address] [id number] [place] [address] Nov, [facility] [address] [id number] [place] [address] Oct, [facility] [address] [id number] [place] [address] Oct, [facility] [address] [id number] [place] [address] Oct, [facility] [address] [id number] [place] [address] Oct, [facility] [address] [id number] [place] [address] Oct, [facility] [address] [id number] [place] [address] Oct, [facility] [address] [id number] [place] [address] Oct, [facility] [address] [id number] [place] [address] Oct, [facility] [address] [id number] [place] [address] Oct, [facility] [address] [id number] [place] [address] Oct, [facility] [address] [id number] [place] [address] Oct, [facility] [address] [id number] [place] [address] Oct, [facility] [id number] [place] [address] Sep, [facility] [address] [id number] [place] [address] Sep, [facility] [address] [id number] [place] [address] Sep, [facility] [address] [id number] [place] [address] Sep, [facility] [id number] [place] [address] Sep, [facility] [id number] [place] [address] Sep, [facility] [address] [id number] [place] [address] Sep, [facility] [id number] [place] [address] Sep, [facility] [address] [id number] [place] [address] Sep, [facility] [address] [id number] [place] [address] Sep, [facility] [address] [id number] [place] [address] Sep, [facility] [id number] [place] [address] Aug, [facility] [address] [id number] [place] [address] Aug, [facility] [address] [id number] [place] [address] Aug, [facility] [address] [facility] [id number] [place] [address] Aug, [facility] [address] [id number] [place] [address] Aug, [facility] [address] [id number] [place] [address] Aug, [facility] [address] [id number] [place] [address] Aug, [facility] [address] [id number] [place] [address] Aug, [facility] [address] [id number] [place] [address] Aug, [facility] [address] [id number] [place] [address] Aug, [facility] [address] [id number] [place] [address] Jul, [facility] [address] [id number] [place] [address] Jul, [facility] [address] [id number] [place] [address] Jul, [facility] [address] [id number] [place] [address] Jul, [facility] [address] [id number] [place] [address] Jun, [facility] [address] [id number] [place] [address] Jun, [facility] [address] [id number] [place] [address] Jun, [facility] [address] [id number] [place] [address] Jun, [facility] [address] [id number] [place] [address] Jun, [facility] [address] [id number] [place] [address] Jun, [facility] [address] [id number] [facility] [facility] [place] [address] Jun, [facility] [address] [facility] [id number] [facility] [facility] [place] [address] May, [facility] [address] [id number] [facility] [facility] [place] [address] May, [facility] [address] [id number] [facility] [facility] [place] [address] May, [facility] [address] [facility] [id number] [facility] [facility] [place] [address] May, [facility] [address] [id number] [place] [address] May, [facility] [address] [id number] [place] [address] Apr, [facility] [address] [id number] [place] [address] Apr, [facility] [address] [id number] [place] [address] Apr, [facility] [address] [id number] [place] [address] Apr, [facility] [address] [id number] [place] [address] Apr, [facility] [address] [id number] [place] [address] March, [facility] [address] [id number] [place] [address] March, [facility] [address] [id number] [place] [address] March, [facility] [address] [id number] [place] [address] March, [facility] [address] [id number] [place] [address] March, [facility] [address] [id number] [place] [address] March, [facility] [address] [id number] [place] [address] March, [facility] [address] [id number] [place] [address] March, [facility] [address] [id number] [place] [address] March, [facility] [address] [id number] [place] [address] March, [facility] [address] [id number] [place] [address] Feb, [facility] [address] [id number] [place] [address] Feb, [facility] [address] [id number] [place] [address] Feb, [facility] [address] [id number] [place] [address] Feb, [facility] [address] [id number] [place] [address] Feb, [facility] [address] [id number] [place] [address] Feb, [facility] [address] [id number] [place] [address] Feb, [facility] [address] [id number] [place] [address] Feb, [facility] [address] [id number] [place] [address] Feb, [facility] [address] [id number] [place] [address] Jan, [facility] [address] [id number] [place] [address] Jan, [facility] [address] [id number] [place] [address] Jan, [facility] [address] [id number] [place] [address] Jan, [facility] [address] [id number] [place] [address] Dec, [facility] [address] [id number] [place] [address] Dec, [facility] [address] [id number] [place] [address] Nov, [facility] [address] [id number] [place] [address] Nov, [facility] [address] [id number] [place] [address] Nov, [facility] [address] [id number] [place] [address] Nov, [facility] [address] [id number] [place] [address] Nov, [facility] [address] [id number] [place] [address] Oct, [facility] [address] [id number] [place] [address] Oct, [facility] [address] [id number] [place] [address] Oct, [facility] [address] [id number] [place] [address] Oct, [facility] [address] [id number] [place] [address] Oct, [facility] [address] [id number] [place] [address] Oct, [facility] [address] [id number] [place] [address] Oct, [facility] [address] [id number] [place] [address] Oct, [facility] [address] [id number] [place] [address] Sep, IMMUNIZATIONS No Known Immunizations SOCIAL HISTORY [...] No Surgical history information Hospitalization History [facility]- Urosepsis, ab d pain and fever, discharged 11/27/2017 11/26/2017 Hospitalization History [facility]- Went Unrepsonsive, Hit head 2017 Hospitalization History [facility]- Back Pain 8
--- OUTSIDE RECORDS SUMMARY | 2020-06-18 14:56 | XMS REPORT ---
Author Author Loi JOHNSONothy SHARIF [facility] Address [address] [place] [address] Care Team Providers Care Lens Blocker Name Role Phone ELIZABETHGWENY Unavailable PROBLEMS Type Condition ICD9-CM Code LTQ67-UG Code Onset Dates Condition S tatus SNOMED Code Problem Hypertension I10 Active 6393772 3 Problem Hyperlipidemia E78.5 Active 42152 004 Problem Coronary artery disease I25.10 Active 10345939 Problem Low back pain M54.5 Active 502071 009 Problem Other chronic pain G89.29 Active 8 8172634 Problem Ventral hernia without obstruction or gangrene K43 .9 Active 034309747 Problem Type 2 diabetes mellitus wit hout complication, without long-term current use of insulin E11.9 Active 696112377 Problem Anxiety F41.9 Active 45301753 Problem Peripheral vascular disease I73.9 Ac tive 908029445 Problem Insomnia G47.00 Active 790349575 Problem Microcytic anemia D50.9 Active 23 1038932 Problem Pharyngeal dysphagia R13.13 Active [id number] Problem Other iron deficiency anemia D50.8 A ctive 78426931 Problem Reactive depression F32.9 Active 23075649 Problem Paroxysmal atrial fibrillation I48.0 Active 505945517 Problem 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 Active 84668797 Problem Encounter for suprapubic catheter care Z43.5 Active 150484754 Problem Neurogenic bladder N31.9 Active 3 [id number] ALLERGIES No Information ENCOUNTERS Encounter Location Date Diagnosis [facility] [id number] [place] [address] Dec, [facility] [id number] [place] [address] Dec, [facility] [id number] [place] [address] Dec, Anxiety F41.9 and Strain of right should er, subsequent encounter S46.911D [place] [facility] [id number] [place] [address] 10 Dec, 2019 Other iron deficiency anemia D50.8 [place] [id number] [place] [address] 04 Dec, 2019 Via [facility] [address] [place] [id number] Dec, Encounter for suprapubic catheter care Z 43.5 and Microcytic anemia D50.9 [place] [address] [address] 03 Dec, 2019 [place] [address] [address] Nov, Anxiety F41.9 and Strain of right should er, subsequent encounter S46.911D [place] [address] [address] Nov, Hypertension I10 Via [facility] [address] [place] [id number] Nov, Pneumonia of both lungs due to infectiou s organism, unspecified part of lung J18.9 and Suprapubic catheter Z93.59 [place] [id number] [place] [address] Nov, Hypertension I10 and Reactive depression F32.9 [place] [id number] [place] [address] Oct, Strain of right shoulder, subsequent enc ounter S46.911D and Anxiety F41.9 [place] [address] [place] [address] Oct, Via [facility] [address] [place] [id number] Oct, Suprapubic catheter Z93.59 and Candidias is, intertriginous B37.2 [place] [address] [address] Oct, Suprapubic catheter Z93.59 [facility] [address] [id number] [place] [address] Oct, Anxiety F41.9 and Strain of right should er, subsequent encounter S46.911D [facility] [address] [id number] [place] [address] Sep, [facility] [id number] [place] [address] Sep, [facility] [address] [id number] [place] [address] Sep, Via [facility] [address] [place] [id number] Sep, Suprapubic catheter Z93.59 [facility] [id number] [place] [address] Sep, Anxiety F41.9 and Strain of right should er, subsequent encounter S46.911D [facility] [address] [id number] [place] [address] Aug, [facility] [id number] [place] [address] Aug, [facility] [id number] [place] [address] Aug, Anxiety F41.9 and Strain of right should er, subsequent encounter S46.911D Via [facility] [address] [place] [id number] Aug, Suprapubic catheter Z93.59 [facility] [address] [id number] [place] [address] Jul, Strain of right shoulder, subsequent enc ounter S46.911D and Anxiety F41.9 [facility] [id number] [place] [address] Jul, Anxiety F[address].9 [facility] [id number] [place] [address] Jun, [facility] [id number] [place] [address] Jun, [facility] [address] [place] [address] Jun, [place] [facility] [address] [place] [address] Jun, Strain of right shoulder, subsequent enc ounter S46.911D [place] [address] [place] [address] Jun, Strain of right shoulder, subsequent enc ounter S46.911D [place] [address] [place] [address] Jun, Anxiety F41.9 [facility] [address] [place] [id number] Jun, Neurogenic bladder N31.9 and Anxiety F41 .9 [facility] [address] [place] [id number] May, Anxiety F41.9 [address] [address] [address] May, Dysuria R30.0 [place] [address] [place] [address] May, Strain of right shoulder, subsequent enc ounter S46.911D and Anxiety F41.9 [place] [address] [place] [address] Apr, Via [facility] [address] [place] [address] Apr, Strain of right shoulder, subsequent enc ounter S46.911D [place] [address] [place] [address] Apr, Strain of right shoulder, subsequent enc ounter S46.911D and Anxiety F41.9 Via [facility] [address] [place] [id number] Apr, Type 2 diabetes mellitus without complic ation, without long-term current use of insulin E11.9 and Neurogenic bladder N31.9 Via [facility] [address] [place] [address] Apr, Strain of right shoulder, subsequent enc ounter S46.911D ; History of GI bleed Z87.19 ; Neurogenic bladder N31.9 and Reactive depression F32.9 [place] [address] [address] 10 Apr, 2019 Acute pain of left shoulder M25.512 [address] [address] [address] Apr, [place] [address] [address] Apr, Anxiety F41.9 and Other chronic pain G89 .29 Via [facility] [address] [place] [id number] March, Gastrointestinal hemorrhage associated w ith acute gastritis K29.01 [place] [address] [address] March, [facility] [address] [place] [id number] March, Bronchitis J40 [place] [address] [address] March, Cough R05 [address] [address] [address] March, Other chronic pain G89.29 [place] [address] [address] March, Anxiety F41.9 [address] [address] [address] March, [address] [address] [address] Feb, Other chronic pain G89.29 [address] [address] [address] Feb, Anxiety F41.9 [facility] [address] [address] Feb, Other chronic pain G89.29 Via [facility] [address] [place] [id number] Feb, Neurogenic bladder N31.9 and Suprapubic catheter Z93.59 [facility] [address] [address] Jan, Anxiety F41.9 [facility] [address] [address] Dec, Anxiety F41.9 [facility] [address] [address] Dec, Other chronic pain G89.29 [address]xiety F4 1.9 [facility] [address] [address] Dec, Via [facility] [address] [place] [address] Dec, Neurogenic bladder N31.9 and Suprapubic catheter Z93.59 [facility] [address] [address] Nov, Other chronic pain G89.29 [address] Anxiety F4 1.9 [facility] [address] [address] Nov, [facility] [address] [place] [address] Nov, Suprapubic catheter Z93.59 [facility] [address] [address] Oct, Other chronic pain G89.29 [address] Anxiety F4 1.9 [facility] [address] [address] Oct, [facility] [address] [address] Oct, Suprapubic catheter Z93.59 [facility] [address] [place] [address] Oct, Via [facility] [address] [place] [id number] Oct, [facility] [address] [address] Oct, Anxiety F41.9 [address] [place] [address] [address] Oct, Anxiety F41.9 [facility] [address] [place] [id number] Oct, Other chronic pain G89.29 [address] [address] [address] Sep, Other chronic pain G89.29 [facility] [address] [place] [address] Sep, Suprapubic catheter Z93.59 and Cervicalg ia M54.2 [address] [place] [address] [place] [address] Sep, [facility] [address] [address] Sep, [address] [address] [address] Sep, Via [facility] [address] [place] [address] Aug, Cystitis N30.90 [address] [place] [address] [address] Aug, [facility] [address] [address] Aug, Other chronic pain G89.29 [address] [place] [address] Aug, Via [facility] [address] [place] [id number] Aug, Encounter for suprapubic catheter care Z 43.5 [address] [place] [address] Jul, Via [facility] [address] [place] [address] Jul, [facility] [address] [address] Jul, Other chronic pain G89.29 [address] [place] [address] [address] Jul, [address] [address] [address] Jul, Via [facility] [address] [place] [address] Jun, 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 [address] [address] Jun, Other chronic pain G89.29 [address] [place] [address] Jun, [facility] [address] [place] [address] May, Anxiety F41.9 ; Type 2 diabetes mellitus without complication, without long-term current use of insulin E11.9 ; Hypertension I10 ; Low back pain M54.5 ; Paroxysmal atrial fibrillation I48.0 and 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 [address] [place] [address] May, Other chronic pain G89.29 [facility] [address] [place] [address] May, Low back pain M54.5 [address] [place] [address] May, [address] [place] [address] [address] Apr, Other chronic pain G89.29 [address] [place] [address] [address] Apr, [facility] [id number] [place] [address] Apr, Via [facility] [address] [place] [address] Apr, Closed compression fracture of L3 lumbar vertebra with routine healing, subsequent encounter S32.030D [facility] [address] [place] [id number] 14 Apr, 2018 Low back pain M54.5 Via [facility] [address] [place] [address] Apr, Coccydynia M53.3 [facility] [address] [address] March, [facility] [address] [address] March, Other chronic pain G89.29 [facility] [address] [address] March, [facility] [address] [address] March, [facility] [address] [address] Feb, [facility] [address] [address] Feb, Other chronic pain G89.29 [facility] [address] [place] [address] Feb, Other chronic pain G89.29 [address] F4 [address].9 [facility] [address] [address] Feb, [facility] [address] [address] Jan, [facility] [address] [address] Jan, [facility] [address] [address] Jan, 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 ADRIENNE SANCHEZ [id number] [place] [address] Nov, [address] [place] [id number] [place] [id number] Nov, Anxiety F41.9 [address] [place] [place] [address] Nov, [address] [id number] [place] [facility] [place] [id number] Nov, Anxiety F41.9 [facility] [address] [place] [address] Nov, Status post surgery Z98.890 ; Confused R 41.0 ; Anxiety F41.9 and Other chronic pain G89.29 [address] [place] [id number] [place] [id number] Nov, Other chronic pain G89.29 [address] [id number] [place] [address] Oct, [address] [place] [id number] [place] [id number] Oct, Other chronic pain G89.29 [id number] [place] [address] Oct, Anxiety F41.9 [address] [id number] [place] [id number] Sep, Other chronic pain G89.29 [facility] [address] [id number] [place] [facility] [place] [facility] [place] [id number] Sep, Via [facility] [address] [place] [id number] Aug, Dysuria R30.[address] [facility] [address] [address] Aug, [facility] [address] [id number] [place] [facility] [place] [facility] [place] [id number] Aug, Other chronic pain G89.29 [address] [place] [address] Jul, Other chronic pain G89.29 [address] [place] [id number] [place] [facility] [place] [facility] [place] [id number] Jun, [facility] [address] [id number] [place] [id number] Jun, Other chronic pain G89.29 [facility] [address] [address] Jun, [facility] [address] [address] May, Other chronic pain G89.29 [facility] [address] [address] Apr, Other chronic pain G89.29 [facility] [address] [place] [id number] Apr, Reactive depression F32.9 and Pharyngeal dysphagia R13.13 [facility] [address] [address] Apr, Urinary tract infection without hematuri a, site unspecified N39.0 [facility] [address] [address] March, Other chronic pain G89.29 [facility] [address] [address] Feb, Other chronic pain G89.29 [facility] [address] [address] Feb, [address] [place] [id number] [place] [facility] [place] [facility] [place] [id number] Feb, [facility] [address] [place] [address] Feb, Dysuria R30.0 and Ventral hernia without obstruction or gangrene K43.9 [address] [place] [address] [address] Jan, Other chronic pain G89.29 [address] [place] [id number] [place] [facility] [place] [facility] [place] [id number] Dec, Other chronic pain G89.29 [address] [place] [address] Nov, Other chronic pain G89.29 [facility] [address] [place] [address] Nov, Lymphadenitis I88.9 [address] [address] [address] Nov, Other chronic pain G89.29 [address] [place] [address] Nov, [address] [id number] [place] [facility] [place] [facility] [place] [id number] Nov, Other chronic pain G89.29 Via [facility] [address] [place] [address] Oct, Low back pain M54.5 ; Hypertension I10 a nd Type 2 diabetes mellitus without complication, without long-term current use of insulin E11.9 [address] [place] [address] Oct, [address] [address] [address] Oct, [facility] [id number] [place] [address] Oct, [facility] [id number] [place] [address] Oct, [facility] [id number] [place] [address] Sep, [facility] [id number] [place] [address] Sep, [facility] [id number] [place] [address] Aug, Other chronic pain G89.29 [facility] [id number] [place] [address] Jul, [facility] [id number] [place] [address] Jul, [facility] [id number] [place] [address] Jul, [facility] [id number] [place] [address] Jun, [facility] [id number] [place] [address] Jun, Via [facility] [address] [place] [address] Jun, Low back pain M54.5 ; Other chronic pain G89.29 and Coronary artery disease I25.10 [facility] [id number] [place] [address] Jun, [facility] [id number] [place] [address] May, [facility] [id number] [place] [address] May, [facility] [id number] [place] [address] May, Other chronic pain G89.29 [facility] [address] [address] 13 May, 2016 [facility] [address] [address] Apr, [facility] [address] [address] Apr, Acute cystitis without hematuria N30.00 [facility] [address] [address] 16 Apr, 2016 Acute cystitis without hematuria N30.00 ; Coronary artery disease I25.10 ; Low back pain M54.5 and Other chronic pain G89.29 [facility] [address] [address] Apr, Other chronic pain G89.29 [facility] [address] [address] March, Other chronic pain G89.29 [facility] [address] [address] Feb, [facility] [address] [address] Feb, Arthritis M19.90 [facility] [address] [address] Feb, [facility] [address] [address] Jan, [facility] [address] [address] Jan, [facility] [address] [address] Jan, Other chronic pain G89.29 [facility] [address] [address] Jan, Hypertension I10 ; Coronary artery disea se I25.[address] [facility] [address] [address] Jan, [facility] [id number] [place] [address] Dec, Right hip pain M25.551 [facility] [address] [place] [address] Dec, [facility] [id number] [place] [address] Dec, [facility] [address] [address] Dec, [facility] [address] [address] Dec, Other chronic pain G89.29 [facility] [id number] [place] [address] Dec, [facility] [address] [address] Nov, [facility] [address] [place] [address] Nov, Other chronic pain G89.29 [facility] [address] [address] Nov, Right hip pain M25.551 and Coronary karissa ry disease I25.10 [facility] [address] [place] [address] Nov, Other chronic pain G89.29 [facility] [id number] [place] [address] Oct, [facility] [address] [address] Oct, [facility] [address] [address] Sep, [facility] [address] [address] Sep, [facility] [address] [address] Aug, [facility] [id number] [place] [address] 15 Aug, 2015 Hypertension I10 ; Coronary artery disea se I25.[address] [facility] [id number] [place] [address] Jun, [facility] [id number] [place] [address] Jun, Essential hypertension, benign 401.1 ; O ther chronic pain 338.29 and Chronic airway obstruction, not elsewhere classified [address] [facility] [id number] [place] [address] Jun, [facility] [address] [address] Jun, [facility] [id number] [place] [address] Jun, [facility] [id number] [place] [address] May, [facility] [id number] [place] [address] May, [facility] [address] [address] Apr, [facility] [id number] [place] [address] Apr, [facility] [id number] [place] [address] Apr, [facility] [id number] [place] [address] March, [facility] [id number] [place] [address] March, [facility] [id number] [place] [address] March, [facility] [id number] [place] [address] March, [facility] [id number] [place] [address] March, Sialadenitis 527.2 [facility] [id number] [place] [address] Feb, [facility] [id number] [place] [address] Feb, [facility] [id number] [place] [address] Feb, [facility] [id number] [place] [address] Feb, [facility] [id number] [place] [address] Feb, [facility] [id number] [place] [address] Jan, [facility] [id number] [place] [address] Jan, [facility] [id number] [place] [address] Jan, [facility] [id number] [place] [address] Jan, [facility] [id number] [place] [address] Jan, [facility] [id number] [place] [address] Jan, [facility] [id number] [place] [address] Dec, [facility] [id number] [place] [address] Dec, [facility] [id number] [place] [address] Dec, [facility] [id number] [place] [address] Dec, [facility] [id number] [place] [address] Dec, [facility] [place] [facility] [id number] [place] [address] Dec, [facility] [place] [facility] [id number] [place] [address] Nov, [facility] [place] [facility] [id number] [place] [address] Nov, [facility] [place] [facility] [id number] [place] [address] Nov, [facility] [place] [facility] [id number] [place] [address] Nov, [facility] [place] [facility] [id number] [place] [address] Nov, [facility] [place] [facility] [id number] [place] [address] Nov, [facility] [place] [facility] [id number] [place] [address] Nov, [facility] [place] [facility] [id number] [place] [address] Nov, [facility] [place] [facility] [id number] [place] [address] Nov, [facility] [place] [facility] [id number] [place] [address] Nov, [facility] [place] [facility] [id number] [place] [address] Nov, [facility] [place] [facility] [id number] [place] [address] Nov, [facility] [place] [facility] [id number] [place] [address] Nov, [facility] [place] [facility] [id number] [place] [address] Nov, [facility] [place] [facility] [id number] [place] [address] Oct, [facility] [place] [facility] [id number] [place] [address] Oct, [facility] [place] [facility] [id number] [place] [address] Oct, [facility] [place] [facility] [id number] [place] [address] Oct, [facility] [place] [facility] [id number] [place] [address] Oct, [facility] [place] [facility] [id number] [place] [address] Oct, [facility] [place] [facility] [id number] [place] [address] Oct, [facility] [place] [facility] [id number] [place] [address] Oct, [facility] [place] [facility] [id number] [place] [address] Oct, [facility] [place] [facility] [id number] [place] [address] Sep, [facility] [place] [facility] [id number] [place] [address] Sep, [facility] [place] [facility] [id number] [place] [address] Sep, [facility] [place] [facility] [id number] [place] [address] Sep, [facility] [place] [facility] [id number] [place] [address] Sep, [facility] [place] [facility] [id number] [place] [address] Sep, [facility] [place] [facility] [id number] [place] [address] Sep, [facility] [place] [facility] [id number] [place] [address] Sep, [facility] [place] [facility] [id number] [place] [address] Sep, [facility] [place] [facility] [address] [facility] [id number] [place] [address] Sep, [facility] [place] [facility] [address] [facility] [id number] [place] [address] Sep, [facility] [place] [facility] [id number] [place] [address] Sep, [facility] [place] [facility] [id number] [place] [address] Aug, [facility] [place] [facility] [address] [facility] [id number] [place] [address] Aug, [facility] [place] [facility] [id number] [place] [address] Aug, [facility] [place] [facility] [id number] [place] [address] Aug, [facility] [place] [facility] [id number] [place] [address] Aug, [facility] [place] [facility] [id number] [place] [address] Aug, [facility] [place] [facility] [id number] [place] [address] Aug, [facility] [place] [facility] [id number] [place] [address] Aug, [facility] [place] [facility] [id number] [place] [address] 30 Jul, 2013 [facility] [place] [facility] [id number] [place] [address] 30 Sep, 2013 [facility] [place] [facility] [id number] [place] [address] 30 Sep, 2013 [facility] [place] [facility] [id number] [place] [address] 30 Sep, 2013 [facility] [place] [facility] [id number] [place] [address] 25 Sep, 2013 [facility] [place] [facility] [id number] [place] [address] Jul, [facility] [place] [facility] [address] [id number] [place] [address] Jul, [facility] [place] [facility] [address] [facility] [id number] [place] [address] Jul, [facility] [place] [facility] [id number] [place] [address] Jul, [facility] [place] [facility] [address] [facility] [id number] [place] [address] Jul, [facility] [place] [facility] [address] [id number] [place] [address] Jun, [facility] [place] [facility] [id number] [place] [address] Jun, [facility] [place] [facility] [id number] [place] [address] Jun, [facility] [place] [facility] [id number] [place] [address] Jun, [facility] [place] [facility] [address] [id number] [place] [address] Jun, [facility] [place] [facility] [id number] [place] [address] Jun, [facility] [place] [facility] [id number] [place] [address] Jun, [facility] [place] [facility] [id number] [place] [address] Jun, [facility] [place] [facility] [address] [id number] [place] [address] Jun, [facility] [place] [facility] [address] [id number] [place] [address] Jun, [facility] [place] [facility] [id number] [place] [address] Jun, [facility] [place] [facility] [id number] [place] [address] Jun, [facility] [place] [facility] [address] [id number] [place] [address] Jun, [facility] [place] [facility] [address] [facility] [id number] [place] [address] Jun, [facility] [place] [facility] [address] [facility] [id number] [place] [address] Jun, [facility] [place] [facility] [address] [facility] [id number] [place] [address] Jun, [facility] [place] [facility] [address] [facility] [id number] [place] [address] Jun, [facility] [place] [facility] [address] [id number] [place] [address] Jun, [facility] [place] [facility] [id number] [place] [address] Jun, [facility] [place] [facility] [id number] [place] [address] Jun, [facility] [place] [facility] [id number] [place] [address] Jun, [facility] [place] [facility] [id number] [place] [address] Jun, [facility] [place] [facility] [id number] [place] [address] May, [facility] [place] [facility] [id number] [place] [address] May, [facility] [place] [facility] [address] [facility] [id number] [place] [address] May, [facility] [place] [facility] [address] [facility] [id number] [place] [address] May, [facility] [place] [facility] [address] [facility] [id number] [place] [address] May, [facility] [place] [facility] [address] [facility] [id number] [place] [address] May, [facility] [place] [facility] [id number] [place] [address] May, 2013 [facility] [place] [facility] [address] [id number] [facility] [place] [address] May, 2013 [facility] [place] [facility] [address] [facility] [id number] [facility] [place] [address] May, 2013 [facility] [place] [facility] [address] [facility] [id number] [facility] [place] [address] May, 2013 [facility] [place] [facility] [address] [id number] [facility] [address] May, [facility] [place] [facility] [address] [facility] [id number] [facility] [place] [address] May, [facility] [place] [facility] [address] [facility] [id number] [place] [address] May, [facility] [place] [facility] [id number] [place] [address] Apr, [facility] [place] [facility] [id number] [facility] [place] [address] Apr, [facility] [place] [facility] [address] [facility] [id number] [place] [address] Apr, [facility] [place] [facility] [address] [facility] [id number] [facility] [place] [address] Apr, [facility] [place] [facility] [address] [facility] [id number] [place] [address] Apr, [facility] [place] [facility] [id number] [place] [address] Apr, [facility] [place] [facility] [address] [facility] [id number] [place] [address] Apr, [facility] [place] [facility] [address] [id number] [place] [address] Apr, [facility] [place] [facility] [address] [facility] [id number] [place] [address] Apr, [facility] [place] [facility] [id number] [place] [address] March, [facility] [place] [facility] [address] [facility] [id number] [place] [address] March, [facility] [place] [facility] [address] [id number] [place] [address] March, [facility] [place] [facility] [id number] [place] [address] March, [facility] [place] [facility] [id number] [place] [address] March, [facility] [place] [facility] [id number] [place] [address] March, [facility] [place] [facility] [address] [id number] [place] [address] March, [facility] [place] [facility] [id number] [place] [address] March, [facility] [place] [facility] [id number] [place] [address] March, [facility] [place] [facility] [id number] [place] [address] March, [facility] [place] [facility] [id number] [place] [address] March, [facility] [place] [facility] [id number] [place] [address] March, [facility] [place] [facility] [id number] [place] [address] March, [facility] [place] [facility] [id number] [place] [address] March, [facility] [place] [facility] [id number] [place] [address] March, [facility] [place] [facility] [address] [id number] [place] [address] March, [facility] [place] [facility] [id number] [place] [address] March, [facility] [place] [facility] [id number] [place] [address] March, [facility] [place] [facility] [id number] [place] [address] March, [facility] [place] [facility] [id number] [place] [address] March, [facility] [place] [facility] [id number] [place] [address] Feb, [facility] [place] [facility] [id number] [place] [address] Feb, [facility] [place] [facility] [id number] [place] [address] Feb, [facility] [place] [facility] [id number] [place] [address] Feb, [facility] [place] [facility] [id number] [place] [address] Feb, [facility] [place] [facility] [id number] [place] [address] Feb, [facility] [place] [facility] [id number] [place] [address] Feb, [facility] [place] [facility] [id number] [place] [address] Feb, [facility] [place] [facility] [id number] [place] [address] Jan, [facility] [place] [facility] [id number] [place] [address] Jan, [facility] [place] [facility] [id number] [place] [address] Jan, [facility] [place] [facility] [id number] [place] [address] 24 Jan, 2014 [facility] [place] [facility] [id number] [place] [address] Jan, [facility] [place] [facility] [id number] [place] [address] Jan, [facility] [place] [facility] [id number] [place] [address] Jan, [facility] [place] [facility] [address] [facility] [id number] [facility] [address] Jan, [facility] [place] [facility] [address] [facility] [id number] [facility] [address] Jan, [facility] [place] [facility] [address] [facility] [id number] [facility] [address] Jan, [facility] [place] [facility] [address] [facility] [id number] [facility] [address] Dec, [facility] [place] [facility] [address] [facility] [id number] [facility] [address] Dec, [facility] [place] [facility] [id number] [place] [address] Dec, [facility] [place] [facility] [id number] [place] [address] Dec, [facility] [place] [facility] [id number] [place] [address] Dec, [facility] [place] [facility] [address] [facility] [id number] [place] [address] Dec, [facility] [place] [facility] [id number] [place] [address] Dec, [facility] [place] [facility] [id number] [place] [address] Dec, [facility] [place] [facility] [id number] [place] [address] Nov, [facility] [place] [facility] [address] [facility] [id number] [place] [address] Nov, [facility] [place] [facility] [id number] [place] [address] Nov, [facility] [place] [facility] [id number] [place] [address] Nov, [facility] [place] [facility] [id number] [place] [address] Nov, [facility] [place] [facility] [id number] [place] [address] Nov, [facility] [place] [facility] [id number] [place] [address] Nov, [facility] [place] [facility] [id number] [place] [address] Nov, [facility] [place] [facility] [id number] [place] [address] Nov, [facility] [place] [facility] [id number] [place] [address] Nov, [facility] [place] [facility] [id number] [place] [address] Nov, [facility] [place] [facility] [id number] [place] [address] Nov, [facility] [place] [facility] [id number] [place] [address] Nov, [facility] [place] [facility] [id number] [place] [address] Oct, [facility] [place] [facility] [id number] [place] [address] 30 Oct, 2013 [facility] [place] [facility] [id number] [place] [address] Oct, [facility] [place] [facility] [id number] [place] [address] Oct, [facility] [place] [facility] [id number] [place] [address] Oct, [facility] [place] [facility] [id number] [place] [address] Oct, [facility] [place] [facility] [id number] [place] [address] 18 Oct, 2013 [facility] [place] [facility] [id number] [place] [address] 18 Oct, 2013 [facility] [place] [facility] [id number] [place] [address] 17 Oct, 2012 [facility] [place] [facility] [id number] [place] [address] 17 Oct, 2012 [facility] [place] [facility] [id number] [place] [address] Oct, [facility] [place] [facility] [id number] [place] [address] Oct, 2012 [facility] [place] [facility] [id number] [place] [address] 02 Oct, 2013 [facility] [place] [facility] [id number] [place] [address] 02 Oct, 2013 [facility] [place] [facility] [id number] [place] [address] 14 Sep, 2013 [facility] [place] [facility] [id number] [place] [address] 14 Sep, 2013 [facility] [place] [facility] [id number] [place] [address] Sep, [facility] [place] [facility] [id number] [place] [address] 05 Sep, 2013 [facility] [place] [facility] [id number] [place] [address] Sep, [facility] [place] [facility] [id number] [place] [address] Sep, [facility] [place] [facility] [id number] [place] [address] Sep, [facility] [place] [facility] [id number] [place] [address] Sep, [facility] [place] [facility] [id number] [place] [address] Sep, [facility] [place] [facility] [id number] [place] [address] Sep, [facility] [place] [facility] [id number] [place] [address] Aug, [facility] [place] [facility] [id number] [place] [address] 24 Aug, 2012 [facility] [place] [facility] [address] [facility] [id number] [place] [address] 24 Aug, 2012 [facility] [place] [facility] [id number] [place] [address] 24 Aug, 2013 [facility] [place] [facility] [id number] [place] [address] Aug, 2012 [facility] [place] [facility] [id number] [place] [address] Aug, 2012 [facility] [place] [facility] [address] [facility] [id number] [place] [address] Aug, 2012 [facility] [place] [facility] [id number] [place] [address] Aug, 2012 [facility] [place] [facility] [id number] [place] [address] Aug, 2012 [facility] [place] [facility] [id number] [place] [address] Aug, 2012 [facility] [place] [facility] [id number] [place] [address] 18 Aug, 2013 [facility] [place] [facility] [id number] [place] [address] 18 Aug, 2012 [facility] [place] [facility] [id number] [place] [address] 18 Aug, 2012 [facility] [place] [facility] [id number] [place] [address] 18 Aug, 2012 [facility] [place] [facility] [address] [facility] [id number] [place] [address] 17 Aug, 2012 [facility] [place] [facility] [id number] [place] [address] 14 Aug, 2012 [facility] [place] [facility] [id number] [place] [address] 14 Aug, 2012 [facility] [place] [facility] [id number] [place] [address] Aug2012 [facility] [place] [facility] [address] [id number] [facility] [place] [address] 20 Jul, 2012 [facility] [place] [facility] [address] [id number] [facility] [place] [address] 19 Jul, 2013 [facility] [place] [facility] [address] [facility] [id number] [place] [address] 18 Jul, 2013 [facility] [place] [facility] [address] [id number] [place] [address] Jul, [facility] [place] [facility] [address] [id number] [facility] [place] [address] Jul, [facility] [place] [facility] [address] [id number] [place] [address] Jun, [facility] [place] [facility] [id number] [place] [address] Jun, [facility] [place] [facility] [address] [id number] [place] [address] Jun, [facility] [place] [facility] [address] [id number] [place] [address] Jun, [facility] [place] [facility] [address] [id number] [place] [address] Jun, [facility] [place] [facility] [id number] [place] [address] Jun, [facility] [place] [facility] [id number] [place] [address] Jun, [facility] [place] [facility] [address] [id number] [place] [address] Jun, [facility] [place] [facility] [address] [id number] [place] [address] Jun, [facility] [place] [facility] [address] [id number] [place] [address] Jun, [facility] [place] [facility] [id number] [place] [address] May, [facility] [place] [facility] [address] [id number] [place] [address] May, [facility] [place] [facility] [address] [facility] [id number] [facility] [place] [address] May, [facility] [place] [facility] [address] [facility] [id number] [facility] [place] [address] May, [facility] [place] [facility] [address] [facility] [id number] [facility] [place] [address] May, [facility] [place] [facility] [address] [facility] [id number] [facility] [place] [address] May, [facility] [place] [facility] [address] [facility] [id number] [facility] [place] [address] May, [facility] [place] [facility] [address] [facility] [id number] [facility] [place] [address] May, [facility] [place] [facility] [id number] [place] [address] May, [facility] [place] [facility] [id number] [facility] [place] [address] Apr, [facility] [place] [facility] [address] [facility] [id number] [place] [address] Apr, [facility] [place] [facility] [id number] [place] [address] Apr, [facility] [place] [facility] [id number] [place] [address] Apr, [facility] [place] [facility] [id number] [place] [address] Apr, [facility] [place] [facility] [address] [facility] [id number] [facility] [place] [address] Apr, [facility] [place] [facility] [address] [facility] [id number] [place] [address] Apr, [facility] [place] [facility] [address] [facility] [id number] [place] [address] March, [facility] [place] [facility] [id number] [facility] [place] [address] Feb, [facility] [place] [facility] [id number] [place] [address] 25 Feb, 2013 [facility] [place] [facility] [id number] [facility] [address] Feb, [facility] [place] [facility] [id number] [place] [address] 28 Jan, 2013 [facility] [place] [facility] [id number] [place] [address] Jan, [facility] [place] [facility] [id number] [place] [address] 19 Jan, 2013 [facility] [place] [facility] [id number] [place] [address] 14 Jan, 2013 [facility] [place] [facility] [id number] [place] [address] 12 Jan, 2013 [facility] [place] [facility] [id number] [place] [address] 08 Jan, 2013 [facility] [place] [facility] [id number] [place] [address] 07 Jan, 2013 [facility] [place] [facility] [id number] [place] [address] 04 Jan, 2013 [facility] [place] [facility] [id number] [place] [address] 28 Dec, 2012 [facility] [place] [facility] [id number] [place] [address] 25 Dec, 2012 [facility] [place] [facility] [id number] [place] [address] 13 Dec, 2012 [facility] [place] [facility] [id number] [place] [address] 11 Dec, 2012 [facility] [place] [facility] [id number] [place] [address] 07 Dec, 2012 [facility] [place] [facility] [id number] [place] [address] 06 Dec, 2012 [facility] [place] [facility] [id number] [place] [address] 05 Dec, 2012 [facility] [facility] [id number] [place] [address] Nov, [facility] [id number] [place] [address] Nov, [facility] [id number] [place] [address] Nov, [facility] [id number] [place] [address] Nov, [facility] [id number] [place] [address] Nov, [facility] [id number] [place] [address] Nov, [facility] [id number] [place] [address] Nov, [facility] [id number] [place] [address] Oct, [facility] [id number] [place] [address] Oct, [facility] [id number] [place] [address] Oct, [facility] [id number] [place] [address] Oct, [facility] [id number] [place] [address] Oct, [facility] [id number] [place] [address] Oct, [facility] [id number] [place] [address] Oct, [facility] [id number] [place] [address] Oct, [facility] [id number] [place] [address] 05 Oct, 2012 [facility] [id number] [place] [address] Oct, [facility] [id number] [place] [address] Oct, [facility] [id number] [place] [address] Oct, [facility] [id number] [place] [address] Sep, [facility] [id number] [place] [address] Sep, [facility] [id number] [place] [address] Sep, [facility] [id number] [place] [address] Sep, [facility] [id number] [place] [address] Sep, [facility] [id number] [place] [address] Sep, [facility] [id number] [place] [address] Sep, [facility] [id number] [place] [address] Sep, [facility] [id number] [place] [address] Sep, [facility] [id number] [place] [address] Sep, [facility] [id number] [place] [address] Sep, [facility] [id number] [place] [address] Aug, [facility] [id number] [place] [address] Aug, [facility] [id number] [place] [address] Aug, [facility] [address] [facility] [id number] [place] [address] Aug, [facility] [address] [facility] [id number] [place] [address] Aug, [facility] [id number] [place] [address] Aug, [facility] [id number] [place] [address] Aug, [facility] [id number] [place] [address] Aug, [facility] [id number] [place] [address] Aug, [facility] [id number] [place] [address] Aug, [facility] [id number] [place] [address] Jul, [facility] [id number] [place] [address] 20 Jul, 2012 [facility] [id number] [place] [address] Jul, [facility] [id number] [place] [address] Jul, [facility] [id number] [place] [address] Jun, [facility] [id number] [place] [address] Jun, [facility] [id number] [place] [address] 16 Jun, 2012 [facility] [id number] [place] [address] Jun, [facility] [id number] [place] [address] Jun, [facility] [id number] [place] [address] Jun, [facility] [address] [id number] [place] [address] Jun, [facility] [id number] [place] [address] May, [facility] [id number] [place] [address] May, [facility] [id number] [place] [address] May, [facility] [address] [facility] [id number] [place] [address] May, [facility] [id number] [place] [address] May, [facility] [id number] [place] [address] Apr, [facility] [id number] [place] [address] Apr, [facility] [id number] [place] [address] Apr, [facility] [id number] [place] [address] Apr, [facility] [id number] [place] [address] Apr, [facility] [id number] [place] [address] March, [facility] [id number] [place] [address] March, [facility] [id number] [place] [address] March, [facility] [id number] [place] [address] March, [facility] [id number] [place] [address] March, [facility] [id number] [place] [address] March, [facility] [id number] [place] [address] March, [facility] [id number] [place] [address] March, [facility] [id number] [place] [address] March, [facility] [id number] [place] [address] March, [facility] [id number] [facility] [place] [address] Feb, [facility] [id number] [place] [address] Feb, [facility] [id number] [place] [address] Feb, [facility] [id number] [place] [address] Feb, [facility] [id number] [place] [address] Feb, [facility] [id number] [place] [address] Feb, [facility] [id number] [place] [address] Feb, [facility] [id number] [place] [address] Feb, [facility] [id number] [place] [address] Feb, [facility] [id number] [place] [address] Jan, [facility] [id number] [place] [address] Jan, [facility] [id number] [place] [address] Jan, [facility] [id number] [place] [address] Jan, [facility] [id number] [place] [address] Dec, [facility] [id number] [place] [address] Dec, [facility] [id number] [place] [address] Nov, [facility] [id number] [place] [address] Nov, [facility] [id number] [place] [address] Nov, [facility] [id number] [place] [address] Nov, [facility] [id number] [place] [address] Nov, [facility] [id number] [place] [address] Oct, [facility] [id number] [place] [address] Oct, [facility] [id number] [place] [address] Oct, [facility] [id number] [place] [address] Oct, [facility] [id number] [place] [address] Oct, [facility] [id number] [place] [address] Oct, [facility] [id number] [place] [address] Oct, [facility] [id number] [place] [address] Oct, [facility] [id number] [place] [address] Sep, IMMUNIZATIONS No Known Immunizations SOCIAL HISTORY Never Assessed REASON FOR VISIT PLAN OF CARE VITAL SIGNS Height 62 in 2014-01-28 Weight 186.12 lbs 2014-01-28 Temperature 97.4 degrees Fahrenheit 2014-01-28 Heart Rate 88 bpm 2014-01-28 Respiratory Rate 24 2014-01-28 Blood pressure systolic 128 mmHg 2014-01-28 Blood pressure diastolic 74 mmHg 2014-01-28 MEDICATIONS Unknown Medications RESULTS No Results PROCEDURES Procedure Date Ordered Result Body Site MEASURE BLOOD OXYGEN LEVEL January 28, 2014 INSTRUCTIONS MEDICATIONS ADMINISTERED No Known Medications [...] information Hospitalization History [facility]- Urosepsis, ab d pain and fever, discharged 11/27/2017 11/26/2017 Hospitalization History [facility]- Went Unrepsonsive, Hit head 2017 Hospitalization History [facility]- Back Pain 05/05/201 8
--- OUTSIDE RECORDS SUMMARY | 2020-06-18 14:56 | XMS REPORT ---
Author Author Sanjuanita JOHNSON [facility] Address [address] [place] [address] Care Team Providers Care Gasket Winder Name Role Phone SHARIF JOHNSON Unavailable PROBLEMS Type Condition ICD9-CM Code KPI73-GR Code Onset Dates Condition S tatus SNOMED Code Problem Hypertension I10 Active 4551049 3 Problem Hyperlipidemia E78.5 Active 36580 004 Problem Coronary artery disease I25.10 Active 60871305 Problem Low back pain M54.5 Active 185422 009 Problem Other chronic pain G89.29 Active 8 1100968 Problem Ventral hernia without obstruction or gangrene K43 .9 Active 981819186 Problem Type 2 diabetes mellitus wit hout complication, without long-term current use of insulin E11.9 Active 279392278 Problem Anxiety F41.9 Active 38522498 Problem Peripheral vascular disease I73.9 Ac tive 472333741 Problem Insomnia G47.00 Active 508086997 Problem Microcytic anemia D50.9 Active 23 0171378 Problem Pharyngeal dysphagia R13.13 Active 80622152416502 Problem Other iron deficiency anemia D50.8 A ctive 63051976 Problem Reactive depression F32.9 Active 61859522 Problem Paroxysmal atrial fibrillation I48.0 Active 038781667 Problem Postmenopausal atrophic vaginitis N95.2 Active 33320992 Problem Encounter for suprapubic catheter care Z43.5 Active 565175073 Problem Neurogenic bladder N31.9 Active 3 [id number] ALLERGIES No Information ENCOUNTERS Encounter Location Date Diagnosis [facility] [address] [id number] [place] [address] Dec, Anxiety F41.9 and Strain of right should er, subsequent encounter S46.911D [facility] [address] [id number] [place] [address] Dec, Other iron deficiency anemia D50.8 [facility] [id number] [place] [address] 04 Dec, 2019 Via [facility] [address] [place] [id number] Dec, Encounter for suprapubic catheter care Z 43.5 and Microcytic anemia D50.9 [place] [address] [address] 03 Dec, 2019 [place] [address] [address] Nov, Anxiety F41.9 and Strain of right should er, subsequent encounter S46.911D [place] [address] [address] Nov, Hypertension I10 Via [facility] [address] [place] [id number] Nov, Pneumonia of both lungs due to infectiou s organism, unspecified part of lung J18.9 and Suprapubic catheter Z93.59 [place] [address] [address] Nov, Hypertension I10 and Reactive depression F32.9 [place] [address] [address] Oct, Strain of right shoulder, subsequent enc ounter S46.911D and Anxiety F41.9 [place] [address] [address] Oct, [facility] [address] [place] [id number] Oct, Suprapubic catheter Z93.59 and Candidias is, intertriginous B37.2 [place] [address] [address] Oct, Suprapubic catheter Z93.59 [place] [address] [address] Oct, Anxiety F41.9 and Strain of right should er, subsequent encounter S46.911D [facility] [id number] [place] [address] Sep, [facility] [id number] [place] [address] Sep, [facility] [id number] [place] [address] Sep, Via [facility] [address] [place] [id number] Sep, Suprapubic catheter Z93.59 [facility] [id number] [place] [address] Sep, Anxiety F41.9 and Strain of right should er, subsequent encounter S46.911D [facility] [id number] [place] [address] Aug, [facility] [id number] [place] [address] Aug, [facility] [id number] [place] [address] Aug, Anxiety F41.9 and Strain of right should er, subsequent encounter S46.911D [facility] [address] [place] [id number] Aug, Suprapubic catheter Z93.59 [place] [id number] [place] [address] Jul, Strain of right shoulder, subsequent enc ounter S46.911D and Anxiety F41.9 [facility] [id number] [place] [address] Jul, [address]xiety F41.9 [facility] [id number] [place] [address] Jun, [facility] [id number] [place] [address] Jun, [facility] [id number] [place] [address] Jun, [place] [address] [address] Jun, Strain of right shoulder, subsequent enc ounter S46.911D [place] [address] [place] [address] Jun, Strain of right shoulder, subsequent enc ounter S46.911D [place] [address] [address] Jun, Anxiety F41.9 [facility] [address] [place] [id number] Jun, Neurogenic bladder N31.9 and Anxiety F41 .9 Via [facility] [address] [place] [id number] May, Anxiety F41.9 [place] [address] [address] May, Dysuria R30.0 [place] [address] [address] May, Strain of right shoulder, subsequent enc ounter S46.911D and Anxiety F41.9 [place] [address] [place] [id number] Apr, Via [facility] [address] [place] [id number] Apr, Strain of right shoulder, subsequent enc ounter S46.911D [place] [address] [place] [id number] 14 Apr, 2019 Strain of right shoulder, subsequent enc ounter S46.911D and Anxiety F41.9 [facility] [address] [place] [id number] 13 Apr, 2019 Type 2 diabetes mellitus without complic ation, without long-term current use of insulin E11.9 and Neurogenic bladder N31.9 [facility] [address] [place] [id number] Apr, Strain of right shoulder, subsequent enc ounter S46.911D ; History of GI bleed Z87.19 ; Neurogenic bladder N31.9 and Reactive depression F32.9 [place] [address] [address] 10 Apr, 2019 Acute pain of left shoulder M25.512 [facility] [address] [address] Apr, [place] [address] [address] Apr, Anxiety F41.9 and Other chronic pain G89 .29 Via [facility] [address] [place] [id number] March, Gastrointestinal hemorrhage associated w ith acute gastritis K29.01 [place] [address] [address] March, Via [facility] [address] [place] [id number] March, Bronchitis J40 [place] [address] [address] March, Cough R05 [place] [address] [address] March, Other chronic pain G89.29 [place] [address] [address] March, Anxiety F41.9 [place] [address] [address] March, [place] [address] [address] Feb, Other chronic pain G89.29 [place] [address] [address] Feb, Anxiety F41.9 [place] [address] [address] Feb, Other chronic pain G89.29 Via [facility] [address] [place] [id number] Feb, Neurogenic bladder N31.9 and Suprapubic catheter Z93.59 [facility] [address] [address] Jan, Anxiety F41.9 [facility] [address] [address] Dec, Anxiety F41.9 [facility] [address] [address] Dec, Other chronic pain G89.29 [address] [facility] [address] [address] Dec, Via [facility] [address] [place] [id number] Dec, Neurogenic bladder N31.9 and Suprapubic catheter Z93.59 [place] [address] [address] Nov, Other chronic pain G89.29 [address] [facility] [address] [address] Nov, Via [facility] [address] [place] [id number] Nov, Suprapubic catheter Z93.59 [place] [address] [address] Oct, Other chronic pain G89.29 [address] [facility] [address] [address] Oct, [facility] [address] [address] Oct, Suprapubic catheter Z93.59 [place] [address] [address] Oct, Via [facility] [address] [place] [id number] Oct, [place] [address] [address] Oct, Anxiety F41.9 [place] [address] [address] Oct, Anxiety F41.9 Via [facility] [address] [place] [id number] Oct, Other chronic pain G89.29 [place] [address] [address] Sep, Other chronic pain G89.29 [facility] [address] [place] [id number] Sep, Suprapubic catheter Z93.59 and Cervicalg ia M54.2 [place] [address] [address] Sep, [place] [address] [address] Sep, [place] [address] [address] Sep, Via [facility] [address] [place] [id number] Aug, Cystitis N30.90 [place] [address] [address] Aug, [place] [address] [address] Aug, Other chronic pain G89.29 [place] [address] [address] Aug, Via [facility] [address] [place] [id number] Aug, Encounter for suprapubic catheter care Z 43.5 [place] [address] [address] Jul, Via [facility] [address] [place] [id number] Jul, [place] [address] [address] 11 Jul, 2018 Other chronic pain G89.29 [place] [address] [address] Jul, [place] [address] [address] Jul, Via [facility] [address] [place] [id number] Jun, Postmenopausal atrophic vaginitis N95.2 [place] [address] [address] 17 Jun, 2018 Other chronic pain G89.29 [place] [address] [address] Jun, Via [facility] [address] [place] [id number] May, Anxiety F41.9 ; Type 2 diabetes mellitus without complication, without long-term current use of insulin E11.9 ; Hypertension I10 ; Low back pain M54.5 ; Paroxysmal atrial fibrillation I48.0 and 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 [place] [address] [address] May, Other chronic pain G89.29 Via [facility] [address] [place] [id number] May, Low back pain M54.5 [place] [address] [address] May, [place] [address] [address] Apr, Other chronic pain G89.29 [place] [address] [address] Apr, [place] [address] [address] Apr, Via [facility] [address] [place] [id number] Apr, Closed compression fracture of L3 lumbar vertebra with routine healing, subsequent encounter S32.030D [facility] [address] [place] [id number] 14 Apr, 2018 Low back pain M54.5 [facility] [address] [place] [id number] Apr, Coccydynia M53.3 [facility] [address] [address] March, [facility] [address] [address] March, Other chronic pain G89.29 [facility] [address] [address] March, [facility] [address] [address] March, [facility] [address] [address] Feb, [facility] [address] [address] Feb, Other chronic pain G89.29 [facility] [address] [place] [id number] Feb, Other chronic pain G89.[address] [facility] [address] [address] Feb, [facility] [address] [address] Jan, [facility] [address] [address] Jan, [facility] [address] [address] Jan, [facility] [address] [address] Jan, 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 ; Other chronic pain G89.29 ; Anxiety F41.9 ; Reactive depression F32.9 ; Insomnia G47.00 and Type 2 diabetes mellitus without complication, without long-term current use of insulin E11.9 [facility] [address] [place] [address] [id number] [place] [address] Nov, [place] [address] [place] [id number] [place] [id number] Nov, Anxiety F41.9 [place] [address] [place] [id number] [place] [address] Nov, [place] [address] [place] [id number] [place] [id number] Nov, Anxiety F41.9 [facility] [address] [place] [id number] Nov, Status post surgery Z98.890 ; Confused R 41.0 ; Anxiety F41.9 and Other chronic pain G89.29 [place] [address] [place] [id number] [place] [id number] Nov, Other chronic pain G89.29 [place] [address] [id number] [place] [address] Oct, [place] [address] [place] [id number] [place] [id number] Oct, Other chronic pain G89.29 [facility] [address] [id number] [place] [address] Oct, Anxiety F41.9 [place] [address] [place] [id number] [place] [id number] Sep, Other chronic pain G89.29 [place] [address] [place] [id number] [place] [id number] Sep, Via [facility] [address] [place] [id number] Aug, Dysuria R30.[address] [facility] [id number] [place] [address] Aug, [facility] [address] [id number] [place] [id number] Aug, Other chronic pain G89.29 [facility] [address] [address] Jul, Other chronic pain G89.29 [facility] [address] [place] [id number] [place] [id number] Jun, [place] [address] [id number] [id number] Jun, Other chronic pain G89.29 [place] [address] [address] Jun, [facility] [address] [address] May, Other chronic pain G89.29 [place] [address] [address] Apr, Other chronic pain G89.29 [facility] [address] [place] [id number] Apr, Reactive depression F32.9 and Pharyngeal dysphagia R13.13 [facility] [address] [address] Apr, Urinary tract infection without hematuri a, site unspecified N39.0 [facility] [address] [address] March, Other chronic pain G89.29 [facility] [address] [address] Feb, Other chronic pain G89.29 [facility] [address] [address] Feb, [facility] [address] [id number] [place] [id number] Feb, Via [facility] [address] [place] [id number] Feb, Dysuria R30.0 and Ventral hernia without obstruction or gangrene K43.9 [facility] [address] [address] Jan, Other chronic pain G89.29 [facility] [address] [place] [id number] [place] [id number] Dec, Other chronic pain G89.29 [place] [address] [address] Nov, Other chronic pain G89.29 [facility] [address] [place] [id number] Nov, Lymphadenitis I88.9 [place] [address] [address] Nov, Other chronic pain G89.29 [facility] [address] [address] Nov, [facility] [address] [place] [id number] [place] [id number] Nov, Other chronic pain G89.29 Via [facility] [address] [place] [id number] Oct, Low back pain M54.5 ; Hypertension I10 a nd Type 2 diabetes mellitus without complication, without long-term current use of insulin E11.9 [facility] [address] [address] Oct, [facility] [address] [address] Oct, [facility] [address] [address] Oct, [facility] [address] [address] Oct, [facility] [address] [id number] [place] [address] Sep, [facility] [id number] [place] [address] Sep, [facility] [address] [id number] [place] [address] Aug, Other chronic pain G89.29 [facility] [id number] [place] [address] Jul, [facility] [id number] [place] [address] Jul, [facility] [id number] [place] [address] Jul, [facility] [id number] [place] [address] Jun, [facility] [id number] [place] [address] Jun, Via [email or web address] [address] [place] [id number] Jun, Low back pain M54.5 ; Other chronic pain G89.29 and Coronary artery disease I25.10 [facility] [id number] [place] [address] Jun, [facility] [id number] [place] [address] May, [facility] [id number] [place] [address] May, [facility] [id number] [place] [address] May, Other chronic pain G89.29 [facility] [id number] [place] [address] May, [facility] [id number] [place] [address] Apr, [facility] [address] [address] 17 Apr, 2016 Acute cystitis without hematuria N30.00 [place] [address] [address] 16 Apr, 2016 Acute cystitis without hematuria N30.00 ; Coronary artery disease I25.10 ; Low back pain M54.5 and Other chronic pain G89.29 [place] [address] [address] Apr, Other chronic pain G89.29 [place] [address] [address] March, Other chronic pain G89.29 [place] [address] [address] 18 Feb, 2016 [place] [address] [address] 15 Feb, 2016 Arthritis M19.90 [place] [address] [address] Feb, [facility] [address] [address] Jan, [place] [address] [address] Jan, [place] [address] [address] Jan, Other chronic pain G89.29 [place] [address] [address] Jan, Hypertension I10 ; Coronary artery disea se I25.10 and Insomnia G47.00 [place] [address] [address] Jan, [place] [address] [address] Dec, Right hip pain M25.551 [place] [address] [address] Dec, [facility] [id number] [place] [address] Dec, [facility] [id number] [place] [address] Dec, [facility] [id number] [place] [address] Dec, Other chronic pain G89.29 [facility] [id number] [place] [address] Dec, [facility] [id number] [place] [address] Nov, [facility] [address] [address] Nov, Other chronic pain G89.29 [facility] [address] [address] Nov, Right hip pain M25.551 and Coronary karissa ry disease I25.10 [facility] [id number] [place] [address] Nov, Other chronic pain G89.29 [facility] [id number] [place] [address] Oct, [facility] [address] [address] Oct, [facility] [address] [address] Sep, [facility] [address] [address] Sep, [facility] [address] [address] Aug, [facility] [address] [address] 15 Aug, 2015 Hypertension I10 ; Coronary artery disea se I25.[address] [facility] [address] [place] [id number] [place] [address] Jun, [facility] [address] [id number] [place] [address] Jun, Essential hypertension, benign 401.1 ; O ther chronic pain 338.29 and Chronic airway obstruction, not elsewhere classified [address] [facility] [id number] [place] [address] Jun, [facility] [id number] [place] [address] Jun, [facility] [id number] [place] [address] Jun, [facility] [id number] [place] [address] May, [facility] [id number] [place] [address] May, [facility] [id number] [place] [address] Apr, [facility] [id number] [place] [address] Apr, [facility] [id number] [place] [address] Apr, [facility] [id number] [place] [address] March, [facility] [id number] [place] [address] March, [facility] [id number] [place] [address] March, [facility] [id number] [place] [address] March, [facility] [id number] [place] [address] March, Sialadenitis 527.2 [facility] [id number] [place] [address] Feb, [facility] [address] [id number] [place] [address] Feb, 2014 [facility] [address] [id number] [place] [address] Feb, 2014 [facility] [address] [id number] [place] [address] 14 Feb, 2015 [facility] [address] [id number] [place] [address] Feb, [facility] [address] [id number] [place] [address] Jan, [facility] [address] [id number] [place] [address] Jan, [facility] [address] [id number] [place] [address] Jan, [facility] [address] [id number] [place] [address] Jan, 2014 [facility] [address] [id number] [place] [address] Jan, [facility] [address] [id number] [place] [address] Jan, [facility] [address] [id number] [place] [address] Dec, 2014 [facility] [address] [id number] [place] [address] Dec, 2014 [facility] [address] [id number] [place] [address] Dec, 2014 [facility] [address] [id number] [place] [address] Dec, 2014 [facility] [address] [id number] [place] [address] Dec, 2014 [facility] [address] [id number] [place] [address] Dec, 2014 [facility] [address] [id number] [place] [address] Nov, [facility] [address] [facility] [id number] [place] [address] Nov, [facility] [address] [id number] [place] [address] Nov, [facility] [address] [id number] [place] [address] Nov, [facility] [address] [facility] [id number] [place] [address] Nov, [facility] [place] [facility] [address] [id number] [place] [address] Nov, [facility] [place] [facility] [address] [id number] [place] [address] Nov, [facility] [place] [facility] [address] [id number] [place] [address] Nov, [facility] [place] [facility] [address] [id number] [place] [address] Nov, [facility] [place] [facility] [address] [id number] [place] [address] Nov, [facility] [place] [facility] [address] [id number] [place] [address] Nov, [facility] [place] [facility] [address] [id number] [place] [address] Nov, [facility] [place] [facility] [address] [id number] [place] [address] Nov, [facility] [place] [facility] [address] [id number] [place] [address] Nov, [facility] [place] [facility] [address] [id number] [place] [address] Oct, [facility] [place] [facility] [address] [id number] [place] [address] Oct, [facility] [place] [facility] [address] [id number] [place] [address] Oct, [facility] [place] [facility] [address] [id number] [place] [address] Oct, [facility] [place] [facility] [address] [id number] [place] [address] Oct, [facility] [place] [facility] [address] [id number] [place] [address] Oct, [facility] [place] [facility] [address] [id number] [place] [address] Oct, [facility] [place] [facility] [address] [id number] [place] [address] Oct, [facility] [place] [facility] [address] [id number] [place] [address] Oct, [facility] [place] [facility] [address] [id number] [place] [address] Sep, [facility] [place] [facility] [address] [id number] [place] [address] Sep, [facility] [place] [facility] [address] [id number] [place] [address] Sep, [facility] [place] [facility] [address] [id number] [place] [address] Sep, [facility] [place] [facility] [address] [id number] [place] [address] Sep, [facility] [place] [facility] [address] [id number] [place] [address] Sep, [facility] [place] [facility] [address] [id number] [place] [address] Sep, [facility] [place] [facility] [address] [id number] [place] [address] Sep, [facility] [place] [facility] [address] [id number] [place] [address] Sep, [facility] [place] [facility] [address] [id number] [place] [address] Sep, [facility] [place] [facility] [address] [id number] [place] [address] Sep, [facility] [place] [facility] [address] [facility] [id number] [place] [address] Sep, [facility] [place] [facility] [address] [id number] [place] [address] Aug, [facility] [place] [facility] [address] [id number] [place] [address] Aug, [facility] [place] [facility] [address] [id number] [place] [address] Aug, [facility] [place] [facility] [address] [facility] [id number] [place] [address] Aug, [facility] [place] [facility] [address] [id number] [place] [address] Aug, [facility] [place] [facility] [address] [id number] [place] [address] Aug, [facility] [place] [facility] [address] [id number] [place] [address] Aug, [facility] [place] [facility] [address] [id number] [place] [address] 17 Aug, 2013 [facility] [place] [facility] [address] [id number] [place] [address] 30 Sep, 2013 [facility] [place] [facility] [address] [id number] [place] [address] 30 Sep, 2013 [facility] [place] [facility] [address] [id number] [place] [address] 30 Sep, 2013 [facility] [place] [facility] [address] [id number] [place] [address] 30 Sep, 2013 [facility] [place] [facility] [address] [id number] [place] [address] 25 Sep, 2013 [facility] [place] [facility] [address] [id number] [place] [address] 25 Sep, 2013 [facility] [place] [facility] [address] [id number] [place] [address] 15 Sep, 2013 [facility] [place] [facility] [address] [id number] [place] [address] 15 Jul, 2014 [facility] [place] [facility] [address] [id number] [place] [address] Jul, [facility] [place] [facility] [address] [facility] [id number] [place] [address] Jul, [facility] [place] [facility] [address] [id number] [place] [address] Jun, [facility] [place] [facility] [address] [id number] [facility] [address] Jun, [facility] [place] [facility] [address] [id number] [facility] [address] Jun, [facility] [place] [facility] [address] [id number] [place] [address] Jun, [facility] [place] [facility] [address] [id number] [place] [address] Jun, [facility] [place] [facility] [address] [id number] [place] [address] Jun, [facility] [place] [facility] [address] [id number] [place] [address] Jun, [facility] [place] [facility] [address] [id number] [place] [address] Jun, [facility] [place] [facility] [address] [id number] [place] [address] Jun, [facility] [place] [facility] [address] [id number] [place] [address] Jun, [facility] [place] [facility] [address] [id number] [place] [address] Jun, [facility] [place] [facility] [address] [id number] [place] [address] Jun, [facility] [place] [facility] [address] [id number] [place] [address] Jun, [facility] [place] [facility] [address] [id number] [place] [address] Jun, [facility] [place] [facility] [address] [id number] [facility] [address] Jun, [facility] [place] [facility] [address] [facility] [id number] [place] [address] Jun, [facility] [place] [facility] [address] [facility] [id number] [place] [address] Jun, [facility] [place] [facility] [address] [id number] [place] [address] Jun, [facility] [place] [facility] [address] [facility] [id number] [place] [address] Jun, [facility] [place] [facility] [address] [facility] [id number] [place] [address] Jun, [facility] [place] [facility] [address] [facility] [id number] [place] [address] Jun, [facility] [place] [facility] [address] [id number] [place] [address] Jun, [facility] [place] [facility] [address] [facility] [id number] [facility] [address] May, [facility] [place] [facility] [address] [facility] [id number] [place] [address] May, [facility] [place] [facility] [address] [id number] [place] [address] May, [facility] [place] [facility] [address] [id number] [place] [address] May, [facility] [place] [facility] [address] [facility] [id number] [place] [address] May, [facility] [place] [facility] [address] [facility] [id number] [place] [address] May, [facility] [place] [facility] [address] [id number] [place] [address] May, [facility] [place] [facility] [address] [id number] [place] [address] May, [facility] [place] [facility] [address] [id number] [place] [address] May, [facility] [place] [facility] [address] [facility] [id number] [facility] [address] May, [facility] [place] [facility] [address] [facility] [id number] [facility] [address] May, [facility] [place] [facility] [address] [facility] [id number] [place] [address] May, [facility] [place] [facility] [address] [facility] [id number] [place] [address] May, [facility] [place] [facility] [address] [facility] [id number] [place] [address] Apr, [facility] [place] [facility] [address] [facility] [id number] [place] [address] Apr, [facility] [place] [facility] [address] [id number] [place] [address] Apr, [facility] [place] [facility] [address] [id number] [place] [address] Apr, [facility] [place] [facility] [address] [facility] [id number] [place] [address] Apr, [facility] [place] [facility] [address] [id number] [place] [address] Apr, [facility] [place] [facility] [address] [id number] [place] [address] Apr, [facility] [place] [facility] [address] [id number] [place] [address] Apr, [facility] [place] [facility] [address] [facility] [id number] [place] [address] Apr, [facility] [place] [facility] [address] [facility] [id number] [place] [address] March, [facility] [place] [facility] [address] [facility] [id number] [place] [address] March, [facility] [place] [facility] [address] [id number] [place] [address] March, [facility] [place] [facility] [address] [facility] [id number] [place] [address] March, [facility] [place] [facility] [address] [id number] [place] [address] March, [facility] [place] [facility] [address] [id number] [place] [address] March, [facility] [place] [facility] [address] [id number] [place] [address] March, [facility] [place] [facility] [address] [id number] [place] [address] March, [facility] [place] [facility] [address] [id number] [place] [address] March, [facility] [place] [facility] [address] [id number] [place] [address] March, [facility] [place] [facility] [address] [id number] [place] [address] March, [facility] [place] [facility] [address] [id number] [place] [address] March, [facility] [place] [facility] [address] [id number] [place] [address] March, [facility] [place] [facility] [address] [id number] [place] [address] March, [facility] [place] [facility] [address] [id number] [place] [address] March, [facility] [place] [facility] [address] [id number] [place] [address] March, [facility] [place] [facility] [address] [id number] [place] [address] March, [facility] [place] [facility] [address] [id number] [place] [address] March, [facility] [place] [facility] [address] [id number] [place] [address] March, [facility] [place] [facility] [address] [id number] [place] [address] March, [facility] [place] [facility] [address] [facility] [id number] [place] [address] Feb, [facility] [place] [facility] [address] [facility] [id number] [place] [address] Feb, [facility] [place] [facility] [address] [id number] [place] [address] Feb, [facility] [place] [facility] [address] [id number] [place] [address] Feb, [facility] [place] [facility] [address] [facility] [id number] [place] [address] Feb, [facility] [place] [facility] [address] [id number] [place] [address] Feb, [facility] [place] [facility] [address] [id number] [place] [address] Feb, [facility] [place] [facility] [address] [id number] [place] [address] Feb, [facility] [place] [facility] [address] [id number] [place] [address] Jan, [facility] [place] [facility] [address] [id number] [place] [address] Jan, [facility] [place] [facility] [address] [id number] [place] [address] Jan, [facility] [place] [facility] [address] [id number] [place] [address] 24 Jan, 2014 [facility] [place] [facility] [address] [id number] [place] [address] Jan, [facility] [place] [facility] [address] [facility] [id number] [place] [address] Jan, [facility] [place] [facility] [address] [id number] [place] [address] Jan, [facility] [place] [facility] [address] [id number] [place] [address] Jan, [facility] [place] [facility] [address] [id number] [place] [address] Jan, [facility] [place] [facility] [address] [facility] [id number] [facility] [address] Jan, [facility] [place] [facility] [address] [facility] [id number] [place] [address] Dec, [facility] [place] [facility] [address] [id number] [place] [address] Dec, [facility] [place] [facility] [address] [id number] [place] [address] Dec, [facility] [place] [facility] [address] [facility] [id number] [facility] [address] Dec, [facility] [place] [facility] [address] [id number] [place] [address] Dec, [facility] [place] [facility] [address] [id number] [place] [address] Dec, [facility] [place] [facility] [address] [id number] [place] [address] Dec, [facility] [place] [facility] [address] [id number] [place] [address] Dec, [facility] [place] [facility] [address] [id number] [place] [address] Nov, [facility] [place] [facility] [address] [id number] [place] [address] Nov, [facility] [place] [facility] [address] [id number] [place] [address] Nov, [facility] [place] [facility] [address] [id number] [place] [address] Nov, [facility] [place] [facility] [address] [id number] [place] [address] Nov, [facility] [place] [facility] [address] [id number] [place] [address] Nov, [facility] [place] [facility] [address] [id number] [place] [address] Nov, [facility] [place] [facility] [address] [id number] [place] [address] Nov, [facility] [place] [facility] [address] [id number] [place] [address] Nov, [facility] [place] [facility] [address] [id number] [place] [address] Nov, [facility] [place] [facility] [address] [id number] [place] [address] Nov, [facility] [place] [facility] [address] [id number] [place] [address] Nov, [facility] [place] [facility] [address] [id number] [place] [address] Nov, [facility] [place] [facility] [address] [id number] [place] [address] Oct, [facility] [place] [facility] [address] [id number] [place] [address] Oct, [facility] [place] [facility] [address] [id number] [place] [address] Oct, [facility] [place] [facility] [address] [id number] [place] [address] Oct, [facility] [place] [facility] [address] [id number] [place] [address] Oct, [facility] [place] [facility] [address] [id number] [place] [address] Oct, [facility] [place] [facility] [address] [id number] [place] [address] Oct, [facility] [place] [facility] [address] [id number] [place] [address] 18 Oct, 2013 [facility] [place] [facility] [address] [id number] [place] [address] Oct, [facility] [place] [facility] [address] [id number] [place] [address] Oct, [facility] [place] [facility] [address] [id number] [place] [address] Oct, [facility] [place] [facility] [address] [id number] [place] [address] Oct, 2012 [facility] [place] [facility] [address] [id number] [place] [address] 02 Oct, 2013 [facility] [place] [facility] [address] [id number] [place] [address] 02 Oct, 2013 [facility] [place] [facility] [address] [id number] [place] [address] Sep, [facility] [place] [facility] [address] [id number] [place] [address] Sep, [facility] [place] [facility] [address] [id number] [place] [address] Sep, [facility] [place] [facility] [address] [id number] [place] [address] Sep, [facility] [place] [facility] [address] [id number] [place] [address] Sep, [facility] [place] [facility] [address] [id number] [place] [address] Sep, [facility] [place] [facility] [address] [id number] [place] [address] Sep, [facility] [place] [facility] [address] [id number] [place] [address] Sep, [facility] [place] [facility] [address] [id number] [place] [address] Sep, [facility] [place] [facility] [address] [id number] [place] [address] Sep, [facility] [place] [facility] [address] [id number] [place] [address] Aug, [facility] [place] [facility] [address] [id number] [place] [address] Aug, [facility] [place] [facility] [address] [id number] [place] [address] Aug, [facility] [place] [facility] [address] [id number] [place] [address] 24 Aug, 2012 [facility] [place] [facility] [address] [facility] [id number] [place] [address] Aug, 2012 [facility] [place] [facility] [address] [facility] [id number] [place] [address] Aug, 2012 [facility] [place] [facility] [address] [id number] [place] [address] Aug, [facility] [place] [facility] [address] [facility] [id number] [place] [address] Aug, 2012 [facility] [place] [facility] [address] [facility] [id number] [place] [address] Aug, [facility] [address] [id number] [place] [address] Aug, [facility] [address] [id number] [place] [address] 18 Aug, 2013 [facility] [address] [id number] [place] [address] 18 Aug, 2013 [facility] [address] [id number] [place] [address] 18 Aug, 2013 [facility] [address] [id number] [place] [address] 18 Aug, 2013 [facility] [address] [id number] [place] [address] 17 Aug, 2012 [facility] [address] [id number] [place] [address] 14 Aug, 2012 [facility] [address] [facility] [id number] [place] [address] 14 Aug, 2013 [facility] [address] [id number] [place] [address] Aug, 2012 [facility] [address] [id number] [place] [address] 20 Jul, 2012 [facility] [address] [id number] [place] [address] 19 Jul, 2012 [facility] [address] [id number] [facility] [address] 18 Jul, 2013 [facility] [address] [id number] [facility] [address] Jul, [facility] [address] [facility] [id number] [place] [address] Jul, [facility] [address] [id number] [place] [address] Jun, [facility] [address] [id number] [facility] [address] Jun, [facility] [address] [id number] [place] [address] Jun, [facility] [address] [id number] [place] [address] Jun, [facility] [address] [id number] [place] [address] Jun, [facility] [address] [id number] [place] [address] Jun, [facility] [address] [id number] [place] [address] Jun, [facility] [address] [id number] [place] [address] Jun, [facility] [address] [id number] [place] [address] Jun, [facility] [address] [id number] [place] [address] Jun, [facility] [address] [id number] [place] [address] May, [facility] [address] [id number] [place] [address] May, [facility] [address] [facility] [id number] [place] [address] May, [facility] [address] [id number] [place] [address] May, [facility] [address] [id number] [place] [address] May, [facility] [address] [facility] [id number] [facility] [place] [address] May, [facility] [address] [id number] [place] [address] May, [facility] [address] [id number] [place] [address] May, [facility] [address] [facility] [id number] [place] [address] May, [facility] [address] [id number] [place] [address] Apr, [facility] [address] [id number] [place] [address] Apr, [facility] [address] [id number] [place] [address] Apr, [facility] [address] [id number] [place] [address] Apr, [facility] [address] [id number] [place] [address] Apr, [facility] [address] [id number] [place] [address] Apr, [facility] [address] [id number] [place] [address] Apr, [facility] [address] [id number] [place] [address] March, [facility] [address] [id number] [place] [address] Feb, [facility] [address] [id number] [place] [address] Feb, [facility] [address] [id number] [place] [address] Feb, [facility] [address] [id number] [facility] [address] 28 Jan, 2013 [facility] [address] [facility] [id number] [facility] [address] 21 Jan, 2013 [facility] [address] [facility] [id number] [facility] [address] 19 Jan, 2013 [facility] [address] [id number] [place] [address] 14 Jan, 2013 [facility] [address] [id number] [place] [address] 12 Jan, 2013 [facility] [address] [facility] [id number] [place] [address] 08 Jan, 2013 [facility] [address] [id number] [place] [address] 07 Jan, 2013 [facility] [address] [id number] [place] [address] 04 Jan, 2013 [facility] [address] [id number] [place] [address] 28 Dec, 2012 [facility] [address] [id number] [place] [address] 25 Dec, 2012 [facility] [address] [id number] [place] [address] 13 Dec, 2012 [facility] [address] [id number] [place] [address] Dec, [facility] [address] [id number] [place] [address] 07 Dec, 2012 [facility] [address] [facility] [id number] [place] [address] 06 Dec, 2012 [facility] [address] [id number] [place] [address] 05 Dec, 2012 [facility] [address] [id number] [place] [address] Nov, [facility] [address] [id number] [place] [address] 24 Nov, 2012 [facility] [address] [id number] [place] [address] 18 Nov, 2012 [facility] [address] [id number] [place] [address] 15 Nov, 2012 [facility] [address] [id number] [place] [address] 10 Nov, 2012 [facility] [address] [id number] [place] [address] Nov, [facility] [address] [id number] [place] [address] Nov, [facility] [address] [id number] [place] [address] Oct, [facility] [address] [id number] [place] [address] Oct, [facility] [address] [id number] [place] [address] Oct, [facility] [address] [id number] [place] [address] Oct, [facility] [address] [id number] [place] [address] Oct, [facility] [address] [id number] [place] [address] Oct, [facility] [address] [id number] [place] [address] Oct, [facility] [address] [id number] [place] [address] 07 Oct, 2012 [facility] [address] [id number] [place] [address] 05 Oct, 2012 [facility] [address] [id number] [place] [address] 05 Oct, 2012 [facility] [address] [id number] [place] [address] 04 Oct, 2012 [facility] [address] [id number] [place] [address] Oct, [facility] [address] [id number] [place] [address] Sep, [facility] [address] [id number] [place] [address] Sep, [facility] [id number] [place] [address] Sep, [facility] [address] [id number] [place] [address] Sep, [facility] [address] [id number] [place] [address] Sep, [facility] [id number] [place] [address] Sep, [facility] [id number] [place] [address] Sep, [facility] [id number] [place] [address] Sep, [facility] [address] [id number] [place] [address] Sep, [facility] [id number] [place] [address] Sep, [facility] [id number] [place] [address] Sep, [facility] [id number] [place] [address] Aug, [facility] [address] [id number] [place] [address] Aug, [facility] [id number] [place] [address] Aug, [facility] [address] [id number] [place] [address] Aug, [facility] [id number] [place] [address] Aug, [facility] [address] [id number] [place] [address] Aug, [facility] [address] [id number] [place] [address] Aug, [facility] [address] [facility] [id number] [place] [address] Aug, [facility] [address] [id number] [place] [address] Aug, [facility] [address] [id number] [place] [address] Aug, [facility] [address] [id number] [place] [address] Jul, [facility] [address] [id number] [place] [address] Jul, [facility] [address] [id number] [place] [address] Jul, [facility] [address] [id number] [place] [address] Jul, [facility] [address] [id number] [place] [address] Jun, [facility] [address] [id number] [place] [address] Jun, [facility] [address] [id number] [place] [address] Jun, [facility] [address] [id number] [place] [address] Jun, [facility] [address] [facility] [id number] [place] [address] Jun, [facility] [address] [id number] [place] [address] Jun, [facility] [address] [id number] [place] [address] Jun, [facility] [address] [id number] [place] [address] May, [facility] [address] [id number] [place] [address] May, [facility] [address] [id number] [place] [address] May, [facility] [address] [id number] [place] [address] May, [facility] [address] [id number] [place] [address] May, [facility] [address] [id number] [place] [address] Apr, [facility] [address] [id number] [place] [address] Apr, [facility] [address] [id number] [place] [address] Apr, [facility] [address] [id number] [place] [address] Apr, [facility] [address] [id number] [place] [address] Apr, [facility] [address] [id number] [place] [address] March, [facility] [address] [id number] [place] [address] March, [facility] [address] [id number] [place] [address] March, [facility] [address] [id number] [place] [address] March, [facility] [address] [id number] [place] [address] March, [facility] [address] [id number] [place] [address] March, [facility] [address] [id number] [place] [address] March, [facility] [address] [id number] [place] [address] March, [facility] [address] [id number] [place] [address] March, [facility] [address] [id number] [place] [address] March, [facility] [address] [id number] [place] [address] Feb, [facility] [address] [id number] [place] [place] [address] Feb, [facility] [address] [id number] [place] [address] Feb, [facility] [address] [id number] [place] [address] Feb, [facility] [address] [id number] [place] [address] Feb, [facility] [address] [id number] [place] [address] Feb, [facility] [address] [id number] [place] [address] Feb, [facility] [address] [id number] [place] [address] Feb, [facility] [address] [id number] [place] [address] Feb, [facility] [address] [id number] [place] [address] Jan, [facility] [address] [id number] [place] [address] Jan, [facility] [address] [id number] [place] [address] Jan, [facility] [address] [id number] [place] [address] Jan, [facility] [address] [id number] [place] [address] Dec, [facility] [id number] [place] [address] Dec, [facility] [id number] [place] [address] Nov, [facility] [id number] [place] [address] Nov, [facility] [id number] [place] [address] Nov, [facility] [id number] [place] [address] Nov, [facility] [id number] [place] [address] Nov, [facility] [id number] [place] [address] Oct, [facility] [id number] [place] [address] Oct, [facility] [id number] [place] [address] Oct, [facility] [id number] [place] [address] Oct, [facility] [id number] [place] [address] Oct, [facility] [id number] [place] [address] Oct, [facility] [id number] [place] [address] Oct, [facility] [id number] [place] [address] Oct, [facility] [address] [address] Sep, IMMUNIZATIONS No Known Immunizations SOCIAL HISTORY Never Assessed REASON FOR VISIT PLAN OF CARE VITAL SIGNS MEDICATIONS Unknown Medications RESULTS No Results PROCEDURES No Known procedures INSTRUCTIONS MEDICATIONS ADMINISTERED No Known Medications MEDICAL (GENERAL) HISTORY Type Description Date Medical History aortic abdominal aneurysm moderate 5/20 18 Medical History illiac aneurysm 03/2018 Medical [...] and fever, discharged 11/27/2017 11/26/2017 Hospitalization History [facility]- Went Unrepsonsive, Hit head 2017 Hospitalization History [facility]- Back Pain 05/05/ 8
--- OUTSIDE RECORDS SUMMARY | 2020-06-18 14:57 | XMS REPORT ---
Author Author Sanjuanita Abdul Doctor Organization [facility] Address Unknown Phone Unavailable Care Team Providers Care Mail Processing Clerk Name Role Phone Migration, Doctor Unavailable Unavailable PROBLEMS Type Condition ICD9-CM Code VCK37-TU Code Onset Dates Condition S tatus SNOMED Code Problem Hypertension I10 Active 1213037 3 Problem Hyperlipidemia E78.5 Active 94119 004 Problem Coronary artery disease I25.10 Active 31602547 Problem Low back pain M54.5 Active 174650 009 Problem Other chronic pain G89.29 Active 8 6730767 Problem Ventral hernia without obstruction or gangrene K43 .9 Active 239459646 Problem Type 2 diabetes mellitus wit hout complication, without long-term current use of insulin E11.9 Active 517217984 Problem Anxiety F41.9 Active 81032118 Problem Peripheral vascular disease I73.9 Ac tive 739717668 Problem Insomnia G47.00 Active 802431337 Problem Microcytic anemia D50.9 Active 23 1214148 Problem Pharyngeal dysphagia R13.13 Active 53621292640982 Problem Other iron deficiency anemia D50.8 A ctive 84354852 Problem Reactive depression F32.9 Active 38929654 Problem Paroxysmal atrial fibrillation I48.0 Active 035048781 Problem Postmenopausal atrophic vaginitis N95.2 Active 48722231 Problem Encounter for suprapubic catheter care Z43.5 Active 502033779 Problem Neurogenic bladder N31.9 Active 3 05929949 ALLERGIES No Information ENCOUNTERS Encounter Location Date Diagnosis [facility] [id number] [place] [address] Dec, Anxiety F41.9 and Strain of right should er, subsequent encounter S46.911D [facility] [facility] [address] [address] Dec, Other iron deficiency anemia D50.8 [facility] [facility] [address] [address] 04 Dec, 2019 Via [facility] [address] [place] [id number] 04 Dec, 2019 Encounter for suprapubic catheter care Z 43.5 and Microcytic anemia D50.9 [facility] [facility] [id number] [place] [address] 03 Dec, 2019 [facility] [id number] [place] [address] Nov, Anxiety F41.9 and Strain of right should er, subsequent encounter S46.911D [place] [id number] [place] [address] Nov, Hypertension I10 Via [facility] [employer] [address] [place] [id number] Nov, Pneumonia of both lungs due to infectiou s organism, unspecified part of lung J18.9 and Suprapubic catheter Z93.59 [place] [id number] [place] [address] Nov, Hypertension I10 and Reactive depression F32.9 [facility] [facility] [id number] [place] [address] Oct, Strain of right shoulder, subsequent enc ounter S46.911D and Anxiety F41.9 [place] [id number] [place] [address] Oct, Via [facility] [employer] [address] [place] [id number] Oct, Suprapubic catheter Z93.59 and Candidias is, intertriginous B37.2 [place] [id number] [place] [address] Oct, Suprapubic catheter Z93.59 [place] [facility] [address] [place] [address] Oct, Anxiety F41.9 and Strain of right should er, subsequent encounter S46.911D [facility] [id number] [place] [address] Sep, [facility] [address] [id number] [place] [address] Sep, [facility] [address] [id number] [place] [address] Sep, Via [facility] [address] [place] [id number] Sep, Suprapubic catheter Z93.59 [facility] [address] [id number] [place] [address] Sep, Anxiety F41.9 and Strain of right should er, subsequent encounter S46.911D [facility] [address] [id number] [place] [address] Aug, [facility] [address] [id number] [place] [address] Aug, [facility] [address] [id number] [place] [address] Aug, Anxiety F41.9 and Strain of right should er, subsequent encounter S46.911D Via [facility] [employer] [address] [place] [id number] Aug, Suprapubic catheter Z93.59 [facility] [address] [id number] [place] [address] Jul, Strain of right shoulder, subsequent enc ounter S46.911D and Anxiety F41.9 [facility] [address] [id number] [place] [address] Jul, Anxiety F41.9 [facility] [address] [id number] [place] [address] Jun, [facility] [address] [id number] [place] [address] Jun, [facility] [address] [id number] [place] [address] Jun, [facility] [address] [id number] [place] [address] Jun, Strain of right shoulder, subsequent enc ounter S46.911D [place] [address] [address] Jun, Strain of right shoulder, subsequent enc ounter S46.911D [place] [address] [address] Jun, Anxiety F41.9 Via [facility] [address] [place] [id number] Jun, Neurogenic bladder N31.9 and Anxiety F41 .9 [facility] [address] [place] [id number] May, Anxiety F41.9 [place] [address] [address] May, Dysuria R30.0 [place] [address] [address] May, Strain of right shoulder, subsequent enc ounter S46.911D and Anxiety F41.9 [facility] [address] [address] Apr, [facility] [address] [place] [id number] 18 Apr, 2019 Strain of right shoulder, subsequent enc ounter S46.911D [facility] [address] [address] 14 Apr, 2019 Strain of right shoulder, subsequent enc ounter S46.911D and Anxiety F41.9 Via [facility] [employer] [address] [place] [id number] 13 Apr, 2019 Type 2 diabetes mellitus without complic ation, without long-term current use of insulin E11.9 and Neurogenic bladder N31.9 Via [facility] [employer] [address] [place] [id number] Apr, Strain of right shoulder, subsequent enc ounter S46.911D ; History of GI bleed Z87.19 ; Neurogenic bladder N31.9 and Reactive depression F32.9 [place] [id number] [place] [address] 10 Apr, 2019 Acute pain of left shoulder M25.512 [facility] [address] [address] Apr, [place] [address] [address] Apr, Anxiety F41.9 and Other chronic pain G89 .29 Via [facility] [employer] [address] [place] [id number] March, Gastrointestinal hemorrhage associated w ith acute gastritis K29.01 [place] [address] [address] March, Via [employer] [address] [place] [id number] March, Bronchitis J40 [place] [address] [address] March, Cough R05 [place] [address] [address] March, Other chronic pain G89.29 [facility] [address] [address] March, Anxiety F41.9 [place] [address] [address] March, [place] [address] [address] Feb, Other chronic pain G89.29 [facility] [address] [address] Feb, Anxiety F41.9 [place] [address] [address] Feb, Other chronic pain G89.29 [facility] [address] [place] [address] Feb, Neurogenic bladder N31.9 and Suprapubic catheter Z93.59 [place] [address] [address] Jan, Anxiety F41.9 [facility] [address] [address] Dec, Anxiety F41.9 [facility] [address] [address] Dec, Other chronic pain G89.29 and Anxiety F4 1.9 [facility] [address] [address] Dec, Via [employer] [address] [place] [id number] Dec, Neurogenic bladder N31.9 and Suprapubic catheter Z93.59 [place] [address] [address] Nov, Other chronic pain G89.29 and Anxiety F4 1.9 [place] [address] [address] Nov, Via [employer] [address] [place] [id number] Nov, Suprapubic catheter Z93.59 [place] [address] [address] Oct, Other chronic pain G89.29 and Anxiety F4 1.9 [place] [address] [address] Oct, [place] [facility] [address] [address] Oct, Suprapubic catheter Z93.59 [place] [address] [address] Oct, Via [employer] [address] [place] [id number] Oct, [place] [address] [address] Oct, Anxiety F41.9 [place] [address] [address] Oct, Anxiety F41.9 [facility] [employer] [address] [place] [id number] Oct, Other chronic pain G89.29 [facility] [address] [address] Sep, Other chronic pain G89.29 Via [facility] [employer] [address] [place] [id number] Sep, Suprapubic catheter Z93.59 and Cervicalg ia M54.2 [facility] [address] [address] Sep, [facility] [address] [address] Sep, [facility] [address] [address] Sep, Via [employer] [address] [place] [address] Aug, Cystitis N30.90 [facility] [address] [address] Aug, [facility] [address] [address] Aug, Other chronic pain G89.29 [facility] [address] [address] Aug, Via [facility] [employer] [address] [place] [id number] Aug, Encounter for suprapubic catheter care Z 43.5 [facility] [address] [address] Jul, Via [employer] [address] [place] [id number] Jul, [facility] [address] [address] Jul, Other chronic pain G89.29 [place] [address] [address] Jul, [facility] [address] [address] Jul, Via [employer] [address] [place] [id number] Jun, Postmenopausal atrophic vaginitis N95.2 [place] [facility] [address] [address] Jun, Other chronic pain G89.29 [facility] [address] [address] Jun, Via [employer] [address] [place] [address] May, Anxiety F41.9 ; Type 2 diabetes mellitus without complication, without long-term current use of insulin E11.9 ; Hypertension I10 ; Low back pain M54.5 ; Paroxysmal atrial fibrillation I48.0 and 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 [place] [address] [address] May, Other chronic pain G89.29 Via [employer] [address] [place] [id number] May, Low back pain M54.5 [facility] [facility] [address] [address] May, [place] [facility] [address] [address] Apr, Other chronic pain G89.29 [facility] [address] [address] Apr, [place] [facility] [address] [address] Apr, Via [employer] [address] [place] [id number] Apr, Closed compression fracture of L3 lumbar vertebra with routine healing, subsequent encounter S32.030D [facility] [employer] [address] [place] [id number] 14 Apr, 2018 Low back pain M54.5 Via [employer] [address] [place] [id number] Apr, Coccydynia M53.3 [facility] [address] [place] [address] March, [facility] [address] [address] March, Other chronic pain G89.29 [facility] [address] [place] [address] March, [facility] [address] [address] March, [facility] [address] [address] Feb, [facility] [address] [address] Feb, Other chronic pain G89.29 Via [employer] [address] [place] [id number] Feb, Other chronic pain G89.29 and Anxiety F4 1.9 [facility] [address] [place] [address] Feb, [facility] [address] [place] [address] Jan, [facility] [address] [address] Jan, [facility] [address] [place] [address] Jan, [facility] [address] [address] Jan, [facility] [address] [address] Dec, Via [employer] [address] [place] [address] Dec, Peripheral vascular disease I73.9 ; 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 ; Other chronic pain G89.29 ; Anxiety F41.9 ; Reactive depression F32.9 ; Insomnia G47.00 and Type 2 diabetes mellitus without complication, without long-term current use of insulin E11.9 [facility] ADRIENNE [place] [id number] [place] [address] Nov, [place] [address] [id number] [place] [id number] Nov, Anxiety F41.9 [place] [facility] [id number] [place] [address] Nov, [place] [address] [id number] [place] [id number] Nov, Anxiety F41.9 Via [employer] [address] [place] [id number] Nov, Status post surgery Z98.890 ; Confused R 41.0 ; Anxiety F41.9 and Other chronic pain G89.29 [place] [address] [id number] [place] [address] Nov, Other chronic pain G89.29 [facility] [facility] [address] [address] Oct, [place] [address] [id number] [place] [id number] Oct, Other chronic pain G89.29 [facility] [address] [address] Oct, Anxiety F41.9 [place] [address] [id number] [place] [id number] Sep, Other chronic pain G89.29 [place] [address] [id number] [place] [id number] Sep, Via [employer] [address] [place] [id number] Aug, Dysuria R30.0 and Anxiety F41.9 [facility] [id number] [place] [address] Aug, [facility] [id number] [place] [id number] Aug, Other chronic pain G89.29 [facility] [address] [place] [address] Jul, Other chronic pain G89.29 [facility] [id number] [place] [id number] Jun, [place] [id number] [place] [address] Jun, Other chronic pain G89.29 [facility] [address] [place] [address] Jun, [facility] [address] [address] May, Other chronic pain G89.29 [facility] [address] [address] Apr, Other chronic pain G89.29 Via [facility] [address] [place] [address] Apr, Reactive depression F32.9 and Pharyngeal dysphagia R13.13 [facility] [address] [address] Apr, Urinary tract infection without hematuri a, site unspecified N39.0 [facility] [id number] [place] [address] March, Other chronic pain G89.29 [facility] [address] [address] Feb, Other chronic pain G89.29 [facility] [address] [place] [address] Feb, [facility] [id number] [place] [id number] Feb, [facility] [employer] [address] [place] [address] Feb, Dysuria R30.0 and Ventral hernia without obstruction or gangrene K43.9 [facility] [address] [address] Jan, Other chronic pain G89.29 [facility] [address] [id number] [place] [id number] Dec, Other chronic pain G89.29 [facility] [address] [address] Nov, Other chronic pain G89.29 [facility] [employer] [address] [place] [id number] Nov, Lymphadenitis I88.9 [facility] [address] [address] Nov, Other chronic pain G89.29 [place] [address] [address] Nov, [facility] [address] [id number] [place] [address] Nov, Other chronic pain G89.29 [facility] [address] [place] [id number] Oct, Low back pain M54.5 ; Hypertension I10 a nd Type 2 diabetes mellitus without complication, without long-term current use of insulin E11.9 [facility] [address] [address] Oct, [facility] [address] [address] Oct, [facility] [address] [address] Oct, [facility] [address] [address] Oct, [facility] [address] [address] Sep, [facility] [id number] [place] [address] Sep, [facility] [address] [place] [address] Aug, Other chronic pain G89.29 [facility] [id number] [place] [address] Jul, [facility] [address] [place] [address] Jul, [facility] [id number] [place] [address] Jul, [facility] [address] [address] Jun, [facility] [address] [address] Jun, Via [facility] [address] [place] [id number] Jun, Low back pain M54.5 ; Other chronic pain G89.29 and Coronary artery disease I25.10 [facility] [id number] [place] [address] Jun, [facility] [id number] [place] [address] May, [facility] [address] [address] May, [facility] [id number] [place] [address] May, Other chronic pain G89.29 [facility] [address] [place] [address] May, [facility] [address] [place] [address] Apr, [facility] [address] [place] [address] Apr, Acute cystitis without hematuria N30.00 [facility] [address] [address] 16 Apr, 2016 Acute cystitis without hematuria N30.00 ; Coronary artery disease I25.10 ; Low back pain M54.5 and Other chronic pain G89.29 [facility] [address] [address] 13 Apr, 2016 Other chronic pain G89.29 [facility] [address] [address] March, Other chronic pain G89.29 [facility] [address] [address] Feb, [facility] [address] [address] Feb, Arthritis M19.90 [facility] [address] [address] Feb, [facility] [address] [address] Jan, [facility] [address] [address] Jan, [facility] [address] [address] Jan, Other chronic pain G89.29 [facility] [address] [address] Jan, Hypertension I10 ; Coronary artery disea se I25.10 and Insomnia G47.00 [facility] [address] [address] Jan, [facility] [address] [address] Dec, Right hip pain M25.551 [facility] [address] [address] Dec, [facility] [address] [address] Dec, [facility] [address] [place] [address] Dec, [facility] [address] [place] [address] Dec, Other chronic pain G89.29 [facility] [address] [address] Dec, [facility] [address] [address] Nov, [facility] [address] [address] Nov, Other chronic pain G89.29 [facility] [address] [address] Nov, Right hip pain M25.551 and Coronary karissa ry disease I25.10 [facility] [address] [address] Nov, Other chronic pain G89.29 [facility] [address] [address] Oct, [facility] [address] [address] Oct, [facility] [address] [address] Sep, [facility] [address] [address] Sep, [facility] [address] [address] Aug, [facility] [address] [address] Aug, Hypertension I10 ; Coronary artery disea se I25.10 and Arthritis M19.90 [facility] [address] [address] Jun, [facility] [address] [id number] [place] [address] Jun, Essential hypertension, benign 401.1 ; O ther chronic pain 338.29 and Chronic airway obstruction, not elsewhere classified 496 [facility] [address] [id number] [place] [address] Jun, [facility] [address] [id number] [place] [address] Jun, [facility] [id number] [place] [address] Jun, [facility] [address] [id number] [place] [address] May, [facility] [id number] [place] [address] May, [facility] [id number] [place] [address] Apr, [facility] [id number] [place] [address] Apr, [facility] [id number] [place] [address] Apr, [facility] [id number] [place] [address] March, [facility] [id number] [place] [address] March, [facility] [id number] [place] [address] March, [facility] [address] [facility] [place] [address] March, [facility] [id number] [place] [address] March, Sialadenitis 527.2 [facility] [address] [facility] [place] [address] Feb, [facility] [id number] [place] [address] Feb, [facility] [address] [facility] [id number] [place] [address] 29 Feb, 2014 [facility] [address] [id number] [place] [address] 14 Feb, 2015 [facility] [address] [id number] [place] [address] 13 Feb, 2015 [facility] [address] [id number] [place] [address] Jan, [facility] [address] [facility] [id number] [place] [address] Jan, [facility] [address] [id number] [place] [address] Jan, [facility] [address] [id number] [place] [address] Jan, [facility] [address] [id number] [place] [address] Jan, [facility] [address] [id number] [place] [address] Jan, [facility] [address] [id number] [place] [address] Dec, 2014 [facility] [address] [id number] [place] [address] Dec, 2014 [facility] [address] [id number] [place] [address] Dec, 2014 [facility] [address] [id number] [place] [address] Dec, 2014 [facility] [address] [id number] [place] [address] Dec, 2014 [facility] [address] [id number] [place] [address] Dec, 2014 [facility] [address] [id number] [place] [address] Nov, [facility] [address] [id number] [place] [address] Nov, [facility] [address] [id number] [place] [address] Nov, [facility] [address] [id number] [place] [address] Nov, [facility] [address] [id number] [place] [address] Nov, [facility] [address] [id number] [place] [address] Nov, [facility] [place] [facility] [address] [id number] [place] [address] Nov, [facility] [place] [facility] [address] [id number] [place] [address] Nov, [facility] [place] [facility] [address] [id number] [place] [address] Nov, [facility] [place] [facility] [address] [id number] [place] [address] Nov, [facility] [place] [facility] [address] [id number] [place] [address] Nov, [facility] [place] [facility] [address] [id number] [place] [address] Nov, [facility] [place] [facility] [address] [facility] [id number] [place] [address] Nov, [facility] [place] [facility] [address] [id number] [place] [address] Nov, [facility] [place] [facility] [address] [facility] [id number] [place] [address] Oct, [facility] [place] [facility] [address] [facility] [id number] [place] [address] Oct, [facility] [place] [facility] [address] [facility] [id number] [place] [address] Oct, [facility] [place] [facility] [address] [facility] [id number] [place] [address] Oct, [facility] [place] [facility] [address] [facility] [id number] [place] [address] Oct, [facility] [place] [facility] [address] [facility] [id number] [place] [address] Oct, [facility] [place] [facility] [address] [facility] [id number] [place] [address] Oct, [facility] [place] [facility] [address] [facility] [id number] [place] [address] Oct, [facility] [place] [facility] [address] [facility] [id number] [place] [address] Oct, [facility] [place] [facility] [address] [facility] [id number] [place] [address] Sep, [facility] [place] [facility] [address] [facility] [id number] [place] [address] Sep, [facility] [place] [facility] [address] [facility] [id number] [place] [address] Sep, [facility] [place] [facility] [address] [facility] [id number] [place] [address] Sep, [facility] [place] [facility] [address] [facility] [id number] [place] [address] Sep, [facility] [place] [facility] [address] [facility] [id number] [place] [address] Sep, [facility] [place] [facility] [address] [facility] [id number] [place] [address] Sep, [facility] [place] [facility] [address] [facility] [id number] [place] [address] Sep, [facility] [place] [facility] [address] [id number] [place] [address] Sep, [facility] [place] [facility] [address] [facility] [id number] [place] [address] Sep, [facility] [place] [facility] [address] [facility] [id number] [place] [address] Sep, [facility] [place] [facility] [address] [facility] [id number] [place] [address] Sep, [facility] [place] [facility] [address] [facility] [id number] [place] [address] 30 Aug, 2014 [facility] [place] [facility] [address] [facility] [id number] [place] [address] 30 Aug, 2014 [facility] [place] [facility] [address] [id number] [place] [address] Aug, [facility] [place] [facility] [address] [facility] [id number] [place] [address] Aug, [facility] [place] [facility] [address] [facility] [id number] [place] [address] Aug, [facility] [place] [facility] [address] [facility] [id number] [place] [address] Aug, [facility] [place] [facility] [address] [facility] [id number] [place] [address] Aug, [facility] [place] [facility] [address] [facility] [id number] [place] [address] 17 Aug, 2013 [facility] [place] [facility] [address] [facility] [id number] [place] [address] 30 Sep, 2013 [facility] [place] [facility] [address] [id number] [place] [address] 30 Sep, 2013 [facility] [place] [facility] [address] [facility] [id number] [place] [address] 30 Sep, 2013 [facility] [place] [facility] [address] [id number] [place] [address] 30 Sep, 2013 [facility] [place] [facility] [address] [facility] [id number] [place] [address] 25 Sep, 2013 [facility] [place] [facility] [address] [facility] [id number] [place] [address] 25 Sep, 2013 [facility] [place] [facility] [address] [facility] [id number] [place] [address] 15 Sep, 2013 [facility] [place] [facility] [address] [facility] [id number] [place] [address] 15 Sep, 2013 [facility] [place] [facility] [address] [facility] [id number] [place] [address] Jul, [facility] [place] [facility] [address] [id number] [facility] [place] [address] Jul, [facility] [place] [facility] [address] [facility] [id number] [place] [address] Jun, [facility] [place] [facility] [address] [facility] [id number] [place] [address] Jun, [facility] [place] [facility] [address] [facility] [id number] [place] [address] Jun, [facility] [place] [facility] [address] [id number] [facility] [place] [address] Jun, [facility] [place] [facility] [address] [facility] [id number] [place] [address] Jun, [facility] [place] [facility] [address] [id number] [place] [address] Jun, [facility] [place] [facility] [address] [facility] [id number] [place] [address] Jun, [facility] [place] [facility] [address] [id number] [place] [address] Jun, [facility] [place] [facility] [address] [facility] [id number] [place] [address] Jun, [facility] [place] [facility] [address] [facility] [id number] [place] [address] Jun, [facility] [place] [facility] [address] [facility] [id number] [place] [address] Jun, [facility] [place] [facility] [address] [id number] [place] [address] Jun, [facility] [place] [facility] [address] [id number] [place] [address] Jun, [facility] [place] [facility] [address] [facility] [id number] [place] [address] Jun, [facility] [place] [facility] [address] [facility] [id number] [place] [address] Jun, [facility] [place] [facility] [address] [id number] [place] [address] Jun, [facility] [place] [facility] [address] [facility] [id number] [place] [address] Jun, [facility] [place] [facility] [address] [facility] [id number] [place] [address] Jun, [facility] [place] [facility] [address] [facility] [id number] [facility] [place] [address] Jun, [facility] [place] [facility] [address] [facility] [id number] [place] [address] Jun, [facility] [place] [facility] [address] [facility] [id number] [place] [address] Jun, [facility] [place] [facility] [address] [facility] [id number] [place] [address] Jun, [facility] [place] [facility] [address] [id number] [place] [address] May, [facility] [place] [facility] [address] [facility] [id number] [place] [address] May, [facility] [place] [facility] [address] [facility] [id number] [place] [address] May, [facility] [place] [facility] [address] [facility] [id number] [place] [address] May, [facility] [place] [facility] [address] [facility] [id number] [place] [address] May, [facility] [place] [facility] [address] [facility] [id number] [place] [address] May, [facility] [place] [facility] [address] [facility] [id number] [place] [address] May, [facility] [place] [facility] [address] [facility] [id number] [place] [address] May, [facility] [place] [facility] [address] [facility] [id number] [place] [address] May, [facility] [place] [facility] [address] [id number] [place] [address] May, [facility] [place] [facility] [address] [id number] [facility] [place] [address] May, [facility] [place] [facility] [address] [facility] [id number] [facility] [place] [address] May, [facility] [place] [facility] [address] [facility] [id number] [facility] [place] [address] May, [facility] [place] [facility] [address] [id number] [facility] [place] [address] Apr, [facility] [place] [facility] [address] [facility] [id number] [facility] [place] [address] Apr, [facility] [place] [facility] [address] [facility] [id number] [place] [address] Apr, [facility] [place] [facility] [address] [id number] [place] [address] Apr, [facility] [place] [facility] [address] [facility] [id number] [facility] [place] [address] Apr, [facility] [place] [facility] [address] [facility] [id number] [place] [address] Apr, [facility] [place] [facility] [address] [facility] [id number] [place] [address] Apr, [facility] [place] [facility] [address] [facility] [id number] [place] [address] Apr, [facility] [place] [facility] [address] [facility] [id number] [place] [address] Apr, [facility] [place] [facility] [address] [facility] [id number] [place] [address] March, [facility] [place] [facility] [address] [id number] [place] [address] March, [facility] [place] [facility] [address] [facility] [id number] [place] [address] March, [facility] [place] [facility] [address] [facility] [id number] [place] [address] March, [facility] [place] [facility] [address] [facility] [id number] [place] [address] March, [facility] [place] [facility] [address] [id number] [place] [address] March, [facility] [place] [facility] [address] [id number] [place] [address] March, [facility] [place] [facility] [address] [facility] [id number] [place] [address] March, [facility] [place] [facility] [address] [facility] [id number] [place] [address] March, [facility] [place] [facility] [address] [id number] [place] [address] March, [facility] [place] [facility] [address] [facility] [id number] [place] [address] March, [facility] [place] [facility] [address] [id number] [place] [address] March, [facility] [place] [facility] [address] [id number] [place] [address] March, [facility] [place] [facility] [address] [id number] [place] [address] March, [facility] [place] [facility] [address] [id number] [place] [address] March, [facility] [place] [facility] [address] [id number] [place] [address] March, [facility] [place] [facility] [address] [id number] [place] [address] March, [facility] [place] [facility] [address] [id number] [place] [address] March, [facility] [place] [facility] [address] [id number] [place] [address] March, [facility] [place] [facility] [address] [id number] [place] [address] March, [facility] [place] [facility] [address] [id number] [place] [address] Feb, [facility] [place] [facility] [address] [facility] [id number] [place] [address] Feb, [facility] [place] [facility] [address] [id number] [place] [address] Feb, [facility] [place] [facility] [address] [id number] [place] [address] Feb, [facility] [place] [facility] [address] [id number] [place] [address] Feb, [facility] [place] [facility] [address] [id number] [place] [address] Feb, [facility] [place] [facility] [address] [id number] [place] [address] Feb, [facility] [place] [facility] [address] [id number] [place] [address] Feb, [facility] [place] [facility] [address] [id number] [place] [address] Jan, [facility] [place] [facility] [address] [id number] [place] [address] Jan, [facility] [place] [facility] [address] [id number] [place] [address] Jan, [facility] [place] [facility] [address] [id number] [place] [address] Jan, [facility] [place] [facility] [address] [id number] [place] [address] Jan, [facility] [place] [facility] [address] [id number] [place] [address] Jan, [facility] [place] [facility] [address] [facility] [id number] [place] [address] Jan, [facility] [place] [facility] [address] [id number] [place] [address] Jan, [facility] [place] [facility] [address] [id number] [place] [address] Jan, [facility] [place] [facility] [address] [id number] [place] [address] Jan, [facility] [place] [facility] [address] [facility] [id number] [place] [address] Dec, [facility] [place] [facility] [address] [id number] [place] [address] Dec, [facility] [place] [facility] [address] [id number] [place] [address] Dec, [facility] [place] [facility] [address] [id number] [place] [address] Dec, [facility] [place] [facility] [address] [id number] [place] [address] Dec, [facility] [place] [facility] [address] [id number] [place] [address] Dec, [facility] [place] [facility] [address] [id number] [place] [address] Dec, [facility] [place] [facility] [address] [id number] [place] [address] Dec, [facility] [place] [facility] [address] [id number] [place] [address] Nov, [facility] [place] [facility] [address] [id number] [place] [address] Nov, [facility] [place] [facility] [address] [id number] [place] [address] Nov, [facility] [place] [facility] [address] [id number] [place] [address] Nov, [facility] [place] [facility] [address] [id number] [place] [address] Nov, [facility] [place] [facility] [address] [id number] [place] [address] Nov, [facility] [place] [facility] [address] [id number] [place] [address] Nov, [facility] [place] [facility] [address] [id number] [place] [address] Nov, [facility] [place] [facility] [address] [id number] [place] [address] Nov, [facility] [place] [facility] [address] [id number] [place] [address] Nov, [facility] [place] [facility] [address] [id number] [place] [address] Nov, [facility] [place] [facility] [address] [id number] [place] [address] Nov, [facility] [place] [facility] [address] [id number] [place] [address] Nov, [facility] [place] [facility] [address] [id number] [place] [address] Oct, [facility] [place] [facility] [address] [id number] [place] [address] Oct, [facility] [place] [facility] [address] [id number] [place] [address] Oct, [facility] [place] [facility] [address] [id number] [place] [address] Oct, [facility] [place] [facility] [address] [id number] [place] [address] Oct, [facility] [place] [facility] [address] [id number] [place] [address] Oct, [facility] [place] [facility] [address] [id number] [place] [address] 18 Oct, 2013 [facility] [place] [facility] [address] [id number] [place] [address] 18 Oct, 2013 [facility] [place] [facility] [address] [id number] [place] [address] 17 Oct, 2013 [facility] [place] [facility] [address] [id number] [place] [address] 17 Oct, 2013 [facility] [place] [facility] [address] [id number] [place] [address] Oct, [facility] [place] [facility] [address] [id number] [place] [address] Oct, [facility] [place] [facility] [address] [id number] [place] [address] Oct, [facility] [place] [facility] [address] [id number] [place] [address] Oct, [facility] [place] [facility] [address] [id number] [place] [address] Sep, [facility] [place] [facility] [address] [id number] [place] [address] Sep, [facility] [place] [facility] [address] [id number] [place] [address] Sep, [facility] [place] [facility] [address] [id number] [place] [address] Sep, [facility] [place] [facility] [address] [id number] [place] [address] Sep, [facility] [place] [facility] [address] [id number] [place] [address] Sep, [facility] [place] [facility] [address] [id number] [place] [address] Sep, [facility] [place] [facility] [address] [id number] [place] [address] Sep, [facility] [place] [facility] [address] [id number] [place] [address] Sep, [facility] [place] [facility] [address] [id number] [place] [address] Sep, [facility] [place] [facility] [address] [id number] [place] [address] Aug, [facility] [place] [facility] [address] [id number] [place] [address] Aug, [facility] [place] [facility] [address] [id number] [place] [address] Aug, [facility] [place] [facility] [address] [id number] [place] [address] Aug, [facility] [place] [facility] [address] [id number] [place] [address] 23 Aug, 2012 [facility] [place] [facility] [address] [facility] [id number] [place] [address] 23 Aug, 2012 [facility] [place] [facility] [address] [id number] [place] [address] 23 Aug, 2012 [facility] [place] [facility] [address] [id number] [place] [address] 23 Aug, 2012 [facility] [place] [facility] [address] [id number] [place] [address] Aug, 2012 [facility] [place] [facility] [address] [facility] [id number] [place] [address] 22 Aug, 2012 [facility] [place] [facility] [address] [id number] [place] [address] 18 Aug, 2012 [facility] [place] [facility] [address] [id number] [place] [address] 18 Aug, 2012 [facility] [place] [facility] [address] [id number] [place] [address] 18 Aug, 2012 [facility] [place] [facility] [address] [id number] [place] [address] 18 Aug, 2013 [facility] [place] [facility] [address] [id number] [place] [address] 17 Aug, 2012 [facility] [place] [facility] [address] [id number] [place] [address] 14 Aug, 2013 [facility] [place] [facility] [address] [id number] [place] [address] 14 Aug, 2012 [facility] [place] [facility] [address] [facility] [id number] [place] [address] Aug, 2012 [facility] [place] [facility] [address] [id number] [place] [address] 20 Jul, 2012 [facility] [place] [facility] [address] [id number] [place] [address] 19 Jul, 2012 [facility] [place] [facility] [address] [id number] [place] [address] 18 Jul2012 [facility] [place] [facility] [address] [id number] [facility] [place] [address] Jul, [facility] [address] [id number] [facility] [place] [address] Jul, [facility] [address] [facility] [id number] [facility] [place] [address] Jun, [facility] [address] [id number] [facility] [place] [address] Jun, [facility] [address] [id number] [facility] [place] [address] Jun, [facility] [address] [id number] [place] [address] Jun, [facility] [address] [id number] [place] [address] Jun, [facility] [address] [id number] [place] [address] Jun, [facility] [address] [id number] [facility] [place] [address] Jun, [facility] [address] [id number] [place] [address] Jun, [facility] [address] [id number] [place] [address] Jun, [facility] [address] [id number] [place] [address] Jun, [facility] [address] [id number] [place] [address] May, [facility] [address] [id number] [place] [address] May, [facility] [address] [id number] [place] [address] May, [facility] [address] [id number] [place] [address] May, [facility] [address] [id number] [place] [address] May, [facility] [address] [facility] [id number] [facility] [place] [address] May, [facility] [address] [facility] [id number] [facility] [place] [address] May, [facility] [address] [facility] [id number] [place] [address] May, [facility] [address] [id number] [facility] [place] [address] May, [facility] [address] [facility] [id number] [place] [address] Apr, [facility] [address] [id number] [facility] [place] [address] Apr, [facility] [address] [id number] [place] [address] Apr, [facility] [address] [id number] [place] [address] Apr, [facility] [address] [id number] [place] [address] Apr, [facility] [address] [id number] [place] [address] Apr, [facility] [address] [id number] [place] [address] Apr, [facility] [address] [id number] [place] [address] March, [facility] [address] [facility] [id number] [place] [address] Feb, [facility] [address] [facility] [id number] [place] [address] Feb, [facility] [address] [facility] [id number] [place] [address] Feb, [facility] [address] [id number] [facility] [place] [address] Jan, [facility] [address] [id number] [facility] [place] [address] 21 Jan, 2013 [facility] [address] [facility] [id number] [facility] [place] [address] 19 Jan, 2013 [facility] [address] [id number] [place] [address] 14 Jan, 2013 [facility] [address] [id number] [place] [address] 12 Jan, 2013 [facility] [address] [id number] [place] [address] 08 Jan, 2013 [facility] [address] [id number] [place] [address] 07 Jan, 2013 [facility] [address] [id number] [place] [address] 04 Jan, 2013 [facility] [address] [id number] [place] [address] 28 Dec, 2012 [facility] [address] [id number] [place] [address] 25 Dec, 2012 [facility] [address] [id number] [place] [address] 13 Dec, 2012 [facility] [address] [id number] [place] [address] 11 Dec, 2012 [facility] [address] [id number] [place] [address] 07 Dec, 2012 [facility] [address] [id number] [place] [address] 06 Dec, 2012 [facility] [address] [id number] [place] [address] 05 Dec, 2012 [facility] [address] [id number] [place] [address] 31 Nov, 2012 [facility] [address] [id number] [place] [address] 24 Nov, 2012 [facility] [address] [id number] [place] [address] Nov, [facility] [address] [id number] [place] [address] 15 Nov, 2012 [facility] [address] [id number] [place] [address] Nov, [facility] [address] [id number] [place] [address] 10 Nov, 2012 [facility] [address] [id number] [place] [address] Nov, [facility] [address] [id number] [place] [address] Oct, [facility] [address] [id number] [place] [address] Oct, [facility] [address] [id number] [place] [address] Oct, [facility] [address] [id number] [place] [address] Oct, [facility] [address] [id number] [place] [address] Oct, [facility] [address] [id number] [place] [address] Oct, [facility] [address] [id number] [place] [address] Oct, [facility] [address] [id number] [place] [address] Oct, [facility] [address] [id number] [place] [address] 05 Oct, 2012 [facility] [address] [id number] [place] [address] 05 Oct, 2012 [facility] [address] [id number] [place] [address] Oct, [facility] [address] [id number] [place] [address] Oct, [facility] [address] [id number] [place] [address] Sep, [facility] [address] [id number] [place] [address] Sep, [facility] [address] [id number] [place] [address] Sep, [facility] [address] [id number] [place] [address] Sep, [facility] [address] [id number] [place] [address] Sep, [facility] [address] [id number] [place] [address] Sep, [facility] [address] [id number] [place] [address] Sep, [facility] [address] [id number] [place] [address] Sep, [facility] [address] [id number] [place] [address] Sep, [facility] [address] [id number] [place] [address] Sep, [facility] [address] [id number] [place] [address] Sep, [facility] [address] [id number] [place] [address] Aug, [facility] [id number] [place] [address] Aug, [facility] [address] [id number] [place] [address] Aug, [facility] [address] [id number] [place] [address] Aug, [facility] [address] [id number] [place] [address] Aug, [facility] [address] [id number] [place] [address] Aug, [facility] [address] [id number] [place] [address] Aug, [facility] [address] [facility] [id number] [place] [address] Aug, [facility] [address] [id number] [place] [address] Aug, [facility] [address] [id number] [place] [address] Aug, [facility] [address] [id number] [place] [address] Jul, [facility] [address] [facility] [id number] [place] [address] Jul, [facility] [address] [id number] [place] [address] Jul, [facility] [address] [id number] [place] [address] Jul, [facility] [address] [id number] [place] [address] Jun, [facility] [address] [id number] [place] [address] Jun, [facility] [address] [id number] [place] [address] Jun, [facility] [address] [id number] [place] [address] Jun, [facility] [address] [id number] [place] [address] Jun, [facility] [address] [facility] [id number] [place] [address] Jun, [facility] [address] [id number] [place] [address] Jun, [facility] [address] [id number] [place] [address] May, [facility] [address] [id number] [place] [address] May, [facility] [address] [id number] [place] [address] May, [facility] [address] [id number] [place] [address] May, [facility] [address] [id number] [place] [address] May, [facility] [address] [id number] [place] [address] Apr, [facility] [address] [facility] [id number] [place] [address] Apr, [facility] [address] [id number] [place] [address] Apr, [facility] [address] [id number] [place] [address] Apr, [facility] [address] [id number] [place] [address] Apr, [facility] [address] [id number] [place] [address] March, [facility] [address] [id number] [place] [address] March, [facility] [address] [id number] [place] [address] March, [facility] [address] [id number] [place] [address] March, [facility] [address] [id number] [place] [address] March, [facility] [address] [id number] [place] [address] March, [facility] [address] [id number] [place] [address] March, [facility] [address] [id number] [place] [address] March, [facility] [address] [id number] [place] [address] March, [facility] [address] [id number] [place] [address] March, [facility] [address] [id number] [place] [address] Feb, [facility] [address] [id number] [place] [address] Feb, [facility] [address] [id number] [place] [address] Feb, [facility] [address] [id number] [place] [address] Feb, [facility] [address] [id number] [place] [address] Feb, [facility] [address] [id number] [place] [address] Feb, [facility] [address] [id number] [place] [address] Feb, [facility] [address] [id number] [place] [address] Feb, [facility] [address] [id number] [place] [address] Feb, [facility] [address] [id number] [place] [address] Jan, [facility] [address] [id number] [place] [address] Jan, [facility] [address] [id number] [place] [address] Jan, [facility] [address] [id number] [place] [address] Jan, [facility] [address] [id number] [place] [address] Dec, [facility] [address] [id number] [place] [address] Dec, [facility] [id number] [place] [address] Nov, [facility] [id number] [place] [address] Nov, [facility] [id number] [place] [address] Nov, [facility] [id number] [place] [address] Nov, [facility] [id number] [place] [address] Nov, [facility] [id number] [place] [address] Oct, [facility] [id number] [place] [address] Oct, [facility] [id number] [place] [address] Oct, [facility] [id number] [place] [address] Oct, [facility] [id number] [place] [address] Oct, [facility] [id number] [place] [address] Oct, [facility] [id number] [place] [address] Oct, [facility] [id number] [place] [address] Oct, [facility] [id number] [place] [address] Sep, IMMUNIZATIONS No Known Immunizations SOCIAL HISTORY Never Assessed REASON FOR VISIT PLAN OF CARE VITAL SIGNS Height 62 in 2013-12-30 Weight 179.3 lbs 2013-12-30 Temperature 98.7 degrees Fahrenheit 2013-12-30 Heart Rate 84 bpm 2013-12-30 Respiratory Rate 22 2013-12-30 Blood pressure systolic 130 mmHg 2013-12-30 Blood pressure diastolic 70 mmHg 2013-12-30 MEDICATIONS Unknown Medications RESULTS No Results PROCEDURES Procedure Date Ordered Result Body Site MEASURE BLOOD OXYGEN LEVEL Dec 30, 2013 INSTRUCTIONS MEDICATIONS ADMINISTERED No Known Medications [...] History No Surgical history information Hospitalization History [facility]- Urosepsis, ab d pain and fever, discharged 11/27/2017 11/26/2017 Hospitalization History [facility]- Went Unrepsonsive, Hit head 2017 Hospitalization History [facility]- Back Pain 05/05/ 8
--- OUTSIDE RECORDS SUMMARY | 2020-06-18 14:58 | XMS REPORT ---
Author Author Loi JOHNSONothy SHARIF [facility] Address [address] [place] [address] Care Team Providers Care Piece Dyer Name Role Phone ELIZABETHROYASHARIF Unavailable PROBLEMS Type Condition ICD9-CM Code WDV47-ET Code Onset Dates Condition S tatus SNOMED Code Problem Hypertension I10 Active 2424847 3 Problem Hyperlipidemia E78.5 Active 85608 004 Problem Coronary artery disease I25.10 Active 76688453 Problem Low back pain M54.5 Active 318602 009 Problem Other chronic pain G89.29 Active 8 9961820 Problem Ventral hernia without obstruction or gangrene K43 .9 Active 295664904 Problem Type 2 diabetes mellitus wit hout complication, without long-term current use of insulin E11.9 Active 439723134 Problem Anxiety F41.9 Active 70020948 Problem Peripheral vascular disease I73.9 Ac tive 947203499 Problem Insomnia G47.00 Active 801417337 Problem Microcytic anemia D50.9 Active 23 2617240 Problem Pharyngeal dysphagia R13.13 Active [id number] Problem Other iron deficiency anemia D50.8 A ctive 77372483 Problem Reactive depression F32.9 Active 02045467 Problem Paroxysmal atrial fibrillation I48.0 Active 136105063 Problem Postmenopausal atrophic vaginitis N95.2 Active 73192729 Problem Encounter for suprapubic catheter care Z43.5 Active 996593759 Problem Neurogenic bladder N31.9 Active 3 50223714 ALLERGIES No Information ENCOUNTERS Encounter Location Date Diagnosis [facility] [id number] [place] [address] Dec, Other iron deficiency anemia D50.8 [facility] [address] [id number] [place] [address] Dec, Via [facility] [address] [place] [id number] Dec, Encounter for suprapubic catheter care Z 43.5 and Microcytic anemia D50.9 [place] [address] [address] Dec, [place] [address] [address] Nov, Anxiety F41.9 and Strain of right should er, subsequent encounter S46.911D [place] [address] [address] Nov, Hypertension I10 Via [facility] [address] [place] [id number] Nov, Pneumonia of both lungs due to infectiou s organism, unspecified part of lung J18.9 and Suprapubic catheter Z93.59 [place] [address] [address] Nov, Hypertension I10 and Reactive depression F32.9 [place] [address] [address] Oct, Strain of right shoulder, subsequent enc ounter S46.911D and Anxiety F41.9 [place] [address] [address] Oct, Via [facility] [address] [place] [id number] Oct, Suprapubic catheter Z93.59 and Candidias is, intertriginous B37.2 [place] [address] [address] Oct, Suprapubic catheter Z93.59 [place] [address] [address] Oct, Anxiety F41.9 and Strain of right should er, subsequent encounter S46.911D [place] [address] [address] Sep, [place] [address] [address] Sep, [facility] [address] [id number] [place] [address] Sep, Via [facility] [address] [place] [id number] Sep, Suprapubic catheter Z93.59 [facility] [address] [id number] [place] [address] Sep, Anxiety F41.9 and Strain of right should er, subsequent encounter S46.911D [facility] [address] [id number] [place] [address] Aug, [facility] [address] [id number] [place] [address] Aug, [facility] [address] [id number] [place] [address] Aug, Anxiety F41.9 and Strain of right should er, subsequent encounter S46.911D Via [facility] [address] [place] [id number] Aug, Suprapubic catheter Z93.59 [facility] [address] [id number] [place] [address] Jul, Strain of right shoulder, subsequent enc ounter S46.911D and Anxiety F41.9 [facility] [address] [id number] [place] [address] Jul, Anxiety F41.9 [facility] [address] [id number] [place] [address] Jun, [facility] [address] [id number] [place] [address] Jun, [facility] [address] [id number] [place] [address] Jun, [facility] [address] [id number] [place] [address] Jun, Strain of right shoulder, subsequent enc ounter S46.911D [facility] [address] [address] Jun, Strain of right shoulder, subsequent enc ounter S46.911D [place] [address] [address] Jun, Anxiety F41.9 Via [facility] [address] [place] [id number] Jun, Neurogenic bladder N31.9 and Anxiety F41 .9 Via [facility] [address] [place] [address] May, Anxiety F41.9 [place] [address] [address] May, Dysuria R30.0 [place] [address] [id number] May, Strain of right shoulder, subsequent enc ounter S46.911D and Anxiety F41.9 [place] [address] [id number] Apr, Via [facility] [address] [place] [id number] Apr, Strain of right shoulder, subsequent enc ounter S46.911D [place] [address] [address] 14 Apr, 2019 Strain of right shoulder, subsequent enc ounter S46.911D and Anxiety F41.9 Via [facility] [address] [place] [id number] 13 Apr, 2019 Type 2 diabetes mellitus without complic ation, without long-term current use of insulin E11.9 and Neurogenic bladder N31.9 Via [facility] [address] [place] [id number] Apr, Strain of right shoulder, subsequent enc ounter S46.911D ; History of GI bleed Z87.19 ; Neurogenic bladder N31.9 and Reactive depression F32.9 [place] [address] [address] 10 Apr, 2019 Acute pain of left shoulder M25.512 [facility] [address] [address] Apr, [facility] [address] [address] Apr, Anxiety F41.9 and Other chronic pain G89 .29 Via [facility] [address] [place] [id number] March, Gastrointestinal hemorrhage associated w ith acute gastritis K29.01 [facility] [address] [address] March, Via [facility] [address] [place] [address] March, Bronchitis J40 [facility] [address] [address] March, Cough R05 [place] [address] [address] March, Other chronic pain G89.29 [facility] [address] [address] March, Anxiety F41.9 [place] [address] [address] March, [facility] [address] [address] Feb, Other chronic pain G89.29 [facility] [address] [address] Feb, Anxiety F41.9 [facility] [address] [address] Feb, Other chronic pain G89.29 Via [facility] [address] [place] [id number] Feb, Neurogenic bladder N31.9 and Suprapubic catheter Z93.59 [place] [address] [address] Jan, Anxiety F41.9 [facility] [address] [address] Dec, Anxiety F41.9 [facility] [address] [address] Dec, Other chronic pain G89.29 and Anxiety F4 1.9 [facility] [address] [address] Dec, Via [email or web address] [facility] [address] [place] [id number] Dec, Neurogenic bladder N31.9 and Suprapubic catheter Z93.59 [place] [address] [address] Nov, Other chronic pain G89.29 and Anxiety F4 1.9 [facility] [address] [address] Nov, Via [email or web address] [facility] [address] [place] [id number] Nov, Suprapubic catheter Z93.59 [facility] [address] [address] Oct, Other chronic pain G89.29 and Anxiety F4 1.9 [facility] [address] [address] Oct, [facility] [address] [address] Oct, Suprapubic catheter Z93.59 [facility] [address] [address] Oct, Via [email or web address] [facility] [address] [place] [id number] Oct, [facility] [address] [address] Oct, Anxiety F41.9 [facility] [address] [address] Oct, Anxiety F41.9 Via [email or web address] [facility] [address] [place] [id number] Oct, Other chronic pain G89.29 [facility] [address] [address] Sep, Other chronic pain G89.29 Via [facility] [facility] [address] [place] [address] Sep, Suprapubic catheter Z93.59 and Cervicalg ia M54.2 [facility] [address] [address] Sep, [facility] [address] [address] Sep, [facility] [address] [address] Sep, Via [email or web address] [facility] [address] [place] [address] Aug, Cystitis N30.90 [facility] [address] [address] Aug, [facility] [address] [address] Aug, Other chronic pain G89.29 [facility] [address] [address] Aug, Via [email or web address] [facility] [address] [place] [id number] Aug, Encounter for suprapubic catheter care Z 43.5 [facility] [address] [address] Jul, Via [email or web address] [facility] [address] [place] [address] Jul, [facility] [address] [address] Jul, Other chronic pain G89.29 [facility] [address] [address] Jul, [place] [id number] [place] [address] 10 Jul, 2018 Via [employer] [address] [place] [id number] Jun, Postmenopausal atrophic vaginitis N95.2 [place] [address] [address] 17 Jun, 2018 Other chronic pain G89.29 [place] [address] [address] Jun, Via [employer] [address] [place] [address] May, Anxiety F41.9 ; Type 2 diabetes mellitus without complication, without long-term current use of insulin E11.9 ; Hypertension I10 ; Low back pain M54.5 ; Paroxysmal atrial fibrillation I48.0 and 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 [place] [address] [address] May, Other chronic pain G89.29 [facility] [employer] [address] [place] [address] May, Low back pain M54.5 [place] [address] [address] May, [place] [address] [address] Apr, Other chronic pain G89.29 [address] [address] [address] Apr, [place] [address] [address] Apr, Via [employer] [address] [place] [address] Apr, Closed compression fracture of L3 lumbar vertebra with routine healing, subsequent encounter S32.030D [facility] [employer] [address] [place] [address] Apr, Low back pain M54.5 [facility] [employer] [address] [place] [address] Apr, Coccydynia M53.3 [facility] [id number] [place] [address] March, [facility] [id number] [place] [address] March, Other chronic pain G89.29 [facility] [id number] [place] [address] March, [facility] [id number] [place] [address] March, [facility] [address] [address] Feb, [facility] [id number] [place] [address] Feb, Other chronic pain G89.29 Via [employer] [address] [place] [address] Feb, Other chronic pain G89.29 and Anxiety F4 1.9 [facility] [id number] [place] [address] Feb, [facility] [id number] [place] [address] Jan, [facility] [id number] [place] [address] Jan, [facility] [id number] [place] [address] Jan, [facility] [id number] [place] [address] Jan, [facility] [id number] [place] [address] Dec, Via [employer] [address] [place] [address] Dec, Peripheral vascular disease I73.9 ; 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 ; Other chronic pain G89.29 ; Anxiety F41.9 ; Reactive depression F32.9 ; Insomnia G47.00 and Type 2 diabetes mellitus without complication, without long-term current use of insulin E11.9 [facility] [place] [facility] ADRIENNE [place] [id number] [place] [address] Nov, [place] [address] [id number] [facility] [place] [id number] Nov, Anxiety F41.9 [place] [address] [address] Nov, [place] [address] [id number] [place] [facility] [place] [id number] Nov, Anxiety F41.9 Via [facility] [address] [place] [address] Nov, Status post surgery Z98.890 ; Confused R 41.0 ; Anxiety F41.9 and Other chronic pain G89.29 [place] [address] [id number] [place] [address] Nov, Other chronic pain G89.29 [place] [address] [address] Oct, [place] [address] [id number] [place] [id number] Oct, Other chronic pain G89.29 [address] [address] [address] Oct, Anxiety F41.9 [place] [address] [id number] [place] [address] Sep, Other chronic pain G89.29 [place] [address] [id number] [place] [address] Sep, Via [facility] [address] [place] [address] Aug, Dysuria R30.0 and Anxiety F41.9 [place] [address] [address] Aug, [facility] [place] [address] [id number] [place] [address] Aug, Other chronic pain G89.29 [facility] [address] [address] Jul, Other chronic pain G89.29 [facility] [place] [address] [id number] [place] [address] Jun, [facility] [place] [address] [id number] [place] [id number] 15 Jun, 2017 Other chronic pain G89.29 [facility] [address] [address] Jun, [facility] [address] [address] May, Other chronic pain G89.29 [facility] [address] [address] Apr, Other chronic pain G89.29 [facility] [employer] [address] [place] [address] Apr, Reactive depression F32.9 and Pharyngeal dysphagia R13.13 [facility] [address] [address] Apr, Urinary tract infection without hematuri a, site unspecified N39.0 [facility] [address] [address] March, Other chronic pain G89.29 [facility] [address] [address] Feb, Other chronic pain G89.29 [facility] [id number] [place] [address] Feb, [facility] [place] [address] [id number] [place] [address] Feb, [facility] [employer] [address] [place] [address] Feb, Dysuria R30.0 and Ventral hernia without obstruction or gangrene K43.9 [facility] [address] [address] Jan, Other chronic pain G89.29 [facility] [place] [address] [id number] [place] [address] Dec, Other chronic pain G89.29 [facility] [address] [address] Nov, Other chronic pain G89.29 [facility] [address] [place] [id number] Nov, Lymphadenitis I88.9 [facility] [address] [address] Nov, Other chronic pain G89.29 [address] [address] [address] Nov, [facility] [place] [address] [id number] [place] [address] Nov, Other chronic pain G89.29 [facility] [address] [place] [address] Oct, Low back pain M54.5 ; Hypertension I10 a nd Type 2 diabetes mellitus without complication, without long-term current use of insulin E11.9 [facility] [address] [address] Oct, [facility] [address] [address] Oct, [facility] [address] [address] Oct, [facility] [address] [address] Oct, [facility] [address] [address] Sep, [facility] [address] [place] [address] Sep, [facility] [address] [address] Aug, Other chronic pain G89.29 [facility] [id number] [place] [address] Jul, [facility] [id number] [place] [address] Jul, [facility] [id number] [place] [address] Jul, [facility] [address] [address] Jun, [facility] [address] [address] Jun, Via [facility] [address] [place] [address] Jun, Low back pain M54.5 ; Other chronic pain G89.29 and Coronary artery disease I25.10 [facility] [id number] [place] [address] Jun, [facility] [id number] [place] [address] May, [facility] [id number] [place] [address] May, [facility] [id number] [place] [address] May, Other chronic pain G89.29 [facility] [id number] [place] [address] May, [facility] [id number] [place] [address] Apr, [facility] [id number] [place] [address] 17 Apr, 2016 Acute cystitis without hematuria N30.00 [facility] [id number] [place] [address] 16 Apr, 2016 Acute cystitis without hematuria N30.00 ; Coronary artery disease I25.10 ; Low back pain M54.5 and Other chronic pain G89.29 [facility] [id number] [place] [address] Apr, Other chronic pain G89.29 [facility] [address] [address] March, Other chronic pain G89.29 [facility] [address] [address] 18 Feb, 2016 [facility] [address] [address] Feb, Arthritis M19.90 [facility] [address] [address] Feb, [facility] [address] [address] Jan, [facility] [address] [address] Jan, [facility] [address] [address] Jan, Other chronic pain G89.29 [facility] [id number] [place] [address] Jan, Hypertension I10 ; Coronary artery disea se I25.10 and Insomnia G47.00 [facility] [id number] [place] [address] Jan, [facility] [address] [address] Dec, Right hip pain M25.551 [facility] [id number] [place] [address] Dec, [facility] [address] [address] Dec, [facility] [address] [address] Dec, [facility] [address] [address] Dec, Other chronic pain G89.29 [facility] [address] [address] Dec, [facility] [address] [address] Nov, [facility] [address] [address] Nov, Other chronic pain G89.29 [facility] [address] [address] Nov, Right hip pain M25.551 and Coronary karissa ry disease I25.10 [facility] [address] [address] Nov, Other chronic pain G89.29 [facility] [address] [address] Oct, [facility] [address] [address] Oct, [facility] [address] [address] Sep, [facility] [address] [address] Sep, [facility] [address] [address] Aug, [facility] [address] [address] Aug, Hypertension I10 ; Coronary artery disea se I25.10 and Arthritis M19.90 [facility] [address] [address] Jun, [facility] [address] [address] Jun, Essential hypertension, benign 401.1 ; O ther chronic pain 338.29 and Chronic airway obstruction, not elsewhere classified 496 [facility] [id number] [place] [address] Jun, [facility] [id number] [place] [address] Jun, [facility] [id number] [place] [address] Jun, [facility] [id number] [place] [address] May, [facility] [id number] [place] [address] May, [facility] [id number] [place] [address] Apr, [facility] [id number] [place] [address] Apr, [facility] [id number] [place] [address] Apr, [facility] [id number] [place] [address] March, [facility] [id number] [place] [address] March, [facility] [id number] [place] [address] March, [facility] [id number] [place] [address] March, [facility] [id number] [place] [address] March, Sialadenitis 527.2 [facility] [id number] [place] [address] Feb, [facility] [id number] [place] [address] Feb, [facility] [id number] [place] [address] 29 Feb, 2015 [facility] [place] [facility] [address] [facility] [id number] [facility] [place] [address] 14 Feb, 2015 [facility] [place] [facility] [address] [id number] [facility] [place] [address] 13 Feb, 2015 [facility] [place] [facility] [address] [id number] [facility] [place] [address] Jan, [facility] [place] [facility] [address] [id number] [facility] [place] [address] Jan, [facility] [place] [facility] [address] [id number] [facility] [place] [address] Jan, [facility] [place] [facility] [address] [id number] [facility] [place] [address] Jan, [facility] [place] [facility] [address] [id number] [place] [address] Jan, [facility] [place] [facility] [address] [id number] [facility] [place] [address] Jan, [facility] [place] [facility] [address] [id number] [facility] [place] [address] Dec, [facility] [place] [facility] [address] [id number] [place] [address] Dec, 2014 [facility] [place] [facility] [address] [id number] [place] [address] Dec, [facility] [place] [facility] [address] [id number] [place] [address] Dec, 2014 [facility] [place] [facility] [address] [id number] [place] [address] Dec, [facility] [place] [facility] [address] [id number] [place] [address] Dec, 2014 [facility] [place] [facility] [address] [id number] [place] [address] Nov, [facility] [place] [facility] [address] [id number] [place] [address] Nov, [facility] [place] [facility] [address] [id number] [place] [address] Nov, [facility] [place] [facility] [address] [id number] [place] [address] Nov, [facility] [place] [facility] [address] [id number] [place] [address] Nov, [facility] [place] [facility] [address] [id number] [place] [address] Nov, [facility] [place] [facility] [address] [id number] [place] [address] Nov, [facility] [place] [facility] [address] [id number] [place] [address] Nov, [facility] [place] [facility] [address] [id number] [place] [address] Nov, [facility] [place] [facility] [address] [id number] [place] [address] Nov, [facility] [place] [facility] [address] [id number] [place] [address] Nov, [facility] [place] [facility] [address] [id number] [place] [address] Nov, [facility] [place] [facility] [address] [id number] [place] [address] Nov, [facility] [place] [facility] [address] [id number] [place] [address] Nov, [facility] [place] [facility] [address] [id number] [place] [address] Oct, [facility] [place] [facility] [address] [id number] [place] [address] Oct, [facility] [place] [facility] [address] [id number] [place] [address] Oct, [facility] [place] [facility] [address] [id number] [place] [address] Oct, [facility] [place] [facility] [address] [id number] [place] [address] Oct, [facility] [place] [facility] [address] [facility] [id number] [place] [address] Oct, [facility] [place] [facility] [address] [id number] [place] [address] Oct, [facility] [place] [facility] [address] [id number] [place] [address] Oct, [facility] [place] [facility] [address] [id number] [place] [address] Oct, [facility] [place] [facility] [address] [id number] [place] [address] Sep, [facility] [place] [facility] [address] [id number] [place] [address] Sep, [facility] [place] [facility] [address] [id number] [place] [address] Sep, [facility] [place] [facility] [address] [id number] [place] [address] Sep, [facility] [place] [facility] [address] [id number] [place] [address] Sep, [facility] [place] [facility] [address] [id number] [place] [address] Sep, [facility] [place] [facility] [address] [id number] [place] [address] Sep, [facility] [place] [facility] [address] [id number] [place] [address] Sep, [facility] [place] [facility] [address] [id number] [place] [address] Sep, [facility] [place] [facility] [address] [id number] [place] [address] Sep, [facility] [place] [facility] [address] [id number] [place] [address] Sep, [facility] [place] [facility] [address] [id number] [place] [address] Sep, [facility] [place] [facility] [address] [id number] [place] [address] 30 Aug, 2013 [facility] [place] [facility] [address] [facility] [id number] [place] [address] 30 Aug, 2013 [facility] [place] [facility] [address] [id number] [place] [address] 29 Aug, 2013 [facility] [place] [facility] [address] [id number] [place] [address] 29 Aug, 2014 [facility] [place] [facility] [address] [id number] [place] [address] 28 Aug, 2014 [facility] [place] [facility] [address] [id number] [place] [address] 28 Aug, 2014 [facility] [place] [facility] [address] [id number] [place] [address] 17 Aug, 2014 [facility] [place] [facility] [address] [id number] [place] [address] 17 Aug, 2014 [facility] [place] [facility] [address] [id number] [place] [address] 30 Sep, 2013 [facility] [place] [facility] [address] [id number] [place] [address] 30 Sep, 2013 [facility] [place] [facility] [address] [id number] [place] [address] 30 Sep, 2013 [facility] [place] [facility] [address] [id number] [place] [address] 30 Sep, 2013 [facility] [place] [facility] [address] [id number] [place] [address] 25 Sep, 2013 [facility] [place] [facility] [address] [id number] [place] [address] 25 Sep, 2013 [facility] [place] [facility] [address] [id number] [place] [address] 15 Sep, 2013 [facility] [place] [facility] [address] [id number] [place] [address] 15 Sep, 2013 [facility] [place] [facility] [address] [id number] [place] [address] 11 Sep, 2013 [facility] [place] [facility] [address] [id number] [place] [address] Jul, [facility] [place] [facility] [address] [id number] [facility] [place] [address] Jun, [facility] [place] [facility] [address] [facility] [id number] [place] [address] Jun, [facility] [place] [facility] [address] [id number] [place] [address] Jun, [facility] [place] [facility] [address] [facility] [id number] [place] [address] Jun, [facility] [place] [facility] [address] [id number] [place] [address] Jun, [facility] [place] [facility] [address] [id number] [place] [address] Jun, [facility] [place] [facility] [address] [id number] [place] [address] Jun, [facility] [place] [facility] [address] [id number] [place] [address] Jun, [facility] [place] [facility] [address] [id number] [place] [address] Jun, [facility] [place] [facility] [address] [id number] [place] [address] Jun, [facility] [place] [facility] [address] [id number] [place] [address] Jun, [facility] [place] [facility] [address] [id number] [place] [address] Jun, [facility] [place] [facility] [address] [id number] [place] [address] Jun, [facility] [place] [facility] [address] [id number] [place] [address] Jun, [facility] [place] [facility] [address] [id number] [place] [address] Jun, [facility] [place] [facility] [address] [id number] [place] [address] Jun, [facility] [place] [facility] [address] [id number] [facility] [place] [address] Jun, [facility] [place] [facility] [address] [facility] [id number] [place] [address] Jun, [facility] [place] [facility] [address] [facility] [id number] [facility] [place] [address] Jun, [facility] [place] [facility] [address] [facility] [id number] [place] [address] Jun, [facility] [place] [facility] [address] [facility] [id number] [place] [address] Jun, [facility] [place] [facility] [address] [facility] [id number] [place] [address] Jun, [facility] [place] [facility] [address] [facility] [id number] [facility] [place] [address] May, [facility] [place] [facility] [address] [facility] [id number] [place] [address] May, [facility] [place] [facility] [address] [facility] [id number] [facility] [place] [address] May, [facility] [place] [facility] [address] [facility] [id number] [facility] [place] [address] May, [facility] [place] [facility] [address] [facility] [id number] [facility] [place] [address] May, [facility] [place] [facility] [address] [facility] [id number] [place] [address] May, [facility] [place] [facility] [address] [facility] [id number] [facility] [place] [address] May, 2013 [facility] [place] [facility] [address] [facility] [id number] [place] [address] May, [facility] [place] [facility] [address] [facility] [id number] [place] [address] May, [facility] [place] [facility] [address] [facility] [id number] [facility] [place] [address] May, [facility] [place] [facility] [address] [facility] [id number] [place] [address] May, [facility] [place] [facility] [address] [id number] [facility] [place] [address] May, [facility] [place] [facility] [address] [facility] [id number] [place] [address] May, [facility] [place] [facility] [address] [id number] [place] [address] Apr, [facility] [place] [facility] [address] [facility] [id number] [place] [address] Apr, [facility] [place] [facility] [address] [id number] [place] [address] Apr, [facility] [place] [facility] [address] [id number] [place] [address] Apr, [facility] [place] [facility] [address] [id number] [place] [address] Apr, [facility] [place] [facility] [address] [id number] [place] [address] Apr, [facility] [place] [facility] [address] [id number] [place] [address] Apr, [facility] [place] [facility] [address] [id number] [place] [address] Apr, [facility] [place] [facility] [address] [id number] [place] [address] Apr, [facility] [place] [facility] [address] [id number] [place] [address] March, [facility] [place] [facility] [address] [id number] [place] [address] March, [facility] [place] [facility] [address] [id number] [place] [address] March, [facility] [place] [facility] [address] [id number] [place] [address] March, [facility] [place] [facility] [address] [id number] [place] [address] March, [facility] [place] [facility] [address] [id number] [place] [address] March, [facility] [place] [facility] [address] [id number] [place] [address] March, [facility] [place] [facility] [address] [id number] [place] [address] March, [facility] [place] [facility] [address] [id number] [place] [address] March, [facility] [place] [facility] [address] [id number] [place] [address] March, [facility] [place] [facility] [address] [id number] [place] [address] March, [facility] [place] [facility] [address] [id number] [place] [address] March, [facility] [place] [facility] [address] [id number] [place] [address] March, [facility] [place] [facility] [address] [id number] [place] [address] March, [facility] [place] [facility] [address] [id number] [place] [address] March, [facility] [place] [facility] [address] [id number] [place] [address] March, [facility] [place] [facility] [address] [id number] [place] [address] March, [facility] [place] [facility] [address] [id number] [place] [address] March, [facility] [place] [facility] [address] [id number] [place] [address] March, [facility] [place] [facility] [address] [id number] [place] [address] March, [facility] [place] [facility] [address] [id number] [place] [address] Feb, [facility] [place] [facility] [address] [id number] [place] [address] Feb, [facility] [place] [facility] [address] [facility] [id number] [facility] [place] [address] Feb, [facility] [place] [facility] [address] [facility] [id number] [facility] [place] [address] Feb, [facility] [place] [facility] [address] [facility] [id number] [place] [address] Feb, [facility] [place] [facility] [address] [facility] [id number] [place] [address] Feb, [facility] [place] [facility] [address] [facility] [id number] [place] [address] Feb, [facility] [place] [facility] [address] [id number] [facility] [place] [address] Feb, [facility] [place] [facility] [address] [id number] [place] [address] Jan, [facility] [place] [facility] [address] [id number] [facility] [place] [address] Jan, [facility] [place] [facility] [address] [facility] [id number] [place] [address] Jan, [facility] [place] [facility] [address] [id number] [place] [address] 24 Jan, 2014 [facility] [place] [facility] [address] [id number] [place] [address] Jan, [facility] [place] [facility] [address] [id number] [place] [address] Jan, [facility] [place] [facility] [address] [facility] [id number] [place] [address] Jan, [facility] [place] [facility] [address] [facility] [id number] [place] [address] Jan, [facility] [place] [facility] [address] [facility] [id number] [place] [address] Jan, [facility] [place] [facility] [address] [id number] [facility] [place] [address] Jan, [facility] [place] [facility] [address] [id number] [place] [address] Dec, [facility] [place] [facility] [address] [id number] [place] [address] Dec, [facility] [place] [facility] [address] [id number] [place] [address] Dec, [facility] [place] [facility] [address] [id number] [place] [address] Dec, [facility] [place] [facility] [address] [id number] [place] [address] Dec, [facility] [place] [facility] [address] [id number] [place] [address] Dec, [facility] [place] [facility] [address] [id number] [place] [address] Dec, [facility] [place] [facility] [address] [id number] [place] [address] Dec, [facility] [place] [facility] [address] [id number] [place] [address] Nov, [facility] [place] [facility] [address] [id number] [place] [address] Nov, [facility] [place] [facility] [address] [id number] [place] [address] Nov, [facility] [place] [facility] [address] [id number] [place] [address] Nov, [facility] [place] [facility] [address] [id number] [place] [address] Nov, [facility] [place] [facility] [address] [id number] [place] [address] Nov, [facility] [place] [facility] [address] [id number] [place] [address] Nov, [facility] [place] [facility] [address] [id number] [place] [address] Nov, [facility] [place] [facility] [address] [id number] [place] [address] Nov, [facility] [address] [id number] [place] [address] Nov, [facility] [place] [facility] [address] [id number] [place] [address] Nov, [facility] [place] [facility] [address] [id number] [place] [address] Nov, [facility] [place] [facility] [address] [id number] [place] [address] Nov, [facility] [place] [facility] [address] [id number] [place] [address] Oct, [facility] [place] [facility] [address] [id number] [place] [address] Oct, [facility] [place] [facility] [address] [id number] [place] [address] Oct, [facility] [place] [facility] [address] [id number] [place] [address] Oct, [facility] [place] [facility] [address] [id number] [place] [address] Oct, [facility] [place] [facility] [address] [id number] [place] [address] Oct, [facility] [place] [facility] [address] [id number] [place] [address] Oct, [facility] [place] [facility] [address] [id number] [place] [address] Oct, [facility] [place] [facility] [address] [id number] [place] [address] Oct, [facility] [place] [facility] [address] [id number] [place] [address] Oct, [facility] [place] [facility] [address] [id number] [place] [address] Oct, [facility] [place] [facility] [address] [id number] [place] [address] Oct, [facility] [place] [facility] [address] [id number] [place] [address] Oct, [facility] [place] [facility] [address] [id number] [place] [address] Oct, [facility] [place] [facility] [address] [id number] [place] [address] Sep, [facility] [place] [facility] [address] [id number] [place] [address] Sep, [facility] [place] [facility] [address] [id number] [place] [address] Sep, [facility] [place] [facility] [address] [id number] [place] [address] Sep, [facility] [place] [facility] [address] [id number] [place] [address] Sep, [facility] [place] [facility] [address] [id number] [place] [address] Sep, [facility] [place] [facility] [address] [id number] [place] [address] Sep, [facility] [place] [facility] [address] [id number] [place] [address] Sep, [facility] [place] [facility] [address] [id number] [place] [address] Sep, [facility] [place] [facility] [address] [id number] [place] [address] Sep, [facility] [place] [facility] [address] [id number] [place] [address] Aug, [facility] [place] [facility] [address] [id number] [place] [address] Aug, [facility] [place] [facility] [address] [id number] [place] [address] Aug, [facility] [place] [facility] [address] [id number] [place] [address] Aug, [facility] [place] [facility] [address] [id number] [place] [address] Aug, [facility] [place] [facility] [address] [facility] [id number] [place] [address] 23 Aug, 2012 [facility] [place] [facility] [address] [id number] [place] [address] 23 Aug, 2012 [facility] [place] [facility] [address] [id number] [place] [address] 23 Aug, 2012 [facility] [place] [facility] [address] [id number] [place] [address] 22 Aug, 2012 [facility] [place] [facility] [address] [id number] [place] [address] 22 Aug, 2012 [facility] [place] [facility] [address] [id number] [place] [address] 18 Aug, 2012 [facility] [place] [facility] [address] [id number] [place] [address] 18 Aug, 2012 [facility] [place] [facility] [address] [id number] [place] [address] 18 Aug, 2012 [facility] [place] [facility] [address] [id number] [place] [address] 18 Aug, 2012 [facility] [place] [facility] [address] [id number] [place] [address] 17 Aug, 2012 [facility] [place] [facility] [address] [id number] [place] [address] 14 Aug, 2012 [facility] [place] [facility] [address] [id number] [place] [address] 14 Aug, 2013 [facility] [place] [facility] [address] [id number] [place] [address] Aug, 2012 [facility] [place] [facility] [address] [facility] [id number] [place] [address] 20 Jul, 2012 [facility] [place] [facility] [address] [id number] [place] [address] 19 Jul, 2012 [facility] [place] [facility] [address] [id number] [place] [address] 18 Jul, 2012 [facility] [place] [facility] [address] [id number] [place] [address] Jul, [facility] [place] [facility] [address] [id number] [facility] [place] [address] Jul, [facility] [place] [facility] [address] [id number] [place] [address] Jun, [facility] [place] [facility] [address] [facility] [id number] [facility] [place] [address] Jun, [facility] [place] [facility] [address] [id number] [place] [address] Jun, [facility] [place] [facility] [address] [id number] [place] [address] Jun, [facility] [place] [facility] [address] [id number] [facility] [place] [address] Jun, [facility] [place] [facility] [address] [facility] [id number] [place] [address] Jun, [facility] [place] [facility] [address] [id number] [place] [address] Jun, [facility] [place] [facility] [address] [facility] [id number] [facility] [place] [address] Jun, [facility] [place] [facility] [address] [id number] [place] [address] Jun, [facility] [place] [facility] [address] [id number] [place] [address] Jun, [facility] [place] [facility] [address] [id number] [place] [address] May, [facility] [place] [facility] [address] [id number] [facility] [place] [address] May, [facility] [place] [facility] [address] [id number] [place] [address] May, [facility] [place] [facility] [address] [facility] [id number] [place] [address] May, [facility] [place] [facility] [address] [id number] [place] [address] May, [facility] [place] [facility] [address] [id number] [facility] [place] [address] 16 May, 2013 [facility] [place] [facility] [address] [facility] [id number] [facility] [place] [address] May, [facility] [place] [facility] [address] [facility] [id number] [facility] [place] [address] May, [facility] [place] [facility] [address] [id number] [facility] [place] [address] May, [facility] [place] [facility] [address] [id number] [facility] [place] [address] Apr, [facility] [place] [facility] [address] [facility] [id number] [place] [address] Apr, [facility] [place] [facility] [address] [id number] [place] [address] Apr, [facility] [place] [facility] [address] [id number] [place] [address] Apr, [facility] [place] [facility] [address] [id number] [place] [address] Apr, [facility] [place] [facility] [address] [id number] [facility] [place] [address] Apr, [facility] [place] [facility] [address] [id number] [place] [address] Apr, [facility] [place] [facility] [address] [id number] [place] [address] March, [facility] [place] [facility] [address] [id number] [facility] [place] [address] Feb, [facility] [place] [facility] [address] [facility] [id number] [facility] [place] [address] Feb, [facility] [place] [facility] [address] [id number] [place] [address] Feb, [facility] [place] [facility] [address] [id number] [facility] [place] [address] Jan, [facility] [place] [facility] [address] [id number] [place] [address] Jan, [facility] [place] [facility] [address] [id number] [place] [address] 19 Jan, 2013 [facility] [place] [facility] [address] [id number] [place] [address] 14 Jan, 2013 [facility] [place] [facility] [address] [id number] [place] [address] 12 Jan, 2013 [facility] [place] [facility] [address] [id number] [place] [address] 08 Jan, 2013 [facility] [place] [facility] [address] [id number] [place] [address] 07 Jan, 2013 [facility] [place] [facility] [address] [id number] [place] [address] 04 Jan, 2013 [facility] [place] [facility] [address] [id number] [place] [address] 28 Dec, 2012 [facility] [place] [facility] [address] [id number] [place] [address] 25 Dec, 2012 [facility] [place] [facility] [address] [id number] [place] [address] 13 Dec, 2012 [facility] [place] [facility] [address] [id number] [place] [address] 11 Dec, 2012 [facility] [place] [facility] [address] [id number] [place] [address] 07 Dec, 2012 [facility] [place] [facility] [address] [id number] [place] [address] 06 Dec, 2012 [facility] [place] [facility] [address] [id number] [place] [address] 05 Dec, 2012 [facility] [place] [facility] [address] [id number] [place] [address] Nov, [facility] [place] [facility] [address] [id number] [place] [address] 24 Nov, 2012 [facility] [place] [facility] [address] [id number] [place] [address] Nov, [facility] [place] [facility] [address] [id number] [place] [id number] 15 Nov, 2012 [facility] [place] [facility] [address] [id number] [place] [address] Nov, [facility] [place] [facility] [address] [id number] [place] [address] 10 Nov, 2012 [facility] [place] [facility] [address] [id number] [place] [address] Nov, [facility] [place] [facility] [address] [id number] [place] [address] Oct, [facility] [place] [facility] [address] [id number] [place] [address] Oct, [facility] [place] [facility] [address] [id number] [place] [address] Oct, [facility] [place] [facility] [address] [id number] [place] [address] Oct, [facility] [place] [facility] [address] [id number] [place] [address] Oct, [facility] [place] [facility] [address] [id number] [place] [address] Oct, [facility] [place] [facility] [address] [id number] [place] [address] Oct, [facility] [place] [facility] [address] [id number] [place] [address] Oct, [facility] [place] [facility] [address] [id number] [place] [address] Oct, [facility] [place] [facility] [address] [id number] [place] [address] Oct, [facility] [place] [facility] [address] [id number] [place] [address] Oct, [facility] [place] [facility] [address] [id number] [place] [address] Oct, [facility] [place] [facility] [address] [id number] [place] [address] Sep, [facility] [place] [facility] [address] [id number] [place] [address] Sep, [facility] [place] [facility] [address] [id number] [place] [address] Sep, [facility] [place] [facility] [address] [id number] [place] [address] Sep, [facility] [place] [facility] [address] [id number] [place] [address] Sep, [facility] [place] [facility] [address] [id number] [place] [address] Sep, [facility] [place] [facility] [address] [id number] [place] [address] Sep, [facility] [place] [facility] [address] [id number] [place] [address] Sep, [facility] [place] [facility] [address] [id number] [place] [address] Sep, [facility] [place] [facility] [address] [id number] [place] [address] Sep, [facility] [place] [facility] [address] [id number] [place] [address] Sep, [facility] [place] [facility] [address] [id number] [place] [address] Aug, [facility] [place] [facility] [address] [id number] [place] [address] Aug, [facility] [place] [facility] [address] [id number] [place] [address] Aug, [facility] [place] [facility] [address] [id number] [place] [address] Aug, [facility] [place] [facility] [id number] [place] [address] Aug, [facility] [place] [facility] [address] [id number] [place] [address] Aug, [facility] [place] [facility] [address] [id number] [place] [address] Aug, [facility] [place] [facility] [address] [facility] [id number] [place] [address] Aug, [facility] [place] [facility] [address] [id number] [place] [address] Aug, [facility] [place] [facility] [address] [id number] [place] [address] Aug, [facility] [place] [facility] [address] [id number] [place] [address] Jul, [facility] [place] [facility] [address] [facility] [id number] [place] [address] Jul, [facility] [place] [facility] [address] [id number] [place] [address] Jul, [facility] [place] [facility] [address] [id number] [place] [address] Jul, [facility] [place] [facility] [address] [id number] [place] [address] Jun, [facility] [place] [facility] [address] [id number] [place] [address] Jun, [facility] [place] [facility] [address] [id number] [place] [address] Jun, [facility] [place] [facility] [address] [id number] [place] [address] Jun, [facility] [place] [facility] [address] [id number] [place] [address] Jun, [facility] [place] [facility] [address] [id number] [place] [address] Jun, [facility] [place] [facility] [address] [id number] [place] [address] Jun, [facility] [place] [facility] [address] [id number] [place] [address] May, [facility] [place] [facility] [address] [id number] [place] [address] May, [facility] [place] [facility] [address] [id number] [place] [address] May, [facility] [place] [facility] [address] [id number] [facility] [place] [address] May, [facility] [place] [facility] [address] [id number] [facility] [place] [address] May, [facility] [place] [facility] [address] [id number] [facility] [place] [address] Apr, [facility] [place] [facility] [address] [id number] [facility] [place] [address] Apr, [facility] [place] [facility] [address] [id number] [facility] [place] [address] Apr, [facility] [place] [facility] [address] [id number] [place] [address] Apr, [facility] [place] [facility] [address] [id number] [place] [address] Apr, [facility] [place] [facility] [address] [id number] [place] [address] March, [facility] [place] [facility] [address] [id number] [place] [address] March, [facility] [place] [facility] [address] [id number] [place] [address] March, [facility] [place] [facility] [address] [id number] [place] [address] March, [facility] [place] [facility] [address] [id number] [place] [address] March, [facility] [place] [facility] [address] [id number] [place] [address] March, [facility] [place] [facility] [address] [id number] [place] [address] March, [facility] [place] [facility] [address] [id number] [place] [address] March, [facility] [place] [facility] [address] [id number] [place] [address] March, [facility] [place] [facility] [address] [id number] [place] [address] March, [facility] [place] [facility] [address] [id number] [place] [address] 30 Feb, 2012 [facility] [place] [facility] [address] [id number] [place] [address] Feb, [facility] [place] [facility] [address] [id number] [place] [address] Feb, [facility] [place] [facility] [address] [id number] [place] [address] Feb, [facility] [place] [facility] [address] [id number] [place] [address] Feb, [facility] [place] [facility] [address] [id number] [place] [address] Feb, [facility] [place] [facility] [address] [id number] [place] [address] Feb, [facility] [place] [facility] [address] [id number] [place] [address] Feb, [facility] [place] [facility] [address] [id number] [place] [address] Feb, [facility] [place] [facility] [address] [id number] [place] [address] Jan, [facility] [place] [facility] [address] [id number] [place] [address] Jan, [facility] [place] [facility] [address] [id number] [place] [address] Jan, [facility] [place] [facility] [address] [id number] [place] [address] Jan, [facility] [place] [facility] [address] [id number] [place] [address] Dec, [facility] [place] [facility] [address] [id number] [place] [address] Dec, [facility] [place] [facility] [address] [id number] [place] [address] Nov, [facility] [id number] [place] [address] Nov, [facility] [id number] [place] [address] Nov, [facility] [id number] [place] [address] Nov, [facility] [id number] [place] [address] Nov, [facility] [id number] [place] [address] Oct, [facility] [id number] [place] [address] Oct, [facility] [id number] [place] [address] Oct, [facility] [id number] [place] [address] Oct, [facility] [id number] [place] [address] Oct, [facility] [id number] [place] [address] Oct, [facility] [id number] [place] [address] Oct, [facility] [id number] [place] [address] Oct, [facility] [id number] [place] [address] Sep, IMMUNIZATIONS No Known Immunizations SOCIAL HISTORY Never Assessed REASON FOR VISIT PLAN OF CARE VITAL SIGNS Weight 189.38 lbs 2014-03-24 Temperature 99.3 degrees Fahrenheit 2014-03-24 Heart Rate 78 bpm 2014-03-24 Respiratory Rate 28 2014-03-24 Blood pressure systolic 146 mmHg 2014-03-24 Blood pressure diastolic 82 mmHg 2014-03-24 MEDICATIONS Unknown Medications RESULTS No Results PROCEDURES Procedure Date Ordered Result Body Site LIPID PANEL March 24, 2014 VENIPUNCT, ROUTINE* March 24, 2014 INSTRUCTIONS MEDICATIONS ADMINISTERED No Known Medications [...] No Surgical history information Hospitalization History [facility]- Urosepsis, ab d pain and fever, discharged 11/27/2017 11/26/2017 Hospitalization History [facility] [place] [facility]- Went Unrepsonsive, Hit head 2017 Hospitalization History [facility]- Back Pain 05/05/ 8
--- OUTSIDE RECORDS SUMMARY | 2020-06-18 14:58 | XMS REPORT ---
Author Author Sanjuanita Abdul Doctor Organization [facility] Address Unknown Phone Unavailable Care Team Providers Care Advertising Copy Writer Name Role Phone Migration, Doctor Unavailable Unavailable PROBLEMS Type Condition ICD9-CM Code CPQ73-MH Code Onset Dates Condition S tatus SNOMED Code Problem Hypertension I10 Active 2823880 3 Problem Hyperlipidemia E78.5 Active 76443 004 Problem Coronary artery disease I25.10 Active 13511702 Problem Low back pain M54.5 Active 617391 009 Problem Other chronic pain G89.29 Active 8 7718960 Problem Ventral hernia without obstruction or gangrene K43 .9 Active 553579588 Problem Type 2 diabetes mellitus wit hout complication, without long-term current use of insulin E11.9 Active 994730118 Problem Anxiety F41.9 Active 45066310 Problem Peripheral vascular disease I73.9 Ac tive 753846639 Problem Insomnia G47.00 Active 266338224 Problem Microcytic anemia D50.9 Active 23 9923500 Problem Pharyngeal dysphagia R13.13 Active 68621732598632 Problem Other iron deficiency anemia D50.8 A ctive 08193145 Problem Reactive depression F32.9 Active 27863574 Problem Paroxysmal atrial fibrillation I48.0 Active 698596360 Problem Postmenopausal atrophic vaginitis N95.2 Active 83833371 Problem Encounter for suprapubic catheter care Z43.5 Active 546329197 Problem Neurogenic bladder N31.9 Active 3 [id number] ALLERGIES No Information ENCOUNTERS Encounter Location Date Diagnosis [facility] [id number] [place] [address] Dec, Other iron deficiency anemia D50.8 [facility] [id number] [place] [address] Dec, Via [facility] [address] [place] [id number] Dec, Encounter for suprapubic catheter care Z 43.5 and Microcytic anemia D50.9 [facility] [id number] [place] [address] Dec, [facility] [id number] [place] [address] Nov, Anxiety F41.9 and Strain of right should er, subsequent encounter S46.911D [facility] [id number] [place] [address] Nov, Hypertension I10 Via [facility] [address] [place] [id number] Nov, Pneumonia of both lungs due to infectiou s organism, unspecified part of lung J18.9 and Suprapubic catheter Z93.59 [facility] [id number] [place] [address] Nov, Hypertension I10 and Reactive depression F32.9 [facility] [id number] [place] [address] Oct, Strain of right shoulder, subsequent enc ounter S46.911D and Anxiety F41.9 [facility] [id number] [place] [address] Oct, Via [facility] [address] [place] [address] Oct, Suprapubic catheter Z93.59 and Candidias is, intertriginous B37.2 [facility] [id number] [place] [address] Oct, Suprapubic catheter Z93.59 [facility] [id number] [place] [address] Oct, Anxiety F41.9 and Strain of right should er, subsequent encounter S46.911D [facility] [id number] [place] [address] Sep, [facility] [id number] [place] [address] Sep, [facility] [id number] [place] [address] Sep, Via [facility] [address] [place] [address] Sep, Suprapubic catheter Z93.59 [facility] [address] [id number] [place] [address] Sep, Anxiety F41.9 and Strain of right should er, subsequent encounter S46.911D [facility] [address] [id number] [place] [address] Aug, [facility] [address] [id number] [place] [address] Aug, [facility] [id number] [place] [address] Aug, Anxiety F41.9 and Strain of right should er, subsequent encounter S46.911D [facility] [address] [place] [id number] Aug, Suprapubic catheter Z93.59 [facility] [address] [id number] [place] [address] Jul, Strain of right shoulder, subsequent enc ounter S46.911D and Anxiety F41.9 [facility] [id number] [place] [address] Jul, Anxiety F41.9 [facility] [address] [id number] [place] [address] Jun, [facility] [address] [id number] [place] [address] Jun, [facility] [address] [id number] [place] [address] Jun, [facility] [address] [id number] [place] [address] Jun, Strain of right shoulder, subsequent enc ounter S46.911D [facility] [address] [id number] [place] [address] Jun, Strain of right shoulder, subsequent enc ounter S46.911D [facility] [address] [address] Jun, Anxiety F41.[address] [facility] [address] [place] [id number] Jun, Neurogenic bladder N31.9 and Anxiety F41 [address] [facility] [address] [place] [id number] May, Anxiety F41.9 [facility] [address] [address] May, Dysuria R30.0 [facility] [address] [address] May, Strain of right shoulder, subsequent enc ounter S46.911D and Anxiety F41.9 [facility] [address] [address] Apr, Via [facility] [address] [place] [address] Apr, Strain of right shoulder, subsequent enc ounter S46.911D [facility] [address] [address] 14 Apr, 2019 Strain of right shoulder, subsequent enc ounter S46.911D and Anxiety F41.[address] [facility] [address] [place] [id number] 13 Apr, 2019 Type 2 diabetes mellitus without complic ation, without long-term current use of insulin E11.9 and Neurogenic bladder N31.[address] [facility] [address] [place] [address] Apr, Strain of right shoulder, subsequent enc ounter S46.911D ; History of GI bleed Z87.19 ; Neurogenic bladder N31.9 and Reactive depression F32.9 [facility] [address] [address] 10 Apr, 2019 Acute pain of left shoulder M25.512 [facility] [address] [id number] Apr, [facility] [address] [address] Apr, Anxiety F41.9 and Other chronic pain G89 .29 Via [facility] [address] [place] [id number] March, Gastrointestinal hemorrhage associated w ith acute gastritis K29.01 [facility] [address] [address] March, [facility] [address] [place] [address] March, Bronchitis J40 [facility] [address] [address] March, Cough R05 [facility] [address] [address] March, Other chronic pain G89.29 [facility] [address] [address] March, Anxiety F41.9 [facility] [address] [address] March, [facility] [address] [address] Feb, Other chronic pain G89.29 [facility] [address] [address] Feb, Anxiety F41.9 [facility] [address] [address] Feb, Other chronic pain G89.29 [facility] [employer] [facility] [address] [place] [address] Feb, Neurogenic bladder N31.9 and Suprapubic catheter Z93.59 [facility] [address] [address] Jan, Anxiety F41.9 [facility] [address] [address] Dec, Anxiety F41.9 [facility] [address] [address] Dec, Other chronic pain G89.29 and Anxiety F4 1.9 [facility] [address] [address] 15 Dec, 2018 Via [facility] [address] [place] [address] Dec, Neurogenic bladder N31.9 and Suprapubic catheter Z93.59 [facility] [address] [address] Nov, Other chronic pain G89.29 and Anxiety F4 1.9 [facility] [address] [address] Nov, Via [facility] [address] [place] [address] Nov, Suprapubic catheter Z93.59 [facility] [address] [address] Oct, Other chronic pain G89.29 and Anxiety F4 1.9 [facility] [address] [address] Oct, [facility] [address] [address] Oct, Suprapubic catheter Z93.59 [facility] [address] [address] Oct, Via [facility] [address] [place] [address] Oct, [facility] [address] [address] Oct, Anxiety F41.9 [facility] [address] [address] Oct, Anxiety F41.9 [facility] [address] [place] [address] Oct, Other chronic pain G89.29 [facility] [address] [address] 14 Sep, 2018 Other chronic pain G89.29 Via [facility] [address] [place] [address] Sep, Suprapubic catheter Z93.59 and Cervicalg ia M54.2 [facility] [address] [address] Sep, [facility] [address] [address] Sep, [facility] [address] [address] Sep, Via [facility] [address] [place] [address] Aug, Cystitis N30.90 [facility] [address] [address] Aug, [facility] [address] [address] Aug, Other chronic pain G89.29 [facility] [address] [address] Aug, Via [facility] [address] [place] [address] Aug, Encounter for suprapubic catheter care Z 43.5 [facility] [address] [address] Jul, Via [facility] [address] [place] [address] Jul, [facility] [address] [address] Jul, Other chronic pain G89.29 [facility] [address] [address] Jul, [facility] [address] [address] Jul, Via [facility] [address] [place] [address] Jun, Postmenopausal atrophic vaginitis N95.2 [address] [address] [address] Jun, Other chronic pain G89.29 [facility] [address] [address] Jun, Via [facility] [address] [place] [address] May, Anxiety F41.9 ; Type 2 diabetes mellitus without complication, without long-term current use of insulin E11.9 ; Hypertension I10 ; Low back pain M54.5 ; Paroxysmal atrial fibrillation I48.0 and 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 [facility] [address] [address] May, Other chronic pain G89.29 [facility] [address] [place] [address] May, Low back pain M54.5 [facility] [address] [address] May, [facility] [address] [address] Apr, Other chronic pain G89.29 [facility] [address] [address] Apr, [facility] [address] [address] Apr, Via [facility] [address] [place] [id number] Apr, Closed compression fracture of L3 lumbar vertebra with routine healing, subsequent encounter S32.030D [facility] [address] [place] [address] Apr, Low back pain M54.5 [facility] [address] [place] [address] Apr, Coccydynia M53.3 [facility] [id number] [place] [address] March, [facility] [address] [address] March, Other chronic pain G89.29 [facility] [address] [address] March, [facility] [address] [address] March, [facility] [address] [address] Feb, [facility] [address] [address] Feb, Other chronic pain G89.29 [facility] [employer] [facility] [address] [place] [address] Feb, Other chronic pain G89.29 and Anxiety F4 1.9 [facility] [address] [address] Feb, [facility] [address] [address] Jan, [facility] [address] [address] Jan, [facility] [address] [address] Jan, [facility] [address] [address] Jan, [facility] [address] [address] Dec, Via [facility] [address] [place] [address] Dec, Peripheral vascular disease I73.9 ; 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 ; Other chronic pain G89.29 ; Anxiety F41.9 ; Reactive depression F32.9 ; Insomnia G47.00 and Type 2 diabetes mellitus without complication, without long-term current use of insulin E11.9 [facility] ADRIENNE SANCHEZ [id number] [place] [address] Nov, [facility] [address] [id number] [place] [id number] Nov, Anxiety F41.9 [facility] [address] [address] Nov, [facility] [address] [id number] [place] [id number] Nov, Anxiety F41.9 [facility] [address] [place] [id number] Nov, Status post surgery Z98.890 ; Confused R 41.0 ; Anxiety F41.9 and Other chronic pain G89.29 [address] [id number] [place] [id number] Nov, Other chronic pain G89.29 [facility] [address] [address] Oct, [place] [address] [id number] [place] [address] Oct, Other chronic pain G89.29 [facility] [address] [address] Oct, Anxiety F41.9 [place] [id number] [place] [id number] Sep, Other chronic pain G89.29 [place] [address] [id number] [place] [id number] Sep, [facility] [address] [place] [address] Aug, Dysuria R30.0 and Anxiety F41.9 [address] [address] Aug, [place] [address] [id number] [place] [id number] Aug, Other chronic pain G89.29 [facility] [address] [address] Jul, Other chronic pain G89.29 [facility] [address] [id number] [place] [facility] [place] [place] [id number] Jun, [facility] [address] [id number] [place] [facility] [place] [place] [id number] Jun, Other chronic pain G89.29 [facility] [address] [address] Jun, [facility] [address] [address] May, Other chronic pain G89.29 [facility] [address] [address] Apr, Other chronic pain G89.29 [facility] [address] [place] [address] Apr, Reactive depression F32.9 and Pharyngeal dysphagia R13.13 [facility] [address] [address] Apr, Urinary tract infection without hematuri a, site unspecified N39.0 [facility] [address] [address] March, Other chronic pain G89.29 [facility] [address] [address] Feb, Other chronic pain G89.29 [facility] [address] [address] Feb, [facility] [address] [id number] [place] [address] Feb, [facility] [address] [place] [address] Feb, Dysuria R30.0 and Ventral hernia without obstruction or gangrene K43.9 [facility] [address] [facility] [place] [address] Jan, Other chronic pain G89.29 [facility] [address] [id number] [place] [facility] [place] [id number] Dec, Other chronic pain G89.29 [facility] [address] [facility] [place] [address] Nov, Other chronic pain G89.29 [facility] [address] [place] [address] Nov, Lymphadenitis I88.9 [facility] [id number] [place] [address] Nov, Other chronic pain G89.29 [facility] [id number] [place] [address] Nov, [facility] [address] [id number] [facility] [place] [address] Nov, Other chronic pain G89.29 [facility] [address] [place] [address] Oct, Low back pain M54.5 ; Hypertension I10 a nd Type 2 diabetes mellitus without complication, without long-term current use of insulin E11.9 [facility] [id number] [place] [address] Oct, [facility] [id number] [place] [address] Oct, [facility] [id number] [place] [address] Oct, [facility] [id number] [place] [address] Oct, [facility] [id number] [place] [address] Sep, [facility] [address] [facility] [place] [address] Sep, [facility] [id number] [place] [address] Aug, Other chronic pain G89.29 [facility] [id number] [place] [address] Jul, [facility] [id number] [place] [address] Jul, [facility] [id number] [place] [address] Jul, [facility] [id number] [place] [address] Jun, [facility] [address] [address] Jun, Via [facility] [address] [place] [id number] Jun, Low back pain M54.5 ; Other chronic pain G89.29 and Coronary artery disease I25.10 [facility] [id number] [place] [address] Jun, [facility] [id number] [place] [address] May, [facility] [address] [address] May, [facility] [id number] [place] [address] May, Other chronic pain G89.29 [facility] [id number] [place] [address] May, [facility] [id number] [place] [address] Apr, [facility] [address] [address] Apr, Acute cystitis without hematuria N30.00 [facility] [id number] [place] [address] Apr, Acute cystitis without hematuria N30.00 ; Coronary artery disease I25.10 ; Low back pain M54.5 and Other chronic pain G89.29 [facility] [address] [address] Apr, Other chronic pain G89.29 [facility] [address] [address] March, Other chronic pain G89.29 [facility] [address] [address] Feb, [facility] [address] [address] 15 Feb, 2016 Arthritis M19.90 [facility] [address] [address] Feb, [facility] [address] [address] Jan, [facility] [address] [address] Jan, [facility] [address] [address] Jan, Other chronic pain G89.29 [facility] [address] [address] Jan, Hypertension I10 ; Coronary artery disea se I25.10 and Insomnia G47.00 [facility] [address] [address] Jan, [facility] [address] [address] Dec, Right hip pain M25.551 [facility] [address] [address] Dec, [facility] [address] [address] Dec, [facility] [address] [address] Dec, [facility] [address] [address] 05 Dec, 2015 Other chronic pain G89.29 [facility] [address] [address] Dec, [facility] [address] [address] Nov, [facility] [address] [address] Nov, Other chronic pain G89.29 [facility] [address] [address] Nov, Right hip pain M25.551 and Coronary karissa ry disease I25.10 [facility] [address] [address] Nov, Other chronic pain G89.29 [place] [address] [address] Oct, [facility] [address] [address] Oct, [facility] [address] [address] Sep, [facility] [address] [address] Sep, [place] [address] [address] Aug, [facility] [address] [address] Aug, Hypertension I10 ; Coronary artery disea se I25.10 and Arthritis M19.90 [facility] [address] [address] Jun, [facility] [address] [address] Jun, Essential hypertension, benign 401.1 ; O ther chronic pain 338.29 and Chronic airway obstruction, not elsewhere classified [address] [facility] [place] [address] Jun, [facility] [address] [id number] [place] [address] Jun, [facility] [address] [id number] [place] [address] Jun, [facility] [address] [id number] [place] [address] May, [facility] [address] [id number] [place] [address] May, [facility] [address] [id number] [place] [address] Apr, [facility] [address] [id number] [place] [address] Apr, [facility] [address] [id number] [place] [address] Apr, [facility] [address] [id number] [place] [address] March, [facility] [address] [id number] [place] [address] March, [facility] [address] [id number] [place] [address] March, [facility] [address] [id number] [place] [address] March, [facility] [address] [id number] [place] [address] March, Sialadenitis 527.2 [facility] [address] [id number] [place] [address] Feb, [facility] [address] [id number] [place] [address] Feb, [facility] [address] [id number] [place] [address] Feb, [facility] [address] [id number] [place] [address] 14 Feb, 2014 [facility] [address] [facility] [id number] [place] [address] 13 Feb, 2015 [facility] [address] [facility] [id number] [place] [address] Jan, [facility] [address] [id number] [place] [address] Jan, [facility] [address] [id number] [place] [address] Jan, [facility] [address] [facility] [id number] [facility] [address] Jan, [facility] [place] [facility] [id number] [place] [address] Jan, [facility] [place] [facility] [id number] [place] [address] Jan, [facility] [place] [facility] [id number] [place] [address] Dec, 2014 [facility] [place] [facility] [address] [facility] [id number] [place] [address] Dec, [facility] [place] [facility] [id number] [place] [address] Dec, [facility] [place] [facility] [id number] [place] [address] Dec, [facility] [place] [facility] [id number] [place] [address] Dec, [facility] [place] [facility] [address] [facility] [id number] [place] [address] Dec, [facility] [place] [facility] [id number] [place] [address] Nov, [facility] [place] [facility] [id number] [place] [address] Nov, [facility] [place] [facility] [id number] [place] [address] Nov, [facility] [place] [facility] [id number] [place] [address] Nov, [facility] [place] [facility] [id number] [place] [address] Nov, [facility] [place] [facility] [id number] [place] [address] Nov, [facility] [place] [facility] [id number] [place] [address] Nov, [facility] [place] [facility] [id number] [place] [address] Nov, [facility] [place] [facility] [id number] [place] [address] Nov, [facility] [place] [facility] [id number] [place] [address] Nov, [facility] [place] [facility] [id number] [place] [address] Nov, [facility] [place] [facility] [id number] [place] [address] Nov, [facility] [place] [facility] [id number] [place] [address] Nov, [facility] [place] [facility] [id number] [place] [address] Nov, [facility] [place] [facility] [id number] [place] [address] Oct, [facility] [place] [facility] [id number] [place] [address] Oct, [facility] [place] [facility] [id number] [place] [address] Oct, [facility] [place] [facility] [id number] [place] [address] Oct, [facility] [place] [facility] [id number] [place] [address] Oct, [facility] [place] [facility] [id number] [place] [address] Oct, [facility] [place] [facility] [id number] [place] [address] Oct, [facility] [place] [facility] [id number] [place] [address] Oct, [facility] [place] [facility] [id number] [place] [address] Oct, [facility] [place] [facility] [id number] [place] [address] Sep, [facility] [place] [facility] [address] [facility] [id number] [place] [address] Sep, [facility] [place] [facility] [id number] [place] [address] Sep, [facility] [place] [facility] [id number] [place] [address] Sep, [facility] [place] [facility] [id number] [place] [address] Sep, [facility] [place] [facility] [id number] [place] [address] Sep, [facility] [place] [facility] [id number] [place] [address] Sep, [facility] [place] [facility] [id number] [place] [address] Sep, [facility] [place] [facility] [id number] [place] [address] Sep, [facility] [place] [facility] [id number] [place] [address] Sep, [facility] [place] [facility] [id number] [place] [address] Sep, [facility] [place] [facility] [id number] [place] [address] Sep, [facility] [place] [facility] [id number] [place] [address] Aug, [facility] [place] [facility] [id number] [place] [address] 30 Aug, 2013 [facility] [place] [facility] [address] [facility] [id number] [place] [address] 29 Aug, 2014 [facility] [place] [facility] [id number] [place] [address] 29 Aug, 2014 [facility] [place] [facility] [id number] [place] [address] 28 Aug, 2014 [facility] [place] [facility] [id number] [place] [address] 28 Aug, 2013 [facility] [place] [facility] [id number] [place] [address] 17 Aug, 2014 [facility] [place] [facility] [id number] [place] [address] 17 Aug, 2013 [facility] [place] [facility] [id number] [place] [address] 30 Jul, 2013 [facility] [place] [facility] [id number] [place] [address] 30 Sep, 2013 [facility] [place] [facility] [id number] [place] [address] 30 Sep, 2013 [facility] [place] [facility] [id number] [place] [address] 30 Sep, 2013 [facility] [place] [facility] [id number] [place] [address] 25 Sep, 2013 [facility] [place] [facility] [id number] [place] [address] 25 Sep, 2013 [facility] [place] [facility] [id number] [place] [address] 15 Sep, 2013 [facility] [place] [facility] [id number] [place] [address] 15 Sep, 2013 [facility] [place] [facility] [id number] [place] [address] 11 Sep, 2013 [facility] [place] [facility] [id number] [place] [address] Jul, [facility] [place] [facility] [address] [id number] [place] [address] Jun, [facility] [place] [facility] [address] [facility] [id number] [place] [address] Jun, [facility] [place] [facility] [id number] [place] [address] Jun, [facility] [place] [facility] [id number] [place] [address] Jun, [facility] [place] [facility] [address] [facility] [id number] [place] [address] Jun, [facility] [place] [facility] [address] [id number] [place] [address] Jun, [facility] [place] [facility] [id number] [place] [address] Jun, [facility] [place] [facility] [id number] [place] [address] Jun, [facility] [place] [facility] [id number] [place] [address] Jun, [facility] [place] [facility] [id number] [place] [address] Jun, [facility] [place] [facility] [id number] [place] [address] Jun, [facility] [place] [facility] [id number] [place] [address] Jun, [facility] [place] [facility] [address] [id number] [place] [address] Jun, [facility] [place] [facility] [address] [facility] [id number] [place] [address] Jun, [facility] [place] [facility] [id number] [place] [address] Jun, [facility] [place] [facility] [id number] [place] [address] Jun, [facility] [place] [facility] [id number] [place] [address] Jun, [facility] [place] [facility] [address] [id number] [place] [address] Jun, [facility] [place] [facility] [address] [facility] [id number] [place] [address] Jun, [facility] [place] [facility] [address] [facility] [id number] [place] [address] Jun, [facility] [place] [facility] [address] [id number] [place] [address] Jun, [facility] [place] [facility] [address] [id number] [place] [address] Jun, [facility] [place] [facility] [address] [id number] [place] [address] May, [facility] [place] [facility] [address] [facility] [id number] [place] [address] May, [facility] [place] [facility] [address] [facility] [id number] [place] [address] May, [facility] [place] [facility] [address] [facility] [id number] [place] [address] May, [facility] [place] [facility] [address] [facility] [id number] [place] [address] May, [facility] [place] [facility] [address] [facility] [id number] [place] [address] May, 2013 [facility] [place] [facility] [id number] [place] [address] May, [facility] [place] [facility] [address] [facility] [id number] [place] [address] May, 2013 [facility] [place] [facility] [address] [id number] [place] [address] May, [facility] [place] [facility] [address] [facility] [id number] [place] [address] May, [facility] [place] [facility] [address] [facility] [id number] [place] [address] May, [facility] [place] [facility] [address] [facility] [id number] [place] [address] May, [facility] [place] [facility] [address] [id number] [place] [address] May, [facility] [place] [facility] [id number] [place] [address] Apr, [facility] [place] [facility] [id number] [place] [address] Apr, [facility] [place] [facility] [id number] [place] [address] Apr, [facility] [place] [facility] [address] [facility] [id number] [place] [address] Apr, [facility] [place] [facility] [id number] [place] [address] Apr, [facility] [place] [facility] [id number] [place] [address] Apr, [facility] [place] [facility] [id number] [place] [address] Apr, [facility] [place] [facility] [id number] [place] [address] Apr, [facility] [place] [facility] [id number] [place] [address] Apr, [facility] [place] [facility] [id number] [place] [address] March, [facility] [place] [facility] [id number] [place] [address] March, [facility] [place] [facility] [id number] [place] [address] March, [facility] [place] [facility] [address] [id number] [place] [address] March, [facility] [place] [facility] [id number] [place] [address] March, [facility] [place] [facility] [id number] [place] [address] March, [facility] [place] [facility] [id number] [place] [address] March, [facility] [place] [facility] [id number] [place] [address] March, [facility] [place] [facility] [id number] [place] [address] March, [facility] [place] [facility] [id number] [place] [address] March, [facility] [place] [facility] [id number] [place] [address] March, [facility] [place] [facility] [id number] [place] [address] March, [facility] [place] [facility] [id number] [place] [address] March, [facility] [place] [facility] [id number] [place] [address] March, [facility] [place] [facility] [id number] [place] [address] March, [facility] [place] [facility] [id number] [place] [address] March, [facility] [place] [facility] [id number] [place] [address] March, [facility] [place] [facility] [id number] [place] [address] March, [facility] [place] [facility] [id number] [place] [address] March, [facility] [place] [facility] [id number] [place] [address] March, [facility] [place] [facility] [address] [facility] [id number] [place] [address] Feb, [facility] [place] [facility] [id number] [place] [address] Feb, [facility] [place] [facility] [id number] [place] [address] Feb, [facility] [place] [facility] [address] [facility] [id number] [place] [address] Feb, [facility] [place] [facility] [address] [facility] [id number] [place] [address] Feb, [facility] [place] [facility] [address] [facility] [id number] [place] [address] Feb, [facility] [place] [facility] [address] [facility] [id number] [place] [address] Feb, [facility] [place] [facility] [address] [facility] [id number] [place] [address] Feb, [facility] [place] [facility] [address] [facility] [id number] [place] [address] Jan, [facility] [place] [facility] [id number] [place] [address] Jan, [facility] [place] [facility] [address] [id number] [place] [address] Jan, [facility] [place] [facility] [address] [facility] [id number] [place] [address] Jan, [facility] [place] [facility] [address] [facility] [address] [id number] [place] [address] Jan, [facility] [place] [facility] [address] [facility] [id number] [place] [address] Jan, [facility] [place] [facility] [address] [facility] [address] [id number] [place] [address] Jan, [facility] [place] [facility] [address] [facility] [id number] [place] [address] Jan, [facility] [place] [facility] [address] [id number] [place] [address] Jan, [facility] [place] [facility] [address] [facility] [id number] [place] [address] Jan, [facility] [place] [facility] [address] [facility] [address] [id number] [place] [address] Dec, [facility] [place] [facility] [address] [id number] [place] [address] Dec, [facility] [place] [facility] [address] [facility] [id number] [place] [address] Dec, [facility] [place] [facility] [address] [id number] [place] [address] Dec, [facility] [place] [facility] [address] [id number] [place] [address] Dec, [facility] [place] [facility] [address] [id number] [place] [address] Dec, [facility] [place] [facility] [address] [id number] [place] [address] Dec, [facility] [place] [facility] [address] [id number] [place] [address] Dec, [facility] [place] [facility] [address] [id number] [place] [address] Nov, [facility] [place] [facility] [address] [id number] [place] [address] Nov, [facility] [place] [facility] [address] [id number] [place] [address] Nov, [facility] [place] [facility] [address] [id number] [place] [address] Nov, [facility] [place] [facility] [address] [id number] [place] [address] Nov, [facility] [place] [facility] [address] [id number] [place] [address] Nov, [facility] [place] [facility] [address] [id number] [place] [address] Nov, [facility] [place] [facility] [address] [id number] [place] [address] Nov, [facility] [place] [facility] [address] [id number] [place] [address] Nov, [facility] [place] [facility] [address] [id number] [place] [address] Nov, [facility] [address] [id number] [place] [address] Nov, [facility] [place] [facility] [address] [id number] [place] [address] Nov, [facility] [place] [facility] [address] [id number] [place] [address] Nov, [facility] [place] [facility] [address] [id number] [place] [address] Oct, [facility] [place] [facility] [address] [id number] [place] [address] Oct, [facility] [place] [facility] [address] [id number] [place] [address] Oct, [facility] [place] [facility] [address] [id number] [place] [address] Oct, [facility] [place] [facility] [address] [id number] [place] [address] Oct, [facility] [place] [facility] [address] [id number] [place] [address] Oct, [facility] [place] [facility] [address] [id number] [place] [address] Oct, [facility] [place] [facility] [address] [id number] [place] [address] Oct, [facility] [place] [facility] [address] [id number] [place] [address] Oct, [facility] [place] [facility] [address] [id number] [place] [address] Oct, [facility] [place] [facility] [address] [id number] [place] [address] Oct, [facility] [place] [facility] [address] [id number] [place] [address] Oct, [facility] [place] [facility] [address] [id number] [place] [address] Oct, [facility] [place] [facility] [address] [id number] [place] [address] Oct, [facility] [place] [facility] [address] [id number] [place] [address] Sep, [facility] [place] [facility] [address] [id number] [place] [address] Sep, [facility] [place] [facility] [address] [id number] [place] [address] Sep, [facility] [place] [facility] [address] [id number] [place] [address] Sep, [facility] [place] [facility] [id number] [place] [address] Sep, [facility] [place] [facility] [id number] [place] [address] Sep, [facility] [place] [facility] [id number] [place] [address] Sep, [facility] [place] [facility] [id number] [place] [address] Sep, [facility] [place] [facility] [id number] [place] [address] Sep, [facility] [place] [facility] [id number] [place] [address] Sep, [facility] [place] [facility] [id number] [place] [address] Aug, [facility] [place] [facility] [id number] [place] [address] Aug, [facility] [place] [facility] [id number] [place] [address] Aug, [facility] [place] [facility] [id number] [place] [address] Aug, [facility] [place] [facility] [id number] [place] [address] Aug, [facility] [place] [facility] [id number] [place] [address] Aug, [facility] [place] [facility] [address] [facility] [id number] [place] [address] 23 Aug, 2012 [facility] [place] [facility] [id number] [place] [address] 23 Aug, 2012 [facility] [place] [facility] [id number] [place] [address] 22 Aug, 2012 [facility] [place] [facility] [id number] [place] [address] 22 Aug, 2012 [facility] [place] [facility] [id number] [place] [address] 18 Aug, 2012 [facility] [place] [facility] [id number] [place] [address] 18 Aug, 2012 [facility] [place] [facility] [id number] [place] [address] 18 Aug, 2012 [facility] [place] [facility] [id number] [place] [address] 18 Aug, 2012 [facility] [place] [facility] [id number] [place] [address] 17 Aug, 2012 [facility] [place] [facility] [id number] [place] [address] 14 Aug, 2012 [facility] [place] [facility] [id number] [place] [address] 14 Aug, 2012 [facility] [place] [facility] [id number] [place] [address] 01 Aug, 2012 [facility] [place] [facility] [id number] [place] [address] 20 Jul, 2012 [facility] [place] [facility] [address] [facility] [id number] [place] [address] 19 Sep, 2012 [facility] [place] [facility] [id number] [place] [address] 18 Sep, 2012 [facility] [place] [facility] [id number] [place] [address] 11 Sep, 2012 [facility] [place] [facility] [id number] [place] [address] Jul, [facility] [place] [facility] [address] [id number] [place] [address] Jun, [facility] [place] [facility] [address] [facility] [id number] [place] [address] Jun, [facility] [place] [facility] [address] [facility] [id number] [place] [address] Jun, [facility] [place] [facility] [address] [id number] [place] [address] Jun, [facility] [place] [facility] [address] [facility] [id number] [place] [address] Jun, [facility] [place] [facility] [address] [id number] [place] [address] Jun, [facility] [place] [facility] [address] [facility] [id number] [place] [address] Jun, [facility] [place] [facility] [id number] [place] [address] Jun, [facility] [place] [facility] [address] [facility] [id number] [place] [address] Jun, [facility] [place] [facility] [address] [facility] [id number] [place] [address] Jun, [facility] [place] [facility] [address] [facility] [id number] [place] [address] May, [facility] [place] [facility] [id number] [place] [address] May, [facility] [place] [facility] [address] [facility] [id number] [place] [address] May, [facility] [place] [facility] [address] [id number] [place] [address] May, [facility] [place] [facility] [address] [facility] [id number] [place] [address] May, [facility] [place] [facility] [address] [facility] [id number] [place] [address] May, [facility] [place] [facility] [address] [id number] [place] [address] May, [facility] [place] [facility] [address] [id number] [place] [address] May, [facility] [place] [facility] [id number] [place] [address] May, [facility] [place] [facility] [id number] [place] [address] Apr, [facility] [place] [facility] [id number] [place] [address] Apr, [facility] [place] [facility] [id number] [place] [address] Apr, [facility] [place] [facility] [address] [id number] [place] [address] Apr, [facility] [address] [id number] [place] [address] Apr, [facility] [address] [id number] [place] [address] Apr, [facility] [address] [id number] [place] [address] Apr, [facility] [address] [id number] [place] [address] March, [facility] [address] [id number] [place] [address] Feb, [facility] [address] [id number] [place] [address] Feb, [facility] [address] [id number] [place] [address] Feb, [facility] [address] [id number] [place] [address] Jan, [facility] [address] [id number] [place] [address] Jan, [facility] [address] [id number] [place] [address] Jan, [facility] [address] [facility] [id number] [place] [address] 14 Jan, 2013 [facility] [address] [id number] [place] [address] 12 Jan, 2013 [facility] [address] [id number] [place] [address] 08 Jan, 2013 [facility] [address] [id number] [place] [address] 07 Jan, 2013 [facility] [address] [id number] [place] [address] 04 Jan, 2013 [facility] [address] [id number] [place] [address] 28 Dec, 2012 [facility] [address] [id number] [place] [address] 25 Dec, 2012 [facility] [address] [id number] [place] [address] Dec, [facility] [address] [id number] [place] [address] Dec, [facility] [address] [id number] [place] [address] 07 Dec, 2012 [facility] [address] [id number] [place] [address] 06 Dec, 2012 [facility] [address] [id number] [place] [address] 05 Dec, 2012 [facility] [address] [id number] [place] [address] Nov, [facility] [address] [id number] [place] [address] 24 Nov, 2012 [facility] [address] [id number] [place] [address] 18 Nov, 2012 [facility] [address] [id number] [place] [address] 15 Nov, 2012 [facility] [address] [id number] [place] [address] Nov, [facility] [address] [id number] [place] [address] Nov, [facility] [address] [id number] [place] [address] Nov, [facility] [address] [id number] [place] [address] Oct, [facility] [address] [id number] [place] [address] Oct, [facility] [address] [id number] [place] [address] Oct, [facility] [address] [id number] [place] [address] Oct, [facility] [address] [id number] [place] [address] Oct, [facility] [address] [id number] [place] [address] Oct, [facility] [address] [id number] [place] [address] Oct, [facility] [address] [id number] [place] [address] Oct, [facility] [address] [id number] [place] [address] Oct, [facility] [address] [id number] [place] [address] Oct, [facility] [address] [id number] [place] [address] Oct, [facility] [address] [id number] [place] [address] Oct, [facility] [address] [id number] [place] [address] Sep, [facility] [address] [id number] [place] [address] Sep, [facility] [address] [id number] [place] [address] Sep, [facility] [address] [id number] [place] [address] Sep, [facility] [address] [id number] [place] [address] Sep, [facility] [address] [id number] [place] [address] Sep, [facility] [address] [id number] [place] [address] Sep, [facility] [address] [id number] [place] [address] Sep, [facility] [address] [id number] [place] [address] Sep, [facility] [address] [id number] [place] [address] Sep, [facility] [address] [id number] [place] [address] Sep, [facility] [address] [id number] [place] [address] Aug, [facility] [address] [id number] [place] [address] Aug, [facility] [address] [id number] [place] [address] Aug, [facility] [address] [id number] [place] [address] Aug, [facility] [address] [id number] [place] [address] Aug, [facility] [id number] [place] [address] Aug, [facility] [address] [id number] [place] [address] Aug, [facility] [address] [id number] [place] [address] Aug, [facility] [address] [facility] [id number] [place] [address] Aug, [facility] [address] [id number] [place] [address] Aug, [facility] [address] [id number] [place] [address] Jul, [facility] [address] [id number] [place] [address] Jul, [facility] [address] [facility] [id number] [place] [address] Jul, [facility] [address] [id number] [place] [address] Jul, [facility] [address] [id number] [place] [address] Jun, [facility] [address] [id number] [place] [address] Jun, [facility] [address] [id number] [place] [address] Jun, [facility] [address] [id number] [place] [address] Jun, [facility] [address] [id number] [place] [address] Jun, [facility] [address] [id number] [place] [address] Jun, [facility] [address] [id number] [place] [address] Jun, [facility] [address] [id number] [place] [address] May, [facility] [address] [id number] [place] [address] May, [facility] [address] [id number] [place] [address] May, [facility] [address] [id number] [place] [address] May, [facility] [address] [id number] [place] [address] May, [facility] [address] [id number] [place] [address] Apr, [facility] [address] [id number] [place] [address] Apr, [facility] [address] [id number] [place] [address] Apr, [facility] [address] [facility] [id number] [place] [address] Apr, [facility] [address] [id number] [place] [address] Apr, [facility] [address] [id number] [place] [address] March, [facility] [address] [id number] [place] [address] March, [facility] [address] [id number] [place] [address] March, [facility] [address] [id number] [place] [address] March, [facility] [address] [id number] [place] [address] March, [facility] [address] [id number] [place] [address] March, [facility] [address] [id number] [place] [address] March, [facility] [address] [id number] [place] [address] March, [facility] [address] [id number] [place] [address] March, [facility] [address] [id number] [place] [address] March, [facility] [address] [id number] [place] [address] 30 Feb, 2012 [facility] [address] [id number] [place] [address] 27 Feb, 2012 [facility] [address] [id number] [place] [address] Feb, [facility] [address] [id number] [place] [address] Feb, [facility] [address] [id number] [place] [address] Feb, [facility] [address] [id number] [place] [address] Feb, [facility] [address] [id number] [place] [address] Feb, [facility] [address] [id number] [place] [address] Feb, [facility] [address] [id number] [place] [address] Feb, [facility] [address] [id number] [place] [address] Jan, [facility] [address] [id number] [place] [address] Jan, [facility] [address] [id number] [place] [address] Jan, [facility] [address] [id number] [place] [address] Jan, [facility] [address] [id number] [place] [address] Dec, [facility] [address] [id number] [place] [address] Dec, [facility] [address] [id number] [place] [address] Nov, [facility] [address] [id number] [place] [address] Nov, [facility] [id number] [place] [address] Nov, [facility] [id number] [place] [address] Nov, [facility] [id number] [place] [address] Nov, [facility] [id number] [place] [address] Oct, [facility] [id number] [place] [address] Oct, [facility] [address] [address] Oct, [facility] [id number] [place] [address] Oct, [facility] [id number] [place] [address] Oct, [facility] [id number] [place] [address] Oct, [facility] [id number] [place] [address] Oct, [facility] [id number] [place] [address] Oct, [facility] [id number] [place] [address] Sep, IMMUNIZATIONS No Known Immunizations SOCIAL HISTORY [...] History No Surgical history information Hospitalization History [facility], [place]- Urosepsis, ab d pain and fever, discharged 11/27/2017 11/26/2017 Hospitalization History [facility]- Went Unrepsonsive, Hit head 2017 Hospitalization History [facility]- Back Pain 8
--- OUTSIDE RECORDS SUMMARY | 2020-06-18 14:59 | XMS REPORT ---
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 Name Role Phone Migration, Doctor Unavailable Unavailable PROBLEMS Type Condition ICD9-CM Code ESF89-LD Code Onset Dates Condition S tatus SNOMED Code Problem Coronary artery disease I25.10 Active 31944573 Problem Hypertension I10 Active 4957751 3 Problem Other chronic pain G89.29 Active 8 3437198 Problem Hyperlipidemia E78.5 Active 79860 004 Problem Type 2 diabetes mellitus wit hout complication, without long-term current use of insulin E11.9 Active 734249683 Problem Low back pain M54.5 Active 671860 009 Problem Pharyngeal dysphagia R13.13 Active [id number] Problem Anxiety F41.9 Active 93079653 Problem Peripheral vascular disease I73.9 Ac tive 674324586 Problem Neurogenic bladder N31.9 Active 3 94570134 Problem Reactive depression F32.9 Active 51171358 Problem Microcytic anemia D50.9 Active 23 3931655 Problem Ventral hernia without obstruction or gangrene K43 .9 Active 586608425 Problem Insomnia G47.00 Active 309884704 Problem Paroxysmal atrial fibrillation I48.0 Active 959103087 Problem 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 Active 61406107 Problem Encounter for suprapubic catheter care Z43.5 Active [id number] ALLERGIES No Information ENCOUNTERS Encounter Location Date Diagnosis [place] [address] [id number] [place] [address] Dec, Via [facility] [address] [place] [id number] Dec, Encounter for suprapubic catheter care Z 43.5 and Microcytic anemia D50.9 [place] [address] [id number] [place] [address] Dec, [place] [address] [id number] [place] [address] Nov, Anxiety F41.9 and Strain of right should er, subsequent encounter S46.911D [place] [address] [id number] [place] [address] 07 Nov, 2019 Hypertension I10 Via [facility] [address] [place] [id number] Nov, Pneumonia of both lungs due to infectiou s organism, unspecified part of lung J18.9 and Suprapubic catheter Z93.59 [place] [address] [id number] [place] [address] Nov, Hypertension I10 and Reactive depression F32.9 [place] [address] [id number] [place] [address] Oct, Strain of right shoulder, subsequent enc ounter S46.911D and Anxiety F41.9 [place] [address] [place] [id number] [place] [address] Oct, Via [facility] [address] [place] [id number] Oct, Suprapubic catheter Z93.59 and Candidias is, intertriginous B37.2 [place] [address] [id number] [place] [address] Oct, Suprapubic catheter Z93.59 [facility] [address] [id number] [place] [address] Oct, Anxiety F41.9 and Strain of right should er, subsequent encounter S46.911D [facility] [address] [id number] [place] [address] Sep, [facility] [address] [id number] [place] [address] Sep, [place] [address] [id number] [place] [address] Sep, Via [facility] [address] [place] [id number] Sep, Suprapubic catheter Z93.59 [place] [address] [place] [id number] [place] [address] Sep, Anxiety F41.9 and Strain of right should er, subsequent encounter S46.911D [place] [address] [place] [id number] [place] [address] Aug, [facility] [address] [place] [id number] [place] [address] Aug, [place] [address] [place] [id number] [place] [address] Aug, Anxiety F41.9 and Strain of right should er, subsequent encounter S46.911D Via [facility] [address] [place] [id number] Aug, Suprapubic catheter Z93.59 [place] [address] [place] [id number] [place] [address] Jul, Strain of right shoulder, subsequent enc ounter S46.911D and Anxiety F41.9 [place] [address] [place] [id number] [place] [address] Jul, Anxiety F41.9 [place] [address] [place] [id number] [place] [address] Jun, [place] [address] [place] [id number] [place] [address] Jun, [place] [address] [place] [id number] [place] [address] Jun, [place] [address] [place] [id number] [place] [address] Jun, Strain of right shoulder, subsequent enc ounter S46.911D [place] [address] [place] [id number] [place] [address] Jun, Strain of right shoulder, subsequent enc ounter S46.911D [place] [address] [place] [id number] [place] [address] Jun, Anxiety F41.9 Via [facility] [address] [place] [id number] Jun, Neurogenic bladder N31.9 and Anxiety F41 .9 Via [facility] [address] [place] [id number] May, Anxiety F41.9 [place] [address] [address] May, Dysuria R30.0 [place] [address] [address] May, Strain of right shoulder, subsequent enc ounter S46.911D and Anxiety F41.9 [place] [address] [address] Apr, Via [facility] [address] [place] [id number] 18 Apr, 2019 Strain of right shoulder, subsequent enc ounter S46.911D [place] [address] [address] 14 Apr, 2019 Strain of right shoulder, subsequent enc ounter S46.911D and Anxiety F41.9 Via [facility] [address] [place] [id number] 13 Apr, 2019 Type 2 diabetes mellitus without complic ation, without long-term current use of insulin E11.9 and Neurogenic bladder N31.9 Via [facility] [address] [place] [id number] Apr, Strain of right shoulder, subsequent enc ounter S46.911D ; History of GI bleed Z87.19 ; Neurogenic bladder N31.9 and Reactive depression F32.9 [place] [address] [address] 10 Apr, 2019 Acute pain of left shoulder M25.512 [place] [address] [address] 07 Apr, 2019 [place] [address] [address] Apr, Anxiety F41.9 and Other chronic pain G89 .29 Via [facility] [address] [place] [id number] March, Gastrointestinal hemorrhage associated w ith acute gastritis K29.01 [facility] [address] [address] March, Via [facility] [address] [place] [id number] March, Bronchitis J40 [facility] [address] [address] March, Cough R05 [facility] [address] [address] March, Other chronic pain G89.29 [place] [address] [address] March, Anxiety F41.9 [place] [address] [address] March, [facility] [address] [address] Feb, Other chronic pain G89.29 [facility] [address] [address] Feb, Anxiety F41.9 [facility] [address] [address] Feb, Other chronic pain G89.29 Via [facility] [address] [place] [id number] Feb, Neurogenic bladder N31.9 and Suprapubic catheter Z93.59 [facility] [address] [address] Jan, Anxiety F41.9 [facility] [address] [address] Dec, Anxiety F41.9 [facility] [address] [address] Dec, Other chronic pain G89.29 and Anxiety F4 1.9 [facility] [address] [id number] [place] [address] 15 Dec, 2018 Via [facility] [address] [place] [id number] Dec, Neurogenic bladder N31.9 and Suprapubic catheter Z93.59 [facility] [address] [place] [id number] [place] [address] Nov, Other chronic pain G89.29 and Anxiety F4 1.9 [facility] [address] [address] Nov, Via [facility] [address] [place] [id number] Nov, Suprapubic catheter Z93.59 [facility] [address] [address] Oct, Other chronic pain G89.29 and Anxiety F4 1.9 [facility] [address] [address] Oct, [facility] [address] [address] Oct, Suprapubic catheter Z93.59 [facility] [address] [address] Oct, Via [facility] [address] [place] [id number] Oct, [facility] [address] [address] Oct, Anxiety F41.9 [place] [address] [address] Oct, Anxiety F41.9 Via [facility] [address] [place] [id number] Oct, Other chronic pain G89.29 [facility] [address] [address] Sep, Other chronic pain G89.29 Via [facility] [employer] [address] [place] [id number] Sep, Suprapubic catheter Z93.59 and Cervicalg ia M54.2 [facility] [address] [address] Sep, [facility] [address] [address] Sep, [facility] [address] [address] Sep, Via [facility] [address] [place] [id number] Aug, Cystitis N30.90 [place] [address] [address] Aug, [place] [address] [address] Aug, Other chronic pain G89.29 [place] [address] [address] Aug, Via [facility] [employer] [address] [place] [id number] Aug, Encounter for suprapubic catheter care Z 43.5 [place] [address] [address] Jul, Via [facility] [employer] [address] [place] [id number] Jul, [place] [address] [address] Jul, Other chronic pain G89.29 [facility] [address] [address] Jul, [place] [address] [address] Jul, Via [facility] [address] [place] [id number] Jun, Postmenopausal atrophic vaginitis N95.2 [place] [address] [address] Jun, Other chronic pain G89.29 [facility] [address] [address] Jun, Via [employer] [address] [place] [id number] May, Anxiety F41.9 ; Type 2 diabetes mellitus without complication, without long-term current use of insulin E11.9 ; Hypertension I10 ; Low back pain M54.5 ; Paroxysmal atrial fibrillation I48.0 and 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 [facility] [address] [address] May, Other chronic pain G89.29 Via [employer] [address] [place] [id number] May, Low back pain M54.5 [place] [address] [address] May, [place] [address] [address] Apr, Other chronic pain G89.29 [place] [address] [address] Apr, [place] [address] [address] Apr, Via [employer] [address] [place] [id number] Apr, Closed compression fracture of L3 lumbar vertebra with routine healing, subsequent encounter S32.030D [facility] [employer] [address] [place] [id number] Apr, Low back pain M54.5 [facility] [employer] [address] [place] [id number] Apr, Coccydynia M53.3 [place] [address] [address] March, [place] [address] [address] March, Other chronic pain G89.29 [facility] [address] [place] [address] [place] [address] March, [facility] [address] [address] March, [facility] [address] [address] Feb, [facility] [address] [address] Feb, Other chronic pain G89.29 Via [facility] [address] [place] [id number] Feb, Other chronic pain G89.29 and Anxiety F4 1.9 [place] [address] [address] Feb, [facility] [address] [address] Jan, [facility] [address] [address] Jan, [facility] [address] [address] Jan, [facility] [address] [address] Jan, [facility] [address] [address] Dec, Via 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 [address] [place] [id number] Nov, Status post surgery Z98.890 ; Confused R 41.0 ; Anxiety F41.9 and Other chronic pain G89.29 [place] [address] [id number] [place] [id number] Nov, Other chronic pain G89.29 [place] [address] [address] Oct, [place] [address] [id number] [place] [id number] Oct, Other chronic pain G89.29 [place] [address] [address] Oct, Anxiety F41.9 [place] [address] [id number] [place] [id number] Sep, Other chronic pain G89.29 [place] [address] [id number] [place] [id number] Sep, Via [facility] [address] [place] [id number] Aug, Dysuria R30.0 and Anxiety F41.9 [place] [address] [address] Aug, [place] [address] [id number] [place] [id number] Aug, Other chronic pain G89.29 [place] [address] [address] Jul, Other chronic pain G89.29 [facility] [address] [id number] [place] [id number] Jun, [facility] [address] [id number] [place] [id number] Jun, Other chronic pain G89.29 [facility] [address] [place] [id number] [place] [address] Jun, [facility] [address] [address] May, Other chronic pain G89.29 [facility] [address] [address] Apr, Other chronic pain G89.29 [facility] [address] [place] [id number] Apr, Reactive depression F32.9 and Pharyngeal dysphagia R13.13 [place] [address] [address] Apr, Urinary tract infection without hematuri a, site unspecified N39.0 [facility] [address] [address] March, Other chronic pain G89.29 [facility] [address] [place] [address] [place] [address] Feb, Other chronic pain G89.29 [facility] [address] [place] [address] [place] [address] Feb, [facility] [address] [id number] [place] [id number] Feb, [facility] [employer] [address] [place] [id number] Feb, Dysuria R30.0 and Ventral hernia without obstruction or gangrene K43.9 [facility] [address] [place] [id number] [place] [address] Jan, Other chronic pain G89.29 [facility] [address] [id number] [place] [address] Dec, Other chronic pain G89.29 [facility] [address] [address] Nov, Other chronic pain G89.29 [facility] [address] [place] [id number] Nov, Lymphadenitis I88.9 [facility] [address] [address] Nov, Other chronic pain G89.29 [facility] [address] [address] Nov, [facility] [address] [id number] [place] [address] Nov, Other chronic pain G89.29 [facility] [address] [place] [id number] Oct, Low back pain M54.5 ; Hypertension I10 a nd Type 2 diabetes mellitus without complication, without long-term current use of insulin E11.9 [facility] [address] [address] Oct, [facility] [address] [address] Oct, [facility] [address] [address] Oct, [facility] [address] [address] Oct, [facility] [address] [address] Sep, [facility] [address] [address] Sep, [facility] [address] [address] Aug, Other chronic pain G89.29 [facility] [address] [address] Jul, [facility] [address] [id number] [place] [address] Jul, [facility] [address] [address] Jul, [facility] [address] [place] [address] Jun, [facility] [address] [address] Jun, [facility] [address] [place] [id number] Jun, Low back pain M54.5 ; Other chronic pain G89.29 and Coronary artery disease I25.10 [facility] [address] [place] [address] Jun, [facility] [address] [address] May, [facility] [address] [address] May, [facility] [address] [address] May, Other chronic pain G89.29 [facility] [address] [address] May, [facility] [address] [address] Apr, [facility] [address] [address] 17 Apr, 2016 Acute cystitis without hematuria N30.00 [facility] [address] [address] 16 Apr, 2016 Acute cystitis without hematuria N30.00 ; Coronary artery disease I25.10 ; Low back pain M54.5 and Other chronic pain G89.29 [facility] [address] [place] [address] Apr, Other chronic pain G89.29 [facility] [id number] [place] [address] March, Other chronic pain G89.29 [facility] [address] [place] [address] 18 Feb, 2016 [facility] [id number] [place] [address] 15 Feb, 2016 Arthritis M19.90 [facility] [address] [place] [address] Feb, [facility] [address] [place] [address] 30 Jan, 2016 [facility] [address] [address] Jan, [facility] [address] [address] Jan, Other chronic pain G89.29 [facility] [address] [place] [address] Jan, Hypertension I10 ; Coronary artery disea se I25.10 and Insomnia G47.00 [facility] [address] [place] [address] Jan, [facility] [address] [place] [address] Dec, Right hip pain M25.551 [facility] [address] [place] [address] Dec, [facility] [address] [place] [address] Dec, [facility] [address] [address] Dec, [facility] [address] [place] [address] Dec, Other chronic pain G89.29 [facility] [id number] [place] [address] Dec, [facility] [address] [address] Nov, [facility] [address] [address] Nov, Other chronic pain G89.29 [facility] [address] [address] Nov, Right hip pain M25.551 and Coronary karissa ry disease I25.10 [facility] [address] [address] Nov, Other chronic pain G89.29 [facility] [address] [address] Oct, [facility] [address] [address] Oct, [facility] [address] [address] Sep, [facility] [address] [address] Sep, [facility] [address] [address] Aug, [facility] [address] [address] Aug, Hypertension I10 ; Coronary artery disea se I25.10 and Arthritis M19.90 [facility] [address] [address] Jun, [facility] [address] [address] Jun, Essential hypertension, benign 401.1 ; O ther chronic pain 338.29 and Chronic airway obstruction, not elsewhere classified 496 [facility] [address] [address] Jun, [facility] [address] [address] Jun, [facility] [address] [facility] [id number] [place] [address] Jun, [facility] [address] [id number] [place] [address] May, [facility] [address] [id number] [place] [address] May, [facility] [address] [id number] [place] [address] Apr[facility] [address] [facility] [id number] [place] [address] Apr, [facility] [address] [id number] [place] [address] Apr, [facility] [address] [id number] [place] [address] March, [facility] [address] [id number] [place] [address] March, [facility] [address] [id number] [place] [address] March, [facility] [address] [id number] [place] [address] March, [facility] [address] [id number] [place] [address] March, Sialadenitis 527.2 [facility] [address] [id number] [place] [address] Feb, [facility] [address] [id number] [place] [address] Feb, [facility] [address] [id number] [place] [address] Feb, [facility] [address] [id number] [place] [address] 14 Feb, 2015 [facility] [address] [id number] [place] [address] Feb, [facility] [address] [id number] [place] [address] Jan, [facility] [address] [facility] [id number] [place] [address] Jan, [facility] [address] [id number] [place] [address] Jan, [facility] [address] [id number] [place] [address] Jan, [facility] [address] [id number] [place] [address] Jan, [facility] [address] [id number] [place] [address] Jan, [facility] [address] [id number] [place] [address] Dec, [facility] [address] [id number] [place] [address] Dec, [facility] [address] [id number] [place] [address] Dec, [facility] [address] [id number] [place] [address] Dec, [facility] [place] [facility] [address] [id number] [place] [address] Dec, [facility] [place] [facility] [address] [id number] [place] [address] Dec, [facility] [place] [facility] [address] [id number] [place] [address] Nov, [facility] [place] [facility] [address] [id number] [place] [address] Nov, [facility] [place] [facility] [address] [id number] [place] [address] Nov, [facility] [place] [facility] [address] [id number] [place] [address] Nov, [facility] [place] [facility] [address] [id number] [place] [address] Nov, [facility] [address] [id number] [place] [address] Nov, [facility] [place] [facility] [address] [id number] [place] [address] Nov, [facility] [place] [facility] [address] [id number] [place] [address] Nov, [facility] [place] [facility] [address] [id number] [place] [address] Nov, [facility] [place] [facility] [address] [id number] [place] [address] Nov, [facility] [place] [facility] [address] [id number] [place] [address] Nov, [facility] [place] [facility] [address] [id number] [place] [address] Nov, [facility] [place] [facility] [address] [id number] [place] [address] Nov, [facility] [place] [facility] [address] [id number] [place] [address] Nov, [facility] [place] [facility] [address] [id number] [place] [address] Oct, [facility] [place] [facility] [address] [id number] [place] [address] Oct, [facility] [place] [facility] [address] [id number] [place] [address] Oct, [facility] [place] [facility] [address] [id number] [place] [address] Oct, [facility] [place] [facility] [address] [id number] [place] [address] 18 Oct, 2014 [facility] [place] [facility] [address] [id number] [place] [address] Oct, [facility] [place] [facility] [address] [id number] [place] [address] Oct, [facility] [place] [facility] [address] [id number] [place] [address] Oct, [facility] [place] [facility] [address] [id number] [place] [address] Oct, [facility] [place] [facility] [address] [id number] [place] [address] Sep, [facility] [place] [facility] [address] [id number] [place] [address] Sep, [facility] [place] [facility] [address] [id number] [place] [address] Sep, [facility] [place] [facility] [address] [id number] [place] [address] Sep, [facility] [place] [facility] [address] [id number] [place] [address] Sep, [facility] [place] [facility] [address] [id number] [place] [address] Sep, [facility] [place] [facility] [address] [id number] [place] [address] Sep, [facility] [place] [facility] [address] [id number] [place] [address] Sep, [facility] [place] [facility] [address] [id number] [place] [address] Sep, [facility] [place] [facility] [address] [id number] [place] [address] Sep, [facility] [place] [facility] [address] [id number] [place] [address] Sep, [facility] [place] [facility] [address] [id number] [place] [address] Sep, [facility] [place] [facility] [address] [id number] [place] [address] Aug, [facility] [place] [facility] [address] [id number] [place] [address] Aug, [facility] [place] [facility] [address] [id number] [place] [address] Aug, [facility] [place] [facility] [address] [id number] [place] [address] 29 Aug, 2014 [facility] [place] [facility] [address] [id number] [place] [address] 28 Aug, 2014 [facility] [place] [facility] [address] [id number] [place] [address] 28 Aug, 2014 [facility] [place] [facility] [address] [id number] [place] [address] Aug, [facility] [place] [facility] [address] [id number] [place] [address] 17 Aug, 2014 [facility] [place] [facility] [address] [id number] [place] [address] 30 Jul, 2013 [facility] [place] [facility] [address] [id number] [place] [address] 30 Jul, 2013 [facility] [place] [facility] [address] [id number] [place] [address] 30 Jul, 2013 [facility] [place] [facility] [address] [id number] [place] [address] 30 Jul, 2013 [facility] [place] [facility] [address] [id number] [place] [address] 25 Jul, 2014 [facility] [place] [facility] [address] [id number] [place] [address] 25 Jul, 2013 [facility] [place] [facility] [address] [id number] [place] [address] 15 Jul, 2013 [facility] [place] [facility] [address] [id number] [place] [address] 15 Jul, 2013 [facility] [place] [facility] [address] [id number] [place] [address] 11 Jul, 2013 [facility] [place] [facility] [address] [id number] [place] [address] Jul, 2013 [facility] [place] [facility] [address] [id number] [place] [address] Jun, [facility] [place] [facility] [address] [id number] [place] [address] Jun, [facility] [place] [facility] [address] [id number] [place] [address] Jun, [facility] [place] [facility] [address] [facility] [id number] [facility], [place] [address] Jun, [facility] [place] [facility] [address] [facility] [id number] [place] [address] Jun, [facility] [place] [facility] [address] [id number] [facility], [place] [address] Jun, [facility] [place] [facility] [address] [facility] [id number] [facility], [place] [address] Jun, [facility] [place] [facility] [address] [id number] [place] [address] Jun, [facility] [place] [facility] [address] [id number] [place] [address] Jun, [facility] [place] [facility] [address] [id number] [place] [address] Jun, [facility] [place] [facility] [address] [facility] [id number] [place] [address] Jun, [facility] [place] [facility] [address] [id number] [place] [address] Jun, [facility] [place] [facility] [address] [id number] [place] [address] Jun, [facility] [place] [facility] [address] [id number] [place] [address] Jun, [facility] [place] [facility] [address] [facility] [id number] [place] [address] Jun, [facility] [place] [facility] [address] [id number] [place] [address] Jun, [facility] [place] [facility] [address] [facility] [id number] [place] [address] Jun, [facility] [place] [facility] [address] [id number] [place] [address] Jun, [facility] [place] [facility] [address] [id number] [place] [address] Jun, [facility] [place] [facility] [address] [id number] [place] [address] Jun, [facility] [place] [facility] [address] [facility] [id number] [facility], [place] [address] Jun, [facility] [place] [facility] [address] [facility] [id number] [facility], [place] [address] Jun, [facility] [place] [facility] [address] [facility] [id number] [facility], [place] [address] May, [facility] [place] [facility] [address] [facility] [id number] [place] [address] May, [facility] [place] [facility] [address] [facility] [id number] [place] [address] May, [facility] [place] [facility] [address] [id number] [facility], [place] [address] May, [facility] [place] [facility] [address] [id number] [facility], [place] [address] May, [facility] [place] [facility] [address] [facility] [id number] [facility], [place] [address] May, [facility] [place] [facility] [address] [facility] [id number] [facility], [place] [address] May, 2013 [facility] [place] [facility] [address] [facility] [id number] [place] [address] May, 2013 [facility] [place] [facility] [address] [id number] [facility], [place] [address] May, 2013 [facility] [place] [facility] [address] [facility] [id number] [facility], [place] [address] May, [facility] [place] [facility] [address] [id number] [facility], [place] [address] May, [facility] [place] [facility] [address] [facility] [id number] [facility], [place] [address] May, [facility] [place] [facility] [address] [id number] [facility], [place] [address] May, [facility] [place] [facility] [address] [facility] [id number] [facility], [place] [address] Apr, [facility] [place] [facility] [address] [facility] [id number] [place] [address] Apr, [facility] [place] [facility] [address] [facility] [id number] [place] [address] Apr, [facility] [place] [facility] [address] [id number] [place] [address] Apr, [facility] [place] [facility] [address] [facility] [id number] [place] [address] Apr, [facility] [place] [facility] [address] [facility] [id number] [place] [address] Apr, [facility] [place] [facility] [address] [id number] [place] [address] Apr, [facility] [place] [facility] [address] [id number] [place] [address] Apr, [facility] [place] [facility] [address] [id number] [place] [address] Apr, [facility] [place] [facility] [address] [id number] [place] [address] March, [facility] [place] [facility] [address] [id number] [place] [address] March, [facility] [place] [facility] [address] [id number] [place] [address] March, [facility] [place] [facility] [address] [id number] [place] [address] March, [facility] [place] [facility] [address] [facility] [id number] [place] [address] March, [facility] [place] [facility] [address] [id number] [place] [address] March, [facility] [place] [facility] [address] [id number] [place] [address] March, [facility] [place] [facility] [address] [id number] [place] [address] March, [facility] [place] [facility] [address] [id number] [place] [address] March, [facility] [place] [facility] [address] [id number] [place] [address] March, [facility] [place] [facility] [address] [id number] [place] [address] March, [facility] [place] [facility] [address] [id number] [place] [address] March, [facility] [place] [facility] [address] [id number] [place] [address] March, [facility] [place] [facility] [address] [id number] [place] [address] March, [facility] [place] [facility] [address] [id number] [place] [address] March, [facility] [place] [facility] [address] [id number] [place] [address] March, [facility] [place] [facility] [address] [id number] [place] [address] March, [facility] [place] [facility] [address] [id number] [place] [address] March, [facility] [place] [facility] [address] [id number] [place] [address] March, [facility] [place] [facility] [address] [id number] [place] [address] March, [facility] [place] [facility] [address] [id number] [place] [address] Feb, [facility] [place] [facility] [address] [id number] [place] [address] Feb, [facility] [place] [facility] [address] [id number] [place] [address] Feb, [facility] [place] [facility] [address] [id number] [place] [address] Feb, [facility] [place] [facility] [address] [id number] [place] [address] Feb, [facility] [place] [facility] [address] [facility] [id number] [facility], [place] [address] Feb, [facility] [place] [facility] [address] [facility] [id number] [place] [address] Feb, [facility] [place] [facility] [address] [id number] [place] [address] Feb, [facility] [place] [facility] [address] [id number] [place] [address] Jan, [facility] [place] [facility] [address] [facility] [id number] [place] [address] Jan, [facility] [place] [facility] [address] [id number] [place] [address] Jan, [facility] [place] [facility] [address] [id number] [place] [address] Jan, [facility] [place] [facility] [address] [id number] [place] [address] Jan, [facility] [place] [facility] [address] [id number] [place] [address] Jan, [facility] [place] [facility] [address] [id number] [place] [address] Jan, [facility] [place] [facility] [address] [id number] [place] [address] Jan, [facility] [place] [facility] [address] [id number] [place] [address] Jan, [facility] [place] [facility] [address] [facility] [id number] [place] [address] Jan, [facility] [place] [facility] [address] [id number] [place] [address] Dec, [facility] [place] [facility] [address] [id number] [place] [address] Dec, [facility] [place] [facility] [address] [id number] [place] [address] Dec, [facility] [place] [facility] [address] [id number] [place] [address] Dec, [facility] [place] [facility] [address] [id number] [place] [address] Dec, [facility] [place] [facility] [address] [id number] [place] [address] Dec, [facility] [place] [facility] [address] [id number] [place] [address] Dec, [facility] [place] [facility] [address] [id number] [place] [address] Dec, [facility] [place] [facility] [address] [id number] [place] [address] Nov, [facility] [place] [facility] [address] [id number] [place] [address] Nov, [facility] [place] [facility] [address] [id number] [place] [address] Nov, [facility] [place] [facility] [address] [id number] [place] [address] Nov, [facility] [place] [facility] [address] [id number] [place] [address] Nov, [facility] [place] [facility] [address] [id number] [place] [address] Nov, [facility] [place] [facility] [address] [id number] [place] [address] Nov, [facility] [place] [facility] [address] [id number] [place] [address] Nov, [facility] [place] [facility] [address] [id number] [place] [address] Nov, [facility] [place] [facility] [address] [id number] [place] [address] Nov, [facility] [place] [facility] [address] [id number] [place] [address] Nov, [facility] [place] [facility] [address] [id number] [place] [address] Nov, [facility] [place] [facility] [address] [id number] [place] [address] Nov, [facility] [place] [facility] [address] [id number] [place] [address] Oct, [facility] [place] [facility] [address] [id number] [place] [address] Oct, [facility] [place] [facility] [address] [id number] [place] [address] Oct, [facility] [place] [facility] [address] [id number] [place] [address] Oct, [facility] [place] [facility] [address] [id number] [place] [address] Oct, [facility] [place] [facility] [address] [id number] [place] [address] Oct, [facility] [place] [facility] [address] [id number] [place] [address] Oct, [facility] [place] [facility] [address] [id number] [place] [address] Oct, [facility] [place] [facility] [address] [id number] [place] [address] Oct, [facility] [place] [facility] [address] [id number] [place] [address] Oct, [facility] [place] [facility] [address] [id number] [place] [address] Oct, [facility] [place] [facility] [address] [id number] [place] [address] Oct, [facility] [place] [facility] [address] [id number] [place] [address] Oct, [facility] [place] [facility] [address] [id number] [place] [address] Oct, [facility] [place] [facility] [address] [id number] [place] [address] 14 Sep, 2013 [facility] [place] [facility] [address] [id number] [place] [address] Sep, [facility] [place] [facility] [address] [id number] [place] [address] Sep, [facility] [place] [facility] [address] [id number] [place] [address] Sep, [facility] [place] [facility] [address] [id number] [place] [address] Sep, [facility] [place] [facility] [address] [id number] [place] [address] Sep, [facility] [place] [facility] [address] [id number] [place] [address] Sep, [facility] [place] [facility] [address] [id number] [place] [address] Sep, [facility] [place] [facility] [address] [id number] [place] [address] Sep, [facility] [place] [facility] [address] [id number] [place] [address] Sep, [facility] [place] [facility] [address] [id number] [place] [address] Aug, [facility] [place] [facility] [address] [id number] [place] [address] Aug, [facility] [place] [facility] [address] [id number] [place] [address] Aug, [facility] [place] [facility] [address] [id number] [place] [address] Aug, [facility] [place] [facility] [address] [id number] [place] [address] Aug, [facility] [place] [facility] [address] [id number] [place] [address] Aug, [facility] [place] [facility] [address] [id number] [place] [address] Aug, [facility] [place] [facility] [address] [id number] [place] [address] Aug, [facility] [place] [facility] [address] [id number] [place] [address] 22 Aug, 2012 [facility] [place] [facility] [address] [id number] [place] [address] 22 Aug, 2012 [facility] [place] [facility] [address] [id number] [place] [address] 18 Aug, 2012 [facility] [place] [facility] [address] [id number] [place] [address] 18 Aug, 2012 [facility] [place] [facility] [address] [id number] [place] [address] 18 Aug, 2012 [facility] [place] [facility] [address] [id number] [place] [address] 18 Aug, 2012 [facility] [place] [facility] [address] [id number] [place] [address] 17 Aug, 2012 [facility] [place] [facility] [address] [id number] [place] [address] 14 Aug, 2012 [facility] [place] [facility] [address] [id number] [place] [address] 14 Aug, 2013 [facility] [place] [facility] [address] [id number] [place] [address] 01 Aug, 2013 [facility] [place] [facility] [address] [id number] [place] [address] 20 Jul, 2012 [facility] [place] [facility] [address] [id number] [place] [address] 19 Jul, 2012 [facility] [place] [facility] [address] [id number] [place] [address] 18 Jul, 2012 [facility] [place] [facility] [address] [id number] [place] [address] 11 Jul, 2012 [facility] [place] [facility] [address] [id number] [place] [address] 11 Jul, 2012 [facility] [place] [facility] [address] [id number] [place] [address] 28 Jun, 2012 [facility] [place] [facility] [address] [id number] [facility], [place] [address] Jun, [facility] [place] [facility] [address] [id number] [place] [address] Jun, [facility] [place] [facility] [address] [facility] [id number] [place] [address] Jun, [facility] [place] [facility] [address] [id number] [facility], [place] [address] Jun, [facility] [place] [facility] [address] [facility] [id number] [place] [address] Jun, [facility] [place] [facility] [address] [facility] [id number] [place] [address] Jun, [facility] [place] [facility] [address] [id number] [place] [address] Jun, [facility] [place] [facility] [address] [id number] [facility], [place] [address] Jun, [facility] [place] [facility] [address] [id number] [facility], [place] [address] Jun, [facility] [place] [facility] [address] [facility] [id number] [facility], [place] [address] May, [facility] [place] [facility] [address] [id number] [facility], [place] [address] May, [facility] [place] [facility] [address] [id number] [facility], [place] [address] May, [facility] [place] [facility] [address] [id number] [facility], [place] [address] May, [facility] [place] [facility] [address] [facility] [id number] [facility], [place] [address] May, [facility] [place] [facility] [address] [id number] [facility], [place] [address] 16 May, 2013 [facility] [place] [facility] [address] [facility] [id number] [facility], [place] [address] May, [facility] [place] [facility] [address] [id number] [facility], [place] [address] May, [facility] [place] [facility] [address] [id number] [facility], [place] [address] May, [facility] [place] [facility] [address] [id number] [place] [address] Apr, [facility] [place] [facility] [address] [facility] [id number] [place] [address] Apr, [facility] [place] [facility] [address] [id number] [place] [address] Apr, [facility] [place] [facility] [address] [facility] [id number] [facility], [place] [address] Apr, [facility] [place] [facility] [address] [facility] [id number] [place] [address] Apr, [facility] [place] [facility] [address] [id number] [place] [address] Apr, [facility] [place] [facility] [address] [id number] [place] [address] Apr, [facility] [place] [facility] [address] [id number] [place] [address] March, [facility] [place] [facility] [address] [facility] [id number] [place] [address] Feb, [facility] [place] [facility] [address] [id number] [place] [address] Feb, [facility] [place] [facility] [address] [id number] [place] [address] Feb, [facility] [place] [facility] [address] [id number] [place] [address] Jan, [facility] [place] [facility] [address] [facility] [id number] [place] [address] Jan, [facility] [place] [facility] [address] [id number] [place] [address] 19 Jan, 2013 [facility] [place] [facility] [address] [id number] [place] [address] 14 Jan, 2013 [facility] [place] [facility] [address] [id number] [place] [address] Jan, [facility] [address] [facility] [id number] [facility], [place] [address] 08 Jan, 2013 [facility] [address] [facility] [id number] [facility], [place] [address] 07 Jan, 2013 [facility] [address] [facility] [id number] [facility], [place] [address] 04 Jan, 2013 [facility] [address] [id number] [facility], [place] [address] 28 Dec, 2012 [facility] [address] [facility] [id number] [facility], [place] [address] 25 Dec, 2012 [facility] [address] [id number] [facility], [place] [address] 13 Dec, 2012 [facility] [address] [id number] [place] [address] Dec, [facility] [address] [id number] [place] [address] 07 Dec, 2012 [facility] [address] [id number] [place] [address] 06 Dec, 2012 [facility] [address] [id number] [place] [address] 05 Dec, 2012 [facility] [address] [id number] [place] [address] Nov, [facility] [address] [id number] [place] [address] 24 Nov, 2012 [facility] [address] [id number] [place] [address] 18 Nov, 2012 [facility] [address] [id number] [place] [address] 15 Nov, 2012 [facility] [address] [id number] [place] [address] Nov, [facility] [address] [id number] [place] [address] Nov, [facility] [address] [id number] [place] [address] Nov, [facility] [address] [id number] [place] [address] Oct, [facility] [address] [id number] [place] [address] Oct, [facility] [address] [id number] [place] [address] Oct, [facility] [address] [id number] [place] [address] Oct, [facility] [address] [id number] [place] [address] Oct, [facility] [address] [id number] [place] [address] Oct, [facility] [address] [id number] [place] [address] Oct, [facility] [address] [id number] [place] [address] Oct, [facility] [address] [id number] [place] [address] Oct, [facility] [address] [id number] [place] [address] Oct, [facility] [address] [id number] [place] [address] Oct, [facility] [address] [id number] [place] [address] Oct, [facility] [address] [id number] [place] [address] Sep, [facility] [id number] [place] [address] Sep, [facility] [address] [id number] [place] [address] Sep, [facility] [address] [id number] [place] [address] Sep, [facility] [address] [id number] [place] [address] Sep, [facility] [address] [id number] [place] [address] Sep, [facility] [address] [id number] [place] [address] Sep, [facility] [address] [id number] [place] [address] Sep, [facility] [address] [id number] [place] [address] Sep, [facility] [address] [id number] [place] [address] Sep, [facility] [address] [id number] [place] [address] Sep, [facility] [address] [id number] [place] [address] Aug, [facility] [address] [id number] [place] [address] Aug, [facility] [address] [id number] [place] [address] Aug, [facility] [address] [id number] [place] [address] Aug, [facility] [address] [id number] [place] [address] Aug, [facility] [address] [id number] [place] [address] Aug, [facility] [address] [id number] [place] [address] Aug, [facility] [address] [id number] [place] [address] Aug, [facility] [address] [id number] [place] [address] Aug, [facility] [address] [id number] [place] [address] Aug, [facility] [address] [id number] [facility], [place] [address] Jul, [facility] [address] [facility] [id number] [facility], [place] [address] Jul, [facility] [address] [id number] [facility], [place] [address] Jul, [facility] [address] [id number] [facility], [place] [address] Jul, [facility] [address] [facility] [id number] [facility], [place] [address] Jun, [facility] [address] [id number] [facility], [place] [address] Jun, [facility] [address] [id number] [place] [address] Jun, [facility] [address] [id number] [facility], [place] [address] Jun, [facility] [address] [id number] [place] [address] Jun, [facility] [address] [id number] [facility], [place] [address] Jun, [facility] [address] [id number] [place] [address] Jun, [facility] [address] [id number] [place] [address] May, [facility] [address] [id number] [place] [address] May, [facility] [address] [id number] [place] [address] May, [facility] [address] [id number] [place] [address] May, [facility] [address] [id number] [place] [address] May, [facility] [address] [id number] [place] [address] Apr, [facility] [address] [id number] [place] [address] Apr, [facility] [address] [id number] [place] [address] Apr, [facility] [address] [id number] [place] [address] Apr, [facility] [address] [id number] [place] [address] Apr, [facility] [address] [id number] [place] [address] March, [facility] [address] [id number] [place] [address] March, [facility] [address] [id number] [place] [address] March, [facility] [address] [id number] [place] [address] March, [facility] [address] [id number] [place] [address] March, [facility] [address] [id number] [place] [address] March, [facility] [address] [id number] [place] [address] March, [facility] [address] [id number] [place] [address] March, [facility] [address] [id number] [place] [address] March, [facility] [address] [id number] [place] [address] March, [facility] [address] [id number] [place] [address] Feb, [facility] [address] [id number] [place] [address] Feb, [facility] [address] [id number] [place] [address] Feb, [facility] [address] [id number] [place] [address] Feb, [facility] [address] [id number] [place] [address] Feb, [facility] [address] [id number] [place] [address] Feb, [facility] [address] [id number] [place] [address] Feb, [facility] [address] [id number] [place] [address] Feb, [facility] [address] [id number] [place] [address] Feb, [facility] [address] [id number] [place] [address] Jan, [facility] [address] [id number] [place] [address] Jan, [facility] [address] [id number] [place] [address] Jan, [facility] [address] [id number] [place] [address] Jan, [facility] [address] [id number] [place] [address] Dec, [facility] [address] [id number] [place] [address] Dec, [facility] [address] [id number] [place] [address] Nov, [facility] [address] [id number] [place] [address] Nov, [facility] [address] [id number] [place] [address] Nov, [facility] [address] [id number] [place] [address] Nov, [facility] [id number] [place] [address] Nov, [facility] [id number] [place] [address] Oct, [facility] [id number] [place] [address] Oct, [facility] [address] [address] Oct, [facility] [address] [address] Oct, [facility] [address] [address] Oct, [facility] [id number] [place] [address] Oct, [facility] [address] [address] Oct, [facility] [id number] [place] [address] Oct, [facility] [id number] [place] [address] Sep, IMMUNIZATIONS No Known Immunizations SOCIAL HISTORY [...] History No Surgical history information Hospitalization History [facility]- Urosepsis, ab d pain and fever, discharged 11/27/2017 11/26/2017 Hospitalization History [facility] [place]- Went Unrepsonsive, Hit head 2017 Hospitalization History [facility] [place]- Back Pain 8
--- OUTSIDE RECORDS SUMMARY | 2020-06-18 15:00 | XMS REPORT ---
Author Author Sanjuanita JOHNSON [facility] Address [address] [place] [address] Care Team Providers Care Artist Agent Name Role Phone ELIZABETHROYASHARIF Unavailable PROBLEMS Type Condition ICD9-CM Code OPT42-AI Code Onset Dates Condition S tatus SNOMED Code Problem Coronary artery disease I25.10 Active 21470864 Problem Hypertension I10 Active 9519515 3 Problem Other chronic pain G89.29 Active 8 5601277 Problem Hyperlipidemia E78.5 Active 59992 004 Problem Type 2 diabetes mellitus wit hout complication, without long-term current use of insulin E11.9 Active 764559329 Problem Low back pain M54.5 Active 220460 009 Problem Pharyngeal dysphagia R13.13 Active [id number] Problem Anxiety F41.9 Active 13295248 Problem Peripheral vascular disease I73.9 Ac tive 652838370 Problem Neurogenic bladder N31.9 Active 3 06374367 Problem Reactive depression F32.9 Active 09260330 Problem Microcytic anemia D50.9 Active 23 9163538 Problem Ventral hernia without obstruction or gangrene K43 .9 Active 930229215 Problem Insomnia G47.00 Active 090147845 Problem Paroxysmal atrial fibrillation I48.0 Active 751867872 Problem 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 Active 87091559 Problem Encounter for suprapubic catheter care Z43.5 Active 860111201 ALLERGIES No Information ENCOUNTERS Encounter Location Date Diagnosis [facility] [id number] [place] [address] Dec, Via [facility] [address] [place] [id number] Dec, Encounter for suprapubic catheter care Z 43.5 and Microcytic anemia D50.9 [facility] [address] [place] [address] Dec, [place] [id number] [place] [address] Nov, Anxiety F41.9 and Strain of right should er, subsequent encounter S46.911D [place] [id number] [place] [address] Nov, Hypertension I10 Via [facility] [address] [place] [id number] Nov, Pneumonia of both lungs due to infectiou s organism, unspecified part of lung J18.9 and Suprapubic catheter Z93.59 [place] [id number] [place] [address] Nov, Hypertension I10 and Reactive depression F32.9 [place] [id number] [place] [address] Oct, Strain of right shoulder, subsequent enc ounter S46.911D and Anxiety F41.9 [place] [id number] [place] [address] Oct, Via [employer] [place] [facility] [address] [place] [id number] Oct, Suprapubic catheter Z93.59 and Candidias is, intertriginous B37.2 [place] [id number] [place] [address] Oct, Suprapubic catheter Z93.59 [place] [id number] [place] [address] Oct, Anxiety F41.9 and Strain of right should er, subsequent encounter S46.911D [place] [id number] [place] [address] Sep, [place] [id number] [place] [address] Sep, [place] [id number] [place] [address] Sep, [facility] [address] [place] [id number] Sep, Suprapubic catheter Z93.59 [facility] [id number] [place] [address] Sep, Anxiety F41.9 and Strain of right should er, subsequent encounter S46.911D [facility] [id number] [place] [address] Aug, [facility] [id number] [place] [address] Aug, [facility] [id number] [place] [address] Aug, Anxiety F41.9 and Strain of right should er, subsequent encounter S46.911D [facility] [address] [place] [id number] Aug, Suprapubic catheter Z93.59 [facility] [id number] [place] [address] Jul, Strain of right shoulder, subsequent enc ounter S46.911D and Anxiety F41.9 [facility] [id number] [place] [address] Jul, Anxiety F41.9 [facility] [id number] [place] [address] Jun, [facility] [id number] [place] [address] Jun, [facility] [id number] [place] [address] Jun, [facility] [id number] [place] [address] Jun, Strain of right shoulder, subsequent enc ounter S46.911D [facility] [id number] [place] [address] Jun, Strain of right shoulder, subsequent enc ounter S46.911D [facility] [id number] [place] [address] Jun, Anxiety F41.9 [facility] [address] [place] [id number] Jun, Neurogenic bladder N31.9 and Anxiety F41 .9 [facility] [address] [place] [id number] May, Anxiety F41.9 [place] [address] [address] May, Dysuria R30.0 [place] [address] [address] May, Strain of right shoulder, subsequent enc ounter S46.911D and Anxiety F41.9 [place] [address] [address] Apr, Via [facility] [address] [place] [address] Apr, Strain of right shoulder, subsequent enc ounter S46.911D [place] [address] [address] 14 Apr, 2019 Strain of right shoulder, subsequent enc ounter S46.911D and Anxiety F41.9 [facility] [address] [place] [id number] 13 Apr, 2019 Type 2 diabetes mellitus without complic ation, without long-term current use of insulin E11.9 and Neurogenic bladder N31.9 [facility] [address] [place] [id number] Apr, Strain of right shoulder, subsequent enc ounter S46.911D ; History of GI bleed Z87.19 ; Neurogenic bladder N31.9 and Reactive depression F32.9 [place] [address] [address] 10 Apr, 2019 Acute pain of left shoulder M25.512 [place] [address] [address] 07 Apr, 2019 [place] [address] [address] Apr, Anxiety F41.9 and Other chronic pain G89 .29 [facility] [address] [place] [id number] March, Gastrointestinal hemorrhage associated w ith acute gastritis K29.01 [facility] [address] [address] March, Via [facility] [employer] [address] [place] [id number] March, Bronchitis J40 [facility] [address] [address] March, Cough R05 [place] [address] [address] March, Other chronic pain G89.29 [place] [address] [address] March, Anxiety F41.9 [facility] [address] [address] March, [facility] [address] [address] Feb, Other chronic pain G89.29 [facility] [address] [address] Feb, Anxiety F41.9 [place] [address] [address] Feb, Other chronic pain G89.29 [facility] [address] [place] [id number] Feb, Neurogenic bladder N31.9 and Suprapubic catheter Z93.59 [place] [address] [address] Jan, Anxiety F41.9 [facility] [address] [address] Dec, Anxiety F41.9 [facility] [address] [place] [address] Dec, Other chronic pain G89.29 and Anxiety F4 1.9 [facility] [address] [address] Dec, Via [employer] [address] [place] [id number] Dec, Neurogenic bladder N31.9 and Suprapubic catheter Z93.59 [facility] [address] [address] Nov, Other chronic pain G89.29 and Anxiety F4 1.9 [facility] [address] [address] Nov, Via [employer] [facility] [address] [place] [address] Nov, Suprapubic catheter Z93.59 [facility] [address] [address] Oct, Other chronic pain G89.29 and Anxiety F4 1.9 [facility] [address] [address] Oct, [facility] [address] [address] Oct, Suprapubic catheter Z93.59 [facility] [address] [address] Oct, Via [employer] [address] [place] [address] Oct, [facility] [address] [address] Oct, Anxiety F41.9 [facility] [address] [address] Oct, Anxiety F41.9 [facility] [address] [place] [id number] Oct, Other chronic pain G89.29 [place] [address] [address] 14 Sep, 2018 Other chronic pain G89.29 Via [employer] [address] [place] [id number] Sep, Suprapubic catheter Z93.59 and Cervicalg ia M54.2 [facility] [address] [address] Sep, [facility] [address] [address] Sep, [facility] [address] [address] Sep, Via [facility] [address] [place] [id number] Aug, Cystitis N30.90 [facility] [address] [address] Aug, [facility] [address] [address] Aug, Other chronic pain G89.29 [facility] [address] [address] Aug, Via [facility] [address] [place] [id number] Aug, Encounter for suprapubic catheter care Z 43.5 [facility] [address] [address] Jul, Via [employer] [address] [place] [id number] Jul, [facility] [address] [address] Jul, Other chronic pain G89.29 [facility] [address] [address] Jul, [facility] [address] [address] Jul, Via [facility] [address] [place] [address] Jun, Postmenopausal atrophic vaginitis N95.2 [place] [address] [address] Jun, Other chronic pain G89.29 [place] [address] [address] Jun, Via [facility] [address] [place] [id number] May, Anxiety F41.9 ; Type 2 diabetes mellitus without complication, without long-term current use of insulin E11.9 ; Hypertension I10 ; Low back pain M54.5 ; Paroxysmal atrial fibrillation I48.0 and 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 [place] [address] [address] May, Other chronic pain G89.29 [facility] [address] [place] [id number] May, Low back pain M54.5 [place] [address] [address] May, [place] [address] [address] Apr, Other chronic pain G89.29 [place] [address] [address] Apr, [place] [address] [address] Apr, Via [facility] [address] [place] [address] Apr, Closed compression fracture of L3 lumbar vertebra with routine healing, subsequent encounter S32.030D [facility] [address] [place] [address] Apr, Low back pain M54.5 [facility] [address] [place] [address] Apr, Coccydynia M53.3 [place] [address] [address] March, [facility] [id number] [place] [address] March, Other chronic pain G89.29 [facility] [id number] [place] [address] March, [facility] [id number] [place] [address] March, [facility] [id number] [place] [address] Feb, [facility] [id number] [place] [address] Feb, Other chronic pain G89.29 Via [facility] [employer] [place] [facility] [address] [place] [address] Feb, Other chronic pain G89.29 and Anxiety F4 1.9 [facility] [id number] [place] [address] Feb, [facility] [id number] [place] [address] Jan, [facility] [address] [address] Jan, [facility] [id number] [place] [address] Jan, [facility] [id number] [place] [address] Jan, [facility] [id number] [place] [address] Dec, Via [facility] [address] [place] [address] Dec, Peripheral vascular disease I73.9 ; 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 ; Other chronic pain G89.29 ; Anxiety F41.9 ; Reactive depression F32.9 ; Insomnia G47.00 and Type 2 diabetes mellitus without complication, without long-term current use of insulin E11.[id number] [address] Nov, [facility] [address] [id number] [place] [id number] Nov, Anxiety F41.9 [facility] [id number] [place] [address] Nov, [facility] [address] [id number] [place] [id number] Nov, Anxiety F41.9 [facility] [address] [place] [id number] Nov, Status post surgery Z98.890 ; Confused R 41.0 ; Anxiety F41.9 and Other chronic pain G89.29 [place] [address] [id number] [place] [id number] Nov, Other chronic pain G89.29 [place] [address] [address] Oct, [place] [address] [id number] [place] [id number] Oct, Other chronic pain G89.29 [place] [id number] [place] [address] Oct, Anxiety F41.9 [place] [address] [id number] [place] [id number] Sep, Other chronic pain G89.29 [place] [address] [id number] [place] [address] Sep, Via [facility] [address] [place] [id number] Aug, Dysuria R30.0 and Anxiety F41.9 [place] [id number] [place] [address] Aug, [place] [address] [id number] [place] [id number] Aug, Other chronic pain G89.29 [place] [id number] [place] [address] 11 Jul, 2017 Other chronic pain G89.29 [facility] [address] [id number] [place] [id number] Jun, [facility] [address] [id number] [place] [id number] 15 Jun, 2017 Other chronic pain G89.29 [facility] [address] [address] Jun, [place] [address] [address] May, Other chronic pain G89.29 [place] [address] [address] Apr, Other chronic pain G89.29 [facility] [employer] [place] [facility] [address] [place] [address] Apr, Reactive depression F32.9 and Pharyngeal dysphagia R13.13 [place] [address] [address] Apr, Urinary tract infection without hematuri a, site unspecified N39.0 [place] [address] [address] March, Other chronic pain G89.29 [place] [address] [address] Feb, Other chronic pain G89.29 [place] [address] [address] Feb, [facility] [address] [id number] [place] [address] Feb, Via [facility] [address] [place] [id number] Feb, Dysuria R30.0 and Ventral hernia without obstruction or gangrene K43.9 [place] [address] [address] Jan, Other chronic pain G89.29 [facility] [address] [id number] [place] [address] Dec, Other chronic pain G89.29 [facility] [address] [address] Nov, Other chronic pain G89.29 [facility] [address] [place] [id number] Nov, Lymphadenitis I88.9 [facility] [address] [address] Nov, Other chronic pain G89.29 [facility] [address] [address] Nov, [facility] [address] [id number] [place] [id number] Nov, Other chronic pain G89.29 [facility] [address] [place] [id number] Oct, Low back pain M54.5 ; Hypertension I10 a nd Type 2 diabetes mellitus without complication, without long-term current use of insulin E11.9 [facility] [address] [address] Oct, [facility] [address] [address] Oct, [facility] [address] [address] Oct, [facility] [address] [address] Oct, [facility] [address] [address] Sep, [facility] [address] [address] Sep, [facility] [address] [address] Aug, Other chronic pain G89.29 [facility] [id number] [place] [address] Jul, [facility] [id number] [place] [address] Jul, [facility] [id number] [place] [address] Jul, [facility] [id number] [place] [address] Jun, [facility] [id number] [place] [address] Jun, [facility] [address] [place] [id number] Jun, Low back pain M54.5 ; Other chronic pain G89.29 and Coronary artery disease I25.10 [facility] [id number] [place] [address] Jun, [facility] [id number] [place] [address] May, [facility] [id number] [place] [address] May, [facility] [id number] [place] [address] May, Other chronic pain G89.29 [facility] [id number] [place] [address] May, [facility] [id number] [place] [address] Apr, [facility] [id number] [place] [address] Apr, Acute cystitis without hematuria N30.00 [facility] [id number] [place] [address] 16 Apr, 2016 Acute cystitis without hematuria N30.00 ; Coronary artery disease I25.10 ; Low back pain M54.5 and Other chronic pain G89.29 [facility] [address] [address] [place] [address] 13 Apr, 2016 Other chronic pain G89.29 [facility] [address] [address] March, Other chronic pain G89.29 [facility] [id number] [place] [address] 18 Feb, 2016 [facility] [address] [address] 15 Feb, 2016 Arthritis M19.90 [facility] [address] [address] Feb, [facility] [address] [address] Jan, [facility] [address] [address] Jan, [facility] [address] [address] Jan, Other chronic pain G89.29 [facility] [address] [address] Jan, Hypertension I10 ; Coronary artery disea se I25.10 and Insomnia G47.00 [facility] [id number] [place] [address] Jan, [facility] [address] [address] Dec, Right hip pain M25.551 [facility] [address] [address] Dec, [facility] [address] [address] Dec, [facility] [address] [address] Dec, [facility] [address] [address] Dec, Other chronic pain G89.29 [facility] [address] [address] Dec, [facility] [address] [address] Nov, [facility] [address] [address] Nov, Other chronic pain G89.29 [facility] [address] [address] Nov, Right hip pain M25.551 and Coronary karissa ry disease I25.10 [facility] [address] [address] Nov, Other chronic pain G89.29 [facility] [address] [address] Oct, [facility] [address] [address] Oct, [facility] [address] [address] Sep, [facility] [address] [address] Sep, [facility] [address] [address] Aug, [facility] [address] [address] Aug, Hypertension I10 ; Coronary artery disea se I25.10 and Arthritis M19.90 [facility] [address] [address] Jun, [facility] [address] [address] Jun, Essential hypertension, benign 401.1 ; O ther chronic pain 338.29 and Chronic airway obstruction, not elsewhere classified 496 [facility] [address] [address] Jun, [facility] [address] [facility] [id number] [place] [address] Jun, [facility] [address] [facility] [id number] [place] [address] Jun, [facility] [id number] [place] [address] May, [facility] [id number] [place] [address] May, [facility] [id number] [place] [address] Apr, [facility] [address] [facility] [id number] [place] [address] Apr[facility] [address] [id number] [place] [address] Apr, [facility] [id number] [place] [address] March, [facility] [address] [facility] [id number] [place] [address] March, [facility] [id number] [place] [address] March, [facility] [address] [id number] [place] [address] March, [facility] [id number] [place] [address] March, Sialadenitis 527.2 [facility] [id number] [place] [address] Feb, [facility] [address] [id number] [place] [address] Feb, [facility] [address] [id number] [place] [address] Feb, [facility] [id number] [place] [address] Feb, [facility] [address] [id number] [place] [address] 13 Feb, 2015 [facility] [address] [facility] [id number] [facility] [address] Jan, [facility] [address] [facility] [id number] [place] [address] Jan, [facility] [address] [facility] [id number] [place] [address] Jan, [facility] [address] [facility] [id number] [place] [address] Jan, [facility] [address] [facility] [id number] [place] [address] Jan, [facility] [address] [facility] [id number] [place] [address] Jan, [facility] [address] [id number] [place] [address] Dec, [facility] [address] [id number] [place] [address] Dec, 2014 [facility] [address] [id number] [place] [address] Dec, [facility] [address] [facility] [id number] [place] [address] Dec, [facility] [address] [facility] [id number] [place] [address] Dec, [facility] [address] [facility] [id number] [place] [address] Dec, [facility] [address] [facility] [id number] [place] [address] Nov, [facility] [address] [facility] [id number] [place] [address] Nov, [facility] [address] [facility] [id number] [place] [address] Nov, [facility] [address] [id number] [place] [address] Nov, [facility] [id number] [place] [address] Nov, [facility] [place] [facility] [address] [facility] [id number] [place] [address] Nov, [facility] [place] [facility] [address] [facility] [id number] [place] [address] Nov, [facility] [place] [facility] [address] [id number] [place] [address] Nov, [facility] [place] [facility] [address] [id number] [place] [address] Nov, [facility] [place] [facility] [address] [id number] [place] [address] Nov, [facility] [place] [facility] [address] [id number] [place] [address] Nov, [facility] [place] [facility] [address] [id number] [place] [address] Nov, [facility] [place] [facility] [address] [id number] [place] [address] Nov, [facility] [place] [facility] [address] [facility] [id number] [place] [address] Nov, [facility] [place] [facility] [address] [id number] [place] [address] Oct, [facility] [place] [facility] [address] [facility] [id number] [place] [address] Oct, [facility] [place] [facility] [address] [facility] [id number] [place] [address] Oct, [facility] [place] [facility] [address] [facility] [id number] [place] [address] 18 Oct, 2014 [facility] [place] [facility] [address] [id number] [place] [address] Oct, [facility] [place] [facility] [address] [id number] [place] [address] 17 Oct, 2014 [facility] [place] [facility] [address] [facility] [id number] [place] [address] Oct, [facility] [place] [facility] [address] [facility] [id number] [place] [address] Oct, [facility] [place] [facility] [address] [facility] [id number] [place] [address] Oct, [facility] [place] [facility] [address] [facility] [id number] [place] [address] Sep, [facility] [place] [facility] [address] [facility] [id number] [place] [address] Sep, [facility] [place] [facility] [address] [facility] [id number] [place] [address] Sep, [facility] [place] [facility] [address] [facility] [id number] [place] [address] Sep, [facility] [place] [facility] [address] [facility] [id number] [place] [address] Sep, [facility] [place] [facility] [address] [facility] [id number] [place] [address] Sep, [facility] [place] [facility] [address] [facility] [id number] [place] [address] Sep, [facility] [place] [facility] [address] [facility] [id number] [place] [address] Sep, [facility] [place] [facility] [address] [facility] [id number] [place] [address] Sep, [facility] [place] [facility] [address] [facility] [id number] [place] [address] Sep, [facility] [place] [facility] [address] [id number] [place] [address] Sep, [facility] [place] [facility] [address] [facility] [id number] [place] [address] Sep, [facility] [place] [facility] [address] [facility] [id number] [place] [address] Aug, [facility] [place] [facility] [address] [id number] [place] [address] Aug, [facility] [place] [facility] [address] [id number] [place] [address] 29 Aug, 2013 [facility] [place] [facility] [address] [facility] [id number] [place] [address] 29 Aug, 2014 [facility] [place] [facility] [address] [facility] [id number] [place] [address] 28 Aug, 2014 [facility] [place] [facility] [address] [facility] [id number] [place] [address] 28 Aug, 2014 [facility] [place] [facility] [address] [id number] [place] [address] Aug, [facility] [place] [facility] [address] [facility] [id number] [place] [address] 17 Aug, 2014 [facility] [place] [facility] [address] [facility] [id number] [place] [address] 30 Jul, 2013 [facility] [place] [facility] [address] [id number] [place] [address] 30 Jul, 2013 [facility] [place] [facility] [address] [id number] [place] [address] 30 Jul, 2013 [facility] [place] [facility] [address] [facility] [id number] [place] [address] 30 Jul, 2013 [facility] [place] [facility] [address] [id number] [place] [address] 25 Jul, 2013 [facility] [place] [facility] [address] [id number] [place] [address] 25 Jul, 2013 [facility] [place] [facility] [address] [id number] [place] [address] 15 Jul, 2013 [facility] [place] [facility] [address] [facility] [id number] [place] [address] 15 Jul, 2013 [facility] [place] [facility] [address] [facility] [id number] [place] [address] 11 Jul, 2013 [facility] [place] [facility] [address] [facility] [id number] [place] [address] 11 Jul, 2013 [facility] [place] [facility] [address] [id number] [place] [address] Jun, [facility] [place] [facility] [address] [id number] [place] [address] Jun, [facility] [place] [facility] [address] [facility] [id number] [place] [address] Jun, [facility] [place] [facility] [address] [facility] [id number] [place] [address] Jun, [facility] [place] [facility] [address] [facility] [id number] [place] [address] Jun, [facility] [place] [facility] [address] [facility] [id number] [place] [address] Jun, [facility] [place] [facility] [address] [facility] [id number] [place] [address] Jun, [facility] [place] [facility] [address] [id number] [place] [address] Jun, [facility] [place] [facility] [address] [id number] [place] [address] Jun, [facility] [place] [facility] [address] [id number] [place] [address] Jun, [facility] [place] [facility] [address] [id number] [place] [address] Jun, [facility] [place] [facility] [address] [id number] [place] [address] Jun, [facility] [place] [facility] [address] [id number] [place] [address] Jun, [facility] [place] [facility] [id number] [place] [address] Jun, [facility] [place] [facility] [address] [id number] [place] [address] Jun, [facility] [place] [facility] [address] [id number] [place] [address] Jun, [facility] [place] [facility] [address] [id number] [place] [address] Jun, [facility] [place] [facility] [address] [id number] [place] [address] Jun, [facility] [place] [facility] [address] [id number] [place] [address] Jun, [facility] [place] [facility] [address] [facility] [id number] [place] [address] Jun, [facility] [place] [facility] [address] [id number] [place] [address] Jun, [facility] [place] [facility] [address] [facility] [id number] [place] [address] Jun, [facility] [place] [facility] [address] [facility] [id number] [place] [address] May, [facility] [place] [facility] [address] [facility] [id number] [place] [address] May, [facility] [place] [facility] [address] [id number] [place] [address] May, [facility] [place] [facility] [address] [id number] [place] [address] May, [facility] [place] [facility] [address] [facility] [id number] [place] [address] May, [facility] [place] [facility] [address] [facility] [id number] [place] [address] May, [facility] [place] [facility] [id number] [place] [address] May, 2013 [facility] [place] [facility] [id number] [place] [address] May, 2013 [facility] [place] [facility] [address] [facility] [id number] [place] [address] May, [facility] [place] [facility] [address] [id number] [place] [address] May, [facility] [place] [facility] [address] [facility] [id number] [place] [address] May, [facility] [place] [facility] [address] [facility] [id number] [place] [address] May, [facility] [place] [facility] [address] [facility] [id number] [place] [address] May, [facility] [place] [facility] [address] [id number] [place] [address] Apr, [facility] [place] [facility] [address] [facility] [id number] [place] [address] Apr, [facility] [place] [facility] [address] [facility] [id number] [place] [address] Apr, [facility] [place] [facility] [address] [facility] [id number] [place] [address] Apr, [facility] [place] [facility] [address] [facility] [id number] [place] [address] Apr, [facility] [place] [facility] [address] [facility] [id number] [place] [address] Apr, [facility] [place] [facility] [id number] [place] [address] Apr, [facility] [place] [facility] [id number] [place] [address] Apr, [facility] [place] [facility] [address] [facility] [id number] [place] [address] Apr, [facility] [place] [facility] [address] [facility] [id number] [place] [address] March, [facility] [place] [facility] [id number] [place] [address] March, [facility] [place] [facility] [id number] [place] [address] March, [facility] [place] [facility] [address] [facility] [id number] [place] [address] March, [facility] [place] [facility] [address] [id number] [place] [address] March, [facility] [place] [facility] [address] [facility] [id number] [place] [address] March, [facility] [place] [facility] [id number] [place] [address] March, [facility] [place] [facility] [id number] [place] [address] March, [facility] [place] [facility] [id number] [place] [address] March, [facility] [place] [facility] [address] [id number] [place] [address] March, [facility] [place] [facility] [address] [id number] [place] [address] March, [facility] [place] [facility] [address] [id number] [place] [address] March, [facility] [place] [facility] [address] [id number] [place] [address] March, [facility] [place] [facility] [id number] [place] [address] March, [facility] [place] [facility] [id number] [place] [address] March, [facility] [place] [facility] [address] [id number] [place] [address] March, [facility] [place] [facility] [address] [facility] [id number] [place] [address] March, [facility] [place] [facility] [address] [facility] [id number] [place] [address] March, [facility] [place] [facility] [address] [facility] [id number] [place] [address] March, [facility] [place] [facility] [address] [facility] [id number] [place] [address] March, [facility] [place] [facility] [address] [id number] [place] [address] Feb, [facility] [place] [facility] [address] [facility] [id number] [place] [address] Feb, [facility] [place] [facility] [address] [facility] [id number] [place] [address] Feb, [facility] [place] [facility] [address] [id number] [place] [address] Feb, [facility] [place] [facility] [address] [facility] [id number] [place] [address] Feb, [facility] [place] [facility] [address] [facility] [id number] [place] [address] Feb, [facility] [place] [facility] [address] [facility] [id number] [place] [address] Feb, [facility] [place] [facility] [address] [id number] [place] [address] Feb, [facility] [place] [facility] [address] [facility] [id number] [place] [address] Jan, [facility] [place] [facility] [address] [facility] [id number] [place] [address] Jan, [facility] [place] [facility] [address] [id number] [place] [address] Jan, [facility] [place] [facility] [address] [id number] [place] [address] Jan, [facility] [place] [facility] [address] [id number] [place] [address] Jan, [facility] [place] [facility] [address] [facility] [id number] [place] [address] Jan, [facility] [place] [facility] [address] [facility] [id number] [place] [address] Jan, [facility] [place] [facility] [address] [facility] [id number] [place] [address] Jan, [facility] [place] [facility] [address] [facility] [id number] [place] [address] Jan, [facility] [place] [facility] [address] [facility] [id number] [place] [address] Jan, [facility] [place] [facility] [address] [facility] [id number] [place] [address] Dec, [facility] [place] [facility] [address] [facility] [id number] [place] [address] Dec, [facility] [place] [facility] [address] [facility] [id number] [place] [address] Dec, [facility] [place] [facility] [address] [facility] [id number] [place] [address] Dec, [facility] [place] [facility] [address] [facility] [id number] [place] [address] Dec, [facility] [place] [facility] [address] [facility] [id number] [place] [address] Dec, [facility] [place] [facility] [address] [facility] [id number] [place] [address] Dec, [facility] [place] [facility] [address] [facility] [id number] [place] [address] Dec, [facility] [place] [facility] [address] [facility] [id number] [place] [address] Nov, [facility] [place] [facility] [address] [facility] [id number] [place] [address] Nov, [facility] [place] [facility] [address] [facility] [id number] [place] [address] Nov, [facility] [place] [facility] [address] [facility] [id number] [place] [address] Nov, [facility] [place] [facility] [address] [facility] [id number] [place] [address] Nov, [facility] [place] [facility] [address] [facility] [id number] [place] [address] Nov, [facility] [place] [facility] [address] [facility] [id number] [place] [address] Nov, [facility] [place] [facility] [address] [facility] [id number] [place] [address] Nov, [facility] [place] [facility] [address] [facility] [id number] [place] [address] Nov, [facility] [place] [facility] [address] [facility] [id number] [place] [address] Nov, [facility] [place] [facility] [address] [facility] [id number] [place] [address] Nov, [facility] [address] [facility] [id number] [place] [address] Nov, [facility] [place] [facility] [address] [id number] [place] [address] Nov, [facility] [place] [facility] [address] [id number] [place] [address] Oct, [facility] [place] [facility] [address] [id number] [place] [address] Oct, [facility] [place] [facility] [address] [id number] [place] [address] Oct, [facility] [place] [facility] [address] [id number] [place] [address] Oct, [facility] [place] [facility] [address] [id number] [place] [address] Oct, [facility] [place] [facility] [address] [id number] [place] [address] Oct, [facility] [place] [facility] [address] [id number] [place] [address] Oct, [facility] [place] [facility] [address] [id number] [place] [address] Oct, [facility] [place] [facility] [address] [id number] [place] [address] Oct, [facility] [place] [facility] [address] [id number] [place] [address] Oct, [facility] [place] [facility] [address] [id number] [place] [address] Oct, [facility] [place] [facility] [address] [id number] [place] [address] Oct, [facility] [place] [facility] [address] [id number] [place] [address] Oct, [facility] [place] [facility] [address] [id number] [place] [address] Oct, [facility] [place] [facility] [address] [id number] [place] [address] 14 Sep, 2013 [facility] [place] [facility] [address] [id number] [place] [address] 14 Sep, 2013 [facility] [place] [facility] [address] [id number] [place] [address] Sep, [facility] [place] [facility] [address] [id number] [place] [address] Sep, [facility] [place] [facility] [address] [id number] [place] [address] Sep, [facility] [place] [facility] [address] [id number] [place] [address] Sep, [facility] [place] [facility] [address] [id number] [place] [address] Sep, [facility] [place] [facility] [address] [id number] [place] [address] Sep, [facility] [place] [facility] [address] [id number] [place] [address] Sep, [facility] [place] [facility] [address] [id number] [place] [address] Sep, [facility] [place] [facility] [address] [id number] [place] [address] Aug, [facility] [place] [facility] [address] [id number] [place] [address] Aug, [facility] [place] [facility] [address] [id number] [place] [address] Aug, [facility] [place] [facility] [address] [id number] [place] [address] Aug, [facility] [place] [facility] [id number] [place] [address] Aug, [facility] [place] [facility] [address] [id number] [place] [address] Aug, [facility] [place] [facility] [address] [id number] [place] [address] Aug, [facility] [place] [facility] [address] [facility] [id number] [place] [address] 23 Aug, 2012 [facility] [place] [facility] [address] [facility] [id number] [place] [address] 22 Aug, 2012 [facility] [place] [facility] [address] [facility] [id number] [place] [address] 22 Aug, 2012 [facility] [place] [facility] [address] [id number] [place] [address] 18 Aug, 2012 [facility] [place] [facility] [address] [facility] [id number] [place] [address] 18 Aug, 2012 [facility] [place] [facility] [address] [id number] [place] [address] 18 Aug, 2012 [facility] [place] [facility] [address] [id number] [place] [address] 18 Aug, 2012 [facility] [place] [facility] [address] [id number] [place] [address] 17 Aug, 2012 [facility] [place] [facility] [address] [id number] [place] [address] 14 Aug, 2012 [facility] [place] [facility] [address] [id number] [place] [address] 14 Aug, 2013 [facility] [place] [facility] [address] [id number] [place] [address] 01 Aug, 2012 [facility] [place] [facility] [address] [id number] [place] [address] 20 Sep, 2012 [facility] [place] [facility] [address] [facility] [id number] [place] [address] 19 Sep, 2012 [facility] [place] [facility] [address] [facility] [id number] [place] [address] 18 Sep, 2012 [facility] [place] [facility] [address] [id number] [place] [address] 11 Sep, 2012 [facility] [place] [facility] [address] [id number] [place] [address] 11 Sep, 2012 [facility] [place] [facility] [address] [id number] [place] [address] Jun, [facility] [place] [facility] [address] [id number] [place] [address] Jun, [facility] [place] [facility] [address] [facility] [id number] [place] [address] Jun, [facility] [place] [facility] [address] [id number] [facility] [address] Jun, [facility] [place] [facility] [address] [facility] [id number] [place] [address] Jun, [facility] [place] [facility] [address] [facility] [id number] [place] [address] Jun, [facility] [place] [facility] [address] [facility] [id number] [place] [address] Jun, [facility] [place] [facility] [address] [id number] [place] [address] Jun, [facility] [place] [facility] [address] [id number] [place] [address] Jun, [facility] [place] [facility] [address] [facility] [id number] [facility] [address] Jun, [facility] [place] [facility] [address] [facility] [id number] [facility] [address] May, [facility] [place] [facility] [address] [id number] [place] [address] May, [facility] [place] [facility] [address] [id number] [place] [address] May, [facility] [place] [facility] [address] [facility] [id number] [place] [address] May, [facility] [place] [facility] [address] [id number] [place] [address] May, [facility] [place] [facility] [address] [facility] [id number] [place] [address] May, [facility] [place] [facility] [address] [id number] [place] [address] May, [facility] [place] [facility] [address] [id number] [place] [address] May, [facility] [place] [facility] [address] [facility] [id number] [place] [address] May, [facility] [place] [facility] [address] [id number] [place] [address] Apr, [facility] [place] [facility] [address] [id number] [place] [address] Apr, [facility] [place] [facility] [address] [id number] [place] [address] Apr, [facility] [place] [facility] [address] [id number] [place] [address] Apr, [facility] [place] [facility] [address] [id number] [place] [address] Apr, [facility] [place] [facility] [address] [id number] [place] [address] Apr, [facility] [place] [facility] [address] [id number] [place] [address] Apr, [facility] [place] [facility] [address] [id number] [place] [address] March, [facility] [place] [facility] [address] [id number] [place] [address] Feb, [facility] [place] [facility] [address] [id number] [place] [address] Feb, [facility] [place] [facility] [address] [id number] [place] [address] Feb, [facility] [place] [facility] [address] [id number] [place] [address] Jan, [facility] [place] [facility] [address] [id number] [place] [address] Jan, [facility] [place] [facility] [address] [id number] [place] [address] Jan, [facility] [place] [facility] [address] [id number] [place] [address] 14 Jan, 2013 [facility] [place] [facility] [address] [id number] [place] [address] 12 Jan, 2013 [facility] [address] [id number] [place] [address] 08 Jan, 2013 [facility] [place] [facility] [address] [id number] [place] [address] 07 Jan, 2013 [facility] [address] [id number] [place] [address] 04 Jan, 2013 [facility] [place] [facility] [address] [id number] [place] [address] 28 Dec, 2012 [facility] [address] [id number] [place] [address] 25 Dec, 2012 [facility] [place] [facility] [address] [id number] [place] [address] 13 Dec, 2012 [facility] [address] [id number] [place] [address] 11 Dec, 2012 [facility] [place] [facility] [address] [id number] [place] [address] 07 Dec, 2012 [facility] [place] [facility] [address] [id number] [place] [address] 06 Dec, 2012 [facility] [place] [facility] [address] [id number] [place] [address] 05 Dec, 2012 [facility] [place] [facility] [address] [id number] [place] [address] 31 Nov, 2012 [facility] [place] [facility] [address] [id number] [place] [address] 24 Nov, 2012 [facility] [place] [facility] [address] [id number] [place] [address] 18 Nov, 2012 [facility] [place] [facility] [address] [id number] [place] [address] 15 Nov, 2012 [facility] [place] [facility] [address] [id number] [place] [address] 10 Nov, 2012 [facility] [place] [facility] [address] [id number] [place] [address] Nov, [facility] [place] [facility] [address] [id number] [place] [address] Nov, [facility] [place] [facility] [address] [id number] [place] [address] Oct, [facility] [place] [facility] [address] [id number] [place] [address] Oct, [facility] [place] [facility] [address] [id number] [place] [address] Oct, [facility] [place] [facility] [address] [id number] [place] [address] Oct, [facility] [place] [facility] [address] [id number] [place] [address] Oct, [facility] [place] [facility] [address] [id number] [place] [address] Oct, [facility] [place] [facility] [address] [id number] [place] [address] Oct, [facility] [place] [facility] [address] [id number] [place] [address] Oct, [facility] [place] [facility] [address] [id number] [place] [address] Oct, [facility] [place] [facility] [address] [id number] [place] [address] Oct, [facility] [place] [facility] [address] [id number] [place] [address] Oct, [facility] [place] [facility] [address] [id number] [place] [address] Oct, [facility] [place] [facility] [id number] [place] [address] Sep, [facility] [place] [facility] [address] [id number] [place] [address] Sep, [facility] [place] [facility] [address] [id number] [place] [address] Sep, [facility] [place] [facility] [address] [id number] [place] [address] Sep, [facility] [place] [facility] [address] [id number] [place] [address] Sep, [facility] [facility] [address] [id number] [place] [address] Sep, [facility] [id number] [place] [address] Sep, [facility] [address] [id number] [place] [address] Sep, [facility] [address] [facility] [id number] [place] [address] Sep, [facility] [address] [id number] [place] [address] Sep, [facility] [id number] [place] [address] Sep, [facility] [id number] [place] [address] Aug, [facility] [address] [facility] [id number] [place] [address] Aug, [facility] [id number] [place] [address] Aug, [facility] [address] [facility] [id number] [place] [address] Aug, [facility] [address] [id number] [place] [address] Aug, [facility] [id number] [place] [address] Aug, [facility] [id number] [place] [address] Aug, [facility] [address] [facility] [id number] [place] [address] Aug, [facility] [address] [id number] [place] [address] Aug, [facility] [address] [facility] [id number] [place] [address] Aug, [facility] [address] [facility] [id number] [facility] [address] Jul, [facility] [address] [facility] [id number] [place] [address] Jul, [facility] [address] [id number] [place] [address] Jul, [facility] [address] [facility] [id number] [facility] [address] Jul, [facility] [address] [facility] [id number] [place] [address] Jun, [facility] [address] [facility] [id number] [place] [address] Jun, [facility] [address] [id number] [place] [address] Jun, [facility] [address] [id number] [place] [address] Jun, [facility] [address] [id number] [place] [address] Jun, [facility] [address] [facility] [id number] [place] [address] Jun, [facility] [address] [id number] [place] [address] Jun, [facility] [address] [facility] [id number] [place] [address] May, [facility] [address] [facility] [id number] [place] [address] May, [facility] [address] [facility] [id number] [place] [address] May, [facility] [address] [facility] [id number] [place] [address] May, [facility] [id number] [place] [address] May, [facility] [address] [id number] [place] [address] Apr, [facility] [address] [facility] [id number] [place] [address] Apr, [facility] [address] [facility] [id number] [place] [address] Apr, [facility] [address] [id number] [place] [address] Apr, [facility] [address] [id number] [place] [address] Apr, [facility] [address] [facility] [id number] [place] [address] March, [facility] [address] [facility] [id number] [place] [address] March, [facility] [address] [facility] [id number] [place] [address] March, [facility] [address] [facility] [id number] [place] [address] March, [facility] [address] [facility] [id number] [place] [address] March, [facility] [address] [id number] [place] [address] March, [facility] [address] [facility] [id number] [place] [address] March, [facility] [address] [id number] [place] [address] March, [facility] [address] [id number] [place] [address] March, [facility] [address] [facility] [id number] [place] [address] March, [facility] [address] [facility] [id number] [place] [address] Feb, [facility] [address] [facility] [id number] [place] [address] 27 Feb, 2012 [facility] [id number] [place] [address] Feb, [facility] [id number] [place] [address] Feb, [facility] [id number] [place] [address] Feb, [facility] [address] [facility] [id number] [place] [address] Feb, [facility] [id number] [place] [address] Feb, [facility] [id number] [place] [address] Feb, [facility] [address] [facility] [id number] [place] [address] Feb, [facility] [address] [facility] [id number] [place] [address] Jan, [facility] [address] [facility] [id number] [place] [address] Jan, [facility] [address] [id number] [place] [address] Jan, [facility] [address] [facility] [id number] [place] [address] Jan, [facility] [address] [id number] [place] [address] Dec, [facility] [address] [facility] [id number] [place] [address] Dec, [facility] [address] [id number] [place] [address] Nov, [facility] [address] [facility] [id number] [place] [address] Nov, [facility] [id number] [place] [address] Nov, [facility] [id number] [place] [address] Nov, [facility] [id number] [place] [address] Nov, [facility] [id number] [place] [address] Oct, [facility] [id number] [place] [address] Oct, [facility] [id number] [place] [address] Oct, [facility] [address] [address] Oct, [facility] [id number] [place] [address] Oct, [facility] [id number] [place] [address] Oct, [facility] [id number] [place] [address] Oct, [facility] [id number] [place] [address] Oct, [facility] [id number] [place] [address] Sep, IMMUNIZATIONS No Known Immunizations SOCIAL HISTORY Never Assessed REASON FOR VISIT PLAN OF CARE VITAL SIGNS Height 62 in 2014-03-11 Weight 192.8 lbs 2014-03-11 Temperature 97.6 degrees Fahrenheit 2014-03-11 Heart Rate 84 bpm 2014-03-11 Respiratory Rate 24 2014-03-11 Blood pressure systolic 180 mmHg 2014-03-11 Blood pressure diastolic 70 mmHg 2014-03-11 MEDICATIONS Unknown Medications RESULTS No Results PROCEDURES [...] History No Surgical history information Hospitalization History [facility]- Urosepsis, ab d pain and fever, discharged 11/27/2017 11/26/2017 Hospitalization History [facility]- Went Unrepsonsive, Hit head 2017 Hospitalization History [facility] [place]- Back Pain 8
--- OUTSIDE RECORDS SUMMARY | 2020-06-18 15:00 | XMS REPORT ---
Author Author Sanjuanita Abdul Doctor Organization [facility] Address Unknown Phone Unavailable Care Team Providers Care Control Center Operator Name Role Phone Migration, Doctor Unavailable Unavailable PROBLEMS Type Condition ICD9-CM Code [id number] Code Onset Dates Condition S tatus SNOMED Code Problem Coronary artery disease I25.10 Active 61957990 Problem Hypertension I10 Active 3325534 3 Problem Other chronic pain G89.29 Active 8 4117616 Problem Hyperlipidemia E78.5 Active 95751 004 Problem Type 2 diabetes mellitus wit hout complication, without long-term current use of insulin E11.9 Active 405784758 Problem Low back pain M54.5 Active 716842 009 Problem Pharyngeal dysphagia R13.13 Active 25921133633284 Problem Anxiety F41.9 Active 38680892 Problem Peripheral vascular disease I73.9 Ac tive 116518502 Problem Neurogenic bladder N31.9 Active 3 07215785 Problem Reactive depression F32.9 Active 69532042 Problem Microcytic anemia D50.9 Active 23 5091481 Problem Ventral hernia without obstruction or gangrene K43 .9 Active 523325584 Problem Insomnia G47.00 Active 186214456 Problem Paroxysmal atrial fibrillation I48.0 Active 527925662 Problem 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 [place] [address] Dec, Via [facility] [address] [place] [id number] Dec, Encounter for suprapubic catheter care Z 43.5 and Microcytic anemia D50.9 [place] [address] [facility] [place] [address] Dec, [place] [address] [facility] [place] [address] Nov, Anxiety F41.9 and Strain of right should er, subsequent encounter S46.911D [place] [address] [id number] [place] [address] 07 Nov, 2019 Hypertension I10 Via [facility] [address] [place] [id number] Nov, Pneumonia of both lungs due to infectiou s organism, unspecified part of lung J18.9 and Suprapubic catheter Z93.59 [place] [address] [id number] [place] [address] Nov, Hypertension I10 and Reactive depression F32.9 [place] [address] [id number] [place] [address] Oct, Strain of right shoulder, subsequent enc ounter S46.911D and Anxiety F41.9 [place] [address] [place] [id number] [place] [address] Oct, Via [facility] [address] [place] [id number] Oct, Suprapubic catheter Z93.59 and Candidias is, intertriginous B37.2 [place] [address] [id number] [place] [address] Oct, Suprapubic catheter Z93.59 [facility] [address] [id number] [place] [address] Oct, Anxiety F41.9 and Strain of right should er, subsequent encounter S46.911D [facility] [address] [id number] [place] [address] Sep, [facility] [address] [id number] [place] [address] Sep, [place] [address] [facility] [place] [address] Sep, Via [facility] [address] [place] [id number] Sep, Suprapubic catheter Z93.59 [place] [address] [place] [id number] [place] [address] Sep, Anxiety F41.9 and Strain of right should er, subsequent encounter S46.911D [place] [address] [place] [id number] [place] [address] Aug, [facility] [address] [place] [address] [id number] [place] [address] Aug, [place] [address] [place] [id number] [place] [address] Aug, Anxiety F41.9 and Strain of right should er, subsequent encounter S46.911D Via [facility] [address] [place] [id number] Aug, Suprapubic catheter Z93.59 [place] [address] [place] [id number] [place] [address] Jul, Strain of right shoulder, subsequent enc ounter S46.911D and Anxiety F41.9 [place] [address] [place] [id number] [place] [address] Jul, Anxiety F41.9 [place] [address] [place] [id number] [place] [address] Jun, [place] [address] [place] [id number] [place] [address] Jun, [place] [address] [place] [id number] [place] [address] Jun, [place] [address] [place] [id number] [place] [address] Jun, Strain of right shoulder, subsequent enc ounter S46.911D [place] [address] [place] [id number] [place] [address] Jun, Strain of right shoulder, subsequent enc ounter S46.911D [place] [address] [place] [id number] [place] [address] Jun, Anxiety F41.9 Via [facility] [address] [place] [id number] Jun, Neurogenic bladder N31.9 and Anxiety F41 .9 [facility] [address] [place] [id number] May, Anxiety F41.9 [place] [address] [address] May, Dysuria R30.0 [place] [address] [address] May, Strain of right shoulder, subsequent enc ounter S46.911D and Anxiety F41.9 [place] [address] [address] Apr, Via [facility] [address] [place] [id number] 18 Apr, 2019 Strain of right shoulder, subsequent enc ounter S46.911D [place] [address] [address] 14 Apr, 2019 Strain of right shoulder, subsequent enc ounter S46.911D and Anxiety F41.9 [facility] [address] [place] [id number] 13 Apr, 2019 Type 2 diabetes mellitus without complic ation, without long-term current use of insulin E11.9 and Neurogenic bladder N31.9 [facility] [address] [place] [address] Apr, Strain of right shoulder, subsequent enc ounter S46.911D ; History of GI bleed Z87.19 ; Neurogenic bladder N31.9 and Reactive depression F32.9 [place] [address] [address] 10 Apr, 2019 Acute pain of left shoulder M25.512 [place] [address] [address] 07 Apr, 2019 [place] [address] [address] Apr, Anxiety F41.9 and Other chronic pain G89 .29 Via [facility] [address] [place] [id number] March, Gastrointestinal hemorrhage associated w ith acute gastritis K29.01 [facility] [address] [address] March, [facility] [address] [place] [address] March, Bronchitis J40 [facility] [address] [address] March, Cough R05 [facility] [address] [address] March, Other chronic pain G89.29 [place] [address] [address] March, Anxiety F41.9 [place] [address] [address] March, [facility] [address] [address] Feb, Other chronic pain G89.29 [facility] [address] [address] Feb, Anxiety F41.9 [facility] [address] [address] Feb, Other chronic pain G89.29 [facility] [address] [place] [id number] Feb, Neurogenic bladder N31.9 and Suprapubic catheter Z93.59 [facility] [address] [address] Jan, Anxiety F41.9 [facility] [address] [address] Dec, Anxiety F41.9 [facility] [address] [address] Dec, Other chronic pain G89.29 and Anxiety F4 1.9 [facility] [address] [facility] [place] [address] 15 Dec, 2018 Via [facility] [address] [place] [address] Dec, Neurogenic bladder N31.9 and Suprapubic catheter Z93.59 [facility] [address] [place] [id number] [place] [address] Nov, Other chronic pain G89.29 and Anxiety F4 1.9 [facility] [address] [address] Nov, Via [facility] [address] [place] [address] Nov, Suprapubic catheter Z93.59 [facility] [address] [address] Oct, Other chronic pain G89.29 and Anxiety F4 1.9 [facility] [address] [address] Oct, [facility] [address] [address] Oct, Suprapubic catheter Z93.59 [facility] [address] [address] Oct, Via [facility] [address] [place] [address] Oct, [facility] [address] [address] Oct, Anxiety F41.9 [place] [address] [address] Oct, Anxiety F41.9 Via [facility] [address] [place] [address] Oct, Other chronic pain G89.29 [facility] [address] [address] Sep, Other chronic pain G89.29 [facility] [address] [place] [address] Sep, Suprapubic catheter Z93.59 and Cervicalg ia M54.2 [facility] [address] [address] Sep, [facility] [address] [address] Sep, [facility] [address] [address] Sep, Via [facility] [address] [place] [address] Aug, Cystitis N30.90 [place] [address] [address] Aug, [place] [address] [address] Aug, Other chronic pain G89.29 [place] [address] [address] Aug, Via [facility] [address] [place] [id number] Aug, Encounter for suprapubic catheter care Z 43.5 [place] [address] [address] Jul, Via [facility] [address] [place] [address] Jul, [place] [address] [address] Jul, Other chronic pain G89.29 [facility] [address] [address] Jul, [place] [address] [address] Jul, Via [facility] [address] [place] [id number] Jun, Postmenopausal atrophic vaginitis N95.2 [place] [address] [address] Jun, Other chronic pain G89.29 [facility] [address] [address] Jun, Via [facility] [address] [place] [id number] May, Anxiety F41.9 ; Type 2 diabetes mellitus without complication, without long-term current use of insulin E11.9 ; Hypertension I10 ; Low back pain M54.5 ; Paroxysmal atrial fibrillation I48.0 and 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 [facility] [address] [address] May, Other chronic pain G89.29 Via [facility] [address] [place] [id number] May, Low back pain M54.5 [place] [address] [address] May, [place] [address] [address] Apr, Other chronic pain G89.29 [place] [address] [address] Apr, [place] [address] [address] Apr, Via [facility] [address] [place] [address] Apr, Closed compression fracture of L3 lumbar vertebra with routine healing, subsequent encounter S32.030D [facility] [address] [place] [address] Apr, Low back pain M54.5 [facility] [address] [place] [address] Apr, Coccydynia M53.3 [place] [address] [address] March, [place] [address] [address] March, Other chronic pain G89.29 [facility] [address] [place] [address] [place] [address] March, [facility] [address] [address] March, [facility] [address] [address] Feb, [facility] [address] [address] Feb, Other chronic pain G89.29 [facility] [address] [place] [id number] Feb, Other chronic pain G89.29 and Anxiety F4 1.9 [place] [address] [address] Feb, [facility] [address] [address] Jan, [facility] [address] [address] Jan, [facility] [address] [address] Jan, [facility] [address] [address] Jan, [facility] [address] [address] Dec, Via [facility] [address] [place] [id number] Dec, Peripheral vascular disease I73.9 ; 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 ; Other chronic pain G89.29 ; Anxiety F41.9 ; Reactive depression F32.9 ; Insomnia G47.00 and Type 2 diabetes mellitus without complication, without long-term current use of insulin E11.9 [facility] [place] [address] [id number] [address] Nov, [facility] [address] [id number] [place] [id number] Nov, Anxiety F41.9 [facility] [address] [address] Nov, [place] [address] [id number] [place] [id number] Nov, Anxiety F41.9 [facility] [address] [place] [address] Nov, Status post surgery Z98.890 ; Confused R 41.0 ; Anxiety F41.9 and Other chronic pain G89.29 [place] [address] [id number] [place] [id number] Nov, Other chronic pain G89.29 [place] [address] [address] Oct, [place] [address] [id number] [place] [id number] Oct, Other chronic pain G89.29 [place] [address] [address] Oct, Anxiety F41.9 [place] [address] [id number] [place] [address] Sep, Other chronic pain G89.29 [place] [address] [id number] [place] [id number] Sep, [facility] [address] [place] [address] Aug, Dysuria R30.0 and Anxiety F41.9 [place] [address] [address] Aug, [place] [address] [id number] [place] [id number] Aug, Other chronic pain G89.29 [place] [address] [address] Jul, Other chronic pain G89.29 [facility] [address] [id number] [place] [id number] Jun, [facility] [address] [id number] [place] [address] Jun, Other chronic pain G89.29 [facility] [address] [place] [address] [place] [address] Jun, [facility] [address] [address] May, Other chronic pain G89.29 [facility] [address] [address] Apr, Other chronic pain G89.29 [facility] [address] [place] [address] Apr, Reactive depression F32.9 and Pharyngeal dysphagia R13.13 [place] [address] [address] Apr, Urinary tract infection without hematuri a, site unspecified N39.0 [facility] [address] [address] March, Other chronic pain G89.29 [facility] [address] [place] [address] [place] [address] Feb, Other chronic pain G89.29 [facility] [address] [place] [address] [place] [address] Feb, [facility] [address] [id number] [place] [id number] Feb, Via [facility] [address] [place] [address] Feb, Dysuria R30.0 and Ventral hernia without obstruction or gangrene K43.9 [facility] [address] [place] [id number] [place] [address] Jan, Other chronic pain G89.29 [facility] [address] [id number] [place] [address] Dec, Other chronic pain G89.29 [facility] [address] [address] Nov, Other chronic pain G89.29 [facility] [address] [place] [address] Nov, Lymphadenitis I88.9 [facility] [address] [address] Nov, Other chronic pain G89.29 [facility] [address] [address] Nov, [facility] [address] [id number] [place] [address] Nov, Other chronic pain G89.29 [facility] [address] [place] [address] Oct, Low back pain M54.5 ; Hypertension I10 a nd Type 2 diabetes mellitus without complication, without long-term current use of insulin E11.9 [facility] [address] [address] Oct, [facility] [address] [address] Oct, [facility] [address] [address] Oct, [facility] [address] [address] Oct, [facility] [address] [address] Sep, [facility] [address] [address] Sep, [facility] [address] [address] Aug, Other chronic pain G89.29 [facility] [address] [address] Jul, [facility] [address] [place] [address] Jul, [facility] [address] [address] Jul, [facility] [address] [place] [address] Jun, [facility] [address] [address] Jun, [facility] [address] [place] [address] Jun, Low back pain M54.5 ; Other chronic pain G89.29 and Coronary artery disease I25.10 [facility] [address] [place] [address] Jun, [facility] [address] [address] May, [facility] [address] [address] May, [facility] [address] [address] May, Other chronic pain G89.29 [facility] [address] [address] May, [facility] [address] [address] Apr, [facility] [address] [address] 17 Apr, 2016 Acute cystitis without hematuria N30.00 [facility] [address] [address] 16 Apr, 2016 Acute cystitis without hematuria N30.00 ; Coronary artery disease I25.10 ; Low back pain M54.5 and Other chronic pain G89.29 [facility] [address] [place] [address] Apr, Other chronic pain G89.29 [facility] [id number] [place] [address] March, Other chronic pain G89.29 [facility] [address] [place] [address] 18 Feb, 2016 [facility] [id number] [place] [address] 15 Feb, 2016 Arthritis M19.90 [facility] [address] [place] [address] Feb, [facility] [address] [place] [address] 30 Jan, 2016 [facility] [address] [address] Jan, [facility] [address] [address] Jan, Other chronic pain G89.29 [facility] [address] [place] [address] Jan, Hypertension I10 ; Coronary artery disea se I25.10 and Insomnia G47.00 [facility] [address] [place] [address] Jan, [facility] [address] [place] [address] Dec, Right hip pain M25.551 [facility] [address] [place] [address] Dec, [facility] [address] [place] [address] Dec, [facility] [address] [address] Dec, [facility] [address] [place] [address] Dec, Other chronic pain G89.29 [facility] [address] [place] [address] Dec, [facility] [address] [address] Nov, [facility] [address] [address] Nov, Other chronic pain G89.29 [facility] [address] [address] Nov, Right hip pain M25.551 and Coronary karissa ry disease I25.10 [facility] [address] [address] Nov, Other chronic pain G89.29 [facility] [address] [address] Oct, [facility] [address] [address] Oct, [facility] [address] [address] Sep, [facility] [address] [address] Sep, [facility] [address] [address] Aug, [facility] [address] [address] Aug, Hypertension I10 ; Coronary artery disea se I25.10 and Arthritis M19.90 [facility] [address] [address] Jun, [facility] [address] [address] Jun, Essential hypertension, benign 401.1 ; O ther chronic pain 338.29 and Chronic airway obstruction, not elsewhere classified 496 [facility] [address] [address] Jun, [facility] [address] [address] Jun, [facility] [address] [facility] [id number] [place] [address] Jun, [facility] [address] [id number] [place] [address] May, [facility] [address] [id number] [place] [address] May, [facility] [address] [id number] [place] [address] Apr, [facility] [address] [facility] [id number] [place] [address] Apr, [facility] [address] [id number] [place] [address] Apr, [facility] [address] [id number] [place] [address] March, [facility] [address] [id number] [place] [address] March, [facility] [address] [id number] [place] [address] March, [facility] [address] [id number] [place] [address] March, [facility] [address] [id number] [place] [address] March, Sialadenitis 527.2 [facility] [address] [id number] [place] [address] Feb[facility] [address] [id number] [place] [address] Feb, [facility] [address] [id number] [place] [address] Feb, [facility] [address] [id number] [place] [address] 14 Feb[facility] 2015 [facility] [address] [id number] [place] [address] Feb, [facility] [address] [id number] [place] [address] Jan, [facility] [address] [facility] [id number] [place] [address] Jan, [facility] [address] [id number] [place] [address] Jan, [facility] [address] [id number] [place] [address] Jan, [facility] [address] [id number] [place] [address] Jan, [facility] [place] [facility] [address] [id number] [place] [address] Jan, [facility] [place] [facility] [address] [id number] [place] [address] Dec, [facility] [place] [facility] [address] [id number] [place] [address] Dec, [facility] [place] [facility] [address] [id number] [place] [address] Dec, [facility] [place] [facility] [address] [id number] [place] [address] Dec, [facility] [place] [facility] [address] [id number] [place] [address] Dec, [facility] [place] [facility] [address] [id number] [place] [address] Dec, [facility] [place] [facility] [address] [id number] [place] [address] Nov, [facility] [place] [facility] [address] [id number] [place] [address] Nov, [facility] [place] [facility] [address] [id number] [place] [address] Nov, [facility] [place] [facility] [address] [id number] [place] [address] Nov, [facility] [place] [facility] [address] [id number] [place] [address] Nov, [facility] [address] [id number] [place] [address] Nov, [facility] [place] [facility] [address] [id number] [place] [address] Nov, [facility] [place] [facility] [address] [id number] [place] [address] Nov, [facility] [place] [facility] [address] [id number] [place] [address] Nov, [facility] [place] [facility] [address] [id number] [place] [address] Nov, [facility] [place] [facility] [address] [id number] [place] [address] Nov, [facility] [place] [facility] [address] [id number] [place] [address] Nov, [facility] [place] [facility] [address] [id number] [place] [address] Nov, [facility] [place] [facility] [address] [id number] [place] [address] Nov, [facility] [place] [facility] [address] [id number] [place] [address] Oct, [facility] [place] [facility] [address] [id number] [place] [address] Oct, [facility] [place] [facility] [address] [id number] [place] [address] Oct, [facility] [place] [facility] [address] [id number] [place] [address] Oct, [facility] [place] [facility] [address] [id number] [place] [address] 18 Oct, 2014 [facility] [place] [facility] [address] [id number] [place] [address] Oct, [facility] [place] [facility] [address] [id number] [place] [address] Oct, [facility] [place] [facility] [address] [id number] [place] [address] Oct, [facility] [place] [facility] [address] [id number] [place] [address] Oct, [facility] [place] [facility] [address] [id number] [place] [address] Sep, [facility] [place] [facility] [address] [id number] [place] [address] Sep, [facility] [place] [facility] [address] [id number] [place] [address] Sep, [facility] [place] [facility] [address] [id number] [place] [address] Sep, [facility] [place] [facility] [address] [id number] [place] [address] Sep, [facility] [place] [facility] [address] [id number] [place] [address] Sep, [facility] [place] [facility] [address] [id number] [place] [address] Sep, [facility] [place] [facility] [address] [id number] [place] [address] Sep, [facility] [place] [facility] [address] [id number] [place] [address] Sep, [facility] [place] [facility] [address] [id number] [place] [address] Sep, [facility] [place] [facility] [address] [id number] [place] [address] Sep, [facility] [place] [facility] [address] [id number] [place] [address] Sep, [facility] [place] [facility] [address] [id number] [place] [address] Aug, [facility] [place] [facility] [address] [id number] [place] [address] Aug, [facility] [place] [facility] [address] [id number] [place] [address] Aug, [facility] [place] [facility] [address] [id number] [place] [address] 29 Aug, 2014 [facility] [place] [facility] [address] [id number] [place] [address] 28 Aug, 2014 [facility] [place] [facility] [address] [id number] [place] [address] 28 Aug, 2014 [facility] [place] [facility] [address] [id number] [place] [address] Aug, [facility] [place] [facility] [address] [id number] [place] [address] 17 Aug, 2014 [facility] [place] [facility] [address] [id number] [place] [address] 30 Jul, 2013 [facility] [place] [facility] [address] [id number] [place] [address] 30 Jul, 2013 [facility] [place] [facility] [address] [id number] [place] [address] 30 Jul, 2013 [facility] [place] [facility] [address] [id number] [place] [address] 30 Jul, 2013 [facility] [place] [facility] [address] [id number] [place] [address] 25 Jul, 2014 [facility] [place] [facility] [address] [id number] [place] [address] 25 Jul, 2013 [facility] [place] [facility] [address] [id number] [place] [address] 15 Jul, 2013 [facility] [place] [facility] [address] [id number] [place] [address] 15 Jul, 2013 [facility] [place] [facility] [address] [id number] [place] [address] 11 Jul, 2013 [facility] [place] [facility] [address] [id number] [place] [address] Jul, 2013 [facility] [place] [facility] [address] [id number] [place] [address] Jun, [facility] [place] [facility] [address] [id number] [place] [address] Jun, [facility] [place] [facility] [address] [id number] [place] [address] Jun, [facility] [place] [facility] [address] [facility] [id number] [facility] [place] [address] Jun, [facility] [place] [facility] [address] [facility] [id number] [place] [address] Jun, [facility] [place] [facility] [address] [id number] [facility] [address] Jun, [facility] [place] [facility] [address] [facility] [id number] [facility] [address] Jun, [facility] [place] [facility] [address] [id number] [place] [address] Jun, [facility] [place] [facility] [address] [id number] [place] [address] Jun, [facility] [place] [facility] [address] [id number] [place] [address] Jun, [facility] [place] [facility] [address] [facility] [id number] [place] [address] Jun, [facility] [place] [facility] [address] [id number] [place] [address] Jun, [facility] [place] [facility] [address] [id number] [place] [address] Jun, [facility] [place] [facility] [address] [id number] [place] [address] Jun, [facility] [place] [facility] [address] [facility] [id number] [place] [address] Jun, [facility] [place] [facility] [address] [id number] [place] [address] Jun, [facility] [place] [facility] [address] [facility] [id number] [place] [address] Jun, [facility] [place] [facility] [address] [id number] [place] [address] Jun, [facility] [place] [facility] [address] [id number] [place] [address] Jun, [facility] [place] [facility] [address] [id number] [place] [address] Jun, [facility] [place] [facility] [address] [facility] [id number] [facility] [address] Jun, [facility] [place] [facility] [address] [facility] [id number] [facility] [address] Jun, [facility] [place] [facility] [address] [facility] [id number] [facility] [address] May, [facility] [place] [facility] [address] [facility] [id number] [place] [address] May, [facility] [place] [facility] [address] [facility] [id number] [place] [address] May, [facility] [place] [facility] [address] [id number] [facility] [place] [address] May, [facility] [place] [facility] [address] [id number] [facility] [place] [address] May, [facility] [place] [facility] [address] [facility] [id number] [facility] [place] [address] May, [facility] [place] [facility] [address] [facility] [id number] [facility] [address] May, 2013 [facility] [place] [facility] [address] [facility] [id number] [place] [address] May, 2013 [facility] [place] [facility] [address] [id number] [facility] [place] [address] May, 2013 [facility] [place] [facility] [address] [facility] [id number] [facility] [place] [address] May, [facility] [place] [facility] [address] [id number] [facility] [place] [address] May, [facility] [place] [facility] [address] [facility] [id number] [facility] [address] May, [facility] [place] [facility] [address] [id number] [facility] [place] [address] May, [facility] [place] [facility] [address] [facility] [id number] [facility] [address] Apr, [facility] [place] [facility] [address] [facility] [id number] [place] [address] Apr, [facility] [place] [facility] [address] [facility] [id number] [place] [address] Apr, [facility] [place] [facility] [address] [id number] [place] [address] Apr, [facility] [place] [facility] [address] [facility] [id number] [place] [address] Apr, [facility] [place] [facility] [address] [facility] [id number] [place] [address] Apr, [facility] [place] [facility] [address] [id number] [place] [address] Apr, [facility] [place] [facility] [address] [id number] [place] [address] Apr, [facility] [place] [facility] [address] [id number] [place] [address] Apr, [facility] [place] [facility] [address] [id number] [place] [address] March, [facility] [place] [facility] [address] [id number] [place] [address] March, [facility] [place] [facility] [address] [id number] [place] [address] March, [facility] [place] [facility] [address] [id number] [place] [address] March, [facility] [place] [facility] [address] [facility] [id number] [place] [address] March, [facility] [place] [facility] [address] [id number] [place] [address] March, [facility] [place] [facility] [address] [id number] [place] [address] March, [facility] [place] [facility] [address] [id number] [place] [address] March, [facility] [place] [facility] [address] [id number] [place] [address] March, [facility] [place] [facility] [address] [id number] [place] [address] March, [facility] [place] [facility] [address] [id number] [place] [address] March, [facility] [place] [facility] [address] [id number] [place] [address] March, [facility] [place] [facility] [address] [id number] [place] [address] March, [facility] [place] [facility] [address] [id number] [place] [address] March, [facility] [place] [facility] [address] [id number] [place] [address] March, [facility] [place] [facility] [address] [id number] [place] [address] March, [facility] [place] [facility] [address] [id number] [place] [address] March, [facility] [place] [facility] [address] [id number] [place] [address] March, [facility] [place] [facility] [address] [id number] [place] [address] March, [facility] [place] [facility] [address] [id number] [place] [address] March, [facility] [place] [facility] [address] [id number] [place] [address] Feb, [facility] [place] [facility] [address] [id number] [place] [address] Feb, [facility] [place] [facility] [address] [id number] [place] [address] Feb, [facility] [place] [facility] [address] [id number] [place] [address] Feb, [facility] [place] [facility] [address] [id number] [place] [address] Feb, [facility] [place] [facility] [address] [facility] [id number] [facility] [place] [address] Feb, [facility] [place] [facility] [address] [facility] [id number] [place] [address] Feb, [facility] [place] [facility] [address] [id number] [place] [address] Feb, [facility] [place] [facility] [address] [id number] [place] [address] Jan, [facility] [place] [facility] [address] [facility] [id number] [place] [address] Jan, [facility] [place] [facility] [address] [id number] [place] [address] Jan, [facility] [place] [facility] [address] [id number] [place] [address] Jan, [facility] [place] [facility] [address] [id number] [place] [address] Jan, [facility] [place] [facility] [address] [id number] [place] [address] Jan, [facility] [place] [facility] [address] [id number] [place] [address] Jan, [facility] [place] [facility] [address] [id number] [place] [address] Jan, [facility] [place] [facility] [address] [id number] [place] [address] Jan, [facility] [place] [facility] [address] [facility] [id number] [place] [address] Jan, [facility] [place] [facility] [address] [id number] [place] [address] Dec, [facility] [place] [facility] [address] [id number] [place] [address] Dec, [facility] [place] [facility] [address] [id number] [place] [address] Dec, [facility] [place] [facility] [address] [id number] [place] [address] Dec, [facility] [place] [facility] [address] [id number] [place] [address] Dec, [facility] [place] [facility] [address] [id number] [place] [address] Dec, [facility] [place] [facility] [address] [id number] [place] [address] Dec, [facility] [place] [facility] [address] [id number] [place] [address] Dec, [facility] [place] [facility] [address] [id number] [place] [address] Nov, [facility] [place] [facility] [address] [id number] [place] [address] Nov, [facility] [place] [facility] [address] [id number] [place] [address] Nov, [facility] [place] [facility] [address] [id number] [place] [address] Nov, [facility] [address] [id number] [place] [address] Nov, [facility] [address] [id number] [place] [address] Nov, [facility] [address] [id number] [place] [address] Nov, [facility] [address] [id number] [place] [address] Nov, [facility] [address] [id number] [place] [address] Nov, [facility] [address] [id number] [place] [address] Nov, [facility] [address] [id number] [place] [address] Nov, [facility] [address] [id number] [place] [address] Nov, [facility] [address] [id number] [place] [address] Nov, [facility] [address] [id number] [place] [address] Oct, [facility] [address] [id number] [place] [address] Oct, [facility] [address] [id number] [place] [address] Oct, [facility] [address] [id number] [place] [address] Oct, [facility] [address] [id number] [place] [address] Oct, [facility] [address] [id number] [place] [address] Oct, [facility] [address] [id number] [place] [address] Oct, [facility] [address] [id number] [place] [address] Oct, [facility] [address] [id number] [place] [address] Oct, [facility] [address] [id number] [place] [address] Oct, [facility] [address] [id number] [place] [address] Oct, [facility] [address] [id number] [place] [address] Oct, [facility] [address] [id number] [place] [address] Oct, [facility] [address] [id number] [place] [address] Oct, [facility] [address] [id number] [place] [address] 14 Sep, 2013 [facility] [address] [id number] [place] [address] Sep, [facility] [address] [id number] [place] [address] Sep, [facility] [address] [id number] [place] [address] Sep, [facility] [address] [id number] [place] [address] Sep, [facility] [address] [id number] [place] [address] Sep, [facility] [address] [id number] [place] [address] Sep, [facility] [address] [id number] [place] [address] Sep, [facility] [address] [id number] [place] [address] Sep, [facility] [address] [id number] [place] [address] Sep, [facility] [address] [id number] [place] [address] Aug, [facility] [address] [id number] [place] [address] Aug, [facility] [address] [id number] [place] [address] Aug, [facility] [address] [id number] [place] [address] Aug, [facility] [address] [id number] [place] [address] Aug, [facility] [address] [id number] [place] [address] Aug, [facility] [address] [id number] [place] [address] Aug, [facility] [address] [id number] [place] [address] Aug, [facility] [address] [id number] [place] [address] 22 Aug, 2012 [facility] [address] [id number] [place] [address] 22 Aug, 2012 [facility] [address] [id number] [place] [address] 18 Aug, 2012 [facility] [place] [facility] [address] [id number] [place] [address] 18 Aug, 2012 [facility] [place] [facility] [address] [id number] [place] [address] 18 Aug, 2012 [facility] [place] [facility] [address] [id number] [place] [address] 18 Aug, 2012 [facility] [place] [facility] [address] [id number] [place] [address] 17 Aug, 2012 [facility] [place] [facility] [address] [id number] [place] [address] 14 Aug, 2012 [facility] [place] [facility] [address] [id number] [place] [address] 14 Aug, 2013 [facility] [place] [facility] [address] [id number] [place] [address] 01 Aug, 2013 [facility] [place] [facility] [address] [id number] [place] [address] 20 Jul, 2012 [facility] [place] [facility] [address] [id number] [place] [address] 19 Jul, 2012 [facility] [place] [facility] [address] [id number] [place] [address] 18 Jul, 2012 [facility] [place] [facility] [address] [id number] [place] [address] 11 Jul, 2012 [facility] [place] [facility] [address] [id number] [place] [address] 11 Jul, 2012 [facility] [place] [facility] [address] [id number] [place] [address] 28 Jun, 2012 [facility] [place] [facility] [address] [id number] [facility] [place] [address] Jun, [facility] [place] [facility] [address] [id number] [place] [address] Jun, [facility] [place] [facility] [address] [facility] [id number] [place] [address] Jun, [facility] [place] [facility] [address] [id number] [facility] [place] [address] Jun, [facility] [place] [facility] [address] [facility] [id number] [place] [address] Jun, [facility] [place] [facility] [address] [facility] [id number] [place] [address] Jun, [facility] [place] [facility] [address] [id number] [place] [address] Jun, [facility] [place] [facility] [address] [id number] [facility] [place] [address] Jun, [facility] [place] [facility] [address] [id number] [facility] [place] [address] Jun, [facility] [place] [facility] [address] [facility] [id number] [facility] [address] May, [facility] [place] [facility] [address] [id number] [facility] [place] [address] May, [facility] [place] [facility] [address] [id number] [facility] [place] [address] May, [facility] [place] [facility] [address] [id number] [facility] [place] [address] May, [facility] [place] [facility] [address] [facility] [id number] [facility] [place] [address] May, [facility] [place] [facility] [address] [id number] [facility] [place] [address] 16 May, 2013 [facility] [place] [facility] [address] [facility] [id number] [facility] [address] May, [facility] [place] [facility] [address] [id number] [facility] [place] [address] May, [facility] [place] [facility] [address] [id number] [facility] [place] [address] May, [facility] [place] [facility] [address] [id number] [place] [address] Apr, [facility] [place] [facility] [address] [facility] [id number] [place] [address] Apr, [facility] [place] [facility] [address] [id number] [place] [address] Apr, [facility] [place] [facility] [address] [facility] [id number] [facility] [place] [address] Apr, [facility] [place] [facility] [address] [facility] [id number] [place] [address] Apr, [facility] [place] [facility] [address] [id number] [place] [address] Apr, [facility] [place] [facility] [address] [id number] [place] [address] Apr, [facility] [place] [facility] [address] [id number] [place] [address] March, [facility] [place] [facility] [address] [facility] [id number] [place] [address] Feb, [facility] [place] [facility] [address] [id number] [place] [address] Feb, [facility] [place] [facility] [address] [id number] [place] [address] Feb, [facility] [place] [facility] [address] [id number] [place] [address] Jan, [facility] [place] [facility] [address] [facility] [id number] [place] [address] Jan, [facility] [place] [facility] [address] [id number] [place] [address] 19 Jan, 2013 [facility] [place] [facility] [address] [id number] [place] [address] 14 Jan, 2013 [facility] [place] [facility] [address] [id number] [place] [address] Jan, [facility] [address] [facility] [id number] [facility] [place] [address] 08 Jan, 2013 [facility] [place] [facility] [address] [facility] [id number] [facility] [place] [address] 07 Jan, 2013 [facility] [place] [facility] [address] [facility] [id number] [facility] [place] [address] 04 Jan, 2013 [facility] [place] [facility] [address] [id number] [facility] [place] [address] 28 Dec, 2012 [facility] [place] [facility] [address] [facility] [id number] [facility] [place] [address] 25 Dec, 2012 [facility] [place] [facility] [address] [id number] [facility] [place] [address] 13 Dec, 2012 [facility] [place] [facility] [address] [id number] [place] [address] Dec, [facility] [place] [facility] [address] [id number] [place] [address] 07 Dec, 2012 [facility] [place] [facility] [address] [id number] [place] [address] 06 Dec, 2012 [facility] [place] [facility] [address] [id number] [place] [address] 05 Dec, 2012 [facility] [place] [facility] [address] [id number] [place] [address] Nov, [facility] [place] [facility] [address] [id number] [place] [address] 24 Nov, 2012 [facility] [place] [facility] [address] [id number] [place] [address] 18 Nov, 2012 [facility] [place] [facility] [address] [id number] [place] [address] 15 Nov, 2012 [facility] [place] [facility] [address] [id number] [place] [address] Nov, [facility] [place] [facility] [address] [id number] [place] [address] Nov, [facility] [place] [facility] [address] [id number] [place] [address] Nov, [facility] [place] [facility] [address] [id number] [place] [address] Oct, [facility] [place] [facility] [address] [id number] [place] [address] Oct, [facility] [place] [facility] [address] [id number] [place] [address] Oct, [facility] [place] [facility] [address] [id number] [place] [address] Oct, [facility] [place] [facility] [address] [id number] [place] [address] Oct, [facility] [place] [facility] [address] [id number] [place] [address] Oct, [facility] [place] [facility] [address] [id number] [place] [address] Oct, [facility] [place] [facility] [address] [id number] [place] [address] Oct, [facility] [place] [facility] [address] [id number] [place] [address] Oct, [facility] [place] [facility] [address] [id number] [place] [address] Oct, [facility] [place] [facility] [address] [id number] [place] [address] Oct, [facility] [place] [facility] [address] [id number] [place] [address] Oct, [facility] [place] [facility] [address] [id number] [place] [address] Sep, [facility] [place] [facility] [id number] [place] [address] Sep, [facility] [place] [facility] [address] [id number] [place] [address] Sep, [facility] [place] [facility] [address] [id number] [place] [address] Sep, [facility] [place] [facility] [address] [id number] [place] [address] Sep, [facility] [place] [facility] [address] [id number] [place] [address] Sep, [facility] [place] [facility] [address] [id number] [place] [address] Sep, [facility] [place] [facility] [address] [id number] [place] [address] Sep, [facility] [place] [facility] [address] [id number] [place] [address] Sep, [facility] [place] [facility] [address] [id number] [place] [address] Sep, [facility] [place] [facility] [address] [id number] [place] [address] Sep, [facility] [place] [facility] [address] [id number] [place] [address] Aug, [facility] [place] [facility] [address] [id number] [place] [address] Aug, [facility] [place] [facility] [address] [id number] [place] [address] Aug, [facility] [place] [facility] [address] [id number] [place] [address] Aug, [facility] [place] [facility] [address] [id number] [place] [address] Aug, [facility] [place] [facility] [address] [id number] [place] [address] Aug, [facility] [place] [facility] [address] [id number] [place] [address] Aug, [facility] [place] [facility] [address] [id number] [place] [address] Aug, [facility] [place] [facility] [address] [id number] [place] [address] Aug, [facility] [place] [facility] [address] [id number] [place] [address] Aug, [facility] [place] [facility] [address] [id number] [facility] [place] [address] Jul, [facility] [place] [facility] [address] [facility] [id number] [facility] [place] [address] Jul, [facility] [place] [facility] [address] [id number] [facility] [place] [address] Jul, [facility] [place] [facility] [address] [id number] [facility] [place] [address] Jul, [facility] [place] [facility] [address] [facility] [id number] [facility] [place] [address] Jun, [facility] [place] [facility] [address] [id number] [facility] [place] [address] Jun, [facility] [place] [facility] [address] [id number] [place] [address] Jun, [facility] [place] [facility] [address] [id number] [facility] [place] [address] Jun, [facility] [place] [facility] [address] [id number] [place] [address] Jun, [facility] [place] [facility] [address] [id number] [facility] [place] [address] Jun, [facility] [place] [facility] [address] [id number] [place] [address] Jun, [facility] [place] [facility] [address] [id number] [place] [address] May, [facility] [place] [facility] [address] [id number] [place] [address] May, [facility] [place] [facility] [address] [id number] [place] [address] May, [facility] [place] [facility] [address] [id number] [place] [address] May, [facility] [place] [facility] [address] [id number] [place] [address] May, [facility] [place] [facility] [address] [id number] [place] [address] Apr, [facility] [place] [facility] [address] [id number] [place] [address] Apr, [facility] [place] [facility] [address] [id number] [place] [address] Apr, [facility] [place] [facility] [address] [id number] [place] [address] Apr, [facility] [place] [facility] [address] [id number] [place] [address] Apr, [facility] [place] [facility] [address] [id number] [place] [address] March, [facility] [place] [facility] [address] [id number] [place] [address] March, [facility] [place] [facility] [address] [id number] [place] [address] March, [facility] [place] [facility] [address] [id number] [place] [address] March, [facility] [place] [facility] [address] [id number] [place] [address] March, [facility] [place] [facility] [address] [id number] [place] [address] March, [facility] [place] [facility] [address] [id number] [place] [address] March, [facility] [place] [facility] [address] [id number] [place] [address] March, [facility] [place] [facility] [address] [id number] [place] [address] March, [facility] [place] [facility] [address] [id number] [place] [address] March, [facility] [place] [facility] [address] [id number] [place] [address] Feb, [facility] [place] [facility] [address] [id number] [place] [address] Feb, [facility] [place] [facility] [address] [id number] [place] [address] Feb, [facility] [place] [facility] [address] [id number] [place] [address] Feb, [facility] [place] [facility] [address] [id number] [place] [address] Feb, [facility] [place] [facility] [address] [id number] [place] [address] Feb, [facility] [place] [facility] [address] [id number] [place] [address] Feb, [facility] [place] [facility] [address] [id number] [place] [address] Feb, [facility] [place] [facility] [address] [id number] [place] [address] Feb, [facility] [place] [facility] [address] [id number] [place] [address] Jan, [facility] [place] [facility] [address] [id number] [place] [address] Jan, [facility] [place] [facility] [address] [id number] [place] [address] Jan, [facility] [place] [facility] [address] [id number] [place] [address] Jan, [facility] [place] [facility] [address] [id number] [place] [address] Dec, [facility] [place] [facility] [address] [id number] [place] [address] Dec, [facility] [place] [facility] [address] [id number] [place] [address] Nov, [facility] [place] [facility] [address] [id number] [place] [address] Nov, [facility] [place] [facility] [address] [id number] [place] [address] Nov, [facility] [place] [facility] [address] [id number] [place] [address] Nov, [facility] [id number] [place] [address] Nov, [facility] [id number] [place] [address] Oct, [facility] [id number] [place] [address] Oct, [facility] [address] [address] Oct, [facility] [address] [address] Oct, [facility] [address] [address] Oct, [facility] [id number] [place] [address] Oct, [facility] [address] [address] Oct, [facility] [address] [id number] [place] [address] Oct, [facility] [address] [id number] [place] [address] Sep, IMMUNIZATIONS No Known Immunizations SOCIAL HISTORY [...] Hospitalization History [facility]- Urosepsis, ab d pain and fever, discharged 11/27/2017 11/26/2017 Hospitalization History [facility]- Went Unrepsonsive, Hit head 2017 Hospitalization History [facility]- Back Pain 8
--- OUTSIDE RECORDS SUMMARY | 2020-06-18 15:01 | XMS REPORT ---
Author Author Sanjuanita JOHNSON [facility] Address [address] [place] [address] Care Team Providers Care Hourly Shift Manager Name Role Phone ELIZABETHROYASHARIF Unavailable PROBLEMS Type Condition ICD9-CM Code FXJ45-CD Code Onset Dates Condition S tatus SNOMED Code Problem Coronary artery disease I25.10 Active 38386267 Problem Hypertension I10 Active 8803135 3 Problem Other chronic pain G89.29 Active 8 9693043 Problem Hyperlipidemia E78.5 Active 58192 004 Problem Type 2 diabetes mellitus wit hout complication, without long-term current use of insulin E11.9 Active 749726138 Problem Low back pain M54.5 Active 288673 009 Problem Pharyngeal dysphagia R13.13 Active 59693675656099 Problem Anxiety F41.9 Active 28642983 Problem Peripheral vascular disease I73.9 Ac tive 873957170 Problem Neurogenic bladder N31.9 Active 3 33671529 Problem Reactive depression F32.9 Active 17178545 Problem Microcytic anemia D50.9 Active 23 9481954 Problem Ventral hernia without obstruction or gangrene K43 .9 Active 277707302 Problem Insomnia G47.00 Active 119119479 Problem Paroxysmal atrial fibrillation I48.0 Active 180226206 Problem 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 Active 63672355 Problem Encounter for suprapubic catheter care Z43.5 Active [id number] ALLERGIES No Information ENCOUNTERS Encounter Location Date Diagnosis [facility] [id number] [place] [address] Dec, Via [facility] [address] [place] [id number] Dec, Encounter for suprapubic catheter care Z 43.5 and Microcytic anemia D50.9 [facility] [id number] [place] [address] Dec, [place] [id number] [place] [address] Nov, Anxiety F41.9 and Strain of right should er, subsequent encounter S46.911D [place] [id number] [place] [address] Nov, Hypertension I10 Via [facility] [employer] [address] [place] [id number] Nov, Pneumonia of both lungs due to infectiou s organism, unspecified part of lung J18.9 and Suprapubic catheter Z93.59 [place] [id number] [place] [address] Nov, Hypertension I10 and Reactive depression F32.9 [place] [id number] [place] [address] Oct, Strain of right shoulder, subsequent enc ounter S46.911D and Anxiety F41.9 [place] [id number] [place] [address] Oct, Via [facility] [employer] [address] [place] [id number] Oct, Suprapubic catheter Z93.59 and Candidias is, intertriginous B37.2 [place] [id number] [place] [address] Oct, Suprapubic catheter Z93.59 [place] [address] [place] [address] Oct, Anxiety F41.9 and Strain of right should er, subsequent encounter S46.911D [place] [id number] [place] [address] Sep, [place] [address] [place] [address] Sep, [place] [id number] [place] [address] Sep, [facility] [address] [place] [address] Sep, Suprapubic catheter Z93.59 [facility] [id number] [place] [address] Sep, Anxiety F41.9 and Strain of right should er, subsequent encounter S46.911D [facility] [id number] [place] [address] Aug, [facility] [id number] [place] [address] Aug, [facility] [id number] [place] [address] Aug, Anxiety F41.9 and Strain of right should er, subsequent encounter S46.911D Via [facility] [address] [place] [address] Aug, Suprapubic catheter Z93.59 [facility] [id number] [place] [address] Jul, Strain of right shoulder, subsequent enc ounter S46.911D and Anxiety F41.9 [facility] [id number] [place] [address] Jul, Anxiety F41.9 [facility] [id number] [place] [address] Jun, [facility] [id number] [place] [address] Jun, [facility] [id number] [place] [address] Jun, [facility] [id number] [place] [address] Jun, Strain of right shoulder, subsequent enc ounter S46.911D [facility] [id number] [place] [address] Jun, Strain of right shoulder, subsequent enc ounter S46.911D [facility] [id number] [place] [address] Jun, Anxiety F41.9 Via [facility] [address] [place] [address] Jun, Neurogenic bladder N31.9 and Anxiety F41 .9 Via [facility] [address] [place] [address] May, Anxiety F41.9 [place] [address] [address] May, Dysuria R30.0 [place] [address] [address] May, Strain of right shoulder, subsequent enc ounter S46.911D and Anxiety F41.9 [place] [address] [address] Apr, Via [facility] [address] [place] [address] Apr, Strain of right shoulder, subsequent enc ounter S46.911D [place] [address] [address] 14 Apr, 2019 Strain of right shoulder, subsequent enc ounter S46.911D and Anxiety F41.9 Via [facility] [address] [place] [address] 13 Apr, 2019 Type 2 diabetes mellitus without complic ation, without long-term current use of insulin E11.9 and Neurogenic bladder N31.9 Via [facility] [address] [place] [address] Apr, Strain of right shoulder, subsequent enc ounter S46.911D ; History of GI bleed Z87.19 ; Neurogenic bladder N31.9 and Reactive depression F32.9 [place] [address] [address] 10 Apr, 2019 Acute pain of left shoulder M25.512 [place] [address] [address] 07 Apr, 2019 [place] [address] [address] Apr, Anxiety F41.9 and Other chronic pain G89 .29 [facility] [address] [place] [address] March, Gastrointestinal hemorrhage associated w ith acute gastritis K29.01 [facility] [address] [address] March, Via [facility] [employer] [address] [place] [id number] March, Bronchitis J40 [facility] [address] [address] March, Cough R05 [place] [address] [address] March, Other chronic pain G89.29 [place] [address] [address] March, Anxiety F41.9 [facility] [address] [address] March, [facility] [address] [address] Feb, Other chronic pain G89.29 [facility] [address] [address] Feb, Anxiety F41.9 [place] [address] [address] Feb, Other chronic pain G89.29 [facility] [address] [place] [address] Feb, Neurogenic bladder N31.9 and Suprapubic catheter Z93.59 [place] [address] [address] Jan, Anxiety F41.9 [facility] [address] [address] Dec, Anxiety F41.9 [facility] [address] [address] [address] Dec, Other chronic pain G89.29 and Anxiety F4 1.9 [facility] [address] [address] Dec, Via [employer] [address] [place] [address] Dec, Neurogenic bladder N31.9 and Suprapubic catheter Z93.59 [facility] [address] [address] Nov, Other chronic pain G89.29 and Anxiety F4 1.9 [facility] [address] [address] Nov, Via [facility] [employer] [address] [place] [address] Nov, Suprapubic catheter Z93.59 [facility] [address] [address] Oct, Other chronic pain G89.29 and Anxiety F4 1.9 [facility] [address] [address] Oct, [facility] [address] [address] Oct, Suprapubic catheter Z93.59 [facility] [address] [address] Oct, Via [employer] [address] [place] [address] Oct, [facility] [address] [address] Oct, Anxiety F41.9 [facility] [address] [address] Oct, Anxiety F41.9 Via [facility] [address] [place] [address] Oct, Other chronic pain G89.29 [place] [address] [address] 14 Sep, 2018 Other chronic pain G89.29 Via [employer] [address] [place] [address] Sep, Suprapubic catheter Z93.59 and Cervicalg ia M54.2 [facility] [address] [address] Sep, [facility] [address] [address] Sep, [facility] [address] [address] Sep, Via [facility] [address] [place] [address] Aug, Cystitis N30.90 [facility] [address] [address] Aug, [facility] [address] [address] Aug, Other chronic pain G89.29 [facility] [address] [address] Aug, Via [facility] [address] [place] [address] Aug, Encounter for suprapubic catheter care Z 43.5 [facility] [address] [address] Jul, Via [employer] [address] [place] [address] Jul, [facility] [address] [address] Jul, Other chronic pain G89.29 [facility] [address] [address] Jul, [facility] [address] [address] Jul, Via [facility] [address] [place] [address] Jun, Postmenopausal atrophic vaginitis N95.2 [place] [address] [address] Jun, Other chronic pain G89.29 [place] [address] [address] Jun, Via [facility] [address] [place] [address] May, Anxiety F41.9 ; Type 2 diabetes mellitus without complication, without long-term current use of insulin E11.9 ; Hypertension I10 ; Low back pain M54.5 ; Paroxysmal atrial fibrillation I48.0 and 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 [place] [address] [address] May, Other chronic pain G89.29 Via [employer] [address] [place] [address] May, Low back pain M54.5 [place] [address] [address] May, [place] [address] [address] Apr, Other chronic pain G89.29 [place] [address] [address] Apr, [place] [address] [address] Apr, Via [facility] [address] [place] [address] Apr, Closed compression fracture of L3 lumbar vertebra with routine healing, subsequent encounter S32.030D [facility] [address] [place] [address] Apr, Low back pain M54.5 [facility] [address] [place] [id number] Apr, Coccydynia M53.3 [place] [address] [address] March, [facility] [id number] [place] [address] March, Other chronic pain G89.29 [facility] [id number] [place] [address] March, [facility] [id number] [place] [address] March, [facility] [id number] [place] [address] Feb, [facility] [id number] [place] [address] Feb, Other chronic pain G89.29 Via [facility] [email or web address] [address] [place] [id number] Feb, Other chronic pain G89.29 and Anxiety F4 1.9 [facility] [id number] [place] [address] Feb, [facility] [id number] [place] [address] Jan, [facility] [address] [address] Jan, [facility] [id number] [place] [address] Jan, [facility] [id number] [place] [address] Jan, [facility] [address] [place] [address] Dec, Via [facility] [address] [place] [address] Dec, Peripheral vascular disease I73.9 ; 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 ; Other chronic pain G89.29 ; Anxiety F41.9 ; Reactive depression F32.9 ; Insomnia G47.00 and Type 2 diabetes mellitus without complication, without long-term current use of insulin E11.[id number] [place] [address] Nov, [facility] [place] [address] [id number] [place] [id number] Nov, Anxiety F41.9 [facility] [id number] [place] [address] Nov, [facility] [place] [address] [id number] [place] [id number] Nov, Anxiety F41.9 Via [facility] [address] [place] [address] Nov, Status post surgery Z98.890 ; Confused R 41.0 ; Anxiety F41.9 and Other chronic pain G89.29 [place] [address] [id number] [place] [id number] Nov, Other chronic pain G89.29 [place] [address] [address] Oct, [place] [address] [id number] [place] [id number] Oct, Other chronic pain G89.29 [place] [id number] [place] [address] Oct, Anxiety F41.9 [place] [address] [id number] [place] [id number] Sep, Other chronic pain G89.29 [place] [address] [id number] [place] [address] Sep, Via [facility] [employer] [address] [place] [id number] Aug, Dysuria R30.0 and Anxiety F41.9 [place] [id number] [place] [address] Aug, [place] [address] [id number] [place] [id number] Aug, Other chronic pain G89.29 [place] [id number] [place] [address] 11 Jul, 2017 Other chronic pain G89.29 [facility] [address] [id number] [place] [id number] Jun, [facility] [address] [id number] [place] [address] 15 Jun, 2017 Other chronic pain G89.29 [facility] [address] [address] Jun, [place] [address] [address] May, Other chronic pain G89.29 [place] [address] [address] Apr, Other chronic pain G89.29 Via [email or web address] [employer] [address] [place] [address] Apr, Reactive depression F32.9 and Pharyngeal dysphagia R13.13 [place] [address] [address] Apr, Urinary tract infection without hematuri a, site unspecified N39.0 [place] [address] [address] March, Other chronic pain G89.29 [place] [address] [address] Feb, Other chronic pain G89.29 [place] [address] [address] Feb, [facility] [place] [address] [id number] [place] [id number] Feb, Via [facility] [address] [place] [address] Feb, Dysuria R30.0 and Ventral hernia without obstruction or gangrene K43.9 [place] [address] [address] Jan, Other chronic pain G89.29 [facility] [address] [id number] [place] [address] Dec, Other chronic pain G89.29 [facility] [address] [address] Nov, Other chronic pain G89.29 Via [facility] [address] [place] [id number] Nov, Lymphadenitis I88.9 [facility] [address] [address] Nov, Other chronic pain G89.29 [facility] [address] [address] Nov, [facility] [address] [id number] [address] Nov, Other chronic pain G89.29 Via [facility] [address] [place] [address] Oct, Low back pain M54.5 ; Hypertension I10 a nd Type 2 diabetes mellitus without complication, without long-term current use of insulin E11.9 [facility] [address] [address] Oct, [facility] [address] [address] Oct, [facility] [address] [address] Oct, [facility] [address] [address] Oct, [facility] [address] [address] Sep, [facility] [address] [address] Sep, [facility] [address] [address] Aug, Other chronic pain G89.29 [facility] [id number] [place] [address] Jul, [facility] [id number] [place] [address] Jul, [facility] [id number] [place] [address] Jul, [facility] [id number] [place] [address] Jun, [facility] [id number] [place] [address] Jun, Via [facility] [address] [place] [id number] Jun, Low back pain M54.5 ; Other chronic pain G89.29 and Coronary artery disease I25.10 [facility] [id number] [place] [address] Jun, [facility] [id number] [place] [address] May, [facility] [id number] [place] [address] May, [facility] [id number] [place] [address] May, Other chronic pain G89.29 [facility] [id number] [place] [address] May, [facility] [id number] [place] [address] Apr, [facility] [id number] [place] [address] Apr, Acute cystitis without hematuria N30.00 [facility] [id number] [place] [address] 16 Apr, 2016 Acute cystitis without hematuria N30.00 ; Coronary artery disease I25.10 ; Low back pain M54.5 and Other chronic pain G89.29 [facility] [address] [address] [place] [address] 13 Apr, 2016 Other chronic pain G89.29 [facility] [address] [address] March, Other chronic pain G89.29 [facility] [id number] [place] [address] 18 Feb, 2016 [facility] [address] [address] 15 Feb, 2016 Arthritis M19.90 [facility] [address] [address] Feb, [facility] [address] [address] Jan, [facility] [address] [address] Jan, [facility] [address] [address] Jan, Other chronic pain G89.29 [facility] [address] [address] Jan, Hypertension I10 ; Coronary artery disea se I25.10 and Insomnia G47.00 [facility] [id number] [place] [address] Jan, [facility] [address] [address] Dec, Right hip pain M25.551 [facility] [address] [address] Dec, [facility] [address] [address] Dec, [facility] [address] [address] Dec, [facility] [address] [address] Dec, Other chronic pain G89.29 [facility] [address] [address] Dec, [facility] [address] [address] Nov, [facility] [address] [address] Nov, Other chronic pain G89.29 [facility] [address] [address] Nov, Right hip pain M25.551 and Coronary karissa ry disease I25.10 [facility] [address] [address] Nov, Other chronic pain G89.29 [facility] [address] [address] Oct, [facility] [address] [address] Oct, [facility] [address] [address] Sep, [facility] [address] [address] Sep, [facility] [address] [address] Aug, [facility] [address] [address] Aug, Hypertension I10 ; Coronary artery disea se I25.10 and Arthritis M19.90 [facility] [address] [address] Jun, [facility] [address] [address] Jun, Essential hypertension, benign 401.1 ; O ther chronic pain 338.29 and Chronic airway obstruction, not elsewhere classified 496 [facility] [address] [address] Jun, [facility] [address] [facility] [id number] [place] [address] Jun, [facility] [id number] [place] [address] Jun, [facility] [id number] [place] [address] May, [facility] [id number] [place] [address] May, [facility] [id number] [place] [address] Apr, [facility] [id number] [place] [address] Apr, [facility] [id number] [place] [address] Apr, [facility] [id number] [place] [address] March, [facility] [id number] [place] [address] March[facility] [id number] [place] [address] March, [facility] [id number] [place] [address] March, [facility] [id number] [place] [address] March, Sialadenitis 527.2 [facility] [id number] [place] [address] Feb, [facility] [id number] [place] [address] Feb, [facility] [id number] [place] [address] Feb, [facility] [id number] [place] [address] Feb, [facility] [id number] [place] [address] 13 Feb, 2015 [facility] [address] [facility] [facility] [id number] [facility] [place] [address] Jan, [facility] [address] [facility] [facility] [id number] [place] [address] Jan, [facility] [id number] [place] [address] Jan, [facility] [id number] [place] [address] Jan, [facility] [id number] [place] [address] Jan, [facility] [id number] [place] [address] Jan, [facility] [id number] [place] [address] Dec, [facility] [id number] [place] [address] Dec, 2014 [facility] [id number] [place] [address] Dec, [facility] [address] [id number] [place] [address] Dec, [facility] [place] [facility] [address] [facility] [id number] [place] [address] Dec, [facility] [place] [facility] [address] [id number] [place] [address] Dec, [facility] [place] [facility] [address] [id number] [place] [address] Nov, [facility] [place] [facility] [address] [id number] [place] [address] Nov, [facility] [place] [facility] [address] [id number] [place] [address] Nov, [facility] [place] [facility] [address] [id number] [place] [address] Nov, [facility] [address] [id number] [place] [address] Nov, [facility] [place] [facility] [address] [id number] [place] [address] Nov, [facility] [place] [facility] [address] [id number] [place] [address] Nov, [facility] [place] [facility] [address] [id number] [place] [address] Nov, [facility] [place] [facility] [address] [id number] [place] [address] Nov, [facility] [place] [facility] [address] [id number] [place] [address] Nov, [facility] [place] [facility] [address] [id number] [place] [address] Nov, [facility] [place] [facility] [address] [id number] [place] [address] Nov, [facility] [place] [facility] [address] [id number] [place] [address] Nov, [facility] [place] [facility] [address] [id number] [place] [address] Nov, [facility] [place] [facility] [address] [id number] [place] [address] Oct, [facility] [place] [facility] [address] [id number] [place] [address] Oct, [facility] [place] [facility] [address] [id number] [place] [address] Oct, [facility] [place] [facility] [address] [id number] [place] [address] 18 Oct, 2014 [facility] [place] [facility] [address] [id number] [place] [address] Oct, [facility] [place] [facility] [address] [id number] [place] [address] 17 Oct, 2014 [facility] [place] [facility] [address] [id number] [place] [address] Oct, [facility] [place] [facility] [address] [id number] [place] [address] Oct, [facility] [place] [facility] [address] [id number] [place] [address] Oct, [facility] [place] [facility] [address] [id number] [place] [address] Sep, [facility] [place] [facility] [address] [id number] [place] [address] Sep, [facility] [place] [facility] [address] [id number] [place] [address] Sep, [facility] [place] [facility] [address] [id number] [place] [address] Sep, [facility] [place] [facility] [address] [id number] [place] [address] Sep, [facility] [place] [facility] [address] [id number] [place] [address] Sep, [facility] [place] [facility] [address] [id number] [place] [address] Sep, [facility] [place] [facility] [address] [id number] [place] [address] Sep, [facility] [place] [facility] [address] [id number] [place] [address] Sep, [facility] [place] [facility] [address] [id number] [place] [address] Sep, [facility] [place] [facility] [address] [id number] [place] [address] Sep, [facility] [place] [facility] [address] [id number] [place] [address] Sep, [facility] [place] [facility] [address] [id number] [place] [address] Aug, [facility] [place] [facility] [address] [id number] [place] [address] Aug, [facility] [place] [facility] [address] [id number] [place] [address] 29 Aug, 2013 [facility] [place] [facility] [address] [facility] [id number] [place] [address] 29 Aug, 2014 [facility] [place] [facility] [address] [facility] [id number] [place] [address] 28 Aug, 2014 [facility] [place] [facility] [address] [id number] [place] [address] 28 Aug, 2014 [facility] [place] [facility] [address] [id number] [place] [address] Aug, [facility] [place] [facility] [address] [facility] [id number] [place] [address] 17 Aug, 2014 [facility] [place] [facility] [address] [id number] [place] [address] 30 Jul, 2013 [facility] [place] [facility] [address] [id number] [place] [address] 30 Jul, 2013 [facility] [place] [facility] [address] [id number] [place] [address] 30 Jul, 2013 [facility] [place] [facility] [address] [id number] [place] [address] 30 Jul, 2013 [facility] [place] [facility] [address] [id number] [place] [address] 25 Jul, 2013 [facility] [place] [facility] [address] [id number] [place] [address] 25 Jul, 2013 [facility] [place] [facility] [address] [id number] [place] [address] 15 Jul, 2013 [facility] [place] [facility] [address] [facility] [id number] [place] [address] 15 Jul, 2013 [facility] [place] [facility] [address] [id number] [place] [address] 11 Jul, 2013 [facility] [place] [facility] [address] [id number] [place] [address] 11 Jul, 2013 [facility] [place] [facility] [address] [id number] [place] [address] Jun, [facility] [place] [facility] [address] [id number] [place] [address] Jun, [facility] [place] [facility] [address] [facility] [id number] [facility] [place] [address] Jun, [facility] [place] [facility] [address] [facility] [id number] [place] [address] Jun, [facility] [place] [facility] [address] [facility] [id number] [facility] [place] [address] Jun, [facility] [place] [facility] [address] [facility] [id number] [facility] [place] [address] Jun, [facility] [place] [facility] [address] [id number] [place] [address] Jun, [facility] [place] [facility] [address] [id number] [place] [address] Jun, [facility] [place] [facility] [address] [id number] [place] [address] Jun, [facility] [place] [facility] [address] [id number] [place] [address] Jun, [facility] [place] [facility] [address] [id number] [place] [address] Jun, [facility] [place] [facility] [address] [id number] [place] [address] Jun, [facility] [place] [facility] [address] [id number] [place] [address] Jun, [facility] [place] [facility] [address] [id number] [place] [address] Jun, [facility] [place] [facility] [address] [id number] [place] [address] Jun, [facility] [place] [facility] [address] [id number] [place] [address] Jun, [facility] [place] [facility] [address] [id number] [place] [address] Jun, [facility] [place] [facility] [address] [id number] [place] [address] Jun, [facility] [place] [facility] [address] [id number] [facility] [place] [address] Jun, [facility] [place] [facility] [address] [facility] [id number] [facility] [place] [address] Jun, [facility] [place] [facility] [address] [id number] [facility] [place] [address] Jun, [facility] [place] [facility] [address] [facility] [id number] [place] [address] Jun, [facility] [place] [facility] [address] [facility] [id number] [facility] [place] [address] May, [facility] [place] [facility] [address] [facility] [id number] [place] [address] May, [facility] [place] [facility] [address] [id number] [facility] [place] [address] May, [facility] [place] [facility] [address] [id number] [facility] [place] [address] May, [facility] [place] [facility] [address] [facility] [id number] [facility] [place] [address] May, [facility] [place] [facility] [address] [id number] [facility] [place] [address] May, [facility] [place] [facility] [address] [id number] [place] [address] May, 2013 [facility] [place] [facility] [address] [id number] [place] [address] May, 2013 [facility] [place] [facility] [address] [facility] [id number] [facility] [place] [address] May, [facility] [place] [facility] [address] [id number] [place] [address] May, [facility] [place] [facility] [address] [facility] [id number] [place] [address] May, [facility] [place] [facility] [address] [id number] [facility] [place] [address] May, [facility] [place] [facility] [address] [facility] [id number] [facility] [place] [address] May, [facility] [place] [facility] [address] [id number] [place] [address] Apr, [facility] [place] [facility] [address] [facility] [id number] [place] [address] Apr, [facility] [place] [facility] [address] [id number] [place] [address] Apr, [facility] [place] [facility] [address] [facility] [id number] [facility] [place] [address] Apr, [facility] [place] [facility] [address] [facility] [id number] [place] [address] Apr, [facility] [place] [facility] [address] [id number] [place] [address] Apr, [facility] [place] [facility] [address] [id number] [place] [address] Apr, [facility] [place] [facility] [address] [id number] [place] [address] Apr, [facility] [place] [facility] [address] [facility] [id number] [place] [address] Apr, [facility] [place] [facility] [address] [id number] [place] [address] March, [facility] [place] [facility] [address] [id number] [place] [address] March, [facility] [place] [facility] [address] [id number] [place] [address] March, [facility] [place] [facility] [address] [facility] [id number] [place] [address] March, [facility] [place] [facility] [address] [id number] [place] [address] March, [facility] [place] [facility] [address] [id number] [place] [address] March, [facility] [place] [facility] [address] [id number] [place] [address] March, [facility] [place] [facility] [address] [id number] [place] [address] March, [facility] [place] [facility] [address] [id number] [place] [address] March, [facility] [place] [facility] [address] [id number] [place] [address] March, [facility] [place] [facility] [address] [id number] [place] [address] March, [facility] [place] [facility] [address] [id number] [place] [address] March, [facility] [place] [facility] [address] [id number] [place] [address] March, [facility] [place] [facility] [address] [id number] [place] [address] March, [facility] [place] [facility] [address] [id number] [place] [address] March, [facility] [place] [facility] [address] [id number] [place] [address] March, [facility] [place] [facility] [address] [id number] [place] [address] March, [facility] [place] [facility] [address] [id number] [place] [address] March, [facility] [place] [facility] [address] [id number] [place] [address] March, [facility] [place] [facility] [address] [id number] [place] [address] March, [facility] [place] [facility] [address] [id number] [place] [address] Feb, [facility] [place] [facility] [address] [id number] [place] [address] Feb, [facility] [place] [facility] [address] [id number] [place] [address] Feb, [facility] [place] [facility] [address] [id number] [place] [address] Feb, [facility] [place] [facility] [address] [facility] [id number] [facility] [place] [address] Feb, [facility] [place] [facility] [address] [facility] [id number] [facility] [place] [address] Feb, [facility] [place] [facility] [address] [id number] [facility] [place] [address] Feb, [facility] [place] [facility] [address] [id number] [place] [address] Feb, [facility] [place] [facility] [address] [facility] [id number] [facility] [place] [address] Jan, [facility] [place] [facility] [address] [id number] [place] [address] Jan, [facility] [place] [facility] [address] [id number] [place] [address] Jan, [facility] [place] [facility] [address] [id number] [place] [address] Jan, [facility] [place] [facility] [address] [id number] [facility] [place] [address] Jan, [facility] [place] [facility] [address] [id number] [place] [address] Jan, [facility] [place] [facility] [address] [id number] [place] [address] Jan, [facility] [place] [facility] [address] [id number] [place] [address] Jan, [facility] [place] [facility] [address] [facility] [id number] [facility] [place] [address] Jan, [facility] [place] [facility] [address] [id number] [place] [address] Jan, [facility] [place] [facility] [address] [id number] [place] [address] Dec, [facility] [place] [facility] [address] [id number] [place] [address] Dec, [facility] [place] [facility] [address] [id number] [place] [address] Dec, [facility] [place] [facility] [address] [id number] [place] [address] Dec, [facility] [place] [facility] [address] [id number] [place] [address] Dec, [facility] [place] [facility] [address] [id number] [place] [address] Dec, [facility] [place] [facility] [address] [id number] [place] [address] Dec, [facility] [place] [facility] [address] [id number] [place] [address] Dec, [facility] [place] [facility] [address] [id number] [place] [address] Nov, [facility] [place] [facility] [address] [id number] [place] [address] Nov, [facility] [place] [facility] [address] [id number] [place] [address] Nov, [facility] [place] [facility] [address] [id number] [place] [address] Nov, [facility] [place] [facility] [address] [id number] [place] [address] Nov, [facility] [place] [facility] [address] [id number] [place] [address] Nov, [facility] [place] [facility] [address] [id number] [place] [address] Nov, [facility] [place] [facility] [address] [id number] [place] [address] Nov, [facility] [place] [facility] [address] [id number] [place] [address] Nov, [facility] [place] [facility] [address] [id number] [place] [address] Nov, [facility] [place] [facility] [address] [id number] [place] [address] Nov, [facility] [address] [id number] [place] [address] Nov, [facility] [place] [facility] [address] [id number] [place] [address] Nov, [facility] [place] [facility] [address] [id number] [place] [address] Oct, [facility] [place] [facility] [address] [id number] [place] [address] Oct, [facility] [place] [facility] [address] [id number] [place] [address] Oct, [facility] [place] [facility] [address] [id number] [place] [address] Oct, [facility] [place] [facility] [address] [id number] [place] [address] Oct, [facility] [place] [facility] [address] [id number] [place] [address] Oct, [facility] [place] [facility] [address] [id number] [place] [address] Oct, [facility] [place] [facility] [address] [id number] [place] [address] Oct, [facility] [place] [facility] [address] [id number] [place] [address] Oct, [facility] [place] [facility] [address] [id number] [place] [address] Oct, [facility] [place] [facility] [address] [id number] [place] [address] Oct, [facility] [place] [facility] [address] [id number] [place] [address] Oct, [facility] [place] [facility] [address] [id number] [place] [address] Oct, [facility] [place] [facility] [address] [id number] [place] [address] Oct, [facility] [place] [facility] [address] [id number] [place] [address] 14 Sep, 2013 [facility] [place] [facility] [address] [id number] [place] [address] 14 Sep, 2013 [facility] [place] [facility] [address] [id number] [place] [address] Sep, [facility] [place] [facility] [address] [id number] [place] [address] Sep, [facility] [place] [facility] [address] [id number] [place] [address] Sep, [facility] [place] [facility] [address] [id number] [place] [address] Sep, [facility] [place] [facility] [address] [id number] [place] [address] Sep, [facility] [place] [facility] [address] [id number] [place] [address] Sep, [facility] [place] [facility] [address] [id number] [place] [address] Sep, [facility] [place] [facility] [address] [id number] [place] [address] Sep, [facility] [place] [facility] [address] [id number] [place] [address] Aug, [facility] [place] [facility] [address] [id number] [place] [address] Aug, [facility] [place] [facility] [address] [id number] [place] [address] Aug, [facility] [place] [facility] [address] [id number] [place] [address] Aug, [facility] [place] [facility] [id number] [place] [address] Aug, [facility] [place] [facility] [address] [id number] [place] [address] Aug, [facility] [place] [facility] [address] [id number] [place] [address] Aug, [facility] [place] [facility] [address] [facility] [id number] [place] [address] 23 Aug, 2012 [facility] [place] [facility] [address] [facility] [id number] [place] [address] 22 Aug, 2012 [facility] [place] [facility] [address] [facility] [id number] [place] [address] 22 Aug, 2012 [facility] [place] [facility] [id number] [place] [address] 18 Aug, 2012 [facility] [place] [facility] [address] [facility] [id number] [place] [address] 18 Aug, 2012 [facility] [place] [facility] [id number] [place] [address] 18 Aug, 2012 [facility] [place] [facility] [id number] [place] [address] 18 Aug, 2012 [facility] [place] [facility] [id number] [place] [address] 17 Aug, 2012 [facility] [place] [facility] [id number] [place] [address] 14 Aug, 2012 [facility] [place] [facility] [id number] [place] [address] 14 Aug, 2013 [facility] [place] [facility] [id number] [place] [address] 01 Aug, 2012 [facility] [place] [facility] [id number] [place] [address] 20 Sep, 2012 [facility] [place] [facility] [address] [facility] [id number] [place] [address] 19 Sep, 2012 [facility] [place] [facility] [address] [facility] [id number] [place] [address] 18 Sep, 2012 [facility] [place] [facility] [id number] [place] [address] 11 Sep, 2012 [facility] [place] [facility] [id number] [place] [address] 11 Sep, 2012 [facility] [place] [facility] [id number] [place] [address] Jun, [facility] [place] [facility] [address] [id number] [facility] [place] [address] Jun, [facility] [place] [facility] [address] [facility] [id number] [place] [address] Jun, [facility] [place] [facility] [id number] [facility] [place] [address] Jun, [facility] [place] [facility] [address] [facility] [id number] [place] [address] Jun, [facility] [place] [facility] [address] [facility] [id number] [place] [address] Jun, [facility] [place] [facility] [address] [facility] [id number] [place] [address] Jun, [facility] [place] [facility] [id number] [facility] [place] [address] Jun, [facility] [place] [facility] [id number] [facility] [place] [address] Jun, [facility] [place] [facility] [address] [facility] [id number] [facility] [place] [address] Jun, [facility] [place] [facility] [address] [facility] [id number] [facility] [place] [address] May, [facility] [place] [facility] [id number] [facility] [place] [address] May, [facility] [place] [facility] [id number] [place] [address] May, [facility] [place] [facility] [address] [facility] [id number] [facility] [place] [address] May, [facility] [place] [facility] [address] [id number] [place] [address] May, [facility] [place] [facility] [address] [facility] [id number] [facility] [place] [address] May, [facility] [place] [facility] [id number] [place] [address] May, [facility] [place] [facility] [id number] [place] [address] May, [facility] [place] [facility] [address] [facility] [id number] [place] [address] May, [facility] [place] [facility] [id number] [place] [address] Apr, [facility] [place] [facility] [id number] [place] [address] Apr, [facility] [place] [facility] [id number] [place] [address] Apr, [facility] [place] [facility] [id number] [place] [address] Apr, [facility] [place] [facility] [id number] [place] [address] Apr, [facility] [place] [facility] [id number] [place] [address] Apr, [facility] [place] [facility] [id number] [place] [address] Apr, [facility] [place] [facility] [id number] [place] [address] March, [facility] [place] [facility] [id number] [place] [address] Feb, [facility] [place] [facility] [id number] [place] [address] Feb, [facility] [place] [facility] [id number] [place] [address] Feb, [facility] [place] [facility] [id number] [place] [address] Jan, [facility] [place] [facility] [id number] [place] [address] Jan, [facility] [place] [facility] [id number] [place] [address] Jan, [facility] [place] [facility] [id number] [place] [address] 14 Jan, 2013 [facility] [place] [facility] [id number] [place] [address] 12 Jan, 2013 [facility] [id number] [place] [address] 08 Jan, 2013 [facility] [place] [facility] [id number] [place] [address] 07 Jan, 2013 [facility] [id number] [place] [address] 04 Jan, 2013 [facility] [place] [facility] [id number] [place] [address] 28 Dec, 2012 [facility] [id number] [place] [address] 25 Dec, 2012 [facility] [place] [facility] [id number] [place] [address] 13 Dec, 2012 [facility] [id number] [place] [address] 11 Dec, 2012 [facility] [place] [facility] [id number] [place] [address] 07 Dec, 2012 [facility] [place] [facility] [id number] [place] [address] 06 Dec, 2012 [facility] [place] [facility] [id number] [place] [address] 05 Dec, 2012 [facility] [place] [facility] [id number] [place] [address] 31 Nov, 2012 [facility] [place] [facility] [id number] [place] [address] 24 Nov, 2012 [facility] [place] [facility] [id number] [place] [address] 18 Nov, 2012 [facility] [place] [facility] [id number] [place] [address] 15 Nov, 2012 [facility] [place] [facility] [id number] [place] [address] 10 Nov, 2012 [facility] [facility] [id number] [place] [address] Nov, [facility] [id number] [place] [address] Nov, [facility] [id number] [place] [address] Oct, [facility] [id number] [place] [address] Oct, [facility] [id number] [place] [address] Oct, [facility] [id number] [place] [address] Oct, [facility] [id number] [place] [address] Oct, [facility] [id number] [place] [address] Oct, [facility] [id number] [place] [address] Oct, [facility] [id number] [place] [address] Oct, [facility] [id number] [place] [address] Oct, [facility] [id number] [place] [address] Oct, [facility] [id number] [place] [address] Oct, [facility] [id number] [place] [address] Oct, [facility] [id number] [place] [address] Sep, [facility] [id number] [place] [address] Sep, [facility] [id number] [place] [address] Sep, [facility] [id number] [place] [address] Sep, [facility] [id number] [place] [address] Sep, [facility] [id number] [place] [address] Sep, [facility] [id number] [place] [address] Sep, [facility] [id number] [place] [address] Sep, [facility] [id number] [place] [address] Sep, [facility] [id number] [place] [address] Sep, [facility] [id number] [place] [address] Sep, [facility] [id number] [place] [address] Aug, [facility] [id number] [place] [address] Aug, [facility] [id number] [place] [address] Aug, [facility] [id number] [place] [address] Aug, [facility] [id number] [place] [address] Aug, [facility] [id number] [place] [address] Aug, [facility] [id number] [place] [address] Aug, [facility] [id number] [place] [address] Aug, [facility] [id number] [place] [address] Aug, [facility] [address] [facility] [id number] [facility] [place] [address] Aug, [facility] [address] [facility] [id number] [facility] [place] [address] Jul, [facility] [id number] [facility] [place] [address] Jul, [facility] [id number] [facility] [place] [address] Jul, [facility] [address] [facility] [facility] [id number] [facility] [place] [address] Jul, [facility] [id number] [facility] [place] [address] Jun, [facility] [id number] [place] [address] Jun, [facility] [id number] [facility] [place] [address] Jun, [facility] [id number] [place] [address] Jun, [facility] [id number] [facility] [place] [address] Jun, [facility] [id number] [place] [address] Jun, [facility] [id number] [place] [address] Jun, [facility] [address] [facility] [facility] [id number] [place] [address] May, [facility] [address] [facility] [facility] [id number] [place] [address] May, [facility] [address] [facility] [facility] [id number] [place] [address] May, [facility] [id number] [place] [address] May, [facility] [id number] [place] [address] May, [facility] [address] [id number] [place] [address] Apr, [facility] [id number] [place] [address] Apr, [facility] [id number] [place] [address] Apr, [facility] [address] [id number] [place] [address] Apr, [facility] [address] [id number] [place] [address] Apr, [facility] [id number] [place] [address] March, [facility] [id number] [place] [address] March, [facility] [id number] [place] [address] March, [facility] [id number] [place] [address] March, [facility] [id number] [place] [address] March, [facility] [id number] [place] [address] March, [facility] [id number] [place] [address] March, [facility] [address] [id number] [place] [address] March, [facility] [address] [id number] [place] [address] March, [facility] [id number] [place] [address] March, [facility] [id number] [place] [address] Feb, [facility] [id number] [place] [address] 27 Feb, 2012 [facility] [id number] [place] [address] Feb, [facility] [id number] [place] [address] Feb, [facility] [id number] [place] [address] Feb, [facility] [id number] [place] [address] Feb, [facility] [id number] [place] [address] Feb, [facility] [id number] [place] [address] Feb, [facility] [id number] [place] [address] Feb, [facility] [id number] [place] [address] Jan, [facility] [id number] [place] [address] Jan, [facility] [id number] [place] [address] Jan, [facility] [id number] [place] [address] Jan, [facility] [id number] [place] [address] Dec, [facility] [id number] [place] [address] Dec, [facility] [id number] [place] [address] Nov, [facility] [id number] [place] [address] Nov, [facility] [id number] [place] [address] Nov, [facility] [id number] [place] [address] Nov, [facility] [id number] [place] [address] Nov, [facility] [id number] [place] [address] Oct, [facility] [id number] [place] [address] Oct, [facility] [address] [address] Oct, [facility] [address] [address] Oct, [facility] [address] [address] Oct, [facility] [address] [address] Oct, [facility] [id number] [place] [address] Oct, [facility] [address] [address] Oct, [facility] [id number] [place] [address] Sep, IMMUNIZATIONS No Known Immunizations SOCIAL HISTORY [...] fever, discharged 11/27/2017 11/26/2017 Hospitalization History [facility]- Went Unrepsonsive, Hit head 2017 Hospitalization History [facility]- Back Pain 8
--- OUTSIDE RECORDS SUMMARY | 2020-06-18 15:01 | XMS REPORT ---
Author Author Sanjuanita JOHNSON [facility] Address [address] [place] [address] Care Team Providers Care Sales Operations Analyst Name Role Phone ELIZABETH SHARIF Unavailable PROBLEMS Type Condition ICD9-CM Code KOT90-JL Code Onset Dates Condition S tatus SNOMED Code Problem Coronary artery disease I25.10 Active 75319470 Problem Hypertension I10 Active 9293416 3 Problem Other chronic pain G89.29 Active 8 3639566 Problem Hyperlipidemia E78.5 Active 35074 004 Problem Type 2 diabetes mellitus wit hout complication, without long-term current use of insulin E11.9 Active 610464176 Problem Low back pain M54.5 Active 506068 009 Problem Pharyngeal dysphagia R13.13 Active 48239551586112 Problem Anxiety F41.9 Active 69647555 Problem Peripheral vascular disease I73.9 Ac tive 664811729 Problem Suprapubic catheter Z93.59 Active 314416722 Problem Reactive depression F32.9 Active 71416645 Problem Neurogenic bladder N31.9 Active 3 17798073 Problem Ventral hernia without obstruction or gangrene K43 .9 Active 124240725 Problem Insomnia G47.00 Active 824078631 Problem Paroxysmal atrial fibrillation I48.0 Active 133722260 Problem Postmenopausal atrophic vaginitis 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 Active 54665045 Problem Encounter for suprapubic catheter care Z43.5 Active [id number] ALLERGIES No Information ENCOUNTERS Encounter Location Date Diagnosis [facility] [address] [id number] [place] [address] Nov, Hypertension I10 Via [facility] [address] [place] [id number] Nov, Pneumonia of both lungs due to infectiou s organism, unspecified part of lung J18.9 and Suprapubic catheter Z93.59 [facility] [address] [id number] [place] [address] Nov, Hypertension I10 and Reactive depression F32.9 [facility] [address] [address] Oct, Strain of right shoulder, subsequent enc ounter S46.911D and Anxiety F41.9 [facility] [address] [address] Oct, Via [facility] [address] [place] [id number] Oct, Suprapubic catheter Z93.59 and Candidias is, intertriginous B37.2 [place] [address] [address] Oct, Suprapubic catheter Z93.59 [place] [address] [address] Oct, Anxiety F41.9 and Strain of right should er, subsequent encounter S46.911D [place] [address] [address] Sep, [facility] [address] [address] Sep, [place] [address] [address] Sep, Via [facility] [address] [place] [id number] Sep, Suprapubic catheter Z93.59 [place] [address] [address] Sep, Anxiety F41.9 and Strain of right should er, subsequent encounter S46.911D [facility] [address] [address] Aug, [facility] [address] [address] Aug, [facility] [address] [address] Aug, Anxiety F41.9 and Strain of right should er, subsequent encounter S46.911D Via [facility] [address] [place] [id number] Aug, Suprapubic catheter Z93.59 [place] [address] [address] Jul, Strain of right shoulder, subsequent enc ounter S46.911D and Anxiety F41.9 [place] [address] [address] Jul, Anxiety F41.9 [place] [address] [address] Jun, [place] [address] [address] Jun, [place] [address] [address] Jun, [place] [address] [address] Jun, Strain of right shoulder, subsequent enc ounter S46.911D [place] [address] [address] Jun, Strain of right shoulder, subsequent enc ounter S46.911D [place] [address] [address] Jun, Anxiety F41.9 Via [facility] [address] [place] [id number] Jun, Neurogenic bladder N31.9 and Anxiety F41 .9 [facility] [address] [place] [id number] May, Anxiety F41.9 [place] [address] [address] May, Dysuria R30.0 [place] [address] [address] May, Strain of right shoulder, subsequent enc ounter S46.911D and Anxiety F41.9 [place] [address] [address] 27 Apr, 2019 [facility] [address] [place] [id number] Apr, Strain of right shoulder, subsequent enc ounter S46.911D [place] [address] [address] 14 Apr, 2019 Strain of right shoulder, subsequent enc ounter S46.911D and Anxiety F41.9 [facility] [address] [place] [id number] 13 Apr, 2019 Type 2 diabetes mellitus without complic ation, without long-term current use of insulin E11.9 and Neurogenic bladder N31.9 [facility] [address] [place] [id number] 11 Apr, 2019 Strain of right shoulder, subsequent enc ounter S46.911D ; History of GI bleed Z87.19 ; Neurogenic bladder N31.9 and Reactive depression F32.9 [place] [address] [address] 10 Apr, 2019 Acute pain of left shoulder M25.512 [place] [address] [address] 07 Apr, 2019 [place] [address] [address] Apr, Anxiety F41.9 and Other chronic pain G89 .29 [facility] [address] [place] [id number] March, Gastrointestinal hemorrhage associated w ith acute gastritis K29.01 [place] [address] [address] March, [facility] [address] [place] [id number] March, Bronchitis J40 [place] [address] [address] March, Cough R05 [facility] [address] [address] March, Other chronic pain G89.29 [facility] [address] [address] March, Anxiety F41.9 [facility] [address] [address] March, [facility] [address] [address] Feb, Other chronic pain G89.29 [facility] [address] [address] Feb, Anxiety F41.9 [facility] [address] [address] Feb, Other chronic pain G89.29 Via [facility] [address] [place] [id number] Feb, Neurogenic bladder N31.9 and Suprapubic catheter Z93.59 [facility] [address] [address] Jan, Anxiety F41.9 [facility] [address] [address] Dec, Anxiety F41.9 [facility] [address] [address] Dec, Other chronic pain G89.29 and Anxiety F4 1.9 [facility] [address] [address] Dec, Via [facility] [address] [place] [id number] Dec, Neurogenic bladder N31.9 and Suprapubic catheter Z93.59 [facility] [address] [address] Nov, Other chronic pain G89.29 and Anxiety F4 1.9 [facility] [address] [address] Nov, Via [facility] [address] [place] [id number] Nov, Suprapubic catheter Z93.59 [facility] [address] [address] Oct, Other chronic pain G89.29 and Anxiety F4 1.9 [facility] [address] [address] Oct, [facility] [address] [address] Oct, Suprapubic catheter Z93.59 [place] [address] [address] Oct, Via [facility] [address] [place] [id number] Oct, [facility] [address] [address] Oct, Anxiety F41.9 [place] [address] [address] Oct, Anxiety F41.9 [facility] [address] [place] [id number] Oct, Other chronic pain G89.29 [facility] [address] [address] Sep, Other chronic pain G89.29 Via [facility] [address] [place] [id number] Sep, Suprapubic catheter Z93.59 and Cervicalg ia M54.2 [facility] [address] [address] Sep, [facility] [address] [address] Sep, [facility] [address] [address] Sep, Via [facility] [address] [place] [id number] Aug, Cystitis N30.90 [place] [address] [address] Aug, [place] [address] [address] Aug, Other chronic pain G89.29 [place] [address] [address] Aug, Via [facility] [address] [place] [id number] Aug, Encounter for suprapubic catheter care Z 43.5 [place] [address] [address] Jul, Via [facility] [address] [place] [id number] Jul, [place] [address] [address] Jul, Other chronic pain G89.29 [place] [address] [address] Jul, [place] [address] [address] Jul, Via [facility] [address] [place] [id number] Jun, Postmenopausal atrophic vaginitis N95.2 [place] [address] [address] Jun, Other chronic pain G89.29 [place] [address] [address] Jun, Via [facility] [address] [place] [id number] May, Anxiety F41.9 ; Type 2 diabetes mellitus without complication, without long-term current use of insulin E11.9 ; Hypertension I10 ; Low back pain M54.5 ; Paroxysmal atrial fibrillation I48.0 and 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 [facility] [address] [id number] [place] [address] May, Other chronic pain G89.29 [facility] [address] [place] [id number] May, Low back pain M54.5 [facility] [address] [address] May, [facility] [address] [address] Apr, Other chronic pain G89.29 [facility] [address] [address] Apr, [facility] [address] [address] Apr, Via [facility] [address] [place] [id number] Apr, Closed compression fracture of L3 lumbar vertebra with routine healing, subsequent encounter S32.030D [facility] [address] [place] [id number] Apr, Low back pain M54.5 [facility] [address] [place] [id number] Apr, Coccydynia M53.3 [facility] [address] [address] March, [facility] [address] [address] March, Other chronic pain G89.29 [facility] [address] [id number] [place] [address] March, [facility] [address] [address] March, [facility] [address] [address] Feb, [facility] [address] [address] Feb, Other chronic pain G89.29 Via [facility] [address] [place] [id number] Feb, Other chronic pain G89.29 and Anxiety F4 1.9 [facility] [address] [address] Feb, [facility] [address] [address] Jan, [facility] [address] [address] Jan, [facility] [address] [address] Jan, [place] [address] [address] Jan, [facility] [address] [address] Dec, Via [facility] [address] [place] [id number] Dec, Peripheral vascular disease I73.9 ; 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 ; Other chronic pain G89.29 ; Anxiety F41.9 ; Reactive depression F32.9 ; Insomnia G47.00 and Type 2 diabetes mellitus without complication, without long-term current use of insulin E11.9 [facility] [id number] [address] Nov, [facility] [address] [id number] [place] [id number] Nov, Anxiety F41.9 [facility] [address] [address] Nov, [place] [address] [id number] [place] [id number] Nov, Anxiety F41.9 [facility] [address] [place] [id number] Nov, Status post surgery Z98.890 ; Confused R 41.0 ; Anxiety F41.9 and Other chronic pain G89.29 [facility] [address] [id number] [place] [id number] Nov, Other chronic pain G89.29 [facility] [address] [id number] [place] [address] Oct, [facility] [address] [id number] [place] [id number] Oct, Other chronic pain G89.29 [facility] [address] [id number] [place] [address] Oct, Anxiety F41.9 [facility] [address] [id number] [place] [id number] Sep, Other chronic pain G89.29 [facility] [address] [id number] [place] [id number] Sep, Via [facility] [address] [place] [id number] Aug, Dysuria R30.0 and Anxiety F41.9 [facility] [address] [id number] [place] [address] Aug, [facility] [address] [id number] [place] [id number] Aug, Other chronic pain G89.29 [facility] [id number] [place] [address] Jul, Other chronic pain G89.29 [facility] [address] [id number] [place] [id number] Jun, [facility] [address] [id number] [place] [id number] Jun, Other chronic pain G89.29 [facility] [address] [id number] [place] [address] Jun, [facility] [address] [address] May, Other chronic pain G89.29 [facility] [address] [address] Apr, Other chronic pain G89.29 [facility] [place] [facility] [address] [place] [id number] Apr, Reactive depression F32.9 and Pharyngeal dysphagia R13.13 [facility] [address] [address] Apr, Urinary tract infection without hematuri a, site unspecified N39.0 [facility] [address] [address] March, Other chronic pain G89.29 [facility] [address] [address] Feb, Other chronic pain G89.29 [facility] [address] [address] Feb, [facility] [address] [id number] [place] [id number] Feb, Via [facility] [address] [place] [id number] Feb, Dysuria R30.0 and Ventral hernia without obstruction or gangrene K43.9 [facility] [address] [address] Jan, Other chronic pain G89.29 [facility] [address] [id number] [place] [id number] Dec, Other chronic pain G89.29 [facility] [address] [address] Nov, Other chronic pain G89.29 Via [facility] [employer] [facility] [place] [facility] [address] [place] [id number] Nov, Lymphadenitis I88.9 [facility] [address] [address] Nov, Other chronic pain G89.29 [facility] [address] [id number] [place] [address] Nov, [facility] [address] [id number] [place] [id number] Nov, Other chronic pain G89.29 [facility] [place] [facility] [address] [place] [id number] Oct, Low back pain M54.5 ; Hypertension I10 a nd Type 2 diabetes mellitus without complication, without long-term current use of insulin E11.9 [facility] [address] [facility] [place] [address] Oct, [facility] [id number] [place] [address] Oct, [facility] [address] [facility] [place] [address] Oct, [facility] [id number] [place] [address] Oct, [facility] [address] [id number] [place] [address] Sep, [facility] [address] [id number] [place] [address] Sep, [facility] [address] [id number] [place] [address] Aug, Other chronic pain G89.29 [facility] [address] [id number] [place] [address] Jul, [facility] [address] [id number] [place] [address] Jul, [facility] [id number] [place] [address] Jul, [facility] [id number] [place] [address] Jun, [facility] [id number] [place] [address] Jun, Via [facility] [address] [place] [id number] Jun, Low back pain M54.5 ; Other chronic pain G89.29 and Coronary artery disease I25.10 [facility] [address] [address] Jun, [facility] [address] [address] May, [facility] [address] [address] May, [facility] [address] [address] May, Other chronic pain G89.29 [facility] [address] [address] May, [facility] [address] [address] Apr, [facility] [address] [address] Apr, Acute cystitis without hematuria N30.00 [facility] [address] [address] 16 Apr, 2016 Acute cystitis without hematuria N30.00 ; Coronary artery disease I25.10 ; Low back pain M54.5 and Other chronic pain G89.29 [facility] [address] [address] Apr, Other chronic pain G89.29 [facility] [address] [address] March, Other chronic pain G89.29 [facility] [address] [address] Feb, [facility] [address] [address] Feb, Arthritis M19.90 [facility] [address] [address] Feb, [facility] [id number] [place] [address] Jan, [facility] [address] [address] Jan, [facility] [address] [place] [address] Jan, Other chronic pain G89.29 [facility] [address] [address] Jan, Hypertension I10 ; Coronary artery disea se I25.10 and Insomnia G47.00 [facility] [address] [address] Jan, [facility] [address] [address] Dec, Right hip pain M25.551 [facility] [address] [address] Dec, [facility] [address] [address] Dec, [facility] [address] [address] Dec, [facility] [address] [address] Dec, Other chronic pain G89.29 [facility] [address] [address] Dec, [facility] [address] [address] Nov, [facility] [address] [address] Nov, Other chronic pain G89.29 [facility] [id number] [place] [address] Nov, Right hip pain M25.551 and Coronary karissa ry disease I25.10 [facility] [id number] [place] [address] Nov, Other chronic pain G89.29 [facility] [id number] [place] [address] Oct, [facility] [id number] [place] [address] Oct, [facility] [address] [place] [address] Sep, [facility] [address] [address] Sep, [facility] [address] [address] Aug, [facility] [id number] [place] [address] Aug, Hypertension I10 ; Coronary artery disea se I25.10 and Arthritis M19.90 [facility] [id number] [place] [address] Jun, [facility] [address] [place] [address] Jun, Essential hypertension, benign 401.1 ; O ther chronic pain 338.29 and Chronic airway obstruction, not elsewhere classified 496 [facility] [id number] [place] [address] Jun, [facility] [id number] [place] [address] Jun, [facility] [address] [place] [address] Jun, [facility] [address] [place] [address] May, [facility] [address] [place] [address] May, [facility] [id number] [place] [address] Apr, [facility] [address] [id number] [place] [address] 16 Apr, 2015 [facility] [address] [id number] [place] [address] Apr, [facility] [address] [id number] [place] [address] March, [facility] [address] [id number] [place] [address] March, [facility] [address] [id number] [place] [address] March, [facility] [address] [id number] [place] [address] March, [facility] [address] [id number] [place] [address] March, Sialadenitis 527.2 [facility] [address] [id number] [place] [address] Feb, [facility] [address] [id number] [place] [address] 29 Feb, 2015 [facility] [address] [id number] [place] [address] 29 Feb, 2015 [facility] [address] [id number] [place] [address] 14 Feb, 2015 [facility] [address] [id number] [place] [address] 13 Feb, 2015 [facility] [address] [id number] [place] [address] 19 Jan, 2015 [facility] [address] [id number] [place] [address] 19 Jan, 2015 [facility] [address] [id number] [place] [address] 10 Jan, 2015 [facility] [address] [id number] [place] [address] 10 Jan, 2015 [facility] [address] [id number] [place] [address] Jan, [facility] [address] [facility] [id number] [place] [address] Jan, [facility] [place] [facility] [address] [facility] [id number] [place] [address] Dec, [facility] [place] [facility] [address] [id number] [place] [address] Dec, [facility] [place] [facility] [address] [id number] [place] [address] Dec, [facility] [place] [facility] [address] [facility] [id number] [place] [address] Dec, [facility] [place] [facility] [address] [id number] [place] [address] Dec, [facility] [place] [facility] [address] [id number] [place] [address] Dec, [facility] [place] [facility] [address] [id number] [place] [address] Nov, [facility] [place] [facility] [address] [id number] [place] [address] Nov, [facility] [place] [facility] [address] [id number] [place] [address] Nov, [facility] [place] [facility] [address] [id number] [place] [address] Nov, [facility] [place] [facility] [address] [id number] [place] [address] Nov, [facility] [place] [facility] [address] [facility] [id number] [place] [address] Nov, [facility] [place] [facility] [address] [id number] [place] [address] Nov, [facility] [place] [facility] [address] [id number] [place] [address] Nov, [facility] [place] [facility] [address] [id number] [place] [address] Nov, [facility] [facility] [address] [id number] [place] [address] 15 Nov, 2014 [facility] [address] [id number] [place] [address] Nov, [facility] [address] [id number] [place] [address] Nov, [facility] [address] [id number] [place] [address] Nov, [facility] [address] [id number] [place] [address] Nov, [facility] [address] [id number] [place] [address] Oct, [facility] [address] [id number] [place] [address] Oct, [facility] [address] [id number] [place] [address] Oct, [facility] [address] [id number] [place] [address] 18 Oct, 2014 [facility] [address] [id number] [place] [address] 18 Oct, 2014 [facility] [address] [id number] [place] [address] 17 Oct, 2014 [facility] [address] [id number] [place] [address] 17 Oct, 2014 [facility] [address] [id number] [place] [address] 10 Oct, 2014 [facility] [address] [id number] [place] [address] 10 Oct, 2014 [facility] [address] [id number] [place] [address] Sep, [facility] [address] [id number] [place] [address] Sep, [facility] [address] [id number] [place] [address] Sep, [facility] [address] [id number] [place] [address] Sep, [facility] [address] [id number] [place] [address] Sep, [facility] [address] [id number] [place] [address] Sep, [facility] [address] [id number] [place] [address] Sep, [facility] [address] [id number] [place] [address] Sep, [facility] [address] [id number] [place] [address] Sep, [facility] [address] [id number] [place] [address] Sep, [facility] [address] [id number] [place] [address] Sep, [facility] [address] [id number] [place] [address] Sep, [facility] [address] [id number] [place] [address] Aug, [facility] [address] [id number] [place] [address] Aug, [facility] [address] [id number] [place] [address] Aug, [facility] [address] [id number] [place] [address] Aug, [facility] [address] [id number] [place] [address] Aug, [facility] [address] [id number] [place] [address] Aug, [facility] [address] [id number] [place] [address] Aug, [facility] [address] [id number] [place] [address] 17 Aug, 2014 [facility] [address] [id number] [place] [address] 30 Jul, 2013 [facility] [address] [facility] [id number] [place] [address] 30 Jul, 2013 [facility] [address] [id number] [place] [address] 30 Jul, 2013 [facility] [address] [facility] [id number] [place] [address] 30 Jul, 2013 [facility] [address] [facility] [id number] [place] [address] Jul, [facility] [address] [id number] [place] [address] Jul, 2013 [facility] [address] [id number] [place] [address] 15 Jul, 2014 [facility] [address] [id number] [place] [address] 15 Jul, 2013 [facility] [address] [facility] [id number] [place] [address] Jul, [facility] [address] [id number] [place] [address] Jul, [facility] [address] [id number] [place] [address] Jun, [facility] [address] [id number] [place] [address] Jun, [facility] [address] [facility] [id number] [place] [address] Jun, [facility] [address] [id number] [place] [address] Jun, [facility] [address] [id number] [place] [address] Jun, [facility] [address] [id number] [place] [address] Jun, [facility] [address] [id number] [place] [address] Jun, [facility] [address] [facility] [id number] [place] [address] Jun, [facility] [address] [facility] [id number] [place] [address] Jun, [facility] [address] [facility] [id number] [place] [address] Jun, [facility] [address] [facility] [id number] [place] [address] Jun, [facility] [address] [facility] [id number] [place] [address] Jun, [facility] [address] [id number] [place] [address] Jun, [facility] [address] [id number] [place] [address] Jun, [facility] [address] [id number] [place] [address] Jun, [facility] [address] [facility] [id number] [place] [address] Jun, [facility] [address] [id number] [place] [address] Jun, [facility] [address] [id number] [place] [address] Jun, [facility] [address] [facility] [id number] [place] [address] Jun, [facility] [address] [id number] [place] [address] Jun, [facility] [address] [id number] [place] [address] Jun, [facility] [address] [facility] [id number] [place] [address] Jun, [facility] [address] [id number] [place] [address] May, [facility] [address] [id number] [place] [address] May, 2013 [facility] [address] [id number] [place] [address] May, 2013 [facility] [address] [facility] [id number] [place] [address] May, 2013 [facility] [address] [id number] [place] [address] May, 2013 [facility] [address] [facility] [id number] [place] [address] May, 2013 [facility] [address] [facility] [id number] [place] [address] May, 2013 [facility] [address] [facility] [id number] [place] [address] May, 2013 [facility] [address] [id number] [place] [address] May, 2013 [facility] [address] [facility] [id number] [place] [address] May, [facility] [address] [id number] [place] [address] May, [facility] [address] [id number] [place] [address] May, [facility] [address] [id number] [place] [address] May, [facility] [address] [facility] [id number] [place] [address] Apr, [facility] [address] [id number] [place] [address] Apr, [facility] [address] [facility] [id number] [place] [address] Apr, [facility] [address] [id number] [place] [address] Apr, [facility] [address] [facility] [id number] [place] [address] Apr, [facility] [address] [facility] [id number] [place] [address] Apr, [facility] [address] [facility] [id number] [place] [address] Apr, [facility] [address] [id number] [place] [address] Apr, [facility] [address] [id number] [place] [address] Apr, [facility] [address] [facility] [id number] [place] [address] March, [facility] [address] [id number] [place] [address] March, [facility] [address] [id number] [place] [address] March, [facility] [address] [id number] [place] [address] March, [facility] [address] [facility] [id number] [place] [address] March, [facility] [address] [id number] [place] [address] March, [facility] [address] [id number] [place] [address] March, [facility] [address] [id number] [place] [address] March, [facility] [address] [facility] [id number] [place] [address] March, [facility] [address] [id number] [place] [address] March, [facility] [address] [id number] [place] [address] March, [facility] [address] [id number] [place] [address] March, [facility] [address] [id number] [place] [address] March, [facility] [address] [id number] [place] [address] March, [facility] [address] [id number] [place] [address] March, [facility] [address] [id number] [place] [address] March, [facility] [address] [id number] [place] [address] March, [facility] [address] [id number] [place] [address] March, [facility] [address] [id number] [place] [address] March, [facility] [address] [id number] [place] [address] March, [facility] [address] [id number] [place] [address] Feb, [facility] [address] [id number] [place] [address] Feb, [facility] [address] [id number] [place] [address] Feb, [facility] [address] [id number] [place] [address] Feb, [facility] [address] [id number] [place] [address] Feb, [facility] [address] [id number] [place] [address] Feb, [facility] [address] [id number] [place] [address] Feb, [facility] [address] [id number] [place] [address] Feb, [facility] [address] [id number] [place] [address] Jan, [facility] [address] [facility] [id number] [place] [address] Jan, [facility] [address] [facility] [id number] [place] [address] Jan, [facility] [address] [facility] [id number] [place] [address] Jan, [facility] [address] [id number] [place] [address] Jan, [facility] [address] [facility] [id number] [place] [address] Jan, [facility] [address] [id number] [place] [address] Jan, [facility] [address] [id number] [place] [address] Jan, [facility] [address] [id number] [place] [address] Jan, [facility] [address] [id number] [place] [address] Jan, [facility] [address] [id number] [place] [address] Dec, [facility] [address] [id number] [place] [address] Dec, [facility] [address] [id number] [place] [address] Dec, [facility] [address] [id number] [place] [address] 2013 [facility] [address] [facility] [id number] [place] [address] 2013 [facility] [address] [id number] [place] [address] 13 Dec, 2013 [facility] [address] [id number] [place] [address] 12 Dec, 2013 [facility] [address] [id number] [place] [address] Dec, [facility] [address] [id number] [place] [address] Nov, [facility] [address] [id number] [place] [address] Nov, [facility] [address] [id number] [place] [address] Nov, [facility] [address] [id number] [place] [address] Nov, [facility] [address] [id number] [place] [address] Nov, [facility] [address] [id number] [place] [address] Nov, [facility] [address] [id number] [place] [address] Nov, [facility] [address] [id number] [place] [address] Nov, [facility] [address] [id number] [place] [address] Nov, [facility] [address] [id number] [place] [address] Nov, [facility] [address] [id number] [place] [address] Nov, [facility] [address] [id number] [place] [address] Nov, [facility] [address] [id number] [place] [address] Nov, [facility] [address] [id number] [place] [address] Oct, [facility] [address] [id number] [place] [address] Oct, [facility] [address] [id number] [place] [address] Oct, [facility] [address] [id number] [place] [address] Oct, 2012 [facility] [address] [id number] [place] [address] Oct, [facility] [address] [id number] [place] [address] Oct, [facility] [address] [id number] [place] [address] Oct, [facility] [address] [id number] [place] [address] Oct, [facility] [address] [id number] [place] [address] Oct, [facility] [address] [id number] [place] [address] Oct, [facility] [id number] [place] [address] Oct, [facility] [address] [id number] [place] [address] Oct, [facility] [address] [id number] [place] [address] Oct, [facility] [address] [id number] [place] [address] Oct, [facility] [address] [id number] [place] [address] 14 Sep, 2013 [facility] [address] [id number] [place] [address] 14 Sep, 2013 [facility] [address] [id number] [place] [address] 05 Sep, 2013 [facility] [address] [id number] [place] [address] 05 Sep, 2013 [facility] [address] [id number] [place] [address] 04 Sep, 2013 [facility] [address] [id number] [place] [address] Sep, [facility] [address] [id number] [place] [address] Sep, [facility] [address] [id number] [place] [address] Sep, [facility] [address] [id number] [place] [address] Sep, [facility] [address] [id number] [place] [address] Sep, [facility] [address] [id number] [place] [address] Aug, [facility] [address] [id number] [place] [address] Aug, [facility] [address] [id number] [place] [address] Aug, [facility] [address] [id number] [place] [address] Aug, [facility] [address] [id number] [place] [address] Aug, [facility] [address] [id number] [place] [address] Aug, [facility] [address] [id number] [place] [address] Aug, [facility] [address] [id number] [place] [address] Aug, [facility] [address] [id number] [place] [address] Aug, [facility] [address] [id number] [place] [address] Aug, [facility] [address] [id number] [place] [address] Aug, [facility] [address] [id number] [place] [address] Aug, [facility] [address] [id number] [place] [address] 18 Aug, 2012 [facility] [id number] [place] [address] 18 Aug, 2013 [facility] [address] [facility] [id number] [place] [address] 17 Aug, 2013 [facility] [address] [facility] [id number] [place] [address] 14 Aug, 2013 [facility] [address] [facility] [id number] [place] [address] 14 Aug, 2013 [facility] [address] [facility] [id number] [place] [address] 01 Aug, 2013 [facility] [address] [id number] [place] [address] 20 Jul, 2013 [facility] [address] [id number] [place] [address] 19 Jul, 2013 [facility] [address] [id number] [place] [address] 18 Jul, 2013 [facility] [address] [facility] [id number] [place] [address] 11 Jul, 2013 [facility] [address] [id number] [place] [address] Jul, [facility] [address] [id number] [place] [address] 28 Jun, 2013 [facility] [address] [facility] [id number] [place] [address] Jun, [facility] [address] [facility] [id number] [place] [address] Jun, [facility] [address] [id number] [place] [address] 15 Jun, 2013 [facility] [address] [facility] [id number] [place] [address] 14 Jun, 2013 [facility] [address] [id number] [place] [address] Jun, [facility] [address] [id number] [place] [address] Jun, [facility] [address] [facility] [id number] [place] [address] Jun, [facility] [address] [facility] [id number] [place] [address] Jun, [facility] [address] [id number] [place] [address] Jun, [facility] [address] [facility] [id number] [place] [address] May, [facility] [address] [id number] [place] [address] May, [facility] [address] [id number] [place] [address] May, [facility] [address] [id number] [place] [address] May, [facility] [address] [id number] [place] [address] May, [facility] [address] [id number] [place] [address] May, [facility] [address] [id number] [place] [address] May, [facility] [address] [id number] [place] [address] May, [facility] [address] [id number] [place] [address] May, [facility] [address] [facility] [id number] [place] [address] Apr, [facility] [address] [id number] [place] [address] Apr, [facility] [address] [id number] [place] [address] Apr, [facility] [address] [id number] [place] [address] Apr, [facility] [address] [id number] [place] [address] Apr, [facility] [address] [id number] [place] [address] Apr, [facility] [address] [id number] [place] [address] Apr, [facility] [address] [id number] [place] [address] March, [facility] [address] [id number] [place] [address] Feb, [facility] [address] [id number] [place] [address] Feb, [facility] [address] [id number] [place] [address] Feb, [facility] [address] [id number] [place] [address] Jan, [facility] [address] [id number] [place] [address] Jan, [facility] [address] [id number] [place] [address] Jan, [facility] [address] [id number] [place] [address] Jan, [facility] [address] [id number] [place] [address] Jan, [facility] [address] [id number] [place] [address] 08 Jan, 2013 [facility] [address] [id number] [place] [address] 07 Jan, 2013 [facility] [address] [id number] [place] [address] Jan, [facility] [address] [id number] [place] [address] Dec, [facility] [address] [id number] [place] [address] 25 Dec, 2012 [facility] [address] [id number] [place] [address] Dec, [facility] [address] [id number] [place] [address] Dec, [facility] [address] [id number] [place] [address] 07 Dec, 2012 [facility] [address] [id number] [place] [address] 06 Dec, 2012 [facility] [address] [id number] [place] [address] 05 Dec, 2012 [facility] [address] [id number] [place] [address] Nov, [facility] [address] [id number] [place] [address] Nov, [facility] [address] [id number] [place] [address] Nov, [facility] [address] [id number] [place] [address] Nov, [facility] [address] [id number] [place] [address] Nov, [facility] [address] [id number] [place] [address] Nov, [facility] [address] [id number] [place] [address] Nov, [facility] [address] [id number] [place] [address] Oct, [facility] [address] [id number] [place] [address] Oct, [facility] [address] [id number] [place] [address] Oct, [facility] [address] [id number] [place] [address] Oct, [facility] [address] [id number] [place] [address] Oct, [facility] [address] [id number] [place] [address] Oct, [facility] [address] [id number] [place] [address] Oct, [facility] [address] [id number] [place] [address] Oct, [facility] [address] [id number] [place] [address] Oct, [facility] [address] [id number] [place] [address] Oct, [facility] [address] [id number] [place] [address] Oct, [facility] [address] [id number] [place] [address] Oct, [facility] [address] [id number] [place] [address] Sep, [facility] [address] [id number] [place] [address] Sep, [facility] [address] [id number] [place] [address] Sep, [facility] [address] [id number] [place] [address] Sep, [facility] [address] [id number] [place] [address] Sep, [facility] [address] [id number] [place] [address] Sep, [facility] [address] [id number] [place] [address] Sep, [facility] [address] [id number] [place] [address] Sep, [facility] [address] [id number] [place] [address] Sep, [facility] [address] [id number] [place] [address] Sep, [facility] [address] [id number] [place] [address] Sep, [facility] [address] [id number] [place] [address] Aug, [facility] [address] [id number] [place] [address] Aug, [facility] [address] [id number] [place] [address] Aug, [facility] [address] [id number] [place] [address] Aug, [facility] [address] [id number] [place] [address] Aug, [facility] [address] [id number] [place] [address] Aug, [facility] [address] [id number] [place] [address] Aug, [facility] [address] [id number] [place] [address] Aug, [facility] [address] [id number] [place] [address] Aug, [facility] [address] [id number] [place] [address] Aug, [facility] [address] [id number] [place] [address] 22 Jul, 2012 [facility] [address] [id number] [place] [address] 20 Jul, 2012 [facility] [address] [id number] [place] [address] 10 Jul, 2011 [facility] [address] [id number] [place] [address] Jul, [facility] [address] [id number] [place] [address] Jun, [facility] [address] [id number] [place] [address] Jun, [facility] [address] [id number] [place] [address] Jun, [facility] [address] [id number] [place] [address] Jun, [facility] [address] [id number] [place] [address] Jun, [facility] [address] [id number] [place] [address] Jun, [facility] [address] [id number] [place] [address] Jun, [facility] [address] [id number] [place] [address] May, [facility] [address] [id number] [place] [address] May, [facility] [address] [id number] [place] [address] May, [facility] [address] [id number] [place] [address] May, [facility] [address] [id number] [place] [address] May, [facility] [address] [id number] [place] [address] Apr, [facility] [address] [id number] [place] [address] Apr, [facility] [address] [id number] [place] [address] Apr, [facility] [address] [id number] [place] [address] Apr, [facility] [address] [id number] [place] [address] Apr, [facility] [address] [id number] [place] [address] March, [facility] [address] [id number] [place] [address] March, [facility] [address] [id number] [place] [address] March, [facility] [address] [id number] [place] [address] March, [facility] [address] [facility] [id number] [place] [address] March, [facility] [address] [id number] [place] [address] March, [facility] [address] [id number] [place] [address] March, [facility] [address] [id number] [place] [address] March, [facility] [address] [id number] [place] [address] March, [facility] [address] [id number] [place] [address] March, [facility] [address] [id number] [place] [address] Feb, [facility] [address] [id number] [place] [address] Feb, [facility] [address] [id number] [place] [address] Feb, [facility] [address] [id number] [place] [address] Feb, [facility] [address] [id number] [place] [address] Feb, [facility] [address] [id number] [place] [address] Feb, [facility] [address] [id number] [place] [address] Feb, [facility] [address] [id number] [place] [address] Feb, [facility] [address] [id number] [place] [address] Feb, [facility] [address] [id number] [place] [address] Jan, [facility] [address] [id number] [place] [address] Jan, [facility] [address] [id number] [place] [address] Jan, [facility] [address] [id number] [place] [address] Jan, [facility] [address] [id number] [place] [address] Dec, [facility] [address] [id number] [place] [address] Dec, [facility] [address] [id number] [place] [address] Nov, [facility] [address] [id number] [place] [address] Nov, [facility] [address] [id number] [place] [address] Nov, [facility] [address] [id number] [place] [address] Nov, [facility] [address] [id number] [place] [address] Nov, [facility] [id number] [place] [address] Oct, [facility] [address] [id number] [place] [address] Oct, [facility] [id number] [place] [address] Oct, [facility] [address] [id number] [place] [address] Oct, [facility] [address] [id number] [place] [address] Oct, [facility] [address] [id number] [place] [address] Oct, [facility] [address] [id number] [place] [address] Oct, [facility] [address] [id number] [place] [address] Oct, [facility] [id number] [place] [address] Sep, IMMUNIZATIONS No Known Immunizations SOCIAL HISTORY [...] discharged 11/27/2017 11/26/2017 Hospitalization History ED [place]- Went Unrepsonsive, Hit head 2017 Hospitalization History ED [place]- Back Pain 05/05/ 8
--- OUTSIDE RECORDS SUMMARY | 2020-06-18 15:02 | XMS REPORT ---
Author Author Sanjuanita Abdul Doctor Organization [facility] Address Unknown Phone Unavailable Care Team Providers Care Health Technical Writer Name Role Phone Migration, Doctor Unavailable Unavailable PROBLEMS Type Condition ICD9-CM Code NTM11-RB Code Onset Dates Condition S tatus SNOMED Code Problem Coronary artery disease I25.10 Active 26977546 Problem Hypertension I10 Active 8231150 3 Problem Other chronic pain G89.29 Active 8 7071552 Problem Hyperlipidemia E78.5 Active 21253 004 Problem Type 2 diabetes mellitus wit hout complication, without long-term current use of insulin E11.9 Active 128101780 Problem Low back pain M54.5 Active 596082 009 Problem Pharyngeal dysphagia R13.13 Active 26934167287579 Problem Anxiety F41.9 Active 60514108 Problem Peripheral vascular disease I73.9 Ac tive 848949334 Problem Suprapubic catheter Z93.59 Active 698596748 Problem Reactive depression F32.9 Active 62571429 Problem Neurogenic bladder N31.9 Active 3 92236273 Problem Ventral hernia without obstruction or gangrene K43 .9 Active 494636767 Problem Insomnia G47.00 Active 571343142 Problem Paroxysmal atrial fibrillation I48.0 Active 107545246 Problem Postmenopausal atrophic vaginitis 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 Active 29678584 Problem Encounter for suprapubic catheter care Z43.5 Active 481264237 ALLERGIES No Information ENCOUNTERS Encounter Location Date Diagnosis [place] [address] [id number] [place] [address] Nov, Hypertension I10 Via [facility] [address] [place] [id number] Nov, Pneumonia of both lungs due to infectiou s organism, unspecified part of lung J18.9 and Suprapubic catheter Z93.59 [place] [address] [id number] [place] [address] Nov, Hypertension I10 and Reactive depression F32.9 [place] [address] [id number] [place] [address] Oct, Strain of right shoulder, subsequent enc ounter S46.911D and Anxiety F41.9 [place] [address] [id number] [place] [address] Oct, Via [facility] [address] [place] [id number] Oct, Suprapubic catheter Z93.59 and Candidias is, intertriginous B37.2 [place] [address] [id number] [place] [address] Oct, Suprapubic catheter Z93.59 [place] [address] [id number] [place] [address] Oct, Anxiety F41.9 and Strain of right should er, subsequent encounter S46.911D [place] [address] [id number] [place] [address] Sep, [place] [address] [id number] [place] [address] Sep, [place] [address] [id number] [place] [address] Sep, Via [facility] [address] [place] [id number] Sep, Suprapubic catheter Z93.59 [place] [address] [id number] [place] [address] Sep, Anxiety F41.9 and Strain of right should er, subsequent encounter S46.911D [place] [address] [id number] [place] [address] Aug, [facility] [address] [id number] [place] [address] Aug, [facility] [address] [id number] [place] [address] Aug, Anxiety F41.9 and Strain of right should er, subsequent encounter S46.911D [facility] [address] [place] [id number] Aug, Suprapubic catheter Z93.59 [place] [address] [address] Jul, Strain of right shoulder, subsequent enc ounter S46.911D and Anxiety F41.9 [place] [address] [address] Jul, Anxiety F41.9 [place] [address] [address] Jun, [place] [address] [address] Jun, [place] [address] [address] Jun, [place] [address] [address] Jun, Strain of right shoulder, subsequent enc ounter S46.911D [place] [address] [address] Jun, Strain of right shoulder, subsequent enc ounter S46.911D [place] [address] [address] Jun, Anxiety F41.9 Via [facility] [address] [place] [id number] Jun, Neurogenic bladder N31.9 and Anxiety F41 .9 Via [facility] [address] [place] [id number] May, Anxiety F41.9 [place] [address] [address] May, Dysuria R30.0 [place] [address] [address] May, Strain of right shoulder, subsequent enc ounter S46.911D and Anxiety F41.9 [place] [address] [address] 27 Apr, 2019 Via [facility] [facility] [address] [place] [id number] 18 Apr, 2019 Strain of right shoulder, subsequent enc ounter S46.911D [place] [address] [address] 14 Apr, 2019 Strain of right shoulder, subsequent enc ounter S46.911D and Anxiety F41.9 Via [facility] [employer] [address] [place] [id number] 13 Apr, 2019 Type 2 diabetes mellitus without complic ation, without long-term current use of insulin E11.9 and Neurogenic bladder N31.9 [facility] [address] [place] [id number] 11 Apr, 2019 Strain of right shoulder, subsequent enc ounter S46.911D ; History of GI bleed Z87.19 ; Neurogenic bladder N31.9 and Reactive depression F32.9 [place] [address] [address] 10 Apr, 2019 Acute pain of left shoulder M25.512 [place] [address] [address] 07 Apr, 2019 [place] [address] [address] 06 Apr, 2019 Anxiety F41.9 and Other chronic pain G89 .29 Via [facility] [employer] [address] [place] [id number] March, Gastrointestinal hemorrhage associated w ith acute gastritis K29.01 [place] [address] [address] March, [facility] [address] [place] [id number] March, Bronchitis J40 [place] [address] [address] March, Cough R05 [place] [address] [address] March, Other chronic pain G89.29 [facility] [address] [address] March, Anxiety F41.9 [facility] [address] [address] March, [facility] [address] [address] Feb, Other chronic pain G89.29 [facility] [address] [address] Feb, Anxiety F41.9 [facility] [address] [address] Feb, Other chronic pain G89.29 Via [facility] [address] [place] [id number] Feb, Neurogenic bladder N31.9 and Suprapubic catheter Z93.59 [facility] [address] [address] Jan, Anxiety F41.9 [facility] [address] [address] Dec, Anxiety F41.9 [facility] [address] [address] Dec, Other chronic pain G89.29 and Anxiety F4 1.9 [facility] [address] [address] Dec, Via [facility] [address] [place] [id number] Dec, Neurogenic bladder N31.9 and Suprapubic catheter Z93.59 [facility] [address] [address] Nov, Other chronic pain G89.29 and Anxiety F4 1.9 [facility] [address] [address] Nov, Via [facility] [address] [place] [id number] Nov, Suprapubic catheter Z93.59 [facility] [address] [address] Oct, Other chronic pain G89.29 and Anxiety F4 1.9 [facility] [address] [address] Oct, [facility] [address] [address] Oct, Suprapubic catheter Z93.59 [place] [address] [address] Oct, Via [facility] [address] [place] [id number] Oct, [place] [address] [address] Oct, Anxiety F41.9 [place] [address] [address] Oct, Anxiety F41.9 Via [facility] [address] [place] [id number] Oct, Other chronic pain G89.29 [place] [address] [address] Sep, Other chronic pain G89.29 Via [facility] [address] [place] [id number] Sep, Suprapubic catheter Z93.59 and Cervicalg ia M54.2 [facility] [address] [address] Sep, [facility] [address] [address] Sep, [place] [address] [address] Sep, Via [facility] [address] [place] [address] Aug, Cystitis N30.90 [place] [address] [address] Aug, [place] [address] [address] Aug, Other chronic pain G89.29 [place] [address] [address] Aug, Via [facility] [address] [place] [id number] Aug, Encounter for suprapubic catheter care Z 43.5 [place] [address] [address] Jul, Via [facility] [address] [place] [id number] Jul, [place] [address] [address] Jul, Other chronic pain G89.29 [place] [address] [address] Jul, [place] [address] [address] Jul, Via [facility] [address] [place] [id number] Jun, Postmenopausal atrophic vaginitis N95.2 [place] [address] [address] Jun, Other chronic pain G89.29 [place] [address] [address] Jun, [facility] [address] [place] [id number] May, Anxiety F41.9 ; Type 2 diabetes mellitus without complication, without long-term current use of insulin E11.9 ; Hypertension I10 ; Low back pain M54.5 ; Paroxysmal atrial fibrillation I48.0 and 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 [place] [address] [address] May, Other chronic pain G89.29 Via [facility] [address] [place] [id number] May, Low back pain M54.5 [facility] [address] [address] May, [facility] [address] [address] Apr, Other chronic pain G89.29 [facility] [address] [address] Apr, [facility] [address] [address] Apr, Via [facility] [address] [place] [id number] Apr, Closed compression fracture of L3 lumbar vertebra with routine healing, subsequent encounter S32.030D [facility] [address] [place] [id number] Apr, Low back pain M54.5 Via [facility] [address] [place] [id number] Apr, Coccydynia M53.3 [facility] [address] [address] March, [facility] [address] [address] March, Other chronic pain G89.29 [facility] [address] [address] March, [facility] [address] [address] March, [facility] [address] [address] Feb, [facility] [address] [address] Feb, Other chronic pain G89.29 [facility] [address] [place] [id number] Feb, Other chronic pain G89.29 and Anxiety F4 1.9 [place] [address] [place] [id number] [place] [address] Feb, [place] [address] [address] Jan, [place] [address] [address] Jan, [place] [address] [address] Jan, [place] [address] [address] Jan, [place] [address] [address] Dec, Via [employer] [facility] [employer] [address] [place] [id number] Dec, Peripheral vascular disease I73.9 ; 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 ; Other chronic pain G89.29 ; Anxiety F41.9 ; Reactive depression F32.9 ; Insomnia G47.00 and Type 2 diabetes mellitus without complication, without long-term current use of insulin E11.[address] [id number] [place] [address] Nov, [place] [address] [id number] [place] [id number] Nov, Anxiety F41.9 [place] [address] [address] Nov, [place] [address] [id number] [place] [address] Nov, Anxiety F41.9 [facility] [employer] [facility] [address] [place] [id number] Nov, Status post surgery Z98.890 ; Confused R 41.0 ; Anxiety F41.9 and Other chronic pain G89.29 [place] [address] [id number] [place] [id number] Nov, Other chronic pain G89.29 [facility] [address] [place] [id number] [place] [address] Oct, [facility] [address] [id number] [place] [id number] Oct, Other chronic pain G89.29 [facility] [address] [address] Oct, Anxiety F41.9 [facility] [address] [id number] [place] [id number] Sep, Other chronic pain G89.29 [facility] [address] [id number] [place] [id number] Sep, Via [facility] [address] [place] [id number] Aug, Dysuria R30.0 and Anxiety F41.9 [facility] [address] [place] [id number] [place] [address] Aug, [facility] [address] [id number] [place] [id number] Aug, Other chronic pain G89.29 [facility] [address] [id number] [place] [address] Jul, Other chronic pain G89.29 [facility] [address] [id number] [place] [id number] Jun, [facility] [address] [id number] [place] [id number] Jun, Other chronic pain G89.29 [facility] [address] [address] Jun, [facility] [address] [address] May, Other chronic pain G89.29 [facility] [address] [address] Apr, Other chronic pain G89.29 [facility] [employer] [address] [place] [id number] Apr, Reactive depression F32.9 and Pharyngeal dysphagia R13.13 [place] [address] [address] Apr, Urinary tract infection without hematuri a, site unspecified N39.0 [place] [address] [address] March, Other chronic pain G89.29 [place] [address] [address] Feb, Other chronic pain G89.29 [place] [address] [address] Feb, [place] [address] [id number] [place] [id number] Feb, Via [facility] [address] [place] [id number] Feb, Dysuria R30.0 and Ventral hernia without obstruction or gangrene K43.9 [place] [address] [address] Jan, Other chronic pain G89.29 [place] [address] [id number] [place] [address] Dec, Other chronic pain G89.29 [place] [address] [address] Nov, Other chronic pain G89.29 [facility] [address] [place] [id number] Nov, Lymphadenitis I88.9 [place] [address] [address] Nov, Other chronic pain G89.29 [place] [address] [address] Nov, [facility] [address] [id number] [place] [id number] Nov, Other chronic pain G89.29 [facility] [employer] [address] [place] [id number] Oct, Low back pain M54.5 ; Hypertension I10 a nd Type 2 diabetes mellitus without complication, without long-term current use of insulin E11.9 [facility] [id number] [place] [address] Oct, [facility] [address] [address] [place] [address] Oct, [facility] [address] [address] Oct, [facility] [address] [id number] [place] [address] Oct, [facility] [address] [address] Sep, [facility] [id number] [place] [address] Sep, [facility] [address] [place] [address] Aug, Other chronic pain G89.29 [facility] [id number] [place] [address] Jul, [facility] [address] [place] [address] Jul, [facility] [id number] [place] [address] Jul, [facility] [address] [address] Jun, [facility] [address] [place] [address] Jun, [facility] [address] [place] [address] Jun, Low back pain M54.5 ; Other chronic pain G89.29 and Coronary artery disease I25.10 [facility] [id number] [place] [address] Jun, [facility] [address] [facility] [place] [address] May, [facility] [address] [place] [address] May, [facility] [address] [address] May, Other chronic pain G89.29 [facility] [id number] [place] [address] May, [facility] [id number] [place] [address] Apr, [facility] [address] [address] Apr, Acute cystitis without hematuria N30.00 [facility] [address] [place] [address] 16 Apr, 2016 Acute cystitis without hematuria N30.00 ; Coronary artery disease I25.10 ; Low back pain M54.5 and Other chronic pain G89.29 [facility] [id number] [place] [address] Apr, Other chronic pain G89.29 [facility] [address] [place] [address] March, Other chronic pain G89.29 [facility] [id number] [place] [address] Feb, [facility] [address] [address] Feb, Arthritis M19.90 [facility] [id number] [place] [address] Feb, [facility] [address] [address] Jan, [facility] [address] [address] Jan, [facility] [address] [address] Jan, Other chronic pain G89.29 [facility] [address] [address] Jan, Hypertension I10 ; Coronary artery disea se I25.10 and Insomnia G47.00 [facility] [address] [address] Jan, [facility] [address] [address] Dec, Right hip pain M25.551 [facility] [address] [address] Dec, [facility] [address] [address] Dec, [facility] [address] [address] Dec, [facility] [address] [address] Dec, Other chronic pain G89.29 [facility] [address] [address] Dec, [facility] [address] [address] Nov, [facility] [address] [address] Nov, Other chronic pain G89.29 [facility] [address] [address] Nov, Right hip pain M25.551 and Coronary karissa ry disease I25.10 [facility] [address] [address] Nov, Other chronic pain G89.29 [facility] [address] [address] Oct, [facility] [address] [address] Oct, [facility] [address] [address] Sep, [facility] [address] [address] Sep, [facility] [address] [address] Aug, [facility] [address] [address] Aug, Hypertension I10 ; Coronary artery disea se I25.10 and Arthritis M19.90 [facility] [address] [address] Jun, [facility] [address] [address] Jun, Essential hypertension, benign 401.1 ; O ther chronic pain 338.29 and Chronic airway obstruction, not elsewhere classified 496 [facility] [address] [address] Jun, [facility] [address] [address] Jun, [facility] [address] [address] Jun, [facility] [address] [address] May, [facility] [address] [address] May, [facility] [address] [address] Apr, [facility] [address] [address] Apr, [facility] [address] [id number] [place] [address] Apr, [facility] [address] [id number] [place] [address] March, [facility] [address] [id number] [place] [address] March, [facility] [address] [id number] [place] [address] March, [facility] [address] [id number] [place] [address] March, [facility] [address] [id number] [place] [address] March, Sialadenitis 527.2 [facility] [address] [id number] [place] [address] Feb, [facility] [address] [id number] [place] [address] Feb, [facility] [address] [id number] [place] [address] Feb, [facility] [address] [id number] [place] [address] Feb, [facility] [address] [id number] [place] [address] Feb, [facility] [address] [id number] [place] [address] Jan, [facility] [address] [id number] [place] [address] Jan, [facility] [address] [id number] [place] [address] Jan, [facility] [address] [id number] [place] [address] Jan, [facility] [address] [id number] [place] [address] 06 Jan, 2015 [facility] [address] [id number] [place] [address] Jan, [facility] [address] [id number] [place] [address] Dec, [facility] [address] [id number] [place] [address] Dec, [facility] [address] [id number] [place] [address] Dec, [facility] [address] [id number] [place] [address] Dec, [facility] [address] [id number] [place] [address] Dec, [facility] [address] [id number] [place] [address] Dec, [facility] [address] [id number] [place] [address] Nov, [facility] [address] [id number] [place] [address] Nov, [facility] [address] [id number] [place] [address] Nov, [facility] [address] [id number] [place] [address] Nov, [facility] [address] [id number] [place] [address] Nov, [facility] [address] [id number] [place] [address] Nov, [facility] [address] [id number] [place] [address] Nov, [facility] [address] [id number] [place] [address] Nov, [facility] [address] [id number] [place] [address] Nov, [facility] [address] [id number] [place] [address] Nov, [facility] [address] [id number] [place] [address] Nov, [facility] [address] [id number] [place] [address] Nov, [facility] [address] [id number] [place] [address] Nov, [facility] [place] [facility] [address] [id number] [place] [address] Nov, [facility] [place] [facility] [address] [id number] [place] [address] Oct, [facility] [place] [facility] [address] [id number] [place] [address] Oct, [facility] [place] [facility] [address] [id number] [place] [address] Oct, [facility] [place] [facility] [address] [id number] [place] [address] Oct, [facility] [place] [facility] [address] [id number] [place] [address] Oct, [facility] [place] [facility] [address] [id number] [place] [address] Oct, [facility] [place] [facility] [address] [id number] [place] [address] Oct, [facility] [place] [facility] [address] [id number] [place] [address] Oct, [facility] [place] [facility] [address] [id number] [place] [address] Oct, [facility] [place] [facility] [address] [id number] [place] [address] Sep, [facility] [place] [facility] [address] [id number] [place] [address] Sep, [facility] [place] [facility] [address] [id number] [place] [address] Sep, [facility] [place] [facility] [address] [id number] [place] [address] Sep, [facility] [place] [facility] [address] [facility] [id number] [place] [address] Sep, [facility] [place] [facility] [address] [id number] [place] [address] Sep, [facility] [place] [facility] [address] [id number] [place] [address] Sep, [facility] [place] [facility] [address] [id number] [place] [address] Sep, [facility] [place] [facility] [address] [facility] [id number] [place] [address] Sep, [facility] [place] [facility] [address] [id number] [place] [address] Sep, [facility] [place] [facility] [address] [id number] [place] [address] Sep, [facility] [place] [facility] [address] [id number] [place] [address] Sep, [facility] [place] [facility] [address] [id number] [place] [address] Aug, [facility] [place] [facility] [address] [id number] [place] [address] Aug, [facility] [place] [facility] [address] [id number] [place] [address] Aug, [facility] [place] [facility] [address] [id number] [place] [address] Aug, [facility] [place] [facility] [address] [id number] [place] [address] Aug, [facility] [place] [facility] [address] [id number] [place] [address] Aug, [facility] [place] [facility] [address] [id number] [place] [address] Aug, [facility] [place] [facility] [address] [id number] [place] [address] Aug, [facility] [place] [facility] [address] [id number] [facility] [address] 30 Jul, 2013 [facility] [place] [facility] [address] [id number] [facility] [place] [address] 30 Jul, 2013 [facility] [place] [facility] [address] [facility] [id number] [place] [address] 30 Jul, 2013 [facility] [place] [facility] [address] [id number] [place] [address] 30 Jul, 2013 [facility] [place] [facility] [address] [facility] [id number] [place] [address] 25 Jul, 2013 [facility] [place] [facility] [address] [id number] [facility] [place] [address] 25 Jul, 2013 [facility] [place] [facility] [address] [id number] [place] [address] 15 Jul, 2014 [facility] [place] [facility] [address] [id number] [place] [address] 15 Jul, 2014 [facility] [place] [facility] [address] [id number] [place] [address] Jul, [facility] [place] [facility] [address] [id number] [place] [address] Jul, [facility] [place] [facility] [address] [id number] [place] [address] Jun, [facility] [place] [facility] [address] [id number] [place] [address] Jun, [facility] [place] [facility] [address] [id number] [place] [address] Jun, [facility] [place] [facility] [address] [id number] [place] [address] Jun, [facility] [place] [facility] [address] [id number] [place] [address] Jun, [facility] [place] [facility] [address] [id number] [place] [address] Jun, [facility] [place] [facility] [address] [id number] [place] [address] Jun, [facility] [place] [facility] [address] [id number] [place] [address] Jun, [facility] [place] [facility] [address] [id number] [place] [address] Jun, [facility] [place] [facility] [address] [facility] [id number] [place] [address] Jun, [facility] [place] [facility] [address] [id number] [place] [address] Jun, [facility] [place] [facility] [address] [facility] [id number] [place] [address] Jun, [facility] [place] [facility] [address] [id number] [place] [address] Jun, [facility] [place] [facility] [address] [id number] [place] [address] Jun, [facility] [place] [facility] [address] [id number] [place] [address] Jun, [facility] [place] [facility] [address] [id number] [place] [address] Jun, [facility] [place] [facility] [address] [id number] [place] [address] Jun, [facility] [place] [facility] [address] [id number] [place] [address] Jun, [facility] [place] [facility] [address] [id number] [place] [address] Jun, [facility] [place] [facility] [address] [id number] [place] [address] Jun, [facility] [place] [facility] [address] [id number] [place] [address] Jun, [facility] [place] [facility] [address] [id number] [place] [address] Jun, [facility] [place] [facility] [address] [id number] [place] [address] May, [facility] [place] [facility] [address] [id number] [place] [address] May, 2013 [facility] [place] [facility] [address] [id number] [facility] [place] [address] May, 2013 [facility] [place] [facility] [address] [id number] [place] [address] May, [facility] [place] [facility] [address] [facility] [id number] [facility] [place] [address] May, 2013 [facility] [place] [facility] [address] [id number] [place] [address] May, 2013 [facility] [place] [facility] [address] [facility] [id number] [place] [address] May, 2013 [facility] [place] [facility] [address] [id number] [place] [address] May, 2013 [facility] [place] [facility] [address] [facility] [id number] [facility] [place] [address] May, 2013 [facility] [place] [facility] [address] [id number] [facility] [place] [address] May, [facility] [place] [facility] [address] [facility] [id number] [facility] [place] [address] May, [facility] [place] [facility] [address] [facility] [id number] [facility] [place] [address] May, [facility] [place] [facility] [address] [facility] [id number] [facility] [place] [address] May, [facility] [place] [facility] [address] [id number] [place] [address] Apr, [facility] [place] [facility] [address] [facility] [id number] [facility] [place] [address] Apr, [facility] [place] [facility] [address] [id number] [facility] [place] [address] Apr, [facility] [place] [facility] [address] [facility] [id number] [place] [address] Apr, [facility] [place] [facility] [address] [id number] [facility] [place] [address] Apr, [facility] [place] [facility] [address] [facility] [id number] [place] [address] Apr, [facility] [place] [facility] [address] [id number] [facility] [place] [address] Apr, [facility] [place] [facility] [address] [facility] [id number] [place] [address] Apr, [facility] [place] [facility] [address] [id number] [place] [address] Apr, [facility] [place] [facility] [address] [id number] [place] [address] March, [facility] [place] [facility] [address] [facility] [id number] [place] [address] March, [facility] [place] [facility] [address] [id number] [place] [address] March, [facility] [place] [facility] [address] [id number] [place] [address] March, [facility] [place] [facility] [address] [id number] [place] [address] March, [facility] [place] [facility] [address] [id number] [place] [address] March, [facility] [place] [facility] [address] [id number] [place] [address] March, [facility] [place] [facility] [address] [id number] [place] [address] March, [facility] [place] [facility] [address] [id number] [place] [address] March, [facility] [place] [facility] [address] [facility] [id number] [place] [address] March, [facility] [place] [facility] [address] [id number] [place] [address] March, [facility] [place] [facility] [address] [id number] [place] [address] March, [facility] [place] [facility] [address] [id number] [place] [address] March, [facility] [place] [facility] [address] [id number] [place] [address] March, [facility] [place] [facility] [address] [id number] [place] [address] March, [facility] [place] [facility] [address] [id number] [place] [address] March, [facility] [place] [facility] [address] [id number] [place] [address] March, [facility] [place] [facility] [address] [id number] [place] [address] March, [facility] [place] [facility] [address] [id number] [place] [address] March, [facility] [place] [facility] [address] [id number] [place] [address] March, [facility] [place] [facility] [address] [id number] [place] [address] Feb, [facility] [place] [facility] [address] [id number] [place] [address] Feb, [facility] [place] [facility] [address] [id number] [place] [address] Feb, [facility] [place] [facility] [address] [id number] [place] [address] Feb, [facility] [place] [facility] [address] [id number] [place] [address] Feb, [facility] [place] [facility] [address] [id number] [place] [address] Feb, [facility] [place] [facility] [address] [id number] [place] [address] Feb, [facility] [place] [facility] [address] [id number] [place] [address] Feb, [facility] [place] [facility] [address] [id number] [place] [address] Jan, [facility] [place] [facility] [address] [id number] [place] [address] Jan, [facility] [place] [facility] [address] [facility] [id number] [facility] [place] [address] Jan, [facility] [place] [facility] [address] [facility] [id number] [place] [address] 24 Jan, 2014 [facility] [place] [facility] [address] [facility] [id number] [facility] [place] [address] Jan, [facility] [place] [facility] [address] [facility] [id number] [place] [address] Jan, [facility] [place] [facility] [address] [facility] [id number] [place] [address] Jan, [facility] [place] [facility] [address] [id number] [place] [address] Jan, [facility] [place] [facility] [address] [id number] [facility] [place] [address] Jan, [facility] [place] [facility] [address] [id number] [facility] [place] [address] Jan, [facility] [place] [facility] [address] [facility] [id number] [place] [address] 27 Dec, 2013 [facility] [place] [facility] [address] [id number] [facility] [place] [address] Dec, [facility] [place] [facility] [address] [id number] [facility] [place] [address] Dec, [facility] [place] [facility] [address] [id number] [facility] [place] [address] 2013 [facility] [place] [facility] [address] [facility] [id number] [facility] [address] 2013 [facility] [place] [facility] [address] [id number] [place] [address] 13 Dec, 2013 [facility] [place] [facility] [address] [id number] [facility] [place] [address] 12 Dec, 2013 [facility] [place] [facility] [address] [id number] [facility] [place] [address] Dec, [facility] [place] [facility] [address] [id number] [place] [address] 29 Nov, 2013 [facility] [place] [facility] [address] [id number] [place] [address] Nov, [facility] [place] [facility] [address] [id number] [place] [address] Nov, [facility] [place] [facility] [address] [id number] [place] [address] Nov, [facility] [place] [facility] [address] [id number] [place] [address] Nov, [facility] [place] [facility] [address] [id number] [place] [address] Nov, [facility] [place] [facility] [address] [id number] [place] [address] Nov, [facility] [place] [facility] [address] [id number] [place] [address] Nov, [facility] [place] [facility] [address] [id number] [place] [address] Nov, [facility] [place] [facility] [address] [id number] [place] [address] Nov, [facility] [place] [facility] [address] [id number] [place] [address] Nov, [facility] [place] [facility] [address] [id number] [place] [address] Nov, [facility] [place] [facility] [address] [id number] [place] [address] Nov, [facility] [place] [facility] [address] [id number] [place] [address] Oct, [facility] [place] [facility] [address] [id number] [place] [address] Oct, [facility] [place] [facility] [address] [id number] [place] [address] Oct, [facility] [place] [facility] [address] [id number] [place] [address] Oct, [facility] [address] [id number] [place] [address] Oct, [facility] [place] [facility] [address] [id number] [place] [address] Oct, [facility] [place] [facility] [address] [id number] [place] [address] Oct, [facility] [place] [facility] [address] [id number] [place] [address] Oct, [facility] [place] [facility] [address] [id number] [place] [address] Oct, [facility] [place] [facility] [address] [id number] [place] [address] Oct, [facility] [place] [facility] [address] [id number] [place] [address] Oct, [facility] [place] [facility] [address] [id number] [place] [address] Oct, [facility] [place] [facility] [address] [id number] [place] [address] Oct, [facility] [place] [facility] [address] [id number] [place] [address] Oct, [facility] [place] [facility] [address] [id number] [place] [address] 14 Sep, 2013 [facility] [place] [facility] [address] [id number] [place] [address] Sep, [facility] [place] [facility] [address] [id number] [place] [address] 05 Sep, 2013 [facility] [place] [facility] [address] [id number] [place] [address] 05 Sep, 2013 [facility] [place] [facility] [address] [id number] [place] [address] Sep, [facility] [place] [facility] [address] [id number] [place] [address] Sep, [facility] [place] [facility] [address] [id number] [place] [address] Sep, [facility] [place] [facility] [address] [facility] [id number] [place] [address] Sep, [facility] [place] [facility] [address] [id number] [place] [address] Sep, [facility] [place] [facility] [address] [id number] [place] [address] Sep, [facility] [place] [facility] [address] [id number] [place] [address] Aug, [facility] [place] [facility] [address] [facility] [id number] [place] [address] Aug, [facility] [place] [facility] [address] [id number] [place] [address] Aug, [facility] [place] [facility] [address] [id number] [place] [address] Aug, [facility] [place] [facility] [address] [id number] [place] [address] Aug, [facility] [place] [facility] [address] [id number] [place] [address] Aug, [facility] [place] [facility] [address] [id number] [place] [address] Aug, [facility] [place] [facility] [address] [id number] [place] [address] Aug, [facility] [place] [facility] [address] [id number] [place] [address] Aug, [facility] [address] [facility] [id number] [place] [address] Aug, [facility] [address] [id number] [place] [address] Aug, [facility] [address] [id number] [place] [address] Aug, [facility] [address] [id number] [place] [address] Aug, [facility] [address] [id number] [place] [address] 18 Aug, 2013 [facility] [address] [facility] [id number] [place] [address] 17 Aug, 2013 [facility] [address] [facility] [id number] [place] [address] 14 Aug, 2013 [facility] [address] [id number] [place] [address] 14 Aug, 2013 [facility] [address] [facility] [id number] [place] [address] Aug, [facility] [address] [facility] [id number] [place] [address] 20 Jul, 2013 [facility] [address] [id number] [place] [address] 19 Jul, 2013 [facility] [address] [id number] [place] [address] 18 Jul, 2013 [facility] [address] [id number] [place] [address] Jul, [facility] [address] [facility] [id number] [place] [address] Jul, [facility] [address] [id number] [place] [address] 28 Jun, 2013 [facility] [address] [id number] [place] [address] Jun, [facility] [address] [id number] [place] [address] 23 Jun, 2013 [facility] [address] [facility] [id number] [place] [address] 15 Jun, 2013 [facility] [address] [id number] [place] [address] 14 Jun, 2013 [facility] [address] [id number] [place] [address] Jun, [facility] [address] [id number] [place] [address] Jun, [facility] [address] [id number] [place] [address] Jun, [facility] [address] [facility] [id number] [facility] [address] Jun, [facility] [address] [facility] [id number] [place] [address] Jun, [facility] [address] [id number] [place] [address] May, [facility] [address] [facility] [id number] [facility] [address] May, [facility] [address] [id number] [place] [address] May, [facility] [address] [id number] [place] [address] May, [facility] [address] [id number] [place] [address] May, [facility] [address] [id number] [place] [address] May, [facility] [address] [id number] [place] [address] May, [facility] [address] [id number] [place] [address] May, [facility] [address] [id number] [place] [address] May, [facility] [address] [facility] [id number] [place] [address] Apr, [facility] [address] [facility] [id number] [place] [address] Apr, [facility] [address] [id number] [place] [address] Apr, [facility] [address] [id number] [place] [address] Apr, [facility] [address] [id number] [place] [address] Apr, [facility] [address] [facility] [id number] [facility] [address] Apr, [facility] [address] [id number] [place] [address] Apr, [facility] [address] [id number] [place] [address] March, [facility] [address] [id number] [place] [address] Feb, [facility] [address] [id number] [place] [address] Feb, [facility] [address] [id number] [place] [address] Feb, [facility] [address] [id number] [place] [address] Jan, [facility] [address] [id number] [place] [address] Jan, [facility] [address] [id number] [place] [address] Jan, [facility] [address] [id number] [place] [address] Jan, [facility] [address] [id number] [place] [address] Jan, [facility] [address] [id number] [place] [address] Jan, [facility] [address] [id number] [place] [address] Jan, [facility] [address] [id number] [place] [address] Jan, [facility] [address] [id number] [place] [address] Dec, [facility] [address] [id number] [place] [address] Dec, [facility] [address] [id number] [place] [address] 13 Dec, 2012 [facility] [address] [id number] [place] [address] Dec, [facility] [address] [id number] [place] [address] 07 Dec, 2012 [facility] [address] [id number] [place] [address] Dec, [facility] [address] [id number] [place] [address] Dec, [facility] [address] [id number] [place] [address] Nov, [facility] [address] [id number] [place] [address] Nov, [facility] [id number] [place] [address] Nov, [facility] [address] [id number] [place] [address] Nov, [facility] [id number] [place] [address] Nov, [facility] [address] [id number] [place] [address] Nov, [facility] [address] [id number] [place] [address] Nov, [facility] [address] [id number] [place] [address] Oct, [facility] [address] [id number] [place] [address] Oct, [facility] [address] [id number] [place] [address] Oct, [facility] [address] [id number] [place] [address] Oct, [facility] [address] [id number] [place] [address] Oct, [facility] [address] [id number] [place] [address] Oct, [facility] [address] [id number] [place] [address] Oct, [facility] [address] [id number] [place] [address] Oct, [facility] [address] [id number] [place] [address] Oct, [facility] [address] [id number] [place] [address] Oct, [facility] [address] [id number] [place] [address] Oct, [facility] [address] [id number] [place] [address] Oct, [facility] [address] [id number] [place] [address] Sep, [facility] [address] [id number] [place] [address] Sep, [facility] [address] [id number] [place] [address] Sep, [facility] [address] [id number] [place] [address] Sep, [facility] [address] [id number] [place] [address] Sep, [facility] [address] [id number] [place] [address] Sep, [facility] [address] [id number] [place] [address] Sep, [facility] [address] [id number] [place] [address] Sep, [facility] [address] [id number] [place] [address] Sep, [facility] [address] [id number] [place] [address] Sep, [facility] [address] [id number] [place] [address] Sep, [facility] [address] [id number] [place] [address] Aug, [facility] [address] [id number] [place] [address] Aug, [facility] [address] [id number] [place] [address] Aug, [facility] [address] [id number] [place] [address] Aug, [facility] [address] [id number] [place] [address] Aug, [facility] [address] [id number] [place] [address] Aug, [facility] [address] [id number] [place] [address] Aug, [facility] [address] [id number] [place] [address] Aug, [facility] [address] [id number] [place] [address] Aug, [facility] [address] [id number] [place] [address] Aug, [facility] [address] [id number] [place] [address] Jul, [facility] [address] [id number] [place] [address] 20 Jul, 2012 [facility] [address] [id number] [place] [address] Jul, [facility] [address] [id number] [place] [address] 06 Jul, 2012 [facility] [address] [id number] [place] [address] Jun, [facility] [id number] [place] [address] Jun, [facility] [address] [id number] [place] [address] Jun, [facility] [address] [id number] [place] [address] Jun, [facility] [address] [id number] [place] [address] Jun, [facility] [address] [id number] [place] [address] Jun, [facility] [address] [id number] [place] [address] Jun, [facility] [address] [id number] [place] [address] May, [facility] [address] [id number] [place] [address] May, [facility] [address] [id number] [place] [address] May, [facility] [address] [id number] [place] [address] May, [facility] [address] [id number] [place] [address] May, [facility] [address] [id number] [place] [address] Apr, [facility] [address] [id number] [place] [address] Apr, [facility] [address] [id number] [place] [address] Apr, [facility] [address] [id number] [place] [address] Apr, [facility] [address] [id number] [place] [address] Apr, [facility] [address] [id number] [place] [address] March, [facility] [address] [id number] [place] [address] March, [facility] [address] [id number] [place] [address] March, [facility] [address] [id number] [place] [address] March, [facility] [address] [id number] [place] [address] March, [facility] [address] [id number] [place] [address] March, [facility] [address] [id number] [place] [address] March, [facility] [address] [id number] [place] [address] March, [facility] [address] [id number] [place] [address] March, [facility] [address] [id number] [place] [address] March, [facility] [address] [id number] [place] [address] 30 Feb, 2012 [facility] [address] [id number] [place] [address] Feb, [facility] [address] [id number] [place] [address] Feb, [facility] [address] [id number] [place] [address] Feb, [facility] [address] [id number] [place] [address] Feb, [facility] [address] [id number] [place] [address] Feb, [facility] [address] [id number] [place] [address] Feb, [facility] [address] [id number] [place] [address] Feb, [facility] [address] [id number] [place] [address] Feb, [facility] [address] [id number] [place] [address] 08 Jan, 2012 [facility] [address] [id number] [place] [address] Jan, [facility] [address] [id number] [place] [address] Jan, [facility] [address] [id number] [place] [address] Jan, [facility] [address] [id number] [place] [address] Dec, [facility] [address] [id number] [place] [address] Dec, [facility] [address] [id number] [place] [address] Nov, [facility] [address] [id number] [place] [address] Nov, [facility] [address] [id number] [place] [address] Nov, [facility] [address] [id number] [place] [address] Nov, [facility] [address] [id number] [place] [address] Nov, [facility] [address] [id number] [place] [address] Oct, [facility] [address] [id number] [place] [address] Oct, [facility] [address] [id number] [place] [address] Oct, [facility] [address] [id number] [place] [address] Oct, [facility] [address] [id number] [place] [address] Oct, [facility] [address] [id number] [place] [address] Oct, [facility] [address] [id number] [place] [address] Oct, [facility] [address] [id number] [place] [address] Oct, [facility] [address] [id number] [place] [address] Sep, IMMUNIZATIONS No Known Immunizations SOCIAL HISTORY [...] fever, discharged 11/27/2017 11/26/2017 Hospitalization History [facility]- Went Unrepsonsive, Hit head 2017 Hospitalization History [facility]- Back Pain 8
--- OUTSIDE RECORDS SUMMARY | 2020-06-18 15:03 | XMS REPORT ---
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 Name Role Phone ILIR MIKE Unavailable PROBLEMS Type Condition ICD9-CM Code TQB83-CJ Code Onset Dates Condition S tatus SNOMED Code Problem Coronary artery disease I25.10 Active 37307415 Problem Hypertension I10 Active 3860321 3 Problem Other chronic pain G89.29 Active 8 9508193 Problem Hyperlipidemia E78.5 Active 00031 004 Problem Type 2 diabetes mellitus wit hout complication, without long-term current use of insulin E11.9 Active 353129377 Problem Low back pain M54.5 Active 942928 009 Problem Pharyngeal dysphagia R13.13 Active 05341820962601 Problem Anxiety F41.9 Active 48028372 Problem Peripheral vascular disease I73.9 Ac tive 965432897 Problem Suprapubic catheter Z93.59 Active 054754474 Problem Reactive depression F32.9 Active 52263511 Problem Neurogenic bladder N31.9 Active 3 03726537 Problem Ventral hernia without obstruction or gangrene K43 .9 Active 797074051 Problem Insomnia G47.00 Active 783780987 Problem Paroxysmal atrial fibrillation I48.0 Active 504206129 Problem Postmenopausal atrophic vaginitis 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 [place] [address] Nov, Hypertension I10 Via [facility] [address] [place] [id number] Nov, Pneumonia of both lungs due to infectiou s organism, unspecified part of lung J18.9 and Suprapubic catheter Z93.59 [facility] [address] [facility] [place] [address] Nov, Hypertension I10 and Reactive depression F32.9 [facility] [id number] [place] [address] Oct, Strain of right shoulder, subsequent enc ounter S46.911D and Anxiety F41.9 [facility] [id number] [place] [address] Oct, Via [facility] [address] [place] [address] Oct, Suprapubic catheter Z93.59 and Candidias is, intertriginous B37.2 [place] [address] [address] Oct, Suprapubic catheter Z93.59 [place] [id number] [place] [address] Oct, Anxiety F41.9 and Strain of right should er, subsequent encounter S46.911D [place] [id number] [place] [address] Sep, [place] [id number] [place] [address] Sep, [place] [id number] [place] [address] Sep, Via [facility] [address] [place] [id number] Sep, Suprapubic catheter Z93.59 [place] [id number] [place] [address] Sep, Anxiety F41.9 and Strain of right should er, subsequent encounter S46.911D [place] [address] [place] [address] Aug, [facility] [address] [place] [address] Aug, [facility] [id number] [place] [address] Aug, Anxiety F41.9 and Strain of right should er, subsequent encounter S46.911D Via [facility] [address] [place] [address] Aug, Suprapubic catheter Z93.59 [place] [address] [address] Jul, Strain of right shoulder, subsequent enc ounter S46.911D and Anxiety F41.9 [place] [address] [address] Jul, Anxiety F41.9 [place] [address] [address] Jun, [place] [address] [address] Jun, [facility] [address] [address] Jun, [place] [address] [address] Jun, Strain of right shoulder, subsequent enc ounter S46.911D [place] [address] [address] Jun, Strain of right shoulder, subsequent enc ounter S46.911D [place] [address] [address] Jun, Anxiety F41.9 Via [facility] [address] [place] [id number] Jun, Neurogenic bladder N31.9 and Anxiety F41 .9 Via [facility] [address] [place] [address] May, Anxiety F41.9 [place] [address] [address] May, Dysuria R30.0 [facility] [address] [address] May, Strain of right shoulder, subsequent enc ounter S46.911D and Anxiety F41.9 [place] [address] [address] 27 Apr, 2019 Via [facility] [address] [place] [id number] Apr, Strain of right shoulder, subsequent enc ounter S46.911D [place] [address] [address] 14 Apr, 2019 Strain of right shoulder, subsequent enc ounter S46.911D and Anxiety F41.9 [facility] [address] [place] [id number] 13 Apr, 2019 Type 2 diabetes mellitus without complic ation, without long-term current use of insulin E11.9 and Neurogenic bladder N31.9 Via [facility] [address] [place] [id number] 11 Apr, 2019 Strain of right shoulder, subsequent enc ounter S46.911D ; History of GI bleed Z87.19 ; Neurogenic bladder N31.9 and Reactive depression F32.9 [place] [address] [address] 10 Apr, 2019 Acute pain of left shoulder M25.512 [place] [address] [address] 07 Apr, 2019 [place] [address] [address] Apr, Anxiety F41.9 and Other chronic pain G89 .29 [facility] [address] [place] [id number] March, Gastrointestinal hemorrhage associated w ith acute gastritis K29.01 [place] [address] [address] March, Via [facility] [address] [place] [address] March, Bronchitis J40 [place] [address] [address] March, Cough R05 [facility] [address] [address] March, Other chronic pain G89.29 [facility] [address] [address] March, Anxiety F41.9 [facility] [address] [address] March, [facility] [address] [address] Feb, Other chronic pain G89.29 [facility] [address] [address] Feb, Anxiety F41.9 [facility] [address] [address] Feb, Other chronic pain G89.29 Via [facility] [address] [place] [address] Feb, Neurogenic bladder N31.9 and Suprapubic catheter Z93.59 [facility] [address] [address] Jan, Anxiety F41.9 [facility] [address] [address] Dec, Anxiety F41.9 [facility] [address] [address] Dec, Other chronic pain G89.29 and Anxiety F4 1.9 [facility] [address] [address] Dec, Via [facility] [address] [place] [id number] Dec, Neurogenic bladder N31.9 and Suprapubic catheter Z93.59 [facility] [address] [address] Nov, Other chronic pain G89.29 and Anxiety F4 1.9 [facility] [address] [address] Nov, Via [facility] [address] [place] [address] Nov, Suprapubic catheter Z93.59 [facility] [address] [address] Oct, Other chronic pain G89.29 and Anxiety F4 1.9 [facility] [address] [address] Oct, [facility] [address] [address] Oct, Suprapubic catheter Z93.59 [facility] [address] [address] Oct, Via [facility] [address] [place] [id number] Oct, [facility] [address] [address] Oct, Anxiety F41.9 [facility] [address] [address] Oct, Anxiety F41.9 Via [facility] [address] [place] [address] Oct, Other chronic pain G89.29 [facility] [address] [address] Sep, Other chronic pain G89.29 Via [facility] [address] [place] [address] Sep, Suprapubic catheter Z93.59 and Cervicalg ia M54.2 [facility] [address] [address] Sep, [facility] [address] [address] Sep, [facility] [address] [address] Sep, Via [facility] [address] [place] [address] Aug, Cystitis N30.90 [place] [address] [address] Aug, [place] [address] [address] Aug, Other chronic pain G89.29 [place] [address] [address] Aug, Via [facility] [address] [place] [id number] Aug, Encounter for suprapubic catheter care Z 43.5 [place] [address] [address] Jul, Via [facility] [address] [place] [address] Jul, [place] [address] [address] Jul, Other chronic pain G89.29 [place] [address] [address] Jul, [place] [address] [address] Jul, Via [facility] [address] [place] [id number] Jun, Postmenopausal atrophic vaginitis N95.2 [place] [address] [address] Jun, Other chronic pain G89.29 [place] [address] [address] Jun, Via [facility] [address] [place] [address] May, Anxiety F41.9 ; Type 2 diabetes mellitus without complication, without long-term current use of insulin E11.9 ; Hypertension I10 ; Low back pain M54.5 ; Paroxysmal atrial fibrillation I48.0 and 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 [facility] [address] [address] May, Other chronic pain G89.29 Via [facility] [address] [place] [id number] May, Low back pain M54.5 [facility] [address] [address] May, [facility] [address] [address] Apr, Other chronic pain G89.29 [facility] [address] [address] Apr, [facility] [address] [address] Apr, Via [facility] [address] [place] [address] Apr, Closed compression fracture of L3 lumbar vertebra with routine healing, subsequent encounter S32.030D [facility] [address] [place] [id number] Apr, Low back pain M54.5 [facility] [address] [place] [address] Apr, Coccydynia M53.3 [facility] [address] [address] March, [facility] [address] [address] March, Other chronic pain G89.29 [facility] [address] [address] March, [facility] [address] [address] March, [facility] [address] [address] Feb, [facility] [address] [address] Feb, Other chronic pain G89.29 Via [facility] [address] [place] [id number] Feb, Other chronic pain G89.29 and Anxiety F4 1.9 [facility] [address] [address] Feb, [facility] [address] [address] Jan, [facility] [address] [address] Jan, [facility] [address] [address] Jan, [place] [address] [address] Jan, [facility] [address] [address] Dec, Via [facility] [address] [place] [id number] Dec, Peripheral vascular disease I73.9 ; 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 MOHINDER [id number] [place] [address] Nov, [place] [address] [id number] [id number] Nov, Anxiety F41.9 [facility] [address] [address] Nov, [place] [address] [id number] [place] [address] Nov, Anxiety F41.9 Via [facility] [address] [place] [id number] Nov, Status post surgery Z98.890 ; Confused R 41.0 ; Anxiety F41.9 and Other chronic pain G89.29 [facility] [address] [id number] [place] [id number] Nov, Other chronic pain G89.29 [facility] [id number] [place] [address] Oct, [facility] [address] [id number] [place] [id number] Oct, Other chronic pain G89.29 [facility] [address] [address] Oct, Anxiety F41.9 [facility] [address] [id number] [place] [address] Sep, Other chronic pain G89.29 [facility] [address] [id number] [place] [id number] Sep, Via [facility] [address] [place] [address] Aug, Dysuria R30.0 and Anxiety F41.9 [facility] [id number] [place] [address] Aug, [facility] [address] [id number] [place] [id number] Aug, Other chronic pain G89.29 [facility] [id number] [place] [address] Jul, Other chronic pain G89.29 [facility] [address] [id number] [place] [id number] Jun, [facility] [address] [id number] [place] [id number] Jun, Other chronic pain G89.29 [facility] [address] [address] Jun, [facility] [address] [address] May, Other chronic pain G89.29 [facility] [address] [address] Apr, Other chronic pain G89.29 [facility] [address] [place] [id number] Apr, Reactive depression F32.9 and Pharyngeal dysphagia R13.13 [facility] [address] [address] Apr, Urinary tract infection without hematuri a, site unspecified N39.0 [facility] [address] [address] March, Other chronic pain G89.29 [place] [address] [address] Feb, Other chronic pain G89.29 [facility] [address] [address] Feb, [facility] [address] [id number] [place] [id number] Feb, [facility] [address] [place] [id number] Feb, Dysuria R30.0 and Ventral hernia without obstruction or gangrene K43.9 [facility] [address] [address] Jan, Other chronic pain G89.29 [facility] [address] [id number] [place] [address] Dec, Other chronic pain G89.29 [facility] [address] [address] Nov, Other chronic pain G89.29 [facility] [address] [place] [id number] Nov, Lymphadenitis I88.9 [facility] [address] [address] Nov, Other chronic pain G89.29 [place] [address] [facility] [place] [address] Nov, [facility] [address] [id number] [place] [id number] Nov, Other chronic pain G89.29 [facility] [address] [place] [id number] Oct, Low back pain M54.5 ; Hypertension I10 a nd Type 2 diabetes mellitus without complication, without long-term current use of insulin E11.9 [facility] [address] [facility] [place] [address] Oct, [facility] [id number] [place] [address] Oct, [facility] [id number] [place] [address] Oct, [facility] [id number] [place] [address] Oct, [facility] [address] [facility] [place] [address] Sep, [facility] [id number] [place] [address] Sep, [facility] [address] [facility] [place] [address] Aug, Other chronic pain G89.29 [facility] [id number] [place] [address] Jul, [facility] [address] [facility] [place] [address] Jul, [facility] [id number] [place] [address] Jul, [facility] [id number] [place] [address] Jun, [facility] [id number] [place] [address] Jun, Via [employer] [facility] [address] [place] [id number] 11 Jun, 2016 Low back pain M54.5 ; Other chronic pain G89.29 and Coronary artery disease I25.10 [facility] [address] [address] 08 Jun, 2016 [facility] [address] [address] May, [facility] [address] [address] May, [facility] [address] [address] May, Other chronic pain G89.29 [facility] [address] [address] May, [facility] [address] [address] Apr, [facility] [address] [address] Apr, Acute cystitis without hematuria N30.00 [facility] [address] [address] 16 Apr, 2016 Acute cystitis without hematuria N30.00 ; Coronary artery disease I25.10 ; Low back pain M54.5 and Other chronic pain G89.29 [facility] [address] [address] Apr, Other chronic pain G89.29 [facility] [address] [address] March, Other chronic pain G89.29 [facility] [address] [address] Feb, [facility] [address] [address] Feb, Arthritis M19.90 [facility] [address] [address] Feb, [facility] [address] [address] Jan, [facility] [address] [address] Jan, [facility] [address] [address] Jan, Other chronic pain G89.29 [facility] [address] [address] Jan, Hypertension I10 ; Coronary artery disea se I25.10 and Insomnia G47.00 [facility] [address] [address] Jan, [facility] [address] [address] Dec, Right hip pain M25.551 [facility] [address] [address] Dec, [facility] [address] [address] Dec, [facility] [address] [address] Dec, [facility] [address] [address] Dec, Other chronic pain G89.29 [facility] [address] [address] Dec, [facility] [address] [address] Nov, [facility] [address] [address] Nov, Other chronic pain G89.29 [facility] [address] [address] Nov, Right hip pain M25.551 and Coronary karissa ry disease I25.10 [facility] [address] [address] [place] [address] Nov, Other chronic pain G89.29 [facility] [id number] [place] [address] Oct, [facility] [id number] [place] [address] Oct, [facility] [id number] [place] [address] Sep, [facility] [id number] [place] [address] Sep, [facility] [address] [address] Aug, [facility] [id number] [place] [address] Aug, Hypertension I10 ; Coronary artery disea se I25.10 and Arthritis M19.90 [facility] [id number] [place] [address] Jun, [facility] [id number] [place] [address] Jun, Essential hypertension, benign 401.1 ; O ther chronic pain 338.29 and Chronic airway obstruction, not elsewhere classified 496 [facility] [id number] [place] [address] Jun, [facility] [id number] [place] [address] Jun, [facility] [id number] [place] [address] Jun, [facility] [id number] [place] [address] May, [facility] [id number] [place] [address] May, [facility] [id number] [place] [address] Apr, [facility] [id number] [place] [address] Apr, [facility] [address] [facility] [id number] [place] [address] Apr, [facility] [address] [id number] [place] [address] March, [facility] [address] [facility] [place] [address] March, [facility] [address] [id number] [place] [address] March, [facility] [address] [facility] [place] [address] March, [facility] [address] [facility] [place] [address] March, Sialadenitis 527.2 [facility] [address] [facility] [place] [address] Feb, [facility] [address] [facility] [place] [address] Feb, [facility] [address] [facility] [place] [address] 29 Feb, 2015 [facility] [address] [facility] [place] [address] 14 Feb, 2015 [facility] [address] [facility] [place] [address] Feb, [facility] [address] [id number] [place] [address] Jan, [facility] [address] [id number] [place] [address] Jan, [facility] [address] [id number] [place] [address] Jan, [facility] [address] [id number] [place] [address] Jan, [facility] [address] [id number] [place] [address] Jan, [facility] [address] [id number] [facility] [place] [address] Jan, [facility] [address] [id number] [facility] [place] [address] Dec, [facility] [address] [id number] [facility] [place] [address] Dec, [facility] [address] [id number] [facility] [place] [address] Dec, [facility] [address] [facility] [id number] [facility] [place] [address] Dec, [facility] [address] [id number] [facility] [place] [address] Dec, [facility] [address] [id number] [place] [address] Dec, [facility] [address] [id number] [place] [address] Nov, [facility] [address] [id number] [place] [address] Nov, [facility] [address] [id number] [place] [address] Nov, [facility] [address] [id number] [place] [address] Nov, [facility] [address] [id number] [place] [address] Nov, [facility] [address] [id number] [place] [address] Nov, [facility] [address] [id number] [place] [address] Nov, [facility] [address] [id number] [place] [address] Nov, [facility] [address] [id number] [place] [address] Nov, [facility] [address] [id number] [place] [address] 15 Nov, 2014 [facility] [address] [id number] [place] [address] Nov, [facility] [address] [id number] [place] [address] Nov, [facility] [address] [id number] [place] [address] Nov, [facility] [address] [id number] [place] [address] Nov, [facility] [address] [id number] [place] [address] Oct, [facility] [address] [id number] [place] [address] Oct, [facility] [address] [id number] [place] [address] 19 Oct, 2014 [facility] [address] [id number] [place] [address] 18 Oct, 2014 [facility] [address] [id number] [place] [address] 18 Oct, 2014 [facility] [address] [id number] [place] [address] Oct, [facility] [address] [id number] [place] [address] 17 Oct, 2014 [facility] [address] [id number] [place] [address] 10 Oct, 2014 [facility] [address] [id number] [place] [address] 10 Oct, 2014 [facility] [address] [id number] [place] [address] Sep, [facility] [address] [id number] [place] [address] Sep, [facility] [address] [id number] [place] [address] Sep, [facility] [address] [id number] [place] [address] Sep, [facility] [address] [id number] [place] [address] Sep, [facility] [address] [id number] [place] [address] Sep, [facility] [address] [id number] [place] [address] Sep, [facility] [address] [id number] [place] [address] Sep, [facility] [address] [id number] [place] [address] Sep, [facility] [address] [id number] [place] [address] Sep, [facility] [address] [id number] [place] [address] Sep, [facility] [address] [id number] [place] [address] Sep, [facility] [address] [id number] [place] [address] Aug, [facility] [address] [id number] [place] [address] Aug, [facility] [address] [id number] [place] [address] Aug, [facility] [address] [id number] [place] [address] Aug, [facility] [address] [id number] [place] [address] Aug, [facility] [address] [id number] [place] [address] Aug, [facility] [address] [id number] [place] [address] Aug, [facility] [address] [id number] [place] [address] 17 Aug, 2014 [facility] [address] [id number] [facility] [place] [address] 30 Jul, 2013 [facility] [address] [facility] [id number] [facility] [place] [address] 30 Jul, 2013 [facility] [address] [id number] [facility] [place] [address] 30 Jul, 2013 [facility] [address] [id number] [facility] [place] [address] 30 Jul, 2013 [facility] [address] [facility] [id number] [facility] [place] [address] 25 Jul, 2014 [facility] [address] [id number] [place] [address] Jul, 2013 [facility] [address] [id number] [place] [address] 15 Jul, 2014 [facility] [address] [id number] [place] [address] 15 Jul, 2014 [facility] [address] [id number] [facility] [place] [address] Jul, [facility] [address] [id number] [place] [address] Jul, [facility] [address] [id number] [place] [address] Jun, [facility] [address] [id number] [place] [address] Jun, [facility] [address] [id number] [place] [address] Jun, [facility] [address] [id number] [place] [address] Jun, [facility] [address] [id number] [place] [address] Jun, [facility] [address] [id number] [place] [address] Jun, [facility] [address] [id number] [facility] [place] [address] Jun, [facility] [address] [id number] [facility] [place] [address] Jun, [facility] [address] [facility] [id number] [facility] [place] [address] Jun, [facility] [address] [facility] [id number] [place] [address] Jun, [facility] [address] [facility] [id number] [facility] [place] [address] Jun, [facility] [address] [id number] [facility] [place] [address] Jun, [facility] [address] [facility] [id number] [place] [address] Jun, [facility] [address] [id number] [place] [address] Jun, [facility] [address] [id number] [place] [address] Jun, [facility] [address] [id number] [facility] [place] [address] Jun, [facility] [address] [facility] [id number] [place] [address] Jun, [facility] [address] [id number] [place] [address] Jun, [facility] [address] [id number] [place] [address] Jun, [facility] [address] [id number] [place] [address] Jun, [facility] [address] [id number] [place] [address] Jun, [facility] [address] [facility] [id number] [place] [address] Jun, [facility] [address] [id number] [place] [address] May, [facility] [address] [facility] [id number] [place] [address] May, 2013 [facility] [address] [facility] [id number] [facility] [place] [address] May, 2013 [facility] [address] [facility] [id number] [place] [address] May, 2013 [facility] [address] [facility] [id number] [place] [address] May, 2013 [facility] [address] [facility] [id number] [place] [address] May, 2013 [facility] [address] [facility] [id number] [place] [address] May, 2013 [facility] [address] [id number] [place] [address] May, 2013 [facility] [address] [id number] [place] [address] May, 2013 [facility] [address] [facility] [id number] [place] [address] May, [facility] [address] [id number] [place] [address] May, [facility] [address] [id number] [place] [address] May, [facility] [address] [id number] [place] [address] May, [facility] [address] [facility] [id number] [place] [address] Apr, [facility] [address] [facility] [id number] [place] [address] Apr, [facility] [address] [facility] [id number] [place] [address] Apr, [facility] [address] [id number] [place] [address] Apr, [facility] [address] [id number] [place] [address] Apr, [facility] [address] [id number] [facility] [place] [address] Apr, [facility] [address] [id number] [facility] [place] [address] Apr, [facility] [address] [id number] [facility] [place] [address] Apr, [facility] [address] [id number] [facility] [place] [address] Apr, [facility] [address] [facility] [id number] [facility] [place] [address] March, [facility] [address] [id number] [place] [address] March, [facility] [address] [id number] [place] [address] March, [facility] [address] [id number] [place] [address] March, [facility] [address] [id number] [facility] [place] [address] March, [facility] [address] [id number] [place] [address] March, [facility] [address] [id number] [place] [address] March, [facility] [address] [id number] [place] [address] March, [facility] [address] [id number] [facility] [place] [address] March, [facility] [address] [id number] [place] [address] March, [facility] [address] [id number] [place] [address] March, [facility] [address] [id number] [place] [address] March, [facility] [address] [id number] [place] [address] March, [facility] [address] [id number] [place] [address] March, [facility] [address] [id number] [place] [address] March, [facility] [address] [id number] [place] [address] March, [facility] [address] [id number] [place] [address] March, [facility] [address] [id number] [place] [address] March, [facility] [address] [id number] [place] [address] March, [facility] [address] [id number] [place] [address] March, [facility] [address] [id number] [place] [address] Feb, [facility] [address] [id number] [place] [address] Feb, [facility] [address] [id number] [place] [address] Feb, [facility] [address] [id number] [place] [address] Feb, [facility] [address] [id number] [place] [address] Feb, [facility] [address] [id number] [place] [address] Feb, [facility] [address] [id number] [place] [address] Feb, [facility] [address] [id number] [place] [address] Feb, [facility] [address] [id number] [place] [address] Jan, [facility] [address] [facility] [id number] [place] [address] Jan, [facility] [address] [facility] [id number] [place] [address] Jan, [facility] [address] [facility] [id number] [place] [address] Jan, [facility] [address] [id number] [place] [address] Jan, [facility] [address] [facility] [id number] [place] [address] Jan, [facility] [address] [id number] [place] [address] Jan, [facility] [address] [id number] [place] [address] Jan, [facility] [address] [id number] [place] [address] Jan, [facility] [address] [id number] [place] [address] Jan, [facility] [address] [id number] [place] [address] Dec, [facility] [address] [id number] [place] [address] Dec, [facility] [address] [id number] [place] [address] Dec, [facility] [address] [id number] [place] [address] 2013 [facility] [address] [id number] [place] [address] 2013 [facility] [address] [id number] [place] [address] Dec, [facility] [address] [id number] [place] [address] Dec, [facility] [address] [id number] [place] [address] Dec, [facility] [address] [id number] [place] [address] Nov, [facility] [address] [id number] [place] [address] Nov, [facility] [address] [id number] [place] [address] Nov, [facility] [address] [id number] [place] [address] Nov, [facility] [address] [id number] [place] [address] Nov, [facility] [address] [id number] [place] [address] Nov, [facility] [address] [id number] [place] [address] Nov, [facility] [address] [id number] [place] [address] Nov, [facility] [address] [id number] [place] [address] Nov, [facility] [address] [id number] [place] [address] Nov, [facility] [address] [id number] [place] [address] Nov, [facility] [address] [id number] [place] [address] Nov, [facility] [address] [id number] [place] [address] Nov, [facility] [address] [id number] [place] [address] Oct, [facility] [address] [id number] [place] [address] Oct, [facility] [address] [id number] [place] [address] Oct, [facility] [address] [id number] [place] [address] Oct, 2012 [facility] [address] [id number] [place] [address] Oct, [facility] [address] [id number] [place] [address] Oct, [facility] [address] [id number] [place] [address] Oct, [facility] [address] [id number] [place] [address] Oct, [facility] [address] [id number] [place] [address] Oct, [facility] [place] [facility] [address] [id number] [place] [address] Oct, [facility] [place] [facility] [address] [id number] [place] [address] Oct, [facility] [place] [facility] [address] [id number] [place] [address] Oct, [facility] [place] [facility] [address] [id number] [place] [address] Oct, [facility] [place] [facility] [address] [id number] [place] [address] Oct, [facility] [place] [facility] [address] [id number] [place] [address] 14 Sep, 2013 [facility] [place] [facility] [address] [id number] [place] [address] 14 Sep, 2013 [facility] [place] [facility] [address] [id number] [place] [address] 05 Sep, 2013 [facility] [place] [facility] [address] [id number] [place] [address] 05 Sep, 2013 [facility] [place] [facility] [address] [id number] [place] [address] Sep, [facility] [place] [facility] [address] [id number] [place] [address] Sep, [facility] [place] [facility] [address] [id number] [place] [address] Sep, [facility] [place] [facility] [address] [id number] [place] [address] Sep, [facility] [place] [facility] [address] [id number] [place] [address] Sep, [facility] [place] [facility] [address] [id number] [place] [address] Sep, [facility] [place] [facility] [address] [id number] [place] [address] Aug, [facility] [place] [facility] [address] [id number] [place] [address] Aug, [facility] [place] [facility] [address] [id number] [place] [address] Aug, [facility] [place] [facility] [address] [id number] [place] [address] Aug, [facility] [place] [facility] [address] [id number] [place] [address] Aug, [facility] [place] [facility] [address] [id number] [place] [address] Aug, [facility] [place] [facility] [address] [id number] [place] [address] Aug, [facility] [place] [facility] [address] [id number] [place] [address] Aug, [facility] [place] [facility] [address] [id number] [place] [address] Aug, [facility] [place] [facility] [address] [id number] [place] [address] Aug, [facility] [place] [facility] [address] [id number] [place] [address] Aug, [facility] [place] [facility] [address] [id number] [place] [address] Aug, [facility] [place] [facility] [address] [id number] [place] [address] 18 Aug, 2013 [facility] [place] [facility] [address] [facility] [id number] [place] [address] 18 Aug, 2013 [facility] [place] [facility] [address] [id number] [place] [address] 17 Aug, 2013 [facility] [place] [facility] [address] [id number] [place] [address] 14 Aug, 2013 [facility] [place] [facility] [address] [id number] [place] [address] 14 Aug, 2013 [facility] [place] [facility] [address] [facility] [id number] [place] [address] Aug, [facility] [place] [facility] [address] [id number] [place] [address] 20 Jul, 2013 [facility] [place] [facility] [address] [id number] [place] [address] 19 Jul, 2013 [facility] [place] [facility] [address] [id number] [place] [address] 18 Jul, 2013 [facility] [place] [facility] [address] [id number] [place] [address] 11 Jul, 2013 [facility] [place] [facility] [address] [id number] [place] [address] Jul, [facility] [place] [facility] [address] [id number] [place] [address] 28 Jun, 2013 [facility] [place] [facility] [address] [id number] [place] [address] Jun, [facility] [place] [facility] [address] [id number] [place] [address] Jun, [facility] [place] [facility] [address] [id number] [place] [address] 15 Jun, 2013 [facility] [place] [facility] [address] [id number] [place] [address] 14 Jun, 2013 [facility] [place] [facility] [address] [id number] [place] [address] Jun, [facility] [place] [facility] [address] [id number] [place] [address] Jun, [facility] [place] [facility] [address] [facility] [id number] [facility] [place] [address] Jun, [facility] [place] [facility] [address] [facility] [id number] [facility] [place] [address] Jun, [facility] [place] [facility] [address] [id number] [facility] [place] [address] Jun, [facility] [place] [facility] [address] [facility] [id number] [place] [address] May, [facility] [place] [facility] [address] [id number] [place] [address] May, [facility] [place] [facility] [address] [id number] [place] [address] May, [facility] [place] [facility] [address] [id number] [place] [address] May, [facility] [place] [facility] [address] [id number] [place] [address] May, [facility] [place] [facility] [address] [id number] [place] [address] May, [facility] [place] [facility] [address] [id number] [place] [address] May, [facility] [address] [id number] [place] [address] May, [facility] [address] [id number] [place] [address] May, [facility] [address] [facility] [id number] [place] [address] Apr, [facility] [address] [facility] [id number] [place] [address] Apr, [facility] [address] [id number] [place] [address] Apr, [facility] [address] [id number] [place] [address] Apr, [facility] [address] [facility] [id number] [place] [address] Apr, [facility] [address] [id number] [facility] [place] [address] Apr, [facility] [address] [id number] [place] [address] Apr, [facility] [address] [id number] [place] [address] March, [facility] [address] [facility] [id number] [facility] [place] [address] Feb, [facility] [address] [id number] [place] [address] Feb, [facility] [address] [id number] [place] [address] Feb, [facility] [address] [id number] [place] [address] Jan, [facility] [address] [id number] [place] [address] Jan, [facility] [address] [id number] [place] [address] Jan, [facility] [address] [id number] [place] [address] Jan, [facility] [address] [id number] [place] [address] Jan, [facility] [address] [id number] [place] [address] 08 Jan, 2013 [facility] [address] [id number] [place] [address] 07 Jan, 2013 [facility] [address] [id number] [place] [address] Jan, [facility] [address] [id number] [place] [address] Dec, [facility] [address] [id number] [place] [address] 25 Dec, 2012 [facility] [address] [facility] [id number] [place] [address] Dec, [facility] [address] [id number] [place] [address] Dec, [facility] [address] [id number] [place] [address] 07 Dec, 2012 [facility] [address] [id number] [place] [address] 06 Dec, 2012 [facility] [address] [id number] [place] [address] 05 Dec, 2012 [facility] [address] [id number] [place] [address] Nov, [facility] [address] [id number] [place] [address] Nov, [facility] [address] [id number] [place] [address] Nov, [facility] [address] [id number] [place] [address] Nov, [facility] [address] [id number] [place] [address] Nov, [facility] [address] [id number] [place] [address] Nov, [facility] [address] [id number] [place] [address] Nov, [facility] [address] [id number] [place] [address] Oct, [facility] [address] [id number] [place] [address] Oct, [facility] [address] [id number] [place] [address] Oct, [facility] [address] [id number] [place] [address] Oct, [facility] [address] [id number] [place] [address] Oct, [facility] [address] [id number] [place] [address] Oct, [facility] [address] [id number] [place] [address] Oct, [facility] [address] [id number] [place] [address] Oct, [facility] [address] [id number] [place] [address] Oct, [facility] [address] [id number] [place] [address] Oct, [facility] [address] [id number] [place] [address] Oct, [facility] [address] [id number] [place] [address] Oct, [facility] [address] [id number] [place] [address] Sep, [facility] [address] [id number] [place] [address] Sep, [facility] [address] [id number] [place] [address] Sep, [facility] [address] [id number] [place] [address] Sep, [facility] [address] [id number] [place] [address] Sep, [facility] [address] [id number] [place] [address] Sep, [facility] [address] [id number] [place] [address] Sep, [facility] [address] [id number] [place] [address] Sep, [facility] [address] [id number] [place] [address] Sep, [facility] [address] [id number] [place] [address] Sep, [facility] [address] [id number] [place] [address] Sep, [facility] [address] [id number] [place] [address] Aug, [facility] [address] [id number] [place] [address] Aug, [facility] [address] [id number] [place] [address] Aug, [facility] [address] [id number] [place] [address] Aug, [facility] [address] [id number] [place] [address] Aug, [facility] [address] [id number] [place] [address] Aug, [facility] [address] [id number] [place] [address] Aug, [facility] [address] [id number] [place] [address] Aug, [facility] [address] [id number] [place] [address] Aug, [facility] [address] [id number] [place] [address] Aug, [facility] [address] [id number] [place] [address] Jul, [facility] [address] [id number] [place] [address] 20 Jul, 2011 [facility] [address] [id number] [place] [address] 10 Jul, 2011 [facility] [address] [id number] [place] [address] 06 Jul, 2012 [facility] [address] [id number] [facility] [place] [address] Jun, [facility] [address] [id number] [facility] [place] [address] Jun, [facility] [address] [id number] [facility] [place] [address] Jun, [facility] [address] [id number] [place] [address] Jun, [facility] [address] [id number] [place] [address] Jun, [facility] [address] [id number] [place] [address] Jun, [facility] [address] [id number] [place] [address] Jun, [facility] [address] [id number] [place] [address] May, [facility] [address] [id number] [place] [address] May, [facility] [address] [id number] [place] [address] May, [facility] [address] [id number] [place] [address] May, [facility] [address] [id number] [place] [address] May, [facility] [address] [id number] [place] [address] Apr, [facility] [address] [facility] [id number] [place] [address] Apr, [facility] [address] [id number] [place] [address] Apr, [facility] [address] [id number] [place] [address] Apr, [facility] [address] [id number] [place] [address] Apr, [facility] [address] [id number] [place] [address] March, [facility] [address] [id number] [place] [address] March, [facility] [address] [id number] [place] [address] March, [facility] [address] [id number] [place] [address] March, [facility] [address] [id number] [place] [address] March, [facility] [address] [id number] [place] [address] March, [facility] [address] [id number] [place] [address] March, [facility] [address] [id number] [place] [address] March, [facility] [address] [id number] [place] [address] March, [facility] [address] [id number] [place] [address] March, [facility] [address] [id number] [place] [address] Feb, [facility] [address] [id number] [place] [address] Feb, [facility] [address] [id number] [place] [address] Feb, [facility] [address] [id number] [place] [address] Feb, [facility] [address] [id number] [place] [address] Feb, [facility] [address] [id number] [place] [address] Feb, [facility] [address] [id number] [place] [address] Feb, [facility] [address] [id number] [place] [address] Feb, [facility] [address] [id number] [place] [address] Feb, [facility] [address] [id number] [place] [address] Jan, [facility] [address] [id number] [place] [address] Jan, [facility] [address] [id number] [place] [address] Jan, [facility] [address] [id number] [place] [address] Jan, [facility] [address] [id number] [place] [address] Dec, [facility] [address] [id number] [place] [address] Dec, [facility] [address] [id number] [place] [address] Nov, [facility] [address] [id number] [place] [address] Nov, [facility] [address] [id number] [place] [address] Nov, [facility] [address] [id number] [place] [address] Nov, [facility] [address] [id number] [place] [address] Nov, [facility] [id number] [place] [address] Oct, [facility] [address] [id number] [place] [address] Oct, [facility] [address] [id number] [place] [address] Oct[facility] [address] [id number] [place] [address] Oct, [facility] [address] [id number] [place] [address] Oct, [facility] [address] [id number] [place] [address] Oct, [facility] [address] [id number] [place] [address] Oct, [facility] [address] [id number] [place] [address] Oct, [facility] [address] [id number] [place] [address] Sep, IMMUNIZATIONS No Known Immunizations SOCIAL HISTORY [...] fever, discharged 11/27/2017 11/26/2017 Hospitalization History [facility]- Went Unrepsonsive, Hit head 2017 Hospitalization History [facility]- Back Pain 8
--- OUTSIDE RECORDS SUMMARY | 2020-06-18 15:03 | XMS REPORT ---
Author Author Sanjuanita MARQUEZ [facility] Address [address] [place] [address] Care Team Providers Care Merchandise Pickup/Receiving Associate Name Role Phone SHAHNAZ MARQUEZ Unavailable PROBLEMS Type Condition ICD9-CM Code JEK46-AN Code Onset Dates Condition S tatus SNOMED Code Problem Coronary artery disease I25.10 Active 89776613 Problem Hypertension I10 Active 4625589 3 Problem Other chronic pain G89.29 Active 8 4119196 Problem Hyperlipidemia E78.5 Active 14107 004 Problem Type 2 diabetes mellitus wit hout complication, without long-term current use of insulin E11.9 Active 172801471 Problem Low back pain M54.5 Active 109404 009 Problem Pharyngeal dysphagia R13.13 Active 45686800571549 Problem Anxiety F41.9 Active 00422129 Problem Peripheral vascular disease I73.9 Ac tive 145760353 Problem Suprapubic catheter Z93.59 Active 992341861 Problem Reactive depression F32.9 Active 10264743 Problem Neurogenic bladder N31.9 Active 3 65954549 Problem Ventral hernia without obstruction or gangrene K43 .9 Active 736521207 Problem Insomnia G47.00 Active 160672873 Problem Paroxysmal atrial fibrillation I48.0 Active 192954376 Problem Postmenopausal atrophic vaginitis 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 [place] [address] Nov, Hypertension I10 and Reactive depression F32.9 [facility] [id number] [place] [address] Oct, Strain of right shoulder, subsequent enc ounter S46.911D and Anxiety F41.9 [facility] [id number] [place] [address] Oct, Via [facility] [address] [place] [address] Oct, Suprapubic catheter Z93.59 and Candidias is, intertriginous B37.2 [place] [place] [address] [address] Oct, Suprapubic catheter Z93.59 [facility] [place] [address] [address] Oct, Anxiety F41.9 and Strain of right should er, subsequent encounter S46.911D [facility] [facility] [address] [address] Sep, [place] [id number] [place] [address] Sep, [place] [address] [address] Sep, Via [facility] [address] [place] [id number] Sep, Suprapubic catheter Z93.59 [facility] [id number] [place] [address] Sep, Anxiety F41.9 and Strain of right should er, subsequent encounter S46.911D [facility] [id number] [place] [address] Aug, [facility] [id number] [place] [address] Aug, [place] [address] [address] Aug, Anxiety F41.9 and Strain of right should er, subsequent encounter S46.911D [facility] [address] [place] [id number] Aug, Suprapubic catheter Z93.59 [place] [address] [address] Jul, Strain of right shoulder, subsequent enc ounter S46.911D and Anxiety F41.9 [place] [address] [address] Jul, Anxiety F41.9 [place] [address] [address] Jun, [place] [address] [address] Jun, [place] [address] [address] Jun, [place] [address] [address] Jun, Strain of right shoulder, subsequent enc ounter S46.911D [place] [address] [address] Jun, Strain of right shoulder, subsequent enc ounter S46.911D [place] [address] [address] Jun, Anxiety F41.9 Via [facility] [address] [place] [id number] Jun, Neurogenic bladder N31.9 and Anxiety F41 .9 [facility] [address] [place] [id number] May, Anxiety F41.9 [place] [address] [address] May, Dysuria R30.0 [place] [address] [address] May, Strain of right shoulder, subsequent enc ounter S46.911D and Anxiety F41.9 [place] [address] [address] 27 Apr, 2019 [facility] [address] [place] [id number] Apr, Strain of right shoulder, subsequent enc ounter S46.911D [place] [address] [address] 14 Apr, 2019 Strain of right shoulder, subsequent enc ounter S46.911D and Anxiety F41.9 [facility] [address] [place] [id number] 13 Apr, 2019 Type 2 diabetes mellitus without complic ation, without long-term current use of insulin E11.9 and Neurogenic bladder N31.9 [facility] [address] [place] [id number] 11 Apr, 2019 Strain of right shoulder, subsequent enc ounter S46.911D ; History of GI bleed Z87.19 ; Neurogenic bladder N31.9 and Reactive depression F32.9 [place] [address] [address] 10 Apr, 2019 Acute pain of left shoulder M25.512 [facility] [address] [address] 07 Apr, 2019 [place] [address] [address] Apr, Anxiety F41.9 and Other chronic pain G89 .29 [facility] [address] [place] [id number] March, Gastrointestinal hemorrhage associated w ith acute gastritis K29.01 [place] [address] [address] March, [facility] [address] [place] [id number] March, Bronchitis J40 [facility] [address] [address] March, Cough R05 [facility] [address] [address] March, Other chronic pain G89.29 [facility] [address] [address] March, Anxiety F41.9 [facility] [address] [address] March, [facility] [address] [address] Feb, Other chronic pain G89.29 [facility] [address] [address] Feb, Anxiety F41.9 [facility] [address] [address] Feb, Other chronic pain G89.29 [facility] [address] [place] [id number] Feb, Neurogenic bladder N31.9 and Suprapubic catheter Z93.59 [facility] [address] [address] Jan, Anxiety F41.9 [facility] [address] [address] Dec, Anxiety F41.9 [facility] [address] [address] Dec, Other chronic pain G89.29 and Anxiety F4 1.9 [facility] [address] [address] Dec, Via [facility] [address] [place] [id number] Dec, Neurogenic bladder N31.9 and Suprapubic catheter Z93.59 [facility] [address] [address] Nov, Other chronic pain G89.29 and Anxiety F4 1.9 [facility] [address] [address] Nov, Via [facility] [address] [place] [id number] Nov, Suprapubic catheter Z93.59 [facility] [address] [address] Oct, Other chronic pain G89.29 and Anxiety F4 1.9 [facility] [address] [address] Oct, [facility] [address] [address] Oct, Suprapubic catheter Z93.59 [place] [address] [address] Oct, Via [facility] [address] [place] [id number] Oct, [place] [address] [address] Oct, Anxiety F41.9 [place] [address] [address] Oct, Anxiety F41.9 [facility] [address] [place] [id number] Oct, Other chronic pain G89.29 [place] [address] [address] Sep, Other chronic pain G89.29 [facility] [address] [place] [id number] Sep, Suprapubic catheter Z93.59 and Cervicalg ia M54.2 [place] [address] [address] Sep, [place] [address] [address] Sep, [place] [address] [address] Sep, Via [facility] [address] [place] [id number] Aug, Cystitis N30.90 [place] [address] [address] Aug, [place] [address] [address] Aug, Other chronic pain G89.29 [place] [address] [address] Aug, Via [facility] [address] [place] [id number] Aug, Encounter for suprapubic catheter care Z 43.5 [place] [address] [address] Jul, Via [facility] [address] [place] [id number] Jul, [place] [address] [address] Jul, Other chronic pain G89.29 [place] [address] [address] Jul, [place] [address] [address] Jul, Via [facility] [address] [place] [id number] Jun, Postmenopausal atrophic vaginitis N95.2 [place] [address] [address] Jun, Other chronic pain G89.29 [place] [address] [address] Jun, Via [facility] [address] [place] [id number] May, Anxiety F41.9 ; Type 2 diabetes mellitus without complication, without long-term current use of insulin E11.9 ; Hypertension I10 ; Low back pain M54.5 ; Paroxysmal atrial fibrillation I48.0 and 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 [facility] [address] [address] May, Other chronic pain G89.29 [facility] [address] [place] [id number] May, Low back pain M54.5 [facility] [address] [address] May, [facility] [address] [address] Apr, Other chronic pain G89.29 [facility] [address] [address] Apr, [facility] [address] [address] Apr, Via [facility] [address] [place] [id number] Apr, Closed compression fracture of L3 lumbar vertebra with routine healing, subsequent encounter S32.030D [facility] [address] [place] [id number] 14 Apr, 2018 Low back pain M54.5 [facility] [address] [place] [id number] Apr, Coccydynia M53.3 [facility] [address] [address] March, [facility] [address] [address] March, Other chronic pain G89.29 [facility] [address] [address] March, [facility] [address] [address] March, [facility] [address] [address] Feb, [facility] [address] [address] Feb, Other chronic pain G89.29 Via [facility] [address] [place] [id number] Feb, Other chronic pain G89.29 and Anxiety F4 1.9 [facility] [id number] [place] [address] Feb, [facility] [address] [address] Jan, [place] [address] [address] Jan, [place] [address] [address] Jan, [place] [address] [address] Jan, [address] [address] Dec, Via [facility] [address] [place] [id number] Dec, Peripheral vascular disease I73.9 ; 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 ; Other chronic pain G89.29 ; Anxiety F41.9 ; Reactive depression F32.9 ; Insomnia G47.00 and Type 2 diabetes mellitus without complication, without long-term current use of insulin E11.9 [facility] ADRIENNE SANCHE[id number] [address] Nov, [facility] [address] [id number] [place] [id number] Nov, Anxiety F41.9 [place] [id number] [place] [address] Nov, [place] [address] [id number] [place] [address] Nov, Anxiety F41.9 [facility] [address] [place] [id number] Nov, Status post surgery Z98.890 ; Confused R 41.0 ; Anxiety F41.9 and Other chronic pain G89.29 [facility] [address] [id number] [place] [id number] Nov, Other chronic pain G89.29 [facility] [address] [id number] [place] [address] Oct, [facility] [address] [id number] [place] [id number] Oct, Other chronic pain G89.29 [facility] [id number] [place] [address] Oct, Anxiety F41.9 [facility] [address] [id number] [place] [id number] Sep, Other chronic pain G89.29 [facility] [address] [id number] [place] [id number] Sep, Via [facility] [address] [place] [id number] Aug, Dysuria R30.0 and Anxiety F41.9 [facility] [address] [id number] [place] [address] Aug, [facility] [address] [id number] [place] [id number] Aug, Other chronic pain G89.29 [facility] [id number] [place] [address] Jul, Other chronic pain G89.29 [facility] [address] [id number] [place] [id number] Jun, [facility] [address] [id number] [place] [id number] Jun, Other chronic pain G89.29 [facility] [address] [facility] [place] [address] Jun, [facility] [address] [address] May, Other chronic pain G89.29 [facility] [address] [address] Apr, Other chronic pain G89.29 [facility] [address] [place] [id number] Apr, Reactive depression F32.9 and Pharyngeal dysphagia R13.13 [facility] [address] [address] Apr, Urinary tract infection without hematuri a, site unspecified N39.0 [place] [address] [address] March, Other chronic pain G89.29 [place] [address] [address] Feb, Other chronic pain G89.29 [address] [address] [address] Feb, [place] [address] [address] [id number] [place] [id number] Feb, [facility] [address] [place] [id number] Feb, Dysuria R30.0 and Ventral hernia without obstruction or gangrene K43.9 [place] [address] [address] Jan, Other chronic pain G89.29 [place] [address] [id number] [place] [id number] Dec, Other chronic pain G89.29 [facility] [address] [address] Nov, Other chronic pain G89.29 [facility] [address] [place] [id number] Nov, Lymphadenitis I88.9 [facility] [address] [address] Nov, Other chronic pain G89.29 [facility] [address] [facility] [place] [address] Nov, [facility] [address] [id number] [place] [id number] Nov, Other chronic pain G89.29 [facility] [address] [place] [id number] Oct, Low back pain M54.5 ; Hypertension I10 a nd Type 2 diabetes mellitus without complication, without long-term current use of insulin E11.9 [facility] [id number] [place] [address] Oct, [facility] [id number] [place] [address] Oct, [facility] [id number] [place] [address] Oct, [facility] [id number] [place] [address] Oct, [facility] [address] [id number] [place] [address] Sep, [facility] [id number] [place] [address] Sep, [facility] [address] [id number] [place] [address] Aug, Other chronic pain G89.29 [facility] [id number] [place] [address] Jul, [facility] [address] [id number] [place] [address] Jul, [facility] [id number] [place] [address] Jul, [facility] [id number] [place] [address] Jun, [facility] [id number] [place] [address] Jun, [facility] [address] [place] [id number] 11 Jun, 2016 Low back pain M54.5 ; Other chronic pain G89.29 and Coronary artery disease I25.10 [facility] [id number] [place] [address] 08 Jun, 2016 [facility] [address] [address] May, [facility] [address] [address] May, [facility] [address] [address] May, Other chronic pain G89.29 [facility] [address] [address] May, [facility] [address] [address] Apr, [facility] [address] [address] Apr, Acute cystitis without hematuria N30.00 [facility] [address] [address] 16 Apr, 2016 Acute cystitis without hematuria N30.00 ; Coronary artery disease I25.10 ; Low back pain M54.5 and Other chronic pain G89.29 [facility] [id number] [place] [address] Apr, Other chronic pain G89.29 [facility] [address] [address] March, Other chronic pain G89.29 [facility] [address] [address] 18 Feb, 2016 [facility] [address] [address] Feb, Arthritis M19.90 [facility] [address] [address] Feb, [facility] [address] [address] Jan, [facility] [address] [address] Jan, [facility] [address] [address] Jan, Other chronic pain G89.29 [facility] [address] [address] Jan, Hypertension I10 ; Coronary artery disea se I25.10 and Insomnia G47.00 [facility] [address] [address] Jan, [facility] [address] [address] Dec, Right hip pain M25.551 [facility] [address] [address] Dec, [facility] [address] [address] Dec, [facility] [address] [address] Dec, [facility] [address] [address] Dec, Other chronic pain G89.29 [facility] [address] [address] Dec, [facility] [address] [address] Nov, [facility] [address] [address] Nov, Other chronic pain G89.29 [facility] [address] [address] Nov, Right hip pain M25.551 and Coronary karissa ry disease I25.10 [facility] [id number] [place] [address] Nov, Other chronic pain G89.29 [facility] [address] [address] Oct, [facility] [address] [address] Oct, [facility] [address] [address] Sep, [facility] [address] [address] Sep, [facility] [address] [address] Aug, [facility] [address] [address] Aug, Hypertension I10 ; Coronary artery disea se I25.10 and Arthritis M19.90 [facility] [address] [address] Jun, [facility] [address] [address] Jun, Essential hypertension, benign 401.1 ; O ther chronic pain 338.29 and Chronic airway obstruction, not elsewhere classified 496 [facility] [address] [address] Jun, [facility] [address] [address] Jun, [facility] [address] [address] Jun, [facility] [address] [address] May, [facility] [address] [address] May, [facility] [address] [address] Apr, [facility] [address] [id number] [place] [address] 16 Apr, 2015 [facility] [address] [id number] [place] [address] Apr, [facility] [address] [id number] [place] [address] March, [facility] [address] [id number] [place] [address] March, [facility] [address] [id number] [place] [address] March, [facility] [address] [id number] [place] [address] March, [facility] [address] [id number] [place] [address] March, Sialadenitis 527.2 [facility] [address] [id number] [place] [address] Feb, [facility] [address] [id number] [place] [address] Feb, [facility] [address] [id number] [place] [address] 29 Feb, 2015 [facility] [address] [id number] [place] [address] 14 Feb, 2015 [facility] [address] [id number] [place] [address] 13 Feb, 2015 [facility] [address] [id number] [place] [address] Jan, [facility] [address] [id number] [place] [address] Jan, [facility] [address] [id number] [place] [address] 10 Jan, 2015 [facility] [address] [id number] [place] [address] Jan, [facility] [address] [id number] [place] [address] Jan, [facility] [address] [id number] [place] [address] Jan, [facility] [address] [id number] [place] [address] Dec, [facility] [address] [id number] [place] [address] Dec, [facility] [address] [id number] [place] [address] Dec, [facility] [address] [id number] [place] [address] Dec, [facility] [address] [id number] [place] [address] Dec, [facility] [address] [id number] [place] [address] Dec, [facility] [address] [id number] [place] [address] Nov, [facility] [address] [id number] [place] [address] Nov, [facility] [address] [id number] [place] [address] Nov, [facility] [address] [id number] [place] [address] Nov, [facility] [address] [id number] [place] [address] Nov, [facility] [address] [id number] [place] [address] Nov, [facility] [address] [id number] [place] [address] Nov, [facility] [address] [id number] [place] [address] Nov, [facility] [address] [id number] [place] [address] Nov, [facility] [address] [id number] [place] [address] Nov, [facility] [address] [id number] [place] [address] Nov, [facility] [address] [id number] [place] [address] Nov, [facility] [address] [id number] [place] [address] Nov, [facility] [address] [id number] [place] [address] Nov, [facility] [address] [id number] [place] [address] Oct, [facility] [address] [id number] [place] [address] Oct, [facility] [address] [id number] [place] [address] Oct, [facility] [address] [id number] [place] [address] Oct, [facility] [place] [facility] [address] [id number] [place] [address] 18 Oct, 2014 [facility] [place] [facility] [address] [id number] [place] [address] Oct, [facility] [place] [facility] [address] [id number] [place] [address] 17 Oct, 2014 [facility] [place] [facility] [address] [id number] [place] [address] 10 Oct, 2014 [facility] [place] [facility] [address] [id number] [place] [address] Oct, [facility] [place] [facility] [address] [id number] [place] [address] Sep, [facility] [place] [facility] [address] [id number] [place] [address] Sep, [facility] [place] [facility] [address] [id number] [place] [address] Sep, [facility] [place] [facility] [address] [id number] [place] [address] Sep, [facility] [place] [facility] [address] [id number] [place] [address] Sep, [facility] [place] [facility] [address] [id number] [place] [address] Sep, [facility] [place] [facility] [address] [id number] [place] [address] Sep, [facility] [place] [facility] [address] [facility] [id number] [place] [address] Sep, [facility] [place] [facility] [address] [id number] [place] [address] Sep, [facility] [place] [facility] [address] [id number] [place] [address] Sep, [facility] [place] [facility] [address] [id number] [place] [address] Sep, [facility] [place] [facility] [address] [id number] [place] [address] Sep, [facility] [place] [facility] [address] [id number] [place] [address] Aug, [facility] [place] [facility] [address] [id number] [place] [address] Aug, [facility] [place] [facility] [address] [id number] [place] [address] Aug, [facility] [place] [facility] [address] [id number] [place] [address] Aug, [facility] [place] [facility] [address] [id number] [place] [address] Aug, [facility] [place] [facility] [address] [id number] [place] [address] Aug, [facility] [place] [facility] [address] [id number] [place] [address] Aug, [facility] [place] [facility] [address] [id number] [place] [address] 17 Aug, 2014 [facility] [place] [facility] [address] [id number] [facility] [place] [address] 30 Jul, 2013 [facility] [place] [facility] [address] [facility] [id number] [place] [address] 30 Jul, 2013 [facility] [place] [facility] [address] [id number] [place] [address] 30 Jul, 2013 [facility] [place] [facility] [address] [id number] [place] [address] 30 Jul, 2013 [facility] [place] [facility] [address] [facility] [id number] [place] [address] Jul, [facility] [place] [facility] [address] [id number] [place] [address] Jul, [facility] [place] [facility] [address] [id number] [place] [address] 15 Jul, 2014 [facility] [place] [facility] [address] [id number] [place] [address] 15 Jul, 2014 [facility] [place] [facility] [address] [id number] [place] [address] Jul, [facility] [place] [facility] [address] [id number] [place] [address] Jul, [facility] [place] [facility] [address] [id number] [place] [address] Jun, [facility] [place] [facility] [address] [id number] [place] [address] Jun, [facility] [place] [facility] [address] [id number] [place] [address] Jun, [facility] [place] [facility] [address] [id number] [place] [address] Jun, [facility] [place] [facility] [address] [id number] [place] [address] Jun, [facility] [place] [facility] [address] [id number] [place] [address] Jun, [facility] [place] [facility] [address] [id number] [place] [address] Jun, [facility] [place] [facility] [address] [id number] [place] [address] Jun, [facility] [place] [facility] [address] [facility] [id number] [place] [address] Jun, [facility] [place] [facility] [address] [id number] [place] [address] Jun, [facility] [place] [facility] [address] [id number] [place] [address] Jun, [facility] [place] [facility] [address] [id number] [place] [address] Jun, [facility] [place] [facility] [address] [id number] [place] [address] Jun, [facility] [place] [facility] [address] [id number] [place] [address] Jun, [facility] [place] [facility] [address] [id number] [place] [address] Jun, [facility] [place] [facility] [address] [id number] [place] [address] Jun, [facility] [place] [facility] [address] [id number] [place] [address] Jun, [facility] [place] [facility] [address] [id number] [place] [address] Jun, [facility] [place] [facility] [address] [id number] [place] [address] Jun, [facility] [place] [facility] [address] [id number] [place] [address] Jun, [facility] [place] [facility] [address] [id number] [place] [address] Jun, [facility] [place] [facility] [address] [id number] [place] [address] Jun, [facility] [place] [facility] [address] [id number] [place] [address] May, 2013 [facility] [place] [facility] [address] [id number] [facility] [place] [address] May, 2013 [facility] [place] [facility] [address] [id number] [place] [address] May, 2013 [facility] [place] [facility] [address] [facility] [id number] [facility] [place] [address] May, 2013 [facility] [place] [facility] [address] [id number] [place] [address] May, 2013 [facility] [place] [facility] [address] [facility] [id number] [place] [address] May, 2013 [facility] [place] [facility] [address] [id number] [place] [address] May, 2013 [facility] [place] [facility] [address] [facility] [id number] [facility] [place] [address] May, 2013 [facility] [place] [facility] [address] [id number] [facility] [place] [address] May, 2013 [facility] [place] [facility] [address] [facility] [id number] [facility] [facility] [address] May, [facility] [place] [facility] [address] [facility] [id number] [facility] [address] May, [facility] [place] [facility] [address] [facility] [id number] [facility] [address] May, [facility] [place] [facility] [address] [id number] [facility] [place] [facility] [address] May, [facility] [place] [facility] [address] [facility] [id number] [facility] [place] [address] Apr, [facility] [place] [facility] [address] [id number] [facility] [place] [address] Apr, [facility] [place] [facility] [address] [facility] [id number] [place] [address] Apr, [facility] [place] [facility] [address] [id number] [facility] [place] [place] [address] Apr, [facility] [place] [facility] [address] [facility] [id number] [place] [address] Apr, [facility] [place] [facility] [address] [id number] [facility] [place] [address] Apr, [facility] [place] [facility] [address] [facility] [id number] [place] [address] Apr, [facility] [place] [facility] [address] [id number] [place] [address] Apr, [facility] [place] [facility] [address] [id number] [place] [address] Apr, [facility] [place] [facility] [address] [facility] [id number] [facility] [place] [address] March, [facility] [place] [facility] [address] [id number] [place] [address] March, [facility] [place] [facility] [address] [id number] [place] [address] March, [facility] [place] [facility] [address] [id number] [place] [address] March, [facility] [place] [facility] [address] [id number] [place] [address] March, [facility] [place] [facility] [address] [id number] [place] [address] March, [facility] [place] [facility] [address] [id number] [place] [address] March, [facility] [place] [facility] [address] [id number] [place] [address] March, [facility] [place] [facility] [address] [facility] [id number] [place] [address] March, [facility] [place] [facility] [address] [id number] [place] [address] March, [facility] [place] [facility] [address] [id number] [place] [address] March, [facility] [place] [facility] [address] [id number] [place] [address] March, [facility] [place] [facility] [address] [id number] [place] [address] March, [facility] [place] [facility] [address] [id number] [place] [address] March, [facility] [place] [facility] [address] [id number] [place] [address] March, [facility] [place] [facility] [address] [id number] [place] [address] March, [facility] [place] [facility] [address] [id number] [place] [address] March, [facility] [place] [facility] [address] [id number] [place] [address] March, [facility] [place] [facility] [address] [id number] [place] [address] March, [facility] [place] [facility] [address] [id number] [place] [address] March, [facility] [place] [facility] [address] [id number] [place] [address] Feb, [facility] [place] [facility] [address] [id number] [place] [address] Feb, [facility] [place] [facility] [address] [id number] [place] [address] Feb, [facility] [place] [facility] [address] [id number] [place] [address] Feb, [facility] [place] [facility] [address] [id number] [place] [address] Feb, [facility] [place] [facility] [address] [id number] [place] [address] Feb, [facility] [place] [facility] [address] [id number] [place] [address] Feb, [facility] [place] [facility] [address] [id number] [place] [address] Feb, [facility] [place] [facility] [address] [id number] [place] [address] Jan, [facility] [place] [facility] [address] [facility] [id number] [facility] [place] [address] Jan, [facility] [place] [facility] [address] [facility] [id number] [place] [address] Jan, [facility] [place] [facility] [address] [facility] [id number] [facility] [place] [address] Jan, [facility] [place] [facility] [address] [facility] [id number] [place] [address] Jan, [facility] [place] [facility] [address] [facility] [id number] [place] [address] Jan, [facility] [place] [facility] [address] [id number] [place] [address] Jan, [facility] [place] [facility] [address] [id number] [facility] [place] [address] Jan, [facility] [place] [facility] [address] [id number] [facility] [place] [address] Jan, [facility] [place] [facility] [address] [facility] [id number] [place] [address] Jan, [facility] [place] [facility] [address] [id number] [facility] [place] [address] 27 Dec, 2013 [facility] [place] [facility] [address] [id number] [facility] [place] [facility] [address] Dec, [facility] [place] [facility] [address] [id number] [facility] [place] [facility] [address] Dec, [facility] [place] [facility] [address] [facility] [id number] [facility] [address] 2013 [facility] [place] [facility] [address] [id number] [place] [address] 2013 [facility] [place] [facility] [address] [id number] [place] [address] 13 Dec, 2013 [facility] [place] [facility] [address] [id number] [place] [address] 12 Dec, 2013 [facility] [place] [facility] [address] [id number] [place] [address] Dec, [facility] [place] [facility] [address] [id number] [place] [address] Nov, [facility] [place] [facility] [address] [id number] [place] [address] Nov, [facility] [place] [facility] [address] [id number] [place] [address] Nov, [facility] [place] [facility] [address] [id number] [place] [address] Nov, [facility] [place] [facility] [address] [id number] [place] [address] Nov, [facility] [place] [facility] [address] [id number] [place] [address] Nov, [facility] [place] [facility] [address] [id number] [place] [address] Nov, [facility] [place] [facility] [address] [id number] [place] [address] Nov, [facility] [place] [facility] [address] [id number] [place] [address] Nov, [facility] [place] [facility] [address] [id number] [place] [address] Nov, [facility] [place] [facility] [address] [id number] [place] [address] Nov, [facility] [place] [facility] [address] [id number] [place] [address] Nov, [facility] [place] [facility] [address] [id number] [place] [address] Nov, [facility] [place] [facility] [address] [id number] [place] [address] Oct, [facility] [place] [facility] [address] [id number] [place] [address] Oct, [facility] [place] [facility] [address] [id number] [place] [address] Oct, [facility] [address] [id number] [place] [address] Oct, 2012 [facility] [place] [facility] [address] [id number] [place] [address] Oct, [facility] [place] [facility] [address] [id number] [place] [address] Oct, [facility] [place] [facility] [address] [id number] [place] [address] Oct, [facility] [place] [facility] [address] [id number] [place] [address] Oct, [facility] [place] [facility] [address] [id number] [place] [address] Oct, [facility] [place] [facility] [address] [id number] [place] [address] Oct, [facility] [place] [facility] [address] [id number] [place] [address] Oct, [facility] [place] [facility] [address] [id number] [place] [address] Oct, [facility] [place] [facility] [address] [id number] [place] [address] 02 Oct, 2013 [facility] [place] [facility] [address] [id number] [place] [address] 02 Oct, 2013 [facility] [place] [facility] [address] [id number] [place] [address] 14 Sep, 2013 [facility] [place] [facility] [address] [id number] [place] [address] 14 Sep, 2013 [facility] [place] [facility] [address] [id number] [place] [address] 05 Sep, 2013 [facility] [place] [facility] [address] [id number] [place] [address] 05 Sep, 2013 [facility] [place] [facility] [address] [id number] [place] [address] Sep, [facility] [place] [facility] [address] [id number] [place] [address] Sep, [facility] [place] [facility] [address] [facility] [id number] [place] [address] Sep, [facility] [place] [facility] [address] [id number] [place] [address] Sep, [facility] [place] [facility] [address] [id number] [place] [address] Sep, [facility] [place] [facility] [address] [id number] [place] [address] Sep, [facility] [place] [facility] [address] [id number] [place] [address] Aug, [facility] [place] [facility] [address] [id number] [place] [address] Aug, [facility] [place] [facility] [address] [id number] [place] [address] Aug, [facility] [place] [facility] [address] [id number] [place] [address] Aug, [facility] [place] [facility] [address] [id number] [place] [address] Aug, [facility] [place] [facility] [address] [id number] [place] [address] Aug, [facility] [place] [facility] [address] [id number] [place] [address] Aug, [facility] [place] [facility] [address] [id number] [place] [address] Aug, [facility] [place] [facility] [address] [facility] [id number] [place] [address] Aug, [facility] [place] [facility] [address] [id number] [place] [address] Aug, [facility] [place] [facility] [address] [id number] [place] [address] Aug, [facility] [place] [facility] [address] [id number] [place] [address] Aug, [facility] [place] [facility] [address] [facility] [id number] [place] [address] 18 Aug, 2013 [facility] [place] [facility] [address] [facility] [id number] [place] [address] 18 Aug, 2013 [facility] [place] [facility] [address] [facility] [id number] [place] [address] 17 Aug, 2013 [facility] [address] [id number] [place] [address] 14 Aug, 2013 [facility] [address] [facility] [id number] [place] [address] 14 Aug, 2013 [facility] [address] [facility] [id number] [place] [address] Aug, [facility] [address] [id number] [place] [address] 20 Jul, 2013 [facility] [address] [id number] [place] [address] 19 Jul, 2013 [facility] [address] [id number] [place] [address] 18 Jul, 2013 [facility] [address] [id number] [place] [address] 11 Jul, 2013 [facility] [address] [id number] [place] [address] 11 Jul, 2013 [facility] [address] [id number] [place] [address] 28 Jun, 2013 [facility] [address] [id number] [place] [address] Jun, [facility] [address] [facility] [id number] [place] [address] 23 Jun, 2013 [facility] [address] [id number] [place] [address] 15 Jun, 2013 [facility] [address] [facility] [id number] [place] [address] 14 Jun, 2013 [facility] [address] [id number] [place] [address] Jun, [facility] [address] [id number] [place] [address] Jun, [facility] [address] [facility] [id number] [facility] [place] [address] Jun, [facility] [address] [facility] [id number] [place] [address] Jun, [facility] [address] [id number] [facility] [address] Jun, [facility] [address] [facility] [id number] [facility] [address] May, [facility] [address] [id number] [place] [address] May, [facility] [address] [id number] [place] [address] May, [facility] [address] [id number] [place] [address] May, [facility] [address] [id number] [place] [address] May, [facility] [address] [id number] [place] [address] May, [facility] [address] [id number] [place] [address] May, [facility] [address] [id number] [place] [address] May, [facility] [address] [facility] [id number] [place] [address] May, [facility] [address] [id number] [place] [address] Apr, [facility] [address] [id number] [place] [address] Apr, [facility] [address] [id number] [place] [address] Apr, [facility] [address] [id number] [place] [address] Apr, [facility] [address] [facility] [id number] [place] [address] Apr, [facility] [address] [id number] [place] [address] Apr, [facility] [address] [id number] [place] [address] Apr, [facility] [address] [id number] [place] [address] March, [facility] [address] [facility] [id number] [facility] [address] Feb, [facility] [address] [id number] [place] [address] Feb, [facility] [address] [id number] [place] [address] Feb, [facility] [address] [id number] [place] [address] Jan, [facility] [address] [id number] [place] [address] Jan, [facility] [address] [id number] [place] [address] Jan, [facility] [address] [id number] [place] [address] Jan, [facility] [address] [id number] [place] [address] Jan, [facility] [address] [id number] [place] [address] 08 Jan, 2013 [facility] [address] [id number] [place] [address] 07 Jan, 2013 [facility] [address] [id number] [place] [address] 04 Jan, 2013 [facility] [address] [id number] [place] [address] 28 Dec, 2012 [facility] [address] [id number] [place] [address] 25 Dec, 2012 [facility] [address] [id number] [place] [address] Dec, [facility] [address] [id number] [place] [address] Dec, [facility] [address] [id number] [place] [address] 07 Dec, 2012 [facility] [address] [id number] [place] [address] 06 Dec, 2012 [facility] [address] [id number] [place] [address] 05 Dec, 2012 [facility] [address] [id number] [place] [address] Nov, [facility] [id number] [place] [address] Nov, [facility] [address] [id number] [place] [address] Nov, [facility] [id number] [place] [address] Nov, [facility] [address] [id number] [place] [address] Nov, [facility] [id number] [place] [address] Nov, [facility] [address] [id number] [place] [address] Nov, [facility] [address] [id number] [place] [address] Oct, [facility] [address] [id number] [place] [address] Oct, [facility] [address] [id number] [place] [address] Oct, [facility] [address] [id number] [place] [address] Oct, [facility] [address] [id number] [place] [address] Oct, [facility] [address] [id number] [place] [address] Oct, [facility] [address] [id number] [place] [address] Oct, [facility] [address] [id number] [place] [address] Oct, [facility] [address] [id number] [place] [address] Oct, [facility] [address] [id number] [place] [address] Oct, [facility] [address] [id number] [place] [address] Oct, [facility] [address] [id number] [place] [address] Oct, [facility] [address] [id number] [place] [address] Sep, [facility] [address] [id number] [place] [address] Sep, [facility] [address] [id number] [place] [address] Sep, [facility] [address] [id number] [place] [address] Sep, [facility] [address] [id number] [place] [address] Sep, [facility] [address] [id number] [place] [address] Sep, [facility] [address] [id number] [place] [address] Sep, [facility] [address] [id number] [place] [address] Sep, [facility] [address] [id number] [place] [address] Sep, [facility] [address] [id number] [place] [address] Sep, [facility] [address] [id number] [place] [address] Sep, [facility] [address] [id number] [place] [address] Aug, [facility] [address] [id number] [place] [address] Aug, [facility] [address] [id number] [place] [address] Aug, [facility] [address] [id number] [place] [address] Aug, [facility] [address] [id number] [place] [address] Aug, [facility] [address] [id number] [place] [address] Aug, [facility] [address] [id number] [place] [address] Aug, [facility] [address] [id number] [place] [address] Aug, [facility] [address] [id number] [place] [address] Aug, [facility] [address] [id number] [place] [address] Aug, [facility] [address] [id number] [place] [address] 22 Jul, 2011 [facility] [address] [id number] [place] [address] 20 Jul, 2011 [facility] [address] [id number] [place] [address] 10 Jul, 2011 [facility] [address] [id number] [place] [address] Jul, [facility] [id number] [place] [address] Jun, [facility] [address] [id number] [place] [address] Jun, [facility] [address] [id number] [place] [address] Jun, [facility] [address] [id number] [place] [address] Jun, [facility] [address] [id number] [place] [address] Jun, [facility] [address] [id number] [place] [address] Jun, [facility] [address] [id number] [place] [address] Jun, [facility] [address] [id number] [place] [address] May, [facility] [address] [id number] [place] [address] May, [facility] [address] [id number] [place] [address] May, [facility] [address] [id number] [place] [address] May, [facility] [address] [id number] [place] [address] May, [facility] [address] [id number] [place] [address] Apr, [facility] [address] [id number] [place] [address] Apr, [facility] [address] [id number] [place] [address] Apr, [facility] [address] [id number] [place] [address] Apr, [facility] [address] [id number] [place] [address] Apr, [facility] [address] [id number] [place] [address] March, [facility] [address] [id number] [place] [address] March, [facility] [address] [id number] [place] [address] March, [facility] [address] [id number] [place] [address] March, [facility] [address] [id number] [place] [address] March, [facility] [address] [id number] [place] [address] March, [facility] [address] [id number] [place] [address] March, [facility] [address] [id number] [place] [address] March, [facility] [address] [id number] [place] [address] March, [facility] [address] [id number] [place] [address] March, [facility] [address] [id number] [place] [address] Feb, [facility] [address] [id number] [place] [address] Feb, [facility] [address] [id number] [place] [address] Feb, [facility] [address] [id number] [place] [address] Feb, [facility] [address] [id number] [place] [address] Feb, [facility] [address] [id number] [place] [address] Feb, [facility] [address] [id number] [place] [address] Feb, [facility] [address] [id number] [place] [address] Feb, [facility] [address] [id number] [place] [address] Feb, [facility] [address] [id number] [place] [address] Jan, [facility] [address] [id number] [place] [address] Jan, [facility] [address] [id number] [place] [address] Jan, [facility] [address] [id number] [place] [address] Jan, [facility] [address] [id number] [place] [address] Dec, [facility] [address] [id number] [place] [address] Dec, [facility] [address] [id number] [place] [address] Nov, [facility] [address] [id number] [place] [address] Nov, [facility] [address] [id number] [place] [address] Nov, [facility] [address] [id number] [place] [address] Nov, [facility] [address] [id number] [place] [address] Nov, [facility] [address] [id number] [place] [address] Oct, [facility] [address] [id number] [place] [address] Oct, [facility] [address] [id number] [place] [address] Oct, [facility] [address] [id number] [place] [address] Oct, [facility] [address] [id number] [place] [address] Oct, [facility] [address] [id number] [place] [address] Oct, [facility] [id number] [place] [address] Oct, [facility] [address] [id number] [place] [address] Oct, [facility] [id number] [place] [address] Sep, IMMUNIZATIONS No Known Immunizations SOCIAL HISTORY Never Assessed REASON FOR VISIT [place] Ativan refill PLAN OF CARE VITAL SIGNS MEDICATIONS Medication Instructions Dosage Frequency Start Date End Date Duration S tatus Lorazepam 0.5 mg Orally Once a day [...] History No Surgical history information Hospitalization History [facility]- Urosepsis, ab d pain and fever, discharged 11/27/2017 11/26/2017 Hospitalization History [facility]- Went Unrepsonsive, Hit head 2017 Hospitalization History [facility]- Back Pain 05/05/201 8
--- OUTSIDE RECORDS SUMMARY | 2020-06-18 15:04 | XMS REPORT ---
Author Author Sanjuanita Abdul Doctor Organization [facility] Address Unknown Phone Unavailable Care Team Providers Care Denture Contour Wire Specialist Name Role Phone Migration, Doctor Unavailable Unavailable PROBLEMS Type Condition ICD9-CM Code LVK94-YO Code Onset Dates Condition S tatus SNOMED Code Problem Coronary artery disease I25.10 Active 33820990 Problem Hypertension I10 Active 0546849 3 Problem Other chronic pain G89.29 Active 8 7848527 Problem Hyperlipidemia E78.5 Active 13163 004 Problem Type 2 diabetes mellitus wit hout complication, without long-term current use of insulin E11.9 Active 333468210 Problem Low back pain M54.5 Active 125030 009 Problem Pharyngeal dysphagia R13.13 Active 32001506759971 Problem Anxiety F41.9 Active 26186287 Problem Peripheral vascular disease I73.9 Ac tive 186407961 Problem Suprapubic catheter Z93.59 Active 774792119 Problem Reactive depression F32.9 Active 92345311 Problem Neurogenic bladder N31.9 Active 3 16366665 Problem Ventral hernia without obstruction or gangrene K43 .9 Active 114803333 Problem Insomnia G47.00 Active 987248657 Problem Paroxysmal atrial fibrillation I48.0 Active 779774536 Problem Postmenopausal atrophic vaginitis 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 Active 54204458 Problem Encounter for suprapubic catheter care Z43.5 Active [id number] ALLERGIES No Information ENCOUNTERS Encounter Location Date Diagnosis [place] [address] [id number] [place] [address] Nov, Hypertension I10 Via [facility] [address] [place] [id number] Nov, Pneumonia of both lungs due to infectiou s organism, unspecified part of lung J18.9 and Suprapubic catheter Z93.59 [place] [address] [facility] [place] [address] Nov, Hypertension I10 and Reactive depression F32.9 [place] [address] [facility] [place] [address] Oct, Strain of right shoulder, subsequent enc ounter S46.911D and Anxiety F41.9 [place] [address] [id number] [place] [address] Oct, Via [facility] [address] [place] [id number] Oct, Suprapubic catheter Z93.59 and Candidias is, intertriginous B37.2 [place] [address] [id number] [place] [address] Oct, Suprapubic catheter Z93.59 [place] [address] [id number] [place] [address] Oct, Anxiety F41.9 and Strain of right should er, subsequent encounter S46.911D [place] [address] [id number] [place] [address] Sep, [place] [address] [id number] [place] [address] Sep, [place] [address] [id number] [place] [address] Sep, Via [facility] [address] [place] [id number] Sep, Suprapubic catheter Z93.59 [place] [address] [id number] [place] [address] Sep, Anxiety F41.9 and Strain of right should er, subsequent encounter S46.911D [place] [address] [id number] [place] [address] Aug, [facility] [address] [id number] [place] [address] Aug, [facility] [address] [id number] [place] [address] Aug, Anxiety F41.9 and Strain of right should er, subsequent encounter S46.911D [facility] [address] [place] [id number] Aug, Suprapubic catheter Z93.59 [place] [address] [address] Jul, Strain of right shoulder, subsequent enc ounter S46.911D and Anxiety F41.9 [place] [address] [address] Jul, Anxiety F41.9 [place] [address] [address] Jun, [place] [address] [address] Jun, [place] [address] [address] Jun, [place] [address] [address] Jun, Strain of right shoulder, subsequent enc ounter S46.911D [place] [address] [address] Jun, Strain of right shoulder, subsequent enc ounter S46.911D [place] [address] [address] Jun, Anxiety F41.9 Via [facility] [address] [place] [address] Jun, Neurogenic bladder N31.9 and Anxiety F41 .9 Via [facility] [address] [place] [id number] May, Anxiety F41.9 [place] [address] [address] May, Dysuria R30.0 [place] [address] [address] May, Strain of right shoulder, subsequent enc ounter S46.911D and Anxiety F41.9 [place] [address] [address] 27 Apr, 2019 Via [facility] [address] [place] [id number] 18 Apr, 2019 Strain of right shoulder, subsequent enc ounter S46.911D [place] [address] [address] 14 Apr, 2019 Strain of right shoulder, subsequent enc ounter S46.911D and Anxiety F41.9 Via [facility] [address] [place] [id number] 13 Apr, 2019 Type 2 diabetes mellitus without complic ation, without long-term current use of insulin E11.9 and Neurogenic bladder N31.9 Via [facility] [address] [place] [id number] 11 Apr, 2019 Strain of right shoulder, subsequent enc ounter S46.911D ; History of GI bleed Z87.19 ; Neurogenic bladder N31.9 and Reactive depression F32.9 [place] [address] [address] 10 Apr, 2019 Acute pain of left shoulder M25.512 [place] [address] [address] 07 Apr, 2019 [place] [address] [address] 06 Apr, 2019 Anxiety F41.9 and Other chronic pain G89 .29 Via [facility] [address] [place] [id number] March, Gastrointestinal hemorrhage associated w ith acute gastritis K29.01 [place] [address] [address] March, Via [facility] [address] [place] [id number] March, Bronchitis J40 [place] [address] [address] March, Cough R05 [place] [address] [address] March, Other chronic pain G89.29 [facility] [address] [address] March, Anxiety F41.9 [facility] [address] [address] March, [facility] [address] [address] Feb, Other chronic pain G89.29 [facility] [address] [address] Feb, Anxiety F41.9 [facility] [address] [address] Feb, Other chronic pain G89.29 Via [facility] [address] [place] [id number] Feb, Neurogenic bladder N31.9 and Suprapubic catheter Z93.59 [facility] [address] [address] Jan, Anxiety F41.9 [facility] [address] [address] Dec, Anxiety F41.9 [facility] [address] [address] Dec, Other chronic pain G89.29 and Anxiety F4 1.9 [facility] [address] [address] Dec, Via [facility] [address] [place] [address] Dec, Neurogenic bladder N31.9 and Suprapubic catheter Z93.59 [facility] [address] [address] Nov, Other chronic pain G89.29 and Anxiety F4 1.9 [facility] [address] [address] Nov, Via [facility] [address] [place] [id number] Nov, Suprapubic catheter Z93.59 [facility] [address] [address] Oct, Other chronic pain G89.29 and Anxiety F4 1.9 [facility] [address] [address] Oct, [facility] [address] [address] Oct, Suprapubic catheter Z93.59 [place] [address] [address] Oct, Via [facility] [address] [place] [id number] Oct, [place] [address] [address] Oct, Anxiety F41.9 [place] [address] [address] Oct, Anxiety F41.9 [facility] [address] [place] [address] Oct, Other chronic pain G89.29 [place] [address] [address] Sep, Other chronic pain G89.29 [facility] [address] [place] [address] Sep, Suprapubic catheter Z93.59 and Cervicalg ia M54.2 [facility] [address] [address] Sep, [facility] [address] [address] Sep, [place] [address] [address] Sep, Via [facility] [address] [place] [address] Aug, Cystitis N30.90 [place] [address] [address] Aug, [place] [address] [address] Aug, Other chronic pain G89.29 [place] [address] [address] Aug, Via [facility] [address] [place] [address] Aug, Encounter for suprapubic catheter care Z 43.5 [place] [address] [address] Jul, [facility] [address] [place] [id number] Jul, [place] [address] [address] Jul, Other chronic pain G89.29 [place] [address] [address] Jul, [place] [address] [address] Jul, [facility] [address] [place] [address] Jun, Postmenopausal atrophic vaginitis N95.2 [place] [address] [address] Jun, Other chronic pain G89.29 [place] [address] [address] Jun, [facility] [address] [place] [id number] May, Anxiety F41.9 ; Type 2 diabetes mellitus without complication, without long-term current use of insulin E11.9 ; Hypertension I10 ; Low back pain M54.5 ; Paroxysmal atrial fibrillation I48.0 and 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 [place] [address] [address] May, Other chronic pain G89.29 [facility] [address] [place] [address] May, Low back pain M54.5 [facility] [address] [address] May, [facility] [address] [address] Apr, Other chronic pain G89.29 [facility] [address] [address] Apr, [facility] [address] [address] Apr, Via [facility] [address] [place] [id number] Apr, Closed compression fracture of L3 lumbar vertebra with routine healing, subsequent encounter S32.030D [facility] [address] [place] [address] Apr, Low back pain M54.5 [facility] [address] [place] [id number] Apr, Coccydynia M53.3 [facility] [address] [address] March, [facility] [address] [address] March, Other chronic pain G89.29 [facility] [address] [address] March, [facility] [address] [address] March, [facility] [address] [address] Feb, [facility] [address] [address] Feb, Other chronic pain G89.29 [facility] [address] [place] [address] Feb, Other chronic pain G89.29 and Anxiety F4 1.9 [place] [address] [place] [address] [id number] [place] [address] Feb, [place] [address] [address] Jan, [place] [address] [address] Jan, [place] [address] [address] Jan, [place] [address] [address] Jan, [place] [address] [address] Dec, Via [employer] [facility] [address] [place] [id number] Dec, Peripheral vascular disease I73.9 ; 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 ; Other chronic pain G89.29 ; Anxiety F41.9 ; Reactive depression F32.9 ; Insomnia G47.00 and Type 2 diabetes mellitus without complication, without long-term current use of insulin E11.[address] [id number] [place] [address] Nov, [place] [address] [id number] [place] [address] Nov, Anxiety F41.9 [place] [address] [address] Nov, [place] [address] [id number] [place] [address] Nov, Anxiety F41.9 Via [employer] [facility] [address] [place] [address] Nov, Status post surgery Z98.890 ; Confused R 41.0 ; Anxiety F41.9 and Other chronic pain G89.29 [place] [address] [id number] [place] [id number] Nov, Other chronic pain G89.29 [facility] [id number] [place] [address] Oct, [facility] [address] [id number] [place] [address] Oct, Other chronic pain G89.29 [facility] [address] [address] Oct, Anxiety F41.9 [facility] [address] [id number] [place] [address] Sep, Other chronic pain G89.29 [facility] [address] [id number] [place] [id number] Sep, Via [facility] [address] [place] [id number] Aug, Dysuria R30.0 and Anxiety F41.9 [facility] [id number] [place] [address] Aug, [facility] [address] [id number] [place] [id number] Aug, Other chronic pain G89.29 [facility] [id number] [place] [address] Jul, Other chronic pain G89.29 [facility] [address] [id number] [place] [id number] Jun, [facility] [address] [id number] [place] [id number] Jun, Other chronic pain G89.29 [facility] [address] [address] Jun, [facility] [address] [address] May, Other chronic pain G89.29 [facility] [address] [address] Apr, Other chronic pain G89.29 [facility] [address] [place] [id number] Apr, Reactive depression F32.9 and Pharyngeal dysphagia R13.13 [place] [address] [address] Apr, Urinary tract infection without hematuri a, site unspecified N39.0 [place] [address] [address] March, Other chronic pain G89.29 [place] [address] [address] Feb, Other chronic pain G89.29 [place] [address] [address] Feb, [place] [address] [id number] [place] [address] Feb, Via [facility] [employer] roll[facility] [address] [place] [id number] Feb, Dysuria R30.0 and Ventral hernia without obstruction or gangrene K43.9 [place] [address] [address] Jan, Other chronic pain G89.29 [place] [address] [id number] [place] [address] Dec, Other chronic pain G89.29 [place] [address] [address] Nov, Other chronic pain G89.29 [facility] [address] [place] [id number] Nov, Lymphadenitis I88.9 [place] [address] [address] Nov, Other chronic pain G89.29 [place] [address] [address] Nov, [facility] [address] [id number] [place] [address] Nov, Other chronic pain G89.29 [facility] [address] [place] [id number] Oct, Low back pain M54.5 ; Hypertension I10 a nd Type 2 diabetes mellitus without complication, without long-term current use of insulin E11.9 [facility] [id number] [place] [address] Oct, [facility] [address] [place] [address] Oct, [facility] [address] [address] Oct, [facility] [id number] [place] [address] Oct, [facility] [address] [address] Sep, [facility] [id number] [place] [address] Sep, [facility] [address] [place] [address] Aug, Other chronic pain G89.29 [facility] [id number] [place] [address] Jul, [facility] [address] [place] [address] Jul, [facility] [id number] [place] [address] Jul, [facility] [address] [address] Jun, [facility] [address] [place] [address] Jun, Via [facility] [address] [place] [address] Jun, Low back pain M54.5 ; Other chronic pain G89.29 and Coronary artery disease I25.10 [facility] [id number] [place] [address] Jun, [facility] [address] [facility] [place] [address] May, [facility] [address] [place] [address] May, [facility] [address] [address] May, Other chronic pain G89.29 [facility] [id number] [place] [address] May, [facility] [id number] [place] [address] Apr, [facility] [address] [address] Apr, Acute cystitis without hematuria N30.00 [facility] [address] [place] [address] 16 Apr, 2016 Acute cystitis without hematuria N30.00 ; Coronary artery disease I25.10 ; Low back pain M54.5 and Other chronic pain G89.29 [facility] [id number] [place] [address] Apr, Other chronic pain G89.29 [facility] [address] [place] [address] March, Other chronic pain G89.29 [facility] [id number] [place] [address] Feb, [facility] [address] [address] Feb, Arthritis M19.90 [facility] [address] [place] [address] Feb, [facility] [address] [address] Jan, [facility] [address] [address] Jan, [facility] [address] [address] Jan, Other chronic pain G89.29 [facility] [address] [address] Jan, Hypertension I10 ; Coronary artery disea se I25.10 and Insomnia G47.00 [facility] [address] [address] Jan, [facility] [address] [address] Dec, Right hip pain M25.551 [facility] [address] [address] Dec, [facility] [address] [address] Dec, [facility] [address] [address] Dec, [facility] [address] [address] Dec, Other chronic pain G89.29 [facility] [address] [address] Dec, [facility] [address] [address] Nov, [facility] [address] [address] Nov, Other chronic pain G89.29 [facility] [address] [address] Nov, Right hip pain M25.551 and Coronary karissa ry disease I25.10 [facility] [address] [address] Nov, Other chronic pain G89.29 [facility] [address] [address] Oct, [facility] [address] [address] Oct, [facility] [address] [address] Sep, [facility] [address] [address] Sep, [facility] [address] [address] Aug, [facility] [address] [address] Aug, Hypertension I10 ; Coronary artery disea se I25.10 and Arthritis M19.90 [facility] [address] [address] Jun, [facility] [address] [address] Jun, Essential hypertension, benign 401.1 ; O ther chronic pain 338.29 and Chronic airway obstruction, not elsewhere classified 496 [facility] [address] [address] Jun, [facility] [address] [address] Jun, [facility] [address] [address] Jun, [facility] [address] [address] May, [facility] [address] [address] May, [facility] [address] [address] Apr, [facility] [address] [address] Apr, [facility] [address] [id number] [place] [address] Apr, [facility] [address] [id number] [place] [address] March, [facility] [address] [id number] [place] [address] March, [facility] [address] [id number] [place] [address] March, [facility] [address] [id number] [place] [address] March, [facility] [address] [id number] [place] [address] March, Sialadenitis 527.2 [facility] [address] [id number] [place] [address] Feb, [facility] [address] [id number] [place] [address] Feb, [facility] [address] [id number] [place] [address] Feb, [facility] [address] [id number] [place] [address] Feb, [facility] [address] [id number] [place] [address] Feb, [facility] [address] [id number] [place] [address] Jan, [facility] [address] [id number] [place] [address] Jan, [facility] [address] [id number] [place] [address] Jan, [facility] [address] [id number] [place] [address] Jan, [facility] [address] [id number] [place] [address] 06 Jan, 2015 [facility] [address] [id number] [place] [address] Jan, [facility] [address] [id number] [place] [address] Dec, [facility] [address] [id number] [place] [address] Dec, [facility] [address] [id number] [place] [address] Dec, [facility] [address] [id number] [place] [address] Dec, [facility] [address] [id number] [place] [address] Dec, [facility] [address] [id number] [place] [address] Dec, [facility] [address] [id number] [place] [address] Nov, [facility] [address] [id number] [place] [address] Nov, [facility] [address] [id number] [place] [address] Nov, [facility] [address] [id number] [place] [address] Nov, [facility] [address] [id number] [place] [address] Nov, [facility] [address] [id number] [place] [address] Nov, [facility] [address] [id number] [place] [address] Nov, [facility] [address] [id number] [place] [address] Nov, [facility] [address] [id number] [place] [address] Nov, [facility] [address] [id number] [place] [address] Nov, [facility] [address] [id number] [place] [address] Nov, [facility] [address] [id number] [place] [address] Nov, [facility] [facility] [address] [id number] [place] [address] Nov, [facility] [place] [facility] [address] [id number] [place] [address] Nov, [facility] [place] [facility] [address] [id number] [place] [address] Oct, [facility] [place] [facility] [address] [id number] [place] [address] Oct, [facility] [place] [facility] [address] [id number] [place] [address] Oct, [facility] [place] [facility] [address] [id number] [place] [address] Oct, [facility] [place] [facility] [address] [id number] [place] [address] Oct, [facility] [place] [facility] [address] [id number] [place] [address] Oct, [facility] [place] [facility] [address] [id number] [place] [address] Oct, [facility] [place] [facility] [address] [id number] [place] [address] Oct, [facility] [place] [facility] [address] [id number] [place] [address] Oct, [facility] [place] [facility] [address] [id number] [place] [address] Sep, [facility] [place] [facility] [address] [id number] [place] [address] Sep, [facility] [place] [facility] [address] [id number] [place] [address] Sep, [facility] [place] [facility] [address] [id number] [place] [address] Sep, [facility] [place] [facility] [address] [facility] [id number] [place] [address] Sep, [facility] [place] [facility] [address] [id number] [place] [address] Sep, [facility] [place] [facility] [address] [id number] [place] [address] Sep, [facility] [place] [facility] [address] [id number] [place] [address] Sep, [facility] [place] [facility] [address] [facility] [id number] [place] [address] Sep, [facility] [place] [facility] [address] [id number] [place] [address] Sep, [facility] [place] [facility] [address] [id number] [place] [address] Sep, [facility] [place] [facility] [address] [id number] [place] [address] Sep, [facility] [place] [facility] [address] [id number] [place] [address] Aug, [facility] [place] [facility] [address] [id number] [place] [address] Aug, [facility] [place] [facility] [address] [id number] [place] [address] Aug, [facility] [place] [facility] [address] [id number] [place] [address] Aug, [facility] [place] [facility] [address] [id number] [place] [address] Aug, [facility] [place] [facility] [address] [id number] [place] [address] Aug, [facility] [place] [facility] [address] [id number] [place] [address] Aug, [facility] [place] [facility] [address] [id number] [place] [address] Aug, [facility] [place] [facility] [address] [id number] [facility] [address] 30 Jul, 2013 [facility] [place] [facility] [address] [id number] [facility] [address] 30 Jul, 2013 [facility] [place] [facility] [address] [facility] [id number] [place] [address] 30 Jul, 2013 [facility] [place] [facility] [address] [id number] [place] [address] 30 Jul, 2013 [facility] [place] [facility] [address] [facility] [id number] [place] [address] 25 Jul, 2013 [facility] [place] [facility] [address] [id number] [facility] [address] 25 Jul, 2013 [facility] [place] [facility] [address] [id number] [place] [address] 15 Jul, 2014 [facility] [place] [facility] [address] [id number] [place] [address] 15 Jul, 2014 [facility] [place] [facility] [address] [id number] [place] [address] Jul, [facility] [place] [facility] [address] [id number] [place] [address] Jul, [facility] [place] [facility] [address] [id number] [place] [address] Jun, [facility] [place] [facility] [address] [id number] [place] [address] Jun, [facility] [place] [facility] [address] [id number] [place] [address] Jun, [facility] [place] [facility] [address] [id number] [place] [address] Jun, [facility] [place] [facility] [address] [id number] [place] [address] Jun, [facility] [place] [facility] [address] [id number] [place] [address] Jun, [facility] [place] [facility] [address] [id number] [place] [address] Jun, [facility] [place] [facility] [address] [id number] [place] [address] Jun, [facility] [place] [facility] [address] [id number] [place] [address] Jun, [facility] [place] [facility] [address] [facility] [id number] [place] [address] Jun, [facility] [place] [facility] [address] [id number] [place] [address] Jun, [facility] [place] [facility] [address] [facility] [id number] [place] [address] Jun, [facility] [place] [facility] [address] [id number] [place] [address] Jun, [facility] [place] [facility] [address] [id number] [place] [address] Jun, [facility] [place] [facility] [address] [id number] [place] [address] Jun, [facility] [place] [facility] [address] [id number] [place] [address] Jun, [facility] [place] [facility] [address] [id number] [place] [address] Jun, [facility] [place] [facility] [address] [id number] [place] [address] Jun, [facility] [place] [facility] [address] [id number] [place] [address] Jun, [facility] [place] [facility] [address] [id number] [place] [address] Jun, [facility] [place] [facility] [address] [id number] [place] [address] Jun, [facility] [place] [facility] [address] [id number] [place] [address] Jun, [facility] [place] [facility] [address] [id number] [place] [address] May, [facility] [place] [facility] [address] [id number] [place] [address] May, 2013 [facility] [place] [facility] [address] [id number] [facility] [address] May, 2013 [facility] [place] [facility] [address] [id number] [place] [address] May, [facility] [place] [facility] [address] [facility] [id number] [facility] [address] May, 2013 [facility] [place] [facility] [address] [id number] [place] [address] May, 2013 [facility] [place] [facility] [address] [facility] [id number] [place] [address] May, 2013 [facility] [place] [facility] [address] [id number] [place] [address] May, 2013 [facility] [place] [facility] [address] [facility] [id number] [facility] [address] May, 2013 [facility] [place] [facility] [address] [id number] [facility] [address] May, [facility] [place] [facility] [address] [facility] [id number] [facility] [address] May, [facility] [place] [facility] [address] [facility] [id number] [facility] [address] May, [facility] [place] [facility] [address] [facility] [id number] [facility] [address] May, [facility] [place] [facility] [address] [id number] [place] [address] Apr, [facility] [place] [facility] [address] [facility] [id number] [facility] [address] Apr, [facility] [place] [facility] [address] [id number] [facility] [address] Apr, [facility] [place] [facility] [address] [facility] [id number] [place] [address] Apr, [facility] [place] [facility] [address] [id number] [facility] [address] Apr, [facility] [place] [facility] [address] [facility] [id number] [place] [address] Apr, [facility] [place] [facility] [address] [id number] [facility] [address] Apr, [facility] [place] [facility] [address] [facility] [id number] [place] [address] Apr, [facility] [place] [facility] [address] [id number] [place] [address] Apr, [facility] [place] [facility] [address] [id number] [place] [address] March, [facility] [place] [facility] [address] [facility] [id number] [place] [address] March, [facility] [place] [facility] [address] [id number] [place] [address] March, [facility] [place] [facility] [address] [id number] [place] [address] March, [facility] [place] [facility] [address] [id number] [place] [address] March, [facility] [place] [facility] [address] [id number] [place] [address] March, [facility] [place] [facility] [address] [id number] [place] [address] March, [facility] [place] [facility] [address] [id number] [place] [address] March, [facility] [place] [facility] [address] [id number] [place] [address] March, [facility] [place] [facility] [address] [facility] [id number] [place] [address] March, [facility] [place] [facility] [address] [id number] [place] [address] March, [facility] [place] [facility] [address] [id number] [place] [address] March, [facility] [place] [facility] [address] [id number] [place] [address] March, [facility] [place] [facility] [address] [id number] [place] [address] March, [facility] [place] [facility] [address] [id number] [place] [address] March, [facility] [place] [facility] [address] [id number] [place] [address] March, [facility] [place] [facility] [address] [id number] [place] [address] March, [facility] [place] [facility] [address] [id number] [place] [address] March, [facility] [place] [facility] [address] [id number] [place] [address] March, [facility] [place] [facility] [address] [id number] [place] [address] March, [facility] [place] [facility] [address] [id number] [place] [address] Feb, [facility] [place] [facility] [address] [id number] [place] [address] Feb, [facility] [place] [facility] [address] [id number] [place] [address] Feb, [facility] [place] [facility] [address] [id number] [place] [address] Feb, [facility] [place] [facility] [address] [id number] [place] [address] Feb, [facility] [place] [facility] [address] [id number] [place] [address] Feb, [facility] [place] [facility] [address] [id number] [place] [address] Feb, [facility] [place] [facility] [address] [id number] [place] [address] Feb, [facility] [place] [facility] [address] [id number] [place] [address] Jan, [facility] [place] [facility] [address] [id number] [place] [address] Jan, [facility] [place] [facility] [address] [facility] [id number] [facility] [address] Jan, [facility] [place] [facility] [address] [facility] [id number] [place] [address] 24 Jan, 2014 [facility] [place] [facility] [address] [facility] [id number] [facility] [address] Jan, [facility] [place] [facility] [address] [facility] [id number] [place] [address] Jan, [facility] [place] [facility] [address] [facility] [id number] [place] [address] Jan, [facility] [place] [facility] [address] [id number] [place] [address] Jan, [facility] [place] [facility] [address] [id number] [facility] [address] Jan, [facility] [place] [facility] [address] [id number] [facility] [address] Jan, [facility] [place] [facility] [address] [facility] [id number] [place] [address] 27 Dec, 2013 [facility] [place] [facility] [address] [id number] [facility] [address] Dec, [facility] [place] [facility] [address] [id number] [facility] [address] Dec, [facility] [place] [facility] [address] [id number] [facility] [address] 2013 [facility] [place] [facility] [address] [facility] [id number] [facility] [address] 2013 [facility] [place] [facility] [address] [id number] [place] [address] 13 Dec, 2013 [facility] [place] [facility] [address] [id number] [facility] [address] 12 Dec, 2013 [facility] [place] [facility] [address] [id number] [facility] [address] Dec, [facility] [place] [facility] [address] [id number] [place] [address] 29 Nov, 2013 [facility] [place] [facility] [address] [id number] [place] [address] Nov, [facility] [place] [facility] [address] [id number] [place] [address] Nov, [facility] [place] [facility] [address] [id number] [place] [address] Nov, [facility] [place] [facility] [address] [id number] [place] [address] Nov, [facility] [place] [facility] [address] [id number] [place] [address] Nov, [facility] [place] [facility] [address] [id number] [place] [address] Nov, [facility] [place] [facility] [address] [id number] [place] [address] Nov, [facility] [place] [facility] [address] [id number] [place] [address] Nov, [facility] [place] [facility] [address] [id number] [place] [address] Nov, [facility] [place] [facility] [address] [id number] [place] [address] Nov, [facility] [place] [facility] [address] [id number] [place] [address] Nov, [facility] [place] [facility] [address] [id number] [place] [address] Nov, [facility] [place] [facility] [address] [id number] [place] [address] Oct, [facility] [place] [facility] [address] [id number] [place] [address] Oct, [facility] [place] [facility] [address] [id number] [place] [address] Oct, [facility] [place] [facility] [address] [id number] [place] [address] Oct, [facility] [address] [id number] [place] [address] Oct, [facility] [place] [facility] [address] [id number] [place] [address] Oct, [facility] [place] [facility] [address] [id number] [place] [address] Oct, [facility] [place] [facility] [address] [id number] [place] [address] Oct, [facility] [place] [facility] [address] [id number] [place] [address] Oct, [facility] [place] [facility] [address] [id number] [place] [address] Oct, [facility] [place] [facility] [address] [id number] [place] [address] Oct, [facility] [place] [facility] [address] [id number] [place] [address] Oct, [facility] [place] [facility] [address] [id number] [place] [address] Oct, [facility] [place] [facility] [address] [id number] [place] [address] Oct, [facility] [place] [facility] [address] [id number] [place] [address] 14 Sep, 2013 [facility] [place] [facility] [address] [id number] [place] [address] Sep, [facility] [place] [facility] [address] [id number] [place] [address] 05 Sep, 2013 [facility] [place] [facility] [address] [id number] [place] [address] 05 Sep, 2013 [facility] [place] [facility] [address] [id number] [place] [address] Sep, [facility] [place] [facility] [address] [id number] [place] [address] Sep, [facility] [place] [facility] [address] [id number] [place] [address] Sep, [facility] [place] [facility] [address] [facility] [id number] [place] [address] Sep, [facility] [place] [facility] [address] [id number] [place] [address] Sep, [facility] [place] [facility] [address] [id number] [place] [address] Sep, [facility] [place] [facility] [address] [id number] [place] [address] Aug, [facility] [place] [facility] [address] [facility] [id number] [place] [address] Aug, [facility] [place] [facility] [address] [id number] [place] [address] Aug, [facility] [place] [facility] [address] [id number] [place] [address] Aug, [facility] [place] [facility] [address] [id number] [place] [address] Aug, [facility] [place] [facility] [address] [id number] [place] [address] Aug, [facility] [place] [facility] [address] [id number] [place] [address] Aug, [facility] [place] [facility] [address] [id number] [place] [address] Aug, [facility] [place] [facility] [address] [id number] [place] [address] Aug, [facility] [place] [facility] [address] [facility] [id number] [place] [address] Aug, [facility] [place] [facility] [address] [id number] [place] [address] Aug, [facility] [place] [facility] [address] [id number] [place] [address] Aug, [facility] [place] [facility] [address] [id number] [place] [address] Aug, [facility] [place] [facility] [address] [id number] [place] [address] 18 Aug, 2013 [facility] [place] [facility] [address] [facility] [id number] [place] [address] 17 Aug, 2013 [facility] [place] [facility] [address] [facility] [id number] [place] [address] 14 Aug, 2013 [facility] [place] [facility] [address] [id number] [place] [address] 14 Aug, 2013 [facility] [place] [address] [facility] [id number] [place] [address] Aug, [facility] [address] [facility] [id number] [place] [address] 20 Jul, 2013 [facility] [address] [id number] [place] [address] 19 Jul, 2013 [facility] [address] [id number] [place] [address] 18 Jul, 2013 [facility] [address] [id number] [place] [address] Jul, [facility] [address] [facility] [id number] [place] [address] Jul, [facility] [address] [id number] [place] [address] 28 Jun, 2013 [facility] [address] [id number] [place] [address] Jun, [facility] [address] [id number] [place] [address] 23 Jun, 2013 [facility] [address] [facility] [id number] [place] [address] 15 Jun, 2013 [facility] [address] [id number] [place] [address] 14 Jun, 2013 [facility] [address] [id number] [place] [address] Jun, [facility] [address] [id number] [place] [address] Jun, [facility] [address] [id number] [place] [address] Jun, [facility] [address] [facility] [id number] [facility] [address] Jun, [facility] [address] [facility] [id number] [place] [address] Jun, [facility] [address] [id number] [place] [address] May, [facility] [address] [facility] [id number] [facility] [place] [address] May, [facility] [address] [id number] [place] [address] May, [facility] [address] [id number] [place] [address] May, [facility] [address] [id number] [place] [address] May, [facility] [address] [id number] [place] [address] May, [facility] [address] [id number] [place] [address] May, [facility] [address] [id number] [place] [address] May, [facility] [address] [id number] [place] [address] May, [facility] [address] [facility] [id number] [place] [address] Apr, [facility] [address] [facility] [id number] [place] [address] Apr, [facility] [address] [id number] [place] [address] Apr, [facility] [address] [id number] [place] [address] Apr, [facility] [address] [id number] [place] [address] Apr, [facility] [address] [facility] [id number] [facility] [address] Apr, [facility] [address] [id number] [place] [address] Apr, [facility] [address] [id number] [place] [address] March, [facility] [address] [id number] [place] [address] Feb, [facility] [address] [id number] [place] [address] Feb, [facility] [address] [id number] [place] [address] Feb, [facility] [address] [id number] [place] [address] Jan, [facility] [address] [id number] [place] [address] Jan, [facility] [address] [id number] [place] [address] Jan, [facility] [address] [id number] [place] [address] Jan, [facility] [address] [id number] [place] [address] Jan, [facility] [address] [id number] [place] [address] Jan, [facility] [address] [id number] [place] [address] Jan, [facility] [address] [id number] [place] [address] Jan, [facility] [address] [id number] [place] [address] Dec, [facility] [address] [id number] [place] [address] Dec, [facility] [address] [id number] [place] [address] 13 Dec, 2012 [facility] [address] [id number] [place] [address] Dec, [facility] [address] [id number] [place] [address] 07 Dec, 2012 [facility] [address] [id number] [place] [address] Dec, [facility] [address] [id number] [place] [address] Dec, [facility] [address] [id number] [place] [address] Nov, [facility] [address] [id number] [place] [address] Nov, [facility] [address] [id number] [place] [address] Nov, [facility] [address] [id number] [place] [address] Nov, [facility] [address] [id number] [place] [address] Nov, [facility] [address] [id number] [place] [address] Nov, [facility] [address] [id number] [place] [address] Nov, [facility] [address] [id number] [place] [address] Oct, [facility] [address] [id number] [place] [address] Oct, [facility] [address] [id number] [place] [address] Oct, [facility] [address] [id number] [place] [address] Oct, [facility] [address] [id number] [place] [address] Oct, [facility] [address] [id number] [place] [address] Oct, [facility] [address] [id number] [place] [address] Oct, [facility] [address] [id number] [place] [address] Oct, [facility] [address] [id number] [place] [address] Oct, [facility] [address] [id number] [place] [address] Oct, [facility] [address] [id number] [place] [address] Oct, [facility] [address] [id number] [place] [address] Oct, [facility] [address] [id number] [place] [address] Sep, [facility] [address] [id number] [place] [address] Sep, [facility] [address] [id number] [place] [address] Sep, [facility] [address] [id number] [place] [address] Sep, [facility] [address] [id number] [place] [address] Sep, [facility] [address] [id number] [place] [address] Sep, [facility] [address] [id number] [place] [address] Sep, [facility] [address] [id number] [place] [address] Sep, [facility] [address] [id number] [place] [address] Sep, [facility] [address] [id number] [place] [address] Sep, [facility] [address] [id number] [place] [address] Sep, [facility] [address] [id number] [place] [address] Aug, [facility] [address] [id number] [place] [address] Aug, [facility] [address] [id number] [place] [address] Aug, [facility] [address] [id number] [place] [address] Aug, [facility] [address] [id number] [place] [address] Aug, [facility] [address] [id number] [place] [address] Aug, [facility] [address] [id number] [place] [address] Aug, [facility] [address] [id number] [place] [address] Aug, [facility] [address] [id number] [place] [address] Aug, [facility] [address] [id number] [place] [address] Aug, [facility] [address] [id number] [place] [address] Jul, [facility] [address] [id number] [place] [address] 20 Jul, 2012 [facility] [address] [id number] [place] [address] Jul, [facility] [address] [id number] [place] [address] 06 Jul, 2012 [facility] [address] [id number] [place] [address] Jun, [facility] [id number] [place] [address] Jun, [facility] [address] [id number] [place] [address] Jun, [facility] [address] [id number] [place] [address] Jun, [facility] [address] [id number] [place] [address] Jun, [facility] [address] [id number] [place] [address] Jun, [facility] [address] [id number] [place] [address] Jun, [facility] [address] [id number] [place] [address] May, [facility] [address] [id number] [place] [address] May, [facility] [address] [id number] [place] [address] May, [facility] [address] [id number] [place] [address] May, [facility] [address] [id number] [place] [address] May, [facility] [address] [id number] [place] [address] Apr, [facility] [address] [id number] [place] [address] Apr, [facility] [address] [id number] [place] [address] Apr, [facility] [address] [id number] [place] [address] Apr, [facility] [address] [id number] [place] [address] Apr, [facility] [address] [id number] [place] [address] March, [facility] [address] [id number] [place] [address] March, [facility] [address] [id number] [place] [address] March, [facility] [address] [id number] [place] [address] March, [facility] [address] [id number] [place] [address] March, [facility] [address] [id number] [place] [address] March, [facility] [address] [id number] [place] [address] March, [facility] [address] [id number] [place] [address] March, [facility] [address] [id number] [place] [address] March, [facility] [address] [id number] [place] [address] March, [facility] [address] [id number] [place] [address] 30 Feb, 2012 [facility] [address] [id number] [place] [address] Feb, [facility] [address] [id number] [place] [address] Feb, [facility] [address] [id number] [place] [address] Feb, [facility] [address] [id number] [place] [address] Feb, [facility] [address] [id number] [place] [address] Feb, [facility] [address] [id number] [place] [address] Feb, [facility] [address] [id number] [place] [address] Feb, [facility] [address] [id number] [place] [address] Feb, [facility] [address] [id number] [place] [address] 08 Jan, 2012 [facility] [address] [id number] [place] [address] Jan, [facility] [address] [id number] [place] [address] Jan, [facility] [address] [id number] [place] [address] Jan, [facility] [address] [id number] [place] [address] Dec, [facility] [address] [id number] [place] [address] Dec, [facility] [address] [id number] [place] [address] Nov, [facility] [address] [id number] [place] [address] Nov, [facility] [address] [id number] [place] [address] Nov, [facility] [address] [id number] [place] [address] Nov, [facility] [address] [id number] [place] [address] Nov, [facility] [address] [id number] [place] [address] Oct, [facility] [address] [id number] [place] [address] Oct, [facility] [address] [id number] [place] [address] Oct, [facility] [address] [id number] [place] [address] Oct, [facility] [address] [id number] [place] [address] Oct, [facility] [address] [id number] [place] [address] Oct, [facility] [address] [id number] [place] [address] Oct, [facility] [address] [id number] [place] [address] Oct, [facility] [address] [id number] [place] [address] Sep, IMMUNIZATIONS No Known Immunizations SOCIAL HISTORY Never Assessed REASON FOR VISIT PLAN OF CARE VITAL SIGNS Height 62 in 2014-06-02 Weight 189.38 lbs 2014-06-02 Temperature 98.6 degrees Fahrenheit 2014-06-02 Heart Rate 88 bpm 2014-06-02 Respiratory Rate 28 2014-06-02 Blood pressure systolic 148 mmHg 2014-06-02 Blood pressure diastolic 80 mmHg 2014-06-02 MEDICATIONS Unknown Medications RESULTS No Results PROCEDURES [...] History No Surgical history information Hospitalization History [facility]- Urosepsis, ab d pain and fever, discharged 11/27/2017 11/26/2017 Hospitalization History [facility]- Went Unrepsonsive, Hit head 2017 Hospitalization History [facility]- Back Pain 05/05/ 8
--- OUTSIDE RECORDS SUMMARY | 2020-06-18 15:05 | XMS REPORT ---
Author Author Sanjuanita JOHNSON [facility] Address [address] [place] [address] Care Team Providers Care Car Inspector Name Role Phone ELIZABETH SHARIF Unavailable PROBLEMS Type Condition ICD9-CM Code KVI44-SO Code Onset Dates Condition S tatus SNOMED Code Problem Coronary artery disease I25.10 Active 86994270 Problem Hypertension I10 Active 1677489 3 Problem Other chronic pain G89.29 Active 8 0220770 Problem Hyperlipidemia E78.5 Active 83148 004 Problem Type 2 diabetes mellitus wit hout complication, without long-term current use of insulin E11.9 Active 264028913 Problem Low back pain M54.5 Active 135110 009 Problem Pharyngeal dysphagia R13.13 Active 48089799761173 Problem Anxiety F41.9 Active 97094510 Problem Peripheral vascular disease I73.9 Ac tive 786369188 Problem Suprapubic catheter Z93.59 Active 027451139 Problem Reactive depression F32.9 Active 27413916 Problem Neurogenic bladder N31.9 Active 3 97534516 Problem Ventral hernia without obstruction or gangrene K43 .9 Active 220649707 Problem Insomnia G47.00 Active 834222429 Problem Paroxysmal atrial fibrillation I48.0 Active 064786616 Problem Postmenopausal atrophic vaginitis N95.2 Active 10283786 Problem Encounter for suprapubic catheter care Z43.5 Active [id number] ALLERGIES No Information ENCOUNTERS Encounter Location Date Diagnosis [facility] [address] [facility] [place] [address] Nov, Hypertension I10 Via [facility] [address] [place] [address] Nov, Pneumonia of both lungs due to infectiou s organism, unspecified part of lung J18.9 and Suprapubic catheter Z93.59 [facility] [address] [facility] [place] [address] Nov, Hypertension I10 and Reactive depression F32.9 [facility] [address] [address] Oct, Strain of right shoulder, subsequent enc ounter S46.911D and Anxiety F41.9 [facility] [address] [address] Oct, Via [facility] [address] [place] [address] Oct, Suprapubic catheter Z93.59 and Candidias is, intertriginous B37.2 [place] [address] [address] Oct, Suprapubic catheter Z93.59 [place] [address] [address] Oct, Anxiety F41.9 and Strain of right should er, subsequent encounter S46.911D [place] [address] [address] Sep, [facility] [address] [address] Sep, [place] [address] [address] Sep, Via [facility] [address] [place] [address] Sep, Suprapubic catheter Z93.59 [place] [address] [address] Sep, Anxiety F41.9 and Strain of right should er, subsequent encounter S46.911D [facility] [address] [address] Aug, [facility] [address] [address] Aug, [facility] [address] [address] Aug, Anxiety F41.9 and Strain of right should er, subsequent encounter S46.911D Via [facility] [address] [place] [address] Aug, Suprapubic catheter Z93.59 [place] [address] [address] Jul, Strain of right shoulder, subsequent enc ounter S46.911D and Anxiety F41.9 [place] [address] [address] Jul, Anxiety F41.9 [place] [address] [address] Jun, [place] [address] [address] Jun, [place] [address] [address] Jun, [place] [address] [address] Jun, Strain of right shoulder, subsequent enc ounter S46.911D [place] [address] [address] Jun, Strain of right shoulder, subsequent enc ounter S46.911D [place] [address] [address] Jun, Anxiety F41.9 Via [facility] [address] [place] [address] Jun, Neurogenic bladder N31.9 and Anxiety F41 .9 Via [facility] [address] [place] [address] May, Anxiety F41.9 [place] [address] [address] May, Dysuria R30.0 [place] [address] [address] May, Strain of right shoulder, subsequent enc ounter S46.911D and Anxiety F41.9 [place] [address] [address] 27 Apr, 2019 Via [facility] [address] [place] [address] Apr, Strain of right shoulder, subsequent enc ounter S46.911D [place] [address] [address] 14 Apr, 2019 Strain of right shoulder, subsequent enc ounter S46.911D and Anxiety F41.9 [facility] [address] [place] [address] 13 Apr, 2019 Type 2 diabetes mellitus without complic ation, without long-term current use of insulin E11.9 and Neurogenic bladder N31.9 Via [facility] [address] [place] [address] 11 Apr, 2019 Strain of right shoulder, subsequent enc ounter S46.911D ; History of GI bleed Z87.19 ; Neurogenic bladder N31.9 and Reactive depression F32.9 [place] [address] [address] 10 Apr, 2019 Acute pain of left shoulder M25.512 [place] [address] [address] 07 Apr, 2019 [place] [address] [address] Apr, Anxiety F41.9 and Other chronic pain G89 .29 [facility] [address] [place] [address] March, Gastrointestinal hemorrhage associated w ith acute gastritis K29.01 [place] [address] [address] March, [facility] [address] [place] [address] March, Bronchitis J40 [place] [address] [address] March, Cough R05 [facility] [address] [address] March, Other chronic pain G89.29 [facility] [address] [address] March, Anxiety F41.9 [facility] [address] [address] March, [facility] [address] [address] Feb, Other chronic pain G89.29 [facility] [address] [address] Feb, Anxiety F41.9 [facility] [address] [address] Feb, Other chronic pain G89.29 Via [facility] [address] [place] [address] Feb, Neurogenic bladder N31.9 and Suprapubic catheter Z93.59 [facility] [address] [address] Jan, Anxiety F41.9 [facility] [address] [address] Dec, Anxiety F41.9 [facility] [address] [address] Dec, Other chronic pain G89.29 and Anxiety F4 1.9 [facility] [address] [address] Dec, Via [facility] [address] [place] [address] Dec, Neurogenic bladder N31.9 and Suprapubic catheter Z93.59 [facility] [address] [address] Nov, Other chronic pain G89.29 and Anxiety F4 1.9 [facility] [address] [address] Nov, Via [facility] [address] [place] [address] Nov, Suprapubic catheter Z93.59 [facility] [address] [address] Oct, Other chronic pain G89.29 and Anxiety F4 1.9 [facility] [address] [address] Oct, [facility] [address] [address] Oct, Suprapubic catheter Z93.59 [place] [address] [address] Oct, Via [facility] [address] [place] [address] Oct, [facility] [address] [address] Oct, Anxiety F41.9 [place] [address] [address] Oct, Anxiety F41.9 Via [facility] [address] [place] [address] Oct, Other chronic pain G89.29 [facility] [address] [address] Sep, Other chronic pain G89.29 Via [facility] [address] [place] [address] Sep, Suprapubic catheter Z93.59 and Cervicalg ia M54.2 [facility] [address] [address] Sep, [facility] [address] [address] Sep, [facility] [address] [address] Sep, Via [facility] [address] [place] [address] Aug, Cystitis N30.90 [place] [address] [address] Aug, [place] [address] [address] Aug, Other chronic pain G89.29 [place] [address] [address] Aug, [facility] [address] [place] [address] Aug, Encounter for suprapubic catheter care Z 43.5 [place] [address] [address] Jul, [facility] [address] [place] [address] Jul, [place] [address] [address] Jul, Other chronic pain G89.29 [place] [address] [address] Jul, [place] [address] [address] Jul, Via [facility] [address] [place] [address] Jun, Postmenopausal atrophic vaginitis N95.2 [place] [address] [address] Jun, Other chronic pain G89.29 [place] [address] [address] Jun, Via [facility] [address] [place] [address] May, Anxiety F41.9 ; Type 2 diabetes mellitus without complication, without long-term current use of insulin E11.9 ; Hypertension I10 ; Low back pain M54.5 ; Paroxysmal atrial fibrillation I48.0 and 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 [facility] [address] [place] [address] [place] [address] May, Other chronic pain G89.29 [facility] [address] [place] [address] May, Low back pain M54.5 [facility] [address] [address] May, [facility] [address] [address] Apr, Other chronic pain G89.29 [facility] [address] [address] Apr, [facility] [address] [address] Apr, Via [facility] [address] [place] [address] Apr, Closed compression fracture of L3 lumbar vertebra with routine healing, subsequent encounter S32.030D [facility] [address] [place] [address] Apr, Low back pain M54.5 [facility] [address] [place] [address] Apr, Coccydynia M53.3 [facility] [address] [address] March, [facility] [address] [address] March, Other chronic pain G89.29 [facility] [address] [place] [address] [place] [address] March, [facility] [address] [address] March, [facility] [address] [address] Feb, [facility] [address] [address] Feb, Other chronic pain G89.29 Via [facility] [address] [place] [address] Feb, Other chronic pain G89.29 and Anxiety F4 1.9 [facility] [address] [address] Feb, [facility] [address] [address] Jan, [facility] [address] [address] Jan, [facility] [address] [address] Jan, [place] [address] [address] Jan, [facility] [address] [address] Dec, Via [facility] [address] [place] [address] Dec, Peripheral vascular disease I73.9 ; 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 ; Other chronic pain G89.29 ; Anxiety F41.9 ; Reactive depression F32.9 ; Insomnia G47.00 and Type 2 diabetes mellitus without complication, without long-term current use of insulin E11.9 [facility] MOHINDER [id number] [place] [address] Nov, [facility] [address] [id number] [place] [id number] Nov, Anxiety F41.9 [facility] [address] [address] Nov, [place] [address] [id number] [place] [address] Nov, Anxiety F41.9 Via [facility] [address] [place] [address] Nov, Status post surgery Z98.890 ; Confused R 41.0 ; Anxiety F41.9 and Other chronic pain G89.29 [facility] [address] [id number] [place] [address] Nov, Other chronic pain G89.29 [facility] [address] [facility] [place] [address] Oct, [facility] [address] [id number] [place] [address] Oct, Other chronic pain G89.29 [facility] [address] [place] [id number] [place] [address] Oct, Anxiety F41.9 [facility] [address] [id number] [place] [address] Sep, Other chronic pain G89.29 [facility] [address] [id number] [place] [address] Sep, Via [facility] [address] [place] [id number] Aug, Dysuria R30.0 and Anxiety F41.9 [facility] [address] [facility] [place] [address] Aug, [facility] [address] [id number] [place] [id number] Aug, Other chronic pain G89.29 [facility] [address] [place] [id number] [place] [address] Jul, Other chronic pain G89.29 [facility] [address] [id number] [place] [address] Jun, [facility] [address] [id number] [place] [address] Jun, Other chronic pain G89.29 [facility] [address] [facility] [place] [address] Jun, [facility] [address] [address] May, Other chronic pain G89.29 [facility] [address] [address] Apr, Other chronic pain G89.29 [facility] [address] [place] [address] Apr, Reactive depression F32.9 and Pharyngeal dysphagia R13.13 [facility] [address] [address] Apr, Urinary tract infection without hematuri a, site unspecified N39.0 [facility] [address] [address] March, Other chronic pain G89.29 [facility] [address] [address] Feb, Other chronic pain G89.29 [facility] [address] [address] Feb, [facility] [address] [id number] [place] [address] Feb, [facility] [address] [place] [address] Feb, Dysuria R30.0 and Ventral hernia without obstruction or gangrene K43.9 [facility] [address] [address] Jan, Other chronic pain G89.29 [facility] [address] [id number] [place] [address] Dec, Other chronic pain G89.29 [facility] [address] [address] Nov, Other chronic pain G89.29 [facility] [address] [place] [address] Nov, Lymphadenitis I88.9 [facility] [address] [address] Nov, Other chronic pain G89.29 [facility] [address] [facility] [place] [address] Nov, [facility] [address] [id number] [place] [address] Nov, Other chronic pain G89.29 [facility] [address] [place] [address] Oct, Low back pain M54.5 ; Hypertension I10 a nd Type 2 diabetes mellitus without complication, without long-term current use of insulin E11.9 [facility] [address] [facility] [place] [address] Oct, [facility] [address] [id number] [place] [address] Oct, [facility] [address] [facility] [place] [address] Oct, [facility] [id number] [place] [address] Oct, [facility] [address] [facility] [place] [address] Sep, [facility] [address] [facility] [place] [address] Sep, [facility] [address] [facility] [place] [address] Aug, Other chronic pain G89.29 [facility] [address] [facility] [place] [address] Jul, [facility] [address] [facility] [place] [address] Jul, [facility] [id number] [place] [address] Jul, [facility] [id number] [place] [address] Jun, [facility] [id number] [place] [address] Jun, [facility] [address] [place] [address] Jun, Low back pain M54.5 ; Other chronic pain G89.29 and Coronary artery disease I25.10 [facility] [address] [address] Jun, [facility] [address] [address] May, [facility] [address] [address] May, [facility] [address] [address] May, Other chronic pain G89.29 [facility] [address] [address] May, [facility] [address] [address] Apr, [facility] [address] [address] Apr, Acute cystitis without hematuria N30.00 [facility] [address] [address] 16 Apr, 2016 Acute cystitis without hematuria N30.00 ; Coronary artery disease I25.10 ; Low back pain M54.5 and Other chronic pain G89.29 [facility] [address] [address] Apr, Other chronic pain G89.29 [facility] [address] [address] March, Other chronic pain G89.29 [facility] [address] [address] Feb, [facility] [address] [address] Feb, Arthritis M19.90 [facility] [address] [address] Feb, [facility] [address] [place] [address] Jan, [facility] [address] [address] Jan, [facility] [address] [place] [address] Jan, Other chronic pain G89.29 [facility] [address] [address] Jan, Hypertension I10 ; Coronary artery disea se I25.10 and Insomnia G47.00 [facility] [address] [address] Jan, [facility] [address] [address] Dec, Right hip pain M25.551 [facility] [address] [address] Dec, [facility] [address] [address] Dec, [facility] [address] [address] Dec, [facility] [address] [address] Dec, Other chronic pain G89.29 [facility] [address] [address] Dec, [facility] [address] [address] Nov, [facility] [address] [address] Nov, Other chronic pain G89.29 [facility] [address] [place] [address] Nov, Right hip pain M25.551 and Coronary karissa ry disease I25.10 [facility] [id number] [place] [address] Nov, Other chronic pain G89.29 [facility] [address] [place] [address] Oct, [facility] [address] [place] [address] Oct, [facility] [address] [place] [address] Sep, [facility] [address] [address] Sep, [facility] [address] [address] Aug, [facility] [address] [place] [address] Aug, Hypertension I10 ; Coronary artery disea se I25.10 and Arthritis M19.90 [facility] [address] [place] [address] Jun, [facility] [address] [place] [address] Jun, Essential hypertension, benign 401.1 ; O ther chronic pain 338.29 and Chronic airway obstruction, not elsewhere classified 496 [facility] [id number] [place] [address] Jun, [facility] [address] [place] [address] Jun, [facility] [address] [place] [address] Jun, [facility] [address] [place] [address] May, [facility] [address] [place] [address] May, [facility] [id number] [place] [address] Apr, [facility] [address] [facility] [place] [address] 16 Apr, 2015 [facility] [address] [facility] [place] [address] Apr, [facility] [place] [address] [facility] [place] [address] March, [facility] [address] [facility] [place] [address] March, [facility] [place] [facility] [address] [facility] [place] [address] March, [facility] [address] [facility] [place] [address] March, [facility] [address] [facility] [place] [address] March, Sialadenitis 527.2 [facility] [address] [facility] [place] [address] Feb, [facility] [place] [address] [facility] [place] [address] 29 Feb, 2015 [facility] [address] [facility] [place] [address] 29 Feb, 2015 [facility] [place] [facility] [address] [facility] [place] [address] 14 Feb, 2015 [facility] [place] [facility] [address] [facility] [place] [address] 13 Feb, 2015 [facility] [place] [address] [facility] [place] [address] 19 Jan, 2015 [facility] [place] [address] [facility] [place] [address] 19 Jan, 2015 [facility] [place] [facility] [address] [facility] [place] [address] 10 Jan, 2015 [facility] [place] [address] [facility] [place] [address] 10 Jan, 2015 [facility] [place] [address] [facility] [place] [address] Jan, [facility] [place] [address] [facility] [id number] [facility] [place] [address] Jan, [facility] [place] [address] [facility] [id number] [facility] [place] [address] Dec, [facility] [place] [facility] [address] [id number] [facility] [place] [address] Dec, [facility] [place] [facility] [address] [id number] [place] [address] Dec, [facility] [place] [facility] [address] [facility] [id number] [facility] [place] [address] Dec, [facility] [place] [facility] [address] [id number] [facility] [place] [address] Dec, [facility] [place] [facility] [address] [id number] [facility] [place] [address] Dec, [facility] [place] [facility] [address] [id number] [place] [address] Nov, [facility] [place] [facility] [address] [id number] [facility] [place] [address] Nov, [facility] [place] [facility] [address] [id number] [facility] [place] [address] Nov, [facility] [place] [facility] [address] [id number] [place] [address] Nov, [facility] [place] [facility] [address] [id number] [place] [address] Nov, [facility] [place] [facility] [address] [facility] [id number] [facility] [place] [address] Nov, [facility] [place] [facility] [address] [id number] [place] [address] Nov, [facility] [place] [facility] [address] [id number] [place] [address] Nov, [facility] [place] [facility] [address] [id number] [place] [address] Nov, [facility] [place] [facility] [address] [id number] [place] [address] 15 Nov, 2014 [facility] [place] [facility] [address] [id number] [place] [address] Nov, [facility] [place] [facility] [address] [facility] [id number] [place] [address] Nov, [facility] [address] [id number] [place] [address] Nov, [facility] [address] [id number] [place] [address] Nov, [facility] [address] [id number] [place] [address] Oct, [facility] [address] [id number] [place] [address] Oct, [facility] [address] [id number] [place] [address] Oct, [facility] [address] [id number] [place] [address] 18 Oct, 2014 [facility] [address] [id number] [place] [address] 18 Oct, 2014 [facility] [address] [id number] [place] [address] 17 Oct, 2014 [facility] [address] [id number] [place] [address] 17 Oct, 2014 [facility] [address] [id number] [place] [address] 10 Oct, 2014 [facility] [address] [id number] [place] [address] 10 Oct, 2014 [facility] [address] [id number] [place] [address] Sep, [facility] [address] [id number] [place] [address] Sep, [facility] [address] [id number] [place] [address] Sep, [facility] [address] [id number] [place] [address] Sep, [facility] [address] [id number] [place] [address] Sep, [facility] [address] [id number] [place] [address] Sep, [facility] [address] [id number] [place] [address] Sep, [facility] [address] [id number] [place] [address] Sep, [facility] [address] [id number] [place] [address] Sep, [facility] [address] [id number] [place] [address] Sep, [facility] [address] [id number] [place] [address] Sep, [facility] [address] [id number] [place] [address] Sep, [facility] [address] [id number] [place] [address] Aug, [facility] [address] [id number] [place] [address] Aug, [facility] [address] [id number] [place] [address] Aug, [facility] [address] [id number] [place] [address] Aug, [facility] [address] [id number] [place] [address] Aug, [facility] [address] [id number] [place] [address] Aug, [facility] [address] [id number] [place] [address] Aug, [facility] [address] [id number] [place] [address] 17 Aug, 2014 [facility] [address] [id number] [facility] [address] 30 Jul, 2013 [facility] [address] [facility] [id number] [place] [address] 30 Jul, 2013 [facility] [address] [id number] [place] [address] 30 Jul, 2013 [facility] [address] [facility] [id number] [place] [address] 30 Jul, 2013 [facility] [address] [facility] [id number] [facility] [place] [address] Jul, [facility] [address] [id number] [place] [address] Jul, 2013 [facility] [address] [id number] [place] [address] 15 Jul, 2014 [facility] [address] [id number] [place] [address] 15 Jul, 2013 [facility] [address] [facility] [id number] [facility] [place] [address] Jul, [facility] [address] [id number] [place] [address] Jul, [facility] [address] [id number] [place] [address] Jun, [facility] [address] [id number] [facility] [place] [address] Jun, [facility] [address] [facility] [id number] [place] [address] Jun, [facility] [address] [id number] [place] [address] Jun, [facility] [address] [id number] [place] [address] Jun, [facility] [address] [id number] [place] [address] Jun, [facility] [address] [id number] [facility] [place] [address] Jun, [facility] [address] [facility] [id number] [facility] [place] [address] Jun, [facility] [address] [facility] [id number] [facility] [address] Jun, [facility] [address] [facility] [id number] [place] [address] Jun, [facility] [address] [facility] [id number] [place] [address] Jun, [facility] [address] [facility] [id number] [place] [address] Jun, [facility] [address] [id number] [place] [address] Jun, [facility] [address] [id number] [place] [address] Jun, [facility] [address] [id number] [place] [address] Jun, [facility] [address] [facility] [id number] [place] [address] Jun, [facility] [address] [id number] [place] [address] Jun, [facility] [address] [id number] [place] [address] Jun, [facility] [address] [facility] [id number] [place] [address] Jun, [facility] [address] [id number] [place] [address] Jun, [facility] [address] [id number] [place] [address] Jun, [facility] [address] [facility] [id number] [place] [address] Jun, [facility] [address] [id number] [place] [address] May, [facility] [address] [id number] [place] [address] May, 2013 [facility] [address] [id number] [facility] [address] May, 2013 [facility] [address] [facility] [id number] [place] [address] May, 2013 [facility] [address] [id number] [facility] [address] May, 2013 [facility] [address] [facility] [id number] [place] [address] May, 2013 [facility] [address] [facility] [id number] [place] [address] May, 2013 [facility] [address] [facility] [id number] [place] [address] May, 2013 [facility] [address] [id number] [place] [address] May, 2013 [facility] [address] [facility] [id number] [place] [address] May, [facility] [address] [id number] [place] [address] May, [facility] [address] [id number] [place] [address] May, [facility] [address] [id number] [place] [address] May, [facility] [address] [facility] [id number] [place] [address] Apr, [facility] [address] [id number] [place] [address] Apr, [facility] [address] [facility] [id number] [place] [address] Apr, [facility] [address] [id number] [place] [address] Apr, [facility] [address] [facility] [id number] [facility] [place] [address] Apr, [facility] [address] [facility] [id number] [facility] [address] Apr, [facility] [address] [facility] [id number] [place] [address] Apr, [facility] [address] [id number] [place] [address] Apr, [facility] [address] [id number] [facility] [place] [address] Apr, [facility] [address] [facility] [id number] [facility] [address] March, [facility] [address] [id number] [place] [address] March, [facility] [address] [id number] [place] [address] March, [facility] [address] [id number] [place] [address] March, [facility] [address] [facility] [id number] [facility] [address] March, [facility] [address] [id number] [place] [address] March, [facility] [address] [id number] [place] [address] March, [facility] [address] [id number] [facility] [place] [address] March, [facility] [address] [facility] [id number] [facility] [address] March, [facility] [address] [id number] [place] [address] March, [facility] [address] [id number] [facility] [address] March, [facility] [address] [id number] [place] [address] March, [facility] [address] [id number] [place] [address] March, [facility] [address] [id number] [place] [address] March, [facility] [address] [id number] [place] [address] March, [facility] [address] [id number] [place] [address] March, [facility] [address] [id number] [place] [address] March, [facility] [address] [id number] [place] [address] March, [facility] [address] [id number] [place] [address] March, [facility] [address] [id number] [place] [address] March, [facility] [address] [id number] [place] [address] Feb, [facility] [address] [id number] [place] [address] Feb, [facility] [address] [id number] [place] [address] Feb, [facility] [address] [id number] [place] [address] Feb, [facility] [address] [id number] [place] [address] Feb, [facility] [address] [id number] [place] [address] Feb, [facility] [address] [id number] [place] [address] Feb, [facility] [address] [id number] [place] [address] Feb, [facility] [address] [id number] [place] [address] Jan, [facility] [address] [facility] [id number] [place] [address] Jan, [facility] [address] [facility] [id number] [facility] [address] Jan, [facility] [address] [facility] [id number] [place] [address] Jan, [facility] [address] [id number] [place] [address] Jan, [facility] [address] [facility] [id number] [facility] [address] Jan, [facility] [address] [id number] [place] [address] Jan, [facility] [address] [id number] [place] [address] Jan, [facility] [address] [id number] [place] [address] Jan, [facility] [address] [id number] [place] [address] Jan, [facility] [address] [id number] [place] [address] Dec, [facility] [address] [id number] [place] [address] Dec, [facility] [address] [id number] [place] [address] Dec, [facility] [address] [id number] [place] [address] 2013 [facility] [address] [facility] [id number] [place] [address] 2013 [facility] [address] [id number] [place] [address] 13 Dec, 2013 [facility] [address] [id number] [place] [address] 12 Dec, 2013 [facility] [address] [id number] [place] [address] Dec, [facility] [address] [id number] [place] [address] Nov, [facility] [address] [id number] [place] [address] Nov, [facility] [address] [id number] [place] [address] Nov, [facility] [address] [id number] [place] [address] Nov, [facility] [address] [id number] [place] [address] Nov, [facility] [address] [id number] [place] [address] Nov, [facility] [address] [id number] [place] [address] Nov, [facility] [address] [id number] [place] [address] Nov, [facility] [address] [id number] [place] [address] Nov, [facility] [address] [id number] [place] [address] Nov, [facility] [address] [id number] [place] [address] Nov, [facility] [address] [id number] [place] [address] Nov, [facility] [address] [id number] [place] [address] Nov, [facility] [address] [id number] [place] [address] Oct, [facility] [address] [id number] [place] [address] Oct, [facility] [address] [id number] [place] [address] Oct, [facility] [address] [id number] [place] [address] Oct, 2012 [facility] [address] [id number] [place] [address] Oct, [facility] [address] [id number] [place] [address] Oct, [facility] [address] [id number] [place] [address] Oct, [facility] [address] [id number] [place] [address] Oct, [facility] [address] [id number] [place] [address] Oct, [facility] [address] [id number] [place] [address] Oct, [facility] [id number] [place] [address] Oct, [facility] [address] [id number] [place] [address] Oct, [facility] [address] [id number] [place] [address] Oct, [facility] [address] [id number] [place] [address] Oct, [facility] [address] [id number] [place] [address] 14 Sep, 2013 [facility] [address] [id number] [place] [address] 14 Sep, 2013 [facility] [address] [id number] [place] [address] 05 Sep, 2013 [facility] [address] [id number] [place] [address] 05 Sep, 2013 [facility] [address] [id number] [place] [address] 04 Sep, 2013 [facility] [address] [id number] [place] [address] Sep, [facility] [address] [id number] [place] [address] Sep, [facility] [address] [id number] [place] [address] Sep, [facility] [address] [id number] [place] [address] Sep, [facility] [address] [id number] [place] [address] Sep, [facility] [address] [id number] [place] [address] Aug, [facility] [address] [id number] [place] [address] Aug, [facility] [address] [id number] [place] [address] Aug, [facility] [address] [id number] [place] [address] Aug, [facility] [address] [id number] [place] [address] Aug, [facility] [address] [id number] [place] [address] Aug, [facility] [address] [id number] [place] [address] Aug, [facility] [address] [id number] [place] [address] Aug, [facility] [address] [id number] [place] [address] Aug, [facility] [address] [id number] [place] [address] Aug, [facility] [address] [id number] [place] [address] Aug, [facility] [address] [id number] [place] [address] Aug, [facility] [address] [id number] [facility] [address] 18 Aug, 2012 [facility] [address] [id number] [place] [address] 18 Aug, 2013 [facility] [address] [facility] [id number] [place] [address] 17 Aug, 2013 [facility] [address] [facility] [id number] [place] [address] 14 Aug, 2013 [facility] [address] [facility] [id number] [place] [address] 14 Aug, 2013 [facility] [address] [facility] [id number] [place] [address] 01 Aug, 2013 [facility] [address] [id number] [place] [address] 20 Jul, 2013 [facility] [address] [id number] [place] [address] 19 Jul, 2013 [facility] [address] [id number] [place] [address] 18 Jul, 2013 [facility] [address] [facility] [id number] [place] [address] 11 Jul, 2013 [facility] [address] [id number] [place] [address] Jul, [facility] [address] [id number] [place] [address] 28 Jun, 2013 [facility] [address] [facility] [id number] [place] [address] Jun, [facility] [address] [facility] [id number] [place] [address] Jun, [facility] [address] [id number] [place] [address] 15 Jun, 2013 [facility] [address] [facility] [id number] [place] [address] 14 Jun, 2013 [facility] [address] [id number] [place] [address] Jun, [facility] [address] [id number] [place] [address] Jun, [facility] [address] [facility] [id number] [place] [address] Jun, [facility] [address] [facility] [id number] [place] [address] Jun, [facility] [address] [id number] [facility] [place] [address] Jun, [facility] [address] [facility] [id number] [facility] [place] [address] May, [facility] [address] [id number] [place] [address] May, [facility] [address] [id number] [place] [address] May, [facility] [address] [id number] [place] [address] May, [facility] [address] [id number] [place] [address] May, [facility] [address] [id number] [place] [address] May, [facility] [address] [id number] [place] [address] May, [facility] [address] [id number] [place] [address] May, [facility] [address] [id number] [place] [address] May, [facility] [address] [facility] [id number] [place] [address] Apr, [facility] [address] [id number] [place] [address] Apr, [facility] [address] [id number] [place] [address] Apr, [facility] [address] [id number] [place] [address] Apr, [facility] [address] [id number] [place] [address] Apr, [facility] [address] [id number] [place] [address] Apr, [facility] [address] [id number] [place] [address] Apr, [facility] [address] [id number] [place] [address] March, [facility] [address] [id number] [facility] [place] [address] Feb, [facility] [address] [id number] [place] [address] Feb, [facility] [address] [id number] [place] [address] Feb, [facility] [address] [id number] [place] [address] Jan, [facility] [address] [id number] [place] [address] Jan, [facility] [address] [id number] [place] [address] Jan, [facility] [address] [id number] [place] [address] Jan, [facility] [address] [id number] [place] [address] Jan, [facility] [address] [id number] [place] [address] 08 Jan, 2013 [facility] [address] [id number] [place] [address] 07 Jan, 2013 [facility] [address] [id number] [place] [address] Jan, [facility] [address] [id number] [place] [address] Dec, [facility] [address] [id number] [place] [address] 25 Dec, 2012 [facility] [address] [id number] [place] [address] Dec, [facility] [address] [id number] [place] [address] Dec, [facility] [address] [id number] [place] [address] 07 Dec, 2012 [facility] [address] [id number] [place] [address] 06 Dec, 2012 [facility] [address] [id number] [place] [address] 05 Dec, 2012 [facility] [address] [id number] [place] [address] Nov, [facility] [address] [id number] [place] [address] Nov, [facility] [address] [id number] [place] [address] Nov, [facility] [address] [id number] [place] [address] Nov, [facility] [address] [id number] [place] [address] Nov, [facility] [address] [id number] [place] [address] Nov, [facility] [address] [id number] [place] [address] Nov, [facility] [address] [id number] [place] [address] Oct, [facility] [address] [id number] [place] [address] Oct, [facility] [address] [id number] [place] [address] Oct, [facility] [address] [id number] [place] [address] Oct, [facility] [address] [id number] [place] [address] Oct, [facility] [address] [id number] [place] [address] Oct, [facility] [facility] [address] [id number] [place] [address] Oct, [facility] [address] [id number] [place] [address] Oct, [facility] [address] [id number] [place] [address] Oct, [facility] [address] [id number] [place] [address] Oct, [facility] [address] [id number] [place] [address] Oct, [facility] [address] [id number] [place] [address] Oct, [facility] [address] [id number] [place] [address] Sep, [facility] [address] [id number] [place] [address] Sep, [facility] [address] [id number] [place] [address] Sep, [facility] [address] [id number] [place] [address] Sep, [facility] [address] [id number] [place] [address] Sep, [facility] [address] [id number] [place] [address] Sep, [facility] [address] [id number] [place] [address] Sep, [facility] [address] [id number] [place] [address] Sep, [facility] [address] [id number] [place] [address] Sep, [facility] [address] [id number] [place] [address] Sep, [facility] [address] [id number] [place] [address] Sep, [facility] [address] [id number] [place] [address] Aug, [facility] [address] [id number] [place] [address] Aug, [facility] [address] [id number] [place] [address] Aug, [facility] [address] [id number] [place] [address] Aug, [facility] [address] [id number] [place] [address] Aug, [facility] [address] [id number] [place] [address] Aug, [facility] [address] [id number] [place] [address] Aug, [facility] [address] [id number] [place] [address] Aug, [facility] [address] [id number] [place] [address] Aug, [facility] [address] [id number] [place] [address] Aug, [facility] [address] [id number] [place] [address] 22 Jul, 2012 [facility] [address] [id number] [place] [address] 20 Jul, 2012 [facility] [address] [id number] [place] [address] 10 Jul, 2011 [facility] [address] [id number] [place] [address] Jul, [facility] [address] [id number] [place] [address] Jun, [facility] [address] [id number] [place] [address] Jun, [facility] [address] [id number] [place] [address] Jun, [facility] [address] [id number] [place] [address] Jun, [facility] [address] [id number] [place] [address] Jun, [facility] [address] [id number] [place] [address] Jun, [facility] [address] [id number] [place] [address] Jun, [facility] [address] [id number] [place] [address] May, [facility] [address] [id number] [place] [address] May, [facility] [address] [id number] [place] [address] May, [facility] [address] [id number] [place] [address] May, [facility] [address] [id number] [place] [address] May, [facility] [address] [id number] [place] [address] Apr, [facility] [address] [id number] [place] [address] Apr, [facility] [address] [id number] [place] [address] Apr, [facility] [address] [id number] [place] [address] Apr, [facility] [address] [id number] [place] [address] Apr, [facility] [address] [id number] [place] [address] March, [facility] [address] [id number] [place] [address] March, [facility] [address] [id number] [place] [address] March, [facility] [address] [id number] [place] [address] March, [facility] [address] [facility] [id number] [place] [address] March, [facility] [address] [id number] [place] [address] March, [facility] [address] [id number] [place] [address] March, [facility] [address] [id number] [place] [address] March, [facility] [address] [id number] [place] [address] March, [facility] [address] [id number] [place] [address] March, [facility] [address] [id number] [place] [address] Feb, [facility] [address] [id number] [place] [address] Feb, [facility] [address] [id number] [place] [address] Feb, [facility] [address] [id number] [place] [address] Feb, [facility] [address] [id number] [place] [address] Feb, [facility] [address] [id number] [place] [address] Feb, [facility] [address] [id number] [place] [address] Feb, [facility] [address] [id number] [place] [address] Feb, [facility] [address] [id number] [place] [address] Feb, [facility] [address] [id number] [place] [address] Jan, [facility] [address] [id number] [place] [address] Jan, [facility] [address] [id number] [place] [address] Jan, [facility] [address] [id number] [place] [address] Jan, [facility] [address] [id number] [place] [address] Dec, [facility] [address] [id number] [place] [address] Dec, [facility] [address] [id number] [place] [address] Nov, [facility] [address] [id number] [place] [address] Nov, [facility] [address] [id number] [place] [address] Nov, [facility] [address] [id number] [place] [address] Nov, [facility] [address] [id number] [place] [address] Nov, [facility] [id number] [place] [address] Oct, [facility] [address] [id number] [place] [address] Oct, [facility] [id number] [place] [address] Oct, [facility] [address] [id number] [place] [address] Oct, [facility] [address] [id number] [place] [address] Oct, [facility] [address] [id number] [place] [address] Oct, [facility] [address] [id number] [place] [address] Oct, [facility] [address] [id number] [place] [address] Oct, [facility] [id number] [place] [address] Sep, IMMUNIZATIONS No Known Immunizations SOCIAL HISTORY [...] History No Surgical history information Hospitalization History [facility]- Urosepsis, ab d pain and fever, discharged 11/27/2017 11/26/2017 Hospitalization History [facility]- Went Unrepsonsive, Hit head 2017 Hospitalization History [facility]- Back Pain 05/05/ 8
--- OUTSIDE RECORDS SUMMARY | 2020-06-18 15:05 | XMS REPORT ---
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 Name Role Phone ELIZABETH SHARIF Unavailable PROBLEMS Type Condition ICD9-CM Code MEB10-KF Code Onset Dates Condition S tatus SNOMED Code Problem Coronary artery disease I25.10 Active 29693070 Problem Hypertension I10 Active 9792854 3 Problem Other chronic pain G89.29 Active 8 6756998 Problem Hyperlipidemia E78.5 Active 60529 004 Problem Type 2 diabetes mellitus wit hout complication, without long-term current use of insulin E11.9 Active 030943955 Problem Low back pain M54.5 Active 136027 009 Problem Pharyngeal dysphagia R13.13 Active 40361408216028 Problem Anxiety F41.9 Active 21540764 Problem Peripheral vascular disease I73.9 Ac tive 208737183 Problem Suprapubic catheter Z93.59 Active 015985651 Problem Reactive depression F32.9 Active 79202484 Problem Neurogenic bladder N31.9 Active 3 10806050 Problem Ventral hernia without obstruction or gangrene K43 .9 Active 649890336 Problem Insomnia G47.00 Active 533478664 Problem Paroxysmal atrial fibrillation I48.0 Active 045178169 Problem 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 [id number] [place] [address] Nov, Hypertension I10 Via [facility] [address] [place] [address] Nov, Pneumonia of both lungs due to infectiou s organism, unspecified part of lung J18.9 and Suprapubic catheter Z93.59 [facility] [address] [place] [address] Nov, Hypertension I10 and Reactive depression F32.9 [facility] [address] [address] Oct, Strain of right shoulder, subsequent enc ounter S46.911D and Anxiety F41.9 [facility] [address] [address] Oct, Via [facility] [address] [place] [address] Oct, Suprapubic catheter Z93.59 and Candidias is, intertriginous B37.2 [place] [address] [address] Oct, Suprapubic catheter Z93.59 [place] [address] [address] Oct, Anxiety F41.9 and Strain of right should er, subsequent encounter S46.911D [place] [address] [address] Sep, [facility] [address] [address] Sep, [place] [address] [address] Sep, Via [facility] [address] [place] [id number] Sep, Suprapubic catheter Z93.59 [place] [address] [address] Sep, Anxiety F41.9 and Strain of right should er, subsequent encounter S46.911D [facility] [address] [address] Aug, [facility] [address] [address] Aug, [facility] [address] [address] Aug, Anxiety F41.9 and Strain of right should er, subsequent encounter S46.911D Via [facility] [address] [place] [address] Aug, Suprapubic catheter Z93.59 [place] [address] [address] Jul, Strain of right shoulder, subsequent enc ounter S46.911D and Anxiety F41.9 [place] [address] [address] Jul, Anxiety F41.9 [place] [address] [address] Jun, [place] [address] [address] Jun, [place] [address] [address] Jun, [place] [address] [address] Jun, Strain of right shoulder, subsequent enc ounter S46.911D [place] [address] [address] Jun, Strain of right shoulder, subsequent enc ounter S46.911D [place] [address] [address] Jun, Anxiety F41.9 Via [facility] [employer] [address] [place] [id number] Jun, Neurogenic bladder N31.9 and Anxiety F41 .9 [facility] [address] [place] [address] May, Anxiety F41.9 [place] [address] [address] May, Dysuria R30.0 [place] [address] [address] May, Strain of right shoulder, subsequent enc ounter S46.911D and Anxiety F41.9 [place] [address] [address] 27 Apr, 2019 [facility] [address] [place] [id number] Apr, Strain of right shoulder, subsequent enc ounter S46.911D [place] [address] [address] 14 Apr, 2019 Strain of right shoulder, subsequent enc ounter S46.911D and Anxiety F41.9 [facility] [address] [place] [id number] 13 Apr, 2019 Type 2 diabetes mellitus without complic ation, without long-term current use of insulin E11.9 and Neurogenic bladder N31.9 [facility] [employer] [address] [place] [id number] 11 Apr, 2019 Strain of right shoulder, subsequent enc ounter S46.911D ; History of GI bleed Z87.19 ; Neurogenic bladder N31.9 and Reactive depression F32.9 [place] [address] [address] 10 Apr, 2019 Acute pain of left shoulder M25.512 [place] [address] [address] 07 Apr, 2019 [place] [address] [address] Apr, Anxiety F41.9 and Other chronic pain G89 .29 [facility] [address] [place] [id number] March, Gastrointestinal hemorrhage associated w ith acute gastritis K29.01 [place] [address] [address] March, [facility] [address] [place] [address] March, Bronchitis J40 [place] [address] [address] March, Cough R05 [facility] [address] [address] March, Other chronic pain G89.29 [facility] [address] [address] March, Anxiety F41.9 [facility] [address] [address] March, [facility] [address] [address] Feb, Other chronic pain G89.29 [facility] [address] [address] Feb, Anxiety F41.9 [facility] [address] [address] Feb, Other chronic pain G89.29 Via [facility] [address] [place] [address] Feb, Neurogenic bladder N31.9 and Suprapubic catheter Z93.59 [facility] [address] [address] Jan, Anxiety F41.9 [facility] [address] [address] Dec, Anxiety F41.9 [facility] [address] [address] Dec, Other chronic pain G89.29 and Anxiety F4 1.9 [facility] [address] [address] Dec, Via [facility] [address] [place] [id number] Dec, Neurogenic bladder N31.9 and Suprapubic catheter Z93.59 [facility] [address] [address] Nov, Other chronic pain G89.29 [address] Anxiety F4 1.9 [facility] [address] [address] Nov, Via [employer] [address] [place] [address] Nov, Suprapubic catheter Z93.59 [facility] [address] [address] Oct, Other chronic pain G89.29 and Anxiety F4 1.9 [facility] [address] [address] Oct, [facility] [address] [address] Oct, Suprapubic catheter Z93.59 [place] [address] [address] Oct, Via [employer] [facility] [address] [place] [id number] Oct, [facility] [address] [address] Oct, Anxiety F41.9 [place] [address] [address] Oct, Anxiety F41.9 Via [employer] [facility] [address] [place] [id number] Oct, Other chronic pain G89.29 [facility] [address] [address] Sep, Other chronic pain G89.29 Via [employer] [facility] [address] [place] [address] Sep, Suprapubic catheter Z93.59 and Cervicalg ia M54.2 [facility] [address] [address] Sep, [facility] [address] [address] Sep, [facility] [address] [address] Sep, Via [employer] [address] [place] [id number] Aug, Cystitis N30.90 [place] [address] [address] Aug, [place] [address] [address] Aug, Other chronic pain G89.29 [place] [address] [address] Aug, Via [employer] [address] [place] [address] Aug, Encounter for suprapubic catheter care Z 43.5 [place] [address] [address] Jul, Via [employer] [address] [place] [id number] Jul, [place] [address] [address] Jul, Other chronic pain G89.29 [place] [address] [address] Jul, [place] [address] [address] Jul, Via [employer] [address] [place] [address] Jun, Postmenopausal atrophic vaginitis N95.2 [place] [address] [address] Jun, Other chronic pain G89.29 [place] [address] [address] Jun, Via [employer] [address] [place] [address] May, Anxiety F41.9 ; Type 2 diabetes mellitus without complication, without long-term current use of insulin E11.9 ; Hypertension I10 ; Low back pain M54.5 ; Paroxysmal atrial fibrillation I48.0 and 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 [facility] [address] [place] [address] [place] [address] May, Other chronic pain G89.29 Via [employer] [address] [place] [address] May, Low back pain M54.5 [facility] [address] [address] May, [facility] [address] [address] Apr, Other chronic pain G89.29 [facility] [address] [address] Apr, [facility] [address] [address] Apr, Via [employer] [address] [place] [id number] Apr, Closed compression fracture of L3 lumbar vertebra with routine healing, subsequent encounter S32.030D Via [employer] [address] [place] [id number] Apr, Low back pain M54.5 Via [employer] [address] [place] [id number] Apr, Coccydynia M53.3 [facility] [address] [address] March, [facility] [address] [address] March, Other chronic pain G89.29 [facility] [id number] [place] [address] March, [facility] [address] [address] March, [facility] [address] [address] Feb, [facility] [address] [address] Feb, Other chronic pain G89.29 Via [facility] [address] [place] [id number] Feb, Other chronic pain G89.29 [address] Anxiety F4 1.9 [facility] [address] [address] Feb, [facility] [address] [address] Jan, [facility] [address] [address] Jan, [facility] [address] [address] Jan, [place] [address] [address] Jan, 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 [address] [address] Nov, [place] [address] [id number] [place] [id number] Nov, Anxiety F41.9 [facility] [address] [place] [address] Nov, Status post surgery Z98.890 ; Confused R 41.0 ; Anxiety F41.9 and Other chronic pain G89.29 [facility] [address] [id number] [place] [address] Nov, Other chronic pain G89.29 [facility] [address] [facility] [address] [place] [address] Oct, [facility] [address] [id number] [place] [address] Oct, Other chronic pain G89.29 [facility] [id number] [place] [address] Oct, Anxiety F41.9 [facility] [address] [id number] [place] [address] Sep, Other chronic pain G89.29 [facility] [address] [id number] [place] [id number] Sep, Via [facility] [address] [place] [id number] Aug, Dysuria R30.[address] [facility] [address] [facility] [address] [place] [address] Aug, [facility] [address] [id number] [place] [id number] Aug, Other chronic pain G89.29 [facility] [id number] [place] [address] Jul, Other chronic pain G89.29 [facility] [address] [id number] [place] [id number] Jun, [facility] [address] [id number] [place] [id number] Jun, Other chronic pain G89.29 [facility] [address] [facility] [address] [place] [address] Jun, [facility] [address] [address] May, Other chronic pain G89.29 [facility] [address] [address] Apr, Other chronic pain G89.29 Via [facility] [employer] [place] [address] [place] [address] Apr, Reactive depression F32.9 and Pharyngeal dysphagia R13.13 [facility] [address] [address] Apr, Urinary tract infection without hematuri a, site unspecified N39.0 [facility] [address] [address] March, Other chronic pain G89.29 [facility] [address] [address] Feb, Other chronic pain G89.29 [facility] [address] [address] Feb, [facility] [address] [id number] [place] [id number] Feb, Via [employer] [address] [place] [address] Feb, Dysuria R30.0 and Ventral hernia without obstruction or gangrene K43.9 [facility] [address] [address] Jan, Other chronic pain G89.29 [facility] [address] [id number] [place] [address] Dec, Other chronic pain G89.29 [facility] [address] [address] Nov, Other chronic pain G89.29 [facility] [employer] [employer] [address] [place] [address] Nov, Lymphadenitis I88.9 [facility] [address] [address] Nov, Other chronic pain G89.29 [facility] [address] [facility] [address] [place] [address] Nov, [facility] [address] [id number] [place] [id number] Nov, Other chronic pain G89.29 Via [facility] [place] [employer] [address] [place] [id number] Oct, Low back pain M54.5 ; Hypertension I10 a nd Type 2 diabetes mellitus without complication, without long-term current use of insulin E11.9 [facility] [address] [facility] [address] [place] [address] Oct, [facility] [id number] [place] [address] Oct, [facility] [address] [facility] [address] [place] [address] Oct, [facility] [id number] [place] [address] Oct, [facility] [address] [facility] [address] [place] [address] Sep, [facility] [address] [facility] [address] [place] [address] Sep, [facility] [address] [facility] [address] [place] [address] Aug, Other chronic pain G89.29 [facility] [address] [facility] [address] [place] [address] Jul, [facility] [address] [facility] [address] [place] [address] Jul, [facility] [id number] [place] [address] Jul, [facility] [id number] [place] [address] Jun, [facility] [id number] [place] [address] Jun, [facility] [address] [place] [address] Jun, Low back pain M54.5 ; Other chronic pain G89.29 and Coronary artery disease I25.10 [facility] [address] [address] Jun, [facility] [address] [address] May, [facility] [address] [address] May, [facility] [address] [address] May, Other chronic pain G89.29 [facility] [address] [address] May, [facility] [address] [address] Apr, [facility] [address] [address] Apr, Acute cystitis without hematuria N30.00 [facility] [address] [address] 16 Apr, 2016 Acute cystitis without hematuria N30.00 ; Coronary artery disease I25.10 ; Low back pain M54.5 and Other chronic pain G89.29 [facility] [address] [address] Apr, Other chronic pain G89.29 [facility] [address] [address] March, Other chronic pain G89.29 [facility] [address] [address] Feb, [facility] [address] [address] Feb, Arthritis M19.90 [facility] [address] [address] Feb, [facility] [id number] [place] [address] Jan, [facility] [address] [address] Jan, [facility] [id number] [place] [address] Jan, Other chronic pain G89.29 [facility] [address] [address] Jan, Hypertension I10 ; Coronary artery disea se I25.[address] [facility] [address] [address] Jan, [facility] [address] [address] Dec, Right hip pain M25.551 [facility] [address] [address] Dec, [facility] [address] [address] Dec, [facility] [address] [address] Dec, [facility] [address] [address] Dec, Other chronic pain G89.29 [facility] [address] [address] Dec, [facility] [address] [address] Nov, [facility] [address] [address] Nov, Other chronic pain G89.29 [facility] [id number] [place] [address] Nov, Right hip pain M25.551 and Coronary karissa ry disease I25.10 [facility] [id number] [place] [address] Nov, Other chronic pain G89.29 [facility] [id number] [place] [address] Oct, [facility] [id number] [place] [address] Oct, [facility] [id number] [place] [address] Sep, [facility] [address] [address] Sep, [facility] [address] [address] Aug, [facility] [id number] [place] [address] Aug, Hypertension I10 ; Coronary artery disea se I25.[address] [facility] [id number] [place] [address] Jun, [facility] [id number] [place] [address] Jun, Essential hypertension, benign 401.1 ; O ther chronic pain 338.29 and Chronic airway obstruction, not elsewhere classified [address] [facility] [address] [id number] [place] [address] Jun, [facility] [id number] [place] [address] Jun, [facility] [id number] [place] [address] Jun, [facility] [id number] [place] [address] May, [facility] [id number] [place] [address] May, [facility] [address] [id number] [place] [address] Apr, [facility] [address] [id number] [place] [address] 16 Apr, 2015 [facility] [address] [id number] [place] [address] Apr, [facility] [address] [id number] [place] [address] March, [facility] [address] [id number] [place] [address] March, [facility] [address] [id number] [place] [address] March, [facility] [address] [id number] [place] [address] March, [facility] [address] [id number] [place] [address] March, Sialadenitis 527.2 [facility] [address] [id number] [place] [address] Feb, [facility] [address] [id number] [place] [address] 29 Feb, 2015 [facility] [address] [id number] [place] [address] 29 Feb, 2015 [facility] [address] [id number] [place] [address] 14 Feb, 2015 [facility] [address] [id number] [place] [address] 13 Feb, 2015 [facility] [address] [id number] [place] [address] 19 Jan, 2015 [facility] [address] [id number] [place] [address] 19 Jan, 2015 [facility] [address] [id number] [place] [address] 10 Jan, 2015 [facility] [address] [id number] [place] [address] 10 Jan, 2015 [facility] [address] [id number] [place] [address] Jan, [facility] [address] [facility] [id number] [facility] [place] [address] Jan, [facility] [place] [facility] [address] [facility] [id number] [facility] [place] [address] Dec, [facility] [place] [facility] [address] [id number] [facility] [place] [address] Dec, [facility] [place] [facility] [address] [id number] [place] [address] Dec, [facility] [place] [facility] [address] [facility] [id number] [facility] [place] [address] Dec, [facility] [place] [facility] [address] [id number] [facility] [place] [address] Dec, [facility] [place] [facility] [address] [id number] [facility] [place] [address] Dec, [facility] [place] [facility] [address] [id number] [place] [address] Nov, [facility] [place] [facility] [address] [id number] [facility] [place] [address] Nov, [facility] [place] [facility] [address] [id number] [facility] [place] [address] Nov, [facility] [place] [facility] [address] [id number] [place] [address] Nov, [facility] [place] [facility] [address] [id number] [place] [address] Nov, [facility] [place] [facility] [address] [facility] [id number] [facility] [place] [address] Nov, [facility] [place] [facility] [address] [id number] [place] [address] Nov, [facility] [place] [facility] [address] [id number] [place] [address] Nov, [facility] [place] [facility] [address] [id number] [place] [address] Nov, [facility] [place] [facility] [address] [id number] [place] [address] 15 Nov, 2014 [facility] [place] [facility] [address] [id number] [place] [address] Nov, [facility] [place] [facility] [address] [id number] [place] [address] Nov, [facility] [place] [facility] [address] [id number] [place] [address] Nov, [facility] [place] [facility] [address] [id number] [place] [address] Nov, [facility] [place] [facility] [address] [id number] [place] [address] Oct, [facility] [place] [facility] [address] [id number] [place] [address] Oct, [facility] [place] [facility] [address] [id number] [place] [address] Oct, [facility] [place] [facility] [address] [id number] [place] [address] 18 Oct, 2014 [facility] [place] [facility] [address] [id number] [place] [address] 18 Oct, 2014 [facility] [place] [facility] [address] [id number] [place] [address] 17 Oct, 2014 [facility] [place] [facility] [address] [id number] [place] [address] 17 Oct, 2014 [facility] [place] [facility] [address] [id number] [place] [address] 10 Oct, 2014 [facility] [place] [facility] [address] [id number] [place] [address] 10 Oct, 2014 [facility] [place] [facility] [address] [id number] [place] [address] Sep, [facility] [place] [facility] [address] [id number] [place] [address] Sep, [facility] [place] [facility] [address] [id number] [place] [address] Sep, [facility] [place] [facility] [address] [id number] [place] [address] Sep, [facility] [place] [facility] [address] [id number] [place] [address] Sep, [facility] [place] [facility] [address] [id number] [place] [address] Sep, [facility] [place] [facility] [address] [id number] [place] [address] Sep, [facility] [place] [facility] [address] [id number] [place] [address] Sep, [facility] [place] [facility] [address] [id number] [place] [address] Sep, [facility] [place] [facility] [address] [id number] [place] [address] Sep, [facility] [place] [facility] [address] [id number] [place] [address] Sep, [facility] [place] [facility] [address] [id number] [place] [address] Sep, [facility] [place] [facility] [address] [id number] [place] [address] Aug, [facility] [place] [facility] [address] [id number] [place] [address] Aug, [facility] [place] [facility] [address] [id number] [place] [address] Aug, [facility] [place] [facility] [address] [id number] [place] [address] Aug, [facility] [place] [facility] [address] [id number] [place] [address] Aug, [facility] [place] [facility] [address] [id number] [place] [address] Aug, [facility] [place] [facility] [address] [id number] [place] [address] Aug, [facility] [place] [facility] [address] [id number] [place] [address] 17 Aug, 2014 [facility] [place] [facility] [address] [id number] [facility] [place] [address] 30 Jul, 2013 [facility] [place] [facility] [address] [facility] [id number] [place] [address] 30 Jul, 2013 [facility] [place] [facility] [address] [id number] [place] [address] 30 Jul, 2013 [facility] [place] [facility] [address] [facility] [id number] [place] [address] 30 Jul, 2013 [facility] [place] [facility] [address] [facility] [id number] [facility] [place] [address] Jul, [facility] [place] [facility] [address] [id number] [place] [address] Jul, 2013 [facility] [place] [facility] [address] [id number] [place] [address] 15 Jul, 2014 [facility] [place] [facility] [address] [id number] [place] [address] 15 Jul, 2013 [facility] [place] [facility] [address] [facility] [id number] [facility] [place] [address] Jul, [facility] [place] [facility] [address] [id number] [place] [address] Jul, [facility] [place] [facility] [address] [id number] [place] [address] Jun, [facility] [place] [facility] [address] [id number] [facility] [place] [address] Jun, [facility] [place] [facility] [address] [facility] [id number] [place] [address] Jun, [facility] [place] [facility] [address] [id number] [place] [address] Jun, [facility] [place] [facility] [address] [id number] [place] [address] Jun, [facility] [place] [facility] [address] [id number] [place] [address] Jun, [facility] [place] [facility] [address] [id number] [facility] [place] [address] Jun, [facility] [place] [facility] [address] [facility] [id number] [facility] [place] [address] Jun, [facility] [place] [facility] [address] [facility] [id number] [facility] [place] [address] Jun, [facility] [place] [facility] [address] [facility] [id number] [place] [address] Jun, [facility] [place] [facility] [address] [facility] [id number] [place] [address] Jun, [facility] [place] [facility] [address] [facility] [id number] [place] [address] Jun, [facility] [place] [facility] [address] [id number] [place] [address] Jun, [facility] [place] [facility] [address] [id number] [place] [address] Jun, [facility] [place] [facility] [address] [id number] [place] [address] Jun, [facility] [place] [facility] [address] [facility] [id number] [place] [address] Jun, [facility] [place] [facility] [address] [id number] [place] [address] Jun, [facility] [place] [facility] [address] [id number] [place] [address] Jun, [facility] [place] [facility] [address] [facility] [id number] [place] [address] Jun, [facility] [place] [facility] [address] [id number] [place] [address] Jun, [facility] [place] [facility] [address] [id number] [place] [address] Jun, [facility] [place] [facility] [address] [facility] [id number] [place] [address] Jun, [facility] [place] [facility] [address] [id number] [place] [address] May, [facility] [place] [facility] [address] [id number] [place] [address] May, 2013 [facility] [place] [facility] [address] [id number] [facility] [place] [address] May, 2013 [facility] [place] [facility] [address] [facility] [id number] [place] [address] May, 2013 [facility] [place] [facility] [address] [id number] [facility] [place] [address] May, 2013 [facility] [place] [facility] [address] [facility] [id number] [place] [address] May, 2013 [facility] [place] [facility] [address] [facility] [id number] [place] [address] May, 2013 [facility] [place] [facility] [address] [facility] [id number] [place] [address] May, 2013 [facility] [place] [facility] [address] [id number] [place] [address] May, 2013 [facility] [place] [facility] [address] [facility] [id number] [place] [address] May, [facility] [place] [facility] [address] [id number] [place] [address] May, [facility] [place] [facility] [address] [id number] [place] [address] May, [facility] [place] [facility] [address] [id number] [place] [address] May, [facility] [place] [facility] [address] [facility] [id number] [place] [address] Apr, [facility] [place] [facility] [address] [id number] [place] [address] Apr, [facility] [place] [facility] [address] [facility] [id number] [place] [address] Apr, [facility] [place] [facility] [address] [id number] [place] [address] Apr, [facility] [place] [facility] [address] [facility] [id number] [facility] [place] [address] Apr, [facility] [place] [facility] [address] [facility] [id number] [facility] [place] [address] Apr, [facility] [place] [facility] [address] [facility] [id number] [place] [address] Apr, [facility] [place] [facility] [address] [id number] [place] [address] Apr, [facility] [place] [facility] [address] [id number] [facility] [place] [address] Apr, [facility] [place] [facility] [address] [facility] [id number] [facility] [place] [address] March, [facility] [place] [facility] [address] [id number] [place] [address] March, [facility] [place] [facility] [address] [id number] [place] [address] March, [facility] [place] [facility] [address] [id number] [place] [address] March, [facility] [place] [facility] [address] [facility] [id number] [facility] [place] [address] March, [facility] [place] [facility] [address] [id number] [place] [address] March, [facility] [place] [facility] [address] [id number] [place] [address] March, [facility] [place] [facility] [address] [id number] [facility] [place] [address] March, [facility] [place] [facility] [address] [facility] [id number] [facility] [place] [address] March, [facility] [place] [facility] [address] [id number] [place] [address] March, [facility] [place] [facility] [address] [id number] [facility] [place] [address] March, [facility] [place] [facility] [address] [id number] [place] [address] March, [facility] [place] [facility] [address] [id number] [place] [address] March, [facility] [place] [facility] [address] [id number] [place] [address] March, [facility] [place] [facility] [address] [id number] [place] [address] March, [facility] [place] [facility] [address] [id number] [place] [address] March, [facility] [place] [facility] [address] [id number] [place] [address] March, [facility] [place] [facility] [address] [id number] [place] [address] March, [facility] [place] [facility] [address] [id number] [place] [address] March, [facility] [place] [facility] [address] [id number] [place] [address] March, [facility] [place] [facility] [address] [id number] [place] [address] Feb, [facility] [place] [facility] [address] [id number] [place] [address] Feb, [facility] [place] [facility] [address] [id number] [place] [address] Feb, [facility] [place] [facility] [address] [id number] [place] [address] Feb, [facility] [place] [facility] [address] [id number] [place] [address] Feb, [facility] [place] [facility] [address] [id number] [place] [address] Feb, [facility] [place] [facility] [address] [id number] [place] [address] Feb, [facility] [place] [facility] [address] [id number] [place] [address] Feb, [facility] [place] [facility] [address] [id number] [place] [address] Jan, [facility] [place] [facility] [address] [facility] [id number] [place] [address] Jan, [facility] [place] [facility] [address] [facility] [id number] [facility] [place] [address] Jan, [facility] [place] [facility] [address] [facility] [id number] [place] [address] Jan, [facility] [place] [facility] [address] [id number] [place] [address] Jan, [facility] [place] [facility] [address] [facility] [id number] [facility] [place] [address] Jan, [facility] [place] [facility] [address] [id number] [place] [address] Jan, [facility] [place] [facility] [address] [id number] [place] [address] Jan, [facility] [place] [facility] [address] [id number] [place] [address] Jan, [facility] [place] [facility] [address] [id number] [place] [address] Jan, [facility] [place] [facility] [address] [id number] [place] [address] Dec, [facility] [place] [facility] [address] [id number] [place] [address] Dec, [facility] [place] [facility] [address] [id number] [place] [address] Dec, [facility] [place] [facility] [address] [id number] [place] [address] 2013 [facility] [place] [facility] [address] [facility] [id number] [place] [address] 2013 [facility] [place] [facility] [address] [id number] [place] [address] 13 Dec, 2013 [facility] [place] [facility] [address] [id number] [place] [address] 12 Dec, 2013 [facility] [place] [facility] [address] [id number] [place] [address] Dec, [facility] [place] [facility] [address] [id number] [place] [address] Nov, [facility] [place] [facility] [address] [id number] [place] [address] Nov, [facility] [place] [facility] [address] [id number] [place] [address] Nov, [facility] [place] [facility] [address] [id number] [place] [address] Nov, [facility] [place] [facility] [address] [id number] [place] [address] Nov, [facility] [place] [facility] [address] [id number] [place] [address] Nov, [facility] [place] [facility] [address] [id number] [place] [address] Nov, [facility] [place] [facility] [address] [id number] [place] [address] Nov, [facility] [place] [facility] [address] [id number] [place] [address] Nov, [facility] [place] [facility] [address] [id number] [place] [address] Nov, [facility] [place] [facility] [address] [id number] [place] [address] Nov, [facility] [place] [facility] [address] [id number] [place] [address] Nov, [facility] [place] [facility] [address] [id number] [place] [address] Nov, [facility] [place] [facility] [address] [id number] [place] [address] Oct, [facility] [place] [facility] [address] [id number] [place] [address] Oct, [facility] [place] [facility] [address] [id number] [place] [address] Oct, [facility] [address] [id number] [place] [address] Oct, 2012 [facility] [place] [facility] [address] [id number] [place] [address] Oct, [facility] [place] [facility] [address] [id number] [place] [address] Oct, [facility] [place] [facility] [address] [id number] [place] [address] Oct, [facility] [place] [facility] [address] [id number] [place] [address] Oct, [facility] [place] [facility] [address] [id number] [place] [address] Oct, [facility] [place] [facility] [address] [id number] [place] [address] Oct, [facility] [place] [facility] [id number] [place] [address] Oct, [facility] [place] [facility] [address] [id number] [place] [address] Oct, [facility] [place] [facility] [address] [id number] [place] [address] Oct, [facility] [place] [facility] [address] [id number] [place] [address] Oct, [facility] [place] [facility] [address] [id number] [place] [address] 14 Sep, 2013 [facility] [place] [facility] [address] [id number] [place] [address] 14 Sep, 2013 [facility] [place] [facility] [address] [id number] [place] [address] 05 Sep, 2013 [facility] [place] [facility] [address] [id number] [place] [address] 05 Sep, 2013 [facility] [place] [facility] [address] [id number] [place] [address] 04 Sep, 2013 [facility] [place] [facility] [address] [id number] [place] [address] Sep, [facility] [place] [facility] [address] [id number] [place] [address] Sep, [facility] [place] [facility] [address] [id number] [place] [address] Sep, [facility] [place] [facility] [address] [id number] [place] [address] Sep, [facility] [place] [facility] [address] [id number] [place] [address] Sep, [facility] [place] [facility] [address] [id number] [place] [address] Aug, [facility] [place] [facility] [address] [id number] [place] [address] Aug, [facility] [place] [facility] [address] [id number] [place] [address] Aug, [facility] [place] [facility] [address] [id number] [place] [address] Aug, [facility] [place] [facility] [address] [id number] [place] [address] Aug, [facility] [place] [facility] [address] [id number] [place] [address] Aug, [facility] [place] [facility] [address] [id number] [place] [address] Aug, [facility] [place] [facility] [address] [id number] [place] [address] Aug, [facility] [place] [facility] [address] [id number] [place] [address] Aug, [facility] [place] [facility] [address] [id number] [place] [address] Aug, [facility] [place] [facility] [address] [id number] [place] [address] Aug, [facility] [place] [facility] [address] [id number] [place] [address] Aug, [facility] [place] [facility] [address] [id number] [facility] [place] [address] 18 Aug, 2012 [facility] [place] [facility] [address] [id number] [place] [address] 18 Aug, 2013 [facility] [place] [facility] [address] [facility] [id number] [place] [address] 17 Aug, 2013 [facility] [place] [facility] [address] [facility] [id number] [place] [address] 14 Aug, 2013 [facility] [place] [facility] [address] [facility] [id number] [place] [address] 14 Aug, 2013 [facility] [place] [facility] [address] [facility] [id number] [place] [address] 01 Aug, 2013 [facility] [place] [facility] [address] [id number] [place] [address] 20 Jul, 2013 [facility] [place] [facility] [address] [id number] [place] [address] 19 Jul, 2013 [facility] [place] [facility] [address] [id number] [place] [address] 18 Jul, 2013 [facility] [place] [facility] [address] [facility] [id number] [place] [address] 11 Jul, 2013 [facility] [place] [facility] [address] [id number] [place] [address] Jul, [facility] [place] [facility] [address] [id number] [place] [address] 28 Jun, 2013 [facility] [place] [facility] [address] [facility] [id number] [place] [address] Jun, [facility] [address] [facility] [id number] [place] [address] Jun, [facility] [address] [id number] [place] [address] 15 Jun, 2013 [facility] [address] [facility] [id number] [place] [address] 14 Jun, 2013 [facility] [address] [id number] [place] [address] Jun, [facility] [address] [id number] [place] [address] Jun, [facility] [address] [facility] [id number] [place] [address] Jun, [facility] [address] [facility] [id number] [place] [address] Jun, [facility] [address] [id number] [facility] [place] [address] Jun, [facility] [address] [facility] [id number] [facility] [place] [address] May, [facility] [address] [id number] [place] [address] May, [facility] [address] [id number] [place] [address] May, [facility] [address] [id number] [place] [address] May, [facility] [address] [id number] [place] [address] May, [facility] [address] [id number] [place] [address] May, [facility] [address] [id number] [place] [address] May, [facility] [address] [id number] [place] [address] May, [facility] [address] [id number] [place] [address] May, [facility] [address] [facility] [id number] [place] [address] Apr, [facility] [address] [id number] [place] [address] Apr, [facility] [address] [id number] [place] [address] Apr, [facility] [address] [id number] [place] [address] Apr, [facility] [address] [id number] [place] [address] Apr, [facility] [address] [id number] [place] [address] Apr, [facility] [address] [id number] [place] [address] Apr, [facility] [address] [id number] [place] [address] March, [facility] [address] [id number] [facility] [address] Feb, [facility] [address] [id number] [place] [address] Feb, [facility] [address] [id number] [place] [address] Feb, [facility] [address] [id number] [place] [address] Jan, [facility] [address] [id number] [place] [address] Jan, [facility] [address] [id number] [place] [address] Jan, [facility] [address] [id number] [place] [address] Jan, [facility] [address] [id number] [place] [address] Jan, [facility] [address] [id number] [place] [address] 08 Jan, 2013 [facility] [address] [id number] [place] [address] 07 Jan, 2013 [facility] [address] [id number] [place] [address] Jan, [facility] [address] [id number] [place] [address] Dec, [facility] [address] [id number] [place] [address] 25 Dec, 2012 [facility] [address] [id number] [place] [address] Dec, [facility] [address] [id number] [place] [address] Dec, [facility] [address] [id number] [place] [address] 07 Dec, 2012 [facility] [address] [id number] [place] [address] 06 Dec, 2012 [facility] [address] [id number] [place] [address] 05 Dec, 2012 [facility] [address] [id number] [place] [address] Nov, [facility] [address] [id number] [place] [address] Nov, [facility] [address] [id number] [place] [address] Nov, [facility] [id number] [place] [address] Nov, [facility] [id number] [place] [address] Nov, [facility] [id number] [place] [address] Nov, [facility] [id number] [place] [address] Nov, [facility] [id number] [place] [address] Oct, [facility] [id number] [place] [address] Oct, [facility] [id number] [place] [address] Oct, [facility] [id number] [place] [address] Oct, [facility] [id number] [place] [address] Oct, [facility] [id number] [place] [address] Oct, [facility] [id number] [place] [address] Oct, [facility] [id number] [place] [address] Oct, [facility] [id number] [place] [address] Oct, [facility] [id number] [place] [address] Oct, [facility] [id number] [place] [address] Oct, [facility] [id number] [place] [address] Oct, [facility] [id number] [place] [address] Sep, [facility] [id number] [place] [address] Sep, [facility] [id number] [place] [address] Sep, [facility] [id number] [place] [address] Sep, [facility] [id number] [place] [address] Sep, [facility] [id number] [place] [address] Sep, [facility] [id number] [place] [address] Sep, [facility] [id number] [place] [address] Sep, [facility] [id number] [place] [address] Sep, [facility] [id number] [place] [address] Sep, [facility] [id number] [place] [address] Sep, [facility] [id number] [place] [address] Aug, [facility] [id number] [place] [address] Aug, [facility] [id number] [place] [address] Aug, [facility] [id number] [place] [address] Aug, [facility] [id number] [place] [address] Aug, [facility] [id number] [place] [address] Aug, [facility] [id number] [place] [address] Aug, [facility] [id number] [place] [address] Aug, [facility] [id number] [place] [address] Aug, [facility] [id number] [place] [address] Aug, [facility] [id number] [place] [address] 22 Jul, 2012 [facility] [id number] [place] [address] 20 Jul, 2012 [facility] [id number] [place] [address] 10 Jul, 2011 [facility] [id number] [place] [address] Jul, [facility] [address] [id number] [place] [address] Jun, [facility] [id number] [place] [address] Jun, [facility] [id number] [place] [address] Jun, [facility] [id number] [place] [address] Jun, [facility] [id number] [place] [address] Jun, [facility] [id number] [place] [address] Jun, [facility] [id number] [place] [address] Jun, [facility] [id number] [place] [address] May, [facility] [id number] [place] [address] May, [facility] [id number] [place] [address] May, [facility] [id number] [place] [address] May, [facility] [id number] [place] [address] May, [facility] [id number] [place] [address] Apr, [facility] [id number] [place] [address] Apr, [facility] [id number] [place] [address] Apr, [facility] [id number] [place] [address] Apr, [facility] [id number] [place] [address] Apr, [facility] [address] [id number] [place] [address] March, [facility] [id number] [place] [address] March, [facility] [id number] [place] [address] March, [facility] [address] [id number] [place] [address] March, [facility] [address] [facility] [id number] [place] [address] March, [facility] [address] [id number] [place] [address] March, [facility] [id number] [place] [address] March, [facility] [id number] [place] [address] March, [facility] [id number] [place] [address] March, [facility] [id number] [place] [address] March, [facility] [id number] [place] [address] Feb, [facility] [id number] [place] [address] Feb, [facility] [id number] [place] [address] Feb, [facility] [address] [id number] [place] [address] Feb, [facility] [id number] [place] [address] Feb, [facility] [id number] [place] [address] Feb, [facility] [id number] [place] [address] Feb, [facility] [id number] [place] [address] Feb, [facility] [id number] [place] [address] Feb, [facility] [id number] [place] [address] Jan, [facility] [id number] [place] [address] Jan, [facility] [id number] [place] [address] Jan, [facility] [id number] [place] [address] Jan, [facility] [id number] [place] [address] Dec, [facility] [id number] [place] [address] Dec, [facility] [id number] [place] [address] Nov, [facility] [id number] [place] [address] Nov, [facility] [id number] [place] [address] Nov, [facility] [id number] [place] [address] Nov, [facility] [id number] [place] [address] Nov, [facility] [id number] [place] [address] Oct, [facility] [id number] [place] [address] Oct, [facility] [id number] [place] [address] Oct, [facility] [id number] [place] [address] Oct, [facility] [id number] [place] [address] Oct, [facility] [id number] [place] [address] Oct, [facility] [id number] [place] [address] Oct, [facility] [id number] [place] [address] Oct, [facility] [id number] [place] [address] Sep, IMMUNIZATIONS No Known Immunizations SOCIAL HISTORY [...] Hospitalization History [facility]- Urosepsis, ab d pain and fever, discharged 11/27/2017 11/26/2017 Hospitalization History [facility] [place]- Went Unrepsonsive, Hit head 2017 Hospitalization History [facility] [place]- Back Pain 05/05/ 8
--- OUTSIDE RECORDS SUMMARY | 2020-06-18 15:06 | XMS REPORT ---
Author Author Sanjuanita Abdul Doctor Organization [facility] Address Unknown Phone Unavailable Care Team Providers Care Search Strategist Name Role Phone Migration, Doctor Unavailable Unavailable PROBLEMS Type Condition ICD9-CM Code [id number] Code Onset Dates Condition S tatus SNOMED Code Problem Coronary artery disease I25.10 Active 93674327 Problem Hypertension I10 Active 2517422 3 Problem Other chronic pain G89.29 Active 8 5997826 Problem Hyperlipidemia E78.5 Active 22729 004 Problem Type 2 diabetes mellitus wit hout complication, without long-term current use of insulin E11.9 Active 105318907 Problem Low back pain M54.5 Active 163883 009 Problem Pharyngeal dysphagia R13.13 Active 40336845753846 Problem Anxiety F41.9 Active 31091227 Problem Peripheral vascular disease I73.9 Ac tive 316902944 Problem Suprapubic catheter Z93.59 Active 134299738 Problem Reactive depression F32.9 Active 91931971 Problem Neurogenic bladder N31.9 Active 3 72129438 Problem Ventral hernia without obstruction or gangrene K43 .9 Active 780711019 Problem Insomnia G47.00 Active 343608470 Problem Paroxysmal atrial fibrillation I48.0 Active 222429736 Problem Postmenopausal atrophic vaginitis N95.2 Active 76285792 Problem Encounter for suprapubic catheter care Z43.5 Active 128648005 ALLERGIES No Information ENCOUNTERS Encounter Location Date Diagnosis [place] [address] [facility] [place] [address] Nov, Hypertension I10 Via [facility] [address] [place] [id number] Nov, Pneumonia of both lungs due to infectiou s organism, unspecified part of lung J18.9 and Suprapubic catheter Z93.59 [place] [address] [facility] [place] [address] Nov, Hypertension I10 and Reactive depression F32.9 [place] [address] [facility] [place] [address] Oct, Strain of right shoulder, subsequent enc ounter S46.911D and Anxiety F41.9 [place] [address] [id number] [place] [address] Oct, Via [facility] [address] [place] [id number] Oct, Suprapubic catheter Z93.59 and Candidias is, intertriginous B37.2 [place] [address] [id number] [place] [address] Oct, Suprapubic catheter Z93.59 [place] [address] [id number] [place] [address] Oct, Anxiety F41.9 and Strain of right should er, subsequent encounter S46.911D [place] [address] [id number] [place] [address] Sep, [place] [address] [id number] [place] [address] Sep, [place] [address] [id number] [place] [address] Sep, Via [facility] [address] [place] [id number] Sep, Suprapubic catheter Z93.59 [place] [address] [id number] [place] [address] Sep, Anxiety F41.9 and Strain of right should er, subsequent encounter S46.911D [place] [address] [id number] [place] [address] Aug, [facility] [address] [id number] [place] [address] Aug, [facility] [address] [id number] [place] [address] Aug, Anxiety F41.9 and Strain of right should er, subsequent encounter S46.911D [facility] [address] [place] [id number] Aug, Suprapubic catheter Z93.59 [place] [address] [address] Jul, Strain of right shoulder, subsequent enc ounter S46.911D and Anxiety F41.9 [place] [address] [address] Jul, Anxiety F41.9 [place] [address] [address] Jun, [place] [address] [address] Jun, [place] [address] [address] Jun, [place] [address] [address] Jun, Strain of right shoulder, subsequent enc ounter S46.911D [place] [address] [address] Jun, Strain of right shoulder, subsequent enc ounter S46.911D [place] [address] [address] Jun, Anxiety F41.9 Via [facility] [address] [place] [address] Jun, Neurogenic bladder N31.9 and Anxiety F41 .9 [facility] [address] [place] [id number] May, Anxiety F41.9 [place] [address] [address] May, Dysuria R30.0 [place] [address] [address] May, Strain of right shoulder, subsequent enc ounter S46.911D and Anxiety F41.9 [place] [address] [address] 27 Apr, 2019 [facility] [address] [place] [id number] 18 Apr, 2019 Strain of right shoulder, subsequent enc ounter S46.911D [place] [address] [address] 14 Apr, 2019 Strain of right shoulder, subsequent enc ounter S46.911D and Anxiety F41.9 [facility] [address] [place] [id number] 13 Apr, 2019 Type 2 diabetes mellitus without complic ation, without long-term current use of insulin E11.9 and Neurogenic bladder N31.9 [facility] [address] [place] [id number] 11 Apr, 2019 Strain of right shoulder, subsequent enc ounter S46.911D ; History of GI bleed Z87.19 ; Neurogenic bladder N31.9 and Reactive depression F32.9 [place] [address] [address] 10 Apr, 2019 Acute pain of left shoulder M25.512 [place] [address] [address] 07 Apr, 2019 [place] [address] [address] 06 Apr, 2019 Anxiety F41.9 and Other chronic pain G89 .29 [facility] [address] [place] [id number] March, Gastrointestinal hemorrhage associated w ith acute gastritis K29.01 [place] [address] [address] March, [facility] [address] [place] [id number] March, Bronchitis J40 [place] [address] [address] March, Cough R05 [place] [address] [address] March, Other chronic pain G89.29 [facility] [address] [address] March, Anxiety F41.9 [facility] [address] [address] March, [facility] [address] [address] Feb, Other chronic pain G89.29 [facility] [address] [address] Feb, Anxiety F41.9 [facility] [address] [address] Feb, Other chronic pain G89.29 Via [facility] [address] [place] [id number] Feb, Neurogenic bladder N31.9 and Suprapubic catheter Z93.59 [facility] [address] [address] Jan, Anxiety F41.9 [facility] [address] [address] Dec, Anxiety F41.9 [facility] [address] [address] Dec, Other chronic pain G89.29 and Anxiety F4 1.9 [facility] [address] [address] Dec, Via [facility] [address] [place] [id number] Dec, Neurogenic bladder N31.9 and Suprapubic catheter Z93.59 [facility] [address] [address] Nov, Other chronic pain G89.29 and Anxiety F4 1.9 [facility] [address] [address] Nov, Via [facility] [address] [place] [address] Nov, Suprapubic catheter Z93.59 [facility] [address] [address] Oct, Other chronic pain G89.29 and Anxiety F4 1.9 [facility] [address] [address] Oct, [facility] [address] [address] Oct, Suprapubic catheter Z93.59 [place] [address] [address] Oct, Via [facility] [address] [place] [address] Oct, [place] [address] [address] Oct, Anxiety F41.9 [place] [address] [address] Oct, Anxiety F41.9 Via [facility] [address] [place] [address] Oct, Other chronic pain G89.29 [place] [address] [address] Sep, Other chronic pain G89.29 Via [facility] [address] [place] [address] Sep, Suprapubic catheter Z93.59 and Cervicalg ia M54.2 [facility] [address] [address] Sep, [facility] [address] [address] Sep, [place] [address] [address] Sep, Via [facility] [address] [place] [address] Aug, Cystitis N30.90 [place] [address] [address] Aug, [place] [address] [address] Aug, Other chronic pain G89.29 [place] [address] [address] Aug, Via [facility] [address] [place] [address] Aug, Encounter for suprapubic catheter care Z 43.5 [place] [address] [address] Jul, [facility] [address] [place] [id number] Jul, [place] [address] [address] Jul, Other chronic pain G89.29 [place] [address] [address] Jul, [place] [address] [address] Jul, Via [facility] [address] [place] [id number] Jun, Postmenopausal atrophic vaginitis N95.2 [place] [address] [address] Jun, Other chronic pain G89.29 [place] [address] [address] Jun, [facility] [address] [place] [id number] May, Anxiety F41.9 ; Type 2 diabetes mellitus without complication, without long-term current use of insulin E11.9 ; Hypertension I10 ; Low back pain M54.5 ; Paroxysmal atrial fibrillation I48.0 and 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 [place] [address] [address] May, Other chronic pain G89.29 [facility] [address] [place] [address] May, Low back pain M54.5 [facility] [address] [address] May, [facility] [address] [address] Apr, Other chronic pain G89.29 [facility] [address] [address] Apr, [facility] [address] [address] Apr, [facility] [address] [place] [id number] Apr, Closed compression fracture of L3 lumbar vertebra with routine healing, subsequent encounter S32.030D [facility] [address] [place] [address] Apr, Low back pain M54.5 [facility] [address] [place] [id number] Apr, Coccydynia M53.3 [facility] [address] [address] March, [facility] [address] [address] March, Other chronic pain G89.29 [facility] [address] [address] March, [facility] [address] [address] March, [facility] [address] [address] Feb, [facility] [address] [address] Feb, Other chronic pain G89.29 [facility] [address] [place] [address] Feb, Other chronic pain G89.29 and Anxiety F4 1.9 [place] [address] [place] [id number] [place] [address] Feb, [place] [address] [address] Jan, [place] [address] [address] Jan, [place] [address] [address] Jan, [place] [address] [address] Jan, [place] [address] [address] Dec, Via [facility] [place] [facility] [address] [place] [id number] Dec, Peripheral vascular disease I73.9 ; 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 ; Other chronic pain G89.29 ; Anxiety F41.9 ; Reactive depression F32.9 ; Insomnia G47.00 and Type 2 diabetes mellitus without complication, without long-term current use of insulin E11.[address] [id number] [address] Nov, [place] [address] [id number] [place] [address] Nov, Anxiety F41.9 [place] [address] [address] Nov, [place] [address] [id number] [place] [id number] Nov, Anxiety F41.9 [facility] [address] [place] [address] Nov, Status post surgery Z98.890 ; Confused R 41.0 ; Anxiety F41.9 and Other chronic pain G89.29 [place] [address] [id number] [place] [id number] Nov, Other chronic pain G89.29 [facility] [address] [place] [id number] [place] [address] Oct, [facility] [address] [id number] [place] [id number] Oct, Other chronic pain G89.29 [facility] [address] [address] Oct, Anxiety F41.9 [facility] [address] [id number] [place] [id number] Sep, Other chronic pain G89.29 [facility] [address] [id number] [place] [id number] Sep, [facility] [address] [place] [address] Aug, Dysuria R30.0 and Anxiety F41.9 [facility] [address] [place] [id number] [place] [address] Aug, [facility] [address] [id number] [place] [id number] Aug, Other chronic pain G89.29 [facility] [address] [place] [id number] [place] [address] Jul, Other chronic pain G89.29 [facility] [address] [id number] [place] [id number] Jun, [facility] [address] [id number] [place] [id number] Jun, Other chronic pain G89.29 [facility] [address] [address] Jun, [facility] [address] [address] May, Other chronic pain G89.29 [facility] [address] [address] Apr, Other chronic pain G89.29 [facility] [address] [place] [id number] Apr, Reactive depression F32.9 and Pharyngeal dysphagia R13.13 [place] [address] [address] Apr, Urinary tract infection without hematuri a, site unspecified N39.0 [place] [address] [address] March, Other chronic pain G89.29 [place] [address] [address] Feb, Other chronic pain G89.29 [place] [address] [address] Feb, [place] [address] [id number] [place] [address] Feb, [facility] [facility] [address] [place] [address] Feb, Dysuria R30.0 and Ventral hernia without obstruction or gangrene K43.9 [place] [address] [address] Jan, Other chronic pain G89.29 [place] [address] [id number] [place] [address] Dec, Other chronic pain G89.29 [place] [address] [address] Nov, Other chronic pain G89.29 [facility] [address] [place] [id number] Nov, Lymphadenitis I88.9 [place] [address] [address] Nov, Other chronic pain G89.29 [place] [address] [address] Nov, [facility] [address] [id number] [place] [address] Nov, Other chronic pain G89.29 [facility] [address] [place] [id number] Oct, Low back pain M54.5 ; Hypertension I10 a nd Type 2 diabetes mellitus without complication, without long-term current use of insulin E11.9 [facility] [address] [place] [id number] [place] [address] Oct, [facility] [address] [place] [id number] [place] [address] Oct, [facility] [address] [address] Oct, [facility] [address] [place] [id number] [place] [address] Oct, [facility] [address] [address] Sep, [facility] [address] [place] [id number] [place] [address] Sep, [facility] [address] [place] [place] [address] Aug, Other chronic pain G89.29 [facility] [address] [id number] [place] [address] Jul, [facility] [address] [place] [id number] [place] [address] Jul, [facility] [id number] [place] [address] Jul, [facility] [address] [address] Jun, [facility] [address] [place] [address] Jun, [facility] [address] [place] [address] Jun, Low back pain M54.5 ; Other chronic pain G89.29 and Coronary artery disease I25.10 [facility] [id number] [place] [address] Jun, [facility] [address] [facility] [place] [address] May, [facility] [address] [place] [address] May, [facility] [address] [address] May, Other chronic pain G89.29 [facility] [id number] [place] [address] May, [facility] [id number] [place] [address] Apr, [facility] [address] [address] Apr, Acute cystitis without hematuria N30.00 [facility] [address] [place] [address] 16 Apr, 2016 Acute cystitis without hematuria N30.00 ; Coronary artery disease I25.10 ; Low back pain M54.5 and Other chronic pain G89.29 [facility] [id number] [place] [address] Apr, Other chronic pain G89.29 [facility] [address] [place] [address] March, Other chronic pain G89.29 [facility] [id number] [place] [address] Feb, [facility] [address] [address] Feb, Arthritis M19.90 [facility] [id number] [place] [address] Feb, [facility] [address] [address] Jan, [facility] [address] [address] Jan, [facility] [address] [address] Jan, Other chronic pain G89.29 [facility] [address] [address] Jan, Hypertension I10 ; Coronary artery disea se I25.10 and Insomnia G47.00 [facility] [address] [address] Jan, [facility] [address] [address] Dec, Right hip pain M25.551 [facility] [address] [address] Dec, [facility] [address] [address] Dec, [facility] [address] [address] Dec, [facility] [address] [address] Dec, Other chronic pain G89.29 [facility] [address] [address] Dec, [facility] [address] [address] Nov, [facility] [address] [address] Nov, Other chronic pain G89.29 [facility] [address] [address] Nov, Right hip pain M25.551 and Coronary karissa ry disease I25.10 [facility] [address] [address] Nov, Other chronic pain G89.29 [facility] [address] [address] Oct, [facility] [address] [address] Oct, [facility] [address] [address] Sep, [facility] [address] [address] Sep, [facility] [address] [address] Aug, [facility] [address] [address] Aug, Hypertension I10 ; Coronary artery disea se I25.10 and Arthritis M19.90 [facility] [address] [address] Jun, [facility] [address] [address] Jun, Essential hypertension, benign 401.1 ; O ther chronic pain 338.29 and Chronic airway obstruction, not elsewhere classified 496 [facility] [address] [address] Jun, [facility] [address] [address] Jun, [facility] [address] [address] Jun, [facility] [address] [address] May, [facility] [address] [address] May, [facility] [address] [address] Apr, [facility] [address] [address] Apr, [facility] [address] [id number] [place] [address] Apr, [facility] [address] [id number] [place] [address] March, [facility] [address] [id number] [place] [address] March, [facility] [address] [id number] [place] [address] March, [facility] [address] [id number] [place] [address] March, [facility] [address] [id number] [place] [address] March, Sialadenitis 527.2 [facility] [address] [id number] [place] [address] Feb, [facility] [address] [id number] [place] [address] Feb, [facility] [address] [id number] [place] [address] Feb, [facility] [address] [id number] [place] [address] Feb, [facility] [address] [id number] [place] [address] Feb, [facility] [address] [id number] [place] [address] Jan, [facility] [address] [id number] [place] [address] Jan, [facility] [address] [facility] [id number] [place] [address] Jan, [facility] [address] [facility] [id number] [place] [address] Jan, [facility] [id number] [place] [address] 06 Jan, 2015 [facility] [address] [id number] [place] [address] Jan, [facility] [address] [id number] [place] [address] Dec, [facility] [address] [facility] [id number] [place] [address] Dec, [facility] [address] [facility] [id number] [place] [address] Dec, [facility] [address] [facility] [id number] [place] [address] Dec, [facility] [address] [facility] [id number] [place] [address] Dec, [facility] [address] [facility] [id number] [place] [address] Dec, [facility] [address] [facility] [id number] [place] [address] Nov, [facility] [address] [facility] [id number] [place] [address] Nov, [facility] [address] [facility] [id number] [place] [address] Nov, [facility] [address] [facility] [id number] [place] [address] Nov, [facility] [address] [facility] [id number] [place] [address] Nov, [facility] [address] [facility] [id number] [place] [address] Nov, [facility] [address] [facility] [id number] [place] [address] Nov, [facility] [address] [facility] [id number] [place] [address] Nov, [facility] [address] [facility] [id number] [place] [address] Nov, [facility] [address] [facility] [id number] [place] [address] Nov, [facility] [address] [facility] [id number] [place] [address] Nov, [facility] [address] [facility] [id number] [place] [address] Nov, [facility] [address] [facility] [id number] [place] [address] Nov, [facility] [address] [facility] [id number] [place] [address] Nov, [facility] [address] [facility] [id number] [place] [address] Oct, [facility] [address] [facility] [id number] [place] [address] Oct, [facility] [address] [facility] [id number] [place] [address] Oct, [facility] [address] [facility] [id number] [place] [address] Oct, [facility] [address] [facility] [id number] [place] [address] Oct, [facility] [address] [id number] [place] [address] Oct, [facility] [address] [id number] [place] [address] Oct, [facility] [place] [facility] [address] [id number] [place] [address] Oct, [facility] [place] [facility] [address] [id number] [place] [address] Oct, [facility] [place] [facility] [address] [id number] [place] [address] Sep, [facility] [place] [facility] [address] [id number] [place] [address] Sep, [facility] [place] [facility] [address] [id number] [place] [address] Sep, [facility] [place] [facility] [address] [id number] [place] [address] Sep, [facility] [place] [facility] [address] [facility] [id number] [place] [address] Sep, [facility] [place] [facility] [address] [id number] [place] [address] Sep, [facility] [place] [facility] [address] [id number] [place] [address] Sep, [facility] [place] [facility] [address] [id number] [place] [address] Sep, [facility] [place] [facility] [address] [facility] [id number] [place] [address] Sep, [facility] [place] [facility] [address] [id number] [place] [address] Sep, [facility] [place] [facility] [address] [id number] [place] [address] Sep, [facility] [place] [facility] [address] [id number] [place] [address] Sep, [facility] [place] [facility] [address] [id number] [place] [address] Aug, [facility] [place] [facility] [address] [id number] [place] [address] Aug, [facility] [place] [facility] [address] [id number] [place] [address] Aug, [facility] [place] [facility] [address] [id number] [place] [address] Aug, [facility] [place] [facility] [address] [id number] [place] [address] Aug, [facility] [place] [facility] [address] [id number] [place] [address] Aug, [facility] [place] [facility] [address] [id number] [place] [address] Aug, [facility] [place] [facility] [address] [id number] [place] [address] Aug, [facility] [place] [facility] [address] [id number] [place] [address] 30 Jul, 2013 [facility] [place] [facility] [address] [id number] [place] [address] 30 Jul, 2013 [facility] [place] [facility] [address] [facility] [id number] [place] [address] 30 Jul, 2013 [facility] [place] [facility] [address] [id number] [place] [address] 30 Jul, 2013 [facility] [place] [facility] [address] [facility] [id number] [place] [address] 25 Jul, 2013 [facility] [place] [facility] [address] [id number] [place] [address] 25 Jul, 2013 [facility] [place] [facility] [address] [id number] [place] [address] 15 Jul, 2014 [facility] [place] [facility] [address] [id number] [place] [address] 15 Jul, 2014 [facility] [place] [facility] [address] [id number] [place] [address] Jul, [facility] [place] [facility] [address] [id number] [place] [address] Jul, [facility] [place] [facility] [address] [id number] [place] [address] Jun, [facility] [place] [facility] [address] [id number] [place] [address] Jun, [facility] [place] [facility] [address] [id number] [place] [address] Jun, [facility] [place] [facility] [address] [id number] [place] [address] Jun, [facility] [place] [facility] [address] [id number] [place] [address] Jun, [facility] [place] [facility] [address] [id number] [place] [address] Jun, [facility] [place] [facility] [address] [id number] [place] [address] Jun, [facility] [place] [facility] [address] [id number] [place] [address] Jun, [facility] [place] [facility] [address] [id number] [place] [address] Jun, [facility] [place] [facility] [address] [facility] [id number] [place] [address] Jun, [facility] [place] [facility] [address] [id number] [place] [address] Jun, [facility] [place] [facility] [address] [facility] [id number] [place] [address] Jun, [facility] [place] [facility] [address] [id number] [place] [address] Jun, [facility] [place] [facility] [address] [id number] [place] [address] Jun, [facility] [place] [facility] [address] [id number] [place] [address] Jun, [facility] [place] [facility] [address] [id number] [place] [address] Jun, [facility] [place] [facility] [address] [id number] [place] [address] Jun, [facility] [place] [facility] [address] [id number] [place] [address] Jun, [facility] [place] [facility] [address] [facility] [id number] [place] [address] Jun, [facility] [place] [facility] [address] [id number] [place] [address] Jun, [facility] [place] [facility] [address] [id number] [place] [address] Jun, [facility] [place] [facility] [address] [id number] [place] [address] Jun, [facility] [place] [facility] [address] [id number] [place] [address] May, [facility] [place] [facility] [address] [id number] [place] [address] May, 2013 [facility] [place] [facility] [address] [id number] [place] [address] May, 2013 [facility] [place] [facility] [address] [id number] [place] [address] May, [facility] [place] [facility] [address] [facility] [id number] [place] [address] May, 2013 [facility] [place] [facility] [address] [id number] [place] [address] May, 2013 [facility] [place] [facility] [address] [facility] [id number] [place] [address] May, 2013 [facility] [place] [facility] [address] [id number] [place] [address] May, 2013 [facility] [place] [facility] [address] [facility] [id number] [place] [address] May, 2013 [facility] [place] [facility] [address] [id number] [place] [address] May, [facility] [place] [facility] [address] [facility] [id number] [place] [address] May, [facility] [place] [facility] [address] [facility] [id number] [place] [address] May, [facility] [place] [facility] [address] [facility] [id number] [place] [address] May, [facility] [place] [facility] [address] [id number] [place] [address] Apr, [facility] [place] [facility] [address] [facility] [id number] [place] [address] Apr, [facility] [place] [facility] [address] [id number] [place] [address] Apr, [facility] [place] [facility] [address] [facility] [id number] [place] [address] Apr, [facility] [place] [facility] [address] [id number] [place] [address] Apr, [facility] [place] [facility] [address] [facility] [id number] [place] [address] Apr, [facility] [place] [facility] [address] [id number] [place] [address] Apr, [facility] [place] [facility] [address] [facility] [id number] [place] [address] Apr, [facility] [place] [facility] [address] [id number] [place] [address] Apr, [facility] [place] [facility] [address] [facility] [id number] [place] [address] March, [facility] [place] [facility] [address] [facility] [id number] [place] [address] March, [facility] [place] [facility] [address] [id number] [place] [address] March, [facility] [place] [facility] [address] [facility] [id number] [place] [address] March, [facility] [place] [facility] [address] [facility] [id number] [place] [address] March, [facility] [place] [facility] [address] [facility] [id number] [place] [address] March, [facility] [place] [facility] [address] [facility] [id number] [place] [address] March, [facility] [place] [facility] [address] [facility] [id number] [place] [address] March, [facility] [place] [facility] [address] [facility] [id number] [place] [address] March, [facility] [place] [facility] [address] [facility] [id number] [place] [address] March, [facility] [place] [facility] [address] [facility] [id number] [place] [address] March, [facility] [place] [facility] [address] [facility] [id number] [place] [address] March, [facility] [place] [facility] [address] [facility] [id number] [place] [address] March, [facility] [place] [facility] [address] [facility] [id number] [place] [address] March, [facility] [place] [facility] [address] [facility] [id number] [place] [address] March, [facility] [place] [facility] [address] [facility] [id number] [place] [address] March, [facility] [place] [facility] [address] [facility] [id number] [place] [address] March, [facility] [place] [facility] [address] [facility] [id number] [place] [address] March, [facility] [place] [facility] [address] [facility] [id number] [place] [address] March, [facility] [place] [facility] [address] [facility] [id number] [place] [address] March, [facility] [place] [facility] [address] [facility] [id number] [place] [address] Feb, [facility] [place] [facility] [address] [facility] [id number] [place] [address] Feb, [facility] [place] [facility] [address] [facility] [id number] [place] [address] Feb, [facility] [place] [facility] [address] [facility] [id number] [place] [address] Feb, [facility] [place] [facility] [address] [facility] [id number] [place] [address] Feb, [facility] [place] [facility] [address] [facility] [id number] [place] [address] Feb, [facility] [place] [facility] [address] [facility] [id number] [place] [address] Feb, [facility] [place] [facility] [address] [facility] [id number] [place] [address] Feb, [facility] [place] [facility] [address] [facility] [id number] [place] [address] Jan, [facility] [place] [facility] [address] [facility] [id number] [place] [address] Jan, [facility] [place] [facility] [address] [facility] [id number] [place] [address] Jan, [facility] [place] [facility] [address] [facility] [id number] [place] [address] 24 Jan, 2014 [facility] [place] [facility] [address] [facility] [id number] [place] [address] Jan, [facility] [place] [facility] [address] [facility] [id number] [place] [address] Jan, [facility] [place] [facility] [address] [facility] [id number] [place] [address] Jan, [facility] [place] [facility] [address] [id number] [place] [address] Jan, [facility] [place] [facility] [address] [id number] [place] [address] Jan, [facility] [place] [facility] [address] [id number] [place] [address] Jan, [facility] [place] [facility] [address] [facility] [id number] [place] [address] 27 Dec, 2013 [facility] [place] [facility] [address] [id number] [place] [address] Dec, [facility] [place] [facility] [address] [id number] [place] [address] Dec, [facility] [place] [facility] [address] [id number] [place] [address] 2013 [facility] [place] [facility] [address] [facility] [id number] [place] [address] 2013 [facility] [place] [facility] [address] [id number] [place] [address] 13 Dec, 2013 [facility] [place] [facility] [address] [id number] [place] [address] 12 Dec, 2013 [facility] [place] [facility] [address] [id number] [place] [address] Dec, [facility] [place] [facility] [address] [facility] [id number] [place] [address] 29 Nov, 2013 [facility] [place] [facility] [address] [facility] [id number] [place] [address] Nov, [facility] [place] [facility] [address] [facility] [id number] [place] [address] Nov, [facility] [place] [facility] [address] [id number] [place] [address] Nov, [facility] [place] [facility] [address] [id number] [place] [address] Nov, [facility] [place] [facility] [address] [id number] [place] [address] Nov, [facility] [place] [facility] [address] [id number] [place] [address] Nov, [facility] [place] [facility] [address] [id number] [place] [address] Nov, [facility] [place] [facility] [address] [id number] [place] [address] Nov, [facility] [place] [facility] [address] [id number] [place] [address] Nov, [facility] [place] [facility] [address] [id number] [place] [address] Nov, [facility] [place] [facility] [address] [id number] [place] [address] Nov, [facility] [place] [facility] [address] [facility] [id number] [place] [address] Nov, [facility] [place] [facility] [address] [id number] [place] [address] Oct, [facility] [place] [facility] [address] [id number] [place] [address] Oct, [facility] [place] [facility] [address] [id number] [place] [address] Oct, [facility] [place] [facility] [address] [id number] [place] [address] Oct, [facility] [address] [facility] [id number] [place] [address] Oct, [facility] [place] [facility] [address] [facility] [id number] [place] [address] Oct, [facility] [place] [facility] [address] [id number] [place] [address] Oct, [facility] [place] [facility] [address] [id number] [place] [address] Oct, [facility] [place] [facility] [address] [id number] [place] [address] Oct, [facility] [place] [facility] [address] [id number] [place] [address] Oct, [facility] [place] [facility] [address] [id number] [place] [address] Oct, [facility] [place] [facility] [address] [id number] [place] [address] Oct, [facility] [place] [facility] [address] [id number] [place] [address] Oct, [facility] [place] [facility] [address] [id number] [place] [address] Oct, [facility] [place] [facility] [address] [id number] [place] [address] 14 Sep, 2013 [facility] [place] [facility] [address] [id number] [place] [address] Sep, [facility] [place] [facility] [address] [id number] [place] [address] 05 Sep, 2013 [facility] [place] [facility] [address] [id number] [place] [address] 05 Sep, 2013 [facility] [place] [facility] [address] [id number] [place] [address] Sep, [facility] [place] [facility] [address] [id number] [place] [address] Sep, [facility] [place] [facility] [address] [id number] [place] [address] Sep, [facility] [place] [facility] [address] [facility] [id number] [place] [address] Sep, [facility] [place] [facility] [address] [id number] [place] [address] Sep, [facility] [place] [facility] [address] [id number] [place] [address] Sep, [facility] [place] [facility] [address] [id number] [place] [address] Aug, [facility] [place] [facility] [address] [facility] [id number] [place] [address] Aug, [facility] [place] [facility] [address] [id number] [place] [address] Aug, [facility] [place] [facility] [address] [id number] [place] [address] Aug, [facility] [place] [facility] [address] [id number] [place] [address] Aug, [facility] [place] [facility] [address] [id number] [place] [address] Aug, [facility] [place] [facility] [address] [id number] [place] [address] Aug, [facility] [place] [facility] [address] [id number] [place] [address] Aug, [facility] [place] [facility] [address] [id number] [place] [address] Aug, [facility] [place] [facility] [address] [facility] [id number] [place] [address] Aug, [facility] [place] [facility] [address] [id number] [place] [address] Aug, [facility] [place] [facility] [address] [id number] [place] [address] Aug, [facility] [place] [facility] [address] [id number] [place] [address] Aug, [facility] [place] [facility] [address] [id number] [place] [address] 18 Aug, 2013 [facility] [place] [facility] [address] [facility] [id number] [place] [address] 17 Aug, 2013 [facility] [place] [facility] [address] [facility] [id number] [place] [address] 14 Aug, 2013 [facility] [place] [facility] [address] [id number] [place] [address] 14 Aug, 2013 [facility] [place] [facility] [address] [facility] [id number] [place] [address] Aug, [facility] [place] [facility] [address] [facility] [id number] [place] [address] 20 Jul, 2013 [facility] [place] [facility] [address] [id number] [place] [address] 19 Jul, 2013 [facility] [place] [facility] [address] [id number] [place] [address] 18 Jul, 2013 [facility] [place] [facility] [address] [id number] [place] [address] Jul, [facility] [place] [facility] [address] [facility] [id number] [place] [address] Jul, [facility] [place] [facility] [address] [id number] [place] [address] 28 Jun, 2013 [facility] [place] [facility] [address] [id number] [place] [address] Jun, [facility] [place] [facility] [address] [id number] [place] [address] 23 Jun, 2013 [facility] [place] [facility] [address] [facility] [id number] [place] [address] 15 Jun, 2013 [facility] [place] [facility] [address] [id number] [place] [address] 14 Jun, 2013 [facility] [place] [facility] [address] [id number] [place] [address] Jun, [facility] [place] [facility] [address] [id number] [place] [address] Jun, [facility] [place] [facility] [address] [id number] [place] [address] Jun, [facility] [address] [facility] [id number] [place] [address] Jun, [facility] [address] [facility] [id number] [place] [address] Jun, [facility] [address] [id number] [place] [address] May, [facility] [address] [facility] [id number] [place] [address] May, [facility] [address] [id number] [place] [address] May, [facility] [address] [id number] [place] [address] May, [facility] [address] [id number] [place] [address] May, [facility] [address] [id number] [place] [address] May, [facility] [address] [id number] [place] [address] May, [facility] [address] [id number] [place] [address] May, [facility] [address] [id number] [place] [address] May, [facility] [address] [facility] [id number] [place] [address] Apr, [facility] [address] [facility] [id number] [place] [address] Apr, [facility] [address] [id number] [place] [address] Apr, [facility] [address] [id number] [place] [address] Apr, [facility] [address] [id number] [place] [address] Apr, [facility] [address] [facility] [id number] [place] [address] Apr, [facility] [address] [id number] [place] [address] Apr, [facility] [address] [id number] [place] [address] March, [facility] [address] [id number] [place] [address] Feb, [facility] [address] [id number] [place] [address] Feb, [facility] [address] [id number] [place] [address] Feb, [facility] [address] [id number] [place] [address] Jan, [facility] [address] [id number] [place] [address] Jan, [facility] [address] [id number] [place] [address] Jan, [facility] [address] [id number] [place] [address] Jan, [facility] [address] [id number] [place] [address] Jan, [facility] [address] [id number] [place] [address] Jan, [facility] [address] [id number] [place] [address] Jan, [facility] [address] [id number] [place] [address] Jan, [facility] [address] [id number] [place] [address] Dec, [facility] [address] [id number] [place] [address] Dec, [facility] [address] [id number] [place] [address] 13 Dec, 2012 [facility] [address] [id number] [place] [address] Dec, [facility] [address] [id number] [place] [address] 07 Dec, 2012 [facility] [address] [id number] [place] [address] Dec, [facility] [address] [id number] [place] [address] Dec, [facility] [address] [id number] [place] [address] Nov, [facility] [address] [id number] [place] [address] Nov, [facility] [id number] [place] [address] Nov, [facility] [address] [id number] [place] [address] Nov, [facility] [id number] [place] [address] Nov, [facility] [address] [id number] [place] [address] Nov, [facility] [address] [id number] [place] [address] Nov, [facility] [address] [id number] [place] [address] Oct, [facility] [address] [id number] [place] [address] Oct, [facility] [address] [id number] [place] [address] Oct, [facility] [address] [id number] [place] [address] Oct, [facility] [address] [id number] [place] [address] Oct, [facility] [address] [id number] [place] [address] Oct, [facility] [address] [id number] [place] [address] Oct, [facility] [address] [id number] [place] [address] Oct, [facility] [address] [id number] [place] [address] Oct, [facility] [address] [id number] [place] [address] Oct, [facility] [address] [id number] [place] [address] Oct, [facility] [address] [id number] [place] [address] Oct, [facility] [address] [id number] [place] [address] Sep, [facility] [address] [id number] [place] [address] Sep, [facility] [address] [id number] [place] [address] Sep, [facility] [address] [id number] [place] [address] Sep, [facility] [address] [id number] [place] [address] Sep, [facility] [address] [id number] [place] [address] Sep, [facility] [address] [id number] [place] [address] Sep, [facility] [address] [id number] [place] [address] Sep, [facility] [address] [id number] [place] [address] Sep, [facility] [address] [id number] [place] [address] Sep, [facility] [address] [id number] [place] [address] Sep, [facility] [address] [id number] [place] [address] Aug, [facility] [address] [id number] [place] [address] Aug, [facility] [address] [id number] [place] [address] Aug, [facility] [address] [id number] [place] [address] Aug, [facility] [address] [id number] [place] [address] Aug, [facility] [address] [id number] [place] [address] Aug, [facility] [address] [id number] [place] [address] Aug, [facility] [address] [id number] [place] [address] Aug, [facility] [address] [id number] [place] [address] Aug, [facility] [address] [id number] [place] [address] Aug, [facility] [address] [id number] [place] [address] Jul, [facility] [address] [id number] [place] [address] 20 Jul, 2012 [facility] [address] [id number] [place] [address] Jul, [facility] [address] [id number] [place] [address] 06 Jul, 2012 [facility] [address] [id number] [place] [address] Jun, [facility] [id number] [place] [address] Jun, [facility] [address] [id number] [place] [address] Jun, [facility] [address] [id number] [place] [address] Jun, [facility] [address] [id number] [place] [address] Jun, [facility] [address] [id number] [place] [address] Jun, [facility] [address] [id number] [place] [address] Jun, [facility] [address] [id number] [place] [address] May, [facility] [address] [id number] [place] [address] May, [facility] [address] [id number] [place] [address] May, [facility] [address] [id number] [place] [address] May, [facility] [address] [id number] [place] [address] May, [facility] [address] [id number] [place] [address] Apr, [facility] [address] [id number] [place] [address] Apr, [facility] [address] [id number] [place] [address] Apr, [facility] [address] [id number] [place] [address] Apr, [facility] [address] [id number] [place] [address] Apr, [facility] [address] [id number] [place] [address] March, [facility] [address] [id number] [place] [address] March, [facility] [address] [id number] [place] [address] March, [facility] [address] [id number] [place] [address] March, [facility] [address] [id number] [place] [address] March, [facility] [address] [id number] [place] [address] March, [facility] [address] [id number] [place] [address] March, [facility] [address] [id number] [place] [address] March, [facility] [address] [id number] [place] [address] March, [facility] [address] [id number] [place] [address] March, [facility] [address] [id number] [place] [address] 30 Feb, 2012 [facility] [address] [id number] [place] [address] Feb, [facility] [address] [id number] [place] [address] Feb, [facility] [address] [id number] [place] [address] Feb, [facility] [address] [id number] [place] [address] Feb, [facility] [address] [id number] [place] [address] Feb, [facility] [address] [id number] [place] [address] Feb, [facility] [address] [id number] [place] [address] Feb, [facility] [address] [id number] [place] [address] Feb, [facility] [address] [id number] [place] [address] 08 Jan, 2012 [facility] [address] [id number] [place] [address] Jan, [facility] [address] [id number] [place] [address] Jan, [facility] [address] [id number] [place] [address] Jan, [facility] [address] [id number] [place] [address] Dec, [facility] [address] [id number] [place] [address] Dec, [facility] [address] [id number] [place] [address] Nov, [facility] [address] [id number] [place] [address] Nov, [facility] [address] [id number] [place] [address] Nov, [facility] [address] [id number] [place] [address] Nov, [facility] [address] [id number] [place] [address] Nov, [facility] [address] [id number] [place] [address] Oct, [facility] [address] [id number] [place] [address] Oct, [facility] [address] [id number] [place] [address] Oct, [facility] [address] [id number] [place] [address] Oct, [facility] [address] [id number] [place] [address] Oct, [facility] [address] [id number] [place] [address] Oct, [facility] [address] [id number] [place] [address] Oct, [facility] [address] [id number] [place] [address] Oct, [facility] [address] [id number] [place] [address] Sep, IMMUNIZATIONS No Known Immunizations SOCIAL HISTORY [...] History No Surgical history information Hospitalization History [facility], [place], operated by [facility]- Urosepsis, ab d pain and fever, discharged 11/27/2017 11/26/2017 Hospitalization History [facility] [place]- Went Unrepsonsive, Hit head 2017 Hospitalization History [facility] [place]- Back Pain 8
--- OUTSIDE RECORDS SUMMARY | 2020-06-18 15:06 | XMS REPORT ---
Author Author Sanjuanita Abdul Doctor Organization [facility] Address Unknown Phone Unavailable Care Team Providers Care Blind Hooker Name Role Phone Migration, Doctor Unavailable Unavailable PROBLEMS Type Condition ICD9-CM Code ACF35-FP Code Onset Dates Condition S tatus SNOMED Code Problem Coronary artery disease I25.10 Active 69407244 Problem Hypertension I10 Active 7261966 3 Problem Other chronic pain G89.29 Active 8 7793581 Problem Hyperlipidemia E78.5 Active 96995 004 Problem Type 2 diabetes mellitus wit hout complication, without long-term current use of insulin E11.9 Active 136270577 Problem Low back pain M54.5 Active 713225 009 Problem Pharyngeal dysphagia R13.13 Active 48134041659725 Problem Anxiety F41.9 Active 28422892 Problem Peripheral vascular disease I73.9 Ac tive 593511882 Problem Suprapubic catheter Z93.59 Active 579565587 Problem Reactive depression F32.9 Active 20138632 Problem Neurogenic bladder N31.9 Active 3 06241865 Problem Ventral hernia without obstruction or gangrene K43 .9 Active 220899024 Problem Insomnia G47.00 Active 873487720 Problem Paroxysmal atrial fibrillation I48.0 Active 676395823 Problem Postmenopausal atrophic vaginitis 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 Active 05848006 Problem Encounter for suprapubic catheter care Z43.5 Active [id number] ALLERGIES No Information ENCOUNTERS Encounter Location Date Diagnosis [place] [address] [id number] [place] [address] Nov, Hypertension I10 Via [facility] [address] [place] [id number] Nov, Pneumonia of both lungs due to infectiou s organism, unspecified part of lung J18.9 and Suprapubic catheter Z93.59 [place] [address] [id number] [place] [address] Nov, Hypertension I10 and Reactive depression F32.9 [place] [address] [id number] [place] [address] Oct, Strain of right shoulder, subsequent enc ounter S46.911D and Anxiety F41.9 [place] [address] [id number] [place] [address] Oct, Via [facility] [address] [place] [id number] Oct, Suprapubic catheter Z93.59 and Candidias is, intertriginous B37.2 [place] [address] [id number] [place] [address] Oct, Suprapubic catheter Z93.59 [place] [address] [id number] [place] [address] Oct, Anxiety F41.9 and Strain of right should er, subsequent encounter S46.911D [place] [address] [id number] [place] [address] Sep, [place] [address] [id number] [place] [address] Sep, [place] [address] [id number] [place] [address] Sep, Via [facility] [address] [place] [id number] Sep, Suprapubic catheter Z93.59 [place] [address] [id number] [place] [address] Sep, Anxiety F41.9 and Strain of right should er, subsequent encounter S46.911D [place] [address] [id number] [place] [address] Aug, [facility] [address] [id number] [place] [address] Aug, [facility] [address] [id number] [place] [address] Aug, Anxiety F41.9 and Strain of right should er, subsequent encounter S46.911D [facility] [address] [place] [id number] Aug, Suprapubic catheter Z93.59 [place] [address] [address] Jul, Strain of right shoulder, subsequent enc ounter S46.911D and Anxiety F41.9 [place] [address] [address] Jul, Anxiety F41.9 [place] [address] [address] Jun, [place] [address] [address] Jun, [place] [address] [address] Jun, [place] [address] [address] Jun, Strain of right shoulder, subsequent enc ounter S46.911D [place] [address] [address] Jun, Strain of right shoulder, subsequent enc ounter S46.911D [place] [address] [address] Jun, Anxiety F41.9 Via [facility] [address] [place] [id number] Jun, Neurogenic bladder N31.9 and Anxiety F41 .9 Via [facility] [address] [place] [id number] May, Anxiety F41.9 [place] [address] [address] May, Dysuria R30.0 [place] [address] [address] May, Strain of right shoulder, subsequent enc ounter S46.911D and Anxiety F41.9 [place] [address] [address] 27 Apr, 2019 Via [facility] [address] [place] [id number] 18 Apr, 2019 Strain of right shoulder, subsequent enc ounter S46.911D [place] [address] [address] 14 Apr, 2019 Strain of right shoulder, subsequent enc ounter S46.911D and Anxiety F41.9 Via [facility] [address] [place] [id number] 13 Apr, 2019 Type 2 diabetes mellitus without complic ation, without long-term current use of insulin E11.9 and Neurogenic bladder N31.9 [facility] [address] [place] [id number] 11 Apr, 2019 Strain of right shoulder, subsequent enc ounter S46.911D ; History of GI bleed Z87.19 ; Neurogenic bladder N31.9 and Reactive depression F32.9 [place] [address] [address] 10 Apr, 2019 Acute pain of left shoulder M25.512 [place] [address] [address] 07 Apr, 2019 [place] [address] [address] 06 Apr, 2019 Anxiety F41.9 and Other chronic pain G89 .29 Via [facility] [address] [place] [id number] March, Gastrointestinal hemorrhage associated w ith acute gastritis K29.01 [place] [address] [address] March, [facility] [address] [place] [id number] March, Bronchitis J40 [place] [address] [address] March, Cough R05 [place] [address] [address] March, Other chronic pain G89.29 [facility] [address] [address] March, Anxiety F41.9 [facility] [address] [address] March, [facility] [address] [address] Feb, Other chronic pain G89.29 [facility] [address] [address] Feb, Anxiety F41.9 [facility] [address] [address] Feb, Other chronic pain G89.29 Via [facility] [address] [place] [id number] Feb, Neurogenic bladder N31.9 and Suprapubic catheter Z93.59 [facility] [address] [address] Jan, Anxiety F41.9 [facility] [address] [address] Dec, Anxiety F41.9 [facility] [address] [address] Dec, Other chronic pain G89.29 and Anxiety F4 1.9 [facility] [address] [address] Dec, Via [facility] [address] [place] [id number] Dec, Neurogenic bladder N31.9 and Suprapubic catheter Z93.59 [facility] [address] [address] Nov, Other chronic pain G89.29 and Anxiety F4 1.9 [facility] [address] [address] Nov, Via [facility] [address] [place] [id number] Nov, Suprapubic catheter Z93.59 [facility] [address] [address] Oct, Other chronic pain G89.29 and Anxiety F4 1.9 [facility] [address] [address] Oct, [facility] [address] [address] Oct, Suprapubic catheter Z93.59 [place] [address] [address] Oct, Via [facility] [address] [place] [id number] Oct, [place] [address] [address] Oct, Anxiety F41.9 [place] [address] [address] Oct, Anxiety F41.9 Via [facility] [address] [place] [id number] Oct, Other chronic pain G89.29 [place] [address] [address] Sep, Other chronic pain G89.29 Via [facility] [address] [place] [id number] Sep, Suprapubic catheter Z93.59 and Cervicalg ia M54.2 [facility] [address] [address] Sep, [facility] [address] [address] Sep, [place] [address] [address] Sep, Via [facility] [address] [place] [id number] Aug, Cystitis N30.90 [place] [address] [address] Aug, [place] [address] [address] Aug, Other chronic pain G89.29 [place] [address] [address] Aug, Via [facility] [address] [place] [id number] Aug, Encounter for suprapubic catheter care Z 43.5 [place] [address] [address] Jul, Via [facility] [address] [place] [id number] Jul, [place] [address] [address] Jul, Other chronic pain G89.29 [place] [address] [address] Jul, [place] [address] [address] Jul, [facility] [address] [place] [id number] Jun, Postmenopausal atrophic vaginitis N95.2 [place] [address] [address] Jun, Other chronic pain G89.29 [place] [address] [address] Jun, [facility] [address] [place] [id number] May, Anxiety F41.9 ; Type 2 diabetes mellitus without complication, without long-term current use of insulin E11.9 ; Hypertension I10 ; Low back pain M54.5 ; Paroxysmal atrial fibrillation I48.0 and 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 [place] [address] [address] May, Other chronic pain G89.29 Via [facility] [address] [place] [id number] May, Low back pain M54.5 [facility] [address] [address] May, [facility] [address] [address] Apr, Other chronic pain G89.29 [facility] [address] [address] Apr, [facility] [address] [address] Apr, [facility] [address] [place] [id number] Apr, Closed compression fracture of L3 lumbar vertebra with routine healing, subsequent encounter S32.030D [facility] [address] [place] [id number] Apr, Low back pain M54.5 Via [facility] [address] [place] [id number] Apr, Coccydynia M53.3 [facility] [address] [address] March, [facility] [address] [address] March, Other chronic pain G89.29 [facility] [address] [address] March, [facility] [address] [address] March, [facility] [address] [address] Feb, [facility] [address] [address] Feb, Other chronic pain G89.29 [facility] [address] [place] [id number] Feb, Other chronic pain G89.29 and Anxiety F4 1.9 [place] [address] [place] [id number] [place] [address] Feb, [place] [address] [address] Jan, [place] [address] [address] Jan, [place] [address] [address] Jan, [place] [address] [address] Jan, [place] [address] [address] Dec, Via [facility] [facility] [address] [place] [id number] Dec, Peripheral vascular disease I73.9 ; 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 ; Other chronic pain G89.29 ; Anxiety F41.9 ; Reactive depression F32.9 ; Insomnia G47.00 and Type 2 diabetes mellitus without complication, without long-term current use of insulin E11.[address] [id number] [place] [address] Nov, [place] [address] [id number] [place] [id number] Nov, Anxiety F41.9 [place] [address] [address] Nov, [place] [address] [id number] [place] [id number] Nov, Anxiety F41.9 Via [facility] [address] [place] [id number] Nov, Status post surgery Z98.890 ; Confused R 41.0 ; Anxiety F41.9 and Other chronic pain G89.29 [place] [address] [id number] [place] [id number] Nov, Other chronic pain G89.29 [facility] [address] [place] [id number] [place] [address] Oct, [facility] [address] [id number] [place] [id number] Oct, Other chronic pain G89.29 [facility] [address] [address] Oct, Anxiety F41.9 [facility] [address] [id number] [place] [id number] Sep, Other chronic pain G89.29 [facility] [address] [id number] [place] [id number] Sep, Via [facility] [address] [place] [id number] Aug, Dysuria R30.0 and Anxiety F41.9 [facility] [address] [place] [id number] [place] [address] Aug, [facility] [address] [id number] [place] [id number] Aug, Other chronic pain G89.29 [facility] [address] [place] [id number] [place] [address] Jul, Other chronic pain G89.29 [facility] [address] [id number] [place] [id number] Jun, [facility] [address] [id number] [place] [id number] Jun, Other chronic pain G89.29 [facility] [address] [address] Jun, [facility] [address] [address] May, Other chronic pain G89.29 [facility] [address] [address] Apr, Other chronic pain G89.29 [facility] [address] [place] [id number] Apr, Reactive depression F32.9 and Pharyngeal dysphagia R13.13 [place] [address] [address] Apr, Urinary tract infection without hematuri a, site unspecified N39.0 [place] [address] [address] March, Other chronic pain G89.29 [place] [address] [address] Feb, Other chronic pain G89.29 [place] [address] [address] Feb, [place] [address] [id number] [place] [id number] Feb, Via [facility] [address] [place] [id number] Feb, Dysuria R30.0 and Ventral hernia without obstruction or gangrene K43.9 [place] [address] [address] Jan, Other chronic pain G89.29 [place] [address] [id number] [place] [id number] Dec, Other chronic pain G89.29 [place] [address] [address] Nov, Other chronic pain G89.29 [facility] [address] [place] [id number] Nov, Lymphadenitis I88.9 [place] [address] [address] Nov, Other chronic pain G89.29 [place] [address] [address] Nov, [facility] [address] [id number] [place] [id number] Nov, Other chronic pain G89.29 Via [facility] [address] [place] [id number] Oct, Low back pain M54.5 ; Hypertension I10 a nd Type 2 diabetes mellitus without complication, without long-term current use of insulin E11.9 [facility] [address] [id number] [place] [address] Oct, [facility] [address] [place] [id number] [place] [address] Oct, [facility] [address] [address] Oct, [facility] [address] [place] [address] [id number] [place] [address] Oct, [facility] [address] [address] Sep, [facility] [address] [place] [id number] [place] [address] Sep, [facility] [id number] [place] [address] Aug, Other chronic pain G89.29 [facility] [id number] [place] [address] Jul, [facility] [address] [id number] [place] [address] Jul, [facility] [address] [place] [id number] [place] [address] Jul, [facility] [address] [address] Jun, [facility] [address] [address] [place] [address] Jun, [facility] [address] [place] [id number] Jun, Low back pain M54.5 ; Other chronic pain G89.29 and Coronary artery disease I25.10 [facility] [id number] [place] [address] Jun, [facility] [address] [facility] [place] [address] May, [facility] [address] [place] [id number] [place] [address] May, [facility] [address] [address] May, Other chronic pain G89.29 [facility] [id number] [place] [address] May, [facility] [id number] [place] [address] Apr, [facility] [address] [address] Apr, Acute cystitis without hematuria N30.00 [facility] [address] [id number] [place] [address] 16 Apr, 2016 Acute cystitis without hematuria N30.00 ; Coronary artery disease I25.10 ; Low back pain M54.5 and Other chronic pain G89.29 [facility] [id number] [place] [address] Apr, Other chronic pain G89.29 [facility] [id number] [place] [address] March, Other chronic pain G89.29 [facility] [id number] [place] [address] Feb, [facility] [address] [address] Feb, Arthritis M19.90 [facility] [address] [id number] [place] [address] Feb, [facility] [address] [address] Jan, [facility] [address] [address] Jan, [facility] [address] [address] Jan, Other chronic pain G89.29 [facility] [address] [address] Jan, Hypertension I10 ; Coronary artery disea se I25.10 and Insomnia G47.00 [facility] [address] [address] Jan, [facility] [address] [address] Dec, Right hip pain M25.551 [facility] [address] [address] Dec, [facility] [address] [address] Dec, [facility] [address] [address] Dec, [facility] [address] [address] Dec, Other chronic pain G89.29 [facility] [address] [address] Dec, [facility] [address] [address] Nov, [facility] [address] [address] Nov, Other chronic pain G89.29 [facility] [address] [address] Nov, Right hip pain M25.551 and Coronary karissa ry disease I25.10 [facility] [address] [address] Nov, Other chronic pain G89.29 [facility] [address] [address] Oct, [facility] [address] [address] Oct, [facility] [address] [address] Sep, [facility] [address] [address] Sep, [facility] [address] [address] Aug, [facility] [address] [address] Aug, Hypertension I10 ; Coronary artery disea se I25.10 and Arthritis M19.90 [facility] [address] [address] Jun, [facility] [address] [address] Jun, Essential hypertension, benign 401.1 ; O ther chronic pain 338.29 and Chronic airway obstruction, not elsewhere classified 496 [facility] [address] [address] Jun, [facility] [address] [address] Jun, [facility] [address] [address] Jun, [facility] [address] [address] May, [facility] [address] [address] May, [facility] [address] [address] Apr, [facility] [address] [address] Apr, [facility] [address] [id number] [place] [address] Apr, [facility] [address] [id number] [place] [address] March, [facility] [address] [id number] [place] [address] March, [facility] [address] [id number] [place] [address] March, [facility] [address] [id number] [place] [address] March, [facility] [address] [id number] [place] [address] March, Sialadenitis 527.2 [facility] [address] [id number] [place] [address] Feb, [facility] [address] [id number] [place] [address] Feb, [facility] [address] [id number] [place] [address] Feb, [facility] [address] [id number] [place] [address] Feb, [facility] [address] [id number] [place] [address] Feb, [facility] [address] [id number] [place] [address] Jan, [facility] [address] [id number] [place] [address] Jan, [facility] [address] [id number] [place] [address] Jan, [facility] [address] [id number] [place] [address] Jan[facility] [address] [id number] [place] [address] 06 Jan[facility] 2015 [facility] [address] [id number] [place] [address] Jan, [facility] [address] [id number] [place] [address] Dec, [facility] [address] [id number] [place] [address] Dec, [facility] [address] [id number] [place] [address] Dec, [facility] [address] [id number] [place] [address] Dec, [facility] [address] [id number] [place] [address] Dec, [facility] [address] [id number] [place] [address] Dec, [facility] [address] [id number] [place] [address] Nov, [facility] [address] [id number] [place] [address] Nov, [facility] [address] [facility] [id number] [place] [address] Nov, [facility] [place] [facility] [address] [id number] [place] [address] Nov, [facility] [place] [facility] [address] [id number] [place] [address] Nov, [facility] [place] [facility] [address] [id number] [place] [address] Nov, [facility] [place] [facility] [address] [id number] [place] [address] Nov, [facility] [place] [facility] [address] [id number] [place] [address] Nov, [facility] [place] [facility] [address] [id number] [place] [address] Nov, [facility] [place] [facility] [address] [id number] [place] [address] Nov, [facility] [place] [facility] [address] [id number] [place] [address] Nov, [facility] [place] [facility] [address] [id number] [place] [address] Nov, [facility] [place] [facility] [address] [id number] [place] [address] Nov, [facility] [place] [facility] [address] [id number] [place] [address] Nov, [facility] [place] [facility] [address] [id number] [place] [address] Oct, [facility] [place] [facility] [address] [id number] [place] [address] Oct, [facility] [place] [facility] [address] [id number] [place] [address] Oct, [facility] [place] [facility] [address] [id number] [place] [address] Oct, [facility] [place] [facility] [address] [id number] [place] [address] Oct, [facility] [place] [facility] [address] [id number] [place] [address] Oct, [facility] [place] [facility] [address] [id number] [place] [address] Oct, [facility] [place] [facility] [address] [id number] [place] [address] Oct, [facility] [place] [facility] [address] [id number] [place] [address] Oct, [facility] [place] [facility] [address] [id number] [place] [address] Sep, [facility] [place] [facility] [address] [id number] [place] [address] Sep, [facility] [place] [facility] [address] [id number] [place] [address] Sep, [facility] [place] [facility] [address] [id number] [place] [address] Sep, [facility] [place] [facility] [address] [facility] [id number] [place] [address] Sep, [facility] [place] [facility] [address] [id number] [place] [address] Sep, [facility] [place] [facility] [address] [id number] [place] [address] Sep, [facility] [place] [facility] [address] [id number] [place] [address] Sep, [facility] [place] [facility] [address] [facility] [id number] [place] [address] Sep, [facility] [place] [facility] [address] [id number] [place] [address] Sep, [facility] [place] [facility] [address] [id number] [place] [address] Sep, [facility] [place] [facility] [address] [id number] [place] [address] Sep, [facility] [place] [facility] [address] [id number] [place] [address] Aug, [facility] [place] [facility] [address] [id number] [place] [address] Aug, [facility] [place] [facility] [address] [id number] [place] [address] Aug, [facility] [place] [facility] [address] [id number] [place] [address] Aug, [facility] [place] [facility] [address] [id number] [place] [address] Aug, [facility] [place] [facility] [address] [id number] [place] [address] Aug, [facility] [place] [facility] [address] [id number] [place] [address] Aug, [facility] [place] [facility] [address] [id number] [place] [address] Aug, [facility] [place] [facility] [address] [id number] [place] [address] 30 Jul, 2013 [facility] [place] [facility] [address] [id number] [place] [address] 30 Jul, 2013 [facility] [place] [facility] [address] [facility] [id number] [place] [address] 30 Jul, 2013 [facility] [place] [facility] [address] [id number] [place] [address] 30 Jul, 2013 [facility] [place] [facility] [address] [facility] [id number] [place] [address] 25 Jul, 2013 [facility] [place] [facility] [address] [id number] [place] [address] 25 Jul, 2013 [facility] [place] [facility] [address] [id number] [place] [address] 15 Jul, 2014 [facility] [place] [facility] [address] [id number] [place] [address] 15 Jul, 2014 [facility] [place] [facility] [address] [id number] [place] [address] Jul, [facility] [place] [facility] [address] [id number] [place] [address] Jul, [facility] [place] [facility] [address] [id number] [place] [address] Jun, [facility] [place] [facility] [address] [id number] [place] [address] Jun, [facility] [place] [facility] [address] [id number] [place] [address] Jun, [facility] [place] [facility] [address] [id number] [place] [address] Jun, [facility] [place] [facility] [address] [id number] [place] [address] Jun, [facility] [place] [facility] [address] [id number] [place] [address] Jun, [facility] [place] [facility] [address] [id number] [place] [address] Jun, [facility] [place] [facility] [address] [id number] [place] [address] Jun, [facility] [place] [facility] [address] [id number] [place] [address] Jun, [facility] [place] [facility] [address] [facility] [id number] [place] [address] Jun, [facility] [place] [facility] [address] [id number] [place] [address] Jun, [facility] [place] [facility] [address] [facility] [id number] [place] [address] Jun, [facility] [place] [facility] [address] [id number] [place] [address] Jun, [facility] [place] [facility] [address] [id number] [place] [address] Jun, [facility] [place] [facility] [address] [id number] [place] [address] Jun, [facility] [place] [facility] [address] [id number] [place] [address] Jun, [facility] [place] [facility] [address] [id number] [place] [address] Jun, [facility] [place] [facility] [address] [id number] [place] [address] Jun, [facility] [place] [facility] [address] [id number] [place] [address] Jun, [facility] [place] [facility] [address] [id number] [place] [address] Jun, [facility] [place] [facility] [address] [id number] [place] [address] Jun, [facility] [place] [facility] [address] [id number] [place] [address] Jun, [facility] [place] [facility] [address] [id number] [place] [address] May, [facility] [place] [facility] [address] [id number] [place] [address] May, 2013 [facility] [place] [facility] [address] [id number] [place] [address] May, 2013 [facility] [place] [facility] [address] [id number] [place] [address] May, [facility] [place] [facility] [address] [facility] [id number] [place] [address] May, 2013 [facility] [place] [facility] [address] [id number] [place] [address] May, 2013 [facility] [place] [facility] [address] [facility] [id number] [place] [address] May, 2013 [facility] [place] [facility] [address] [id number] [place] [address] May, 2013 [facility] [place] [facility] [address] [facility] [id number] [place] [address] May, 2013 [facility] [place] [facility] [address] [id number] [place] [address] May, [facility] [place] [facility] [address] [facility] [id number] [place] [address] May, [facility] [place] [facility] [address] [facility] [id number] [place] [address] May, [facility] [place] [facility] [address] [facility] [id number] [place] [address] May, [facility] [place] [facility] [address] [id number] [place] [address] Apr, [facility] [place] [facility] [address] [facility] [id number] [place] [address] Apr, [facility] [place] [facility] [address] [id number] [place] [address] Apr, [facility] [place] [facility] [address] [facility] [id number] [place] [address] Apr, [facility] [place] [facility] [address] [id number] [place] [address] Apr, [facility] [place] [facility] [address] [facility] [id number] [place] [address] Apr, [facility] [place] [facility] [address] [id number] [place] [address] Apr, [facility] [place] [facility] [address] [facility] [id number] [place] [address] Apr, [facility] [place] [facility] [address] [id number] [place] [address] Apr, [facility] [place] [facility] [address] [id number] [place] [address] March, [facility] [place] [facility] [address] [facility] [id number] [place] [address] March, [facility] [place] [facility] [address] [id number] [place] [address] March, [facility] [place] [facility] [address] [id number] [place] [address] March, [facility] [place] [facility] [address] [id number] [place] [address] March, [facility] [place] [facility] [address] [id number] [place] [address] March, [facility] [place] [facility] [address] [id number] [place] [address] March, [facility] [place] [facility] [address] [id number] [place] [address] March, [facility] [place] [facility] [address] [id number] [place] [address] March, [facility] [place] [facility] [address] [facility] [id number] [place] [address] March, [facility] [place] [facility] [address] [id number] [place] [address] March, [facility] [place] [facility] [address] [id number] [place] [address] March, [facility] [place] [facility] [address] [id number] [place] [address] March, [facility] [place] [facility] [address] [id number] [place] [address] March, [facility] [place] [facility] [address] [id number] [place] [address] March, [facility] [place] [facility] [address] [id number] [place] [address] March, [facility] [place] [facility] [address] [id number] [place] [address] March, [facility] [place] [facility] [address] [id number] [place] [address] March, [facility] [place] [facility] [address] [id number] [place] [address] March, [facility] [place] [facility] [address] [id number] [place] [address] March, [facility] [place] [facility] [address] [id number] [place] [address] Feb, [facility] [place] [facility] [address] [id number] [place] [address] Feb, [facility] [place] [facility] [address] [id number] [place] [address] Feb, [facility] [place] [facility] [address] [id number] [place] [address] Feb, [facility] [place] [facility] [address] [id number] [place] [address] Feb, [facility] [place] [facility] [address] [id number] [place] [address] Feb, [facility] [place] [facility] [address] [id number] [place] [address] Feb, [facility] [place] [facility] [address] [id number] [place] [address] Feb, [facility] [place] [facility] [address] [id number] [place] [address] Jan, [facility] [place] [facility] [address] [id number] [place] [address] Jan, [facility] [place] [facility] [address] [facility] [id number] [place] [address] Jan, [facility] [place] [facility] [address] [facility] [id number] [place] [address] 24 Jan, 2014 [facility] [place] [facility] [address] [facility] [id number] [place] [address] Jan, [facility] [place] [facility] [address] [facility] [id number] [place] [address] Jan, [facility] [place] [facility] [address] [facility] [id number] [place] [address] Jan, [facility] [place] [facility] [address] [id number] [place] [address] Jan, [facility] [place] [facility] [address] [id number] [place] [address] Jan, [facility] [place] [facility] [address] [id number] [place] [address] Jan, [facility] [place] [facility] [address] [facility] [id number] [place] [address] 27 Dec, 2013 [facility] [place] [facility] [address] [id number] [place] [address] Dec, [facility] [place] [facility] [address] [id number] [place] [address] Dec, [facility] [place] [facility] [address] [id number] [place] [address] 2013 [facility] [place] [facility] [address] [facility] [id number] [place] [address] 2013 [facility] [place] [facility] [address] [id number] [place] [address] 13 Dec, 2013 [facility] [place] [facility] [address] [id number] [place] [address] 12 Dec, 2013 [facility] [place] [facility] [address] [id number] [place] [address] Dec, [facility] [place] [facility] [address] [id number] [place] [address] 29 Nov, 2013 [facility] [place] [facility] [address] [id number] [place] [address] Nov, [facility] [place] [facility] [address] [id number] [place] [address] Nov, [facility] [place] [facility] [address] [id number] [place] [address] Nov, [facility] [place] [facility] [address] [id number] [place] [address] Nov, [facility] [place] [facility] [address] [id number] [place] [address] Nov, [facility] [place] [facility] [address] [id number] [place] [address] Nov, [facility] [place] [facility] [address] [id number] [place] [address] Nov, [facility] [place] [facility] [address] [id number] [place] [address] Nov, [facility] [place] [facility] [address] [id number] [place] [address] Nov, [facility] [place] [facility] [address] [id number] [place] [address] Nov, [facility] [place] [facility] [address] [id number] [place] [address] Nov, [facility] [place] [facility] [address] [id number] [place] [address] Nov, [facility] [place] [facility] [address] [id number] [place] [address] Oct, [facility] [place] [facility] [address] [id number] [place] [address] Oct, [facility] [place] [facility] [address] [id number] [place] [address] Oct, [facility] [place] [facility] [address] [id number] [place] [address] Oct, [facility] [address] [id number] [place] [address] Oct, [facility] [place] [facility] [address] [id number] [place] [address] Oct, [facility] [place] [facility] [address] [id number] [place] [address] Oct, [facility] [place] [facility] [address] [id number] [place] [address] Oct, [facility] [address] [id number] [place] [address] Oct, [facility] [address] [id number] [place] [address] Oct, [facility] [address] [id number] [place] [address] Oct, [facility] [address] [id number] [place] [address] Oct, [facility] [address] [id number] [place] [address] Oct, [facility] [address] [id number] [place] [address] Oct, [facility] [address] [id number] [place] [address] 14 Sep, 2013 [facility] [address] [id number] [place] [address] Sep, [facility] [address] [id number] [place] [address] 05 Sep, 2013 [facility] [address] [id number] [place] [address] 05 Sep, 2013 [facility] [address] [id number] [place] [address] Sep, [facility] [address] [id number] [place] [address] Sep, [facility] [address] [id number] [place] [address] Sep, [facility] [address] [facility] [id number] [place] [address] Sep, [facility] [address] [id number] [place] [address] Sep, [facility] [address] [id number] [place] [address] Sep, [facility] [address] [id number] [place] [address] Aug, [facility] [address] [facility] [id number] [place] [address] Aug, [facility] [address] [id number] [place] [address] Aug, [facility] [address] [id number] [place] [address] Aug, [facility] [address] [id number] [place] [address] Aug, [facility] [address] [id number] [place] [address] Aug, [facility] [address] [id number] [place] [address] Aug, [facility] [address] [id number] [place] [address] Aug, [facility] [address] [id number] [place] [address] Aug, [facility] [address] [facility] [id number] [place] [address] Aug, [facility] [address] [id number] [place] [address] Aug, [facility] [address] [id number] [place] [address] Aug, [facility] [address] [id number] [place] [address] Aug, [facility] [address] [id number] [place] [address] 18 Aug, 2013 [facility] [address] [facility] [id number] [place] [address] 17 Aug, 2013 [facility] [address] [facility] [id number] [place] [address] 14 Aug, 2013 [facility] [address] [id number] [place] [address] 14 Aug, 2013 [facility] [address] [facility] [id number] [place] [address] Aug, [facility] [address] [facility] [id number] [place] [address] 20 Jul, 2013 [facility] [address] [id number] [place] [address] 19 Jul, 2013 [facility] [address] [id number] [place] [address] 18 Jul, 2013 [facility] [address] [id number] [place] [address] Jul, [facility] [address] [facility] [id number] [place] [address] Jul, [facility] [address] [id number] [place] [address] 28 Jun, 2013 [facility] [address] [id number] [place] [address] Jun, [facility] [address] [id number] [place] [address] 23 Jun, 2013 [facility] [address] [facility] [id number] [place] [address] 15 Jun, 2013 [facility] [address] [id number] [place] [address] 14 Jun, 2013 [facility] [address] [id number] [place] [address] Jun, [facility] [address] [id number] [place] [address] Jun, [facility] [address] [id number] [place] [address] Jun, [facility] [address] [facility] [id number] [place] [address] Jun, [facility] [address] [facility] [id number] [place] [address] Jun, [facility] [address] [id number] [place] [address] May, [facility] [address] [facility] [id number] [place] [address] May, [facility] [address] [id number] [place] [address] May, [facility] [address] [id number] [place] [address] May, [facility] [address] [id number] [place] [address] May, [facility] [address] [id number] [place] [address] May, [facility] [address] [id number] [place] [address] May, [facility] [address] [id number] [place] [address] May, [facility] [address] [id number] [place] [address] May, [facility] [address] [facility] [id number] [place] [address] Apr, [facility] [address] [facility] [id number] [place] [address] Apr, [facility] [address] [id number] [place] [address] Apr, [facility] [address] [id number] [place] [address] Apr, [facility] [address] [id number] [place] [address] Apr, [facility] [address] [facility] [id number] [place] [address] Apr, [facility] [address] [id number] [place] [address] Apr, [facility] [address] [id number] [place] [address] March, [facility] [address] [id number] [place] [address] Feb, [facility] [address] [id number] [place] [address] Feb, [facility] [address] [id number] [place] [address] Feb, [facility] [address] [id number] [place] [address] Jan, [facility] [address] [id number] [place] [address] Jan, [facility] [address] [id number] [place] [address] Jan, [facility] [address] [id number] [place] [address] Jan, [facility] [address] [id number] [place] [address] Jan, [facility] [address] [id number] [place] [address] Jan, [facility] [address] [id number] [place] [address] Jan, [facility] [address] [id number] [place] [address] Jan, [facility] [address] [id number] [place] [address] Dec, [facility] [address] [id number] [place] [address] Dec, [facility] [address] [id number] [place] [address] 13 Dec, 2012 [facility] [address] [id number] [place] [address] Dec, [facility] [address] [id number] [place] [address] 07 Dec, 2012 [facility] [address] [id number] [place] [address] Dec, [facility] [address] [id number] [place] [address] Dec, [facility] [address] [id number] [place] [address] Nov, [facility] [address] [id number] [place] [address] Nov, [facility] [address] [id number] [place] [address] Nov, [facility] [address] [id number] [place] [address] Nov, [facility] [address] [id number] [place] [address] Nov, [facility] [address] [id number] [place] [address] Nov, [facility] [address] [id number] [place] [address] Nov, [facility] [address] [id number] [place] [address] Oct, [facility] [address] [id number] [place] [address] Oct, [facility] [address] [id number] [place] [address] Oct, [facility] [address] [id number] [place] [address] Oct, [facility] [address] [id number] [place] [address] Oct, [facility] [address] [id number] [place] [address] Oct, [facility] [address] [id number] [place] [address] Oct, [facility] [address] [id number] [place] [address] Oct, [facility] [address] [id number] [place] [address] Oct, [facility] [address] [id number] [place] [address] Oct, [facility] [address] [id number] [place] [address] Oct, [facility] [address] [id number] [place] [address] Oct, [facility] [address] [id number] [place] [address] Sep, [facility] [address] [id number] [place] [address] Sep, [facility] [address] [id number] [place] [address] Sep, [facility] [address] [id number] [place] [address] Sep, [facility] [address] [id number] [place] [address] Sep, [facility] [address] [id number] [place] [address] Sep, [facility] [address] [id number] [place] [address] Sep, [facility] [address] [id number] [place] [address] Sep, [facility] [address] [id number] [place] [address] Sep, [facility] [address] [id number] [place] [address] Sep, [facility] [address] [id number] [place] [address] Sep, [facility] [address] [id number] [place] [address] Aug, [facility] [address] [id number] [place] [address] Aug, [facility] [address] [id number] [place] [address] Aug, [facility] [address] [id number] [place] [address] Aug, [facility] [address] [id number] [place] [address] Aug, [facility] [address] [id number] [place] [address] Aug, [facility] [address] [id number] [place] [address] Aug, [facility] [address] [id number] [place] [address] Aug, [facility] [address] [id number] [place] [address] Aug, [facility] [address] [id number] [place] [address] Aug, [facility] [address] [id number] [place] [address] Jul, [facility] [address] [id number] [place] [address] 20 Jul, 2012 [facility] [address] [id number] [place] [address] Jul, [facility] [address] [id number] [place] [address] 06 Jul, 2012 [facility] [address] [id number] [place] [address] Jun, [facility] [address] [id number] [place] [address] Jun, [facility] [address] [id number] [place] [address] Jun, [facility] [address] [id number] [place] [address] Jun, [facility] [address] [id number] [place] [address] Jun, [facility] [address] [id number] [place] [address] Jun, [facility] [address] [id number] [place] [address] Jun, [facility] [address] [id number] [place] [address] May, [facility] [address] [id number] [place] [address] May, [facility] [address] [id number] [place] [address] May, [facility] [address] [id number] [place] [address] May, [facility] [address] [id number] [place] [address] May, [facility] [address] [id number] [place] [address] Apr, [facility] [address] [id number] [place] [address] Apr, [facility] [address] [id number] [place] [address] Apr, [facility] [address] [id number] [place] [address] Apr, [facility] [address] [id number] [place] [address] Apr, [facility] [address] [id number] [place] [address] March, [facility] [address] [id number] [place] [address] March, [facility] [address] [id number] [place] [address] March, [facility] [address] [id number] [place] [address] March, [facility] [address] [id number] [place] [address] March, [facility] [address] [id number] [place] [address] March, [facility] [address] [id number] [place] [address] March, [facility] [address] [id number] [place] [address] March, [facility] [address] [id number] [place] [address] March, [facility] [address] [id number] [place] [address] March, [facility] [address] [id number] [place] [address] 30 Feb, 2012 [facility] [address] [id number] [place] [address] Feb, [facility] [address] [id number] [place] [address] Feb, [facility] [address] [id number] [place] [address] Feb, [facility] [address] [id number] [place] [address] Feb, [facility] [address] [id number] [place] [address] Feb, [facility] [address] [id number] [place] [address] Feb, [facility] [address] [id number] [place] [address] Feb, [facility] [address] [id number] [place] [address] Feb, [facility] [address] [id number] [place] [address] 08 Jan, 2012 [facility] [address] [id number] [place] [address] Jan, [facility] [address] [id number] [place] [address] Jan, [facility] [address] [id number] [place] [address] Jan, [facility] [address] [id number] [place] [address] Dec, [facility] [address] [id number] [place] [address] Dec, [facility] [address] [id number] [place] [address] Nov, [facility] [address] [id number] [place] [address] Nov, [facility] [address] [id number] [place] [address] Nov, [facility] [address] [id number] [place] [address] Nov, [facility] [address] [id number] [place] [address] Nov, [facility] [address] [id number] [place] [address] Oct, [facility] [address] [id number] [place] [address] Oct, [facility] [address] [id number] [place] [address] Oct, [facility] [address] [id number] [place] [address] Oct, [facility] [address] [id number] [place] [address] Oct, [facility] [address] [id number] [place] [address] Oct, [facility] [address] [id number] [place] [address] Oct, [facility] [address] [id number] [place] [address] Oct, [facility] [address] [id number] [place] [address] Sep, IMMUNIZATIONS No Known Immunizations SOCIAL HISTORY [...] fever, discharged 11/27/2017 11/26/2017 Hospitalization History [facility]- Went Unrepsonsive, Hit head 2017 Hospitalization History [facility]- Back Pain 8
--- OUTSIDE RECORDS SUMMARY | 2020-06-18 15:07 | XMS REPORT ---
Author Author Sanjuanita JOHNSON [facility] Address [address] [place] [address] Care Team Providers Care Environmental Services Assistant Name Role Phone ELIZABETH SHARIF Unavailable PROBLEMS Type Condition ICD9-CM Code [id number] Code Onset Dates Condition S tatus SNOMED Code Problem Coronary artery disease I25.10 Active 96354609 Problem Hypertension I10 Active 5739278 3 Problem Other chronic pain G89.29 Active 8 6573516 Problem Hyperlipidemia E78.5 Active 81846 004 Problem Type 2 diabetes mellitus wit hout complication, without long-term current use of insulin E11.9 Active 543109602 Problem Low back pain M54.5 Active 007755 009 Problem Pharyngeal dysphagia R13.13 Active 49314716518454 Problem Anxiety F41.9 Active 01852238 Problem Peripheral vascular disease I73.9 Ac tive 952450226 Problem Suprapubic catheter Z93.59 Active 982812609 Problem Reactive depression F32.9 Active 84634748 Problem Neurogenic bladder N31.9 Active 3 66244168 Problem Ventral hernia without obstruction or gangrene K43 .9 Active 568453931 Problem Insomnia G47.00 Active 619021387 Problem Paroxysmal atrial fibrillation I48.0 Active 451806646 Problem Postmenopausal atrophic vaginitis N95.2 Active 56317446 Problem Encounter for suprapubic catheter care Z43.5 Active 690036735 ALLERGIES No Information ENCOUNTERS Encounter Location Date Diagnosis [facility] [address] [id number] [place] [address] Nov, Hypertension I10 Via [facility] [address] [place] [id number] Nov, Pneumonia of both lungs due to infectiou s organism, unspecified part of lung J18.9 and Suprapubic catheter Z93.59 [facility] [address] [facility] [place] [address] Nov, Hypertension I10 and Reactive depression F32.9 [facility] [address] [address] Oct, Strain of right shoulder, subsequent enc ounter S46.911D and Anxiety F41.9 [facility] [address] [address] Oct, Via [facility] [address] [place] [id number] Oct, Suprapubic catheter Z93.59 and Candidias is, intertriginous B37.2 [place] [address] [address] Oct, Suprapubic catheter Z93.59 [place] [address] [address] Oct, Anxiety F41.9 and Strain of right should er, subsequent encounter S46.911D [place] [address] [address] Sep, [facility] [address] [address] Sep, [place] [address] [address] Sep, Via [facility] [address] [place] [id number] Sep, Suprapubic catheter Z93.59 [place] [address] [address] Sep, Anxiety F41.9 and Strain of right should er, subsequent encounter S46.911D [facility] [address] [address] Aug, [facility] [address] [address] Aug, [facility] [address] [address] Aug, Anxiety F41.9 and Strain of right should er, subsequent encounter S46.911D Via [facility] [address] [place] [id number] Aug, Suprapubic catheter Z93.59 [place] [address] [address] Jul, Strain of right shoulder, subsequent enc ounter S46.911D and Anxiety F41.9 [place] [address] [address] Jul, Anxiety F41.9 [place] [address] [address] Jun, [place] [address] [address] Jun, [place] [address] [address] Jun, [place] [address] [address] Jun, Strain of right shoulder, subsequent enc ounter S46.911D [place] [address] [address] Jun, Strain of right shoulder, subsequent enc ounter S46.911D [place] [address] [address] Jun, Anxiety F41.9 Via [facility] [address] [place] [id number] Jun, Neurogenic bladder N31.9 and Anxiety F41 .9 Via [facility] [address] [place] [id number] May, Anxiety F41.9 [place] [address] [address] May, Dysuria R30.0 [place] [address] [address] May, Strain of right shoulder, subsequent enc ounter S46.911D and Anxiety F41.9 [place] [address] [address] 27 Apr, 2019 [facility] [address] [place] [id number] Apr, Strain of right shoulder, subsequent enc ounter S46.911D [place] [address] [address] 14 Apr, 2019 Strain of right shoulder, subsequent enc ounter S46.911D and Anxiety F41.9 [facility] [address] [place] [id number] 13 Apr, 2019 Type 2 diabetes mellitus without complic ation, without long-term current use of insulin E11.9 and Neurogenic bladder N31.9 Via [facility] [address] [place] [id number] 11 Apr, 2019 Strain of right shoulder, subsequent enc ounter S46.911D ; History of GI bleed Z87.19 ; Neurogenic bladder N31.9 and Reactive depression F32.9 [place] [address] [address] 10 Apr, 2019 Acute pain of left shoulder M25.512 [place] [address] [address] 07 Apr, 2019 [place] [address] [address] Apr, Anxiety F41.9 and Other chronic pain G89 .29 [facility] [address] [place] [id number] March, Gastrointestinal hemorrhage associated w ith acute gastritis K29.01 [place] [address] [address] March, [facility] [address] [place] [id number] March, Bronchitis J40 [place] [address] [address] March, Cough R05 [facility] [address] [address] March, Other chronic pain G89.29 [facility] [address] [address] March, Anxiety F41.9 [facility] [address] [address] March, [facility] [address] [address] Feb, Other chronic pain G89.29 [facility] [address] [address] Feb, Anxiety F41.9 [facility] [address] [address] Feb, Other chronic pain G89.29 Via [facility] [address] [place] [id number] Feb, Neurogenic bladder N31.9 and Suprapubic catheter Z93.59 [facility] [address] [address] Jan, Anxiety F41.9 [facility] [address] [address] Dec, Anxiety F41.9 [facility] [address] [address] Dec, Other chronic pain G89.29 and Anxiety F4 1.9 [facility] [address] [address] Dec, Via [facility] [address] [place] [id number] Dec, Neurogenic bladder N31.9 and Suprapubic catheter Z93.59 [facility] [address] [address] Nov, Other chronic pain G89.29 and Anxiety F4 1.9 [facility] [address] [address] Nov, Via [facility] [address] [place] [id number] Nov, Suprapubic catheter Z93.59 [facility] [address] [address] Oct, Other chronic pain G89.29 and Anxiety F4 1.9 [facility] [address] [address] Oct, [facility] [address] [address] Oct, Suprapubic catheter Z93.59 [place] [address] [address] Oct, Via [facility] [address] [place] [id number] Oct, [facility] [address] [address] Oct, Anxiety F41.9 [place] [address] [address] Oct, Anxiety F41.9 Via [facility] [address] [place] [id number] Oct, Other chronic pain G89.29 [facility] [address] [address] Sep, Other chronic pain G89.29 Via [facility] [address] [place] [id number] Sep, Suprapubic catheter Z93.59 and Cervicalg ia M54.2 [facility] [address] [address] Sep, [facility] [address] [address] Sep, [facility] [address] [address] Sep, Via [facility] [address] [place] [id number] Aug, Cystitis N30.90 [place] [address] [address] Aug, [place] [address] [address] Aug, Other chronic pain G89.29 [place] [address] [address] Aug, Via [facility] [address] [place] [id number] Aug, Encounter for suprapubic catheter care Z 43.5 [place] [address] [address] Jul, Via [facility] [address] [place] [id number] Jul, [place] [address] [address] Jul, Other chronic pain G89.29 [place] [address] [address] Jul, [place] [address] [address] Jul, Via [facility] [address] [place] [id number] Jun, Postmenopausal atrophic vaginitis N95.2 [place] [address] [address] Jun, Other chronic pain G89.29 [place] [address] [address] Jun, Via [facility] [address] [place] [id number] May, Anxiety F41.9 ; Type 2 diabetes mellitus without complication, without long-term current use of insulin E11.9 ; Hypertension I10 ; Low back pain M54.5 ; Paroxysmal atrial fibrillation I48.0 and 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 [facility] [address] [id number] [place] [address] May, Other chronic pain G89.29 Via [facility] [address] [place] [id number] May, Low back pain M54.5 [facility] [address] [address] May, [facility] [address] [address] Apr, Other chronic pain G89.29 [facility] [address] [address] Apr, [facility] [address] [address] Apr, Via [facility] [address] [place] [id number] Apr, Closed compression fracture of L3 lumbar vertebra with routine healing, subsequent encounter S32.030D [facility] [address] [place] [id number] Apr, Low back pain M54.5 [facility] [address] [place] [id number] Apr, Coccydynia M53.3 [facility] [address] [address] March, [facility] [address] [address] March, Other chronic pain G89.29 [facility] [id number] [place] [address] March, [facility] [address] [address] March, [facility] [address] [address] Feb, [facility] [address] [address] Feb, Other chronic pain G89.29 Via [facility] [address] [place] [id number] Feb, Other chronic pain G89.29 and Anxiety F4 1.9 [facility] [address] [address] Feb, [facility] [address] [address] Jan, [facility] [address] [address] Jan, [facility] [address] [address] Jan, [place] [address] [address] Jan, [facility] [address] [address] Dec, Via [facility] [address] [place] [id number] Dec, Peripheral vascular disease I73.9 ; 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 ; Other chronic pain G89.29 ; Anxiety F41.9 ; Reactive depression F32.9 ; Insomnia G47.00 and Type 2 diabetes mellitus without complication, without long-term current use of insulin E11.9 [facility] [id number] [place] [address] Nov, [facility] [address] [id number] [place] [id number] Nov, Anxiety F41.9 [facility] [address] [address] Nov, [place] [address] [id number] [place] [id number] Nov, Anxiety F41.9 Via [facility] [address] [place] [id number] Nov, Status post surgery Z98.890 ; Confused R 41.0 ; Anxiety F41.9 and Other chronic pain G89.29 [facility] [address] [id number] [place] [id number] Nov, Other chronic pain G89.29 [facility] [address] [facility] [place] [address] Oct, [facility] [address] [id number] [place] [id number] Oct, Other chronic pain G89.29 [facility] [address] [place] [id number] [place] [address] Oct, Anxiety F41.9 [facility] [address] [id number] [place] [id number] Sep, Other chronic pain G89.29 [facility] [address] [id number] [place] [id number] Sep, Via [facility] [address] [place] [id number] Aug, Dysuria R30.0 and Anxiety F41.9 [facility] [address] [facility] [place] [address] Aug, [facility] [address] [id number] [place] [id number] Aug, Other chronic pain G89.29 [facility] [id number] [place] [address] Jul, Other chronic pain G89.29 [facility] [address] [id number] [place] [id number] Jun, [facility] [address] [id number] [place] [id number] Jun, Other chronic pain G89.29 [facility] [address] [facility] [place] [address] Jun, [facility] [address] [address] May, Other chronic pain G89.29 [facility] [address] [address] Apr, Other chronic pain G89.29 Via [facility] [facility] [address] [place] [id number] Apr, Reactive depression F32.9 and Pharyngeal dysphagia R13.13 [facility] [address] [address] Apr, Urinary tract infection without hematuri a, site unspecified N39.0 [facility] [address] [address] March, Other chronic pain G89.29 [facility] [address] [address] Feb, Other chronic pain G89.29 [facility] [address] [address] Feb, [facility] [address] [id number] [place] [id number] Feb, Via [facility] [address] [place] [id number] Feb, Dysuria R30.0 and Ventral hernia without obstruction or gangrene K43.9 [facility] [address] [address] Jan, Other chronic pain G89.29 [facility] [address] [id number] [place] [id number] Dec, Other chronic pain G89.29 [facility] [address] [address] Nov, Other chronic pain G89.29 Via [facility] [address] [place] [id number] Nov, Lymphadenitis I88.9 [facility] [address] [address] Nov, Other chronic pain G89.29 [facility] [address] [facility] [place] [address] Nov, [facility] [address] [id number] [place] [id number] Nov, Other chronic pain G89.29 [facility] [place] [facility] [address] [place] [id number] Oct, Low back pain M54.5 ; Hypertension I10 a nd Type 2 diabetes mellitus without complication, without long-term current use of insulin E11.9 [facility] [address] [facility] [place] [address] Oct, [facility] [id number] [place] [address] Oct, [facility] [address] [facility] [place] [address] Oct, [facility] [id number] [place] [address] Oct, [facility] [address] [facility] [place] [address] Sep, [facility] [address] [facility] [place] [address] Sep, [facility] [address] [facility] [place] [address] Aug, Other chronic pain G89.29 [facility] [address] [facility] [place] [address] Jul, [facility] [address] [facility] [place] [address] Jul, [facility] [id number] [place] [address] Jul, [facility] [id number] [place] [address] Jun, [facility] [id number] [place] [address] Jun, [facility] [address] [place] [id number] Jun, Low back pain M54.5 ; Other chronic pain G89.29 and Coronary artery disease I25.10 [facility] [address] [address] Jun, [facility] [address] [address] May, [facility] [address] [address] May, [facility] [address] [address] May, Other chronic pain G89.29 [facility] [address] [address] May, [facility] [address] [address] Apr, [facility] [address] [address] Apr, Acute cystitis without hematuria N30.00 [facility] [address] [address] 16 Apr, 2016 Acute cystitis without hematuria N30.00 ; Coronary artery disease I25.10 ; Low back pain M54.5 and Other chronic pain G89.29 [facility] [address] [address] Apr, Other chronic pain G89.29 [facility] [address] [address] March, Other chronic pain G89.29 [facility] [address] [address] Feb, [facility] [address] [address] Feb, Arthritis M19.90 [facility] [address] [address] Feb, [facility] [id number] [place] [address] Jan, [facility] [address] [address] Jan, [facility] [id number] [place] [address] Jan, Other chronic pain G89.29 [facility] [address] [address] Jan, Hypertension I10 ; Coronary artery disea se I25.10 and Insomnia G47.00 [facility] [address] [address] Jan, [facility] [address] [address] Dec, Right hip pain M25.551 [facility] [address] [address] Dec, [facility] [address] [address] Dec, [facility] [address] [address] Dec, [facility] [address] [address] Dec, Other chronic pain G89.29 [facility] [address] [address] Dec, [facility] [address] [address] Nov, [facility] [address] [address] Nov, Other chronic pain G89.29 [facility] [id number] [place] [address] Nov, Right hip pain M25.551 and Coronary karissa ry disease I25.10 [facility] [id number] [place] [address] Nov, Other chronic pain G89.29 [facility] [id number] [place] [address] Oct, [facility] [id number] [place] [address] Oct, [facility] [id number] [place] [address] Sep, [facility] [address] [address] Sep, [facility] [address] [address] Aug, [facility] [id number] [place] [address] Aug, Hypertension I10 ; Coronary artery disea se I25.10 and Arthritis M19.90 [facility] [id number] [place] [address] Jun, [facility] [id number] [place] [address] Jun, Essential hypertension, benign 401.1 ; O ther chronic pain 338.29 and Chronic airway obstruction, not elsewhere classified 496 [facility] [id number] [place] [address] Jun, [facility] [id number] [place] [address] Jun, [facility] [id number] [place] [address] Jun, [facility] [id number] [place] [address] May, [facility] [id number] [place] [address] May, [facility] [id number] [place] [address] Apr, [facility] [address] [id number] [place] [address] 16 Apr, 2015 [facility] [address] [id number] [place] [address] Apr, [facility] [address] [id number] [place] [address] March, [facility] [address] [id number] [place] [address] March, [facility] [address] [id number] [place] [address] March, [facility] [address] [id number] [place] [address] March, [facility] [address] [id number] [place] [address] March, Sialadenitis 527.2 [facility] [address] [id number] [place] [address] Feb, [facility] [address] [id number] [place] [address] 29 Feb, 2015 [facility] [address] [id number] [place] [address] 29 Feb, 2015 [facility] [address] [id number] [place] [address] 14 Feb, 2015 [facility] [address] [id number] [place] [address] 13 Feb, 2015 [facility] [place] [facility] [address] [id number] [place] [address] 19 Jan, 2015 [facility] [place] [facility] [address] [id number] [place] [address] 19 Jan, 2015 [facility] [place] [facility] [address] [id number] [place] [address] 10 Jan, 2015 [facility] [place] [facility] [address] [id number] [place] [address] 10 Jan, 2015 [facility] [place] [facility] [address] [id number] [place] [address] Jan, [facility] [place] [facility] [address] [facility] [id number] [facility] [address] Jan, [facility] [place] [facility] [address] [facility] [id number] [facility] [address] Dec, [facility] [place] [facility] [address] [id number] [facility] [address] Dec, [facility] [place] [facility] [address] [id number] [place] [address] Dec, [facility] [place] [facility] [address] [facility] [id number] [facility] [address] Dec, [facility] [place] [facility] [address] [id number] [facility] [address] Dec, [facility] [place] [facility] [address] [id number] [place] [address] Dec, [facility] [place] [facility] [address] [id number] [place] [address] Nov, [facility] [place] [facility] [address] [id number] [facility] [address] Nov, [facility] [place] [facility] [address] [id number] [facility] [address] Nov, [facility] [place] [facility] [address] [id number] [place] [address] Nov, [facility] [place] [facility] [address] [id number] [place] [address] Nov, [facility] [place] [facility] [address] [facility] [id number] [facility] [address] Nov, [facility] [place] [facility] [address] [id number] [place] [address] Nov, [facility] [place] [facility] [address] [facility] [id number] [place] [address] Nov, [facility] [address] [id number] [place] [address] Nov, [facility] [address] [id number] [place] [address] 15 Nov, 2014 [facility] [address] [id number] [place] [address] Nov, [facility] [address] [id number] [place] [address] Nov, [facility] [address] [id number] [place] [address] Nov, [facility] [address] [id number] [place] [address] Nov, [facility] [address] [id number] [place] [address] Oct, [facility] [address] [id number] [place] [address] Oct, [facility] [address] [id number] [place] [address] Oct, [facility] [address] [id number] [place] [address] 18 Oct, 2014 [facility] [address] [id number] [place] [address] 18 Oct, 2014 [facility] [address] [id number] [place] [address] 17 Oct, 2014 [facility] [address] [id number] [place] [address] 17 Oct, 2014 [facility] [address] [id number] [place] [address] 10 Oct, 2014 [facility] [address] [id number] [place] [address] 10 Oct, 2014 [facility] [address] [id number] [place] [address] Sep, [facility] [address] [id number] [place] [address] Sep, [facility] [address] [id number] [place] [address] Sep, [facility] [address] [id number] [place] [address] Sep, [facility] [address] [id number] [place] [address] Sep, [facility] [address] [id number] [place] [address] Sep, [facility] [address] [id number] [place] [address] Sep, [facility] [address] [id number] [place] [address] Sep, [facility] [address] [id number] [place] [address] Sep, [facility] [address] [id number] [place] [address] Sep, [facility] [address] [id number] [place] [address] Sep, [facility] [address] [id number] [place] [address] Sep, [facility] [address] [id number] [place] [address] Aug, [facility] [address] [id number] [place] [address] Aug, [facility] [address] [id number] [place] [address] Aug, [facility] [address] [id number] [place] [address] Aug, [facility] [address] [id number] [place] [address] Aug, [facility] [address] [id number] [place] [address] Aug, [facility] [address] [id number] [place] [address] Aug, [facility] [address] [id number] [place] [address] 17 Aug, 2014 [facility] [address] [id number] [facility] [address] 30 Jul, 2013 [facility] [address] [facility] [id number] [place] [address] 30 Jul, 2013 [facility] [address] [id number] [place] [address] 30 Jul, 2013 [facility] [address] [facility] [id number] [place] [address] 30 Jul, 2013 [facility] [address] [facility] [id number] [facility] [address] Jul, [facility] [address] [id number] [place] [address] Jul, 2013 [facility] [address] [id number] [place] [address] 15 Jul, 2014 [facility] [address] [id number] [place] [address] 15 Jul, 2013 [facility] [address] [facility] [id number] [facility] [address] Jul, [facility] [address] [id number] [place] [address] Jul, [facility] [address] [id number] [place] [address] Jun, [facility] [address] [id number] [facility] [address] Jun, [facility] [address] [facility] [id number] [place] [address] Jun, [facility] [address] [id number] [place] [address] Jun, [facility] [address] [id number] [place] [address] Jun, [facility] [address] [id number] [place] [address] Jun, [facility] [address] [id number] [facility] [address] Jun, [facility] [address] [facility] [id number] [facility] [address] Jun, [facility] [address] [facility] [id number] [facility] [address] Jun, [facility] [address] [facility] [id number] [place] [address] Jun, [facility] [address] [facility] [id number] [place] [address] Jun, [facility] [address] [facility] [id number] [place] [address] Jun, [facility] [address] [id number] [place] [address] Jun, [facility] [address] [id number] [place] [address] Jun, [facility] [address] [id number] [place] [address] Jun, [facility] [address] [facility] [id number] [place] [address] Jun, [facility] [address] [id number] [place] [address] Jun, [facility] [address] [id number] [place] [address] Jun, [facility] [address] [facility] [id number] [place] [address] Jun, [facility] [address] [id number] [place] [address] Jun, [facility] [address] [id number] [place] [address] Jun, [facility] [address] [facility] [id number] [place] [address] Jun, [facility] [address] [id number] [place] [address] May, [facility] [address] [id number] [place] [address] May, 2013 [facility] [address] [id number] [facility] [address] May, 2013 [facility] [address] [facility] [id number] [place] [address] May, 2013 [facility] [address] [id number] [facility] [address] May, 2013 [facility] [address] [facility] [id number] [place] [address] May, 2013 [facility] [address] [facility] [id number] [place] [address] May, 2013 [facility] [address] [facility] [id number] [place] [address] May, 2013 [facility] [address] [id number] [place] [address] May, 2013 [facility] [address] [facility] [id number] [place] [address] May, [facility] [address] [id number] [place] [address] May, [facility] [address] [id number] [place] [address] May, [facility] [address] [id number] [place] [address] May, [facility] [address] [facility] [id number] [place] [address] Apr, [facility] [address] [id number] [place] [address] Apr, [facility] [address] [facility] [id number] [place] [address] Apr, [facility] [address] [id number] [place] [address] Apr, [facility] [address] [facility] [id number] [facility] [address] Apr, [facility] [address] [facility] [id number] [facility] [address] Apr, [facility] [address] [facility] [id number] [place] [address] Apr, [facility] [address] [id number] [place] [address] Apr, [facility] [address] [id number] [facility] [address] Apr, [facility] [address] [facility] [id number] [facility] [address] March, [facility] [address] [id number] [place] [address] March, [facility] [address] [id number] [place] [address] March, [facility] [address] [id number] [place] [address] March, [facility] [address] [facility] [id number] [facility] [address] March, [facility] [address] [id number] [place] [address] March, [facility] [address] [id number] [place] [address] March, [facility] [address] [id number] [facility] [address] March, [facility] [address] [facility] [id number] [facility] [address] March, [facility] [address] [id number] [place] [address] March, [facility] [address] [id number] [facility] [address] March, [facility] [address] [id number] [place] [address] March, [facility] [address] [id number] [place] [address] March, [facility] [address] [id number] [place] [address] March, [facility] [address] [id number] [place] [address] March, [facility] [address] [id number] [place] [address] March, [facility] [address] [id number] [place] [address] March, [facility] [address] [id number] [place] [address] March, [facility] [address] [id number] [place] [address] March, [facility] [address] [id number] [place] [address] March, [facility] [address] [id number] [place] [address] Feb, [facility] [address] [id number] [place] [address] Feb, [facility] [address] [id number] [place] [address] Feb, [facility] [address] [id number] [place] [address] Feb, [facility] [address] [id number] [place] [address] Feb, [facility] [address] [id number] [place] [address] Feb, [facility] [address] [id number] [place] [address] Feb, [facility] [address] [id number] [place] [address] Feb, [facility] [address] [id number] [place] [address] Jan, [facility] [address] [facility] [id number] [place] [address] Jan, [facility] [address] [facility] [id number] [facility] [address] Jan, [facility] [address] [facility] [id number] [place] [address] Jan, [facility] [address] [id number] [place] [address] Jan, [facility] [address] [facility] [id number] [facility] [address] Jan, [facility] [address] [id number] [place] [address] Jan, [facility] [address] [id number] [place] [address] Jan, [facility] [address] [id number] [place] [address] Jan, [facility] [address] [id number] [place] [address] Jan, [facility] [address] [id number] [place] [address] Dec, [facility] [address] [id number] [place] [address] Dec, [facility] [address] [id number] [place] [address] Dec, [facility] [address] [id number] [place] [address] 2013 [facility] [address] [facility] [id number] [place] [address] 2013 [facility] [address] [id number] [place] [address] 13 Dec, 2013 [facility] [address] [id number] [place] [address] 12 Dec, 2013 [facility] [address] [id number] [place] [address] Dec, [facility] [address] [id number] [place] [address] Nov, [facility] [address] [id number] [place] [address] Nov, [facility] [address] [id number] [place] [address] Nov, [facility] [address] [id number] [place] [address] Nov, [facility] [address] [id number] [place] [address] Nov, [facility] [address] [id number] [place] [address] Nov, [facility] [address] [id number] [place] [address] Nov, [facility] [address] [id number] [place] [address] Nov, [facility] [address] [id number] [place] [address] Nov, [facility] [address] [id number] [place] [address] Nov, [facility] [address] [id number] [place] [address] Nov, [facility] [address] [id number] [place] [address] Nov, [facility] [address] [id number] [place] [address] Nov, [facility] [address] [id number] [place] [address] Oct, [facility] [address] [id number] [place] [address] Oct, [facility] [address] [id number] [place] [address] Oct, [facility] [address] [id number] [place] [address] Oct, 2012 [facility] [address] [id number] [place] [address] Oct, [facility] [address] [id number] [place] [address] Oct, [facility] [address] [id number] [place] [address] Oct, [facility] [address] [id number] [place] [address] Oct, [facility] [address] [id number] [place] [address] Oct, [facility] [address] [id number] [place] [address] Oct, [facility] [id number] [place] [address] Oct, [facility] [address] [id number] [place] [address] Oct, [facility] [address] [id number] [place] [address] Oct, [facility] [address] [id number] [place] [address] Oct, [facility] [address] [id number] [place] [address] 14 Sep, 2013 [facility] [address] [id number] [place] [address] 14 Sep, 2013 [facility] [address] [id number] [place] [address] 05 Sep, 2013 [facility] [address] [id number] [place] [address] 05 Sep, 2013 [facility] [address] [id number] [place] [address] 04 Sep, 2013 [facility] [address] [id number] [place] [address] Sep, [facility] [address] [id number] [place] [address] Sep, [facility] [address] [id number] [place] [address] Sep, [facility] [address] [id number] [place] [address] Sep, [facility] [address] [id number] [place] [address] Sep, [facility] [address] [id number] [place] [address] Aug, [facility] [address] [id number] [place] [address] Aug, [facility] [address] [id number] [place] [address] Aug, [facility] [address] [id number] [place] [address] Aug, [facility] [address] [id number] [place] [address] Aug, [facility] [address] [id number] [place] [address] Aug, [facility] [address] [id number] [place] [address] Aug, [facility] [address] [id number] [place] [address] Aug, [facility] [address] [id number] [place] [address] Aug, [facility] [address] [id number] [place] [address] Aug, [facility] [address] [id number] [place] [address] Aug, [facility] [address] [id number] [place] [address] Aug, [facility] [address] [id number] [facility] [address] 18 Aug, 2012 [facility] [address] [id number] [place] [address] 18 Aug, 2013 [facility] [address] [facility] [id number] [place] [address] 17 Aug, 2013 [facility] [address] [facility] [id number] [place] [address] 14 Aug, 2013 [facility] [address] [facility] [id number] [place] [address] 14 Aug, 2013 [facility] [address] [facility] [id number] [place] [address] 01 Aug, 2013 [facility] [address] [id number] [place] [address] 20 Jul, 2013 [facility] [address] [id number] [place] [address] 19 Jul, 2013 [facility] [address] [id number] [place] [address] 18 Jul, 2013 [facility] [address] [facility] [id number] [place] [address] 11 Jul, 2013 [facility] [address] [id number] [place] [address] Jul, [facility] [address] [id number] [place] [address] 28 Jun, 2013 [facility] [address] [facility] [id number] [place] [address] Jun, [facility] [address] [facility] [id number] [place] [address] Jun, [facility] [address] [id number] [place] [address] 15 Jun, 2013 [facility] [address] [facility] [id number] [place] [address] 14 Jun, 2013 [facility] [address] [id number] [place] [address] Jun, [facility] [address] [id number] [place] [address] Jun, [facility] [address] [facility] [id number] [place] [address] Jun, [facility] [address] [facility] [id number] [place] [address] Jun, [facility] [address] [id number] [facility] [address] Jun, [facility] [address] [facility] [id number] [facility] [address] May, [facility] [address] [id number] [place] [address] May, [facility] [address] [id number] [place] [address] May, [facility] [address] [id number] [place] [address] May, [facility] [address] [id number] [place] [address] May, [facility] [address] [id number] [place] [address] May, [facility] [address] [id number] [place] [address] May, [facility] [address] [id number] [place] [address] May, [facility] [address] [id number] [place] [address] May, [facility] [address] [facility] [id number] [place] [address] Apr, [facility] [address] [id number] [place] [address] Apr, [facility] [address] [id number] [place] [address] Apr, [facility] [address] [id number] [place] [address] Apr, [facility] [address] [id number] [place] [address] Apr, [facility] [address] [id number] [place] [address] Apr, [facility] [address] [id number] [place] [address] Apr, [facility] [address] [id number] [place] [address] March, [facility] [address] [id number] [facility] [address] Feb, [facility] [address] [id number] [place] [address] Feb, [facility] [address] [id number] [place] [address] Feb, [facility] [address] [id number] [place] [address] Jan, [facility] [address] [id number] [place] [address] Jan, [facility] [address] [id number] [place] [address] Jan, [facility] [address] [id number] [place] [address] Jan, [facility] [address] [id number] [place] [address] Jan, [facility] [address] [id number] [place] [address] 08 Jan, 2013 [facility] [address] [id number] [place] [address] 07 Jan, 2013 [facility] [address] [id number] [place] [address] Jan, [facility] [address] [id number] [place] [address] Dec, [facility] [address] [id number] [place] [address] 25 Dec, 2012 [facility] [address] [id number] [place] [address] Dec, [facility] [address] [id number] [place] [address] Dec, [facility] [address] [id number] [place] [address] 07 Dec, 2012 [facility] [address] [id number] [place] [address] 06 Dec, 2012 [facility] [address] [id number] [place] [address] 05 Dec, 2012 [facility] [address] [id number] [place] [address] Nov, [facility] [address] [id number] [place] [address] Nov, [facility] [address] [id number] [place] [address] Nov, [facility] [address] [id number] [place] [address] Nov, [facility] [address] [id number] [place] [address] Nov, [facility] [address] [id number] [place] [address] Nov, [facility] [address] [id number] [place] [address] Nov, [facility] [address] [id number] [place] [address] Oct, [facility] [address] [id number] [place] [address] Oct, [facility] [address] [id number] [place] [address] Oct, [facility] [address] [id number] [place] [address] Oct, [facility] [address] [id number] [place] [address] Oct, [facility] [address] [id number] [place] [address] Oct, [facility] [address] [id number] [place] [address] Oct, [facility] [address] [id number] [place] [address] Oct, [facility] [address] [id number] [place] [address] Oct, [facility] [address] [id number] [place] [address] Oct, [facility] [address] [id number] [place] [address] Oct, [facility] [address] [id number] [place] [address] Oct, [facility] [address] [id number] [place] [address] Sep, [facility] [address] [id number] [place] [address] Sep, [facility] [address] [id number] [place] [address] Sep, [facility] [address] [id number] [place] [address] Sep, [facility] [address] [id number] [place] [address] Sep, [facility] [address] [id number] [place] [address] Sep, [facility] [address] [id number] [place] [address] Sep, [facility] [address] [id number] [place] [address] Sep, [facility] [address] [id number] [place] [address] Sep, [facility] [address] [id number] [place] [address] Sep, [facility] [address] [id number] [place] [address] Sep, [facility] [address] [id number] [place] [address] Aug, [facility] [address] [id number] [place] [address] Aug, [facility] [address] [id number] [place] [address] Aug, [facility] [address] [id number] [place] [address] Aug, [facility] [address] [id number] [place] [address] Aug, [facility] [address] [id number] [place] [address] Aug, [facility] [address] [id number] [place] [address] Aug, [facility] [address] [id number] [place] [address] Aug, [facility] [address] [id number] [place] [address] Aug, [facility] [address] [id number] [place] [address] Aug, [facility] [address] [id number] [place] [address] 22 Jul, 2012 [facility] [address] [id number] [place] [address] 20 Jul, 2012 [facility] [address] [id number] [place] [address] 10 Jul, 2011 [facility] [address] [id number] [place] [address] Jul, [facility] [address] [id number] [place] [address] Jun, [facility] [address] [id number] [place] [address] Jun, [facility] [address] [id number] [place] [address] Jun, [facility] [address] [id number] [place] [address] Jun, [facility] [address] [id number] [place] [address] Jun, [facility] [address] [id number] [place] [address] Jun, [facility] [address] [id number] [place] [address] Jun, [facility] [address] [id number] [place] [address] May, [facility] [address] [id number] [place] [address] May, [facility] [address] [id number] [place] [address] May, [facility] [address] [id number] [place] [address] May, [facility] [address] [id number] [place] [address] May, [facility] [address] [id number] [place] [address] Apr, [facility] [address] [id number] [place] [address] Apr, [facility] [address] [id number] [place] [address] Apr, [facility] [address] [id number] [place] [address] Apr, [facility] [address] [id number] [place] [address] Apr, [facility] [address] [id number] [place] [address] March, [facility] [address] [id number] [place] [address] March, [facility] [address] [id number] [place] [address] March, [facility] [address] [id number] [place] [address] March, [facility] [address] [facility] [id number] [place] [address] March, [facility] [address] [id number] [place] [address] March, [facility] [address] [id number] [place] [address] March, [facility] [address] [id number] [place] [address] March, [facility] [address] [id number] [place] [address] March, [facility] [address] [id number] [place] [address] March, [facility] [address] [id number] [place] [address] Feb, [facility] [address] [id number] [place] [address] Feb, [facility] [address] [id number] [place] [address] Feb, [facility] [address] [id number] [place] [address] Feb, [facility] [address] [id number] [place] [address] Feb, [facility] [address] [id number] [place] [address] Feb, [facility] [address] [id number] [place] [address] Feb, [facility] [address] [id number] [place] [address] Feb, [facility] [address] [id number] [place] [address] Feb, [facility] [address] [id number] [place] [address] Jan, [facility] [address] [id number] [place] [address] Jan, [facility] [address] [id number] [place] [address] Jan, [facility] [address] [id number] [place] [address] Jan, [facility] [address] [id number] [place] [address] Dec, [facility] [address] [id number] [place] [address] Dec, [facility] [address] [id number] [place] [address] Nov, [facility] [address] [id number] [place] [address] Nov, [facility] [address] [id number] [place] [address] Nov, [facility] [address] [id number] [place] [address] Nov, [facility] [address] [id number] [place] [address] Nov, [facility] [id number] [place] [address] Oct, [facility] [address] [id number] [place] [address] Oct, [facility] [id number] [place] [address] Oct, [facility] [address] [id number] [place] [address] Oct, [facility] [id number] [place] [address] Oct, [facility] [address] [id number] [place] [address] Oct, [facility] [id number] [place] [address] Oct, [facility] [id number] [place] [address] Oct, [facility] [address] [address] Sep, IMMUNIZATIONS No Known Immunizations SOCIAL HISTORY Never Assessed REASON FOR VISIT PLAN OF CARE VITAL SIGNS Height 62 in 2014-05-18 Weight 191.4 lbs 2014-05-18 Temperature 97.6 degrees Fahrenheit 2014-05-18 Heart Rate 86 bpm 2014-05-18 Respiratory Rate 26 2014-05-18 Blood pressure systolic 180 mmHg 2014-05-18 Blood pressure diastolic 68 mmHg 2014-05-18 MEDICATIONS Unknown Medications RESULTS No Results PROCEDURES [...] and fever, discharged 11/27/2017 11/26/2017 Hospitalization History [facility]- Went Unrepsonsive, Hit head 2017 Hospitalization History [facility] [place]- Back Pain 05/05/ 8
--- OUTSIDE RECORDS SUMMARY | 2020-06-18 15:08 | XMS REPORT ---
Author Author Sanjuanita Abdul Doctor Organization [facility] Address Unknown Phone Unavailable Care Team Providers Care Psychology Instructor Name Role Phone Migration, Doctor Unavailable Unavailable PROBLEMS Type Condition ICD9-CM Code ZSH09-PY Code Onset Dates Condition S tatus SNOMED Code Problem Coronary artery disease I25.10 Active 53460315 Problem Hypertension I10 Active 9329475 3 Problem Other chronic pain G89.29 Active 8 6259441 Problem Hyperlipidemia E78.5 Active 68787 004 Problem Type 2 diabetes mellitus wit hout complication, without long-term current use of insulin E11.9 Active 048696509 Problem Low back pain M54.5 Active 311211 009 Problem Pharyngeal dysphagia R13.13 Active 88141924898167 Problem Anxiety F41.9 Active 19867729 Problem Peripheral vascular disease I73.9 Ac tive 284927267 Problem Suprapubic catheter Z93.59 Active 471077644 Problem Reactive depression F32.9 Active 96083230 Problem Neurogenic bladder N31.9 Active 3 89376574 Problem Ventral hernia without obstruction or gangrene K43 .9 Active 544846471 Problem Insomnia G47.00 Active 384998619 Problem Paroxysmal atrial fibrillation I48.0 Active 923402009 Problem Postmenopausal atrophic vaginitis 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 Active 73672058 Problem Encounter for suprapubic catheter care Z43.5 Active 603921711 ALLERGIES No Information ENCOUNTERS Encounter Location Date Diagnosis Via [facility] [address] [place] [id number] Aug, Suprapubic catheter Z93.59 [facility] [address] [id number] [address] [place] [id number] Jul, Strain of right shoulder, scherer bsequent encounter S46.911D and Anxiety F41.9 [facility] [address] [id number] [address] [place] [phone] Jul, Anxiety F41.9 [place] [address] [id number] [address] [place] [phone] Jun, [facility] [address] [id number] [address] [place] [phone] Jun, [facility] [address] [id number] [address] [place] [id number] Jun, [facility] [address] [id number] [address] [place] [phone] Jun, Strain of right shoulder, scherer bsequent encounter S46.911D [place] [address] [id number] [address] [place] [id number] Jun, Strain of right shoulder, scherer bsequent encounter S46.911D [place] [address] [id number] [address] [place] [address] Jun, Anxiety F41.9 [facility] [address] [place] [id number] Jun, Neurogenic bladder N31.9 and Anxiety F41 .9 [facility] [address] [place] [id number] May, Anxiety F41.9 [place] [address] [id number] [address] [place] [phone] May, Dysuria R30.0 [place] [address] [id number] [address] [place] [id number] May, Strain of right shoulder, scherer bsequent encounter S46.911D and Anxiety F41.9 [place] [address] [id number] [address] [place] [phone] Apr, Via [facility] [address] [place] [id number] Apr, Strain of right shoulder, subsequent enc ounter S46.911D [facility] [address] [id number] [address] [place] [address] Apr, Strain of right shoulder, scherer bsequent encounter S46.911D and Anxiety F41.9 [facility] [address] [place] [id number] 13 Apr, 2019 Type 2 diabetes mellitus without complic ation, without long-term current use of insulin E11.9 and Neurogenic bladder N31.9 [facility] [address] [place] [id number] 11 Apr, 2019 Strain of right shoulder, subsequent enc ounter S46.911D ; History of GI bleed Z87.19 ; Neurogenic bladder N31.9 and Reactive depression F32.9 [facility] [address] [id number] [address] [place] [id number] Apr, Acute pain of left shoulder M25.512 [place] [address] [id number] [address] [place] [phone] Apr, [place] [address] [id number] [address] [place] [phone] Apr, Anxiety F41.9 and Other guest services lead 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 Via [facility] [address] [place] [id number] March, Gastrointestinal hemorrhage associated w ith acute gastritis K29.01 [facility] [address] [id number] [address] [place] [id number] March, Via [facility] [address] [place] [id number] March, Bronchitis J40 [facility] [address] [id number] [address] [place] [phone] March, Cough R05 [facility] [address] [id number] [address] [place] [phone] March, Other chronic pain G89.29 [facility] [address] [id number] [address] [place] [phone] March, Anxiety F41.9 [facility] [address] [id number] [address] [place] [id number] March, [facility] [address] [id number] [address] [place] [phone] Feb, Other chronic pain G89.29 [facility] [address] [id number] [address] [place] [address] Feb, Anxiety F41.9 [facility] [address] [id number] [address] [place] [address] Feb, Other chronic pain G89.29 [facility] [address] [place] [id number] Feb, Neurogenic bladder N31.9 and Suprapubic catheter Z93.59 [facility] [address] [id number] [address] [place] [phone] Jan, Anxiety F41.9 [facility] [address] [id number] [address] [place] [phone] Dec, Anxiety F41.9 [facility] [address] [id number] [address] [place] [phone] Dec, Other chronic pain G89.29 an d Anxiety F41.9 [facility] [address] [id number] [address] [place] [address] Dec, Via [facility] [address] [place] [id number] Dec, Neurogenic bladder N31.9 and Suprapubic catheter Z93.59 [facility] [address] [id number] [address] [place] [phone] Nov, Other chronic pain G89.29 an d Anxiety F41.9 [facility] [address] [id number] [address] [place] [phone] Nov, [facility] [address] [place] [id number] Nov, Suprapubic catheter Z93.59 [facility] [address] [id number] [address] [place] [phone] Oct, Other chronic pain G89.29 an d Anxiety F41.9 [facility] [address] [id number] [address] [place] [id number] Oct, [facility] [address] [id number] [address] [place] [phone] Oct, Suprapubic catheter Z93.59 [facility] [address] [id number] [address] [place] [phone] Oct, Via [facility] [address] [place] [id number] Oct, [facility] [address] [id number] [address] [place] [phone] Oct, Anxiety F41.9 [facility] [address] [id number] [address] [place] [phone] Oct, Anxiety F41.9 [facility] [address] [place] [id number] Oct, Other chronic pain G89.29 [facility] [address] [id number] [address] [place] [phone] Sep, Other chronic pain G89.29 [facility] [address] [place] [id number] Sep, Suprapubic catheter Z93.59 and Cervicalg ia M54.2 [facility] [address] [id number] [address] [place] [phone] Sep, [facility] [address] [id number] [address] [place] [phone] Sep, [facility] [address] [id number] [address] [place] [phone] Sep, Via [facility] [address] [place] [id number] Aug, Cystitis N30.90 [facility] [address] [id number] [address] [place] [phone] Aug, [facility] [address] [id number] [address] [place] [id number] Aug, Other chronic pain G89.29 [facility] [address] [id number] [address] [place] [phone] Aug, Via [facility] [address] [place] [id number] Aug, Encounter for suprapubic catheter care Z 43.5 [facility] [address] [id number] [address] [place] [id number] Jul, [facility] [address] [place] [id number] Jul, [facility] [address] [id number] [address] [place] [id number] Jul, Other chronic pain G89.29 [facility] [address] [id number] [address] [place] [phone] Jul, [facility] [address] [id number] [address] [place] [phone] Jul, [facility] [address] [place] [id number] Jun, Postmenopausal atrophic vaginitis N95.2 [facility] [address] [id number] [address] [place] [id number] Jun, Other chronic pain G89.29 [facility] [address] [id number] [address] [place] [phone] Jun, [facility] [address] [place] [id number] May, Anxiety F41.9 ; Type 2 diabetes mellitus without complication, without long-term current use of insulin E11.9 ; Hypertension I10 ; Low back pain M54.5 ; Paroxysmal atrial fibrillation I48.0 and 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 [facility] [address] [id number] [address] [place] [phone] May, Other chronic pain G89.29 [facility] [address] [place] [id number] May, Low back pain M54.5 [facility] [address] [id number] [address] [place] [phone] May, [facility] [address] [id number] [address] [place] [id number] Apr, Other chronic pain G89.29 [facility] [address] [id number] [address] [place] [phone] Apr, [facility] [address] [id number] [address] [place] [phone] Apr, [facility] [address] [place] [id number] Apr, Closed compression fracture of L3 lumbar vertebra with routine healing, subsequent encounter S32.030D [facility] [address] [place] [id number] Apr, Low back pain M54.5 [facility] [address] [place] [id number] Apr, Coccydynia M53.3 [facility] [address] [id number] [address] [place] [id number] March, [facility] [address] [id number] [address] [place] [address] March, Other chronic pain G89.29 [facility] [address] [id number] [address] [place] [phone] March, [facility] [address] [id number] [address] [place] [phone] March, [facility] [address] [id number] [address] [place] [id number] Feb, [facility] [address] [id number] [address] [place] [id number] Feb, Other chronic pain G89.29 [facility] [address] [place] [id number] Feb, Other chronic pain G89.29 and Anxiety F4 1.9 [facility] [address] [facility] [id number] [address] [place] [id number] Feb, [facility] [address] [facility] [place] [id number] [address] [place] [id number] Jan, [facility] [address] [facility] [place] [place] [id number] [address] [place] [phone] Jan, [facility] [address] [facility] [place] [id number] [address] [place] [phone] Jan, [facility] [address] [facility] [place] [id number] [address] [place] [phone] Jan, [facility] [address] [facility] [place] [id number] [address] [place] [id number] Dec, Via [facility] [address] [place] [id number] Dec, Peripheral vascular disease I73.9 ; 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 ; Other chronic pain G89.29 ; Anxiety F41.9 ; Reactive depression F32.9 ; Insomnia G47.00 and Type 2 diabetes mellitus without complication, without long-term current use of insulin E11.[address] [id number] [address] Nov, [place] [address] [id number] [place] [id number] Nov, Anxiety F41.9 [facility] [address] [facility] [place] [id number] [address] [place] [phone] Nov, [place] [address] [id number] [place] [id number] Nov, Anxiety F41.9 [facility] [address] [place] [id number] Nov, Status post surgery Z98.890 ; Confused R 41.0 ; Anxiety F41.9 and Other chronic pain G89.29 [place] [address] [id number] [place] [id number] Nov, Other chronic pain G89.29 [facility] [address] [id number] [address] [place] [address], [place] [address] Oct, [facility] [address] [id number] [place] [id number] Oct, Other chronic pain G89.29 [facility] [address] [id number] [address] [place] [address], [place] [address] Oct, Anxiety F41.9 [facility] [address] [id number] [place] [id number] Sep, Other chronic pain G89.29 [facility] [address] [id number] [place] [id number] Sep, Via [facility] [address] [place] [id number] Aug, Dysuria R30.0 and Anxiety F41.9 [facility] [address] [id number] [address] [place] [phone] Aug, [facility] [address] [id number] [place] [id number] Aug, Other chronic pain G89.29 [facility] [address] [id number] [address] [place] [phone] Jul, Other chronic pain G89.29 [facility] [address] [id number] [place] [id number] Jun, [facility] [address] [id number] [place] [id number] Jun, Other chronic pain G89.29 [facility] [address] [id number] [address] [place] [phone] Jun, [facility] [address] [facility] [place] [id number] [address] [place] [id number] May, Other chronic pain G89.29 [facility] [address] [id number] [address] [place] [phone] Apr, Other chronic pain G89.29 [facility] [address] [place] [id number] Apr, Reactive depression F32.9 and Pharyngeal dysphagia R13.13 [facility] [address] [id number] [address] [place] [id number] Apr, Urinary tract infection with out hematuria, site unspecified N39.0 [facility] [address] [id number] [address] [place] [address] March, Other chronic pain G89.29 [facility] [address] [id number] [address] [place] [id number] Feb, Other chronic pain G89.29 [facility] [address] [id number] [address] [place] [id number] Feb, [facility] [place] [address] [id number] [place] [id number] Feb, [facility] [address] [place] [id number] Feb, Dysuria R30.0 and Ventral hernia without obstruction or gangrene K43.9 [facility] [address] [id number] [address] [place] [phone] Jan, Other chronic pain G89.29 [facility] [address] [id number] [place] [id number] Dec, Other chronic pain G89.29 [facility] [address] [id number] [address] [place] [address] Nov, Other chronic pain G89.29 [facility] [address] [place] [id number] Nov, Lymphadenitis I88.9 [facility] [address] [id number] [address] [place] [phone] Nov, Other chronic pain G89.29 [facility] [address] [id number] [address] [place] [phone] Nov, [facility] [address] [id number] [place] [facility] [place] [id number] Nov, Other chronic pain G89.29 [facility] [address] [place] [id number] Oct, Low back pain M54.5 ; Hypertension I10 a nd Type 2 diabetes mellitus without complication, without long-term current use of insulin E11.9 [facility] [address] [id number] [address] [place] [phone] Oct, [facility] [address] [id number] [address] [place] [phone] Oct, [facility] [address] [id number] [address] [place] [phone] Oct, [facility] [address] [id number] [address] [place] [phone] Oct, [facility] [address] [id number] [address] [place] [id number] Sep, [facility] [address] [id number] [address] [place] [phone] Sep, [facility] [address] [id number] [address] [place] [address] Aug, Other chronic pain G89.29 [facility] [address] [id number] [address] [place] [id number] Jul, [facility] [address] [id number] [address] [place] [phone] Jul, [facility] [address] [id number] [address] [place] [id number] Jul, [facility] [address] [id number] [address] [place] [phone] Jun, [facility] [address] [id number] [address] [place] [phone] 15 Jun, 2016 [facility] [address] [place] [id number] Jun, Low back pain M54.5 ; Other chronic pain G89.29 and Coronary artery disease I25.10 [facility] [address] [id number] [address] [place] [address] 08 Jun, 2016 [facility] [address] [id number] [address] [place] [id number] May, [facility] [address] [id number] [address] [place] [phone] May, [facility] [address] [id number] [address] [place] [id number] May, Other chronic pain G89.29 [facility] [address] [id number] [address] [place] [phone] May, [facility] [address] [id number] [address] [place] [id number] Apr, [facility] [address] [id number] [address] [place] [id number] 17 Apr, 2016 Acute cystitis without hemat uria N30.00 [facility] [address] [id number] [address] [place] [id number] 16 Apr, 2016 Acute cystitis without hemat uria N30.00 ; Coronary artery disease I25.10 ; Low back pain M54.5 and Other chronic pain G89.29 [facility] [address] [id number] [address] [place] [id number] 13 Apr, 2016 Other chronic pain G89.29 [facility] [address] [id number] [address] [place] [phone] March, Other chronic pain G89.29 [facility] [address] [id number] [address] [place] [phone] Feb, [facility] [address] [id number] [address] [place] [phone] 15 Feb, 2016 Arthritis M19.90 [facility] [address] [id number] [address] [place] [phone] 13 Feb, 2016 [facility] [address] [id number] [address] [place] [id number] 30 Jan, 2016 [facility] [address] [id number] [address] [place] [id number] Jan, [facility] [address] [id number] [address] [place] [id number] Jan, Other chronic pain G89.29 [facility] [address] [id number] [address] [place] [phone] Jan, Hypertension I10 ; Coronary artery disease I25.10 and Insomnia G47.00 [facility] [address] [id number] [address] [place] [id number] Jan, [facility] [address] [id number] [address] [place] [id number] Dec, Right hip pain M25.551 [facility] [address] [id number] [address] [place] [id number] Dec, [facility] [address] [id number] [address] [place] [id number] Dec, [facility] [address] [id number] [address] [place] [id number] Dec, [facility] [address] [id number] [address] [place] [id number] Dec, Other chronic pain G89.29 [facility] [address] [id number] [address] [place] [phone] Dec, [facility] [address] [id number] [address] [place] [phone] Nov, [facility] [address] [id number] [address] [place] [phone] Nov, Other chronic pain G89.29 [facility] [address] [id number] [address] [place] [phone] Nov, Right hip pain M25.551 and C oronary artery disease I25.10 [facility] [address] [id number] [address] [place] [id number] Nov, Other chronic pain G89.29 [facility] [address] [id number] [address] [place] [id number] Oct, [facility] [address] [id number] [address] [place] [id number] Oct, [facility] [address] [id number] [address] [place] [phone] Sep, [facility] [address] [id number] [address] [place] [id number] Sep, [facility] [address] [address] [id number] [address] [place] [id number] Aug, [facility] [address] [id number] [address] [place] [address] Aug, Hypertension I10 ; Coronary artery disease I25.10 and Arthritis M19.90 [facility] [address] [id number] [address] [place] [address] Jun, [facility] [address] [id number] [address] [place] [address] Jun, Essential hypertension, jayson gn 401.1 ; Other chronic pain 338.29 and Chronic airway obstruction, not elsewhere classified 496 [facility] [address] [id number] [address] [place] [address] Jun, [facility] [address] [id number] [address] [place] [address] Jun, [facility] [address] [id number] [address] [place] [address] Jun, [facility] [address] [id number] [address] [place] [address], [place] [address] May, [facility] [address] [id number] [address] [place] [address], [place] [id number] May, [facility] [address] [id number] [address] [place] [address], [place] [address] Apr, [facility] [address] [id number] [address] [place] [id number] Apr, [facility] [address] [id number] [address] [place] [address], [place] [address] Apr, [facility] [address] [id number] [address] [place] [address], [place] [address] March, [facility] [address] [id number] [address] [place] [address], [place] [address] March, [facility] [address] [id number] [address] [place] [address], [place] [address] March, [facility] [address] [id number] [address] [place] [address], [place] [address] March, [facility] [address] [id number] [address] [place] [address] March, Sialadenitis 527.2 [facility] [address] [id number] [address] [place] [address], [place] [address] Feb, [facility] [address] [id number] [address] [place] [address] Feb, [facility] [address] [id number] [address] [place] [address], [place] [address] Feb, [facility] [address] [id number] [address] [place] [address], [place] [address] Feb, [facility] [address] [id number] [address] [place] [address] Feb, [facility] [address] [id number] [address] [place] [address], [place] [address] Jan, [facility] [address] [id number] [address] [place] [address], [place] [address] Jan, [facility] [address] [id number] [address] [place] [address], [place] [address] Jan, [facility] [address] [id number] [address] [place] [address], [place] [address] Jan, [facility] [address] [id number] [address] [place] [address], [place] [address] Jan, [facility] [address] [id number] [address] [place] [address], [place] [address] Jan, [facility] [address] [id number] [address] [place] [address], [place] [address] Dec, [facility] [address] [id number] [address] [place] [address], [place] [address] Dec, [facility] [address] [id number] [address] [place] [address], [place] [address] Dec, [facility] [address] [id number] [address] [place] [address], [place] [address] Dec, [facility] [address] [id number] [address] [place] [address], [place] [address] Dec, [facility] [address] [id number] [address] [place] [address], [place] [address] Dec, [facility] [address] [id number] [address] [place] [address], [place] [address] Nov, [facility] [address] [id number] [address] [place] [address], [place] [address] Nov, [facility] [address] [id number] [address] [place] [address], [place] [address] Nov, [facility] [address] [id number] [address] [place] [address], [place] [address] Nov, [facility] [address] [id number] [address] [place] [address], [place] [address] Nov, [facility] [address] [id number] [address] [place] [address], [place] [address] Nov, [facility] [address] [id number] [address] [place] [address], [place] [address] Nov, [facility] [address] [id number] [address] [place] [address], [place] [address] Nov, [facility] [address] [id number] [address] [place] [address], [place] [address] Nov, [facility] [address] [id number] [address] [place] [address], [place] [address] Nov, [facility] [address] [id number] [address] [place] [address], [place] [address] Nov, [facility] [address] [id number] [address] [place] [address], [place] [id number] Nov, [facility] [address] [id number] [address] [place] [address], [place] [address] Nov, [facility] [address] [id number] [address] [place] [address], [place] [address] Nov, [facility] [address] [id number] [address] [place] [address], [place] [address] Oct, [facility] [address] [id number] [address] [place] [address], [place] [address] Oct, [facility] [address] [id number] [address] [place] [address], [place] [address] Oct, [facility] [address] [id number] [address] [place] [address], [place] [address] Oct, [facility] [address] [id number] [address] [place] [address], [place] [address] Oct, [facility] [address] [id number] [address] [place] [address], [place] [address] Oct, [facility] [address] [id number] [address] [place] [address], [place] [address] Oct, [facility] [address] [id number] [address] [place] [address], [place] [address] Oct, [facility] [address] [id number] [address] [place] [address], [place] [address] Oct, [facility] [address] [id number] [address] [place] [address], [place] [address] Sep, [facility] [address] [id number] [address] [place] [address], [place] [address] Sep, [facility] [address] [id number] [address] [place] [address], [place] [address] Sep, [facility] [address] [id number] [address] [place] [address], [place] [id number] Sep, [facility] [address] [id number] [address] [place] [address], [place] [address] Sep, [facility] [address] [id number] [address] [place] [address], [place] [address] Sep, [facility] [address] [id number] [address] [place] [address], [place] [address] Sep, [facility] [address] [id number] [address] [place] [address], [place] [address] Sep, [facility] [address] [id number] [address] [place] [address], [place] [address] Sep, [facility] [address] [id number] [address] [place] [address], [place] [address] Sep, [facility] [address] [id number] [address] [place] [address], [place] [address] Sep, [facility] [address] [id number] [address] [place] [address], [place] [address] Sep, [facility] [address] [id number] [address] [place] [address], [place] [address] 30 Aug, 2014 [facility] [address] [id number] [address] [place] [address], [place] [address] 30 Aug, 2014 [facility] [address] [id number] [address] [place] [address], [place] [address] 29 Aug, 2014 [facility] [address] [id number] [address] [place] [address], [place] [address] 29 Aug, 2014 [facility] [address] [id number] [address] [place] [address], [place] [address] Aug, [facility] [address] [id number] [address] [place] [address], [place] [address] Aug, [facility] [address] [id number] [address] [place] [address], [place] [address] Aug, [facility] [address] [id number] [address] [place] [address], [place] [address] 17 Aug, 2014 [facility] [address] [id number] [address] [place] [address], [place] [address] 30 Sep, 2013 [facility] [address] [id number] [address] [place] [address], [place] [address] 30 Sep, 2013 [facility] [address] [id number] [address] [place] [address], [place] [address] 30 Sep, 2013 [facility] [address] [id number] [address] [place] [address] 30 Sep, 2013 [facility] [address] [id number] [address] [place] [address], [place] [address] 25 Sep, 2013 [facility] [address] [id number] [address] [place] [address], [place] [address] 25 Sep, 2013 [facility] [address] [id number] [address] [place] [address], [place] [address] 15 Sep, 2013 [facility] [address] [id number] [facility] [place] [address] 15 Jul, 2014 [facility] [address] [id number] [facility] [place] [address] Jul, [facility] [address] [id number] [facility] [place] [address] Jul, [facility] [address] [id number] [address] [place] [address], [place] [address] Jun, [facility] [address] [id number] [address] [place] [address], [place] [address] Jun, [facility] [address] [id number] [address] [place] [address], [place] [address] Jun, [facility] [address] [id number] [address] [place] [address], [place] [address] Jun, [facility] [address] [id number] [address] [place] [address], [place] [address] Jun, [facility] [address] [id number] [address] [place] [address], [place] [address] Jun, [facility] [address] [id number] [address] [place] [address], [place] [address] Jun, [facility] [address] [id number] [address] [place] [address], [place] [address] Jun, [facility] [address] [id number] [address] [place] [address], [place] [address] Jun, [facility] [address] [id number] [address] [place] [address], [place] [address] Jun, [facility] [address] [id number] [address] [place] [address], [place] [address] Jun, [facility] [address] [id number] [address] [place] [address], [place] [address] Jun, [facility] [address] [id number] [address] [place] [address], [place] [id number] Jun, [facility] [address] [id number] [address] [place] [address], [place] [address] Jun, [facility] [address] [id number] [address] [place] [address], [place] [address] Jun, [facility] [address] [id number] [address] [place] [address], [place] [address] Jun, [facility] [address] [id number] [address] [place] [address], [place] [address] Jun, [facility] [address] [id number] [address] [place] [address], [place] [address] Jun, [facility] [address] [id number] [address] [place] [address], [place] [address] Jun, [facility] [address] [id number] [address] [place] [address], [place] [address] Jun, [facility] [address] [id number] [address] [place] [address], [place] [address] Jun, [facility] [address] [id number] [address] [place] [address], [place] [address] Jun, [facility] [address] [id number] [address] [place] [address], [place] [address] May, [facility] [address] [id number] [address] [place] [address], [place] [address] May, [facility] [address] [id number] [address] [place] [address], [place] [address] May, [facility] [address] [id number] [address] [place] [address], [place] [address] May, [facility] [address] [id number] [address] [place] [address], [place] [address] May, [facility] [address] [id number] [address] [place] [address], [place] [address] May, [facility] [address] [id number] [address] [place] [address], [place] [address] May, 2013 [facility] [address] [id number] [facility] [place] [address] May, 2013 [facility] [address] [id number] [address] [place] [address], [place] [address] May, 2013 [facility] [address] [id number] [address] [place] [address], [place] [address] May, 2013 [facility] [address] [id number] [address] [place] [address], [place] [address] May, 2013 [facility] [address] [id number] [address] [place] [address], [place] [address] May, [facility] [address] [id number] [address] [place] [address], [place] [address] May, [facility] [address] [id number] [address] [place] [address], [place] [address] Apr, [facility] [address] [id number] [address] [place] [address], [place] [address] Apr, [facility] [address] [id number] [address] [place] [address], [place] [address] Apr, [facility] [address] [id number] [address] [place] [address], [place] [address] Apr, [facility] [address] [id number] [address] [place] [address], [place] [address] Apr, [facility] [address] [id number] [address] [place] [address], [place] [address] Apr, [facility] [address] [id number] [address] [place] [address], [place] [address] Apr, [facility] [address] [id number] [address] [place] [address], [place] [address] Apr, [facility] [address] [id number] [address] [place] [address], [place] [address] Apr, [facility] [address] [id number] [facility] [place] [address] March, [facility] [address] [id number] [facility] [place] [address] March, [facility] [address] [id number] [facility] [place] [address] March, [facility] [address] [id number] [address] [place] [address], [place] [address] March, [facility] [address] [id number] [address] [place] [address], [place] [address] March, [facility] [address] [id number] [address] [place] [address], [place] [address] March, [facility] [address] [id number] [address] [place] [address], [place] [address] March, [facility] [address] [id number] [address] [place] [address], [place] [address] March, [facility] [address] [id number] [address] [place] [address], [place] [address] March, [facility] [address] [id number] [address] [place] [address], [place] [address] March, [facility] [address] [id number] [address] [place] [address], [place] [address] March, [facility] [address] [id number] [address] [place] [address], [place] [address] March, [facility] [address] [id number] [address] [place] [address], [place] [id number] March, [facility] [address] [id number] [address] [place] [address], [place] [address] March, [facility] [address] [id number] [address] [place] [address], [place] [id number] March, [facility] [address] [id number] [address] [place] [address], [place] [id number] March, [facility] [address] [id number] [address] [place] [address] March, [facility] [address] [id number] [address] [place] [address], [place] [address] March, [facility] [address] [id number] [address] [place] [address], [place] [id number] March, [facility] [address] [id number] [address] [place] [address], [place] [address] March, [facility] [address] [id number] [address] [place] [address], [place] [address] Feb, [facility] [address] [id number] [address] [place] [address], [place] [address] Feb, [facility] [address] [id number] [address] [place] [address], [place] [address] Feb, [facility] [address] [id number] [address] [place] [address], [place] [id number] Feb, [facility] [address] [id number] [address] [place] [address], [place] [address] Feb, [facility] [address] [id number] [address] [place] [address], [place] [address] Feb, [facility] [address] [id number] [address] [place] [address], [place] [address] Feb, [facility] [address] [id number] [address] [place] [address], [place] [address] Feb, [facility] [address] [id number] [address] [place] [address], [place] [address] Jan, [facility] [address] [id number] [address] [place] [address], [place] [id number] Jan, [facility] [address] [id number] [address] [place] [address], [place] [id number] Jan, [facility] [address] [id number] [address] [place] [address], [place] [id number] 24 Jan, 2014 [facility] [address] [id number] [facility] [place] [id number] 13 Jan, 2014 [facility] [address] [id number] [facility] [place] [id number] 13 Jan, 2014 [facility] [address] [id number] [address] [place] [address], [place] [id number] Jan, [facility] [address] [id number] [address] [place] [address], [place] [id number] Jan, [facility] [address] [id number] [address] [place] [address], [place] [id number] Jan, [facility] [address] [id number] [address] [place] [address], [place] [id number] Jan, [facility] [address] [id number] [address] [place] [address], [place] [id number] 27 Dec, 2013 [facility] [address] [id number] [address] [place] [address], [place] [id number] 26 Dec, 2013 [facility] [address] [id number] [address] [place] [address], [place] [id number] 26 Dec, 2013 [facility] [address] [id number] [address] [place] [address], [place] [id number] 2013 [facility] [address] [id number] [address] [place] [address] [id number] 2013 [facility] [address] [id number] [address] [place] [address], [place] [id number] 13 Dec, 2013 [facility] [address] [id number] [address] [place] [address], [place] [id number] Dec, [facility] [address] [id number] [address] [place] [address], [place] [address] Dec, [facility] [address] [id number] [address] [place] [address], [place] [id number] Nov, [facility] [address] [id number] [address] [place] [address], [place] [id number] Nov, [facility] [address] [id number] [address] [place] [address], [place] [id number] Nov, [facility] [address] [id number] [address] [place] [address], [place] [id number] Nov, [facility] [address] [id number] [address] [place] [address], [place] [id number] Nov, [facility] [address] [id number] [address] [place] [address], [place] [id number] Nov, [facility] [address] [id number] [address] [place] [address], [place] [id number] Nov, [facility] [address] [id number] [address] [place] [address], [place] [id number] Nov, [facility] [address] [id number] [address] [place] [address], [place] [id number] Nov, [facility] [address] [id number] [address] [place] [address], [place] [id number] Nov, [facility] [address] [id number] [address] [place] [address], [place] [id number] Nov, [facility] [address] [id number] [address] [place] [address], [place] [id number] Nov, [facility] [address] [id number] [address] [place] [address], [place] [id number] Nov, [facility] [address] [id number] [address] [place] [address], [place] [id number] Oct, [facility] [address] [id number] [address] [place] [address], [place] [id number] Oct, [facility] [address] [id number] [address] [place] [address], [place] [id number] Oct, [facility] [address] [id number] [address] [place] [address], [place] [id number] 26 Oct, 2013 [facility] [address] [id number] [address] [place] [address], [place] [id number] Oct, [facility] [address] [id number] [address] [place] [address], [place] [address] Oct, [facility] [address] [id number] [address] [place] [address], [place] [id number] 18 Oct, 2013 [facility] [address] [id number] [address] [place] [address], [place] [id number] 18 Oct, 2013 [facility] [address] [id number] [address] [place] [address], [place] [id number] Oct, [facility] [address] [id number] [address] [place] [address], [place] [id number] Oct, [facility] [address] [id number] [address] [place] [address], [place] [id number] Oct, [facility] [address] [id number] [address] [place] [address], [place] [id number] Oct, [facility] [address] [id number] [address] [place] [address], [place] [id number] 02 Oct, 2013 [facility] [address] [id number] [address] [place] [address], [place] [id number] 02 Oct, 2013 [facility] [address] [id number] [address] [place] [address], [place] [id number] 14 Sep, 2013 [facility] [address] [id number] [address] [place] [address], [place] [id number] 14 Sep, 2013 [facility] [address] [id number] [address] [place] [address], [place] [id number] 05 Sep, 2013 [facility] [address] [id number] [address] [place] [address], [place] [id number] 05 Sep, 2013 [facility] [address] [id number] [address] [place] [address], [place] [id number] 04 Sep, 2013 [facility] [address] [id number] [address] [place] [address], [place] [id number] Sep, [facility] [address] [id number] [address] [place] [address], [place] [id number] Sep, [facility] [address] [id number] [address] [place] [address], [place] [id number] Sep, [facility] [address] [id number] [address] [place] [address], [place] [id number] Sep, [facility] [address] [id number] [address] [place] [address], [place] [id number] Sep, [facility] [address] [id number] [address] [place] [address], [place] [id number] Aug, [facility] [address] [id number] [address] [place] [address], [place] [id number] Aug, [facility] [address] [id number] [address] [place] [address], [place] [address] Aug, [facility] [address] [id number] [address] [place] [address], [place] [address] Aug, [facility] [address] [id number] [address] [place] [address], [place] [id number] Aug, [facility] [address] [id number] [address] [place] [address], [place] [address] Aug, [facility] [address] [id number] [address] [place] [address], [place] [address] Aug, [facility] [address] [id number] [address] [place] [address], [place] [id number] Aug, [facility] [address] [id number] [address] [place] [address], [place] [address] Aug, [facility] [address] [id number] [address] [place] [address], [place] [id number] Aug, [facility] [address] [id number] [address] [place] [address], [place] [id number] 18 Aug, 2013 [facility] [address] [id number] [address] [place] [address], [place] [address] 18 Aug, 2013 [facility] [address] [id number] [address] [place] [address], [place] [address] 18 Aug, 2013 [facility] [address] [id number] [address] [place] [address], [place] [id number] 18 Aug, 2013 [facility] [address] [id number] [address] [place] [address], [place] [id number] 17 Aug, 2013 [facility] [address] [id number] [address] [place] [address], [place] [id number] 14 Aug, 2013 [facility] [address] [id number] [address] [place] [address], [place] [id number] 14 Aug, 2013 [facility] [address] [id number] [address] [place] [address], [place] [address] Aug, [facility] [address] [id number] [address] [place] [address], [place] [id number] 20 Jul, 2013 [facility] [address] [id number] [address] [place] [address], [place] [id number] 19 Jul, 2012 [facility] [address] [id number] [address] [place] [address], [place] [id number] 18 Jul, 2013 [facility] [address] [id number] [address] [place] [address], [place] [id number] 11 Jul, 2013 [facility] [address] [id number] [address] [place] [address], [place] [address] 11 Jul, 2013 [facility] [address] [id number] [address] [place] [address], [place] [address] Jun, [facility] [address] [id number] [address] [place] [address], [place] [id number] Jun, [facility] [address] [id number] [address] [place] [address], [place] [address] Jun, [facility] [address] [id number] [address] [place] [address], [place] [address] 15 Jun, 2013 [facility] [address] [id number] [address] [place] [address], [place] [address] Jun, [facility] [address] [id number] [address] [place] [address], [place] [id number] Jun, [facility] [address] [id number] [address] [place] [address], [place] [address] Jun, [facility] [address] [id number] [address] [place] [address], [place] [address] Jun, [facility] [address] [id number] [address] [place] [address], [place] [address] Jun, [facility] [address] [id number] [address] [place] [address], [place] [address] Jun, [facility] [address] [id number] [address] [place] [address], [place] [address] May, [facility] [address] [id number] [address] [place] [address], [place] [address] May, [facility] [address] [id number] [address] [place] [address], [place] [address] May, [facility] [address] [id number] [address] [place] [address], [place] [address] May, [facility] [address] [id number] [address] [place] [address], [place] [address] May, [facility] [address] [id number] [address] [place] [address], [place] [address] 16 May, 2013 [facility] [address] [id number] [address] [place] [address], [place] [id number] May, [facility] [address] [id number] [address] [place] [address], [place] [address] May, [facility] [address] [id number] [address] [place] [address], [place] [address] May, [facility] [address] [id number] [address] [place] [address], [place] [address] Apr, [facility] [address] [id number] [address] [place] [address], [place] [address] Apr, [facility] [address] [id number] [address] [place] [address], [place] [address] Apr, [facility] [address] [id number] [address] [place] [address], [place] [address] Apr, [facility] [address] [id number] [address] [place] [address], [place] [address] Apr, [facility] [address] [id number] [address] [place] [address], [place] [address] Apr, [facility] [address] [id number] [address] [place] [address], [place] [address] Apr, [facility] [address] [id number] [address] [place] [address], [place] [address] March, [facility] [address] [id number] [address] [place] [address], [place] [address] Feb, [facility] [address] [id number] [address] [place] [address], [place] [address] Feb, [facility] [address] [id number] [address] [place] [address], [place] [address] Feb, [facility] [address] [id number] [address] [place] [address], [place] [id number] 28 Jan, 2013 [facility] [address] [id number] [address] [place] [address], [place] [address] Jan, [facility] [address] [id number] [address] [place] [address], [place] [id number] 19 Jan, 2013 [facility] [address] [id number] [address] [place] [address], [place] [address] 14 Jan, 2013 [facility] [address] [id number] [address] [place] [address], [place] [id number] 12 Jan, 2013 [facility] [address] [id number] [address] [place] [address], [place] [address] 08 Jan, 2013 [facility] [address] [id number] [address] [place] [address], [place] [address] 07 Jan, 2013 [facility] [address] [id number] [address] [place] [address], [place] [id number] 04 Jan, 2013 [facility] [address] [id number] [address] [place] [address], [place] [address] 28 Dec, 2012 [facility] [address] [id number] [address] [place] [address], [place] [address] 25 Dec, 2012 [facility] [address] [id number] [address] [place] [address], [place] [id number] 13 Dec, 2012 [facility] [address] [id number] [address] [place] [address], [place] [address] 11 Dec, 2012 [facility] [address] [id number] [address] [place] [address], [place] [id number] 07 Dec, 2012 [facility] [address] [id number] [address] [place] [address], [place] [address] 06 Dec, 2012 [facility] [address] [id number] [address] [place] [address], [place] [address] 05 Dec, 2012 [facility] [address] [id number] [address] [place] [address], [place] [id number] 31 Nov, 2012 [facility] [address] [id number] [address] [place] [address], [place] [address] 24 Nov, 2012 [facility] [address] [id number] [address] [place] [address], [place] [id number] 18 Nov, 2012 [facility] [address] [id number] [address] [place] [address], [place] [id number] 15 Nov, 2012 [facility] [address] [id number] [address] [place] [address], [place] [address] Nov, [facility] [address] [id number] [address] [place] [address], [place] [address] Nov, [facility] [address] [id number] [address] [place] [address], [place] [address] Nov, [facility] [address] [id number] [address] [place] [address], [place] [address] Oct, [facility] [address] [id number] [address] [place] [address], [place] [address] Oct, [facility] [address] [id number] [address] [place] [address], [place] [id number] Oct, [facility] [address] [id number] [address] [place] [address], [place] [address] Oct, [facility] [address] [id number] [address] [place] [address], [place] [id number] Oct, [facility] [address] [id number] [address] [place] [address], [place] [address] Oct, [facility] [address] [id number] [address] [place] [address], [place] [address] Oct, [facility] [address] [id number] [address] [place] [address], [place] [address] Oct, [facility] [address] [id number] [address] [place] [address], [place] [address] Oct, [facility] [address] [id number] [address] [place] [address], [place] [id number] Oct, [facility] [address] [id number] [address] [place] [address], [place] [id number] Oct, [facility] [address] [id number] [address] [place] [address], [place] [address] Oct, [facility] [address] [id number] [address] [place] [address], [place] [id number] Sep, [facility] [address] [id number] [address] [place] [id number] Sep, [facility] [address] [id number] [address] [place] [address], [place] [address] Sep, [facility] [address] [id number] [address] [place] [id number] Sep, [facility] [address] [id number] [address] [place] [address], [place] [address] Sep, [facility] [address] [id number] [address] [place] [address] Sep, [facility] [address] [id number] [address] [place] [address], [place] [address] Sep, [facility] [address] [id number] [address] [place] [address], [place] [address] Sep, [facility] [address] [id number] [address] [place] [address] Sep, [facility] [address] [id number] [address] [place] [id number] Sep, [facility] [address] [id number] [address] [place] [id number] Sep, [facility] [address] [id number] [address] [place] [address] Aug, [facility] [address] [id number] [address] [place] [id number] Aug, [facility] [address] [id number] [address] [place] [id number] Aug, [facility] [address] [id number] [address] [place] [address] Aug, [facility] [address] [id number] [address] [place] [id number] Aug, [facility] [address] [id number] [address] [place] [address], [place] [id number] Aug, [facility] [address] [id number] [address] [place] [address], [place] [id number] Aug, [facility] [address] [id number] [address] [place] [address], [place] [address] Aug, [facility] [address] [id number] [address] [place] [address], [place] [address] Aug, [facility] [address] [id number] [address] [place] [address], [place] [address] Aug, [facility] [address] [id number] [address] [place] [address], [place] [address] 22 Jul, 2012 [facility] [address] [id number] [address] [place] [address], [place] [id number] 20 Jul, 2012 [facility] [address] [id number] [address] [place] [address], [place] [id number] 10 Jul, 2012 [facility] [address] [id number] [address] [place] [address], [place] [id number] Jul, [facility] [address] [id number] [address] [place] [address], [place] [address] 30 Jun, 2012 [facility] [address] [id number] [address] [place] [address], [place] [id number] Jun, [facility] [address] [id number] [address] [place] [address], [place] [id number] 16 Jun, 2012 [facility] [address] [id number] [address] [place] [address], [place] [address] Jun, [facility] [address] [id number] [address] [place] [address], [place] [id number] Jun, [facility] [address] [id number] [address] [place] [address], [place] [id number] Jun, [facility] [address] [id number] [address] [place] [address], [place] [id number] Jun, [facility] [address] [id number] [address] [place] [address], [place] [address] May, [facility] [address] [id number] [address] [place] [address], [place] [address] May, [facility] [address] [id number] [address] [place] [address], [place] [address] May, [facility] [address] [id number] [address] [place] [address], [place] [address] May, [facility] [address] [id number] [address] [place] [address], [place] [address] May, [facility] [address] [id number] [address] [place] [address], [place] [address] Apr, [facility] [address] [id number] [address] [place] [address], [place] [address] Apr, [facility] [address] [id number] [address] [place] [address], [place] [address] Apr, [facility] [address] [id number] [address] [place] [address], [place] [id number] Apr, [facility] [address] [id number] [address] [place] [address], [place] [address] Apr, [facility] [address] [id number] [address] [place] [address], [place] [address] March, [facility] [address] [id number] [address] [place] [address], [place] [id number] March, [facility] [address] [id number] [address] [place] [address], [place] [id number] March, [facility] [address] [id number] [address] [place] [address], [place] [address] March, [facility] [address] [id number] [address] [place] [address], [place] [id number] March, [facility] [address] [id number] [address] [place] [address], [place] [address] March, [facility] [address] [id number] [address] [place] [address], [place] [address] March, [facility] [address] [id number] [address] [place] [address], [place] [address] March, [facility] [address] [id number] [address] [place] [address], [place] [id number] March, [facility] [address] [id number] [address] [place] [address], [place] [id number] March, [facility] [address] [id number] [address] [place] [address], [place] [address] Feb, [facility] [address] [id number] [address] [place] [address], [place] [address] Feb, [facility] [address] [id number] [address] [place] [address], [place] [address] Feb, [facility] [address] [id number] [address] [place] [address], [place] [address] Feb, [facility] [address] [id number] [address] [place] [address], [place] [address] Feb, [facility] [address] [id number] [address] [place] [address], [place] [address] Feb, [facility] [address] [id number] [address] [place] [address], [place] [address] Feb, [facility] [address] [id number] [address] [place] [address], [place] [id number] Feb, [facility] [address] [id number] [address] [place] [address], [place] [address] Feb, [facility] [address] [id number] [address] [place] [address], [place] [id number] Jan, [facility] [address] [id number] [address] [place] [address], [place] [address] Jan, [facility] [address] [id number] [address] [place] [address], [place] [id number] Jan, [facility] [address] [id number] [address] [place] [address], [place] [id number] Jan, [facility] [address] [id number] [address] [place] [address], [place] [id number] Dec, [facility] [address] [id number] [address] [place] [address], [place] [id number] Dec, [facility] [address] [id number] [address] [place] [address], [place] [id number] Nov, [facility] [address] [id number] [address] [place] [address], [place] [address] Nov, [facility] [address] [id number] [address] [place] [address], [place] [id number] Nov, [facility] [address] [id number] [address] [place] [address], [place] [address] Nov, [facility] [address] [id number] [address] [place] [address], [place] [address] Nov, [facility] [address] [id number] [address] [place] [address], [place] [address] Oct, [facility] [address] [id number] [address] [place] [address], [place] [id number] Oct, [facility] [address] [id number] [address] [place] [address], [place] [id number] Oct, [facility] [address] [id number] [address] [place] [address], [place] [id number] Oct, [facility] [address] [id number] [address] [place] [address], [place] [id number] Oct, [facility] [address] [id number] [address] [place] [address], [place] [id number] Oct, [facility] [address] [id number] [address] [place] [address], [place] [id number] Oct, [facility] [address] [id number] [address] [place] [address], [place] [id number] Oct, [facility] [address] [facility] [place] [id number] [address] [place] [address] Sep, IMMUNIZATIONS No Known Immunizations SOCIAL HISTORY Never Assessed REASON FOR VISIT PLAN OF CARE VITAL SIGNS MEDICATIONS No Known Medications RESULTS No Results PROCEDURES No Known procedures INSTRUCTIONS MEDICATIONS ADMINISTERED No Known Medications MEDICAL (GENERAL) HISTORY Type Description Date Medical History aortic abdominal aneurysm moderate 04/06 18 Medical History illiac aneurysm 03/2018 Surgical History No Surgical history information Hospitalization History [facility] Urosepsis, ab d pain and fever, discharged 11/27/2017 11/26/2017 Hospitalization History [facility]- Went Unrepsonsive, Hit head 2017 Hospitalization History [facility]- Back Pain 05/05/ 8
--- OUTSIDE RECORDS SUMMARY | 2020-06-18 15:08 | XMS REPORT ---
Author Author Sanjuanita JOHNSON [facility] Address [address] [place] [address] Care Team Providers Care Object Oriented Programmer Name Role Phone ELIZABETHROYASHARIF Unavailable PROBLEMS Type Condition ICD9-CM Code SHB08-NT Code Onset Dates Condition S tatus SNOMED Code Problem Coronary artery disease I25.10 Active 97032257 Problem Hypertension I10 Active 8120405 3 Problem Other chronic pain G89.29 Active 8 5560276 Problem Hyperlipidemia E78.5 Active 72018 004 Problem Type 2 diabetes mellitus wit hout complication, without long-term current use of insulin E11.9 Active 115522285 Problem Low back pain M54.5 Active 276700 009 Problem Pharyngeal dysphagia R13.13 Active [id number] Problem Anxiety F41.9 Active 69868846 Problem Peripheral vascular disease I73.9 Ac tive 731374890 Problem Suprapubic catheter Z93.59 Active 693229046 Problem Reactive depression F32.9 Active 66167771 Problem Neurogenic bladder N31.9 Active 3 59452082 Problem Ventral hernia without obstruction or gangrene K43 .9 Active 142251933 Problem Insomnia G47.00 Active 740731030 Problem Paroxysmal atrial fibrillation I48.0 Active 764362506 Problem Postmenopausal atrophic vaginitis N95.2 Active 08322436 Problem Encounter for suprapubic catheter care Z43.5 Active 606041425 ALLERGIES No Information ENCOUNTERS Encounter Location Date Diagnosis Via [facility] [address] [place] [id number] Aug, Suprapubic catheter Z93.59 [facility] [address] [facility] [id number] [address] [place] [phone] 10 Jul, 2019 Strain of right shoulder, scherer bsequent encounter S46.911D and Anxiety F41.9 [facility] [address] [facility] [id number] [address] [place] [phone] Jul, Anxiety F41.9 [facility] [address] [id number] [address] [place] [phone] Jun, [facility] [address] [id number] [address] [place] [phone] Jun, [facility] [address] [id number] [address] [place] [phone] Jun, [facility] [address] [id number] [address] [place] [phone] Jun, Strain of right shoulder, scherer bsequent encounter S46.911D [place] [address] [id number] [address] [place] [phone] Jun, Strain of right shoulder, scherer bsequent encounter S46.911D [place] [address] [id number] [address] [place] [phone] Jun, Anxiety F41.9 [facility] [address] [place] [id number] Jun, Neurogenic bladder N31.9 and Anxiety F41 .9 [facility] [address] [place] [id number] May, Anxiety F41.9 [place] [address] [id number] [address] [place] [address] May, Dysuria R30.0 [place] [address] [id number] [address] [place] [phone] May, Strain of right shoulder, scherer bsequent encounter S46.911D and Anxiety F41.9 [place] [address] [id number] [address] [place] [id number] Apr, Via [facility] [address] [place] [id number] Apr, Strain of right shoulder, subsequent enc ounter S46.911D [place] [address] [id number] [address] [place] [id number] 14 Apr, 2019 Strain of right shoulder, scherer bsequent encounter S46.911D and Anxiety F41.9 Via [facility] [employer] [address] [place] [id number] 13 Apr, 2019 Type 2 diabetes mellitus without complic ation, without long-term current use of insulin E11.9 and Neurogenic bladder N31.9 [facility] [employer] [address] [place] [id number] 11 Apr, 2019 Strain of right shoulder, subsequent enc ounter S46.911D ; History of GI bleed Z87.19 ; Neurogenic bladder N31.9 and Reactive depression F32.9 [place] [address] [id number] [address] [place] [id number] 10 Apr, 2019 Acute pain of left shoulder M25.512 [place] [address] [id number] [address] [place] [phone] Apr, [place] [address] [id number] [address] [place] [phone] Apr, Anxiety F41.9 and 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 [facility] [address] [place] [id number] March, Gastrointestinal hemorrhage associated w ith acute gastritis K29.01 [place] [address] [id number] [address] [place] [phone] March, Via [facility] [employer] [address] [place] [id number] March, Bronchitis J40 [facility] [address] [id number] [address] [place] [phone] March, Cough R05 [place] [address] [id number] [address] [place] [phone] March, Other chronic pain G89.29 [facility] [address] [id number] [address] [place] [phone] March, Anxiety F41.9 [place] [address] [id number] [address] [place] [phone] March, [facility] [address] [id number] [address] [place] [phone] Feb, Other chronic pain G89.29 [facility] [address] [id number] [address] [place] [id number] Feb, Anxiety F41.9 [facility] [address] [id number] [address] [place] [address] Feb, Other chronic pain G89.29 Via [facility] [address] [place] [id number] Feb, Neurogenic bladder N31.9 and Suprapubic catheter Z93.59 [facility] [address] [id number] [address] [place] [phone] Jan, Anxiety F41.9 [facility] [address] [id number] [address] [place] [id number] Dec, Anxiety F41.9 [facility] [address] [id number] [address] [place] [phone] Dec, Other chronic pain G89.29 an d Anxiety F41.9 [facility] [address] [id number] [address] [place] [phone] Dec, Via [facility] [address] [place] [id number] Dec, Neurogenic bladder N31.9 and Suprapubic catheter Z93.59 [facility] [address] [id number] [address] [place] [phone] Nov, Other chronic pain G89.29 an d Anxiety F41.9 [facility] [address] [id number] [address] [place] [phone] Nov, Via [facility] [address] [place] [id number] Nov, Suprapubic catheter Z93.59 [facility] [address] [id number] [address] [place] [phone] 31 Oct, 2018 Other chronic pain G89.29 an d Anxiety F41.9 [facility] [address] [id number] [address] [place] [phone] Oct, [facility] [address] [id number] [address] [place] [id number] Oct, Suprapubic catheter Z93.59 [facility] [address] [id number] [address] [place] [phone] Oct, Via [facility] [address] [place] [id number] Oct, [facility] [address] [id number] [address] [place] [phone] Oct, Anxiety F41.9 [place] [address] [id number] [address] [place] [phone] Oct, Anxiety F41.9 [facility] [address] [place] [id number] Oct, Other chronic pain G89.29 [place] [address] [id number] [address] [place] [id number] 14 Sep, 2018 Other chronic pain G89.29 Via [facility] [address] [place] [id number] Sep, Suprapubic catheter Z93.59 and Cervicalg ia M54.2 [facility] [address] [id number] [address] [place] [phone] Sep, [facility] [address] [id number] [address] [place] [phone] Sep, [facility] [address] [id number] [address] [place] [phone] Sep, Via [facility] [address] [place] [id number] Aug, Cystitis N30.90 [facility] [address] [id number] [address] [place] [id number] Aug, [facility] [address] [id number] [address] [place] [phone] Aug, Other chronic pain G89.29 [facility] [address] [id number] [address] [place] [phone] Aug, Via [employer] [address] [place] [id number] Aug, Encounter for suprapubic catheter care Z 43.5 [facility] [address] [id number] [address] [place] [phone] 20 Jul, 2018 Via [employer] [address] [place] [id number] Jul, [facility] [address] [id number] [address] [place] [phone] Jul, Other chronic pain G89.29 [facility] [address] [id number] [address] [place] [id number] Jul, [facility] [address] [id number] [address] [place] [id number] Jul, Via [employer] [address] [place] [id number] Jun, Postmenopausal atrophic vaginitis N95.2 [facility] [address] [id number] [address] [place] [id number] Jun, Other chronic pain G89.29 [facility] [address] [id number] [address] [place] [phone] Jun, Via [employer] [address] [place] [id number] May, Anxiety F41.9 ; Type 2 diabetes mellitus without complication, without long-term current use of insulin E11.9 ; Hypertension I10 ; Low back pain M54.5 ; Paroxysmal atrial fibrillation I48.0 and 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 [facility] [address] [id number] [address] [place] [phone] May, Other chronic pain G89.29 [facility] [facility] [address] [place] [id number] May, Low back pain M54.5 [facility] [address] [id number] [address] [place] [phone] May, [facility] [address] [id number] [address] [place] [id number] Apr, Other chronic pain G89.29 [facility] [address] [id number] [address] [place] [phone] Apr, [facility] [address] [id number] [address] [place] [phone] Apr, Via [employer] [address] [place] [id number] Apr, Closed compression fracture of L3 lumbar vertebra with routine healing, subsequent encounter S32.030D [facility] [employer] [address] [place] [id number] Apr, Low back pain M54.5 Via [facility] [employer] [address] [place] [id number] Apr, Coccydynia M53.3 [facility] [address] [id number] [address] [place] [phone] March, [facility] [address] [id number] [address] [place] [id number] March, Other chronic pain G89.29 [facility] [address] [id number] [address] [place] [id number] March, [facility] [address] [id number] [address] [place] [phone] March, [facility] [address] [id number] [address] [place] [phone] Feb, [facility] [address] [id number] [address] [place] [phone] Feb, Other chronic pain G89.29 Via [facility] [address] [place] [id number] Feb, Other chronic pain G89.29 and Anxiety F4 1.9 [facility] [address] [facility] [id number] [address] [place] [phone] Feb, [facility] [address] [facility] [id number] [address] [place] [phone] Jan, [facility] [address] [facility] [id number] [address] [place] [phone] Jan, [facility] [address] [facility] [id number] [address] [place] [phone] Jan, [facility] [address] [facility] [id number] [address] [place] [phone] Jan, [facility] [address] [facility] [id number] [address] [place] [phone] Dec, Via [facility] [address] [place] [id number] Dec, Peripheral vascular disease I73.9 ; 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 ; Other chronic pain G89.29 ; Anxiety F41.9 ; Reactive depression F32.9 ; Insomnia G47.00 and Type 2 diabetes mellitus without complication, without long-term current use of insulin E11.9 [facility] [address] [id number] [address] Nov, [facility] [address] [id number] [place] [id number] Nov, Anxiety F41.9 [facility] [address] [facility] [id number] [address] [place] [phone] Nov, [facility] [address] [id number] [place] [id number] Nov, Anxiety F41.9 Via [facility] [address] [place] [id number] Nov, Status post surgery Z98.890 ; Confused R 41.0 ; Anxiety F41.9 and Other chronic pain G89.29 [facility] [address] [id number] [place] [id number] Nov, Other chronic pain G89.29 [facility] [address] [id number] [address] [place] [phone] Oct, [facility] [address] [id number] [place] [id number] Oct, Other chronic pain G89.29 [facility] [address] [id number] [address] [place] [address] Oct, Anxiety F41.9 [facility] [address] [id number] [place] [id number] Sep, Other chronic pain G89.29 [facility] [address] [id number] [place] [id number] Sep, Via [facility] [address] [place] [id number] Aug, Dysuria R30.0 and Anxiety F41.9 [facility] [address] [facility] [id number] [address] [place] [phone] Aug, [facility] [address] [id number] [place] [id number] Aug, Other chronic pain G89.29 [facility] [address] [id number] [address] [place] [address] Jul, Other chronic pain G89.29 [facility] [address] [id number] [place] [id number] Jun, [facility] [address] [id number] [place] [id number] Jun, Other chronic pain G89.29 [facility] [address] [facility] [id number] [address] [place] [phone] Jun, [facility] [address] [facility] [id number] [address] [place] [phone] May, Other chronic pain G89.29 [facility] [address] [facility] [id number] [address] [place] [address] Apr, Other chronic pain G89.29 Via [facility] [address] [place] [id number] Apr, Reactive depression F32.9 and Pharyngeal dysphagia R13.13 [facility] [address] [facility] [id number] [address] [place] [phone] Apr, Urinary tract infection with out hematuria, site unspecified N39.0 [place] [address] [facility] [id number] [address] [place] [address] March, Other chronic pain G89.29 [place] [address] [facility] [id number] [address] [place] [phone] Feb, Other chronic pain G89.29 [facility] [address] [facility] [id number] [address] [place] [phone] Feb, [facility] [place] [id number] [place] [id number] Feb, Via [facility] [address] [place] [id number] Feb, Dysuria R30.0 and Ventral hernia without obstruction or gangrene K43.9 [facility] [address] [facility] [id number] [address] [place] [phone] Jan, Other chronic pain G89.29 [facility] [address] [id number] [place] [id number] Dec, Other chronic pain G89.29 [facility] [address] [facility] [id number] [address] [place] [phone] Nov, Other chronic pain G89.29 [facility] [employer] [address] [place] [id number] Nov, Lymphadenitis I88.9 [facility] [address] [id number] [address] [place] [address] Nov, Other chronic pain G89.29 [facility] [address] [id number] [address] [place] [phone] Nov, [facility] [address] [id number] [place] [id number] Nov, Other chronic pain G89.29 Via [facility] [address] [facility] [place] [place] [id number] Oct, Low back pain M54.5 ; Hypertension I10 a nd Type 2 diabetes mellitus without complication, without long-term current use of insulin E11.9 [facility] [address] [id number] [address] [place] [phone] Oct, [facility] [address] [id number] [address] [place] [phone] Oct, [facility] [address] [id number] [address] [place] [phone] Oct, [facility] [address] [id number] [address] [place] [phone] Oct, [facility] [address] [id number] [address] [place] [phone] Sep, [facility] [address] [id number] [address] [place] [phone] Sep, [facility] [address] [id number] [address] [place] [phone] Aug, Other chronic pain G89.29 [facility] [address] [id number] [address] [place] [id number] Jul, [facility] [address] [id number] [address] [place] [phone] Jul, [facility] [address] [id number] [address] [place] [phone] Jul, [facility] [address] [id number] [address] [place] [address] 16 Jun, 2016 [facility] [address] [id number] [address] [place] [phone] Jun, Via [facility] [address] [place] [id number] Jun, Low back pain M54.5 ; Other chronic pain G89.29 and Coronary artery disease I25.10 [facility] [address] [id number] [address] [place] [id number] 08 Jun, 2016 [facility] [address] [id number] [address] [place] [phone] May, [facility] [address] [id number] [address] [place] [phone] May, [facility] [address] [id number] [address] [place] [phone] May, Other chronic pain G89.29 [facility] [address] [id number] [address] [place] [phone] May, [facility] [address] [id number] [address] [place] [id number] Apr, [facility] [address] [id number] [address] [place] [phone] Apr, Acute cystitis without hemat uria N30.00 [facility] [address] [id number] [address] [place] [address] Apr, Acute cystitis without hemat uria N30.00 ; Coronary artery disease I25.10 ; Low back pain M54.5 and Other chronic pain G89.29 [facility] [address] [id number] [address] [place] [phone] Apr, Other chronic pain G89.29 [facility] [address] [id number] [address] [place] [id number] March, Other chronic pain G89.29 [facility] [address] [id number] [address] [place] [phone] 18 Feb, 2016 [facility] [address] [id number] [address] [place] [phone] 15 Feb, 2016 Arthritis M19.90 [facility] [address] [id number] [address] [place] [phone] 13 Feb, 2016 [facility] [address] [facility] [id number] [address] [place] [id number] 30 Jan, 2016 [facility] [address] [id number] [address] [place] [phone] Jan, [facility] [address] [facility] [id number] [address] [place] [phone] Jan, Other chronic pain G89.29 [facility] [address] [facility] [id number] [address] [place] [phone] Jan, Hypertension I10 ; Coronary artery disease I25.10 and Insomnia G47.00 [facility] [address] [facility] [id number] [address] [place] [phone] Jan, [facility] [address] [facility] [id number] [address] [place] [phone] Dec, Right hip pain M25.551 [facility] [address] [facility] [id number] [address] [place] [phone] Dec, [facility] [address] [id number] [address] [place] [phone] Dec, [facility] [address] [facility] [id number] [address] [place] [phone] Dec, [facility] [address] [facility] [id number] [address] [place] [phone] Dec, Other chronic pain G89.29 [facility] [address] [facility] [id number] [address] [place] [phone] Dec, [facility] [address] [id number] [address] [place] [phone] Nov, [facility] [address] [id number] [address] [place] [phone] Nov, Other chronic pain G89.29 [facility] [address] [id number] [address] [place] [phone] Nov, Right hip pain M25.551 and C oronary artery disease I25.10 [facility] [address] [id number] [address] [place] [phone] Nov, Other chronic pain G89.29 [facility] [address] [id number] [address] [place] [phone] Oct, [facility] [address] [id number] [address] [place] [phone] Oct, [facility] [address] [id number] [address] [place] [phone] Sep, [facility] [address] [id number] [address] [place] [phone] Sep, [facility] [address] [id number] [address] [place] [phone] Aug, [facility] [address] [facility] [id number] [address] [place] [id number] Aug, Hypertension I10 ; Coronary artery disease I25.10 and Arthritis M19.90 [facility] [address] [id number] [address] [place] [phone] Jun, [facility] [address] [id number] [address] [place] [phone] Jun, Essential hypertension, jayson gn 401.1 ; Other chronic pain 338.29 and Chronic airway obstruction, not elsewhere classified 496 [facility] [address] [id number] [address] [place] [phone] Jun, [facility] [address] [id number] [address] [place] [phone] Jun, [facility] [address] [id number] [address] [place] [address], [place] [phone] Jun, [facility] [address] [id number] [address] [place] [address], [place] [phone] May, [facility] [facility] [address] [id number] [address] [place] [address], [place] [address] May, [facility] [address] [id number] [address] [place] [address], [place] [id number] Apr, [facility] [address] [id number] [address] [place] [address], [place] [address] Apr, [facility] [address] [id number] [address] [place] [address], [place] [address] Apr, [facility] [address] [id number] [address] [place] [address], [place] [address] March, [facility] [address] [id number] [address] [place] [address], [place] [address] March, [facility] [address] [id number] [address] [place] [address], [place] [address] March, [facility] [address] [id number] [address] [place] [address], [place] [address] March, [facility] [address] [id number] [address] [place] [address], [place] [address] March, Sialadenitis 527.2 [facility] [address] [id number] [address] [place] [address], [place] [address] Feb, [facility] [address] [id number] [address] [place] [address], [place] [address] Feb, [facility] [address] [id number] [address] [place] [address], [place] [address] Feb, [facility] [address] [id number] [address] [place] [address], [place] [address] Feb, [facility] [address] [id number] [address] [place] [address], [place] [address] Feb, [facility] [address] [id number] [address] [place] [address], [place] [address] Jan, [facility] [address] [id number] [address] [place] [address], [place] [address] Jan, [facility] [address] [id number] [address] [place] [address], [place] [id number] Jan, [facility] [address] [id number] [address] [place] [address], [place] [address] Jan, [facility] [address] [id number] [address] [place] [address], [place] [address] Jan, [facility] [address] [id number] [address] [place] [address], [place] [address] Jan, [facility] [address] [id number] [address] [place] [address], [place] [id number] Dec, [facility] [address] [id number] [address] [place] [address], [place] [address] Dec, [facility] [address] [id number] [address] [place] [address], [place] [address] Dec, [facility] [address] [id number] [address] [place] [address], [place] [address] Dec, [facility] [address] [id number] [address] [place] [address], [place] [address] Dec, [facility] [address] [id number] [address] [place] [address], [place] [address] Dec, [facility] [address] [id number] [address] [place] [address], [place] [address] Nov, [facility] [address] [id number] [address] [place] [address], [place] [address] Nov, [facility] [address] [id number] [address] [place] [address] Nov, [facility] [address] [id number] [address] [place] [address], [place] [address] Nov, [facility] [address] [id number] [address] [place] [address], [place] [address] Nov, [facility] [address] [id number] [address] [place] [address], [place] [address] Nov, [facility] [address] [id number] [address] [place] [address], [place] [address] Nov, [facility] [address] [id number] [address] [place] [address], [place] [address] Nov, [facility] [address] [id number] [address] [place] [address], [place] [address] Nov, [facility] [address] [id number] [address] [place] [address], [place] [address] Nov, [facility] [address] [id number] [address] [place] [address], [place] [address] Nov, [facility] [address] [id number] [address] [place] [address], [place] [address] Nov, [facility] [address] [id number] [address] [place] [address], [place] [address] Nov, [facility] [address] [id number] [address] [place] [address], [place] [address] Nov, [facility] [address] [id number] [address] [place] [address], [place] [address] Oct, [facility] [address] [id number] [address] [place] [address], [place] [address] Oct, [facility] [address] [id number] [address] [place] [address], [place] [address] Oct, [facility] [address] [id number] [address] [place] [address], [place] [address] Oct, [facility] [address] [id number] [address] [place] [address], [place] [address] 18 Oct, 2014 [facility] [address] [id number] [address] [place] [address], [place] [address] Oct, [facility] [address] [id number] [address] [place] [address], [place] [address] Oct, [facility] [address] [id number] [address] [place] [address], [place] [address] Oct, [facility] [address] [id number] [address] [place] [address], [place] [address] Oct, [facility] [address] [id number] [address] [place] [address], [place] [address] Sep, [facility] [address] [id number] [address] [place] [address], [place] [address] Sep, [facility] [address] [id number] [address] [place] [address], [place] [address] Sep, [facility] [address] [id number] [address] [place] [address], [place] [address] Sep, [facility] [address] [id number] [address] [place] [address], [place] [address] Sep, [facility] [address] [id number] [address] [place] [address], [place] [address] Sep, [facility] [address] [id number] [address] [place] [address], [place] [address] Sep, [facility] [address] [id number] [address] [place] [address], [place] [address] Sep, [facility] [address] [id number] [address] [place] [address], [place] [address] Sep, [facility] [address] [id number] [address] [place] [address], [place] [address] Sep, [facility] [address] [id number] [address] [place] [address], [place] [address] Sep, [facility] [address] [id number] [address] [place] [address], [place] [address] Sep, [facility] [address] [id number] [address] [place] [address], [place] [address] Aug, [facility] [address] [id number] [address] [place] [address], [place] [address] Aug, [facility] [address] [id number] [address] [place] [address], [place] [address] Aug, [facility] [address] [id number] [address] [place] [address], [place] [address] Aug, [facility] [address] [id number] [address] [place] [address], [place] [address] Aug, [facility] [address] [id number] [address] [place] [address], [place] [address] Aug, [facility] [address] [id number] [address] [place] [address], [place] [address] Aug, [facility] [address] [id number] [address] [place] [address], [place] [address] 17 Aug, 2014 [facility] [address] [id number] [address] [place] [address], [place] [address] 30 Jul, 2013 [facility] [address] [id number] [address] [place] [address], [place] [address] 30 Sep, 2013 [facility] [address] [id number] [address] [place] [id number] 30 Sep, 2013 [facility] [address] [id number] [address] [place] [address], [place] [address] 30 Sep, 2013 [facility] [address] [id number] [address] [place] [address], [place] [address] 25 Sep, 2013 [facility] [address] [id number] [address] [place] [address], [place] [address] 25 Jul, 2013 [facility] [address] [id number] [address] [place] [address], [place] [address] 15 Jul, 2014 [facility] [address] [id number] [facility] [place] [address] 15 Jul, 2014 [facility] [address] [id number] [facility] [place] [address] Jul, [facility] [address] [id number] [address] [place] [address], [place] [address] Jul, [facility] [address] [id number] [address] [place] [address], [place] [address] Jun, [facility] [address] [id number] [address] [place] [address], [place] [address] Jun, [facility] [address] [id number] [address] [place] [address], [place] [address] Jun, [facility] [address] [id number] [address] [place] [address], [place] [address] Jun, [facility] [address] [id number] [address] [place] [address], [place] [address] Jun, [facility] [address] [id number] [address] [place] [address], [place] [id number] Jun, [facility] [address] [id number] [address] [place] [address], [place] [address] Jun, [facility] [address] [id number] [address] [place] [address], [place] [address] Jun, [facility] [address] [id number] [address] [place] [address], [place] [address] Jun, [facility] [address] [id number] [address] [place] [address], [place] [address] Jun, [facility] [address] [id number] [address] [place] [address], [place] [address] Jun, [facility] [address] [id number] [address] [place] [address], [place] [address] Jun, [facility] [address] [id number] [facility] [place] [address] Jun, [facility] [address] [id number] [facility] [place] [address] Jun, [facility] [address] [id number] [facility] [place] [address] Jun, [facility] [address] [id number] [facility] [place] [address] Jun, [facility] [address] [id number] [address] [place] [address], [place] [address] Jun, [facility] [address] [id number] [address] [place] [address], [place] [address] Jun, [facility] [address] [id number] [address] [place] [address], [place] [id number] Jun, [facility] [address] [id number] [address] [place] [address], [place] [id number] Jun, [facility] [address] [id number] [address] [place] [address], [place] [address] Jun, [facility] [address] [id number] [address] [place] [address], [place] [address] Jun, [facility] [address] [id number] [address] [place] [address], [place] [address] May, [facility] [address] [id number] [address] [place] [address], [place] [address] May, [facility] [address] [id number] [address] [place] [address], [place] [address] May, [facility] [address] [id number] [address] [place] [address], [place] [address] May, [facility] [address] [id number] [address] [place] [address], [place] [address] May, [facility] [address] [id number] [address] [place] [address], [place] [address] May, 2013 [facility] [address] [id number] [facility] [place] [address] May, 2013 [facility] [address] [id number] [address] [place] [address], [place] [address] May, 2013 [facility] [address] [id number] [facility] [place] [address] May, 2013 [facility] [address] [id number] [address] [place] [address], [place] [address] May, [facility] [address] [id number] [address] [place] [address], [place] [address] May, [facility] [address] [id number] [address] [place] [address], [place] [address] May, [facility] [address] [id number] [address] [place] [address], [place] [address] May, [facility] [address] [id number] [address] [place] [address], [place] [address] Apr, [facility] [address] [id number] [address] [place] [address], [place] [address] Apr, [facility] [address] [id number] [address] [place] [address], [place] [address] Apr, [facility] [address] [id number] [address] [place] [address], [place] [address] Apr, [facility] [address] [id number] [address] [place] [address], [place] [address] Apr, [facility] [address] [id number] [address] [place] [address], [place] [address] Apr, [facility] [address] [id number] [address] [place] [address], [place] [address] Apr, [facility] [address] [id number] [address] [place] [address], [place] [address] Apr, [facility] [address] [id number] [address] [place] [address], [place] [address] Apr, [facility] [address] [id number] [address] [place] [address], [place] [address] March, [facility] [address] [id number] [address] [place] [address], [place] [address] March, [facility] [address] [id number] [address] [place] [address], [place] [address] March, [facility] [address] [id number] [address] [place] [address], [place] [address] March, [facility] [address] [id number] [address] [place] [address], [place] [address] March, [facility] [address] [id number] [address] [place] [address], [place] [address] March, [facility] [address] [id number] [address] [place] [address], [place] [address] March, [facility] [address] [id number] [address] [place] [address], [place] [address] March, [facility] [address] [id number] [address] [place] [address], [place] [address] March, [facility] [address] [id number] [address] [place] [address], [place] [address] March, [facility] [address] [id number] [address] [place] [address], [place] [address] March, [facility] [address] [id number] [address] [place] [address], [place] [address] March, [facility] [address] [id number] [address] [place] [address], [place] [address] March, [facility] [address] [id number] [address] [place] [address], [place] [address] March, [facility] [address] [id number] [address] [place] [address], [place] [address] March, [facility] [address] [id number] [address] [place] [address], [place] [address] March, [facility] [address] [id number] [address] [place] [address], [place] [address] March, [facility] [address] [id number] [address] [place] [address], [place] [address] March, [facility] [address] [id number] [address] [place] [address], [place] [address] March, [facility] [address] [id number] [address] [place] [address], [place] [address] March, [facility] [address] [id number] [address] [place] [address], [place] [address] Feb, [facility] [address] [id number] [address] [place] [address], [place] [id number] Feb, [facility] [address] [id number] [address] [place] [address], [place] [id number] Feb, [facility] [address] [id number] [address] [place] [address], [place] [id number] Feb, [facility] [address] [id number] [address] [place] [address], [place] [id number] Feb, [facility] [address] [id number] [address] [place] [address], [place] [id number] Feb, [facility] [address] [id number] [address] [place] [address], [place] [address] Feb, [facility] [address] [id number] [address] [place] [address], [place] [address] Feb, [facility] [address] [id number] [address] [place] [address], [place] [address] Jan, [facility] [address] [id number] [address] [place] [address], [place] [id number] Jan, [facility] [address] [id number] [address] [place] [address], [place] [address] 24 Jan, 2014 [facility] [address] [id number] [address] [place] [address], [place] [id number] Jan, [facility] [address] [id number] [address] [place] [address], [place] [address] Jan, [facility] [address] [id number] [address] [place] [address], [place] [address] Jan, [facility] [address] [id number] [address] [place] [address], [place] [id number] Jan, [facility] [address] [id number] [address] [place] [address], [place] [id number] Jan, [facility] [address] [id number] [address] [place] [address], [place] [id number] Jan, [facility] [address] [id number] [address] [place] [address], [place] [id number] Jan, [facility] [address] [id number] [address] [place] [address], [place] [id number] 27 Dec, 2013 [facility] [address] [id number] [address] [place] [address], [place] [id number] Dec, [facility] [address] [id number] [address] [place] [address], [place] [id number] Dec, [facility] [address] [id number] [address] [place] [address], [place] [id number] 2013 [facility] [address] [id number] [address] [place] [address] [id number] 2013 [facility] [address] [id number] [address] [place] [address], [place] [id number] 13 Dec, 2013 [facility] [address] [id number] [address] [place] [address], [place] [address] Dec, [facility] [address] [id number] [address] [place] [address], [place] [id number] Dec, [facility] [address] [id number] [address] [place] [address], [place] [id number] Nov, [facility] [address] [id number] [address] [place] [address], [place] [id number] Nov, [facility] [address] [id number] [address] [place] [address], [place] [address] Nov, [facility] [address] [id number] [address] [place] [address], [place] [address] Nov, [facility] [address] [id number] [address] [place] [address], [place] [address] Nov, [facility] [address] [id number] [address] [place] [address], [place] [id number] Nov, [facility] [address] [id number] [address] [place] [address], [place] [id number] Nov, [facility] [address] [id number] [address] [place] [address], [place] [id number] Nov, [facility] [address] [id number] [address] [place] [address], [place] [id number] Nov, [facility] [address] [id number] [address] [place] [address], [place] [id number] Nov, [facility] [address] [id number] [address] [place] [address], [place] [address] Nov, [facility] [address] [id number] [address] [place] [address], [place] [id number] Nov, [facility] [address] [id number] [address] [place] [address], [place] [id number] Nov, [facility] [address] [id number] [address] [place] [address], [place] [id number] Oct, [facility] [address] [id number] [address] [place] [address], [place] [id number] Oct, [facility] [address] [id number] [address] [place] [address], [place] [id number] Oct, [facility] [address] [id number] [address] [place] [address], [place] [id number] Oct, [facility] [address] [id number] [address] [place] [address], [place] [id number] Oct, [facility] [address] [id number] [address] [place] [address], [place] [id number] Oct, [facility] [address] [id number] [address] [place] [address], [place] [id number] Oct, [facility] [address] [id number] [address] [place] [address], [place] [id number] Oct, [facility] [address] [id number] [address] [place] [address], [place] [id number] Oct, [facility] [address] [id number] [address] [place] [address], [place] [id number] Oct, [facility] [address] [id number] [address] [place] [address], [place] [id number] Oct, [facility] [address] [id number] [address] [place] [address], [place] [id number] Oct, [facility] [address] [id number] [address] [place] [address], [place] [id number] Oct, [facility] [address] [id number] [address] [place] [address], [place] [id number] Oct, [facility] [address] [id number] [address] [place] [address], [place] [id number] 14 Sep, 2013 [facility] [address] [id number] [address] [place] [address], [place] [id number] Sep, [facility] [address] [id number] [address] [place] [address], [place] [id number] 05 Sep, 2013 [facility] [address] [id number] [address] [place] [address], [place] [id number] 05 Sep, 2013 [facility] [address] [id number] [address] [place] [address], [place] [id number] Sep, [facility] [address] [id number] [address] [place] [address], [place] [id number] Sep, [facility] [address] [id number] [address] [place] [address], [place] [id number] Sep, [facility] [address] [id number] [address] [place] [address], [place] [id number] Sep, [facility] [address] [id number] [address] [place] [address], [place] [address] Sep, [facility] [address] [id number] [address] [place] [address], [place] [id number] Sep, [facility] [address] [id number] [address] [place] [address], [place] [id number] Aug, [facility] [address] [id number] [address] [place] [address], [place] [address] Aug, [facility] [address] [id number] [address] [place] [address], [place] [address] Aug, [facility] [address] [id number] [address] [place] [address], [place] [address] Aug, [facility] [address] [id number] [address] [place] [address], [place] [id number] Aug, [facility] [address] [id number] [address] [place] [address], [place] [address] Aug, [facility] [address] [id number] [address] [place] [address], [place] [address] Aug, [facility] [address] [id number] [address] [place] [address], [place] [id number] Aug, [facility] [address] [id number] [address] [place] [address], [place] [address] Aug, [facility] [address] [id number] [address] [place] [address], [place] [address] Aug, [facility] [address] [id number] [address] [place] [address], [place] [id number] 18 Aug, 2013 [facility] [address] [id number] [address] [place] [address], [place] [id number] 18 Aug, 2013 [facility] [address] [id number] [address] [place] [address], [place] [id number] 18 Aug, 2013 [facility] [address] [id number] [address] [place] [address], [place] [id number] 18 Aug, 2013 [facility] [address] [id number] [address] [place] [address], [place] [id number] 17 Aug, 2013 [facility] [address] [id number] [address] [place] [address], [place] [id number] 14 Aug, 2013 [facility] [address] [id number] [address] [place] [address], [place] [id number] 14 Aug, 2013 [facility] [address] [id number] [address] [place] [address], [place] [id number] Aug, [facility] [address] [id number] [address] [place] [address], [place] [id number] 20 Jul, 2013 [facility] [address] [id number] [address] [place] [address], [place] [id number] 19 Jul, 2013 [facility] [address] [id number] [address] [place] [address], [place] [id number] 18 Jul, 2013 [facility] [address] [id number] [address] [place] [id number] 11 Jul, 2013 [facility] [address] [id number] [address] [place] [address], [place] [id number] 11 Jul, 2013 [facility] [address] [id number] [address] [place] [address], [place] [id number] Jun, [facility] [address] [id number] [address] [place] [address], [place] [id number] Jun, [facility] [address] [id number] [address] [place] [address], [place] [id number] Jun, [facility] [address] [id number] [address] [place] [address], [place] [id number] Jun, [facility] [address] [id number] [address] [place] [address], [place] [id number] Jun, [facility] [address] [id number] [address] [place] [address], [place] [id number] Jun, [facility] [address] [id number] [address] [place] [address], [place] [id number] Jun, [facility] [address] [id number] [address] [place] [address], [place] [id number] Jun, [facility] [address] [id number] [address] [place] [address], [place] [id number] Jun, [facility] [address] [id number] [address] [place] [address], [place] [id number] Jun, [facility] [address] [id number] [address] [place] [address], [place] [address] May, [facility] [address] [id number] [address] [place] [address], [place] [id number] May, [facility] [address] [id number] [address] [place] [address], [place] [id number] May, [facility] [address] [id number] [address] [place] [address], [place] [id number] May, [facility] [address] [id number] [address] [place] [address], [place] [id number] May, [facility] [address] [id number] [address] [place] [address], [place] [id number] 16 May, 2013 [facility] [address] [id number] [address] [place] [address], [place] [address] May, [facility] [address] [id number] [address] [place] [address], [place] [id number] May, [facility] [address] [id number] [address] [place] [address], [place] [address] May, [facility] [address] [id number] [address] [place] [address], [place] [address] Apr, [facility] [address] [id number] [address] [place] [address], [place] [id number] Apr, [facility] [address] [id number] [address] [place] [address], [place] [id number] Apr, [facility] [address] [id number] [address] [place] [address], [place] [address] Apr, [facility] [address] [id number] [address] [place] [address], [place] [address] Apr, [facility] [address] [id number] [address] [place] [address], [place] [address] Apr, [facility] [address] [id number] [address] [place] [address], [place] [id number] Apr, [facility] [address] [id number] [address] [place] [address], [place] [address] March, [facility] [address] [id number] [address] [place] [address], [place] [address] Feb, [facility] [address] [id number] [address] [place] [address], [place] [id number] Feb, [facility] [address] [id number] [address] [place] [address], [place] [id number] Feb, [facility] [address] [id number] [address] [place] [address], [place] [id number] Jan, [facility] [address] [id number] [address] [place] [address], [place] [address] Jan, [facility] [address] [id number] [address] [place] [address], [place] [id number] Jan, [facility] [address] [id number] [address] [place] [address], [place] [id number] 14 Jan, 2013 [facility] [address] [id number] [address] [place] [address], [place] [id number] 12 Jan, 2013 [facility] [address] [id number] [address] [place] [address], [place] [address] 08 Jan, 2013 [facility] [address] [id number] [address] [place] [address], [place] [id number] 07 Jan, 2013 [facility] [address] [id number] [address] [place] [address], [place] [id number] 04 Jan, 2013 [facility] [address] [id number] [address] [place] [address], [place] [id number] 28 Dec, 2012 [facility] [address] [id number] [address] [place] [address], [place] [address] 25 Dec, 2012 [facility] [address] [id number] [address] [place] [address], [place] [id number] 13 Dec, 2012 [facility] [address] [id number] [address] [place] [address], [place] [id number] 11 Dec, 2012 [facility] [address] [id number] [address] [place] [address], [place] [id number] 07 Dec, 2012 [facility] [address] [id number] [address] [place] [address], [place] [id number] 06 Dec, 2012 [facility] [address] [id number] [address] [place] [address], [place] [id number] 05 Dec, 2012 [facility] [address] [id number] [address] [place] [address], [place] [id number] 31 Nov, 2012 [facility] [address] [id number] [address] [place] [address], [place] [id number] 24 Nov, 2012 [facility] [address] [id number] [address] [place] [address], [place] [id number] 18 Nov, 2012 [facility] [address] [id number] [address] [place] [address], [place] [address] 15 Nov, 2012 [facility] [address] [id number] [address] [place] [address], [place] [id number] 10 Nov, 2012 [facility] [address] [id number] [address] [place] [address], [place] [id number] 10 Nov, 2012 [facility] [address] [id number] [address] [place] [address], [place] [id number] 02 Nov, 2012 [facility] [address] [id number] [address] [place] [address], [place] [id number] Oct, [facility] [address] [id number] [address] [place] [address], [place] [id number] Oct, [facility] [address] [id number] [address] [place] [address], [place] [id number] Oct, [facility] [address] [id number] [address] [place] [address], [place] [address] Oct, [facility] [address] [id number] [address] [place] [address], [place] [id number] Oct, [facility] [address] [id number] [address] [place] [address], [place] [id number] Oct, [facility] [address] [id number] [address] [place] [address], [place] [id number] Oct, [facility] [address] [id number] [address] [place] [address], [place] [id number] Oct, [facility] [address] [id number] [address] [place] [address], [place] [address] Oct, [facility] [address] [id number] [address] [place] [address], [place] [id number] Oct, [facility] [address] [id number] [address] [place] [address], [place] [id number] Oct, [facility] [address] [id number] [address] [place] [address], [place] [id number] 04 Oct, 2012 [facility] [address] [id number] [address] [place] [address], [place] [id number] Sep, [facility] [address] [id number] [address] [place] [address], [place] [id number] Sep, [facility] [address] [id number] [address] [place] [address], [place] [id number] Sep, [facility] [address] [id number] [address] [place] [address], [place] [id number] Sep, [facility] [address] [id number] [address] [place] [id number] Sep, [facility] [address] [id number] [address] [place] [address], [place] [id number] Sep, [facility] [address] [id number] [address] [place] [id number] Sep, [facility] [address] [id number] [address] [place] [address], [place] [id number] Sep, [facility] [address] [id number] [address] [place] [id number] Sep, [facility] [address] [id number] [address] [place] [id number] Sep, [facility] [address] [id number] [address] [place] [id number] Sep, [facility] [address] [id number] [address] [place] [id number] Aug, [facility] [address] [id number] [address] [place] [id number] Aug, [facility] [address] [id number] [address] [place] [id number] Aug, [facility] [address] [id number] [address] [place] [id number] Aug, [facility] [address] [id number] [address] [place] [id number] Aug, [facility] [address] [id number] [address] [place] [address], [place] [id number] Aug, [facility] [address] [id number] [address] [place] [address], [place] [id number] Aug, [facility] [address] [id number] [address] [place] [address], [place] [id number] Aug, [facility] [address] [id number] [address] [place] [address], [place] [id number] Aug, [facility] [address] [id number] [address] [place] [address], [place] [id number] Aug, [facility] [address] [id number] [address] [place] [address], [place] [address] Jul, [facility] [address] [id number] [address] [place] [address], [place] [id number] Jul, [facility] [address] [id number] [address] [place] [address], [place] [id number] Jul, [facility] [address] [id number] [address] [place] [address], [place] [id number] Jul, [facility] [address] [id number] [address] [place] [address], [place] [id number] Jun, [facility] [address] [id number] [address] [place] [address], [place] [id number] Jun, [facility] [address] [id number] [address] [place] [address], [place] [id number] Jun, [facility] [address] [id number] [address] [place] [address], [place] [address] Jun, [facility] [address] [id number] [address] [place] [address], [place] [id number] Jun, [facility] [address] [id number] [address] [place] [address], [place] [id number] Jun, [facility] [address] [id number] [address] [place] [address], [place] [id number] Jun, [facility] [address] [id number] [address] [place] [address], [place] [id number] May, [facility] [address] [id number] [address] [place] [address], [place] [id number] May, [facility] [address] [id number] [address] [place] [address], [place] [address] May, [facility] [address] [id number] [address] [place] [address], [place] [address] May, [facility] [address] [id number] [address] [place] [address], [place] [address] May, [facility] [address] [id number] [address] [place] [address], [place] [address] Apr, [facility] [address] [id number] [address] [place] [address], [place] [id number] Apr, [facility] [address] [id number] [address] [place] [address], [place] [address] Apr, [facility] [address] [id number] [address] [place] [address], [place] [id number] Apr, [facility] [address] [id number] [address] [place] [address], [place] [address] Apr, [facility] [address] [id number] [address] [place] [address], [place] [id number] March, [facility] [address] [id number] [address] [place] [address], [place] [id number] March, [facility] [address] [id number] [address] [place] [address], [place] [id number] March, [facility] [address] [id number] [address] [place] [address], [place] [id number] March, [facility] [address] [id number] [address] [place] [address], [place] [id number] March, [facility] [address] [id number] [address] [place] [address], [place] [id number] March, [facility] [address] [id number] [address] [place] [address], [place] [id number] March, [facility] [address] [id number] [address] [place] [address], [place] [id number] March, [facility] [address] [id number] [address] [place] [address], [place] [id number] March, [facility] [address] [id number] [address] [place] [address], [place] [id number] March, [facility] [address] [id number] [address] [place] [address], [place] [id number] Feb, [facility] [address] [id number] [address] [place] [address], [place] [id number] Feb, [facility] [address] [id number] [address] [place] [address], [place] [id number] Feb, [facility] [address] [id number] [address] [place] [address], [place] [id number] Feb, [facility] [address] [id number] [address] [place] [address], [place] [id number] Feb, [facility] [address] [id number] [address] [place] [address], [place] [id number] Feb, [facility] [address] [id number] [address] [place] [address], [place] [id number] Feb, [facility] [address] [id number] [address] [place] [address], [place] [id number] Feb, [facility] [address] [id number] [address] [place] [address], [place] [id number] Feb, [facility] [address] [id number] [address] [place] [address], [place] [id number] Jan, [facility] [address] [id number] [address] [place] [address], [place] [id number] Jan, [facility] [address] [id number] [address] [place] [address], [place] [id number] 05 Jan, 2012 [facility] [address] [id number] [address] [place] [address], [place] [address] Jan, [facility] [address] [id number] [address] [place] [address], [place] [id number] 29 Dec, 2011 [facility] [address] [id number] [address] [place] [address], [place] [address] Dec, [facility] [address] [id number] [address] [place] [address], [place] [id number] Nov, [facility] [address] [id number] [address] [place] [address], [place] [address] Nov, [facility] [address] [id number] [address] [place] [address], [place] [address] Nov, [facility] [address] [id number] [address] [place] [address], [place] [id number] Nov, [facility] [address] [id number] [address] [place] [address], [place] [id number] Nov, [facility] [address] [id number] [address] [place] [address], [place] [id number] Oct, [facility] [address] [id number] [address] [place] [address], [place] [address] Oct, [facility] [address] [id number] [address] [place] [address], [place] [id number] Oct, [facility] [address] [id number] [address] [place] [address], [place] [id number] Oct, [facility] [address] [id number] [address] [place] [address], [place] [address] Oct, [facility] [address] [id number] [address] [place] [address], [place] [id number] Oct, [facility] [address] [id number] [address] [place] [address], [place] [id number] Oct, [facility] [address] [facility] [id number] [address] [address] Oct, [facility] [address] [facility] [id number] [address] [place] [id number] Sep, IMMUNIZATIONS No Known Immunizations SOCIAL HISTORY Never Assessed REASON FOR VISIT PLAN OF CARE VITAL SIGNS MEDICATIONS No Known Medications RESULTS No Results PROCEDURES No Known procedures INSTRUCTIONS MEDICATIONS ADMINISTERED No Known Medications MEDICAL (GENERAL) HISTORY Type Description Date Medical History aortic abdominal aneurysm moderate 04/06 18 Medical History illiac aneurysm 03/2018 Surgical History No Surgical history information Hospitalization History [facility]- Urosepsis, ab d pain and fever, discharged 11/27/2017 11/26/2017 Hospitalization History [facility]- Went Unrepsonsive, Hit head 2017 Hospitalization History [facility]- Back Pain 05/05/ 8
--- OUTSIDE RECORDS SUMMARY | 2020-06-18 15:09 | XMS REPORT ---
Author Author Sanjuanita Abdul Doctor Organization [facility] Address Unknown Phone Unavailable Care Team Providers Care Cushion Installer Name Role Phone Migration, Doctor Unavailable Unavailable PROBLEMS Type Condition ICD9-CM Code SKG47-VQ Code Onset Dates Condition S tatus SNOMED Code Problem Coronary artery disease I25.10 Active 70064897 Problem Hypertension I10 Active 1878707 3 Problem Other chronic pain G89.29 Active 8 0362216 Problem Hyperlipidemia E78.5 Active 66807 004 Problem Type 2 diabetes mellitus wit hout complication, without long-term current use of insulin E11.9 Active 374230611 Problem Low back pain M54.5 Active 758504 009 Problem Pharyngeal dysphagia R13.13 Active 61229832601036 Problem Anxiety F41.9 Active 14984218 Problem Peripheral vascular disease I73.9 Ac tive 993415747 Problem Suprapubic catheter Z93.59 Active 727081844 Problem Reactive depression F32.9 Active 68335981 Problem Neurogenic bladder N31.9 Active 3 68790166 Problem Ventral hernia without obstruction or gangrene K43 .9 Active 117723164 Problem Insomnia G47.00 Active 444321945 Problem Paroxysmal atrial fibrillation I48.0 Active 881472044 Problem Postmenopausal atrophic vaginitis N95.2 Active 51412025 Problem Encounter for suprapubic catheter care Z43.5 Active 913842250 ALLERGIES No Information ENCOUNTERS Encounter Location Date Diagnosis [facility] [address] [place] [id number] Aug, Suprapubic catheter Z93.59 [facility] [address] [id number] [address] [place] [address] Jul, Strain of right shoulder, scherer bsequent encounter S46.911D and Anxiety F41.9 [facility] [address] [id number] [address] [place] [address] Jul, Anxiety F41.9 [facility] [facility] [address] [id number] [address] [place] [address] Jun, [facility] [address] [id number] [address] [place] [id number] Jun, [facility] [address] [id number] [address] [place] [address] Jun, [facility] [address] [id number] [address] [place] [address] Jun, Strain of right shoulder, scherer bsequent encounter S46.911D [facility] [address] [id number] [address] [place] [address] Jun, Strain of right shoulder, scherer bsequent encounter S46.911D [facility] [address] [id number] [address] [place] [address] Jun, Anxiety F41.9 [facility] [address] [place] [id number] Jun, Neurogenic bladder N31.9 and Anxiety F41 .9 [facility] [address] [place] [id number] May, Anxiety F41.9 [place] [address] [id number] [address] [place] [address] May, Dysuria R30.0 [place] [address] [id number] [address] [place] [id number] May, Strain of right shoulder, scherer bsequent encounter S46.911D and Anxiety F41.9 [place] [address] [id number] [address] [place] [address] Apr, [facility] [address] [place] [id number] Apr, Strain of right shoulder, subsequent enc ounter S46.911D [facility] [address] [id number] [address] [place] [address] Apr, Strain of right shoulder, scherer bsequent encounter S46.911D and Anxiety F41.9 [facility] [address] [place] [id number] 13 Apr, 2019 Type 2 diabetes mellitus without complic ation, without long-term current use of insulin E11.9 and Neurogenic bladder N31.9 [facility] [address] [place] [id number] 11 Apr, 2019 Strain of right shoulder, subsequent enc ounter S46.911D ; History of GI bleed Z87.19 ; Neurogenic bladder N31.9 and Reactive depression F32.9 [facility] [address] [id number] [address] [place] [address] Apr, Acute pain of left shoulder M25.512 [place] [address] [id number] [address] [place] [address] Apr, [place] [address] [id number] [address] [place] [address] Apr, Anxiety F41.9 and 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 [facility] [address] [place] [id number] March, Gastrointestinal hemorrhage associated w ith acute gastritis K29.01 [facility] [address] [id number] [address] [place] [id number] March, [facility] [address] [place] [id number] March, Bronchitis J40 [facility] [address] [id number] [address] [place] [address] March, Cough R05 [facility] [address] [id number] [address] [place] [address] March, Other chronic pain G89.29 [facility] [address] [id number] [address] [place] [address] March, Anxiety F41.9 [facility] [address] [id number] [address] [place] [address] March, [facility] [address] [id number] [address] [place] [address] Feb, Other chronic pain G89.29 [facility] [address] [id number] [address] [place] [address] Feb, Anxiety F41.9 [facility] [address] [id number] [address] [place] [address] Feb, Other chronic pain G89.29 [facility] [address] [place] [id number] Feb, Neurogenic bladder N31.9 and Suprapubic catheter Z93.59 [facility] [address] [id number] [address] [place] [address] Jan, Anxiety F41.9 [facility] [address] [id number] [address] [place] [address] Dec, Anxiety F41.9 [facility] [address] [id number] [address] [place] [address] Dec, Other chronic pain G89.29 an d Anxiety F41.9 [facility] [address] [id number] [address] [place] [address] Dec, [facility] [address] [place] [id number] Dec, Neurogenic bladder N31.9 and Suprapubic catheter Z93.59 [facility] [address] [id number] [address] [place] [address] Nov, Other chronic pain G89.29 an d Anxiety F41.9 [facility] [address] [id number] [address] [place] [address] Nov, [facility] [address] [place] [id number] Nov, Suprapubic catheter Z93.59 [facility] [address] [id number] [address] [place] [address] Oct, Other chronic pain G89.29 an d Anxiety F41.9 [facility] [address] [id number] [address] [place] [address] Oct, [facility] [address] [id number] [address] [place] [address] Oct, Suprapubic catheter Z93.59 [facility] [address] [id number] [address] [place] [address] Oct, [facility] [address] [place] [id number] Oct, [facility] [address] [id number] [address] [place] [address] Oct, Anxiety F41.9 [facility] [address] [id number] [address] [place] [address] Oct, Anxiety F41.9 [facility] [address] [place] [id number] Oct, Other chronic pain G89.29 [facility] [address] [id number] [address] [place] [address] Sep, Other chronic pain G89.29 [facility] [address] [place] [id number] Sep, Suprapubic catheter Z93.59 and Cervicalg ia M54.2 [facility] [address] [id number] [address] [place] [address] Sep, [facility] [address] [id number] [address] [place] [id number] Sep, [facility] [address] [id number] [address] [place] [address] Sep, [facility] [address] [place] [id number] Aug, Cystitis N30.90 [facility] [address] [id number] [address] [place] [address] Aug, [facility] [address] [id number] [address] [place] [address] Aug, Other chronic pain G89.29 [facility] [address] [id number] [address] [place] [address] Aug, [facility] [address] [place] [id number] Aug, Encounter for suprapubic catheter care Z 43.5 [facility] [address] [id number] [address] [place] [address] Jul, [facility] [address] [place] [id number] Jul, [facility] [address] [id number] [address] [place] [address] Jul, Other chronic pain G89.29 [facility] [address] [id number] [address] [place] [id number] Jul, [facility] [address] [id number] [address] [place] [address] Jul, [facility] [address] [place] [id number] Jun, Postmenopausal atrophic vaginitis N95.2 [facility] [address] [id number] [address] [place] [address] Jun, Other chronic pain G89.29 [facility] [address] [id number] [address] [place] [id number] Jun, [facility] [address] [place] [id number] May, Anxiety F41.9 ; Type 2 diabetes mellitus without complication, without long-term current use of insulin E11.9 ; Hypertension I10 ; Low back pain M54.5 ; Paroxysmal atrial fibrillation I48.0 and 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 [facility] [address] [id number] [address] [place] [address] May, Other chronic pain G89.29 [facility] [address] [place] [id number] May, Low back pain M54.5 [facility] [address] [id number] [address] [place] [address] May, [facility] [address] [id number] [address] [place] [address] Apr, Other chronic pain G89.29 [facility] [address] [id number] [address] [place] [address] Apr, [facility] [address] [id number] [address] [place] [address] Apr, [facility] [address] [place] [id number] Apr, Closed compression fracture of L3 lumbar vertebra with routine healing, subsequent encounter S32.030D [facility] [address] [place] [id number] Apr, Low back pain M54.5 [facility] [address] [place] [id number] Apr, Coccydynia M53.3 [facility] [address] [id number] [address] [place] [address] March, [facility] [address] [id number] [address] [place] [address] March, Other chronic pain G89.29 [facility] [address] [id number] [address] [place] [address] March, [facility] [address] [id number] [address] [place] [address] March, [facility] [address] [id number] [address] [place] [address] Feb, [facility] [address] [id number] [address] [place] [address] Feb, Other chronic pain G89.29 [facility] [address] [place] [id number] Feb, Other chronic pain G89.29 and Anxiety F4 1.9 [facility] [address] [facility] [id number] [address] [place] [address] Feb, [facility] [address] [facility] [id number] [address] [place] [id number] Jan, [facility] [address] [facility] [id number] [address] [place] [address] Jan, [facility] [address] [facility] [id number] [address] [place] [id number] Jan, [facility] [address] [facility] [id number] [address] [place] [address] Jan, [facility] [address] [facility] [id number] [address] [place] [address] Dec, Via [facility] [address] [place] [id number] Dec, Peripheral vascular disease I73.9 ; 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 ; Other chronic pain G89.29 ; Anxiety F41.9 ; Reactive depression F32.9 ; Insomnia G47.00 and Type 2 diabetes mellitus without complication, without long-term current use of insulin E11.[address] [id number] [place] [address] Nov, [place] [address] [id number] [place] [id number] Nov, Anxiety F41.9 [facility] [address] [facility] [id number] [address] [place] [address] Nov, [place] [address] [id number] [place] [id number] Nov, Anxiety F41.9 [facility] [address] [place] [id number] Nov, Status post surgery Z98.890 ; Confused R 41.0 ; Anxiety F41.9 and Other chronic pain G89.29 [place] [address] [id number] [place] [id number] Nov, Other chronic pain G89.29 [facility] [address] [id number] [address] [place] [address], [place] [address] Oct, [facility] [address] [id number] [place] [id number] Oct, Other chronic pain G89.29 [facility] [address] [id number] [address] [place] [address], [place] [address] Oct, Anxiety F41.9 [facility] [address] [id number] [place] [id number] Sep, Other chronic pain G89.29 [facility] [address] [id number] [place] [id number] Sep, [facility] [address] [place] [id number] Aug, Dysuria R30.0 and Anxiety F41.9 [facility] [address] [id number] [address] [place] [address] Aug, [facility] [address] [id number] [place] [address] Aug, Other chronic pain G89.29 [facility] [address] [id number] [address] [place] [address] Jul, Other chronic pain G89.29 [facility] [address] [id number] [place] [id number] Jun, [facility] [address] [id number] [place] [id number] Jun, Other chronic pain G89.29 [facility] [address] [id number] [address] [place] [address] Jun, [facility] [address] [facility] [id number] [address] [place] [address] May, Other chronic pain G89.29 [facility] [address] [id number] [address] [place] [address] Apr, Other chronic pain G89.29 [facility] [address] [place] [id number] Apr, Reactive depression F32.9 and Pharyngeal dysphagia R13.13 [facility] [address] [id number] [address] [place] [address] Apr, Urinary tract infection with out hematuria, site unspecified N39.0 [facility] [address] [id number] [address] [place] [address] March, Other chronic pain G89.29 [facility] [address] [id number] [address] [place] [address] Feb, Other chronic pain G89.29 [facility] [address] [id number] [address] [place] [address] Feb, [facility] [address] [id number] [place] [id number] Feb, [facility] [address] [place] [id number] Feb, Dysuria R30.0 and Ventral hernia without obstruction or gangrene K43.9 [facility] [address] [id number] [address] [place] [address] Jan, Other chronic pain G89.29 [facility] [address] [id number] [place] [id number] Dec, Other chronic pain G89.29 [facility] [address] [id number] [address] [place] [address] Nov, Other chronic pain G89.[address] [facility] [address] [place] [id number] Nov, Lymphadenitis I88.9 [facility] [address] [id number] [address] [place] [address] Nov, Other chronic pain G89.29 [facility] [address] [id number] [address] [place] [address] Nov, [facility] [address] [id number] [place] [facility] [place] [id number] Nov, Other chronic pain G89.[address] [facility] [address] [place] [id number] Oct, Low back pain M54.5 ; Hypertension I10 a nd Type 2 diabetes mellitus without complication, without long-term current use of insulin E11.9 [facility] [address] [id number] [address] [place] [address] Oct, [facility] [address] [id number] [address] [place] [address] Oct, [facility] [address] [id number] [address] [place] [address] Oct, [facility] [address] [id number] [address] [place] [address] Oct, [facility] [address] [id number] [address] [place] [address] Sep, [facility] [address] [id number] [address] [place] [address] Sep, [facility] [address] [id number] [address] [place] [address] Aug, Other chronic pain G89.29 [facility] [address] [id number] [address] [place] [address] Jul, [facility] [address] [id number] [address] [place] [address] Jul, [facility] [address] [id number] [address] [place] [address] Jul, [facility] [address] [id number] [address] [place] [address] Jun, [facility] [address] [id number] [address] [place] [address] 15 Jun, [address] [facility] [address] [place] [id number] Jun, Low back pain M54.5 ; Other chronic pain G89.29 and Coronary artery disease I25.10 [facility] [address] [id number] [address] [place] [address] 08 Jun, 2016 [facility] [address] [id number] [address] [place] [address] May, [facility] [address] [id number] [address] [place] [address] May, [facility] [address] [id number] [address] [place] [address] May, Other chronic pain G89.29 [facility] [address] [id number] [address] [place] [address] May, [facility] [address] [id number] [address] [place] [address] Apr, [facility] [address] [id number] [address] [place] [address] 17 Apr, 2016 Acute cystitis without hemat uria N30.00 [facility] [address] [id number] [address] [place] [address] 16 Apr, 2016 Acute cystitis without hemat uria N30.00 ; Coronary artery disease I25.10 ; Low back pain M54.5 and Other chronic pain G89.29 [facility] [address] [id number] [address] [place] [address] 13 Apr, 2016 Other chronic pain G89.29 [facility] [address] [id number] [address] [place] [id number] March, Other chronic pain G89.29 [facility] [address] [id number] [address] [place] [id number] Feb, [facility] [address] [id number] [address] [place] [id number] 15 Feb, 2016 Arthritis M19.90 [facility] [address] [id number] [address] [place] [id number] 13 Feb, 2016 [facility] [address] [id number] [address] [place] [id number] 30 Jan, 2016 [facility] [address] [id number] [address] [place] [phone] Jan, [facility] [address] [id number] [address] [place] [phone] Jan, Other chronic pain G89.29 [facility] [address] [id number] [address] [place] [id number] Jan, Hypertension I10 ; Coronary artery disease I25.10 and Insomnia G47.00 [facility] [address] [id number] [address] [place] [id number] Jan, [facility] [address] [id number] [address] [place] [id number] Dec, Right hip pain M25.551 [facility] [address] [id number] [address] [place] [phone] Dec, [facility] [address] [id number] [address] [place] [id number] Dec, [facility] [address] [id number] [address] [place] [phone] Dec, [facility] [address] [id number] [address] [place] [id number] Dec, Other chronic pain G89.29 [facility] [address] [id number] [address] [place] [id number] Dec, [facility] [address] [id number] [address] [place] [phone] Nov, [facility] [address] [id number] [address] [place] [id number] Nov, Other chronic pain G89.29 [facility] [address] [id number] [address] [place] [id number] Nov, Right hip pain M25.551 and C oronary artery disease I25.10 [facility] [address] [id number] [address] [place] [id number] Nov, Other chronic pain G89.29 [facility] [address] [id number] [address] [place] [id number] Oct, [facility] [address] [id number] [address] [place] [id number] Oct, [facility] [address] [id number] [address] [place] [id number] Sep, [facility] [address] [id number] [address] [place] [address] Sep, [facility] [address] [id number] [address] [place] [address] Aug, [facility] [address] [id number] [address] [place] [address] Aug, Hypertension I10 ; Coronary artery disease I25.10 and Arthritis M19.90 [facility] [address] [id number] [address] [place] [address] Jun, [facility] [address] [id number] [address] [place] [address] Jun, Essential hypertension, jayson gn 401.1 ; Other chronic pain 338.29 and Chronic airway obstruction, not elsewhere classified 496 [facility] [address] [id number] [address] [place] [address] Jun, [facility] [address] [id number] [address] [place] [address] Jun, [facility] [address] [id number] [address] [place] [address] Jun, [facility] [address] [id number] [address] [place] [address], [place] [address] May, [facility] [address] [id number] [address] [place] [address], [place] [address] May, [facility] [address] [id number] [address] [place] [address], [place] [address] Apr, [facility] [address] [id number] [address] [place] [address] Apr, [facility] [address] [id number] [address] [place] [address], [place] [address] Apr, [facility] [address] [id number] [address] [place] [address], [place] [address] March, [facility] [address] [id number] [address] [place] [address], [place] [address] March, [facility] [address] [id number] [address] [place] [address], [place] [address] March, [facility] [address] [id number] [address] [place] [address], [place] [address] March, [facility] [address] [id number] [address] [place] [address] March, Sialadenitis 527.2 [facility] [address] [id number] [address] [place] [address], [place] [address] Feb, [facility] [address] [id number] [address] [place] [address] Feb, [facility] [address] [id number] [address] [place] [address], [place] [address] Feb, [facility] [address] [id number] [address] [place] [address], [place] [address] Feb, [facility] [address] [id number] [address] [place] [address] Feb, [facility] [address] [id number] [address] [place] [address], [place] [address] Jan, [facility] [address] [id number] [address] [place] [address], [place] [address] Jan, [facility] [address] [id number] [address] [place] [address], [place] [address] Jan, [facility] [address] [id number] [address] [place] [address], [place] [address] Jan, [facility] [address] [id number] [address] [place] [address], [place] [address] Jan, [facility] [address] [id number] [address] [place] [address], [place] [address] Jan, [facility] [address] [id number] [address] [place] [address], [place] [address] Dec, [facility] [address] [id number] [address] [place] [address], [place] [address] Dec, [facility] [address] [id number] [address] [place] [address], [place] [address] Dec, [facility] [address] [id number] [address] [place] [address], [place] [address] Dec, [facility] [address] [id number] [address] [place] [address], [place] [address] Dec, [facility] [address] [id number] [address] [place] [address], [place] [address] Dec, [facility] [address] [id number] [address] [place] [address], [place] [address] Nov, [facility] [address] [id number] [address] [place] [address], [place] [address] Nov, [facility] [address] [id number] [address] [place] [address], [place] [address] Nov, [facility] [address] [id number] [address] [place] [address], [place] [address] Nov, [facility] [address] [id number] [address] [place] [address], [place] [address] Nov, [facility] [address] [id number] [address] [place] [address], [place] [address] Nov, [facility] [address] [id number] [address] [place] [address], [place] [address] Nov, [facility] [address] [id number] [address] [place] [address], [place] [address] Nov, [facility] [address] [id number] [address] [place] [address], [place] [address] Nov, [facility] [address] [id number] [address] [place] [address], [place] [address] Nov, [facility] [address] [id number] [address] [place] [address], [place] [address] Nov, [facility] [address] [id number] [address] [place] [address], [place] [address] Nov, [facility] [address] [id number] [address] [place] [address], [place] [address] Nov, [facility] [address] [id number] [address] [place] [address], [place] [address] Nov, [facility] [address] [id number] [address] [place] [address], [place] [address] Oct, [facility] [address] [id number] [address] [place] [address], [place] [address] Oct, [facility] [address] [id number] [address] [place] [address], [place] [address] Oct, [facility] [address] [id number] [address] [place] [address], [place] [address] Oct, [facility] [address] [id number] [address] [place] [address], [place] [address] Oct, [facility] [address] [id number] [address] [place] [address], [place] [address] Oct, [facility] [address] [id number] [address] [place] [address], [place] [address] Oct, [facility] [address] [id number] [address] [place] [address], [place] [address] Oct, [facility] [address] [id number] [address] [place] [address], [place] [address] Oct, [facility] [address] [id number] [address] [place] [address], [place] [address] Sep, [facility] [address] [id number] [address] [place] [address], [place] [address] Sep, [facility] [address] [id number] [address] [place] [address], [place] [address] Sep, [facility] [address] [id number] [address] [place] [address], [place] [address] Sep, [facility] [address] [id number] [address] [place] [address], [place] [address] Sep, [facility] [address] [id number] [address] [place] [address], [place] [address] Sep, [facility] [address] [id number] [address] [place] [address], [place] [address] Sep, [facility] [address] [id number] [address] [place] [address], [place] [address] Sep, [facility] [address] [id number] [address] [place] [address], [place] [address] Sep, [facility] [address] [id number] [address] [place] [address], [place] [address] Sep, [facility] [address] [id number] [address] [place] [address], [place] [address] Sep, [facility] [address] [id number] [address] [place] [address], [place] [address] Sep, [facility] [address] [id number] [address] [place] [address], [place] [address] 30 Aug, 2014 [facility] [address] [id number] [address] [place] [address], [place] [address] 30 Aug, 2014 [facility] [address] [id number] [address] [place] [address], [place] [address] 29 Aug, 2014 [facility] [address] [id number] [address] [place] [address], [place] [address] 29 Aug, 2014 [facility] [address] [id number] [address] [place] [address], [place] [address] Aug, [facility] [address] [id number] [address] [place] [address], [place] [address] Aug, [facility] [address] [id number] [address] [place] [address], [place] [address] Aug, [facility] [address] [id number] [address] [place] [address], [place] [address] 17 Aug, 2014 [facility] [address] [id number] [address] [place] [address], [place] [address] 30 Sep, 2013 [facility] [address] [id number] [address] [place] [address], [place] [address] 30 Sep, 2013 [facility] [address] [id number] [address] [place] [address], [place] [address] 30 Sep, 2013 [facility] [address] [id number] [address] [place] [address] 30 Sep, 2013 [facility] [address] [id number] [address] [place] [address], [place] [address] 25 Sep, 2013 [facility] [address] [id number] [address] [place] [address], [place] [address] 25 Sep, 2013 [facility] [address] [id number] [address] [place] [address], [place] [address] 15 Sep, 2013 [facility] [address] [id number] [address] [place] [address] 15 Jul, 2014 [facility] [address] [id number] [address] [place] [address] Jul, [facility] [address] [id number] [address] [place] [address] Jul, [facility] [address] [id number] [address] [place] [address], [place] [address] Jun, [facility] [address] [id number] [address] [place] [address], [place] [address] Jun, [facility] [address] [id number] [address] [place] [address], [place] [address] Jun, [facility] [address] [id number] [address] [place] [address], [place] [address] Jun, [facility] [address] [id number] [address] [place] [address], [place] [address] Jun, [facility] [address] [id number] [address] [place] [address], [place] [address] Jun, [facility] [address] [id number] [address] [place] [address], [place] [address] Jun, [facility] [address] [id number] [address] [place] [address], [place] [address] Jun, [facility] [address] [id number] [address] [place] [address], [place] [address] Jun, [facility] [address] [id number] [address] [place] [address], [place] [address] Jun, [facility] [address] [id number] [address] [place] [address], [place] [address] Jun, [facility] [address] [id number] [address] [place] [address], [place] [address] Jun, [facility] [address] [id number] [address] [place] [address], [place] [address] Jun, [facility] [address] [id number] [address] [place] [address], [place] [address] Jun, [facility] [address] [id number] [address] [place] [address], [place] [address] Jun, [facility] [address] [id number] [address] [place] [address], [place] [address] Jun, [facility] [address] [id number] [address] [place] [address], [place] [address] Jun, [facility] [address] [id number] [address] [place] [address], [place] [address] Jun, [facility] [address] [id number] [address] [place] [address], [place] [address] Jun, [facility] [address] [id number] [address] [place] [address], [place] [address] Jun, [facility] [address] [id number] [address] [place] [address], [place] [address] Jun, [facility] [address] [id number] [address] [place] [address], [place] [address] Jun, [facility] [address] [id number] [address] [place] [address], [place] [address] May, [facility] [address] [id number] [address] [place] [address], [place] [address] May, [facility] [address] [id number] [address] [place] [address], [place] [address] May, [facility] [address] [id number] [address] [place] [address], [place] [address] May, [facility] [address] [id number] [address] [place] [address], [place] [address] May, [facility] [address] [id number] [address] [place] [address], [place] [address] May, [facility] [address] [id number] [address] [place] [address], [place] [address] May, 2013 [facility] [address] [id number] [address] [place] [address] May, 2013 [facility] [address] [id number] [address] [place] [address], [place] [address] May, 2013 [facility] [address] [id number] [address] [place] [address], [place] [address] May, 2013 [facility] [address] [id number] [address] [place] [address], [place] [address] May, 2013 [facility] [address] [id number] [address] [place] [address], [place] [address] May, [facility] [address] [id number] [address] [place] [address], [place] [address] May, [facility] [address] [id number] [address] [place] [address], [place] [address] Apr, [facility] [address] [id number] [address] [place] [address], [place] [address] Apr, [facility] [address] [id number] [address] [place] [address], [place] [address] Apr, [facility] [address] [id number] [address] [place] [address], [place] [address] Apr, [facility] [address] [id number] [address] [place] [address], [place] [address] Apr, [facility] [address] [id number] [address] [place] [address], [place] [address] Apr, [facility] [address] [id number] [address] [place] [address], [place] [address] Apr, [facility] [address] [id number] [address] [place] [address], [place] [address] Apr, [facility] [address] [id number] [address] [place] [address], [place] [address] Apr, [facility] [address] [id number] [address] [place] [address] March, [facility] [address] [id number] [address] [place] [address] March, [facility] [address] [id number] [address] [place] [address] March, [facility] [address] [id number] [address] [place] [address], [place] [address] March, [facility] [address] [id number] [address] [place] [address], [place] [address] March, [facility] [address] [id number] [address] [place] [address], [place] [address] March, [facility] [address] [id number] [address] [place] [address], [place] [address] March, [facility] [address] [id number] [address] [place] [address], [place] [address] March, [facility] [address] [id number] [address] [place] [address], [place] [address] March, [facility] [address] [id number] [address] [place] [address], [place] [address] March, [facility] [address] [id number] [address] [place] [address], [place] [address] March, [facility] [address] [id number] [address] [place] [address], [place] [address] March, [facility] [address] [id number] [address] [place] [address], [place] [address] March, [facility] [address] [id number] [address] [place] [address], [place] [address] March, [facility] [address] [id number] [address] [place] [address], [place] [address] March, [facility] [address] [id number] [address] [place] [address], [place] [address] March, [facility] [address] [id number] [address] [place] [address] March, [facility] [address] [id number] [address] [place] [address], [place] [address] March, [facility] [address] [id number] [address] [place] [address], [place] [address] March, [facility] [address] [id number] [address] [place] [address], [place] [address] March, [facility] [address] [id number] [address] [place] [address], [place] [address] Feb, [facility] [address] [id number] [address] [place] [address], [place] [address] Feb, [facility] [address] [id number] [address] [place] [address], [place] [address] Feb, [facility] [address] [id number] [address] [place] [address], [place] [address] Feb, [facility] [address] [id number] [address] [place] [address], [place] [address] Feb, [facility] [address] [id number] [address] [place] [address], [place] [address] Feb, [facility] [address] [id number] [address] [place] [address], [place] [address] Feb, [facility] [address] [id number] [address] [place] [address], [place] [address] Feb, [facility] [address] [id number] [address] [place] [address], [place] [address] Jan, [facility] [address] [id number] [address] [place] [address], [place] [address] Jan, [facility] [address] [id number] [address] [place] [address], [place] [address] Jan, [facility] [address] [id number] [address] [place] [address], [place] [address] 24 Jan, 2014 [facility] [address] [id number] [address] [place] [address] 13 Jan, 2014 [facility] [address] [id number] [address] [place] [address] 13 Jan, 2014 [facility] [address] [id number] [address] [place] [address], [place] [address] Jan, [facility] [address] [id number] [address] [place] [address], [place] [address] Jan, [facility] [address] [id number] [address] [place] [address], [place] [address] Jan, [facility] [address] [id number] [address] [place] [address], [place] [address] Jan, [facility] [address] [id number] [address] [place] [address], [place] [address] 27 Dec, 2013 [facility] [address] [id number] [address] [place] [address], [place] [address] 26 Dec, 2013 [facility] [address] [id number] [address] [place] [address], [place] [address] 26 Dec, 2013 [facility] [address] [id number] [address] [place] [address], [place] [address] 2013 [facility] [address] [id number] [address] [place] [address], [place] [address] 2013 [facility] [address] [id number] [address] [place] [address], [place] [address] 13 Dec, 2013 [facility] [address] [id number] [address] [place] [address], [place] [address] Dec, [facility] [address] [id number] [address] [place] [address], [place] [address] Dec, [facility] [address] [id number] [address] [place] [address], [place] [address] Nov, [facility] [address] [id number] [address] [place] [address], [place] [address] Nov, [facility] [address] [id number] [address] [place] [address], [place] [address] Nov, [facility] [address] [id number] [address] [place] [address], [place] [address] Nov, [facility] [address] [id number] [address] [place] [address], [place] [address] Nov, [facility] [address] [id number] [address] [place] [address], [place] [address] Nov, [facility] [address] [id number] [address] [place] [address], [place] [address] Nov, [facility] [address] [id number] [address] [place] [address], [place] [address] Nov, [facility] [address] [id number] [address] [place] [address], [place] [address] Nov, [facility] [address] [id number] [address] [place] [address], [place] [address] Nov, [facility] [address] [id number] [address] [place] [address], [place] [address] Nov, [facility] [address] [id number] [address] [place] [address], [place] [address] Nov, [facility] [address] [id number] [address] [place] [address], [place] [address] Nov, [facility] [address] [id number] [address] [place] [address], [place] [address] Oct, [facility] [address] [id number] [address] [place] [address], [place] [address] Oct, [facility] [address] [id number] [address] [place] [address], [place] [address] Oct, [facility] [address] [id number] [address] [place] [address], [place] [address] 26 Oct, 2013 [facility] [address] [id number] [address] [place] [address], [place] [address] Oct, [facility] [address] [id number] [address] [place] [address], [place] [address] Oct, [facility] [address] [id number] [address] [place] [address], [place] [address] 18 Oct, 2013 [facility] [address] [id number] [address] [place] [address], [place] [address] 18 Oct, 2013 [facility] [address] [id number] [address] [place] [address], [place] [address] Oct, [facility] [address] [id number] [address] [place] [address], [place] [address] Oct, [facility] [address] [id number] [address] [place] [address], [place] [address] Oct, [facility] [address] [id number] [address] [place] [address], [place] [address] Oct, [facility] [address] [id number] [address] [place] [address], [place] [address] 02 Oct, 2013 [facility] [address] [id number] [address] [place] [address], [place] [address] 02 Oct, 2013 [facility] [address] [id number] [address] [place] [address], [place] [address] 14 Sep, 2013 [facility] [address] [id number] [address] [place] [address], [place] [address] 14 Sep, 2013 [facility] [address] [id number] [address] [place] [address], [place] [address] 05 Sep, 2013 [facility] [address] [id number] [address] [place] [address], [place] [address] 05 Sep, 2013 [facility] [address] [id number] [address] [place] [address], [place] [address] 04 Sep, 2013 [facility] [address] [id number] [address] [place] [address], [place] [address] Sep, [facility] [address] [id number] [address] [place] [address], [place] [address] Sep, [facility] [address] [id number] [address] [place] [address], [place] [address] Sep, [facility] [address] [id number] [address] [place] [address], [place] [address] Sep, [facility] [address] [id number] [address] [place] [address], [place] [address] Sep, [facility] [address] [id number] [address] [place] [address], [place] [address] Aug, [facility] [address] [id number] [address] [place] [address], [place] [address] Aug, [facility] [address] [id number] [address] [place] [address], [place] [address] Aug, [facility] [address] [id number] [address] [place] [address], [place] [address] Aug, [facility] [address] [id number] [address] [place] [address], [place] [address] Aug, [facility] [address] [id number] [address] [place] [address], [place] [address] Aug, [facility] [address] [id number] [address] [place] [address], [place] [address] Aug, [facility] [address] [id number] [address] [place] [address], [place] [address] Aug, [facility] [address] [id number] [address] [place] [address], [place] [address] Aug, [facility] [address] [id number] [address] [place] [address], [place] [address] Aug, [facility] [address] [id number] [address] [place] [address], [place] [address] 18 Aug, 2013 [facility] [address] [id number] [address] [place] [address], [place] [address] 18 Aug, 2013 [facility] [address] [id number] [address] [place] [address], [place] [address] 18 Aug, 2013 [facility] [address] [id number] [address] [place] [address], [place] [address] 18 Aug, 2013 [facility] [address] [id number] [address] [place] [address], [place] [address] 17 Aug, 2013 [facility] [address] [id number] [address] [place] [address], [place] [address] 14 Aug, 2013 [facility] [address] [id number] [address] [place] [address], [place] [address] 14 Aug, 2013 [facility] [address] [id number] [address] [place] [address], [place] [address] Aug, [facility] [address] [id number] [address] [place] [address], [place] [address] 20 Jul, 2013 [facility] [address] [id number] [address] [place] [address], [place] [address] 19 Jul, 2012 [facility] [address] [id number] [address] [place] [address], [place] [address] 18 Jul, 2013 [facility] [address] [id number] [address] [place] [address], [place] [address] 11 Jul, 2013 [facility] [address] [id number] [address] [place] [address], [place] [address] 11 Jul, 2013 [facility] [address] [id number] [address] [place] [address], [place] [address] Jun, [facility] [address] [id number] [address] [place] [address], [place] [address] Jun, [facility] [address] [id number] [address] [place] [address], [place] [address] Jun, [facility] [address] [id number] [address] [place] [address], [place] [address] 15 Jun, 2013 [facility] [address] [id number] [address] [place] [address], [place] [address] Jun, [facility] [address] [id number] [address] [place] [address], [place] [address] Jun, [facility] [address] [id number] [address] [place] [address], [place] [address] Jun, [facility] [address] [id number] [address] [place] [address], [place] [address] Jun, [facility] [address] [id number] [address] [place] [address], [place] [address] Jun, [facility] [address] [id number] [address] [place] [address], [place] [address] Jun, [facility] [address] [id number] [address] [place] [address], [place] [address] May, [facility] [address] [id number] [address] [place] [address], [place] [address] May, [facility] [address] [id number] [address] [place] [address], [place] [address] May, [facility] [address] [id number] [address] [place] [address], [place] [address] May, [facility] [address] [id number] [address] [place] [address], [place] [address] May, [facility] [address] [id number] [address] [place] [address], [place] [address] 16 May, 2013 [facility] [address] [id number] [address] [place] [address], [place] [address] May, [facility] [address] [id number] [address] [place] [address], [place] [address] May, [facility] [address] [id number] [address] [place] [address], [place] [address] May, [facility] [address] [id number] [address] [place] [address], [place] [address] Apr, [facility] [address] [id number] [address] [place] [address], [place] [address] Apr, [facility] [address] [id number] [address] [place] [address], [place] [address] Apr, [facility] [address] [id number] [address] [place] [address], [place] [address] Apr, [facility] [address] [id number] [address] [place] [address], [place] [address] Apr, [facility] [address] [id number] [address] [place] [address], [place] [address] Apr, [facility] [address] [id number] [address] [place] [address], [place] [address] Apr, [facility] [address] [id number] [address] [place] [address], [place] [address] March, [facility] [address] [id number] [address] [place] [address], [place] [address] Feb, [facility] [address] [id number] [address] [place] [address], [place] [address] Feb, [facility] [address] [id number] [address] [place] [address], [place] [address] Feb, [facility] [address] [id number] [address] [place] [address], [place] [address] 28 Jan, 2013 [facility] [address] [id number] [address] [place] [address], [place] [address] Jan, [facility] [address] [id number] [address] [place] [address], [place] [address] 19 Jan, 2013 [facility] [address] [id number] [address] [place] [address], [place] [address] 14 Jan, 2013 [facility] [address] [id number] [address] [place] [address], [place] [address] 12 Jan, 2013 [facility] [address] [id number] [address] [place] [address], [place] [address] 08 Jan, 2013 [facility] [address] [id number] [address] [place] [address], [place] [address] 07 Jan, 2013 [facility] [address] [id number] [address] [place] [address], [place] [address] 04 Jan, 2013 [facility] [address] [id number] [address] [place] [address], [place] [address] 28 Dec, 2012 [facility] [address] [id number] [address] [place] [address], [place] [address] 25 Dec, 2012 [facility] [address] [id number] [address] [place] [address], [place] [address] 13 Dec, 2012 [facility] [address] [id number] [address] [place] [address], [place] [address] 11 Dec, 2012 [facility] [address] [id number] [address] [place] [address], [place] [address] 07 Dec, 2012 [facility] [address] [id number] [address] [place] [address], [place] [address] 06 Dec, 2012 [facility] [address] [id number] [address] [place] [address], [place] [address] 05 Dec, 2012 [facility] [address] [id number] [address] [place] [address], [place] [address] 31 Nov, 2012 [facility] [address] [id number] [address] [place] [address], [place] [address] 24 Nov, 2012 [facility] [address] [id number] [address] [place] [address], [place] [address] 18 Nov, 2012 [facility] [address] [id number] [address] [place] [address], [place] [address] 15 Nov, 2012 [facility] [address] [id number] [address] [place] [address], [place] [address] Nov, [facility] [address] [id number] [address] [place] [address], [place] [address] Nov, [facility] [address] [id number] [address] [place] [address], [place] [address] Nov, [facility] [address] [id number] [address] [place] [address], [place] [address] Oct, [facility] [address] [id number] [address] [place] [address], [place] [address] Oct, [facility] [address] [id number] [address] [place] [address], [place] [address] Oct, [facility] [address] [id number] [address] [place] [address], [place] [address] Oct, [facility] [address] [id number] [address] [place] [address], [place] [address] Oct, [facility] [address] [id number] [address] [place] [address], [place] [address] Oct, [facility] [address] [id number] [address] [place] [address], [place] [address] Oct, [facility] [address] [id number] [address] [place] [address], [place] [address] Oct, [facility] [address] [id number] [address] [place] [address], [place] [address] Oct, [facility] [address] [id number] [address] [place] [address], [place] [address] Oct, [facility] [address] [id number] [address] [place] [address], [place] [address] Oct, [facility] [address] [id number] [address] [place] [address], [place] [address] Oct, [facility] [address] [id number] [address] [place] [address], [place] [address] Sep, [facility] [address] [id number] [address] [place] [address] Sep, [facility] [address] [id number] [address] [place] [address], [place] [address] Sep, [facility] [address] [id number] [address] [place] [address] Sep, [facility] [address] [id number] [address] [place] [address], [place] [address] Sep, [facility] [address] [id number] [address] [place] [address] Sep, [facility] [address] [id number] [address] [place] [address], [place] [address] Sep, [facility] [address] [id number] [address] [place] [address], [place] [address] Sep, [facility] [address] [id number] [address] [place] [address] Sep, [facility] [address] [id number] [address] [place] [address] Sep, [facility] [address] [id number] [address] [place] [address] Sep, [facility] [address] [id number] [address] [place] [address] Aug, [facility] [address] [id number] [address] [place] [address] Aug, [facility] [address] [id number] [address] [place] [address] Aug, [facility] [address] [id number] [address] [place] [address] Aug, [facility] [address] [id number] [address] [place] [address] Aug, [facility] [address] [id number] [address] [place] [address], [place] [address] Aug, [facility] [address] [id number] [address] [place] [address], [place] [address] Aug, [facility] [address] [id number] [address] [place] [address], [place] [address] Aug, [facility] [address] [id number] [address] [place] [address], [place] [address] Aug, [facility] [address] [id number] [address] [place] [address], [place] [address] Aug, [facility] [address] [id number] [address] [place] [address], [place] [address] 22 Jul, 2012 [facility] [address] [id number] [address] [place] [address], [place] [address] 20 Jul, 2012 [facility] [address] [id number] [address] [place] [address], [place] [address] 10 Jul, 2012 [facility] [address] [id number] [address] [place] [address], [place] [address] Jul, [facility] [address] [id number] [address] [place] [address], [place] [address] 30 Jun, 2012 [facility] [address] [id number] [address] [place] [address], [place] [address] Jun, [facility] [address] [id number] [address] [place] [address], [place] [address] 16 Jun, 2012 [facility] [address] [id number] [address] [place] [address], [place] [address] Jun, [facility] [address] [id number] [address] [place] [address], [place] [address] Jun, [facility] [address] [id number] [address] [place] [address], [place] [address] Jun, [facility] [address] [id number] [address] [place] [address], [place] [address] Jun, [facility] [address] [id number] [address] [place] [address], [place] [address] May, [facility] [address] [id number] [address] [place] [address], [place] [address] May, [facility] [address] [id number] [address] [place] [address], [place] [address] May, [facility] [address] [id number] [address] [place] [address], [place] [address] May, [facility] [address] [id number] [address] [place] [address], [place] [address] May, [facility] [address] [id number] [address] [place] [address], [place] [address] Apr, [facility] [address] [id number] [address] [place] [address], [place] [address] Apr, [facility] [address] [id number] [address] [place] [address], [place] [address] Apr, [facility] [address] [id number] [address] [place] [address], [place] [address] Apr, [facility] [address] [id number] [address] [place] [address], [place] [address] Apr, [facility] [address] [id number] [address] [place] [address], [place] [address] March, [facility] [address] [id number] [address] [place] [address], [place] [address] March, [facility] [address] [id number] [address] [place] [address], [place] [address] March, [facility] [address] [id number] [address] [place] [address], [place] [address] March, [facility] [address] [id number] [address] [place] [address], [place] [address] March, [facility] [address] [id number] [address] [place] [address], [place] [address] March, [facility] [address] [id number] [address] [place] [address], [place] [address] March, [facility] [address] [id number] [address] [place] [address], [place] [address] March, [facility] [address] [id number] [address] [place] [address], [place] [address] March, [facility] [address] [id number] [address] [place] [address], [place] [address] March, [facility] [address] [id number] [address] [place] [address], [place] [address] Feb, [facility] [address] [id number] [address] [place] [address], [place] [address] Feb, [facility] [address] [id number] [address] [place] [address], [place] [address] Feb, [facility] [address] [id number] [address] [place] [address], [place] [address] Feb, [facility] [address] [id number] [address] [place] [address], [place] [address] Feb, [facility] [address] [id number] [address] [place] [address], [place] [address] Feb, [facility] [address] [id number] [address] [place] [address], [place] [address] Feb, [facility] [address] [id number] [address] [place] [address], [place] [address] Feb, [facility] [address] [id number] [address] [place] [address], [place] [address] Feb, [facility] [address] [id number] [address] [place] [address], [place] [address] Jan, [facility] [address] [id number] [address] [place] [address], [place] [address] Jan, [facility] [address] [id number] [address] [place] [address], [place] [address] Jan, [facility] [address] [id number] [address] [place] [address], [place] [address] Jan, [facility] [address] [id number] [address] [place] [address], [place] [address] Dec, [facility] [address] [id number] [address] [place] [address], [place] [address] Dec, [facility] [address] [id number] [address] [place] [address], [place] [address] Nov, [facility] [address] [id number] [address] [place] [address], [place] [address] Nov, [facility] [address] [id number] [address] [place] [address], [place] [address] Nov, [facility] [address] [id number] [address] [place] [address], [place] [address] Nov, [facility] [address] [id number] [address] [place] [address], [place] [address] Nov, [facility] [address] [id number] [address] [place] [address], [place] [address] Oct, [facility] [address] [id number] [address] [place] [address], [place] [address] Oct, [facility] [address] [id number] [address] [place] [address], [place] [address] Oct, [facility] [address] [id number] [address] [place] [address], [place] [address] Oct, [facility] [address] [id number] [address] [place] [address], [place] [address] Oct, [facility] [address] [id number] [address] [place] [address], [place] [address] Oct, [facility] [address] [id number] [address] [place] [address], [place] [address] Oct, [facility] [address] [id number] [address] [place] [address], [place] [address] Oct, [facility] [address] [facility] [id number] [address] [place] [address] Sep, IMMUNIZATIONS No Known Immunizations SOCIAL HISTORY [...] fever, discharged 11/27/2017 11/26/2017 Hospitalization History [facility] [place]- Went Unrepsonsive, Hit head 2017 Hospitalization History [facility] [place]- Back Pain 05/05/ 8
--- OUTSIDE RECORDS SUMMARY | 2020-06-18 15:10 | XMS REPORT ---
Author Author Sanjuanita Abdul Doctor Organization [facility] Address Unknown Phone Unavailable Care Team Providers Care Laminator Preforms Name Role Phone Migration, Doctor Unavailable Unavailable PROBLEMS Type Condition ICD9-CM Code [id number] Code Onset Dates Condition S tatus SNOMED Code Problem Coronary artery disease I25.10 Active 57389264 Problem Hypertension I10 Active 1773578 3 Problem Other chronic pain G89.29 Active 8 3076430 Problem Hyperlipidemia E78.5 Active 92100 004 Problem Type 2 diabetes mellitus wit hout complication, without long-term current use of insulin E11.9 Active 236497217 Problem Low back pain M54.5 Active 983978 009 Problem Pharyngeal dysphagia R13.13 Active [id number] Problem Anxiety F41.9 Active 68466871 Problem Peripheral vascular disease I73.9 Ac tive 924623603 Problem Suprapubic catheter Z93.59 Active 068614429 Problem Reactive depression F32.9 Active 09898261 Problem Neurogenic bladder N31.9 Active 3 50718964 Problem Ventral hernia without obstruction or gangrene K43 .9 Active 792924800 Problem Insomnia G47.00 Active 044039887 Problem Paroxysmal atrial fibrillation I48.0 Active 499385668 Problem Postmenopausal atrophic vaginitis N95.2 Active 05993359 Problem Encounter for suprapubic catheter care Z43.5 Active [id number] ALLERGIES No Information ENCOUNTERS Encounter Location Date Diagnosis Via [facility] [address] [place] [id number] Aug, Suprapubic catheter Z93.59 [facility] [address] [id number] [address] [place] [phone] Jul, Strain of right shoulder, scherer bsequent encounter S46.911D and Anxiety F41.9 [facility] [address] [id number] [address] [place] [phone] Jul, Anxiety F41.9 [facility] [address] [id number] [address] [place] [phone] Jun, [facility] [address] [id number] [address] [place] [phone] Jun, [facility] [address] [id number] [address] [place] [phone] Jun, [facility] [address] [id number] [address] [place] [phone] Jun, Strain of right shoulder, scherer bsequent encounter S46.911D [facility] [address] [id number] [address] [place] [phone] Jun, Strain of right shoulder, scherer bsequent encounter S46.911D [facility] [address] [id number] [address] [place] [phone] Jun, Anxiety F41.9 [facility] [address] [place] [id number] Jun, Neurogenic bladder N31.9 and Anxiety F41 .9 [facility] [address] [place] [id number] May, Anxiety F41.9 [place] [address] [id number] [address] [place] [phone] May, Dysuria R30.0 [place] [address] [id number] [address] [place] [address] May, Strain of right shoulder, scherer bsequent encounter S46.911D and Anxiety F41.9 [place] [address] [id number] [address] [place] [address] Apr, [facility] [address] [place] [id number] Apr, Strain of right shoulder, subsequent enc ounter S46.911D [facility] [address] [id number] [address] [place] [phone] Apr, Strain of right shoulder, scherer bsequent encounter S46.911D and Anxiety F41.9 [facility] [address] [place] [id number] 13 Apr, 2019 Type 2 diabetes mellitus without complic ation, without long-term current use of insulin E11.9 and Neurogenic bladder N31.9 [facility] [address] [place] [id number] 11 Apr, 2019 Strain of right shoulder, subsequent enc ounter S46.911D ; History of GI bleed Z87.19 ; Neurogenic bladder N31.9 and Reactive depression F32.9 [facility] [address] [id number] [address] [place] [id number] Apr, Acute pain of left shoulder M25.512 [place] [address] [id number] [address] [place] [phone] Apr, [place] [address] [id number] [address] [place] [phone] Apr, Anxiety F41.9 and 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 Via [facility] [address] [place] [id number] March, Gastrointestinal hemorrhage associated w ith acute gastritis K29.01 [facility] [address] [id number] [address] [place] [phone] March, Via [facility] [address] [place] [id number] March, Bronchitis J40 [facility] [address] [id number] [address] [place] [id number] March, Cough R05 [facility] [address] [id number] [address] [place] [id number] March, Other chronic pain G89.29 [facility] [address] [id number] [address] [place] [id number] March, Anxiety F41.9 [facility] [address] [id number] [address] [place] [id number] March, [facility] [address] [id number] [address] [place] [id number] Feb, Other chronic pain G89.29 [facility] [address] [id number] [address] [place] [phone] Feb, Anxiety F41.9 [facility] [address] [id number] [address] [place] [id number] Feb, Other chronic pain G89.29 [facility] [address] [place] [id number] Feb, Neurogenic bladder N31.9 and Suprapubic catheter Z93.59 [facility] [address] [id number] [address] [place] [phone] Jan, Anxiety F41.9 [facility] [address] [id number] [address] [place] [address] Dec, Anxiety F41.9 [facility] [address] [id number] [address] [place] [id number] Dec, Other chronic pain G89.29 an d Anxiety F41.9 [facility] [address] [id number] [address] [place] [phone] Dec, [facility] [address] [place] [id number] Dec, Neurogenic bladder N31.9 and Suprapubic catheter Z93.59 [facility] [address] [id number] [address] [place] [id number] Nov, Other chronic pain G89.29 an d Anxiety F41.9 [facility] [address] [id number] [address] [place] [phone] Nov, [facility] [address] [place] [id number] Nov, Suprapubic catheter Z93.59 [facility] [address] [id number] [address] [place] [phone] Oct, Other chronic pain G89.29 an d Anxiety F41.9 [facility] [address] [id number] [address] [place] [phone] Oct, [facility] [address] [id number] [address] [place] [phone] Oct, Suprapubic catheter Z93.59 [facility] [address] [id number] [address] [place] [phone] Oct, Via [facility] [address] [place] [id number] Oct, [facility] [address] [id number] [address] [place] [phone] Oct, Anxiety F41.9 [facility] [address] [id number] [address] [place] [phone] Oct, Anxiety F41.9 [facility] [address] [place] [id number] Oct, Other chronic pain G89.29 [facility] [address] [id number] [address] [place] [id number] Sep, Other chronic pain G89.29 Via [facility] [address] [place] [id number] Sep, Suprapubic catheter Z93.59 and Cervicalg ia M54.2 [facility] [address] [id number] [address] [place] [phone] Sep, [facility] [address] [id number] [address] [place] [phone] Sep, [facility] [address] [id number] [address] [place] [phone] Sep, Via [facility] [facility] [address] [place] [id number] Aug, Cystitis N30.90 [facility] [address] [id number] [address] [place] [phone] Aug, [facility] [address] [id number] [address] [place] [phone] Aug, Other chronic pain G89.29 [facility] [address] [id number] [address] [place] [phone] Aug, Via [facility] [address] [place] [id number] Aug, Encounter for suprapubic catheter care Z 43.5 [facility] [address] [id number] [address] [place] [id number] Jul, Via [facility] [address] [place] [id number] Jul, [facility] [address] [id number] [address] [place] [id number] Jul, Other chronic pain G89.29 [facility] [address] [id number] [address] [place] [phone] Jul, [facility] [address] [id number] [address] [place] [phone] Jul, Via [facility] [address] [place] [id number] Jun, Postmenopausal atrophic vaginitis N95.2 [facility] [address] [id number] [address] [place] [phone] Jun, Other chronic pain G89.29 [facility] [address] [id number] [address] [place] [phone] Jun, [facility] [address] [place] [id number] May, Anxiety F41.9 ; Type 2 diabetes mellitus without complication, without long-term current use of insulin E11.9 ; Hypertension I10 ; Low back pain M54.5 ; Paroxysmal atrial fibrillation I48.0 and 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 [facility] [address] [id number] [address] [place] [id number] May, Other chronic pain G89.29 [facility] [address] [place] [id number] May, Low back pain M54.5 [facility] [address] [id number] [address] [place] [phone] May, [facility] [address] [id number] [address] [place] [id number] Apr, Other chronic pain G89.29 [facility] [address] [id number] [address] [place] [phone] Apr, [facility] [address] [id number] [address] [place] [phone] Apr, [facility] [address] [place] [id number] Apr, Closed compression fracture of L3 lumbar vertebra with routine healing, subsequent encounter S32.030D [facility] [address] [place] [id number] Apr, Low back pain M54.5 [facility] [address] [place] [id number] Apr, Coccydynia M53.3 [facility] [address] [id number] [address] [place] [phone] March, [facility] [address] [id number] [address] [place] [id number] March, Other chronic pain G89.29 [facility] [address] [id number] [address] [place] [phone] March, [facility] [address] [id number] [address] [place] [id number] March, [facility] [address] [id number] [address] [place] [id number] Feb, [facility] [address] [id number] [address] [place] [phone] Feb, Other chronic pain G89.29 Via [employer] [address] [place] [id number] Feb, Other chronic pain G89.29 and Anxiety F4 1.9 [facility] [address] [facility] [id number] [address] [place] [phone] Feb, [facility] [address] [facility] [id number] [address] [place] [phone] Jan, [facility] [address] [facility] [id number] [address] [place] [id number] Jan, [facility] [address] [facility] [id number] [address] [place] [phone] Jan, [facility] [address] [facility] [id number] [address] [place] [phone] Jan, [facility] [address] [facility] [id number] [address] [place] [phone] Dec, Via [facility] [address] [place] [id number] Dec, Peripheral vascular disease I73.9 ; 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 ; Other chronic pain G89.29 ; Anxiety F41.9 ; Reactive depression F32.9 ; Insomnia G47.00 and Type 2 diabetes mellitus without complication, without long-term current use of insulin E11.[address] [id number] [address] Nov, [facility] [address] [id number] [place] [id number] Nov, Anxiety F41.9 [facility] [address] [facility] [id number] [address] [place] [phone] Nov, [facility] [address] [id number] [place] [id number] Nov, Anxiety F41.9 [facility] [address] [place] [id number] Nov, Status post surgery Z98.890 ; Confused R 41.0 ; Anxiety F41.9 and Other chronic pain G89.29 [place] [address] [id number] [place] [id number] Nov, Other chronic pain G89.29 [facility] [address] [id number] [address] [place] [address], [place] [address] Oct, [facility] [address] [id number] [place] [id number] Oct, Other chronic pain G89.29 [facility] [address] [id number] [address] [place] [address], [place] [address] Oct, Anxiety F41.9 [facility] [address] [id number] [place] [id number] Sep, Other chronic pain G89.29 [facility] [address] [id number] [place] [id number] Sep, Via [facility] [address] [place] [id number] Aug, Dysuria R30.0 and Anxiety F41.9 [facility] [address] [id number] [address] [place] [phone] Aug, [facility] [address] [id number] [place] [id number] Aug, Other chronic pain G89.29 [facility] [address] [id number] [address] [place] [id number] Jul, Other chronic pain G89.29 [facility] [address] [id number] [place] [id number] Jun, [facility] [address] [id number] [place] [id number] Jun, Other chronic pain G89.29 [facility] [address] [id number] [address] [place] [phone] Jun, [facility] [address] [facility] [id number] [address] [place] [address] May, Other chronic pain G89.29 [facility] [address] [id number] [address] [place] [phone] Apr, Other chronic pain G89.29 [facility] [address] [place] [id number] Apr, Reactive depression F32.9 and Pharyngeal dysphagia R13.13 [facility] [address] [id number] [address] [place] [id number] Apr, Urinary tract infection with out hematuria, site unspecified N39.0 [facility] [address] [id number] [address] [place] [phone] March, Other chronic pain G89.29 [facility] [address] [id number] [address] [place] [id number] Feb, Other chronic pain G89.29 [facility] [address] [id number] [address] [place] [id number] Feb, [facility] [address] [id number] [place] [id number] Feb, [facility] [address] [place] [id number] Feb, Dysuria R30.0 and Ventral hernia without obstruction or gangrene K43.9 [facility] [address] [id number] [address] [place] [address] Jan, Other chronic pain G89.29 [facility] [address] [id number] [place] [id number] Dec, Other chronic pain G89.29 [facility] [address] [id number] [address] [place] [id number] Nov, Other chronic pain G89.29 [facility] [address] [place] [id number] Nov, Lymphadenitis I88.9 [facility] [address] [id number] [address] [place] [phone] Nov, Other chronic pain G89.29 [facility] [address] [id number] [address] [place] [address] Nov[facility] [address] [id number] [place] [facility] [place] [id number] Nov, Other chronic pain G89.29 [facility] [address] [place] [id number] Oct, Low back pain M54.5 ; Hypertension I10 a nd Type 2 diabetes mellitus without complication, without long-term current use of insulin E11.9 [facility] [address] [id number] [address] [place] [phone] Oct, [facility] [address] [id number] [address] [place] [id number] Oct, [facility] [address] [id number] [address] [place] [phone] Oct, [facility] [address] [id number] [address] [place] [phone] Oct, [facility] [address] [id number] [address] [place] [address] Sep, [facility] [address] [id number] [address] [place] [id number] Sep, [facility] [address] [id number] [address] [place] [id number] Aug, Other chronic pain G89.29 [facility] [address] [id number] [address] [place] [id number] Jul, [facility] [address] [id number] [address] [place] [address] Jul, [facility] [address] [id number] [address] [place] [id number] Jul, [facility] [address] [id number] [address] [place] [id number] Jun, [facility] [address] [id number] [address] [place] [phone] 15 Jun, 2016 [facility] [address] [place] [id number] Jun, Low back pain M54.5 ; Other chronic pain G89.29 and Coronary artery disease I25.10 [facility] [address] [id number] [address] [place] [phone] 08 Jun, 2016 [facility] [address] [id number] [address] [place] [id number] May, [facility] [address] [id number] [address] [place] [phone] May, [facility] [address] [id number] [address] [place] [address] May, Other chronic pain G89.29 [facility] [address] [id number] [address] [place] [id number] May, [facility] [address] [id number] [address] [place] [id number] Apr, [facility] [address] [id number] [address] [place] [id number] 17 Apr, 2016 Acute cystitis without hemat uria N30.00 [facility] [address] [id number] [address] [place] [phone] 16 Apr, 2016 Acute cystitis without hemat uria N30.00 ; Coronary artery disease I25.10 ; Low back pain M54.5 and Other chronic pain G89.29 [facility] [address] [id number] [address] [place] [address] 13 Apr, 2016 Other chronic pain G89.29 [facility] [address] [id number] [address] [place] [address] March, Other chronic pain G89.29 [facility] [address] [id number] [address] [place] [id number] Feb, [facility] [address] [id number] [address] [place] [id number] 15 Feb, 2016 Arthritis M19.90 [facility] [address] [id number] [address] [place] [id number] 13 Feb, 2016 [facility] [address] [id number] [address] [place] [phone] 30 Jan, 2016 [facility] [address] [id number] [address] [place] [phone] Jan, [facility] [address] [id number] [address] [place] [id number] Jan, Other chronic pain G89.29 [facility] [address] [id number] [address] [place] [id number] Jan, Hypertension I10 ; Coronary artery disease I25.10 and Insomnia G47.00 [facility] [address] [id number] [address] [place] [id number] Jan, [facility] [address] [id number] [address] [place] [id number] Dec, Right hip pain M25.551 [facility] [address] [id number] [address] [place] [id number] Dec, [facility] [address] [id number] [address] [place] [id number] Dec, [facility] [address] [id number] [address] [place] [phone] Dec, [facility] [address] [id number] [address] [place] [id number] Dec, Other chronic pain G89.29 [facility] [address] [id number] [address] [place] [id number] Dec, [facility] [address] [id number] [address] [place] [id number] Nov, [facility] [address] [id number] [address] [place] [address] Nov, Other chronic pain G89.29 [facility] [address] [id number] [address] [place] [id number] Nov, Right hip pain M25.551 and C oronary artery disease I25.10 [facility] [address] [id number] [address] [place] [id number] Nov, Other chronic pain G89.29 [facility] [address] [id number] [address] [place] [phone] Oct, [facility] [address] [id number] [address] [place] [id number] Oct, [facility] [address] [id number] [address] [place] [id number] Sep, [facility] [address] [id number] [address] [place] [id number] Sep, [facility] [address] [id number] [address] [place] [phone] Aug, [facility] [address] [id number] [address] [place] [id number] Aug, Hypertension I10 ; Coronary artery disease I25.10 and Arthritis M19.90 [facility] [address] [id number] [address] [place] [id number] Jun, [facility] [address] [id number] [address] [place] [id number] Jun, Essential hypertension, jayson gn 401.1 ; Other chronic pain 338.29 and Chronic airway obstruction, not elsewhere classified 496 [facility] [address] [id number] [address] [place] [id number] Jun, [facility] [address] [id number] [address] [place] [id number] Jun, [facility] [address] [id number] [address] [place] [phone] Jun, [facility] [address] [id number] [address] [place] [address], [place] [id number] May, [facility] [address] [id number] [address] [place] [address], [place] [id number] May, [facility] [address] [id number] [address] [place] [address], [place] [id number] Apr, [facility] [address] [id number] [address] [place] [id number] Apr, [facility] [address] [id number] [address] [place] [address], [place] [id number] Apr, [facility] [address] [id number] [address] [place] [address], [place] [id number] March, [facility] [address] [id number] [address] [place] [address], [place] [id number] March, [facility] [address] [id number] [address] [place] [address], [place] [id number] March, [facility] [address] [id number] [address] [place] [address], [place] [id number] March, [facility] [address] [id number] [address] [place] [address] [address] March, [facility] 527.2 [facility] [address] [id number] [address] [place] [address], [place] [address] Feb, [facility] [address] [id number] [address] [place] [address] Feb, [facility] [address] [id number] [address] [place] [address], [place] [address] Feb, [facility] [address] [id number] [address] [place] [address], [place] [address] Feb, [facility] [address] [id number] [address] [place] [address] Feb, [facility] [address] [id number] [address] [place] [address], [place] [address] Jan, [facility] [address] [id number] [address] [place] [address], [place] [address] Jan, [facility] [address] [id number] [address] [place] [address], [place] [address] Jan, [facility] [address] [id number] [address] [place] [address], [place] [address] Jan, [facility] [address] [id number] [address] [place] [address], [place] [address] Jan, [facility] [address] [id number] [address] [place] [address], [place] [address] Jan, [facility] [address] [id number] [address] [place] [address], [place] [address] Dec, [facility] [address] [id number] [address] [place] [address], [place] [address] Dec, [facility] [address] [id number] [address] [place] [address], [place] [address] Dec, [facility] [address] [id number] [address] [place] [address], [place] [address] Dec, [facility] [address] [id number] [address] [place] [address], [place] [address] Dec, [facility] [address] [id number] [address] [place] [address], [place] [address] Dec, [facility] [address] [id number] [address] [place] [address], [place] [address] Nov, [facility] [address] [id number] [address] [place] [address], [place] [address] Nov, [facility] [address] [id number] [address] [place] [address], [place] [address] Nov, [facility] [address] [id number] [address] [place] [address], [place] [address] Nov, [facility] [address] [id number] [address] [place] [address], [place] [address] Nov, [facility] [address] [id number] [address] [place] [address], [place] [address] Nov, [facility] [address] [id number] [address] [place] [address], [place] [address] Nov, [facility] [address] [id number] [address] [place] [address], [place] [address] Nov, [facility] [address] [id number] [address] [place] [address], [place] [address] Nov, [facility] [address] [id number] [address] [place] [address], [place] [address] Nov, [facility] [address] [id number] [address] [place] [address], [place] [address] Nov, [facility] [address] [id number] [address] [place] [address], [place] [address] Nov, [facility] [address] [id number] [address] [place] [address], [place] [address] Nov, [facility] [address] [id number] [address] [place] [address], [place] [address] Nov, [facility] [address] [id number] [address] [place] [address], [place] [address] Oct, [facility] [address] [id number] [address] [place] [address], [place] [address] Oct, [facility] [address] [id number] [address] [place] [address], [place] [address] Oct, [facility] [address] [id number] [address] [place] [address], [place] [address] Oct, [facility] [address] [id number] [address] [place] [address], [place] [address] Oct, [facility] [address] [id number] [address] [place] [address], [place] [address] Oct, [facility] [address] [id number] [address] [place] [address], [place] [address] Oct, [facility] [address] [id number] [address] [place] [address], [place] [address] Oct, [facility] [address] [id number] [address] [place] [address], [place] [address] Oct, [facility] [address] [id number] [address] [place] [address], [place] [address] Sep, [facility] [address] [id number] [address] [place] [address], [place] [address] Sep, [facility] [address] [id number] [address] [place] [address], [place] [address] Sep, [facility] [address] [id number] [address] [place] [address], [place] [address] Sep, [facility] [address] [id number] [address] [place] [address], [place] [address] Sep, [facility] [address] [id number] [address] [place] [address], [place] [address] Sep, [facility] [address] [id number] [address] [place] [address], [place] [address] Sep, [facility] [address] [id number] [address] [place] [address], [place] [address] Sep, [facility] [address] [id number] [address] [place] [address], [place] [address] Sep, [facility] [address] [id number] [address] [place] [address], [place] [address] Sep, [facility] [address] [id number] [address] [place] [address], [place] [address] Sep, [facility] [address] [id number] [address] [place] [address], [place] [address] Sep, [facility] [address] [id number] [address] [place] [address], [place] [address] 30 Aug, 2014 [facility] [address] [id number] [address] [place] [address], [place] [address] 30 Aug, 2014 [facility] [address] [id number] [address] [place] [address], [place] [address] 29 Aug, 2014 [facility] [address] [id number] [address] [place] [address], [place] [address] 29 Aug, 2014 [facility] [address] [id number] [address] [place] [address], [place] [address] Aug, [facility] [address] [id number] [address] [place] [address], [place] [address] Aug, [facility] [address] [id number] [address] [place] [address], [place] [address] Aug, [facility] [address] [id number] [address] [place] [address], [place] [address] 17 Aug, 2014 [facility] [address] [id number] [address] [place] [address], [place] [address] 30 Sep, 2013 [facility] [address] [id number] [address] [place] [address], [place] [address] 30 Sep, 2013 [facility] [address] [id number] [address] [place] [address], [place] [address] 30 Sep, 2013 [facility] [address] [id number] [address] [place] [address] 30 Sep, 2013 [facility] [address] [id number] [address] [place] [address], [place] [address] 25 Sep, 2013 [facility] [address] [id number] [address] [place] [address], [place] [address] 25 Sep, 2013 [facility] [address] [id number] [address] [place] [address], [place] [address] 15 Sep, 2013 [facility] [address] [id number] [facility] [place] [address] 15 Jul, 2014 [facility] [address] [id number] [facility] [place] [address] Jul, [facility] [address] [id number] [facility] [place] [address] Jul, [facility] [address] [id number] [address] [place] [address], [place] [address] Jun, [facility] [address] [id number] [address] [place] [address], [place] [address] Jun, [facility] [address] [id number] [address] [place] [address], [place] [address] Jun, [facility] [address] [id number] [address] [place] [address], [place] [address] Jun, [facility] [address] [id number] [address] [place] [address], [place] [address] Jun, [facility] [address] [id number] [address] [place] [address], [place] [address] Jun, [facility] [address] [id number] [address] [place] [address], [place] [address] Jun, [facility] [address] [id number] [address] [place] [address], [place] [address] Jun, [facility] [address] [id number] [address] [place] [address], [place] [address] Jun, [facility] [address] [id number] [address] [place] [address], [place] [address] Jun, [facility] [address] [id number] [address] [place] [address], [place] [address] Jun, [facility] [address] [id number] [address] [place] [address], [place] [address] Jun, [facility] [address] [id number] [address] [place] [address], [place] [address] Jun, [facility] [address] [id number] [address] [place] [address], [place] [address] Jun, [facility] [address] [id number] [address] [place] [address], [place] [address] Jun, [facility] [address] [id number] [address] [place] [address], [place] [address] Jun, [facility] [address] [id number] [address] [place] [address], [place] [address] Jun, [facility] [address] [id number] [address] [place] [address], [place] [address] Jun, [facility] [address] [id number] [address] [place] [address], [place] [address] Jun, [facility] [address] [id number] [address] [place] [address], [place] [address] Jun, [facility] [address] [id number] [address] [place] [address], [place] [address] Jun, [facility] [address] [id number] [address] [place] [address], [place] [address] Jun, [facility] [address] [id number] [address] [place] [address], [place] [address] May, [facility] [address] [id number] [address] [place] [address], [place] [address] May, [facility] [address] [id number] [address] [place] [address], [place] [address] May, [facility] [address] [id number] [address] [place] [address], [place] [address] May, [facility] [address] [id number] [address] [place] [address], [place] [address] May, [facility] [address] [id number] [address] [place] [address], [place] [address] May, [facility] [address] [id number] [address] [place] [address], [place] [address] May, 2013 [facility] [address] [id number] [facility] [place] [address] May, 2013 [facility] [address] [id number] [address] [place] [address], [place] [address] May, 2013 [facility] [address] [id number] [address] [place] [address], [place] [address] May, 2013 [facility] [address] [id number] [address] [place] [address], [place] [address] May, 2013 [facility] [address] [id number] [address] [place] [address], [place] [address] May, [facility] [address] [id number] [address] [place] [address], [place] [address] May, [facility] [address] [id number] [address] [place] [address], [place] [address] Apr, [facility] [address] [id number] [address] [place] [address], [place] [address] Apr, [facility] [address] [id number] [address] [place] [address], [place] [address] Apr, [facility] [address] [id number] [address] [place] [address], [place] [address] Apr, [facility] [address] [id number] [address] [place] [address], [place] [address] Apr, [facility] [address] [id number] [address] [place] [address], [place] [address] Apr, [facility] [address] [id number] [address] [place] [address], [place] [address] Apr, [facility] [address] [id number] [address] [place] [address], [place] [address] Apr, [facility] [address] [id number] [address] [place] [address], [place] [address] Apr, [facility] [address] [id number] [address] [place] [address] March, [facility] [address] [id number] [address] [place] [address] March, [facility] [address] [id number] [address] [place] [address] March, [facility] [address] [id number] [address] [place] [address], [place] [address] March, [facility] [address] [id number] [address] [place] [address], [place] [address] March, [facility] [address] [id number] [address] [place] [address], [place] [address] March, [facility] [address] [id number] [address] [place] [address], [place] [address] March, [facility] [address] [id number] [address] [place] [address], [place] [address] March, [facility] [address] [id number] [address] [place] [address], [place] [address] March, [facility] [address] [id number] [address] [place] [address], [place] [address] March, [facility] [address] [id number] [address] [place] [address], [place] [address] March, [facility] [address] [id number] [address] [place] [address], [place] [address] March, [facility] [address] [id number] [address] [place] [address], [place] [address] March, [facility] [address] [id number] [address] [place] [address], [place] [address] March, [facility] [address] [id number] [address] [place] [address], [place] [address] March, [facility] [address] [id number] [address] [place] [address], [place] [address] March, [facility] [address] [id number] [address] [place] [address] March, [facility] [address] [id number] [address] [place] [address], [place] [address] March, [facility] [address] [id number] [address] [place] [address], [place] [address] March, [facility] [address] [id number] [address] [place] [address], [place] [address] March, [facility] [address] [id number] [address] [place] [address], [place] [address] Feb, [facility] [address] [id number] [address] [place] [address], [place] [address] Feb, [facility] [address] [id number] [address] [place] [address], [place] [address] Feb, [facility] [address] [id number] [address] [place] [address], [place] [address] Feb, [facility] [address] [id number] [address] [place] [address], [place] [address] Feb, [facility] [address] [id number] [address] [place] [address], [place] [address] Feb, [facility] [address] [id number] [address] [place] [address], [place] [address] Feb, [facility] [address] [id number] [address] [place] [address], [place] [address] Feb, [facility] [address] [id number] [address] [place] [address], [place] [address] Jan, [facility] [address] [id number] [address] [place] [address], [place] [address] Jan, [facility] [address] [id number] [address] [place] [address], [place] [address] Jan, [facility] [address] [id number] [address] [place] [address], [place] [address] 24 Jan, 2014 [facility] [address] [id number] [facility] [place] [address] 13 Jan, 2014 [facility] [address] [id number] [facility] [place] [address] 13 Jan, 2014 [facility] [address] [id number] [address] [place] [address], [place] [address] Jan, [facility] [address] [id number] [address] [place] [address], [place] [address] Jan, [facility] [address] [id number] [address] [place] [address], [place] [address] Jan, [facility] [address] [id number] [address] [place] [address], [place] [address] Jan, [facility] [address] [id number] [address] [place] [address], [place] [address] 27 Dec, 2013 [facility] [address] [id number] [address] [place] [address], [place] [address] 26 Dec, 2013 [facility] [address] [id number] [address] [place] [address], [place] [address] 26 Dec, 2013 [facility] [address] [id number] [address] [place] [address] [address] 2013 [facility] [address] [id number] [address] [place] [address] [address] 2013 [facility] [address] [id number] [address] [place] [address], [place] [address] 13 Dec, 2013 [facility] [address] [id number] [address] [place] [address], [place] [address] Dec, [facility] [address] [id number] [address] [place] [address], [place] [address] Dec, [facility] [address] [id number] [address] [place] [address], [place] [address] Nov, [facility] [address] [id number] [address] [place] [address], [place] [address] Nov, [facility] [address] [id number] [address] [place] [address], [place] [address] Nov, [facility] [address] [id number] [address] [place] [address], [place] [address] Nov, [facility] [address] [id number] [address] [place] [address], [place] [address] Nov, [facility] [address] [id number] [address] [place] [address], [place] [address] Nov, [facility] [address] [id number] [address] [place] [address], [place] [address] Nov, [facility] [address] [id number] [address] [place] [address], [place] [address] Nov, [facility] [address] [id number] [address] [place] [address], [place] [address] Nov, [facility] [address] [id number] [address] [place] [address], [place] [address] Nov, [facility] [address] [id number] [address] [place] [address], [place] [address] Nov, [facility] [address] [id number] [address] [place] [address], [place] [address] Nov, [facility] [address] [id number] [address] [place] [address], [place] [address] Nov, [facility] [address] [id number] [address] [place] [address], [place] [address] Oct, [facility] [address] [id number] [address] [place] [address], [place] [address] Oct, [facility] [address] [id number] [address] [place] [address], [place] [address] Oct, [facility] [address] [id number] [address] [place] [address], [place] [address] 26 Oct, 2013 [facility] [address] [id number] [address] [place] [address], [place] [address] Oct, [facility] [address] [id number] [address] [place] [address], [place] [address] Oct, [facility] [address] [id number] [address] [place] [address], [place] [address] 18 Oct, 2013 [facility] [address] [id number] [address] [place] [address], [place] [address] 18 Oct, 2013 [facility] [address] [id number] [address] [place] [address], [place] [address] Oct, [facility] [address] [id number] [address] [place] [address], [place] [address] Oct, [facility] [address] [id number] [address] [place] [address], [place] [address] Oct, [facility] [address] [id number] [address] [place] [address], [place] [address] Oct, [facility] [address] [id number] [address] [place] [address], [place] [address] 02 Oct, 2013 [facility] [address] [id number] [address] [place] [address], [place] [address] 02 Oct, 2013 [facility] [address] [id number] [address] [place] [address], [place] [address] 14 Sep, 2013 [facility] [address] [id number] [address] [place] [address], [place] [address] 14 Sep, 2013 [facility] [address] [id number] [address] [place] [address], [place] [address] 05 Sep, 2013 [facility] [address] [id number] [address] [place] [address], [place] [address] 05 Sep, 2013 [facility] [address] [id number] [address] [place] [address], [place] [address] 04 Sep, 2013 [facility] [address] [id number] [address] [place] [address], [place] [address] Sep, [facility] [address] [id number] [address] [place] [address], [place] [address] Sep, [facility] [address] [id number] [address] [place] [address], [place] [address] Sep, [facility] [address] [id number] [address] [place] [address], [place] [address] Sep, [facility] [address] [id number] [address] [place] [address], [place] [address] Sep, [facility] [address] [id number] [address] [place] [address], [place] [address] Aug, [facility] [address] [id number] [address] [place] [address], [place] [address] Aug, [facility] [address] [id number] [address] [place] [address], [place] [address] Aug, [facility] [address] [id number] [address] [place] [address], [place] [address] Aug, [facility] [address] [id number] [address] [place] [address], [place] [address] Aug, [facility] [address] [id number] [address] [place] [address], [place] [address] Aug, [facility] [address] [id number] [address] [place] [address], [place] [address] Aug, [facility] [address] [id number] [address] [place] [address], [place] [address] Aug, [facility] [address] [id number] [address] [place] [address], [place] [address] Aug, [facility] [address] [id number] [address] [place] [address], [place] [address] Aug, [facility] [address] [id number] [address] [place] [address], [place] [address] 18 Aug, 2013 [facility] [address] [id number] [address] [place] [address], [place] [address] 18 Aug, 2013 [facility] [address] [id number] [address] [place] [address], [place] [address] 18 Aug, 2013 [facility] [address] [id number] [address] [place] [address], [place] [address] 18 Aug, 2013 [facility] [address] [id number] [address] [place] [address], [place] [address] 17 Aug, 2013 [facility] [address] [id number] [address] [place] [address], [place] [address] 14 Aug, 2013 [facility] [address] [id number] [address] [place] [address], [place] [address] 14 Aug, 2013 [facility] [address] [id number] [address] [place] [address], [place] [address] Aug, [facility] [address] [id number] [address] [place] [address], [place] [address] 20 Jul, 2013 [facility] [address] [id number] [address] [place] [address], [place] [address] 19 Jul, 2012 [facility] [address] [id number] [address] [place] [address], [place] [address] 18 Jul, 2013 [facility] [address] [id number] [address] [place] [address], [place] [address] 11 Jul, 2013 [facility] [address] [id number] [address] [place] [address], [place] [address] 11 Jul, 2013 [facility] [address] [id number] [address] [place] [address], [place] [address] Jun, [facility] [address] [id number] [address] [place] [address], [place] [address] Jun, [facility] [address] [id number] [address] [place] [address], [place] [address] Jun, [facility] [address] [id number] [address] [place] [address], [place] [address] 15 Jun, 2013 [facility] [address] [id number] [address] [place] [address], [place] [address] Jun, [facility] [address] [id number] [address] [place] [address], [place] [address] Jun, [facility] [address] [id number] [address] [place] [address], [place] [address] Jun, [facility] [address] [id number] [address] [place] [address], [place] [address] Jun, [facility] [address] [id number] [address] [place] [address], [place] [address] Jun, [facility] [address] [id number] [address] [place] [address], [place] [address] Jun, [facility] [address] [id number] [address] [place] [address], [place] [address] May, [facility] [address] [id number] [address] [place] [address], [place] [address] May, [facility] [address] [id number] [address] [place] [address], [place] [address] May, [facility] [address] [id number] [address] [place] [address], [place] [address] May, [facility] [address] [id number] [address] [place] [address], [place] [address] May, [facility] [address] [id number] [address] [place] [address], [place] [address] 16 May, 2013 [facility] [address] [id number] [address] [place] [address], [place] [address] May, [facility] [address] [id number] [address] [place] [address], [place] [address] May, [facility] [address] [id number] [address] [place] [address], [place] [address] May, [facility] [address] [id number] [address] [place] [address], [place] [address] Apr, [facility] [address] [id number] [address] [place] [address], [place] [address] Apr, [facility] [address] [id number] [address] [place] [address], [place] [address] Apr, [facility] [address] [id number] [address] [place] [address], [place] [address] Apr, [facility] [address] [id number] [address] [place] [address], [place] [address] Apr, [facility] [address] [id number] [address] [place] [address], [place] [address] Apr, [facility] [address] [id number] [address] [place] [address], [place] [address] Apr, [facility] [address] [id number] [address] [place] [address], [place] [address] March, [facility] [address] [id number] [address] [place] [address], [place] [address] Feb, [facility] [address] [id number] [address] [place] [address], [place] [address] Feb, [facility] [address] [id number] [address] [place] [address], [place] [address] Feb, [facility] [address] [id number] [address] [place] [address], [place] [address] 28 Jan, 2013 [facility] [address] [id number] [address] [place] [address], [place] [address] Jan, [facility] [address] [id number] [address] [place] [address], [place] [address] 19 Jan, 2013 [facility] [address] [id number] [address] [place] [address], [place] [address] 14 Jan, 2013 [facility] [address] [id number] [address] [place] [address], [place] [address] 12 Jan, 2013 [facility] [address] [id number] [address] [place] [address], [place] [address] 08 Jan, 2013 [facility] [address] [id number] [address] [place] [address], [place] [address] 07 Jan, 2013 [facility] [address] [id number] [address] [place] [address], [place] [address] 04 Jan, 2013 [facility] [address] [id number] [address] [place] [address], [place] [address] 28 Dec, 2012 [facility] [address] [id number] [address] [place] [address], [place] [address] 25 Dec, 2012 [facility] [address] [id number] [address] [place] [address], [place] [address] 13 Dec, 2012 [facility] [address] [id number] [address] [place] [address], [place] [address] 11 Dec, 2012 [facility] [address] [id number] [address] [place] [address], [place] [address] 07 Dec, 2012 [facility] [address] [id number] [address] [place] [address], [place] [address] 06 Dec, 2012 [facility] [address] [id number] [address] [place] [address], [place] [address] 05 Dec, 2012 [facility] [address] [id number] [address] [place] [address], [place] [address] 31 Nov, 2012 [facility] [address] [id number] [address] [place] [address], [place] [address] 24 Nov, 2012 [facility] [address] [id number] [address] [place] [address], [place] [address] 18 Nov, 2012 [facility] [address] [id number] [address] [place] [address], [place] [address] 15 Nov, 2012 [facility] [address] [id number] [address] [place] [address], [place] [address] Nov, [facility] [address] [id number] [address] [place] [address], [place] [address] Nov, [facility] [address] [id number] [address] [place] [address], [place] [address] Nov, [facility] [address] [id number] [address] [place] [address], [place] [address] Oct, [facility] [address] [id number] [address] [place] [address], [place] [address] Oct, [facility] [address] [id number] [address] [place] [address], [place] [address] Oct, [facility] [address] [id number] [address] [place] [address], [place] [address] Oct, [facility] [address] [id number] [address] [place] [address], [place] [address] Oct, [facility] [address] [id number] [address] [place] [address], [place] [address] Oct, [facility] [address] [id number] [address] [place] [address], [place] [address] Oct, [facility] [address] [id number] [address] [place] [address], [place] [address] Oct, [facility] [address] [id number] [address] [place] [address], [place] [address] Oct, [facility] [address] [id number] [address] [place] [address], [place] [address] Oct, [facility] [address] [id number] [address] [place] [address], [place] [address] Oct, [facility] [address] [id number] [address] [place] [address], [place] [address] Oct, [facility] [address] [id number] [address] [place] [address], [place] [address] Sep, [facility] [address] [id number] [address] [place] [id number] Sep, [facility] [address] [id number] [address] [place] [address], [place] [address] Sep, [facility] [address] [id number] [address] [place] [address] Sep, [facility] [address] [id number] [address] [place] [address], [place] [address] Sep, [facility] [address] [id number] [address] [place] [address] Sep, [facility] [address] [id number] [address] [place] [address], [place] [address] Sep, [facility] [address] [id number] [address] [place] [address], [place] [address] Sep, [facility] [address] [id number] [address] [place] [address] Sep, [facility] [address] [id number] [address] [place] [id number] Sep, [facility] [address] [id number] [address] [place] [id number] Sep, [facility] [address] [id number] [address] [place] [address] Aug, [facility] [address] [id number] [address] [place] [address] Aug, [facility] [address] [id number] [address] [place] [id number] Aug, [facility] [address] [id number] [address] [place] [address] Aug, [facility] [address] [id number] [address] [place] [id number] Aug, [facility] [address] [id number] [address] [place] [address], [place] [address] Aug, [facility] [address] [id number] [address] [place] [address], [place] [address] Aug, [facility] [address] [id number] [address] [place] [address], [place] [address] Aug, [facility] [address] [id number] [address] [place] [address], [place] [address] Aug, [facility] [address] [id number] [address] [place] [address], [place] [address] Aug, [facility] [address] [id number] [address] [place] [address], [place] [address] 22 Jul, 2012 [facility] [address] [id number] [address] [place] [address], [place] [address] 20 Jul, 2012 [facility] [address] [id number] [address] [place] [address], [place] [address] 10 Jul, 2012 [facility] [address] [id number] [address] [place] [address], [place] [address] Jul, [facility] [address] [id number] [address] [place] [address], [place] [address] 30 Jun, 2012 [facility] [address] [id number] [address] [place] [address], [place] [address] Jun, [facility] [address] [id number] [address] [place] [address], [place] [address] 16 Jun, 2012 [facility] [address] [id number] [address] [place] [address], [place] [address] Jun, [facility] [address] [id number] [address] [place] [address], [place] [address] Jun, [facility] [address] [id number] [address] [place] [address], [place] [address] Jun, [facility] [address] [id number] [address] [place] [address], [place] [address] Jun, [facility] [address] [id number] [address] [place] [address], [place] [address] May, [facility] [address] [id number] [address] [place] [address], [place] [address] May, [facility] [address] [id number] [address] [place] [address], [place] [address] May, [facility] [address] [id number] [address] [place] [address], [place] [address] May, [facility] [address] [id number] [address] [place] [address], [place] [address] May, [facility] [address] [id number] [address] [place] [address], [place] [address] Apr, [facility] [address] [id number] [address] [place] [address], [place] [address] Apr, [facility] [address] [id number] [address] [place] [address], [place] [address] Apr, [facility] [address] [id number] [address] [place] [address], [place] [address] Apr, [facility] [address] [id number] [address] [place] [address], [place] [address] Apr, [facility] [address] [id number] [address] [place] [address], [place] [address] March, [facility] [address] [id number] [address] [place] [address], [place] [address] March, [facility] [address] [id number] [address] [place] [address], [place] [address] March, [facility] [address] [id number] [address] [place] [address], [place] [address] March, [facility] [address] [id number] [address] [place] [address], [place] [address] March, [facility] [address] [id number] [address] [place] [address], [place] [address] March, [facility] [address] [id number] [address] [place] [address], [place] [address] March, [facility] [address] [id number] [address] [place] [address], [place] [address] March, [facility] [address] [id number] [address] [place] [address], [place] [address] March, [facility] [address] [id number] [address] [place] [address], [place] [address] March, [facility] [address] [id number] [address] [place] [address], [place] [address] Feb, [facility] [address] [id number] [address] [place] [address], [place] [address] Feb, [facility] [address] [id number] [address] [place] [address], [place] [address] Feb, [facility] [address] [id number] [address] [place] [address], [place] [address] Feb, [facility] [address] [id number] [address] [place] [address], [place] [address] Feb, [facility] [address] [id number] [address] [place] [address], [place] [address] Feb, [facility] [address] [id number] [address] [place] [address], [place] [address] Feb, [facility] [address] [id number] [address] [place] [address], [place] [address] Feb, [facility] [address] [id number] [address] [place] [address], [place] [address] Feb, [facility] [address] [id number] [address] [place] [address], [place] [address] Jan, [facility] [address] [id number] [address] [place] [address], [place] [address] Jan, [facility] [address] [id number] [address] [place] [address], [place] [address] Jan, [facility] [address] [id number] [address] [place] [address], [place] [address] Jan, [facility] [address] [id number] [address] [place] [address], [place] [address] Dec, [facility] [address] [id number] [address] [place] [address], [place] [address] Dec, [facility] [address] [id number] [address] [place] [address], [place] [address] Nov, [facility] [address] [id number] [address] [place] [address], [place] [address] Nov, [facility] [address] [id number] [address] [place] [address], [place] [address] Nov, [facility] [address] [id number] [address] [place] [address], [place] [address] Nov, [facility] [address] [id number] [address] [place] [address], [place] [address] Nov, [facility] [address] [id number] [address] [place] [address], [place] [address] Oct, [facility] [address] [id number] [address] [place] [address], [place] [address] Oct, [facility] [address] [id number] [address] [place] [address], [place] [address] Oct, [facility] [address] [id number] [address] [place] [address], [place] [address] Oct, [facility] [address] [id number] [address] [place] [address], [place] [address] Oct, [facility] [address] [id number] [address] [place] [address], [place] [address] Oct, [facility] [address] [id number] [address] [place] [address], [place] [id number] Oct, [facility] [address] [id number] [address] [place] [address], [place] [id number] Oct, [facility] [address] [facility] [id number] [address] [place] [address] Sep, IMMUNIZATIONS No Known Immunizations SOCIAL HISTORY [...] fever, discharged 11/27/2017 11/26/2017 Hospitalization History [facility]- Went Unrepsonsive, Hit head 2017 Hospitalization History [facility]- Back Pain 05/05/ 8
--- OUTSIDE RECORDS SUMMARY | 2020-06-18 15:10 | XMS REPORT ---
Author Author Sanjuanita [facility] Address [address] [place] [address] Care Team Providers Care Benefit Director Name Role Phone ELIZABETHROYASHARIF Unavailable PROBLEMS Type Condition ICD9-CM Code CFB62-JO Code Onset Dates Condition S tatus SNOMED Code Problem Coronary artery disease I25.10 Active 08240022 Problem Hypertension I10 Active 0626259 3 Problem Other chronic pain G89.29 Active 8 0288393 Problem Hyperlipidemia E78.5 Active 49662 004 Problem Type 2 diabetes mellitus wit hout complication, without long-term current use of insulin E11.9 Active 916913993 Problem Low back pain M54.5 Active 844168 009 Problem Pharyngeal dysphagia R13.13 Active [id number] Problem Anxiety F41.9 Active 70600656 Problem Peripheral vascular disease I73.9 Ac tive 379194583 Problem Suprapubic catheter Z93.59 Active 916543149 Problem Reactive depression F32.9 Active 39226031 Problem Neurogenic bladder N31.9 Active 3 40316679 Problem Ventral hernia without obstruction or gangrene K43 .9 Active 807705310 Problem Insomnia G47.00 Active 598661895 Problem Paroxysmal atrial fibrillation I48.0 Active 119987914 Problem Postmenopausal atrophic vaginitis N95.2 Active 25387660 Problem Encounter for suprapubic catheter care Z43.5 Active 309924936 ALLERGIES No Information ENCOUNTERS Encounter Location Date Diagnosis Via [facility] [address] [place] [id number] Aug, Suprapubic catheter Z93.59 [facility] [address] [facility] [id number] [address] [place] [address] 10 Jul, 2019 Strain of right shoulder, scherer bsequent encounter S46.911D and Anxiety F41.9 [facility] [address] [facility] [id number] [address] [place] [address] Jul, Anxiety F41.9 [facility] [address] [id number] [address] [place] [address] Jun, [facility] [address] [id number] [address] [place] [address] Jun, [facility] [address] [id number] [address] [place] [address] Jun, [facility] [address] [id number] [address] [place] [address] Jun, Strain of right shoulder, scherer bsequent encounter S46.911D [facility] [facility] [address] [id number] [address] [place] [address] Jun, Strain of right shoulder, scherer bsequent encounter S46.911D [place] [facility] [address] [id number] [address] [place] [address] Jun, Anxiety F41.9 [facility] [address] [place] [id number] Jun, Neurogenic bladder N31.9 and Anxiety F41 .9 [facility] [address] [place] [id number] May, Anxiety F41.9 [place] [address] [id number] [address] [place] [address] May, Dysuria R30.0 [place] [address] [id number] [address] [place] [address] May, Strain of right shoulder, scherer bsequent encounter S46.911D and Anxiety F41.9 [place] [facility] [address] [id number] [address] [place] [address] Apr, Via [facility] [address] [place] [id number] Apr, Strain of right shoulder, subsequent enc ounter S46.911D [place] [facility] [address] [id number] [address] [place] [address] 14 Apr, 2019 Strain of right shoulder, scherer bsequent encounter S46.911D and Anxiety F41.9 [facility] [address] [place] [id number] 13 Apr, 2019 Type 2 diabetes mellitus without complic ation, without long-term current use of insulin E11.9 and Neurogenic bladder N31.9 [facility] [employer] [address] [place] [id number] 11 Apr, 2019 Strain of right shoulder, subsequent enc ounter S46.911D ; History of GI bleed Z87.19 ; Neurogenic bladder N31.9 and Reactive depression F32.9 [place] [address] [id number] [address] [place] [address] 10 Apr, 2019 Acute pain of left shoulder M25.512 [place] [address] [id number] [address] [place] [address] Apr, [place] [address] [id number] [address] [place] [address] Apr, Anxiety F41.9 and 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 [facility] [address] [place] [id number] March, Gastrointestinal hemorrhage associated w ith acute gastritis K29.01 [place] [address] [id number] [address] [place] [address] March, Via [facility] [address] [place] [id number] March, Bronchitis J40 [facility] [address] [id number] [address] [place] [address] March, Cough R05 [place] [address] [id number] [address] [place] [address] March, Other chronic pain G89.29 [facility] [address] [id number] [address] [place] [address] March, Anxiety F41.9 [place] [address] [id number] [address] [place] [address] March, [facility] [address] [id number] [address] [place] [address] Feb, Other chronic pain G89.29 [facility] [address] [id number] [address] [place] [address] Feb, Anxiety F41.9 [facility] [address] [id number] [address] [place] [address] Feb, Other chronic pain G89.29 [facility] [address] [place] [id number] Feb, Neurogenic bladder N31.9 and Suprapubic catheter Z93.59 [facility] [address] [id number] [address] [place] [address] Jan, Anxiety F41.9 [facility] [address] [id number] [address] [place] [address] Dec, Anxiety F41.9 [facility] [address] [id number] [address] [place] [address] Dec, Other chronic pain G89.29 an d Anxiety F41.9 [facility] [address] [id number] [address] [place] [address] Dec, Via [facility] [address] [place] [id number] Dec, Neurogenic bladder N31.9 and Suprapubic catheter Z93.59 [facility] [address] [id number] [address] [place] [address] Nov, Other chronic pain G89.29 an d Anxiety F41.9 [facility] [address] [id number] [address] [place] [address] Nov, Via [facility] [address] [place] [id number] Nov, Suprapubic catheter Z93.59 [facility] [address] [id number] [address] [place] [address] 31 Oct, 2018 Other chronic pain G89.29 an d Anxiety F41.9 [facility] [address] [id number] [address] [place] [address] Oct, [facility] [address] [id number] [address] [place] [address] Oct, Suprapubic catheter Z93.59 [facility] [address] [id number] [address] [place] [address] Oct, Via [email or web address] [address] [place] [id number] Oct, [facility] [address] [id number] [address] [place] [address] Oct, Anxiety F41.9 [place] [address] [id number] [address] [place] [address] Oct, Anxiety F41.9 Via [email or web address] [facility] [address] [place] [id number] Oct, Other chronic pain G89.29 [place] [address] [id number] [address] [place] [address] 14 Sep, 2018 Other chronic pain G89.29 Via [facility] [address] [place] [id number] Sep, Suprapubic catheter Z93.59 and Cervicalg ia M54.2 [facility] [address] [id number] [address] [place] [address] Sep, [facility] [address] [id number] [address] [place] [address] Sep, [facility] [address] [id number] [address] [place] [address] Sep, Via [facility] [address] [place] [id number] Aug, Cystitis N30.90 [facility] [address] [id number] [address] [place] [address] Aug, [facility] [address] [id number] [address] [place] [address] Aug, Other chronic pain G89.29 [facility] [address] [id number] [address] [place] [address] Aug, Via [facility] [address] [place] [id number] Aug, Encounter for suprapubic catheter care Z 43.5 [facility] [address] [id number] [address] [place] [address] 20 Jul, 2018 Via [facility] [address] [place] [id number] Jul, [facility] [address] [id number] [address] [place] [address] Jul, Other chronic pain G89.29 [facility] [address] [id number] [address] [place] [address] Jul, [facility] [address] [id number] [address] [place] [address] Jul, Via [facility] [address] [place] [id number] Jun, Postmenopausal atrophic vaginitis N95.2 [facility] [address] [id number] [address] [place] [address] Jun, Other chronic pain G89.29 [facility] [address] [id number] [address] [place] [address] Jun, Via [facility] [address] [place] [id number] May, Anxiety F41.9 ; Type 2 diabetes mellitus without complication, without long-term current use of insulin E11.9 ; Hypertension I10 ; Low back pain M54.5 ; Paroxysmal atrial fibrillation I48.0 and 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 [facility] [address] [id number] [address] [place] [address] May, Other chronic pain G89.29 Via [facility] [address] [place] [id number] May, Low back pain M54.5 [facility] [address] [id number] [address] [place] [address] May, [facility] [address] [id number] [address] [place] [address] Apr, Other chronic pain G89.29 [facility] [address] [id number] [address] [place] [address] Apr, [facility] [address] [id number] [address] [place] [address] Apr, Via [facility] [address] [place] [id number] Apr, Closed compression fracture of L3 lumbar vertebra with routine healing, subsequent encounter S32.030D [facility] [address] [place] [id number] Apr, Low back pain M54.5 Via [facility] [address] [place] [id number] Apr, Coccydynia M53.3 [facility] [address] [id number] [address] [place] [address] March, [facility] [address] [id number] [address] [place] [address] March, Other chronic pain G89.29 [facility] [address] [id number] [address] [place] [address] March, [facility] [address] [id number] [address] [place] [address] March, [facility] [address] [id number] [address] [place] [address] Feb, [facility] [address] [id number] [address] [place] [address] Feb, Other chronic pain G89.29 Via [facility] [address] [place] [id number] Feb, Other chronic pain G89.29 and Anxiety F4 1.9 [facility] [address] [facility] [id number] [address] [place] [address] Feb, [facility] [address] [facility] [id number] [address] [place] [address] Jan, [facility] [address] [facility] [id number] [address] [place] [address] Jan, [facility] [address] [facility] [id number] [address] [place] [address] Jan, [facility] [address] [facility] [id number] [address] [place] [address] Jan, [facility] [address] [facility] [id number] [address] [place] [address] Dec, Via [facility] [address] [place] [id number] Dec, Peripheral vascular disease I73.9 ; 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 ; Other chronic pain G89.29 ; Anxiety F41.9 ; Reactive depression F32.9 ; Insomnia G47.00 and Type 2 diabetes mellitus without complication, without long-term current use of insulin E11.9 [facility] [address] [id number] [address] Nov, [facility] [address] [id number] [place] [id number] Nov, Anxiety F41.9 [facility] [address] [facility] [id number] [address] [place] [address] Nov, [facility] [address] [id number] [place] [id number] Nov, Anxiety F41.9 [facility] [address] [place] [id number] Nov, Status post surgery Z98.890 ; Confused R 41.0 ; Anxiety F41.9 and Other chronic pain G89.29 [facility] [address] [id number] [place] [id number] Nov, Other chronic pain G89.29 [facility] [address] [id number] [address] [place] [address] Oct, [facility] [address] [id number] [place] [id number] Oct, Other chronic pain G89.29 [facility] [address] [id number] [address] [place] [address] Oct, Anxiety F41.9 [facility] [address] [id number] [place] [id number] Sep, Other chronic pain G89.29 [facility] [address] [id number] [place] [id number] Sep, Via [facility] [address] [place] [id number] Aug, Dysuria R30.0 and Anxiety F41.9 [facility] [address] [facility] [id number] [address] [place] [address] Aug, [facility] [address] [id number] [place] [id number] Aug, Other chronic pain G89.29 [facility] [address] [id number] [address] [place] [address] Jul, Other chronic pain G89.29 [facility] [address] [id number] [place] [id number] Jun, [facility] [address] [id number] [place] [id number] Jun, Other chronic pain G89.29 [facility] [address] [facility] [id number] [address] [place] [address] Jun, [facility] [address] [facility] [id number] [address] [place] [address] May, Other chronic pain G89.29 [facility] [address] [facility] [id number] [address] [place] [address] Apr, Other chronic pain G89.29 [facility] [address] [place] [id number] Apr, Reactive depression F32.9 and Pharyngeal dysphagia R13.13 [facility] [address] [facility] [id number] [address] [place] [address] Apr, Urinary tract infection with out hematuria, site unspecified N39.0 [place] [address] [facility] [id number] [address] [place] [address] March, Other chronic pain G89.29 [place] [address] [facility] [id number] [address] [place] [address] Feb, Other chronic pain G89.29 [facility] [address] [facility] [id number] [address] [place] [address] Feb, [facility] [id number] [place] [id number] Feb, Via [facility] [address] [place] [id number] Feb, Dysuria R30.0 and Ventral hernia without obstruction or gangrene K43.9 [facility] [address] [facility] [id number] [address] [place] [address] Jan, Other chronic pain G89.29 [facility] [address] [id number] [place] [id number] Dec, Other chronic pain G89.29 [facility] [address] [facility] [id number] [address] [place] [address] Nov, Other chronic pain G89.29 [facility] [employer] [address] [place] [id number] Nov, Lymphadenitis I88.9 [facility] [address] [id number] [address] [place] [address] Nov, Other chronic pain G89.29 [facility] [address] [id number] [address] [place] [address] Nov, [facility] [address] [id number] [place] [id number] Nov, Other chronic pain G89.29 [facility] [address] [place] [facility] [place] [id number] Oct, Low back pain M54.5 ; Hypertension I10 a nd Type 2 diabetes mellitus without complication, without long-term current use of insulin E11.9 [facility] [address] [id number] [address] [place] [address] Oct, [facility] [address] [id number] [address] [place] [address] Oct, [facility] [address] [id number] [address] [place] [address] Oct, [facility] [address] [id number] [address] [place] [address] Oct, [facility] [address] [id number] [address] [place] [address] Sep, [facility] [address] [id number] [address] [place] [address] Sep, [facility] [address] [id number] [address] [place] [address] Aug, Other chronic pain G89.29 [facility] [address] [id number] [address] [place] [address] Jul, [facility] [address] [id number] [address] [place] [address] Jul, [facility] [address] [id number] [address] [place] [address] Jul, [facility] [address] [id number] [address] [place] [address] 16 Jun, 2016 [facility] [address] [id number] [address] [place] [address] Jun, [facility] [address] [place] [id number] Jun, Low back pain M54.5 ; Other chronic pain G89.29 and Coronary artery disease I25.10 [facility] [address] [id number] [address] [place] [address] 08 Jun, 2016 [facility] [address] [id number] [address] [place] [address] May, [facility] [address] [id number] [address] [place] [address] May, [facility] [address] [id number] [address] [place] [address] May, Other chronic pain G89.29 [facility] [address] [id number] [address] [place] [address] May, [facility] [address] [id number] [address] [place] [address] Apr, [facility] [address] [id number] [address] [place] [address] Apr, Acute cystitis without hemat uria N30.00 [facility] [address] [id number] [address] [place] [address] Apr, Acute cystitis without hemat uria N30.00 ; Coronary artery disease I25.10 ; Low back pain M54.5 and Other chronic pain G89.29 [facility] [address] [id number] [address] [place] [address] Apr, Other chronic pain G89.29 [facility] [address] [id number] [address] [place] [address] March, Other chronic pain G89.29 [facility] [address] [id number] [address] [place] [address] 18 Feb, 2016 [facility] [address] [id number] [address] [place] [address] 15 Feb, 2016 Arthritis M19.90 [facility] [address] [id number] [address] [place] [address] 13 Feb, 2016 [facility] [address] [facility] [id number] [address] [place] [address] 30 Jan, 2016 [facility] [address] [id number] [address] [place] [address] Jan, [facility] [address] [facility] [id number] [address] [place] [address] Jan, Other chronic pain G89.29 [facility] [address] [facility] [id number] [address] [place] [address] Jan, Hypertension I10 ; Coronary artery disease I25.10 and Insomnia G47.00 [facility] [address] [facility] [id number] [address] [place] [address] Jan, [facility] [address] [facility] [id number] [address] [place] [address] Dec, Right hip pain M25.551 [facility] [address] [facility] [id number] [address] [place] [address] Dec, [facility] [address] [id number] [address] [place] [address] Dec, [facility] [address] [facility] [id number] [address] [place] [id number] Dec, [facility] [address] [facility] [id number] [address] [place] [id number] Dec, Other chronic pain G89.29 [facility] [address] [facility] [id number] [address] [place] [id number] Dec, [facility] [address] [id number] [address] [place] [id number] Nov, [facility] [address] [address] [id number] [address] [place] [id number] Nov, Other chronic pain G89.29 [facility] [address] [id number] [address] [place] [address] Nov, Right hip pain M25.551 and C oronary artery disease I25.10 [facility] [address] [id number] [address] [place] [address] Nov, Other chronic pain G89.29 [facility] [address] [id number] [address] [place] [address] Oct, [facility] [address] [id number] [address] [place] [address] Oct, [facility] [address] [id number] [address] [place] [address] Sep, [facility] [address] [id number] [address] [place] [address] Sep, [facility] [address] [id number] [address] [place] [id number] Aug, [facility] [address] [facility] [id number] [address] [place] [address] Aug, Hypertension I10 ; Coronary artery disease I25.10 and Arthritis M19.90 [facility] [address] [id number] [address] [place] [address] Jun, [facility] [address] [id number] [address] [place] [address] Jun, Essential hypertension, jayson gn 401.1 ; Other chronic pain 338.29 and Chronic airway obstruction, not elsewhere classified 496 [facility] [address] [id number] [address] [place] [address] Jun, [facility] [address] [id number] [address] [place] [phone] Jun, [facility] [address] [id number] [address] [place] [address], [place] [address] Jun, [facility] [address] [id number] [address] [place] [address], [place] [address] May, [facility] [address] [id number] [address] [place] [address], [place] [address] May, [facility] [address] [id number] [address] [place] [address], [place] [address] Apr, [facility] [address] [id number] [address] [place] [address], [place] [address] Apr, [facility] [address] [id number] [address] [place] [address], [place] [address] Apr, [facility] [address] [id number] [address] [place] [address] [place] [address] March, [facility] [address] [id number] [address] [place] [address] [place] [address] March, [facility] [address] [id number] [address] [place] [address] [place] [address] March, [facility] [address] [id number] [address] [place] [address], [place] [address] March, [facility] [address] [id number] [address] [place] [address], [place] [address] March, Sialadenitis 527.2 [facility] [address] [id number] [address] [place] [address], [place] [address] Feb, [facility] [address] [id number] [address] [place] [address] [place] [address] Feb, [facility] [address] [id number] [address] [place] [address], [place] [address] Feb, [facility] [address] [id number] [address] [place] [address], [place] [address] Feb, [facility] [address] [id number] [address] [place] [address], [place] [address] Feb, [facility] [address] [id number] [address] [place] [address], [place] [address] Jan, [facility] [address] [id number] [address] [place] [address], [place] [address] Jan, [facility] [address] [id number] [address] [place] [address], [place] [address] Jan, [facility] [address] [id number] [address] [place] [address], [place] [address] Jan, [facility] [address] [id number] [address] [place] [address], [place] [address] Jan, [facility] [address] [id number] [address] [place] [address], [place] [address] Jan, [facility] [address] [id number] [address] [place] [address], [place] [address] Dec, [facility] [address] [id number] [address] [place] [address], [place] [address] Dec, [facility] [address] [id number] [address] [place] [address], [place] [address] Dec, [facility] [address] [id number] [address] [place] [address], [place] [address] Dec, [facility] [address] [id number] [address] [place] [address], [place] [address] Dec, [facility] [address] [id number] [address] [place] [address], [place] [address] Dec, [facility] [address] [id number] [address] [place] [address], [place] [address] Nov, [facility] [address] [id number] [address] [place] [address], [place] [address] Nov, [facility] [address] [id number] [address] [place] [id number] Nov, [facility] [address] [id number] [address] [place] [address], [place] [address] Nov, [facility] [address] [id number] [address] [place] [address], [place] [address] Nov, [facility] [address] [id number] [address] [place] [address], [place] [address] Nov, [facility] [address] [id number] [address] [place] [address], [place] [address] Nov, [facility] [address] [id number] [address] [place] [address], [place] [address] Nov, [facility] [address] [id number] [address] [place] [address], [place] [address] Nov, [facility] [address] [id number] [address] [place] [address], [place] [address] Nov, [facility] [address] [id number] [address] [place] [address], [place] [address] Nov, [facility] [address] [id number] [address] [place] [address], [place] [address] Nov, [facility] [address] [id number] [address] [place] [address], [place] [address] Nov, [facility] [address] [id number] [address] [place] [address], [place] [address] Nov, [facility] [address] [id number] [address] [place] [address], [place] [address] Oct, [facility] [address] [id number] [address] [place] [address], [place] [address] Oct, [facility] [address] [id number] [address] [place] [address], [place] [address] Oct, [facility] [address] [id number] [address] [place] [address], [place] [address] Oct, [facility] [address] [id number] [address] [place] [address], [place] [address] 18 Oct, 2014 [facility] [address] [id number] [address] [place] [address], [place] [address] Oct, [facility] [address] [id number] [address] [place] [address], [place] [address] Oct, [facility] [address] [id number] [address] [place] [address], [place] [address] Oct, [facility] [address] [id number] [address] [place] [address], [place] [address] Oct, [facility] [address] [id number] [address] [place] [address], [place] [address] Sep, [facility] [address] [id number] [address] [place] [address], [place] [address] Sep, [facility] [address] [id number] [address] [place] [address], [place] [address] Sep, [facility] [address] [id number] [address] [place] [address], [place] [address] Sep, [facility] [address] [id number] [address] [place] [address], [place] [address] Sep, [facility] [address] [id number] [address] [place] [address], [place] [address] Sep, [facility] [address] [id number] [address] [place] [address], [place] [address] Sep, [facility] [address] [id number] [address] [place] [address], [place] [address] Sep, [facility] [address] [id number] [address] [place] [address], [place] [address] Sep, [facility] [address] [id number] [address] [place] [address], [place] [address] Sep, [facility] [address] [id number] [address] [place] [address], [place] [address] Sep, [facility] [address] [id number] [address] [place] [address], [place] [address] Sep, [facility] [address] [id number] [address] [place] [address], [place] [address] Aug, [facility] [address] [id number] [address] [place] [address], [place] [address] Aug, [facility] [address] [id number] [address] [place] [address], [place] [address] Aug, [facility] [address] [id number] [address] [place] [address], [place] [address] Aug, [facility] [address] [id number] [address] [place] [address], [place] [address] Aug, [facility] [address] [id number] [address] [place] [address], [place] [address] Aug, [facility] [address] [id number] [address] [place] [address], [place] [address] Aug, [facility] [address] [id number] [address] [place] [address], [place] [address] 17 Aug, 2014 [facility] [address] [id number] [address] [place] [address], [place] [address] 30 Jul, 2013 [facility] [address] [id number] [address] [place] [address], [place] [address] 30 Sep, 2013 [facility] [address] [id number] [address] [place] [address] 30 Sep, 2013 [facility] [address] [id number] [address] [place] [address], [place] [address] 30 Sep, 2013 [facility] [address] [id number] [address] [place] [address], [place] [address] 25 Sep, 2013 [facility] [address] [id number] [address] [place] [address], [place] [address] 25 Jul, 2013 [facility] [address] [id number] [address] [place] [address], [place] [address] 15 Jul, 2014 [facility] [address] [id number] [facility] [place] [address] 15 Jul, 2014 [facility] [address] [id number] [facility] [place] [place] [address] Jul, [facility] [address] [id number] [address] [place] [address], [place] [address] Jul, [facility] [address] [id number] [address] [place] [address], [place] [address] Jun, [facility] [address] [id number] [address] [place] [address], [place] [address] Jun, [facility] [address] [id number] [address] [place] [address], [place] [address] Jun, [facility] [address] [id number] [address] [place] [address], [place] [address] Jun, [facility] [address] [id number] [address] [place] [address], [place] [address] Jun, [facility] [address] [id number] [address] [place] [address], [place] [address] Jun, [facility] [address] [id number] [address] [place] [address], [place] [address] Jun, [facility] [address] [id number] [address] [place] [address], [place] [address] Jun, [facility] [address] [id number] [address] [place] [address], [place] [address] Jun, [facility] [address] [id number] [address] [place] [address], [place] [address] Jun, [facility] [address] [id number] [address] [place] [address], [place] [address] Jun, [facility] [address] [id number] [address] [place] [address], [place] [address] Jun, [facility] [address] [id number] [facility] [place] [address] Jun, [facility] [address] [id number] [facility] [place] [address] Jun, [facility] [address] [id number] [facility] [place] [address] Jun, [facility] [address] [id number] [facility] [place] [place] [address] Jun, [facility] [address] [id number] [address] [place] [address], [place] [address] Jun, [facility] [address] [id number] [address] [place] [address], [place] [address] Jun, [facility] [address] [id number] [address] [place] [address], [place] [address] Jun, [facility] [address] [id number] [address] [place] [address], [place] [address] Jun, [facility] [address] [id number] [address] [place] [address], [place] [address] Jun, [facility] [address] [id number] [address] [place] [address], [place] [address] Jun, [facility] [address] [id number] [address] [place] [address], [place] [address] May, [facility] [address] [id number] [address] [place] [address], [place] [address] May, [facility] [address] [id number] [address] [place] [address], [place] [address] May, [facility] [address] [id number] [address] [place] [address], [place] [address] May, [facility] [address] [id number] [address] [place] [address], [place] [address] May, [facility] [address] [id number] [address] [place] [address], [place] [address] May, 2013 [facility] [address] [id number] [facility] [place] [address] May, 2013 [facility] [address] [id number] [address] [place] [address], [place] [address] May, 2013 [facility] [address] [id number] [facility] [place] [place] [address] May, 2013 [facility] [address] [id number] [address] [place] [address], [place] [address] May, [facility] [address] [id number] [address] [place] [address], [place] [address] May, [facility] [address] [id number] [address] [place] [address], [place] [address] May, [facility] [address] [id number] [address] [place] [address], [place] [address] May, [facility] [address] [id number] [address] [place] [address], [place] [address] Apr, [facility] [address] [id number] [address] [place] [address], [place] [address] Apr, [facility] [address] [id number] [address] [place] [address], [place] [address] Apr, [facility] [address] [id number] [address] [place] [address], [place] [address] Apr, [facility] [address] [id number] [address] [place] [address], [place] [address] Apr, [facility] [address] [id number] [address] [place] [address], [place] [address] Apr, [facility] [address] [id number] [address] [place] [address], [place] [address] Apr, [facility] [address] [id number] [address] [place] [address], [place] [address] Apr, [facility] [address] [id number] [address] [place] [address], [place] [address] Apr, [facility] [address] [id number] [address] [place] [address], [place] [address] March, [facility] [address] [id number] [address] [place] [address], [place] [address] March, [facility] [address] [id number] [address] [place] [address], [place] [address] March, [facility] [address] [id number] [address] [place] [address], [place] [address] March, [facility] [address] [id number] [address] [place] [address], [place] [address] March, [facility] [address] [id number] [address] [place] [address], [place] [address] March, [facility] [address] [id number] [address] [place] [address], [place] [address] March, [facility] [address] [id number] [address] [place] [address], [place] [address] March, [facility] [address] [id number] [address] [place] [address] [address] March, [facility] [address] [id number] [address] [place] [address], [place] [address] March, [facility] [address] [id number] [address] [place] [address], [place] [address] March, [facility] [address] [id number] [address] [place] [address], [place] [address] March, [facility] [address] [id number] [address] [place] [address], [place] [address] March, [facility] [address] [id number] [address] [place] [address], [place] [address] March, [facility] [address] [id number] [address] [place] [address], [place] [address] March, [facility] [address] [id number] [address] [place] [address], [place] [address] March, [facility] [address] [id number] [address] [place] [address], [place] [address] March, [facility] [address] [id number] [address] [place] [address], [place] [address] March, [facility] [address] [id number] [address] [place] [address], [place] [address] March, [facility] [address] [id number] [address] [place] [address], [place] [address] March, [facility] [address] [id number] [address] [place] [address], [place] [address] Feb, [facility] [address] [id number] [address] [place] [address], [place] [id number] Feb, [facility] [address] [id number] [address] [place] [address], [place] [id number] Feb, [facility] [address] [id number] [address] [place] [address], [place] [address] Feb, [facility] [address] [id number] [address] [place] [address], [place] [address] Feb, [facility] [address] [id number] [address] [place] [address], [place] [address] Feb, [facility] [address] [id number] [address] [place] [address], [place] [address] Feb, [facility] [address] [id number] [address] [place] [address], [place] [address] Feb, [facility] [address] [id number] [address] [place] [address], [place] [address] Jan, [facility] [address] [id number] [address] [place] [address], [place] [address] Jan, [facility] [address] [id number] [address] [place] [address], [place] [id number] 24 Jan, 2014 [facility] [address] [id number] [address] [place] [address], [place] [address] Jan, [facility] [address] [id number] [address] [place] [address], [place] [address] Jan, [facility] [address] [id number] [address] [place] [address], [place] [address] Jan, [facility] [address] [id number] [address] [place] [address], [place] [address] Jan, [facility] [address] [id number] [address] [place] [address], [place] [address] Jan, [facility] [address] [id number] [address] [place] [address], [place] [address] Jan, [facility] [address] [id number] [address] [place] [address], [place] [address] Jan, [facility] [address] [id number] [address] [place] [address], [place] [id number] 27 Dec, 2013 [facility] [address] [id number] [address] [place] [address], [place] [address] Dec, [facility] [address] [id number] [address] [place] [address], [place] [address] Dec, [facility] [address] [id number] [address] [place] [address], [place] [address] 2013 [facility] [address] [id number] [address] [place] [address] [address] 2013 [facility] [address] [id number] [address] [place] [address], [place] [address] 13 Dec, 2013 [facility] [address] [id number] [address] [place] [address], [place] [address] Dec, [facility] [address] [id number] [address] [place] [address], [place] [address] Dec, [facility] [address] [id number] [address] [place] [address], [place] [address] Nov, [facility] [address] [id number] [address] [place] [address], [place] [id number] Nov, [facility] [address] [id number] [address] [place] [address], [place] [address] Nov, [facility] [address] [id number] [address] [place] [address], [place] [address] Nov, [facility] [address] [id number] [address] [place] [address], [place] [address] Nov, [facility] [address] [id number] [address] [place] [address], [place] [address] Nov, [facility] [address] [id number] [address] [place] [address], [place] [address] Nov, [facility] [address] [id number] [address] [place] [address], [place] [address] Nov, [facility] [address] [id number] [address] [place] [address], [place] [id number] Nov, [facility] [address] [id number] [address] [place] [address], [place] [address] Nov, [facility] [address] [id number] [address] [place] [address], [place] [address] Nov, [facility] [address] [id number] [place] [address], [place] [address] Nov, [facility] [address] [id number] [address] [place] [address], [place] [address] Nov, [facility] [address] [id number] [address] [place] [address], [place] [address] Oct, [facility] [address] [id number] [address] [place] [address], [place] [address] Oct, [facility] [address] [id number] [address] [place] [address], [place] [address] Oct, [facility] [address] [id number] [address] [place] [address], [place] [address] Oct, [facility] [address] [id number] [address] [place] [address], [place] [address] Oct, [facility] [address] [id number] [address] [place] [address], [place] [address] Oct, [facility] [address] [id number] [address] [place] [address], [place] [address] Oct, [facility] [address] [id number] [address] [place] [address], [place] [address] Oct, [facility] [address] [id number] [address] [place] [address], [place] [address] Oct, [facility] [address] [id number] [address] [place] [address], [place] [address] Oct, [facility] [address] [id number] [address] [place] [address], [place] [address] Oct, [facility] [address] [id number] [address] [place] [address], [place] [address] Oct, [facility] [address] [id number] [address] [place] [address], [place] [address] Oct, [facility] [address] [id number] [address] [place] [address], [place] [address] Oct, [facility] [address] [id number] [address] [place] [address], [place] [address] 14 Sep, 2013 [facility] [address] [id number] [address] [place] [address], [place] [address] Sep, [facility] [address] [id number] [address] [place] [address], [place] [address] 05 Sep, 2013 [facility] [address] [id number] [address] [place] [address], [place] [address] 05 Sep, 2013 [facility] [address] [id number] [address] [place] [address], [place] [address] Sep, [facility] [address] [id number] [address] [place] [address], [place] [address] Sep, [facility] [address] [id number] [address] [place] [address], [place] [address] Sep, [facility] [address] [id number] [address] [place] [address], [place] [address] Sep, [facility] [address] [id number] [address] [place] [address], [place] [address] Sep, [facility] [address] [id number] [address] [place] [address], [place] [address] Sep, [facility] [address] [id number] [address] [place] [address], [place] [address] Aug, [facility] [address] [id number] [address] [place] [address], [place] [address] Aug, [facility] [address] [id number] [address] [place] [address], [place] [address] Aug, [facility] [address] [id number] [address] [place] [address], [place] [address] Aug, [facility] [address] [id number] [address] [place] [address], [place] [address] Aug, [facility] [address] [id number] [address] [place] [address], [place] [address] Aug, [facility] [address] [id number] [address] [place] [address], [place] [address] Aug, [facility] [address] [id number] [address] [place] [address], [place] [address] Aug, [facility] [address] [id number] [address] [place] [address], [place] [address] Aug, [facility] [address] [id number] [address] [place] [address], [place] [address] Aug, [facility] [address] [id number] [address] [place] [address], [place] [address] 18 Aug, 2013 [facility] [address] [id number] [address] [place] [address], [place] [address] 18 Aug, 2013 [facility] [address] [id number] [address] [place] [address], [place] [address] 18 Aug, 2013 [facility] [address] [id number] [address] [place] [address], [place] [address] 18 Aug, 2013 [facility] [address] [id number] [address] [place] [address], [place] [address] 17 Aug, 2013 [facility] [address] [id number] [address] [place] [address], [place] [address] 14 Aug, 2013 [facility] [address] [id number] [address] [place] [address], [place] [address] 14 Aug, 2013 [facility] [address] [id number] [address] [place] [address], [place] [address] Aug, [facility] [address] [id number] [address] [place] [address], [place] [address] 20 Jul, 2013 [facility] [address] [id number] [address] [place] [address], [place] [address] 19 Jul, 2013 [facility] [address] [id number] [address] [place] [address], [place] [address] 18 Jul, 2013 [facility] [address] [id number] [address] [place] [id number] 11 Jul, 2013 [facility] [address] [id number] [address] [place] [address], [place] [address] 11 Jul, 2013 [facility] [address] [id number] [address] [place] [address], [place] [address] Jun, [facility] [address] [id number] [address] [place] [address], [place] [address] Jun, [facility] [address] [id number] [address] [place] [address], [place] [address] Jun, [facility] [address] [id number] [address] [place] [address], [place] [address] Jun, [facility] [address] [id number] [address] [place] [address], [place] [address] Jun, [facility] [address] [id number] [address] [place] [address], [place] [address] Jun, [facility] [address] [id number] [address] [place] [address], [place] [address] Jun, [facility] [address] [id number] [address] [place] [address], [place] [address] Jun, [facility] [address] [id number] [address] [place] [address], [place] [address] Jun, [facility] [address] [id number] [address] [place] [address], [place] [address] Jun, [facility] [address] [id number] [address] [place] [address], [place] [address] May, [facility] [address] [id number] [address] [place] [address], [place] [address] May, [facility] [address] [id number] [address] [place] [address], [place] [address] May, [facility] [address] [id number] [address] [place] [address], [place] [address] May, [facility] [address] [id number] [address] [place] [address], [place] [address] May, [facility] [address] [id number] [address] [place] [address], [place] [address] 16 May, 2013 [facility] [address] [id number] [address] [place] [address], [place] [address] May, [facility] [address] [id number] [address] [place] [address], [place] [address] May, [facility] [address] [id number] [address] [place] [address], [place] [address] May, [facility] [address] [id number] [address] [place] [address], [place] [address] Apr, [facility] [address] [id number] [address] [place] [address], [place] [address] Apr, [facility] [address] [id number] [address] [place] [address], [place] [address] Apr, [facility] [address] [id number] [address] [place] [address], [place] [address] Apr, [facility] [address] [id number] [address] [place] [address], [place] [address] Apr, [facility] [address] [id number] [address] [place] [address], [place] [address] Apr, [facility] [address] [id number] [address] [place] [address], [place] [address] Apr, [facility] [address] [id number] [address] [place] [address], [place] [address] March, [facility] [address] [id number] [address] [place] [address], [place] [address] Feb, [facility] [address] [id number] [address] [place] [address], [place] [address] Feb, [facility] [address] [id number] [address] [place] [address], [place] [address] Feb, [facility] [address] [id number] [address] [place] [address], [place] [address] Jan, [facility] [address] [id number] [address] [place] [address], [place] [address] Jan, [facility] [address] [id number] [address] [place] [address], [place] [address] Jan, [facility] [address] [id number] [address] [place] [address], [place] [address] 14 Jan, 2013 [facility] [address] [id number] [address] [place] [address], [place] [address] 12 Jan, 2013 [facility] [address] [id number] [address] [place] [address], [place] [address] 08 Jan, 2013 [facility] [address] [id number] [address] [place] [address], [place] [address] 07 Jan, 2013 [facility] [address] [id number] [address] [place] [address], [place] [address] 04 Jan, 2013 [facility] [address] [id number] [address] [place] [address], [place] [address] 28 Dec, 2012 [facility] [address] [id number] [address] [place] [address], [place] [address] 25 Dec, 2012 [facility] [address] [id number] [address] [place] [address], [place] [address] 13 Dec, 2012 [facility] [address] [id number] [address] [place] [address], [place] [address] 11 Dec, 2012 [facility] [address] [id number] [address] [place] [address], [place] [address] 07 Dec, 2012 [facility] [address] [id number] [address] [place] [address], [place] [address] 06 Dec, 2012 [facility] [address] [id number] [address] [place] [address], [place] [address] 05 Dec, 2012 [facility] [address] [id number] [address] [place] [address], [place] [address] 31 Nov, 2012 [facility] [address] [id number] [address] [place] [address], [place] [address] 24 Nov, 2012 [facility] [address] [id number] [address] [place] [address], [place] [address] 18 Nov, 2012 [facility] [address] [id number] [address] [place] [address], [place] [address] 15 Nov, 2012 [facility] [address] [id number] [address] [place] [address], [place] [address] 10 Nov, 2012 [facility] [address] [id number] [address] [place] [address], [place] [address] 10 Nov, 2012 [facility] [address] [id number] [address] [place] [address], [place] [address] 02 Nov, 2012 [facility] [address] [id number] [address] [place] [address], [place] [address] Oct, [facility] [address] [id number] [address] [place] [address], [place] [address] Oct, [facility] [address] [id number] [address] [place] [address], [place] [address] Oct, [facility] [address] [id number] [address] [place] [address], [place] [address] Oct, [facility] [address] [id number] [address] [place] [address], [place] [address] Oct, [facility] [address] [id number] [address] [place] [address], [place] [address] Oct, [facility] [address] [id number] [address] [place] [address], [place] [address] Oct, [facility] [address] [id number] [address] [place] [address], [place] [address] Oct, [facility] [address] [id number] [address] [place] [address], [place] [address] Oct, [facility] [address] [id number] [address] [place] [address], [place] [address] Oct, [facility] [address] [id number] [address] [place] [address], [place] [address] Oct, [facility] [address] [id number] [address] [place] [address], [place] [address] 04 Oct, 2012 [facility] [address] [id number] [address] [place] [address], [place] [address] Sep, [facility] [address] [id number] [address] [place] [address], [place] [address] Sep, [facility] [address] [id number] [address] [place] [address], [place] [address] Sep, [facility] [address] [id number] [address] [place] [address], [place] [address] Sep, [facility] [address] [id number] [address] [place] [address] Sep, [facility] [address] [id number] [address] [place] [address], [place] [address] Sep, [facility] [address] [id number] [address] [place] [address] Sep, [facility] [address] [id number] [address] [place] [address], [place] [address] Sep, [facility] [address] [id number] [address] [place] [address] Sep, [facility] [address] [id number] [address] [place] [address] Sep, [facility] [address] [id number] [address] [place] [address] Sep, [facility] [address] [id number] [address] [place] [address] Aug, [facility] [address] [id number] [address] [place] [address] Aug, [facility] [address] [id number] [address] [place] [address] Aug, [facility] [address] [id number] [address] [place] [address] Aug, [facility] [address] [id number] [address] [place] [address] Aug, [facility] [address] [id number] [address] [place] [address], [place] [address] Aug, [facility] [address] [id number] [address] [place] [address], [place] [address] Aug, [facility] [address] [id number] [address] [place] [address], [place] [address] Aug, [facility] [address] [id number] [address] [place] [address], [place] [address] Aug, [facility] [address] [id number] [address] [place] [address], [place] [address] Aug, [facility] [address] [id number] [address] [place] [address], [place] [address] Jul, [facility] [address] [id number] [address] [place] [address], [place] [address] Jul, [facility] [address] [id number] [address] [place] [address], [place] [address] Jul, [facility] [address] [id number] [address] [place] [address], [place] [address] Jul, [facility] [address] [id number] [address] [place] [address], [place] [address] Jun, [facility] [address] [id number] [address] [place] [address], [place] [address] Jun, [facility] [address] [id number] [address] [place] [address], [place] [address] Jun, [facility] [address] [id number] [address] [place] [address], [place] [address] Jun, [facility] [address] [id number] [address] [place] [address], [place] [address] Jun, [facility] [address] [id number] [address] [place] [address], [place] [address] Jun, [facility] [address] [id number] [address] [place] [address], [place] [address] Jun, [facility] [address] [id number] [address] [place] [address], [place] [address] May, [facility] [address] [id number] [address] [place] [address], [place] [address] May, [facility] [address] [id number] [address] [place] [address], [place] [address] May, [facility] [address] [id number] [address] [place] [address], [place] [address] May, [facility] [address] [id number] [address] [place] [address], [place] [address] May, [facility] [address] [id number] [address] [place] [address], [place] [address] Apr, [facility] [address] [id number] [address] [place] [address], [place] [address] Apr, [facility] [address] [id number] [address] [place] [address], [place] [address] Apr, [facility] [address] [id number] [address] [place] [address], [place] [address] Apr, [facility] [address] [id number] [address] [place] [address], [place] [address] Apr, [facility] [address] [id number] [address] [place] [address], [place] [address] March, [facility] [address] [id number] [address] [place] [address], [place] [address] March, [facility] [address] [id number] [address] [place] [address], [place] [address] March, [facility] [address] [id number] [address] [place] [address], [place] [address] March, [facility] [address] [id number] [address] [place] [address], [place] [address] March, [facility] [address] [id number] [address] [place] [address], [place] [address] March, [facility] [address] [id number] [address] [place] [address], [place] [address] March, [facility] [address] [id number] [address] [place] [address], [place] [address] March, [facility] [address] [id number] [address] [place] [address], [place] [address] March, [facility] [address] [id number] [address] [place] [address], [place] [address] March, [facility] [address] [id number] [address] [place] [address], [place] [address] Feb, [facility] [address] [id number] [address] [place] [address], [place] [address] Feb, [facility] [address] [id number] [address] [place] [address], [place] [address] Feb, [facility] [address] [id number] [address] [place] [address], [place] [address] Feb, [facility] [address] [id number] [address] [place] [address], [place] [address] Feb, [facility] [address] [id number] [address] [place] [address], [place] [address] Feb, [facility] [address] [id number] [address] [place] [address], [place] [address] Feb, [facility] [address] [id number] [address] [place] [address], [place] [address] Feb, [facility] [address] [id number] [address] [place] [address], [place] [address] Feb, [facility] [address] [id number] [address] [place] [address], [place] [address] Jan, [facility] [address] [id number] [address] [place] [address], [place] [address] Jan, [facility] [address] [id number] [address] [place] [address], [place] [id number] 05 Jan, 2012 [facility] [address] [id number] [address] [place] [address], [place] [address] Jan, [facility] [address] [id number] [address] [place] [address], [place] [id number] 29 Dec, 2011 [facility] [address] [id number] [address] [place] [address], [place] [address] Dec, [facility] [address] [id number] [address] [place] [address], [place] [address] Nov, [facility] [address] [id number] [address] [place] [address], [place] [address] Nov, [facility] [address] [id number] [address] [place] [address], [place] [address] Nov, [facility] [address] [id number] [address] [place] [address], [place] [address] Nov, [facility] [address] [id number] [address] [place] [address], [place] [address] Nov, [facility] [address] [id number] [address] [place] [address], [place] [address] Oct, [facility] [address] [id number] [address] [place] [address], [place] [address] Oct, [facility] [address] [id number] [address] [place] [address], [place] [address] Oct, [facility] [address] [id number] [address] [place] [address], [place] [address] Oct, [facility] [facility] [address] [id number] [address] [place] [address], [place] [id number] Oct, [facility] [address] [id number] [address] [place] [address], [place] [phone] Oct, [facility] [address] [id number] [address] [place] [address], [place] [phone] Oct, [facility] [address] [facility] [id number] [address] [address] Oct, [facility] [address] [facility] [id number] [address] [place] [id number] Sep, IMMUNIZATIONS No Known Immunizations SOCIAL HISTORY Never Assessed REASON FOR VISIT PLAN OF CARE VITAL SIGNS MEDICATIONS No Known Medications RESULTS No Results PROCEDURES No Known procedures INSTRUCTIONS MEDICATIONS ADMINISTERED No Known Medications MEDICAL (GENERAL) HISTORY Type Description Date Medical History aortic abdominal aneurysm moderate 04/06 18 Medical History illiac aneurysm 03/2018 Surgical History No Surgical history information Hospitalization History [facility]- Urosepsis, ab d pain and fever, discharged 11/27/2017 11/26/2017 Hospitalization History [facility]- Went Unrepsonsive, Hit head 2017 Hospitalization History [facility]- Back Pain 05/05/ 8
--- OUTSIDE RECORDS SUMMARY | 2020-06-18 15:11 | XMS REPORT ---
Author Author Sanjuanita JOHNSON [facility] Address [address] [place] [address] Care Team Providers Care Stippler Name Role Phone ELIZABETH SHARIF Unavailable PROBLEMS Type Condition ICD9-CM Code LSO87-CV Code Onset Dates Condition S tatus SNOMED Code Problem Coronary artery disease I25.10 Active 93791565 Problem Hypertension I10 Active 9628516 3 Problem Other chronic pain G89.29 Active 8 8394950 Problem Hyperlipidemia E78.5 Active 08711 004 Problem Type 2 diabetes mellitus wit hout complication, without long-term current use of insulin E11.9 Active 414905043 Problem Low back pain M54.5 Active 100659 009 Problem Pharyngeal dysphagia R13.13 Active 11963215567438 Problem Anxiety F41.9 Active 07346038 Problem Peripheral vascular disease I73.9 Ac tive 151397766 Problem Suprapubic catheter Z93.59 Active 814132352 Problem Reactive depression F32.9 Active 35968494 Problem Neurogenic bladder N31.9 Active 3 42488893 Problem Ventral hernia without obstruction or gangrene K43 .9 Active 994994613 Problem Insomnia G47.00 Active 671386606 Problem Paroxysmal atrial fibrillation I48.0 Active 902882278 Problem Postmenopausal atrophic vaginitis N95.2 Active 56710548 Problem Encounter for suprapubic catheter care Z43.5 Active 747794789 ALLERGIES No Information ENCOUNTERS Encounter Location Date Diagnosis [facility] [address] [facility] [id number] [address] [place] [address] Jul, Strain of right shoulder, scherer bsequent encounter S46.911D and Anxiety F41.9 [facility] [address] [id number] [address] [place] [id number] 03 Jul, 2019 Anxiety F41.9 [facility] [address] [facility] [id number] [address] [place] [id number] Jun, [facility] [address] [id number] [address] [place] [phone] Jun, [facility] [address] [id number] [address] [place] [address] Jun, [facility] [address] [id number] [address] [place] [address] Jun, Strain of right shoulder, scherer bsequent encounter S46.911D [facility] [address] [id number] [address] [place] [address] Jun, Strain of right shoulder, scherer bsequent encounter S46.911D [facility] [address] [id number] [address] [place] [address] Jun, Anxiety F41.9 [facility] [address] [place] [id number] Jun, Neurogenic bladder N31.9 and Anxiety F41 .9 [facility] [address] [place] [id number] May, Anxiety F41.9 [facility] [address] [id number] [address] [place] [phone] May, Dysuria R30.0 [facility] [address] [id number] [address] [place] [address] May, Strain of right shoulder, scherer bsequent encounter S46.911D and Anxiety F41.9 [facility] [address] [id number] [address] [place] [phone] Apr, [facility] [address] [place] [id number] Apr, Strain of right shoulder, subsequent enc ounter S46.911D [facility] [address] [id number] [address] [place] [address] Apr, Strain of right shoulder, scherer bsequent encounter S46.911D and Anxiety F41.9 [facility] [address] [place] [id number] 13 Apr, 2019 Type 2 diabetes mellitus without complic ation, without long-term current use of insulin E11.9 and Neurogenic bladder N31.9 [facility] [address] [place] [id number] Apr, Strain of right shoulder, subsequent enc ounter S46.911D ; History of GI bleed Z87.19 ; Neurogenic bladder N31.9 and Reactive depression F32.9 [facility] [address] [id number] [address] [place] [address] Apr, Acute pain of left shoulder M25.512 [facility] [address] [id number] [address] [place] [phone] Apr, [facility] [address] [id number] [address] [place] [address] Apr, Anxiety F41.9 and Other wound care rn 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 Via [facility] [address] [place] [id number] March, Gastrointestinal hemorrhage associated w ith acute gastritis K29.01 [place] [facility] [address] [id number] [address] [place] [address] March, Via [facility] [address] [place] [id number] March, Bronchitis J40 [facility] [address] [id number] [address] [place] [phone] March, Cough R05 [facility] [address] [id number] [address] [place] [address] March, Other chronic pain G89.29 [facility] [address] [id number] [address] [place] [id number] March, Anxiety F41.9 [facility] [address] [id number] [address] [place] [id number] March, [facility] [address] [id number] [address] [place] [address] Feb, Other chronic pain G89.29 [facility] [address] [id number] [address] [place] [address] Feb, Anxiety F41.9 [facility] [address] [id number] [address] [place] [address] Feb, Other chronic pain G89.29 [facility] [address] [place] [id number] Feb, Neurogenic bladder N31.9 and Suprapubic catheter Z93.59 [facility] [address] [id number] [address] [place] [address] Jan, Anxiety F41.9 [facility] [address] [id number] [address] [place] [address] Dec, Anxiety F41.9 [facility] [address] [id number] [address] [place] [address] Dec, Other chronic pain G89.29 an d Anxiety F41.9 [facility] [address] [id number] [address] [place] [address] Dec, [facility] [address] [place] [id number] Dec, Neurogenic bladder N31.9 and Suprapubic catheter Z93.59 [facility] [address] [id number] [address] [place] [address] Nov, Other chronic pain G89.29 an d Anxiety F41.9 [facility] [address] [id number] [address] [place] [phone] Nov, [facility] [address] [place] [id number] Nov, Suprapubic catheter Z93.59 [facility] [address] [id number] [address] [place] [address] Oct, Other chronic pain G89.29 an d Anxiety F41.9 [facility] [address] [id number] [address] [place] [phone] Oct, [facility] [address] [id number] [address] [place] [address] Oct, Suprapubic catheter Z93.59 [facility] [address] [id number] [address] [place] [address] Oct, [facility] [address] [place] [id number] Oct, [facility] [address] [id number] [address] [place] [address] Oct, Anxiety F41.9 [facility] [address] [id number] [address] [place] [phone] Oct, Anxiety F41.9 [facility] [address] [place] [id number] Oct, Other chronic pain G89.29 [facility] [address] [id number] [address] [place] [id number] 14 Sep, 2018 Other chronic pain G89.29 [facility] [address] [place] [id number] Sep, Suprapubic catheter Z93.59 and Cervicalg ia M54.2 [facility] [address] [id number] [address] [place] [phone] Sep, [facility] [address] [id number] [address] [place] [address] Sep, [facility] [address] [id number] [address] [place] [phone] Sep, Via [facility] [address] [place] [id number] Aug, Cystitis N30.90 [facility] [address] [id number] [address] [place] [address] Aug, [facility] [address] [id number] [address] [place] [address] Aug, Other chronic pain G89.29 [facility] [address] [id number] [address] [place] [address] Aug, Via [facility] [address] [place] [id number] Aug, Encounter for suprapubic catheter care Z 43.5 [facility] [address] [id number] [address] [place] [address] Jul, Via [facility] [address] [place] [id number] Jul, [facility] [address] [id number] [address] [place] [address] Jul, Other chronic pain G89.29 [facility] [address] [id number] [address] [place] [address] Jul, [facility] [address] [id number] [address] [place] [address] Jul, Via [facility] [address] [place] [id number] Jun, Postmenopausal atrophic vaginitis N95.2 [facility] [address] [id number] [address] [place] [address] Jun, Other chronic pain G89.29 [facility] [address] [id number] [address] [place] [address] Jun, Via [facility] [address] [place] [id number] May, Anxiety F41.9 ; Type 2 diabetes mellitus without complication, without long-term current use of insulin E11.9 ; Hypertension I10 ; Low back pain M54.5 ; Paroxysmal atrial fibrillation I48.0 and 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 [facility] [address] [id number] [address] [place] [address] May, Other chronic pain G89.29 [facility] [address] [place] [id number] May, Low back pain M54.5 [facility] [address] [id number] [address] [place] [phone] May, [facility] [address] [id number] [address] [place] [phone] Apr, Other chronic pain G89.29 [facility] [address] [id number] [address] [place] [phone] Apr, [facility] [address] [id number] [address] [place] [address] Apr, [facility] [address] [place] [id number] Apr, Closed compression fracture of L3 lumbar vertebra with routine healing, subsequent encounter S32.030D [facility] [address] [place] [id number] Apr, Low back pain M54.5 [facility] [address] [place] [id number] Apr, Coccydynia M53.3 [facility] [address] [id number] [address] [place] [address] March, [facility] [address] [id number] [address] [place] [address] March, Other chronic pain G89.29 [facility] [address] [id number] [address] [place] [id number] March, [facility] [address] [id number] [address] [place] [id number] March, [facility] [address] [id number] [address] [place] [phone] Feb, [facility] [address] [id number] [address] [place] [address] Feb, Other chronic pain G89.29 [facility] [address] [place] [id number] Feb, Other chronic pain G89.29 and Anxiety F4 1.9 [facility] [address] [facility] [id number] [address] [place] [phone] Feb, [facility] [address] [facility] [id number] [address] [place] [address] Jan, [facility] [address] [facility] [id number] [address] [place] [phone] Jan, [facility] [address] [facility] [id number] [address] [place] [address] Jan, [facility] [address] [facility] [id number] [address] [place] [address] Jan, [facility] [address] [facility] [id number] [address] [place] [address] Dec, Via [facility] [address] [place] [id number] Dec, Peripheral vascular disease I73.9 ; 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 ; Other chronic pain G89.29 ; Anxiety F41.9 ; Reactive depression F32.9 ; Insomnia G47.00 and Type 2 diabetes mellitus without complication, without long-term current use of insulin E11.9 [facility] ADRIENNE SANCHEZ [id number] [place] [address] Nov, [facility] [address] [id number] [id number] Nov, Anxiety F41.9 [facility] [address] [facility] [id number] [address] [place] [address] Nov, [facility] [address] [id number] [place] [id number] Nov, Anxiety F41.9 [facility] [address] [place] [id number] Nov, Status post surgery Z98.890 ; Confused R 41.0 ; Anxiety F41.9 and Other chronic pain G89.29 [facility] [address] [id number] [place] [id number] Nov, Other chronic pain G89.29 [facility] [address] [id number] [address] [place] [phone] Oct, [facility] [address] [id number] [place] [id number] Oct, Other chronic pain G89.29 [facility] [address] [id number] [address] [place] [phone] Oct, Anxiety F41.9 [facility] [address] [id number] [place] [id number] Sep, Other chronic pain G89.29 [facility] [address] [id number] [place] [id number] Sep, [facility] [address] [place] [id number] Aug, Dysuria R30.0 and Anxiety F41.9 [facility] [address] [id number] [address] [place] [id number] Aug, [facility] [address] [id number] [place] [id number] Aug, Other chronic pain G89.29 [facility] [address] [facility] [id number] [address] [place] [address] Jul, Other chronic pain G89.29 [facility] [address] [id number] [place] [id number] Jun, [facility] [address] [id number] [place] [id number] Jun, Other chronic pain G89.29 [facility] [address] [id number] [address] [place] [address] Jun, [facility] [address] [facility] [id number] [address] [place] [address] May, Other chronic pain G89.29 [facility] [address] [id number] [address] [place] [address] Apr, Other chronic pain G89.29 [facility] [address] [place] [id number] Apr, Reactive depression F32.9 and Pharyngeal dysphagia R13.13 [facility] [address] [id number] [address] [place] [address] Apr, Urinary tract infection with out hematuria, site unspecified N39.0 [facility] [address] [id number] [address] [place] [address] March, Other chronic pain G89.29 [facility] [address] [id number] [address] [place] [address] Feb, Other chronic pain G89.29 [facility] [address] [id number] [address] [place] [address] Feb, [facility] [address] [id number] [place] [id number] Feb, Via [facility] [address] [place] [id number] Feb, Dysuria R30.0 and Ventral hernia without obstruction or gangrene K43.9 [facility] [address] [id number] [address] [place] [address] Jan, Other chronic pain G89.29 [facility] [address] [id number] [place] [id number] Dec, Other chronic pain G89.29 [facility] [address] [id number] [address] [place] [address] Nov, Other chronic pain G89.29 [facility] [address] [place] [id number] Nov, Lymphadenitis I88.9 [facility] [address] [id number] [address] [place] [address] Nov, Other chronic pain G89.29 [facility] [address] [id number] [address] [place] [phone] Nov, [facility] [address] [id number] [place] [id number] Nov, Other chronic pain G89.29 [facility] [address] [place] [id number] Oct, Low back pain M54.5 ; Hypertension I10 a nd Type 2 diabetes mellitus without complication, without long-term current use of insulin E11.9 [facility] [address] [id number] [address] [place] [address] Oct, [facility] [address] [id number] [address] [place] [address] Oct, [facility] [address] [id number] [address] [place] [phone] Oct, [facility] [address] [id number] [address] [place] [address] Oct, [facility] [address] [id number] [address] [place] [address] Sep, [facility] [address] [id number] [address] [place] [address] Sep, [facility] [address] [id number] [address] [place] [address] Aug, Other chronic pain G89.29 [facility] [address] [id number] [address] [place] [address] Jul, [facility] [address] [id number] [address] [place] [address] Jul, [facility] [address] [id number] [address] [place] [id number] Jul, [facility] [address] [id number] [address] [place] [address] Jun, [facility] [address] [id number] [address] [place] [address] Jun, [facility] [address] [place] [id number] Jun, Low back pain M54.5 ; Other chronic pain G89.29 and Coronary artery disease I25.10 [facility] [address] [id number] [address] [place] [address] Jun, [facility] [address] [id number] [address] [place] [id number] May, [facility] [address] [id number] [address] [place] [address] May, [facility] [address] [id number] [address] [place] [address] May, Other chronic pain G89.29 [facility] [address] [id number] [address] [place] [address] May, [facility] [address] [id number] [address] [place] [address] Apr, [facility] [address] [id number] [address] [place] [address] Apr, Acute cystitis without hemat uria N30.00 [facility] [address] [id number] [address] [place] [id number] 16 Apr, 2016 Acute cystitis without hemat uria N30.00 ; Coronary artery disease I25.10 ; Low back pain M54.5 and Other chronic pain G89.29 [facility] [address] [id number] [address] [place] [address] Apr, Other chronic pain G89.29 [facility] [address] [id number] [address] [place] [address] March, Other chronic pain G89.29 [facility] [address] [id number] [address] [place] [id number] Feb, [facility] [address] [id number] [address] [place] [id number] 15 Feb, 2016 Arthritis M19.90 [facility] [address] [id number] [address] [place] [address] 13 Feb, 2016 [facility] [address] [id number] [address] [place] [id number] 30 Jan, 2016 [facility] [address] [id number] [address] [place] [phone] Jan, [facility] [address] [id number] [address] [place] [address] Jan, Other chronic pain G89.29 [facility] [address] [id number] [address] [place] [address] Jan, Hypertension I10 ; Coronary artery disease I25.10 and Insomnia G47.00 [facility] [address] [id number] [address] [place] [address] Jan, [facility] [address] [id number] [address] [place] [address] Dec, Right hip pain M25.551 [facility] [address] [id number] [address] [place] [address] Dec, [facility] [address] [id number] [address] [place] [id number] Dec, [facility] [address] [id number] [address] [place] [address] Dec, [facility] [address] [id number] [address] [place] [address] Dec, Other chronic pain G89.29 [facility] [address] [id number] [address] [place] [address] Dec, [facility] [address] [id number] [address] [place] [id number] Nov, [facility] [address] [id number] [address] [place] [address] Nov, Other chronic pain G89.29 [facility] [address] [id number] [address] [place] [address] Nov, Right hip pain M25.551 and C oronary artery disease I25.10 [facility] [address] [id number] [address] [place] [address] Nov, Other chronic pain G89.29 [facility] [address] [id number] [address] [place] [id number] Oct, [facility] [address] [id number] [address] [place] [id number] Oct, [facility] [address] [id number] [address] [place] [phone] Sep, [facility] [address] [id number] [address] [place] [phone] Sep, [facility] [address] [id number] [address] [place] [id number] Aug, [facility] [address] [id number] [address] [place] [phone] Aug, Hypertension I10 ; Coronary artery disease I25.10 and Arthritis M19.90 [facility] [address] [id number] [address] [place] [phone] Jun, [facility] [address] [id number] [address] [place] [phone] Jun, Essential hypertension, jayson gn 401.1 ; Other chronic pain 338.29 and Chronic airway obstruction, not elsewhere classified 496 [facility] [address] [id number] [address] [place] [phone] Jun, [facility] [address] [id number] [address] [place] [id number] Jun, [facility] [address] [facility] [id number] [address] [place] [phone] Jun, [facility] [address] [id number] [address] [place] [address], [place] [phone] May, [facility] [address] [id number] [address] [place] [address], [place] [id number] May, [facility] [address] [id number] [address] [place] [address], [place] [id number] Apr, [facility] [address] [id number] [address] [place] [address], [place] [id number] Apr, [facility] [address] [id number] [address] [place] [address], [place] [phone] Apr, [facility] [address] [id number] [address] [place] [address], [place] [phone] March, [facility] [address] [id number] [address] [place] [address], [place] [phone] March, [facility] [address] [id number] [address] [place] [address], [place] [id number] March, [facility] [address] [id number] [address] [place] [address], [place] [address] March, [facility] [address] [id number] [address] [place] [address], [place] [address] March, Sialadenitis 527.2 [facility] [address] [id number] [address] [place] [address], [place] [address] Feb, [facility] [address] [id number] [address] [place] [address], [place] [address] Feb, [facility] [address] [id number] [address] [place] [address], [place] [address] Feb, [facility] [address] [id number] [address] [place] [address], [place] [address] Feb, [facility] [address] [id number] [address] [place] [address], [place] [address] Feb, [facility] [address] [id number] [address] [place] [address], [place] [address] Jan, [facility] [address] [id number] [address] [place] [address], [place] [address] Jan, [facility] [address] [id number] [address] [place] [address], [place] [address] Jan, [facility] [address] [id number] [address] [place] [address], [place] [address] Jan, [facility] [address] [id number] [address] [place] [address], [place] [address] Jan, [facility] [address] [id number] [address] [place] [address], [place] [address] Jan, [facility] [address] [id number] [address] [place] [address], [place] [address] Dec, [facility] [address] [id number] [address] [place] [address], [place] [address] Dec, 2014 [facility] [address] [id number] [address] [place] [address], [place] [address] Dec, [facility] [address] [id number] [address] [place] [address], [place] [address] Dec, [facility] [address] [id number] [address] [place] [address], [place] [address] Dec, [facility] [address] [id number] [address] [place] [address], [place] [address] Dec, [facility] [address] [id number] [address] [place] [address], [place] [address] Nov, [facility] [address] [id number] [address] [place] [address], [place] [address] Nov, [facility] [address] [id number] [address] [place] [address], [place] [address] Nov, [facility] [address] [id number] [address] [place] [address], [place] [address] Nov, [facility] [address] [id number] [address] [place] [address], [place] [address] Nov, [facility] [address] [id number] [address] [place] [address], [place] [address] Nov, [facility] [address] [id number] [address] [place] [address], [place] [address] Nov, [facility] [address] [id number] [address] [place] [address], [place] [address] Nov, [facility] [address] [id number] [address] [place] [address], [place] [address] Nov, [facility] [address] [id number] [address] [place] [address], [place] [address] Nov, [facility] [address] [id number] [address] [place] [address], [place] [address] Nov, [facility] [address] [id number] [address] [place] [address], [place] [address] Nov, [facility] [address] [id number] [address] [place] [address], [place] [address] Nov, [facility] [address] [id number] [address] [place] [address], [place] [address] Nov, [facility] [address] [id number] [address] [place] [address], [place] [address] Oct, [facility] [address] [id number] [address] [place] [address], [place] [address] Oct, [facility] [address] [id number] [address] [place] [address], [place] [address] Oct, [facility] [address] [id number] [address] [place] [address], [place] [address] Oct, [facility] [address] [id number] [address] [place] [address], [place] [address] Oct, [facility] [address] [id number] [address] [place] [address], [place] [address] Oct, [facility] [address] [id number] [address] [place] [address], [place] [address] Oct, [facility] [address] [id number] [address] [place] [address], [place] [address] Oct, [facility] [address] [id number] [address] [place] [address], [place] [address] Oct, [facility] [address] [id number] [address] [place] [address], [place] [address] Sep, [facility] [address] [id number] [address] [place] [address], [place] [address] Sep, [facility] [address] [id number] [address] [place] [address], [place] [address] Sep, [facility] [address] [id number] [address] [place] [address], [place] [address] Sep, [facility] [address] [id number] [address] [place] [address], [place] [address] Sep, [facility] [address] [id number] [address] [place] [address], [place] [address] Sep, [facility] [address] [id number] [address] [place] [address], [place] [address] Sep, [facility] [address] [id number] [address] [place] [address], [place] [address] Sep, [facility] [address] [id number] [address] [place] [address], [place] [address] Sep, [facility] [address] [id number] [address] [place] [address], [place] [address] Sep, [facility] [address] [id number] [address] [place] [address], [place] [address] Sep, [facility] [address] [id number] [address] [place] [address], [place] [address] Sep, [facility] [address] [id number] [address] [place] [address], [place] [address] 30 Aug, 2014 [facility] [address] [id number] [address] [place] [address], [place] [address] 30 Aug, 2014 [facility] [address] [id number] [address] [place] [address], [place] [address] 29 Aug, 2014 [facility] [address] [id number] [address] [place] [address], [place] [address] Aug, [facility] [address] [id number] [address] [place] [address], [place] [address] Aug, [facility] [address] [id number] [address] [place] [address], [place] [address] Aug, [facility] [address] [id number] [address] [place] [address], [place] [address] Aug, [facility] [address] [id number] [address] [place] [address], [place] [address] 17 Aug, 2014 [facility] [address] [id number] [address] [place] [address], [place] [address] 30 Jul, 2013 [facility] [address] [id number] [address] [place] [address] 30 Jul, 2013 [facility] [address] [id number] [address] [place] [address] 30 Sep, 2013 [facility] [address] [id number] [address] [place] [address] 30 Sep, 2013 [facility] [address] [id number] [address] [place] [address], [place] [address] 25 Sep, 2013 [facility] [address] [id number] [address] [place] [address], [place] [address] 25 Sep, 2013 [facility] [address] [id number] [address] [place] [address] 15 Sep, 2013 [facility] [address] [id number] [address] [place] [address] Jul, [facility] [address] [id number] [address] [place] [address], [place] [address] Jul, [facility] [address] [id number] [address] [place] [address], [place] [address] Jul, [facility] [address] [id number] [address] [place] [address], [place] [address] Jun, [facility] [address] [id number] [address] [place] [address], [place] [address] Jun, [facility] [address] [id number] [address] [place] [address], [place] [address] Jun, [facility] [address] [id number] [address] [place] [address], [place] [address] Jun, [facility] [address] [id number] [address] [place] [address], [place] [address] Jun, [facility] [address] [id number] [address] [place] [address], [place] [address] Jun, [facility] [address] [id number] [address] [place] [address], [place] [address] Jun, [facility] [address] [id number] [address] [place] [address], [place] [address] Jun, [facility] [address] [id number] [address] [place] [address], [place] [address] Jun, [facility] [address] [id number] [address] [place] [address], [place] [address] Jun, [facility] [address] [id number] [address] [place] [address], [place] [address] Jun, [facility] [address] [id number] [address] [place] [address], [place] [address] Jun, [facility] [address] [id number] [address] [place] [address], [place] [address] Jun, [facility] [address] [id number] [facility] [address] Jun, [facility] [address] [id number] [facility] [address] Jun, [facility] [address] [id number] [facility] [address] Jun, [facility] [address] [id number] [address] [place] [address], [place] [address] Jun, [facility] [address] [id number] [facility] [address] Jun, [facility] [address] [id number] [address] [place] [address], [place] [address] Jun, [facility] [address] [id number] [address] [place] [address], [place] [address] Jun, [facility] [address] [id number] [address] [place] [address], [place] [address] Jun, [facility] [address] [id number] [address] [place] [address], [place] [address] Jun, [facility] [address] [id number] [address] [place] [address], [place] [address] May, [facility] [address] [id number] [address] [place] [address], [place] [address] May, [facility] [address] [id number] [address] [place] [address], [place] [address] May, [facility] [address] [id number] [address] [place] [address], [place] [address] May, [facility] [address] [id number] [address] [place] [address], [place] [address] May, [facility] [address] [id number] [address] [place] [address], [place] [address] May, [facility] [address] [id number] [address] [place] [address], [place] [address] May, [facility] [address] [id number] [facility] [address] May, 2013 [facility] [address] [id number] [facility] [address] May, [facility] [address] [id number] [facility] [address] May, [facility] [address] [id number] [address] [place] [address], [place] [address] May, [facility] [address] [id number] [address] [place] [address], [place] [address] May, [facility] [address] [id number] [address] [place] [address], [place] [address] May, [facility] [address] [id number] [address] [place] [address], [place] [address] Apr, [facility] [address] [id number] [address] [place] [address], [place] [address] Apr, [facility] [address] [id number] [address] [place] [address], [place] [address] Apr, [facility] [address] [id number] [address] [place] [address], [place] [address] Apr, [facility] [address] [id number] [address] [place] [address], [place] [address] Apr, [facility] [address] [id number] [address] [place] [address], [place] [address] Apr, [facility] [address] [id number] [address] [place] [address], [place] [address] Apr, [facility] [address] [id number] [address] [place] [address], [place] [address] Apr, [facility] [address] [id number] [address] [place] [address], [place] [address] Apr, [facility] [address] [id number] [address] [place] [address], [place] [address] March, [facility] [address] [id number] [address] [place] [address], [place] [address] March, [facility] [address] [id number] [address] [place] [address], [place] [address] March, [facility] [address] [id number] [address] [place] [address], [place] [address] March, [facility] [address] [id number] [address] [place] [address], [place] [address] March, [facility] [address] [id number] [address] [place] [address], [place] [address] March, [facility] [address] [id number] [address] [place] [address], [place] [address] March, [facility] [address] [id number] [address] [place] [address], [place] [address] March, [facility] [address] [id number] [address] [place] [address], [place] [address] March, [facility] [address] [id number] [address] [place] [address], [place] [address] March, [facility] [address] [id number] [address] [place] [address], [place] [address] March, [facility] [address] [id number] [address] [place] [address], [place] [address] March, [facility] [address] [id number] [address] [place] [address], [place] [address] March, [facility] [address] [id number] [address] [place] [address], [place] [address] March, [facility] [address] [id number] [address] [place] [address], [place] [address] March, [facility] [address] [id number] [address] [place] [address], [place] [address] March, [facility] [address] [id number] [address] [place] [address], [place] [address] March, [facility] [address] [id number] [address] [place] [address], [place] [address] March, [facility] [address] [id number] [address] [place] [address], [place] [address] March, [facility] [address] [id number] [address] [place] [address], [place] [address] March, [facility] [address] [id number] [address] [place] [address], [place] [address] Feb, [facility] [address] [id number] [address] [place] [address], [place] [address] Feb, [facility] [address] [id number] [address] [place] [address], [place] [address] Feb, [facility] [address] [id number] [address] [place] [address], [place] [address] Feb, [facility] [address] [id number] [address] [place] [address], [place] [address] Feb, [facility] [address] [id number] [address] [place] [address], [place] [address] Feb, [facility] [address] [id number] [address] [place] [address], [place] [address] Feb, [facility] [address] [id number] [address] [place] [address], [place] [address] Feb, [facility] [address] [id number] [address] [place] [address], [place] [address] Jan, [facility] [address] [id number] [address] [place] [address], [place] [address] Jan, [facility] [address] [id number] [address] [place] [address], [place] [address] Jan, [facility] [address] [id number] [address] [place] [address], [place] [address] 24 Jan, 2014 [facility] [address] [id number] [address] [place] [address], [place] [address] 13 Jan, 2014 [facility] [address] [id number] [address] [place] [address], [place] [address] 13 Jan, 2014 [facility] [address] [id number] [address] [place] [address], [place] [address] Jan, [facility] [address] [id number] [address] [place] [address], [place] [address] Jan, [facility] [address] [id number] [address] [place] [address], [place] [address] Jan, [facility] [address] [id number] [address] [place] [address], [place] [address] Jan, [facility] [address] [id number] [address] [place] [address], [place] [address] 27 Dec, 2013 [facility] [address] [id number] [address] [place] [address], [place] [address] 26 Dec, 2013 [facility] [address] [id number] [address] [place] [address], [place] [address] 26 Dec, 2013 [facility] [address] [id number] [address] [place] [address], [place] [address] 2013 [facility] [address] [id number] [address] [place] [address], [place] [address] 2013 [facility] [address] [id number] [address] [place] [address], [place] [address] 13 Dec, 2013 [facility] [address] [id number] [address] [place] [address], [place] [address] Dec, [facility] [address] [id number] [address] [place] [address], [place] [address] Dec, [facility] [address] [id number] [address] [place] [address], [place] [address] Nov, [facility] [address] [id number] [address] [place] [address], [place] [address] Nov, [facility] [address] [id number] [address] [place] [address], [place] [address] Nov, [facility] [address] [id number] [address] [place] [address], [place] [address] Nov, [facility] [address] [id number] [address] [place] [address], [place] [address] Nov, [facility] [address] [id number] [address] [place] [address], [place] [address] Nov, [facility] [address] [id number] [address] [place] [address], [place] [address] Nov, [facility] [address] [id number] [address] [place] [address], [place] [address] Nov, [facility] [address] [id number] [address] [place] [address], [place] [address] Nov, [facility] [address] [id number] [address] [place] [address], [place] [address] Nov, [facility] [address] [id number] [address] [place] [address], [place] [address] Nov, [facility] [address] [id number] [address] [place] [address], [place] [address] Nov, [facility] [address] [id number] [address] [place] [address], [place] [address] Nov, [facility] [address] [id number] [address] [place] [address], [place] [address] Oct, [facility] [address] [id number] [address] [place] [address], [place] [address] Oct, [facility] [address] [id number] [address] [place] [address], [place] [address] Oct, [facility] [address] [id number] [address] [place] [address], [place] [address] Oct, [facility] [address] [id number] [address] [place] [address], [place] [address] Oct, [facility] [address] [id number] [address] [place] [address], [place] [address] Oct, [facility] [address] [id number] [address] [place] [address], [place] [address] Oct, [facility] [address] [id number] [address] [place] [address], [place] [address] Oct, [facility] [address] [id number] [address] [place] [address], [place] [address] Oct, [facility] [address] [id number] [address] [place] [address], [place] [address] Oct, [facility] [address] [id number] [address] [place] [address], [place] [address] Oct, [facility] [address] [id number] [address] [place] [address], [place] [address] Oct, [facility] [address] [id number] [address] [place] [address], [place] [address] Oct, [facility] [address] [id number] [address] [place] [address], [place] [address] Oct, [facility] [address] [id number] [address] [place] [address], [place] [address] 14 Sep, 2013 [facility] [address] [id number] [address] [place] [address] 14 Sep, 2013 [facility] [address] [id number] [address] [place] [address], [place] [address] 05 Sep, 2013 [facility] [address] [id number] [address] [place] [address], [place] [address] 05 Sep, 2013 [facility] [address] [id number] [address] [place] [address], [place] [address] Sep, [facility] [address] [id number] [address] [place] [address], [place] [address] Sep, [facility] [address] [id number] [address] [place] [address], [place] [address] Sep, [facility] [address] [id number] [address] [place] [address], [place] [address] Sep, [facility] [address] [id number] [address] [place] [address], [place] [address] Sep, [facility] [address] [id number] [address] [place] [address], [place] [address] Sep, [facility] [address] [id number] [address] [place] [address], [place] [address] Aug, [facility] [address] [id number] [address] [place] [address], [place] [address] Aug, [facility] [address] [id number] [address] [place] [address], [place] [address] Aug, [facility] [address] [id number] [address] [place] [address], [place] [address] Aug, [facility] [address] [id number] [address] [place] [address], [place] [address] Aug, [facility] [address] [id number] [address] [place] [address], [place] [address] Aug, [facility] [address] [id number] [address] [place] [address], [place] [address] Aug, [facility] [address] [id number] [address] [place] [address], [place] [address] Aug, [facility] [address] [id number] [address] [place] [address], [place] [address] Aug, [facility] [address] [id number] [address] [place] [address], [place] [address] Aug, [facility] [address] [id number] [address] [place] [address], [place] [address] 18 Aug, 2013 [facility] [address] [id number] [address] [place] [address], [place] [address] 18 Aug, 2013 [facility] [address] [id number] [address] [place] [address], [place] [address] 18 Aug, 2013 [facility] [address] [id number] [address] [place] [address], [place] [address] 18 Aug, 2013 [facility] [address] [id number] [address] [place] [address], [place] [address] 17 Aug, 2013 [facility] [address] [id number] [address] [place] [address], [place] [address] 14 Aug, 2013 [facility] [address] [id number] [address] [place] [address], [place] [address] 14 Aug, 2013 [facility] [address] [id number] [address] [place] [address], [place] [address] Aug, [facility] [address] [id number] [address] [place] [address], [place] [address] 20 Jul, 2013 [facility] [address] [id number] [address] [place] [address], [place] [address] 19 Jul, 2013 [facility] [address] [id number] [address] [place] [address], [place] [address] 18 Jul, 2013 [facility] [address] [id number] [address] [place] [address], [place] [address] 11 Jul, 2013 [facility] [address] [id number] [address] [place] [address] 11 Jul, 2013 [facility] [address] [id number] [address] [place] [address], [place] [address] Jun, [facility] [address] [id number] [address] [place] [address], [place] [address] Jun, [facility] [address] [id number] [address] [place] [address], [place] [address] Jun, [facility] [address] [id number] [address] [place] [address] Jun, [facility] [address] [id number] [address] [place] [address], [place] [address] Jun, [facility] [address] [id number] [address] [place] [address], [place] [address] Jun, [facility] [address] [id number] [address] [place] [address], [place] [address] Jun, [facility] [address] [id number] [address] [place] [address], [place] [address] Jun, [facility] [address] [id number] [address] [place] [address], [place] [address] Jun, [facility] [address] [id number] [address] [place] [address], [place] [address] Jun, [facility] [address] [id number] [address] [place] [address], [place] [address] May, [facility] [address] [id number] [address] [place] [address], [place] [address] May, [facility] [address] [id number] [address] [place] [address], [place] [address] May, [facility] [address] [id number] [address] [place] [address], [place] [address] May, [facility] [address] [id number] [address] [place] [address], [place] [address] May, [facility] [address] [id number] [address] [place] [address], [place] [address] May, [facility] [address] [id number] [address] [place] [address], [place] [address] May, [facility] [address] [id number] [address] [place] [address], [place] [address] May, [facility] [address] [id number] [address] [place] [address], [place] [address] May, [facility] [address] [id number] [address] [address] Apr, [facility] [address] [id number] [address] [place] [address], [place] [address] Apr, [facility] [address] [id number] [address] [place] [address], [place] [address] Apr, [facility] [address] [id number] [address] [place] [address], [place] [address] Apr, [facility] [address] [id number] [address] [place] [address], [place] [address] Apr, [facility] [address] [id number] [address] [place] [address], [place] [address] Apr, [facility] [address] [id number] [address] [place] [address], [place] [address] Apr, [facility] [address] [id number] [address] [place] [address], [place] [address] March, [facility] [address] [id number] [address] [place] [address], [place] [address] Feb, [facility] [address] [id number] [address] [place] [address], [place] [address] Feb, [facility] [address] [id number] [address] [place] [address], [place] [address] Feb, [facility] [address] [id number] [address] [place] [address], [place] [address] 28 Jan, 2013 [facility] [address] [id number] [address] [place] [address], [place] [address] Jan, [facility] [address] [id number] [address] [place] [address], [place] [address] 19 Jan, 2013 [facility] [address] [id number] [address] [place] [address], [place] [address] 14 Jan, 2013 [facility] [address] [id number] [address] [place] [address], [place] [address] Jan, [facility] [address] [id number] [address] [address] 08 Jan, 2013 [facility] [address] [id number] [address] [place] [address], [place] [address] 07 Jan, 2013 [facility] [address] [id number] [address] [place] [address], [place] [address] 04 Jan, 2013 [facility] [address] [id number] [address] [place] [address], [place] [address] 28 Dec, 2012 [facility] [address] [id number] [address] [place] [address], [place] [address] 25 Dec, 2012 [facility] [address] [id number] [address] [place] [address], [place] [address] 13 Dec, 2012 [facility] [address] [id number] [address] [place] [address], [place] [address] Dec, [facility] [address] [id number] [address] [place] [address], [place] [address] 07 Dec, 2012 [facility] [address] [id number] [address] [place] [address], [place] [address] 06 Dec, 2012 [facility] [address] [id number] [address] [place] [address], [place] [address] 05 Dec, 2012 [facility] [address] [id number] [address] [place] [address], [place] [address] Nov, [facility] [address] [id number] [address] [place] [address], [place] [address] 24 Nov, 2012 [facility] [address] [id number] [address] [place] [address], [place] [address] 18 Nov, 2012 [facility] [address] [id number] [address] [place] [address], [place] [address] 15 Nov, 2012 [facility] [address] [id number] [address] [place] [address], [place] [address] 10 Nov, 2012 [facility] [address] [id number] [address] [place] [address], [place] [address] Nov, [facility] [address] [id number] [address] [place] [address], [place] [address] Nov, [facility] [address] [id number] [address] [place] [address], [place] [address] Oct, [facility] [address] [id number] [address] [place] [address], [place] [address] Oct, [facility] [address] [id number] [address] [place] [address], [place] [address] Oct, [facility] [address] [id number] [address] [place] [address], [place] [address] Oct, [facility] [address] [id number] [address] [place] [address], [place] [address] Oct, [facility] [address] [id number] [address] [place] [address], [place] [address] Oct, [facility] [address] [id number] [address] [place] [address], [place] [address] Oct, [facility] [address] [id number] [address] [place] [address], [place] [address] Oct, [facility] [address] [id number] [address] [place] [address], [place] [address] Oct, [facility] [address] [id number] [address] [place] [address], [place] [address] Oct, [facility] [address] [id number] [address] [place] [address], [place] [address] Oct, [facility] [address] [id number] [address] [place] [address], [place] [address] Oct, [facility] [address] [id number] [address] [place] [address], [place] [address] Sep, [facility] [address] [id number] [address] [place] [address], [place] [address] Sep, [facility] [address] [id number] [address] [place] [address], [place] [address] Sep, [facility] [address] [id number] [address] [place] [address], [place] [address] Sep, [facility] [address] [id number] [address] [place] [address], [place] [address] Sep, [facility] [address] [id number] [address] [place] [address], [place] [address] Sep, [facility] [address] [id number] [address] [place] [address], [place] [address] Sep, [facility] [address] [id number] [address] [place] [address], [place] [address] Sep, [facility] [address] [id number] [address] [place] [address], [place] [address] Sep, [facility] [address] [id number] [address] [place] [address], [place] [address] Sep, [facility] [address] [id number] [address] [place] [address], [place] [address] Sep, [facility] [address] [id number] [address] [place] [address], [place] [address] Aug, [facility] [address] [id number] [address] [place] [address], [place] [address] Aug, [facility] [address] [id number] [address] [place] [address] Aug, [facility] [address] [id number] [address] [place] [address], [place] [address] Aug, [facility] [address] [id number] [address] [place] [address], [place] [address] Aug, [facility] [address] [id number] [address] [place] [address], [place] [address] Aug, [facility] [address] [id number] [address] [place] [address] [place] [address] Aug, [facility] [address] [id number] [address] [place] [address], [place] [address] Aug, [facility] [address] [id number] [address] [place] [address], [place] [address] Aug, [facility] [address] [id number] [address] [place] [address], [place] [address] Aug, [facility] [address] [id number] [address] [place] [address], [place] [address] 22 Jul, 2012 [facility] [address] [id number] [address] [place] [address], [place] [address] 20 Jul, 2012 [facility] [address] [id number] [address] [place] [address], [place] [address] Jul, [facility] [address] [id number] [address] [place] [address], [place] [address] Jul, [facility] [address] [id number] [address] [place] [address], [place] [address] Jun, [facility] [address] [id number] [address] [place] [address], [place] [address] Jun, [facility] [address] [id number] [address] [place] [address], [place] [address] Jun, [facility] [address] [id number] [address] [place] [address], [place] [address] Jun, [facility] [address] [id number] [address] [place] [address], [place] [address] Jun, [facility] [address] [id number] [address] [place] [address], [place] [address] Jun, [facility] [address] [id number] [address] [place] [address], [place] [address] Jun, [facility] [address] [id number] [address] [place] [address], [place] [address] May, [facility] [address] [id number] [address] [place] [address], [place] [address] May, [facility] [address] [id number] [address] [place] [address], [place] [address] May, [facility] [address] [id number] [address] [place] [address], [place] [address] May, [facility] [address] [id number] [address] [place] [address], [place] [address] May, [facility] [address] [id number] [address] [place] [address], [place] [address] Apr, [facility] [address] [id number] [address] [place] [address], [place] [address] Apr, [facility] [address] [id number] [address] [place] [address], [place] [address] Apr, [facility] [address] [id number] [address] [place] [address], [place] [address] Apr, [facility] [address] [id number] [address] [place] [address], [place] [address] Apr, [facility] [address] [id number] [address] [place] [address], [place] [address] March, [facility] [address] [id number] [address] [place] [address], [place] [address] March, [facility] [address] [id number] [address] [place] [address], [place] [address] March, [facility] [address] [id number] [address] [place] [address], [place] [address] March, [facility] [address] [id number] [address] [place] [address], [place] [address] March, [facility] [address] [id number] [address] [place] [address], [place] [address] March, [facility] [address] [id number] [address] [place] [address], [place] [address] March, [facility] [address] [id number] [address] [place] [address], [place] [address] March, [facility] [address] [id number] [address] [place] [address], [place] [address] March, [facility] [address] [id number] [address] [place] [address], [place] [address] March, [facility] [address] [id number] [address] [place] [address], [place] [address] Feb, [facility] [address] [id number] [address] [place] [address], [place] [address] Feb, [facility] [address] [id number] [address] [place] [address], [place] [address] Feb, [facility] [address] [id number] [address] [place] [address], [place] [address] Feb, [facility] [address] [id number] [address] [place] [address], [place] [address] Feb, [facility] [address] [id number] [address] [place] [address], [place] [address] Feb, [facility] [address] [id number] [address] [place] [address], [place] [address] Feb, [facility] [address] [id number] [address] [place] [address], [place] [address] Feb, [facility] [address] [id number] [address] [place] [address], [place] [address] Feb, [facility] [address] [id number] [address] [place] [address], [place] [address] Jan, [facility] [address] [id number] [address] [place] [address], [place] [address] Jan, [facility] [address] [id number] [address] [place] [address], [place] [address] Jan, [facility] [address] [id number] [address] [place] [address], [place] [address] Jan, [facility] [address] [id number] [address] [place] [address], [place] [address] Dec, [facility] [address] [id number] [address] [place] [address], [place] [address] Dec, [facility] [address] [id number] [address] [place] [address], [place] [address] Nov, [facility] [address] [id number] [address] [place] [address], [place] [address] Nov, [facility] [address] [id number] [address] [place] [address], [place] [address] Nov, [facility] [address] [id number] [address] [place] [address], [place] [address] Nov, [facility] [address] [id number] [address] [place] [address], [place] [address] Nov, [facility] [address] [id number] [address] [place] [address], [place] [address] Oct, [facility] [address] [id number] [address] [place] [address], [place] [address] Oct, [facility] [address] [id number] [address] [place] [address], [place] [address] Oct, [facility] [address] [id number] [address] [place] [address], [place] [address] Oct, [facility] [address] [id number] [address] [place] [address], [place] [address] Oct, [facility] [address] [id number] [address] [place] [address], [place] [address] Oct, [facility] [address] [id number] [address] [place] [address], [place] [address] Oct, [facility] [address] [id number] [address] [place] [address], [place] [address] Oct, [facility] [address] [facility] [id number] [address] [place] [address] Sep, IMMUNIZATIONS No Known Immunizations SOCIAL HISTORY Never Assessed REASON FOR VISIT PLAN OF CARE VITAL SIGNS MEDICATIONS Unknown Medications RESULTS No Results PROCEDURES No Known procedures INSTRUCTIONS MEDICATIONS ADMINISTERED No Known Medications MEDICAL (GENERAL) HISTORY Type Description Date Medical History aortic abdominal aneurysm moderate 04/06 18 Medical History 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
--- OUTSIDE RECORDS SUMMARY | 2020-06-18 15:11 | XMS REPORT ---
Author Author Sanjuanita [facility] Address [address] [place] [address] Care Team Providers Care Supervisor Tan Room Name Role Phone ELIZABETH SHARIF Unavailable PROBLEMS Type Condition ICD9-CM Code LIM97-WC Code Onset Dates Condition S tatus SNOMED Code Problem Coronary artery disease I25.10 Active 74291647 Problem Hypertension I10 Active 8025143 3 Problem Other chronic pain G89.29 Active 8 6595750 Problem Hyperlipidemia E78.5 Active 42993 004 Problem Type 2 diabetes mellitus wit hout complication, without long-term current use of insulin E11.9 Active 984556311 Problem Low back pain M54.5 Active 355349 009 Problem Pharyngeal dysphagia R13.13 Active 00145402371074 Problem Anxiety F41.9 Active 67841064 Problem Peripheral vascular disease I73.9 Ac tive 651955834 Problem Suprapubic catheter Z93.59 Active 916147863 Problem Reactive depression F32.9 Active 57286550 Problem Neurogenic bladder N31.9 Active 3 33395407 Problem Ventral hernia without obstruction or gangrene K43 .9 Active 276469507 Problem Insomnia G47.00 Active 938982535 Problem Paroxysmal atrial fibrillation I48.0 Active 876522835 Problem Postmenopausal atrophic vaginitis N95.2 Active 60333119 Problem Encounter for suprapubic catheter care Z43.5 Active 177787512 ALLERGIES No Information ENCOUNTERS Encounter Location Date Diagnosis [facility] [address] [facility] [id number] [address] [place] [id number] Jul, Strain of right shoulder, scherer bsequent encounter S46.911D and Anxiety F41.9 [facility] [address] [id number] [address] [place] [id number] 03 Jul, 2019 Anxiety F41.9 [facility] [address] [facility] [id number] [address] [place] [id number] Jun, [facility] [address] [id number] [address] [place] [id number] Jun, [facility] [address] [id number] [address] [place] [id number] Jun, [facility] [facility] [address] [id number] [address] [place] [id number] Jun, Strain of right shoulder, scherer bsequent encounter S46.911D [facility] [facility] [address] [id number] [address] [place] [id number] Jun, Strain of right shoulder, scherer bsequent encounter S46.911D [facility] [facility] [address] [id number] [address] [place] [id number] Jun, Anxiety F41.9 [facility] [address] [place] [id number] Jun, Neurogenic bladder N31.9 and Anxiety F41 .9 [facility] [address] [place] [id number] May, Anxiety F41.9 [facility] [facility] [address] [id number] [address] [place] [id number] May, Dysuria R30.0 [facility] [facility] [address] [id number] [address] [place] [id number] May, Strain of right shoulder, scherer bsequent encounter S46.911D and Anxiety F41.9 [place] [address] [id number] [address] [place] [id number] Apr, [facility] [address] [place] [id number] Apr, Strain of right shoulder, subsequent enc ounter S46.911D [facility] [address] [id number] [address] [place] [id number] Apr, Strain of right shoulder, scherer bsequent encounter S46.911D and Anxiety F41.9 [facility] [address] [place] [id number] 13 Apr, 2019 Type 2 diabetes mellitus without complic ation, without long-term current use of insulin E11.9 and Neurogenic bladder N31.9 [facility] [address] [place] [id number] Apr, Strain of right shoulder, subsequent enc ounter S46.911D ; History of GI bleed Z87.19 ; Neurogenic bladder N31.9 and Reactive depression F32.9 [facility] [address] [id number] [address] [place] [id number] Apr, Acute pain of left shoulder M25.512 [facility] [address] [id number] [address] [place] [id number] Apr, [facility] [address] [id number] [address] [place] [id number] Apr, Anxiety F41.9 and 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 [facility] [address] [place] [id number] March, Gastrointestinal hemorrhage associated w ith acute gastritis K29.01 [place] [address] [id number] [address] [place] [id number] March, [facility] [address] [place] [id number] March, Bronchitis J40 [facility] [address] [id number] [address] [place] [id number] March, Cough R05 [facility] [address] [id number] [address] [place] [id number] March, Other chronic pain G89.29 [facility] [address] [id number] [address] [place] [id number] March, Anxiety F41.9 [facility] [address] [id number] [address] [place] [id number] March, [facility] [address] [id number] [address] [place] [id number] Feb, Other chronic pain G89.29 [facility] [address] [id number] [address] [place] [id number] Feb, Anxiety F41.9 [facility] [address] [id number] [address] [place] [id number] Feb, Other chronic pain G89.29 [facility] [address] [place] [id number] Feb, Neurogenic bladder N31.9 and Suprapubic catheter Z93.59 [facility] [address] [id number] [address] [place] [id number] Jan, Anxiety F41.9 [facility] [address] [id number] [address] [place] [id number] Dec, Anxiety F41.9 [facility] [address] [id number] [address] [place] [id number] Dec, Other chronic pain G89.29 an d Anxiety F41.9 [facility] [address] [id number] [address] [place] [id number] Dec, [facility] [address] [place] [id number] Dec, Neurogenic bladder N31.9 and Suprapubic catheter Z93.59 [facility] [address] [id number] [address] [place] [id number] Nov, Other chronic pain G89.29 an d Anxiety F41.9 [facility] [address] [id number] [address] [place] [id number] Nov, [facility] [address] [place] [id number] Nov, Suprapubic catheter Z93.59 [facility] [address] [id number] [address] [place] [id number] Oct, Other chronic pain G89.29 an d Anxiety F41.9 [facility] [address] [id number] [address] [place] [id number] Oct, [facility] [address] [id number] [address] [place] [id number] Oct, Suprapubic catheter Z93.59 [facility] [address] [id number] [address] [place] [phone] Oct, [facility] [address] [place] [id number] Oct, [facility] [address] [id number] [address] [place] [phone] Oct, Anxiety F41.9 [facility] [address] [id number] [address] [place] [phone] Oct, Anxiety F41.9 [facility] [address] [place] [id number] Oct, Other chronic pain G89.29 [facility] [address] [id number] [address] [place] [id number] 14 Sep, 2018 Other chronic pain G89.29 Via [facility] [address] [place] [id number] Sep, Suprapubic catheter Z93.59 and Cervicalg ia M54.2 [facility] [address] [id number] [address] [place] [phone] Sep, [facility] [address] [id number] [address] [place] [id number] Sep, [facility] [address] [id number] [address] [place] [id number] Sep, Via [facility] [address] [place] [id number] Aug, Cystitis N30.90 [facility] [address] [id number] [address] [place] [phone] Aug, [facility] [address] [id number] [address] [place] [id number] Aug, Other chronic pain G89.29 [facility] [address] [id number] [address] [place] [phone] Aug, Via [facility] [address] [place] [id number] Aug, Encounter for suprapubic catheter care Z 43.5 [facility] [address] [id number] [address] [place] [phone] Jul, Via [facility] [address] [place] [id number] Jul, [facility] [address] [id number] [address] [place] [id number] Jul, Other chronic pain G89.29 [facility] [address] [id number] [address] [place] [id number] Jul, [facility] [address] [id number] [address] [place] [phone] Jul, Via [facility] [address] [place] [id number] Jun, Postmenopausal atrophic vaginitis N95.2 [facility] [address] [id number] [address] [place] [id number] Jun, Other chronic pain G89.29 [facility] [address] [id number] [address] [place] [id number] Jun, Via [facility] [address] [place] [id number] May, Anxiety F41.9 ; Type 2 diabetes mellitus without complication, without long-term current use of insulin E11.9 ; Hypertension I10 ; Low back pain M54.5 ; Paroxysmal atrial fibrillation I48.0 and 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 [facility] [address] [id number] [address] [place] [id number] May, Other chronic pain G89.29 [facility] [address] [place] [id number] May, Low back pain M54.5 [facility] [address] [id number] [address] [place] [id number] May, [facility] [address] [id number] [address] [place] [id number] Apr, Other chronic pain G89.29 [facility] [address] [id number] [address] [place] [phone] Apr, [facility] [address] [id number] [address] [place] [id number] Apr, Via [facility] [address] [place] [id number] Apr, Closed compression fracture of L3 lumbar vertebra with routine healing, subsequent encounter S32.030D [facility] [address] [place] [id number] Apr, Low back pain M54.5 [facility] [address] [place] [id number] Apr, Coccydynia M53.3 [facility] [address] [id number] [address] [place] [phone] March, [facility] [address] [id number] [address] [place] [id number] March, Other chronic pain G89.29 [facility] [address] [id number] [address] [place] [id number] March, [facility] [address] [id number] [address] [place] [phone] March, [facility] [address] [id number] [address] [place] [id number] Feb, [facility] [address] [id number] [address] [place] [id number] Feb, Other chronic pain G89.29 [facility] [address] [place] [id number] Feb, Other chronic pain G89.29 and Anxiety F4 1.9 [facility] [address] [facility] [id number] [address] [place] [id number] Feb, [facility] [address] [facility] [id number] [address] [place] [phone] Jan, [facility] [address] [facility] [id number] [address] [place] [phone] Jan, [facility] [address] [facility] [id number] [address] [place] [phone] Jan, [facility] [address] [facility] [id number] [address] [place] [phone] Jan, [facility] [address] [facility] [id number] [address] [place] [id number] Dec, [facility] [employer] [facility] [address] [place] [id number] Dec, Peripheral vascular disease I73.9 ; 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 ; Other chronic pain G89.29 ; Anxiety F41.9 ; Reactive depression F32.9 ; Insomnia G47.00 and Type 2 diabetes mellitus without complication, without long-term current use of insulin E11.9 [facility] ADRIENNE SANCHEZ [id number] [place] [address] Nov, [facility] [address] [id number] [id number] Nov, Anxiety F41.9 [facility] [address] [facility] [id number] [address] [place] [id number] Nov, [facility] [address] [id number] [id number] Nov, Anxiety F41.9 [facility] [address] [place] [id number] Nov, Status post surgery Z98.890 ; Confused R 41.0 ; Anxiety F41.9 and Other chronic pain G89.29 [facility] [address] [id number] [place] [id number] Nov, Other chronic pain G89.29 [facility] [address] [id number] [address] [place] [phone] Oct, [facility] [address] [id number] [place] [id number] Oct, Other chronic pain G89.29 [facility] [address] [id number] [address] [place] [id number] Oct, Anxiety F41.9 [facility] [address] [id number] [place] [id number] Sep, Other chronic pain G89.29 [facility] [address] [id number] [place] [id number] Sep, [facility] [address] [place] [id number] Aug, Dysuria R30.0 and Anxiety F41.9 [facility] [address] [id number] [address] [place] [id number] Aug, [facility] [address] [id number] [place] [id number] Aug, Other chronic pain G89.29 [facility] [address] [facility] [id number] [address] [place] [id number] Jul, Other chronic pain G89.29 [facility] [address] [id number] [place] [id number] Jun, [facility] [address] [id number] [place] [id number] Jun, Other chronic pain G89.29 [facility] [address] [id number] [address] [place] [id number] Jun, [facility] [address] [facility] [id number] [address] [place] [id number] May, Other chronic pain G89.29 [facility] [address] [id number] [address] [place] [id number] Apr, Other chronic pain G89.29 [facility] [employer] [address] [place] [id number] Apr, Reactive depression F32.9 and Pharyngeal dysphagia R13.13 [facility] [address] [id number] [address] [place] [id number] Apr, Urinary tract infection with out hematuria, site unspecified N39.0 [facility] [address] [id number] [address] [place] [phone] March, Other chronic pain G89.29 [facility] [address] [id number] [address] [place] [id number] Feb, Other chronic pain G89.29 [facility] [address] [id number] [address] [place] [phone] Feb, [facility] [address] [id number] [place] [id number] Feb, [facility] [address] [place] [id number] Feb, Dysuria R30.0 and Ventral hernia without obstruction or gangrene K43.9 [facility] [address] [id number] [address] [place] [id number] Jan, Other chronic pain G89.29 [facility] [address] [id number] [place] [id number] Dec, Other chronic pain G89.29 [facility] [address] [id number] [address] [place] [id number] Nov, Other chronic pain G89.29 [facility] [address] [place] [id number] Nov, Lymphadenitis I88.9 [facility] [address] [id number] [address] [place] [id number] Nov, Other chronic pain G89.29 [facility] [address] [id number] [address] [place] [phone] Nov, [facility] [address] [id number] [place] [id number] Nov, Other chronic pain G89.29 [facility] [address] [place] [id number] Oct, Low back pain M54.5 ; Hypertension I10 a nd Type 2 diabetes mellitus without complication, without long-term current use of insulin E11.9 [facility] [address] [id number] [address] [place] [id number] Oct, [facility] [address] [id number] [address] [place] [phone] Oct, [facility] [address] [id number] [address] [place] [id number] Oct, [facility] [address] [id number] [address] [place] [phone] Oct, [facility] [address] [id number] [address] [place] [id number] Sep, [facility] [address] [id number] [address] [place] [phone] Sep, [facility] [address] [id number] [address] [place] [id number] Aug, Other chronic pain G89.29 [facility] [address] [id number] [address] [place] [id number] Jul, [facility] [address] [id number] [address] [place] [id number] Jul, [facility] [address] [id number] [address] [place] [id number] Jul, [facility] [address] [id number] [address] [place] [phone] Jun, [facility] [address] [id number] [address] [place] [phone] Jun, [facility] [address] [place] [id number] Jun, Low back pain M54.5 ; Other chronic pain G89.29 and Coronary artery disease I25.10 [facility] [address] [id number] [address] [place] [phone] Jun, [facility] [address] [id number] [address] [place] [id number] May, [facility] [address] [id number] [address] [place] [id number] May, [facility] [address] [id number] [address] [place] [id number] May, Other chronic pain G89.29 [facility] [address] [id number] [address] [place] [phone] May, [facility] [address] [id number] [address] [place] [id number] Apr, [facility] [address] [id number] [address] [place] [id number] Apr, Acute cystitis without hemat uria N30.00 [facility] [address] [id number] [address] [place] [id number] 16 Apr, 2016 Acute cystitis without hemat uria N30.00 ; Coronary artery disease I25.10 ; Low back pain M54.5 and Other chronic pain G89.29 [facility] [address] [id number] [address] [place] [id number] Apr, Other chronic pain G89.29 [facility] [address] [id number] [address] [place] [id number] March, Other chronic pain G89.29 [facility] [address] [id number] [address] [place] [id number] Feb, [facility] [address] [id number] [address] [place] [id number] 15 Feb, 2016 Arthritis M19.90 [facility] [address] [id number] [address] [place] [id number] 13 Feb, 2016 [facility] [address] [id number] [address] [place] [id number] 30 Jan, 2016 [facility] [address] [id number] [address] [place] [phone] Jan, [facility] [address] [id number] [address] [place] [id number] Jan, Other chronic pain G89.29 [facility] [address] [id number] [address] [place] [id number] Jan, Hypertension I10 ; Coronary artery disease I25.10 and Insomnia G47.00 [facility] [address] [id number] [address] [place] [id number] Jan, [facility] [address] [id number] [address] [place] [id number] Dec, Right hip pain M25.551 [facility] [address] [id number] [address] [place] [id number] Dec, [facility] [address] [id number] [address] [place] [phone] Dec, [facility] [address] [id number] [address] [place] [id number] Dec, [facility] [address] [id number] [address] [place] [id number] Dec, Other chronic pain G89.29 [facility] [address] [id number] [address] [place] [id number] Dec, [facility] [address] [id number] [address] [place] [id number] Nov, [facility] [address] [id number] [address] [place] [id number] Nov, Other chronic pain G89.29 [facility] [address] [id number] [address] [place] [id number] Nov, Right hip pain M25.551 and C oronary artery disease I25.10 [facility] [address] [id number] [address] [place] [id number] Nov, Other chronic pain G89.29 [facility] [address] [id number] [address] [place] [id number] Oct, [facility] [address] [id number] [address] [place] [id number] Oct, [facility] [address] [id number] [address] [place] [id number] Sep, [facility] [address] [id number] [address] [place] [id number] Sep, [facility] [address] [id number] [address] [place] [id number] Aug, [facility] [address] [id number] [address] [place] [id number] Aug, Hypertension I10 ; Coronary artery disease I25.10 and Arthritis M19.90 [facility] [address] [id number] [address] [place] [id number] Jun, [facility] [address] [id number] [address] [place] [id number] Jun, Essential hypertension, jayson gn 401.1 ; Other chronic pain 338.29 and Chronic airway obstruction, not elsewhere classified 496 [facility] [address] [id number] [address] [place] [id number] Jun, [facility] [address] [id number] [address] [place] [id number] Jun, [facility] [address] [facility] [id number] [address] [place] [id number] Jun, [facility] [address] [id number] [address] [place] [address], [place] [id number] May, [facility] [address] [id number] [address] [place] [address], [place] [id number] May, [facility] [address] [id number] [address] [place] [address], [place] [id number] Apr, [facility] [address] [id number] [address] [place] [address], [place] [id number] Apr, [facility] [address] [id number] [address] [place] [address], [place] [id number] Apr, [facility] [address] [id number] [address] [place] [address], [place] [id number] March, [facility] [address] [id number] [address] [place] [address], [place] [address] March, [facility] [address] [id number] [address] [place] [address], [place] [address] March, [facility] [address] [id number] [address] [place] [address], [place] [address] March, [facility] [address] [id number] [address] [place] [address], [place] [address] March, Sialadenitis 527.2 [facility] [address] [id number] [address] [place] [address], [place] [address] Feb, [facility] [address] [id number] [address] [place] [address], [place] [address] Feb, [facility] [address] [id number] [address] [place] [address], [place] [address] Feb, [facility] [address] [id number] [address] [place] [address], [place] [address] Feb, [facility] [address] [id number] [address] [place] [address], [place] [address] Feb, [facility] [address] [id number] [address] [place] [address], [place] [address] Jan, [facility] [address] [id number] [address] [place] [address], [place] [address] Jan, [facility] [address] [id number] [address] [place] [address], [place] [address] Jan, [facility] [address] [id number] [address] [place] [address], [place] [address] Jan, [facility] [address] [id number] [address] [place] [address], [place] [address] Jan, [facility] [address] [id number] [address] [place] [address], [place] [address] Jan, [facility] [address] [id number] [address] [place] [address], [place] [address] Dec, [facility] [address] [id number] [address] [place] [address], [place] [address] Dec, 2014 [facility] [address] [id number] [address] [place] [address], [place] [address] Dec, [facility] [address] [id number] [address] [place] [address], [place] [address] Dec, [facility] [address] [id number] [address] [place] [address], [place] [address] Dec, [facility] [address] [id number] [address] [place] [address], [place] [address] Dec, [facility] [address] [id number] [address] [place] [address], [place] [address] Nov, [facility] [address] [id number] [address] [place] [address], [place] [address] Nov, [facility] [address] [id number] [address] [place] [address], [place] [address] Nov, [facility] [address] [id number] [address] [place] [address], [place] [address] Nov, [facility] [address] [id number] [address] [place] [address], [place] [address] Nov, [facility] [address] [id number] [address] [place] [address], [place] [address] Nov, [facility] [address] [id number] [address] [place] [address], [place] [address] Nov, [facility] [address] [id number] [address] [place] [address], [place] [address] Nov, [facility] [address] [id number] [address] [place] [address], [place] [address] Nov, [facility] [address] [id number] [address] [place] [address], [place] [address] Nov, [facility] [address] [id number] [address] [place] [address], [place] [address] Nov, [facility] [address] [id number] [address] [place] [address], [place] [address] Nov, [facility] [address] [id number] [address] [place] [address], [place] [address] Nov, [facility] [address] [id number] [address] [place] [address], [place] [address] Nov, [facility] [address] [id number] [address] [place] [address], [place] [address] Oct, [facility] [address] [id number] [address] [place] [address], [place] [address] Oct, [facility] [address] [id number] [address] [place] [address], [place] [address] Oct, [facility] [address] [id number] [address] [place] [address], [place] [address] Oct, [facility] [address] [id number] [address] [place] [address], [place] [address] Oct, [facility] [address] [id number] [address] [place] [address], [place] [address] Oct, [facility] [address] [id number] [address] [place] [address], [place] [address] Oct, [facility] [address] [id number] [address] [place] [address], [place] [address] Oct, [facility] [address] [id number] [address] [place] [address], [place] [address] Oct, [facility] [address] [id number] [address] [place] [address], [place] [address] Sep, [facility] [address] [id number] [address] [place] [address], [place] [address] Sep, [facility] [address] [id number] [address] [place] [address], [place] [address] Sep, [facility] [address] [id number] [address] [place] [address], [place] [address] Sep, [facility] [address] [id number] [address] [place] [address], [place] [address] Sep, [facility] [address] [id number] [address] [place] [address], [place] [address] Sep, [facility] [address] [id number] [address] [place] [address], [place] [address] Sep, [facility] [address] [id number] [address] [place] [address], [place] [address] Sep, [facility] [address] [id number] [address] [place] [address], [place] [address] Sep, [facility] [address] [id number] [address] [place] [address], [place] [address] Sep, [facility] [address] [id number] [address] [place] [address], [place] [address] Sep, [facility] [address] [id number] [address] [place] [address], [place] [address] Sep, [facility] [address] [id number] [address] [place] [address], [place] [address] 30 Aug, 2014 [facility] [address] [id number] [address] [place] [address], [place] [address] 30 Aug, 2014 [facility] [address] [id number] [address] [place] [address], [place] [address] 29 Aug, 2014 [facility] [address] [id number] [address] [place] [address], [place] [address] Aug, [facility] [address] [id number] [address] [place] [address], [place] [address] Aug, [facility] [address] [id number] [address] [place] [address], [place] [address] Aug, [facility] [address] [id number] [address] [place] [address], [place] [address] Aug, [facility] [address] [id number] [address] [place] [address], [place] [address] 17 Aug, 2014 [facility] [address] [id number] [address] [place] [address], [place] [address] 30 Jul, 2013 [facility] [address] [id number] [address] [place] [address] 30 Jul, 2013 [facility] [address] [id number] [address] [place] [address] 30 Sep, 2013 [facility] [address] [id number] [address] [place] [address] 30 Sep, 2013 [facility] [address] [id number] [address] [place] [address], [place] [address] 25 Sep, 2013 [facility] [address] [id number] [address] [place] [address], [place] [address] 25 Sep, 2013 [facility] [address] [id number] [address] [place] [address] 15 Sep, 2013 [facility] [address] [id number] [address] [place] [address] Jul, [facility] [address] [id number] [address] [place] [address], [place] [address] Jul, [facility] [address] [id number] [address] [place] [address], [place] [address] Jul, [facility] [address] [id number] [address] [place] [address], [place] [address] Jun, [facility] [address] [id number] [address] [place] [address], [place] [address] Jun, [facility] [address] [id number] [address] [place] [address], [place] [address] Jun, [facility] [address] [id number] [address] [place] [address], [place] [address] Jun, [facility] [address] [id number] [address] [place] [address], [place] [address] Jun, [facility] [address] [id number] [address] [place] [address], [place] [address] Jun, [facility] [address] [id number] [address] [place] [address], [place] [address] Jun, [facility] [address] [id number] [address] [place] [address], [place] [address] Jun, [facility] [address] [id number] [address] [place] [address], [place] [address] Jun, [facility] [address] [id number] [address] [place] [address], [place] [address] Jun, [facility] [address] [id number] [address] [place] [address], [place] [address] Jun, [facility] [address] [id number] [address] [place] [address], [place] [address] Jun, [facility] [address] [id number] [address] [place] [address], [place] [address] Jun, [facility] [address] [id number] [facility] [place] [address] Jun, [facility] [address] [id number] [facility] [place] [address] Jun, [facility] [address] [id number] [facility] [place] [address] Jun, [facility] [address] [id number] [address] [place] [address], [place] [address] Jun, [facility] [address] [id number] [facility] [place] [address] Jun, [facility] [address] [id number] [address] [place] [address], [place] [address] Jun, [facility] [address] [id number] [address] [place] [address], [place] [address] Jun, [facility] [address] [id number] [address] [place] [address], [place] [address] Jun, [facility] [address] [id number] [address] [place] [address], [place] [address] Jun, [facility] [address] [id number] [address] [place] [address], [place] [address] May, [facility] [address] [id number] [address] [place] [address], [place] [address] May, [facility] [address] [id number] [address] [place] [address], [place] [address] May, [facility] [address] [id number] [address] [place] [address], [place] [address] May, [facility] [address] [id number] [address] [place] [address], [place] [address] May, [facility] [address] [id number] [address] [place] [address], [place] [address] May, [facility] [address] [id number] [address] [place] [address], [place] [address] May, [facility] [address] [id number] [facility] [place] [address] May, 2013 [facility] [address] [id number] [facility] [place] [address] May, [facility] [address] [id number] [facility] [place] [address] May, [facility] [address] [id number] [address] [place] [address], [place] [address] May, [facility] [address] [id number] [address] [place] [address], [place] [address] May, [facility] [address] [id number] [address] [place] [address], [place] [address] May, [facility] [address] [id number] [address] [place] [address], [place] [address] Apr, [facility] [address] [id number] [address] [place] [address], [place] [address] Apr, [facility] [address] [id number] [address] [place] [address], [place] [address] Apr, [facility] [address] [id number] [address] [place] [address], [place] [address] Apr, [facility] [address] [id number] [address] [place] [address], [place] [address] Apr, [facility] [address] [id number] [address] [place] [address], [place] [address] Apr, [facility] [address] [id number] [address] [place] [address], [place] [address] Apr, [facility] [address] [id number] [address] [place] [address], [place] [address] Apr, [facility] [address] [id number] [address] [place] [address], [place] [address] Apr, [facility] [address] [id number] [address] [place] [address], [place] [address] March, [facility] [address] [id number] [address] [place] [address], [place] [address] March, [facility] [address] [id number] [address] [place] [address], [place] [address] March, [facility] [address] [id number] [address] [place] [address], [place] [address] March, [facility] [address] [id number] [address] [place] [address], [place] [address] March, [facility] [address] [id number] [address] [place] [address], [place] [address] March, [facility] [address] [id number] [address] [place] [address], [place] [address] March, [facility] [address] [id number] [address] [place] [address], [place] [address] March, [facility] [address] [id number] [address] [place] [address], [place] [address] March, [facility] [address] [id number] [address] [place] [address], [place] [address] March, [facility] [address] [id number] [address] [place] [address], [place] [address] March, [facility] [address] [id number] [address] [place] [address], [place] [address] March, [facility] [address] [id number] [address] [place] [address], [place] [address] March, [facility] [address] [id number] [address] [place] [address], [place] [address] March, [facility] [address] [id number] [address] [place] [address], [place] [address] March, [facility] [address] [id number] [address] [place] [address], [place] [address] March, [facility] [address] [id number] [address] [place] [address], [place] [address] March, [facility] [address] [id number] [address] [place] [address], [place] [address] March, [facility] [address] [id number] [address] [place] [address], [place] [address] March, [facility] [address] [id number] [address] [place] [address], [place] [address] March, [facility] [address] [id number] [address] [place] [address], [place] [address] Feb, [facility] [address] [id number] [address] [place] [address], [place] [address] Feb, [facility] [address] [id number] [address] [place] [address], [place] [address] Feb, [facility] [address] [id number] [address] [place] [address], [place] [address] Feb, [facility] [address] [id number] [address] [place] [address], [place] [address] Feb, [facility] [address] [id number] [address] [place] [address], [place] [address] Feb, [facility] [address] [id number] [address] [place] [address], [place] [address] Feb, [facility] [address] [id number] [address] [place] [address], [place] [address] Feb, [facility] [address] [id number] [address] [place] [address], [place] [address] Jan, [facility] [address] [id number] [address] [place] [address], [place] [address] Jan, [facility] [address] [id number] [address] [place] [address], [place] [address] Jan, [facility] [address] [id number] [address] [place] [address], [place] [address] 24 Jan, 2014 [facility] [address] [id number] [address] [place] [address], [place] [address] 13 Jan, 2014 [facility] [address] [id number] [address] [place] [address], [place] [address] 13 Jan, 2014 [facility] [address] [id number] [address] [place] [address], [place] [address] Jan, [facility] [address] [id number] [address] [place] [address], [place] [address] Jan, [facility] [address] [id number] [address] [place] [address], [place] [address] Jan, [facility] [address] [id number] [address] [place] [address], [place] [address] Jan, [facility] [address] [id number] [address] [place] [address], [place] [address] 27 Dec, 2013 [facility] [address] [id number] [address] [place] [address], [place] [address] 26 Dec, 2013 [facility] [address] [id number] [address] [place] [address], [place] [address] 26 Dec, 2013 [facility] [address] [id number] [address] [place] [address], [place] [address] 2013 [facility] [address] [id number] [address] [place] [address] [address] 2013 [facility] [address] [id number] [address] [place] [address], [place] [address] 13 Dec, 2013 [facility] [address] [id number] [address] [place] [address], [place] [address] Dec, [facility] [address] [id number] [address] [place] [address], [place] [address] Dec, [facility] [address] [id number] [address] [place] [address], [place] [address] Nov, [facility] [address] [id number] [address] [place] [address], [place] [address] Nov, [facility] [address] [id number] [address] [place] [address], [place] [address] Nov, [facility] [address] [id number] [address] [place] [address], [place] [address] Nov, [facility] [address] [id number] [address] [place] [address], [place] [address] Nov, [facility] [address] [id number] [address] [place] [address], [place] [address] Nov, [facility] [address] [id number] [address] [place] [address], [place] [address] Nov, [facility] [address] [id number] [address] [place] [address], [place] [address] Nov, [facility] [address] [id number] [address] [place] [address], [place] [address] Nov, [facility] [address] [id number] [address] [place] [address], [place] [address] Nov, [facility] [address] [id number] [address] [place] [address], [place] [address] Nov, [facility] [address] [id number] [address] [place] [address], [place] [address] Nov, [facility] [address] [id number] [address] [place] [address], [place] [address] Nov, [facility] [address] [id number] [address] [place] [address], [place] [address] Oct, [facility] [address] [id number] [address] [place] [address], [place] [address] Oct, [facility] [address] [id number] [address] [place] [address], [place] [address] Oct, [facility] [address] [id number] [address] [place] [address], [place] [address] Oct, [facility] [address] [id number] [address] [place] [address], [place] [address] Oct, [facility] [address] [id number] [address] [place] [address], [place] [address] Oct, [facility] [address] [id number] [address] [place] [address], [place] [address] Oct, [facility] [address] [id number] [address] [place] [address], [place] [address] Oct, [facility] [address] [id number] [address] [place] [address], [place] [address] Oct, [facility] [address] [id number] [address] [place] [address], [place] [address] Oct, [facility] [address] [id number] [address] [place] [address], [place] [address] Oct, [facility] [address] [id number] [address] [place] [address], [place] [address] Oct, [facility] [address] [id number] [address] [place] [address], [place] [address] Oct, [facility] [address] [id number] [address] [place] [address], [place] [address] Oct, [facility] [address] [id number] [address] [place] [address], [place] [address] 14 Sep, 2013 [facility] [address] [id number] [address] [place] [id number] 14 Sep, 2013 [facility] [address] [id number] [address] [place] [address], [place] [address] 05 Sep, 2013 [facility] [address] [id number] [address] [place] [address], [place] [address] 05 Sep, 2013 [facility] [facility] [address] [id number] [address] [place] [address], [place] [address] Sep, [facility] [address] [id number] [address] [place] [address], [place] [address] Sep, [facility] [address] [id number] [address] [place] [address], [place] [address] Sep, [facility] [address] [id number] [address] [place] [address], [place] [address] Sep, [facility] [address] [id number] [address] [place] [address], [place] [address] Sep, [facility] [address] [id number] [address] [place] [address], [place] [address] Sep, [facility] [address] [id number] [address] [place] [address], [place] [address] Aug, [facility] [address] [id number] [address] [place] [address], [place] [address] Aug, [facility] [address] [id number] [address] [place] [address], [place] [address] Aug, [facility] [address] [id number] [address] [place] [address], [place] [address] Aug, [facility] [address] [id number] [address] [place] [address], [place] [address] Aug, [facility] [address] [id number] [address] [place] [address], [place] [address] Aug, [facility] [address] [id number] [address] [place] [address], [place] [address] Aug, [facility] [address] [id number] [address] [place] [address], [place] [address] Aug, [facility] [address] [id number] [address] [place] [address], [place] [address] Aug, [facility] [address] [id number] [address] [place] [address], [place] [address] Aug, [facility] [address] [id number] [address] [place] [address], [place] [address] 18 Aug, 2013 [facility] [address] [id number] [address] [place] [address], [place] [address] 18 Aug, 2013 [facility] [address] [id number] [address] [place] [address], [place] [address] 18 Aug, 2013 [facility] [address] [id number] [address] [place] [address], [place] [address] 18 Aug, 2013 [facility] [address] [id number] [address] [place] [address], [place] [address] 17 Aug, 2013 [facility] [address] [id number] [address] [place] [address], [place] [address] 14 Aug, 2013 [facility] [address] [id number] [address] [place] [address], [place] [address] 14 Aug, 2013 [facility] [address] [id number] [address] [place] [address], [place] [address] Aug, [facility] [address] [id number] [address] [place] [address], [place] [address] 20 Jul, 2013 [facility] [address] [id number] [address] [place] [address], [place] [address] 19 Jul, 2013 [facility] [address] [id number] [address] [place] [address], [place] [address] 18 Jul, 2013 [facility] [address] [id number] [address] [place] [address], [place] [address] 11 Jul, 2013 [facility] [address] [id number] [address] [place] [address] 11 Jul, 2013 [facility] [address] [id number] [address] [place] [address], [place] [address] Jun, [facility] [address] [id number] [address] [place] [address], [place] [address] Jun, [facility] [address] [id number] [address] [place] [address], [place] [address] Jun, [facility] [address] [id number] [address] [place] [address] Jun, [facility] [address] [id number] [address] [place] [address], [place] [address] Jun, [facility] [address] [id number] [address] [place] [address], [place] [address] Jun, [facility] [address] [id number] [address] [place] [address], [place] [address] Jun, [facility] [address] [id number] [address] [place] [address], [place] [address] Jun, [facility] [address] [id number] [address] [place] [address], [place] [address] Jun, [facility] [address] [id number] [address] [place] [address], [place] [address] Jun, [facility] [address] [id number] [address] [place] [address], [place] [address] May, [facility] [address] [id number] [address] [place] [address], [place] [address] May, [facility] [address] [id number] [address] [place] [address], [place] [address] May, [facility] [address] [id number] [address] [place] [address], [place] [address] May, [facility] [address] [id number] [address] [place] [address], [place] [address] May, [facility] [address] [id number] [address] [place] [address], [place] [address] May, [facility] [address] [id number] [address] [place] [address], [place] [address] May, [facility] [address] [id number] [address] [place] [address], [place] [address] May, [facility] [address] [id number] [address] [place] [address], [place] [address] May, [facility] [address] [id number] [facility] [place] [address] Apr, [facility] [address] [id number] [address] [place] [address], [place] [address] Apr, [facility] [address] [id number] [address] [place] [address], [place] [address] Apr, [facility] [address] [id number] [address] [place] [address], [place] [address] Apr, [facility] [address] [id number] [address] [place] [address], [place] [address] Apr, [facility] [address] [id number] [address] [place] [address], [place] [address] Apr, [facility] [address] [id number] [address] [place] [address], [place] [address] Apr, [facility] [address] [id number] [address] [place] [address], [place] [address] March, [facility] [address] [id number] [address] [place] [address], [place] [address] Feb, [facility] [address] [id number] [address] [place] [address], [place] [address] Feb, [facility] [address] [id number] [address] [place] [address], [place] [address] Feb, [facility] [address] [id number] [address] [place] [address], [place] [address] 28 Jan, 2013 [facility] [address] [id number] [address] [place] [address], [place] [address] Jan, [facility] [address] [id number] [address] [place] [address], [place] [address] 19 Jan, 2013 [facility] [address] [id number] [address] [place] [address], [place] [address] 14 Jan, 2013 [facility] [address] [id number] [address] [place] [address], [place] [address] Jan, [facility] [address] [id number] [facility] [place] [address] 08 Jan, 2013 [facility] [address] [id number] [address] [place] [address], [place] [address] 07 Jan, 2013 [facility] [address] [id number] [address] [place] [address], [place] [address] 04 Jan, 2013 [facility] [address] [id number] [address] [place] [address], [place] [address] 28 Dec, 2012 [facility] [address] [id number] [address] [place] [address], [place] [address] 25 Dec, 2012 [facility] [address] [id number] [address] [place] [address], [place] [address] 13 Dec, 2012 [facility] [address] [id number] [address] [place] [address], [place] [address] Dec, [facility] [address] [id number] [address] [place] [address], [place] [address] 07 Dec, 2012 [facility] [address] [id number] [address] [place] [address], [place] [address] 06 Dec, 2012 [facility] [address] [id number] [address] [place] [address], [place] [address] 05 Dec, 2012 [facility] [address] [id number] [address] [place] [address], [place] [address] Nov, [facility] [address] [id number] [address] [place] [address], [place] [address] 24 Nov, 2012 [facility] [address] [id number] [address] [place] [address], [place] [address] 18 Nov, 2012 [facility] [address] [id number] [address] [place] [address], [place] [address] 15 Nov, 2012 [facility] [address] [id number] [address] [place] [address], [place] [address] 10 Nov, 2012 [facility] [address] [id number] [address] [place] [address], [place] [address] Nov, [facility] [address] [id number] [address] [place] [address], [place] [address] Nov, [facility] [address] [id number] [address] [place] [address], [place] [address] Oct, [facility] [address] [id number] [address] [place] [address], [place] [address] Oct, [facility] [address] [id number] [address] [place] [address], [place] [address] Oct, [facility] [address] [id number] [address] [place] [address], [place] [address] Oct, [facility] [address] [id number] [address] [place] [address], [place] [address] Oct, [facility] [address] [id number] [address] [place] [address], [place] [address] Oct, [facility] [address] [id number] [address] [place] [address], [place] [address] Oct, [facility] [address] [id number] [address] [place] [address], [place] [address] Oct, [facility] [address] [id number] [address] [place] [address], [place] [address] Oct, [facility] [address] [id number] [address] [place] [address], [place] [address] Oct, [facility] [address] [id number] [address] [place] [address], [place] [address] Oct, [facility] [address] [id number] [address] [place] [address], [place] [address] Oct, [facility] [address] [id number] [address] [place] [address], [place] [address] Sep, [facility] [address] [id number] [address] [place] [address], [place] [address] Sep, [facility] [address] [id number] [address] [place] [address], [place] [address] Sep, [facility] [address] [id number] [address] [place] [address], [place] [address] Sep, [facility] [address] [id number] [address] [place] [address], [place] [address] Sep, [facility] [address] [id number] [address] [place] [address], [place] [address] Sep, [facility] [address] [id number] [address] [place] [address], [place] [address] Sep, [facility] [address] [id number] [address] [place] [address], [place] [address] Sep, [facility] [address] [id number] [address] [place] [address], [place] [address] Sep, [facility] [address] [id number] [address] [place] [address], [place] [address] Sep, [facility] [address] [id number] [address] [place] [address], [place] [address] Sep, [facility] [address] [id number] [address] [place] [address], [place] [address] Aug, [facility] [address] [id number] [address] [place] [address], [place] [address] Aug, [facility] [address] [id number] [address] [place] [address] Aug, [facility] [address] [id number] [address] [place] [address], [place] [address] Aug, [facility] [address] [id number] [address] [place] [address], [place] [address] Aug, [facility] [address] [id number] [address] [place] [address], [place] [address] Aug, [facility] [address] [id number] [address] [place] [address] [place] [address] Aug, [facility] [address] [id number] [address] [place] [address], [place] [address] Aug, [facility] [address] [id number] [address] [place] [address], [place] [address] Aug, [facility] [address] [id number] [address] [place] [address], [place] [address] Aug, [facility] [address] [id number] [address] [place] [address], [place] [address] 22 Jul, 2012 [facility] [address] [id number] [address] [place] [address], [place] [address] 20 Jul, 2012 [facility] [address] [id number] [address] [place] [address], [place] [address] Jul, [facility] [address] [id number] [address] [place] [address], [place] [address] Jul, [facility] [address] [id number] [address] [place] [address], [place] [address] Jun, [facility] [address] [id number] [address] [place] [address], [place] [address] Jun, [facility] [address] [id number] [address] [place] [address], [place] [address] Jun, [facility] [address] [id number] [address] [place] [address], [place] [address] Jun, [facility] [address] [id number] [address] [place] [address], [place] [address] Jun, [facility] [address] [id number] [address] [place] [address], [place] [address] Jun, [facility] [address] [id number] [address] [place] [address], [place] [address] Jun, [facility] [address] [id number] [address] [place] [address], [place] [address] May, [facility] [address] [id number] [address] [place] [address], [place] [address] May, [facility] [address] [id number] [address] [place] [address], [place] [address] May, [facility] [address] [id number] [address] [place] [address], [place] [address] May, [facility] [address] [id number] [address] [place] [address], [place] [address] May, [facility] [address] [id number] [address] [place] [address], [place] [address] Apr, [facility] [address] [id number] [address] [place] [address], [place] [address] Apr, [facility] [address] [id number] [address] [place] [address], [place] [address] Apr, [facility] [address] [id number] [address] [place] [address], [place] [address] Apr, [facility] [address] [id number] [address] [place] [address], [place] [address] Apr, [facility] [address] [id number] [address] [place] [address], [place] [address] March, [facility] [address] [id number] [address] [place] [address], [place] [address] March, [facility] [address] [id number] [address] [place] [address], [place] [address] March, [facility] [address] [id number] [address] [place] [address], [place] [address] March, [facility] [address] [id number] [address] [place] [address], [place] [address] March, [facility] [address] [id number] [address] [place] [address], [place] [address] March, [facility] [address] [id number] [address] [place] [address], [place] [address] March, [facility] [address] [id number] [address] [place] [address], [place] [address] March, [facility] [address] [id number] [address] [place] [address], [place] [address] March, [facility] [address] [id number] [address] [place] [address], [place] [address] March, [facility] [address] [id number] [address] [place] [address], [place] [address] Feb, [facility] [address] [id number] [address] [place] [address], [place] [address] Feb, [facility] [address] [id number] [address] [place] [address], [place] [address] Feb, [facility] [address] [id number] [address] [place] [address], [place] [address] Feb, [facility] [address] [id number] [address] [place] [address], [place] [address] Feb, [facility] [address] [id number] [address] [place] [address], [place] [address] Feb, [facility] [address] [id number] [address] [place] [address], [place] [address] Feb, [facility] [address] [id number] [address] [place] [address], [place] [address] Feb, [facility] [address] [id number] [address] [place] [address], [place] [address] Feb, [facility] [address] [id number] [address] [place] [address], [place] [address] Jan, [facility] [address] [id number] [address] [place] [address], [place] [address] Jan, [facility] [address] [id number] [address] [place] [address], [place] [address] Jan, [facility] [address] [id number] [address] [place] [address], [place] [address] Jan, [facility] [address] [id number] [address] [place] [address], [place] [address] Dec, [facility] [address] [id number] [address] [place] [address], [place] [address] Dec, [facility] [address] [id number] [address] [place] [address], [place] [address] Nov, [facility] [address] [id number] [address] [place] [address], [place] [address] Nov, [facility] [address] [id number] [address] [place] [address], [place] [address] Nov, [facility] [address] [id number] [address] [place] [address], [place] [address] Nov, [facility] [address] [id number] [address] [place] [address], [place] [address] Nov, [facility] [address] [id number] [address] [place] [address], [place] [address] Oct, [facility] [address] [id number] [address] [place] [address], [place] [address] Oct, [facility] [address] [id number] [address] [place] [address], [place] [address] Oct, [facility] [address] [id number] [address] [place] [address], [place] [address] Oct, [facility] [address] [id number] [address] [place] [address], [place] [address] Oct, [facility] [address] [id number] [address] [place] [address], [place] [address] Oct, [facility] [address] [id number] [address] [place] [address], [place] [address] Oct, [facility] [address] [id number] [address] [place] [address], [place] [address] Oct, [facility] [address] [facility] [id number] [address] [place] [address] Sep, IMMUNIZATIONS No Known Immunizations SOCIAL HISTORY [...] fever, discharged 11/27/2017 11/26/2017 Hospitalization History [facility]- Went Unrepsonsive, Hit head 2017 Hospitalization History [facility]- Back Pain 8
--- OUTSIDE RECORDS SUMMARY | 2020-06-18 15:12 | XMS REPORT ---
Author Author Sanjuanita JOHNSON [facility] Address [address] [place] [address] Care Team Providers Care International Trade Specialist Name Role Phone ELIZABETHROYASHARIF Unavailable PROBLEMS Type Condition ICD9-CM Code MKK19-NK Code Onset Dates Condition S tatus SNOMED Code Problem Coronary artery disease I25.10 Active 63396066 Problem Hypertension I10 Active 7339215 3 Problem Other chronic pain G89.29 Active 8 4116901 Problem Hyperlipidemia E78.5 Active 72876 004 Problem Type 2 diabetes mellitus wit hout complication, without long-term current use of insulin E11.9 Active 330529501 Problem Low back pain M54.5 Active 809093 009 Problem Pharyngeal dysphagia R13.13 Active [id number] Problem Anxiety F41.9 Active 64458803 Problem Peripheral vascular disease I73.9 Ac tive 126087335 Problem Suprapubic catheter Z93.59 Active 934449320 Problem Reactive depression F32.9 Active 87453733 Problem Neurogenic bladder N31.9 Active 3 69597906 Problem Ventral hernia without obstruction or gangrene K43 .9 Active 919408060 Problem Insomnia G47.00 Active 687183196 Problem Paroxysmal atrial fibrillation I48.0 Active 934511863 Problem Postmenopausal atrophic vaginitis N95.2 Active 75989530 Problem Encounter for suprapubic catheter care Z43.5 Active [id number] ALLERGIES No Information ENCOUNTERS Encounter Location Date Diagnosis [facility] [address] [facility] [id number] [address] [place] [address] Jul, Strain of right shoulder, scherer bsequent encounter S46.911D and Anxiety F41.9 [facility] [address] [id number] [address] [place] [phone] 03 Jul, 2019 Anxiety F41.9 [facility] [address] [facility] [id number] [address] [place] [phone] Jun, [facility] [address] [id number] [address] [place] [phone] Jun, [place] [address] [id number] [address] [place] [phone] Jun, [place] [address] [id number] [address] [place] [phone] Jun, Strain of right shoulder, scherer bsequent encounter S46.911D [place] [address] [id number] [address] [place] [phone] Jun, Strain of right shoulder, scherer bsequent encounter S46.911D [place] [address] [id number] [address] [place] [phone] Jun, Anxiety F41.9 Via [facility] [address] [place] [id number] Jun, Neurogenic bladder N31.9 and Anxiety F41 .9 Via [facility] [address] [place] [id number] May, Anxiety F41.9 [place] [address] [id number] [address] [place] [address] May, Dysuria R30.0 [place] [address] [id number] [address] [place] [phone] May, Strain of right shoulder, scherer bsequent encounter S46.911D and Anxiety F41.9 [place] [address] [id number] [address] [place] [phone] Apr, Via [facility] [address] [place] [address] Apr, Strain of right shoulder, subsequent enc ounter S46.911D [place] [address] [id number] [address] [place] [phone] Apr, Strain of right shoulder, scherer bsequent encounter S46.911D and Anxiety F41.9 Via [facility] [address] [place] [id number] 13 Apr, 2019 Type 2 diabetes mellitus without complic ation, without long-term current use of insulin E11.9 and Neurogenic bladder N31.9 Via [employer] [address] [place] [id number] Apr, Strain of right shoulder, subsequent enc ounter S46.911D ; History of GI bleed Z87.19 ; Neurogenic bladder N31.9 and Reactive depression F32.9 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 [address] [id number] [address] [place] [phone] March, Cough R05 [facility] [address] [id number] [address] [place] [phone] March, Other chronic pain G89.29 [facility] [address] [id number] [address] [place] [phone] March, Anxiety F41.9 [facility] [address] [id number] [address] [place] [phone] March, [facility] [address] [id number] [address] [place] [phone] Feb, Other chronic pain G89.29 [facility] [address] [id number] [address] [place] [phone] Feb, Anxiety F41.9 [facility] [address] [id number] [address] [place] [phone] Feb, Other chronic pain G89.29 Via [facility] [address] [place] [id number] Feb, Neurogenic bladder N31.9 and Suprapubic catheter Z93.59 [facility] [address] [id number] [address] [place] [phone] Jan, Anxiety F41.9 [facility] [address] [id number] [address] [place] [phone] Dec, Anxiety F41.9 [facility] [address] [id number] [address] [place] [address] Dec, Other chronic pain G89.29 an d Anxiety F41.9 [facility] [address] [id number] [address] [place] [phone] Dec, Via [facility] [address] [place] [id number] Dec, Neurogenic bladder N31.9 and Suprapubic catheter Z93.59 [facility] [address] [id number] [address] [place] [phone] Nov, Other chronic pain G89.29 an d Anxiety F41.9 [facility] [address] [id number] [address] [place] [phone] Nov, Via [facility] [address] [place] [address] Nov, Suprapubic catheter Z93.59 [facility] [address] [id number] [address] [place] [phone] Oct, Other chronic pain G89.29 an d Anxiety F41.9 [facility] [address] [id number] [address] [place] [phone] Oct, [facility] [address] [id number] [address] [place] [phone] Oct, Suprapubic catheter Z93.59 [facility] [address] [id number] [address] [place] [phone] Oct, Via [facility] [address] [place] [id number] Oct, [facility] [address] [id number] [address] [place] [phone] Oct, Anxiety F41.9 [facility] [address] [id number] [address] [place] [phone] Oct, Anxiety F41.9 Via [facility] [employer] [address] [place] [id number] Oct, Other chronic pain G89.29 [facility] [address] [id number] [address] [place] [phone] 14 Sep, 2018 Other chronic pain G89.29 Via [employer] [address] [place] [id number] Sep, Suprapubic catheter Z93.59 and Cervicalg ia M54.2 [facility] [address] [id number] [address] [place] [phone] Sep, [facility] [address] [id number] [address] [place] [phone] Sep, [facility] [address] [id number] [address] [place] [address] Sep, Via [employer] [address] [place] [id number] Aug, Cystitis N30.90 [facility] [address] [id number] [address] [place] [phone] Aug, [facility] [address] [id number] [address] [place] [phone] Aug, Other chronic pain G89.29 [facility] [address] [id number] [address] [place] [phone] Aug, Via [employer] [address] [place] [id number] Aug, Encounter for suprapubic catheter care Z 43.5 [facility] [address] [id number] [address] [place] [phone] Jul, Via [employer] [address] [place] [id number] Jul, [facility] [address] [id number] [address] [place] [phone] Jul, Other chronic pain G89.29 [facility] [address] [id number] [address] [place] [phone] Jul, [facility] [address] [id number] [address] [place] [phone] Jul, Via [employer] [address] [place] [address] Jun, Postmenopausal atrophic vaginitis N95.2 [facility] [address] [id number] [address] [place] [phone] Jun, Other chronic pain G89.29 [facility] [address] [id number] [address] [place] [phone] Jun, Via [employer] [address] [place] [address] May, Anxiety F41.9 ; Type 2 diabetes mellitus without complication, without long-term current use of insulin E11.9 ; Hypertension I10 ; Low back pain M54.5 ; Paroxysmal atrial fibrillation I48.0 and 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 [facility] [address] [id number] [address] [place] [phone] May, Other chronic pain G89.29 Via [employer] [address] [place] [address] May, Low back pain M54.5 [facility] [address] [id number] [address] [place] [phone] May, [facility] [address] [id number] [address] [place] [phone] Apr, Other chronic pain G89.29 [facility] [address] [id number] [address] [place] [phone] Apr, [facility] [address] [id number] [address] [place] [phone] Apr, Via [employer] [address] [place] [address] Apr, Closed compression fracture of L3 lumbar vertebra with routine healing, subsequent encounter S32.030D [facility] [employer] [address] [place] [id number] Apr, Low back pain M54.5 [facility] [employer] [address] [place] [address] Apr, Coccydynia M53.3 [facility] [address] [id number] [address] [place] [phone] March, [facility] [address] [id number] [address] [place] [phone] March, Other chronic pain G89.29 [facility] [address] [id number] [address] [place] [phone] March, [facility] [address] [id number] [address] [place] [phone] March, [facility] [address] [id number] [address] [place] [phone] Feb, [facility] [address] [id number] [address] [place] [phone] Feb, Other chronic pain G89.29 Via [employer] [address] [place] [id number] Feb, Other chronic pain G89.29 and Anxiety F4 1.9 [facility] [address] [facility] [id number] [address] [place] [phone] Feb, [facility] [address] [facility] [id number] [address] [place] [phone] Jan, [facility] [address] [facility] [id number] [address] [place] [phone] Jan, [facility] [address] [facility] [id number] [address] [place] [phone] Jan, [facility] [address] [facility] [id number] [address] [place] [phone] Jan, [facility] [address] 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 [address] [facility] [id number] [address] [place] [phone] Nov, [facility] [address] [id number] [id number] Nov, Anxiety F41.9 Via [facility] [address] [place] [id number] Nov, Status post surgery Z98.890 ; Confused R 41.0 ; Anxiety F41.9 and Other chronic pain G89.29 [place] [address] [id number] [place] [address] Nov, Other chronic pain G89.29 [facility] [address] [id number] [address] [place] [phone] Oct, [facility] [address] [id number] [place] [address] Oct, Other chronic pain G89.29 [facility] [address] [id number] [address] [place] [phone] Oct, Anxiety F41.9 [facility] [address] [id number] [place] [id number] Sep, Other chronic pain G89.29 [facility] [address] [id number] [place] [id number] Sep, Via [facility] [address] [place] [address] Aug, Dysuria R30.0 and Anxiety F41.9 [facility] [address] [id number] [address] [place] [phone] Aug, [facility] [address] [id number] [place] [id number] Aug, Other chronic pain G89.29 [facility] [address] [facility] [id number] [address] [place] [phone] Jul, Other chronic pain G89.29 [facility] [address] [id number] [place] [id number] Jun, [facility] [address] [id number] [place] [id number] Jun, Other chronic pain G89.29 [facility] [address] [id number] [address] [place] [address] Jun, [facility] [address] [facility] [id number] [address] [place] [address] May, Other chronic pain G89.29 [facility] [address] [id number] [address] [place] [address] Apr, Other chronic pain G89.29 Via [facility] [employer] [address] [place] [id number] Apr, Reactive depression F32.9 and Pharyngeal dysphagia R13.13 [facility] [address] [id number] [address] [place] [id number] Apr, Urinary tract infection with out hematuria, site unspecified N39.0 [facility] [address] [id number] [address] [place] [address] March, Other chronic pain G89.29 [place] [address] [id number] [address] [place] [address] Feb, Other chronic pain G89.29 [place] [address] [id number] [address] [place] [phone] Feb, [facility] [address] [id number] [place] [id number] Feb, Via [employer] [address] [place] [id number] Feb, Dysuria R30.0 and Ventral hernia without obstruction or gangrene K43.9 [place] [address] [id number] [address] [place] [phone] Jan, Other chronic pain G89.29 [facility] [address] [id number] [place] [id number] Dec, Other chronic pain G89.29 [facility] [address] [id number] [address] [place] [phone] Nov, Other chronic pain G89.29 Via [facility] [employer] [address] [place] [id number] Nov, Lymphadenitis I88.9 [facility] [address] [id number] [address] [place] [phone] Nov, Other chronic pain G89.29 [facility] [address] [id number] [address] [place] [phone] Nov, [facility] [address] [id number] [place] [id number] Nov, Other chronic pain G89.29 Via [facility] [address] [place] [id number] Oct, Low back pain M54.5 ; Hypertension I10 a nd Type 2 diabetes mellitus without complication, without long-term current use of insulin E11.9 [facility] [address] [id number] [address] [place] [phone] Oct, [facility] [address] [id number] [address] [place] [phone] Oct, [facility] [address] [id number] [address] [place] [phone] Oct, [facility] [address] [id number] [address] [place] [phone] Oct, [facility] [address] [id number] [address] [place] [phone] Sep, [facility] [address] [id number] [address] [place] [phone] Sep, [facility] [address] [id number] [address] [place] [id number] Aug, Other chronic pain G89.29 [facility] [address] [id number] [address] [place] [phone] Jul, [facility] [address] [id number] [address] [place] [phone] Jul, [facility] [address] [id number] [address] [place] [phone] Jul, [facility] [address] [id number] [address] [place] [phone] Jun, [facility] [address] [id number] [address] [place] [phone] Jun, [facility] [address] [place] [id number] Jun, Low back pain M54.5 ; Other chronic pain G89.29 and Coronary artery disease I25.10 [facility] [address] [id number] [address] [place] [phone] Jun, [facility] [address] [id number] [address] [place] [phone] May, [facility] [address] [id number] [address] [place] [phone] May, [facility] [address] [id number] [address] [place] [phone] May, Other chronic pain G89.29 [facility] [address] [id number] [address] [place] [phone] May, [facility] [address] [id number] [address] [place] [id number] Apr, [facility] [address] [id number] [address] [place] [phone] Apr, Acute cystitis without hemat uria N30.00 [facility] [address] [id number] [address] [place] [id number] 16 Apr, 2016 Acute cystitis without hemat uria N30.00 ; Coronary artery disease I25.10 ; Low back pain M54.5 and Other chronic pain G89.29 [facility] [address] [id number] [address] [place] [id number] Apr, Other chronic pain G89.29 [facility] [address] [id number] [address] [place] [phone] March, Other chronic pain G89.29 [facility] [address] [id number] [address] [place] [phone] Feb, [facility] [address] [id number] [address] [place] [phone] 15 Feb, 2016 Arthritis M19.90 [facility] [address] [id number] [address] [place] [phone] 13 Feb, 2016 [facility] [address] [id number] [address] [place] [phone] 30 Jan, 2016 [facility] [address] [id number] [address] [place] [id number] Jan, [facility] [address] [id number] [address] [place] [phone] Jan, Other chronic pain G89.29 [facility] [address] [id number] [address] [place] [address] Jan, Hypertension I10 ; Coronary artery disease I25.10 and Insomnia G47.00 [facility] [address] [id number] [address] [place] [id number] Jan, [facility] [address] [id number] [address] [place] [id number] Dec, Right hip pain M25.551 [facility] [address] [id number] [address] [place] [id number] Dec, [facility] [address] [id number] [address] [place] [phone] Dec, [facility] [address] [id number] [address] [place] [id number] Dec, [facility] [address] [id number] [address] [place] [address] Dec, Other chronic pain G89.29 [facility] [address] [id number] [address] [place] [phone] Dec, [facility] [address] [id number] [address] [place] [id number] Nov, [facility] [address] [id number] [address] [place] [id number] Nov, Other chronic pain G89.29 [facility] [address] [id number] [address] [place] [address] Nov, Right hip pain M25.551 and C oronary artery disease I25.10 [facility] [address] [id number] [address] [place] [id number] Nov, Other chronic pain G89.29 [facility] [address] [id number] [address] [place] [id number] Oct, [facility] [address] [id number] [address] [place] [phone] Oct, [facility] [address] [id number] [address] [place] [phone] Sep, [facility] [address] [id number] [address] [place] [id number] Sep, [facility] [address] [id number] [address] [place] [id number] Aug, [facility] [address] [id number] [address] [place] [id number] Aug, Hypertension I10 ; Coronary artery disease I25.10 and Arthritis M19.90 [facility] [address] [id number] [address] [place] [id number] Jun, [facility] [address] [id number] [address] [place] [phone] Jun, Essential hypertension, jayson gn 401.1 ; Other chronic pain 338.29 and Chronic airway obstruction, not elsewhere classified 496 [facility] [address] [id number] [address] [place] [id number] Jun, [facility] [address] [id number] [address] [place] [id number] Jun, [facility] [address] [facility] [id number] [address] [place] [phone] Jun, [facility] [address] [id number] [address] [place] [address], [place] [address] May, [facility] [address] [id number] [address] [place] [address], [place] [address] May, [facility] [address] [id number] [address] [place] [address], [place] [address] Apr, [facility] [address] [id number] [address] [place] [address], [place] [address] Apr, [facility] [address] [id number] [address] [place] [address], [place] [address] Apr, [facility] [address] [id number] [address] [place] [address], [place] [address] March, [facility] [address] [id number] [address] [place] [address], [place] [address] March, [facility] [address] [id number] [address] [place] [address], [place] [address] March, [facility] [address] [id number] [address] [place] [address], [place] [address] March, [facility] [address] [id number] [address] [place] [address], [place] [address] March, Sialadenitis 527.2 [facility] [address] [id number] [address] [place] [address], [place] [address] Feb, [facility] [address] [id number] [address] [place] [address], [place] [address] Feb, [facility] [address] [id number] [address] [place] [address], [place] [address] Feb, [facility] [address] [id number] [address] [place] [address], [place] [address] Feb, [facility] [address] [id number] [address] [place] [address], [place] [address] Feb, [facility] [address] [id number] [address] [place] [address], [place] [address] Jan, [facility] [address] [id number] [address] [place] [address], [place] [address] Jan, [facility] [address] [id number] [address] [place] [address], [place] [address] Jan, [facility] [address] [id number] [address] [place] [address], [place] [address] Jan, [facility] [address] [id number] [address] [place] [address], [place] [address] Jan, [facility] [address] [id number] [address] [place] [address], [place] [address] Jan, [facility] [address] [id number] [address] [place] [address], [place] [address] Dec, [facility] [address] [id number] [address] [place] [address], [place] [address] Dec, 2014 [facility] [address] [id number] [address] [place] [address], [place] [address] Dec, [facility] [address] [id number] [address] [place] [address], [place] [address] Dec, [facility] [address] [id number] [address] [place] [address], [place] [address] Dec, [facility] [address] [id number] [address] [place] [address], [place] [address] Dec, [facility] [address] [id number] [address] [place] [address], [place] [address] Nov, [facility] [address] [id number] [address] [place] [address], [place] [address] Nov, [facility] [address] [id number] [address] [place] [address], [place] [address] Nov, [facility] [address] [id number] [address] [place] [address], [place] [address] Nov, [facility] [address] [id number] [address] [place] [address], [place] [address] Nov, [facility] [address] [id number] [address] [place] [address], [place] [address] Nov, [facility] [address] [id number] [address] [place] [address], [place] [address] Nov, [facility] [address] [id number] [address] [place] [address], [place] [address] Nov, [facility] [address] [id number] [address] [place] [address], [place] [address] Nov, [facility] [address] [id number] [address] [place] [address], [place] [address] Nov, [facility] [address] [id number] [address] [place] [address], [place] [address] Nov, [facility] [address] [id number] [address] [place] [address], [place] [address] Nov, [facility] [address] [id number] [address] [place] [address], [place] [address] Nov, [facility] [address] [id number] [address] [place] [address], [place] [address] Nov, [facility] [address] [id number] [address] [place] [address], [place] [address] Oct, [facility] [address] [id number] [address] [place] [address], [place] [address] Oct, [facility] [address] [id number] [address] [place] [address], [place] [address] Oct, [facility] [address] [id number] [address] [place] [address], [place] [address] Oct, [facility] [address] [id number] [address] [place] [address], [place] [address] Oct, [facility] [address] [id number] [address] [place] [address], [place] [address] Oct, [facility] [address] [id number] [address] [place] [address], [place] [address] Oct, [facility] [address] [id number] [address] [place] [address], [place] [address] Oct, [facility] [address] [id number] [address] [place] [address], [place] [address] Oct, [facility] [address] [id number] [address] [place] [address], [place] [address] Sep, [facility] [address] [id number] [address] [place] [address], [place] [address] Sep, [facility] [address] [id number] [address] [place] [address], [place] [address] Sep, [facility] [address] [id number] [address] [place] [address], [place] [address] Sep, [facility] [address] [id number] [address] [place] [address], [place] [address] Sep, [facility] [address] [id number] [address] [place] [address], [place] [address] Sep, [facility] [address] [id number] [address] [place] [address], [place] [address] Sep, [facility] [address] [id number] [address] [place] [address], [place] [address] Sep, [facility] [address] [id number] [address] [place] [address], [place] [address] Sep, [facility] [address] [id number] [address] [place] [address], [place] [address] Sep, [facility] [address] [id number] [address] [place] [address], [place] [address] Sep, [facility] [address] [id number] [address] [place] [address], [place] [address] Sep, [facility] [address] [id number] [address] [place] [address], [place] [address] 30 Aug, 2014 [facility] [address] [id number] [address] [place] [address], [place] [address] 30 Aug, 2014 [facility] [address] [id number] [address] [place] [address], [place] [address] 29 Aug, 2014 [facility] [address] [id number] [address] [place] [address], [place] [address] Aug, [facility] [address] [id number] [address] [place] [address], [place] [address] Aug, [facility] [address] [id number] [address] [place] [address], [place] [address] Aug, [facility] [address] [id number] [address] [place] [address], [place] [address] Aug, [facility] [address] [id number] [address] [place] [address], [place] [address] 17 Aug, 2014 [facility] [address] [id number] [address] [place] [address], [place] [address] 30 Jul, 2013 [facility] [address] [id number] [address] [place] [address] 30 Jul, 2013 [facility] [address] [id number] [address] [place] [address] 30 Sep, 2013 [facility] [address] [id number] [address] [place] [address] 30 Sep, 2013 [facility] [address] [id number] [address] [place] [address], [place] [address] 25 Sep, 2013 [facility] [address] [id number] [address] [place] [address], [place] [address] 25 Sep, 2013 [facility] [address] [id number] [address] [place] [address] 15 Sep, 2013 [facility] [address] [id number] [address] [place] [address] Jul, [facility] [address] [id number] [address] [place] [address], [place] [address] Jul, [facility] [address] [id number] [address] [place] [address], [place] [address] Jul, [facility] [address] [id number] [address] [place] [address], [place] [address] Jun, [facility] [address] [id number] [address] [place] [address], [place] [address] Jun, [facility] [address] [id number] [address] [place] [address], [place] [address] Jun, [facility] [address] [id number] [address] [place] [address], [place] [address] Jun, [facility] [address] [id number] [address] [place] [address], [place] [address] Jun, [facility] [address] [id number] [address] [place] [address], [place] [address] Jun, [facility] [address] [id number] [address] [place] [address], [place] [address] Jun, [facility] [address] [id number] [address] [place] [address], [place] [address] Jun, [facility] [address] [id number] [address] [place] [address], [place] [address] Jun, [facility] [address] [id number] [address] [place] [address], [place] [address] Jun, [facility] [address] [id number] [address] [place] [address], [place] [address] Jun, [facility] [address] [id number] [address] [place] [address], [place] [address] Jun, [facility] [address] [id number] [address] [place] [address], [place] [address] Jun, [facility] [address] [id number] [facility] [place] [address] Jun, [facility] [address] [id number] [facility] [place] [address] Jun, [facility] [address] [id number] [facility] [place] [address] Jun, [facility] [address] [id number] [address] [place] [address], [place] [address] Jun, [facility] [address] [id number] [facility] [place] [address] Jun, [facility] [address] [id number] [address] [place] [address], [place] [address] Jun, [facility] [address] [id number] [address] [place] [address], [place] [address] Jun, [facility] [address] [id number] [address] [place] [address], [place] [address] Jun, [facility] [address] [id number] [address] [place] [address], [place] [address] Jun, [facility] [address] [id number] [address] [place] [address], [place] [address] May, [facility] [address] [id number] [address] [place] [address], [place] [address] May, [facility] [address] [id number] [address] [place] [address], [place] [address] May, [facility] [address] [id number] [address] [place] [address], [place] [address] May, [facility] [address] [id number] [address] [place] [address], [place] [address] May, [facility] [address] [id number] [address] [place] [address], [place] [address] May, [facility] [address] [id number] [address] [place] [address], [place] [address] May, [facility] [address] [id number] [facility] [place] [address] May, 2013 [facility] [address] [id number] [facility] [place] [address] May, [facility] [address] [id number] [facility] [place] [address] May, [facility] [address] [id number] [address] [place] [address], [place] [address] May, [facility] [address] [id number] [address] [place] [address], [place] [address] May, [facility] [address] [id number] [address] [place] [address], [place] [address] May, [facility] [address] [id number] [address] [place] [address], [place] [address] Apr, [facility] [address] [id number] [address] [place] [address], [place] [address] Apr, [facility] [address] [id number] [address] [place] [address], [place] [address] Apr, [facility] [address] [id number] [address] [place] [address], [place] [address] Apr, [facility] [address] [id number] [address] [place] [address], [place] [address] Apr, [facility] [address] [id number] [address] [place] [address], [place] [address] Apr, [facility] [address] [id number] [address] [place] [address], [place] [address] Apr, [facility] [address] [id number] [address] [place] [address], [place] [address] Apr, [facility] [address] [id number] [address] [place] [address], [place] [address] Apr, [facility] [address] [id number] [address] [place] [address], [place] [address] March, [facility] [address] [id number] [address] [place] [address], [place] [address] March, [facility] [address] [id number] [address] [place] [address], [place] [address] March, [facility] [address] [id number] [address] [place] [address], [place] [address] March, [facility] [address] [id number] [address] [place] [address], [place] [address] March, [facility] [address] [id number] [address] [place] [address], [place] [address] March, [facility] [address] [id number] [address] [place] [address], [place] [address] March, [facility] [address] [id number] [address] [place] [address], [place] [address] March, [facility] [address] [id number] [address] [place] [address], [place] [address] March, [facility] [address] [id number] [address] [place] [address], [place] [address] March, [facility] [address] [id number] [address] [place] [address], [place] [address] March, [facility] [address] [id number] [address] [place] [address], [place] [address] March, [facility] [address] [id number] [address] [place] [address], [place] [address] March, [facility] [address] [id number] [address] [place] [address], [place] [address] March, [facility] [address] [id number] [address] [place] [address], [place] [address] March, [facility] [address] [id number] [address] [place] [address], [place] [address] March, [facility] [address] [id number] [address] [place] [address], [place] [address] March, [facility] [address] [id number] [address] [place] [address], [place] [address] March, [facility] [address] [id number] [address] [place] [address], [place] [address] March, [facility] [address] [id number] [address] [place] [address], [place] [address] March, [facility] [address] [id number] [address] [place] [address], [place] [address] Feb, [facility] [address] [id number] [address] [place] [address], [place] [address] Feb, [facility] [address] [id number] [address] [place] [address], [place] [address] Feb, [facility] [address] [id number] [address] [place] [address], [place] [address] Feb, [facility] [address] [id number] [address] [place] [address], [place] [address] Feb, [facility] [address] [id number] [address] [place] [address], [place] [address] Feb, [facility] [address] [id number] [address] [place] [address], [place] [address] Feb, [facility] [address] [id number] [address] [place] [address], [place] [address] Feb, [facility] [address] [id number] [address] [place] [address], [place] [address] Jan, [facility] [address] [id number] [address] [place] [address], [place] [address] Jan, [facility] [address] [id number] [address] [place] [address], [place] [address] Jan, [facility] [address] [id number] [address] [place] [address], [place] [address] 24 Jan, 2014 [facility] [address] [id number] [address] [place] [address], [place] [address] 13 Jan, 2014 [facility] [address] [id number] [address] [place] [address], [place] [address] 13 Jan, 2014 [facility] [address] [id number] [address] [place] [address], [place] [address] Jan, [facility] [address] [id number] [address] [place] [address], [place] [address] Jan, [facility] [address] [id number] [address] [place] [address], [place] [address] Jan, [facility] [address] [id number] [address] [place] [address], [place] [address] Jan, [facility] [address] [id number] [address] [place] [address], [place] [address] 27 Dec, 2013 [facility] [address] [id number] [address] [place] [address], [place] [address] 26 Dec, 2013 [facility] [address] [id number] [address] [place] [address], [place] [address] 26 Dec, 2013 [facility] [address] [id number] [address] [place] [address], [place] [address] 2013 [facility] [address] [id number] [address] [place] [address] [address] 2013 [facility] [address] [id number] [address] [place] [address], [place] [address] 13 Dec, 2013 [facility] [address] [id number] [address] [place] [address], [place] [address] Dec, [facility] [address] [id number] [address] [place] [address], [place] [address] Dec, [facility] [address] [id number] [address] [place] [address], [place] [address] Nov, [facility] [address] [id number] [address] [place] [address], [place] [address] Nov, [facility] [address] [id number] [address] [place] [address], [place] [address] Nov, [facility] [address] [id number] [address] [place] [address], [place] [address] Nov, [facility] [address] [id number] [address] [place] [address], [place] [address] Nov, [facility] [address] [id number] [address] [place] [address], [place] [address] Nov, [facility] [address] [id number] [address] [place] [address], [place] [address] Nov, [facility] [address] [id number] [address] [place] [address], [place] [address] Nov, [facility] [address] [id number] [address] [place] [address], [place] [address] Nov, [facility] [address] [id number] [address] [place] [address], [place] [address] Nov, [facility] [address] [id number] [address] [place] [address], [place] [address] Nov, [facility] [address] [id number] [address] [place] [address], [place] [address] Nov, [facility] [address] [id number] [address] [place] [address], [place] [address] Nov, [facility] [address] [id number] [address] [place] [address], [place] [address] Oct, [facility] [address] [id number] [address] [place] [address], [place] [address] Oct, [facility] [address] [id number] [address] [place] [address], [place] [address] Oct, [facility] [address] [id number] [address] [place] [address], [place] [address] Oct, [facility] [address] [id number] [address] [place] [address], [place] [address] Oct, [facility] [address] [id number] [address] [place] [address], [place] [address] Oct, [facility] [address] [id number] [address] [place] [address], [place] [address] Oct, [facility] [address] [id number] [address] [place] [address], [place] [address] Oct, [facility] [address] [id number] [address] [place] [address], [place] [address] Oct, [facility] [address] [id number] [address] [place] [address], [place] [address] Oct, [facility] [address] [id number] [address] [place] [address], [place] [address] Oct, [facility] [address] [id number] [address] [place] [address], [place] [address] Oct, [facility] [address] [id number] [address] [place] [address], [place] [address] Oct, [facility] [address] [id number] [address] [place] [address], [place] [address] Oct, [facility] [address] [id number] [address] [place] [address], [place] [address] 14 Sep, 2013 [facility] [address] [id number] [address] [place] [address] 14 Sep, 2013 [facility] [address] [id number] [address] [place] [address], [place] [address] 05 Sep, 2013 [facility] [address] [id number] [address] [place] [address], [place] [address] 05 Sep, 2013 [facility] [address] [id number] [address] [place] [address], [place] [address] Sep, [facility] [address] [id number] [address] [place] [address], [place] [address] Sep, [facility] [address] [id number] [address] [place] [address], [place] [address] Sep, [facility] [address] [id number] [address] [place] [address], [place] [address] Sep, [facility] [address] [id number] [address] [place] [address], [place] [address] Sep, [facility] [address] [id number] [address] [place] [address], [place] [address] Sep, [facility] [address] [id number] [address] [place] [address], [place] [address] Aug, [facility] [address] [id number] [address] [place] [address], [place] [address] Aug, [facility] [address] [id number] [address] [place] [address], [place] [address] Aug, [facility] [address] [id number] [address] [place] [address], [place] [address] Aug, [facility] [address] [id number] [address] [place] [address], [place] [address] Aug, [facility] [address] [id number] [address] [place] [address], [place] [address] Aug, [facility] [address] [id number] [address] [place] [address], [place] [address] Aug, [facility] [address] [id number] [address] [place] [address], [place] [address] Aug, [facility] [address] [id number] [address] [place] [address], [place] [address] Aug, [facility] [address] [id number] [address] [place] [address], [place] [address] Aug, [facility] [address] [id number] [address] [place] [address], [place] [address] 18 Aug, 2013 [facility] [address] [id number] [address] [place] [address], [place] [address] 18 Aug, 2013 [facility] [address] [id number] [address] [place] [address], [place] [address] 18 Aug, 2013 [facility] [address] [id number] [address] [place] [address], [place] [address] 18 Aug, 2013 [facility] [address] [id number] [address] [place] [address], [place] [address] 17 Aug, 2013 [facility] [address] [id number] [address] [place] [address], [place] [address] 14 Aug, 2013 [facility] [address] [id number] [address] [place] [address], [place] [address] 14 Aug, 2013 [facility] [address] [id number] [address] [place] [address], [place] [address] Aug, [facility] [address] [id number] [address] [place] [address], [place] [address] 20 Jul, 2013 [facility] [address] [id number] [address] [place] [address], [place] [address] 19 Jul, 2013 [facility] [address] [id number] [address] [place] [address], [place] [address] 18 Jul, 2013 [facility] [address] [id number] [address] [place] [address], [place] [address] 11 Jul, 2013 [facility] [address] [id number] [address] [place] [address] 11 Jul, 2013 [facility] [address] [id number] [address] [place] [address], [place] [address] Jun, [facility] [address] [id number] [address] [place] [address], [place] [address] Jun, [facility] [address] [id number] [address] [place] [address], [place] [address] Jun, [facility] [address] [id number] [address] [place] [address] Jun, [facility] [address] [id number] [address] [place] [address], [place] [address] Jun, [facility] [address] [id number] [address] [place] [address], [place] [address] Jun, [facility] [address] [id number] [address] [place] [address], [place] [address] Jun, [facility] [address] [id number] [address] [place] [address], [place] [address] Jun, [facility] [address] [id number] [address] [place] [address], [place] [address] Jun, [facility] [address] [id number] [address] [place] [address], [place] [address] Jun, [facility] [address] [id number] [address] [place] [address], [place] [address] May, [facility] [address] [id number] [address] [place] [address], [place] [address] May, [facility] [address] [id number] [address] [place] [address], [place] [address] May, [facility] [address] [id number] [address] [place] [address], [place] [address] May, [facility] [address] [id number] [address] [place] [address], [place] [address] May, [facility] [address] [id number] [address] [place] [address], [place] [address] May, [facility] [address] [id number] [address] [place] [address], [place] [address] May, [facility] [address] [id number] [address] [place] [address], [place] [address] May, [facility] [address] [id number] [address] [place] [address], [place] [address] May, [facility] [address] [id number] [facility] [place] [address] Apr, [facility] [address] [id number] [address] [place] [address], [place] [address] Apr, [facility] [address] [id number] [address] [place] [address], [place] [address] Apr, [facility] [address] [id number] [address] [place] [address], [place] [address] Apr, [facility] [address] [id number] [address] [place] [address], [place] [address] Apr, [facility] [address] [id number] [address] [place] [address], [place] [address] Apr, [facility] [address] [id number] [address] [place] [address], [place] [address] Apr, [facility] [address] [id number] [address] [place] [address], [place] [address] March, [facility] [address] [id number] [address] [place] [address], [place] [address] Feb, [facility] [address] [id number] [address] [place] [address], [place] [address] Feb, [facility] [address] [id number] [address] [place] [address], [place] [address] Feb, [facility] [address] [id number] [address] [place] [address], [place] [address] 28 Jan, 2013 [facility] [address] [id number] [address] [place] [address], [place] [address] Jan, [facility] [address] [id number] [address] [place] [address], [place] [address] 19 Jan, 2013 [facility] [address] [id number] [address] [place] [address], [place] [address] 14 Jan, 2013 [facility] [address] [id number] [address] [place] [address], [place] [address] Jan, [facility] [address] [id number] [facility] [place] [address] 08 Jan, 2013 [facility] [address] [id number] [address] [place] [address], [place] [address] 07 Jan, 2013 [facility] [address] [id number] [address] [place] [address], [place] [address] 04 Jan, 2013 [facility] [address] [id number] [address] [place] [address], [place] [address] 28 Dec, 2012 [facility] [address] [id number] [address] [place] [address], [place] [address] 25 Dec, 2012 [facility] [address] [id number] [address] [place] [address], [place] [address] 13 Dec, 2012 [facility] [address] [id number] [address] [place] [address], [place] [address] Dec, [facility] [address] [id number] [address] [place] [address], [place] [address] 07 Dec, 2012 [facility] [address] [id number] [address] [place] [address], [place] [address] 06 Dec, 2012 [facility] [address] [id number] [address] [place] [address], [place] [address] 05 Dec, 2012 [facility] [address] [id number] [address] [place] [address], [place] [address] Nov, [facility] [address] [id number] [address] [place] [address], [place] [address] 24 Nov, 2012 [facility] [address] [id number] [address] [place] [address], [place] [address] 18 Nov, 2012 [facility] [address] [id number] [address] [place] [address], [place] [address] 15 Nov, 2012 [facility] [address] [id number] [address] [place] [address], [place] [address] 10 Nov, 2012 [facility] [address] [id number] [address] [place] [address], [place] [address] Nov, [facility] [address] [id number] [address] [place] [address], [place] [address] Nov, [facility] [address] [id number] [address] [place] [address], [place] [address] Oct, [facility] [address] [id number] [address] [place] [address], [place] [address] Oct, [facility] [address] [id number] [address] [place] [address], [place] [address] Oct, [facility] [address] [id number] [address] [place] [address], [place] [address] Oct, [facility] [address] [id number] [address] [place] [address], [place] [address] Oct, [facility] [address] [id number] [address] [place] [address], [place] [address] Oct, [facility] [address] [id number] [address] [place] [address], [place] [address] Oct, [facility] [address] [id number] [address] [place] [address], [place] [address] Oct, [facility] [address] [id number] [address] [place] [address], [place] [address] Oct, [facility] [address] [id number] [address] [place] [address], [place] [address] Oct, [facility] [address] [id number] [address] [place] [address], [place] [address] Oct, [facility] [address] [id number] [address] [place] [address], [place] [address] Oct, [facility] [address] [id number] [address] [place] [address], [place] [address] Sep, [facility] [address] [id number] [address] [place] [address], [place] [address] Sep, [facility] [address] [id number] [address] [place] [address], [place] [address] Sep, [facility] [address] [id number] [address] [place] [address], [place] [address] Sep, [facility] [address] [id number] [address] [place] [address], [place] [address] Sep, [facility] [address] [id number] [address] [place] [address], [place] [address] Sep, [facility] [address] [id number] [address] [place] [address], [place] [address] Sep, [facility] [address] [id number] [address] [place] [address], [place] [address] Sep, [facility] [address] [id number] [address] [place] [address], [place] [address] Sep, [facility] [address] [id number] [address] [place] [address], [place] [address] Sep, [facility] [address] [id number] [address] [place] [address], [place] [address] Sep, [facility] [address] [id number] [address] [place] [address], [place] [address] Aug, [facility] [address] [id number] [address] [place] [address], [place] [address] Aug, [facility] [address] [id number] [address] [place] [address] Aug, [facility] [address] [id number] [address] [place] [address], [place] [address] Aug, [facility] [address] [id number] [address] [place] [address], [place] [address] Aug, [facility] [address] [id number] [address] [place] [address], [place] [address] Aug, [facility] [address] [id number] [address] [place] [address] [place] [address] Aug, [facility] [address] [id number] [address] [place] [address], [place] [address] Aug, [facility] [address] [id number] [address] [place] [address], [place] [address] Aug, [facility] [address] [id number] [address] [place] [address], [place] [address] Aug, [facility] [address] [id number] [address] [place] [address], [place] [address] 22 Jul, 2012 [facility] [address] [id number] [address] [place] [address], [place] [address] 20 Jul, 2012 [facility] [address] [id number] [address] [place] [address], [place] [address] Jul, [facility] [address] [id number] [address] [place] [address], [place] [address] Jul, [facility] [address] [id number] [address] [place] [address], [place] [address] Jun, [facility] [address] [id number] [address] [place] [address], [place] [address] Jun, [facility] [address] [id number] [address] [place] [address], [place] [address] Jun, [facility] [address] [id number] [address] [place] [address], [place] [address] Jun, [facility] [address] [id number] [address] [place] [address], [place] [address] Jun, [facility] [address] [id number] [address] [place] [address], [place] [address] Jun, [facility] [address] [id number] [address] [place] [address], [place] [address] Jun, [facility] [address] [id number] [address] [place] [address], [place] [address] May, [facility] [address] [id number] [address] [place] [address], [place] [address] May, [facility] [address] [id number] [address] [place] [address], [place] [address] May, [facility] [address] [id number] [address] [place] [address], [place] [address] May, [facility] [address] [id number] [address] [place] [address], [place] [address] May, [facility] [address] [id number] [address] [place] [address], [place] [address] Apr, [facility] [address] [id number] [address] [place] [address], [place] [address] Apr, [facility] [address] [id number] [address] [place] [address], [place] [address] Apr, [facility] [address] [id number] [address] [place] [address], [place] [address] Apr, [facility] [address] [id number] [address] [place] [address], [place] [address] Apr, [facility] [address] [id number] [address] [place] [address], [place] [address] March, [facility] [address] [id number] [address] [place] [address], [place] [address] March, [facility] [address] [id number] [address] [place] [address], [place] [address] March, [facility] [address] [id number] [address] [place] [address], [place] [address] March, [facility] [address] [id number] [address] [place] [address], [place] [address] March, [facility] [address] [id number] [address] [place] [address], [place] [address] March, [facility] [address] [id number] [address] [place] [address], [place] [address] March, [facility] [address] [id number] [address] [place] [address], [place] [address] March, [facility] [address] [id number] [address] [place] [address], [place] [address] March, [facility] [address] [id number] [address] [place] [address], [place] [address] March, [facility] [address] [id number] [address] [place] [address], [place] [address] Feb, [facility] [address] [id number] [address] [place] [address], [place] [address] Feb, [facility] [address] [id number] [address] [place] [address], [place] [address] Feb, [facility] [address] [id number] [address] [place] [address], [place] [address] Feb, [facility] [address] [id number] [address] [place] [address], [place] [address] Feb, [facility] [address] [id number] [address] [place] [address], [place] [address] Feb, [facility] [address] [id number] [address] [place] [address], [place] [address] Feb, [facility] [address] [id number] [address] [place] [address], [place] [address] Feb, [facility] [address] [id number] [address] [place] [address], [place] [address] Feb, [facility] [address] [id number] [address] [place] [address], [place] [address] Jan, [facility] [address] [id number] [address] [place] [address], [place] [address] Jan, [facility] [address] [id number] [address] [place] [address], [place] [address] Jan, [facility] [address] [id number] [address] [place] [address], [place] [address] Jan, [facility] [address] [id number] [address] [place] [address], [place] [address] Dec, [facility] [address] [id number] [address] [place] [address], [place] [address] Dec, [facility] [address] [id number] [address] [place] [address], [place] [address] Nov, [facility] [address] [id number] [address] [place] [address], [place] [address] Nov, [facility] [address] [id number] [address] [place] [address], [place] [address] Nov, [facility] [address] [id number] [address] [place] [address], [place] [address] Nov, [facility] [address] [id number] [address] [place] [address], [place] [address] Nov, [facility] [address] [id number] [address] [place] [address], [place] [address] Oct, [facility] [address] [id number] [address] [place] [address], [place] [address] Oct, [facility] [address] [id number] [address] [place] [address], [place] [address] Oct, [facility] [address] [id number] [address] [place] [address], [place] [address] Oct, [facility] [address] [id number] [address] [place] [address], [place] [address] Oct, [facility] [address] [id number] [address] [place] [address], [place] [address] Oct, [facility] [address] [id number] [address] [place] [address], [place] [address] Oct, [facility] [facility] [address] [id number] [address] [place] [address], [place] [id number] Oct, [facility] [address] [facility] [id number] [address] [place] [address] Sep, IMMUNIZATIONS No Known Immunizations SOCIAL HISTORY [...] fever, discharged 11/27/2017 11/26/2017 Hospitalization History [facility]- Went Unrepsonsive, Hit head 2017 Hospitalization History [facility]- Back Pain 8
--- OUTSIDE RECORDS SUMMARY | 2020-06-18 15:13 | XMS REPORT ---
Author Author Sanjuanita JOHNSON [facility] Address [address] [place] [address] Care Team Providers Care Rn Urology Name Role Phone ELIZABETH SHARIF Unavailable PROBLEMS Type Condition ICD9-CM Code FSR04-HP Code Onset Dates Condition S tatus SNOMED Code Problem Coronary artery disease I25.10 Active 93198862 Problem Hypertension I10 Active 5753176 3 Problem Other chronic pain G89.29 Active 8 1690692 Problem Hyperlipidemia E78.5 Active 61202 004 Problem Type 2 diabetes mellitus wit hout complication, without long-term current use of insulin E11.9 Active 147697037 Problem Low back pain M54.5 Active 774165 009 Problem Pharyngeal dysphagia R13.13 Active 13255504153280 Problem Anxiety F41.9 Active 27040809 Problem Peripheral vascular disease I73.9 Ac tive 162560522 Problem Suprapubic catheter Z93.59 Active 360340556 Problem Reactive depression F32.9 Active 58857593 Problem Neurogenic bladder N31.9 Active 3 82651613 Problem Ventral hernia without obstruction or gangrene K43 .9 Active 163245773 Problem Insomnia G47.00 Active 023095961 Problem Paroxysmal atrial fibrillation I48.0 Active 321253030 Problem Postmenopausal atrophic vaginitis N95.2 Active 81969992 Problem Encounter for suprapubic catheter care Z43.5 Active [id number] ALLERGIES No Information ENCOUNTERS Encounter Location Date Diagnosis [facility] [address] [facility] [id number] [address] [place] [phone] Jul, [facility] [address] [facility] [id number] [address] [place] [address] Jun, [facility] [address] [facility] [id number] [address] [place] [phone] Jun, [facility] [address] [facility] [id number] [address] [place] [address] Jun, [place] [address] [id number] [address] [place] [address] Jun, Strain of right shoulder, scherer bsequent encounter S46.911D [place] [address] [id number] [address] [place] [address] Jun, Strain of right shoulder, scherer bsequent encounter S46.911D [place] [address] [id number] [address] [place] [address] Jun, Anxiety F41.9 Via [facility] [address] [place] [id number] Jun, Neurogenic bladder N31.9 and Anxiety F41 .9 Via [facility] [address] [place] [id number] May, Anxiety F41.9 [place] [address] [id number] [address] [place] [address] May, Dysuria R30.0 [place] [address] [id number] [address] [place] [address] May, Strain of right shoulder, scherer bsequent encounter S46.911D and Anxiety F41.9 [place] [address] [id number] [address] [place] [address] Apr, Via [facility] [address] [place] [id number] Apr, Strain of right shoulder, subsequent enc ounter S46.911D [place] [address] [id number] [address] [place] [address] Apr, Strain of right shoulder, scherer bsequent encounter S46.911D and Anxiety F41.9 Via [employer] [address] [place] [id number] Apr, Type 2 diabetes mellitus without complic ation, without long-term current use of insulin E11.9 and Neurogenic bladder N31.9 Via [facility] [address] [place] [id number] 11 Apr, 2019 Strain of right shoulder, subsequent enc ounter S46.911D ; History of GI bleed Z87.19 ; Neurogenic bladder N31.9 and Reactive depression F32.9 [facility] [address] [id number] [address] [place] [address] 10 Apr, 2019 Acute pain of left shoulder M25.512 [facility] [address] [id number] [address] [place] [address] Apr, [facility] [address] [id number] [address] [place] [address] Apr, Anxiety F41.9 and 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 Via [facility] [address] [place] [id number] March, Gastrointestinal hemorrhage associated w ith acute gastritis K29.01 [facility] [address] [id number] [address] [place] [address] March, Via [facility] [address] [place] [id number] March, Bronchitis J40 [facility] [address] [id number] [address] [place] [address] March, Cough R05 [facility] [address] [id number] [address] [place] [address] March, Other chronic pain G89.29 [facility] [address] [id number] [address] [place] [address] March, Anxiety F41.9 [facility] [address] [id number] [address] [place] [address] March, [facility] [address] [id number] [address] [place] [address] Feb, Other chronic pain G89.29 [facility] [address] [id number] [address] [place] [address] Feb, Anxiety F41.9 [facility] [address] [id number] [address] [place] [address] Feb, Other chronic pain G89.29 Via [facility] [address] [place] [id number] Feb, Neurogenic bladder N31.9 and Suprapubic catheter Z93.59 [facility] [address] [id number] [address] [place] [address] Jan, Anxiety F41.9 [facility] [address] [id number] [address] [place] [address] Dec, Anxiety F41.9 [facility] [address] [id number] [address] [place] [address] Dec, Other chronic pain G89.29 an d Anxiety F41.9 [facility] [address] [id number] [address] [place] [address] Dec, Via [facility] [employer] [address] [place] [id number] Dec, Neurogenic bladder N31.9 and Suprapubic catheter Z93.59 [facility] [address] [id number] [address] [place] [address] Nov, Other chronic pain G89.29 an d Anxiety F41.9 [facility] [address] [id number] [address] [place] [address] Nov, Via [facility] [address] [place] [id number] Nov, Suprapubic catheter Z93.59 [facility] [address] [id number] [address] [place] [address] Oct, Other chronic pain G89.29 an d Anxiety F41.9 [facility] [address] [id number] [address] [place] [address] Oct, [facility] [address] [id number] [address] [place] [address] Oct, Suprapubic catheter Z93.59 [facility] [address] [id number] [address] [place] [address] Oct, Via [employer] [address] [place] [id number] Oct, [facility] [address] [id number] [address] [place] [address] Oct, Anxiety F41.9 [facility] [address] [id number] [address] [place] [address] Oct, Anxiety F41.9 Via [facility] [address] [place] [id number] Oct, Other chronic pain G89.29 [facility] [address] [id number] [address] [place] [address] Sep, Other chronic pain G89.29 Via [facility] [employer] [address] [place] [id number] Sep, Suprapubic catheter Z93.59 and Cervicalg ia M54.2 [facility] [address] [id number] [address] [place] [address] Sep, [facility] [address] [id number] [address] [place] [address] Sep, [facility] [address] [id number] [address] [place] [address] Sep, Via [facility] [facility] [address] [place] [id number] Aug, Cystitis N30.90 [facility] [address] [id number] [address] [place] [address] Aug, [facility] [address] [id number] [address] [place] [address] Aug, Other chronic pain G89.29 [facility] [address] [id number] [address] [place] [address] Aug, Via [employer] [address] [place] [id number] Aug, Encounter for suprapubic catheter care Z 43.5 [facility] [address] [id number] [address] [place] [address] Jul, Via [facility] [address] [place] [id number] Jul, [facility] [address] [id number] [address] [place] [address] Jul, Other chronic pain G89.29 [facility] [address] [id number] [address] [place] [address] Jul, [facility] [address] [id number] [address] [place] [address] Jul, [facility] [address] [place] [id number] Jun, Postmenopausal atrophic vaginitis N95.2 [facility] [address] [id number] [address] [place] [address] Jun, Other chronic pain G89.29 [facility] [address] [id number] [address] [place] [address] Jun, Via [facility] [address] [place] [id number] May, Anxiety F41.9 ; Type 2 diabetes mellitus without complication, without long-term current use of insulin E11.9 ; Hypertension I10 ; Low back pain M54.5 ; Paroxysmal atrial fibrillation I48.0 and 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 [facility] [address] [id number] [address] [place] [address] May, Other chronic pain G89.29 Via [facility] [address] [place] [id number] May, Low back pain M54.5 [facility] [address] [id number] [address] [place] [address] May, [facility] [address] [id number] [address] [place] [address] Apr, Other chronic pain G89.29 [facility] [address] [id number] [address] [place] [address] Apr, [facility] [address] [id number] [address] [place] [address] Apr, Via [facility] [address] [place] [id number] Apr, Closed compression fracture of L3 lumbar vertebra with routine healing, subsequent encounter S32.030D [facility] [address] [place] [id number] Apr, Low back pain M54.5 [facility] [address] [place] [id number] Apr, Coccydynia M53.3 [facility] [address] [id number] [address] [place] [address] March, [facility] [address] [id number] [address] [place] [address] March, Other chronic pain G89.29 [facility] [address] [id number] [address] [place] [address] March, [facility] [address] [id number] [address] [place] [address] March, [facility] [address] [id number] [address] [place] [address] Feb, [facility] [address] [id number] [address] [place] [address] Feb, Other chronic pain G89.29 Via [facility] [address] [place] [id number] Feb, Other chronic pain G89.29 and Anxiety F4 1.9 [facility] [address] [id number] [address] [place] [address] Feb, [facility] [address] [id number] [address] [place] [address] Jan, [facility] [address] [facility] [id number] [address] [place] [address] Jan, [facility] [address] [facility] [id number] [address] [place] [address] Jan, [facility] [address] [facility] [id number] [address] [place] [address] Jan, [facility] [address] [facility] [id number] [address] [place] [address] Dec, Via [facility] [address] [place] [id number] Dec, Peripheral vascular disease I73.9 ; 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 ; Other chronic pain G89.29 ; Anxiety F41.9 ; Reactive depression F32.9 ; Insomnia G47.00 and Type 2 diabetes mellitus without complication, without long-term current use of insulin E11.9 [facility] [id number] [place] [address] Nov, [facility] [address] [id number] [id number] Nov, Anxiety F41.9 [place] [address] [facility] [id number] [address] [place] [address] Nov, [place] [address] [id number] [place] [id number] Nov, Anxiety F41.9 Via [facility] [address] [place] [id number] Nov, Status post surgery Z98.890 ; Confused R 41.0 ; Anxiety F41.9 and Other chronic pain G89.29 [facility] [address] [id number] [id number] Nov, Other chronic pain G89.29 [facility] [address] [facility] [id number] [address] [place] [address] Oct, [place] [address] [id number] [place] [id number] Oct, Other chronic pain G89.29 [facility] [address] [id number] [address] [place] [address], [place] [address] Oct, Anxiety F41.9 [facility] [address] [id number] [place] [id number] Sep, Other chronic pain G89.29 [facility] [address] [id number] [place] [id number] Sep, [facility] [address] [place] [id number] Aug, Dysuria R30.0 and Anxiety F41.9 [facility] [address] [id number] [address] [place] [address], [place] [address] Aug, [facility] [address] [id number] [place] [id number] Aug, Other chronic pain G89.29 [facility] [address] [id number] [address] [place] [address] Jul, Other chronic pain G89.29 [facility] [address] [id number] [place] [id number] Jun, [facility] [address] [id number] [place] [id number] Jun, Other chronic pain G89.29 [facility] [address] [id number] [address] [place] [address] Jun, [facility] [address] [id number] [address] [place] [address] May, Other chronic pain G89.29 [facility] [address] [id number] [address] [place] [address] Apr, Other chronic pain G89.29 [facility] [address] [place] [id number] Apr, Reactive depression F32.9 and Pharyngeal dysphagia R13.13 [facility] [address] [id number] [address] [place] [address] Apr, Urinary tract infection with out hematuria, site unspecified N39.0 [facility] [address] [id number] [address] [place] [address] March, Other chronic pain G89.29 [facility] [address] [id number] [address] [place] [address] Feb, Other chronic pain G89.29 [facility] [address] [id number] [address] [place] [address] Feb, [facility] [id number] [place] [id number] Feb, [facility] [address] [place] [id number] Feb, Dysuria R30.0 and Ventral hernia without obstruction or gangrene K43.9 [facility] [address] [id number] [address] [place] [address] Jan, Other chronic pain G89.29 [facility] [address] [id number] [place] [id number] Dec, Other chronic pain G89.29 [facility] [address] [facility] [id number] [address] [place] [address] Nov, Other chronic pain G89.29 [facility] [employer] [address] [place] [id number] Nov, Lymphadenitis I88.9 [facility] [address] [id number] [address] [place] [address] Nov, Other chronic pain G89.29 [facility] [address] [id number] [address] [place] [address] Nov, [facility] [address] [id number] [place] [id number] Nov, Other chronic pain G89.29 [facility] [employer] [address] [place] [id number] Oct, Low back pain M54.5 ; Hypertension I10 a nd Type 2 diabetes mellitus without complication, without long-term current use of insulin E11.9 [facility] [address] [id number] [address] [place] [address] Oct, [facility] [address] [id number] [address] [place] [address] Oct, [facility] [address] [id number] [address] [place] [address] Oct, [facility] [address] [id number] [address] [place] [address] Oct, [facility] [address] [id number] [address] [place] [address] Sep, [facility] [address] [id number] [address] [place] [address] Sep, [facility] [address] [id number] [address] [place] [address] Aug, Other chronic pain G89.29 [facility] [address] [id number] [address] [place] [address] Jul, [facility] [address] [id number] [address] [place] [address] Jul, [facility] [address] [id number] [address] [place] [address] Jul, [facility] [address] [id number] [address] [place] [address] Jun, [facility] [address] [id number] [address] [place] [address] Jun, Via [employer] [address] [place] [id number] Jun, Low back pain M54.5 ; Other chronic pain G89.29 and Coronary artery disease I25.10 [facility] [address] [id number] [address] [place] [address] 08 Jun, 2016 [facility] [address] [id number] [address] [place] [address] May, [facility] [address] [id number] [address] [place] [address] May, [facility] [address] [id number] [address] [place] [address] May, Other chronic pain G89.29 [facility] [address] [id number] [address] [place] [address] May, [facility] [address] [id number] [address] [place] [address] Apr, [facility] [address] [id number] [address] [place] [address] Apr, Acute cystitis without hemat uria N30.00 [facility] [address] [id number] [address] [place] [address] 16 Apr, 2016 Acute cystitis without hemat uria N30.00 ; Coronary artery disease I25.10 ; Low back pain M54.5 and Other chronic pain G89.29 [facility] [address] [id number] [address] [place] [address] Apr, Other chronic pain G89.29 [facility] [address] [id number] [address] [place] [address] March, Other chronic pain G89.29 [facility] [address] [id number] [address] [place] [address] 18 Feb, 2016 [facility] [address] [id number] [address] [place] [address] Feb, Arthritis M19.90 [facility] [address] [id number] [address] [place] [address] Feb, [facility] [address] [id number] [address] [place] [address] Jan, [facility] [address] [id number] [address] [place] [address] Jan, [facility] [address] [id number] [address] [place] [address] Jan, Other chronic pain G89.29 [facility] [address] [id number] [address] [place] [address] Jan, Hypertension I10 ; Coronary artery disease I25.10 and Insomnia G47.00 [facility] [address] [id number] [address] [place] [address] Jan, [facility] [address] [id number] [address] [place] [address] Dec, Right hip pain M25.551 [facility] [address] [id number] [address] [place] [address] Dec, [facility] [address] [id number] [address] [place] [address] Dec, [facility] [address] [id number] [address] [place] [address] Dec, [facility] [address] [facility] [id number] [address] [place] [address] Dec, Other chronic pain G89.29 [facility] [address] [id number] [address] [place] [address] Dec, [facility] [address] [id number] [address] [place] [address] Nov, [facility] [address] [id number] [address] [place] [address] Nov, Other chronic pain G89.29 [facility] [address] [id number] [address] [place] [address] Nov, Right hip pain M25.551 and C oronary artery disease I25.10 [facility] [address] [id number] [address] [place] [address] Nov, Other chronic pain G89.29 [facility] [address] [id number] [address] [place] [address] Oct, [facility] [address] [id number] [address] [place] [address] Oct, [facility] [address] [id number] [address] [place] [id number] Sep, [facility] [address] [id number] [address] [place] [phone] Sep, [facility] [address] [id number] [address] [place] [phone] Aug, [facility] [address] [id number] [address] [place] [phone] Aug, Hypertension I10 ; Coronary artery disease I25.10 and Arthritis M19.90 [facility] [address] [id number] [address] [place] [id number] Jun, [facility] [address] [facility] [id number] [address] [place] [id number] Jun, Essential hypertension, jayson gn 401.1 ; Other chronic pain 338.29 and Chronic airway obstruction, not elsewhere classified 496 [facility] [address] [id number] [address] [place] [phone] Jun, [facility] [address] [id number] [address] [place] [phone] Jun, [facility] [address] [id number] [address] [place] [id number] Jun, [facility] [address] [id number] [address] [place] [phone] May, [facility] [address] [id number] [address] [place] [phone] May, [facility] [address] [id number] [address] [place] [address], [place] [id number] Apr, [facility] [address] [id number] [address] [place], [place] [address], [place] [address] Apr, [facility] [address] [id number] [address] [place] [address], [place] [address] Apr, [facility] [address] [id number] [address] [place] [address] March, [facility] [address] [id number] [address] [place] [address], [place] [address] March, [facility] [address] [id number] [address] [place] [address], [place] [address] March, [facility] [address] [id number] [address] [place] [address], [place] [address] March, [facility] [address] [id number] [address] [place] [address], [place] [id number] March, [facility] [address] [facility] [address] [id number] [address] [place] [address], [place] [address] Feb, [facility] [address] [id number] [address] [place] [address], [place] [address] Feb, [facility] [address] [id number] [address] [place] [address], [place] [address] Feb, [facility] [address] [id number] [address] [place] [address], [place] [address] Feb, [facility] [address] [id number] [address] [place] [address], [place] [id number] Feb, [facility] [address] [id number] [address] [place] [address], [place] [address] Jan, [facility] [address] [id number] [address] [place] [address], [place] [id number] Jan, [facility] [address] [id number] [address] [place] [address], [place] [id number] Jan, [facility] [address] [id number] [address] [place] [address], [place] [address] Jan, [facility] [address] [id number] [address] [place] [address], [place] [address] Jan, [facility] [address] [id number] [address] [place] [address], [place] [address] Jan, [facility] [address] [id number] [address] [place] [address], [place] [address] Dec, [facility] [address] [id number] [address] [place] [address], [place] [address] Dec, 2014 [facility] [address] [id number] [address] [place] [address], [place] [address] Dec, 2014 [facility] [address] [id number] [address] [place] [address], [place] [address] Dec, 2014 [facility] [address] [id number] [address] [place] [address], [place] [address] Dec, [facility] [address] [id number] [address] [place] [address], [place] [address] Dec, [facility] [address] [id number] [address] [place] [address], [place] [address] Nov, [facility] [address] [id number] [address] [place] [address], [place] [address] Nov, [facility] [address] [id number] [address] [place] [address], [place] [address] Nov, [facility] [address] [id number] [address] [place] [address], [place] [address] Nov, [facility] [address] [id number] [address] [place] [address], [place] [address] Nov, [facility] [address] [id number] [address] [place] [address] Nov, [facility] [address] [id number] [address] [place] [address], [place] [address] Nov, [facility] [address] [id number] [address] [place] [address], [place] [address] Nov, [facility] [address] [id number] [address] [place] [address], [place] [address] Nov, [facility] [address] [id number] [address] [place] [address], [place] [address] Nov, [facility] [address] [id number] [address] [place] [address], [place] [address] Nov, [facility] [address] [id number] [address] [place] [address], [place] [address] Nov, [facility] [address] [id number] [address] [place] [address], [place] [address] Nov, [facility] [address] [id number] [address] [place] [address], [place] [address] Nov, [facility] [address] [id number] [address] [place] [address], [place] [address] Oct, [facility] [address] [id number] [address] [place] [address], [place] [address] Oct, [facility] [address] [id number] [address] [place] [address], [place] [address] Oct, [facility] [address] [id number] [address] [place] [address], [place] [address] 18 Oct, 2014 [facility] [address] [id number] [address] [place] [address], [place] [address] 18 Oct, 2014 [facility] [address] [id number] [address] [place] [address], [place] [address] 17 Oct, 2014 [facility] [address] [id number] [address] [place] [address], [place] [address] 17 Oct, 2014 [facility] [address] [id number] [address] [place] [address], [place] [address] Oct, [facility] [address] [id number] [address] [place] [address], [place] [address] Oct, [facility] [address] [id number] [address] [place] [address], [place] [address] Sep, [facility] [address] [id number] [address] [place] [address], [place] [address] Sep, [facility] [address] [id number] [address] [place] [address], [place] [address] Sep, [facility] [address] [id number] [address] [place] [address], [place] [address] Sep, [facility] [address] [id number] [address] [place] [address], [place] [address] Sep, [facility] [address] [id number] [address] [place] [address], [place] [address] Sep, [facility] [address] [id number] [address] [place] [address], [place] [address] Sep, [facility] [address] [id number] [address] [place] [address], [place] [address] Sep, [facility] [address] [id number] [address] [place] [address], [place] [address] Sep, [facility] [address] [id number] [address] [place] [address], [place] [address] Sep, [facility] [address] [id number] [address] [place] [address], [place] [address] Sep, [facility] [address] [id number] [address] [place] [address], [place] [address] Sep, [facility] [address] [id number] [address] [place] [address], [place] [address] Aug, [facility] [address] [id number] [address] [place] [address], [place] [address] 30 Aug, 2014 [facility] [address] [id number] [address] [place] [address], [place] [address] 29 Aug, 2014 [facility] [address] [id number] [address] [place] [address], [place] [address] 29 Aug, 2014 [facility] [address] [id number] [address] [place] [address], [place] [address] 28 Aug, 2014 [facility] [address] [id number] [address] [place] [address], [place] [address] 28 Aug, 2014 [facility] [address] [id number] [address] [place] [address], [place] [id number] 17 Aug, 2014 [facility] [address] [id number] [address] [place] [address], [place] [address] 17 Aug, 2013 [facility] [address] [id number] [address] [place] [address], [place] [address] 30 Jul, 2013 [facility] [address] [id number] [address] [place] [address], [place] [address] 30 Sep, 2013 [facility] [address] [id number] [address] [place] [address], [place] [address] 30 Sep, 2013 [facility] [address] [id number] [address] [place] [address], [place] [address] 30 Sep, 2013 [facility] [address] [id number] [address] [place] [address], [place] [id number] 25 Sep, 2013 [facility] [address] [id number] [address] [place] [address], [place] [address] 25 Sep, 2013 [facility] [address] [id number] [address] [place] [address], [place] [address] 15 Sep, 2013 [facility] [address] [id number] [address] [place] [address], [place] [address] 15 Sep, 2013 [facility] [address] [id number] [address] [place] [address], [place] [address] 11 Jul, 2013 [facility] [address] [id number] [facility] [place] [address] Jul, [facility] [address] [id number] [address] [place] [address], [place] [address] Jun, [facility] [address] [id number] [facility] [place] [address] Jun, [facility] [address] [id number] [address] [place] [address], [place] [address] Jun, [facility] [address] [id number] [address] [place] [address], [place] [address] Jun, [facility] [address] [id number] [address] [place] [address], [place] [address] Jun, [facility] [address] [id number] [address] [place] [address], [place] [address] Jun, [facility] [address] [id number] [address] [place] [address], [place] [address] Jun, [facility] [address] [id number] [address] [place] [address], [place] [address] Jun, [facility] [address] [id number] [address] [place] [address], [place] [address] Jun, [facility] [address] [id number] [address] [place] [address], [place] [address] Jun, [facility] [address] [id number] [address] [place] [address], [place] [address] Jun, [facility] [address] [id number] [address] [place] [address], [place] [address] Jun, [facility] [address] [id number] [address] [place] [address], [place] [address] Jun, [facility] [address] [id number] [address] [place] [address], [place] [address] Jun, [facility] [address] [id number] [address] [place] [address], [place] [address] Jun, [facility] [address] [id number] [facility] [place] [address] Jun, [facility] [address] [id number] [facility] [place] [address] Jun, [facility] [address] [id number] [facility] [place] [address] Jun, [facility] [address] [id number] [address] [place] [address], [place] [address] Jun, [facility] [address] [id number] [address] [place] [address], [place] [address] Jun, [facility] [address] [id number] [address] [place] [address], [place] [address] Jun, [facility] [address] [id number] [address] [place] [address], [place] [address] Jun, [facility] [address] [id number] [address] [place] [address], [place] [address] May, [facility] [address] [id number] [address] [place] [address], [place] [address] May, [facility] [address] [id number] [address] [place] [address], [place] [address] May, [facility] [address] [id number] [address] [place] [address], [place] [address] May, [facility] [address] [id number] [address] [place] [address], [place] [address] May, [facility] [address] [id number] [address] [place] [address], [place] [address] May, [facility] [address] [id number] [address] [place] [address], [place] [address] May, [facility] [address] [id number] [address] [place] [address], [place] [address] May, [facility] [address] [id number] [address] [place] [address], [place] [address] May, [facility] [address] [id number] [facility] [place] [address] May, [facility] [address] [id number] [address] [place] [address], [place] [address] May, [facility] [address] [id number] [address] [place] [address], [place] [address] May, [facility] [address] [id number] [address] [place] [address], [place] [address] May, [facility] [address] [id number] [address] [place] [address], [place] [address] Apr, [facility] [address] [id number] [address] [place] [address], [place] [address] Apr, [facility] [address] [id number] [address] [place] [address], [place] [address] Apr, [facility] [address] [id number] [address] [place] [address], [place] [address] Apr, [facility] [address] [id number] [address] [place] [address], [place] [address] Apr, [facility] [address] [id number] [address] [place] [address], [place] [address] Apr, [facility] [address] [id number] [address] [place] [address], [place] [address] Apr, [facility] [address] [id number] [address] [place] [address], [place] [address] Apr, [facility] [address] [id number] [address] [place] [address], [place] [address] Apr, [facility] [address] [id number] [address] [place] [address], [place] [address] March, [facility] [address] [id number] [address] [place] [address], [place] [address] March, [facility] [address] [id number] [facility] [place] [address] March, [facility] [address] [id number] [address] [place] [address], [place] [address] March, [facility] [address] [id number] [facility] [place] [address] March, [facility] [address] [id number] [address] [place] [address], [place] [address] March, [facility] [address] [id number] [address] [place] [address], [place] [address] March, [facility] [address] [id number] [address] [place] [address], [place] [address] March, [facility] [address] [id number] [address] [place] [address], [place] [address] March, [facility] [address] [id number] [address] [place] [address], [place] [address] March, [facility] [address] [id number] [address] [place] [address], [place] [address] March, [facility] [address] [id number] [address] [place] [address], [place] [address] March, [facility] [address] [id number] [address] [place] [address], [place] [address] March, [facility] [address] [id number] [address] [place] [address], [place] [address] March, [facility] [address] [id number] [address] [place] [address], [place] [address] March, [facility] [address] [id number] [address] [place] [address], [place] [id number] March, [facility] [address] [id number] [address] [place] [address], [place] [address] March, [facility] [address] [id number] [address] [place] [address], [place] [address] March, [facility] [address] [id number] [address] [place] [address], [place] [address] March, [facility] [address] [id number] [address] [place] [address], [place] [address] March, [facility] [address] [id number] [address] [place] [address], [place] [address] Feb, [facility] [address] [id number] [address] [place] [address], [place] [address] Feb, [facility] [address] [id number] [address] [place] [address], [place] [address] Feb, [facility] [address] [id number] [address] [place] [address], [place] [address] Feb, [facility] [address] [id number] [address] [place] [address], [place] [address] Feb, [facility] [address] [id number] [address] [place] [address], [place] [address] Feb, [facility] [address] [id number] [address] [place] [address], [place] [address] Feb, [facility] [address] [id number] [address] [place] [address], [place] [address] Feb, [facility] [address] [id number] [address] [place] [address], [place] [address] Jan, [facility] [address] [id number] [address] [place] [address], [place] [address] Jan, [facility] [address] [id number] [address] [place] [address], [place] [address] Jan, [facility] [address] [id number] [address] [place] [address], [place] [address] 24 Jan, 2014 [facility] [address] [id number] [address] [place] [address], [place] [id number] 13 Jan, 2014 [facility] [address] [id number] [address] [place] [address], [place] [id number] 13 Jan, 2014 [facility] [address] [id number] [address] [place] [address], [place] [id number] Jan, [facility] [address] [id number] [address] [place] [address], [place] [address] Jan, [facility] [address] [id number] [address] [place] [address], [place] [id number] Jan, [facility] [address] [id number] [address] [place] [address], [place] [id number] Jan, [facility] [address] [id number] [address] [place] [address], [place] [address] 27 Dec, 2013 [facility] [address] [id number] [address] [place] [address], [place] [id number] Dec, [facility] [address] [id number] [address] [place] [address], [place] [id number] Dec, [facility] [address] [id number] [address] [place] [address], [place] [id number] 2013 [facility] [address] [id number] [address] [place] [address], [place] [id number] [address] [facility] [address] [id number] [address] [place] [address], [place] [id number] Dec, [facility] [address] [id number] [address] [place] [address], [place] [id number] Dec, [facility] [address] [id number] [address] [place] [address], [place] [id number] Dec, [facility] [address] [id number] [address] [place] [address], [place] [id number] Nov, [facility] [address] [id number] [address] [place] [address], [place] [id number] Nov, [facility] [address] [id number] [address] [place] [address], [place] [id number] Nov, [facility] [address] [id number] [address] [place] [address], [place] [id number] Nov, [facility] [address] [id number] [address] [place] [address], [place] [id number] Nov, [facility] [address] [id number] [address] [place] [address], [place] [address] Nov, [facility] [address] [id number] [address] [place] [address], [place] [id number] Nov, [facility] [address] [id number] [address] [place] [address], [place] [id number] Nov, [facility] [address] [id number] [address] [place] [address], [place] [id number] Nov, [facility] [address] [id number] [address] [place] [address], [place] [id number] Nov, [facility] [address] [id number] [address] [place] [address], [place] [id number] Nov, [facility] [address] [id number] [address] [place] [address], [place] [id number] Nov, [facility] [address] [id number] [address] [place] [address], [place] [id number] Nov, [facility] [address] [id number] [address] [place] [address], [place] [id number] Oct, [facility] [address] [id number] [address] [place] [address], [place] [id number] Oct, [facility] [address] [id number] [address] [place] [address], [place] [id number] Oct, [facility] [address] [id number] [address] [place] [address], [place] [id number] Oct, [facility] [address] [id number] [address] [place] [address], [place] [id number] Oct, [facility] [address] [id number] [address] [place] [id number] 23 Oct, 2013 [facility] [address] [id number] [address] [place] [address], [place] [id number] 18 Oct, 2013 [facility] [address] [id number] [address] [place] [address], [place] [id number] 18 Oct, 2013 [facility] [address] [id number] [address] [place] [address], [place] [id number] 17 Oct, 2013 [facility] [address] [id number] [address] [place] [address], [place] [id number] 17 Oct, 2013 [facility] [address] [id number] [address] [place] [address], [place] [id number] Oct, [facility] [address] [id number] [address] [place] [address], [place] [id number] Oct, [facility] [address] [id number] [address] [place] [address], [place] [id number] 02 Oct, 2013 [facility] [address] [id number] [address] [place] [address], [place] [id number] Oct, [facility] [address] [id number] [address] [place] [address], [place] [id number] 14 Sep, 2013 [facility] [address] [id number] [address] [place] [address], [place] [id number] 14 Sep, 2013 [facility] [address] [id number] [address] [place] [address], [place] [id number] 05 Sep, 2013 [facility] [address] [id number] [address] [place] [id number] 05 Sep, 2013 [facility] [address] [id number] [address] [place] [address], [place] [id number] 04 Sep, 2013 [facility] [address] [id number] [address] [place] [address], [place] [id number] 04 Sep, 2013 [facility] [address] [id number] [address] [place] [address], [place] [id number] 04 Sep, 2013 [facility] [address] [id number] [address] [place] [address], [place] [id number] Sep, [facility] [address] [id number] [address] [place] [address], [place] [id number] Sep, [facility] [address] [id number] [address] [place] [address], [place] [id number] Sep, [facility] [address] [id number] [address] [place] [address], [place] [id number] Aug, [facility] [address] [id number] [address] [place] [address], [place] [id number] Aug, [facility] [address] [id number] [address] [place] [address], [place] [id number] Aug, [facility] [address] [id number] [address] [place] [address], [place] [id number] Aug, [facility] [address] [id number] [address] [place] [address], [place] [id number] Aug, [facility] [address] [id number] [address] [place] [address], [place] [id number] Aug, [facility] [address] [id number] [address] [place] [address], [place] [address] Aug, [facility] [address] [id number] [address] [place] [address], [place] [address] Aug, [facility] [address] [id number] [address] [place] [address], [place] [id number] Aug, [facility] [address] [id number] [address] [place] [address], [place] [address] Aug, [facility] [address] [id number] [address] [place] [address], [place] [address] Aug, [facility] [address] [id number] [address] [place] [address], [place] [address] Aug, [facility] [address] [id number] [address] [place] [address], [place] [id number] 18 Aug, 2013 [facility] [address] [id number] [address] [place] [address], [place] [id number] 18 Aug, 2013 [facility] [address] [id number] [address] [place] [address], [place] [address] 17 Aug, 2013 [facility] [address] [id number] [address] [place] [address], [place] [address] 14 Aug, 2013 [facility] [address] [id number] [address] [place] [address], [place] [address] 14 Aug, 2013 [facility] [address] [id number] [address] [place] [address], [place] [id number] 01 Aug, 2013 [facility] [address] [id number] [address] [place] [address], [place] [address] 20 Jul, 2013 [facility] [address] [id number] [address] [place] [address], [place] [id number] 19 Jul, 2013 [facility] [address] [id number] [address] [place] [address], [place] [address] 18 Jul, 2013 [facility] [address] [id number] [address] [place] [address], [place] [id number] 11 Jul, 2013 [facility] [address] [id number] [address] [place] [address], [place] [id number] 11 Jul, 2013 [facility] [address] [id number] [address] [place] [address], [place] [id number] 28 Jun, 2013 [facility] [address] [id number] [address] [place] [address], [place] [address] Jun, [facility] [address] [id number] [address] [place] [address], [place] [id number] 23 Jun, 2013 [facility] [address] [id number] [address] [place] [address], [place] [id number] 15 Jun, 2013 [facility] [address] [id number] [address] [place] [address], [place] [id number] 14 Jun, 2013 [facility] [address] [id number] [facility] [place] [address] Jun, [facility] [address] [id number] [address] [place] [address], [place] [id number] Jun, [facility] [address] [id number] [address] [place] [address], [place] [address] Jun, [facility] [address] [id number] [address] [place] [address], [place] [address] Jun, [facility] [address] [id number] [address] [place] [address], [place] [id number] Jun, [facility] [address] [id number] [address] [place] [address], [place] [address] May, [facility] [address] [id number] [address] [place] [address], [place] [id number] May, [facility] [address] [id number] [address] [place] [address], [place] [address] May, [facility] [address] [id number] [address] [place] [address], [place] [id number] May, [facility] [address] [id number] [address] [place] [address], [place] [address] May, [facility] [address] [id number] [address] [place] [address], [place] [address] May, [facility] [address] [id number] [address] [place] [address], [place] [address] May, [facility] [address] [id number] [address] [place] [address], [place] [address] May, [facility] [address] [id number] [address] [place] [address], [place] [id number] May, [facility] [address] [id number] [address] [place] [address], [place] [address] Apr, [facility] [address] [id number] [address] [place] [address], [place] [address] Apr, [facility] [address] [id number] [address] [place] [address], [place] [address] Apr, [facility] [address] [id number] [address] [place] [address], [place] [address] Apr, [facility] [address] [id number] [address] [place] [address], [place] [address] Apr, [facility] [address] [id number] [address] [place] [address], [place] [id number] Apr, [facility] [address] [id number] [address] [place] [address], [place] [address] Apr, [facility] [address] [id number] [address] [place] [address], [place] [address] March, [facility] [address] [id number] [address] [place] [address], [place] [address] Feb, [facility] [address] [id number] [address] [place] [address], [place] [address] Feb, [facility] [address] [id number] [address] [place] [address], [place] [address] Feb, [facility] [address] [id number] [address] [place] [address], [place] [address] Jan, [facility] [address] [id number] [address] [place] [address], [place] [address] Jan, [facility] [address] [id number] [address] [place] [address], [place] [address] Jan, [facility] [address] [id number] [address] [place] [address], [place] [address] 14 Jan, 2013 [facility] [address] [id number] [address] [place] [address], [place] [address] 12 Jan, 2013 [facility] [address] [id number] [address] [place] [address], [place] [id number] 08 Jan, 2013 [facility] [address] [id number] [address] [place] [address], [place] [address] 07 Jan, 2013 [facility] [address] [id number] [address] [place] [address], [place] [id number] 04 Jan, 2013 [facility] [address] [id number] [address] [place] [address], [place] [address] 28 Dec, 2012 [facility] [address] [id number] [address] [place] [address], [place] [address] 25 Dec, 2012 [facility] [address] [id number] [address] [place] [address], [place] [id number] 13 Dec, 2012 [facility] [address] [id number] [address] [place] [address], [place] [address] 11 Dec, 2012 [facility] [address] [id number] [address] [place] [address], [place] [id number] 07 Dec, 2012 [facility] [address] [id number] [address] [place] [address], [place] [id number] 06 Dec, 2012 [facility] [address] [id number] [address] [place] [address], [place] [id number] 05 Dec, 2012 [facility] [address] [id number] [address] [place] [address], [place] [address] Nov, [facility] [address] [id number] [address] [place] [address], [place] [id number] 24 Nov, 2012 [facility] [address] [id number] [address] [place] [address], [place] [id number] 18 Nov, 2012 [facility] [address] [id number] [address] [place] [address], [place] [id number] 15 Nov, 2012 [facility] [address] [id number] [address] [place] [address], [place] [address] Nov, [facility] [address] [id number] [address] [place] [address], [place] [id number] 10 Nov, 2012 [facility] [address] [id number] [address] [place] [address], [place] [address] 02 Nov, 2012 [facility] [address] [id number] [address] [place] [address], [place] [address] Oct, [facility] [address] [id number] [address] [place] [address], [place] [address] Oct, [facility] [address] [id number] [address] [place] [address], [place] [id number] Oct, [facility] [address] [id number] [address] [place] [address], [place] [id number] Oct, [facility] [address] [id number] [address] [place] [address], [place] [id number] Oct, [facility] [address] [id number] [address] [place] [address], [place] [address] Oct, [facility] [address] [id number] [address] [place] [address], [place] [address] Oct, [facility] [address] [id number] [address] [place] [address], [place] [id number] Oct, [facility] [address] [id number] [address] [place] [address], [place] [address] Oct, [facility] [address] [id number] [address] [place] [address], [place] [address] Oct, [facility] [address] [id number] [address] [place] [address], [place] [address] Oct, [facility] [address] [id number] [address] [place] [address], [place] [address] Oct, [facility] [address] [id number] [address] [place] [address], [place] [address] Sep, [facility] [address] [id number] [address] [place] [address], [place] [address] Sep, [facility] [address] [id number] [address] [place] [address], [place] [address] Sep, [facility] [address] [id number] [address] [address] Sep, [facility] [address] [id number] [address] [place] [address], [place] [address] Sep, [facility] [address] [id number] [address] [place] [id number] Sep, [facility] [address] [id number] [address] [place] [address] Sep, [facility] [address] [id number] [address] [place] [address] Sep, [facility] [address] [id number] [address] [place] [address], [place] [address] Sep, [facility] [address] [id number] [address] [place] [id number] Sep, [facility] [address] [id number] [address] [place] [address] Sep, [facility] [address] [id number] [address] [place] [id number] Aug, [facility] [address] [id number] [address] [place] [address] Aug, [facility] [address] [id number] [address] [place] [address] Aug, [facility] [address] [id number] [address] [place] [id number] Aug, [facility] [address] [id number] [address] [place] [id number] Aug, [facility] [address] [id number] [address] [place] [address] Aug, [facility] [address] [id number] [address] [place] [address] Aug, [facility] [address] [id number] [address] [place] [id number] Aug, [facility] [address] [id number] [address] [place] [address], [place] [address] Aug, [facility] [address] [id number] [address] [place] [address], [place] [address] Aug, [facility] [address] [id number] [address] [place] [address], [place] [address] Jul, [facility] [address] [id number] [address] [place] [address], [place] [address] Jul, [facility] [address] [id number] [address] [place] [address], [place] [address] Jul, [facility] [address] [id number] [address] [place] [address], [place] [address] Jul, [facility] [address] [id number] [address] [place] [address], [place] [address] Jun, [facility] [address] [id number] [address] [place] [address], [place] [address] Jun, [facility] [address] [id number] [address] [place] [address], [place] [id number] Jun, [facility] [address] [id number] [address] [place] [address], [place] [address] Jun, [facility] [address] [id number] [address] [place] [address], [place] [id number] Jun, [facility] [address] [id number] [address] [place] [address], [place] [address] Jun, [facility] [address] [id number] [address] [place] [address], [place] [id number] Jun, [facility] [address] [id number] [address] [place] [address], [place] [address] May, [facility] [address] [id number] [address] [place] [address], [place] [address] May, [facility] [address] [id number] [address] [place] [address], [place] [address] May, [facility] [address] [id number] [address] [place] [address], [place] [address] May, [facility] [address] [id number] [address] [place] [address], [place] [address] May, [facility] [address] [id number] [address] [place] [address], [place] [address] Apr, [facility] [address] [id number] [address] [place] [address], [place] [address] Apr, [facility] [address] [id number] [address] [place] [address], [place] [address] Apr, [facility] [address] [id number] [address] [place] [address], [place] [address] Apr, [facility] [address] [id number] [address] [place] [address], [place] [id number] Apr, [facility] [address] [id number] [address] [place] [address], [place] [address] March, [facility] [address] [id number] [address] [place] [address], [place] [address] March, [facility] [address] [id number] [address] [place] [address], [place] [address] March, [facility] [address] [id number] [address] [place] [address], [place] [id number] March, [facility] [address] [id number] [address] [place] [address], [place] [address] March, [facility] [address] [id number] [address] [place] [address], [place] [address] March, [facility] [address] [id number] [address] [place] [address], [place] [address] March, [facility] [address] [id number] [address] [place] [address], [place] [id number] March, [facility] [address] [id number] [address] [place] [address], [place] [address] March, [facility] [address] [id number] [address] [place] [address], [place] [address] March, [facility] [address] [id number] [address] [place] [address], [place] [address] Feb, [facility] [address] [id number] [address] [place] [address], [place] [address] Feb, [facility] [address] [id number] [address] [place] [address], [place] [id number] Feb, [facility] [address] [id number] [address] [place] [address], [place] [address] Feb, [facility] [address] [id number] [address] [place] [address], [place] [id number] Feb, [facility] [address] [id number] [address] [place] [address], [place] [id number] Feb, [facility] [address] [id number] [address] [place] [address], [place] [address] Feb, [facility] [address] [id number] [address] [place] [address], [place] [id number] Feb, [facility] [address] [id number] [address] [place] [address], [place] [address] Feb, [facility] [address] [id number] [address] [place] [address], [place] [id number] Jan, [facility] [address] [id number] [address] [place] [address], [place] [address] Jan, [facility] [address] [id number] [address] [place] [address], [place] [id number] 05 Jan, 2012 [facility] [address] [id number] [address] [place] [address], [place] [address] Jan, [facility] [address] [id number] [address] [place] [address], [place] [id number] Dec, [facility] [address] [id number] [address] [place] [id number] Dec, [facility] [address] [id number] [address] [place] [id number] Nov, [facility] [address] [id number] [address] [place] [id number] Nov, [facility] [address] [id number] [address] [place] [id number] Nov, [facility] [address] [id number] [address] [place] [id number] Nov, [facility] [address] [id number] [address] [place] [id number] Nov, [facility] [address] [id number] [address] [place] [id number] Oct, [facility] [address] [id number] [address] [place] [id number] Oct, [facility] [address] [id number] [address] [place] [id number] Oct, [facility] [address] [id number] [address] [place] [id number] Oct, [facility] [address] [id number] [address] [place] [phone] Oct, [facility] [address] [id number] [address] [place] [phone] Oct, [facility] [address] [id number] [address] [place] [phone] Oct, [facility] [address] [id number] [address] [place] [phone] Oct, [facility] [address] [id number] [address] [place] [phone] Sep, IMMUNIZATIONS No Known Immunizations SOCIAL HISTORY Never Assessed REASON FOR VISIT PLAN OF CARE VITAL SIGNS MEDICATIONS Unknown Medications RESULTS No Results PROCEDURES Procedure Date Ordered Result Body Site LIPID PANEL Jul 02, 2014 COMPREHEN METABOLIC PANEL Jul 02, 2014 VENIPUNCT, ROUTINE* Jul 02, 2014 INSTRUCTIONS MEDICATIONS ADMINISTERED No Known Medications MEDICAL (GENERAL) HISTORY Type Description Date 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
--- OUTSIDE RECORDS SUMMARY | 2020-06-18 15:13 | XMS REPORT ---
Author Author Sanjuanita [facility] Address [address] [place] [address] Care Team Providers Care Vegetable Sorter Name Role Phone ELIZABETH SHARIF Unavailable PROBLEMS Type Condition ICD9-CM Code KXX80-XK Code Onset Dates Condition S tatus SNOMED Code Problem Coronary artery disease I25.10 Active 34940611 Problem Hypertension I10 Active 5489915 3 Problem Other chronic pain G89.29 Active 8 1807715 Problem Hyperlipidemia E78.5 Active 03430 004 Problem Type 2 diabetes mellitus wit hout complication, without long-term current use of insulin E11.9 Active 409665248 Problem Low back pain M54.5 Active 826835 009 Problem Pharyngeal dysphagia R13.13 Active 41699745965396 Problem Anxiety F41.9 Active 37399426 Problem Peripheral vascular disease I73.9 Ac tive 613167920 Problem Suprapubic catheter Z93.59 Active 393330593 Problem Reactive depression F32.9 Active 43007593 Problem Neurogenic bladder N31.9 Active 3 54629285 Problem Ventral hernia without obstruction or gangrene K43 .9 Active 199782827 Problem Insomnia G47.00 Active 345962383 Problem Paroxysmal atrial fibrillation I48.0 Active 808806941 Problem Postmenopausal atrophic vaginitis N95.2 Active 23961766 Problem Encounter for suprapubic catheter care Z43.5 Active [id number] ALLERGIES No Information ENCOUNTERS Encounter Location Date Diagnosis [facility] [address] [facility] [id number] [address] [place] [address] Jun, [facility] [address] [facility] [id number] [address] [place] [address] Jun, [facility] [address] [facility] [id number] [address] [place] [address] Jun, [facility] [address] [facility] [id number] [address] [place] [address] Jun, Strain of right shoulder, scherer bsequent encounter S46.911D [place] [address] [id number] [address] [place], [place] [address] Jun, Strain of right shoulder, scherer bsequent encounter S46.911D [place] [address] [id number] [address] [place] [address] Jun, Anxiety F41.9 Via [facility] [employer] [address] [place] [id number] Jun, Neurogenic bladder N31.9 and Anxiety F41 .9 [facility] [address] [place] [id number] May, Anxiety F41.9 [place] [address] [id number] [address] [place] [address] May, Dysuria R30.0 [place] [address] [id number] [address] [place] [address] May, Strain of right shoulder, scherer bsequent encounter S46.911D and Anxiety F41.9 [place] [address] [id number] [address] [place] [address] Apr, Via [facility] [employer] [address] [place] [id number] Apr, Strain of right shoulder, subsequent enc ounter S46.911D [place] [address] [id number] [address] [place] [address] Apr, Strain of right shoulder, scherer bsequent encounter S46.911D and Anxiety F41.9 Via [facility] [employer] [address] [place] [id number] 13 Apr, 2019 Type 2 diabetes mellitus without complic ation, without long-term current use of insulin E11.9 and Neurogenic bladder N31.9 Via [facility] [address] [place] [id number] Apr, Strain of right shoulder, subsequent enc ounter S46.911D ; History of GI bleed Z87.19 ; Neurogenic bladder N31.9 and Reactive depression F32.9 [facility] [address] [id number] [address] [place] [address] 10 Apr, 2019 Acute pain of left shoulder M25.512 [facility] [address] [id number] [address] [place] [address] Apr, [facility] [address] [id number] [address] [place] [address] Apr, Anxiety F41.9 and Other [employer] 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 Via [facility] [employer] [address] [place] [id number] March, Gastrointestinal hemorrhage associated w ith acute gastritis K29.01 [facility] [address] [id number] [address] [place] [phone] March, Via [facility] [employer] [address] [place] [id number] March, Bronchitis J40 [facility] [address] [id number] [address] [place] [address] March, Cough R05 [facility] [address] [id number] [address] [place] [address] March, Other chronic pain G89.29 [facility] [address] [id number] [address] [place] [address] March, Anxiety F41.9 [facility] [address] [id number] [address] [place] [address] March, [facility] [address] [id number] [address] [place] [address] Feb, Other chronic pain G89.29 [facility] [address] [id number] [address] [place] [address] Feb, Anxiety F41.9 [facility] [address] [id number] [address] [place] [address] Feb, Other chronic pain G89.29 Via [facility] [address] [place] [id number] Feb, Neurogenic bladder N31.9 and Suprapubic catheter Z93.59 [facility] [address] [id number] [address] [place] [address] Jan, Anxiety F41.9 [facility] [address] [id number] [address] [place] [address] Dec, Anxiety F41.9 [facility] [address] [id number] [address] [place] [address] Dec, Other chronic pain G89.29 an d Anxiety F41.9 [facility] [address] [id number] [address] [place] [address] Dec, Via [employer] [address] [place] [id number] Dec, Neurogenic bladder N31.9 and Suprapubic catheter Z93.59 [facility] [address] [id number] [address] [place] [address] Nov, Other chronic pain G89.29 an d Anxiety F41.9 [facility] [address] [id number] [address] [place] [address] Nov, Via [facility] [employer] [address] [place] [id number] Nov, Suprapubic catheter Z93.59 [facility] [address] [id number] [address] [place] [address] Oct, Other chronic pain G89.29 an d Anxiety F41.9 [facility] [address] [id number] [address] [place] [address] Oct, [facility] [address] [id number] [address] [place] [address] Oct, Suprapubic catheter Z93.59 [facility] [address] [id number] [address] [place] [address] Oct, Via [facility] [address] [place] [id number] Oct, [facility] [address] [id number] [address] [place] [phone] Oct, Anxiety F41.9 [facility] [address] [id number] [address] [place] [address] Oct, Anxiety F41.9 Via [facility] [address] [place] [id number] Oct, Other chronic pain G89.29 [facility] [address] [id number] [address] [place] [address] Sep, Other chronic pain G89.29 Via [facility] [address] [place] [id number] Sep, Suprapubic catheter Z93.59 and Cervicalg ia M54.2 [facility] [address] [id number] [address] [place] [address] Sep, [facility] [address] [id number] [address] [place] [address] Sep, [facility] [address] [id number] [address] [place] [phone] Sep, Via [facility] [address] [place] [id number] Aug, Cystitis N30.90 [facility] [address] [id number] [address] [place] [address] Aug, [facility] [address] [id number] [address] [place] [address] Aug, Other chronic pain G89.29 [facility] [address] [id number] [address] [place] [address] Aug, Via [facility] [address] [place] [id number] Aug, Encounter for suprapubic catheter care Z 43.5 [facility] [address] [id number] [address] [place] [address] Jul, Via [employer] [address] [place] [id number] Jul, [facility] [address] [id number] [address] [place] [address] Jul, Other chronic pain G89.29 [facility] [address] [id number] [address] [place] [address] Jul, [facility] [address] [id number] [address] [place] [address] Jul, Via [employer] [address] [place] [id number] Jun, Postmenopausal atrophic vaginitis N95.2 [place] [address] [id number] [address] [place] [address] Jun, Other chronic pain G89.29 [facility] [address] [id number] [address] [place] [address] Jun, Via [employer] [address] [place] [id number] May, Anxiety F41.9 ; Type 2 diabetes mellitus without complication, without long-term current use of insulin E11.9 ; Hypertension I10 ; Low back pain M54.5 ; Paroxysmal atrial fibrillation I48.0 and 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 [place] [address] [id number] [address] [place] [address] May, Other chronic pain G89.29 Via [employer] [address] [place] [id number] May, Low back pain M54.5 [place] [address] [id number] [address] [place] [address] May, [facility] [address] [id number] [address] [place] [address] Apr, Other chronic pain G89.29 [facility] [address] [id number] [address] [place] [address] Apr, [facility] [address] [id number] [address] [place] [address] Apr, Via [facility] [employer] [address] [place] [id number] Apr, Closed compression fracture of L3 lumbar vertebra with routine healing, subsequent encounter S32.030D Via [facility] [employer] [address] [place] [address] 14 Apr, 2018 Low back pain M54.5 Via [employer] [address] [place] [id number] Apr, Coccydynia M53.3 [facility] [address] [id number] [address] [place] [address] March, [facility] [address] [id number] [address] [place] [address] March, Other chronic pain G89.29 [facility] [address] [id number] [address] [place] [address] March, [facility] [address] [id number] [address] [place] [address] March, [facility] [address] [id number] [address] [place] [address] Feb, [facility] [address] [id number] [address] [place] [address] Feb, Other chronic pain G89.29 Via [facility] [employer] [address] [place] [id number] Feb, Other chronic pain G89.29 and Anxiety F4 1.9 [facility] [address] [id number] [address] [place] [address] Feb, [facility] [address] [id number] [address] [place] [address] Jan, [facility] [address] [id number] [address] [place] [address] Jan, [facility] [address] [facility] [id number] [address] [place] [address] Jan, [facility] [address] [facility] [id number] [address] [place] [address] Jan, [facility] [address] [facility] [id number] [address] [place] [address] Dec, Via [facility] [employer] [address] [place] [address] Dec, Peripheral vascular disease I73.9 ; 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 ; Other chronic pain G89.29 ; Anxiety F41.9 ; Reactive depression F32.9 ; Insomnia G47.00 and Type 2 diabetes mellitus without complication, without long-term current use of insulin E11.9 [facility] ADRIENNE SANCHEZ [id number] [place] [address] Nov, [facility] [address] [id number] [id number] Nov, Anxiety F41.9 [facility] [address] [facility] [id number] [address] [place] [address] Nov, [facility] [address] [id number] [place] [id number] Nov, Anxiety F41.9 Via [facility] [employer] [address] [place] [id number] Nov, Status post surgery Z98.890 ; Confused R 41.0 ; Anxiety F41.9 and Other chronic pain G89.29 [facility] [address] [id number] [place] [id number] Nov, Other chronic pain G89.29 [facility] [address] [facility] [id number] [address] [place] [address] Oct, [facility] [address] [id number] [id number] Oct, Other chronic pain G89.29 [facility] [address] [id number] [address] [place] [address] Oct, Anxiety F41.9 [facility] [address] [id number] [place] [id number] Sep, Other chronic pain G89.29 [facility] [address] [id number] [place] [id number] Sep, Via [facility] [employer] [address] [place] [id number] Aug, Dysuria R30.0 and Anxiety F41.9 [facility] [address] [id number] [address] [place] [address] Aug, [facility] [address] [id number] [place] [id number] Aug, Other chronic pain G89.29 [facility] [address] [facility] [id number] [address] [place] [address] Jul, Other chronic pain G89.29 [facility] [address] [id number] [place] [id number] Jun, [facility] [address] [id number] [place] [id number] Jun, Other chronic pain G89.29 [facility] [address] [facility] [id number] [address] [place] [address] Jun, [facility] [address] [facility] [id number] [address] [place] [address] May, Other chronic pain G89.29 [facility] [address] [id number] [address] [place] [address] Apr, Other chronic pain G89.29 Via [facility] [employer] [address] [place] [id number] Apr, Reactive depression F32.9 and Pharyngeal dysphagia R13.13 [facility] [address] [id number] [address] [place] [address] Apr, Urinary tract infection with out hematuria, site unspecified N39.0 [facility] [address] [id number] [address] [place] [address] March, Other chronic pain G89.29 [facility] [address] [id number] [address] [place] [address] Feb, Other chronic pain G89.29 [facility] [address] [id number] [address] [place] [address] Feb, [facility] [address] [id number] [place] [id number] Feb, Via [employer] [address] [place] [id number] Feb, Dysuria R30.0 and Ventral hernia without obstruction or gangrene K43.9 [facility] [address] [facility] [id number] [address] [place] [address] Jan, Other chronic pain G89.29 [facility] [address] [id number] [place] [id number] Dec, Other chronic pain G89.29 [facility] [address] [id number] [address] [place] [address] Nov, Other chronic pain G89.29 Via [employer] [employer] [address] [place] [id number] Nov, Lymphadenitis I88.9 [facility] [address] [id number] [address] [place] [address] Nov, Other chronic pain G89.29 [facility] [address] [id number] [address] [place] [address] Nov, [facility] [address] [id number] [place] [id number] Nov, Other chronic pain G89.29 Via [employer] [address] [place] [id number] Oct, Low back pain M54.5 ; Hypertension I10 a nd Type 2 diabetes mellitus without complication, without long-term current use of insulin E11.9 [facility] [address] [id number] [address] [place] [address] Oct, [facility] [address] [id number] [address] [place] [address] Oct, [facility] [address] [id number] [address] [place] [address] Oct, [facility] [address] [id number] [address] [place] [address] Oct, [facility] [address] [id number] [address] [place] [address] Sep, [facility] [address] [id number] [address] [place] [address] Sep, [facility] [address] [id number] [address] [place] [address] Aug, Other chronic pain G89.29 [facility] [address] [id number] [address] [place] [address] Jul, [facility] [address] [id number] [address] [place] [address] Jul, [facility] [address] [id number] [address] [place] [address] Jul, [facility] [address] [id number] [address] [place] [address] Jun, [facility] [address] [id number] [address] [place] [address] Jun, Via [facility] [address] [place] [id number] Jun, Low back pain M54.5 ; Other chronic pain G89.29 and Coronary artery disease I25.10 [facility] [address] [id number] [address] [place] [address] Jun, [facility] [address] [id number] [address] [place] [address] May, [facility] [address] [id number] [address] [place] [address] May, [facility] [address] [id number] [address] [place] [address] May, Other chronic pain G89.29 [facility] [address] [id number] [address] [place] [address] May, [facility] [address] [id number] [address] [place] [address] Apr, [facility] [address] [id number] [address] [place] [address] 17 Apr, 2016 Acute cystitis without hemat uria N30.00 [facility] [address] [id number] [address] [place] [address] 16 Apr, 2016 Acute cystitis without hemat uria N30.00 ; Coronary artery disease I25.10 ; Low back pain M54.5 and Other chronic pain G89.29 [facility] [address] [id number] [address] [place] [address] Apr, Other chronic pain G89.29 [facility] [address] [id number] [address] [place] [address] March, Other chronic pain G89.29 [facility] [address] [id number] [address] [place] [address] 18 Feb, 2016 [facility] [address] [id number] [address] [place] [address] Feb, Arthritis M19.90 [facility] [address] [id number] [address] [place] [address] Feb, [facility] [address] [id number] [address] [place] [address] Jan, [facility] [address] [id number] [address] [place] [address] Jan, [facility] [address] [id number] [address] [place] [address] Jan, Other chronic pain G89.29 [facility] [address] [id number] [address] [place] [address] Jan, Hypertension I10 ; Coronary artery disease I25.10 and Insomnia G47.00 [facility] [address] [id number] [address] [place] [address] Jan, [facility] [address] [id number] [address] [place] [address] Dec, Right hip pain M25.551 [facility] [address] [facility] [id number] [address] [place] [phone] Dec, [facility] [address] [id number] [address] [place] [phone] Dec, [facility] [address] [id number] [address] [place] [id number] Dec, [facility] [address] [facility] [id number] [address] [place] [id number] Dec, Other chronic pain G89.29 [facility] [address] [id number] [address] [place] [phone] Dec, [facility] [address] [id number] [address] [place] [id number] Nov, [facility] [address] [id number] [address] [place] [id number] Nov, Other chronic pain G89.29 [facility] [address] [id number] [address] [place] [phone] Nov, Right hip pain M25.551 and C oronary artery disease I25.10 [facility] [address] [id number] [address] [place] [id number] Nov, Other chronic pain G89.29 [facility] [address] [id number] [address] [place] [phone] Oct, [facility] [address] [id number] [address] [place] [phone] Oct, [facility] [address] [id number] [address] [place] [id number] Sep, [facility] [address] [id number] [address] [place] [id number] Sep, [facility] [address] [id number] [address] [place] [id number] Aug, [facility] [address] [facility] [id number] [address] [place] [phone] Aug, Hypertension I10 ; Coronary artery disease I25.10 and Arthritis M19.90 [facility] [address] [id number] [address] [place] [id number] Jun, [facility] [address] [id number] [address] [place] [id number] Jun, Essential hypertension, jayson gn 401.1 ; Other chronic pain 338.29 and Chronic airway obstruction, not elsewhere classified 496 [facility] [address] [facility] [id number] [address] [place] [id number] Jun, [facility] [address] [id number] [address] [place] [address] Jun, [facility] [address] [id number] [address] [place] [address] Jun, [facility] [address] [id number] [address] [place] [id number] May, [facility] [address] [facility] [id number] [address] [place] [address] May, [facility] [address] [id number] [address] [place] [address] Apr, [facility] [address] [id number] [address] [place] [address], [place] [address] Apr, [facility] [address] [id number] [address] [place] [address], [place] [address] Apr, [facility] [address] [id number] [address] [place] [address], [place] [address] March, [facility] [address] [id number] [address] [place] [address], [place] [address] March, [facility] [address] [id number] [address] [place] [address], [place] [address] March, [facility] [address] [id number] [address] [place] [address], [place] [address] March, [facility] [address] [id number] [address] [place] [address], [place] [address] March, Sialadenitis 527.2 [facility] [address] [id number] [address] [place] [address], [place] [address] Feb, [facility] [address] [id number] [address] [place] [address], [place] [address] Feb, [facility] [address] [id number] [address] [place] [address], [place] [address] Feb, [facility] [address] [id number] [address] [place] [address], [place] [address] 14 Feb, 2015 [facility] [address] [id number] [address] [place] [address], [place] [address] Feb, [facility] [address] [id number] [address] [place] [address], [place] [address] Jan, [facility] [address] [id number] [address] [place] [address], [place] [address] Jan, [facility] [address] [id number] [address] [place] [address], [place] [address] Jan, [facility] [address] [id number] [address] [place] [address], [place] [address] Jan, [facility] [address] [id number] [address] [place] [address], [place] [address] Jan, [facility] [address] [id number] [address] [place] [address], [place] [address] Jan, [facility] [address] [id number] [address] [place] [address], [place] [address] Dec, 2014 [facility] [address] [id number] [address] [place] [address], [place] [address] Dec, 2014 [facility] [address] [id number] [address] [place] [address], [place] [address] Dec, 2014 [facility] [address] [id number] [address] [place] [address], [place] [address] Dec, 2014 [facility] [address] [id number] [address] [place] [address], [place] [address] Dec, [facility] [address] [id number] [address] [place] [address], [place] [address] Dec, [facility] [address] [id number] [address] [place] [address], [place] [address] Nov, [facility] [address] [id number] [address] [place] [address], [place] [address] Nov, [facility] [address] [id number] [address] [place] [address] Nov, [facility] [address] [id number] [address] [place] [address], [place] [address] Nov, [facility] [address] [id number] [address] [place] [address], [place] [address] Nov, [facility] [address] [id number] [address] [place] [address], [place] [address] Nov, [facility] [address] [id number] [address] [place] [address] Nov, [facility] [address] [id number] [address] [place] [address], [place] [address] Nov, [facility] [address] [id number] [address] [place] [address], [place] [address] Nov, [facility] [address] [id number] [address] [place] [address], [place] [address] Nov, [facility] [address] [id number] [address] [place] [address], [place] [address] Nov, [facility] [address] [id number] [address] [place] [address], [place] [address] Nov, [facility] [address] [id number] [address] [place] [address], [place] [address] Nov, [facility] [address] [id number] [address] [place] [address], [place] [address] Nov, [facility] [address] [id number] [address] [place] [address], [place] [address] Oct, [facility] [address] [id number] [address] [place] [address], [place] [address] Oct, [facility] [address] [id number] [address] [place] [address], [place] [address] Oct, [facility] [address] [id number] [address] [place] [address], [place] [address] 18 Oct, 2014 [facility] [address] [id number] [address] [place] [address], [place] [address] 18 Oct, 2014 [facility] [address] [id number] [address] [place] [address], [place] [address] 17 Oct, 2014 [facility] [address] [id number] [address] [place] [address], [place] [address] 17 Oct, 2014 [facility] [address] [id number] [address] [place] [address], [place] [address] 10 Oct, 2014 [facility] [address] [id number] [address] [place] [address], [place] [address] Oct, [facility] [address] [id number] [address] [place] [address], [place] [address] Sep, [facility] [address] [id number] [address] [place] [address], [place] [address] Sep, [facility] [address] [id number] [address] [place] [address], [place] [address] Sep, [facility] [address] [id number] [address] [place] [address], [place] [address] Sep, [facility] [address] [id number] [address] [place] [address], [place] [address] Sep, [facility] [address] [id number] [address] [place] [address], [place] [address] Sep, [facility] [address] [id number] [address] [place] [address], [place] [address] Sep, [facility] [address] [id number] [address] [place] [address], [place] [address] Sep, [facility] [address] [id number] [address] [place] [address], [place] [address] Sep, [facility] [address] [id number] [address] [place] [address], [place] [address] Sep, [facility] [address] [id number] [address] [place] [address], [place] [address] Sep, [facility] [address] [id number] [address] [place] [address], [place] [address] Sep, [facility] [address] [id number] [address] [place] [address], [place] [address] Aug, [facility] [address] [id number] [address] [place] [address], [place] [address] Aug, [facility] [address] [id number] [address] [place] [address], [place] [address] 29 Aug, 2014 [facility] [address] [id number] [address] [place] [address], [place] [address] 29 Aug, 2014 [facility] [address] [id number] [address] [place] [address], [place] [address] 28 Aug, 2014 [facility] [address] [id number] [address] [place] [address], [place] [address] 28 Aug, 2014 [facility] [address] [id number] [address] [place] [address], [place] [address] 17 Aug, 2014 [facility] [address] [id number] [address] [place] [address], [place] [address] 17 Aug, 2014 [facility] [address] [id number] [address] [place] [address], [place] [address] 30 Jul, 2013 [facility] [address] [id number] [address] [place] [address], [place] [address] 30 Sep, 2013 [facility] [address] [id number] [address] [place] [address], [place] [address] 30 Sep, 2013 [facility] [address] [id number] [address] [place] [address], [place] [address] 30 Sep, 2013 [facility] [address] [id number] [address] [place] [address], [place] [address] 25 Sep, 2013 [facility] [address] [id number] [address] [place] [address], [place] [address] 25 Sep, 2013 [facility] [address] [id number] [address] [place] [address], [place] [address] 15 Sep, 2013 [facility] [address] [id number] [address] [place] [address], [place] [address] 15 Sep, 2013 [facility] [address] [id number] [address] [place] [address], [place] [address] 11 Sep, 2013 [facility] [address] [id number] [address] [place] [address], [place] [address] 11 Jul, 2013 [facility] [address] [id number] [facility] [place] [address] Jun, [facility] [address] [id number] [address] [place] [address], [place] [address] Jun, [facility] [address] [id number] [facility] [place] [address] Jun, [facility] [address] [id number] [address] [place] [address], [place] [address] Jun, [facility] [address] [id number] [address] [place] [address], [place] [address] Jun, [facility] [address] [id number] [address] [place] [address], [place] [address] Jun, [facility] [address] [id number] [address] [place] [address], [place] [address] Jun, [facility] [address] [id number] [address] [place] [address], [place] [address] Jun, [facility] [address] [id number] [address] [place] [address], [place] [address] Jun, [facility] [address] [id number] [address] [place] [address], [place] [address] Jun, [facility] [address] [id number] [address] [place] [address], [place] [address] Jun, [facility] [address] [id number] [address] [place] [address], [place] [address] Jun, [facility] [address] [id number] [address] [place] [address], [place] [address] Jun, [facility] [address] [id number] [address] [place] [address], [place] [address] Jun, [facility] [address] [id number] [address] [place] [address], [place] [address] Jun, [facility] [address] [id number] [address] [place] [address], [place] [address] Jun, [facility] [address] [id number] [facility] [place] [address] Jun, [facility] [address] [id number] [address] [place] [address], [place] [address] Jun, [facility] [address] [id number] [address] [place] [address], [place] [address] Jun, [facility] [address] [id number] [address] [place] [address], [place] [address] Jun, [facility] [address] [id number] [address] [place] [address], [place] [address] Jun, [facility] [address] [id number] [address] [place] [address], [place] [address] Jun, [facility] [address] [id number] [address] [place] [address], [place] [address] May, [facility] [address] [id number] [address] [place] [address], [place] [address] May, [facility] [address] [id number] [address] [place] [address], [place] [address] May, [facility] [address] [id number] [address] [place] [address], [place] [address] May, [facility] [address] [id number] [address] [place] [address], [place] [address] May, [facility] [address] [id number] [address] [place] [address], [place] [address] May, [facility] [address] [id number] [address] [place] [address], [place] [address] May, [facility] [address] [id number] [address] [place] [address], [place] [address] May, [facility] [address] [id number] [address] [place] [address], [place] [address] May, [facility] [address] [id number] [address] [place] [address], [place] [address] May, [facility] [address] [id number] [facility] [place] [address] May, [facility] [address] [id number] [address] [place] [address], [place] [address] May, [facility] [address] [id number] [address] [place] [address], [place] [address] May, [facility] [address] [id number] [address] [place] [address], [place] [address] Apr, [facility] [address] [id number] [address] [place] [address], [place] [address] Apr, [facility] [address] [id number] [address] [place] [address], [place] [address] Apr, [facility] [address] [id number] [address] [place] [address], [place] [address] Apr, [facility] [address] [id number] [address] [place] [address], [place] [address] Apr, [facility] [address] [id number] [address] [place] [address], [place] [address] Apr, [facility] [address] [id number] [address] [place] [address], [place] [address] Apr, [facility] [address] [id number] [address] [place] [address], [place] [address] Apr, [facility] [address] [id number] [address] [place] [address], [place] [address] Apr, [facility] [address] [id number] [address] [place] [address], [place] [address] March, [facility] [address] [id number] [address] [place] [address], [place] [address] March, [facility] [address] [id number] [address] [place] [address], [place] [address] March, [facility] [address] [id number] [facility] [place] [address] March, [facility] [address] [id number] [address] [place] [address], [place] [address] March, [facility] [address] [id number] [facility] [place] [address] March, [facility] [address] [id number] [address] [place] [address], [place] [address] March, [facility] [address] [id number] [address] [place] [address], [place] [address] March, [facility] [address] [id number] [address] [place] [address], [place] [address] March, [facility] [address] [id number] [address] [place] [address], [place] [address] March, [facility] [address] [id number] [address] [place] [address], [place] [address] March, [facility] [address] [id number] [address] [place] [address], [place] [address] March, [facility] [address] [id number] [address] [place] [address], [place] [address] March, [facility] [address] [id number] [address] [place] [address], [place] [address] March, [facility] [address] [id number] [address] [place] [address], [place] [address] March, [facility] [address] [id number] [address] [place] [address], [place] [address] March, [facility] [address] [id number] [address] [place] [address], [place] [address] March, [facility] [address] [id number] [address] [place] [address], [place] [address] March, [facility] [address] [id number] [address] [place] [address], [place] [address] March, [facility] [address] [id number] [address] [place] [address], [place] [address] March, [facility] [address] [id number] [address] [place] [address], [place] [address] Feb, [facility] [address] [id number] [address] [place] [address], [place] [address] Feb, [facility] [address] [id number] [address] [place] [address], [place] [address] Feb, [facility] [address] [id number] [address] [place] [address], [place] [address] Feb, [facility] [address] [id number] [address] [place] [address], [place] [address] Feb, [facility] [address] [id number] [address] [place] [address], [place] [address] Feb, [facility] [address] [id number] [address] [place] [address], [place] [address] Feb, [facility] [address] [id number] [address] [place] [address], [place] [address] Feb, [facility] [address] [id number] [address] [place] [address], [place] [address] Jan, [facility] [address] [id number] [address] [place] [address], [place] [address] Jan, [facility] [address] [id number] [address] [place] [address], [place] [address] Jan, [facility] [address] [id number] [address] [place] [address], [place] [address] 24 Jan, 2014 [facility] [address] [id number] [address] [place] [address], [place] [address] Jan, [facility] [address] [id number] [address] [place] [address], [place] [address] Jan, [facility] [address] [id number] [address] [place] [address], [place] [address] Jan, [facility] [address] [id number] [address] [place] [address], [place] [address] Jan, [facility] [address] [id number] [address] [place] [address], [place] [address] Jan, [facility] [address] [id number] [address] [place] [address], [place] [address] Jan, [facility] [address] [id number] [address] [place] [address], [place] [address] Dec, [facility] [address] [id number] [address] [place] [address], [place] [address] Dec, [facility] [address] [id number] [address] [place] [address], [place] [address] Dec, [facility] [address] [id number] [address] [place] [address], [place] [address] Dec, [facility] [address] [id number] [address] [place] [address], [place] [address] Dec, [facility] [address] [id number] [address] [place] [address], [place] [address] Dec, [facility] [address] [id number] [address] [place] [address], [place] [address] Dec, [facility] [address] [id number] [address] [place] [address], [place] [address] Dec, [facility] [address] [id number] [address] [place] [address], [place] [address] Nov, [facility] [address] [id number] [address] [place] [address], [place] [address] Nov, [facility] [address] [id number] [address] [place] [address], [place] [address] Nov, [facility] [address] [id number] [address] [place] [address], [place] [address] Nov, [facility] [address] [id number] [address] [place] [address], [place] [address] Nov, [facility] [address] [id number] [address] [place] [address], [place] [address] Nov, [facility] [address] [id number] [address] [place] [address], [place] [address] Nov, [facility] [address] [id number] [address] [place] [address], [place] [address] Nov, [facility] [address] [id number] [address] [place] [address], [place] [address] Nov, [facility] [address] [id number] [address] [place] [address], [place] [address] Nov, [facility] [address] [id number] [address] [place] [address], [place] [address] Nov, [facility] [address] [id number] [address] [place] [address], [place] [address] Nov, [facility] [address] [id number] [address] [place] [address], [place] [address] Nov, [facility] [address] [id number] [address] [place] [address], [place] [address] Oct, [facility] [address] [id number] [address] [place] [address], [place] [address] Oct, [facility] [address] [id number] [address] [place] [address], [place] [address] Oct, [facility] [address] [id number] [address] [place] [address], [place] [address] Oct, [facility] [address] [id number] [address] [place] [address], [place] [address] Oct, [facility] [address] [id number] [address] [place] [address], [place] [address] Oct, [facility] [address] [id number] [address] [place] [address] 18 Oct, 2013 [facility] [address] [id number] [address] [place] [address], [place] [address] 18 Oct, 2013 [facility] [address] [id number] [address] [place] [address], [place] [address] 17 Oct, 2013 [facility] [address] [id number] [address] [place] [address], [place] [address] 17 Oct, 2013 [facility] [address] [id number] [address] [place] [address], [place] [address] 03 Oct, 2013 [facility] [address] [id number] [address] [place] [address], [place] [address] 03 Oct, 2013 [facility] [address] [id number] [address] [place] [address], [place] [address] 02 Oct, 2013 [facility] [address] [id number] [address] [place] [address], [place] [address] 02 Oct, 2013 [facility] [address] [id number] [address] [place] [address], [place] [address] 14 Sep, 2013 [facility] [address] [id number] [address] [place] [address], [place] [address] 14 Sep, 2013 [facility] [address] [id number] [address] [place] [address], [place] [address] 05 Sep, 2013 [facility] [address] [id number] [address] [place] [address], [place] [address] 05 Sep, 2013 [facility] [address] [id number] [address] [place] [address] Sep, [facility] [address] [id number] [address] [place] [address] Sep, [facility] [address] [id number] [address] [place] [address], [place] [address] 04 Sep, 2013 [facility] [address] [id number] [address] [place] [address] 04 Sep, 2013 [facility] [address] [id number] [address] [place] [address], [place] [address] Sep, [facility] [address] [id number] [address] [place] [address], [place] [address] Sep, [facility] [address] [id number] [address] [place] [address], [place] [address] Aug, [facility] [address] [id number] [address] [place] [address], [place] [address] Aug, [facility] [address] [id number] [address] [place] [address], [place] [address] Aug, [facility] [address] [id number] [address] [place] [address], [place] [address] Aug, [facility] [address] [id number] [address] [place] [address], [place] [address] Aug, [facility] [address] [id number] [address] [place] [address], [place] [address] Aug, [facility] [address] [id number] [address] [place] [address], [place] [address] Aug, [facility] [address] [id number] [address] [place] [address], [place] [address] Aug, [facility] [address] [id number] [address] [place] [address], [place] [address] Aug, [facility] [address] [id number] [address] [place] [address], [place] [address] Aug, [facility] [address] [id number] [address] [place] [address], [place] [address] Aug, [facility] [address] [id number] [address] [place] [address], [place] [address] Aug, [facility] [address] [id number] [address] [place] [address], [place] [address] Aug, [facility] [address] [id number] [address] [place] [address] [address] 18 Aug, 2013 [facility] [address] [id number] [address] [place] [address], [place] [address] 17 Aug, 2013 [facility] [address] [id number] [address] [place] [address], [place] [address] 14 Aug, 2013 [facility] [address] [id number] [address] [place] [address], [place] [address] 14 Aug, 2013 [facility] [address] [id number] [address] [place] [address], [place] [address] Aug, [facility] [address] [id number] [address] [place] [address], [place] [address] 20 Jul, 2013 [facility] [address] [id number] [address] [place] [address], [place] [address] 19 Jul, 2013 [facility] [address] [id number] [address] [place] [address], [place] [address] 18 Jul, 2013 [facility] [address] [id number] [address] [place] [address], [place] [address] 11 Jul, 2013 [facility] [address] [id number] [address] [place] [address], [place] [address] 11 Jul, 2013 [facility] [address] [id number] [address] [place] [address], [place] [address] 28 Jun, 2013 [facility] [address] [id number] [address] [place] [address], [place] [address] Jun, [facility] [address] [id number] [address] [place] [address], [place] [address] Jun, [facility] [address] [id number] [address] [place] [address], [place] [address] 15 Jun, 2013 [facility] [address] [id number] [address] [place] [address], [place] [address] 14 Jun, 2013 [facility] [address] [id number] [address] [place] [address], [place] [address] Jun, [facility] [address] [id number] [address] [place] [address], [place] [address] Jun, [facility] [address] [id number] [address] [place] [address], [place] [address] Jun, [facility] [address] [id number] [address] [place] [address], [place] [address] Jun, [facility] [address] [id number] [address] [place] [address], [place] [address] Jun, [facility] [address] [id number] [address] [place] [address], [place] [address] May, [facility] [address] [id number] [address] [place] [address], [place] [address] May, [facility] [address] [id number] [address] [place] [address], [place] [address] May, [facility] [address] [id number] [address] [place] [address], [place] [address] May, [facility] [address] [id number] [address] [place] [address], [place] [address] May, [facility] [address] [id number] [address] [place] [address], [place] [address] May, [facility] [address] [id number] [address] [place] [address], [place] [address] May, [facility] [address] [id number] [address] [place] [address], [place] [address] May, [facility] [address] [id number] [address] [place] [address], [place] [address] May, [facility] [address] [id number] [address] [place] [address], [place] [address] Apr, [facility] [address] [id number] [address] [place] [address], [place] [address] Apr, [facility] [address] [id number] [address] [place] [address], [place] [address] Apr, [facility] [address] [id number] [address] [place] [address], [place] [address] Apr, [facility] [address] [id number] [address] [place] [address], [place] [address] Apr, [facility] [address] [id number] [address] [place] [address], [place] [address] Apr, [facility] [address] [id number] [address] [place] [address], [place] [address] Apr, [facility] [address] [id number] [address] [place] [address], [place] [address] March, [facility] [address] [id number] [address] [place] [address], [place] [address] Feb, [facility] [address] [id number] [address] [place] [address], [place] [address] Feb, [facility] [address] [id number] [address] [place] [address], [place] [address] Feb, [facility] [address] [id number] [address] [place] [address], [place] [address] Jan, [facility] [address] [id number] [address] [place] [address], [place] [address] Jan, [facility] [address] [id number] [address] [place] [address], [place] [address] Jan, [facility] [address] [id number] [address] [place] [address], [place] [address] 14 Jan, 2013 [facility] [address] [id number] [address] [place] [address], [place] [address] 12 Jan, 2013 [facility] [address] [id number] [address] [place] [address], [place] [address] 08 Jan, 2013 [facility] [address] [id number] [address] [place] [address], [place] [address] 07 Jan, 2013 [facility] [address] [id number] [address] [place] [address], [place] [address] Jan, [facility] [address] [id number] [address] [place] [address], [place] [address] 28 Dec, 2012 [facility] [address] [id number] [address] [place] [address], [place] [address] 25 Dec, 2012 [facility] [address] [id number] [address] [place] [address], [place] [address] 13 Dec, 2012 [facility] [address] [id number] [address] [place] [address], [place] [address] 11 Dec, 2012 [facility] [address] [id number] [address] [place] [address], [place] [address] 07 Dec, 2012 [facility] [address] [id number] [address] [place] [address], [place] [address] 06 Dec, 2012 [facility] [address] [id number] [address] [place] [address], [place] [address] 05 Dec, 2012 [facility] [address] [id number] [address] [place] [address], [place] [address] Nov, [facility] [address] [id number] [address] [place] [address], [place] [address] 24 Nov, 2012 [facility] [address] [id number] [address] [place] [address], [place] [address] Nov, [facility] [address] [id number] [address] [place] [address], [place] [address] 15 Nov, 2012 [facility] [address] [id number] [address] [place] [address], [place] [address] 10 Nov, 2012 [facility] [address] [id number] [address] [place] [address], [place] [address] Nov, [facility] [address] [id number] [address] [place] [address], [place] [address] 02 Nov, 2012 [facility] [address] [id number] [address] [place] [address], [place] [address] Oct, [facility] [address] [id number] [address] [place] [address], [place] [address] Oct, [facility] [address] [id number] [address] [place] [address], [place] [address] Oct, [facility] [address] [id number] [address] [place] [address], [place] [address] Oct, [facility] [address] [id number] [address] [place] [address], [place] [address] Oct, [facility] [address] [id number] [address] [place] [address], [place] [address] Oct, [facility] [address] [id number] [address] [place] [address], [place] [address] Oct, [facility] [address] [id number] [address] [place] [address], [place] [address] Oct, [facility] [address] [id number] [address] [place] [address], [place] [address] Oct, [facility] [address] [id number] [address] [place] [address], [place] [address] Oct, [facility] [address] [id number] [address] [place] [address], [place] [address] Oct, [facility] [address] [id number] [address] [place] [address], [place] [address] Oct, [facility] [address] [id number] [address] [place] [address], [place] [address] Sep, [facility] [address] [id number] [address] [place] [address], [place] [address] Sep, [facility] [address] [id number] [address] [place] [address], [place] [address] Sep, [facility] [address] [id number] [address] [place] [address], [place] [address] Sep, [facility] [address] [id number] [place] [address] Sep, [facility] [address] [id number] [address] [place] [address], [place] [address] Sep, [facility] [address] [id number] [address] [place] [address] Sep, [facility] [address] [id number] [address] [place] [address] Sep, [facility] [address] [id number] [address] [place] [address] Sep, [facility] [address] [id number] [address] [place] [address], [place] [address] Sep, [facility] [address] [id number] [address] [place] [address] Sep, [facility] [address] [id number] [address] [place] [address] Aug, [facility] [address] [id number] [address] [place] [address] Aug, [facility] [address] [id number] [address] [place] [address] Aug, [facility] [address] [id number] [address] [place] [address] Aug, [facility] [address] [id number] [address] [place] [address] Aug, [facility] [address] [id number] [address] [place] [address] Aug, [facility] [address] [id number] [address] [place] [address] Aug, [facility] [address] [id number] [address] [place] [address] Aug, [facility] [address] [id number] [address] [place] [address] Aug, [facility] [address] [id number] [address] [place] [address], [place] [address] Aug, [facility] [address] [id number] [address] [place] [address], [place] [address] Jul, [facility] [address] [id number] [address] [place] [address], [place] [address] Jul, [facility] [address] [id number] [address] [place] [address], [place] [address] Jul, [facility] [address] [id number] [address] [place] [address], [place] [address] Jul, [facility] [address] [id number] [address] [place] [address], [place] [address] Jun, [facility] [address] [id number] [address] [place] [address], [place] [address] Jun, [facility] [address] [id number] [address] [place] [address], [place] [address] Jun, [facility] [address] [id number] [address] [place] [address], [place] [address] Jun, [facility] [address] [id number] [address] [place] [address], [place] [address] Jun, [facility] [address] [id number] [address] [place] [address], [place] [address] Jun, [facility] [address] [id number] [address] [place] [address], [place] [address] Jun, [facility] [address] [id number] [address] [place] [address], [place] [address] May, [facility] [address] [id number] [address] [place] [address], [place] [address] May, [facility] [address] [id number] [address] [place] [address], [place] [address] May, [facility] [address] [id number] [address] [place] [address], [place] [address] May, [facility] [address] [id number] [address] [place] [address], [place] [address] May, [facility] [address] [id number] [address] [place] [address], [place] [address] Apr, [facility] [address] [id number] [address] [place] [address], [place] [address] Apr, [facility] [address] [id number] [address] [place] [address], [place] [address] Apr, [facility] [address] [id number] [address] [place] [address], [place] [address] Apr, [facility] [address] [id number] [address] [place] [address], [place] [address] Apr, [facility] [address] [id number] [address] [place] [address], [place] [address] March, [facility] [address] [id number] [address] [place] [address], [place] [address] March, [facility] [address] [id number] [address] [place] [address], [place] [address] March, [facility] [address] [id number] [address] [place] [address], [place] [address] March, [facility] [address] [id number] [address] [place] [address], [place] [address] March, [facility] [address] [id number] [address] [place] [address], [place] [address] March, [facility] [address] [id number] [address] [place] [address], [place] [address] March, [facility] [address] [id number] [address] [place] [address], [place] [address] March, [facility] [address] [id number] [address] [place] [address], [place] [address] March, [facility] [address] [id number] [address] [place] [address], [place] [address] March, [facility] [address] [id number] [address] [place] [address], [place] [address] 30 Feb, 2012 [facility] [address] [id number] [address] [place] [address], [place] [address] Feb, [facility] [address] [id number] [address] [place] [address], [place] [address] Feb, [facility] [address] [id number] [address] [place] [address], [place] [address] Feb, [facility] [address] [id number] [address] [place] [address], [place] [address] Feb, [facility] [address] [id number] [address] [place] [address], [place] [address] Feb, [facility] [address] [id number] [address] [place] [address], [place] [address] Feb, [facility] [address] [id number] [address] [place] [address], [place] [address] Feb, [facility] [address] [id number] [address] [place] [address], [place] [address] Feb, [facility] [address] [id number] [address] [place] [address], [place] [address] Jan, [facility] [address] [id number] [address] [place] [address], [place] [address] Jan, [facility] [address] [id number] [address] [place] [address], [place] [address] 05 Jan, 2012 [facility] [address] [id number] [address] [place] [address], [place] [address] Jan, [facility] [address] [id number] [address] [place] [address], [place] [address] Dec, [facility] [address] [id number] [address] [place] [address], [place] [address] Dec, [facility] [address] [id number] [address] [place] [address] Nov, [facility] [address] [id number] [address] [place] [address] Nov, [facility] [address] [id number] [address] [place] [address] Nov, [facility] [address] [id number] [address] [place] [phone] Nov, [facility] [address] [id number] [address] [place] [phone] Nov, [facility] [address] [id number] [address] [place] [phone] Oct, [facility] [address] [id number] [address] [place] [phone] Oct, [facility] [address] [id number] [address] [place] [phone] Oct, [facility] [address] [id number] [address] [place] [phone] Oct, [facility] [address] [id number] [address] [place] [phone] Oct, [facility] [address] [id number] [address] [place] [phone] Oct, [facility] [address] [id number] [address] [place] [id number] Oct, [facility] [address] [id number] [address] [place] [phone] Oct, [facility] [address] [id number] [address] [place] [phone] Sep, IMMUNIZATIONS No Known Immunizations SOCIAL HISTORY Never Assessed REASON FOR VISIT PLAN OF CARE VITAL SIGNS MEDICATIONS Unknown Medications RESULTS No Results PROCEDURES No Known procedures INSTRUCTIONS MEDICATIONS ADMINISTERED No Known Medications MEDICAL (GENERAL) HISTORY Type Description Date 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
--- OUTSIDE RECORDS SUMMARY | 2020-06-18 15:14 | XMS REPORT ---
Author Author Loi JOHNSONothy SHARIF [facility] Address [address] [place] [address] Care Team Providers Care Credit Interviewer Name Role Phone ELIZABETHROYASHARIF Unavailable PROBLEMS Type Condition ICD9-CM Code QYX19-FG Code Onset Dates Condition S tatus SNOMED Code Problem Coronary artery disease I25.10 Active 17706248 Problem Hypertension I10 Active 3987102 3 Problem Other chronic pain G89.29 Active 8 6745592 Problem Hyperlipidemia E78.5 Active 45339 004 Problem Type 2 diabetes mellitus wit hout complication, without long-term current use of insulin E11.9 Active 208567583 Problem Low back pain M54.5 Active 648052 009 Problem Pharyngeal dysphagia R13.13 Active 27325137931057 Problem Anxiety F41.9 Active 66618558 Problem Peripheral vascular disease I73.9 Ac tive 585875417 Problem Suprapubic catheter Z93.59 Active 790174958 Problem Reactive depression F32.9 Active 40135185 Problem Neurogenic bladder N31.9 Active 3 09163101 Problem Ventral hernia without obstruction or gangrene K43 .9 Active 980595104 Problem Insomnia G47.00 Active 215210813 Problem Paroxysmal atrial fibrillation I48.0 Active 888909420 Problem Postmenopausal atrophic vaginitis N95.2 Active 55332635 Problem Encounter for suprapubic catheter care Z43.5 Active 485824857 ALLERGIES No Information ENCOUNTERS Encounter Location Date Diagnosis [facility] [address] [id number] [address] [place] [phone] Jun, Strain of right shoulder, scherer bsequent encounter S46.911D [facility] [address] [id number] [address] [place] [address] Jun, Anxiety F41.9 [facility] [address] [place] [id number] Jun, Neurogenic bladder N31.9 and Anxiety F41 .9 [facility] [address] [place] [id number] May, Anxiety F41.9 [place] [address] [id number] [address] [place] [address] May, Dysuria R30.0 [place] [address] [id number] [address] [place] [address] May, Strain of right shoulder, scherer bsequent encounter S46.911D and Anxiety F41.9 [place] [address] [id number] [address] [place] [address] Apr, Via [facility] [email or web address] [address] [place] [id number] Apr, Strain of right shoulder, subsequent enc ounter S46.911D [place] [address] [id number] [address] [place] [id number] 14 Apr, 2019 Strain of right shoulder, scherer bsequent encounter S46.911D and Anxiety F41.9 [facility] [address] [place] [id number] 13 Apr, 2019 Type 2 diabetes mellitus without complic ation, without long-term current use of insulin E11.9 and Neurogenic bladder N31.9 [facility] [address] [place] [id number] 11 Apr, 2019 Strain of right shoulder, subsequent enc ounter S46.911D ; History of GI bleed Z87.19 ; Neurogenic bladder N31.9 and Reactive depression F32.9 [place] [address] [id number] [address] [place] [address] 10 Apr, 2019 Acute pain of left shoulder M25.512 [place] [address] [id number] [address] [place] [id number] 07 Apr, 2019 [place] [address] [id number] [address] [place] [id number] 06 Apr, 2019 Anxiety F41.9 and 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 [facility] [address] [place] [id number] March, Gastrointestinal hemorrhage associated w ith acute gastritis K29.01 [facility] [address] [id number] [address] [place] [id number] March, [facility] [address] [place] [id number] March, Bronchitis J40 [facility] [address] [id number] [address] [place] [id number] March, Cough R05 [facility] [address] [id number] [address] [place] [address] March, Other chronic pain G89.29 [facility] [address] [id number] [address] [place] [id number] March, Anxiety F41.9 [facility] [address] [id number] [address] [place] [id number] March, [facility] [address] [id number] [address] [place] [address] Feb, Other chronic pain G89.29 [facility] [address] [id number] [address] [place] [id number] Feb, Anxiety F41.9 [facility] [address] [id number] [address] [place] [id number] Feb, Other chronic pain G89.29 [facility] [email or web address] [address] [place] [id number] Feb, Neurogenic bladder N31.9 and Suprapubic catheter Z93.59 [facility] [address] [id number] [address] [place] [phone] Jan, Anxiety F41.9 [facility] [address] [id number] [address] [place] [phone] Dec, Anxiety F41.9 [facility] [address] [id number] [address] [place] [address] Dec, Other chronic pain G89.29 an d Anxiety F41.9 [facility] [address] [id number] [address] [place] [id number] Dec, Via [employer] [facility] [address] [place] [id number] Dec, Neurogenic bladder N31.9 and Suprapubic catheter Z93.59 [facility] [address] [id number] [address] [place] [address] Nov, Other chronic pain G89.29 an d Anxiety F41.9 [facility] [address] [id number] [address] [place] [address] Nov, Via [employer] [facility] [address] [place] [id number] Nov, Suprapubic catheter Z93.59 [facility] [address] [id number] [address] [place] [address] Oct, Other chronic pain G89.29 an d Anxiety F41.9 [facility] [address] [id number] [address] [place] [id number] Oct, [facility] [address] [id number] [address] [place] [address] Oct, Suprapubic catheter Z93.59 [facility] [address] [id number] [address] [place] [phone] Oct, [facility] [employer] [facility] [address] [place] [id number] Oct, [facility] [address] [id number] [address] [place] [phone] Oct, Anxiety F41.9 [facility] [address] [id number] [address] [place] [address] Oct, Anxiety F41.9 [facility] [address] [place] [id number] Oct, Other chronic pain G89.29 [facility] [address] [id number] [address] [place] [id number] 14 Sep, 2018 Other chronic pain G89.29 [facility] [employer] [facility] [address] [place] [id number] Sep, Suprapubic catheter Z93.59 and Cervicalg ia M54.2 [facility] [address] [id number] [address] [place] [id number] Sep, [facility] [address] [id number] [address] [place] [phone] Sep, [facility] [address] [id number] [address] [place] [phone] Sep, Via [employer] [address] [place] [id number] Aug, Cystitis N30.90 [facility] [address] [id number] [address] [place] [phone] Aug, [facility] [address] [id number] [address] [place] [id number] Aug, Other chronic pain G89.29 [facility] [address] [id number] [address] [place] [address] Aug, Via [employer] [facility] [address] [place] [id number] Aug, Encounter for suprapubic catheter care Z 43.5 [facility] [address] [id number] [address] [place] [id number] Jul, Via [facility] [employer] [facility] [address] [place] [id number] Jul, [facility] [address] [id number] [address] [place] [id number] Jul, Other chronic pain G89.29 [facility] [address] [id number] [address] [place] [address] Jul, [facility] [address] [id number] [address] [place] [id number] 10 Jul, 2018 [facility] [employer] [address] [place] [id number] Jun, Postmenopausal atrophic vaginitis N95.2 [facility] [address] [id number] [address] [place] [id number] 17 Jun, 2018 Other chronic pain G89.29 [facility] [address] [id number] [address] [place] [address] Jun, Via [employer] [address] [place] [id number] May, Anxiety F41.9 ; Type 2 diabetes mellitus without complication, without long-term current use of insulin E11.9 ; Hypertension I10 ; Low back pain M54.5 ; Paroxysmal atrial fibrillation I48.0 and 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 [place] [address] [id number] [address] [place] [address] May, Other chronic pain G89.29 [facility] [employer] [address] [place] [id number] May, Low back pain M54.5 [place] [address] [id number] [address] [place] [id number] May, [facility] [address] [id number] [address] [place] [address] Apr, Other chronic pain G89.29 [place] [address] [id number] [address] [place] [address] Apr, [place] [address] [id number] [address] [place] [id number] Apr, Via [employer] [address] [place] [id number] Apr, Closed compression fracture of L3 lumbar vertebra with routine healing, subsequent encounter S32.030D [facility] [employer] [address] [place] [id number] Apr, Low back pain M54.5 [facility] [employer] [address] [place] [id number] Apr, Coccydynia M53.3 [facility] [address] [id number] [address] [place] [phone] March, [facility] [address] [id number] [address] [place] [phone] March, Other chronic pain G89.29 [facility] [address] [id number] [address] [place] [id number] March, [facility] [address] [id number] [address] [place] [phone] March, [facility] [address] [id number] [address] [place] [phone] Feb, [facility] [address] [id number] [address] [place] [id number] Feb, Other chronic pain G89.29 [facility] [employer] [facility] [address] [place] [id number] Feb, Other chronic pain G89.29 and Anxiety F4 1.9 [facility] [address] [id number] [address] [place] [address] Feb, [facility] [address] [id number] [address] [place] [id number] Jan, [facility] [address] [id number] [address] [place] [phone] Jan, [facility] [address] [id number] [address] [place] [phone] Jan, [facility] [address] [id number] [address] [place] [phone] Jan, [facility] [address] [id number] [address] [place] [id number] Dec, [facility] [employer] [facility] [address] [place] [id number] Dec, Peripheral vascular disease I73.9 ; 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 ADRIENNE SANCHEZ [id number] [place] [address] Nov, [facility] [address] [id number] [place] [id number] Nov, Anxiety F41.9 [facility] [address] [id number] [address] [place] [phone] Nov, [place] [address] [id number] [place] [id number] Nov, Anxiety F41.9 [email or web address] [address] [place] [id number] Nov, Status post surgery Z98.890 ; Confused R 41.0 ; Anxiety F41.9 and Other chronic pain G89.29 [place] [address] [id number] [place] [id number] Nov, Other chronic pain G89.29 [place] [address] [facility] [id number] [address] [place] [phone] Oct, [place] [address] [id number] [place] [id number] Oct, Other chronic pain G89.29 [place] [address] [facility] [id number] [address] [place] [address] Oct, Anxiety F41.9 [place] [address] [id number] [place] [id number] Sep, Other chronic pain G89.29 [place] [address] [id number] [place] [id number] Sep, Via [employer] [address] [place] [id number] Aug, Dysuria R30.0 and Anxiety F41.9 [facility] [address] [id number] [address] [place] [address] Aug, [facility] [address] [id number] [place] [facility] [place] [id number] Aug, Other chronic pain G89.29 [facility] [address] [id number] [address] [place] [id number] Jul, Other chronic pain G89.29 [facility] [address] [id number] [place] [id number] Jun, [facility] [address] [id number] [place] [id number] Jun, Other chronic pain G89.29 [facility] [address] [id number] [address] [place] [id number] Jun, [facility] [address] [id number] [address] [place] [address] May, Other chronic pain G89.29 [facility] [address] [id number] [address] [place] [address] Apr, Other chronic pain G89.29 [facility] [address] [place] [facility] [place] [id number] Apr, Reactive depression F32.9 and Pharyngeal dysphagia R13.13 [facility] [address] [id number] [address] [place] [phone] Apr, Urinary tract infection with out hematuria, site unspecified N39.0 [facility] [address] [id number] [address] [place] [address] March, Other chronic pain G89.29 [facility] [address] [id number] [address] [place] [address] Feb, Other chronic pain G89.29 [facility] [address] [facility] [id number] [address] [place] [phone] Feb, [facility] [address] [id number] [place] [id number] Feb, [facility] [place] [email or web address] [address] [place] [id number] Feb, Dysuria R30.0 and Ventral hernia without obstruction or gangrene K43.9 [facility] [address] [id number] [address] [place] [address] Jan, Other chronic pain G89.29 [facility] [address] [id number] [place] [id number] Dec, Other chronic pain G89.29 [facility] [address] [id number] [address] [place] [address] Nov, Other chronic pain G89.29 [facility] [address] [place] [id number] Nov, Lymphadenitis I88.9 [facility] [address] [id number] [address] [place] [address] Nov, Other chronic pain G89.29 [facility] [address] [id number] [address] [place] [id number] Nov, [facility] [address] [id number] [place] [id number] Nov, Other chronic pain G89.29 [facility] [place] [email or web address] [address] [place] [id number] Oct, Low back pain M54.5 ; Hypertension I10 a nd Type 2 diabetes mellitus without complication, without long-term current use of insulin E11.9 [facility] [address] [id number] [address] [place] [id number] Oct, [facility] [address] [id number] [address] [place] [id number] Oct, [facility] [address] [id number] [address] [place] [phone] Oct, [facility] [address] [id number] [address] [place] [phone] Oct, [facility] [address] [id number] [address] [place] [phone] Sep, [facility] [address] [id number] [address] [place] [address] Sep, [facility] [address] [id number] [address] [place] [id number] Aug, Other chronic pain G89.29 [facility] [address] [id number] [address] [place] [address] Jul, [facility] [address] [id number] [address] [place] [id number] Jul, [facility] [address] [id number] [address] [place] [id number] Jul, [facility] [address] [id number] [address] [place] [id number] Jun, [facility] [address] [id number] [address] [place] [address] Jun, [facility] [address] [place] [id number] Jun, Low back pain M54.5 ; Other chronic pain G89.29 and Coronary artery disease I25.10 [facility] [address] [id number] [address] [place] [address] Jun, [facility] [address] [id number] [address] [place] [address] May, [facility] [address] [id number] [address] [place] [address] May, [facility] [address] [id number] [address] [place] [address] May, Other chronic pain G89.29 [facility] [address] [id number] [address] [place] [id number] May, [facility] [address] [id number] [address] [place] [phone] Apr, [facility] [address] [id number] [address] [place] [address] 17 Apr, 2016 Acute cystitis without hemat uria N30.00 [facility] [address] [id number] [address] [place] [id number] 16 Apr, 2016 Acute cystitis without hemat uria N30.00 ; Coronary artery disease I25.10 ; Low back pain M54.5 and Other chronic pain G89.29 [facility] [address] [id number] [address] [place] [address] Apr, Other chronic pain G89.29 [facility] [address] [id number] [address] [place] [address] March, Other chronic pain G89.29 [facility] [address] [id number] [address] [place] [address] Feb, [facility] [address] [id number] [address] [place] [address] Feb, Arthritis M19.90 [facility] [address] [id number] [address] [place] [id number] Feb, [facility] [address] [id number] [address] [place] [phone] Jan, [facility] [address] [id number] [address] [place] [address] Jan, [facility] [address] [id number] [address] [place] [id number] Jan, Other chronic pain G89.29 [facility] [address] [id number] [address] [place] [id number] Jan, Hypertension I10 ; Coronary artery disease I25.10 and Insomnia G47.00 [facility] [address] [id number] [address] [place] [id number] Jan, [facility] [address] [id number] [address] [place] [address] Dec, Right hip pain M25.551 [facility] [address] [id number] [address] [place] [id number] Dec, [facility] [address] [id number] [address] [place] [phone] Dec, [facility] [address] [id number] [address] [place] [address] Dec, [facility] [address] [id number] [address] [place] [phone] Dec, Other chronic pain G89.29 [facility] [address] [id number] [address] [place] [id number] Dec, [facility] [address] [id number] [address] [place] [address] Nov, [facility] [address] [id number] [address] [place] [address] Nov, Other chronic pain G89.29 [facility] [address] [id number] [address] [place] [address] Nov, Right hip pain M25.551 and C oronary artery disease I25.10 [facility] [address] [id number] [address] [place] [address] Nov, Other chronic pain G89.29 [facility] [address] [id number] [address] [place] [phone] Oct, [facility] [address] [id number] [address] [place] [id number] Oct, [facility] [address] [id number] [address] [place] [phone] Sep, [facility] [address] [id number] [address] [place] [id number] Sep, [facility] [address] [id number] [address] [place] [id number] Aug, [facility] [address] [id number] [address] [place] [phone] Aug, Hypertension I10 ; Coronary artery disease I25.10 and Arthritis M19.90 [facility] [address] [id number] [address] [place] [id number] Jun, [facility] [address] [id number] [address] [place] [id number] Jun, Essential hypertension, jayson gn 401.1 ; Other chronic pain 338.29 and Chronic airway obstruction, not elsewhere classified 496 [facility] [address] [id number] [address] [place] [id number] Jun, [facility] [address] [id number] [address] [place] [phone] Jun, [facility] [address] [id number] [address] [place] [phone] Jun, [facility] [address] [id number] [address] [place] [id number] May, [facility] [address] [id number] [address] [place] [phone] May, [facility] [address] [id number] [address] [place] [id number] Apr, [facility] [address] [id number] [address] [place] [phone] Apr, [facility] [address] [id number] [address] [place] [phone] Apr, [facility] [address] [id number] [address] [place] [id number] March, [facility] [address] [id number] [address] [place] [id number] March, [facility] [address] [id number] [address] [place] [address], [place] [phone] March, [facility] [address] [id number] [address] [place] [address], [place] [id number] March, [facility] [address] [id number] [address] [place] [address], [place] [id number] March, Sialadenitis 527.2 [facility] [address] [id number] [address] [place] [address], [place] [id number] Feb, [facility] [address] [id number] [address] [place] [address], [place] [id number] Feb, [facility] [address] [address] [id number] [address] [place] [address], [place] [address] Feb, [facility] [address] [id number] [address] [place] [address], [place] [address] Feb, [facility] [address] [id number] [address] [place] [address] Feb, [facility] [address] [id number] [address] [place] [address], [place] [address] Jan, [facility] [address] [id number] [address] [place] [address] Jan, [facility] [address] [id number] [address] [place] [address] Jan, [facility] [address] [id number] [address] [place] [address] Jan, [facility] [address] [id number] [address] [place] [address], [place] [address] Jan, [facility] [address] [id number] [address] [place] [address] Jan, [facility] [address] [id number] [address] [place] [address] Dec, [facility] [address] [id number] [address] [place] [address] Dec, [facility] [address] [id number] [address] [place] [address], [place] [address] Dec, [facility] [address] [id number] [address] [place] [address], [place] [address] Dec, [facility] [address] [id number] [address] [place] [address], [place] [address] Dec, [facility] [address] [id number] [address] [place] [address], [place] [address] Dec, [facility] [address] [id number] [address] [place] [address], [place] [address] Nov, [facility] [address] [id number] [address] [place] [address], [place] [address] Nov, [facility] [address] [id number] [address] [place] [address], [place] [address] Nov, [facility] [address] [id number] [address] [place] [address], [place] [address] Nov, [facility] [address] [id number] [address] [place] [address], [place] [address] Nov, [facility] [address] [id number] [address] [place] [address], [place] [address] Nov, [facility] [address] [id number] [address] [place] [address], [place] [address] Nov, [facility] [address] [id number] [address] [place] [address], [place] [address] Nov, [facility] [address] [id number] [address] [place] [address], [place] [address] Nov, [facility] [address] [id number] [address] [place] [address], [place] [address] Nov, [facility] [address] [id number] [address] [place] [address], [place] [address] Nov, [facility] [address] [id number] [address] [place] [address], [place] [address] Nov, [facility] [address] [id number] [address] [place] [address], [place] [address] Nov, [facility] [address] [id number] [address] [place] [address], [place] [address] Nov, [facility] [address] [id number] [address] [place] [address], [place] [address] Oct, [facility] [address] [id number] [address] [place] [address], [place] [address] Oct, [facility] [address] [id number] [address] [place] [address] [address] Oct, [facility] [address] [id number] [address] [place] [address], [place] [address] Oct, [facility] [address] [id number] [address] [place] [address], [place] [address] Oct, [facility] [address] [id number] [address] [place] [address], [place] [address] Oct, [facility] [address] [id number] [address] [place] [address], [place] [address] Oct, [facility] [address] [id number] [address] [place] [address], [place] [address] Oct, [facility] [address] [id number] [address] [place] [address], [place] [address] Oct, [facility] [address] [id number] [address] [place] [address], [place] [address] Sep, [facility] [address] [id number] [address] [place] [address], [place] [address] Sep, [facility] [address] [id number] [address] [place] [address], [place] [address] Sep, [facility] [address] [id number] [address] [place] [address] Sep, [facility] [place] [facility] [address] [id number] [address] [place] [address], [place] [address] Sep, [facility] [place] [facility] [address] [id number] [address] [place] [address], [place] [address] Sep, [facility] [place] [facility] [address] [id number] [address] [place] [address], [place] [address] Sep, [facility] [place] [facility] [address] [id number] [address] [place] [address], [place] [address] Sep, [facility] [place] [facility] [address] [id number] [address] [place] [address], [place] [address] Sep, [facility] [place] [facility] [address] [id number] [address] [place] [address], [place] [address] Sep, [facility] [place] [facility] [address] [id number] [address] [place] [address], [place] [address] Sep, [facility] [place] [facility] [address] [id number] [address] [place] [address], [place] [address] Sep, [facility] [place] [facility] [address] [id number] [address] [place] [address], [place] [address] Aug, [facility] [place] [facility] [address] [id number] [address] [place] [address], [place] [address] Aug, [facility] [place] [facility] [address] [id number] [address] [place] [address] Aug, [facility] [place] [facility] [address] [id number] [address] [place] [address] Aug, [facility] [place] [facility] [address] [id number] [address] [place] [address], [place] [address] Aug, [facility] [place] [facility] [address] [id number] [address] [place] [address], [place] [address] Aug, [facility] [place] [facility] [address] [id number] [address] [place] [address], [place] [address] Aug, [facility] [place] [facility] [address] [id number] [facility] [place] [address] 17 Aug, 2013 [facility] [address] [id number] [address] [place] [address], [place] [address] 30 Jul, 2013 [facility] [place] [facility] [address] [id number] [address] [place] [address], [place] [address] 30 Jul, 2013 [facility] [address] [id number] [address] [place] [address], [place] [address] 30 Jul, 2013 [facility] [address] [id number] [address] [place] [address], [place] [address] 30 Jul, 2013 [facility] [address] [id number] [address] [place] [address], [place] [address] 25 Jul, 2013 [facility] [address] [id number] [address] [place] [address], [place] [address] 25 Jul, 2013 [facility] [address] [id number] [address] [place] [address], [place] [address] 15 Jul, 2013 [facility] [address] [id number] [address] [place] [address], [place] [address] 15 Jul, 2013 [facility] [address] [id number] [address] [place] [address], [place] [address] 11 Jul, 2013 [facility] [address] [id number] [address] [place] [address], [place] [address] 11 Jul, 2013 [facility] [facility] [address] [id number] [address] [place] [address], [place] [address] Jun, [facility] [address] [id number] [address] [place] [address], [place] [address] Jun, [facility] [place] [facility] [address] [id number] [address] [place] [address], [place] [address] Jun, [facility] [address] [id number] [address] [place] [address], [place] [address] Jun, [facility] [address] [id number] [address] [place] [address], [place] [address] Jun, [facility] [place] [facility] [address] [id number] [facility] [place] [address] Jun, [facility] [place] [facility] [address] [id number] [facility] [place] [address] Jun, [facility] [place] [facility] [address] [id number] [facility] [place] [address] Jun, [facility] [place] [facility] [address] [id number] [address] [place] [address], [place] [address] Jun, [facility] [place] [facility] [address] [id number] [address] [place] [address], [place] [address] Jun, [facility] [place] [facility] [address] [id number] [address] [place] [address], [place] [address] Jun, [facility] [place] [facility] [address] [id number] [address] [place] [address], [place] [address] Jun, [facility] [place] [facility] [address] [id number] [address] [place] [address], [place] [address] Jun, [facility] [place] [facility] [address] [id number] [address] [place] [address], [place] [address] Jun, [facility] [place] [facility] [address] [id number] [address] [place] [address], [place] [address] Jun, [facility] [place] [facility] [address] [id number] [address] [place] [address], [place] [address] Jun, [facility] [place] [facility] [address] [id number] [address] [place] [address], [place] [address] Jun, [facility] [place] [facility] [address] [id number] [address] [place] [address], [place] [address] Jun, [facility] [place] [facility] [address] [id number] [address] [place] [address], [place] [address] Jun, [facility] [place] [facility] [address] [id number] [address] [place] [address], [place] [address] Jun, [facility] [place] [facility] [address] [id number] [address] [place] [address], [place] [address] Jun, [facility] [address] [id number] [address] [place] [address], [place] [address] Jun, [facility] [place] [facility] [address] [id number] [address] [place] [address], [place] [address] May, [facility] [place] [facility] [address] [id number] [address] [place] [address], [place] [address] May, [facility] [place] [facility] [address] [id number] [address] [place] [address], [place] [address] May, [facility] [address] [id number] [address] [place] [address], [place] [address] May, [facility] [address] [id number] [address] [place] [address], [place] [address] May, [facility] [address] [id number] [address] [place] [address], [place] [address] May, [facility] [address] [id number] [address] [place] [address], [place] [address] May, [facility] [address] [id number] [address] [place] [address], [place] [address] May, [facility] [address] [id number] [address] [place] [address], [place] [address] May, [facility] [address] [id number] [address] [place] [address], [place] [address] May, [facility] [place] [address] [id number] [address] [place] [address], [place] [address] May, [facility] [place] [address] [id number] [address] [place] [address], [place] [address] May, [facility] [place] [address] [id number] [address] [place] [address], [place] [address] May, [facility] [place] [facility] [address] [id number] [address] [place] [address], [place] [address] Apr, [facility] [place] [facility] [address] [id number] [facility] [place] [address] Apr, [facility] [place] [facility] [address] [id number] [facility] [place] [address] Apr, [facility] [place] [facility] [address] [id number] [facility] [place] [address] Apr, [facility] [place] [facility] [address] [id number] [facility] [place] [address] Apr, [facility] [place] [facility] [address] [id number] [address] [place] [address], [place] [address] Apr, [facility] [place] [facility] [address] [id number] [address] [place] [address], [place] [address] Apr, [facility] [address] [id number] [address] [place] [address], [place] [address] Apr, [facility] [place] [facility] [address] [id number] [address] [place] [address], [place] [address] Apr, [facility] [address] [id number] [address] [place] [address], [place] [address] March, [facility] [place] [facility] [address] [id number] [address] [place] [address], [place] [address] March, [facility] [address] [id number] [address] [place] [address], [place] [address] March, [facility] [place] [facility] [address] [id number] [address] [place] [address], [place] [address] March, [facility] [place] [facility] [address] [id number] [address] [place] [address], [place] [address] March, [facility] [place] [facility] [address] [id number] [address] [place] [address] [address] March, [facility] [place] [facility] [address] [id number] [address] [place] [address], [place] [address] March, [facility] [place] [facility] [address] [id number] [address] [place] [address], [place] [address] March, [facility] [address] [id number] [facility] [place] [address] March, [facility] [address] [id number] [address] [place] [address], [place] [address] March, [facility] [address] [id number] [address] [place] [address], [place] [address] March, [facility] [address] [id number] [address] [place] [address], [place] [address] March, [facility] [address] [id number] [address] [place] [address], [place] [address] March, [facility] [address] [id number] [address] [place] [address], [place] [address] March, [facility] [address] [id number] [address] [place] [address], [place] [address] March, [facility] [address] [id number] [address] [place] [address], [place] [address] March, [facility] [address] [id number] [address] [place] [address], [place] [address] March, [facility] [address] [id number] [address] [place] [address], [place] [address] March, [facility] [address] [id number] [address] [place] [address], [place] [address] March, [facility] [address] [id number] [address] [place] [address], [place] [address] March, [facility] [address] [id number] [address] [place] [address], [place] [address] Feb, [facility] [address] [id number] [address] [place] [address], [place] [address] Feb, [facility] [address] [id number] [address] [place] [address], [place] [address] Feb, [facility] [address] [id number] [facility] [place] [address] 24 Feb, 2014 [facility] [address] [id number] [facility] [place] [address] Feb, [facility] [address] [id number] [facility] [place] [address] Feb, [facility] [address] [id number] [address] [place] [address], [place] [address] Feb, [facility] [address] [id number] [address] [place] [address], [place] [address] Feb, [facility] [address] [id number] [address] [place] [address], [place] [address] Jan, [facility] [address] [id number] [address] [place] [address], [place] [address] Jan, [facility] [address] [id number] [address] [place] [address], [place] [address] Jan, [facility] [address] [id number] [address] [place] [address], [place] [address] Jan, [facility] [address] [id number] [address] [place] [address], [place] [address] Jan, [facility] [address] [id number] [address] [place] [address], [place] [address] Jan, [facility] [address] [id number] [address] [place] [address], [place] [address] Jan, [facility] [address] [id number] [address] [place] [address], [place] [address] Jan, [facility] [address] [id number] [address] [place] [address], [place] [address] Jan, [facility] [address] [id number] [address] [place] [address], [place] [address] Jan, [facility] [address] [id number] [address] [place] [address], [place] [address] Dec, [facility] [place] [facility] [address] [id number] [facility] [place] [address] Dec, [facility] [address] [id number] [address] [place] [address], [place] [address] Dec, [facility] [address] [id number] [facility] [place] [address] Dec, [facility] [address] [id number] [address] [place] [address], [place] [address] Dec, [facility] [address] [id number] [address] [place] [address], [place] [address] Dec, [facility] [address] [id number] [address] [place] [address], [place] [address] Dec, [facility] [address] [id number] [address] [place] [address], [place] [address] Dec, [facility] [address] [id number] [address] [place] [address], [place] [address] Nov, [facility] [address] [id number] [address] [place] [address], [place] [address] Nov, [facility] [address] [id number] [address] [place] [address], [place] [address] Nov, [facility] [address] [id number] [address] [place] [address], [place] [address] Nov, [facility] [place] [facility] [address] [id number] [address] [place] [address], [place] [address] Nov, [facility] [address] [id number] [address] [place] [address], [place] [address] Nov, [facility] [place] [facility] [address] [id number] [address] [place] [address], [place] [address] Nov, [facility] [place] [facility] [address] [id number] [address] [place] [address], [place] [address] Nov, [facility] [address] [id number] [address] [place] [address] Nov, [facility] [address] [id number] [address] [place] [address], [place] [address] Nov, [facility] [address] [id number] [address] [place] [address], [place] [address] Nov, [facility] [address] [id number] [address] [place] [address], [place] [address] Nov, [facility] [address] [id number] [address] [place] [address], [place] [address] Nov, [facility] [address] [id number] [address] [place] [address], [place] [address] Oct, [facility] [address] [id number] [address] [place] [address], [place] [address] Oct, [facility] [address] [id number] [address] [place] [address], [place] [address] Oct, [facility] [address] [id number] [address] [place] [address], [place] [address] Oct, [facility] [address] [id number] [address] [place] [address], [place] [address] Oct, [facility] [address] [id number] [address] [place] [address], [place] [address] Oct, [facility] [address] [id number] [address] [place] [address], [place] [address] 18 Oct, 2013 [facility] [address] [id number] [address] [place] [address], [place] [address] 18 Oct, 2013 [facility] [address] [id number] [address] [place] [address], [place] [address] 17 Oct, 2013 [facility] [address] [id number] [address] [place] [address], [place] [address] 17 Oct, 2013 [facility] [address] [id number] [address] [place] [address], [place] [address] Oct, [facility] [address] [id number] [address] [place] [address], [place] [address] Oct, [facility] [address] [id number] [address] [place] [address], [place] [address] Oct, [facility] [address] [id number] [address] [place] [address], [place] [address] Oct, [facility] [address] [id number] [address] [place] [address], [place] [address] Sep, [facility] [address] [id number] [address] [place] [address], [place] [address] Sep, [facility] [address] [id number] [address] [place] [address], [place] [address] Sep, [facility] [address] [id number] [address] [place] [address], [place] [address] Sep, [facility] [address] [id number] [address] [place] [address], [place] [address] Sep, [facility] [address] [id number] [address] [place] [address], [place] [address] Sep, [facility] [address] [id number] [address] [place] [address], [place] [address] Sep, [facility] [address] [id number] [address] [place] [address], [place] [address] Sep, [facility] [address] [id number] [address] [place] [phone] Sep, [facility] [address] [id number] [address] [place] [address], [place] [address] Sep, [facility] [address] [id number] [address] [place] [address], [place] [address] Aug, [facility] [address] [id number] [address] [place] [phone] Aug, [facility] [address] [id number] [address] [place] [id number] 24 Aug, 2013 [facility] [address] [id number] [address] [place] [address], [place] [address] 24 Aug, 2013 [facility] [address] [id number] [address] [place] [phone] Aug, [facility] [address] [id number] [address] [place] [phone] Aug, [facility] [address] [id number] [address] [place] [phone] Aug, [facility] [address] [id number] [address] [place] [address], [place] [address] Aug, [facility] [address] [id number] [address] [place] [phone] Aug, [facility] [address] [id number] [address] [place] [phone] Aug, [facility] [address] [id number] [address] [place] [phone] 18 Aug, 2013 [facility] [address] [id number] [address] [place] [phone] 18 Aug, 2013 [facility] [address] [id number] [address] [place] [phone] 18 Aug, 2013 [facility] [address] [id number] [address] [place] [phone] 18 Aug, 2013 [facility] [address] [id number] [address] [place] [phone] 17 Aug, 2013 [facility] [address] [id number] [address] [place] [phone] 14 Aug, 2013 [facility] [place] [facility] [address] [id number] [address] [place] [phone] 14 Aug, 2013 [facility] [address] [id number] [address] [place] [phone] Aug, [facility] [place] [facility] [address] [id number] [address] [place] [address], [place] [address] 20 Jul, 2012 [facility] [address] [id number] [address] [place] [address], [place] [address] 19 Jul, 2012 [facility] [address] [id number] [address] [place] [address], [place] [address] 18 Jul, 2013 [facility] [address] [id number] [address] [place] [address], [place] [address] 11 Jul, 2013 [facility] [address] [id number] [address] [place] [address], [place] [address] 11 Jul, 2013 [facility] [address] [id number] [address] [place] [address], [place] [address] Jun, [facility] [address] [id number] [address] [place] [address] [id number] Jun, [facility] [address] [id number] [address] [place] [address], [place] [address] Jun, [facility] [address] [id number] [address] [place] [address], [place] [address] 15 Jun, 2013 [facility] [address] [id number] [address] [place] [address], [place] [address] Jun, [facility] [address] [id number] [address] [place] [address], [place] [address] Jun, [facility] [address] [id number] [address] [place] [address], [place] [address] Jun, [facility] [address] [id number] [address] [place] [address], [place] [address] Jun, [facility] [address] [id number] [address] [place] [address], [place] [address] Jun, [facility] [address] [id number] [address] [place] [address], [place] [address] Jun, [facility] [address] [id number] [address] [place] [address], [place] [address] May, [facility] [address] [id number] [facility] [place] [address] May, [facility] [address] [id number] [address] [place] [address], [place] [address] May, [facility] [address] [id number] [address] [place] [address], [place] [address] May, [facility] [address] [id number] [address] [place] [address], [place] [address] May, [facility] [address] [id number] [address] [place] [address], [place] [address] 16 May, 2013 [facility] [address] [id number] [address] [place] [address], [place] [address] May, [facility] [address] [id number] [address] [place] [address], [place] [address] May, [facility] [address] [id number] [address] [place] [address], [place] [address] May, [facility] [address] [id number] [address] [place] [address], [place] [address] Apr, [facility] [address] [id number] [address] [place] [address], [place] [address] Apr, [facility] [address] [id number] [address] [place] [address], [place] [address] Apr, [facility] [address] [id number] [address] [place] [address], [place] [address] Apr, [facility] [address] [id number] [address] [place] [address], [place] [address] Apr, [facility] [address] [id number] [address] [place] [address], [place] [address] Apr, [facility] [address] [id number] [address] [place] [address], [place] [address] Apr, [facility] [address] [id number] [address] [place] [address], [place] [address] March, [facility] [address] [id number] [address] [place] [address], [place] [address] Feb, [facility] [address] [id number] [address] [place] [address], [place] [address] Feb, [facility] [address] [id number] [address] [place] [address], [place] [address] Feb, [facility] [address] [id number] [address] [place] [address], [place] [address] Jan, [facility] [address] [id number] [address] [place] [address], [place] [address] Jan, [facility] [address] [id number] [address] [place] [address], [place] [address] Jan, [facility] [address] [id number] [address] [place] [address], [place] [address] Jan, [facility] [address] [id number] [address] [place] [address], [place] [address] Jan, [facility] [address] [id number] [address] [place] [address], [place] [address] 08 Jan, 2013 [facility] [address] [id number] [address] [place] [address], [place] [address] Jan, [facility] [address] [id number] [address] [place] [address], [place] [address] Jan, [facility] [address] [id number] [address] [place] [address], [place] [address] 28 Dec, 2012 [facility] [address] [id number] [address] [place] [address], [place] [address] Dec, [facility] [address] [id number] [address] [place] [address], [place] [address] Dec, [facility] [address] [id number] [address] [place] [address], [place] [address] Dec, [facility] [address] [id number] [address] [place] [address], [place] [address] 07 Dec, 2012 [facility] [address] [id number] [address] [place] [address], [place] [address] 06 Dec, 2012 [facility] [address] [id number] [address] [place] [address], [place] [address] 05 Dec, 2012 [facility] [address] [id number] [address] [place] [address], [place] [address] Nov, [facility] [address] [id number] [address] [place] [address], [place] [address] 24 Nov, 2012 [facility] [address] [id number] [address] [place] [address], [place] [address] 18 Nov, 2012 [facility] [address] [id number] [address] [place] [address], [place] [address] 15 Nov, 2012 [facility] [address] [id number] [address] [place] [address], [place] [address] Nov, [facility] [address] [id number] [address] [place] [address], [place] [address] Nov, [facility] [address] [id number] [address] [place] [address], [place] [address] Nov, [facility] [address] [id number] [address] [place] [address], [place] [address] Oct, [facility] [address] [id number] [address] [place] [address], [place] [address] 31 Oct, 2012 [facility] [address] [id number] [address] [place] [address], [place] [address] Oct, [facility] [address] [id number] [address] [place] [address], [place] [address] Oct, [facility] [address] [id number] [address] [place] [address], [place] [address] 17 Oct, 2012 [facility] [address] [id number] [address] [place] [address] Oct, [facility] [address] [id number] [address] [place] [address], [place] [address] Oct, [facility] [address] [id number] [address] [place] [address], [place] [address] Oct, [facility] [address] [id number] [address] [place] [address], [place] [address] Oct, [facility] [address] [id number] [address] [place] [address], [place] [address] Oct, [facility] [address] [id number] [address] [place] [address], [place] [address] Oct, [facility] [address] [id number] [address] [place] [address], [place] [address] Oct, [facility] [address] [id number] [address] [place] [address], [place] [address] Sep, [facility] [address] [id number] [address] [place] [address], [place] [address] Sep, [facility] [address] [id number] [address] [place] [address], [place] [address] Sep, [facility] [address] [id number] [address] [place] [address], [place] [address] Sep, [facility] [address] [id number] [address] [place] [address], [place] [address] Sep, [facility] [address] [id number] [address] [place] [address] Sep, [facility] [address] [id number] [address] [place] [address], [place] [address] Sep, [facility] [address] [id number] [address] [place] [address], [place] [address] Sep, [facility] [address] [id number] [address] [place] [address], [place] [address] Sep, [facility] [address] [id number] [address] [place] [address], [place] [address] Sep, [facility] [address] [id number] [address] [place] [address], [place] [address] Sep, [facility] [address] [id number] [address] [place] [address], [place] [address] Aug, [facility] [address] [id number] [address] [place] [address], [place] [address] Aug, [facility] [address] [id number] [address] [place] [address], [place] [address] Aug, [facility] [address] [id number] [address] [place] [address], [place] [address] Aug, [facility] [address] [id number] [address] [place] [address], [place] [address] Aug, [facility] [address] [id number] [address] [place] [address], [place] [address] Aug, [facility] [address] [id number] [address] [place] [address], [place] [address] Aug, [facility] [address] [id number] [address] [place] [address], [place] [address] Aug, [facility] [address] [id number] [address] [place] [address], [place] [address] Aug, [facility] [address] [id number] [address] [place] [address], [place] [address] Aug, [facility] [address] [id number] [address] [place] [address], [place] [address] 22 Jul, 2012 [facility] [address] [id number] [address] [place] [address], [place] [address] 20 Jul, 2012 [facility] [address] [id number] [address] [place] [address], [place] [address] 10 Jul, 2012 [facility] [address] [id number] [address] [place] [address], [place] [address] Jul, [facility] [address] [id number] [address] [place] [address], [place] [address] Jun, [facility] [address] [id number] [address] [place] [address], [place] [address] Jun, [facility] [address] [id number] [address] [place] [address], [place] [address] Jun, [facility] [address] [id number] [address] [place] [address], [place] [address] Jun, [facility] [address] [id number] [address] [place] [address], [place] [address] Jun, [facility] [address] [id number] [address] [place] [address], [place] [address] Jun, [facility] [address] [id number] [address] [place] [address], [place] [address] Jun, [facility] [address] [id number] [address] [place] [address], [place] [address] May, [facility] [address] [id number] [address] [place] [address], [place] [address] May, [facility] [address] [id number] [address] [place] [address], [place] [address] May, [facility] [address] [id number] [address] [place] [address], [place] [address] May, [facility] [address] [id number] [address] [place] [address], [place] [address] May, [facility] [address] [id number] [address] [place] [address], [place] [address] Apr, [facility] [address] [id number] [address] [place] [address], [place] [address] Apr, [facility] [address] [id number] [address] [place] [address], [place] [address] Apr, [facility] [address] [id number] [address] [place] [address], [place] [address] Apr, [facility] [address] [id number] [address] [place] [address], [place] [address] Apr, [facility] [address] [id number] [address] [place] [address], [place] [address] March, [facility] [address] [id number] [address] [place] [address], [place] [address] March, [facility] [address] [id number] [address] [place] [address], [place] [address] March, [facility] [address] [id number] [address] [place] [address], [place] [address] March, [facility] [address] [id number] [address] [place] [address], [place] [address] March, [facility] [address] [id number] [address] [place] [address], [place] [address] March, [facility] [address] [id number] [address] [place] [address], [place] [address] March, [facility] [address] [id number] [address] [place] [address], [place] [address] March, [facility] [address] [id number] [address] [place] [address], [place] [address] March, [facility] [address] [id number] [address] [place] [address], [place] [address] March, [facility] [address] [id number] [address] [place] [address], [place] [address] Feb, [facility] [address] [id number] [address] [place] [address], [place] [address] Feb, [facility] [address] [id number] [address] [place] [address], [place] [address] Feb, [facility] [address] [id number] [address] [place] [address], [place] [address] Feb, [facility] [address] [id number] [address] [place] [address], [place] [address] Feb, [facility] [address] [id number] [address] [place] [address], [place] [address] Feb, [facility] [address] [id number] [address] [place] [address], [place] [address] Feb, [facility] [address] [id number] [address] [place] [address], [place] [address] Feb, [facility] [address] [id number] [address] [place] [address], [place] [address] Feb, [facility] [address] [id number] [address] [place] [address], [place] [address] Jan, [facility] [address] [id number] [address] [place] [address], [place] [address] Jan, [facility] [address] [id number] [address] [place] [address], [place] [address] Jan, [facility] [address] [id number] [address] [place] [address], [place] [address] Jan, [facility] [address] [id number] [address] [place] [address], [place] [address] Dec, [facility] [address] [id number] [address] [place] [address], [place] [address] Dec, [facility] [address] [id number] [address] [place] [address], [place] [address] Nov, [facility] [address] [id number] [address] [place] [address], [place] [address] Nov, [facility] [address] [id number] [address] [place] [address], [place] [address] Nov, [facility] [address] [id number] [address] [place] [address], [place] [address] Nov, [facility] [address] [id number] [address] [place] [address] Nov, [facility] [address] [id number] [address] [place] [address] Oct, [facility] [address] [id number] [address] [place] [address] Oct, [facility] [address] [id number] [address] [place] [address] Oct, [facility] [address] [id number] [address] [place] [address] Oct, [facility] [address] [id number] [address] [place] [address] Oct, [facility] [address] [id number] [address] [place] [address] Oct, [facility] [address] [id number] [address] [place] [address] Oct, [facility] [address] [id number] [address] [place] [address] Oct, [facility] [address] [id number] [address] [place] [address] Sep, IMMUNIZATIONS Vaccine Route Administration Date Status FLU Vaccine (History) Unknown Sep 15, 2014 Administer ed SOCIAL HISTORY Never Assessed REASON FOR VISIT PLAN OF CARE VITAL SIGNS Height 62 in 2014-09-15 Weight 191.05 lbs 2014-09-15 Temperature 97 degrees Fahrenheit 2014-09-15 Heart Rate 71 bpm 2014-09-15 Respiratory Rate 18 2014-09-15 Blood pressure systolic 175 mmHg 2014-09-15 Blood pressure diastolic 74 mmHg 2014-09-15 MEDICATIONS Unknown Medications RESULTS No Results PROCEDURES Procedure Date Ordered Result Body Site ADMN FLU VAC NO FEE SCHED SAME DAY Sep 15, 2014 ECHO EXAMINATION PROCEDURE Sep 15, 2014 INSTRUCTIONS MEDICATIONS ADMINISTERED No Known Medications MEDICAL (GENERAL) HISTORY Type Description Date Medical History aortic abdominal aneurysm moderate 04/06 18 Medical History illiac aneurysm 03/2018 Surgical History No Surgical history information Hospitalization History [facility]- Urosepsis, ab d pain and fever, discharged 11/27/2017 11/26/2017 Hospitalization History [facility] [place]- Went Unrepsonsive, Hit head 2017 Hospitalization History [facility] [place]- Back Pain 8
--- OUTSIDE RECORDS SUMMARY | 2020-06-18 15:14 | XMS REPORT ---
Author Author Sanjuanita JOHNSON [facility] Address [address] [place] [address] Care Team Providers Care Dray Driver Name Role Phone ELIZABETH SHARIF Unavailable PROBLEMS Type Condition ICD9-CM Code NSI92-ZF Code Onset Dates Condition S tatus SNOMED Code Problem Coronary artery disease I25.10 Active 93401728 Problem Hypertension I10 Active 2677239 3 Problem Other chronic pain G89.29 Active 8 4075708 Problem Hyperlipidemia E78.5 Active 38062 004 Problem Type 2 diabetes mellitus wit hout complication, without long-term current use of insulin E11.9 Active 252040176 Problem Low back pain M54.5 Active 778257 009 Problem Pharyngeal dysphagia R13.13 Active 28368891331534 Problem Anxiety F41.9 Active 28341254 Problem Peripheral vascular disease I73.9 Ac tive 613948209 Problem Suprapubic catheter Z93.59 Active 341854822 Problem Reactive depression F32.9 Active 55831217 Problem Neurogenic bladder N31.9 Active 3 01616055 Problem Ventral hernia without obstruction or gangrene K43 .9 Active 316978385 Problem Insomnia G47.00 Active 736245893 Problem Paroxysmal atrial fibrillation I48.0 Active 899046020 Problem Postmenopausal atrophic vaginitis N95.2 Active 68528910 Problem Encounter for suprapubic catheter care Z43.5 Active 512940582 ALLERGIES No Information ENCOUNTERS Encounter Location Date Diagnosis [facility] [address] [facility] [id number] [address] [place] [phone] Jun, [facility] [address] [facility] [id number] [address] [place] [address] Jun, [facility] [address] [facility] [id number] [address] [place] [phone] Jun, [facility] [address] [facility] [id number] [address] [place] [address] Jun, Strain of right shoulder, scherer bsequent encounter S46.911D [place] [address] [id number] [address] [place], [place] [address] Jun, Strain of right shoulder, scherer bsequent encounter S46.911D [place] [address] [id number] [address] [place] [address] Jun, Anxiety F41.9 [facility] [employer] [address] [place] [id number] Jun, Neurogenic bladder N31.9 and Anxiety F41 .9 [facility] [address] [place] [id number] May, Anxiety F41.9 [place] [address] [id number] [address] [place] [address] May, Dysuria R30.0 [place] [address] [id number] [address] [place] [address] May, Strain of right shoulder, scherer bsequent encounter S46.911D and Anxiety F41.9 [place] [address] [id number] [address] [place] [address] Apr, [facility] [employer] [address] [place] [id number] Apr, Strain of right shoulder, subsequent enc ounter S46.911D [place] [address] [id number] [address] [place] [address] Apr, Strain of right shoulder, scherer bsequent encounter S46.911D and Anxiety F41.9 Via [facility] [employer] [address] [place] [id number] 13 Apr, 2019 Type 2 diabetes mellitus without complic ation, without long-term current use of insulin E11.9 and Neurogenic bladder N31.9 [facility] [address] [place] [id number] Apr, Strain of right shoulder, subsequent enc ounter S46.911D ; History of GI bleed Z87.19 ; Neurogenic bladder N31.9 and Reactive depression F32.9 [facility] [address] [id number] [address] [place] [address] 10 Apr, 2019 Acute pain of left shoulder M25.512 [facility] [address] [id number] [address] [place] [address] Apr, [facility] [address] [id number] [address] [place] [address] Apr, Anxiety F41.9 and 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 [facility] [employer] [address] [place] [id number] March, Gastrointestinal hemorrhage associated w ith acute gastritis K29.01 [facility] [address] [id number] [address] [place] [address] March, [facility] [employer] [address] [place] [id number] March, Bronchitis J40 [facility] [address] [id number] [address] [place] [address] March, Cough R05 [facility] [address] [id number] [address] [place] [address] March, Other chronic pain G89.29 [facility] [address] [id number] [address] [place] [address] March, Anxiety F41.9 [facility] [address] [id number] [address] [place] [address] March, [facility] [address] [id number] [address] [place] [address] Feb, Other chronic pain G89.29 [facility] [address] [id number] [address] [place] [address] Feb, Anxiety F41.9 [facility] [address] [id number] [address] [place] [phone] Feb, Other chronic pain G89.29 [facility] [address] [place] [id number] Feb, Neurogenic bladder N31.9 and Suprapubic catheter Z93.59 [facility] [address] [id number] [address] [place] [address] Jan, Anxiety F41.9 [facility] [address] [id number] [address] [place] [address] Dec, Anxiety F41.9 [facility] [address] [id number] [address] [place] [address] Dec, Other chronic pain G89.29 an d Anxiety F41.9 [facility] [address] [id number] [address] [place] [address] Dec, Via [facility] [employer] [address] [place] [id number] Dec, Neurogenic bladder N31.9 and Suprapubic catheter Z93.59 [facility] [address] [id number] [address] [place] [address] Nov, Other chronic pain G89.29 an d Anxiety F41.9 [facility] [address] [id number] [address] [place] [address] Nov, [facility] [address] [place] [id number] Nov, Suprapubic catheter Z93.59 [facility] [address] [id number] [address] [place] [address] Oct, Other chronic pain G89.29 an d Anxiety F41.9 [facility] [address] [id number] [address] [place] [address] Oct, [facility] [address] [id number] [address] [place] [address] Oct, Suprapubic catheter Z93.59 [facility] [address] [id number] [address] [place] [address] Oct, [facility] [address] [place] [id number] Oct, [facility] [address] [id number] [address] [place] [address] Oct, Anxiety F41.9 [facility] [address] [id number] [address] [place] [address] Oct, Anxiety F41.9 [facility] [address] [place] [id number] Oct, Other chronic pain G89.29 [facility] [address] [id number] [address] [place] [address] Sep, Other chronic pain G89.29 [facility] [address] [place] [id number] Sep, Suprapubic catheter Z93.59 and Cervicalg ia M54.2 [facility] [address] [id number] [address] [place] [phone] Sep, [facility] [address] [id number] [address] [place] [address] Sep, [facility] [address] [id number] [address] [place] [address] Sep, [facility] [address] [place] [id number] Aug, Cystitis N30.90 [facility] [address] [id number] [address] [place] [address] Aug, [facility] [address] [id number] [address] [place] [address] Aug, Other chronic pain G89.29 [facility] [address] [id number] [address] [place] [address] Aug, [facility] [address] [place] [id number] Aug, Encounter for suprapubic catheter care Z 43.5 [facility] [address] [id number] [address] [place] [address] Jul, Via [facility] [address] [place] [id number] Jul, [facility] [address] [id number] [address] [place] [address] Jul, Other chronic pain G89.29 [facility] [address] [id number] [address] [place] [address] Jul, [facility] [address] [id number] [address] [place] [address] Jul, Via [facility] [address] [place] [id number] Jun, Postmenopausal atrophic vaginitis N95.2 [place] [address] [id number] [address] [place] [address] Jun, Other chronic pain G89.29 [facility] [address] [id number] [address] [place] [phone] Jun, Via [facility] [address] [place] [id number] May, Anxiety F41.9 ; Type 2 diabetes mellitus without complication, without long-term current use of insulin E11.9 ; Hypertension I10 ; Low back pain M54.5 ; Paroxysmal atrial fibrillation I48.0 and 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 [place] [address] [id number] [address] [place] [address] May, Other chronic pain G89.29 [facility] [address] [place] [id number] May, Low back pain M54.5 [place] [address] [id number] [address] [place] [address] May, [facility] [address] [id number] [address] [place] [address] Apr, Other chronic pain G89.29 [facility] [address] [id number] [address] [place] [address] Apr, [facility] [address] [id number] [address] [place] [address] Apr, Via [facility] [employer] [address] [place] [id number] Apr, Closed compression fracture of L3 lumbar vertebra with routine healing, subsequent encounter S32.030D [facility] [address] [place] [id number] 14 Apr, 2018 Low back pain M54.5 Via [facility] [address] [place] [id number] Apr, Coccydynia M53.3 [facility] [address] [id number] [address] [place] [address] March, [facility] [address] [id number] [address] [place] [address] March, Other chronic pain G89.29 [facility] [address] [id number] [address] [place] [phone] March, [facility] [address] [id number] [address] [place] [address] March, [facility] [address] [id number] [address] [place] [address] Feb, [facility] [address] [id number] [address] [place] [address] Feb, Other chronic pain G89.29 Via [facility] [employer] [address] [place] [id number] Feb, Other chronic pain G89.29 and Anxiety F4 1.9 [facility] [address] [id number] [address] [place] [phone] Feb, [facility] [address] [id number] [address] [place] [address] Jan, [facility] [address] [id number] [address] [place] [phone] Jan, [facility] [address] [facility] [id number] [address] [place] [address] Jan, [facility] [address] [facility] [id number] [address] [place] [address] Jan, [facility] [address] [facility] [id number] [address] [place] [address] Dec, [facility] [employer] [address] [place] [id number] Dec, Peripheral vascular disease I73.9 ; 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 ; Other chronic pain G89.29 ; Anxiety F41.9 ; Reactive depression F32.9 ; Insomnia G47.00 and Type 2 diabetes mellitus without complication, without long-term current use of insulin E11.9 [facility] ADRIENNE SANCHEZ [id number] [address] Nov, [facility] [address] [id number] [id number] Nov, Anxiety F41.9 [facility] [address] [facility] [id number] [address] [place] [address] Nov, [facility] [address] [id number] [place] [id number] Nov, Anxiety F41.9 [facility] [employer] [address] [place] [id number] Nov, Status post surgery Z98.890 ; Confused R 41.0 ; Anxiety F41.9 and Other chronic pain G89.29 [facility] [address] [id number] [place] [id number] Nov, Other chronic pain G89.29 [facility] [address] [facility] [id number] [address] [place] [address] Oct, [facility] [address] [id number] [id number] Oct, Other chronic pain G89.29 [facility] [address] [id number] [address] [place] [address] Oct, Anxiety F41.9 [facility] [address] [id number] [place] [id number] Sep, Other chronic pain G89.29 [facility] [address] [id number] [place] [id number] Sep, [facility] [employer] [address] [place] [id number] Aug, Dysuria R30.0 and Anxiety F41.9 [facility] [address] [id number] [address] [place] [address] Aug, [facility] [address] [id number] [place] [id number] Aug, Other chronic pain G89.29 [facility] [address] [facility] [id number] [address] [place] [address] Jul, Other chronic pain G89.29 [facility] [address] [id number] [place] [id number] Jun, [facility] [address] [id number] [place] [id number] Jun, Other chronic pain G89.29 [facility] [address] [facility] [id number] [address] [place] [phone] Jun, [facility] [address] [facility] [id number] [address] [place] [address] May, Other chronic pain G89.29 [facility] [address] [id number] [address] [place] [address] Apr, Other chronic pain G89.29 [facility] [employer] [address] [place] [id number] Apr, Reactive depression F32.9 and Pharyngeal dysphagia R13.13 [facility] [address] [id number] [address] [place] [address] Apr, Urinary tract infection with out hematuria, site unspecified N39.0 [facility] [address] [id number] [address] [place] [address] March, Other chronic pain G89.29 [facility] [address] [id number] [address] [place] [address] Feb, Other chronic pain G89.29 [facility] [address] [id number] [address] [place] [address] Feb, [facility] [address] [id number] [place] [id number] Feb, [facility] [employer] [facility] [employer] [address] [place] [id number] Feb, Dysuria R30.0 and Ventral hernia without obstruction or gangrene K43.9 [facility] [address] [facility] [id number] [address] [place] [address] Jan, Other chronic pain G89.29 [facility] [address] [id number] [place] [id number] Dec, Other chronic pain G89.29 [facility] [address] [id number] [address] [place] [address] Nov, Other chronic pain G89.29 [facility] [address] [place] [id number] Nov, Lymphadenitis I88.9 [facility] [address] [id number] [address] [place] [address] Nov, Other chronic pain G89.29 [facility] [address] [id number] [address] [place] [address] Nov, [facility] [address] [id number] [place] [id number] Nov, Other chronic pain G89.29 [facility] [address] [place] [id number] Oct, Low back pain M54.5 ; Hypertension I10 a nd Type 2 diabetes mellitus without complication, without long-term current use of insulin E11.9 [facility] [address] [id number] [address] [place] [address] Oct, [facility] [address] [id number] [address] [place] [address] Oct, [facility] [address] [id number] [address] [place] [address] Oct, [facility] [address] [id number] [address] [place] [address] Oct, [facility] [address] [id number] [address] [place] [address] Sep, [facility] [address] [id number] [address] [place] [address] Sep, [facility] [address] [id number] [address] [place] [address] Aug, Other chronic pain G89.29 [facility] [address] [id number] [address] [place] [address] Jul, [facility] [address] [id number] [address] [place] [address] Jul, [facility] [address] [id number] [address] [place] [address] Jul, [facility] [address] [id number] [address] [place] [address] Jun, [facility] [address] [id number] [address] [place] [address] Jun, [facility] [address] [place] [id number] Jun, Low back pain M54.5 ; Other chronic pain G89.29 and Coronary artery disease I25.10 [facility] [address] [id number] [address] [place] [address] Jun, [facility] [address] [id number] [address] [place] [address] May, [facility] [address] [id number] [address] [place] [address] May, [facility] [address] [id number] [address] [place] [address] May, Other chronic pain G89.29 [facility] [address] [id number] [address] [place] [address] May, [facility] [address] [id number] [address] [place] [address] Apr, [facility] [address] [id number] [address] [place] [address] 17 Apr, 2016 Acute cystitis without hemat uria N30.00 [facility] [address] [id number] [address] [place] [address] 16 Apr, 2016 Acute cystitis without hemat uria N30.00 ; Coronary artery disease I25.10 ; Low back pain M54.5 and Other chronic pain G89.29 [facility] [address] [id number] [address] [place] [address] Apr, Other chronic pain G89.29 [facility] [address] [id number] [address] [place] [address] March, Other chronic pain G89.29 [facility] [address] [id number] [address] [place] [address] 18 Feb, 2016 [facility] [address] [id number] [address] [place] [address] Feb, Arthritis M19.90 [facility] [address] [id number] [address] [place] [address] Feb, [facility] [address] [id number] [address] [place] [address] Jan, [facility] [address] [id number] [address] [place] [address] Jan, [facility] [address] [id number] [address] [place] [address] Jan, Other chronic pain G89.29 [facility] [address] [id number] [address] [place] [address] Jan, Hypertension I10 ; Coronary artery disease I25.10 and Insomnia G47.00 [facility] [address] [id number] [address] [place] [address] Jan, [facility] [address] [id number] [address] [place] [address] Dec, Right hip pain M25.551 [facility] [address] [facility] [id number] [address] [place] [address] Dec, [facility] [address] [id number] [address] [place] [address] Dec, [facility] [address] [id number] [address] [place] [address] Dec, [facility] [address] [facility] [id number] [address] [place] [address] Dec, Other chronic pain G89.29 [facility] [address] [id number] [address] [place] [address] Dec, [facility] [address] [id number] [address] [place] [address] Nov, [facility] [address] [id number] [address] [place] [address] Nov, Other chronic pain G89.29 [facility] [address] [id number] [address] [place] [phone] Nov, Right hip pain M25.551 and C oronary artery disease I25.10 [facility] [address] [id number] [address] [place] [phone] Nov, Other chronic pain G89.29 [facility] [address] [id number] [address] [place] [phone] Oct, [facility] [address] [id number] [address] [place] [phone] Oct, [facility] [address] [id number] [address] [place] [phone] Sep, [facility] [address] [id number] [address] [place] [phone] Sep, [facility] [address] [id number] [address] [place] [phone] Aug, [facility] [address] [facility] [id number] [address] [place] [phone] Aug, Hypertension I10 ; Coronary artery disease I25.10 and Arthritis M19.90 [facility] [address] [id number] [address] [place] [id number] Jun, [facility] [address] [id number] [address] [place] [phone] Jun, Essential hypertension, jayson gn 401.1 ; Other chronic pain 338.29 and Chronic airway obstruction, not elsewhere classified 496 [facility] [address] [facility] [id number] [address] [place] [phone] Jun, [facility] [address] [id number] [address] [place] [phone] Jun, [facility] [address] [id number] [address] [place] [phone] Jun, [facility] [address] [id number] [address] [place] [phone] May, [facility] [address] [facility] [id number] [address] [place] [phone] May, [facility] [address] [id number] [address] [place] [phone] Apr, [facility] [address] [id number] [address] [place] [address], [place] [phone] Apr, [facility] [address] [id number] [address] [place] [address], [place] [phone] Apr, [facility] [address] [id number] [address] [place] [address] [place] [phone] March, [facility] [address] [id number] [address] [place] [address] [place] [id number] March, [facility] [address] [id number] [address] [place] [address] [place] [id number] March, [facility] [address] [id number] [address] [place] [address], [place] [phone] March, [facility] [address] [id number] [address] [place] [address], [place] [id number] March, S[address] [facility] [facility] [address] [id number] [address] [place] [address], [place] [address] Feb, [facility] [address] [id number] [address] [place] [address], [place] [address] Feb, [facility] [address] [id number] [address] [place] [address], [place] [address] Feb, [facility] [address] [id number] [address] [place] [address], [place] [address] [address], [address] [facility] [address] [id number] [address] [place] [address], [place] [address] Feb, [facility] [address] [id number] [address] [place] [address], [place] [address] Jan, [facility] [address] [id number] [address] [place] [address], [place] [address] Jan, [facility] [address] [id number] [address] [place] [address], [place] [address] Jan, [facility] [address] [id number] [address] [place] [address], [place] [address] Jan, [facility] [address] [id number] [address] [place] [address], [place] [address] Jan, [facility] [address] [id number] [address] [place] [address], [place] [address] Jan, [facility] [address] [id number] [address] [place] [address], [place] [address] Dec, 2014 [facility] [address] [id number] [address] [place] [address], [place] [address] Dec, 2014 [facility] [address] [id number] [address] [place] [address], [place] [address] Dec, 2014 [facility] [address] [id number] [address] [place] [address], [place] [address] Dec, 2014 [facility] [address] [id number] [address] [place] [address], [place] [address] Dec, [facility] [address] [id number] [address] [place] [address], [place] [address] Dec, [facility] [address] [id number] [address] [place] [address], [place] [address] Nov, [facility] [address] [id number] [address] [place] [address], [place] [address] Nov, [facility] [address] [id number] [address] [place] [address] Nov, [facility] [address] [id number] [address] [place] [address], [place] [address] Nov, [facility] [address] [id number] [address] [place] [address], [place] [address] Nov, [facility] [address] [id number] [address] [place] [address], [place] [address] Nov, [facility] [address] [id number] [address] [place] [address] Nov, [facility] [address] [id number] [address] [place] [address], [place] [address] Nov, [facility] [address] [id number] [address] [place] [address], [place] [address] Nov, [facility] [address] [id number] [address] [place] [address], [place] [address] Nov, [facility] [address] [id number] [address] [place] [address], [place] [address] Nov, [facility] [address] [id number] [address] [place] [address], [place] [address] Nov, [facility] [address] [id number] [address] [place] [address], [place] [address] Nov, [facility] [address] [id number] [address] [place] [address], [place] [address] Nov, [facility] [address] [id number] [address] [place] [address], [place] [address] Oct, [facility] [address] [id number] [address] [place] [address], [place] [address] Oct, [facility] [address] [id number] [address] [place] [address], [place] [address] Oct, [facility] [address] [id number] [address] [place] [address], [place] [address] 18 Oct, 2014 [facility] [address] [id number] [address] [place] [address], [place] [address] 18 Oct, 2014 [facility] [address] [id number] [address] [place] [address], [place] [address] 17 Oct, 2014 [facility] [address] [id number] [address] [place] [address], [place] [address] 17 Oct, 2014 [facility] [address] [id number] [address] [place] [address], [place] [address] 10 Oct, 2014 [facility] [address] [id number] [address] [place] [address], [place] [address] Oct, [facility] [address] [id number] [address] [place] [address], [place] [address] Sep, [facility] [address] [id number] [address] [place] [address], [place] [address] Sep, [facility] [address] [id number] [address] [place] [address], [place] [address] Sep, [facility] [address] [id number] [address] [place] [address], [place] [address] Sep, [facility] [address] [id number] [address] [place] [address], [place] [address] Sep, [facility] [address] [id number] [address] [place] [address], [place] [address] Sep, [facility] [address] [id number] [address] [place] [address], [place] [address] Sep, [facility] [address] [id number] [address] [place] [address], [place] [address] Sep, [facility] [address] [id number] [address] [place] [address], [place] [address] Sep, [facility] [address] [id number] [address] [place] [address], [place] [address] Sep, [facility] [address] [id number] [address] [place] [address], [place] [address] Sep, [facility] [address] [id number] [address] [place] [address], [place] [address] Sep, [facility] [address] [id number] [address] [place] [address], [place] [address] Aug, [facility] [address] [id number] [address] [place] [address], [place] [address] Aug, [facility] [address] [id number] [address] [place] [address], [place] [address] 29 Aug, 2014 [facility] [address] [id number] [address] [place] [address], [place] [address] 29 Aug, 2014 [facility] [address] [id number] [address] [place] [address], [place] [address] 28 Aug, 2014 [facility] [address] [id number] [address] [place] [address], [place] [address] 28 Aug, 2014 [facility] [address] [id number] [address] [place] [address], [place] [address] 17 Aug, 2014 [facility] [address] [id number] [address] [place] [address], [place] [address] 17 Aug, 2014 [facility] [address] [id number] [address] [place] [address], [place] [address] 30 Jul, 2013 [facility] [address] [id number] [address] [place] [address], [place] [address] 30 Sep, 2013 [facility] [address] [id number] [address] [place] [address], [place] [address] 30 Sep, 2013 [facility] [address] [id number] [address] [place] [address], [place] [address] 30 Sep, 2013 [facility] [address] [id number] [address] [place] [address], [place] [address] 25 Sep, 2013 [facility] [address] [id number] [address] [place] [address], [place] [address] 25 Sep, 2013 [facility] [address] [id number] [address] [place] [address], [place] [address] 15 Sep, 2013 [facility] [address] [id number] [address] [place] [address], [place] [address] 15 Sep, 2013 [facility] [address] [id number] [address] [place] [address], [place] [address] 11 Sep, 2013 [facility] [address] [id number] [address] [place] [address], [place] [address] 11 Jul, 2013 [facility] [address] [id number] [facility] [place] [address] Jun, [facility] [address] [id number] [address] [place] [address], [place] [address] Jun, [facility] [address] [id number] [facility] [place] [address] Jun, [facility] [address] [id number] [address] [place] [address], [place] [address] Jun, [facility] [address] [id number] [address] [place] [address], [place] [address] Jun, [facility] [address] [id number] [address] [place] [address], [place] [address] Jun, [facility] [address] [id number] [address] [place] [address], [place] [address] Jun, [facility] [address] [id number] [address] [place] [address], [place] [address] Jun, [facility] [address] [id number] [address] [place] [address], [place] [address] Jun, [facility] [address] [id number] [address] [place] [address], [place] [address] Jun, [facility] [address] [id number] [address] [place] [address], [place] [address] Jun, [facility] [address] [id number] [address] [place] [address], [place] [address] Jun, [facility] [address] [id number] [address] [place] [address], [place] [address] Jun, [facility] [address] [id number] [address] [place] [address], [place] [address] Jun, [facility] [address] [id number] [address] [place] [address], [place] [address] Jun, [facility] [address] [id number] [address] [place] [address], [place] [address] Jun, [facility] [address] [id number] [facility] [place] [address] Jun, [facility] [address] [id number] [address] [place] [address], [place] [address] Jun, [facility] [address] [id number] [address] [place] [address], [place] [address] Jun, [facility] [address] [id number] [address] [place] [address], [place] [address] Jun, [facility] [address] [id number] [address] [place] [address], [place] [address] Jun, [facility] [address] [id number] [address] [place] [address], [place] [address] Jun, [facility] [address] [id number] [address] [place] [address], [place] [address] May, [facility] [address] [id number] [address] [place] [address], [place] [address] May, [facility] [address] [id number] [address] [place] [address], [place] [address] May, [facility] [address] [id number] [address] [place] [address], [place] [address] May, [facility] [address] [id number] [address] [place] [address], [place] [address] May, [facility] [address] [id number] [address] [place] [address], [place] [address] May, [facility] [address] [id number] [address] [place] [address], [place] [address] May, [facility] [address] [id number] [address] [place] [address], [place] [address] May, [facility] [address] [id number] [address] [place] [address], [place] [address] May, [facility] [address] [id number] [address] [place] [address], [place] [address] May, [facility] [address] [id number] [facility] [place] [address] May, [facility] [address] [id number] [address] [place] [address], [place] [address] May, [facility] [address] [id number] [address] [place] [address], [place] [address] May, [facility] [address] [id number] [address] [place] [address], [place] [address] Apr, [facility] [address] [id number] [address] [place] [address], [place] [address] Apr, [facility] [address] [id number] [address] [place] [address], [place] [address] Apr, [facility] [address] [id number] [address] [place] [address], [place] [address] Apr, [facility] [address] [id number] [address] [place] [address], [place] [address] Apr, [facility] [address] [id number] [address] [place] [address], [place] [address] Apr, [facility] [address] [id number] [address] [place] [address], [place] [address] Apr, [facility] [address] [id number] [address] [place] [address], [place] [address] Apr, [facility] [address] [id number] [address] [place] [address], [place] [address] Apr, [facility] [address] [id number] [address] [place] [address], [place] [address] March, [facility] [address] [id number] [address] [place] [address], [place] [address] March, [facility] [address] [id number] [address] [place] [address], [place] [address] March, [facility] [address] [id number] [facility] [place] [address] March, [facility] [address] [id number] [address] [place] [address], [place] [address] March, [facility] [address] [id number] [address] [place] [address] March, [facility] [address] [id number] [address] [place] [address], [place] [address] March, [facility] [address] [id number] [address] [place] [address], [place] [address] March, [facility] [address] [id number] [address] [place] [address], [place] [address] March, [facility] [address] [id number] [address] [place] [address], [place] [address] March, [facility] [address] [id number] [address] [place] [address], [place] [address] March, [facility] [address] [id number] [address] [place] [address], [place] [address] March, [facility] [address] [id number] [address] [place] [address], [place] [address] March, [facility] [address] [id number] [address] [place] [address], [place] [address] March, [facility] [address] [id number] [address] [place] [address], [place] [address] March, [facility] [address] [id number] [address] [place] [address], [place] [address] March, [facility] [address] [id number] [address] [place] [address], [place] [address] March, [facility] [address] [id number] [address] [place] [address], [place] [address] March, [facility] [address] [id number] [address] [place] [address], [place] [address] March, [facility] [address] [id number] [address] [place] [address], [place] [address] March, [facility] [address] [id number] [address] [place] [address], [place] [address] Feb, [facility] [address] [id number] [address] [place] [address], [place] [address] Feb, [facility] [address] [id number] [address] [place] [address], [place] [address] Feb, [facility] [address] [id number] [address] [place] [address], [place] [address] Feb, [facility] [address] [id number] [address] [place] [address], [place] [address] Feb, [facility] [address] [id number] [address] [place] [address], [place] [address] Feb, [facility] [address] [id number] [address] [place] [address], [place] [address] Feb, [facility] [address] [id number] [address] [place] [address], [place] [address] Feb, [facility] [address] [id number] [address] [place] [address], [place] [address] Jan, [facility] [address] [id number] [address] [place] [address], [place] [address] Jan, [facility] [address] [id number] [address] [place] [address], [place] [address] Jan, [facility] [address] [id number] [address] [place] [address], [place] [address] 24 Jan, 2014 [facility] [address] [id number] [address] [place] [address], [place] [address] Jan, [facility] [address] [id number] [address] [place] [address], [place] [address] Jan, [facility] [address] [id number] [address] [place] [address], [place] [address] Jan, [facility] [address] [id number] [address] [place] [address], [place] [address] Jan, [facility] [address] [id number] [address] [place] [address], [place] [address] Jan, [facility] [address] [id number] [address] [place] [address], [place] [address] Jan, [facility] [address] [id number] [address] [place] [address], [place] [address] Dec, [facility] [address] [id number] [address] [place] [address], [place] [address] Dec, [facility] [address] [id number] [address] [place] [address], [place] [address] Dec, [facility] [address] [id number] [address] [place] [address], [place] [address] Dec, [facility] [address] [id number] [address] [place] [address], [place] [address] Dec, [facility] [address] [id number] [address] [place] [address], [place] [address] Dec, [facility] [address] [id number] [address] [place] [address], [place] [address] Dec, [facility] [address] [id number] [address] [place] [address], [place] [address] Dec, [facility] [address] [id number] [address] [place] [address], [place] [address] Nov, [facility] [address] [id number] [address] [place] [address], [place] [address] Nov, [facility] [address] [id number] [address] [place] [address], [place] [address] Nov, [facility] [address] [id number] [address] [place] [address], [place] [address] Nov, [facility] [address] [id number] [address] [place] [address], [place] [address] Nov, [facility] [address] [id number] [address] [place] [address], [place] [address] Nov, [facility] [address] [id number] [address] [place] [address], [place] [address] Nov, [facility] [address] [id number] [address] [place] [address], [place] [address] Nov, [facility] [address] [id number] [address] [place] [address], [place] [address] Nov, [facility] [address] [id number] [address] [place] [address], [place] [address] Nov, [facility] [address] [id number] [address] [place] [address], [place] [address] Nov, [facility] [address] [id number] [address] [place] [address], [place] [address] Nov, [facility] [address] [id number] [address] [place] [address], [place] [address] Nov, [facility] [address] [id number] [address] [place] [address], [place] [address] Oct, [facility] [address] [id number] [address] [place] [address], [place] [address] Oct, [facility] [address] [id number] [address] [place] [address], [place] [address] Oct, [facility] [address] [id number] [address] [place] [address], [place] [address] Oct, [facility] [address] [id number] [address] [place] [address], [place] [address] Oct, [facility] [address] [id number] [address] [place] [address], [place] [address] Oct, [facility] [address] [id number] [address] [place] [id number] 18 Oct, 2013 [facility] [address] [id number] [address] [place] [address], [place] [address] 18 Oct, 2013 [facility] [address] [id number] [address] [place] [address], [place] [address] 17 Oct, 2013 [facility] [address] [id number] [address] [place] [address], [place] [id number] 17 Oct, 2013 [facility] [address] [id number] [address] [place] [address], [place] [id number] 03 Oct, 2013 [facility] [address] [id number] [address] [place] [address], [place] [address] 03 Oct, 2013 [facility] [address] [id number] [address] [place] [address], [place] [address] 02 Oct, 2013 [facility] [address] [id number] [address] [place] [address], [place] [address] 02 Oct, 2013 [facility] [address] [id number] [address] [place] [address], [place] [address] 14 Sep, 2013 [facility] [address] [id number] [address] [place] [address], [place] [address] 14 Sep, 2013 [facility] [address] [id number] [address] [place] [address], [place] [address] 05 Sep, 2013 [facility] [address] [id number] [address] [place] [address], [place] [id number] 05 Sep, 2013 [facility] [address] [id number] [address] [place] [id number] Sep, [facility] [address] [id number] [address] [place] [id number] Sep, [facility] [address] [id number] [address] [place] [address], [place] [address] 04 Sep, 2013 [facility] [address] [id number] [address] [place] [id number] 04 Sep, 2013 [facility] [address] [id number] [address] [place] [address], [place] [address] Sep, [facility] [address] [id number] [address] [place] [address], [place] [address] Sep, [facility] [address] [id number] [address] [place] [address], [place] [address] Aug, [facility] [address] [id number] [address] [place] [address], [place] [address] Aug, [facility] [address] [id number] [address] [place] [address], [place] [address] Aug, [facility] [address] [id number] [address] [place] [address], [place] [address] Aug, [facility] [address] [id number] [address] [place] [address], [place] [address] Aug, [facility] [address] [id number] [address] [place] [address], [place] [address] Aug, [facility] [address] [id number] [address] [place] [address], [place] [address] Aug, [facility] [address] [id number] [address] [place] [address], [place] [address] Aug, [facility] [address] [id number] [address] [place] [address], [place] [address] Aug, [facility] [address] [id number] [address] [place] [address], [place] [address] Aug, [facility] [address] [id number] [address] [place] [address], [place] [address] Aug, [facility] [address] [id number] [address] [place] [address], [place] [address] Aug, [facility] [address] [address] [id number] [address] [place] [address], [place] [address] Aug, [facility] [address] [id number] [address] [place] [address] [address] 18 Aug, 2013 [facility] [address] [id number] [address] [place] [address], [place] [address] 17 Aug, 2013 [facility] [address] [id number] [address] [place] [address], [place] [address] 14 Aug, 2013 [facility] [address] [id number] [address] [place] [address], [place] [address] 14 Aug, 2013 [facility] [address] [id number] [address] [place] [address], [place] [address] Aug, [facility] [address] [id number] [address] [place] [address], [place] [address] 20 Jul, 2013 [facility] [address] [id number] [address] [place] [address], [place] [address] 19 Jul, 2013 [facility] [address] [id number] [address] [place] [address], [place] [address] 18 Jul, 2013 [facility] [address] [id number] [address] [place] [address], [place] [address] 11 Jul, 2013 [facility] [address] [id number] [address] [place] [address], [place] [address] 11 Jul, 2013 [facility] [address] [id number] [address] [place] [address], [place] [address] 28 Jun, 2013 [facility] [address] [id number] [address] [place] [address], [place] [address] Jun, [facility] [address] [id number] [address] [place] [address], [place] [address] Jun, [facility] [address] [id number] [address] [place] [address], [place] [address] 15 Jun, 2013 [facility] [address] [id number] [address] [place] [address], [place] [address] 14 Jun, 2013 [facility] [address] [id number] [address] [place] [address], [place] [address] Jun, [facility] [address] [id number] [address] [place] [address], [place] [address] Jun, [facility] [address] [id number] [address] [place] [address], [place] [address] Jun, [facility] [address] [id number] [address] [place] [address], [place] [address] Jun, [facility] [address] [id number] [address] [place] [address], [place] [address] Jun, [facility] [address] [id number] [address] [place] [address], [place] [address] May, [facility] [address] [id number] [address] [place] [address], [place] [address] May, [facility] [address] [id number] [address] [place] [address], [place] [address] May, [facility] [address] [id number] [address] [place] [address], [place] [address] May, [facility] [address] [id number] [address] [place] [address], [place] [address] May, [facility] [address] [id number] [address] [place] [address], [place] [address] May, [facility] [address] [id number] [address] [place] [address], [place] [address] May, [facility] [address] [id number] [address] [place] [address], [place] [address] May, [facility] [address] [id number] [address] [place] [address], [place] [address] May, [facility] [address] [id number] [address] [place] [address], [place] [address] Apr, [facility] [address] [id number] [address] [place] [address], [place] [address] Apr, [facility] [address] [id number] [address] [place] [address], [place] [address] Apr, [facility] [address] [id number] [address] [place] [address], [place] [address] Apr, [facility] [address] [id number] [address] [place] [address], [place] [address] Apr, [facility] [address] [id number] [address] [place] [address], [place] [address] Apr, [facility] [address] [id number] [address] [place] [address], [place] [address] Apr, [facility] [address] [id number] [address] [place] [address], [place] [address] March, [facility] [address] [id number] [address] [place] [address], [place] [address] Feb, [facility] [address] [id number] [address] [place] [address], [place] [address] Feb, [facility] [address] [id number] [address] [place] [address], [place] [address] Feb, [facility] [address] [id number] [address] [place] [address], [place] [address] Jan, [facility] [address] [id number] [address] [place] [address], [place] [address] Jan, [facility] [address] [id number] [address] [place] [address], [place] [address] Jan, [facility] [address] [id number] [address] [place] [address], [place] [address] 14 Jan, 2013 [facility] [address] [id number] [address] [place] [address], [place] [address] 12 Jan, 2013 [facility] [address] [id number] [address] [place] [address], [place] [address] 08 Jan, 2013 [facility] [address] [id number] [address] [place] [address], [place] [address] 07 Jan, 2013 [facility] [address] [id number] [address] [place] [address], [place] [address] Jan, [facility] [address] [id number] [address] [place] [address], [place] [address] 28 Dec, 2012 [facility] [address] [id number] [address] [place] [address], [place] [address] 25 Dec, 2012 [facility] [address] [id number] [address] [place] [address], [place] [address] 13 Dec, 2012 [facility] [address] [id number] [address] [place] [address], [place] [address] 11 Dec, 2012 [facility] [address] [id number] [address] [place] [address], [place] [address] 07 Dec, 2012 [facility] [address] [id number] [address] [place] [address], [place] [address] 06 Dec, 2012 [facility] [address] [id number] [address] [place] [address], [place] [address] 05 Dec, 2012 [facility] [address] [id number] [address] [place] [address], [place] [address] Nov, [facility] [address] [id number] [address] [place] [address], [place] [address] 24 Nov, 2012 [facility] [address] [id number] [address] [place] [address], [place] [address] Nov, [facility] [address] [id number] [address] [place] [address], [place] [address] 15 Nov, 2012 [facility] [address] [id number] [address] [place] [address], [place] [address] 10 Nov, 2012 [facility] [address] [id number] [address] [place] [address], [place] [address] Nov, [facility] [address] [id number] [address] [place] [address], [place] [address] 02 Nov, 2012 [facility] [address] [id number] [address] [place] [address], [place] [address] Oct, [facility] [address] [id number] [address] [place] [address], [place] [address] Oct, [facility] [address] [id number] [address] [place] [address], [place] [address] Oct, [facility] [address] [id number] [address] [place] [address], [place] [address] Oct, [facility] [address] [id number] [address] [place] [address], [place] [address] Oct, [facility] [address] [id number] [address] [place] [address], [place] [address] Oct, [facility] [address] [id number] [address] [place] [address], [place] [address] Oct, [facility] [address] [id number] [address] [place] [address], [place] [address] Oct, [facility] [address] [id number] [address] [place] [address], [place] [address] Oct, [facility] [address] [id number] [address] [place] [address], [place] [address] Oct, [facility] [address] [id number] [address] [place] [address], [place] [address] Oct, [facility] [address] [id number] [address] [place] [address], [place] [address] Oct, [facility] [address] [id number] [address] [place] [address], [place] [address] Sep, [facility] [address] [id number] [address] [place] [address], [place] [address] Sep, [facility] [address] [id number] [address] [place] [address], [place] [address] Sep, [facility] [address] [id number] [address] [place] [address], [place] [address] Sep, [facility] [address] [id number] [address] [address] Sep, [facility] [address] [id number] [address] [place] [address], [place] [address] Sep, [facility] [address] [id number] [address] [place] [address] Sep, [facility] [address] [id number] [address] [place] [address] Sep, [facility] [address] [id number] [address] [place] [address] Sep, [facility] [address] [id number] [address] [place] [address], [place] [address] Sep, [facility] [address] [id number] [address] [place] [address] Sep, [facility] [address] [id number] [address] [place] [address] Aug, [facility] [address] [id number] [address] [place] [address] Aug, [facility] [address] [id number] [address] [place] [address] Aug, [facility] [address] [id number] [address] [place] [address] Aug, [facility] [address] [id number] [address] [place] [address] Aug, [facility] [address] [id number] [address] [place] [address] Aug, [facility] [address] [id number] [address] [place] [address] Aug, [facility] [address] [id number] [address] [place] [address] Aug, [facility] [address] [id number] [address] [place] [address] Aug, [facility] [address] [id number] [address] [place] [address], [place] [address] Aug, [facility] [address] [id number] [address] [place] [address], [place] [address] Jul, [facility] [address] [id number] [address] [place] [address], [place] [address] Jul, [facility] [address] [id number] [address] [place] [address], [place] [address] Jul, [facility] [address] [id number] [address] [place] [address], [place] [address] Jul, [facility] [address] [id number] [address] [place] [address], [place] [address] Jun, [facility] [address] [id number] [address] [place] [address], [place] [address] Jun, [facility] [address] [id number] [address] [place] [address], [place] [address] Jun, [facility] [address] [id number] [address] [place] [address], [place] [address] Jun, [facility] [address] [id number] [address] [place] [address], [place] [address] Jun, [facility] [address] [id number] [address] [place] [address], [place] [address] Jun, [facility] [address] [id number] [address] [place] [address], [place] [address] Jun, [facility] [address] [id number] [address] [place] [address], [place] [address] May, [facility] [address] [id number] [address] [place] [address], [place] [address] May, [facility] [address] [id number] [address] [place] [address], [place] [address] May, [facility] [address] [id number] [address] [place] [address], [place] [address] May, [facility] [address] [id number] [address] [place] [address], [place] [address] May, [facility] [address] [id number] [address] [place] [address], [place] [address] Apr, [facility] [address] [id number] [address] [place] [address], [place] [address] Apr, [facility] [address] [id number] [address] [place] [address], [place] [address] Apr, [facility] [address] [id number] [address] [place] [address], [place] [address] Apr, [facility] [address] [id number] [address] [place] [address], [place] [address] Apr, [facility] [address] [id number] [address] [place] [address], [place] [address] March, [facility] [address] [id number] [address] [place] [address], [place] [address] March, [facility] [address] [id number] [address] [place] [address], [place] [address] March, [facility] [address] [id number] [address] [place] [address], [place] [address] March, [facility] [address] [id number] [address] [place] [address], [place] [address] March, [facility] [address] [id number] [address] [place] [address], [place] [address] March, [facility] [address] [id number] [address] [place] [address], [place] [address] March, [facility] [address] [id number] [address] [place] [address], [place] [address] March, [facility] [address] [id number] [address] [place] [address], [place] [address] March, [facility] [address] [id number] [address] [place] [address], [place] [address] March, [facility] [address] [id number] [address] [place] [address], [place] [address] 30 Feb, 2012 [facility] [address] [id number] [address] [place] [address], [place] [address] Feb, [facility] [address] [id number] [address] [place] [address], [place] [address] Feb, [facility] [address] [id number] [address] [place] [address], [place] [address] Feb, [facility] [address] [id number] [address] [place] [address], [place] [address] Feb, [facility] [address] [id number] [address] [place] [address], [place] [address] Feb, [facility] [address] [id number] [address] [place] [address], [place] [address] Feb, [facility] [address] [id number] [address] [place] [address], [place] [address] Feb, [facility] [address] [id number] [address] [place] [address], [place] [address] Feb, [facility] [address] [id number] [address] [place] [address], [place] [address] Jan, [facility] [address] [id number] [address] [place] [address], [place] [address] Jan, [facility] [address] [id number] [address] [place] [address], [place] [address] 05 Jan, 2012 [facility] [address] [id number] [address] [place] [address], [place] [address] Jan, [facility] [address] [id number] [address] [place] [address], [place] [address] Dec, [facility] [address] [id number] [address] [place] [address], [place] [address] Dec, [facility] [address] [id number] [address] [place] [address] Nov, [facility] [address] [id number] [address] [place] [address] Nov, [facility] [address] [id number] [address] [place] [address] Nov, [facility] [address] [id number] [address] [place] [address] Nov, [facility] [address] [id number] [address] [place] [id number] Nov, [facility] [address] [id number] [address] [place] [address] Oct, [facility] [address] [id number] [address] [place] [id number] Oct, [facility] [address] [id number] [address] [place] [address] Oct, [facility] [address] [id number] [address] [place] [address] Oct, [facility] [address] [id number] [address] [place] [address] Oct, [facility] [address] [id number] [address] [place] [address] Oct, [facility] [address] [id number] [address] [place] [phone] Oct, [facility] [address] [id number] [address] [place] [address] Oct, [facility] [address] [id number] [address] [place] [id number] Sep, IMMUNIZATIONS No Known Immunizations SOCIAL HISTORY Never Assessed REASON FOR VISIT PLAN OF CARE VITAL SIGNS Height 62 in 2014-06-18 Weight 190 lbs 2014-06-18 Temperature 99.4 degrees Fahrenheit 2014-06-18 Heart Rate 88 bpm 2014-06-18 Respiratory Rate 24 2014-06-18 Blood pressure systolic 144 mmHg 2014-06-18 Blood pressure diastolic 68 mmHg 2014-06-18 MEDICATIONS Unknown Medications RESULTS No Results PROCEDURES No Known procedures INSTRUCTIONS MEDICATIONS ADMINISTERED No Known Medications MEDICAL (GENERAL) HISTORY Type Description Date Medical History aortic abdominal aneurysm moderate 04/06 18 Medical History illiac aneurysm 03/2018 Surgical History No Surgical history information Hospitalization History [facility]- Urosepsis, ab d pain and fever, discharged 11/27/2017 11/26/2017 Hospitalization History [facility]- Went Unrepsonsive, Hit head 2017 Hospitalization History [facility]- Back Pain 05/05/201 8
--- OUTSIDE RECORDS SUMMARY | 2020-06-18 15:15 | XMS REPORT ---
Author Sanjuanita Matson 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 Name Role Phone ILIRMIKE Unavailable PROBLEMS Type Condition ICD9-CM Code [id number] Code Onset Dates Condition S tatus SNOMED Code Problem Coronary artery disease I25.10 Active 00778969 Problem Hypertension I10 Active 8785390 3 Problem Other chronic pain G89.29 Active 8 0530187 Problem Hyperlipidemia E78.5 Active 97126 004 Problem Type 2 diabetes mellitus wit hout complication, without long-term current use of insulin E11.9 Active 668616406 Problem Low back pain M54.5 Active 003161 009 Problem Pharyngeal dysphagia R13.13 Active 48900105593407 Problem Anxiety F41.9 Active 07041106 Problem Peripheral vascular disease I73.9 Ac tive 310105451 Problem Suprapubic catheter Z93.59 Active 146307824 Problem Reactive depression F32.9 Active 64716910 Problem Neurogenic bladder N31.9 Active 3 00727231 Problem Ventral hernia without obstruction or gangrene K43 .9 Active 614801107 Problem Insomnia G47.00 Active 013223760 Problem Paroxysmal atrial fibrillation I48.0 Active 940059353 Problem Postmenopausal atrophic vaginitis N95.2 Active 42144940 Problem Encounter for suprapubic catheter care Z43.5 Active [id number] ALLERGIES No Information ENCOUNTERS Encounter Location Date Diagnosis [facility] [address] [facility] [id number] [address] [place] [address] Jun, Strain of right shoulder, scherer bsequent encounter S46.911D [facility] [address] [id number] [address] [place] [address] Jun, Anxiety F41.9 [facility] [address] [place] [address] Jun, Neurogenic bladder N31.9 and Anxiety F41 .9 Via [facility] [address] [place] [id number] May, Anxiety F41.9 [place] [address] [id number] [address] [place] [address] May, Dysuria R30.0 [place] [address] [id number] [address] [place] [address] May, Strain of right shoulder, scherer bsequent encounter S46.911D and Anxiety F41.9 [place] [address] [id number] [address] [place] [address] Apr, Via [facility] [address] [place] [address] Apr, Strain of right shoulder, subsequent enc ounter S46.911D [place] [address] [id number] [address] [place] [address] 14 Apr, 2019 Strain of right shoulder, scherer bsequent encounter S46.911D and Anxiety F41.9 Via [facility] [address] [place] [id number] 13 Apr, 2019 Type 2 diabetes mellitus without complic ation, without long-term current use of insulin E11.9 and Neurogenic bladder N31.9 Via [facility] [address] [place] [id number] Apr, Strain of right shoulder, subsequent enc ounter S46.911D ; History of GI bleed Z87.19 ; Neurogenic bladder N31.9 and Reactive depression F32.9 [facility] [address] [id number] [address] [place] [address] 10 Apr, 2019 Acute pain of left shoulder M25.512 [place] [address] [id number] [address] [place] [address] 07 Apr, 2019 [place] [address] [id number] [address] [place] [address] 06 Apr, 2019 Anxiety F41.9 and 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 Via [facility] [address] [place] [address] March, Gastrointestinal hemorrhage associated w ith acute gastritis K29.01 [facility] [address] [id number] [address] [place] [address] March, Via [facility] [address] [place] [id number] March, Bronchitis J40 [facility] [address] [id number] [address] [place] [address] March, Cough R05 [facility] [address] [id number] [address] [place] [address] March, Other chronic pain G89.29 [facility] [address] [id number] [address] [place] [address] March, Anxiety F41.9 [facility] [address] [id number] [address] [place] [address] March, [facility] [address] [id number] [address] [place] [address] Feb, Other chronic pain G89.29 [facility] [address] [id number] [address] [place] [address] Feb, Anxiety F41.9 [facility] [address] [id number] [address] [place] [address] Feb, Other chronic pain G89.29 Via [facility] [address] [place] [id number] Feb, Neurogenic bladder N31.9 and Suprapubic catheter Z93.59 [facility] [address] [id number] [address] [place] [address] Jan, Anxiety F41.9 [facility] [address] [id number] [address] [place] [address] Dec, Anxiety F41.9 [facility] [address] [id number] [address] [place] [address] Dec, Other chronic pain G89.29 an d Anxiety F41.9 [facility] [address] [id number] [address] [place] [address] Dec, Via [facility] [address] [place] [address] Dec, Neurogenic bladder N31.9 and Suprapubic catheter Z93.59 [facility] [address] [id number] [address] [place] [address] Nov, Other chronic pain G89.29 an d Anxiety F41.9 [facility] [address] [id number] [address] [place] [address] Nov, Via [facility] [address] [place] [id number] Nov, Suprapubic catheter Z93.59 [facility] [address] [id number] [address] [place] [address] Oct, Other chronic pain G89.29 an d Anxiety F41.9 [facility] [address] [id number] [address] [place] [address] Oct, [facility] [address] [id number] [address] [place] [address] Oct, Suprapubic catheter Z93.59 [facility] [address] [id number] [address] [place] [address] Oct, Via [facility] [address] [place] [id number] Oct, [facility] [address] [id number] [address] [place] [address] Oct, Anxiety F41.9 [facility] [address] [id number] [address] [place] [phone] Oct, Anxiety F41.9 Via [facility] [address] [place] [id number] Oct, Other chronic pain G89.29 [facility] [address] [id number] [address] [place] [address] 14 Sep, 2018 Other chronic pain G89.29 Via [facility] [address] [place] [id number] Sep, Suprapubic catheter Z93.59 and Cervicalg ia M54.2 [facility] [address] [id number] [address] [place] [address] Sep, [facility] [address] [id number] [address] [place] [address] Sep, [facility] [address] [id number] [address] [place] [address] Sep, Via [facility] [address] [place] [address] Aug, Cystitis N30.90 [facility] [address] [id number] [address] [place] [address] Aug, [facility] [address] [id number] [address] [place] [address] Aug, Other chronic pain G89.29 [facility] [address] [id number] [address] [place] [address] Aug, Via [facility] [address] [place] [id number] Aug, Encounter for suprapubic catheter care Z 43.5 [facility] [address] [id number] [address] [place] [address] Jul, Via [facility] [address] [place] [id number] Jul, [facility] [address] [id number] [address] [place] [address] Jul, Other chronic pain G89.29 [facility] [address] [id number] [address] [place] [address] Jul, [facility] [address] [id number] [address] [place] [address] Jul, Via [facility] [address] [place] [id number] Jun, Postmenopausal atrophic vaginitis N95.2 [facility] [address] [id number] [address] [place] [address] 17 Jun, 2018 Other chronic pain G89.29 [facility] [address] [id number] [address] [place] [address] Jun, Via [facility] [address] [place] [id number] May, Anxiety F41.9 ; Type 2 diabetes mellitus without complication, without long-term current use of insulin E11.9 ; Hypertension I10 ; Low back pain M54.5 ; Paroxysmal atrial fibrillation I48.0 and 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 [place] [address] [id number] [address] [place] [address] May, Other chronic pain G89.29 Via [facility] [address] [place] [id number] May, Low back pain M54.5 [place] [address] [id number] [address] [place] [address] May, [facility] [address] [id number] [address] [place] [address] Apr, Other chronic pain G89.29 [place] [address] [id number] [address] [place] [address] Apr, [place] [address] [id number] [address] [place] [address] Apr, Via [facility] [address] [place] [address] Apr, Closed compression fracture of L3 lumbar vertebra with routine healing, subsequent encounter S32.030D [facility] [address] [place] [id number] Apr, Low back pain M54.5 Via [facility] [address] [place] [address] Apr, Coccydynia M53.3 [facility] [address] [id number] [address] [place] [address] March, [facility] [address] [id number] [address] [place] [address] March, Other chronic pain G89.29 [facility] [address] [id number] [address] [place] [address] March, [facility] [address] [id number] [address] [place] [address] March, [facility] [address] [id number] [address] [place] [address] Feb, [facility] [address] [id number] [address] [place] [address] Feb, Other chronic pain G89.29 Via [facility] [address] [place] [address] Feb, Other chronic pain G89.29 and Anxiety F4 1.9 [facility] [address] [id number] [address] [place] [address] Feb, [facility] [address] [id number] [address] [place] [address] Jan, [facility] [address] [id number] [address] [place] [address] Jan, [facility] [address] [id number] [address] [place] [address] Jan, [facility] [address] [id number] [address] [place] [address] Jan, [facility] [address] [id number] [address] [place] [address] Dec, Via [facility] [address] [place] [address] Dec, Peripheral vascular disease I73.9 ; 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 ; Other chronic pain G89.29 ; Anxiety F41.9 ; Reactive depression F32.9 ; Insomnia G47.00 and Type 2 diabetes mellitus without complication, without long-term current use of insulin E11.9 [facility] [place] [address] [id number] [place] [address] Nov, [facility] [address] [id number] [place] [id number] Nov, Anxiety F41.9 [facility] [address] [facility] [id number] [address] [place] [address] Nov, [place] [address] [id number] [place] [id number] Nov, Anxiety F41.9 Via [facility] [address] [place] [address] Nov, Status post surgery Z98.890 ; Confused R 41.0 ; Anxiety F41.9 and Other chronic pain G89.29 [place] [address] [id number] [place] [id number] Nov, Other chronic pain G89.29 [place] [address] [facility] [id number] [address] [place] [address] Oct, [place] [address] [id number] [place] [id number] Oct, Other chronic pain G89.29 [facility] [address] [facility] [id number] [address] [place] [address] Oct, Anxiety F41.9 [place] [address] [id number] [place] [id number] Sep, Other chronic pain G89.29 [place] [address] [id number] [place] [id number] Sep, Via [facility] [address] [place] [id number] Aug, Dysuria R30.0 and Anxiety F41.9 [facility] [address] [id number] [address] [place] [address] Aug, [facility] [address] [id number] [place] [facility] [place] [id number] Aug, Other chronic pain G89.29 [facility] [address] [id number] [address] [place] [address] Jul, Other chronic pain G89.29 [facility] [address] [id number] [place] [address] Jun, [facility] [address] [id number] [facility] [facility] [place] [id number] Jun, Other chronic pain G89.29 [facility] [address] [id number] [address] [place] [address] Jun, [facility] [address] [id number] [address] [place] [address] May, Other chronic pain G89.29 [facility] [address] [id number] [address] [place] [address] Apr, Other chronic pain G89.29 Via [facility] [address] [facility] [id number] Apr, Reactive depression F32.9 and Pharyngeal dysphagia R13.13 [facility] [address] [id number] [address] [place] [address] Apr, Urinary tract infection with out hematuria, site unspecified N39.0 [facility] [address] [id number] [address] [place] [address] March, Other chronic pain G89.29 [facility] [address] [id number] [address] [place] [address] Feb, Other chronic pain G89.29 [facility] [address] [id number] [address] [place] [address] Feb, [facility] [address] [id number] [place] [id number] Feb, Via [facility] [address] [place] [address] Feb, Dysuria R30.0 and Ventral hernia without obstruction or gangrene K43.9 [facility] [address] [id number] [address] [place] [address] Jan, Other chronic pain G89.29 [facility] [address] [id number] [place] [id number] Dec, Other chronic pain G89.29 [facility] [address] [id number] [address] [place] [address] Nov, Other chronic pain G89.29 [facility] [address] [place] [id number] Nov, Lymphadenitis I88.9 [facility] [address] [id number] [address] [place] [address] Nov, Other chronic pain G89.29 [facility] [address] [id number] [address] [place] [address] Nov, [facility] [address] [id number] [place] [address] Nov, Other chronic pain G89.29 Via [facility] [employer] [facility] [address] [place] [id number] Oct, Low back pain M54.5 ; Hypertension I10 a nd Type 2 diabetes mellitus without complication, without long-term current use of insulin E11.9 [facility] [address] [id number] [address] [place] [address] Oct, [facility] [address] [id number] [address] [place] [address] Oct, [facility] [address] [id number] [address] [place] [address] Oct, [facility] [address] [id number] [address] [place] [address] Oct, [facility] [address] [id number] [address] [place] [address] Sep, [facility] [address] [id number] [address] [place] [address] Sep, [facility] [address] [id number] [address] [place] [address] Aug, Other chronic pain G89.29 [facility] [address] [id number] [address] [place] [address], [place] [address] Jul, [facility] [address] [id number] [address] [place] [address] Jul, [facility] [address] [id number] [address] [place] [address] Jul, [facility] [address] [id number] [address] [place] [address] Jun, [facility] [address] [id number] [address] [place] [address] Jun, Via [facility] [address] [place] [id number] Jun, Low back pain M54.5 ; Other chronic pain G89.29 and Coronary artery disease I25.10 [facility] [address] [id number] [address] [place] [address] Jun, [facility] [address] [id number] [address] [place] [address] May, [facility] [address] [id number] [address] [place] [address] May, [facility] [address] [id number] [address] [place] [address] May, Other chronic pain G89.29 [facility] [address] [id number] [address] [place] [address] May, [facility] [address] [id number] [address] [place] [address] Apr, [facility] [address] [id number] [address] [place] [address] 17 Apr, 2016 Acute cystitis without hemat uria N30.00 [facility] [address] [id number] [address] [place] [address] 16 Apr, 2016 Acute cystitis without hemat uria N30.00 ; Coronary artery disease I25.10 ; Low back pain M54.5 and Other chronic pain G89.29 [facility] [address] [id number] [address] [place] [address] Apr, Other chronic pain G89.29 [facility] [address] [id number] [address] [place] [address] March, Other chronic pain G89.29 [facility] [address] [id number] [address] [place] [address] 18 Feb, 2016 [facility] [address] [id number] [address] [place] [address] 15 Feb, 2016 Arthritis M19.90 [facility] [address] [id number] [address] [place] [address] Feb, [facility] [address] [facility] [id number] [address] [place] [address] 30 Jan, 2016 [facility] [address] [id number] [address] [place] [address] Jan, [facility] [address] [id number] [address] [place] [address] Jan, Other chronic pain G89.29 [facility] [address] [id number] [address] [place] [address] Jan, Hypertension I10 ; Coronary artery disease I25.10 and Insomnia G47.00 [facility] [address] [id number] [address] [place] [address] Jan, [facility] [address] [id number] [address] [place] [address] Dec, Right hip pain M25.551 [facility] [address] [id number] [address] [place] [address] Dec, [facility] [address] [id number] [address] [place] [address] Dec, [facility] [address] [id number] [address] [place] [address] Dec, [facility] [address] [id number] [address] [place] [address] Dec, Other chronic pain G89.29 [facility] [address] [id number] [address] [place] [address] Dec, [facility] [address] [id number] [address] [place] [address] Nov, [facility] [address] [id number] [address] [place] [address] Nov, Other chronic pain G89.29 [facility] [address] [id number] [address] [place] [address] Nov, Right hip pain M25.551 and C oronary artery disease I25.10 [facility] [address] [id number] [address] [place] [address] Nov, Other chronic pain G89.29 [facility] [address] [id number] [address] [place] [address] Oct, [facility] [address] [id number] [address] [place] [address] Oct, [facility] [address] [facility] [id number] [address] [place] [address] Sep, [facility] [address] [facility] [id number] [address] [place] [phone] Sep, [facility] [address] [id number] [address] [place] [phone] Aug, [facility] [address] [id number] [address] [place] [phone] Aug, Hypertension I10 ; Coronary artery disease I25.10 and Arthritis M19.90 [facility] [address] [id number] [address] [place] [id number] Jun, [facility] [address] [id number] [address] [place] [phone] Jun, Essential hypertension, jayson gn 401.1 ; Other chronic pain 338.29 and Chronic airway obstruction, not elsewhere classified 496 [facility] [address] [id number] [address] [place] [phone] Jun, [facility] [address] [id number] [address] [place] [phone] Jun, [facility] [address] [id number] [address] [place] [phone] Jun, [facility] [address] [id number] [address] [place] [phone] May, [facility] [address] [id number] [address] [place] [phone] May, [facility] [address] [id number] [address] [place] [phone] Apr, [facility] [address] [id number] [address] [place] [phone] Apr, [facility] [address] [id number] [address] [place] [id number] Apr, [facility] [address] [id number] [address] [place] [id number] March, [facility] [address] [id number] [address] [place] [phone] March, [facility] [address] [id number] [address] [place] [address], [place] [address] March, [facility] [address] [id number] [address] [place] [address], [place] [address] March, [facility] [address] [id number] [address] [place] [address], [place] [address] March, Sialadenitis 527.2 [facility] [address] [id number] [address] [place] [address], [place] [address] Feb, [facility] [address] [id number] [address] [place] [address], [place] [address] Feb, [facility] [address] [id number] [address] [place] [address], [place] [address] Feb, [facility] [address] [id number] [address] [place] [address], [place] [address] Feb, [facility] [address] [id number] [address] [place] [address] Feb, [facility] [address] [id number] [address] [place] [address], [place] [address] Jan, [facility] [address] [id number] [address] [place] [address] Jan, [facility] [address] [id number] [address] [place] [address] Jan, [facility] [address] [id number] [address] [place] [address] Jan, [facility] [address] [id number] [address] [place] [address], [place] [address] Jan, [facility] [address] [id number] [address] [place] [address] Jan, [facility] [address] [id number] [address] [place] [address] Dec, [facility] [address] [id number] [address] [place] [address] Dec, [facility] [address] [id number] [address] [place] [address], [place] [address] Dec, [facility] [address] [id number] [address] [place] [address], [place] [address] Dec, [facility] [address] [id number] [address] [place] [address], [place] [address] Dec, [facility] [address] [id number] [address] [place] [address], [place] [address] Dec, [facility] [address] [id number] [address] [place] [address], [place] [address] Nov, [facility] [address] [id number] [address] [place] [address], [place] [address] Nov, [facility] [address] [id number] [address] [place] [address], [place] [address] Nov, [facility] [address] [id number] [address] [place] [address], [place] [address] Nov, [facility] [address] [id number] [address] [place] [address], [place] [address] Nov, [facility] [address] [id number] [address] [place] [address], [place] [address] Nov, [facility] [address] [id number] [address] [place] [address], [place] [address] Nov, [facility] [address] [id number] [address] [place] [address], [place] [address] Nov, [facility] [address] [id number] [address] [place] [address], [place] [address] Nov, [facility] [address] [id number] [address] [place] [address], [place] [address] Nov, [facility] [address] [id number] [address] [place] [address], [place] [address] Nov, [facility] [address] [id number] [address] [place] [address], [place] [address] Nov, [facility] [address] [id number] [address] [place] [address], [place] [address] Nov, [facility] [address] [id number] [address] [place] [address], [place] [address] Nov, [facility] [address] [id number] [address] [place] [address], [place] [address] Oct, [facility] [address] [id number] [address] [place] [address], [place] [address] Oct, [facility] [address] [id number] [address] [place] [address], [place] [address] Oct, [facility] [address] [id number] [address] [place] [address], [place] [address] Oct, [facility] [address] [id number] [address] [place] [address], [place] [address] Oct, [facility] [address] [id number] [address] [place] [address], [place] [address] Oct, [facility] [address] [id number] [address] [place] [address], [place] [address] Oct, [facility] [address] [id number] [address] [place] [address], [place] [address] Oct, [facility] [address] [id number] [address] [place] [address], [place] [address] Oct, [facility] [address] [id number] [address] [place] [address], [place] [address] Sep, [facility] [address] [id number] [address] [place] [address], [place] [address] Sep, [facility] [address] [id number] [address] [place] [address], [place] [address] Sep, [facility] [address] [id number] [address] [address] Sep, [facility] [address] [id number] [address] [place] [address], [place] [address] Sep, [facility] [address] [id number] [address] [place] [address], [place] [address] Sep, [facility] [address] [id number] [address] [place] [address], [place] [address] Sep, [facility] [address] [id number] [address] [place] [address] Sep, [facility] [address] [id number] [address] [place] [address], [place] [address] Sep, [facility] [address] [id number] [address] [place] [address], [place] [address] Sep, [facility] [address] [id number] [address] [place] [address], [place] [address] Sep, [facility] [address] [id number] [address] [place] [address], [place] [address] Sep, [facility] [address] [id number] [address] [place] [address], [place] [address] Aug, [facility] [address] [id number] [address] [place] [address], [place] [address] Aug, [facility] [address] [id number] [address] [place] [address] Aug, [facility] [address] [id number] [address] [place] [address] Aug, [facility] [address] [id number] [address] [place] [address], [place] [address] Aug, [facility] [address] [id number] [address] [place] [address], [place] [address] Aug, [facility] [address] [id number] [address] [place] [address] Aug, [facility] [address] [id number] [facility] [place] [address] 17 Aug, 2014 [facility] [address] [id number] [address] [place] [address], [place] [address] 30 Jul, 2013 [facility] [address] [id number] [address] [place] [address], [place] [address] 30 Jul, 2013 [facility] [address] [id number] [address] [place] [address], [place] [address] 30 Jul, 2013 [facility] [address] [id number] [address] [place] [address], [place] [address] 30 Jul, 2013 [facility] [address] [id number] [address] [place] [address], [place] [address] 25 Jul, 2013 [facility] [address] [id number] [address] [place] [address], [place] [address] 25 Jul, 2013 [facility] [address] [id number] [address] [place] [address], [place] [address] 15 Jul, 2013 [facility] [address] [id number] [address] [place] [address], [place] [address] 15 Jul, 2014 [facility] [address] [id number] [address] [place] [address], [place] [address] 11 Jul, 2014 [facility] [address] [id number] [address] [place] [address], [place] [address] Jul, [facility] [address] [id number] [address] [place] [address], [place] [address] Jun, [facility] [address] [id number] [address] [place] [address], [place] [address] Jun, [facility] [address] [id number] [address] [place] [address], [place] [address] Jun, [facility] [address] [id number] [address] [place] [address], [place] [address] Jun, [facility] [address] [id number] [address] [place] [address], [place] [address] Jun, [facility] [address] [id number] [facility] [place] [address] Jun, [facility] [address] [id number] [address] [place] [address], [place] [address] Jun, [facility] [address] [id number] [address] [place] [address], [place] [address] Jun, [facility] [address] [id number] [address] [place] [address], [place] [address] Jun, [facility] [address] [id number] [address] [place] [address], [place] [address] Jun, [facility] [address] [id number] [address] [place] [address], [place] [address] Jun, [facility] [address] [id number] [address] [place] [address], [place] [address] Jun, [facility] [address] [id number] [address] [place] [address], [place] [address] Jun, [facility] [address] [id number] [address] [place] [address], [place] [address] Jun, [facility] [address] [id number] [address] [place] [address], [place] [address] Jun, [facility] [address] [id number] [address] [place] [address], [place] [address] Jun, [facility] [address] [id number] [address] [place] [address], [place] [address] Jun, [facility] [address] [id number] [address] [place] [address], [place] [address] Jun, [facility] [address] [id number] [address] [place] [address], [place] [address] Jun, [facility] [address] [id number] [address] [place] [address], [place] [address] Jun, [facility] [address] [id number] [address] [place] [address], [place] [address] Jun, [facility] [address] [id number] [address] [place] [address], [place] [address] Jun, [facility] [address] [id number] [address] [place] [address], [place] [address] May, [facility] [address] [id number] [address] [place] [address], [place] [address] May, [facility] [address] [id number] [address] [place] [address], [place] [address] May, [facility] [address] [id number] [address] [place] [address], [place] [address] May, [facility] [address] [id number] [address] [place] [address], [place] [address] May, [facility] [address] [id number] [address] [place] [address], [place] [address] May, [facility] [address] [id number] [address] [place] [address], [place] [address] May, [facility] [address] [id number] [address] [place] [address], [place] [address] May, [facility] [address] [id number] [address] [place] [address], [place] [address] May, [facility] [address] [id number] [address] [place] [address], [place] [address] May, [facility] [address] [id number] [address] [place] [address], [place] [address] May, [facility] [address] [id number] [address] [place] [address], [place] [address] May, [facility] [address] [id number] [address] [place] [address], [place] [address] May, [facility] [address] [id number] [address] [place] [address], [place] [address] Apr, [facility] [address] [id number] [facility] [place] [address] Apr, [facility] [address] [id number] [facility] [place] [address] Apr, [facility] [address] [id number] [facility] [place] [address] Apr, [facility] [address] [id number] [facility] [place] [address] Apr, [facility] [address] [id number] [facility] [place] [address] Apr, [facility] [address] [id number] [facility] [place] [address] Apr, [facility] [address] [id number] [facility] [place] [address] Apr, [facility] [address] [id number] [address] [place] [address], [place] [address] Apr, [facility] [address] [id number] [address] [place] [address], [place] [address] March, [facility] [address] [id number] [address] [place] [address], [place] [address] March, [facility] [address] [id number] [address] [place] [address], [place] [address] March, [facility] [address] [id number] [address] [place] [address], [place] [address] March, [facility] [address] [id number] [address] [place] [address], [place] [address] March, [facility] [address] [id number] [address] [place] [address], [place] [address] March, [facility] [address] [id number] [facility] [place] [address] March, [facility] [address] [id number] [address] [place] [address], [place] [address] March, [facility] [address] [id number] [facility] [place] [address] March, [facility] [address] [id number] [address] [place] [address], [place] [address] March, [facility] [address] [id number] [address] [place] [address], [place] [address] March, [facility] [address] [id number] [address] [place] [address], [place] [address] March, [facility] [address] [id number] [address] [place] [address], [place] [address] March, [facility] [address] [id number] [address] [place] [address], [place] [address] March, [facility] [address] [id number] [address] [place] [address], [place] [address] March, [facility] [address] [id number] [address] [place] [address], [place] [address] March, [facility] [address] [id number] [address] [place] [address], [place] [address] March, [facility] [address] [id number] [address] [place] [address], [place] [address] March, [facility] [address] [id number] [address] [place] [address], [place] [address] March, [facility] [address] [id number] [address] [place] [address], [place] [address] March, [facility] [address] [id number] [address] [place] [address], [place] [address] Feb, [facility] [address] [id number] [address] [place] [address], [place] [address] Feb, [facility] [address] [id number] [address] [place] [address], [place] [address] Feb, [facility] [address] [id number] [facility] [place] [address] 24 Feb, 2014 [facility] [address] [id number] [facility] [place] [address] Feb, [facility] [address] [id number] [facility] [place] [address] Feb, [facility] [address] [id number] [address] [place] [address], [place] [address] Feb, [facility] [address] [id number] [address] [place] [address], [place] [address] Feb, [facility] [address] [id number] [address] [place] [address], [place] [address] Jan, [facility] [address] [id number] [address] [place] [address], [place] [address] Jan, [facility] [address] [id number] [address] [place] [address], [place] [address] Jan, [facility] [address] [id number] [address] [place] [address], [place] [address] Jan, [facility] [address] [id number] [address] [place] [address], [place] [address] Jan, [facility] [address] [id number] [address] [place] [address], [place] [address] Jan, [facility] [address] [id number] [address] [place] [address], [place] [address] Jan, [facility] [address] [id number] [address] [place] [address], [place] [address] Jan, [facility] [address] [id number] [address] [place] [address], [place] [address] Jan, [facility] [address] [id number] [address] [place] [address], [place] [address] Jan, [facility] [address] [id number] [address] [place] [address], [place] [address] Dec, [facility] [address] [id number] [facility] [place] [address] Dec, [facility] [address] [id number] [address] [place] [address], [place] [address] Dec, [facility] [address] [id number] [facility] [place] [address] Dec, [facility] [address] [id number] [address] [place] [address], [place] [address] Dec, [facility] [address] [id number] [address] [place] [address], [place] [address] Dec, [facility] [address] [id number] [address] [place] [address], [place] [address] Dec, [facility] [address] [id number] [address] [place] [address], [place] [address] Dec, [facility] [address] [id number] [address] [place] [address], [place] [address] Nov, [facility] [address] [id number] [address] [place] [address], [place] [address] Nov, [facility] [address] [id number] [address] [place] [address], [place] [address] Nov, [facility] [address] [id number] [address] [place] [address], [place] [address] Nov, [facility] [address] [id number] [address] [place] [address], [place] [address] Nov, [facility] [address] [id number] [address] [place] [address], [place] [address] Nov, [facility] [address] [id number] [address] [place] [address], [place] [address] Nov, [facility] [address] [id number] [address] [place] [address], [place] [address] Nov, [facility] [address] [id number] [address] [place] [address], [place] [address] Nov, [facility] [address] [id number] [address] [place] [address], [place] [address] Nov, [facility] [address] [id number] [address] [place] [address], [place] [address] Nov, [facility] [address] [id number] [address] [place] [address], [place] [address] Nov, [facility] [address] [id number] [address] [place] [address], [place] [address] Nov, [facility] [address] [id number] [address] [place] [address], [place] [address] Oct, [facility] [address] [id number] [address] [place] [address], [place] [address] Oct, [facility] [address] [id number] [address] [place] [address], [place] [address] Oct, [facility] [address] [id number] [address] [place] [address], [place] [address] Oct, [facility] [address] [id number] [address] [place] [address], [place] [address] Oct, [facility] [address] [id number] [address] [place] [address], [place] [address] Oct, [facility] [address] [id number] [address] [place] [address], [place] [address] 18 Oct, 2013 [facility] [address] [id number] [address] [place] [address], [place] [address] 18 Oct, 2013 [facility] [address] [id number] [address] [place] [address], [place] [address] 17 Oct, 2013 [facility] [address] [id number] [address] [place] [address], [place] [address] 17 Oct, 2013 [facility] [address] [id number] [address] [place] [address], [place] [address] Oct, [facility] [address] [id number] [address] [place] [address], [place] [address] Oct, [facility] [address] [id number] [address] [place] [address], [place] [address] Oct, [facility] [address] [id number] [address] [place] [address], [place] [address] Oct, [facility] [address] [id number] [address] [place] [address], [place] [address] Sep, [facility] [address] [id number] [address] [place] [address], [place] [address] Sep, [facility] [address] [id number] [address] [place] [address], [place] [address] Sep, [facility] [address] [id number] [address] [place] [address], [place] [address] Sep, [facility] [address] [id number] [address] [place] [address], [place] [address] Sep, [facility] [address] [id number] [address] [place] [address], [place] [address] Sep, [facility] [address] [id number] [address] [place] [address], [place] [address] Sep, [facility] [address] [id number] [address] [place] [address], [place] [address] Sep, [facility] [address] [id number] [address] [place] [address], [place] [address] Sep, [facility] [address] [id number] [address] [place] [address], [place] [address] Sep, [facility] [facility] [address] [id number] [address] [place] [address], [place] [address] Aug, [facility] [address] [id number] [address] [place] [address], [place] [address] Aug, [facility] [address] [id number] [address] [address] 24 Aug, 2013 [facility] [address] [id number] [address] [place] [address], [place] [address] 24 Aug, 2013 [facility] [address] [id number] [address] [place] [address] Aug, [facility] [address] [id number] [address] [place] [address] Aug, [facility] [address] [id number] [address] [place] [address] Aug, [facility] [address] [id number] [address] [place] [address], [place] [address] Aug, [facility] [address] [id number] [address] [place] [address] Aug, [facility] [address] [id number] [address] [place] [address] Aug, [facility] [address] [id number] [address] [place] [address] 18 Aug, 2013 [facility] [address] [id number] [address] [place] [address] 18 Aug, 2013 [facility] [address] [id number] [address] [place] [address] 18 Aug, 2013 [facility] [address] [id number] [address] [place] [address] 18 Aug, 2013 [facility] [address] [id number] [address] [place] [address] 17 Aug, 2013 [facility] [address] [id number] [address] [place] [address], [place] [address] 14 Aug, 2013 [facility] [address] [id number] [address] [place] [address] 14 Aug, 2013 [facility] [address] [id number] [address] [place] [address] Aug, [facility] [address] [id number] [address] [place] [address], [place] [address] 20 Jul, 2012 [facility] [address] [id number] [address] [place] [address], [place] [address] 19 Jul, 2012 [facility] [address] [id number] [address] [place] [address], [place] [address] 18 Jul, 2013 [facility] [address] [id number] [address] [place] [address], [place] [address] 11 Jul, 2013 [facility] [address] [id number] [address] [place] [address], [place] [address] 11 Jul, 2013 [facility] [address] [id number] [address] [place] [address], [place] [address] Jun, [facility] [address] [id number] [address] [place] [address], [place] [address] Jun, [facility] [address] [id number] [address] [place] [address], [place] [address] Jun, [facility] [address] [id number] [address] [place] [address], [place] [address] 15 Jun, 2013 [facility] [address] [id number] [address] [place] [address], [place] [address] Jun, [facility] [address] [id number] [address] [place] [address], [place] [address] Jun, [facility] [address] [id number] [address] [place] [address], [place] [address] Jun, [facility] [address] [id number] [address] [place] [address], [place] [address] Jun, [facility] [address] [id number] [address] [place] [address], [place] [address] Jun, [facility] [address] [id number] [address] [place] [address], [place] [address] Jun, [facility] [address] [id number] [address] [place] [address], [place] [address] May, [facility] [address] [id number] [address] [place] [address], [place] [address] May, [facility] [address] [id number] [address] [place] [address], [place] [address] May, [facility] [address] [id number] [address] [place] [address], [place] [address] May, [facility] [address] [id number] [address] [place] [address], [place] [address] May, [facility] [address] [id number] [address] [place] [address], [place] [address] 16 May, 2013 [facility] [address] [id number] [address] [place] [address], [place] [address] May, [facility] [address] [id number] [address] [place] [address], [place] [address] May, [facility] [address] [id number] [address] [place] [address], [place] [address] May, [facility] [address] [id number] [address] [place] [address], [place] [address] Apr, [facility] [address] [id number] [address] [place] [address], [place] [address] Apr, [facility] [address] [id number] [address] [place] [address], [place] [address] Apr, [facility] [address] [id number] [address] [place] [address], [place] [address] Apr, [facility] [address] [id number] [address] [place] [address], [place] [address] Apr, [facility] [address] [id number] [address] [place] [address], [place] [address] Apr, [facility] [address] [id number] [address] [place] [address], [place] [address] Apr, [facility] [address] [id number] [address] [place] [address], [place] [address] March, [facility] [address] [id number] [address] [place] [address], [place] [address] Feb, [facility] [address] [id number] [address] [place] [address], [place] [address] Feb, [facility] [address] [id number] [address] [place] [address], [place] [address] Feb, [facility] [address] [id number] [address] [place] [address], [place] [address] Jan, [facility] [address] [id number] [address] [place] [address], [place] [address] Jan, [facility] [address] [id number] [address] [place] [address], [place] [address] Jan, [facility] [address] [id number] [address] [place] [address], [place] [address] 14 Jan, 2013 [facility] [address] [id number] [address] [place] [address], [place] [address] Jan, [facility] [address] [id number] [address] [place] [address], [place] [address] 08 Jan, 2013 [facility] [address] [id number] [address] [place] [address], [place] [address] Jan, [facility] [address] [id number] [address] [place] [address], [place] [address] Jan, [facility] [address] [id number] [address] [place] [address], [place] [address] Dec, [facility] [address] [id number] [address] [place] [address], [place] [address] Dec, [facility] [address] [id number] [address] [place] [address], [place] [address] Dec, [facility] [address] [id number] [address] [place] [address], [place] [address] Dec, [facility] [address] [id number] [address] [place] [address], [place] [address] 07 Dec, 2012 [facility] [address] [id number] [address] [place] [address], [place] [address] 06 Dec, 2012 [facility] [address] [id number] [address] [place] [address], [place] [address] 05 Dec, 2012 [facility] [address] [id number] [address] [place] [address], [place] [address] Nov, [facility] [address] [id number] [address] [place] [address], [place] [address] 24 Nov, 2012 [facility] [address] [id number] [address] [place] [address], [place] [address] 18 Nov, 2012 [facility] [address] [id number] [address] [place] [address], [place] [address] Nov, [facility] [address] [id number] [address] [place] [address], [place] [address] Nov, [facility] [address] [id number] [address] [place] [address], [place] [address] Nov, [facility] [address] [id number] [address] [place] [address], [place] [address] Nov, [facility] [address] [id number] [address] [place] [address], [place] [address] Oct, [facility] [address] [id number] [address] [place] [address], [place] [address] Oct, [facility] [address] [id number] [address] [place] [address], [place] [address] Oct, [facility] [address] [id number] [address] [place] [address], [place] [address] Oct, [facility] [address] [id number] [address] [place] [address], [place] [address] 17 Oct, 2012 [facility] [address] [id number] [address] [place] [address] Oct, [facility] [address] [id number] [address] [place] [address], [place] [address] Oct, [facility] [address] [id number] [address] [place] [address], [place] [address] Oct, [facility] [address] [id number] [address] [place] [address], [place] [address] Oct, [facility] [address] [id number] [address] [place] [address], [place] [address] Oct, [facility] [address] [id number] [address] [place] [address], [place] [address] Oct, [facility] [address] [id number] [address] [place] [address], [place] [address] Oct, [facility] [address] [id number] [address] [place] [address], [place] [address] Sep, [facility] [address] [id number] [address] [place] [address], [place] [address] Sep, [facility] [address] [id number] [address] [place] [address] Sep, [facility] [address] [id number] [address] [place] [address], [place] [address] Sep, [facility] [address] [id number] [address] [place] [address] Sep, [facility] [address] [id number] [address] [place] [address] Sep, [facility] [address] [id number] [address] [place] [address] Sep, [facility] [address] [id number] [address] [place] [address] Sep, [facility] [address] [id number] [address] [place] [address], [place] [address] Sep, [facility] [address] [id number] [address] [place] [address], [place] [address] Sep, [facility] [address] [id number] [address] [place] [address], [place] [address] Sep, [facility] [address] [id number] [address] [place] [address], [place] [address] Aug, [facility] [address] [id number] [address] [place] [address], [place] [address] Aug, [facility] [address] [id number] [address] [place] [address], [place] [address] Aug, [facility] [address] [id number] [address] [place] [address], [place] [address] Aug, [facility] [address] [id number] [address] [place] [address], [place] [address] Aug, [facility] [address] [id number] [address] [place] [address], [place] [address] Aug, [facility] [address] [id number] [address] [place] [address], [place] [address] Aug, [facility] [address] [id number] [address] [place] [address], [place] [address] Aug, [facility] [address] [id number] [address] [place] [address], [place] [address] Aug, [facility] [address] [id number] [address] [place] [address], [place] [address] Aug, [facility] [address] [id number] [address] [place] [address], [place] [address] 22 Jul, 2012 [facility] [address] [id number] [address] [place] [address], [place] [address] 20 Jul, 2012 [facility] [address] [id number] [address] [place] [address], [place] [address] 10 Jul, 2012 [facility] [address] [id number] [address] [place] [address], [place] [address] Jul, [facility] [address] [id number] [address] [place] [address], [place] [address] Jun, [facility] [address] [id number] [address] [place] [address], [place] [address] Jun, [facility] [address] [id number] [address] [place] [address], [place] [address] Jun, [facility] [address] [id number] [address] [place] [address], [place] [address] Jun, [facility] [address] [id number] [address] [place] [address], [place] [address] Jun, [facility] [address] [id number] [address] [place] [address], [place] [address] Jun, [facility] [address] [id number] [address] [place] [address], [place] [address] Jun, [facility] [address] [id number] [address] [place] [address], [place] [address] May, [facility] [address] [id number] [address] [place] [address], [place] [address] May, [facility] [address] [id number] [address] [place] [address], [place] [address] May, [facility] [address] [id number] [address] [place] [address], [place] [address] May, [facility] [address] [id number] [address] [place] [address], [place] [address] May, [facility] [address] [id number] [address] [place] [address], [place] [address] Apr, [facility] [address] [id number] [address] [place] [address], [place] [address] Apr, [facility] [address] [id number] [address] [place] [address], [place] [address] Apr, [facility] [address] [id number] [address] [place] [address], [place] [address] Apr, [facility] [address] [id number] [address] [place] [address], [place] [address] Apr, [facility] [address] [id number] [address] [place] [address], [place] [address] March, [facility] [address] [id number] [address] [place] [address], [place] [address] March, [facility] [address] [id number] [address] [place] [address], [place] [address] March, [facility] [address] [id number] [address] [place] [address], [place] [address] March, [facility] [address] [id number] [address] [place] [address], [place] [address] March, [facility] [address] [id number] [address] [place] [address], [place] [address] March, [facility] [address] [id number] [address] [place] [address], [place] [address] March, [facility] [address] [id number] [address] [place] [address], [place] [address] March, [facility] [address] [id number] [address] [place] [address], [place] [address] March, [facility] [address] [id number] [address] [place] [address], [place] [address] March, [facility] [address] [id number] [address] [place] [address], [place] [address] Feb, [facility] [address] [id number] [address] [place] [address], [place] [address] Feb, [facility] [address] [id number] [address] [place] [address], [place] [address] Feb, [facility] [address] [id number] [address] [place] [address], [place] [address] Feb, [facility] [address] [id number] [address] [place] [address], [place] [address] Feb, [facility] [address] [id number] [address] [place] [address], [place] [address] Feb, [facility] [address] [id number] [address] [place] [address], [place] [address] Feb, [facility] [address] [id number] [address] [place] [address], [place] [address] Feb, [facility] [address] [id number] [address] [place] [address], [place] [address] Feb, [facility] [address] [id number] [address] [place] [address], [place] [address] Jan, [facility] [address] [id number] [address] [place] [address], [place] [address] Jan, [facility] [address] [id number] [address] [place] [address], [place] [address] 05 Jan, 2012 [facility] [address] [id number] [address] [place] [address], [place] [address] Jan, [facility] [address] [id number] [address] [place] [address], [place] [address] Dec, [facility] [address] [id number] [address] [place] [address], [place] [address] Dec, [facility] [address] [id number] [address] [place] [address], [place] [address] Nov, [facility] [address] [id number] [address] [place] [address], [place] [address] Nov, [facility] [address] [id number] [address] [place] [address], [place] [address] Nov, [facility] [address] [id number] [address] [place] [address], [place] [address] 16 Nov, 2011 [facility] [address] [id number] [address] [place] [phone] Nov, [facility] [address] [id number] [address] [place] [phone] Oct, [facility] [address] [id number] [address] [place] [phone] Oct, [facility] [address] [id number] [address] [place] [phone] Oct, [facility] [address] [id number] [address] [place] [phone] Oct, [facility] [address] [id number] [address] [place] [id number] Oct, [facility] [address] [id number] [address] [place] [phone] Oct, [facility] [address] [id number] [address] [place] [id number] Oct, [facility] [address] [id number] [address] [place] [phone] Oct, [facility] [address] [id number] [address] [place] [id number] Sep, IMMUNIZATIONS No Known Immunizations SOCIAL HISTORY Never Assessed REASON FOR VISIT PLAN OF CARE VITAL SIGNS MEDICATIONS Unknown Medications RESULTS No Results PROCEDURES No Known procedures INSTRUCTIONS MEDICATIONS ADMINISTERED No Known Medications MEDICAL (GENERAL) HISTORY Type Description Date Medical History 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
--- OUTSIDE RECORDS SUMMARY | 2020-06-18 15:15 | XMS REPORT ---
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 Name Role Phone ELIZABETH SHARIF Unavailable PROBLEMS Type Condition ICD9-CM Code [id number] Code Onset Dates Condition S tatus SNOMED Code Problem Coronary artery disease I25.10 Active 87720517 Problem Hypertension I10 Active 5020319 3 Problem Other chronic pain G89.29 Active 8 5617404 Problem Hyperlipidemia E78.5 Active 12645 004 Problem Type 2 diabetes mellitus wit hout complication, without long-term current use of insulin E11.9 Active 193484916 Problem Low back pain M54.5 Active 189899 009 Problem Pharyngeal dysphagia R13.13 Active 97858079262441 Problem Anxiety F41.9 Active 43889607 Problem Peripheral vascular disease I73.9 Ac tive 704110466 Problem Suprapubic catheter Z93.59 Active 793990275 Problem Reactive depression F32.9 Active 21539809 Problem Neurogenic bladder N31.9 Active 3 49968213 Problem Ventral hernia without obstruction or gangrene K43 .9 Active 881002767 Problem Insomnia G47.00 Active 545630815 Problem Paroxysmal atrial fibrillation I48.0 Active 084076446 Problem Postmenopausal atrophic vaginitis N95.2 Active 37829802 Problem Encounter for suprapubic catheter care Z43.5 Active 544536024 ALLERGIES No Information ENCOUNTERS Encounter Location Date Diagnosis [facility] [address] [place] [id number] Jun, [facility] [address] [facility] [id number] [address] [address] Jun, Anxiety F41.9 [facility] [address] [place] [id number] Jun, Neurogenic bladder N31.9 and Anxiety F41 .9 [facility] [address] [place] [id number] 30 May, 2019 Anxiety F41.9 [place] [address] [id number] [address] [place] [id number] May, Dysuria R30.0 [place] [address] [id number] [address] [place] [phone] May, Strain of right shoulder, scherer bsequent encounter S46.911D and Anxiety F41.9 [place] [address] [id number] [place] [id number] Apr, [facility] [address] [place] [id number] Apr, Strain of right shoulder, subsequent enc ounter S46.911D [place] [facility] [id number] [place] [id number] 14 Apr, 2019 Strain of right shoulder, scherer bsequent encounter S46.911D and Anxiety F41.9 Via [facility] [address] [place] [id number] 13 Apr, 2019 Type 2 diabetes mellitus without complic ation, without long-term current use of insulin E11.9 and Neurogenic bladder N31.9 [facility] [address] [place] [id number] Apr, Strain of right shoulder, subsequent enc ounter S46.911D ; History of GI bleed Z87.19 ; Neurogenic bladder N31.9 and Reactive depression F32.9 [place] [address] [id number] [address] [place] [id number] 10 Apr, 2019 Acute pain of left shoulder M25.512 [place] [address] [id number] [address] [place] [id number] 07 Apr, 2019 [place] [address] [id number] [address] [place] [id number] 06 Apr, 2019 Anxiety F41.9 and 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 [facility] [address] [place] [id number] March, Gastrointestinal hemorrhage associated w ith acute gastritis K29.01 [facility] [address] [id number] [address] [place] [id number] March, Via [facility] [address] [place] [id number] March, Bronchitis J40 [facility] [address] [id number] [address] [place] [phone] March, Cough R05 [facility] [address] [id number] [address] [place] [id number] March, Other chronic pain G89.29 [facility] [address] [id number] [address] [place] [phone] March, Anxiety F41.9 [facility] [address] [id number] [address] [place] [id number] March, [facility] [address] [id number] [address] [place] [id number] Feb, Other chronic pain G89.29 [facility] [address] [id number] [address] [place] [phone] Feb, Anxiety F41.9 [facility] [address] [id number] [address] [place] [phone] Feb, Other chronic pain G89.29 Via [facility] [address] [place] [id number] Feb, Neurogenic bladder N31.9 and Suprapubic catheter Z93.59 [facility] [address] [id number] [address] [place] [phone] Jan, Anxiety F41.9 [facility] [address] [id number] [address] [place] [phone] Dec, Anxiety F41.9 [facility] [address] [id number] [address] [place] [id number] Dec, Other chronic pain G89.29 an d Anxiety F41.9 [facility] [address] [id number] [address] [place] [phone] Dec, Via [employer] [address] [place] [id number] Dec, Neurogenic bladder N31.9 and Suprapubic catheter Z93.59 [facility] [address] [id number] [address] [place] [id number] Nov, Other chronic pain G89.29 an d Anxiety F41.9 [facility] [address] [id number] [address] [place] [phone] Nov, Via [employer] [address] [place] [id number] Nov, Suprapubic catheter Z93.59 [facility] [address] [id number] [address] [place] [phone] Oct, Other chronic pain G89.29 an d Anxiety F41.9 [facility] [address] [id number] [address] [place] [phone] Oct, [facility] [address] [id number] [address] [place] [phone] Oct, Suprapubic catheter Z93.59 [facility] [address] [id number] [address] [place] [phone] Oct, Via [employer] [address] [place] [id number] Oct, [facility] [address] [id number] [address] [place] [id number] Oct, Anxiety F41.9 [facility] [address] [id number] [address] [place] [phone] Oct, Anxiety F41.9 [facility] [address] [place] [id number] Oct, Other chronic pain G89.29 [facility] [address] [id number] [address] [place] [id number] 14 Sep, 2018 Other chronic pain G89.29 Via [employer] [address] [place] [id number] Sep, Suprapubic catheter Z93.59 and Cervicalg ia M54.2 [facility] [address] [id number] [address] [place] [phone] Sep, [facility] [address] [id number] [address] [place] [phone] Sep, [facility] [address] [id number] [address] [place] [id number] Sep, Via [facility] [address] [place] [id number] Aug, Cystitis N30.90 [facility] [address] [id number] [address] [place] [id number] Aug, [facility] [address] [id number] [address] [place] [phone] Aug, Other chronic pain G89.29 [facility] [address] [id number] [address] [place] [phone] Aug, Via [employer] [address] [place] [id number] Aug, Encounter for suprapubic catheter care Z 43.5 [facility] [address] [id number] [address] [place] [phone] Jul, Via [employer] [address] [place] [id number] Jul, [facility] [address] [id number] [address] [place] [id number] Jul, Other chronic pain G89.29 [facility] [address] [id number] [address] [place] [phone] Jul, [facility] [address] [id number] [address] [place] [phone] Jul, Via [facility] [address] [place] [id number] Jun, Postmenopausal atrophic vaginitis N95.2 [place] [address] [id number] [address] [place] [phone] Jun, Other chronic pain G89.29 [place] [address] [id number] [address] [place] [phone] Jun, Via [facility] [address] [place] [id number] May, Anxiety F41.9 ; Type 2 diabetes mellitus without complication, without long-term current use of insulin E11.9 ; Hypertension I10 ; Low back pain M54.5 ; Paroxysmal atrial fibrillation I48.0 and 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 [place] [address] [id number] [address] [place] [id number] May, Other chronic pain G89.29 [facility] [address] [place] [id number] May, Low back pain M54.5 [place] [address] [id number] [address] [place] [phone] May, [place] [address] [id number] [address] [place] [phone] Apr, Other chronic pain G89.29 [place] [address] [id number] [address] [place] [phone] Apr, [place] [address] [id number] [address] [place] [id number] Apr, Via [facility] [address] [place] [id number] Apr, Closed compression fracture of L3 lumbar vertebra with routine healing, subsequent encounter S32.030D [facility] [address] [place] [id number] Apr, Low back pain M54.5 [facility] [address] [place] [id number] Apr, Coccydynia M53.3 [facility] [address] [id number] [address] [place] [id number] March, [facility] [address] [id number] [address] [place] [id number] March, Other chronic pain G89.29 [facility] [address] [id number] [address] [place] [phone] March, [facility] [address] [id number] [address] [place] [id number] March, [facility] [address] [id number] [address] [place] [id number] Feb, [facility] [address] [id number] [address] [place] [phone] Feb, Other chronic pain G89.29 Via [employer] [address] [place] [id number] Feb, Other chronic pain G89.29 and Anxiety F4 1.9 [facility] [address] [id number] [address] [place] [phone] Feb, [facility] [address] [id number] [address] [place] [phone] Jan, [facility] [address] [id number] [address] [place] [phone] Jan, [facility] [address] [id number] [address] [place] [phone] Jan, [facility] [address] [id number] [address] [place] [phone] Jan, [facility] [address] [id number] [address] [place] [phone] Dec, Via [employer] [address] [place] [id number] Dec, Peripheral vascular disease I73.9 ; 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 ; Other chronic pain G89.29 ; Anxiety F41.9 ; Reactive depression F32.9 ; Insomnia G47.00 and Type 2 diabetes mellitus without complication, without long-term current use of insulin E11.9 [facility] [place] [facility] ADRIENNE SANCHEZ [id number] [place] [address] Nov, [facility] [address] [id number] [place] [facility] [place] [id number] Nov, Anxiety F41.9 [facility] [address] [facility] [id number] [place] [phone] Nov, [facility] [address] [id number] [place] [facility] [place] [id number] Nov, Anxiety F41.9 [facility] [employer] [address] [place] [id number] Nov, Status post surgery Z98.890 ; Confused R 41.0 ; Anxiety F41.9 and Other chronic pain G89.29 [facility] [address] [id number] [place] [id number] Nov, Other chronic pain G89.29 [place] [address] [id number] [place] [id number] Oct, [place] [address] [id number] [place] [id number] Oct, Other chronic pain G89.29 [facility] [address] [facility] [id number] [place] [id number] Oct, Anxiety F41.9 [facility] [address] [id number] [place] [id number] Sep, Other chronic pain G89.29 [facility] [address] [id number] [place] [id number] Sep, Via [facility] [employer] [address] [place] [id number] Aug, Dysuria R30.0 and Anxiety F41.9 [place] [address] [id number] [place] [id number] 16 Aug, 2017 [facility] [address] [id number] [place] [id number] Aug, Other chronic pain G89.29 [facility] [address] [id number] [address] [place] [id number] Jul, Other chronic pain G89.29 [facility] [address] [id number] [place] [id number] Jun, [facility] [address] [id number] [place] [id number] Jun, Other chronic pain G89.29 [facility] [address] [id number] [address] [place] [id number] Jun, [facility] [address] [id number] [address] [place] [address] May, Other chronic pain G89.29 [facility] [address] [id number] [address] [place] [id number] Apr, Other chronic pain G89.29 [facility] [address] [place] [id number] Apr, Reactive depression F32.9 and Pharyngeal dysphagia R13.13 [facility] [address] [facility] [id number] [place] [phone] Apr, Urinary tract infection with out hematuria, site unspecified N39.0 [facility] [address] [facility] [id number] [place] [phone] March, Other chronic pain G89.29 [facility] [address] [id number] [address] [place] [address] Feb, Other chronic pain G89.29 [facility] [address] [id number] [address] [place] [id number] Feb, [facility] [address] [id number] [place] [id number] Feb, Via [employer] [address] [place] [id number] Feb, Dysuria R30.0 and Ventral hernia without obstruction or gangrene K43.9 [facility] [address] [id number] [address] [place] [address] Jan, Other chronic pain G89.29 [facility] [address] [id number] [place] [id number] Dec, Other chronic pain G89.29 [facility] [address] [id number] [address] [place] [address] Nov, Other chronic pain G89.29 Via [facility] [address] [place] [id number] Nov, Lymphadenitis I88.9 [facility] [address] [id number] [address] [place] [address] Nov, Other chronic pain G89.29 [facility] [address] [id number] [address] [place] [phone] Nov, [facility] [address] [id number] [place] [id number] Nov, Other chronic pain G89.29 Via [facility] [address] [place] [id number] Oct, Low back pain M54.5 ; Hypertension I10 a nd Type 2 diabetes mellitus without complication, without long-term current use of insulin E11.9 [facility] [address] [id number] [address] [place] [phone] Oct, [facility] [address] [id number] [address] [place] [phone] Oct, [facility] [address] [id number] [address] [place] [phone] Oct, [facility] [address] [id number] [address] [place] [phone] Oct, [facility] [address] [id number] [address] [place] [phone] Sep, [facility] [address] [id number] [address] [place] [id number] Sep, [facility] [address] [id number] [address] [place] [id number] Aug, Other chronic pain G89.29 [facility] [address] [id number] [address] [place] [id number] Jul, [facility] [address] [id number] [address] [place] [phone] Jul, [facility] [address] [id number] [address] [place] [id number] Jul, [facility] [address] [id number] [address] [place] [phone] Jun, [facility] [address] [id number] [address] [place] [address] Jun, Via [facility] [address] [place] [id number] Jun, Low back pain M54.5 ; Other chronic pain G89.29 and Coronary artery disease I25.10 [facility] [address] [id number] [address] [place] [id number] Jun, [facility] [address] [id number] [address] [place] [phone] May, [facility] [address] [id number] [address] [place] [id number] May, [facility] [address] [id number] [address] [place] [address] May, Other chronic pain G89.29 [facility] [address] [id number] [address] [place] [id number] May, [facility] [address] [id number] [address] [place] [id number] 28 Apr, 2016 [facility] [address] [id number] [address] [place] [id number] 17 Apr, 2016 Acute cystitis without hemat uria N30.00 [facility] [address] [id number] [address] [place] [id number] 16 Apr, 2016 Acute cystitis without hemat uria N30.00 ; Coronary artery disease I25.10 ; Low back pain M54.5 and Other chronic pain G89.29 [facility] [address] [id number] [address] [place] [id number] 13 Apr, 2016 Other chronic pain G89.29 [facility] [address] [id number] [address] [place] [id number] March, Other chronic pain G89.29 [facility] [address] [id number] [address] [place] [id number] 18 Feb, 2016 [facility] [address] [id number] [address] [place] [id number] 15 Feb, 2016 Arthritis M19.90 [facility] [address] [id number] [address] [place] [phone] Feb, [facility] [address] [id number] [address] [place] [id number] 30 Jan, 2016 [facility] [address] [id number] [address] [place] [id number] Jan, [facility] [address] [id number] [address] [place] [id number] Jan, Other chronic pain G89.29 [facility] [address] [id number] [address] [place] [address] Jan, Hypertension I10 ; Coronary artery disease I25.10 and Insomnia G47.00 [facility] [address] [id number] [address] [place] [id number] Jan, [facility] [address] [id number] [address] [place] [address] Dec, Right hip pain M25.551 [facility] [address] [id number] [address] [place] [id number] Dec, [facility] [address] [id number] [address] [place] [phone] Dec, [facility] [address] [id number] [address] [place] [id number] Dec, [facility] [address] [id number] [address] [place] [id number] Dec, Other chronic pain G89.29 [facility] [address] [id number] [address] [place] [id number] Dec, [facility] [address] [id number] [address] [place] [id number] Nov, [facility] [address] [id number] [address] [place] [id number] Nov, Other chronic pain G89.29 [facility] [address] [id number] [address] [place] [id number] Nov, Right hip pain M25.551 and C oronary artery disease I25.10 [facility] [address] [id number] [address] [place] [id number] Nov, Other chronic pain G89.29 [facility] [address] [id number] [address] [place] [id number] Oct, [facility] [address] [id number] [address] [place] [id number] Oct, [facility] [address] [id number] [address] [place] [id number] Sep, [facility] [address] [id number] [address] [place] [id number] Sep, [facility] [address] [id number] [address] [place] [id number] Aug, [facility] [address] [id number] [address] [place] [id number] Aug, Hypertension I10 ; Coronary artery disease I25.10 and Arthritis M19.90 [facility] [address] [id number] [address] [place] [id number] Jun, [facility] [address] [id number] [address] [place] [id number] Jun, Essential hypertension, jayson gn 401.1 ; Other chronic pain 338.29 and Chronic airway obstruction, not elsewhere classified 496 [facility] [address] [id number] [address] [place] [id number] Jun, [facility] [address] [id number] [address] [place] [id number] Jun, [facility] [address] [id number] [address] [place] [phone] Jun, [facility] [address] [id number] [address] [place] [id number] May, [facility] [address] [id number] [address] [place] [id number] May, [facility] [address] [id number] [address] [place] [id number] Apr, [facility] [address] [id number] [address] [place] [phone] Apr, [facility] [address] [id number] [address] [place] [id number] Apr, [facility] [address] [id number] [address] [place] [id number] March, [facility] [address] [id number] [address] [place] [id number] March, [facility] [address] [id number] [address] [place] [phone] March, [facility] [address] [id number] [address] [place] [address], [place] [id number] March, [facility] [address] [id number] [address] [place] [address], [place] [id number] March, [employer] [facility] [address] [id number] [address] [place] [address], [place] [address] Feb, [facility] [address] [id number] [address] [place] [address], [place] [address] Feb, [facility] [address] [id number] [address] [place] [address], [place] [address] Feb, [facility] [address] [id number] [address] [place] [address], [place] [address] Feb, [facility] [address] [id number] [address] [place] [address], [place] [address] Feb, [facility] [address] [id number] [address] [place] [address], [place] [address] Jan, [facility] [address] [id number] [address] [place] [address], [place] [address] Jan, [facility] [address] [id number] [address] [place] [address], [place] [address] Jan, [facility] [address] [id number] [address] [place] [address], [place] [address] Jan, [facility] [address] [id number] [address] [place] [id number] Jan, [facility] [address] [id number] [address] [place] [address], [place] [address] Jan, [facility] [address] [id number] [address] [place] [address], [place] [address] Dec, [facility] [address] [id number] [address] [place] [address], [place] [address] Dec, [facility] [address] [id number] [address] [place] [address], [place] [id number] 10 Dec, 2014 [facility] [address] [id number] [address] [place] [address], [place] [address] Dec, [facility] [address] [id number] [address] [place] [address], [place] [address] Dec, [facility] [address] [id number] [address] [place] [address], [place] [address] Dec, [facility] [address] [id number] [address] [place] [address], [place] [address] Nov, [facility] [address] [id number] [address] [place] [address], [place] [address] Nov, [facility] [address] [id number] [address] [place] [address], [place] [address] Nov, [facility] [address] [id number] [address] [place] [address], [place] [address] Nov, [facility] [address] [id number] [address] [place] [address], [place] [address] Nov, [facility] [address] [id number] [address] [place] [address], [place] [address] Nov, [facility] [address] [id number] [address] [place] [address], [place] [address] Nov, [facility] [address] [id number] [address] [place] [address], [place] [address] Nov, [facility] [address] [id number] [address] [place] [address], [place] [address] Nov, [facility] [address] [id number] [address] [place] [address], [place] [address] Nov, [facility] [address] [id number] [address] [place] [address], [place] [address] Nov, [facility] [address] [id number] [address] [place] [address], [place] [address] Nov, [facility] [address] [id number] [address] [place] [address], [place] [address] Nov, [facility] [address] [id number] [address] [place] [address], [place] [address] Nov, [facility] [address] [id number] [address] [place] [address], [place] [address] Oct, [facility] [address] [id number] [address] [place] [address], [place] [address] Oct, [facility] [address] [id number] [address] [place] [address], [place] [address] Oct, [facility] [address] [id number] [address] [place] [address], [place] [address] Oct, [facility] [address] [id number] [address] [place] [address], [place] [address] Oct, [facility] [address] [id number] [address] [place] [address], [place] [address] Oct, [facility] [address] [id number] [address] [place] [address], [place] [address] Oct, [facility] [address] [id number] [address] [place] [address], [place] [address] Oct, [facility] [address] [id number] [address] [place] [address], [place] [address] Oct, [facility] [address] [id number] [address] [place] [address], [place] [address] Sep, [facility] [address] [id number] [address] [place] [address], [place] [address] Sep, [facility] [address] [id number] [address] [place] [address], [place] [address] Sep, [facility] [address] [id number] [address] [place] [address], [place] [address] Sep, [facility] [address] [id number] [address] [place] [address], [place] [address] Sep, [facility] [address] [id number] [address] [place] [address], [place] [address] Sep, [facility] [address] [id number] [address] [place] [address], [place] [address] Sep, [facility] [address] [id number] [address] [place] [address], [place] [address] Sep, [facility] [address] [id number] [address] [place] [address], [place] [address] Sep, [facility] [address] [id number] [address] [place] [address], [place] [address] Sep, [facility] [address] [id number] [address] [place] [address], [place] [address] Sep, [facility] [address] [id number] [address] [place] [address], [place] [address] Sep, [facility] [address] [id number] [address] [place] [address], [place] [address] Aug, [facility] [address] [id number] [address] [place] [address], [place] [address] Aug, [facility] [address] [id number] [address] [place] [address], [place] [address] Aug, [facility] [address] [id number] [address] [place] [address], [place] [address] Aug, [facility] [address] [id number] [address] [place] [address], [place] [address] Aug, [facility] [address] [id number] [address] [place] [address], [place] [address] Aug, [facility] [address] [id number] [address] [place] [address], [place] [address] Aug, [facility] [address] [id number] [address] [place] [address], [place] [address] Aug, [facility] [address] [id number] [facility] [place] [address] 30 Jul, 2013 [facility] [address] [id number] [address] [place] [address], [place] [address] 30 Jul, 2013 [facility] [address] [id number] [address] [place] [address], [place] [address] 30 Jul, 2013 [facility] [address] [id number] [address] [place] [address], [place] [address] 30 Jul, 2013 [facility] [address] [id number] [address] [place] [address], [place] [address] 25 Jul, 2013 [facility] [address] [id number] [address] [place] [address], [place] [address] 25 Jul, 2013 [facility] [address] [id number] [address] [place] [address], [place] [address] 15 Jul, 2014 [facility] [address] [id number] [address] [place] [address], [place] [address] 15 Jul, 2013 [facility] [address] [id number] [address] [place] [address], [place] [address] 11 Jul, 2014 [facility] [address] [id number] [address] [place] [address], [place] [address] Jul, [facility] [address] [id number] [address] [place] [address], [place] [address] Jun, [facility] [address] [id number] [address] [place] [address], [place] [address] Jun, [facility] [address] [id number] [address] [place] [address], [place] [address] Jun, [facility] [address] [id number] [address] [place] [address], [place] [address] Jun, [facility] [address] [id number] [address] [place] [address], [place] [address] Jun, [facility] [address] [id number] [address] [place] [address], [place] [address] Jun, [facility] [address] [id number] [facility] [place] [address] Jun, [facility] [address] [id number] [facility] [place] [address] Jun, [facility] [address] [id number] [address] [place] [address], [place] [address] Jun, [facility] [address] [id number] [address] [place] [address], [place] [address] Jun, [facility] [address] [id number] [address] [place] [address], [place] [address] Jun, [facility] [address] [id number] [address] [place] [address], [place] [address] Jun, [facility] [address] [id number] [address] [place] [address], [place] [address] Jun, [facility] [address] [id number] [address] [place] [address], [place] [address] Jun, [facility] [address] [id number] [address] [place] [address], [place] [address] Jun, [facility] [address] [id number] [address] [place] [address], [place] [address] Jun, [facility] [address] [id number] [address] [place] [address], [place] [address] Jun, [facility] [address] [id number] [address] [place] [address], [place] [address] Jun, [facility] [address] [id number] [address] [place] [address], [place] [address] Jun, [facility] [address] [id number] [address] [place] [address], [place] [address] Jun, [facility] [address] [id number] [address] [place] [address], [place] [address] Jun, [facility] [address] [id number] [facility] [place] [address] Jun, [facility] [address] [id number] [facility] [place] [address] May, [facility] [address] [id number] [address] [place] [address], [place] [address] May, [facility] [address] [id number] [address] [place] [address], [place] [address] May, [facility] [address] [id number] [address] [place] [address], [place] [address] May, [facility] [address] [id number] [address] [place] [address], [place] [address] May, [facility] [address] [id number] [address] [place] [address], [place] [address] May, [facility] [address] [id number] [address] [place] [address], [place] [address] May, [facility] [address] [id number] [address] [place] [address], [place] [address] May, [facility] [address] [id number] [address] [place] [address], [place] [address] May, [facility] [address] [id number] [address] [place] [address], [place] [address] May, [facility] [address] [id number] [address] [place] [address], [place] [address] May, [facility] [address] [id number] [address] [place] [address], [place] [address] May, [facility] [address] [id number] [address] [place] [address], [place] [address] May, [facility] [address] [id number] [address] [place] [address], [place] [address] Apr, [facility] [address] [id number] [address] [place] [address], [place] [address] Apr, [facility] [address] [id number] [facility] [place] [address] Apr, [facility] [address] [id number] [facility] [place] [address] Apr, [facility] [address] [id number] [facility] [place] [address] Apr, [facility] [address] [id number] [facility] [place] [address] Apr, [facility] [address] [id number] [facility] [place] [address] Apr, [facility] [address] [id number] [address] [place] [address], [place] [address] Apr, [facility] [address] [id number] [facility] [place] [address] Apr, [facility] [address] [id number] [address] [place] [address], [place] [address] March, [facility] [address] [id number] [address] [place] [address], [place] [address] March, [facility] [address] [id number] [address] [place] [address], [place] [address] March, [facility] [address] [id number] [address] [place] [address], [place] [address] March, [facility] [address] [id number] [address] [place] [address], [place] [address] March, [facility] [address] [id number] [facility] [place] [address] March, [facility] [address] [id number] [address] [place] [address], [place] [address] March, [facility] [address] [id number] [facility] [place] [address] March, [facility] [address] [id number] [address] [address] March, [facility] [address] [id number] [address] [place] [address], [place] [address] March, [facility] [address] [id number] [address] [place] [address], [place] [address] March, [facility] [address] [id number] [address] [place] [address], [place] [address] March, [facility] [address] [id number] [address] [place] [address], [place] [address] March, [facility] [address] [id number] [address] [place] [address], [place] [address] March, [facility] [address] [id number] [address] [place] [address], [place] [address] March, [facility] [address] [id number] [address] [place] [address], [place] [address] March, [facility] [address] [id number] [address] [place] [address], [place] [address] March, [facility] [address] [id number] [address] [place] [address], [place] [address] March, [facility] [address] [id number] [address] [place] [address], [place] [address] March, [facility] [address] [id number] [address] [place] [address], [place] [address] March, [facility] [address] [id number] [address] [place] [address], [place] [address] Feb, [facility] [address] [id number] [address] [place] [address], [place] [address] Feb, [facility] [address] [id number] [address] [place] [address], [place] [address] Feb, [facility] [address] [id number] [address] [place] [address], [place] [address] Feb, [facility] [place] [address] [id number] [facility] [place] [address] Feb, [facility] [address] [id number] [address] [place] [address], [place] [address] Feb, [facility] [address] [id number] [address] [place] [address], [place] [address] Feb, [facility] [address] [id number] [address] [place] [address], [place] [address] Feb, [facility] [address] [id number] [address] [place] [address], [place] [address] Jan, [facility] [address] [id number] [address] [place] [address], [place] [address] Jan, [facility] [address] [id number] [address] [place] [address], [place] [address] Jan, [facility] [address] [id number] [address] [place] [address], [place] [address] Jan, [facility] [address] [id number] [address] [place] [address], [place] [address] Jan, [facility] [address] [id number] [address] [place] [address], [place] [address] Jan, [facility] [address] [id number] [address] [place] [address], [place] [address] Jan, [facility] [address] [id number] [address] [place] [address], [place] [address] Jan, [facility] [address] [id number] [address] [place] [address], [place] [address] Jan, [facility] [address] [id number] [address] [place] [address], [place] [address] Jan, [facility] [address] [id number] [address] [place] [address], [place] [address] Dec, [facility] [address] [id number] [address] [place] [address], [place] [address] Dec, [facility] [address] [id number] [address] [place] [address], [place] [address] Dec, [facility] [address] [id number] [address] [place] [address], [place] [address] Dec, [facility] [address] [id number] [address] [place] [address], [place] [address] Dec, [facility] [address] [id number] [address] [place] [address], [place] [address] Dec, [facility] [address] [id number] [address] [place] [address], [place] [address] Dec, [facility] [address] [id number] [address] [place] [address], [place] [address] Dec, [facility] [address] [id number] [address] [place] [address], [place] [address] Nov, [facility] [address] [id number] [address] [place] [address], [place] [address] Nov, [facility] [address] [id number] [address] [place] [address], [place] [address] Nov, [facility] [address] [id number] [address] [place] [address], [place] [id number] Nov, [facility] [address] [id number] [address] [place] [address], [place] [address] Nov, [facility] [address] [id number] [address] [place] [address], [place] [id number] Nov, [facility] [address] [id number] [address] [place] [address], [place] [id number] Nov, [facility] [address] [id number] [address] [place] [address], [place] [id number] Nov, [facility] [address] [id number] [address] [place] [address], [place] [id number] Nov, [facility] [address] [id number] [address] [place] [address], [place] [address] Nov, [facility] [place] [address] [id number] [address] [place] [address], [place] [id number] Nov, [facility] [address] [id number] [address] [place] [address], [place] [id number] Nov, [facility] [place] [address] [id number] [address] [place] [address], [place] [id number] Nov, [facility] [address] [id number] [address] [place] [address], [place] [id number] Oct, [facility] [place] [address] [id number] [address] [place] [address], [place] [id number] Oct, [facility] [address] [id number] [address] [place] [address], [place] [id number] Oct, [facility] [address] [id number] [address] [place] [address], [place] [id number] Oct, [facility] [address] [id number] [address] [place] [address], [place] [id number] Oct, [facility] [address] [id number] [address] [place] [address], [place] [id number] Oct, [facility] [address] [id number] [address] [place] [address], [place] [id number] Oct, [facility] [address] [id number] [address] [place] [address], [place] [id number] Oct, [facility] [address] [id number] [address] [place] [address], [place] [id number] Oct, [facility] [address] [id number] [address] [place] [address], [place] [id number] Oct, [facility] [address] [id number] [address] [place] [address], [place] [id number] Oct, [facility] [place] [address] [id number] [address] [place] [id number] Oct, [facility] [address] [id number] [address] [place] [address], [place] [id number] Oct, [facility] [address] [id number] [address] [place] [id number] Oct, [facility] [address] [id number] [address] [place] [address], [place] [id number] Sep, [facility] [address] [id number] [address] [place] [id number] Sep, [facility] [address] [id number] [address] [place] [address], [place] [id number] Sep, [facility] [address] [id number] [address] [place] [id number] Sep, [facility] [address] [id number] [address] [place] [id number] Sep, [facility] [address] [id number] [address] [place] [id number] Sep, [facility] [address] [id number] [address] [place] [id number] Sep, [facility] [address] [id number] [address] [place] [id number] Sep, [facility] [address] [id number] [address] [place] [id number] Sep, [facility] [address] [id number] [address] [place] [id number] Sep, [facility] [address] [id number] [address] [place] [id number] Aug, [facility] [address] [id number] [address] [place] [id number] Aug, [facility] [address] [id number] [address] [place] [id number] Aug, [facility] [address] [id number] [address] [place] [address], [place] [id number] 24 Aug, 2012 [facility] [address] [id number] [address] [place] [address], [place] [id number] 23 Aug, 2012 [facility] [address] [id number] [address] [place] [address], [place] [id number] 23 Aug, 2012 [facility] [address] [id number] [address] [place] [address], [place] [id number] 23 Aug, 2012 [facility] [address] [id number] [address] [place] [address], [place] [id number] 23 Aug, 2012 [facility] [address] [id number] [address] [place] [address], [place] [address] Aug, 2012 [facility] [address] [id number] [address] [place] [address], [place] [id number] 22 Aug, 2012 [facility] [address] [id number] [address] [place] [address], [place] [id number] 18 Aug, 2012 [facility] [address] [id number] [address] [place] [address], [place] [id number] 18 Aug, 2012 [facility] [address] [id number] [address] [place] [address], [place] [id number] 18 Aug, 2012 [facility] [place] [address] [id number] [address] [place] [address], [place] [id number] 18 Aug, 2012 [facility] [address] [id number] [address] [place] [address], [place] [id number] 17 Aug, 2012 [facility] [address] [id number] [address] [place] [address], [place] [id number] 14 Aug, 2012 [facility] [address] [id number] [address] [place] [address], [place] [address] 14 Aug, 2012 [facility] [address] [id number] [address] [place] [address], [place] [address] Aug, [facility] [address] [id number] [address] [place] [address], [place] [address] 20 Jul, 2013 [facility] [address] [id number] [address] [place] [address], [place] [address] 19 Jul, 2012 [facility] [address] [id number] [address] [place] [address], [place] [address] 18 Jul, 2013 [facility] [address] [id number] [address] [place] [address], [place] [address] 11 Jul, 2013 [facility] [address] [id number] [address] [place] [address], [place] [address] 11 Jul, 2013 [facility] [address] [id number] [address] [place] [address], [place] [address] Jun, [facility] [address] [id number] [address] [place] [address], [place] [address] Jun, [facility] [address] [id number] [address] [place] [address], [place] [address] Jun, [facility] [address] [id number] [address] [place] [address], [place] [address] 15 Jun, 2013 [facility] [address] [id number] [address] [place] [address], [place] [address] Jun, [facility] [address] [id number] [address] [place] [address], [place] [address] Jun, [facility] [address] [id number] [address] [place] [address], [place] [address] Jun, [facility] [address] [id number] [address] [place] [address], [place] [address] Jun, [facility] [address] [id number] [address] [place] [address], [place] [address] Jun, [facility] [address] [id number] [address] [place] [address], [place] [address] Jun, [facility] [address] [id number] [address] [place] [address], [place] [address] May, [facility] [address] [id number] [address] [place] [address], [place] [address] May, [facility] [address] [id number] [address] [place] [address], [place] [address] May, [facility] [address] [id number] [address] [place] [address], [place] [address] May, [facility] [address] [id number] [address] [place] [address], [place] [address] May, [facility] [address] [id number] [address] [place] [address], [place] [address] May, [facility] [address] [id number] [address] [place] [address], [place] [address] May, [facility] [address] [id number] [address] [place] [address], [place] [address] May, [facility] [address] [id number] [address] [place] [address], [place] [address] May, [facility] [address] [id number] [address] [place] [address], [place] [address] Apr, [facility] [address] [id number] [address] [place] [address], [place] [address] Apr, [facility] [address] [id number] [address] [place] [address], [place] [address] Apr, [facility] [place] [address] [id number] [address] [place] [address], [place] [address] Apr, [facility] [address] [id number] [address] [place] [address], [place] [address] Apr, [facility] [address] [id number] [address] [place] [address], [place] [address] Apr, [facility] [address] [id number] [address] [place] [address], [place] [address] Apr, [facility] [address] [id number] [address] [place] [address], [place] [address] March, [facility] [address] [id number] [facility] [place] [address] 26 Feb, 2013 [facility] [address] [id number] [address] [place] [address], [place] [address] 25 Feb, 2013 [facility] [address] [id number] [address] [place] [address], [place] [address] Feb, [facility] [address] [id number] [address] [place] [address], [place] [address] 28 Jan, 2013 [facility] [address] [id number] [address] [place] [address], [place] [address] 21 Jan, 2013 [facility] [address] [id number] [address] [place] [address], [place] [id number] 19 Jan, 2013 [facility] [address] [id number] [address] [place] [address], [place] [address] 14 Jan, 2013 [facility] [address] [id number] [address] [place] [address], [place] [address] 12 Jan, 2013 [facility] [place] [address] [id number] [address] [place] [address], [place] [address] 08 Jan, 2013 [facility] [place] [address] [id number] [address] [place] [address], [place] [address] 07 Jan, 2013 [facility] [place] [address] [id number] [address] [place] [address], [place] [address] 04 Jan, 2013 [facility] [place] [address] [id number] [address] [place] [address], [place] [address] 28 Dec, 2012 [facility] [address] [id number] [address] [place] [address], [place] [address] Dec, [facility] [address] [id number] [address] [place] [address], [place] [address] 13 Dec, 2012 [facility] [address] [id number] [address] [place] [address], [place] [address] 11 Dec, 2012 [facility] [address] [id number] [address] [place] [address], [place] [address] 07 Dec, 2012 [facility] [place] [address] [id number] [address] [place] [address], [place] [address] 06 Dec, 2012 [facility] [address] [id number] [address] [place] [address], [place] [address] 05 Dec, 2012 [facility] [address] [id number] [address] [place] [address], [place] [address] Nov, [facility] [address] [id number] [address] [place] [address], [place] [address] 24 Nov, 2012 [facility] [place] [address] [id number] [address] [place] [address], [place] [address] Nov, [facility] [place] [address] [id number] [address] [place] [address], [place] [address] Nov, [facility] [place] [address] [id number] [address] [place] [address], [place] [address] Nov, [facility] [place] [address] [id number] [address] [place] [address], [place] [address] Nov, [facility] [place] [address] [id number] [address] [place] [address], [place] [address] Nov, [facility] [address] [id number] [address] [place] [address], [place] [address] Oct, [facility] [place] [address] [id number] [address] [place] [address], [place] [address] 31 Oct, 2012 [facility] [place] [address] [id number] [address] [place] [address], [place] [address] Oct, [facility] [address] [id number] [address] [place] [address], [place] [address] Oct, [facility] [address] [id number] [address] [place] [address], [place] [address] Oct, [facility] [place] [address] [id number] [address] [place] [address], [place] [address] 17 Oct, 2012 [facility] [address] [id number] [address] [place] [address], [place] [address] 07 Oct, 2012 [facility] [address] [id number] [address] [place] [address], [place] [address] Oct, [facility] [address] [id number] [address] [place] [address], [place] [address] Oct, [facility] [address] [id number] [address] [place] [address], [place] [address] Oct, [facility] [address] [id number] [address] [place] [address], [place] [address] Oct, [facility] [address] [id number] [address] [place] [address], [place] [address] Oct, [facility] [address] [id number] [address] [place] [address], [place] [address] Sep, [facility] [address] [id number] [address] [place] [address], [place] [address] Sep, [facility] [address] [id number] [address] [place] [address], [place] [address] Sep, [facility] [address] [id number] [address] [place] [address], [place] [address] Sep, [facility] [address] [id number] [address] [place] [address], [place] [address] Sep, [facility] [address] [id number] [address] [place] [address], [place] [address] Sep, [facility] [address] [id number] [address] [place] [address], [place] [address] Sep, [facility] [address] [id number] [address] [place] [address], [place] [address] Sep, [facility] [address] [id number] [address] [place] [address], [place] [address] Sep, [facility] [address] [id number] [address] [place] [address] [address] Sep, [facility] [address] [id number] [address] [place] [address], [place] [address] Sep, [facility] [address] [id number] [address] [place] [address], [place] [address] Aug, [facility] [address] [id number] [address] [place] [address], [place] [address] Aug, [facility] [address] [id number] [address] [place] [address], [place] [address] Aug, [facility] [address] [id number] [address] [place] [address], [place] [address] Aug, [facility] [address] [id number] [address] [place] [address], [place] [address] Aug, [facility] [address] [id number] [address] [place] [address], [place] [address] Aug, [facility] [address] [id number] [address] [place] [address], [place] [address] Aug, [facility] [address] [id number] [address] [place] [address], [place] [address] Aug, [facility] [address] [id number] [address] [place] [id number] Aug, [facility] [address] [id number] [address] [place] [id number] Aug, [facility] [address] [id number] [address] [place] [id number] 22 Jul, 2012 [facility] [address] [id number] [address] [place] [address], [place] [address] 20 Jul, 2012 [facility] [address] [id number] [address] [place] [id number] 10 Jul, 2012 [facility] [address] [id number] [address] [place] [id number] 06 Jul, 2012 [facility] [address] [id number] [facility] [place] [address] 30 Jun, 2012 [facility] [address] [id number] [address] [place] [address], [place] [address] Jun, [facility] [address] [id number] [address] [place] [address], [place] [address] Jun, [facility] [address] [id number] [address] [place] [address], [place] [address] Jun, [facility] [address] [id number] [address] [place] [address], [place] [address] Jun, [facility] [address] [id number] [address] [place] [address], [place] [address] Jun, [facility] [address] [id number] [address] [place] [address], [place] [address] Jun, [facility] [address] [id number] [address] [place] [address], [place] [address] May, [facility] [address] [id number] [address] [place] [address], [place] [address] May, [facility] [address] [id number] [address] [place] [address], [place] [address] May, [facility] [address] [id number] [address] [place] [address], [place] [address] May, [facility] [address] [id number] [address] [place] [address], [place] [address] May, [facility] [address] [id number] [address] [place] [address], [place] [address] Apr, [facility] [address] [id number] [address] [place] [address], [place] [address] Apr, [facility] [address] [id number] [address] [place] [address], [place] [address] Apr, [facility] [address] [id number] [address] [place] [address], [place] [address] Apr, [facility] [address] [id number] [address] [place] [address], [place] [address] Apr, [facility] [address] [id number] [address] [place] [address], [place] [address] March, [facility] [address] [id number] [address] [place] [address], [place] [address] March, [facility] [address] [id number] [address] [place] [address], [place] [address] March, [facility] [address] [id number] [address] [place] [address], [place] [address] March, [facility] [address] [id number] [address] [place] [address], [place] [address] March, [facility] [address] [id number] [address] [place] [address], [place] [address] March, [facility] [address] [id number] [address] [place] [address], [place] [address] March, [facility] [address] [id number] [address] [place] [address], [place] [address] March, [facility] [address] [id number] [address] [place] [address], [place] [address] March, [facility] [address] [id number] [address] [place] [address], [place] [address] March, [facility] [address] [id number] [address] [place] [address], [place] [address] Feb, [facility] [address] [id number] [address] [place] [address], [place] [address] Feb, [facility] [address] [id number] [address] [place] [address], [place] [address] Feb, [facility] [address] [id number] [address] [place] [address], [place] [address] Feb, [facility] [address] [id number] [address] [place] [address], [place] [address] Feb, [facility] [address] [id number] [address] [place] [address], [place] [address] Feb, [facility] [address] [id number] [address] [place] [address], [place] [address] Feb, [facility] [address] [id number] [address] [place] [address], [place] [address] Feb, [facility] [address] [id number] [address] [place] [address], [place] [address] Feb, [facility] [address] [id number] [address] [place] [address], [place] [address] Jan, [facility] [address] [id number] [address] [place] [address], [place] [address] Jan, [facility] [address] [id number] [address] [place] [address], [place] [address] Jan, [facility] [address] [id number] [address] [place] [address], [place] [address] Jan, [facility] [address] [id number] [address] [place] [address], [place] [address] Dec, [facility] [address] [id number] [address] [place] [address], [place] [address] Dec, [facility] [address] [id number] [address] [place] [address], [place] [id number] Nov, [facility] [address] [id number] [address] [place] [address], [place] [address] Nov, [facility] [address] [id number] [address] [place] [address], [place] [address] Nov, [facility] [address] [id number] [address] [place] [address], [place] [address] Nov, [facility] [address] [id number] [address] [place] [address], [place] [address] Nov, [facility] [address] [id number] [address] [place] [id number] 30 Oct, 2011 [facility] [address] [id number] [address] [place] [id number] Oct, [facility] [address] [id number] [address] [place] [id number] Oct, [facility] [address] [id number] [address] [place] [id number] Oct, [facility] [address] [id number] [address] [place] [id number] Oct, [facility] [address] [id number] [address] [place] [id number] Oct, [facility] [address] [id number] [address] [place] [id number] Oct, [facility] [address] [id number] [address] [place] [id number] Oct, [facility] [address] [id number] [address] [place] [id number] Sep, IMMUNIZATIONS No Known Immunizations SOCIAL HISTORY [...] fever, discharged 11/27/2017 11/26/2017 Hospitalization History [facility]- Went Unrepsonsive, Hit head 2017 Hospitalization History [facility]- Back Pain 8
--- OUTSIDE RECORDS SUMMARY | 2020-06-18 15:16 | XMS REPORT ---
Author Author Sanjuanita JOHNSON [facility] Address [address] [place] [address] Care Team Providers Care Teaching Fellow Name Role Phone ELIZABETHROYASHARIF Unavailable PROBLEMS Type Condition ICD9-CM Code IGA45-JE Code Onset Dates Condition S tatus SNOMED Code Problem Coronary artery disease I25.10 Active 87863717 Problem Hypertension I10 Active 5412489 3 Problem Other chronic pain G89.29 Active 8 8598796 Problem Hyperlipidemia E78.5 Active 37395 004 Problem Type 2 diabetes mellitus wit hout complication, without long-term current use of insulin E11.9 Active 475540412 Problem Low back pain M54.5 Active 381212 009 Problem Pharyngeal dysphagia R13.13 Active 75295893647110 Problem Anxiety F41.9 Active 33529049 Problem Peripheral vascular disease I73.9 Ac tive 888727416 Problem Suprapubic catheter Z93.59 Active 519006443 Problem Reactive depression F32.9 Active 79748857 Problem Neurogenic bladder N31.9 Active 3 40286965 Problem Ventral hernia without obstruction or gangrene K43 .9 Active 215940418 Problem Insomnia G47.00 Active 212850541 Problem Paroxysmal atrial fibrillation I48.0 Active 364886968 Problem Postmenopausal atrophic vaginitis N95.2 Active 17770310 Problem Encounter for suprapubic catheter care Z43.5 Active [id number] ALLERGIES No Information ENCOUNTERS Encounter Location Date Diagnosis Via [facility] [address] [place] [id number] Jun, [facility] [address] [place] [id number] May, Anxiety F41.9 [facility] [address] [facility] [id number] [address] [place] [address] May, Dysuria R30.0 [facility] [address] [id number] [address] [place] [address] May, Strain of right shoulder, scherer bsequent encounter S46.911D and Anxiety F41.9 [place] [address] [facility] [id number] [address] [place] [address] Apr, [facility] [address] [place] [id number] Apr, Strain of right shoulder, subsequent enc ounter S46.911D [place] [address] [address] [facility] [id number] [address] [place] [address] 14 Apr, 2019 Strain of right shoulder, scherer bsequent encounter S46.911D and Anxiety F41.9 [facility] [address] [place] [id number] Apr, Type 2 diabetes mellitus without complic ation, without long-term current use of insulin E11.9 and Neurogenic bladder N31.9 [facility] [address] [place] [id number] Apr, Strain of right shoulder, subsequent enc ounter S46.911D ; History of GI bleed Z87.19 ; Neurogenic bladder N31.9 and Reactive depression F32.9 [place] [address] [address] [facility] [id number] [address] [place] [address] Apr, Acute pain of left shoulder M25.512 [place] [address] [address] [facility] [id number] [address] [place] [address] Apr, [place] [address] [address] [facility] [id number] [address] [place] [address] Apr, Anxiety F41.9 and 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 [facility] [place] [address] [place] [id number] March, Gastrointestinal hemorrhage associated w ith acute gastritis K29.01 [place] [address] [address] [facility] [id number] [address] [place] [address] March, Via [facility] [place] [address] [place] [id number] March, Bronchitis J40 [facility] [address] [id number] [address] [place] [address] March, Cough R05 [facility] [address] [id number] [address] [place] [address] March, Other chronic pain G89.29 [facility] [address] [id number] [address] [place] [address] March, Anxiety F41.9 [facility] [address] [id number] [address] [place] [address] March, [facility] [address] [id number] [address] [place] [address] Feb, Other chronic pain G89.29 [facility] [address] [id number] [address] [place] [address] Feb, Anxiety F41.9 [facility] [address] [id number] [address] [place] [address] Feb, Other chronic pain G89.29 [facility] [address] [place] [id number] Feb, Neurogenic bladder N31.9 and Suprapubic catheter Z93.59 [facility] [address] [id number] [address] [place] [address] Jan, Anxiety F41.9 [facility] [address] [id number] [address] [place] [address] Dec, Anxiety F41.9 [facility] [address] [id number] [address] [place] [address] Dec, Other chronic pain G89.29 an d Anxiety F41.9 [facility] [address] [id number] [address] [place] [address] Dec, Via [facility] [address] [place] [id number] Dec, Neurogenic bladder N31.9 and Suprapubic catheter Z93.59 [facility] [address] [id number] [address] [place] [address] Nov, Other chronic pain G89.29 an d Anxiety F41.9 [facility] [address] [id number] [address] [place] [address] Nov, Via [facility] [address] [place] [id number] Nov, Suprapubic catheter Z93.59 [facility] [address] [id number] [address] [place] [address] Oct, Other chronic pain G89.29 an d Anxiety F41.9 [facility] [address] [id number] [address] [place] [address] Oct, [facility] [address] [id number] [address] [place] [address] Oct, Suprapubic catheter Z93.59 [facility] [address] [id number] [address] [place] [address] Oct, Via [employer] [facility] [address] [place] [id number] Oct, [facility] [address] [id number] [address] [place] [address] Oct, Anxiety F41.9 [facility] [address] [id number] [address] [place] [address] Oct, Anxiety F41.9 [facility] [address] [place] [id number] Oct, Other chronic pain G89.29 [facility] [address] [id number] [address] [place] [address] Sep, Other chronic pain G89.29 [facility] [address] [place] [id number] Sep, Suprapubic catheter Z93.59 and Cervicalg ia M54.2 [facility] [address] [id number] [address] [place] [address] Sep, [facility] [address] [id number] [address] [place] [address] Sep, [facility] [address] [id number] [address] [place] [address] Sep, Via [employer] [facility] [address] [place] [id number] Aug, Cystitis N30.90 [facility] [address] [id number] [address] [place] [address] Aug, [facility] [address] [id number] [address] [place] [address] Aug, Other chronic pain G89.29 [facility] [address] [id number] [address] [place] [address] Aug, Via [facility] [address] [place] [id number] Aug, Encounter for suprapubic catheter care Z 43.5 [facility] [address] [id number] [address] [place] [address] Jul, Via [employer] [facility] [address] [place] [id number] Jul, [facility] [address] [id number] [address] [place] [address] Jul, Other chronic pain G89.29 [facility] [address] [id number] [address] [place] [address] Jul, [facility] [address] [id number] [address] [place] [address] Jul, Via [facility] [address] [place] [id number] Jun, Postmenopausal atrophic vaginitis N95.2 [facility] [address] [id number] [address] [place] [address] Jun, Other chronic pain G89.29 [facility] [address] [id number] [address] [place] [address] Jun, Via [facility] [address] [place] [id number] May, Anxiety F41.9 ; Type 2 diabetes mellitus without complication, without long-term current use of insulin E11.9 ; Hypertension I10 ; Low back pain M54.5 ; Paroxysmal atrial fibrillation I48.0 and 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 [facility] [address] [id number] [address] [place] [address] May, Other chronic pain G89.29 Via [facility] [address] [place] [id number] May, Low back pain M54.5 [facility] [address] [id number] [address] [place] [address] May, [facility] [address] [id number] [address] [place] [address] Apr, Other chronic pain G89.29 [facility] [address] [id number] [address] [place] [address] Apr, [facility] [address] [id number] [address] [place] [address] Apr, Via [facility] [address] [place] [id number] Apr, Closed compression fracture of L3 lumbar vertebra with routine healing, subsequent encounter S32.030D [facility] [address] [place] [id number] Apr, Low back pain M54.5 [facility] [address] [place] [id number] Apr, Coccydynia M53.3 [facility] [address] [id number] [address] [place] [address] March, [facility] [address] [id number] [address] [place] [address] March, Other chronic pain G89.29 [facility] [address] [id number] [address] [place] [address] March, [facility] [address] [id number] [address] [place] [address] March, [facility] [address] [id number] [address] [place] [address] Feb, [facility] [address] [id number] [address] [place] [address] Feb, Other chronic pain G89.29 [facility] [address] [place] [id number] Feb, Other chronic pain G89.29 and Anxiety F4 1.9 [facility] [address] [id number] [address] [place] [address] Feb, [facility] [address] [facility] [id number] [address] [place] [address] Jan, [facility] [address] [id number] [address] [place] [address] Jan, [facility] [address] [facility] [id number] [address] [place] [address] Jan, [facility] [address] [facility] [id number] [address] [place] [address] Jan, [facility] [address] [facility] [id number] [address] [place] [address] Dec, Via [facility] [address] [place] [id number] Dec, Peripheral vascular disease I73.9 ; 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 ; Other chronic pain G89.29 ; Anxiety F41.9 ; Reactive depression F32.9 ; Insomnia G47.00 and Type 2 diabetes mellitus without complication, without long-term current use of insulin E11.[address] [facility] [address] [id number] [address] Nov, [facility] [address] [id number] [place] [id number] Nov, Anxiety F41.9 [facility] [address] [id number] [address] [place] [address] Nov, [facility] [address] [id number] [place] [id number] Nov, Anxiety F41.9 [facility] [address] [place] [id number] Nov, Status post surgery Z98.890 ; Confused R 41.0 ; Anxiety F41.9 and Other chronic pain G89.29 [facility] [address] [id number] [place] [id number] Nov, Other chronic pain G89.29 [facility] [address] [facility] [id number] [address] [place] [address] Oct, [facility] [address] [id number] [place] [id number] Oct, Other chronic pain G89.29 [facility] [address] [id number] [address] [place] [address] Oct, Anxiety F41.9 [facility] [address] [id number] [place] [id number] Sep, Other chronic pain G89.29 [facility] [address] [id number] [place] [id number] Sep, [facility] [address] [place] [id number] Aug, Dysuria R30.0 and Anxiety F41.9 [facility] [address] [id number] [address] [place] [phone] Aug, [facility] [place] [address] [id number] [place] [id number] Aug, Other chronic pain G89.29 [facility] [address] [id number] [address] [place] [address] Jul, Other chronic pain G89.29 [facility] [place] [address] [id number] [place] [id number] Jun, [facility] [place] [address] [id number] [place] [id number] 15 Jun, 2017 Other chronic pain G89.29 [facility] [address] [facility] [id number] [address] [place] [address] Jun, [facility] [address] [id number] [address] [place] [address] May, Other chronic pain G89.29 [facility] [address] [facility] [id number] [address] [place] [address] Apr, Other chronic pain G89.29 Via [facility] [address] [place] [id number] Apr, Reactive depression F32.9 and Pharyngeal dysphagia R13.13 [facility] [address] [facility] [id number] [address] [place] [address] Apr, Urinary tract infection with out hematuria, site unspecified N39.0 [facility] [address] [facility] [id number] [address] [place] [address] March, Other chronic pain G89.29 [facility] [address] [id number] [address] [place] [address] Feb, Other chronic pain G89.29 [facility] [address] [id number] [address] [place] [address] Feb, [facility] [place] [address] [id number] [place] [id number] Feb, Via [facility] [address] [place] [id number] Feb, Dysuria R30.0 and Ventral hernia without obstruction or gangrene K43.9 [facility] [address] [facility] [id number] [address] [place] [address] Jan, Other chronic pain G89.29 [facility] [place] [address] [id number] [id number] Dec, Other chronic pain G89.29 [facility] [address] [id number] [address] [place] [address] Nov, Other chronic pain G89.29 [facility] [address] [place] [id number] Nov, Lymphadenitis I88.9 [facility] [address] [id number] [address] [place] [address] Nov, Other chronic pain G89.29 [facility] [address] [id number] [address] [place] [address] Nov, [facility] [place] [id number] [place] [id number] Nov, Other chronic pain G89.29 [facility] [address] [place] [id number] Oct, Low back pain M54.5 ; Hypertension I10 a nd Type 2 diabetes mellitus without complication, without long-term current use of insulin E11.9 [facility] [address] [id number] [address] [place] [address] Oct, [facility] [address] [id number] [address] [place] [id number] Oct, [facility] [address] [id number] [address] [place] [address] Oct, [facility] [address] [id number] [address] [place] [address] Oct, [facility] [address] [id number] [address] [place] [address] Sep, [facility] [address] [id number] [address] [place] [address] Sep, [facility] [address] [id number] [address] [place] [address] Aug, Other chronic pain G89.29 [facility] [address] [id number] [address] [place] [address] Jul, [facility] [address] [id number] [address] [place] [address] Jul, [facility] [address] [id number] [address] [place] [address] Jul, [facility] [address] [id number] [address] [place] [address] Jun, [facility] [address] [id number] [address] [place] [address] Jun, [facility] [address] [place] [id number] Jun, Low back pain M54.5 ; Other chronic pain G89.29 and Coronary artery disease I25.10 [facility] [address] [id number] [address] [place] [address] Jun, [facility] [address] [id number] [address] [place] [address] May, [facility] [address] [id number] [address] [place] [address] May, [facility] [address] [id number] [address] [place] [address] May, Other chronic pain G89.29 [facility] [address] [id number] [address] [place] [address] May, [facility] [address] [id number] [address] [place] [address] Apr, [facility] [address] [id number] [address] [place] [address] 17 Apr, 2016 Acute cystitis without hemat uria N30.00 [facility] [address] [id number] [address] [place] [address] 16 Apr, 2016 Acute cystitis without hemat uria N30.00 ; Coronary artery disease I25.10 ; Low back pain M54.5 and Other chronic pain G89.29 [facility] [address] [id number] [address] [place] [address] Apr, Other chronic pain G89.29 [facility] [address] [id number] [address] [place] [address] March, Other chronic pain G89.29 [facility] [address] [id number] [address] [place] [address] Feb, [facility] [address] [id number] [address] [place] [address] Feb, Arthritis M19.90 [facility] [address] [id number] [address] [place] [phone] Feb, [facility] [address] [id number] [address] [place] [address] Jan, [facility] [address] [id number] [address] [place] [address] Jan, [facility] [address] [id number] [address] [place] [address] Jan, Other chronic pain G89.29 [facility] [address] [id number] [address] [place] [phone] Jan, Hypertension I10 ; Coronary artery disease I25.10 and Insomnia G47.00 [facility] [address] [id number] [address] [place] [phone] Jan, [facility] [address] [id number] [address] [place] [phone] Dec, Right hip pain M25.551 [facility] [address] [id number] [address] [place] [id number] Dec, [facility] [address] [id number] [address] [place] [phone] Dec, [facility] [address] [id number] [address] [place] [phone] Dec, [facility] [address] [facility] [id number] [address] [place] [phone] Dec, Other chronic pain G89.29 [facility] [address] [id number] [address] [place] [phone] Dec, [facility] [address] [id number] [address] [place] [phone] Nov, [facility] [address] [facility] [id number] [address] [place] [phone] Nov, Other chronic pain G89.29 [facility] [address] [facility] [id number] [address] [place] [phone] Nov, Right hip pain M25.551 and C oronary artery disease I25.10 [facility] [address] [id number] [address] [place] [phone] Nov, Other chronic pain G89.29 [facility] [address] [id number] [address] [place] [phone] Oct, [facility] [address] [facility] [id number] [address] [place] [phone] Oct, [facility] [address] [facility] [id number] [address] [place] [phone] Sep, [facility] [address] [facility] [id number] [address] [place] [phone] Sep, [facility] [address] [facility] [id number] [address] [place] [phone] Aug, [facility] [address] [facility] [id number] [address] [place] [phone] Aug, Hypertension I10 ; Coronary artery disease I25.10 and Arthritis M19.90 [facility] [address] [id number] [address] [place] [address], [place] [phone] Jun, [facility] [address] [id number] [address] [place] [phone] Jun, Essential hypertension, jayson gn 401.1 ; Other chronic pain 338.29 and Chronic airway obstruction, not elsewhere classified 496 [facility] [address] [id number] [address] [place] [address], [place] [address] Jun, [facility] [address] [id number] [address] [place] [address], [place] [address] Jun, [facility] [address] [id number] [address] [place] [address], [place] [address] Jun, [facility] [address] [id number] [address] [place] [address], [place] [address] May, [facility] [address] [id number] [address] [place] [address] May, [facility] [address] [id number] [address] [place] [address] Apr, [facility] [address] [id number] [address] [place] [address], [place] [address] Apr, [facility] [address] [id number] [address] [place] [address] Apr, [facility] [address] [id number] [address] [place] [address], [place] [address] March, [facility] [address] [id number] [address] [place] [address] March, [facility] [address] [id number] [address] [place] [address] March, [facility] [address] [id number] [address] [place] [address] March, [facility] [address] [id number] [address] [place] [address] 01 May, 2015 Sialadenitis 527.2 [facility] [address] [id number] [address] [place] [address], [place] [address] Feb, [facility] [place] [address] [id number] [address] [place] [address], [place] [address] Feb, [facility] [address] [id number] [address] [place] [address], [place] [address] Feb, [facility] [place] [address] [id number] [address] [place] [address], [place] [address] 14 Feb, 2015 [facility] [address] [id number] [address] [place] [address], [place] [address] Feb, [facility] [address] [id number] [address] [place] [address], [place] [address] Jan, [facility] [address] [id number] [address] [place] [address], [place] [address] Jan, [facility] [address] [id number] [address] [place] [address] Jan, [facility] [address] [id number] [address] [place] [address], [place] [address] Jan, [facility] [address] [id number] [address] [place] [address] Jan, [facility] [address] [id number] [address] [place] [address] Jan, [facility] [address] [id number] [address] [place] [address] Dec, [facility] [address] [id number] [address] [place] [address], [place] [address] Dec, [facility] [address] [id number] [address] [place] [address] Dec, [facility] [address] [id number] [address] [place] [address] Dec, [facility] [address] [id number] [address] [place] [address], [place] [address] Dec, [facility] [address] [id number] [address] [place] [address], [place] [address] Dec, [facility] [address] [id number] [address] [place] [address], [place] [address] Nov, [facility] [address] [id number] [address] [place] [address], [place] [address] Nov, [facility] [address] [id number] [address] [place] [address], [place] [address] Nov, [facility] [address] [id number] [address] [place] [address], [place] [address] Nov, [facility] [address] [id number] [address] [place] [address], [place] [address] Nov, [facility] [address] [id number] [address] [place] [address], [place] [address] Nov, [facility] [address] [id number] [address] [place] [address], [place] [address] Nov, [facility] [address] [id number] [address] [place] [address], [place] [address] Nov, [facility] [address] [id number] [address] [place] [address], [place] [address] Nov, [facility] [address] [id number] [address] [place] [address], [place] [address] Nov, [facility] [address] [id number] [address] [place] [address], [place] [address] Nov, [facility] [address] [id number] [address] [place] [address], [place] [address] Nov, [facility] [address] [id number] [address] [place] [address], [place] [address] Nov, [facility] [address] [id number] [address] [place] [address], [place] [address] Nov, [facility] [address] [id number] [address] [place] [address], [place] [address] Oct, [facility] [address] [id number] [address] [place] [address], [place] [address] Oct, [facility] [address] [id number] [address] [place] [address], [place] [address] Oct, [facility] [address] [id number] [address] [place] [address], [place] [address] Oct, [facility] [address] [id number] [address] [place] [address], [place] [address] Oct, [facility] [address] [id number] [address] [place] [address], [place] [address] Oct, [facility] [address] [id number] [address] [place] [address], [place] [address] Oct, [facility] [address] [id number] [address] [place] [address], [place] [address] Oct, [facility] [address] [id number] [address] [place] [address], [place] [address] Oct, [facility] [address] [id number] [address] [place] [address], [place] [address] Sep, [facility] [address] [id number] [address] [place] [address], [place] [address] Sep, [facility] [address] [id number] [address] [place] [address], [place] [address] Sep, [facility] [address] [id number] [address] [place] [address], [place] [address] Sep, [facility] [address] [id number] [address] [place] [address], [place] [address] Sep, [facility] [address] [id number] [address] [place] [address], [place] [address] Sep, [facility] [address] [id number] [address] [place] [address] Sep, [facility] [address] [id number] [address] [place] [address], [place] [address] Sep, [facility] [address] [id number] [address] [place] [address] Sep, [facility] [address] [id number] [address] [place] [address], [place] [address] Sep, [facility] [address] [id number] [address] [place] [address] Sep, [facility] [address] [id number] [address] [place] [address], [place] [address] Sep, [facility] [address] [id number] [address] [place] [address], [place] [address] Aug, [facility] [address] [id number] [address] [place] [address] Aug, [facility] [address] [id number] [address] [place] [address], [place] [address] Aug, [facility] [address] [id number] [address] [place] [address] Aug, [facility] [address] [id number] [address] [place] [address], [place] [address] Aug, [facility] [address] [id number] [address] [place] [address] Aug, [facility] [address] [id number] [address] [place] [address] Aug, [facility] [address] [id number] [address] [place] [address], [place] [address] Aug, [facility] [address] [id number] [address] [place] [address], [place] [address] 30 Jul, 2014 [facility] [address] [id number] [address] [place] [address], [place] [address] 30 Jul, 2014 [facility] [address] [id number] [facility] [address] 30 Jul, 2013 [facility] [address] [id number] [address] [address] 30 Jul, 2013 [facility] [address] [id number] [address] [address] 25 Jul, 2013 [facility] [address] [id number] [address] [address] 25 Jul, 2013 [facility] [address] [id number] [address] [place] [address], [place] [address] 15 Jul, 2013 [facility] [address] [id number] [address] [place] [address], [place] [address] 15 Jul, 2013 [facility] [address] [id number] [address] [place] [address], [place] [address] 11 Jul, 2013 [facility] [address] [id number] [address] [place] [address], [place] [address] Jul, 2013 [facility] [address] [id number] [address] [place] [address], [place] [address] Jun, [facility] [address] [id number] [address] [place] [address], [place] [address] Jun, [facility] [address] [id number] [address] [place] [address], [place] [address] Jun, [facility] [address] [id number] [address] [place] [address], [place] [address] Jun, [facility] [address] [id number] [address] [place] [address], [place] [address] Jun, [facility] [address] [id number] [address] [place] [address], [place] [address] Jun, [facility] [address] [id number] [address] [place] [address], [place] [address] Jun, [facility] [address] [id number] [address] [place] [address], [place] [address] Jun, [facility] [address] [id number] [facility] [address] Jun, [facility] [address] [id number] [address] [address] Jun, [facility] [address] [id number] [facility] [address] Jun, [facility] [address] [id number] [address] [place] [address], [place] [address] Jun, [facility] [address] [id number] [address] [place] [address], [place] [address] Jun, [facility] [address] [id number] [address] [place] [address], [place] [address] Jun, [facility] [address] [id number] [address] [place] [address], [place] [address] Jun, [facility] [address] [id number] [address] [place] [address], [place] [address] Jun, [facility] [address] [id number] [address] [place] [address], [place] [address] Jun, [facility] [address] [id number] [address] [place] [address], [place] [address] Jun, [facility] [address] [id number] [address] [place] [address], [place] [address] Jun, [facility] [address] [id number] [address] [place] [address], [place] [address] Jun, [facility] [address] [id number] [address] [place] [address], [place] [address] Jun, [facility] [address] [id number] [address] [place] [address], [place] [address] Jun, [facility] [address] [id number] [address] [place] [address], [place] [address] May, [facility] [address] [id number] [address] [place] [address], [place] [address] May, [facility] [address] [id number] [facility] [address] May, [facility] [address] [id number] [facility] [address] May, [facility] [address] [id number] [address] [address] May, [facility] [address] [id number] [address] [place] [address], [place] [address] May, 2013 [facility] [address] [id number] [address] [place] [address], [place] [address] May, [facility] [address] [id number] [address] [place] [address], [place] [address] May, 2013 [facility] [address] [id number] [address] [place] [address], [place] [address] May, 2013 [facility] [address] [id number] [address] [place] [address], [place] [address] May, [facility] [address] [id number] [address] [place] [address], [place] [address] May, [facility] [address] [id number] [address] [place] [address], [place] [address] May, [facility] [address] [id number] [address] [place] [address], [place] [address] May, [facility] [address] [id number] [address] [place] [address], [place] [address] Apr, [facility] [address] [id number] [address] [place] [address], [place] [address] Apr, [facility] [address] [id number] [address] [place] [address], [place] [address] Apr, [facility] [address] [id number] [address] [place] [address], [place] [address] Apr, [facility] [address] [id number] [facility] [address] Apr, [facility] [address] [id number] [address] [address] Apr, [facility] [address] [id number] [facility] [address] Apr, [facility] [address] [id number] [address] [place] [address], [place] [address] Apr, [facility] [address] [id number] [address] [place] [address], [place] [address] Apr, [facility] [address] [id number] [address] [place] [address], [place] [address] March, [facility] [address] [id number] [address] [place] [address], [place] [address] March, [facility] [address] [id number] [address] [place] [address], [place] [address] March, [facility] [address] [id number] [address] [place] [address], [place] [address] March, [facility] [address] [id number] [address] [place] [address], [place] [address] March, [facility] [address] [id number] [address] [place] [address], [place] [address] March, [facility] [address] [id number] [address] [place] [address], [place] [address] March, [facility] [address] [id number] [address] [place] [address], [place] [address] March, [facility] [address] [id number] [address] [place] [address], [place] [address] March, [facility] [address] [id number] [address] [place] [address], [place] [address] March, [facility] [address] [id number] [address] [place] [address], [place] [address] March, [facility] [address] [id number] [address] [place] [address], [place] [address] March, [facility] [address] [id number] [address] [place] [address], [place] [address] March, [facility] [address] [id number] [address] [place] [address], [place] [address] March, [facility] [address] [id number] [address] [place] [address], [place] [address] March, [facility] [address] [id number] [address] [place] [address], [place] [address] March, [facility] [address] [id number] [address] [place] [address], [place] [address] March, [facility] [address] [id number] [address] [place] [address], [place] [address] March, [facility] [address] [id number] [address] [place] [address], [place] [address] March, [facility] [address] [id number] [address] [place] [address], [place] [address] March, [facility] [address] [id number] [address] [place] [address], [place] [address] Feb, [facility] [address] [id number] [address] [place] [address], [place] [address] Feb, [facility] [address] [id number] [address] [place] [address], [place] [address] Feb, [facility] [address] [id number] [address] [place] [address], [place] [address] Feb, [facility] [address] [id number] [address] [place] [address], [place] [address] Feb, [facility] [address] [id number] [address] [place] [address], [place] [address] Feb, [facility] [address] [id number] [facility] [address] 11 Feb, 2014 [facility] [address] [id number] [address] [place] [address], [place] [address] Feb, [facility] [address] [id number] [address] [address] Jan, [facility] [address] [id number] [address] [place] [address], [place] [address] Jan, [facility] [address] [id number] [address] [place] [address], [place] [address] Jan, [facility] [address] [id number] [address] [place] [address], [place] [address] 24 Jan, 2014 [facility] [address] [id number] [address] [place] [address], [place] [address] Jan, [facility] [address] [id number] [address] [place] [address], [place] [address] Jan, [facility] [address] [id number] [address] [place] [address], [place] [address] Jan, [facility] [address] [id number] [address] [place] [address], [place] [address] Jan, [facility] [address] [id number] [address] [place] [address], [place] [address] Jan, [facility] [address] [id number] [address] [place] [address], [place] [address] Jan, [facility] [address] [id number] [address] [place] [address], [place] [address] 27 Dec, 2013 [facility] [address] [id number] [address] [place] [address], [place] [address] Dec, [facility] [address] [id number] [address] [place] [address], [place] [address] Dec, [facility] [address] [id number] [address] [place] [address] [address] 2013 [facility] [address] [id number] [address] [address] 2013 [facility] [address] [id number] [address] [address] Dec, [facility] [address] [id number] [address] [address] Dec, [facility] [address] [id number] [address] [place] [address], [place] [address] Dec, [facility] [address] [id number] [address] [address] Nov, [facility] [address] [id number] [address] [place] [address], [place] [address] Nov, [facility] [address] [id number] [address] [place] [address], [place] [address] Nov, [facility] [address] [id number] [address] [place] [address], [place] [address] Nov, [facility] [address] [id number] [address] [place] [address], [place] [address] Nov, [facility] [address] [id number] [address] [place] [address], [place] [address] Nov, [facility] [address] [id number] [address] [place] [address], [place] [address] Nov, [facility] [address] [id number] [address] [place] [address], [place] [address] Nov, [facility] [address] [id number] [address] [place] [address], [place] [address] Nov, [facility] [address] [id number] [address] [place] [address], [place] [address] Nov, [facility] [address] [id number] [address] [place] [address], [place] [address] Nov, [facility] [address] [id number] [address] [place] [address] 15 Nov, 2013 [facility] [address] [id number] [address] [place] [address], [place] [address] 15 Nov, 2013 [facility] [address] [id number] [address] [place] [address], [place] [address] 30 Oct, 2013 [facility] [address] [id number] [address] [place] [address], [place] [address] 30 Oct, 2013 [facility] [address] [id number] [address] [place] [address], [place] [address] Oct, [facility] [address] [id number] [address] [place] [address], [place] [address] Oct, [facility] [address] [id number] [address] [place] [address], [place] [address] Oct, [facility] [address] [id number] [address] [place] [address], [place] [address] Oct, [facility] [address] [id number] [address] [place] [address], [place] [address] Oct, [facility] [address] [id number] [address] [place] [address], [place] [address] Oct, [facility] [address] [id number] [address] [place] [address], [place] [address] 17 Oct, 2013 [facility] [address] [id number] [address] [place] [address], [place] [address] Oct, [facility] [address] [id number] [address] [place] [address], [place] [address] Oct, [facility] [facility] [address] [id number] [address] [place] [address], [place] [address] Oct, [facility] [address] [id number] [address] [place] [address], [place] [address] Oct, [facility] [address] [id number] [address] [place] [address], [place] [address] Oct, [facility] [address] [id number] [address] [place] [address], [place] [address] Sep, [facility] [address] [id number] [address] [place] [address], [place] [address] Sep, [facility] [address] [id number] [address] [place] [address], [place] [address] Sep, [facility] [address] [id number] [address] [place] [address], [place] [address] Sep, [facility] [address] [id number] [address] [place] [address], [place] [address] Sep, [facility] [address] [id number] [address] [place] [address], [place] [address] Sep, [facility] [address] [id number] [address] [place] [address], [place] [address] Sep, [facility] [address] [id number] [address] [place] [address], [place] [address] Sep, [facility] [address] [id number] [address] [place] [address], [place] [address] Sep, [facility] [address] [id number] [address] [place] [address] Sep, [facility] [address] [id number] [address] [place] [address] Aug, [facility] [address] [id number] [address] [place] [address] Aug, [facility] [address] [id number] [address] [place] [address], [place] [address] Aug, [facility] [address] [id number] [address] [place] [address] Aug, [facility] [address] [id number] [address] [place] [address] Aug, [facility] [address] [id number] [address] [place] [address] 23 Aug, 2013 [facility] [address] [id number] [address] [place] [address], [place] [address] 23 Aug, 2012 [facility] [address] [id number] [address] [place] [address] 23 Aug, 2013 [facility] [address] [id number] [address] [place] [address], [place] [address] 22 Aug, 2013 [facility] [address] [id number] [address] [place] [id number] 22 Aug, 2012 [facility] [address] [id number] [address] [place] [address], [place] [address] 18 Aug, 2013 [facility] [address] [id number] [address] [place] [address] 18 Aug, 2013 [facility] [address] [id number] [address] [place] [address] 18 Aug, 2013 [facility] [address] [id number] [address] [place] [id number] 18 Aug, 2013 [facility] [address] [id number] [address] [place] [address] 17 Aug, 2013 [facility] [address] [id number] [address] [place] [address] 14 Aug, 2013 [facility] [address] [id number] [address] [place] [id number] 14 Aug, 2013 [facility] [address] [id number] [address] [place] [address] 01 Aug, 2013 [facility] [address] [id number] [address] [place] [address], [place] [address] 20 Jul, 2012 [facility] [address] [id number] [address] [place] [address] 19 Jul, 2012 [facility] [address] [id number] [address] [place] [address], [place] [address] 18 Jul, 2012 [facility] [address] [id number] [facility] [address] Jul, [facility] [address] [id number] [address] [place] [address], [place] [address] Jul, [facility] [address] [id number] [address] [place] [address], [place] [address] Jun, [facility] [address] [id number] [address] [place] [address], [place] [address] Jun, [facility] [address] [id number] [address] [place] [address], [place] [address] Jun, [facility] [address] [id number] [address] [place] [address], [place] [address] Jun, [facility] [address] [id number] [address] [place] [address], [place] [address] Jun, [facility] [address] [id number] [address] [place] [address], [place] [address] Jun, [facility] [address] [id number] [address] [place] [address], [place] [address] Jun, [facility] [address] [id number] [address] [place] [address], [place] [address] Jun, [facility] [address] [id number] [address] [place] [address], [place] [address] Jun, [facility] [address] [id number] [address] [place] [address], [place] [address] Jun, [facility] [address] [id number] [address] [place] [address], [place] [address] May, [facility] [address] [id number] [address] [place] [address], [place] [address] May, [facility] [address] [id number] [address] [place] [address], [place] [address] May, [facility] [address] [id number] [address] [place] [address], [place] [address] May, [facility] [address] [id number] [address] [place] [address], [place] [address] May, [facility] [address] [id number] [address] [place] [address], [place] [address] May, [facility] [address] [id number] [address] [place] [address], [place] [address] May, [facility] [address] [id number] [address] [place] [address], [place] [address] May, [facility] [address] [id number] [address] [place] [address], [place] [address] May, [facility] [address] [id number] [address] [place] [address], [place] [address] Apr, [facility] [address] [id number] [address] [place] [address], [place] [address] Apr, [facility] [address] [id number] [address] [place] [address], [place] [address] Apr, [facility] [address] [id number] [address] [place] [address], [place] [address] Apr, [facility] [address] [id number] [address] [place] [address], [place] [address] Apr, [facility] [address] [id number] [address] [place] [address], [place] [address] Apr, [facility] [address] [id number] [address] [place] [address], [place] [address] Apr, [facility] [address] [id number] [address] [place] [address], [place] [address] March, [facility] [address] [id number] [address] [place] [address], [place] [address] Feb, [facility] [address] [id number] [address] [place] [address], [place] [address] Feb, [facility] [address] [id number] [address] [place] [address] [place] [address] 12 Feb, 2013 [facility] [address] [id number] [address] [place] [address], [place] [address] 28 Jan, 2013 [facility] [address] [id number] [address] [place] [address], [place] [address] 21 Jan, 2013 [facility] [address] [id number] [address] [place] [address], [place] [address] 19 Jan, 2013 [facility] [address] [id number] [address] [place] [address], [place] [address] 14 Jan, 2013 [facility] [address] [id number] [address] [place] [address], [place] [address] 12 Jan, 2013 [facility] [address] [id number] [address] [place] [address], [place] [address] 08 Jan, 2013 [facility] [address] [id number] [address] [place] [address], [place] [address] 07 Jan, 2013 [facility] [address] [id number] [address] [place] [address], [place] [address] 04 Jan, 2013 [facility] [address] [id number] [address] [place] [address], [place] [address] 28 Dec, 2012 [facility] [address] [id number] [address] [place] [address], [place] [address] 25 Dec, 2012 [facility] [address] [id number] [address] [place] [address], [place] [address] 13 Dec, 2012 [facility] [address] [id number] [address] [place] [address], [place] [address] 11 Dec, 2012 [facility] [address] [id number] [address] [place] [address], [place] [address] 07 Dec, 2012 [facility] [address] [id number] [address] [place] [address], [place] [address] 06 Dec, 2012 [facility] [address] [id number] [address] [place] [address], [place] [address] 05 Dec, 2012 [facility] [address] [id number] [address] [place] [address], [place] [address] Nov, [facility] [address] [id number] [address] [place] [address], [place] [address] Nov, [facility] [address] [id number] [address] [place] [address], [place] [address] Nov, [facility] [address] [id number] [address] [place] [address], [place] [address] Nov, [facility] [address] [id number] [address] [place] [address], [place] [address] Nov, [facility] [address] [id number] [address] [place] [address], [place] [address] Nov, [facility] [address] [id number] [address] [place] [address], [place] [address] Nov, [facility] [address] [id number] [address] [place] [address], [place] [address] Oct, [facility] [address] [id number] [address] [place] [address], [place] [address] Oct, [facility] [address] [id number] [address] [place] [address], [place] [address] Oct, [facility] [address] [id number] [address] [place] [address], [place] [address] Oct, [facility] [address] [id number] [address] [place] [address], [place] [address] Oct, [facility] [address] [id number] [address] [place] [address], [place] [address] Oct, [facility] [address] [id number] [address] [place] [address], [place] [address] Oct, [facility] [address] [id number] [address] [place] [address], [place] [address] 07 Oct, 2012 [facility] [address] [id number] [address] [place] [address] Oct, [facility] [address] [id number] [address] [place] [address], [place] [address] Oct, [facility] [address] [id number] [address] [place] [address], [place] [address] Oct, [facility] [address] [id number] [address] [place] [address], [place] [address] Oct, [facility] [address] [id number] [address] [place] [address], [place] [address] Sep, [facility] [address] [id number] [address] [place] [address], [place] [address] Sep, [facility] [address] [id number] [address] [place] [address], [place] [address] Sep, [facility] [address] [id number] [address] [place] [address] Sep, [facility] [address] [id number] [address] [place] [address], [place] [address] Sep, [facility] [address] [id number] [address] [place] [address], [place] [address] Sep, [facility] [address] [id number] [address] [place] [address], [place] [address] Sep, [facility] [address] [id number] [address] [place] [address], [place] [address] Sep, [facility] [address] [id number] [address] [place] [address] Sep, [facility] [address] [id number] [address] [place] [address], [place] [address] Sep, [facility] [address] [id number] [address] [place] [address], [place] [address] Sep, [facility] [address] [id number] [address] [place] [address], [place] [address] Aug, [facility] [address] [id number] [address] [place] [address], [place] [address] Aug, [facility] [address] [id number] [address] [place] [address], [place] [address] Aug, [facility] [address] [id number] [address] [place] [address], [place] [address] Aug, [facility] [address] [id number] [address] [place] [address], [place] [address] Aug, [facility] [address] [id number] [address] [place] [address], [place] [address] Aug, [facility] [address] [id number] [address] [place] [address], [place] [address] Aug, [facility] [address] [id number] [address] [place] [address], [place] [address] Aug, [facility] [address] [id number] [address] [place] [address], [place] [address] Aug, [facility] [address] [id number] [address] [place] [address], [place] [address] Aug, [facility] [address] [id number] [address] [place] [address], [place] [address] 22 Jul, 2012 [facility] [address] [id number] [address] [place] [address], [place] [address] 20 Jul, 2012 [facility] [address] [id number] [address] [place] [address], [place] [address] 10 Jul, 2012 [facility] [address] [id number] [address] [place] [address], [place] [address] 06 Jul, 2012 [facility] [address] [id number] [address] [place] [address], [place] [address] 30 Jun, 2012 [facility] [address] [id number] [address] [place] [address], [place] [address] Jun, [facility] [address] [id number] [address] [place] [address], [place] [address] Jun, [facility] [address] [id number] [facility] [address] Jun, [facility] [address] [id number] [address] [place] [address], [place] [address] Jun, [facility] [address] [id number] [address] [place] [address], [place] [address] Jun, [facility] [address] [id number] [address] [place] [address], [place] [address] Jun, [facility] [address] [id number] [address] [place] [address], [place] [address] May, [facility] [address] [id number] [address] [place] [address], [place] [address] May, [facility] [address] [id number] [address] [place] [address], [place] [address] May, [facility] [address] [id number] [address] [place] [address], [place] [address] May, [facility] [address] [id number] [address] [place] [address], [place] [address] May, [facility] [address] [id number] [address] [place] [address], [place] [address] Apr, [facility] [address] [id number] [address] [place] [address], [place] [address] Apr, [facility] [address] [id number] [address] [place] [address], [place] [address] Apr, [facility] [address] [id number] [address] [place] [address], [place] [address] Apr, [facility] [address] [id number] [address] [place] [address], [place] [address] Apr, [facility] [address] [id number] [address] [place] [address], [place] [address] March, [facility] [address] [id number] [address] [place] [address], [place] [address] March, [facility] [address] [id number] [address] [place] [address], [place] [address] March, [facility] [address] [id number] [address] [place] [address], [place] [address] March, [facility] [address] [id number] [address] [place] [address], [place] [address] March, [facility] [address] [id number] [address] [place] [address], [place] [address] March, [facility] [address] [id number] [address] [place] [address], [place] [address] March, [facility] [address] [id number] [address] [place] [address], [place] [address] March, [facility] [address] [id number] [address] [place] [address], [place] [address] March, [facility] [address] [id number] [address] [place] [address], [place] [address] March, [facility] [address] [id number] [address] [place] [address], [place] [address] 30 Feb, 2012 [facility] [address] [id number] [address] [place] [address], [place] [address] Feb, [facility] [address] [id number] [address] [place] [address], [place] [address] Feb, [facility] [address] [id number] [address] [place] [address], [place] [address] Feb, [facility] [address] [id number] [address] [place] [address], [place] [address] Feb, [facility] [address] [id number] [address] [place] [address], [place] [address] Feb, [facility] [address] [id number] [address] [place] [address], [place] [address] Feb, [facility] [address] [id number] [address] [place] [address], [place] [address] Feb, [facility] [address] [id number] [address] [place] [address], [place] [address] Feb, [facility] [address] [id number] [address] [place] [address], [place] [address] Jan, [facility] [address] [id number] [address] [place] [address], [place] [address] Jan, [facility] [address] [id number] [address] [place] [address], [place] [address] Jan, [facility] [address] [id number] [address] [place] [address], [place] [address] Jan, [facility] [address] [id number] [address] [place] [address], [place] [address] Dec, [facility] [address] [id number] [address] [place] [address], [place] [address] Dec, [facility] [address] [id number] [address] [place] [address], [place] [address] Nov, [facility] [address] [id number] [address] [place] [address], [place] [address] Nov, [facility] [address] [id number] [address] [place] [address], [place] [address] Nov, [facility] [address] [id number] [address] [place] [address], [place] [address] Nov, [facility] [address] [id number] [address] [place] [address], [place] [address] Nov, [facility] [address] [id number] [address] [place] [address], [place] [address] Oct, [facility] [address] [id number] [address] [place] [address], [place] [address] Oct, [facility] [address] [id number] [address] [place] [id number] Oct, [facility] [address] [id number] [address] [place] [address] Oct, [facility] [address] [facility] [id number] [address] [place] [id number] Oct, [facility] [address] [facility] [id number] [address] [place] [id number] Oct, [facility] [address] [facility] [id number] [address] [place] [id number] Oct, [facility] [address] [facility] [id number] [address] [place] [phone] Oct, [facility] [address] [facility] [id number] [address] [place] [id number] Sep, IMMUNIZATIONS No Known Immunizations SOCIAL HISTORY Never Assessed REASON FOR VISIT PLAN OF CARE VITAL SIGNS MEDICATIONS Unknown Medications RESULTS No Results PROCEDURES No Known procedures INSTRUCTIONS MEDICATIONS ADMINISTERED No Known Medications MEDICAL (GENERAL) HISTORY Type Description Date Medical History 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
--- OUTSIDE RECORDS SUMMARY | 2020-06-18 15:16 | XMS REPORT ---
Author Author Sanjuanita VEGA Organization [facility] [place] Address [address] [place] [address] Care Team Providers Care Rn Cardiac Rehab Name Role Phone SHANIQUE VEGA Unavailable PROBLEMS Type Condition ICD9-CM Code YSQ09-AC Code Onset Dates Condition S tatus SNOMED Code Problem Coronary artery disease I25.10 Active 26382414 Problem Hypertension I10 Active 7669282 3 Problem Other chronic pain G89.29 Active 8 8818546 Problem Hyperlipidemia E78.5 Active 64655 004 Problem Type 2 diabetes mellitus wit hout complication, without long-term current use of insulin E11.9 Active 228576768 Problem Low back pain M54.5 Active 488434 009 Problem Pharyngeal dysphagia R13.13 Active 01288577056988 Problem Anxiety F41.9 Active 26861903 Problem Peripheral vascular disease I73.9 Ac tive 581001895 Problem Suprapubic catheter Z93.59 Active 485918272 Problem Reactive depression F32.9 Active 49766837 Problem Neurogenic bladder N31.9 Active 3 64987549 Problem Ventral hernia without obstruction or gangrene K43 .9 Active 628918296 Problem Insomnia G47.00 Active 497587139 Problem Paroxysmal atrial fibrillation I48.0 Active 535926023 Problem Postmenopausal atrophic vaginitis N95.2 Active 78975050 Problem Encounter for suprapubic catheter care Z43.5 Active [id number] ALLERGIES No Information ENCOUNTERS Encounter Location Date Diagnosis Via [facility] [address] [place] [id number] Jun, Via [facility] [address] [place] [id number] May, Anxiety F41.9 [facility] [place] [address] [facility] [id number] [address] [place] [phone] May, Dysuria R30.0 [facility] [place] [address] [facility] [id number] [address] [place] [phone] May, Strain of right shoulder, scherer bsequent encounter S46.911D and Anxiety F41.9 [place] [address] [facility] [id number] [address] [place] [phone] Apr, Via [facility] [address] [place] [id number] Apr, Strain of right shoulder, subsequent enc ounter S46.911D [place] [address] [facility] [id number] [address] [place] [phone] 14 Apr, 2019 Strain of right shoulder, scherer bsequent encounter S46.911D and Anxiety F41.9 Via [facility] [address] [place] [id number] Apr, Type 2 diabetes mellitus without complic ation, without long-term current use of insulin E11.9 and Neurogenic bladder N31.9 Via [facility] [address] [place] [id number] Apr, Strain of right shoulder, subsequent enc ounter S46.911D ; History of GI bleed Z87.19 ; Neurogenic bladder N31.9 and Reactive depression F32.9 [place] [address] [facility] [id number] [address] [place] [phone] Apr, Acute pain of left shoulder M25.512 [place] [address] [facility] [id number] [address] [place] [phone] Apr, [place] [address] [facility] [id number] [address] [place] [phone] Apr, Anxiety F41.9 and Other plan examiner 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 Via [facility] [address] [place] [id number] March, Gastrointestinal hemorrhage associated w ith acute gastritis K29.01 [place] [address] [facility] [id number] [address] [place] [phone] March, Via [facility] [address] [place] [id number] March, Bronchitis J40 [facility] [place] [address] [id number] [address] [place] [phone] March, Cough R05 [facility] [place] [address] [id number] [address] [place] [phone] March, Other chronic pain G89.29 [facility] [place] [address] [id number] [address] [place] [phone] March, Anxiety F41.9 [facility] [place] [address] [id number] [address] [place] [phone] March, [facility] [place] [address] [id number] [address] [place] [phone] Feb, Other chronic pain G89.29 [facility] [place] [address] [id number] [address] [place] [phone] Feb, Anxiety F41.9 [facility] [place] [address] [id number] [address] [place] [phone] Feb, Other chronic pain G89.29 Via [facility] [address] [place] [id number] Feb, Neurogenic bladder N31.9 and Suprapubic catheter Z93.59 [facility] [place] [address] [id number] [address] [place] [phone] Jan, Anxiety F41.9 [facility] [place] [address] [id number] [address] [place] [phone] Dec, Anxiety F41.9 [facility] [place] [address] [id number] [address] [place] [id number] Dec, Other chronic pain G89.29 an d Anxiety F41.9 [facility] [place] [address] [id number] [address] [place] [phone] Dec, Via [facility] [address] [place] [id number] Dec, Neurogenic bladder N31.9 and Suprapubic catheter Z93.59 [facility] [place] [address] [id number] [address] [place] [phone] Nov, Other chronic pain G89.29 an d Anxiety F41.9 [facility] [place] [address] [id number] [address] [place] [phone] Nov, Via [facility] [address] [place] [id number] Nov, Suprapubic catheter Z93.59 [facility] [place] [address] [id number] [address] [place] [phone] Oct, Other chronic pain G89.29 an d Anxiety F41.9 [facility] [place] [address] [id number] [address] [place] [phone] Oct, [facility] [place] [address] [id number] [address] [place] [phone] Oct, Suprapubic catheter Z93.59 [facility] [place] [address] [id number] [address] [place] [phone] Oct, Via [facility] [address] [place] [id number] Oct, [facility] [place] [address] [id number] [address] [place] [phone] Oct, Anxiety F41.9 [facility] [place] [address] [id number] [address] [place] [phone] Oct, Anxiety F41.9 Via [facility] [address] [place] [id number] Oct, Other chronic pain G89.29 [facility] [place] [address] [id number] [address] [place] [phone] Sep, Other chronic pain G89.29 Via [facility] [address] [place] [id number] Sep, Suprapubic catheter Z93.59 and Cervicalg ia M54.2 [facility] [place] [address] [id number] [address] [place] [phone] Sep, [facility] [place] [address] [id number] [address] [place] [phone] Sep, [facility] [place] [address] [id number] [address] [place] [phone] Sep, Via [facility] [address] [place] [id number] Aug, Cystitis N30.90 [facility] [place] [address] [id number] [address] [place] [phone] Aug, [facility] [place] [address] [id number] [address] [place] [id number] Aug, Other chronic pain G89.29 [facility] [place] [address] [id number] [address] [place] [phone] Aug, Via [facility] [address] [place] [id number] Aug, Encounter for suprapubic catheter care Z 43.5 [facility] [place] [address] [id number] [address] [place] [id number] Jul, Via [facility] [address] [place] [id number] Jul, [facility] [place] [address] [id number] [address] [place] [id number] Jul, Other chronic pain G89.29 [facility] [place] [address] [id number] [address] [place] [phone] Jul, [facility] [place] [address] [id number] [address] [place] [phone] Jul, Via [facility] [address] [place] [id number] Jun, Postmenopausal atrophic vaginitis N95.2 [facility] [place] [address] [id number] [address] [place] [phone] Jun, Other chronic pain G89.29 [facility] [place] [address] [id number] [address] [place] [phone] Jun, Via [facility] [address] [place] [id number] May, Anxiety F41.9 ; Type 2 diabetes mellitus without complication, without long-term current use of insulin E11.9 ; Hypertension I10 ; Low back pain M54.5 ; Paroxysmal atrial fibrillation I48.0 and 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 [facility] [place] [address] [id number] [address] [place] [phone] May, Other chronic pain G89.29 Via [facility] [address] [place] [id number] May, Low back pain M54.5 [place] [address] [id number] [address] [place] [phone] May, [place] [address] [id number] [address] [place] [id number] Apr, Other chronic pain G89.29 [facility] [place] [address] [id number] [address] [place] [phone] Apr, [facility] [place] [address] [id number] [address] [place] [phone] Apr, Via [facility] [address] [place] [id number] Apr, Closed compression fracture of L3 lumbar vertebra with routine healing, subsequent encounter S32.030D [facility] [address] [place] [id number] Apr, 2018 Low back pain M54.5 [facility] [address] [place] [id number] Apr, Coccydynia M53.3 [facility] [place] [address] [id number] [address] [place] [phone] March, [facility] [place] [address] [id number] [address] [place] [id number] March, Other chronic pain G89.29 [facility] [place] [address] [id number] [address] [place] [phone] March, [facility] [place] [address] [facility] [id number] [address] [place] [phone] March, [facility] [place] [address] [facility] [id number] [address] [place] [phone] Feb, [facility] [place] [address] [id number] [address] [place] [phone] Feb, Other chronic pain G89.29 Via [facility] [address] [place] [id number] Feb, Other chronic pain G89.29 and Anxiety F4 1.9 [facility] [place] [address] [facility] [id number] [address] [place] [phone] Feb, [facility] [place] [address] [facility] [id number] [address] [place] [phone] Jan, [facility] [place] [address] [facility] [id number] [address] [place] [phone] Jan, [facility] [place] [address] [facility] [id number] [address] [place] [phone] Jan, [facility] [place] [address] [facility] [id number] [address] [place] [phone] Jan, [facility] [place] [address] 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 ; Other chronic pain G89.29 ; Anxiety F41.9 ; Reactive depression F32.9 ; Insomnia G47.00 and Type 2 diabetes mellitus without complication, without long-term current use of insulin E11.9 [facility] [place] [id number] [phone] Nov, [facility] [id number] [place] [id number] Nov, Anxiety F41.9 [facility] [place] [address] [id number] [address] [place] [phone] Nov, [facility] [address] [id number] [place] [id number] Nov, Anxiety F41.9 Via [facility] [address] [place] [id number] Nov, Status post surgery Z98.890 ; Confused R 41.0 ; Anxiety F41.9 and Other chronic pain G89.29 [facility] [address] [id number] [place] [id number] Nov, Other chronic pain G89.29 [facility] [place] [address] [facility] [id number] [address] [place] [phone] Oct, [facility] [address] [id number] [place] [id number] Oct, Other chronic pain G89.29 [facility] [place] [address] [id number] [address] [place] [phone] Oct, Anxiety F41.9 [facility] [address] [id number] [place] [id number] Sep, Other chronic pain G89.29 [facility] [address] [id number] [place] [id number] Sep, Via [facility] [address] [place] [id number] Aug, Dysuria R30.0 and Anxiety F41.9 [facility] [place] [address] [id number] [address] [place] [phone] Aug, [facility] [address] [id number] [place] [id number] Aug, Other chronic pain G89.29 [facility] [place] [address] [id number] [address] [place] [phone] Jul, Other chronic pain G89.29 [facility] [address] [id number] [place] [id number] Jun, [facility] [address] [id number] [place] [facility] [place] [id number] Jun, Other chronic pain G89.29 [facility] [place] [address] [facility] [id number] [address] [place] [phone] Jun, [facility] [place] [address] [id number] [address] [place] [id number] May, Other chronic pain G89.29 [facility] [place] [address] [id number] [address] [place] [phone] Apr, Other chronic pain G89.29 Via [facility] [address] [place] [id number] Apr, Reactive depression F32.9 and Pharyngeal dysphagia R13.13 [facility] [place] [address] [facility] [id number] [address] [place] [phone] Apr, Urinary tract infection with out hematuria, site unspecified N39.0 [facility] [place] [address] [facility] [id number] [address] [place] [id number] March, Other chronic pain G89.29 [facility] [place] [address] [facility] [id number] [address] [place] [phone] Feb, Other chronic pain G89.29 [facility] [place] [address] [id number] [address] [place] [phone] Feb, [facility] [address] [id number] [place] [id number] Feb, Via [facility] [address] [place] [id number] Feb, Dysuria R30.0 and Ventral hernia without obstruction or gangrene K43.9 [facility] [place] [address] [facility] [id number] [address] [place] [phone] Jan, Other chronic pain G89.29 [facility] [address] [id number] [id number] Dec, Other chronic pain G89.29 [facility] [place] [address] [id number] [address] [place] [phone] Nov, Other chronic pain G89.29 Via [facility] [address] [place] [id number] Nov, Lymphadenitis I88.9 [facility] [place] [address] [id number] [address] [place] [phone] Nov, Other chronic pain G89.29 [facility] [place] [address] [id number] [address] [place] [phone] Nov, [facility] [id number] [place] [id number] Nov, Other chronic pain G89.29 Via [facility] [address] [place] [id number] Oct, Low back pain M54.5 ; Hypertension I10 a nd Type 2 diabetes mellitus without complication, without long-term current use of insulin E11.9 [facility] [place] [address] [id number] [address] [place] [phone] Oct, [facility] [place] [address] [id number] [address] [place] [phone] Oct, [facility] [place] [address] [id number] [address] [place] [phone] Oct, [facility] [place] [address] [id number] [address] [place] [phone] Oct, [facility] [place] [address] [id number] [address] [place] [phone] Sep, [facility] [place] [address] [id number] [address] [place] [id number] Sep, [facility] [place] [address] [id number] [address] [place] [phone] 10 Aug, 2016 Other chronic pain G89.29 [facility] [place] [address] [id number] [address] [place] [phone] Jul, [facility] [place] [address] [id number] [address] [place] [phone] Jul, [facility] [place] [address] [id number] [address] [place] [id number] Jul, [facility] [place] [address] [id number] [address] [place] [phone] Jun, [facility] [place] [address] [id number] [address] [place] [id number] Jun, [facility] [address] [place] [id number] Jun, Low back pain M54.5 ; Other chronic pain G89.29 and Coronary artery disease I25.10 [facility] [place], [facility] [address] [id number] [address] [place] [phone] Jun, [facility] [place] [address] [id number] [address] [place] [phone] May, [facility] [place] [address] [id number] [address] [place] [phone] May, [facility] [place] [address] [id number] [address] [place] [phone] May, Other chronic pain G89.29 [facility] [place] [address] [id number] [address] [place] [phone] May, [facility] [place] [address] [id number] [address] [place] [id number] Apr, [facility] [place] [address] [id number] [address] [place] [id number] 17 Apr, 2016 Acute cystitis without hemat uria N30.00 [facility] [place] [address] [id number] [address] [place] [id number] 16 Apr, 2016 Acute cystitis without hemat uria N30.00 ; Coronary artery disease I25.10 ; Low back pain M54.5 and Other chronic pain G89.29 [facility] [place] [address] [id number] [address] [place] [id number] Apr, Other chronic pain G89.29 [facility] [place] [address] [id number] [address] [place] [place] [id number] March, Other chronic pain G89.29 [facility] [place] [address] [id number] [address] [place] [address] Feb, [facility] [place] [address] [id number] [address] [place] [address] Feb, Arthritis M19.90 [facility] [place] [address] [id number] [address] [place] [id number] Feb, [facility] [place] [address] [id number] [address] [place] [phone] Jan, [facility] [place] [address] [id number] [address] [place] [id number] Jan, [facility] [place] [address] [id number] [address] [place] [phone] Jan, Other chronic pain G89.29 [facility] [place] [address] [id number] [address] [place] [id number] Jan, Hypertension I10 ; Coronary artery disease I25.10 and Insomnia G47.00 [facility] [place] [address] [id number] [address] [place] [id number] Jan, [facility] [place] [address] [id number] [address] [place] [id number] 29 Dec, 2015 Right hip pain M25.551 [facility] [place] [address] [id number] [address] [place] [id number] Dec, [facility] [place] [address] [facility] [id number] [address] [place] [phone] Dec, [facility] [place] [address] [id number] [address] [place] [id number] Dec, [facility] [place] [address] [facility] [id number] [address] [place] [phone] Dec, Other chronic pain G89.29 [facility] [place] [address] [id number] [address] [place] [id number] Dec, [facility] [place] [address] [id number] [address] [place] [id number] Nov, [facility] [place] [address] [facility] [id number] [address] [place] [id number] Nov, Other chronic pain G89.29 [facility] [place] [address] [facility] [id number] [address] [place] [id number] Nov, Right hip pain M25.551 and C oronary artery disease I25.10 [facility] [place] [address] [id number] [address] [place] [id number] Nov, Other chronic pain G89.29 [facility] [place] [address] [id number] [address] [place] [id number] Oct, [facility] [place] [address] [facility] [id number] [address] [place] [phone] Oct, [facility] [place] [address] [facility] [id number] [address] [place] [phone] Sep, [facility] [place] [address] [facility] [id number] [address] [place] [phone] Sep, [facility] [place] [address] [facility] [id number] [address] [place] [phone] Aug, [facility] [place] [address] [facility] [id number] [address] [place] [id number] 15 Aug, 2015 Hypertension I10 ; Coronary artery disease I25.10 and Arthritis M19.90 [facility] [place] [address] [id number] [address] [place] [id number] Jun, [facility] [place] [address] [id number] [address] [place] [phone] Jun, Essential hypertension, jayson gn 401.1 ; Other chronic pain 338.29 and Chronic airway obstruction, not elsewhere classified [address] [facility] [address] [id number] [address] [place] [address], [place] [address] Jun, [facility] [address] [id number] [address] [place] [id number] Jun, [facility] [place] [address] [id number] [address] [place] [address], [place] [address] Jun, [facility] [place] [address] [id number] [address] [place] [phone] May, [facility] [place] [address] [id number] [address] [place] [phone] May, [facility] [place] [address] [id number] [address] [place] [id number] Apr, [facility] [place] [address] [id number] [address] [place] [id number] Apr, [facility] [place] [address] [id number] [address] [place] [phone] Apr, [facility] [place] [address] [id number] [address] [place] [phone] March, [facility] [place] [address] [id number] [address] [place] [phone] March, [facility] [place] [address] [id number] [address] [place] [phone] March, [facility] [place] [address] [id number] [address] [place] [id number] March, [facility] [place] [address] [id number] [address] [place] [id number] March, Sialadenitis 527.2 [facility] [address] [id number] [address] [place] [address], [place] [address] Feb, [facility] [address] [id number] [address] [place] [address], [place] [address] Feb, [facility] [address] [id number] [address] [place] [address], [place] [address] Feb, [facility] [address] [id number] [address] [place] [address], [place] [address] Feb, [facility] [address] [id number] [address] [place] [address], [place] [address] Feb, [facility] [address] [id number] [address] [place] [address], [place] [address] Jan, [facility] [address] [id number] [address] [place] [address], [place] [address] Jan, [facility] [address] [id number] [address] [place] [address], [place] [address] Jan, [facility] [address] [id number] [address] [place] [address], [place] [address] Jan, [facility] [address] [id number] [address] [place] [address], [place] [address] Jan, [facility] [address] [id number] [address] [place] [address], [place] [address] Jan, [facility] [address] [id number] [address] [place] [phone] Dec, [facility] [address] [id number] [address] [place] [address], [place] [address] Dec, [facility] [address] [id number] [address] [place] [address], [place] [address] Dec, [facility] [address] [id number] [address] [place] [address], [place] [address] Dec, [facility] [address] [id number] [address] [place] [address] [place] [address] Dec, [facility] [address] [id number] [address] [place] [address], [place] [address] Dec, [facility] [address] [id number] [address] [place] [address], [place] [address] Nov, [facility] [address] [id number] [address] [place] [address], [place] [address] Nov, [facility] [address] [id number] [address] [place] [address], [place] [address] Nov, [facility] [address] [id number] [address] [place] [address], [place] [address] Nov, [facility] [address] [id number] [address] [place] [address], [place] [address] Nov, [facility] [address] [id number] [address] [place] [address], [place] [address] Nov, [facility] [address] [id number] [address] [place] [address], [place] [address] Nov, [facility] [address] [id number] [address] [place] [address], [place] [address] Nov, [facility] [address] [id number] [address] [place] [address], [place] [address] Nov, [facility] [address] [id number] [address] [place] [address], [place] [address] Nov, [facility] [address] [id number] [address] [place] [address], [place] [address] Nov, [facility] [address] [id number] [address] [place] [address], [place] [address] Nov, [facility] [address] [id number] [address] [place] [address], [place] [address] Nov, [facility] [address] [id number] [address] [place] [phone] Nov, [facility] [address] [id number] [address] [place] [address], [place] [address] Oct, [facility] [address] [id number] [address] [place] [address], [place] [address] Oct, [facility] [address] [id number] [address] [place] [address], [place] [address] Oct, [facility] [address] [id number] [address] [place] [address], [place] [address] Oct, [facility] [address] [id number] [address] [place] [address], [place] [address] Oct, [facility] [address] [id number] [address] [place] [address], [place] [address] Oct, [facility] [address] [id number] [address] [place] [address], [place] [address] Oct, [facility] [address] [id number] [address] [place] [address], [place] [address] Oct, [facility] [address] [id number] [address] [place] [address], [place] [address] Oct, [facility] [address] [id number] [address] [place] [address], [place] [address] Sep, [facility] [address] [id number] [address] [place] [address], [place] [address] Sep, [facility] [address] [id number] [address] [place] [address], [place] [address] Sep, [facility] [address] [id number] [address] [place] [address], [place] [address] Sep, [facility] [address] [id number] [address] [place] [address], [place] [address] Sep, [facility] [address] [id number] [address] [place] [address], [place] [address] Sep, [facility] [address] [id number] [address] [place] [address], [place] [address] Sep, [facility] [address] [id number] [address] [place] [address], [place] [address] Sep, [facility] [address] [id number] [address] [place] [address], [place] [address] Sep, [facility] [address] [id number] [address] [place] [address], [place] [address] Sep, [facility] [address] [id number] [address] [place] [address] Sep, [facility] [address] [id number] [address] [place] [address], [place] [address] Sep, [facility] [address] [id number] [address] [place] [id number] Aug, [facility] [address] [id number] [address] [place] [address], [place] [address] Aug, [facility] [address] [id number] [address] [place] [id number] Aug, [facility] [address] [id number] [address] [place] [address], [place] [address] Aug, [facility] [address] [id number] [address] [place] [address], [place] [address] Aug, [facility] [address] [id number] [address] [place] [address] Aug, [facility] [address] [id number] [address] [place] [phone] Aug, [facility] [address] [id number] [address] [place] [address], [place] [address] Aug, [facility] [address] [id number] [address] [place] [address], [place] [address] 30 Jul, 2014 [facility] [address] [id number] [address] [place] [address], [place] [address] 30 Jul, 2014 [facility] [address] [id number] [facility] [place] [address] 30 Jul, 2013 [facility] [address] [id number] [facility] [place] [address] 30 Jul, 2013 [facility] [address] [id number] [facility] [place] [address] 25 Jul, 2013 [facility] [address] [id number] [address] [place] [address], [place] [address] 25 Jul, 2013 [facility] [address] [id number] [address] [place] [address], [place] [address] 15 Jul, 2013 [facility] [address] [id number] [address] [place] [address], [place] [address] 15 Jul, 2014 [facility] [address] [id number] [address] [place] [address], [place] [address] Jul, [facility] [address] [id number] [address] [place] [address], [place] [address] Jul, [facility] [address] [id number] [address] [place] [address], [place] [address] Jun, [facility] [address] [id number] [address] [place] [address], [place] [address] Jun, [facility] [address] [id number] [address] [place] [address], [place] [address] Jun, [facility] [address] [id number] [address] [place] [address], [place] [address] Jun, [facility] [address] [id number] [address] [place] [address], [place] [address] Jun, [facility] [address] [id number] [address] [place] [address], [place] [address] Jun, [facility] [address] [id number] [address] [place] [address], [place] [address] Jun, [facility] [address] [id number] [address] [place] [address], [place] [address] Jun, [facility] [address] [id number] [address] [place] [address], [place] [address] Jun, [facility] [address] [id number] [address] [place] [address], [place] [address] Jun, [facility] [address] [id number] [address] [place] [address], [place] [address] Jun, [facility] [address] [id number] [address] [place] [address], [place] [address] Jun, [facility] [address] [id number] [address] [place] [address], [place] [address] Jun, [facility] [address] [id number] [address] [place] [address], [place] [address] Jun, [facility] [address] [id number] [address] [place] [address], [place] [address] Jun, [facility] [address] [id number] [address] [place] [address], [place] [address] Jun, [facility] [address] [id number] [address] [place] [address], [place] [address] Jun, [facility] [address] [id number] [address] [place] [address], [place] [address] Jun, [facility] [address] [id number] [address] [place] [address], [place] [address] Jun, [facility] [address] [id number] [address] [place] [address], [place] [address] Jun, [facility] [address] [id number] [address] [place] [address], [place] [address] Jun, [facility] [address] [id number] [address] [place] [address], [place] [address] Jun, [facility] [address] [id number] [address] [place] [address], [place] [address] May, [facility] [address] [id number] [address] [place] [address], [place] [address] May, [facility] [address] [id number] [facility] [place] [address] May, [facility] [address] [id number] [address] [place] [address], [place] [address] May, [facility] [address] [id number] [address] [place] [address], [place] [address] May, [facility] [address] [id number] [address] [place] [address], [place] [address] May, [facility] [address] [id number] [address] [place] [address], [place] [address] May, [facility] [address] [id number] [address] [place] [address], [place] [address] May, [facility] [address] [id number] [address] [place] [address], [place] [address] May, [facility] [address] [id number] [address] [place] [address], [place] [address] May, [facility] [address] [id number] [address] [place] [address], [place] [address] May, [facility] [address] [id number] [address] [place] [address], [place] [address] May, [facility] [address] [id number] [address] [place] [address], [place] [address] May, [facility] [address] [id number] [address] [place] [address], [place] [address] Apr, [facility] [address] [id number] [address] [place] [address], [place] [address] Apr, [facility] [address] [id number] [address] [place] [address], [place] [address] Apr, [facility] [address] [id number] [address] [place] [address], [place] [address] Apr, [facility] [address] [id number] [facility] [place] [place] [address] Apr, [facility] [address] [id number] [facility] [place] [place] [address] Apr, [facility] [address] [id number] [facility] [place] [address] Apr, [facility] [address] [id number] [facility] [place] [place] [address] Apr, [facility] [address] [id number] [facility] [place] [address] Apr, [facility] [address] [id number] [facility] [place] [place] [address] March, [facility] [address] [id number] [address] [place] [address], [place] [address] March, [facility] [address] [id number] [address] [place] [address], [place] [address] March, [facility] [address] [id number] [address] [place] [address], [place] [address] March, [facility] [address] [id number] [address] [place] [address], [place] [address] March, [facility] [address] [id number] [address] [place] [address], [place] [address] March, [facility] [address] [id number] [address] [place] [address], [place] [address] March, [facility] [address] [id number] [address] [place] [address], [place] [address] March, [facility] [address] [id number] [address] [place] [address], [place] [address] March, [facility] [address] [id number] [facility] [place] [place] [address] March, [facility] [address] [id number] [address] [place] [address], [place] [address] March, [facility] [address] [id number] [facility] [place] [place] [address] March, [facility] [address] [id number] [address] [place] [address], [place] [address] March, [facility] [address] [id number] [address] [place] [address], [place] [address] March, [facility] [address] [id number] [address] [place] [address], [place] [address] March, [facility] [address] [id number] [address] [place] [address], [place] [address] March, [facility] [address] [id number] [address] [place] [address], [place] [address] March, [facility] [address] [id number] [address] [place] [address], [place] [address] March, [facility] [address] [id number] [address] [place] [address], [place] [address] March, [facility] [address] [id number] [address] [place] [address], [place] [address] March, [facility] [address] [id number] [address] [place] [address], [place] [address] Feb, [facility] [address] [id number] [address] [place] [address], [place] [address] Feb, [facility] [address] [id number] [address] [place] [address], [place] [address] Feb, [facility] [address] [id number] [address] [place] [address], [place] [address] Feb, [facility] [address] [id number] [address] [place] [address], [place] [address] Feb, [facility] [address] [id number] [address] [place] [address], [place] [address] Feb, [facility] [address] [id number] [facility] [place] [address] 11 Feb, 2014 [facility] [address] [id number] [address] [place] [address], [place] [address] Feb, [facility] [address] [id number] [facility] [place] [address] Jan, [facility] [address] [id number] [address] [place] [address], [place] [address] Jan, [facility] [address] [id number] [address] [place] [address], [place] [address] Jan, [facility] [address] [id number] [address] [place] [address], [place] [address] Jan, [facility] [address] [id number] [address] [place] [address], [place] [address] Jan, [facility] [address] [id number] [address] [place] [address], [place] [address] Jan, [facility] [address] [id number] [address] [place] [address], [place] [address] Jan, [facility] [address] [id number] [address] [place] [address], [place] [address] Jan, [facility] [address] [id number] [address] [place] [address], [place] [address] Jan, [facility] [address] [id number] [address] [place] [address], [place] [address] Jan, [facility] [address] [id number] [address] [place] [address], [place] [address] Dec, [facility] [address] [id number] [address] [place] [address], [place] [address] Dec, [facility] [address] [id number] [address] [place] [address], [place] [address] Dec, [facility] [address] [id number] [address] [place] [address], [place] [address] 2013 [facility] [address] [id number] [facility] [place] [address] 2013 [facility] [address] [id number] [address] [place] [address], [place] [address] Dec, [facility] [address] [id number] [facility] [place] [place] [address] Dec, [facility] [address] [id number] [address] [place] [address], [place] [address] Dec, [facility] [address] [id number] [address] [place] [address], [place] [address] Nov, [facility] [address] [id number] [address] [place] [address], [place] [address] Nov, [facility] [address] [id number] [address] [place] [address], [place] [address] Nov, [facility] [address] [id number] [address] [place] [address], [place] [address] Nov, [facility] [address] [id number] [address] [place] [address], [place] [address] Nov, [facility] [address] [id number] [address] [place] [address], [place] [address] Nov, [facility] [address] [id number] [address] [place] [address], [place] [address] Nov, [facility] [address] [id number] [address] [place] [address], [place] [address] Nov, [facility] [address] [id number] [address] [place] [address], [place] [address] Nov, [facility] [address] [id number] [address] [place] [address], [place] [address] Nov, [facility] [address] [id number] [address] [place] [address], [place] [address] Nov, [facility] [address] [id number] [address] [place] [address], [place] [address] 15 Nov, 2013 [facility] [address] [id number] [address] [place] [address], [place] [address] 15 Nov, 2013 [facility] [address] [id number] [address] [place] [address], [place] [address] 30 Oct, 2013 [facility] [address] [id number] [address] [place] [address], [place] [address] 30 Oct, 2013 [facility] [address] [id number] [address] [place] [address], [place] [address] Oct, [facility] [address] [id number] [address] [place] [address], [place] [address] Oct, [facility] [address] [id number] [address] [place] [address], [place] [address] Oct, [facility] [address] [id number] [address] [place] [address], [place] [address] Oct, [facility] [address] [id number] [address] [place] [address], [place] [address] 18 Oct, 2013 [facility] [address] [id number] [address] [place] [address], [place] [address] 18 Oct, 2013 [facility] [address] [id number] [address] [place] [address], [place] [address] Oct, [facility] [address] [id number] [address] [place] [address], [place] [address] 17 Oct, 2013 [facility] [address] [id number] [address] [place] [address], [place] [address] Oct, [facility] [address] [id number] [address] [place] [address], [place] [address] Oct, [facility] [address] [id number] [address] [place] [address], [place] [address] Oct, [facility] [address] [id number] [address] [place] [address], [place] [address] Oct, [facility] [address] [id number] [address] [place] [address], [place] [address] 14 Sep, 2013 [facility] [address] [id number] [address] [place] [address], [place] [address] Sep, [facility] [address] [id number] [address] [place] [address], [place] [address] 05 Sep, 2013 [facility] [address] [id number] [address] [place] [address], [place] [address] Sep, [facility] [address] [id number] [address] [place] [address], [place] [address] Sep, [facility] [address] [id number] [address] [place] [address], [place] [address] Sep, [facility] [address] [id number] [address] [place] [address], [place] [address] Sep, [facility] [address] [id number] [address] [place] [address], [place] [address] Sep, [facility] [address] [id number] [address] [place] [address], [place] [address] Sep, [facility] [address] [id number] [address] [place] [address], [place] [address] Sep, [facility] [address] [id number] [address] [place] [address], [place] [address] Aug, [facility] [address] [id number] [address] [place] [address], [place] [address] Aug, [facility] [address] [id number] [address] [place] [address], [place] [address] Aug, [facility] [address] [id number] [address] [place] [address], [place] [address] Aug, [facility] [address] [id number] [address] [place] [address], [place] [address] Aug, [facility] [address] [id number] [address] [place] [address] 23 Aug, 2013 [facility] [address] [id number] [address] [place] [address], [place] [address] 23 Aug, 2013 [facility] [address] [id number] [address] [place] [address], [place] [address] 23 Aug, 2013 [facility] [address] [id number] [address] [place] [address], [place] [address] 22 Aug, 2013 [facility] [address] [id number] [address] [place] [address] 22 Aug, 2012 [facility] [address] [id number] [address] [place] [address], [place] [address] 18 Aug, 2013 [facility] [address] [id number] [address] [place] [address] 18 Aug, 2013 [facility] [address] [id number] [address] [place] [address], [place] [address] 18 Aug, 2013 [facility] [address] [id number] [address] [place] [address] 18 Aug, 2013 [facility] [address] [id number] [address] [place] [address], [place] [address] 17 Aug, 2013 [facility] [address] [id number] [address] [place] [address] 14 Aug, 2013 [facility] [address] [id number] [address] [place] [address] 14 Aug, 2013 [facility] [address] [id number] [address] [place] [address] 01 Aug, 2013 [facility] [address] [id number] [address] [place] [address], [place] [address] 20 Jul, 2012 [facility] [address] [id number] [address] [place] [address], [place] [address] 19 Jul, 2012 [facility] [address] [id number] [address] [place] [id number] 18 Jul, 2012 [facility] [address] [id number] [facility] [place] [address] Jul, [facility] [address] [id number] [address] [place] [address], [place] [address] Jul, [facility] [address] [id number] [address] [place] [address], [place] [address] Jun, [facility] [address] [id number] [address] [place] [address], [place] [address] Jun, [facility] [address] [id number] [address] [place] [address], [place] [address] Jun, [facility] [address] [id number] [address] [place] [address], [place] [address] Jun, [facility] [address] [id number] [address] [place] [address], [place] [address] Jun, [facility] [address] [id number] [address] [place] [address], [place] [address] Jun, [facility] [address] [id number] [address] [place] [address], [place] [address] Jun, [facility] [address] [id number] [address] [place] [address], [place] [address] Jun, [facility] [address] [id number] [address] [place] [address], [place] [address] Jun, [facility] [address] [id number] [address] [place] [address], [place] [address] Jun, [facility] [address] [id number] [address] [place] [address], [place] [address] May, [facility] [address] [id number] [address] [place] [address], [place] [address] May, [facility] [address] [id number] [address] [place] [address], [place] [address] May, [facility] [address] [id number] [address] [place] [address], [place] [address] May, [facility] [address] [id number] [address] [place] [address], [place] [address] May, [facility] [address] [id number] [address] [place] [address], [place] [address] May, [facility] [address] [id number] [address] [place] [address], [place] [address] May, [facility] [address] [id number] [address] [place] [address], [place] [address] May, [facility] [address] [id number] [address] [place] [address], [place] [address] May, [facility] [address] [id number] [address] [place] [address], [place] [address] Apr, [facility] [address] [id number] [address] [place] [address], [place] [address] Apr, [facility] [address] [id number] [address] [place] [address], [place] [address] Apr, [facility] [address] [id number] [address] [place] [address], [place] [address] Apr, [facility] [address] [id number] [address] [place] [address], [place] [address] Apr, [facility] [address] [id number] [address] [place] [address], [place] [address] Apr, [facility] [address] [id number] [address] [place] [address] Apr, [facility] [address] [id number] [address] [place] [address], [place] [address] March, [facility] [address] [id number] [address] [place] [address], [place] [address] Feb, [facility] [address] [id number] [address] [place] [address] Feb, [facility] [address] [id number] [address] [place] [address], [place] [address] 12 Feb, 2013 [facility] [address] [id number] [address] [place] [address], [place] [address] 28 Jan, 2013 [facility] [address] [id number] [address] [place] [address], [place] [address] 21 Jan, 2013 [facility] [address] [id number] [address] [place] [address], [place] [address] 19 Jan, 2013 [facility] [address] [id number] [address] [place] [address], [place] [address] 14 Jan, 2013 [facility] [address] [id number] [address] [place] [address], [place] [address] 12 Jan, 2013 [facility] [address] [id number] [address] [place] [address], [place] [address] 08 Jan, 2013 [facility] [address] [id number] [address] [place] [address], [place] [address] 07 Jan, 2013 [facility] [address] [id number] [address] [place] [address], [place] [address] 04 Jan, 2013 [facility] [address] [id number] [address] [place] [address], [place] [address] 28 Dec, 2012 [facility] [address] [id number] [address] [place] [address], [place] [address] 25 Dec, 2012 [facility] [address] [id number] [address] [place] [address], [place] [address] 13 Dec, 2012 [facility] [address] [id number] [address] [place] [address], [place] [address] 11 Dec, 2012 [facility] [address] [id number] [address] [place] [address], [place] [address] 07 Dec, 2012 [facility] [address] [id number] [address] [place] [address], [place] [address] 06 Dec, 2012 [facility] [address] [id number] [address] [place] [address], [place] [address] 05 Dec, 2012 [facility] [address] [id number] [address] [place] [address], [place] [address] Nov, [facility] [address] [id number] [address] [place] [address], [place] [address] 24 Nov, 2012 [facility] [address] [id number] [address] [place] [address], [place] [address] Nov, [facility] [address] [id number] [address] [place] [address], [place] [address] Nov, [facility] [address] [id number] [address] [place] [address], [place] [address] Nov, [facility] [address] [id number] [address] [place] [address], [place] [address] Nov, [facility] [address] [id number] [address] [place] [address], [place] [address] Nov, [facility] [address] [id number] [address] [place] [address], [place] [address] Oct, [facility] [address] [id number] [address] [place] [address], [place] [address] Oct, [facility] [address] [id number] [address] [place] [address], [place] [address] Oct, [facility] [address] [id number] [address] [place] [address], [place] [address] Oct, [facility] [address] [id number] [address] [place] [address], [place] [address] Oct, [facility] [address] [id number] [address] [place] [address], [place] [address] Oct, [facility] [address] [id number] [address] [place] [address], [place] [address] Oct, [facility] [address] [id number] [address] [place] [address], [place] [address] Oct, [facility] [address] [id number] [address] [place] [address] Oct, [facility] [address] [id number] [address] [place] [address], [place] [address] Oct, [facility] [address] [id number] [address] [place] [address] Oct, [facility] [address] [id number] [address] [place] [address], [place] [address] Oct, [facility] [address] [id number] [address] [place] [address] Sep, [facility] [address] [id number] [address] [place] [address], [place] [address] Sep, [facility] [address] [id number] [address] [place] [address], [place] [address] Sep, [facility] [address] [id number] [address] [place] [address] Sep, [facility] [address] [id number] [address] [place] [address] Sep, [facility] [address] [id number] [address] [place] [address] Sep, [facility] [address] [id number] [address] [place] [address] Sep, [facility] [address] [id number] [address] [place] [address] Sep, [facility] [address] [id number] [address] [place] [address] Sep, [facility] [address] [id number] [address] [place] [address] Sep, [facility] [address] [id number] [address] [place] [address] Sep, [facility] [address] [id number] [address] [place] [address], [place] [address] Aug, [facility] [address] [id number] [address] [place] [address], [place] [address] Aug, [facility] [address] [id number] [address] [place] [address], [place] [address] Aug, [facility] [address] [id number] [address] [place] [address], [place] [address] Aug, [facility] [address] [id number] [address] [place] [address], [place] [address] Aug, [facility] [address] [id number] [address] [place] [address], [place] [address] Aug, [facility] [address] [id number] [address] [place] [address], [place] [address] Aug, [facility] [address] [id number] [address] [place] [address], [place] [address] Aug, [facility] [address] [id number] [address] [place] [address], [place] [address] Aug, [facility] [address] [id number] [address] [place] [address], [place] [address] Aug, [facility] [address] [id number] [address] [place] [address], [place] [address] 22 Jul, 2012 [facility] [address] [id number] [address] [place] [address], [place] [address] 20 Jul, 2012 [facility] [address] [id number] [address] [place] [address], [place] [address] 10 Jul, 2012 [facility] [address] [id number] [address] [place] [address], [place] [address] 06 Jul, 2012 [facility] [address] [id number] [address] [place] [address], [place] [address] 30 Jun, 2012 [facility] [address] [id number] [address] [place] [address], [place] [address] Jun, [facility] [address] [id number] [address] [place] [address], [place] [address] Jun, [facility] [address] [id number] [facility] [place] [address] Jun, [facility] [address] [id number] [address] [place] [address], [place] [address] Jun, [facility] [address] [id number] [address] [place] [address], [place] [address] Jun, [facility] [address] [id number] [address] [place] [address], [place] [address] Jun, [facility] [address] [id number] [address] [place] [address], [place] [address] May, [facility] [address] [id number] [address] [place] [address], [place] [address] May, [facility] [address] [id number] [address] [place] [address], [place] [address] May, [facility] [address] [id number] [address] [place] [address], [place] [address] May, [facility] [address] [id number] [address] [place] [address], [place] [address] May, [facility] [address] [id number] [address] [place] [address], [place] [address] Apr, [facility] [address] [id number] [address] [place] [address], [place] [address] Apr, [facility] [address] [id number] [address] [place] [address], [place] [address] Apr, [facility] [address] [id number] [address] [place] [address], [place] [address] Apr, [facility] [address] [id number] [address] [place] [address], [place] [address] Apr, [facility] [address] [id number] [address] [place] [address], [place] [address] March, [facility] [address] [id number] [address] [place] [address], [place] [address] March, [facility] [address] [id number] [address] [place] [address], [place] [address] March, [facility] [address] [id number] [address] [place] [address], [place] [address] March, [facility] [address] [id number] [address] [place] [address], [place] [address] March, [facility] [address] [id number] [address] [place] [address], [place] [address] March, [facility] [address] [id number] [address] [place] [address], [place] [address] March, [facility] [address] [id number] [address] [place] [address], [place] [address] March, [facility] [address] [id number] [address] [place] [address], [place] [address] March, [facility] [address] [id number] [address] [place] [address], [place] [address] March, [facility] [address] [id number] [address] [place] [address], [place] [address] 30 Feb, 2012 [facility] [address] [id number] [address] [place] [address], [place] [address] 27 Feb, 2012 [facility] [address] [id number] [address] [place] [address], [place] [address] 26 Feb, 2012 [facility] [address] [id number] [address] [place] [address], [place] [address] 19 Feb, 2012 [facility] [address] [id number] [address] [place] [address], [place] [address] 17 Feb, 2012 [facility] [address] [id number] [address] [place] [address], [place] [address] Feb, [facility] [address] [id number] [address] [place] [address], [place] [address] 12 Feb, 2012 [facility] [address] [id number] [address] [place] [address], [place] [address] Feb, [facility] [address] [id number] [address] [place] [address], [place] [address] Feb, [facility] [address] [id number] [address] [place] [address], [place] [address] Jan, [facility] [address] [id number] [address] [place] [address], [place] [address] Jan, [facility] [address] [id number] [address] [place] [address], [place] [address] Jan, [facility] [address] [id number] [address] [place] [address], [place] [address] Jan, [facility] [address] [id number] [address] [place] [address], [place] [address] Dec, [facility] [address] [id number] [address] [place] [address], [place] [address] Dec, [facility] [address] [id number] [address] [place] [address], [place] [address] Nov, [facility] [address] [id number] [address] [place] [address], [place] [address] Nov, [facility] [address] [id number] [address] [place] [address], [place] [address] Nov, [facility] [address] [id number] [address] [place] [address], [place] [address] Nov, [facility] [address] [id number] [address] [place] [address], [place] [address] Nov, [facility] [address] [id number] [address] [place] [address], [place] [address] Oct, [facility] [address] [id number] [address] [place] [address], [place] [address] Oct, [facility] [address] [id number] [address] [address] Oct, [facility] [place] [address] [id number] [address] [place] [id number] Oct, [facility] [place] [address] [id number] [address] [place] [phone] Oct, [facility] [place] [address] [id number] [address] [place] [phone] Oct, [facility] [place] [address] [id number] [address] [place] [id number] Oct, [facility] [place] [address] [id number] [address] [place] [id number] Oct, [facility] [place] [address] 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
--- OUTSIDE RECORDS SUMMARY | 2020-06-18 15:17 | XMS REPORT ---
Author Author Sanjuanita VEGA Organization [facility] Address [address] [place] [address] Care Team Providers Care Rn Quality Name Role Phone SHANIQUE VEGA Unavailable PROBLEMS Type Condition ICD9-CM Code LCU24-CW Code Onset Dates Condition S tatus SNOMED Code Problem Coronary artery disease I25.10 Active 28013048 Problem Hypertension I10 Active 0186968 3 Problem Other chronic pain G89.29 Active 8 8925772 Problem Hyperlipidemia E78.5 Active 47644 004 Problem Type 2 diabetes mellitus wit hout complication, without long-term current use of insulin E11.9 Active 218312734 Problem Low back pain M54.5 Active 040667 009 Problem Pharyngeal dysphagia R13.13 Active 14931607167972 Problem Anxiety F41.9 Active 17830488 Problem Peripheral vascular disease I73.9 Ac tive 927696993 Problem Suprapubic catheter Z93.59 Active 626273625 Problem Reactive depression F32.9 Active 32633348 Problem Neurogenic bladder N31.9 Active 3 50911854 Problem Ventral hernia without obstruction or gangrene K43 .9 Active 189525168 Problem Insomnia G47.00 Active 953898739 Problem Paroxysmal atrial fibrillation I48.0 Active 910690801 Problem Postmenopausal atrophic vaginitis N95.2 Active 18613150 Problem Encounter for suprapubic catheter care Z43.5 Active [id number] ALLERGIES No Information ENCOUNTERS Encounter Location Date Diagnosis Via [facility] [address] [place] [id number] Jun, Via [facility] [address] [place] [id number] May, Anxiety F41.9 [facility] [address] [facility] [id number] [address] [place] [address] May, Dysuria R30.0 [facility] [address] [facility] [id number] [address] [place] [address] May, Strain of right shoulder, scherer bsequent encounter S46.911D and Anxiety F41.9 [place] [address] [address] [facility] [id number] [address] [place] [address] Apr, [facility] [employer] [address] [place] [id number] Apr, Strain of right shoulder, subsequent enc ounter S46.911D [place] [address] [facility] [id number] [address] [place] [address] 14 Apr, 2019 Strain of right shoulder, scherer bsequent encounter S46.911D and Anxiety F41.9 Via [facility] [address] [place] [id number] Apr, Type 2 diabetes mellitus without complic ation, without long-term current use of insulin E11.9 and Neurogenic bladder N31.9 [facility] [address] [place] [id number] Apr, Strain of right shoulder, subsequent enc ounter S46.911D ; History of GI bleed Z87.19 ; Neurogenic bladder N31.9 and Reactive depression F32.9 [place] [address] [facility] [id number] [address] [place] [address] Apr, Acute pain of left shoulder M25.512 [place] [address] [facility] [id number] [address] [place] [address] Apr, [place] [address] [facility] [id number] [address] [place] [address] Apr, Anxiety F41.9 and Other operations specialist 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 Via [facility] [address] [place] [id number] March, Gastrointestinal hemorrhage associated w ith acute gastritis K29.01 [place] [address] [facility] [id number] [address] [place] [address] March, Via [facility] [address] [place] [id number] March, Bronchitis J40 [facility] [address] [id number] [address] [place] [address] March, Cough R05 [facility] [address] [id number] [address] [place] [address] March, Other chronic pain G89.29 [facility] [address] [id number] [address] [place] [address] March, Anxiety F41.9 [facility] [address] [id number] [address] [place] [address] March, [facility] [address] [id number] [address] [place] [address] Feb, Other chronic pain G89.29 [facility] [address] [id number] [address] [place] [address] Feb, Anxiety F41.9 [facility] [address] [id number] [address] [place] [address] Feb, Other chronic pain G89.29 [facility] [address] [place] [id number] Feb, Neurogenic bladder N31.9 and Suprapubic catheter Z93.59 [facility] [address] [id number] [address] [place] [address] Jan, Anxiety F41.9 [facility] [address] [id number] [address] [place] [address] Dec, Anxiety F41.9 [facility] [address] [id number] [address] [place] [address] Dec, Other chronic pain G89.29 an d Anxiety F41.9 [facility] [address] [id number] [address] [place] [address] Dec, [facility] [address] [place] [id number] Dec, Neurogenic bladder N31.9 and Suprapubic catheter Z93.59 [facility] [address] [id number] [address] [place] [address] Nov, Other chronic pain G89.29 an d Anxiety F41.9 [facility] [address] [id number] [address] [place] [address] Nov, Via [employer] [address] [place] [id number] Nov, Suprapubic catheter Z93.59 [facility] [address] [id number] [address] [place] [address] Oct, Other chronic pain G89.29 an d Anxiety F41.9 [facility] [address] [id number] [address] [place] [address] Oct, [facility] [address] [id number] [address] [place] [address] Oct, Suprapubic catheter Z93.59 [facility] [address] [id number] [address] [place] [address] Oct, Via [email or web address] [address] [place] [id number] Oct, [facility] [address] [id number] [address] [place] [address] Oct, Anxiety F41.9 [facility] [address] [id number] [address] [place] [address] Oct, Anxiety F41.9 Via [email or web address] [facility] [address] [place] [id number] Oct, Other chronic pain G89.29 [facility] [address] [id number] [address] [place] [address] Sep, Other chronic pain G89.29 [facility] [employer] [address] [place] [id number] Sep, Suprapubic catheter Z93.59 and Cervicalg ia M54.2 [facility] [address] [id number] [address] [place] [address] Sep, [facility] [address] [id number] [address] [place] [address] Sep, [facility] [address] [id number] [address] [place] [address] Sep, Via [email or web address] [address] [place] [id number] Aug, Cystitis N30.90 [facility] [address] [id number] [address] [place] [address] Aug, [facility] [address] [id number] [address] [place] [address] Aug, Other chronic pain G89.29 [facility] [address] [id number] [address] [place] [address] Aug, Via [employer] [address] [place] [id number] Aug, Encounter for suprapubic catheter care Z 43.5 [facility] [address] [id number] [address] [place] [address] Jul, Via [email or web address] [address] [place] [id number] Jul, [facility] [address] [id number] [address] [place] [address] Jul, Other chronic pain G89.29 [facility] [address] [id number] [address] [place] [address] Jul, [facility] [address] [id number] [address] [place] [address] Jul, Via [email or web address] [address] [place] [id number] Jun, Postmenopausal atrophic vaginitis N95.2 [facility] [address] [id number] [address] [place] [address] Jun, Other chronic pain G89.29 [facility] [address] [id number] [address] [place] [address] Jun, Via [employer] [address] [place] [id number] May, Anxiety F41.9 ; Type 2 diabetes mellitus without complication, without long-term current use of insulin E11.9 ; Hypertension I10 ; Low back pain M54.5 ; Paroxysmal atrial fibrillation I48.0 and 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 [facility] [address] [id number] [address] [place] [address] May, Other chronic pain G89.29 Via [facility] [address] [place] [id number] May, Low back pain M54.5 [place] [address] [id number] [address] [place] [address] May, [place] [address] [id number] [address] [place] [address] Apr, Other chronic pain G89.29 [facility] [address] [id number] [address] [place] [address] Apr, [facility] [address] [id number] [address] [place] [address] Apr, Via [employer] [address] [place] [id number] Apr, Closed compression fracture of L3 lumbar vertebra with routine healing, subsequent encounter S32.030D [facility] [employer] [facility] [address] [place] [id number] 14 Apr, 2018 Low back pain M54.5 [facility] [employer] [facility] [address] [place] [id number] Apr, Coccydynia M53.3 [facility] [address] [id number] [address] [place] [address] March, [facility] [address] [id number] [address] [place] [address] March, Other chronic pain G89.29 [facility] [address] [id number] [address] [place] [address] March, [facility] [address] [facility] [id number] [address] [place] [address] March, [facility] [address] [facility] [id number] [address] [place] [address] Feb, [facility] [address] [id number] [address] [place] [address] Feb, Other chronic pain G89.29 [facility] [address] [place] [id number] Feb, Other chronic pain G89.29 and Anxiety F4 1.9 [facility] [address] [facility] [id number] [address] [place] [address] Feb, [facility] [address] [facility] [id number] [address] [place] [address] Jan, [facility] [address] [facility] [id number] [address] [place] [address] Jan, [facility] [address] [facility] [id number] [address] [place] [address] Jan, [facility] [address] [facility] [id number] [address] [place] [address] Jan, [facility] [address] [facility] [id number] [address] [place] [address] Dec, [facility] [address] [place] [id number] Dec, Peripheral vascular disease I73.9 ; 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 ; Other chronic pain G89.29 ; Anxiety F41.9 ; Reactive depression F32.9 ; Insomnia G47.00 and Type 2 diabetes mellitus without complication, without long-term current use of insulin E11.9 [facility] [address] [id number] [place] [address] Nov, [facility] [address] [id number] [place] [id number] Nov, Anxiety F41.9 [facility] [address] [id number] [address] [place] [address] Nov, [facility] [address] [id number] [place] [id number] Nov, Anxiety F41.9 [facility] [address] [place] [id number] Nov, Status post surgery Z98.890 ; Confused R 41.0 ; Anxiety F41.9 and Other chronic pain G89.29 [facility] [address] [id number] [place] [id number] Nov, Other chronic pain G89.29 [facility] [address] [facility] [id number] [address] [place] [address] Oct, [facility] [address] [id number] [place] [id number] Oct, Other chronic pain G89.29 [facility] [address] [id number] [address] [place] [address] Oct, Anxiety F41.9 [facility] [address] [id number] [place] [id number] Sep, Other chronic pain G89.29 [facility] [address] [id number] [place] [id number] Sep, [facility] [address] [place] [id number] Aug, Dysuria R30.0 and Anxiety F41.9 [facility] [address] [id number] [address] [place] [address] Aug, [facility] [address] [id number] [place] [id number] Aug, Other chronic pain G89.29 [facility] [address] [id number] [address] [place] [address] Jul, Other chronic pain G89.29 [facility] [address] [id number] [place] [id number] Jun, [facility] [address] [id number] [place] [facility] [place] [place] [id number] Jun, Other chronic pain G89.29 [facility] [address] [facility] [id number] [address] [place] [address] Jun, [facility] [address] [id number] [address] [place] [address] May, Other chronic pain G89.29 [facility] [address] [id number] [address] [place] [address] Apr, Other chronic pain G89.29 [facility] [employer] [facility] [employer] [address] [place] [id number] Apr, Reactive depression F32.9 and Pharyngeal dysphagia R13.13 [facility] [address] [facility] [id number] [address] [place] [address] Apr, Urinary tract infection with out hematuria, site unspecified N39.0 [facility] [address] [facility] [id number] [address] [place] [address] March, Other chronic pain G89.29 [facility] [address] [facility] [id number] [address] [place] [address] Feb, Other chronic pain G89.29 [facility] [address] [id number] [address] [place] [address] Feb, [facility] [address] [id number] [place] [id number] Feb, [facility] [employer] [address] [place] [id number] Feb, Dysuria R30.0 and Ventral hernia without obstruction or gangrene K43.9 [facility] [address] [facility] [id number] [address] [place] [address] Jan, Other chronic pain G89.29 [facility] [id number] [place] [id number] Dec, Other chronic pain G89.29 [facility] [address] [id number] [address] [place] [address] Nov, Other chronic pain G89.29 [facility] [address] [place] [id number] Nov, Lymphadenitis I88.9 [facility] [address] [id number] [address] [place] [address] Nov, Other chronic pain G89.29 [facility] [address] [id number] [address] [place] [address] Nov, [facility] [id number] [place] [id number] Nov, Other chronic pain G89.29 [facility] [address] [place] [id number] Oct, Low back pain M54.5 ; Hypertension I10 a nd Type 2 diabetes mellitus without complication, without long-term current use of insulin E11.9 [facility] [address] [id number] [address] [place] [address] Oct, [facility] [address] [id number] [address] [place] [address] Oct, [facility] [address] [id number] [address] [place] [address] Oct, [facility] [address] [id number] [address] [place] [address] Oct, [facility] [address] [id number] [address] [place] [address] Sep, [facility] [address] [id number] [address] [place] [address] Sep, [facility] [address] [id number] [address] [place] [address] 10 Aug, 2016 Other chronic pain G89.29 [facility] [address] [id number] [address] [place] [address] Jul, [facility] [address] [id number] [address] [place] [address] Jul, [facility] [address] [id number] [address] [place] [address] Jul, [facility] [address] [id number] [address] [place] [address] Jun, [facility] [address] [id number] [address] [place] [address] Jun, [facility] [employer] [facility] [address] [place] [id number] Jun, Low back pain M54.5 ; Other chronic pain G89.29 and Coronary artery disease I25.10 [facility] [address] [id number] [address] [place] [address] Jun, [facility] [address] [id number] [address] [place] [address] May, [facility] [address] [id number] [address] [place] [address] May, [facility] [address] [id number] [address] [place] [address] May, Other chronic pain G89.29 [facility] [address] [id number] [address] [place] [address] May, [facility] [address] [id number] [address] [place] [address] Apr, [facility] [address] [id number] [address] [place] [address] 17 Apr, 2016 Acute cystitis without hemat uria N30.00 [facility] [address] [id number] [address] [place] [address] 16 Apr, 2016 Acute cystitis without hemat uria N30.00 ; Coronary artery disease I25.10 ; Low back pain M54.5 and Other chronic pain G89.29 [facility] [address] [id number] [address] [place] [address] Apr, Other chronic pain G89.29 [facility] [address] [id number] [address] [place] [address] March, Other chronic pain G89.29 [facility] [address] [id number] [address] [place] [address] Feb, [facility] [address] [id number] [address] [place] [address] Feb, Arthritis M19.90 [facility] [address] [id number] [address] [place] [address] Feb, [facility] [address] [id number] [address] [place] [address] Jan, [facility] [address] [id number] [address] [place] [address] Jan, [facility] [address] [id number] [address] [place] [address] Jan, Other chronic pain G89.29 [facility] [address] [id number] [address] [place] [address] Jan, Hypertension I10 ; Coronary artery disease I25.10 and Insomnia G47.00 [facility] [address] [id number] [address] [place] [address] Jan, [facility] [address] [id number] [address] [place] [address] 29 Dec, 2015 Right hip pain M25.551 [facility] [address] [id number] [address] [place] [address] Dec, [facility] [address] [facility] [id number] [address] [place] [address] Dec, [facility] [address] [id number] [address] [place] [address] Dec, [facility] [address] [facility] [id number] [address] [place] [address] Dec, Other chronic pain G89.29 [facility] [address] [id number] [address] [place] [address] Dec, [facility] [address] [id number] [address] [place] [address] Nov, [facility] [address] [facility] [id number] [address] [place] [address] Nov, Other chronic pain G89.29 [facility] [address] [facility] [id number] [address] [place] [address] Nov, Right hip pain M25.551 and C oronary artery disease I25.10 [facility] [address] [id number] [address] [place] [address] Nov, Other chronic pain G89.29 [facility] [address] [id number] [address] [place] [address] Oct, [facility] [address] [facility] [id number] [address] [place] [address] Oct, [facility] [address] [facility] [id number] [address] [place] [address] Sep, [facility] [address] [facility] [id number] [address] [place] [address] Sep, [facility] [address] [facility] [id number] [address] [place] [address] Aug, [facility] [address] [facility] [id number] [address] [place] [id number] 15 Aug, 2015 Hypertension I10 ; Coronary artery disease I25.10 and Arthritis M19.90 [facility] [address] [id number] [address] [place] [address] Jun, [facility] [address] [id number] [address] [place] [address] Jun, Essential hypertension, jayson gn 401.1 ; Other chronic pain 338.29 and Chronic airway obstruction, not elsewhere classified [address] [facility] [place] [address] [id number] [address] [place] [address], [place] [address] Jun, [facility] [place] [address] [id number] [address] [place] [address] Jun, [facility] [address] [id number] [address] [place] [address], [place] [address] Jun, [facility] [address] [id number] [address] [place] [address] May, [facility] [address] [id number] [address] [place] [id number] May, [facility] [address] [id number] [address] [place] [id number] Apr, [facility] [address] [id number] [address] [place] [id number] Apr, [facility] [address] [id number] [address] [place] [id number] Apr, [facility] [address] [id number] [address] [place] [id number] March, [facility] [address] [id number] [address] [place] [id number] March, [facility] [address] [id number] [address] [place] [id number] March, [facility] [address] [id number] [address] [place] [phone] March, [facility] [address] [id number] [address] [place] [id number] March, Sialadenitis 527.2 [facility] [address] [id number] [address] [place] [address], [place] [address] Feb, [facility] [address] [id number] [address] [place] [address], [place] [address] Feb, [facility] [address] [id number] [address] [place] [address], [place] [address] Feb, [facility] [address] [id number] [address] [place] [address], [place] [address] Feb, [facility] [address] [id number] [address] [place] [address], [place] [address] Feb, [facility] [address] [id number] [address] [place] [address], [place] [address] Jan, [facility] [address] [id number] [address] [place] [address], [place] [address] Jan, [facility] [address] [id number] [address] [place] [address], [place] [address] Jan, [facility] [address] [id number] [address] [place] [address], [place] [address] Jan, [facility] [address] [id number] [address] [place] [address], [place] [address] Jan, [facility] [address] [id number] [address] [place] [address], [place] [address] Jan, [facility] [address] [id number] [address] [place] [address] Dec, [facility] [address] [id number] [address] [place] [address], [place] [address] Dec, [facility] [address] [id number] [address] [place] [address], [place] [address] Dec, [facility] [address] [id number] [address] [place] [address], [place] [address] Dec, [facility] [address] [id number] [address] [place] [address] [place] [address] Dec, [facility] [address] [id number] [address] [place] [address], [place] [address] Dec, [facility] [address] [id number] [address] [place] [address], [place] [address] Nov, [facility] [address] [id number] [address] [place] [address], [place] [address] Nov, [facility] [address] [id number] [address] [place] [address], [place] [address] Nov, [facility] [address] [id number] [address] [place] [address], [place] [address] Nov, [facility] [address] [id number] [address] [place] [address], [place] [address] Nov, [facility] [address] [id number] [address] [place] [address], [place] [address] Nov, [facility] [address] [id number] [address] [place] [address], [place] [address] Nov, [facility] [address] [id number] [address] [place] [address], [place] [address] Nov, [facility] [address] [id number] [address] [place] [address], [place] [address] Nov, [facility] [address] [id number] [address] [place] [address], [place] [address] Nov, [facility] [address] [id number] [address] [place] [address], [place] [address] Nov, [facility] [address] [id number] [address] [place] [address], [place] [address] Nov, [facility] [address] [id number] [address] [place] [address], [place] [address] Nov, [facility] [address] [id number] [address] [place] [address] Nov, [facility] [address] [id number] [address] [place] [address], [place] [address] Oct, [facility] [address] [id number] [address] [place] [address], [place] [address] Oct, [facility] [address] [id number] [address] [place] [address], [place] [address] Oct, [facility] [address] [id number] [address] [place] [address], [place] [address] Oct, [facility] [address] [id number] [address] [place] [address], [place] [address] Oct, [facility] [address] [id number] [address] [place] [address], [place] [address] Oct, [facility] [address] [id number] [address] [place] [address], [place] [address] Oct, [facility] [address] [id number] [address] [place] [address], [place] [address] Oct, [facility] [address] [id number] [address] [place] [address], [place] [address] Oct, [facility] [address] [id number] [address] [place] [address], [place] [address] Sep, [facility] [address] [id number] [address] [place] [address], [place] [address] Sep, [facility] [address] [id number] [address] [place] [address], [place] [address] Sep, [facility] [address] [id number] [address] [place] [address], [place] [address] Sep, [facility] [address] [id number] [address] [place] [address], [place] [address] Sep, [facility] [address] [id number] [address] [place] [address], [place] [address] Sep, [facility] [address] [id number] [address] [place] [address], [place] [address] Sep, [facility] [address] [id number] [address] [place] [address], [place] [address] Sep, [facility] [address] [id number] [address] [place] [address], [place] [address] Sep, [facility] [address] [id number] [address] [place] [address], [place] [address] Sep, [facility] [address] [id number] [address] [place] [address] Sep, [facility] [address] [id number] [address] [place] [address], [place] [address] Sep, [facility] [address] [id number] [address] [place] [address] Aug, [facility] [address] [id number] [address] [place] [address], [place] [address] Aug, [facility] [address] [id number] [address] [place] [address] Aug, [facility] [address] [id number] [address] [place] [address], [place] [address] Aug, [facility] [address] [id number] [address] [place] [address], [place] [address] Aug, [facility] [address] [id number] [address] [place] [address] Aug, [facility] [address] [id number] [address] [place] [address] Aug, [facility] [address] [id number] [address] [place] [address], [place] [address] Aug, [facility] [address] [id number] [address] [place] [address], [place] [address] 30 Jul, 2014 [facility] [address] [id number] [address] [place] [address], [place] [address] 30 Jul, 2014 [facility] [address] [id number] [facility] [place] [address] 30 Jul, 2013 [facility] [address] [id number] [facility] [place] [address] 30 Jul, 2013 [facility] [address] [id number] [facility] [place] [address] 25 Jul, 2013 [facility] [address] [id number] [address] [place] [address], [place] [address] 25 Jul, 2013 [facility] [address] [id number] [address] [place] [address], [place] [address] 15 Jul, 2013 [facility] [address] [id number] [address] [place] [address], [place] [address] 15 Jul, 2014 [facility] [address] [id number] [address] [place] [address], [place] [address] Jul, [facility] [address] [id number] [address] [place] [address], [place] [address] Jul, [facility] [address] [id number] [address] [place] [address], [place] [address] Jun, [facility] [address] [id number] [address] [place] [address], [place] [address] Jun, [facility] [address] [id number] [address] [place] [address], [place] [address] Jun, [facility] [address] [id number] [address] [place] [address], [place] [address] Jun, [facility] [address] [id number] [address] [place] [address], [place] [address] Jun, [facility] [address] [id number] [address] [place] [address], [place] [address] Jun, [facility] [address] [id number] [address] [place] [address], [place] [address] Jun, [facility] [address] [id number] [address] [place] [address], [place] [address] Jun, [facility] [address] [id number] [address] [place] [address], [place] [address] Jun, [facility] [address] [id number] [address] [place] [address], [place] [address] Jun, [facility] [address] [id number] [address] [place] [address], [place] [address] Jun, [facility] [address] [id number] [address] [place] [address], [place] [address] Jun, [facility] [address] [id number] [address] [place] [address], [place] [address] Jun, [facility] [address] [id number] [address] [place] [address], [place] [address] Jun, [facility] [address] [id number] [address] [place] [address], [place] [address] Jun, [facility] [address] [id number] [address] [place] [address], [place] [address] Jun, [facility] [address] [id number] [address] [place] [address], [place] [address] Jun, [facility] [address] [id number] [address] [place] [address], [place] [address] Jun, [facility] [address] [id number] [address] [place] [address], [place] [address] Jun, [facility] [address] [id number] [address] [place] [address], [place] [address] Jun, [facility] [address] [id number] [address] [place] [address], [place] [address] Jun, [facility] [address] [id number] [address] [place] [address], [place] [address] Jun, [facility] [address] [id number] [address] [place] [address], [place] [address] May, [facility] [address] [id number] [address] [place] [address], [place] [address] May, [facility] [address] [id number] [facility] [place] [address] May, [facility] [address] [id number] [address] [place] [address], [place] [address] May, [facility] [address] [id number] [address] [place] [address], [place] [address] May, [facility] [address] [id number] [address] [place] [address], [place] [address] May, [facility] [address] [id number] [address] [place] [address], [place] [address] May, [facility] [address] [id number] [address] [place] [address], [place] [address] May, [facility] [address] [id number] [address] [place] [address], [place] [address] May, [facility] [address] [id number] [address] [place] [address], [place] [address] May, [facility] [address] [id number] [address] [place] [address], [place] [address] May, [facility] [address] [id number] [address] [place] [address], [place] [address] May, [facility] [address] [id number] [address] [place] [address], [place] [address] May, [facility] [address] [id number] [address] [place] [address], [place] [address] Apr, [facility] [address] [id number] [address] [place] [address], [place] [address] Apr, [facility] [address] [id number] [address] [place] [address], [place] [address] Apr, [facility] [address] [id number] [address] [place] [address], [place] [address] Apr, [facility] [address] [id number] [facility] [place] [address] Apr, [facility] [address] [id number] [facility] [place] [address] Apr, [facility] [address] [id number] [facility] [place] [address] Apr, [facility] [address] [id number] [facility] [place] [address] Apr, [facility] [address] [id number] [facility] [place] [address] Apr, [facility] [address] [id number] [facility] [place] [address] March, [facility] [address] [id number] [address] [place] [address], [place] [address] March, [facility] [address] [id number] [address] [place] [address], [place] [address] March, [facility] [address] [id number] [address] [place] [address], [place] [address] March, [facility] [address] [id number] [address] [place] [address], [place] [address] March, [facility] [address] [id number] [address] [place] [address], [place] [address] March, [facility] [address] [id number] [address] [place] [address], [place] [address] March, [facility] [address] [id number] [address] [place] [address], [place] [address] March, [facility] [address] [id number] [address] [place] [address], [place] [address] March, [facility] [address] [id number] [facility] [place] [address] March, [facility] [address] [id number] [address] [place] [address], [place] [address] March, [facility] [address] [id number] [facility] [place] [address] March, [facility] [address] [id number] [address] [place] [address], [place] [address] March, [facility] [address] [id number] [address] [place] [address], [place] [address] March, [facility] [address] [id number] [address] [place] [address], [place] [address] March, [facility] [address] [id number] [address] [place] [address], [place] [address] March, [facility] [address] [id number] [address] [place] [address], [place] [address] March, [facility] [address] [id number] [address] [place] [address], [place] [address] March, [facility] [address] [id number] [address] [place] [address], [place] [address] March, [facility] [address] [id number] [address] [place] [address], [place] [address] March, [facility] [address] [id number] [address] [place] [address], [place] [address] Feb, [facility] [address] [id number] [address] [place] [address], [place] [address] Feb, [facility] [address] [id number] [address] [place] [address], [place] [address] Feb, [facility] [address] [id number] [address] [place] [address], [place] [address] Feb, [facility] [address] [id number] [address] [place] [address], [place] [address] Feb, [facility] [address] [id number] [address] [place] [address], [place] [address] Feb, [facility] [address] [id number] [facility] [place] [address] 11 Feb, 2014 [facility] [address] [id number] [address] [place] [address], [place] [address] Feb, [facility] [address] [id number] [facility] [place] [address] Jan, [facility] [address] [id number] [address] [place] [address], [place] [address] Jan, [facility] [address] [id number] [address] [place] [address], [place] [address] Jan, [facility] [address] [id number] [address] [place] [address], [place] [address] Jan, [facility] [address] [id number] [address] [place] [address], [place] [address] Jan, [facility] [address] [id number] [address] [place] [address], [place] [address] Jan, [facility] [address] [id number] [address] [place] [address], [place] [address] Jan, [facility] [address] [id number] [address] [place] [address], [place] [address] Jan, [facility] [address] [id number] [address] [place] [address], [place] [address] Jan, [facility] [address] [id number] [address] [place] [address], [place] [address] Jan, [facility] [address] [id number] [address] [place] [address], [place] [address] Dec, [facility] [address] [id number] [address] [place] [address], [place] [address] Dec, [facility] [address] [id number] [address] [place] [address], [place] [address] Dec, [facility] [address] [id number] [address] [place] [address], [place] [address] 2013 [facility] [address] [id number] [facility] [place] [address] 2013 [facility] [address] [id number] [address] [place] [address], [place] [address] Dec, [facility] [address] [id number] [facility] [place] [address] Dec, [facility] [address] [id number] [address] [place] [address], [place] [address] Dec, [facility] [address] [id number] [address] [place] [address], [place] [address] Nov, [facility] [address] [id number] [address] [place] [address], [place] [address] Nov, [facility] [address] [id number] [address] [place] [address], [place] [address] Nov, [facility] [address] [id number] [address] [place] [address], [place] [address] Nov, [facility] [address] [id number] [address] [place] [address], [place] [address] Nov, [facility] [address] [id number] [address] [place] [address], [place] [address] Nov, [facility] [address] [id number] [address] [place] [address], [place] [address] Nov, [facility] [address] [id number] [address] [place] [address], [place] [address] Nov, [facility] [address] [id number] [address] [place] [address], [place] [address] Nov, [facility] [address] [id number] [address] [place] [address], [place] [address] Nov, [facility] [address] [id number] [address] [place] [address], [place] [address] Nov, [facility] [address] [id number] [address] [place] [address], [place] [address] 15 Nov, 2013 [facility] [address] [id number] [address] [place] [address], [place] [address] 15 Nov, 2013 [facility] [address] [id number] [address] [place] [address], [place] [address] 30 Oct, 2013 [facility] [address] [id number] [address] [place] [address], [place] [address] 30 Oct, 2013 [facility] [address] [id number] [address] [place] [address], [place] [address] Oct, [facility] [address] [id number] [address] [place] [address], [place] [address] Oct, [facility] [address] [id number] [address] [place] [address], [place] [address] Oct, [facility] [address] [id number] [address] [place] [address], [place] [address] Oct, [facility] [address] [id number] [address] [place] [address], [place] [address] 18 Oct, 2013 [facility] [address] [id number] [address] [place] [address], [place] [address] 18 Oct, 2013 [facility] [address] [id number] [address] [place] [address], [place] [address] Oct, [facility] [address] [id number] [address] [place] [address], [place] [address] 17 Oct, 2013 [facility] [address] [id number] [address] [place] [address], [place] [address] Oct, [facility] [address] [id number] [address] [place] [address], [place] [address] Oct, [facility] [address] [id number] [address] [place] [address], [place] [address] Oct, [facility] [address] [id number] [address] [place] [address], [place] [address] Oct, [facility] [address] [id number] [address] [place] [address], [place] [address] 14 Sep, 2013 [facility] [address] [id number] [address] [place] [address], [place] [address] Sep, [facility] [address] [id number] [address] [place] [address], [place] [address] 05 Sep, 2013 [facility] [address] [id number] [address] [place] [address], [place] [address] Sep, [facility] [address] [id number] [address] [place] [address], [place] [address] Sep, [facility] [address] [id number] [address] [place] [address], [place] [address] Sep, [facility] [address] [id number] [address] [place] [address], [place] [address] Sep, [facility] [address] [id number] [address] [place] [address], [place] [address] Sep, [facility] [address] [id number] [address] [place] [address], [place] [address] Sep, [facility] [address] [id number] [address] [place] [address], [place] [address] Sep, [facility] [address] [id number] [address] [place] [address], [place] [address] Aug, [facility] [address] [id number] [address] [place] [address], [place] [address] Aug, [facility] [address] [id number] [address] [place] [address], [place] [address] Aug, [facility] [address] [id number] [address] [place] [address], [place] [address] Aug, [facility] [address] [id number] [address] [place] [address], [place] [address] Aug, [facility] [address] [id number] [address] [place] [address] 23 Aug, 2013 [facility] [address] [id number] [address] [place] [address], [place] [address] 23 Aug, 2013 [facility] [address] [id number] [address] [place] [address], [place] [address] 23 Aug, 2013 [facility] [address] [id number] [address] [place] [address], [place] [address] 22 Aug, 2013 [facility] [address] [id number] [address] [place] [address] 22 Aug, 2012 [facility] [address] [id number] [address] [place] [address], [place] [address] 18 Aug, 2013 [facility] [address] [id number] [address] [place] [address] 18 Aug, 2013 [facility] [address] [id number] [address] [place] [address], [place] [address] 18 Aug, 2013 [facility] [address] [id number] [address] [place] [address] 18 Aug, 2013 [facility] [address] [id number] [address] [place] [address], [place] [address] 17 Aug, 2013 [facility] [address] [id number] [address] [place] [address] 14 Aug, 2013 [facility] [address] [id number] [address] [place] [address] 14 Aug, 2013 [facility] [address] [id number] [address] [place] [address] 01 Aug, 2013 [facility] [address] [id number] [address] [place] [address], [place] [address] 20 Jul, 2012 [facility] [address] [id number] [address] [place] [address], [place] [address] 19 Jul, 2012 [facility] [address] [id number] [address] [place] [address] 18 Jul, 2012 [facility] [address] [id number] [facility] [place] [address] Jul, [facility] [address] [id number] [address] [place] [address], [place] [address] Jul, [facility] [address] [id number] [address] [place] [address], [place] [address] Jun, [facility] [address] [id number] [address] [place] [address], [place] [address] Jun, [facility] [address] [id number] [address] [place] [address], [place] [address] Jun, [facility] [address] [id number] [address] [place] [address], [place] [address] Jun, [facility] [address] [id number] [address] [place] [address], [place] [address] Jun, [facility] [address] [id number] [address] [place] [address], [place] [address] Jun, [facility] [address] [id number] [address] [place] [address], [place] [address] Jun, [facility] [address] [id number] [address] [place] [address], [place] [address] Jun, [facility] [address] [id number] [address] [place] [address], [place] [address] Jun, [facility] [address] [id number] [address] [place] [address], [place] [address] Jun, [facility] [address] [id number] [address] [place] [address], [place] [address] May, [facility] [address] [id number] [address] [place] [address], [place] [address] May, [facility] [address] [id number] [address] [place] [address], [place] [address] May, [facility] [address] [id number] [address] [place] [address], [place] [address] May, [facility] [address] [id number] [address] [place] [address], [place] [address] May, [facility] [address] [id number] [address] [place] [address], [place] [address] May, [facility] [address] [id number] [address] [place] [address], [place] [address] May, [facility] [address] [id number] [address] [place] [address], [place] [address] May, [facility] [address] [id number] [address] [place] [address], [place] [address] May, [facility] [address] [id number] [address] [place] [address], [place] [address] Apr, [facility] [address] [id number] [address] [place] [address], [place] [address] Apr, [facility] [address] [id number] [address] [place] [address], [place] [address] Apr, [facility] [address] [id number] [address] [place] [address], [place] [address] Apr, [facility] [address] [id number] [address] [place] [address], [place] [address] Apr, [facility] [address] [id number] [address] [place] [address], [place] [address] Apr, [facility] [address] [id number] [address] [place] [address] Apr, [facility] [address] [id number] [address] [place] [address], [place] [address] March, [facility] [address] [id number] [address] [place] [address], [place] [address] Feb, [facility] [address] [id number] [address] [place] [address] Feb, [facility] [address] [id number] [address] [place] [address], [place] [address] 12 Feb, 2013 [facility] [address] [id number] [address] [place] [address], [place] [address] 28 Jan, 2013 [facility] [address] [id number] [address] [place] [address], [place] [address] 21 Jan, 2013 [facility] [address] [id number] [address] [place] [address], [place] [address] 19 Jan, 2013 [facility] [address] [id number] [address] [place] [address], [place] [address] 14 Jan, 2013 [facility] [address] [id number] [address] [place] [address], [place] [address] 12 Jan, 2013 [facility] [address] [id number] [address] [place] [address], [place] [address] 08 Jan, 2013 [facility] [address] [id number] [address] [place] [address], [place] [address] 07 Jan, 2013 [facility] [address] [id number] [address] [place] [address], [place] [address] 04 Jan, 2013 [facility] [address] [id number] [address] [place] [address], [place] [address] 28 Dec, 2012 [facility] [address] [id number] [address] [place] [address], [place] [address] 25 Dec, 2012 [facility] [address] [id number] [address] [place] [address], [place] [address] 13 Dec, 2012 [facility] [address] [id number] [address] [place] [address], [place] [address] 11 Dec, 2012 [facility] [address] [id number] [address] [place] [address], [place] [address] 07 Dec, 2012 [facility] [address] [id number] [address] [place] [address], [place] [address] 06 Dec, 2012 [facility] [address] [id number] [address] [place] [address], [place] [address] 05 Dec, 2012 [facility] [address] [id number] [address] [place] [address], [place] [address] Nov, [facility] [address] [id number] [address] [place] [address], [place] [address] 24 Nov, 2012 [facility] [address] [id number] [address] [place] [address], [place] [address] Nov, [facility] [address] [id number] [address] [place] [address], [place] [address] Nov, [facility] [address] [id number] [address] [place] [address], [place] [address] Nov, [facility] [address] [id number] [address] [place] [address], [place] [address] Nov, [facility] [address] [id number] [address] [place] [address], [place] [address] Nov, [facility] [address] [id number] [address] [place] [address], [place] [address] Oct, [facility] [address] [id number] [address] [place] [address], [place] [address] Oct, [facility] [address] [id number] [address] [place] [address], [place] [address] Oct, [facility] [address] [id number] [address] [place] [address], [place] [address] Oct, [facility] [address] [id number] [address] [place] [address], [place] [address] Oct, [facility] [address] [id number] [address] [place] [address], [place] [address] Oct, [facility] [address] [id number] [address] [place] [address], [place] [address] Oct, [facility] [address] [id number] [address] [place] [address], [place] [address] Oct, [facility] [address] [id number] [address] [place] [address] Oct, [facility] [address] [id number] [address] [place] [address], [place] [address] Oct, [facility] [address] [id number] [address] [place] [address] Oct, [facility] [address] [id number] [address] [place] [address], [place] [address] Oct, [facility] [address] [id number] [address] [place] [address] Sep, [facility] [address] [id number] [address] [place] [address], [place] [address] Sep, [facility] [address] [id number] [address] [place] [address], [place] [address] Sep, [facility] [address] [id number] [address] [place] [address] Sep, [facility] [address] [id number] [address] [place] [address] Sep, [facility] [address] [id number] [address] [place] [address] Sep, [facility] [address] [id number] [address] [place] [address] Sep, [facility] [address] [id number] [address] [place] [address] Sep, [facility] [address] [id number] [address] [place] [address] Sep, [facility] [address] [id number] [address] [place] [address] Sep, [facility] [address] [id number] [address] [place] [address] Sep, [facility] [address] [id number] [address] [place] [address], [place] [address] Aug, [facility] [address] [id number] [address] [place] [address], [place] [address] Aug, [facility] [address] [id number] [address] [place] [address], [place] [address] Aug, [facility] [address] [id number] [address] [place] [address], [place] [address] Aug, [facility] [address] [id number] [address] [place] [address], [place] [address] Aug, [facility] [address] [id number] [address] [place] [address], [place] [address] Aug, [facility] [address] [id number] [address] [place] [address], [place] [address] Aug, [facility] [address] [id number] [address] [place] [address], [place] [address] Aug, [facility] [address] [id number] [address] [place] [address], [place] [address] Aug, [facility] [address] [id number] [address] [place] [address], [place] [address] Aug, [facility] [address] [id number] [address] [place] [address], [place] [address] 22 Jul, 2012 [facility] [address] [id number] [address] [place] [address], [place] [address] 20 Jul, 2012 [facility] [address] [id number] [address] [place] [address], [place] [address] 10 Jul, 2012 [facility] [address] [id number] [address] [place] [address], [place] [address] 06 Jul, 2012 [facility] [address] [id number] [address] [place] [address], [place] [address] 30 Jun, 2012 [facility] [address] [id number] [address] [place] [address], [place] [address] Jun, [facility] [address] [id number] [address] [place] [address], [place] [address] Jun, [facility] [address] [id number] [facility] [place] [address] Jun, [facility] [address] [id number] [address] [place] [address], [place] [address] Jun, [facility] [address] [id number] [address] [place] [address], [place] [address] Jun, [facility] [address] [id number] [address] [place] [address], [place] [address] Jun, [facility] [address] [id number] [address] [place] [address], [place] [address] May, [facility] [address] [id number] [address] [place] [address], [place] [address] May, [facility] [address] [id number] [address] [place] [address], [place] [address] May, [facility] [address] [id number] [address] [place] [address], [place] [address] May, [facility] [address] [id number] [address] [place] [address], [place] [address] May, [facility] [address] [id number] [address] [place] [address], [place] [address] Apr, [facility] [address] [id number] [address] [place] [address], [place] [address] Apr, [facility] [address] [id number] [address] [place] [address], [place] [address] Apr, [facility] [address] [id number] [address] [place] [address], [place] [address] Apr, [facility] [address] [id number] [address] [place] [address], [place] [address] Apr, [facility] [address] [id number] [address] [place] [address], [place] [address] March, [facility] [address] [id number] [address] [place] [address], [place] [address] March, [facility] [address] [id number] [address] [place] [address], [place] [address] March, [facility] [address] [id number] [address] [place] [address], [place] [address] March, [facility] [address] [id number] [address] [place] [address], [place] [address] March, [facility] [address] [id number] [address] [place] [address], [place] [address] March, [facility] [address] [id number] [address] [place] [address], [place] [address] March, [facility] [address] [id number] [address] [place] [address], [place] [address] March, [facility] [address] [id number] [address] [place] [address], [place] [address] March, [facility] [address] [id number] [address] [place] [address], [place] [address] March, [facility] [address] [id number] [address] [place] [address], [place] [address] 30 Feb, 2012 [facility] [address] [id number] [address] [place] [address], [place] [address] 27 Feb, 2012 [facility] [address] [id number] [address] [place] [address], [place] [address] 26 Feb, 2012 [facility] [address] [id number] [address] [place] [address], [place] [address] 19 Feb, 2012 [facility] [address] [id number] [address] [place] [address], [place] [address] 17 Feb, 2012 [facility] [address] [id number] [address] [place] [address], [place] [address] Feb, [facility] [address] [id number] [address] [place] [address], [place] [address] 12 Feb, 2012 [facility] [address] [id number] [address] [place] [address], [place] [address] Feb, [facility] [address] [id number] [address] [place] [address], [place] [address] Feb, [facility] [address] [id number] [address] [place] [address], [place] [address] Jan, [facility] [address] [id number] [address] [place] [address], [place] [address] Jan, [facility] [address] [id number] [address] [place] [address], [place] [address] Jan, [facility] [address] [id number] [address] [place] [address], [place] [address] Jan, [facility] [address] [id number] [address] [place] [address], [place] [address] Dec, [facility] [address] [id number] [address] [place] [address], [place] [address] Dec, [facility] [address] [id number] [address] [place] [address], [place] [address] Nov, [facility] [address] [id number] [address] [place] [address], [place] [address] Nov, [facility] [address] [id number] [address] [place] [address], [place] [address] Nov, [facility] [address] [id number] [address] [place] [address], [place] [address] Nov, [facility] [address] [id number] [address] [place] [address], [place] [address] Nov, [facility] [address] [id number] [address] [place] [address], [place] [address] Oct, [facility] [address] [id number] [address] [place] [address], [place] [address] Oct, [facility] [address] [id number] [address] [address] Oct, [facility] [address] [id number] [address] [place] [address] Oct, [facility] [address] [id number] [address] [place] [address] Oct, [facility] [address] [id number] [address] [place] [address] Oct, [facility] [address] [id number] [address] [place] [address] Oct, [facility] [address] [id number] [address] [place] [address] Oct, [facility] [address] [facility] [id number] [address] [place] [address] Sep, IMMUNIZATIONS No Known Immunizations SOCIAL HISTORY Never Assessed REASON FOR VISIT PLAN OF CARE VITAL SIGNS MEDICATIONS Unknown Medications RESULTS No Results PROCEDURES No Known procedures INSTRUCTIONS MEDICATIONS ADMINISTERED No Known Medications MEDICAL (GENERAL) HISTORY Type Description Date Medical History aortic abdominal aneurysm moderate 04/06 18 Medical History illiac aneurysm 03/2018 Surgical History No Surgical history information Hospitalization History [facility]- Urosepsis, ab d pain and fever, discharged 11/27/2017 11/26/2017 Hospitalization History [facility]- Went Unrepsonsive, Hit head 2017 Hospitalization History [facility]- Back Pain 05/05/201 8
--- OUTSIDE RECORDS SUMMARY | 2020-06-18 15:17 | XMS REPORT ---
Author Author Loi JOHNSONlamar PRYORHANY [facility] Address [address] [place] [address] Care Team Providers Care Value Stream Leader Name Role Phone ELIZABETHGWENY Unavailable PROBLEMS Type Condition ICD9-CM Code QXO76-UD Code Onset Dates Condition S tatus SNOMED Code Problem Coronary artery disease I25.10 Active 70817312 Problem Hypertension I10 Active 4863783 3 Problem Other chronic pain G89.29 Active 8 8417216 Problem Hyperlipidemia E78.5 Active 33478 004 Problem Type 2 diabetes mellitus wit hout complication, without long-term current use of insulin E11.9 Active 160963829 Problem Low back pain M54.5 Active 717086 009 Problem Pharyngeal dysphagia R13.13 Active [id number] Problem Anxiety F41.9 Active 42391903 Problem Peripheral vascular disease I73.9 Ac tive 031718350 Problem Suprapubic catheter Z93.59 Active 016843815 Problem Reactive depression F32.9 Active 78576250 Problem Neurogenic bladder N31.9 Active 3 80846688 Problem Ventral hernia without obstruction or gangrene K43 .9 Active 213257911 Problem Insomnia G47.00 Active 053570616 Problem Paroxysmal atrial fibrillation I48.0 Active 145256480 Problem Postmenopausal atrophic vaginitis N95.2 Active 13038648 Problem Encounter for suprapubic catheter care Z43.5 Active 442694811 ALLERGIES No Information ENCOUNTERS Encounter Location Date Diagnosis Via [facility] [address] [place] [id number] Jun, [facility] [address] [facility] [id number] [address] [place] [address] May, Dysuria R30.0 [facility] [address] [facility] [id number] [address] [place] [address] May, Strain of right shoulder, scherer bsequent encounter S46.911D and Anxiety F41.9 [place] [address] [id number] [address] [place] [address] 27 Apr, 2019 Via [facility] [id number] outdoors [address] [place] [id number] Apr, Strain of right shoulder, subsequent enc ounter S46.911D [place] [address] [id number] [address] [place] [phone] 14 Apr, 2019 Strain of right shoulder, scherer bsequent encounter S46.911D and Anxiety F41.9 Via [facility] [id number] outdoors [address] [place] [id number] 13 Apr, 2019 Type 2 diabetes mellitus without complic ation, without long-term current use of insulin E11.9 and Neurogenic bladder N31.9 [facility] [address] [place] [id number] Apr, Strain of right shoulder, subsequent enc ounter S46.911D ; History of GI bleed Z87.19 ; Neurogenic bladder N31.9 and Reactive depression F32.9 [place] [address] [id number] [address] [place] [address] 10 Apr, 2019 Acute pain of left shoulder M25.512 [place] [address] [id number] [address] [place] [phone] 07 Apr, 2019 [place] [address] [id number] [address] [place] [address] Apr, Anxiety F41.9 and 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 Via [facility] [id number] outdoors [address] [place] [id number] March, Gastrointestinal hemorrhage associated w ith acute gastritis K29.01 [place] [address] [id number] [address] [place] [address] March, Via [facility] [id number] outdoors [address] [place] [id number] March, Bronchitis J40 [place] [address] [id number] [address] [place] [address] March, Cough R05 [facility] [address] [id number] [address] [place] [address] March, Other chronic pain G89.29 [facility] [address] [id number] [address] [place] [phone] March, Anxiety F41.9 [facility] [address] [id number] [address] [place] [address] March, [facility] [address] [id number] [address] [place] [address] Feb, Other chronic pain G89.29 [facility] [address] [id number] [address] [place] [address] Feb, Anxiety F41.9 [facility] [address] [id number] [address] [place] [address] Feb, Other chronic pain G89.29 Via [facility] [address] [place] [id number] Feb, Neurogenic bladder N31.9 and Suprapubic catheter Z93.59 [facility] [address] [id number] [address] [place] [phone] Jan, Anxiety F41.9 [facility] [address] [id number] [address] [place] [id number] Dec, Anxiety F41.9 [facility] [address] [id number] [address] [place] [address] Dec, Other chronic pain G89.29 an d Anxiety F41.9 [facility] [address] [id number] [address] [place] [address] Dec, Via [employer] [address] [place] [id number] Dec, Neurogenic bladder N31.9 and Suprapubic catheter Z93.59 [facility] [address] [id number] [address] [place] [address] Nov, Other chronic pain G89.29 an d Anxiety F41.9 [facility] [address] [id number] [address] [place] [address] Nov, Via [employer] [address] [place] [id number] Nov, Suprapubic catheter Z93.59 [facility] [address] [id number] [address] [place] [address] Oct, Other chronic pain G89.29 an d Anxiety F41.9 [facility] [address] [id number] [address] [place] [address] Oct, [facility] [address] [id number] [address] [place] [address] Oct, Suprapubic catheter Z93.59 [facility] [address] [id number] [address] [place] [address] Oct, Via [employer] [address] [place] [id number] Oct, [facility] [address] [id number] [address] [place] [address] Oct, Anxiety F41.9 [facility] [address] [id number] [address] [place] [address] Oct, Anxiety F41.9 [facility] [address] [place] [id number] Oct, Other chronic pain G89.29 [facility] [address] [id number] [address] [place] [address] Sep, Other chronic pain G89.29 Via [employer] [address] [place] [id number] Sep, Suprapubic catheter Z93.59 and Cervicalg ia M54.2 [facility] [address] [id number] [address] [place] [address] Sep, [facility] [address] [id number] [address] [place] [address] Sep, [facility] [address] [id number] [address] [place] [address] Sep, Via [employer] [address] [place] [id number] Aug, Cystitis N30.90 [facility] [address] [id number] [address] [place] [address] Aug, [facility] [address] [id number] [address] [place] [address] Aug, Other chronic pain G89.29 [facility] [address] [id number] [address] [place] [address] Aug, Via [facility] [address] [place] [id number] Aug, Encounter for suprapubic catheter care Z 43.5 [facility] [address] [id number] [address] [place] [address] Jul, Via [employer] [address] [place] [id number] Jul, [facility] [address] [id number] [address] [place] [address] Jul, Other chronic pain G89.29 [facility] [address] [id number] [address] [place] [address] Jul, [facility] [address] [id number] [address] [place] [address] Jul, Via [employer] [address] [place] [id number] Jun, Postmenopausal atrophic vaginitis N95.2 [facility] [address] [id number] [address] [place] [address] Jun, Other chronic pain G89.29 [facility] [address] [id number] [address] [place] [address] Jun, Via [facility] [address] [place] [id number] May, Anxiety F41.9 ; Type 2 diabetes mellitus without complication, without long-term current use of insulin E11.9 ; Hypertension I10 ; Low back pain M54.5 ; Paroxysmal atrial fibrillation I48.0 and 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 [facility] [address] [id number] [address] [place] [address] May, Other chronic pain G89.29 [facility] [address] [place] [id number] May, Low back pain M54.5 [facility] [address] [id number] [address] [place] [address] May, [facility] [address] [id number] [address] [place] [address] Apr, Other chronic pain G89.29 [facility] [address] [id number] [address] [place] [address] Apr, [facility] [address] [id number] [address] [place] [address] Apr, Via [facility] [address] [place] [id number] Apr, Closed compression fracture of L3 lumbar vertebra with routine healing, subsequent encounter S32.030D [facility] [address] [place] [id number] Apr, Low back pain M54.5 [facility] [address] [place] [id number] Apr, Coccydynia M53.3 [facility] [address] [id number] [address] [place] [address] March, [facility] [address] [id number] [address] [place] [address] March, Other chronic pain G89.29 [facility] [address] [id number] [address] [place] [address] March, [facility] [address] [id number] [address] [place] [address] March, [facility] [address] [id number] [address] [place] [address] Feb, [facility] [address] [id number] [address] [place] [address] Feb, Other chronic pain G89.29 Via [facility] [address] [place] [id number] Feb, Other chronic pain G89.29 and Anxiety F4 1.9 [facility] [address] [id number] [address] [place] [address] Feb, [facility] [address] [id number] [address] [place] [address] Jan, [facility] [address] [id number] [address] [place] [address] Jan, [facility] [address] [id number] [address] [place] [address] Jan, [facility] [address] [id number] [address] [place] [phone] Jan, [facility] [address] [id number] [address] [place] [address] Dec, Via [facility] [address] [place] [id number] Dec, Peripheral vascular disease I73.9 ; 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 [place] [address] [id number] [address] Nov, [facility] [address] [id number] [place] [id number] Nov, Anxiety F41.9 [facility] [address] [id number] [address] [place] [address] Nov, [facility] [address] [id number] [place] [id number] Nov, Anxiety F41.9 Via [facility] [address] [place] [id number] Nov, Status post surgery Z98.890 ; Confused R 41.0 ; Anxiety F41.9 and Other chronic pain G89.29 [facility] [address] [id number] [place] [id number] Nov, Other chronic pain G89.29 [facility] [address] [id number] [address] [place] [address] Oct, [facility] [address] [id number] [place] [id number] Oct, Other chronic pain G89.29 [facility] [address] [id number] [address] [place] [address] Oct, Anxiety F41.9 [facility] [address] [id number] [place] [id number] Sep, Other chronic pain G89.29 [facility] [address] [id number] [place] [id number] Sep, Via [facility] [address] [place] [id number] Aug, Dysuria R30.0 and Anxiety F41.9 [facility] [address] [id number] [address] [place] [address] Aug, [facility] [address] [id number] [place] [id number] Aug, Other chronic pain G89.29 [facility] [address] [id number] [address] [place] [address] Jul, Other chronic pain G89.29 [facility] [address] [id number] [place] [id number] Jun, [facility] [address] [id number] [place] [id number] Jun, Other chronic pain G89.29 [facility] [address] [id number] [address] [place] [phone] Jun, [facility] [address] [facility] [id number] [address] [place] [address] May, Other chronic pain G89.29 [facility] [address] [id number] [address] [place] [address] Apr, Other chronic pain G89.29 [facility] [address] [place] [id number] Apr, Reactive depression F32.9 and Pharyngeal dysphagia R13.13 [facility] [address] [facility] [id number] [address] [place] [phone] Apr, Urinary tract infection with out hematuria, site unspecified N39.0 [facility] [address] [facility] [id number] [address] [place] [address] March, Other chronic pain G89.29 [facility] [address] [id number] [address] [place] [address] Feb, Other chronic pain G89.29 [facility] [address] [facility] [id number] [address] [place] [address] Feb, [facility] [address] [id number] [place] [id number] Feb, [facility] [address] [place] [id number] Feb, Dysuria R30.0 and Ventral hernia without obstruction or gangrene K43.9 [facility] [address] [id number] [address] [place] [address] Jan, Other chronic pain G89.29 [facility] [id number] [place] [id number] Dec, Other chronic pain G89.29 [facility] [address] [id number] [address] [place] [address] Nov, Other chronic pain G89.29 [facility] [address] [place] [id number] Nov, Lymphadenitis I88.9 [facility] [address] [id number] [address] [place] [address] Nov, Other chronic pain G89.29 [facility] [address] [id number] [address] [place] [address] Nov, [facility] [id number] [place] [id number] Nov, Other chronic pain G89.29 [facility] [address] [place] [id number] Oct, Low back pain M54.5 ; Hypertension I10 a nd Type 2 diabetes mellitus without complication, without long-term current use of insulin E11.9 [facility] [address] [id number] [address] [place] [address] Oct, [facility] [address] [id number] [address] [place] [address] Oct, [facility] [address] [id number] [address] [place] [address] Oct, [facility] [address] [id number] [address] [place] [address] Oct, [facility] [address] [id number] [address] [place] [address] Sep, [facility] [address] [id number] [address] [place] [address] Sep, [facility] [address] [id number] [address] [place] [address] Aug, Other chronic pain G89.29 [facility] [address] [id number] [address] [place] [address] Jul, [facility] [address] [id number] [address] [place] [address] Jul, [facility] [address] [id number] [address] [place] [phone] Jul, [facility] [address] [id number] [address] [place] [address] Jun, [facility] [address] [id number] [address] [place] [address] Jun, [facility] [address] [place] [id number] Jun, Low back pain M54.5 ; Other chronic pain G89.29 and Coronary artery disease I25.10 [facility] [address] [id number] [address] [place] [address] Jun, [facility] [address] [id number] [address] [place] [phone] May, [facility] [address] [id number] [address] [place] [address] May, [facility] [address] [id number] [address] [place] [address] May, Other chronic pain G89.29 [facility] [address] [id number] [address] [place] [address] May, [facility] [address] [id number] [address] [place] [address] Apr, [facility] [address] [id number] [address] [place] [address] Apr, Acute cystitis without hemat uria N30.00 [facility] [address] [id number] [address] [place] [phone] 16 Apr, 2016 Acute cystitis without hemat uria N30.00 ; Coronary artery disease I25.10 ; Low back pain M54.5 and Other chronic pain G89.29 [facility] [address] [id number] [address] [place] [address] Apr, Other chronic pain G89.29 [facility] [address] [id number] [address] [place] [address] March, Other chronic pain G89.29 [facility] [address] [id number] [address] [place] [address] 18 Feb, 2016 [facility] [address] [id number] [address] [place] [address] Feb, Arthritis M19.90 [facility] [address] [id number] [address] [place] [address] Feb, [facility] [address] [facility] [id number] [address] [place] [address] Jan, [facility] [address] [id number] [address] [place] [address] Jan, [facility] [address] [id number] [address] [place] [address] Jan, Other chronic pain G89.29 [facility] [address] [facility] [id number] [address] [place] [address] Jan, Hypertension I10 ; Coronary artery disease I25.10 and Insomnia G47.00 [facility] [address] [id number] [address] [place] [address] Jan, [facility] [address] [id number] [address] [place] [address] Dec, Right hip pain M25.551 [facility] [address] [id number] [address] [place] [address] Dec, [facility] [address] [facility] [id number] [address] [place] [address] Dec, [facility] [address] [facility] [id number] [address] [place] [address] Dec, [facility] [address] [id number] [address] [place] [address] Dec, Other chronic pain G89.29 [facility] [address] [id number] [address] [place] [address] Dec, [facility] [address] [id number] [address] [place] [address] Nov, [facility] [address] [id number] [address] [place] [address] Nov, Other chronic pain G89.29 [facility] [address] [id number] [address] [place] [address] Nov, Right hip pain M25.551 and C oronary artery disease I25.10 [facility] [address] [id number] [address] [place] [address] Nov, Other chronic pain G89.29 [facility] [address] [id number] [address] [place] [address] Oct, [facility] [address] [id number] [address] [place] [address] Oct, [facility] [address] [facility] [id number] [address] [place] [address] Sep, [facility] [address] [facility] [id number] [address] [place] [address] Sep, [facility] [address] [id number] [address] [place] [phone] Aug, [facility] [address] [facility] [id number] [address] [place] [address] Aug, Hypertension I10 ; Coronary artery disease I25.10 and Arthritis M19.90 [facility] [address] [id number] [address] [place] [address] Jun, [facility] [address] [id number] [address] [place] [address] Jun, Essential hypertension, jayson gn 401.1 ; Other chronic pain 338.29 and Chronic airway obstruction, not elsewhere classified 496 [facility] [address] [id number] [address] [place] [address], [place] [address] Jun, [facility] [address] [id number] [address] [place] [address], [place] [address] Jun, [facility] [address] [id number] [address] [place] [address] Jun, [facility] [address] [id number] [address] [place] [address] May, [facility] [address] [id number] [address] [place] [phone] May, [facility] [address] [id number] [address] [place] [address] Apr, [facility] [address] [id number] [address] [place] [address] Apr, [facility] [address] [id number] [address] [place] [id number] Apr, [facility] [address] [id number] [address] [place] [id number] March, [facility] [address] [id number] [address] [place] [id number] March, [facility] [address] [id number] [address] [place] [id number] March, [facility] [address] [id number] [address] [place] [phone] March, [facility] [address] [id number] [address] [place] [id number] March, Sialadenitis 527.2 [facility] [address] [id number] [address] [place] [id number] Feb, [facility] [address] [id number] [address] [place] [address], [place] [id number] Feb, [facility] [address] [id number] [address] [place] [address], [place] [id number] Feb, [facility] [address] [id number] [address] [place] [address], [place] [id number] Feb, [facility] [address] [id number] [address] [place] [address], [place] [id number] Feb, [facility] [address] [id number] [address] [place] [address], [place] [id number] Jan, [facility] [address] [id number] [address] [place] [place] [address], [place] [address] Jan, [facility] [address] [id number] [address] [place] [address], [place] [address] Jan, [facility] [address] [id number] [address] [place] [address], [place] [address] Jan, [facility] [address] [id number] [address] [place] [address], [place] [address] Jan, [facility] [address] [id number] [address] [place] [address], [place] [address] Jan, [facility] [address] [id number] [address] [place] [address], [place] [address] Dec, [facility] [address] [id number] [address] [place] [address], [place] [address] Dec, 2014 [facility] [address] [id number] [address] [place] [address], [place] [address] Dec, 2014 [facility] [address] [id number] [address] [place] [address], [place] [address] Dec, 2014 [facility] [address] [id number] [address] [place] [address], [place] [address] Dec, [facility] [address] [id number] [address] [place] [address], [place] [address] Dec, [facility] [address] [id number] [address] [place] [address], [place] [address] Nov, [facility] [address] [id number] [address] [place] [address], [place] [address] Nov, [facility] [address] [id number] [address] [place] [address], [place] [address] Nov, [facility] [address] [id number] [address] [place] [address], [place] [address] Nov, [facility] [address] [id number] [address] [place] [address], [place] [address] Nov, [facility] [address] [id number] [address] [place] [address], [place] [address] Nov, [facility] [address] [id number] [address] [place] [address], [place] [address] Nov, [facility] [address] [id number] [address] [place] [address], [place] [address] Nov, [facility] [address] [id number] [address] [place] [address], [place] [address] Nov, [facility] [address] [id number] [address] [place] [address], [place] [address] Nov, [facility] [address] [id number] [address] [place] [address], [place] [address] Nov, [facility] [address] [id number] [address] [place] [address], [place] [address] Nov, [facility] [address] [id number] [address] [place] [address], [place] [address] Nov, [facility] [address] [id number] [address] [place] [address], [place] [address] Nov, [facility] [address] [id number] [address] [place] [address], [place] [address] Oct, [facility] [address] [id number] [address] [place] [address], [place] [address] Oct, [facility] [address] [id number] [address] [place] [address], [place] [address] Oct, [facility] [address] [id number] [address] [place] [address], [place] [address] Oct, [facility] [address] [id number] [address] [place] [address], [place] [address] Oct, [facility] [address] [id number] [address] [place] [address], [place] [address] Oct, [facility] [address] [id number] [address] [place] [address], [place] [address] Oct, [facility] [address] [id number] [address] [place] [address], [place] [address] Oct, [facility] [address] [id number] [address] [place] [address], [place] [address] Oct, [facility] [address] [id number] [address] [place] [address], [place] [address] Sep, [facility] [address] [id number] [address] [place] [address], [place] [address] Sep, [facility] [address] [id number] [address] [place] [address], [place] [address] Sep, [facility] [address] [id number] [address] [place] [address], [place] [address] Sep, [facility] [address] [id number] [address] [place] [address], [place] [address] Sep, [facility] [address] [id number] [address] [place] [address], [place] [address] Sep, [facility] [address] [id number] [address] [place] [address], [place] [address] Sep, [facility] [address] [id number] [address] [place] [address], [place] [address] Sep, [facility] [address] [id number] [address] [place] [address], [place] [address] Sep, [facility] [address] [id number] [address] [place] [address], [place] [address] Sep, [facility] [address] [id number] [address] [place] [address], [place] [address] Sep, [facility] [address] [id number] [address] [place] [address], [place] [address] Sep, [facility] [address] [id number] [address] [place] [address], [place] [address] Aug, [facility] [address] [id number] [address] [place] [address], [place] [address] Aug, [facility] [address] [id number] [address] [place] [address], [place] [address] Aug, [facility] [address] [id number] [address] [place] [address], [place] [address] Aug, [facility] [address] [id number] [address] [place] [address], [place] [address] Aug, [facility] [address] [id number] [address] [place] [address], [place] [address] Aug, [facility] [address] [id number] [address] [place] [address], [place] [address] Aug, [facility] [address] [id number] [address] [place] [address] Aug, [facility] [address] [id number] [address] [place] [address], [place] [address] 30 Jul, 2014 [facility] [address] [id number] [address] [place] [address], [place] [address] 30 Jul, 2014 [facility] [address] [id number] [address] [place] [address], [place] [address] 30 Jul, 2014 [facility] [address] [id number] [facility] [place] [address] 30 Jul, 2013 [facility] [address] [id number] [facility] [place] [address] 25 Jul, 2013 [facility] [address] [id number] [facility] [place] [address] 25 Jul, 2013 [facility] [address] [id number] [facility] [place] [address] 15 Jul, 2013 [facility] [address] [id number] [address] [place] [address], [place] [address] 15 Jul, 2013 [facility] [address] [id number] [address] [place] [address], [place] [address] 11 Jul, 2014 [facility] [address] [id number] [address] [place] [address], [place] [address] Jul, [facility] [address] [id number] [address] [place] [address], [place] [address] Jun, [facility] [address] [id number] [address] [place] [address], [place] [address] Jun, [facility] [address] [id number] [address] [place] [address], [place] [address] Jun, [facility] [address] [id number] [address] [place] [address], [place] [address] Jun, [facility] [address] [id number] [address] [place] [address], [place] [address] Jun, [facility] [address] [id number] [address] [place] [address], [place] [address] Jun, [facility] [address] [id number] [address] [place] [address], [place] [address] Jun, [facility] [address] [id number] [address] [place] [address], [place] [address] Jun, [facility] [address] [id number] [address] [place] [address], [place] [address] Jun, [facility] [address] [id number] [facility] [place] [address] Jun, [facility] [address] [id number] [address] [place] [address], [place] [address] Jun, [facility] [address] [id number] [facility] [place] [address] Jun, [facility] [address] [id number] [address] [place] [address], [place] [address] Jun, [facility] [address] [id number] [address] [place] [address], [place] [address] Jun, [facility] [address] [id number] [address] [place] [address], [place] [address] Jun, [facility] [address] [id number] [address] [place] [address], [place] [address] Jun, [facility] [address] [id number] [address] [place] [address], [place] [address] Jun, [facility] [address] [id number] [address] [place] [address], [place] [address] Jun, [facility] [address] [id number] [address] [place] [address], [place] [address] Jun, [facility] [address] [id number] [address] [place] [address], [place] [address] Jun, [facility] [address] [id number] [address] [place] [address], [place] [address] Jun, [facility] [address] [id number] [address] [place] [address], [place] [address] Jun, [facility] [address] [id number] [address] [place] [address], [place] [address] May, [facility] [address] [id number] [address] [place] [address], [place] [address] May, [facility] [address] [id number] [address] [place] [address], [place] [address] May, [facility] [address] [id number] [facility] [place] [address] May, [facility] [address] [id number] [facility] [place] [address] May, [facility] [address] [id number] [facility] [place] [address] May, 2013 [facility] [address] [id number] [address] [place] [address], [place] [address] May, 2013 [facility] [address] [id number] [address] [place] [address], [place] [address] May, [facility] [address] [id number] [address] [place] [address], [place] [address] May, 2013 [facility] [address] [id number] [address] [place] [address], [place] [address] May, [facility] [address] [id number] [address] [place] [address], [place] [address] May, [facility] [address] [id number] [address] [place] [address], [place] [address] May, [facility] [address] [id number] [address] [place] [address], [place] [address] May, [facility] [address] [id number] [address] [place] [address], [place] [address] Apr, [facility] [address] [id number] [address] [place] [address], [place] [address] Apr, [facility] [address] [id number] [address] [place] [address], [place] [address] Apr, [facility] [address] [id number] [address] [place] [address], [place] [address] Apr, [facility] [address] [id number] [address] [place] [address], [place] [address] Apr, [facility] [address] [id number] [facility] [place] [address] Apr, [facility] [address] [id number] [facility] [place] [address] Apr, [facility] [address] [id number] [facility] [place] [address] Apr, [facility] [address] [id number] [address] [place] [address], [place] [address] Apr, [facility] [address] [id number] [address] [place] [address], [place] [address] March, [facility] [address] [id number] [address] [place] [address], [place] [address] March, [facility] [address] [id number] [address] [place] [address], [place] [address] March, [facility] [address] [id number] [address] [place] [address], [place] [address] March, [facility] [address] [id number] [address] [place] [address], [place] [address] March, [facility] [address] [id number] [address] [place] [address], [place] [address] March, [facility] [address] [id number] [address] [place] [address], [place] [address] March, [facility] [address] [id number] [address] [place] [address], [place] [address] March, [facility] [address] [id number] [address] [place] [address], [place] [address] March, [facility] [address] [id number] [address] [place] [address], [place] [address] March, [facility] [address] [id number] [address] [place] [address], [place] [address] March, [facility] [address] [id number] [address] [place] [address], [place] [address] March, [facility] [address] [id number] [address] [place] [address], [place] [address] March, [facility] [address] [id number] [address] [place] [address], [place] [address] March, [facility] [address] [id number] [address] [place] [address], [place] [address] March, [facility] [address] [id number] [address] [place] [address], [place] [address] March, [facility] [address] [id number] [address] [place] [address], [place] [address] March, [facility] [address] [id number] [address] [place] [address], [place] [address] March, [facility] [address] [id number] [address] [place] [address], [place] [address] March, [facility] [address] [id number] [address] [place] [address], [place] [address] March, [facility] [address] [id number] [address] [place] [address], [place] [address] Feb, [facility] [address] [id number] [address] [place] [address], [place] [address] Feb, [facility] [address] [id number] [address] [place] [address], [place] [address] Feb, [facility] [address] [id number] [address] [place] [address], [place] [address] Feb, [facility] [address] [id number] [address] [place] [address], [place] [address] Feb, [facility] [address] [id number] [address] [place] [address], [place] [address] Feb, [facility] [address] [id number] [address] [place] [address], [place] [address] Feb, [facility] [address] [id number] [facility] [place] [address] 11 Feb, 2014 [facility] [address] [id number] [facility] [place] [address] Jan, [facility] [address] [id number] [facility] [place] [address] Jan, [facility] [address] [id number] [address] [place] [address], [place] [address] Jan, [facility] [address] [id number] [address] [place] [address], [place] [address] Jan, [facility] [address] [id number] [address] [place] [address], [place] [address] Jan, [facility] [address] [id number] [address] [place] [address], [place] [address] Jan, [facility] [address] [id number] [address] [place] [address], [place] [address] Jan, [facility] [address] [id number] [address] [place] [address], [place] [address] Jan, [facility] [address] [id number] [address] [place] [address], [place] [address] Jan, [facility] [address] [id number] [address] [place] [address], [place] [address] Jan, [facility] [address] [id number] [address] [place] [address], [place] [address] Dec, [facility] [address] [id number] [address] [place] [address], [place] [address] Dec, [facility] [address] [id number] [address] [place] [address], [place] [address] Dec, [facility] [address] [id number] [address] [place] [address], [place] [address] 2013 [facility] [address] [id number] [address] [place] [address] [address] 2013 [facility] [address] [id number] [facility] [place] [address] Dec, [facility] [address] [id number] [address] [place] [address], [place] [address] Dec, [facility] [address] [id number] [address] [place] [address], [place] [address] Dec, [facility] [address] [id number] [address] [place] [address], [place] [address] Nov, [facility] [address] [id number] [address] [place] [address], [place] [address] Nov, [facility] [address] [id number] [address] [place] [address], [place] [address] Nov, [facility] [address] [id number] [address] [place] [address], [place] [address] Nov, [facility] [address] [id number] [address] [place] [address], [place] [address] Nov, [facility] [address] [id number] [address] [place] [address], [place] [address] Nov, [facility] [address] [id number] [address] [place] [address], [place] [address] Nov, [facility] [address] [id number] [address] [place] [address], [place] [address] Nov, [facility] [place] [facility] [address] [id number] [address] [place] [address], [place] [address] Nov, [facility] [address] [id number] [address] [place] [address], [place] [address] Nov, [facility] [place] [facility] [address] [id number] [address] [place] [address], [place] [address] Nov, [facility] [place] [facility] [address] [id number] [address] [place] [address], [place] [address] Nov, [facility] [address] [id number] [address] [place] [address] 15 Nov, 2013 [facility] [address] [id number] [address] [place] [address], [place] [address] 30 Oct, 2013 [facility] [address] [id number] [address] [place] [address], [place] [address] 30 Oct, 2013 [facility] [address] [id number] [address] [place] [address], [place] [address] Oct, [facility] [address] [id number] [address] [place] [address], [place] [address] Oct, [facility] [address] [id number] [address] [place] [address], [place] [address] Oct, [facility] [address] [id number] [address] [place] [address], [place] [address] Oct, [facility] [address] [id number] [address] [place] [address], [place] [address] Oct, [facility] [address] [id number] [address] [place] [address], [place] [address] 18 Oct, 2013 [facility] [address] [id number] [address] [place] [address], [place] [address] 17 Oct, 2013 [facility] [address] [id number] [address] [place] [address], [place] [address] 17 Oct, 2013 [facility] [address] [id number] [address] [place] [address], [place] [id number] 03 Oct, 2013 [facility] [address] [id number] [address] [place] [address], [place] [id number] 03 Oct, 2013 [facility] [address] [id number] [address] [place] [address], [place] [id number] 02 Oct, 2013 [facility] [address] [id number] [address] [place] [address], [place] [address] 02 Oct, 2013 [facility] [address] [id number] [address] [place] [address], [place] [address] 14 Sep, 2013 [facility] [address] [id number] [address] [place] [address], [place] [address] 14 Sep, 2013 [facility] [address] [id number] [address] [place] [address], [place] [address] 05 Sep, 2013 [facility] [address] [id number] [address] [place] [address], [place] [id number] 05 Sep, 2013 [facility] [address] [id number] [address] [place] [address], [place] [address] Sep, [facility] [address] [id number] [address] [place] [address], [place] [id number] Sep, [facility] [address] [id number] [address] [place] [address], [place] [address] Sep, [facility] [address] [id number] [address] [place] [address], [place] [address] Sep, [facility] [address] [id number] [address] [place] [address], [place] [address] Sep, [facility] [address] [id number] [address] [place] [address], [place] [address] Sep, [facility] [address] [id number] [address] [place] [id number] Aug, [facility] [address] [id number] [address] [place] [id number] Aug, [facility] [address] [id number] [address] [place] [id number] Aug, [facility] [address] [id number] [address] [place] [address], [place] [address] Aug, [facility] [address] [id number] [address] [place] [address], [place] [address] Aug, [facility] [address] [id number] [address] [place] [id number] Aug, [facility] [address] [id number] [address] [place] [id number] 23 Aug, 2013 [facility] [address] [id number] [address] [place] [address], [place] [id number] 23 Aug, 2013 [facility] [address] [id number] [address] [place] [id number] 22 Aug, 2013 [facility] [address] [id number] [address] [place] [address], [place] [address] 22 Aug, 2013 [facility] [address] [id number] [address] [place] [id number] 18 Aug, 2013 [facility] [address] [id number] [address] [place] [address], [place] [address] 18 Aug, 2013 [facility] [address] [id number] [address] [place] [id number] 18 Aug, 2013 [facility] [address] [id number] [address] [place] [id number] 18 Aug, 2013 [facility] [address] [id number] [address] [place] [address], [place] [id number] 17 Aug, 2013 [facility] [address] [id number] [address] [place] [id number] 14 Aug, 2013 [facility] [address] [id number] [address] [place] [id number] 14 Aug, 2013 [facility] [address] [id number] [address] [place] [id number] 01 Aug, 2013 [facility] [address] [id number] [address] [place] [id number] 20 Jul, 2012 [facility] [address] [id number] [address] [place] [address], [place] [address] 19 Jul, 2012 [facility] [place] [facility] [address] [id number] [address] [place] [id number] 18 Jul, 2012 [facility] [address] [id number] [address] [place] [address], [place] [id number] 11 Jul, 2012 [facility] [place] [facility] [address] [id number] [facility] [place] [address] Jul, [facility] [address] [address] [id number] [address] [place] [address], [place] [address] Jun, [facility] [address] [id number] [address] [place] [address], [place] [address] Jun, [facility] [address] [id number] [address] [place] [address], [place] [address] Jun, [facility] [address] [id number] [address] [place] [address], [place] [address] Jun, [facility] [address] [id number] [address] [place] [address], [place] [address] Jun, [facility] [address] [id number] [address] [place] [address], [place] [address] Jun, [facility] [address] [id number] [address] [place] [address], [place] [address] Jun, [facility] [address] [id number] [address] [place] [address], [place] [address] Jun, [facility] [address] [id number] [address] [place] [address], [place] [address] Jun, [facility] [address] [id number] [address] [place] [address], [place] [address] Jun, [facility] [address] [id number] [address] [place] [address], [place] [address] May, [facility] [address] [id number] [address] [place] [address], [place] [address] May, [facility] [address] [id number] [address] [place] [address], [place] [address] May, [facility] [address] [id number] [address] [place] [address], [place] [address] May, [facility] [address] [id number] [address] [place] [address], [place] [address] May, [facility] [address] [id number] [address] [place] [address], [place] [address] 16 May, 2013 [facility] [address] [id number] [address] [place] [address], [place] [address] May, [facility] [address] [id number] [address] [place] [address], [place] [address] May, [facility] [address] [id number] [address] [place] [address], [place] [address] May, [facility] [address] [id number] [address] [place] [address], [place] [address] Apr, [facility] [address] [id number] [address] [place] [address], [place] [address] Apr, [facility] [address] [id number] [address] [place] [address], [place] [address] Apr, [facility] [address] [id number] [address] [place] [address], [place] [address] Apr, [facility] [address] [id number] [address] [place] [address], [place] [address] Apr, [facility] [address] [id number] [address] [place] [address], [place] [address] Apr, [facility] [address] [id number] [address] [place] [address], [place] [address] Apr, [facility] [address] [id number] [address] [place] [address], [place] [address] March, [facility] [address] [id number] [address] [place] [address], [place] [address] Feb, [facility] [address] [id number] [address] [place] [address], [place] [address] Feb, [facility] [address] [id number] [address] [place] [address], [place] [address] Feb, [facility] [address] [id number] [address] [place] [address], [place] [address] 28 Jan, 2013 [facility] [address] [id number] [address] [place] [address], [place] [address] 21 Jan, 2013 [facility] [address] [id number] [address] [place] [address], [place] [address] 19 Jan, 2013 [facility] [address] [id number] [address] [place] [address], [place] [address] 14 Jan, 2013 [facility] [address] [id number] [address] [place] [address], [place] [address] 12 Jan, 2013 [facility] [address] [id number] [address] [place] [address], [place] [address] 08 Jan, 2013 [facility] [address] [id number] [address] [place] [address], [place] [address] 07 Jan, 2013 [facility] [address] [id number] [address] [place] [address], [place] [address] 04 Jan, 2013 [facility] [address] [id number] [address] [place] [address], [place] [address] 28 Dec, 2012 [facility] [address] [id number] [address] [place] [address], [place] [address] 25 Dec, 2012 [facility] [address] [id number] [address] [place] [address], [place] [address] 13 Dec, 2012 [facility] [address] [id number] [address] [place] [address], [place] [address] 11 Dec, 2012 [facility] [address] [id number] [address] [place] [address], [place] [address] 07 Dec, 2012 [facility] [address] [id number] [address] [place] [address], [place] [address] 06 Dec, 2012 [facility] [address] [id number] [address] [place] [address], [place] [address] 05 Dec, 2012 [facility] [address] [id number] [address] [place] [address], [place] [address] Nov, [facility] [address] [id number] [address] [place] [address], [place] [address] Nov, [facility] [address] [id number] [address] [place] [address], [place] [address] 18 Nov, 2012 [facility] [address] [id number] [address] [place] [address], [place] [address] 15 Nov, 2012 [facility] [address] [id number] [address] [place] [address], [place] [address] Nov, [facility] [address] [id number] [address] [place] [address], [place] [address] Nov, [facility] [address] [id number] [address] [place] [address], [place] [address] Nov, [facility] [address] [id number] [address] [place] [address], [place] [address] Oct, [facility] [address] [id number] [address] [place] [address], [place] [address] Oct, [facility] [address] [id number] [address] [place] [address], [place] [address] Oct, [facility] [address] [id number] [address] [place] [address], [place] [address] Oct, [facility] [address] [id number] [address] [place] [address], [place] [address] Oct, [facility] [address] [id number] [address] [place] [address], [place] [address] 17 Oct, 2012 [facility] [address] [id number] [address] [place] [address], [place] [address] Oct, [facility] [address] [id number] [address] [place] [address], [place] [address] 07 Oct, 2012 [facility] [address] [id number] [address] [place] [address], [place] [address] 05 Oct, 2012 [facility] [address] [id number] [address] [place] [phone] Oct, [facility] [address] [id number] [address] [place] [address], [place] [address] Oct, [facility] [address] [id number] [address] [place] [address] Oct, [facility] [address] [id number] [address] [place] [address], [place] [address] Sep, [facility] [address] [id number] [address] [place] [address], [place] [address] Sep, [facility] [address] [id number] [address] [place] [address], [place] [address] Sep, [facility] [address] [id number] [address] [place] [address], [place] [address] Sep, [facility] [address] [id number] [address] [place] [phone] Sep, [facility] [address] [id number] [address] [place] [address], [place] [address] Sep, [facility] [address] [id number] [address] [place] [address], [place] [address] Sep, [facility] [address] [id number] [address] [place] [address] Sep, [facility] [address] [id number] [address] [place] [address], [place] [address] Sep, [facility] [address] [id number] [address] [place] [address] Sep, [facility] [address] [id number] [address] [place] [address] Sep, [facility] [address] [id number] [address] [place] [address], [place] [address] Aug, [facility] [address] [id number] [address] [place] [address] Aug, [facility] [address] [id number] [address] [place] [address], [place] [address] Aug, [facility] [address] [id number] [address] [place] [address], [place] [address] Aug, [facility] [address] [id number] [address] [place] [address], [place] [address] Aug, [facility] [address] [id number] [address] [place] [address], [place] [address] Aug, [facility] [address] [id number] [address] [place] [address], [place] [address] Aug, [facility] [address] [id number] [address] [place] [address], [place] [address] Aug, [facility] [address] [id number] [address] [place] [address], [place] [address] Aug, [facility] [address] [id number] [address] [place] [address], [place] [address] Aug, [facility] [address] [id number] [address] [place] [address], [place] [address] 22 Jul, 2012 [facility] [address] [id number] [address] [place] [address], [place] [address] 20 Jul, 2012 [facility] [address] [id number] [address] [place] [address], [place] [address] 10 Jul, 2012 [facility] [address] [id number] [address] [place] [address], [place] [address] 06 Jul, 2012 [facility] [address] [id number] [address] [place] [address], [place] [address] 30 Jun, 2012 [facility] [address] [id number] [address] [place] [address], [place] [address] Jun, [facility] [address] [id number] [address] [place] [address], [place] [address] 16 Jun, 2012 [facility] [address] [id number] [address] [place] [address], [place] [address] Jun, [facility] [address] [id number] [address] [place] [address], [place] [address] Jun, [facility] [address] [id number] [address] [place] [address], [place] [address] Jun, [facility] [address] [id number] [address] [place] [address], [place] [address] Jun, [facility] [address] [id number] [address] [place] [address], [place] [address] May, [facility] [address] [id number] [address] [place] [address], [place] [address] May, [facility] [address] [id number] [address] [place] [address], [place] [address] May, [facility] [address] [id number] [address] [place] [address], [place] [address] May, [facility] [address] [id number] [address] [place] [address], [place] [address] May, [facility] [address] [id number] [address] [place] [address], [place] [address] Apr, [facility] [address] [id number] [address] [place] [address], [place] [address] Apr, [facility] [address] [id number] [address] [place] [address], [place] [address] Apr, [facility] [address] [id number] [address] [place] [address], [place] [address] Apr, [facility] [address] [id number] [address] [place] [address], [place] [address] Apr, [facility] [address] [id number] [address] [place] [address], [place] [address] March, [facility] [address] [id number] [address] [place] [address], [place] [address] March, [facility] [address] [id number] [address] [place] [address], [place] [address] March, [facility] [address] [id number] [address] [place] [address], [place] [address] March, [facility] [address] [id number] [address] [place] [address], [place] [address] March, [facility] [address] [id number] [address] [place] [address], [place] [address] March, [facility] [address] [id number] [address] [place] [address], [place] [address] March, [facility] [address] [id number] [address] [place] [address], [place] [address] March, [facility] [address] [id number] [address] [place] [address], [place] [address] March, [facility] [address] [id number] [address] [place] [address], [place] [address] March, [facility] [address] [id number] [address] [place] [address], [place] [address] Feb, [facility] [address] [id number] [address] [place] [address], [place] [address] Feb, [facility] [address] [id number] [address] [place] [address], [place] [address] Feb, [facility] [address] [id number] [address] [place] [address], [place] [address] Feb, [facility] [address] [id number] [address] [place] [address], [place] [address] Feb, [facility] [address] [id number] [address] [place] [address], [place] [address] Feb, [facility] [address] [id number] [address] [place] [address], [place] [address] Feb, [facility] [address] [id number] [address] [place] [address], [place] [address] Feb, [facility] [address] [id number] [address] [place] [address], [place] [address] Feb, [facility] [address] [id number] [address] [place] [address], [place] [address] Jan, [facility] [address] [id number] [address] [place] [address], [place] [address] Jan, [facility] [address] [id number] [address] [place] [address], [place] [address] Jan, [facility] [address] [id number] [address] [place] [address], [place] [address] Jan, [facility] [address] [id number] [address] [place] [address], [place] [address] Dec, [facility] [address] [id number] [address] [place] [address], [place] [address] Dec, [facility] [address] [id number] [address] [place] [address], [place] [address] Nov, [facility] [address] [id number] [address] [place] [address], [place] [address] Nov, [facility] [address] [id number] [address] [place] [address], [place] [address] Nov, [facility] [address] [id number] [address] [place] [address], [place] [address] Nov, [facility] [address] [id number] [address] [place] [address], [place] [address] Nov, [facility] [address] [id number] [address] [place] [address], [place] [address] Oct, [facility] [address] [id number] [address] [place] [address], [place] [address] Oct, [facility] [address] [id number] [address] [place] [address], [place] [address] Oct, [facility] [address] [id number] [address] [place] [address] Oct, [facility] [address] [facility] [id number] [address] [place] [id number] Oct, [facility] [address] [facility] [id number] [address] [place] [address] Oct, [facility] [address] [facility] [id number] [address] [place] [address] Oct, [facility] [address] [facility] [id number] [address] [place] [address] Oct, [facility] [address] [facility] [id number] [address] [place] [address] Sep, IMMUNIZATIONS No Known Immunizations SOCIAL HISTORY Never Assessed REASON FOR VISIT PLAN OF CARE VITAL SIGNS MEDICATIONS Unknown Medications RESULTS No Results PROCEDURES No Known procedures INSTRUCTIONS MEDICATIONS ADMINISTERED No Known Medications MEDICAL (GENERAL) HISTORY Type Description Date Medical History 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
--- OUTSIDE RECORDS SUMMARY | 2020-06-18 15:18 | XMS REPORT ---
Author Author Loi JOHNSONlamar PRYORHANY [facility] Address [address] [place] [address] Care Team Providers Care Emissions Engineer Name Role Phone ELIZABETHGWENY Unavailable PROBLEMS Type Condition ICD9-CM Code NUL28-ZZ Code Onset Dates Condition S tatus SNOMED Code Problem Coronary artery disease I25.10 Active 70743671 Problem Hypertension I10 Active 0001376 3 Problem Other chronic pain G89.29 Active 8 9298971 Problem Hyperlipidemia E78.5 Active 16557 004 Problem Type 2 diabetes mellitus wit hout complication, without long-term current use of insulin E11.9 Active 271015466 Problem Low back pain M54.5 Active 057657 009 Problem Pharyngeal dysphagia R13.13 Active [id number] Problem Anxiety F41.9 Active 00547612 Problem Peripheral vascular disease I73.9 Ac tive 583067737 Problem Suprapubic catheter Z93.59 Active 586449362 Problem Reactive depression F32.9 Active 83049879 Problem Neurogenic bladder N31.9 Active 3 18935023 Problem Ventral hernia without obstruction or gangrene K43 .9 Active 836886022 Problem Insomnia G47.00 Active 276438614 Problem Paroxysmal atrial fibrillation I48.0 Active 995645825 Problem Postmenopausal atrophic vaginitis N95.2 Active 04029464 Problem Encounter for suprapubic catheter care Z43.5 Active [id number] ALLERGIES No Information ENCOUNTERS Encounter Location Date Diagnosis [facility] [address] [facility] [address] [place] [id number] Jun, [facility] [address] [facility] [id number] [address] [place] [address] May, Dysuria R30.0 [facility] [address] [facility] [id number] [address] [place] [phone] May, Strain of right shoulder, scherer bsequent encounter S46.911D and Anxiety F41.9 [facility] [id number] [id number] [address] [place] [phone] 27 Apr, 2019 [facility] [address] [place] [id number] Apr, Strain of right shoulder, subsequent enc ounter S46.911D [facility] [address] [id number] [address] [place] [phone] 14 Apr, 2019 Strain of right shoulder, scherer bsequent encounter S46.911D and Anxiety F41.9 [facility] [address] [place] [id number] 13 Apr, 2019 Type 2 diabetes mellitus without complic ation, without long-term current use of insulin E11.9 and Neurogenic bladder N31.9 [facility] [address] [place] [id number] Apr, Strain of right shoulder, subsequent enc ounter S46.911D ; History of GI bleed Z87.19 ; Neurogenic bladder N31.9 and Reactive depression F32.9 [place] [address] [id number] [address] [place] [id number] 10 Apr, 2019 Acute pain of left shoulder M25.512 [place] [address] [id number] [address] [place] [phone] 07 Apr, 2019 [place] [address] [id number] [address] [place] [phone] Apr, Anxiety F41.9 and Other skin diver 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 [facility] [address] [place] [id number] March, Gastrointestinal hemorrhage associated w ith acute gastritis K29.01 [place] [address] [id number] [address] [place] [phone] March, [facility] [address] [place] [id number] March, Bronchitis J40 [place] [address] [id number] [address] [place] [phone] March, Cough R05 [facility] [address] [id number] [address] [place] [id number] March, Other chronic pain G89.29 [facility] [address] [id number] [address] [place] [phone] March, Anxiety F41.9 [facility] [address] [id number] [address] [place] [phone] March, [facility] [address] [id number] [address] [place] [phone] Feb, Other chronic pain G89.29 [facility] [address] [id number] [address] [place] [phone] Feb, Anxiety F41.9 [facility] [address] [id number] [address] [place] [phone] Feb, Other chronic pain G89.29 [facility] [address] [place] [id number] Feb, Neurogenic bladder N31.9 and Suprapubic catheter Z93.59 [facility] [address] [id number] [address] [place] [id number] Jan, Anxiety F41.9 [facility] [address] [id number] [address] [place] [id number] Dec, Anxiety F41.9 [facility] [address] [id number] [address] [place] [phone] Dec, Other chronic pain G89.29 an d Anxiety F41.9 [facility] [address] [id number] [address] [place] [phone] Dec, [facility] [address] [place] [id number] Dec, Neurogenic bladder N31.9 and Suprapubic catheter Z93.59 [facility] [address] [id number] [address] [place] [id number] Nov, Other chronic pain G89.29 an d Anxiety F41.9 [facility] [address] [id number] [address] [place] [phone] Nov, Via [facility] [address] [place] [id number] Nov, Suprapubic catheter Z93.59 [facility] [address] [id number] [address] [place] [id number] Oct, Other chronic pain G89.29 an d Anxiety F41.9 [facility] [address] [id number] [address] [place] [phone] Oct, [facility] [address] [id number] [address] [place] [phone] Oct, Suprapubic catheter Z93.59 [facility] [address] [id number] [address] [place] [phone] Oct, [facility] [address] [place] [id number] Oct, [facility] [address] [id number] [address] [place] [phone] Oct, Anxiety F41.9 [facility] [address] [id number] [address] [place] [address] Oct, Anxiety F41.9 [facility] [address] [place] [id number] Oct, Other chronic pain G89.29 [facility] [address] [id number] [address] [place] [address] Sep, Other chronic pain G89.29 [facility] [address] [place] [id number] Sep, Suprapubic catheter Z93.59 and Cervicalg ia M54.2 [facility] [address] [id number] [address] [place] [phone] Sep, [facility] [address] [id number] [address] [place] [phone] Sep, [facility] [address] [id number] [address] [place] [address] Sep, [facility] [address] [place] [id number] Aug, Cystitis N30.90 [facility] [address] [id number] [address] [place] [id number] Aug, [facility] [address] [id number] [address] [place] [address] Aug, Other chronic pain G89.29 [facility] [address] [id number] [address] [place] [id number] Aug, Via [facility] [address] [place] [id number] Aug, Encounter for suprapubic catheter care Z 43.5 [facility] [address] [id number] [address] [place] [phone] Jul, [facility] [address] [place] [id number] Jul, [facility] [address] [id number] [address] [place] [id number] Jul, Other chronic pain G89.29 [facility] [address] [id number] [address] [place] [phone] Jul, [facility] [address] [id number] [address] [place] [phone] Jul, [facility] [address] [place] [id number] Jun, Postmenopausal atrophic vaginitis N95.2 [facility] [address] [id number] [address] [place] [id number] Jun, Other chronic pain G89.29 [facility] [address] [id number] [address] [place] [id number] Jun, Via [facility] [address] [place] [id number] May, Anxiety F41.9 ; Type 2 diabetes mellitus without complication, without long-term current use of insulin E11.9 ; Hypertension I10 ; Low back pain M54.5 ; Paroxysmal atrial fibrillation I48.0 and 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 [facility] [address] [id number] [address] [place] [phone] May, Other chronic pain G89.29 [facility] [address] [place] [id number] May, Low back pain M54.5 [facility] [address] [id number] [address] [place] [id number] May, [facility] [address] [id number] [address] [place] [phone] Apr, Other chronic pain G89.29 [facility] [address] [id number] [address] [place] [phone] Apr, [facility] [address] [id number] [address] [place] [id number] Apr, Via [facility] [address] [place] [id number] Apr, Closed compression fracture of L3 lumbar vertebra with routine healing, subsequent encounter S32.030D [facility] [address] [place] [id number] Apr, Low back pain M54.5 [facility] [address] [place] [id number] Apr, Coccydynia M53.3 [facility] [address] [id number] [address] [place] [phone] March, [facility] [address] [id number] [address] [place] [phone] March, Other chronic pain G89.29 [facility] [address] [id number] [address] [place] [phone] March, [facility] [address] [id number] [address] [place] [phone] March, [facility] [address] [id number] [address] [place] [phone] Feb, [facility] [address] [id number] [address] [place] [address] Feb, Other chronic pain G89.29 [facility] [address] [place] [id number] Feb, Other chronic pain G89.29 and Anxiety F4 1.9 [facility] [address] [id number] [address] [place] [phone] Feb, [facility] [address] [id number] [address] [place] [phone] Jan, [facility] [address] [id number] [address] [place] [phone] Jan, [facility] [address] [id number] [address] [place] [phone] Jan, [facility] [address] [id number] [address] [place] [phone] Jan, [facility] [address] [id number] [address] [place] [id number] Dec, [facility] [address] [place] [id number] Dec, Peripheral vascular disease I73.9 ; 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 ; Other chronic pain G89.29 ; Anxiety F41.9 ; Reactive depression F32.9 ; Insomnia G47.00 and Type 2 diabetes mellitus without complication, without long-term current use of insulin E11.9 [facility] [place] [address] [id number] [address] Nov, [facility] [address] [id number] [place] [id number] Nov, Anxiety F41.9 [facility] [address] [id number] [address] [place] [phone] Nov, [facility] [address] [id number] [place] [id number] Nov, Anxiety F41.9 [facility] [address] [place] [id number] Nov, Status post surgery Z98.890 ; Confused R 41.0 ; Anxiety F41.9 and Other chronic pain G89.29 [facility] [address] [id number] [place] [id number] Nov, Other chronic pain G89.29 [facility] [address] [id number] [address] [place] [phone] Oct, [facility] [address] [id number] [place] [id number] Oct, Other chronic pain G89.29 [facility] [address] [id number] [address] [place] [phone] Oct, Anxiety F41.9 [facility] [address] [id number] [place] [id number] Sep, Other chronic pain G89.29 [facility] [address] [id number] [place] [id number] Sep, Via [facility] [address] [place] [id number] Aug, Dysuria R30.0 and Anxiety F41.9 [facility] [address] [id number] [address] [place] [phone] Aug, [facility] [address] [id number] [place] [id number] Aug, Other chronic pain G89.29 [facility] [address] [id number] [address] [place] [id number] Jul, Other chronic pain G89.29 [facility] [address] [id number] [place] [id number] Jun, [facility] [address] [id number] [place] [id number] Jun, Other chronic pain G89.29 [facility] [address] [id number] [address] [place] [phone] Jun, [facility] [address] [facility] [id number] [address] [place] [address] May, Other chronic pain G89.29 [facility] [address] [id number] [address] [place] [phone] Apr, Other chronic pain G89.29 [facility] [address] [place] [id number] Apr, Reactive depression F32.9 and Pharyngeal dysphagia R13.13 [facility] [address] [facility] [id number] [address] [place] [id number] Apr, Urinary tract infection with out hematuria, site unspecified N39.0 [facility] [address] [facility] [id number] [address] [place] [id number] March, Other chronic pain G89.29 [facility] [address] [id number] [address] [place] [id number] Feb, Other chronic pain G89.29 [facility] [address] [facility] [id number] [address] [place] [address] Feb, [facility] [address] [id number] [place] [id number] Feb, [facility] [address] [place] [id number] Feb, Dysuria R30.0 and Ventral hernia without obstruction or gangrene K43.9 [facility] [address] [id number] [address] [place] [phone] Jan, Other chronic pain G89.29 [facility] [id number] [place] [id number] Dec, Other chronic pain G89.29 [facility] [address] [id number] [address] [place] [address] Nov, Other chronic pain G89.29 [facility] [address] [place] [id number] Nov, Lymphadenitis I88.9 [facility] [address] [id number] [address] [place] [address] Nov, Other chronic pain G89.29 [facility] [address] [id number] [address] [place] [id number] Nov, [facility] [id number] [place] [id number] Nov, Other chronic pain G89.29 [facility] [address] [place] [id number] Oct, Low back pain M54.5 ; Hypertension I10 a nd Type 2 diabetes mellitus without complication, without long-term current use of insulin E11.9 [facility] [address] [id number] [address] [place] [phone] Oct, [facility] [address] [id number] [address] [place] [phone] Oct, [facility] [address] [id number] [address] [place] [phone] Oct, [facility] [address] [id number] [address] [place] [address] Oct, [facility] [address] [id number] [address] [place] [phone] Sep, [facility] [address] [id number] [address] [place] [phone] Sep, [facility] [address] [id number] [address] [place] [address] Aug, Other chronic pain G89.29 [facility] [address] [id number] [address] [place] [address] Jul, [facility] [address] [id number] [address] [place] [address] Jul, [facility] [address] [id number] [address] [place] [id number] Jul, [facility] [address] [id number] [address] [place] [phone] Jun, [facility] [address] [id number] [address] [place] [phone] Jun, [facility] [address] [place] [id number] Jun, Low back pain M54.5 ; Other chronic pain G89.29 and Coronary artery disease I25.10 [facility] [address] [id number] [address] [place] [id number] Jun, [facility] [address] [id number] [address] [place] [phone] May, [facility] [address] [id number] [address] [place] [phone] May, [facility] [address] [id number] [address] [place] [phone] May, Other chronic pain G89.29 [facility] [address] [id number] [address] [place] [id number] May, [facility] [address] [id number] [address] [place] [id number] Apr, [facility] [address] [id number] [address] [place] [address] Apr, Acute cystitis without hemat uria N30.00 [facility] [address] [id number] [address] [place] [address] 16 Apr, 2016 Acute cystitis without hemat uria N30.00 ; Coronary artery disease I25.10 ; Low back pain M54.5 and Other chronic pain G89.29 [facility] [address] [id number] [address] [place] [address] Apr, Other chronic pain G89.29 [facility] [address] [id number] [address] [place] [address] March, Other chronic pain G89.29 [facility] [address] [id number] [address] [place] [phone] 18 Feb, 2016 [facility] [address] [id number] [address] [place] [id number] Feb, Arthritis M19.90 [facility] [address] [id number] [address] [place] [phone] Feb, [facility] [address] [facility] [id number] [address] [place] [phone] Jan, [facility] [address] [id number] [address] [place] [phone] Jan, [facility] [address] [id number] [address] [place] [phone] Jan, Other chronic pain G89.29 [facility] [address] [facility] [id number] [address] [place] [id number] Jan, Hypertension I10 ; Coronary artery disease I25.10 and Insomnia G47.00 [facility] [address] [id number] [address] [place] [address] Jan, [facility] [address] [id number] [address] [place] [phone] Dec, Right hip pain M25.551 [facility] [address] [id number] [address] [place] [id number] Dec, [facility] [address] [facility] [id number] [address] [place] [phone] Dec, [facility] [address] [facility] [id number] [address] [place] [phone] Dec, [facility] [address] [id number] [address] [place] [address] Dec, Other chronic pain G89.29 [facility] [address] [id number] [address] [place] [id number] Dec, [facility] [address] [id number] [address] [place] [phone] Nov, [facility] [address] [id number] [address] [place] [phone] Nov, Other chronic pain G89.29 [facility] [address] [id number] [address] [place] [address] Nov, Right hip pain M25.551 and C oronary artery disease I25.10 [facility] [address] [id number] [address] [place] [id number] Nov, Other chronic pain G89.29 [facility] [address] [id number] [address] [place] [phone] Oct, [facility] [address] [id number] [address] [place] [phone] Oct, [facility] [address] [facility] [id number] [address] [place] [phone] Sep, [facility] [address] [facility] [id number] [address] [place] [phone] Sep, [facility] [address] [id number] [address] [place] [phone] Aug, [facility] [address] [facility] [id number] [address] [place] [phone] Aug, Hypertension I10 ; Coronary artery disease I25.10 and Arthritis M19.90 [facility] [address] [id number] [address] [place] [id number] Jun, [facility] [address] [id number] [address] [place] [phone] Jun, Essential hypertension, jayson gn 401.1 ; Other chronic pain 338.29 and Chronic airway obstruction, not elsewhere classified 496 [facility] [address] [id number] [address] [place] [address], [place] [phone] Jun, [facility] [address] [id number] [address] [place] [address], [place] [id number] Jun, [facility] [address] [id number] [address] [place] [id number] Jun, [facility] [address] [id number] [address] [place] [phone] May, [facility] [address] [id number] [address] [place] [phone] May, [facility] [address] [id number] [address] [place] [phone] Apr, [facility] [address] [id number] [address] [place] [phone] Apr, [facility] [address] [id number] [address] [place] [phone] Apr, [facility] [address] [id number] [address] [place] [phone] March, [facility] [address] [id number] [address] [place] [phone] March, [facility] [address] [id number] [address] [place] [phone] March, [facility] [address] [id number] [address] [place] [phone] March, [facility] [address] [id number] [address] [place] [phone] March, Sialadenitis 527.2 [facility] [address] [id number] [address] [place] [id number] Feb, [facility] [address] [address] [id number] [address] [place] [address], [place] [address] Feb, [facility] [address] [id number] [address] [place] [address], [place] [address] Feb, [facility] [address] [id number] [address] [place] [address], [place] [address] Feb, [facility] [address] [id number] [address] [place] [address], [place] [address] Feb, [facility] [address] [id number] [address] [place] [address], [place] [address] Jan, [facility] [address] [id number] [address] [place] [address], [place] [address] Jan, [facility] [address] [id number] [address] [place] [address], [place] [address] Jan, [facility] [address] [id number] [address] [place] [address], [place] [address] Jan, [facility] [address] [id number] [address] [place] [address], [place] [address] Jan, [facility] [address] [id number] [address] [place] [address], [place] [address] Jan, [facility] [address] [id number] [address] [place] [address], [place] [address] Dec, [facility] [address] [id number] [address] [place] [address], [place] [address] Dec, 2014 [facility] [address] [id number] [address] [place] [address], [place] [address] Dec, 2014 [facility] [address] [id number] [address] [place] [address], [place] [address] Dec, 2014 [facility] [address] [id number] [address] [place] [address], [place] [address] Dec, [facility] [address] [id number] [address] [place] [address], [place] [address] Dec, [facility] [address] [id number] [address] [place] [address], [place] [address] Nov, [facility] [address] [id number] [address] [place] [address], [place] [address] Nov, [facility] [address] [id number] [address] [place] [address], [place] [address] Nov, [facility] [address] [id number] [address] [place] [address], [place] [address] Nov, [facility] [address] [id number] [address] [place] [address], [place] [address] Nov, [facility] [address] [id number] [address] [place] [address], [place] [address] Nov, [facility] [address] [id number] [address] [place] [address], [place] [address] Nov, [facility] [address] [id number] [address] [place] [address], [place] [address] Nov, [facility] [address] [id number] [address] [place] [address], [place] [address] Nov, [facility] [address] [id number] [address] [place] [address], [place] [address] Nov, [facility] [address] [id number] [address] [place] [address], [place] [address] Nov, [facility] [address] [id number] [address] [place] [address], [place] [address] Nov, [facility] [address] [id number] [address] [place] [address], [place] [address] Nov, [facility] [address] [id number] [address] [place] [address], [place] [address] Nov, [facility] [address] [id number] [address] [place] [address], [place] [address] Oct, [facility] [address] [id number] [address] [place] [address], [place] [address] Oct, [facility] [address] [id number] [address] [place] [address], [place] [address] Oct, [facility] [address] [id number] [address] [place] [address], [place] [address] Oct, [facility] [address] [id number] [address] [place] [address], [place] [address] Oct, [facility] [address] [id number] [address] [place] [address], [place] [address] Oct, [facility] [address] [id number] [address] [place] [address], [place] [address] Oct, [facility] [address] [id number] [address] [place] [address], [place] [address] Oct, [facility] [address] [id number] [address] [place] [address], [place] [address] Oct, [facility] [address] [id number] [address] [place] [address], [place] [address] Sep, [facility] [address] [id number] [address] [place] [address], [place] [address] Sep, [facility] [address] [id number] [address] [place] [address], [place] [address] Sep, [facility] [address] [id number] [address] [place] [address], [place] [address] Sep, [facility] [address] [id number] [address] [place] [address], [place] [address] Sep, [facility] [address] [id number] [address] [place] [address], [place] [address] Sep, [facility] [address] [id number] [address] [place] [address], [place] [address] Sep, [facility] [address] [id number] [address] [place] [address], [place] [address] Sep, [facility] [address] [id number] [address] [place] [address], [place] [address] Sep, [facility] [address] [id number] [address] [place] [address], [place] [address] Sep, [facility] [address] [id number] [address] [place] [address], [place] [address] Sep, [facility] [address] [id number] [address] [place] [address], [place] [address] Sep, [facility] [address] [id number] [address] [place] [address], [place] [address] Aug, [facility] [address] [id number] [address] [place] [address], [place] [address] Aug, [facility] [address] [id number] [address] [place] [address], [place] [address] Aug, [facility] [address] [id number] [address] [place] [address], [place] [address] Aug, [facility] [address] [id number] [address] [place] [address], [place] [address] Aug, [facility] [address] [id number] [address] [place] [address], [place] [address] Aug, [facility] [address] [id number] [address] [place] [address], [place] [address] Aug, [facility] [address] [id number] [address] [place] [address] Aug, [facility] [address] [id number] [address] [place] [address], [place] [address] 30 Jul, 2014 [facility] [address] [id number] [address] [place] [address], [place] [address] 30 Jul, 2014 [facility] [address] [id number] [address] [place] [address], [place] [address] 30 Jul, 2014 [facility] [address] [id number] [facility] [place] [address] 30 Jul, 2013 [facility] [address] [id number] [facility] [place] [address] 25 Jul, 2013 [facility] [address] [id number] [facility] [place] [address] 25 Jul, 2013 [facility] [address] [id number] [facility] [place] [address] 15 Jul, 2013 [facility] [address] [id number] [address] [place] [address], [place] [address] 15 Jul, 2013 [facility] [address] [id number] [address] [place] [address], [place] [address] 11 Jul, 2014 [facility] [address] [id number] [address] [place] [address], [place] [address] Jul, [facility] [address] [id number] [address] [place] [address], [place] [address] Jun, [facility] [address] [id number] [address] [place] [address], [place] [address] Jun, [facility] [address] [id number] [address] [place] [address], [place] [address] Jun, [facility] [address] [id number] [address] [place] [address], [place] [address] Jun, [facility] [address] [id number] [address] [place] [address], [place] [address] Jun, [facility] [address] [id number] [address] [place] [address], [place] [address] Jun, [facility] [address] [id number] [address] [place] [address], [place] [address] Jun, [facility] [address] [id number] [address] [place] [address], [place] [address] Jun, [facility] [address] [id number] [address] [place] [address], [place] [address] Jun, [facility] [address] [id number] [facility] [place] [address] Jun, [facility] [address] [id number] [address] [place] [address], [place] [address] Jun, [facility] [address] [id number] [facility] [place] [address] Jun, [facility] [address] [id number] [address] [place] [address], [place] [address] Jun, [facility] [address] [id number] [address] [place] [address], [place] [address] Jun, [facility] [address] [id number] [address] [place] [address], [place] [address] Jun, [facility] [address] [id number] [address] [place] [address], [place] [address] Jun, [facility] [address] [id number] [address] [place] [address], [place] [address] Jun, [facility] [address] [id number] [address] [place] [address], [place] [address] Jun, [facility] [address] [id number] [address] [place] [address], [place] [address] Jun, [facility] [address] [id number] [address] [place] [address], [place] [address] Jun, [facility] [address] [id number] [address] [place] [address], [place] [address] Jun, [facility] [address] [id number] [address] [place] [address], [place] [address] Jun, [facility] [address] [id number] [address] [place] [address], [place] [address] May, [facility] [address] [id number] [address] [place] [address], [place] [address] May, [facility] [address] [id number] [address] [place] [address], [place] [address] May, [facility] [address] [id number] [facility] [place] [address] May, [facility] [address] [id number] [facility] [place] [address] May, [facility] [address] [id number] [facility] [place] [address] May, 2013 [facility] [address] [id number] [address] [place] [address], [place] [address] May, 2013 [facility] [address] [id number] [address] [place] [address], [place] [address] May, [facility] [address] [id number] [address] [place] [address], [place] [address] May, 2013 [facility] [address] [id number] [address] [place] [address], [place] [address] May, [facility] [address] [id number] [address] [place] [address], [place] [address] May, [facility] [address] [id number] [address] [place] [address], [place] [address] May, [facility] [address] [id number] [address] [place] [address], [place] [address] May, [facility] [address] [id number] [address] [place] [address], [place] [address] Apr, [facility] [address] [id number] [address] [place] [address], [place] [address] Apr, [facility] [address] [id number] [address] [place] [address], [place] [address] Apr, [facility] [address] [id number] [address] [place] [address], [place] [address] Apr, [facility] [address] [id number] [address] [place] [address], [place] [address] Apr, [facility] [address] [id number] [facility] [place] [address] Apr, [facility] [address] [id number] [facility] [place] [address] Apr, [facility] [address] [id number] [facility] [place] [address] Apr, [facility] [address] [id number] [address] [place] [address], [place] [address] Apr, [facility] [address] [id number] [address] [place] [address], [place] [address] March, [facility] [address] [id number] [address] [place] [address], [place] [address] March, [facility] [address] [id number] [address] [place] [address], [place] [address] March, [facility] [address] [id number] [address] [place] [address], [place] [address] March, [facility] [address] [id number] [address] [place] [address], [place] [address] March, [facility] [address] [id number] [address] [place] [address], [place] [address] March, [facility] [address] [id number] [address] [place] [address], [place] [address] March, [facility] [address] [id number] [address] [place] [address], [place] [address] March, [facility] [address] [id number] [address] [place] [address], [place] [address] March, [facility] [address] [id number] [address] [place] [address], [place] [address] March, [facility] [address] [id number] [address] [place] [address], [place] [address] March, [facility] [address] [id number] [address] [place] [address], [place] [address] March, [facility] [address] [id number] [address] [place] [address], [place] [address] March, [facility] [address] [id number] [address] [place] [address], [place] [address] March, [facility] [address] [id number] [address] [place] [address], [place] [address] March, [facility] [address] [id number] [address] [place] [address], [place] [address] March, [facility] [address] [id number] [address] [place] [address], [place] [address] March, [facility] [address] [id number] [address] [place] [address], [place] [address] March, [facility] [address] [id number] [address] [place] [address], [place] [address] March, [facility] [address] [id number] [address] [place] [address], [place] [address] March, [facility] [address] [id number] [address] [place] [address], [place] [address] Feb, [facility] [address] [id number] [address] [place] [address], [place] [address] Feb, [facility] [address] [id number] [address] [place] [address], [place] [address] Feb, [facility] [address] [id number] [address] [place] [address], [place] [address] Feb, [facility] [address] [id number] [address] [place] [address], [place] [address] Feb, [facility] [address] [id number] [address] [place] [address], [place] [address] Feb, [facility] [address] [id number] [address] [place] [address], [place] [address] Feb, [facility] [address] [id number] [facility] [place] [address] 11 Feb, 2014 [facility] [address] [id number] [facility] [place] [address] Jan, [facility] [address] [id number] [facility] [place] [address] Jan, [facility] [address] [id number] [address] [place] [address], [place] [address] Jan, [facility] [address] [id number] [address] [place] [address], [place] [address] Jan, [facility] [address] [id number] [address] [place] [address], [place] [address] Jan, [facility] [address] [id number] [address] [place] [address], [place] [address] Jan, [facility] [address] [id number] [address] [place] [address], [place] [address] Jan, [facility] [address] [id number] [address] [place] [address], [place] [address] Jan, [facility] [address] [id number] [address] [place] [address], [place] [address] Jan, [facility] [address] [id number] [address] [place] [address], [place] [address] Jan, [facility] [address] [id number] [address] [place] [address], [place] [address] Dec, [facility] [address] [id number] [address] [place] [address], [place] [address] Dec, [facility] [address] [id number] [address] [place] [address], [place] [address] Dec, [facility] [address] [id number] [address] [place] [address], [place] [address] 2013 [facility] [address] [id number] [address] [place] [address] [address] 2013 [facility] [address] [id number] [facility] [place] [address] Dec, [facility] [address] [id number] [address] [place] [address], [place] [address] Dec, [facility] [address] [id number] [address] [place] [address], [place] [address] Dec, [facility] [address] [id number] [address] [place] [address], [place] [address] Nov, [facility] [address] [id number] [address] [place] [address], [place] [address] Nov, [facility] [address] [id number] [address] [place] [address], [place] [address] Nov, [facility] [address] [id number] [address] [place] [address], [place] [address] Nov, [facility] [address] [id number] [address] [place] [address], [place] [address] Nov, [facility] [address] [id number] [address] [place] [address], [place] [address] Nov, [facility] [address] [id number] [address] [place] [address], [place] [address] Nov, [facility] [address] [id number] [address] [place] [address], [place] [address] Nov, [facility] [address] [id number] [address] [place] [address], [place] [address] Nov, [facility] [address] [id number] [address] [place] [address], [place] [address] Nov, [facility] [place] [facility] [address] [id number] [address] [place] [address], [place] [address] Nov, [facility] [address] [id number] [address] [place] [address], [place] [address] Nov, [facility] [address] [id number] [address] [place] [address] 15 Nov, 2013 [facility] [address] [id number] [address] [place] [address], [place] [address] 30 Oct, 2013 [facility] [address] [id number] [address] [place] [address], [place] [address] 30 Oct, 2013 [facility] [address] [id number] [address] [place] [address], [place] [address] Oct, [facility] [address] [id number] [address] [place] [address], [place] [address] Oct, [facility] [address] [id number] [address] [place] [address], [place] [address] Oct, [facility] [address] [id number] [address] [place] [address], [place] [address] Oct, [facility] [address] [id number] [address] [place] [address], [place] [address] Oct, [facility] [address] [id number] [address] [place] [address], [place] [address] 18 Oct, 2013 [facility] [address] [id number] [address] [place] [address], [place] [address] 17 Oct, 2013 [facility] [address] [id number] [address] [place] [address], [place] [address] 17 Oct, 2013 [facility] [address] [id number] [address] [place] [address], [place] [address] 03 Oct, 2013 [facility] [address] [id number] [address] [place] [address], [place] [address] 03 Oct, 2013 [facility] [address] [id number] [address] [place] [address], [place] [address] 02 Oct, 2013 [facility] [address] [id number] [address] [place] [address], [place] [address] 02 Oct, 2013 [facility] [address] [id number] [address] [place] [address], [place] [address] 14 Sep, 2013 [facility] [address] [id number] [address] [place] [address], [place] [address] 14 Sep, 2013 [facility] [address] [id number] [address] [place] [address], [place] [address] 05 Sep, 2013 [facility] [address] [id number] [address] [place] [address], [place] [address] 05 Sep, 2013 [facility] [address] [id number] [address] [place] [address], [place] [address] Sep, [facility] [address] [id number] [address] [place] [address], [place] [address] Sep, [facility] [address] [id number] [address] [place] [address], [place] [address] Sep, [facility] [address] [id number] [address] [place] [address], [place] [address] Sep, [facility] [address] [id number] [address] [place] [address], [place] [address] Sep, [facility] [address] [id number] [address] [place] [address], [place] [address] Sep, [facility] [address] [id number] [address] [place] [address] Aug, [facility] [address] [id number] [address] [place] [address] Aug, [facility] [address] [id number] [address] [place] [address] Aug, [facility] [address] [id number] [address] [place] [address], [place] [address] Aug, [facility] [address] [id number] [address] [place] [address], [place] [address] Aug, [facility] [address] [id number] [address] [place] [address] Aug, [facility] [address] [id number] [address] [place] [address] 23 Aug, 2013 [facility] [address] [id number] [address] [place] [address], [place] [address] 23 Aug, 2013 [facility] [address] [id number] [address] [place] [address] 22 Aug, 2013 [facility] [address] [id number] [address] [place] [address], [place] [address] 22 Aug, 2013 [facility] [address] [id number] [address] [place] [address] 18 Aug, 2013 [facility] [address] [id number] [address] [place] [address], [place] [address] 18 Aug, 2013 [facility] [address] [id number] [address] [place] [address] 18 Aug, 2013 [facility] [address] [id number] [address] [place] [address] 18 Aug, 2013 [facility] [address] [id number] [address] [place] [address], [place] [address] 17 Aug, 2013 [facility] [address] [id number] [address] [place] [address] 14 Aug, 2013 [facility] [address] [id number] [address] [place] [address] 14 Aug, 2013 [facility] [address] [id number] [address] [place] [address] 01 Aug, 2013 [facility] [address] [id number] [address] [place] [address] 20 Jul, 2012 [facility] [address] [id number] [address] [place] [address], [place] [address] 19 Jul, 2012 [facility] [address] [id number] [address] [place] [address] 18 Jul, 2012 [facility] [address] [id number] [address] [place] [address], [place] [address] 11 Jul, 2012 [facility] [address] [id number] [facility] [place] [address] Jul, [facility] [address] [id number] [address] [place] [address], [place] [address] Jun, [facility] [address] [id number] [address] [place] [address], [place] [address] Jun, [facility] [address] [id number] [address] [place] [address], [place] [address] Jun, [facility] [address] [id number] [address] [place] [address], [place] [address] Jun, [facility] [address] [id number] [address] [place] [address], [place] [address] Jun, [facility] [address] [id number] [address] [place] [address], [place] [address] Jun, [facility] [address] [id number] [address] [place] [address], [place] [address] Jun, [facility] [address] [id number] [address] [place] [address], [place] [address] Jun, [facility] [address] [id number] [address] [place] [address], [place] [address] Jun, [facility] [address] [id number] [address] [place] [address], [place] [address] Jun, [facility] [address] [id number] [address] [place] [address], [place] [address] May, [facility] [address] [id number] [address] [place] [address], [place] [address] May, [facility] [address] [id number] [address] [place] [address], [place] [address] May, [facility] [address] [id number] [address] [place] [address], [place] [address] May, [facility] [address] [id number] [address] [place] [address], [place] [address] May, [facility] [address] [id number] [address] [place] [address], [place] [address] 16 May, 2013 [facility] [address] [id number] [address] [place] [address], [place] [address] May, [facility] [address] [id number] [address] [place] [address], [place] [address] May, [facility] [address] [id number] [address] [place] [address], [place] [address] May, [facility] [address] [id number] [address] [place] [address], [place] [address] Apr, [facility] [address] [id number] [address] [place] [address], [place] [address] Apr, [facility] [address] [id number] [address] [place] [address], [place] [address] Apr, [facility] [address] [id number] [address] [place] [address], [place] [address] Apr, [facility] [address] [id number] [address] [place] [address], [place] [address] Apr, [facility] [address] [id number] [address] [place] [address], [place] [address] Apr, [facility] [address] [id number] [address] [place] [address], [place] [address] Apr, [facility] [address] [id number] [address] [place] [address], [place] [address] March, [facility] [address] [id number] [address] [place] [address], [place] [address] Feb, [facility] [address] [id number] [address] [place] [address], [place] [address] Feb, [facility] [address] [id number] [address] [place] [address], [place] [address] Feb, [facility] [address] [id number] [address] [place] [address], [place] [address] 28 Jan, 2013 [facility] [address] [id number] [address] [place] [address], [place] [address] 21 Jan, 2013 [facility] [address] [id number] [address] [place] [address], [place] [address] 19 Jan, 2013 [facility] [address] [id number] [address] [place] [address], [place] [address] 14 Jan, 2013 [facility] [address] [id number] [address] [place] [address], [place] [address] 12 Jan, 2013 [facility] [address] [id number] [address] [place] [address], [place] [address] 08 Jan, 2013 [facility] [address] [id number] [address] [place] [address], [place] [address] 07 Jan, 2013 [facility] [address] [id number] [address] [place] [address], [place] [address] 04 Jan, 2013 [facility] [address] [id number] [address] [place] [address], [place] [address] 28 Dec, 2012 [facility] [address] [id number] [address] [place] [address], [place] [address] 25 Dec, 2012 [facility] [address] [id number] [address] [place] [address], [place] [address] 13 Dec, 2012 [facility] [address] [id number] [address] [place] [address], [place] [address] 11 Dec, 2012 [facility] [address] [id number] [address] [place] [address], [place] [address] 07 Dec, 2012 [facility] [address] [id number] [address] [place] [address], [place] [address] 06 Dec, 2012 [facility] [address] [id number] [address] [place] [address], [place] [address] 05 Dec, 2012 [facility] [address] [id number] [address] [place] [address], [place] [address] Nov, [facility] [address] [id number] [address] [place] [address], [place] [address] Nov, [facility] [address] [id number] [address] [place] [address], [place] [address] 18 Nov, 2012 [facility] [address] [id number] [address] [place] [address], [place] [address] 15 Nov, 2012 [facility] [address] [id number] [address] [place] [address], [place] [address] Nov, [facility] [address] [id number] [address] [place] [address], [place] [address] Nov, [facility] [address] [id number] [address] [place] [address], [place] [address] Nov, [facility] [address] [id number] [address] [place] [address], [place] [address] Oct, [facility] [address] [id number] [address] [place] [address], [place] [address] Oct, [facility] [address] [id number] [address] [place] [address], [place] [address] Oct, [facility] [address] [id number] [address] [place] [address], [place] [address] Oct, [facility] [address] [id number] [address] [place] [address], [place] [address] Oct, [facility] [address] [id number] [address] [place] [address], [place] [address] 17 Oct, 2012 [facility] [address] [id number] [address] [place] [address], [place] [address] Oct, [facility] [address] [id number] [address] [place] [address], [place] [address] 07 Oct, 2012 [facility] [address] [id number] [address] [place] [address], [place] [address] 05 Oct, 2012 [facility] [address] [id number] [address] [place] [address] Oct, [facility] [address] [id number] [address] [place] [address], [place] [address] Oct, [facility] [address] [id number] [address] [place] [address] Oct, [facility] [address] [id number] [address] [place] [address], [place] [address] Sep, [facility] [address] [id number] [address] [place] [address], [place] [address] Sep, [facility] [address] [id number] [address] [place] [address], [place] [address] Sep, [facility] [address] [id number] [address] [place] [address], [place] [address] Sep, [facility] [address] [id number] [address] [place] [address] Sep, [facility] [address] [id number] [address] [place] [address], [place] [address] Sep, [facility] [address] [id number] [address] [place] [address], [place] [address] Sep, [facility] [address] [id number] [address] [place] [address] Sep, [facility] [address] [id number] [address] [place] [address], [place] [address] Sep, [facility] [address] [id number] [address] [place] [address] Sep, [facility] [address] [id number] [address] [place] [address] Sep, [facility] [address] [id number] [address] [place] [address], [place] [address] Aug, [facility] [address] [id number] [address] [place] [address] Aug, [facility] [address] [id number] [address] [place] [address], [place] [address] Aug, [facility] [address] [id number] [address] [place] [address], [place] [address] Aug, [facility] [address] [id number] [address] [place] [address], [place] [address] Aug, [facility] [address] [id number] [address] [place] [address], [place] [address] Aug, [facility] [address] [id number] [address] [place] [address], [place] [address] Aug, [facility] [address] [id number] [address] [place] [address], [place] [address] Aug, [facility] [address] [id number] [address] [place] [address], [place] [address] Aug, [facility] [address] [id number] [address] [place] [address], [place] [address] Aug, [facility] [address] [id number] [address] [place] [address], [place] [address] 22 Jul, 2012 [facility] [address] [id number] [address] [place] [address], [place] [address] 20 Jul, 2012 [facility] [address] [id number] [address] [place] [address], [place] [address] 10 Jul, 2012 [facility] [address] [id number] [address] [place] [address], [place] [address] 06 Jul, 2012 [facility] [address] [id number] [address] [place] [address], [place] [address] 30 Jun, 2012 [facility] [address] [id number] [address] [place] [address], [place] [address] Jun, [facility] [address] [id number] [address] [place] [address], [place] [address] 16 Jun, 2012 [facility] [address] [id number] [address] [place] [address], [place] [address] Jun, [facility] [address] [id number] [address] [place] [address], [place] [address] Jun, [facility] [address] [id number] [address] [place] [address], [place] [address] Jun, [facility] [address] [id number] [address] [place] [address], [place] [address] Jun, [facility] [address] [id number] [address] [place] [address], [place] [address] May, [facility] [address] [id number] [address] [place] [address], [place] [address] May, [facility] [address] [id number] [address] [place] [address], [place] [address] May, [facility] [address] [id number] [address] [place] [address], [place] [address] May, [facility] [address] [id number] [address] [place] [address], [place] [address] May, [facility] [address] [id number] [address] [place] [address], [place] [address] Apr, [facility] [address] [id number] [address] [place] [address], [place] [address] Apr, [facility] [address] [id number] [address] [place] [address], [place] [address] Apr, [facility] [address] [id number] [address] [place] [address], [place] [address] Apr, [facility] [address] [id number] [address] [place] [address], [place] [address] Apr, [facility] [address] [id number] [address] [place] [address], [place] [address] March, [facility] [address] [id number] [address] [place] [address], [place] [address] March, [facility] [address] [id number] [address] [place] [address], [place] [address] March, [facility] [address] [id number] [address] [place] [address], [place] [address] March, [facility] [address] [id number] [address] [place] [address], [place] [address] March, [facility] [address] [id number] [address] [place] [address], [place] [address] March, [facility] [address] [id number] [address] [place] [address], [place] [address] March, [facility] [address] [id number] [address] [place] [address], [place] [address] March, [facility] [address] [id number] [address] [place] [address], [place] [address] March, [facility] [address] [id number] [address] [place] [address], [place] [address] March, [facility] [address] [id number] [address] [place] [address], [place] [address] Feb, [facility] [address] [id number] [address] [place] [address], [place] [address] Feb, [facility] [address] [id number] [address] [place] [address], [place] [address] Feb, [facility] [address] [id number] [address] [place] [address], [place] [address] Feb, [facility] [address] [id number] [address] [place] [address], [place] [address] Feb, [facility] [address] [id number] [address] [place] [address], [place] [address] Feb, [facility] [address] [id number] [address] [place] [address], [place] [address] Feb, [facility] [address] [id number] [address] [place] [address], [place] [address] Feb, [facility] [address] [id number] [address] [place] [address], [place] [address] Feb, [facility] [address] [id number] [address] [place] [address], [place] [address] Jan, [facility] [address] [id number] [address] [place] [address], [place] [address] Jan, [facility] [address] [id number] [address] [place] [address], [place] [address] Jan, [facility] [address] [id number] [address] [place] [address], [place] [address] Jan, [facility] [address] [id number] [address] [place] [address], [place] [address] Dec, [facility] [address] [id number] [address] [place] [address], [place] [address] Dec, [facility] [address] [id number] [address] [place] [address], [place] [address] Nov, [facility] [address] [id number] [address] [place] [address], [place] [address] Nov, [facility] [address] [id number] [address] [place] [address], [place] [address] Nov, [facility] [address] [id number] [address] [place] [address], [place] [address] Nov, [facility] [address] [id number] [address] [place] [address], [place] [address] Nov, [facility] [address] [id number] [address] [place] [address], [place] [address] Oct, [facility] [address] [id number] [address] [place] [address], [place] [address] Oct, [facility] [address] [id number] [address] [place] [address], [place] [address] Oct, [facility] [address] [id number] [address] [place] [address] Oct, [facility] [address] [facility] [id number] [address] [place] [address] Oct, [facility] [address] [facility] [id number] [address] [place] [address] Oct, [facility] [address] [facility] [id number] [address] [place] [address] Oct, [facility] [address] [facility] [id number] [address] [place] [address] Oct, [facility] [address] [facility] [id number] [address] [place] [address] Sep, IMMUNIZATIONS No Known Immunizations SOCIAL HISTORY [...] fever, discharged 11/27/2017 11/26/2017 Hospitalization History ED [place]- Went Unrepsonsive, Hit head 2017 Hospitalization History ED [place]- Back Pain 05/05/201 8
--- OUTSIDE RECORDS SUMMARY | 2020-06-18 15:18 | XMS REPORT ---
Author Author Sanjuanita VEGA Organization [facility] Address [address] [place] [address] Care Team Providers Care Pattern Checker Name Role Phone SHANIQUE VEGA Unavailable PROBLEMS Type Condition ICD9-CM Code LSX18-YK Code Onset Dates Condition S tatus SNOMED Code Problem Coronary artery disease I25.10 Active 98117674 Problem Hypertension I10 Active 8901440 3 Problem Other chronic pain G89.29 Active 8 2031895 Problem Hyperlipidemia E78.5 Active 90437 004 Problem Type 2 diabetes mellitus wit hout complication, without long-term current use of insulin E11.9 Active 135911572 Problem Low back pain M54.5 Active 460733 009 Problem Pharyngeal dysphagia R13.13 Active [id number] Problem Anxiety F41.9 Active 64365489 Problem Peripheral vascular disease I73.9 Ac tive 456198280 Problem Suprapubic catheter Z93.59 Active 021058664 Problem Reactive depression F32.9 Active 31627225 Problem Neurogenic bladder N31.9 Active 3 56950967 Problem Ventral hernia without obstruction or gangrene K43 .9 Active 879877061 Problem Insomnia G47.00 Active 570591317 Problem Paroxysmal atrial fibrillation I48.0 Active 070289003 Problem Postmenopausal atrophic vaginitis N95.2 Active 03403216 Problem Encounter for suprapubic catheter care Z43.5 Active 995485251 ALLERGIES No Information ENCOUNTERS Encounter Location Date Diagnosis Via [facility] [address] [place] [id number] Jun, [facility] [address] [facility] [id number] [address] [place] [address] May, Dysuria R30.0 [facility] [address] [facility] [id number] [address] [place] [address] May, Strain of right shoulder, scherer bsequent encounter S46.911D and Anxiety F41.9 [place] [id number] [id number] [address] [place] [address] 27 Apr, 2019 Via [facility] [address] [place] [id number] 18 Apr, 2019 Strain of right shoulder, subsequent enc ounter S46.911D [place] [address] [id number] [address] [place] [address] 14 Apr, 2019 Strain of right shoulder, scherer bsequent encounter S46.911D and Anxiety F41.9 Via [facility] [address] [place] [id number] 13 Apr, 2019 Type 2 diabetes mellitus without complic ation, without long-term current use of insulin E11.9 and Neurogenic bladder N31.9 Via [facility] [address] [place] [id number] 11 Apr, 2019 Strain of right shoulder, subsequent enc ounter S46.911D ; History of GI bleed Z87.19 ; Neurogenic bladder N31.9 and Reactive depression F32.9 [place] [address] [id number] [address] [place] [id number] 10 Apr, 2019 Acute pain of left shoulder M25.512 [place] [address] [id number] [address] [place] [id number] 07 Apr, 2019 [place] [address] [id number] [address] [place] [address] Apr, Anxiety F41.9 and Other glass sagger 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 [facility] [address] [place] [id number] March, Gastrointestinal hemorrhage associated w ith acute gastritis K29.01 [place] [address] [id number] [address] [place] [address] March, [facility] [address] [place] [id number] March, Bronchitis J40 [place] [address] [id number] [address] [place] [address] March, Cough R05 [facility] [address] [id number] [address] [place] [address] March, Other chronic pain G89.29 [facility] [address] [id number] [address] [place] [phone] March, Anxiety F41.9 [facility] [address] [id number] [address] [place] [address] March, [facility] [address] [id number] [address] [place] [id number] Feb, Other chronic pain G89.29 [facility] [address] [id number] [address] [place] [address] Feb, Anxiety F41.9 [facility] [address] [id number] [address] [place] [address] Feb, Other chronic pain G89.29 Via [employer] [address] [place] [id number] Feb, Neurogenic bladder N31.9 and Suprapubic catheter Z93.59 [facility] [address] [id number] [address] [place] [phone] Jan, Anxiety F41.9 [facility] [address] [id number] [address] [place] [id number] Dec, Anxiety F41.9 [facility] [address] [id number] [address] [place] [address] Dec, Other chronic pain G89.29 an d Anxiety F41.9 [facility] [address] [id number] [address] [place] [phone] Dec, Via [employer] [address] [place] [id number] Dec, Neurogenic bladder N31.9 and Suprapubic catheter Z93.59 [facility] [address] [id number] [address] [place] [address] Nov, Other chronic pain G89.29 an d Anxiety F41.9 [facility] [address] [id number] [address] [place] [phone] Nov, Via [employer] [address] [place] [id number] Nov, Suprapubic catheter Z93.59 [facility] [address] [id number] [address] [place] [address] Oct, Other chronic pain G89.29 an d Anxiety F41.9 [facility] [address] [id number] [address] [place] [address] Oct, [facility] [address] [id number] [address] [place] [address] Oct, Suprapubic catheter Z93.59 [facility] [address] [id number] [address] [place] [phone] Oct, Via [employer] [address] [place] [id number] Oct, [facility] [address] [id number] [address] [place] [address] Oct, Anxiety F41.9 [facility] [address] [id number] [address] [place] [address] Oct, Anxiety F41.9 Via [facility] [employer] [address] [place] [id number] Oct, Other chronic pain G89.29 [facility] [address] [id number] [address] [place] [address] Sep, Other chronic pain G89.29 [facility] [employer] [address] [place] [id number] Sep, Suprapubic catheter Z93.59 and Cervicalg ia M54.2 [facility] [address] [id number] [address] [place] [address] Sep, [facility] [address] [id number] [address] [place] [phone] Sep, [facility] [address] [id number] [address] [place] [phone] Sep, Via [employer] [address] [place] [id number] Aug, Cystitis N30.90 [facility] [address] [id number] [address] [place] [address] Aug, [facility] [address] [id number] [address] [place] [phone] Aug, Other chronic pain G89.29 [facility] [address] [id number] [address] [place] [address] Aug, Via [employer] [address] [place] [id number] Aug, Encounter for suprapubic catheter care Z 43.5 [facility] [address] [id number] [address] [place] [address] Jul, Via [employer] [address] [place] [id number] Jul, [facility] [address] [id number] [address] [place] [address] Jul, Other chronic pain G89.29 [facility] [address] [id number] [address] [place] [address] Jul, [facility] [address] [id number] [address] [place] [address] Jul, Via [employer] [address] [place] [id number] Jun, Postmenopausal atrophic vaginitis N95.2 [facility] [address] [id number] [address] [place] [phone] Jun, Other chronic pain G89.29 [facility] [address] [id number] [address] [place] [address] Jun, Via [employer] [address] [place] [id number] May, Anxiety F41.9 ; Type 2 diabetes mellitus without complication, without long-term current use of insulin E11.9 ; Hypertension I10 ; Low back pain M54.5 ; Paroxysmal atrial fibrillation I48.0 and 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 [facility] [address] [id number] [address] [place] [address] May, Other chronic pain G89.29 Via [facility] [employer] [address] [place] [id number] May, Low back pain M54.5 [place] [address] [id number] [address] [place] [address] May, [place] [address] [id number] [address] [place] [address] Apr, Other chronic pain G89.29 [place] [address] [id number] [address] [place] [address] Apr, [facility] [address] [id number] [address] [place] [address] Apr, Via [facility] [address] [place] [id number] Apr, Closed compression fracture of L3 lumbar vertebra with routine healing, subsequent encounter S32.030D Via [facility] [address] [place] [id number] Apr, Low back pain M54.5 [facility] [employer] [address] [place] [id number] Apr, Coccydynia M53.3 [facility] [address] [id number] [address] [place] [address] March, [facility] [address] [id number] [address] [place] [address] March, Other chronic pain G89.29 [facility] [address] [id number] [address] [place] [address] March, [facility] [address] [id number] [address] [place] [phone] March, [facility] [address] [id number] [address] [place] [phone] Feb, [facility] [address] [id number] [address] [place] [address] Feb, Other chronic pain G89.29 Via [facility] [address] [place] [id number] Feb, Other chronic pain G89.29 and Anxiety F4 1.9 [facility] [address] [id number] [address] [place] [address] Feb, [facility] [address] [id number] [address] [place] [id number] Jan, [facility] [address] [id number] [address] [place] [phone] Jan, [facility] [address] [id number] [address] [place] [phone] Jan, [facility] [address] [id number] [address] [place] [phone] Jan, [facility] [address] [facility] [id number] [address] [place] [address] Dec, [facility] [address] [place] [id number] Dec, Peripheral vascular disease I73.9 ; 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 ; Other chronic pain G89.29 ; Anxiety F41.9 ; Reactive depression F32.9 ; Insomnia G47.00 and Type 2 diabetes mellitus without complication, without long-term current use of insulin E11.9 [facility] [address] [id number] [place] [address] Nov, [facility] [address] [id number] [place] [id number] Nov, Anxiety F41.9 [facility] [address] [id number] [address] [place] [address] Nov, [facility] [address] [id number] [place] [id number] Nov, Anxiety F41.9 [facility] [employer] [address] [place] [id number] Nov, Status post surgery Z98.890 ; Confused R 41.0 ; Anxiety F41.9 and Other chronic pain G89.29 [facility] [address] [id number] [place] [id number] Nov, Other chronic pain G89.29 [facility] [address] [id number] [address] [place] [address] Oct, [facility] [address] [id number] [place] [id number] Oct, Other chronic pain G89.29 [facility] [address] [id number] [address] [place] [address] Oct, Anxiety F41.9 [facility] [address] [id number] [place] [id number] Sep, Other chronic pain G89.29 [facility] [address] [id number] [place] [id number] Sep, Via [employer] [address] [place] [id number] Aug, Dysuria R30.0 and Anxiety F41.9 [facility] [address] [id number] [address] [place] [address] Aug, [facility] [address] [id number] [place] [id number] Aug, Other chronic pain G89.29 [facility] [address] [id number] [address] [place] [address] Jul, Other chronic pain G89.29 [facility] [address] [id number] [place] [id number] Jun, [facility] [address] [id number] [place] [id number] Jun, Other chronic pain G89.29 [facility] [address] [id number] [address] [place] [phone] Jun, [facility] [address] [id number] [address] [place] [address] May, Other chronic pain G89.29 [facility] [address] [id number] [address] [place] [address] Apr, Other chronic pain G89.29 [facility] [address] [place] [id number] Apr, Reactive depression F32.9 and Pharyngeal dysphagia R13.13 [facility] [address] [facility] [id number] [address] [place] [phone] Apr, Urinary tract infection with out hematuria, site unspecified N39.0 [facility] [address] [facility] [id number] [address] [place] [address] March, Other chronic pain G89.29 [facility] [address] [id number] [address] [place] [address] Feb, Other chronic pain G89.29 [facility] [address] [id number] [address] [place] [address] Feb, [facility] [address] [id number] [place] [id number] Feb, [facility] [employer] [address] [place] [id number] Feb, Dysuria R30.0 and Ventral hernia without obstruction or gangrene K43.9 [facility] [address] [id number] [address] [place] [address] Jan, Other chronic pain G89.29 [facility] [address] [id number] [id number] Dec, Other chronic pain G89.29 [facility] [address] [id number] [address] [place] [address] Nov, Other chronic pain G89.29 [facility] [address] [place] [id number] Nov, Lymphadenitis I88.9 [facility] [address] [id number] [address] [place] [address] Nov, Other chronic pain G89.29 [facility] [address] [id number] [address] [place] [address] Nov, [facility] [id number] [place] [id number] Nov, Other chronic pain G89.29 [facility] [address] [place] [id number] Oct, Low back pain M54.5 ; Hypertension I10 a nd Type 2 diabetes mellitus without complication, without long-term current use of insulin E11.9 [facility] [address] [id number] [address] [place] [address] Oct, [facility] [address] [id number] [address] [place] [phone] Oct, [facility] [address] [id number] [address] [place] [address] Oct, [facility] [address] [id number] [address] [place] [address] Oct, [facility] [address] [id number] [address] [place] [address] Sep, [facility] [address] [id number] [address] [place] [address] Sep, [facility] [address] [id number] [address] [place] [address] Aug, Other chronic pain G89.29 [facility] [address] [id number] [address] [place] [address] Jul, [facility] [address] [id number] [address] [place] [address] Jul, [facility] [address] [id number] [address] [place] [address] Jul, [facility] [address] [id number] [address] [place] [phone] Jun, [facility] [address] [id number] [address] [place] [address] Jun, [facility] [address] [place] [id number] Jun, Low back pain M54.5 ; Other chronic pain G89.29 and Coronary artery disease I25.10 [facility] [address] [id number] [address] [place] [phone] Jun, [facility] [address] [id number] [address] [place] [phone] May, [facility] [address] [id number] [address] [place] [address] May, [facility] [address] [id number] [address] [place] [address] May, Other chronic pain G89.29 [facility] [address] [id number] [address] [place] [address] May, [facility] [address] [id number] [address] [place] [address] Apr, [facility] [address] [id number] [address] [place] [address] Apr, Acute cystitis without hemat uria N30.00 [facility] [address] [id number] [address] [place] [address] 16 Apr, 2016 Acute cystitis without hemat uria N30.00 ; Coronary artery disease I25.10 ; Low back pain M54.5 and Other chronic pain G89.29 [facility] [address] [id number] [address] [place] [address] Apr, Other chronic pain G89.29 [facility] [address] [id number] [address] [place] [address] March, Other chronic pain G89.29 [facility] [address] [id number] [address] [place] [address] 18 Feb, 2016 [facility] [address] [id number] [address] [place] [phone] 15 Feb, 2016 Arthritis M19.90 [facility] [address] [id number] [address] [place] [phone] Feb, [facility] [address] [facility] [id number] [address] [place] [id number] Jan, [facility] [address] [id number] [address] [place] [phone] Jan, [facility] [address] [id number] [address] [place] [address] Jan, Other chronic pain G89.29 [facility] [address] [facility] [id number] [address] [place] [phone] Jan, Hypertension I10 ; Coronary artery disease I25.10 and Insomnia G47.00 [facility] [address] [id number] [address] [place] [address] Jan, [facility] [address] [id number] [address] [place] [id number] Dec, Right hip pain M25.551 [facility] [address] [facility] [id number] [address] [place] [phone] Dec, [facility] [address] [facility] [id number] [address] [place] [phone] Dec, [facility] [address] [facility] [id number] [address] [place] [address] Dec, [facility] [address] [id number] [address] [place] [address] Dec, Other chronic pain G89.29 [facility] [address] [id number] [address] [place] [address] Dec, [facility] [address] [id number] [address] [place] [id number] Nov, [facility] [address] [id number] [address] [place] [address] Nov, Other chronic pain G89.29 [facility] [address] [id number] [address] [place] [address] Nov, Right hip pain M25.551 and C oronary artery disease I25.10 [facility] [address] [id number] [address] [place] [address] Nov, Other chronic pain G89.29 [facility] [address] [id number] [address] [place] [address] Oct, [facility] [address] [id number] [address] [place] [phone] Oct, [facility] [address] [id number] [address] [place] [address] Sep, [facility] [address] [id number] [address] [place] [phone] Sep, [facility] [address] [id number] [address] [place] [phone] Aug, [facility] [address] [id number] [address] [place] [address] Aug, Hypertension I10 ; Coronary artery disease I25.10 and Arthritis M19.90 [facility] [address] [id number] [address] [place] [id number] Jun, [facility] [address] [id number] [address] [place] [id number] Jun, Essential hypertension, jayson gn 401.1 ; Other chronic pain 338.29 and Chronic airway obstruction, not elsewhere classified 496 [facility] [address] [id number] [address] [place] [id number] Jun, [facility] [address] [id number] [address] [place] [id number] Jun, [facility] [address] [id number] [address] [place] [id number] Jun, [facility] [address] [id number] [address] [place] [id number] May, [facility] [address] [id number] [address] [place] [id number] May, [facility] [address] [id number] [address] [place] [id number] Apr, [facility] [address] [id number] [address] [place] [id number] Apr, [facility] [address] [id number] [address] [place] [id number] Apr, [facility] [address] [id number] [address] [place] [id number] March, [facility] [address] [id number] [address] [place] [id number] March, [facility] [address] [id number] [address] [place] [id number] March, [facility] [address] [id number] [address] [place] [id number] March, [facility] [address] [id number] [address] [place] [id number] March, Sialadenitis 527.2 [facility] [address] [id number] [address] [place] [id number] Feb, [facility] [address] [id number] [address] [place] [address], [place] [address] Feb, [facility] [address] [id number] [address] [place] [address], [place] [address] Feb, [facility] [address] [id number] [address] [place] [address], [place] [address] Feb, [facility] [address] [id number] [address] [place] [address], [place] [address] Feb, [facility] [address] [id number] [address] [place] [address], [place] [address] Jan, [facility] [address] [id number] [address] [place] [address], [place] [address] Jan, [facility] [address] [id number] [address] [place] [address], [place] [address] Jan, [facility] [address] [id number] [address] [place] [address], [place] [address] Jan, [facility] [address] [id number] [address] [place] [address], [place] [address] Jan, [facility] [address] [id number] [address] [place] [address], [place] [address] Jan, [facility] [address] [id number] [address] [place] [address], [place] [address] Dec, [facility] [address] [id number] [address] [place] [address], [place] [address] Dec, 2014 [facility] [address] [id number] [address] [place] [address], [place] [address] Dec, [facility] [address] [id number] [address] [place] [address], [place] [address] Dec, 2014 [facility] [address] [id number] [address] [place] [address], [place] [address] Dec, 2014 [facility] [address] [id number] [address] [place] [address], [place] [address] Dec, [facility] [address] [id number] [address] [place] [address], [place] [address] Nov, [facility] [address] [id number] [address] [place] [address], [place] [address] Nov, [facility] [address] [id number] [address] [place] [address], [place] [address] Nov, [facility] [address] [id number] [address] [place] [address], [place] [address] Nov, [facility] [address] [id number] [address] [place] [address], [place] [address] Nov, [facility] [address] [id number] [address] [place] [address], [place] [address] Nov, [facility] [address] [id number] [address] [place] [address], [place] [address] Nov, [facility] [address] [id number] [address] [place] [address], [place] [address] Nov, [facility] [address] [id number] [address] [place] [address], [place] [address] Nov, [facility] [address] [id number] [address] [place] [address], [place] [address] Nov, [facility] [address] [id number] [address] [place] [address], [place] [address] Nov, [facility] [address] [id number] [address] [place] [address], [place] [address] Nov, [facility] [address] [id number] [address] [place] [address], [place] [address] Nov, [facility] [address] [id number] [address] [place] [address], [place] [address] Nov, [facility] [address] [id number] [address] [place] [address], [place] [address] Oct, [facility] [address] [id number] [address] [place] [address], [place] [address] Oct, [facility] [address] [id number] [address] [place] [address], [place] [address] Oct, [facility] [address] [id number] [address] [place] [address], [place] [address] 18 Oct, 2014 [facility] [address] [id number] [address] [place] [address], [place] [address] 18 Oct, 2014 [facility] [address] [id number] [address] [place] [address], [place] [address] 17 Oct, 2014 [facility] [address] [id number] [address] [place] [address], [place] [address] Oct, [facility] [address] [id number] [address] [place] [address], [place] [address] Oct, [facility] [address] [id number] [address] [place] [address], [place] [address] Oct, [facility] [address] [id number] [address] [place] [address], [place] [address] Sep, [facility] [address] [id number] [address] [place] [address], [place] [address] Sep, [facility] [address] [id number] [address] [place] [address], [place] [address] Sep, [facility] [address] [id number] [address] [place] [address], [place] [address] Sep, [facility] [address] [id number] [address] [place] [address], [place] [address] Sep, [facility] [address] [id number] [address] [place] [address], [place] [address] Sep, [facility] [address] [id number] [address] [place] [address], [place] [address] Sep, [facility] [address] [id number] [address] [place] [address], [place] [address] Sep, [facility] [address] [id number] [address] [place] [address], [place] [address] Sep, [facility] [address] [id number] [address] [place] [address], [place] [address] Sep, [facility] [address] [id number] [address] [place] [address], [place] [address] Sep, [facility] [address] [id number] [address] [place] [address] Sep, [facility] [address] [id number] [address] [place] [address], [place] [address] Aug, [facility] [address] [id number] [address] [place] [address] Aug, [facility] [address] [id number] [address] [place] [address], [place] [address] Aug, [facility] [address] [id number] [address] [place] [address], [place] [address] Aug, [facility] [address] [id number] [address] [place] [address], [place] [address] Aug, [facility] [address] [id number] [address] [place] [address], [place] [address] Aug, [facility] [address] [id number] [address] [place] [address], [place] [address] Aug, [facility] [address] [id number] [address] [place] [address] Aug, [facility] [address] [id number] [address] [place] [address], [place] [address] 30 Jul, 2014 [facility] [address] [id number] [address] [place] [address], [place] [address] 30 Jul, 2014 [facility] [address] [id number] [address] [place] [address], [place] [address] 30 Jul, 2014 [facility] [address] [id number] [facility] [place] [address] 30 Jul, 2013 [facility] [address] [id number] [facility] [place] [address] 25 Jul, 2014 [facility] [address] [id number] [facility] [place] [address] 25 Jul, 2014 [facility] [address] [id number] [address] [place] [address], [place] [address] 15 Jul, 2014 [facility] [address] [id number] [address] [place] [address], [place] [address] 15 Jul, 2014 [facility] [address] [id number] [address] [place] [address], [place] [address] 11 Jul, 2014 [facility] [address] [id number] [address] [place] [address], [place] [address] Jul, [facility] [address] [id number] [address] [place] [address], [place] [address] Jun, [facility] [address] [id number] [address] [place] [address], [place] [address] Jun, [facility] [address] [id number] [address] [place] [address], [place] [address] Jun, [facility] [address] [id number] [address] [place] [address], [place] [address] Jun, [facility] [address] [id number] [address] [place] [address], [place] [address] Jun, [facility] [address] [id number] [address] [place] [address], [place] [address] Jun, [facility] [address] [id number] [address] [place] [address], [place] [address] Jun, [facility] [address] [id number] [address] [place] [address], [place] [address] Jun, [facility] [address] [id number] [address] [place] [address], [place] [address] Jun, [facility] [address] [id number] [address] [place] [address], [place] [address] Jun, [facility] [address] [id number] [address] [place] [address], [place] [address] Jun, [facility] [address] [id number] [address] [place] [address], [place] [address] Jun, [facility] [address] [id number] [address] [place] [address], [place] [address] Jun, [facility] [address] [id number] [address] [place] [address], [place] [address] Jun, [facility] [address] [id number] [address] [place] [address], [place] [address] Jun, [facility] [address] [id number] [address] [place] [address], [place] [address] Jun, [facility] [address] [id number] [address] [place] [address], [place] [address] Jun, [facility] [address] [id number] [address] [place] [address], [place] [address] Jun, [facility] [address] [id number] [address] [place] [address], [place] [address] Jun, [facility] [address] [id number] [address] [place] [address], [place] [address] Jun, [facility] [address] [id number] [address] [place] [address], [place] [address] Jun, [facility] [address] [id number] [address] [place] [address], [place] [address] Jun, [facility] [address] [id number] [address] [place] [address], [place] [address] May, [facility] [address] [id number] [address] [place] [address], [place] [address] May, [facility] [address] [id number] [address] [place] [address], [place] [address] May, [facility] [address] [id number] [facility] [place] [address] May, [facility] [address] [id number] [address] [place] [address], [place] [address] May, [facility] [address] [id number] [address] [place] [address], [place] [address] May, 2013 [facility] [address] [id number] [address] [place] [address], [place] [address] May, 2013 [facility] [address] [id number] [address] [place] [address], [place] [address] May, [facility] [address] [id number] [address] [place] [address], [place] [address] May, [facility] [address] [id number] [address] [place] [address], [place] [address] May, [facility] [address] [id number] [address] [place] [address], [place] [address] May, [facility] [address] [id number] [address] [place] [address], [place] [address] May, [facility] [address] [id number] [address] [place] [address], [place] [address] May, [facility] [address] [id number] [address] [place] [address], [place] [address] Apr, [facility] [address] [id number] [address] [place] [address], [place] [address] Apr, [facility] [address] [id number] [address] [place] [address], [place] [address] Apr, [facility] [address] [id number] [address] [place] [address], [place] [address] Apr, [facility] [address] [id number] [address] [place] [address], [place] [address] Apr, [facility] [address] [id number] [facility] [place] [address] Apr, [facility] [address] [id number] [facility] [place] [address] Apr, [facility] [address] [id number] [facility] [place] [address] Apr, [facility] [address] [id number] [facility] [address] Apr, [facility] [address] [id number] [facility] [address] March, [facility] [address] [id number] [facility] [place] [address] March, [facility] [address] [id number] [facility] [address] March, [facility] [address] [id number] [address] [place] [address], [place] [address] March, [facility] [address] [id number] [address] [place] [address], [place] [address] March, [facility] [address] [id number] [address] [place] [address], [place] [address] March, [facility] [address] [id number] [address] [place] [address], [place] [address] March, [facility] [address] [id number] [address] [place] [address], [place] [address] March, [facility] [address] [id number] [address] [place] [address], [place] [address] March, [facility] [address] [id number] [address] [place] [address], [place] [address] March, [facility] [address] [id number] [facility] [place] [address] March, [facility] [address] [id number] [address] [place] [address], [place] [address] March, [facility] [address] [id number] [facility] [place] [address] March, [facility] [address] [id number] [address] [place] [address], [place] [address] March, [facility] [address] [id number] [address] [place] [address], [place] [address] March, [facility] [address] [id number] [address] [place] [address], [place] [address] March, [facility] [address] [id number] [address] [place] [address], [place] [address] March, [facility] [address] [id number] [address] [place] [address], [place] [address] March, [facility] [address] [id number] [address] [place] [address], [place] [address] March, [facility] [address] [id number] [address] [place] [address], [place] [address] March, [facility] [address] [id number] [address] [place] [address], [place] [address] Feb, [facility] [address] [id number] [address] [place] [address], [place] [address] Feb, [facility] [address] [id number] [address] [place] [address], [place] [address] Feb, [facility] [address] [id number] [address] [place] [address], [place] [address] Feb, [facility] [address] [id number] [address] [place] [address], [place] [address] Feb, [facility] [address] [id number] [address] [place] [address], [place] [address] Feb, [facility] [address] [id number] [address] [place] [address], [place] [address] Feb, [facility] [address] [id number] [facility] [place] [address] 11 Feb, 2014 [facility] [address] [id number] [facility] [place] [address] Jan, [facility] [address] [id number] [facility] [address] Jan, [facility] [address] [id number] [facility] [address] Jan, [facility] [address] [id number] [facility] [place] [address] Jan, [facility] [address] [id number] [address] [place] [address], [place] [address] Jan, [facility] [address] [id number] [address] [place] [address], [place] [address] Jan, [facility] [address] [id number] [address] [place] [address], [place] [address] Jan, [facility] [address] [id number] [address] [place] [address], [place] [address] Jan, [facility] [address] [id number] [address] [place] [address], [place] [address] Jan, [facility] [address] [id number] [address] [place] [address], [place] [address] Jan, [facility] [address] [id number] [address] [place] [address], [place] [address] Dec, [facility] [address] [id number] [address] [place] [address], [place] [address] Dec, [facility] [address] [id number] [address] [place] [address], [place] [address] Dec, [facility] [address] [id number] [address] [place] [address], [place] [address] 2013 [facility] [address] [id number] [address] [place] [address], [place] [address] 2013 [facility] [address] [id number] [facility] [place] [address] Dec, [facility] [address] [id number] [address] [place] [address], [place] [address] Dec, [facility] [address] [id number] [address] [place] [address], [place] [address] Dec, [facility] [address] [id number] [address] [place] [address], [place] [address] Nov, [facility] [address] [id number] [address] [place] [address], [place] [address] Nov, [facility] [address] [id number] [address] [place] [address], [place] [address] Nov, [facility] [address] [id number] [address] [place] [address], [place] [address] Nov, [facility] [address] [id number] [address] [place] [address], [place] [address] Nov, [facility] [address] [id number] [address] [place] [address], [place] [address] Nov, [facility] [address] [id number] [address] [place] [address], [place] [address] Nov, [facility] [address] [id number] [address] [place] [address], [place] [address] Nov, [facility] [address] [id number] [address] [place] [address], [place] [address] Nov, [facility] [address] [id number] [address] [place] [address], [place] [address] Nov, [facility] [address] [id number] [address] [place] [address], [place] [address] Nov, [facility] [address] [id number] [address] [place] [address], [place] [address] Nov, [facility] [address] [id number] [address] [place] [address], [place] [address] 15 Nov, 2013 [facility] [address] [id number] [address] [place] [address], [place] [address] 30 Oct, 2013 [facility] [address] [id number] [address] [place] [address], [place] [address] 30 Oct, 2013 [facility] [address] [id number] [address] [place] [address], [place] [address] Oct, [facility] [address] [id number] [address] [place] [address], [place] [address] Oct, [facility] [address] [id number] [address] [place] [address], [place] [address] Oct, [facility] [address] [id number] [address] [place] [address], [place] [address] Oct, [facility] [address] [id number] [address] [place] [address], [place] [address] Oct, [facility] [address] [id number] [address] [place] [address], [place] [address] 18 Oct, 2013 [facility] [address] [id number] [address] [place] [address], [place] [address] 17 Oct, 2013 [facility] [address] [id number] [address] [place] [address], [place] [address] 17 Oct, 2013 [facility] [address] [id number] [address] [place] [address], [place] [address] Oct, [facility] [address] [id number] [address] [place] [address], [place] [address] 03 Oct, 2013 [facility] [address] [id number] [address] [place] [address], [place] [address] 02 Oct, 2013 [facility] [address] [id number] [address] [place] [address], [place] [address] 02 Oct, 2013 [facility] [address] [id number] [address] [place] [address], [place] [address] 14 Sep, 2013 [facility] [address] [id number] [address] [place] [address], [place] [address] Sep, [facility] [address] [id number] [address] [place] [address], [place] [address] Sep, [facility] [address] [id number] [address] [place] [address], [place] [address] Sep, [facility] [address] [id number] [address] [place] [address], [place] [address] Sep, [facility] [address] [id number] [address] [place] [address], [place] [address] Sep, [facility] [address] [id number] [address] [place] [address], [place] [address] Sep, [facility] [address] [id number] [address] [place] [address], [place] [address] Sep, [facility] [address] [id number] [address] [place] [address], [place] [address] Sep, [facility] [address] [id number] [address] [place] [address], [place] [address] Sep, [facility] [address] [id number] [address] [place] [address], [place] [address] Aug, [facility] [address] [id number] [address] [place] [address], [place] [address] Aug, [facility] [address] [id number] [address] [place] [address], [place] [address] Aug, [facility] [address] [id number] [address] [place] [address], [place] [address] Aug, [facility] [address] [id number] [address] [place] [address], [place] [address] Aug, [facility] [address] [id number] [address] [place] [address], [place] [address] Aug, [facility] [address] [id number] [address] [place] [id number] 23 Aug, 2013 [facility] [address] [id number] [address] [place] [address], [place] [address] 23 Aug, 2013 [facility] [address] [id number] [address] [place] [address], [place] [address] 22 Aug, 2013 [facility] [address] [id number] [address] [place] [address] 22 Aug, 2013 [facility] [address] [id number] [address] [place] [id number] 18 Aug, 2013 [facility] [address] [id number] [address] [place] [address], [place] [address] 18 Aug, 2013 [facility] [address] [id number] [address] [place] [address] 18 Aug, 2013 [facility] [address] [id number] [address] [place] [address], [place] [address] 18 Aug, 2013 [facility] [address] [id number] [address] [place] [id number] 17 Aug, 2013 [facility] [address] [id number] [address] [place] [address], [place] [address] 14 Aug, 2013 [facility] [address] [id number] [address] [place] [id number] 14 Aug, 2013 [facility] [address] [id number] [address] [place] [address] Aug, [facility] [address] [id number] [address] [place] [address] 20 Jul, 2012 [facility] [address] [id number] [address] [place] [address], [place] [address] 19 Jul, 2012 [facility] [address] [id number] [address] [place] [address], [place] [address] 18 Jul, 2012 [facility] [address] [id number] [address] [place] [address] 11 Jul, 2012 [facility] [address] [id number] [facility] [place] [address] Jul, [facility] [address] [id number] [address] [place] [address], [place] [address] Jun, [facility] [address] [id number] [address] [place] [address], [place] [address] Jun, [facility] [address] [id number] [address] [place] [address], [place] [address] Jun, [facility] [address] [id number] [address] [place] [address], [place] [address] Jun, [facility] [address] [id number] [address] [place] [address], [place] [address] Jun, [facility] [address] [id number] [address] [place] [address], [place] [address] Jun, [facility] [address] [id number] [address] [place] [address], [place] [address] Jun, [facility] [address] [id number] [address] [place] [address], [place] [address] Jun, [facility] [address] [id number] [address] [place] [address], [place] [address] Jun, [facility] [address] [id number] [address] [place] [address], [place] [address] Jun, [facility] [address] [id number] [address] [place] [address], [place] [address] May, [facility] [address] [id number] [address] [place] [address], [place] [address] May, [facility] [address] [id number] [address] [place] [address], [place] [address] May, [facility] [address] [id number] [address] [place] [address], [place] [address] May, [facility] [address] [id number] [address] [place] [address], [place] [address] May, [facility] [address] [id number] [address] [place] [address], [place] [address] 16 May, 2013 [facility] [address] [id number] [address] [place] [address], [place] [address] May, [facility] [address] [id number] [address] [place] [address], [place] [address] May, [facility] [address] [id number] [address] [place] [address], [place] [address] May, [facility] [address] [id number] [address] [place] [address], [place] [address] Apr, [facility] [address] [id number] [address] [place] [address], [place] [address] Apr, [facility] [address] [id number] [address] [place] [address], [place] [address] Apr, [facility] [address] [id number] [address] [place] [address], [place] [address] Apr, [facility] [address] [id number] [address] [place] [address], [place] [address] Apr, [facility] [address] [id number] [address] [place] [address], [place] [address] Apr, [facility] [address] [id number] [address] [place] [address], [place] [address] Apr, [facility] [address] [id number] [address] [place] [address], [place] [address] March, [facility] [address] [id number] [address] [place] [address], [place] [address] Feb, [facility] [address] [id number] [address] [place] [address], [place] [address] Feb, [facility] [address] [id number] [address] [place] [address], [place] [address] Feb, [facility] [address] [id number] [address] [place] [address], [place] [address] 28 Jan, 2013 [facility] [address] [id number] [address] [place] [address], [place] [address] 21 Jan, 2013 [facility] [address] [id number] [address] [place] [address], [place] [address] 19 Jan, 2013 [facility] [address] [id number] [address] [place] [address], [place] [address] 14 Jan, 2013 [facility] [address] [id number] [address] [place] [address], [place] [address] 12 Jan, 2013 [facility] [address] [id number] [address] [place] [address], [place] [address] 08 Jan, 2013 [facility] [address] [id number] [address] [place] [address], [place] [address] 07 Jan, 2013 [facility] [address] [id number] [address] [place] [address], [place] [address] 04 Jan, 2013 [facility] [address] [id number] [address] [place] [address], [place] [address] 28 Dec, 2012 [facility] [address] [id number] [address] [place] [address], [place] [address] 25 Dec, 2012 [facility] [address] [id number] [address] [place] [address], [place] [address] 13 Dec, 2012 [facility] [address] [id number] [address] [place] [address], [place] [address] 11 Dec, 2012 [facility] [address] [id number] [address] [place] [address], [place] [address] 07 Dec, 2012 [facility] [address] [id number] [address] [place] [address], [place] [address] 06 Dec, 2012 [facility] [address] [id number] [address] [place] [address], [place] [address] 05 Dec, 2012 [facility] [address] [id number] [address] [place] [address], [place] [address] 31 Nov, 2012 [facility] [address] [id number] [address] [place] [address], [place] [address] 24 Nov, 2012 [facility] [address] [id number] [address] [place] [address], [place] [address] 18 Nov, 2012 [facility] [address] [id number] [address] [place] [address], [place] [address] 15 Nov, 2012 [facility] [address] [id number] [address] [place] [address], [place] [address] Nov, [facility] [address] [id number] [address] [place] [address], [place] [address] Nov, [facility] [address] [id number] [address] [place] [address], [place] [address] Nov, [facility] [address] [id number] [address] [place] [address], [place] [address] Oct, [facility] [address] [id number] [address] [place] [address], [place] [address] 31 Oct, 2012 [facility] [address] [id number] [address] [place] [address], [place] [address] Oct, [facility] [address] [id number] [address] [place] [address], [place] [address] Oct, [facility] [address] [id number] [address] [place] [address], [place] [address] 17 Oct, 2012 [facility] [address] [id number] [address] [place] [address], [place] [address] 17 Oct, 2012 [facility] [address] [id number] [address] [place] [address], [place] [address] Oct, [facility] [address] [id number] [address] [place] [address], [place] [address] 07 Oct, 2012 [facility] [address] [id number] [address] [place] [address], [place] [address] 05 Oct, 2012 [facility] [address] [id number] [address] [place] [address] Oct, [facility] [address] [id number] [address] [place] [address], [place] [address] Oct, [facility] [address] [id number] [address] [place] [address] Oct, [facility] [address] [id number] [address] [place] [address], [place] [address] Sep, [facility] [address] [id number] [address] [place] [address] Sep, [facility] [address] [id number] [address] [place] [address], [place] [address] Sep, [facility] [address] [id number] [address] [place] [address] Sep, [facility] [address] [id number] [address] [place] [address] Sep, [facility] [address] [id number] [address] [place] [address] Sep, [facility] [address] [id number] [address] [place] [address] Sep, [facility] [address] [id number] [address] [place] [address] Sep, [facility] [address] [id number] [address] [place] [address] Sep, [facility] [address] [id number] [address] [place] [address] Sep, [facility] [address] [id number] [address] [place] [address] Sep, [facility] [address] [id number] [address] [place] [address] Aug, [facility] [address] [id number] [address] [place] [address] Aug, [facility] [address] [id number] [address] [place] [address], [place] [address] Aug, [facility] [address] [id number] [address] [place] [address], [place] [address] Aug, [facility] [address] [id number] [address] [place] [address], [place] [address] Aug, [facility] [address] [id number] [address] [place] [address], [place] [address] Aug, [facility] [address] [id number] [address] [place] [address], [place] [address] Aug, [facility] [address] [id number] [address] [place] [address], [place] [address] Aug, [facility] [address] [id number] [address] [place] [address], [place] [address] Aug, [facility] [address] [id number] [address] [place] [address], [place] [address] Aug, [facility] [address] [id number] [address] [place] [address], [place] [address] 22 Jul, 2012 [facility] [address] [id number] [address] [place] [address], [place] [address] 20 Jul, 2012 [facility] [address] [id number] [address] [place] [address], [place] [address] 10 Jul, 2012 [facility] [address] [id number] [address] [place] [address], [place] [address] 06 Jul, 2012 [facility] [address] [id number] [address] [place] [address], [place] [address] 30 Jun, 2012 [facility] [address] [id number] [address] [place] [address], [place] [address] Jun, [facility] [address] [id number] [address] [place] [address], [place] [address] 16 Jun, 2012 [facility] [address] [id number] [address] [place] [address], [place] [address] Jun, [facility] [address] [id number] [address] [place] [address], [place] [address] Jun, [facility] [address] [id number] [address] [place] [address], [place] [address] Jun, [facility] [address] [id number] [address] [place] [address], [place] [address] Jun, [facility] [address] [id number] [address] [place] [address], [place] [address] May, [facility] [address] [id number] [address] [place] [address], [place] [address] May, [facility] [address] [id number] [address] [place] [address], [place] [address] May, [facility] [address] [id number] [address] [place] [address], [place] [address] May, [facility] [address] [id number] [address] [place] [address], [place] [address] May, [facility] [address] [id number] [address] [place] [address], [place] [address] Apr, [facility] [address] [id number] [address] [place] [address], [place] [address] Apr, [facility] [address] [id number] [address] [place] [address], [place] [address] Apr, [facility] [address] [id number] [address] [place] [address], [place] [address] Apr, [facility] [address] [id number] [address] [place] [address], [place] [address] Apr, [facility] [address] [id number] [address] [place] [address], [place] [address] March, [facility] [address] [id number] [address] [place] [address], [place] [address] March, [facility] [address] [id number] [address] [place] [address], [place] [address] March, [facility] [address] [id number] [address] [place] [address], [place] [address] March, [facility] [address] [id number] [address] [place] [address], [place] [address] March, [facility] [address] [id number] [address] [place] [address], [place] [address] March, [facility] [address] [id number] [address] [place] [address], [place] [address] March, [facility] [address] [id number] [address] [place] [address], [place] [address] March, [facility] [address] [id number] [address] [place] [address], [place] [address] March, [facility] [address] [id number] [address] [place] [address], [place] [address] March, [facility] [address] [id number] [address] [place] [address], [place] [address] 30 Feb, 2012 [facility] [address] [id number] [address] [place] [address], [place] [address] Feb, [facility] [address] [id number] [address] [place] [address], [place] [address] Feb, [facility] [address] [id number] [address] [place] [address], [place] [address] Feb, [facility] [address] [id number] [address] [place] [address], [place] [address] 17 Feb, 2012 [facility] [address] [id number] [address] [place] [address], [place] [address] Feb, [facility] [address] [id number] [address] [place] [address], [place] [address] Feb, [facility] [address] [id number] [address] [place] [address], [place] [address] Feb, [facility] [address] [id number] [address] [place] [address], [place] [address] Feb, [facility] [address] [id number] [address] [place] [address], [place] [address] Jan, [facility] [address] [id number] [address] [place] [address], [place] [address] Jan, [facility] [address] [id number] [address] [place] [address], [place] [address] Jan, [facility] [address] [id number] [address] [place] [address], [place] [address] Jan, [facility] [address] [id number] [address] [place] [address], [place] [address] Dec, [facility] [address] [id number] [address] [place] [address], [place] [address] Dec, [facility] [address] [id number] [address] [place] [address], [place] [address] Nov, [facility] [address] [id number] [address] [place] [address], [place] [address] Nov, [facility] [address] [id number] [address] [place] [address], [place] [address] Nov, [facility] [address] [id number] [address] [place] [address], [place] [address] Nov, [facility] [address] [id number] [address] [place] [address], [place] [address] Nov, [facility] [address] [id number] [address] [place] [address], [place] [address] Oct, [facility] [address] [id number] [address] [place] [address], [place] [address] Oct, [facility] [address] [id number] [address] [place] [address], [place] [address] Oct, [facility] [address] [id number] [address] [address] Oct, [facility] [address] [facility] [id number] [address] [place] [address] Oct, [facility] [address] [facility] [id number] [address] [place] [address] Oct, [facility] [address] [facility] [id number] [address] [place] [address] Oct, [facility] [address] [facility] [id number] [address] [place] [address] Oct, [facility] [address] [facility] [id number] [address] [place] [address] Sep, IMMUNIZATIONS No Known Immunizations SOCIAL HISTORY [...] fever, discharged 11/27/2017 11/26/2017 Hospitalization History [facility] [place]- Went Unrepsonsive, Hit head 2017 Hospitalization History ED [place]- Back Pain 05/05/201 8
--- OUTSIDE RECORDS SUMMARY | 2020-06-18 15:19 | XMS REPORT ---
Author Author Sanjuanita VEGA Organization [facility] Address [address] [place] [address] Care Team Providers Care Operating Room Assistant Name Role Phone SHANIQUE VEGA Unavailable PROBLEMS Type Condition ICD9-CM Code [id number] Code Onset Dates Condition S tatus SNOMED Code Problem Coronary artery disease I25.10 Active 88657805 Problem Hypertension I10 Active 1250479 3 Problem Other chronic pain G89.29 Active 8 9680364 Problem Hyperlipidemia E78.5 Active 31490 004 Problem Type 2 diabetes mellitus wit hout complication, without long-term current use of insulin E11.9 Active 502128918 Problem Low back pain M54.5 Active 658924 009 Problem Pharyngeal dysphagia R13.13 Active 36100817751039 Problem Anxiety F41.9 Active 07587694 Problem Peripheral vascular disease I73.9 Ac tive 235026856 Problem Suprapubic catheter Z93.59 Active 502970014 Problem Reactive depression F32.9 Active 24075691 Problem Neurogenic bladder N31.9 Active 3 46431761 Problem Ventral hernia without obstruction or gangrene K43 .9 Active 861607201 Problem Insomnia G47.00 Active 231787064 Problem Paroxysmal atrial fibrillation I48.0 Active 109642592 Problem Postmenopausal atrophic vaginitis N95.2 Active 98601312 Problem Encounter for suprapubic catheter care Z43.5 Active [id number] ALLERGIES No Information ENCOUNTERS Encounter Location Date Diagnosis Via [facility] [address] [place] [id number] Jun, [facility] [address] [facility] [id number] [address] [place] [id number] May, Strain of right shoulder, scherer bsequent encounter S46.911D and Anxiety F41.9 [facility] [address] [facility] [id number] [address] [place] [id number] Apr, Via [employer] [address] [place] [id number] 18 Apr, 2019 Strain of right shoulder, subsequent enc ounter S46.911D [facility] [address] [id number] [address] [place] [id number] 14 Apr, 2019 Strain of right shoulder, scherer bsequent encounter S46.911D and Anxiety F41.9 Via [facility] [address] [place] [id number] 13 Apr, 2019 Type 2 diabetes mellitus without complic ation, without long-term current use of insulin E11.9 and Neurogenic bladder N31.9 Via [facility] [address] [place] [id number] 11 Apr, 2019 Strain of right shoulder, subsequent enc ounter S46.911D ; History of GI bleed Z87.19 ; Neurogenic bladder N31.9 and Reactive depression F32.9 [place] [address] [id number] [address] [place] [id number] Apr, Acute pain of left shoulder M25.512 [place] [address] [id number] [address] [place] [phone] Apr, [place] [address] [id number] [address] [place] [id number] 06 Apr, 2019 Anxiety F41.9 and 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 [facility] [address] [place] [id number] March, Gastrointestinal hemorrhage associated w ith acute gastritis K29.01 [place] [address] [id number] [address] [place] [phone] March, Via [facility] [address] [place] [id number] March, Bronchitis J40 [facility] [address] [id number] [address] [place] [phone] March, Cough R05 [place] [address] [id number] [address] [place] [phone] March, Other chronic pain G89.29 [facility] [address] [id number] [address] [place] [id number] March, Anxiety F41.9 [facility] [address] [id number] [address] [place] [id number] March, [facility] [address] [id number] [address] [place] [id number] Feb, Other chronic pain G89.29 [facility] [address] [id number] [address] [place] [id number] Feb, Anxiety F41.9 [facility] [address] [id number] [address] [place] [id number] Feb, Other chronic pain G89.29 Via [facility] [address] [place] [id number] Feb, Neurogenic bladder N31.9 and Suprapubic catheter Z93.59 [facility] [address] [id number] [address] [place] [id number] Jan, Anxiety F41.9 [facility] [address] [id number] [address] [place] [id number] Dec, Anxiety F41.9 [facility] [address] [id number] [address] [place] [id number] Dec, Other chronic pain G89.29 an d Anxiety F41.9 [facility] [address] [id number] [address] [place] [id number] Dec, Via [facility] [address] [place] [id number] Dec, Neurogenic bladder N31.9 and Suprapubic catheter Z93.59 [facility] [address] [id number] [address] [place] [id number] Nov, Other chronic pain G89.29 an d Anxiety F41.9 [facility] [address] [id number] [address] [place] [id number] Nov, Via [employer] [address] [place] [id number] Nov, Suprapubic catheter Z93.59 [facility] [address] [id number] [address] [place] [id number] Oct, Other chronic pain G89.29 an d Anxiety F41.9 [facility] [address] [id number] [address] [place] [id number] Oct, [facility] [address] [id number] [address] [place] [id number] Oct, Suprapubic catheter Z93.59 [facility] [address] [id number] [address] [place] [id number] Oct, Via [employer] [address] [place] [id number] Oct, [facility] [address] [id number] [address] [place] [id number] Oct, Anxiety F41.9 [facility] [address] [id number] [address] [place] [id number] Oct, Anxiety F41.9 Via [facility] [employer] [address] [place] [id number] Oct, Other chronic pain G89.29 [facility] [address] [id number] [address] [place] [address] Sep, Other chronic pain G89.29 Via [employer] [facility] [address] [place] [id number] Sep, Suprapubic catheter Z93.59 and Cervicalg ia M54.2 [facility] [address] [id number] [address] [place] [id number] Sep, [facility] [address] [id number] [address] [place] [id number] Sep, [facility] [address] [id number] [address] [place] [id number] Sep, Via [facility] [address] [place] [id number] Aug, Cystitis N30.90 [facility] [address] [id number] [address] [place] [id number] Aug, [facility] [address] [id number] [address] [place] [id number] Aug, Other chronic pain G89.29 [facility] [address] [id number] [address] [place] [phone] Aug, Via [facility] [address] [place] [id number] Aug, Encounter for suprapubic catheter care Z 43.5 [facility] [address] [id number] [address] [place] [id number] Jul, Via [facility] [address] [place] [id number] Jul, [facility] [address] [id number] [address] [place] [id number] Jul, Other chronic pain G89.29 [facility] [address] [id number] [address] [place] [id number] Jul, [facility] [address] [id number] [address] [place] [id number] Jul, Via [facility] [address] [place] [id number] Jun, Postmenopausal atrophic vaginitis N95.2 [facility] [address] [id number] [address] [place] [id number] Jun, Other chronic pain G89.29 [facility] [address] [id number] [address] [place] [id number] Jun, Via [employer] [address] [place] [id number] May, Anxiety F41.9 ; Type 2 diabetes mellitus without complication, without long-term current use of insulin E11.9 ; Hypertension I10 ; Low back pain M54.5 ; Paroxysmal atrial fibrillation I48.0 and 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 [facility] [address] [id number] [address] [place] [id number] May, Other chronic pain G89.29 Via [facility] [employer] [address] [place] [id number] May, Low back pain M54.5 [facility] [address] [id number] [address] [place] [id number] May, [facility] [address] [id number] [address] [place] [id number] Apr, Other chronic pain G89.29 [facility] [address] [id number] [address] [place] [phone] Apr, [place] [address] [id number] [address] [place] [id number] Apr, Via [employer] [address] [place] [id number] Apr, Closed compression fracture of L3 lumbar vertebra with routine healing, subsequent encounter S32.030D Via [facility] [address] [place] [id number] Apr, Low back pain M54.5 Via [facility] [address] [place] [id number] Apr, Coccydynia M53.3 [facility] [address] [id number] [address] [place] [id number] March, [facility] [address] [id number] [address] [place] [id number] March, Other chronic pain G89.29 [facility] [address] [id number] [address] [place] [id number] March, [facility] [address] [id number] [address] [place] [id number] March, [facility] [address] [id number] [address] [place] [id number] Feb, [facility] [address] [id number] [address] [place] [id number] Feb, Other chronic pain G89.29 Via [facility] [address] [place] [id number] Feb, Other chronic pain G89.29 and Anxiety F4 1.9 [facility] [address] [id number] [address] [place] [id number] Feb, [facility] [address] [id number] [address] [place] [id number] Jan, [facility] [address] [facility] [id number] [address] [place] [phone] Jan, [facility] [address] [facility] [id number] [address] [place] [phone] Jan, [facility] [address] [facility] [id number] [address] [place] [id number] Jan, [facility] [address] [id number] [address] [place] [id number] Dec, Via [facility] [employer] [address] [place] [id number] Dec, Peripheral vascular disease I73.9 ; 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 ; Other chronic pain G89.29 ; Anxiety F41.9 ; Reactive depression F32.9 ; Insomnia G47.00 and Type 2 diabetes mellitus without complication, without long-term current use of insulin E11.9 [facility] [place] [address] [id number] [place] [address] Nov, [facility] [address] [id number] [place] [id number] Nov, Anxiety F41.9 [facility] [address] [facility] [id number] [address] [place] [id number] Nov, [facility] [address] [id number] [place] [id number] Nov, Anxiety F41.9 [facility] [employer] [address] [place] [id number] Nov, Status post surgery Z98.890 ; Confused R 41.0 ; Anxiety F41.9 and Other chronic pain G89.29 [facility] [address] [id number] [place] [id number] Nov, Other chronic pain G89.29 [facility] [address] [id number] [address] [place] [id number] Oct, [facility] [address] [id number] [place] [id number] Oct, Other chronic pain G89.29 [facility] [address] [facility] [id number] [address] [place] [id number] Oct, Anxiety F41.9 [facility] [address] [id number] [place] [id number] Sep, Other chronic pain G89.29 [facility] [address] [id number] [place] [id number] Sep, Via [facility] [address] [place] [id number] Aug, Dysuria R30.0 and Anxiety F41.9 [facility] [address] [id number] [address] [place] [id number] Aug, [facility] [address] [id number] [place] [id number] Aug, Other chronic pain G89.29 [facility] [address] [id number] [address] [place] [id number] Jul, Other chronic pain G89.29 [facility] [address] [id number] [place] [id number] Jun, [facility] [address] [id number] [id number] Jun, Other chronic pain G89.29 [facility] [address] [id number] [address] [place] [phone] Jun, [facility] [address] [id number] [address] [place] [address] May, Other chronic pain G89.29 [facility] [address] [id number] [address] [place] [id number] Apr, Other chronic pain G89.29 [facility] [address] [place] [id number] Apr, Reactive depression F32.9 and Pharyngeal dysphagia R13.13 [facility] [address] [id number] [address] [place] [id number] Apr, Urinary tract infection with out hematuria, site unspecified N39.0 [facility] [address] [facility] [id number] [address] [place] [address] March, Other chronic pain G89.29 [facility] [address] [id number] [address] [place] [id number] Feb, Other chronic pain G89.29 [facility] [address] [facility] [id number] [address] [place] [id number] Feb, [facility] [address] [id number] [id number] Feb, [facility] [employer] [address] [place] [id number] Feb, Dysuria R30.0 and Ventral hernia without obstruction or gangrene K43.9 [facility] [address] [id number] [address] [place] [phone] Jan, Other chronic pain G89.29 [facility] [address] [id number] [id number] Dec, Other chronic pain G89.29 [facility] [address] [facility] [id number] [address] [place] [address] Nov, Other chronic pain G89.29 Via [facility] [address] [place] [id number] Nov, Lymphadenitis I88.9 [facility] [address] [id number] [address] [place] [phone] Nov, Other chronic pain G89.29 [facility] [address] [id number] [address] [place] [address] Nov, [facility] [id number] [place] [id number] Nov, Other chronic pain G89.29 Via [facility] [address] [place] [id number] Oct, Low back pain M54.5 ; Hypertension I10 a nd Type 2 diabetes mellitus without complication, without long-term current use of insulin E11.9 [facility] [address] [id number] [address] [place] [id number] Oct, [facility] [address] [id number] [address] [place] [id number] Oct, [facility] [address] [id number] [address] [place] [phone] Oct, [facility] [address] [id number] [address] [place] [phone] Oct, [facility] [address] [id number] [address] [place] [id number] Sep, [facility] [address] [id number] [address] [place] [phone] Sep, [facility] [address] [id number] [address] [place] [id number] Aug, Other chronic pain G89.29 [facility] [address] [id number] [address] [place] [id number] Jul, [facility] [address] [id number] [address] [place] [id number] Jul, [facility] [address] [id number] [address] [place] [id number] Jul, [facility] [address] [id number] [address] [place] [phone] Jun, [facility] [address] [id number] [address] [place] [phone] Jun, Via [facility] [address] [facility] [place] [id number] Jun, Low back pain M54.5 ; Other chronic pain G89.29 and Coronary artery disease I25.10 [facility] [address] [id number] [address] [place] [id number] Jun, [facility] [address] [id number] [address] [place] [id number] May, [facility] [address] [id number] [address] [place] [phone] May, [facility] [address] [id number] [address] [place] [id number] May, Other chronic pain G89.29 [facility] [address] [id number] [address] [place] [id number] May, [facility] [address] [id number] [address] [place] [address] Apr, [facility] [address] [id number] [address] [place] [id number] 17 Apr, 2016 Acute cystitis without hemat uria N30.00 [facility] [address] [id number] [address] [place] [id number] 16 Apr, 2016 Acute cystitis without hemat uria N30.00 ; Coronary artery disease I25.10 ; Low back pain M54.5 and Other chronic pain G89.29 [facility] [address] [id number] [address] [place] [id number] Apr, Other chronic pain G89.29 [facility] [address] [id number] [address] [place] [id number] March, Other chronic pain G89.29 [facility] [address] [id number] [address] [place] [id number] 18 Feb, 2016 [facility] [address] [id number] [address] [place] [id number] 15 Feb, 2016 Arthritis M19.90 [facility] [address] [id number] [address] [place] [phone] Feb, [facility] [address] [id number] [address] [place] [id number] 30 Jan, 2016 [facility] [address] [id number] [address] [place] [id number] Jan, [facility] [address] [id number] [address] [place] [id number] Jan, Other chronic pain G89.29 [facility] [address] [id number] [address] [place] [id number] Jan, Hypertension I10 ; Coronary artery disease I25.10 and Insomnia G47.00 [facility] [address] [id number] [address] [place] [id number] Jan, [facility] [address] [id number] [address] [place] [id number] Dec, Right hip pain M25.551 [facility] [address] [id number] [address] [place] [phone] Dec, [facility] [address] [id number] [address] [place] [id number] Dec, [facility] [address] [id number] [address] [place] [id number] Dec, [facility] [address] [id number] [address] [place] [id number] Dec, Other chronic pain G89.29 [facility] [address] [id number] [address] [place] [id number] Dec, [facility] [address] [facility] [id number] [address] [place] [id number] Nov, [facility] [address] [id number] [address] [place] [id number] Nov, Other chronic pain G89.29 [facility] [address] [id number] [address] [place] [id number] Nov, Right hip pain M25.551 and C oronary artery disease I25.10 [facility] [address] [id number] [address] [place] [id number] Nov, Other chronic pain G89.29 [facility] [address] [facility] [id number] [address] [place] [id number] Oct, [facility] [address] [facility] [id number] [address] [place] [id number] Oct, [facility] [address] [facility] [id number] [address] [place] [id number] Sep, [facility] [address] [facility] [id number] [address] [place] [id number] Sep, [facility] [address] [facility] [id number] [address] [place] [id number] Aug, [facility] [address] [facility] [id number] [address] [place] [id number] Aug, Hypertension I10 ; Coronary artery disease I25.10 and Arthritis M19.90 [facility] [address] [id number] [address] [place] [id number] Jun, [facility] [address] [facility] [id number] [address] [place] [phone] Jun, Essential hypertension, jayson gn 401.1 ; Other chronic pain 338.29 and Chronic airway obstruction, not elsewhere classified [address] [facility] [place] [address] [id number] [address] [place] [address], [place] [id number] Jun, [facility] [facility] [place] [address] [id number] [address] [place] [address], [place] [address] Jun, [facility] [place] [address] [id number] [address] [place] [address], [place] [address] Jun, [facility] [place] [address] [id number] [address] [place] [address], [place] [address] May, [facility] [place] [address] [id number] [address] [place] [address], [place] [address] May, [facility] [place] [address] [id number] [address] [place] [address] Apr, [facility] [place] [address] [id number] [address] [place] [address], [place] [address] Apr, [facility] [place] [address] [id number] [address] [place] [address] Apr, [facility] [address] [id number] [address] [place] [address] March, [facility] [place] [address] [id number] [address] [place] [address] March, [facility] [address] [id number] [address] [place] [address] March, [facility] [address] [id number] [address] [place] [address] March, [facility] [address] [id number] [address] [place] [address], [place] [address] March, Sialadenitis 527.2 [facility] [address] [id number] [address] [place] [address], [place] [address] Feb, [facility] [address] [id number] [address] [place] [address], [place] [address] Feb, [facility] [address] [id number] [address] [place] [address], [place] [address] 29 Feb, 2015 [facility] [address] [id number] [address] [place] [address], [place] [address] 14 Feb, 2015 [facility] [address] [id number] [address] [place] [address], [place] [address] 13 Feb, 2015 [facility] [address] [id number] [address] [place] [address], [place] [address] 19 Jan, 2015 [facility] [address] [id number] [address] [place] [address], [place] [address] Jan, [facility] [address] [id number] [address] [place] [address], [place] [address] Jan, [facility] [address] [id number] [address] [place] [address], [place] [address] Jan, [facility] [address] [id number] [address] [place] [address], [place] [address] Jan, [facility] [address] [id number] [address] [place] [address], [place] [address] Jan, [facility] [address] [id number] [address] [place] [address], [place] [address] Dec, 2014 [facility] [address] [id number] [address] [place] [address], [place] [address] Dec, 2014 [facility] [address] [id number] [address] [place] [address], [place] [address] Dec, 2014 [facility] [address] [id number] [address] [place] [address], [place] [address] Dec, 2014 [facility] [address] [id number] [address] [place] [address], [place] [address] Dec, 2014 [facility] [address] [id number] [address] [place] [address], [place] [address] Dec, 2014 [facility] [address] [id number] [address] [place] [address], [place] [address] Nov, [facility] [address] [id number] [address] [place] [address], [place] [address] Nov, [facility] [address] [id number] [address] [place] [address], [place] [address] Nov, [facility] [address] [id number] [address] [place] [address], [place] [address] Nov, [facility] [address] [id number] [address] [place] [address], [place] [address] Nov, [facility] [address] [id number] [address] [place] [address], [place] [address] Nov, [facility] [address] [id number] [address] [place] [address], [place] [address] Nov, [facility] [address] [id number] [address] [place] [address], [place] [address] Nov, [facility] [address] [id number] [address] [place] [address], [place] [address] Nov, [facility] [address] [id number] [address] [place] [address], [place] [address] Nov, [facility] [address] [id number] [address] [place] [address], [place] [address] Nov, [facility] [address] [id number] [address] [place] [address], [place] [address] Nov, [facility] [address] [id number] [address] [place] [address], [place] [address] Nov, [facility] [address] [id number] [address] [place] [address], [place] [address] Nov, [facility] [address] [id number] [address] [place] [address], [place] [address] Oct, [facility] [address] [id number] [address] [place] [address], [place] [address] Oct, [facility] [address] [id number] [address] [place] [address], [place] [address] 19 Oct, 2014 [facility] [address] [id number] [address] [place] [address], [place] [address] 18 Oct, 2014 [facility] [address] [id number] [address] [place] [address], [place] [address] 18 Oct, 2014 [facility] [address] [id number] [address] [place] [address], [place] [address] Oct, [facility] [address] [id number] [address] [place] [address], [place] [address] 17 Oct, 2014 [facility] [address] [id number] [address] [place] [address], [place] [address] Oct, [facility] [address] [id number] [address] [place] [address], [place] [address] Oct, [facility] [address] [id number] [address] [place] [address], [place] [address] Sep, [facility] [address] [id number] [address] [place] [address], [place] [address] Sep, [facility] [address] [id number] [address] [place] [address], [place] [address] Sep, [facility] [address] [id number] [address] [place] [address], [place] [address] Sep, [facility] [address] [id number] [address] [place] [address], [place] [address] Sep, [facility] [address] [id number] [address] [place] [address], [place] [address] Sep, [facility] [address] [id number] [address] [place] [address], [place] [address] Sep, [facility] [address] [id number] [address] [place] [address], [place] [address] Sep, [facility] [address] [id number] [address] [place] [address], [place] [address] Sep, [facility] [address] [id number] [address] [place] [address], [place] [address] Sep, [facility] [address] [id number] [address] [place] [address], [place] [address] Sep, [facility] [address] [id number] [address] [place] [address], [place] [address] Sep, [facility] [address] [id number] [address] [place] [address], [place] [address] Aug, [facility] [address] [id number] [address] [place] [address], [place] [address] Aug, [facility] [address] [id number] [address] [place] [address], [place] [address] Aug, [facility] [address] [id number] [address] [place] [address], [place] [address] Aug, [facility] [address] [id number] [address] [place] [address], [place] [address] Aug, [facility] [address] [id number] [address] [place] [address], [place] [address] Aug, [facility] [address] [id number] [address] [place] [address], [place] [address] Aug, [facility] [address] [id number] [address] [place] [address], [place] [address] Aug, [facility] [address] [id number] [address] [place] [address], [place] [address] 30 Jul, 2014 [facility] [address] [id number] [address] [place] [address], [place] [address] 30 Jul, 2014 [facility] [address] [id number] [address] [place] [address], [place] [address] 30 Jul, 2013 [facility] [address] [id number] [address] [place] [address], [place] [address] 30 Jul, 2013 [facility] [address] [id number] [address] [place] [address] [place] [address] Jul, [facility] [address] [id number] [facility] [place] [address] 25 Jul, 2014 [facility] [address] [id number] [address] [place] [address], [place] [address] Jul, [facility] [address] [id number] [address] [place] [address], [place] [address] Jul, [facility] [address] [id number] [address] [place] [address], [place] [address] Jul, [facility] [address] [id number] [address] [place] [address], [place] [address] Jul, [facility] [address] [id number] [address] [place] [address], [place] [address] Jun, [facility] [address] [id number] [address] [place] [address], [place] [address] Jun, [facility] [address] [id number] [address] [place] [address], [place] [address] Jun, [facility] [address] [id number] [address] [place] [address], [place] [address] Jun, [facility] [address] [id number] [address] [place] [address], [place] [address] Jun, [facility] [address] [id number] [address] [place] [address], [place] [address] Jun, [facility] [address] [id number] [address] [place] [address], [place] [address] Jun, [facility] [address] [id number] [address] [place] [address], [place] [address] Jun, [facility] [address] [id number] [address] [place] [address], [place] [address] Jun, [facility] [address] [id number] [address] [place] [address], [place] [address] Jun, [facility] [address] [id number] [facility] [place] [address] Jun, [facility] [address] [id number] [facility] [place] [address] Jun, [facility] [address] [id number] [facility] [place] [address] Jun, [facility] [address] [id number] [address] [place] [address], [place] [address] Jun, [facility] [address] [id number] [address] [place] [address], [place] [address] Jun, [facility] [address] [id number] [address] [place] [address], [place] [address] Jun, [facility] [address] [id number] [address] [place] [address], [place] [address] Jun, [facility] [address] [id number] [address] [place] [address], [place] [address] Jun, [facility] [address] [id number] [address] [place] [address], [place] [address] Jun, [facility] [address] [id number] [address] [place] [address], [place] [address] Jun, [facility] [address] [id number] [address] [place] [address], [place] [address] Jun, [facility] [address] [id number] [address] [place] [address], [place] [address] Jun, [facility] [address] [id number] [address] [place] [address], [place] [address] May, [facility] [address] [id number] [address] [place] [address], [place] [address] May, [facility] [address] [id number] [address] [place] [address], [place] [address] May, [facility] [address] [id number] [address] [place] [address], [place] [address] May, [facility] [address] [id number] [facility] [place] [address] May, [facility] [address] [id number] [facility] [place] [address] May, [facility] [address] [id number] [facility] [place] [address] May, 2013 [facility] [address] [id number] [address] [place] [address], [place] [address] May, 2013 [facility] [address] [id number] [facility] [place] [address] May, [facility] [address] [id number] [address] [place] [address], [place] [address] May, [facility] [address] [id number] [address] [place] [address], [place] [address] May, [facility] [address] [id number] [address] [place] [address], [place] [address] May, [facility] [address] [id number] [address] [place] [address], [place] [address] May, [facility] [address] [id number] [address] [place] [address], [place] [address] Apr, [facility] [address] [id number] [address] [place] [address], [place] [address] Apr, [facility] [address] [id number] [address] [place] [address], [place] [address] Apr, [facility] [address] [id number] [address] [place] [address], [place] [address] Apr, [facility] [address] [id number] [address] [place] [address], [place] [address] Apr, [facility] [address] [id number] [address] [place] [address], [place] [address] Apr, [facility] [address] [id number] [facility] [place] [address] Apr, [facility] [address] [id number] [address] [place] [address], [place] [address] Apr, [facility] [address] [id number] [facility] [place] [address] Apr, [facility] [address] [id number] [address] [place] [address], [place] [address] March, [facility] [address] [id number] [address] [place] [address], [place] [address] March, [facility] [address] [id number] [address] [place] [address], [place] [address] March, [facility] [address] [id number] [address] [place] [address], [place] [address] March, [facility] [address] [id number] [address] [place] [address], [place] [address] March, [facility] [address] [id number] [address] [place] [address], [place] [address] March, [facility] [address] [id number] [address] [place] [address], [place] [address] March, [facility] [address] [id number] [address] [place] [address], [place] [address] March, [facility] [address] [id number] [address] [place] [address], [place] [address] March, [facility] [address] [id number] [address] [place] [address], [place] [address] March, [facility] [address] [id number] [address] [place] [address], [place] [address] March, [facility] [address] [id number] [address] [place] [address], [place] [address] March, [facility] [address] [id number] [address] [place] [address], [place] [address] March, [facility] [address] [id number] [address] [place] [address], [place] [address] March, [facility] [address] [id number] [address] [place] [address], [place] [address] March, [facility] [address] [id number] [address] [place] [address], [place] [address] March, [facility] [address] [id number] [address] [place] [address], [place] [address] March, [facility] [address] [id number] [address] [place] [address], [place] [address] March, [facility] [address] [id number] [address] [place] [address], [place] [address] March, [facility] [address] [id number] [address] [place] [address], [place] [address] March, [facility] [address] [id number] [address] [place] [address], [place] [address] Feb, [facility] [address] [id number] [address] [place] [address], [place] [address] Feb, [facility] [address] [id number] [address] [place] [address], [place] [address] Feb, [facility] [address] [id number] [address] [place] [address], [place] [address] Feb, [facility] [address] [id number] [address] [place] [address], [place] [address] Feb, [facility] [address] [id number] [address] [place] [address], [place] [address] Feb, [facility] [address] [id number] [address] [place] [address], [place] [address] Feb, [facility] [address] [id number] [address] [place] [address], [place] [address] Feb, [facility] [address] [id number] [address] [place] [address], [place] [address] Jan, [facility] [address] [id number] [facility] [place] [address] Jan, [facility] [address] [id number] [address] [place] [address], [place] [address] Jan, [facility] [address] [id number] [address] [place] [address], [place] [address] Jan, [facility] [address] [id number] [address] [place] [address], [place] [address] Jan, [facility] [address] [id number] [address] [place] [address], [place] [address] Jan, [facility] [address] [id number] [address] [place] [address], [place] [address] Jan, [facility] [address] [id number] [address] [place] [address], [place] [address] Jan, [facility] [address] [id number] [address] [place] [address], [place] [address] Jan, [facility] [address] [id number] [address] [place] [address], [place] [address] Jan, [facility] [address] [id number] [address] [place] [address], [place] [address] Dec, [facility] [address] [id number] [address] [place] [address], [place] [address] Dec, [facility] [address] [id number] [address] [place] [address], [place] [address] Dec, [facility] [address] [id number] [address] [place] [address], [place] [address] 2013 [facility] [address] [id number] [address] [place] [address], [place] [address] 2013 [facility] [address] [id number] [address] [place] [address], [place] [address] 13 Dec, 2013 [facility] [address] [id number] [address] [place] [address], [place] [address] Dec, [facility] [address] [id number] [address] [place] [address], [place] [address] Dec, [facility] [address] [id number] [address] [place] [address], [place] [address] Nov, [facility] [address] [id number] [address] [place] [address], [place] [address] Nov, [facility] [address] [id number] [address] [place] [address], [place] [address] Nov, [facility] [address] [id number] [address] [place] [address], [place] [address] Nov, [facility] [address] [id number] [address] [place] [address], [place] [address] Nov, [facility] [address] [id number] [address] [place] [address], [place] [address] Nov, [facility] [address] [id number] [address] [place] [address], [place] [address] Nov, [facility] [address] [id number] [address] [place] [address], [place] [address] Nov, [facility] [address] [id number] [address] [place] [address], [place] [address] Nov, [facility] [address] [id number] [address] [place] [address], [place] [address] Nov, [facility] [address] [id number] [address] [place] [address], [place] [address] Nov, [facility] [address] [id number] [address] [place] [address], [place] [address] Nov, [facility] [address] [id number] [address] [place] [address], [place] [address] Nov, [facility] [address] [id number] [address] [place] [address], [place] [address] 30 Oct, 2013 [facility] [address] [id number] [address] [place] [address], [place] [address] 30 Oct, 2013 [facility] [address] [id number] [address] [place] [address], [place] [address] Oct, [facility] [address] [id number] [address] [place] [address], [place] [address] Oct, [facility] [address] [id number] [address] [place] [address], [place] [address] Oct, [facility] [address] [id number] [address] [place] [address], [place] [address] Oct, [facility] [address] [id number] [address] [place] [address], [place] [address] Oct, [facility] [address] [id number] [address] [place] [address], [place] [address] Oct, [facility] [address] [id number] [address] [place] [address], [place] [address] Oct, [facility] [address] [id number] [address] [place] [address], [place] [address] Oct, [facility] [address] [id number] [address] [place] [address], [place] [address] Oct, [facility] [address] [id number] [address] [place] [address], [place] [address] Oct, [facility] [address] [id number] [address] [place] [address], [place] [address] Oct, [facility] [address] [id number] [address] [place] [address], [place] [address] Oct, [facility] [address] [id number] [address] [place] [address], [place] [address] 14 Sep, 2013 [facility] [address] [id number] [address] [place] [address], [place] [address] 14 Sep, 2013 [facility] [address] [id number] [address] [place] [address], [place] [address] Sep, [facility] [address] [id number] [address] [place] [address], [place] [address] Sep, [facility] [address] [id number] [address] [place] [address], [place] [address] Sep, [facility] [address] [id number] [address] [place] [address], [place] [address] Sep, [facility] [address] [id number] [address] [place] [address], [place] [address] Sep, [facility] [address] [id number] [address] [place] [address], [place] [address] Sep, [facility] [address] [id number] [address] [place] [address], [place] [address] Sep, [facility] [address] [id number] [address] [place] [address], [place] [address] Sep, [facility] [address] [id number] [address] [place] [address], [place] [address] Aug, [facility] [address] [id number] [address] [place] [address], [place] [address] Aug, [facility] [address] [id number] [address] [place] [address] Aug, [facility] [address] [id number] [address] [place] [address], [place] [address] Aug, [facility] [address] [id number] [address] [place] [address] Aug, [facility] [address] [id number] [address] [place] [address], [place] [address] Aug, [facility] [address] [id number] [address] [place] [address], [place] [address] Aug, [facility] [address] [id number] [address] [place] [address] Aug, [facility] [address] [id number] [address] [place] [address], [place] [address] 22 Aug, 2012 [facility] [address] [id number] [address] [place] [address], [place] [address] 22 Aug, 2013 [facility] [address] [id number] [address] [place] [address], [place] [address] 18 Aug, 2013 [facility] [address] [id number] [address] [place] [address], [place] [address] 18 Aug, 2013 [facility] [address] [id number] [address] [place] [address], [place] [address] 18 Aug, 2013 [facility] [address] [id number] [address] [place] [address], [place] [address] 18 Aug, 2013 [facility] [address] [id number] [address] [place] [address], [place] [address] 17 Aug, 2013 [facility] [address] [id number] [address] [place] [address], [place] [address] 14 Aug, 2013 [facility] [address] [id number] [address] [place] [address], [place] [address] 14 Aug, 2013 [facility] [address] [id number] [address] [place] [address], [place] [address] 01 Aug, 2013 [facility] [address] [id number] [address] [place] [address], [place] [address] 20 Jul, 2012 [facility] [address] [id number] [address] [place] [address], [place] [address] 19 Jul, 2012 [facility] [address] [id number] [address] [place] [address], [place] [address] 18 Sep, 2012 [facility] [address] [id number] [address] [place] [address], [place] [address] 11 Jul, 2012 [facility] [address] [id number] [address] [place] [address], [place] [address] 11 Jul, 2012 [facility] [address] [id number] [address] [place] [address] [place] [address] Jun, [facility] [address] [id number] [facility] [place] [address] Jun, [facility] [address] [id number] [address] [place] [address], [place] [address] Jun, [facility] [address] [id number] [address] [place] [address], [place] [address] Jun, [facility] [address] [id number] [address] [place] [address], [place] [address] Jun, [facility] [address] [id number] [address] [place] [address], [place] [address] Jun, [facility] [address] [id number] [address] [place] [address], [place] [address] Jun, [facility] [address] [id number] [address] [place] [address], [place] [address] Jun, [facility] [address] [id number] [address] [place] [address], [place] [address] Jun, [facility] [address] [id number] [address] [place] [address], [place] [address] Jun, [facility] [address] [id number] [address] [place] [address], [place] [address] May, [facility] [address] [id number] [address] [place] [address], [place] [address] May, [facility] [address] [id number] [address] [place] [address], [place] [address] May, [facility] [address] [id number] [address] [place] [address], [place] [address] May, [facility] [address] [id number] [address] [place] [address], [place] [address] May, [facility] [address] [id number] [address] [place] [address], [place] [address] May, [facility] [address] [id number] [address] [place] [address], [place] [address] May, [facility] [address] [id number] [address] [place] [address], [place] [address] May, [facility] [address] [id number] [address] [place] [address], [place] [address] May, [facility] [address] [id number] [address] [place] [address], [place] [address] Apr, [facility] [address] [id number] [address] [place] [address], [place] [address] Apr, [facility] [address] [id number] [address] [place] [address], [place] [address] Apr, [facility] [address] [id number] [address] [place] [address], [place] [address] Apr, [facility] [address] [id number] [address] [place] [address], [place] [address] Apr, [facility] [address] [id number] [address] [place] [address], [place] [address] Apr, [facility] [address] [id number] [address] [place] [address], [place] [address] Apr, [facility] [address] [id number] [address] [place] [address], [place] [address] March, [facility] [address] [id number] [address] [place] [address], [place] [address] Feb, [facility] [address] [id number] [address] [place] [address], [place] [address] Feb, [facility] [address] [id number] [address] [place] [address], [place] [address] Feb, [facility] [address] [id number] [address] [place] [address], [place] [address] Jan, [facility] [address] [id number] [address] [place] [address], [place] [address] Jan, 2013 [facility] [address] [id number] [address] [place] [address], [place] [address] 19 Jan, 2013 [facility] [address] [id number] [address] [place] [address], [place] [address] 14 Jan, 2013 [facility] [address] [id number] [address] [place] [address], [place] [address] 12 Jan, 2013 [facility] [address] [id number] [address] [place] [address], [place] [address] 08 Jan, 2013 [facility] [address] [id number] [address] [place] [address], [place] [address] 07 Jan, 2013 [facility] [address] [id number] [address] [place] [address], [place] [address] 04 Jan, 2013 [facility] [address] [id number] [address] [place] [address], [place] [address] 28 Dec, 2012 [facility] [address] [id number] [address] [place] [address], [place] [address] 25 Dec, 2012 [facility] [address] [id number] [address] [place] [address], [place] [address] 13 Dec, 2012 [facility] [address] [id number] [address] [place] [address], [place] [address] Dec, [facility] [address] [id number] [address] [place] [address], [place] [address] 07 Dec, 2012 [facility] [address] [id number] [address] [place] [address], [place] [address] 06 Dec, 2012 [facility] [address] [id number] [address] [place] [address], [place] [address] 05 Dec, 2012 [facility] [address] [id number] [address] [place] [address], [place] [address] 31 Nov, 2012 [facility] [address] [id number] [address] [place] [address], [place] [address] 24 Nov, 2012 [facility] [address] [id number] [address] [place] [address], [place] [address] 18 Nov, 2012 [facility] [address] [id number] [address] [place] [address], [place] [address] 15 Nov, 2012 [facility] [address] [id number] [address] [place] [address], [place] [address] 10 Nov, 2012 [facility] [address] [id number] [address] [place] [address], [place] [address] 10 Nov, 2012 [facility] [address] [id number] [address] [place] [address], [place] [address] 02 Nov, 2012 [facility] [address] [id number] [address] [place] [address], [place] [address] Oct, [facility] [address] [id number] [address] [place] [address], [place] [address] Oct, [facility] [address] [id number] [address] [place] [address], [place] [address] Oct, [facility] [address] [id number] [address] [place] [address], [place] [address] Oct, [facility] [address] [id number] [address] [place] [address], [place] [address] Oct, [facility] [address] [id number] [address] [place] [address], [place] [address] 17 Oct, 2012 [facility] [address] [id number] [address] [place] [address], [place] [address] Oct, [facility] [address] [id number] [address] [place] [address], [place] [address] 07 Oct, 2012 [facility] [address] [id number] [address] [place] [address], [place] [address] 05 Oct, 2012 [facility] [address] [id number] [address] [place] [address], [place] [address] 05 Oct, 2012 [facility] [address] [id number] [address] [place] [address] [address] Oct, [facility] [address] [id number] [address] [place] [address], [place] [address] Oct, [facility] [address] [id number] [address] [place] [address], [place] [address] Sep, [facility] [address] [id number] [address] [place] [address], [place] [address] Sep, [facility] [address] [id number] [address] [place] [address], [place] [address] Sep, [facility] [address] [id number] [address] [place] [address], [place] [address] Sep, [facility] [address] [id number] [address] [place] [address], [place] [address] Sep, [facility] [address] [id number] [address] [place] [address], [place] [address] Sep, [facility] [address] [id number] [address] [place] [address], [place] [address] Sep, [facility] [address] [id number] [address] [place] [address], [place] [address] Sep, [facility] [address] [id number] [address] [place] [address], [place] [address] Sep, [facility] [address] [id number] [address] [place] [address] Sep, [facility] [address] [id number] [address] [place] [address] Sep, [facility] [address] [id number] [address] [place] [address], [place] [address] Aug, [facility] [address] [id number] [address] [place] [address] Aug, [facility] [address] [id number] [address] [place] [address] Aug, [facility] [address] [id number] [address] [place] [address], [place] [address] Aug, [facility] [address] [id number] [address] [place] [address], [place] [address] Aug, [facility] [address] [id number] [address] [place] [address], [place] [address] Aug, [facility] [address] [id number] [address] [place] [address], [place] [address] Aug, [facility] [address] [id number] [address] [place] [address], [place] [address] Aug, [facility] [address] [id number] [address] [place] [address], [place] [address] Aug, [facility] [address] [id number] [address] [place] [address], [place] [address] Aug, [facility] [address] [id number] [address] [place] [address], [place] [address] Jul, [facility] [address] [id number] [address] [place] [address], [place] [address] 20 Jul, 2012 [facility] [address] [id number] [address] [place] [address], [place] [address] Jul, [facility] [address] [id number] [address] [place] [address], [place] [address] 06 Jul, 2012 [facility] [address] [id number] [address] [place] [address], [place] [address] 30 Jun, 2012 [facility] [address] [id number] [address] [place] [address], [place] [address] Jun, [facility] [address] [id number] [address] [place] [address], [place] [address] 16 Jun, 2012 [facility] [address] [id number] [address] [place] [address], [place] [address] Jun, [facility] [address] [id number] [address] [place] [address], [place] [address] Jun, [facility] [address] [id number] [address] [place] [address], [place] [address] Jun, [facility] [address] [id number] [address] [place] [address], [place] [address] Jun, [facility] [address] [id number] [address] [place] [address], [place] [address] May, [facility] [address] [id number] [address] [place] [address], [place] [address] May, [facility] [address] [id number] [address] [place] [address], [place] [address] May, [facility] [address] [id number] [address] [place] [address], [place] [address] May, [facility] [address] [id number] [address] [place] [address], [place] [address] May, [facility] [address] [id number] [address] [place] [address], [place] [address] Apr, [facility] [address] [id number] [address] [place] [address], [place] [address] Apr, [facility] [address] [id number] [address] [place] [address], [place] [address] Apr, [facility] [address] [id number] [address] [place] [address], [place] [address] Apr, [facility] [address] [id number] [address] [place] [address], [place] [address] Apr, [facility] [address] [id number] [address] [place] [address], [place] [address] March, [facility] [address] [id number] [address] [place] [address], [place] [address] March, [facility] [address] [id number] [address] [place] [address], [place] [address] March, [facility] [address] [id number] [address] [place] [address], [place] [address] March, [facility] [address] [id number] [address] [place] [address], [place] [address] March, [facility] [address] [id number] [address] [place] [address], [place] [address] March, [facility] [address] [id number] [address] [place] [address], [place] [address] March, [facility] [address] [id number] [address] [place] [address], [place] [address] March, [facility] [address] [id number] [address] [place] [address], [place] [address] March, [facility] [address] [id number] [address] [place] [address], [place] [address] March, [facility] [address] [id number] [address] [place] [address], [place] [address] Feb, [facility] [address] [id number] [address] [place] [address], [place] [address] Feb, [facility] [address] [id number] [address] [place] [address], [place] [address] Feb, [facility] [address] [id number] [address] [place] [address], [place] [address] Feb, [facility] [address] [id number] [address] [place] [address], [place] [address] Feb, [facility] [address] [id number] [address] [place] [address], [place] [address] Feb, [facility] [address] [id number] [address] [place] [address], [place] [address] Feb, [facility] [address] [id number] [address] [place] [address], [place] [address] Feb, [facility] [address] [id number] [address] [place] [address], [place] [address] Feb, [facility] [address] [id number] [address] [place] [address], [place] [address] 08 Jan, 2012 [facility] [address] [id number] [address] [place] [address], [place] [address] 07 Jan, 2012 [facility] [address] [id number] [address] [place] [address], [place] [address] 05 Jan, 2012 [facility] [address] [id number] [address] [place] [address], [place] [address] 02 Jan, 2012 [facility] [address] [id number] [address] [place] [address], [place] [address] 29 Dec, 2011 [facility] [address] [id number] [address] [place] [address], [place] [address] Dec, [facility] [address] [id number] [address] [place] [address], [place] [address] Nov, [facility] [address] [id number] [address] [place] [address], [place] [address] Nov, [facility] [address] [id number] [address] [place] [address], [place] [address] Nov, [facility] [address] [id number] [address] [place] [address], [place] [address] Nov, [facility] [address] [id number] [address] [place] [address], [place] [address] Nov, [facility] [address] [id number] [address] [place] [address], [place] [address] Oct, [facility] [address] [id number] [address] [place] [address], [place] [address] Oct, [facility] [address] [id number] [address] [place] [address], [place] [address] Oct, [facility] [address] [id number] [address] [place] [address], [place] [address] Oct, [facility] [address] [id number] [address] [place] [address], [place] [address] Oct, [facility] [address] [facility] [id number] [address] [place] [address] Oct, [facility] [address] [facility] [id number] [address] [place] [address] Oct, [facility] [address] [facility] [id number] [address] [place] [address] Oct, [facility] [address] [facility] [id number] [address] [place] [address] Sep, IMMUNIZATIONS No Known Immunizations SOCIAL HISTORY [...] Hospitalization History [facility]- Urosepsis, ab d pain and fever, discharged 11/27/2017 11/26/2017 Hospitalization History [facility]- Went Unrepsonsive, Hit head 2017 Hospitalization History [facility]- Back Pain 05/05/ 8
--- OUTSIDE RECORDS SUMMARY | 2020-06-18 15:19 | XMS REPORT ---
Author Author Sanjuanita Sanchez [facility] Address [address] [place] [address] Care Team Providers Care Bisque Ware Dipper Name Role Phone LauraMARIA DE JESUS Unavailable PROBLEMS Type Condition ICD9-CM Code KXS50-VH Code Onset Dates Condition S tatus SNOMED Code Problem Coronary artery disease I25.10 Active 06400596 Problem Hypertension I10 Active 6061434 3 Problem Other chronic pain G89.29 Active 8 7898426 Problem Hyperlipidemia E78.5 Active 76540 004 Problem Type 2 diabetes mellitus wit hout complication, without long-term current use of insulin E11.9 Active 594762529 Problem Low back pain M54.5 Active 556082 009 Problem Pharyngeal dysphagia R13.13 Active [id number] Problem Anxiety F41.9 Active 84537690 Problem Peripheral vascular disease I73.9 Ac tive 206222360 Problem Suprapubic catheter Z93.59 Active 285994908 Problem Reactive depression F32.9 Active 60978335 Problem Neurogenic bladder N31.9 Active 3 35534253 Problem Ventral hernia without obstruction or gangrene K43 .9 Active 755686508 Problem Insomnia G47.00 Active 206449561 Problem Paroxysmal atrial fibrillation I48.0 Active 408507527 Problem Postmenopausal atrophic vaginitis N95.2 Active 60869849 Problem Encounter for suprapubic catheter care Z43.5 Active 061973005 ALLERGIES No Information ENCOUNTERS Encounter Location Date Diagnosis [facility] [address] [place] [id number] Jun, [facility] [address] [facility] [id number] [address] [place] [address] May, Dysuria R30.0 [facility] [address] [facility] [id number] [address] [place] [address] May, Strain of right shoulder, scherer bsequent encounter S46.911D and Anxiety F41.9 [place] [address] [id number] [address] [place] [id number] 27 Apr, 2019 [facility] [address] [place] [id number] Apr, Strain of right shoulder, subsequent enc ounter S46.911D [place] [address] [id number] [address] [place] [id number] 14 Apr, 2019 Strain of right shoulder, scherer bsequent encounter S46.911D and Anxiety F41.9 [facility] [address] [place] [id number] 13 Apr, 2019 Type 2 diabetes mellitus without complic ation, without long-term current use of insulin E11.9 and Neurogenic bladder N31.9 [facility] [address] [place] [id number] 11 Apr, 2019 Strain of right shoulder, subsequent enc ounter S46.911D ; History of GI bleed Z87.19 ; Neurogenic bladder N31.9 and Reactive depression F32.9 [place] [address] [id number] [address] [place] [id number] 10 Apr, 2019 Acute pain of left shoulder M25.512 [place] [address] [id number] [address] [place] [id number] 07 Apr, 2019 [place] [address] [id number] [address] [place] [address] Apr, Anxiety F41.9 and 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 [facility] [address] [place] [id number] March, Gastrointestinal hemorrhage associated w ith acute gastritis K29.01 [place] [address] [id number] [address] [place] [id number] March, [facility] [address] [place] [id number] March, Bronchitis J40 [place] [address] [id number] [address] [place] [id number] March, Cough R05 [facility] [address] [id number] [address] [place] [id number] March, Other chronic pain G89.29 [facility] [address] [id number] [address] [place] [address] March, Anxiety F41.9 [facility] [address] [id number] [address] [place] [id number] March, [facility] [address] [id number] [address] [place] [id number] Feb, Other chronic pain G89.29 [facility] [address] [id number] [address] [place] [id number] Feb, Anxiety F41.9 [facility] [address] [id number] [address] [place] [address] Feb, Other chronic pain G89.29 [facility] [address] [place] [id number] Feb, Neurogenic bladder N31.9 and Suprapubic catheter Z93.59 [facility] [address] [id number] [address] [place] [id number] Jan, Anxiety F41.9 [facility] [address] [id number] [address] [place] [address] Dec, Anxiety F41.9 [facility] [address] [id number] [address] [place] [id number] Dec, Other chronic pain G89.29 an d Anxiety F41.9 [facility] [address] [id number] [address] [place] [id number] Dec, [facility] [address] [place] [id number] Dec, Neurogenic bladder N31.9 and Suprapubic catheter Z93.59 [facility] [address] [id number] [address] [place] [address] Nov, Other chronic pain G89.29 an d Anxiety F41.9 [facility] [address] [id number] [address] [place] [id number] Nov, [facility] [address] [place] [id number] Nov, Suprapubic catheter Z93.59 [facility] [address] [id number] [address] [place] [address] Oct, Other chronic pain G89.29 an d Anxiety F41.9 [facility] [address] [id number] [address] [place] [id number] Oct, [facility] [address] [id number] [address] [place] [id number] Oct, Suprapubic catheter Z93.59 [facility] [address] [id number] [address] [place] [id number] Oct, Via [facility] [address] [place] [id number] Oct, [facility] [address] [id number] [address] [place] [address] Oct, Anxiety F41.9 [facility] [address] [id number] [address] [place] [id number] Oct, Anxiety F41.9 [facility] [address] [place] [id number] Oct, Other chronic pain G89.29 [facility] [address] [id number] [address] [place] [address] Sep, Other chronic pain G89.29 [facility] [employer] [address] [place] [id number] Sep, Suprapubic catheter Z93.59 and Cervicalg ia M54.2 [facility] [address] [id number] [address] [place] [id number] Sep, [facility] [address] [id number] [address] [place] [id number] Sep, [facility] [address] [id number] [address] [place] [address] Sep, Via [facility] [address] [place] [id number] Aug, Cystitis N30.90 [facility] [address] [id number] [address] [place] [id number] Aug, [facility] [address] [id number] [address] [place] [address] Aug, Other chronic pain G89.29 [facility] [address] [id number] [address] [place] [id number] Aug, Via [facility] [address] [place] [id number] Aug, Encounter for suprapubic catheter care Z 43.5 [facility] [address] [id number] [address] [place] [id number] Jul, [facility] [address] [place] [id number] Jul, [facility] [address] [id number] [address] [place] [address] Jul, Other chronic pain G89.29 [facility] [address] [id number] [address] [place] [id number] Jul, [facility] [address] [id number] [address] [place] [id number] Jul, Via [facility] [address] [place] [id number] Jun, Postmenopausal atrophic vaginitis N95.2 [facility] [address] [id number] [address] [place] [id number] Jun, Other chronic pain G89.29 [facility] [address] [id number] [address] [place] [address] Jun, [facility] [address] [place] [id number] May, Anxiety F41.9 ; Type 2 diabetes mellitus without complication, without long-term current use of insulin E11.9 ; Hypertension I10 ; Low back pain M54.5 ; Paroxysmal atrial fibrillation I48.0 and 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 [facility] [address] [id number] [address] [place] [address] May, Other chronic pain G89.29 [facility] [address] [place] [id number] May, Low back pain M54.5 [facility] [address] [id number] [address] [place] [id number] May, [facility] [address] [id number] [address] [place] [address] Apr, Other chronic pain G89.29 [facility] [address] [id number] [address] [place] [id number] Apr, [facility] [address] [id number] [address] [place] [id number] Apr, Via [facility] [address] [place] [id number] Apr, Closed compression fracture of L3 lumbar vertebra with routine healing, subsequent encounter S32.030D [facility] [address] [place] [id number] Apr, Low back pain M54.5 [facility] [address] [place] [id number] Apr, Coccydynia M53.3 [facility] [address] [id number] [address] [place] [id number] March, [facility] [address] [id number] [address] [place] [address] March, Other chronic pain G89.29 [facility] [address] [id number] [address] [place] [id number] March, [facility] [address] [id number] [address] [place] [id number] March, [facility] [address] [id number] [address] [place] [id number] Feb, [facility] [address] [id number] [address] [place] [address] Feb, Other chronic pain G89.29 [facility] [address] [place] [id number] Feb, Other chronic pain G89.29 and Anxiety F4 1.9 [facility] [address] [id number] [address] [place] [id number] Feb, [facility] [address] [id number] [address] [place] [id number] Jan, [facility] [address] [id number] [address] [place] [id number] Jan, [facility] [address] [id number] [address] [place] [id number] Jan, [facility] [address] [id number] [address] [place] [id number] Jan, [facility] [address] [id number] [address] [place] [address] Dec, [facility] [address] [place] [id number] Dec, Peripheral vascular disease I73.9 ; 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 [place] [address] [id number] [address] Nov, [facility] [address] [id number] [place] [id number] Nov, Anxiety F41.9 [facility] [address] [id number] [address] [place] [id number] Nov, [facility] [address] [id number] [place] [id number] Nov, Anxiety F41.9 [facility] [address] [place] [id number] Nov, Status post surgery Z98.890 ; Confused R 41.0 ; Anxiety F41.9 and Other chronic pain G89.29 [facility] [address] [id number] [place] [id number] Nov, Other chronic pain G89.29 [facility] [address] [id number] [address] [place] [address] Oct, [facility] [address] [id number] [place] [id number] Oct, Other chronic pain G89.29 [facility] [address] [id number] [address] [place] [id number] Oct, Anxiety F41.9 [facility] [address] [id number] [place] [id number] Sep, Other chronic pain G89.29 [facility] [address] [id number] [place] [id number] Sep, [facility] [address] [place] [id number] Aug, Dysuria R30.0 and Anxiety F41.9 [facility] [address] [id number] [address] [place] [id number] Aug, [facility] [address] [id number] [place] [id number] Aug, Other chronic pain G89.29 [facility] [address] [id number] [address] [place] [id number] Jul, Other chronic pain G89.29 [facility] [address] [id number] [place] [id number] Jun, [facility] [address] [id number] [place] [id number] Jun, Other chronic pain G89.29 [facility] [address] [id number] [address] [place] [id number] Jun, [facility] [address] [id number] [address] [place] [address] May, Other chronic pain G89.29 [facility] [address] [id number] [address] [place] [id number] Apr, Other chronic pain G89.29 [facility] [address] [place] [id number] Apr, Reactive depression F32.9 and Pharyngeal dysphagia R13.13 [facility] [address] [id number] [address] [place] [address] Apr, Urinary tract infection with out hematuria, site unspecified N39.0 [facility] [address] [id number] [address] [place] [address] March, Other chronic pain G89.29 [facility] [address] [id number] [address] [place] [id number] Feb, Other chronic pain G89.29 [facility] [address] [id number] [address] [place] [address] Feb, [facility] [address] [id number] [place] [id number] Feb, [facility] [address] [place] [id number] Feb, Dysuria R30.0 and Ventral hernia without obstruction or gangrene K43.9 [facility] [address] [id number] [address] [place] [address] Jan, Other chronic pain G89.29 [facility] [address] [id number] [place] [id number] Dec, Other chronic pain G89.29 [facility] [address] [id number] [address] [place] [address] Nov, Other chronic pain G89.29 [facility] [address] [place] [id number] Nov, Lymphadenitis I88.9 [facility] [address] [id number] [address] [place] [id number] Nov, Other chronic pain G89.29 [facility] [address] [id number] [address] [place] [address] Nov, [facility] [id number] [place] [id number] Nov, Other chronic pain G89.29 [facility] [address] [place] [id number] Oct, Low back pain M54.5 ; Hypertension I10 a nd Type 2 diabetes mellitus without complication, without long-term current use of insulin E11.9 [facility] [address] [id number] [address] [place] [phone] Oct, [facility] [address] [id number] [address] [place] [id number] Oct, [facility] [address] [id number] [address] [place] [id number] Oct, [facility] [address] [id number] [address] [place] [id number] Oct, [facility] [address] [id number] [address] [place] [id number] Sep, [facility] [address] [id number] [address] [place] [id number] Sep, [facility] [address] [id number] [address] [place] [address] Aug, Other chronic pain G89.29 [facility] [address] [id number] [address] [place] [address] Jul, [facility] [address] [id number] [address] [place] [address] Jul, [facility] [address] [id number] [address] [place] [id number] Jul, [facility] [address] [id number] [address] [place] [id number] Jun, [facility] [address] [id number] [address] [place] [address] Jun, [facility] [address] [place] [id number] Jun, Low back pain M54.5 ; Other chronic pain G89.29 and Coronary artery disease I25.10 [facility] [address] [id number] [address] [place] [address] Jun, [facility] [address] [id number] [address] [place] [id number] May, [facility] [address] [id number] [address] [place] [address] May, [facility] [address] [id number] [address] [place] [address] May, Other chronic pain G89.29 [facility] [address] [id number] [address] [place] [address] May, [facility] [address] [id number] [address] [place] [id number] Apr, [facility] [address] [id number] [address] [place] [id number] 17 Apr, 2016 Acute cystitis without hemat uria N30.00 [facility] [address] [id number] [address] [place] [address] 16 Apr, 2016 Acute cystitis without hemat uria N30.00 ; Coronary artery disease I25.10 ; Low back pain M54.5 and Other chronic pain G89.29 [facility] [address] [id number] [address] [place] [id number] Apr, Other chronic pain G89.29 [facility] [address] [id number] [address] [place] [id number] March, Other chronic pain G89.29 [facility] [address] [id number] [address] [place] [id number] 18 Feb, 2016 [facility] [address] [id number] [address] [place] [address] Feb, Arthritis M19.90 [facility] [address] [id number] [address] [place] [id number] Feb, [facility] [address] [id number] [address] [place] [id number] Jan, [facility] [address] [id number] [address] [place] [id number] Jan, [facility] [address] [id number] [address] [place] [id number] Jan, Other chronic pain G89.29 [facility] [address] [id number] [address] [place] [id number] Jan, Hypertension I10 ; Coronary artery disease I25.10 and Insomnia G47.00 [facility] [address] [id number] [address] [place] [id number] Jan, [facility] [address] [id number] [address] [place] [id number] Dec, Right hip pain M25.551 [facility] [address] [id number] [address] [place] [id number] Dec, [facility] [address] [id number] [address] [place] [id number] Dec, [facility] [address] [id number] [address] [place] [id number] Dec, [facility] [address] [id number] [address] [place] [address] Dec, Other chronic pain G89.29 [facility] [address] [id number] [address] [place] [id number] Dec, [facility] [address] [id number] [address] [place] [id number] Nov, [facility] [address] [id number] [address] [place] [id number] Nov, Other chronic pain G89.29 [facility] [address] [id number] [address] [place] [id number] Nov, Right hip pain M25.551 and C oronary artery disease I25.10 [facility] [address] [id number] [address] [place] [phone] Nov, Other chronic pain G89.29 [facility] [address] [id number] [address] [place] [phone] Oct, [facility] [address] [facility] [id number] [address] [place] [phone] Oct, [facility] [address] [facility] [id number] [address] [place] [phone] Sep, [facility] [address] [id number] [address] [place] [phone] Sep, [facility] [address] [facility] [id number] [address] [place] [phone] Aug, [facility] [address] [facility] [id number] [address] [place] [id number] Aug, Hypertension I10 ; Coronary artery disease I25.10 and Arthritis M19.90 [facility] [address] [id number] [address] [place] [phone] Jun, [facility] [address] [id number] [address] [place] [address], [place] [address] Jun, Essential hypertension, jayson gn 401.1 ; Other chronic pain 338.29 and Chronic airway obstruction, not elsewhere classified 496 [facility] [address] [id number] [address] [place] [address], [place] [address] Jun, [facility] [address] [id number] [address] [place] [address], [place] [address] Jun, [facility] [address] [id number] [address] [place] [address], [place] [phone] Jun, [facility] [address] [id number] [address] [place] [address], [place] [address] May, [facility] [address] [id number] [address] [place] [address], [place] [address] May, [facility] [address] [id number] [address] [place] [address], [place] [address] Apr, [facility] [address] [id number] [address] [place] [address], [place] [address] Apr, [facility] [address] [id number] [address] [place] [address], [place] [address] Apr, [facility] [address] [id number] [address] [place] [address], [place] [address] March, [facility] [address] [id number] [address] [place] [address], [place] [phone] March, [facility] [address] [id number] [address] [place] [id number] March, [facility] [address] [id number] [address] [place] [id number] March, [facility] [address] [id number] [address] [place] [address], [place] [address] March, Sialadenitis 527.2 [facility] [address] [id number] [address] [place] [address], [place] [address] Feb, [facility] [address] [id number] [address] [place] [address], [place] [address] Feb, [facility] [address] [id number] [address] [place] [address], [place] [phone] Feb, [facility] [address] [id number] [address] [place] [address], [place] [address] 14 Feb, 2015 [facility] [address] [id number] [address] [place] [address], [place] [address] Feb, [facility] [address] [id number] [address] [place] [address], [place] [address] Jan, [facility] [address] [id number] [address] [place] [address], [place] [address] Jan, [facility] [address] [id number] [address] [place] [address], [place] [address] Jan, [facility] [address] [id number] [address] [place] [address], [place] [address] Jan, [facility] [address] [id number] [address] [place] [address], [place] [address] Jan, [facility] [address] [id number] [address] [place] [address], [place] [address] Jan, [facility] [address] [id number] [address] [place] [address], [place] [address] Dec, 2014 [facility] [address] [id number] [address] [place] [address], [place] [address] Dec, 2014 [facility] [address] [id number] [address] [place] [address], [place] [address] Dec, 2014 [facility] [address] [id number] [address] [place] [address], [place] [address] Dec, 2014 [facility] [address] [id number] [address] [place] [address], [place] [address] Dec, 2014 [facility] [address] [id number] [address] [place] [address], [place] [address] Dec, [facility] [address] [id number] [address] [place] [address], [place] [address] Nov, [facility] [address] [id number] [address] [place] [address], [place] [address] Nov, [facility] [address] [id number] [address] [place] [address], [place] [address] Nov, [facility] [address] [id number] [address] [place] [address], [place] [address] Nov, [facility] [address] [id number] [address] [place] [address], [place] [address] Nov, [facility] [address] [id number] [address] [place] [address], [place] [address] Nov, [facility] [address] [id number] [address] [place] [address], [place] [address] Nov, [facility] [address] [id number] [address] [place] [address], [place] [address] Nov, [facility] [address] [id number] [address] [place] [address], [place] [address] Nov, [facility] [address] [id number] [address] [place] [address], [place] [address] Nov, [facility] [address] [id number] [address] [place] [address], [place] [address] Nov, [facility] [address] [id number] [address] [place] [address], [place] [address] Nov, [facility] [address] [id number] [address] [place] [address], [place] [address] Nov, [facility] [address] [id number] [address] [place] [address], [place] [address] Nov, [facility] [address] [id number] [address] [place] [address], [place] [address] Oct, [facility] [address] [id number] [address] [place] [address], [place] [address] Oct, [facility] [address] [id number] [address] [place] [address], [place] [address] Oct, [facility] [address] [id number] [address] [place] [address], [place] [address] 18 Oct, 2014 [facility] [address] [id number] [address] [place] [address], [place] [address] Oct, [facility] [address] [id number] [address] [place] [address], [place] [address] Oct, [facility] [address] [id number] [address] [place] [address], [place] [address] Oct, [facility] [address] [id number] [address] [place] [address], [place] [address] Oct, [facility] [address] [id number] [address] [place] [address], [place] [address] Oct, [facility] [address] [id number] [address] [place] [address], [place] [address] Sep, [facility] [address] [id number] [address] [place] [address], [place] [address] Sep, [facility] [address] [id number] [address] [place] [address], [place] [address] Sep, [facility] [address] [id number] [address] [place] [address], [place] [address] Sep, [facility] [address] [id number] [address] [place] [address], [place] [address] Sep, [facility] [address] [id number] [address] [place] [address], [place] [address] Sep, [facility] [address] [id number] [address] [place] [address], [place] [address] Sep, [facility] [address] [id number] [address] [place] [address], [place] [address] Sep, [facility] [address] [id number] [address] [place] [address], [place] [address] Sep, [facility] [address] [id number] [address] [place] [address], [place] [address] Sep, [facility] [address] [id number] [address] [place] [address], [place] [address] Sep, [facility] [address] [id number] [address] [place] [address], [place] [address] Sep, [facility] [address] [id number] [address] [place] [address], [place] [address] Aug, [facility] [address] [id number] [address] [place] [address], [place] [address] Aug, [facility] [address] [id number] [address] [place] [address], [place] [address] Aug, [facility] [address] [id number] [address] [place] [address], [place] [address] Aug, [facility] [address] [id number] [address] [place] [address], [place] [address] Aug, [facility] [address] [id number] [address] [place] [address], [place] [address] Aug, [facility] [address] [id number] [address] [place] [address], [place] [address] Aug, [facility] [address] [id number] [address] [place] [address], [place] [address] Aug, [facility] [address] [id number] [address] [place] [address], [place] [address] 30 Jul, 2014 [facility] [address] [id number] [address] [place] [address], [place] [address] 30 Jul, 2014 [facility] [address] [id number] [address] [place] [address], [place] [address] 30 Jul, 2014 [facility] [address] [id number] [address] [place] [address] 30 Jul, 2013 [facility] [address] [id number] [address] [place] [address] 25 Jul, 2013 [facility] [address] [id number] [address] [place] [address] 25 Jul, 2013 [facility] [address] [id number] [address] [place] [address], [place] [address] 15 Jul, 2013 [facility] [address] [id number] [address] [place] [address], [place] [address] 15 Jul, 2013 [facility] [address] [id number] [address] [place] [address], [place] [address] Jul, [facility] [address] [id number] [address] [place] [address], [place] [address] Jul, [facility] [address] [id number] [address] [place] [address], [place] [address] Jun, [facility] [address] [id number] [address] [place] [address], [place] [address] Jun, [facility] [address] [id number] [address] [place] [address], [place] [address] Jun, [facility] [address] [id number] [address] [place] [address], [place] [address] Jun, [facility] [address] [id number] [address] [place] [address], [place] [address] Jun, [facility] [address] [id number] [address] [place] [address], [place] [address] Jun, [facility] [address] [id number] [address] [place] [address], [place] [address] Jun, [facility] [address] [id number] [address] [place] [address], [place] [address] Jun, [facility] [address] [id number] [address] [place] [address], [place] [address] Jun, [facility] [address] [id number] [address] [place] [address] Jun, [facility] [address] [id number] [address] [place] [address], [place] [address] Jun, [facility] [address] [id number] [address] [place] [address], [place] [address] Jun, [facility] [address] [id number] [address] [place] [address], [place] [address] Jun, [facility] [address] [id number] [address] [place] [address], [place] [address] Jun, [facility] [address] [id number] [address] [place] [address], [place] [address] Jun, [facility] [address] [id number] [address] [place] [address], [place] [address] Jun, [facility] [address] [id number] [address] [place] [address], [place] [address] Jun, [facility] [address] [id number] [address] [place] [address], [place] [address] Jun, [facility] [address] [id number] [address] [place] [address], [place] [address] Jun, [facility] [address] [id number] [address] [place] [address], [place] [address] Jun, [facility] [address] [id number] [address] [place] [address], [place] [address] Jun, [facility] [address] [id number] [address] [place] [address], [place] [address] Jun, [facility] [address] [id number] [address] [place] [address], [place] [address] May, [facility] [address] [id number] [address] [place] [address], [place] [address] May, [facility] [address] [id number] [address] [place] [address] May, [facility] [address] [id number] [address] [place] [address] May, [facility] [address] [id number] [address] [place] [address] May, [facility] [address] [id number] [address] [place] [address], [place] [address] May, 2013 [facility] [address] [id number] [address] [place] [address], [place] [address] May, 2013 [facility] [address] [id number] [address] [place] [address], [place] [address] May, [facility] [address] [id number] [address] [place] [address], [place] [address] May, [facility] [address] [id number] [address] [place] [address], [place] [address] May, [facility] [address] [id number] [address] [place] [address], [place] [address] May, [facility] [address] [id number] [address] [place] [address], [place] [address] May, [facility] [address] [id number] [address] [place] [address], [place] [address] May, [facility] [address] [id number] [address] [place] [address], [place] [address] Apr, [facility] [address] [id number] [address] [place] [address], [place] [address] Apr, [facility] [address] [id number] [address] [place] [address], [place] [address] Apr, [facility] [address] [id number] [address] [place] [address], [place] [address] Apr, [facility] [address] [id number] [address] [place] [address], [place] [address] Apr, [facility] [address] [id number] [address] [place] [address], [place] [address] Apr, [facility] [address] [id number] [address] [place] [address], [place] [address] Apr, [facility] [address] [id number] [address] [place] [address], [place] [address] Apr, [facility] [address] [id number] [address] [place] [address], [place] [address] Apr, [facility] [address] [id number] [address] [place] [address], [place] [address] March, [facility] [address] [id number] [address] [place] [address], [place] [address] March, [facility] [address] [id number] [address] [place] [address], [place] [address] March, [facility] [address] [id number] [address] [place] [address], [place] [address] March, [facility] [address] [id number] [address] [place] [address], [place] [address] March, [facility] [address] [id number] [address] [place] [address], [place] [address] March, [facility] [address] [id number] [address] [place] [address], [place] [address] March, [facility] [address] [id number] [address] [place] [address], [place] [address] March, [facility] [address] [id number] [address] [place] [address], [place] [address] March, [facility] [address] [id number] [address] [place] [address], [place] [address] March, [facility] [address] [id number] [address] [place] [address], [place] [address] March, [facility] [address] [id number] [address] [place] [address], [place] [address] March, [facility] [address] [id number] [address] [place] [address], [place] [address] March, [facility] [address] [id number] [address] [place] [address], [place] [address] March, [facility] [address] [id number] [address] [place] [address], [place] [address] March, [facility] [address] [id number] [address] [place] [address], [place] [address] March, [facility] [address] [id number] [address] [place] [address], [place] [address] March, [facility] [address] [id number] [address] [place] [address], [place] [address] March, [facility] [address] [id number] [address] [place] [address], [place] [address] March, [facility] [address] [id number] [address] [place] [address], [place] [address] March, [facility] [address] [id number] [address] [place] [address], [place] [address] Feb, [facility] [address] [id number] [address] [place] [address], [place] [address] Feb, [facility] [address] [id number] [address] [place] [address], [place] [address] Feb, [facility] [address] [id number] [address] [place] [address], [place] [address] Feb, [facility] [address] [id number] [address] [place] [address], [place] [address] Feb, [facility] [address] [id number] [address] [place] [address], [place] [address] Feb, [facility] [address] [id number] [address] [place] [address], [place] [address] Feb, [facility] [address] [id number] [address] [place] [address] 11 Feb, 2014 [facility] [address] [id number] [address] [place] [address] Jan, [facility] [address] [id number] [address] [place] [address] Jan, [facility] [address] [id number] [address] [place] [address], [place] [address] Jan, [facility] [address] [id number] [address] [place] [address], [place] [address] Jan, [facility] [address] [id number] [address] [place] [address], [place] [address] Jan, [facility] [address] [id number] [address] [place] [address], [place] [address] Jan, [facility] [address] [id number] [address] [place] [address], [place] [address] Jan, [facility] [address] [id number] [address] [place] [address], [place] [address] Jan, [facility] [address] [id number] [address] [place] [address], [place] [address] Jan, [facility] [address] [id number] [address] [place] [address], [place] [address] Jan, [facility] [address] [id number] [address] [place] [address], [place] [address] 27 Dec, 2013 [facility] [address] [id number] [address] [place] [address], [place] [address] Dec, [facility] [address] [id number] [address] [place] [address], [place] [address] Dec, [facility] [address] [id number] [address] [place] [address] [address] 2013 [facility] [address] [id number] [address] [place] [address], [place] [address] Dec, [facility] [address] [id number] [address] [place] [address], [place] [address] Dec, [facility] [address] [id number] [address] [place] [address], [place] [address] Dec, [facility] [address] [id number] [address] [place] [address], [place] [address] Dec, [facility] [address] [id number] [address] [place] [address], [place] [address] Nov, [facility] [address] [id number] [address] [place] [address], [place] [address] Nov, [facility] [address] [id number] [address] [place] [address], [place] [address] Nov, [facility] [address] [id number] [address] [place] [address], [place] [address] Nov, [facility] [address] [id number] [address] [place] [address], [place] [address] Nov, [facility] [address] [id number] [address] [place] [address], [place] [address] Nov, [facility] [address] [id number] [address] [place] [address], [place] [address] Nov, [facility] [address] [id number] [address] [place] [address], [place] [address] Nov, [facility] [address] [id number] [address] [place] [address], [place] [address] Nov, [facility] [address] [id number] [address] [place] [address], [place] [address] Nov, [facility] [address] [id number] [address] [place] [address], [place] [address] Nov, [facility] [address] [id number] [address] [place] [address], [place] [address] Nov, [facility] [address] [id number] [address] [place] [address], [place] [address] 15 Nov, 2013 [facility] [address] [id number] [address] [place] [address], [place] [address] 30 Oct, 2013 [facility] [address] [id number] [address] [place] [address], [place] [address] Oct, [facility] [address] [id number] [address] [place] [address], [place] [address] Oct, [facility] [address] [id number] [address] [place] [address], [place] [address] Oct, [facility] [address] [id number] [address] [place] [address], [place] [address] Oct, [facility] [address] [id number] [address] [place] [address], [place] [address] Oct, [facility] [address] [id number] [address] [place] [address], [place] [address] Oct, [facility] [address] [id number] [address] [place] [address], [place] [address] 18 Oct, 2013 [facility] [address] [id number] [address] [place] [address], [place] [address] Oct, [facility] [address] [id number] [address] [place] [address], [place] [address] 17 Oct, 2013 [facility] [address] [id number] [address] [place] [address], [place] [address] Oct, [facility] [address] [id number] [address] [place] [address], [place] [address] 03 Oct, 2013 [facility] [address] [id number] [address] [place] [address], [place] [address] 02 Oct, 2013 [facility] [address] [id number] [address] [place] [address], [place] [address] 02 Oct, 2013 [facility] [address] [id number] [address] [place] [address], [place] [address] 14 Sep, 2013 [facility] [address] [id number] [address] [place] [address], [place] [address] 14 Sep, 2013 [facility] [address] [id number] [address] [place] [address], [place] [address] Sep, [facility] [address] [id number] [address] [place] [address], [place] [address] 05 Sep, 2013 [facility] [address] [id number] [address] [place] [address], [place] [address] Sep, [facility] [address] [id number] [address] [place] [address], [place] [address] Sep, [facility] [address] [id number] [address] [place] [address], [place] [address] Sep, [facility] [address] [id number] [address] [place] [address], [place] [address] Sep, [facility] [address] [id number] [address] [place] [address], [place] [address] Sep, [facility] [address] [id number] [address] [place] [address], [place] [address] Sep, [facility] [address] [id number] [address] [place] [address] Aug, [facility] [address] [id number] [address] [place] [address], [place] [address] Aug, [facility] [address] [id number] [address] [place] [address] Aug, [facility] [address] [id number] [address] [place] [address], [place] [address] Aug, [facility] [address] [id number] [address] [place] [address], [place] [address] Aug, [facility] [address] [id number] [address] [place] [address] Aug, [facility] [address] [id number] [address] [place] [address] [place] [address] 23 Aug, 2012 [facility] [address] [id number] [address] [place] [address], [place] [address] 23 Aug, 2012 [facility] [address] [id number] [address] [place] [address], [place] [address] 22 Aug, 2012 [facility] [address] [id number] [address] [place] [address], [place] [address] 22 Aug, 2012 [facility] [address] [id number] [address] [place] [address], [place] [address] 18 Aug, 2012 [facility] [address] [id number] [address] [place] [address], [place] [address] 18 Aug, 2012 [facility] [address] [id number] [address] [place] [address], [place] [address] 18 Aug, 2012 [facility] [address] [id number] [address] [place] [address], [place] [address] 18 Aug, 2012 [facility] [address] [id number] [address] [place] [address], [place] [address] 17 Aug, 2012 [facility] [address] [id number] [address] [place] [address], [place] [address] 14 Aug, 2013 [facility] [address] [id number] [address] [place] [address], [place] [address] 14 Aug, 2013 [facility] [address] [id number] [address] [place] [address], [place] [address] 01 Aug, 2012 [facility] [address] [id number] [address] [place] [address] 20 Jul, 2012 [facility] [address] [id number] [address] [place] [address], [place] [address] 19 Sep, 2012 [facility] [address] [id number] [address] [place] [address], [place] [address] 18 Jul, 2012 [facility] [address] [id number] [address] [place] [address] 11 Jul, 2012 [facility] [address] [id number] [facility] [place] [address] Jul, [facility] [address] [id number] [address] [place] [address], [place] [address] Jun, [facility] [address] [id number] [address] [place] [address], [place] [address] Jun, [facility] [address] [id number] [address] [place] [address], [place] [address] Jun, [facility] [address] [id number] [address] [place] [address], [place] [address] Jun, [facility] [address] [id number] [address] [place] [address], [place] [address] Jun, [facility] [address] [id number] [address] [place] [address], [place] [address] Jun, [facility] [address] [id number] [address] [place] [address], [place] [address] Jun, [facility] [address] [id number] [address] [place] [address], [place] [address] Jun, [facility] [address] [id number] [address] [place] [address], [place] [address] Jun, [facility] [address] [id number] [address] [place] [address], [place] [address] Jun, [facility] [address] [id number] [address] [place] [address], [place] [address] May, [facility] [address] [id number] [address] [place] [address], [place] [address] May, [facility] [address] [id number] [address] [place] [address], [place] [address] May, [facility] [address] [id number] [address] [place] [address], [place] [address] May, [facility] [address] [id number] [address] [place] [address], [place] [address] May, [facility] [address] [id number] [address] [place] [address], [place] [address] May, [facility] [address] [id number] [address] [place] [address], [place] [address] May, [facility] [address] [id number] [address] [place] [address], [place] [address] May, [facility] [address] [id number] [address] [place] [address], [place] [address] May, [facility] [address] [id number] [address] [place] [address], [place] [address] Apr, [facility] [address] [id number] [address] [place] [address], [place] [address] Apr, [facility] [address] [id number] [address] [place] [address], [place] [address] Apr, [facility] [address] [id number] [address] [place] [address], [place] [address] Apr, [facility] [address] [id number] [address] [place] [address], [place] [address] Apr, [facility] [address] [id number] [address] [place] [address], [place] [address] Apr, [facility] [address] [id number] [address] [place] [address], [place] [address] Apr, [facility] [address] [id number] [address] [place] [address], [place] [address] March, [facility] [address] [id number] [address] [place] [address], [place] [address] Feb, [facility] [address] [id number] [address] [place] [address], [place] [address] Feb, [facility] [address] [id number] [address] [place] [address], [place] [address] Feb, [facility] [address] [id number] [address] [place] [address], [place] [address] 28 Jan, 2013 [facility] [address] [id number] [address] [place] [address], [place] [address] 21 Jan, 2013 [facility] [address] [id number] [address] [place] [address], [place] [address] 19 Jan, 2013 [facility] [address] [id number] [address] [place] [address], [place] [address] 14 Jan, 2013 [facility] [address] [id number] [address] [place] [address], [place] [address] 12 Jan, 2013 [facility] [address] [id number] [address] [place] [address], [place] [address] 08 Jan, 2013 [facility] [address] [id number] [address] [place] [address], [place] [address] 07 Jan, 2013 [facility] [address] [id number] [address] [place] [address], [place] [address] 04 Jan, 2013 [facility] [address] [id number] [address] [place] [address], [place] [address] 28 Dec, 2012 [facility] [address] [id number] [address] [place] [address], [place] [address] 25 Dec, 2012 [facility] [address] [id number] [address] [place] [address], [place] [address] 13 Dec, 2012 [facility] [address] [id number] [address] [place] [address], [place] [address] 11 Dec, 2012 [facility] [address] [id number] [address] [place] [address], [place] [address] 07 Dec, 2012 [facility] [address] [id number] [address] [place] [address], [place] [address] 06 Dec, 2012 [facility] [address] [id number] [address] [place] [address], [place] [address] 05 Dec, 2012 [facility] [address] [id number] [address] [place] [address] [address] 31 Nov, 2012 [facility] [address] [id number] [address] [place] [address], [place] [address] 24 Nov, 2012 [facility] [address] [id number] [address] [place] [address], [place] [address] 18 Nov, 2012 [facility] [address] [id number] [address] [place] [address], [place] [address] 15 Nov, 2012 [facility] [address] [id number] [address] [place] [address], [place] [address] 10 Nov, 2012 [facility] [address] [id number] [address] [place] [address], [place] [address] Nov, [facility] [address] [id number] [address] [place] [address], [place] [address] Nov, [facility] [address] [id number] [address] [place] [address], [place] [address] Oct, [facility] [address] [id number] [address] [place] [address], [place] [address] Oct, [facility] [address] [id number] [address] [place] [address], [place] [address] Oct, [facility] [address] [id number] [address] [place] [address], [place] [address] Oct, [facility] [address] [id number] [address] [place] [address], [place] [address] 17 Oct, 2012 [facility] [address] [id number] [address] [place] [address], [place] [address] 17 Oct, 2012 [facility] [address] [id number] [address] [place] [address], [place] [address] Oct, [facility] [address] [id number] [address] [place] [address], [place] [address] 07 Oct, 2012 [facility] [address] [id number] [address] [place] [address], [place] [address] 05 Oct, 2012 [facility] [address] [id number] [address] [place] [address], [place] [address] Oct, [facility] [address] [id number] [address] [place] [address], [place] [address] Oct, [facility] [address] [id number] [address] [place] [address], [place] [address] Oct, [facility] [address] [id number] [address] [place] [address], [place] [address] Sep, [facility] [address] [id number] [address] [place] [address], [place] [address] Sep, [facility] [address] [id number] [address] [place] [address], [place] [address] Sep, [facility] [address] [id number] [address] [place] [address], [place] [address] Sep, [facility] [address] [id number] [address] [place] [address], [place] [address] Sep, [facility] [address] [id number] [address] [place] [address], [place] [address] Sep, [facility] [address] [id number] [address] [place] [address], [place] [address] Sep, [facility] [address] [id number] [address] [place] [address], [place] [address] Sep, [facility] [address] [id number] [address] [place] [address], [place] [address] Sep, [facility] [address] [id number] [address] [place] [address], [place] [address] Sep, [facility] [address] [id number] [address] [place] [address], [place] [address] Sep, [facility] [address] [id number] [address] [place] [address], [place] [address] Aug, [facility] [address] [id number] [address] [place] [address], [place] [address] Aug, [facility] [address] [id number] [address] [place] [address], [place] [address] Aug, [facility] [address] [id number] [address] [place] [address], [place] [address] Aug, [facility] [address] [id number] [address] [place] [address], [place] [address] Aug, [facility] [address] [id number] [address] [place] [address], [place] [address] Aug, [facility] [address] [id number] [address] [place] [address], [place] [address] Aug, [facility] [address] [id number] [address] [place] [address], [place] [address] Aug, [facility] [address] [id number] [address] [place] [address], [place] [address] Aug, [facility] [address] [id number] [address] [place] [address], [place] [address] Aug, [facility] [address] [id number] [address] [place] [address], [place] [address] Jul, [facility] [address] [id number] [address] [place] [address], [place] [address] 20 Jul, 2012 [facility] [address] [id number] [address] [place] [address], [place] [address] Jul, [facility] [address] [id number] [address] [place] [address], [place] [address] 06 Jul, 2012 [facility] [address] [id number] [address] [place] [address], [place] [address] Jun, [facility] [address] [id number] [address] [place] [address], [place] [address] Jun, [facility] [address] [id number] [address] [place] [address], [place] [address] 16 Jun, 2012 [facility] [address] [id number] [address] [place] [address], [place] [address] Jun, [facility] [address] [id number] [address] [place] [address], [place] [address] Jun, [facility] [address] [id number] [address] [place] [address], [place] [address] Jun, [facility] [address] [id number] [address] [place] [address], [place] [address] Jun, [facility] [address] [id number] [address] [place] [address], [place] [address] May, [facility] [address] [id number] [address] [place] [address], [place] [address] May, [facility] [address] [id number] [address] [place] [address], [place] [address] May, [facility] [address] [id number] [address] [place] [address], [place] [address] May, [facility] [address] [id number] [address] [place] [address], [place] [address] May, [facility] [address] [id number] [address] [place] [address], [place] [address] Apr, [facility] [address] [id number] [address] [place] [address], [place] [address] Apr, [facility] [address] [id number] [address] [place] [address], [place] [address] Apr, [facility] [address] [id number] [address] [place] [address], [place] [address] Apr, [facility] [address] [id number] [address] [place] [address], [place] [address] Apr, [facility] [address] [id number] [address] [place] [address], [place] [address] March, [facility] [address] [id number] [address] [place] [address], [place] [address] March, [facility] [address] [id number] [address] [place] [address], [place] [address] March, [facility] [address] [id number] [address] [place] [address], [place] [address] March, [facility] [address] [id number] [address] [place] [address], [place] [address] March, [facility] [address] [id number] [address] [place] [address], [place] [address] March, [facility] [address] [id number] [address] [place] [address], [place] [address] March, [facility] [address] [id number] [address] [place] [address], [place] [address] March, [facility] [address] [id number] [address] [place] [address], [place] [address] March, [facility] [address] [id number] [address] [place] [address], [place] [address] March, [facility] [address] [id number] [address] [place] [address], [place] [address] Feb, [facility] [address] [id number] [address] [place] [address], [place] [address] Feb, [facility] [address] [id number] [address] [place] [address], [place] [address] Feb, [facility] [address] [id number] [address] [place] [address], [place] [address] Feb, [facility] [address] [id number] [address] [place] [address], [place] [address] Feb, [facility] [address] [id number] [address] [place] [address], [place] [address] Feb, [facility] [address] [id number] [address] [place] [address], [place] [address] Feb, [facility] [address] [id number] [address] [place] [address], [place] [address] Feb, [facility] [address] [id number] [address] [place] [address], [place] [address] Feb, [facility] [address] [id number] [address] [place] [address], [place] [address] 08 Jan, 2012 [facility] [address] [id number] [address] [place] [address], [place] [address] Jan, [facility] [address] [id number] [address] [place] [address], [place] [address] 05 Jan, 2012 [facility] [address] [id number] [address] [place] [address], [place] [address] Jan, [facility] [address] [id number] [address] [place] [address], [place] [address] Dec, [facility] [address] [id number] [address] [place] [address], [place] [address] Dec, [facility] [address] [id number] [address] [place] [address], [place] [address] Nov, [facility] [address] [id number] [address] [place] [address], [place] [address] Nov, [facility] [address] [id number] [address] [place] [address], [place] [address] Nov, [facility] [address] [id number] [address] [place] [address], [place] [address] Nov, [facility] [address] [id number] [address] [place] [address], [place] [address] Nov, [facility] [address] [id number] [address] [place] [address], [place] [address] Oct, [facility] [address] [id number] [address] [place] [address], [place] [address] Oct, [facility] [address] [id number] [address] [place] [address], [place] [address] Oct, [facility] [address] [id number] [address] [place] [address] Oct, [facility] [address] [facility] [id number] [address] [place] [phone] Oct, [facility] [address] [facility] [id number] [address] [place] [id number] Oct, [facility] [address] [facility] [id number] [address] [place] [phone] Oct, [facility] [address] [facility] [id number] [address] [place] [id number] Oct, [facility] [address] [facility] [id number] [address] [place] [id number] Sep, IMMUNIZATIONS No Known Immunizations SOCIAL HISTORY [...] fever, discharged 11/27/2017 11/26/2017 Hospitalization History [facility]- Went Unrepsonsive, Hit head 2017 Hospitalization History [facility]- Back Pain 05/05/ 8
--- OUTSIDE RECORDS SUMMARY | 2020-06-18 15:20 | XMS REPORT ---
Author Sanjuanita Roberts [facility] Address [address] [place] [address] Care Team Providers Care Hand Expansion Envelope Maker Name Role Phone ELIAZAR BLANCO Unavailable PROBLEMS Type Condition ICD9-CM Code NDN37-OC Code Onset Dates Condition S tatus SNOMED Code Problem Coronary artery disease I25.10 Active 93269992 Problem Hypertension I10 Active 5400497 3 Problem Other chronic pain G89.29 Active 8 0700800 Problem Hyperlipidemia E78.5 Active 58375 004 Problem Type 2 diabetes mellitus wit hout complication, without long-term current use of insulin E11.9 Active 404605128 Problem Low back pain M54.5 Active 340340 009 Problem Pharyngeal dysphagia R13.13 Active 30838916755274 Problem Anxiety F41.9 Active 13291974 Problem Peripheral vascular disease I73.9 Ac tive 657114635 Problem Suprapubic catheter Z93.59 Active 404956924 Problem Reactive depression F32.9 Active 64686742 Problem Neurogenic bladder N31.9 Active 3 58936436 Problem Ventral hernia without obstruction or gangrene K43 .9 Active 456121614 Problem Insomnia G47.00 Active 615655670 Problem Paroxysmal atrial fibrillation I48.0 Active 261495367 Problem Postmenopausal atrophic vaginitis N95.2 Active 01338247 Problem Encounter for suprapubic catheter care Z43.5 Active 506109851 ALLERGIES No Information ENCOUNTERS Encounter Location Date Diagnosis [facility] [employer] [address] [place] [id number] Jun, [facility] [address] [facility] [id number] [address] [place] [address] May, [facility] [address] [facility] [id number] [address] [place] [id number] Apr, [facility] [employer] [address] [place] [id number] Apr, Strain of right shoulder, subsequent enc ounter S46.911D [facility] [address] [id number] [address] [place] [id number] 14 Apr, 2019 Strain of right shoulder, scherer bsequent encounter S46.911D and Anxiety F41.9 [facility] [address] [place] [id number] 13 Apr, 2019 Type 2 diabetes mellitus without complic ation, without long-term current use of insulin E11.9 and Neurogenic bladder N31.9 [facility] [address] [place] [id number] 11 Apr, 2019 Strain of right shoulder, subsequent enc ounter S46.911D ; History of GI bleed Z87.19 ; Neurogenic bladder N31.9 and Reactive depression F32.9 [facility] [address] [id number] [address] [place] [id number] 10 Apr, 2019 Acute pain of left shoulder M25.512 [facility] [address] [id number] [address] [place] [id number] 07 Apr, 2019 [facility] [address] [id number] [address] [place] [phone] 06 Apr, 2019 Anxiety F41.9 and 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 [facility] [employer] [address] [place] [id number] March, Gastrointestinal hemorrhage associated w ith acute gastritis K29.01 [facility] [address] [id number] [address] [place] [address] March, [facility] [address] [place] [id number] March, Bronchitis J40 [facility] [address] [id number] [address] [place] [address] March, Cough R05 [facility] [facility] [address] [id number] [address] [place] [address] March, Other chronic pain G89.29 [place] [address] [id number] [address] [place] [phone] March, Anxiety F41.9 [facility] [address] [id number] [address] [place] [id number] March, [facility] [address] [id number] [address] [place] [phone] Feb, Other chronic pain G89.29 [facility] [address] [id number] [address] [place] [id number] Feb, Anxiety F41.9 [facility] [address] [id number] [address] [place] [address] Feb, Other chronic pain G89.29 [facility] [address] [place] [id number] Feb, Neurogenic bladder N31.9 and Suprapubic catheter Z93.59 [facility] [address] [id number] [address] [place] [id number] Jan, Anxiety F41.9 [facility] [address] [id number] [address] [place] [address] Dec, Anxiety F41.9 [facility] [address] [id number] [address] [place] [phone] Dec, Other chronic pain G89.29 an d Anxiety F41.9 [facility] [address] [id number] [address] [place] [phone] Dec, [facility] [address] [place] [id number] Dec, Neurogenic bladder N31.9 and Suprapubic catheter Z93.59 [facility] [address] [id number] [address] [place] [id number] Nov, Other chronic pain G89.29 an d Anxiety F41.9 [facility] [address] [id number] [address] [place] [id number] Nov, [facility] [address] [place] [id number] Nov, Suprapubic catheter Z93.59 [facility] [address] [id number] [address] [place] [id number] Oct, Other chronic pain G89.29 an d Anxiety F41.9 [facility] [address] [id number] [address] [place] [id number] Oct, [facility] [address] [id number] [address] [place] [id number] Oct, Suprapubic catheter Z93.59 [facility] [address] [id number] [address] [place] [id number] Oct, [employer] [address] [place] [id number] Oct, [facility] [address] [id number] [address] [place] [id number] Oct, Anxiety F41.9 [facility] [address] [id number] [address] [place] [address] Oct, Anxiety F41.9 [employer] [address] [place] [id number] Oct, Other chronic pain G89.29 [facility] [address] [id number] [address] [place] [address] Sep, Other chronic pain G89.29 [employer] [address] [place] [id number] Sep, Suprapubic catheter Z93.59 and Cervicalg ia M54.2 [facility] [address] [id number] [address] [place] [address] Sep, [facility] [address] [id number] [address] [place] [address] Sep, [facility] [address] [id number] [address] [place] [phone] Sep, [employer] [address] [place] [id number] Aug, Cystitis N30.90 [facility] [address] [id number] [address] [place] [address] Aug, [facility] [address] [id number] [address] [place] [address] Aug, Other chronic pain G89.29 [facility] [address] [id number] [address] [place] [id number] Aug, [facility] [employer] [address] [place] [id number] Aug, Encounter for suprapubic catheter care Z 43.5 [place] [address] [id number] [address] [place] [address] Jul, [facility] [employer] [address] [place] [id number] Jul, [place] [address] [id number] [address] [place] [address] Jul, Other chronic pain G89.29 [facility] [address] [id number] [address] [place] [address] Jul, [facility] [address] [id number] [address] [place] [phone] Jul, [employer] [address] [place] [id number] Jun, Postmenopausal atrophic vaginitis N95.2 [facility] [address] [id number] [address] [place] [id number] Jun, Other chronic pain G89.29 [facility] [address] [id number] [address] [place] [address] Jun, [employer] [address] [place] [id number] May, Anxiety F41.9 ; Type 2 diabetes mellitus without complication, without long-term current use of insulin E11.9 ; Hypertension I10 ; Low back pain M54.5 ; Paroxysmal atrial fibrillation I48.0 and 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 [facility] [address] [id number] [address] [place] [address] May, Other chronic pain G89.29 [facility] [employer] [address] [place] [id number] May, Low back pain M54.5 [facility] [address] [id number] [address] [place] [address] May, [facility] [address] [id number] [address] [place] [address] Apr, Other chronic pain G89.29 [facility] [address] [id number] [address] [place] [id number] Apr, [facility] [address] [id number] [address] [place] [phone] Apr, [employer] [address] [place] [id number] Apr, Closed compression fracture of L3 lumbar vertebra with routine healing, subsequent encounter S32.030D [employer] [address] [place] [id number] Apr, Low back pain M54.5 [facility] [employer] [facility] [address] [place] [id number] Apr, Coccydynia M53.3 [facility] [address] [id number] [address] [place] [id number] March, [facility] [address] [id number] [address] [place] [address] March, Other chronic pain G89.29 [facility] [address] [id number] [address] [place] [id number] March, [facility] [address] [id number] [address] [place] [id number] March, [facility] [address] [id number] [address] [place] [phone] Feb, [facility] [address] [id number] [address] [place] [address] Feb, Other chronic pain G89.29 [facility] [employer] [address] [place] [id number] Feb, Other chronic pain G89.29 and Anxiety F4 1.9 [facility] [address] [id number] [address] [place] [address] Feb, [facility] [address] [id number] [address] [place] [id number] Jan, [facility] [address] [id number] [address] [place] [id number] Jan, [facility] [address] [id number] [address] [place] [phone] Jan, [facility] [address] [facility] [id number] [address] [place] [id number] Jan, [facility] [address] [facility] [id number] [address] [place] [address] Dec, [facility] [employer] [address] [place] [id number] Dec, Peripheral vascular disease I73.9 ; 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 ; Other chronic pain G89.29 ; Anxiety F41.9 ; Reactive depression F32.9 ; Insomnia G47.00 and Type 2 diabetes mellitus without complication, without long-term current use of insulin E11.9 [facility] [place] [address] [id number] [place] [phone] Nov, [facility] [address] [id number] [place] [id number] Nov, Anxiety F41.9 [facility] [address] [facility] [id number] [address] [place] [id number] Nov, [facility] [address] [id number] [place] [id number] Nov, Anxiety F41.9 [employer] [address] [place] [id number] Nov, Status post surgery Z98.890 ; Confused R 41.0 ; Anxiety F41.9 and Other chronic pain G89.29 [facility] [address] [id number] [place] [id number] Nov, Other chronic pain G89.29 [facility] [address] [id number] [address] [place] [address] Oct, [facility] [address] [id number] [place] [id number] Oct, Other chronic pain G89.29 [facility] [address] [id number] [address] [place] [address] Oct, Anxiety F41.9 [facility] [address] [id number] [place] [id number] Sep, Other chronic pain G89.29 [facility] [address] [id number] [place] [id number] Sep, [facility] [employer] [address] [place] [id number] Aug, Dysuria R30.0 and Anxiety F41.9 [facility] [address] [facility] [id number] [address] [place] [address] Aug, [facility] [address] [id number] [place] [id number] Aug, Other chronic pain G89.29 [facility] [address] [id number] [address] [place] [id number] Jul, Other chronic pain G89.29 [facility] [address] [id number] [place] [id number] Jun, [facility] [address] [id number] [place] [id number] Jun, Other chronic pain G89.29 [place] [address] [id number] [address] [place] [address] Jun, [facility] [address] [id number] [address] [place] [id number] May, Other chronic pain G89.29 [facility] [address] [id number] [address] [place] [address] Apr, Other chronic pain G89.29 [facility] [address] [place] [id number] Apr, Reactive depression F32.9 and Pharyngeal dysphagia R13.13 [facility] [address] [id number] [address] [place] [address] Apr, Urinary tract infection with out hematuria, site unspecified N39.0 [facility] [address] [id number] [address] [place] [address] March, Other chronic pain G89.29 [facility] [address] [id number] [address] [place] [phone] Feb, Other chronic pain G89.29 [facility] [address] [id number] [address] [place] [address] Feb, [facility] [id number] [place] [id number] Feb, [facility] [address] [place] [id number] Feb, Dysuria R30.0 and Ventral hernia without obstruction or gangrene K43.9 [facility] [address] [id number] [address] [place] [address] Jan, Other chronic pain G89.29 [facility] [address] [id number] [id number] Dec, Other chronic pain G89.29 [facility] [address] [id number] [address] [place] [address] Nov, Other chronic pain G89.29 [facility] [address] [place] [id number] Nov, Lymphadenitis I88.9 [facility] [address] [id number] [address] [place] [address] Nov, Other chronic pain G89.29 [facility] [address] [id number] [address] [place] [address] Nov, [facility] [address] [id number] [place] [id number] Nov, Other chronic pain G89.29 [facility] [address] [place] [id number] Oct, Low back pain M54.5 ; Hypertension I10 a nd Type 2 diabetes mellitus without complication, without long-term current use of insulin E11.9 [facility] [address] [id number] [address] [place] [address] Oct, [facility] [address] [id number] [address] [place] [id number] Oct, [facility] [address] [id number] [address] [place] [id number] Oct, [facility] [address] [id number] [address] [place] [address] Oct, [facility] [address] [id number] [address] [place] [phone] Sep, [facility] [address] [id number] [address] [place] [address] Sep, [facility] [address] [id number] [address] [place] [address] Aug, Other chronic pain G89.29 [facility] [address] [id number] [address] [place] [phone] Jul, [facility] [address] [id number] [address] [place] [phone] Jul, [facility] [address] [id number] [address] [place] [id number] Jul, [facility] [address] [id number] [address] [place] [id number] Jun, [facility] [address] [id number] [address] [place] [phone] Jun, [facility] [address] [place] [id number] Jun, Low back pain M54.5 ; Other chronic pain G89.29 and Coronary artery disease I25.10 [facility] [address] [id number] [address] [place] [id number] Jun, [facility] [address] [id number] [address] [place] [address] May, [facility] [address] [id number] [address] [place] [address] May, [facility] [address] [id number] [address] [place] [id number] May, Other chronic pain G89.29 [facility] [address] [id number] [address] [place] [address] May, [facility] [address] [id number] [address] [place] [address] Apr, [facility] [address] [id number] [address] [place] [id number] 17 Apr, 2016 Acute cystitis without hemat uria N30.00 [facility] [address] [id number] [address] [place] [id number] 16 Apr, 2016 Acute cystitis without hemat uria N30.00 ; Coronary artery disease I25.10 ; Low back pain M54.5 and Other chronic pain G89.29 [facility] [address] [id number] [address] [place] [address] 13 Apr, 2016 Other chronic pain G89.29 [facility] [address] [id number] [address] [place] [id number] March, Other chronic pain G89.29 [facility] [address] [id number] [address] [place] [address] 18 Feb, 2016 [facility] [address] [id number] [address] [place] [address] 15 Feb, 2016 Arthritis M19.90 [facility] [address] [id number] [address] [place] [address] Feb, [facility] [address] [id number] [address] [place] [address] 30 Jan, 2016 [facility] [address] [id number] [address] [place] [phone] Jan, [facility] [address] [facility] [id number] [address] [place] [id number] Jan, Other chronic pain G89.29 [facility] [address] [id number] [address] [place] [address] Jan, Hypertension I10 ; Coronary artery disease I25.10 and Insomnia G47.00 [facility] [address] [id number] [address] [place] [id number] Jan, [facility] [address] [facility] [id number] [address] [place] [address] Dec, Right hip pain M25.551 [facility] [address] [id number] [address] [place] [id number] Dec, [facility] [address] [id number] [address] [place] [id number] Dec, [facility] [address] [id number] [address] [place] [id number] Dec, [facility] [address] [facility] [id number] [address] [place] [address] Dec, Other chronic pain G89.29 [facility] [address] [id number] [address] [place] [address] Dec, [facility] [address] [id number] [address] [place] [id number] Nov, [facility] [address] [facility] [id number] [address] [place] [id number] Nov, Other chronic pain G89.29 [facility] [address] [id number] [address] [place] [address] Nov, Right hip pain M25.551 and C oronary artery disease I25.10 [facility] [address] [id number] [address] [place] [id number] Nov, Other chronic pain G89.29 [facility] [address] [facility] [id number] [address] [place] [id number] Oct, [facility] [address] [facility] [id number] [address] [place] [phone] Oct, [facility] [address] [facility] [id number] [address] [place] [phone] Sep, [facility] [address] [facility] [id number] [address] [place] [phone] Sep, [facility] [address] [facility] [id number] [address] [place] [id number] Aug, [facility] [address] [facility] [id number] [address] [place] [phone] Aug, Hypertension I10 ; Coronary artery disease I25.10 and Arthritis M19.90 [facility] [address] [id number] [address] [place] [id number] Jun, [facility] [address] [facility] [id number] [address] [place] [phone] Jun, Essential hypertension, jayson gn 401.1 ; Other chronic pain 338.29 and Chronic airway obstruction, not elsewhere classified 496 [facility] [address] [id number] [address] [place] [address], [place] [id number] Jun, [facility] [address] [id number] [address] [place] [address], [place] [id number] Jun, [facility] [address] [id number] [address] [place] [address], [place] [id number] Jun, [facility] [address] [id number] [address] [place] [address], [place] [id number] May, [facility] [address] [id number] [address] [place] [address], [place] [id number] May, [facility] [address] [id number] [address] [place] [address], [place] [id number] Apr, [facility] [address] [id number] [address] [place] [address], [place] [id number] Apr, [facility] [address] [id number] [address] [place] [address], [place] [phone] Apr, [facility] [address] [id number] [address] [place] [address], [place] [id number] March, [facility] [address] [id number] [address] [place] [address], [place] [id number] March, [facility] [address] [id number] [address] [place] [address], [place] [id number] March, [facility] [address] [id number] [address] [place] [address], [place] [address] March, [facility] [address] [id number] [address] [place] [address], [place] [address] March, Sialadenitis 527.2 [facility] [address] [id number] [address] [place] [address], [place] [address] Feb, [facility] [address] [id number] [address] [place] [address], [place] [address] Feb, [facility] [address] [id number] [address] [place] [address], [place] [address] Feb, [facility] [address] [id number] [address] [place] [address], [place] [address] 14 Feb, 2015 [facility] [address] [id number] [address] [place] [address], [place] [address] Feb, [facility] [address] [id number] [address] [place] [address], [place] [address] Jan, [facility] [address] [id number] [address] [place] [address], [place] [address] Jan, [facility] [address] [id number] [address] [place] [address], [place] [address] Jan, [facility] [address] [id number] [address] [place] [address], [place] [address] Jan, [facility] [address] [id number] [address] [place] [address], [place] [address] Jan, [facility] [address] [id number] [address] [place] [address], [place] [address] Jan, [facility] [address] [id number] [address] [place] [address], [place] [address] Dec, [facility] [address] [id number] [address] [place] [address], [place] [address] Dec, [facility] [address] [id number] [address] [place] [address], [place] [address] Dec, 2014 [facility] [address] [id number] [address] [place] [id number] Dec, 2014 [facility] [address] [id number] [address] [place] [address], [place] [address] Dec, [facility] [address] [id number] [address] [place] [address], [place] [address] Dec, [facility] [address] [id number] [address] [place] [address], [place] [address] Nov, [facility] [address] [id number] [address] [place] [address], [place] [address] Nov, [facility] [address] [id number] [address] [place] [address], [place] [address] Nov, [facility] [address] [id number] [address] [place] [address], [place] [address] Nov, [facility] [address] [id number] [address] [place] [address], [place] [address] Nov, [facility] [address] [id number] [address] [place] [address], [place] [address] Nov, [facility] [address] [id number] [address] [place] [address], [place] [address] Nov, [facility] [address] [id number] [address] [place] [address], [place] [address] Nov, [facility] [address] [id number] [address] [place] [address], [place] [address] Nov, [facility] [address] [id number] [address] [place] [address], [place] [address] Nov, [facility] [address] [id number] [address] [place] [address], [place] [address] Nov, [facility] [address] [id number] [address] [place] [address], [place] [address] Nov, [facility] [address] [id number] [address] [place] [address], [place] [address] Nov, [facility] [address] [id number] [address] [place] [address], [place] [address] Nov, [facility] [address] [id number] [address] [place] [address], [place] [address] Oct, [facility] [address] [id number] [address] [place] [address], [place] [address] Oct, [facility] [address] [id number] [address] [place] [address], [place] [address] Oct, [facility] [address] [id number] [address] [place] [address], [place] [address] 18 Oct, 2014 [facility] [address] [id number] [address] [place] [address], [place] [address] 18 Oct, 2014 [facility] [address] [id number] [address] [place] [address], [place] [address] Oct, [facility] [address] [id number] [address] [place] [address], [place] [address] Oct, [facility] [address] [id number] [address] [place] [address], [place] [address] Oct, [facility] [address] [id number] [address] [place] [address], [place] [address] Oct, [facility] [address] [id number] [address] [place] [address], [place] [address] Sep, [facility] [address] [id number] [address] [place] [address], [place] [address] Sep, [facility] [address] [id number] [address] [place] [address], [place] [address] Sep, [facility] [address] [id number] [address] [place] [address], [place] [address] Sep, [facility] [address] [id number] [address] [place] [address], [place] [address] Sep, [facility] [address] [id number] [address] [place] [address], [place] [address] Sep, [facility] [address] [id number] [address] [place] [address], [place] [address] Sep, [facility] [address] [id number] [address] [place] [address], [place] [address] Sep, [facility] [address] [id number] [address] [place] [address], [place] [address] Sep, [facility] [address] [id number] [address] [place] [id number] Sep, [facility] [address] [id number] [address] [place] [address], [place] [address] Sep, [facility] [address] [id number] [address] [place] [address], [place] [address] Sep, [facility] [address] [id number] [address] [place] [address], [place] [address] Aug, [facility] [address] [id number] [address] [place] [address], [place] [address] Aug, [facility] [address] [id number] [address] [place] [address], [place] [address] Aug, [facility] [address] [id number] [address] [place] [address], [place] [address] Aug, [facility] [address] [id number] [address] [place] [address], [place] [address] Aug, [facility] [address] [id number] [address] [place] [address], [place] [address] Aug, [facility] [address] [id number] [address] [place] [address], [place] [address] Aug, [facility] [address] [id number] [address] [place] [address], [place] [address] 17 Aug, 2014 [facility] [address] [id number] [address] [place] [address] 30 Jul, 2013 [facility] [address] [id number] [address] [place] [address], [place] [address] 30 Sep, 2013 [facility] [address] [id number] [address] [place] [address], [place] [address] 30 Sep, 2013 [facility] [address] [id number] [address] [place] [address], [place] [address] 30 Sep, 2013 [facility] [address] [id number] [address] [place] [address], [place] [address] 25 Jul, 2013 [facility] [address] [id number] [facility] [address] Jul, [facility] [address] [id number] [facility] [place] [address] Jul, [facility] [address] [id number] [facility] [place] [address] Jul, [facility] [address] [id number] [address] [place] [address], [place] [address] Jul, [facility] [address] [id number] [facility] [place] [address] Jul, [facility] [address] [id number] [address] [place] [address], [place] [address] Jun, [facility] [address] [id number] [address] [place] [address], [place] [address] Jun, [facility] [address] [id number] [address] [place] [address], [place] [address] Jun, [facility] [address] [id number] [address] [place] [address], [place] [address] Jun, [facility] [address] [id number] [address] [place] [address], [place] [address] Jun, [facility] [address] [id number] [address] [place] [address], [place] [address] Jun, [facility] [address] [id number] [address] [place] [address], [place] [address] Jun, [facility] [address] [id number] [address] [place] [address], [place] [address] Jun, [facility] [address] [id number] [address] [place] [address], [place] [address] Jun, [facility] [address] [id number] [address] [place] [address], [place] [address] Jun, [facility] [address] [id number] [address] [place] [address], [place] [address] Jun, [facility] [address] [id number] [facility] [address] Jun, [facility] [address] [id number] [facility] [place] [address] Jun, [facility] [address] [id number] [facility] [place] [address] Jun, [facility] [address] [id number] [address] [place] [address], [place] [address] Jun, [facility] [address] [id number] [address] [place] [address], [place] [address] Jun, [facility] [address] [id number] [address] [place] [address], [place] [address] Jun, [facility] [address] [id number] [address] [place] [address], [place] [address] Jun, [facility] [address] [id number] [address] [place] [address], [place] [address] Jun, [facility] [address] [id number] [address] [place] [address], [place] [address] Jun, [facility] [address] [id number] [address] [place] [address], [place] [address] Jun, [facility] [address] [id number] [address] [place] [address], [place] [address] Jun, [facility] [address] [id number] [address] [place] [address], [place] [address] May, [facility] [address] [id number] [address] [place] [address], [place] [address] May, [facility] [address] [id number] [address] [place] [address], [place] [address] May, [facility] [address] [id number] [address] [place] [address], [place] [address] May, [facility] [address] [id number] [address] [place] [address], [place] [address] May, 2013 [facility] [address] [id number] [facility] [place] [address] May, 2013 [facility] [address] [id number] [facility] [place] [address] May, 2013 [facility] [address] [id number] [facility] [place] [address] May, 2013 [facility] [address] [id number] [facility] [place] [address] May, 2013 [facility] [address] [id number] [address] [place] [address], [place] [address] May, [facility] [address] [id number] [address] [place] [address], [place] [address] May, [facility] [address] [id number] [address] [place] [address], [place] [address] May, [facility] [address] [id number] [address] [place] [address], [place] [address] May, [facility] [address] [id number] [address] [place] [address], [place] [address] Apr, [facility] [address] [id number] [address] [place] [address], [place] [address] Apr, [facility] [address] [id number] [address] [place] [address], [place] [address] Apr, [facility] [address] [id number] [address] [place] [address], [place] [address] Apr, [facility] [address] [id number] [address] [place] [address], [place] [address] Apr, [facility] [address] [id number] [address] [place] [address], [place] [address] Apr, [facility] [address] [id number] [address] [place] [address], [place] [address] Apr, [facility] [address] [id number] [facility] [place] [address] Apr, [facility] [address] [id number] [address] [place] [address], [place] [address] Apr, [facility] [address] [id number] [address] [place] [address], [place] [address] March, [facility] [address] [id number] [address] [place] [address], [place] [address] March, [facility] [address] [id number] [address] [place] [address], [place] [address] March, [facility] [address] [id number] [address] [place] [address], [place] [address] March, [facility] [address] [id number] [address] [place] [address], [place] [address] March, [facility] [address] [id number] [address] [place] [address], [place] [address] March, [facility] [address] [id number] [address] [place] [address], [place] [address] March, [facility] [address] [id number] [address] [place] [address], [place] [address] March, [facility] [address] [id number] [address] [place] [address], [place] [address] March, [facility] [address] [id number] [address] [place] [address], [place] [address] March, [facility] [address] [id number] [address] [place] [address], [place] [address] March, [facility] [address] [id number] [address] [place] [address], [place] [address] March, [facility] [address] [id number] [address] [place] [address], [place] [address] March, [facility] [address] [id number] [address] [place] [address], [place] [address] March, [facility] [address] [id number] [address] [place] [address], [place] [address] March, [facility] [address] [id number] [address] [place] [address], [place] [address] March, [facility] [address] [id number] [address] [place] [address], [place] [address] March, [facility] [address] [id number] [address] [place] [address], [place] [address] March, [facility] [address] [id number] [address] [place] [address], [place] [address] March, [facility] [address] [id number] [address] [place] [address], [place] [address] March, [facility] [address] [id number] [address] [place] [address], [place] [address] Feb, [facility] [address] [id number] [address] [place] [address], [place] [address] Feb, [facility] [address] [id number] [address] [place] [address], [place] [address] Feb, [facility] [address] [id number] [address] [place] [address], [place] [address] Feb, [facility] [address] [id number] [address] [place] [address], [place] [address] Feb, [facility] [address] [id number] [address] [place] [address], [place] [address] Feb, [facility] [address] [id number] [address] [place] [address], [place] [address] Feb, [facility] [address] [id number] [address] [place] [address], [place] [address] Feb, [facility] [address] [id number] [address] [place] [address], [place] [address] Jan, [facility] [address] [id number] [facility] [place] [address] 26 Jan, 2014 [facility] [address] [id number] [facility] [place] [address] 24 Jan, 2014 [facility] [address] [id number] [facility] [place] [address] 24 Jan, 2014 [facility] [address] [id number] [address] [place] [address], [place] [address] Jan, [facility] [address] [id number] [address] [place] [address], [place] [address] Jan, [facility] [address] [id number] [address] [place] [address], [place] [address] Jan, [facility] [address] [id number] [address] [place] [address], [place] [address] Jan, [facility] [address] [id number] [address] [place] [address], [place] [address] Jan, [facility] [address] [id number] [address] [place] [address], [place] [address] Jan, [facility] [address] [id number] [address] [place] [address], [place] [address] 27 Dec, 2013 [facility] [address] [id number] [address] [place] [address], [place] [id number] Dec, [facility] [address] [id number] [address] [place] [address], [place] [id number] 26 Dec, 2013 [facility] [address] [id number] [address] [place] [address], [place] [id number] 2013 [facility] [address] [id number] [address] [place] [address], [place] [id number] 2013 [facility] [address] [id number] [address] [place] [address], [place] [id number] 13 Dec, 2013 [facility] [address] [id number] [address] [place] [address], [place] [id number] Dec, [facility] [address] [id number] [address] [place] [address], [place] [id number] Dec, [facility] [address] [id number] [address] [place] [address], [place] [id number] Nov, [facility] [address] [id number] [address] [place] [address], [place] [id number] Nov, [facility] [address] [id number] [address] [place] [address], [place] [id number] Nov, [facility] [address] [id number] [address] [place] [address], [place] [id number] Nov, [facility] [address] [id number] [address] [place] [address], [place] [id number] Nov, [facility] [address] [id number] [address] [place] [address], [place] [phone] Nov, [facility] [address] [id number] [address] [place] [address], [place] [id number] Nov, [facility] [address] [id number] [address] [place] [address], [place] [id number] Nov, [facility] [address] [id number] [address] [place] [address], [place] [id number] Nov, [facility] [address] [id number] [address] [place] [address], [place] [id number] Nov, [facility] [address] [id number] [address] [place] [address], [place] [id number] Nov, [facility] [address] [id number] [address] [place] [address], [place] [id number] Nov, [facility] [address] [id number] [address] [place] [address], [place] [id number] Nov, [facility] [address] [id number] [address] [place] [address], [place] [id number] Oct, [facility] [address] [id number] [address] [place] [address], [place] [id number] 30 Oct, 2013 [facility] [address] [id number] [address] [place] [address], [place] [id number] 26 Oct, 2013 [facility] [address] [id number] [address] [place] [address], [place] [id number] Oct, [facility] [address] [id number] [address] [place] [address], [place] [phone] Oct, [facility] [address] [id number] [address] [place] [address], [place] [id number] [address], [address] [facility] [address] [id number] [address] [place] [address], [place] [id number] [address], [address] [facility] [address] [id number] [address] [place] [address], [place] [id number] [address], [address] [facility] [address] [id number] [address] [place] [address], [place] [id number] [address] Oct, [address] [facility] [address] [id number] [address] [place] [address], [place] [id number] 17 Oct, 2013 [facility] [address] [id number] [address] [place] [address], [place] [id number] 03 Oct, 2013 [facility] [address] [id number] [address] [place] [address], [place] [id number] 03 Oct, [address] [facility] [address] [id number] [address] [place] [address], [place] [id number] 02 Oct, [address] [facility] [address] [id number] [address] [place] [address], [place] [id number] 02 Oct, 2013 [facility] [address] [id number] [address] [place] [address], [place] [id number] [address] Sep, [address] [facility] [address] [id number] [address] [place] [address], [place] [id number] [address], [address] [facility] [address] [id number] [address] [place] [address], [place] [id number] Sep, [facility] [address] [id number] [address] [place] [address], [place] [id number] Sep, [facility] [address] [id number] [address] [place] [address], [place] [id number] Sep, [facility] [address] [id number] [address] [place] [address], [place] [id number] Sep, [facility] [address] [id number] [address] [place] [address], [place] [id number] Sep, [facility] [address] [id number] [address] [place] [address], [place] [id number] Sep, [facility] [address] [id number] [address] [place] [address], [place] [id number] Sep, [facility] [address] [id number] [address] [place] [address], [place] [id number] Sep, [facility] [address] [id number] [address] [place] [id number] Aug, [facility] [address] [id number] [address] [place] [id number] Aug, [facility] [address] [id number] [address] [place] [id number] Aug, [facility] [address] [id number] [address] [place] [id number] Aug, [facility] [address] [id number] [address] [place] [id number] Aug, [facility] [address] [id number] [address] [place] [id number] Aug, [facility] [address] [id number] [address] [place] [id number] Aug, [facility] [address] [id number] [address] [place] [address] [id number] Aug, [facility] [address] [id number] [address] [place] [id number] 22 Aug, 2013 [facility] [address] [id number] [address] [place] [address], [place] [id number] 22 Aug, 2013 [facility] [address] [id number] [address] [place] [id number] 18 Aug, 2013 [facility] [address] [id number] [address] [place] [address], [place] [address] 18 Aug, 2013 [facility] [address] [id number] [address] [place] [id number] 18 Aug, 2013 [facility] [address] [id number] [address] [place] [address], [place] [address] 18 Aug, 2013 [facility] [address] [id number] [address] [place] [address], [place] [address] 17 Aug, 2013 [facility] [address] [id number] [address] [place] [address], [place] [address] 14 Aug, 2013 [facility] [address] [id number] [address] [place] [address], [place] [address] 14 Aug, 2013 [facility] [address] [id number] [address] [place] [address], [place] [id number] Aug, [facility] [address] [id number] [address] [place] [address], [place] [id number] 20 Jul, 2013 [facility] [address] [id number] [address] [place] [address], [place] [address] 19 Jul, 2012 [facility] [address] [id number] [address] [place] [address], [place] [address] 18 Jul, 2012 [facility] [address] [id number] [address] [place] [address], [place] [id number] 11 Jul, 2013 [facility] [address] [id number] [address] [place] [address], [place] [id number] 11 Jul, 2013 [facility] [address] [id number] [address] [place] [address], [place] [address] 28 Jun, 2013 [facility] [address] [id number] [facility] [place] [address] Jun, [facility] [address] [id number] [facility] [place] [address] Jun, [facility] [address] [id number] [address] [place] [address], [place] [address] Jun, [facility] [address] [id number] [address] [place] [address], [place] [address] Jun, [facility] [address] [id number] [address] [place] [address], [place] [address] Jun, [facility] [address] [id number] [address] [place] [address], [place] [address] Jun, [facility] [address] [id number] [address] [place] [address], [place] [address] Jun, [facility] [address] [id number] [address] [place] [address], [place] [address] Jun, [facility] [address] [id number] [address] [place] [address], [place] [address] Jun, [facility] [address] [id number] [address] [place] [address], [place] [address] May, [facility] [address] [id number] [address] [place] [address], [place] [address] May, [facility] [address] [id number] [address] [place] [address], [place] [address] May, [facility] [address] [id number] [address] [place] [address], [place] [address] May, [facility] [address] [id number] [address] [place] [address], [place] [id number] May, [facility] [address] [id number] [address] [place] [address], [place] [address] May, [facility] [address] [id number] [address] [place] [address], [place] [address] May, [facility] [address] [id number] [address] [place] [address], [place] [address] May, [facility] [address] [id number] [address] [place] [address], [place] [address] May, [facility] [address] [id number] [address] [place] [address], [place] [address] Apr, [facility] [address] [id number] [address] [place] [address], [place] [address] Apr, [facility] [address] [id number] [address] [place] [address], [place] [address] Apr, [facility] [address] [id number] [address] [place] [address], [place] [address] Apr, [facility] [address] [id number] [address] [place] [address], [place] [address] Apr, [facility] [address] [id number] [address] [place] [address], [place] [address] Apr, [facility] [address] [id number] [address] [place] [address], [place] [address] Apr, [facility] [address] [id number] [address] [place] [address], [place] [address] March, [facility] [address] [id number] [address] [place] [address], [place] [address] Feb, [facility] [address] [id number] [address] [place] [address], [place] [address] Feb, [facility] [address] [id number] [address] [place] [address], [place] [address] Feb, [facility] [address] [id number] [address] [place] [address], [place] [address] Jan, [facility] [address] [id number] [address] [place] [address], [place] [address] Jan, [facility] [address] [id number] [address] [place] [address], [place] [address] 19 Jan, 2013 [facility] [address] [id number] [address] [place] [address], [place] [address] 14 Jan, 2013 [facility] [address] [id number] [address] [place] [address], [place] [address] 12 Jan, 2013 [facility] [address] [id number] [address] [place] [address], [place] [address] 08 Jan, 2013 [facility] [address] [id number] [address] [place] [address], [place] [address] 07 Jan, 2013 [facility] [address] [id number] [address] [place] [address], [place] [address] 04 Jan, 2013 [facility] [address] [id number] [address] [place] [address], [place] [address] 28 Dec, 2012 [facility] [address] [id number] [address] [place] [address], [place] [address] 25 Dec, 2012 [facility] [address] [id number] [address] [place] [address], [place] [address] 13 Dec, 2012 [facility] [address] [id number] [address] [place] [address], [place] [address] 11 Dec, 2012 [facility] [address] [id number] [address] [place] [address], [place] [address] 07 Dec, 2012 [facility] [address] [id number] [address] [place] [address], [place] [address] 06 Dec, 2012 [facility] [address] [id number] [address] [place] [address], [place] [address] 05 Dec, 2012 [facility] [address] [id number] [address] [place] [address], [place] [address] 31 Nov, 2012 [facility] [address] [id number] [address] [place] [address], [place] [address] 24 Nov, 2012 [facility] [address] [id number] [address] [place] [address], [place] [address] 18 Nov, 2012 [facility] [address] [id number] [address] [place] [address], [place] [address] 15 Nov, 2012 [facility] [address] [id number] [address] [place] [address], [place] [address] Nov, [facility] [address] [id number] [address] [place] [address], [place] [address] Nov, [facility] [address] [id number] [address] [place] [address], [place] [address] Nov, [facility] [address] [id number] [address] [place] [address], [place] [address] Oct, [facility] [address] [id number] [address] [place] [address], [place] [address] Oct, [facility] [address] [id number] [address] [place] [address], [place] [address] Oct, [facility] [address] [id number] [address] [place] [address], [place] [address] Oct, [facility] [address] [id number] [address] [place] [address], [place] [address] Oct, [facility] [address] [id number] [address] [place] [address], [place] [address] Oct, [facility] [address] [id number] [address] [place] [address], [place] [address] Oct, [facility] [address] [id number] [address] [place] [address], [place] [address] Oct, [facility] [address] [id number] [address] [place] [address], [place] [address] Oct, [facility] [address] [id number] [address] [place] [address], [place] [address] 05 Oct, 2012 [facility] [address] [id number] [address] [place] [address], [place] [address] Oct, [facility] [address] [id number] [address] [place] [address], [place] [address] Oct, [facility] [address] [id number] [address] [place] [address], [place] [address] Sep, [facility] [address] [id number] [address] [place] [id number] Sep, [facility] [address] [id number] [address] [place] [address], [place] [address] Sep, [facility] [address] [id number] [address] [place] [address], [place] [address] Sep, [facility] [address] [id number] [address] [place] [address], [place] [address] Sep, [facility] [address] [id number] [address] [place] [address], [place] [address] Sep, [facility] [address] [id number] [address] [place] [address], [place] [address] Sep, [facility] [address] [id number] [address] [place] [id number] Sep, [facility] [address] [id number] [address] [place] [address], [place] [address] Sep, [facility] [address] [id number] [address] [place] [id number] Sep, [facility] [address] [id number] [address] [place] [address], [place] [address] Sep, [facility] [address] [id number] [address] [place] [id number] Aug, [facility] [address] [id number] [address] [place] [id number] Aug, [facility] [address] [id number] [address] [place] [id number] Aug, [facility] [address] [id number] [address] [place] [id number] Aug, [facility] [address] [id number] [address] [place] [address], [place] [address] Aug, [facility] [address] [id number] [address] [place] [address], [place] [address] Aug, [facility] [address] [id number] [address] [place] [address], [place] [address] Aug, [facility] [address] [id number] [address] [place] [address], [place] [address] Aug, [facility] [address] [id number] [address] [place] [address], [place] [address] Aug, [facility] [address] [id number] [address] [place] [address], [place] [address] Aug, [facility] [address] [id number] [address] [place] [address], [place] [address] 22 Jul, 2012 [facility] [address] [id number] [address] [place] [address], [place] [address] 20 Jul, 2012 [facility] [address] [id number] [address] [place] [address], [place] [address] 10 Jul, 2012 [facility] [address] [id number] [address] [place] [address], [place] [address] 06 Jul, 2012 [facility] [address] [id number] [address] [place] [address], [place] [address] 30 Jun, 2012 [facility] [address] [id number] [address] [place] [address], [place] [address] Jun, [facility] [address] [id number] [address] [place] [address], [place] [address] 16 Jun, 2012 [facility] [address] [id number] [address] [place] [address], [place] [address] Jun, [facility] [address] [id number] [address] [place] [address], [place] [address] Jun, [facility] [address] [id number] [address] [place] [address], [place] [address] Jun, [facility] [address] [id number] [address] [place] [address], [place] [address] Jun, [facility] [address] [id number] [address] [place] [address], [place] [address] May, [facility] [address] [id number] [address] [place] [address], [place] [address] May, [facility] [address] [id number] [address] [place] [address], [place] [address] May, [facility] [address] [id number] [address] [place] [address], [place] [address] May, [facility] [address] [id number] [address] [place] [address], [place] [address] May, [facility] [address] [id number] [address] [place] [address], [place] [address] Apr, [facility] [address] [id number] [address] [place] [address], [place] [address] Apr, [facility] [address] [id number] [address] [place] [address], [place] [address] Apr, [facility] [address] [id number] [address] [place] [address], [place] [address] Apr, [facility] [address] [id number] [address] [place] [address], [place] [address] Apr, [facility] [address] [id number] [address] [place] [address], [place] [address] March, [facility] [address] [id number] [address] [place] [address], [place] [address] March, [facility] [address] [id number] [address] [place] [address], [place] [address] March, [facility] [address] [id number] [address] [place] [address], [place] [address] March, [facility] [address] [id number] [address] [place] [address], [place] [address] March, [facility] [address] [id number] [address] [place] [address], [place] [address] March, [facility] [address] [id number] [address] [place] [address], [place] [address] March, [facility] [address] [id number] [address] [place] [address], [place] [address] March, [facility] [address] [id number] [address] [place] [address], [place] [address] March, [facility] [address] [id number] [address] [place] [address], [place] [address] March, [facility] [address] [id number] [address] [place] [address], [place] [address] Feb, [facility] [address] [id number] [address] [place] [address], [place] [address] Feb, [facility] [address] [id number] [address] [place] [address], [place] [address] Feb, [facility] [address] [id number] [address] [place] [address], [place] [address] Feb, [facility] [address] [id number] [address] [place] [address], [place] [address] Feb, [facility] [address] [id number] [address] [place] [address], [place] [address] Feb, [facility] [address] [id number] [address] [place] [address], [place] [address] Feb, [facility] [address] [id number] [address] [place] [address], [place] [address] Feb, [facility] [address] [id number] [address] [place] [address], [place] [address] Feb, [facility] [address] [id number] [address] [place] [address], [place] [address] Jan, [facility] [address] [id number] [address] [place] [address], [place] [address] 07 Jan, 2012 [facility] [address] [id number] [address] [place] [address], [place] [address] 05 Jan, 2012 [facility] [address] [id number] [address] [place] [address], [place] [address] Jan, [facility] [address] [id number] [address] [place] [address], [place] [address] 29 Dec, 2011 [facility] [address] [id number] [address] [place] [address], [place] [address] Dec, [facility] [address] [id number] [address] [place] [address], [place] [address] Nov, [facility] [address] [id number] [address] [place] [address], [place] [address] Nov, [facility] [address] [id number] [address] [place] [address], [place] [address] Nov, [facility] [address] [id number] [address] [place] [address], [place] [address] Nov, [facility] [address] [id number] [address] [place] [address], [place] [id number] Nov, [facility] [address] [id number] [address] [place] [address], [place] [id number] Oct, [facility] [address] [id number] [address] [place] [address], [place] [id number] Oct, [facility] [address] [id number] [address] [place] [address], [place] [phone] Oct, [facility] [address] [id number] [address] [place] [address], [place] [phone] Oct, [facility] [address] [id number] [address] [place] [address], [place] [id number] Oct, [facility] [address] [id number] [address] [place] [phone] Oct, [facility] [address] [facility] [id number] [address] [place] [id number] Oct, [facility] [address] [facility] [id number] [address] [place] [phone] Oct, [facility] [address] [facility] [id number] [address] [place] [phone] Sep, IMMUNIZATIONS No Known Immunizations SOCIAL HISTORY Never Assessed REASON FOR VISIT PLAN OF CARE VITAL SIGNS MEDICATIONS Unknown Medications RESULTS No Results PROCEDURES Procedure Date Ordered Result Body Site PSYTX PT&/FAMILY 45 MINUTES June 17, 2013 INSTRUCTIONS MEDICATIONS ADMINISTERED No Known Medications MEDICAL (GENERAL) HISTORY Type Description Date Medical History aortic abdominal aneurysm moderate 04/06 18 Medical History illiac aneurysm 03/2018 Surgical History No Surgical history information Hospitalization History [facility]- Urosepsis, ab d pain and fever, discharged 11/27/2017 11/26/2017 Hospitalization History [facility]- Went Unrepsonsive, Hit head 2017 Hospitalization History [facility]- Back Pain 05/05/ 8
--- OUTSIDE RECORDS SUMMARY | 2020-06-18 15:20 | XMS REPORT ---
Author Sanjuanita Roberts [facility] Address [address] [place] [address] Care Team Providers Care Metal Off Bearer Name Role Phone ELIAZAR BLANCO Unavailable PROBLEMS Type Condition ICD9-CM Code [id number] Code Onset Dates Condition S tatus SNOMED Code Problem Coronary artery disease I25.10 Active 51295495 Problem Hypertension I10 Active 9995698 3 Problem Other chronic pain G89.29 Active 8 6754625 Problem Hyperlipidemia E78.5 Active 75349 004 Problem Type 2 diabetes mellitus wit hout complication, without long-term current use of insulin E11.9 Active 662579897 Problem Low back pain M54.5 Active 317668 009 Problem Pharyngeal dysphagia R13.13 Active 90069046294075 Problem Anxiety F41.9 Active 23353425 Problem Peripheral vascular disease I73.9 Ac tive 151609232 Problem Suprapubic catheter Z93.59 Active 655001094 Problem Reactive depression F32.9 Active 38764742 Problem Neurogenic bladder N31.9 Active 3 48044163 Problem Ventral hernia without obstruction or gangrene K43 .9 Active 129575494 Problem Insomnia G47.00 Active 684225581 Problem Paroxysmal atrial fibrillation I48.0 Active 160508226 Problem Postmenopausal atrophic vaginitis N95.2 Active 62118362 Problem Encounter for suprapubic catheter care Z43.5 Active 032499750 ALLERGIES No Information ENCOUNTERS Encounter Location Date Diagnosis [facility] [employer] [address] [place] [id number] Jun, [facility] [address] [facility] [id number] [address] [place] [id number] May, [facility] [address] [facility] [id number] [address] [place] [id number] Apr, [facility] [address] [place] [id number] Apr, Strain of right shoulder, subsequent enc ounter S46.911D [facility] [address] [id number] [address] [place] [id number] 14 Apr, 2019 Strain of right shoulder, scherer bsequent encounter S46.911D and Anxiety F41.9 Via [facility] [address] [place] [id number] 13 Apr, 2019 Type 2 diabetes mellitus without complic ation, without long-term current use of insulin E11.9 and Neurogenic bladder N31.9 Via [facility] [address] [place] [id number] 11 Apr, 2019 Strain of right shoulder, subsequent enc ounter S46.911D ; History of GI bleed Z87.19 ; Neurogenic bladder N31.9 and Reactive depression F32.9 [place] [address] [id number] [address] [place] [id number] 10 Apr, 2019 Acute pain of left shoulder M25.512 [place] [address] [id number] [address] [place] [id number] 07 Apr, 2019 [place] [address] [id number] [address] [place] [id number] 06 Apr, 2019 Anxiety F41.9 and 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 Via [facility] [address] [place] [id number] March, Gastrointestinal hemorrhage associated w ith acute gastritis K29.01 [place] [address] [id number] [address] [place] [phone] March, [facility] [address] [place] [id number] March, Bronchitis J40 [place] [address] [id number] [address] [place] [phone] March, Cough R05 [place] [address] [id number] [address] [place] [id number] March, Other chronic pain G89.29 [place] [address] [id number] [address] [place] [phone] March, Anxiety F41.9 [facility] [address] [id number] [address] [place] [id number] March, [facility] [address] [id number] [address] [place] [id number] Feb, Other chronic pain G89.29 [facility] [address] [id number] [address] [place] [id number] Feb, Anxiety F41.9 [facility] [address] [id number] [address] [place] [id number] Feb, Other chronic pain G89.29 [facility] [address] [place] [id number] Feb, Neurogenic bladder N31.9 and Suprapubic catheter Z93.59 [facility] [address] [id number] [address] [place] [id number] Jan, Anxiety F41.9 [facility] [address] [id number] [address] [place] [id number] Dec, Anxiety F41.9 [facility] [address] [id number] [address] [place] [id number] Dec, Other chronic pain G89.29 an d Anxiety F41.9 [facility] [address] [id number] [address] [place] [phone] Dec, [facility] [address] [place] [id number] Dec, Neurogenic bladder N31.9 and Suprapubic catheter Z93.59 [facility] [address] [id number] [address] [place] [id number] Nov, Other chronic pain G89.29 an d Anxiety F41.9 [facility] [address] [id number] [address] [place] [phone] Nov, [facility] [address] [place] [id number] Nov, Suprapubic catheter Z93.59 [facility] [address] [id number] [address] [place] [id number] Oct, Other chronic pain G89.29 an d Anxiety F41.9 [facility] [address] [id number] [address] [place] [phone] Oct, [facility] [address] [id number] [address] [place] [id number] Oct, Suprapubic catheter Z93.59 [facility] [address] [id number] [address] [place] [phone] Oct, [employer] [address] [place] [id number] Oct, [facility] [address] [id number] [address] [place] [id number] Oct, Anxiety F41.9 [facility] [address] [id number] [address] [place] [phone] Oct, Anxiety F41.9 [employer] [address] [place] [id number] Oct, Other chronic pain G89.29 [facility] [address] [id number] [address] [place] [id number] Sep, Other chronic pain G89.29 [employer] [address] [place] [id number] Sep, Suprapubic catheter Z93.59 and Cervicalg ia M54.2 [facility] [address] [id number] [address] [place] [id number] Sep, [facility] [address] [id number] [address] [place] [phone] Sep, [facility] [address] [id number] [address] [place] [id number] Sep, [employer] [address] [place] [id number] Aug, Cystitis N30.90 [facility] [address] [id number] [address] [place] [id number] Aug, [facility] [address] [id number] [address] [place] [id number] Aug, Other chronic pain G89.29 [facility] [address] [id number] [address] [place] [id number] Aug, Via [employer] [address] [place] [id number] Aug, Encounter for suprapubic catheter care Z 43.5 [place] [address] [id number] [address] [place] [phone] Jul, Via [employer] [address] [place] [id number] Jul, [place] [address] [id number] [address] [place] [address] Jul, Other chronic pain G89.29 [facility] [address] [id number] [address] [place] [phone] Jul, [facility] [address] [id number] [address] [place] [id number] Jul, [employer] [address] [place] [id number] Jun, Postmenopausal atrophic vaginitis N95.2 [facility] [address] [id number] [address] [place] [id number] Jun, Other chronic pain G89.29 [facility] [address] [id number] [address] [place] [phone] Jun, [employer] [address] [place] [id number] May, Anxiety F41.9 ; Type 2 diabetes mellitus without complication, without long-term current use of insulin E11.9 ; Hypertension I10 ; Low back pain M54.5 ; Paroxysmal atrial fibrillation I48.0 and 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 [facility] [address] [id number] [address] [place] [id number] May, Other chronic pain G89.29 [facility] [facility] [address] [place] [id number] May, Low back pain M54.5 [facility] [address] [id number] [address] [place] [id number] May, [facility] [address] [id number] [address] [place] [id number] Apr, Other chronic pain G89.29 [facility] [address] [id number] [address] [place] [phone] Apr, [facility] [address] [id number] [address] [place] [id number] Apr, [facility] [employer] [address] [place] [id number] Apr, Closed compression fracture of L3 lumbar vertebra with routine healing, subsequent encounter S32.030D [facility] [employer] [address] [place] [id number] Apr, Low back pain M54.5 [facility] [address] [place] [id number] Apr, Coccydynia M53.3 [facility] [address] [id number] [address] [place] [phone] March, [facility] [address] [id number] [address] [place] [id number] March, Other chronic pain G89.29 [facility] [address] [id number] [address] [place] [phone] March, [facility] [address] [id number] [address] [place] [phone] March, [facility] [address] [id number] [address] [place] [id number] Feb, [facility] [address] [id number] [address] [place] [id number] Feb, Other chronic pain G89.29 Via [facility] [employer] [facility] [facility] [address] [place] [id number] Feb, Other chronic pain G89.29 and Anxiety F4 1.9 [facility] [address] [id number] [address] [place] [phone] Feb, [facility] [address] [id number] [address] [place] [id number] Jan, [facility] [address] [id number] [address] [place] [id number] Jan, [facility] [address] [id number] [address] [place] [id number] Jan, [facility] [address] [facility] [id number] [address] [place] [phone] Jan, [facility] [address] [facility] [id number] [address] [place] [id number] Dec, [facility] [employer] [address] [place] [id number] Dec, Peripheral vascular disease I73.9 ; 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 ; Other chronic pain G89.29 ; Anxiety F41.9 ; Reactive depression F32.9 ; Insomnia G47.00 and Type 2 diabetes mellitus without complication, without long-term current use of insulin E11.[address] [facility] [place] [address] [id number] [address] Nov, [facility] [address] [id number] [place] [id number] Nov, Anxiety F41.9 [facility] [address] [facility] [id number] [address] [place] [phone] Nov, [facility] [address] [id number] [place] [id number] Nov, Anxiety F41.9 [facility] [employer] [address] [place] [id number] Nov, Status post surgery Z98.890 ; Confused R 41.0 ; Anxiety F41.9 and Other chronic pain G89.29 [facility] [address] [id number] [place] [id number] Nov, Other chronic pain G89.29 [facility] [address] [id number] [address] [place] [phone] Oct, [facility] [address] [id number] [place] [id number] Oct, Other chronic pain G89.29 [facility] [address] [id number] [address] [place] [id number] Oct, Anxiety F41.9 [facility] [address] [id number] [place] [id number] Sep, Other chronic pain G89.29 [facility] [address] [id number] [place] [id number] Sep, [facility] [employer] [address] [place] [id number] Aug, Dysuria R30.0 and Anxiety F41.9 [facility] [address] [facility] [id number] [address] [place] [id number] Aug, [facility] [address] [id number] [place] [id number] Aug, Other chronic pain G89.29 [facility] [address] [id number] [address] [place] [id number] Jul, Other chronic pain G89.29 [facility] [address] [id number] [place] [id number] Jun, [facility] [address] [id number] [place] [id number] Jun, Other chronic pain G89.29 [place] [address] [id number] [address] [place] [id number] Jun, [facility] [address] [id number] [address] [place] [phone] May, Other chronic pain G89.29 [facility] [address] [id number] [address] [place] [phone] Apr, Other chronic pain G89.29 [facility] [place] [address] [place] [id number] Apr, Reactive depression F32.9 and Pharyngeal dysphagia R13.13 [facility] [address] [id number] [address] [place] [id number] Apr, Urinary tract infection with out hematuria, site unspecified N39.0 [facility] [address] [id number] [address] [place] [phone] March, Other chronic pain G89.29 [facility] [address] [id number] [address] [place] [id number] Feb, Other chronic pain G89.29 [facility] [address] [id number] [address] [place] [phone] Feb, [facility] [id number] [place] [id number] Feb, Via [facility] [place] [address] [place] [id number] Feb, Dysuria R30.0 and Ventral hernia without obstruction or gangrene K43.9 [facility] [address] [id number] [address] [place] [phone] Jan, Other chronic pain G89.29 [facility] [address] [id number] [id number] Dec, Other chronic pain G89.29 [facility] [address] [id number] [address] [place] [id number] Nov, Other chronic pain G89.29 Via [facility] [place] [address] [place] [id number] Nov, Lymphadenitis I88.9 [facility] [address] [id number] [address] [place] [id number] Nov, Other chronic pain G89.29 [facility] [address] [id number] [address] [place] [id number] Nov, [facility] [address] [id number] [place] [id number] Nov, Other chronic pain G89.29 [facility] [place] [address] [place] [id number] Oct, Low back pain M54.5 ; Hypertension I10 a nd Type 2 diabetes mellitus without complication, without long-term current use of insulin E11.9 [facility] [address] [id number] [address] [place] [id number] Oct, [facility] [address] [id number] [address] [place] [address] Oct, [facility] [address] [id number] [address] [place] [phone] Oct, [facility] [address] [id number] [address] [place] [phone] Oct, [facility] [address] [id number] [address] [place] [phone] Sep, [facility] [address] [id number] [address] [place] [id number] Sep, [facility] [address] [id number] [address] [place] [id number] Aug, Other chronic pain G89.29 [facility] [address] [id number] [address] [place] [id number] Jul, [facility] [address] [id number] [address] [place] [id number] Jul, [facility] [address] [id number] [address] [place] [id number] Jul, [facility] [address] [id number] [address] [place] [phone] Jun, [facility] [address] [id number] [address] [place] [phone] Jun, Via [facility] [place] [address] [place] [id number] Jun, Low back pain M54.5 ; Other chronic pain G89.29 and Coronary artery disease I25.10 [facility] [address] [id number] [address] [place] [phone] Jun, [facility] [address] [id number] [address] [place] [phone] May, [facility] [address] [id number] [address] [place] [address] May, [facility] [address] [id number] [address] [place] [phone] May, Other chronic pain G89.29 [facility] [address] [id number] [address] [place] [id number] May, [facility] [address] [id number] [address] [place] [phone] Apr, [facility] [address] [id number] [address] [place] [id number] 17 Apr, 2016 Acute cystitis without hemat uria N30.00 [facility] [address] [id number] [address] [place] [id number] 16 Apr, 2016 Acute cystitis without hemat uria N30.00 ; Coronary artery disease I25.10 ; Low back pain M54.5 and Other chronic pain G89.29 [facility] [address] [id number] [address] [place] [phone] 13 Apr, 2016 Other chronic pain G89.29 [facility] [address] [id number] [address] [place] [id number] March, Other chronic pain G89.29 [facility] [address] [id number] [address] [place] [id number] 18 Feb, 2016 [facility] [address] [id number] [address] [place] [id number] 15 Feb, 2016 Arthritis M19.90 [facility] [address] [id number] [address] [place] [id number] Feb, [facility] [address] [id number] [address] [place] [phone] 30 Jan, 2016 [facility] [address] [id number] [address] [place] [id number] Jan, [facility] [address] [facility] [id number] [address] [place] [id number] Jan, Other chronic pain G89.29 [facility] [address] [id number] [address] [place] [id number] Jan, Hypertension I10 ; Coronary artery disease I25.10 and Insomnia G47.00 [facility] [address] [id number] [address] [place] [phone] Jan, [facility] [address] [facility] [id number] [address] [place] [id number] Dec, Right hip pain M25.551 [facility] [address] [id number] [address] [place] [id number] Dec, [facility] [address] [id number] [address] [place] [id number] Dec, [facility] [address] [id number] [address] [place] [phone] Dec, [facility] [address] [facility] [id number] [address] [place] [phone] Dec, Other chronic pain G89.29 [facility] [address] [id number] [address] [place] [id number] Dec, [facility] [address] [id number] [address] [place] [id number] Nov, [facility] [address] [facility] [id number] [address] [place] [phone] Nov, Other chronic pain G89.29 [facility] [address] [id number] [address] [place] [id number] Nov, Right hip pain M25.551 and C oronary artery disease I25.10 [facility] [address] [id number] [address] [place] [id number] Nov, Other chronic pain G89.29 [facility] [address] [facility] [id number] [address] [place] [phone] Oct, [facility] [address] [facility] [id number] [address] [place] [phone] Oct, [facility] [address] [facility] [id number] [address] [place] [phone] Sep, [facility] [address] [facility] [id number] [address] [place] [phone] Sep, [facility] [address] [facility] [id number] [address] [place] [id number] Aug, [facility] [address] [facility] [id number] [address] [place] [phone] Aug, Hypertension I10 ; Coronary artery disease I25.10 and Arthritis M19.90 [facility] [address] [id number] [address] [place] [id number] Jun, [facility] [address] [facility] [id number] [address] [place] [phone] Jun, Essential hypertension, jayson gn 401.1 ; Other chronic pain 338.29 and Chronic airway obstruction, not elsewhere classified 496 [facility] [address] [id number] [address] [place] [address], [place] [id number] Jun, [facility] [address] [id number] [address] [place] [address], [place] [id number] Jun, [facility] [address] [id number] [address] [place] [address], [place] [id number] Jun, [facility] [address] [id number] [address] [place] [address], [place] [id number] May, [facility] [address] [id number] [address] [place] [address], [place] [id number] May, [facility] [address] [id number] [address] [place] [address], [place] [id number] Apr, [facility] [address] [id number] [address] [place] [address], [place] [phone] Apr, [facility] [address] [id number] [address] [place] [address], [place] [phone] Apr, [facility] [address] [id number] [address] [place] [address], [place] [address] March, [facility] [address] [id number] [address] [place] [address], [place] [address] March, [facility] [address] [id number] [address] [place] [address], [place] [address] March, [facility] [address] [id number] [address] [place] [address], [place] [address] March, [facility] [address] [id number] [address] [place] [address], [place] [address] March, Sialadenitis 527.2 [facility] [address] [id number] [address] [place] [address], [place] [address] Feb, [facility] [address] [id number] [address] [place] [address], [place] [address] Feb, [facility] [address] [id number] [address] [place] [address], [place] [address] Feb, [facility] [address] [id number] [address] [place] [address], [place] [address] 14 Feb, 2015 [facility] [address] [id number] [address] [place] [address], [place] [address] Feb, [facility] [address] [id number] [address] [place] [address], [place] [address] Jan, [facility] [address] [id number] [address] [place] [address], [place] [address] Jan, [facility] [address] [id number] [address] [place] [address], [place] [address] Jan, [facility] [address] [id number] [address] [place] [address], [place] [address] Jan, [facility] [address] [id number] [address] [place] [address], [place] [address] Jan, [facility] [address] [id number] [address] [place] [address], [place] [address] Jan, [facility] [address] [id number] [address] [place] [address], [place] [address] Dec, [facility] [address] [id number] [address] [place] [address], [place] [address] Dec, [facility] [address] [id number] [address] [place] [address], [place] [address] Dec, 2014 [facility] [address] [id number] [address] [place] [address] Dec, 2014 [facility] [address] [id number] [address] [place] [address], [place] [address] Dec, [facility] [address] [id number] [address] [place] [address], [place] [address] Dec, [facility] [address] [id number] [address] [place] [address], [place] [address] Nov, [facility] [address] [id number] [address] [place] [address], [place] [address] Nov, [facility] [address] [id number] [address] [place] [address], [place] [address] Nov, [facility] [address] [id number] [address] [place] [address], [place] [address] Nov, [facility] [address] [id number] [address] [place] [address], [place] [address] Nov, [facility] [address] [id number] [address] [place] [address], [place] [address] Nov, [facility] [address] [id number] [address] [place] [address], [place] [address] Nov, [facility] [address] [id number] [address] [place] [address], [place] [address] Nov, [facility] [address] [id number] [address] [place] [address], [place] [address] Nov, [facility] [address] [id number] [address] [place] [address], [place] [address] Nov, [facility] [address] [id number] [address] [place] [address], [place] [address] Nov, [facility] [address] [id number] [address] [place] [address], [place] [address] Nov, [facility] [address] [id number] [address] [place] [address], [place] [address] Nov, [facility] [address] [id number] [address] [place] [address], [place] [address] Nov, [facility] [address] [id number] [address] [place] [address], [place] [address] Oct, [facility] [address] [id number] [address] [place] [address], [place] [address] Oct, [facility] [address] [id number] [address] [place] [address], [place] [address] Oct, [facility] [address] [id number] [address] [place] [address], [place] [address] 18 Oct, 2014 [facility] [address] [id number] [address] [place] [address], [place] [address] 18 Oct, 2014 [facility] [address] [id number] [address] [place] [address], [place] [address] Oct, [facility] [address] [id number] [address] [place] [address], [place] [address] Oct, [facility] [address] [id number] [address] [place] [address], [place] [address] Oct, [facility] [address] [id number] [address] [place] [address], [place] [address] Oct, [facility] [address] [id number] [address] [place] [address], [place] [address] Sep, [facility] [address] [id number] [address] [place] [address], [place] [address] Sep, [facility] [address] [id number] [address] [place] [address], [place] [address] Sep, [facility] [address] [id number] [address] [place] [address], [place] [address] Sep, [facility] [address] [id number] [address] [place] [address], [place] [address] Sep, [facility] [address] [id number] [address] [place] [address], [place] [address] Sep, [facility] [address] [id number] [address] [place] [address], [place] [address] Sep, [facility] [address] [id number] [address] [place] [address], [place] [address] Sep, [facility] [address] [id number] [address] [place] [address], [place] [address] Sep, [facility] [address] [id number] [address] [place] [address] Sep, [facility] [address] [id number] [address] [place] [address], [place] [address] Sep, [facility] [address] [id number] [address] [place] [address], [place] [address] Sep, [facility] [address] [id number] [address] [place] [address], [place] [address] Aug, [facility] [address] [id number] [address] [place] [address], [place] [address] Aug, [facility] [address] [id number] [address] [place] [address], [place] [address] Aug, [facility] [address] [id number] [address] [place] [address], [place] [address] Aug, [facility] [address] [id number] [address] [place] [address], [place] [address] Aug, [facility] [address] [id number] [address] [place] [address], [place] [address] Aug, [facility] [address] [id number] [address] [place] [address], [place] [address] Aug, [facility] [address] [id number] [address] [place] [address], [place] [address] 17 Aug, 2014 [facility] [address] [id number] [address] [place] [address] 30 Jul, 2013 [facility] [address] [id number] [address] [place] [address], [place] [address] 30 Sep, 2013 [facility] [address] [id number] [address] [place] [address], [place] [address] 30 Sep, 2013 [facility] [address] [id number] [address] [place] [address], [place] [address] 30 Sep, 2013 [facility] [address] [id number] [address] [place] [address], [place] [address] 25 Jul, 2013 [facility] [address] [id number] [facility] [place] [address] Jul, [facility] [address] [id number] [facility] [place] [address] Jul, [facility] [address] [id number] [facility] [place] [address] Jul, [facility] [address] [id number] [address] [place] [address], [place] [address] Jul, [facility] [address] [id number] [facility] [place] [address] Jul, [facility] [address] [id number] [address] [place] [address], [place] [address] Jun, [facility] [address] [id number] [address] [place] [address], [place] [address] Jun, [facility] [address] [id number] [address] [place] [address], [place] [address] Jun, [facility] [address] [id number] [address] [place] [address], [place] [address] Jun, [facility] [address] [id number] [address] [place] [address], [place] [address] Jun, [facility] [address] [id number] [address] [place] [address], [place] [address] Jun, [facility] [address] [id number] [address] [place] [address], [place] [address] Jun, [facility] [address] [id number] [address] [place] [address], [place] [address] Jun, [facility] [address] [id number] [address] [place] [address], [place] [address] Jun, [facility] [address] [id number] [address] [place] [address], [place] [address] Jun, [facility] [address] [id number] [address] [place] [address], [place] [address] Jun, [facility] [address] [id number] [facility] [place] [address] Jun, [facility] [address] [id number] [facility] [place] [address] Jun, [facility] [address] [id number] [facility] [place] [address] Jun, [facility] [address] [id number] [address] [place] [address], [place] [address] Jun, [facility] [address] [id number] [address] [place] [address], [place] [address] Jun, [facility] [address] [id number] [address] [place] [address], [place] [address] Jun, [facility] [address] [id number] [address] [place] [address], [place] [address] Jun, [facility] [address] [id number] [address] [place] [address], [place] [address] Jun, [facility] [address] [id number] [address] [place] [address], [place] [address] Jun, [facility] [address] [id number] [address] [place] [address], [place] [address] Jun, [facility] [address] [id number] [address] [place] [address], [place] [address] Jun, [facility] [address] [id number] [address] [place] [address], [place] [address] May, [facility] [address] [id number] [address] [place] [address], [place] [address] May, [facility] [address] [id number] [address] [place] [address], [place] [address] May, [facility] [address] [id number] [address] [place] [address], [place] [address] May, [facility] [address] [id number] [address] [place] [address], [place] [address] May, 2013 [facility] [address] [id number] [facility] [place] [address] May, 2013 [facility] [address] [id number] [facility] [place] [address] May, 2013 [facility] [address] [id number] [facility] [place] [address] May, 2013 [facility] [address] [id number] [facility] [place] [address] May, 2013 [facility] [address] [id number] [address] [place] [address], [place] [address] May, [facility] [address] [id number] [address] [place] [address], [place] [address] May, [facility] [address] [id number] [address] [place] [address], [place] [address] May, [facility] [address] [id number] [address] [place] [address], [place] [address] May, [facility] [address] [id number] [address] [place] [address], [place] [address] Apr, [facility] [address] [id number] [address] [place] [address], [place] [address] Apr, [facility] [address] [id number] [address] [place] [address], [place] [address] Apr, [facility] [address] [id number] [address] [place] [address], [place] [address] Apr, [facility] [address] [id number] [address] [place] [address], [place] [address] Apr, [facility] [address] [id number] [address] [place] [address], [place] [address] Apr, [facility] [address] [id number] [address] [place] [address], [place] [address] Apr, [facility] [address] [id number] [facility] [place] [address] Apr, [facility] [address] [id number] [address] [place] [address], [place] [address] Apr, [facility] [address] [id number] [address] [place] [address], [place] [address] March, [facility] [address] [id number] [address] [place] [address], [place] [address] March, [facility] [address] [id number] [address] [place] [address], [place] [address] March, [facility] [address] [id number] [address] [place] [address], [place] [address] March, [facility] [address] [id number] [address] [place] [address], [place] [address] March, [facility] [address] [id number] [address] [place] [address], [place] [address] March, [facility] [address] [id number] [address] [place] [address], [place] [address] March, [facility] [address] [id number] [address] [place] [address], [place] [address] March, [facility] [address] [id number] [address] [place] [address], [place] [address] March, [facility] [address] [id number] [address] [place] [address], [place] [address] March, [facility] [address] [id number] [address] [place] [address], [place] [address] March, [facility] [address] [id number] [address] [place] [address], [place] [address] March, [facility] [address] [id number] [address] [place] [address], [place] [address] March, [facility] [address] [id number] [address] [place] [address], [place] [address] March, [facility] [address] [id number] [address] [place] [address], [place] [address] March, [facility] [address] [id number] [address] [place] [address], [place] [address] March, [facility] [address] [id number] [address] [place] [address], [place] [address] March, [facility] [address] [id number] [address] [place] [address], [place] [address] March, [facility] [address] [id number] [address] [place] [address], [place] [address] March, [facility] [address] [id number] [address] [place] [address], [place] [address] March, [facility] [address] [id number] [address] [place] [address], [place] [address] Feb, [facility] [address] [id number] [address] [place] [address], [place] [address] Feb, [facility] [address] [id number] [address] [place] [address], [place] [address] Feb, [facility] [address] [id number] [address] [place] [address], [place] [address] Feb, [facility] [address] [id number] [address] [place] [address], [place] [address] Feb, [facility] [address] [id number] [address] [place] [address], [place] [address] Feb, [facility] [address] [id number] [address] [place] [address], [place] [address] Feb, [facility] [address] [id number] [address] [place] [address], [place] [address] Feb, [facility] [address] [id number] [address] [place] [address], [place] [address] Jan, [facility] [address] [id number] [facility] [place] [address] 26 Jan, 2014 [facility] [address] [id number] [facility] [place] [address] 24 Jan, 2014 [facility] [address] [id number] [facility] [place] [address] 24 Jan, 2014 [facility] [address] [id number] [address] [place] [address], [place] [address] Jan, [facility] [address] [id number] [address] [place] [address], [place] [address] Jan, [facility] [address] [id number] [address] [place] [address], [place] [address] Jan, [facility] [address] [id number] [address] [place] [address], [place] [address] Jan, [facility] [address] [id number] [address] [place] [address], [place] [address] Jan, [facility] [address] [id number] [address] [place] [address], [place] [address] Jan, [facility] [address] [id number] [address] [place] [address], [place] [address] 27 Dec, 2013 [facility] [address] [id number] [address] [place] [address], [place] [address] Dec, [facility] [address] [id number] [address] [place] [address], [place] [address] 26 Dec, 2013 [facility] [address] [id number] [address] [place] [address] [address] 2013 [facility] [address] [id number] [address] [place] [address], [place] [address] 2013 [facility] [address] [id number] [address] [place] [address], [place] [address] 13 Dec, 2013 [facility] [address] [id number] [address] [place] [address], [place] [address] Dec, [facility] [address] [id number] [address] [place] [address], [place] [address] Dec, [facility] [address] [id number] [address] [place] [address], [place] [address] Nov, [facility] [address] [id number] [address] [place] [address], [place] [address] Nov, [facility] [address] [id number] [address] [place] [address], [place] [address] Nov, [facility] [address] [id number] [address] [place] [address], [place] [address] Nov, [facility] [address] [id number] [address] [place] [address], [place] [address] Nov, [facility] [address] [id number] [address] [place] [address], [place] [address] Nov, [facility] [address] [id number] [address] [place] [address], [place] [address] Nov, [facility] [address] [id number] [address] [place] [address], [place] [address] Nov, [facility] [address] [id number] [address] [place] [address], [place] [address] Nov, [facility] [address] [id number] [address] [place] [address], [place] [address] Nov, [facility] [address] [id number] [address] [place] [address], [place] [address] Nov, [facility] [address] [id number] [address] [place] [address], [place] [address] Nov, [facility] [address] [id number] [address] [place] [address], [place] [address] Nov, [facility] [address] [id number] [address] [place] [address], [place] [address] Oct, [facility] [address] [id number] [address] [place] [address], [place] [address] 30 Oct, 2013 [facility] [address] [id number] [address] [place] [address], [place] [address] 26 Oct, 2013 [facility] [address] [id number] [address] [place] [address], [place] [address] Oct, [facility] [address] [id number] [address] [place] [address], [place] [address] Oct, [facility] [address] [id number] [address] [place] [address], [place] [address] 23 Oct, 2013 [facility] [address] [id number] [address] [place] [address], [place] [address] 18 Oct, 2013 [facility] [address] [id number] [address] [place] [address], [place] [address] 18 Oct, 2013 [facility] [address] [id number] [address] [place] [address], [place] [address] 17 Oct, 2013 [facility] [address] [id number] [address] [place] [address], [place] [address] 17 Oct, 2013 [facility] [address] [id number] [address] [place] [address], [place] [address] 03 Oct, 2013 [facility] [address] [id number] [address] [place] [address], [place] [address] 03 Oct, 2013 [facility] [address] [id number] [address] [place] [address], [place] [address] 02 Oct, 2013 [facility] [address] [id number] [address] [place] [address], [place] [address] 02 Oct, 2013 [facility] [address] [id number] [address] [place] [address], [place] [address] 14 Sep, 2013 [facility] [address] [id number] [address] [place] [address], [place] [address] 14 Sep, 2013 [facility] [address] [id number] [address] [place] [address], [place] [address] Sep, [facility] [address] [id number] [address] [place] [address], [place] [address] Sep, [facility] [address] [id number] [address] [place] [address], [place] [address] Sep, [facility] [address] [id number] [address] [place] [address], [place] [address] Sep, [facility] [address] [id number] [address] [place] [address], [place] [address] Sep, [facility] [address] [id number] [address] [place] [address], [place] [address] Sep, [facility] [address] [id number] [address] [place] [address], [place] [address] Sep, [facility] [address] [id number] [address] [place] [address], [place] [address] Sep, [facility] [address] [id number] [address] [place] [id number] Aug, [facility] [address] [id number] [address] [place] [id number] Aug, [facility] [address] [id number] [address] [place] [id number] Aug, [facility] [address] [id number] [address] [place] [id number] Aug, [facility] [address] [id number] [address] [place] [id number] Aug, [facility] [address] [id number] [address] [place] [address] Aug, [facility] [address] [id number] [address] [place] [id number] Aug, [facility] [address] [id number] [address] [place] [id number] Aug, [facility] [address] [id number] [address] [place] [id number] 22 Aug, 2013 [facility] [address] [id number] [address] [place] [address], [place] [address] 22 Aug, 2013 [facility] [address] [id number] [address] [place] [id number] 18 Aug, 2013 [facility] [address] [id number] [address] [place] [address], [place] [address] 18 Aug, 2013 [facility] [address] [id number] [address] [place] [id number] 18 Aug, 2013 [facility] [address] [id number] [address] [place] [address], [place] [address] 18 Aug, 2013 [facility] [address] [id number] [address] [place] [address], [place] [address] 17 Aug, 2013 [facility] [address] [id number] [address] [place] [address], [place] [address] 14 Aug, 2013 [facility] [address] [id number] [address] [place] [address], [place] [address] 14 Aug, 2013 [facility] [address] [id number] [address] [place] [address], [place] [address] Aug, [facility] [address] [id number] [address] [place] [address], [place] [address] 20 Jul, 2013 [facility] [address] [id number] [address] [place] [address], [place] [address] 19 Jul, 2012 [facility] [address] [id number] [address] [place] [address], [place] [address] 18 Jul, 2012 [facility] [address] [id number] [address] [place] [address], [place] [address] 11 Jul, 2013 [facility] [address] [id number] [address] [place] [address], [place] [address] 11 Jul, 2013 [facility] [address] [id number] [address] [place] [address], [place] [address] 28 Jun, 2013 [facility] [address] [id number] [facility] [place] [address] Jun, [facility] [address] [id number] [facility] [place] [address] Jun, [facility] [address] [id number] [address] [place] [address], [place] [address] Jun, [facility] [address] [id number] [address] [place] [address], [place] [address] Jun, [facility] [address] [id number] [address] [place] [address], [place] [address] Jun, [facility] [address] [id number] [address] [place] [address], [place] [address] Jun, [facility] [address] [id number] [address] [place] [address], [place] [address] Jun, [facility] [address] [id number] [address] [place] [address], [place] [address] Jun, [facility] [address] [id number] [address] [place] [address], [place] [address] Jun, [facility] [address] [id number] [address] [place] [address], [place] [address] May, [facility] [address] [id number] [address] [place] [address], [place] [address] May, [facility] [address] [id number] [address] [place] [address], [place] [address] May, [facility] [address] [id number] [address] [place] [address], [place] [address] May, [facility] [address] [id number] [address] [place] [address], [place] [address] May, [facility] [address] [id number] [address] [place] [address], [place] [address] May, [facility] [address] [id number] [address] [place] [address], [place] [address] May, [facility] [address] [id number] [address] [place] [address], [place] [address] May, [facility] [address] [id number] [address] [place] [address], [place] [address] May, [facility] [address] [id number] [address] [place] [address], [place] [address] Apr, [facility] [address] [id number] [address] [place] [address], [place] [address] Apr, [facility] [address] [id number] [address] [place] [address], [place] [address] Apr, [facility] [address] [id number] [address] [place] [address], [place] [address] Apr, [facility] [address] [id number] [address] [place] [address], [place] [address] Apr, [facility] [address] [id number] [address] [place] [address], [place] [address] Apr, [facility] [address] [id number] [address] [place] [address], [place] [address] Apr, [facility] [address] [id number] [address] [place] [address], [place] [address] March, [facility] [address] [id number] [address] [place] [address], [place] [address] Feb, [facility] [address] [id number] [address] [place] [address], [place] [address] Feb, [facility] [address] [id number] [address] [place] [address], [place] [address] Feb, [facility] [address] [id number] [address] [place] [address], [place] [address] Jan, [facility] [address] [id number] [address] [place] [address], [place] [address] Jan, [facility] [address] [id number] [address] [place] [address], [place] [address] 19 Jan, 2013 [facility] [address] [id number] [address] [place] [address], [place] [address] 14 Jan, 2013 [facility] [address] [id number] [address] [place] [address], [place] [address] 12 Jan, 2013 [facility] [address] [id number] [address] [place] [address], [place] [address] 08 Jan, 2013 [facility] [address] [id number] [address] [place] [address], [place] [address] 07 Jan, 2013 [facility] [address] [id number] [address] [place] [address], [place] [address] 04 Jan, 2013 [facility] [address] [id number] [address] [place] [address], [place] [address] 28 Dec, 2012 [facility] [address] [id number] [address] [place] [address], [place] [address] 25 Dec, 2012 [facility] [address] [id number] [address] [place] [address], [place] [address] 13 Dec, 2012 [facility] [address] [id number] [address] [place] [address], [place] [address] 11 Dec, 2012 [facility] [address] [id number] [address] [place] [address], [place] [address] 07 Dec, 2012 [facility] [address] [id number] [address] [place] [address], [place] [address] 06 Dec, 2012 [facility] [address] [id number] [address] [place] [address], [place] [address] 05 Dec, 2012 [facility] [address] [id number] [address] [place] [address], [place] [address] 31 Nov, 2012 [facility] [address] [id number] [address] [place] [address], [place] [address] 24 Nov, 2012 [facility] [address] [id number] [address] [place] [address], [place] [address] 18 Nov, 2012 [facility] [address] [id number] [address] [place] [address], [place] [address] 15 Nov, 2012 [facility] [address] [id number] [address] [place] [address], [place] [address] Nov, [facility] [address] [id number] [address] [place] [address], [place] [address] Nov, [facility] [address] [id number] [address] [place] [address], [place] [address] Nov, [facility] [address] [id number] [address] [place] [address], [place] [address] Oct, [facility] [address] [id number] [address] [place] [address], [place] [address] Oct, [facility] [address] [id number] [address] [place] [address], [place] [address] Oct, [facility] [address] [id number] [address] [place] [address], [place] [address] Oct, [facility] [address] [id number] [address] [place] [address], [place] [address] Oct, [facility] [address] [id number] [address] [place] [address], [place] [address] Oct, [facility] [address] [id number] [address] [place] [address], [place] [address] Oct, [facility] [address] [id number] [address] [place] [address], [place] [address] Oct, [facility] [address] [id number] [address] [place] [address], [place] [address] Oct, [facility] [address] [id number] [address] [place] [address], [place] [address] 05 Oct, 2012 [facility] [address] [id number] [address] [place] [address], [place] [address] Oct, [facility] [address] [id number] [address] [place] [address], [place] [address] Oct, [facility] [address] [id number] [address] [place] [address], [place] [address] Sep, [facility] [address] [id number] [address] [place] [address] Sep, [facility] [address] [id number] [address] [place] [address], [place] [address] Sep, [facility] [address] [id number] [address] [place] [address], [place] [address] Sep, [facility] [address] [id number] [address] [place] [address], [place] [address] Sep, [facility] [address] [id number] [address] [place] [address], [place] [address] Sep, [facility] [address] [id number] [address] [place] [address], [place] [address] Sep, [facility] [address] [id number] [address] [place] [address] Sep, [facility] [address] [id number] [address] [place] [address], [place] [address] Sep, [facility] [address] [id number] [address] [place] [address] Sep, [facility] [address] [id number] [address] [place] [address], [place] [address] Sep, [facility] [address] [id number] [address] [place] [address] Aug, [facility] [address] [id number] [address] [place] [address] Aug, [facility] [address] [id number] [address] [place] [address] Aug, [facility] [address] [id number] [address] [place] [address] Aug, [facility] [address] [id number] [address] [place] [address], [place] [address] Aug, [facility] [address] [id number] [address] [place] [address], [place] [address] Aug, [facility] [address] [id number] [address] [place] [address], [place] [address] Aug, [facility] [address] [id number] [address] [place] [address], [place] [address] Aug, [facility] [address] [id number] [address] [place] [address], [place] [address] Aug, [facility] [address] [id number] [address] [place] [address], [place] [address] Aug, [facility] [address] [id number] [address] [place] [address], [place] [address] 22 Jul, 2012 [facility] [address] [id number] [address] [place] [address], [place] [address] 20 Jul, 2012 [facility] [address] [id number] [address] [place] [address], [place] [address] 10 Jul, 2012 [facility] [address] [id number] [address] [place] [address], [place] [address] 06 Jul, 2012 [facility] [address] [id number] [address] [place] [address], [place] [address] 30 Jun, 2012 [facility] [address] [id number] [address] [place] [address], [place] [address] Jun, [facility] [address] [id number] [address] [place] [address], [place] [address] 16 Jun, 2012 [facility] [address] [id number] [address] [place] [address], [place] [address] Jun, [facility] [address] [id number] [address] [place] [address], [place] [address] Jun, [facility] [address] [id number] [address] [place] [address], [place] [address] Jun, [facility] [address] [id number] [address] [place] [address], [place] [address] Jun, [facility] [address] [id number] [address] [place] [address], [place] [address] May, [facility] [address] [id number] [address] [place] [address], [place] [address] May, [facility] [address] [id number] [address] [place] [address], [place] [address] May, [facility] [address] [id number] [address] [place] [address], [place] [address] May, [facility] [address] [id number] [address] [place] [address], [place] [address] May, [facility] [address] [id number] [address] [place] [address], [place] [address] Apr, [facility] [address] [id number] [address] [place] [address], [place] [address] Apr, [facility] [address] [id number] [address] [place] [address], [place] [address] Apr, [facility] [address] [id number] [address] [place] [address], [place] [address] Apr, [facility] [address] [id number] [address] [place] [address], [place] [address] Apr, [facility] [address] [id number] [address] [place] [address], [place] [address] March, [facility] [address] [id number] [address] [place] [address], [place] [address] March, [facility] [address] [id number] [address] [place] [address], [place] [address] March, [facility] [address] [id number] [address] [place] [address], [place] [address] March, [facility] [address] [id number] [address] [place] [address], [place] [address] March, [facility] [address] [id number] [address] [place] [address], [place] [address] March, [facility] [address] [id number] [address] [place] [address], [place] [address] March, [facility] [address] [id number] [address] [place] [address], [place] [address] March, [facility] [address] [id number] [address] [place] [address], [place] [address] March, [facility] [address] [id number] [address] [place] [address], [place] [address] March, [facility] [address] [id number] [address] [place] [address], [place] [address] Feb, [facility] [address] [id number] [address] [place] [address], [place] [address] Feb, [facility] [address] [id number] [address] [place] [address], [place] [address] Feb, [facility] [address] [id number] [address] [place] [address], [place] [address] Feb, [facility] [address] [id number] [address] [place] [address], [place] [address] Feb, [facility] [address] [id number] [address] [place] [address], [place] [address] Feb, [facility] [address] [id number] [address] [place] [address], [place] [address] Feb, [facility] [address] [id number] [address] [place] [address], [place] [address] Feb, [facility] [address] [id number] [address] [place] [address], [place] [address] Feb, [facility] [address] [id number] [address] [place] [address], [place] [address] Jan, [facility] [address] [id number] [address] [place] [address], [place] [address] 07 Jan, 2012 [facility] [address] [id number] [address] [place] [address], [place] [address] 05 Jan, 2012 [facility] [address] [id number] [address] [place] [address], [place] [address] Jan, [facility] [address] [id number] [address] [place] [address], [place] [address] 29 Dec, 2011 [facility] [address] [id number] [address] [place] [address], [place] [address] Dec, [facility] [address] [id number] [address] [place] [address], [place] [address] Nov, [facility] [address] [id number] [address] [place] [address], [place] [address] Nov, [facility] [address] [id number] [address] [place] [address], [place] [address] Nov, [facility] [address] [id number] [address] [place] [address], [place] [address] Nov, [facility] [address] [id number] [address] [place] [address], [place] [address] Nov, [facility] [address] [id number] [address] [place] [address], [place] [address] Oct, [facility] [address] [id number] [address] [place] [address], [place] [address] Oct, [facility] [address] [id number] [address] [place] [address], [place] [address] Oct, [facility] [address] [id number] [address] [place] [address], [place] [address] Oct, [facility] [address] [id number] [address] [place] [address], [place] [address] Oct, [facility] [address] [id number] [address] [place] [address] Oct, [facility] [address] [facility] [id number] [address] [place] [address] Oct, [facility] [address] [facility] [id number] [address] [place] [address] Oct, [facility] [address] [facility] [id number] [address] [place] [address] Sep, IMMUNIZATIONS No Known Immunizations SOCIAL HISTORY [...] fever, discharged 11/27/2017 11/26/2017 Hospitalization History [facility] [place]- Went Unrepsonsive, Hit head 2017 Hospitalization History [facility] [place]- Back Pain 05/05/ 8
--- OUTSIDE RECORDS SUMMARY | 2020-06-18 15:21 | XMS REPORT ---
Author Author Sanjuanita VEGA Organization [facility] Address [address] [place] [address] Care Team Providers Care Workforce Advisor Name Role Phone SHANIQUE VEGA Unavailable PROBLEMS Type Condition ICD9-CM Code DVQ43-SE Code Onset Dates Condition S tatus SNOMED Code Problem Coronary artery disease I25.10 Active 43594112 Problem Hypertension I10 Active 3669508 3 Problem Other chronic pain G89.29 Active 8 2892423 Problem Hyperlipidemia E78.5 Active 02455 004 Problem Type 2 diabetes mellitus wit hout complication, without long-term current use of insulin E11.9 Active 952368460 Problem Low back pain M54.5 Active 180781 009 Problem Pharyngeal dysphagia R13.13 Active 02122197873689 Problem Anxiety F41.9 Active 41378290 Problem Peripheral vascular disease I73.9 Ac tive 613492768 Problem Suprapubic catheter Z93.59 Active 893113300 Problem Reactive depression F32.9 Active 57526311 Problem Neurogenic bladder N31.9 Active 3 08241704 Problem Ventral hernia without obstruction or gangrene K43 .9 Active 935475659 Problem Insomnia G47.00 Active 778681033 Problem Paroxysmal atrial fibrillation I48.0 Active 750589157 Problem Postmenopausal atrophic vaginitis N95.2 Active 93892915 Problem Encounter for suprapubic catheter care Z43.5 Active 352446253 ALLERGIES No Information ENCOUNTERS Encounter Location Date Diagnosis Via [facility] [address] [place] [id number] Jun, [facility] [address] [facility] [id number] [address] [place] [address] May, [facility] [address] [facility] [id number] [address] [place] [address] Apr, Via [facility] [address] [place] [id number] Apr, Strain of right shoulder, subsequent enc ounter S46.911D [facility] [address] [id number] [address] [place] [address] 14 Apr, 2019 Strain of right shoulder, scherer bsequent encounter S46.911D and Anxiety F41.9 [facility] [address] [place] [id number] 13 Apr, 2019 Type 2 diabetes mellitus without complic ation, without long-term current use of insulin E11.9 and Neurogenic bladder N31.9 Via [facility] [address] [place] [id number] 11 Apr, 2019 Strain of right shoulder, subsequent enc ounter S46.911D ; History of GI bleed Z87.19 ; Neurogenic bladder N31.9 and Reactive depression F32.9 [place] [address] [id number] [address] [place] [phone] 10 Apr, 2019 Acute pain of left shoulder M25.512 [place] [address] [id number] [address] [place] [phone] 07 Apr, 2019 [place] [address] [id number] [address] [place] [id number] 06 Apr, 2019 Anxiety F41.9 and 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 [facility] [address] [place] [id number] March, Gastrointestinal hemorrhage associated w ith acute gastritis K29.01 [place] [address] [id number] [address] [place] [address] March, Via [facility] [address] [place] [id number] March, Bronchitis J40 [facility] [address] [id number] [address] [place] [phone] March, Cough R05 [place] [address] [id number] [address] [place] [address] March, Other chronic pain G89.29 [place] [address] [id number] [address] [place] [address] March, Anxiety F41.9 [facility] [address] [id number] [address] [place] [address] March, [facility] [address] [id number] [address] [place] [address] Feb, Other chronic pain G89.29 [facility] [address] [id number] [address] [place] [address] Feb, Anxiety F41.9 [facility] [address] [id number] [address] [place] [address] Feb, Other chronic pain G89.29 Via [facility] [address] [place] [id number] Feb, Neurogenic bladder N31.9 and Suprapubic catheter Z93.59 [facility] [address] [id number] [address] [place] [address] Jan, Anxiety F41.9 [facility] [address] [id number] [address] [place] [address] Dec, Anxiety F41.9 [facility] [address] [id number] [address] [place] [phone] Dec, Other chronic pain G89.29 an d Anxiety F41.9 [facility] [address] [id number] [address] [place] [address] Dec, Via [facility] [address] [place] [id number] Dec, Neurogenic bladder N31.9 and Suprapubic catheter Z93.59 [facility] [address] [id number] [address] [place] [id number] Nov, Other chronic pain G89.29 an d Anxiety F41.9 [facility] [address] [id number] [address] [place] [address] Nov, Via [facility] [address] [place] [id number] Nov, Suprapubic catheter Z93.59 [facility] [address] [id number] [address] [place] [address] Oct, Other chronic pain G89.29 an d Anxiety F41.9 [facility] [address] [id number] [address] [place] [address] Oct, [facility] [address] [id number] [address] [place] [address] Oct, Suprapubic catheter Z93.59 [facility] [address] [id number] [address] [place] [address] Oct, Via [facility] [address] [place] [id number] Oct, [facility] [address] [id number] [address] [place] [address] Oct, Anxiety F41.9 [facility] [address] [id number] [address] [place] [phone] Oct, Anxiety F41.9 [facility] [address] [place] [id number] Oct, Other chronic pain G89.29 [facility] [address] [id number] [address] [place] [address] Sep, Other chronic pain G89.29 [facility] [address] [place] [id number] Sep, Suprapubic catheter Z93.59 and Cervicalg ia M54.2 [facility] [address] [id number] [address] [place] [address] Sep, [facility] [address] [id number] [address] [place] [address] Sep, [facility] [address] [id number] [address] [place] [address] Sep, [facility] [address] [place] [id number] Aug, Cystitis N30.90 [facility] [address] [id number] [address] [place] [address] Aug, [facility] [address] [id number] [address] [place] [address] Aug, Other chronic pain G89.29 [facility] [address] [id number] [address] [place] [address] Aug, Via [facility] [address] [place] [id number] Aug, Encounter for suprapubic catheter care Z 43.5 [place] [address] [id number] [address] [place] [address] Jul, Via [facility] [address] [place] [id number] Jul, [facility] [address] [id number] [address] [place] [address] Jul, Other chronic pain G89.29 [facility] [address] [id number] [address] [place] [address] Jul, [facility] [address] [id number] [address] [place] [id number] Jul, Via [facility] [address] [place] [id number] Jun, Postmenopausal atrophic vaginitis N95.2 [facility] [address] [id number] [address] [place] [address] Jun, Other chronic pain G89.29 [facility] [address] [id number] [address] [place] [address] Jun, Via [facility] [address] [place] [id number] May, Anxiety F41.9 ; Type 2 diabetes mellitus without complication, without long-term current use of insulin E11.9 ; Hypertension I10 ; Low back pain M54.5 ; Paroxysmal atrial fibrillation I48.0 and 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 [facility] [address] [id number] [address] [place] [address] May, Other chronic pain G89.29 Via [facility] [address] [place] [id number] May, Low back pain M54.5 [facility] [address] [id number] [address] [place] [phone] May, [facility] [address] [id number] [address] [place] [address] Apr, Other chronic pain G89.29 [facility] [address] [id number] [address] [place] [address] Apr, [facility] [address] [id number] [address] [place] [address] Apr, Via [facility] [address] [place] [id number] Apr, Closed compression fracture of L3 lumbar vertebra with routine healing, subsequent encounter S32.030D [facility] [address] [place] [id number] Apr, Low back pain M54.5 Via [facility] [address] [place] [id number] Apr, Coccydynia M53.3 [facility] [address] [id number] [address] [place] [address] March, [facility] [address] [id number] [address] [place] [address] March, Other chronic pain G89.29 [facility] [address] [id number] [address] [place] [address] March, [facility] [address] [id number] [address] [place] [address] March, [facility] [address] [id number] [address] [place] [address] Feb, [facility] [address] [id number] [address] [place] [address] Feb, Other chronic pain G89.29 Via [facility] [address] [place] [id number] Feb, Other chronic pain G89.29 and Anxiety F4 1.9 [facility] [address] [id number] [address] [place] [address] Feb, [facility] [address] [id number] [address] [place] [address] Jan, [facility] [address] [id number] [address] [place] [address] Jan, [facility] [address] [facility] [id number] [address] [place] [address] Jan, [facility] [address] [facility] [id number] [address] [place] [address] Jan, [facility] [address] [facility] [id number] [address] [place] [address] Dec, Via [facility] [address] [place] [id number] Dec, Peripheral vascular disease I73.9 ; 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 ; Other chronic pain G89.29 ; Anxiety F41.9 ; Reactive depression F32.9 ; Insomnia G47.00 and Type 2 diabetes mellitus without complication, without long-term current use of insulin E11.9 [facility] [address] [id number] [place] [address] Nov, [facility] [address] [id number] [place] [id number] Nov, Anxiety F41.9 [facility] [address] [facility] [id number] [address] [place] [address] Nov, [facility] [address] [id number] [place] [id number] Nov, Anxiety F41.9 Via [facility] [address] [place] [id number] Nov, Status post surgery Z98.890 ; Confused R 41.0 ; Anxiety F41.9 and Other chronic pain G89.29 [facility] [address] [id number] [place] [id number] Nov, Other chronic pain G89.29 [facility] [address] [id number] [address] [place] [address] Oct, [facility] [address] [id number] [place] [id number] Oct, Other chronic pain G89.29 [facility] [address] [id number] [address] [place] [address] Oct, Anxiety F41.9 [facility] [address] [id number] [place] [id number] Sep, Other chronic pain G89.29 [facility] [address] [id number] [place] [id number] Sep, Via [facility] [address] [place] [id number] Aug, Dysuria R30.0 and Anxiety F41.9 [facility] [address] [id number] [address] [place] [address] Aug, [facility] [address] [id number] [place] [id number] Aug, Other chronic pain G89.29 [facility] [address] [id number] [address] [place] [address] Jul, Other chronic pain G89.29 [facility] [address] [id number] [place] [id number] Jun, [facility] [address] [id number] [place] [id number] Jun, Other chronic pain G89.29 [facility] [address] [id number] [address] [place] [address] Jun, [facility] [address] [id number] [address] [place] [address] May, Other chronic pain G89.29 [facility] [address] [id number] [address] [place] [address] Apr, Other chronic pain G89.29 Via [facility] [address] [place] [id number] Apr, Reactive depression F32.9 and Pharyngeal dysphagia R13.13 [facility] [address] [id number] [address] [place] [address] Apr, Urinary tract infection with out hematuria, site unspecified N39.0 [facility] [address] [id number] [address] [place] [address] March, Other chronic pain G89.29 [facility] [address] [id number] [address] [place] [phone] Feb, Other chronic pain G89.29 [facility] [address] [id number] [address] [place] [address] Feb, [facility] [address] [id number] [id number] Feb, Via [facility] [address] [place] [id number] Feb, Dysuria R30.0 and Ventral hernia without obstruction or gangrene K43.9 [facility] [address] [id number] [address] [place] [address] Jan, Other chronic pain G89.29 [facility] [id number] [place] [id number] Dec, Other chronic pain G89.29 [facility] [address] [id number] [address] [place] [address] Nov, Other chronic pain G89.29 Via [facility] [address] [place] [id number] Nov, Lymphadenitis I88.9 [facility] [address] [id number] [address] [place] [address] Nov, Other chronic pain G89.29 [facility] [address] [id number] [address] [place] [address] Nov, [facility] [id number] [place] [id number] Nov, Other chronic pain G89.29 [facility] [address] [place] [id number] Oct, Low back pain M54.5 ; Hypertension I10 a nd Type 2 diabetes mellitus without complication, without long-term current use of insulin E11.9 [facility] [address] [id number] [address] [place] [address] Oct, [facility] [address] [id number] [address] [place] [address] Oct, [facility] [address] [id number] [address] [place] [address] Oct, [facility] [address] [id number] [address] [place] [address] Oct, [facility] [address] [id number] [address] [place] [address] Sep, [facility] [address] [id number] [address] [place] [address] Sep, [facility] [address] [id number] [address] [place] [address] Aug, Other chronic pain G89.29 [facility] [address] [id number] [address] [place] [address] Jul, [facility] [address] [id number] [address] [place] [address] Jul, [facility] [address] [id number] [address] [place] [address] Jul, [facility] [address] [id number] [address] [place] [phone] Jun, [facility] [address] [id number] [address] [place] [address] Jun, Via [facility] [address] [place] [id number] Jun, Low back pain M54.5 ; Other chronic pain G89.29 and Coronary artery disease I25.10 [facility] [address] [id number] [address] [place] [address] Jun, [facility] [address] [id number] [address] [place] [address] May, [facility] [address] [id number] [address] [place] [address] May, [facility] [address] [id number] [address] [place] [address] May, Other chronic pain G89.29 [facility] [address] [id number] [address] [place] [address] May, [facility] [address] [id number] [address] [place] [address] Apr, [facility] [address] [id number] [address] [place] [phone] 17 Apr, 2016 Acute cystitis without hemat uria N30.00 [facility] [address] [id number] [address] [place] [address] Apr, Acute cystitis without hemat uria N30.00 ; Coronary artery disease I25.10 ; Low back pain M54.5 and Other chronic pain G89.29 [facility] [address] [id number] [address] [place] [address] Apr, Other chronic pain G89.29 [facility] [address] [id number] [address] [place] [address] March, Other chronic pain G89.29 [facility] [address] [id number] [address] [place] [phone] 18 Feb, 2016 [facility] [address] [id number] [address] [place] [address] Feb, Arthritis M19.90 [facility] [address] [id number] [address] [place] [address] Feb, [facility] [address] [id number] [address] [place] [address] Jan, [facility] [address] [id number] [address] [place] [address] Jan, [facility] [address] [id number] [address] [place] [address] Jan, Other chronic pain G89.29 [facility] [address] [id number] [address] [place] [address] Jan, Hypertension I10 ; Coronary artery disease I25.10 and Insomnia G47.00 [facility] [address] [id number] [address] [place] [address] Jan, [facility] [address] [facility] [id number] [address] [place] [address] Dec, Right hip pain M25.551 [facility] [address] [id number] [address] [place] [address] Dec, [facility] [address] [id number] [address] [place] [address] Dec, [facility] [address] [id number] [address] [place] [phone] Dec, [facility] [address] [facility] [id number] [address] [place] [address] Dec, Other chronic pain G89.29 [facility] [address] [id number] [address] [place] [address] Dec, [facility] [address] [id number] [address] [place] [address] Nov, [facility] [address] [id number] [address] [place] [address] Nov, Other chronic pain G89.29 [facility] [address] [id number] [address] [place] [address] Nov, Right hip pain M25.551 and C oronary artery disease I25.10 [facility] [address] [id number] [address] [place] [address] Nov, Other chronic pain G89.29 [facility] [address] [facility] [id number] [address] [place] [address] Oct, [facility] [address] [facility] [id number] [address] [place] [phone] Oct, [facility] [address] [facility] [id number] [address] [place] [address] Sep, [facility] [address] [facility] [id number] [address] [place] [address] Sep, [facility] [address] [facility] [id number] [address] [place] [address] Aug, [facility] [address] [facility] [id number] [address] [place] [address] Aug, Hypertension I10 ; Coronary artery disease I25.10 and Arthritis M19.90 [facility] [address] [id number] [address] [place] [address] Jun, [facility] [address] [facility] [id number] [address] [place] [phone] Jun, Essential hypertension, jayson gn 401.1 ; Other chronic pain 338.29 and Chronic airway obstruction, not elsewhere classified 496 [facility] [address] [id number] [address] [place] [address], [place] [address] Jun, [facility] [address] [id number] [address] [place] [address], [place] [address] Jun, [facility] [address] [id number] [address] [place] [address], [place] [address] Jun, [facility] [address] [id number] [address] [place] [address], [place] [address] May, [facility] [address] [id number] [address] [place] [address], [place] [address] May, [facility] [address] [id number] [address] [place] [address], [place] [address] Apr, [facility] [address] [id number] [address] [place] [address], [place] [address] Apr, [facility] [address] [id number] [address] [place] [address], [place] [address] Apr, [facility] [address] [id number] [address] [place] [address], [place] [address] March, [facility] [address] [id number] [address] [place] [address], [place] [address] March, [facility] [address] [id number] [address] [place] [address], [place] [address] March, [facility] [address] [id number] [address] [place] [address], [place] [address] March, [facility] [address] [id number] [address] [place] [address], [place] [address] March, Sialadenitis 527.2 [facility] [address] [id number] [address] [place] [address], [place] [address] Feb, [facility] [address] [id number] [address] [place] [address], [place] [address] Feb, [facility] [address] [id number] [address] [place] [address], [place] [address] Feb, [facility] [address] [id number] [address] [place] [address], [place] [address] 14 Feb, 2015 [facility] [address] [id number] [address] [place] [address], [place] [address] 13 Feb, 2015 [facility] [address] [id number] [address] [place] [address], [place] [address] Jan, [facility] [address] [id number] [address] [place] [address], [place] [address] Jan, [facility] [address] [id number] [address] [place] [address], [place] [address] Jan, [facility] [address] [id number] [address] [place] [place] [address], [place] [address] Jan, [facility] [address] [id number] [address] [place] [address], [place] [address] Jan, [facility] [address] [id number] [address] [place] [address], [place] [address] Jan, [facility] [address] [id number] [address] [place] [address], [place] [address] Dec, [facility] [address] [id number] [address] [place] [address], [place] [address] Dec, [facility] [address] [id number] [address] [place] [address], [place] [address] Dec, 2014 [facility] [address] [id number] [address] [place] [address], [place] [address] Dec, 2014 [facility] [address] [id number] [address] [place] [address], [place] [address] Dec, [facility] [address] [id number] [address] [place] [address], [place] [address] Dec, [facility] [address] [id number] [address] [place] [address], [place] [address] Nov, [facility] [address] [id number] [address] [place] [address], [place] [address] Nov, [facility] [address] [id number] [address] [place] [address], [place] [address] Nov, [facility] [address] [id number] [address] [place] [address], [place] [address] Nov, [facility] [address] [id number] [address] [place] [address], [place] [address] Nov, [facility] [address] [id number] [address] [place] [address], [place] [address] Nov, [facility] [address] [id number] [address] [place] [address], [place] [address] Nov, [facility] [address] [id number] [address] [place] [address], [place] [address] Nov, [facility] [address] [id number] [address] [place] [address], [place] [address] Nov, [facility] [address] [id number] [address] [place] [address], [place] [address] Nov, [facility] [address] [id number] [address] [place] [address], [place] [address] Nov, [facility] [address] [id number] [address] [place] [address], [place] [address] Nov, [facility] [address] [id number] [address] [place] [address], [place] [address] Nov, [facility] [address] [id number] [address] [place] [address], [place] [address] Nov, [facility] [address] [id number] [address] [place] [address], [place] [address] Oct, [facility] [address] [id number] [address] [place] [address], [place] [address] Oct, [facility] [address] [id number] [address] [place] [address], [place] [address] Oct, [facility] [address] [id number] [address] [place] [address], [place] [address] Oct, [facility] [address] [id number] [address] [place] [address], [place] [address] Oct, [facility] [address] [id number] [address] [place] [address], [place] [address] Oct, [facility] [address] [id number] [address] [place] [address], [place] [address] Oct, [facility] [address] [id number] [address] [place] [address], [place] [address] Oct, [facility] [address] [id number] [address] [place] [address], [place] [address] Oct, [facility] [address] [id number] [address] [place] [address], [place] [address] Sep, [facility] [address] [id number] [address] [place] [address], [place] [address] Sep, [facility] [address] [id number] [address] [place] [address], [place] [address] Sep, [facility] [address] [id number] [address] [place] [address], [place] [address] Sep, [facility] [address] [id number] [address] [place] [address], [place] [address] Sep, [facility] [address] [id number] [address] [place] [address], [place] [address] Sep, [facility] [address] [id number] [address] [place] [address], [place] [address] Sep, [facility] [address] [id number] [address] [place] [address], [place] [address] Sep, [facility] [address] [id number] [address] [place] [address], [place] [address] Sep, [facility] [address] [id number] [address] [place] [address] Sep, [facility] [address] [id number] [address] [place] [address], [place] [address] Sep, [facility] [address] [id number] [address] [place] [address], [place] [address] Sep, [facility] [address] [id number] [address] [place] [address], [place] [address] Aug, [facility] [address] [id number] [address] [place] [address], [place] [address] Aug, [facility] [address] [id number] [address] [place] [address], [place] [address] Aug, [facility] [address] [id number] [address] [place] [address], [place] [address] Aug, [facility] [address] [id number] [address] [place] [address], [place] [address] Aug, [facility] [address] [id number] [address] [place] [address], [place] [address] Aug, [facility] [address] [id number] [address] [place] [address], [place] [address] Aug, [facility] [address] [id number] [address] [place] [address], [place] [address] 17 Aug, 2014 [facility] [address] [id number] [address] [place] [address], [place] [address] 30 Jul, 2013 [facility] [address] [id number] [address] [place] [address] 30 Sep, 2013 [facility] [address] [id number] [address] [place] [address], [place] [address] 30 Sep, 2013 [facility] [address] [id number] [address] [place] [address], [place] [address] 30 Sep, 2013 [facility] [address] [id number] [address] [place] [address], [place] [address] 25 Jul, 2013 [facility] [address] [id number] [facility] [place] [address] Jul, [facility] [address] [id number] [facility] [place] [address] Jul, [facility] [address] [id number] [facility] [place] [address] Jul, [facility] [address] [id number] [facility] [place] [address] Jul, [facility] [address] [id number] [facility] [place] [address] Jul, [facility] [address] [id number] [address] [place] [address], [place] [address] Jun, [facility] [address] [id number] [address] [place] [address], [place] [address] Jun, [facility] [address] [id number] [address] [place] [address], [place] [address] Jun, [facility] [address] [id number] [address] [place] [address], [place] [address] Jun, [facility] [address] [id number] [address] [place] [address], [place] [address] Jun, [facility] [address] [id number] [address] [place] [address], [place] [address] Jun, [facility] [address] [id number] [address] [place] [address], [place] [address] Jun, [facility] [address] [id number] [address] [place] [address], [place] [address] Jun, [facility] [address] [id number] [address] [place] [address], [place] [address] Jun, [facility] [address] [id number] [address] [place] [address], [place] [address] Jun, [facility] [address] [id number] [address] [place] [address], [place] [address] Jun, [facility] [address] [id number] [facility] [place] [address] Jun, [facility] [address] [id number] [facility] [place] [address] Jun, [facility] [address] [id number] [facility] [place] [address] Jun, [facility] [address] [id number] [address] [place] [address], [place] [address] Jun, [facility] [address] [id number] [address] [place] [address], [place] [address] Jun, [facility] [address] [id number] [address] [place] [address], [place] [address] Jun, [facility] [address] [id number] [address] [place] [address], [place] [address] Jun, [facility] [address] [id number] [address] [place] [address], [place] [address] Jun, [facility] [address] [id number] [address] [place] [address], [place] [address] Jun, [facility] [address] [id number] [address] [place] [address], [place] [address] Jun, [facility] [address] [id number] [address] [place] [address], [place] [address] Jun, [facility] [address] [id number] [address] [place] [address], [place] [address] May, [facility] [address] [id number] [address] [place] [address], [place] [address] May, [facility] [address] [id number] [address] [place] [address], [place] [address] May, [facility] [address] [id number] [address] [place] [address], [place] [address] May, [facility] [address] [id number] [facility] [place] [address] May, 2013 [facility] [address] [id number] [facility] [place] [address] May, 2013 [facility] [address] [id number] [facility] [place] [address] May, 2013 [facility] [address] [id number] [address] [place] [address], [place] [address] May, 2013 [facility] [address] [id number] [address] [place] [address], [place] [address] May, 2013 [facility] [address] [id number] [address] [place] [address], [place] [address] May, [facility] [address] [id number] [address] [place] [address], [place] [address] May, [facility] [address] [id number] [address] [place] [address], [place] [address] May, [facility] [address] [id number] [address] [place] [address], [place] [address] May, [facility] [address] [id number] [address] [place] [address], [place] [address] Apr, [facility] [address] [id number] [address] [place] [address], [place] [address] Apr, [facility] [address] [id number] [address] [place] [address], [place] [address] Apr, [facility] [address] [id number] [address] [place] [address], [place] [address] Apr, [facility] [address] [id number] [address] [place] [address], [place] [address] Apr, [facility] [address] [id number] [address] [place] [address], [place] [address] Apr, [facility] [address] [id number] [address] [place] [address], [place] [address] Apr, [facility] [address] [id number] [address] [place] [address], [place] [address] Apr, [facility] [address] [id number] [address] [place] [address], [place] [address] Apr, [facility] [address] [id number] [address] [place] [address], [place] [address] March, [facility] [address] [id number] [address] [place] [address], [place] [address] March, [facility] [address] [id number] [address] [place] [address], [place] [address] March, [facility] [address] [id number] [address] [place] [address], [place] [address] March, [facility] [address] [id number] [address] [place] [address], [place] [address] March, [facility] [address] [id number] [address] [place] [address], [place] [address] March, [facility] [address] [id number] [address] [place] [address], [place] [address] March, [facility] [address] [id number] [address] [place] [address], [place] [address] March, [facility] [address] [id number] [address] [place] [address], [place] [address] March, [facility] [address] [id number] [address] [place] [address], [place] [address] March, [facility] [address] [id number] [address] [place] [address], [place] [address] March, [facility] [address] [id number] [address] [place] [address], [place] [address] March, [facility] [address] [id number] [address] [place] [address], [place] [address] March, [facility] [address] [id number] [address] [place] [address], [place] [address] March, [facility] [address] [id number] [address] [place] [address], [place] [address] March, [facility] [address] [id number] [address] [place] [address], [place] [address] March, [facility] [address] [id number] [address] [place] [address], [place] [address] March, [facility] [address] [id number] [address] [place] [address], [place] [address] March, [facility] [address] [id number] [address] [place] [address], [place] [address] March, [facility] [address] [id number] [address] [place] [address], [place] [address] March, [facility] [address] [id number] [address] [place] [address], [place] [address] Feb, [facility] [address] [id number] [address] [place] [address], [place] [address] Feb, [facility] [address] [id number] [address] [place] [address], [place] [address] Feb, [facility] [address] [id number] [address] [place] [address], [place] [address] Feb, [facility] [address] [id number] [address] [place] [address], [place] [address] Feb, [facility] [address] [id number] [address] [place] [address], [place] [address] Feb, [facility] [address] [id number] [address] [place] [address], [place] [address] Feb, [facility] [address] [id number] [address] [place] [address], [place] [address] Feb, [facility] [address] [id number] [address] [place] [address], [place] [address] Jan, [facility] [address] [id number] [address] [place] [address], [place] [address] 26 Jan, 2014 [facility] [address] [id number] [address] [place] [address], [place] [address] Jan, [facility] [address] [id number] [facility] [place] [address] 24 Jan, 2014 [facility] [address] [id number] [address] [place] [address], [place] [address] Jan, [facility] [address] [id number] [address] [place] [address], [place] [address] Jan, [facility] [address] [id number] [address] [place] [address], [place] [address] Jan, [facility] [address] [id number] [address] [place] [address], [place] [address] Jan, [facility] [address] [id number] [address] [place] [address], [place] [address] Jan, [facility] [address] [id number] [address] [place] [address], [place] [address] Jan, [facility] [address] [id number] [address] [place] [address], [place] [address] 27 Dec, 2013 [facility] [address] [id number] [address] [place] [address], [place] [address] Dec, [facility] [address] [id number] [address] [place] [address], [place] [address] Dec, [facility] [address] [id number] [address] [place] [address] [address] 2013 [facility] [address] [id number] [address] [place] [address], [place] [address] 2013 [facility] [address] [id number] [address] [place] [address], [place] [address] 13 Dec, 2013 [facility] [address] [id number] [address] [place] [address], [place] [address] Dec, [facility] [address] [id number] [address] [place] [address], [place] [address] Dec, [facility] [address] [id number] [address] [place] [address], [place] [address] Nov, [facility] [address] [id number] [address] [place] [address], [place] [address] Nov, [facility] [address] [id number] [address] [place] [address], [place] [address] Nov, [facility] [address] [id number] [address] [place] [address], [place] [address] Nov, [facility] [address] [id number] [address] [place] [address], [place] [address] Nov, [facility] [address] [id number] [address] [place] [address], [place] [address] Nov, [facility] [address] [id number] [address] [place] [address], [place] [address] Nov, [facility] [address] [id number] [address] [place] [address], [place] [address] Nov, [facility] [address] [id number] [address] [place] [address], [place] [address] Nov, [facility] [address] [id number] [address] [place] [address], [place] [address] Nov, [facility] [address] [id number] [address] [place] [address], [place] [address] Nov, [facility] [address] [id number] [address] [place] [address], [place] [address] Nov, [facility] [address] [id number] [address] [place] [address], [place] [address] Nov, [facility] [address] [id number] [address] [place] [address], [place] [address] Oct, [facility] [address] [id number] [address] [place] [address], [place] [address] 30 Oct, 2013 [facility] [address] [id number] [address] [place] [address], [place] [address] Oct, [facility] [address] [id number] [address] [place] [address], [place] [address] Oct, [facility] [address] [id number] [address] [place] [address], [place] [address] Oct, [facility] [address] [id number] [address] [place] [address], [place] [address] Oct, [facility] [address] [id number] [address] [place] [address], [place] [address] Oct, [facility] [address] [id number] [address] [place] [address], [place] [address] 18 Oct, 2013 [facility] [address] [id number] [address] [place] [address], [place] [address] Oct, [facility] [address] [id number] [address] [place] [address], [place] [address] 17 Oct, 2013 [facility] [address] [id number] [address] [place] [address], [place] [address] Oct, [facility] [address] [id number] [address] [place] [address], [place] [address] 03 Oct, 2013 [facility] [address] [id number] [address] [place] [address], [place] [address] 02 Oct, 2013 [facility] [address] [id number] [address] [place] [address], [place] [address] 02 Oct, 2013 [facility] [address] [id number] [address] [place] [address], [place] [address] 14 Sep, 2013 [facility] [address] [id number] [address] [place] [address], [place] [address] 14 Sep, 2013 [facility] [address] [id number] [address] [place] [address], [place] [address] Sep, [facility] [address] [id number] [address] [place] [address], [place] [address] Sep, [facility] [address] [id number] [address] [place] [address], [place] [address] Sep, [facility] [address] [id number] [address] [place] [address], [place] [address] Sep, [facility] [address] [id number] [address] [place] [address], [place] [address] Sep, [facility] [address] [id number] [address] [place] [address], [place] [address] Sep, [facility] [address] [id number] [address] [place] [address], [place] [address] Sep, [facility] [address] [id number] [address] [place] [address], [place] [address] Sep, [facility] [address] [id number] [address] [place] [address] Aug, [facility] [address] [id number] [address] [place] [address] Aug, [facility] [address] [id number] [address] [place] [address] Aug, [facility] [address] [id number] [address] [place] [address] Aug, [facility] [address] [id number] [address] [place] [address] Aug, [facility] [address] [id number] [address] [place] [address] Aug, [facility] [address] [id number] [address] [place] [address] Aug, [facility] [address] [id number] [address] [place] [address] Aug, [facility] [address] [id number] [address] [place] [id number] 22 Aug, 2013 [facility] [address] [id number] [address] [place] [address], [place] [address] 22 Aug, 2013 [facility] [address] [id number] [address] [place] [id number] 18 Aug, 2013 [facility] [address] [id number] [address] [place] [address], [place] [address] 18 Aug, 2013 [facility] [address] [id number] [address] [place] [address], [place] [address] 18 Aug, 2013 [facility] [address] [id number] [address] [place] [address], [place] [address] 18 Aug, 2013 [facility] [address] [id number] [address] [place] [address], [place] [address] 17 Aug, 2013 [facility] [address] [id number] [address] [place] [id number] 14 Aug, 2013 [facility] [address] [id number] [address] [place] [address], [place] [address] 14 Aug, 2013 [facility] [address] [id number] [address] [place] [address], [place] [address] 01 Aug, 2013 [facility] [address] [id number] [address] [place] [address], [place] [address] 20 Jul, 2013 [facility] [address] [id number] [address] [place] [address], [place] [address] 19 Jul, 2012 [facility] [address] [id number] [address] [place] [address] 18 Jul, 2012 [facility] [address] [id number] [address] [place] [address], [place] [address] 11 Jul, 2012 [facility] [address] [id number] [address] [place] [address] 11 Jul, 2012 [facility] [address] [id number] [address] [place] [address], [place] [address] 28 Jun, 2013 [facility] [address] [id number] [facility] [place] [address] Jun, [facility] [address] [id number] [facility] [place] [address] Jun, [facility] [address] [id number] [facility] [place] [address] Jun, [facility] [address] [id number] [address] [place] [address], [place] [address] Jun, [facility] [address] [id number] [address] [place] [address], [place] [address] Jun, [facility] [address] [id number] [address] [place] [address], [place] [address] Jun, [facility] [address] [id number] [address] [place] [address], [place] [address] Jun, [facility] [address] [id number] [address] [place] [address], [place] [address] Jun, [facility] [address] [id number] [address] [place] [address], [place] [address] Jun, [facility] [address] [id number] [address] [place] [address], [place] [address] May, [facility] [address] [id number] [address] [place] [address], [place] [address] May, [facility] [address] [id number] [address] [place] [address], [place] [address] May, [facility] [address] [id number] [address] [place] [address], [place] [address] May, [facility] [address] [id number] [address] [place] [address], [place] [address] May, [facility] [address] [id number] [address] [place] [address], [place] [address] May, [facility] [address] [id number] [address] [place] [address], [place] [address] May, [facility] [address] [id number] [address] [place] [address], [place] [address] May, [facility] [address] [id number] [address] [place] [address], [place] [address] May, [facility] [address] [id number] [address] [place] [address], [place] [address] Apr, [facility] [address] [id number] [address] [place] [address], [place] [address] Apr, [facility] [address] [id number] [address] [place] [address], [place] [address] Apr, [facility] [address] [id number] [address] [place] [address], [place] [address] Apr, [facility] [address] [id number] [address] [place] [address], [place] [address] Apr, [facility] [address] [id number] [address] [place] [address], [place] [address] Apr, [facility] [address] [id number] [address] [place] [address], [place] [address] Apr, [facility] [address] [id number] [address] [place] [address], [place] [address] March, [facility] [address] [id number] [address] [place] [address], [place] [address] Feb, [facility] [address] [id number] [address] [place] [address], [place] [address] Feb, [facility] [address] [id number] [address] [place] [address], [place] [address] Feb, [facility] [address] [id number] [address] [place] [address], [place] [address] Jan, [facility] [address] [id number] [address] [place] [address], [place] [address] Jan, [facility] [address] [id number] [address] [place] [address], [place] [address] 19 Jan, 2013 [facility] [address] [id number] [address] [place] [address], [place] [address] 14 Jan, 2013 [facility] [address] [id number] [address] [place] [address], [place] [address] 12 Jan, 2013 [facility] [address] [id number] [address] [place] [address], [place] [address] 08 Jan, 2013 [facility] [address] [id number] [address] [place] [address], [place] [address] 07 Jan, 2013 [facility] [address] [id number] [address] [place] [address], [place] [address] 04 Jan, 2013 [facility] [address] [id number] [address] [place] [address], [place] [address] 28 Dec, 2012 [facility] [address] [id number] [address] [place] [address], [place] [address] 25 Dec, 2012 [facility] [address] [id number] [address] [place] [address], [place] [address] 13 Dec, 2012 [facility] [address] [id number] [address] [place] [address], [place] [address] 11 Dec, 2012 [facility] [address] [id number] [address] [place] [address], [place] [address] 07 Dec, 2012 [facility] [address] [id number] [address] [place] [address], [place] [address] 06 Dec, 2012 [facility] [address] [id number] [address] [place] [address], [place] [address] 05 Dec, 2012 [facility] [address] [id number] [address] [place] [address], [place] [address] Nov, [facility] [address] [id number] [address] [place] [address], [place] [address] 24 Nov, 2012 [facility] [address] [id number] [address] [place] [address], [place] [address] 18 Nov, 2012 [facility] [address] [id number] [address] [place] [address], [place] [address] 15 Nov, 2012 [facility] [address] [id number] [address] [place] [address], [place] [address] Nov, [facility] [address] [id number] [address] [place] [address], [place] [address] Nov, [facility] [address] [id number] [address] [place] [address], [place] [address] Nov, [facility] [address] [id number] [address] [place] [address], [place] [address] Oct, [facility] [address] [id number] [address] [place] [address], [place] [address] Oct, [facility] [address] [id number] [address] [place] [address], [place] [address] Oct, [facility] [address] [id number] [address] [place] [address], [place] [address] Oct, [facility] [address] [id number] [address] [place] [address], [place] [address] Oct, [facility] [address] [id number] [address] [place] [address], [place] [address] Oct, [facility] [address] [id number] [address] [place] [address], [place] [address] Oct, [facility] [address] [id number] [address] [place] [address], [place] [address] 07 Oct, 2012 [facility] [address] [id number] [address] [place] [address], [place] [address] Oct, [facility] [address] [id number] [address] [place] [address], [place] [address] 05 Oct, 2012 [facility] [address] [id number] [address] [place] [address], [place] [address] Oct, [facility] [address] [id number] [address] [place] [address], [place] [address] Oct, [facility] [address] [id number] [address] [place] [address], [place] [address] Sep, [facility] [address] [id number] [address] [place] [address], [place] [address] Sep, [facility] [address] [id number] [address] [place] [address], [place] [address] Sep, [facility] [address] [id number] [address] [place] [address], [place] [address] Sep, [facility] [address] [id number] [address] [place] [address], [place] [address] Sep, [facility] [address] [id number] [address] [place] [address], [place] [address] Sep, [facility] [address] [id number] [address] [place] [address], [place] [address] Sep, [facility] [address] [id number] [address] [place] [address], [place] [address] Sep, [facility] [address] [id number] [address] [place] [address], [place] [address] Sep, [facility] [address] [id number] [address] [place] [address], [place] [address] Sep, [facility] [address] [id number] [address] [place] [address], [place] [address] Sep, [facility] [address] [id number] [address] [place] [address] Aug, [facility] [address] [id number] [address] [place] [address], [place] [address] Aug, [facility] [address] [id number] [address] [place] [address], [place] [address] Aug, [facility] [address] [id number] [address] [place] [address] Aug, [facility] [address] [id number] [address] [place] [address], [place] [address] Aug, [facility] [address] [id number] [address] [place] [address], [place] [address] Aug, [facility] [address] [id number] [address] [place] [address], [place] [address] Aug, [facility] [address] [id number] [address] [place] [address], [place] [address] Aug, [facility] [address] [id number] [address] [place] [address], [place] [address] Aug, [facility] [address] [id number] [address] [place] [address], [place] [address] Aug, [facility] [address] [id number] [address] [place] [address], [place] [address] Jul, [facility] [address] [id number] [address] [place] [address], [place] [address] 20 Jul, 2012 [facility] [address] [id number] [address] [place] [address], [place] [address] Jul, [facility] [address] [id number] [address] [place] [address], [place] [address] 06 Jul, 2012 [facility] [address] [id number] [address] [place] [address], [place] [address] 30 Jun, 2012 [facility] [address] [id number] [address] [place] [address], [place] [address] Jun, [facility] [address] [id number] [address] [place] [address], [place] [address] 16 Jun, 2012 [facility] [address] [id number] [address] [place] [address], [place] [address] Jun, [facility] [address] [id number] [address] [place] [address], [place] [address] Jun, [facility] [address] [id number] [address] [place] [address], [place] [address] Jun, [facility] [address] [id number] [address] [place] [address], [place] [address] Jun, [facility] [address] [id number] [address] [place] [address], [place] [address] May, [facility] [address] [id number] [address] [place] [address], [place] [address] May, [facility] [address] [id number] [address] [place] [address], [place] [address] May, [facility] [address] [id number] [address] [place] [address], [place] [address] May, [facility] [address] [id number] [address] [place] [address], [place] [address] May, [facility] [address] [id number] [address] [place] [address], [place] [address] Apr, [facility] [address] [id number] [address] [place] [address], [place] [address] Apr, [facility] [address] [id number] [address] [place] [address], [place] [address] Apr, [facility] [address] [id number] [address] [place] [address], [place] [address] Apr, [facility] [address] [id number] [address] [place] [address], [place] [address] Apr, [facility] [address] [id number] [address] [place] [address], [place] [address] March, [facility] [address] [id number] [address] [place] [address], [place] [address] March, [facility] [address] [id number] [address] [place] [address], [place] [address] March, [facility] [address] [id number] [address] [place] [address], [place] [address] March, [facility] [address] [id number] [address] [place] [address], [place] [address] March, [facility] [address] [id number] [address] [place] [address], [place] [address] March, [facility] [address] [id number] [address] [place] [address], [place] [address] March, [facility] [address] [id number] [address] [place] [address], [place] [address] March, [facility] [address] [id number] [address] [place] [address], [place] [address] March, [facility] [address] [id number] [address] [place] [address], [place] [address] March, [facility] [address] [id number] [address] [place] [address], [place] [address] Feb, [facility] [address] [id number] [address] [place] [address], [place] [address] Feb, [facility] [address] [id number] [address] [place] [address], [place] [address] Feb, [facility] [address] [id number] [address] [place] [address], [place] [address] Feb, [facility] [address] [id number] [address] [place] [address], [place] [address] Feb, [facility] [address] [id number] [address] [place] [address], [place] [address] Feb, [facility] [address] [id number] [address] [place] [address], [place] [address] Feb, [facility] [address] [id number] [address] [place] [address], [place] [address] Feb, [facility] [address] [id number] [address] [place] [address], [place] [address] Feb, [facility] [address] [id number] [address] [place] [address], [place] [address] Jan, [facility] [address] [id number] [address] [place] [address], [place] [address] 07 Jan, 2012 [facility] [address] [id number] [address] [place] [address], [place] [address] 05 Jan, 2012 [facility] [address] [id number] [address] [place] [address], [place] [address] 02 Jan, 2012 [facility] [address] [id number] [address] [place] [address], [place] [address] 29 Dec, 2011 [facility] [address] [id number] [address] [place] [address], [place] [address] Dec, [facility] [address] [id number] [address] [place] [address], [place] [address] Nov, [facility] [address] [id number] [address] [place] [address], [place] [address] Nov, [facility] [address] [id number] [address] [place] [address], [place] [address] Nov, [facility] [address] [id number] [address] [place] [address], [place] [address] Nov, [facility] [address] [id number] [address] [place] [address], [place] [address] Nov, [facility] [address] [id number] [address] [place] [address], [place] [address] Oct, [facility] [address] [id number] [address] [place] [address], [place] [address] Oct, [facility] [address] [id number] [address] [place] [address], [place] [address] Oct, [facility] [address] [id number] [address] [place] [address], [place] [address] Oct, [facility] [address] [id number] [address] [place] [address], [place] [address] Oct, [facility] [address] [id number] [address] [place] [address] Oct, [facility] [address] [id number] [address] [place] [address] Oct, [facility] [address] [id number] [address] [place] [address] Oct, [facility] [address] [facility] [id number] [address] [place] [address] Sep, IMMUNIZATIONS No Known Immunizations SOCIAL HISTORY Never Assessed REASON FOR VISIT PLAN OF CARE VITAL SIGNS MEDICATIONS Unknown Medications RESULTS No Results PROCEDURES No Known procedures INSTRUCTIONS MEDICATIONS ADMINISTERED No Known Medications MEDICAL (GENERAL) HISTORY Type Description Date Medical History 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
--- OUTSIDE RECORDS SUMMARY | 2020-06-18 15:22 | XMS REPORT ---
Author Author Sanjuanita JOHNSON [facility] Address [address] [place] [address] Care Team Providers Care Chemical Economist Name Role Phone ELIZABETH SHARIF Unavailable PROBLEMS Type Condition ICD9-CM Code NRQ30-DF Code Onset Dates Condition S tatus SNOMED Code Problem Coronary artery disease I25.10 Active 22398637 Problem Hypertension I10 Active 1961428 3 Problem Other chronic pain G89.29 Active 8 2742416 Problem Hyperlipidemia E78.5 Active 90886 004 Problem Type 2 diabetes mellitus wit hout complication, without long-term current use of insulin E11.9 Active 129781895 Problem Low back pain M54.5 Active 433923 009 Problem Pharyngeal dysphagia R13.13 Active 74152682098493 Problem Anxiety F41.9 Active 08236812 Problem Peripheral vascular disease I73.9 Ac tive 083207058 Problem Suprapubic catheter Z93.59 Active 897101658 Problem Reactive depression F32.9 Active 45638440 Problem Neurogenic bladder N31.9 Active 3 42597911 Problem Ventral hernia without obstruction or gangrene K43 .9 Active 305882796 Problem Insomnia G47.00 Active 859313961 Problem Paroxysmal atrial fibrillation I48.0 Active 682409880 Problem Postmenopausal atrophic vaginitis N95.2 Active 87063505 Problem Encounter for suprapubic catheter care Z43.5 Active 531255068 ALLERGIES No Information ENCOUNTERS Encounter Location Date Diagnosis Via [facility] [address] [place] [id number] Jun, [facility] [address] [facility] [id number] [address] [place] [address] May, [facility] [address] [facility] [id number] [address] [place] [address] Apr, [facility] [address] [place] [id number] Apr, Strain of right shoulder, subsequent enc ounter S46.911D [facility] [address] [id number] [address] [place] [address] 14 Apr, 2019 Strain of right shoulder, scherer bsequent encounter S46.911D and Anxiety F41.9 [facility] [address] [place] [id number] 13 Apr, 2019 Type 2 diabetes mellitus without complic ation, without long-term current use of insulin E11.9 and Neurogenic bladder N31.9 [facility] [address] [place] [id number] 11 Apr, 2019 Strain of right shoulder, subsequent enc ounter S46.911D ; History of GI bleed Z87.19 ; Neurogenic bladder N31.9 and Reactive depression F32.9 [facility] [address] [id number] [address] [place] [address] 10 Apr, 2019 Acute pain of left shoulder M25.512 [facility] [address] [id number] [address] [place] [id number] 07 Apr, 2019 [facility] [address] [id number] [address] [place] [id number] 06 Apr, 2019 Anxiety F41.9 and 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 [facility] [address] [place] [id number] March, Gastrointestinal hemorrhage associated w ith acute gastritis K29.01 [facility] [address] [id number] [address] [place] [address] March, [facility] [address] [place] [id number] March, Bronchitis J40 [facility] [address] [id number] [address] [place] [address] March, Cough R05 [facility] [address] [id number] [address] [place] [address] March, Other chronic pain G89.29 [facility] [address] [id number] [address] [place] [address] March, Anxiety F41.9 [facility] [address] [id number] [address] [place] [phone] March, [facility] [address] [id number] [address] [place] [address] Feb, Other chronic pain G89.29 [facility] [address] [id number] [address] [place] [address] Feb, Anxiety F41.9 [facility] [address] [id number] [address] [place] [address] Feb, Other chronic pain G89.29 [facility] [address] [place] [id number] Feb, Neurogenic bladder N31.9 and Suprapubic catheter Z93.59 [facility] [address] [id number] [address] [place] [address] Jan, Anxiety F41.9 [facility] [address] [id number] [address] [place] [address] Dec, Anxiety F41.9 [facility] [address] [id number] [address] [place] [address] Dec, Other chronic pain G89.29 an d Anxiety F41.9 [facility] [address] [id number] [address] [place] [address] Dec, Via [facility] [address] [place] [id number] Dec, Neurogenic bladder N31.9 and Suprapubic catheter Z93.59 [facility] [address] [id number] [address] [place] [address] Nov, Other chronic pain G89.29 an d Anxiety F41.9 [facility] [address] [id number] [address] [place] [address] Nov, Via [facility] [address] [place] [id number] Nov, Suprapubic catheter Z93.59 [facility] [address] [id number] [address] [place] [address] Oct, Other chronic pain G89.29 an d Anxiety F41.9 [facility] [address] [id number] [address] [place] [address] Oct, [facility] [address] [id number] [address] [place] [address] Oct, Suprapubic catheter Z93.59 [facility] [address] [id number] [address] [place] [address] Oct, Via [facility] [address] [place] [id number] Oct, [facility] [address] [id number] [address] [place] [address] Oct, Anxiety F41.9 [facility] [address] [id number] [address] [place] [address] Oct, Anxiety F41.9 [facility] [address] [place] [id number] Oct, Other chronic pain G89.29 [facility] [address] [id number] [address] [place] [address] Sep, Other chronic pain G89.29 [facility] [address] [place] [id number] Sep, Suprapubic catheter Z93.59 and Cervicalg ia M54.2 [facility] [address] [id number] [address] [place] [address] Sep, [facility] [address] [id number] [address] [place] [address] Sep, [facility] [address] [id number] [address] [place] [address] Sep, Via [facility] [address] [place] [id number] Aug, Cystitis N30.90 [facility] [address] [id number] [address] [place] [address] Aug, [facility] [address] [id number] [address] [place] [address] Aug, Other chronic pain G89.29 [facility] [address] [id number] [address] [place] [address] Aug, Via [facility] [address] [place] [id number] Aug, Encounter for suprapubic catheter care Z 43.5 [facility] [address] [id number] [address] [place] [address] Jul, Via [facility] [address] [place] [id number] Jul, [facility] [address] [id number] [address] [place] [address] Jul, Other chronic pain G89.29 [facility] [address] [id number] [address] [place] [address] Jul, [facility] [address] [id number] [address] [place] [address] Jul, Via [facility] [address] [place] [id number] Jun, Postmenopausal atrophic vaginitis N95.2 [facility] [address] [id number] [address] [place] [address] Jun, Other chronic pain G89.29 [facility] [address] [id number] [address] [place] [address] Jun, [facility] [address] [place] [id number] May, Anxiety F41.9 ; Type 2 diabetes mellitus without complication, without long-term current use of insulin E11.9 ; Hypertension I10 ; Low back pain M54.5 ; Paroxysmal atrial fibrillation I48.0 and 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 [facility] [address] [id number] [address] [place] [address] May, Other chronic pain G89.29 [facility] [address] [place] [id number] May, Low back pain M54.5 [facility] [address] [id number] [address] [place] [address] May, [facility] [address] [id number] [address] [place] [address] Apr, Other chronic pain G89.29 [facility] [address] [id number] [address] [place] [address] Apr, [facility] [address] [id number] [address] [place] [address] Apr, Via [facility] [address] [place] [id number] Apr, Closed compression fracture of L3 lumbar vertebra with routine healing, subsequent encounter S32.030D [facility] [address] [place] [id number] Apr, Low back pain M54.5 Via [facility] [employer] [address] [place] [id number] Apr, Coccydynia M53.3 [facility] [address] [id number] [address] [place] [address] March, [facility] [address] [id number] [address] [place] [address] March, Other chronic pain G89.29 [facility] [address] [id number] [address] [place] [address] March, [facility] [address] [id number] [address] [place] [address] March, [facility] [address] [id number] [address] [place] [address] Feb, [facility] [address] [id number] [address] [place] [address] Feb, Other chronic pain G89.29 Via [facility] [address] [place] [id number] Feb, Other chronic pain G89.29 and Anxiety F4 1.9 [facility] [address] [id number] [address] [place] [address] Feb, [facility] [address] [id number] [address] [place] [address] Jan, [facility] [address] [id number] [address] [place] [phone] Jan, [facility] [address] [id number] [address] [place] [address] Jan, [facility] [address] [facility] [id number] [address] [place] [address] Jan, [facility] [address] [id number] [address] [place] [address] Dec, Via [employer] [address] [place] [id number] Dec, Peripheral vascular disease I73.9 ; 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 ; Other chronic pain G89.29 ; Anxiety F41.9 ; Reactive depression F32.9 ; Insomnia G47.00 and Type 2 diabetes mellitus without complication, without long-term current use of insulin E11.9 [facility] [address] [id number] [place] [address] Nov, [facility] [address] [id number] [place] [id number] Nov, Anxiety F41.9 [facility] [address] [facility] [id number] [address] [place] [address] Nov, [facility] [address] [id number] [place] [id number] Nov, Anxiety F41.9 [facility] [employer] [address] [place] [id number] Nov, Status post surgery Z98.890 ; Confused R 41.0 ; Anxiety F41.9 and Other chronic pain G89.29 [facility] [address] [id number] [place] [id number] Nov, Other chronic pain G89.29 [facility] [address] [id number] [address] [place] [address] Oct, [facility] [address] [id number] [place] [id number] Oct, Other chronic pain G89.29 [facility] [address] [id number] [address] [place] [address] Oct, Anxiety F41.9 [facility] [address] [id number] [place] [id number] Sep, Other chronic pain G89.29 [facility] [address] [id number] [place] [id number] Sep, [facility] [employer] [address] [place] [id number] Aug, Dysuria R30.0 and Anxiety F41.9 [facility] [address] [id number] [address] [place] [address] Aug, [facility] [address] [id number] [place] [id number] Aug, Other chronic pain G89.29 [facility] [address] [id number] [address] [place] [address] Jul, Other chronic pain G89.29 [facility] [address] [id number] [place] [id number] Jun, [facility] [address] [id number] [place] [id number] Jun, Other chronic pain G89.29 [facility] [address] [id number] [address] [place] [address] Jun, [facility] [address] [id number] [address] [place] [address] May, Other chronic pain G89.29 [facility] [address] [id number] [address] [place] [address] Apr, Other chronic pain G89.29 Via [facility] [address] [place] [id number] Apr, Reactive depression F32.9 and Pharyngeal dysphagia R13.13 [facility] [address] [id number] [address] [place] [address] Apr, Urinary tract infection with out hematuria, site unspecified N39.0 [facility] [address] [id number] [address] [place] [address] March, Other chronic pain G89.29 [facility] [address] [id number] [address] [place] [address] Feb, Other chronic pain G89.29 [facility] [address] [id number] [address] [place] [address] Feb, [facility] [id number] [place] [id number] Feb, Via [facility] [address] [place] [id number] Feb, Dysuria R30.0 and Ventral hernia without obstruction or gangrene K43.9 [facility] [address] [id number] [address] [place] [address] Jan, Other chronic pain G89.29 [facility] [address] [id number] [place] [id number] Dec, Other chronic pain G89.29 [facility] [address] [id number] [address] [place] [address] Nov, Other chronic pain G89.29 [facility] [address] [place] [id number] Nov, Lymphadenitis I88.9 [facility] [address] [id number] [address] [place] [address] Nov, Other chronic pain G89.29 [facility] [address] [id number] [address] [place] [address] Nov, [facility] [address] [id number] [place] [id number] Nov, Other chronic pain G89.29 [facility] [address] [place] [id number] Oct, Low back pain M54.5 ; Hypertension I10 a nd Type 2 diabetes mellitus without complication, without long-term current use of insulin E11.9 [facility] [address] [id number] [address] [place] [address] Oct, [facility] [address] [id number] [address] [place] [address] Oct, [facility] [address] [id number] [address] [place] [address] Oct, [facility] [address] [id number] [address] [place] [address] Oct, [facility] [address] [id number] [address] [place] [address] Sep, [facility] [address] [id number] [address] [place] [address] Sep, [facility] [address] [id number] [address] [place] [address] Aug, Other chronic pain G89.29 [facility] [address] [id number] [address] [place] [address] Jul, [facility] [address] [id number] [address] [place] [address] Jul, [facility] [address] [id number] [address] [place] [address] Jul, [facility] [address] [id number] [address] [place] [address] Jun, [facility] [address] [id number] [address] [place] [address] Jun, [facility] [address] [place] [id number] Jun, Low back pain M54.5 ; Other chronic pain G89.29 and Coronary artery disease I25.10 [facility] [address] [id number] [address] [place] [address] Jun, [facility] [address] [id number] [address] [place] [address] May, [facility] [address] [id number] [address] [place] [address] May, [facility] [address] [id number] [address] [place] [address] May, Other chronic pain G89.29 [facility] [address] [id number] [address] [place] [address] May, [facility] [address] [id number] [address] [place] [address] Apr, [facility] [address] [id number] [address] [place] [address] 17 Apr, 2016 Acute cystitis without hemat uria N30.00 [facility] [address] [id number] [address] [place] [address] Apr, Acute cystitis without hemat uria N30.00 ; Coronary artery disease I25.10 ; Low back pain M54.5 and Other chronic pain G89.29 [facility] [address] [id number] [address] [place] [address] 13 Apr, 2016 Other chronic pain G89.29 [facility] [address] [id number] [address] [place] [address] March, Other chronic pain G89.29 [facility] [address] [id number] [address] [place] [address] 18 Feb, 2016 [facility] [address] [id number] [address] [place] [address] Feb, Arthritis M19.90 [facility] [address] [id number] [address] [place] [address] Feb, [facility] [address] [id number] [address] [place] [address] Jan, [facility] [address] [id number] [address] [place] [address] Jan, [facility] [address] [id number] [address] [place] [address] Jan, Other chronic pain G89.29 [facility] [address] [id number] [address] [place] [address] Jan, Hypertension I10 ; Coronary artery disease I25.10 and Insomnia G47.00 [facility] [address] [id number] [address] [place] [address] Jan, [facility] [address] [id number] [address] [place] [address] Dec, Right hip pain M25.551 [facility] [address] [id number] [address] [place] [address] Dec, [facility] [address] [id number] [address] [place] [address] Dec, [facility] [address] [id number] [address] [place] [address] Dec, [facility] [address] [id number] [address] [place] [address] Dec, Other chronic pain G89.29 [facility] [address] [id number] [address] [place] [address] Dec, [facility] [address] [id number] [address] [place] [address] Nov, [facility] [address] [facility] [id number] [address] [place] [address] Nov, Other chronic pain G89.29 [facility] [address] [id number] [address] [place] [address] Nov, Right hip pain M25.551 and C oronary artery disease I25.10 [facility] [address] [id number] [address] [place] [address] Nov, Other chronic pain G89.29 [facility] [address] [facility] [id number] [address] [place] [address] Oct, [facility] [address] [facility] [id number] [address] [place] [address] Oct, [facility] [address] [facility] [id number] [address] [place] [address] Sep, [facility] [address] [facility] [id number] [address] [place] [address] Sep, [facility] [address] [facility] [id number] [address] [place] [id number] Aug, [facility] [address] [facility] [id number] [address] [place] [phone] Aug, Hypertension I10 ; Coronary artery disease I25.10 and Arthritis M19.90 [facility] [address] [id number] [address] [place] [phone] Jun, [facility] [address] [facility] [id number] [address] [place] [id number] Jun, Essential hypertension, jayson gn 401.1 ; Other chronic pain 338.29 and Chronic airway obstruction, not elsewhere classified 496 [facility] [address] [id number] [address] [place] [address], [place] [id number] Jun, [facility] [address] [id number] [address] [place] [address], [place] [id number] Jun, [facility] [address] [id number] [address] [place] [address], [place] [address] Jun, [facility] [address] [id number] [address] [place] [address], [place] [id number] May, [facility] [address] [id number] [address] [place] [address], [place] [address] May, [facility] [address] [id number] [address] [place] [address], [place] [id number] Apr, [facility] [address] [id number] [address] [place] [address], [place] [id number] Apr, [facility] [address] [id number] [address] [place] [address], [place] [id number] Apr, [facility] [address] [id number] [address] [place] [address], [place] [id number] March, [facility] [address] [id number] [address] [place] [address], [place] [id number] March, [facility] [address] [id number] [address] [place] [address], [place] [id number] March, [facility] [address] [id number] [address] [place] [address], [place] [address] March, [facility] [address] [id number] [address] [place] [address], [place] [address] March, Sialadenitis 527.2 [facility] [address] [id number] [address] [place] [address], [place] [id number] Feb, [facility] [address] [id number] [address] [place] [address], [place] [id number] Feb, [facility] [address] [id number] [address] [place] [address], [place] [address] 29 Feb, 2015 [facility] [address] [id number] [address] [place] [address], [place] [address] 14 Feb, 2015 [facility] [address] [id number] [address] [place] [address], [place] [address] 13 Feb, 2015 [facility] [address] [id number] [address] [place] [address], [place] [address] Jan, [facility] [address] [id number] [address] [place] [address], [place] [address] Jan, [facility] [address] [id number] [address] [place] [address], [place] [address] Jan, [facility] [address] [id number] [address] [place] [address], [place] [address] Jan, [facility] [address] [id number] [address] [place] [address], [place] [address] Jan, [facility] [address] [id number] [address] [place] [address], [place] [address] Jan, [facility] [address] [id number] [address] [place] [address], [place] [address] Dec, [facility] [address] [id number] [address] [place] [address], [place] [address] Dec, [facility] [address] [id number] [address] [place] [address], [place] [address] Dec, 2014 [facility] [address] [id number] [address] [place] [address], [place] [address] Dec, 2014 [facility] [address] [id number] [address] [place] [address], [place] [address] Dec, 2014 [facility] [address] [id number] [address] [place] [address], [place] [address] Dec, 2014 [facility] [address] [id number] [address] [place] [address], [place] [address] Nov, [facility] [address] [id number] [address] [place] [address], [place] [address] Nov, [facility] [address] [id number] [address] [place] [address], [place] [address] Nov, [facility] [address] [id number] [address] [place] [address], [place] [address] Nov, [facility] [address] [id number] [address] [place] [address], [place] [address] Nov, [facility] [address] [id number] [address] [place] [address], [place] [address] Nov, [facility] [address] [id number] [address] [place] [address], [place] [address] Nov, [facility] [address] [id number] [address] [place] [address], [place] [address] Nov, [facility] [address] [id number] [address] [place] [address], [place] [address] Nov, [facility] [address] [id number] [address] [place] [address], [place] [address] Nov, [facility] [address] [id number] [address] [place] [address], [place] [address] Nov, [facility] [address] [id number] [address] [place] [address], [place] [address] Nov, [facility] [address] [id number] [address] [place] [address], [place] [address] Nov, [facility] [address] [id number] [address] [place] [address], [place] [address] Nov, [facility] [address] [id number] [address] [place] [address], [place] [address] Oct, [facility] [address] [id number] [address] [place] [address], [place] [address] Oct, [facility] [address] [id number] [address] [place] [address], [place] [address] Oct, [facility] [address] [id number] [address] [place] [address], [place] [address] Oct, [facility] [address] [id number] [address] [place] [address], [place] [address] Oct, [facility] [address] [id number] [address] [place] [address], [place] [address] Oct, [facility] [address] [id number] [address] [place] [address], [place] [address] Oct, [facility] [address] [id number] [address] [place] [address], [place] [address] Oct, [facility] [address] [id number] [address] [place] [address], [place] [address] Oct, [facility] [address] [id number] [address] [place] [address], [place] [address] Sep, [facility] [address] [id number] [address] [place] [address], [place] [address] Sep, [facility] [address] [id number] [address] [place] [address], [place] [address] Sep, [facility] [address] [id number] [address] [place] [address], [place] [address] Sep, [facility] [address] [id number] [address] [place] [address], [place] [address] Sep, [facility] [address] [id number] [address] [place] [address], [place] [address] Sep, [facility] [address] [id number] [address] [place] [address], [place] [address] Sep, [facility] [address] [id number] [address] [place] [address], [place] [address] Sep, [facility] [address] [id number] [address] [place] [address], [place] [address] Sep, [facility] [address] [id number] [address] [place] [address], [place] [address] Sep, [facility] [address] [id number] [address] [place] [address], [place] [address] Sep, [facility] [address] [id number] [address] [place] [address], [place] [address] Sep, [facility] [address] [id number] [address] [place] [address], [place] [address] Aug, [facility] [address] [id number] [address] [place] [address], [place] [address] Aug, [facility] [address] [id number] [address] [place] [address], [place] [address] Aug, [facility] [address] [id number] [address] [place] [address], [place] [address] Aug, [facility] [address] [id number] [address] [place] [address], [place] [address] Aug, [facility] [address] [id number] [address] [place] [address], [place] [address] Aug, [facility] [address] [id number] [address] [place] [address], [place] [address] Aug, [facility] [address] [id number] [address] [place] [address], [place] [address] Aug, [facility] [address] [id number] [address] [place] [address], [place] [address] 30 Jul, 2013 [facility] [address] [id number] [address] [place] [address], [place] [address] 30 Sep, 2013 [facility] [address] [id number] [address] [place] [address], [place] [address] 30 Sep, 2013 [facility] [address] [id number] [address] [place] [address], [place] [address] 30 Jul, 2013 [facility] [address] [id number] [address] [place] [address], [place] [address] 25 Jul2013 [facility] [address] [id number] [facility] [place] [address] Jul, [facility] [address] [id number] [facility] [place] [address] Jul, [facility] [address] [id number] [facility] [place] [address] Jul, [facility] [address] [id number] [address] [place] [address], [place] [address] Jul, [facility] [address] [id number] [address] [place] [address], [place] [address] Jul, [facility] [address] [id number] [address] [place] [address], [place] [address] Jun, [facility] [address] [id number] [address] [place] [address], [place] [address] Jun, [facility] [address] [id number] [address] [place] [address], [place] [address] Jun, [facility] [address] [id number] [address] [place] [address], [place] [address] Jun, [facility] [address] [id number] [address] [place] [address], [place] [address] Jun, [facility] [address] [id number] [address] [place] [address], [place] [address] Jun, [facility] [address] [id number] [address] [place] [address], [place] [address] Jun, [facility] [address] [id number] [address] [place] [address], [place] [address] Jun, [facility] [address] [id number] [address] [place] [address], [place] [address] Jun, [facility] [address] [id number] [address] [place] [address], [place] [address] Jun, [facility] [address] [id number] [address] [place] [address], [place] [address] Jun, [facility] [address] [id number] [facility] [place] [address] Jun, [facility] [address] [id number] [address] [place] [address], [place] [address] Jun, [facility] [address] [id number] [address] [place] [address], [place] [address] Jun, [facility] [address] [id number] [address] [place] [address], [place] [address] Jun, [facility] [address] [id number] [address] [place] [address], [place] [address] Jun, [facility] [address] [id number] [address] [place] [address], [place] [address] Jun, [facility] [address] [id number] [address] [place] [address], [place] [address] Jun, [facility] [address] [id number] [address] [place] [address], [place] [address] Jun, [facility] [address] [id number] [address] [place] [address], [place] [address] Jun, [facility] [address] [id number] [address] [place] [address], [place] [address] Jun, [facility] [address] [id number] [address] [place] [address], [place] [address] Jun, [facility] [address] [id number] [address] [place] [address], [place] [address] May, [facility] [address] [id number] [address] [place] [address], [place] [address] May, [facility] [address] [id number] [address] [place] [address], [place] [address] May, [facility] [address] [id number] [address] [place] [address], [place] [address] May, [facility] [address] [id number] [facility] [place] [address] May, 2013 [facility] [address] [id number] [facility] [place] [address] May, 2013 [facility] [address] [id number] [facility] [place] [address] May, 2013 [facility] [address] [id number] [address] [place] [address], [place] [address] May, 2013 [facility] [address] [id number] [address] [place] [address], [place] [address] May, 2013 [facility] [address] [id number] [address] [place] [address], [place] [address] May, [facility] [address] [id number] [address] [place] [address], [place] [address] May, [facility] [address] [id number] [address] [place] [address], [place] [address] May, [facility] [address] [id number] [address] [place] [address], [place] [address] May, [facility] [address] [id number] [address] [place] [address], [place] [address] Apr, [facility] [address] [id number] [address] [place] [address], [place] [address] Apr, [facility] [address] [id number] [address] [place] [address], [place] [address] Apr, [facility] [address] [id number] [address] [place] [address], [place] [address] Apr, [facility] [address] [id number] [address] [place] [address], [place] [address] Apr, [facility] [address] [id number] [address] [place] [address], [place] [address] Apr, [facility] [address] [id number] [address] [place] [address], [place] [address] Apr, [facility] [address] [id number] [address] [place] [address], [place] [address] Apr, [facility] [address] [id number] [address] [place] [address], [place] [address] Apr, [facility] [address] [id number] [address] [place] [address], [place] [address] March, [facility] [address] [id number] [address] [place] [address], [place] [address] March, [facility] [address] [id number] [address] [place] [address], [place] [address] March, [facility] [address] [id number] [address] [place] [address], [place] [address] March, [facility] [address] [id number] [address] [place] [address], [place] [address] March, [facility] [address] [id number] [address] [place] [address], [place] [address] March, [facility] [address] [id number] [address] [place] [address], [place] [address] March, [facility] [address] [id number] [address] [place] [address], [place] [address] March, [facility] [address] [id number] [address] [place] [address], [place] [address] March, [facility] [address] [id number] [address] [place] [address], [place] [address] March, [facility] [address] [id number] [address] [place] [address], [place] [address] March, [facility] [address] [id number] [address] [place] [address], [place] [address] March, [facility] [address] [id number] [address] [place] [address], [place] [address] March, [facility] [address] [id number] [address] [place] [address], [place] [address] March, [facility] [address] [id number] [address] [place] [address], [place] [address] March, [facility] [address] [id number] [address] [place] [address], [place] [address] March, [facility] [address] [id number] [address] [place] [address], [place] [address] March, [facility] [address] [id number] [address] [place] [address], [place] [address] March, [facility] [address] [id number] [address] [place] [address], [place] [address] March, [facility] [address] [id number] [address] [place] [address], [place] [address] March, [facility] [address] [id number] [address] [place] [address], [place] [address] Feb, [facility] [address] [id number] [address] [place] [address], [place] [address] Feb, [facility] [address] [id number] [address] [place] [address], [place] [address] Feb, [facility] [address] [id number] [address] [place] [address], [place] [address] Feb, [facility] [address] [id number] [address] [place] [address], [place] [address] Feb, [facility] [address] [id number] [address] [place] [address], [place] [address] Feb, [facility] [address] [id number] [address] [place] [address], [place] [address] Feb, [facility] [address] [id number] [address] [place] [address], [place] [address] Feb, [facility] [address] [id number] [address] [place] [address], [place] [address] Jan, [facility] [address] [id number] [address] [place] [address], [place] [address] Jan, [facility] [address] [id number] [facility] [place] [address] Jan, [facility] [address] [id number] [facility] [place] [address] Jan, [facility] [address] [id number] [address] [place] [address], [place] [address] Jan, [facility] [address] [id number] [address] [place] [address], [place] [address] Jan, [facility] [address] [id number] [address] [place] [address], [place] [address] Jan, [facility] [address] [id number] [address] [place] [address], [place] [address] Jan, [facility] [address] [id number] [address] [place] [address], [place] [address] Jan, [facility] [address] [id number] [address] [place] [address], [place] [address] Jan, [facility] [address] [id number] [address] [place] [address], [place] [address] 27 Dec, 2013 [facility] [address] [id number] [address] [place] [address], [place] [address] Dec, [facility] [address] [id number] [address] [place] [address], [place] [address] Dec, [facility] [address] [id number] [address] [place] [address], [place] [address] 2013 [facility] [address] [id number] [address] [place] [address] [address] 2013 [facility] [address] [id number] [address] [place] [address], [place] [address] 13 Dec, 2013 [facility] [address] [id number] [address] [place] [address], [place] [address] Dec, [facility] [address] [id number] [address] [place] [address], [place] [address] Dec, [facility] [address] [id number] [address] [place] [address], [place] [address] Nov, [facility] [address] [id number] [address] [place] [address], [place] [address] Nov, [facility] [address] [id number] [address] [place] [address], [place] [address] Nov, [facility] [address] [id number] [address] [place] [address], [place] [address] Nov, [facility] [address] [id number] [address] [place] [address], [place] [address] Nov, [facility] [address] [id number] [address] [place] [address], [place] [address] Nov, [facility] [address] [id number] [address] [place] [address], [place] [address] Nov, [facility] [address] [id number] [address] [place] [address], [place] [address] Nov, [facility] [address] [id number] [address] [place] [address], [place] [address] Nov, [facility] [address] [id number] [address] [place] [address], [place] [address] Nov, [facility] [address] [id number] [address] [place] [address], [place] [address] Nov, [facility] [address] [id number] [address] [place] [address], [place] [address] Nov, [facility] [address] [id number] [address] [place] [address], [place] [address] Nov, [facility] [address] [id number] [address] [place] [address], [place] [address] Oct, [facility] [address] [id number] [address] [place] [address], [place] [address] 30 Oct, 2013 [facility] [address] [id number] [address] [place] [address], [place] [address] Oct, [facility] [address] [id number] [address] [place] [address], [place] [address] Oct, [facility] [address] [id number] [address] [place] [address], [place] [address] Oct, [facility] [address] [id number] [address] [place] [address], [place] [address] Oct, [facility] [address] [id number] [address] [place] [address], [place] [address] Oct, [facility] [address] [id number] [address] [place] [address], [place] [address] 18 Oct, 2013 [facility] [address] [id number] [address] [place] [address], [place] [address] Oct, [facility] [address] [id number] [address] [place] [address], [place] [address] 17 Oct, 2013 [facility] [address] [id number] [address] [place] [address], [place] [address] Oct, [facility] [address] [id number] [address] [place] [address], [place] [address] Oct, [facility] [address] [id number] [address] [place] [address], [place] [address] 02 Oct, 2013 [facility] [address] [id number] [address] [place] [address], [place] [address] 02 Oct, 2013 [facility] [address] [id number] [address] [place] [address], [place] [address] 14 Sep, 2013 [facility] [address] [id number] [address] [place] [address], [place] [address] 14 Sep, 2013 [facility] [address] [id number] [address] [place] [address], [place] [address] Sep, [facility] [address] [id number] [address] [place] [address], [place] [address] Sep, [facility] [address] [id number] [address] [place] [address], [place] [address] Sep, [facility] [address] [id number] [address] [place] [address], [place] [address] Sep, [facility] [address] [id number] [address] [place] [address], [place] [address] Sep, [facility] [address] [id number] [address] [place] [address], [place] [address] Sep, [facility] [address] [id number] [address] [place] [address], [place] [address] Sep, [facility] [address] [id number] [address] [place] [address], [place] [address] Sep, [facility] [address] [id number] [address] [place] [id number] Aug, [facility] [address] [id number] [address] [place] [address], [place] [address] Aug, [facility] [address] [id number] [address] [place] [id number] Aug, [facility] [address] [id number] [address] [place] [id number] Aug, [facility] [address] [id number] [address] [place] [id number] Aug, [facility] [address] [id number] [address] [place] [id number] Aug, [facility] [address] [id number] [address] [place] [id number] Aug, [facility] [address] [id number] [address] [place] [id number] Aug, [facility] [address] [id number] [address] [place] [address], [place] [address] 22 Aug, 2012 [facility] [address] [id number] [address] [place] [address], [place] [address] 22 Aug, 2012 [facility] [address] [id number] [address] [place] [address], [place] [address] 18 Aug, 2012 [facility] [address] [id number] [address] [place] [address], [place] [phone] 18 Aug, 2012 [facility] [address] [id number] [address] [place] [address], [place] [address] 18 Aug, 2012 [facility] [address] [id number] [address] [place] [address], [place] [address] 18 Aug, 2012 [facility] [address] [id number] [address] [place] [address], [place] [address] 17 Aug, 2012 [facility] [address] [id number] [address] [place] [address], [place] [id number] 14 Aug, 2013 [facility] [address] [id number] [address] [place] [address], [place] [address] 14 Aug, 2013 [facility] [address] [id number] [address] [place] [address], [place] [address] 01 Aug, 2013 [facility] [address] [id number] [address] [place] [address], [place] [address] 20 Jul, 2012 [facility] [address] [id number] [address] [place] [address], [place] [address] 19 Jul, 2012 [facility] [address] [id number] [address] [place] [address], [place] [address] 18 Jul, 2012 [facility] [address] [id number] [address] [place] [address], [place] [address] 11 Jul, 2012 [facility] [address] [id number] [address] [place] [address], [place] [address] 11 Jul, 2012 [facility] [address] [id number] [address] [place] [address], [place] [address] 28 Jun, 2013 [facility] [address] [id number] [facility] [place] [address] Jun, [facility] [address] [id number] [facility] [place] [address] Jun, [facility] [address] [id number] [facility] [place] [address] Jun, [facility] [address] [id number] [address] [place] [address], [place] [address] Jun, [facility] [address] [id number] [address] [place] [address], [place] [address] Jun, [facility] [address] [id number] [address] [place] [address], [place] [address] Jun, [facility] [address] [id number] [address] [place] [address], [place] [address] Jun, [facility] [address] [id number] [address] [place] [address], [place] [address] Jun, [facility] [address] [id number] [address] [place] [address], [place] [address] Jun, [facility] [address] [id number] [address] [place] [address], [place] [address] May, [facility] [address] [id number] [address] [place] [address], [place] [address] May, [facility] [address] [id number] [address] [place] [address], [place] [address] May, [facility] [address] [id number] [address] [place] [address], [place] [address] May, [facility] [address] [id number] [address] [place] [address], [place] [address] May, [facility] [address] [id number] [address] [place] [address], [place] [address] May, [facility] [address] [id number] [address] [place] [address], [place] [address] May, [facility] [address] [id number] [address] [place] [address], [place] [address] May, [facility] [address] [id number] [address] [place] [address], [place] [address] May, [facility] [address] [id number] [address] [place] [address], [place] [address] Apr, [facility] [address] [id number] [address] [place] [address], [place] [address] Apr, [facility] [address] [id number] [address] [place] [address], [place] [address] Apr, [facility] [address] [id number] [address] [place] [address], [place] [address] Apr, [facility] [address] [id number] [address] [place] [address], [place] [address] Apr, [facility] [address] [id number] [address] [place] [address], [place] [address] Apr, [facility] [address] [id number] [address] [place] [address], [place] [address] Apr, [facility] [address] [id number] [address] [place] [address], [place] [address] March, [facility] [address] [id number] [address] [place] [address], [place] [address] Feb, [facility] [address] [id number] [address] [place] [address], [place] [address] Feb, [facility] [address] [id number] [address] [place] [address], [place] [address] Feb, [facility] [address] [id number] [address] [place] [address], [place] [address] Jan, [facility] [address] [id number] [address] [place] [address], [place] [address] Jan, [facility] [address] [id number] [address] [place] [address], [place] [address] 19 Jan, 2013 [facility] [address] [id number] [address] [place] [address], [place] [address] 14 Jan, 2013 [facility] [address] [id number] [address] [place] [address], [place] [address] 12 Jan, 2013 [facility] [address] [id number] [address] [place] [address], [place] [address] 08 Jan, 2013 [facility] [address] [id number] [address] [place] [address], [place] [address] 07 Jan, 2013 [facility] [address] [id number] [address] [place] [address], [place] [address] 04 Jan, 2013 [facility] [address] [id number] [address] [place] [address], [place] [address] 28 Dec, 2012 [facility] [address] [id number] [address] [place] [address], [place] [address] 25 Dec, 2012 [facility] [address] [id number] [address] [place] [address], [place] [address] 13 Dec, 2012 [facility] [address] [id number] [address] [place] [address], [place] [address] 11 Dec, 2012 [facility] [address] [id number] [address] [place] [address], [place] [address] 07 Dec, 2012 [facility] [address] [id number] [address] [place] [address], [place] [address] 06 Dec, 2012 [facility] [address] [id number] [address] [place] [address], [place] [address] 05 Dec, 2012 [facility] [address] [id number] [address] [place] [address], [place] [address] 31 Nov, 2012 [facility] [address] [id number] [address] [place] [address], [place] [address] 24 Nov, 2012 [facility] [address] [id number] [address] [place] [address], [place] [address] 18 Nov, 2012 [facility] [address] [id number] [address] [place] [address], [place] [address] 15 Nov, 2012 [facility] [address] [id number] [address] [place] [address], [place] [address] 10 Nov, 2012 [facility] [address] [id number] [address] [place] [address], [place] [address] Nov, [facility] [address] [id number] [address] [place] [address], [place] [address] Nov, [facility] [address] [id number] [address] [place] [address], [place] [address] Oct, [facility] [address] [id number] [address] [place] [address], [place] [address] Oct, [facility] [address] [id number] [address] [place] [address], [place] [address] Oct, [facility] [address] [id number] [address] [place] [address], [place] [address] Oct, [facility] [address] [id number] [address] [place] [address], [place] [address] Oct, [facility] [address] [id number] [address] [place] [address], [place] [address] 17 Oct, 2012 [facility] [address] [id number] [address] [place] [address], [place] [address] 07 Oct, 2012 [facility] [address] [id number] [address] [place] [address], [place] [address] 07 Oct, 2012 [facility] [address] [id number] [address] [place] [address], [place] [address] 05 Oct, 2012 [facility] [address] [id number] [address] [place] [address], [place] [address] 05 Oct, 2012 [facility] [address] [id number] [address] [place] [address], [place] [address] 04 Oct, 2012 [facility] [address] [id number] [address] [place] [address], [place] [address] Oct, [facility] [address] [id number] [address] [place] [address], [place] [address] Sep, [facility] [address] [id number] [address] [place] [address], [place] [address] Sep, [facility] [address] [id number] [address] [place] [address], [place] [address] Sep, [facility] [address] [id number] [address] [place] [address], [place] [address] Sep, [facility] [address] [id number] [address] [place] [address], [place] [address] Sep, [facility] [address] [id number] [address] [place] [address], [place] [address] Sep, [facility] [address] [id number] [address] [place] [address], [place] [address] Sep, [facility] [address] [id number] [address] [place] [address], [place] [address] Sep, [facility] [address] [id number] [address] [place] [address], [place] [address] Sep, [facility] [address] [id number] [address] [place] [address], [place] [address] Sep, [facility] [address] [id number] [address] [place] [address], [place] [address] Sep, [facility] [address] [id number] [address] [place] [address], [place] [address] Aug, [facility] [address] [id number] [address] [place] [address], [place] [address] Aug, [facility] [address] [id number] [address] [place] [address], [place] [address] Aug, [facility] [address] [id number] [address] [place] [address], [place] [address] Aug, [facility] [address] [id number] [address] [place] [address], [place] [address] Aug, [facility] [address] [id number] [address] [place] [address], [place] [address] Aug, [facility] [address] [id number] [address] [place] [address], [place] [address] Aug, [facility] [address] [id number] [address] [place] [address], [place] [address] Aug, [facility] [address] [id number] [address] [place] [address], [place] [address] Aug, [facility] [address] [id number] [address] [place] [address], [place] [address] Aug, [facility] [address] [id number] [address] [place] [address], [place] [address] Jul, [facility] [address] [id number] [address] [place] [address], [place] [address] 20 Jul, 2012 [facility] [address] [id number] [address] [place] [address], [place] [address] Jul, [facility] [address] [id number] [address] [place] [address], [place] [address] 06 Jul, 2012 [facility] [address] [id number] [address] [place] [address], [place] [address] 30 Jun, 2012 [facility] [address] [id number] [address] [place] [address], [place] [address] Jun, [facility] [address] [id number] [address] [place] [address], [place] [address] Jun, [facility] [address] [id number] [address] [place] [address], [place] [address] Jun, [facility] [address] [id number] [address] [place] [address], [place] [address] Jun, [facility] [address] [id number] [address] [place] [address], [place] [address] Jun, [facility] [address] [id number] [address] [place] [address], [place] [address] Jun, [facility] [address] [id number] [address] [place] [address], [place] [address] May, [facility] [address] [id number] [address] [place] [address], [place] [address] May, [facility] [address] [id number] [address] [place] [address], [place] [address] May, [facility] [address] [id number] [address] [place] [address], [place] [address] May, [facility] [address] [id number] [address] [place] [address], [place] [address] May, [facility] [address] [id number] [address] [place] [address], [place] [address] Apr, [facility] [address] [id number] [address] [place] [address], [place] [address] Apr, [facility] [address] [id number] [address] [place] [address], [place] [address] Apr, [facility] [address] [id number] [address] [place] [address], [place] [address] Apr, [facility] [address] [id number] [address] [place] [address], [place] [address] Apr, [facility] [address] [id number] [address] [place] [address], [place] [address] March, [facility] [address] [id number] [address] [place] [address], [place] [address] March, [facility] [address] [id number] [address] [place] [address], [place] [address] March, [facility] [address] [id number] [address] [place] [address], [place] [address] March, [facility] [address] [id number] [address] [place] [address], [place] [address] March, [facility] [address] [id number] [address] [place] [address], [place] [address] March, [facility] [address] [id number] [address] [place] [address], [place] [address] March, [facility] [address] [id number] [address] [place] [address], [place] [address] March, [facility] [address] [id number] [address] [place] [address], [place] [address] March, [facility] [address] [id number] [address] [place] [address], [place] [address] March, [facility] [address] [id number] [address] [place] [address], [place] [address] Feb, [facility] [address] [id number] [address] [place] [address], [place] [address] Feb, [facility] [address] [id number] [address] [place] [address], [place] [address] Feb, [facility] [address] [id number] [address] [place] [address], [place] [address] Feb, [facility] [address] [id number] [address] [place] [address], [place] [address] Feb, [facility] [address] [id number] [address] [place] [address], [place] [address] Feb, [facility] [address] [id number] [address] [place] [address], [place] [address] Feb, [facility] [address] [id number] [address] [place] [address], [place] [address] Feb, [facility] [address] [id number] [address] [place] [address], [place] [address] Feb, [facility] [address] [id number] [address] [place] [address], [place] [address] Jan, [facility] [address] [id number] [facility] [place] [address] 07 Jan, 2012 [facility] [address] [id number] [address] [place] [address], [place] [address] 05 Jan, 2012 [facility] [address] [id number] [address] [place] [address], [place] [address] 02 Jan, 2012 [facility] [address] [id number] [address] [place] [address], [place] [address] Dec, [facility] [address] [id number] [address] [place] [address], [place] [address] Dec, [facility] [address] [id number] [address] [place] [address], [place] [address] Nov, [facility] [address] [id number] [address] [place] [address], [place] [address] Nov, [facility] [address] [id number] [address] [place] [address], [place] [address] Nov, [facility] [address] [id number] [address] [place] [address], [place] [address] Nov, [facility] [address] [id number] [address] [place] [address], [place] [address] Nov, [facility] [address] [id number] [address] [place] [address], [place] [address] Oct, [facility] [address] [id number] [address] [place] [address], [place] [address] Oct, [facility] [address] [id number] [address] [place] [address], [place] [id number] Oct, [facility] [address] [id number] [address] [place] [address], [place] [id number] Oct, [facility] [address] [id number] [address] [place] [address], [place] [id number] Oct, [facility] [address] [id number] [address] [place] [id number] Oct, [facility] [address] [facility] [id number] [address] [place] [phone] Oct, [facility] [address] [facility] [id number] [address] [place] [id number] Oct, [facility] [address] [facility] [id number] [address] [place] [id number] Sep, IMMUNIZATIONS No Known Immunizations SOCIAL HISTORY [...] fever, discharged 11/27/2017 11/26/2017 Hospitalization History [facility]- Went Unrepsonsive, Hit head 2017 Hospitalization History [facility]- Back Pain 05/05/201 8
--- OUTSIDE RECORDS SUMMARY | 2020-06-18 15:22 | XMS REPORT ---
Author Author Sanjuanita JOHNSON [facility] Address [address] [place] [address] Care Team Providers Care Information Security Consultant Name Role Phone ELIZABETH SHARIF Unavailable PROBLEMS Type Condition ICD9-CM Code ENC78-MB Code Onset Dates Condition S tatus SNOMED Code Problem Coronary artery disease I25.10 Active 96788610 Problem Hypertension I10 Active 1454802 3 Problem Other chronic pain G89.29 Active 8 9762473 Problem Hyperlipidemia E78.5 Active 35747 004 Problem Type 2 diabetes mellitus wit hout complication, without long-term current use of insulin E11.9 Active 562349628 Problem Low back pain M54.5 Active 356826 009 Problem Pharyngeal dysphagia R13.13 Active 06352293602703 Problem Anxiety F41.9 Active 19601551 Problem Peripheral vascular disease I73.9 Ac tive 357645371 Problem Suprapubic catheter Z93.59 Active 381696530 Problem Reactive depression F32.9 Active 30776243 Problem Neurogenic bladder N31.9 Active 3 37583288 Problem Ventral hernia without obstruction or gangrene K43 .9 Active 120075770 Problem Insomnia G47.00 Active 558356166 Problem Paroxysmal atrial fibrillation I48.0 Active 800106237 Problem Postmenopausal atrophic vaginitis N95.2 Active 27864092 Problem Encounter for suprapubic catheter care Z43.5 Active 148248432 ALLERGIES No Information ENCOUNTERS Encounter Location Date Diagnosis Via [facility] [address] [place] [id number] Jun, [facility] [address] [facility] [id number] [address] [place] [id number] May, [facility] [address] [facility] [id number] [address] [place] [id number] Apr, Via [facility] [address] [place] [id number] Apr, Strain of right shoulder, subsequent enc ounter S46.911D [facility] [address] [id number] [address] [place] [id number] 14 Apr, 2019 Strain of right shoulder, scherer bsequent encounter S46.911D and Anxiety F41.9 Via [facility] [address] [place] [id number] 13 Apr, 2019 Type 2 diabetes mellitus without complic ation, without long-term current use of insulin E11.9 and Neurogenic bladder N31.9 [facility] [address] [place] [id number] 11 Apr, 2019 Strain of right shoulder, subsequent enc ounter S46.911D ; History of GI bleed Z87.19 ; Neurogenic bladder N31.9 and Reactive depression F32.9 [facility] [address] [id number] [address] [place] [id number] 10 Apr, 2019 Acute pain of left shoulder M25.512 [facility] [address] [id number] [address] [place] [id number] 07 Apr, 2019 [facility] [address] [id number] [address] [place] [id number] 06 Apr, 2019 Anxiety F41.9 and Other project admin 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 [facility] [address] [place] [id number] March, Gastrointestinal hemorrhage associated w ith acute gastritis K29.01 [facility] [address] [id number] [address] [place] [id number] March, Via [facility] [address] [place] [id number] March, Bronchitis J40 [facility] [address] [id number] [address] [place] [id number] March, Cough R05 [facility] [address] [id number] [address] [place] [id number] March, Other chronic pain G89.29 [facility] [address] [id number] [address] [place] [id number] March, Anxiety F41.9 [facility] [address] [id number] [address] [place] [id number] March, [facility] [address] [id number] [address] [place] [id number] Feb, Other chronic pain G89.29 [facility] [address] [id number] [address] [place] [id number] Feb, Anxiety F41.9 [facility] [address] [id number] [address] [place] [id number] Feb, Other chronic pain G89.29 [facility] [employer] [address] [place] [id number] Feb, Neurogenic bladder N31.9 and Suprapubic catheter Z93.59 [facility] [address] [id number] [address] [place] [id number] Jan, Anxiety F41.9 [facility] [address] [id number] [address] [place] [id number] Dec, Anxiety F41.9 [facility] [address] [id number] [address] [place] [id number] Dec, Other chronic pain G89.29 an d Anxiety F41.9 [facility] [address] [id number] [address] [place] [id number] Dec, [facility] [employer] [address] [place] [id number] Dec, Neurogenic bladder N31.9 and Suprapubic catheter Z93.59 [facility] [address] [id number] [address] [place] [id number] Nov, Other chronic pain G89.29 an d Anxiety F41.9 [facility] [address] [id number] [address] [place] [id number] Nov, [facility] [employer] [address] [place] [id number] Nov, Suprapubic catheter Z93.59 [facility] [address] [id number] [address] [place] [id number] Oct, Other chronic pain G89.29 an d Anxiety F41.9 [facility] [address] [id number] [address] [place] [id number] Oct, [facility] [address] [id number] [address] [place] [id number] Oct, Suprapubic catheter Z93.59 [facility] [address] [id number] [address] [place] [phone] Oct, [facility] [employer] [address] [place] [id number] Oct, [facility] [address] [id number] [address] [place] [id number] Oct, Anxiety F41.9 [facility] [address] [id number] [address] [place] [id number] Oct, Anxiety F41.9 [facility] [employer] [address] [place] [id number] Oct, Other chronic pain G89.29 [facility] [address] [id number] [address] [place] [id number] Sep, Other chronic pain G89.29 [facility] [employer] [address] [place] [id number] Sep, Suprapubic catheter Z93.59 and Cervicalg ia M54.2 [facility] [address] [id number] [address] [place] [id number] Sep, [facility] [address] [id number] [address] [place] [id number] Sep, [facility] [address] [id number] [address] [place] [id number] Sep, [facility] [employer] [address] [place] [id number] Aug, Cystitis N30.90 [facility] [address] [id number] [address] [place] [id number] Aug, [facility] [address] [id number] [address] [place] [id number] Aug, Other chronic pain G89.29 [facility] [address] [id number] [address] [place] [id number] Aug, Via [facility] [email or web address] [address] [place] [id number] Aug, Encounter for suprapubic catheter care Z 43.5 [facility] [address] [id number] [address] [place] [phone] Jul, Via [facility] [email or web address] [address] [place] [id number] Jul, [facility] [address] [id number] [address] [place] [id number] Jul, Other chronic pain G89.29 [facility] [address] [id number] [address] [place] [id number] Jul, [facility] [address] [id number] [address] [place] [id number] Jul, Via [facility] [email or web address] [address] [place] [id number] Jun, Postmenopausal atrophic vaginitis N95.2 [facility] [address] [id number] [address] [place] [id number] Jun, Other chronic pain G89.29 [facility] [address] [id number] [address] [place] [id number] Jun, Via [facility] [email or web address] [address] [place] [id number] May, Anxiety F41.9 ; Type 2 diabetes mellitus without complication, without long-term current use of insulin E11.9 ; Hypertension I10 ; Low back pain M54.5 ; Paroxysmal atrial fibrillation I48.0 and 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 [facility] [address] [id number] [address] [place] [id number] May, Other chronic pain G89.29 [facility] [facility] [address] [place] [id number] May, Low back pain M54.5 [facility] [address] [id number] [address] [place] [id number] May, [facility] [address] [id number] [address] [place] [id number] Apr, Other chronic pain G89.29 [facility] [address] [id number] [address] [place] [id number] Apr, [facility] [address] [id number] [address] [place] [id number] Apr, [facility] [employer] [address] [place] [id number] Apr, Closed compression fracture of L3 lumbar vertebra with routine healing, subsequent encounter S32.030D [facility] [address] [place] [id number] Apr, Low back pain M54.5 Via [facility] [address] [place] [id number] Apr, Coccydynia M53.3 [facility] [address] [id number] [address] [place] [id number] March, [facility] [address] [id number] [address] [place] [id number] March, Other chronic pain G89.29 [facility] [address] [id number] [address] [place] [id number] March, [facility] [address] [id number] [address] [place] [id number] March, [facility] [address] [id number] [address] [place] [id number] Feb, [facility] [address] [id number] [address] [place] [id number] Feb, Other chronic pain G89.29 Via [facility] [address] [place] [id number] Feb, Other chronic pain G89.29 and Anxiety F4 1.9 [facility] [address] [id number] [address] [place] [id number] Feb, [facility] [address] [id number] [address] [place] [id number] Jan, [facility] [address] [id number] [address] [place] [id number] Jan, [facility] [address] [id number] [address] [place] [id number] Jan, [facility] [address] [facility] [id number] [address] [place] [id number] Jan, [facility] [address] [id number] [address] [place] [id number] Dec, Via [employer] [address] [place] [id number] Dec, Peripheral vascular disease I73.9 ; 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 ; Other chronic pain G89.29 ; Anxiety F41.9 ; Reactive depression F32.9 ; Insomnia G47.00 and Type 2 diabetes mellitus without complication, without long-term current use of insulin E11.9 [facility] [address] [id number] [address] Nov, [facility] [address] [id number] [place] [id number] Nov, Anxiety F41.9 [facility] [address] [facility] [id number] [address] [place] [phone] Nov, [facility] [address] [id number] [place] [id number] Nov, Anxiety F41.9 [facility] [employer] [address] [place] [id number] Nov, Status post surgery Z98.890 ; Confused R 41.0 ; Anxiety F41.9 and Other chronic pain G89.29 [facility] [address] [id number] [place] [id number] Nov, Other chronic pain G89.29 [facility] [address] [id number] [address] [place] [id number] Oct, [facility] [address] [id number] [place] [id number] Oct, Other chronic pain G89.29 [facility] [address] [id number] [address] [place] [id number] Oct, Anxiety F41.9 [facility] [address] [id number] [place] [id number] Sep, Other chronic pain G89.29 [facility] [address] [id number] [place] [id number] Sep, Via [employer] [address] [place] [id number] Aug, Dysuria R30.0 and Anxiety F41.9 [facility] [address] [id number] [address] [place] [id number] Aug, [facility] [address] [id number] [place] [id number] Aug, Other chronic pain G89.29 [facility] [address] [id number] [address] [place] [id number] Jul, Other chronic pain G89.29 [facility] [address] [id number] [place] [id number] Jun, [facility] [address] [id number] [place] [id number] Jun, Other chronic pain G89.29 [facility] [address] [id number] [address] [place] [id number] Jun, [facility] [address] [id number] [address] [place] [id number] May, Other chronic pain G89.29 [facility] [address] [id number] [address] [place] [id number] Apr, Other chronic pain G89.29 Via [facility] [address] [place] [id number] Apr, Reactive depression F32.9 and Pharyngeal dysphagia R13.13 [facility] [address] [id number] [address] [place] [address] Apr, Urinary tract infection with out hematuria, site unspecified N39.0 [facility] [address] [id number] [address] [place] [id number] March, Other chronic pain G89.29 [facility] [address] [id number] [address] [place] [address] Feb, Other chronic pain G89.29 [facility] [address] [id number] [address] [place] [id number] Feb, [facility] [id number] [place] [id number] Feb, Via [facility] [address] [place] [id number] Feb, Dysuria R30.0 and Ventral hernia without obstruction or gangrene K43.9 [facility] [address] [id number] [address] [place] [phone] Jan, Other chronic pain G89.29 [facility] [address] [id number] [place] [id number] Dec, Other chronic pain G89.29 [facility] [address] [id number] [address] [place] [address] Nov, Other chronic pain G89.29 [facility] [address] [place] [id number] Nov, Lymphadenitis I88.9 [facility] [address] [id number] [address] [place] [id number] Nov, Other chronic pain G89.29 [facility] [address] [id number] [address] [place] [id number] Nov, [facility] [address] [id number] [place] [id number] Nov, Other chronic pain G89.29 Via [facility] [address] [place] [id number] Oct, Low back pain M54.5 ; Hypertension I10 a nd Type 2 diabetes mellitus without complication, without long-term current use of insulin E11.9 [facility] [address] [id number] [address] [place] [id number] Oct, [facility] [address] [id number] [address] [place] [id number] Oct, [facility] [address] [id number] [address] [place] [phone] Oct, [facility] [address] [id number] [address] [place] [id number] Oct, [facility] [address] [id number] [address] [place] [phone] Sep, [facility] [address] [id number] [address] [place] [phone] Sep, [facility] [address] [id number] [address] [place] [id number] Aug, Other chronic pain G89.29 [facility] [address] [id number] [address] [place] [id number] Jul, [facility] [address] [id number] [address] [place] [id number] Jul, [facility] [address] [id number] [address] [place] [id number] Jul, [facility] [address] [id number] [address] [place] [id number] Jun, [facility] [address] [id number] [address] [place] [id number] Jun, Via [facility] [address] [place] [id number] Jun, Low back pain M54.5 ; Other chronic pain G89.29 and Coronary artery disease I25.10 [facility] [address] [id number] [address] [place] [id number] Jun, [facility] [address] [id number] [address] [place] [id number] May, [facility] [address] [id number] [address] [place] [id number] May, [facility] [address] [id number] [address] [place] [id number] May, Other chronic pain G89.29 [facility] [address] [id number] [address] [place] [id number] May, [facility] [address] [id number] [address] [place] [id number] Apr, [facility] [address] [id number] [address] [place] [id number] 17 Apr, 2016 Acute cystitis without hemat uria N30.00 [facility] [address] [id number] [address] [place] [address] Apr, Acute cystitis without hemat uria N30.00 ; Coronary artery disease I25.10 ; Low back pain M54.5 and Other chronic pain G89.29 [facility] [address] [id number] [address] [place] [address] 13 Apr, 2016 Other chronic pain G89.29 [facility] [address] [id number] [address] [place] [id number] March, Other chronic pain G89.29 [facility] [address] [id number] [address] [place] [id number] 18 Feb, 2016 [facility] [address] [id number] [address] [place] [address] Feb, Arthritis M19.90 [facility] [address] [id number] [address] [place] [phone] Feb, [facility] [address] [id number] [address] [place] [id number] Jan, [facility] [address] [id number] [address] [place] [id number] Jan, [facility] [address] [id number] [address] [place] [id number] Jan, Other chronic pain G89.29 [facility] [address] [id number] [address] [place] [id number] Jan, Hypertension I10 ; Coronary artery disease I25.10 and Insomnia G47.00 [facility] [address] [id number] [address] [place] [id number] Jan, [facility] [address] [id number] [address] [place] [address] Dec, Right hip pain M25.551 [facility] [address] [id number] [address] [place] [id number] Dec, [facility] [address] [id number] [address] [place] [phone] Dec, [facility] [address] [id number] [address] [place] [phone] Dec, [facility] [address] [id number] [address] [place] [id number] Dec, Other chronic pain G89.29 [facility] [address] [id number] [address] [place] [id number] Dec, [facility] [address] [id number] [address] [place] [id number] Nov, [facility] [address] [facility] [id number] [address] [place] [id number] Nov, Other chronic pain G89.29 [facility] [address] [id number] [address] [place] [address] Nov, Right hip pain M25.551 and C oronary artery disease I25.10 [facility] [address] [id number] [address] [place] [phone] Nov, Other chronic pain G89.29 [facility] [address] [facility] [id number] [address] [place] [phone] Oct, [facility] [address] [facility] [id number] [address] [place] [id number] Oct, [facility] [address] [facility] [id number] [address] [place] [id number] Sep, [facility] [address] [facility] [id number] [address] [place] [id number] Sep, [facility] [address] [facility] [id number] [address] [place] [id number] Aug, [facility] [address] [facility] [id number] [address] [place] [id number] Aug, Hypertension I10 ; Coronary artery disease I25.10 and Arthritis M19.90 [facility] [address] [id number] [address] [place] [id number] Jun, [facility] [address] [facility] [id number] [address] [place] [id number] Jun, Essential hypertension, jayson gn 401.1 ; Other chronic pain 338.29 and Chronic airway obstruction, not elsewhere classified 496 [facility] [address] [id number] [address] [place] [address], [place] [address] Jun, [facility] [address] [id number] [address] [place] [address], [place] [address] Jun, [facility] [address] [id number] [address] [place] [address], [place] [address] Jun, [facility] [address] [id number] [address] [place] [address], [place] [address] May, [facility] [address] [id number] [address] [place] [address], [place] [address] May, [facility] [address] [id number] [address] [place] [address], [place] [address] Apr, [facility] [address] [id number] [address] [place] [address], [place] [address] Apr, [facility] [address] [id number] [address] [place] [address], [place] [address] Apr, [facility] [address] [id number] [address] [place] [address], [place] [address] March, [facility] [address] [id number] [address] [place] [address], [place] [address] March, [facility] [address] [id number] [address] [place] [address], [place] [address] March, [facility] [address] [id number] [address] [place] [address], [place] [address] March, [facility] [address] [id number] [address] [place] [address], [place] [address] March, Sialadenitis 527.2 [facility] [address] [id number] [address] [place] [address], [place] [address] Feb, [facility] [address] [address] [id number] [address] [place] [address], [place] [address] Feb, [facility] [address] [id number] [address] [place] [address], [place] [address] 29 Feb, 2015 [facility] [address] [id number] [address] [place] [address], [place] [address] 14 Feb, 2015 [facility] [address] [id number] [address] [place] [address], [place] [address] 13 Feb, 2015 [facility] [address] [id number] [address] [place] [address], [place] [address] Jan, [facility] [address] [id number] [address] [place] [address], [place] [address] Jan, [facility] [address] [id number] [address] [place] [address], [place] [address] Jan, [facility] [address] [id number] [address] [place] [address], [place] [address] Jan, [facility] [address] [id number] [address] [place] [address], [place] [address] Jan, [facility] [address] [id number] [address] [place] [address], [place] [address] Jan, [facility] [address] [id number] [address] [place] [address], [place] [address] Dec, [facility] [address] [id number] [address] [place] [address], [place] [address] Dec, [facility] [address] [id number] [address] [place] [address], [place] [address] Dec, 2014 [facility] [address] [id number] [address] [place] [address], [place] [address] Dec, 2014 [facility] [address] [id number] [address] [place] [address], [place] [address] Dec, 2014 [facility] [address] [id number] [address] [place] [address], [place] [address] Dec, 2014 [facility] [address] [id number] [address] [place] [address], [place] [address] Nov, [facility] [address] [id number] [address] [place] [address], [place] [address] Nov, [facility] [address] [id number] [address] [place] [address], [place] [address] Nov, [facility] [address] [id number] [address] [place] [address], [place] [address] Nov, [facility] [address] [id number] [address] [place] [address], [place] [address] Nov, [facility] [address] [id number] [address] [place] [address], [place] [address] Nov, [facility] [address] [id number] [address] [place] [address], [place] [address] Nov, [facility] [address] [id number] [address] [place] [address], [place] [address] Nov, [facility] [address] [id number] [address] [place] [address], [place] [address] Nov, [facility] [address] [id number] [address] [place] [address], [place] [address] Nov, [facility] [address] [id number] [address] [place] [address], [place] [address] Nov, [facility] [address] [id number] [address] [place] [address], [place] [address] Nov, [facility] [address] [id number] [address] [place] [address], [place] [address] Nov, [facility] [address] [id number] [address] [place] [address], [place] [address] Nov, [facility] [address] [id number] [address] [place] [address], [place] [address] Oct, [facility] [address] [id number] [address] [place] [address], [place] [address] Oct, [facility] [address] [id number] [address] [place] [address], [place] [address] Oct, [facility] [address] [id number] [address] [place] [address], [place] [address] Oct, [facility] [address] [id number] [address] [place] [address], [place] [address] Oct, [facility] [address] [id number] [address] [place] [address], [place] [address] Oct, [facility] [address] [id number] [address] [place] [address], [place] [address] Oct, [facility] [address] [id number] [address] [place] [address], [place] [address] Oct, [facility] [address] [id number] [address] [place] [address], [place] [address] Oct, [facility] [address] [id number] [address] [place] [address], [place] [address] Sep, [facility] [address] [id number] [address] [place] [address], [place] [address] Sep, [facility] [address] [id number] [address] [place] [address], [place] [address] Sep, [facility] [address] [id number] [address] [place] [address], [place] [address] Sep, [facility] [address] [id number] [address] [place] [address], [place] [address] Sep, [facility] [address] [id number] [address] [place] [address], [place] [address] Sep, [facility] [address] [id number] [address] [place] [address], [place] [address] Sep, [facility] [address] [id number] [address] [place] [address], [place] [address] Sep, [facility] [address] [id number] [address] [place] [address], [place] [address] Sep, [facility] [address] [id number] [address] [place] [address], [place] [address] Sep, [facility] [address] [id number] [address] [place] [address], [place] [address] Sep, [facility] [address] [id number] [address] [place] [address], [place] [address] Sep, [facility] [address] [id number] [address] [place] [address], [place] [address] Aug, [facility] [address] [id number] [address] [place] [address], [place] [address] Aug, [facility] [address] [id number] [address] [place] [address], [place] [address] Aug, [facility] [address] [id number] [address] [place] [address], [place] [address] Aug, [facility] [address] [id number] [address] [place] [address], [place] [address] Aug, [facility] [address] [id number] [address] [place] [address], [place] [address] Aug, [facility] [address] [id number] [address] [place] [address], [place] [address] Aug, [facility] [address] [id number] [address] [place] [address], [place] [address] Aug, [facility] [address] [id number] [address] [place] [address], [place] [address] 30 Jul, 2013 [facility] [address] [id number] [address] [place] [address], [place] [address] 30 Sep, 2013 [facility] [address] [id number] [address] [place] [address], [place] [address] 30 Sep, 2013 [facility] [address] [id number] [address] [place] [address], [place] [address] 30 Jul, 2013 [facility] [address] [id number] [address] [place] [address], [place] [address] 25 Jul2013 [facility] [address] [id number] [facility] [place] [address] Jul, [facility] [address] [id number] [facility] [place] [address] Jul, [facility] [address] [id number] [facility] [place] [address] Jul, [facility] [address] [id number] [address] [place] [address], [place] [address] Jul, [facility] [address] [id number] [address] [place] [address], [place] [address] Jul, [facility] [address] [id number] [address] [place] [address], [place] [address] Jun, [facility] [address] [id number] [address] [place] [address], [place] [address] Jun, [facility] [address] [id number] [address] [place] [address], [place] [address] Jun, [facility] [address] [id number] [address] [place] [address], [place] [address] Jun, [facility] [address] [id number] [address] [place] [address], [place] [address] Jun, [facility] [address] [id number] [address] [place] [address], [place] [address] Jun, [facility] [address] [id number] [address] [place] [address], [place] [address] Jun, [facility] [address] [id number] [address] [place] [address], [place] [address] Jun, [facility] [address] [id number] [address] [place] [address], [place] [address] Jun, [facility] [address] [id number] [address] [place] [address], [place] [address] Jun, [facility] [address] [id number] [address] [place] [address], [place] [address] Jun, [facility] [address] [id number] [facility] [place] [address] Jun, [facility] [address] [id number] [address] [place] [address], [place] [address] Jun, [facility] [address] [id number] [address] [place] [address], [place] [address] Jun, [facility] [address] [id number] [address] [place] [address], [place] [address] Jun, [facility] [address] [id number] [address] [place] [address], [place] [address] Jun, [facility] [address] [id number] [address] [place] [address], [place] [address] Jun, [facility] [address] [id number] [address] [place] [address], [place] [address] Jun, [facility] [address] [id number] [address] [place] [address], [place] [address] Jun, [facility] [address] [id number] [address] [place] [address], [place] [address] Jun, [facility] [address] [id number] [address] [place] [address], [place] [address] Jun, [facility] [address] [id number] [address] [place] [address], [place] [address] Jun, [facility] [address] [id number] [address] [place] [address], [place] [address] May, [facility] [address] [id number] [address] [place] [address], [place] [address] May, [facility] [address] [id number] [address] [place] [address], [place] [address] May, [facility] [address] [id number] [address] [place] [address], [place] [address] May, [facility] [address] [id number] [facility] [place] [address] May, 2013 [facility] [address] [id number] [facility] [place] [address] May, 2013 [facility] [address] [id number] [facility] [place] [address] May, 2013 [facility] [address] [id number] [address] [place] [address], [place] [address] May, 2013 [facility] [address] [id number] [address] [place] [address], [place] [address] May, 2013 [facility] [address] [id number] [address] [place] [address], [place] [address] May, [facility] [address] [id number] [address] [place] [address], [place] [address] May, [facility] [address] [id number] [address] [place] [address], [place] [address] May, [facility] [address] [id number] [address] [place] [address], [place] [address] May, [facility] [address] [id number] [address] [place] [address], [place] [address] Apr, [facility] [address] [id number] [address] [place] [address], [place] [address] Apr, [facility] [address] [id number] [address] [place] [address], [place] [address] Apr, [facility] [address] [id number] [address] [place] [address], [place] [address] Apr, [facility] [address] [id number] [address] [place] [address], [place] [address] Apr, [facility] [address] [id number] [address] [place] [address], [place] [address] Apr, [facility] [address] [id number] [address] [place] [address], [place] [address] Apr, [facility] [address] [id number] [address] [place] [address], [place] [address] Apr, [facility] [address] [id number] [address] [place] [address], [place] [address] Apr, [facility] [address] [id number] [address] [place] [address], [place] [address] March, [facility] [address] [id number] [address] [place] [address], [place] [address] March, [facility] [address] [id number] [address] [place] [address], [place] [address] March, [facility] [address] [id number] [address] [place] [address], [place] [address] March, [facility] [address] [id number] [address] [place] [address], [place] [address] March, [facility] [address] [id number] [address] [place] [address], [place] [address] March, [facility] [address] [id number] [address] [place] [address], [place] [address] March, [facility] [address] [id number] [address] [place] [address], [place] [address] March, [facility] [address] [id number] [address] [place] [address], [place] [address] March, [facility] [address] [id number] [address] [place] [address], [place] [address] March, [facility] [address] [id number] [address] [place] [address], [place] [address] March, [facility] [address] [id number] [address] [place] [address], [place] [address] March, [facility] [address] [id number] [address] [place] [address], [place] [address] March, [facility] [address] [id number] [address] [place] [address], [place] [address] March, [facility] [address] [id number] [address] [place] [address], [place] [address] March, [facility] [address] [id number] [address] [place] [address], [place] [address] March, [facility] [address] [id number] [address] [place] [address], [place] [address] March, [facility] [address] [id number] [address] [place] [address], [place] [address] March, [facility] [address] [id number] [address] [place] [address], [place] [address] March, [facility] [address] [id number] [address] [place] [address], [place] [address] March, [facility] [address] [id number] [address] [place] [address], [place] [address] Feb, [facility] [address] [id number] [address] [place] [address], [place] [address] Feb, [facility] [address] [id number] [address] [place] [address], [place] [address] Feb, [facility] [address] [id number] [address] [place] [address], [place] [address] Feb, [facility] [address] [id number] [address] [place] [address], [place] [address] Feb, [facility] [address] [id number] [address] [place] [address], [place] [address] Feb, [facility] [address] [id number] [address] [place] [address], [place] [address] Feb, [facility] [address] [id number] [address] [place] [address], [place] [address] Feb, [facility] [address] [id number] [address] [place] [address], [place] [address] Jan, [facility] [address] [id number] [address] [place] [address], [place] [address] Jan, [facility] [address] [id number] [facility] [place] [address] Jan, [facility] [address] [id number] [facility] [place] [address] Jan, [facility] [address] [id number] [address] [place] [address], [place] [address] Jan, [facility] [address] [id number] [address] [place] [address], [place] [address] Jan, [facility] [address] [id number] [address] [place] [address], [place] [address] Jan, [facility] [address] [id number] [address] [place] [address], [place] [address] Jan, [facility] [address] [id number] [address] [place] [address], [place] [address] Jan, [facility] [address] [id number] [address] [place] [address], [place] [address] Jan, [facility] [address] [id number] [address] [place] [address], [place] [address] 27 Dec, 2013 [facility] [address] [id number] [address] [place] [address], [place] [address] Dec, [facility] [address] [id number] [address] [place] [address], [place] [address] Dec, [facility] [address] [id number] [address] [place] [address], [place] [address] 2013 [facility] [address] [id number] [address] [place] [address] [address] 2013 [facility] [address] [id number] [address] [place] [address], [place] [address] 13 Dec, 2013 [facility] [address] [id number] [address] [place] [address], [place] [address] Dec, [facility] [address] [id number] [address] [place] [address], [place] [address] Dec, [facility] [address] [id number] [address] [place] [address], [place] [address] Nov, [facility] [address] [id number] [address] [place] [address], [place] [address] Nov, [facility] [address] [id number] [address] [place] [address], [place] [address] Nov, [facility] [address] [id number] [address] [place] [address], [place] [address] Nov, [facility] [address] [id number] [address] [place] [address], [place] [address] Nov, [facility] [address] [id number] [address] [place] [address], [place] [address] Nov, [facility] [address] [id number] [address] [place] [address], [place] [address] Nov, [facility] [address] [id number] [address] [place] [address], [place] [address] Nov, [facility] [address] [id number] [address] [place] [address], [place] [address] Nov, [facility] [address] [id number] [address] [place] [address], [place] [address] Nov, [facility] [address] [id number] [address] [place] [address], [place] [address] Nov, [facility] [address] [id number] [address] [place] [address], [place] [address] Nov, [facility] [address] [id number] [address] [place] [address], [place] [address] Nov, [facility] [address] [id number] [address] [place] [address], [place] [address] Oct, [facility] [address] [id number] [address] [place] [address], [place] [address] 30 Oct, 2013 [facility] [address] [id number] [address] [place] [address], [place] [address] Oct, [facility] [address] [id number] [address] [place] [address], [place] [address] Oct, [facility] [address] [id number] [address] [place] [address], [place] [address] Oct, [facility] [address] [id number] [address] [place] [address], [place] [address] Oct, [facility] [address] [id number] [address] [place] [address], [place] [address] Oct, [facility] [address] [id number] [address] [place] [address], [place] [address] 18 Oct, 2013 [facility] [address] [id number] [address] [place] [address], [place] [address] Oct, [facility] [address] [id number] [address] [place] [address], [place] [address] 17 Oct, 2013 [facility] [address] [id number] [address] [place] [address], [place] [address] Oct, [facility] [address] [id number] [address] [place] [address], [place] [address] Oct, [facility] [address] [id number] [address] [place] [address], [place] [address] 02 Oct, 2013 [facility] [address] [id number] [address] [place] [address], [place] [address] 02 Oct, 2013 [facility] [address] [id number] [address] [place] [address], [place] [address] 14 Sep, 2013 [facility] [address] [id number] [address] [place] [address], [place] [address] 14 Sep, 2013 [facility] [address] [id number] [address] [place] [address], [place] [address] Sep, [facility] [address] [id number] [address] [place] [address], [place] [address] Sep, [facility] [address] [id number] [address] [place] [address], [place] [address] Sep, [facility] [address] [id number] [address] [place] [address], [place] [address] Sep, [facility] [address] [id number] [address] [place] [address], [place] [address] Sep, [facility] [address] [id number] [address] [place] [address], [place] [address] Sep, [facility] [address] [id number] [address] [place] [address], [place] [address] Sep, [facility] [address] [id number] [address] [place] [address], [place] [address] Sep, [facility] [address] [id number] [address] [place] [address] Aug, [facility] [address] [id number] [address] [place] [address], [place] [address] Aug, [facility] [address] [id number] [address] [place] [address] Aug, [facility] [address] [id number] [address] [place] [address] Aug, [facility] [address] [id number] [address] [place] [address] Aug, [facility] [address] [id number] [address] [place] [address] Aug, [facility] [address] [id number] [address] [place] [address] Aug, [facility] [address] [id number] [address] [place] [address] Aug, [facility] [address] [id number] [address] [place] [address], [place] [address] 22 Aug, 2012 [facility] [address] [id number] [address] [place] [address], [place] [address] 22 Aug, 2012 [facility] [address] [id number] [address] [place] [address], [place] [address] 18 Aug, 2012 [facility] [address] [id number] [address] [place] [address], [place] [address] 18 Aug, 2012 [facility] [address] [id number] [address] [place] [address], [place] [address] 18 Aug, 2012 [facility] [address] [id number] [address] [place] [address], [place] [address] 18 Aug, 2012 [facility] [address] [id number] [address] [place] [address], [place] [address] 17 Aug, 2012 [facility] [address] [id number] [address] [place] [address], [place] [address] 14 Aug, 2013 [facility] [address] [id number] [address] [place] [address], [place] [address] 14 Aug, 2013 [facility] [address] [id number] [address] [place] [address], [place] [address] 01 Aug, 2013 [facility] [address] [id number] [address] [place] [address], [place] [address] 20 Jul, 2012 [facility] [address] [id number] [address] [place] [address], [place] [address] 19 Jul, 2012 [facility] [address] [id number] [address] [place] [address], [place] [address] 18 Jul, 2012 [facility] [address] [id number] [address] [place] [address], [place] [address] 11 Jul, 2012 [facility] [address] [id number] [address] [place] [address], [place] [address] 11 Jul, 2012 [facility] [address] [id number] [address] [place] [address], [place] [address] 28 Jun, 2013 [facility] [address] [id number] [facility] [place] [address] Jun, [facility] [address] [id number] [facility] [place] [address] Jun, [facility] [address] [id number] [facility] [place] [address] Jun, [facility] [address] [id number] [address] [place] [address], [place] [address] Jun, [facility] [address] [id number] [address] [place] [address], [place] [address] Jun, [facility] [address] [id number] [address] [place] [address], [place] [address] Jun, [facility] [address] [id number] [address] [place] [address], [place] [address] Jun, [facility] [address] [id number] [address] [place] [address], [place] [address] Jun, [facility] [address] [id number] [address] [place] [address], [place] [address] Jun, [facility] [address] [id number] [address] [place] [address], [place] [address] May, [facility] [address] [id number] [address] [place] [address], [place] [address] May, [facility] [address] [id number] [address] [place] [address], [place] [address] May, [facility] [address] [id number] [address] [place] [address], [place] [address] May, [facility] [address] [id number] [address] [place] [address], [place] [address] May, [facility] [address] [id number] [address] [place] [address], [place] [address] May, [facility] [address] [id number] [address] [place] [address], [place] [address] May, [facility] [address] [id number] [address] [place] [address], [place] [address] May, [facility] [address] [id number] [address] [place] [address], [place] [address] May, [facility] [address] [id number] [address] [place] [address], [place] [address] Apr, [facility] [address] [id number] [address] [place] [address], [place] [address] Apr, [facility] [address] [id number] [address] [place] [address], [place] [address] Apr, [facility] [address] [id number] [address] [place] [address], [place] [address] Apr, [facility] [address] [id number] [address] [place] [address], [place] [address] Apr, [facility] [address] [id number] [address] [place] [address], [place] [address] Apr, [facility] [address] [id number] [address] [place] [address], [place] [address] Apr, [facility] [address] [id number] [address] [place] [address], [place] [address] March, [facility] [address] [id number] [address] [place] [address], [place] [address] Feb, [facility] [address] [id number] [address] [place] [address], [place] [address] Feb, [facility] [address] [id number] [address] [place] [address], [place] [address] Feb, [facility] [address] [id number] [address] [place] [address], [place] [address] Jan, [facility] [address] [id number] [address] [place] [address], [place] [address] Jan, [facility] [address] [id number] [address] [place] [address], [place] [address] 19 Jan, 2013 [facility] [address] [id number] [address] [place] [address], [place] [address] 14 Jan, 2013 [facility] [address] [id number] [address] [place] [address], [place] [address] 12 Jan, 2013 [facility] [address] [id number] [address] [place] [address], [place] [address] 08 Jan, 2013 [facility] [address] [id number] [address] [place] [address], [place] [address] 07 Jan, 2013 [facility] [address] [id number] [address] [place] [address], [place] [address] 04 Jan, 2013 [facility] [address] [id number] [address] [place] [address], [place] [address] 28 Dec, 2012 [facility] [address] [id number] [address] [place] [address], [place] [address] 25 Dec, 2012 [facility] [address] [id number] [address] [place] [address], [place] [address] 13 Dec, 2012 [facility] [address] [id number] [address] [place] [address], [place] [address] 11 Dec, 2012 [facility] [address] [id number] [address] [place] [address], [place] [address] 07 Dec, 2012 [facility] [address] [id number] [address] [place] [address], [place] [address] 06 Dec, 2012 [facility] [address] [id number] [address] [place] [address], [place] [address] 05 Dec, 2012 [facility] [address] [id number] [address] [place] [address], [place] [address] 31 Nov, 2012 [facility] [address] [id number] [address] [place] [address], [place] [address] 24 Nov, 2012 [facility] [address] [id number] [address] [place] [address], [place] [address] 18 Nov, 2012 [facility] [address] [id number] [address] [place] [address], [place] [address] 15 Nov, 2012 [facility] [address] [id number] [address] [place] [address], [place] [address] 10 Nov, 2012 [facility] [address] [id number] [address] [place] [address], [place] [address] Nov, [facility] [address] [id number] [address] [place] [address], [place] [address] Nov, [facility] [address] [id number] [address] [place] [address], [place] [address] Oct, [facility] [address] [id number] [address] [place] [address], [place] [address] Oct, [facility] [address] [id number] [address] [place] [address], [place] [address] Oct, [facility] [address] [id number] [address] [place] [address], [place] [address] Oct, [facility] [address] [id number] [address] [place] [address], [place] [address] Oct, [facility] [address] [id number] [address] [place] [address], [place] [address] 17 Oct, 2012 [facility] [address] [id number] [address] [place] [address], [place] [address] 07 Oct, 2012 [facility] [address] [id number] [address] [place] [address], [place] [address] 07 Oct, 2012 [facility] [address] [id number] [address] [place] [address], [place] [address] 05 Oct, 2012 [facility] [address] [id number] [address] [place] [address], [place] [address] 05 Oct, 2012 [facility] [address] [id number] [address] [place] [address], [place] [address] 04 Oct, 2012 [facility] [address] [id number] [address] [place] [address], [place] [address] Oct, [facility] [address] [id number] [address] [place] [address], [place] [address] Sep, [facility] [address] [id number] [address] [place] [address], [place] [address] Sep, [facility] [address] [id number] [address] [place] [address], [place] [address] Sep, [facility] [address] [id number] [address] [place] [address], [place] [address] Sep, [facility] [address] [id number] [address] [place] [address], [place] [address] Sep, [facility] [address] [id number] [address] [place] [address], [place] [address] Sep, [facility] [address] [id number] [address] [place] [address], [place] [address] Sep, [facility] [address] [id number] [address] [place] [address], [place] [address] Sep, [facility] [address] [id number] [address] [place] [address], [place] [address] Sep, [facility] [address] [id number] [address] [place] [address], [place] [address] Sep, [facility] [address] [id number] [address] [place] [address], [place] [address] Sep, [facility] [address] [id number] [address] [place] [address], [place] [address] Aug, [facility] [address] [id number] [address] [place] [address], [place] [address] Aug, [facility] [address] [id number] [address] [place] [address], [place] [address] Aug, [facility] [address] [id number] [address] [place] [address], [place] [address] Aug, [facility] [address] [id number] [address] [place] [address], [place] [address] Aug, [facility] [address] [id number] [address] [place] [address], [place] [address] Aug, [facility] [address] [id number] [address] [place] [address], [place] [address] Aug, [facility] [address] [id number] [address] [place] [address], [place] [address] Aug, [facility] [address] [id number] [address] [place] [address], [place] [address] Aug, [facility] [address] [id number] [address] [place] [address], [place] [address] Aug, [facility] [address] [id number] [address] [place] [address], [place] [address] Jul, [facility] [address] [id number] [address] [place] [address], [place] [address] 20 Jul, 2012 [facility] [address] [id number] [address] [place] [address], [place] [address] Jul, [facility] [address] [id number] [address] [place] [address], [place] [address] 06 Jul, 2012 [facility] [address] [id number] [address] [place] [address], [place] [address] 30 Jun, 2012 [facility] [address] [id number] [address] [place] [address], [place] [address] Jun, [facility] [address] [id number] [address] [place] [address], [place] [address] Jun, [facility] [address] [id number] [address] [place] [address], [place] [address] Jun, [facility] [address] [id number] [address] [place] [address], [place] [address] Jun, [facility] [address] [id number] [address] [place] [address], [place] [address] Jun, [facility] [address] [id number] [address] [place] [address], [place] [address] Jun, [facility] [address] [id number] [address] [place] [address], [place] [address] May, [facility] [address] [id number] [address] [place] [address], [place] [address] May, [facility] [address] [id number] [address] [place] [address], [place] [address] May, [facility] [address] [id number] [address] [place] [address], [place] [address] May, [facility] [address] [id number] [address] [place] [address], [place] [address] May, [facility] [address] [id number] [address] [place] [address], [place] [address] Apr, [facility] [address] [id number] [address] [place] [address], [place] [address] Apr, [facility] [address] [id number] [address] [place] [address], [place] [address] Apr, [facility] [address] [id number] [address] [place] [address], [place] [address] Apr, [facility] [address] [id number] [address] [place] [address], [place] [address] Apr, [facility] [address] [id number] [address] [place] [address], [place] [address] March, [facility] [address] [id number] [address] [place] [address], [place] [address] March, [facility] [address] [id number] [address] [place] [address], [place] [address] March, [facility] [address] [id number] [address] [place] [address], [place] [address] March, [facility] [address] [id number] [address] [place] [address], [place] [address] March, [facility] [address] [id number] [address] [place] [address], [place] [address] March, [facility] [address] [id number] [address] [place] [address], [place] [address] March, [facility] [address] [id number] [address] [place] [address], [place] [address] March, [facility] [address] [id number] [address] [place] [address], [place] [address] March, [facility] [address] [id number] [address] [place] [address], [place] [address] March, [facility] [address] [id number] [address] [place] [address], [place] [address] Feb, [facility] [address] [id number] [address] [place] [address], [place] [address] Feb, [facility] [address] [id number] [address] [place] [address], [place] [address] Feb, [facility] [address] [id number] [address] [place] [address], [place] [address] Feb, [facility] [address] [id number] [address] [place] [address], [place] [address] Feb, [facility] [address] [id number] [address] [place] [address], [place] [address] Feb, [facility] [address] [id number] [address] [place] [address], [place] [address] Feb, [facility] [address] [id number] [address] [place] [address], [place] [address] Feb, [facility] [address] [id number] [address] [place] [address], [place] [address] Feb, [facility] [address] [id number] [address] [place] [address], [place] [address] Jan, [facility] [address] [id number] [facility] [place] [address] 07 Jan, 2012 [facility] [address] [id number] [address] [place] [address], [place] [address] 05 Jan, 2012 [facility] [address] [id number] [address] [place] [address], [place] [address] 02 Jan, 2012 [facility] [address] [id number] [address] [place] [address], [place] [address] Dec, [facility] [address] [id number] [address] [place] [address], [place] [address] Dec, [facility] [address] [id number] [address] [place] [address], [place] [address] Nov, [facility] [address] [id number] [address] [place] [address], [place] [address] Nov, [facility] [address] [id number] [address] [place] [address], [place] [address] Nov, [facility] [address] [id number] [address] [place] [address], [place] [address] Nov, [facility] [address] [id number] [address] [place] [address], [place] [address] Nov, [facility] [address] [id number] [address] [place] [address], [place] [address] Oct, [facility] [address] [id number] [address] [place] [address], [place] [address] Oct, [facility] [address] [id number] [address] [place] [address], [place] [address] Oct, [facility] [address] [id number] [address] [place] [address], [place] [address] Oct, [facility] [address] [id number] [address] [place] [address], [place] [address] Oct, [facility] [address] [id number] [address] [address] Oct, [facility] [address] [facility] [id number] [address] [place] [id number] Oct, [facility] [address] [facility] [id number] [address] [place] [id number] Oct, [facility] [address] [facility] [id number] [address] [place] [id number] Sep, IMMUNIZATIONS No Known Immunizations SOCIAL HISTORY Never Assessed REASON FOR VISIT PLAN OF CARE VITAL SIGNS Height 62 in 2014-11-26 Weight 184.9 lbs 2014-11-26 Temperature 98 degrees Fahrenheit 2014-11-26 Heart Rate 78 bpm 2014-11-26 Respiratory Rate 26 2014-11-26 Blood pressure systolic 140 mmHg 2014-11-26 Blood pressure diastolic 78 mmHg 2014-11-26 MEDICATIONS Unknown Medications RESULTS No Results PROCEDURES Procedure Date Ordered Result Body Site US EXAM, ABDOM, COMPLETE Nov 26, 2014 INSTRUCTIONS MEDICATIONS ADMINISTERED No Known Medications MEDICAL (GENERAL) HISTORY Type Description Date Medical History aortic abdominal aneurysm moderate 04/06 18 Medical History illiac aneurysm 03/2018 Surgical History No Surgical history information Hospitalization History [facility]- Urosepsis, ab d pain and fever, discharged 11/27/2017 11/26/2017 Hospitalization History [facility] [place]- Went Unrepsonsive, Hit head 2017 Hospitalization History [facility] [place]- Back Pain 05/05/201 8
--- OUTSIDE RECORDS SUMMARY | 2020-06-18 15:23 | XMS REPORT ---
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 Name Role Phone ELIZABETHROYASHARIF Unavailable PROBLEMS Type Condition ICD9-CM Code PGQ13-KT Code Onset Dates Condition S tatus SNOMED Code Problem Coronary artery disease I25.10 Active 85266108 Problem Hypertension I10 Active 3458434 3 Problem Other chronic pain G89.29 Active 8 2644266 Problem Hyperlipidemia E78.5 Active 94269 004 Problem Type 2 diabetes mellitus wit hout complication, without long-term current use of insulin E11.9 Active 153086065 Problem Low back pain M54.5 Active 453110 009 Problem Pharyngeal dysphagia R13.13 Active 12727126100305 Problem Anxiety F41.9 Active 09273102 Problem Peripheral vascular disease I73.9 Ac tive 707412693 Problem Suprapubic catheter Z93.59 Active 776145827 Problem Reactive depression F32.9 Active 71340897 Problem Neurogenic bladder N31.9 Active 3 98784228 Problem Ventral hernia without obstruction or gangrene K43 .9 Active 962752476 Problem Insomnia G47.00 Active 146020001 Problem Paroxysmal atrial fibrillation I48.0 Active 459553578 Problem Postmenopausal atrophic vaginitis N95.2 Active 71896002 Problem Encounter for suprapubic catheter care Z43.5 Active 506989505 ALLERGIES No Information ENCOUNTERS Encounter Location Date Diagnosis [facility] [address] [place] [id number] Jun, [place] [address] [facility] [id number] [address] [place] [address] Apr, Via [facility] [address] [place] [id number] Apr, Strain of right shoulder, subsequent enc ounter S46.911D [facility] [address] [id number] [address] [place] [id number] 14 Apr, 2019 Strain of right shoulder, scherer bsequent encounter S46.911D and Anxiety F41.9 [facility] [address] [place] [id number] 13 Apr, 2019 Type 2 diabetes mellitus without complic ation, without long-term current use of insulin E11.9 and Neurogenic bladder N31.9 [facility] [address] [place] [id number] 11 Apr, 2019 Strain of right shoulder, subsequent enc ounter S46.911D ; History of GI bleed Z87.19 ; Neurogenic bladder N31.9 and Reactive depression F32.9 [place] [address] [id number] [address] [place] [phone] 10 Apr, 2019 Acute pain of left shoulder M25.512 [place] [address] [id number] [address] [place] [id number] Apr, [place] [address] [id number] [address] [place] [phone] Apr, Anxiety F41.9 and 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 [facility] [employer] [address] [place] [id number] March, Gastrointestinal hemorrhage associated w ith acute gastritis K29.01 [place] [address] [id number] [address] [place] [phone] March, [facility] [employer] [address] [place] [id number] March, Bronchitis J40 [place] [address] [id number] [address] [place] [phone] March, Cough R05 [place] [address] [id number] [address] [place] [phone] March, Other chronic pain G89.29 [place] [address] [id number] [address] [place] [phone] March, Anxiety F41.9 [place] [address] [id number] [address] [place] [phone] March, [facility] [address] [id number] [address] [place] [phone] Feb, Other chronic pain G89.29 [facility] [address] [id number] [address] [place] [phone] Feb, Anxiety F41.9 [facility] [address] [id number] [address] [place] [id number] Feb, Other chronic pain G89.29 [facility] [address] [place] [id number] Feb, Neurogenic bladder N31.9 and Suprapubic catheter Z93.59 [facility] [address] [id number] [address] [place] [phone] Jan, Anxiety F41.9 [facility] [address] [id number] [address] [place] [id number] Dec, Anxiety F41.9 [facility] [address] [id number] [address] [place] [phone] Dec, Other chronic pain G89.29 an d Anxiety F41.9 [facility] [address] [id number] [address] [place] [id number] Dec, [facility] [address] [place] [id number] Dec, Neurogenic bladder N31.9 and Suprapubic catheter Z93.59 [facility] [address] [id number] [address] [place] [id number] Nov, Other chronic pain G89.29 an d Anxiety F41.9 [facility] [address] [id number] [address] [place] [phone] Nov, [facility] [address] [place] [id number] Nov, Suprapubic catheter Z93.59 [facility] [address] [id number] [address] [place] [id number] 31 Oct, 2018 Other chronic pain G89.29 an d Anxiety F41.9 [facility] [address] [id number] [address] [place] [phone] Oct, [facility] [address] [facility] [id number] [address] [place] [id number] Oct, Suprapubic catheter Z93.59 [facility] [address] [id number] [address] [place] [phone] Oct, Via [employer] [address] [place] [id number] Oct, [facility] [address] [facility] [id number] [address] [place] [id number] Oct, Anxiety F41.9 [place] [address] [facility] [id number] [address] [place] [phone] Oct, Anxiety F41.9 Via [employer] [facility] [address] [place] [id number] Oct, Other chronic pain G89.29 [place] [address] [id number] [address] [place] [phone] Sep, Other chronic pain G89.29 [facility] [address] [place] [id number] Sep, Suprapubic catheter Z93.59 and Cervicalg ia M54.2 [facility] [address] [id number] [address] [place] [phone] Sep, [facility] [address] [id number] [address] [place] [phone] Sep, [facility] [address] [facility] [id number] [address] [place] [phone] Sep, Via [facility] [employer] [address] [place] [id number] Aug, Cystitis N30.90 [facility] [address] [id number] [address] [place] [id number] Aug, [facility] [address] [id number] [address] [place] [phone] Aug, Other chronic pain G89.29 [facility] [address] [id number] [address] [place] [phone] Aug, Via [employer] [address] [place] [id number] Aug, Encounter for suprapubic catheter care Z 43.5 [facility] [address] [id number] [address] [place] [id number] Jul, [facility] [address] [place] [id number] Jul, [facility] [address] [id number] [address] [place] [phone] Jul, Other chronic pain G89.29 [facility] [address] [id number] [address] [place] [phone] Jul, [facility] [address] [id number] [address] [place] [phone] Jul, [facility] [address] [place] [id number] Jun, Postmenopausal atrophic vaginitis N95.2 [facility] [address] [id number] [address] [place] [id number] Jun, Other chronic pain G89.29 [facility] [address] [id number] [address] [place] [phone] Jun, [facility] [address] [place] [id number] May, Anxiety F41.9 ; Type 2 diabetes mellitus without complication, without long-term current use of insulin E11.9 ; Hypertension I10 ; Low back pain M54.5 ; Paroxysmal atrial fibrillation I48.0 and 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 [facility] [address] [id number] [address] [place] [id number] May, Other chronic pain G89.29 [facility] [employer] [address] [place] [id number] May, Low back pain M54.5 [facility] [address] [id number] [address] [place] [phone] May, [facility] [address] [id number] [address] [place] [phone] Apr, Other chronic pain G89.29 [facility] [address] [id number] [address] [place] [id number] Apr, [facility] [address] [id number] [address] [place] [phone] Apr, [facility] [employer] [facility] [address] [place] [id number] 19 Apr, 2018 Closed compression fracture of L3 lumbar vertebra with routine healing, subsequent encounter S32.030D [facility] [employer] [facility] [address] [place] [id number] 14 Apr, 2018 Low back pain M54.5 [facility] [address] [place] [id number] Apr, Coccydynia M53.3 [facility] [address] [id number] [address] [place] [id number] March, [facility] [address] [id number] [address] [place] [phone] March, Other chronic pain G89.29 [facility] [address] [id number] [address] [place] [phone] March, [facility] [address] [id number] [address] [place] [phone] March, [facility] [address] [id number] [address] [place] [phone] Feb, [facility] [address] [id number] [address] [place] [id number] Feb, Other chronic pain G89.29 [facility] [address] [place] [id number] Feb, Other chronic pain G89.29 [address] F[address].9 [facility] [address] [id number] [address] [place] [id number] Feb, [facility] [address] [id number] [address] [place] [phone] Jan, [facility] [address] [id number] [address] [place] [phone] Jan, [facility] [address] [id number] [address] [place] [phone] Jan, [facility] [address] [facility] [id number] [address] [place] [phone] Jan, 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 [address] [id number] [address] [place] [phone] Nov, [facility] [address] [id number] [place] [id number] Nov, Anxiety F41.9 [facility] [address] [place] [id number] Nov, Status post surgery Z98.890 ; Confused R 41.0 ; Anxiety F41.9 and Other chronic pain G89.29 [facility] [address] [id number] [place] [id number] Nov, Other chronic pain G89.29 [facility] [address] [facility] [id number] [address] [place] [phone] Oct, [facility] [address] [id number] [place] [id number] Oct, Other chronic pain G89.29 [facility] [address] [facility] [id number] [address] [place] [phone] Oct, Anxiety F41.9 [place] [address] [id number] [place] [id number] Sep, Other chronic pain G89.29 [facility] [address] [id number] [place] [id number] Sep, [facility] [address] [place] [id number] Aug, Dysuria R30.[address] [facility] [address] [facility] [id number] [address] [place] [place] [phone] Aug, [facility] [address] [id number] [place] [id number] Aug, Other chronic pain G89.29 [facility] [address] [facility] [id number] [address] [place] [id number] Jul, Other chronic pain G89.29 [facility] [address] [id number] [place] [id number] Jun, [facility] [address] [id number] [place] [id number] Jun, Other chronic pain G89.29 [facility] [address] [facility] [id number] [address] [place] [phone] Jun, [facility] [address] [id number] [address] [place] [place] [phone] May, Other chronic pain G89.29 [facility] [address] [id number] [address] [place] [place] [phone] Apr, Other chronic pain G89.29 [facility] [address] [place] [id number] Apr, Reactive depression F32.9 and Pharyngeal dysphagia R13.13 [facility] [address] [id number] [address] [place] [phone] Apr, Urinary tract infection with out hematuria, site unspecified N39.0 [facility] [address] [id number] [address] [place] [id number] March, Other chronic pain G89.29 [facility] [address] [id number] [address] [place] [phone] Feb, Other chronic pain G89.29 [facility] [address] [id number] [address] [place] [place] [phone] Feb, [facility] [address] [id number] [facility] [place] [id number] Feb, [facility] [employer] [address] [place] [id number] Feb, Dysuria R30.0 and Ventral hernia without obstruction or gangrene K43.9 [facility] [address] [id number] [address] [place] [phone] Jan, Other chronic pain G89.29 [facility] [address] [id number] [place] [id number] Dec, Other chronic pain G89.29 [facility] [address] [id number] [address] [place] [id number] Nov, Other chronic pain G89.29 [facility] [employer] [address] [place] [id number] Nov, Lymphadenitis I88.9 [facility] [address] [id number] [address] [place] [phone] Nov, Other chronic pain G89.29 [facility] [address] [id number] [address] [place] [phone] Nov, [facility] [address] [id number] [place] [id number] Nov, Other chronic pain G89.29 [facility] [address] [place] [id number] Oct, Low back pain M54.5 ; Hypertension I10 a nd Type 2 diabetes mellitus without complication, without long-term current use of insulin E11.9 [facility] [address] [id number] [address] [place] [phone] Oct, [facility] [address] [id number] [address] [place] [id number] Oct, [facility] [address] [id number] [address] [place] [phone] Oct, [facility] [address] [id number] [address] [place] [phone] Oct, [facility] [address] [id number] [address] [place] [phone] Sep, [facility] [address] [id number] [address] [place] [phone] Sep, [facility] [address] [id number] [address] [place] [id number] Aug, Other chronic pain G89.29 [facility] [address] [id number] [address] [place] [phone] Jul, [facility] [address] [id number] [address] [place] [phone] Jul, [facility] [address] [id number] [address] [place] [id number] Jul, [facility] [address] [id number] [address] [place] [phone] Jun, [facility] [address] [id number] [address] [place] [phone] Jun, [facility] [address] [place] [id number] Jun, Low back pain M54.5 ; Other chronic pain G89.29 and Coronary artery disease I25.10 [facility] [address] [id number] [address] [place] [id number] Jun, [facility] [address] [id number] [address] [place] [phone] May, [facility] [address] [id number] [address] [place] [phone] May, [facility] [address] [id number] [address] [place] [phone] May, Other chronic pain G89.29 [facility] [address] [id number] [address] [place] [id number] May, [facility] [address] [id number] [address] [place] [phone] Apr, [facility] [address] [id number] [address] [place] [id number] Apr, Acute cystitis without hemat uria N30.00 [facility] [address] [id number] [address] [place] [id number] Apr, Acute cystitis without hemat uria N30.00 ; Coronary artery disease I25.10 ; Low back pain M54.5 and Other chronic pain G89.29 [facility] [address] [id number] [address] [place] [phone] Apr, Other chronic pain G89.29 [facility] [address] [id number] [address] [place] [id number] March, Other chronic pain G89.29 [facility] [address] [id number] [address] [place] [phone] 18 Feb, 2016 [facility] [address] [id number] [address] [place] [phone] 15 Feb, [address] [facility] [address] [id number] [address] [place] [phone] Feb, [facility] [address] [id number] [address] [place] [phone] [address], 2016 [facility] [address] [id number] [address] [place] [phone] Jan, [facility] [address] [id number] [address] [place] [phone] Jan, Other chronic pain G89.29 [facility] [address] [id number] [address] [place] [phone] Jan, Hypertension I10 ; Coronary artery disease I25.[address] [facility] [address] [id number] [address] [place] [phone] Jan, [facility] [address] [id number] [address] [place] [phone] Dec, Right hip pain M25.551 [facility] [address] [id number] [address] [place] [id number] Dec, [facility] [address] [id number] [address] [place] [id number] Dec, [facility] [address] [id number] [address] [place] [phone] Dec, [facility] [address] [facility] [id number] [address] [place] [phone] Dec, Other chronic pain G89.29 [facility] [address] [id number] [address] [place] [phone] Dec, [facility] [address] [id number] [address] [place] [phone] Nov, [facility] [address] [id number] [address] [place] [phone] Nov, Other chronic pain G89.29 [facility] [address] [id number] [address] [place] [id number] Nov, Right hip pain M25.551 and C oronary artery disease I25.10 [facility] [address] [id number] [address] [place] [place] [address] Nov, Other chronic pain G89.29 [facility] [address] [id number] [address] [place] [place] [address] Oct, [facility] [address] [id number] [address] [address] Oct, [facility] [address] [id number] [address] [address] Sep, [facility] [address] [id number] [address] [place] [address] Sep, [facility] [address] [id number] [address] [address] Aug, [facility] [address] [facility] [id number] [address] [place] [address] Aug, Hypertension I10 ; Coronary artery disease I25.[address] [facility] [address] [id number] [address] [place] [address] Jun, [facility] [address] [id number] [address] [place] [address] Jun, Essential hypertension, jayson gn 401.1 ; Other chronic pain 338.29 and Chronic airway obstruction, not elsewhere classified 496 [facility] [address] [id number] [address] [place] [address] Jun, [facility] [address] [id number] [address] [place] [address], [place] [address] Jun, [facility] [address] [id number] [address] [place] [address], [place] [address] Jun, [facility] [address] [id number] [address] [place] [address], [place] [address] May, [facility] [address] [id number] [address] [place] [address], [place] [address] May, [facility] [address] [id number] [address] [place] [address], [place] [address] Apr, [facility] [address] [id number] [address] [place] [address], [place] [address] Apr, [facility] [address] [id number] [address] [place] [address], [place] [address] Apr, [facility] [address] [id number] [address] [place] [address], [place] [address] March, [facility] [address] [id number] [address] [place] [address], [place] [address] March, [facility] [address] [id number] [address] [place] [address], [place] [address] March, [facility] [address] [id number] [address] [place] [address], [place] [address] March, [facility] [address] [id number] [address] [place] [address], [place] [address] March, Sialadenitis 527.2 [facility] [address] [id number] [address] [place] [address], [place] [address] Feb, [facility] [address] [id number] [address] [place] [address], [place] [address] Feb, [facility] [address] [id number] [address] [place] [address], [place] [address] Feb, [facility] [address] [id number] [address] [place] [address], [place] [address] 14 Feb, 2015 [facility] [address] [id number] [address] [place] [address], [place] [address] 13 Feb, 2015 [facility] [address] [id number] [address] [place] [address], [place] [address] Jan, [facility] [address] [id number] [address] [place] [address], [place] [address] Jan, [facility] [address] [id number] [address] [place] [address], [place] [address] Jan, [facility] [address] [id number] [address] [place] [address], [place] [address] Jan, [facility] [address] [id number] [address] [place] [address], [place] [address] Jan, [facility] [address] [id number] [address] [place] [address], [place] [address] Jan, [facility] [address] [id number] [address] [place] [address], [place] [address] Dec, [facility] [address] [id number] [address] [place] [address], [place] [address] Dec, 2014 [facility] [address] [id number] [address] [place] [address], [place] [address] Dec, [facility] [address] [id number] [address] [place] [address], [place] [address] Dec, 2014 [facility] [address] [id number] [address] [place] [address], [place] [address] Dec, [facility] [address] [id number] [address] [place] [address], [place] [address] Dec, 2014 [facility] [address] [id number] [address] [place] [address], [place] [address] Nov, [facility] [address] [id number] [address] [place] [address], [place] [address] Nov, [facility] [address] [id number] [address] [place] [address], [place] [address] Nov, [facility] [address] [id number] [address] [place] [address], [place] [address] Nov, [facility] [address] [id number] [address] [place] [address], [place] [address] Nov, [facility] [address] [id number] [address] [place] [address], [place] [address] Nov, [facility] [address] [id number] [address] [place] [address], [place] [address] Nov, [facility] [address] [id number] [address] [place] [address], [place] [address] Nov, [facility] [address] [id number] [address] [place] [address], [place] [address] Nov, [facility] [address] [id number] [address] [place] [address], [place] [address] Nov, [facility] [address] [id number] [address] [place] [address], [place] [address] Nov, [facility] [address] [id number] [address] [place] [address], [place] [address] Nov, [facility] [address] [id number] [address] [place] [address], [place] [address] Nov, [facility] [address] [id number] [address] [place] [address], [place] [address] Nov, [facility] [address] [id number] [address] [place] [address], [place] [address] Oct, [facility] [address] [id number] [address] [place] [address], [place] [address] Oct, [facility] [address] [id number] [address] [place] [address], [place] [address] Oct, [facility] [address] [id number] [address] [place] [address], [place] [address] Oct, [facility] [address] [id number] [address] [place] [address], [place] [address] 18 Oct, 2014 [facility] [address] [id number] [address] [place] [address], [place] [address] Oct, [facility] [address] [id number] [address] [place] [address], [place] [address] Oct, [facility] [address] [id number] [address] [place] [address], [place] [address] Oct, [facility] [address] [id number] [address] [place] [address], [place] [address] Oct, [facility] [address] [id number] [address] [place] [address], [place] [address] Sep, [facility] [address] [id number] [address] [place] [address], [place] [address] Sep, [facility] [address] [id number] [address] [place] [address], [place] [address] Sep, [facility] [address] [id number] [address] [place] [address], [place] [address] Sep, [facility] [address] [id number] [address] [place] [address], [place] [address] Sep, [facility] [address] [id number] [address] [place] [address], [place] [address] Sep, [facility] [address] [id number] [address] [place] [address], [place] [address] Sep, [facility] [address] [id number] [address] [place] [address], [place] [address] Sep, [facility] [address] [id number] [address] [place] [address], [place] [address] Sep, [facility] [address] [id number] [address] [place] [address], [place] [address] Sep, [facility] [address] [id number] [address] [place] [address], [place] [address] Sep, [facility] [address] [id number] [address] [place] [address], [place] [address] Sep, [facility] [address] [id number] [address] [place] [address], [place] [address] Aug, [facility] [address] [id number] [address] [place] [address], [place] [address] Aug, [facility] [address] [id number] [address] [place] [address], [place] [address] Aug, [facility] [address] [id number] [address] [place] [address], [place] [address] Aug, [facility] [address] [id number] [address] [place] [address], [place] [address] Aug, [facility] [address] [id number] [address] [place] [address], [place] [address] Aug, [facility] [address] [id number] [address] [place] [address], [place] [address] Aug, [facility] [address] [id number] [address] [place] [address], [place] [address] 17 Aug, 2014 [facility] [address] [id number] [address] [place] [address], [place] [address] 30 Jul, 2013 [facility] [address] [id number] [address] [place] [address], [place] [address] 30 Sep, 2013 [facility] [address] [id number] [address] [place] [address], [place] [address] 30 Sep, 2013 [facility] [address] [id number] [address] [place] [address], [place] [address] 30 Sep, 2013 [facility] [address] [id number] [address] [place] [address], [place] [address] 25 Sep, 2013 [facility] [address] [id number] [address] [place] [address], [place] [address] 25 Sep, 2013 [facility] [address] [id number] [facility] [address] 15 Jul, 2014 [facility] [address] [id number] [facility] [place] [address] 15 Jul, 2014 [facility] [address] [id number] [facility] [place] [address] Jul, [facility] [address] [id number] [facility] [place] [address] Jul, [facility] [address] [id number] [facility] [place] [address] Jun, [facility] [address] [id number] [address] [place] [address], [place] [address] Jun, [facility] [address] [id number] [address] [place] [address], [place] [address] Jun, [facility] [address] [id number] [address] [place] [address], [place] [address] Jun, [facility] [address] [id number] [address] [place] [address], [place] [address] Jun, [facility] [address] [id number] [address] [place] [address], [place] [address] Jun, [facility] [address] [id number] [address] [place] [address], [place] [address] Jun, [facility] [address] [id number] [address] [place] [address], [place] [address] Jun, [facility] [address] [id number] [address] [place] [address], [place] [address] Jun, [facility] [address] [id number] [address] [place] [address], [place] [address] Jun, [facility] [address] [id number] [address] [place] [address], [place] [address] Jun, [facility] [address] [id number] [address] [place] [address], [place] [address] Jun, [facility] [address] [id number] [facility] [place] [address] Jun, [facility] [address] [id number] [address] [place] [address], [place] [address] Jun, [facility] [address] [id number] [address] [place] [address], [place] [address] Jun, [facility] [address] [id number] [address] [place] [address], [place] [address] Jun, [facility] [address] [id number] [address] [place] [address], [place] [address] Jun, [facility] [address] [id number] [address] [place] [address], [place] [address] Jun, [facility] [address] [id number] [address] [place] [address], [place] [address] Jun, [facility] [address] [id number] [address] [place] [address], [place] [address] Jun, [facility] [address] [id number] [address] [place] [address], [place] [address] Jun, [facility] [address] [id number] [address] [place] [address], [place] [address] Jun, [facility] [address] [id number] [address] [place] [address], [place] [address] May, [facility] [address] [id number] [address] [place] [address], [place] [address] May, [facility] [address] [id number] [address] [place] [address], [place] [address] May, [facility] [address] [id number] [address] [place] [address], [place] [address] May, [facility] [address] [id number] [address] [place] [address], [place] [address] May, [facility] [address] [id number] [facility] [place] [address] May, 2013 [facility] [address] [id number] [facility] [place] [address] May, 2013 [facility] [address] [id number] [facility] [place] [address] May, 2013 [facility] [address] [id number] [address] [place] [address], [place] [address] May, 2013 [facility] [address] [id number] [address] [place] [address], [place] [address] May, 2013 [facility] [address] [id number] [address] [place] [address], [place] [address] May, 2013 [facility] [address] [id number] [address] [place] [address], [place] [address] May, [facility] [address] [id number] [address] [place] [address], [place] [address] May, [facility] [address] [id number] [address] [place] [address], [place] [address] Apr, [facility] [address] [id number] [address] [place] [address], [place] [address] Apr, [facility] [address] [id number] [address] [place] [address], [place] [address] Apr, [facility] [address] [id number] [address] [place] [address], [place] [address] Apr, [facility] [address] [id number] [address] [place] [address], [place] [address] Apr, [facility] [address] [id number] [address] [place] [address], [place] [address] Apr, [facility] [address] [id number] [address] [place] [address], [place] [address] Apr, [facility] [address] [id number] [address] [place] [address], [place] [address] Apr, [facility] [address] [id number] [address] [place] [address], [place] [address] Apr, [facility] [address] [id number] [address] [place] [address], [place] [address] March, [facility] [address] [id number] [address] [place] [address], [place] [address] March, [facility] [address] [id number] [address] [place] [address], [place] [address] March, [facility] [address] [id number] [address] [place] [address], [place] [address] March, [facility] [address] [id number] [address] [place] [address], [place] [address] March, [facility] [address] [id number] [address] [place] [address], [place] [address] March, [facility] [address] [id number] [address] [place] [address], [place] [address] March, [facility] [address] [id number] [address] [place] [address], [place] [address] March, [facility] [address] [id number] [address] [place] [address], [place] [address] March, [facility] [address] [id number] [address] [place] [address], [place] [address] March, [facility] [address] [id number] [address] [place] [address], [place] [address] March, [facility] [address] [id number] [address] [place] [address], [place] [address] March, [facility] [address] [id number] [address] [place] [address], [place] [address] March, [facility] [address] [id number] [address] [place] [address], [place] [address] March, [facility] [address] [id number] [address] [place] [address], [place] [address] March, [facility] [address] [id number] [address] [place] [address], [place] [address] March, [facility] [address] [id number] [address] [place] [address], [place] [address] March, [facility] [address] [id number] [address] [place] [address], [place] [address] March, [facility] [address] [id number] [address] [place] [address], [place] [address] March, [facility] [address] [id number] [address] [place] [address], [place] [address] March, [facility] [address] [id number] [address] [place] [address], [place] [address] Feb, [facility] [address] [id number] [address] [place] [address], [place] [address] Feb, [facility] [address] [id number] [address] [place] [address], [place] [address] Feb, [facility] [address] [id number] [address] [place] [address], [place] [address] Feb, [facility] [address] [id number] [address] [place] [address], [place] [address] Feb, [facility] [address] [id number] [address] [place] [address], [place] [address] Feb, [facility] [address] [id number] [address] [place] [address], [place] [address] Feb, [facility] [address] [id number] [address] [place] [address], [place] [address] Feb, [facility] [address] [id number] [address] [place] [address], [place] [address] Jan, [facility] [address] [id number] [address] [place] [address], [place] [address] Jan, [facility] [address] [id number] [facility] [place] [address] 24 Jan, 2014 [facility] [address] [id number] [address] [place] [address], [place] [address] 24 Jan, 2014 [facility] [address] [id number] [address] [place] [address], [place] [address] Jan, [facility] [address] [id number] [address] [place] [address], [place] [address] Jan, [facility] [address] [id number] [address] [place] [address], [place] [address] Jan, [facility] [address] [id number] [address] [place] [address], [place] [address] Jan, [facility] [address] [id number] [address] [place] [address], [place] [address] Jan, [facility] [address] [id number] [address] [place] [address], [place] [address] Jan, [facility] [address] [id number] [address] [place] [address], [place] [address] 27 Dec, 2013 [facility] [address] [id number] [address] [place] [address], [place] [address] 26 Dec, 2013 [facility] [address] [id number] [address] [place] [address], [place] [address] 26 Dec, 2013 [facility] [address] [id number] [address] [place] [address], [place] [address] 2013 [facility] [address] [id number] [address] [place] [address], [place] [address] 2013 [facility] [address] [id number] [address] [place] [address], [place] [address] 13 Dec, 2013 [facility] [address] [id number] [address] [place] [address], [place] [address] 12 Dec, 2013 [facility] [address] [id number] [address] [place] [address], [place] [address] Dec, [facility] [address] [id number] [address] [place] [address], [place] [address] Nov, [facility] [address] [id number] [address] [place] [address], [place] [address] Nov, [facility] [address] [id number] [address] [place] [address], [place] [address] Nov, [facility] [address] [id number] [address] [place] [address], [place] [address] Nov, [facility] [address] [id number] [address] [place] [address], [place] [address] Nov, [facility] [address] [id number] [address] [place] [address], [place] [address] Nov, [facility] [address] [id number] [address] [place] [address], [place] [address] Nov, [facility] [address] [id number] [address] [place] [address], [place] [address] Nov, [facility] [address] [id number] [address] [place] [address], [place] [address] Nov, [facility] [address] [id number] [address] [place] [address], [place] [address] Nov, [facility] [address] [id number] [address] [place] [address], [place] [address] Nov, [facility] [address] [id number] [address] [place] [address], [place] [address] Nov, [facility] [address] [id number] [address] [place] [address], [place] [address] Nov, [facility] [address] [id number] [address] [place] [address], [place] [address] Oct, [facility] [address] [id number] [address] [place] [address], [place] [address] Oct, [facility] [address] [id number] [address] [place] [address], [place] [address] Oct, [facility] [address] [id number] [address] [place] [address], [place] [address] Oct, [facility] [address] [id number] [address] [place] [address], [place] [address] Oct, [facility] [address] [id number] [address] [place] [address], [place] [address] Oct, [facility] [address] [id number] [address] [place] [address], [place] [address] Oct, [facility] [address] [id number] [address] [place] [address], [place] [address] Oct, [facility] [address] [id number] [address] [place] [address], [place] [address] Oct, [facility] [facility] [address] [id number] [address] [place] [address], [place] [address] Oct, [facility] [address] [id number] [address] [place] [address], [place] [address] Oct, [facility] [address] [id number] [address] [place] [address], [place] [address] Oct, [facility] [address] [id number] [address] [place] [address], [place] [address] Oct, [facility] [address] [id number] [address] [place] [address], [place] [address] Oct, [facility] [address] [id number] [address] [place] [address], [place] [address] Sep, [facility] [address] [id number] [address] [place] [address], [place] [address] Sep, [facility] [address] [id number] [address] [place] [address], [place] [address] Sep, [facility] [address] [id number] [address] [place] [address], [place] [address] Sep, [facility] [address] [id number] [address] [place] [address], [place] [address] Sep, [facility] [address] [id number] [address] [place] [address], [place] [address] Sep, [facility] [address] [id number] [address] [place] [address], [place] [address] Sep, [facility] [address] [id number] [address] [place] [address], [place] [address] Sep, [facility] [address] [id number] [address] [place] [address], [place] [address] Sep, [facility] [address] [id number] [address] [place] [address], [place] [address] Sep, [facility] [address] [id number] [address] [place] [address], [place] [address] Aug, [facility] [address] [id number] [address] [place] [address] Aug, [facility] [address] [id number] [address] [place] [address], [place] [address] Aug, [facility] [address] [id number] [address] [place] [address] Aug, [facility] [address] [id number] [address] [place] [address] Aug, [facility] [address] [id number] [address] [place] [address] Aug, [facility] [address] [id number] [address] [place] [address], [place] [address] Aug, [facility] [address] [id number] [address] [place] [address] Aug, [facility] [address] [id number] [address] [place] [address], [place] [address] Aug, [facility] [address] [id number] [address] [place] [address], [place] [address] 22 Aug, 2012 [facility] [address] [id number] [address] [place] [address], [place] [address] 18 Aug, 2012 [facility] [address] [id number] [address] [place] [address], [place] [address] 18 Aug, 2012 [facility] [address] [id number] [address] [place] [address], [place] [address] 18 Aug, 2012 [facility] [address] [id number] [address] [place] [address], [place] [address] 18 Aug, 2012 [facility] [address] [id number] [address] [place] [address], [place] [address] 17 Aug, 2012 [facility] [address] [id number] [address] [place] [address], [place] [address] 14 Aug, 2013 [facility] [address] [id number] [address] [place] [address], [place] [address] 14 Aug, 2013 [facility] [address] [id number] [address] [place] [address], [place] [address] 01 Aug, 2013 [facility] [address] [id number] [address] [place] [address], [place] [address] 20 Jul, 2012 [facility] [address] [id number] [address] [place] [address], [place] [address] 19 Jul, 2012 [facility] [address] [id number] [address] [place] [address], [place] [address] 18 Jul, 2012 [facility] [address] [id number] [address] [place] [address], [place] [address] 11 Jul, 2012 [facility] [address] [id number] [address] [place] [address], [place] [address] 11 Jul, 2013 [facility] [address] [id number] [address] [place] [address], [place] [address] 28 Jun, 2013 [facility] [address] [id number] [address] [place] [address], [place] [address] 23 Jun, 2013 [facility] [address] [id number] [facility] [address] Jun, [facility] [address] [id number] [facility] [place] [address] Jun, [facility] [address] [id number] [facility] [place] [address] Jun, [facility] [address] [id number] [address] [place] [address], [place] [address] Jun, [facility] [address] [id number] [address] [place] [address], [place] [address] Jun, [facility] [address] [id number] [address] [place] [address], [place] [address] Jun, [facility] [address] [id number] [address] [place] [address], [place] [address] Jun, [facility] [address] [id number] [address] [place] [address], [place] [address] Jun, [facility] [address] [id number] [address] [place] [address], [place] [address] May, [facility] [address] [id number] [address] [place] [address], [place] [address] May, [facility] [address] [id number] [address] [place] [address], [place] [address] May, [facility] [address] [id number] [address] [place] [address], [place] [address] May, [facility] [address] [id number] [address] [place] [address], [place] [address] May, [facility] [address] [id number] [address] [place] [address], [place] [address] May, [facility] [address] [id number] [address] [place] [address], [place] [address] May, [facility] [address] [id number] [address] [place] [address], [place] [address] May, [facility] [address] [id number] [address] [place] [address], [place] [address] May, [facility] [address] [id number] [address] [place] [address], [place] [address] Apr, [facility] [address] [id number] [address] [place] [address], [place] [address] Apr, [facility] [address] [id number] [address] [place] [address], [place] [address] Apr, [facility] [address] [id number] [address] [place] [address], [place] [address] Apr, [facility] [address] [id number] [address] [place] [address], [place] [address] Apr, [facility] [address] [id number] [address] [place] [address], [place] [address] Apr, [facility] [address] [id number] [address] [place] [address], [place] [address] Apr, [facility] [address] [id number] [address] [place] [address], [place] [address] March, [facility] [address] [id number] [address] [place] [address], [place] [address] Feb, [facility] [address] [id number] [address] [place] [address], [place] [address] Feb, [facility] [address] [id number] [address] [place] [address], [place] [address] Feb, [facility] [address] [id number] [address] [place] [address], [place] [address] Jan, [facility] [address] [id number] [address] [place] [address], [place] [address] Jan, [facility] [address] [id number] [address] [place] [address], [place] [address] Jan, [facility] [address] [id number] [address] [place] [address], [place] [address] 14 Jan, 2013 [facility] [address] [id number] [address] [place] [address], [place] [address] 12 Jan, 2013 [facility] [address] [id number] [address] [place] [address], [place] [address] 08 Jan, 2013 [facility] [address] [id number] [address] [place] [address], [place] [address] 07 Jan, 2013 [facility] [address] [id number] [address] [place] [address], [place] [address] 04 Jan, 2013 [facility] [address] [id number] [address] [place] [address], [place] [address] 28 Dec, 2012 [facility] [address] [id number] [address] [place] [address], [place] [address] 25 Dec, 2012 [facility] [address] [id number] [address] [place] [address], [place] [address] 13 Dec, 2012 [facility] [address] [id number] [address] [place] [address], [place] [address] 11 Dec, 2012 [facility] [address] [id number] [address] [place] [address], [place] [address] 07 Dec, 2012 [facility] [address] [id number] [address] [place] [address], [place] [address] 06 Dec, 2012 [facility] [address] [id number] [address] [place] [address], [place] [address] 05 Dec, 2012 [facility] [address] [id number] [address] [place] [address], [place] [address] Nov, [facility] [address] [id number] [address] [place] [address], [place] [address] 24 Nov, 2012 [facility] [address] [id number] [address] [place] [address], [place] [address] 18 Nov, 2012 [facility] [address] [id number] [address] [place] [address], [place] [address] 15 Nov, 2012 [facility] [address] [id number] [address] [place] [address], [place] [address] 10 Nov, 2012 [facility] [address] [id number] [address] [place] [address], [place] [address] 10 Nov, 2012 [facility] [address] [id number] [address] [place] [address], [place] [address] Nov, [facility] [address] [id number] [address] [place] [address], [place] [address] Oct, [facility] [address] [id number] [address] [place] [address], [place] [address] Oct, [facility] [address] [id number] [address] [place] [address], [place] [address] Oct, [facility] [address] [id number] [address] [place] [address], [place] [address] Oct, [facility] [address] [id number] [address] [place] [address], [place] [address] Oct, [facility] [address] [id number] [address] [place] [address], [place] [address] Oct, [facility] [address] [id number] [address] [place] [address], [place] [address] Oct, [facility] [address] [id number] [address] [place] [address], [place] [address] Oct, [facility] [address] [id number] [address] [place] [address], [place] [address] 05 Oct, 2012 [facility] [address] [id number] [address] [place] [address], [place] [address] Oct, [facility] [address] [id number] [address] [place] [address], [place] [address] Oct, [facility] [address] [id number] [address] [place] [address], [place] [address] Oct, [facility] [address] [id number] [address] [place] [address], [place] [address] Sep, [facility] [address] [id number] [address] [place] [address], [place] [address] Sep, [facility] [address] [id number] [address] [place] [address], [place] [address] Sep, [facility] [address] [id number] [address] [place] [address], [place] [address] Sep, [facility] [address] [id number] [address] [place] [address], [place] [address] Sep, [facility] [address] [id number] [address] [place] [address], [place] [address] Sep, [facility] [address] [id number] [address] [place] [address], [place] [address] Sep, [facility] [address] [id number] [address] [place] [address], [place] [address] Sep, [facility] [address] [id number] [address] [place] [address], [place] [address] Sep, [facility] [address] [id number] [address] [place] [address], [place] [address] Sep, [facility] [address] [id number] [address] [place] [address], [place] [address] Sep, [facility] [address] [id number] [address] [place] [address], [place] [address] Aug, [facility] [address] [id number] [address] [place] [address], [place] [address] Aug, [facility] [address] [id number] [address] [place] [address], [place] [address] Aug, [facility] [address] [id number] [address] [place] [address], [place] [address] Aug, [facility] [address] [id number] [address] [place] [address], [place] [address] Aug, [facility] [address] [id number] [address] [place] [address], [place] [address] Aug, [facility] [address] [id number] [address] [place] [address], [place] [address] Aug, [facility] [address] [id number] [address] [place] [address], [place] [address] Aug, [facility] [address] [id number] [address] [place] [address], [place] [address] Aug, [facility] [address] [id number] [address] [place] [address], [place] [address] Aug, [facility] [address] [id number] [address] [place] [address], [place] [address] 22 Jul, 2012 [facility] [address] [id number] [address] [place] [address], [place] [address] 20 Jul, 2012 [facility] [address] [id number] [address] [place] [address], [place] [address] Jul, [facility] [address] [id number] [address] [place] [address], [place] [address] 06 Jul, 2012 [facility] [address] [id number] [address] [place] [address], [place] [address] 30 Jun, 2012 [facility] [address] [id number] [address] [place] [address], [place] [address] Jun, [facility] [address] [id number] [address] [place] [address], [place] [address] 16 Jun, 2012 [facility] [address] [id number] [address] [place] [address], [place] [address] Jun, [facility] [address] [id number] [address] [place] [address], [place] [address] Jun, [facility] [address] [id number] [address] [place] [address], [place] [address] Jun, [facility] [address] [id number] [address] [place] [address], [place] [address] Jun, [facility] [address] [id number] [address] [place] [address], [place] [address] May, [facility] [address] [id number] [address] [place] [address], [place] [address] May, [facility] [address] [id number] [address] [place] [address], [place] [address] May, [facility] [address] [id number] [address] [place] [address], [place] [address] May, [facility] [address] [id number] [address] [place] [address], [place] [address] May, [facility] [address] [id number] [address] [place] [address], [place] [address] Apr, [facility] [address] [id number] [address] [place] [address], [place] [address] Apr, [facility] [address] [id number] [address] [place] [address], [place] [address] Apr, [facility] [address] [id number] [address] [place] [address], [place] [address] Apr, [facility] [address] [id number] [address] [place] [address], [place] [address] Apr, [facility] [address] [id number] [address] [place] [address], [place] [address] March, [facility] [address] [id number] [address] [place] [address], [place] [address] March, [facility] [address] [id number] [address] [place] [address], [place] [address] March, [facility] [address] [id number] [address] [place] [address], [place] [address] March, [facility] [address] [id number] [address] [place] [address], [place] [address] March, [facility] [address] [id number] [address] [place] [address], [place] [address] March, [facility] [address] [id number] [address] [place] [address], [place] [address] March, [facility] [address] [id number] [address] [place] [address], [place] [address] March, [facility] [address] [id number] [address] [place] [address], [place] [address] March, [facility] [address] [id number] [address] [place] [address], [place] [address] March, [facility] [address] [id number] [address] [place] [address], [place] [address] Feb, [facility] [address] [id number] [address] [place] [address], [place] [address] Feb, [facility] [address] [id number] [address] [place] [address], [place] [address] Feb, [facility] [address] [id number] [address] [place] [address], [place] [address] Feb, [facility] [address] [id number] [address] [place] [address], [place] [address] Feb, [facility] [address] [id number] [address] [place] [address], [place] [address] Feb, [facility] [address] [id number] [address] [place] [address], [place] [address] Feb, [facility] [address] [id number] [address] [place] [address], [place] [address] Feb, [facility] [address] [id number] [address] [place] [address], [place] [address] Feb, [facility] [address] [id number] [address] [place] [address], [place] [address] Jan, [facility] [address] [id number] [address] [place] [address], [place] [address] Jan, [facility] [address] [id number] [facility] [place] [address] Jan, [facility] [address] [id number] [address] [place] [address], [place] [address] Jan, [facility] [address] [id number] [address] [place] [address], [place] [address] Dec, [facility] [address] [id number] [address] [place] [address], [place] [address] Dec, [facility] [address] [id number] [address] [place] [address], [place] [address] Nov, [facility] [address] [id number] [address] [place] [address], [place] [address] Nov, [facility] [address] [id number] [address] [place] [address], [place] [address] Nov, [facility] [address] [id number] [address] [place] [address], [place] [address] Nov, [facility] [address] [id number] [address] [place] [address], [place] [address] Nov, [facility] [address] [id number] [address] [place] [address], [place] [address] Oct, [facility] [address] [id number] [address] [place] [address], [place] [address] Oct, [facility] [address] [id number] [address] [place] [address], [place] [address] Oct, [facility] [address] [id number] [address] [place] [address], [place] [address] Oct, [facility] [address] [id number] [address] [place] [address], [place] [address] Oct, [facility] [address] [id number] [address] [place] [address], [place] [address] Oct, [facility] [address] [id number] [address] [address] Oct, [facility] [address] [facility] [id number] [address] [place] [address] Oct, [facility] [address] [facility] [id number] [address] [place] [id number] Sep, IMMUNIZATIONS No Known Immunizations SOCIAL HISTORY Never Assessed REASON FOR VISIT PLAN OF CARE VITAL SIGNS MEDICATIONS Unknown Medications RESULTS No Results PROCEDURES No Known procedures INSTRUCTIONS MEDICATIONS ADMINISTERED No Known Medications MEDICAL (GENERAL) HISTORY Type Description Date Medical History aortic abdominal aneurysm moderate 04/06 18 Medical History illiac aneurysm 03/2018 Surgical History No Surgical history information Hospitalization History [facility]- Urosepsis, ab d pain and fever, discharged 11/27/2017 11/26/2017 Hospitalization History [facility]- Went Unrepsonsive, Hit head 2017 Hospitalization History [facility]- Back Pain 05/05/201 8
--- OUTSIDE RECORDS SUMMARY | 2020-06-18 15:23 | XMS REPORT ---
Author Author Sanjuanita JOHNSON 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 Name Role Phone ELIZABETH SHARIF Unavailable PROBLEMS Type Condition ICD9-CM Code [id number] Code Onset Dates Condition S tatus SNOMED Code Problem Coronary artery disease I25.10 Active 56501825 Problem Hypertension I10 Active 1923915 3 Problem Other chronic pain G89.29 Active 8 1352673 Problem Hyperlipidemia E78.5 Active 81603 004 Problem Type 2 diabetes mellitus wit hout complication, without long-term current use of insulin E11.9 Active 388897419 Problem Low back pain M54.5 Active 727748 009 Problem Pharyngeal dysphagia R13.13 Active 44559875292618 Problem Anxiety F41.9 Active 84220291 Problem Peripheral vascular disease I73.9 Ac tive 943750630 Problem Suprapubic catheter Z93.59 Active 470072251 Problem Reactive depression F32.9 Active 16528089 Problem Neurogenic bladder N31.9 Active 3 61243520 Problem Ventral hernia without obstruction or gangrene K43 .9 Active 262688225 Problem Insomnia G47.00 Active 051584670 Problem Paroxysmal atrial fibrillation I48.0 Active 679032740 Problem Postmenopausal atrophic vaginitis N95.2 Active 07855370 Problem Encounter for suprapubic catheter care Z43.5 Active 846422104 ALLERGIES No Information ENCOUNTERS Encounter Location Date Diagnosis Via [facility] [address] [place] [id number] Jun, [facility] [address] [facility] [id number] [address] [place] [id number] May, [facility] [address] [facility] [id number] [address] [place] [id number] Apr, Via [facility] [employer] [address] [place] [id number] Apr, Strain of right shoulder, subsequent enc ounter S46.911D [facility] [address] [id number] [address] [place] [id number] 14 Apr, 2019 Strain of right shoulder, scherer bsequent encounter S46.911D and Anxiety F41.9 Via [facility] [employer] [address] [place] [id number] 13 Apr, 2019 Type 2 diabetes mellitus without complic ation, without long-term current use of insulin E11.9 and Neurogenic bladder N31.9 [facility] [address] [place] [id number] 11 Apr, 2019 Strain of right shoulder, subsequent enc ounter S46.911D ; History of GI bleed Z87.19 ; Neurogenic bladder N31.9 and Reactive depression F32.9 [facility] [address] [id number] [address] [place] [id number] 10 Apr, 2019 Acute pain of left shoulder M25.512 [facility] [address] [id number] [address] [place] [id number] 07 Apr, 2019 [facility] [address] [id number] [address] [place] [id number] 06 Apr, 2019 Anxiety F41.9 and 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 [facility] [address] [place] [id number] March, Gastrointestinal hemorrhage associated w ith acute gastritis K29.01 [facility] [place] [address] [id number] [address] [place] [phone] March, Via [facility] [employer] [address] [place] [id number] March, Bronchitis J40 [place] [address] [id number] [address] [place] [id number] March, Cough R05 [facility] [address] [id number] [address] [place] [id number] March, Other chronic pain G89.29 [place] [address] [id number] [address] [place] [id number] March, Anxiety F41.9 [facility] [address] [id number] [address] [place] [phone] March, [facility] [address] [id number] [address] [place] [id number] Feb, Other chronic pain G89.29 [facility] [address] [id number] [address] [place] [id number] Feb, Anxiety F41.9 [facility] [address] [id number] [address] [place] [id number] Feb, Other chronic pain G89.29 [facility] [employer] [address] [place] [id number] Feb, Neurogenic bladder N31.9 and Suprapubic catheter Z93.59 [facility] [address] [id number] [address] [place] [phone] Jan, Anxiety F41.9 [facility] [address] [id number] [address] [place] [id number] Dec, Anxiety F41.9 [facility] [address] [id number] [address] [place] [id number] Dec, Other chronic pain G89.29 an d Anxiety F41.9 [facility] [address] [id number] [address] [place] [id number] Dec, Via [employer] [address] [place] [id number] Dec, Neurogenic bladder N31.9 and Suprapubic catheter Z93.59 [facility] [address] [id number] [address] [place] [id number] Nov, Other chronic pain G89.29 an d Anxiety F41.9 [facility] [address] [id number] [address] [place] [phone] Nov, Via [employer] [address] [place] [id number] Nov, Suprapubic catheter Z93.59 [facility] [address] [id number] [address] [place] [id number] Oct, Other chronic pain G89.29 an d Anxiety F41.9 [facility] [address] [id number] [address] [place] [address] Oct, [facility] [address] [id number] [address] [place] [phone] Oct, Suprapubic catheter Z93.59 [facility] [address] [id number] [address] [place] [id number] Oct, Via [employer] [address] [place] [id number] Oct, [facility] [address] [id number] [address] [place] [address] Oct, Anxiety F41.9 [facility] [address] [id number] [address] [place] [id number] Oct, Anxiety F41.9 Via [employer] [address] [place] [id number] Oct, Other chronic pain G89.29 [facility] [address] [id number] [address] [place] [phone] Sep, Other chronic pain G89.29 Via [employer] [address] [place] [id number] Sep, Suprapubic catheter Z93.59 and Cervicalg ia M54.2 [facility] [address] [id number] [address] [place] [phone] Sep, [facility] [address] [id number] [address] [place] [address] Sep, [facility] [address] [id number] [address] [place] [address] Sep, Via [employer] [address] [place] [id number] Aug, Cystitis N30.90 [facility] [address] [id number] [address] [place] [phone] Aug, [facility] [address] [id number] [address] [place] [phone] Aug, Other chronic pain G89.29 [facility] [address] [id number] [address] [place] [id number] Aug, Via [facility] [employer] [address] [place] [id number] Aug, Encounter for suprapubic catheter care Z 43.5 [facility] [address] [id number] [address] [place] [phone] Jul, Via [facility] [employer] [address] [place] [id number] Jul, [facility] [address] [id number] [address] [place] [id number] Jul, Other chronic pain G89.29 [facility] [address] [id number] [address] [place] [phone] Jul, [facility] [address] [id number] [address] [place] [id number] Jul, Via [facility] [employer] [address] [place] [id number] Jun, Postmenopausal atrophic vaginitis N95.2 [facility] [address] [id number] [address] [place] [id number] Jun, Other chronic pain G89.29 [facility] [address] [id number] [address] [place] [address] Jun, Via [facility] [employer] [address] [place] [id number] May, Anxiety F41.9 ; Type 2 diabetes mellitus without complication, without long-term current use of insulin E11.9 ; Hypertension I10 ; Low back pain M54.5 ; Paroxysmal atrial fibrillation I48.0 and 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 [facility] [address] [id number] [address] [place] [id number] May, Other chronic pain G89.29 Via [facility] [employer] [address] [place] [id number] May, Low back pain M54.5 [facility] [address] [id number] [address] [place] [id number] May, [facility] [address] [id number] [address] [place] [phone] Apr, Other chronic pain G89.29 [facility] [address] [id number] [address] [place] [address] Apr, [facility] [address] [id number] [address] [place] [phone] Apr, Via [employer] [address] [place] [id number] Apr, Closed compression fracture of L3 lumbar vertebra with routine healing, subsequent encounter S32.030D [facility] [employer] [address] [place] [id number] Apr, Low back pain M54.5 Via [facility] [employer] [address] [place] [id number] Apr, Coccydynia M53.3 [facility] [address] [id number] [address] [place] [phone] March, [facility] [address] [id number] [address] [place] [address] March, Other chronic pain G89.29 [facility] [address] [id number] [address] [place] [phone] March, [facility] [address] [id number] [address] [place] [phone] March, [facility] [address] [id number] [address] [place] [phone] Feb, [facility] [address] [id number] [address] [place] [id number] Feb, Other chronic pain G89.29 Via [facility] [employer] [address] [place] [id number] Feb, Other chronic pain G89.29 and Anxiety F4 1.9 [facility] [address] [id number] [address] [place] [phone] Feb, [facility] [address] [id number] [address] [place] [phone] Jan, [facility] [address] [id number] [address] [place] [id number] Jan, [facility] [address] [id number] [address] [place] [id number] Jan, [facility] [address] [facility] [id number] [address] [place] [phone] Jan, [facility] [address] [id number] [address] [place] [address] Dec, Via [employer] [address] [place] [id number] Dec, Peripheral vascular disease I73.9 ; 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 ; Other chronic pain G89.29 ; Anxiety F41.9 ; Reactive depression F32.9 ; Insomnia G47.00 and Type 2 diabetes mellitus without complication, without long-term current use of insulin E11.[address] [facility] [address] [id number] [place] [address] Nov, [facility] [address] [id number] [place] [id number] Nov, Anxiety F41.9 [facility] [address] [facility] [id number] [address] [place] [phone] Nov, [facility] [address] [id number] [place] [id number] Nov, Anxiety F41.9 Via [employer] [address] [place] [id number] Nov, Status post surgery Z98.890 ; Confused R 41.0 ; Anxiety F41.9 and Other chronic pain G89.29 [facility] [address] [id number] [place] [id number] Nov, Other chronic pain G89.29 [facility] [address] [id number] [address] [place] [phone] Oct, [facility] [address] [id number] [place] [id number] Oct, Other chronic pain G89.29 [facility] [address] [id number] [address] [place] [phone] Oct, Anxiety F41.9 [facility] [address] [id number] [place] [id number] Sep, Other chronic pain G89.29 [facility] [address] [id number] [place] [id number] Sep, Via [employer] [address] [place] [id number] Aug, Dysuria R30.0 and Anxiety F41.9 [facility] [address] [id number] [address] [place] [id number] Aug, [facility] [address] [id number] [place] [id number] Aug, Other chronic pain G89.29 [facility] [address] [id number] [address] [place] [id number] Jul, Other chronic pain G89.29 [facility] [address] [id number] [place] [id number] Jun, [facility] [address] [id number] [place] [id number] Jun, Other chronic pain G89.29 [facility] [address] [id number] [address] [place] [id number] Jun, [facility] [address] [id number] [address] [place] [id number] May, Other chronic pain G89.29 [facility] [address] [id number] [address] [place] [phone] Apr, Other chronic pain G89.29 Via [facility] [address] [place] [id number] Apr, Reactive depression F32.9 and Pharyngeal dysphagia R13.13 [facility] [address] [id number] [address] [place] [id number] Apr, Urinary tract infection with out hematuria, site unspecified N39.0 [facility] [address] [id number] [address] [place] [address] March, Other chronic pain G89.29 [facility] [address] [id number] [address] [place] [phone] Feb, Other chronic pain G89.29 [facility] [address] [id number] [address] [place] [phone] Feb, [facility] [id number] [place] [id number] Feb, Via [facility] [address] [place] [id number] Feb, Dysuria R30.0 and Ventral hernia without obstruction or gangrene K43.9 [facility] [address] [id number] [address] [place] [phone] Jan, Other chronic pain G89.29 [facility] [address] [id number] [place] [id number] Dec, Other chronic pain G89.29 [facility] [address] [id number] [address] [place] [phone] Nov, Other chronic pain G89.29 Via [facility] [address] [place] [id number] Nov, Lymphadenitis I88.9 [facility] [address] [id number] [address] [place] [address] Nov, Other chronic pain G89.29 [facility] [address] [id number] [address] [place] [phone] Nov, [facility] [id number] [place] [id number] Nov, Other chronic pain G89.29 Via [facility] [address] [place] [id number] Oct, Low back pain M54.5 ; Hypertension I10 a nd Type 2 diabetes mellitus without complication, without long-term current use of insulin E11.9 [facility] [address] [id number] [address] [place] [id number] Oct, [facility] [address] [id number] [address] [place] [phone] Oct, [facility] [address] [id number] [address] [place] [id number] Oct, [facility] [address] [id number] [address] [place] [id number] Oct, [facility] [address] [id number] [address] [place] [phone] Sep, [facility] [address] [id number] [address] [place] [id number] Sep, [facility] [address] [id number] [address] [place] [address] Aug, Other chronic pain G89.29 [facility] [address] [id number] [address] [place] [id number] Jul, [facility] [address] [id number] [address] [place] [id number] Jul, [facility] [address] [id number] [address] [place] [id number] Jul, [facility] [address] [id number] [address] [place] [phone] Jun, [facility] [address] [id number] [address] [place] [phone] Jun, Via [facility] [address] [place] [id number] Jun, Low back pain M54.5 ; Other chronic pain G89.29 and Coronary artery disease I25.10 [facility] [address] [id number] [address] [place] [id number] Jun, [facility] [address] [id number] [address] [place] [id number] May, [facility] [address] [id number] [address] [place] [id number] May, [facility] [address] [id number] [address] [place] [id number] May, Other chronic pain G89.29 [facility] [address] [id number] [address] [place] [id number] May, [facility] [address] [id number] [address] [place] [address] Apr, [facility] [address] [id number] [address] [place] [id number] 17 Apr, 2016 Acute cystitis without hemat uria N30.00 [facility] [address] [id number] [address] [place] [address] Apr, Acute cystitis without hemat uria N30.00 ; Coronary artery disease I25.10 ; Low back pain M54.5 and Other chronic pain G89.29 [facility] [address] [id number] [address] [place] [id number] 13 Apr, 2016 Other chronic pain G89.29 [facility] [address] [id number] [address] [place] [id number] March, Other chronic pain G89.29 [facility] [address] [id number] [address] [place] [id number] 18 Feb, 2016 [facility] [address] [id number] [address] [place] [id number] Feb, Arthritis M19.90 [facility] [address] [id number] [address] [place] [id number] Feb, [facility] [address] [id number] [address] [place] [id number] Jan, [facility] [address] [id number] [address] [place] [id number] Jan, [facility] [address] [id number] [address] [place] [id number] Jan, Other chronic pain G89.29 [facility] [address] [id number] [address] [place] [id number] Jan, Hypertension I10 ; Coronary artery disease I25.10 and Insomnia G47.00 [facility] [address] [id number] [address] [place] [id number] Jan, [facility] [address] [id number] [address] [place] [phone] Dec, Right hip pain M25.551 [facility] [address] [id number] [address] [place] [id number] Dec, [facility] [address] [id number] [address] [place] [phone] Dec, [facility] [address] [id number] [address] [place] [id number] Dec, [facility] [address] [id number] [address] [place] [id number] Dec, Other chronic pain G89.29 [facility] [address] [id number] [address] [place] [id number] Dec, [facility] [address] [id number] [address] [place] [id number] Nov, [facility] [address] [facility] [id number] [address] [place] [id number] Nov, Other chronic pain G89.29 [facility] [address] [id number] [address] [place] [id number] Nov, Right hip pain M25.551 and C oronary artery disease I25.10 [facility] [address] [id number] [address] [place] [id number] Nov, Other chronic pain G89.29 [facility] [address] [facility] [id number] [address] [place] [id number] Oct, [facility] [address] [facility] [id number] [address] [place] [id number] Oct, [facility] [address] [facility] [id number] [address] [place] [id number] Sep, [facility] [address] [facility] [id number] [address] [place] [phone] Sep, [facility] [address] [facility] [id number] [address] [place] [id number] Aug, [facility] [address] [facility] [id number] [address] [place] [id number] Aug, Hypertension I10 ; Coronary artery disease I25.10 and Arthritis M19.90 [facility] [address] [id number] [address] [place] [phone] Jun, [facility] [address] [facility] [id number] [address] [place] [id number] Jun, Essential hypertension, jayson gn 401.1 ; Other chronic pain 338.29 and Chronic airway obstruction, not elsewhere classified 496 [facility] [address] [id number] [address] [place] [address], [place] [id number] Jun, [facility] [place] [address] [id number] [address] [place] [address], [place] [phone] Jun, [facility] [place] [address] [id number] [address] [place] [address], [place] [id number] Jun, [facility] [place] [address] [id number] [address] [place] [address], [place] [phone] May, [facility] [place] [address] [id number] [address] [place] [address], [place] [address] May, [facility] [place], [facility] [address] [id number] [address] [place] [address], [place] [address] Apr, [facility] [place] [address] [id number] [address] [place] [address], [place] [address] Apr, [facility] [place] [address] [id number] [address] [place] [address], [place] [address] Apr, [facility] [address] [id number] [address] [place] [address], [place] [address] March, [facility] [place] [address] [id number] [address] [place] [address], [place] [address] March, [facility] [address] [id number] [address] [place] [address], [place] [address] March, [facility] [address] [id number] [address] [place] [address], [place] [address] March, [facility] [address] [id number] [address] [place] [address], [place] [address] March, Sialadenitis 527.2 [facility] [place] [address] [id number] [address] [place] [address], [place] [address] Feb, [facility] [address] [id number] [address] [place] [address], [place] [address] Feb, [facility] [address] [id number] [address] [place] [address], [place] [address] 29 Feb, 2015 [facility] [address] [id number] [address] [place] [address], [place] [address] 14 Feb, 2015 [facility] [address] [id number] [address] [place] [address], [place] [address] 13 Feb, 2015 [facility] [address] [id number] [address] [place] [address], [place] [address] Jan, [facility] [address] [id number] [address] [place] [address], [place] [address] Jan, [facility] [address] [id number] [address] [place] [address], [place] [address] Jan, [facility] [address] [id number] [address] [place] [address], [place] [address] Jan, [facility] [address] [id number] [address] [place] [address], [place] [address] Jan, [facility] [address] [id number] [address] [place] [address], [place] [address] Jan, [facility] [address] [id number] [address] [place] [address], [place] [address] Dec, [facility] [address] [id number] [address] [place] [address], [place] [address] Dec, [facility] [address] [id number] [address] [place] [address], [place] [address] Dec, 2014 [facility] [address] [id number] [address] [place] [address], [place] [address] Dec, 2014 [facility] [address] [id number] [address] [place] [address], [place] [address] Dec, 2014 [facility] [address] [id number] [address] [place] [address], [place] [address] Dec, 2014 [facility] [address] [id number] [address] [place] [address], [place] [address] Nov, [facility] [address] [id number] [address] [place] [address], [place] [address] Nov, [facility] [address] [id number] [address] [place] [address], [place] [address] Nov, [facility] [address] [id number] [address] [place] [address], [place] [address] Nov, [facility] [address] [id number] [address] [place] [address], [place] [address] Nov, [facility] [address] [id number] [address] [place] [address], [place] [address] Nov, [facility] [address] [id number] [address] [place] [address], [place] [address] Nov, [facility] [address] [id number] [address] [place] [address], [place] [address] Nov, [facility] [address] [id number] [address] [place] [address], [place] [address] Nov, [facility] [address] [id number] [address] [place] [address], [place] [address] Nov, [facility] [address] [id number] [address] [place] [address], [place] [address] Nov, [facility] [address] [id number] [address] [place] [address], [place] [address] Nov, [facility] [address] [id number] [address] [place] [address], [place] [address] Nov, [facility] [address] [id number] [address] [place] [address], [place] [address] Nov, [facility] [address] [id number] [address] [place] [address], [place] [address] Oct, [facility] [address] [id number] [address] [place] [address], [place] [address] Oct, [facility] [address] [id number] [address] [place] [address], [place] [address] Oct, [facility] [address] [id number] [address] [place] [address], [place] [address] Oct, [facility] [address] [id number] [address] [place] [address], [place] [address] Oct, [facility] [address] [id number] [address] [place] [address], [place] [address] Oct, [facility] [address] [id number] [address] [place] [address], [place] [address] Oct, [facility] [address] [id number] [address] [place] [address], [place] [address] Oct, [facility] [address] [id number] [address] [place] [address], [place] [address] Oct, [facility] [address] [id number] [address] [place] [address], [place] [address] Sep, [facility] [address] [id number] [address] [place] [address], [place] [address] Sep, [facility] [address] [id number] [address] [place] [address], [place] [address] Sep, [facility] [address] [id number] [address] [place] [address], [place] [address] Sep, [facility] [address] [id number] [address] [place] [address], [place] [address] Sep, [facility] [address] [id number] [address] [place] [address], [place] [address] Sep, [facility] [address] [id number] [address] [place] [address], [place] [address] Sep, [facility] [address] [id number] [address] [place] [address], [place] [address] Sep, [facility] [address] [id number] [address] [place] [address], [place] [address] Sep, [facility] [address] [id number] [address] [place] [address], [place] [address] Sep, [facility] [address] [id number] [address] [place] [address], [place] [address] Sep, [facility] [address] [id number] [address] [place] [address], [place] [address] Sep, [facility] [address] [id number] [address] [place] [address], [place] [address] Aug, [facility] [address] [id number] [address] [place] [address], [place] [address] Aug, [facility] [address] [id number] [address] [place] [address], [place] [address] Aug, [facility] [address] [id number] [address] [place] [address], [place] [address] Aug, [facility] [address] [id number] [address] [place] [address], [place] [address] Aug, [facility] [address] [id number] [address] [place] [address], [place] [address] Aug, [facility] [address] [id number] [address] [place] [address], [place] [address] Aug, [facility] [address] [id number] [address] [place] [address], [place] [address] Aug, [facility] [address] [id number] [address] [place] [address], [place] [address] 30 Jul, 2013 [facility] [address] [id number] [address] [place] [address], [place] [address] 30 Sep, 2013 [facility] [address] [id number] [address] [place] [address], [place] [address] 30 Sep, 2013 [facility] [address] [id number] [address] [place] [address], [place] [address] 30 Jul, 2013 [facility] [address] [id number] [address] [place] [address], [place] [address] 25 Jul2013 [facility] [address] [id number] [facility] [place] [address] Jul, [facility] [address] [id number] [facility] [place] [address] Jul, [facility] [address] [id number] [facility] [place] [address] Jul, [facility] [address] [id number] [address] [place] [address], [place] [address] Jul, [facility] [address] [id number] [address] [place] [address], [place] [address] Jul, [facility] [address] [id number] [address] [place] [address], [place] [address] Jun, [facility] [address] [id number] [address] [place] [address], [place] [address] Jun, [facility] [address] [id number] [address] [place] [address], [place] [address] Jun, [facility] [address] [id number] [address] [place] [address], [place] [address] Jun, [facility] [address] [id number] [address] [place] [address], [place] [address] Jun, [facility] [address] [id number] [address] [place] [address], [place] [address] Jun, [facility] [address] [id number] [address] [place] [address], [place] [address] Jun, [facility] [address] [id number] [address] [place] [address], [place] [address] Jun, [facility] [address] [id number] [address] [place] [address], [place] [address] Jun, [facility] [address] [id number] [address] [place] [address], [place] [address] Jun, [facility] [address] [id number] [address] [place] [address], [place] [address] Jun, [facility] [address] [id number] [facility] [place] [address] Jun, [facility] [address] [id number] [address] [place] [address], [place] [address] Jun, [facility] [address] [id number] [address] [place] [address], [place] [address] Jun, [facility] [address] [id number] [address] [place] [address], [place] [address] Jun, [facility] [address] [id number] [address] [place] [address], [place] [address] Jun, [facility] [address] [id number] [address] [place] [address], [place] [address] Jun, [facility] [address] [id number] [address] [place] [address], [place] [address] Jun, [facility] [address] [id number] [address] [place] [address], [place] [address] Jun, [facility] [address] [id number] [address] [place] [address], [place] [address] Jun, [facility] [address] [id number] [address] [place] [address], [place] [address] Jun, [facility] [address] [id number] [address] [place] [address], [place] [address] Jun, [facility] [address] [id number] [address] [place] [address], [place] [address] May, [facility] [address] [id number] [address] [place] [address], [place] [address] May, [facility] [address] [id number] [address] [place] [address], [place] [address] May, [facility] [address] [id number] [address] [place] [address], [place] [address] May, [facility] [address] [id number] [facility] [place] [address] May, 2013 [facility] [address] [id number] [facility] [place] [address] May, 2013 [facility] [address] [id number] [facility] [place] [address] May, 2013 [facility] [address] [id number] [address] [place] [address], [place] [address] May, 2013 [facility] [address] [id number] [address] [place] [address], [place] [address] May, 2013 [facility] [address] [id number] [address] [place] [address], [place] [address] May, [facility] [address] [id number] [address] [place] [address], [place] [address] May, [facility] [address] [id number] [address] [place] [address], [place] [address] May, [facility] [address] [id number] [address] [place] [address], [place] [address] May, [facility] [address] [id number] [address] [place] [address], [place] [address] Apr, [facility] [address] [id number] [address] [place] [address], [place] [address] Apr, [facility] [address] [id number] [address] [place] [address], [place] [address] Apr, [facility] [address] [id number] [address] [place] [address], [place] [address] Apr, [facility] [address] [id number] [address] [place] [address], [place] [address] Apr, [facility] [address] [id number] [address] [place] [address], [place] [address] Apr, [facility] [address] [id number] [address] [place] [address], [place] [address] Apr, [facility] [address] [id number] [address] [place] [address], [place] [address] Apr, [facility] [address] [id number] [address] [place] [address], [place] [address] Apr, [facility] [address] [id number] [address] [place] [address], [place] [address] March, [facility] [address] [id number] [address] [place] [address], [place] [address] March, [facility] [address] [id number] [address] [place] [address], [place] [address] March, [facility] [address] [id number] [address] [place] [address], [place] [address] March, [facility] [address] [id number] [address] [place] [address], [place] [address] March, [facility] [address] [id number] [address] [place] [address], [place] [address] March, [facility] [address] [id number] [address] [place] [address], [place] [address] March, [facility] [address] [id number] [address] [place] [address], [place] [address] March, [facility] [address] [id number] [address] [place] [address], [place] [address] March, [facility] [address] [id number] [address] [place] [address], [place] [address] March, [facility] [address] [id number] [address] [place] [address], [place] [address] March, [facility] [address] [id number] [address] [place] [address], [place] [address] March, [facility] [address] [id number] [address] [place] [address], [place] [address] March, [facility] [address] [id number] [address] [place] [address], [place] [address] March, [facility] [address] [id number] [address] [place] [address], [place] [address] March, [facility] [address] [id number] [address] [place] [address], [place] [address] March, [facility] [address] [id number] [address] [place] [address], [place] [address] March, [facility] [address] [id number] [address] [place] [address], [place] [address] March, [facility] [address] [id number] [address] [place] [address], [place] [address] March, [facility] [address] [id number] [address] [place] [address], [place] [address] March, [facility] [address] [id number] [address] [place] [address], [place] [address] Feb, [facility] [address] [id number] [address] [place] [address], [place] [address] Feb, [facility] [address] [id number] [address] [place] [address], [place] [address] Feb, [facility] [address] [id number] [address] [place] [address], [place] [address] Feb, [facility] [address] [id number] [address] [place] [address], [place] [address] Feb, [facility] [address] [id number] [address] [place] [address], [place] [address] Feb, [facility] [address] [id number] [address] [place] [address], [place] [address] Feb, [facility] [address] [id number] [address] [place] [address], [place] [address] Feb, [facility] [address] [id number] [address] [place] [address], [place] [address] Jan, [facility] [address] [id number] [address] [place] [address], [place] [address] Jan, [facility] [address] [id number] [facility] [place] [address] Jan, [facility] [address] [id number] [facility] [place] [address] Jan, [facility] [address] [id number] [address] [place] [address], [place] [address] Jan, [facility] [address] [id number] [address] [place] [address], [place] [address] Jan, [facility] [address] [id number] [address] [place] [address], [place] [address] Jan, [facility] [address] [id number] [address] [place] [address], [place] [address] Jan, [facility] [address] [id number] [address] [place] [address], [place] [address] Jan, [facility] [address] [id number] [address] [place] [address], [place] [address] Jan, [facility] [address] [id number] [address] [place] [address], [place] [address] 27 Dec, 2013 [facility] [address] [id number] [address] [place] [address], [place] [address] Dec, [facility] [address] [id number] [address] [place] [address], [place] [address] Dec, [facility] [address] [id number] [address] [place] [address] [address] 2013 [facility] [address] [id number] [address] [place] [address], [place] [address] 2013 [facility] [address] [id number] [address] [place] [address], [place] [address] 13 Dec, 2013 [facility] [address] [id number] [address] [place] [address], [place] [address] Dec, [facility] [address] [id number] [address] [place] [address], [place] [address] Dec, [facility] [address] [id number] [address] [place] [address], [place] [address] Nov, [facility] [address] [id number] [address] [place] [address], [place] [address] Nov, [facility] [address] [id number] [address] [place] [address], [place] [address] Nov, [facility] [address] [id number] [address] [place] [address], [place] [address] Nov, [facility] [address] [id number] [address] [place] [address], [place] [address] Nov, [facility] [address] [id number] [address] [place] [address], [place] [address] Nov, [facility] [address] [id number] [address] [place] [address], [place] [address] Nov, [facility] [address] [id number] [address] [place] [address], [place] [address] Nov, [facility] [address] [id number] [address] [place] [address], [place] [address] Nov, [facility] [address] [id number] [address] [place] [address], [place] [address] Nov, [facility] [address] [id number] [address] [place] [address], [place] [address] Nov, [facility] [address] [id number] [address] [place] [address], [place] [address] Nov, [facility] [address] [id number] [address] [place] [address], [place] [address] Nov, [facility] [address] [id number] [address] [place] [address], [place] [address] Oct, [facility] [address] [id number] [address] [place] [address], [place] [address] 30 Oct, 2013 [facility] [address] [id number] [address] [place] [address], [place] [address] Oct, [facility] [address] [id number] [address] [place] [address], [place] [address] Oct, [facility] [address] [id number] [address] [place] [address], [place] [address] Oct, [facility] [address] [id number] [address] [place] [address], [place] [address] Oct, [facility] [address] [id number] [address] [place] [address], [place] [address] Oct, [facility] [address] [id number] [address] [place] [address], [place] [address] 18 Oct, 2013 [facility] [address] [id number] [address] [place] [address], [place] [address] Oct, [facility] [address] [id number] [address] [place] [address], [place] [address] 17 Oct, 2013 [facility] [address] [id number] [address] [place] [address], [place] [address] Oct, [facility] [address] [id number] [address] [place] [address], [place] [address] Oct, [facility] [address] [id number] [address] [place] [address], [place] [address] 02 Oct, 2013 [facility] [address] [id number] [address] [place] [address], [place] [address] 02 Oct, 2013 [facility] [address] [id number] [address] [place] [address], [place] [address] 14 Sep, 2013 [facility] [address] [id number] [address] [place] [address], [place] [address] 14 Sep, 2013 [facility] [address] [id number] [address] [place] [address], [place] [address] Sep, [facility] [address] [id number] [address] [place] [address], [place] [address] Sep, [facility] [address] [id number] [address] [place] [address], [place] [address] Sep, [facility] [address] [id number] [address] [place] [address], [place] [address] Sep, [facility] [address] [id number] [address] [place] [address], [place] [address] Sep, [facility] [address] [id number] [address] [place] [address], [place] [address] Sep, [facility] [address] [id number] [address] [place] [address], [place] [address] Sep, [facility] [address] [id number] [address] [place] [address], [place] [address] Sep, [facility] [address] [id number] [address] [place] [address] Aug, [facility] [address] [id number] [address] [place] [address], [place] [address] Aug, [facility] [address] [id number] [address] [place] [address] Aug, [facility] [address] [id number] [address] [place] [address] Aug, [facility] [address] [id number] [address] [place] [address] Aug, [facility] [address] [id number] [address] [place] [address] Aug, [facility] [address] [id number] [address] [place] [address] Aug, [facility] [address] [id number] [address] [place] [address] Aug, [facility] [address] [id number] [address] [place] [address], [place] [address] 22 Aug, 2012 [facility] [address] [id number] [address] [place] [address], [place] [address] 22 Aug, 2012 [facility] [address] [id number] [address] [place] [address], [place] [address] 18 Aug, 2012 [facility] [address] [id number] [address] [place] [address], [place] [address] 18 Aug, 2012 [facility] [address] [id number] [address] [place] [address], [place] [address] 18 Aug, 2012 [facility] [address] [id number] [address] [place] [address], [place] [address] 18 Aug, 2012 [facility] [address] [id number] [address] [place] [address], [place] [address] 17 Aug, 2012 [facility] [address] [id number] [address] [place] [address], [place] [address] 14 Aug, 2013 [facility] [address] [id number] [address] [place] [address], [place] [address] 14 Aug, 2013 [facility] [address] [id number] [address] [place] [address], [place] [address] 01 Aug, 2013 [facility] [address] [id number] [address] [place] [address], [place] [address] 20 Jul, 2012 [facility] [address] [id number] [address] [place] [address], [place] [address] 19 Jul, 2012 [facility] [address] [id number] [address] [place] [address], [place] [address] 18 Jul, 2012 [facility] [address] [id number] [address] [place] [address], [place] [address] 11 Jul, 2012 [facility] [address] [id number] [address] [place] [address], [place] [address] 11 Jul, 2012 [facility] [address] [id number] [address] [place] [address], [place] [address] 28 Jun, 2013 [facility] [address] [id number] [facility] [place] [address] Jun, [facility] [address] [id number] [facility] [place] [address] Jun, [facility] [address] [id number] [facility] [place] [address] Jun, [facility] [address] [id number] [address] [place] [address], [place] [address] Jun, [facility] [address] [id number] [address] [place] [address], [place] [address] Jun, [facility] [address] [id number] [address] [place] [address], [place] [address] Jun, [facility] [address] [id number] [address] [place] [address], [place] [address] Jun, [facility] [address] [id number] [address] [place] [address], [place] [address] Jun, [facility] [address] [id number] [address] [place] [address], [place] [address] Jun, [facility] [address] [id number] [address] [place] [address], [place] [address] May, [facility] [address] [id number] [address] [place] [address], [place] [address] May, [facility] [address] [id number] [address] [place] [address], [place] [address] May, [facility] [address] [id number] [address] [place] [address], [place] [address] May, [facility] [address] [id number] [address] [place] [address], [place] [address] May, [facility] [address] [id number] [address] [place] [address], [place] [address] May, [facility] [address] [id number] [address] [place] [address], [place] [address] May, [facility] [address] [id number] [address] [place] [address], [place] [address] May, [facility] [address] [id number] [address] [place] [address], [place] [address] May, [facility] [address] [id number] [address] [place] [address], [place] [address] Apr, [facility] [address] [id number] [address] [place] [address], [place] [address] Apr, [facility] [address] [id number] [address] [place] [address], [place] [address] Apr, [facility] [address] [id number] [address] [place] [address], [place] [address] Apr, [facility] [address] [id number] [address] [place] [address], [place] [address] Apr, [facility] [address] [id number] [address] [place] [address], [place] [address] Apr, [facility] [address] [id number] [address] [place] [address], [place] [address] Apr, [facility] [address] [id number] [address] [place] [address], [place] [address] March, [facility] [address] [id number] [address] [place] [address], [place] [address] Feb, [facility] [address] [id number] [address] [place] [address], [place] [address] Feb, [facility] [address] [id number] [address] [place] [address], [place] [address] Feb, [facility] [address] [id number] [address] [place] [address], [place] [address] Jan, [facility] [address] [id number] [address] [place] [address], [place] [address] Jan, [facility] [address] [id number] [address] [place] [address], [place] [address] 19 Jan, 2013 [facility] [address] [id number] [address] [place] [address], [place] [address] 14 Jan, 2013 [facility] [address] [id number] [address] [place] [address], [place] [address] 12 Jan, 2013 [facility] [address] [id number] [address] [place] [address], [place] [address] 08 Jan, 2013 [facility] [address] [id number] [address] [place] [address], [place] [address] 07 Jan, 2013 [facility] [address] [id number] [address] [place] [address], [place] [address] 04 Jan, 2013 [facility] [address] [id number] [address] [place] [address], [place] [address] 28 Dec, 2012 [facility] [address] [id number] [address] [place] [address], [place] [address] 25 Dec, 2012 [facility] [address] [id number] [address] [place] [address], [place] [address] 13 Dec, 2012 [facility] [address] [id number] [address] [place] [address], [place] [address] 11 Dec, 2012 [facility] [address] [id number] [address] [place] [address], [place] [address] 07 Dec, 2012 [facility] [address] [id number] [address] [place] [address], [place] [address] 06 Dec, 2012 [facility] [address] [id number] [address] [place] [address], [place] [address] 05 Dec, 2012 [facility] [address] [id number] [address] [place] [address], [place] [address] 31 Nov, 2012 [facility] [address] [id number] [address] [place] [address], [place] [address] 24 Nov, 2012 [facility] [address] [id number] [address] [place] [address], [place] [address] 18 Nov, 2012 [facility] [address] [id number] [address] [place] [address], [place] [address] 15 Nov, 2012 [facility] [address] [id number] [address] [place] [address], [place] [address] 10 Nov, 2012 [facility] [address] [id number] [address] [place] [address], [place] [address] Nov, [facility] [address] [id number] [address] [place] [address], [place] [address] Nov, [facility] [address] [id number] [address] [place] [address], [place] [address] Oct, [facility] [address] [id number] [address] [place] [address], [place] [address] Oct, [facility] [address] [id number] [address] [place] [address], [place] [address] Oct, [facility] [address] [id number] [address] [place] [address], [place] [address] Oct, [facility] [address] [id number] [address] [place] [address], [place] [address] Oct, [facility] [address] [id number] [address] [place] [address], [place] [address] 17 Oct, 2012 [facility] [address] [id number] [address] [place] [address], [place] [address] 07 Oct, 2012 [facility] [address] [id number] [address] [place] [address], [place] [address] 07 Oct, 2012 [facility] [address] [id number] [address] [place] [address], [place] [address] 05 Oct, 2012 [facility] [address] [id number] [address] [place] [address], [place] [address] 05 Oct, 2012 [facility] [address] [id number] [address] [place] [address], [place] [address] 04 Oct, 2012 [facility] [address] [id number] [address] [place] [address], [place] [address] Oct, [facility] [address] [id number] [address] [place] [address], [place] [address] Sep, [facility] [address] [id number] [address] [place] [address], [place] [address] Sep, [facility] [address] [id number] [address] [place] [address], [place] [address] Sep, [facility] [address] [id number] [address] [place] [address], [place] [address] Sep, [facility] [address] [id number] [address] [place] [address], [place] [address] Sep, [facility] [address] [id number] [address] [place] [address], [place] [address] Sep, [facility] [address] [id number] [address] [place] [address], [place] [address] Sep, [facility] [address] [id number] [address] [place] [address], [place] [address] Sep, [facility] [address] [id number] [address] [place] [address], [place] [address] Sep, [facility] [address] [id number] [address] [place] [address], [place] [address] Sep, [facility] [address] [id number] [address] [place] [address], [place] [address] Sep, [facility] [address] [id number] [address] [place] [address], [place] [address] Aug, [facility] [address] [id number] [address] [place] [address], [place] [address] Aug, [facility] [address] [id number] [address] [place] [address], [place] [address] Aug, [facility] [address] [id number] [address] [place] [address], [place] [address] Aug, [facility] [address] [id number] [address] [place] [address], [place] [address] Aug, [facility] [address] [id number] [address] [place] [address], [place] [address] Aug, [facility] [address] [id number] [address] [place] [address], [place] [address] Aug, [facility] [address] [id number] [address] [place] [address], [place] [address] Aug, [facility] [address] [id number] [address] [place] [address], [place] [address] Aug, [facility] [address] [id number] [address] [place] [address], [place] [address] Aug, [facility] [address] [id number] [address] [place] [address], [place] [address] Jul, [facility] [address] [id number] [address] [place] [address], [place] [address] 20 Jul, 2012 [facility] [address] [id number] [address] [place] [address], [place] [address] Jul, [facility] [address] [id number] [address] [place] [address], [place] [address] 06 Jul, 2012 [facility] [address] [id number] [address] [place] [address], [place] [address] 30 Jun, 2012 [facility] [address] [id number] [address] [place] [address], [place] [address] Jun, [facility] [address] [id number] [address] [place] [address], [place] [address] Jun, [facility] [address] [id number] [address] [place] [address], [place] [address] Jun, [facility] [address] [id number] [address] [place] [address], [place] [address] Jun, [facility] [address] [id number] [address] [place] [address], [place] [address] Jun, [facility] [address] [id number] [address] [place] [address], [place] [address] Jun, [facility] [address] [id number] [address] [place] [address], [place] [address] May, [facility] [address] [id number] [address] [place] [address], [place] [address] May, [facility] [address] [id number] [address] [place] [address], [place] [address] May, [facility] [address] [id number] [address] [place] [address], [place] [address] May, [facility] [address] [id number] [address] [place] [address], [place] [address] May, [facility] [address] [id number] [address] [place] [address], [place] [address] Apr, [facility] [address] [id number] [address] [place] [address], [place] [address] Apr, [facility] [address] [id number] [address] [place] [address], [place] [address] Apr, [facility] [address] [id number] [address] [place] [address], [place] [address] Apr, [facility] [address] [id number] [address] [place] [address], [place] [address] Apr, [facility] [address] [id number] [address] [place] [address], [place] [address] March, [facility] [address] [id number] [address] [place] [address], [place] [address] March, [facility] [address] [id number] [address] [place] [address], [place] [address] March, [facility] [address] [id number] [address] [place] [address], [place] [address] March, [facility] [address] [id number] [address] [place] [address], [place] [address] March, [facility] [address] [id number] [address] [place] [address], [place] [address] March, [facility] [address] [id number] [address] [place] [address], [place] [address] March, [facility] [address] [id number] [address] [place] [address], [place] [address] March, [facility] [address] [id number] [address] [place] [address], [place] [address] March, [facility] [address] [id number] [address] [place] [address], [place] [address] March, [facility] [address] [id number] [address] [place] [address], [place] [address] Feb, [facility] [address] [id number] [address] [place] [address], [place] [address] Feb, [facility] [address] [id number] [address] [place] [address], [place] [address] Feb, [facility] [address] [id number] [address] [place] [address], [place] [address] Feb, [facility] [address] [id number] [address] [place] [address], [place] [address] Feb, [facility] [address] [id number] [address] [place] [address], [place] [address] Feb, [facility] [address] [id number] [address] [place] [address], [place] [address] Feb, [facility] [address] [id number] [address] [place] [address], [place] [address] Feb, [facility] [address] [id number] [address] [place] [address], [place] [address] Feb, [facility] [address] [id number] [address] [place] [address], [place] [address] Jan, [facility] [address] [id number] [facility] [place] [address] 07 Jan, 2012 [facility] [address] [id number] [address] [place] [address], [place] [address] 05 Jan, 2012 [facility] [address] [id number] [address] [place] [address], [place] [address] 02 Jan, 2012 [facility] [address] [id number] [address] [place] [address], [place] [address] Dec, [facility] [address] [id number] [address] [place] [address], [place] [address] Dec, [facility] [address] [id number] [address] [place] [address], [place] [address] Nov, [facility] [address] [id number] [address] [place] [address], [place] [address] Nov, [facility] [address] [id number] [address] [place] [address], [place] [address] Nov, [facility] [address] [id number] [address] [place] [address], [place] [address] Nov, [facility] [address] [id number] [address] [place] [address], [place] [address] Nov, [facility] [address] [id number] [address] [place] [address], [place] [address] Oct, [facility] [address] [id number] [address] [place] [address], [place] [address] Oct, [facility] [address] [id number] [address] [place] [address], [place] [address] Oct, [facility] [address] [id number] [address] [place] [address], [place] [address] Oct, [facility] [address] [id number] [address] [place] [address], [place] [address] Oct, [facility] [address] [id number] [address] [place] [address] Oct, [facility] [address] [facility] [id number] [address] [place] [address] Oct, [facility] [address] [facility] [id number] [address] [place] [address] Oct, [facility] [address] [facility] [id number] [address] [place] [address] Sep, IMMUNIZATIONS No Known Immunizations SOCIAL HISTORY Never Assessed REASON FOR VISIT PLAN OF CARE VITAL SIGNS MEDICATIONS Unknown Medications RESULTS No Results PROCEDURES No Known procedures INSTRUCTIONS MEDICATIONS ADMINISTERED No Known Medications MEDICAL (GENERAL) HISTORY Type Description Date Medical History 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
--- OUTSIDE RECORDS SUMMARY | 2020-06-18 15:24 | XMS REPORT ---
Author Author Sanjuanita Sanchez [facility] Address [address] [place] [address] Care Team Providers Care Children'S Tutor Name Role Phone Laura MARIA DE JESUS Unavailable PROBLEMS Type Condition ICD9-CM Code TUB06-ZG Code Onset Dates Condition S tatus SNOMED Code Problem Coronary artery disease I25.10 Active 83729049 Problem Hypertension I10 Active 8735204 3 Problem Other chronic pain G89.29 Active 8 3853221 Problem Hyperlipidemia E78.5 Active 82457 004 Problem Type 2 diabetes mellitus wit hout complication, without long-term current use of insulin E11.9 Active 491670348 Problem Low back pain M54.5 Active 754345 009 Problem Pharyngeal dysphagia R13.13 Active 55028593340070 Problem Anxiety F41.9 Active 16115622 Problem Peripheral vascular disease I73.9 Ac tive 881930949 Problem Suprapubic catheter Z93.59 Active 754549905 Problem Reactive depression F32.9 Active 02351328 Problem Neurogenic bladder N31.9 Active 3 65456534 Problem Ventral hernia without obstruction or gangrene K43 .9 Active 253407470 Problem Insomnia G47.00 Active 510453819 Problem Paroxysmal atrial fibrillation I48.0 Active 889437031 Problem Postmenopausal atrophic vaginitis N95.2 Active 74600206 Problem Encounter for suprapubic catheter care Z43.5 Active [id number] ALLERGIES No Information ENCOUNTERS Encounter Location Date Diagnosis Via [facility] [address] [place] [id number] Jun, [facility] [address] [facility] [id number] [address] [place] [address] Apr, [facility] [address] [place] [id number] Apr, Strain of right shoulder, subsequent enc ounter S46.911D [facility] [address] [id number] [address] [place] [id number] 14 Apr, 2019 Strain of right shoulder, scherer bsequent encounter S46.911D and Anxiety F41.9 Via [facility] [address] [place] [id number] 13 Apr, 2019 Type 2 diabetes mellitus without complic ation, without long-term current use of insulin E11.9 and Neurogenic bladder N31.9 Via [facility] [address] [place] [id number] 11 Apr, 2019 Strain of right shoulder, subsequent enc ounter S46.911D ; History of GI bleed Z87.19 ; Neurogenic bladder N31.9 and Reactive depression F32.9 [place] [address] [id number] [address] [place] [address] 10 Apr, 2019 Acute pain of left shoulder M25.512 [place] [address] [id number] [address] [place] [address] Apr, [place] [address] [id number] [address] [place] [address] Apr, Anxiety F41.9 and 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 [facility] [address] [place] [id number] March, Gastrointestinal hemorrhage associated w ith acute gastritis K29.01 [place] [address] [id number] [address] [place] [address] March, Via [facility] [address] [place] [id number] March, Bronchitis J40 [place] [address] [id number] [address] [place] [address] March, Cough R05 [place] [address] [id number] [address] [place] [address] March, Other chronic pain G89.29 [place] [address] [id number] [address] [place] [address] March, Anxiety F41.9 [place] [address] [id number] [address] [place] [address] March, [facility] [address] [id number] [address] [place] [address] Feb, Other chronic pain G89.29 [facility] [address] [id number] [address] [place] [address] Feb, Anxiety F41.9 [facility] [address] [id number] [address] [place] [address] Feb, Other chronic pain G89.29 [facility] [address] [place] [id number] Feb, Neurogenic bladder N31.9 and Suprapubic catheter Z93.59 [facility] [address] [id number] [address] [place] [address] Jan, Anxiety F41.9 [facility] [address] [id number] [address] [place] [address] Dec, Anxiety F41.9 [facility] [address] [id number] [address] [place] [address] Dec, Other chronic pain G89.29 an d Anxiety F41.9 [facility] [address] [id number] [address] [place] [address] Dec, [facility] [address] [place] [id number] Dec, Neurogenic bladder N31.9 and Suprapubic catheter Z93.59 [facility] [address] [id number] [address] [place] [address] Nov, Other chronic pain G89.29 an d Anxiety F41.9 [facility] [address] [id number] [address] [place] [address] Nov, [facility] [address] [place] [id number] Nov, Suprapubic catheter Z93.59 [facility] [address] [id number] [address] [place] [address] 31 Oct, 2018 Other chronic pain G89.29 an d Anxiety F41.9 [facility] [address] [id number] [address] [place] [address] Oct, [facility] [address] [id number] [address] [place] [address] Oct, Suprapubic catheter Z93.59 [facility] [address] [id number] [address] [place] [address] Oct, Via [employer] [facility] [address] [place] [id number] Oct, [facility] [address] [id number] [address] [place] [address] 05 Oct, 2018 Anxiety F41.9 [facility] [address] [id number] [address] [place] [address] Oct, Anxiety F41.9 [facility] [address] [place] [id number] Oct, Other chronic pain G89.29 [facility] [address] [id number] [address] [place] [address] 14 Sep, 2018 Other chronic pain G89.29 Via [facility] [address] [place] [id number] Sep, Suprapubic catheter Z93.59 and Cervicalg ia M54.2 [facility] [address] [id number] [address] [place] [address] Sep, [facility] [address] [id number] [address] [place] [address] Sep, [facility] [address] [id number] [address] [place] [address] Sep, Via [facility] [address] [place] [id number] Aug, Cystitis N30.90 [facility] [address] [id number] [address] [place] [address] Aug, [facility] [address] [id number] [address] [place] [address] Aug, Other chronic pain G89.29 [facility] [address] [id number] [address] [place] [address] Aug, Via [facility] [address] [place] [id number] Aug, Encounter for suprapubic catheter care Z 43.5 [place] [address] [id number] [address] [place] [address] Jul, [facility] [address] [place] [id number] Jul, [facility] [address] [id number] [address] [place] [address] Jul, Other chronic pain G89.29 [facility] [address] [id number] [address] [place] [address] Jul, [facility] [address] [id number] [address] [place] [address] Jul, [facility] [address] [place] [id number] Jun, Postmenopausal atrophic vaginitis N95.2 [facility] [address] [id number] [address] [place] [address] Jun, Other chronic pain G89.29 [facility] [address] [id number] [address] [place] [address] Jun, Via [facility] [address] [place] [id number] May, Anxiety F41.9 ; Type 2 diabetes mellitus without complication, without long-term current use of insulin E11.9 ; Hypertension I10 ; Low back pain M54.5 ; Paroxysmal atrial fibrillation I48.0 and 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 [place] [address] [id number] [address] [place] [address] May, Other chronic pain G89.29 Via [facility] [address] [place] [id number] May, Low back pain M54.5 [facility] [address] [id number] [address] [place] [address] May, [facility] [address] [id number] [address] [place] [address] Apr, Other chronic pain G89.29 [facility] [address] [id number] [address] [place] [address] Apr, [facility] [address] [id number] [address] [place] [address] Apr, Via [facility] [address] [place] [id number] Apr, Closed compression fracture of L3 lumbar vertebra with routine healing, subsequent encounter S32.030D [facility] [address] [place] [id number] 14 Apr, 2018 Low back pain M54.5 [facility] [address] [place] [id number] Apr, Coccydynia M53.3 [facility] [address] [id number] [address] [place] [address] March, [facility] [address] [id number] [address] [place] [address] March, Other chronic pain G89.29 [facility] [address] [id number] [address] [place] [address] March, [facility] [address] [id number] [address] [place] [address] March, [facility] [address] [id number] [address] [place] [address] Feb, [facility] [address] [id number] [address] [place] [address] Feb, Other chronic pain G89.29 Via [facility] [address] [place] [id number] Feb, Other chronic pain G89.29 and Anxiety F4 1.9 [facility] [address] [id number] [address] [place] [address] Feb, [facility] [address] [id number] [address] [place] [address] Jan, [facility] [address] [id number] [address] [place] [address] Jan, [facility] [address] [facility] [id number] [address] [place] [address] Jan, [facility] [address] [facility] [id number] [address] [place] [address] Jan, [facility] [address] [facility] [id number] [address] [place] [address] Dec, Via [facility] [address] [place] [id number] Dec, Peripheral vascular disease I73.9 ; 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 ; Other chronic pain G89.29 ; Anxiety F41.9 ; Reactive depression F32.9 ; Insomnia G47.00 and Type 2 diabetes mellitus without complication, without long-term current use of insulin E11.9 [facility] [address] [id number] [place] [address] Nov, [facility] [address] [id number] [place] [id number] Nov, Anxiety F41.9 [facility] [address] [id number] [address] [place] [address] Nov, [facility] [address] [id number] [place] [id number] Nov, Anxiety F41.9 Via [facility] [address] [place] [id number] Nov, Status post surgery Z98.890 ; Confused R 41.0 ; Anxiety F41.9 and Other chronic pain G89.29 [facility] [address] [id number] [place] [id number] Nov, Other chronic pain G89.29 [facility] [address] [facility] [id number] [address] [place] [address] Oct, [facility] [address] [id number] [place] [id number] Oct, Other chronic pain G89.29 [facility] [address] [facility] [id number] [address] [place] [address] Oct, Anxiety F41.9 [place] [address] [id number] [place] [id number] Sep, Other chronic pain G89.29 [facility] [address] [id number] [place] [id number] Sep, Via [facility] [address] [place] [id number] Aug, Dysuria R30.0 and Anxiety F41.9 [facility] [address] [facility] [id number] [address] [place] [address] Aug, [facility] [address] [id number] [place] [id number] Aug, Other chronic pain G89.29 [facility] [address] [facility] [id number] [address] [place] [address] Jul, Other chronic pain G89.29 [facility] [address] [id number] [place] [id number] Jun, [facility] [address] [id number] [place] [id number] Jun, Other chronic pain G89.29 [facility] [address] [facility] [id number] [address] [place] [address] Jun, [facility] [address] [facility] [id number] [address] [place] [address] May, Other chronic pain G89.29 [facility] [address] [id number] [address] [place] [address] Apr, Other chronic pain G89.29 [facility] [address] [place] [id number] Apr, Reactive depression F32.9 and Pharyngeal dysphagia R13.13 [facility] [address] [id number] [address] [place] [address] Apr, Urinary tract infection with out hematuria, site unspecified N39.0 [facility] [address] [id number] [address] [place] [address] March, Other chronic pain G89.29 [facility] [address] [facility] [id number] [address] [place] [address] Feb, Other chronic pain G89.29 [facility] [address] [id number] [address] [place] [address] Feb, [facility] [address] [id number] [place] [id number] Feb, [facility] [address] [place] [id number] Feb, Dysuria R30.0 and Ventral hernia without obstruction or gangrene K43.9 [facility] [address] [id number] [address] [place] [address] Jan, Other chronic pain G89.29 [facility] [address] [id number] [place] [id number] Dec, Other chronic pain G89.29 [facility] [address] [id number] [address] [place] [address] Nov, Other chronic pain G89.29 [facility] [address] [place] [id number] Nov, Lymphadenitis I88.9 [facility] [address] [id number] [address] [place] [address] Nov, Other chronic pain G89.29 [facility] [address] [id number] [address] [place] [address] Nov, [facility] [address] [id number] [place] [id number] Nov, Other chronic pain G89.29 [facility] [address] [place] [id number] Oct, Low back pain M54.5 ; Hypertension I10 a nd Type 2 diabetes mellitus without complication, without long-term current use of insulin E11.9 [facility] [address] [id number] [address] [place] [address] Oct, [facility] [address] [id number] [address] [place] [address] Oct, [facility] [address] [id number] [address] [place] [address] Oct, [facility] [address] [id number] [address] [place] [address] Oct, [facility] [address] [id number] [address] [place] [address] Sep, [facility] [address] [id number] [address] [place] [address] Sep, [facility] [address] [id number] [address] [place] [address] Aug, Other chronic pain G89.29 [facility] [address] [id number] [address] [place] [address] Jul, [facility] [address] [id number] [address] [place] [address] Jul, [facility] [address] [id number] [address] [place] [address] Jul, [facility] [address] [id number] [address] [place] [address] Jun, [facility] [address] [id number] [address] [place] [address] Jun, [facility] [address] [place] [id number] Jun, Low back pain M54.5 ; Other chronic pain G89.29 and Coronary artery disease I25.10 [facility] [address] [id number] [address] [place] [address] Jun, [facility] [address] [id number] [address] [place] [address] May, [facility] [address] [id number] [address] [place] [address] May, [facility] [address] [id number] [address] [place] [address] May, Other chronic pain G89.29 [facility] [address] [id number] [address] [place] [address] May, [facility] [address] [id number] [address] [place] [address] Apr, [facility] [address] [id number] [address] [place] [address] Apr, Acute cystitis without hemat uria N30.00 [facility] [address] [id number] [address] [place] [address] Apr, Acute cystitis without hemat uria N30.00 ; Coronary artery disease I25.10 ; Low back pain M54.5 and Other chronic pain G89.29 [facility] [address] [id number] [address] [place] [address] Apr, Other chronic pain G89.29 [facility] [address] [id number] [address] [place] [id number] March, Other chronic pain G89.29 [facility] [address] [id number] [address] [place] [address] 18 Feb, 2016 [facility] [address] [id number] [address] [place] [address] Feb, Arthritis M19.90 [facility] [address] [id number] [address] [place] [address] Feb, [facility] [address] [id number] [address] [place] [address] 30 Jan, 2016 [facility] [address] [id number] [address] [place] [address] Jan, [facility] [address] [id number] [address] [place] [address] Jan, Other chronic pain G89.29 [facility] [address] [facility] [id number] [address] [place] [address] Jan, Hypertension I10 ; Coronary artery disease I25.10 and Insomnia G47.00 [facility] [address] [id number] [address] [place] [address] Jan, [facility] [address] [facility] [id number] [address] [place] [address] Dec, Right hip pain M25.551 [facility] [address] [id number] [address] [place] [address] Dec, [facility] [address] [id number] [address] [place] [address] Dec, [facility] [address] [id number] [address] [place] [address] Dec, [facility] [address] [facility] [id number] [address] [place] [address] Dec, Other chronic pain G89.29 [facility] [address] [facility] [id number] [address] [place] [address] Dec, [facility] [address] [id number] [address] [place] [address] Nov, [facility] [address] [id number] [address] [place] [address] Nov, Other chronic pain G89.29 [facility] [address] [id number] [address] [place] [id number] Nov, Right hip pain M25.551 and C oronary artery disease I25.10 [facility] [address] [id number] [address] [place] [id number] Nov, Other chronic pain G89.29 [facility] [address] [id number] [address] [place] [id number] Oct, [facility] [address] [facility] [id number] [address] [place] [id number] Oct, [facility] [address] [id number] [address] [place] [id number] Sep, [facility] [address] [id number] [address] [place] [id number] Sep, [facility] [address] [facility] [id number] [address] [place] [id number] Aug, [facility] [address] [facility] [id number] [address] [place] [id number] Aug, Hypertension I10 ; Coronary artery disease I25.10 and Arthritis M19.90 [facility] [address] [id number] [address] [place] [id number] Jun, [facility] [address] [facility] [id number] [address] [place] [id number] Jun, Essential hypertension, jayson gn 401.1 ; Other chronic pain 338.29 and Chronic airway obstruction, not elsewhere classified 496 [facility] [address] [facility] [id number] [address] [place] [id number] Jun, [facility] [address] [id number] [address] [place] [address], [place] [id number] Jun, [facility] [address] [id number] [address] [place] [address], [place] [id number] Jun, [facility] [address] [id number] [address] [place] [address], [place] [id number] May, [facility] [address] [id number] [address] [place] [address], [place] [phone] May, [facility] [address] [id number] [address] [place] [address], [place] [id number] Apr, [facility] [address] [id number] [address] [place] [address], [place] [id number] Apr, [facility] [address] [id number] [address] [place] [address], [place] [id number] Apr, [facility] [address] [id number] [address] [place] [address], [place] [id number] March, [facility] [address] [id number] [address] [place] [address], [place] [id number] March, [facility] [address] [id number] [address] [place] [address], [place] [id number] March, [facility] [address] [id number] [address] [place] [address], [place] [id number] March, [facility] [address] [id number] [address] [place] [address], [place] [address] March, Sialadenitis 527.2 [facility] [address] [id number] [address] [place] [address], [place] [id number] Feb, [facility] [address] [address] [id number] [address] [place] [address], [place] [address] Feb, [facility] [address] [id number] [address] [place] [address], [place] [address] Feb, [facility] [address] [id number] [address] [place] [address], [place] [address] 14 Feb, 2015 [facility] [address] [id number] [address] [place] [address], [place] [address] Feb, [facility] [address] [id number] [address] [place] [address], [place] [address] Jan, [facility] [address] [id number] [address] [place] [address], [place] [address] Jan, [facility] [address] [id number] [address] [place] [id number] Jan, [facility] [address] [id number] [address] [place] [address], [place] [address] Jan, [facility] [address] [id number] [address] [place] [address], [place] [address] Jan, [facility] [address] [id number] [address] [place] [address], [place] [address] Jan, [facility] [address] [id number] [address] [place] [address], [place] [address] Dec, [facility] [address] [id number] [address] [place] [address], [place] [address] Dec, [facility] [address] [id number] [address] [place] [address], [place] [address] Dec, [facility] [address] [id number] [address] [place] [address], [place] [address] Dec, 2014 [facility] [address] [id number] [address] [place] [id number] Dec, [facility] [address] [id number] [address] [place] [address], [place] [address] Dec, [facility] [address] [id number] [address] [place] [address], [place] [address] Nov, [facility] [address] [id number] [address] [place] [address] Nov, [facility] [address] [id number] [address] [place] [address], [place] [address] Nov, [facility] [address] [id number] [address] [place] [address], [place] [address] Nov, [facility] [address] [id number] [address] [place] [address], [place] [address] Nov, [facility] [address] [id number] [address] [place] [address], [place] [address] Nov, [facility] [address] [id number] [address] [place] [address], [place] [address] Nov, [facility] [address] [id number] [address] [place] [address], [place] [address] Nov, [facility] [address] [id number] [address] [place] [address], [place] [address] Nov, [facility] [address] [id number] [address] [place] [address], [place] [address] Nov, [facility] [address] [id number] [address] [place] [address], [place] [address] Nov, [facility] [address] [id number] [address] [place] [address], [place] [address] Nov, [facility] [address] [id number] [address] [place] [address], [place] [address] Nov, [facility] [address] [id number] [address] [place] [address], [place] [address] Nov, [facility] [address] [id number] [address] [place] [address], [place] [address] Oct, [facility] [address] [id number] [address] [place] [address], [place] [address] Oct, [facility] [address] [id number] [address] [place] [address], [place] [address] Oct, [facility] [address] [id number] [address] [place] [address], [place] [address] 18 Oct, 2014 [facility] [address] [id number] [address] [place] [address], [place] [address] 18 Oct, 2014 [facility] [address] [id number] [address] [place] [address], [place] [address] Oct, [facility] [address] [id number] [address] [place] [address], [place] [address] Oct, [facility] [address] [id number] [address] [place] [address], [place] [address] Oct, [facility] [address] [id number] [address] [place] [address], [place] [address] Oct, [facility] [address] [id number] [address] [place] [address], [place] [address] Sep, [facility] [address] [id number] [address] [place] [address], [place] [address] Sep, [facility] [address] [id number] [address] [place] [address], [place] [address] Sep, [facility] [address] [id number] [address] [place] [address], [place] [address] Sep, [facility] [address] [id number] [address] [place] [address], [place] [address] Sep, [facility] [address] [id number] [address] [place] [address], [place] [address] Sep, [facility] [address] [id number] [address] [place] [address], [place] [address] Sep, [facility] [address] [id number] [address] [place] [address], [place] [address] Sep, [facility] [address] [id number] [address] [place] [address], [place] [address] Sep, [facility] [address] [id number] [address] [place] [address], [place] [address] Sep, [facility] [address] [id number] [address] [place] [address], [place] [address] Sep, [facility] [address] [id number] [address] [place] [address], [place] [address] Sep, [facility] [address] [id number] [address] [place] [address], [place] [address] 30 Aug, 2014 [facility] [address] [id number] [address] [place] [address], [place] [address] Aug, [facility] [address] [id number] [address] [place] [address], [place] [address] Aug, [facility] [address] [id number] [address] [place] [address], [place] [address] Aug, [facility] [address] [id number] [address] [place] [address], [place] [address] Aug, [facility] [address] [id number] [address] [place] [address], [place] [address] Aug, [facility] [address] [id number] [address] [place] [address], [place] [address] Aug, [facility] [address] [id number] [address] [place] [address], [place] [address] 17 Aug, 2014 [facility] [address] [id number] [address] [place] [address], [place] [address] 30 Jul, 2013 [facility] [address] [id number] [address] [place] [address], [place] [address] 30 Sep, 2013 [facility] [address] [id number] [address] [place] [address], [place] [address] 30 Sep, 2013 [facility] [address] [id number] [address] [place] [address], [place] [address] 30 Sep, 2013 [facility] [address] [id number] [address] [place] [address], [place] [address] 25 Jul, 2013 [facility] [address] [id number] [address] [place] [address], [place] [address] Jul, [facility] [address] [id number] [address] [place] [address], [place] [address] Jul, [facility] [address] [id number] [address] [place] [address], [place] [address] Jul, [facility] [address] [id number] [address] [place] [address], [place] [address] Jul, [facility] [address] [id number] [address] [place] [address], [place] [address] Jul, [facility] [address] [id number] [address] [place] [address], [place] [address] Jun, [facility] [address] [id number] [address] [place] [address], [place] [address] Jun, [facility] [address] [id number] [address] [place] [address], [place] [address] Jun, [facility] [address] [id number] [address] [place] [address], [place] [address] Jun, [facility] [address] [id number] [address] [place] [address], [place] [address] Jun, [facility] [address] [id number] [address] [place] [address], [place] [address] Jun, [facility] [address] [id number] [address] [place] [address], [place] [address] Jun, [facility] [address] [id number] [address] [place] [address], [place] [address] Jun, [facility] [address] [id number] [address] [place] [address], [place] [address] Jun, [facility] [address] [id number] [address] [place] [address], [place] [address] Jun, [facility] [address] [id number] [address] [place] [address], [place] [address] Jun, [facility] [address] [id number] [address] [place] [address], [place] [address] Jun, [facility] [address] [id number] [address] [place] [address], [place] [address] Jun, [facility] [address] [id number] [address] [place] [address], [place] [address] Jun, [facility] [address] [id number] [address] [place] [address], [place] [address] Jun, [facility] [address] [id number] [address] [place] [address], [place] [address] Jun, [facility] [address] [id number] [address] [place] [address], [place] [address] Jun, [facility] [address] [id number] [address] [place] [address], [place] [address] Jun, [facility] [address] [id number] [address] [place] [address], [place] [address] Jun, [facility] [address] [id number] [address] [place] [address], [place] [address] Jun, [facility] [address] [id number] [address] [place] [address], [place] [address] Jun, [facility] [address] [id number] [address] [place] [address], [place] [address] Jun, [facility] [address] [id number] [address] [place] [address], [place] [address] May, [facility] [address] [id number] [address] [place] [address], [place] [address] May, [facility] [address] [id number] [address] [place] [address], [place] [address] May, [facility] [address] [id number] [address] [place] [address], [place] [address] May, [facility] [address] [id number] [address] [place] [address], [place] [address] May, [facility] [address] [id number] [facility] [place] [address] May, 2013 [facility] [address] [id number] [facility] [place] [address] May, 2013 [facility] [address] [id number] [facility] [place] [address] May, 2013 [facility] [address] [id number] [facility] [place] [address] May, 2013 [facility] [address] [id number] [facility] [place] [address] May, 2013 [facility] [address] [id number] [address] [place] [address], [place] [address] May, 2013 [facility] [address] [id number] [address] [place] [address], [place] [address] May, [facility] [address] [id number] [address] [place] [address], [place] [address] May, [facility] [address] [id number] [address] [place] [address], [place] [address] Apr, [facility] [address] [id number] [address] [place] [address], [place] [address] Apr, [facility] [address] [id number] [address] [place] [address], [place] [address] Apr, [facility] [address] [id number] [address] [place] [address], [place] [address] Apr, [facility] [address] [id number] [address] [place] [address], [place] [address] Apr, [facility] [address] [id number] [address] [place] [address], [place] [address] Apr, [facility] [address] [id number] [address] [place] [address], [place] [address] Apr, [facility] [address] [id number] [address] [place] [address], [place] [address] Apr, [facility] [address] [id number] [facility] [place] [address] Apr, [facility] [address] [id number] [address] [place] [address], [place] [address] March, [facility] [address] [id number] [address] [place] [address], [place] [address] March, [facility] [address] [id number] [address] [place] [address], [place] [address] March, [facility] [address] [id number] [address] [place] [address], [place] [address] March, [facility] [address] [id number] [address] [place] [address], [place] [address] March, [facility] [address] [id number] [address] [place] [address], [place] [address] March, [facility] [address] [id number] [address] [place] [address], [place] [address] March, [facility] [address] [id number] [address] [place] [address], [place] [address] March, [facility] [address] [id number] [address] [place] [address], [place] [address] March, [facility] [address] [id number] [address] [place] [address], [place] [address] March, [facility] [address] [id number] [address] [place] [address], [place] [address] March, [facility] [address] [id number] [address] [place] [address], [place] [address] March, [facility] [address] [id number] [address] [place] [address], [place] [address] March, [facility] [address] [id number] [address] [place] [address], [place] [address] March, [facility] [address] [id number] [address] [place] [address], [place] [address] March, [facility] [address] [id number] [address] [place] [address], [place] [address] March, [facility] [address] [id number] [address] [place] [address], [place] [address] March, [facility] [address] [id number] [address] [place] [address], [place] [address] March, [facility] [address] [id number] [address] [place] [address], [place] [address] March, [facility] [address] [id number] [address] [place] [address], [place] [address] March, [facility] [address] [id number] [address] [place] [address], [place] [address] Feb, [facility] [address] [id number] [address] [place] [address], [place] [address] Feb, [facility] [address] [id number] [address] [place] [address], [place] [address] Feb, [facility] [address] [id number] [address] [place] [address], [place] [address] Feb, [facility] [address] [id number] [address] [place] [address], [place] [address] Feb, [facility] [address] [id number] [address] [place] [address], [place] [address] Feb, [facility] [address] [id number] [address] [place] [address], [place] [address] Feb, [facility] [address] [id number] [address] [place] [address], [place] [address] Feb, [facility] [address] [id number] [address] [place] [address], [place] [address] Jan, [facility] [address] [id number] [address] [place] [address], [place] [address] Jan, [facility] [address] [id number] [facility] [place] [address] 24 Jan, 2014 [facility] [address] [id number] [address] [place] [address] 24 Jan, 2014 [facility] [address] [id number] [address] [place] [address] Jan, [facility] [address] [id number] [address] [place] [address], [place] [address] Jan, [facility] [address] [id number] [address] [place] [address], [place] [address] Jan, [facility] [address] [id number] [address] [place] [address], [place] [address] Jan, [facility] [address] [id number] [address] [place] [address], [place] [address] Jan, [facility] [address] [id number] [address] [place] [address], [place] [address] Jan, [facility] [address] [id number] [address] [place] [address], [place] [address] 27 Dec, 2013 [facility] [address] [id number] [address] [place] [address], [place] [address] Dec, [facility] [address] [id number] [address] [place] [address], [place] [address] Dec, [facility] [address] [id number] [address] [place] [address], [place] [address] 2013 [facility] [address] [id number] [address] [place] [address] [address] 2013 [facility] [address] [id number] [address] [place] [address], [place] [address] 13 Dec, 2013 [facility] [address] [id number] [address] [place] [address], [place] [address] 12 Dec, 2013 [facility] [address] [id number] [address] [place] [address], [place] [address] Dec, [facility] [address] [id number] [address] [place] [address], [place] [address] Nov, [facility] [address] [id number] [address] [place] [address], [place] [address] Nov, [facility] [address] [id number] [address] [place] [address], [place] [address] Nov, [facility] [address] [id number] [address] [place] [address], [place] [address] Nov, [facility] [address] [id number] [address] [place] [address], [place] [id number] Nov, [facility] [address] [id number] [address] [place] [address], [place] [id number] Nov, [facility] [address] [id number] [address] [place] [address], [place] [address] Nov, [facility] [address] [id number] [address] [place] [address], [place] [id number] Nov, [facility] [address] [id number] [address] [place] [address], [place] [address] Nov, [facility] [address] [id number] [address] [place] [address], [place] [address] Nov, [facility] [address] [id number] [address] [place] [address], [place] [address] Nov, [facility] [address] [id number] [address] [place] [address], [place] [id number] Nov, [facility] [address] [id number] [address] [place] [address], [place] [address] Nov, [facility] [address] [id number] [address] [place] [address], [place] [address] Oct, [facility] [address] [id number] [address] [place] [address], [place] [address] Oct, [facility] [address] [id number] [address] [place] [address], [place] [address] Oct, [facility] [address] [id number] [address] [place] [address], [place] [address] Oct, [facility] [address] [id number] [address] [place] [address], [place] [address] Oct, [facility] [address] [id number] [address] [place] [address], [place] [address] Oct, [facility] [address] [id number] [address] [place] [address], [place] [address] Oct, [facility] [address] [id number] [address] [place] [address], [place] [id number] Oct, [facility] [address] [id number] [address] [place] [address], [place] [address] Oct, [facility] [address] [id number] [address] [place] [address], [place] [address] Oct, [facility] [address] [id number] [address] [place] [address], [place] [address] Oct, [facility] [address] [id number] [address] [place] [address], [place] [address] Oct, [facility] [address] [id number] [address] [place] [address], [place] [id number] Oct, [facility] [address] [id number] [address] [place] [address], [place] [address] Oct, [facility] [address] [id number] [address] [place] [address], [place] [address] 14 Sep, 2013 [facility] [address] [id number] [address] [place] [address], [place] [address] 14 Sep, 2013 [facility] [address] [id number] [address] [place] [address], [place] [id number] 05 Sep, 2013 [facility] [address] [id number] [address] [place] [address], [place] [address] Sep, [facility] [address] [id number] [address] [place] [address], [place] [address] Sep, [facility] [address] [id number] [address] [place] [id number] Sep, [facility] [address] [id number] [address] [place] [id number] Sep, [facility] [address] [id number] [address] [place] [phone] Sep, [facility] [address] [id number] [address] [place] [address], [place] [address] Sep, [facility] [address] [id number] [address] [place] [id number] Sep, [facility] [address] [id number] [address] [place] [id number] Aug, [facility] [address] [id number] [address] [place] [id number] Aug, [facility] [address] [id number] [address] [place] [id number] Aug, [facility] [address] [id number] [address] [place] [id number] Aug, [facility] [address] [id number] [address] [place] [id number] Aug, [facility] [address] [id number] [address] [place] [id number] Aug, [facility] [address] [id number] [address] [place] [address], [place] [address] Aug, [facility] [address] [id number] [address] [place] [id number] Aug, [facility] [address] [id number] [address] [place] [id number] Aug, [facility] [address] [id number] [address] [place] [address], [place] [address] 22 Aug, 2012 [facility] [address] [id number] [address] [place] [address], [place] [id number] 18 Aug, 2012 [facility] [address] [id number] [address] [place] [address], [place] [id number] 18 Aug, 2012 [facility] [address] [id number] [address] [place] [address], [place] [address] 18 Aug, 2012 [facility] [address] [id number] [address] [place] [address], [place] [address] 18 Aug, 2012 [facility] [address] [id number] [address] [place] [address], [place] [address] 17 Aug, 2013 [facility] [address] [id number] [address] [place] [address], [place] [id number] 14 Aug, 2013 [facility] [address] [address] [id number] [address] [place] [address], [place] [address] 14 Aug, 2013 [facility] [address] [id number] [address] [place] [address], [place] [address] 01 Aug, 2013 [facility] [address] [id number] [address] [place] [address], [place] [address] 20 Jul, 2012 [facility] [address] [id number] [address] [place] [address], [place] [address] 19 Jul, 2012 [facility] [address] [id number] [address] [place] [address], [place] [address] 18 Jul, 2012 [facility] [address] [id number] [address] [place] [address], [place] [address] 11 Jul, 2013 [facility] [address] [id number] [address] [place] [address], [place] [address] 11 Jul, 2013 [facility] [address] [id number] [address] [place] [address], [place] [address] 28 Jun, 2013 [facility] [address] [id number] [address] [place] [address], [place] [address] Jun, [facility] [address] [id number] [address] [place] [address], [place] [address] Jun, [facility] [address] [id number] [address] [place] [address], [place] [address] Jun, [facility] [address] [id number] [address] [place] [address], [place] [address] Jun, [facility] [address] [id number] [address] [place] [address], [place] [address] Jun, [facility] [address] [id number] [address] [place] [address], [place] [address] Jun, [facility] [address] [id number] [address] [place] [address], [place] [address] Jun, [facility] [address] [id number] [address] [place] [address], [place] [address] Jun, [facility] [address] [id number] [address] [place] [address], [place] [address] Jun, [facility] [address] [id number] [address] [place] [address], [place] [address] May, [facility] [address] [id number] [address] [place] [address], [place] [address] May, [facility] [address] [id number] [address] [place] [address], [place] [address] May, [facility] [address] [id number] [address] [place] [address], [place] [address] May, [facility] [address] [id number] [address] [place] [address], [place] [address] May, [facility] [address] [id number] [address] [place] [address], [place] [address] May, [facility] [address] [id number] [address] [place] [address], [place] [address] May, [facility] [address] [id number] [address] [place] [address], [place] [address] May, [facility] [address] [id number] [address] [place] [address], [place] [address] May, [facility] [address] [id number] [address] [place] [address], [place] [address] Apr, [facility] [address] [id number] [address] [place] [address], [place] [address] Apr, [facility] [address] [id number] [address] [place] [address], [place] [address] Apr, [facility] [address] [id number] [address] [place] [address], [place] [address] Apr, [facility] [address] [id number] [address] [place] [address], [place] [address] Apr, [facility] [address] [id number] [address] [place] [address], [place] [address] Apr, [facility] [address] [id number] [address] [place] [address], [place] [address] Apr, [facility] [address] [id number] [address] [place] [address], [place] [address] March, [facility] [address] [id number] [address] [place] [address], [place] [address] Feb, [facility] [address] [id number] [address] [place] [address], [place] [address] Feb, [facility] [address] [id number] [address] [place] [address], [place] [address] Feb, [facility] [address] [id number] [address] [place] [address], [place] [address] Jan, [facility] [address] [id number] [address] [place] [address], [place] [address] Jan, [facility] [address] [id number] [address] [place] [address], [place] [address] Jan, [facility] [address] [id number] [address] [place] [address], [place] [address] 14 Jan, 2013 [facility] [address] [id number] [address] [place] [address], [place] [address] 12 Jan, 2013 [facility] [address] [id number] [address] [place] [address], [place] [address] 08 Jan, 2013 [facility] [address] [id number] [address] [place] [address], [place] [address] 07 Jan, 2013 [facility] [address] [id number] [address] [place] [address], [place] [address] 04 Jan, 2013 [facility] [address] [id number] [address] [place] [address], [place] [address] 28 Dec, 2012 [facility] [address] [id number] [address] [place] [address], [place] [address] 25 Dec, 2012 [facility] [address] [id number] [address] [place] [address], [place] [address] 13 Dec, 2012 [facility] [address] [id number] [address] [place] [address], [place] [address] 11 Dec, 2012 [facility] [address] [id number] [address] [place] [address], [place] [address] 07 Dec, 2012 [facility] [address] [id number] [address] [place] [address], [place] [address] 06 Dec, 2012 [facility] [address] [id number] [address] [place] [address], [place] [address] 05 Dec, 2012 [facility] [address] [id number] [address] [place] [address], [place] [address] Nov, [facility] [address] [id number] [address] [place] [address], [place] [address] 24 Nov, 2012 [facility] [address] [id number] [address] [place] [address], [place] [address] Nov, [facility] [address] [id number] [address] [place] [address], [place] [address] 15 Nov, 2012 [facility] [address] [id number] [address] [place] [address], [place] [address] Nov, [facility] [address] [id number] [address] [place] [address], [place] [address] Nov, [facility] [address] [id number] [address] [place] [address], [place] [address] Nov, [facility] [address] [id number] [address] [place] [address], [place] [address] Oct, [facility] [address] [id number] [address] [place] [address], [place] [address] Oct, [facility] [address] [id number] [address] [place] [address], [place] [address] Oct, [facility] [address] [id number] [address] [place] [address], [place] [address] Oct, [facility] [address] [id number] [address] [place] [address], [place] [address] Oct, [facility] [address] [id number] [address] [place] [address], [place] [address] Oct, [facility] [address] [id number] [address] [place] [address], [place] [address] Oct, [facility] [address] [id number] [address] [place] [address], [place] [address] 07 Oct, 2012 [facility] [address] [id number] [address] [place] [address], [place] [address] 05 Oct, 2012 [facility] [address] [id number] [address] [place] [address], [place] [address] 05 Oct, 2012 [facility] [address] [id number] [address] [place] [address], [place] [address] 04 Oct, 2012 [facility] [address] [id number] [address] [place] [address], [place] [address] 04 Oct, 2012 [facility] [address] [id number] [address] [place] [address], [place] [address] Sep, [facility] [address] [id number] [address] [place] [address], [place] [address] Sep, [facility] [address] [id number] [address] [place] [address], [place] [address] Sep, [facility] [address] [id number] [address] [place] [address], [place] [address] Sep, [facility] [address] [id number] [address] [place] [address], [place] [address] Sep, [facility] [address] [id number] [address] [place] [address], [place] [address] Sep, [facility] [address] [id number] [address] [place] [address], [place] [address] Sep, [facility] [address] [id number] [address] [place] [address], [place] [address] Sep, [facility] [address] [id number] [address] [place] [address], [place] [address] Sep, [facility] [address] [id number] [address] [place] [address], [place] [address] Sep, [facility] [address] [id number] [address] [place] [address], [place] [address] Sep, [facility] [address] [id number] [address] [place] [address], [place] [address] Aug, [facility] [address] [id number] [address] [place] [address], [place] [address] Aug, [facility] [address] [id number] [address] [place] [address], [place] [address] Aug, [facility] [address] [id number] [address] [place] [address], [place] [address] Aug, [facility] [address] [id number] [address] [place] [address], [place] [address] Aug, [facility] [address] [id number] [address] [place] [address], [place] [address] Aug, [facility] [address] [id number] [address] [place] [address], [place] [address] Aug, [facility] [address] [id number] [address] [place] [address], [place] [address] Aug, [facility] [address] [id number] [address] [place] [address], [place] [address] Aug, [facility] [address] [id number] [address] [place] [address], [place] [address] Aug, [facility] [address] [id number] [address] [place] [address], [place] [address] 22 Jul, 2012 [facility] [address] [id number] [address] [place] [address], [place] [address] Jul, [facility] [address] [id number] [address] [place] [address], [place] [address] Jul, [facility] [address] [id number] [address] [place] [address], [place] [address] Jul, [facility] [address] [id number] [address] [place] [address], [place] [address] 30 Jun, 2012 [facility] [address] [id number] [address] [place] [address], [place] [address] Jun, [facility] [address] [id number] [address] [place] [address], [place] [address] 16 Jun, 2012 [facility] [address] [id number] [address] [place] [address], [place] [address] Jun, [facility] [address] [id number] [address] [place] [address], [place] [address] Jun, [facility] [address] [id number] [address] [place] [address], [place] [address] Jun, [facility] [address] [id number] [address] [place] [address] [place] [address] Jun, [facility] [address] [id number] [address] [place] [address], [place] [address] May, [facility] [address] [id number] [address] [place] [address], [place] [address] May, [facility] [address] [id number] [address] [place] [address], [place] [address] May, [facility] [address] [id number] [address] [place] [address], [place] [address] May, [facility] [address] [id number] [address] [place] [address], [place] [address] May, [facility] [address] [id number] [address] [place] [address], [place] [address] Apr, [facility] [address] [id number] [address] [place] [address], [place] [address] Apr, [facility] [address] [id number] [address] [place] [address], [place] [address] Apr, [facility] [address] [id number] [address] [place] [address], [place] [address] Apr, [facility] [address] [id number] [address] [place] [address], [place] [address] Apr, [facility] [address] [id number] [address] [place] [address], [place] [address] March, [facility] [address] [id number] [address] [place] [address], [place] [address] March, [facility] [address] [id number] [address] [place] [address], [place] [address] March, [facility] [address] [id number] [address] [place] [address], [place] [address] March, [facility] [address] [id number] [address] [place] [address], [place] [address] March, [facility] [address] [id number] [address] [place] [address], [place] [address] March, [facility] [address] [id number] [address] [place] [address], [place] [address] March, [facility] [address] [id number] [address] [place] [address], [place] [address] March, [facility] [address] [id number] [address] [place] [address], [place] [address] March, [facility] [address] [id number] [address] [place] [address], [place] [address] March, [facility] [address] [id number] [address] [place] [address], [place] [address] Feb, [facility] [address] [id number] [address] [place] [address], [place] [address] Feb, [facility] [address] [id number] [address] [place] [address], [place] [address] Feb, [facility] [address] [id number] [address] [place] [address], [place] [address] Feb, [facility] [address] [id number] [address] [place] [address], [place] [address] Feb, [facility] [address] [id number] [address] [place] [address], [place] [address] Feb, [facility] [address] [id number] [address] [place] [address], [place] [address] Feb, [facility] [address] [id number] [address] [place] [address], [place] [address] Feb, [facility] [address] [id number] [address] [place] [address], [place] [address] Feb, [facility] [address] [id number] [address] [place] [address], [place] [address] Jan, [facility] [address] [id number] [address] [place] [address], [place] [address] Jan, [facility] [address] [id number] [address] [place] [address], [place] [address] Jan, [facility] [address] [id number] [address] [place] [address], [place] [address] Jan, [facility] [address] [id number] [address] [place] [address], [place] [address] Dec, [facility] [address] [id number] [address] [place] [address], [place] [address] Dec, [facility] [address] [id number] [address] [place] [address], [place] [address] Nov, [facility] [address] [id number] [address] [place] [address], [place] [address] Nov, [facility] [address] [id number] [address] [place] [address], [place] [address] Nov, [facility] [address] [id number] [address] [place] [address], [place] [address] Nov, [facility] [address] [id number] [address] [place] [address], [place] [address] Nov, [facility] [address] [id number] [address] [place] [address], [place] [address] Oct, [facility] [address] [id number] [address] [place] [address], [place] [address] Oct, [facility] [address] [id number] [address] [place] [address], [place] [address] Oct, [facility] [address] [id number] [address] [place] [address], [place] [address] Oct, [facility] [address] [id number] [address] [place] [address], [place] [address] Oct, [facility] [address] [id number] [address] [place] [address], [place] [address] Oct, [facility] [address] [id number] [address] [address] Oct, [facility] [address] [facility] [id number] [address] [place] [address] Oct, [facility] [address] [facility] [id number] [address] [place] [address] Sep, IMMUNIZATIONS No Known Immunizations SOCIAL HISTORY Never Assessed REASON FOR VISIT PLAN OF CARE VITAL SIGNS Height 62 in 2013-01-22 Weight 172 lbs 2013-01-22 Heart Rate 78 bpm 2013-01-22 Respiratory Rate 22 2013-01-22 Blood pressure systolic 150 mmHg 2013-01-22 Blood pressure diastolic 80 mmHg 2013-01-22 MEDICATIONS Unknown Medications RESULTS No Results PROCEDURES No Known procedures INSTRUCTIONS MEDICATIONS ADMINISTERED No Known Medications MEDICAL (GENERAL) HISTORY Type Description Date Medical History 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
--- OUTSIDE RECORDS SUMMARY | 2020-06-18 15:24 | XMS REPORT ---
Author Author Sanjuanita JOHNSON [facility] Address [address] [place] [address] Care Team Providers Care Database Report Writer Name Role Phone ELIZABETHROYASHARIF Unavailable PROBLEMS Type Condition ICD9-CM Code ZDZ33-CG Code Onset Dates Condition S tatus SNOMED Code Problem Coronary artery disease I25.10 Active 99890336 Problem Hypertension I10 Active 9991548 3 Problem Other chronic pain G89.29 Active 8 1921720 Problem Hyperlipidemia E78.5 Active 81827 004 Problem Type 2 diabetes mellitus wit hout complication, without long-term current use of insulin E11.9 Active 463700039 Problem Low back pain M54.5 Active 268321 009 Problem Pharyngeal dysphagia R13.13 Active 72961000686838 Problem Anxiety F41.9 Active 23847141 Problem Peripheral vascular disease I73.9 Ac tive 264309016 Problem Suprapubic catheter Z93.59 Active 842448500 Problem Reactive depression F32.9 Active 65485052 Problem Neurogenic bladder N31.9 Active 3 98333854 Problem Ventral hernia without obstruction or gangrene K43 .9 Active 248244132 Problem Insomnia G47.00 Active 415668339 Problem Paroxysmal atrial fibrillation I48.0 Active 593537092 Problem Postmenopausal atrophic vaginitis N95.2 Active 93285396 Problem Encounter for suprapubic catheter care Z43.5 Active [id number] ALLERGIES No Information ENCOUNTERS Encounter Location Date Diagnosis Via [facility] [address] [place] [id number] Jun, [place] [address] [address] [facility] [id number] [address] [place] [address] Apr, Via [facility] [address] [place] [id number] Apr, Strain of right shoulder, subsequent enc ounter S46.911D [facility] [address] [id number] [address] [place] [address] 14 Apr, 2019 Strain of right shoulder, scherer bsequent encounter S46.911D and Anxiety F41.9 [facility] [address] [place] [id number] 13 Apr, 2019 Type 2 diabetes mellitus without complic ation, without long-term current use of insulin E11.9 and Neurogenic bladder N31.9 [facility] [address] [place] [id number] 11 Apr, 2019 Strain of right shoulder, subsequent enc ounter S46.911D ; History of GI bleed Z87.19 ; Neurogenic bladder N31.9 and Reactive depression F32.9 [place] [address] [id number] [address] [place] [address] 10 Apr, 2019 Acute pain of left shoulder M25.512 [place] [address] [id number] [address] [place] [address] Apr, [place] [address] [id number] [address] [place] [address] Apr, Anxiety F41.9 and 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 Via [facility] [address] [place] [id number] March, Gastrointestinal hemorrhage associated w ith acute gastritis K29.01 [place] [address] [id number] [address] [place] [address] March, [facility] [address] [place] [id number] March, Bronchitis J40 [place] [address] [id number] [address] [place] [address] March, Cough R05 [place] [address] [id number] [address] [place] [address] March, Other chronic pain G89.29 [place] [address] [id number] [address] [place] [address] March, Anxiety F41.9 [place] [address] [id number] [address] [place] [address] March, [facility] [address] [id number] [address] [place] [address] Feb, Other chronic pain G89.29 [facility] [address] [id number] [address] [place] [address] Feb, Anxiety F41.9 [facility] [address] [id number] [address] [place] [address] Feb, Other chronic pain G89.29 [facility] [address] [place] [id number] Feb, Neurogenic bladder N31.9 and Suprapubic catheter Z93.59 [facility] [address] [id number] [address] [place] [address] Jan, Anxiety F41.9 [facility] [address] [id number] [address] [place] [address] Dec, Anxiety F41.9 [facility] [address] [id number] [address] [place] [id number] Dec, Other chronic pain G89.29 an d Anxiety F41.9 [facility] [address] [id number] [address] [place] [address] Dec, Via [facility] [address] [place] [id number] Dec, Neurogenic bladder N31.9 and Suprapubic catheter Z93.59 [facility] [address] [id number] [address] [place] [address] Nov, Other chronic pain G89.29 an d Anxiety F41.9 [facility] [address] [id number] [address] [place] [address] Nov, [facility] [address] [place] [id number] Nov, Suprapubic catheter Z93.59 [facility] [address] [id number] [address] [place] [address] 31 Oct, 2018 Other chronic pain G89.29 an d Anxiety F41.9 [facility] [address] [id number] [address] [place] [address] Oct, [facility] [address] [facility] [id number] [address] [place] [address] Oct, Suprapubic catheter Z93.59 [facility] [address] [id number] [address] [place] [address] Oct, Via [facility] [facility] [address] [place] [id number] Oct, [facility] [address] [facility] [id number] [address] [place] [address] Oct, Anxiety F41.9 [place] [address] [address] [facility] [id number] [address] [place] [address] Oct, Anxiety F41.9 Via [facility] [address] [place] [id number] Oct, Other chronic pain G89.29 [place] [address] [id number] [address] [place] [address] Sep, Other chronic pain G89.29 [facility] [address] [place] [id number] Sep, Suprapubic catheter Z93.59 and Cervicalg ia M54.2 [facility] [address] [id number] [address] [place] [address] Sep, [facility] [address] [id number] [address] [place] [address] Sep, [facility] [address] [facility] [id number] [address] [place] [address] Sep, Via [facility] [address] [place] [id number] Aug, Cystitis N30.90 [facility] [address] [id number] [address] [place] [address] Aug, [facility] [address] [id number] [address] [place] [address] Aug, Other chronic pain G89.29 [facility] [address] [id number] [address] [place] [address] Aug, Via [facility] [facility] [address] [place] [id number] Aug, Encounter for suprapubic catheter care Z 43.5 [facility] [address] [id number] [address] [place] [address] Jul, Via [employer] [address] [place] [id number] Jul, [facility] [address] [id number] [address] [place] [address] Jul, Other chronic pain G89.29 [facility] [address] [id number] [address] [place] [address] Jul, [facility] [address] [id number] [address] [place] [address] Jul, Via [employer] [address] [place] [id number] Jun, Postmenopausal atrophic vaginitis N95.2 [facility] [address] [id number] [address] [place] [address] Jun, Other chronic pain G89.29 [facility] [address] [id number] [address] [place] [address] Jun, Via [employer] [address] [place] [id number] May, Anxiety F41.9 ; Type 2 diabetes mellitus without complication, without long-term current use of insulin E11.9 ; Hypertension I10 ; Low back pain M54.5 ; Paroxysmal atrial fibrillation I48.0 and 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 [facility] [address] [id number] [address] [place] [address] May, Other chronic pain G89.29 [facility] [facility] [address] [place] [id number] May, Low back pain M54.5 [facility] [address] [id number] [address] [place] [address] May, [facility] [address] [id number] [address] [place] [address] Apr, Other chronic pain G89.29 [facility] [address] [id number] [address] [place] [address] Apr, [facility] [address] [id number] [address] [place] [address] Apr, Via [facility] [address] [place] [id number] 19 Apr, 2018 Closed compression fracture of L3 lumbar vertebra with routine healing, subsequent encounter S32.030D [facility] [facility] [address] [place] [id number] 14 Apr, 2018 Low back pain M54.5 [facility] [employer] [address] [place] [id number] Apr, Coccydynia M53.3 [facility] [address] [id number] [address] [place] [address] March, [facility] [address] [id number] [address] [place] [address] March, Other chronic pain G89.29 [facility] [address] [id number] [address] [place] [address] March, [facility] [address] [id number] [address] [place] [address] March, [facility] [address] [id number] [address] [place] [address] Feb, [facility] [address] [id number] [address] [place] [address] Feb, Other chronic pain G89.29 [facility] [address] [place] [address] Feb, Other chronic pain G89.29 and Anxiety F4 1.9 [facility] [address] [id number] [address] [place] [address] Feb, [facility] [address] [id number] [address] [place] [address] Jan, [facility] [address] [id number] [address] [place] [address] Jan, [facility] [address] [id number] [address] [place] [address] Jan, [facility] [address] [facility] [id number] [address] [place] [address] Jan, [facility] [address] [facility] [id number] [address] [place] [address] Dec, [facility] [address] [place] [id number] Dec, Peripheral vascular disease I73.9 ; 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 ; Other chronic pain G89.29 ; Anxiety F41.9 ; Reactive depression F32.9 ; Insomnia G47.00 and Type 2 diabetes mellitus without complication, without long-term current use of insulin E11.9 [facility] ADRIENNE SANCHEZ [id number] [place] [address] Nov, [facility] [address] [id number] [place] [id number] Nov, Anxiety F41.9 [facility] [address] [id number] [address] [place] [address] Nov, [facility] [address] [id number] [place] [id number] Nov, Anxiety F41.9 [facility] [address] [place] [id number] Nov, Status post surgery Z98.890 ; Confused R 41.0 ; Anxiety F41.9 and Other chronic pain G89.29 [facility] [address] [id number] [place] [id number] Nov, Other chronic pain G89.29 [facility] [address] [facility] [id number] [address] [place] [address] Oct, [facility] [address] [id number] [place] [id number] Oct, Other chronic pain G89.29 [facility] [address] [facility] [id number] [address] [place] [address] Oct, Anxiety F41.9 [place] [address] [id number] [place] [id number] Sep, Other chronic pain G89.29 [facility] [address] [id number] [place] [id number] Sep, [facility] [address] [place] [id number] Aug, Dysuria R30.0 and Anxiety F41.9 [facility] [address] [facility] [id number] [address] [place] [address] Aug, [facility] [address] [id number] [place] [id number] Aug, Other chronic pain G89.29 [facility] [address] [facility] [id number] [address] [place] [address] Jul, Other chronic pain G89.29 [facility] [address] [id number] [place] [id number] Jun, [facility] [address] [id number] [place] [address] Jun, Other chronic pain G89.29 [facility] [address] [facility] [id number] [address] [place] [address] Jun, [facility] [address] [id number] [address] [place] [address] May, Other chronic pain G89.29 [facility] [address] [id number] [address] [place] [address] Apr, Other chronic pain G89.29 [facility] [address] [place] [id number] Apr, Reactive depression F32.9 and Pharyngeal dysphagia R13.13 [facility] [address] [id number] [address] [place] [address] Apr, Urinary tract infection with out hematuria, site unspecified N39.0 [facility] [address] [id number] [address] [place] [address] March, Other chronic pain G89.29 [facility] [address] [id number] [address] [place] [address] Feb, Other chronic pain G89.29 [facility] [address] [id number] [address] [place] [address] Feb, [facility] [address] [id number] [place] [facility] [place] [id number] Feb, [facility] [address] [place] [id number] Feb, Dysuria R30.0 and Ventral hernia without obstruction or gangrene K43.9 [facility] [address] [id number] [address] [place] [address] Jan, Other chronic pain G89.29 [facility] [address] [id number] [place] [id number] Dec, Other chronic pain G89.29 [facility] [address] [id number] [address] [place] [address] Nov, Other chronic pain G89.29 [facility] [address] [place] [id number] Nov, Lymphadenitis I88.9 [facility] [address] [id number] [address] [place] [address] Nov, Other chronic pain G89.29 [facility] [address] [id number] [address] [place] [address] Nov, [facility] [address] [id number] [place] [id number] Nov, Other chronic pain G89.29 [facility] [address] [place] [address] Oct, Low back pain M54.5 ; Hypertension I10 a nd Type 2 diabetes mellitus without complication, without long-term current use of insulin E11.9 [facility] [address] [id number] [address] [place] [address] Oct, [facility] [address] [id number] [address] [place] [address] Oct, [facility] [address] [id number] [address] [place] [address] Oct, [facility] [address] [id number] [address] [place] [address] Oct, [facility] [address] [id number] [address] [place] [address] Sep, [facility] [address] [id number] [address] [place] [address] Sep, [facility] [address] [id number] [address] [place] [address] Aug, Other chronic pain G89.29 [facility] [address] [id number] [address] [place] [address] Jul, [facility] [address] [id number] [address] [place] [id number] Jul, [facility] [address] [id number] [address] [place] [address] Jul, [facility] [address] [id number] [address] [place] [address] Jun, [facility] [address] [id number] [address] [place] [address] Jun, [facility] [address] [place] [id number] Jun, Low back pain M54.5 ; Other chronic pain G89.29 and Coronary artery disease I25.10 [facility] [address] [id number] [address] [place] [address] Jun, [facility] [address] [id number] [address] [place] [address] May, [facility] [address] [id number] [address] [place] [address] May, [facility] [address] [id number] [address] [place] [address] May, Other chronic pain G89.29 [facility] [address] [id number] [address] [place] [address] May, [facility] [address] [id number] [address] [place] [address] Apr, [facility] [address] [id number] [address] [place] [address] Apr, Acute cystitis without hemat uria N30.00 [facility] [address] [id number] [address] [place] [address] Apr, Acute cystitis without hemat uria N30.00 ; Coronary artery disease I25.10 ; Low back pain M54.5 and Other chronic pain G89.29 [facility] [address] [id number] [address] [place] [address] Apr, Other chronic pain G89.29 [facility] [address] [id number] [address] [place] [address] March, Other chronic pain G89.29 [facility] [address] [id number] [address] [place] [address] 18 Feb, 2016 [facility] [address] [id number] [address] [place] [address] 15 Feb, 2016 Arthritis M19.90 [facility] [address] [id number] [address] [place] [address] Feb, [facility] [address] [id number] [address] [place] [address] 30 Jan, 2016 [facility] [address] [id number] [address] [place] [address] Jan, [facility] [address] [id number] [address] [place] [address] Jan, Other chronic pain G89.29 [facility] [address] [id number] [address] [place] [address] Jan, Hypertension I10 ; Coronary artery disease I25.10 and Insomnia G47.00 [facility] [address] [id number] [address] [place] [address] Jan, [facility] [address] [id number] [address] [place] [address] Dec, Right hip pain M25.551 [facility] [address] [id number] [address] [place] [address] Dec, [facility] [address] [id number] [address] [place] [address] Dec, [facility] [address] [id number] [address] [place] [id number] Dec, [facility] [address] [facility] [id number] [address] [place] [address] Dec, Other chronic pain G89.29 [facility] [address] [id number] [address] [place] [address] Dec, [facility] [address] [id number] [address] [place] [address] Nov, [facility] [address] [id number] [address] [place] [address] Nov, Other chronic pain G89.29 [facility] [address] [id number] [address] [place] [address] Nov, Right hip pain M25.551 and C oronary artery disease I25.10 [facility] [address] [id number] [address] [place] [address] Nov, Other chronic pain G89.29 [facility] [address] [id number] [address] [place] [id number] Oct, [facility] [address] [id number] [address] [place] [id number] Oct, [facility] [address] [id number] [address] [place] [id number] Sep, [facility] [address] [id number] [address] [place] [id number] Sep, [facility] [address] [id number] [address] [place] [id number] Aug, [facility] [address] [facility] [id number] [address] [place] [id number] Aug, Hypertension I10 ; Coronary artery disease I25.10 and Arthritis M19.90 [facility] [address] [id number] [address] [place] [id number] Jun, [facility] [address] [id number] [address] [place] [id number] Jun, Essential hypertension, jayson gn 401.1 ; Other chronic pain 338.29 and Chronic airway obstruction, not elsewhere classified 496 [facility] [address] [id number] [address] [place] [id number] Jun, [facility] [address] [id number] [address] [place] [address], [place] [address] Jun, [facility] [address] [id number] [address] [place] [address], [place] [address] Jun, [facility] [address] [id number] [address] [place] [address], [place] [address] May, [facility] [address] [id number] [address] [place] [address], [place] [address] May, [facility] [address] [id number] [address] [place] [address], [place] [address] Apr, [facility] [address] [id number] [address] [place] [address], [place] [address] Apr, [facility] [address] [id number] [address] [place] [address], [place] [address] Apr, [facility] [address] [id number] [address] [place] [address], [place] [address] March, [facility] [address] [id number] [address] [place] [address], [place] [address] March, [facility] [address] [id number] [address] [place] [address], [place] [address] March, [facility] [address] [id number] [address] [place] [address], [place] [address] March, [facility] [address] [id number] [address] [place] [address], [place] [address] March, Sialadenitis 527.2 [facility] [address] [id number] [address] [place] [address], [place] [address] Feb, [facility] [address] [id number] [address] [place] [address], [place] [address] Feb, [facility] [address] [id number] [address] [place] [address], [place] [address] Feb, [facility] [address] [id number] [address] [place] [address], [place] [address] 14 Feb, 2015 [facility] [address] [id number] [address] [place] [address], [place] [address] 13 Feb, 2015 [facility] [address] [id number] [address] [place] [address], [place] [address] Jan, [facility] [address] [id number] [address] [place] [address], [place] [address] Jan, [facility] [address] [id number] [address] [place] [address], [place] [address] Jan, [facility] [address] [id number] [address] [place] [address], [place] [address] Jan, [facility] [address] [id number] [address] [place] [address], [place] [address] Jan, [facility] [address] [id number] [address] [place] [address], [place] [address] Jan, [facility] [address] [id number] [address] [place] [address], [place] [address] Dec, [facility] [address] [id number] [address] [place] [address], [place] [address] Dec, 2014 [facility] [address] [id number] [address] [place] [address], [place] [address] Dec, [facility] [address] [id number] [address] [place] [address], [place] [address] Dec, 2014 [facility] [address] [id number] [address] [place] [address], [place] [address] Dec, [facility] [address] [id number] [address] [place] [address], [place] [address] Dec, 2014 [facility] [address] [id number] [address] [place] [address], [place] [address] Nov, [facility] [address] [id number] [address] [place] [address], [place] [address] Nov, [facility] [address] [id number] [address] [place] [address], [place] [address] Nov, [facility] [address] [id number] [address] [place] [address], [place] [address] Nov, [facility] [address] [id number] [address] [place] [address], [place] [address] Nov, [facility] [address] [id number] [address] [place] [address], [place] [address] Nov, [facility] [address] [id number] [address] [place] [address], [place] [address] Nov, [facility] [address] [id number] [address] [place] [address], [place] [address] Nov, [facility] [address] [id number] [address] [place] [address], [place] [address] Nov, [facility] [address] [id number] [address] [place] [address], [place] [address] Nov, [facility] [address] [id number] [address] [place] [address], [place] [address] Nov, [facility] [address] [id number] [address] [place] [address], [place] [address] Nov, [facility] [address] [id number] [address] [place] [address], [place] [address] Nov, [facility] [address] [id number] [address] [place] [address], [place] [address] Nov, [facility] [address] [id number] [address] [place] [address], [place] [address] Oct, [facility] [address] [id number] [address] [place] [address], [place] [address] Oct, [facility] [address] [id number] [address] [place] [address], [place] [address] Oct, [facility] [address] [id number] [address] [place] [address], [place] [address] Oct, [facility] [address] [id number] [address] [place] [address], [place] [address] 18 Oct, 2014 [facility] [address] [id number] [address] [place] [address], [place] [address] Oct, [facility] [address] [id number] [address] [place] [address], [place] [address] Oct, [facility] [address] [id number] [address] [place] [address], [place] [address] Oct, [facility] [address] [id number] [address] [place] [address], [place] [address] Oct, [facility] [address] [id number] [address] [place] [address], [place] [address] Sep, [facility] [address] [id number] [address] [place] [address], [place] [address] Sep, [facility] [address] [id number] [address] [place] [address], [place] [address] Sep, [facility] [address] [id number] [address] [place] [address], [place] [address] Sep, [facility] [address] [id number] [address] [place] [address], [place] [address] Sep, [facility] [address] [id number] [address] [place] [address], [place] [address] Sep, [facility] [address] [id number] [address] [place] [address], [place] [address] Sep, [facility] [address] [id number] [address] [place] [address], [place] [address] Sep, [facility] [address] [id number] [address] [place] [address], [place] [address] Sep, [facility] [address] [id number] [address] [place] [address], [place] [address] Sep, [facility] [address] [id number] [address] [place] [address], [place] [address] Sep, [facility] [address] [id number] [address] [place] [address], [place] [address] Sep, [facility] [address] [id number] [address] [place] [address], [place] [address] Aug, [facility] [address] [id number] [address] [place] [address], [place] [address] Aug, [facility] [address] [id number] [address] [place] [address], [place] [address] Aug, [facility] [address] [id number] [address] [place] [address], [place] [address] Aug, [facility] [address] [id number] [address] [place] [address], [place] [address] Aug, [facility] [address] [id number] [address] [place] [address], [place] [address] Aug, [facility] [address] [id number] [address] [place] [address], [place] [address] Aug, [facility] [address] [id number] [address] [place] [address], [place] [address] 17 Aug, 2014 [facility] [address] [id number] [address] [place] [address], [place] [address] 30 Jul, 2013 [facility] [address] [id number] [address] [place] [address], [place] [address] 30 Sep, 2013 [facility] [address] [id number] [address] [place] [address], [place] [address] 30 Sep, 2013 [facility] [address] [id number] [address] [place] [address], [place] [address] 30 Sep, 2013 [facility] [address] [id number] [address] [place] [address], [place] [address] 25 Sep, 2013 [facility] [address] [id number] [address] [place] [address], [place] [address] 25 Sep, 2013 [facility] [address] [id number] [facility] [place] [address] 15 Jul, 2014 [facility] [address] [id number] [facility] [place] [address] 15 Jul, 2014 [facility] [address] [id number] [facility] [place] [address] Jul, [facility] [address] [id number] [facility] [place] [address] Jul, [facility] [address] [id number] [facility] [place] [address] Jun, [facility] [address] [id number] [address] [place] [address], [place] [address] Jun, [facility] [address] [id number] [address] [place] [address], [place] [address] Jun, [facility] [address] [id number] [address] [place] [address], [place] [address] Jun, [facility] [address] [id number] [address] [place] [address], [place] [address] Jun, [facility] [address] [id number] [address] [place] [address], [place] [address] Jun, [facility] [address] [id number] [address] [place] [address], [place] [address] Jun, [facility] [address] [id number] [address] [place] [address], [place] [address] Jun, [facility] [address] [id number] [address] [place] [address], [place] [address] Jun, [facility] [address] [id number] [address] [place] [address], [place] [address] Jun, [facility] [address] [id number] [address] [place] [address], [place] [address] Jun, [facility] [address] [id number] [address] [place] [address], [place] [address] Jun, [facility] [address] [id number] [facility] [place] [address] Jun, [facility] [address] [id number] [address] [place] [address], [place] [address] Jun, [facility] [address] [id number] [address] [place] [address], [place] [address] Jun, [facility] [address] [id number] [address] [place] [address], [place] [address] Jun, [facility] [address] [id number] [address] [place] [address], [place] [address] Jun, [facility] [address] [id number] [address] [place] [address], [place] [address] Jun, [facility] [address] [id number] [address] [place] [address], [place] [address] Jun, [facility] [address] [id number] [address] [place] [address], [place] [address] Jun, [facility] [address] [id number] [address] [place] [address], [place] [address] Jun, [facility] [address] [id number] [address] [place] [address], [place] [address] Jun, [facility] [address] [id number] [address] [place] [address], [place] [address] May, [facility] [address] [id number] [address] [place] [address], [place] [address] May, [facility] [address] [id number] [address] [place] [address], [place] [address] May, [facility] [address] [id number] [address] [place] [address], [place] [address] May, [facility] [address] [id number] [address] [place] [address], [place] [address] May, [facility] [address] [id number] [facility] [place] [address] May, 2013 [facility] [address] [id number] [facility] [place] [address] May, 2013 [facility] [address] [id number] [facility] [place] [address] May, 2013 [facility] [address] [id number] [address] [place] [address], [place] [address] May, 2013 [facility] [address] [id number] [address] [place] [address], [place] [address] May, 2013 [facility] [address] [id number] [address] [place] [address], [place] [address] May, 2013 [facility] [address] [id number] [address] [place] [address], [place] [address] May, [facility] [address] [id number] [address] [place] [address], [place] [address] May, [facility] [address] [id number] [address] [place] [address], [place] [address] Apr, [facility] [address] [id number] [address] [place] [address], [place] [address] Apr, [facility] [address] [id number] [address] [place] [address], [place] [address] Apr, [facility] [address] [id number] [address] [place] [address], [place] [address] Apr, [facility] [address] [id number] [address] [place] [address], [place] [address] Apr, [facility] [address] [id number] [address] [place] [address], [place] [address] Apr, [facility] [address] [id number] [address] [place] [address], [place] [address] Apr, [facility] [address] [id number] [address] [place] [address], [place] [address] Apr, [facility] [address] [id number] [address] [place] [address], [place] [address] Apr, [facility] [address] [id number] [address] [place] [address], [place] [address] March, [facility] [address] [id number] [address] [place] [address], [place] [address] March, [facility] [address] [id number] [address] [place] [address], [place] [address] March, [facility] [address] [id number] [address] [place] [address], [place] [address] March, [facility] [address] [id number] [address] [place] [address], [place] [address] March, [facility] [address] [id number] [address] [place] [address], [place] [address] March, [facility] [address] [id number] [address] [place] [address], [place] [address] March, [facility] [address] [id number] [address] [place] [address], [place] [address] March, [facility] [address] [id number] [address] [place] [address], [place] [address] March, [facility] [address] [id number] [address] [place] [address], [place] [address] March, [facility] [address] [id number] [address] [place] [address], [place] [address] March, [facility] [address] [id number] [address] [place] [address], [place] [address] March, [facility] [address] [id number] [address] [place] [address], [place] [address] March, [facility] [address] [id number] [address] [place] [address], [place] [address] March, [facility] [address] [id number] [address] [place] [address], [place] [address] March, [facility] [address] [id number] [address] [place] [address], [place] [address] March, [facility] [address] [id number] [address] [place] [address], [place] [address] March, [facility] [address] [id number] [address] [place] [address], [place] [address] March, [facility] [address] [id number] [address] [place] [address], [place] [address] March, [facility] [address] [id number] [address] [place] [address], [place] [address] March, [facility] [address] [id number] [address] [place] [address], [place] [address] Feb, [facility] [address] [id number] [address] [place] [address], [place] [address] Feb, [facility] [address] [id number] [address] [place] [address], [place] [address] Feb, [facility] [address] [id number] [address] [place] [address], [place] [address] Feb, [facility] [address] [id number] [address] [place] [address], [place] [address] Feb, [facility] [address] [id number] [address] [place] [address], [place] [address] Feb, [facility] [address] [id number] [address] [place] [address], [place] [address] Feb, [facility] [address] [id number] [address] [place] [address], [place] [address] Feb, [facility] [address] [id number] [address] [place] [address], [place] [address] Jan, [facility] [address] [id number] [address] [place] [address], [place] [address] Jan, [facility] [address] [id number] [facility] [place] [address] 24 Jan, 2014 [facility] [address] [id number] [address] [place] [address], [place] [address] 24 Jan, 2014 [facility] [address] [id number] [address] [place] [address], [place] [address] Jan, [facility] [address] [id number] [address] [place] [address], [place] [address] Jan, [facility] [address] [id number] [address] [place] [address], [place] [address] Jan, [facility] [address] [id number] [address] [place] [address], [place] [address] Jan, [facility] [address] [id number] [address] [place] [address], [place] [address] Jan, [facility] [address] [id number] [address] [place] [address], [place] [address] Jan, [facility] [address] [id number] [address] [place] [address], [place] [address] 27 Dec, 2013 [facility] [address] [id number] [address] [place] [address], [place] [address] 26 Dec, 2013 [facility] [address] [id number] [address] [place] [address], [place] [address] 26 Dec, 2013 [facility] [address] [id number] [address] [place] [address] [address] 2013 [facility] [address] [id number] [address] [place] [address], [place] [address] 2013 [facility] [address] [id number] [address] [place] [address], [place] [address] 13 Dec, 2013 [facility] [address] [id number] [address] [place] [address], [place] [address] 12 Dec, 2013 [facility] [address] [id number] [address] [place] [address], [place] [address] Dec, [facility] [address] [id number] [address] [place] [address], [place] [address] Nov, [facility] [address] [id number] [address] [place] [address], [place] [address] Nov, [facility] [address] [id number] [address] [place] [address], [place] [address] Nov, [facility] [address] [id number] [address] [place] [address], [place] [address] Nov, [facility] [address] [id number] [address] [place] [address], [place] [address] Nov, [facility] [address] [id number] [address] [place] [address], [place] [address] Nov, [facility] [address] [id number] [address] [place] [address], [place] [address] Nov, [facility] [address] [id number] [address] [place] [address], [place] [address] Nov, [facility] [address] [id number] [address] [place] [address], [place] [address] Nov, [facility] [address] [id number] [address] [place] [address], [place] [address] Nov, [facility] [address] [id number] [address] [place] [address], [place] [address] Nov, [facility] [address] [id number] [address] [place] [address], [place] [address] Nov, [facility] [address] [id number] [address] [place] [address], [place] [address] Nov, [facility] [address] [id number] [address] [place] [address], [place] [address] Oct, [facility] [address] [id number] [address] [place] [address], [place] [address] Oct, [facility] [address] [id number] [address] [place] [address], [place] [address] Oct, [facility] [address] [id number] [address] [place] [address], [place] [address] Oct, [facility] [address] [id number] [address] [place] [address], [place] [address] Oct, [facility] [address] [id number] [address] [place] [address], [place] [address] Oct, [facility] [address] [id number] [address] [place] [address], [place] [address] Oct, [facility] [address] [id number] [address] [place] [address], [place] [address] Oct, [facility] [address] [id number] [address] [place] [address], [place] [address] Oct, [facility] [address] [id number] [address] [place] [address], [place] [address] Oct, [facility] [address] [id number] [address] [place] [address], [place] [address] Oct, [facility] [address] [id number] [address] [place] [address], [place] [address] Oct, [facility] [address] [id number] [address] [place] [address], [place] [address] Oct, [facility] [address] [id number] [address] [place] [address], [place] [address] Oct, [facility] [address] [id number] [address] [place] [address], [place] [address] Sep, [facility] [address] [id number] [address] [place] [address], [place] [address] Sep, [facility] [address] [id number] [address] [place] [address], [place] [address] Sep, [facility] [address] [id number] [address] [place] [address], [place] [address] Sep, [facility] [address] [id number] [address] [place] [address], [place] [address] Sep, [facility] [address] [id number] [address] [place] [address], [place] [address] Sep, [facility] [address] [id number] [address] [place] [address], [place] [address] Sep, [facility] [address] [id number] [address] [place] [address], [place] [address] Sep, [facility] [address] [id number] [address] [place] [address], [place] [address] Sep, [facility] [address] [id number] [address] [place] [address], [place] [address] Sep, [facility] [address] [id number] [address] [place] [address], [place] [address] Aug, [facility] [address] [id number] [address] [place] [address] Aug, [facility] [address] [id number] [address] [place] [address], [place] [address] Aug, [facility] [address] [id number] [address] [place] [address] Aug, [facility] [address] [id number] [address] [place] [address] Aug, [facility] [address] [id number] [address] [place] [address] Aug, [facility] [address] [id number] [address] [place] [address], [place] [address] Aug, [facility] [address] [id number] [address] [place] [address] Aug, [facility] [address] [id number] [address] [place] [address], [place] [address] Aug, [facility] [address] [id number] [address] [place] [address], [place] [address] 22 Aug, 2012 [facility] [address] [id number] [address] [place] [address], [place] [address] 18 Aug, 2012 [facility] [address] [id number] [address] [place] [address], [place] [address] 18 Aug, 2012 [facility] [address] [id number] [address] [place] [address], [place] [address] 18 Aug, 2012 [facility] [address] [id number] [address] [place] [address], [place] [address] 18 Aug, 2012 [facility] [address] [id number] [address] [place] [address], [place] [address] 17 Aug, 2012 [facility] [address] [id number] [address] [place] [address], [place] [address] 14 Aug, 2013 [facility] [address] [id number] [address] [place] [address], [place] [address] 14 Aug, 2013 [facility] [address] [id number] [address] [place] [address], [place] [address] 01 Aug, 2013 [facility] [address] [id number] [address] [place] [address], [place] [address] 20 Jul, 2012 [facility] [address] [id number] [address] [place] [address], [place] [address] 19 Jul, 2012 [facility] [address] [id number] [address] [place] [address], [place] [address] 18 Jul, 2012 [facility] [address] [id number] [address] [place] [address], [place] [address] 11 Jul, 2012 [facility] [address] [id number] [address] [place] [address], [place] [address] 11 Jul, 2013 [facility] [address] [id number] [address] [place] [address], [place] [address] 28 Jun, 2013 [facility] [address] [id number] [address] [place] [address], [place] [address] 23 Jun, 2013 [facility] [address] [id number] [facility] [place] [address] Jun, [facility] [address] [id number] [facility] [place] [address] Jun, [facility] [address] [id number] [facility] [place] [address] Jun, [facility] [address] [id number] [address] [place] [address], [place] [address] Jun, [facility] [address] [id number] [address] [place] [address], [place] [address] Jun, [facility] [address] [id number] [address] [place] [address], [place] [address] Jun, [facility] [address] [id number] [address] [place] [address], [place] [address] Jun, [facility] [address] [id number] [address] [place] [address], [place] [address] Jun, [facility] [address] [id number] [address] [place] [address], [place] [address] May, [facility] [address] [id number] [address] [place] [address], [place] [address] May, [facility] [address] [id number] [address] [place] [address], [place] [address] May, [facility] [address] [id number] [address] [place] [address], [place] [address] May, [facility] [address] [id number] [address] [place] [address], [place] [address] May, [facility] [address] [id number] [address] [place] [address], [place] [address] May, [facility] [address] [id number] [address] [place] [address], [place] [address] May, [facility] [address] [id number] [address] [place] [address], [place] [address] May, [facility] [address] [id number] [address] [place] [address], [place] [address] May, [facility] [address] [id number] [address] [place] [address], [place] [address] Apr, [facility] [address] [id number] [address] [place] [address], [place] [address] Apr, [facility] [address] [id number] [address] [place] [address], [place] [address] Apr, [facility] [address] [id number] [address] [place] [address], [place] [address] Apr, [facility] [address] [id number] [address] [place] [address], [place] [address] Apr, [facility] [address] [id number] [address] [place] [address], [place] [address] Apr, [facility] [address] [id number] [address] [place] [address], [place] [address] Apr, [facility] [address] [id number] [address] [place] [address], [place] [address] March, [facility] [address] [id number] [address] [place] [address], [place] [address] Feb, [facility] [address] [id number] [address] [place] [address], [place] [address] Feb, [facility] [address] [id number] [address] [place] [address], [place] [address] Feb, [facility] [address] [id number] [address] [place] [address], [place] [address] Jan, [facility] [address] [id number] [address] [place] [address], [place] [address] Jan, [facility] [address] [id number] [address] [place] [address], [place] [address] Jan, [facility] [address] [id number] [address] [place] [address], [place] [address] 14 Jan, 2013 [facility] [address] [id number] [address] [place] [address], [place] [address] 12 Jan, 2013 [facility] [address] [id number] [address] [place] [address], [place] [address] 08 Jan, 2013 [facility] [address] [id number] [address] [place] [address], [place] [address] 07 Jan, 2013 [facility] [address] [id number] [address] [place] [address], [place] [address] 04 Jan, 2013 [facility] [address] [id number] [address] [place] [address], [place] [address] 28 Dec, 2012 [facility] [address] [id number] [address] [place] [address], [place] [address] 25 Dec, 2012 [facility] [address] [id number] [address] [place] [address], [place] [address] 13 Dec, 2012 [facility] [address] [id number] [address] [place] [address], [place] [address] 11 Dec, 2012 [facility] [address] [id number] [address] [place] [address], [place] [address] 07 Dec, 2012 [facility] [address] [id number] [address] [place] [address], [place] [address] 06 Dec, 2012 [facility] [address] [id number] [address] [place] [address], [place] [address] 05 Dec, 2012 [facility] [address] [id number] [address] [place] [address], [place] [address] Nov, [facility] [address] [id number] [address] [place] [address], [place] [address] 24 Nov, 2012 [facility] [address] [id number] [address] [place] [address], [place] [address] 18 Nov, 2012 [facility] [address] [id number] [address] [place] [address], [place] [address] 15 Nov, 2012 [facility] [address] [id number] [address] [place] [address], [place] [address] 10 Nov, 2012 [facility] [address] [id number] [address] [place] [address], [place] [address] 10 Nov, 2012 [facility] [address] [id number] [address] [place] [address], [place] [address] Nov, [facility] [address] [id number] [address] [place] [address], [place] [address] Oct, [facility] [address] [id number] [address] [place] [address], [place] [address] Oct, [facility] [address] [id number] [address] [place] [address], [place] [address] Oct, [facility] [address] [id number] [address] [place] [address], [place] [address] Oct, [facility] [address] [id number] [address] [place] [address], [place] [address] Oct, [facility] [address] [id number] [address] [place] [address], [place] [address] Oct, [facility] [address] [id number] [address] [place] [address], [place] [address] Oct, [facility] [address] [id number] [address] [place] [address], [place] [address] Oct, [facility] [address] [id number] [address] [place] [address], [place] [address] 05 Oct, 2012 [facility] [address] [id number] [address] [place] [address], [place] [address] Oct, [facility] [address] [id number] [address] [place] [address], [place] [address] Oct, [facility] [address] [id number] [address] [place] [address], [place] [address] Oct, [facility] [address] [id number] [address] [place] [address], [place] [address] Sep, [facility] [address] [id number] [address] [place] [address], [place] [address] Sep, [facility] [address] [id number] [address] [place] [address], [place] [address] Sep, [facility] [address] [id number] [address] [place] [address], [place] [address] Sep, [facility] [address] [id number] [address] [place] [address], [place] [address] Sep, [facility] [address] [id number] [address] [place] [address], [place] [address] Sep, [facility] [address] [id number] [address] [place] [address], [place] [address] Sep, [facility] [address] [id number] [address] [place] [address], [place] [address] Sep, [facility] [address] [id number] [address] [place] [address], [place] [address] Sep, [facility] [address] [id number] [address] [place] [address], [place] [address] Sep, [facility] [address] [id number] [address] [place] [address], [place] [address] Sep, [facility] [address] [id number] [address] [place] [address], [place] [address] Aug, [facility] [address] [id number] [address] [place] [address], [place] [address] Aug, [facility] [address] [id number] [address] [place] [address], [place] [address] Aug, [facility] [address] [id number] [address] [place] [address], [place] [address] Aug, [facility] [address] [id number] [address] [place] [address], [place] [address] Aug, [facility] [address] [id number] [address] [place] [address], [place] [address] Aug, [facility] [address] [id number] [address] [place] [address], [place] [address] Aug, [facility] [address] [id number] [address] [place] [address], [place] [address] Aug, [facility] [address] [id number] [address] [place] [address], [place] [address] Aug, [facility] [address] [id number] [address] [place] [address], [place] [address] Aug, [facility] [address] [id number] [address] [place] [address], [place] [address] 22 Jul, 2012 [facility] [address] [id number] [address] [place] [address], [place] [address] 20 Jul, 2012 [facility] [address] [id number] [address] [place] [address], [place] [address] Jul, [facility] [address] [id number] [address] [place] [address], [place] [address] 06 Jul, 2012 [facility] [address] [id number] [address] [place] [address], [place] [address] 30 Jun, 2012 [facility] [address] [id number] [address] [place] [address], [place] [address] Jun, [facility] [address] [id number] [address] [place] [address], [place] [address] 16 Jun, 2012 [facility] [address] [id number] [address] [place] [address], [place] [address] Jun, [facility] [address] [id number] [address] [place] [address], [place] [address] Jun, [facility] [address] [id number] [address] [place] [address], [place] [address] Jun, [facility] [address] [id number] [address] [place] [address], [place] [address] Jun, [facility] [address] [id number] [address] [place] [address], [place] [address] May, [facility] [address] [id number] [address] [place] [address], [place] [address] May, [facility] [address] [id number] [address] [place] [address], [place] [address] May, [facility] [address] [id number] [address] [place] [address], [place] [address] May, [facility] [address] [id number] [address] [place] [address], [place] [address] May, [facility] [address] [id number] [address] [place] [address], [place] [address] Apr, [facility] [address] [id number] [address] [place] [address], [place] [address] Apr, [facility] [address] [id number] [address] [place] [address], [place] [address] Apr, [facility] [address] [id number] [address] [place] [address], [place] [address] Apr, [facility] [address] [id number] [address] [place] [address], [place] [address] Apr, [facility] [address] [id number] [address] [place] [address], [place] [address] March, [facility] [address] [id number] [address] [place] [address], [place] [address] March, [facility] [address] [id number] [address] [place] [address], [place] [address] March, [facility] [address] [id number] [address] [place] [address], [place] [address] March, [facility] [address] [id number] [address] [place] [address], [place] [address] March, [facility] [address] [id number] [address] [place] [address], [place] [address] March, [facility] [address] [id number] [address] [place] [address], [place] [address] March, [facility] [address] [id number] [address] [place] [address], [place] [address] March, [facility] [address] [id number] [address] [place] [address], [place] [address] March, [facility] [address] [id number] [address] [place] [address], [place] [address] March, [facility] [address] [id number] [address] [place] [address], [place] [address] Feb, [facility] [address] [id number] [address] [place] [address], [place] [address] Feb, [facility] [address] [id number] [address] [place] [address], [place] [address] Feb, [facility] [address] [id number] [address] [place] [address], [place] [address] Feb, [facility] [address] [id number] [address] [place] [address], [place] [address] Feb, [facility] [address] [id number] [address] [place] [address], [place] [address] Feb, [facility] [address] [id number] [address] [place] [address], [place] [address] Feb, [facility] [address] [id number] [address] [place] [address], [place] [address] Feb, [facility] [address] [id number] [address] [place] [address], [place] [address] Feb, [facility] [address] [id number] [address] [place] [address], [place] [address] Jan, [facility] [address] [id number] [address] [place] [address], [place] [address] Jan, [facility] [address] [id number] [facility] [place] [address] Jan, [facility] [address] [id number] [address] [place] [address], [place] [address] Jan, [facility] [address] [id number] [address] [place] [address], [place] [address] Dec, [facility] [address] [id number] [address] [place] [address], [place] [address] Dec, [facility] [address] [id number] [address] [place] [address], [place] [address] Nov, [facility] [address] [id number] [address] [place] [address], [place] [address] Nov, [facility] [address] [id number] [address] [place] [address], [place] [address] Nov, [facility] [address] [id number] [address] [place] [address], [place] [address] Nov, [facility] [address] [id number] [address] [place] [address], [place] [address] Nov, [facility] [address] [id number] [address] [place] [address], [place] [address] Oct, [facility] [address] [id number] [address] [place] [address], [place] [address] Oct, [facility] [address] [id number] [address] [place] [address], [place] [address] Oct, [facility] [address] [id number] [address] [place] [address], [place] [address] Oct, [facility] [address] [id number] [address] [place] [address], [place] [id number] Oct, [facility] [address] [id number] [address] [place] [address], [place] [address] Oct, [facility] [address] [id number] [place] [address] Oct, [facility] [address] [facility] [id number] [address] [place] [id number] Oct, [facility] [address] [facility] [id number] [address] [place] [id number] Sep, IMMUNIZATIONS No Known Immunizations SOCIAL HISTORY Never Assessed REASON FOR VISIT PLAN OF CARE VITAL SIGNS Height 62 in 2015-01-25 Weight 187.99 lbs 2015-01-25 Temperature 98.2 degrees Fahrenheit 2015-01-25 Heart Rate 76 bpm 2015-01-25 Respiratory Rate 24 2015-01-25 Blood pressure systolic 144 mmHg 2015-01-25 Blood pressure diastolic 62 mmHg 2015-01-25 MEDICATIONS Unknown Medications RESULTS No Results PROCEDURES Procedure Date Ordered Result Body Site VISIT January 25, 2015 INSTRUCTIONS MEDICATIONS ADMINISTERED No Known Medications MEDICAL (GENERAL) HISTORY Type Description Date Medical History aortic abdominal aneurysm moderate 04/06 18 Medical History illiac aneurysm 03/2018 Surgical History No Surgical history information Hospitalization History [facility], [place]- Urosepsis, ab d pain and fever, discharged 11/27/2017 11/26/2017 Hospitalization History [facility]- Went Unrepsonsive, Hit head 2017 Hospitalization History [facility]- Back Pain 8
--- OUTSIDE RECORDS SUMMARY | 2020-06-18 15:25 | XMS REPORT ---
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 Wood Name Role Phone ELIZABETHROYASHARIF Unavailable PROBLEMS Type Condition ICD9-CM Code QQT86-QT Code Onset Dates Condition S tatus SNOMED Code Problem Coronary artery disease I25.10 Active 67079274 Problem Hypertension I10 Active 6080760 3 Problem Other chronic pain G89.29 Active 8 5940336 Problem Hyperlipidemia E78.5 Active 54212 004 Problem Type 2 diabetes mellitus wit hout complication, without long-term current use of insulin E11.9 Active 234051482 Problem Low back pain M54.5 Active 560768 009 Problem Pharyngeal dysphagia R13.13 Active 54373670526664 Problem Anxiety F41.9 Active 42485025 Problem Peripheral vascular disease I73.9 Ac tive 736187646 Problem Suprapubic catheter Z93.59 Active 264430152 Problem Reactive depression F32.9 Active 16821851 Problem Neurogenic bladder N31.9 Active 3 18341434 Problem Ventral hernia without obstruction or gangrene K43 .9 Active 485356647 Problem Insomnia G47.00 Active 556086826 Problem Paroxysmal atrial fibrillation I48.0 Active 940800486 Problem Postmenopausal atrophic vaginitis N95.2 Active 91197029 Problem Encounter for suprapubic catheter care Z43.5 Active [id number] ALLERGIES No Information ENCOUNTERS Encounter Location Date Diagnosis [facility] [address] [place] [id number] Jun, [place] [address] [address] [facility] [id number] [address] [place] [address] Apr, Via [facility] [address] [place] [id number] Apr, Strain of right shoulder, subsequent enc ounter S46.911D [facility] [place] [address] [id number] [address] [place] [address] 14 Apr, 2019 Via [facility] [address] [place] [id number] 13 Apr, 2019 Type 2 diabetes mellitus without complic ation, without long-term current use of insulin E11.9 and Neurogenic bladder N31.9 Via [facility] [employer] [address] [place] [id number] 11 Apr, 2019 Strain of right shoulder, subsequent enc ounter S46.911D ; History of GI bleed Z87.19 ; Neurogenic bladder N31.9 and Reactive depression F32.9 [place] [address] [id number] [address] [place] [address] 10 Apr, 2019 Acute pain of left shoulder M25.512 [place] [address] [id number] [address] [place] [address] 07 Apr, 2019 [place] [address] [id number] [address] [place] [address] Apr, Anxiety F41.9 and 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 Via [facility] [employer] [address] [place] [id number] March, Gastrointestinal hemorrhage associated w ith acute gastritis K29.01 [facility] [place] [address] [id number] [address] [place] [address] March, Via [facility] [employer] [address] [place] [id number] March, Bronchitis J40 [facility] [place] [address] [id number] [address] [place] [address] March, Cough R05 [facility] [place] [address] [id number] [address] [place] [address] March, Other chronic pain G89.29 [facility] [place] [address] [id number] [address] [place] [address] March, Anxiety F41.9 [facility] [place] [address] [id number] [address] [place] [address] March, [facility] [place] [address] [id number] [address] [place] [address] Feb, Other chronic pain G89.29 [facility] [place] [address] [id number] [address] [place] [address] Feb, Anxiety F41.9 [facility] [place] [address] [id number] [address] [place] [address] Feb, Other chronic pain G89.29 [facility] [address] [place] [id number] Feb, Neurogenic bladder N31.9 and Suprapubic catheter Z93.59 [facility] [place] [address] [id number] [address] [place] [address] Jan, Anxiety F41.9 [facility] [place] [address] [id number] [address] [place] [address] Dec, Anxiety F41.9 [facility] [place] [address] [id number] [address] [place] [address] Dec, Other chronic pain G89.29 an d Anxiety F41.9 [facility] [place] [address] [id number] [address] [place] [address] Dec, Via [facility] [address] [place] [id number] Dec, Neurogenic bladder N31.9 and Suprapubic catheter Z93.59 [facility] [place] [address] [id number] [address] [place] [address] Nov, Other chronic pain G89.29 an d Anxiety F41.9 [facility] [place] [address] [id number] [address] [place] [address] Nov, Via [facility] [employer] [address] [place] [id number] Nov, Suprapubic catheter Z93.59 [facility] [place] [address] [id number] [address] [place] [address] Oct, Other chronic pain G89.29 an d Anxiety F41.9 [facility] [place] [address] [id number] [address] [place] [address] Oct, [facility] [place] [address] [id number] [address] [place] [address] Oct, Suprapubic catheter Z93.59 [facility] [place] [address] [id number] [address] [place] [address] Oct, Via [employer] [address] [place] [id number] Oct, [facility] [place] [address] [id number] [address] [place] [address] Oct, Anxiety F41.9 [facility] [place] [address] [id number] [address] [place] [address] Oct, Anxiety F41.9 Via [employer] [address] [place] [id number] Oct, Other chronic pain G89.29 [facility] [place] [address] [id number] [address] [place] [address] Sep, Other chronic pain G89.29 Via [facility] [employer] [address] [place] [id number] Sep, Suprapubic catheter Z93.59 and Cervicalg ia M54.2 [facility] [place] [address] [id number] [address] [place] [address] Sep, [facility] [place] [address] [id number] [address] [place] [address] Sep, [facility] [place] [address] [id number] [address] [place] [address] Sep, Via [facility] [employer] [address] [place] [id number] Aug, Cystitis N30.90 [facility] [place] [address] [id number] [address] [place] [address] Aug, [facility] [place] [address] [id number] [address] [place] [address] Aug, Other chronic pain G89.29 [facility] [place] [address] [id number] [address] [place] [address] Aug, Via [employer] [address] [place] [id number] Aug, Encounter for suprapubic catheter care Z 43.5 [facility] [place] [address] [id number] [address] [place] [phone] 20 Jul, 2018 Via [employer] [address] [place] [id number] Jul, [facility] [place] [address] [id number] [address] [place] [address] Jul, Other chronic pain G89.29 [facility] [place] [address] [id number] [address] [place] [address] Jul, [facility] [place] [address] [id number] [address] [place] [address] Jul, Via [employer] [address] [place] [id number] Jun, Postmenopausal atrophic vaginitis N95.2 [facility] [place] [address] [id number] [address] [place] [address] Jun, Other chronic pain G89.29 [facility] [place] [address] [id number] [address] [place] [address] Jun, Via [employer] [address] [place] [id number] May, Anxiety F41.9 ; Type 2 diabetes mellitus without complication, without long-term current use of insulin E11.9 ; Hypertension I10 ; Low back pain M54.5 ; Paroxysmal atrial fibrillation I48.0 and 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 [facility] [place] [address] [id number] [address] [place] [address] May, Other chronic pain G89.29 Via [employer] [address] [place] [id number] May, Low back pain M54.5 [facility] [place] [address] [id number] [address] [place] [phone] 17 May, 2018 [facility] [place] [address] [id number] [address] [place] [address] Apr, Other chronic pain G89.29 [facility] [place] [address] [id number] [address] [place] [address] Apr, [facility] [place] [address] [id number] [address] [place] [address] Apr, Via [facility] [address] [place] [id number] Apr, Closed compression fracture of L3 lumbar vertebra with routine healing, subsequent encounter S32.030D Via [facility] [address] [place] [id number] Apr, Low back pain M54.5 Via [facility] [address] [place] [id number] Apr, Coccydynia M53.3 [facility] [place] [address] [id number] [address] [place] [address] March, [facility] [place] [address] [id number] [address] [place] [address] March, Other chronic pain G89.29 [facility] [place] [address] [id number] [address] [place] [address] March, [facility] [place] [address] [id number] [address] [place] [address] March, [facility] [place] [address] [id number] [address] [place] [address] Feb, [facility] [place] [address] [id number] [address] [place] [address] Feb, Other chronic pain G89.29 [facility] [employer] [address] [place] [id number] Feb, Other chronic pain G89.29 and Anxiety F4 1.9 [facility] [place] [address] [facility] [id number] [address] [place] [phone] Feb, [facility] [place] [address] [id number] [address] [place] [address] Jan, [facility] [place] [address] [facility] [id number] [address] [place] [address] Jan, [facility] [place] [address] [id number] [address] [place] [address] Jan, [facility] [place] [address] [facility] [id number] [address] [place] [phone] Jan, [facility] [place] [address] [facility] [id number] [address] [place] [address] Dec, Via [facility] [employer] [address] [place] [id number] Dec, Peripheral vascular disease I73.9 ; 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 ADRIENNE SANCHEZ [id number] [place] [address] Nov, [facility] [address] [id number] [place] [id number] Nov, Anxiety F41.9 [facility] [place] [address] [facility] [id number] [address] [place] [address] Nov, [facility] [address] [id number] [place] [id number] Nov, Anxiety F41.9 [facility] [employer] [address] [place] [id number] Nov, Status post surgery Z98.890 ; Confused R 41.0 ; Anxiety F41.9 and Other chronic pain G89.29 [facility] [address] [id number] [place] [id number] Nov, Other chronic pain G89.29 [facility] [place] [address] [id number] [address] [place] [address] Oct, [facility] [address] [id number] [place] [id number] Oct, Other chronic pain G89.29 [facility] [place] [address] [id number] [address] [place] [address] Oct, Anxiety F41.9 [facility] [address] [id number] [place] [id number] Sep, Other chronic pain G89.29 [facility] [address] [id number] [place] [id number] Sep, [facility] [address] [facility] [place] [id number] Aug, Dysuria R30.0 and Anxiety F41.9 [facility] [place] [address] [id number] [address] [place] [address] Aug, [facility] [address] [id number] [place] [id number] Aug, Other chronic pain G89.29 [facility] [place] [address] [id number] [address] [place] [address] Jul, Other chronic pain G89.29 [facility] [address] [id number] [place] [id number] Jun, [facility] [address] [id number] [place] [id number] Jun, Other chronic pain G89.29 [facility] [place] [address] [id number] [address] [place] [address] Jun, [facility] [place] [address] [id number] [address] [place] [address] May, Other chronic pain G89.29 [facility] [place] [address] [id number] [address] [place] [address] Apr, Other chronic pain G89.[address] [facility] [address] [place] [id number] Apr, Reactive depression F32.9 and Pharyngeal dysphagia R13.13 [facility] [place] [address] [id number] [address] [place] [address] Apr, Urinary tract infection with out hematuria, site unspecified N39.0 [place] [address] [id number] [address] [place] [address] March, Other chronic pain G89.29 [place] [address] [id number] [address] [place] [address] Feb, Other chronic pain G89.29 [place] [address] [id number] [address] [place] [address] Feb, [facility] [address] [id number] [place] [id number] Feb, Via [facility] [employer] [address] [place] [id number] Feb, Dysuria R30.0 and Ventral hernia without obstruction or gangrene K43.9 [place] [address] [id number] [address] [place] [address] Jan, Other chronic pain G89.29 [facility] [address] [id number] [place] [id number] Dec, Other chronic pain G89.29 [facility] [place] [address] [id number] [address] [place] [address] Nov, Other chronic pain G89.29 Via [facility] [employer] [address] [place] [id number] Nov, Lymphadenitis I88.9 [facility] [place] [address] [id number] [address] [place] [address] Nov, Other chronic pain G89.29 [facility] [place] [address] [id number] [address] [place] [address] Nov, [facility] [address] [id number] [place] [id number] Nov, Other chronic pain G89.[address] [facility] [address] [place] [facility] [place] [id number] Oct, Low back pain M54.5 ; Hypertension I10 a nd Type 2 diabetes mellitus without complication, without long-term current use of insulin E11.9 [facility] [place] [address] [id number] [address] [place] [address] Oct, [facility] [place] [address] [id number] [address] [place] [address] Oct, [facility] [place] [address] [id number] [address] [place] [address] Oct, [facility] [place] [address] [id number] [address] [place] [address] Oct, [facility] [place] [address] [id number] [address] [place] [address] Sep, [facility] [place] [address] [id number] [address] [place] [address] Sep, [facility] [place] [address] [id number] [address] [place] [address] Aug, Other chronic pain G89.29 [facility] [place] [address] [id number] [address] [place] [address] Jul, [facility] [place] [address] [id number] [address] [place] [address] Jul, [facility] [place] [address] [id number] [address] [place] [phone] Jul, [facility] [place] [address] [id number] [address] [place] [address] Jun, [facility] [place] [address] [id number] [address] [place] [address] Jun, Via [facility] [address] [place] [id number] Jun, Low back pain M54.5 ; Other chronic pain G89.29 and Coronary artery disease I25.10 [facility] [place] [address] [id number] [address] [place] [address] Jun, [facility] [place] [address] [id number] [address] [place] [address] May, [facility] [place] [address] [id number] [address] [place] [address] May, [facility] [place] [address] [id number] [address] [place] [address] May, Other chronic pain G89.29 [facility] [place] [address] [id number] [address] [place] [address] May, [facility] [place] [address] [id number] [address] [place] [phone] Apr, [facility] [place] [address] [id number] [address] [place] [phone] Apr, Acute cystitis without hemat uria N30.00 [facility] [place] [address] [id number] [address] [place] [phone] Apr, Acute cystitis without hemat uria N30.00 ; Coronary artery disease I25.10 ; Low back pain M54.5 and Other chronic pain G89.29 [facility] [place] [address] [id number] [address] [place] [phone] Apr, Other chronic pain G89.29 [facility] [place] [address] [id number] [address] [place] [phone] March, Other chronic pain G89.29 [facility] [place] [address] [id number] [address] [place] [phone] 18 Feb, 2016 [facility] [place] [address] [id number] [address] [place] [phone] 15 Feb, 2016 Arthritis M19.90 [facility] [place] [address] [id number] [address] [place] [phone] 13 Feb, 2016 [facility] [place] [address] [id number] [address] [place] [id number] 30 Jan, 2016 [facility] [place] [address] [id number] [address] [place] [phone] Jan, [facility] [place] [address] [id number] [address] [place] [phone] Jan, Other chronic pain G89.29 [facility] [place] [address] [id number] [address] [place] [phone] Jan, Hypertension I10 ; Coronary artery disease I25.10 and Insomnia G47.00 [facility] [place] [facility] [address] [id number] [address] [place] [id number] Jan, [facility] [place] [address] [id number] [address] [place] [id number] Dec, Right hip pain M25.551 [facility] [place] [address] [id number] [address] [place] [id number] Dec, [facility] [place] [address] [facility] [id number] [address] [place] [id number] Dec, [facility] [place] [address] [id number] [address] [place] [id number] Dec, [facility] [place] [address] [facility] [id number] [address] [place] [id number] Dec, Other chronic pain G89.29 [facility] [place] [address] [id number] [address] [place] [phone] Dec, [facility] [place] [address] [facility] [id number] [address] [place] [id number] Nov, [facility] [place] [address] [id number] [address] [place] [phone] Nov, Other chronic pain G89.29 [facility] [place] [address] [id number] [address] [place] [id number] Nov, Right hip pain M25.551 and C oronary artery disease I25.10 [facility] [place] [address] [id number] [address] [place] [id number] Nov, Other chronic pain G89.29 [facility] [place] [address] [id number] [address] [place] [id number] Oct, [facility] [place] [address] [id number] [address] [place] [id number] Oct, [facility] [place] [address] [id number] [address] [place] [id number] Sep, [facility] [place] [address] [id number] [address] [place] [id number] Sep, [facility] [place] [address] [id number] [address] [place] [phone] Aug, [facility] [place] [address] [id number] [address] [place] [id number] Aug, Hypertension I10 ; Coronary artery disease I25.10 and Arthritis M19.90 [facility] [place] [address] [id number] [address] [place] [phone] Jun, [facility] [place] [address] [id number] [address] [place] [phone] Jun, Essential hypertension, jayson gn 401.1 ; Other chronic pain 338.29 and Chronic airway obstruction, not elsewhere classified 496 [facility] [place] [address] [id number] [address] [place] [id number] Jun, [facility] [place] [address] [id number] [address] [place] [phone] Jun, [facility] [address] [id number] [address] [place] [address], [place] [address] Jun, [facility] [address] [id number] [address] [place] [address], [place] [address] May, [facility] [address] [id number] [address] [place] [address], [place] [address] May, [facility] [address] [id number] [address] [place] [address], [place] [address] Apr, [facility] [address] [id number] [address] [place] [address], [place] [address] Apr, [facility] [address] [id number] [address] [place] [address], [place] [address] Apr, [facility] [address] [id number] [address] [place] [address], [place] [address] March, [facility] [address] [id number] [address] [place] [address], [place] [address] March, [facility] [address] [id number] [address] [place] [address], [place] [address] March, [facility] [address] [id number] [address] [place] [address], [place] [address] March, [facility] [address] [id number] [address] [place] [address], [place] [address] March, Sialadenitis 527.2 [facility] [address] [id number] [address] [place] [address], [place] [address] Feb, [facility] [address] [id number] [address] [place] [address], [place] [address] Feb, [facility] [address] [id number] [address] [place] [address], [place] [address] Feb, [facility] [address] [id number] [address] [place] [address], [place] [address] Feb, [facility] [address] [id number] [address] [place] [address], [place] [address] 13 Feb, 2015 [facility] [address] [id number] [address] [place] [address], [place] [address] Jan, [facility] [address] [id number] [address] [place] [address], [place] [address] Jan, [facility] [address] [id number] [address] [place] [address], [place] [address] Jan, [facility] [address] [id number] [address] [place] [address], [place] [address] Jan, [facility] [address] [id number] [address] [place] [address], [place] [address] Jan, [facility] [address] [id number] [address] [place] [address], [place] [address] Jan, [facility] [address] [id number] [address] [place] [address], [place] [address] Dec, [facility] [address] [id number] [address] [place] [address], [place] [address] Dec, [facility] [address] [id number] [address] [place] [address], [place] [address] Dec, [facility] [address] [id number] [address] [place] [address], [place] [address] Dec, [facility] [address] [id number] [address] [place] [address], [place] [address] Dec, [facility] [address] [id number] [address] [place] [address], [place] [address] Dec, [facility] [address] [id number] [address] [place] [address], [place] [address] Nov, [facility] [address] [id number] [address] [place] [address], [place] [address] Nov, [facility] [address] [id number] [address] [place] [address], [place] [address] Nov, [facility] [address] [id number] [address] [place] [address], [place] [address] Nov, [facility] [address] [id number] [address] [place] [address], [place] [address] Nov, [facility] [address] [id number] [address] [place] [address], [place] [address] Nov, [facility] [address] [id number] [address] [place] [address], [place] [address] Nov, [facility] [address] [id number] [address] [place] [address], [place] [address] Nov, [facility] [address] [id number] [address] [place] [address], [place] [address] Nov, [facility] [address] [id number] [address] [place] [address], [place] [address] Nov, [facility] [address] [id number] [address] [place] [address], [place] [address] Nov, [facility] [address] [id number] [address] [place] [address], [place] [address] Nov, [facility] [address] [id number] [address] [place] [address], [place] [address] Nov, [facility] [address] [id number] [address] [place] [address], [place] [address] Nov, [facility] [address] [id number] [address] [place] [address], [place] [address] Oct, [facility] [address] [id number] [address] [place] [address], [place] [address] Oct, [facility] [address] [id number] [address] [place] [address], [place] [address] Oct, [facility] [address] [id number] [address] [place] [address], [place] [address] Oct, [facility] [address] [id number] [address] [place] [address], [place] [address] 18 Oct, 2014 [facility] [address] [id number] [address] [place] [address], [place] [address] 17 Oct, 2014 [facility] [address] [id number] [address] [place] [address], [place] [address] Oct, [facility] [address] [id number] [address] [place] [address], [place] [address] Oct, [facility] [address] [id number] [address] [place] [address], [place] [address] Oct, [facility] [address] [id number] [address] [place] [address], [place] [address] Sep, [facility] [address] [id number] [address] [place] [address], [place] [address] Sep, [facility] [address] [id number] [address] [place] [address], [place] [address] Sep, [facility] [address] [id number] [address] [place] [address], [place] [address] Sep, [facility] [address] [id number] [address] [place] [address], [place] [address] Sep, [facility] [address] [id number] [address] [place] [address], [place] [address] Sep, [facility] [address] [id number] [address] [place] [address], [place] [address] Sep, [facility] [address] [id number] [address] [place] [address], [place] [address] Sep, [facility] [address] [id number] [address] [place] [address], [place] [address] Sep, [facility] [address] [id number] [address] [place] [address], [place] [address] Sep, [facility] [address] [id number] [address] [place] [address], [place] [address] Sep, [facility] [address] [id number] [address] [place] [address], [place] [address] Sep, [facility] [address] [id number] [address] [place] [address], [place] [address] 30 Aug, 2014 [facility] [address] [id number] [address] [place] [address], [place] [address] 30 Aug, 2014 [facility] [address] [id number] [address] [place] [address], [place] [address] Aug, [facility] [address] [id number] [address] [place] [address], [place] [address] 29 Aug, 2014 [facility] [address] [id number] [address] [place] [address], [place] [address] Aug, [facility] [address] [id number] [address] [place] [address], [place] [address] Aug, [facility] [address] [id number] [address] [place] [address], [place] [address] 17 Aug, 2014 [facility] [address] [id number] [address] [place] [address], [place] [address] 17 Aug, 2014 [facility] [address] [id number] [address] [place] [address], [place] [address] 30 Jul, 2013 [facility] [address] [id number] [address] [place] [address], [place] [address] 30 Sep, 2013 [facility] [address] [id number] [address] [place] [address], [place] [address] 30 Sep, 2013 [facility] [address] [id number] [address] [place] [address], [place] [address] 30 Sep, 2013 [facility] [address] [id number] [address] [place] [address], [place] [address] 25 Sep, 2013 [facility] [address] [id number] [address] [place] [address], [place] [address] 25 Sep, 2013 [facility] [address] [id number] [address] [place] [address], [place] [address] 15 Jul, 2014 [facility] [address] [id number] [facility] [place] [address] Jul, [facility] [address] [id number] [address] [place] [address], [place] [address] Jul, [facility] [address] [id number] [address] [place] [address], [place] [address] Jul, [facility] [address] [id number] [address] [place] [address], [place] [address] Jun, [facility] [address] [id number] [address] [place] [address], [place] [address] Jun, [facility] [address] [id number] [address] [place] [address], [place] [address] Jun, [facility] [address] [id number] [address] [place] [address], [place] [address] Jun, [facility] [address] [id number] [address] [place] [address], [place] [address] Jun, [facility] [address] [id number] [address] [place] [address], [place] [address] Jun, [facility] [address] [id number] [address] [place] [address], [place] [address] Jun, [facility] [address] [id number] [address] [place] [address], [place] [address] Jun, [facility] [address] [id number] [address] [place] [address], [place] [address] Jun, [facility] [address] [id number] [address] [place] [address], [place] [address] Jun, [facility] [address] [id number] [address] [place] [address], [place] [address] Jun, [facility] [address] [id number] [address] [place] [address], [place] [address] Jun, [facility] [address] [id number] [facility] [place] [address] Jun, [facility] [address] [id number] [facility] [place] [address] Jun, [facility] [address] [id number] [facility] [place] [address] Jun, [facility] [address] [id number] [address] [place] [address], [place] [address] Jun, [facility] [address] [id number] [address] [place] [address], [place] [address] Jun, [facility] [address] [id number] [address] [place] [address], [place] [address] Jun, [facility] [address] [id number] [address] [place] [address], [place] [address] Jun, [facility] [address] [id number] [address] [place] [address], [place] [address] Jun, [facility] [address] [id number] [address] [place] [address], [place] [address] Jun, [facility] [address] [id number] [address] [place] [address], [place] [address] Jun, [facility] [address] [id number] [address] [place] [address], [place] [address] May, [facility] [address] [id number] [address] [place] [address], [place] [address] May, [facility] [address] [id number] [address] [place] [address], [place] [address] May, [facility] [address] [id number] [address] [place] [address], [place] [address] May, [facility] [address] [id number] [address] [place] [address], [place] [address] May, [facility] [address] [id number] [address] [place] [address], [place] [address] May, [facility] [address] [id number] [facility] [place] [address] May, 2013 [facility] [address] [id number] [address] [place] [address], [place] [address] May, 2013 [facility] [address] [id number] [address] [place] [address], [place] [address] May, 2013 [facility] [address] [id number] [address] [place] [address], [place] [address] May, 2013 [facility] [address] [id number] [address] [place] [address], [place] [address] May, 2013 [facility] [address] [id number] [address] [place] [address], [place] [address] May, 2013 [facility] [address] [id number] [address] [place] [address], [place] [address] May, 2013 [facility] [address] [id number] [address] [place] [address], [place] [address] Apr, [facility] [address] [id number] [address] [place] [address], [place] [address] Apr, [facility] [address] [id number] [address] [place] [address], [place] [address] Apr, [facility] [address] [id number] [address] [place] [address], [place] [address] Apr, [facility] [address] [id number] [address] [place] [address], [place] [address] Apr, [facility] [address] [id number] [address] [place] [address], [place] [address] Apr, [facility] [address] [id number] [address] [place] [address], [place] [address] Apr, [facility] [address] [id number] [address] [place] [address], [place] [address] Apr, [facility] [address] [id number] [address] [place] [address], [place] [address] Apr, [facility] [address] [id number] [facility] [place] [address] March, [facility] [address] [id number] [address] [place] [address], [place] [address] March, [facility] [address] [id number] [address] [place] [address], [place] [address] March, [facility] [address] [id number] [address] [place] [address], [place] [address] March, [facility] [address] [id number] [address] [place] [address], [place] [address] March, [facility] [address] [id number] [address] [place] [address], [place] [address] March, [facility] [address] [id number] [address] [place] [address], [place] [address] March, [facility] [address] [id number] [address] [place] [address], [place] [address] March, [facility] [address] [id number] [address] [place] [address], [place] [address] March, [facility] [address] [id number] [address] [place] [address], [place] [address] March, [facility] [address] [id number] [address] [place] [address], [place] [address] March, [facility] [address] [id number] [address] [place] [address], [place] [address] March, [facility] [address] [id number] [address] [place] [address], [place] [address] March, [facility] [address] [id number] [address] [place] [address], [place] [address] March, [facility] [address] [id number] [address] [place] [address], [place] [address] March, [facility] [address] [id number] [address] [place] [address], [place] [address] March, [facility] [address] [id number] [address] [place] [address], [place] [address] March, [facility] [address] [id number] [address] [place] [address], [place] [address] March, [facility] [address] [id number] [address] [place] [address], [place] [address] March, [facility] [address] [id number] [address] [place] [address], [place] [address] March, [facility] [address] [id number] [address] [place] [address], [place] [address] Feb, [facility] [address] [id number] [address] [place] [address], [place] [address] Feb, [facility] [address] [id number] [address] [place] [address], [place] [address] Feb, [facility] [address] [id number] [address] [place] [address], [place] [address] Feb, [facility] [address] [id number] [address] [place] [address], [place] [address] Feb, [facility] [address] [id number] [address] [place] [address], [place] [address] Feb, [facility] [address] [id number] [address] [place] [address], [place] [address] Feb, [facility] [address] [id number] [address] [place] [address], [place] [address] Feb, [facility] [address] [id number] [address] [place] [address], [place] [address] Jan, [facility] [address] [id number] [address] [place] [address], [place] [address] Jan, [facility] [address] [id number] [address] [place] [address], [place] [address] Jan, [facility] [address] [id number] [facility] [place] [address] 24 Jan, 2014 [facility] [address] [id number] [address] [place] [address], [place] [address] Jan, [facility] [address] [id number] [facility] [place] [address] Jan, [facility] [address] [id number] [address] [place] [address], [place] [address] Jan, [facility] [address] [id number] [address] [place] [address], [place] [address] Jan, [facility] [address] [id number] [address] [place] [address], [place] [address] Jan, [facility] [address] [id number] [address] [place] [address], [place] [address] Jan, [facility] [address] [id number] [address] [place] [address], [place] [address] 27 Dec, 2013 [facility] [address] [id number] [address] [place] [address], [place] [address] Dec, [facility] [address] [id number] [address] [place] [address], [place] [address] Dec, [facility] [address] [id number] [address] [place] [address], [place] [address] 2013 [facility] [address] [id number] [address] [place] [address], [place] [address] 2013 [facility] [address] [id number] [address] [place] [address], [place] [address] 13 Dec, 2013 [facility] [address] [id number] [address] [place] [address], [place] [address] Dec, [facility] [address] [id number] [address] [place] [address], [place] [address] Dec, [facility] [address] [id number] [address] [place] [address], [place] [address] 29 Nov, 2013 [facility] [address] [id number] [address] [place] [address], [place] [address] Nov, [facility] [address] [id number] [address] [place] [address], [place] [address] Nov, [facility] [address] [id number] [address] [place] [address], [place] [address] Nov, [facility] [address] [id number] [address] [place] [address], [place] [address] Nov, [facility] [address] [id number] [address] [place] [address], [place] [address] Nov, [facility] [address] [id number] [address] [place] [address], [place] [address] Nov, [facility] [address] [id number] [address] [place] [address], [place] [address] Nov, [facility] [address] [id number] [address] [place] [address], [place] [address] Nov, [facility] [address] [id number] [address] [place] [address], [place] [address] Nov, [facility] [address] [id number] [address] [place] [address], [place] [address] Nov, [facility] [address] [id number] [address] [place] [address], [place] [address] Nov, [facility] [address] [id number] [address] [place] [address], [place] [address] Nov, [facility] [address] [id number] [address] [place] [address], [place] [address] Oct, [facility] [address] [id number] [address] [place] [address], [place] [address] Oct, [facility] [address] [id number] [address] [place] [address], [place] [address] Oct, [facility] [address] [id number] [address] [place] [address], [place] [address] Oct, [facility] [address] [id number] [address] [place] [address], [place] [address] Oct, [facility] [address] [id number] [address] [place] [address], [place] [address] Oct, [facility] [address] [id number] [address] [place] [address], [place] [address] Oct, [facility] [address] [id number] [address] [place] [address], [place] [address] Oct, [facility] [address] [id number] [address] [place] [address], [place] [address] Oct, [facility] [address] [id number] [address] [place] [address], [place] [address] Oct, [facility] [address] [id number] [address] [place] [address], [place] [address] Oct, [facility] [address] [id number] [address] [place] [address], [place] [address] Oct, [facility] [address] [id number] [address] [place] [address], [place] [address] Oct, [facility] [address] [id number] [address] [place] [address], [place] [address] Oct, [facility] [address] [id number] [address] [place] [address], [place] [address] 14 Sep, 2013 [facility] [address] [id number] [address] [place] [address], [place] [address] Sep, [facility] [address] [id number] [address] [place] [address], [place] [address] 05 Sep, 2013 [facility] [address] [id number] [address] [place] [address], [place] [address] 05 Sep, 2013 [facility] [address] [id number] [address] [place] [address] Sep, [facility] [address] [id number] [address] [place] [address], [place] [address] Sep, [facility] [address] [id number] [address] [place] [address] Sep, [facility] [address] [id number] [address] [place] [address] Sep, [facility] [address] [id number] [address] [place] [address] Sep, [facility] [address] [id number] [address] [place] [address], [place] [address] Sep, [facility] [address] [id number] [address] [place] [address], [place] [address] Aug, [facility] [address] [id number] [address] [place] [address] Aug, [facility] [address] [id number] [address] [place] [address] Aug, [facility] [address] [id number] [address] [place] [address] Aug, [facility] [address] [id number] [address] [place] [address] Aug, [facility] [address] [id number] [address] [place] [address] Aug, [facility] [address] [id number] [address] [place] [address] Aug, [facility] [address] [id number] [address] [place] [address] Aug, [facility] [address] [id number] [address] [place] [address] Aug, [facility] [address] [id number] [address] [place] [id number] Aug, [facility] [address] [id number] [address] [place] [address], [place] [address] 18 Aug, 2012 [facility] [address] [id number] [address] [place] [address], [place] [address] 18 Aug, 2013 [facility] [address] [id number] [address] [place] [address], [place] [address] 18 Aug, 2012 [facility] [address] [id number] [address] [place] [address], [place] [address] 18 Aug, 2012 [facility] [address] [id number] [address] [place] [address], [place] [address] 17 Aug, 2012 [facility] [address] [id number] [address] [place] [address], [place] [address] 14 Aug, 2013 [facility] [address] [id number] [address] [place] [address], [place] [address] 14 Aug, 2013 [facility] [address] [id number] [address] [place] [address], [place] [address] 01 Aug, 2013 [facility] [address] [id number] [address] [place] [address], [place] [address] 20 Jul, 2013 [facility] [address] [id number] [address] [place] [address], [place] [address] 19 Jul, 2013 [facility] [address] [id number] [address] [place] [address], [place] [address] 18 Jul, 2013 [facility] [address] [id number] [address] [place] [address], [place] [address] 11 Jul, 2013 [facility] [address] [id number] [address] [place] [address], [place] [address] 11 Jul, 2013 [facility] [address] [id number] [address] [place] [address], [place] [address] Jun, [facility] [address] [id number] [address] [place] [address], [place] [address] Jun, [facility] [address] [id number] [address] [place] [address], [place] [address] Jun, [facility] [address] [id number] [facility] [place] [address] Jun, [facility] [address] [id number] [address] [place] [address], [place] [address] Jun, [facility] [address] [id number] [address] [place] [address], [place] [address] Jun, [facility] [address] [id number] [address] [place] [address], [place] [address] Jun, [facility] [address] [id number] [address] [place] [address], [place] [address] Jun, [facility] [address] [id number] [address] [place] [address], [place] [address] Jun, [facility] [address] [id number] [address] [place] [address], [place] [address] Jun, [facility] [address] [id number] [address] [place] [address], [place] [address] May, [facility] [address] [id number] [address] [place] [address], [place] [address] May, [facility] [address] [id number] [address] [place] [address], [place] [address] May, [facility] [address] [id number] [address] [place] [address], [place] [address] May, [facility] [address] [id number] [address] [place] [address], [place] [address] May, [facility] [address] [id number] [address] [place] [address], [place] [address] May, [facility] [address] [id number] [address] [place] [address], [place] [address] May, [facility] [address] [id number] [address] [place] [address], [place] [address] May, [facility] [address] [id number] [address] [place] [address], [place] [address] May, [facility] [address] [id number] [address] [place] [address], [place] [address] Apr, [facility] [address] [id number] [address] [place] [address], [place] [address] Apr, [facility] [address] [id number] [address] [place] [address], [place] [address] Apr, [facility] [address] [id number] [address] [place] [address], [place] [address] Apr, [facility] [address] [id number] [address] [place] [address], [place] [address] Apr, [facility] [address] [id number] [address] [place] [address], [place] [address] Apr, [facility] [address] [id number] [address] [place] [address], [place] [address] Apr, [facility] [address] [id number] [address] [place] [address], [place] [address] March, [facility] [address] [id number] [address] [place] [address], [place] [address] Feb, [facility] [address] [id number] [address] [place] [address], [place] [address] Feb, [facility] [address] [id number] [address] [place] [address], [place] [address] Feb, [facility] [address] [id number] [address] [place] [address], [place] [address] 28 Jan, 2013 [facility] [address] [id number] [address] [place] [address], [place] [address] 21 Jan, 2013 [facility] [address] [id number] [address] [place] [address], [place] [address] 19 Jan, 2013 [facility] [address] [id number] [address] [place] [address], [place] [address] 14 Jan, 2013 [facility] [address] [id number] [address] [place] [address], [place] [address] 12 Jan, 2013 [facility] [address] [id number] [address] [place] [address], [place] [address] 08 Jan, 2013 [facility] [address] [id number] [address] [place] [address], [place] [address] 07 Jan, 2013 [facility] [address] [id number] [address] [place] [address], [place] [address] 04 Jan, 2013 [facility] [address] [id number] [address] [place] [address], [place] [address] 28 Dec, 2012 [facility] [address] [id number] [address] [place] [address], [place] [address] 25 Dec, 2012 [facility] [address] [id number] [address] [place] [address], [place] [address] 13 Dec, 2012 [facility] [address] [id number] [address] [place] [address], [place] [address] 11 Dec, 2012 [facility] [address] [id number] [address] [place] [address], [place] [address] 07 Dec, 2012 [facility] [address] [id number] [address] [place] [address], [place] [address] 06 Dec, 2012 [facility] [address] [id number] [address] [place] [address], [place] [address] 05 Dec, 2012 [facility] [address] [id number] [address] [place] [address], [place] [address] 31 Nov, 2012 [facility] [address] [id number] [address] [place] [address], [place] [address] 24 Nov, 2012 [facility] [address] [id number] [address] [place] [address], [place] [address] 18 Nov, 2012 [facility] [address] [id number] [address] [place] [address], [place] [address] 15 Nov, 2012 [facility] [address] [id number] [address] [place] [address], [place] [address] 10 Nov, 2012 [facility] [address] [id number] [address] [place] [address], [place] [address] 10 Nov, 2012 [facility] [address] [id number] [address] [place] [address], [place] [address] 02 Nov, 2012 [facility] [address] [id number] [address] [place] [address], [place] [address] Oct, [facility] [address] [id number] [address] [place] [address], [place] [address] Oct, [facility] [address] [id number] [address] [place] [address], [place] [address] Oct, [facility] [address] [id number] [address] [place] [address], [place] [address] Oct, [facility] [address] [id number] [address] [place] [address], [place] [address] Oct, [facility] [address] [id number] [address] [place] [address], [place] [address] 17 Oct, 2012 [facility] [address] [id number] [address] [place] [address], [place] [address] Oct, [facility] [address] [id number] [address] [place] [address], [place] [address] 07 Oct, 2012 [facility] [address] [id number] [address] [place] [address], [place] [address] 05 Oct, 2012 [facility] [address] [id number] [address] [place] [address], [place] [address] 05 Oct, 2012 [facility] [address] [id number] [address] [place] [address], [place] [address] 04 Oct, 2012 [facility] [address] [id number] [address] [place] [address], [place] [address] 04 Oct, 2012 [facility] [address] [id number] [address] [place] [address], [place] [address] Sep, [facility] [address] [id number] [address] [place] [address], [place] [address] Sep, [facility] [address] [id number] [address] [place] [address], [place] [address] Sep, [facility] [address] [id number] [address] [place] [address], [place] [address] Sep, [facility] [address] [id number] [address] [place] [address], [place] [address] Sep, [facility] [address] [id number] [address] [place] [address], [place] [address] Sep, [facility] [address] [id number] [address] [place] [address], [place] [address] Sep, [facility] [address] [id number] [address] [place] [address], [place] [address] Sep, [facility] [address] [id number] [address] [place] [address], [place] [address] Sep, [facility] [address] [id number] [address] [place] [address], [place] [address] Sep, [facility] [address] [id number] [address] [place] [address], [place] [address] Sep, [facility] [address] [id number] [address] [place] [address], [place] [address] Aug, [facility] [address] [id number] [address] [place] [address], [place] [address] Aug, [facility] [address] [id number] [address] [place] [address], [place] [address] Aug, [facility] [address] [id number] [address] [place] [address], [place] [address] Aug, [facility] [address] [id number] [address] [place] [address], [place] [address] Aug, [facility] [address] [id number] [address] [place] [address], [place] [address] Aug, [facility] [address] [id number] [address] [place] [address], [place] [address] Aug, [facility] [address] [id number] [address] [place] [address], [place] [address] Aug, [facility] [address] [id number] [address] [place] [address], [place] [address] Aug, [facility] [address] [id number] [address] [place] [address], [place] [address] Aug, [facility] [address] [id number] [address] [place] [address], [place] [address] Jul, [facility] [address] [id number] [address] [place] [address], [place] [address] Jul, [facility] [address] [id number] [address] [place] [address], [place] [address] Jul, [facility] [address] [id number] [address] [place] [address], [place] [address] Jul, [facility] [address] [id number] [address] [place] [address], [place] [address] Jun, [facility] [address] [id number] [address] [place] [address], [place] [address] Jun, [facility] [address] [id number] [address] [place] [address], [place] [address] Jun, [facility] [address] [id number] [address] [place] [address], [place] [address] Jun, [facility] [address] [id number] [address] [place] [address], [place] [address] Jun, [facility] [address] [id number] [address] [place] [address], [place] [address] Jun, [facility] [address] [id number] [address] [place] [address], [place] [address] Jun, [facility] [address] [id number] [address] [place] [address], [place] [address] 24 May, 2012 [facility] [address] [id number] [address] [place] [address], [place] [address] May, [facility] [address] [id number] [address] [place] [address], [place] [address] May, [facility] [address] [id number] [address] [place] [address], [place] [address] May, [facility] [address] [id number] [address] [place] [address], [place] [address] May, [facility] [address] [id number] [address] [place] [address], [place] [address] Apr, [facility] [address] [id number] [address] [place] [address], [place] [address] Apr, [facility] [address] [id number] [address] [place] [address], [place] [address] Apr, [facility] [address] [id number] [address] [place] [address], [place] [address] Apr, [facility] [address] [id number] [address] [place] [address], [place] [address] Apr, [facility] [address] [id number] [address] [place] [address], [place] [address] March, [facility] [address] [id number] [address] [place] [address], [place] [address] March, [facility] [address] [id number] [address] [place] [address], [place] [address] March, [facility] [address] [id number] [address] [place] [address], [place] [address] March, [facility] [address] [id number] [address] [place] [address], [place] [address] March, [facility] [address] [id number] [address] [place] [address], [place] [address] March, [facility] [address] [id number] [address] [place] [address], [place] [address] March, [facility] [address] [id number] [address] [place] [address], [place] [address] March, [facility] [address] [id number] [address] [place] [address], [place] [address] March, [facility] [address] [id number] [address] [place] [address], [place] [address] March, [facility] [address] [id number] [address] [place] [address], [place] [address] Feb, [facility] [address] [id number] [address] [place] [address], [place] [address] Feb, [facility] [address] [id number] [address] [place] [address], [place] [address] Feb, [facility] [address] [id number] [address] [place] [address], [place] [address] Feb, [facility] [address] [id number] [address] [place] [address], [place] [address] Feb, [facility] [address] [id number] [address] [place] [address], [place] [address] Feb, [facility] [address] [id number] [address] [place] [address], [place] [address] Feb, [facility] [address] [id number] [address] [place] [address], [place] [address] Feb, [facility] [address] [id number] [address] [place] [address], [place] [address] Feb, [facility] [address] [id number] [address] [place] [address], [place] [address] Jan, [facility] [address] [id number] [address] [place] [address], [place] [address] Jan, [facility] [address] [id number] [address] [place] [address], [place] [id number] 05 Jan, 2012 [facility] [address] [id number] [address] [place] [address], [place] [address] Jan, [facility] [address] [id number] [address] [place] [address], [place] [address] 29 Dec, 2011 [facility] [address] [id number] [address] [place] [address], [place] [address] Dec, [facility] [address] [id number] [address] [place] [address], [place] [address] Nov, [facility] [address] [id number] [address] [place] [address], [place] [address] Nov, [facility] [address] [id number] [address] [place] [address], [place] [address] Nov, [facility] [address] [id number] [address] [place] [address], [place] [address] Nov, [facility] [address] [id number] [address] [place] [address], [place] [address] Nov, [facility] [address] [id number] [address] [place] [address], [place] [address] Oct, [facility] [address] [id number] [address] [place] [address], [place] [address] Oct, [facility] [address] [id number] [address] [place] [address], [place] [address] Oct, [facility] [address] [id number] [address] [place] [address], [place] [address] Oct, [facility] [address] [id number] [address] [place] [address], [place] [address] Oct, [facility] [address] [id number] [address] [place] [address], [place] [address] Oct, [facility] [address] [id number] [address] [place] [address], [place] [address] Oct, [facility] [place] [address] [facility] [id number] [address] [address] Oct, [facility] [place] [address] [facility] [id number] [address] [place] [id number] Sep, IMMUNIZATIONS No Known Immunizations SOCIAL HISTORY [...] fever, discharged 11/27/2017 11/26/2017 Hospitalization History ED [place]- Went Unrepsonsive, Hit head 2017 Hospitalization History ED [place]- Back Pain 8
[2020-06-18 15:26] VITALS: BP 103/69
--- OUTSIDE RECORDS SUMMARY | 2020-06-18 15:26 | XMS REPORT ---
Author Author Sanjuanita Abdul Doctor Organization [facility] Address Unknown Phone Unavailable Care Team Providers Care Paramedical Aide Name Role Phone Migration, Doctor Unavailable Unavailable PROBLEMS Type Condition ICD9-CM Code YRQ24-QS Code Onset Dates Condition S tatus SNOMED Code Problem Coronary artery disease I25.10 Active 29469448 Problem Hypertension I10 Active 4502933 3 Problem Other chronic pain G89.29 Active 8 8653684 Problem Hyperlipidemia E78.5 Active 19670 004 Problem Type 2 diabetes mellitus wit hout complication, without long-term current use of insulin E11.9 Active 912685712 Problem Low back pain M54.5 Active 797035 009 Problem Pharyngeal dysphagia R13.13 Active 47466250529795 Problem Anxiety F41.9 Active 29674758 Problem Peripheral vascular disease I73.9 Ac tive 342891031 Problem Suprapubic catheter Z93.59 Active 452040206 Problem Reactive depression F32.9 Active 17245700 Problem Neurogenic bladder N31.9 Active 3 15954781 Problem Ventral hernia without obstruction or gangrene K43 .9 Active 856070147 Problem Insomnia G47.00 Active 871036242 Problem Paroxysmal atrial fibrillation I48.0 Active 965334852 Problem Postmenopausal atrophic vaginitis 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 Active 97618009 Problem Encounter for suprapubic catheter care Z43.5 Active 441251551 ALLERGIES Substance Reaction Event Type Date Status Lyrica Unknown Drug Allergy 14 Feb, 2015 Active Hydrochlorothiazide 50 Mg Tablet hypokalemia Non Drug Allergy 14 A , 2014 Active Lisinopril 20 Mg Tablet cough Non Drug Allergy 14 Feb, 2015 Active ENCOUNTERS Encounter Location Date Diagnosis [facility] [address] [place] [id number] Jun, [facility] [address] [place] [id number] Apr, Strain of right shoulder, subsequent enc ounter S46.911D [facility] [address] [facility] [id number] [place] [address] 14 Apr, 2019 Via [facility] [address] [place] [id number] 13 Apr, 2019 Type 2 diabetes mellitus without complic ation, without long-term current use of insulin E11.9 and Neurogenic bladder N31.9 [facility] [address] [place] [id number] 11 Apr, 2019 Strain of right shoulder, subsequent enc ounter S46.911D ; History of GI bleed Z87.19 ; Neurogenic bladder N31.9 and Reactive depression F32.9 [facility] [address] [id number] [address] [place] [address] Apr, Acute pain of left shoulder M25.512 [facility] [address] [id number] [address] [place] [address] Apr, [facility] [address] [id number] [address] [place] [address] Apr, 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 F41.9 and 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 [facility] [address] [place] [id number] March, Gastrointestinal hemorrhage associated w ith acute gastritis K29.01 [facility] [address] [id number] [address] [place] [address] March, [facility] [address] [place] [id number] March, Bronchitis J40 [facility] [address] [id number] [address] [place] [address] March, Cough R05 [facility] [address] [id number] [address] [place] [address] March, Other chronic pain G89.29 [facility] [address] [id number] [address] [place] [address] March, Anxiety F41.9 [facility] [address] [id number] [address] [place] [address] March, [facility] [address] [id number] [address] [place] [address] Feb, Other chronic pain G89.29 [facility] [address] [id number] [address] [place] [id number] Feb, Anxiety F41.9 [facility] [address] [id number] [address] [place] [address] Feb, Other chronic pain G89.29 [facility] [address] [place] [id number] Feb, Neurogenic bladder N31.9 and Suprapubic catheter Z93.59 [facility] [address] [id number] [address] [place] [address] Jan, Anxiety F41.9 [facility] [address] [id number] [address] [place] [address] Dec, Anxiety F41.9 [facility] [address] [id number] [address] [place] [id number] Dec, Other chronic pain G89.29 an d Anxiety F41.9 [facility] [address] [id number] [address] [place] [address] Dec, [facility] [address] [place] [id number] Dec, Neurogenic bladder N31.9 and Suprapubic catheter Z93.59 [facility] [address] [id number] [address] [place] [address] Nov, Other chronic pain G89.29 an d Anxiety F41.9 [facility] [address] [id number] [address] [place] [address] Nov, [facility] [address] [place] [id number] Nov, Suprapubic catheter Z93.59 [facility] [address] [id number] [address] [place] [address] Oct, Other chronic pain G89.29 an d Anxiety F41.9 [facility] [address] [id number] [address] [place] [address] Oct, [facility] [address] [id number] [address] [place] [address] Oct, Suprapubic catheter Z93.59 [facility] [address] [id number] [address] [place] [address] Oct, [facility] [address] [place] [id number] Oct, [facility] [address] [id number] [address] [place] [address] Oct, Anxiety F41.9 [facility] [address] [id number] [address] [place] [address] Oct, Anxiety F41.9 [facility] [address] [place] [id number] Oct, Other chronic pain G89.29 [facility] [address] [id number] [address] [place] [address] Sep, Other chronic pain G89.29 [facility] [address] [place] [id number] Sep, Suprapubic catheter Z93.59 and Cervicalg ia M54.2 [facility] [address] [id number] [address] [place] [address] Sep, [facility] [address] [id number] [address] [place] [address] Sep, [facility] [address] [id number] [address] [place] [address] Sep, Via [facility] [address] [place] [id number] Aug, Cystitis N30.90 [facility] [address] [id number] [address] [place] [address] Aug, [facility] [address] [id number] [address] [place] [address] Aug, Other chronic pain G89.29 [facility] [address] [id number] [address] [place] [address] Aug, [facility] [address] [place] [id number] Aug, Encounter for suprapubic catheter care Z 43.5 [facility] [address] [id number] [address] [place] [address] Jul, Via [facility] [address] [place] [id number] Jul, [facility] [address] [id number] [address] [place] [address] Jul, Other chronic pain G89.29 [facility] [address] [id number] [address] [place] [address] Jul, [facility] [address] [id number] [address] [place] [address] Jul, Via [facility] [address] [place] [id number] Jun, Postmenopausal atrophic vaginitis N95.2 [facility] [address] [id number] [address] [place] [address] Jun, Other chronic pain G89.29 [facility] [address] [id number] [address] [place] [address] Jun, Via [facility] [address] [place] [id number] May, Anxiety F41.9 ; Type 2 diabetes mellitus without complication, without long-term current use of insulin E11.9 ; Hypertension I10 ; Low back pain M54.5 ; Paroxysmal atrial fibrillation I48.0 and 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 [facility] [address] [id number] [address] [place] [address] May, Other chronic pain G89.29 [facility] [address] [place] [id number] May, Low back pain M54.5 [facility] [address] [id number] [address] [place] [address] 17 May, 2018 [facility] [address] [id number] [address] [place] [address] Apr, Other chronic pain G89.29 [facility] [address] [id number] [address] [place] [address] Apr, [facility] [address] [id number] [address] [place] [address] Apr, Via [facility] [address] [place] [id number] Apr, Closed compression fracture of L3 lumbar vertebra with routine healing, subsequent encounter S32.030D [facility] [address] [place] [id number] Apr, Low back pain M54.5 [facility] [address] [place] [id number] Apr, Coccydynia M53.3 [facility] [address] [id number] [address] [place] [address] March, [facility] [address] [id number] [address] [place] [address] March, Other chronic pain G89.29 [facility] [address] [id number] [address] [place] [id number] March, [facility] [address] [id number] [address] [place] [address] March, [facility] [address] [id number] [address] [place] [address] Feb, [facility] [address] [id number] [address] [place] [address] Feb, Other chronic pain G89.29 [facility] [address] [place] [address] Feb, Other chronic pain G89.29 and Anxiety F4 1.9 [facility] [address] [facility] [id number] [address] [place] [address] Feb, [facility] [address] [facility] [id number] [address] [place] [address] Jan, [facility] [address] [facility] [id number] [address] [place] [address] Jan, [facility] [address] [facility] [id number] [address] [place] [address] Jan, [facility] [address] [facility] [id number] [address] [place] [address] Jan, [facility] [address] [facility] [id number] [address] [place] [address] Dec, Via [facility] [employer] [facility] [address] [place] [address] Dec, Peripheral vascular disease I73.9 ; 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 ; Other chronic pain G89.29 ; Anxiety F41.9 ; Reactive depression F32.9 ; Insomnia G47.00 and Type 2 diabetes mellitus without complication, without long-term current use of insulin E11.9 [facility] [facility] [address] [id number] [address] Nov, [facility] [address] [id number] [place] [id number] Nov, Anxiety F41.9 [facility] [address] [facility] [id number] [address] [place] [address] Nov, [facility] [address] [id number] [place] [id number] Nov, Anxiety F41.9 [facility] [employer] [facility] [address] [place] [id number] Nov, Status post surgery Z98.890 ; Confused R 41.0 ; Anxiety F41.9 and Other chronic pain G89.29 [facility] [address] [id number] [place] [id number] Nov, Other chronic pain G89.29 [facility] [address] [id number] [address] [place] [phone] Oct, [facility] [address] [id number] [place] [address] Oct, Other chronic pain G89.29 [facility] [address] [id number] [address] [place] [address], [place] [address] Oct, Anxiety F41.9 [facility] [address] [id number] [place] [id number] Sep, Other chronic pain G89.29 [facility] [address] [id number] [place] [id number] Sep, [facility] [address] [place] [id number] Aug, Dysuria R30.0 and Anxiety F41.9 [facility] [address] [id number] [address] [place] [address] Aug, [facility] [address] [id number] [place] [id number] Aug, Other chronic pain G89.29 [facility] [address] [id number] [address] [place] [address] Jul, Other chronic pain G89.29 [facility] [address] [id number] [place] [id number] Jun, [facility] [address] [id number] [place] [id number] Jun, Other chronic pain G89.29 [facility] [address] [id number] [address] [place] [address] Jun, [facility] [address] [facility] [id number] [address] [place] [address] May, Other chronic pain G89.29 [facility] [address] [id number] [address] [place] [address] Apr, Other chronic pain G89.29 [facility] [employer] [facility] [facility] [address] [place] [id number] Apr, Reactive depression F32.9 and Pharyngeal dysphagia R13.13 [facility] [address] [id number] [address] [place] [address] Apr, Urinary tract infection with out hematuria, site unspecified N39.0 [facility] [address] [id number] [address] [place] [address] March, Other chronic pain G89.29 [facility] [address] [id number] [address] [place] [address] Feb, Other chronic pain G89.29 [facility] [address] [id number] [address] [place] [address] Feb, [facility] [address] [id number] [place] [id number] Feb, Via [facility] [employer] [facility] [address] [place] [id number] Feb, Dysuria R30.0 and Ventral hernia without obstruction or gangrene K43.9 [facility] [address] [id number] [address] [place] [address] Jan, Other chronic pain G89.29 [facility] [address] [id number] [place] [id number] Dec, Other chronic pain G89.29 [facility] [address] [id number] [address] [place] [address] Nov, Other chronic pain G89.29 [facility] [employer] [address] [place] [id number] Nov, Lymphadenitis I88.9 [facility] [address] [id number] [address] [place] [address] Nov, Other chronic pain G89.29 [facility] [address] [id number] [address] [place] [address] Nov, [facility] [id number] [place] [id number] Nov, Other chronic pain G89.29 [facility] [address] [facility] [place] [id number] Oct, Low back pain M54.5 ; Hypertension I10 a nd Type 2 diabetes mellitus without complication, without long-term current use of insulin E11.9 [facility] [address] [id number] [address] [place] [address] Oct, [facility] [address] [id number] [address] [place] [address] Oct, [facility] [address] [id number] [address] [place] [address] Oct, [facility] [address] [id number] [address] [place] [address] Oct, [facility] [address] [id number] [address] [place] [address] Sep, [facility] [address] [id number] [address] [place] [address] Sep, [facility] [address] [id number] [address] [place] [address] Aug, Other chronic pain G89.29 [facility] [address] [id number] [address] [place] [address] Jul, [facility] [address] [id number] [address] [place] [address] Jul, [facility] [address] [id number] [address] [place] [address] Jul, [facility] [address] [id number] [address] [place] [address] Jun, [facility] [address] [id number] [address] [place] [address] Jun, Via [facility] [address] [place] [id number] Jun, Low back pain M54.5 ; Other chronic pain G89.29 and Coronary artery disease I25.10 [facility] [address] [id number] [address] [place] [address] Jun, [facility] [address] [id number] [address] [place] [address] May, [facility] [address] [id number] [address] [place] [address] May, [facility] [address] [id number] [address] [place] [address] May, Other chronic pain G89.29 [facility] [address] [id number] [address] [place] [address] May, [facility] [address] [id number] [address] [place] [address] Apr, [facility] [address] [id number] [address] [place] [address] Apr, Acute cystitis without hemat uria N30.00 [facility] [address] [id number] [address] [place] [address] Apr, Acute cystitis without hemat uria N30.00 ; Coronary artery disease I25.10 ; Low back pain M54.5 and Other chronic pain G89.29 [facility] [address] [id number] [address] [place] [address] Apr, Other chronic pain G89.29 [facility] [address] [id number] [address] [place] [address] March, Other chronic pain G89.29 [facility] [address] [id number] [address] [place] [address] Feb, [facility] [address] [id number] [address] [place] [id number] 15 Feb, 2016 Arthritis M19.90 [facility] [address] [id number] [address] [place] [address] 13 Feb, 2016 [facility] [address] [facility] [id number] [address] [place] [id number] 30 Jan, 2016 [facility] [address] [id number] [address] [place] [address] Jan, [facility] [address] [facility] [id number] [address] [place] [address] Jan, Other chronic pain G89.29 [facility] [address] [facility] [id number] [address] [place] [address] Jan, Hypertension I10 ; Coronary artery disease I25.10 and Insomnia G47.00 [facility] [address] [facility] [id number] [address] [place] [phone] Jan, [facility] [address] [facility] [id number] [address] [place] [address] Dec, Right hip pain M25.551 [facility] [address] [facility] [id number] [address] [place] [id number] Dec, [facility] [address] [facility] [id number] [address] [place] [id number] Dec, [facility] [address] [facility] [id number] [address] [place] [phone] Dec, [facility] [address] [facility] [id number] [address] [place] [phone] Dec, Other chronic pain G89.29 [facility] [address] [id number] [address] [place] [phone] Dec, [facility] [address] [facility] [id number] [address] [place] [id number] Nov, [facility] [address] [id number] [address] [place] [phone] Nov, Other chronic pain G89.29 [facility] [address] [id number] [address] [place] [id number] Nov, Right hip pain M25.551 and C oronary artery disease I25.10 [facility] [address] [id number] [address] [place] [phone] Nov, Other chronic pain G89.29 [facility] [address] [id number] [address] [place] [phone] Oct, [facility] [address] [id number] [address] [place] [phone] Oct, [facility] [address] [id number] [address] [place] [phone] Sep, [facility] [address] [id number] [address] [place] [phone] Sep, [facility] [address] [id number] [address] [place] [phone] Aug, [facility] [address] [facility] [id number] [address] [place] [phone] Aug, Hypertension I10 ; Coronary artery disease I25.10 and Arthritis M19.90 [facility] [address] [id number] [address] [place] [phone] Jun, [facility] [address] [id number] [address] [place] [id number] Jun, Essential hypertension, jayson gn 401.1 ; Other chronic pain 338.29 and Chronic airway obstruction, not elsewhere classified 496 [facility] [address] [id number] [address] [place] [phone] Jun, [facility] [address] [id number] [address] [place] [id number] Jun, [facility] [address] [id number] [address] [place] [address], [place] [id number] Jun, [facility] [address] [id number] [address] [place] [address], [place] [phone] May, [facility] [address] [id number] [address] [place] [address], [place] [phone] May, [facility] [address] [id number] [address] [place] [address], [place] [phone] Apr, [facility] [address] [id number] [address] [place] [address], [place] [address] Apr, [facility] [address] [id number] [address] [place] [address], [place] [address] Apr, [facility] [address] [id number] [address] [place] [address], [place] [address] March, [facility] [address] [id number] [address] [place] [address], [place] [address] March, [facility] [address] [id number] [address] [place] [address], [place] [address] March, [facility] [address] [id number] [address] [place] [address], [place] [address] March, [facility] [address] [id number] [address] [place] [address], [place] [address] March, Sialadenitis 527.2 [facility] [address] [id number] [address] [place] [address], [place] [address] Feb, [facility] [address] [id number] [address] [place] [address], [place] [address] Feb, [facility] [address] [id number] [address] [place] [address], [place] [address] Feb, [facility] [address] [id number] [address] [place] [address], [place] [address] 14 Feb, 2015 [facility] [address] [id number] [address] [place] [address], [place] [address] Feb, [facility] [address] [id number] [address] [place] [address], [place] [address] Jan, [facility] [address] [id number] [address] [place] [address], [place] [address] Jan, [facility] [address] [id number] [address] [place] [address], [place] [address] Jan, [facility] [address] [id number] [address] [place] [address], [place] [address] Jan, [facility] [address] [id number] [address] [place] [address], [place] [address] Jan, [facility] [address] [id number] [address] [place] [address], [place] [address] Jan, [facility] [address] [id number] [address] [place] [address], [place] [address] Dec, [facility] [address] [id number] [address] [place] [address], [place] [address] Dec, 2014 [facility] [address] [id number] [address] [place] [address], [place] [address] Dec, [facility] [address] [id number] [address] [place] [address], [place] [address] Dec, [facility] [address] [id number] [address] [place] [address], [place] [address] Dec, [facility] [address] [id number] [address] [place] [address], [place] [address] Dec, [facility] [address] [id number] [address] [place] [address], [place] [address] Nov, [facility] [address] [id number] [address] [place] [address], [place] [address] Nov, [facility] [address] [id number] [address] [place] [address], [place] [address] Nov, [facility] [address] [id number] [address] [place] [address], [place] [address] Nov, [facility] [address] [id number] [address] [place] [address], [place] [address] Nov, [facility] [address] [id number] [address] [place] [address], [place] [address] Nov, [facility] [address] [id number] [address] [place] [address], [place] [address] Nov, [facility] [address] [id number] [address] [place] [address], [place] [address] Nov, [facility] [address] [id number] [address] [place] [address], [place] [address] Nov, [facility] [address] [id number] [address] [place] [address], [place] [address] Nov, [facility] [address] [id number] [address] [place] [address], [place] [address] Nov, [facility] [address] [id number] [address] [place] [address], [place] [address] Nov, [facility] [address] [id number] [address] [place] [address], [place] [address] Nov, [facility] [address] [id number] [address] [place] [address], [place] [address] Nov, [facility] [address] [id number] [address] [place] [address], [place] [address] Oct, [facility] [address] [id number] [address] [place] [address], [place] [address] Oct, [facility] [address] [id number] [address] [place] [address], [place] [address] Oct, [facility] [address] [id number] [address] [place] [address], [place] [address] Oct, [facility] [address] [id number] [address] [place] [address], [place] [address] Oct, [facility] [address] [id number] [address] [place] [address] Oct, [facility] [address] [id number] [address] [place] [address], [place] [address] Oct, [facility] [address] [id number] [address] [place] [address], [place] [address] Oct, [facility] [address] [id number] [address] [place] [address], [place] [address] Oct, [facility] [address] [id number] [address] [place] [address], [place] [address] Sep, [facility] [address] [id number] [address] [place] [address], [place] [address] Sep, [facility] [address] [id number] [address] [place] [address], [place] [address] Sep, [facility] [address] [id number] [address] [place] [address], [place] [address] Sep, [facility] [address] [id number] [address] [place] [address], [place] [address] Sep, [facility] [address] [id number] [address] [place] [address], [place] [address] Sep, [facility] [address] [id number] [address] [place] [address], [place] [address] Sep, [facility] [address] [id number] [address] [place] [address], [place] [address] Sep, [facility] [address] [id number] [address] [place] [address], [place] [address] Sep, [facility] [address] [id number] [address] [place] [address], [place] [address] Sep, [facility] [address] [id number] [address] [place] [address], [place] [address] Sep, [facility] [address] [id number] [address] [place] [address], [place] [address] Sep, [facility] [address] [id number] [address] [place] [address], [place] [address] 30 Aug, 2013 [facility] [address] [id number] [address] [place] [address], [place] [address] 30 Aug, 2014 [facility] [address] [id number] [address] [place] [address], [place] [address] 29 Aug, 2014 [facility] [address] [id number] [address] [place] [address], [place] [address] 29 Aug, 2014 [facility] [address] [id number] [address] [place] [address], [place] [address] Aug, [facility] [address] [id number] [address] [place] [address], [place] [address] 28 Aug, 2014 [facility] [address] [id number] [address] [place] [address], [place] [address] 17 Aug, 2014 [facility] [address] [id number] [address] [place] [address], [place] [address] 17 Aug, 2013 [facility] [address] [id number] [address] [place] [address], [place] [address] 30 Jul, 2013 [facility] [address] [id number] [address] [place] [address], [place] [address] 30 Sep, 2013 [facility] [address] [id number] [address] [place] [address], [place] [address] 30 Sep, 2013 [facility] [address] [id number] [address] [place] [address], [place] [address] 30 Sep, 2013 [facility] [address] [id number] [address] [place] [address], [place] [address] 25 Sep, 2013 [facility] [address] [id number] [address] [place] [address], [place] [address] 25 Sep, 2013 [facility] [address] [id number] [address] [place] [address], [place] [address] 15 Jul, 2014 [facility] [address] [id number] [address] [place] [address] 15 Jul, 2014 [facility] [address] [id number] [address] [place] [address] Jul, [facility] [address] [id number] [address] [place] [address] Jul, [facility] [address] [id number] [address] [place] [address], [place] [address] Jun, [facility] [address] [id number] [address] [place] [address] Jun, [facility] [address] [id number] [address] [place] [address], [place] [address] Jun, [facility] [address] [id number] [address] [place] [address], [place] [address] Jun, [facility] [address] [id number] [address] [place] [address], [place] [address] Jun, [facility] [address] [id number] [address] [place] [address], [place] [address] Jun, [facility] [address] [id number] [address] [place] [address], [place] [address] Jun, [facility] [address] [id number] [address] [place] [address], [place] [address] Jun, [facility] [address] [id number] [address] [place] [address], [place] [address] Jun, [facility] [address] [id number] [address] [place] [address], [place] [address] Jun, [facility] [address] [id number] [address] [place] [address], [place] [address] Jun, [facility] [address] [id number] [address] [place] [address], [place] [address] Jun, [facility] [address] [id number] [address] [place] [address], [place] [address] Jun, [facility] [address] [id number] [address] [place] [address], [place] [address] Jun, [facility] [address] [id number] [address] [place] [address], [place] [address] Jun, [facility] [address] [id number] [address] [place] [address], [place] [address] Jun, [facility] [address] [id number] [address] [place] [address], [place] [address] Jun, [facility] [address] [id number] [address] [place] [address], [place] [address] Jun, [facility] [address] [id number] [address] [place] [address], [place] [address] Jun, [facility] [address] [id number] [address] [place] [address], [place] [address] Jun, [facility] [address] [id number] [address] [place] [address], [place] [address] Jun, [facility] [address] [id number] [address] [place] [address], [place] [address] Jun, [facility] [address] [id number] [address] [place] [address], [place] [address] May, [facility] [address] [id number] [address] [place] [address], [place] [address] May, [facility] [address] [id number] [address] [place] [address], [place] [address] May, [facility] [address] [id number] [address] [place] [address], [place] [address] May, [facility] [address] [id number] [address] [place] [address], [place] [address] May, [facility] [address] [id number] [address] [place] [address], [place] [address] May, [facility] [address] [id number] [address] [place] [address] May, 2013 [facility] [address] [id number] [address] [place] [address] May, 2013 [facility] [address] [id number] [address] [place] [address] May, 2013 [facility] [address] [id number] [address] [place] [address], [place] [address] May, 2013 [facility] [address] [id number] [address] [place] [address], [place] [address] May, 2013 [facility] [address] [id number] [address] [place] [address], [place] [address] May, [facility] [address] [id number] [address] [place] [address], [place] [address] May, [facility] [address] [id number] [address] [place] [address], [place] [address] Apr, [facility] [address] [id number] [address] [place] [address], [place] [address] Apr, [facility] [address] [id number] [address] [place] [address], [place] [address] Apr, [facility] [address] [id number] [address] [place] [address], [place] [address] Apr, [facility] [address] [id number] [address] [place] [address], [place] [address] Apr, [facility] [address] [id number] [address] [place] [address], [place] [address] Apr, [facility] [address] [id number] [address] [place] [address], [place] [address] Apr, [facility] [address] [id number] [address] [place] [address], [place] [address] Apr, [facility] [address] [id number] [address] [place] [address], [place] [address] Apr, [facility] [address] [id number] [address] [place] [address], [place] [address] March, [facility] [address] [id number] [address] [place] [address], [place] [address] March, [facility] [address] [id number] [address] [place] [address], [place] [address] March, [facility] [address] [id number] [address] [place] [address], [place] [address] March, [facility] [address] [id number] [address] [place] [address], [place] [address] March, [facility] [address] [id number] [address] [place] [address], [place] [address] March, [facility] [address] [id number] [address] [place] [address], [place] [address] March, [facility] [address] [id number] [address] [place] [address], [place] [address] March, [facility] [address] [id number] [address] [place] [address], [place] [address] March, [facility] [address] [id number] [address] [place] [address], [place] [address] March, [facility] [address] [id number] [address] [place] [address], [place] [address] March, [facility] [address] [id number] [address] [place] [address], [place] [address] March, [facility] [address] [id number] [address] [place] [address], [place] [address] March, [facility] [address] [id number] [address] [place] [address], [place] [address] March, [facility] [address] [id number] [address] [place] [address], [place] [address] March, [facility] [address] [id number] [address] [place] [address], [place] [address] March, [facility] [address] [id number] [address] [place] [address], [place] [address] March, [facility] [address] [id number] [address] [place] [address], [place] [address] March, [facility] [address] [id number] [address] [place] [address], [place] [address] March, [facility] [address] [id number] [address] [place] [address], [place] [address] March, [facility] [address] [id number] [address] [place] [address], [place] [address] Feb, [facility] [address] [id number] [address] [place] [address], [place] [address] Feb, [facility] [address] [id number] [address] [place] [address], [place] [address] Feb, [facility] [address] [id number] [address] [place] [address], [place] [address] Feb, [facility] [address] [id number] [address] [place] [address], [place] [address] Feb, [facility] [address] [id number] [address] [place] [address], [place] [address] Feb, [facility] [address] [id number] [address] [place] [address], [place] [address] Feb, [facility] [address] [id number] [address] [place] [address], [place] [address] Feb, [facility] [address] [id number] [address] [place] [address], [place] [address] Jan, [facility] [address] [id number] [address] [place] [address], [place] [address] Jan, [facility] [address] [id number] [address] [place] [address], [place] [address] Jan, [facility] [address] [id number] [address] [place] [address] 24 Jan, 2014 [facility] [address] [id number] [address] [place] [address], [place] [address] Jan, [facility] [address] [id number] [address] [place] [address] Jan, [facility] [address] [id number] [address] [place] [address], [place] [address] Jan, [facility] [address] [id number] [address] [place] [address], [place] [address] Jan, [facility] [address] [id number] [address] [place] [address], [place] [address] Jan, [facility] [address] [id number] [address] [place] [address], [place] [address] Jan, [facility] [address] [id number] [address] [place] [address], [place] [address] 27 Dec, 2013 [facility] [address] [id number] [address] [place] [address], [place] [address] 26 Dec, 2013 [facility] [address] [id number] [address] [place] [address], [place] [address] 26 Dec, 2013 [facility] [address] [id number] [address] [place] [address], [place] [address] 2013 [facility] [address] [id number] [address] [place] [address], [place] [address] 2013 [facility] [address] [id number] [address] [place] [address], [place] [address] 13 Dec, 2013 [facility] [address] [id number] [address] [place] [address], [place] [address] 12 Dec, 2013 [facility] [address] [id number] [address] [place] [address], [place] [address] 12 Dec, 2013 [facility] [address] [id number] [address] [place] [address], [place] [address] Nov, [facility] [address] [id number] [address] [place] [address], [place] [address] Nov, [facility] [address] [id number] [address] [place] [address], [place] [address] Nov, [facility] [address] [id number] [address] [place] [address], [place] [address] Nov, [facility] [address] [id number] [address] [place] [address], [place] [address] Nov, [facility] [address] [id number] [address] [place] [address], [place] [address] Nov, [facility] [address] [id number] [address] [place] [address], [place] [address] Nov, [facility] [address] [id number] [address] [place] [address], [place] [address] Nov, [facility] [address] [id number] [address] [place] [address], [place] [address] Nov, [facility] [address] [id number] [address] [place] [address], [place] [address] Nov, [facility] [address] [id number] [address] [place] [address], [place] [address] Nov, [facility] [address] [id number] [address] [place] [address], [place] [address] Nov, [facility] [address] [id number] [address] [place] [address], [place] [address] Nov, [facility] [address] [id number] [address] [place] [address], [place] [address] Oct, [facility] [address] [id number] [address] [place] [address], [place] [address] Oct, [facility] [address] [id number] [address] [place] [address], [place] [address] Oct, [facility] [address] [id number] [address] [place] [address], [place] [address] 26 Oct, 2013 [facility] [address] [id number] [address] [place] [address], [place] [address] Oct, [facility] [address] [id number] [address] [place] [address], [place] [address] Oct, [facility] [address] [id number] [address] [place] [address], [place] [address] Oct, [facility] [address] [id number] [address] [place] [address], [place] [address] 18 Oct, 2013 [facility] [address] [id number] [address] [place] [address], [place] [address] Oct, [facility] [address] [id number] [address] [place] [address], [place] [address] Oct, [facility] [address] [id number] [address] [place] [address], [place] [address] Oct, [facility] [address] [id number] [address] [place] [address], [place] [address] Oct, [facility] [address] [id number] [address] [place] [address], [place] [address] Oct, [facility] [address] [id number] [address] [place] [address], [place] [address] Oct, [facility] [address] [id number] [address] [place] [address], [place] [address] 14 Sep, 2013 [facility] [address] [id number] [address] [place] [address], [place] [address] 14 Sep, 2013 [facility] [address] [id number] [address] [place] [address], [place] [address] 05 Sep, 2013 [facility] [address] [id number] [address] [place] [address], [place] [address] 05 Sep, 2013 [facility] [address] [id number] [address] [place] [address], [place] [address] Sep, [facility] [address] [id number] [address] [place] [address], [place] [address] Sep, [facility] [address] [id number] [address] [place] [address], [place] [address] Sep, [facility] [address] [id number] [address] [place] [address], [place] [address] Sep, [facility] [address] [id number] [address] [place] [address], [place] [address] Sep, [facility] [address] [id number] [address] [place] [address], [place] [address] Sep, [facility] [address] [id number] [address] [place] [address] Aug, [facility] [address] [id number] [address] [place] [address], [place] [address] Aug, [facility] [address] [id number] [address] [place] [address] Aug, [facility] [address] [id number] [address] [place] [address] Aug, [facility] [address] [id number] [address] [place] [address] Aug, [facility] [address] [id number] [address] [place] [address] Aug, [facility] [address] [id number] [address] [place] [address] Aug, [facility] [address] [id number] [address] [place] [address] Aug, [facility] [address] [id number] [address] [place] [address] Aug, [facility] [address] [id number] [address] [place] [address] Aug, [facility] [address] [id number] [address] [place] [address], [place] [address] 18 Aug, 2012 [facility] [address] [id number] [address] [place] [address], [place] [address] 18 Aug, 2013 [facility] [address] [id number] [address] [place] [address], [place] [address] 18 Aug, 2013 [facility] [address] [id number] [address] [place] [address], [place] [address] 18 Aug, 2013 [facility] [address] [id number] [address] [place] [address], [place] [address] 17 Aug, 2013 [facility] [address] [id number] [address] [place] [address], [place] [address] 14 Aug, 2013 [facility] [address] [id number] [address] [place] [address], [place] [address] 14 Aug, 2013 [facility] [address] [id number] [address] [place] [address], [place] [address] 01 Aug, 2013 [facility] [address] [id number] [address] [place] [address], [place] [address] 20 Jul, 2012 [facility] [address] [id number] [address] [place] [address], [place] [address] 19 Jul, 2012 [facility] [address] [id number] [address] [place] [address], [place] [address] 18 Jul, 2013 [facility] [address] [id number] [address] [place] [address], [place] [address] 11 Jul, 2013 [facility] [address] [id number] [address] [place] [address], [place] [address] 11 Jul, 2013 [facility] [address] [id number] [address] [place] [address], [place] [address] Jun, [facility] [address] [id number] [address] [place] [address], [place] [address] Jun, [facility] [address] [id number] [address] [place] [address], [place] [address] Jun, [facility] [address] [id number] [address] [place] [address] Jun, [facility] [address] [id number] [address] [place] [address] Jun, [facility] [address] [id number] [address] [place] [address] Jun, [facility] [address] [id number] [address] [place] [address], [place] [address] Jun, [facility] [address] [id number] [address] [place] [address], [place] [address] Jun, [facility] [address] [id number] [address] [place] [address], [place] [address] Jun, [facility] [address] [id number] [address] [place] [address], [place] [address] Jun, [facility] [address] [id number] [address] [place] [address], [place] [address] May, [facility] [address] [id number] [address] [place] [address], [place] [address] May, [facility] [address] [id number] [address] [place] [address], [place] [address] May, [facility] [address] [id number] [address] [place] [address], [place] [address] May, [facility] [address] [id number] [address] [place] [address], [place] [address] May, [facility] [address] [id number] [address] [place] [address], [place] [address] 16 May, 2013 [facility] [address] [id number] [address] [place] [address], [place] [address] May, [facility] [address] [id number] [address] [place] [address], [place] [address] May, [facility] [address] [id number] [address] [place] [address], [place] [address] May, [facility] [address] [id number] [address] [place] [address], [place] [address] Apr, [facility] [address] [id number] [address] [place] [address], [place] [address] Apr, [facility] [address] [id number] [address] [place] [address], [place] [address] Apr, [facility] [address] [id number] [address] [place] [address], [place] [address] Apr, [facility] [address] [id number] [address] [place] [address], [place] [address] Apr, [facility] [address] [id number] [address] [place] [address], [place] [address] Apr, [facility] [address] [id number] [address] [place] [address], [place] [address] Apr, [facility] [address] [id number] [address] [place] [address], [place] [address] March, [facility] [address] [id number] [address] [place] [address], [place] [address] Feb, [facility] [address] [id number] [address] [place] [address], [place] [address] Feb, [facility] [address] [id number] [address] [place] [address], [place] [address] Feb, [facility] [address] [id number] [address] [place] [address], [place] [address] 28 Jan, 2013 [facility] [address] [id number] [address] [place] [address], [place] [address] 21 Jan, 2013 [facility] [address] [id number] [address] [place] [address], [place] [address] 19 Jan, 2013 [facility] [address] [id number] [address] [place] [address], [place] [address] 14 Jan, 2013 [facility] [address] [id number] [address] [place] [address], [place] [address] 12 Jan, 2013 [facility] [address] [id number] [address] [place] [address], [place] [address] 08 Jan, 2013 [facility] [address] [id number] [address] [place] [address], [place] [address] 07 Jan, 2013 [facility] [address] [id number] [address] [place] [address], [place] [address] 04 Jan, 2013 [facility] [address] [id number] [address] [place] [address], [place] [address] 28 Dec, 2012 [facility] [address] [id number] [address] [place] [address], [place] [address] 25 Dec, 2012 [facility] [address] [id number] [address] [place] [address], [place] [address] 13 Dec, 2012 [facility] [address] [id number] [address] [place] [address], [place] [address] 11 Dec, 2012 [facility] [address] [id number] [address] [place] [address], [place] [address] 07 Dec, 2012 [facility] [address] [id number] [address] [place] [address], [place] [address] 06 Dec, 2012 [facility] [address] [id number] [address] [place] [address], [place] [address] 05 Dec, 2012 [facility] [address] [id number] [address] [place] [address], [place] [address] 31 Nov, 2012 [facility] [address] [id number] [address] [place] [address], [place] [address] 24 Nov, 2012 [facility] [address] [id number] [address] [place] [address], [place] [address] 18 Nov, 2012 [facility] [address] [id number] [address] [place] [address], [place] [address] 15 Nov, 2012 [facility] [address] [id number] [address] [place] [address], [place] [address] Nov, [facility] [address] [id number] [address] [place] [address], [place] [address] Nov, [facility] [address] [id number] [address] [place] [address], [place] [address] Nov, [facility] [address] [id number] [address] [place] [address], [place] [address] Oct, [facility] [address] [id number] [address] [place] [address], [place] [address] Oct, [facility] [address] [id number] [address] [place] [address], [place] [address] Oct, [facility] [address] [id number] [address] [place] [address], [place] [address] Oct, [facility] [address] [id number] [address] [place] [address], [place] [address] Oct, [facility] [address] [id number] [address] [place] [address], [place] [address] Oct, [facility] [address] [id number] [address] [place] [address], [place] [address] Oct, [facility] [address] [id number] [address] [place] [address], [place] [address] Oct, [facility] [address] [id number] [address] [place] [address], [place] [address] 05 Oct, 2012 [facility] [address] [id number] [address] [place] [address], [place] [address] 05 Oct, 2012 [facility] [address] [id number] [address] [place] [address], [place] [address] Oct, [facility] [address] [id number] [address] [place] [address], [place] [address] Oct, [facility] [address] [id number] [address] [place] [address], [place] [address] Sep, [facility] [address] [id number] [address] [place] [address], [place] [address] Sep, [facility] [address] [id number] [address] [place] [address], [place] [address] Sep, [facility] [address] [id number] [address] [place] [address], [place] [address] Sep, [facility] [address] [id number] [address] [place] [address], [place] [address] Sep, [facility] [address] [id number] [address] [place] [address], [place] [address] Sep, [facility] [address] [id number] [address] [place] [address], [place] [address] Sep, [facility] [address] [id number] [address] [place] [address], [place] [address] Sep, [facility] [address] [id number] [address] [place] [address], [place] [address] Sep, [facility] [address] [id number] [address] [place] [address], [place] [address] Sep, [facility] [address] [id number] [address] [place] [address], [place] [address] Sep, [facility] [address] [id number] [address] [place] [address], [place] [address] Aug, [facility] [address] [id number] [address] [place] [address], [place] [address] Aug, [facility] [address] [id number] [address] [place] [address], [place] [address] Aug, [facility] [address] [id number] [address] [place] [address], [place] [address] Aug, [facility] [address] [id number] [address] [place] [address], [place] [address] Aug, [facility] [address] [id number] [address] [place] [address], [place] [address] Aug, [facility] [address] [id number] [address] [place] [address], [place] [address] Aug, [facility] [address] [id number] [address] [place] [address], [place] [address] Aug, [facility] [address] [id number] [address] [place] [address], [place] [address] Aug, [facility] [address] [id number] [address] [place] [address], [place] [address] Aug, [facility] [address] [id number] [address] [place] [address], [place] [address] 22 Jul, 2012 [facility] [address] [id number] [address] [place] [address], [place] [address] 20 Jul, 2012 [facility] [address] [id number] [address] [place] [address], [place] [address] Jul, [facility] [address] [id number] [address] [place] [address], [place] [address] Jul, [facility] [address] [id number] [address] [place] [address], [place] [address] Jun, [facility] [address] [id number] [address] [place] [address], [place] [address] Jun, [facility] [address] [id number] [address] [place] [address], [place] [address] 16 Jun, 2012 [facility] [address] [id number] [address] [place] [address], [place] [address] Jun, [facility] [address] [id number] [address] [place] [address], [place] [address] Jun, [facility] [address] [id number] [address] [place] [address], [place] [address] Jun, [facility] [address] [id number] [address] [place] [address], [place] [address] Jun, [facility] [address] [id number] [address] [place] [address], [place] [address] May, [facility] [address] [id number] [address] [place] [address], [place] [address] May, [facility] [address] [id number] [address] [place] [address], [place] [address] May, [facility] [address] [id number] [address] [place] [address], [place] [address] May, [facility] [address] [id number] [address] [place] [address], [place] [address] May, [facility] [address] [id number] [address] [place] [address], [place] [address] Apr, [facility] [address] [id number] [address] [place] [address], [place] [address] Apr, [facility] [address] [id number] [address] [place] [address], [place] [address] Apr, [facility] [address] [id number] [address] [place] [address], [place] [address] Apr, [facility] [address] [id number] [address] [place] [address], [place] [address] Apr, [facility] [address] [id number] [address] [place] [address], [place] [address] March, [facility] [address] [id number] [address] [place] [address], [place] [address] March, [facility] [address] [id number] [address] [place] [address], [place] [address] March, [facility] [address] [id number] [address] [place] [address], [place] [address] March, [facility] [address] [id number] [address] [place] [address], [place] [address] March, [facility] [address] [id number] [address] [place] [address], [place] [address] March, [facility] [address] [id number] [address] [place] [address], [place] [address] March, [facility] [address] [id number] [address] [place] [address], [place] [address] March, [facility] [address] [id number] [address] [place] [address], [place] [address] March, [facility] [address] [id number] [address] [place] [address], [place] [address] March, [facility] [address] [id number] [address] [place] [address], [place] [address] 30 Feb, 2012 [facility] [address] [id number] [address] [place] [address], [place] [address] Feb, [facility] [address] [id number] [address] [place] [address], [place] [address] Feb, [facility] [address] [id number] [address] [place] [address], [place] [address] Feb, [facility] [address] [id number] [address] [place] [address], [place] [address] Feb, [facility] [address] [id number] [address] [place] [address], [place] [address] Feb, [facility] [address] [id number] [address] [place] [address], [place] [address] Feb, [facility] [address] [id number] [address] [place] [address], [place] [address] Feb, [facility] [address] [id number] [address] [place] [address], [place] [address] Feb, [facility] [address] [id number] [address] [place] [address], [place] [address] 08 Jan, 2012 [facility] [address] [id number] [address] [place] [address], [place] [address] Jan, [facility] [address] [id number] [address] [place] [address], [place] [address] Jan, [facility] [address] [id number] [address] [place] [address], [place] [address] Jan, [facility] [address] [id number] [address] [place] [address], [place] [address] Dec, [facility] [address] [id number] [address] [place] [address], [place] [address] Dec, [facility] [address] [id number] [address] [place] [address], [place] [address] Nov, [facility] [address] [id number] [address] [place] [address], [place] [address] Nov, [facility] [address] [id number] [address] [place] [address], [place] [address] Nov, [facility] [address] [id number] [address] [place] [address], [place] [address] Nov, [facility] [address] [id number] [address] [place] [address], [place] [address] Nov, [facility] [address] [id number] [address] [place] [address], [place] [address] Oct, [facility] [address] [id number] [address] [place] [address], [place] [address] Oct, [facility] [address] [id number] [address] [place] [address], [place] [address] Oct, [facility] [address] [id number] [address] [place] [address], [place] [address] Oct, [facility] [address] [id number] [address] [place] [address], [place] [address] Oct, [facility] [address] [id number] [address] [place] [address], [place] [address] Oct, [facility] [address] [id number] [address] [place] [address], [place] [address] Oct, [facility] [address] [id number] [address] [address] Oct, [facility] [address] [facility] [id number] [address] [address] Sep, IMMUNIZATIONS No Known Immunizations SOCIAL HISTORY Never Assessed REASON FOR VISIT [facility] [place] PLAN OF CARE VITAL SIGNS MEDICATIONS Medication Instructions Dosage Frequency Start Date End Date Duration S tatus Doxycycline Hyclate 100 mg 1 tablet by O ral route 2 times per day for 7 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 Sep, Active Wellbutrin XL 300 mg 1 tablet by Oral route 1 time per day Oct, Active Levaquin 500 mg 1 tablet by Oral route every 24 hours for 10 days Nov, Active Baclofen 10 mg take 1 tablet (10 mg ) by oral route 3 times per day PRN muscle spasm Jul, Active Albuterol Sulfate 2.5 mg /3 mL (0.083 %) inhale 3 milliliters by NEBULIZATION route as needed every 4 hours PRN for wheezing or cough Oct, 13 Active morphine 15 mg take 1 tablet (15 mg) by oral route miky ry 12 hours Jan, Active Percocet 7.5-325 mg take 1 tablet by Ora l route 3 times per day as needed for pain PRN must last 30 days Jan, Active Crestor 20 mg take 1 tablet by Ora l route 1 time per day Lipids due annually in Aug, Active Lamictal 25 mg 1 tablet by Oral rou te 1 time per day for 14 day(s)then take 1 tab po bid after than. Stop Lamictal and call Dr. Chun if rash develops Nov, Active Celexa 40 mg 1 tablet by Oral route 1 time per day 2013 Active Xanax XR 2 mg 1 Tablet by Oral route 1 time per day 27 J 2014 Active Latuda 20 mg 1 tablet by Oral route 1 time pe day for 30 days w/evening meal May, Active PredniSONE 20 mg 3 tablet by Oral route 1 time per day for 5 day(s) Feb, Active Levaquin 750 mg 1 tablet by Oral route every 24 hours for 10 days Jun, Active Promethazine-Codeine 6.25-10 mg/5 mL 5 m L by Oral route every 4 hours for 5 day(s) PRN cough Jun, Active Neurontin 400 mg 1 capsule by Oral route 3 times per d ay for pain Nov, Active Omnicef 300 mg 2 capsule by Oral route 1 time per day for 7 day(s) Feb, Active Symbicort 160-4.5 mcg/actuation inhale 2 puffs by inhalation route 2 times per day in the morning and evening Nov, Active Metoprolol Tartrate 100 mg 1 Tablet by Oral route 2 daily Dec, Active Fish Oil Concentrate 1000 mg 1 Capsule 3 times per day 1 Feb, Active RESULTS No Results PROCEDURES No Known procedures INSTRUCTIONS MEDICATIONS ADMINISTERED No Known Medications MEDICAL (GENERAL) HISTORY Type Description Date Medical History aortic abdominal aneurysm moderate 04/06 18 Medical History illiac aneurysm 03/2018 Surgical History No Surgical history information Hospitalization History [facility]- Urosepsis, ab d pain and fever, discharged 11/27/2017 11/26/2017 Hospitalization History [facility]- Went Unrepsonsive, Hit head 2017 Hospitalization History [facility]- Back Pain 05/05/ 8
[2020-06-18] MEDS ORDERED: morphine INJ 4 MG/ML 1 ML (VIAL/SYRINGE) IVP PRN (15:30)
--- OUTSIDE RECORDS SUMMARY | 2020-06-18 15:33 | XMS REPORT ---
Author Author Sanjuanita Sanchez [facility] Address [address] [place] [address] Care Team Providers Care Back Up Scan Coordinator Name Role Phone MARIA DE JESUS Sanchez Unavailable PROBLEMS Type Condition ICD9-CM Code UOS97-VW Code Onset Dates Condition S tatus SNOMED Code Problem Hypertension I10 Active 4272019 3 Problem Hyperlipidemia E78.5 Active 84992 004 Problem Coronary artery disease I25.10 Active 58065418 Problem Low back pain M54.5 Active 349397 009 Problem Other chronic pain G89.29 Active 8 0767804 Problem Ventral hernia without obstruction or gangrene K43 .9 Active 860652890 Problem Type 2 diabetes mellitus wit hout complication, without long-term current use of insulin E11.9 Active 920192827 Problem Anxiety F41.9 Active 58637219 Problem Peripheral vascular disease I73.9 Ac tive 697893985 Problem Insomnia G47.00 Active 152647756 Problem Microcytic anemia D50.9 Active 23 9630075 Problem Pharyngeal dysphagia R13.13 Active 07279441755403 Problem Other iron deficiency anemia D50.8 A ctive 99217826 Problem Reactive depression F32.9 Active 42820236 Problem Paroxysmal atrial fibrillation I48.0 Active 274064335 Problem Postmenopausal atrophic vaginitis N95.2 Active 52850639 Problem Encounter for suprapubic catheter care Z43.5 Active 827199378 Problem Neurogenic bladder N31.9 Active 3 [id number] ALLERGIES No Information ENCOUNTERS Encounter Location Date Diagnosis [facility] [address] [facility] [id number] [address] [place] [address] May, [facility] [address] [facility] [id number] [address] [place] [address] May, Strain of right shoulder, scherer bsequent encounter S46.911D and Anxiety F41.9 [facility] [address] [id number] [address] [place] [address] 17 Apr, 2020 Anxiety F41.9 and Strain of right shoulder, subsequent encounter S46.911D [facility] [address] [id number] [address] [place] [address] 04 Apr, 2020 [facility] [address] [id number] [address] [place] [address] March, [facility] [address] [id number] [address] [place] [address] March, Anxiety F41.9 and Strain of right shoulder, subsequent encounter S46.911D [facility] [address] [id number] [address] [place], [place] [address] Feb, Anxiety F41.9 and Strain of right shoulder, subsequent encounter S46.911D [facility] [address] [id number] [address] [place] [address] Jan, Anxiety F41.9 and Strain of right shoulder, subsequent encounter S46.911D [facility] [address] [id number] [address] [place] [address] Jan, Via [facility] [place] [address] [place] [id number] Jan, Neurogenic bladder N31.9 [facility] [address] [id number] [address] [place] [address] Dec, [facility] [address] [id number] [address] [place] [address] Dec, [facility] [address] [id number] [address] [place] [address] 24 Dec, 2019 Anxiety F41.9 and Strain of right shoulder, subsequent encounter S46.911D [facility] [address] [id number] [address] [place] [address] 10 Dec, 2019 Other iron deficiency anemia D50.8 [facility] [address] [id number] [address] [place] [address] Dec, Via [facility] [place] [employer] [address] [place] [id number] Dec, Encounter for suprapubic catheter care Z 43.5 and Microcytic anemia D50.9 [place] [address] [id number] [address] [place] [address] Dec, [place] [facility] [address] [id number] [address] [place] [address] Nov, Anxiety F41.9 and Strain of right shoulder, subsequent encounter S46.911D [facility] [facility] [address] [id number] [address] [place] [address] Nov, Hypertension I10 Via [facility] [place] [employer] [address] [place] [id number] Nov, Pneumonia of both lungs due to infectiou s organism, unspecified part of lung J18.9 and Suprapubic catheter Z93.59 [facility] [facility] [address] [id number] [address] [place] [address] Nov, Hypertension I10 and Reactiv e depression F32.9 [facility] [facility] [address] [id number] [address] [place] [address] Oct, Strain of right shoulder, scherer bsequent encounter S46.911D and Anxiety F41.9 [facility] [facility] [address] [id number] [address] [place] [address] Oct, Via [facility] [employer] [address] [place] [id number] Oct, Suprapubic catheter Z93.59 and Candidias is, intertriginous B37.2 [place] [address] [id number] [address] [place] [address] Oct, Suprapubic catheter Z93.59 [place] [address] [id number] [address] [place] [address] Oct, Anxiety F41.9 and Strain of right shoulder, subsequent encounter S46.911D [facility] [address] [id number] [address] [place] [address] Sep, [facility] [address] [id number] [address] [place] [address] Sep, [facility] [address] [id number] [address] [place] [address] Sep, Via [facility] [address] [place] [id number] Sep, Suprapubic catheter Z93.59 [facility] [address] [id number] [address] [place] [address] Sep, Anxiety F41.9 and Strain of right shoulder, subsequent encounter S46.911D [facility] [address] [id number] [address] [place] [address] Aug, [facility] [address] [id number] [address] [place] [address] Aug, [facility] [address] [id number] [address] [place] [address] Aug, Anxiety F41.9 and Strain of right shoulder, subsequent encounter S46.911D Via [facility] [address] [place] [id number] Aug, Suprapubic catheter Z93.59 [facility] [address] [id number] [address] [place] [address] Jul, Strain of right shoulder, scherer bsequent encounter S46.911D and Anxiety F41.9 [facility] [address] [id number] [address] [place] [address] Jul, Anxiety F41.9 [facility] [address] [id number] [address] [place] [address] Jun, [facility] [address] [id number] [address] [place] [address] Jun, [facility] [address] [id number] [address] [place] [address] Jun, [place] [facility] [address] [id number] [address] [place] [address] Jun, Strain of right shoulder, scherer bsequent encounter S46.911D [facility] [facility] [address] [id number] [address] [place] [address] Jun, Strain of right shoulder, scherer bsequent encounter S46.911D [facility] [facility] [address] [id number] [address] [place] [address] Jun, Anxiety F41.9 Via [facility] [employer] [address] [place] [id number] Jun, Neurogenic bladder N31.9 and Anxiety F41 .9 Via [facility] [place] [employer] [address] [place] [id number] May, Anxiety F41.9 [place] [address] [id number] [address] [place] [address] May, Dysuria R30.0 [place] [address] [id number] [address] [place] [address] May, Strain of right shoulder, scherer bsequent encounter S46.911D and Anxiety F41.9 [place] [address] [id number] [address] [place] [address] Apr, Via [facility] [employer] [address] [place] [id number] Apr, Strain of right shoulder, subsequent enc ounter S46.911D [place] [address] [id number] [address] [place] [address] Apr, Strain of right shoulder, scherer bsequent encounter S46.911D and Anxiety F41.9 Via [facility] [employer] [address] [place] [id number] Apr, Type 2 diabetes mellitus without complic ation, without long-term current use of insulin E11.9 and Neurogenic bladder N31.9 Via [employer] [address] [place] [id number] Apr, Strain of right shoulder, subsequent enc ounter S46.911D ; History of GI bleed Z87.19 ; Neurogenic bladder N31.9 and Reactive depression F32.9 [facility] [address] [id number] [address] [place] [address] 10 Apr, 2019 Acute pain of left shoulder M25.512 [facility] [address] [id number] [address] [place] [address] Apr, [facility] [address] [id number] [address] [place] [address] Apr, Anxiety F41.9 and 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 Via [employer] [address] [place] [id number] March, Gastrointestinal hemorrhage associated w ith acute gastritis K29.01 [facility] [address] [id number] [address] [place] [address] March, Via [employer] [address] [place] [id number] March, Bronchitis J40 [facility] [address] [id number] [address] [place] [address] March, Cough R05 [facility] [address] [id number] [address] [place] [address] March, Other chronic pain G89.29 [facility] [address] [id number] [address] [place] [address] March, Anxiety F41.9 [facility] [address] [id number] [address] [place] [address] March, [facility] [address] [id number] [address] [place] [address] Feb, Other chronic pain G89.29 [facility] [address] [id number] [address] [place] [address] Feb, Anxiety F41.9 [facility] [address] [id number] [address] [place] [address] Feb, Other chronic pain G89.29 Via [facility] [employer] [address] [place] [id number] Feb, Neurogenic bladder N31.9 and Suprapubic catheter Z93.59 [facility] [address] [id number] [address] [place] [address] Jan, Anxiety F41.9 [facility] [address] [id number] [address] [place] [address] Dec, Anxiety F41.9 [facility] [address] [id number] [address] [place] [address] Dec, Other chronic pain G89.29 an d Anxiety F41.9 [facility] [address] [id number] [address] [place] [address] Dec, Via [employer] [address] [place] [id number] Dec, Neurogenic bladder N31.9 and Suprapubic catheter Z93.59 [facility] [address] [id number] [address] [place] [address] Nov, Other chronic pain G89.29 an d Anxiety F41.9 [facility] [address] [id number] [address] [place] [address] Nov, Via [employer] [address] [place] [id number] Nov, Suprapubic catheter Z93.59 [facility] [address] [id number] [address] [place] [address] Oct, Other chronic pain G89.29 an d Anxiety F41.9 [facility] [address] [id number] [address] [place] [address] Oct, [facility] [address] [id number] [address] [place] [address] Oct, Suprapubic catheter Z93.59 [facility] [address] [id number] [address] [place] [address] Oct, Via [employer] [address] [place] [id number] Oct, [facility] [address] [id number] [address] [place] [address] Oct, Anxiety F41.9 [facility] [address] [id number] [address] [place] [address] Oct, Anxiety F41.9 Via [employer] [address] [place] [id number] Oct, Other chronic pain G89.29 [facility] [address] [id number] [address] [place] [address] Sep, Other chronic pain G89.29 Via [employer] [address] [place] [id number] Sep, Suprapubic catheter Z93.59 and Cervicalg ia M54.2 [facility] [address] [id number] [address] [place] [address] Sep, [facility] [address] [id number] [address] [place] [address] Sep, [facility] [address] [id number] [address] [place] [address] Sep, Via [employer] [address] [place] [id number] Aug, Cystitis N30.90 [facility] [address] [id number] [address] [place] [address] Aug, [facility] [address] [id number] [address] [place] [address] Aug, Other chronic pain G89.29 [facility] [address] [id number] [address] [place] [address] Aug, Via [employer] [address] [place] [id number] Aug, Encounter for suprapubic catheter care Z 43.5 [facility] [address] [id number] [address] [place] [address] Jul, Via [employer] [address] [place] [id number] Jul, [facility] [address] [id number] [address] [place] [address] Jul, Other chronic pain G89.29 [facility] [address] [id number] [address] [place] [address] Jul, [facility] [address] [id number] [address] [place] [address] Jul, Via [employer] [address] [place] [id number] Jun, Postmenopausal atrophic vaginitis N95.2 [facility] [address] [id number] [address] [place] [address] Jun, Other chronic pain G89.29 [facility] [address] [id number] [address] [place] [address] Jun, Via [employer] [address] [place] [id number] May, Anxiety F41.9 ; Type 2 diabetes mellitus without complication, without long-term current use of insulin E11.9 ; Hypertension I10 ; Low back pain M54.5 ; Paroxysmal atrial fibrillation I48.0 and 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 [facility] [address] [id number] [address] [place] [address] May, Other chronic pain G89.29 Via [employer] [address] [place] [id number] May, Low back pain M54.5 [facility] [address] [id number] [address] [place] [address] May, [facility] [address] [id number] [address] [place] [address] Apr, Other chronic pain G89.29 [facility] [address] [id number] [address] [place] [address] Apr, [facility] [address] [id number] [address] [place] [address] Apr, Via [employer] [address] [place] [id number] Apr, Closed compression fracture of L3 lumbar vertebra with routine healing, subsequent encounter S32.030D Via [employer] [address] [place] [id number] Apr, Low back pain M54.5 Via [employer] [address] [place] [id number] Apr, Coccydynia M53.3 [facility] [address] [id number] [address] [place] [address] March, [facility] [address] [id number] [address] [place] [address] March, Other chronic pain G89.29 [facility] [address] [id number] [address] [place] [address] March, [facility] [address] [id number] [address] [place] [address] March, [facility] [address] [id number] [address] [place] [address] Feb, [facility] [address] [id number] [address] [place] [address] Feb, Other chronic pain G89.29 Via [employer] [address] [place] [id number] Feb, Other chronic pain G89.29 and Anxiety F4 1.9 [facility] [address] [id number] [address] [place] [address] Feb, [facility] [address] [id number] [address] [place] [address] Jan, [facility] [address] [facility] [id number] [address] [place] [address] Jan, [facility] [address] [facility] [id number] [address] [place] [address] Jan, [facility] [address] [facility] [id number] [address] [place] [address] Jan, [facility] [address] [facility] [id number] [address] [place] [address] Dec, Via [employer] [address] [place] [id number] Dec, Peripheral vascular disease I73.9 ; 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 ; Other chronic pain G89.29 ; Anxiety F41.9 ; Reactive depression F32.9 ; Insomnia G47.00 and Type 2 diabetes mellitus without complication, without long-term current use of insulin E11.[address] [id number] [address] Nov, [facility] [address] [id number] [place] [id number] Nov, Anxiety F41.9 [facility] [address] [facility] [id number] [address] [place] [address] Nov, [facility] [address] [id number] [place] [id number] Nov, Anxiety F41.9 Via [employer] [address] [place] [id number] Nov, Status post surgery Z98.890 ; Confused R 41.0 ; Anxiety F41.9 and Other chronic pain G89.29 [facility] [address] [id number] [place] [id number] Nov, Other chronic pain G89.29 [facility] [address] [facility] [id number] [address] [place] [address] Oct, [facility] [address] [id number] [place] [id number] Oct, Other chronic pain G89.29 [facility] [address] [id number] [address] [place] [address], [place] [address] Oct, Anxiety F41.9 [facility] [address] [id number] [place] [id number] Sep, Other chronic pain G89.29 [facility] [address] [id number] [place] [id number] Sep, Via [employer] [address] [place] [id number] Aug, Dysuria R30.0 and Anxiety F41.9 [facility] [address] [id number] [address] [place] [address], [place] [address] Aug, [facility] [address] [id number] [place] [id number] Aug, Other chronic pain G89.29 [facility] [address] [id number] [address] [place] [address], [place] [address] Jul, Other chronic pain G89.29 [facility] [address] [id number] [place] [id number] Jun, [facility] [address] [id number] [place] [id number] Jun, Other chronic pain G89.29 [facility] [address] [id number] [address] [place] [address], [place] [address] Jun, [facility] [address] [id number] [address] [place] [address] May, Other chronic pain G89.29 [facility] [address] [id number] [address] [place] [address], [place] [address] Apr, Other chronic pain G89.29 [facility] [employer] [address] [place] [id number] Apr, Reactive depression F32.9 and Pharyngeal dysphagia R13.13 [facility] [address] [facility] [id number] [address] [place] [address] Apr, Urinary tract infection with out hematuria, site unspecified N39.0 [facility] [address] [facility] [id number] [address] [place] [address] March, Other chronic pain G89.29 [facility] [address] [id number] [address] [place] [address] Feb, Other chronic pain G89.29 [facility] [address] [facility] [id number] [address] [place] [address] Feb, [facility] [address] [place] [id number] [place] [id number] Feb, Via [facility] [employer] [address] [place] [id number] Feb, Dysuria R30.0 and Ventral hernia without obstruction or gangrene K43.9 [facility] [address] [facility] [id number] [address] [place] [address] Jan, Other chronic pain G89.29 [facility] [address] [place] [id number] [place] [id number] Dec, Other chronic pain G89.29 [facility] [address] [facility] [id number] [address] [place] [address] Nov, Other chronic pain G89.29 Via [employer] [address] [place] [id number] Nov, Lymphadenitis I88.9 [facility] [address] [facility] [id number] [address] [place] [address] Nov, Other chronic pain G89.29 [facility] [address] [id number] [address] [place] [address] Nov, [facility] [address] [id number] [place] [id number] Nov, Other chronic pain G89.29 Via [facility] [employer] [address] [place] [id number] Oct, Low back pain M54.5 ; Hypertension I10 a nd Type 2 diabetes mellitus without complication, without long-term current use of insulin E11.9 [facility] [address] [id number] [address] [place] [address] Oct, [facility] [address] [id number] [address] [place] [address] Oct, [facility] [address] [id number] [address] [place] [address] Oct, [facility] [address] [id number] [address] [place] [address] Oct, [facility] [address] [id number] [address] [place] [address] Sep, [facility] [address] [id number] [address] [place] [phone] Sep, [facility] [address] [id number] [address] [place] [id number] Aug, Other chronic pain G89.29 [facility] [address] [id number] [address] [place] [phone] Jul, [facility] [address] [id number] [address] [place] [id number] Jul, [facility] [address] [id number] [address] [place] [phone] Jul, [facility] [address] [id number] [address] [place] [phone] Jun, [facility] [address] [id number] [address] [place] [phone] Jun, [facility] [employer] [address] [place] [id number] Jun, Low back pain M54.5 ; Other chronic pain G89.29 and Coronary artery disease I25.10 [facility] [address] [id number] [address] [place] [phone] [id number] Jun, 2016 [facility] [address] [id number] [address] [place] [phone] May, [facility] [address] [id number] [address] [place] [address] 15 May, 2016 [facility] [address] [id number] [address] [place] [address] May, Other chronic pain G89.29 [facility] [address] [id number] [address] [place] [address] May, [facility] [address] [id number] [address] [place] [address] Apr, [facility] [address] [id number] [address] [place] [address] 17 Apr, 2016 Acute cystitis without hemat uria N30.00 [facility] [address] [id number] [address] [place] [address] 16 Apr, 2016 Acute cystitis without hemat uria N30.00 ; Coronary artery disease I25.10 ; Low back pain M54.5 and Other chronic pain G89.29 [facility] [address] [id number] [address] [place] [address] Apr, Other chronic pain G89.29 [facility] [address] [id number] [address] [place] [address] March, Other chronic pain G89.29 [facility] [address] [id number] [address] [place] [address] 18 Feb, 2016 [facility] [address] [id number] [address] [place] [address] 15 Feb, 2016 Arthritis M19.90 [facility] [address] [id number] [address] [place] [address] Feb, [facility] [address] [id number] [address] [place] [address] Jan, [facility] [address] [id number] [address] [place] [address] Jan, [facility] [address] [id number] [address] [place] [address] Jan, Other chronic pain G89.29 [facility] [address] [id number] [address] [place] [address] Jan, Hypertension I10 ; Coronary artery disease I25.10 and Insomnia G47.00 [facility] [address] [id number] [address] [place] [address] Jan, [facility] [address] [id number] [address] [place] [address] Dec, Right hip pain M25.551 [facility] [address] [id number] [address] [place] [address] Dec, [facility] [address] [id number] [address] [place] [address] Dec, [facility] [address] [id number] [address] [place] [address] Dec, [facility] [address] [id number] [address] [place] [address] Dec, Other chronic pain G89.29 [facility] [address] [id number] [address] [place] [address] Dec, [facility] [address] [id number] [address] [place] [address] Nov, [facility] [address] [id number] [address] [place] [address] Nov, Other chronic pain G89.29 [facility] [address] [id number] [address] [place] [address] Nov, Right hip pain M25.551 and C oronary artery disease I25.10 [facility] [address] [id number] [address] [place] [address] Nov, Other chronic pain G89.29 [facility] [address] [id number] [address] [place] [address] Oct, [facility] [address] [id number] [address] [place] [address] Oct, [facility] [address] [id number] [address] [place] [address] Sep, [facility] [address] [id number] [address] [place] [address] Sep, [facility] [address] [id number] [address] [place] [address] Aug, [facility] [address] [id number] [address] [place] [address] Aug, Hypertension I10 ; Coronary artery disease I25.10 and Arthritis M19.90 [facility] [address] [id number] [address] [place] [address] Jun, [facility] [address] [id number] [address] [place] [address] Jun, Essential hypertension, jayson gn 401.1 ; Other chronic pain 338.29 and Chronic airway obstruction, not elsewhere classified 496 [facility] [address] [id number] [address] [place] [address] Jun, [facility] [address] [id number] [address] [place] [address] Jun, [facility] [address] [id number] [address] [place] [address] Jun, [facility] [address] [id number] [address] [place] [address] May, [facility] [address] [id number] [address] [place] [address] [place] [address] May, [facility] [address] [id number] [address] [place] [address], [place] [address] Apr, [facility] [address] [id number] [address] [place] [address], [place] [address] Apr, [facility] [address] [id number] [address] [place] [address], [place] [address] Apr, [facility] [address] [id number] [address] [place] [address], [place] [address] March, [facility] [address] [id number] [address] [place] [address], [place] [address] March, [facility] [address] [id number] [address] [place] [address], [place] [address] March, [facility] [address] [id number] [address] [place] [address], [place] [address] March, [facility] [address] [id number] [address] [place] [address], [place] [address] March, Sialadenitis 527.2 [facility] [address] [id number] [address] [place] [address], [place] [address] Feb, [facility] [address] [id number] [address] [place] [address], [place] [address] Feb, [facility] [address] [id number] [address] [place] [address], [place] [address] Feb, [facility] [address] [id number] [address] [place] [address], [place] [address] Feb, [facility] [address] [id number] [address] [place] [address], [place] [address] Feb, [facility] [address] [id number] [address] [place] [address], [place] [address] Jan, [facility] [address] [id number] [address] [place] [address], [place] [address] Jan, [facility] [address] [id number] [address] [place] [address], [place] [address] Jan, [facility] [address] [id number] [address] [place] [address], [place] [address] Jan, [facility] [address] [id number] [address] [place] [address], [place] [address] Jan, [facility] [address] [id number] [address] [place] [address], [place] [address] Jan, [facility] [address] [id number] [address] [place] [address], [place] [address] Dec, [facility] [address] [id number] [address] [place] [address], [place] [address] Dec, 2014 [facility] [address] [id number] [address] [place] [address], [place] [address] Dec, [facility] [address] [id number] [address] [place] [address], [place] [address] Dec, 2014 [facility] [address] [id number] [address] [place] [address], [place] [address] Dec, [facility] [address] [id number] [address] [place] [address], [place] [address] Dec, [facility] [address] [id number] [address] [place] [address], [place] [address] Nov, [facility] [address] [id number] [address] [place] [address], [place] [address] Nov, [facility] [address] [id number] [address] [place] [address], [place] [address] Nov, [facility] [address] [id number] [address] [place] [address], [place] [address] Nov, [facility] [address] [id number] [address] [place] [address], [place] [address] Nov, [facility] [address] [id number] [address] [place] [address], [place] [address] Nov, [facility] [address] [id number] [address] [place] [address], [place] [address] Nov, [facility] [address] [id number] [address] [place] [address], [place] [address] Nov, [facility] [address] [id number] [address] [place] [address], [place] [address] Nov, [facility] [address] [id number] [address] [place] [address], [place] [address] Nov, [facility] [address] [id number] [address] [place] [address], [place] [address] Nov, [facility] [address] [id number] [address] [place] [address], [place] [address] Nov, [facility] [address] [id number] [address] [place] [address], [place] [address] Nov, [facility] [address] [id number] [address] [place] [address], [place] [address] Nov, [facility] [address] [id number] [address] [place] [address], [place] [address] Oct, [facility] [address] [id number] [address] [place] [address], [place] [address] Oct, [facility] [address] [id number] [address] [place] [address], [place] [address] Oct, [facility] [address] [id number] [address] [place] [address], [place] [address] 18 Oct, 2014 [facility] [address] [id number] [address] [place] [address], [place] [address] 18 Oct, 2014 [facility] [address] [id number] [address] [place] [address], [place] [address] 17 Oct, 2014 [facility] [address] [id number] [address] [place] [address], [place] [address] Oct, [facility] [address] [id number] [address] [place] [address], [place] [address] Oct, [facility] [address] [id number] [address] [place] [address], [place] [address] Oct, [facility] [address] [id number] [address] [place] [address], [place] [address] Sep, [facility] [address] [id number] [address] [place] [address], [place] [address] Sep, [facility] [address] [id number] [address] [place] [address], [place] [address] Sep, [facility] [address] [id number] [address] [place] [address], [place] [address] Sep, [facility] [address] [id number] [address] [place] [address], [place] [address] Sep, [facility] [address] [id number] [address] [place] [address], [place] [address] Sep, [facility] [address] [id number] [address] [place] [address], [place] [address] Sep, [facility] [address] [id number] [address] [place] [address], [place] [address] Sep, [facility] [address] [id number] [address] [place] [address], [place] [address] Sep, [facility] [address] [id number] [address] [place] [address], [place] [address] Sep, [facility] [address] [id number] [address] [place] [address], [place] [address] Sep, [facility] [address] [id number] [address] [place] [address], [place] [address] Sep, [facility] [address] [id number] [address] [place] [address], [place] [address] Aug, [facility] [address] [id number] [address] [place] [address] 30 Aug, 2014 [facility] [address] [id number] [address] [place] [address], [place] [address] 29 Aug, 2014 [facility] [address] [id number] [address] [place] [address], [place] [address] 29 Aug, 2014 [facility] [address] [id number] [address] [place] [address], [place] [address] 28 Aug, 2014 [facility] [address] [id number] [address] [place] [address], [place] [address] 28 Aug, 2014 [facility] [address] [id number] [address] [place] [address], [place] [address] 17 Aug, 2014 [facility] [address] [id number] [address] [place] [address], [place] [address] 17 Aug, 2014 [facility] [address] [id number] [address] [place] [address], [place] [address] 30 Jul, 2013 [facility] [address] [id number] [address] [place] [address], [place] [address] 30 Sep, 2013 [facility] [address] [id number] [address] [place] [address], [place] [address] 30 Sep, 2013 [facility] [address] [id number] [address] [place] [address], [place] [address] 30 Sep, 2013 [facility] [address] [id number] [address] [place] [address], [place] [address] 25 Sep, 2013 [facility] [address] [id number] [address] [place] [address] 25 Sep, 2013 [facility] [address] [id number] [address] [place] [address], [place] [address] 15 Sep, 2013 [facility] [address] [id number] [address] [place] [address], [place] [address] 15 Sep, 2013 [facility] [address] [id number] [address] [place] [address], [place] [address] 11 Jul, 2013 [facility] [address] [id number] [facility] [place] [address] Jul, [facility] [address] [id number] [facility] [place] [address] Jun, [facility] [address] [id number] [facility] [place] [address] Jun, [facility] [address] [id number] [address] [place] [address], [place] [address] Jun, [facility] [address] [id number] [address] [place] [address], [place] [address] Jun, [facility] [address] [id number] [address] [place] [address], [place] [address] Jun, [facility] [address] [id number] [address] [place] [address], [place] [address] Jun, [facility] [address] [id number] [address] [place] [address], [place] [address] Jun, [facility] [address] [id number] [address] [place] [address], [place] [address] Jun, [facility] [address] [id number] [address] [place] [address], [place] [address] Jun, [facility] [address] [id number] [address] [place] [address], [place] [address] Jun, [facility] [address] [id number] [address] [place] [address], [place] [address] Jun, [facility] [address] [id number] [address] [place] [address], [place] [address] Jun, [facility] [address] [id number] [address] [place] [address], [place] [address] Jun, [facility] [address] [id number] [address] [place] [address], [place] [address] Jun, [facility] [address] [id number] [address] [place] [address], [place] [address] Jun, [facility] [address] [id number] [facility] [place] [address] Jun, [facility] [address] [id number] [facility] [place] [address] Jun, [facility] [address] [id number] [facility] [place] [address] Jun, [facility] [address] [id number] [address] [place] [address], [place] [address] Jun, [facility] [address] [id number] [address] [place] [address], [place] [address] Jun, [facility] [address] [id number] [address] [place] [address], [place] [address] Jun, [facility] [address] [id number] [address] [place] [address], [place] [address] Jun, [facility] [address] [id number] [address] [place] [address], [place] [address] May, [facility] [address] [id number] [address] [place] [address], [place] [address] May, [facility] [address] [id number] [address] [place] [address], [place] [address] May, [facility] [address] [id number] [address] [place] [address], [place] [address] May, [facility] [address] [id number] [address] [place] [address], [place] [address] May, [facility] [address] [id number] [address] [place] [address], [place] [address] May, [facility] [address] [id number] [address] [place] [address], [place] [address] May, [facility] [address] [id number] [address] [place] [address], [place] [address] May, [facility] [address] [id number] [address] [place] [address], [place] [address] May, [facility] [address] [id number] [facility] [place] [address] May, [facility] [address] [id number] [address] [place] [address], [place] [address] May, [facility] [address] [id number] [address] [place] [address], [place] [address] May, [facility] [address] [id number] [address] [place] [address], [place] [address] May, [facility] [address] [id number] [address] [place] [address], [place] [address] Apr, [facility] [address] [id number] [address] [place] [address], [place] [address] Apr, [facility] [address] [id number] [address] [place] [address], [place] [address] Apr, [facility] [address] [id number] [address] [place] [address], [place] [address] Apr, [facility] [address] [id number] [address] [place] [address], [place] [address] Apr, [facility] [address] [id number] [address] [place] [address], [place] [address] Apr, [facility] [address] [id number] [address] [place] [address], [place] [address] Apr, [facility] [address] [id number] [address] [place] [address], [place] [address] Apr, [facility] [address] [id number] [address] [place] [address], [place] [address] Apr, [facility] [address] [id number] [address] [place] [address], [place] [address] March, [facility] [address] [id number] [address] [place] [address], [place] [address] March, [facility] [address] [id number] [facility] [place] [address] March, [facility] [address] [id number] [address] [place] [address], [place] [address] March, [facility] [address] [id number] [address] [place] [address], [place] [address] March, [facility] [address] [id number] [address] [place] [address], [place] [address] March, [facility] [address] [id number] [address] [place] [address], [place] [address] March, [facility] [address] [id number] [address] [place] [address], [place] [address] March, [facility] [address] [id number] [address] [place] [address], [place] [address] March, [facility] [address] [id number] [address] [place] [address], [place] [address] March, [facility] [address] [id number] [address] [place] [address], [place] [address] March, [facility] [address] [id number] [address] [place] [address], [place] [address] March, [facility] [address] [id number] [address] [place] [address], [place] [address] March, [facility] [address] [id number] [address] [place] [address], [place] [address] March, [facility] [address] [id number] [address] [place] [address], [place] [address] March, [facility] [address] [id number] [address] [place] [address], [place] [address] March, [facility] [address] [id number] [address] [place] [address], [place] [address] March, [facility] [address] [id number] [address] [place] [address], [place] [address] March, [facility] [address] [id number] [facility] [place] [address] March, [facility] [address] [id number] [address] [place] [address], [place] [address] March, [facility] [address] [id number] [address] [place] [address], [place] [address] Feb, [facility] [address] [id number] [address] [place] [address], [place] [address] Feb, [facility] [address] [id number] [address] [place] [address], [place] [address] Feb, [facility] [address] [id number] [address] [place] [address], [place] [address] Feb, [facility] [address] [id number] [address] [place] [address], [place] [address] Feb, [facility] [address] [id number] [address] [place] [address], [place] [address] Feb, [facility] [address] [id number] [address] [place] [address], [place] [address] Feb, [facility] [address] [id number] [address] [place] [address], [place] [address] Feb, [facility] [address] [id number] [address] [place] [address], [place] [address] Jan, [facility] [address] [id number] [address] [place] [address], [place] [address] Jan, [facility] [address] [id number] [address] [place] [address], [place] [address] Jan, [facility] [address] [id number] [address] [place] [address], [place] [address] 24 Jan, 2014 [facility] [address] [id number] [address] [place] [address], [place] [address] 13 Jan, 2014 [facility] [address] [id number] [address] [place] [address] 13 Jan, 2014 [facility] [address] [id number] [address] [place] [address], [place] [address] Jan, [facility] [address] [id number] [address] [place] [address], [place] [address] Jan, [facility] [address] [id number] [address] [place] [address], [place] [address] Jan, [facility] [address] [id number] [address] [place] [address], [place] [address] Jan, [facility] [address] [id number] [address] [place] [address], [place] [address] Dec, [facility] [address] [id number] [address] [place] [address], [place] [address] Dec, [facility] [address] [id number] [address] [place] [address], [place] [address] Dec, [facility] [address] [id number] [address] [place] [address], [place] [address] Dec, [facility] [address] [id number] [address] [place] [address], [place] [address] Dec, [facility] [address] [id number] [address] [place] [address], [place] [id number] Dec, [facility] [address] [id number] [address] [place] [address], [place] [address] Dec, [facility] [address] [id number] [address] [place] [address], [place] [address] Dec, [facility] [address] [id number] [address] [place] [address], [place] [address] Nov, [facility] [address] [id number] [address] [place] [address], [place] [address] Nov, [facility] [address] [id number] [address] [place] [address], [place] [address] Nov, [facility] [address] [id number] [address] [place] [address], [place] [address] Nov, [facility] [address] [id number] [address] [place] [address], [place] [address] Nov, [facility] [address] [id number] [address] [place] [address], [place] [address] Nov, [facility] [address] [id number] [address] [place] [address], [place] [address] Nov, [facility] [address] [id number] [address] [place] [address], [place] [address] Nov, [facility] [address] [id number] [address] [place] [address], [place] [address] Nov, [facility] [address] [id number] [address] [place] [address], [place] [address] Nov, [facility] [address] [id number] [address] [place] [address], [place] [address] Nov, [facility] [address] [id number] [address] [place] [address], [place] [address] Nov, [facility] [address] [id number] [address] [place] [address], [place] [address] Nov, [facility] [address] [id number] [address] [place] [address], [place] [address] Oct, [facility] [address] [id number] [address] [place] [address], [place] [address] Oct, [facility] [address] [id number] [address] [place] [address], [place] [address] Oct, [facility] [address] [id number] [address] [place] [address], [place] [address] Oct, [facility] [address] [id number] [address] [place] [address], [place] [address] Oct, [facility] [address] [id number] [address] [place] [address], [place] [address] 23 Oct, 2013 [facility] [address] [id number] [address] [place] [address], [place] [address] 18 Oct, 2013 [facility] [address] [id number] [address] [place] [address], [place] [address] 18 Oct, 2013 [facility] [address] [id number] [address] [place] [address], [place] [address] 17 Oct, 2013 [facility] [address] [id number] [address] [place] [address], [place] [address] 17 Oct, 2013 [facility] [address] [id number] [address] [place] [address], [place] [address] Oct, [facility] [address] [id number] [address] [place] [address], [place] [address] Oct, [facility] [address] [id number] [address] [place] [address], [place] [address] Oct, [facility] [address] [id number] [address] [place] [address], [place] [address] 02 Oct, 2013 [facility] [address] [id number] [address] [place] [address], [place] [address] 14 Sep, 2013 [facility] [address] [id number] [address] [place] [address], [place] [address] 14 Sep, 2013 [facility] [address] [id number] [address] [place] [address], [place] [address] 05 Sep, 2013 [facility] [address] [id number] [address] [place] [address], [place] [address] 05 Sep, 2013 [facility] [address] [id number] [address] [place] [address], [place] [address] 04 Sep, 2013 [facility] [address] [id number] [address] [place] [address], [place] [address] 04 Sep, 2013 [facility] [address] [id number] [address] [place] [address], [place] [address] Sep, [facility] [address] [id number] [address] [place] [address], [place] [address] Sep, [facility] [address] [id number] [address] [place] [address], [place] [address] Sep, [facility] [address] [id number] [address] [place] [address], [place] [address] Sep, [facility] [address] [id number] [address] [place] [address], [place] [address] Aug, [facility] [address] [id number] [address] [place] [address], [place] [address] Aug, [facility] [address] [id number] [address] [place] [address], [place] [address] Aug, [facility] [address] [id number] [address] [place] [address], [place] [address] Aug, [facility] [address] [id number] [address] [place] [address], [place] [address] Aug, [facility] [address] [id number] [address] [place] [address], [place] [address] Aug, [facility] [address] [id number] [address] [place] [address] Aug, [facility] [address] [id number] [address] [place] [address] Aug, [facility] [address] [id number] [address] [place] [address] Aug, [facility] [address] [id number] [address] [place] [address], [place] [address] Aug, [facility] [address] [id number] [address] [place] [address] Aug, [facility] [address] [id number] [address] [place] [address] Aug, [facility] [address] [id number] [address] [place] [address] 18 Aug, 2013 [facility] [address] [id number] [address] [place] [address], [place] [address] 18 Aug, 2013 [facility] [address] [id number] [address] [place] [address], [place] [address] 17 Aug, 2013 [facility] [address] [id number] [address] [place] [address], [place] [address] 14 Aug, 2013 [facility] [address] [id number] [address] [place] [address], [place] [address] 14 Aug, 2013 [facility] [address] [id number] [address] [place] [address], [place] [address] 01 Aug, 2013 [facility] [address] [id number] [address] [place] [address], [place] [address] 20 Jul, 2013 [facility] [address] [id number] [address] [place] [address], [place] [address] 19 Jul, 2013 [facility] [address] [id number] [address] [place] [address], [place] [address] 18 Jul, 2013 [facility] [address] [id number] [address] [place] [address], [place] [address] 11 Jul, 2013 [facility] [address] [id number] [address] [place] [address], [place] [address] 11 Jul, 2013 [facility] [address] [id number] [address] [place] [address], [place] [address] 28 Jun, 2013 [facility] [address] [id number] [address] [place] [address], [place] [address] 23 Jun, 2013 [facility] [address] [id number] [address] [place] [address], [place] [address] 23 Jun, 2013 [facility] [address] [id number] [address] [place] [address], [place] [address] 15 Jun, 2013 [facility] [address] [id number] [address] [place] [address], [place] [address] 14 Jun, 2013 [facility] [address] [id number] [facility] [place] [address] Jun, [facility] [address] [id number] [address] [place] [address], [place] [address] Jun, [facility] [address] [id number] [address] [place] [address], [place] [address] Jun, [facility] [address] [id number] [address] [place] [address], [place] [address] Jun, [facility] [address] [id number] [address] [place] [address], [place] [address] Jun, [facility] [address] [id number] [address] [place] [address], [place] [address] May, [facility] [address] [id number] [address] [place] [address], [place] [address] May, [facility] [address] [id number] [address] [place] [address], [place] [address] May, [facility] [address] [id number] [address] [place] [address], [place] [address] May, [facility] [address] [id number] [address] [place] [address], [place] [address] May, [facility] [address] [id number] [address] [place] [address], [place] [address] May, [facility] [address] [id number] [address] [place] [address], [place] [address] May, [facility] [address] [id number] [address] [place] [address], [place] [address] May, [facility] [address] [id number] [address] [place] [address], [place] [address] May, [facility] [address] [id number] [address] [place] [address], [place] [address] Apr, [facility] [address] [id number] [address] [place] [address], [place] [address] Apr, [facility] [address] [id number] [address] [place] [address], [place] [address] Apr, [facility] [address] [id number] [address] [place] [address], [place] [address] Apr, [facility] [address] [id number] [address] [place] [address], [place] [address] Apr, [facility] [address] [id number] [address] [place] [address], [place] [address] Apr, [facility] [address] [id number] [address] [place] [address], [place] [address] Apr, [facility] [address] [id number] [address] [place] [address], [place] [address] March, [facility] [address] [id number] [address] [place] [address], [place] [address] Feb, [facility] [address] [id number] [address] [place] [address], [place] [address] Feb, [facility] [address] [id number] [address] [place] [address], [place] [address] Feb, [facility] [address] [id number] [address] [place] [address], [place] [address] Jan, [facility] [address] [id number] [address] [place] [address], [place] [address] Jan, [facility] [address] [id number] [address] [place] [address], [place] [address] Jan, [facility] [address] [id number] [address] [place] [address], [place] [address] 14 Jan, 2013 [facility] [address] [id number] [address] [place] [address], [place] [address] 12 Jan, 2013 [facility] [address] [id number] [address] [place] [address], [place] [address] 08 Jan, 2013 [facility] [address] [id number] [address] [place] [address], [place] [address] 07 Jan, 2013 [facility] [address] [id number] [address] [place] [address], [place] [address] 04 Jan, 2013 [facility] [address] [id number] [address] [place] [address], [place] [address] 28 Dec, 2012 [facility] [address] [id number] [address] [place] [address], [place] [address] 25 Dec, 2012 [facility] [address] [id number] [address] [place] [address], [place] [address] 13 Dec, 2012 [facility] [address] [id number] [address] [place] [address], [place] [address] 11 Dec, 2012 [facility] [address] [id number] [address] [place] [address], [place] [address] 07 Dec, 2012 [facility] [address] [id number] [address] [place] [address], [place] [address] 06 Dec, 2012 [facility] [address] [id number] [address] [place] [address], [place] [address] 05 Dec, 2012 [facility] [address] [id number] [address] [place] [address], [place] [address] Nov, [facility] [address] [id number] [address] [place] [address], [place] [address] 24 Nov, 2012 [facility] [address] [id number] [address] [place] [address], [place] [address] 18 Nov, 2012 [facility] [address] [id number] [address] [place] [address], [place] [address] 15 Nov, 2012 [facility] [address] [id number] [address] [place] [address], [place] [address] 10 Nov, 2012 [facility] [address] [id number] [address] [place] [address], [place] [address] 10 Nov, 2012 [facility] [address] [id number] [address] [place] [address], [place] [address] Nov, [facility] [address] [id number] [address] [place] [address], [place] [address] Oct, [facility] [address] [id number] [address] [place] [address], [place] [address] Oct, [facility] [address] [id number] [address] [place] [address], [place] [address] Oct, [facility] [address] [id number] [address] [place] [address], [place] [address] Oct, [facility] [address] [id number] [address] [place] [address], [place] [address] Oct, [facility] [address] [id number] [address] [place] [address], [place] [address] Oct, [facility] [address] [id number] [address] [place] [address], [place] [address] Oct, [facility] [address] [id number] [address] [place] [address], [place] [address] Oct, [facility] [address] [id number] [address] [place] [address], [place] [address] Oct, [facility] [address] [id number] [address] [place] [address], [place] [address] Oct, [facility] [address] [id number] [address] [place] [address], [place] [address] Oct, [facility] [address] [id number] [address] [place] [address], [place] [address] Oct, [facility] [address] [id number] [address] [place] [address], [place] [address] Sep, [facility] [address] [id number] [address] [place] [address], [place] [address] Sep, [facility] [address] [id number] [address] [place] [address], [place] [address] Sep, [facility] [address] [id number] [address] [place] [address] Sep, [facility] [address] [id number] [address] [place] [address], [place] [address] Sep, [facility] [address] [id number] [address] [place] [address] Sep, [facility] [address] [id number] [address] [place] [address] Sep, [facility] [address] [id number] [address] [place] [address] Sep, [facility] [address] [id number] [address] [place] [address], [place] [address] Sep, [facility] [address] [id number] [address] [place] [address] Sep, [facility] [address] [id number] [address] [place] [address] Sep, [facility] [address] [id number] [address] [place] [address] Aug, [facility] [address] [id number] [address] [place] [address] Aug, [facility] [address] [id number] [address] [place] [address] Aug, [facility] [address] [id number] [address] [place] [address] Aug, [facility] [address] [id number] [address] [place] [address] Aug, [facility] [address] [id number] [address] [place] [address] Aug, [facility] [address] [id number] [address] [place] [address] Aug, [facility] [address] [id number] [address] [place] [address] Aug, [facility] [address] [id number] [facility] [place] [address] Aug, [facility] [address] [id number] [address] [place] [address], [place] [address] Aug, [facility] [address] [id number] [address] [place] [address], [place] [address] Jul, [facility] [address] [id number] [address] [place] [address], [place] [address] Jul, [facility] [address] [id number] [address] [place] [address], [place] [address] Jul, [facility] [address] [id number] [address] [place] [address], [place] [address] Jul, [facility] [address] [id number] [address] [place] [address], [place] [address] Jun, [facility] [address] [id number] [address] [place] [address], [place] [address] Jun, [facility] [address] [id number] [address] [place] [address], [place] [address] Jun, [facility] [address] [id number] [address] [place] [address], [place] [address] Jun, [facility] [address] [id number] [address] [place] [address], [place] [address] Jun, [facility] [address] [id number] [address] [place] [address], [place] [address] Jun, [facility] [address] [id number] [address] [place] [address], [place] [address] Jun, [facility] [address] [id number] [address] [place] [address], [place] [address] May, [facility] [address] [id number] [address] [place] [address], [place] [address] May, [facility] [address] [id number] [address] [place] [address], [place] [address] May, [facility] [address] [id number] [address] [place] [address], [place] [address] May, [facility] [address] [id number] [address] [place] [address], [place] [address] May, [facility] [address] [id number] [address] [place] [address], [place] [address] Apr, [facility] [address] [id number] [address] [place] [address], [place] [address] Apr, [facility] [address] [id number] [address] [place] [address], [place] [address] Apr, [facility] [address] [id number] [address] [place] [address], [place] [address] Apr, [facility] [address] [id number] [address] [place] [address], [place] [address] Apr, [facility] [address] [id number] [address] [place] [address], [place] [address] March, [facility] [address] [id number] [address] [place] [address], [place] [address] March, [facility] [address] [id number] [address] [place] [address], [place] [address] March, [facility] [address] [id number] [address] [place] [address], [place] [address] March, [facility] [address] [id number] [address] [place] [address], [place] [address] March, [facility] [address] [id number] [address] [place] [address], [place] [address] March, [facility] [address] [id number] [address] [place] [address], [place] [address] March, [facility] [address] [id number] [address] [place] [address], [place] [address] March, [facility] [address] [id number] [address] [place] [address], [place] [address] March, [facility] [address] [id number] [address] [place] [address], [place] [address] March, [facility] [address] [id number] [address] [place] [address], [place] [address] 30 Feb, 2012 [facility] [address] [id number] [address] [place] [address], [place] [address] Feb, [facility] [address] [id number] [address] [place] [address], [place] [address] Feb, [facility] [address] [id number] [address] [place] [address], [place] [address] Feb, [facility] [address] [id number] [address] [place] [address], [place] [address] Feb, [facility] [address] [id number] [address] [place] [address], [place] [address] Feb, [facility] [address] [id number] [address] [place] [address], [place] [address] Feb, [facility] [address] [id number] [address] [place] [address], [place] [address] Feb, [facility] [address] [id number] [address] [place] [address], [place] [address] Feb, [facility] [address] [id number] [address] [place] [address], [place] [address] Jan, [facility] [address] [id number] [address] [place] [address], [place] [address] Jan, [facility] [address] [id number] [address] [place] [address], [place] [address] 05 Jan, 2012 [facility] [address] [id number] [address] [place] [address], [place] [address] Jan, [facility] [address] [id number] [address] [place] [address], [place] [address] Dec, [facility] [address] [id number] [address] [place] [address] Dec, [facility] [address] [id number] [address] [place] [address] Nov, [facility] [address] [id number] [address] [place] [address] Nov, [facility] [address] [id number] [address] [place] [address] Nov, [facility] [address] [id number] [address] [place] [address] Nov, [facility] [address] [id number] [address] [place] [address] Nov, [facility] [address] [id number] [address] [place] [address] Oct, [facility] [address] [id number] [address] [place] [address] Oct, [facility] [address] [id number] [address] [place] [address] Oct, [facility] [address] [id number] [address] [place] [address] Oct, [facility] [address] [id number] [address] [place] [address] Oct, [facility] [address] [id number] [address] [place] [address] Oct, [facility] [facility] [address] [id number] [address] [place] [id number] Oct, [facility] [address] [id number] [address] [place] [id number] Oct, [facility] [address] [id number] [address] [place] [id number] Sep, IMMUNIZATIONS No Known Immunizations SOCIAL HISTORY [...] fever, discharged 11/27/2017 11/26/2017 Hospitalization History [facility]- Went Unrepsonsive, Hit head 2017 Hospitalization History [facility]- Back Pain 05/05/ 8
--- OUTSIDE RECORDS SUMMARY | 2020-06-18 15:34 | XMS REPORT ---
Author Author Sanjuanita Abdul Doctor Organization [facility] Address Unknown Phone Unavailable Care Team Providers Care Hybrid Technologist Name Role Phone Migration, Doctor Unavailable Unavailable PROBLEMS Type Condition ICD9-CM Code ENT57-PC Code Onset Dates Condition S tatus SNOMED Code Problem Hypertension I10 Active 5596352 3 Problem Hyperlipidemia E78.5 Active 50215 004 Problem Coronary artery disease I25.10 Active 16474251 Problem Low back pain M54.5 Active 173940 009 Problem Other chronic pain G89.29 Active 8 6410144 Problem Ventral hernia without obstruction or gangrene K43 .9 Active 876466071 Problem Type 2 diabetes mellitus wit hout complication, without long-term current use of insulin E11.9 Active 025362169 Problem Anxiety F41.9 Active 18689993 Problem Peripheral vascular disease I73.9 Ac tive 439530965 Problem Insomnia G47.00 Active 185512800 Problem Microcytic anemia D50.9 Active 23 7214924 Problem Pharyngeal dysphagia R13.13 Active 29026246905724 Problem Other iron deficiency anemia D50.8 A ctive 89745000 Problem Reactive depression F32.9 Active 21338901 Problem Paroxysmal atrial fibrillation I48.0 Active 889487032 Problem Postmenopausal atrophic vaginitis N95.2 Active 98489212 Problem Encounter for suprapubic catheter care Z43.5 Active 637183019 Problem Neurogenic bladder N31.9 Active 3 [id number] ALLERGIES No Information ENCOUNTERS Encounter Location Date Diagnosis [facility] [address] [id number] [address] [place] [address] May, [facility] [address] [id number] [address] [place] [address] May, Strain of right shoulder, scherer bsequent encounter S46.911D and Anxiety F41.9 [facility] [address] [id number] [address] [place] [address] Apr, Anxiety F41.9 and Strain of right shoulder, subsequent encounter S46.911D [facility] [address] [id number] [address] [place] [address] Apr, [facility] [address] [id number] [address] [place] [address] March, [facility] [address] [id number] [address] [place] [address] March, Anxiety F41.9 and Strain of right shoulder, subsequent encounter S46.911D [facility] [address] [id number] [address] [place] [address] Feb, Anxiety F41.9 and Strain of right shoulder, subsequent encounter S46.911D [facility] [address] [id number] [address] [place] [address] Jan, Anxiety F41.9 and Strain of right shoulder, subsequent encounter S46.911D [facility] [address] [id number] [address] [place] [id number] Jan, Via [facility] [address] [place] [id number] Jan, Neurogenic bladder N31.9 [facility] [address] [id number] [address] [place] [address] Dec, [facility] [address] [id number] [address] [place] [address] Dec, [facility] [address] [id number] [address] [place] [address] Dec, Anxiety F41.9 and Strain of right shoulder, subsequent encounter S46.911D [facility] [address] [id number] [address] [place] [address] 10 Dec, 2019 Other iron deficiency anemia D50.8 [facility] [address] [id number] [address] [place] [address] Dec, [facility] [address] [place] [id number] 04 Dec, 2019 Encounter for suprapubic catheter care Z 43.5 and Microcytic anemia D50.9 [facility] [address] [id number] [address] [place] [address] 03 Dec, 2019 [facility] [address] [id number] [address] [place] [id number] Nov, Anxiety F41.9 and Strain of right shoulder, subsequent encounter S46.911D [facility] [address] [id number] [address] [place] [address] Nov, Hypertension I10 [facility] [address] [place] [id number] Nov, Pneumonia of both lungs due to infectiou s organism, unspecified part of lung J18.9 and Suprapubic catheter Z93.59 [facility] [address] [id number] [address] [place] [address] Nov, Hypertension I10 and Reactiv e depression F32.9 [facility] [address] [id number] [address] [place] [id number] Oct, Strain of right shoulder, scherer bsequent encounter S46.911D and Anxiety F41.9 [place] [address] [id number] [address] [place] [address] Oct, [facility] [employer] [address] [place] [id number] Oct, Suprapubic catheter Z93.59 and Candidias is, intertriginous B37.2 [place] [address] [id number] [address] [place] [address] Oct, Suprapubic catheter Z93.59 [facility] [address] [id number] [address] [place] [address] Oct, Anxiety F41.9 and Strain of right shoulder, subsequent encounter S46.911D [facility] [address] [id number] [address] [place] [address] Sep, [facility] [address] [id number] [address] [place] [address] Sep, [facility] [address] [id number] [address] [place] [address] Sep, [facility] [address] [place] [id number] Sep, Suprapubic catheter Z93.59 [facility] [address] [id number] [address] [place] [address] Sep, Anxiety F41.9 and Strain of right shoulder, subsequent encounter S46.911D [facility] [address] [id number] [address] [place] [address] Aug, [facility] [address] [id number] [address] [place] [address] Aug, [facility] [address] [id number] [address] [place] [address] Aug, Anxiety F41.9 and Strain of right shoulder, subsequent encounter S46.911D [facility] [employer] [address] [place] [id number] Aug, Suprapubic catheter Z93.59 [facility] [address] [id number] [address] [place] [address] Jul, Strain of right shoulder, scherer bsequent encounter S46.911D and Anxiety F41.9 [facility] [address] [id number] [address] [place] [address] Jul, Anxiety F41.9 [facility] [address] [id number] [address] [place] [address] Jun, [facility] [address] [id number] [address] [place] [address] Jun, [facility] [address] [id number] [address] [place] [address] Jun, [facility] [address] [id number] [address] [place] [address] Jun, Strain of right shoulder, scherer bsequent encounter S46.911D [place] [address] [id number] [address] [place] [address] Jun, Strain of right shoulder, scherer bsequent encounter S46.911D [place] [address] [id number] [address] [place] [address] Jun, Anxiety F41.9 [facility] [address] [place] [id number] Jun, Neurogenic bladder N31.9 and Anxiety F41 .9 [facility] [address] [place] [id number] May, Anxiety F41.9 [place] [address] [id number] [address] [place] [address] May, Dysuria R30.0 [place] [address] [id number] [address] [place] [address] May, Strain of right shoulder, scherer bsequent encounter S46.911D and Anxiety F41.9 [place] [address] [id number] [address] [place] [address] Apr, [facility] [address] [place] [id number] Apr, Strain of right shoulder, subsequent enc ounter S46.911D [place] [address] [id number] [address] [place] [address] 14 Apr, 2019 Strain of right shoulder, scherer bsequent encounter S46.911D and Anxiety F41.9 [facility] [address] [place] [id number] Apr, Type 2 diabetes mellitus without complic ation, without long-term current use of insulin E11.9 and Neurogenic bladder N31.9 [facility] [address] [place] [id number] Apr, Strain of right shoulder, subsequent enc ounter S46.911D ; History of GI bleed Z87.19 ; Neurogenic bladder N31.9 and Reactive depression F32.9 [facility] [address] [id number] [address] [place] [address] Apr, Acute pain of left shoulder M25.512 [facility] [address] [id number] [address] [place] [address] Apr, [facility] [address] [id number] [address] [place] [address] Apr, Anxiety F41.9 and 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 [facility] [employer] [address] [place] [id number] March, Gastrointestinal hemorrhage associated w ith acute gastritis K29.01 [facility] [address] [id number] [address] [place] [address] March, Via [facility] [address] [place] [id number] March, Bronchitis J40 [facility] [address] [id number] [address] [place] [address] March, Cough R05 [facility] [address] [id number] [address] [place] [address] March, Other chronic pain G89.29 [facility] [address] [id number] [address] [place] [address] March, Anxiety F41.9 [facility] [address] [id number] [address] [place] [address] March, [facility] [address] [id number] [address] [place] [address] Feb, Other chronic pain G89.29 [facility] [address] [id number] [address] [place] [address] Feb, Anxiety F41.9 [facility] [address] [id number] [address] [place] [address] Feb, Other chronic pain G89.29 [facility] [address] [place] [id number] Feb, Neurogenic bladder N31.9 and Suprapubic catheter Z93.59 [facility] [address] [id number] [address] [place] [address] Jan, Anxiety F41.9 [facility] [address] [id number] [address] [place] [address] Dec, Anxiety F41.9 [facility] [address] [id number] [address] [place] [address] Dec, Other chronic pain G89.29 an d Anxiety F41.9 [facility] [address] [id number] [address] [place] [address] Dec, [facility] [employer] [address] [place] [id number] Dec, Neurogenic bladder N31.9 and Suprapubic catheter Z93.59 [facility] [address] [id number] [address] [place] [address] Nov, Other chronic pain G89.29 an d Anxiety F41.9 [facility] [address] [id number] [address] [place] [phone] Nov, Via [employer] [address] [place] [id number] Nov, Suprapubic catheter Z93.59 [facility] [address] [id number] [address] [place] [address] Oct, Other chronic pain G89.29 an d Anxiety F41.9 [facility] [address] [id number] [address] [place] [address] Oct, [facility] [address] [id number] [address] [place] [address] Oct, Suprapubic catheter Z93.59 [facility] [address] [id number] [address] [place] [address] Oct, [facility] [address] [place] [id number] Oct, [facility] [address] [id number] [address] [place] [address] Oct, Anxiety F41.9 [facility] [address] [id number] [address] [place] [address] Oct, Anxiety F41.9 [facility] [employer] [address] [place] [id number] Oct, Other chronic pain G89.29 [facility] [address] [id number] [address] [place] [address] Sep, Other chronic pain G89.29 [facility] [employer] [facility] [address] [place] [id number] Sep, Suprapubic catheter Z93.59 and Cervicalg ia M54.2 [facility] [address] [id number] [address] [place] [address] Sep, [facility] [address] [id number] [address] [place] [address] Sep, [facility] [address] [id number] [address] [place] [address] Sep, [facility] [address] [place] [id number] Aug, Cystitis N30.90 [facility] [address] [id number] [address] [place] [address] Aug, [facility] [address] [id number] [address] [place] [address] Aug, Other chronic pain G89.29 [facility] [address] [id number] [address] [place] [address] Aug, [facility] [address] [place] [id number] Aug, Encounter for suprapubic catheter care Z 43.5 [facility] [address] [id number] [address] [place] [address] Jul, Via [employer] [address] [place] [id number] Jul, [facility] [address] [id number] [address] [place] [address] Jul, Other chronic pain G89.29 [facility] [address] [id number] [address] [place] [id number] Jul, [place] [address] [id number] [address] [place] [address] Jul, Via [facility] [address] [place] [id number] Jun, Postmenopausal atrophic vaginitis N95.2 [place] [address] [id number] [address] [place] [address] Jun, Other chronic pain G89.29 [place] [address] [id number] [address] [place] [address] Jun, Via [employer] [address] [place] [id number] May, Anxiety F41.9 ; Type 2 diabetes mellitus without complication, without long-term current use of insulin E11.9 ; Hypertension I10 ; Low back pain M54.5 ; Paroxysmal atrial fibrillation I48.0 and 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 [place] [address] [id number] [address] [place] [address] May, Other chronic pain G89.29 [facility] [employer] [address] [place] [id number] May, Low back pain M54.5 [place] [address] [id number] [address] [place] [address] May, [facility] [address] [id number] [address] [place] [address] Apr, Other chronic pain G89.29 [facility] [address] [id number] [address] [place] [address] Apr, [facility] [address] [id number] [address] [place] [address] Apr, Via [employer] [address] [place] [id number] 19 Apr, 2018 Closed compression fracture of L3 lumbar vertebra with routine healing, subsequent encounter S32.030D [facility] [address] [place] [id number] 14 Apr, 2018 Low back pain M54.5 [facility] [address] [place] [id number] 12 Apr, 2018 Coccydynia M53.3 [facility] [address] [id number] [address] [place] [address] March, [facility] [address] [id number] [address] [place] [address] March, Other chronic pain G89.29 [facility] [address] [id number] [address] [place] [address] March, [facility] [address] [id number] [address] [place] [address] March, [facility] [address] [id number] [address] [place] [address] Feb, [facility] [address] [id number] [address] [place] [address] Feb, Other chronic pain G89.29 [facility] [employer] [address] [place] [id number] Feb, Other chronic pain G89.29 and Anxiety F4 1.9 [facility] [address] [id number] [address] [place] [address] Feb, [facility] [address] [id number] [address] [place] [address] Jan, [facility] [address] [id number] [address] [place] [id number] Jan, [facility] [address] [id number] [address] [place] [address] Jan, [facility] [address] [id number] [address] [place] [address] Jan, [facility] [address] [id number] [address] [place] [address] Dec, [facility] [address] [place] [id number] Dec, Peripheral vascular disease I73.9 ; 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 ; Other chronic pain G89.29 ; Anxiety F41.9 ; Reactive depression F32.9 ; Insomnia G47.00 and Type 2 diabetes mellitus without complication, without long-term current use of insulin E11.9 [facility] [address] [place] [address] [id number] [place] [address] Nov, [facility] [address] [id number] [place] [id number] Nov, Anxiety F41.9 [facility] [address] [id number] [address] [place] [address] Nov, [facility] [address] [id number] [place] [id number] Nov, Anxiety F41.9 [facility] [address] [place] [id number] Nov, Status post surgery Z98.890 ; Confused R 41.0 ; Anxiety F41.9 and Other chronic pain G89.29 [facility] [address] [id number] [place] [id number] Nov, Other chronic pain G89.29 [facility] [address] [id number] [address] [place] [address] Oct, [facility] [address] [id number] [id number] Oct, Other chronic pain G89.29 [facility] [address] [id number] [address] [place] [address] Oct, Anxiety F41.9 [facility] [address] [id number] [place] [id number] Sep, Other chronic pain G89.29 [facility] [address] [id number] [place] [id number] Sep, [facility] [employer] [address] [place] [id number] Aug, Dysuria R30.0 and Anxiety F41.9 [facility] [address] [id number] [address] [place] [address] Aug, [facility] [address] [id number] [place] [id number] Aug, Other chronic pain G89.29 [facility] [address] [id number] [address] [place] [address] Jul, Other chronic pain G89.29 [facility] [address] [id number] [place] [id number] Jun, [facility] [address] [id number] [place] [id number] Jun, Other chronic pain G89.29 [facility] [address] [id number] [address] [place] [address] Jun, [facility] [address] [id number] [address] [place] [address] May, Other chronic pain G89.29 [facility] [address] [id number] [address] [place] [address] Apr, Other chronic pain G89.29 [facility] [address] [place] [id number] Apr, Reactive depression F32.9 and Pharyngeal dysphagia R13.13 [facility] [address] [id number] [address] [place] [address] Apr, Urinary tract infection with out hematuria, site unspecified N39.0 [facility] [address] [id number] [address] [place] [address] March, Other chronic pain G89.29 [facility] [address] [id number] [address] [place] [id number] Feb, Other chronic pain G89.29 [facility] [address] [id number] [address] [place] [phone] Feb, [facility] [id number] [place] [id number] Feb, [facility] [employer] [address] [place] [id number] Feb, Dysuria R30.0 and Ventral hernia without obstruction or gangrene K43.9 [facility] [address] [facility] [id number] [address] [place] [id number] Jan, Other chronic pain G89.29 [facility] [address] [id number] [place] [id number] Dec, Other chronic pain G89.29 [facility] [address] [id number] [address] [place] [id number] Nov, Other chronic pain G89.29 [facility] [address] [place] [id number] Nov, Lymphadenitis I88.9 [facility] [address] [id number] [address] [place] [id number] Nov, Other chronic pain G89.29 [facility] [address] [id number] [address] [place] [id number] Nov, [facility] [address] [id number] [place] [id number] Nov, Other chronic pain G89.29 [facility] [address] [place] [id number] Oct, Low back pain M54.5 ; Hypertension I10 a nd Type 2 diabetes mellitus without complication, without long-term current use of insulin E11.9 [facility] [address] [id number] [address] [place] [id number] Oct, [facility] [address] [id number] [address] [place] [phone] Oct, [facility] [address] [id number] [address] [place] [phone] Oct, [facility] [address] [id number] [address] [place] [id number] Oct, [facility] [address] [id number] [address] [place] [id number] Sep, [facility] [address] [id number] [address] [place] [address] Sep, [facility] [address] [id number] [address] [place] [address] Aug, Other chronic pain G89.29 [facility] [address] [id number] [address] [place] [address] Jul, [facility] [address] [id number] [address] [place] [address] Jul, [facility] [address] [id number] [address] [place] [address] Jul, [facility] [address] [id number] [address] [place] [address] Jun, [facility] [address] [id number] [address] [place] [address] Jun, Via [facility] [address] [place] [id number] Jun, Low back pain M54.5 ; Other chronic pain G89.29 and Coronary artery disease I25.10 [facility] [address] [id number] [address] [place] [address] Jun, [facility] [address] [id number] [address] [place] [address] May, [facility] [address] [id number] [address] [place] [address] May, [facility] [address] [id number] [address] [place] [address] May, Other chronic pain G89.29 [facility] [address] [id number] [address] [place] [address] May, [facility] [address] [id number] [address] [place] [address] Apr, [facility] [address] [id number] [address] [place] [address] 17 Apr, 2016 Acute cystitis without hemat uria N30.00 [facility] [address] [id number] [address] [place] [address] 16 Apr, 2016 Acute cystitis without hemat uria N30.00 ; Coronary artery disease I25.10 ; Low back pain M54.5 and Other chronic pain G89.29 [facility] [address] [id number] [address] [place] [address] Apr, Other chronic pain G89.29 [facility] [address] [id number] [address] [place] [address] March, Other chronic pain G89.29 [facility] [address] [id number] [address] [place] [address] 18 Feb, 2016 [facility] [address] [id number] [address] [place] [address] Feb, Arthritis M19.90 [facility] [address] [id number] [address] [place] [address] Feb, [facility] [address] [id number] [address] [place] [address] Jan, [facility] [address] [id number] [address] [place] [address] Jan, [facility] [address] [id number] [address] [place] [address] Jan, Other chronic pain G89.29 [facility] [address] [id number] [address] [place] [address] Jan, Hypertension I10 ; Coronary artery disease I25.10 and Insomnia G47.00 [facility] [address] [id number] [address] [place] [address] Jan, [facility] [address] [id number] [address] [place] [address] Dec, Right hip pain M25.551 [facility] [address] [id number] [address] [place] [address] Dec, [facility] [address] [id number] [address] [place] [address] Dec, [facility] [address] [id number] [address] [place] [address] Dec, [facility] [address] [id number] [address] [place] [address] Dec, Other chronic pain G89.29 [facility] [address] [id number] [address] [place] [address] Dec, [facility] [address] [id number] [address] [place] [address] Nov, [facility] [address] [id number] [address] [place] [address] Nov, Other chronic pain G89.29 [facility] [address] [id number] [address] [place] [address] Nov, Right hip pain M25.551 and C oronary artery disease I25.10 [facility] [address] [id number] [address] [place] [id number] Nov, Other chronic pain G89.29 [facility] [address] [id number] [address] [place] [address] Oct, [facility] [address] [id number] [address] [place] [address] Oct, [facility] [address] [id number] [address] [place] [address] Sep, [facility] [address] [id number] [address] [place] [address] Sep, [facility] [address] [id number] [address] [place] [id number] Aug, [facility] [address] [facility] [id number] [address] [place] [address] Aug, Hypertension I10 ; Coronary artery disease I25.10 and Arthritis M19.90 [facility] [address] [id number] [address] [place] [id number] Jun, [facility] [address] [id number] [address] [place] [address] Jun, Essential hypertension, jayson gn 401.1 ; Other chronic pain 338.29 and Chronic airway obstruction, not elsewhere classified 496 [facility] [address] [id number] [address] [place] [address] Jun, [facility] [address] [id number] [address] [place] [address] Jun, [facility] [address] [id number] [address] [place] [id number] Jun, [facility] [address] [id number] [address] [place] [address] May, [facility] [address] [facility] [id number] [address] [place] [id number] May, [facility] [address] [id number] [address] [place] [address] [place] [address] Apr, [facility] [address] [id number] [address] [place] [address], [place] [address] Apr, [facility] [address] [id number] [address] [place] [address], [place] [address] Apr, [facility] [address] [id number] [address] [place] [address], [place] [address] March, [facility] [place] [address] [id number] [address] [place] [address], [place] [address] March, [facility] [place] [address] [id number] [address] [place] [address], [place] [address] March, [facility] [place] [address] [id number] [address] [place] [address], [place] [address] March, [facility] [address] [id number] [address] [place] [address], [place] [address] March, Sialadenitis 527.2 [facility] [address] [id number] [address] [place] [address], [place] [address] Feb, [facility] [place] [address] [id number] [address] [place] [address], [place] [address] Feb, [facility] [address] [id number] [address] [place] [address], [place] [address] Feb, [facility] [place] [address] [id number] [address] [place] [address], [place] [address] 14 Feb, 2015 [facility] [address] [id number] [address] [place] [address], [place] [address] Feb, [facility] [place] [address] [id number] [address] [place] [address], [place] [address] Jan, [facility] [place] [address] [id number] [address] [place] [address], [place] [address] Jan, [facility] [place] [address] [id number] [address] [place] [address], [place] [address] Jan, [facility] [address] [id number] [address] [place] [address], [place] [address] Jan, [facility] [address] [id number] [address] [place] [address], [place] [address] Jan, [facility] [address] [id number] [address] [place] [address], [place] [address] Jan, [facility] [address] [id number] [address] [place] [address], [place] [address] Dec, [facility] [address] [id number] [address] [place] [address], [place] [address] Dec, [facility] [address] [id number] [address] [place] [address], [place] [address] Dec, [facility] [address] [id number] [address] [place] [address], [place] [address] Dec, [facility] [address] [id number] [address] [place] [address], [place] [address] Dec, [facility] [address] [id number] [address] [place] [address], [place] [address] Dec, [facility] [address] [id number] [address] [place] [address], [place] [address] Nov, [facility] [address] [id number] [address] [place] [address], [place] [address] Nov, [facility] [address] [id number] [address] [place] [address], [place] [address] Nov, [facility] [address] [id number] [address] [place] [address], [place] [address] Nov, [facility] [address] [id number] [address] [place] [address], [place] [address] Nov, [facility] [address] [id number] [address] [place] [address], [place] [address] Nov, [facility] [address] [id number] [address] [place] [address], [place] [address] Nov, [facility] [address] [id number] [address] [place] [address], [place] [address] Nov, [facility] [address] [id number] [address] [place] [address], [place] [address] Nov, [facility] [address] [id number] [address] [place] [address], [place] [address] Nov, [facility] [address] [id number] [address] [place] [address], [place] [address] Nov, [facility] [address] [id number] [address] [place] [address], [place] [address] Nov, [facility] [address] [id number] [address] [place] [address], [place] [address] Nov, [facility] [address] [id number] [address] [place] [address], [place] [address] Nov, [facility] [address] [id number] [address] [place] [address], [place] [address] Oct, [facility] [address] [id number] [address] [place] [address], [place] [address] Oct, [facility] [address] [id number] [address] [place] [address], [place] [address] 19 Oct, 2014 [facility] [address] [id number] [address] [place] [address], [place] [address] 18 Oct, 2014 [facility] [address] [id number] [address] [place] [address], [place] [address] 18 Oct, 2014 [facility] [address] [id number] [address] [place] [address], [place] [address] 17 Oct, 2014 [facility] [address] [id number] [address] [place] [address], [place] [address] 17 Oct, 2014 [facility] [address] [id number] [address] [place] [address], [place] [address] Oct, [facility] [address] [id number] [address] [place] [address], [place] [address] Oct, [facility] [address] [id number] [address] [place] [address], [place] [address] Sep, [facility] [address] [id number] [address] [place] [address], [place] [address] Sep, [facility] [address] [id number] [address] [place] [address], [place] [address] Sep, [facility] [address] [id number] [address] [place] [address], [place] [address] Sep, [facility] [address] [id number] [address] [place] [address], [place] [address] Sep, [facility] [address] [id number] [address] [place] [address], [place] [address] Sep, [facility] [address] [id number] [address] [place] [address], [place] [address] Sep, [facility] [address] [id number] [address] [place] [address], [place] [address] Sep, [facility] [address] [id number] [address] [place] [address], [place] [address] Sep, [facility] [address] [id number] [address] [place] [address], [place] [address] Sep, [facility] [address] [id number] [address] [place] [address], [place] [address] Sep, [facility] [address] [id number] [address] [place] [address], [place] [address] Sep, [facility] [address] [id number] [address] [place] [address], [place] [address] Aug, [facility] [address] [id number] [address] [place] [address], [place] [address] Aug, [facility] [address] [id number] [address] [place] [address], [place] [address] 29 Aug, 2014 [facility] [address] [id number] [address] [place] [address], [place] [address] 29 Aug, 2014 [facility] [address] [id number] [address] [place] [address], [place] [address] 28 Aug, 2014 [facility] [address] [id number] [address] [place] [address], [place] [address] 28 Aug, 2014 [facility] [address] [id number] [address] [place] [address], [place] [address] Aug, [facility] [address] [id number] [address] [place] [address], [place] [address] 17 Aug, 2014 [facility] [address] [id number] [address] [place] [address], [place] [address] 30 Jul, 2013 [facility] [address] [id number] [address] [place] [address], [place] [address] 30 Jul, 2013 [facility] [address] [id number] [address] [place] [address], [place] [address] 30 Jul, 2013 [facility] [address] [id number] [address] [place] [address], [place] [address] 30 Jul, 2013 [facility] [address] [id number] [address] [place] [address], [place] [address] 25 Sep, 2013 [facility] [address] [id number] [address] [place] [address], [place] [address] 25 Sep, 2013 [facility] [address] [id number] [address] [place] [address], [place] [address] 15 Sep, 2013 [facility] [address] [id number] [address] [place] [address], [place] [address] 15 Sep, 2013 [facility] [address] [id number] [address] [place] [address], [place] [address] 11 Jul, 2013 [facility] [address] [id number] [address] [place] [address], [place] [address] 11 Jul, 2013 [facility] [address] [id number] [facility] [place] [address] Jun, [facility] [address] [id number] [facility] [place] [address] Jun, [facility] [address] [id number] [facility] [place] [address] Jun, [facility] [address] [id number] [address] [place] [address], [place] [address] Jun, [facility] [address] [id number] [address] [place] [address], [place] [address] Jun, [facility] [address] [id number] [address] [place] [address], [place] [address] Jun, [facility] [address] [id number] [address] [place] [address], [place] [address] Jun, [facility] [address] [id number] [address] [place] [address], [place] [address] Jun, [facility] [address] [id number] [address] [place] [address], [place] [address] Jun, [facility] [address] [id number] [address] [place] [address], [place] [address] Jun, [facility] [address] [id number] [address] [place] [address], [place] [address] Jun, [facility] [address] [id number] [address] [place] [address], [place] [address] Jun, [facility] [address] [id number] [address] [place] [address], [place] [address] Jun, [facility] [address] [id number] [address] [place] [address], [place] [address] Jun, [facility] [address] [id number] [address] [place] [address], [place] [address] Jun, [facility] [address] [id number] [address] [place] [address], [place] [address] Jun, [facility] [address] [id number] [facility] [place] [address] Jun, [facility] [address] [id number] [facility] [place] [address] Jun, [facility] [address] [id number] [facility] [place] [address] Jun, [facility] [address] [id number] [address] [place] [address], [place] [address] Jun, [facility] [address] [id number] [address] [place] [address], [place] [address] Jun, [facility] [address] [id number] [address] [place] [address], [place] [address] Jun, [facility] [address] [id number] [address] [place] [address], [place] [address] May, [facility] [address] [id number] [address] [place] [address], [place] [address] May, [facility] [address] [id number] [address] [place] [address], [place] [address] May, [facility] [address] [id number] [address] [place] [address], [place] [address] May, [facility] [address] [id number] [address] [place] [address], [place] [address] May, [facility] [address] [id number] [address] [place] [address], [place] [address] May, [facility] [address] [id number] [address] [place] [address], [place] [address] May, [facility] [address] [id number] [address] [place] [address], [place] [address] May, [facility] [address] [id number] [address] [place] [address], [place] [address] May, [facility] [address] [id number] [address] [place] [address], [place] [address] May, [facility] [address] [id number] [facility] [place] [address] May, [facility] [address] [id number] [address] [place] [address], [place] [address] May, [facility] [address] [id number] [address] [place] [address], [place] [address] May, [facility] [address] [id number] [address] [place] [address], [place] [address] Apr, [facility] [address] [id number] [address] [place] [address], [place] [address] Apr, [facility] [address] [id number] [address] [place] [address], [place] [address] Apr, [facility] [address] [id number] [address] [place] [address], [place] [address] Apr, [facility] [address] [id number] [address] [place] [address], [place] [address] Apr, [facility] [address] [id number] [address] [place] [address], [place] [address] Apr, [facility] [address] [id number] [address] [place] [address], [place] [address] Apr, [facility] [address] [id number] [address] [place] [address], [place] [address] Apr, [facility] [address] [id number] [address] [place] [address], [place] [address] Apr, [facility] [address] [id number] [address] [place] [address], [place] [address] March, [facility] [address] [id number] [address] [place] [address], [place] [address] March, [facility] [address] [id number] [address] [place] [address], [place] [address] March, [facility] [address] [id number] [facility] [place] [address] March, [facility] [address] [id number] [address] [place] [address], [place] [address] March, [facility] [address] [id number] [address] [place] [address], [place] [address] March, [facility] [address] [id number] [address] [place] [address], [place] [address] March, [facility] [address] [id number] [address] [place] [address], [place] [address] March, [facility] [address] [id number] [address] [place] [address], [place] [address] March, [facility] [address] [id number] [address] [place] [address], [place] [address] March, [facility] [address] [id number] [address] [place] [address], [place] [address] March, [facility] [address] [id number] [address] [place] [address], [place] [address] March, [facility] [address] [id number] [address] [place] [address], [place] [address] March, [facility] [address] [id number] [address] [place] [address], [place] [address] March, [facility] [address] [id number] [address] [place] [address], [place] [address] March, [facility] [address] [id number] [address] [place] [address], [place] [address] March, [facility] [address] [id number] [address] [place] [address], [place] [address] March, [facility] [address] [id number] [address] [place] [address], [place] [address] March, [facility] [address] [id number] [address] [place] [address], [place] [address] March, [facility] [address] [id number] [facility] [place] [address] March, [facility] [address] [id number] [address] [place] [address], [place] [address] Feb, [facility] [address] [id number] [address] [place] [address], [place] [address] Feb, [facility] [address] [id number] [address] [place] [address], [place] [address] Feb, [facility] [address] [id number] [address] [place] [address], [place] [address] Feb, [facility] [address] [id number] [address] [place] [address], [place] [address] Feb, [facility] [address] [id number] [address] [place] [address], [place] [address] Feb, [facility] [address] [id number] [address] [place] [address], [place] [address] Feb, [facility] [address] [id number] [address] [place] [address], [place] [address] Feb, [facility] [address] [id number] [address] [place] [address], [place] [address] Jan, [facility] [address] [id number] [address] [place] [address], [place] [address] Jan, [facility] [address] [id number] [address] [place] [address], [place] [address] 24 Jan, 2014 [facility] [address] [id number] [address] [place] [address], [place] [address] 24 Jan, 2014 [facility] [address] [id number] [address] [place] [address], [place] [address] Jan, [facility] [address] [id number] [address] [place] [address], [place] [address] Jan, [facility] [address] [id number] [facility] [place] [address] Jan, [facility] [address] [id number] [address] [place] [address], [place] [address] Jan, [facility] [address] [id number] [address] [place] [address], [place] [address] Jan, [facility] [address] [id number] [address] [place] [address], [place] [address] Jan, [facility] [address] [id number] [address] [place] [address], [place] [address] Dec, [facility] [address] [id number] [address] [place] [address], [place] [address] Dec, [facility] [address] [id number] [address] [place] [address], [place] [address] Dec, [facility] [address] [id number] [address] [place] [address], [place] [address] Dec, [facility] [address] [id number] [address] [place] [address], [place] [address] Dec, [facility] [address] [id number] [address] [place] [address], [place] [address] Dec, [facility] [address] [id number] [address] [place] [address], [place] [address] Dec, [facility] [address] [id number] [address] [place] [address], [place] [address] Dec, [facility] [address] [id number] [address] [place] [address], [place] [address] Nov, [facility] [address] [id number] [address] [place] [address], [place] [address] Nov, [facility] [address] [id number] [address] [place] [address], [place] [address] Nov, [facility] [address] [id number] [address] [place] [address], [place] [address] Nov, [facility] [address] [id number] [address] [place] [address], [place] [address] Nov, [facility] [address] [id number] [address] [place] [address], [place] [address] Nov, [facility] [address] [id number] [address] [place] [address], [place] [address] Nov, [facility] [address] [id number] [address] [place] [address], [place] [address] Nov, [facility] [address] [id number] [address] [place] [address], [place] [address] Nov, [facility] [address] [id number] [address] [place] [address], [place] [address] Nov, [facility] [address] [id number] [address] [place] [address], [place] [address] Nov, [facility] [address] [id number] [address] [place] [address], [place] [address] Nov, [facility] [address] [id number] [address] [place] [address], [place] [address] Nov, [facility] [address] [id number] [address] [place] [address], [place] [address] Oct, [facility] [address] [id number] [address] [place] [address], [place] [address] Oct, [facility] [address] [id number] [address] [place] [address], [place] [address] Oct, [facility] [address] [id number] [address] [place] [address], [place] [address] Oct, [facility] [address] [id number] [address] [place] [address], [place] [address] Oct, [facility] [address] [id number] [address] [place] [address], [place] [address] Oct, [facility] [address] [id number] [address] [place] [address], [place] [address] 18 Oct, 2012 [facility] [address] [id number] [address] [place] [address], [place] [address] 18 Oct, 2013 [facility] [address] [id number] [address] [place] [address], [place] [address] 17 Oct, 2013 [facility] [address] [id number] [address] [place] [address], [place] [address] 17 Oct, 2013 [facility] [address] [id number] [address] [place] [address], [place] [address] 03 Oct, 2013 [facility] [address] [id number] [address] [place] [address], [place] [address] 03 Oct, 2013 [facility] [address] [id number] [address] [place] [address], [place] [address] 02 Oct, 2013 [facility] [address] [id number] [address] [place] [address], [place] [address] 02 Oct, 2013 [facility] [address] [id number] [address] [place] [address], [place] [address] 14 Sep, 2013 [facility] [address] [id number] [address] [place] [address], [place] [address] 14 Sep, 2013 [facility] [address] [id number] [address] [place] [address], [place] [address] 05 Sep, 2013 [facility] [address] [id number] [address] [place] [address], [place] [address] 05 Sep, 2013 [facility] [address] [id number] [address] [place] [address], [place] [address] Sep, [facility] [address] [id number] [address] [place] [address], [place] [address] Sep, [facility] [address] [id number] [address] [place] [address], [place] [address] Sep, [facility] [address] [id number] [address] [place] [address], [place] [address] Sep, [facility] [address] [id number] [address] [place] [address], [place] [address] Sep, [facility] [address] [id number] [address] [place] [address], [place] [address] Sep, [facility] [address] [id number] [address] [place] [address], [place] [address] Aug, [facility] [address] [id number] [address] [place] [address], [place] [address] Aug, [facility] [address] [id number] [address] [place] [address], [place] [address] Aug, [facility] [address] [id number] [address] [place] [address], [place] [address] Aug, [facility] [address] [id number] [address] [place] [address], [place] [address] Aug, [facility] [address] [id number] [address] [place] [address], [place] [address] Aug, [facility] [address] [id number] [address] [place] [address], [place] [address] Aug, [facility] [address] [id number] [address] [place] [address] Aug, [facility] [address] [id number] [address] [place] [address] Aug, [facility] [address] [id number] [address] [place] [address] Aug, [facility] [address] [id number] [address] [place] [address], [place] [address] Aug, [facility] [address] [id number] [address] [place] [address], [place] [address] Aug, [facility] [address] [id number] [address] [place] [address] Aug, [facility] [address] [id number] [address] [place] [address] 18 Aug, 2013 [facility] [address] [id number] [address] [place] [address], [place] [address] 17 Aug, 2013 [facility] [address] [id number] [address] [place] [address], [place] [address] 14 Aug, 2013 [facility] [address] [id number] [address] [place] [address], [place] [address] 14 Aug, 2013 [facility] [address] [id number] [address] [place] [address], [place] [address] Aug, [facility] [address] [id number] [address] [place] [address], [place] [address] 20 Jul, 2013 [facility] [address] [id number] [address] [place] [address], [place] [address] 19 Jul, 2013 [facility] [address] [id number] [address] [place] [address], [place] [address] 18 Jul, 2013 [facility] [address] [id number] [address] [place] [address], [place] [address] 11 Jul, 2013 [facility] [address] [id number] [address] [place] [address], [place] [address] Jul, [facility] [address] [id number] [address] [place] [address], [place] [address] Jun, [facility] [address] [id number] [address] [place] [address], [place] [address] Jun, [facility] [address] [id number] [address] [place] [address], [place] [address] Jun, [facility] [address] [id number] [address] [place] [address], [place] [address] 15 Jun, 2013 [facility] [address] [id number] [address] [place] [address], [place] [address] 14 Jun, 2013 [facility] [address] [id number] [address] [place] [address], [place] [address] Jun, [facility] [address] [id number] [address] [place] [address], [place] [address] Jun, [facility] [address] [id number] [address] [place] [address], [place] [address] Jun, [facility] [address] [id number] [address] [place] [address], [place] [address] Jun, [facility] [address] [id number] [address] [place] [address], [place] [address] Jun, [facility] [address] [id number] [address] [place] [address], [place] [address] May, [facility] [address] [id number] [address] [place] [address], [place] [address] May, [facility] [address] [id number] [address] [place] [address], [place] [address] May, [facility] [address] [id number] [address] [place] [address], [place] [address] May, [facility] [address] [id number] [address] [place] [address], [place] [address] May, [facility] [address] [id number] [address] [place] [address], [place] [address] May, [facility] [address] [id number] [address] [place] [address], [place] [address] May, [facility] [address] [id number] [address] [place] [address], [place] [address] May, [facility] [address] [id number] [address] [place] [address], [place] [address] May, [facility] [address] [id number] [address] [place] [address], [place] [address] Apr, [facility] [address] [id number] [address] [place] [address], [place] [address] Apr, [facility] [address] [id number] [address] [place] [address], [place] [address] Apr, [facility] [address] [id number] [address] [place] [address], [place] [address] Apr, [facility] [address] [id number] [address] [place] [address], [place] [address] Apr, [facility] [address] [id number] [address] [place] [address], [place] [address] Apr, [facility] [address] [id number] [address] [place] [address], [place] [address] Apr, [facility] [address] [id number] [address] [place] [address], [place] [address] March, [facility] [address] [id number] [address] [place] [address], [place] [address] Feb, [facility] [address] [id number] [address] [place] [address], [place] [address] Feb, [facility] [address] [id number] [address] [place] [address], [place] [address] Feb, [facility] [address] [id number] [address] [place] [address], [place] [address] Jan, [facility] [address] [id number] [address] [place] [address], [place] [address] Jan, [facility] [address] [id number] [address] [place] [address], [place] [address] Jan, [facility] [address] [id number] [address] [place] [address], [place] [address] 14 Jan, 2013 [facility] [address] [id number] [address] [place] [address], [place] [address] 12 Jan, 2013 [facility] [address] [id number] [address] [place] [address], [place] [address] 08 Jan, 2013 [facility] [address] [id number] [address] [place] [address], [place] [address] 07 Jan, 2013 [facility] [address] [id number] [address] [place] [address], [place] [address] 04 Jan, 2013 [facility] [address] [id number] [address] [place] [address], [place] [address] 28 Dec, 2012 [facility] [address] [id number] [address] [place] [address], [place] [address] 25 Dec, 2012 [facility] [address] [id number] [address] [place] [address], [place] [address] 13 Dec, 2012 [facility] [address] [id number] [address] [place] [address], [place] [address] 11 Dec, 2012 [facility] [address] [id number] [address] [place] [address], [place] [address] 07 Dec, 2012 [facility] [address] [id number] [address] [place] [address], [place] [address] 06 Dec, 2012 [facility] [address] [id number] [address] [place] [address], [place] [address] 05 Dec, 2012 [facility] [address] [id number] [address] [place] [address], [place] [address] Nov, [facility] [address] [id number] [address] [place] [address], [place] [address] 24 Nov, 2012 [facility] [address] [id number] [address] [place] [address], [place] [address] 18 Nov, 2012 [facility] [address] [id number] [address] [place] [address], [place] [address] 15 Nov, 2012 [facility] [address] [id number] [address] [place] [address], [place] [address] Nov, [facility] [address] [id number] [address] [place] [address], [place] [address] Nov, [facility] [address] [id number] [address] [place] [address], [place] [address] 02 Nov, 2012 [facility] [address] [id number] [address] [place] [address], [place] [address] Oct, [facility] [address] [id number] [address] [place] [address], [place] [address] Oct, [facility] [address] [id number] [address] [place] [address], [place] [address] Oct, [facility] [address] [id number] [address] [place] [address], [place] [address] Oct, [facility] [address] [id number] [address] [place] [address], [place] [address] Oct, [facility] [address] [id number] [address] [place] [address], [place] [address] Oct, [facility] [address] [id number] [address] [place] [address], [place] [address] Oct, [facility] [address] [id number] [address] [place] [address], [place] [address] Oct, [facility] [address] [id number] [address] [place] [address], [place] [address] Oct, [facility] [address] [id number] [address] [place] [address], [place] [address] Oct, [facility] [address] [id number] [address] [place] [address], [place] [address] Oct, [facility] [address] [id number] [address] [place] [address], [place] [address] Oct, [facility] [address] [id number] [address] [place] [address], [place] [address] Sep, [facility] [address] [id number] [address] [place] [address], [place] [address] Sep, [facility] [address] [id number] [address] [place] [address], [place] [address] Sep, [facility] [address] [id number] [address] [place] [address], [place] [address] Sep, [facility] [address] [id number] [address] [place] [address] Sep, [facility] [address] [id number] [address] [place] [address], [place] [address] Sep, [facility] [address] [id number] [address] [place] [address] Sep, [facility] [address] [id number] [address] [place] [address] Sep, [facility] [address] [id number] [address] [place] [address] Sep, [facility] [address] [id number] [address] [place] [address] Sep, [facility] [address] [id number] [address] [place] [address] Sep, [facility] [address] [id number] [address] [place] [address] Aug, [facility] [address] [id number] [address] [place] [address] Aug, [facility] [address] [id number] [address] [place] [id number] Aug, [facility] [address] [id number] [address] [place] [id number] Aug, [facility] [address] [id number] [address] [place] [id number] Aug, [facility] [address] [id number] [address] [place] [address] Aug, [facility] [address] [id number] [address] [place] [id number] Aug, [facility] [address] [id number] [address] [place] [id number] Aug, [facility] [address] [id number] [address] [place] [id number] Aug, [facility] [address] [id number] [facility] [place] [address] Aug, [facility] [address] [id number] [facility] [place] [address] 22 Jul, 2012 [facility] [address] [id number] [address] [place] [address], [place] [address] Jul, [facility] [address] [id number] [address] [place] [address], [place] [address] Jul, [facility] [address] [id number] [address] [place] [address], [place] [address] Jul, [facility] [address] [id number] [address] [place] [address], [place] [address] Jun, [facility] [address] [id number] [address] [place] [address], [place] [address] Jun, [facility] [address] [id number] [address] [place] [address], [place] [address] Jun, [facility] [address] [id number] [address] [place] [address], [place] [address] Jun, [facility] [address] [id number] [address] [place] [address], [place] [address] Jun, [facility] [address] [id number] [address] [place] [address], [place] [address] Jun, [facility] [address] [id number] [address] [place] [address], [place] [address] Jun, [facility] [address] [id number] [address] [place] [address], [place] [address] May, [facility] [address] [id number] [address] [place] [address], [place] [address] May, [facility] [address] [id number] [address] [place] [address], [place] [address] May, [facility] [address] [id number] [address] [place] [address], [place] [address] May, [facility] [address] [id number] [address] [place] [address], [place] [address] May, [facility] [address] [id number] [address] [place] [address], [place] [address] Apr, [facility] [address] [id number] [address] [place] [address], [place] [address] Apr, [facility] [address] [id number] [address] [place] [address], [place] [address] Apr, [facility] [address] [id number] [address] [place] [address], [place] [address] Apr, [facility] [address] [id number] [address] [place] [address], [place] [address] Apr, [facility] [address] [id number] [address] [place] [address], [place] [address] March, [facility] [address] [id number] [address] [place] [address], [place] [address] March, [facility] [address] [id number] [address] [place] [address], [place] [address] March, [facility] [address] [id number] [address] [place] [address], [place] [address] March, [facility] [address] [id number] [address] [place] [address], [place] [address] March, [facility] [address] [id number] [address] [place] [address], [place] [address] March, [facility] [address] [id number] [address] [place] [address], [place] [address] March, [facility] [address] [id number] [address] [place] [address], [place] [address] March, [facility] [address] [id number] [address] [place] [address], [place] [address] March, [facility] [address] [id number] [address] [place] [address], [place] [address] March, [facility] [address] [id number] [address] [place] [address], [place] [address] 30 Feb, 2012 [facility] [address] [id number] [address] [place] [address], [place] [address] Feb, [facility] [address] [id number] [address] [place] [address], [place] [address] Feb, [facility] [address] [id number] [address] [place] [address], [place] [address] Feb, [facility] [address] [id number] [address] [place] [address], [place] [address] Feb, [facility] [address] [id number] [address] [place] [address], [place] [address] Feb, [facility] [address] [id number] [address] [place] [address], [place] [address] Feb, [facility] [address] [id number] [address] [place] [address], [place] [address] Feb, [facility] [address] [id number] [address] [place] [address], [place] [address] Feb, [facility] [address] [id number] [address] [place] [address], [place] [address] Jan, [facility] [address] [id number] [address] [place] [address], [place] [address] Jan, [facility] [address] [id number] [address] [place] [address], [place] [id number] 05 Jan, 2012 [facility] [address] [id number] [address] [place] [address], [place] [id number] Jan, [facility] [address] [id number] [address] [place] [address], [place] [address] Dec, [facility] [address] [id number] [address] [place] [address], [place] [address] Dec, [facility] [address] [id number] [address] [place] [id number] Nov, [facility] [address] [id number] [address] [place] [id number] Nov, [facility] [address] [id number] [address] [place] [id number] Nov, [facility] [address] [id number] [address] [place] [id number] Nov, [facility] [address] [id number] [address] [place] [id number] Nov, [facility] [address] [id number] [address] [place] [id number] Oct, [facility] [address] [id number] [address] [place] [id number] Oct, [facility] [address] [id number] [address] [place] [id number] Oct, [facility] [address] [id number] [address] [place] [id number] Oct, [facility] [address] [id number] [address] [place] [phone] Oct, [facility] [address] [id number] [address] [place] [id number] Oct, [facility] [address] [id number] [address] [place] [id number] Oct, [facility] [address] [id number] [address] [place] [id number] Oct, [facility] [address] [id number] [address] [place] [id number] Sep, IMMUNIZATIONS No Known Immunizations SOCIAL HISTORY [...] and fever, discharged 11/27/2017 11/26/2017 Hospitalization History [facility]- Went Unrepsonsive, Hit head 2017 Hospitalization History [facility] [place]- Back Pain 05/05/ 8
--- OUTSIDE RECORDS SUMMARY | 2020-06-18 15:35 | XMS REPORT ---
Author Author Sanjuanita Abdul Doctor Organization [facility] Address Unknown Phone Unavailable Care Team Providers Care Senior Enlisted Advisor Name Role Phone Migration, Doctor Unavailable Unavailable PROBLEMS Type Condition ICD9-CM Code MAA63-FB Code Onset Dates Condition S tatus SNOMED Code Problem Hypertension I10 Active 9794791 3 Problem Hyperlipidemia E78.5 Active 03505 004 Problem Coronary artery disease I25.10 Active 09178184 Problem Low back pain M54.5 Active 202842 009 Problem Other chronic pain G89.29 Active 8 7438958 Problem Ventral hernia without obstruction or gangrene K43 .9 Active 323273328 Problem Type 2 diabetes mellitus wit hout complication, without long-term current use of insulin E11.9 Active 310954268 Problem Anxiety F41.9 Active 44359661 Problem Peripheral vascular disease I73.9 Ac tive 600742401 Problem Insomnia G47.00 Active 309069754 Problem Microcytic anemia D50.9 Active 23 4477781 Problem Pharyngeal dysphagia R13.13 Active 43879067609970 Problem Other iron deficiency anemia D50.8 A ctive 51172760 Problem Reactive depression F32.9 Active 11605523 Problem Paroxysmal atrial fibrillation I48.0 Active 693879453 Problem Postmenopausal atrophic vaginitis N95.2 Active 36521059 Problem Encounter for suprapubic catheter care Z43.5 Active 443663619 Problem Neurogenic bladder N31.9 Active 3 [id number] ALLERGIES No Information ENCOUNTERS Encounter Location Date Diagnosis [place] [address] [address] [facility] [id number] [address] [place] [address] 13 May, 2020 Strain of right shoulder, scherer bsequent encounter S46.911D and Anxiety F41.9 [place] [address] [address] [facility] [id number] [address] [place] [address] 17 Apr, 2020 Anxiety F41.9 and Strain of right shoulder, subsequent encounter S46.911D [place] [address] [address] [facility] [id number] [address] [place] [address] Apr, [facility] [address] [id number] [address] [place] [address] March, [facility] [address] [id number] [address] [place], [place] [address] March, Anxiety F41.9 and Strain of right shoulder, subsequent encounter S46.911D [facility] [address] [id number] [address] [place] [address] Feb, Anxiety F41.9 and Strain of right shoulder, subsequent encounter S46.911D [place] [address] [id number] [address] [place] [address] Jan, Anxiety F41.9 and Strain of right shoulder, subsequent encounter S46.911D [place] [address] [id number] [address] [place] [address] Jan, Via [facility] [address] [place] [id number] Jan, Neurogenic bladder N31.9 [place] [address] [id number] [address] [place] [address] Dec, [place] [address] [id number] [address] [place] [address] Dec, [place] [address] [id number] [address] [place] [address] Dec, Anxiety F41.9 and Strain of right shoulder, subsequent encounter S46.911D [place] [address] [id number] [address] [place] [address] 10 Dec, 2019 Other iron deficiency anemia D50.8 [place] [address] [id number] [address] [place] [address] Dec, Via [facility] [address] [place] [id number] Dec, Encounter for suprapubic catheter care Z 43.5 and Microcytic anemia D50.9 [facility] [address] [id number] [address] [place] [address] Dec, [facility] [address] [id number] [address] [place] [address] Nov, Anxiety F41.9 and Strain of right shoulder, subsequent encounter S46.911D [place] [address] [id number] [address] [place] [address] Nov, Hypertension I10 Via [facility] [employer] [address] [place] [id number] Nov, Pneumonia of both lungs due to infectiou s organism, unspecified part of lung J18.9 and Suprapubic catheter Z93.59 [place] [address] [id number] [address] [place] [address] Nov, Hypertension I10 and Reactiv e depression F32.9 [place] [address] [id number] [address] [place] [address] Oct, Strain of right shoulder, scherer bsequent encounter S46.911D and Anxiety F41.9 [place] [address] [id number] [address] [place] [address] Oct, Via [employer] [address] [place] [id number] Oct, Suprapubic catheter Z93.59 and Candidias is, intertriginous B37.2 [place] [address] [id number] [address] [place] [address] Oct, Suprapubic catheter Z93.59 [place] [address] [id number] [address] [place] [address] Oct, Anxiety F41.9 and Strain of right shoulder, subsequent encounter S46.911D [place] [address] [id number] [address] [place] [address] Sep, [place] [address] [id number] [address] [place] [address] Sep, [facility] [address] [id number] [address] [place] [address] Sep, Via [facility] [address] [place] [id number] Sep, Suprapubic catheter Z93.59 [facility] [address] [id number] [address] [place] [address] Sep, Anxiety F41.9 and Strain of right shoulder, subsequent encounter S46.911D [facility] [address] [id number] [address] [place] [address] Aug, [facility] [address] [id number] [address] [place] [address] Aug, [facility] [address] [id number] [address] [place] [address] Aug, Anxiety F41.9 and Strain of right shoulder, subsequent encounter S46.911D Via [facility] [address] [place] [id number] Aug, Suprapubic catheter Z93.59 [facility] [address] [id number] [address] [place] [address] Jul, Strain of right shoulder, scherer bsequent encounter S46.911D and Anxiety F41.9 [facility] [address] [id number] [address] [place] [address] Jul, Anxiety F41.9 [facility] [address] [id number] [address] [place] [address] Jun, [facility] [address] [id number] [address] [place] [address] Jun, [facility] [address] [id number] [address] [place] [address] Jun, [facility] [address] [id number] [address] [place] [address] Jun, Strain of right shoulder, scherer bsequent encounter S46.911D [place] [address] [id number] [address] [place] [address] Jun, Strain of right shoulder, scherer bsequent encounter S46.911D [place] [address] [id number] [address] [place] [address] Jun, Anxiety F41.9 Via [facility] [address] [place] [id number] Jun, Neurogenic bladder N31.9 and Anxiety F41 .9 Via [facility] [address] [place] [id number] May, Anxiety F41.9 [place] [address] [id number] [address] [place] [address] May, Dysuria R30.0 [place] [address] [id number] [address] [place] [address] May, Strain of right shoulder, scherer bsequent encounter S46.911D and Anxiety F41.9 [place] [address] [id number] [address] [place] [address] Apr, Via [facility] [address] [place] [id number] Apr, Strain of right shoulder, subsequent enc ounter S46.911D [place] [address] [id number] [address] [place] [address] 14 Apr, 2019 Strain of right shoulder, scherer bsequent encounter S46.911D and Anxiety F41.9 Via [facility] [address] [place] [id number] 13 Apr, 2019 Type 2 diabetes mellitus without complic ation, without long-term current use of insulin E11.9 and Neurogenic bladder N31.9 Via [facility] [address] [place] [id number] Apr, Strain of right shoulder, subsequent enc ounter S46.911D ; History of GI bleed Z87.19 ; Neurogenic bladder N31.9 and Reactive depression F32.9 [place] [address] [id number] [address] [place] [address] 10 Apr, 2019 Acute pain of left shoulder M25.512 [facility] [address] [id number] [address] [place] [address] 07 Apr, 2019 [facility] [address] [id number] [address] [place] [address] Apr, Anxiety F41.9 and Other psychological assistant 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 Via [employer] [address] [place] [id number] March, Gastrointestinal hemorrhage associated w ith acute gastritis K29.01 [facility] [address] [id number] [address] [place] [address] March, Via [employer] [address] [place] [id number] March, Bronchitis J40 [facility] [address] [id number] [address] [place] [address] March, Cough R05 [facility] [address] [id number] [address] [place] [address] March, Other chronic pain G89.29 [facility] [address] [id number] [address] [place] [address] March, Anxiety F41.9 [facility] [address] [id number] [address] [place] [address] March, [facility] [address] [id number] [address] [place] [address] Feb, Other chronic pain G89.29 [facility] [address] [id number] [address] [place] [address] Feb, Anxiety F41.9 [facility] [address] [id number] [address] [place] [address] Feb, Other chronic pain G89.29 Via [employer] [address] [place] [id number] Feb, Neurogenic bladder N31.9 and Suprapubic catheter Z93.59 [facility] [address] [id number] [address] [place] [address] Jan, Anxiety F41.9 [facility] [address] [id number] [address] [place] [address] Dec, Anxiety F41.9 [facility] [address] [id number] [address] [place] [address] Dec, Other chronic pain G89.29 an d Anxiety F41.9 [facility] [address] [id number] [address] [place] [address] Dec, Via [employer] [address] [place] [id number] Dec, Neurogenic bladder N31.9 and Suprapubic catheter Z93.59 [facility] [address] [id number] [address] [place] [address] Nov, Other chronic pain G89.29 an d Anxiety F41.9 [facility] [address] [id number] [address] [place] [address] Nov, Via [employer] [address] [place] [id number] Nov, Suprapubic catheter Z93.59 [facility] [address] [id number] [address] [place] [address] Oct, Other chronic pain G89.29 an d Anxiety F41.9 [facility] [address] [id number] [address] [place] [address] Oct, [facility] [address] [id number] [address] [place] [address] Oct, Suprapubic catheter Z93.59 [facility] [address] [id number] [address] [place] [address] Oct, Via [employer] [address] [place] [id number] Oct, [facility] [address] [id number] [address] [place] [address] Oct, Anxiety F41.9 [facility] [address] [id number] [address] [place] [address] Oct, Anxiety F41.9 Via [facility] [address] [place] [id number] Oct, Other chronic pain G89.29 [facility] [address] [id number] [address] [place] [address] Sep, Other chronic pain G89.29 Via [facility] [employer] [address] [place] [id number] Sep, Suprapubic catheter Z93.59 and Cervicalg ia M54.2 [facility] [address] [id number] [address] [place] [address] Sep, [facility] [address] [id number] [address] [place] [address] Sep, [facility] [address] [id number] [address] [place] [address] Sep, Via [facility] [address] [place] [id number] Aug, Cystitis N30.90 [facility] [address] [id number] [address] [place] [address] Aug, [facility] [address] [id number] [address] [place] [address] Aug, Other chronic pain G89.29 [facility] [address] [id number] [address] [place] [address] Aug, Via [facility] [employer] [address] [place] [id number] Aug, Encounter for suprapubic catheter care Z 43.5 [facility] [address] [id number] [address] [place] [address] Jul, Via [employer] [address] [place] [id number] Jul, [facility] [address] [id number] [address] [place] [address] Jul, Other chronic pain G89.29 [facility] [address] [id number] [address] [place] [address] Jul, [facility] [address] [id number] [address] [place] [address] Jul, Via [employer] [address] [place] [id number] Jun, Postmenopausal atrophic vaginitis N95.2 [facility] [address] [id number] [address] [place] [address] Jun, Other chronic pain G89.29 [facility] [address] [id number] [address] [place] [address] Jun, Via [employer] [address] [place] [id number] May, Anxiety F41.9 ; Type 2 diabetes mellitus without complication, without long-term current use of insulin E11.9 ; Hypertension I10 ; Low back pain M54.5 ; Paroxysmal atrial fibrillation I48.0 and 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 [facility] [address] [id number] [address] [place] [address] May, Other chronic pain G89.29 Via [employer] [address] [place] [id number] May, Low back pain M54.5 [facility] [address] [id number] [address] [place] [address] May, [facility] [address] [id number] [address] [place] [address] Apr, Other chronic pain G89.29 [facility] [address] [id number] [address] [place] [address] Apr, [facility] [address] [id number] [address] [place] [address] Apr, Via [employer] [address] [place] [id number] Apr, Closed compression fracture of L3 lumbar vertebra with routine healing, subsequent encounter S32.030D [facility] [employer] [address] [place] [id number] Apr, Low back pain M54.5 [facility] [employer] [address] [place] [id number] Apr, Coccydynia M53.3 [facility] [address] [id number] [address] [place] [address] March, [facility] [address] [id number] [address] [place] [address] March, Other chronic pain G89.29 [facility] [address] [id number] [address] [place] [address] March, [facility] [address] [id number] [address] [place] [address] March, [facility] [address] [id number] [address] [place] [address] Feb, [facility] [address] [id number] [address] [place] [address] Feb, Other chronic pain G89.29 Via [employer] [address] [place] [id number] Feb, Other chronic pain G89.29 and Anxiety F4 1.9 [facility] [address] [id number] [address] [place] [address] Feb, [facility] [address] [id number] [address] [place] [address] Jan, [facility] [address] [id number] [address] [place] [address] Jan, [facility] [address] [id number] [address] [place] [address] Jan, [facility] [address] [facility] [id number] [address] [place] [address] Jan, [facility] [address] [facility] [id number] [address] [place] [address] Dec, Via [facility] [employer] [address] [place] [id number] Dec, Peripheral vascular disease I73.9 ; 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 [address] [id number] [id number] Nov, Anxiety F41.9 [facility] [address] [facility] [id number] [address] [place] [address] Nov, [facility] [address] [id number] [place] [id number] Nov, Anxiety F41.9 Via [facility] [address] [place] [id number] Nov, Status post surgery Z98.890 ; Confused R 41.0 ; Anxiety F41.9 and Other chronic pain G89.29 [facility] [address] [id number] [place] [id number] Nov, Other chronic pain G89.29 [facility] [address] [facility] [id number] [address] [place] [address] Oct, [facility] [address] [id number] [place] [id number] 07 Oct, 2017 Other chronic pain G89.29 [facility] [address] [facility] [id number] [address] [place] [address] Oct, Anxiety F41.9 [facility] [address] [id number] [place] [id number] Sep, Other chronic pain G89.29 [facility] [address] [id number] [place] [id number] Sep, Via [facility] [address] [place] [id number] Aug, Dysuria R30.0 and Anxiety F41.9 [facility] [address] [id number] [address] [place] [address] Aug, [facility] [address] [id number] [place] [id number] Aug, Other chronic pain G89.29 [facility] [address] [facility] [id number] [address] [place] [address] Jul, Other chronic pain G89.29 [facility] [address] [id number] [place] [id number] Jun, [facility] [address] [id number] [place] [id number] Jun, Other chronic pain G89.29 [facility] [address] [id number] [address] [place] [address] Jun, [facility] [address] [id number] [address] [place] [address] May, Other chronic pain G89.29 [facility] [address] [id number] [address] [place] [address] Apr, Other chronic pain G89.29 Via [facility] [address] [place] [id number] Apr, Reactive depression F32.9 and Pharyngeal dysphagia R13.13 [facility] [address] [id number] [address] [place] [address] Apr, Urinary tract infection with out hematuria, site unspecified N39.0 [facility] [address] [id number] [address] [place] [address] March, Other chronic pain G89.29 [facility] [address] [id number] [address] [place] [address] Feb, Other chronic pain G89.29 [facility] [address] [facility] [id number] [address] [place] [address] Feb, [facility] [address] [id number] [place] [id number] Feb, [facility] [employer] [address] [place] [id number] Feb, Dysuria R30.0 and Ventral hernia without obstruction or gangrene K43.9 [place] [address] [facility] [id number] [address] [place] [address] Jan, Other chronic pain G89.29 [place] [address] [id number] [place] [id number] Dec, Other chronic pain G89.29 [place] [address] [id number] [address] [place] [address] Nov, Other chronic pain G89.29 Via [facility] [employer] [address] [place] [id number] Nov, Lymphadenitis I88.9 [facility] [address] [facility] [id number] [address] [place] [phone] Nov, Other chronic pain G89.29 [facility] [address] [id number] [address] [place] [phone] Nov, [facility] [address] [id number] [place] [id number] Nov, Other chronic pain G89.29 [facility] [address] [place] [id number] Oct, Low back pain M54.5 ; Hypertension I10 a nd Type 2 diabetes mellitus without complication, without long-term current use of insulin E11.9 [facility] [address] [id number] [address] [place] [id number] Oct, [facility] [address] [id number] [address] [place] [id number] Oct, [facility] [address] [id number] [address] [place] [phone] Oct, [facility] [address] [id number] [address] [place] [phone] Oct, [facility] [address] [id number] [address] [place] [phone] Sep, [facility] [address] [id number] [address] [place] [phone] Sep, [facility] [address] [id number] [address] [place] [id number] Aug, Other chronic pain G89.29 [facility] [address] [id number] [address] [place] [id number] Jul, [facility] [address] [id number] [address] [place] [id number] Jul, [facility] [address] [id number] [address] [place] [id number] Jul, [facility] [address] [id number] [address] [place] [phone] Jun, [facility] [address] [id number] [address] [place] [phone] Jun, Via [facility] [address] [place] [id number] Jun, Low back pain M54.5 ; Other chronic pain G89.29 and Coronary artery disease I25.10 [facility] [address] [id number] [address] [place] [phone] Jun, [facility] [address] [id number] [address] [place] [phone] 27 May, 2016 [facility] [address] [id number] [address] [place] [phone] 15 May, 2016 [facility] [address] [id number] [address] [place] [address] May, Other chronic pain G89.29 [facility] [address] [id number] [address] [place] [address] May, [facility] [address] [id number] [address] [place] [address] 28 Apr, 2016 [facility] [address] [id number] [address] [place] [id number] 17 Apr, 2016 Acute cystitis without hemat uria N30.00 [facility] [address] [id number] [address] [place] [address] 16 Apr, 2016 Acute cystitis without hemat uria N30.00 ; Coronary artery disease I25.10 ; Low back pain M54.5 and Other chronic pain G89.29 [facility] [address] [id number] [address] [place] [address] Apr, Other chronic pain G89.29 [facility] [address] [id number] [address] [place] [address] March, Other chronic pain G89.29 [facility] [address] [id number] [address] [place] [address] 18 Feb, 2016 [facility] [address] [id number] [address] [place] [phone] 15 Feb, 2016 Arthritis M19.90 [facility] [address] [id number] [address] [place] [phone] Feb, [facility] [address] [id number] [address] [place] [address] 30 Jan, 2016 [facility] [address] [id number] [address] [place] [phone] Jan, [facility] [address] [id number] [address] [place] [address] Jan, Other chronic pain G89.29 [facility] [address] [id number] [address] [place] [address] Jan, Hypertension I10 ; Coronary artery disease I25.10 and Insomnia G47.00 [facility] [address] [id number] [address] [place] [address] Jan, [facility] [address] [id number] [address] [place] [address] Dec, Right hip pain M25.551 [facility] [address] [id number] [address] [place] [phone] Dec, [facility] [address] [id number] [address] [place] [address] Dec, [facility] [address] [id number] [address] [place] [address] Dec, [facility] [address] [id number] [address] [place] [address] Dec, Other chronic pain G89.29 [facility] [address] [id number] [address] [place] [phone] Dec, [facility] [address] [id number] [address] [place] [address] Nov, [facility] [address] [id number] [address] [place] [address] Nov, Other chronic pain G89.29 [facility] [address] [id number] [address] [place] [address] Nov, Right hip pain M25.551 and C oronary artery disease I25.10 [facility] [address] [id number] [address] [place] [address] Nov, Other chronic pain G89.29 [facility] [address] [id number] [address] [place] [id number] Oct, [facility] [address] [id number] [address] [place] [phone] Oct, [facility] [address] [id number] [address] [place] [phone] Sep, [facility] [address] [id number] [address] [place] [phone] Sep, [facility] [address] [id number] [address] [place] [address] Aug, [facility] [address] [id number] [address] [place] [id number] Aug, Hypertension I10 ; Coronary artery disease I25.10 and Arthritis M19.90 [facility] [address] [id number] [address] [place] [id number] Jun, [facility] [address] [id number] [address] [place] [address] Jun, Essential hypertension, jayson gn 401.1 ; Other chronic pain 338.29 and Chronic airway obstruction, not elsewhere classified 496 [facility] [address] [id number] [address] [place] [address] Jun, [facility] [address] [id number] [address] [place] [id number] Jun, [facility] [address] [id number] [address] [place] [address] Jun, [facility] [address] [id number] [address] [place] [phone] May, [facility] [address] [id number] [address] [place] [address] May, [facility] [address] [id number] [address] [place] [phone] Apr, [facility] [address] [id number] [address] [place] [address] [place] [address] Apr, [facility] [address] [id number] [address] [place] [address], [place] [address] Apr, [facility] [address] [id number] [address] [place] [address], [place] [address] March, [facility] [address] [id number] [address] [place] [address], [place] [address] March, [facility] [address] [id number] [address] [place] [address], [place] [address] March, [facility] [address] [id number] [address] [place] [address], [place] [address] March, [facility] [address] [id number] [address] [place] [address], [place] [address] March, Sialadenitis 527.2 [facility] [address] [id number] [address] [place] [address], [place] [address] Feb, [facility] [address] [id number] [address] [place] [address], [place] [address] Feb, [facility] [address] [id number] [address] [place] [address], [place] [address] Feb, [facility] [address] [id number] [address] [place] [address], [place] [address] Feb, [facility] [address] [id number] [address] [place] [address], [place] [address] Feb, [facility] [address] [id number] [address] [place] [address], [place] [address] Jan, [facility] [address] [id number] [address] [place] [address], [place] [address] Jan, [facility] [address] [id number] [address] [place] [address], [place] [address] Jan, [facility] [address] [id number] [address] [place] [address], [place] [address] Jan, [facility] [address] [id number] [address] [place] [address], [place] [address] Jan, [facility] [address] [id number] [address] [place] [address], [place] [address] Jan, [facility] [address] [id number] [address] [place] [address], [place] [address] Dec, [facility] [address] [id number] [address] [place] [address], [place] [address] Dec, [facility] [address] [id number] [address] [place] [address], [place] [address] Dec, [facility] [address] [id number] [address] [place] [address], [place] [address] Dec, [facility] [address] [id number] [address] [place] [address], [place] [address] Dec, [facility] [address] [id number] [address] [place] [address], [place] [address] Dec, [facility] [address] [id number] [address] [place] [address], [place] [address] Nov, [facility] [address] [id number] [address] [place] [address], [place] [address] Nov, [facility] [address] [id number] [address] [place] [address], [place] [address] Nov, [facility] [address] [id number] [address] [place] [address], [place] [address] Nov, [facility] [address] [id number] [address] [place] [address], [place] [address] Nov, [facility] [address] [id number] [address] [place] [address], [place] [address] Nov, [facility] [address] [id number] [address] [place] [address], [place] [address] Nov, [facility] [address] [id number] [address] [place] [address], [place] [address] 16 Nov, 2014 [facility] [address] [id number] [address] [place] [address], [place] [address] Nov, [facility] [address] [id number] [address] [place] [address], [place] [address] Nov, [facility] [address] [id number] [address] [place] [address], [place] [address] Nov, [facility] [address] [id number] [address] [place] [address], [place] [address] Nov, [facility] [address] [id number] [address] [place] [address], [place] [address] Nov, [facility] [address] [id number] [address] [place] [address], [place] [address] Nov, [facility] [address] [id number] [address] [place] [address], [place] [address] Oct, [facility] [address] [id number] [address] [place] [address], [place] [address] Oct, [facility] [address] [id number] [address] [place] [address], [place] [address] Oct, [facility] [address] [id number] [address] [place] [address], [place] [address] 18 Oct, 2014 [facility] [address] [id number] [address] [place] [address], [place] [address] 18 Oct, 2014 [facility] [address] [id number] [address] [place] [address], [place] [address] 17 Oct, 2014 [facility] [address] [id number] [address] [place] [address], [place] [address] 17 Oct, 2014 [facility] [address] [id number] [address] [place] [address], [place] [address] 10 Oct, 2014 [facility] [address] [id number] [address] [place] [address], [place] [address] Oct, [facility] [address] [id number] [address] [place] [address], [place] [address] Sep, [facility] [address] [id number] [address] [place] [address], [place] [address] Sep, [facility] [address] [id number] [address] [place] [address], [place] [address] Sep, [facility] [address] [id number] [address] [place] [address], [place] [address] Sep, [facility] [address] [id number] [address] [place] [address], [place] [address] Sep, [facility] [address] [id number] [address] [place] [address], [place] [address] Sep, [facility] [address] [id number] [address] [place] [address], [place] [address] Sep, [facility] [address] [id number] [address] [place] [address], [place] [address] Sep, [facility] [address] [id number] [address] [place] [address], [place] [address] Sep, [facility] [address] [id number] [address] [place] [address], [place] [address] Sep, [facility] [address] [id number] [address] [place] [address], [place] [address] Sep, [facility] [address] [id number] [address] [place] [address], [place] [address] Sep, [facility] [address] [id number] [address] [place] [address], [place] [address] Aug, [facility] [address] [id number] [address] [place] [address], [place] [address] Aug, [facility] [address] [id number] [address] [place] [address], [place] [address] Aug, [facility] [address] [id number] [address] [place] [address] 29 Aug, 2014 [facility] [address] [id number] [address] [place] [address], [place] [address] Aug, [facility] [address] [id number] [address] [place] [address], [place] [address] 28 Aug, 2014 [facility] [address] [id number] [address] [place] [address], [place] [address] 17 Aug, 2014 [facility] [address] [id number] [address] [place] [address], [place] [address] 17 Aug, 2014 [facility] [address] [id number] [address] [place] [address], [place] [address] 30 Jul, 2013 [facility] [address] [id number] [address] [place] [address], [place] [address] 30 Jul, 2013 [facility] [address] [id number] [address] [place] [address], [place] [address] 30 Jul, 2013 [facility] [address] [id number] [address] [place] [address], [place] [address] 30 Jul, 2013 [facility] [address] [id number] [address] [place] [address], [place] [address] 25 Jul, 2013 [facility] [address] [id number] [address] [place] [address], [place] [address] 25 Jul, 2013 [facility] [address] [id number] [address] [place] [address], [place] [address] 15 Jul, 2013 [facility] [address] [id number] [address] [place] [address], [place] [address] 15 Jul, 2013 [facility] [address] [id number] [address] [place] [address], [place] [address] 11 Jul, 2014 [facility] [address] [id number] [address] [place] [address], [place] [address] 11 Jul, 2013 [facility] [address] [id number] [address] [place] [address], [place] [address] 29 Jun, 2014 [facility] [address] [id number] [facility] [place] [address] Jun, [facility] [address] [id number] [facility] [place] [address] Jun, [facility] [address] [id number] [facility] [place] [address] Jun, [facility] [address] [id number] [address] [place] [address], [place] [address] Jun, [facility] [address] [id number] [address] [place] [address], [place] [address] Jun, [facility] [address] [id number] [address] [place] [address], [place] [address] Jun, [facility] [address] [id number] [address] [place] [address], [place] [address] Jun, [facility] [address] [id number] [address] [place] [address], [place] [address] Jun, [facility] [address] [id number] [address] [place] [address], [place] [address] Jun, [facility] [address] [id number] [address] [place] [address], [place] [address] Jun, [facility] [address] [id number] [address] [place] [address], [place] [address] Jun, [facility] [address] [id number] [address] [place] [address], [place] [address] Jun, [facility] [address] [id number] [address] [place] [address], [place] [address] Jun, [facility] [address] [id number] [address] [place] [address], [place] [address] Jun, [facility] [address] [id number] [address] [place] [address], [place] [address] Jun, [facility] [address] [id number] [address] [place] [address], [place] [address] Jun, [facility] [address] [id number] [facility] [place] [address] Jun, [facility] [address] [id number] [address] [place] [address], [place] [address] Jun, [facility] [address] [id number] [facility] [place] [address] Jun, [facility] [address] [id number] [address] [place] [address], [place] [address] Jun, [facility] [address] [id number] [address] [place] [address], [place] [address] Jun, [facility] [address] [id number] [address] [place] [address], [place] [address] May, [facility] [address] [id number] [address] [place] [address], [place] [address] May, [facility] [address] [id number] [address] [place] [address], [place] [address] May, [facility] [address] [id number] [address] [place] [address], [place] [address] May, [facility] [address] [id number] [address] [place] [address], [place] [address] May, [facility] [address] [id number] [address] [place] [address], [place] [address] May, [facility] [address] [id number] [address] [place] [address], [place] [address] May, [facility] [address] [id number] [address] [place] [address], [place] [address] May, [facility] [address] [id number] [address] [place] [address], [place] [address] May, [facility] [address] [id number] [address] [place] [address], [place] [address] May, [facility] [address] [id number] [address] [place] [address], [place] [address] May, [facility] [address] [id number] [facility] [place] [address] May, [facility] [address] [id number] [address] [place] [address], [place] [address] May, [facility] [address] [id number] [address] [place] [address], [place] [address] Apr, [facility] [address] [id number] [address] [place] [address], [place] [address] Apr, [facility] [address] [id number] [address] [place] [address], [place] [address] Apr, [facility] [address] [id number] [address] [place] [address], [place] [address] Apr, [facility] [address] [id number] [address] [place] [address], [place] [address] Apr, [facility] [address] [id number] [address] [place] [address], [place] [address] Apr, [facility] [address] [id number] [address] [place] [address], [place] [address] Apr, [facility] [address] [id number] [address] [place] [address], [place] [address] Apr, [facility] [address] [id number] [address] [place] [address], [place] [address] Apr, [facility] [address] [id number] [address] [place] [address], [place] [address] March, [facility] [address] [id number] [address] [place] [address], [place] [address] March, [facility] [address] [id number] [address] [place] [address], [place] [address] March, [facility] [address] [id number] [address] [place] [address], [place] [address] March, [facility] [address] [id number] [address] [place] [address], [place] [address] March, [facility] [address] [id number] [address] [place] [address], [place] [address] March, [facility] [address] [id number] [address] [place] [address], [place] [address] March, [facility] [address] [id number] [address] [place] [address], [place] [address] March, [facility] [address] [id number] [address] [place] [address], [place] [address] March, [facility] [address] [id number] [address] [place] [address], [place] [address] March, [facility] [address] [id number] [address] [place] [address], [place] [address] March, [facility] [address] [id number] [address] [place] [address], [place] [address] March, [facility] [address] [id number] [address] [place] [address], [place] [address] March, [facility] [address] [id number] [address] [place] [address], [place] [address] March, [facility] [address] [id number] [address] [place] [address], [place] [address] March, [facility] [address] [id number] [address] [place] [address], [place] [address] March, [facility] [address] [id number] [address] [place] [address], [place] [address] March, [facility] [address] [id number] [address] [place] [address], [place] [address] March, [facility] [address] [id number] [address] [place] [address], [place] [address] March, [facility] [address] [id number] [address] [place] [address], [place] [address] March, [facility] [address] [id number] [facility] [place] [address] Feb, [facility] [address] [id number] [facility] [place] [address] Feb, [facility] [address] [id number] [address] [place] [address] Feb, [facility] [address] [id number] [address] [place] [address], [place] [address] Feb, [facility] [address] [id number] [address] [place] [address] Feb, [facility] [address] [id number] [address] [place] [address], [place] [address] Feb, [facility] [address] [id number] [address] [place] [address], [place] [address] Feb, [facility] [address] [id number] [address] [place] [address], [place] [address] Feb, [facility] [address] [id number] [address] [place] [address], [place] [address] Jan, [facility] [address] [id number] [address] [place] [address], [place] [address] Jan, [facility] [address] [id number] [address] [place] [address], [place] [address] Jan, [facility] [address] [id number] [address] [place] [address], [place] [address] 24 Jan, 2014 [facility] [address] [id number] [address] [place] [address], [place] [address] Jan, [facility] [facility] [address] [id number] [address] [place] [address], [place] [address] Jan, [facility] [address] [id number] [address] [place] [address], [place] [address] Jan, [facility] [address] [id number] [address] [place] [address] Jan, [facility] [address] [id number] [address] [place] [address], [place] [address] Jan, [facility] [address] [id number] [address] [place] [address], [place] [address] Jan, [facility] [address] [id number] [address] [place] [address], [place] [address] Dec, [facility] [address] [id number] [address] [place] [address], [place] [address] Dec, [facility] [address] [id number] [address] [place] [address], [place] [address] Dec, [facility] [address] [id number] [address] [place] [address], [place] [address] Dec, [facility] [address] [id number] [address] [place] [address], [place] [address] Dec, [facility] [address] [id number] [address] [place] [address], [place] [address] Dec, [facility] [address] [id number] [address] [place] [address], [place] [address] Dec, [facility] [address] [id number] [address] [place] [address], [place] [address] Dec, [facility] [address] [id number] [address] [place] [address], [place] [address] Nov, [facility] [address] [id number] [address] [place] [address], [place] [address] Nov, [facility] [address] [id number] [address] [place] [address], [place] [address] Nov, [facility] [address] [id number] [address] [place] [address], [place] [address] Nov, [facility] [address] [id number] [address] [place] [address], [place] [address] Nov, [facility] [address] [id number] [address] [place] [address], [place] [address] Nov, [facility] [address] [id number] [address] [place] [address], [place] [address] Nov, [facility] [address] [id number] [address] [place] [address], [place] [address] Nov, [facility] [address] [id number] [address] [place] [address], [place] [address] Nov, [facility] [address] [id number] [address] [place] [address], [place] [address] Nov, [facility] [address] [id number] [address] [place] [address], [place] [address] Nov, [facility] [address] [id number] [address] [place] [address], [place] [address] Nov, [facility] [address] [id number] [address] [place] [address], [place] [address] Nov, [facility] [address] [id number] [address] [place] [address], [place] [address] Oct, [facility] [address] [id number] [address] [place] [address], [place] [address] Oct, [facility] [address] [id number] [address] [place] [address], [place] [address] Oct, [facility] [address] [id number] [address] [place] [address], [place] [address] Oct, [facility] [address] [id number] [address] [place] [address], [place] [address] Oct, [facility] [address] [id number] [address] [place] [address], [place] [address] Oct, [facility] [address] [id number] [address] [place] [address], [place] [address] Oct, [facility] [address] [id number] [address] [place] [address], [place] [address] 18 Oct, 2012 [facility] [address] [id number] [address] [place] [address], [place] [address] 17 Oct, 2012 [facility] [address] [id number] [address] [place] [address], [place] [address] 17 Oct, 2013 [facility] [address] [id number] [address] [place] [address], [place] [address] 03 Oct, 2012 [facility] [address] [id number] [address] [place] [address], [place] [address] 03 Oct, 2013 [facility] [address] [id number] [address] [place] [address], [place] [address] 02 Oct, 2013 [facility] [address] [id number] [address] [place] [address], [place] [address] 02 Oct, 2013 [facility] [address] [id number] [address] [place] [address], [place] [address] 14 Sep, 2013 [facility] [address] [id number] [address] [place] [address], [place] [address] 14 Sep, 2013 [facility] [address] [id number] [address] [place] [address], [place] [address] 05 Sep, 2013 [facility] [address] [id number] [address] [place] [address], [place] [address] 05 Sep, 2013 [facility] [address] [id number] [address] [place] [address], [place] [address] Sep, [facility] [address] [id number] [address] [place] [address], [place] [address] Sep, [facility] [address] [id number] [address] [place] [address], [place] [address] Sep, [facility] [address] [id number] [address] [place] [address], [place] [address] Sep, [facility] [address] [id number] [address] [place] [address], [place] [address] Sep, [facility] [address] [id number] [address] [place] [address], [place] [address] Sep, [facility] [address] [id number] [address] [place] [address], [place] [address] Aug, [facility] [address] [id number] [address] [place] [address], [place] [address] Aug, [facility] [address] [id number] [address] [place] [address], [place] [address] Aug, [facility] [address] [id number] [address] [place] [address], [place] [address] Aug, [facility] [address] [id number] [address] [place] [address], [place] [address] Aug, [facility] [address] [id number] [address] [place] [address], [place] [address] Aug, [facility] [address] [id number] [address] [place] [address], [place] [address] Aug, [facility] [address] [id number] [address] [place] [address], [place] [address] Aug, [facility] [address] [id number] [address] [place] [address] Aug, [facility] [address] [id number] [address] [place] [address] Aug, [facility] [address] [id number] [address] [place] [address] Aug, [facility] [address] [id number] [address] [place] [address], [place] [address] Aug, [facility] [address] [id number] [address] [place] [address], [place] [address] Aug, [facility] [address] [id number] [address] [place] [address] Aug, [facility] [address] [id number] [address] [place] [address] 17 Aug, 2013 [facility] [address] [id number] [address] [place] [address], [place] [address] 14 Aug, 2013 [facility] [address] [id number] [address] [place] [address], [place] [address] 14 Aug, 2013 [facility] [address] [id number] [address] [place] [address], [place] [address] Aug, [facility] [address] [id number] [address] [place] [address], [place] [address] 20 Jul, 2013 [facility] [address] [id number] [address] [place] [address], [place] [address] 19 Jul, 2013 [facility] [address] [id number] [address] [place] [address], [place] [address] 18 Jul, 2013 [facility] [address] [id number] [address] [place] [address], [place] [address] 11 Jul, 2013 [facility] [address] [id number] [address] [place] [address], [place] [address] 11 Jul, 2013 [facility] [address] [id number] [address] [place] [address], [place] [address] 28 Jun, 2013 [facility] [address] [id number] [address] [place] [address], [place] [address] Jun, [facility] [address] [id number] [address] [place] [address], [place] [address] Jun, [facility] [address] [id number] [address] [place] [address], [place] [address] 15 Jun, 2013 [facility] [address] [id number] [address] [place] [address], [place] [address] 14 Jun, 2013 [facility] [address] [id number] [address] [place] [address], [place] [address] Jun, [facility] [address] [id number] [address] [place] [address], [place] [address] Jun, [facility] [address] [id number] [address] [place] [address], [place] [address] Jun, [facility] [address] [id number] [address] [place] [address], [place] [address] Jun, [facility] [address] [id number] [address] [place] [address], [place] [address] Jun, [facility] [address] [id number] [address] [place] [address], [place] [address] May, [facility] [address] [id number] [address] [place] [address], [place] [address] May, [facility] [address] [id number] [address] [place] [address], [place] [address] May, [facility] [address] [id number] [address] [place] [address], [place] [address] May, [facility] [address] [id number] [address] [place] [address], [place] [address] May, [facility] [address] [id number] [address] [place] [address], [place] [address] May, [facility] [address] [id number] [address] [place] [address], [place] [address] May, [facility] [address] [id number] [address] [place] [address], [place] [address] May, [facility] [address] [id number] [address] [place] [address], [place] [address] May, [facility] [address] [id number] [address] [place] [address], [place] [address] Apr, [facility] [address] [id number] [address] [place] [address], [place] [address] Apr, [facility] [address] [id number] [address] [place] [address], [place] [address] Apr, [facility] [address] [id number] [address] [place] [address], [place] [address] Apr, [facility] [address] [id number] [facility] [place] [address] Apr, [facility] [address] [id number] [address] [place] [address], [place] [address] Apr, [facility] [address] [id number] [address] [place] [address], [place] [address] Apr, [facility] [address] [id number] [address] [place] [address], [place] [address] March, [facility] [address] [id number] [address] [place] [address], [place] [address] Feb, [facility] [address] [id number] [address] [place] [address], [place] [address] Feb, [facility] [address] [id number] [address] [place] [address], [place] [address] Feb, [facility] [address] [id number] [address] [place] [address], [place] [address] Jan, [facility] [address] [id number] [address] [place] [address], [place] [address] Jan, [facility] [address] [id number] [address] [place] [address], [place] [address] Jan, [facility] [address] [id number] [address] [place] [address], [place] [address] 14 Jan, 2013 [facility] [address] [id number] [address] [place] [address], [place] [address] 12 Jan, 2013 [facility] [address] [id number] [address] [place] [address], [place] [address] 08 Jan, 2013 [facility] [address] [id number] [address] [place] [address], [place] [address] 07 Jan, 2013 [facility] [address] [id number] [address] [place] [address], [place] [address] 04 Jan, 2013 [facility] [address] [id number] [address] [place] [address], [place] [address] 28 Dec, 2012 [facility] [address] [id number] [address] [place] [address], [place] [address] 25 Dec, 2012 [facility] [address] [id number] [address] [place] [address], [place] [address] 13 Dec, 2012 [facility] [address] [id number] [address] [place] [address], [place] [address] 11 Dec, 2012 [facility] [address] [id number] [address] [place] [address], [place] [address] 07 Dec, 2012 [facility] [address] [id number] [address] [place] [address], [place] [address] 06 Dec, 2012 [facility] [address] [id number] [address] [place] [address], [place] [address] 05 Dec, 2012 [facility] [address] [id number] [address] [place] [address], [place] [address] Nov, [facility] [address] [id number] [address] [place] [address], [place] [address] 24 Nov, 2012 [facility] [address] [id number] [address] [place] [address], [place] [address] 18 Nov, 2012 [facility] [address] [id number] [address] [place] [address], [place] [address] 15 Nov, 2012 [facility] [address] [id number] [address] [place] [address], [place] [address] Nov, [facility] [address] [id number] [address] [place] [address], [place] [address] Nov, [facility] [address] [id number] [address] [place] [address], [place] [address] Nov, [facility] [address] [id number] [address] [place] [address], [place] [address] Oct, [facility] [address] [id number] [address] [place] [address], [place] [address] Oct, [facility] [address] [id number] [address] [place] [address], [place] [address] Oct, [facility] [address] [id number] [address] [place] [address], [place] [address] Oct, [facility] [address] [id number] [address] [place] [address], [place] [address] Oct, [facility] [address] [id number] [address] [place] [address], [place] [address] Oct, [facility] [address] [id number] [address] [place] [address], [place] [address] Oct, [facility] [address] [id number] [address] [place] [address], [place] [address] Oct, [facility] [address] [id number] [address] [place] [address], [place] [address] Oct, [facility] [address] [id number] [address] [place] [address], [place] [address] Oct, [facility] [address] [id number] [address] [place] [address], [place] [address] Oct, [facility] [address] [id number] [address] [place] [address], [place] [address] Oct, [facility] [address] [id number] [address] [place] [address], [place] [address] Sep, [facility] [address] [id number] [address] [place] [address], [place] [address] Sep, [facility] [address] [id number] [address] [place] [address], [place] [address] Sep, [facility] [address] [id number] [address] [place] [address], [place] [address] Sep, [facility] [address] [id number] [address] [place] [address], [place] [address] Sep, [facility] [address] [id number] [address] [place] [address] Sep, [facility] [address] [id number] [address] [place] [address], [place] [address] Sep, [facility] [address] [id number] [address] [place] [address] Sep, [facility] [address] [id number] [address] [place] [address] Sep, [facility] [address] [id number] [address] [place] [id number] Sep, [facility] [address] [id number] [address] [place] [address], [place] [address] Sep, [facility] [address] [id number] [address] [place] [id number] Aug, [facility] [address] [id number] [address] [place] [id number] Aug, [facility] [address] [id number] [address] [place] [address] Aug, [facility] [address] [id number] [address] [place] [id number] Aug, [facility] [address] [id number] [address] [place] [address] Aug, [facility] [address] [id number] [address] [place] [id number] Aug, [facility] [address] [id number] [address] [place] [id number] Aug, [facility] [address] [id number] [address] [place] [address] Aug, [facility] [address] [id number] [address] [place] [id number] Aug, [facility] [address] [id number] [address] [place] [id number] Aug, [facility] [address] [id number] [facility] [place] [address] 22 Jul, 2011 [facility] [address] [id number] [facility] [place] [address] 20 Jul, 2011 [facility] [address] [id number] [facility] [place] [address] 10 Jul, 2012 [facility] [address] [id number] [address] [place] [address], [place] [address] 06 Jul, 2012 [facility] [address] [id number] [address] [place] [address], [place] [address] 30 Jun, 2012 [facility] [address] [id number] [address] [place] [address], [place] [address] Jun, [facility] [address] [id number] [address] [place] [address], [place] [address] 16 Jun, 2012 [facility] [address] [id number] [address] [place] [address], [place] [address] Jun, [facility] [address] [id number] [address] [place] [address], [place] [address] Jun, [facility] [address] [id number] [address] [place] [address], [place] [address] Jun, [facility] [address] [id number] [address] [place] [address], [place] [address] Jun, [facility] [address] [id number] [address] [place] [address], [place] [address] May, [facility] [address] [id number] [address] [place] [address], [place] [address] May, [facility] [address] [id number] [address] [place] [address], [place] [address] May, [facility] [address] [id number] [address] [place] [address], [place] [address] May, [facility] [address] [id number] [address] [place] [address] [address] May, [facility] [address] [id number] [address] [place] [address], [place] [address] Apr, [facility] [address] [id number] [address] [place] [address], [place] [address] Apr, [facility] [address] [id number] [address] [place] [address], [place] [address] Apr, [facility] [address] [id number] [address] [place] [address], [place] [address] Apr, [facility] [address] [id number] [address] [place] [address], [place] [address] Apr, [facility] [address] [id number] [address] [place] [address], [place] [address] March, [facility] [address] [id number] [address] [place] [address], [place] [address] March, [facility] [address] [id number] [address] [place] [address], [place] [address] March, [facility] [address] [id number] [address] [place] [address], [place] [address] March, [facility] [address] [id number] [address] [place] [address], [place] [address] March, [facility] [address] [id number] [address] [place] [address], [place] [address] March, [facility] [address] [id number] [address] [place] [address], [place] [address] March, [facility] [address] [id number] [address] [place] [address], [place] [address] March, [facility] [address] [id number] [address] [place] [address], [place] [address] March, [facility] [address] [id number] [address] [place] [address], [place] [address] March, [facility] [address] [id number] [address] [place] [address], [place] [address] 30 Feb, 2012 [facility] [address] [id number] [address] [place] [address], [place] [address] 27 Feb, 2012 [facility] [address] [id number] [address] [place] [address], [place] [address] 26 Feb, 2012 [facility] [address] [id number] [address] [place] [address], [place] [address] Feb, [facility] [address] [id number] [address] [place] [address], [place] [address] Feb, [facility] [address] [id number] [address] [place] [address], [place] [address] Feb, [facility] [address] [id number] [address] [place] [address], [place] [address] Feb, [facility] [address] [id number] [address] [place] [address], [place] [phone] Feb, [facility] [address] [id number] [address] [place] [address], [place] [phone] Feb, [facility] [address] [id number] [address] [place] [address], [place] [id number] 08 Jan, 2012 [facility] [address] [id number] [address] [place] [address], [place] [address] Jan, [facility] [address] [id number] [address] [place] [address], [place] [id number] 05 Jan, 2012 [facility] [address] [id number] [address] [place] [address], [place] [phone] Jan, [facility] [address] [id number] [address] [place] [address], [place] [phone] Dec, [facility] [address] [id number] [address] [place] [address], [place] [phone] Dec, [facility] [address] [id number] [address] [place] [address], [place] [address] Nov, [facility] [address] [id number] [address] [place] [phone] Nov, [facility] [address] [id number] [address] [place] [phone] Nov, [facility] [address] [id number] [address] [place] [phone] Nov, [facility] [address] [id number] [address] [place] [phone] Nov, [facility] [address] [id number] [address] [place] [id number] Oct, [facility] [address] [id number] [address] [place] [phone] Oct, [facility] [address] [id number] [address] [place] [phone] Oct, [facility] [address] [id number] [address] [place] [phone] Oct, [facility] [address] [id number] [address] [place] [phone] Oct, [facility] [address] [id number] [address] [place] [phone] Oct, [facility] [address] [id number] [address] [place] [id number] Oct, [facility] [address] [id number] [address] [place] [phone] Oct, [facility] [address] [id number] [address] [place] [id number] Sep, IMMUNIZATIONS No Known Immunizations SOCIAL HISTORY [...] fever, discharged 11/27/2017 11/26/2017 Hospitalization History [facility]- Went Unrepsonsive, Hit head 2017 Hospitalization History [facility]- Back Pain 8
--- OUTSIDE RECORDS SUMMARY | 2020-06-18 15:35 | XMS REPORT ---
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 Name Role Phone Migration, Doctor Unavailable Unavailable PROBLEMS Type Condition ICD9-CM Code MGA68-YD Code Onset Dates Condition S tatus SNOMED Code Problem Hypertension I10 Active 8488428 3 Problem Hyperlipidemia E78.5 Active 98679 004 Problem Coronary artery disease I25.10 Active 86772036 Problem Low back pain M54.5 Active 288676 009 Problem Other chronic pain G89.29 Active 8 1605715 Problem Ventral hernia without obstruction or gangrene K43 .9 Active 481109037 Problem Type 2 diabetes mellitus wit hout complication, without long-term current use of insulin E11.9 Active 520403393 Problem Anxiety F41.9 Active 10762979 Problem Peripheral vascular disease I73.9 Ac tive 386640504 Problem Insomnia G47.00 Active 132544892 Problem Microcytic anemia D50.9 Active 23 0733685 Problem Pharyngeal dysphagia R13.13 Active 72578779180305 Problem Other iron deficiency anemia D50.8 A ctive 88219529 Problem Reactive depression F32.9 Active 06100547 Problem Paroxysmal atrial fibrillation I48.0 Active 618849119 Problem Postmenopausal atrophic vaginitis N95.2 Active 18204363 Problem Encounter for suprapubic catheter care Z43.5 Active 768515499 Problem Neurogenic bladder N31.9 Active 3 [id number] ALLERGIES No Information ENCOUNTERS Encounter Location Date Diagnosis [facility] [address] [facility] [id number] [address] [place] [phone] May, [facility] [address] [facility] [id number] [address] [place] [phone] May, Strain of right shoulder, scherer bsequent encounter S46.911D and Anxiety F41.9 [facility] [address] [facility] [id number] [address] [place] [phone] Apr, Anxiety F41.9 and Strain of right shoulder, subsequent encounter S46.911D [facility] [address] [id number] [address] [place] [phone] Apr, [facility] [address] [id number] [address] [place] [phone] March, [facility] [address] [id number] [address] [place] [phone] March, Anxiety F41.9 and Strain of right shoulder, subsequent encounter S46.911D [facility] [address] [id number] [address] [place] [phone] Feb, Anxiety F41.9 and Strain of right shoulder, subsequent encounter S46.911D [facility] [address] [id number] [address] [place] [address] Jan, Anxiety F41.9 and Strain of right shoulder, subsequent encounter S46.911D [facility] [address] [id number] [address] [place] [phone] Jan, [facility] [employer] [address] [place] [id number] Jan, Neurogenic bladder N31.9 [facility] [address] [id number] [address] [place] [phone] Dec, [facility] [address] [id number] [address] [place] [phone] Dec, [facility] [address] [id number] [address] [place] [id number] Dec, Anxiety F41.9 and Strain of right shoulder, subsequent encounter S46.911D [facility] [address] [id number] [address] [place] [phone] 10 Dec, 2019 Other iron deficiency anemia D50.8 [facility] [address] [id number] [address] [place] [phone] Dec, [facility] [address] [place] [id number] 04 Dec, 2019 Encounter for suprapubic catheter care Z 43.5 and Microcytic anemia D50.9 [place] [address] [id number] [address] [place] [phone] 03 Dec, 2019 [place] [address] [id number] [address] [place] [address] Nov, Anxiety F41.9 and Strain of right shoulder, subsequent encounter S46.911D [place] [address] [id number] [address] [place] [phone] Nov, Hypertension I10 [facility] [address] [place] [id number] Nov, Pneumonia of both lungs due to infectiou s organism, unspecified part of lung J18.9 and Suprapubic catheter Z93.59 [place] [address] [id number] [address] [place] [phone] Nov, Hypertension I10 and Reactiv e depression F32.9 [place] [address] [id number] [address] [place] [phone] Oct, Strain of right shoulder, scherer bsequent encounter S46.911D and Anxiety F41.9 [place] [address] [id number] [address] [place] [phone] Oct, [facility] [employer] [address] [place] [id number] Oct, Suprapubic catheter Z93.59 and Candidias is, intertriginous B37.2 [place] [address] [id number] [address] [place] [phone] Oct, Suprapubic catheter Z93.59 [place] [address] [id number] [address] [place] [phone] Oct, Anxiety F41.9 and Strain of right shoulder, subsequent encounter S46.911D [place] [address] [id number] [address] [place] [phone] Sep, [facility] [address] [id number] [address] [place] [phone] Sep, [facility] [address] [id number] [address] [place] [phone] Sep, [facility] [address] [place] [id number] Sep, Suprapubic catheter Z93.59 [facility] [address] [id number] [address] [place] [address] Sep, Anxiety F41.9 and Strain of right shoulder, subsequent encounter S46.911D [facility] [address] [id number] [address] [place] [address] Aug, [facility] [address] [id number] [address] [place] [phone] Aug, [facility] [address] [id number] [address] [place] [phone] Aug, Anxiety F41.9 and Strain of right shoulder, subsequent encounter S46.911D [facility] [address] [place] [id number] Aug, Suprapubic catheter Z93.59 [facility] [address] [id number] [address] [place] [phone] Jul, Strain of right shoulder, scherer bsequent encounter S46.911D and Anxiety F41.9 [facility] [address] [id number] [address] [place] [address] Jul, Anxiety F41.9 [facility] [address] [id number] [address] [place] [phone] Jun, [facility] [address] [id number] [address] [place] [phone] Jun, [facility] [address] [id number] [address] [place] [phone] Jun, [facility] [address] [id number] [address] [place] [phone] Jun, Strain of right shoulder, scherer bsequent encounter S46.911D [place] [address] [id number] [address] [place] [id number] Jun, Strain of right shoulder, scherer bsequent encounter S46.911D [place] [address] [id number] [address] [place] [phone] Jun, Anxiety F41.9 [facility] [address] [place] [id number] Jun, Neurogenic bladder N31.9 and Anxiety F41 .9 [facility] [address] [place] [id number] May, Anxiety F41.9 [place] [address] [id number] [address] [place] [phone] May, Dysuria R30.0 [place] [address] [id number] [address] [place] [address] May, Strain of right shoulder, scherer bsequent encounter S46.911D and Anxiety F41.9 [place] [address] [id number] [address] [place] [address] Apr, [facility] [address] [place] [id number] Apr, Strain of right shoulder, subsequent enc ounter S46.911D [place] [address] [id number] [address] [place] [phone] 14 Apr, 2019 Strain of right shoulder, scherer bsequent encounter S46.911D and Anxiety F41.9 [facility] [address] [place] [id number] Apr, Type 2 diabetes mellitus without complic ation, without long-term current use of insulin E11.9 and Neurogenic bladder N31.9 [facility] [address] [place] [id number] Apr, Strain of right shoulder, subsequent enc ounter S46.911D ; History of GI bleed Z87.19 ; Neurogenic bladder N31.9 and Reactive depression F32.9 [facility] [address] [id number] [address] [place] [address] Apr, Acute pain of left shoulder M25.512 [facility] [address] [id number] [address] [place] [address] Apr, [facility] [address] [id number] [address] [place] [phone] Apr, Anxiety F41.9 and 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 [facility] [employer] [address] [place] [id number] March, Gastrointestinal hemorrhage associated w ith acute gastritis K29.01 [facility] [address] [id number] [address] [place] [phone] March, [facility] [employer] [address] [place] [id number] March, Bronchitis J40 [facility] [address] [id number] [address] [place] [phone] March, Cough R05 [facility] [address] [id number] [address] [place] [id number] March, Other chronic pain G89.29 [facility] [address] [id number] [address] [place] [phone] March, Anxiety F41.9 [facility] [address] [id number] [address] [place] [phone] March, [facility] [address] [id number] [address] [place] [phone] Feb, Other chronic pain G89.29 [facility] [address] [id number] [address] [place] [phone] Feb, Anxiety F41.9 [facility] [address] [id number] [address] [place] [phone] Feb, Other chronic pain G89.29 [facility] [address] [place] [id number] Feb, Neurogenic bladder N31.9 and Suprapubic catheter Z93.59 [facility] [address] [id number] [address] [place] [phone] Jan, Anxiety F41.9 [facility] [address] [id number] [address] [place] [phone] Dec, Anxiety F41.9 [facility] [address] [id number] [address] [place] [phone] Dec, Other chronic pain G89.29 an d Anxiety F41.9 [facility] [address] [id number] [address] [place] [phone] Dec, Via [employer] [address] [place] [id number] Dec, Neurogenic bladder N31.9 and Suprapubic catheter Z93.59 [facility] [address] [id number] [address] [place] [phone] Nov, Other chronic pain G89.29 an d Anxiety F41.9 [facility] [address] [id number] [address] [place] [phone] Nov, [facility] [address] [place] [id number] Nov, Suprapubic catheter Z93.59 [facility] [address] [id number] [address] [place] [phone] Oct, Other chronic pain G89.29 an d Anxiety F41.9 [facility] [address] [id number] [address] [place] [id number] Oct, [facility] [address] [id number] [address] [place] [phone] Oct, Suprapubic catheter Z93.59 [facility] [address] [id number] [address] [place] [phone] Oct, [facility] [address] [place] [id number] Oct, [facility] [address] [id number] [address] [place] [phone] Oct, Anxiety F41.9 [facility] [address] [id number] [address] [place] [phone] Oct, Anxiety F41.9 [facility] [address] [place] [id number] Oct, Other chronic pain G89.29 [facility] [address] [id number] [address] [place] [phone] Sep, Other chronic pain G89.29 [facility] [address] [place] [id number] Sep, Suprapubic catheter Z93.59 and Cervicalg ia M54.2 [facility] [address] [id number] [address] [place] [phone] Sep, [facility] [address] [id number] [address] [place] [phone] Sep, [facility] [address] [id number] [address] [place] [phone] Sep, [facility] [address] [place] [id number] Aug, Cystitis N30.90 [facility] [address] [id number] [address] [place] [phone] Aug, [facility] [address] [id number] [address] [place] [phone] Aug, Other chronic pain G89.29 [facility] [address] [id number] [address] [place] [phone] Aug, [facility] [address] [place] [id number] Aug, Encounter for suprapubic catheter care Z 43.5 [facility] [address] [id number] [address] [place] [phone] Jul, [facility] [employer] [address] [place] [id number] Jul, [facility] [address] [id number] [address] [place] [phone] Jul, Other chronic pain G89.29 [facility] [address] [id number] [address] [place] [phone] Jul, [place] [address] [id number] [address] [place] [phone] Jul, [facility] [employer] [address] [place] [id number] Jun, Postmenopausal atrophic vaginitis N95.2 [place] [address] [id number] [address] [place] [address] Jun, Other chronic pain G89.29 [place] [address] [id number] [address] [place] [phone] Jun, [facility] [employer] [address] [place] [id number] May, Anxiety F41.9 ; Type 2 diabetes mellitus without complication, without long-term current use of insulin E11.9 ; Hypertension I10 ; Low back pain M54.5 ; Paroxysmal atrial fibrillation I48.0 and 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 [place] [address] [id number] [address] [place] [address] May, Other chronic pain G89.29 [facility] [employer] [address] [place] [id number] May, Low back pain M54.5 [place] [address] [id number] [address] [place] [phone] May, [facility] [address] [id number] [address] [place] [phone] Apr, Other chronic pain G89.29 [facility] [address] [id number] [address] [place] [phone] Apr, [facility] [address] [id number] [address] [place] [address] Apr, [facility] [employer] [address] [place] [id number] 19 Apr, 2018 Closed compression fracture of L3 lumbar vertebra with routine healing, subsequent encounter S32.030D [facility] [employer] [address] [place] [id number] 14 Apr, 2018 Low back pain M54.5 [facility] [employer] [address] [place] [id number] 12 Apr, 2018 Coccydynia M53.3 [facility] [address] [id number] [address] [place] [phone] March, [facility] [address] [id number] [address] [place] [phone] March, Other chronic pain G89.29 [facility] [address] [id number] [address] [place] [phone] March, [facility] [address] [id number] [address] [place] [phone] March, [facility] [address] [id number] [address] [place] [phone] Feb, [facility] [address] [id number] [address] [place] [phone] Feb, Other chronic pain G89.29 [facility] [employer] [address] [place] [id number] Feb, Other chronic pain G89.29 and Anxiety F4 1.9 [facility] [address] [id number] [address] [place] [phone] Feb, [facility] [address] [id number] [address] [place] [phone] Jan, [facility] [address] [id number] [address] [place] [phone] Jan, [facility] [address] [facility] [id number] [address] [place] [phone] Jan, [facility] [address] [facility] [id number] [address] [place] [phone] Jan, [facility] [address] [facility] [id number] [address] [place] [phone] Dec, [facility] [address] [place] [id number] Dec, Peripheral vascular disease I73.9 ; 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 [address] [id number] [place] [id number] Nov, Anxiety F41.9 [facility] [address] [facility] [id number] [address] [place] [phone] Nov, [facility] [address] [id number] [place] [id number] Nov, Anxiety F41.9 [facility] [address] [place] [id number] Nov, Status post surgery Z98.890 ; Confused R 41.0 ; Anxiety F41.9 and Other chronic pain G89.29 [facility] [address] [id number] [place] [id number] Nov, Other chronic pain G89.29 [facility] [address] [facility] [id number] [address] [place] [phone] Oct, [facility] [address] [id number] [id number] Oct, Other chronic pain G89.29 [facility] [address] [id number] [address] [place] [phone] Oct, Anxiety F41.9 [facility] [address] [id number] [place] [id number] Sep, Other chronic pain G89.29 [facility] [address] [id number] [place] [id number] Sep, [facility] [employer] [address] [place] [id number] Aug, Dysuria R30.0 and Anxiety F41.9 [facility] [address] [id number] [address] [place] [phone] Aug, [facility] [address] [id number] [place] [id number] Aug, Other chronic pain G89.29 [facility] [address] [facility] [id number] [address] [place] [phone] Jul, Other chronic pain G89.29 [facility] [address] [id number] [place] [id number] Jun, [facility] [address] [id number] [place] [id number] Jun, Other chronic pain G89.29 [facility] [address] [facility] [id number] [address] [place] [phone] Jun, [facility] [address] [facility] [id number] [address] [place] [phone] May, Other chronic pain G89.29 [facility] [address] [facility] [id number] [address] [place] [address] Apr, Other chronic pain G89.29 [facility] [address] [place] [id number] Apr, Reactive depression F32.9 and Pharyngeal dysphagia R13.13 [facility] [address] [id number] [address] [place] [phone] Apr, Urinary tract infection with out hematuria, site unspecified N39.0 [facility] [address] [id number] [address] [place] [phone] March, Other chronic pain G89.29 [facility] [address] [facility] [id number] [address] [place] [id number] Feb, Other chronic pain G89.29 [facility] [address] [id number] [address] [place] [phone] Feb, [facility] [address] [id number] [place] [id number] Feb, Via [facility] [employer] [address] [place] [id number] Feb, Dysuria R30.0 and Ventral hernia without obstruction or gangrene K43.9 [facility] [address] [facility] [id number] [address] [place] [phone] Jan, Other chronic pain G89.29 [facility] [address] [id number] [place] [id number] Dec, Other chronic pain G89.29 [facility] [address] [id number] [address] [place] [phone] Nov, Other chronic pain G89.29 [facility] [address] [place] [id number] Nov, Lymphadenitis I88.9 [facility] [address] [id number] [address] [place] [phone] Nov, Other chronic pain G89.29 [facility] [address] [id number] [address] [place] [phone] Nov, [facility] [address] [id number] [place] [id number] Nov, Other chronic pain G89.29 [facility] [address] [place] [id number] Oct, Low back pain M54.5 ; Hypertension I10 a nd Type 2 diabetes mellitus without complication, without long-term current use of insulin E11.9 [facility] [address] [id number] [address] [place] [phone] Oct, [facility] [address] [id number] [address] [place] [phone] Oct, [facility] [address] [id number] [address] [place] [phone] Oct, [facility] [address] [id number] [address] [place] [address] [id number] Oct, [facility] [address] [id number] [address] [place] [id number] Sep, [facility] [address] [id number] [address] [place] [id number] Sep, [facility] [address] [id number] [address] [place] [id number] Aug, Other chronic pain G89.29 [facility] [address] [id number] [address] [place] [id number] Jul, [facility] [address] [id number] [address] [place] [id number] Jul, [facility] [address] [id number] [address] [place] [phone] Jul, [facility] [address] [id number] [address] [place] [phone] Jun, [facility] [address] [id number] [address] [place] [id number] Jun, [facility] [address] [place] [id number] Jun, Low back pain M54.5 ; Other chronic pain G89.29 and Coronary artery disease I25.10 [facility] [address] [id number] [address] [place] [id number] Jun, [facility] [address] [id number] [address] [place] [id number] May, [facility] [address] [id number] [address] [place] [id number] May, [facility] [address] [id number] [address] [place] [id number] May, Other chronic pain G89.29 [facility] [address] [id number] [address] [place] [phone] May, [facility] [address] [id number] [address] [place] [id number] Apr, [facility] [address] [id number] [address] [place] [id number] 17 Apr, 2016 Acute cystitis without hemat uria N30.00 [facility] [address] [id number] [address] [place] [id number] 16 Apr, 2016 Acute cystitis without hemat uria N30.00 ; Coronary artery disease I25.10 ; Low back pain M54.5 and Other chronic pain G89.29 [facility] [address] [id number] [address] [place] [id number] Apr, Other chronic pain G89.29 [facility] [address] [id number] [address] [place] [id number] March, Other chronic pain G89.29 [facility] [address] [id number] [address] [place] [id number] 18 Feb, 2016 [facility] [address] [id number] [address] [place] [id number] Feb, Arthritis M19.90 [facility] [address] [id number] [address] [place] [phone] Feb, [facility] [address] [id number] [address] [place] [id number] Jan, [facility] [address] [id number] [address] [place] [phone] Jan, [facility] [address] [id number] [address] [place] [phone] Jan, Other chronic pain G89.29 [facility] [address] [id number] [address] [place] [id number] Jan, Hypertension I10 ; Coronary artery disease I25.10 and Insomnia G47.00 [facility] [address] [id number] [address] [place] [id number] Jan, [facility] [address] [id number] [address] [place] [phone] Dec, Right hip pain M25.551 [facility] [address] [id number] [address] [place] [phone] Dec, [facility] [address] [id number] [address] [place] [id number] Dec, [facility] [address] [id number] [address] [place] [address] Dec, [facility] [address] [id number] [address] [place] [id number] Dec, Other chronic pain G89.29 [facility] [address] [id number] [address] [place] [phone] Dec, [facility] [address] [id number] [address] [place] [id number] Nov, [facility] [address] [id number] [address] [place] [phone] Nov, Other chronic pain G89.29 [facility] [address] [id number] [address] [place] [id number] Nov, Right hip pain M25.551 and C oronary artery disease I25.10 [facility] [address] [id number] [address] [place] [id number] Nov, Other chronic pain G89.29 [facility] [address] [id number] [address] [place] [phone] Oct, [facility] [address] [id number] [address] [place] [phone] Oct, [facility] [address] [id number] [address] [place] [id number] Sep, [facility] [address] [id number] [address] [place] [phone] Sep, [facility] [address] [id number] [address] [place] [id number] Aug, [facility] [address] [facility] [id number] [address] [place] [id number] Aug, Hypertension I10 ; Coronary artery disease I25.10 and Arthritis M19.90 [facility] [address] [id number] [address] [place] [id number] Jun, [facility] [address] [id number] [address] [place] [phone] Jun, Essential hypertension, jayson gn 401.1 ; Other chronic pain 338.29 and Chronic airway obstruction, not elsewhere classified 496 [facility] [address] [id number] [address] [place] [phone] Jun, [facility] [address] [id number] [address] [place] [phone] Jun, [facility] [address] [id number] [address] [place] [id number] Jun, [facility] [address] [id number] [address] [place] [phone] May, [facility] [address] [facility] [id number] [address] [place] [phone] May, [facility] [address] [id number] [address] [place] [address] [place] [address] Apr, [facility] [address] [id number] [address] [place] [address], [place] [address] Apr, [facility] [address] [id number] [address] [place] [address], [place] [address] Apr, [facility] [address] [id number] [address] [place] [address], [place] [address] March, [facility] [address] [id number] [address] [place] [address], [place] [address] March, [facility] [address] [id number] [address] [place] [address], [place] [address] March, [facility] [address] [id number] [address] [place] [address], [place] [address] March, [facility] [address] [id number] [address] [place] [address], [place] [address] March, Sialadenitis 527.2 [facility] [address] [id number] [address] [place] [address], [place] [address] Feb, [facility] [address] [id number] [address] [place] [address], [place] [address] Feb, [facility] [address] [id number] [address] [place] [address], [place] [address] Feb, [facility] [address] [id number] [address] [place] [address], [place] [address] 14 Feb, 2015 [facility] [address] [id number] [address] [place] [address], [place] [address] Feb, [facility] [address] [id number] [address] [place] [address], [place] [address] Jan, [facility] [address] [id number] [address] [place] [address], [place] [address] Jan, [facility] [address] [id number] [address] [place] [address], [place] [address] Jan, [facility] [address] [id number] [address] [place] [address], [place] [address] Jan, [facility] [address] [id number] [address] [place] [address], [place] [address] Jan, [facility] [address] [id number] [address] [place] [address], [place] [address] Jan, [facility] [address] [id number] [address] [place] [address], [place] [address] Dec, [facility] [address] [id number] [address] [place] [address], [place] [address] Dec, [facility] [address] [id number] [address] [place] [address], [place] [address] Dec, [facility] [address] [id number] [address] [place] [address], [place] [address] Dec, [facility] [address] [id number] [address] [place] [address], [place] [address] Dec, [facility] [address] [id number] [address] [place] [address], [place] [address] Dec, [facility] [address] [id number] [address] [place] [address], [place] [address] Nov, [facility] [address] [id number] [address] [place] [address], [place] [address] Nov, [facility] [address] [id number] [address] [place] [address], [place] [address] Nov, [facility] [address] [id number] [address] [place] [address], [place] [address] Nov, [facility] [address] [id number] [address] [place] [address], [place] [address] Nov, [facility] [address] [id number] [address] [place] [address], [place] [address] Nov, [facility] [address] [id number] [address] [place] [address], [place] [address] Nov, [facility] [address] [id number] [address] [place] [address], [place] [address] Nov, [facility] [address] [id number] [address] [place] [address], [place] [address] Nov, [facility] [address] [id number] [address] [place] [address], [place] [address] Nov, [facility] [address] [id number] [address] [place] [address], [place] [address] Nov, [facility] [address] [id number] [address] [place] [address], [place] [address] Nov, [facility] [address] [id number] [address] [place] [address], [place] [address] Nov, [facility] [address] [id number] [address] [place] [address], [place] [address] Nov, [facility] [address] [id number] [address] [place] [address], [place] [address] Oct, [facility] [address] [id number] [address] [place] [address], [place] [address] Oct, [facility] [address] [id number] [address] [place] [address], [place] [id number] 19 Oct, 2014 [facility] [address] [id number] [address] [place] [address], [place] [address] 18 Oct, 2014 [facility] [address] [id number] [address] [place] [address], [place] [address] 18 Oct, 2014 [facility] [address] [id number] [address] [place] [address], [place] [address] 17 Oct, 2014 [facility] [address] [id number] [address] [place] [address], [place] [address] 17 Oct, 2014 [facility] [address] [id number] [address] [place] [address], [place] [address] Oct, [facility] [address] [id number] [address] [place] [address], [place] [address] Oct, [facility] [address] [id number] [address] [place] [address], [place] [address] Sep, [facility] [address] [id number] [address] [place] [address], [place] [address] Sep, [facility] [address] [id number] [address] [place] [address], [place] [address] Sep, [facility] [address] [id number] [address] [place] [address], [place] [address] Sep, [facility] [address] [id number] [address] [place] [address], [place] [address] Sep, [facility] [address] [id number] [address] [place] [address], [place] [address] Sep, [facility] [address] [id number] [address] [place] [address], [place] [address] Sep, [facility] [address] [id number] [address] [place] [address], [place] [address] Sep, [facility] [address] [id number] [address] [place] [address], [place] [address] Sep, [facility] [address] [id number] [address] [place] [address], [place] [address] Sep, [facility] [address] [id number] [address] [place] [address], [place] [address] Sep, [facility] [address] [id number] [address] [place] [address], [place] [address] Sep, [facility] [address] [id number] [address] [place] [address], [place] [address] Aug, [facility] [address] [id number] [address] [place] [address], [place] [address] Aug, [facility] [address] [id number] [address] [place] [address], [place] [address] 29 Aug, 2014 [facility] [address] [id number] [address] [place] [address], [place] [address] 29 Aug, 2014 [facility] [address] [id number] [address] [place] [address], [place] [address] 28 Aug, 2014 [facility] [address] [id number] [address] [place] [address], [place] [address] 28 Aug, 2014 [facility] [address] [id number] [address] [place] [address], [place] [address] Aug, [facility] [address] [id number] [address] [place] [address], [place] [address] 17 Aug, 2014 [facility] [address] [id number] [address] [place] [address], [place] [address] 30 Jul, 2013 [facility] [address] [id number] [address] [place] [address], [place] [address] 30 Jul, 2013 [facility] [address] [id number] [address] [place] [address], [place] [address] 30 Jul, 2013 [facility] [address] [id number] [address] [place] [address], [place] [address] 30 Jul, 2013 [facility] [address] [id number] [address] [place] [address], [place] [address] 25 Sep, 2013 [facility] [address] [id number] [address] [place] [address], [place] [address] 25 Sep, 2013 [facility] [address] [id number] [address] [place] [address], [place] [address] 15 Sep, 2013 [facility] [address] [id number] [address] [place] [address], [place] [address] 15 Sep, 2013 [facility] [address] [id number] [address] [place] [address], [place] [address] 11 Jul, 2013 [facility] [address] [id number] [address] [place] [address], [place] [address] 11 Jul, 2013 [facility] [address] [id number] [facility] [place] [address] Jun, [facility] [address] [id number] [facility] [place] [address] Jun, [facility] [address] [id number] [facility] [place] [address] Jun, [facility] [address] [id number] [address] [place] [address], [place] [address] Jun, [facility] [address] [id number] [address] [place] [address], [place] [address] Jun, [facility] [address] [id number] [address] [place] [address], [place] [address] Jun, [facility] [address] [id number] [address] [place] [address], [place] [address] Jun, [facility] [address] [id number] [address] [place] [address], [place] [address] Jun, [facility] [address] [id number] [address] [place] [address], [place] [address] Jun, [facility] [address] [id number] [address] [place] [address], [place] [id number] Jun, [facility] [address] [id number] [address] [place] [address], [place] [address] Jun, [facility] [address] [id number] [address] [place] [address], [place] [address] Jun, [facility] [address] [id number] [address] [place] [address], [place] [address] Jun, [facility] [address] [id number] [address] [place] [address], [place] [address] Jun, [facility] [address] [id number] [address] [place] [address], [place] [address] Jun, [facility] [address] [id number] [address] [place] [address], [place] [address] Jun, [facility] [address] [id number] [facility] [place] [address] Jun, [facility] [address] [id number] [facility] [place] [address] Jun, [facility] [address] [id number] [facility] [place] [address] Jun, [facility] [address] [id number] [address] [place] [address], [place] [address] Jun, [facility] [address] [id number] [address] [place] [address], [place] [address] Jun, [facility] [address] [id number] [address] [place] [address], [place] [address] Jun, [facility] [address] [id number] [address] [place] [address], [place] [address] May, [facility] [address] [id number] [address] [place] [address], [place] [address] May, [facility] [address] [id number] [address] [place] [address], [place] [address] May, [facility] [address] [id number] [address] [place] [address], [place] [address] May, [facility] [address] [id number] [address] [place] [address], [place] [address] May, [facility] [address] [id number] [address] [place] [address], [place] [address] May, [facility] [address] [id number] [address] [place] [address], [place] [address] May, [facility] [address] [id number] [address] [place] [address], [place] [address] May, [facility] [address] [id number] [address] [place] [address], [place] [id number] May, [facility] [address] [id number] [address] [place] [address], [place] [id number] May, [facility] [address] [id number] [facility] [place] [id number] May, [facility] [address] [id number] [address] [place] [address], [place] [address] May, [facility] [address] [id number] [address] [place] [address], [place] [address] May, [facility] [address] [id number] [address] [place] [address], [place] [id number] Apr, [facility] [address] [id number] [address] [place] [address], [place] [id number] Apr, [facility] [address] [id number] [address] [place] [address], [place] [id number] Apr, [facility] [address] [id number] [address] [place] [address], [place] [id number] Apr, [facility] [address] [id number] [address] [place] [address], [place] [id number] Apr, [facility] [address] [id number] [address] [place] [address], [place] [id number] Apr, [facility] [address] [id number] [address] [place] [address], [place] [address] Apr, [facility] [address] [id number] [address] [place] [address], [place] [address] Apr, [facility] [address] [id number] [address] [place] [address], [place] [id number] Apr, [facility] [address] [id number] [address] [place] [address], [place] [address] March, [facility] [address] [id number] [address] [place] [address], [place] [id number] March, [facility] [address] [id number] [address] [place] [address], [place] [id number] March, [facility] [address] [id number] [facility] [place] [address] March, [facility] [address] [id number] [address] [place] [address], [place] [id number] March, [facility] [address] [id number] [address] [place] [address], [place] [id number] March, [facility] [address] [id number] [address] [place] [address], [place] [id number] March, [facility] [address] [id number] [address] [place] [address], [place] [id number] March, [facility] [address] [id number] [address] [place] [address], [place] [id number] March, [facility] [address] [id number] [address] [place] [address], [place] [id number] March, [facility] [address] [id number] [address] [place] [address], [place] [id number] March, [facility] [address] [id number] [address] [place] [address], [place] [id number] March, [facility] [address] [id number] [address] [place] [address], [place] [id number] March, [facility] [address] [id number] [address] [place] [address], [place] [id number] March, [facility] [address] [id number] [address] [place] [address], [place] [id number] March, [facility] [address] [id number] [address] [place] [address], [place] [id number] March, [facility] [address] [id number] [address] [place] [address], [place] [id number] March, [facility] [address] [id number] [address] [place] [address], [place] [id number] March, [facility] [address] [id number] [address] [place] [address], [place] [id number] March, [facility] [address] [id number] [facility] [place] [id number] March, [facility] [address] [id number] [address] [place] [address], [place] [id number] Feb, [facility] [address] [id number] [address] [place] [address], [place] [id number] Feb, [facility] [address] [id number] [address] [place] [address], [place] [id number] Feb, [facility] [address] [id number] [address] [place] [address], [place] [id number] Feb, [facility] [address] [id number] [address] [place] [address], [place] [address] Feb, [facility] [address] [id number] [address] [place] [address], [place] [id number] Feb, [facility] [address] [id number] [address] [place] [address], [place] [id number] Feb, [facility] [address] [id number] [address] [place] [address], [place] [id number] Feb, [facility] [address] [id number] [address] [place] [address], [place] [address] Jan, [facility] [address] [id number] [address] [place] [address], [place] [id number] Jan, [facility] [address] [id number] [address] [place] [address], [place] [id number] 24 Jan, 2014 [facility] [address] [id number] [address] [place] [address], [place] [id number] 24 Jan, 2014 [facility] [address] [id number] [address] [place] [address], [place] [address] Jan, [facility] [address] [id number] [address] [place] [address], [place] [address] Jan, [facility] [address] [id number] [facility] [place] [address] Jan, [facility] [address] [id number] [address] [place] [address], [place] [address] Jan, [facility] [address] [id number] [address] [place] [address], [place] [address] Jan, [facility] [address] [id number] [address] [place] [address], [place] [address] Jan, [facility] [address] [id number] [address] [place] [address], [place] [address] Dec, [facility] [address] [id number] [address] [place] [address], [place] [address] Dec, [facility] [address] [id number] [address] [place] [address], [place] [address] Dec, [facility] [address] [id number] [address] [place] [address], [place] [address] Dec, [facility] [address] [id number] [address] [place] [address], [place] [address] Dec, [facility] [address] [id number] [address] [place] [address], [place] [address] Dec, [facility] [address] [id number] [address] [place] [address], [place] [address] Dec, [facility] [address] [id number] [address] [place] [address], [place] [address] Dec, [facility] [address] [id number] [address] [place] [address], [place] [address] Nov, [facility] [address] [id number] [address] [place] [address], [place] [address] Nov, [facility] [address] [id number] [address] [place] [address], [place] [address] Nov, [facility] [address] [id number] [address] [place] [address], [place] [address] Nov, [facility] [address] [id number] [address] [place] [address], [place] [address] Nov, [facility] [address] [id number] [address] [place] [address], [place] [address] Nov, [facility] [address] [id number] [address] [place] [address], [place] [address] Nov, [facility] [address] [id number] [address] [place] [address], [place] [address] Nov, [facility] [address] [id number] [address] [place] [address], [place] [address] Nov, [facility] [address] [id number] [address] [place] [address], [place] [address] Nov, [facility] [address] [id number] [address] [place] [address], [place] [address] Nov, [facility] [address] [id number] [address] [place] [address], [place] [address] Nov, [facility] [address] [id number] [address] [place] [address], [place] [address] Nov, [facility] [address] [id number] [address] [place] [address], [place] [address] Oct, [facility] [address] [id number] [address] [place] [address], [place] [address] Oct, [facility] [address] [id number] [address] [place] [address], [place] [address] Oct, [facility] [address] [id number] [address] [place] [address], [place] [address] Oct, [facility] [address] [id number] [address] [place] [address], [place] [address] Oct, [facility] [address] [id number] [address] [place] [address], [place] [address] Oct, [facility] [address] [id number] [address] [place] [address], [place] [address] 18 Oct, 2012 [facility] [address] [id number] [address] [place] [address], [place] [address] 18 Oct, 2013 [facility] [address] [id number] [address] [place] [address], [place] [address] 17 Oct, 2013 [facility] [address] [id number] [address] [place] [address], [place] [address] 17 Oct, 2013 [facility] [address] [id number] [address] [place] [address], [place] [address] 03 Oct, 2013 [facility] [address] [id number] [address] [place] [address], [place] [address] 03 Oct, 2013 [facility] [address] [id number] [address] [place] [address], [place] [address] 02 Oct, 2013 [facility] [address] [id number] [address] [place] [address], [place] [address] 02 Oct, 2013 [facility] [address] [id number] [address] [place] [address], [place] [address] 14 Sep, 2013 [facility] [address] [id number] [address] [place] [address], [place] [address] 14 Sep, 2013 [facility] [address] [id number] [address] [place] [address], [place] [address] 05 Sep, 2013 [facility] [address] [id number] [address] [place] [address], [place] [address] 05 Sep, 2013 [facility] [address] [id number] [address] [place] [address], [place] [address] Sep, [facility] [address] [id number] [address] [place] [address], [place] [address] Sep, [facility] [address] [id number] [address] [place] [address], [place] [address] Sep, [facility] [address] [id number] [address] [place] [address], [place] [address] Sep, [facility] [address] [id number] [address] [place] [address], [place] [address] Sep, [facility] [address] [id number] [address] [place] [address], [place] [address] Sep, [facility] [address] [id number] [address] [place] [address], [place] [address] Aug, [facility] [address] [id number] [address] [place] [address], [place] [address] Aug, [facility] [address] [id number] [address] [place] [address], [place] [address] Aug, [facility] [address] [id number] [address] [place] [address], [place] [address] Aug, [facility] [address] [id number] [address] [place] [address], [place] [address] Aug, [facility] [address] [id number] [address] [place] [address], [place] [address] Aug, [facility] [address] [id number] [address] [place] [address], [place] [address] Aug, [facility] [address] [id number] [address] [place] [id number] Aug, [facility] [address] [id number] [address] [place] [id number] Aug, [facility] [address] [id number] [address] [place] [id number] Aug, [facility] [address] [id number] [address] [place] [address], [place] [address] Aug, [facility] [address] [id number] [address] [place] [address], [place] [address] Aug, [facility] [address] [id number] [address] [place] [id number] Aug, [facility] [address] [id number] [address] [place] [id number] 18 Aug, 2013 [facility] [address] [id number] [address] [place] [address], [place] [address] 17 Aug, 2013 [facility] [address] [id number] [address] [place] [address], [place] [address] 14 Aug, 2013 [facility] [address] [id number] [address] [place] [address], [place] [address] 14 Aug, 2013 [facility] [address] [id number] [address] [place] [address], [place] [address] Aug, [facility] [address] [id number] [address] [place] [address], [place] [address] 20 Jul, 2013 [facility] [address] [id number] [address] [place] [address], [place] [address] 19 Jul, 2013 [facility] [address] [id number] [address] [place] [address], [place] [address] 18 Jul, 2013 [facility] [address] [id number] [address] [place] [address], [place] [address] 11 Jul, 2013 [facility] [address] [id number] [address] [place] [address], [place] [address] Jul, [facility] [address] [id number] [address] [place] [address], [place] [address] Jun, [facility] [address] [id number] [address] [place] [address], [place] [address] Jun, [facility] [address] [id number] [address] [place] [address], [place] [address] Jun, [facility] [address] [id number] [address] [place] [address], [place] [address] 15 Jun, 2013 [facility] [address] [id number] [address] [place] [address], [place] [address] 14 Jun, 2013 [facility] [address] [id number] [address] [place] [address], [place] [address] Jun, [facility] [address] [id number] [address] [place] [address], [place] [address] Jun, [facility] [address] [id number] [address] [place] [address], [place] [address] Jun, [facility] [address] [id number] [address] [place] [address], [place] [address] Jun, [facility] [address] [id number] [address] [place] [address], [place] [address] Jun, [facility] [address] [id number] [address] [place] [address], [place] [address] May, [facility] [address] [id number] [address] [place] [address], [place] [address] May, [facility] [address] [id number] [address] [place] [address], [place] [address] May, [facility] [address] [id number] [address] [place] [address], [place] [address] May, [facility] [address] [id number] [address] [place] [address], [place] [address] May, [facility] [address] [id number] [address] [place] [address], [place] [address] May, [facility] [address] [id number] [address] [place] [address], [place] [address] May, [facility] [address] [id number] [address] [place] [address], [place] [address] May, [facility] [address] [id number] [address] [place] [address], [place] [address] May, [facility] [address] [id number] [address] [place] [address], [place] [address] Apr, [facility] [address] [id number] [address] [place] [address], [place] [address] Apr, [facility] [address] [id number] [address] [place] [address], [place] [address] Apr, [facility] [address] [id number] [address] [place] [address], [place] [address] Apr, [facility] [address] [id number] [address] [place] [address], [place] [address] Apr, [facility] [address] [id number] [address] [place] [address], [place] [address] Apr, [facility] [address] [id number] [address] [place] [address], [place] [address] Apr, [facility] [address] [id number] [address] [place] [address], [place] [address] March, [facility] [address] [id number] [address] [place] [address], [place] [address] Feb, [facility] [address] [id number] [address] [place] [address], [place] [address] Feb, [facility] [address] [id number] [address] [place] [address], [place] [address] Feb, [facility] [address] [id number] [address] [place] [address], [place] [address] Jan, [facility] [address] [id number] [address] [place] [address], [place] [address] Jan, [facility] [address] [id number] [address] [place] [address], [place] [address] Jan, [facility] [address] [id number] [address] [place] [address], [place] [address] 14 Jan, 2013 [facility] [address] [id number] [address] [place] [address], [place] [address] 12 Jan, 2013 [facility] [address] [id number] [address] [place] [address], [place] [address] 08 Jan, 2013 [facility] [address] [id number] [address] [place] [address], [place] [address] 07 Jan, 2013 [facility] [address] [id number] [address] [place] [address], [place] [address] 04 Jan, 2013 [facility] [address] [id number] [address] [place] [address], [place] [address] 28 Dec, 2012 [facility] [address] [id number] [address] [place] [address], [place] [address] 25 Dec, 2012 [facility] [address] [id number] [address] [place] [address], [place] [address] 13 Dec, 2012 [facility] [address] [id number] [address] [place] [address], [place] [address] 11 Dec, 2012 [facility] [address] [id number] [address] [place] [address], [place] [address] 07 Dec, 2012 [facility] [address] [id number] [address] [place] [address], [place] [address] 06 Dec, 2012 [facility] [address] [id number] [address] [place] [address], [place] [address] 05 Dec, 2012 [facility] [address] [id number] [address] [place] [address], [place] [address] Nov, [facility] [address] [id number] [address] [place] [address], [place] [address] 24 Nov, 2012 [facility] [address] [id number] [address] [place] [address], [place] [address] 18 Nov, 2012 [facility] [address] [id number] [address] [place] [address], [place] [address] 15 Nov, 2012 [facility] [address] [id number] [address] [place] [address], [place] [address] Nov, [facility] [address] [id number] [address] [place] [address], [place] [address] Nov, [facility] [address] [id number] [address] [place] [address], [place] [address] 02 Nov, 2012 [facility] [address] [id number] [address] [place] [address], [place] [address] Oct, [facility] [address] [id number] [address] [place] [address], [place] [address] Oct, [facility] [address] [id number] [address] [place] [address], [place] [address] Oct, [facility] [address] [id number] [address] [place] [address], [place] [address] Oct, [facility] [address] [id number] [address] [place] [address], [place] [address] Oct, [facility] [address] [id number] [address] [place] [address], [place] [address] Oct, [facility] [address] [id number] [address] [place] [address], [place] [address] Oct, [facility] [address] [id number] [address] [place] [address], [place] [address] Oct, [facility] [address] [id number] [address] [place] [address], [place] [address] Oct, [facility] [address] [id number] [address] [place] [address], [place] [address] Oct, [facility] [address] [id number] [address] [place] [address], [place] [address] Oct, [facility] [address] [id number] [address] [place] [address], [place] [address] Oct, [facility] [address] [id number] [address] [place] [address], [place] [address] Sep, [facility] [address] [id number] [address] [place] [address], [place] [address] Sep, [facility] [address] [id number] [address] [place] [address], [place] [address] Sep, [facility] [address] [id number] [address] [place] [address], [place] [address] Sep, [facility] [address] [id number] [address] [place] [id number] Sep, [facility] [address] [id number] [address] [place] [address], [place] [address] Sep, [facility] [address] [id number] [address] [place] [address] Sep, [facility] [address] [id number] [address] [place] [id number] Sep, [facility] [address] [id number] [address] [place] [id number] Sep, [facility] [address] [id number] [address] [place] [id number] Sep, [facility] [address] [id number] [address] [place] [id number] Sep, [facility] [address] [id number] [address] [place] [id number] Aug, [facility] [address] [id number] [address] [place] [id number] Aug, [facility] [address] [id number] [address] [place] [id number] Aug, [facility] [address] [id number] [address] [place] [address] Aug, [facility] [address] [id number] [address] [place] [id number] Aug, [facility] [address] [id number] [address] [place] [id number] Aug, [facility] [address] [id number] [address] [place] [id number] Aug, [facility] [address] [id number] [address] [place] [id number] Aug, [facility] [address] [id number] [address] [place] [id number] Aug, [facility] [address] [id number] [facility] [place] [address] Aug, [facility] [address] [id number] [facility] [place] [address] 22 Jul, 2012 [facility] [address] [id number] [address] [place] [address], [place] [id number] Jul, [facility] [address] [id number] [address] [place] [address], [place] [id number] Jul, [facility] [address] [id number] [address] [place] [address], [place] [address] Jul, [facility] [address] [id number] [address] [place] [address], [place] [id number] Jun, [facility] [address] [id number] [address] [place] [address], [place] [id number] Jun, [facility] [address] [id number] [address] [place] [address], [place] [address] Jun, [facility] [address] [id number] [address] [place] [address], [place] [id number] Jun, [facility] [address] [id number] [address] [place] [address], [place] [id number] Jun, [facility] [address] [id number] [address] [place] [address], [place] [id number] Jun, [facility] [address] [id number] [address] [place] [address], [place] [id number] Jun, [facility] [address] [id number] [address] [place] [address], [place] [address] May, [facility] [address] [id number] [address] [place] [address], [place] [id number] May, [facility] [address] [id number] [address] [place] [address], [place] [address] May, [facility] [address] [id number] [address] [place] [address], [place] [address] May, [facility] [address] [id number] [address] [place] [address], [place] [id number] May, [facility] [address] [id number] [address] [place] [address], [place] [id number] Apr, [facility] [address] [id number] [address] [place] [address], [place] [id number] Apr, [facility] [address] [id number] [address] [place] [address], [place] [id number] Apr, [facility] [address] [id number] [address] [place] [address], [place] [id number] Apr, [facility] [address] [id number] [address] [place] [address], [place] [id number] Apr, [facility] [address] [id number] [address] [place] [address], [place] [address] March, [facility] [address] [id number] [address] [place] [address], [place] [id number] March, [facility] [address] [id number] [address] [place] [address], [place] [address] March, [facility] [address] [id number] [address] [place] [address], [place] [id number] March, [facility] [address] [id number] [address] [place] [address], [place] [id number] March, [facility] [address] [id number] [address] [place] [address], [place] [id number] March, [facility] [address] [id number] [address] [place] [address], [place] [address] March, [facility] [address] [id number] [address] [place] [address], [place] [id number] March, [facility] [address] [id number] [address] [place] [address], [place] [id number] March, [facility] [address] [id number] [address] [place] [address], [place] [id number] March, [facility] [address] [id number] [address] [place] [address], [place] [id number] 30 Feb, 2012 [facility] [address] [id number] [address] [place] [address], [place] [id number] Feb, [facility] [address] [id number] [address] [place] [address], [place] [address] Feb, [facility] [address] [id number] [address] [place] [address], [place] [id number] Feb, [facility] [address] [id number] [address] [place] [address], [place] [id number] Feb, [facility] [address] [id number] [address] [place] [address], [place] [id number] Feb, [facility] [address] [id number] [address] [place] [address], [place] [id number] Feb, [facility] [address] [id number] [address] [place] [address], [place] [id number] Feb, [facility] [address] [id number] [address] [place] [address], [place] [id number] Feb, [facility] [address] [id number] [address] [place] [address], [place] [id number] Jan, [facility] [address] [id number] [address] [place] [address], [place] [address] Jan, [facility] [address] [id number] [address] [place] [address], [place] [id number] 05 Jan, 2012 [facility] [address] [id number] [address] [place] [address], [place] [id number] Jan, [facility] [address] [id number] [address] [place] [address], [place] [id number] Dec, [facility] [address] [id number] [address] [place] [address], [place] [id number] Dec, [facility] [address] [id number] [address] [place] [id number] Nov, [facility] [address] [id number] [address] [place] [id number] Nov, [facility] [address] [id number] [address] [place] [id number] Nov, [facility] [address] [id number] [address] [place] [id number] Nov, [facility] [address] [id number] [address] [place] [id number] Nov, [facility] [address] [id number] [address] [place] [id number] Oct, [facility] [address] [id number] [address] [place] [id number] Oct, [facility] [address] [id number] [address] [place], [place] [id number] Oct, [facility] [address] [id number] [address] [place] [id number] Oct, [facility] [address] [id number] [address] [place] [id number] Oct, [facility] [address] [id number] [address] [place] [id number] Oct, [facility] [address] [id number] [address] [place] [phone] Oct, [facility] [address] [id number] [address] [place] [phone] Oct, [facility] [address] [id number] [address] [place] [phone] Sep, IMMUNIZATIONS No Known Immunizations SOCIAL HISTORY Never Assessed REASON FOR VISIT PLAN OF CARE VITAL SIGNS Height 62 in 2013-10-20 Weight 174.38 lbs 2013-10-20 Temperature 97.8 degrees Fahrenheit 2013-10-20 Heart Rate 100 bpm 2013-10-20 Respiratory Rate 28 2013-10-20 Blood pressure systolic 196 mmHg 2013-10-20 Blood pressure diastolic 84 mmHg 2013-10-20 MEDICATIONS Unknown Medications RESULTS No Results PROCEDURES [...] History No Surgical history information Hospitalization History [facility]- Urosepsis, ab d pain and fever, discharged 11/27/2017 11/26/2017 Hospitalization History [facility] [place]- Went Unrepsonsive, Hit head 2017 Hospitalization History [facility] [place]- Back Pain 05/05/ 8
--- OUTSIDE RECORDS SUMMARY | 2020-06-18 15:36 | XMS REPORT ---
Author Author Sanjuanita Abdul Doctor Organization [facility] Address Unknown Phone Unavailable Care Team Providers Care Fundraising Officer Name Role Phone Migration, Doctor Unavailable Unavailable PROBLEMS Type Condition ICD9-CM Code SEH93-YS Code Onset Dates Condition S tatus SNOMED Code Problem Hypertension I10 Active 9207590 3 Problem Hyperlipidemia E78.5 Active 69011 004 Problem Coronary artery disease I25.10 Active 11891543 Problem Low back pain M54.5 Active 169937 009 Problem Other chronic pain G89.29 Active 8 3531844 Problem Ventral hernia without obstruction or gangrene K43 .9 Active 682860059 Problem Type 2 diabetes mellitus wit hout complication, without long-term current use of insulin E11.9 Active 454279945 Problem Anxiety F41.9 Active 21132254 Problem Peripheral vascular disease I73.9 Ac tive 348276745 Problem Insomnia G47.00 Active 410100030 Problem Microcytic anemia D50.9 Active 23 9334962 Problem Pharyngeal dysphagia R13.13 Active 54206814037101 Problem Other iron deficiency anemia D50.8 A ctive 29729067 Problem Reactive depression F32.9 Active 96905000 Problem Paroxysmal atrial fibrillation I48.0 Active 704093785 Problem Postmenopausal atrophic vaginitis N95.2 Active 81164413 Problem Encounter for suprapubic catheter care Z43.5 Active 176483349 Problem Neurogenic bladder N31.9 Active 3 [id number] ALLERGIES No Information ENCOUNTERS Encounter Location Date Diagnosis [place] [address] [address] [facility] [id number] [address] [place] [address] 13 May, 2020 Strain of right shoulder, scherer bsequent encounter S46.911D and Anxiety F41.9 [place] [address] [address] [facility] [id number] [address] [place] [address] 17 Apr, 2020 Anxiety F41.9 and Strain of right shoulder, subsequent encounter S46.911D [place] [address] [address] [facility] [id number] [address] [place] [address] Apr, [facility] [address] [id number] [address] [place] [address] March, [facility] [address] [id number] [address] [place] [address] March, Anxiety F41.9 and Strain of right shoulder, subsequent encounter S46.911D [facility] [address] [id number] [address] [place] [address] Feb, Anxiety F41.9 and Strain of right shoulder, subsequent encounter S46.911D [place] [address] [id number] [address] [place] [address] Jan, Anxiety F41.9 and Strain of right shoulder, subsequent encounter S46.911D [place] [address] [id number] [address] [place] [address] Jan, Via [facility] [address] [place] [id number] Jan, Neurogenic bladder N31.9 [place] [address] [id number] [address] [place] [address] Dec, [place] [address] [id number] [address] [place] [address] Dec, [place] [address] [id number] [address] [place] [address] Dec, Anxiety F41.9 and Strain of right shoulder, subsequent encounter S46.911D [place] [address] [id number] [address] [place] [address] 10 Dec, 2019 Other iron deficiency anemia D50.8 [place] [address] [id number] [address] [place] [address] Dec, Via [facility] [address] [place] [id number] Dec, Encounter for suprapubic catheter care Z 43.5 and Microcytic anemia D50.9 [facility] [address] [id number] [address] [place] [address] Dec, [facility] [address] [id number] [address] [place] [address] Nov, Anxiety F41.9 and Strain of right shoulder, subsequent encounter S46.911D [place] [address] [id number] [address] [place] [address] Nov, Hypertension I10 Via [facility] [employer] [address] [place] [id number] Nov, Pneumonia of both lungs due to infectiou s organism, unspecified part of lung J18.9 and Suprapubic catheter Z93.59 [place] [address] [id number] [address] [place] [address] Nov, Hypertension I10 and Reactiv e depression F32.9 [place] [address] [id number] [address] [place] [address] Oct, Strain of right shoulder, scherer bsequent encounter S46.911D and Anxiety F41.9 [place] [address] [id number] [address] [place] [address] Oct, Via [employer] [address] [place] [phone] Oct, Suprapubic catheter Z93.59 and Candidias is, intertriginous B37.2 [place] [address] [id number] [address] [place] [address] Oct, Suprapubic catheter Z93.59 [place] [address] [id number] [address] [place] [address] Oct, Anxiety F41.9 and Strain of right shoulder, subsequent encounter S46.911D [place] [address] [id number] [address] [place] [address] Sep, [place] [address] [id number] [address] [place] [address] Sep, [facility] [address] [id number] [address] [place] [address] Sep, Via [facility] [address] [place] [phone] Sep, Suprapubic catheter Z93.59 [facility] [address] [id number] [address] [place] [address] Sep, Anxiety F41.9 and Strain of right shoulder, subsequent encounter S46.911D [facility] [address] [id number] [address] [place] [address] Aug, [facility] [address] [id number] [address] [place] [address] Aug, [facility] [address] [id number] [address] [place] [address] Aug, Anxiety F41.9 and Strain of right shoulder, subsequent encounter S46.911D Via [facility] [address] [place] [id number] Aug, Suprapubic catheter Z93.59 [facility] [address] [id number] [address] [place] [address] Jul, Strain of right shoulder, scherer bsequent encounter S46.911D and Anxiety F41.9 [facility] [address] [id number] [address] [place] [address] Jul, Anxiety F41.9 [facility] [address] [id number] [address] [place] [address] Jun, [facility] [address] [id number] [address] [place] [address] Jun, [facility] [address] [id number] [address] [place] [address] Jun, [facility] [address] [id number] [address] [place] [address] Jun, Strain of right shoulder, scherer bsequent encounter S46.911D [place] [address] [id number] [address] [place] [address] Jun, Strain of right shoulder, scherer bsequent encounter S46.911D [place] [address] [id number] [address] [place] [address] Jun, Anxiety F41.9 Via [facility] [address] [place] [id number] Jun, Neurogenic bladder N31.9 and Anxiety F41 .9 Via [facility] [address] [place] [id number] May, Anxiety F41.9 [place] [address] [id number] [address] [place] [address] May, Dysuria R30.0 [place] [address] [id number] [address] [place] [address] May, Strain of right shoulder, scherer bsequent encounter S46.911D and Anxiety F41.9 [place] [address] [id number] [address] [place] [address] Apr, Via [facility] [address] [place] [id number] Apr, Strain of right shoulder, subsequent enc ounter S46.911D [place] [address] [id number] [address] [place] [address] 14 Apr, 2019 Strain of right shoulder, scherer bsequent encounter S46.911D and Anxiety F41.9 Via [facility] [address] [place] [id number] 13 Apr, 2019 Type 2 diabetes mellitus without complic ation, without long-term current use of insulin E11.9 and Neurogenic bladder N31.9 [facility] [address] [place] [id number] Apr, Strain of right shoulder, subsequent enc ounter S46.911D ; History of GI bleed Z87.19 ; Neurogenic bladder N31.9 and Reactive depression F32.9 [place] [address] [id number] [address] [place] [address] 10 Apr, 2019 Acute pain of left shoulder M25.512 [facility] [address] [id number] [address] [place] [address] 07 Apr, 2019 [facility] [address] [id number] [address] [place] [address] Apr, Anxiety F41.9 and 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 Via [facility] [address] [place] [id number] March, Gastrointestinal hemorrhage associated w ith acute gastritis K29.01 [facility] [address] [id number] [address] [place] [address] March, Via [employer] [address] [place] [id number] March, Bronchitis J40 [facility] [address] [id number] [address] [place] [address] March, Cough R05 [facility] [address] [id number] [address] [place] [address] March, Other chronic pain G89.29 [facility] [address] [id number] [address] [place] [address] March, Anxiety F41.9 [facility] [address] [id number] [address] [place] [address] March, [facility] [address] [id number] [address] [place] [address] Feb, Other chronic pain G89.29 [facility] [address] [id number] [address] [place] [address] Feb, Anxiety F41.9 [facility] [address] [id number] [address] [place] [address] Feb, Other chronic pain G89.29 Via [facility] [address] [place] [id number] Feb, Neurogenic bladder N31.9 and Suprapubic catheter Z93.59 [facility] [address] [id number] [address] [place] [address] Jan, Anxiety F41.9 [facility] [address] [id number] [address] [place] [address] Dec, Anxiety F41.9 [facility] [address] [id number] [address] [place] [address] Dec, Other chronic pain G89.29 an d Anxiety F41.9 [facility] [address] [id number] [address] [place] [address] Dec, Via [employer] [address] [place] [id number] Dec, Neurogenic bladder N31.9 and Suprapubic catheter Z93.59 [facility] [address] [id number] [address] [place] [address] Nov, Other chronic pain G89.29 an d Anxiety F41.9 [facility] [address] [id number] [address] [place] [address] Nov, Via [employer] [address] [place] [id number] Nov, Suprapubic catheter Z93.59 [facility] [address] [id number] [address] [place] [address] Oct, Other chronic pain G89.29 an d Anxiety F41.9 [facility] [address] [id number] [address] [place] [address] Oct, [facility] [address] [id number] [address] [place] [address] Oct, Suprapubic catheter Z93.59 [facility] [address] [id number] [address] [place] [address] Oct, Via [employer] [address] [place] [id number] Oct, [facility] [address] [id number] [address] [place] [address] Oct, Anxiety F41.9 [facility] [address] [id number] [address] [place] [address] Oct, Anxiety F41.9 Via [facility] [address] [place] [id number] Oct, Other chronic pain G89.29 [facility] [address] [id number] [address] [place] [address] Sep, Other chronic pain G89.29 Via [facility] [employer] [address] [place] [id number] Sep, Suprapubic catheter Z93.59 and Cervicalg ia M54.2 [facility] [address] [id number] [address] [place] [address] Sep, [facility] [address] [id number] [address] [place] [address] Sep, [facility] [address] [id number] [address] [place] [address] Sep, Via [facility] [address] [place] [id number] Aug, Cystitis N30.90 [facility] [address] [id number] [address] [place] [address] Aug, [facility] [address] [id number] [address] [place] [address] Aug, Other chronic pain G89.29 [facility] [address] [id number] [address] [place] [address] Aug, Via [facility] [employer] [address] [place] [id number] Aug, Encounter for suprapubic catheter care Z 43.5 [facility] [address] [id number] [address] [place] [address] Jul, Via [facility] [address] [place] [id number] Jul, [facility] [address] [id number] [address] [place] [address] Jul, Other chronic pain G89.29 [facility] [address] [id number] [address] [place] [address] Jul, [facility] [address] [id number] [address] [place] [address] Jul, Via [facility] [address] [place] [id number] Jun, Postmenopausal atrophic vaginitis N95.2 [facility] [address] [id number] [address] [place] [address] Jun, Other chronic pain G89.29 [facility] [address] [id number] [address] [place] [address] Jun, Via [facility] [address] [place] [id number] May, Anxiety F41.9 ; Type 2 diabetes mellitus without complication, without long-term current use of insulin E11.9 ; Hypertension I10 ; Low back pain M54.5 ; Paroxysmal atrial fibrillation I48.0 and 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 [facility] [address] [id number] [address] [place] [address] May, Other chronic pain G89.29 Via [facility] [address] [place] [id number] May, Low back pain M54.5 [facility] [address] [id number] [address] [place] [address] May, [facility] [address] [id number] [address] [place] [address] Apr, Other chronic pain G89.29 [facility] [address] [id number] [address] [place] [address] Apr, [facility] [address] [id number] [address] [place] [address] Apr, Via [facility] [address] [place] [id number] Apr, Closed compression fracture of L3 lumbar vertebra with routine healing, subsequent encounter S32.030D [facility] [address] [place] [id number] Apr, Low back pain M54.5 [facility] [address] [place] [id number] Apr, Coccydynia M53.3 [facility] [address] [id number] [address] [place] [address] March, [facility] [address] [id number] [address] [place] [address] March, Other chronic pain G89.29 [facility] [address] [id number] [address] [place] [address] March, [facility] [address] [id number] [address] [place] [address] March, [facility] [address] [id number] [address] [place] [address] Feb, [facility] [address] [id number] [address] [place] [address] Feb, Other chronic pain G89.29 Via [facility] [address] [place] [id number] Feb, Other chronic pain G89.29 and Anxiety F4 1.9 [facility] [address] [id number] [address] [place] [address] Feb, [facility] [address] [id number] [address] [place] [address] Jan, [facility] [address] [id number] [address] [place] [address] Jan, [facility] [address] [id number] [address] [place] [address] Jan, [facility] [address] [facility] [id number] [address] [place] [address] Jan, [facility] [address] [facility] [id number] [address] [place] [address] Dec, Via [facility] [employer] [address] [place] [id number] Dec, Peripheral vascular disease I73.9 ; 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 ; Other chronic pain G89.29 ; Anxiety F41.9 ; Reactive depression F32.9 ; Insomnia G47.00 and Type 2 diabetes mellitus without complication, without long-term current use of insulin E11.[address] [id number] [address] Nov, [facility] [address] [id number] [id number] Nov, Anxiety F41.9 [facility] [address] [facility] [id number] [address] [place] [address] Nov, [facility] [address] [id number] [place] [id number] Nov, Anxiety F41.9 Via [facility] [address] [place] [id number] Nov, Status post surgery Z98.890 ; Confused R 41.0 ; Anxiety F41.9 and Other chronic pain G89.29 [facility] [address] [id number] [place] [id number] Nov, Other chronic pain G89.29 [facility] [address] [facility] [id number] [address] [place] [address] Oct, [facility] [address] [id number] [place] [id number] 07 Oct, 2017 Other chronic pain G89.29 [facility] [address] [facility] [id number] [address] [place] [address] Oct, Anxiety F41.9 [facility] [address] [id number] [place] [id number] Sep, Other chronic pain G89.29 [facility] [address] [id number] [place] [id number] Sep, Via [facility] [address] [place] [id number] Aug, Dysuria R30.0 and Anxiety F41.9 [facility] [address] [id number] [address] [place] [address] Aug, [facility] [address] [id number] [place] [id number] Aug, Other chronic pain G89.29 [facility] [address] [facility] [id number] [address] [place] [address] Jul, Other chronic pain G89.29 [facility] [address] [id number] [place] [id number] Jun, [facility] [address] [id number] [place] [id number] Jun, Other chronic pain G89.29 [facility] [address] [id number] [address] [place] [address] Jun, [facility] [address] [id number] [address] [place] [address] May, Other chronic pain G89.29 [facility] [address] [id number] [address] [place] [address] Apr, Other chronic pain G89.29 Via [facility] [address] [place] [id number] Apr, Reactive depression F32.9 and Pharyngeal dysphagia R13.13 [facility] [address] [id number] [address] [place] [address] Apr, Urinary tract infection with out hematuria, site unspecified N39.0 [facility] [address] [id number] [address] [place] [address] March, Other chronic pain G89.29 [facility] [address] [id number] [address] [place] [address] Feb, Other chronic pain G89.29 [facility] [address] [facility] [id number] [address] [place] [address] Feb, [facility] [address] [id number] [place] [id number] Feb, [facility] [employer] [address] [place] [id number] Feb, Dysuria R30.0 and Ventral hernia without obstruction or gangrene K43.9 [place] [address] [address] [facility] [id number] [address] [place] [address] Jan, Other chronic pain G89.29 [place] [address] [id number] [place] [id number] Dec, Other chronic pain G89.29 [place] [address] [id number] [address] [place] [address] Nov, Other chronic pain G89.29 Via [facility] [employer] [address] [place] [id number] Nov, Lymphadenitis I88.9 [facility] [address] [facility] [id number] [address] [place] [address] Nov, Other chronic pain G89.29 [facility] [address] [id number] [address] [place] [address] Nov, [facility] [address] [id number] [place] [id number] Nov, Other chronic pain G89.29 [facility] [address] [place] [id number] Oct, Low back pain M54.5 ; Hypertension I10 a nd Type 2 diabetes mellitus without complication, without long-term current use of insulin E11.9 [facility] [address] [id number] [address] [place] [id number] Oct, [facility] [address] [id number] [address] [place] [id number] Oct, [facility] [address] [id number] [address] [place] [id number] Oct, [facility] [address] [id number] [address] [place] [id number] Oct, [facility] [address] [id number] [address] [place] [id number] Sep, [facility] [address] [id number] [address] [place] [phone] Sep, [facility] [address] [id number] [address] [place] [id number] Aug, Other chronic pain G89.29 [facility] [address] [id number] [address] [place] [phone] Jul, [facility] [address] [id number] [address] [place] [id number] Jul, [facility] [address] [id number] [address] [place] [id number] Jul, [facility] [address] [id number] [address] [place] [phone] Jun, [facility] [address] [id number] [address] [place] [phone] Jun, [facility] [address] [place] [id number] Jun, Low back pain M54.5 ; Other chronic pain G89.29 and Coronary artery disease I25.10 [facility] [address] [id number] [address] [place] [phone] Jun, [facility] [address] [id number] [address] [place] [id number] 27 May, 2016 [facility] [address] [id number] [address] [place] [id number] 15 May, 2016 [facility] [address] [id number] [address] [place] [id number] May, Other chronic pain G89.29 [facility] [address] [id number] [address] [place] [id number] May, [facility] [address] [id number] [address] [place] [id number] 28 Apr, 2016 [facility] [address] [id number] [address] [place] [id number] 17 Apr, 2016 Acute cystitis without hemat uria N30.00 [facility] [address] [id number] [address] [place] [id number] 16 Apr, 2016 Acute cystitis without hemat uria N30.00 ; Coronary artery disease I25.10 ; Low back pain M54.5 and Other chronic pain G89.29 [facility] [address] [id number] [address] [place] [address] Apr, Other chronic pain G89.29 [facility] [address] [id number] [address] [place] [address] March, Other chronic pain G89.29 [facility] [address] [id number] [address] [place] [address] 18 Feb, 2016 [facility] [address] [id number] [address] [place] [address] 15 Feb, 2016 Arthritis M19.90 [facility] [address] [id number] [address] [place] [address] Feb, [facility] [address] [id number] [address] [place] [address] 30 Jan, 2016 [facility] [address] [id number] [address] [place] [address] Jan, [facility] [address] [id number] [address] [place] [address] Jan, Other chronic pain G89.29 [facility] [address] [id number] [address] [place] [address] Jan, Hypertension I10 ; Coronary artery disease I25.10 and Insomnia G47.00 [facility] [address] [id number] [address] [place] [address] Jan, [facility] [address] [id number] [address] [place] [address] Dec, Right hip pain M25.551 [facility] [address] [id number] [address] [place] [address] Dec, [facility] [address] [id number] [address] [place] [address] Dec, [facility] [address] [id number] [address] [place] [address] Dec, [facility] [address] [id number] [address] [place] [address] Dec, Other chronic pain G89.29 [facility] [address] [id number] [address] [place] [address] Dec, [facility] [address] [id number] [address] [place] [address] Nov, [facility] [address] [id number] [address] [place] [address] Nov, Other chronic pain G89.29 [facility] [address] [id number] [address] [place] [address] Nov, Right hip pain M25.551 and C oronary artery disease I25.10 [facility] [address] [id number] [address] [place] [address] Nov, Other chronic pain G89.29 [facility] [address] [id number] [address] [place] [address] Oct, [facility] [address] [id number] [address] [place] [address] Oct, [facility] [address] [id number] [address] [place] [address] Sep, [facility] [address] [id number] [address] [place] [address] Sep, [facility] [address] [id number] [address] [place] [address] Aug, [facility] [address] [id number] [address] [place] [address] Aug, Hypertension I10 ; Coronary artery disease I25.10 and Arthritis M19.90 [facility] [address] [id number] [address] [place] [address] Jun, [facility] [address] [id number] [address] [place] [address] Jun, Essential hypertension, jayson gn 401.1 ; Other chronic pain 338.29 and Chronic airway obstruction, not elsewhere classified 496 [facility] [address] [id number] [address] [place] [address] Jun, [facility] [address] [id number] [address] [place] [address] Jun, [facility] [address] [id number] [address] [place] [address] Jun, [facility] [address] [id number] [address] [place] [address] May, [facility] [address] [id number] [address] [place] [address] May, [facility] [address] [id number] [address] [place] [address] Apr, [facility] [address] [id number] [address] [place] [address] [place] [address] Apr, [facility] [address] [id number] [address] [place] [address], [place] [address] Apr, [facility] [address] [id number] [address] [place] [address], [place] [address] March, [facility] [address] [id number] [address] [place] [address], [place] [address] March, [facility] [address] [id number] [address] [place] [address], [place] [address] March, [facility] [address] [id number] [address] [place] [address], [place] [address] March, [facility] [address] [id number] [address] [place] [address], [place] [address] March, Sialadenitis 527.2 [facility] [address] [id number] [address] [place] [address], [place] [address] Feb, [facility] [address] [id number] [address] [place] [address], [place] [address] Feb, [facility] [address] [id number] [address] [place] [address], [place] [address] Feb, [facility] [address] [id number] [address] [place] [address], [place] [address] Feb, [facility] [address] [id number] [address] [place] [address], [place] [address] Feb, [facility] [address] [id number] [address] [place] [address], [place] [address] Jan, [facility] [address] [id number] [address] [place] [address], [place] [address] Jan, [facility] [address] [id number] [address] [place] [address], [place] [address] Jan, [facility] [address] [id number] [address] [place] [address], [place] [address] Jan, [facility] [address] [id number] [address] [place] [address], [place] [address] Jan, [facility] [address] [id number] [address] [place] [address], [place] [address] Jan, [facility] [address] [id number] [address] [place] [address], [place] [address] Dec, [facility] [address] [id number] [address] [place] [address], [place] [address] Dec, [facility] [address] [id number] [address] [place] [address], [place] [address] Dec, [facility] [address] [id number] [address] [place] [address], [place] [address] Dec, [facility] [address] [id number] [address] [place] [address], [place] [address] Dec, [facility] [address] [id number] [address] [place] [address], [place] [address] Dec, [facility] [address] [id number] [address] [place] [address], [place] [address] Nov, [facility] [address] [id number] [address] [place] [address], [place] [address] Nov, [facility] [address] [id number] [address] [place] [address], [place] [address] Nov, [facility] [address] [id number] [address] [place] [address], [place] [address] Nov, [facility] [address] [id number] [address] [place] [address], [place] [address] Nov, [facility] [address] [id number] [address] [place] [address], [place] [address] Nov, [facility] [address] [id number] [address] [place] [address], [place] [address] Nov, [facility] [address] [id number] [address] [place] [address], [place] [address] 16 Nov, 2014 [facility] [address] [id number] [address] [place] [address], [place] [address] Nov, [facility] [address] [id number] [address] [place] [address], [place] [address] Nov, [facility] [address] [id number] [address] [place] [address], [place] [address] Nov, [facility] [address] [id number] [address] [place] [address], [place] [address] Nov, [facility] [address] [id number] [address] [place] [address], [place] [address] Nov, [facility] [address] [id number] [address] [place] [address], [place] [address] Nov, [facility] [address] [id number] [address] [place] [address], [place] [address] Oct, [facility] [address] [id number] [address] [place] [address], [place] [address] Oct, [facility] [address] [id number] [address] [place] [address], [place] [address] Oct, [facility] [address] [id number] [address] [place] [address], [place] [address] 18 Oct, 2014 [facility] [address] [id number] [address] [place] [address], [place] [address] 18 Oct, 2014 [facility] [address] [id number] [address] [place] [address], [place] [address] 17 Oct, 2014 [facility] [address] [id number] [address] [place] [address], [place] [address] 17 Oct, 2014 [facility] [address] [id number] [address] [place] [address], [place] [address] 10 Oct, 2014 [facility] [address] [id number] [address] [place] [address], [place] [address] Oct, [facility] [address] [id number] [address] [place] [address], [place] [address] Sep, [facility] [address] [id number] [address] [place] [address], [place] [address] Sep, [facility] [address] [id number] [address] [place] [address], [place] [address] Sep, [facility] [address] [id number] [address] [place] [address], [place] [address] Sep, [facility] [address] [id number] [address] [place] [address], [place] [address] Sep, [facility] [address] [id number] [address] [place] [address], [place] [address] Sep, [facility] [address] [id number] [address] [place] [address], [place] [address] Sep, [facility] [address] [id number] [address] [place] [address], [place] [address] Sep, [facility] [address] [id number] [address] [place] [address], [place] [address] Sep, [facility] [address] [id number] [address] [place] [address], [place] [address] Sep, [facility] [address] [id number] [address] [place] [address], [place] [address] Sep, [facility] [address] [id number] [address] [place] [address], [place] [address] Sep, [facility] [address] [id number] [address] [place] [address], [place] [address] Aug, [facility] [address] [id number] [address] [place] [address], [place] [address] Aug, [facility] [address] [id number] [address] [place] [address], [place] [address] Aug, [facility] [address] [id number] [address] [place] [address] 29 Aug, 2014 [facility] [address] [id number] [address] [place] [address], [place] [address] Aug, [facility] [address] [id number] [address] [place] [address], [place] [address] 28 Aug, 2014 [facility] [address] [id number] [address] [place] [address], [place] [address] 17 Aug, 2014 [facility] [address] [id number] [address] [place] [address], [place] [address] 17 Aug, 2014 [facility] [address] [id number] [address] [place] [address], [place] [address] 30 Jul, 2013 [facility] [address] [id number] [address] [place] [address], [place] [address] 30 Jul, 2013 [facility] [address] [id number] [address] [place] [address], [place] [address] 30 Jul, 2013 [facility] [address] [id number] [address] [place] [address], [place] [address] 30 Jul, 2013 [facility] [address] [id number] [address] [place] [address], [place] [address] 25 Jul, 2013 [facility] [address] [id number] [address] [place] [address], [place] [address] 25 Jul, 2013 [facility] [address] [id number] [address] [place] [address], [place] [address] 15 Jul, 2013 [facility] [address] [id number] [address] [place] [address], [place] [address] 15 Jul, 2013 [facility] [address] [id number] [address] [place] [address], [place] [address] 11 Jul, 2014 [facility] [address] [id number] [address] [place] [address], [place] [address] 11 Jul, 2013 [facility] [address] [id number] [address] [place] [address], [place] [address] 29 Jun, 2014 [facility] [address] [id number] [facility] [place] [address] Jun, [facility] [address] [id number] [facility] [place] [address] Jun, [facility] [address] [id number] [facility] [place] [address] Jun, [facility] [address] [id number] [address] [place] [address], [place] [address] Jun, [facility] [address] [id number] [address] [place] [address], [place] [address] Jun, [facility] [address] [id number] [address] [place] [address], [place] [address] Jun, [facility] [address] [id number] [address] [place] [address], [place] [address] Jun, [facility] [address] [id number] [address] [place] [address], [place] [address] Jun, [facility] [address] [id number] [address] [place] [address], [place] [address] Jun, [facility] [address] [id number] [address] [place] [address], [place] [address] Jun, [facility] [address] [id number] [address] [place] [address], [place] [address] Jun, [facility] [address] [id number] [address] [place] [address], [place] [address] Jun, [facility] [address] [id number] [address] [place] [address], [place] [address] Jun, [facility] [address] [id number] [address] [place] [address], [place] [address] Jun, [facility] [address] [id number] [address] [place] [address], [place] [address] Jun, [facility] [address] [id number] [address] [place] [address], [place] [address] Jun, [facility] [address] [id number] [facility] [place] [address] Jun, [facility] [address] [id number] [address] [place] [address], [place] [address] Jun, [facility] [address] [id number] [facility] [place] [address] Jun, [facility] [address] [id number] [address] [place] [address], [place] [address] Jun, [facility] [address] [id number] [address] [place] [address], [place] [address] Jun, [facility] [address] [id number] [address] [place] [address], [place] [address] May, [facility] [address] [id number] [address] [place] [address], [place] [address] May, [facility] [address] [id number] [address] [place] [address], [place] [address] May, [facility] [address] [id number] [address] [place] [address], [place] [address] May, [facility] [address] [id number] [address] [place] [address], [place] [address] May, [facility] [address] [id number] [address] [place] [address], [place] [address] May, [facility] [address] [id number] [address] [place] [address], [place] [address] May, [facility] [address] [id number] [address] [place] [address], [place] [address] May, [facility] [address] [id number] [address] [place] [address], [place] [address] May, [facility] [address] [id number] [address] [place] [address], [place] [address] May, [facility] [address] [id number] [address] [place] [address], [place] [address] May, [facility] [address] [id number] [facility] [place] [address] May, [facility] [address] [id number] [address] [place] [address], [place] [address] May, [facility] [address] [id number] [address] [place] [address], [place] [address] Apr, [facility] [address] [id number] [address] [place] [address], [place] [address] Apr, [facility] [address] [id number] [address] [place] [address], [place] [address] Apr, [facility] [address] [id number] [address] [place] [address], [place] [address] Apr, [facility] [address] [id number] [address] [place] [address], [place] [address] Apr, [facility] [address] [id number] [address] [place] [address], [place] [address] Apr, [facility] [address] [id number] [address] [place] [address], [place] [address] Apr, [facility] [address] [id number] [address] [place] [address], [place] [address] Apr, [facility] [address] [id number] [address] [place] [address], [place] [address] Apr, [facility] [address] [id number] [address] [place] [address], [place] [address] March, [facility] [address] [id number] [address] [place] [address], [place] [address] March, [facility] [address] [id number] [address] [place] [address], [place] [address] March, [facility] [address] [id number] [address] [place] [address], [place] [address] March, [facility] [address] [id number] [address] [place] [address], [place] [address] March, [facility] [address] [id number] [address] [place] [address], [place] [address] March, [facility] [address] [id number] [address] [place] [address], [place] [address] March, [facility] [address] [id number] [address] [place] [address], [place] [address] March, [facility] [address] [id number] [address] [place] [address], [place] [address] March, [facility] [address] [id number] [address] [place] [address], [place] [address] March, [facility] [address] [id number] [address] [place] [address], [place] [address] March, [facility] [address] [id number] [address] [place] [address], [place] [address] March, [facility] [address] [id number] [address] [place] [address], [place] [address] March, [facility] [address] [id number] [address] [place] [address], [place] [address] March, [facility] [address] [id number] [address] [place] [address], [place] [address] March, [facility] [address] [id number] [address] [place] [address], [place] [address] March, [facility] [address] [id number] [address] [place] [address], [place] [address] March, [facility] [address] [id number] [address] [place] [address], [place] [address] March, [facility] [address] [id number] [address] [place] [address], [place] [address] March, [facility] [address] [id number] [address] [place] [address], [place] [address] March, [facility] [address] [id number] [facility] [place] [address] Feb, [facility] [address] [id number] [facility] [place] [address] Feb, [facility] [address] [id number] [facility] [place] [address] Feb, [facility] [address] [id number] [address] [place] [address], [place] [address] Feb, [facility] [address] [id number] [facility] [place] [address] Feb, [facility] [address] [id number] [address] [place] [address], [place] [address] Feb, [facility] [address] [id number] [address] [place] [address], [place] [address] Feb, [facility] [address] [id number] [address] [place] [address], [place] [address] Feb, [facility] [address] [id number] [address] [place] [address], [place] [address] Jan, [facility] [address] [id number] [address] [place] [address], [place] [address] Jan, [facility] [address] [id number] [address] [place] [address], [place] [address] Jan, [facility] [address] [id number] [address] [place] [address], [place] [address] 24 Jan, 2014 [facility] [address] [id number] [address] [place] [address], [place] [address] Jan, [facility] [place] [facility] [address] [id number] [address] [place] [address], [place] [address] Jan, [facility] [place] [facility] [address] [id number] [address] [place] [address], [place] [address] Jan, [facility] [place] [facility] [address] [id number] [address] [place] [address] Jan, [facility] [address] [id number] [address] [place] [address], [place] [address] Jan, [facility] [address] [id number] [address] [place] [address], [place] [address] Jan, [facility] [address] [id number] [address] [place] [address], [place] [address] Dec, [facility] [address] [id number] [address] [place] [address], [place] [address] Dec, [facility] [address] [id number] [address] [place] [address], [place] [address] Dec, [facility] [address] [id number] [address] [place] [address], [place] [address] Dec, [facility] [place] [facility] [address] [id number] [address] [place] [address], [place] [address] Dec, [facility] [address] [id number] [address] [place] [address], [place] [address] Dec, [facility] [place] [facility] [address] [id number] [address] [place] [address], [place] [address] Dec, [facility] [address] [id number] [address] [place] [address], [place] [address] Dec, [facility] [place] [facility] [address] [id number] [address] [place] [address], [place] [address] Nov, [facility] [place] [facility] [address] [id number] [address] [place] [address], [place] [address] Nov, [facility] [place] [address] [id number] [address] [place] [address], [place] [address] Nov, [facility] [place] [facility] [address] [id number] [address] [place] [address], [place] [address] Nov, [facility] [place] [facility] [address] [id number] [address] [place] [address], [place] [address] Nov, [facility] [address] [id number] [address] [place] [address], [place] [address] Nov, [facility] [address] [address] [id number] [address] [place] [address], [place] [address] Nov, [facility] [address] [id number] [address] [place] [address], [place] [address] Nov, [facility] [address] [id number] [address] [place] [address], [place] [address] Nov, [facility] [address] [id number] [address] [place] [address], [place] [address] Nov, [facility] [address] [id number] [address] [place] [address], [place] [address] Nov, [facility] [address] [id number] [address] [place] [address], [place] [address] Nov, [facility] [address] [id number] [address] [place] [address], [place] [address] Nov, [facility] [address] [id number] [address] [place] [address], [place] [address] Oct, [facility] [address] [id number] [address] [place] [address], [place] [address] Oct, [facility] [address] [id number] [address] [place] [address], [place] [address] Oct, [facility] [address] [id number] [address] [place] [address], [place] [address] Oct, [facility] [address] [id number] [address] [place] [address], [place] [address] Oct, [facility] [address] [id number] [address] [place] [address], [place] [address] Oct, [facility] [address] [id number] [address] [place] [address], [place] [address] Oct, [facility] [address] [id number] [address] [place] [address], [place] [address] 18 Oct, 2012 [facility] [address] [id number] [address] [place] [address], [place] [address] 17 Oct, 2012 [facility] [address] [id number] [address] [place] [address], [place] [address] 17 Oct, 2013 [facility] [address] [id number] [address] [place] [address], [place] [address] 03 Oct, 2012 [facility] [address] [id number] [address] [place] [address], [place] [address] 03 Oct, 2013 [facility] [address] [id number] [address] [place] [address], [place] [address] 02 Oct, 2013 [facility] [address] [id number] [address] [place] [address], [place] [address] 02 Oct, 2013 [facility] [address] [id number] [address] [place] [address], [place] [address] 14 Sep, 2013 [facility] [address] [id number] [address] [place] [address], [place] [address] 14 Sep, 2013 [facility] [address] [id number] [address] [place] [address], [place] [address] 05 Sep, 2013 [facility] [address] [id number] [address] [place] [address], [place] [address] 05 Sep, 2013 [facility] [address] [id number] [address] [place] [address], [place] [address] Sep, [facility] [address] [id number] [address] [place] [address], [place] [address] Sep, [facility] [address] [id number] [address] [place] [address], [place] [address] Sep, [facility] [address] [id number] [address] [place] [address], [place] [address] Sep, [facility] [address] [id number] [address] [place] [address], [place] [address] Sep, [facility] [address] [id number] [address] [place] [address], [place] [address] Sep, [facility] [address] [id number] [address] [place] [address], [place] [address] Aug, [facility] [address] [id number] [address] [place] [address], [place] [address] Aug, [facility] [address] [id number] [address] [place] [address], [place] [address] Aug, [facility] [address] [id number] [address] [place] [address], [place] [address] Aug, [facility] [address] [id number] [address] [place] [address], [place] [address] Aug, [facility] [address] [id number] [address] [place] [address], [place] [address] Aug, [facility] [address] [id number] [address] [place] [address], [place] [address] Aug, [facility] [address] [id number] [address] [place] [address], [place] [address] Aug, [facility] [address] [id number] [address] [place] [address] Aug, [facility] [address] [id number] [address] [place] [address] Aug, [facility] [address] [id number] [address] [place] [address] Aug, [facility] [address] [id number] [address] [place] [address], [place] [address] Aug, [facility] [address] [id number] [address] [place] [address], [place] [address] Aug, [facility] [address] [id number] [address] [place] [address] Aug, [facility] [address] [id number] [address] [place] [address] 17 Aug, 2013 [facility] [address] [id number] [address] [place] [address], [place] [address] 14 Aug, 2013 [facility] [address] [id number] [address] [place] [address], [place] [address] 14 Aug, 2013 [facility] [address] [id number] [address] [place] [address], [place] [address] Aug, [facility] [address] [id number] [address] [place] [address], [place] [address] 20 Jul, 2013 [facility] [address] [id number] [address] [place] [address], [place] [address] 19 Jul, 2013 [facility] [address] [id number] [address] [place] [address], [place] [address] 18 Jul, 2013 [facility] [address] [id number] [address] [place] [address], [place] [address] 11 Jul, 2013 [facility] [address] [id number] [address] [place] [address], [place] [address] 11 Jul, 2013 [facility] [address] [id number] [address] [place] [address], [place] [address] 28 Jun, 2013 [facility] [address] [id number] [address] [place] [address], [place] [address] Jun, [facility] [address] [id number] [address] [place] [address], [place] [address] Jun, [facility] [address] [id number] [address] [place] [address], [place] [address] 15 Jun, 2013 [facility] [address] [id number] [address] [place] [address], [place] [address] 14 Jun, 2013 [facility] [address] [id number] [address] [place] [address], [place] [address] Jun, [facility] [address] [id number] [address] [place] [address], [place] [address] Jun, [facility] [address] [id number] [address] [place] [address], [place] [address] Jun, [facility] [address] [id number] [address] [place] [address], [place] [address] Jun, [facility] [address] [id number] [address] [place] [address], [place] [address] Jun, [facility] [address] [id number] [address] [place] [address], [place] [address] May, [facility] [address] [id number] [address] [place] [address], [place] [address] May, [facility] [address] [id number] [address] [place] [address], [place] [address] May, [facility] [address] [id number] [address] [place] [address], [place] [address] May, [facility] [address] [id number] [address] [place] [address], [place] [address] May, [facility] [address] [id number] [address] [place] [address], [place] [address] May, [facility] [address] [id number] [address] [place] [address], [place] [address] May, [facility] [address] [id number] [address] [place] [address], [place] [address] May, [facility] [address] [id number] [address] [place] [address], [place] [address] May, [facility] [address] [id number] [address] [place] [address], [place] [address] Apr, [facility] [address] [id number] [address] [place] [address], [place] [address] Apr, [facility] [address] [id number] [address] [place] [address], [place] [address] Apr, [facility] [address] [id number] [address] [place] [address], [place] [address] Apr, [facility] [address] [id number] [facility] [place] [address] Apr, [facility] [address] [id number] [address] [place] [address], [place] [address] Apr, [facility] [address] [id number] [address] [place] [address], [place] [address] Apr, [facility] [address] [id number] [address] [place] [address], [place] [address] March, [facility] [address] [id number] [address] [place] [address], [place] [address] Feb, [facility] [address] [id number] [address] [place] [address], [place] [address] Feb, [facility] [address] [id number] [address] [place] [address], [place] [address] Feb, [facility] [address] [id number] [address] [place] [address], [place] [address] Jan, [facility] [address] [id number] [address] [place] [address], [place] [address] Jan, [facility] [address] [id number] [address] [place] [address], [place] [address] Jan, [facility] [address] [id number] [address] [place] [address], [place] [address] 14 Jan, 2013 [facility] [address] [id number] [address] [place] [address], [place] [address] 12 Jan, 2013 [facility] [address] [id number] [address] [place] [address], [place] [address] 08 Jan, 2013 [facility] [address] [id number] [address] [place] [address], [place] [address] 07 Jan, 2013 [facility] [address] [id number] [address] [place] [address], [place] [address] 04 Jan, 2013 [facility] [address] [id number] [address] [place] [address], [place] [address] 28 Dec, 2012 [facility] [address] [id number] [address] [place] [address], [place] [address] 25 Dec, 2012 [facility] [address] [id number] [address] [place] [address], [place] [address] 13 Dec, 2012 [facility] [address] [id number] [address] [place] [address], [place] [address] 11 Dec, 2012 [facility] [address] [id number] [address] [place] [address], [place] [address] 07 Dec, 2012 [facility] [address] [id number] [address] [place] [address], [place] [address] 06 Dec, 2012 [facility] [address] [id number] [address] [place] [address], [place] [address] 05 Dec, 2012 [facility] [address] [id number] [address] [place] [address], [place] [address] Nov, [facility] [address] [id number] [address] [place] [address], [place] [address] 24 Nov, 2012 [facility] [address] [id number] [address] [place] [address], [place] [address] 18 Nov, 2012 [facility] [address] [id number] [address] [place] [address], [place] [address] 15 Nov, 2012 [facility] [address] [id number] [address] [place] [address], [place] [address] Nov, [facility] [address] [id number] [address] [place] [address], [place] [address] Nov, [facility] [address] [id number] [address] [place] [address], [place] [address] Nov, [facility] [address] [id number] [address] [place] [address], [place] [address] Oct, [facility] [address] [id number] [address] [place] [address], [place] [address] Oct, [facility] [address] [id number] [address] [place] [address], [place] [address] Oct, [facility] [address] [id number] [address] [place] [address], [place] [address] Oct, [facility] [address] [id number] [address] [place] [address], [place] [address] Oct, [facility] [address] [id number] [address] [place] [address], [place] [address] Oct, [facility] [address] [id number] [address] [place] [address], [place] [address] Oct, [facility] [address] [id number] [address] [place] [address], [place] [address] Oct, [facility] [address] [id number] [address] [place] [address], [place] [address] Oct, [facility] [address] [id number] [address] [place] [address], [place] [address] Oct, [facility] [address] [id number] [address] [place] [address], [place] [address] Oct, [facility] [address] [id number] [address] [place] [address], [place] [address] Oct, [facility] [address] [id number] [address] [place] [address], [place] [address] Sep, [facility] [address] [id number] [address] [place] [address], [place] [address] Sep, [facility] [address] [id number] [address] [place] [address], [place] [address] Sep, [facility] [address] [id number] [address] [place] [address], [place] [address] Sep, [facility] [address] [id number] [address] [place] [address], [place] [address] Sep, [facility] [address] [id number] [address] [place] [address] Sep, [facility] [address] [id number] [address] [place] [address], [place] [address] Sep, [facility] [address] [id number] [address] [place] [id number] Sep, [facility] [address] [id number] [address] [place] [address] Sep, [facility] [address] [id number] [address] [place] [address] Sep, [facility] [address] [id number] [address] [place] [address], [place] [address] Sep, [facility] [address] [id number] [address] [place] [id number] Aug, [facility] [address] [id number] [address] [place] [id number] Aug, [facility] [address] [id number] [address] [place] [address] Aug, [facility] [address] [id number] [address] [place] [id number] Aug, [facility] [address] [id number] [address] [place] [address] Aug, [facility] [address] [id number] [address] [place] [id number] Aug, [facility] [address] [id number] [address] [place] [address] Aug, [facility] [address] [id number] [address] [place] [address] Aug, [facility] [address] [id number] [address] [place] [id number] Aug, [facility] [address] [id number] [address] [place] [id number] Aug, [facility] [address] [id number] [facility] [place] [address] 22 Jul, 2011 [facility] [address] [id number] [facility] [place] [address] 20 Jul, 2011 [facility] [address] [id number] [facility] [place] [address] 10 Jul, 2012 [facility] [address] [id number] [address] [place] [address], [place] [address] 06 Jul, 2012 [facility] [address] [id number] [address] [place] [address], [place] [address] 30 Jun, 2012 [facility] [address] [id number] [address] [place] [address], [place] [address] Jun, [facility] [address] [id number] [address] [place] [address], [place] [address] 16 Jun, 2012 [facility] [address] [id number] [address] [place] [address], [place] [address] Jun, [facility] [address] [id number] [address] [place] [address], [place] [address] Jun, [facility] [address] [id number] [address] [place] [address], [place] [address] Jun, [facility] [address] [id number] [address] [place] [address], [place] [id number] Jun, [facility] [address] [id number] [address] [place] [address], [place] [address] May, [facility] [address] [id number] [address] [place] [address], [place] [address] May, [facility] [address] [id number] [address] [place] [address], [place] [address] May, [facility] [address] [id number] [address] [place] [address], [place] [address] May, [facility] [address] [id number] [address] [place] [address] [address] May, [facility] [address] [id number] [address] [place] [address], [place] [address] Apr, [facility] [address] [id number] [address] [place] [address], [place] [address] Apr, [facility] [address] [id number] [address] [place] [address], [place] [address] Apr, [facility] [address] [id number] [address] [place] [address], [place] [address] Apr, [facility] [address] [id number] [address] [place] [address], [place] [address] Apr, [facility] [address] [id number] [address] [place] [address], [place] [address] March, [facility] [address] [id number] [address] [place] [address], [place] [address] March, [facility] [address] [id number] [address] [place] [address], [place] [address] March, [facility] [address] [id number] [address] [place] [address], [place] [address] March, [facility] [address] [id number] [address] [place] [address], [place] [address] March, [facility] [address] [id number] [address] [place] [address], [place] [address] March, [facility] [address] [id number] [address] [place] [address], [place] [address] March, [facility] [address] [id number] [address] [place] [address], [place] [address] March, [facility] [address] [id number] [address] [place] [address], [place] [address] March, [facility] [address] [id number] [address] [place] [address], [place] [address] March, [facility] [address] [id number] [address] [place] [address], [place] [id number] 30 Feb, 2012 [facility] [address] [id number] [address] [place] [address], [place] [id number] 27 Feb, 2012 [facility] [address] [id number] [address] [place] [address], [place] [address] 26 Feb, 2012 [facility] [address] [id number] [address] [place] [address], [place] [address] Feb, [facility] [address] [id number] [address] [place] [address], [place] [address] Feb, [facility] [address] [id number] [address] [place] [address], [place] [address] Feb, [facility] [address] [id number] [address] [place] [address], [place] [address] Feb, [facility] [address] [id number] [address] [place] [address], [place] [address] Feb, [facility] [address] [id number] [address] [place] [address], [place] [address] Feb, [facility] [address] [id number] [address] [place] [address], [place] [address] 08 Jan, 2012 [facility] [address] [id number] [address] [place] [address], [place] [address] Jan, [facility] [address] [id number] [address] [place] [address], [place] [id number] 05 Jan, 2012 [facility] [address] [id number] [address] [place] [address], [place] [address] Jan, [facility] [address] [id number] [address] [place] [address], [place] [address] Dec, [facility] [address] [id number] [address] [place] [address], [place] [address] Dec, [facility] [address] [id number] [address] [place] [address], [place] [address] Nov, [facility] [address] [id number] [address] [place] [id number] Nov, [facility] [address] [id number] [address] [place] [id number] Nov, [facility] [address] [id number] [address] [place] [id number] Nov, [facility] [address] [id number] [address] [place] [id number] Nov, [facility] [address] [id number] [address] [place] [id number] Oct, [facility] [address] [id number] [address] [place] [id number] Oct, [facility] [address] [id number] [address] [place] [id number] Oct, [facility] [address] [id number] [address] [place] [id number] Oct, [facility] [address] [id number] [address] [place] [id number] Oct, [facility] [address] [id number] [address] [place] [id number] Oct, [facility] [address] [id number] [address] [place] [id number] Oct, [facility] [address] [id number] [address] [place] [id number] Oct, [facility] [address] [id number] [address] [place] [id number] Sep, IMMUNIZATIONS No Known Immunizations SOCIAL HISTORY [...] information Hospitalization History [facility]- Urosepsis, ab d pain and fever, discharged 11/27/2017 11/26/2017 Hospitalization History [facility]- Went Unrepsonsive, Hit head 2017 Hospitalization History ED [facility]or- Back Pain 8
--- OUTSIDE RECORDS SUMMARY | 2020-06-18 15:37 | XMS REPORT ---
Author Author Sanjuanita Abdul Doctor Organization [facility] Address Unknown Phone Unavailable Care Team Providers Care Arch Support Technician Name Role Phone Migration, Doctor Unavailable Unavailable PROBLEMS Type Condition ICD9-CM Code IEC12-ME Code Onset Dates Condition S tatus SNOMED Code Problem Hypertension I10 Active 0599644 3 Problem Hyperlipidemia E78.5 Active 99997 004 Problem Coronary artery disease I25.10 Active 36046475 Problem Low back pain M54.5 Active 121186 009 Problem Other chronic pain G89.29 Active 8 1398203 Problem Ventral hernia without obstruction or gangrene K43 .9 Active 984309150 Problem Type 2 diabetes mellitus wit hout complication, without long-term current use of insulin E11.9 Active 145686648 Problem Anxiety F41.9 Active 62477097 Problem Peripheral vascular disease I73.9 Ac tive 582527077 Problem Insomnia G47.00 Active 764709155 Problem Microcytic anemia D50.9 Active 23 7694799 Problem Pharyngeal dysphagia R13.13 Active 37917767167378 Problem Other iron deficiency anemia D50.8 A ctive 92384100 Problem Reactive depression F32.9 Active 27199255 Problem Paroxysmal atrial fibrillation I48.0 Active 016945344 Problem Postmenopausal atrophic vaginitis N95.2 Active 05910459 Problem Encounter for suprapubic catheter care Z43.5 Active 291874948 Problem Neurogenic bladder N31.9 Active 3 [id number] ALLERGIES No Information ENCOUNTERS Encounter Location Date Diagnosis [place] [address] [facility] [id number] [address] [place] [address] 13 May, 2020 Strain of right shoulder, scherer bsequent encounter S46.911D and Anxiety F41.9 [place] [address] [facility] [id number] [address] [place] [address] 17 Apr, 2020 Anxiety F41.9 and Strain of right shoulder, subsequent encounter S46.911D [place] [address] [facility] [id number] [address] [place] [address] Apr, [facility] [address] [id number] [address] [place] [address] March, [facility] [address] [id number] [address] [place] [address] March, Anxiety F41.9 and Strain of right shoulder, subsequent encounter S46.911D [facility] [address] [id number] [address] [place] [address] Feb, Anxiety F41.9 and Strain of right shoulder, subsequent encounter S46.911D [place] [address] [id number] [address] [place] [address] Jan, Anxiety F41.9 and Strain of right shoulder, subsequent encounter S46.911D [place] [address] [id number] [address] [place] [address] Jan, Via [facility] [address] [place] [id number] Jan, Neurogenic bladder N31.9 [place] [address] [id number] [address] [place] [address] Dec, [place] [address] [id number] [address] [place] [address] Dec, [place] [address] [id number] [address] [place] [address] Dec, Anxiety F41.9 and Strain of right shoulder, subsequent encounter S46.911D [place] [address] [id number] [address] [place] [address] 10 Dec, 2019 Other iron deficiency anemia D50.8 [place] [address] [id number] [address] [place] [address] Dec, Via [facility] [address] [place] [id number] Dec, Encounter for suprapubic catheter care Z 43.5 and Microcytic anemia D50.9 [facility] [address] [id number] [address] [place] [address] Dec, [facility] [address] [id number] [address] [place] [address] Nov, Anxiety F41.9 and Strain of right shoulder, subsequent encounter S46.911D [place] [address] [id number] [address] [place] [address] Nov, Hypertension I10 Via [facility] [employer] [address] [place] [id number] Nov, Pneumonia of both lungs due to infectiou s organism, unspecified part of lung J18.9 and Suprapubic catheter Z93.59 [place] [address] [id number] [address] [place] [address] Nov, Hypertension I10 and Reactiv e depression F32.9 [place] [address] [id number] [address] [place] [address] Oct, Strain of right shoulder, scherer bsequent encounter S46.911D and Anxiety F41.9 [place] [address] [id number] [address] [place] [address] Oct, Via [employer] [facility] [employer] [address] [place] [id number] Oct, Suprapubic catheter Z93.59 and Candidias is, intertriginous B37.2 [place] [address] [id number] [address] [place] [address] Oct, Suprapubic catheter Z93.59 [place] [address] [id number] [address] [place] [address] Oct, Anxiety F41.9 and Strain of right shoulder, subsequent encounter S46.911D [place] [address] [id number] [address] [place] [address] Sep, [place] [address] [id number] [address] [place] [address] Sep, [facility] [address] [id number] [address] [place] [address] Sep, Via [facility] [address] [place] [id number] Sep, Suprapubic catheter Z93.59 [facility] [address] [id number] [address] [place] [address] Sep, Anxiety F41.9 and Strain of right shoulder, subsequent encounter S46.911D [facility] [address] [id number] [address] [place] [address] Aug, [facility] [address] [id number] [address] [place] [address] Aug, [facility] [address] [id number] [address] [place] [address] Aug, Anxiety F41.9 and Strain of right shoulder, subsequent encounter S46.911D Via [facility] [address] [place] [id number] Aug, Suprapubic catheter Z93.59 [facility] [address] [id number] [address] [place] [address] Jul, Strain of right shoulder, scherer bsequent encounter S46.911D and Anxiety F41.9 [facility] [address] [id number] [address] [place] [address] Jul, Anxiety F41.9 [facility] [address] [id number] [address] [place] [address] Jun, [facility] [address] [id number] [address] [place] [address] Jun, [facility] [address] [id number] [address] [place] [address] Jun, [facility] [address] [id number] [address] [place] [address] Jun, Strain of right shoulder, scherer bsequent encounter S46.911D [place] [address] [id number] [address] [place] [address] Jun, Strain of right shoulder, scherer bsequent encounter S46.911D [place] [address] [id number] [address] [place] [address] Jun, Anxiety F41.9 Via [facility] [address] [place] [id number] Jun, Neurogenic bladder N31.9 and Anxiety F41 .9 Via [facility] [address] [place] [id number] May, Anxiety F41.9 [place] [address] [id number] [address] [place] [address] May, Dysuria R30.0 [place] [address] [id number] [address] [place] [address] May, Strain of right shoulder, scherer bsequent encounter S46.911D and Anxiety F41.9 [place] [address] [id number] [address] [place] [address] Apr, Via [facility] [address] [place] [id number] Apr, Strain of right shoulder, subsequent enc ounter S46.911D [place] [address] [id number] [address] [place] [address] 14 Apr, 2019 Strain of right shoulder, scherer bsequent encounter S46.911D and Anxiety F41.9 Via [facility] [address] [place] [id number] 13 Apr, 2019 Type 2 diabetes mellitus without complic ation, without long-term current use of insulin E11.9 and Neurogenic bladder N31.9 Via [facility] [address] [place] [id number] Apr, Strain of right shoulder, subsequent enc ounter S46.911D ; History of GI bleed Z87.19 ; Neurogenic bladder N31.9 and Reactive depression F32.9 [place] [address] [id number] [address] [place] [address] 10 Apr, 2019 Acute pain of left shoulder M25.512 [facility] [address] [id number] [address] [place] [address] 07 Apr, 2019 [facility] [address] [id number] [address] [place] [address] Apr, Anxiety F41.9 [address] 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 Via [employer] [address] [place] [id number] March, Gastrointestinal hemorrhage associated w ith acute gastritis K29.01 [facility] [address] [id number] [address] [place] [address] March, Via [employer] [address] [place] [id number] March, Bronchitis J40 [facility] [address] [id number] [address] [place] [address] March, Cough R05 [facility] [address] [id number] [address] [place] [address] March, Other chronic pain G89.29 [facility] [address] [id number] [address] [place] [address] March, Anxiety F41.9 [facility] [address] [id number] [address] [place] [address] March, [facility] [address] [id number] [address] [place] [address] Feb, Other chronic pain G89.29 [facility] [address] [id number] [address] [place] [address] Feb, Anxiety F41.9 [facility] [address] [id number] [address] [place] [address] Feb, Other chronic pain G89.29 Via [employer] [address] [place] [id number] Feb, Neurogenic bladder N31.9 and Suprapubic catheter Z93.59 [facility] [address] [id number] [address] [place] [address] Jan, Anxiety F41.9 [facility] [address] [id number] [address] [place] [address] Dec, Anxiety F41.9 [facility] [address] [id number] [address] [place] [address] Dec, Other chronic pain G89.29 an d Anxiety F41.9 [facility] [address] [id number] [address] [place] [address] Dec, Via [employer] [facility] [address] [place] [id number] Dec, Neurogenic bladder N31.9 and Suprapubic catheter Z93.59 [facility] [address] [id number] [address] [place] [address] Nov, Other chronic pain G89.29 an d Anxiety F41.9 [facility] [address] [id number] [address] [place] [address] Nov, Via [facility] [facility] [address] [place] [id number] Nov, Suprapubic catheter Z93.59 [facility] [address] [id number] [address] [place] [address] Oct, Other chronic pain G89.29 an d Anxiety F41.9 [facility] [address] [id number] [address] [place] [address] Oct, [facility] [address] [id number] [address] [place] [address] Oct, Suprapubic catheter Z93.59 [facility] [address] [id number] [address] [place] [address] Oct, Via [employer] [address] [place] [id number] Oct, [facility] [address] [id number] [address] [place] [address] Oct, Anxiety F41.9 [facility] [address] [id number] [address] [place] [address] Oct, Anxiety F41.9 Via [facility] [address] [place] [id number] Oct, Other chronic pain G89.29 [facility] [address] [id number] [address] [place] [address] Sep, Other chronic pain G89.29 Via [facility] [address] [place] [id number] Sep, Suprapubic catheter Z93.59 and Cervicalg ia M54.2 [facility] [address] [id number] [address] [place] [address] Sep, [facility] [address] [id number] [address] [place] [address] Sep, [facility] [address] [id number] [address] [place] [address] Sep, Via [facility] [address] [place] [id number] Aug, Cystitis N30.90 [facility] [address] [id number] [address] [place] [address] Aug, [facility] [address] [id number] [address] [place] [address] Aug, Other chronic pain G89.29 [facility] [address] [id number] [address] [place] [address] Aug, Via [facility] [address] [place] [id number] Aug, Encounter for suprapubic catheter care Z 43.5 [facility] [address] [id number] [address] [place] [address] Jul, Via [employer] [address] [place] [id number] Jul, [facility] [address] [id number] [address] [place] [address] Jul, Other chronic pain G89.29 [facility] [address] [id number] [address] [place] [address] Jul, [facility] [address] [id number] [address] [place] [address] Jul, Via [employer] [address] [place] [id number] Jun, Postmenopausal atrophic vaginitis N95.2 [facility] [address] [id number] [address] [place] [address] Jun, Other chronic pain G89.29 [facility] [address] [id number] [address] [place] [address] Jun, Via [employer] [address] [place] [id number] May, Anxiety F41.9 ; Type 2 diabetes mellitus without complication, without long-term current use of insulin E11.9 ; Hypertension I10 ; Low back pain M54.5 ; Paroxysmal atrial fibrillation I48.0 and 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 [facility] [address] [id number] [address] [place] [address] May, Other chronic pain G89.29 Via [employer] [address] [place] [id number] May, Low back pain M54.5 [facility] [address] [id number] [address] [place] [address] May, [facility] [address] [id number] [address] [place] [address] Apr, Other chronic pain G89.29 [facility] [address] [id number] [address] [place] [address] Apr, [facility] [address] [id number] [address] [place] [address] Apr, Via [employer] [address] [place] [id number] Apr, Closed compression fracture of L3 lumbar vertebra with routine healing, subsequent encounter S32.030D [facility] [employer] [address] [place] [address] Apr, Low back pain M54.5 [facility] [employer] [address] [place] [address] Apr, Coccydynia M53.3 [facility] [address] [id number] [address] [place] [address] March, [facility] [address] [id number] [address] [place] [address] March, Other chronic pain G89.29 [facility] [address] [id number] [address] [place] [address] March, [facility] [address] [id number] [address] [place] [address] March, [facility] [address] [id number] [address] [place] [address] Feb, [facility] [address] [id number] [address] [place] [address] Feb, Other chronic pain G89.29 Via [employer] [address] [place] [address] Feb, Other chronic pain G89.29 and Anxiety F4 1.9 [facility] [address] [id number] [address] [place] [address] Feb, [facility] [address] [id number] [address] [place] [address] Jan, [facility] [address] [id number] [address] [place] [address] Jan, [facility] [address] [id number] [address] [place] [phone] Jan, [facility] [address] [facility] [id number] [address] [place] [address] Jan, [facility] [address] [facility] [id number] [address] [place] [address] Dec, Via [facility] [employer] [address] [place] [address] Dec, Peripheral vascular disease I73.9 ; 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 ; Other chronic pain G89.29 ; Anxiety F41.9 ; Reactive depression F32.9 ; Insomnia G47.00 and Type 2 diabetes mellitus without complication, without long-term current use of insulin E11.[address] [id number] [address] Nov, [facility] [address] [id number] [id number] Nov, Anxiety F41.9 [facility] [address] [facility] [id number] [address] [place] [address] Nov, [facility] [address] [id number] [place] [id number] Nov, Anxiety F41.9 Via [facility] [address] [place] [id number] Nov, Status post surgery Z98.890 ; Confused R 41.0 ; Anxiety F41.9 and Other chronic pain G89.29 [facility] [address] [id number] [place] [id number] Nov, Other chronic pain G89.29 [facility] [address] [facility] [id number] [address] [place] [address] Oct, [facility] [address] [id number] [place] [id number] 07 Oct, 2017 Other chronic pain G89.29 [facility] [address] [facility] [id number] [address] [place] [address] Oct, Anxiety F41.9 [facility] [address] [id number] [place] [id number] Sep, Other chronic pain G89.29 [facility] [address] [id number] [place] [id number] Sep, Via [facility] [address] [place] [id number] Aug, Dysuria R30.0 and Anxiety F41.9 [facility] [address] [id number] [address] [place] [address] Aug, [facility] [address] [id number] [place] [id number] Aug, Other chronic pain G89.29 [facility] [address] [facility] [id number] [address] [place] [address] Jul, Other chronic pain G89.29 [facility] [address] [id number] [place] [id number] Jun, [facility] [address] [id number] [place] [id number] Jun, Other chronic pain G89.29 [facility] [address] [id number] [address] [place] [address] Jun, [facility] [address] [id number] [address] [place] [address] May, Other chronic pain G89.29 [facility] [address] [id number] [address] [place] [address] Apr, Other chronic pain G89.29 Via [facility] [address] [place] [id number] Apr, Reactive depression F32.9 and Pharyngeal dysphagia R13.13 [facility] [address] [id number] [address] [place] [address] Apr, Urinary tract infection with out hematuria, site unspecified N39.0 [facility] [address] [id number] [address] [place] [address] March, Other chronic pain G89.29 [facility] [address] [id number] [address] [place] [address] Feb, Other chronic pain G89.29 [facility] [address] [facility] [id number] [address] [place] [address] Feb, [facility] [address] [id number] [place] [id number] Feb, Via [employer] [facility] [employer] [address] [place] [id number] Feb, Dysuria R30.0 and Ventral hernia without obstruction or gangrene K43.9 [place] [address] [facility] [id number] [address] [place] [phone] Jan, Other chronic pain G89.29 [place] [address] [id number] [place] [id number] Dec, Other chronic pain G89.29 [place] [address] [id number] [address] [place] [phone] Nov, Other chronic pain G89.29 Via [facility] [employer] [address] [place] [id number] Nov, Lymphadenitis I88.9 [facility] [address] [facility] [id number] [address] [place] [phone] Nov, Other chronic pain G89.29 [facility] [address] [id number] [address] [place] [phone] Nov, [facility] [address] [id number] [place] [id number] Nov, Other chronic pain G89.29 Via [facility] [address] [place] [id number] Oct, Low back pain M54.5 ; Hypertension I10 a nd Type 2 diabetes mellitus without complication, without long-term current use of insulin E11.9 [facility] [address] [id number] [address] [place] [phone] Oct, [facility] [address] [id number] [address] [place] [phone] Oct, [facility] [address] [id number] [address] [place] [phone] Oct, [facility] [address] [id number] [address] [place] [phone] Oct, [facility] [address] [id number] [address] [place] [phone] Sep, [facility] [address] [id number] [address] [place] [phone] Sep, [facility] [address] [id number] [address] [place] [phone] Aug, Other chronic pain G89.29 [facility] [address] [id number] [address] [place] [phone] Jul, [facility] [address] [id number] [address] [place] [phone] Jul[facility] [facility] [address] [id number] [address] [place] [address] Jul, [facility] [address] [id number] [address] [place] [address] Jun, [facility] [address] [id number] [address] [place] [address] Jun, Via [facility] [address] [place] [id number] Jun, Low back pain M54.5 ; Other chronic pain G89.29 and Coronary artery disease I25.10 [facility] [address] [id number] [address] [place] [address] Jun, [facility] [address] [id number] [address] [place] [address] 27 May, 2016 [facility] [address] [id number] [address] [place] [address] 15 May, 2016 [facility] [address] [id number] [address] [place] [address] May, Other chronic pain G89.29 [facility] [address] [id number] [address] [place] [address] May, [facility] [address] [id number] [address] [place] [address] 28 Apr, 2016 [facility] [address] [id number] [address] [place] [address] 17 Apr, 2016 Acute cystitis without hemat uria N30.00 [facility] [address] [id number] [address] [place] [address] 16 Apr, 2016 Acute cystitis without hemat uria N30.00 ; Coronary artery disease I25.10 ; Low back pain M54.5 and Other chronic pain G89.29 [facility] [address] [id number] [address] [place] [address] Apr, Other chronic pain G89.29 [facility] [address] [id number] [address] [place] [address] March, Other chronic pain G89.29 [facility] [address] [id number] [address] [place] [address] 18 Feb, 2016 [facility] [address] [id number] [address] [place] [address] 15 Feb, 2016 Arthritis M19.90 [facility] [address] [id number] [address] [place] [address] Feb, [facility] [address] [id number] [address] [place] [address] 30 Jan, 2016 [facility] [address] [id number] [address] [place] [address] Jan, [facility] [address] [id number] [address] [place] [address] Jan, Other chronic pain G89.29 [facility] [address] [id number] [address] [place] [address] Jan, Hypertension I10 ; Coronary artery disease I25.10 and Insomnia G47.00 [facility] [address] [id number] [address] [place] [address] Jan, [facility] [address] [id number] [address] [place] [address] Dec, Right hip pain M25.551 [facility] [address] [id number] [address] [place] [address] Dec, [facility] [address] [id number] [address] [place] [address] Dec, [facility] [address] [id number] [address] [place] [address] Dec, [facility] [address] [id number] [address] [place] [address] Dec, Other chronic pain G89.29 [facility] [address] [id number] [address] [place] [address] Dec, [facility] [address] [id number] [address] [place] [address] Nov, [facility] [address] [id number] [address] [place] [address] Nov, Other chronic pain G89.29 [facility] [address] [id number] [address] [place] [address] Nov, Right hip pain M25.551 and C oronary artery disease I25.10 [facility] [address] [id number] [address] [place] [address] Nov, Other chronic pain G89.29 [facility] [address] [id number] [address] [place] [address] Oct, [facility] [address] [id number] [address] [place] [address] Oct, [facility] [address] [id number] [address] [place] [address] Sep, [facility] [address] [id number] [address] [place] [address] Sep, [facility] [address] [id number] [address] [place] [address] Aug, [facility] [address] [id number] [address] [place] [address] Aug, Hypertension I10 ; Coronary artery disease I25.10 and Arthritis M19.90 [facility] [address] [id number] [address] [place] [address] Jun, [facility] [address] [id number] [address] [place] [address] Jun, Essential hypertension, jayson gn 401.1 ; Other chronic pain 338.29 and Chronic airway obstruction, not elsewhere classified 496 [facility] [address] [id number] [address] [place] [address] Jun, [facility] [address] [id number] [address] [place] [address] Jun, [facility] [address] [id number] [address] [place] [address] Jun, [facility] [address] [id number] [address] [place] [address] May, [facility] [address] [id number] [address] [place] [address] May, [facility] [address] [id number] [address] [place] [address] Apr, [facility] [address] [id number] [address] [place] [address] [place] [address] Apr, [facility] [address] [id number] [address] [place] [address], [place] [address] Apr, [facility] [address] [id number] [address] [place] [address], [place] [address] March, [facility] [address] [id number] [address] [place] [address], [place] [address] March, [facility] [address] [id number] [address] [place] [address], [place] [address] March, [facility] [address] [id number] [address] [place] [address], [place] [address] March, [facility] [address] [id number] [address] [place] [address], [place] [address] March, Sialadenitis 527.2 [facility] [address] [id number] [address] [place] [address], [place] [address] Feb, [facility] [address] [id number] [address] [place] [address], [place] [address] Feb, [facility] [address] [id number] [address] [place] [address], [place] [address] Feb, [facility] [address] [id number] [address] [place] [address], [place] [address] Feb, [facility] [address] [id number] [address] [place] [address], [place] [address] Feb, [facility] [address] [id number] [address] [place] [address], [place] [address] Jan, [facility] [address] [id number] [address] [place] [address], [place] [address] Jan, [facility] [address] [id number] [address] [place] [address], [place] [address] Jan, [facility] [address] [id number] [address] [place] [address], [place] [address] Jan, [facility] [address] [id number] [address] [place] [address], [place] [address] Jan, [facility] [address] [id number] [address] [place] [address], [place] [address] Jan, [facility] [address] [id number] [address] [place] [address], [place] [address] Dec, [facility] [address] [id number] [address] [place] [address], [place] [address] Dec, [facility] [address] [id number] [address] [place] [address], [place] [address] Dec, [facility] [address] [id number] [address] [place] [address], [place] [address] Dec, [facility] [address] [id number] [address] [place] [address], [place] [address] Dec, [facility] [address] [id number] [address] [place] [address], [place] [address] Dec, [facility] [address] [id number] [address] [place] [address], [place] [address] Nov, [facility] [address] [id number] [address] [place] [address], [place] [address] Nov, [facility] [address] [id number] [address] [place] [address], [place] [address] Nov, [facility] [address] [id number] [address] [place] [address], [place] [address] Nov, [facility] [address] [id number] [address] [place] [address], [place] [address] Nov, [facility] [address] [id number] [address] [place] [address], [place] [address] Nov, [facility] [address] [id number] [address] [place] [address], [place] [address] Nov, [facility] [address] [id number] [address] [place] [address], [place] [address] 16 Nov, 2014 [facility] [address] [id number] [address] [place] [address], [place] [address] Nov, [facility] [address] [id number] [address] [place] [address], [place] [address] Nov, [facility] [address] [id number] [address] [place] [address], [place] [address] Nov, [facility] [address] [id number] [address] [place] [address], [place] [address] Nov, [facility] [address] [id number] [address] [place] [address], [place] [address] Nov, [facility] [address] [id number] [address] [place] [address], [place] [address] Nov, [facility] [address] [id number] [address] [place] [address], [place] [address] Oct, [facility] [address] [id number] [address] [place] [address], [place] [address] Oct, [facility] [address] [id number] [address] [place] [address], [place] [address] Oct, [facility] [address] [id number] [address] [place] [address], [place] [address] 18 Oct, 2014 [facility] [address] [id number] [address] [place] [address], [place] [address] 18 Oct, 2014 [facility] [address] [id number] [address] [place] [address], [place] [address] 17 Oct, 2014 [facility] [address] [id number] [address] [place] [address], [place] [address] 17 Oct, 2014 [facility] [address] [id number] [address] [place] [address], [place] [address] 10 Oct, 2014 [facility] [address] [id number] [address] [place] [address], [place] [address] Oct, [facility] [address] [id number] [address] [place] [address], [place] [address] Sep, [facility] [address] [id number] [address] [place] [address], [place] [address] Sep, [facility] [address] [id number] [address] [place] [address], [place] [address] Sep, [facility] [address] [id number] [address] [place] [address], [place] [address] Sep, [facility] [address] [id number] [address] [place] [address], [place] [address] Sep, [facility] [address] [id number] [address] [place] [address], [place] [address] Sep, [facility] [address] [id number] [address] [place] [address], [place] [address] Sep, [facility] [address] [id number] [address] [place] [address], [place] [address] Sep, [facility] [address] [id number] [address] [place] [address], [place] [address] Sep, [facility] [address] [id number] [address] [place] [address], [place] [address] Sep, [facility] [address] [id number] [address] [place] [address], [place] [address] Sep, [facility] [address] [id number] [address] [place] [address], [place] [address] Sep, [facility] [address] [id number] [address] [place] [address], [place] [address] Aug, [facility] [address] [id number] [address] [place] [address], [place] [address] Aug, [facility] [address] [id number] [address] [place] [address], [place] [address] Aug, [facility] [address] [id number] [address] [place] [address] 29 Aug, 2014 [facility] [address] [id number] [address] [place] [address], [place] [address] Aug, [facility] [address] [id number] [address] [place] [address], [place] [address] 28 Aug, 2014 [facility] [address] [id number] [address] [place] [address], [place] [address] 17 Aug, 2014 [facility] [address] [id number] [address] [place] [address], [place] [address] 17 Aug, 2014 [facility] [address] [id number] [address] [place] [address], [place] [address] 30 Jul, 2013 [facility] [address] [id number] [address] [place] [address], [place] [address] 30 Jul, 2013 [facility] [address] [id number] [address] [place] [address], [place] [address] 30 Jul, 2013 [facility] [address] [id number] [address] [place] [address], [place] [address] 30 Jul, 2013 [facility] [address] [id number] [address] [place] [address], [place] [address] 25 Jul, 2013 [facility] [address] [id number] [address] [place] [address], [place] [address] 25 Jul, 2013 [facility] [address] [id number] [address] [place] [address], [place] [address] 15 Jul, 2013 [facility] [address] [id number] [address] [place] [address], [place] [address] 15 Jul, 2013 [facility] [address] [id number] [address] [place] [address], [place] [address] 11 Jul, 2014 [facility] [address] [id number] [address] [place] [address], [place] [address] 11 Jul, 2013 [facility] [address] [id number] [address] [place] [address], [place] [address] 29 Jun, 2014 [facility] [address] [id number] [facility] [place] [address] Jun, [facility] [address] [id number] [facility] [place] [address] Jun, [facility] [address] [id number] [facility] [place] [address] Jun, [facility] [address] [id number] [address] [place] [address], [place] [address] Jun, [facility] [address] [id number] [address] [place] [address], [place] [address] Jun, [facility] [address] [id number] [address] [place] [address], [place] [address] Jun, [facility] [address] [id number] [address] [place] [address], [place] [address] Jun, [facility] [address] [id number] [address] [place] [address], [place] [address] Jun, [facility] [address] [id number] [address] [place] [address], [place] [address] Jun, [facility] [address] [id number] [address] [place] [address], [place] [address] Jun, [facility] [address] [id number] [address] [place] [address], [place] [address] Jun, [facility] [address] [id number] [address] [place] [address], [place] [address] Jun, [facility] [address] [id number] [address] [place] [address], [place] [address] Jun, [facility] [address] [id number] [address] [place] [address], [place] [address] Jun, [facility] [address] [id number] [address] [place] [address], [place] [address] Jun, [facility] [address] [id number] [address] [place] [address], [place] [address] Jun, [facility] [address] [id number] [facility] [place] [address] Jun, [facility] [address] [id number] [address] [place] [address], [place] [address] Jun, [facility] [address] [id number] [facility] [place] [address] Jun, [facility] [address] [id number] [address] [place] [address], [place] [address] Jun, [facility] [address] [id number] [address] [place] [address], [place] [address] Jun, [facility] [address] [id number] [address] [place] [address], [place] [address] May, [facility] [address] [id number] [address] [place] [address], [place] [address] May, [facility] [address] [id number] [address] [place] [address], [place] [address] May, [facility] [address] [id number] [address] [place] [address], [place] [address] May, [facility] [address] [id number] [address] [place] [address], [place] [address] May, [facility] [address] [id number] [address] [place] [address], [place] [address] May, [facility] [address] [id number] [address] [place] [address], [place] [address] May, [facility] [address] [id number] [address] [place] [address], [place] [address] May, [facility] [address] [id number] [address] [place] [address], [place] [address] May, [facility] [address] [id number] [address] [place] [address], [place] [address] May, [facility] [address] [id number] [address] [place] [address], [place] [address] May, [facility] [address] [id number] [facility] [place] [address] May, [facility] [address] [id number] [address] [place] [address], [place] [address] May, [facility] [address] [id number] [address] [place] [address], [place] [address] Apr, [facility] [address] [id number] [address] [place] [address], [place] [address] Apr, [facility] [address] [id number] [address] [place] [address], [place] [address] Apr, [facility] [address] [id number] [address] [place] [address], [place] [address] Apr, [facility] [address] [id number] [address] [place] [address], [place] [address] Apr, [facility] [address] [id number] [address] [place] [address], [place] [address] Apr, [facility] [address] [id number] [address] [place] [address], [place] [address] Apr, [facility] [address] [id number] [address] [place] [address], [place] [address] Apr, [facility] [address] [id number] [address] [place] [address], [place] [address] Apr, [facility] [address] [id number] [address] [place] [address], [place] [address] March, [facility] [address] [id number] [address] [place] [address], [place] [address] March, [facility] [address] [id number] [address] [place] [address], [place] [address] March, [facility] [address] [id number] [address] [place] [address], [place] [address] March, [facility] [address] [id number] [address] [place] [address], [place] [address] March, [facility] [address] [id number] [address] [place] [address], [place] [address] March, [facility] [address] [id number] [address] [place] [address], [place] [address] March, [facility] [address] [id number] [address] [place] [address], [place] [address] March, [facility] [address] [id number] [address] [place] [address], [place] [address] March, [facility] [address] [id number] [address] [place] [address], [place] [address] March, [facility] [address] [id number] [address] [place] [address], [place] [address] March, [facility] [address] [id number] [address] [place] [address], [place] [address] March, [facility] [address] [id number] [address] [place] [address], [place] [address] March, [facility] [address] [id number] [address] [place] [address], [place] [address] March, [facility] [address] [id number] [address] [place] [address], [place] [address] March, [facility] [address] [id number] [address] [place] [address], [place] [address] March, [facility] [address] [id number] [address] [place] [address], [place] [address] March, [facility] [address] [id number] [address] [place] [address], [place] [address] March, [facility] [address] [id number] [address] [place] [address], [place] [address] March, [facility] [address] [id number] [address] [place] [address], [place] [address] March, [facility] [address] [id number] [facility] [place] [address] Feb, [facility] [address] [id number] [facility] [place] [address] Feb, [facility] [address] [id number] [facility] [place] [address] Feb, [facility] [address] [id number] [address] [place] [address], [place] [address] Feb, [facility] [address] [id number] [facility] [place] [address] Feb, [facility] [address] [id number] [address] [place] [address], [place] [address] Feb, [facility] [address] [id number] [address] [place] [address], [place] [address] Feb, [facility] [address] [id number] [address] [place] [address], [place] [address] Feb, [facility] [address] [id number] [address] [place] [address], [place] [address] Jan, [facility] [address] [id number] [address] [place] [address], [place] [address] Jan, [facility] [address] [id number] [address] [place] [address], [place] [address] Jan, [facility] [address] [id number] [address] [place] [address], [place] [address] 24 Jan, 2014 [facility] [address] [id number] [address] [place] [address] [address] Jan, [facility] [place] [facility] [address] [id number] [address] [place] [address], [place] [address] Jan, [facility] [place] [facility] [address] [id number] [address] [place] [address], [place] [address] Jan, [facility] [place] [facility] [address] [id number] [address] [place] [address] Jan, [facility] [address] [id number] [address] [place] [address], [place] [address] Jan, [facility] [place] [facility] [address] [id number] [address] [place] [address], [place] [address] Jan, [facility] [place] [facility] [address] [id number] [address] [place] [address], [place] [address] Dec, [facility] [place] [facility] [address] [id number] [address] [place] [address], [place] [address] Dec, [facility] [address] [id number] [address] [place] [address], [place] [address] Dec, [facility] [address] [id number] [address] [place] [address], [place] [address] Dec, [facility] [place] [facility] [address] [id number] [address] [place] [address], [place] [address] Dec, [facility] [address] [id number] [address] [place] [address], [place] [address] Dec, [facility] [place] [facility] [address] [id number] [address] [place] [address], [place] [address] Dec, [facility] [address] [id number] [address] [place] [address], [place] [address] Dec, [facility] [place] [facility] [address] [id number] [address] [place] [address], [place] [address] Nov, [facility] [place] [facility] [address] [id number] [address] [place] [address], [place] [address] Nov, [facility] [place] [facility] [address] [id number] [address] [place] [address], [place] [address] Nov, [facility] [place] [facility] [address] [id number] [address] [place] [address], [place] [address] Nov, [facility] [place] [facility] [address] [id number] [address] [place] [address], [place] [address] Nov, [facility] [address] [id number] [address] [place] [address], [place] [address] Nov, [facility] [address] [id number] [address] [place] [address], [place] [address] Nov, [facility] [address] [id number] [address] [place] [address], [place] [address] Nov, [facility] [address] [id number] [address] [place] [address], [place] [address] Nov, [facility] [address] [id number] [address] [place] [address], [place] [address] Nov, [facility] [address] [id number] [address] [place] [address], [place] [address] Nov, [facility] [address] [id number] [address] [place] [address], [place] [address] Nov, [facility] [address] [id number] [address] [place] [address], [place] [address] Nov, [facility] [address] [id number] [address] [place] [address], [place] [address] Oct, [facility] [address] [id number] [address] [place] [address], [place] [address] Oct, [facility] [address] [id number] [address] [place] [address], [place] [address] Oct, [facility] [address] [id number] [address] [place] [address], [place] [address] Oct, [facility] [address] [id number] [address] [place] [address], [place] [address] Oct, [facility] [address] [id number] [address] [place] [address], [place] [address] Oct, [facility] [address] [id number] [address] [place] [address], [place] [address] Oct, [facility] [address] [id number] [address] [place] [address], [place] [address] 18 Oct, 2012 [facility] [address] [id number] [address] [place] [address], [place] [address] 17 Oct, 2012 [facility] [address] [id number] [address] [place] [address], [place] [address] 17 Oct, 2013 [facility] [address] [id number] [address] [place] [address], [place] [address] 03 Oct, 2012 [facility] [address] [id number] [address] [place] [address], [place] [address] 03 Oct, 2013 [facility] [address] [id number] [address] [place] [address], [place] [address] 02 Oct, 2013 [facility] [address] [id number] [address] [place] [address], [place] [address] 02 Oct, 2013 [facility] [address] [id number] [address] [place] [address], [place] [address] 14 Sep, 2013 [facility] [address] [id number] [address] [place] [address], [place] [address] 14 Sep, 2013 [facility] [address] [id number] [address] [place] [address], [place] [address] 05 Sep, 2013 [facility] [address] [id number] [address] [place] [address], [place] [address] 05 Sep, 2013 [facility] [address] [id number] [address] [place] [address], [place] [address] Sep, [facility] [address] [id number] [address] [place] [address], [place] [address] Sep, [facility] [address] [id number] [address] [place] [address], [place] [address] Sep, [facility] [address] [id number] [address] [place] [address], [place] [address] Sep, [facility] [address] [id number] [address] [place] [address], [place] [address] Sep, [facility] [address] [id number] [address] [place] [address], [place] [address] Sep, [facility] [address] [id number] [address] [place] [address], [place] [address] Aug, [facility] [address] [id number] [address] [place] [address], [place] [address] Aug, [facility] [address] [id number] [address] [place] [address], [place] [address] Aug, [facility] [address] [id number] [address] [place] [address], [place] [address] Aug, [facility] [address] [id number] [address] [place] [address], [place] [address] Aug, [facility] [address] [id number] [address] [place] [address], [place] [address] Aug, [facility] [address] [id number] [address] [place] [address], [place] [address] Aug, [facility] [address] [id number] [address] [place] [address], [place] [address] Aug, [facility] [address] [id number] [address] [place] [address] Aug, [facility] [address] [id number] [address] [place] [address] Aug, [facility] [address] [id number] [address] [place] [address] Aug, [facility] [address] [id number] [address] [place] [address], [place] [address] Aug, [facility] [address] [id number] [address] [place] [address], [place] [address] Aug, [facility] [address] [id number] [address] [place] [address] Aug, [facility] [address] [id number] [address] [place] [address] 17 Aug, 2013 [facility] [address] [id number] [address] [place] [address], [place] [address] 14 Aug, 2013 [facility] [address] [id number] [address] [place] [address], [place] [address] 14 Aug, 2013 [facility] [address] [id number] [address] [place] [address], [place] [address] Aug, [facility] [address] [id number] [address] [place] [address], [place] [address] 20 Jul, 2013 [facility] [address] [id number] [address] [place] [address], [place] [address] 19 Jul, 2013 [facility] [address] [id number] [address] [place] [address], [place] [address] 18 Jul, 2013 [facility] [address] [id number] [address] [place] [address], [place] [address] 11 Jul, 2013 [facility] [address] [id number] [address] [place] [address], [place] [address] 11 Jul, 2013 [facility] [address] [id number] [address] [place] [address], [place] [address] 28 Jun, 2013 [facility] [address] [id number] [address] [place] [address], [place] [address] Jun, [facility] [address] [id number] [address] [place] [address], [place] [address] Jun, [facility] [address] [id number] [address] [place] [address], [place] [address] 15 Jun, 2013 [facility] [address] [id number] [address] [place] [address], [place] [address] 14 Jun, 2013 [facility] [address] [id number] [address] [place] [address], [place] [address] Jun, [facility] [address] [id number] [address] [place] [address], [place] [address] Jun, [facility] [place] [facility] [address] [id number] [address] [place] [address], [place] [address] Jun, [facility] [address] [id number] [address] [place] [address], [place] [address] Jun, [facility] [address] [id number] [address] [place] [address], [place] [address] Jun, [facility] [address] [id number] [address] [place] [address], [place] [address] May, [facility] [address] [id number] [address] [place] [address], [place] [address] May, [facility] [address] [id number] [address] [place] [address], [place] [address] May, [facility] [address] [id number] [address] [place] [address], [place] [address] May, [facility] [address] [id number] [address] [place] [address], [place] [address] May, [facility] [address] [id number] [address] [place] [address], [place] [address] May, [facility] [address] [id number] [address] [place] [address], [place] [address] May, [facility] [address] [id number] [address] [place] [address], [place] [address] May, [facility] [address] [id number] [address] [place] [address], [place] [address] May, [facility] [address] [id number] [address] [place] [address], [place] [address] Apr, [facility] [address] [id number] [address] [place] [address], [place] [address] Apr, [facility] [address] [id number] [address] [place] [address], [place] [address] Apr, [facility] [address] [id number] [address] [place] [address], [place] [address] Apr, [facility] [address] [id number] [facility] [place] [address] Apr, [facility] [address] [id number] [address] [place] [address], [place] [address] Apr, [facility] [address] [id number] [address] [place] [address], [place] [address] Apr, [facility] [address] [id number] [address] [place] [address], [place] [address] March, [facility] [address] [id number] [address] [place] [address], [place] [address] Feb, [facility] [address] [id number] [address] [place] [address], [place] [address] Feb, [facility] [address] [id number] [address] [place] [address], [place] [address] Feb, [facility] [address] [id number] [address] [place] [address], [place] [address] Jan, [facility] [address] [id number] [address] [place] [address], [place] [address] Jan, [facility] [address] [id number] [address] [place] [address], [place] [address] Jan, [facility] [address] [id number] [address] [place] [address], [place] [address] 14 Jan, 2013 [facility] [address] [id number] [address] [place] [address], [place] [address] 12 Jan, 2013 [facility] [address] [id number] [address] [place] [address], [place] [address] 08 Jan, 2013 [facility] [address] [id number] [address] [place] [address], [place] [address] 07 Jan, 2013 [facility] [address] [id number] [address] [place] [address], [place] [address] 04 Jan, 2013 [facility] [address] [id number] [address] [place] [address], [place] [address] 28 Dec, 2012 [facility] [address] [id number] [address] [place] [address], [place] [address] 25 Dec, 2012 [facility] [address] [id number] [address] [place] [address], [place] [address] 13 Dec, 2012 [facility] [address] [id number] [address] [place] [address], [place] [address] 11 Dec, 2012 [facility] [address] [id number] [address] [place] [address], [place] [address] 07 Dec, 2012 [facility] [address] [id number] [address] [place] [address], [place] [address] 06 Dec, 2012 [facility] [address] [id number] [address] [place] [address], [place] [address] 05 Dec, 2012 [facility] [address] [id number] [address] [place] [address], [place] [address] Nov, [facility] [address] [id number] [address] [place] [address], [place] [address] 24 Nov, 2012 [facility] [address] [id number] [address] [place] [address], [place] [address] 18 Nov, 2012 [facility] [address] [id number] [address] [place] [address], [place] [address] 15 Nov, 2012 [facility] [address] [id number] [address] [place] [address], [place] [address] Nov, [facility] [address] [id number] [address] [place] [address], [place] [address] Nov, [facility] [address] [id number] [address] [place] [address], [place] [address] Nov, [facility] [address] [id number] [address] [place] [address], [place] [address] Oct, [facility] [address] [id number] [address] [place] [address], [place] [address] Oct, [facility] [address] [id number] [address] [place] [address], [place] [address] Oct, [facility] [address] [id number] [address] [place] [address], [place] [address] Oct, [facility] [address] [id number] [address] [place] [address], [place] [address] Oct, [facility] [address] [id number] [address] [place] [address], [place] [address] Oct, [facility] [address] [id number] [address] [place] [address], [place] [address] Oct, [facility] [address] [id number] [address] [place] [address], [place] [address] Oct, [facility] [address] [id number] [address] [place] [address], [place] [address] Oct, [facility] [address] [id number] [address] [place] [address], [place] [address] Oct, [facility] [address] [id number] [address] [place] [address], [place] [address] Oct, [facility] [address] [id number] [address] [place] [address], [place] [address] Oct, [facility] [address] [id number] [address] [place] [address], [place] [address] Sep, [facility] [place] [facility] [address] [id number] [address] [place] [address], [place] [address] Sep, [facility] [place] [facility] [address] [id number] [address] [place] [address], [place] [address] Sep, [facility] [place] [facility] [address] [id number] [address] [place] [address], [place] [address] Sep, [facility] [place] [facility] [address] [id number] [address] [place] [address], [place] [address] Sep, [facility] [place] [facility] [address] [id number] [address] [place] [address] Sep, [facility] [address] [id number] [address] [place] [address], [place] [address] Sep, [facility] [place] [facility] [address] [id number] [address] [place] [address] Sep, [facility] [place] [facility] [address] [id number] [address] [place] [address] Sep, [facility] [place] [facility] [address] [id number] [address] [place] [address] Sep, [facility] [address] [id number] [address] [place] [address], [place] [address] Sep, [facility] [address] [id number] [address] [place] [address] Aug, [facility] [address] [id number] [address] [place] [address] Aug, [facility] [place] [facility] [address] [id number] [address] [place] [address] Aug, [facility] [address] [id number] [address] [place] [address] Aug, [facility] [address] [id number] [address] [place] [address] Aug, [facility] [place] [facility] [address] [id number] [address] [place] [address] Aug, [facility] [place] [facility] [address] [id number] [address] [place] [address] Aug, [facility] [place] [facility] [address] [id number] [address] [place] [address] Aug, [facility] [place] [facility] [address] [id number] [address] [place] [address] Aug, [facility] [address] [id number] [address] [place] [address] Aug, [facility] [address] [id number] [address] [place] [address] 22 Jul, 2011 [facility] [address] [id number] [facility] [place] [address] 20 Jul, 2011 [facility] [address] [id number] [facility] [place] [address] 10 Jul, 2012 [facility] [address] [id number] [address] [place] [address], [place] [address] 06 Jul, 2012 [facility] [address] [id number] [address] [place] [address], [place] [address] 30 Jun, 2012 [facility] [address] [id number] [address] [place] [address], [place] [address] Jun, [facility] [address] [id number] [address] [place] [address], [place] [address] 16 Jun, 2012 [facility] [address] [id number] [address] [place] [address], [place] [address] Jun, [facility] [address] [id number] [address] [place] [address], [place] [address] Jun, [facility] [address] [id number] [address] [place] [address], [place] [address] Jun, [facility] [address] [id number] [address] [place] [address], [place] [address] Jun, [facility] [address] [id number] [address] [place] [address], [place] [address] May, [facility] [address] [id number] [address] [place] [address], [place] [address] May, [facility] [address] [id number] [address] [place] [address], [place] [address] May, [facility] [address] [id number] [address] [place] [address], [place] [address] May, [facility] [address] [id number] [address] [place] [address] [address] May, [facility] [address] [id number] [address] [place] [address], [place] [address] Apr, [facility] [address] [id number] [address] [place] [address], [place] [address] Apr, [facility] [address] [id number] [address] [place] [address], [place] [address] Apr, [facility] [address] [id number] [address] [place] [address], [place] [address] Apr, [facility] [address] [id number] [address] [place] [address], [place] [address] Apr, [facility] [address] [id number] [address] [place] [address], [place] [address] March, [facility] [address] [id number] [address] [place] [address], [place] [address] March, [facility] [address] [id number] [address] [place] [address], [place] [address] March, [facility] [address] [id number] [address] [place] [address], [place] [address] March, [facility] [address] [id number] [address] [place] [address], [place] [address] March, [facility] [address] [id number] [address] [place] [address], [place] [address] March, [facility] [address] [id number] [address] [place] [address], [place] [address] March, [facility] [address] [id number] [address] [place] [address], [place] [address] March, [facility] [address] [id number] [address] [place] [address], [place] [address] March, [facility] [address] [id number] [address] [place] [address], [place] [address] March, [facility] [address] [id number] [address] [place] [address], [place] [address] 30 Feb, 2012 [facility] [address] [id number] [address] [place] [address], [place] [address] 27 Feb, 2012 [facility] [address] [id number] [address] [place] [address], [place] [address] 26 Feb, 2012 [facility] [address] [id number] [address] [place] [address], [place] [address] Feb, [facility] [address] [id number] [address] [place] [address], [place] [address] Feb, [facility] [address] [id number] [address] [place] [address], [place] [address] Feb, [facility] [address] [id number] [address] [place] [address], [place] [address] Feb, [facility] [address] [id number] [address] [place] [address], [place] [address] Feb, [facility] [address] [id number] [address] [place] [address], [place] [address] Feb, [facility] [address] [id number] [address] [place] [address], [place] [address] 08 Jan, 2012 [facility] [address] [id number] [address] [place] [address], [place] [address] Jan, [facility] [address] [id number] [address] [place] [address], [place] [address] 05 Jan, 2012 [facility] [address] [id number] [address] [place] [address], [place] [address] Jan, [facility] [address] [id number] [address] [place] [address], [place] [address] Dec, [facility] [address] [id number] [address] [place] [address], [place] [id number] Dec, [facility] [address] [id number] [address] [place] [address], [place] [address] Nov, [facility] [address] [id number] [address] [place] [id number] Nov, [facility] [address] [id number] [address] [place] [phone] Nov, [facility] [address] [id number] [address] [place] [phone] Nov, [facility] [address] [id number] [address] [place] [phone] Nov, [facility] [address] [id number] [address] [place] [phone] Oct, [facility] [address] [id number] [address] [place] [phone] Oct, [facility] [address] [id number] [address] [place] [phone] Oct, [facility] [address] [id number] [address] [place] [phone] Oct, [facility] [address] [id number] [address] [place] [phone] Oct, [facility] [address] [id number] [address] [place] [phone] Oct, [facility] [address] [id number] [address] [place] [phone] Oct, [facility] [address] [id number] [address] [place] [phone] Oct, [facility] [address] [id number] [address] [place] [phone] Sep, IMMUNIZATIONS No Known Immunizations SOCIAL HISTORY [...] information Hospitalization History [facility]- Urosepsis, ab d pain and fever, discharged 11/27/2017 11/26/2017 Hospitalization History [facility]- Went Unrepsonsive, Hit head 2017 Hospitalization History [facility]- Back Pain 8
--- OUTSIDE RECORDS SUMMARY | 2020-06-18 15:37 | XMS REPORT ---
Author Author Sanjuanita Abdul Doctor Organization [facility] Address Unknown Phone Unavailable Care Team Providers Care Training Engineer Name Role Phone Migration, Doctor Unavailable Unavailable PROBLEMS Type Condition ICD9-CM Code HPO49-OT Code Onset Dates Condition S tatus SNOMED Code Problem Hypertension I10 Active 9266180 3 Problem Hyperlipidemia E78.5 Active 49846 004 Problem Coronary artery disease I25.10 Active 93673279 Problem Low back pain M54.5 Active 512681 009 Problem Other chronic pain G89.29 Active 8 6839272 Problem Ventral hernia without obstruction or gangrene K43 .9 Active 921296868 Problem Type 2 diabetes mellitus wit hout complication, without long-term current use of insulin E11.9 Active 194719184 Problem Anxiety F41.9 Active 69766113 Problem Peripheral vascular disease I73.9 Ac tive 277620701 Problem Insomnia G47.00 Active 351991657 Problem Microcytic anemia D50.9 Active 23 6237425 Problem Pharyngeal dysphagia R13.13 Active 45654332722814 Problem Other iron deficiency anemia D50.8 A ctive 90540951 Problem Reactive depression F32.9 Active 62234084 Problem Paroxysmal atrial fibrillation I48.0 Active 467464832 Problem Postmenopausal atrophic vaginitis N95.2 Active 98224770 Problem Encounter for suprapubic catheter care Z43.5 Active 746490166 Problem Neurogenic bladder N31.9 Active 3 35551241 ALLERGIES No Information ENCOUNTERS Encounter Location Date Diagnosis [place] [address] [facility] [id number] [address] [place] [id number] 17 Apr, 2020 Anxiety F41.9 and Strain of right shoulder, subsequent encounter S46.911D [place] [address] [id number] [address] [place] [phone] 04 Apr, 2020 [facility] [address] [facility] [id number] [address] [place] [phone] March, [facility] [address] [id number] [address] [place] [phone] March, Anxiety F41.9 and Strain of right shoulder, subsequent encounter S46.911D [facility] [address] [id number] [address] [place], [place] [id number] Feb, Anxiety F41.9 and Strain of right shoulder, subsequent encounter S46.911D [facility] [address] [id number] [address] [place] [phone] Jan, Anxiety F41.9 and Strain of right shoulder, subsequent encounter S46.911D [facility] [address] [id number] [address] [place] [phone] Jan, Via [facility] [address] [place] [id number] Jan, Neurogenic bladder N31.9 [facility] [address] [id number] [address] [place] [phone] Dec, [facility] [address] [id number] [address] [place] [phone] Dec, [facility] [address] [id number] [address] [place] [phone] Dec, Anxiety F41.9 and Strain of right shoulder, subsequent encounter S46.911D [facility] [address] [id number] [address] [place] [phone] 10 Dec, 2019 Other iron deficiency anemia D50.8 [facility] [address] [id number] [address] [place] [phone] Dec, Via [facility] [address] [place] [id number] Dec, Encounter for suprapubic catheter care Z 43.5 and Microcytic anemia D50.9 [facility] [address] [id number] [address] [place] [phone] Dec, [facility] [address] [id number] [address] [place] [phone] Nov, Anxiety F41.9 and Strain of right shoulder, subsequent encounter S46.911D [facility] [address] [id number] [address] [place] [phone] Nov, Hypertension I10 Via [facility] [address] [place] [id number] Nov, Pneumonia of both lungs due to infectiou s organism, unspecified part of lung J18.9 and Suprapubic catheter Z93.59 [place] [address] [id number] [address] [place] [phone] Nov, Hypertension I10 and Reactiv e depression F32.9 [place] [address] [id number] [address] [place] [phone] Oct, Strain of right shoulder, scherer bsequent encounter S46.911D and Anxiety F41.9 [place] [address] [id number] [address] [place] [phone] Oct, Via [facility] [address] [place] [id number] Oct, Suprapubic catheter Z93.59 and Candidias is, intertriginous B37.2 [facility] [address] [id number] [address] [place] [address] Oct, Suprapubic catheter Z93.59 [facility] [address] [id number] [address] [place] [phone] Oct, Anxiety F41.9 and Strain of right shoulder, subsequent encounter S46.911D [facility] [address] [id number] [address] [place] [phone] Sep, [place] [address] [id number] [address] [place] [phone] Sep, [place] [address] [id number] [address] [place] [phone] Sep, Via [employer] [address] [place] [id number] Sep, Suprapubic catheter Z93.59 [facility] [address] [id number] [address] [place] [phone] Sep, Anxiety F41.9 and Strain of right shoulder, subsequent encounter S46.911D [facility] [address] [id number] [address] [place] [phone] Aug, [facility] [address] [id number] [address] [place] [phone] Aug, [facility] [address] [id number] [address] [place] [phone] Aug, Anxiety F41.9 and Strain of right shoulder, subsequent encounter S46.911D [facility] [address] [place] [facility] [place] [id number] Aug, Suprapubic catheter Z93.59 [facility] [address] [id number] [address] [place] [phone] Jul, Strain of right shoulder, scherer bsequent encounter S46.911D and Anxiety F41.9 [facility] [address] [id number] [address] [place] [phone] Jul, Anxiety F41.9 [facility] [address] [id number] [address] [place] [phone] Jun, [facility] [address] [id number] [address] [place] [phone] Jun, [facility] [address] [id number] [address] [place] [phone] Jun, [facility] [address] [id number] [address] [place] [phone] Jun, Strain of right shoulder, scherer bsequent encounter S46.911D [facility] [address] [id number] [address] [place] [phone] Jun, Strain of right shoulder, scherer bsequent encounter S46.911D [place] [address] [id number] [address] [place] [address] Jun, Anxiety F41.9 [facility] [address] [place] [id number] Jun, Neurogenic bladder N31.9 and Anxiety F41 .9 [facility] [address] [place] [id number] May, Anxiety F41.9 [place] [address] [id number] [address] [place] [address] May, Dysuria R30.0 [place] [address] [id number] [address] [place] [phone] May, Strain of right shoulder, scherer bsequent encounter S46.911D and Anxiety F41.9 [place] [address] [id number] [address] [place] [phone] Apr, [facility] [address] [place] [id number] Apr, Strain of right shoulder, subsequent enc ounter S46.911D [place] [address] [id number] [address] [place] [phone] 14 Apr, 2019 Strain of right shoulder, scherer bsequent encounter S46.911D and Anxiety F41.9 [facility] [address] [place] [id number] 13 Apr, 2019 Type 2 diabetes mellitus without complic ation, without long-term current use of insulin E11.9 and Neurogenic bladder N31.9 [facility] [address] [place] [id number] Apr, Strain of right shoulder, subsequent enc ounter S46.911D ; History of GI bleed Z87.19 ; Neurogenic bladder N31.9 and Reactive depression F32.9 [place] [address] [id number] [address] [place] [address] 10 Apr, 2019 Acute pain of left shoulder M25.512 [place] [address] [id number] [address] [place] [phone] Apr, 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 [address] [id number] [address] [place] [phone] March, Via [facility] [address] [place] [id number] March, Bronchitis J40 [facility] [address] [id number] [address] [place] [phone] March, Cough R05 [facility] [address] [id number] [address] [place] [phone] March, Other chronic pain G89.29 [facility] [address] [id number] [address] [place] [phone] March, Anxiety F41.9 [facility] [address] [id number] [address] [place] [phone] March, [facility] [address] [id number] [address] [place] [phone] Feb, Other chronic pain G89.29 [facility] [address] [id number] [address] [place] [address] Feb, Anxiety F41.9 [facility] [address] [id number] [address] [place] [address] Feb, Other chronic pain G89.29 Via [facility] [facility] [address] [place] [id number] Feb, Neurogenic bladder N31.9 and Suprapubic catheter Z93.59 [facility] [address] [id number] [address] [place] [phone] Jan, Anxiety F41.9 [facility] [address] [id number] [address] [place] [phone] Dec, Anxiety F41.9 [facility] [address] [id number] [address] [place] [phone] Dec, Other chronic pain G89.29 an d Anxiety F41.9 [facility] [address] [id number] [address] [place] [phone] Dec, Via [employer] [address] [place] [id number] Dec, Neurogenic bladder N31.9 and Suprapubic catheter Z93.59 [facility] [address] [id number] [address] [place] [address] Nov, Other chronic pain G89.29 an d Anxiety F41.9 [facility] [address] [id number] [address] [place] [phone] Nov, Via [employer] [address] [place] [id number] Nov, Suprapubic catheter Z93.59 [facility] [address] [id number] [address] [place] [phone] Oct, Other chronic pain G89.29 an d Anxiety F41.9 [facility] [address] [id number] [address] [place] [phone] Oct, [facility] [address] [id number] [address] [place] [address] Oct, Suprapubic catheter Z93.59 [facility] [address] [id number] [address] [place] [phone] Oct, Via [employer] [address] [place] [id number] Oct, [facility] [address] [id number] [address] [place] [phone] Oct, Anxiety F41.9 [facility] [address] [id number] [address] [place] [phone] Oct, Anxiety F41.9 Via [employer] [address] [place] [id number] Oct, Other chronic pain G89.29 [facility] [address] [id number] [address] [place] [phone] Sep, Other chronic pain G89.29 Via [employer] [address] [place] [id number] Sep, Suprapubic catheter Z93.59 and Cervicalg ia M54.2 [facility] [address] [id number] [address] [place] [address] Sep, [facility] [address] [id number] [address] [place] [phone] Sep, [facility] [address] [id number] [address] [place] [phone] Sep, Via [employer] [address] [place] [id number] Aug, Cystitis N30.90 [facility] [address] [id number] [address] [place] [phone] Aug, [facility] [address] [id number] [address] [place] [phone] Aug, Other chronic pain G89.29 [facility] [address] [id number] [address] [place] [phone] Aug, Via [employer] [address] [place] [id number] Aug, Encounter for suprapubic catheter care Z 43.5 [facility] [address] [id number] [address] [place] [phone] Jul, Via [employer] [address] [place] [id number] Jul, [facility] [address] [id number] [address] [place] [address] Jul, Other chronic pain G89.29 [facility] [address] [id number] [address] [place] [phone] Jul, [facility] [address] [id number] [address] [place] [address] Jul, [facility] [employer] [address] [place] [id number] Jun, Postmenopausal atrophic vaginitis N95.2 [facility] [address] [id number] [address] [place] [address] Jun, Other chronic pain G89.29 [facility] [address] [id number] [address] [place] [phone] Jun, Via [employer] [address] [place] [id number] May, Anxiety F41.9 ; Type 2 diabetes mellitus without complication, without long-term current use of insulin E11.9 ; Hypertension I10 ; Low back pain M54.5 ; Paroxysmal atrial fibrillation I48.0 and 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 [facility] [address] [id number] [address] [place] [address] May, Other chronic pain G89.29 [facility] [employer] [address] [place] [id number] May, Low back pain M54.5 [facility] [address] [id number] [address] [place] [phone] May, [facility] [address] [id number] [address] [place] [phone] Apr, Other chronic pain G89.29 [facility] [address] [id number] [address] [place] [phone] Apr, [facility] [address] [id number] [address] [place] [phone] Apr, Via [employer] [address] [place] [id number] Apr, Closed compression fracture of L3 lumbar vertebra with routine healing, subsequent encounter S32.030D [facility] [employer] [address] [place] [id number] 14 Apr, 2018 Low back pain M54.5 Via [employer] [address] [place] [id number] 12 Apr, 2018 Coccydynia M53.3 [facility] [address] [id number] [address] [place] [address] March, [facility] [address] [id number] [address] [place] [address] March, Other chronic pain G89.29 [facility] [address] [id number] [address] [place] [phone] March, [facility] [address] [id number] [address] [place] [phone] March, [facility] [address] [id number] [address] [place] [phone] Feb, [facility] [address] [id number] [address] [place] [phone] Feb, Other chronic pain G89.29 Via [employer] [address] [place] [id number] Feb, Other chronic pain G89.29 and Anxiety F4 1.9 [facility] [address] [id number] [address] [place] [phone] Feb, [facility] [address] [id number] [address] [place] [address] Jan, [facility] [address] [id number] [address] [place] [phone] Jan, [facility] [address] [id number] [address] [place] [phone] Jan, [facility] [address] [id number] [address] [place] [phone] Jan, 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 [address] [facility] [id number] [address] [place] [phone] Nov, [facility] [address] [id number] [place] [id number] Nov, Anxiety F41.9 [facility] [employer] [address] [place] [id number] Nov, Status post surgery Z98.890 ; Confused R 41.0 ; Anxiety F41.9 and Other chronic pain G89.29 [facility] [address] [id number] [place] [id number] Nov, Other chronic pain G89.29 [facility] [address] [facility] [id number] [address] [place] [address] Oct, [facility] [address] [id number] [place] [id number] Oct, Other chronic pain G89.29 [facility] [address] [facility] [id number] [address] [place] [phone] Oct, Anxiety F41.9 [facility] [address] [id number] [place] [id number] Sep, Other chronic pain G89.29 [facility] [address] [id number] [place] [id number] Sep, Via [employer] [address] [place] [id number] Aug, Dysuria R30.0 and Anxiety F41.9 [facility] [address] [id number] [address] [place] [phone] Aug, [facility] [address] [id number] [place] [id number] Aug, Other chronic pain G89.29 [facility] [address] [id number] [address] [place] [phone] Jul, Other chronic pain G89.29 [facility] [address] [id number] [place] [id number] Jun, [facility] [address] [id number] [place] [id number] Jun, Other chronic pain G89.29 [facility] [address] [id number] [address] [place] [phone] Jun, [facility] [address] [id number] [address] [place] [phone] May, Other chronic pain G89.29 [facility] [address] [id number] [address] [place] [phone] Apr, Other chronic pain G89.29 [facility] [employer] [address] [place] [id number] Apr, Reactive depression F32.9 and Pharyngeal dysphagia R13.13 [facility] [address] [id number] [address] [place] [phone] Apr, Urinary tract infection with out hematuria, site unspecified N39.0 [facility] [address] [id number] [address] [place] [phone] March, Other chronic pain G89.29 [facility] [address] [id number] [address] [place] [phone] Feb, Other chronic pain G89.29 [facility] [address] [id number] [address] [place] [phone] Feb, [facility] [address] [id number] [facility] [facility] [place] [id number] Feb, [facility] [employer] [address] [place] [id number] Feb, Dysuria R30.0 and Ventral hernia without obstruction or gangrene K43.9 [facility] [address] [id number] [address] [place] [phone] Jan, Other chronic pain G89.29 [facility] [address] [id number] [place] [id number] Dec, Other chronic pain G89.29 [facility] [address] [facility] [id number] [address] [place] [id number] Nov, Other chronic pain G89.29 [facility] [employer] [address] [place] [id number] Nov, Lymphadenitis I88.9 [facility] [address] [facility] [id number] [address] [place] [phone] Nov, Other chronic pain G89.29 [facility] [address] [facility] [id number] [address] [place] [phone] Nov, [facility] [address] [id number] [place] [id number] Nov, Other chronic pain G89.29 [facility] [employer] [address] [place] [id number] Oct, Low back pain M54.5 ; Hypertension I10 a nd Type 2 diabetes mellitus without complication, without long-term current use of insulin E11.9 [facility] [address] [facility] [id number] [address] [place] [id number] Oct, [facility] [facility] [address] [id number] [address] [place] [id number] Oct, [facility] [address] [id number] [address] [place] [phone] Oct, [facility] [address] [id number] [address] [place] [id number] Oct, [facility] [address] [id number] [address] [place] [id number] Sep, [facility] [address] [id number] [address] [place] [id number] Sep, [facility] [address] [id number] [address] [place] [address] Aug, Other chronic pain G89.29 [facility] [address] [id number] [address] [place] [id number] Jul, [facility] [address] [id number] [address] [place] [address] Jul, [facility] [address] [id number] [address] [place] [address] Jul, [facility] [address] [id number] [address] [place] [address] Jun, [facility] [address] [id number] [address] [place] [address] Jun, [facility] [address] [place] [id number] Jun, Low back pain M54.5 ; Other chronic pain G89.29 and Coronary artery disease I25.10 [facility] [address] [id number] [address] [place] [id number] Jun, [facility] [address] [id number] [address] [place] [id number] May, [facility] [address] [id number] [address] [place] [address] May, [facility] [address] [id number] [address] [place] [id number] 13 May, 2016 Other chronic pain G89.29 [facility] [address] [id number] [address] [place] [id number] 13 May, 2016 [facility] [address] [id number] [address] [place] [phone] 28 Apr, 2016 [facility] [address] [id number] [address] [place] [id number] 17 Apr, 2016 Acute cystitis without hemat uria N30.00 [facility] [address] [id number] [address] [place] [id number] 16 Apr, 2016 Acute cystitis without hemat uria N30.00 ; Coronary artery disease I25.10 ; Low back pain M54.5 and Other chronic pain G89.29 [facility] [address] [id number] [address] [place] [id number] 13 Apr, 2016 Other chronic pain G89.29 [facility] [address] [id number] [address] [place] [address] March, Other chronic pain G89.29 [facility] [address] [id number] [address] [place] [phone] 18 Feb, 2016 [facility] [address] [id number] [address] [place] [id number] 15 Feb, 2016 Arthritis M19.90 [facility] [address] [id number] [address] [place] [phone] Feb, [facility] [address] [id number] [address] [place] [id number] 30 Jan, 2016 [facility] [address] [id number] [address] [place] [id number] Jan, [facility] [address] [id number] [address] [place] [address] Jan, Other chronic pain G89.29 [facility] [address] [id number] [address] [place] [address] Jan, Hypertension I10 ; Coronary artery disease I25.10 and Insomnia G47.00 [facility] [address] [id number] [address] [place] [address] Jan, [facility] [address] [id number] [address] [place] [phone] Dec, Right hip pain M25.551 [facility] [address] [id number] [address] [place] [phone] Dec, [facility] [address] [id number] [address] [place] [phone] Dec, [facility] [address] [id number] [address] [place] [phone] Dec, [facility] [address] [id number] [address] [place] [phone] Dec, Other chronic pain G89.29 [facility] [address] [id number] [address] [place] [id number] Dec, [facility] [address] [id number] [address] [place] [phone] Nov, [facility] [address] [id number] [address] [place] [phone] Nov, Other chronic pain G89.29 [facility] [address] [id number] [address] [place] [phone] Nov, Right hip pain M25.551 and C oronary artery disease I25.10 [facility] [address] [id number] [address] [place] [phone] Nov, Other chronic pain G89.29 [facility] [address] [id number] [address] [place] [id number] Oct, [facility] [address] [facility] [id number] [address] [place] [phone] Oct, [facility] [address] [id number] [address] [place] [id number] Sep, [facility] [address] [id number] [address] [place] [phone] Sep, [facility] [address] [id number] [address] [place] [phone] Aug, [facility] [address] [id number] [address] [place] [address] Aug, Hypertension I10 ; Coronary artery disease I25.10 and Arthritis M19.90 [facility] [address] [id number] [address] [place] [phone] Jun, [facility] [address] [facility] [id number] [address] [place] [id number] Jun, Essential hypertension, jayson gn 401.1 ; Other chronic pain 338.29 and Chronic airway obstruction, not elsewhere classified 496 [facility] [address] [id number] [address] [place] [phone] Jun, [facility] [address] [id number] [address] [place] [phone] Jun, [facility] [address] [facility] [id number] [address] [place] [id number] Jun, [facility] [address] [id number] [address] [place] [id number] May, [facility] [address] [id number] [address] [place] [id number] May, [facility] [address] [id number] [address] [place] [id number] Apr, [facility] [address] [id number] [address] [place] [id number] Apr, [facility] [address] [id number] [address] [place] [phone] Apr, [facility] [address] [id number] [address] [place] [address], [place] [address] March, [facility] [address] [id number] [address] [place] [address], [place] [address] March, [facility] [address] [id number] [address] [place] [address], [place] [address] March, [facility] [address] [id number] [address] [place] [address], [place] [address] March, [facility] [address] [id number] [address] [place] [address], [place] [address] March, Sialadenitis 527.2 [facility] [address] [id number] [address] [place] [address], [place] [address] Feb, [facility] [address] [id number] [address] [place] [address], [place] [address] Feb, [facility] [address] [id number] [address] [place] [address], [place] [address] Feb, [facility] [address] [id number] [address] [place] [address], [place] [address] Feb, [facility] [address] [id number] [address] [place] [address], [place] [address] Feb, [facility] [address] [id number] [address] [place] [address], [place] [address] Jan, [facility] [address] [id number] [address] [place] [phone] Jan, [facility] [address] [id number] [address] [place] [address], [place] [address] Jan, [facility] [address] [id number] [address] [place] [address], [place] [address] Jan, [facility] [address] [id number] [address] [place] [address], [place] [address] Jan, [facility] [address] [id number] [address] [place] [phone] Jan, [facility] [address] [id number] [address] [place] [address], [place] [address] Dec, [facility] [address] [id number] [address] [place] [address], [place] [address] Dec, [facility] [address] [id number] [address] [place] [address], [place] [address] Dec, [facility] [address] [id number] [address] [place] [address], [place] [address] Dec, [facility] [address] [id number] [address] [place] [address], [place] [address] Dec, [facility] [address] [id number] [address] [place] [address], [place] [address] Dec, [facility] [address] [id number] [address] [place] [address], [place] [address] Nov, [facility] [address] [id number] [address] [place] [address], [place] [address] Nov, [facility] [address] [id number] [address] [place] [address], [place] [address] Nov, [facility] [address] [id number] [address] [place] [address], [place] [address] Nov, [facility] [address] [id number] [address] [place] [address], [place] [address] Nov, [facility] [address] [id number] [address] [place] [address], [place] [address] Nov, [facility] [address] [id number] [address] [place] [address], [place] [address] Nov, [facility] [address] [id number] [address] [place] [address], [place] [address] Nov, [facility] [address] [id number] [address] [place] [address], [place] [address] Nov, [facility] [address] [id number] [address] [place] [address], [place] [address] Nov, [facility] [address] [id number] [address] [place] [address], [place] [address] Nov, [facility] [address] [id number] [address] [place] [address], [place] [address] Nov, [facility] [address] [id number] [address] [place] [address], [place] [address] Nov, [facility] [address] [id number] [address] [place] [address], [place] [address] Nov, [facility] [address] [id number] [address] [place] [address], [place] [address] Oct, [facility] [address] [id number] [address] [place] [address], [place] [address] Oct, [facility] [address] [id number] [address] [place] [address], [place] [address] Oct, [facility] [address] [id number] [address] [place] [address], [place] [address] Oct, [facility] [address] [id number] [address] [place] [address], [place] [address] Oct, [facility] [address] [id number] [address] [place] [address], [place] [address] 17 Oct, 2014 [facility] [address] [id number] [address] [place] [address], [place] [address] 17 Oct, 2014 [facility] [address] [id number] [address] [place] [address], [place] [address] Oct, [facility] [address] [id number] [address] [place] [address], [place] [address] Oct, [facility] [address] [id number] [address] [place] [address], [place] [address] Sep, [facility] [address] [id number] [address] [place] [address], [place] [address] Sep, [facility] [address] [id number] [address] [place] [address], [place] [address] Sep, [facility] [address] [id number] [address] [place] [address], [place] [address] Sep, [facility] [address] [id number] [address] [place] [address], [place] [address] Sep, [facility] [address] [id number] [address] [place] [address], [place] [address] Sep, [facility] [address] [id number] [address] [place] [address], [place] [address] Sep, [facility] [address] [id number] [address] [place] [address], [place] [address] Sep, [facility] [address] [id number] [address] [place] [address], [place] [address] Sep, [facility] [address] [id number] [address] [place] [address], [place] [address] Sep, [facility] [address] [id number] [address] [place] [address], [place] [address] Sep, [facility] [address] [id number] [address] [place] [address], [place] [address] Sep, [facility] [address] [id number] [address] [place] [address], [place] [address] Aug, [facility] [address] [id number] [address] [place] [address], [place] [address] Aug, [facility] [address] [id number] [address] [place] [address], [place] [address] Aug, [facility] [address] [id number] [address] [place] [address], [place] [address] Aug, [facility] [address] [id number] [address] [place] [address], [place] [address] Aug, [facility] [address] [id number] [address] [place] [address], [place] [address] 28 Aug, 2014 [facility] [address] [id number] [address] [place] [address], [place] [address] Aug, [facility] [address] [id number] [address] [place] [address], [place] [address] 17 Aug, 2014 [facility] [address] [id number] [address] [place] [address], [place] [address] 30 Jul, 2013 [facility] [address] [id number] [address] [place] [address], [place] [address] 30 Jul, 2013 [facility] [address] [id number] [address] [place] [address], [place] [address] 30 Jul, 2013 [facility] [address] [id number] [address] [place] [address], [place] [address] 30 Jul, 2013 [facility] [address] [id number] [address] [place] [address], [place] [address] 25 Jul, 2013 [facility] [address] [id number] [address] [place] [address], [place] [address] 25 Jul, 2013 [facility] [address] [id number] [address] [place] [address], [place] [address] 15 Jul, 2014 [facility] [address] [id number] [address] [place] [address], [place] [address] 15 Jul, 2014 [facility] [address] [id number] [address] [place] [address], [place] [address] 11 Jul, 2014 [facility] [address] [id number] [address] [place] [address], [place] [address] Jul, [facility] [address] [id number] [address] [place] [address], [place] [address] Jun, [facility] [address] [id number] [address] [place] [address], [place] [address] Jun, [facility] [address] [id number] [address] [place] [address], [place] [address] Jun, [facility] [address] [id number] [facility] [place] [address] Jun, [facility] [address] [id number] [address] [place] [address], [place] [address] Jun, [facility] [address] [id number] [address] [place] [address], [place] [address] Jun, [facility] [address] [id number] [address] [place] [address], [place] [address] Jun, [facility] [address] [id number] [address] [place] [address], [place] [address] Jun, [facility] [address] [id number] [address] [place] [address], [place] [address] Jun, [facility] [address] [id number] [address] [place] [address], [place] [address] Jun, [facility] [address] [id number] [address] [place] [address], [place] [address] Jun, [facility] [address] [id number] [address] [place] [address], [place] [address] Jun, [facility] [address] [id number] [address] [place] [address], [place] [address] Jun, [facility] [address] [id number] [address] [place] [address], [place] [address] Jun, [facility] [address] [id number] [address] [place] [address], [place] [address] Jun, [facility] [address] [id number] [address] [place] [address], [place] [address] Jun, [facility] [address] [id number] [address] [place] [address], [place] [address] Jun, [facility] [address] [id number] [address] [place] [address], [place] [address] Jun, [facility] [address] [id number] [address] [place] [address], [place] [address] Jun, [facility] [address] [id number] [facility] [place] [address] Jun, [facility] [address] [id number] [address] [place] [address], [place] [address] Jun, [facility] [address] [id number] [address] [place] [address], [place] [address] Jun, [facility] [address] [id number] [address] [place] [address], [place] [address] May, [facility] [address] [id number] [address] [place] [address], [place] [address] May, [facility] [address] [id number] [address] [place] [address], [place] [address] May, [facility] [address] [id number] [address] [place] [address], [place] [address] May, [facility] [address] [id number] [address] [place] [address], [place] [address] May, [facility] [address] [id number] [address] [place] [address], [place] [address] May, [facility] [address] [id number] [address] [place] [address], [place] [address] May, [facility] [address] [id number] [address] [place] [address], [place] [address] May, [facility] [address] [id number] [address] [place] [address], [place] [address] May, [facility] [address] [id number] [address] [place] [address], [place] [address] May, [facility] [address] [id number] [address] [place] [address], [place] [address] May, [facility] [address] [id number] [address] [place] [address], [place] [address] May, [facility] [address] [id number] [facility] [place] [address] May, [facility] [address] [id number] [facility] [place] [address] Apr, [facility] [address] [id number] [facility] [place] [address] Apr, [facility] [address] [id number] [facility] [place] [address] Apr, [facility] [address] [id number] [facility] [place] [address] Apr, [facility] [address] [id number] [facility] [place] [address] Apr, [facility] [address] [id number] [address] [place] [address], [place] [address] Apr, [facility] [address] [id number] [address] [place] [address], [place] [address] Apr, [facility] [address] [id number] [address] [place] [address], [place] [address] Apr, [facility] [address] [id number] [address] [place] [address], [place] [address] Apr, [facility] [address] [id number] [address] [place] [address], [place] [address] March, [facility] [address] [id number] [address] [place] [address], [place] [address] March, [facility] [address] [id number] [address] [place] [address], [place] [address] March, [facility] [address] [id number] [address] [place] [address], [place] [address] March, [facility] [address] [id number] [address] [place] [address], [place] [address] March, [facility] [address] [id number] [address] [place] [address], [place] [address] March, [facility] [address] [id number] [facility] [place] [address] March, [facility] [address] [id number] [address] [place] [address], [place] [address] March, [facility] [address] [id number] [address] [place] [address], [place] [address] March, [facility] [address] [id number] [address] [place] [address], [place] [address] March, [facility] [address] [id number] [address] [place] [address], [place] [address] March, [facility] [address] [id number] [address] [place] [address], [place] [address] March, [facility] [address] [id number] [address] [place] [address], [place] [address] March, [facility] [address] [id number] [address] [place] [address], [place] [address] March, [facility] [address] [id number] [address] [place] [address], [place] [address] March, [facility] [address] [id number] [address] [place] [address], [place] [address] March, [facility] [address] [id number] [address] [place] [address], [place] [address] March, [facility] [address] [id number] [address] [place] [address], [place] [address] March, [facility] [address] [id number] [address] [place] [address], [place] [address] March, [facility] [address] [id number] [address] [place] [address], [place] [address] March, [facility] [address] [id number] [address] [place] [address], [place] [address] Feb, [facility] [address] [id number] [facility] [place] [address] Feb, [facility] [address] [id number] [address] [place] [address], [place] [address] Feb, [facility] [address] [id number] [facility] [place] [address] Feb, [facility] [address] [id number] [address] [place] [address], [place] [address] Feb, [facility] [address] [id number] [address] [place] [address], [place] [address] Feb, [facility] [address] [id number] [address] [place] [address], [place] [address] Feb, [facility] [address] [id number] [address] [place] [address], [place] [address] Feb, [facility] [address] [id number] [address] [place] [address], [place] [address] Jan, [facility] [address] [id number] [address] [place] [address], [place] [address] Jan, [facility] [address] [id number] [address] [place] [address], [place] [address] Jan, [facility] [address] [id number] [address] [place] [address], [place] [address] Jan, [facility] [address] [id number] [address] [place] [address], [place] [address] Jan, [facility] [address] [id number] [address] [place] [address], [place] [address] Jan, [facility] [address] [id number] [address] [place] [address], [place] [address] Jan, [facility] [address] [id number] [address] [place] [address], [place] [address] Jan, [facility] [address] [id number] [address] [place] [address], [place] [address] Jan, [facility] [address] [id number] [facility] [place] [address] Jan, [facility] [address] [id number] [address] [place] [address], [place] [address] Dec, [facility] [address] [id number] [address] [place] [address], [place] [address] Dec, [facility] [address] [id number] [address] [place] [address], [place] [address] Dec, [facility] [address] [id number] [address] [place] [address], [place] [address] Dec, [facility] [address] [id number] [address] [place] [address], [place] [address] Dec, [facility] [address] [id number] [address] [place] [address], [place] [address] Dec, [facility] [address] [id number] [address] [place] [address], [place] [address] Dec, [facility] [address] [id number] [address] [place] [address], [place] [address] Dec, [facility] [address] [id number] [address] [place] [address], [place] [address] Nov, [facility] [address] [id number] [address] [place] [address], [place] [address] Nov, [facility] [address] [id number] [address] [place] [address], [place] [address] Nov, [facility] [address] [id number] [address] [place] [address], [place] [address] Nov, [facility] [address] [id number] [address] [place] [address], [place] [address] Nov, [facility] [address] [id number] [address] [place] [address], [place] [address] Nov, [facility] [address] [id number] [address] [place] [address], [place] [address] Nov, [facility] [address] [id number] [address] [place] [address], [place] [address] Nov, [facility] [address] [id number] [address] [place] [address], [place] [address] Nov, [facility] [address] [id number] [address] [place] [address], [place] [address] Nov, [facility] [address] [id number] [address] [place] [address], [place] [address] Nov, [facility] [address] [id number] [address] [place] [address], [place] [address] Nov, [facility] [address] [id number] [address] [place] [address], [place] [address] Nov, [facility] [address] [id number] [address] [place] [address], [place] [address] Oct, [facility] [address] [id number] [address] [place] [address], [place] [address] 30 Oct, 2013 [facility] [address] [id number] [address] [place] [address], [place] [address] Oct, [facility] [address] [id number] [address] [place] [address], [place] [address] Oct, [facility] [address] [id number] [address] [place] [address], [place] [address] Oct, [facility] [address] [id number] [address] [place] [address], [place] [address] Oct, [facility] [address] [id number] [address] [place] [address], [place] [address] 18 Oct, 2013 [facility] [address] [id number] [address] [place] [address], [place] [address] 18 Oct, 2013 [facility] [address] [id number] [address] [place] [address], [place] [address] Oct, [facility] [address] [id number] [address] [place] [address], [place] [address] Oct, [facility] [address] [id number] [address] [place] [address], [place] [address] Oct, [facility] [address] [id number] [address] [place] [address], [place] [address] Oct, [facility] [address] [id number] [address] [place] [address], [place] [address] Oct, [facility] [address] [id number] [address] [place] [address], [place] [address] Oct, [facility] [address] [id number] [address] [place] [address], [place] [address] Sep, [facility] [address] [id number] [address] [place] [address], [place] [address] Sep, [facility] [address] [id number] [address] [place] [address], [place] [address] Sep, [facility] [address] [id number] [address] [place] [address], [place] [address] Sep, [facility] [address] [id number] [address] [place] [address], [place] [address] Sep, [facility] [address] [id number] [address] [place] [address], [place] [address] Sep, [facility] [address] [id number] [address] [place] [address], [place] [address] Sep, [facility] [address] [id number] [address] [place] [address], [place] [address] Sep, [facility] [address] [id number] [address] [place] [address], [place] [address] Sep, [facility] [address] [id number] [address] [place] [address], [place] [address] Sep, [facility] [address] [id number] [address] [place] [address], [place] [address] Aug, [facility] [address] [id number] [address] [place] [address], [place] [address] Aug, [facility] [address] [id number] [address] [place] [address] Aug, [facility] [address] [id number] [address] [place] [address] Aug, [facility] [address] [id number] [address] [place] [address] Aug, [facility] [address] [id number] [address] [place] [address], [place] [address] Aug, [facility] [address] [id number] [address] [place] [address] Aug, [facility] [address] [id number] [address] [place] [address] Aug, [facility] [address] [id number] [address] [place] [address] Aug, [facility] [address] [id number] [address] [place] [address] Aug, [facility] [address] [id number] [address] [place] [address] 18 Aug, 2013 [facility] [address] [id number] [address] [place] [address] 18 Aug, 2013 [facility] [address] [id number] [address] [place] [address] 18 Aug, 2013 [facility] [address] [id number] [address] [place] [address], [place] [address] 18 Aug, 2013 [facility] [address] [id number] [address] [place] [address] 17 Aug, 2013 [facility] [address] [id number] [address] [place] [address] 14 Aug, 2013 [facility] [address] [id number] [address] [place] [address], [place] [address] 14 Aug, 2013 [facility] [address] [id number] [address] [place] [address], [place] [address] 01 Aug, 2013 [facility] [address] [id number] [address] [place] [address], [place] [address] 20 Jul, 2013 [facility] [address] [id number] [address] [place] [address], [place] [address] 19 Jul, 2013 [facility] [address] [id number] [address] [place] [address], [place] [address] 18 Jul, 2013 [facility] [address] [id number] [address] [place] [address], [place] [address] 11 Jul, 2013 [facility] [address] [id number] [address] [place] [address], [place] [address] Jul, [facility] [address] [id number] [address] [place] [address], [place] [address] Jun, [facility] [address] [id number] [address] [place] [address], [place] [address] Jun, [facility] [address] [id number] [address] [place] [address], [place] [address] Jun, [facility] [address] [id number] [address] [place] [address], [place] [address] 15 Jun, 2013 [facility] [address] [id number] [address] [place] [address], [place] [address] 14 Jun, 2013 [facility] [address] [id number] [address] [place] [address], [place] [address] Jun, [facility] [address] [id number] [address] [place] [address], [place] [address] Jun, [facility] [address] [id number] [address] [place] [address], [place] [address] 08 Jun, 2013 [facility] [address] [id number] [address] [place] [address], [place] [address] Jun, [facility] [address] [id number] [address] [place] [address], [place] [address] Jun, [facility] [address] [id number] [address] [place] [address], [place] [address] May, [facility] [address] [id number] [address] [place] [address], [place] [address] May, [facility] [address] [id number] [address] [place] [address], [place] [address] May, [facility] [address] [id number] [address] [place] [address], [place] [address] May, [facility] [address] [id number] [address] [place] [address], [place] [address] May, [facility] [address] [id number] [address] [place] [address], [place] [address] May, [facility] [address] [id number] [address] [place] [address], [place] [address] May, [facility] [address] [id number] [address] [place] [address], [place] [address] May, [facility] [address] [id number] [address] [place] [address], [place] [address] May, [facility] [address] [id number] [address] [place] [address], [place] [address] Apr, [facility] [address] [id number] [address] [place] [address], [place] [address] Apr, [facility] [address] [id number] [address] [place] [address], [place] [address] Apr, [facility] [address] [id number] [address] [place] [address], [place] [address] Apr, [facility] [address] [id number] [address] [place] [address], [place] [address] Apr, [facility] [address] [id number] [address] [place] [address], [place] [address] 04 Apr, 2013 [facility] [address] [id number] [address] [place] [address], [place] [address] Apr, [facility] [address] [id number] [address] [place] [address], [place] [address] March, [facility] [address] [id number] [address] [place] [address], [place] [address] Feb, [facility] [address] [id number] [address] [place] [address], [place] [address] Feb, [facility] [address] [id number] [address] [place] [address], [place] [address] Feb, [facility] [address] [id number] [address] [place] [address], [place] [address] Jan, [facility] [address] [id number] [address] [place] [address], [place] [address] Jan, [facility] [address] [id number] [address] [place] [address], [place] [address] Jan, [facility] [address] [id number] [address] [place] [address], [place] [address] Jan, [facility] [address] [id number] [address] [place] [address], [place] [address] Jan, [facility] [address] [id number] [address] [place] [address], [place] [address] Jan, [facility] [address] [id number] [address] [place] [address], [place] [address] Jan, [facility] [address] [id number] [address] [place] [address], [place] [address] Jan, [facility] [address] [id number] [address] [place] [address], [place] [address] Dec, [facility] [address] [id number] [address] [place] [address], [place] [address] Dec, [facility] [address] [id number] [address] [place] [address], [place] [address] 13 Dec, 2012 [facility] [address] [id number] [address] [place] [address], [place] [address] 11 Dec, 2012 [facility] [address] [id number] [address] [place] [address], [place] [address] 07 Dec, 2012 [facility] [address] [id number] [address] [place] [address], [place] [address] 06 Dec, 2012 [facility] [address] [id number] [address] [place] [address], [place] [address] 05 Dec, 2012 [facility] [address] [id number] [address] [place] [address], [place] [address] Nov, [facility] [address] [id number] [address] [place] [address], [place] [address] Nov, [facility] [address] [id number] [address] [place] [address], [place] [address] Nov, [facility] [address] [id number] [address] [place] [address], [place] [address] Nov, [facility] [address] [id number] [address] [place] [address], [place] [address] Nov, [facility] [address] [id number] [address] [place] [address], [place] [address] Nov, [facility] [address] [id number] [address] [place] [address], [place] [address] Nov, [facility] [address] [id number] [address] [place] [address], [place] [address] Oct, [facility] [address] [id number] [address] [place] [address], [place] [address] Oct, [facility] [address] [id number] [address] [place] [address], [place] [address] Oct, [facility] [address] [id number] [address] [place] [address], [place] [address] Oct, [facility] [address] [id number] [address] [place] [address], [place] [address] Oct, [facility] [address] [id number] [address] [place] [address], [place] [address] Oct, [facility] [address] [id number] [address] [place] [address], [place] [address] Oct, [facility] [address] [id number] [address] [place] [address], [place] [address] Oct, [facility] [address] [id number] [address] [place] [address], [place] [address] Oct, [facility] [address] [id number] [address] [place] [address], [place] [address] Oct, [facility] [address] [id number] [address] [place] [address], [place] [address] Oct, [facility] [address] [id number] [address] [place] [address], [place] [address] Oct, [facility] [address] [id number] [address] [place] [address], [place] [address] Sep, [facility] [address] [id number] [address] [place] [address], [place] [address] Sep, [facility] [address] [id number] [address] [place] [address], [place] [address] Sep, [facility] [address] [id number] [address] [place] [address], [place] [address] Sep, [facility] [address] [id number] [address] [place] [address], [place] [address] Sep, [facility] [address] [id number] [address] [place] [address], [place] [address] Sep, [facility] [address] [id number] [address] [place] [address], [place] [address] Sep, [facility] [address] [id number] [address] [place] [address], [place] [address] Sep, [facility] [address] [id number] [address] [place] [address], [place] [address] Sep, [facility] [address] [id number] [address] [place] [address], [place] [address] Sep, [facility] [address] [id number] [address] [place] [address], [place] [address] Sep, [facility] [address] [id number] [address] [place] [address], [place] [address] Aug, [facility] [address] [id number] [address] [place] [address], [place] [address] Aug, [facility] [address] [id number] [address] [place] [address], [place] [address] Aug, [facility] [address] [id number] [address] [place] [address], [place] [address] Aug, [facility] [address] [id number] [address] [place] [address], [place] [address] Aug, [facility] [address] [id number] [address] [place] [address], [place] [address] Aug, [facility] [address] [id number] [address] [place] [address], [place] [address] Aug, [facility] [address] [id number] [address] [place] [address], [place] [address] Aug, [facility] [address] [id number] [address] [place] [address], [place] [address] Aug, [facility] [address] [id number] [address] [place] [address], [place] [address] Aug, [facility] [address] [id number] [address] [place] [address], [place] [address] 22 Jul, 2012 [facility] [address] [id number] [address] [place] [address], [place] [address] Jul, [facility] [address] [id number] [facility] [place] [address] Jul, [facility] [address] [id number] [address] [place] [address], [place] [address] Jul, [facility] [address] [id number] [address] [place] [address], [place] [address] Jun, [facility] [address] [id number] [address] [place] [address], [place] [address] Jun, [facility] [address] [id number] [address] [place] [address], [place] [address] Jun, [facility] [address] [id number] [address] [place] [address], [place] [address] Jun, [facility] [address] [id number] [address] [place] [address], [place] [address] Jun, [facility] [address] [id number] [address] [place] [address], [place] [address] Jun, [facility] [address] [id number] [address] [place] [address], [place] [address] Jun, [facility] [address] [id number] [address] [place] [address], [place] [address] May, [facility] [address] [id number] [address] [place] [address], [place] [address] May, [facility] [address] [id number] [address] [place] [address], [place] [address] May, [facility] [address] [id number] [address] [place] [address], [place] [address] May, [facility] [address] [id number] [address] [place] [address], [place] [address] May, [facility] [address] [id number] [address] [place] [address], [place] [address] Apr, [facility] [address] [id number] [address] [place] [address], [place] [address] 18 Apr, 2012 [facility] [address] [id number] [address] [place] [address], [place] [address] Apr, [facility] [address] [id number] [address] [place] [address], [place] [address] Apr, [facility] [address] [id number] [address] [place] [address], [place] [address] Apr, [facility] [address] [id number] [address] [place] [address], [place] [address] March, [facility] [address] [id number] [address] [place] [address], [place] [address] March, [facility] [address] [id number] [address] [place] [address], [place] [address] March, [facility] [address] [id number] [address] [place] [address], [place] [address] March, [facility] [address] [id number] [address] [place] [address], [place] [address] March, [facility] [address] [id number] [address] [place] [address], [place] [address] March, [facility] [address] [id number] [address] [place] [address], [place] [address] March, [facility] [address] [id number] [address] [place] [address], [place] [address] March, [facility] [address] [id number] [address] [place] [address], [place] [address] March, [facility] [address] [id number] [address] [place] [address], [place] [address] March, [facility] [address] [id number] [address] [place] [address], [place] [address] Feb, [facility] [address] [id number] [address] [place] [address], [place] [address] Feb, [facility] [address] [id number] [address] [place] [address], [place] [address] Feb, [facility] [address] [id number] [address] [place] [address], [place] [address] Feb, [facility] [address] [id number] [address] [place] [address], [place] [address] Feb, [facility] [address] [id number] [address] [place] [address], [place] [address] Feb, [facility] [address] [id number] [address] [place] [address], [place] [address] Feb, [facility] [address] [id number] [address] [place] [address], [place] [address] Feb, [facility] [address] [id number] [address] [place] [address], [place] [address] Feb, [facility] [address] [id number] [address] [place] [address], [place] [address] Jan, [facility] [address] [id number] [address] [place] [address], [place] [address] Jan, [facility] [address] [id number] [address] [place] [address], [place] [address] 05 Jan, 2012 [facility] [address] [id number] [address] [place] [address], [place] [address] Jan, [facility] [address] [id number] [address] [place] [address], [place] [address] Dec, [facility] [address] [id number] [address] [place] [address], [place] [address] Dec, [facility] [address] [id number] [address] [place] [address], [place] [address] Nov, [facility] [address] [id number] [address] [place] [address], [place] [address] Nov, [facility] [address] [id number] [address] [place] [id number] 18 Nov, 2011 [facility] [address] [id number] [address] [place] [id number] Nov, [facility] [address] [id number] [address] [place] [phone] Nov, [facility] [address] [id number] [address] [place] [id number] Oct, [facility] [address] [id number] [address] [place] [phone] Oct, [facility] [address] [id number] [address] [place] [id number] Oct, [facility] [address] [id number] [address] [place] [phone] Oct, [facility] [address] [id number] [address] [place] [id number] Oct, [facility] [address] [id number] [address] [place] [id number] Oct, [facility] [address] [id number] [address] [place] [id number] Oct, [facility] [address] [id number] [address] [place] [id number] Oct, [facility] [address] [id number] [address] [place] [phone] Sep, IMMUNIZATIONS Vaccine Route Administration Date Status influenza IIV3 (history) Unknown Aug 06, 2013 Adminis tered SOCIAL HISTORY Never Assessed REASON FOR VISIT PLAN OF CARE VITAL SIGNS Height 62 in 2013-08-06 Weight 173 lbs 2013-08-06 Temperature 98.2 degrees Fahrenheit 2013-08-06 Heart Rate 86 bpm 2013-08-06 Respiratory Rate 22 2013-08-06 Blood pressure systolic 140 mmHg 2013-08-06 Blood pressure diastolic 70 mmHg 2013-08-06 MEDICATIONS Unknown Medications RESULTS No Results PROCEDURES Procedure Date Ordered Result Body Site ADMN FLU VAC NO FEE SCHED SAME DAY Aug 06, 2013 MEASURE BLOOD OXYGEN LEVEL Aug 06, 2013 INSTRUCTIONS MEDICATIONS ADMINISTERED No Known [...] Hospitalization History [facility]- Urosepsis, ab d pain and fever, discharged 11/27/2017 11/26/2017 Hospitalization History [facility]- Went Unrepsonsive, Hit head 2017 Hospitalization History [facility]- Back Pain 05/05/ 8
--- OUTSIDE RECORDS SUMMARY | 2020-06-18 15:38 | XMS REPORT ---
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 Care Youth Director Name Role Phone Migration, Doctor Unavailable Unavailable PROBLEMS Type Condition ICD9-CM Code XUI28-IC Code Onset Dates Condition S tatus SNOMED Code Problem Hypertension I10 Active 4739881 3 Problem Hyperlipidemia E78.5 Active 46792 004 Problem Coronary artery disease I25.10 Active 33536703 Problem Low back pain M54.5 Active 430035 009 Problem Other chronic pain G89.29 Active 8 1864501 Problem Ventral hernia without obstruction or gangrene K43 .9 Active 819299356 Problem Type 2 diabetes mellitus wit hout complication, without long-term current use of insulin E11.9 Active 380735058 Problem Anxiety F41.9 Active 66580620 Problem Peripheral vascular disease I73.9 Ac tive 441356491 Problem Insomnia G47.00 Active 491819714 Problem Microcytic anemia D50.9 Active 23 0561220 Problem Pharyngeal dysphagia R13.13 Active 50829720789581 Problem Other iron deficiency anemia D50.8 A ctive 34205303 Problem Reactive depression F32.9 Active 57565552 Problem Paroxysmal atrial fibrillation I48.0 Active 267463175 Problem Postmenopausal atrophic vaginitis N95.2 Active 74762456 Problem Encounter for suprapubic catheter care Z43.5 Active 691744022 Problem Neurogenic bladder N31.9 Active 3 06210711 ALLERGIES No Information ENCOUNTERS Encounter Location Date Diagnosis [place] [address] [address] [facility] [id number] [address] [place] [address] 17 Apr, 2020 Anxiety F41.9 and Strain of right shoulder, subsequent encounter S46.911D [place] [address] [id number] [address] [place] [address] 04 Apr, 2020 [facility] [address] [facility] [id number] [address] [place] [address] March, [facility] [address] [id number] [address] [place] [address] March, Anxiety F41.9 and Strain of right shoulder, subsequent encounter S46.911D [facility] [address] [id number] [address] [place] [address] Feb, Anxiety F41.9 and Strain of right shoulder, subsequent encounter S46.911D [facility] [address] [id number] [address] [place] [address] Jan, Anxiety F41.9 and Strain of right shoulder, subsequent encounter S46.911D [facility] [address] [id number] [address] [place] [address] Jan, [facility] [address] [place] [id number] Jan, Neurogenic bladder N31.9 [facility] [address] [id number] [address] [place] [address] Dec, [facility] [address] [id number] [address] [place] [address] Dec, [facility] [address] [id number] [address] [place] [address] Dec, Anxiety F41.9 and Strain of right shoulder, subsequent encounter S46.911D [facility] [address] [id number] [address] [place] [address] 10 Dec, 2019 Other iron deficiency anemia D50.8 [facility] [address] [id number] [address] [place] [address] Dec, [facility] [employer] [facility] [address] [place] [id number] Dec, Encounter for suprapubic catheter care Z 43.5 and Microcytic anemia D50.9 [facility] [address] [id number] [address] [place] [address] Dec, [facility] [address] [id number] [address] [place] [address] Nov, Anxiety F41.9 and Strain of right shoulder, subsequent encounter S46.911D [facility] [address] [id number] [address] [place] [address] Nov, Hypertension I10 [facility] [address] [place] [id number] Nov, Pneumonia of both lungs due to infectiou s organism, unspecified part of lung J18.9 and Suprapubic catheter Z93.59 [place] [address] [id number] [address] [place] [address] Nov, Hypertension I10 and Reactiv e depression F32.9 [place] [address] [id number] [address] [place] [address] Oct, Strain of right shoulder, scherer bsequent encounter S46.911D and Anxiety F41.9 [place] [address] [id number] [address] [place] [address] Oct, [facility] [employer] [address] [place] [id number] Oct, Suprapubic catheter Z93.59 and Candidias is, intertriginous B37.2 [facility] [address] [id number] [address] [place] [address] Oct, Suprapubic catheter Z93.59 [facility] [address] [id number] [address] [place] [address] Oct, Anxiety F41.9 and Strain of right shoulder, subsequent encounter S46.911D [facility] [address] [id number] [address] [place] [address] Sep, [place] [address] [id number] [address] [place] [address] Sep, [place] [address] [id number] [address] [place] [address] Sep, [facility] [employer] [address] [place] [id number] Sep, Suprapubic catheter Z93.59 [facility] [address] [id number] [address] [place] [address] Sep, Anxiety F41.9 and Strain of right shoulder, subsequent encounter S46.911D [facility] [address] [id number] [address] [place] [address] Aug, [facility] [address] [id number] [address] [place] [address] Aug, [facility] [address] [id number] [address] [place] [address] Aug, Anxiety F41.9 and Strain of right shoulder, subsequent encounter S46.911D [facility] [address] [facility] [facility] [place] [id number] Aug, Suprapubic catheter Z93.59 [facility] [address] [id number] [address] [place] [address] Jul, Strain of right shoulder, scherer bsequent encounter S46.911D and Anxiety F41.9 [facility] [address] [id number] [address] [place] [address] Jul, Anxiety F41.9 [facility] [address] [id number] [address] [place] [address] Jun, [facility] [address] [id number] [address] [place] [address] Jun, [facility] [address] [id number] [address] [place] [address] Jun, [facility] [address] [id number] [address] [place] [address] Jun, Strain of right shoulder, scherer bsequent encounter S46.911D [facility] [address] [id number] [address] [place] [address] Jun, Strain of right shoulder, scherer bsequent encounter S46.911D [place] [address] [id number] [address] [place] [address] Jun, Anxiety F41.9 [facility] [address] [place] [id number] Jun, Neurogenic bladder N31.9 and Anxiety F41 .9 [facility] [address] [place] [id number] May, Anxiety F41.9 [place] [address] [id number] [address] [place] [address] May, Dysuria R30.0 [place] [address] [id number] [address] [place] [address] May, Strain of right shoulder, scherer bsequent encounter S46.911D and Anxiety F41.9 [place] [address] [id number] [address] [place] [address] Apr, [facility] [address] [place] [address] Apr, Strain of right shoulder, subsequent enc ounter S46.911D [place] [address] [id number] [address] [place] [address] 14 Apr, 2019 Strain of right shoulder, scherer bsequent encounter S46.911D and Anxiety F41.9 [facility] [address] [place] [id number] 13 Apr, 2019 Type 2 diabetes mellitus without complic ation, without long-term current use of insulin E11.9 and Neurogenic bladder N31.9 [facility] [address] [place] [address] Apr, Strain of right shoulder, subsequent enc ounter S46.911D ; History of GI bleed Z87.19 ; Neurogenic bladder N31.9 and Reactive depression F32.9 [place] [address] [id number] [address] [place] [address] 10 Apr, 2019 Acute pain of left shoulder M25.512 [place] [address] [id number] [address] [place] [address] Apr, [facility] [address] [id number] [address] [place] [address] Apr, 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 F41.9 and 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 [facility] [address] [place] [id number] March, Gastrointestinal hemorrhage associated w ith acute gastritis K29.01 [facility] [address] [id number] [address] [place] [address] March, [facility] [employer] [address] [place] [id number] March, Bronchitis J40 [facility] [address] [id number] [address] [place] [address] March, Cough R05 [facility] [address] [id number] [address] [place] [address] March, Other chronic pain G89.29 [facility] [address] [id number] [address] [place] [address] March, Anxiety F41.9 [facility] [address] [id number] [address] [place] [address] March, [facility] [address] [id number] [address] [place] [address] Feb, Other chronic pain G89.29 [facility] [address] [id number] [address] [place] [address] Feb, Anxiety F41.9 [facility] [address] [id number] [address] [place] [address] Feb, Other chronic pain G89.29 [facility] [employer] [address] [place] [id number] Feb, Neurogenic bladder N31.9 and Suprapubic catheter Z93.59 [facility] [address] [id number] [address] [place] [address] Jan, Anxiety F41.9 [facility] [address] [id number] [address] [place] [address] Dec, Anxiety F41.9 [facility] [address] [id number] [address] [place] [address] Dec, Other chronic pain G89.29 an d Anxiety F41.9 [facility] [address] [id number] [address] [place] [address] Dec, Via [facility] [address] [place] [id number] Dec, Neurogenic bladder N31.9 and Suprapubic catheter Z93.59 [facility] [address] [id number] [address] [place] [address] Nov, Other chronic pain G89.29 an d Anxiety F41.9 [facility] [address] [id number] [address] [place] [address] Nov, [facility] [address] [place] [id number] Nov, Suprapubic catheter Z93.59 [facility] [address] [id number] [address] [place] [address] Oct, Other chronic pain G89.29 an d Anxiety F41.9 [facility] [address] [id number] [address] [place] [address] Oct, [facility] [address] [id number] [address] [place] [address] Oct, Suprapubic catheter Z93.59 [facility] [address] [id number] [address] [place] [address] Oct, [facility] [employer] [address] [place] [id number] Oct, [facility] [address] [id number] [address] [place] [address] Oct, Anxiety F41.9 [facility] [address] [id number] [address] [place] [address] Oct, Anxiety F41.9 [facility] [address] [place] [id number] Oct, Other chronic pain G89.29 [facility] [address] [id number] [address] [place] [address] Sep, Other chronic pain G89.29 [facility] [address] [place] [address] Sep, Suprapubic catheter Z93.59 and Cervicalg ia M54.2 [facility] [address] [id number] [address] [place] [address] Sep, [facility] [address] [id number] [address] [place] [address] Sep, [facility] [address] [id number] [address] [place] [address] Sep, [facility] [employer] [address] [place] [id number] Aug, Cystitis N30.90 [facility] [address] [id number] [address] [place] [address] Aug, [facility] [address] [id number] [address] [place] [address] Aug, Other chronic pain G89.29 [facility] [address] [id number] [address] [place] [address] Aug, [facility] [employer] [facility] [address] [place] [id number] Aug, Encounter for suprapubic catheter care Z 43.5 [facility] [address] [id number] [address] [place] [address] Jul, [facility] [address] [place] [id number] Jul, [facility] [address] [id number] [address] [place] [address] Jul, Other chronic pain G89.29 [facility] [address] [id number] [address] [place] [address] Jul, [facility] [address] [id number] [address] [place] [address] Jul, [facility] [address] [place] [id number] Jun, Postmenopausal atrophic vaginitis N95.2 [facility] [address] [id number] [address] [place] [address] Jun, Other chronic pain G89.29 [facility] [address] [id number] [address] [place] [address] Jun, [facility] [address] [place] [address] May, Anxiety F41.9 ; Type 2 diabetes mellitus without complication, without long-term current use of insulin E11.9 ; Hypertension I10 ; Low back pain M54.5 ; Paroxysmal atrial fibrillation I48.0 and 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 [facility] [address] [id number] [address] [place] [address] May, Other chronic pain G89.29 [facility] [address] [place] [id number] May, Low back pain M54.5 [facility] [address] [id number] [address] [place] [address] May, [facility] [address] [id number] [address] [place] [address] Apr, Other chronic pain G89.29 [facility] [address] [id number] [address] [place] [address] Apr, [facility] [address] [id number] [address] [place] [address] Apr, [facility] [address] [place] [id number] Apr, Closed compression fracture of L3 lumbar vertebra with routine healing, subsequent encounter S32.030D [facility] [employer] [facility] [address] [place] [id number] 14 Apr, 2018 Low back pain M54.5 [facility] [facility] [address] [place] [address] 12 Apr, 2018 Coccydynia M53.3 [facility] [address] [id number] [address] [place] [address] March, [facility] [address] [id number] [address] [place] [address] March, Other chronic pain G89.29 [facility] [address] [id number] [address] [place] [address] March, [facility] [address] [id number] [address] [place] [address] March, [facility] [address] [id number] [address] [place] [address] Feb, [facility] [address] [id number] [address] [place] [address] Feb, Other chronic pain G89.29 [facility] [address] [place] [address] Feb, Other chronic pain G89.29 and Anxiety F4 1.9 [facility] [address] [id number] [address] [place] [address] Feb, [facility] [address] [id number] [address] [place] [address] Jan, [facility] [address] [id number] [address] [place] [address] Jan, [facility] [address] [id number] [address] [place] [address] Jan, [facility] [address] [id number] [address] [place] [address] Jan, [facility] [address] [facility] [id number] [address] [place] [address] Dec, [facility] [address] [place] [address] Dec, Peripheral vascular disease I73.9 ; 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 ; Other chronic pain G89.29 ; Anxiety F41.9 ; Reactive depression F32.9 ; Insomnia G47.00 and Type 2 diabetes mellitus without complication, without long-term current use of insulin E11.[address] [id number] [address] Nov, [facility] [address] [id number] [place] [id number] Nov, Anxiety F41.9 [facility] [address] [facility] [id number] [address] [place] [address] Nov, [facility] [address] [id number] [place] [id number] Nov, Anxiety F41.9 [facility] [address] [place] [address] Nov, Status post surgery Z98.890 ; Confused R 41.0 ; Anxiety F41.9 and Other chronic pain G89.29 [facility] [address] [id number] [place] [address] Nov, Other chronic pain G89.29 [facility] [address] [facility] [id number] [address] [place] [address] Oct, [facility] [address] [id number] [place] [id number] Oct, Other chronic pain G89.29 [facility] [address] [facility] [id number] [address] [place] [address] Oct, Anxiety F41.9 [facility] [address] [id number] [place] [id number] Sep, Other chronic pain G89.29 [facility] [address] [id number] [place] [id number] Sep, [facility] [employer] [address] [place] [id number] Aug, Dysuria R30.0 and Anxiety F41.9 [facility] [address] [id number] [address] [place] [address] Aug, [facility] [address] [id number] [place] [address] Aug, Other chronic pain G89.29 [facility] [address] [id number] [address] [place] [address] Jul, Other chronic pain G89.29 [facility] [address] [id number] [place] [id number] Jun, [facility] [address] [id number] [place] [id number] Jun, Other chronic pain G89.29 [facility] [address] [id number] [address] [place] [address] Jun, [facility] [address] [id number] [address] [place] [address] May, Other chronic pain G89.29 [facility] [address] [id number] [address] [place] [address] Apr, Other chronic pain G89.29 [facility] [address] [place] [id number] Apr, Reactive depression F32.9 and Pharyngeal dysphagia R13.13 [facility] [address] [id number] [address] [place] [address] Apr, Urinary tract infection with out hematuria, site unspecified N39.0 [facility] [address] [id number] [address] [place] [address] March, Other chronic pain G89.29 [facility] [address] [id number] [address] [place] [address] Feb, Other chronic pain G89.29 [facility] [address] [id number] [address] [place] [address] Feb, [facility] [address] [id number] [facility] [facility] [place] [id number] Feb, [facility] [employer] [facility] [address] [place] [id number] Feb, Dysuria R30.0 and Ventral hernia without obstruction or gangrene K43.9 [facility] [address] [id number] [address] [place] [address] Jan, Other chronic pain G89.29 [facility] [address] [id number] [place] [id number] Dec, Other chronic pain G89.29 [facility] [address] [facility] [id number] [address] [place] [address] Nov, Other chronic pain G89.29 [facility] [address] [place] [id number] Nov, Lymphadenitis I88.9 [facility] [address] [facility] [id number] [address] [place] [address] Nov, Other chronic pain G89.29 [facility] [address] [facility] [id number] [address] [place] [address] Nov, [facility] [address] [id number] [place] [id number] Nov, Other chronic pain G89.29 [facility] [employer] [facility] [address] [place] [address] Oct, Low back pain M54.5 ; Hypertension I10 a nd Type 2 diabetes mellitus without complication, without long-term current use of insulin E11.9 [facility] [address] [facility] [id number] [address] [place] [id number] Oct, [facility] [address] [id number] [address] [place] [phone] Oct, [facility] [address] [id number] [address] [place] [phone] Oct, [facility] [address] [id number] [address] [place] [id number] Oct, [facility] [address] [id number] [address] [place] [phone] Sep, [facility] [address] [id number] [address] [place] [id number] Sep, [facility] [address] [id number] [address] [place] [phone] Aug, Other chronic pain G89.29 [facility] [address] [id number] [address] [place] [id number] Jul, [facility] [address] [id number] [address] [place] [phone] Jul, [facility] [address] [id number] [address] [place] [id number] Jul, [facility] [address] [id number] [address] [place] [phone] Jun, [facility] [address] [id number] [address] [place] [id number] Jun, Via [facility] [address] [place] [id number] Jun, Low back pain M54.5 ; Other chronic pain G89.29 and Coronary artery disease I25.10 [facility] [address] [id number] [address] [place] [phone] Jun, [facility] [address] [id number] [address] [place] [phone] May, [facility] [address] [id number] [address] [place] [id number] May, [facility] [address] [id number] [address] [place] [id number] 13 May, 2016 Other chronic pain G89.29 [facility] [address] [id number] [address] [place] [id number] 13 May, 2016 [facility] [facility] [address] [id number] [address] [place] [address] 28 Apr, 2016 [facility] [address] [id number] [address] [place] [address] 17 Apr, 2016 Acute cystitis without hemat uria N30.00 [facility] [address] [id number] [address] [place] [address] 16 Apr, 2016 Acute cystitis without hemat uria N30.00 ; Coronary artery disease I25.10 ; Low back pain M54.5 and Other chronic pain G89.29 [facility] [address] [id number] [address] [place] [address] 13 Apr, 2016 Other chronic pain G89.29 [facility] [address] [id number] [address] [place] [address] March, Other chronic pain G89.29 [facility] [address] [id number] [address] [place] [address] 18 Feb, 2016 [facility] [address] [id number] [address] [place] [address] 15 Feb, 2016 Arthritis M19.90 [facility] [address] [id number] [address] [place] [address] Feb, [facility] [address] [id number] [address] [place] [address] 30 Jan, 2016 [facility] [address] [id number] [address] [place] [address] Jan, [facility] [address] [id number] [address] [place] [address] Jan, Other chronic pain G89.29 [facility] [address] [id number] [address] [place] [address] Jan, Hypertension I10 ; Coronary artery disease I25.10 and Insomnia G47.00 [facility] [address] [id number] [address] [place] [address] Jan, [facility] [address] [id number] [address] [place] [address] Dec, Right hip pain M25.551 [facility] [address] [id number] [address] [place] [address] Dec, [facility] [address] [id number] [address] [place] [address] Dec, [facility] [address] [id number] [address] [place] [address] Dec, [facility] [address] [id number] [address] [place] [address] Dec, Other chronic pain G89.29 [facility] [address] [id number] [address] [place] [address] Dec, [facility] [address] [id number] [address] [place] [address] Nov, [facility] [address] [id number] [address] [place] [address] Nov, Other chronic pain G89.29 [facility] [address] [id number] [address] [place] [address] Nov, Right hip pain M25.551 and C oronary artery disease I25.10 [facility] [address] [id number] [address] [place] [address] Nov, Other chronic pain G89.29 [facility] [address] [id number] [address] [place] [address] Oct, [facility] [address] [facility] [id number] [address] [place] [address] Oct, [facility] [address] [id number] [address] [place] [address] Sep, [facility] [address] [id number] [address] [place] [address] Sep, [facility] [address] [id number] [address] [place] [address] Aug, [facility] [address] [id number] [address] [place] [address] Aug, Hypertension I10 ; Coronary artery disease I25.10 and Arthritis M19.90 [facility] [address] [id number] [address] [place] [address] Jun, [facility] [address] [facility] [id number] [address] [place] [address] Jun, Essential hypertension, jayson gn 401.1 ; Other chronic pain 338.29 and Chronic airway obstruction, not elsewhere classified 496 [facility] [address] [id number] [address] [place] [address] Jun, [facility] [address] [id number] [address] [place] [address] Jun, [facility] [address] [facility] [id number] [address] [place] [address] Jun, [facility] [address] [id number] [address] [place] [address] May, [facility] [address] [id number] [address] [place] [address] May, [facility] [address] [id number] [address] [place] [address] Apr, [facility] [address] [id number] [address] [place] [address] Apr, [facility] [address] [id number] [address] [place] [address] Apr, [facility] [address] [id number] [address] [place] [address], [place] [address] March, [facility] [address] [id number] [address] [place] [address], [place] [address] March, [facility] [address] [id number] [address] [place] [address], [place] [address] March, [facility] [address] [id number] [address] [place] [address], [place] [address] March, [facility] [address] [id number] [address] [place] [address], [place] [address] March, Sialadenitis 527.2 [facility] [address] [id number] [address] [place] [address], [place] [address] Feb, [facility] [address] [id number] [address] [place] [address], [place] [address] Feb, [facility] [address] [id number] [address] [place] [address], [place] [address] Feb, [facility] [address] [id number] [address] [place] [address], [place] [address] Feb, [facility] [address] [id number] [address] [place] [address], [place] [address] Feb, [facility] [address] [id number] [address] [place] [address], [place] [address] Jan, [facility] [address] [id number] [address] [place] [address] Jan, [facility] [address] [id number] [address] [place] [address], [place] [address] Jan, [facility] [address] [id number] [address] [place] [address], [place] [address] Jan, [facility] [address] [id number] [address] [place] [address], [place] [address] Jan, [facility] [address] [id number] [address] [place] [address] Jan, [facility] [address] [id number] [address] [place] [address], [place] [address] Dec, [facility] [address] [id number] [address] [place] [address], [place] [address] Dec, [facility] [address] [id number] [address] [place] [address], [place] [address] Dec, [facility] [address] [id number] [address] [place] [address], [place] [address] Dec, [facility] [address] [id number] [address] [place] [address], [place] [address] Dec, [facility] [address] [id number] [address] [place] [address], [place] [address] Dec, [facility] [address] [id number] [address] [place] [address], [place] [address] Nov, [facility] [address] [id number] [address] [place] [address], [place] [address] Nov, [facility] [address] [id number] [address] [place] [address], [place] [address] Nov, [facility] [address] [id number] [address] [place] [address], [place] [address] Nov, [facility] [address] [id number] [address] [place] [address], [place] [address] Nov, [facility] [address] [id number] [address] [place] [address], [place] [address] Nov, [facility] [address] [id number] [address] [place] [address], [place] [address] Nov, [facility] [address] [id number] [address] [place] [address], [place] [address] Nov, [facility] [address] [id number] [address] [place] [address], [place] [address] Nov, [facility] [address] [id number] [address] [place] [address], [place] [address] Nov, [facility] [address] [id number] [address] [place] [address], [place] [address] Nov, [facility] [address] [id number] [address] [place] [address], [place] [address] Nov, [facility] [address] [id number] [address] [place] [address], [place] [address] Nov, [facility] [address] [id number] [address] [place] [address], [place] [address] Nov, [facility] [address] [id number] [address] [place] [address], [place] [address] Oct, [facility] [address] [id number] [address] [place] [address], [place] [address] Oct, [facility] [address] [id number] [address] [place] [address], [place] [address] Oct, [facility] [address] [id number] [address] [place] [address], [place] [address] Oct, [facility] [address] [id number] [address] [place] [address], [place] [address] Oct, [facility] [address] [id number] [address] [place] [address], [place] [address] 17 Oct, 2014 [facility] [address] [id number] [address] [place] [address], [place] [address] 17 Oct, 2014 [facility] [address] [id number] [address] [place] [address], [place] [address] Oct, [facility] [address] [id number] [address] [place] [address], [place] [address] Oct, [facility] [address] [id number] [address] [place] [address], [place] [address] Sep, [facility] [address] [id number] [address] [place] [address], [place] [address] Sep, [facility] [address] [id number] [address] [place] [address], [place] [address] Sep, [facility] [address] [id number] [address] [place] [address], [place] [address] Sep, [facility] [address] [id number] [address] [place] [address], [place] [address] Sep, [facility] [address] [id number] [address] [place] [address], [place] [address] Sep, [facility] [address] [id number] [address] [place] [address], [place] [address] Sep, [facility] [address] [id number] [address] [place] [address], [place] [address] Sep, [facility] [address] [id number] [address] [place] [address], [place] [address] Sep, [facility] [address] [id number] [address] [place] [address], [place] [address] Sep, [facility] [address] [id number] [address] [place] [address], [place] [address] Sep, [facility] [address] [id number] [address] [place] [address], [place] [address] Sep, [facility] [address] [id number] [address] [place] [address], [place] [address] Aug, [facility] [address] [id number] [address] [place] [address], [place] [address] Aug, [facility] [address] [id number] [address] [place] [address], [place] [address] Aug, [facility] [address] [id number] [address] [place] [address], [place] [address] Aug, [facility] [address] [id number] [address] [place] [address], [place] [address] Aug, [facility] [address] [id number] [address] [place] [address], [place] [address] 28 Aug, 2014 [facility] [address] [id number] [address] [place] [address], [place] [address] Aug, [facility] [address] [id number] [address] [place] [address], [place] [address] 17 Aug, 2014 [facility] [address] [id number] [address] [place] [address], [place] [address] 30 Jul, 2013 [facility] [address] [id number] [address] [place] [address], [place] [address] 30 Jul, 2013 [facility] [address] [id number] [address] [place] [address], [place] [address] 30 Jul, 2013 [facility] [address] [id number] [address] [place] [address], [place] [address] 30 Jul, 2013 [facility] [address] [id number] [address] [place] [address], [place] [address] 25 Jul, 2013 [facility] [address] [id number] [address] [place] [address], [place] [address] 25 Jul, 2013 [facility] [address] [id number] [address] [place] [address], [place] [address] 15 Jul, 2014 [facility] [address] [id number] [address] [place] [address], [place] [address] 15 Jul, 2014 [facility] [address] [id number] [address] [place] [address], [place] [address] 11 Jul, 2014 [facility] [address] [id number] [address] [place] [address], [place] [address] Jul, [facility] [address] [id number] [address] [place] [address], [place] [address] Jun, [facility] [address] [id number] [address] [place] [address], [place] [address] Jun, [facility] [address] [id number] [address] [place] [address], [place] [address] Jun, [facility] [address] [id number] [facility] [place] [address] Jun, [facility] [address] [id number] [address] [place] [address], [place] [address] Jun, [facility] [address] [id number] [address] [place] [address], [place] [address] Jun, [facility] [address] [id number] [address] [place] [address], [place] [address] Jun, [facility] [address] [id number] [address] [place] [address], [place] [address] Jun, [facility] [address] [id number] [address] [place] [address], [place] [address] Jun, [facility] [address] [id number] [address] [place] [address], [place] [address] Jun, [facility] [address] [id number] [address] [place] [address], [place] [address] Jun, [facility] [address] [id number] [address] [place] [address], [place] [address] Jun, [facility] [address] [id number] [address] [place] [address], [place] [address] Jun, [facility] [address] [id number] [address] [place] [address], [place] [address] Jun, [facility] [address] [id number] [address] [place] [address], [place] [address] Jun, [facility] [address] [id number] [address] [place] [address], [place] [address] Jun, [facility] [address] [id number] [address] [place] [address], [place] [address] Jun, [facility] [address] [id number] [address] [place] [address], [place] [address] Jun, [facility] [address] [id number] [address] [place] [address], [place] [address] Jun, [facility] [address] [id number] [facility] [place] [address] Jun, [facility] [address] [id number] [address] [place] [address], [place] [address] Jun, [facility] [address] [id number] [address] [place] [address], [place] [address] Jun, [facility] [address] [id number] [address] [place] [address], [place] [address] May, [facility] [address] [id number] [address] [place] [address], [place] [address] May, [facility] [address] [id number] [address] [place] [address], [place] [address] May, [facility] [address] [id number] [address] [place] [address], [place] [address] May, [facility] [address] [id number] [address] [place] [address], [place] [address] May, [facility] [address] [id number] [address] [place] [address], [place] [address] May, [facility] [address] [id number] [address] [place] [address], [place] [address] May, [facility] [address] [id number] [address] [place] [address], [place] [address] May, [facility] [address] [id number] [address] [place] [address], [place] [address] May, [facility] [address] [id number] [address] [place] [address], [place] [address] May, [facility] [address] [id number] [address] [place] [address], [place] [address] May, [facility] [address] [id number] [address] [place] [address], [place] [address] May, [facility] [address] [id number] [facility] [place] [address] May, [facility] [address] [id number] [facility] [place] [address] Apr, [facility] [address] [id number] [facility] [place] [address] Apr, [facility] [address] [id number] [facility] [place] [address] Apr, [facility] [address] [id number] [facility] [place] [address] Apr, [facility] [address] [id number] [facility] [place] [address] Apr, [facility] [address] [id number] [address] [place] [address], [place] [address] Apr, [facility] [address] [id number] [address] [place] [address], [place] [address] Apr, [facility] [address] [id number] [address] [place] [address], [place] [address] Apr, [facility] [address] [id number] [address] [place] [address], [place] [address] Apr, [facility] [address] [id number] [address] [place] [address], [place] [address] March, [facility] [address] [id number] [address] [place] [address], [place] [address] March, [facility] [address] [id number] [address] [place] [address], [place] [address] March, [facility] [address] [id number] [address] [place] [address], [place] [address] March, [facility] [address] [id number] [address] [place] [address], [place] [address] March, [facility] [address] [id number] [address] [place] [address], [place] [address] March, [facility] [address] [id number] [address] [place] [address] March, [facility] [address] [id number] [address] [place] [address], [place] [address] March, [facility] [address] [id number] [address] [place] [address], [place] [address] March, [facility] [address] [id number] [address] [place] [address], [place] [address] March, [facility] [address] [id number] [address] [place] [address], [place] [address] March, [facility] [address] [id number] [address] [place] [address], [place] [address] March, [facility] [address] [id number] [address] [place] [address], [place] [address] March, [facility] [address] [id number] [address] [place] [address], [place] [address] March, [facility] [address] [id number] [address] [place] [address], [place] [address] March, [facility] [address] [id number] [address] [place] [address], [place] [address] March, [facility] [address] [id number] [address] [place] [address], [place] [address] March, [facility] [address] [id number] [address] [place] [address], [place] [address] March, [facility] [address] [id number] [address] [place] [address], [place] [address] March, [facility] [address] [id number] [address] [place] [address], [place] [address] March, [facility] [address] [id number] [address] [place] [address], [place] [address] Feb, [facility] [address] [id number] [address] [place] [address] Feb, [facility] [address] [id number] [address] [place] [address], [place] [address] Feb, [facility] [address] [id number] [address] [place] [address] Feb, [facility] [address] [id number] [address] [place] [address], [place] [address] Feb, [facility] [address] [id number] [address] [place] [address], [place] [address] Feb, [facility] [address] [id number] [address] [place] [address], [place] [address] Feb, [facility] [address] [id number] [address] [place] [address], [place] [address] Feb, [facility] [address] [id number] [address] [place] [address], [place] [address] Jan, [facility] [address] [id number] [address] [place] [address], [place] [address] Jan, [facility] [address] [id number] [address] [place] [address], [place] [address] Jan, [facility] [address] [id number] [address] [place] [address], [place] [address] Jan, [facility] [address] [id number] [address] [place] [address], [place] [address] Jan, [facility] [address] [id number] [address] [place] [address], [place] [address] Jan, [facility] [address] [id number] [address] [place] [address], [place] [address] Jan, [facility] [address] [id number] [address] [place] [address], [place] [address] Jan, [facility] [address] [id number] [address] [place] [address], [place] [address] Jan, [facility] [address] [id number] [address] [place] [address] Jan, [facility] [address] [id number] [address] [place] [address], [place] [address] Dec, [facility] [address] [id number] [address] [place] [address], [place] [address] Dec, [facility] [address] [id number] [address] [place] [address], [place] [address] Dec, [facility] [address] [id number] [address] [place] [address], [place] [address] Dec, [facility] [address] [id number] [address] [place] [address] [address] Dec, [facility] [address] [id number] [address] [place] [address], [place] [address] Dec, [facility] [address] [id number] [address] [place] [address], [place] [address] Dec, [facility] [address] [id number] [address] [place] [address], [place] [address] Dec, [facility] [address] [id number] [address] [place] [address], [place] [address] Nov, [facility] [address] [id number] [address] [place] [address], [place] [address] Nov, [facility] [address] [id number] [address] [place] [address], [place] [address] Nov, [facility] [address] [id number] [address] [place] [address], [place] [address] Nov, [facility] [address] [id number] [address] [place] [address], [place] [address] Nov, [facility] [address] [id number] [address] [place] [address], [place] [address] Nov, [facility] [address] [id number] [address] [place] [address], [place] [address] Nov, [facility] [address] [id number] [address] [place] [address], [place] [address] Nov, [facility] [address] [id number] [address] [place] [address], [place] [address] Nov, [facility] [address] [id number] [address] [place] [address], [place] [address] Nov, [facility] [address] [id number] [address] [place] [address], [place] [address] Nov, [facility] [address] [id number] [address] [place] [address], [place] [address] Nov, [facility] [address] [id number] [address] [place] [address], [place] [address] Nov, [facility] [address] [id number] [address] [place] [address], [place] [address] Oct, [facility] [address] [id number] [address] [place] [address], [place] [address] 30 Oct, 2013 [facility] [address] [id number] [address] [place] [address], [place] [address] Oct, [facility] [address] [id number] [address] [place] [address], [place] [address] Oct, [facility] [address] [id number] [address] [place] [address], [place] [address] Oct, [facility] [address] [id number] [address] [place] [address], [place] [address] Oct, [facility] [address] [id number] [address] [place] [address], [place] [address] 18 Oct, 2013 [facility] [address] [id number] [address] [place] [address], [place] [address] 18 Oct, 2013 [facility] [address] [id number] [address] [place] [address], [place] [address] Oct, [facility] [address] [id number] [address] [place] [address], [place] [address] Oct, [facility] [address] [id number] [address] [place] [address], [place] [address] Oct, [facility] [address] [id number] [address] [place] [address], [place] [address] Oct, [facility] [address] [id number] [address] [place] [address], [place] [address] Oct, [facility] [address] [id number] [address] [place] [address], [place] [address] Oct, [facility] [address] [id number] [address] [place] [address], [place] [address] Sep, [facility] [address] [id number] [address] [place] [address], [place] [address] Sep, [facility] [address] [id number] [address] [place] [address], [place] [address] Sep, [facility] [address] [id number] [address] [place] [address], [place] [address] Sep, [facility] [address] [id number] [address] [place] [address], [place] [address] Sep, [facility] [address] [id number] [address] [place] [address], [place] [address] Sep, [facility] [address] [id number] [address] [place] [address], [place] [address] Sep, [facility] [address] [id number] [address] [place] [address], [place] [address] Sep, [facility] [address] [id number] [address] [place] [address], [place] [address] Sep, [facility] [address] [id number] [address] [place] [address], [place] [address] Sep, [facility] [address] [id number] [address] [place] [address], [place] [address] Aug, [facility] [address] [id number] [address] [place] [address], [place] [address] Aug, [facility] [address] [id number] [address] [place] [address] Aug, [facility] [address] [id number] [address] [place] [address] Aug, [facility] [address] [id number] [address] [place] [address] Aug, [facility] [address] [id number] [address] [place] [address], [place] [address] Aug, [facility] [address] [id number] [address] [place] [address] Aug, [facility] [address] [id number] [address] [place] [address] Aug, [facility] [address] [id number] [address] [place] [address] Aug, [facility] [address] [id number] [address] [place] [address] Aug, [facility] [address] [id number] [address] [place] [address] 18 Aug, 2013 [facility] [address] [id number] [address] [place] [address] 18 Aug, 2013 [facility] [address] [id number] [address] [place] [address] 18 Aug, 2013 [facility] [address] [id number] [address] [place] [address], [place] [address] 18 Aug, 2013 [facility] [address] [id number] [address] [place] [address] 17 Aug, 2013 [facility] [address] [id number] [address] [place] [address] 14 Aug, 2013 [facility] [address] [id number] [address] [place] [address], [place] [address] 14 Aug, 2013 [facility] [address] [id number] [address] [place] [address], [place] [address] 01 Aug, 2013 [facility] [address] [id number] [address] [place] [address], [place] [address] 20 Jul, 2013 [facility] [address] [id number] [address] [place] [address], [place] [address] 19 Jul, 2013 [facility] [address] [id number] [address] [place] [address], [place] [address] 18 Jul, 2013 [facility] [address] [id number] [address] [place] [address], [place] [address] 11 Jul, 2013 [facility] [address] [id number] [address] [place] [address], [place] [address] Jul, [facility] [address] [id number] [address] [place] [address], [place] [address] Jun, [facility] [address] [id number] [address] [place] [address], [place] [address] Jun, [facility] [address] [id number] [address] [place] [address], [place] [address] Jun, [facility] [address] [id number] [address] [place] [address], [place] [address] 15 Jun, 2013 [facility] [address] [id number] [address] [place] [address], [place] [address] 14 Jun, 2013 [facility] [address] [id number] [address] [place] [address], [place] [address] Jun, [facility] [address] [id number] [address] [place] [address], [place] [address] Jun, [facility] [address] [id number] [address] [place] [address], [place] [address] 08 Jun, 2013 [facility] [address] [id number] [address] [place] [address], [place] [address] Jun, [facility] [address] [id number] [address] [place] [address], [place] [address] Jun, [facility] [address] [id number] [address] [place] [address], [place] [address] May, [facility] [address] [id number] [address] [place] [address], [place] [address] May, [facility] [address] [id number] [address] [place] [address], [place] [address] May, [facility] [address] [id number] [address] [place] [address], [place] [address] May, [facility] [address] [id number] [address] [place] [address], [place] [address] May, [facility] [address] [id number] [address] [place] [address], [place] [address] May, [facility] [address] [id number] [address] [place] [address], [place] [address] May, [facility] [address] [id number] [address] [place] [address], [place] [address] May, [facility] [address] [id number] [address] [place] [address], [place] [address] May, [facility] [address] [id number] [address] [place] [address], [place] [address] Apr, [facility] [address] [id number] [address] [place] [address], [place] [address] Apr, [facility] [address] [id number] [address] [place] [address], [place] [address] Apr, [facility] [address] [id number] [address] [place] [address], [place] [address] Apr, [facility] [address] [id number] [address] [place] [address], [place] [address] Apr, [facility] [address] [id number] [address] [place] [address], [place] [address] 04 Apr, 2013 [facility] [address] [id number] [address] [place] [address], [place] [address] Apr, [facility] [address] [id number] [address] [place] [address], [place] [address] March, [facility] [address] [id number] [address] [place] [address], [place] [address] Feb, [facility] [address] [id number] [address] [place] [address], [place] [address] Feb, [facility] [address] [id number] [address] [place] [address], [place] [address] Feb, [facility] [address] [id number] [address] [place] [address], [place] [address] Jan, [facility] [address] [id number] [address] [place] [address], [place] [address] Jan, [facility] [address] [id number] [address] [place] [address], [place] [address] Jan, [facility] [address] [id number] [address] [place] [address], [place] [address] Jan, [facility] [address] [id number] [address] [place] [address], [place] [address] Jan, [facility] [address] [id number] [address] [place] [address], [place] [address] Jan, [facility] [address] [id number] [address] [place] [address], [place] [address] Jan, [facility] [address] [id number] [address] [place] [address], [place] [address] Jan, [facility] [address] [id number] [address] [place] [address], [place] [address] Dec, [facility] [address] [id number] [address] [place] [address], [place] [address] Dec, [facility] [address] [id number] [address] [place] [address], [place] [address] 13 Dec, 2012 [facility] [address] [id number] [address] [place] [address], [place] [address] 11 Dec, 2012 [facility] [address] [id number] [address] [place] [address], [place] [address] 07 Dec, 2012 [facility] [address] [id number] [address] [place] [address], [place] [address] 06 Dec, 2012 [facility] [address] [id number] [address] [place] [address], [place] [address] 05 Dec, 2012 [facility] [address] [id number] [address] [place] [address], [place] [address] Nov, [facility] [address] [id number] [address] [place] [address], [place] [address] Nov, [facility] [address] [id number] [address] [place] [address], [place] [address] Nov, [facility] [address] [id number] [address] [place] [address], [place] [address] Nov, [facility] [address] [id number] [address] [place] [address], [place] [address] Nov, [facility] [address] [id number] [address] [place] [address], [place] [address] Nov, [facility] [address] [id number] [address] [place] [address], [place] [address] Nov, [facility] [address] [id number] [address] [place] [address], [place] [address] Oct, [facility] [address] [id number] [address] [place] [address], [place] [address] Oct, [facility] [address] [id number] [address] [place] [address], [place] [address] Oct, [facility] [address] [id number] [address] [place] [address], [place] [address] Oct, [facility] [address] [id number] [address] [place] [address], [place] [address] Oct, [facility] [address] [id number] [address] [place] [address], [place] [address] Oct, [facility] [address] [id number] [address] [place] [address], [place] [address] Oct, [facility] [address] [id number] [address] [place] [address], [place] [address] Oct, [facility] [address] [id number] [address] [place] [address], [place] [address] Oct, [facility] [address] [id number] [address] [place] [address], [place] [address] Oct, [facility] [address] [id number] [address] [place] [address], [place] [address] Oct, [facility] [address] [id number] [address] [place] [address], [place] [address] Oct, [facility] [address] [id number] [address] [place] [address], [place] [address] Sep, [facility] [address] [id number] [address] [place] [address], [place] [address] Sep, [facility] [address] [id number] [address] [place] [address], [place] [address] Sep, [facility] [address] [id number] [address] [place] [address], [place] [address] Sep, [facility] [address] [id number] [address] [place] [address], [place] [address] Sep, [facility] [address] [id number] [address] [place] [address], [place] [address] Sep, [facility] [address] [id number] [address] [place] [address], [place] [address] Sep, [facility] [address] [id number] [address] [place] [address], [place] [address] Sep, [facility] [address] [id number] [address] [place] [address], [place] [address] Sep, [facility] [address] [id number] [address] [place] [address], [place] [address] Sep, [facility] [address] [id number] [address] [place] [address], [place] [address] Sep, [facility] [address] [id number] [address] [place] [address], [place] [address] Aug, [facility] [address] [id number] [address] [place] [address], [place] [address] Aug, [facility] [address] [id number] [address] [place] [address], [place] [address] Aug, [facility] [address] [id number] [address] [place] [address], [place] [address] Aug, [facility] [address] [id number] [address] [place] [address], [place] [address] Aug, [facility] [address] [id number] [address] [place] [address], [place] [address] Aug, [facility] [address] [id number] [address] [place] [address], [place] [address] Aug, [facility] [address] [id number] [address] [place] [address], [place] [address] Aug, [facility] [address] [id number] [address] [place] [address], [place] [address] Aug, [facility] [address] [id number] [address] [place] [address], [place] [address] Aug, [facility] [address] [id number] [address] [place] [address], [place] [address] 22 Jul, 2012 [facility] [address] [id number] [address] [place] [address], [place] [address] Jul, [facility] [address] [id number] [facility] [place] [address] Jul, [facility] [address] [id number] [address] [place] [address], [place] [address] Jul, [facility] [address] [id number] [address] [place] [address], [place] [address] Jun, [facility] [address] [id number] [address] [place] [address], [place] [address] Jun, [facility] [address] [id number] [address] [place] [address], [place] [address] Jun, [facility] [address] [id number] [address] [place] [address], [place] [address] Jun, [facility] [address] [id number] [address] [place] [address], [place] [address] Jun, [facility] [address] [id number] [address] [place] [address], [place] [address] Jun, [facility] [address] [id number] [address] [place] [address], [place] [address] Jun, [facility] [address] [id number] [address] [place] [address], [place] [address] May, [facility] [address] [id number] [address] [place] [address], [place] [address] May, [facility] [address] [id number] [address] [place] [address], [place] [address] May, [facility] [address] [id number] [address] [place] [address], [place] [address] May, [facility] [address] [id number] [address] [place] [address], [place] [address] May, [facility] [address] [id number] [address] [place] [address], [place] [address] Apr, [facility] [address] [id number] [address] [place] [address], [place] [address] 18 Apr, 2012 [facility] [address] [id number] [address] [place] [address], [place] [address] Apr, [facility] [address] [id number] [address] [place] [address], [place] [address] Apr, [facility] [address] [id number] [address] [place] [address], [place] [address] Apr, [facility] [address] [id number] [address] [place] [address], [place] [address] March, [facility] [address] [id number] [address] [place] [address], [place] [address] March, [facility] [address] [id number] [address] [place] [address], [place] [address] March, [facility] [address] [id number] [address] [place] [address], [place] [address] March, [facility] [address] [id number] [address] [place] [address], [place] [address] March, [facility] [address] [id number] [address] [place] [address], [place] [address] March, [facility] [address] [id number] [address] [place] [address], [place] [address] March, [facility] [address] [id number] [address] [place] [address], [place] [address] March, [facility] [address] [id number] [address] [place] [address], [place] [address] March, [facility] [address] [id number] [address] [place] [address], [place] [address] March, [facility] [address] [id number] [address] [place] [address], [place] [address] Feb, [facility] [address] [id number] [address] [place] [address], [place] [address] Feb, [facility] [address] [id number] [address] [place] [address], [place] [address] Feb, [facility] [address] [id number] [address] [place] [address], [place] [address] Feb, [facility] [address] [id number] [address] [place] [address], [place] [address] Feb, [facility] [address] [id number] [address] [place] [address], [place] [address] Feb, [facility] [address] [id number] [address] [place] [address], [place] [address] Feb, [facility] [address] [id number] [address] [place] [address], [place] [address] Feb, [facility] [address] [id number] [address] [place] [address], [place] [address] Feb, [facility] [address] [id number] [address] [place] [address], [place] [address] Jan, [facility] [address] [id number] [address] [place] [address], [place] [address] Jan, [facility] [address] [id number] [address] [place] [address], [place] [address] 05 Jan, 2012 [facility] [address] [id number] [address] [place] [address], [place] [address] Jan, [facility] [address] [id number] [address] [place] [address], [place] [address] Dec, [facility] [address] [id number] [address] [place] [address], [place] [address] Dec, [facility] [address] [id number] [address] [place] [address], [place] [address] Nov, [facility] [address] [id number] [address] [place] [address], [place] [address] Nov, [facility] [address] [id number] [address] [place] [address] Nov, [facility] [address] [id number] [address] [place] [address] Nov, [facility] [address] [id number] [address] [place] [address] Nov, [facility] [address] [id number] [address] [place] [address] Oct, [facility] [facility] [address] [id number] [address] [place] [phone] Oct, [facility] [address] [id number] [address] [place] [id number] Oct, [facility] [address] [id number] [address] [place] [id number] Oct, [facility] [address] [id number] [address] [place] [id number] Oct, [facility] [address] [id number] [address] [place] [id number] Oct, [facility] [address] [id number] [address] [place] [phone] Oct, [facility] [address] [id number] [address] [place] [phone] Oct, [facility] [address] [id number] [address] [place] [id number] Sep, IMMUNIZATIONS No Known Immunizations SOCIAL HISTORY [...] fever, discharged 11/27/2017 11/26/2017 Hospitalization History ED [place]- Went Unrepsonsive, Hit head 2017 Hospitalization History ED [place]- Back Pain 8
--- OUTSIDE RECORDS SUMMARY | 2020-06-18 15:38 | XMS REPORT ---
Author Author Sanjuanita Abdul Doctor Organization [facility] Address Unknown Phone Unavailable Care Team Providers Care [employer] Maker Name Role Phone Migration, Doctor Unavailable Unavailable PROBLEMS Type Condition ICD9-CM Code [id number] Code Onset Dates Condition S tatus SNOMED Code Problem Hypertension I10 Active 5764120 3 Problem Hyperlipidemia E78.5 Active 57175 004 Problem Coronary artery disease I25.10 Active 00362053 Problem Low back pain M54.5 Active 690940 009 Problem Other chronic pain G89.29 Active 8 8239662 Problem Ventral hernia without obstruction or gangrene K43 .9 Active 447554906 Problem Type 2 diabetes mellitus wit hout complication, without long-term current use of insulin E11.9 Active 307253863 Problem Anxiety F41.9 Active 80462344 Problem Peripheral vascular disease I73.9 Ac tive 247104979 Problem Insomnia G47.00 Active 721212034 Problem Microcytic anemia D50.9 Active 23 3655271 Problem Pharyngeal dysphagia R13.13 Active 65062203715770 Problem Other iron deficiency anemia D50.8 A ctive 75405098 Problem Reactive depression F32.9 Active 69882371 Problem Paroxysmal atrial fibrillation I48.0 Active 125297939 Problem Postmenopausal atrophic vaginitis N95.2 Active 23029975 Problem Encounter for suprapubic catheter care Z43.5 Active 226048686 Problem Neurogenic bladder N31.9 Active 3 00716500 ALLERGIES No Information ENCOUNTERS Encounter Location Date Diagnosis [place] [address] [facility] [id number] [address] [place] [phone] 17 Apr, 2020 Anxiety F41.9 and Strain of right shoulder, subsequent encounter S46.911D [place] [address] [id number] [address] [place] [phone] 04 Apr, 2020 [facility] [address] [facility] [id number] [address] [place] [address] March, [facility] [address] [id number] [address] [place] [address] March, Anxiety F41.9 and Strain of right shoulder, subsequent encounter S46.911D [facility] [address] [id number] [address] [place], [place] [id number] Feb, Anxiety F41.9 and Strain of right shoulder, subsequent encounter S46.911D [facility] [address] [id number] [address] [place] [address] Jan, Anxiety F41.9 and Strain of right shoulder, subsequent encounter S46.911D [facility] [address] [id number] [address] [place] [phone] Jan, [facility] [address] [place] [id number] Jan, Neurogenic bladder N31.9 [facility] [address] [id number] [address] [place] [id number] Dec, [facility] [address] [id number] [address] [place] [id number] Dec, [facility] [address] [id number] [address] [place] [address] Dec, Anxiety F41.9 and Strain of right shoulder, subsequent encounter S46.911D [facility] [address] [id number] [address] [place] [id number] 10 Dec, 2019 Other iron deficiency anemia D50.8 [facility] [address] [id number] [address] [place] [phone] Dec, Via [facility] [address] [place] [id number] Dec, Encounter for suprapubic catheter care Z 43.5 and Microcytic anemia D50.9 [facility] [address] [id number] [address] [place] [phone] Dec, [facility] [address] [id number] [address] [place] [phone] Nov, Anxiety F41.9 and Strain of right shoulder, subsequent encounter S46.911D [facility] [address] [id number] [address] [place] [phone] Nov, Hypertension I10 [facility] [address] [place] [id number] Nov, Pneumonia of both lungs due to infectiou s organism, unspecified part of lung J18.9 and Suprapubic catheter Z93.59 [place] [address] [id number] [address] [place] [phone] Nov, Hypertension I10 and Reactiv e depression F32.9 [place] [address] [id number] [address] [place] [id number] Oct, Strain of right shoulder, scherer bsequent encounter S46.911D and Anxiety F41.9 [place] [address] [id number] [address] [place] [address] Oct, Via [facility] [address] [place] [id number] Oct, Suprapubic catheter Z93.59 and Candidias is, intertriginous B37.2 [facility] [address] [id number] [address] [place] [id number] Oct, Suprapubic catheter Z93.59 [facility] [address] [id number] [address] [place] [address] Oct, Anxiety F41.9 and Strain of right shoulder, subsequent encounter S46.911D [facility] [address] [id number] [address] [place] [id number] Sep, [place] [address] [id number] [address] [place] [id number] Sep, [place] [address] [id number] [address] [place] [phone] Sep, [facility] [address] [place] [id number] Sep, Suprapubic catheter Z93.59 [facility] [address] [id number] [address] [place] [id number] Sep, Anxiety F41.9 and Strain of right shoulder, subsequent encounter S46.911D [facility] [address] [id number] [address] [place] [phone] Aug, [facility] [address] [id number] [address] [place] [address] Aug, [facility] [address] [id number] [address] [place] [address] Aug, Anxiety F41.9 and Strain of right shoulder, subsequent encounter S46.911D [facility] [address] [place] [facility] [place] [id number] Aug, Suprapubic catheter Z93.59 [facility] [address] [id number] [address] [place] [address] Jul, Strain of right shoulder, scherer bsequent encounter S46.911D and Anxiety F41.9 [facility] [address] [id number] [address] [place] [address] Jul, Anxiety F41.9 [facility] [address] [id number] [address] [place] [address] Jun, [facility] [address] [id number] [address] [place] [phone] Jun, [facility] [address] [id number] [address] [place] [phone] Jun, [facility] [address] [id number] [address] [place] [address] Jun, Strain of right shoulder, scherer bsequent encounter S46.911D [facility] [address] [id number] [address] [place] [address] Jun, Strain of right shoulder, scherer bsequent encounter S46.911D [place] [address] [id number] [address] [place] [address] Jun, Anxiety F41.9 [facility] [address] [place] [id number] Jun, Neurogenic bladder N31.9 and Anxiety F41 .9 [facility] [address] [place] [id number] May, Anxiety F41.9 [place] [address] [id number] [address] [place] [address] May, Dysuria R30.0 [place] [address] [id number] [address] [place] [phone] May, Strain of right shoulder, scherer bsequent encounter S46.911D and Anxiety F41.9 [place] [address] [id number] [address] [place] [phone] Apr, Via [facility] [address] [place] [id number] Apr, Strain of right shoulder, subsequent enc ounter S46.911D [place] [address] [id number] [address] [place] [id number] 14 Apr, 2019 Strain of right shoulder, scherer bsequent encounter S46.911D and Anxiety F41.9 [facility] [address] [place] [id number] 13 Apr, 2019 Type 2 diabetes mellitus without complic ation, without long-term current use of insulin E11.9 and Neurogenic bladder N31.9 [facility] [address] [place] [id number] Apr, Strain of right shoulder, subsequent enc ounter S46.911D ; History of GI bleed Z87.19 ; Neurogenic bladder N31.9 and Reactive depression F32.9 [place] [address] [id number] [address] [place] [address] 10 Apr, 2019 Acute pain of left shoulder M25.512 [place] [address] [id number] [address] [place] [phone] Apr, [facility] [address] [id number] [address] [place] [phone] Apr, Anxiety F41.9 and 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 [facility] [address] [place] [id number] March, Gastrointestinal hemorrhage associated w ith acute gastritis K29.01 [facility] [address] [id number] [address] [place] [address] March, [facility] [address] [place] [id number] March, Bronchitis J40 [facility] [address] [id number] [address] [place] [id number] March, Cough R05 [facility] [address] [id number] [address] [place] [phone] March, Other chronic pain G89.29 [facility] [address] [id number] [address] [place] [address] March, Anxiety F41.9 [facility] [address] [id number] [address] [place] [phone] March, [facility] [address] [id number] [address] [place] [address] Feb, Other chronic pain G89.29 [facility] [address] [id number] [address] [place] [address] Feb, Anxiety F41.9 [facility] [address] [id number] [address] [place] [address] Feb, Other chronic pain G89.29 [facility] [address] [place] [id number] Feb, Neurogenic bladder N31.9 and Suprapubic catheter Z93.59 [facility] [address] [id number] [address] [place] [address] Jan, Anxiety F41.9 [facility] [address] [id number] [address] [place] [phone] Dec, Anxiety F41.9 [facility] [address] [id number] [address] [place] [phone] Dec, Other chronic pain G89.29 an d Anxiety F41.9 [facility] [address] [id number] [address] [place] [id number] Dec, [facility] [address] [place] [id number] Dec, Neurogenic bladder N31.9 and Suprapubic catheter Z93.59 [facility] [address] [id number] [address] [place] [id number] Nov, Other chronic pain G89.29 an d Anxiety F41.9 [facility] [address] [id number] [address] [place] [phone] Nov, [facility] [address] [place] [id number] Nov, Suprapubic catheter Z93.59 [facility] [address] [id number] [address] [place] [id number] Oct, Other chronic pain G89.29 an d Anxiety F41.9 [facility] [address] [id number] [address] [place] [id number] Oct, [facility] [address] [id number] [address] [place] [address] Oct, Suprapubic catheter Z93.59 [facility] [address] [id number] [address] [place] [phone] Oct, [facility] [address] [place] [id number] Oct, [facility] [address] [id number] [address] [place] [phone] Oct, Anxiety F41.9 [facility] [address] [id number] [address] [place] [phone] Oct, Anxiety F41.9 [facility] [address] [place] [id number] Oct, Other chronic pain G89.29 [facility] [address] [id number] [address] [place] [phone] Sep, Other chronic pain G89.29 [facility] [employer] [facility] [address] [place] [id number] Sep, Suprapubic catheter Z93.59 and Cervicalg ia M54.2 [facility] [address] [id number] [address] [place] [phone] Sep, [facility] [address] [id number] [address] [place] [phone] Sep, [facility] [address] [id number] [address] [place] [phone] Sep, Via [employer] [facility] [address] [place] [id number] Aug, Cystitis N30.90 [facility] [address] [id number] [address] [place] [phone] Aug, [facility] [address] [id number] [address] [place] [id number] Aug, Other chronic pain G89.29 [facility] [address] [id number] [address] [place] [phone] Aug, [facility] [employer] [facility] [address] [place] [id number] Aug, Encounter for suprapubic catheter care Z 43.5 [facility] [address] [id number] [address] [place] [phone] Jul, [facility] [employer] [facility] [address] [place] [id number] Jul, [facility] [address] [id number] [address] [place] [phone] Jul, Other chronic pain G89.29 [facility] [address] [id number] [address] [place] [phone] Jul, [facility] [address] [id number] [address] [place] [address] Jul, [facility] [address] [place] [id number] Jun, Postmenopausal atrophic vaginitis N95.2 [facility] [address] [id number] [address] [place] [phone] Jun, Other chronic pain G89.29 [facility] [address] [id number] [address] [place] [address] Jun, [facility] [address] [place] [id number] May, Anxiety F41.9 ; Type 2 diabetes mellitus without complication, without long-term current use of insulin E11.9 ; Hypertension I10 ; Low back pain M54.5 ; Paroxysmal atrial fibrillation I48.0 and 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 [facility] [address] [id number] [address] [place] [address] May, Other chronic pain G89.29 [facility] [address] [place] [id number] May, Low back pain M54.5 [facility] [address] [id number] [address] [place] [phone] May, [facility] [address] [id number] [address] [place] [address] Apr, Other chronic pain G89.29 [facility] [address] [id number] [address] [place] [address] Apr, [facility] [address] [id number] [address] [place] [address] Apr, [facility] [address] [place] [id number] Apr, Closed compression fracture of L3 lumbar vertebra with routine healing, subsequent encounter S32.030D [facility] [address] [place] [id number] 14 Apr, 2018 Low back pain M54.5 [facility] [employer] [facility] [address] [place] [id number] 12 Apr, 2018 Coccydynia M53.3 [facility] [address] [id number] [address] [place] [address] March, [facility] [address] [id number] [address] [place] [address] March, Other chronic pain G89.29 [facility] [address] [id number] [address] [place] [phone] March, [facility] [address] [id number] [address] [place] [phone] March, [facility] [address] [id number] [address] [place] [phone] Feb, [facility] [address] [id number] [address] [place] [address] Feb, Other chronic pain G89.29 [facility] [employer] [facility] [address] [place] [id number] Feb, Other chronic pain G89.29 and Anxiety F4 1.9 [facility] [address] [id number] [address] [place] [phone] Feb, [facility] [address] [id number] [address] [place] [address] Jan, [facility] [address] [id number] [address] [place] [phone] Jan, [facility] [address] [id number] [address] [place] [address] Jan, [facility] [address] [id number] [address] [place] [id number] Jan, [facility] [address] [facility] [id number] [address] [place] [id number] Dec, [facility] [address] [place] [id number] Dec, Peripheral vascular disease I73.9 ; 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 ; Other chronic pain G89.29 ; Anxiety F41.9 ; Reactive depression F32.9 ; Insomnia G47.00 and Type 2 diabetes mellitus without complication, without long-term current use of insulin E11.[address] [id number] [address] Nov, [facility] [address] [id number] [place] [id number] Nov, Anxiety F41.9 [facility] [address] [facility] [id number] [address] [place] [phone] Nov, [facility] [address] [id number] [place] [id number] Nov, Anxiety F41.9 [facility] [address] [place] [id number] Nov, Status post surgery Z98.890 ; Confused R 41.0 ; Anxiety F41.9 and Other chronic pain G89.29 [facility] [address] [id number] [place] [id number] Nov, Other chronic pain G89.29 [facility] [address] [facility] [id number] [address] [place] [phone] Oct, [facility] [address] [id number] [place] [id number] Oct, Other chronic pain G89.29 [facility] [address] [facility] [id number] [address] [place] [id number] Oct, Anxiety F41.9 [facility] [address] [id number] [place] [id number] Sep, Other chronic pain G89.29 [facility] [address] [id number] [place] [id number] Sep, [facility] [address] [place] [id number] Aug, Dysuria R30.0 and Anxiety F41.9 [facility] [address] [id number] [address] [place] [phone] Aug, [facility] [address] [id number] [place] [id number] Aug, Other chronic pain G89.29 [facility] [address] [id number] [address] [place] [address] Jul, Other chronic pain G89.29 [facility] [address] [id number] [place] [id number] Jun, [facility] [address] [id number] [place] [id number] Jun, Other chronic pain G89.29 [facility] [address] [id number] [address] [place] [address] Jun, [facility] [address] [id number] [address] [place] [address] May, Other chronic pain G89.29 [facility] [address] [id number] [address] [place] [address] Apr, Other chronic pain G89.29 [facility] [address] [place] [id number] Apr, Reactive depression F32.9 and Pharyngeal dysphagia R13.13 [facility] [address] [id number] [address] [place] [phone] Apr, Urinary tract infection with out hematuria, site unspecified N39.0 [facility] [address] [id number] [address] [place] [phone] March, Other chronic pain G89.29 [facility] [address] [id number] [address] [place] [address] Feb, Other chronic pain G89.29 [facility] [address] [id number] [address] [place] [phone] Feb, [facility] [address] [id number] [place] [facility] [place] [id number] Feb, [facility] [employer] [facility] [employer] [facility] [address] [place] [id number] Feb, Dysuria R30.0 and Ventral hernia without obstruction or gangrene K43.9 [facility] [address] [id number] [address] [place] [address] Jan, Other chronic pain G89.29 [facility] [address] [id number] [place] [id number] Dec, Other chronic pain G89.29 [facility] [address] [facility] [id number] [address] [place] [address] Nov, Other chronic pain G89.29 [facility] [address] [place] [id number] Nov, Lymphadenitis I88.9 [facility] [address] [facility] [id number] [address] [place] [phone] Nov, Other chronic pain G89.29 [facility] [address] [facility] [id number] [address] [place] [phone] Nov, [facility] [address] [id number] [place] [id number] Nov, Other chronic pain G89.29 [facility] [employer] [address] [place] [id number] Oct, Low back pain M54.5 ; Hypertension I10 a nd Type 2 diabetes mellitus without complication, without long-term current use of insulin E11.9 [facility] [address] [facility] [id number] [address] [place] [phone] Oct, [facility] [address] [id number] [address] [place] [phone] Oct, [facility] [address] [id number] [address] [place] [phone] Oct, [facility] [address] [id number] [address] [place] [phone] Oct, [facility] [address] [id number] [address] [place] [phone] Sep, [facility] [address] [id number] [address] [place] [phone] Sep, [facility] [address] [id number] [address] [place] [id number] Aug, Other chronic pain G89.29 [facility] [address] [id number] [address] [place] [phone] Jul, [facility] [address] [id number] [address] [place] [id number] Jul, [facility] [address] [id number] [address] [place] [id number] Jul, [facility] [address] [id number] [address] [place] [phone] Jun, [facility] [address] [id number] [address] [place] [phone] Jun, Via [facility] [address] [place] [id number] Jun, Low back pain M54.5 ; Other chronic pain G89.29 and Coronary artery disease I25.10 [facility] [address] [id number] [address] [place] [phone] Jun, [facility] [address] [id number] [address] [place] [id number] May, [facility] [address] [id number] [address] [place] [address] May, [facility] [address] [id number] [address] [place] [address] 13 May, 2016 Other chronic pain G89.29 [facility] [address] [id number] [address] [place] [id number] 13 May, 2016 [facility] [address] [id number] [address] [place] [id number] 28 Apr, 2016 [facility] [address] [id number] [address] [place] [id number] 17 Apr, 2016 Acute cystitis without hemat uria N30.00 [facility] [address] [id number] [address] [place] [id number] 16 Apr, 2016 Acute cystitis without hemat uria N30.00 ; Coronary artery disease I25.10 ; Low back pain M54.5 and Other chronic pain G89.29 [facility] [address] [id number] [address] [place] [id number] 13 Apr, 2016 Other chronic pain G89.29 [facility] [address] [id number] [address] [place] [address] March, Other chronic pain G89.29 [facility] [address] [id number] [address] [place] [id number] 18 Feb, 2016 [facility] [address] [id number] [address] [place] [id number] 15 Feb, 2016 Arthritis M19.90 [facility] [address] [id number] [address] [place] [phone] Feb, [facility] [address] [id number] [address] [place] [id number] 30 Jan, 2016 [facility] [address] [id number] [address] [place] [id number] Jan, [facility] [address] [id number] [address] [place] [id number] Jan, Other chronic pain G89.29 [facility] [address] [id number] [address] [place] [id number] Jan, Hypertension I10 ; Coronary artery disease I25.10 and Insomnia G47.00 [facility] [address] [id number] [address] [place] [phone] Jan, [facility] [address] [id number] [address] [place] [id number] Dec, Right hip pain M25.551 [facility] [address] [id number] [address] [place] [phone] Dec, [facility] [address] [id number] [address] [place] [id number] Dec, [facility] [address] [id number] [address] [place] [id number] Dec, [facility] [address] [id number] [address] [place] [phone] Dec, Other chronic pain G89.29 [facility] [address] [id number] [address] [place] [id number] Dec, [facility] [address] [id number] [address] [place] [phone] Nov, [facility] [address] [id number] [address] [place] [address] Nov, Other chronic pain G89.29 [facility] [address] [id number] [address] [place] [id number] Nov, Right hip pain M25.551 and C oronary artery disease I25.10 [facility] [address] [id number] [address] [place] [id number] Nov, Other chronic pain G89.29 [facility] [address] [id number] [address] [place] [id number] Oct, [facility] [address] [facility] [id number] [address] [place] [phone] Oct, [facility] [address] [id number] [address] [place] [phone] Sep, [facility] [address] [id number] [address] [place] [phone] Sep, [facility] [address] [id number] [address] [place] [id number] Aug, [facility] [address] [id number] [address] [place] [phone] Aug, Hypertension I10 ; Coronary artery disease I25.10 and Arthritis M19.90 [facility] [address] [id number] [address] [place] [id number] Jun, [facility] [address] [facility] [id number] [address] [place] [id number] Jun, Essential hypertension, jayson gn 401.1 ; Other chronic pain 338.29 and Chronic airway obstruction, not elsewhere classified 496 [facility] [address] [id number] [address] [place] [id number] Jun, [facility] [address] [id number] [address] [place] [id number] Jun, [facility] [address] [facility] [id number] [address] [place] [phone] Jun, [facility] [address] [id number] [address] [place] [id number] May, [facility] [address] [id number] [address] [place] [id number] May, [facility] [address] [id number] [address] [place] [id number] Apr, [facility] [address] [id number] [address] [place] [phone] Apr, [facility] [address] [id number] [address] [place] [id number] Apr, [facility] [address] [id number] [address] [place] [address], [place] [address] March, [facility] [address] [id number] [address] [place] [address], [place] [address] March, [facility] [address] [id number] [address] [place] [address], [place] [address] March, [facility] [address] [id number] [address] [place] [address], [place] [address] March, [facility] [address] [id number] [address] [place] [address], [place] [address] March, Sialadenitis 527.2 [facility] [address] [id number] [address] [place] [address], [place] [address] Feb, [facility] [address] [id number] [address] [place] [address], [place] [address] Feb, [facility] [address] [id number] [address] [place] [address], [place] [address] Feb, [facility] [address] [id number] [address] [place] [address], [place] [address] Feb, [facility] [address] [id number] [address] [place] [address], [place] [address] Feb, [facility] [address] [id number] [address] [place] [address], [place] [address] Jan, [facility] [address] [id number] [address] [place] [phone] Jan, [facility] [address] [id number] [address] [place] [address], [place] [address] Jan, [facility] [address] [id number] [address] [place] [address], [place] [address] Jan, [facility] [address] [id number] [address] [place] [address], [place] [address] Jan, [facility] [address] [id number] [address] [place] [phone] Jan, [facility] [address] [id number] [address] [place] [address], [place] [address] Dec, [facility] [address] [id number] [address] [place] [address], [place] [address] Dec, [facility] [address] [id number] [address] [place] [address], [place] [address] Dec, [facility] [address] [id number] [address] [place] [address], [place] [address] Dec, [facility] [address] [id number] [address] [place] [address], [place] [address] Dec, [facility] [address] [id number] [address] [place] [address], [place] [address] Dec, [facility] [address] [id number] [address] [place] [address], [place] [address] Nov, [facility] [address] [id number] [address] [place] [address], [place] [address] Nov, [facility] [address] [id number] [address] [place] [address], [place] [address] Nov, [facility] [address] [id number] [address] [place] [address], [place] [address] Nov, [facility] [address] [id number] [address] [place] [address], [place] [address] Nov, [facility] [address] [id number] [address] [place] [address], [place] [address] Nov, [facility] [address] [id number] [address] [place] [address], [place] [address] Nov, [facility] [address] [id number] [address] [place] [address], [place] [address] Nov, [facility] [address] [id number] [address] [place] [address], [place] [address] Nov, [facility] [address] [id number] [address] [place] [address], [place] [address] Nov, [facility] [address] [id number] [address] [place] [address], [place] [address] Nov, [facility] [address] [id number] [address] [place] [address], [place] [address] Nov, [facility] [address] [id number] [address] [place] [address], [place] [address] Nov, [facility] [address] [id number] [address] [place] [address], [place] [address] Nov, [facility] [address] [id number] [address] [place] [address], [place] [address] Oct, [facility] [address] [id number] [address] [place] [address], [place] [address] Oct, [facility] [address] [id number] [address] [place] [address], [place] [address] Oct, [facility] [address] [id number] [address] [place] [address], [place] [address] Oct, [facility] [address] [id number] [address] [place] [address], [place] [address] Oct, [facility] [address] [id number] [address] [place] [address], [place] [address] 17 Oct, 2014 [facility] [address] [id number] [address] [place] [address], [place] [address] 17 Oct, 2014 [facility] [address] [id number] [address] [place] [address], [place] [address] Oct, [facility] [address] [id number] [address] [place] [address], [place] [address] Oct, [facility] [address] [id number] [address] [place] [address], [place] [address] Sep, [facility] [address] [id number] [address] [place] [address], [place] [address] Sep, [facility] [address] [id number] [address] [place] [address], [place] [address] Sep, [facility] [address] [id number] [address] [place] [address], [place] [address] Sep, [facility] [address] [id number] [address] [place] [address], [place] [address] Sep, [facility] [address] [id number] [address] [place] [address], [place] [address] Sep, [facility] [address] [id number] [address] [place] [address], [place] [address] Sep, [facility] [address] [id number] [address] [place] [address], [place] [address] Sep, [facility] [address] [id number] [address] [place] [address], [place] [address] Sep, [facility] [address] [id number] [address] [place] [address], [place] [address] Sep, [facility] [address] [id number] [address] [place] [address], [place] [address] Sep, [facility] [address] [id number] [address] [place] [address], [place] [address] Sep, [facility] [address] [id number] [address] [place] [address], [place] [address] Aug, [facility] [address] [id number] [address] [place] [address], [place] [address] Aug, [facility] [address] [id number] [address] [place] [address], [place] [address] Aug, [facility] [address] [id number] [address] [place] [address], [place] [address] Aug, [facility] [address] [id number] [address] [place] [address], [place] [address] Aug, [facility] [address] [id number] [address] [place] [address], [place] [address] 28 Aug, 2014 [facility] [address] [id number] [address] [place] [address], [place] [address] Aug, [facility] [address] [id number] [address] [place] [address], [place] [address] 17 Aug, 2014 [facility] [address] [id number] [address] [place] [address], [place] [address] 30 Jul, 2013 [facility] [address] [id number] [address] [place] [address], [place] [address] 30 Jul, 2013 [facility] [address] [id number] [address] [place] [address], [place] [address] 30 Jul, 2013 [facility] [address] [id number] [address] [place] [address], [place] [address] 30 Jul, 2013 [facility] [address] [id number] [address] [place] [address], [place] [address] 25 Jul, 2013 [facility] [address] [id number] [address] [place] [address], [place] [address] 25 Jul, 2013 [facility] [address] [id number] [address] [place] [address], [place] [address] 15 Jul, 2014 [facility] [address] [id number] [address] [place] [address], [place] [address] 15 Jul, 2014 [facility] [address] [id number] [address] [place] [address], [place] [address] 11 Jul, 2014 [facility] [address] [id number] [address] [place] [address], [place] [address] Jul, [facility] [address] [id number] [address] [place] [address], [place] [address] Jun, [facility] [address] [id number] [address] [place] [address], [place] [address] Jun, [facility] [address] [id number] [address] [place] [address], [place] [address] Jun, [facility] [address] [id number] [facility] [address] Jun, [facility] [address] [id number] [address] [place] [address], [place] [address] Jun, [facility] [address] [id number] [address] [place] [address], [place] [address] Jun, [facility] [address] [id number] [address] [place] [address], [place] [address] Jun, [facility] [address] [id number] [address] [place] [address], [place] [address] Jun, [facility] [address] [id number] [address] [place] [address], [place] [address] Jun, [facility] [address] [id number] [address] [place] [address], [place] [address] Jun, [facility] [address] [id number] [address] [place] [address], [place] [address] Jun, [facility] [address] [id number] [address] [place] [address], [place] [address] Jun, [facility] [address] [id number] [address] [place] [address], [place] [address] Jun, [facility] [address] [id number] [address] [place] [address], [place] [address] Jun, [facility] [address] [id number] [address] [place] [address], [place] [address] Jun, [facility] [address] [id number] [address] [place] [address], [place] [address] Jun, [facility] [address] [id number] [address] [place] [address], [place] [address] Jun, [facility] [address] [id number] [address] [place] [address], [place] [address] Jun, [facility] [address] [id number] [address] [place] [address], [place] [address] Jun, [facility] [address] [id number] [facility] [address] Jun, [facility] [address] [id number] [address] [place] [address], [place] [address] Jun, [facility] [address] [id number] [address] [place] [address], [place] [address] Jun, [facility] [address] [id number] [address] [place] [address], [place] [address] May, [facility] [address] [id number] [address] [place] [address], [place] [address] May, [facility] [address] [id number] [address] [place] [address], [place] [address] May, [facility] [address] [id number] [address] [place] [address], [place] [address] May, [facility] [address] [id number] [address] [place] [address], [place] [address] May, [facility] [address] [id number] [address] [place] [address], [place] [address] May, [facility] [address] [id number] [address] [place] [address], [place] [address] May, [facility] [address] [id number] [address] [place] [address], [place] [address] May, [facility] [address] [id number] [address] [place] [address], [place] [address] May, [facility] [address] [id number] [address] [place] [address], [place] [address] May, [facility] [address] [id number] [address] [place] [address], [place] [address] May, [facility] [address] [id number] [address] [place] [address], [place] [address] May, [facility] [address] [id number] [facility] [address] May, [facility] [address] [id number] [facility] [address] Apr, [facility] [address] [id number] [facility] [address] Apr, [facility] [address] [id number] [facility] [address] Apr, [facility] [address] [id number] [facility] [address] Apr, [facility] [address] [id number] [facility] [address] Apr, [facility] [address] [id number] [address] [place] [address], [place] [address] Apr, [facility] [address] [id number] [address] [place] [address], [place] [address] Apr, [facility] [address] [id number] [address] [place] [address], [place] [address] Apr, [facility] [address] [id number] [address] [place] [address], [place] [address] Apr, [facility] [address] [id number] [address] [place] [address], [place] [address] March, [facility] [address] [id number] [address] [place] [address], [place] [address] March, [facility] [address] [id number] [address] [place] [address], [place] [address] March, [facility] [address] [id number] [address] [place] [address], [place] [address] March, [facility] [address] [id number] [address] [place] [address], [place] [address] March, [facility] [address] [id number] [address] [place] [address], [place] [address] March, [facility] [address] [id number] [facility] [address] March, [facility] [address] [id number] [address] [place] [address], [place] [address] March, [facility] [address] [id number] [address] [place] [address], [place] [address] March, [facility] [address] [id number] [address] [place] [address], [place] [address] March, [facility] [address] [id number] [address] [place] [address], [place] [address] March, [facility] [address] [id number] [address] [place] [address], [place] [address] March, [facility] [address] [id number] [address] [place] [address], [place] [address] March, [facility] [address] [id number] [address] [place] [address], [place] [address] March, [facility] [address] [id number] [address] [place] [address], [place] [address] March, [facility] [address] [id number] [address] [place] [address], [place] [address] March, [facility] [address] [id number] [address] [place] [address], [place] [address] March, [facility] [address] [id number] [address] [place] [address], [place] [address] March, [facility] [address] [id number] [address] [place] [address], [place] [address] March, [facility] [address] [id number] [address] [place] [address], [place] [address] March, [facility] [address] [id number] [address] [place] [address], [place] [address] Feb, [facility] [address] [id number] [facility] [address] Feb, [facility] [address] [id number] [address] [place] [address], [place] [address] Feb, [facility] [address] [id number] [facility] [address] Feb, [facility] [address] [id number] [address] [place] [address], [place] [address] Feb, [facility] [address] [id number] [address] [place] [address], [place] [address] Feb, [facility] [address] [id number] [address] [place] [address], [place] [address] Feb, [facility] [address] [id number] [address] [place] [address], [place] [address] Feb, [facility] [address] [id number] [address] [place] [address], [place] [address] Jan, [facility] [address] [id number] [address] [place] [address], [place] [address] Jan, [facility] [address] [id number] [address] [place] [address], [place] [address] Jan, [facility] [address] [id number] [address] [place] [address], [place] [address] Jan, [facility] [address] [id number] [address] [place] [address], [place] [address] Jan, [facility] [address] [id number] [address] [place] [address], [place] [address] Jan, [facility] [address] [id number] [address] [place] [address], [place] [address] Jan, [facility] [address] [id number] [address] [place] [address], [place] [address] Jan, [facility] [address] [id number] [address] [place] [address], [place] [address] Jan, [facility] [address] [id number] [facility] [address] Jan, [facility] [address] [id number] [address] [place] [address], [place] [address] Dec, [facility] [address] [id number] [address] [place] [address], [place] [address] Dec, [facility] [address] [id number] [address] [place] [address], [place] [address] Dec, [facility] [address] [id number] [address] [place] [address], [place] [address] Dec, [facility] [address] [id number] [address] [place] [address], [place] [address] Dec, [facility] [address] [id number] [address] [place] [address], [place] [address] Dec, [facility] [address] [id number] [address] [place] [address], [place] [address] Dec, [facility] [address] [id number] [address] [place] [address], [place] [address] Dec, [facility] [address] [id number] [address] [place] [address], [place] [address] Nov, [facility] [address] [id number] [address] [place] [address], [place] [address] Nov, [facility] [facility] [address] [id number] [address] [place] [address], [place] [address] Nov, [facility] [address] [id number] [address] [place] [address], [place] [address] Nov, [facility] [address] [id number] [address] [place] [address], [place] [address] Nov, [facility] [address] [id number] [address] [place] [address], [place] [address] Nov, [facility] [address] [id number] [address] [place] [address], [place] [address] Nov, [facility] [address] [id number] [address] [place] [address], [place] [address] Nov, [facility] [address] [id number] [address] [place] [address], [place] [address] Nov, [facility] [address] [id number] [address] [place] [address], [place] [address] Nov, [facility] [address] [id number] [address] [place] [address], [place] [address] Nov, [facility] [address] [id number] [address] [place] [address], [place] [address] Nov, [facility] [address] [id number] [address] [place] [address], [place] [address] Nov, [facility] [address] [id number] [address] [place] [address], [place] [address] Oct, [facility] [address] [id number] [address] [place] [address], [place] [address] 30 Oct, 2013 [facility] [address] [id number] [address] [place] [address], [place] [address] Oct, [facility] [address] [id number] [address] [place] [address], [place] [address] Oct, [facility] [address] [id number] [address] [place] [address], [place] [address] Oct, [facility] [address] [id number] [address] [place] [address], [place] [address] Oct, [facility] [address] [id number] [address] [place] [address], [place] [address] 18 Oct, 2013 [facility] [address] [id number] [address] [place] [address], [place] [address] 18 Oct, 2013 [facility] [address] [id number] [address] [place] [address], [place] [address] Oct, [facility] [address] [id number] [address] [place] [address], [place] [address] Oct, [facility] [address] [id number] [address] [place] [address], [place] [address] Oct, [facility] [address] [id number] [address] [place] [address], [place] [address] Oct, [facility] [address] [id number] [address] [place] [address], [place] [address] Oct, [facility] [address] [id number] [address] [place] [address], [place] [address] Oct, [facility] [address] [id number] [address] [place] [address], [place] [address] Sep, [facility] [address] [id number] [address] [place] [address], [place] [address] Sep, [facility] [address] [id number] [address] [place] [address], [place] [address] Sep, [facility] [address] [id number] [address] [place] [address], [place] [address] Sep, [facility] [address] [id number] [address] [place] [address], [place] [address] Sep, [facility] [address] [id number] [address] [place] [address], [place] [address] Sep, [facility] [address] [id number] [address] [place] [address], [place] [address] Sep, [facility] [address] [id number] [address] [place] [address], [place] [address] Sep, [facility] [address] [id number] [address] [place] [address], [place] [address] Sep, [facility] [address] [id number] [address] [place] [address], [place] [address] Sep, [facility] [address] [id number] [address] [place] [address], [place] [address] Aug, [facility] [address] [id number] [address] [place] [address], [place] [address] Aug, [facility] [address] [id number] [address] [place] [address] Aug, [facility] [address] [id number] [address] [place] [address] Aug, [facility] [address] [id number] [address] [place] [address] Aug, [facility] [address] [id number] [address] [place] [address], [place] [address] Aug, [facility] [address] [id number] [address] [place] [address] Aug, [facility] [address] [id number] [address] [place] [address] Aug, [facility] [address] [id number] [address] [place] [address] Aug, [facility] [address] [id number] [address] [place] [address] Aug, [facility] [address] [id number] [address] [place] [address] 18 Aug, 2013 [facility] [address] [id number] [address] [place] [address] 18 Aug, 2013 [facility] [address] [id number] [address] [place] [address] 18 Aug, 2013 [facility] [address] [id number] [address] [place] [address], [place] [address] 18 Aug, 2013 [facility] [address] [id number] [address] [place] [address] 17 Aug, 2013 [facility] [address] [id number] [address] [place] [id number] 14 Aug, 2013 [facility] [address] [id number] [address] [place] [address], [place] [address] 14 Aug, 2013 [facility] [address] [id number] [address] [place] [address], [place] [address] 01 Aug, 2013 [facility] [address] [id number] [address] [place] [address], [place] [address] 20 Jul, 2013 [facility] [address] [id number] [address] [place] [address], [place] [address] 19 Jul, 2013 [facility] [address] [id number] [address] [place] [address], [place] [address] 18 Jul, 2013 [facility] [address] [id number] [address] [place] [address], [place] [address] 11 Jul, 2013 [facility] [address] [id number] [address] [place] [address], [place] [address] Jul, [facility] [address] [id number] [address] [place] [address], [place] [address] Jun, [facility] [address] [id number] [address] [place] [address], [place] [address] Jun, [facility] [address] [id number] [address] [place] [address], [place] [address] Jun, [facility] [address] [id number] [address] [place] [address], [place] [address] 15 Jun, 2013 [facility] [address] [id number] [address] [place] [address], [place] [address] 14 Jun, 2013 [facility] [address] [id number] [address] [place] [address], [place] [address] Jun, [facility] [address] [id number] [address] [place] [address], [place] [address] Jun, [facility] [address] [id number] [address] [place] [address], [place] [address] 08 Jun, 2013 [facility] [address] [id number] [address] [place] [address], [place] [address] Jun, [facility] [address] [id number] [address] [place] [address], [place] [address] Jun, [facility] [address] [id number] [address] [place] [address], [place] [address] May, [facility] [address] [id number] [address] [place] [address], [place] [address] May, [facility] [address] [id number] [address] [place] [address], [place] [address] May, [facility] [address] [id number] [address] [place] [address], [place] [address] May, [facility] [address] [id number] [address] [place] [address], [place] [address] May, [facility] [address] [id number] [address] [place] [address], [place] [address] May, [facility] [address] [id number] [address] [place] [address], [place] [address] May, [facility] [address] [id number] [address] [place] [address], [place] [address] May, [facility] [address] [id number] [address] [place] [address], [place] [address] May, [facility] [address] [id number] [address] [place] [address], [place] [address] Apr, [facility] [address] [id number] [address] [place] [address], [place] [address] Apr, [facility] [address] [id number] [address] [place] [address], [place] [address] Apr, [facility] [address] [id number] [address] [place] [address], [place] [address] Apr, [facility] [address] [id number] [address] [place] [address], [place] [address] Apr, [facility] [address] [id number] [address] [place] [address], [place] [address] 04 Apr, 2013 [facility] [address] [id number] [address] [place] [address], [place] [address] Apr, [facility] [address] [id number] [address] [place] [address], [place] [address] March, [facility] [address] [id number] [address] [place] [address], [place] [address] Feb, [facility] [address] [id number] [address] [place] [address], [place] [address] Feb, [facility] [address] [id number] [address] [place] [address], [place] [address] Feb, [facility] [address] [id number] [address] [place] [address], [place] [address] Jan, [facility] [address] [id number] [address] [place] [address], [place] [address] Jan, [facility] [address] [id number] [address] [place] [address], [place] [address] Jan, [facility] [address] [id number] [address] [place] [address], [place] [address] Jan, [facility] [address] [id number] [address] [place] [address], [place] [address] Jan, [facility] [address] [id number] [address] [place] [address], [place] [address] Jan, [facility] [address] [id number] [address] [place] [address], [place] [address] Jan, [facility] [address] [id number] [address] [place] [address], [place] [address] Jan, [facility] [address] [id number] [address] [place] [address], [place] [address] Dec, [facility] [address] [id number] [address] [place] [address], [place] [address] Dec, [facility] [address] [id number] [address] [place] [address], [place] [address] 13 Dec, 2012 [facility] [address] [id number] [address] [place] [address], [place] [address] 11 Dec, 2012 [facility] [address] [id number] [address] [place] [address], [place] [address] 07 Dec, 2012 [facility] [address] [id number] [address] [place] [address], [place] [address] 06 Dec, 2012 [facility] [address] [id number] [address] [place] [address], [place] [address] 05 Dec, 2012 [facility] [address] [id number] [address] [place] [address], [place] [address] Nov, [facility] [address] [id number] [address] [place] [address], [place] [address] Nov, [facility] [address] [id number] [address] [place] [address], [place] [address] Nov, [facility] [address] [id number] [address] [place] [address], [place] [address] Nov, [facility] [address] [id number] [address] [place] [address], [place] [address] Nov, [facility] [address] [id number] [address] [place] [address], [place] [address] Nov, [facility] [address] [id number] [address] [place] [address], [place] [address] Nov, [facility] [address] [id number] [address] [place] [address], [place] [address] Oct, [facility] [address] [id number] [address] [place] [address], [place] [address] Oct, [facility] [address] [id number] [address] [place] [address], [place] [address] Oct, [facility] [address] [id number] [address] [place] [address], [place] [address] Oct, [facility] [address] [id number] [address] [place] [address], [place] [address] Oct, [facility] [address] [id number] [address] [place] [address], [place] [address] Oct, [facility] [address] [id number] [address] [place] [address], [place] [address] Oct, [facility] [address] [id number] [address] [place] [address], [place] [address] Oct, [facility] [address] [id number] [address] [place] [address], [place] [address] Oct, [facility] [address] [id number] [address] [place] [address], [place] [address] Oct, [facility] [address] [id number] [address] [place] [address], [place] [address] Oct, [facility] [address] [id number] [address] [place] [address], [place] [address] Oct, [facility] [address] [id number] [address] [place] [address], [place] [address] Sep, [facility] [address] [id number] [address] [place] [address], [place] [address] Sep, [facility] [address] [id number] [address] [place] [address], [place] [address] Sep, [facility] [address] [id number] [address] [place] [address], [place] [address] Sep, [facility] [address] [id number] [address] [place] [address], [place] [address] Sep, [facility] [address] [id number] [address] [place] [address], [place] [address] Sep, [facility] [address] [id number] [address] [place] [address], [place] [address] Sep, [facility] [address] [id number] [address] [place] [address], [place] [address] Sep, [facility] [address] [id number] [address] [place] [address], [place] [address] Sep, [facility] [address] [id number] [address] [place] [address], [place] [address] Sep, [facility] [address] [id number] [address] [place] [address], [place] [address] Sep, [facility] [address] [id number] [address] [place] [address], [place] [address] Aug, [facility] [address] [id number] [address] [place] [address], [place] [address] Aug, [facility] [address] [id number] [address] [place] [address], [place] [address] Aug, [facility] [address] [id number] [address] [place] [address], [place] [address] Aug, [facility] [address] [id number] [address] [place] [address], [place] [address] Aug, [facility] [address] [id number] [address] [place] [address], [place] [address] Aug, [facility] [address] [id number] [address] [place] [address], [place] [address] Aug, [facility] [address] [id number] [address] [place] [address], [place] [address] Aug, [facility] [address] [id number] [address] [place] [address], [place] [address] Aug, [facility] [address] [id number] [address] [place] [address], [place] [address] Aug, [facility] [address] [id number] [address] [place] [address], [place] [address] 22 Jul, 2012 [facility] [address] [id number] [address] [place] [address], [place] [address] Jul, [facility] [address] [id number] [facility] [address] Jul, [facility] [address] [id number] [address] [place] [address], [place] [address] Jul, [facility] [address] [id number] [address] [place] [address], [place] [address] Jun, [facility] [address] [id number] [address] [place] [address], [place] [address] Jun, [facility] [address] [id number] [address] [place] [address], [place] [address] Jun, [facility] [address] [id number] [address] [place] [address], [place] [address] Jun, [facility] [address] [id number] [address] [place] [address], [place] [address] Jun, [facility] [address] [id number] [address] [place] [address], [place] [address] Jun, [facility] [address] [id number] [address] [place] [address], [place] [address] Jun, [facility] [address] [id number] [address] [place] [address], [place] [address] May, [facility] [address] [id number] [address] [place] [address], [place] [address] May, [facility] [address] [id number] [address] [place] [address], [place] [address] May, [facility] [address] [id number] [address] [place] [address], [place] [address] May, [facility] [address] [id number] [address] [place] [address], [place] [address] May, [facility] [address] [id number] [address] [place] [address], [place] [address] Apr, [facility] [address] [id number] [address] [place] [address], [place] [address] 18 Apr, 2012 [facility] [address] [id number] [address] [place] [address], [place] [address] Apr, [facility] [address] [id number] [address] [place] [address], [place] [address] Apr, [facility] [address] [id number] [address] [place] [address], [place] [address] Apr, [facility] [address] [id number] [address] [place] [address], [place] [address] March, [facility] [address] [id number] [address] [place] [address], [place] [address] March, [facility] [address] [id number] [address] [place] [address], [place] [address] March, [facility] [address] [id number] [address] [place] [address], [place] [address] March, [facility] [address] [id number] [address] [place] [address], [place] [address] March, [facility] [address] [id number] [address] [place] [address], [place] [address] March, [facility] [address] [id number] [address] [place] [address], [place] [address] March, [facility] [address] [id number] [address] [place] [address], [place] [address] March, [facility] [address] [id number] [address] [place] [address], [place] [address] March, [facility] [address] [id number] [address] [place] [address], [place] [address] March, [facility] [address] [id number] [address] [place] [address], [place] [address] Feb, [facility] [address] [id number] [address] [place] [address], [place] [address] Feb, [facility] [address] [id number] [address] [place] [address], [place] [address] Feb, [facility] [address] [id number] [address] [place] [address], [place] [address] Feb, [facility] [address] [id number] [address] [place] [address], [place] [address] Feb, [facility] [address] [id number] [address] [place] [address], [place] [address] Feb, [facility] [address] [id number] [address] [place] [address], [place] [address] Feb, [facility] [address] [id number] [address] [place] [address], [place] [address] Feb, [facility] [address] [id number] [address] [place] [address], [place] [address] Feb, [facility] [address] [id number] [address] [place] [address], [place] [address] Jan, [facility] [address] [id number] [address] [place] [address], [place] [address] Jan, [facility] [address] [id number] [address] [place] [address], [place] [address] 05 Jan, 2012 [facility] [address] [id number] [address] [place] [address], [place] [address] Jan, [facility] [address] [id number] [address] [place] [address], [place] [address] Dec, [facility] [address] [id number] [address] [place] [address], [place] [address] Dec, [facility] [address] [id number] [address] [place] [address], [place] [address] Nov, [facility] [address] [id number] [address] [place] [address], [place] [address] Nov, [facility] [address] [id number] [address] [place] [address] Nov, [facility] [address] [id number] [address] [place] [address] Nov, [facility] [address] [id number] [address] [place] [address] Nov, [facility] [address] [id number] [address] [place] [address] Oct, [facility] [address] [id number] [address] [place] [id number] Oct, [facility] [address] [id number] [address] [place] [address] Oct, [facility] [address] [id number] [address] [place] [id number] Oct, [facility] [address] [id number] [address] [place] [address] Oct, [facility] [address] [id number] [address] [place] [id number] Oct, [facility] [address] [id number] [address] [place] [phone] Oct, [facility] [address] [id number] [address] [place] [phone] Oct, [facility] [address] [id number] [address] [place] [phone] Sep, IMMUNIZATIONS No Known Immunizations SOCIAL HISTORY [...] History No Surgical history information Hospitalization History [facility]- Urosepsis, ab d pain and fever, discharged 11/27/2017 11/26/2017 Hospitalization History [facility]- Went Unrepsonsive, Hit head 2017 Hospitalization History [facility]- Back Pain 8
--- OUTSIDE RECORDS SUMMARY | 2020-06-18 15:39 | XMS REPORT ---
Author Author Sanjuanita Abdul Doctor Organization [facility] Address Unknown Phone Unavailable Care Team Providers Care Telephone Diaphragm Assembler Name Role Phone Migration, Doctor Unavailable Unavailable PROBLEMS Type Condition ICD9-CM Code ZUC24-ZT Code Onset Dates Condition S tatus SNOMED Code Problem Hypertension I10 Active 2252752 3 Problem Hyperlipidemia E78.5 Active 86148 004 Problem Coronary artery disease I25.10 Active 60440027 Problem Low back pain M54.5 Active 686100 009 Problem Other chronic pain G89.29 Active 8 7011790 Problem Ventral hernia without obstruction or gangrene K43 .9 Active 306100385 Problem Type 2 diabetes mellitus wit hout complication, without long-term current use of insulin E11.9 Active 810687051 Problem Anxiety F41.9 Active 32553867 Problem Peripheral vascular disease I73.9 Ac tive 894810063 Problem Insomnia G47.00 Active 667346986 Problem Microcytic anemia D50.9 Active 23 4101421 Problem Pharyngeal dysphagia R13.13 Active 56043989725166 Problem Other iron deficiency anemia D50.8 A ctive 94577687 Problem Reactive depression F32.9 Active 13278508 Problem Paroxysmal atrial fibrillation I48.0 Active 292675138 Problem Postmenopausal atrophic vaginitis N95.2 Active 45981467 Problem Encounter for suprapubic catheter care Z43.5 Active 670003131 Problem Neurogenic bladder N31.9 Active 3 22519097 ALLERGIES No Information ENCOUNTERS Encounter Location Date Diagnosis [place] [address] [id number] [address] [place] [phone] 17 Apr, 2020 Anxiety F41.9 and Strain of right shoulder, subsequent encounter S46.911D [place] [address] [id number] [address] [place] [id number] 04 Apr, 2020 [facility] [address] [id number] [address] [place] [address] March, [facility] [address] [id number] [address] [place] [address] March, Anxiety F41.9 and Strain of right shoulder, subsequent encounter S46.911D [facility] [address] [id number] [address] [place], [place] [id number] Feb, Anxiety F41.9 and Strain of right shoulder, subsequent encounter S46.911D [facility] [address] [id number] [address] [place] [address] Jan, Anxiety F41.9 and Strain of right shoulder, subsequent encounter S46.911D [facility] [address] [id number] [address] [place] [address] Jan, [facility] [address] [place] [id number] Jan, Neurogenic bladder N31.9 [facility] [address] [id number] [address] [place] [address] Dec, [facility] [address] [id number] [address] [place] [address] Dec, [facility] [address] [id number] [address] [place] [address] Dec, Anxiety F41.9 and Strain of right shoulder, subsequent encounter S46.911D [facility] [address] [id number] [address] [place] [address] 10 Dec, 2019 Other iron deficiency anemia D50.8 [facility] [address] [id number] [address] [place] [address] Dec, [facility] [address] [place] [id number] Dec, Encounter for suprapubic catheter care Z 43.5 and Microcytic anemia D50.9 [facility] [address] [id number] [address] [place] [address] Dec, [facility] [address] [id number] [address] [place] [address] Nov, Anxiety F41.9 and Strain of right shoulder, subsequent encounter S46.911D [facility] [address] [id number] [address] [place] [address] Nov, Hypertension I10 [facility] [address] [place] [id number] Nov, Pneumonia of both lungs due to infectiou s organism, unspecified part of lung J18.9 and Suprapubic catheter Z93.59 [place] [address] [id number] [address] [place] [address] Nov, Hypertension I10 and Reactiv e depression F32.9 [place] [address] [id number] [address] [place] [phone] Oct, Strain of right shoulder, scherer bsequent encounter S46.911D and Anxiety F41.9 [place] [address] [id number] [address] [place] [address] Oct, [facility] [address] [place] [id number] Oct, Suprapubic catheter Z93.59 and Candidias is, intertriginous B37.2 [facility] [address] [id number] [address] [place] [address] Oct, Suprapubic catheter Z93.59 [facility] [address] [id number] [address] [place] [address] Oct, Anxiety F41.9 and Strain of right shoulder, subsequent encounter S46.911D [facility] [address] [id number] [address] [place] [address] Sep, [place] [address] [id number] [address] [place] [address] Sep, [place] [address] [id number] [address] [place] [address] Sep, [facility] [address] [place] [id number] Sep, Suprapubic catheter Z93.59 [facility] [address] [id number] [address] [place] [address] Sep, Anxiety F41.9 and Strain of right shoulder, subsequent encounter S46.911D [facility] [address] [id number] [address] [place] [address] Aug, [facility] [address] [id number] [address] [place] [address] Aug, [facility] [address] [id number] [address] [place] [address] Aug, Anxiety F41.9 and Strain of right shoulder, subsequent encounter S46.911D [facility] [address] [facility] [place] [id number] Aug, Suprapubic catheter Z93.59 [facility] [address] [id number] [address] [place] [address] Jul, Strain of right shoulder, scherer bsequent encounter S46.911D and Anxiety F41.9 [facility] [address] [id number] [address] [place] [address] Jul, Anxiety F41.9 [facility] [address] [id number] [address] [place] [address] Jun, [facility] [address] [id number] [address] [place] [address] Jun, [facility] [address] [id number] [address] [place] [address] Jun, [facility] [address] [id number] [address] [place] [address] Jun, Strain of right shoulder, scherer bsequent encounter S46.911D [facility] [address] [id number] [address] [place] [address] Jun, Strain of right shoulder, scherer bsequent encounter S46.911D [place] [address] [id number] [address] [place] [address] Jun, Anxiety F41.9 [facility] [address] [place] [id number] Jun, Neurogenic bladder N31.9 and Anxiety F41 .9 [facility] [address] [place] [id number] May, Anxiety F41.9 [place] [address] [id number] [address] [place] [address] May, Dysuria R30.0 [place] [address] [id number] [address] [place] [address] May, Strain of right shoulder, scherer bsequent encounter S46.911D and Anxiety F41.9 [place] [address] [id number] [address] [place] [address] Apr, [facility] [address] [place] [id number] Apr, Strain of right shoulder, subsequent enc ounter S46.911D [place] [address] [id number] [address] [place] [address] 14 Apr, 2019 Strain of right shoulder, scherer bsequent encounter S46.911D and Anxiety F41.9 [facility] [address] [place] [id number] 13 Apr, 2019 Type 2 diabetes mellitus without complic ation, without long-term current use of insulin E11.9 and Neurogenic bladder N31.9 [facility] [address] [place] [id number] Apr, Strain of right shoulder, subsequent enc ounter S46.911D ; History of GI bleed Z87.19 ; Neurogenic bladder N31.9 and Reactive depression F32.9 [place] [address] [id number] [address] [place] [address] 10 Apr, 2019 Acute pain of left shoulder M25.512 [place] [address] [id number] [address] [place] [address] Apr, [facility] [address] [id number] [address] [place] [address] Apr, Anxiety F41.9 and Other veneer stapler 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 [facility] [address] [place] [id number] March, Gastrointestinal hemorrhage associated w ith acute gastritis K29.01 [facility] [address] [id number] [address] [place] [address] March, [facility] [address] [place] [id number] March, Bronchitis J40 [facility] [address] [id number] [address] [place] [address] March, Cough R05 [facility] [address] [id number] [address] [place] [address] March, Other chronic pain G89.29 [facility] [address] [id number] [address] [place] [address] March, Anxiety F41.9 [facility] [address] [id number] [address] [place] [address] March, [facility] [address] [id number] [address] [place] [address] Feb, Other chronic pain G89.29 [facility] [address] [id number] [address] [place] [address] Feb, Anxiety F41.9 [facility] [address] [id number] [address] [place] [address] Feb, Other chronic pain G89.29 [facility] [address] [place] [id number] Feb, Neurogenic bladder N31.9 and Suprapubic catheter Z93.59 [facility] [address] [id number] [address] [place] [address] Jan, Anxiety F41.9 [facility] [address] [id number] [address] [place] [address] Dec, Anxiety F41.9 [facility] [address] [id number] [address] [place] [address] Dec, Other chronic pain G89.29 an d Anxiety F41.9 [facility] [address] [id number] [address] [place] [address] Dec, [facility] [address] [place] [id number] Dec, Neurogenic bladder N31.9 and Suprapubic catheter Z93.59 [facility] [address] [id number] [address] [place] [address] Nov, Other chronic pain G89.29 an d Anxiety F41.9 [facility] [address] [id number] [address] [place] [address] Nov, [facility] [address] [place] [id number] Nov, Suprapubic catheter Z93.59 [facility] [address] [id number] [address] [place] [address] Oct, Other chronic pain G89.29 an d Anxiety F41.9 [facility] [address] [id number] [address] [place] [address] Oct, [facility] [address] [id number] [address] [place] [address] Oct, Suprapubic catheter Z93.59 [facility] [address] [id number] [address] [place] [address] Oct, [facility] [address] [place] [id number] Oct, [facility] [address] [id number] [address] [place] [address] Oct, Anxiety F41.9 [facility] [address] [id number] [address] [place] [address] Oct, Anxiety F41.9 [facility] [address] [place] [id number] Oct, Other chronic pain G89.29 [facility] [address] [id number] [address] [place] [address] Sep, Other chronic pain G89.29 [facility] [address] [place] [id number] Sep, Suprapubic catheter Z93.59 and Cervicalg ia M54.2 [facility] [address] [id number] [address] [place] [phone] Sep, [facility] [address] [id number] [address] [place] [address] Sep, [facility] [address] [id number] [address] [place] [phone] Sep, [facility] [address] [place] [id number] Aug, Cystitis N30.90 [facility] [address] [id number] [address] [place] [address] Aug, [facility] [address] [id number] [address] [place] [address] Aug, Other chronic pain G89.29 [facility] [address] [id number] [address] [place] [address] Aug, [facility] [address] [place] [id number] Aug, Encounter for suprapubic catheter care Z 43.5 [facility] [address] [id number] [address] [place] [address] Jul, [facility] [address] [place] [id number] Jul, [facility] [address] [id number] [address] [place] [address] Jul, Other chronic pain G89.29 [facility] [address] [id number] [address] [place] [address] Jul, [facility] [address] [id number] [address] [place] [address] Jul, [facility] [address] [place] [id number] Jun, Postmenopausal atrophic vaginitis N95.2 [facility] [address] [id number] [address] [place] [address] Jun, Other chronic pain G89.29 [facility] [address] [id number] [address] [place] [address] Jun, [facility] [address] [place] [id number] May, Anxiety F41.9 ; Type 2 diabetes mellitus without complication, without long-term current use of insulin E11.9 ; Hypertension I10 ; Low back pain M54.5 ; Paroxysmal atrial fibrillation I48.0 and 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 [facility] [address] [id number] [address] [place] [address] May, Other chronic pain G89.29 [facility] [address] [place] [id number] May, Low back pain M54.5 [facility] [address] [id number] [address] [place] [address] May, [facility] [address] [id number] [address] [place] [address] Apr, Other chronic pain G89.29 [facility] [address] [id number] [address] [place] [address] Apr, [facility] [address] [id number] [address] [place] [address] Apr, [facility] [address] [place] [id number] Apr, Closed compression fracture of L3 lumbar vertebra with routine healing, subsequent encounter S32.030D [facility] [address] [place] [id number] 14 Apr, 2018 Low back pain M54.5 [facility] [address] [place] [id number] 12 Apr, 2018 Coccydynia M53.3 [facility] [address] [id number] [address] [place] [address] March, [facility] [address] [id number] [address] [place] [address] March, Other chronic pain G89.29 [facility] [address] [id number] [address] [place] [address] March, [facility] [address] [id number] [address] [place] [address] March, [facility] [address] [id number] [address] [place] [address] Feb, [facility] [address] [id number] [address] [place] [address] Feb, Other chronic pain G89.29 [facility] [address] [place] [id number] Feb, Other chronic pain G89.29 and Anxiety F4 1.9 [facility] [address] [id number] [address] [place] [address] Feb, [facility] [address] [id number] [address] [place] [address] Jan, [facility] [address] [id number] [address] [place] [address] Jan, [facility] [address] [id number] [address] [place] [address] Jan, [facility] [address] [id number] [address] [place] [address] Jan, [facility] [address] [id number] [address] [place] [address] Dec, [facility] [address] [place] [id number] Dec, Peripheral vascular disease I73.9 ; 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 [address] [id number] [place] [id number] Nov, Anxiety F41.9 [facility] [address] [id number] [address] [place] [address] Nov, [facility] [address] [id number] [place] [id number] Nov, Anxiety F41.9 [facility] [address] [place] [id number] Nov, Status post surgery Z98.890 ; Confused R 41.0 ; Anxiety F41.9 and Other chronic pain G89.29 [facility] [address] [id number] [place] [id number] Nov, Other chronic pain G89.29 [facility] [address] [id number] [address] [place] [address] Oct, [facility] [address] [id number] [place] [id number] Oct, Other chronic pain G89.29 [facility] [address] [id number] [address] [place] [address] Oct, Anxiety F41.9 [facility] [address] [id number] [place] [id number] Sep, Other chronic pain G89.29 [facility] [address] [id number] [place] [id number] Sep, [facility] [address] [place] [id number] Aug, Dysuria R30.0 and Anxiety F41.9 [facility] [address] [id number] [address] [place] [address] Aug, [facility] [address] [id number] [place] [id number] Aug, Other chronic pain G89.29 [facility] [address] [id number] [address] [place] [address] Jul, Other chronic pain G89.29 [facility] [address] [id number] [place] [id number] Jun, [facility] [address] [id number] [place] [id number] Jun, Other chronic pain G89.29 [facility] [address] [id number] [address] [place] [address] Jun, [facility] [address] [id number] [address] [place] [address] May, Other chronic pain G89.29 [facility] [address] [id number] [address] [place] [address] Apr, Other chronic pain G89.29 [facility] [address] [place] [id number] Apr, Reactive depression F32.9 and Pharyngeal dysphagia R13.13 [facility] [address] [id number] [address] [place] [address] Apr, Urinary tract infection with out hematuria, site unspecified N39.0 [facility] [address] [id number] [address] [place] [address] March, Other chronic pain G89.29 [facility] [address] [id number] [address] [place] [address] Feb, Other chronic pain G89.29 [facility] [address] [id number] [address] [place] [address] Feb, [facility] [address] [id number] [facility] [place] [id number] Feb, [facility] [address] [place] [id number] Feb, Dysuria R30.0 and Ventral hernia without obstruction or gangrene K43.9 [facility] [address] [id number] [address] [place] [address] Jan, Other chronic pain G89.29 [facility] [address] [id number] [place] [id number] Dec, Other chronic pain G89.29 [facility] [address] [id number] [address] [place] [address] Nov, Other chronic pain G89.29 [facility] [address] [place] [id number] Nov, Lymphadenitis I88.9 [facility] [address] [id number] [address] [place] [address] Nov, Other chronic pain G89.29 [facility] [address] [id number] [address] [place] [address] Nov, [facility] [address] [id number] [place] [id number] Nov, Other chronic pain G89.29 [facility] [address] [place] [id number] Oct, Low back pain M54.5 ; Hypertension I10 a nd Type 2 diabetes mellitus without complication, without long-term current use of insulin E11.9 [facility] [address] [id number] [address] [place] [phone] Oct, [facility] [address] [id number] [address] [place] [phone] Oct, [facility] [address] [id number] [address] [place] [phone] Oct, [facility] [address] [id number] [address] [place] [phone] Oct, [facility] [address] [id number] [address] [place] [phone] Sep, [facility] [address] [id number] [address] [place] [phone] Sep, [facility] [address] [id number] [address] [place] [phone] Aug, Other chronic pain G89.29 [facility] [address] [id number] [address] [place] [phone] Jul, [facility] [address] [id number] [address] [place] [phone] Jul, [facility] [address] [id number] [address] [place] [phone] Jul, [facility] [address] [id number] [address] [place] [phone] Jun, [facility] [address] [id number] [address] [place] [phone] Jun, Via [facility] [address] [place] [id number] Jun, Low back pain M54.5 ; Other chronic pain G89.29 and Coronary artery disease I25.10 [facility] [address] [id number] [address] [place] [id number] Jun, [facility] [address] [id number] [address] [place] [phone] May, [facility] [address] [id number] [address] [place] [id number] May, [facility] [address] [id number] [address] [place] [id number] 13 May, 2016 Other chronic pain G89.29 [facility] [address] [id number] [address] [place] [address] 13 May, 2016 [facility] [address] [id number] [address] [place] [address] 28 Apr, 2016 [facility] [address] [id number] [address] [place] [address] 17 Apr, 2016 Acute cystitis without hemat uria N30.00 [facility] [address] [id number] [address] [place] [address] 16 Apr, 2016 Acute cystitis without hemat uria N30.00 ; Coronary artery disease I25.10 ; Low back pain M54.5 and Other chronic pain G89.29 [facility] [address] [id number] [address] [place] [address] 13 Apr, 2016 Other chronic pain G89.29 [facility] [address] [id number] [address] [place] [address] March, Other chronic pain G89.29 [facility] [address] [id number] [address] [place] [address] 18 Feb, 2016 [facility] [address] [id number] [address] [place] [address] 15 Feb, 2016 Arthritis M19.90 [facility] [address] [id number] [address] [place] [address] Feb, [facility] [address] [id number] [address] [place] [address] 30 Jan, 2016 [facility] [address] [id number] [address] [place] [address] Jan, [facility] [address] [id number] [address] [place] [address] Jan, Other chronic pain G89.29 [facility] [address] [id number] [address] [place] [address] Jan, Hypertension I10 ; Coronary artery disease I25.10 and Insomnia G47.00 [facility] [address] [id number] [address] [place] [address] Jan, [facility] [address] [id number] [address] [place] [address] Dec, Right hip pain M25.551 [facility] [address] [id number] [address] [place] [address] Dec, [facility] [address] [id number] [address] [place] [address] Dec, [facility] [address] [id number] [address] [place] [address] Dec, [facility] [address] [id number] [address] [place] [address] Dec, Other chronic pain G89.29 [facility] [address] [id number] [address] [place] [address] Dec, [facility] [address] [id number] [address] [place] [address] Nov, [facility] [address] [id number] [address] [place] [address] Nov, Other chronic pain G89.29 [facility] [address] [id number] [address] [place] [address] Nov, Right hip pain M25.551 and C oronary artery disease I25.10 [facility] [address] [id number] [address] [place] [address] Nov, Other chronic pain G89.29 [facility] [address] [id number] [address] [place] [address] Oct, [facility] [address] [id number] [address] [place] [address] Oct, [facility] [address] [id number] [address] [place] [address] Sep, [facility] [address] [id number] [address] [place] [address] Sep, [facility] [address] [id number] [address] [place] [address] Aug, [facility] [address] [id number] [address] [place] [address] Aug, Hypertension I10 ; Coronary artery disease I25.10 and Arthritis M19.90 [facility] [address] [id number] [address] [place] [address] Jun, [facility] [address] [id number] [address] [place] [address] Jun, Essential hypertension, jayson gn 401.1 ; Other chronic pain 338.29 and Chronic airway obstruction, not elsewhere classified 496 [facility] [address] [id number] [address] [place] [address] Jun, [facility] [address] [id number] [address] [place] [address] Jun, [facility] [address] [id number] [address] [place] [address] Jun, [facility] [address] [id number] [address] [place] [address] May, [facility] [address] [id number] [address] [place] [address] May, [facility] [address] [id number] [address] [place] [address] Apr, [facility] [address] [id number] [address] [place] [address] Apr, [facility] [address] [id number] [address] [place] [address] Apr, [facility] [address] [id number] [address] [place] [address], [place] [address] March, [facility] [address] [id number] [address] [place] [address], [place] [address] March, [facility] [address] [id number] [address] [place] [address], [place] [address] March, [facility] [address] [id number] [address] [place] [address], [place] [address] March, [facility] [address] [id number] [address] [place] [address], [place] [address] March, Sialadenitis 527.2 [facility] [address] [id number] [address] [place] [address], [place] [address] Feb, [facility] [address] [id number] [address] [place] [address], [place] [address] Feb, [facility] [address] [id number] [address] [place] [address], [place] [address] Feb, [facility] [address] [id number] [address] [place] [address], [place] [address] Feb, [facility] [address] [id number] [address] [place] [address], [place] [address] Feb, [facility] [address] [id number] [address] [place] [address], [place] [address] Jan, [facility] [address] [id number] [address] [place] [address] Jan, [facility] [address] [id number] [address] [place] [address], [place] [address] Jan, [facility] [address] [id number] [address] [place] [address], [place] [address] Jan, [facility] [address] [id number] [address] [place] [address], [place] [address] Jan, [facility] [address] [id number] [address] [place] [address] Jan, [facility] [address] [id number] [address] [place] [address], [place] [address] Dec, [facility] [address] [id number] [address] [place] [address], [place] [address] Dec, [facility] [address] [id number] [address] [place] [address], [place] [address] Dec, [facility] [address] [id number] [address] [place] [address], [place] [address] Dec, [facility] [address] [id number] [address] [place] [address], [place] [address] Dec, [facility] [address] [id number] [address] [place] [address], [place] [address] Dec, [facility] [address] [id number] [address] [place] [address], [place] [address] Nov, [facility] [address] [id number] [address] [place] [address], [place] [address] Nov, [facility] [address] [id number] [address] [place] [address], [place] [address] Nov, [facility] [address] [id number] [address] [place] [address], [place] [address] Nov, [facility] [address] [id number] [address] [place] [address], [place] [address] Nov, [facility] [address] [id number] [address] [place] [address], [place] [address] Nov, [facility] [address] [id number] [address] [place] [address], [place] [address] Nov, [facility] [address] [id number] [address] [place] [address], [place] [address] Nov, [facility] [address] [id number] [address] [place] [address], [place] [address] Nov, [facility] [address] [id number] [address] [place] [address], [place] [address] Nov, [facility] [address] [id number] [address] [place] [address], [place] [address] Nov, [facility] [address] [id number] [address] [place] [address], [place] [address] Nov, [facility] [address] [id number] [address] [place] [address], [place] [address] Nov, [facility] [address] [id number] [address] [place] [address], [place] [address] Nov, [facility] [address] [id number] [address] [place] [address], [place] [address] Oct, [facility] [address] [id number] [address] [place] [address], [place] [address] Oct, [facility] [address] [id number] [address] [place] [address], [place] [address] Oct, [facility] [address] [id number] [address] [place] [address], [place] [address] Oct, [facility] [address] [id number] [address] [place] [address], [place] [address] Oct, [facility] [address] [id number] [address] [place] [address], [place] [address] 17 Oct, 2014 [facility] [address] [id number] [address] [place] [address], [place] [address] 17 Oct, 2014 [facility] [address] [id number] [address] [place] [address], [place] [address] Oct, [facility] [address] [id number] [address] [place] [address], [place] [address] Oct, [facility] [address] [id number] [address] [place] [address], [place] [address] Sep, [facility] [address] [id number] [address] [place] [address], [place] [address] Sep, [facility] [address] [id number] [address] [place] [address], [place] [address] Sep, [facility] [address] [id number] [address] [place] [address], [place] [address] Sep, [facility] [address] [id number] [address] [place] [address], [place] [address] Sep, [facility] [address] [id number] [address] [place] [address], [place] [address] Sep, [facility] [address] [id number] [address] [place] [address], [place] [address] Sep, [facility] [address] [id number] [address] [place] [address], [place] [address] Sep, [facility] [address] [id number] [address] [place] [address], [place] [address] Sep, [facility] [address] [id number] [address] [place] [address], [place] [address] Sep, [facility] [address] [id number] [address] [place] [address], [place] [address] Sep, [facility] [address] [id number] [address] [place] [address], [place] [address] Sep, [facility] [address] [id number] [address] [place] [address], [place] [address] Aug, [facility] [address] [id number] [address] [place] [address], [place] [address] Aug, [facility] [address] [id number] [address] [place] [address], [place] [address] Aug, [facility] [address] [id number] [address] [place] [address], [place] [address] Aug, [facility] [address] [id number] [address] [place] [address], [place] [address] Aug, [facility] [address] [id number] [address] [place] [address], [place] [address] 28 Aug, 2014 [facility] [address] [id number] [address] [place] [address], [place] [address] Aug, [facility] [address] [id number] [address] [place] [address], [place] [address] 17 Aug, 2014 [facility] [address] [id number] [address] [place] [address], [place] [address] 30 Jul, 2013 [facility] [address] [id number] [address] [place] [address], [place] [address] 30 Jul, 2013 [facility] [address] [id number] [address] [place] [address], [place] [address] 30 Jul, 2013 [facility] [address] [id number] [address] [place] [address], [place] [address] 30 Jul, 2013 [facility] [address] [id number] [address] [place] [address], [place] [address] 25 Jul, 2013 [facility] [address] [id number] [address] [place] [address], [place] [address] 25 Jul, 2013 [facility] [address] [id number] [address] [place] [address], [place] [address] 15 Jul, 2014 [facility] [address] [id number] [address] [place] [address], [place] [address] 15 Jul, 2014 [facility] [address] [id number] [address] [place] [address], [place] [address] 11 Jul, 2014 [facility] [address] [id number] [address] [place] [address], [place] [address] Jul, [facility] [address] [id number] [address] [place] [address], [place] [address] Jun, [facility] [address] [id number] [address] [place] [address], [place] [address] Jun, [facility] [address] [id number] [address] [place] [address], [place] [address] Jun, [facility] [address] [id number] [facility] [address] Jun, [facility] [address] [id number] [address] [place] [address], [place] [address] Jun, [facility] [address] [id number] [address] [place] [address], [place] [address] Jun, [facility] [address] [id number] [address] [place] [address], [place] [address] Jun, [facility] [address] [id number] [address] [place] [address], [place] [address] Jun, [facility] [address] [id number] [address] [place] [address], [place] [address] Jun, [facility] [address] [id number] [address] [place] [address], [place] [address] Jun, [facility] [address] [id number] [address] [place] [address], [place] [address] Jun, [facility] [address] [id number] [address] [place] [address], [place] [address] Jun, [facility] [address] [id number] [address] [place] [address], [place] [address] Jun, [facility] [address] [id number] [address] [place] [address], [place] [address] Jun, [facility] [address] [id number] [address] [place] [address], [place] [address] Jun, [facility] [address] [id number] [address] [place] [address], [place] [address] Jun, [facility] [address] [id number] [address] [place] [address], [place] [address] Jun, [facility] [address] [id number] [address] [place] [address], [place] [address] Jun, [facility] [address] [id number] [address] [place] [address], [place] [address] Jun, [facility] [address] [id number] [facility] [address] Jun, [facility] [address] [id number] [address] [place] [address], [place] [address] Jun, [facility] [address] [id number] [address] [place] [address], [place] [address] Jun, [facility] [address] [id number] [address] [place] [address], [place] [address] May, [facility] [address] [id number] [address] [place] [address], [place] [address] May, [facility] [address] [id number] [address] [place] [address], [place] [address] May, [facility] [address] [id number] [address] [place] [address], [place] [address] May, [facility] [address] [id number] [address] [place] [address], [place] [address] May, [facility] [address] [id number] [address] [place] [address], [place] [address] May, [facility] [address] [id number] [address] [place] [address], [place] [address] May, [facility] [address] [id number] [address] [place] [address], [place] [address] May, [facility] [address] [id number] [address] [place] [address], [place] [address] May, [facility] [address] [id number] [address] [place] [address], [place] [address] May, [facility] [address] [id number] [address] [place] [address], [place] [address] May, [facility] [address] [id number] [address] [place] [address], [place] [address] May, [facility] [address] [id number] [facility] [address] May, [facility] [address] [id number] [facility] [place] [address] Apr, [facility] [address] [id number] [facility] [place] [address] Apr, [facility] [address] [id number] [facility] [place] [address] Apr, [facility] [address] [id number] [facility] [place] [address] Apr, [facility] [address] [id number] [facility] [place] [address] Apr, [facility] [address] [id number] [address] [place] [address], [place] [address] Apr, [facility] [address] [id number] [address] [place] [address], [place] [address] Apr, [facility] [address] [id number] [address] [place] [address], [place] [address] Apr, [facility] [address] [id number] [address] [place] [address], [place] [address] Apr, [facility] [address] [id number] [address] [place] [address], [place] [address] March, [facility] [address] [id number] [address] [place] [address], [place] [address] March, [facility] [address] [id number] [address] [place] [address], [place] [address] March, [facility] [address] [id number] [address] [place] [address], [place] [address] March, [facility] [address] [id number] [address] [place] [address], [place] [address] March, [facility] [address] [id number] [address] [place] [address], [place] [address] March, [facility] [address] [id number] [facility] [place] [address] March, [facility] [address] [id number] [address] [place] [address], [place] [address] March, [facility] [address] [id number] [address] [place] [address], [place] [address] March, [facility] [address] [id number] [address] [place] [address], [place] [address] March, [facility] [address] [id number] [address] [place] [address], [place] [address] March, [facility] [address] [id number] [address] [place] [address], [place] [address] March, [facility] [address] [id number] [address] [place] [address], [place] [address] March, [facility] [address] [id number] [address] [place] [address], [place] [address] March, [facility] [address] [id number] [address] [place] [address], [place] [address] March, [facility] [address] [id number] [address] [place] [address], [place] [address] March, [facility] [address] [id number] [address] [place] [address], [place] [address] March, [facility] [address] [id number] [address] [place] [address], [place] [address] March, [facility] [address] [id number] [address] [place] [address], [place] [address] March, [facility] [address] [id number] [address] [place] [address], [place] [address] March, [facility] [address] [id number] [address] [place] [address], [place] [address] Feb, [facility] [address] [id number] [facility] [place] [address] Feb, [facility] [address] [id number] [address] [place] [address], [place] [address] Feb, [facility] [address] [id number] [facility] [place] [address] Feb, [facility] [address] [id number] [address] [place] [address], [place] [address] Feb, [facility] [address] [id number] [address] [place] [address], [place] [address] Feb, [facility] [address] [id number] [address] [place] [address], [place] [address] Feb, [facility] [address] [id number] [address] [place] [address], [place] [address] Feb, [facility] [address] [id number] [address] [place] [address], [place] [address] Jan, [facility] [address] [id number] [address] [place] [address], [place] [address] Jan, [facility] [address] [id number] [address] [place] [address], [place] [address] Jan, [facility] [address] [id number] [address] [place] [address], [place] [address] Jan, [facility] [address] [id number] [address] [place] [address], [place] [address] Jan, [facility] [address] [id number] [address] [place] [address], [place] [address] Jan, [facility] [address] [id number] [address] [place] [address], [place] [address] Jan, [facility] [address] [id number] [address] [place] [address], [place] [address] Jan, [facility] [address] [id number] [address] [place] [address], [place] [address] Jan, [facility] [address] [id number] [address] [place] [address] Jan, [facility] [address] [id number] [address] [place] [address], [place] [address] Dec, [facility] [address] [id number] [address] [place] [address], [place] [address] Dec, [facility] [address] [id number] [address] [place] [address], [place] [address] Dec, [facility] [address] [id number] [address] [place] [address], [place] [address] Dec, [facility] [address] [id number] [address] [place] [address], [place] [address] Dec, [facility] [address] [id number] [address] [place] [address], [place] [address] Dec, [facility] [address] [id number] [address] [place] [address], [place] [address] Dec, [facility] [address] [id number] [address] [place] [address], [place] [address] Dec, [facility] [address] [id number] [address] [place] [address], [place] [address] Nov, [facility] [address] [id number] [address] [place] [address], [place] [address] Nov, [facility] [address] [id number] [address] [place] [address], [place] [address] Nov, [facility] [address] [id number] [address] [place] [address], [place] [address] Nov, [facility] [address] [id number] [address] [place] [address], [place] [address] Nov, [facility] [address] [id number] [address] [place] [address], [place] [address] Nov, [facility] [address] [id number] [address] [place] [address] [address] Nov, [facility] [address] [id number] [address] [place] [address], [place] [address] Nov, [facility] [address] [id number] [address] [place] [address], [place] [address] Nov, [facility] [address] [id number] [address] [place] [address], [place] [address] Nov, [facility] [address] [id number] [address] [place] [address], [place] [address] Nov, [facility] [address] [id number] [address] [place] [address], [place] [address] Nov, [facility] [address] [id number] [address] [place] [address], [place] [address] Nov, [facility] [address] [id number] [address] [place] [address], [place] [address] Oct, [facility] [address] [id number] [address] [place] [address], [place] [address] 30 Oct, 2013 [facility] [address] [id number] [address] [place] [address], [place] [address] Oct, [facility] [address] [id number] [address] [place] [address], [place] [address] Oct, [facility] [address] [id number] [address] [place] [address], [place] [address] Oct, [facility] [address] [id number] [address] [place] [address], [place] [address] Oct, [facility] [address] [id number] [address] [place] [address], [place] [address] 18 Oct, 2013 [facility] [address] [id number] [address] [place] [address], [place] [address] 18 Oct, 2013 [facility] [address] [id number] [address] [place] [address], [place] [address] Oct, [facility] [address] [id number] [address] [place] [address], [place] [address] Oct, [facility] [address] [id number] [address] [place] [address], [place] [address] Oct, [facility] [address] [id number] [address] [place] [address], [place] [address] Oct, [facility] [address] [id number] [address] [place] [address], [place] [address] Oct, [facility] [address] [id number] [address] [place] [address], [place] [address] Oct, [facility] [address] [id number] [address] [place] [address], [place] [address] Sep, [facility] [address] [id number] [address] [place] [address], [place] [address] Sep, [facility] [address] [id number] [address] [place] [address], [place] [address] Sep, [facility] [address] [id number] [address] [place] [address], [place] [address] Sep, [facility] [address] [id number] [address] [place] [address], [place] [address] Sep, [facility] [address] [id number] [address] [place] [address], [place] [address] Sep, [facility] [address] [id number] [address] [place] [address], [place] [address] Sep, [facility] [address] [id number] [address] [place] [address], [place] [address] Sep, [facility] [address] [id number] [address] [place] [address], [place] [address] Sep, [facility] [address] [id number] [address] [place] [address], [place] [address] Sep, [facility] [address] [id number] [address] [place] [address], [place] [address] Aug, [facility] [address] [id number] [address] [place] [address], [place] [address] Aug, [facility] [address] [id number] [address] [place] [address] Aug, [facility] [address] [id number] [address] [place] [address] Aug, [facility] [address] [id number] [address] [place] [address] Aug, [facility] [address] [id number] [address] [place] [address], [place] [address] Aug, [facility] [address] [id number] [address] [place] [address] Aug, [facility] [address] [id number] [address] [place] [address] Aug, [facility] [address] [id number] [address] [place] [address] Aug, [facility] [address] [id number] [address] [place] [address] Aug, [facility] [address] [id number] [address] [place] [address] 18 Aug, 2013 [facility] [address] [id number] [address] [place] [address] 18 Aug, 2013 [facility] [address] [id number] [address] [place] [address] 18 Aug, 2013 [facility] [address] [id number] [address] [place] [address], [place] [address] 18 Aug, 2013 [facility] [address] [id number] [address] [place] [address] 17 Aug, 2013 [facility] [address] [id number] [address] [place] [address] 14 Aug, 2013 [facility] [address] [id number] [address] [place] [address], [place] [address] 14 Aug, 2013 [facility] [address] [id number] [address] [place] [address], [place] [address] 01 Aug, 2013 [facility] [address] [id number] [address] [place] [address], [place] [address] 20 Jul, 2013 [facility] [address] [id number] [address] [place] [address], [place] [address] 19 Jul, 2013 [facility] [address] [id number] [address] [place] [address], [place] [address] 18 Jul, 2013 [facility] [address] [id number] [address] [place] [address], [place] [address] 11 Jul, 2013 [facility] [address] [id number] [address] [place] [address], [place] [address] Jul, [facility] [address] [id number] [address] [place] [address], [place] [address] Jun, [facility] [address] [id number] [address] [place] [address], [place] [address] Jun, [facility] [address] [id number] [address] [place] [address], [place] [address] Jun, [facility] [address] [id number] [address] [place] [address], [place] [address] 15 Jun, 2013 [facility] [address] [id number] [address] [place] [address], [place] [address] 14 Jun, 2013 [facility] [address] [id number] [address] [place] [address], [place] [address] Jun, [facility] [address] [id number] [address] [place] [address], [place] [address] Jun, [facility] [address] [id number] [address] [place] [address], [place] [address] 08 Jun, 2013 [facility] [address] [id number] [address] [place] [address], [place] [address] Jun, [facility] [address] [id number] [address] [place] [address], [place] [address] Jun, [facility] [address] [id number] [address] [place] [address], [place] [address] May, [facility] [address] [id number] [address] [place] [address], [place] [address] May, [facility] [address] [id number] [address] [place] [address], [place] [address] May, [facility] [address] [id number] [address] [place] [address], [place] [address] May, [facility] [address] [id number] [address] [place] [address], [place] [address] May, [facility] [address] [id number] [address] [place] [address], [place] [address] May, [facility] [address] [id number] [address] [place] [address], [place] [address] May, [facility] [address] [id number] [address] [place] [address], [place] [address] May, [facility] [address] [id number] [address] [place] [address], [place] [address] May, [facility] [address] [id number] [address] [place] [address], [place] [address] Apr, [facility] [address] [id number] [address] [place] [address], [place] [address] Apr, [facility] [address] [id number] [address] [place] [address], [place] [address] Apr, [facility] [address] [id number] [address] [place] [address], [place] [address] Apr, [facility] [address] [id number] [address] [place] [address], [place] [address] Apr, [facility] [address] [id number] [address] [place] [address], [place] [address] 04 Apr, 2013 [facility] [address] [id number] [address] [place] [address], [place] [address] Apr, [facility] [address] [id number] [address] [place] [address], [place] [address] March, [facility] [address] [id number] [address] [place] [address], [place] [address] Feb, [facility] [address] [id number] [address] [place] [address], [place] [address] Feb, [facility] [address] [id number] [address] [place] [address], [place] [address] Feb, [facility] [address] [id number] [address] [place] [address], [place] [address] Jan, [facility] [address] [id number] [address] [place] [address], [place] [address] Jan, [facility] [address] [id number] [address] [place] [address], [place] [address] Jan, [facility] [address] [id number] [address] [place] [address], [place] [address] Jan, [facility] [address] [id number] [address] [place] [address], [place] [address] Jan, [facility] [address] [id number] [address] [place] [address], [place] [address] Jan, [facility] [address] [id number] [address] [place] [address], [place] [address] Jan, [facility] [address] [id number] [address] [place] [address], [place] [address] Jan, [facility] [address] [id number] [address] [place] [address], [place] [address] Dec, [facility] [address] [id number] [address] [place] [address], [place] [address] Dec, [facility] [address] [id number] [address] [place] [address], [place] [address] 13 Dec, 2012 [facility] [address] [id number] [address] [place] [address], [place] [address] 11 Dec, 2012 [facility] [address] [id number] [address] [place] [address], [place] [address] 07 Dec, 2012 [facility] [address] [id number] [address] [place] [address], [place] [address] 06 Dec, 2012 [facility] [address] [id number] [address] [place] [address], [place] [address] 05 Dec, 2012 [facility] [address] [id number] [address] [place] [address], [place] [address] Nov, [facility] [address] [id number] [address] [place] [address], [place] [address] Nov, [facility] [address] [id number] [address] [place] [address], [place] [address] Nov, [facility] [address] [id number] [address] [place] [address], [place] [address] Nov, [facility] [address] [id number] [address] [place] [address], [place] [address] Nov, [facility] [address] [id number] [address] [place] [address], [place] [address] Nov, [facility] [address] [id number] [address] [place] [address], [place] [address] Nov, [facility] [address] [id number] [address] [place] [address], [place] [address] Oct, [facility] [address] [id number] [address] [place] [address], [place] [address] Oct, [facility] [address] [id number] [address] [place] [address], [place] [address] Oct, [facility] [address] [id number] [address] [place] [address], [place] [address] Oct, [facility] [address] [id number] [address] [place] [address], [place] [address] Oct, [facility] [address] [id number] [address] [place] [address], [place] [address] Oct, [facility] [address] [id number] [address] [place] [address], [place] [address] Oct, [facility] [address] [id number] [address] [place] [address], [place] [address] Oct, [facility] [address] [id number] [address] [place] [address], [place] [address] Oct, [facility] [address] [id number] [address] [place] [address], [place] [address] Oct, [facility] [address] [id number] [address] [place] [address], [place] [address] Oct, [facility] [address] [id number] [address] [place] [address], [place] [address] Oct, [facility] [address] [id number] [address] [place] [address], [place] [address] Sep, [facility] [address] [id number] [address] [place] [address], [place] [address] Sep, [facility] [address] [id number] [address] [place] [address], [place] [address] Sep, [facility] [address] [id number] [address] [place] [address], [place] [address] Sep, [facility] [address] [id number] [address] [place] [address], [place] [address] Sep, [facility] [address] [id number] [address] [place] [address], [place] [address] Sep, [facility] [address] [id number] [address] [place] [address], [place] [address] Sep, [facility] [address] [id number] [address] [place] [address], [place] [address] Sep, [facility] [address] [id number] [address] [place] [address], [place] [address] Sep, [facility] [address] [id number] [address] [place] [address], [place] [address] Sep, [facility] [address] [id number] [address] [place] [address], [place] [address] Sep, [facility] [address] [id number] [address] [place] [address], [place] [address] Aug, [facility] [address] [id number] [address] [place] [address], [place] [address] Aug, [facility] [address] [id number] [address] [place] [address], [place] [address] Aug, [facility] [address] [id number] [address] [place] [address], [place] [address] Aug, [facility] [address] [id number] [address] [place] [address], [place] [address] Aug, [facility] [address] [id number] [address] [place] [address], [place] [address] Aug, [facility] [address] [id number] [address] [place] [address], [place] [address] Aug, [facility] [address] [id number] [address] [place] [address], [place] [address] Aug, [facility] [address] [id number] [address] [place] [address], [place] [address] Aug, [facility] [address] [id number] [address] [place] [address], [place] [address] Aug, [facility] [address] [id number] [address] [place] [address], [place] [address] 22 Jul, 2012 [facility] [address] [id number] [address] [place] [address], [place] [address] Jul, [facility] [address] [id number] [facility] [address] Jul, [facility] [address] [id number] [address] [place] [address], [place] [address] Jul, [facility] [address] [id number] [address] [place] [address], [place] [address] Jun, [facility] [address] [id number] [address] [place] [address], [place] [address] Jun, [facility] [address] [id number] [address] [place] [address], [place] [address] Jun, [facility] [address] [id number] [address] [place] [address], [place] [address] Jun, [facility] [address] [id number] [address] [place] [address], [place] [address] Jun, [facility] [address] [id number] [address] [place] [address], [place] [address] Jun, [facility] [address] [id number] [address] [place] [address], [place] [address] Jun, [facility] [address] [id number] [address] [place] [address], [place] [address] May, [facility] [address] [id number] [address] [place] [address], [place] [address] May, [facility] [address] [id number] [address] [place] [address], [place] [address] May, [facility] [address] [id number] [address] [place] [address], [place] [address] May, [facility] [address] [id number] [address] [place] [address], [place] [address] May, [facility] [address] [id number] [address] [place] [address], [place] [address] Apr, [facility] [address] [id number] [address] [place] [address], [place] [address] 18 Apr, 2012 [facility] [address] [id number] [address] [place] [address], [place] [address] Apr, [facility] [address] [id number] [address] [place] [address], [place] [address] Apr, [facility] [address] [id number] [address] [place] [address], [place] [address] Apr, [facility] [address] [id number] [address] [place] [address], [place] [address] March, [facility] [address] [id number] [address] [place] [address], [place] [id number] March, [facility] [address] [id number] [address] [place] [address], [place] [address] March, [facility] [address] [id number] [address] [place] [address], [place] [id number] March, [facility] [address] [id number] [address] [place] [address], [place] [address] March, [facility] [address] [id number] [address] [place] [address], [place] [address] March, [facility] [address] [id number] [address] [place] [address], [place] [id number] March, [facility] [address] [id number] [address] [place] [address], [place] [address] March, [facility] [address] [id number] [address] [place] [address], [place] [address] March, [facility] [address] [id number] [address] [place] [address], [place] [address] March, [facility] [address] [id number] [address] [place] [address], [place] [address] Feb, [facility] [address] [id number] [address] [place] [address], [place] [address] Feb, [facility] [address] [id number] [address] [place] [address], [place] [address] Feb, [facility] [address] [id number] [address] [place] [address], [place] [id number] Feb, [facility] [address] [id number] [address] [place] [address], [place] [address] Feb, [facility] [address] [id number] [address] [place] [address], [place] [address] Feb, [facility] [address] [id number] [address] [place] [address], [place] [id number] Feb, [facility] [address] [id number] [address] [place] [address], [place] [address] Feb, [facility] [address] [id number] [address] [place] [address], [place] [id number] Feb, [facility] [address] [id number] [address] [place] [address], [place] [address] Jan, [facility] [address] [id number] [address] [place] [address], [place] [address] Jan, [facility] [address] [id number] [address] [place] [address], [place] [id number] 05 Jan, [address] [facility] [address] [id number] [address] [place] [address], [place] [address] Jan, [facility] [address] [id number] [address] [place] [address], [place] [address] Dec, [facility] [address] [id number] [address] [place] [address], [place] [address] Dec, [facility] [address] [id number] [address] [place] [address], [place] [address] Nov, [facility] [address] [id number] [address] [place] [address], [place] [address] Nov, [facility] [address] [id number] [address] [place] [phone] Nov, [facility] [address] [id number] [address] [place] [id number] Nov, [facility] [address] [id number] [address] [place] [phone] Nov, [facility] [address] [id number] [address] [place] [phone] Oct, [facility] [address] [id number] [address] [place] [id number] Oct, [facility] [address] [id number] [address] [place] [phone] Oct, [facility] [address] [id number] [address] [place] [phone] Oct, [facility] [address] [id number] [address] [place] [phone] Oct, [facility] [address] [id number] [address] [place] [id number] Oct, [facility] [address] [id number] [address] [place] [phone] Oct, [facility] [address] [id number] [address] [place] [phone] Oct, [facility] [address] [id number] [address] [place] [id number] Sep, IMMUNIZATIONS No Known Immunizations SOCIAL HISTORY [...] fever, discharged 11/27/2017 11/26/2017 Hospitalization History [facility]- Went Unrepsonsive, Hit head 2017 Hospitalization History [facility]- Back Pain 8
--- OUTSIDE RECORDS SUMMARY | 2020-06-18 15:40 | XMS REPORT ---
Author Author Sanjuanita Abdul Doctor Organization [facility] Address Unknown Phone Unavailable Care Team Providers Care Processing Manager Name Role Phone Migration, Doctor Unavailable Unavailable PROBLEMS Type Condition ICD9-CM Code UTH10-EV Code Onset Dates Condition S tatus SNOMED Code Problem Hypertension I10 Active 8937600 3 Problem Hyperlipidemia E78.5 Active 37032 004 Problem Coronary artery disease I25.10 Active 61172374 Problem Low back pain M54.5 Active 232366 009 Problem Other chronic pain G89.29 Active 8 6250468 Problem Ventral hernia without obstruction or gangrene K43 .9 Active 351259302 Problem Type 2 diabetes mellitus wit hout complication, without long-term current use of insulin E11.9 Active 028189128 Problem Anxiety F41.9 Active 38550629 Problem Peripheral vascular disease I73.9 Ac tive 306393468 Problem Insomnia G47.00 Active 467227422 Problem Microcytic anemia D50.9 Active 23 2754754 Problem Pharyngeal dysphagia R13.13 Active 42724807532182 Problem Other iron deficiency anemia D50.8 A ctive 72712880 Problem Reactive depression F32.9 Active 64208939 Problem Paroxysmal atrial fibrillation I48.0 Active 531233105 Problem Postmenopausal atrophic vaginitis N95.2 Active 17731094 Problem Encounter for suprapubic catheter care Z43.5 Active 896335655 Problem Neurogenic bladder N31.9 Active 3 [id number] ALLERGIES No Information ENCOUNTERS Encounter Location Date Diagnosis [place] [address] [facility] [id number] [address] [place] [phone] 17 Apr, 2020 Anxiety F41.9 and Strain of right shoulder, subsequent encounter S46.911D [place] [address] [id number] [address] [place] [id number] 04 Apr, 2020 [facility] [address] [facility] [id number] [address] [place] [id number] March, [facility] [address] [id number] [address] [place] [address] March, Anxiety F41.9 and Strain of right shoulder, subsequent encounter S46.911D [facility] [address] [id number] [address] [place], [place] [phone] Feb, Anxiety F41.9 and Strain of right shoulder, subsequent encounter S46.911D [facility] [address] [id number] [address] [place] [address] Jan, Anxiety F41.9 and Strain of right shoulder, subsequent encounter S46.911D [facility] [address] [id number] [address] [place] [phone] Jan, Via [facility] [employer] [address] [place] [id number] Jan, Neurogenic bladder N31.9 [facility] [address] [id number] [address] [place] [phone] Dec, [facility] [address] [id number] [address] [place] [phone] Dec, [facility] [address] [id number] [address] [place] [id number] Dec, Anxiety F41.9 and Strain of right shoulder, subsequent encounter S46.911D [facility] [address] [id number] [address] [place] [phone] 10 Dec, 2019 Other iron deficiency anemia D50.8 [facility] [address] [id number] [address] [place] [phone] Dec, Via [employer] [address] [place] [id number] Dec, Encounter for suprapubic catheter care Z 43.5 and Microcytic anemia D50.9 [facility] [address] [id number] [address] [place] [address] Dec, [facility] [address] [id number] [address] [place] [address] Nov, Anxiety F41.9 and Strain of right shoulder, subsequent encounter S46.911D [facility] [address] [id number] [address] [place] [id number] Nov, Hypertension I10 Via [facility] [employer] [address] [place] [id number] Nov, Pneumonia of both lungs due to infectiou s organism, unspecified part of lung J18.9 and Suprapubic catheter Z93.59 [place] [address] [id number] [address] [place] [phone] Nov, Hypertension I10 and Reactiv e depression F32.9 [place] [address] [id number] [address] [place] [address] Oct, Strain of right shoulder, scherer bsequent encounter S46.911D and Anxiety F41.9 [place] [address] [id number] [address] [place] [address] Oct, Via [employer] [address] [place] [id number] Oct, Suprapubic catheter Z93.59 and Candidias is, intertriginous B37.2 [facility] [address] [id number] [address] [place] [phone] Oct, Suprapubic catheter Z93.59 [facility] [address] [id number] [address] [place] [phone] Oct, Anxiety F41.9 and Strain of right shoulder, subsequent encounter S46.911D [facility] [address] [id number] [address] [place] [phone] Sep, [place] [address] [id number] [address] [place] [phone] Sep, [place] [address] [id number] [address] [place] [phone] Sep, Via [employer] [address] [place] [id number] Sep, Suprapubic catheter Z93.59 [facility] [address] [id number] [address] [place] [address] Sep, Anxiety F41.9 and Strain of right shoulder, subsequent encounter S46.911D [facility] [address] [id number] [address] [place] [phone] Aug, [facility] [address] [id number] [address] [place] [address] Aug, [facility] [address] [id number] [address] [place] [address] Aug, Anxiety F41.9 and Strain of right shoulder, subsequent encounter S46.911D [facility] [address] [place] [facility] [place] [id number] Aug, Suprapubic catheter Z93.59 [facility] [address] [id number] [address] [place] [address] Jul, Strain of right shoulder, scherer bsequent encounter S46.911D and Anxiety F41.9 [facility] [address] [id number] [address] [place] [address] Jul, Anxiety F41.9 [facility] [address] [id number] [address] [place] [phone] Jun, [facility] [address] [id number] [address] [place] [phone] Jun, [facility] [address] [id number] [address] [place] [phone] Jun, [facility] [address] [id number] [address] [place] [phone] Jun, Strain of right shoulder, scherer bsequent encounter S46.911D [facility] [address] [id number] [address] [place] [address] Jun, Strain of right shoulder, scherer bsequent encounter S46.911D [place] [address] [id number] [address] [place] [address] Jun, Anxiety F41.[address] [facility] [address] [place] [id number] Jun, Neurogenic bladder N31.9 and Anxiety F41 [address] [facility] [address] [place] [id number] May, Anxiety F41.9 [place] [address] [id number] [address] [place] [phone] May, Dysuria R30.0 [place] [address] [id number] [address] [place] [id number] May, Strain of right shoulder, scherer bsequent encounter S46.911D and Anxiety F41.9 [place] [address] [id number] [address] [place] [phone] Apr, Via [facility] [address] [place] [id number] Apr, Strain of right shoulder, subsequent enc ounter S46.911D [place] [address] [id number] [address] [place] [address] 14 Apr, 2019 Strain of right shoulder, scherer bsequent encounter S46.911D and Anxiety F41.[address] [facility] [address] [place] [id number] 13 Apr, 2019 Type 2 diabetes mellitus without complic ation, without long-term current use of insulin E11.9 and Neurogenic bladder N31.[address] 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 [address] [place] [id number] March, Gastrointestinal hemorrhage associated w ith acute gastritis K29.01 [facility] [address] [id number] [address] [place] [phone] March, Via [employer] [address] [place] [id number] March, Bronchitis J40 [facility] [address] [id number] [address] [place] [phone] March, Cough R05 [facility] [address] [id number] [address] [place] [address] March, Other chronic pain G89.29 [facility] [address] [id number] [address] [place] [phone] March, Anxiety F41.9 [facility] [address] [id number] [address] [place] [phone] March, [facility] [address] [id number] [address] [place] [address] Feb, Other chronic pain G89.29 [facility] [address] [id number] [address] [place] [phone] Feb, Anxiety F41.9 [facility] [address] [id number] [address] [place] [id number] Feb, Other chronic pain G89.29 [facility] [employer] [address] [place] [id number] Feb, Neurogenic bladder N31.9 and Suprapubic catheter Z93.59 [facility] [address] [id number] [address] [place] [id number] Jan, Anxiety F41.9 [facility] [address] [id number] [address] [place] [phone] Dec, Anxiety F41.9 [facility] [address] [id number] [address] [place] [phone] Dec, Other chronic pain G89.29 an d Anxiety F41.9 [facility] [address] [id number] [address] [place] [phone] Dec, Via [employer] [address] [place] [id number] Dec, Neurogenic bladder N31.9 and Suprapubic catheter Z93.59 [facility] [address] [id number] [address] [place] [address] Nov, Other chronic pain G89.29 an d Anxiety F41.9 [facility] [address] [id number] [address] [place] [address] Nov, Via [employer] [address] [place] [id number] Nov, Suprapubic catheter Z93.59 [facility] [address] [id number] [address] [place] [phone] Oct, Other chronic pain G89.29 an d Anxiety F41.9 [facility] [address] [id number] [address] [place] [address] Oct, [facility] [address] [id number] [address] [place] [phone] Oct, Suprapubic catheter Z93.59 [facility] [address] [id number] [address] [place] [phone] Oct, Via [employer] [address] [place] [id number] Oct, [facility] [address] [id number] [address] [place] [phone] Oct, Anxiety F41.9 [facility] [address] [id number] [address] [place] [phone] Oct, Anxiety F41.9 Via [employer] [address] [place] [id number] Oct, Other chronic pain G89.29 [facility] [address] [id number] [address] [place] [id number] Sep, Other chronic pain G89.29 Via [employer] [address] [place] [id number] Sep, Suprapubic catheter Z93.59 and Cervicalg ia M54.2 [facility] [address] [id number] [address] [place] [phone] Sep, [facility] [address] [id number] [address] [place] [phone] Sep, [facility] [address] [id number] [address] [place] [phone] Sep, Via [employer] [address] [place] [id number] Aug, Cystitis N30.90 [facility] [address] [id number] [address] [place] [phone] Aug, [facility] [address] [id number] [address] [place] [phone] Aug, Other chronic pain G89.29 [facility] [address] [id number] [address] [place] [address] Aug, Via [employer] [address] [place] [id number] Aug, Encounter for suprapubic catheter care Z 43.5 [facility] [address] [id number] [address] [place] [phone] Jul, Via [employer] [address] [place] [id number] Jul, [facility] [address] [id number] [address] [place] [phone] Jul, Other chronic pain G89.29 [facility] [address] [id number] [address] [place] [phone] Jul, [facility] [address] [id number] [address] [place] [phone] Jul, Via [facility] [employer] [address] [place] [id number] Jun, Postmenopausal atrophic vaginitis N95.2 [facility] [address] [id number] [address] [place] [phone] Jun, Other chronic pain G89.29 [facility] [address] [id number] [address] [place] [address] Jun, Via [employer] [address] [place] [id number] May, Anxiety F41.9 ; Type 2 diabetes mellitus without complication, without long-term current use of insulin E11.9 ; Hypertension I10 ; Low back pain M54.5 ; Paroxysmal atrial fibrillation I48.0 and 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 [facility] [address] [id number] [address] [place] [address] May, Other chronic pain G89.29 Via [employer] [address] [place] [id number] May, Low back pain M54.5 [facility] [address] [id number] [address] [place] [address] May, [facility] [address] [id number] [address] [place] [address] Apr, Other chronic pain G89.29 [facility] [address] [id number] [address] [place] [phone] Apr, [facility] [address] [id number] [address] [place] [address] Apr, Via [employer] [address] [place] [id number] Apr, Closed compression fracture of L3 lumbar vertebra with routine healing, subsequent encounter S32.030D [facility] [employer] [address] [place] [id number] 14 Apr, 2018 Low back pain M54.5 Via [employer] [address] [place] [id number] 12 Apr, 2018 Coccydynia M53.3 [facility] [address] [id number] [address] [place] [address] March, [facility] [address] [id number] [address] [place] [address] March, Other chronic pain G89.29 [facility] [address] [id number] [address] [place] [id number] March, [facility] [address] [id number] [address] [place] [phone] March, [facility] [address] [id number] [address] [place] [address] Feb, [facility] [address] [id number] [address] [place] [address] Feb, Other chronic pain G89.29 Via [employer] [address] [place] [id number] Feb, Other chronic pain G89.29 and Anxiety F4 1.9 [facility] [address] [id number] [address] [place] [phone] Feb, [facility] [address] [id number] [address] [place] [phone] Jan, [facility] [address] [id number] [address] [place] [phone] Jan, [facility] [address] [id number] [address] [place] [phone] Jan, [facility] [address] [id number] [address] [place] [phone] Jan, [facility] [address] [facility] [id number] [address] [place] [address] Dec, Via [employer] [address] [place] [id number] Dec, Peripheral vascular disease I73.9 ; 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 ; Other chronic pain G89.29 ; Anxiety F41.9 ; Reactive depression F32.9 ; Insomnia G47.00 and Type 2 diabetes mellitus without complication, without long-term current use of insulin E11.[address] [id number] [address] Nov, [facility] [place] [address] [id number] [place] [id number] Nov, Anxiety F41.9 [facility] [address] [facility] [id number] [address] [place] [phone] Nov, [facility] [place] [address] [id number] [place] [id number] Nov, Anxiety F41.9 Via [employer] [address] [place] [id number] Nov, Status post surgery Z98.890 ; Confused R 41.0 ; Anxiety F41.9 and Other chronic pain G89.29 [facility] [place] [address] [id number] [place] [id number] Nov, Other chronic pain G89.29 [facility] [address] [facility] [id number] [address] [place] [phone] Oct, [facility] [place] [address] [id number] [place] [id number] Oct, Other chronic pain G89.29 [facility] [address] [facility] [id number] [address] [place] [phone] Oct, Anxiety F41.9 [facility] [place] [address] [id number] [place] [id number] Sep, Other chronic pain G89.29 [facility] [place] [address] [id number] [place] [id number] Sep, Via [employer] [address] [place] [id number] Aug, Dysuria R30.0 and Anxiety F41.9 [facility] [address] [id number] [address] [place] [phone] Aug, [facility] [place] [address] [id number] [place] [id number] Aug, Other chronic pain G89.29 [facility] [address] [id number] [address] [place] [phone] Jul, Other chronic pain G89.29 [facility] [place] [address] [id number] [place] [id number] Jun, [facility] [place] [address] [id number] [place] [id number] Jun, Other chronic pain G89.29 [facility] [address] [id number] [address] [place] [phone] Jun, [facility] [address] [id number] [address] [place] [address] May, Other chronic pain G89.29 [facility] [address] [id number] [address] [place] [phone] Apr, Other chronic pain G89.29 Via [employer] [address] [place] [id number] Apr, Reactive depression F32.9 and Pharyngeal dysphagia R13.13 [facility] [address] [id number] [address] [place] [phone] Apr, Urinary tract infection with out hematuria, site unspecified N39.0 [facility] [address] [id number] [address] [place] [phone] March, Other chronic pain G89.29 [facility] [address] [id number] [address] [place] [phone] Feb, Other chronic pain G89.29 [facility] [address] [id number] [address] [place] [phone] Feb, [facility] [place] [address] [id number] [facility] [place] [place] [id number] Feb, [facility] [employer] N(i)² [employer] [address] [place] [id number] Feb, Dysuria R30.0 and Ventral hernia without obstruction or gangrene K43.9 [facility] [address] [id number] [address] [place] [phone] Jan, Other chronic pain G89.29 [facility] [place] [address] [id number] [place] [id number] Dec, Other chronic pain G89.29 [facility] [address] [facility] [id number] [address] [place] [phone] Nov, Other chronic pain G89.29 [employer] [address] [place] [id number] Nov, Lymphadenitis I88.9 [facility] [address] [facility] [id number] [address] [place] [phone] Nov, Other chronic pain G89.29 [facility] [address] [facility] [id number] [address] [place] [phone] Nov, [facility] [place] [address] [id number] [place] [id number] Nov, Other chronic pain G89.29 [facility] [employer] [address] [place] [id number] Oct, Low back pain M54.5 ; Hypertension I10 a nd Type 2 diabetes mellitus without complication, without long-term current use of insulin E11.9 [facility] [address] [facility] [id number] [address] [place] [phone] Oct, [facility] [address] [id number] [address] [place] [phone] Oct, [facility] [address] [id number] [address] [place] [phone] Oct, [facility] [address] [id number] [address] [place] [phone] Oct, [facility] [address] [id number] [address] [place] [phone] Sep, [facility] [address] [id number] [address] [place] [phone] Sep, [facility] [address] [id number] [address] [place] [phone] Aug, Other chronic pain G89.29 [facility] [address] [id number] [address] [place] [phone] Jul, [facility] [address] [id number] [address] [place] [phone] Jul, [facility] [address] [id number] [address] [place] [phone] Jul, [facility] [address] [id number] [address] [place] [phone] Jun, [facility] [address] [id number] [address] [place] [address] Jun, Via [facility] [address] [place] [id number] Jun, Low back pain M54.5 ; Other chronic pain G89.29 and Coronary artery disease I25.10 [facility] [address] [id number] [address] [place] [address] Jun, [facility] [address] [id number] [address] [place] [address] May, [facility] [address] [id number] [address] [place] [address] May, [facility] [address] [id number] [address] [place] [address] 13 May, 2016 Other chronic pain G89.29 [facility] [address] [id number] [address] [place] [address] 13 May, 2016 [facility] [address] [id number] [address] [place] [address] 28 Apr, 2016 [facility] [address] [id number] [address] [place] [address] 17 Apr, 2016 Acute cystitis without hemat uria N30.00 [facility] [address] [id number] [address] [place] [address] 16 Apr, 2016 Acute cystitis without hemat uria N30.00 ; Coronary artery disease I25.10 ; Low back pain M54.5 and Other chronic pain G89.29 [facility] [address] [id number] [address] [place] [address] 13 Apr, 2016 Other chronic pain G89.29 [facility] [address] [id number] [address] [place] [address] March, Other chronic pain G89.29 [facility] [address] [id number] [address] [place] [address] 18 Feb, 2016 [facility] [address] [id number] [address] [place] [address] 15 Feb, 2016 Arthritis M19.90 [facility] [address] [id number] [address] [place] [address] Feb, [facility] [address] [id number] [address] [place] [address] 30 Jan, 2016 [facility] [address] [id number] [address] [place] [address] Jan, [facility] [address] [id number] [address] [place] [address] Jan, Other chronic pain G89.29 [facility] [address] [id number] [address] [place] [address] Jan, Hypertension I10 ; Coronary artery disease I25.10 and Insomnia G47.00 [facility] [address] [id number] [address] [place] [address] Jan, [facility] [address] [id number] [address] [place] [address] Dec, Right hip pain M25.551 [facility] [address] [id number] [address] [place] [address] Dec, [facility] [address] [id number] [address] [place] [address] Dec, [facility] [address] [id number] [address] [place] [address] Dec, [facility] [address] [id number] [address] [place] [address] Dec, Other chronic pain G89.29 [facility] [address] [id number] [address] [place] [address] Dec, [facility] [address] [id number] [address] [place] [address] Nov, [facility] [address] [id number] [address] [place] [address] Nov, Other chronic pain G89.29 [facility] [address] [id number] [address] [place] [address] Nov, Right hip pain M25.551 and C oronary artery disease I25.10 [facility] [address] [id number] [address] [place] [address] Nov, Other chronic pain G89.29 [facility] [address] [id number] [address] [place] [address] Oct, [facility] [address] [facility] [id number] [address] [place] [address] Oct, [facility] [address] [id number] [address] [place] [address] Sep, [facility] [address] [id number] [address] [place] [address] Sep, [facility] [address] [id number] [address] [place] [address] Aug, [facility] [address] [id number] [address] [place] [address] Aug, Hypertension I10 ; Coronary artery disease I25.10 and Arthritis M19.90 [facility] [address] [id number] [address] [place] [address] Jun, [facility] [address] [facility] [id number] [address] [place] [address] Jun, Essential hypertension, jayson gn 401.1 ; Other chronic pain 338.29 and Chronic airway obstruction, not elsewhere classified 496 [facility] [address] [id number] [address] [place] [address] Jun, [facility] [address] [id number] [address] [place] [address] Jun, [facility] [address] [facility] [id number] [address] [place] [phone] Jun, [facility] [address] [id number] [address] [place] [phone] May, [facility] [address] [id number] [address] [place] [address] May, [facility] [address] [id number] [address] [place] [phone] Apr, [facility] [address] [id number] [address] [place] [address] Apr, [facility] [address] [id number] [address] [place] [address] Apr, [facility] [address] [id number] [address] [place] [address], [place] [address] March, [facility] [address] [id number] [address] [place] [address], [place] [address] March, [facility] [address] [id number] [address] [place] [address], [place] [address] March, [facility] [address] [id number] [address] [place] [address], [place] [address] March, [facility] [address] [id number] [address] [place] [address], [place] [address] March, Sialadenitis 527.2 [facility] [address] [id number] [address] [place] [address], [place] [address] Feb, [facility] [address] [id number] [address] [place] [address], [place] [address] Feb, [facility] [address] [id number] [address] [place] [address], [place] [address] Feb, [facility] [address] [id number] [address] [place] [address], [place] [address] Feb, [facility] [address] [id number] [address] [place] [address], [place] [address] Feb, [facility] [address] [id number] [address] [place] [address], [place] [address] Jan, [facility] [address] [id number] [address] [place] [phone] Jan, [facility] [address] [id number] [address] [place] [address], [place] [address] Jan, [facility] [address] [id number] [address] [place] [address], [place] [address] Jan, [facility] [address] [id number] [address] [place] [address], [place] [address] Jan, [facility] [address] [id number] [address] [place] [address] Jan, [facility] [address] [id number] [address] [place] [address], [place] [address] Dec, [facility] [address] [id number] [address] [place] [address], [place] [address] Dec, [facility] [address] [id number] [address] [place] [address], [place] [address] Dec, [facility] [address] [id number] [address] [place] [address], [place] [address] Dec, [facility] [address] [id number] [address] [place] [address], [place] [address] Dec, [facility] [address] [id number] [address] [place] [address], [place] [address] Dec, [facility] [address] [id number] [address] [place] [address], [place] [address] Nov, [facility] [address] [id number] [address] [place] [address], [place] [address] Nov, [facility] [address] [id number] [address] [place] [address], [place] [address] Nov, [facility] [address] [id number] [address] [place] [address], [place] [address] Nov, [facility] [address] [id number] [address] [place] [address], [place] [address] Nov, [facility] [address] [id number] [address] [place] [address], [place] [address] Nov, [facility] [address] [id number] [address] [place] [address], [place] [address] Nov, [facility] [address] [id number] [address] [place] [address], [place] [address] Nov, [facility] [address] [id number] [address] [place] [address], [place] [address] Nov, [facility] [address] [id number] [address] [place] [address], [place] [address] Nov, [facility] [address] [id number] [address] [place] [address], [place] [address] Nov, [facility] [address] [id number] [address] [place] [address], [place] [address] Nov, [facility] [address] [id number] [address] [place] [address], [place] [address] Nov, [facility] [address] [id number] [address] [place] [address], [place] [address] Nov, [facility] [address] [id number] [address] [place] [address], [place] [address] Oct, [facility] [address] [id number] [address] [place] [address], [place] [address] Oct, [facility] [address] [id number] [address] [place] [address], [place] [address] Oct, [facility] [address] [id number] [address] [place] [address], [place] [address] Oct, [facility] [address] [id number] [address] [place] [address], [place] [address] Oct, [facility] [address] [id number] [address] [place] [address], [place] [address] 17 Oct, 2014 [facility] [address] [id number] [address] [place] [address], [place] [address] 17 Oct, 2014 [facility] [address] [id number] [address] [place] [address], [place] [address] Oct, [facility] [address] [id number] [address] [place] [address], [place] [address] Oct, [facility] [address] [id number] [address] [place] [address], [place] [address] Sep, [facility] [address] [id number] [address] [place] [address], [place] [address] Sep, [facility] [address] [id number] [address] [place] [address], [place] [address] Sep, [facility] [address] [id number] [address] [place] [address], [place] [address] Sep, [facility] [address] [id number] [address] [place] [address], [place] [address] Sep, [facility] [address] [id number] [address] [place] [address], [place] [address] Sep, [facility] [address] [id number] [address] [place] [address], [place] [address] Sep, [facility] [address] [id number] [address] [place] [address], [place] [address] Sep, [facility] [address] [id number] [address] [place] [address], [place] [address] Sep, [facility] [address] [id number] [address] [place] [address], [place] [address] Sep, [facility] [address] [id number] [address] [place] [address], [place] [address] Sep, [facility] [address] [id number] [address] [place] [address], [place] [address] Sep, [facility] [address] [id number] [address] [place] [address], [place] [address] Aug, [facility] [address] [id number] [address] [place] [address], [place] [address] Aug, [facility] [address] [id number] [address] [place] [address], [place] [address] Aug, [facility] [address] [id number] [address] [place] [address], [place] [address] Aug, [facility] [address] [id number] [address] [place] [address], [place] [address] Aug, [facility] [address] [id number] [address] [place] [address], [place] [address] 28 Aug, 2014 [facility] [address] [id number] [address] [place] [address], [place] [address] Aug, [facility] [address] [id number] [address] [place] [address], [place] [address] 17 Aug, 2014 [facility] [address] [id number] [address] [place] [address], [place] [address] 30 Jul, 2013 [facility] [address] [id number] [address] [place] [address], [place] [address] 30 Jul, 2013 [facility] [address] [id number] [address] [place] [address], [place] [address] 30 Jul, 2013 [facility] [address] [id number] [address] [place] [address], [place] [address] 30 Jul, 2013 [facility] [address] [id number] [address] [place] [address], [place] [address] 25 Jul, 2013 [facility] [address] [id number] [address] [place] [address], [place] [address] 25 Jul, 2013 [facility] [address] [id number] [address] [place] [address], [place] [address] 15 Jul, 2014 [facility] [address] [id number] [address] [place] [address], [place] [address] 15 Jul, 2014 [facility] [address] [id number] [address] [place] [address], [place] [address] 11 Jul, 2014 [facility] [address] [id number] [address] [place] [address], [place] [address] Jul, [facility] [address] [id number] [address] [place] [address], [place] [address] Jun, [facility] [address] [id number] [address] [place] [address], [place] [address] Jun, [facility] [address] [id number] [address] [place] [address], [place] [address] Jun, [facility] [address] [id number] [facility] [address] Jun, [facility] [address] [id number] [address] [place] [address], [place] [address] Jun, [facility] [address] [id number] [address] [place] [address], [place] [address] Jun, [facility] [address] [id number] [address] [place] [address], [place] [address] Jun, [facility] [address] [id number] [address] [place] [address], [place] [address] Jun, [facility] [address] [id number] [address] [place] [address], [place] [address] Jun, [facility] [address] [id number] [address] [place] [address], [place] [address] Jun, [facility] [address] [id number] [address] [place] [address], [place] [address] Jun, [facility] [address] [id number] [address] [place] [address], [place] [address] Jun, [facility] [address] [id number] [address] [place] [address], [place] [address] Jun, [facility] [address] [id number] [address] [place] [address], [place] [address] Jun, [facility] [address] [id number] [address] [place] [address], [place] [address] Jun, [facility] [address] [id number] [address] [place] [address], [place] [address] Jun, [facility] [address] [id number] [address] [place] [address], [place] [address] Jun, [facility] [address] [id number] [address] [place] [address], [place] [address] Jun, [facility] [address] [id number] [address] [place] [address], [place] [address] Jun, [facility] [address] [id number] [facility] [address] Jun, [facility] [address] [id number] [address] [place] [address], [place] [address] Jun, [facility] [address] [id number] [address] [place] [address], [place] [address] Jun, [facility] [address] [id number] [address] [place] [address], [place] [address] May, [facility] [address] [id number] [address] [place] [address], [place] [address] May, [facility] [address] [id number] [address] [place] [address], [place] [address] May, [facility] [address] [id number] [address] [place] [address], [place] [address] May, [facility] [address] [id number] [address] [place] [address], [place] [address] May, [facility] [address] [id number] [address] [place] [address], [place] [address] May, [facility] [address] [id number] [address] [place] [address], [place] [address] May, [facility] [address] [id number] [address] [place] [address], [place] [address] May, [facility] [address] [id number] [address] [place] [address], [place] [address] May, [facility] [address] [id number] [address] [place] [address], [place] [address] May, [facility] [address] [id number] [address] [place] [address], [place] [address] May, [facility] [address] [id number] [address] [place] [address], [place] [address] May, [facility] [address] [id number] [facility] [place] [address] May, [facility] [address] [id number] [facility] [address] Apr, [facility] [address] [id number] [facility] [address] Apr, [facility] [address] [id number] [facility] [address] Apr, [facility] [address] [id number] [facility] [address] Apr, [facility] [address] [id number] [facility] [address] Apr, [facility] [address] [id number] [address] [place] [address], [place] [address] Apr, [facility] [address] [id number] [address] [place] [address], [place] [address] Apr, [facility] [address] [id number] [address] [place] [address], [place] [address] Apr, [facility] [address] [id number] [address] [place] [address], [place] [address] Apr, [facility] [address] [id number] [address] [place] [address], [place] [address] March, [facility] [address] [id number] [address] [place] [address], [place] [address] March, [facility] [address] [id number] [address] [place] [address], [place] [address] March, [facility] [address] [id number] [address] [place] [address], [place] [address] March, [facility] [address] [id number] [address] [place] [address], [place] [address] March, [facility] [address] [id number] [address] [place] [address], [place] [address] March, [facility] [address] [id number] [facility] [address] March, [facility] [address] [id number] [address] [place] [address], [place] [address] March, [facility] [address] [id number] [address] [place] [address], [place] [address] March, [facility] [address] [id number] [address] [place] [address], [place] [address] March, [facility] [address] [id number] [address] [place] [address], [place] [address] March, [facility] [address] [id number] [address] [place] [address], [place] [address] March, [facility] [address] [id number] [address] [place] [address], [place] [address] March, [facility] [address] [id number] [address] [place] [address], [place] [address] March, [facility] [address] [id number] [address] [place] [address], [place] [address] March, [facility] [address] [id number] [address] [place] [address], [place] [address] March, [facility] [address] [id number] [address] [place] [address], [place] [address] March, [facility] [address] [id number] [address] [place] [address], [place] [address] March, [facility] [address] [id number] [address] [place] [address], [place] [address] March, [facility] [address] [id number] [address] [place] [address], [place] [address] March, [facility] [address] [id number] [address] [place] [address], [place] [address] Feb, [facility] [address] [id number] [facility] [address] Feb, [facility] [address] [id number] [address] [place] [address], [place] [address] Feb, [facility] [address] [id number] [facility] [address] Feb, [facility] [address] [id number] [address] [place] [address], [place] [address] Feb, [facility] [address] [id number] [address] [place] [address], [place] [address] Feb, [facility] [address] [id number] [address] [place] [address], [place] [address] Feb, [facility] [address] [id number] [address] [place] [address], [place] [address] Feb, [facility] [address] [id number] [address] [place] [address], [place] [address] Jan, [facility] [address] [id number] [address] [place] [address], [place] [address] Jan, [facility] [address] [id number] [address] [place] [address], [place] [address] Jan, [facility] [address] [id number] [address] [place] [address], [place] [address] Jan, [facility] [address] [id number] [address] [place] [address], [place] [address] Jan, [facility] [address] [id number] [address] [place] [address], [place] [address] Jan, [facility] [address] [id number] [address] [place] [address], [place] [address] Jan, [facility] [address] [id number] [address] [place] [address], [place] [address] Jan, [facility] [address] [id number] [address] [place] [address], [place] [address] Jan, [facility] [address] [id number] [facility] [address] Jan, [facility] [address] [id number] [address] [place] [address], [place] [address] Dec, [facility] [address] [id number] [address] [place] [address], [place] [address] Dec, [facility] [address] [id number] [address] [place] [address], [place] [address] Dec, [facility] [address] [id number] [address] [place] [address], [place] [address] Dec, [facility] [address] [id number] [address] [place] [address], [place] [address] Dec, [facility] [address] [id number] [address] [place] [address], [place] [address] Dec, [facility] [address] [id number] [address] [place] [address], [place] [address] Dec, [facility] [address] [id number] [address] [place] [address], [place] [address] Dec, [facility] [address] [id number] [address] [place] [address], [place] [address] Nov, [facility] [address] [id number] [address] [place] [address], [place] [address] Nov, [facility] [address] [id number] [address] [place] [address], [place] [address] Nov, [facility] [address] [id number] [address] [place] [address], [place] [address] Nov, [facility] [address] [id number] [address] [place] [address], [place] [address] Nov, [facility] [address] [id number] [address] [place] [address], [place] [address] Nov, [facility] [address] [id number] [address] [place] [address], [place] [address] Nov, [facility] [address] [id number] [address] [place] [address], [place] [address] Nov, [facility] [address] [id number] [address] [place] [address], [place] [address] Nov, [facility] [address] [id number] [address] [place] [address], [place] [address] Nov, [facility] [address] [id number] [address] [place] [address], [place] [address] Nov, [facility] [address] [id number] [address] [place] [address], [place] [address] Nov, [facility] [address] [id number] [address] [place] [address], [place] [address] Nov, [facility] [address] [id number] [address] [place] [address], [place] [address] Oct, [facility] [address] [id number] [address] [place] [address], [place] [address] 30 Oct, 2013 [facility] [address] [id number] [address] [place] [address], [place] [address] Oct, [facility] [address] [id number] [address] [place] [address], [place] [address] Oct, [facility] [address] [id number] [address] [place] [address], [place] [address] Oct, [facility] [address] [id number] [address] [place] [address], [place] [address] Oct, [facility] [address] [id number] [address] [place] [address], [place] [address] 18 Oct, 2013 [facility] [address] [id number] [address] [place] [address], [place] [address] 18 Oct, 2013 [facility] [address] [id number] [address] [place] [address], [place] [address] Oct, [facility] [address] [id number] [address] [place] [address], [place] [address] Oct, [facility] [address] [id number] [address] [place] [address], [place] [address] Oct, [facility] [address] [id number] [address] [place] [address], [place] [address] Oct, [facility] [address] [id number] [address] [place] [address], [place] [address] Oct, [facility] [address] [id number] [address] [place] [address], [place] [address] Oct, [facility] [address] [id number] [address] [place] [address], [place] [address] Sep, [facility] [address] [id number] [address] [place] [address], [place] [address] Sep, [facility] [address] [id number] [address] [place] [address], [place] [address] Sep, [facility] [address] [id number] [address] [place] [address], [place] [address] Sep, [facility] [address] [id number] [address] [place] [address], [place] [address] Sep, [facility] [address] [id number] [address] [place] [address], [place] [address] Sep, [facility] [address] [id number] [address] [place] [address], [place] [address] Sep, [facility] [address] [id number] [address] [place] [address], [place] [address] Sep, [facility] [address] [id number] [address] [place] [address], [place] [address] Sep, [facility] [address] [id number] [address] [place] [address], [place] [address] Sep, [facility] [address] [id number] [address] [place] [address], [place] [address] Aug, [facility] [address] [id number] [address] [place] [address], [place] [address] Aug, [facility] [address] [id number] [address] [place] [address] Aug, [facility] [address] [id number] [address] [place] [address] Aug, [facility] [address] [id number] [address] [place] [address] Aug, [facility] [address] [id number] [address] [place] [address], [place] [address] Aug, [facility] [address] [id number] [address] [place] [address] Aug, [facility] [address] [id number] [address] [place] [address] Aug, [facility] [address] [id number] [address] [place] [address] Aug, [facility] [address] [id number] [address] [place] [address] Aug, [facility] [address] [id number] [address] [place] [address] 18 Aug, 2013 [facility] [address] [id number] [address] [place] [address] 18 Aug, 2013 [facility] [address] [id number] [address] [place] [address] 18 Aug, 2013 [facility] [address] [id number] [address] [place] [address], [place] [address] 18 Aug, 2013 [facility] [address] [id number] [address] [place] [address] 17 Aug, 2013 [facility] [address] [id number] [address] [place] [address] 14 Aug, 2013 [facility] [address] [id number] [address] [place] [address], [place] [address] 14 Aug, 2013 [facility] [address] [id number] [address] [place] [address], [place] [address] 01 Aug, 2013 [facility] [address] [id number] [address] [place] [address], [place] [address] 20 Jul, 2013 [facility] [address] [id number] [address] [place] [address], [place] [address] 19 Jul, 2013 [facility] [address] [id number] [address] [place] [address], [place] [address] 18 Jul, 2013 [facility] [address] [id number] [address] [place] [address], [place] [address] 11 Jul, 2013 [facility] [address] [id number] [address] [place] [address], [place] [address] Jul, [facility] [address] [id number] [address] [place] [address], [place] [address] Jun, [facility] [address] [id number] [address] [place] [address], [place] [address] Jun, [facility] [address] [id number] [address] [place] [address], [place] [address] Jun, [facility] [address] [id number] [address] [place] [address], [place] [address] 15 Jun, 2013 [facility] [address] [id number] [address] [place] [address], [place] [address] 14 Jun, 2013 [facility] [address] [id number] [address] [place] [address], [place] [address] Jun, [facility] [address] [id number] [address] [place] [address], [place] [address] Jun, [facility] [address] [id number] [address] [place] [address], [place] [address] 08 Jun, 2013 [facility] [address] [id number] [address] [place] [address], [place] [address] Jun, [facility] [address] [id number] [address] [place] [address], [place] [address] Jun, [facility] [address] [id number] [address] [place] [address], [place] [address] May, [facility] [address] [id number] [address] [place] [address], [place] [address] May, [facility] [address] [id number] [address] [place] [address], [place] [address] May, [facility] [address] [id number] [address] [place] [address], [place] [address] May, [facility] [address] [id number] [address] [place] [address], [place] [address] May, [facility] [address] [id number] [address] [place] [address], [place] [address] May, [facility] [address] [id number] [address] [place] [address], [place] [address] May, [facility] [address] [id number] [address] [place] [address], [place] [address] May, [facility] [address] [id number] [address] [place] [address], [place] [address] May, [facility] [address] [id number] [address] [place] [address], [place] [address] Apr, [facility] [address] [id number] [address] [place] [address], [place] [address] Apr, [facility] [address] [id number] [address] [place] [address], [place] [address] Apr, [facility] [address] [id number] [address] [place] [address], [place] [address] Apr, [facility] [address] [id number] [address] [place] [address], [place] [address] Apr, [facility] [address] [id number] [address] [place] [address], [place] [address] 04 Apr, 2013 [facility] [address] [id number] [address] [place] [address], [place] [address] Apr, [facility] [address] [id number] [address] [place] [address], [place] [address] March, [facility] [address] [id number] [address] [place] [address], [place] [address] Feb, [facility] [address] [id number] [address] [place] [address], [place] [address] Feb, [facility] [address] [id number] [address] [place] [address], [place] [address] Feb, [facility] [address] [id number] [address] [place] [address], [place] [address] Jan, [facility] [address] [id number] [address] [place] [address], [place] [address] Jan, [facility] [address] [id number] [address] [place] [address], [place] [address] Jan, [facility] [address] [id number] [address] [place] [address], [place] [address] Jan, [facility] [address] [id number] [address] [place] [address], [place] [address] Jan, [facility] [address] [id number] [address] [place] [address], [place] [address] Jan, [facility] [address] [id number] [address] [place] [address], [place] [address] Jan, [facility] [address] [id number] [address] [place] [address], [place] [address] Jan, [facility] [address] [id number] [address] [place] [address], [place] [address] Dec, [facility] [address] [id number] [address] [place] [address], [place] [address] Dec, [facility] [address] [id number] [address] [place] [address], [place] [address] 13 Dec, 2012 [facility] [address] [id number] [address] [place] [address], [place] [address] 11 Dec, 2012 [facility] [address] [id number] [address] [place] [address], [place] [address] 07 Dec, 2012 [facility] [address] [id number] [address] [place] [address], [place] [address] 06 Dec, 2012 [facility] [address] [id number] [address] [place] [address], [place] [address] 05 Dec, 2012 [facility] [address] [id number] [address] [place] [address], [place] [address] Nov, [facility] [address] [id number] [address] [place] [address], [place] [address] Nov, [facility] [address] [id number] [address] [place] [address], [place] [address] Nov, [facility] [address] [id number] [address] [place] [address], [place] [address] Nov, [facility] [address] [id number] [address] [place] [address], [place] [address] Nov, [facility] [address] [id number] [address] [place] [address], [place] [address] Nov, [facility] [address] [id number] [address] [place] [address], [place] [address] Nov, [facility] [address] [id number] [address] [place] [address], [place] [address] Oct, [facility] [address] [id number] [address] [place] [address], [place] [address] Oct, [facility] [address] [id number] [address] [place] [address], [place] [address] Oct, [facility] [address] [id number] [address] [place] [address], [place] [address] Oct, [facility] [address] [id number] [address] [place] [address], [place] [address] Oct, [facility] [address] [id number] [address] [place] [address], [place] [address] Oct, [facility] [address] [id number] [address] [place] [address], [place] [address] Oct, [facility] [address] [id number] [address] [place] [address], [place] [address] Oct, [facility] [address] [id number] [address] [place] [address], [place] [address] Oct, [facility] [address] [id number] [address] [place] [address], [place] [address] Oct, [facility] [address] [id number] [address] [place] [address], [place] [address] Oct, [facility] [address] [id number] [address] [place] [address], [place] [address] Oct, [facility] [address] [id number] [address] [place] [address], [place] [address] Sep, [facility] [address] [id number] [address] [place] [address], [place] [address] Sep, [facility] [address] [id number] [address] [place] [address], [place] [address] Sep, [facility] [address] [id number] [address] [place] [address], [place] [address] Sep, [facility] [address] [id number] [address] [place] [address], [place] [address] Sep, [facility] [address] [id number] [address] [place] [address], [place] [address] Sep, [facility] [address] [id number] [address] [place] [address], [place] [address] Sep, [facility] [address] [id number] [address] [place] [address], [place] [address] Sep, [facility] [address] [id number] [address] [place] [address], [place] [address] Sep, [facility] [address] [id number] [address] [place] [address], [place] [address] Sep, [facility] [address] [id number] [address] [place] [address], [place] [address] Sep, [facility] [address] [id number] [address] [place] [address], [place] [address] Aug, [facility] [address] [id number] [address] [place] [address], [place] [address] Aug, [facility] [address] [id number] [address] [place] [address], [place] [address] Aug, [facility] [address] [id number] [address] [place] [address], [place] [address] Aug, [facility] [address] [id number] [address] [place] [address], [place] [address] Aug, [facility] [address] [id number] [address] [place] [address], [place] [address] Aug, [facility] [address] [id number] [address] [place] [address], [place] [address] Aug, [facility] [address] [id number] [address] [place] [address], [place] [address] Aug, [facility] [address] [id number] [address] [place] [address], [place] [address] Aug, [facility] [address] [id number] [address] [place] [address], [place] [address] Aug, [facility] [address] [id number] [address] [place] [address], [place] [address] 22 Jul, 2012 [facility] [address] [id number] [address] [place] [address], [place] [address] Jul, [facility] [address] [id number] [facility] [place] [address] Jul, [facility] [address] [id number] [address] [place] [address], [place] [address] Jul, [facility] [address] [id number] [address] [place] [address], [place] [address] Jun, [facility] [address] [id number] [address] [place] [address], [place] [address] Jun, [facility] [address] [id number] [address] [place] [address], [place] [address] Jun, [facility] [address] [id number] [address] [place] [address], [place] [address] Jun, [facility] [address] [id number] [address] [place] [address], [place] [address] Jun, [facility] [address] [id number] [address] [place] [address], [place] [address] Jun, [facility] [address] [id number] [address] [place] [address], [place] [address] Jun, [facility] [address] [id number] [address] [place] [address], [place] [address] May, [facility] [address] [id number] [address] [place] [address], [place] [address] May, [facility] [address] [id number] [address] [place] [address], [place] [address] May, [facility] [address] [id number] [address] [place] [address], [place] [address] May, [facility] [address] [id number] [address] [place] [address], [place] [address] May, [facility] [address] [id number] [address] [place] [address], [place] [address] Apr, [facility] [address] [id number] [address] [place] [address], [place] [address] 18 Apr, 2012 [facility] [address] [id number] [address] [place] [address], [place] [address] Apr, [facility] [address] [id number] [address] [place] [address], [place] [address] Apr, [facility] [address] [id number] [address] [place] [address], [place] [address] Apr, [facility] [address] [id number] [address] [place] [address], [place] [address] March, [facility] [address] [id number] [address] [place] [address], [place] [address] March, [facility] [address] [id number] [address] [place] [address], [place] [address] March, [facility] [address] [id number] [address] [place] [address], [place] [address] March, [facility] [address] [id number] [address] [place] [address], [place] [address] March, [facility] [address] [id number] [address] [place] [address], [place] [address] March, [facility] [address] [id number] [address] [place] [address], [place] [address] March, [facility] [address] [id number] [address] [place] [address], [place] [address] March, [facility] [address] [id number] [address] [place] [address], [place] [address] March, [facility] [address] [id number] [address] [place] [address], [place] [address] March, [facility] [address] [id number] [address] [place] [address], [place] [address] Feb, [facility] [address] [id number] [address] [place] [address], [place] [address] Feb, [facility] [address] [id number] [address] [place] [address], [place] [address] Feb, [facility] [address] [id number] [address] [place] [address], [place] [address] Feb, [facility] [address] [id number] [address] [place] [address], [place] [address] Feb, [facility] [address] [id number] [address] [place] [address], [place] [address] Feb, [facility] [address] [id number] [address] [place] [address], [place] [address] Feb, [facility] [address] [id number] [address] [place] [address], [place] [address] Feb, [facility] [address] [id number] [address] [place] [address], [place] [address] Feb, [facility] [address] [id number] [address] [place] [address], [place] [address] Jan, [facility] [address] [id number] [address] [place] [address], [place] [address] Jan, [facility] [address] [id number] [address] [place] [address], [place] [address] 05 Jan, 2012 [facility] [address] [id number] [address] [place] [address], [place] [address] Jan, [facility] [address] [id number] [address] [place] [address], [place] [address] Dec, [facility] [address] [id number] [address] [place] [address], [place] [address] Dec, [facility] [address] [id number] [address] [place] [address], [place] [address] Nov, [facility] [address] [id number] [address] [place] [address], [place] [address] Nov, [facility] [address] [id number] [address] [place] [id number] 18 Nov, 2011 [facility] [address] [id number] [address] [place] [address] Nov, [facility] [address] [id number] [address] [place] [address] [id number] Nov, [facility] [address] [id number] [address] [place] [phone] Oct, [facility] [address] [id number] [address] [place] [phone] Oct, [facility] [address] [id number] [address] [place] [phone] Oct, [facility] [address] [id number] [address] [place] [phone] Oct, [facility] [address] [id number] [address] [place] [phone] Oct, [facility] [address] [id number] [address] [place] [phone] Oct, [facility] [address] [id number] [address] [place] [phone] Oct, [facility] [address] [id number] [address] [place] [phone] Oct, [facility] [address] [id number] [address] [place] [phone] Sep, IMMUNIZATIONS No Known Immunizations SOCIAL HISTORY Never Assessed REASON FOR VISIT PLAN OF CARE VITAL SIGNS Height 62 in 2013-06-05 Weight 170.6 lbs 2013-06-05 Temperature 98.4 degrees Fahrenheit 2013-06-05 Heart Rate 80 bpm 2013-06-05 Respiratory Rate 22 2013-06-05 Blood pressure systolic 170 mmHg 2013-06-05 Blood pressure diastolic 80 mmHg 2013-06-05 MEDICATIONS Unknown Medications RESULTS No Results PROCEDURES Procedure Date Ordered Result Body Site X-RAY EXAM OF HIPS June 05, 2013 CT LUMBAR SPINE W/O DYE June 05, 2013 X-RAY EXAM OF LOWER SPINE June 05, 2013 INSTRUCTIONS MEDICATIONS ADMINISTERED No Known Medications [...] fever, discharged 11/27/2017 11/26/2017 Hospitalization History [facility]- Went Unrepsonsive, Hit head 2017 Hospitalization History [facility]- Back Pain 05/05/ 8
--- OUTSIDE RECORDS SUMMARY | 2020-06-18 15:40 | XMS REPORT ---
Author Author Sanjuanita Abdul Doctor Organization [facility] Address Unknown Phone Unavailable Care Team Providers Care Unitizer Name Role Phone Migration, Doctor Unavailable Unavailable PROBLEMS Type Condition ICD9-CM Code DPS18-ET Code Onset Dates Condition S tatus SNOMED Code Problem Hypertension I10 Active 7431906 3 Problem Hyperlipidemia E78.5 Active 11582 004 Problem Coronary artery disease I25.10 Active 34542769 Problem Low back pain M54.5 Active 597265 009 Problem Other chronic pain G89.29 Active 8 2261648 Problem Ventral hernia without obstruction or gangrene K43 .9 Active 349312841 Problem Type 2 diabetes mellitus wit hout complication, without long-term current use of insulin E11.9 Active 921209709 Problem Anxiety F41.9 Active 88960296 Problem Peripheral vascular disease I73.9 Ac tive 349921499 Problem Insomnia G47.00 Active 121034417 Problem Microcytic anemia D50.9 Active 23 6524982 Problem Pharyngeal dysphagia R13.13 Active 94086466613759 Problem Other iron deficiency anemia D50.8 A ctive 04284691 Problem Reactive depression F32.9 Active 63930970 Problem Paroxysmal atrial fibrillation I48.0 Active 357827342 Problem Postmenopausal atrophic vaginitis N95.2 Active 33979281 Problem Encounter for suprapubic catheter care Z43.5 Active 167244678 Problem Neurogenic bladder N31.9 Active 3 [id number] ALLERGIES No Information ENCOUNTERS Encounter Location Date Diagnosis [place] [address] [facility] [id number] [address] [place] [id number] 17 Apr, 2020 Anxiety F41.9 and Strain of right shoulder, subsequent encounter S46.911D [place] [address] [id number] [address] [place] [id number] 04 Apr, 2020 [facility] [address] [facility] [id number] [address] [place] [id number] March, [facility] [address] [id number] [address] [place] [phone] March, Anxiety F41.9 and Strain of right shoulder, subsequent encounter S46.911D [facility] [address] [id number] [address] [place] [phone] Feb, Anxiety F41.9 and Strain of right shoulder, subsequent encounter S46.911D [facility] [address] [id number] [address] [place] [phone] Jan, Anxiety F41.9 and Strain of right shoulder, subsequent encounter S46.911D [facility] [address] [id number] [address] [place] [phone] Jan, Via [facility] [employer] [address] [place] [id number] Jan, Neurogenic bladder N31.9 [facility] [address] [id number] [address] [place] [phone] Dec, [facility] [address] [id number] [address] [place] [phone] Dec, [facility] [address] [id number] [address] [place] [address] Dec, Anxiety F41.9 and Strain of right shoulder, subsequent encounter S46.911D [facility] [address] [id number] [address] [place] [id number] 10 Dec, 2019 Other iron deficiency anemia D50.8 [facility] [address] [id number] [address] [place] [phone] Dec, Via [employer] [address] [place] [id number] Dec, Encounter for suprapubic catheter care Z 43.5 and Microcytic anemia D50.9 [facility] [address] [id number] [address] [place] [id number] Dec, [facility] [address] [id number] [address] [place] [phone] Nov, Anxiety F41.9 and Strain of right shoulder, subsequent encounter S46.911D [facility] [address] [id number] [address] [place] [id number] Nov, Hypertension I10 [facility] [employer] [address] [place] [id number] Nov, Pneumonia of both lungs due to infectiou s organism, unspecified part of lung J18.9 and Suprapubic catheter Z93.59 [place] [address] [id number] [address] [place] [phone] Nov, Hypertension I10 and Reactiv e depression F32.9 [place] [address] [id number] [address] [place] [id number] Oct, Strain of right shoulder, scherer bsequent encounter S46.911D and Anxiety F41.9 [place] [address] [id number] [address] [place] [address] Oct, Via [employer] [facility] [address] [place] [id number] Oct, Suprapubic catheter Z93.59 and Candidias is, intertriginous B37.2 [facility] [address] [id number] [address] [place] [phone] Oct, Suprapubic catheter Z93.59 [facility] [address] [id number] [address] [place] [address] Oct, Anxiety F41.9 and Strain of right shoulder, subsequent encounter S46.911D [facility] [address] [id number] [address] [place] [id number] Sep, [place] [address] [id number] [address] [place] [phone] Sep, [place] [address] [id number] [address] [place] [id number] Sep, [facility] [employer] [address] [place] [id number] Sep, Suprapubic catheter Z93.59 [facility] [address] [id number] [address] [place] [address] Sep, Anxiety F41.9 and Strain of right shoulder, subsequent encounter S46.911D [facility] [address] [id number] [address] [place] [phone] Aug, [facility] [address] [id number] [address] [place] [id number] Aug, [facility] [address] [id number] [address] [place] [address] Aug, Anxiety F41.9 and Strain of right shoulder, subsequent encounter S46.911D [facility] [address] [place] [facility] [place] [place] [id number] Aug, Suprapubic catheter Z93.59 [facility] [address] [id number] [address] [place] [address] Jul, Strain of right shoulder, scherer bsequent encounter S46.911D and Anxiety F41.9 [facility] [address] [id number] [address] [place] [address] Jul, Anxiety F41.9 [facility] [address] [id number] [address] [place] [id number] Jun, [facility] [address] [id number] [address] [place] [phone] Jun, [facility] [address] [id number] [address] [place] [id number] Jun, [facility] [address] [id number] [address] [place] [address] Jun, Strain of right shoulder, scherer bsequent encounter S46.911D [facility] [address] [id number] [address] [place] [address] Jun, Strain of right shoulder, scherer bsequent encounter S46.911D [place] [address] [id number] [address] [place] [address] Jun, Anxiety F41.[address] [facility] [address] [place] [id number] Jun, Neurogenic bladder N31.9 and Anxiety F41 [address] [facility] [address] [place] [id number] May, Anxiety F41.9 [place] [address] [id number] [address] [place] [address] May, Dysuria R30.0 [place] [address] [id number] [address] [place] [address] May, Strain of right shoulder, scherer bsequent encounter S46.911D and Anxiety F41.9 [place] [address] [id number] [address] [place] [address] Apr, Via [facility] [address] [place] [id number] Apr, Strain of right shoulder, subsequent enc ounter S46.911D [place] [address] [id number] [address] [place] [address] 14 Apr, 2019 Strain of right shoulder, scherer bsequent encounter S46.911D and Anxiety F41.[address] [facility] [address] [place] [id number] 13 Apr, 2019 Type 2 diabetes mellitus without complic ation, without long-term current use of insulin E11.9 and Neurogenic bladder N31.[address] 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 [address] [place] [id number] March, Gastrointestinal hemorrhage associated w ith acute gastritis K29.01 [facility] [address] [id number] [address] [place] [phone] March, Via [employer] [address] [place] [id number] March, Bronchitis J40 [facility] [address] [id number] [address] [place] [address] March, Cough R05 [facility] [address] [id number] [address] [place] [address] March, Other chronic pain G89.29 [facility] [address] [id number] [address] [place] [id number] March, Anxiety F41.9 [facility] [address] [id number] [address] [place] [phone] March, [facility] [address] [id number] [address] [place] [address] Feb, Other chronic pain G89.29 [facility] [address] [id number] [address] [place] [address] Feb, Anxiety F41.9 [facility] [address] [id number] [address] [place] [address] Feb, Other chronic pain G89.29 [facility] [employer] [address] [place] [id number] Feb, Neurogenic bladder N31.9 and Suprapubic catheter Z93.59 [facility] [address] [id number] [address] [place] [address] Jan, Anxiety F41.9 [facility] [address] [id number] [address] [place] [address] Dec, Anxiety F41.9 [facility] [address] [id number] [address] [place] [phone] Dec, Other chronic pain G89.29 an d Anxiety F41.9 [facility] [address] [id number] [address] [place] [id number] Dec, Via [employer] [address] [place] [id number] Dec, Neurogenic bladder N31.9 and Suprapubic catheter Z93.59 [facility] [address] [id number] [address] [place] [address] Nov, Other chronic pain G89.29 an d Anxiety F41.9 [facility] [address] [id number] [address] [place] [id number] Nov, Via [employer] [address] [place] [id number] Nov, Suprapubic catheter Z93.59 [facility] [address] [id number] [address] [place] [address] Oct, Other chronic pain G89.29 an d Anxiety F41.9 [facility] [address] [id number] [address] [place] [phone] Oct, [facility] [address] [id number] [address] [place] [address] Oct, Suprapubic catheter Z93.59 [facility] [address] [id number] [address] [place] [phone] Oct, [facility] [employer] [address] [place] [id number] Oct, [facility] [address] [id number] [address] [place] [id number] Oct, Anxiety F41.9 [facility] [address] [id number] [address] [place] [id number] Oct, Anxiety F41.9 [facility] [employer] [address] [place] [id number] Oct, Other chronic pain G89.29 [facility] [address] [id number] [address] [place] [address] Sep, Other chronic pain G89.29 [facility] [employer] [address] [place] [id number] Sep, Suprapubic catheter Z93.59 and Cervicalg ia M54.2 [facility] [address] [id number] [address] [place] [address] Sep, [facility] [address] [id number] [address] [place] [phone] Sep, [facility] [address] [id number] [address] [place] [phone] Sep, [facility] [employer] [address] [place] [id number] Aug, Cystitis N30.90 [facility] [address] [id number] [address] [place] [phone] Aug, [facility] [address] [id number] [address] [place] [address] Aug, Other chronic pain G89.29 [facility] [address] [id number] [address] [place] [id number] Aug, [facility] [employer] [address] [place] [id number] Aug, Encounter for suprapubic catheter care Z 43.5 [facility] [address] [id number] [address] [place] [address] Jul, [facility] [employer] [address] [place] [id number] Jul, [facility] [address] [id number] [address] [place] [phone] Jul, Other chronic pain G89.29 [facility] [address] [id number] [address] [place] [phone] Jul, [facility] [address] [id number] [address] [place] [phone] Jul, [facility] [employer] [address] [place] [id number] Jun, Postmenopausal atrophic vaginitis N95.2 [facility] [address] [id number] [address] [place] [address] Jun, Other chronic pain G89.29 [facility] [address] [id number] [address] [place] [id number] Jun, [facility] [employer] [address] [place] [id number] May, Anxiety F41.9 ; Type 2 diabetes mellitus without complication, without long-term current use of insulin E11.9 ; Hypertension I10 ; Low back pain M54.5 ; Paroxysmal atrial fibrillation I48.0 and 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 [facility] [address] [id number] [address] [place] [address] May, Other chronic pain G89.29 [facility] [employer] [address] [place] [id number] May, Low back pain M54.5 [facility] [address] [id number] [address] [place] [phone] May, [facility] [address] [id number] [address] [place] [address] Apr, Other chronic pain G89.29 [facility] [address] [id number] [address] [place] [address] Apr, [facility] [address] [id number] [address] [place] [address] Apr, [facility] [employer] [address] [place] [id number] Apr, Closed compression fracture of L3 lumbar vertebra with routine healing, subsequent encounter S32.030D [facility] [employer] [address] [place] [id number] 14 Apr, 2018 Low back pain M54.5 [facility] [employer] [address] [place] [id number] 12 Apr, 2018 Coccydynia M53.3 [facility] [address] [id number] [address] [place] [id number] March, [facility] [address] [id number] [address] [place] [address] March, Other chronic pain G89.29 [facility] [address] [id number] [address] [place] [address] March, [facility] [address] [id number] [address] [place] [address] March, [facility] [address] [id number] [address] [place] [address] Feb, [facility] [address] [id number] [address] [place] [address] Feb, Other chronic pain G89.29 [facility] [employer] [address] [place] [id number] Feb, Other chronic pain G89.29 and Anxiety F4 1.9 [facility] [address] [id number] [address] [place] [address] Feb, [facility] [address] [id number] [address] [place] [address] Jan, [facility] [address] [id number] [address] [place] [id number] Jan, [facility] [address] [id number] [address] [place] [phone] Jan, [facility] [address] [id number] [address] [place] [address] Jan, [facility] [address] [facility] [id number] [address] [place] [address] Dec, [facility] [employer] [address] [place] [id number] Dec, Peripheral vascular disease I73.9 ; 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 ; Other chronic pain G89.29 ; Anxiety F41.9 ; Reactive depression F32.9 ; Insomnia G47.00 and Type 2 diabetes mellitus without complication, without long-term current use of insulin E11.[address] [id number] [place] [address] Nov, [facility] [address] [id number] [place] [id number] Nov, Anxiety F41.9 [facility] [address] [facility] [id number] [address] [place] [id number] Nov, [facility] [address] [id number] [place] [id number] Nov, Anxiety F41.9 [facility] [employer] [address] [place] [id number] Nov, Status post surgery Z98.890 ; Confused R 41.0 ; Anxiety F41.9 and Other chronic pain G89.29 [facility] [address] [id number] [place] [id number] Nov, Other chronic pain G89.29 [facility] [address] [facility] [id number] [address] [place] [phone] Oct, [facility] [address] [id number] [place] [id number] Oct, Other chronic pain G89.29 [facility] [address] [facility] [id number] [address] [place] [phone] Oct, Anxiety F41.9 [facility] [address] [id number] [place] [id number] Sep, Other chronic pain G89.29 [facility] [address] [id number] [place] [id number] Sep, [facility] [employer] [address] [place] [id number] Aug, Dysuria R30.0 and Anxiety F41.9 [facility] [address] [id number] [address] [place] [address] Aug, [facility] [address] [id number] [place] [id number] Aug, Other chronic pain G89.29 [facility] [address] [id number] [address] [place] [address] Jul, Other chronic pain G89.29 [facility] [address] [id number] [place] [id number] Jun, [facility] [address] [id number] [place] [id number] Jun, Other chronic pain G89.29 [facility] [address] [id number] [address] [place] [id number] Jun, [facility] [address] [id number] [address] [place] [id number] May, Other chronic pain G89.29 [facility] [address] [id number] [address] [place] [address] Apr, Other chronic pain G89.29 [facility] [address] [place] [id number] Apr, Reactive depression F32.9 and Pharyngeal dysphagia R13.13 [facility] [address] [id number] [address] [place] [address] Apr, Urinary tract infection with out hematuria, site unspecified N39.0 [facility] [address] [id number] [address] [place] [address] March, Other chronic pain G89.29 [facility] [address] [id number] [address] [place] [address] Feb, Other chronic pain G89.29 [facility] [address] [id number] [address] [place] [id number] Feb, [facility] [address] [id number] [place] [facility] [id number] Feb, [facility] [employer] [address] [place] [id number] Feb, Dysuria R30.0 and Ventral hernia without obstruction or gangrene K43.9 [facility] [address] [id number] [address] [place] [id number] Jan, Other chronic pain G89.29 [facility] [address] [id number] [place] [id number] Dec, Other chronic pain G89.29 [facility] [address] [facility] [id number] [address] [place] [phone] Nov, Other chronic pain G89.29 [facility] [address] [place] [id number] Nov, Lymphadenitis I88.9 [facility] [address] [facility] [id number] [address] [place] [phone] Nov, Other chronic pain G89.29 [facility] [address] [facility] [id number] [address] [place] [id number] Nov, [facility] [address] [id number] [place] [id number] Nov, Other chronic pain G89.29 [facility] [employer] [address] [place] [id number] Oct, Low back pain M54.5 ; Hypertension I10 a nd Type 2 diabetes mellitus without complication, without long-term current use of insulin E11.9 [facility] [address] [facility] [id number] [address] [place] [phone] Oct, [facility] [address] [id number] [address] [place] [id number] Oct, [facility] [address] [id number] [address] [place] [id number] Oct, [facility] [address] [id number] [address] [place] [phone] Oct, [facility] [address] [id number] [address] [place] [id number] Sep, [facility] [address] [id number] [address] [place] [phone] Sep, [facility] [address] [id number] [address] [place] [phone] Aug, Other chronic pain G89.29 [facility] [address] [id number] [address] [place] [id number] Jul, [facility] [address] [id number] [address] [place] [id number] Jul, [facility] [address] [id number] [address] [place] [id number] Jul, [facility] [address] [id number] [address] [place] [id number] Jun, [facility] [address] [id number] [address] [place] [phone] Jun, [facility] [address] [place] [id number] Jun, Low back pain M54.5 ; Other chronic pain G89.29 and Coronary artery disease I25.10 [facility] [address] [id number] [address] [place] [phone] Jun, [facility] [address] [address] [id number] [address] [place] [id number] May, [facility] [address] [id number] [address] [place] [id number] May, [facility] [address] [id number] [address] [place] [phone] 13 May, 2016 Other chronic pain G89.29 [facility] [address] [id number] [address] [place] [id number] 13 May, 2016 [facility] [address] [id number] [address] [place] [phone] 28 Apr, 2016 [facility] [address] [id number] [address] [place] [id number] 17 Apr, 2016 Acute cystitis without hemat uria N30.00 [facility] [address] [id number] [address] [place] [id number] 16 Apr, 2016 Acute cystitis without hemat uria N30.00 ; Coronary artery disease I25.10 ; Low back pain M54.5 and Other chronic pain G89.29 [facility] [address] [id number] [address] [place] [id number] 13 Apr, 2016 Other chronic pain G89.29 [facility] [address] [id number] [address] [place] [id number] March, Other chronic pain G89.29 [facility] [address] [id number] [address] [place] [id number] 18 Feb, 2016 [facility] [address] [id number] [address] [place] [id number] 15 Feb, 2016 Arthritis M19.90 [facility] [address] [id number] [address] [place] [phone] Feb, [facility] [address] [id number] [address] [place] [id number] 30 Jan, 2016 [facility] [address] [id number] [address] [place] [id number] Jan, [facility] [address] [id number] [address] [place] [phone] Jan, Other chronic pain G89.29 [facility] [address] [id number] [address] [place] [id number] Jan, Hypertension I10 ; Coronary artery disease I25.10 and Insomnia G47.00 [facility] [address] [id number] [address] [place] [phone] Jan, [facility] [address] [id number] [address] [place] [phone] Dec, Right hip pain M25.551 [facility] [address] [id number] [address] [place] [phone] Dec, [facility] [address] [id number] [address] [place] [id number] Dec, [facility] [address] [id number] [address] [place] [phone] Dec, [facility] [address] [id number] [address] [place] [phone] Dec, Other chronic pain G89.29 [facility] [address] [id number] [address] [place] [phone] Dec, [facility] [address] [id number] [address] [place] [id number] Nov, [facility] [address] [id number] [address] [place] [id number] Nov, Other chronic pain G89.29 [facility] [address] [id number] [address] [place] [id number] Nov, Right hip pain M25.551 and C oronary artery disease I25.10 [facility] [address] [id number] [address] [place] [id number] Nov, Other chronic pain G89.29 [facility] [address] [id number] [address] [place] [id number] Oct, [facility] [address] [facility] [id number] [address] [place] [phone] Oct, [facility] [address] [id number] [address] [place] [id number] Sep, [facility] [address] [id number] [address] [place] [phone] Sep, [facility] [address] [id number] [address] [place] [id number] Aug, [facility] [address] [id number] [address] [place] [phone] Aug, Hypertension I10 ; Coronary artery disease I25.10 and Arthritis M19.90 [facility] [address] [id number] [address] [place] [phone] Jun, [facility] [address] [facility] [id number] [address] [place] [id number] Jun, Essential hypertension, jayson gn 401.1 ; Other chronic pain 338.29 and Chronic airway obstruction, not elsewhere classified 496 [facility] [address] [id number] [address] [place] [phone] Jun, [facility] [address] [id number] [address] [place] [id number] Jun, [facility] [address] [facility] [id number] [address] [place] [phone] Jun, [facility] [address] [id number] [address] [place] [phone] May, [facility] [address] [id number] [address] [place] [phone] May, [facility] [address] [id number] [address] [place] [phone] Apr, [facility] [address] [id number] [address] [place] [id number] Apr, [facility] [address] [id number] [address] [place] [id number] Apr, [facility] [address] [id number] [address] [place] [address], [place] [address] March, [facility] [address] [id number] [address] [place] [address], [place] [address] March, [facility] [address] [id number] [address] [place] [address], [place] [address] March, [facility] [address] [id number] [address] [place] [address], [place] [address] March, [facility] [address] [id number] [address] [place] [address], [place] [address] March, Sialadenitis 527.2 [facility] [address] [id number] [address] [place] [address], [place] [address] Feb, [facility] [address] [id number] [address] [place] [address], [place] [address] Feb, [facility] [address] [id number] [address] [place] [address], [place] [address] Feb, [facility] [address] [id number] [address] [place] [address], [place] [address] Feb, [facility] [address] [id number] [address] [place] [address], [place] [address] Feb, [facility] [address] [id number] [address] [place] [address], [place] [address] Jan, [facility] [address] [id number] [address] [place] [phone] Jan, [facility] [address] [id number] [address] [place] [address], [place] [address] Jan, [facility] [address] [id number] [address] [place] [address], [place] [address] Jan, [facility] [address] [id number] [address] [place] [address], [place] [address] Jan, [facility] [address] [id number] [address] [place] [phone] Jan, [facility] [address] [id number] [address] [place] [address], [place] [address] Dec, [facility] [address] [id number] [address] [place] [address], [place] [address] Dec, [facility] [address] [id number] [address] [place] [address], [place] [address] Dec, [facility] [address] [id number] [address] [place] [address], [place] [address] Dec, [facility] [address] [id number] [address] [place] [address], [place] [address] Dec, [facility] [address] [id number] [address] [place] [address], [place] [address] Dec, [facility] [address] [id number] [address] [place] [address], [place] [address] Nov, [facility] [address] [id number] [address] [place] [address], [place] [address] Nov, [facility] [address] [id number] [address] [place] [address], [place] [address] Nov, [facility] [address] [id number] [address] [place] [address], [place] [address] Nov, [facility] [address] [id number] [address] [place] [address], [place] [address] Nov, [facility] [address] [id number] [address] [place] [address], [place] [address] Nov, [facility] [address] [id number] [address] [place] [address], [place] [address] Nov, [facility] [address] [id number] [address] [place] [address], [place] [address] Nov, [facility] [address] [id number] [address] [place] [address], [place] [address] Nov, [facility] [place] [address] [id number] [address] [place] [address], [place] [address] Nov, [facility] [address] [id number] [address] [place] [address], [place] [address] Nov, [facility] [address] [id number] [address] [place] [address], [place] [address] Nov, [facility] [address] [id number] [address] [place] [address], [place] [address] Nov, [facility] [address] [id number] [address] [place] [address], [place] [address] Nov, [facility] [address] [id number] [address] [place] [address], [place] [address] Oct, [facility] [address] [id number] [address] [place] [address], [place] [address] Oct, [facility] [address] [id number] [address] [place] [address], [place] [address] Oct, [facility] [place] [address] [id number] [address] [place] [address], [place] [address] Oct, [facility] [address] [id number] [address] [place] [address], [place] [address] Oct, [facility] [address] [id number] [address] [place] [address], [place] [address] 17 Oct, 2014 [facility] [address] [id number] [address] [place] [address], [place] [address] 17 Oct, 2014 [facility] [address] [id number] [address] [place] [address], [place] [address] Oct, [facility] [address] [id number] [address] [place] [address], [place] [address] Oct, [facility] [address] [id number] [address] [place] [address], [place] [address] Sep, [facility] [address] [id number] [address] [place] [address], [place] [address] Sep, [facility] [address] [id number] [address] [place] [address], [place] [address] Sep, [facility] [address] [id number] [address] [place] [address], [place] [address] Sep, [facility] [address] [id number] [address] [place] [address], [place] [address] Sep, [facility] [address] [id number] [address] [place] [address], [place] [address] Sep, [facility] [address] [id number] [address] [place] [address], [place] [address] Sep, [facility] [address] [id number] [address] [place] [address], [place] [address] Sep, [facility] [address] [id number] [address] [place] [address], [place] [address] Sep, [facility] [address] [id number] [address] [place] [address], [place] [address] Sep, [facility] [address] [id number] [address] [place] [address], [place] [address] Sep, [facility] [address] [id number] [address] [place] [address], [place] [address] Sep, [facility] [address] [id number] [address] [place] [address], [place] [address] Aug, [facility] [address] [id number] [address] [place] [address], [place] [address] Aug, [facility] [address] [id number] [address] [place] [address], [place] [address] Aug, [facility] [address] [id number] [address] [place] [address], [place] [address] Aug, [facility] [address] [id number] [address] [place] [address], [place] [address] Aug, [facility] [address] [id number] [address] [place] [address], [place] [address] 28 Aug, 2014 [facility] [address] [id number] [address] [place] [address], [place] [address] Aug, [facility] [address] [id number] [address] [place] [address], [place] [address] 17 Aug, 2014 [facility] [address] [id number] [address] [place] [address], [place] [address] 30 Jul, 2013 [facility] [address] [id number] [address] [place] [address], [place] [address] 30 Jul, 2013 [facility] [address] [id number] [address] [place] [address], [place] [address] 30 Jul, 2013 [facility] [address] [id number] [address] [place] [address], [place] [address] 30 Jul, 2013 [facility] [address] [id number] [address] [place] [address], [place] [address] 25 Jul, 2013 [facility] [address] [id number] [address] [place] [address], [place] [address] 25 Jul, 2013 [facility] [address] [id number] [address] [place] [address], [place] [address] 15 Jul, 2014 [facility] [address] [id number] [address] [place] [address], [place] [address] 15 Jul, 2014 [facility] [address] [id number] [address] [place] [address], [place] [address] 11 Jul, 2014 [facility] [address] [id number] [address] [place] [address], [place] [address] Jul, [facility] [address] [id number] [address] [place] [address], [place] [address] Jun, [facility] [address] [id number] [address] [place] [address], [place] [address] Jun, [facility] [address] [id number] [address] [place] [address], [place] [address] Jun, [facility] [address] [id number] [facility] [place] [address] Jun, [facility] [address] [id number] [address] [place] [address], [place] [address] Jun, [facility] [address] [id number] [address] [place] [address], [place] [address] Jun, [facility] [address] [id number] [address] [place] [address], [place] [address] Jun, [facility] [address] [id number] [address] [place] [address], [place] [address] Jun, [facility] [address] [id number] [address] [place] [address], [place] [address] Jun, [facility] [address] [id number] [address] [place] [address], [place] [address] Jun, [facility] [address] [id number] [address] [place] [address], [place] [address] Jun, [facility] [address] [id number] [address] [place] [address], [place] [address] Jun, [facility] [address] [id number] [address] [place] [address], [place] [address] Jun, [facility] [address] [id number] [address] [place] [address], [place] [address] Jun, [facility] [address] [id number] [address] [place] [address], [place] [address] Jun, [facility] [address] [id number] [address] [place] [address], [place] [address] Jun, [facility] [address] [id number] [address] [place] [address], [place] [address] Jun, [facility] [address] [id number] [address] [place] [address], [place] [address] Jun, [facility] [address] [id number] [address] [place] [address], [place] [address] Jun, [facility] [address] [id number] [facility] [place] [address] Jun, [facility] [address] [id number] [address] [place] [address], [place] [address] Jun, [facility] [address] [id number] [address] [place] [address], [place] [address] Jun, [facility] [address] [id number] [address] [place] [address], [place] [address] May, [facility] [address] [id number] [address] [place] [address], [place] [address] May, [facility] [address] [id number] [address] [place] [address], [place] [address] May, [facility] [address] [id number] [address] [place] [address], [place] [address] May, [facility] [address] [id number] [address] [place] [address], [place] [address] May, [facility] [address] [id number] [address] [place] [address], [place] [address] May, [facility] [address] [id number] [address] [place] [address], [place] [address] May, [facility] [address] [id number] [address] [place] [address], [place] [address] May, [facility] [address] [id number] [address] [place] [address], [place] [address] May, [facility] [address] [id number] [address] [place] [address], [place] [address] May, [facility] [address] [id number] [address] [place] [address], [place] [address] May, [facility] [address] [id number] [address] [place] [address], [place] [address] May, [facility] [address] [id number] [facility] [place] [address] May, [facility] [address] [id number] [facility] [place] [address] Apr, [facility] [address] [id number] [facility] [place] [address] Apr, [facility] [address] [id number] [facility] [place] [address] Apr, [facility] [address] [id number] [facility] [place] [address] Apr, [facility] [address] [id number] [facility] [place] [address] Apr, [facility] [address] [id number] [address] [place] [address], [place] [address] Apr, [facility] [address] [id number] [address] [place] [address], [place] [address] Apr, [facility] [address] [id number] [address] [place] [address], [place] [address] Apr, [facility] [address] [id number] [address] [place] [address], [place] [address] Apr, [facility] [address] [id number] [address] [place] [address], [place] [address] March, [facility] [address] [id number] [address] [place] [address], [place] [address] March, [facility] [address] [id number] [address] [place] [address], [place] [address] March, [facility] [address] [id number] [address] [place] [address], [place] [address] March, [facility] [address] [id number] [address] [place] [address], [place] [address] March, [facility] [address] [id number] [address] [place] [address], [place] [address] March, [facility] [address] [id number] [facility] [place] [address] March, [facility] [address] [id number] [address] [place] [address], [place] [address] March, [facility] [address] [id number] [address] [place] [address], [place] [address] March, [facility] [address] [id number] [address] [place] [address], [place] [address] March, [facility] [address] [id number] [address] [place] [address], [place] [address] March, [facility] [address] [id number] [address] [place] [address], [place] [address] March, [facility] [address] [id number] [address] [place] [address], [place] [address] March, [facility] [address] [id number] [address] [place] [address], [place] [address] March, [facility] [address] [id number] [address] [place] [address], [place] [address] March, [facility] [address] [id number] [address] [place] [address], [place] [address] March, [facility] [address] [id number] [address] [place] [address], [place] [address] March, [facility] [address] [id number] [address] [place] [address], [place] [address] March, [facility] [address] [id number] [address] [place] [address], [place] [address] March, [facility] [address] [id number] [address] [place] [address], [place] [address] March, [facility] [address] [id number] [address] [place] [address], [place] [address] Feb, [facility] [address] [id number] [facility] [place] [address] Feb, [facility] [address] [id number] [address] [place] [address], [place] [address] Feb, [facility] [address] [id number] [facility] [place] [address] Feb, [facility] [address] [id number] [address] [place] [address], [place] [address] Feb, [facility] [address] [id number] [address] [place] [address], [place] [address] Feb, [facility] [address] [id number] [address] [place] [address], [place] [address] Feb, [facility] [address] [id number] [address] [place] [address], [place] [address] Feb, [facility] [address] [id number] [address] [place] [address], [place] [address] Jan, [facility] [address] [id number] [address] [place] [address], [place] [address] Jan, [facility] [address] [id number] [address] [place] [address], [place] [address] Jan, [facility] [address] [id number] [address] [place] [address], [place] [address] Jan, [facility] [address] [id number] [address] [place] [address], [place] [address] Jan, [facility] [address] [id number] [address] [place] [address], [place] [address] Jan, [facility] [address] [id number] [address] [place] [address], [place] [address] Jan, [facility] [address] [id number] [address] [place] [address], [place] [address] Jan, [facility] [address] [id number] [address] [place] [address], [place] [address] Jan, [facility] [address] [id number] [facility] [place] [address] Jan, [facility] [address] [id number] [address] [place] [address], [place] [address] Dec, [facility] [address] [id number] [address] [place] [address], [place] [address] Dec, [facility] [facility] [address] [id number] [address] [place] [address], [place] [address] Dec, [facility] [address] [id number] [address] [place] [address], [place] [address] Dec, [facility] [address] [id number] [address] [place] [address], [place] [address] Dec, [facility] [address] [id number] [address] [place] [address], [place] [address] Dec, [facility] [address] [id number] [address] [place] [address], [place] [address] Dec, [facility] [address] [id number] [address] [place] [address], [place] [address] Dec, [facility] [address] [id number] [address] [place] [address], [place] [address] Nov, [facility] [address] [id number] [address] [place] [address], [place] [address] Nov, [facility] [address] [id number] [address] [place] [address], [place] [address] Nov, [facility] [address] [id number] [address] [place] [address], [place] [address] Nov, [facility] [address] [id number] [address] [place] [address], [place] [address] Nov, [facility] [address] [id number] [address] [place] [address], [place] [address] Nov, [facility] [address] [id number] [address] [place] [address], [place] [address] Nov, [facility] [address] [id number] [address] [place] [address], [place] [address] Nov, [facility] [address] [id number] [address] [place] [address], [place] [address] Nov, [facility] [address] [id number] [address] [place] [address], [place] [address] Nov, [facility] [address] [id number] [address] [place] [address], [place] [address] Nov, [facility] [address] [id number] [address] [place] [address], [place] [address] Nov, [facility] [address] [id number] [address] [place] [address], [place] [address] Nov, [facility] [place] [address] [id number] [address] [place] [address], [place] [address] Oct, [facility] [place] [address] [id number] [address] [place] [address], [place] [address] 30 Oct, 2013 [facility] [address] [id number] [address] [place] [address], [place] [address] Oct, [facility] [address] [id number] [address] [place] [address], [place] [address] Oct, [facility] [place] [address] [id number] [address] [place] [address], [place] [address] Oct, [facility] [address] [id number] [address] [place] [address], [place] [address] Oct, [facility] [address] [id number] [address] [place] [address], [place] [address] 18 Oct, 2013 [facility] [address] [id number] [address] [place] [address], [place] [address] 18 Oct, 2013 [facility] [address] [id number] [address] [place] [address], [place] [address] Oct, [facility] [address] [id number] [address] [place] [address], [place] [address] Oct, [facility] [address] [id number] [address] [place] [address], [place] [address] Oct, [facility] [address] [id number] [address] [place] [address], [place] [address] Oct, [facility] [address] [id number] [address] [place] [address], [place] [address] Oct, [facility] [address] [id number] [address] [place] [address], [place] [address] Oct, [facility] [address] [id number] [address] [place] [address], [place] [address] Sep, [facility] [address] [id number] [address] [place] [address], [place] [address] Sep, [facility] [place] [address] [id number] [address] [place] [address], [place] [address] Sep, [facility] [address] [id number] [address] [place] [address], [place] [address] Sep, [facility] [address] [id number] [address] [place] [address], [place] [address] Sep, [facility] [address] [id number] [address] [place] [address], [place] [address] Sep, [facility] [address] [id number] [address] [place] [address], [place] [address] Sep, [facility] [address] [id number] [address] [place] [address], [place] [address] Sep, [facility] [address] [id number] [address] [place] [address], [place] [address] Sep, [facility] [address] [id number] [address] [place] [address], [place] [address] Sep, [facility] [address] [id number] [address] [place] [address], [place] [address] Aug, [facility] [address] [id number] [address] [place] [address], [place] [address] Aug, [facility] [address] [id number] [address] [place] [address] Aug, [facility] [address] [id number] [address] [place] [address] Aug, [facility] [address] [id number] [address] [place] [address] Aug, [facility] [address] [id number] [address] [place] [address], [place] [address] Aug, [facility] [address] [id number] [address] [place] [address] Aug, [facility] [address] [id number] [address] [place] [address] Aug, [facility] [address] [id number] [address] [place] [address] Aug, [facility] [address] [id number] [address] [place] [address] Aug, [facility] [address] [id number] [address] [place] [address] 18 Aug, 2013 [facility] [address] [id number] [address] [place] [address] 18 Aug, 2013 [facility] [address] [id number] [address] [place] [address] 18 Aug, 2013 [facility] [address] [id number] [address] [place] [address], [place] [address] 18 Aug, 2013 [facility] [address] [id number] [address] [place] [id number] 17 Aug, 2013 [facility] [address] [id number] [address] [place] [address] 14 Aug, 2013 [facility] [address] [id number] [address] [place] [address], [place] [address] 14 Aug, 2013 [facility] [address] [id number] [address] [place] [address], [place] [address] 01 Aug, 2013 [facility] [address] [id number] [address] [place] [address], [place] [address] 20 Jul, 2013 [facility] [address] [id number] [address] [place] [address], [place] [address] 19 Jul, 2013 [facility] [address] [id number] [address] [place] [address], [place] [address] 18 Jul, 2013 [facility] [address] [id number] [address] [place] [address], [place] [address] 11 Jul, 2013 [facility] [address] [id number] [address] [place] [address], [place] [address] Jul, [facility] [address] [id number] [address] [place] [address], [place] [address] Jun, [facility] [address] [id number] [address] [place] [address], [place] [address] Jun, [facility] [address] [id number] [address] [place] [address], [place] [address] Jun, [facility] [address] [id number] [address] [place] [address], [place] [address] 15 Jun, 2013 [facility] [address] [id number] [address] [place] [address], [place] [address] 14 Jun, 2013 [facility] [address] [id number] [address] [place] [address], [place] [address] Jun, [facility] [address] [id number] [address] [place] [address], [place] [address] Jun, [facility] [address] [id number] [address] [place] [address], [place] [address] 08 Jun, 2013 [facility] [address] [id number] [address] [place] [address], [place] [address] Jun, [facility] [address] [id number] [address] [place] [address], [place] [address] Jun, [facility] [address] [id number] [address] [place] [address], [place] [address] May, [facility] [address] [id number] [address] [place] [address], [place] [address] May, [facility] [address] [id number] [address] [place] [address], [place] [address] May, [facility] [address] [id number] [address] [place] [address], [place] [address] May, [facility] [address] [id number] [address] [place] [address], [place] [address] May, [facility] [address] [id number] [address] [place] [address], [place] [address] May, [facility] [address] [id number] [address] [place] [address], [place] [address] May, [facility] [address] [id number] [address] [place] [address], [place] [address] May, [facility] [address] [id number] [address] [place] [address], [place] [address] May, [facility] [address] [id number] [address] [place] [address], [place] [address] Apr, [facility] [address] [id number] [address] [place] [address], [place] [address] Apr, [facility] [address] [id number] [address] [place] [address], [place] [address] Apr, [facility] [address] [id number] [address] [place] [address], [place] [address] Apr, [facility] [address] [id number] [address] [place] [address], [place] [address] Apr, [facility] [address] [id number] [address] [place] [address], [place] [address] 04 Apr, 2013 [facility] [place] [address] [id number] [address] [place] [address], [place] [address] Apr, [facility] [address] [id number] [address] [place] [address], [place] [address] March, [facility] [address] [id number] [address] [place] [address], [place] [address] Feb, [facility] [address] [id number] [address] [place] [address], [place] [address] Feb, [facility] [place] [address] [id number] [address] [place] [address], [place] [address] Feb, [facility] [place] [address] [id number] [address] [place] [address], [place] [address] Jan, [facility] [place] [address] [id number] [address] [place] [address], [place] [address] Jan, [facility] [place] [address] [id number] [address] [place] [address], [place] [address] Jan, [facility] [place] [address] [id number] [address] [place] [address], [place] [address] Jan, [facility] [place] [address] [id number] [address] [place] [address], [place] [address] Jan, [facility] [place] [address] [id number] [address] [place] [address], [place] [address] Jan, [facility] [place] [address] [id number] [address] [place] [address], [place] [address] Jan, [facility] [address] [id number] [address] [place] [address], [place] [address] Jan, [facility] [address] [id number] [address] [place] [address], [place] [address] Dec, [facility] [address] [id number] [address] [place] [address], [place] [address] Dec, [facility] [address] [id number] [address] [place] [address], [place] [address] 13 Dec, 2012 [facility] [address] [id number] [address] [place] [address], [place] [address] 11 Dec, 2012 [facility] [address] [id number] [address] [place] [address], [place] [address] 07 Dec, 2012 [facility] [address] [id number] [address] [place] [address], [place] [address] 06 Dec, 2012 [facility] [address] [id number] [address] [place] [address], [place] [address] 05 Dec, 2012 [facility] [address] [id number] [address] [place] [address], [place] [address] Nov, [facility] [address] [id number] [address] [place] [address], [place] [address] Nov, [facility] [address] [id number] [address] [place] [address], [place] [address] Nov, [facility] [place] [address] [id number] [address] [place] [address], [place] [address] Nov, [facility] [place] [address] [id number] [address] [place] [address], [place] [address] Nov, [facility] [address] [id number] [address] [place] [address], [place] [address] Nov, [facility] [address] [id number] [address] [place] [address], [place] [address] Nov, [facility] [address] [id number] [address] [place] [address], [place] [address] Oct, [facility] [address] [id number] [address] [place] [address], [place] [address] Oct, [facility] [address] [id number] [address] [place] [address], [place] [address] Oct, [facility] [address] [id number] [address] [place] [address], [place] [address] Oct, [facility] [address] [id number] [address] [place] [address], [place] [address] Oct, [facility] [address] [id number] [address] [place] [address], [place] [address] Oct, [facility] [address] [id number] [address] [place] [address], [place] [address] Oct, [facility] [address] [id number] [address] [place] [address], [place] [address] Oct, [facility] [address] [id number] [address] [place] [address], [place] [address] Oct, [facility] [address] [id number] [address] [place] [address], [place] [address] Oct, [facility] [address] [id number] [address] [place] [address], [place] [address] Oct, [facility] [address] [id number] [address] [place] [address], [place] [address] Oct, [facility] [address] [id number] [address] [place] [address], [place] [address] Sep, [facility] [address] [id number] [address] [place] [address], [place] [address] Sep, [facility] [address] [id number] [address] [place] [address], [place] [address] Sep, [facility] [address] [id number] [address] [place] [address], [place] [address] Sep, [facility] [address] [id number] [address] [place] [address], [place] [address] Sep, [facility] [address] [id number] [address] [place] [address], [place] [address] Sep, [facility] [address] [id number] [address] [place] [address], [place] [address] Sep, [facility] [address] [id number] [address] [place] [address], [place] [address] Sep, [facility] [address] [id number] [address] [place] [address], [place] [address] Sep, [facility] [address] [id number] [address] [place] [address], [place] [address] Sep, [facility] [address] [id number] [address] [place] [address], [place] [address] Sep, [facility] [address] [id number] [address] [place] [address], [place] [address] Aug, [facility] [address] [id number] [address] [place] [address], [place] [address] Aug, [facility] [address] [id number] [address] [place] [address], [place] [address] Aug, [facility] [address] [id number] [address] [place] [address], [place] [address] Aug, [facility] [address] [id number] [address] [place] [address], [place] [address] Aug, [facility] [address] [id number] [address] [place] [address], [place] [address] Aug, [facility] [address] [id number] [address] [place] [address], [place] [address] Aug, [facility] [address] [id number] [address] [place] [address], [place] [address] Aug, [facility] [address] [id number] [address] [place] [address], [place] [address] Aug, [facility] [address] [id number] [address] [place] [address], [place] [address] Aug, [facility] [address] [id number] [address] [place] [address], [place] [address] 22 Jul, 2012 [facility] [address] [id number] [address] [place] [address], [place] [address] Jul, [facility] [address] [id number] [facility] [place] [address] Jul, [facility] [address] [id number] [address] [place] [address], [place] [address] Jul, [facility] [address] [id number] [address] [place] [address], [place] [address] Jun, [facility] [address] [id number] [address] [place] [address], [place] [address] Jun, [facility] [address] [id number] [address] [place] [address], [place] [address] Jun, [facility] [address] [id number] [address] [place] [address], [place] [address] Jun, [facility] [address] [id number] [address] [place] [address], [place] [address] Jun, [facility] [address] [id number] [address] [place] [address], [place] [address] Jun, [facility] [address] [id number] [address] [place] [address], [place] [address] Jun, [facility] [address] [id number] [address] [place] [address], [place] [address] May, [facility] [address] [id number] [address] [place] [address], [place] [address] May, [facility] [address] [id number] [address] [place] [address], [place] [address] May, [facility] [address] [id number] [address] [place] [address], [place] [address] May, [facility] [address] [id number] [address] [place] [address], [place] [address] May, [facility] [address] [id number] [address] [place] [address], [place] [address] Apr, [facility] [address] [id number] [address] [place] [address], [place] [address] 18 Apr, 2012 [facility] [place] [address] [id number] [address] [place] [address], [place] [address] Apr, [facility] [address] [id number] [address] [place] [address], [place] [address] Apr, [facility] [place] [address] [id number] [address] [place] [address], [place] [address] Apr, [facility] [address] [id number] [address] [place] [address], [place] [address] March, [facility] [address] [id number] [address] [place] [address], [place] [address] March, [facility] [address] [id number] [address] [place] [address], [place] [address] March, [facility] [place] [address] [id number] [address] [place] [address], [place] [address] March, [facility] [place] [address] [id number] [address] [place] [address], [place] [address] March, [facility] [place] [address] [id number] [address] [place] [address], [place] [address] March, [facility] [address] [id number] [address] [place] [address], [place] [address] March, [facility] [place] [address] [id number] [address] [place] [address], [place] [address] March, [facility] [address] [id number] [address] [place] [address], [place] [address] March, [facility] [address] [id number] [address] [place] [address], [place] [address] March, [facility] [address] [id number] [address] [place] [address], [place] [address] Feb, [facility] [place] [address] [id number] [address] [place] [address], [place] [address] Feb, [facility] [address] [id number] [address] [place] [address], [place] [address] Feb, [facility] [address] [id number] [address] [place] [address], [place] [address] Feb, [facility] [address] [id number] [address] [place] [address], [place] [address] Feb, [facility] [address] [id number] [address] [place] [address], [place] [address] Feb, [facility] [address] [id number] [address] [place] [address], [place] [address] Feb, [facility] [address] [id number] [address] [place] [address], [place] [address] Feb, [facility] [address] [id number] [address] [place] [address], [place] [address] Feb, [facility] [place] [address] [id number] [address] [place] [address], [place] [address] Jan, [facility] [address] [id number] [address] [place] [address], [place] [address] Jan, [facility] [place] [address] [id number] [address] [place] [address], [place] [id number] 05 Jan, 2012 [facility] [address] [id number] [address] [place] [address], [place] [phone] Jan, [facility] [address] [id number] [address] [place] [address], [place] [id number] Dec, [facility] [address] [id number] [address] [place] [address], [place] [id number] Dec, [facility] [address] [id number] [address] [place] [address], [place] [id number] Nov, [facility] [address] [id number] [address] [place] [address], [place] [id number] Nov, [facility] [address] [id number] [address] [place] [id number] Nov, [facility] [address] [id number] [address] [place] [phone] Nov, [facility] [address] [id number] [address] [place] [id number] Nov, [facility] [address] [id number] [address] [place] [id number] Oct, [facility] [address] [id number] [address] [place] [id number] Oct, [facility] [address] [id number] [address] [place] [phone] Oct, [facility] [address] [id number] [address] [place] [id number] Oct, [facility] [address] [id number] [address] [place] [id number] Oct, [facility] [address] [id number] [address] [place] [phone] Oct, [facility] [address] [id number] [address] [place] [phone] Oct, [facility] [address] [id number] [address] [place] [phone] Oct, [facility] [address] [id number] [address] [place] [phone] Sep, IMMUNIZATIONS No Known Immunizations SOCIAL HISTORY [...] History No Surgical history information Hospitalization History [facility]- Urosepsis, ab d pain and fever, discharged 11/27/2017 11/26/2017 Hospitalization History [facility]- Went Unrepsonsive, Hit head 2017 Hospitalization History [facility]- Back Pain 8
--- OUTSIDE RECORDS SUMMARY | 2020-06-18 15:41 | XMS REPORT ---
Author Sanjuanita Burris [facility] Address [address] [place] [address] Care Team Providers Care Software Verification Engineer Name Role Phone AUDIE MARC Unavailable PROBLEMS Type Condition ICD9-CM Code [id number] Code Onset Dates Condition S tatus SNOMED Code Problem Hypertension I10 Active 0524118 3 Problem Hyperlipidemia E78.5 Active 62185 004 Problem Coronary artery disease I25.10 Active 60375858 Problem Low back pain M54.5 Active 131187 009 Problem Other chronic pain G89.29 Active 8 3459677 Problem Ventral hernia without obstruction or gangrene K43 .9 Active 725916204 Problem Type 2 diabetes mellitus wit hout complication, without long-term current use of insulin E11.9 Active 137854037 Problem Anxiety F41.9 Active 57267890 Problem Peripheral vascular disease I73.9 Ac tive 825202120 Problem Insomnia G47.00 Active 436851504 Problem Microcytic anemia D50.9 Active 23 2940471 Problem Pharyngeal dysphagia R13.13 Active 08141956968987 Problem Other iron deficiency anemia D50.8 A ctive 73144443 Problem Reactive depression F32.9 Active 81364608 Problem Paroxysmal atrial fibrillation I48.0 Active 209780061 Problem Postmenopausal atrophic vaginitis N95.2 Active 73624140 Problem Encounter for suprapubic catheter care Z43.5 Active 029265820 Problem Neurogenic bladder N31.9 Active 3 [id number] ALLERGIES No Information ENCOUNTERS Encounter Location Date Diagnosis [facility] [address] [id number] [address] [place] [address] 17 Apr, 2020 Anxiety F41.9 and Strain of right shoulder, subsequent encounter S46.911D [facility] [address] [facility] [id number] [address] [place] [address] 04 Apr, 2020 [facility] [address] [facility] [id number] [address] [place] [address] March, [facility] [address] [id number] [address] [place], [place] [address] March, Anxiety F41.9 and Strain of right shoulder, subsequent encounter S46.911D [facility] [address] [id number] [address] [place] [address] Feb, Anxiety F41.9 and Strain of right shoulder, subsequent encounter S46.911D [facility] [address] [id number] [address] [place] [id number] Jan, Anxiety F41.9 and Strain of right shoulder, subsequent encounter S46.911D [facility] [address] [id number] [address] [place] [id number] Jan, Via [facility] [address] [place] [id number] Jan, Neurogenic bladder N31.9 [place] [address] [id number] [address] [place] [address] Dec, [facility] [address] [id number] [address] [place] [address] Dec, [facility] [address] [id number] [address] [place] [address] 24 Dec, 2019 Anxiety F41.9 and Strain of right shoulder, subsequent encounter S46.911D [facility] [address] [id number] [address] [place] [address] 10 Dec, 2019 Other iron deficiency anemia D50.8 [facility] [address] [id number] [address] [place] [address] Dec, Via [facility] [facility] [address] [place] [id number] Dec, Encounter for suprapubic catheter care Z 43.5 and Microcytic anemia D50.9 [place] [address] [id number] [address] [place] [address] Dec, [facility] [address] [id number] [address] [place] [address] Nov, Anxiety F41.9 and Strain of right shoulder, subsequent encounter S46.911D [facility] [address] [id number] [address] [place] [address] Nov, Hypertension I10 Via [facility] [address] [place] [id number] Nov, Pneumonia of both lungs due to infectiou s organism, unspecified part of lung J18.9 and Suprapubic catheter Z93.59 [facility] [address] [id number] [address] [place] [address] Nov, Hypertension I10 and Reactiv e depression F32.9 [place] [address] [id number] [address] [place] [address] Oct, Strain of right shoulder, scherer bsequent encounter S46.911D and Anxiety F41.9 [facility] [address] [id number] [address] [place] [address] Oct, Via [facility] [address] [place] [id number] Oct, Suprapubic catheter Z93.59 and Candidias is, intertriginous B37.2 [facility] [address] [id number] [address] [place] [address] Oct, Suprapubic catheter Z93.59 [facility] [address] [id number] [address] [place] [address] Oct, Anxiety F41.9 and Strain of right shoulder, subsequent encounter S46.911D [facility] [address] [id number] [address] [place] [address] Sep, [place] [address] [id number] [address] [place] [address] Sep, [place] [address] [id number] [address] [place] [address] Sep, Via [facility] [address] [place] [id number] Sep, Suprapubic catheter Z93.59 [facility] [address] [id number] [address] [place] [address] Sep, Anxiety F41.9 and Strain of right shoulder, subsequent encounter S46.911D [facility] [address] [id number] [address] [place] [address] Aug, [facility] [address] [id number] [address] [place] [address] Aug, [facility] [address] [id number] [address] [place] [address] Aug, Anxiety F41.9 and Strain of right shoulder, subsequent encounter S46.911D [facility] [address] [place] [id number] Aug, Suprapubic catheter Z93.59 [facility] [address] [id number] [address] [place] [address] Jul, Strain of right shoulder, scherer bsequent encounter S46.911D and Anxiety F41.9 [facility] [address] [id number] [address] [place] [address] Jul, Anxiety F41.9 [facility] [address] [id number] [address] [place] [address] Jun, [facility] [address] [id number] [address] [place] [address] Jun, [facility] [address] [id number] [address] [place] [address] Jun, [facility] [address] [id number] [address] [place] [address] Jun, Strain of right shoulder, scherer bsequent encounter S46.911D [facility] [address] [id number] [address] [place] [address] Jun, Strain of right shoulder, scherer bsequent encounter S46.911D [place] [address] [id number] [address] [place] [address] Jun, Anxiety F41.9 Via [facility] [address] [place] [id number] Jun, Neurogenic bladder N31.9 and Anxiety F41 .9 Via [facility] [address] [place] [id number] May, Anxiety F41.9 [place] [address] [id number] [address] [place] [address] May, Dysuria R30.0 [place] [address] [id number] [address] [place] [address] May, Strain of right shoulder, scherer bsequent encounter S46.911D and Anxiety F41.9 [place] [address] [id number] [address] [place] [address] Apr, Via [facility] [address] [place] [id number] Apr, Strain of right shoulder, subsequent enc ounter S46.911D [place] [address] [id number] [address] [place] [address] 14 Apr, 2019 Strain of right shoulder, scherer bsequent encounter S46.911D and Anxiety F41.9 Via [facility] [address] [place] [id number] 13 Apr, 2019 Type 2 diabetes mellitus without complic ation, without long-term current use of insulin E11.9 and Neurogenic bladder N31.9 [facility] [address] [place] [id number] Apr, Strain of right shoulder, subsequent enc ounter S46.911D ; History of GI bleed Z87.19 ; Neurogenic bladder N31.9 and Reactive depression F32.9 [place] [address] [id number] [address] [place] [address] Apr, Acute pain of left shoulder M25.512 [facility] [address] [id number] [address] [place] [address] Apr, [facility] [address] [id number] [address] [place] [address] Apr, Anxiety F41.9 and 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/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 Via [facility] [address] [place] [id number] March, Gastrointestinal hemorrhage associated w ith acute gastritis K29.01 [facility] [address] [id number] [address] [place] [address] March, [facility] [address] [place] [id number] March, Bronchitis J40 [facility] [address] [id number] [address] [place] [address] March, Cough R05 [facility] [address] [id number] [address] [place] [address] March, Other chronic pain G89.29 [facility] [address] [id number] [address] [place] [address] March, Anxiety F41.9 [facility] [address] [id number] [address] [place] [address] March, [facility] [address] [id number] [address] [place] [address] Feb, Other chronic pain G89.29 [facility] [address] [id number] [address] [place] [address] Feb, Anxiety F41.9 [facility] [address] [id number] [address] [place] [address] Feb, Other chronic pain G89.29 Via [facility] [address] [place] [id number] Feb, Neurogenic bladder N31.9 and Suprapubic catheter Z93.59 [facility] [address] [id number] [address] [place] [address] Jan, Anxiety F41.9 [facility] [address] [id number] [address] [place] [address] Dec, Anxiety F41.9 [facility] [address] [id number] [address] [place] [address] Dec, Other chronic pain G89.29 an d Anxiety F41.9 [facility] [address] [id number] [address] [place] [address] Dec, Via [employer] [address] [place] [id number] Dec, Neurogenic bladder N31.9 and Suprapubic catheter Z93.59 [facility] [address] [id number] [address] [place] [address] Nov, Other chronic pain G89.29 an d Anxiety F41.9 [facility] [address] [id number] [address] [place] [address] Nov, Via [employer] [address] [place] [id number] Nov, Suprapubic catheter Z93.59 [facility] [address] [id number] [address] [place] [address] Oct, Other chronic pain G89.29 an d Anxiety F41.9 [facility] [address] [id number] [address] [place] [address] Oct, [facility] [address] [id number] [address] [place] [address] Oct, Suprapubic catheter Z93.59 [facility] [address] [id number] [address] [place] [address] Oct, Via [employer] [address] [place] [id number] Oct, [facility] [address] [id number] [address] [place] [address] Oct, Anxiety F41.9 [facility] [address] [id number] [address] [place] [address] Oct, Anxiety F41.9 Via [facility] [address] [place] [id number] Oct, Other chronic pain G89.29 [facility] [address] [id number] [address] [place] [address] Sep, Other chronic pain G89.29 [facility] [employer] [address] [place] [id number] Sep, Suprapubic catheter Z93.59 and Cervicalg ia M54.2 [facility] [address] [id number] [address] [place] [address] Sep, [facility] [address] [id number] [address] [place] [address] Sep, [facility] [address] [id number] [address] [place] [address] Sep, Via [employer] [address] [place] [id number] Aug, Cystitis N30.90 [facility] [address] [id number] [address] [place] [address] Aug, [facility] [address] [id number] [address] [place] [address] Aug, Other chronic pain G89.29 [facility] [address] [id number] [address] [place] [address] Aug, Via [employer] [address] [place] [id number] Aug, Encounter for suprapubic catheter care Z 43.5 [facility] [address] [id number] [address] [place] [address] Jul, Via [employer] [address] [place] [id number] Jul, [facility] [address] [id number] [address] [place] [address] Jul, Other chronic pain G89.29 [facility] [address] [id number] [address] [place] [address] Jul, [facility] [address] [id number] [address] [place] [address] Jul, Via [facility] [address] [place] [id number] Jun, Postmenopausal atrophic vaginitis N95.2 [facility] [address] [id number] [address] [place] [address] Jun, Other chronic pain G89.29 [facility] [address] [id number] [address] [place] [address] Jun, Via [facility] [employer] [address] [place] [id number] May, Anxiety F41.9 ; Type 2 diabetes mellitus without complication, without long-term current use of insulin E11.9 ; Hypertension I10 ; Low back pain M54.5 ; Paroxysmal atrial fibrillation I48.0 and 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 [facility] [address] [id number] [address] [place] [address] May, Other chronic pain G89.29 Via [facility] [address] [place] [id number] May, Low back pain M54.5 [facility] [address] [id number] [address] [place] [address] May, [facility] [address] [id number] [address] [place] [address] Apr, Other chronic pain G89.29 [facility] [address] [id number] [address] [place] [address] Apr, [facility] [address] [id number] [address] [place] [address] Apr, Via [employer] [address] [place] [id number] Apr, Closed compression fracture of L3 lumbar vertebra with routine healing, subsequent encounter S32.030D [facility] [employer] [address] [place] [id number] 14 Apr, 2018 Low back pain M54.5 Via [employer] [address] [place] [id number] 12 Apr, 2018 Coccydynia M53.3 [facility] [address] [id number] [address] [place] [address] March, [facility] [address] [id number] [address] [place] [address] March, Other chronic pain G89.29 [facility] [address] [id number] [address] [place] [address] March, [facility] [address] [id number] [address] [place] [address] March, [facility] [address] [id number] [address] [place] [address] Feb, [facility] [address] [id number] [address] [place] [address] Feb, Other chronic pain G89.29 Via [employer] [address] [place] [id number] Feb, Other chronic pain G89.29 and Anxiety F4 1.9 [facility] [address] [id number] [address] [place] [address] Feb, [facility] [address] [id number] [address] [place] [address] Jan, [facility] [address] [id number] [address] [place] [address] Jan, [facility] [address] [id number] [address] [place] [address] Jan, [facility] [address] [facility] [id number] [address] [place] [address] Jan, [facility] [address] [facility] [id number] [address] [place] [address] Dec, Via [facility] [address] [place] [id number] Dec, Peripheral vascular disease I73.9 ; 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 ; Other chronic pain G89.29 ; Anxiety F41.9 ; Reactive depression F32.9 ; Insomnia G47.00 and Type 2 diabetes mellitus without complication, without long-term current use of insulin E11.[address] [id number] [address] Nov, [place] [address] [id number] [facility] [facility] [place] [id number] Nov, Anxiety F41.9 [place] [address] [facility] [id number] [address] [place] [address] Nov, [place] [address] [id number] [facility] [id number] Nov, Anxiety F41.9 Via [employer] [address] [place] [id number] Nov, Status post surgery Z98.890 ; Confused R 41.0 ; Anxiety F41.9 and Other chronic pain G89.29 [place] [address] [id number] [place] [id number] Nov, Other chronic pain G89.29 [place] [address] [facility] [id number] [address] [place] [address] Oct, [place] [address] [id number] [facility] [place] [id number] Oct, Other chronic pain G89.29 [place] [address] [facility] [id number] [address] [place] [address] Oct, Anxiety F41.9 [place] [address] [id number] [place] [id number] Sep, Other chronic pain G89.29 [facility] [address] [id number] [place] [id number] Sep, Via [facility] [address] [place] [id number] Aug, Dysuria R30.0 and Anxiety F41.9 [facility] [address] [facility] [id number] [address] [place] [address] Aug, [facility] [address] [id number] [facility] [facility] [place] [id number] Aug, Other chronic pain G89.29 [facility] [address] [facility] [id number] [address] [place] [address] Jul, Other chronic pain G89.29 [facility] [address] [id number] [place] [id number] Jun, [facility] [address] [id number] [place] [id number] Jun, Other chronic pain G89.29 [facility] [address] [facility] [id number] [address] [place] [address] Jun, [facility] [address] [facility] [id number] [address] [place] [address] May, Other chronic pain G89.29 [facility] [address] [facility] [id number] [address] [place] [address] Apr, Other chronic pain G89.29 Via [facility] [address] [place] [id number] Apr, Reactive depression F32.9 and Pharyngeal dysphagia R13.13 [facility] [address] [id number] [address] [place] [address] Apr, Urinary tract infection with out hematuria, site unspecified N39.0 [facility] [address] [facility] [id number] [address] [place] [address] March, Other chronic pain G89.29 [facility] [address] [id number] [address] [place] [address] Feb, Other chronic pain G89.29 [facility] [address] [id number] [address] [place] [address] Feb, [facility] [address] [id number] [id number] Feb, [facility] [address] [place] [id number] Feb, Dysuria R30.0 and Ventral hernia without obstruction or gangrene K43.9 [facility] [address] [id number] [address] [place] [address] Jan, Other chronic pain G89.29 [facility] [address] [id number] [place] [id number] Dec, Other chronic pain G89.29 [facility] [address] [id number] [address] [place] [address] Nov, Other chronic pain G89.29 [facility] [employer] [address] [place] [id number] Nov, Lymphadenitis I88.9 [facility] [address] [facility] [id number] [address] [place] [address] Nov, Other chronic pain G89.29 [facility] [address] [id number] [address] [place] [address] Nov, [facility] [address] [id number] [place] [id number] Nov, Other chronic pain G89.29 [facility] [address] [place] [id number] Oct, Low back pain M54.5 ; Hypertension I10 a nd Type 2 diabetes mellitus without complication, without long-term current use of insulin E11.9 [facility] [address] [facility] [id number] [address] [place] [address] Oct, [facility] [address] [id number] [address] [place] [address] Oct, [facility] [address] [id number] [address] [place] [address] Oct, [facility] [address] [id number] [address] [place] [id number] Oct, [facility] [address] [id number] [address] [place] [id number] Sep, [facility] [address] [id number] [address] [place] [id number] Sep, [facility] [address] [id number] [address] [place] [id number] Aug, Other chronic pain G89.29 [facility] [address] [id number] [address] [place] [id number] Jul, [facility] [address] [id number] [address] [place] [id number] Jul, [facility] [address] [id number] [address] [place] [id number] Jul, [facility] [address] [id number] [address] [place] [id number] Jun, [facility] [address] [id number] [address] [place] [id number] Jun, [facility] [address] [place] [id number] Jun, Low back pain M54.5 ; Other chronic pain G89.29 and Coronary artery disease I25.10 [facility] [address] [id number] [address] [place] [id number] Jun, [facility] [address] [id number] [address] [place] [id number] May, [facility] [address] [id number] [address] [place] [id number] 15 May, 2016 [facility] [address] [id number] [address] [place] [id number] 13 May, 2016 Other chronic pain G89.29 [facility] [address] [id number] [address] [place] [id number] 13 May, 2016 [facility] [address] [id number] [address] [place] [id number] 28 Apr, 2016 [facility] [address] [id number] [address] [place] [id number] 17 Apr, 2016 Acute cystitis without hemat uria N30.00 [facility] [facility] [address] [id number] [address] [place] [address] 16 Apr, 2016 Acute cystitis without hemat uria N30.00 ; Coronary artery disease I25.10 ; Low back pain M54.5 and Other chronic pain G89.29 [facility] [address] [id number] [address] [place] [address] 13 Apr, 2016 Other chronic pain G89.29 [facility] [address] [id number] [address] [place] [address] March, Other chronic pain G89.29 [facility] [address] [id number] [address] [place] [address] 18 Feb, 2016 [facility] [address] [id number] [address] [place] [address] 15 Feb, 2016 Arthritis M19.90 [facility] [address] [id number] [address] [place] [address] Feb, [facility] [address] [id number] [address] [place] [address] 30 Jan, 2016 [facility] [address] [id number] [address] [place] [address] Jan, [facility] [address] [id number] [address] [place] [address] Jan, Other chronic pain G89.29 [facility] [address] [id number] [address] [place] [address] Jan, Hypertension I10 ; Coronary artery disease I25.10 and Insomnia G47.00 [facility] [address] [id number] [address] [place] [address] Jan, [facility] [address] [id number] [address] [place] [address] Dec, Right hip pain M25.551 [facility] [address] [id number] [address] [place] [address] Dec, [facility] [address] [id number] [address] [place] [address] Dec, [facility] [address] [id number] [address] [place] [address] Dec, [facility] [address] [id number] [address] [place] [address] Dec, Other chronic pain G89.29 [facility] [address] [id number] [address] [place] [address] Dec, [facility] [address] [id number] [address] [place] [address] Nov, [facility] [address] [id number] [address] [place] [address] Nov, Other chronic pain G89.29 [facility] [address] [id number] [address] [place] [address] Nov, Right hip pain M25.551 and C oronary artery disease I25.10 [facility] [address] [id number] [address] [place] [id number] Nov, Other chronic pain G89.29 [facility] [address] [id number] [address] [place] [address] Oct, [facility] [address] [id number] [address] [place] [address] Oct, [facility] [address] [id number] [address] [place] [id number] Sep, [facility] [address] [id number] [address] [place] [address] Sep, [facility] [address] [id number] [address] [place] [address] Aug, [facility] [address] [id number] [address] [place] [address] Aug, Hypertension I10 ; Coronary artery disease I25.10 and Arthritis M19.90 [facility] [address] [id number] [address] [place] [address] Jun, [facility] [address] [id number] [address] [place] [address] Jun, Essential hypertension, jayson gn 401.1 ; Other chronic pain 338.29 and Chronic airway obstruction, not elsewhere classified 496 [facility] [address] [id number] [address] [place] [address] Jun, [facility] [address] [id number] [address] [place] [address] Jun, [facility] [address] [id number] [address] [place] [address] Jun, [facility] [address] [id number] [address] [place] [address] May, [facility] [address] [id number] [address] [place] [address] May, [facility] [address] [id number] [address] [place] [address] Apr, [facility] [address] [id number] [address] [place] [address] Apr, [facility] [address] [id number] [address] [place] [address], [place] [address] Apr, [facility] [address] [id number] [address] [place] [address], [place] [address] March, [facility] [address] [id number] [address] [place] [address], [place] [address] March, [facility] [address] [id number] [address] [place] [address], [place] [address] March, [facility] [address] [id number] [address] [place] [address], [place] [address] March, [facility] [address] [id number] [address] [place] [address], [place] [address] March, Sialadenitis 527.2 [facility] [address] [id number] [address] [place] [address], [place] [address] Feb, [facility] [address] [id number] [address] [place] [address], [place] [address] Feb, [facility] [address] [id number] [address] [place] [address], [place] [address] Feb, [facility] [address] [id number] [address] [place] [address], [place] [address] Feb, [facility] [address] [id number] [address] [place] [address], [place] [address] Feb, [facility] [address] [id number] [address] [place] [address], [place] [address] Jan, [facility] [address] [id number] [address] [place] [address], [place] [address] Jan, [facility] [address] [id number] [address] [place] [address], [place] [address] Jan, [facility] [address] [id number] [address] [place] [address], [place] [address] Jan, [facility] [address] [id number] [address] [place] [address], [place] [address] Jan, [facility] [address] [id number] [address] [place] [address], [place] [address] Jan, [facility] [address] [id number] [address] [place] [address], [place] [address] Dec, [facility] [address] [id number] [address] [place] [address], [place] [address] Dec, [facility] [address] [id number] [address] [place] [address], [place] [address] Dec, [facility] [address] [id number] [address] [place] [address], [place] [address] Dec, [facility] [address] [id number] [address] [place] [address], [place] [address] Dec, [facility] [address] [id number] [address] [place] [address], [place] [address] Dec, [facility] [address] [id number] [address] [place] [address], [place] [address] Nov, [facility] [address] [id number] [address] [place] [address], [place] [address] Nov, [facility] [address] [id number] [address] [place] [address], [place] [address] Nov, [facility] [address] [id number] [address] [place] [address], [place] [address] Nov, [facility] [address] [id number] [address] [place] [address], [place] [address] Nov, [facility] [address] [id number] [address] [place] [address], [place] [address] Nov, [facility] [address] [id number] [address] [place] [address], [place] [address] Nov, [facility] [address] [id number] [address] [place] [address], [place] [address] Nov, [facility] [address] [id number] [address] [place] [address], [place] [address] 16 Nov, 2014 [facility] [address] [id number] [address] [place] [address], [place] [address] Nov, [facility] [address] [id number] [address] [place] [address], [place] [address] Nov, [facility] [address] [id number] [address] [place] [address], [place] [address] Nov, [facility] [address] [id number] [address] [place] [address], [place] [address] Nov, [facility] [address] [id number] [address] [place] [address], [place] [address] Nov, [facility] [address] [id number] [address] [place] [address], [place] [address] Oct, [facility] [address] [id number] [address] [place] [address], [place] [address] Oct, [facility] [address] [id number] [address] [place] [address], [place] [address] Oct, [facility] [address] [id number] [address] [place] [address], [place] [address] Oct, [facility] [address] [id number] [address] [place] [address], [place] [address] 18 Oct, 2014 [facility] [address] [id number] [address] [place] [address], [place] [address] 17 Oct, 2014 [facility] [address] [id number] [address] [place] [address], [place] [address] 17 Oct, 2014 [facility] [address] [id number] [address] [place] [address], [place] [address] Oct, [facility] [address] [id number] [address] [place] [address], [place] [address] Oct, [facility] [address] [id number] [address] [place] [address], [place] [address] Sep, [facility] [address] [id number] [address] [place] [address], [place] [address] Sep, [facility] [address] [id number] [address] [place] [address], [place] [address] Sep, [facility] [address] [id number] [address] [place] [address], [place] [address] Sep, [facility] [address] [id number] [address] [place] [address], [place] [address] Sep, [facility] [address] [id number] [address] [place] [address], [place] [address] Sep, [facility] [address] [id number] [address] [place] [address], [place] [address] Sep, [facility] [address] [id number] [address] [place] [address], [place] [address] Sep, [facility] [address] [id number] [address] [place] [address], [place] [address] Sep, [facility] [address] [id number] [address] [place] [address], [place] [address] Sep, [facility] [address] [id number] [address] [place] [address], [place] [address] Sep, [facility] [address] [id number] [address] [place] [address], [place] [address] Sep, [facility] [address] [id number] [address] [place] [address] Aug, [facility] [address] [id number] [address] [place] [address], [place] [address] Aug, [facility] [address] [id number] [address] [place] [address], [place] [address] Aug, [facility] [address] [id number] [address] [place] [address], [place] [address] Aug, [facility] [address] [id number] [address] [place] [address], [place] [address] 28 Aug, 2013 [facility] [address] [id number] [address] [place] [address], [place] [address] 28 Aug, 2014 [facility] [address] [id number] [address] [place] [address], [place] [address] 17 Aug, 2014 [facility] [address] [id number] [address] [place] [address], [place] [address] 17 Aug, 2013 [facility] [address] [id number] [address] [place] [address], [place] [address] 30 Jul, 2013 [facility] [address] [id number] [address] [place] [address], [place] [address] 30 Jul, 2013 [facility] [address] [id number] [address] [place] [address], [place] [address] 30 Jul, 2013 [facility] [address] [id number] [address] [place] [address], [place] [address] 30 Jul, 2013 [facility] [address] [id number] [address] [place] [address], [place] [address] 25 Jul, 2013 [facility] [address] [id number] [address] [place] [address], [place] [address] 25 Jul, 2013 [facility] [address] [id number] [address] [place] [address], [place] [address] 15 Jul, 2013 [facility] [address] [id number] [address] [place] [address], [place] [address] 15 Jul, 2013 [facility] [address] [id number] [address] [place] [address], [place] [address] 11 Jul, 2013 [facility] [address] [id number] [address] [place] [address], [place] [address] 11 Jul, 2013 [facility] [address] [id number] [address] [place] [address], [place] [address] Jun, [facility] [address] [id number] [address] [place] [address], [place] [address] Jun, [facility] [address] [id number] [facility] [place] [address] Jun, [facility] [address] [id number] [facility] [place] [address] Jun, [facility] [address] [id number] [facility] [place] [address] Jun, [facility] [address] [id number] [facility] [place] [address] Jun, [facility] [address] [id number] [facility] [place] [address] Jun, [facility] [address] [id number] [address] [place] [address], [place] [address] Jun, [facility] [address] [id number] [address] [place] [address], [place] [address] Jun, [facility] [address] [id number] [address] [place] [address], [place] [address] Jun, [facility] [address] [id number] [address] [place] [address], [place] [address] Jun, [facility] [address] [id number] [address] [place] [address], [place] [address] Jun, [facility] [address] [id number] [address] [place] [address], [place] [address] Jun, [facility] [address] [id number] [address] [place] [address], [place] [address] Jun, [facility] [address] [id number] [address] [place] [address], [place] [address] Jun, [facility] [address] [id number] [address] [place] [address], [place] [address] Jun, [facility] [address] [id number] [address] [place] [address], [place] [address] Jun, [facility] [address] [id number] [address] [place] [address], [place] [address] Jun, [facility] [address] [id number] [facility] [place] [address] Jun, [facility] [address] [id number] [address] [place] [address], [place] [address] Jun, [facility] [address] [id number] [address] [place] [address], [place] [address] Jun, [facility] [address] [id number] [address] [place] [address], [place] [address] Jun, [facility] [address] [id number] [address] [place] [address], [place] [address] May, [facility] [address] [id number] [address] [place] [address], [place] [address] May, [facility] [address] [id number] [address] [place] [address], [place] [address] May, [facility] [address] [id number] [address] [place] [address], [place] [address] May, [facility] [address] [id number] [address] [place] [address], [place] [address] May, [facility] [address] [id number] [address] [place] [address], [place] [address] May, [facility] [address] [id number] [address] [place] [address], [place] [address] May, [facility] [address] [id number] [address] [place] [address], [place] [address] May, [facility] [address] [id number] [address] [place] [address], [place] [address] May, [facility] [address] [id number] [address] [place] [address], [place] [address] May, [facility] [address] [id number] [address] [place] [address], [place] [address] May, [facility] [address] [id number] [facility] [place] [address] May, [facility] [address] [id number] [facility] [place] [address] May, [facility] [address] [id number] [facility] [place] [address] Apr, [facility] [address] [id number] [address] [place] [address], [place] [address] Apr, [facility] [address] [id number] [address] [place] [address], [place] [address] Apr, [facility] [address] [id number] [address] [place] [address], [place] [address] Apr, [facility] [address] [id number] [address] [place] [address], [place] [address] Apr, [facility] [address] [id number] [address] [place] [address], [place] [address] Apr, [facility] [address] [id number] [address] [place] [address], [place] [address] Apr, [facility] [address] [id number] [address] [place] [address], [place] [address] Apr, [facility] [address] [id number] [address] [place] [address], [place] [address] Apr, [facility] [address] [id number] [address] [place] [address], [place] [address] March, [facility] [address] [id number] [address] [place] [address], [place] [address] March, [facility] [address] [id number] [address] [place] [address], [place] [address] March, [facility] [address] [id number] [address] [place] [address], [place] [address] March, [facility] [address] [id number] [address] [place] [address], [place] [address] March, [facility] [address] [id number] [address] [place] [address], [place] [address] March, [facility] [address] [id number] [address] [place] [address], [place] [address] March, [facility] [address] [id number] [address] [place] [address], [place] [address] March, [facility] [address] [id number] [address] [place] [address], [place] [address] March, [facility] [address] [id number] [address] [place] [address], [place] [address] March, [facility] [address] [id number] [address] [place] [address], [place] [address] March, [facility] [address] [id number] [address] [place] [address], [place] [address] March, [facility] [address] [id number] [address] [place] [address], [place] [address] March, [facility] [address] [id number] [address] [place] [address], [place] [address] March, [facility] [address] [id number] [address] [place] [address], [place] [address] March, [facility] [address] [id number] [address] [place] [address], [place] [address] March, [facility] [address] [id number] [address] [place] [address], [place] [address] March, [facility] [address] [id number] [address] [place] [address], [place] [address] March, [facility] [address] [id number] [address] [place] [address], [place] [address] March, [facility] [address] [id number] [address] [place] [address], [place] [address] March, [facility] [address] [id number] [address] [place] [address], [place] [address] Feb, [facility] [address] [id number] [facility] [place] [address] Feb, [facility] [address] [id number] [address] [place] [address], [place] [address] Feb, [facility] [address] [id number] [address] [place] [address], [place] [address] Feb, [facility] [address] [id number] [address] [place] [address], [place] [address] Feb, [facility] [address] [id number] [address] [place] [address], [place] [address] Feb, [facility] [address] [id number] [address] [place] [address], [place] [address] Feb, [facility] [address] [id number] [address] [place] [address], [place] [address] Feb, [facility] [address] [id number] [address] [place] [address], [place] [address] Jan, [facility] [address] [id number] [address] [place] [address], [place] [address] Jan, [facility] [address] [id number] [address] [place] [address], [place] [address] Jan, [facility] [address] [id number] [address] [place] [address], [place] [address] Jan, [facility] [address] [id number] [address] [place] [address], [place] [address] Jan, [facility] [address] [id number] [address] [place] [address], [place] [address] Jan, [facility] [address] [id number] [address] [place] [address], [place] [address] Jan, [facility] [address] [id number] [address] [place] [address], [place] [address] Jan, [facility] [address] [id number] [address] [place] [address], [place] [address] Jan, [facility] [address] [id number] [address] [place] [address], [place] [address] Jan, [facility] [address] [id number] [address] [place] [address], [place] [address] Dec, [facility] [address] [id number] [address] [place] [address], [place] [address] Dec, [facility] [address] [id number] [address] [place] [address], [place] [address] Dec, [facility] [address] [id number] [address] [place] [address], [place] [address] Dec, [facility] [address] [id number] [address] [place] [address], [place] [address] Dec, [facility] [address] [id number] [address] [place] [address], [place] [address] Dec, [facility] [address] [id number] [address] [place] [address], [place] [address] Dec, [facility] [address] [id number] [address] [place] [address], [place] [address] Dec, [facility] [address] [id number] [address] [place] [address], [place] [address] Nov, [facility] [address] [id number] [address] [place] [address], [place] [address] Nov, [facility] [address] [id number] [address] [place] [address], [place] [address] Nov, [facility] [address] [id number] [address] [place] [address], [place] [address] Nov, [facility] [address] [id number] [address] [place] [address], [place] [address] Nov, [facility] [address] [id number] [address] [place] [address], [place] [address] Nov, [facility] [address] [id number] [address] [place] [address], [place] [address] Nov, [facility] [address] [id number] [address] [place] [address], [place] [address] Nov, [facility] [address] [id number] [address] [place] [address], [place] [address] Nov, [facility] [address] [id number] [address] [place] [address], [place] [address] Nov, [facility] [address] [id number] [address] [place] [address], [place] [address] Nov, [facility] [address] [id number] [address] [place] [address], [place] [address] Nov, [facility] [address] [id number] [address] [place] [address], [place] [id number] Nov, [facility] [address] [id number] [address] [place] [address], [place] [address] Oct, [facility] [address] [id number] [address] [place] [address], [place] [address] Oct, [facility] [address] [id number] [address] [place] [address], [place] [address] Oct, [facility] [address] [id number] [address] [place] [address], [place] [address] Oct, [facility] [address] [id number] [address] [place] [address], [place] [address] Oct, [facility] [address] [id number] [address] [place] [address], [place] [address] Oct, [facility] [address] [id number] [address] [place] [address], [place] [address] Oct, [facility] [address] [id number] [address] [place] [address], [place] [address] Oct, [facility] [address] [id number] [address] [place] [address], [place] [address] 17 Oct, 2013 [facility] [address] [id number] [address] [place] [address], [place] [address] 17 Oct, 2013 [facility] [address] [id number] [address] [place] [address], [place] [address] 03 Oct, 2013 [facility] [address] [id number] [address] [place] [address], [place] [address] 03 Oct, 2013 [facility] [address] [id number] [address] [place] [address], [place] [address] 02 Oct, 2013 [facility] [address] [id number] [address] [place] [address], [place] [address] 02 Oct, 2013 [facility] [address] [id number] [address] [place] [address], [place] [address] 14 Sep, 2013 [facility] [address] [id number] [address] [place] [address], [place] [address] 14 Sep, 2013 [facility] [address] [id number] [address] [place] [address], [place] [address] Sep, [facility] [address] [id number] [address] [place] [address], [place] [address] Sep, [facility] [address] [id number] [address] [place] [address], [place] [address] Sep, [facility] [address] [id number] [address] [place] [address], [place] [address] Sep, [facility] [address] [id number] [address] [place] [address], [place] [address] Sep, [facility] [address] [id number] [address] [place] [address], [place] [address] Sep, [facility] [address] [id number] [address] [place] [address], [place] [address] Sep, [facility] [address] [id number] [address] [place] [address], [place] [address] Sep, [facility] [address] [id number] [address] [place] [address], [place] [address] Aug, [facility] [address] [id number] [address] [place] [address], [place] [address] Aug, [facility] [address] [id number] [address] [place] [address], [place] [address] Aug, [facility] [address] [id number] [address] [place] [address], [place] [address] Aug, [facility] [address] [id number] [address] [place] [address], [place] [address] Aug, [facility] [address] [id number] [address] [place] [address] Aug, [facility] [address] [id number] [address] [place] [address], [place] [address] Aug, [facility] [address] [id number] [address] [place] [address] Aug, [facility] [address] [id number] [address] [place] [address], [place] [address] Aug, [facility] [address] [id number] [address] [place] [address] Aug, [facility] [address] [id number] [address] [place] [address] Aug, [facility] [address] [id number] [address] [place] [address] Aug, [facility] [address] [id number] [address] [place] [address], [place] [address] Aug, [facility] [address] [id number] [address] [place] [address] Aug, [facility] [address] [id number] [address] [place] [address] 17 Aug, 2013 [facility] [address] [id number] [address] [place] [address], [place] [address] 14 Aug, 2013 [facility] [address] [id number] [address] [place] [address], [place] [address] 14 Aug, 2013 [facility] [address] [id number] [address] [place] [address], [place] [address] 01 Aug, 2013 [facility] [address] [id number] [address] [place] [address], [place] [address] 20 Jul, 2013 [facility] [address] [id number] [address] [place] [address], [place] [address] 19 Jul, 2013 [facility] [address] [id number] [address] [place] [address], [place] [address] 18 Jul, 2013 [facility] [address] [id number] [address] [place] [address], [place] [address] 11 Jul, 2013 [facility] [address] [id number] [address] [place] [address], [place] [address] 11 Jul, 2013 [facility] [address] [id number] [address] [place] [address], [place] [address] 28 Jun, 2013 [facility] [address] [id number] [address] [place] [address], [place] [address] Jun, [facility] [address] [id number] [address] [place] [address], [place] [address] Jun, [facility] [address] [id number] [address] [place] [address], [place] [address] 15 Jun, 2013 [facility] [address] [id number] [address] [place] [address], [place] [address] 14 Jun, 2013 [facility] [address] [id number] [address] [place] [address], [place] [address] Jun, [facility] [address] [id number] [address] [place] [address], [place] [address] 12 Jun, 2013 [facility] [address] [id number] [address] [place] [address], [place] [address] 08 Jun, 2013 [facility] [address] [id number] [address] [place] [address], [place] [address] Jun, [facility] [address] [id number] [address] [place] [address], [place] [address] Jun, [facility] [address] [id number] [address] [place] [address], [place] [address] May, [facility] [address] [id number] [address] [place] [address], [place] [address] May, [facility] [address] [id number] [address] [place] [address], [place] [address] May, [facility] [address] [id number] [address] [place] [address], [place] [address] May, [facility] [address] [id number] [address] [place] [address], [place] [address] May, [facility] [address] [id number] [address] [place] [address], [place] [address] May, [facility] [address] [id number] [address] [place] [address], [place] [address] May, [facility] [address] [id number] [address] [place] [address], [place] [address] May, [facility] [address] [id number] [address] [place] [address], [place] [address] May, [facility] [address] [id number] [address] [place] [address], [place] [address] Apr, [facility] [address] [id number] [address] [place] [address], [place] [address] Apr, [facility] [address] [id number] [address] [place] [address], [place] [address] Apr, [facility] [address] [id number] [address] [place] [address], [place] [address] Apr, [facility] [address] [id number] [address] [place] [address], [place] [address] Apr, [facility] [address] [id number] [address] [place] [address], [place] [address] Apr, [facility] [address] [id number] [address] [place] [address], [place] [address] Apr, [facility] [address] [id number] [address] [place] [address], [place] [address] March, [facility] [address] [id number] [address] [place] [address], [place] [address] Feb, [facility] [address] [id number] [address] [place] [address], [place] [address] Feb, [facility] [address] [id number] [address] [place] [address], [place] [address] Feb, [facility] [address] [id number] [address] [place] [address], [place] [address] Jan, [facility] [address] [id number] [address] [place] [address], [place] [address] Jan, [facility] [address] [id number] [address] [place] [address], [place] [address] Jan, [facility] [address] [id number] [address] [place] [address], [place] [address] Jan, [facility] [address] [id number] [address] [place] [address], [place] [address] Jan, [facility] [address] [id number] [address] [place] [address], [place] [address] 08 Jan, 2013 [facility] [address] [id number] [address] [place] [address], [place] [address] 07 Jan, 2013 [facility] [address] [id number] [address] [place] [address], [place] [address] 04 Jan, 2013 [facility] [address] [id number] [address] [place] [address], [place] [address] 28 Dec, 2012 [facility] [address] [id number] [address] [place] [address], [place] [address] 25 Dec, 2012 [facility] [address] [id number] [address] [place] [address], [place] [address] 13 Dec, 2012 [facility] [address] [id number] [address] [place] [address], [place] [address] 11 Dec, 2012 [facility] [address] [id number] [address] [place] [address], [place] [address] 07 Dec, 2012 [facility] [address] [id number] [address] [place] [address], [place] [address] 06 Dec, 2012 [facility] [address] [id number] [address] [place] [address], [place] [address] 05 Dec, 2012 [facility] [address] [id number] [address] [place] [address], [place] [address] Nov, [facility] [address] [id number] [address] [place] [address], [place] [address] 24 Nov, 2012 [facility] [address] [id number] [address] [place] [address], [place] [address] Nov, [facility] [address] [id number] [address] [place] [address], [place] [address] 15 Nov, 2012 [facility] [address] [id number] [address] [place] [address], [place] [address] Nov, [facility] [address] [id number] [address] [place] [address], [place] [address] Nov, [facility] [address] [id number] [address] [place] [address], [place] [address] Nov, [facility] [address] [id number] [address] [place] [address], [place] [address] Oct, [facility] [address] [id number] [address] [place] [address], [place] [address] Oct, [facility] [address] [id number] [address] [place] [address], [place] [address] Oct, [facility] [address] [id number] [address] [place] [address], [place] [address] Oct, [facility] [address] [id number] [address] [place] [address], [place] [address] Oct, [facility] [address] [id number] [address] [place] [address], [place] [address] Oct, [facility] [address] [id number] [address] [place] [address], [place] [address] Oct, [facility] [address] [id number] [address] [place] [address], [place] [address] Oct, [facility] [address] [id number] [address] [place] [address], [place] [address] Oct, [facility] [address] [id number] [address] [place] [address], [place] [address] Oct, [facility] [address] [id number] [address] [place] [address], [place] [address] Oct, [facility] [address] [id number] [address] [place] [address], [place] [address] Oct, [facility] [address] [id number] [address] [place] [address], [place] [address] Sep, [facility] [address] [id number] [address] [place] [address], [place] [address] Sep, [facility] [address] [id number] [address] [place] [address], [place] [address] Sep, [facility] [address] [id number] [address] [place] [address], [place] [address] Sep, [facility] [address] [id number] [address] [place] [address], [place] [address] Sep, [facility] [address] [id number] [address] [place] [address], [place] [address] Sep, [facility] [address] [id number] [address] [place] [address], [place] [address] Sep, [facility] [address] [id number] [address] [place] [address], [place] [address] Sep, [facility] [address] [id number] [address] [place] [address], [place] [address] Sep, [facility] [address] [id number] [address] [place] [address], [place] [address] Sep, [facility] [address] [id number] [address] [place] [address], [place] [address] Sep, [facility] [address] [id number] [address] [place] [address], [place] [address] Aug, [facility] [address] [id number] [address] [place] [address], [place] [address] Aug, [facility] [address] [id number] [address] [place] [address], [place] [address] Aug, [facility] [address] [id number] [address] [place] [address], [place] [address] Aug, [facility] [address] [id number] [address] [place] [address], [place] [address] Aug, [facility] [address] [id number] [address] [place] [address], [place] [address] Aug, [facility] [address] [id number] [address] [place] [address], [place] [address] Aug, [facility] [address] [id number] [address] [place] [address] Aug, [facility] [address] [id number] [address] [place] [address], [place] [address] Aug, [facility] [address] [id number] [address] [place] [address], [place] [address] Aug, [facility] [address] [id number] [address] [place] [address], [place] [address] Jul, [facility] [address] [id number] [address] [place] [address], [place] [address] Jul, [facility] [address] [id number] [address] [place] [address], [place] [address] Jul, [facility] [address] [id number] [address] [place] [address], [place] [address] Jul, [facility] [address] [id number] [address] [place] [address], [place] [address] Jun, [facility] [address] [id number] [address] [place] [address], [place] [address] Jun, [facility] [address] [id number] [address] [place] [address], [place] [address] Jun, [facility] [address] [id number] [address] [place] [address], [place] [address] Jun, [facility] [address] [id number] [address] [place] [address], [place] [address] Jun, [facility] [address] [id number] [address] [place] [address], [place] [address] Jun, [facility] [address] [id number] [address] [place] [address], [place] [address] Jun, [facility] [address] [id number] [address] [place] [address], [place] [address] May, [facility] [address] [id number] [address] [place] [address], [place] [address] May, [facility] [address] [id number] [address] [place] [address], [place] [address] May, [facility] [address] [id number] [address] [place] [address], [place] [address] May, [facility] [address] [id number] [address] [place] [address], [place] [address] May, [facility] [address] [id number] [address] [place] [address], [place] [address] Apr, [facility] [address] [id number] [address] [place] [address], [place] [address] Apr, [facility] [address] [id number] [address] [place] [address], [place] [address] Apr, [facility] [address] [id number] [address] [place] [address], [place] [address] Apr, [facility] [address] [id number] [address] [place] [address], [place] [address] Apr, [facility] [address] [id number] [address] [place] [address], [place] [address] March, [facility] [address] [id number] [address] [place] [address], [place] [address] March, [facility] [address] [id number] [address] [place] [address], [place] [address] March, [facility] [address] [id number] [address] [place] [address], [place] [address] March, [facility] [address] [id number] [address] [place] [address], [place] [address] March, [facility] [address] [id number] [address] [place] [address], [place] [address] March, [facility] [address] [id number] [address] [place] [address], [place] [address] March, [facility] [address] [id number] [address] [place] [address], [place] [address] March, [facility] [address] [id number] [address] [place] [address], [place] [address] March, [facility] [address] [id number] [address] [place] [address], [place] [address] March, [facility] [address] [id number] [address] [place] [address], [place] [address] Feb, [facility] [address] [id number] [facility] [place] [address] 27 Feb, 2012 [facility] [address] [id number] [address] [place] [address], [place] [address] 26 Feb, 2012 [facility] [address] [id number] [address] [place] [address], [place] [address] Feb, [facility] [address] [id number] [address] [place] [address], [place] [address] Feb, [facility] [address] [id number] [address] [place] [address], [place] [address] Feb, [facility] [address] [id number] [address] [place] [address], [place] [address] Feb, [facility] [address] [id number] [address] [place] [address], [place] [address] Feb, [facility] [address] [id number] [address] [place] [address], [place] [address] Feb, [facility] [address] [id number] [address] [place] [address], [place] [address] Jan, [facility] [address] [id number] [address] [place] [address], [place] [address] Jan, [facility] [address] [id number] [address] [place] [address], [place] [address] Jan, [facility] [address] [id number] [address] [place] [address], [place] [address] Jan, [facility] [address] [id number] [address] [place] [address], [place] [address] Dec, [facility] [address] [id number] [address] [place] [address], [place] [address] Dec, [facility] [address] [id number] [address] [place] [address], [place] [address] Nov, [facility] [address] [id number] [address] [place] [address], [place] [address] Nov, [facility] [address] [id number] [address] [place] [id number] Nov, [facility] [address] [id number] [address] [place] [id number] Nov, [facility] [address] [id number] [address] [place] [id number] Nov, [facility] [address] [id number] [address] [place] [id number] Oct, [facility] [address] [id number] [address] [place] [id number] Oct, [facility] [address] [id number] [address] [place] [id number] Oct, [facility] [address] [id number] [address] [place] [id number] Oct, [facility] [address] [id number] [address] [place] [id number] Oct, [facility] [address] [id number] [address] [place] [id number] Oct, [facility] [address] [id number] [address] [place] [id number] Oct, [facility] [address] [id number] [address] [place] [id number] Oct, [facility] [address] [id number] [address] [place] [id number] Sep, IMMUNIZATIONS No Known Immunizations SOCIAL HISTORY Never Assessed REASON FOR VISIT PLAN OF CARE VITAL SIGNS Height 62 in 2013-07-01 Weight 170.1 lbs 2013-07-01 Temperature 98 degrees Fahrenheit 2013-07-01 Heart Rate 100 bpm 2013-07-01 Respiratory Rate 20 2013-07-01 Blood pressure systolic 150 mmHg 2013-07-01 Blood pressure diastolic 98 mmHg 2013-07-01 MEDICATIONS Unknown Medications RESULTS No Results PROCEDURES Procedure Date Ordered Result Body Site ALBUTEROL INHAL UNIT DOSE 1 MG Jul 01, 2013 MEASURE BLOOD OXYGEN LEVEL Jul 01, 2013 INSTRUCTIONS MEDICATIONS ADMINISTERED No Known Medications [...] information Hospitalization History [facility]- Urosepsis, ab d pain and fever, discharged 11/27/2017 11/26/2017 Hospitalization History [facility]- Went Unrepsonsive, Hit head 2017 Hospitalization History [facility]- Back Pain 05/05/ 8
--- OUTSIDE RECORDS SUMMARY | 2020-06-18 15:41 | XMS REPORT ---
Author Author Sanjuanita Abdul Doctor Organization [facility] Address Unknown Phone Unavailable Care Team Providers Care Vice President Of Consulting Services Name Role Phone Migration, Doctor Unavailable Unavailable PROBLEMS Type Condition ICD9-CM Code [id number] Code Onset Dates Condition S tatus SNOMED Code Problem Hypertension I10 Active 4191103 3 Problem Hyperlipidemia E78.5 Active 34351 004 Problem Coronary artery disease I25.10 Active 15014380 Problem Low back pain M54.5 Active 511709 009 Problem Other chronic pain G89.29 Active 8 2073367 Problem Ventral hernia without obstruction or gangrene K43 .9 Active 562157800 Problem Type 2 diabetes mellitus wit hout complication, without long-term current use of insulin E11.9 Active 100844322 Problem Anxiety F41.9 Active 43931486 Problem Peripheral vascular disease I73.9 Ac tive 048976188 Problem Insomnia G47.00 Active 231428309 Problem Microcytic anemia D50.9 Active 23 9121183 Problem Pharyngeal dysphagia R13.13 Active 18702543165651 Problem Other iron deficiency anemia D50.8 A ctive 79245969 Problem Reactive depression F32.9 Active 93738315 Problem Paroxysmal atrial fibrillation I48.0 Active 302600060 Problem Postmenopausal atrophic vaginitis N95.2 Active 30628509 Problem Encounter for suprapubic catheter care Z43.5 Active 809973864 Problem Neurogenic bladder N31.9 Active 3 [id number] ALLERGIES No Information ENCOUNTERS Encounter Location Date Diagnosis [place] [address] [facility] [id number] [address] [place] [id number] 17 Apr, 2020 Anxiety F41.9 and Strain of right shoulder, subsequent encounter S46.911D [place] [address] [id number] [address] [place] [id number] 04 Apr, 2020 [facility] [address] [facility] [id number] [address] [place] [phone] March, [facility] [address] [id number] [address] [place] [phone] March, Anxiety F41.9 and Strain of right shoulder, subsequent encounter S46.911D [facility] [address] [id number] [address] [place], [place] [phone] Feb, Anxiety F41.9 and Strain of right shoulder, subsequent encounter S46.911D [facility] [address] [id number] [address] [place] [phone] Jan, Anxiety F41.9 and Strain of right shoulder, subsequent encounter S46.911D [facility] [address] [id number] [address] [place] [phone] Jan, [facility] [address] [place] [id number] Jan, Neurogenic bladder N31.9 [facility] [address] [id number] [address] [place] [id number] Dec, [facility] [address] [id number] [address] [place] [phone] Dec, [facility] [address] [id number] [address] [place] [id number] Dec, Anxiety F41.9 and Strain of right shoulder, subsequent encounter S46.911D [facility] [address] [id number] [address] [place] [id number] 10 Dec, 2019 Other iron deficiency anemia D50.8 [facility] [address] [id number] [address] [place] [id number] Dec, Via [facility] [address] [place] [id number] Dec, Encounter for suprapubic catheter care Z 43.5 and Microcytic anemia D50.9 [facility] [address] [id number] [address] [place] [phone] Dec, [facility] [address] [id number] [address] [place] [phone] Nov, Anxiety F41.9 and Strain of right shoulder, subsequent encounter S46.911D [facility] [address] [id number] [address] [place] [phone] Nov, Hypertension I10 [facility] [address] [place] [id number] Nov, Pneumonia of both lungs due to infectiou s organism, unspecified part of lung J18.9 and Suprapubic catheter Z93.59 [place] [address] [id number] [address] [place] [phone] Nov, Hypertension I10 and Reactiv e depression F32.9 [place] [address] [id number] [address] [place] [phone] Oct, Strain of right shoulder, scherer bsequent encounter S46.911D and Anxiety F41.9 [place] [address] [id number] [address] [place] [phone] Oct, Via [facility] [address] [place] [id number] Oct, Suprapubic catheter Z93.59 and Candidias is, intertriginous B37.2 [facility] [address] [id number] [address] [place] [phone] Oct, Suprapubic catheter Z93.59 [facility] [address] [id number] [address] [place] [phone] Oct, Anxiety F41.9 and Strain of right shoulder, subsequent encounter S46.911D [facility] [address] [id number] [address] [place] [phone] Sep, [place] [address] [id number] [address] [place] [phone] Sep, [place] [address] [id number] [address] [place] [phone] Sep, Via [facility] [employer] [address] [place] [id number] Sep, Suprapubic catheter Z93.59 [facility] [address] [id number] [address] [place] [phone] Sep, Anxiety F41.9 and Strain of right shoulder, subsequent encounter S46.911D [facility] [address] [id number] [address] [place] [phone] Aug, [facility] [address] [id number] [address] [place] [id number] Aug, [facility] [address] [id number] [address] [place] [phone] Aug, Anxiety F41.9 and Strain of right shoulder, subsequent encounter S46.911D [facility] [address] [place] [facility] [place] [id number] Aug, Suprapubic catheter Z93.59 [facility] [address] [id number] [address] [place] [id number] Jul, Strain of right shoulder, scherer bsequent encounter S46.911D and Anxiety F41.9 [facility] [address] [id number] [address] [place] [phone] Jul, Anxiety F41.9 [facility] [address] [id number] [address] [place] [phone] Jun, [facility] [address] [id number] [address] [place] [phone] Jun, [facility] [address] [id number] [address] [place] [phone] Jun, [facility] [address] [id number] [address] [place] [phone] Jun, Strain of right shoulder, scherer bsequent encounter S46.911D [facility] [address] [id number] [address] [place] [phone] Jun, Strain of right shoulder, scherer bsequent encounter S46.911D [place] [address] [id number] [address] [place] [id number] Jun, Anxiety F41.9 [facility] [address] [place] [id number] Jun, Neurogenic bladder N31.9 and Anxiety F41 .9 [facility] [address] [place] [id number] May, Anxiety F41.9 [place] [address] [id number] [address] [place] [phone] May, Dysuria R30.0 [place] [address] [id number] [address] [place] [phone] May, Strain of right shoulder, scherer bsequent encounter S46.911D and Anxiety F41.9 [place] [address] [id number] [address] [place] [id number] Apr, [facility] [address] [place] [id number] Apr, Strain of right shoulder, subsequent enc ounter S46.911D [place] [address] [id number] [address] [place] [id number] 14 Apr, 2019 Strain of right shoulder, scherer bsequent encounter S46.911D and Anxiety F41.9 [facility] [address] [place] [id number] 13 Apr, 2019 Type 2 diabetes mellitus without complic ation, without long-term current use of insulin E11.9 and Neurogenic bladder N31.9 [facility] [address] [place] [id number] Apr, Strain of right shoulder, subsequent enc ounter S46.911D ; History of GI bleed Z87.19 ; Neurogenic bladder N31.9 and Reactive depression F32.9 [place] [address] [id number] [address] [place] [id number] 10 Apr, 2019 Acute pain of left shoulder M25.512 [place] [address] [id number] [address] [place] [phone] Apr, [facility] [address] [id number] [address] [place] [phone] Apr, Anxiety F41.9 and Other lacquer shader 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 [facility] [address] [place] [id number] March, Gastrointestinal hemorrhage associated w ith acute gastritis K29.01 [facility] [address] [id number] [address] [place] [phone] March, Via [facility] [address] [place] [id number] March, Bronchitis J40 [facility] [address] [id number] [address] [place] [id number] March, Cough R05 [facility] [address] [id number] [address] [place] [phone] March, Other chronic pain G89.29 [facility] [address] [id number] [address] [place] [phone] March, Anxiety F41.9 [facility] [address] [id number] [address] [place] [phone] March, [facility] [address] [id number] [address] [place] [phone] Feb, Other chronic pain G89.29 [facility] [address] [id number] [address] [place] [phone] Feb, Anxiety F41.9 [facility] [address] [id number] [address] [place] [phone] Feb, Other chronic pain G89.29 [facility] [employer] [address] [place] [id number] Feb, Neurogenic bladder N31.9 and Suprapubic catheter Z93.59 [facility] [address] [id number] [address] [place] [phone] Jan, Anxiety F41.9 [facility] [address] [id number] [address] [place] [phone] Dec, Anxiety F41.9 [facility] [address] [id number] [address] [place] [phone] Dec, Other chronic pain G89.29 an d Anxiety F41.9 [facility] [address] [id number] [address] [place] [phone] Dec, Via [facility] [address] [place] [id number] Dec, Neurogenic bladder N31.9 and Suprapubic catheter Z93.59 [facility] [address] [id number] [address] [place] [phone] Nov, Other chronic pain G89.29 an d Anxiety F41.9 [facility] [address] [id number] [address] [place] [phone] Nov, Via [facility] [address] [place] [id number] Nov, Suprapubic catheter Z93.59 [facility] [address] [id number] [address] [place] [phone] Oct, Other chronic pain G89.29 an d Anxiety F41.9 [facility] [address] [id number] [address] [place] [id number] Oct, [facility] [address] [id number] [address] [place] [phone] Oct, Suprapubic catheter Z93.59 [facility] [address] [id number] [address] [place] [phone] Oct, Via [facility] [address] [place] [id number] Oct, [facility] [address] [id number] [address] [place] [phone] Oct, Anxiety F41.9 [facility] [address] [id number] [address] [place] [id number] Oct, Anxiety F41.9 [facility] [address] [place] [id number] Oct, Other chronic pain G89.29 [facility] [address] [id number] [address] [place] [phone] Sep, Other chronic pain G89.29 Via [facility] [address] [place] [id number] Sep, Suprapubic catheter Z93.59 and Cervicalg ia M54.2 [facility] [address] [id number] [address] [place] [phone] Sep, [facility] [address] [id number] [address] [place] [phone] Sep, [facility] [address] [id number] [address] [place] [phone] Sep, Via [facility] [address] [place] [id number] Aug, Cystitis N30.90 [facility] [address] [id number] [address] [place] [phone] Aug, [facility] [address] [id number] [address] [place] [phone] Aug, Other chronic pain G89.29 [facility] [address] [id number] [address] [place] [phone] Aug, Via [facility] [address] [place] [id number] Aug, Encounter for suprapubic catheter care Z 43.5 [facility] [address] [id number] [address] [place] [phone] Jul, Via [facility] [address] [place] [id number] Jul, [facility] [address] [id number] [address] [place] [phone] Jul, Other chronic pain G89.29 [facility] [address] [id number] [address] [place] [phone] Jul, [facility] [address] [id number] [address] [place] [phone] Jul, [facility] [address] [place] [id number] Jun, Postmenopausal atrophic vaginitis N95.2 [facility] [address] [id number] [address] [place] [phone] Jun, Other chronic pain G89.29 [facility] [address] [id number] [address] [place] [phone] Jun, Via [facility] [address] [place] [id number] May, Anxiety F41.9 ; Type 2 diabetes mellitus without complication, without long-term current use of insulin E11.9 ; Hypertension I10 ; Low back pain M54.5 ; Paroxysmal atrial fibrillation I48.0 and 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 [facility] [address] [id number] [address] [place] [phone] May, Other chronic pain G89.29 [facility] [address] [place] [id number] May, Low back pain M54.5 [facility] [address] [id number] [address] [place] [phone] May, [facility] [address] [id number] [address] [place] [phone] Apr, Other chronic pain G89.29 [facility] [address] [id number] [address] [place] [phone] Apr, [facility] [address] [id number] [address] [place] [phone] Apr, Via [facility] [address] [place] [id number] Apr, Closed compression fracture of L3 lumbar vertebra with routine healing, subsequent encounter S32.030D [facility] [employer] [employer] [address] [place] [id number] 14 Apr, 2018 Low back pain M54.5 [facility] [address] [place] [id number] 12 Apr, 2018 Coccydynia M53.3 [facility] [address] [id number] [address] [place] [phone] March, [facility] [address] [id number] [address] [place] [phone] March, Other chronic pain G89.29 [facility] [address] [id number] [address] [place] [phone] March, [facility] [address] [id number] [address] [place] [id number] March, [facility] [address] [id number] [address] [place] [phone] Feb, [facility] [address] [id number] [address] [place] [phone] Feb, Other chronic pain G89.29 Via [facility] [address] [place] [id number] Feb, Other chronic pain G89.29 and Anxiety F4 1.9 [facility] [address] [id number] [address] [place] [phone] Feb, [facility] [address] [id number] [address] [place] [phone] Jan, [facility] [address] [id number] [address] [place] [phone] Jan, [facility] [address] [id number] [address] [place] [phone] Jan, [facility] [address] [id number] [address] [place] [phone] Jan, [facility] [address] 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 [id number] [address] [place] [phone] Nov, [facility] [address] [id number] [place] [id number] Nov, Anxiety F41.9 Via [facility] [address] [place] [id number] Nov, Status post surgery Z98.890 ; Confused R 41.0 ; Anxiety F41.9 and Other chronic pain G89.29 [facility] [address] [id number] [place] [id number] Nov, Other chronic pain G89.29 [facility] [address] [facility] [id number] [address] [place] [phone] Oct, [facility] [address] [id number] [place] [id number] Oct, Other chronic pain G89.29 [facility] [address] [facility] [id number] [address] [place] [id number] Oct, Anxiety F41.9 [facility] [address] [id number] [place] [id number] Sep, Other chronic pain G89.29 [facility] [address] [id number] [place] [id number] Sep, Via [facility] [address] [place] [id number] Aug, Dysuria R30.0 and Anxiety F41.9 [facility] [address] [id number] [address] [place] [phone] Aug, [facility] [address] [id number] [place] [id number] Aug, Other chronic pain G89.29 [facility] [address] [id number] [address] [place] [phone] Jul, Other chronic pain G89.29 [facility] [address] [id number] [place] [id number] Jun, [facility] [address] [id number] [place] [id number] Jun, Other chronic pain G89.29 [facility] [address] [id number] [address] [place] [phone] Jun, [facility] [address] [id number] [address] [place] [phone] May, Other chronic pain G89.29 [facility] [address] [id number] [address] [place] [phone] Apr, Other chronic pain G89.29 Via [facility] [address] [place] [id number] Apr, Reactive depression F32.9 and Pharyngeal dysphagia R13.13 [facility] [address] [id number] [address] [place] [phone] Apr, Urinary tract infection with out hematuria, site unspecified N39.0 [facility] [address] [id number] [address] [place] [phone] March, Other chronic pain G89.29 [facility] [address] [id number] [address] [place] [phone] Feb, Other chronic pain G89.29 [facility] [address] [id number] [address] [place] [phone] Feb, [facility] [address] [id number] [place] [facility] [place] [id number] Feb, [facility] [place] [facility] [address] [place] [id number] Feb, Dysuria R30.0 and Ventral hernia without obstruction or gangrene K43.9 [facility] [address] [id number] [address] [place] [phone] Jan, Other chronic pain G89.29 [facility] [address] [id number] [place] [id number] Dec, Other chronic pain G89.29 [facility] [address] [facility] [id number] [address] [place] [id number] Nov, Other chronic pain G89.29 [facility] [employer] [address] [place] [id number] Nov, Lymphadenitis I88.9 [facility] [address] [facility] [id number] [address] [place] [phone] Nov, Other chronic pain G89.29 [facility] [address] [facility] [id number] [address] [place] [id number] Nov, [facility] [address] [id number] [place] [id number] Nov, Other chronic pain G89.29 [facility] [employer] [employer] [address] [place] [id number] Oct, Low back pain M54.5 ; Hypertension I10 a nd Type 2 diabetes mellitus without complication, without long-term current use of insulin E11.9 [facility] [address] [facility] [id number] [address] [place] [phone] Oct, [facility] [address] [id number] [address] [place] [phone] Oct, [facility] [address] [id number] [address] [place] [id number] Oct, [facility] [address] [id number] [address] [place] [phone] Oct, [facility] [address] [id number] [address] [place] [id number] Sep, [facility] [address] [id number] [address] [place] [phone] Sep, [facility] [address] [id number] [address] [place] [id number] Aug, Other chronic pain G89.29 [facility] [address] [id number] [address] [place] [phone] Jul, [facility] [address] [id number] [address] [place] [id number] Jul, [facility] [address] [id number] [address] [place] [id number] Jul, [facility] [address] [id number] [address] [place] [phone] Jun, [facility] [address] [id number] [address] [place] [id number] Jun, [facility] [address] [place] [id number] Jun, Low back pain M54.5 ; Other chronic pain G89.29 and Coronary artery disease I25.10 [facility] [address] [id number] [address] [place] [id number] Jun, [facility] [address] [id number] [address] [place] [id number] May, [facility] [address] [id number] [address] [place] [phone] May, [facility] [address] [id number] [address] [place] [id number] 13 May, 2016 Other chronic pain G89.29 [facility] [address] [id number] [address] [place] [id number] 13 May, 2016 [facility] [address] [id number] [address] [place] [id number] 28 Apr, 2016 [facility] [address] [id number] [address] [place] [id number] 17 Apr, 2016 Acute cystitis without hemat uria N30.00 [facility] [address] [id number] [address] [place] [id number] 16 Apr, 2016 Acute cystitis without hemat uria N30.00 ; Coronary artery disease I25.10 ; Low back pain M54.5 and Other chronic pain G89.29 [facility] [address] [id number] [address] [place] [id number] 13 Apr, 2016 Other chronic pain G89.29 [facility] [address] [id number] [address] [place] [id number] March, Other chronic pain G89.29 [facility] [address] [id number] [address] [place] [phone] 18 Feb, 2016 [facility] [address] [id number] [address] [place] [id number] 15 Feb, 2016 Arthritis M19.90 [facility] [address] [id number] [address] [place] [id number] Feb, [facility] [address] [id number] [address] [place] [id number] 30 Jan, 2016 [facility] [address] [id number] [address] [place] [phone] Jan, [facility] [address] [id number] [address] [place] [id number] Jan, Other chronic pain G89.29 [facility] [address] [id number] [address] [place] [phone] Jan, Hypertension I10 ; Coronary artery disease I25.10 and Insomnia G47.00 [facility] [address] [id number] [address] [place] [phone] Jan, [facility] [address] [id number] [address] [place] [phone] Dec, Right hip pain M25.551 [facility] [address] [id number] [address] [place] [phone] Dec, [facility] [address] [id number] [address] [place] [phone] Dec, [facility] [address] [id number] [address] [place] [phone] Dec, [facility] [address] [id number] [address] [place] [id number] Dec, Other chronic pain G89.29 [facility] [address] [id number] [address] [place] [id number] Dec, [facility] [address] [id number] [address] [place] [phone] Nov, [facility] [address] [id number] [address] [place] [id number] Nov, Other chronic pain G89.29 [facility] [address] [id number] [address] [place] [id number] Nov, Right hip pain M25.551 and C oronary artery disease I25.10 [facility] [address] [id number] [address] [place] [id number] Nov, Other chronic pain G89.29 [facility] [address] [id number] [address] [place] [id number] Oct, [facility] [address] [facility] [id number] [address] [place] [phone] Oct, [facility] [address] [id number] [address] [place] [phone] Sep, [facility] [address] [id number] [address] [place] [phone] Sep, [facility] [address] [id number] [address] [place] [phone] Aug, [facility] [address] [id number] [address] [place] [phone] Aug, Hypertension I10 ; Coronary artery disease I25.10 and Arthritis M19.90 [facility] [address] [id number] [address] [place] [phone] Jun, [facility] [address] [facility] [id number] [address] [place] [phone] Jun, Essential hypertension, jayson gn 401.1 ; Other chronic pain 338.29 and Chronic airway obstruction, not elsewhere classified 496 [facility] [address] [id number] [address] [place] [phone] Jun, [facility] [address] [id number] [address] [place] [phone] Jun, [facility] [address] [facility] [id number] [address] [place] [phone] Jun, [facility] [address] [id number] [address] [place] [phone] May, [facility] [address] [id number] [address] [place] [phone] May, [facility] [address] [id number] [address] [place] [phone] Apr, [facility] [address] [id number] [address] [place] [id number] Apr, [facility] [address] [id number] [address] [place] [phone] Apr, [facility] [address] [id number] [address] [place] [address], [place] [address] March, [facility] [address] [id number] [address] [place] [address], [place] [address] March, [facility] [address] [id number] [address] [place] [address], [place] [address] March, [facility] [address] [id number] [address] [place] [address], [place] [address] March, [facility] [address] [id number] [address] [place] [address], [place] [address] March, Sialadenitis 527.2 [facility] [address] [id number] [address] [place] [address], [place] [address] Feb, [facility] [address] [id number] [address] [place] [address], [place] [address] Feb, [facility] [address] [id number] [address] [place] [address], [place] [address] Feb, [facility] [address] [id number] [address] [place] [address], [place] [address] Feb, [facility] [address] [id number] [address] [place] [address], [place] [address] Feb, [facility] [address] [id number] [address] [place] [address], [place] [address] Jan, [facility] [address] [id number] [address] [place] [phone] Jan, [facility] [address] [id number] [address] [place] [address], [place] [address] Jan, [facility] [address] [id number] [address] [place] [address], [place] [address] Jan, [facility] [address] [id number] [address] [place] [address], [place] [address] Jan, [facility] [address] [id number] [address] [place] [phone] Jan, [facility] [address] [id number] [address] [place] [address], [place] [address] Dec, [facility] [address] [id number] [address] [place] [address], [place] [address] Dec, [facility] [address] [id number] [address] [place] [address], [place] [address] Dec, [facility] [address] [id number] [address] [place] [address], [place] [address] Dec, [facility] [address] [id number] [address] [place] [address], [place] [address] Dec, [facility] [address] [id number] [address] [place] [address], [place] [address] Dec, [facility] [address] [id number] [address] [place] [address], [place] [address] Nov, [facility] [address] [id number] [address] [place] [address], [place] [address] Nov, [facility] [address] [id number] [address] [place] [address], [place] [address] Nov, [facility] [address] [id number] [address] [place] [address], [place] [address] Nov, [facility] [address] [id number] [address] [place] [address], [place] [address] Nov, [facility] [address] [id number] [address] [place] [address], [place] [address] Nov, [facility] [address] [id number] [address] [place] [address], [place] [address] Nov, [facility] [address] [id number] [address] [place] [address], [place] [address] Nov, [facility] [address] [id number] [address] [place] [address], [place] [address] Nov, [facility] [address] [id number] [address] [place] [address], [place] [address] Nov, [facility] [address] [id number] [address] [place] [address], [place] [address] Nov, [facility] [address] [id number] [address] [place] [address], [place] [address] Nov, [facility] [address] [id number] [address] [place] [address], [place] [address] Nov, [facility] [address] [id number] [address] [place] [address], [place] [address] Nov, [facility] [address] [id number] [address] [place] [address], [place] [address] Oct, [facility] [address] [id number] [address] [place] [address], [place] [address] Oct, [facility] [address] [id number] [address] [place] [address], [place] [address] Oct, [facility] [address] [id number] [address] [place] [address], [place] [address] Oct, [facility] [address] [id number] [address] [place] [address], [place] [address] Oct, [facility] [address] [id number] [address] [place] [address], [place] [address] 17 Oct, 2014 [facility] [address] [id number] [address] [place] [address], [place] [address] 17 Oct, 2014 [facility] [address] [id number] [address] [place] [address], [place] [address] Oct, [facility] [address] [id number] [address] [place] [address], [place] [address] Oct, [facility] [address] [id number] [address] [place] [address], [place] [address] Sep, [facility] [address] [id number] [address] [place] [address], [place] [address] Sep, [facility] [address] [id number] [address] [place] [address], [place] [address] Sep, [facility] [address] [id number] [address] [place] [address], [place] [address] Sep, [facility] [address] [id number] [address] [place] [address], [place] [address] Sep, [facility] [address] [id number] [address] [place] [address], [place] [address] Sep, [facility] [address] [id number] [address] [place] [address], [place] [address] Sep, [facility] [address] [id number] [address] [place] [address], [place] [address] Sep, [facility] [address] [id number] [address] [place] [address], [place] [address] Sep, [facility] [address] [id number] [address] [place] [address], [place] [address] Sep, [facility] [address] [id number] [address] [place] [address], [place] [address] Sep, [facility] [address] [id number] [address] [place] [address], [place] [address] Sep, [facility] [address] [id number] [address] [place] [address], [place] [address] Aug, [facility] [address] [id number] [address] [place] [address], [place] [address] Aug, [facility] [address] [id number] [address] [place] [address], [place] [address] Aug, [facility] [address] [id number] [address] [place] [address], [place] [address] Aug, [facility] [address] [id number] [address] [place] [address], [place] [address] Aug, [facility] [address] [id number] [address] [place] [address], [place] [address] 28 Aug, 2014 [facility] [address] [id number] [address] [place] [address], [place] [address] Aug, [facility] [address] [id number] [address] [place] [address], [place] [address] 17 Aug, 2014 [facility] [address] [id number] [address] [place] [address], [place] [address] 30 Jul, 2013 [facility] [address] [id number] [address] [place] [address], [place] [address] 30 Jul, 2013 [facility] [address] [id number] [address] [place] [address], [place] [address] 30 Jul, 2013 [facility] [address] [id number] [address] [place] [address], [place] [address] 30 Jul, 2013 [facility] [address] [id number] [address] [place] [address], [place] [address] 25 Jul, 2013 [facility] [address] [id number] [address] [place] [address], [place] [address] 25 Jul, 2013 [facility] [address] [id number] [address] [place] [address], [place] [address] 15 Jul, 2014 [facility] [address] [id number] [address] [place] [address], [place] [address] 15 Jul, 2014 [facility] [address] [id number] [address] [place] [address], [place] [address] 11 Jul, 2014 [facility] [address] [id number] [address] [place] [address], [place] [address] Jul, [facility] [address] [id number] [address] [place] [address], [place] [address] Jun, [facility] [address] [id number] [address] [place] [address], [place] [address] Jun, [facility] [address] [id number] [address] [place] [address], [place] [address] Jun, [facility] [address] [id number] [facility] [place] [address] Jun, [facility] [address] [id number] [address] [place] [address], [place] [address] Jun, [facility] [address] [id number] [address] [place] [address], [place] [address] Jun, [facility] [address] [id number] [address] [place] [address], [place] [address] Jun, [facility] [address] [id number] [address] [place] [address], [place] [address] Jun, [facility] [address] [id number] [address] [place] [address], [place] [address] Jun, [facility] [address] [id number] [address] [place] [address], [place] [address] Jun, [facility] [address] [id number] [address] [place] [address], [place] [address] Jun, [facility] [address] [id number] [address] [place] [address], [place] [address] Jun, [facility] [address] [id number] [address] [place] [address], [place] [address] Jun, [facility] [address] [id number] [address] [place] [address], [place] [address] Jun, [facility] [address] [id number] [address] [place] [address], [place] [address] Jun, [facility] [address] [id number] [address] [place] [address], [place] [address] Jun, [facility] [address] [id number] [address] [place] [address], [place] [address] Jun, [facility] [address] [id number] [address] [place] [address], [place] [address] Jun, [facility] [address] [id number] [address] [place] [address], [place] [address] Jun, [facility] [address] [id number] [facility] [place] [address] Jun, [facility] [address] [id number] [address] [place] [address], [place] [address] Jun, [facility] [address] [id number] [address] [place] [address], [place] [address] Jun, [facility] [address] [id number] [address] [place] [address], [place] [address] May, [facility] [address] [id number] [address] [place] [address], [place] [address] May, [facility] [address] [id number] [address] [place] [address], [place] [address] May, [facility] [address] [id number] [address] [place] [address], [place] [address] May, [facility] [address] [id number] [address] [place] [address], [place] [address] May, [facility] [address] [id number] [address] [place] [address], [place] [address] May, [facility] [address] [id number] [address] [place] [address], [place] [address] May, [facility] [address] [id number] [address] [place] [address], [place] [address] May, [facility] [address] [id number] [address] [place] [address], [place] [address] May, [facility] [address] [id number] [address] [place] [address], [place] [address] May, [facility] [address] [id number] [address] [place] [address], [place] [address] May, [facility] [address] [id number] [address] [place] [address], [place] [address] May, [facility] [address] [id number] [facility] [place] [address] May, [facility] [address] [id number] [facility] [place] [address] Apr, [facility] [address] [id number] [facility] [place] [address] Apr, [facility] [address] [id number] [facility] [place] [address] Apr, [facility] [address] [id number] [facility] [place] [address] Apr, [facility] [address] [id number] [facility] [place] [address] Apr, [facility] [address] [id number] [address] [place] [address], [place] [address] Apr, [facility] [address] [id number] [address] [place] [address], [place] [address] Apr, [facility] [address] [id number] [address] [place] [address], [place] [address] Apr, [facility] [address] [id number] [address] [place] [address], [place] [address] Apr, [facility] [address] [id number] [address] [place] [address], [place] [address] March, [facility] [address] [id number] [address] [place] [address], [place] [address] March, [facility] [address] [id number] [address] [place] [address], [place] [address] March, [facility] [address] [id number] [address] [place] [address], [place] [address] March, [facility] [address] [id number] [address] [place] [address], [place] [address] March, [facility] [address] [id number] [address] [place] [address], [place] [address] March, [facility] [address] [id number] [facility] [place] [address] March, [facility] [address] [id number] [address] [place] [address], [place] [address] March, [facility] [address] [id number] [address] [place] [address], [place] [address] March, [facility] [address] [id number] [address] [place] [address], [place] [address] March, [facility] [address] [id number] [address] [place] [address], [place] [address] March, [facility] [address] [id number] [address] [place] [address], [place] [address] March, [facility] [address] [id number] [address] [place] [address], [place] [address] March, [facility] [address] [id number] [address] [place] [address], [place] [address] March, [facility] [address] [id number] [address] [place] [address], [place] [address] March, [facility] [address] [id number] [address] [place] [address], [place] [address] March, [facility] [address] [id number] [address] [place] [address], [place] [address] March, [facility] [address] [id number] [address] [place] [address], [place] [address] March, [facility] [address] [id number] [address] [place] [address], [place] [address] March, [facility] [facility] [address] [id number] [address] [place] [address], [place] [address] March, [facility] [address] [id number] [address] [place] [address], [place] [address] Feb, [facility] [address] [id number] [facility] [place] [address] Feb, [facility] [address] [id number] [address] [place] [address], [place] [address] Feb, [facility] [address] [id number] [facility] [place] [address] Feb, [facility] [address] [id number] [address] [place] [address], [place] [address] Feb, [facility] [address] [id number] [address] [place] [address], [place] [address] Feb, [facility] [address] [id number] [address] [place] [address], [place] [address] Feb, [facility] [address] [id number] [address] [place] [address], [place] [address] Feb, [facility] [address] [id number] [address] [place] [address], [place] [address] Jan, [facility] [address] [id number] [address] [place] [address], [place] [address] Jan, [facility] [address] [id number] [address] [place] [address], [place] [address] Jan, [facility] [address] [id number] [address] [place] [address], [place] [address] Jan, [facility] [address] [id number] [address] [place] [address], [place] [address] Jan, [facility] [address] [id number] [address] [place] [address], [place] [address] Jan, [facility] [address] [id number] [address] [place] [address], [place] [address] Jan, [facility] [address] [id number] [address] [place] [address], [place] [address] Jan, [facility] [address] [id number] [address] [place] [address], [place] [address] Jan, [facility] [address] [id number] [facility] [place] [address] Jan, [facility] [address] [id number] [address] [place] [address], [place] [address] Dec, [facility] [address] [id number] [address] [place] [address], [place] [address] Dec, [facility] [address] [id number] [address] [place] [address], [place] [address] Dec, [facility] [address] [id number] [address] [place] [address], [place] [address] Dec, [facility] [address] [id number] [address] [place] [address], [place] [address] Dec, [facility] [address] [id number] [address] [place] [address], [place] [address] Dec, [facility] [address] [id number] [address] [place] [address], [place] [address] Dec, [facility] [address] [id number] [address] [place] [address], [place] [address] Dec, [facility] [address] [id number] [address] [place] [address], [place] [address] Nov, [facility] [address] [id number] [address] [place] [address], [place] [address] Nov, [facility] [address] [id number] [address] [place] [address], [place] [address] Nov, [facility] [address] [id number] [address] [place] [address], [place] [address] Nov, [facility] [address] [id number] [address] [place] [address], [place] [address] Nov, [facility] [address] [id number] [address] [place] [address], [place] [address] Nov, [facility] [address] [id number] [address] [place] [address], [place] [address] Nov, [facility] [address] [id number] [address] [place] [address], [place] [address] Nov, [facility] [address] [id number] [address] [place] [address], [place] [address] Nov, [facility] [address] [id number] [address] [place] [address], [place] [address] Nov, [facility] [address] [id number] [address] [place] [address], [place] [address] Nov, [facility] [address] [id number] [address] [place] [address], [place] [address] Nov, [facility] [address] [id number] [address] [place] [address], [place] [address] Nov, [facility] [address] [id number] [address] [place] [address], [place] [address] Oct, [facility] [address] [id number] [address] [place] [address], [place] [address] 30 Oct, 2013 [facility] [address] [id number] [address] [place] [address], [place] [address] Oct, [facility] [address] [id number] [address] [place] [address], [place] [address] Oct, [facility] [address] [id number] [address] [place] [address], [place] [address] Oct, [facility] [address] [id number] [address] [place] [address], [place] [address] Oct, [facility] [address] [id number] [address] [place] [address], [place] [address] 18 Oct, 2013 [facility] [address] [id number] [address] [place] [address], [place] [address] 18 Oct, 2013 [facility] [address] [id number] [address] [place] [address], [place] [address] Oct, [facility] [address] [id number] [address] [place] [address], [place] [address] Oct, [facility] [address] [id number] [address] [place] [address], [place] [address] Oct, [facility] [address] [id number] [address] [place] [address], [place] [address] Oct, [facility] [address] [id number] [address] [place] [address], [place] [address] Oct, [facility] [address] [id number] [address] [place] [address], [place] [address] Oct, [facility] [address] [id number] [address] [place] [address], [place] [address] Sep, [facility] [address] [id number] [address] [place] [address], [place] [address] Sep, [facility] [address] [id number] [address] [place] [address], [place] [address] Sep, [facility] [address] [id number] [address] [place] [address], [place] [address] Sep, [facility] [address] [id number] [address] [place] [address], [place] [address] Sep, [facility] [address] [id number] [address] [place] [address], [place] [address] Sep, [facility] [address] [id number] [address] [place] [address], [place] [address] Sep, [facility] [address] [id number] [address] [place] [address], [place] [address] Sep, [facility] [address] [id number] [address] [place] [address], [place] [address] Sep, [facility] [address] [id number] [address] [place] [address], [place] [address] Sep, [facility] [address] [id number] [address] [place] [address], [place] [address] Aug, [facility] [address] [id number] [address] [place] [address], [place] [address] Aug, [facility] [address] [id number] [address] [place] [id number] Aug, [facility] [address] [id number] [address] [place] [id number] Aug, [facility] [address] [id number] [address] [place] [id number] Aug, [facility] [address] [id number] [address] [place] [address], [place] [address] Aug, [facility] [address] [id number] [address] [place] [id number] Aug, [facility] [address] [id number] [address] [place] [id number] Aug, [facility] [address] [id number] [address] [place] [id number] Aug, [facility] [address] [id number] [address] [place] [id number] Aug, [facility] [address] [id number] [address] [place] [id number] 18 Aug, 2013 [facility] [address] [id number] [address] [place] [id number] 18 Aug, 2013 [facility] [address] [id number] [address] [place] [id number] 18 Aug, 2013 [facility] [address] [id number] [address] [place] [address], [place] [address] 18 Aug, 2013 [facility] [address] [id number] [address] [place] [id number] 17 Aug, 2013 [facility] [address] [id number] [address] [place] [id number] 14 Aug, 2013 [facility] [address] [id number] [address] [place] [address], [place] [address] 14 Aug, 2013 [facility] [address] [id number] [address] [place] [address], [place] [address] 01 Aug, 2013 [facility] [address] [id number] [address] [place] [address], [place] [address] 20 Jul, 2013 [facility] [address] [id number] [address] [place] [address], [place] [address] 19 Jul, 2013 [facility] [address] [id number] [address] [place] [address], [place] [address] 18 Jul, 2013 [facility] [address] [id number] [address] [place] [address], [place] [address] 11 Jul, 2013 [facility] [address] [id number] [address] [place] [address], [place] [address] Jul, [facility] [address] [id number] [address] [place] [address], [place] [address] Jun, [facility] [address] [id number] [address] [place] [address], [place] [address] Jun, [facility] [address] [id number] [address] [place] [address], [place] [address] Jun, [facility] [address] [id number] [address] [place] [address], [place] [address] 15 Jun, 2013 [facility] [address] [id number] [address] [place] [address], [place] [address] 14 Jun, 2013 [facility] [address] [id number] [address] [place] [address], [place] [address] Jun, [facility] [address] [id number] [address] [place] [address], [place] [address] Jun, [facility] [address] [id number] [address] [place] [address], [place] [address] 08 Jun, 2013 [facility] [address] [id number] [address] [place] [address], [place] [address] Jun, [facility] [address] [id number] [address] [place] [address], [place] [address] Jun, [facility] [address] [id number] [address] [place] [address], [place] [address] May, [facility] [address] [id number] [address] [place] [address], [place] [address] May, [facility] [address] [id number] [address] [place] [address], [place] [address] May, [facility] [address] [id number] [address] [place] [address], [place] [address] May, [facility] [address] [id number] [address] [place] [address], [place] [address] May, [facility] [address] [id number] [address] [place] [address], [place] [address] May, [facility] [address] [id number] [address] [place] [address], [place] [address] May, [facility] [address] [id number] [address] [place] [address], [place] [address] May, [facility] [address] [id number] [address] [place] [address], [place] [address] May, [facility] [address] [id number] [address] [place] [address], [place] [address] Apr, [facility] [address] [id number] [address] [place] [address], [place] [address] Apr, [facility] [address] [id number] [address] [place] [address], [place] [address] Apr, [facility] [address] [id number] [address] [place] [address], [place] [address] Apr, [facility] [address] [id number] [address] [place] [address], [place] [address] Apr, [facility] [address] [id number] [address] [place] [address], [place] [address] 04 Apr, 2013 [facility] [address] [id number] [address] [place] [address], [place] [address] Apr, [facility] [address] [id number] [address] [place] [address], [place] [address] March, [facility] [address] [id number] [address] [place] [address], [place] [address] Feb, [facility] [address] [id number] [address] [place] [address], [place] [address] Feb, [facility] [address] [id number] [address] [place] [address], [place] [address] Feb, [facility] [address] [id number] [address] [place] [address], [place] [address] Jan, [facility] [address] [id number] [address] [place] [address], [place] [address] Jan, [facility] [address] [id number] [address] [place] [address], [place] [address] Jan, [facility] [address] [id number] [address] [place] [address], [place] [address] Jan, [facility] [address] [id number] [address] [place] [address], [place] [address] Jan, [facility] [address] [id number] [address] [place] [address], [place] [address] Jan, [facility] [address] [id number] [address] [place] [address], [place] [address] Jan, [facility] [address] [id number] [address] [place] [address], [place] [address] Jan, [facility] [address] [id number] [address] [place] [address], [place] [address] Dec, [facility] [address] [id number] [address] [place] [address], [place] [address] Dec, [facility] [address] [id number] [address] [place] [address], [place] [address] 13 Dec, 2012 [facility] [address] [id number] [address] [place] [address], [place] [address] 11 Dec, 2012 [facility] [address] [id number] [address] [place] [address], [place] [address] 07 Dec, 2012 [facility] [address] [id number] [address] [place] [address], [place] [address] 06 Dec, 2012 [facility] [address] [id number] [address] [place] [address], [place] [address] 05 Dec, 2012 [facility] [address] [id number] [address] [place] [address], [place] [address] Nov, [facility] [address] [id number] [address] [place] [address], [place] [address] Nov, [facility] [address] [id number] [address] [place] [address], [place] [address] Nov, [facility] [address] [id number] [address] [place] [address], [place] [address] Nov, [facility] [address] [id number] [address] [place] [address], [place] [address] Nov, [facility] [address] [id number] [address] [place] [address], [place] [address] Nov, [facility] [address] [id number] [address] [place] [address], [place] [address] Nov, [facility] [address] [id number] [address] [place] [address], [place] [address] Oct, [facility] [address] [id number] [address] [place] [address], [place] [address] Oct, [facility] [address] [id number] [address] [place] [address], [place] [address] Oct, [facility] [address] [id number] [address] [place] [address], [place] [address] Oct, [facility] [address] [id number] [address] [place] [address], [place] [address] Oct, [facility] [address] [id number] [address] [place] [address], [place] [address] Oct, [facility] [address] [id number] [address] [place] [address], [place] [address] Oct, [facility] [address] [id number] [address] [place] [address], [place] [address] Oct, [facility] [address] [id number] [address] [place] [address], [place] [address] Oct, [facility] [address] [id number] [address] [place] [address], [place] [address] Oct, [facility] [address] [id number] [address] [place] [address], [place] [address] Oct, [facility] [address] [id number] [address] [place] [address], [place] [address] Oct, [facility] [address] [id number] [address] [place] [address], [place] [address] Sep, [facility] [address] [id number] [address] [place] [address], [place] [address] Sep, [facility] [address] [id number] [address] [place] [address], [place] [address] Sep, [facility] [address] [id number] [address] [place] [address], [place] [address] Sep, [facility] [address] [id number] [address] [place] [address], [place] [address] Sep, [facility] [address] [id number] [address] [place] [address], [place] [address] Sep, [facility] [address] [id number] [address] [place] [address], [place] [address] Sep, [facility] [address] [id number] [address] [place] [address], [place] [address] Sep, [facility] [address] [id number] [address] [place] [address], [place] [address] Sep, [facility] [address] [id number] [address] [place] [address], [place] [address] Sep, [facility] [address] [id number] [address] [place] [address], [place] [address] Sep, [facility] [address] [id number] [address] [place] [address], [place] [address] Aug, [facility] [address] [id number] [address] [place] [address], [place] [address] Aug, [facility] [address] [id number] [address] [place] [address], [place] [address] Aug, [facility] [address] [id number] [address] [place] [address], [place] [address] Aug, [facility] [address] [id number] [address] [place] [address], [place] [address] Aug, [facility] [address] [id number] [address] [place] [address], [place] [address] Aug, [facility] [address] [id number] [address] [place] [address], [place] [address] Aug, [facility] [address] [id number] [address] [place] [address], [place] [address] Aug, [facility] [address] [id number] [address] [place] [address], [place] [address] Aug, [facility] [address] [id number] [address] [place] [address], [place] [address] Aug, [facility] [address] [id number] [address] [place] [address], [place] [address] 22 Jul, 2012 [facility] [address] [id number] [address] [place] [address], [place] [address] Jul, [facility] [address] [id number] [facility] [place] [address] Jul, [facility] [address] [id number] [address] [place] [address], [place] [address] Jul, [facility] [address] [id number] [address] [place] [address], [place] [address] Jun, [facility] [address] [id number] [address] [place] [address], [place] [address] Jun, [facility] [address] [id number] [address] [place] [address], [place] [address] Jun, [facility] [address] [id number] [address] [place] [address], [place] [address] Jun, [facility] [address] [id number] [address] [place] [address], [place] [address] Jun, [facility] [address] [id number] [address] [place] [address], [place] [address] Jun, [facility] [address] [id number] [address] [place] [address], [place] [address] Jun, [facility] [address] [id number] [address] [place] [address], [place] [address] May, [facility] [address] [id number] [address] [place] [address], [place] [address] May, [facility] [address] [id number] [address] [place] [address], [place] [address] May, [facility] [address] [id number] [address] [place] [address], [place] [address] May, [facility] [address] [id number] [address] [place] [address], [place] [address] May, [facility] [address] [id number] [address] [place] [address], [place] [address] Apr, [facility] [address] [id number] [address] [place] [address], [place] [address] 18 Apr, 2012 [facility] [address] [id number] [address] [place] [address], [place] [address] Apr, [facility] [address] [id number] [address] [place] [address], [place] [address] Apr, [facility] [address] [id number] [address] [place] [address], [place] [address] Apr, [facility] [address] [id number] [address] [place] [address], [place] [address] March, [facility] [address] [id number] [address] [place] [address], [place] [address] March, [facility] [address] [id number] [address] [place] [address], [place] [id number] March, [facility] [address] [id number] [address] [place] [address], [place] [id number] March, [facility] [address] [id number] [address] [place] [address], [place] [id number] March, [facility] [address] [id number] [address] [place] [address], [place] [id number] March, [facility] [address] [id number] [address] [place] [address], [place] [id number] March, [facility] [address] [id number] [address] [place] [address], [place] [id number] March, [facility] [address] [id number] [address] [place] [address], [place] [id number] March, [facility] [address] [id number] [address] [place] [address], [place] [id number] March, [facility] [address] [id number] [address] [place] [address], [place] [address] Feb, [facility] [address] [id number] [address] [place] [address], [place] [address] Feb, [facility] [address] [id number] [address] [place] [address], [place] [address] Feb, [facility] [address] [id number] [address] [place] [address], [place] [address] Feb, [facility] [address] [id number] [address] [place] [address], [place] [id number] Feb, [facility] [address] [id number] [address] [place] [address], [place] [address] Feb, [facility] [address] [id number] [address] [place] [address], [place] [address] Feb, [facility] [address] [id number] [address] [place] [address], [place] [address] Feb, [facility] [address] [id number] [address] [place] [address], [place] [id number] Feb, [facility] [address] [id number] [address] [place] [address], [place] [id number] Jan, [facility] [address] [id number] [address] [place] [address], [place] [address] Jan, [facility] [address] [id number] [address] [place] [address], [place] [id number] 05 Jan, 2012 [facility] [address] [id number] [address] [place] [address], [place] [address] Jan, [facility] [address] [id number] [address] [place] [address], [place] [address] Dec, [facility] [address] [id number] [address] [place] [address], [place] [address] Dec, [facility] [address] [id number] [address] [place] [address], [place] [address] Nov, [facility] [address] [id number] [address] [place] [address], [place] [address] Nov, [facility] [address] [id number] [address] [place] [id number] Nov, [facility] [address] [id number] [address] [place] [id number] Nov, [facility] [address] [id number] [address] [place] [id number] Nov, [facility] [address] [id number] [address] [place] [id number] Oct, [facility] [address] [id number] [address] [place] [id number] Oct, [facility] [address] [id number] [address] [place] [id number] Oct, [facility] [address] [id number] [address] [place] [id number] Oct, [facility] [address] [id number] [address] [place] [id number] Oct, [facility] [address] [id number] [address] [place] [id number] Oct, [facility] [address] [id number] [address] [place] [id number] Oct, [facility] [address] [id number] [address] [place] [id number] Oct, [facility] [address] [id number] [address] [place] [id number] Sep, IMMUNIZATIONS No Known Immunizations SOCIAL HISTORY [...] History No Surgical history information Hospitalization History [facility]- Urosepsis, ab d pain and fever, discharged 11/27/2017 11/26/2017 Hospitalization History [facility] [place]- Went Unrepsonsive, Hit head 2017 Hospitalization History [facility] [place]- Back Pain 8
--- OUTSIDE RECORDS SUMMARY | 2020-06-18 15:42 | XMS REPORT ---
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 Name Role Phone Migration, Doctor Unavailable Unavailable PROBLEMS Type Condition ICD9-CM Code ZUS92-BB Code Onset Dates Condition S tatus SNOMED Code Problem Hypertension I10 Active 9573662 3 Problem Hyperlipidemia E78.5 Active 58616 004 Problem Coronary artery disease I25.10 Active 78275310 Problem Low back pain M54.5 Active 285560 009 Problem Other chronic pain G89.29 Active 8 1889178 Problem Ventral hernia without obstruction or gangrene K43 .9 Active 662662035 Problem Type 2 diabetes mellitus wit hout complication, without long-term current use of insulin E11.9 Active 521188613 Problem Anxiety F41.9 Active 13244838 Problem Peripheral vascular disease I73.9 Ac tive 368020901 Problem Insomnia G47.00 Active 528715570 Problem Microcytic anemia D50.9 Active 23 3449016 Problem Pharyngeal dysphagia R13.13 Active 06255068387845 Problem Other iron deficiency anemia D50.8 A ctive 86502025 Problem Reactive depression F32.9 Active 63953037 Problem Paroxysmal atrial fibrillation I48.0 Active 833158190 Problem Postmenopausal atrophic vaginitis N95.2 Active 36840298 Problem Encounter for suprapubic catheter care Z43.5 Active 276615962 Problem Neurogenic bladder N31.9 Active 3 [id number] ALLERGIES No Information ENCOUNTERS Encounter Location Date Diagnosis [place] [address] [facility] [id number] [address] [place] [phone] 17 Apr, 2020 Anxiety F41.9 and Strain of right shoulder, subsequent encounter S46.911D [place] [address] [id number] [address] [place] [id number] 04 Apr, 2020 [facility] [address] [facility] [id number] [address] [place] [phone] March, [facility] [address] [id number] [address] [place] [address] March, Anxiety F41.9 and Strain of right shoulder, subsequent encounter S46.911D [facility] [address] [id number] [address] [place], [place] [id number] Feb, Anxiety F41.9 and Strain of right shoulder, subsequent encounter S46.911D [facility] [address] [id number] [address] [place] [id number] Jan, Anxiety F41.9 and Strain of right shoulder, subsequent encounter S46.911D [facility] [address] [id number] [address] [place] [phone] Jan, Via [facility] [employer] [address] [place] [id number] Jan, Neurogenic bladder N31.9 [facility] [address] [id number] [address] [place] [phone] Dec, [facility] [address] [id number] [address] [place] [phone] Dec, [facility] [address] [id number] [address] [place] [phone] Dec, Anxiety F41.9 and Strain of right shoulder, subsequent encounter S46.911D [facility] [address] [id number] [address] [place] [phone] 10 Dec, 2019 Other iron deficiency anemia D50.8 [facility] [address] [id number] [address] [place] [id number] Dec, Via [facility] [address] [place] [id number] Dec, Encounter for suprapubic catheter care Z 43.5 and Microcytic anemia D50.9 [facility] [address] [id number] [address] [place] [phone] Dec, [facility] [address] [id number] [address] [place] [phone] Nov, Anxiety F41.9 and Strain of right shoulder, subsequent encounter S46.911D [facility] [address] [id number] [address] [place] [phone] Nov, Hypertension I10 Via [facility] [employer] [address] [place] [id number] Nov, Pneumonia of both lungs due to infectiou s organism, unspecified part of lung J18.9 and Suprapubic catheter Z93.59 [place] [address] [id number] [address] [place] [id number] Nov, Hypertension I10 and Reactiv e depression F32.9 [place] [address] [id number] [address] [place] [phone] Oct, Strain of right shoulder, scherer bsequent encounter S46.911D and Anxiety F41.9 [place] [address] [id number] [address] [place] [id number] Oct, Via [facility] [address] [place] [id number] Oct, Suprapubic catheter Z93.59 and Candidias is, intertriginous B37.2 [facility] [address] [id number] [address] [place] [id number] Oct, Suprapubic catheter Z93.59 [facility] [address] [id number] [address] [place] [phone] Oct, Anxiety F41.9 and Strain of right shoulder, subsequent encounter S46.911D [facility] [address] [id number] [address] [place] [phone] Sep, [place] [address] [id number] [address] [place] [id number] Sep, [place] [address] [id number] [address] [place] [id number] Sep, Via [facility] [address] [place] [id number] Sep, Suprapubic catheter Z93.59 [facility] [address] [id number] [address] [place] [id number] Sep, Anxiety F41.9 and Strain of right shoulder, subsequent encounter S46.911D [facility] [address] [id number] [address] [place] [phone] Aug, [facility] [address] [id number] [address] [place] [phone] Aug, [facility] [address] [id number] [address] [place] [id number] Aug, Anxiety F41.9 and Strain of right shoulder, subsequent encounter S46.911D [facility] [address] [place] [facility] [place] [id number] Aug, Suprapubic catheter Z93.59 [facility] [address] [id number] [address] [place] [id number] Jul, Strain of right shoulder, scherer bsequent encounter S46.911D and Anxiety F41.9 [facility] [address] [id number] [address] [place] [phone] Jul, Anxiety F41.9 [facility] [address] [id number] [address] [place] [phone] Jun, [facility] [address] [id number] [address] [place] [phone] Jun, [facility] [address] [id number] [address] [place] [phone] Jun, [facility] [address] [id number] [address] [place] [phone] Jun, Strain of right shoulder, scherer bsequent encounter S46.911D [facility] [address] [id number] [address] [place] [address] Jun, Strain of right shoulder, scherer bsequent encounter S46.911D [place] [address] [id number] [address] [place] [phone] Jun, Anxiety F41.9 [facility] [address] [place] [id number] Jun, Neurogenic bladder N31.9 and Anxiety F41 .9 [facility] [address] [place] [id number] May, Anxiety F41.9 [place] [address] [id number] [address] [place] [phone] May, Dysuria R30.0 [place] [address] [id number] [address] [place] [id number] May, Strain of right shoulder, scherer bsequent encounter S46.911D and Anxiety F41.9 [place] [address] [id number] [address] [place] [phone] Apr, [facility] [address] [place] [id number] Apr, Strain of right shoulder, subsequent enc ounter S46.911D [place] [address] [id number] [address] [place] [address] 14 Apr, 2019 Strain of right shoulder, scherer bsequent encounter S46.911D and Anxiety F41.9 [facility] [address] [place] [id number] 13 Apr, 2019 Type 2 diabetes mellitus without complic ation, without long-term current use of insulin E11.9 and Neurogenic bladder N31.9 [facility] [address] [place] [id number] Apr, Strain of right shoulder, subsequent enc ounter S46.911D ; History of GI bleed Z87.19 ; Neurogenic bladder N31.9 and Reactive depression F32.9 [place] [address] [id number] [address] [place] [id number] 10 Apr, 2019 Acute pain of left shoulder M25.512 [place] [address] [id number] [address] [place] [phone] Apr, [facility] [address] [id number] [address] [place] [phone] Apr, Anxiety F41.9 and 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 [facility] [address] [place] [id number] March, Gastrointestinal hemorrhage associated w ith acute gastritis K29.01 [facility] [address] [id number] [address] [place] [phone] March, Via [facility] [address] [place] [id number] March, Bronchitis J40 [facility] [address] [id number] [address] [place] [phone] March, Cough R05 [facility] [address] [id number] [address] [place] [phone] March, Other chronic pain G89.29 [facility] [address] [id number] [address] [place] [id number] March, Anxiety F41.9 [facility] [address] [id number] [address] [place] [phone] March, [facility] [address] [id number] [address] [place] [id number] Feb, Other chronic pain G89.29 [facility] [address] [id number] [address] [place] [phone] Feb, Anxiety F41.9 [facility] [address] [id number] [address] [place] [phone] Feb, Other chronic pain G89.29 [facility] [employer] [address] [place] [id number] Feb, Neurogenic bladder N31.9 and Suprapubic catheter Z93.59 [facility] [address] [id number] [address] [place] [phone] Jan, Anxiety F41.9 [facility] [address] [id number] [address] [place] [id number] Dec, Anxiety F41.9 [facility] [address] [id number] [address] [place] [phone] Dec, Other chronic pain G89.29 an d Anxiety F41.9 [facility] [address] [id number] [address] [place] [id number] Dec, Via [facility] [address] [place] [id number] Dec, Neurogenic bladder N31.9 and Suprapubic catheter Z93.59 [facility] [address] [id number] [address] [place] [address] Nov, Other chronic pain G89.29 an d Anxiety F41.9 [facility] [address] [id number] [address] [place] [phone] Nov, [facility] [address] [place] [id number] Nov, Suprapubic catheter Z93.59 [facility] [address] [id number] [address] [place] [phone] Oct, Other chronic pain G89.29 an d Anxiety F41.9 [facility] [address] [id number] [address] [place] [phone] Oct, [facility] [address] [id number] [address] [place] [phone] Oct, Suprapubic catheter Z93.59 [facility] [address] [id number] [address] [place] [phone] Oct, [facility] [address] [place] [id number] Oct, [facility] [address] [id number] [address] [place] [id number] Oct, Anxiety F41.9 [facility] [address] [id number] [address] [place] [id number] Oct, Anxiety F41.9 [facility] [address] [place] [id number] Oct, Other chronic pain G89.29 [facility] [address] [id number] [address] [place] [id number] Sep, Other chronic pain G89.29 Via [employer] [address] [place] [id number] Sep, Suprapubic catheter Z93.59 and Cervicalg ia M54.2 [facility] [address] [id number] [address] [place] [phone] Sep, [facility] [address] [id number] [address] [place] [phone] Sep, [facility] [address] [id number] [address] [place] [phone] Sep, Via [employer] [address] [place] [id number] Aug, Cystitis N30.90 [facility] [address] [id number] [address] [place] [phone] Aug, [facility] [address] [id number] [address] [place] [phone] Aug, Other chronic pain G89.29 [facility] [address] [id number] [address] [place] [phone] Aug, Via [employer] [address] [place] [id number] Aug, Encounter for suprapubic catheter care Z 43.5 [facility] [address] [id number] [address] [place] [phone] Jul, [facility] [employer] [address] [place] [id number] Jul, [facility] [address] [id number] [address] [place] [phone] Jul, Other chronic pain G89.29 [facility] [address] [id number] [address] [place] [id number] Jul, [facility] [address] [id number] [address] [place] [phone] Jul, [facility] [employer] [address] [place] [id number] Jun, Postmenopausal atrophic vaginitis N95.2 [facility] [address] [id number] [address] [place] [phone] Jun, Other chronic pain G89.29 [facility] [address] [id number] [address] [place] [phone] Jun, [facility] [address] [place] [id number] May, Anxiety F41.9 ; Type 2 diabetes mellitus without complication, without long-term current use of insulin E11.9 ; Hypertension I10 ; Low back pain M54.5 ; Paroxysmal atrial fibrillation I48.0 and 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 [facility] [address] [id number] [address] [place] [address] May, Other chronic pain G89.29 [facility] [address] [place] [id number] May, Low back pain M54.5 [facility] [address] [id number] [address] [place] [phone] May, [facility] [address] [id number] [address] [place] [address] Apr, Other chronic pain G89.29 [facility] [address] [id number] [address] [place] [id number] Apr, [facility] [address] [id number] [address] [place] [phone] Apr, [facility] [address] [place] [id number] Apr, Closed compression fracture of L3 lumbar vertebra with routine healing, subsequent encounter S32.030D [facility] [employer] [address] [place] [id number] 14 Apr, 2018 Low back pain M54.5 [facility] [employer] [address] [place] [id number] 12 Apr, 2018 Coccydynia M53.3 [facility] [address] [id number] [address] [place] [phone] March, [facility] [address] [id number] [address] [place] [address] March, Other chronic pain G89.29 [facility] [address] [id number] [address] [place] [phone] March, [facility] [address] [id number] [address] [place] [phone] March, [facility] [address] [id number] [address] [place] [phone] Feb, [facility] [address] [id number] [address] [place] [phone] Feb, Other chronic pain G89.29 [facility] [employer] [address] [place] [id number] Feb, Other chronic pain G89.29 and Anxiety F4 1.9 [facility] [address] [id number] [address] [place] [phone] Feb, [facility] [address] [id number] [address] [place] [id number] Jan, [facility] [address] [id number] [address] [place] [phone] Jan, [facility] [address] [id number] [address] [place] [phone] Jan, [facility] [address] [id number] [address] [place] [phone] Jan, [facility] [address] 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 [id number] [address] [place] [phone] Nov, [facility] [address] [id number] [place] [id number] Nov, Anxiety F41.9 [facility] [address] [place] [id number] Nov, Status post surgery Z98.890 ; Confused R 41.0 ; Anxiety F41.9 and Other chronic pain G89.29 [facility] [address] [id number] [place] [id number] Nov, Other chronic pain G89.29 [facility] [address] [facility] [id number] [address] [place] [phone] Oct, [facility] [address] [id number] [place] [id number] Oct, Other chronic pain G89.29 [facility] [address] [facility] [id number] [address] [place] [phone] Oct, Anxiety F41.9 [facility] [address] [id number] [place] [id number] Sep, Other chronic pain G89.29 [facility] [address] [id number] [place] [id number] Sep, [facility] [address] [place] [id number] Aug, Dysuria R30.0 and Anxiety F41.9 [facility] [address] [id number] [address] [place] [phone] Aug, [facility] [address] [id number] [place] [id number] Aug, Other chronic pain G89.29 [facility] [address] [id number] [address] [place] [phone] Jul, Other chronic pain G89.29 [facility] [address] [id number] [place] [id number] Jun, [facility] [address] [id number] [place] [id number] Jun, Other chronic pain G89.29 [facility] [address] [id number] [address] [place] [phone] Jun, [facility] [address] [id number] [address] [place] [phone] May, Other chronic pain G89.29 [facility] [address] [id number] [address] [place] [phone] Apr, Other chronic pain G89.29 [facility] [address] [place] [id number] Apr, Reactive depression F32.9 and Pharyngeal dysphagia R13.13 [facility] [address] [id number] [address] [place] [phone] Apr, Urinary tract infection with out hematuria, site unspecified N39.0 [facility] [address] [id number] [address] [place] [phone] March, Other chronic pain G89.29 [facility] [address] [id number] [address] [place] [id number] Feb, Other chronic pain G89.29 [facility] [address] [id number] [address] [place] [phone] Feb, [facility] [address] [id number] [facility] [facility] [place] [id number] Feb, [facility] [employer] [address] [place] [id number] Feb, Dysuria R30.0 and Ventral hernia without obstruction or gangrene K43.9 [facility] [address] [id number] [address] [place] [id number] Jan, Other chronic pain G89.29 [facility] [address] [id number] [place] [id number] Dec, Other chronic pain G89.29 [facility] [address] [facility] [id number] [address] [place] [phone] Nov, Other chronic pain G89.29 [facility] [address] [place] [id number] Nov, Lymphadenitis I88.9 [facility] [address] [facility] [id number] [address] [place] [id number] Nov, Other chronic pain G89.29 [facility] [address] [facility] [id number] [address] [place] [id number] Nov, [facility] [id number] [place] [id number] Nov, Other chronic pain G89.29 Via [facility] [address] [place] [id number] Oct, Low back pain M54.5 ; Hypertension I10 a nd Type 2 diabetes mellitus without complication, without long-term current use of insulin E11.9 [facility] [address] [facility] [id number] [address] [place] [id number] Oct, [facility] [address] [id number] [address] [place] [phone] Oct, [facility] [address] [id number] [address] [place] [phone] Oct, [facility] [address] [id number] [address] [place] [phone] Oct, [facility] [address] [id number] [address] [place] [phone] Sep, [facility] [address] [id number] [address] [place] [id number] Sep, [facility] [address] [id number] [address] [place] [id number] Aug, Other chronic pain G89.29 [facility] [address] [id number] [address] [place] [phone] Jul, [facility] [address] [id number] [address] [place] [id number] Jul, [facility] [address] [id number] [address] [place] [id number] Jul, [facility] [address] [id number] [address] [place] [id number] Jun, [facility] [address] [id number] [address] [place] [phone] Jun, [facility] [address] [place] [id number] Jun, Low back pain M54.5 ; Other chronic pain G89.29 and Coronary artery disease I25.10 [facility] [address] [id number] [address] [place] [address] [address] Jun, [facility] [address] [id number] [address] [place] [id number] May, [facility] [address] [id number] [address] [place] [id number] May, [facility] [address] [id number] [address] [place] [id number] 13 May, 2016 Other chronic pain G89.29 [facility] [address] [id number] [address] [place] [id number] 13 May, 2016 [facility] [address] [id number] [address] [place] [id number] 28 Apr, 2016 [facility] [address] [id number] [address] [place] [id number] 17 Apr, 2016 Acute cystitis without hemat uria N30.00 [facility] [address] [id number] [address] [place] [id number] 16 Apr, 2016 Acute cystitis without hemat uria N30.00 ; Coronary artery disease I25.10 ; Low back pain M54.5 and Other chronic pain G89.29 [facility] [address] [id number] [address] [place] [id number] 13 Apr, 2016 Other chronic pain G89.29 [facility] [address] [id number] [address] [place] [id number] March, Other chronic pain G89.29 [facility] [address] [id number] [address] [place] [id number] 18 Feb, 2016 [facility] [address] [id number] [address] [place] [id number] 15 Feb, 2016 Arthritis M19.90 [facility] [address] [id number] [address] [place] [id number] Feb, [facility] [address] [id number] [address] [place] [id number] 30 Jan, 2016 [facility] [address] [id number] [address] [place] [phone] Jan, [facility] [address] [id number] [address] [place] [phone] Jan, Other chronic pain G89.29 [facility] [address] [id number] [address] [place] [phone] Jan, Hypertension I10 ; Coronary artery disease I25.10 and Insomnia G47.00 [facility] [address] [id number] [address] [place] [address] Jan, [facility] [address] [id number] [address] [place] [address] Dec, Right hip pain M25.551 [facility] [address] [id number] [address] [place] [phone] Dec, [facility] [address] [id number] [address] [place] [phone] Dec, [facility] [address] [id number] [address] [place] [phone] Dec, [facility] [address] [id number] [address] [place] [phone] Dec, Other chronic pain G89.29 [facility] [address] [id number] [address] [place] [phone] Dec, [facility] [address] [id number] [address] [place] [phone] Nov, [facility] [address] [id number] [address] [place] [id number] Nov, Other chronic pain G89.29 [facility] [address] [id number] [address] [place] [id number] Nov, Right hip pain M25.551 and C oronary artery disease I25.10 [facility] [address] [id number] [address] [place] [address] Nov, Other chronic pain G89.29 [facility] [address] [id number] [address] [place] [phone] Oct, [facility] [address] [facility] [id number] [address] [place] [phone] Oct, [facility] [address] [id number] [address] [place] [phone] Sep, [facility] [address] [id number] [address] [place] [phone] Sep, [facility] [address] [id number] [address] [place] [phone] Aug, [facility] [address] [id number] [address] [place] [id number] Aug, Hypertension I10 ; Coronary artery disease I25.10 and Arthritis M19.90 [facility] [address] [id number] [address] [place] [phone] Jun, [facility] [address] [facility] [id number] [address] [place] [address] Jun, Essential hypertension, jayson gn 401.1 ; Other chronic pain 338.29 and Chronic airway obstruction, not elsewhere classified 496 [facility] [address] [id number] [address] [place] [phone] Jun, [facility] [address] [id number] [address] [place] [phone] Jun, [facility] [address] [facility] [id number] [address] [place] [phone] Jun, [facility] [address] [id number] [address] [place] [id number] May, [facility] [address] [id number] [address] [place] [phone] May, [facility] [address] [id number] [address] [place] [phone] Apr, [facility] [address] [id number] [address] [place] [phone] Apr, [facility] [address] [id number] [address] [place] [id number] Apr, [facility] [address] [id number] [address] [place] [address], [place] [address] March, [facility] [address] [id number] [address] [place] [address], [place] [address] March, [facility] [address] [id number] [address] [place] [address], [place] [address] March, [facility] [address] [id number] [address] [place] [address], [place] [address] March, [facility] [address] [id number] [address] [place] [address], [place] [address] March, Sialadenitis 527.2 [facility] [address] [id number] [address] [place] [address], [place] [address] Feb, [facility] [address] [id number] [address] [place] [address], [place] [address] Feb, [facility] [address] [id number] [address] [place] [address], [place] [address] Feb, [facility] [address] [id number] [address] [place] [address], [place] [address] Feb, [facility] [address] [id number] [address] [place] [address], [place] [address] Feb, [facility] [address] [id number] [address] [place] [address], [place] [address] Jan, [facility] [address] [id number] [address] [place] [id number] Jan, [facility] [address] [id number] [address] [place] [address], [place] [address] Jan, [facility] [address] [id number] [address] [place] [address], [place] [address] Jan, [facility] [address] [id number] [address] [place] [address], [place] [address] Jan, [facility] [address] [id number] [address] [place] [phone] Jan, [facility] [address] [id number] [address] [place] [address], [place] [address] Dec, [facility] [address] [id number] [address] [place] [address], [place] [address] Dec, [facility] [address] [id number] [address] [place] [address], [place] [address] Dec, [facility] [address] [id number] [address] [place] [address], [place] [address] Dec, [facility] [address] [id number] [address] [place] [address], [place] [address] Dec, [facility] [address] [id number] [address] [place] [address], [place] [address] Dec, [facility] [address] [id number] [address] [place] [address], [place] [address] Nov, [facility] [address] [id number] [address] [place] [address], [place] [address] Nov, [facility] [address] [id number] [address] [place] [address], [place] [address] Nov, [facility] [address] [id number] [address] [place] [address], [place] [address] Nov, [facility] [address] [id number] [address] [place] [address], [place] [address] Nov, [facility] [address] [id number] [address] [place] [address], [place] [address] Nov, [facility] [address] [id number] [address] [place] [address], [place] [address] Nov, [facility] [address] [id number] [address] [place] [address], [place] [address] Nov, [facility] [address] [id number] [address] [place] [address], [place] [address] Nov, [facility] [address] [id number] [address] [place] [address], [place] [address] Nov, [facility] [address] [id number] [address] [place] [address], [place] [address] Nov, [facility] [address] [id number] [address] [place] [address], [place] [address] Nov, [facility] [address] [id number] [address] [place] [address], [place] [address] Nov, [facility] [address] [id number] [address] [place] [address], [place] [address] Nov, [facility] [address] [id number] [address] [place] [address], [place] [address] Oct, [facility] [address] [id number] [address] [place] [address], [place] [address] Oct, [facility] [address] [id number] [address] [place] [address], [place] [address] Oct, [facility] [address] [id number] [address] [place] [address], [place] [address] Oct, [facility] [address] [id number] [address] [place] [address], [place] [address] Oct, [facility] [address] [id number] [address] [place] [address], [place] [address] 17 Oct, 2014 [facility] [address] [id number] [address] [place] [address], [place] [address] 17 Oct, 2014 [facility] [address] [id number] [address] [place] [address], [place] [address] Oct, [facility] [address] [id number] [address] [place] [address], [place] [address] Oct, [facility] [address] [id number] [address] [place] [address], [place] [address] Sep, [facility] [address] [id number] [address] [place] [address], [place] [address] Sep, [facility] [address] [id number] [address] [place] [address], [place] [address] Sep, [facility] [address] [id number] [address] [place] [address], [place] [address] Sep, [facility] [address] [id number] [address] [place] [address], [place] [address] Sep, [facility] [address] [id number] [address] [place] [address], [place] [address] Sep, [facility] [address] [id number] [address] [place] [address], [place] [address] Sep, [facility] [address] [id number] [address] [place] [address], [place] [address] Sep, [facility] [address] [id number] [address] [place] [address], [place] [address] Sep, [facility] [address] [id number] [address] [place] [address], [place] [address] Sep, [facility] [address] [id number] [address] [place] [address], [place] [address] Sep, [facility] [address] [id number] [address] [place] [address], [place] [address] Sep, [facility] [address] [id number] [address] [place] [address], [place] [address] Aug, [facility] [address] [id number] [address] [place] [address], [place] [address] Aug, [facility] [address] [id number] [address] [place] [address], [place] [address] Aug, [facility] [address] [id number] [address] [place] [address], [place] [address] Aug, [facility] [address] [id number] [address] [place] [address], [place] [address] Aug, [facility] [address] [id number] [address] [place] [address], [place] [address] 28 Aug, 2014 [facility] [address] [id number] [address] [place] [address], [place] [address] Aug, [facility] [address] [id number] [address] [place] [address], [place] [address] 17 Aug, 2014 [facility] [address] [id number] [address] [place] [address], [place] [address] 30 Jul, 2013 [facility] [address] [id number] [address] [place] [address], [place] [address] 30 Jul, 2013 [facility] [address] [id number] [address] [place] [address], [place] [address] 30 Jul, 2013 [facility] [address] [id number] [address] [place] [address], [place] [address] 30 Jul, 2013 [facility] [address] [id number] [address] [place] [address], [place] [address] 25 Jul, 2013 [facility] [address] [id number] [address] [place] [address], [place] [address] 25 Jul, 2013 [facility] [address] [id number] [address] [place] [address], [place] [address] 15 Jul, 2014 [facility] [address] [id number] [address] [place] [address], [place] [address] 15 Jul, 2014 [facility] [address] [id number] [address] [place] [address], [place] [address] 11 Jul, 2014 [facility] [address] [id number] [address] [place] [address], [place] [address] Jul, [facility] [address] [id number] [address] [place] [address], [place] [address] Jun, [facility] [address] [id number] [address] [place] [address], [place] [address] Jun, [facility] [address] [id number] [address] [place] [address], [place] [address] Jun, [facility] [address] [id number] [facility] [place] [address] Jun, [facility] [address] [id number] [address] [place] [address], [place] [address] Jun, [facility] [address] [id number] [address] [place] [address], [place] [address] Jun, [facility] [address] [id number] [address] [place] [address], [place] [address] Jun, [facility] [address] [id number] [address] [place] [address], [place] [address] Jun, [facility] [address] [id number] [address] [place] [address], [place] [address] Jun, [facility] [address] [id number] [address] [place] [address], [place] [address] Jun, [facility] [address] [id number] [address] [place] [address], [place] [address] Jun, [facility] [address] [id number] [address] [place] [address], [place] [address] Jun, [facility] [address] [id number] [address] [place] [address], [place] [address] Jun, [facility] [address] [id number] [address] [place] [address], [place] [address] Jun, [facility] [address] [id number] [address] [place] [address], [place] [address] Jun, [facility] [address] [id number] [address] [place] [address], [place] [address] Jun, [facility] [address] [id number] [address] [place] [address], [place] [address] Jun, [facility] [address] [id number] [address] [place] [address], [place] [address] Jun, [facility] [address] [id number] [address] [place] [address], [place] [address] Jun, [facility] [address] [id number] [facility] [place] [address] Jun, [facility] [address] [id number] [address] [place] [address], [place] [address] Jun, [facility] [address] [id number] [address] [place] [address], [place] [address] Jun, [facility] [address] [id number] [address] [place] [address], [place] [address] May, [facility] [address] [id number] [address] [place] [address], [place] [address] May, [facility] [address] [id number] [address] [place] [address], [place] [address] May, [facility] [address] [id number] [address] [place] [address], [place] [address] May, [facility] [address] [id number] [address] [place] [address], [place] [address] May, [facility] [address] [id number] [address] [place] [address], [place] [address] May, [facility] [address] [id number] [address] [place] [address], [place] [address] May, [facility] [address] [id number] [address] [place] [address], [place] [address] May, [facility] [address] [id number] [address] [place] [address], [place] [address] May, [facility] [address] [id number] [address] [place] [address], [place] [address] May, [facility] [address] [id number] [address] [place] [address], [place] [address] May, [facility] [address] [id number] [address] [place] [address], [place] [address] May, [facility] [address] [id number] [facility] [place] [address] May, [facility] [address] [id number] [facility] [place] [address] Apr, [facility] [address] [id number] [facility] [place] [address] Apr, [facility] [address] [id number] [facility] [place] [address] Apr, [facility] [address] [id number] [facility] [place] [address] Apr, [facility] [address] [id number] [facility] [place] [address] Apr, [facility] [address] [id number] [address] [place] [address], [place] [address] Apr, [facility] [address] [id number] [address] [place] [address], [place] [address] Apr, [facility] [address] [id number] [address] [place] [address], [place] [address] Apr, [facility] [address] [id number] [address] [place] [address], [place] [address] Apr, [facility] [address] [id number] [address] [place] [address], [place] [address] March, [facility] [address] [id number] [address] [place] [address], [place] [address] March, [facility] [address] [id number] [address] [place] [address], [place] [address] March, [facility] [address] [id number] [address] [place] [address], [place] [address] March, [facility] [address] [id number] [address] [place] [address], [place] [address] March, [facility] [address] [id number] [address] [place] [address], [place] [address] March, [facility] [address] [id number] [address] [place] [address] March, [facility] [address] [id number] [address] [place] [address], [place] [address] March, [facility] [address] [id number] [address] [place] [address], [place] [address] March, [facility] [address] [id number] [address] [place] [address], [place] [address] March, [facility] [address] [id number] [address] [place] [address], [place] [address] March, [facility] [address] [id number] [address] [place] [address], [place] [address] March, [facility] [address] [id number] [address] [place] [address], [place] [address] March, [facility] [address] [id number] [address] [place] [address], [place] [address] March, [facility] [address] [id number] [address] [place] [address], [place] [address] March, [facility] [address] [id number] [address] [place] [address], [place] [address] March, [facility] [address] [id number] [address] [place] [address], [place] [address] March, [facility] [address] [id number] [address] [place] [address], [place] [address] March, [facility] [address] [id number] [address] [place] [address], [place] [address] March, [facility] [address] [id number] [address] [place] [address], [place] [address] March, [facility] [address] [id number] [address] [place] [address], [place] [address] Feb, [facility] [address] [id number] [address] [place] [address] Feb, [facility] [address] [id number] [address] [place] [address], [place] [address] Feb, [facility] [address] [id number] [address] [place] [address] Feb, [facility] [address] [id number] [address] [place] [address], [place] [address] Feb, [facility] [address] [id number] [address] [place] [address], [place] [address] Feb, [facility] [address] [id number] [address] [place] [address], [place] [address] Feb, [facility] [address] [id number] [address] [place] [address], [place] [address] Feb, [facility] [address] [id number] [address] [place] [address], [place] [address] Jan, [facility] [address] [id number] [address] [place] [address], [place] [address] Jan, [facility] [address] [id number] [address] [place] [address], [place] [address] Jan, [facility] [address] [id number] [address] [place] [address], [place] [address] Jan, [facility] [address] [id number] [address] [place] [address], [place] [address] Jan, [facility] [address] [id number] [address] [place] [address], [place] [address] Jan, [facility] [address] [id number] [address] [place] [address], [place] [address] Jan, [facility] [address] [id number] [address] [place] [address], [place] [address] Jan, [facility] [address] [id number] [address] [place] [address], [place] [address] Jan, [facility] [address] [id number] [address] [place] [address] Jan, [facility] [address] [id number] [address] [place] [address], [place] [address] Dec, [facility] [address] [id number] [address] [place] [address], [place] [address] Dec, [facility] [address] [id number] [address] [place] [address], [place] [address] Dec, [facility] [address] [id number] [address] [place] [address], [place] [address] Dec, [facility] [address] [id number] [address] [place] [address], [place] [address] Dec, [facility] [address] [id number] [address] [place] [address], [place] [address] Dec, [facility] [address] [id number] [address] [place] [address], [place] [address] Dec, [facility] [address] [id number] [address] [place] [address], [place] [address] Dec, [facility] [address] [id number] [address] [place] [address], [place] [address] Nov, [facility] [address] [id number] [address] [place] [address], [place] [address] Nov, [facility] [address] [id number] [address] [place] [address], [place] [address] Nov, [facility] [address] [id number] [address] [place] [address], [place] [address] Nov, [facility] [address] [id number] [address] [place] [address], [place] [address] Nov, [facility] [address] [id number] [address] [place] [address], [place] [address] Nov, [facility] [address] [id number] [address] [place] [address], [place] [address] Nov, [facility] [address] [id number] [address] [place] [address], [place] [address] Nov, [facility] [address] [id number] [address] [place] [address], [place] [address] Nov, [facility] [address] [id number] [address] [place] [address], [place] [address] Nov, [facility] [address] [id number] [address] [place] [address], [place] [address] Nov, [facility] [address] [id number] [address] [place] [address], [place] [address] Nov, [facility] [address] [id number] [address] [place] [address], [place] [address] Nov, [facility] [address] [id number] [address] [place] [address], [place] [address] Oct, [facility] [address] [id number] [address] [place] [address], [place] [address] 30 Oct, 2013 [facility] [address] [id number] [address] [place] [address], [place] [address] Oct, [facility] [address] [id number] [address] [place] [address], [place] [address] Oct, [facility] [address] [id number] [address] [place] [address], [place] [address] Oct, [facility] [address] [id number] [address] [place] [address], [place] [address] Oct, [facility] [address] [id number] [address] [place] [address], [place] [address] 18 Oct, 2013 [facility] [address] [id number] [address] [place] [address], [place] [address] 18 Oct, 2013 [facility] [address] [id number] [address] [place] [address], [place] [address] Oct, [facility] [address] [id number] [address] [place] [address], [place] [address] Oct, [facility] [address] [id number] [address] [place] [address], [place] [address] Oct, [facility] [address] [id number] [address] [place] [address], [place] [address] Oct, [facility] [address] [id number] [address] [place] [address], [place] [address] Oct, [facility] [address] [id number] [address] [place] [address], [place] [address] Oct, [facility] [address] [id number] [address] [place] [address], [place] [address] Sep, [facility] [address] [id number] [address] [place] [address], [place] [address] Sep, [facility] [address] [id number] [address] [place] [address], [place] [address] Sep, [facility] [address] [id number] [address] [place] [address], [place] [address] Sep, [facility] [address] [id number] [address] [place] [address], [place] [address] Sep, [facility] [address] [id number] [address] [place] [address], [place] [address] Sep, [facility] [address] [id number] [address] [place] [address], [place] [address] Sep, [facility] [address] [id number] [address] [place] [address], [place] [address] Sep, [facility] [address] [id number] [address] [place] [address], [place] [address] Sep, [facility] [address] [id number] [address] [place] [address], [place] [address] Sep, [facility] [address] [id number] [address] [place] [address], [place] [address] Aug, [facility] [address] [id number] [address] [place] [address], [place] [address] Aug, [facility] [address] [id number] [address] [place] [address] Aug, [facility] [address] [id number] [address] [place] [address] Aug, [facility] [address] [id number] [address] [place] [address] Aug, [facility] [address] [id number] [address] [place] [address], [place] [address] Aug, [facility] [address] [id number] [address] [place] [address] Aug, [facility] [address] [id number] [address] [place] [address] Aug, [facility] [address] [id number] [address] [place] [address] Aug, [facility] [address] [id number] [address] [place] [address] Aug, [facility] [address] [id number] [address] [place] [id number] 18 Aug, 2013 [facility] [address] [id number] [address] [place] [id number] 18 Aug, 2013 [facility] [address] [id number] [address] [place] [address] 18 Aug, 2013 [facility] [address] [id number] [address] [place] [address], [place] [address] 18 Aug, 2013 [facility] [address] [id number] [address] [place] [id number] 17 Aug, 2013 [facility] [address] [id number] [address] [place] [id number] 14 Aug, 2013 [facility] [address] [id number] [address] [place] [address], [place] [address] 14 Aug, 2013 [facility] [address] [id number] [address] [place] [address], [place] [address] 01 Aug, 2013 [facility] [address] [id number] [address] [place] [address], [place] [address] 20 Jul, 2013 [facility] [address] [id number] [address] [place] [address], [place] [address] 19 Jul, 2013 [facility] [address] [id number] [address] [place] [address], [place] [address] 18 Jul, 2013 [facility] [address] [id number] [address] [place] [address], [place] [address] 11 Jul, 2013 [facility] [address] [id number] [address] [place] [address], [place] [address] Jul, [facility] [address] [id number] [address] [place] [address], [place] [address] Jun, [facility] [address] [id number] [address] [place] [address], [place] [address] Jun, [facility] [address] [id number] [address] [place] [address], [place] [address] Jun, [facility] [address] [id number] [address] [place] [address], [place] [address] 15 Jun, 2013 [facility] [address] [id number] [address] [place] [address], [place] [address] 14 Jun, 2013 [facility] [address] [id number] [address] [place] [address], [place] [address] Jun, [facility] [address] [id number] [address] [place] [address], [place] [address] Jun, [facility] [address] [id number] [address] [place] [address], [place] [address] 08 Jun, 2013 [facility] [address] [id number] [address] [place] [address], [place] [address] Jun, [facility] [address] [id number] [address] [place] [address], [place] [address] Jun, [facility] [address] [id number] [address] [place] [address], [place] [address] May, [facility] [address] [id number] [address] [place] [address], [place] [address] May, [facility] [address] [id number] [address] [place] [address], [place] [address] May, [facility] [address] [id number] [address] [place] [address], [place] [address] May, [facility] [address] [id number] [address] [place] [address], [place] [address] May, [facility] [address] [id number] [address] [place] [address], [place] [address] May, [facility] [address] [id number] [address] [place] [address], [place] [address] May, [facility] [address] [id number] [address] [place] [address], [place] [address] May, [facility] [address] [id number] [address] [place] [address], [place] [address] May, [facility] [address] [id number] [address] [place] [address], [place] [address] Apr, [facility] [address] [id number] [address] [place] [address], [place] [address] Apr, [facility] [address] [id number] [address] [place] [address], [place] [address] Apr, [facility] [address] [id number] [address] [place] [address], [place] [address] Apr, [facility] [address] [id number] [address] [place] [address], [place] [address] Apr, [facility] [address] [id number] [address] [place] [address], [place] [address] 04 Apr, 2013 [facility] [address] [id number] [address] [place] [address], [place] [address] Apr, [facility] [address] [id number] [address] [place] [address], [place] [address] March, [facility] [address] [id number] [address] [place] [address], [place] [address] Feb, [facility] [address] [id number] [address] [place] [address], [place] [address] Feb, [facility] [address] [id number] [address] [place] [address], [place] [address] Feb, [facility] [address] [id number] [address] [place] [address], [place] [address] Jan, [facility] [address] [id number] [address] [place] [address], [place] [address] Jan, [facility] [address] [id number] [address] [place] [address], [place] [address] Jan, [facility] [address] [id number] [address] [place] [address], [place] [address] Jan, [facility] [address] [id number] [address] [place] [address], [place] [address] Jan, [facility] [address] [id number] [address] [place] [address], [place] [address] Jan, [facility] [address] [id number] [address] [place] [address], [place] [address] Jan, [facility] [address] [id number] [address] [place] [address], [place] [address] Jan, [facility] [address] [id number] [address] [place] [address], [place] [address] Dec, [facility] [address] [id number] [address] [place] [address], [place] [address] Dec, [facility] [address] [id number] [address] [place] [address], [place] [address] 13 Dec, 2012 [facility] [address] [id number] [address] [place] [address], [place] [address] 11 Dec, 2012 [facility] [address] [id number] [address] [place] [address], [place] [address] 07 Dec, 2012 [facility] [address] [id number] [address] [place] [address], [place] [address] 06 Dec, 2012 [facility] [address] [id number] [address] [place] [address], [place] [address] 05 Dec, 2012 [facility] [address] [id number] [address] [place] [address], [place] [address] Nov, [facility] [address] [id number] [address] [place] [address], [place] [address] Nov, [facility] [address] [id number] [address] [place] [address], [place] [address] Nov, [facility] [address] [id number] [address] [place] [address], [place] [address] Nov, [facility] [address] [id number] [address] [place] [address], [place] [address] Nov, [facility] [address] [id number] [address] [place] [address], [place] [address] Nov, [facility] [address] [id number] [address] [place] [address], [place] [address] Nov, [facility] [address] [id number] [address] [place] [address], [place] [address] Oct, [facility] [address] [id number] [address] [place] [address], [place] [address] Oct, [facility] [address] [id number] [address] [place] [address], [place] [address] Oct, [facility] [address] [id number] [address] [place] [address], [place] [address] Oct, [facility] [address] [id number] [address] [place] [address], [place] [address] Oct, [facility] [address] [id number] [address] [place] [address], [place] [address] Oct, [facility] [address] [id number] [address] [place] [address], [place] [address] Oct, [facility] [address] [id number] [address] [place] [address], [place] [address] Oct, [facility] [address] [id number] [address] [place] [address], [place] [address] Oct, [facility] [address] [id number] [address] [place] [address], [place] [address] Oct, [facility] [address] [id number] [address] [place] [address], [place] [address] Oct, [facility] [address] [id number] [address] [place] [address], [place] [address] Oct, [facility] [address] [id number] [address] [place] [address], [place] [address] Sep, [facility] [address] [id number] [address] [place] [address], [place] [address] Sep, [facility] [address] [id number] [address] [place] [address], [place] [address] Sep, [facility] [address] [id number] [address] [place] [address], [place] [address] Sep, [facility] [address] [id number] [address] [place] [address], [place] [address] Sep, [facility] [address] [id number] [address] [place] [address], [place] [address] Sep, [facility] [address] [id number] [address] [place] [address], [place] [address] Sep, [facility] [address] [id number] [address] [place] [address], [place] [address] Sep, [facility] [address] [id number] [address] [place] [address], [place] [address] Sep, [facility] [address] [id number] [address] [place] [address], [place] [address] Sep, [facility] [address] [id number] [address] [place] [address], [place] [address] Sep, [facility] [address] [id number] [address] [place] [address], [place] [address] Aug, [facility] [address] [id number] [address] [place] [address], [place] [address] Aug, [facility] [address] [id number] [address] [place] [address], [place] [address] Aug, [facility] [address] [id number] [address] [place] [address], [place] [address] Aug, [facility] [address] [id number] [address] [place] [address], [place] [address] Aug, [facility] [address] [id number] [address] [place] [address], [place] [address] Aug, [facility] [address] [id number] [address] [place] [address], [place] [address] Aug, [facility] [address] [id number] [address] [place] [address], [place] [address] Aug, [facility] [address] [id number] [address] [place] [address], [place] [address] Aug, [facility] [address] [id number] [address] [place] [address], [place] [address] Aug, [facility] [address] [id number] [address] [place] [address], [place] [address] 22 Jul, 2012 [facility] [address] [id number] [address] [place] [address], [place] [address] Jul, [facility] [address] [id number] [facility] [place] [address] Jul, [facility] [address] [id number] [address] [place] [address], [place] [address] Jul, [facility] [address] [id number] [address] [place] [address], [place] [address] Jun, [facility] [address] [id number] [address] [place] [address], [place] [address] Jun, [facility] [address] [id number] [address] [place] [address], [place] [address] Jun, [facility] [address] [id number] [address] [place] [address], [place] [address] Jun, [facility] [address] [id number] [address] [place] [address], [place] [address] Jun, [facility] [address] [id number] [address] [place] [address], [place] [address] Jun, [facility] [address] [id number] [address] [place] [address], [place] [address] Jun, [facility] [address] [id number] [address] [place] [address], [place] [address] May, [facility] [address] [id number] [address] [place] [address], [place] [address] May, [facility] [address] [id number] [address] [place] [address], [place] [address] May, [facility] [address] [id number] [address] [place] [address], [place] [address] May, [facility] [address] [id number] [address] [place] [address], [place] [address] May, [facility] [address] [id number] [address] [place] [address], [place] [address] Apr, [facility] [address] [id number] [address] [place] [address], [place] [address] 18 Apr, 2012 [facility] [address] [id number] [address] [place] [address], [place] [address] Apr, [facility] [address] [id number] [address] [place] [address], [place] [address] Apr, [facility] [address] [id number] [address] [place] [address], [place] [address] Apr, [facility] [address] [id number] [address] [place] [address], [place] [address] March, [facility] [address] [id number] [address] [place] [address], [place] [address] March, [facility] [address] [id number] [address] [place] [address], [place] [address] March, [facility] [address] [id number] [address] [place] [address], [place] [address] March, [facility] [address] [id number] [address] [place] [address], [place] [address] March, [facility] [address] [id number] [address] [place] [address], [place] [address] March, [facility] [address] [id number] [address] [place] [address], [place] [address] March, [facility] [address] [id number] [address] [place] [address], [place] [address] March, [facility] [address] [id number] [address] [place] [address], [place] [address] March, [facility] [address] [id number] [address] [place] [address], [place] [address] March, [facility] [address] [id number] [address] [place] [address], [place] [address] Feb, [facility] [address] [id number] [address] [place] [address], [place] [address] Feb, [facility] [address] [id number] [address] [place] [address], [place] [address] Feb, [facility] [address] [id number] [address] [place] [address], [place] [address] Feb, [facility] [address] [id number] [address] [place] [address], [place] [address] Feb, [facility] [address] [id number] [address] [place] [address], [place] [address] Feb, [facility] [address] [id number] [address] [place] [address], [place] [address] Feb, [facility] [address] [id number] [address] [place] [address], [place] [address] Feb, [facility] [address] [id number] [address] [place] [address], [place] [address] Feb, [facility] [address] [id number] [address] [place] [address], [place] [address] Jan, [facility] [address] [id number] [address] [place] [address], [place] [address] Jan, [facility] [address] [id number] [address] [place] [address], [place] [address] 05 Jan, 2012 [facility] [address] [id number] [address] [place] [address], [place] [address] Jan, [facility] [address] [id number] [address] [place] [address], [place] [address] Dec, [facility] [address] [id number] [address] [place] [address], [place] [address] Dec, [facility] [address] [id number] [address] [place] [address], [place] [address] Nov, [facility] [address] [id number] [address] [place] [address], [place] [address] Nov, [facility] [address] [id number] [address] [place] [id number] Nov, [facility] [address] [id number] [address] [place] [id number] Nov, [facility] [address] [id number] [address] [place] [id number] Nov, [facility] [address] [id number] [address] [place] [id number] Oct, [facility] [address] [id number] [address] [place] [id number] Oct, [facility] [address] [id number] [address] [place] [id number] Oct, [facility] [address] [id number] [address] [place] [id number] Oct, [facility] [address] [id number] [address] [place] [id number] Oct, [facility] [address] [id number] [address] [place] [id number] Oct, [facility] [address] [id number] [address] [place] [id number] Oct, [facility] [address] [id number] [address] [place] [address] [id number] Oct, [facility] [address] [id number] [address] [place] [id number] Sep, IMMUNIZATIONS No Known Immunizations SOCIAL HISTORY [...] Hospitalization History [facility]- Urosepsis, ab d pain and fever, discharged 11/27/2017 11/26/2017 Hospitalization History [facility]- Went Unrepsonsive, Hit head 2017 Hospitalization History [facility]- Back Pain 8
--- OUTSIDE RECORDS SUMMARY | 2020-06-18 15:42 | XMS REPORT ---
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 Name Role Phone Migration, Doctor Unavailable Unavailable PROBLEMS Type Condition ICD9-CM Code OJG52-PC Code Onset Dates Condition S tatus SNOMED Code Problem Hypertension I10 Active 3298091 3 Problem Hyperlipidemia E78.5 Active 62673 004 Problem Coronary artery disease I25.10 Active 21871346 Problem Low back pain M54.5 Active 436481 009 Problem Other chronic pain G89.29 Active 8 8836620 Problem Ventral hernia without obstruction or gangrene K43 .9 Active 676838111 Problem Type 2 diabetes mellitus wit hout complication, without long-term current use of insulin E11.9 Active 523942396 Problem Anxiety F41.9 Active 56885745 Problem Peripheral vascular disease I73.9 Ac tive 141182661 Problem Insomnia G47.00 Active 163215789 Problem Microcytic anemia D50.9 Active 23 2849396 Problem Pharyngeal dysphagia R13.13 Active 92087897183824 Problem Other iron deficiency anemia D50.8 A ctive 18660122 Problem Reactive depression F32.9 Active 57819620 Problem Paroxysmal atrial fibrillation I48.0 Active 617804345 Problem Postmenopausal atrophic vaginitis N95.2 Active 25760631 Problem Encounter for suprapubic catheter care Z43.5 Active 724050659 Problem Neurogenic bladder N31.9 Active 3 [id number] ALLERGIES No Information ENCOUNTERS Encounter Location Date Diagnosis [place] [address] [facility] [id number] [address] [place] [phone] 17 Apr, 2020 Anxiety F41.9 and Strain of right shoulder, subsequent encounter S46.911D [place] [address] [id number] [address] [place] [phone] 04 Apr, 2020 [facility] [address] [facility] [id number] [address] [place] [phone] March, [facility] [address] [id number] [address] [place] [phone] March, Anxiety F41.9 and Strain of right shoulder, subsequent encounter S46.911D [facility] [address] [id number] [address] [place], [place] [phone] Feb, Anxiety F41.9 and Strain of right shoulder, subsequent encounter S46.911D [facility] [address] [id number] [address] [place] [phone] Jan, Anxiety F41.9 and Strain of right shoulder, subsequent encounter S46.911D [facility] [address] [id number] [address] [place] [phone] Jan, Via [facility] [address] [place] [id number] Jan, Neurogenic bladder N31.9 [facility] [address] [id number] [address] [place] [phone] Dec, [facility] [address] [id number] [address] [place] [phone] Dec, [facility] [address] [id number] [address] [place] [phone] Dec, Anxiety F41.9 and Strain of right shoulder, subsequent encounter S46.911D [facility] [address] [id number] [address] [place] [phone] 10 Dec, 2019 Other iron deficiency anemia D50.8 [facility] [address] [id number] [address] [place] [phone] Dec, Via [facility] [address] [place] [id number] Dec, Encounter for suprapubic catheter care Z 43.5 and Microcytic anemia D50.9 [facility] [address] [id number] [address] [place] [phone] Dec, [facility] [address] [id number] [address] [place] [phone] Nov, Anxiety F41.9 and Strain of right shoulder, subsequent encounter S46.911D [facility] [address] [id number] [address] [place] [phone] Nov, Hypertension I10 Via [facility] [address] [place] [id number] Nov, Pneumonia of both lungs due to infectiou s organism, unspecified part of lung J18.9 and Suprapubic catheter Z93.59 [place] [address] [id number] [address] [place] [phone] Nov, Hypertension I10 and Reactiv e depression F32.9 [place] [address] [id number] [address] [place] [id number] Oct, Strain of right shoulder, scherer bsequent encounter S46.911D and Anxiety F41.9 [place] [address] [id number] [address] [place] [phone] Oct, Via [facility] [address] [place] [id number] Oct, Suprapubic catheter Z93.59 and Candidias is, intertriginous B37.2 [facility] [address] [id number] [address] [place] [phone] Oct, Suprapubic catheter Z93.59 [facility] [address] [id number] [address] [place] [phone] Oct, Anxiety F41.9 and Strain of right shoulder, subsequent encounter S46.911D [facility] [address] [id number] [address] [place] [phone] Sep, [place] [address] [id number] [address] [place] [phone] Sep, [place] [address] [id number] [address] [place] [phone] Sep, [facility] [address] [place] [id number] Sep, Suprapubic catheter Z93.59 [facility] [address] [id number] [address] [place] [phone] Sep, Anxiety F41.9 and Strain of right shoulder, subsequent encounter S46.911D [facility] [address] [id number] [address] [place] [phone] Aug, [facility] [address] [id number] [address] [place] [id number] Aug, [facility] [address] [id number] [address] [place] [phone] Aug, Anxiety F41.9 and Strain of right shoulder, subsequent encounter S46.911D [facility] [address] [place] [facility] [place] [id number] Aug, Suprapubic catheter Z93.59 [facility] [address] [id number] [address] [place] [phone] Jul, Strain of right shoulder, scherer bsequent encounter S46.911D and Anxiety F41.9 [facility] [address] [id number] [address] [place] [phone] Jul, Anxiety F41.9 [facility] [address] [id number] [address] [place] [phone] Jun, [facility] [address] [id number] [address] [place] [phone] Jun, [facility] [address] [id number] [address] [place] [phone] Jun, [facility] [address] [id number] [address] [place] [phone] Jun, Strain of right shoulder, scherer bsequent encounter S46.911D [facility] [address] [id number] [address] [place] [phone] Jun, Strain of right shoulder, scherer bsequent encounter S46.911D [place] [address] [id number] [address] [place] [phone] Jun, Anxiety F41.9 Via [facility] [address] [place] [id number] Jun, Neurogenic bladder N31.9 and Anxiety F41 .9 [facility] [address] [place] [id number] May, Anxiety F41.9 [place] [address] [id number] [address] [place] [phone] May, Dysuria R30.0 [place] [address] [id number] [address] [place] [phone] May, Strain of right shoulder, scherer bsequent encounter S46.911D and Anxiety F41.9 [place] [address] [id number] [address] [place] [phone] Apr, Via [facility] [address] [place] [id number] Apr, Strain of right shoulder, subsequent enc ounter S46.911D [place] [address] [id number] [address] [place] [phone] 14 Apr, 2019 Strain of right shoulder, scherer bsequent encounter S46.911D and Anxiety F41.9 [facility] [address] [place] [id number] 13 Apr, 2019 Type 2 diabetes mellitus without complic ation, without long-term current use of insulin E11.9 and Neurogenic bladder N31.9 [facility] [address] [place] [id number] Apr, Strain of right shoulder, subsequent enc ounter S46.911D ; History of GI bleed Z87.19 ; Neurogenic bladder N31.9 and Reactive depression F32.9 [place] [address] [id number] [address] [place] [id number] 10 Apr, 2019 Acute pain of left shoulder M25.512 [place] [address] [id number] [address] [place] [address] Apr, [facility] [address] [id number] [address] [place] [phone] Apr, Anxiety F41.9 and Other neonatal doctor 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 Via [facility] [address] [place] [id number] March, Gastrointestinal hemorrhage associated w ith acute gastritis K29.01 [facility] [address] [id number] [address] [place] [phone] March, Via [facility] [address] [place] [id number] March, Bronchitis J40 [facility] [address] [id number] [address] [place] [phone] March, Cough R05 [facility] [address] [id number] [address] [place] [address] March, Other chronic pain G89.29 [facility] [address] [id number] [address] [place] [phone] March, Anxiety F41.9 [facility] [address] [id number] [address] [place] [phone] March, [facility] [address] [id number] [address] [place] [phone] Feb, Other chronic pain G89.29 [facility] [address] [id number] [address] [place] [phone] Feb, Anxiety F41.9 [facility] [address] [id number] [address] [place] [phone] Feb, Other chronic pain G89.29 [facility] [address] [place] [id number] Feb, Neurogenic bladder N31.9 and Suprapubic catheter Z93.59 [facility] [address] [id number] [address] [place] [phone] Jan, Anxiety F41.9 [facility] [address] [id number] [address] [place] [phone] Dec, Anxiety F41.9 [facility] [address] [id number] [address] [place] [id number] Dec, Other chronic pain G89.29 an d Anxiety F41.9 [facility] [address] [id number] [address] [place] [phone] Dec, Via [facility] [address] [place] [id number] Dec, Neurogenic bladder N31.9 and Suprapubic catheter Z93.59 [facility] [address] [id number] [address] [place] [phone] Nov, Other chronic pain G89.29 an d Anxiety F41.9 [facility] [address] [id number] [address] [place] [phone] Nov, Via [facility] [address] [place] [id number] Nov, Suprapubic catheter Z93.59 [facility] [address] [id number] [address] [place] [phone] Oct, Other chronic pain G89.29 an d Anxiety F41.9 [facility] [address] [id number] [address] [place] [phone] Oct, [facility] [address] [id number] [address] [place] [phone] Oct, Suprapubic catheter Z93.59 [facility] [address] [id number] [address] [place] [phone] Oct, Via [facility] [address] [place] [id number] Oct, [facility] [address] [id number] [address] [place] [phone] Oct, Anxiety F41.9 [facility] [address] [id number] [address] [place] [phone] Oct, Anxiety F41.9 [facility] [address] [place] [id number] Oct, Other chronic pain G89.29 [facility] [address] [id number] [address] [place] [phone] Sep, Other chronic pain G89.29 Via [facility] [address] [place] [id number] Sep, Suprapubic catheter Z93.59 and Cervicalg ia M54.2 [facility] [address] [id number] [address] [place] [phone] Sep, [facility] [address] [id number] [address] [place] [phone] Sep, [facility] [address] [id number] [address] [place] [phone] Sep, [facility] [address] [place] [id number] Aug, Cystitis N30.90 [facility] [address] [id number] [address] [place] [phone] Aug, [facility] [address] [id number] [address] [place] [phone] Aug, Other chronic pain G89.29 [facility] [address] [id number] [address] [place] [phone] Aug, Via [facility] [address] [place] [id number] Aug, Encounter for suprapubic catheter care Z 43.5 [facility] [address] [id number] [address] [place] [phone] Jul, [facility] [address] [place] [id number] Jul, [facility] [address] [id number] [address] [place] [phone] Jul, Other chronic pain G89.29 [facility] [address] [id number] [address] [place] [phone] Jul, [facility] [address] [id number] [address] [place] [phone] Jul, Via [facility] [address] [place] [id number] Jun, Postmenopausal atrophic vaginitis N95.2 [facility] [address] [id number] [address] [place] [address] Jun, Other chronic pain G89.29 [facility] [address] [id number] [address] [place] [phone] Jun, Via [facility] [address] [place] [id number] May, Anxiety F41.9 ; Type 2 diabetes mellitus without complication, without long-term current use of insulin E11.9 ; Hypertension I10 ; Low back pain M54.5 ; Paroxysmal atrial fibrillation I48.0 and 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 [facility] [address] [id number] [address] [place] [phone] May, Other chronic pain G89.29 [facility] [address] [place] [id number] May, Low back pain M54.5 [facility] [address] [id number] [address] [place] [phone] May, [facility] [address] [id number] [address] [place] [address] Apr, Other chronic pain G89.29 [facility] [address] [id number] [address] [place] [phone] Apr, [facility] [address] [id number] [address] [place] [phone] Apr, Via [facility] [address] [place] [id number] Apr, Closed compression fracture of L3 lumbar vertebra with routine healing, subsequent encounter S32.030D [facility] [address] [place] [id number] 14 Apr, 2018 Low back pain M54.5 [facility] [address] [place] [id number] 12 Apr, 2018 Coccydynia M53.3 [facility] [address] [id number] [address] [place] [address] March, [facility] [address] [id number] [address] [place] [address] March, Other chronic pain G89.29 [facility] [address] [id number] [address] [place] [phone] March, [facility] [address] [id number] [address] [place] [phone] March, [facility] [address] [id number] [address] [place] [phone] Feb, [facility] [address] [id number] [address] [place] [phone] Feb, Other chronic pain G89.29 [facility] [address] [place] [id number] Feb, Other chronic pain G89.29 and Anxiety F4 1.9 [facility] [address] [id number] [address] [place] [phone] Feb, [facility] [address] [id number] [address] [place] [phone] Jan, [facility] [address] [id number] [address] [place] [phone] Jan, [facility] [address] [id number] [address] [place] [phone] Jan, [facility] [address] [id number] [address] [place] [phone] Jan, [facility] [address] [facility] [id number] [address] [place] [id number] Dec, [facility] [address] [place] [id number] Dec, Peripheral vascular disease I73.9 ; 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 ; Other chronic pain G89.29 ; Anxiety F41.9 ; Reactive depression F32.9 ; Insomnia G47.00 and Type 2 diabetes mellitus without complication, without long-term current use of insulin E11.[address] [id number] [address] Nov, [facility] [id number] [place] [id number] Nov, Anxiety F41.9 [facility] [address] [facility] [id number] [address] [place] [address] Nov, [facility] [address] [id number] [place] [id number] Nov, Anxiety F41.9 [facility] [address] [place] [id number] Nov, Status post surgery Z98.890 ; Confused R 41.0 ; Anxiety F41.9 and Other chronic pain G89.29 [facility] [address] [id number] [place] [id number] Nov, Other chronic pain G89.29 [facility] [address] [facility] [id number] [address] [place] [phone] Oct, [facility] [address] [id number] [place] [id number] Oct, Other chronic pain G89.29 [facility] [address] [facility] [id number] [address] [place] [address] Oct, Anxiety F41.9 [facility] [address] [id number] [place] [id number] Sep, Other chronic pain G89.29 [facility] [address] [id number] [place] [id number] Sep, [facility] [address] [place] [id number] Aug, Dysuria R30.0 and Anxiety F41.9 [facility] [address] [id number] [address] [place] [phone] Aug, [facility] [address] [id number] [place] [id number] Aug, Other chronic pain G89.29 [facility] [address] [id number] [address] [place] [address] Jul, Other chronic pain G89.29 [facility] [address] [id number] [place] [id number] Jun, [facility] [address] [id number] [place] [id number] Jun, Other chronic pain G89.29 [facility] [address] [id number] [address] [place] [phone] Jun, [facility] [address] [id number] [address] [place] [address] May, Other chronic pain G89.29 [facility] [address] [id number] [address] [place] [phone] Apr, Other chronic pain G89.29 [facility] [address] [place] [id number] Apr, Reactive depression F32.9 and Pharyngeal dysphagia R13.13 [facility] [address] [id number] [address] [place] [phone] Apr, Urinary tract infection with out hematuria, site unspecified N39.0 [facility] [address] [id number] [address] [place] [phone] March, Other chronic pain G89.29 [facility] [address] [id number] [address] [place] [phone] Feb, Other chronic pain G89.29 [facility] [address] [id number] [address] [place] [phone] Feb, [facility] [address] [id number] [facility] [facility] [place] [id number] Feb, [facility] [address] [place] [id number] Feb, Dysuria R30.0 and Ventral hernia without obstruction or gangrene K43.9 [facility] [address] [id number] [address] [place] [phone] Jan, Other chronic pain G89.29 [facility] [address] [id number] [place] [id number] Dec, Other chronic pain G89.29 [facility] [address] [facility] [id number] [address] [place] [phone] Nov, Other chronic pain G89.29 [facility] [address] [place] [id number] Nov, Lymphadenitis I88.9 [facility] [address] [facility] [id number] [address] [place] [address] Nov, Other chronic pain G89.29 [facility] [address] [facility] [id number] [address] [place] [phone] Nov, [facility] [address] [id number] [place] [id number] Nov, Other chronic pain G89.29 [facility] [address] [place] [id number] Oct, Low back pain M54.5 ; Hypertension I10 a nd Type 2 diabetes mellitus without complication, without long-term current use of insulin E11.9 [facility] [address] [facility] [id number] [address] [place] [id number] Oct, [facility] [address] [id number] [address] [place] [phone] Oct, [facility] [address] [id number] [address] [place] [phone] Oct, [facility] [address] [id number] [address] [place] [id number] Oct, [facility] [address] [id number] [address] [place] [id number] Sep, [facility] [address] [id number] [address] [place] [id number] Sep, [facility] [address] [id number] [address] [place] [id number] Aug, Other chronic pain G89.29 [facility] [address] [id number] [address] [place] [phone] Jul, [facility] [address] [id number] [address] [place] [id number] Jul, [facility] [address] [id number] [address] [place] [id number] Jul, [facility] [address] [id number] [address] [place] [id number] Jun, [facility] [address] [id number] [address] [place] [id number] Jun, Via [facility] [address] [place] [id number] Jun, Low back pain M54.5 ; Other chronic pain G89.29 and Coronary artery disease I25.10 [facility] [address] [id number] [address] [place] [id number] Jun, [facility] [address] [id number] [address] [place] [id number] May, [facility] [address] [id number] [address] [place] [id number] May, [facility] [address] [id number] [address] [place] [id number] 13 May, 2016 Other chronic pain G89.29 [facility] [address] [id number] [address] [place] [id number] 13 May, 2016 [facility] [address] [id number] [address] [place] [id number] 28 Apr, 2016 [facility] [address] [id number] [address] [place] [id number] 17 Apr, 2016 Acute cystitis without hemat uria N30.00 [facility] [address] [id number] [address] [place] [id number] 16 Apr, 2016 Acute cystitis without hemat uria N30.00 ; Coronary artery disease I25.10 ; Low back pain M54.5 and Other chronic pain G89.29 [facility] [address] [id number] [address] [place] [id number] 13 Apr, 2016 Other chronic pain G89.29 [facility] [address] [id number] [address] [place] [id number] March, Other chronic pain G89.29 [facility] [address] [id number] [address] [place] [id number] 18 Feb, 2016 [facility] [address] [id number] [address] [place] [id number] 15 Feb, 2016 Arthritis M19.90 [facility] [address] [id number] [address] [place] [id number] Feb, [facility] [address] [id number] [address] [place] [id number] 30 Jan, 2016 [facility] [address] [id number] [address] [place] [phone] Jan, [facility] [address] [id number] [address] [place] [id number] Jan, Other chronic pain G89.29 [facility] [address] [id number] [address] [place] [id number] Jan, Hypertension I10 ; Coronary artery disease I25.10 and Insomnia G47.00 [facility] [address] [id number] [address] [place] [phone] Jan, [facility] [address] [id number] [address] [place] [id number] Dec, Right hip pain M25.551 [facility] [address] [id number] [address] [place] [id number] Dec, [facility] [address] [id number] [address] [place] [id number] Dec, [facility] [address] [id number] [address] [place] [id number] Dec, [facility] [address] [id number] [address] [place] [phone] Dec, Other chronic pain G89.29 [facility] [address] [id number] [address] [place] [id number] Dec, [facility] [address] [id number] [address] [place] [id number] Nov, [facility] [address] [id number] [address] [place] [id number] Nov, Other chronic pain G89.29 [facility] [address] [id number] [address] [place] [id number] Nov, Right hip pain M25.551 and C oronary artery disease I25.10 [facility] [address] [id number] [address] [place] [id number] Nov, Other chronic pain G89.29 [facility] [address] [id number] [address] [place] [id number] Oct, [facility] [address] [facility] [id number] [address] [place] [id number] Oct, [facility] [address] [id number] [address] [place] [id number] Sep, [facility] [address] [id number] [address] [place] [phone] Sep, [facility] [address] [id number] [address] [place] [id number] Aug, [facility] [address] [id number] [address] [place] [id number] Aug, Hypertension I10 ; Coronary artery disease I25.10 and Arthritis M19.90 [facility] [address] [id number] [address] [place] [id number] Jun, [facility] [address] [facility] [id number] [address] [place] [phone] Jun, Essential hypertension, jayson gn 401.1 ; Other chronic pain 338.29 and Chronic airway obstruction, not elsewhere classified 496 [facility] [address] [id number] [address] [place] [id number] Jun, [facility] [address] [id number] [address] [place] [id number] Jun, [facility] [address] [facility] [id number] [address] [place] [phone] Jun, [facility] [address] [id number] [address] [place] [phone] May, [facility] [address] [id number] [address] [place] [phone] May, [facility] [address] [id number] [address] [place] [id number] Apr, [facility] [address] [id number] [address] [place] [id number] Apr, [facility] [address] [id number] [address] [place] [id number] Apr, [facility] [address] [id number] [address] [place] [address], [place] [address] March, [facility] [address] [id number] [address] [place] [address], [place] [address] March, [facility] [address] [id number] [address] [place] [address], [place] [address] March, [facility] [address] [id number] [address] [place] [address], [place] [address] March, [facility] [address] [id number] [address] [place] [address], [place] [address] March, Sialadenitis 527.2 [facility] [address] [id number] [address] [place] [address], [place] [address] Feb, [facility] [address] [id number] [address] [place] [address], [place] [address] Feb, [facility] [address] [id number] [address] [place] [address], [place] [address] Feb, [facility] [address] [id number] [address] [place] [address], [place] [address] Feb, [facility] [address] [id number] [address] [place] [address], [place] [address] Feb, [facility] [address] [id number] [address] [place] [address], [place] [address] Jan, [facility] [address] [id number] [address] [place] [phone] Jan, [facility] [address] [id number] [address] [place] [address], [place] [address] Jan, [facility] [address] [id number] [address] [place] [address], [place] [address] Jan, [facility] [address] [id number] [address] [place] [address], [place] [address] Jan, [facility] [address] [id number] [address] [place] [phone] Jan, [facility] [address] [id number] [address] [place] [address], [place] [address] Dec, [facility] [address] [id number] [address] [place] [address], [place] [address] Dec, [facility] [address] [id number] [address] [place] [address], [place] [address] Dec, [facility] [address] [id number] [address] [place] [address], [place] [address] Dec, [facility] [address] [id number] [address] [place] [address], [place] [address] Dec, [facility] [address] [id number] [address] [place] [address], [place] [address] Dec, [facility] [address] [id number] [address] [place] [address], [place] [address] Nov, [facility] [address] [id number] [address] [place] [address], [place] [address] Nov, [facility] [address] [id number] [address] [place] [address], [place] [address] Nov, [facility] [address] [id number] [address] [place] [address], [place] [address] Nov, [facility] [address] [id number] [address] [place] [address], [place] [address] Nov, [facility] [address] [id number] [address] [place] [address], [place] [address] Nov, [facility] [address] [id number] [address] [place] [address], [place] [address] Nov, [facility] [address] [id number] [address] [place] [address], [place] [address] Nov, [facility] [address] [id number] [address] [place] [address], [place] [address] Nov, [facility] [address] [id number] [address] [place] [address], [place] [address] Nov, [facility] [address] [id number] [address] [place] [address], [place] [address] Nov, [facility] [address] [id number] [address] [place] [address], [place] [address] Nov, [facility] [address] [id number] [address] [place] [address], [place] [address] Nov, [facility] [address] [id number] [address] [place] [address], [place] [address] Nov, [facility] [address] [id number] [address] [place] [address], [place] [address] Oct, [facility] [address] [id number] [address] [place] [address], [place] [address] Oct, [facility] [address] [id number] [address] [place] [address], [place] [address] Oct, [facility] [address] [id number] [address] [place] [address], [place] [address] Oct, [facility] [address] [id number] [address] [place] [address], [place] [address] Oct, [facility] [address] [id number] [address] [place] [address], [place] [address] 17 Oct, 2014 [facility] [address] [id number] [address] [place] [address], [place] [address] 17 Oct, 2014 [facility] [address] [id number] [address] [place] [address], [place] [address] Oct, [facility] [address] [id number] [address] [place] [address], [place] [address] Oct, [facility] [address] [id number] [address] [place] [address], [place] [address] Sep, [facility] [address] [id number] [address] [place] [address], [place] [address] Sep, [facility] [address] [id number] [address] [place] [address], [place] [address] Sep, [facility] [address] [id number] [address] [place] [address], [place] [address] Sep, [facility] [address] [id number] [address] [place] [address], [place] [address] Sep, [facility] [address] [id number] [address] [place] [address], [place] [address] Sep, [facility] [address] [id number] [address] [place] [address], [place] [address] Sep, [facility] [address] [id number] [address] [place] [address], [place] [address] Sep, [facility] [address] [id number] [address] [place] [address], [place] [address] Sep, [facility] [address] [id number] [address] [place] [address], [place] [address] Sep, [facility] [address] [id number] [address] [place] [address], [place] [address] Sep, [facility] [address] [id number] [address] [place] [address], [place] [address] Sep, [facility] [address] [id number] [address] [place] [address], [place] [address] Aug, [facility] [address] [id number] [address] [place] [address], [place] [address] Aug, [facility] [address] [id number] [address] [place] [address], [place] [address] Aug, [facility] [address] [id number] [address] [place] [address], [place] [address] Aug, [facility] [address] [id number] [address] [place] [address], [place] [address] Aug, [facility] [address] [id number] [address] [place] [address], [place] [address] 28 Aug, 2014 [facility] [address] [id number] [address] [place] [address], [place] [address] Aug, [facility] [address] [id number] [address] [place] [address], [place] [address] 17 Aug, 2014 [facility] [address] [id number] [address] [place] [address], [place] [address] 30 Jul, 2013 [facility] [address] [id number] [address] [place] [address], [place] [address] 30 Jul, 2013 [facility] [address] [id number] [address] [place] [address], [place] [address] 30 Jul, 2013 [facility] [address] [id number] [address] [place] [address], [place] [address] 30 Jul, 2013 [facility] [address] [id number] [address] [place] [address], [place] [address] 25 Jul, 2013 [facility] [address] [id number] [address] [place] [address], [place] [address] 25 Jul, 2013 [facility] [address] [id number] [address] [place] [address], [place] [address] 15 Jul, 2014 [facility] [address] [id number] [address] [place] [address], [place] [address] 15 Jul, 2014 [facility] [address] [id number] [address] [place] [address], [place] [address] 11 Jul, 2014 [facility] [address] [id number] [address] [place] [address], [place] [address] Jul, [facility] [address] [id number] [address] [place] [address], [place] [address] Jun, [facility] [address] [id number] [address] [place] [address], [place] [address] Jun, [facility] [address] [id number] [address] [place] [address], [place] [address] Jun, [facility] [address] [id number] [facility] [place] [address] Jun, [facility] [address] [id number] [address] [place] [address], [place] [address] Jun, [facility] [address] [id number] [address] [place] [address], [place] [address] Jun, [facility] [address] [id number] [address] [place] [address], [place] [address] Jun, [facility] [address] [id number] [address] [place] [address], [place] [address] Jun, [facility] [address] [id number] [address] [place] [address], [place] [address] Jun, [facility] [address] [id number] [address] [place] [address], [place] [address] Jun, [facility] [address] [id number] [address] [place] [address], [place] [address] Jun, [facility] [address] [id number] [address] [place] [address], [place] [address] Jun, [facility] [address] [id number] [address] [place] [address], [place] [address] Jun, [facility] [address] [id number] [address] [place] [address], [place] [address] Jun, [facility] [address] [id number] [address] [place] [address], [place] [address] Jun, [facility] [address] [id number] [address] [place] [address], [place] [address] Jun, [facility] [address] [id number] [address] [place] [address], [place] [address] Jun, [facility] [address] [id number] [address] [place] [address], [place] [address] Jun, [facility] [address] [id number] [address] [place] [address], [place] [address] Jun, [facility] [address] [id number] [facility] [place] [address] Jun, [facility] [address] [id number] [address] [place] [address], [place] [address] Jun, [facility] [address] [id number] [address] [place] [address], [place] [address] Jun, [facility] [address] [id number] [address] [place] [address], [place] [address] May, [facility] [address] [id number] [address] [place] [address], [place] [address] May, [facility] [address] [id number] [address] [place] [address], [place] [address] May, [facility] [address] [id number] [address] [place] [address], [place] [address] May, [facility] [address] [id number] [address] [place] [address], [place] [address] May, [facility] [address] [id number] [address] [place] [address], [place] [address] May, [facility] [address] [id number] [address] [place] [address], [place] [address] May, [facility] [address] [id number] [address] [place] [address], [place] [address] May, [facility] [address] [id number] [address] [place] [address], [place] [address] May, [facility] [address] [id number] [address] [place] [address], [place] [address] May, [facility] [address] [id number] [address] [place] [address], [place] [address] May, [facility] [address] [id number] [address] [place] [address], [place] [address] May, [facility] [address] [id number] [facility] [place] [address] May, [facility] [address] [id number] [facility] [place] [address] Apr, [facility] [address] [id number] [facility] [place] [address] Apr, [facility] [address] [id number] [facility] [place] [address] Apr, [facility] [address] [id number] [facility] [place] [address] Apr, [facility] [address] [id number] [facility] [place] [address] Apr, [facility] [address] [id number] [address] [place] [address], [place] [address] Apr, [facility] [address] [id number] [address] [place] [address], [place] [address] Apr, [facility] [address] [id number] [address] [place] [address], [place] [address] Apr, [facility] [address] [id number] [address] [place] [address], [place] [address] Apr, [facility] [address] [id number] [address] [place] [address], [place] [address] March, [facility] [address] [id number] [address] [place] [address], [place] [address] March, [facility] [address] [id number] [address] [place] [address], [place] [address] March, [facility] [address] [id number] [address] [place] [address], [place] [address] March, [facility] [address] [id number] [address] [place] [address], [place] [address] March, [facility] [address] [id number] [address] [place] [address], [place] [address] March, [facility] [address] [id number] [facility] [place] [address] March, [facility] [address] [id number] [address] [place] [address], [place] [address] March, [facility] [address] [id number] [address] [place] [address], [place] [address] March, [facility] [address] [id number] [address] [place] [address], [place] [address] March, [facility] [address] [id number] [address] [place] [address], [place] [address] March, [facility] [address] [id number] [address] [place] [address], [place] [address] March, [facility] [address] [id number] [address] [place] [address], [place] [address] March, [facility] [address] [id number] [address] [place] [address], [place] [address] March, [facility] [address] [id number] [address] [place] [address], [place] [address] March, [facility] [address] [id number] [address] [place] [address], [place] [address] March, [facility] [address] [id number] [address] [place] [address], [place] [address] March, [facility] [address] [id number] [address] [place] [address], [place] [address] March, [facility] [address] [id number] [address] [place] [address], [place] [address] March, [facility] [address] [id number] [address] [place] [address], [place] [address] March, [facility] [address] [id number] [address] [place] [address], [place] [address] Feb, [facility] [address] [id number] [facility] [place] [address] Feb, [facility] [address] [id number] [address] [place] [address], [place] [address] Feb, [facility] [address] [id number] [facility] [place] [address] Feb, [facility] [address] [id number] [address] [place] [address], [place] [address] Feb, [facility] [address] [id number] [address] [place] [address], [place] [address] Feb, [facility] [address] [id number] [address] [place] [address], [place] [address] Feb, [facility] [address] [id number] [address] [place] [address], [place] [address] Feb, [facility] [address] [id number] [address] [place] [address], [place] [address] Jan, [facility] [address] [id number] [address] [place] [address], [place] [address] Jan, [facility] [address] [id number] [address] [place] [address], [place] [address] Jan, [facility] [address] [id number] [address] [place] [address], [place] [address] Jan, [facility] [address] [id number] [address] [place] [address], [place] [address] Jan, [facility] [address] [id number] [address] [place] [address], [place] [address] Jan, [facility] [address] [id number] [address] [place] [address], [place] [address] Jan, [facility] [address] [id number] [address] [place] [address], [place] [address] Jan, [facility] [address] [id number] [address] [place] [address], [place] [address] Jan, [facility] [address] [id number] [facility] [place] [address] Jan[facility] [facility] [address] [id number] [address] [place] [address], [place] [address] Dec, [facility] [address] [id number] [address] [place] [address], [place] [address] Dec, [facility] [address] [id number] [address] [place] [address], [place] [address] Dec, [facility] [address] [id number] [address] [place] [address], [place] [address] Dec, [facility] [address] [id number] [address] [place] [address], [place] [address] Dec, [facility] [address] [id number] [address] [place] [address], [place] [address] Dec, [facility] [address] [id number] [address] [place] [address], [place] [address] Dec, [facility] [address] [id number] [address] [place] [address], [place] [address] Dec, [facility] [address] [id number] [address] [place] [address], [place] [address] Nov, [facility] [address] [id number] [address] [place] [address], [place] [address] Nov, [facility] [address] [id number] [address] [place] [address], [place] [address] Nov, [facility] [address] [id number] [address] [place] [address], [place] [address] Nov, [facility] [address] [id number] [address] [place] [address], [place] [address] Nov, [facility] [address] [id number] [address] [place] [address], [place] [address] Nov, [facility] [address] [id number] [address] [place] [address], [place] [address] Nov, [facility] [address] [id number] [address] [place] [address], [place] [address] Nov, [facility] [address] [id number] [address] [place] [address], [place] [address] Nov, [facility] [address] [id number] [address] [place] [address], [place] [address] Nov, [facility] [address] [id number] [address] [place] [address], [place] [address] Nov, [facility] [address] [id number] [address] [place] [address], [place] [address] Nov, [facility] [address] [id number] [address] [place] [address], [place] [address] Nov, [facility] [address] [id number] [address] [place] [address], [place] [address] Oct, [facility] [address] [id number] [address] [place] [address], [place] [address] 30 Oct, 2013 [facility] [address] [id number] [address] [place] [address], [place] [address] Oct, [facility] [address] [id number] [address] [place] [address], [place] [address] Oct, [facility] [address] [id number] [address] [place] [address], [place] [address] Oct, [facility] [address] [id number] [address] [place] [address], [place] [address] Oct, [facility] [address] [id number] [address] [place] [address], [place] [address] 18 Oct, 2013 [facility] [address] [id number] [address] [place] [address], [place] [address] 18 Oct, 2013 [facility] [address] [id number] [address] [place] [address], [place] [address] Oct, [facility] [address] [id number] [address] [place] [address], [place] [address] Oct, [facility] [address] [id number] [address] [place] [address], [place] [address] Oct, [facility] [address] [id number] [address] [place] [address], [place] [address] Oct, [facility] [address] [id number] [address] [place] [address], [place] [address] Oct, [facility] [address] [id number] [address] [place] [address], [place] [address] Oct, [facility] [address] [id number] [address] [place] [address], [place] [address] Sep, [facility] [address] [id number] [address] [place] [address], [place] [address] Sep, [facility] [address] [id number] [address] [place] [address], [place] [address] Sep, [facility] [address] [id number] [address] [place] [address], [place] [address] Sep, [facility] [address] [id number] [address] [place] [address], [place] [address] Sep, [facility] [address] [id number] [address] [place] [address], [place] [address] Sep, [facility] [address] [id number] [address] [place] [address], [place] [address] Sep, [facility] [address] [id number] [address] [place] [address], [place] [address] Sep, [facility] [address] [id number] [address] [place] [address], [place] [address] Sep, [facility] [address] [id number] [address] [place] [address], [place] [address] Sep, [facility] [address] [id number] [address] [place] [address], [place] [address] Aug, [facility] [address] [id number] [address] [place] [address], [place] [address] Aug, [facility] [address] [id number] [address] [place] [id number] Aug, [facility] [address] [id number] [address] [place] [id number] Aug, [facility] [address] [id number] [address] [place] [id number] Aug, [facility] [address] [id number] [address] [place] [address], [place] [address] Aug, [facility] [address] [id number] [address] [place] [id number] Aug, [facility] [address] [id number] [address] [place] [address] Aug, [facility] [address] [id number] [address] [place] [id number] Aug, [facility] [address] [id number] [address] [place] [id number] Aug, [facility] [address] [id number] [address] [place] [id number] 18 Aug, 2013 [facility] [address] [id number] [address] [place] [id number] 18 Aug, 2013 [facility] [address] [id number] [address] [place] [id number] 18 Aug, 2013 [facility] [address] [id number] [address] [place] [address], [place] [address] 18 Aug, 2013 [facility] [address] [id number] [address] [place] [id number] 17 Aug, 2013 [facility] [address] [id number] [address] [place] [id number] 14 Aug, 2013 [facility] [address] [id number] [address] [place] [address], [place] [address] 14 Aug, 2013 [facility] [address] [id number] [address] [place] [address], [place] [address] 01 Aug, 2013 [facility] [address] [id number] [address] [place] [address], [place] [address] 20 Jul, 2013 [facility] [address] [id number] [address] [place] [address], [place] [address] 19 Jul, 2013 [facility] [address] [id number] [address] [place] [address], [place] [address] 18 Jul, 2013 [facility] [address] [id number] [address] [place] [address], [place] [address] 11 Jul, 2013 [facility] [address] [id number] [address] [place] [address], [place] [address] Jul, [facility] [address] [id number] [address] [place] [address], [place] [address] Jun, [facility] [address] [id number] [address] [place] [address], [place] [address] Jun, [facility] [address] [id number] [address] [place] [address], [place] [address] Jun, [facility] [address] [id number] [address] [place] [address], [place] [address] 15 Jun, 2013 [facility] [address] [id number] [address] [place] [address], [place] [address] 14 Jun, 2013 [facility] [address] [id number] [address] [place] [address], [place] [address] Jun, [facility] [address] [id number] [address] [place] [address], [place] [address] Jun, [facility] [address] [id number] [address] [place] [address], [place] [address] 08 Jun, 2013 [facility] [address] [id number] [address] [place] [address], [place] [address] Jun, [facility] [address] [id number] [address] [place] [address], [place] [address] Jun, [facility] [address] [id number] [address] [place] [address], [place] [address] May, [facility] [address] [id number] [address] [place] [address], [place] [address] May, [facility] [address] [id number] [address] [place] [address], [place] [address] May, [facility] [address] [id number] [address] [place] [address], [place] [address] May, [facility] [address] [id number] [address] [place] [address], [place] [address] May, [facility] [address] [id number] [address] [place] [address], [place] [address] May, [facility] [address] [id number] [address] [place] [address], [place] [address] May, [facility] [address] [id number] [address] [place] [address], [place] [address] May, [facility] [address] [id number] [address] [place] [address], [place] [address] May, [facility] [address] [id number] [address] [place] [address], [place] [address] Apr, [facility] [address] [id number] [address] [place] [address], [place] [address] Apr, [facility] [address] [id number] [address] [place] [address], [place] [address] Apr, [facility] [address] [id number] [address] [place] [address], [place] [address] Apr, [facility] [address] [id number] [address] [place] [address], [place] [address] Apr, [facility] [address] [id number] [address] [place] [address], [place] [address] 04 Apr, 2013 [facility] [address] [id number] [address] [place] [address], [place] [address] Apr, [facility] [address] [id number] [address] [place] [address], [place] [address] March, [facility] [address] [id number] [address] [place] [address], [place] [address] Feb, [facility] [address] [id number] [address] [place] [address], [place] [address] Feb, [facility] [address] [id number] [address] [place] [address], [place] [address] Feb, [facility] [address] [id number] [address] [place] [address], [place] [address] Jan, [facility] [address] [id number] [address] [place] [address], [place] [address] Jan, [facility] [address] [id number] [address] [place] [address], [place] [address] Jan, [facility] [address] [id number] [address] [place] [address], [place] [address] Jan, [facility] [address] [id number] [address] [place] [address], [place] [address] Jan, [facility] [address] [id number] [address] [place] [address], [place] [address] Jan, [facility] [address] [id number] [address] [place] [address], [place] [address] Jan, [facility] [address] [id number] [address] [place] [address], [place] [address] Jan, [facility] [address] [id number] [address] [place] [address], [place] [address] Dec, [facility] [address] [id number] [address] [place] [address], [place] [address] Dec, [facility] [address] [id number] [address] [place] [address], [place] [address] 13 Dec, 2012 [facility] [address] [id number] [address] [place] [address], [place] [address] 11 Dec, 2012 [facility] [address] [id number] [address] [place] [address], [place] [address] 07 Dec, 2012 [facility] [address] [id number] [address] [place] [address], [place] [address] 06 Dec, 2012 [facility] [address] [id number] [address] [place] [address], [place] [address] 05 Dec, 2012 [facility] [address] [id number] [address] [place] [address], [place] [address] Nov, [facility] [address] [id number] [address] [place] [address], [place] [address] Nov, [facility] [address] [id number] [address] [place] [address], [place] [address] Nov, [facility] [address] [id number] [address] [place] [address], [place] [address] Nov, [facility] [address] [id number] [address] [place] [address], [place] [address] Nov, [facility] [address] [id number] [address] [place] [address], [place] [address] Nov, [facility] [address] [id number] [address] [place] [address], [place] [address] Nov, [facility] [address] [id number] [address] [place] [address], [place] [address] Oct, [facility] [address] [id number] [address] [place] [address], [place] [address] Oct, [facility] [address] [id number] [address] [place] [address], [place] [address] Oct, [facility] [address] [id number] [address] [place] [address], [place] [address] Oct, [facility] [address] [id number] [address] [place] [address], [place] [address] Oct, [facility] [address] [id number] [address] [place] [address], [place] [address] Oct, [facility] [address] [id number] [address] [place] [address], [place] [address] Oct, [facility] [address] [id number] [address] [place] [address], [place] [address] Oct, [facility] [address] [id number] [address] [place] [address], [place] [address] Oct, [facility] [address] [id number] [address] [place] [address], [place] [address] Oct, [facility] [address] [id number] [address] [place] [address], [place] [address] Oct, [facility] [address] [id number] [address] [place] [address], [place] [address] Oct, [facility] [address] [id number] [address] [place] [address], [place] [address] Sep, [facility] [address] [id number] [address] [place] [address], [place] [address] Sep, [facility] [address] [id number] [address] [place] [address], [place] [address] Sep, [facility] [address] [id number] [address] [place] [address], [place] [address] Sep, [facility] [address] [id number] [address] [place] [address], [place] [address] Sep, [facility] [address] [id number] [address] [place] [address], [place] [address] Sep, [facility] [address] [id number] [address] [place] [address], [place] [address] Sep, [facility] [address] [id number] [address] [place] [address], [place] [address] Sep, [facility] [address] [id number] [address] [place] [address], [place] [address] Sep, [facility] [address] [id number] [address] [place] [address], [place] [address] Sep, [facility] [address] [id number] [address] [place] [address], [place] [address] Sep, [facility] [address] [id number] [address] [place] [address], [place] [address] Aug, [facility] [address] [id number] [address] [place] [address], [place] [address] Aug, [facility] [address] [id number] [address] [place] [address], [place] [address] Aug, [facility] [address] [id number] [address] [place] [address], [place] [address] Aug, [facility] [address] [id number] [address] [place] [address], [place] [address] Aug, [facility] [address] [id number] [address] [place] [address], [place] [address] Aug, [facility] [address] [id number] [address] [place] [address], [place] [address] Aug, [facility] [address] [id number] [address] [place] [address], [place] [address] Aug, [facility] [address] [id number] [address] [place] [address], [place] [address] Aug, [facility] [address] [id number] [address] [place] [address], [place] [address] Aug, [facility] [address] [id number] [address] [place] [address], [place] [address] 22 Jul, 2012 [facility] [address] [id number] [address] [place] [address], [place] [address] Jul, [facility] [address] [id number] [facility] [place] [address] Jul, [facility] [address] [id number] [address] [place] [address], [place] [address] Jul, [facility] [address] [id number] [address] [place] [address], [place] [address] Jun, [facility] [address] [id number] [address] [place] [address], [place] [address] Jun, [facility] [address] [id number] [address] [place] [address], [place] [address] Jun, [facility] [address] [id number] [address] [place] [address], [place] [address] Jun, [facility] [address] [id number] [address] [place] [address], [place] [address] Jun, [facility] [address] [id number] [address] [place] [address], [place] [address] Jun, [facility] [address] [id number] [address] [place] [address], [place] [address] Jun, [facility] [address] [id number] [address] [place] [address], [place] [address] May, [facility] [address] [id number] [address] [place] [address], [place] [address] May, [facility] [address] [id number] [address] [place] [address], [place] [address] May, [facility] [address] [id number] [address] [place] [address], [place] [address] May, [facility] [address] [id number] [address] [place] [address], [place] [address] May, [facility] [address] [id number] [address] [place] [address], [place] [address] Apr, [facility] [address] [id number] [address] [place] [address], [place] [address] 18 Apr, 2012 [facility] [address] [id number] [address] [place] [address], [place] [address] Apr, [facility] [address] [id number] [address] [place] [address], [place] [address] Apr, [facility] [address] [id number] [address] [place] [address], [place] [address] Apr, [facility] [address] [id number] [address] [place] [address], [place] [address] March, [facility] [address] [id number] [address] [place] [address], [place] [address] March, [facility] [address] [id number] [address] [place] [address], [place] [address] March, [facility] [address] [id number] [address] [place] [address], [place] [address] March, [facility] [address] [id number] [address] [place] [address], [place] [address] March, [facility] [address] [id number] [address] [place] [address], [place] [address] March, [facility] [address] [id number] [address] [place] [address], [place] [address] March, [facility] [address] [id number] [address] [place] [address], [place] [address] March, [facility] [address] [id number] [address] [place] [address], [place] [address] March, [facility] [address] [id number] [address] [place] [address], [place] [address] March, [facility] [address] [id number] [address] [place] [address], [place] [address] Feb, [facility] [address] [id number] [address] [place] [address], [place] [address] Feb, [facility] [address] [id number] [address] [place] [address], [place] [address] Feb, [facility] [address] [id number] [address] [place] [address], [place] [address] Feb, [facility] [address] [id number] [address] [place] [address], [place] [address] Feb, [facility] [address] [id number] [address] [place] [address], [place] [address] Feb, [facility] [address] [id number] [address] [place] [address], [place] [address] Feb, [facility] [address] [id number] [address] [place] [address], [place] [address] Feb, [facility] [address] [id number] [address] [place] [address], [place] [address] Feb, [facility] [address] [id number] [address] [place] [address], [place] [address] Jan, [facility] [address] [id number] [address] [place] [address], [place] [address] Jan, [facility] [address] [id number] [address] [place] [address], [place] [address] 05 Jan, 2012 [facility] [address] [id number] [address] [place] [address], [place] [address] Jan, [facility] [address] [id number] [address] [place] [address], [place] [address] Dec, [facility] [address] [id number] [address] [place] [address], [place] [address] Dec, [facility] [address] [id number] [address] [place] [address], [place] [address] Nov, [facility] [facility] [address] [id number] [address] [place] [address], [place] [id number] Nov, [facility] [address] [id number] [address] [place] [id number] Nov, [facility] [address] [id number] [address] [place] [id number] Nov, [facility] [address] [id number] [address] [place] [phone] Nov, [facility] [address] [id number] [address] [place] [id number] Oct, [facility] [address] [id number] [address] [place] [phone] Oct, [facility] [address] [id number] [address] [place] [phone] Oct, [facility] [address] [id number] [address] [place] [id number] Oct, [facility] [address] [id number] [address] [place] [phone] Oct, [facility] [address] [id number] [address] [place] [phone] Oct, [facility] [address] [id number] [address] [place] [phone] Oct, [facility] [address] [id number] [address] [place] [phone] Oct, [facility] [address] [id number] [address] [place] [phone] Sep, IMMUNIZATIONS Vaccine Route Administration Date Status PRIVATE ZOSTAVAX (HERPES ZOSTER) Unknown Sep 22, 2013 Administered SOCIAL HISTORY Never Assessed REASON FOR VISIT PLAN OF CARE VITAL SIGNS Height 62 in 2013-09-22 Weight 178 lbs 2013-09-22 Temperature 97.5 degrees Fahrenheit 2013-09-22 Heart Rate 80 bpm 2013-09-22 Respiratory Rate 24 2013-09-22 Blood pressure systolic 140 mmHg 2013-09-22 Blood pressure diastolic 78 mmHg 2013-09-22 MEDICATIONS Unknown Medications RESULTS No Results PROCEDURES [...] 11/27/2017 11/26/2017 Hospitalization History [facility]- Went Unrepsonsive, Hit head 2017 Hospitalization History [facility]- Back Pain 05/05/ 8
--- OUTSIDE RECORDS SUMMARY | 2020-06-18 15:43 | XMS REPORT ---
Author Author Sanjuanita Sanchez [facility] Address [address] [place] [address] Care Team Providers Care Bleach Chlorinator Name Role Phone MARIA DE JESUS Sanchez Unavailable PROBLEMS Type Condition ICD9-CM Code KTC68-SW Code Onset Dates Condition S tatus SNOMED Code Problem Hypertension I10 Active 0098661 3 Problem Hyperlipidemia E78.5 Active 73599 004 Problem Coronary artery disease I25.10 Active 99501493 Problem Low back pain M54.5 Active 363105 009 Problem Other chronic pain G89.29 Active 8 6193180 Problem Ventral hernia without obstruction or gangrene K43 .9 Active 708375211 Problem Type 2 diabetes mellitus wit hout complication, without long-term current use of insulin E11.9 Active 168618189 Problem Anxiety F41.9 Active 85311087 Problem Peripheral vascular disease I73.9 Ac tive 432799325 Problem Insomnia G47.00 Active 478519971 Problem Microcytic anemia D50.9 Active 23 4631397 Problem Pharyngeal dysphagia R13.13 Active 31764328329270 Problem Other iron deficiency anemia D50.8 A ctive 46418602 Problem Reactive depression F32.9 Active 51681713 Problem Paroxysmal atrial fibrillation I48.0 Active 048919074 Problem Postmenopausal atrophic vaginitis N95.2 Active 34498244 Problem Encounter for suprapubic catheter care Z43.5 Active 341619181 Problem Neurogenic bladder N31.9 Active 3 25079844 ALLERGIES No Information ENCOUNTERS Encounter Location Date Diagnosis [facility] [address] [facility] [id number] [address] [place] [address] 17 Apr, 2020 Anxiety F41.9 and Strain of right shoulder, subsequent encounter S46.911D [facility] [address] [facility] [id number] [address] [place] [id number] 04 Apr, 2020 [facility] [address] [id number] [address] [place] [address] March, [facility] [address] [id number] [address] [place] [address] March, Anxiety F41.9 and Strain of right shoulder, subsequent encounter S46.911D [facility] [address] [id number] [address] [place] [address] Feb, Anxiety F41.9 and Strain of right shoulder, subsequent encounter S46.911D [facility] [address] [id number] [address] [place] [address] Jan, Anxiety F41.9 and Strain of right shoulder, subsequent encounter S46.911D [facility] [address] [id number] [address] [place] [id number] Jan, [facility] [address] [place] [id number] Jan, Neurogenic bladder N31.9 [facility] [address] [id number] [address] [place] [phone] Dec, [facility] [address] [id number] [address] [place] [phone] Dec, [facility] [address] [id number] [address] [place] [address] 24 Dec, 2019 Anxiety F41.9 and Strain of right shoulder, subsequent encounter S46.911D [facility] [address] [id number] [address] [place] [address] 10 Dec, 2019 Other iron deficiency anemia D50.8 [facility] [address] [id number] [address] [place] [address] Dec, Via [facility] [address] [place] [id number] Dec, Encounter for suprapubic catheter care Z 43.5 and Microcytic anemia D50.9 [facility] [facility] [address] [id number] [address] [place] [address] Dec, [facility] [address] [id number] [address] [place] [address] Nov, Anxiety F41.9 and Strain of right shoulder, subsequent encounter S46.911D [facility] [address] [id number] [address] [place] [address] Nov, Hypertension I10 Via [facility] [address] [place] [id number] Nov, Pneumonia of both lungs due to infectiou s organism, unspecified part of lung J18.9 and Suprapubic catheter Z93.59 [facility] [address] [id number] [address] [place] [address] Nov, Hypertension I10 and Reactiv e depression F32.9 [facility] [address] [id number] [address] [place] [id number] Oct, Strain of right shoulder, scherer bsequent encounter S46.911D and Anxiety F41.9 [facility] [address] [id number] [address] [place] [id number] Oct, Via [facility] [address] [place] [id number] Oct, Suprapubic catheter Z93.59 and Candidias is, intertriginous B37.2 [facility] [address] [id number] [address] [place] [address] Oct, Suprapubic catheter Z93.59 [facility] [address] [id number] [address] [place] [address] Oct, Anxiety F41.9 and Strain of right shoulder, subsequent encounter S46.911D [facility] [address] [id number] [address] [place] [address] Sep, [facility] [address] [id number] [address] [place] [phone] Sep, [facility] [address] [id number] [address] [place] [address] Sep, Via [facility] [address] [place] [id number] Sep, Suprapubic catheter Z93.59 [facility] [address] [id number] [address] [place] [address] Sep, Anxiety F41.9 and Strain of right shoulder, subsequent encounter S46.911D [facility] [address] [id number] [address] [place] [address] Aug, [facility] [address] [id number] [address] [place] [address] Aug, [facility] [address] [id number] [address] [place] [address] Aug, Anxiety F41.9 and Strain of right shoulder, subsequent encounter S46.911D [facility] [address] [place] [id number] Aug, Suprapubic catheter Z93.59 [facility] [address] [id number] [address] [place] [address] Jul, Strain of right shoulder, scherer bsequent encounter S46.911D and Anxiety F41.9 [facility] [address] [id number] [address] [place] [address] Jul, Anxiety F41.9 [facility] [address] [id number] [address] [place] [address] Jun, [facility] [address] [id number] [address] [place] [address] Jun, [facility] [address] [id number] [address] [place] [address] Jun, [facility] [address] [id number] [address] [place] [address] Jun, Strain of right shoulder, scherer bsequent encounter S46.911D [facility] [address] [id number] [address] [place] [address] Jun, Strain of right shoulder, scherer bsequent encounter S46.911D [facility] [address] [id number] [address] [place] [address] Jun, Anxiety F41.9 [facility] [address] [place] [id number] Jun, Neurogenic bladder N31.9 and Anxiety F41 .9 [facility] [address] [place] [id number] May, Anxiety F41.9 [facility] [address] [id number] [address] [place] [address] May, Dysuria R30.0 [facility] [address] [id number] [address] [place] [address] May, Strain of right shoulder, shcerer bsequent encounter S46.911D and Anxiety F41.9 [place] [address] [id number] [address] [place] [address] Apr, Via [facility] [address] [place] [id number] Apr, Strain of right shoulder, subsequent enc ounter S46.911D [facility] [address] [id number] [address] [place] [address] 14 Apr, 2019 Strain of right shoulder, scherer bsequent encounter S46.911D and Anxiety F41.9 [facility] [address] [place] [id number] 13 Apr, 2019 Type 2 diabetes mellitus without complic ation, without long-term current use of insulin E11.9 and Neurogenic bladder N31.9 [facility] [address] [place] [id number] 11 Apr, 2019 Strain of right shoulder, subsequent enc ounter S46.911D ; History of GI bleed Z87.19 ; Neurogenic bladder N31.9 and Reactive depression F32.9 [facility] [address] [id number] [address] [place] [address] Apr, Acute pain of left shoulder M25.512 [facility] [address] [id number] [address] [place] [phone] Apr, [facility] [address] [id number] [address] [place] [address] Apr, Anxiety F41.9 and 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 [facility] [address] [place] [id number] March, Gastrointestinal hemorrhage associated w ith acute gastritis K29.01 [facility] [address] [id number] [address] [place] [phone] March, [facility] [address] [place] [id number] March, Bronchitis J40 [facility] [address] [id number] [address] [place] [address] March, Cough R05 [facility] [address] [id number] [address] [place] [address] March, Other chronic pain G89.29 [facility] [address] [id number] [address] [place] [address] March, Anxiety F41.9 [facility] [address] [id number] [address] [place] [id number] March, [facility] [address] [id number] [address] [place] [address] Feb, Other chronic pain G89.29 [facility] [address] [id number] [address] [place] [address] Feb, Anxiety F41.9 [facility] [address] [id number] [address] [place] [address] Feb, Other chronic pain G89.29 [facility] [address] [place] [id number] Feb, Neurogenic bladder N31.9 and Suprapubic catheter Z93.59 [facility] [place] [address] [id number] [address] [place] [address] Jan, Anxiety F41.9 [facility] [address] [id number] [address] [place] [address] Dec, Anxiety F41.9 [facility] [address] [id number] [address] [place] [address] Dec, Other chronic pain G89.29 an d Anxiety F41.9 [facility] [address] [id number] [address] [place] [address] Dec, Via [facility] [address] [place] [id number] Dec, Neurogenic bladder N31.9 and Suprapubic catheter Z93.59 [facility] [address] [id number] [address] [place] [address] Nov, Other chronic pain G89.29 an d Anxiety F41.9 [facility] [address] [id number] [address] [place] [address] Nov, Via [facility] [address] [place] [id number] Nov, Suprapubic catheter Z93.59 [facility] [address] [id number] [address] [place] [address] Oct, Other chronic pain G89.29 an d Anxiety F41.9 [facility] [address] [id number] [address] [place] [id number] Oct, [facility] [address] [id number] [address] [place] [address] Oct, Suprapubic catheter Z93.59 [facility] [address] [id number] [address] [place] [address] Oct, [facility] [address] [place] [id number] Oct, [facility] [address] [id number] [address] [place] [phone] 05 Oct, 2018 Anxiety F41.9 [facility] [address] [id number] [address] [place] [address] Oct, Anxiety F41.9 [facility] [address] [place] [id number] Oct, Other chronic pain G89.29 [facility] [address] [id number] [address] [place] [address] Sep, Other chronic pain G89.29 [email or web address] [address] [place] [id number] Sep, Suprapubic catheter Z93.59 and Cervicalg ia M54.2 [facility] [address] [id number] [address] [place] [address] Sep, [facility] [address] [id number] [address] [place] [phone] Sep, [facility] [address] [id number] [address] [place] [id number] Sep, Via [email or web address] [address] [place] [id number] Aug, Cystitis N30.90 [facility] [address] [id number] [address] [place] [address] Aug, [facility] [address] [id number] [address] [place] [address] Aug, Other chronic pain G89.29 [facility] [address] [id number] [address] [place] [address] Aug, Via [email or web address] [address] [place] [id number] Aug, Encounter for suprapubic catheter care Z 43.5 [facility] [address] [id number] [address] [place] [id number] Jul, Via [email or web address] [address] [place] [id number] Jul, [facility] [address] [id number] [address] [place] [address] Jul, Other chronic pain G89.29 [facility] [address] [id number] [address] [place] [phone] Jul, [facility] [address] [id number] [address] [place] [address] Jul, [facility] [address] [place] [id number] Jun, Postmenopausal atrophic vaginitis N95.2 [facility] [address] [id number] [address] [place] [address] Jun, Other chronic pain G89.29 [facility] [address] [id number] [address] [place] [address] Jun, Via [email or web address] [address] [place] [id number] May, Anxiety F41.9 ; Type 2 diabetes mellitus without complication, without long-term current use of insulin E11.9 ; Hypertension I10 ; Low back pain M54.5 ; Paroxysmal atrial fibrillation I48.0 and 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 [facility] [address] [id number] [address] [place] [address] May, Other chronic pain G89.29 [email or web address] [address] [place] [id number] May, Low back pain M54.5 [facility] [address] [id number] [address] [place] [address] May, [facility] [address] [id number] [address] [place] [address] Apr, Other chronic pain G89.29 [facility] [address] [id number] [address] [place] [address] Apr, [facility] [address] [id number] [address] [place] [address] Apr, Via [email or web address] [address] [place] [id number] 19 Apr, 2018 Closed compression fracture of L3 lumbar vertebra with routine healing, subsequent encounter S32.030D [email or web address] [address] [place] [id number] 14 Apr, 2018 Low back pain M54.5 [email or web address] [address] [place] [id number] 12 Apr, 2018 Coccydynia M53.3 [facility] [address] [id number] [address] [place] [address] March, [facility] [address] [id number] [address] [place] [address] March, Other chronic pain G89.29 [facility] [address] [id number] [address] [place] [address] March, [facility] [address] [id number] [address] [place] [id number] March, [facility] [address] [id number] [address] [place] [address] Feb, [facility] [address] [id number] [address] [place] [address] Feb, Other chronic pain G89.29 [email or web address] [address] [place] [id number] Feb, Other chronic pain G89.29 and Anxiety F4 1.9 [facility] [address] [id number] [address] [place] [id number] Feb, [facility] [address] [id number] [address] [place] [address] Jan, [facility] [address] [id number] [address] [place] [address] Jan, [facility] [address] [id number] [address] [place] [address] Jan, [facility] [address] [facility] [id number] [address] [place] [address] Jan, [facility] [address] [facility] [id number] [address] [place] [address] Dec, [facility] [address] [place] [id number] Dec, Peripheral vascular disease I73.9 ; 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 ; Other chronic pain G89.29 ; Anxiety F41.9 ; Reactive depression F32.9 ; Insomnia G47.00 and Type 2 diabetes mellitus without complication, without long-term current use of insulin E11.9 [facility] [address] [place] [address] [id number] [address] Nov, [facility] [address] [id number] [id number] Nov, Anxiety F41.9 [facility] [address] [facility] [id number] [address] [place] [address] Nov, [facility] [address] [id number] [place] [id number] Nov, Anxiety F41.9 [email or web address] [address] [place] [id number] Nov, Status post surgery Z98.890 ; Confused R 41.0 ; Anxiety F41.9 and Other chronic pain G89.29 [facility] [address] [id number] [place] [id number] Nov, Other chronic pain G89.29 [facility] [address] [facility] [id number] [address] [place] [address] Oct, [facility] [address] [id number] [place] [id number] Oct, Other chronic pain G89.29 [facility] [address] [facility] [id number] [address] [place] [address] Oct, Anxiety F41.9 [facility] [address] [id number] [place] [id number] Sep, Other chronic pain G89.29 [facility] [address] [id number] [place] [id number] Sep, [facility] [address] [place] [id number] Aug, Dysuria R30.0 and Anxiety F41.9 [facility] [address] [id number] [address] [place] [address] Aug, [facility] [address] [id number] [place] [id number] Aug, Other chronic pain G89.29 [facility] [address] [facility] [id number] [address] [place] [address] Jul, Other chronic pain G89.29 [facility] [address] [id number] [place] [id number] Jun, [facility] [address] [id number] [place] [id number] Jun, Other chronic pain G89.29 [facility] [address] [id number] [address] [place] [address] Jun, [facility] [address] [facility] [id number] [address] [place] [address] May, Other chronic pain G89.29 [facility] [address] [id number] [address] [place] [address] Apr, Other chronic pain G89.29 [facility] [address] [place] [id number] Apr, Reactive depression F32.9 and Pharyngeal dysphagia R13.13 [facility] [address] [id number] [address] [place] [address] Apr, Urinary tract infection with out hematuria, site unspecified N39.0 [facility] [address] [id number] [address] [place] [address] March, Other chronic pain G89.29 [facility] [address] [id number] [address] [place] [phone] Feb, Other chronic pain G89.29 [facility] [address] [id number] [address] [place] [id number] Feb, [facility] [address] [id number] [place] [id number] Feb, Via [employer] [address] [place] [id number] Feb, Dysuria R30.0 and Ventral hernia without obstruction or gangrene K43.9 [facility] [address] [id number] [address] [place] [id number] Jan, Other chronic pain G89.29 [facility] [address] [id number] [place] [id number] Dec, Other chronic pain G89.29 [facility] [address] [id number] [address] [place] [phone] Nov, Other chronic pain G89.29 Via [email or web address] [address] [place] [id number] Nov, Lymphadenitis I88.9 [facility] [address] [facility] [id number] [address] [place] [id number] Nov, Other chronic pain G89.29 [facility] [address] [id number] [address] [place] [id number] Nov, [facility] [address] [id number] [place] [id number] Nov, Other chronic pain G89.29 Via [employer] [address] [place] [id number] Oct, Low back pain M54.5 ; Hypertension I10 a nd Type 2 diabetes mellitus without complication, without long-term current use of insulin E11.9 [facility] [address] [id number] [address] [place] [phone] Oct, [facility] [address] [id number] [address] [place] [id number] Oct, [facility] [address] [id number] [address] [place] [phone] Oct, [facility] [address] [id number] [address] [place] [id number] Oct, [facility] [address] [id number] [address] [place] [phone] Sep, [facility] [address] [id number] [address] [place] [phone] Sep, [facility] [address] [id number] [address] [place] [id number] Aug, Other chronic pain G89.29 [facility] [address] [id number] [address] [place] [id number] Jul, [facility] [address] [id number] [address] [place] [id number] Jul, [facility] [address] [id number] [address] [place] [phone] Jul, [facility] [address] [address] [id number] [address] [place] [address] Jun, [facility] [address] [id number] [address] [place] [address] Jun, Via [facility] [address] [place] [id number] Jun, Low back pain M54.5 ; Other chronic pain G89.29 and Coronary artery disease I25.10 [facility] [address] [id number] [address] [place] [address] Jun, [facility] [address] [id number] [address] [place] [address] May, [facility] [address] [id number] [address] [place] [address] 15 May, 2016 [facility] [address] [id number] [address] [place] [address] May, Other chronic pain G89.29 [facility] [address] [id number] [address] [place] [address] 13 May, 2016 [facility] [address] [id number] [address] [place] [address] 28 Apr, 2016 [facility] [address] [id number] [address] [place] [address] 17 Apr, 2016 Acute cystitis without hemat uria N30.00 [facility] [address] [id number] [address] [place] [address] 16 Apr, 2016 Acute cystitis without hemat uria N30.00 ; Coronary artery disease I25.10 ; Low back pain M54.5 and Other chronic pain G89.29 [facility] [address] [id number] [address] [place] [address] 13 Apr, 2016 Other chronic pain G89.29 [facility] [address] [id number] [address] [place] [address] March, Other chronic pain G89.29 [facility] [address] [id number] [address] [place] [address] 18 Feb, 2016 [facility] [address] [id number] [address] [place] [address] 15 Feb, 2016 Arthritis M19.90 [facility] [address] [id number] [address] [place] [address] Feb, [facility] [address] [id number] [address] [place] [address] 30 Jan, 2016 [facility] [address] [id number] [address] [place] [address] Jan, [facility] [address] [id number] [address] [place] [address] Jan, Other chronic pain G89.29 [facility] [address] [id number] [address] [place] [address] Jan, Hypertension I10 ; Coronary artery disease I25.10 and Insomnia G47.00 [facility] [address] [id number] [address] [place] [address] Jan, [facility] [address] [id number] [address] [place] [address] Dec, Right hip pain M25.551 [facility] [address] [id number] [address] [place] [address] Dec, [facility] [address] [id number] [address] [place] [address] Dec, [facility] [address] [id number] [address] [place] [address] Dec, [facility] [address] [id number] [address] [place] [address] Dec, Other chronic pain G89.29 [facility] [address] [id number] [address] [place] [address] Dec, [facility] [address] [id number] [address] [place] [address] Nov, [facility] [address] [id number] [address] [place] [id number] Nov, Other chronic pain G89.29 [facility] [address] [id number] [address] [place] [address] Nov, Right hip pain M25.551 and C oronary artery disease I25.10 [facility] [address] [id number] [address] [place] [address] Nov, Other chronic pain G89.29 [facility] [address] [id number] [address] [place] [address] Oct, [facility] [address] [id number] [address] [place] [id number] Oct, [facility] [address] [id number] [address] [place] [id number] Sep, [facility] [address] [id number] [address] [place] [address] Sep, [facility] [address] [id number] [address] [place] [address] Aug, [facility] [address] [id number] [address] [place] [address] Aug, Hypertension I10 ; Coronary artery disease I25.10 and Arthritis M19.90 [facility] [address] [id number] [address] [place] [address] Jun, [facility] [address] [id number] [address] [place] [address] Jun, Essential hypertension, jayson gn 401.1 ; Other chronic pain 338.29 and Chronic airway obstruction, not elsewhere classified 496 [facility] [address] [id number] [address] [place] [address] Jun, [facility] [address] [id number] [address] [place] [address] Jun, [facility] [address] [id number] [address] [place] [address] Jun, [facility] [address] [id number] [address] [place] [address] May, [facility] [address] [id number] [address] [place] [address] May, [facility] [address] [id number] [address] [place] [address] Apr, [facility] [address] [id number] [address] [place] [address] Apr, [facility] [address] [id number] [address] [place] [address], [place] [address] Apr, [facility] [address] [id number] [address] [place] [address], [place] [address] March, [facility] [address] [id number] [address] [place] [address], [place] [address] March, [facility] [address] [id number] [address] [place] [address], [place] [address] March, [facility] [address] [id number] [address] [place] [address], [place] [address] March, [facility] [address] [id number] [address] [place] [address], [place] [address] March, Sialadenitis 527.2 [facility] [address] [id number] [address] [place] [address], [place] [address] Feb, [facility] [address] [id number] [address] [place] [address], [place] [address] Feb, [facility] [address] [id number] [address] [place] [address], [place] [address] Feb, [facility] [address] [id number] [address] [place] [address], [place] [address] Feb, [facility] [address] [id number] [address] [place] [address], [place] [address] Feb, [facility] [address] [id number] [address] [place] [address], [place] [address] Jan, [facility] [address] [id number] [address] [place] [address], [place] [address] Jan, [facility] [address] [id number] [address] [place] [address], [place] [address] Jan, [facility] [address] [id number] [address] [place] [address], [place] [address] Jan, [facility] [address] [id number] [address] [place] [address], [place] [address] Jan, [facility] [address] [id number] [address] [place] [address], [place] [address] Jan, [facility] [address] [id number] [address] [place] [address], [place] [address] Dec, 2014 [facility] [address] [id number] [address] [place] [address], [place] [address] Dec, [facility] [address] [id number] [address] [place] [address], [place] [address] Dec, 2014 [facility] [address] [id number] [address] [place] [address], [place] [address] Dec, 2014 [facility] [address] [id number] [address] [place] [address], [place] [address] Dec, [facility] [address] [id number] [address] [place] [address], [place] [address] Dec, [facility] [address] [id number] [address] [place] [address], [place] [address] Nov, [facility] [address] [id number] [address] [place] [address], [place] [address] Nov, [facility] [address] [id number] [address] [place] [address], [place] [address] Nov, [facility] [address] [id number] [address] [place] [address], [place] [address] Nov, [facility] [address] [id number] [address] [place] [address], [place] [address] Nov, [facility] [address] [id number] [address] [place] [address], [place] [address] Nov, [facility] [address] [id number] [address] [place] [address], [place] [address] Nov, [facility] [address] [id number] [address] [place] [address], [place] [address] Nov, [facility] [address] [id number] [address] [place] [address], [place] [address] Nov, [facility] [address] [id number] [address] [place] [address], [place] [address] Nov, [facility] [address] [id number] [address] [place] [address], [place] [address] Nov, [facility] [address] [id number] [address] [place] [address], [place] [address] Nov, [facility] [address] [id number] [address] [place] [address], [place] [address] Nov, [facility] [address] [id number] [address] [place] [address], [place] [address] Nov, [facility] [address] [id number] [address] [place] [address], [place] [address] Oct, [facility] [address] [id number] [address] [place] [address], [place] [address] Oct, [facility] [address] [id number] [address] [place] [address], [place] [address] Oct, [facility] [address] [id number] [address] [place] [address], [place] [address] 18 Oct, 2014 [facility] [address] [id number] [address] [place] [address], [place] [address] 18 Oct, 2014 [facility] [address] [id number] [address] [place] [address], [place] [address] 17 Oct, 2014 [facility] [address] [id number] [address] [place] [address], [place] [address] 17 Oct, 2014 [facility] [address] [id number] [address] [place] [address], [place] [address] 10 Oct, 2014 [facility] [address] [id number] [address] [place] [address], [place] [address] 10 Oct, 2014 [facility] [address] [id number] [address] [place] [address], [place] [address] Sep, [facility] [address] [id number] [address] [place] [address], [place] [address] Sep, [facility] [address] [id number] [address] [place] [address], [place] [address] Sep, [facility] [address] [id number] [address] [place] [address], [place] [address] Sep, [facility] [address] [id number] [address] [place] [address], [place] [address] Sep, [facility] [address] [id number] [address] [place] [address], [place] [address] Sep, [facility] [address] [id number] [address] [place] [address], [place] [address] Sep, [facility] [address] [id number] [address] [place] [address], [place] [address] Sep, [facility] [address] [id number] [address] [place] [address], [place] [address] Sep, [facility] [address] [id number] [address] [place] [address], [place] [address] Sep, [facility] [address] [id number] [address] [place] [address], [place] [address] Sep, [facility] [address] [id number] [address] [place] [address], [place] [address] Sep, [facility] [address] [id number] [address] [place] [address], [place] [address] Aug, [facility] [address] [id number] [address] [place] [address], [place] [address] Aug, [facility] [address] [id number] [address] [place] [address], [place] [address] Aug, [facility] [address] [id number] [address] [place] [address], [place] [address] Aug, [facility] [address] [id number] [address] [place] [address], [place] [address] 28 Aug, 2014 [facility] [address] [id number] [address] [place] [address], [place] [address] 28 Aug, 2014 [facility] [address] [id number] [address] [place] [address], [place] [address] 17 Aug, 2014 [facility] [address] [id number] [address] [place] [address], [place] [address] 17 Aug, 2013 [facility] [address] [id number] [address] [place] [address], [place] [address] 30 Jul, 2013 [facility] [address] [id number] [address] [place] [address], [place] [address] 30 Jul, 2013 [facility] [address] [id number] [address] [place] [address], [place] [address] 30 Jul, 2013 [facility] [address] [id number] [address] [place] [address], [place] [address] 30 Jul, 2013 [facility] [address] [id number] [address] [place] [address], [place] [address] 25 Jul, 2013 [facility] [address] [id number] [address] [place] [address], [place] [address] 25 Jul, 2013 [facility] [address] [id number] [address] [place] [address], [place] [address] 15 Jul, 2013 [facility] [address] [id number] [address] [place] [address], [place] [address] 15 Jul, 2013 [facility] [address] [id number] [address] [place] [address], [place] [address] 11 Jul, 2013 [facility] [address] [id number] [address] [place] [address], [place] [address] 11 Jul, 2014 [facility] [address] [id number] [address] [place] [address], [place] [address] Jun, [facility] [address] [id number] [address] [place] [address], [place] [address] Jun, [facility] [address] [id number] [address] [place] [address], [place] [address] Jun, [facility] [address] [id number] [address] [place] [address], [place] [address] Jun, [facility] [address] [id number] [address] [place] [address], [place] [address] Jun, [facility] [address] [id number] [address] [place] [address], [place] [address] Jun, [facility] [address] [id number] [address] [place] [address], [place] [address] Jun, [facility] [address] [id number] [address] [place] [address], [place] [address] Jun, [facility] [address] [id number] [address] [place] [address], [place] [address] Jun, [facility] [address] [id number] [address] [place] [address], [place] [address] Jun, [facility] [address] [id number] [address] [place] [address], [place] [address] Jun, [facility] [address] [id number] [address] [place] [address], [place] [address] Jun, [facility] [address] [id number] [address] [place] [address], [place] [address] Jun, [facility] [address] [id number] [address] [place] [address], [place] [address] Jun, [facility] [address] [id number] [address] [place] [address], [place] [address] Jun, [facility] [address] [id number] [address] [place] [address], [place] [address] Jun, [facility] [address] [id number] [address] [place] [address], [place] [address] Jun, [facility] [address] [id number] [address] [place] [address], [place] [address] Jun, [facility] [address] [id number] [facility] [address] Jun, [facility] [address] [id number] [address] [place] [address], [place] [address] Jun, [facility] [address] [id number] [address] [place] [address], [place] [address] Jun, [facility] [address] [id number] [address] [place] [address], [place] [address] Jun, [facility] [address] [id number] [address] [place] [address], [place] [address] May, [facility] [address] [id number] [address] [place] [address], [place] [address] May, [facility] [address] [id number] [address] [place] [address], [place] [address] May, [facility] [address] [id number] [address] [place] [address], [place] [address] May, [facility] [address] [id number] [address] [place] [address], [place] [address] May, [facility] [address] [id number] [address] [place] [address], [place] [address] May, [facility] [address] [id number] [address] [place] [address], [place] [address] May, [facility] [address] [id number] [address] [place] [address], [place] [address] May, [facility] [address] [id number] [address] [place] [address], [place] [address] May, [facility] [address] [id number] [address] [place] [address], [place] [address] May, [facility] [address] [id number] [address] [place] [address], [place] [address] May, [facility] [address] [id number] [facility] [address] May, [facility] [address] [id number] [facility] [address] May, [facility] [address] [id number] [address] [address] Apr, [facility] [address] [id number] [address] [address] Apr, [facility] [address] [id number] [address] [address] Apr, [facility] [address] [id number] [address] [place] [address], [place] [address] Apr, [facility] [address] [id number] [address] [place] [address], [place] [address] Apr, [facility] [address] [id number] [address] [place] [address], [place] [address] Apr, [facility] [address] [id number] [address] [place] [address], [place] [address] Apr, [facility] [address] [id number] [address] [place] [address], [place] [address] Apr, [facility] [address] [id number] [address] [place] [address], [place] [address] Apr, [facility] [address] [id number] [address] [place] [address], [place] [address] March, [facility] [address] [id number] [address] [place] [address], [place] [address] March, [facility] [address] [id number] [address] [place] [address], [place] [address] March, [facility] [address] [id number] [address] [place] [address], [place] [address] March, [facility] [address] [id number] [address] [place] [address], [place] [address] March, [facility] [address] [id number] [address] [address] March, [facility] [address] [id number] [address] [place] [address], [place] [address] March, [facility] [address] [id number] [address] [place] [address], [place] [address] March, [facility] [address] [id number] [address] [place] [address], [place] [address] March, [facility] [address] [id number] [address] [place] [address], [place] [address] March, [facility] [address] [id number] [address] [place] [address], [place] [address] March, [facility] [address] [id number] [address] [place] [address], [place] [address] March, [facility] [address] [id number] [address] [place] [address], [place] [address] March, [facility] [address] [id number] [address] [place] [address], [place] [address] March, [facility] [address] [id number] [address] [place] [address], [place] [address] March, [facility] [address] [id number] [address] [place] [address], [place] [address] March, [facility] [address] [id number] [address] [place] [address], [place] [address] March, [facility] [address] [id number] [address] [place] [address], [place] [address] March, [facility] [address] [id number] [address] [place] [address], [place] [address] March, [facility] [address] [id number] [address] [place] [address], [place] [address] March, [facility] [address] [id number] [address] [address] Feb, [facility] [address] [id number] [address] [place] [address], [place] [address] Feb, [facility] [address] [id number] [address] [address] Feb, [facility] [address] [id number] [address] [place] [address], [place] [address] Feb, [facility] [address] [id number] [address] [place] [address], [place] [address] Feb, [facility] [address] [id number] [address] [place] [address], [place] [address] Feb, [facility] [address] [id number] [address] [place] [address], [place] [address] Feb, [facility] [address] [id number] [address] [place] [address], [place] [address] Feb, [facility] [address] [id number] [address] [place] [address], [place] [address] Jan, [facility] [address] [id number] [address] [place] [address], [place] [address] Jan, [facility] [address] [id number] [address] [place] [address], [place] [address] Jan, [facility] [address] [id number] [address] [place] [address], [place] [address] 24 Jan, 2014 [facility] [address] [id number] [address] [place] [address], [place] [address] Jan, [facility] [address] [id number] [address] [place] [address], [place] [address] Jan, [facility] [address] [id number] [address] [place] [address], [place] [address] Jan, [facility] [address] [id number] [address] [place] [address], [place] [address] Jan, [facility] [address] [id number] [address] [address] Jan, [facility] [address] [id number] [address] [place] [address], [place] [address] Jan, [facility] [address] [id number] [address] [place] [address], [place] [address] Dec, [facility] [address] [id number] [address] [place] [address], [place] [id number] Dec, [facility] [address] [id number] [address] [place] [address], [place] [address] Dec, [facility] [address] [id number] [address] [place] [address], [place] [address] Dec, [facility] [address] [id number] [address] [place] [address], [place] [address] Dec, [facility] [address] [id number] [address] [place] [address], [place] [address] Dec, [facility] [address] [id number] [address] [place] [address], [place] [address] Dec, [facility] [address] [id number] [address] [place] [address], [place] [address] Dec, [facility] [address] [id number] [address] [place] [address], [place] [address] Nov, [facility] [address] [id number] [address] [place] [address], [place] [address] Nov, [facility] [address] [id number] [address] [place] [address], [place] [address] Nov, [facility] [address] [id number] [address] [place] [address], [place] [address] Nov, [facility] [address] [id number] [address] [place] [address], [place] [address] Nov, [facility] [address] [id number] [address] [place] [address], [place] [address] Nov, [facility] [place] [address] [id number] [address] [place] [address], [place] [address] Nov, [facility] [address] [id number] [address] [place] [address], [place] [address] Nov, [facility] [address] [id number] [address] [place] [address], [place] [address] Nov, [facility] [address] [id number] [address] [place] [address], [place] [address] Nov, [facility] [address] [id number] [address] [place] [address], [place] [address] Nov, [facility] [address] [id number] [address] [place] [address], [place] [address] Nov, [facility] [place] [address] [id number] [address] [place] [address], [place] [address] Nov, [facility] [address] [id number] [address] [place] [address], [place] [address] Oct, [facility] [address] [id number] [address] [place] [address], [place] [address] Oct, [facility] [address] [id number] [address] [place] [address], [place] [address] Oct, [facility] [place] [address] [id number] [address] [place] [address], [place] [address] Oct, [facility] [address] [id number] [address] [place] [address], [place] [address] Oct, [facility] [address] [id number] [address] [place] [address], [place] [address] Oct, [facility] [address] [id number] [address] [place] [address], [place] [address] Oct, [facility] [address] [id number] [address] [place] [address], [place] [address] Oct, [facility] [address] [id number] [address] [place] [address], [place] [address] Oct, [facility] [address] [id number] [address] [place] [address], [place] [address] Oct, [facility] [address] [id number] [address] [place] [address], [place] [address] Oct, [facility] [address] [id number] [address] [place] [address], [place] [address] Oct, [facility] [address] [id number] [address] [place] [address], [place] [address] Oct, [facility] [address] [id number] [address] [place] [address], [place] [address] Oct, [facility] [address] [id number] [address] [place] [address], [place] [address] Sep, [facility] [place] [address] [id number] [address] [place] [address], [place] [address] Sep, [facility] [address] [id number] [address] [place] [address], [place] [address] Sep, [facility] [address] [id number] [address] [place] [address], [place] [address] Sep, [facility] [address] [id number] [address] [place] [address], [place] [address] Sep, [facility] [address] [id number] [address] [place] [address], [place] [address] Sep, [facility] [address] [id number] [address] [place] [address], [place] [address] Sep, [facility] [address] [id number] [address] [place] [address], [place] [address] Sep, [facility] [address] [id number] [address] [place] [address], [place] [address] Sep, [facility] [address] [id number] [address] [place] [address] Sep, [facility] [address] [id number] [address] [place] [address], [place] [address] Aug, [facility] [address] [id number] [address] [place] [address] Aug, [facility] [address] [id number] [address] [place] [address] Aug, [facility] [address] [id number] [address] [place] [address] Aug, [facility] [address] [id number] [address] [place] [address], [place] [address] Aug, [facility] [address] [id number] [address] [place] [address] Aug, [facility] [address] [id number] [address] [place] [address] Aug, [facility] [address] [id number] [address] [place] [address] Aug, [facility] [address] [id number] [address] [place] [address] Aug, [facility] [address] [id number] [address] [place] [address] Aug, [facility] [address] [id number] [address] [place] [address] Aug, [facility] [address] [id number] [address] [place] [address] 18 Aug, 2013 [facility] [address] [id number] [address] [place] [address], [place] [address] 18 Aug, 2013 [facility] [address] [id number] [address] [place] [address] 18 Aug, 2013 [facility] [address] [id number] [address] [place] [address] 17 Aug, 2013 [facility] [address] [id number] [address] [place] [address], [place] [address] 14 Aug, 2013 [facility] [address] [id number] [address] [place] [address], [place] [address] 14 Aug, 2013 [facility] [address] [id number] [address] [place] [address], [place] [address] 01 Aug, 2013 [facility] [address] [id number] [address] [place] [address], [place] [address] 20 Jul, 2013 [facility] [address] [id number] [address] [place] [address], [place] [address] 19 Jul, 2013 [facility] [address] [id number] [address] [place] [address], [place] [address] 18 Jul, 2013 [facility] [address] [id number] [address] [place] [address], [place] [address] 11 Jul, 2013 [facility] [address] [id number] [address] [place] [address], [place] [address] 11 Jul, 2013 [facility] [place] [address] [id number] [address] [place] [address], [place] [address] 28 Jun, 2013 [facility] [address] [id number] [address] [place] [address], [place] [address] Jun, [facility] [address] [id number] [address] [place] [address], [place] [address] Jun, [facility] [address] [id number] [address] [place] [address], [place] [address] 15 Jun, 2013 [facility] [address] [id number] [address] [place] [address], [place] [address] 14 Jun, 2013 [facility] [address] [id number] [address] [place] [address], [place] [address] 13 Jun, 2013 [facility] [address] [id number] [address] [place] [address], [place] [address] 12 Jun, 2013 [facility] [address] [id number] [address] [place] [address], [place] [address] Jun, [facility] [address] [id number] [address] [place] [address], [place] [address] Jun, [facility] [address] [id number] [address] [place] [address], [place] [address] Jun, [facility] [address] [id number] [address] [place] [address], [place] [address] May, [facility] [address] [id number] [address] [place] [address], [place] [address] May, [facility] [address] [id number] [address] [place] [address], [place] [address] May, [facility] [address] [id number] [address] [place] [address], [place] [address] May, [facility] [address] [id number] [address] [place] [address], [place] [address] May, [facility] [address] [id number] [address] [place] [address], [place] [address] May, [facility] [address] [id number] [address] [place] [address], [place] [address] May, [facility] [address] [id number] [address] [place] [address], [place] [address] May, [facility] [address] [id number] [address] [place] [address], [place] [address] May, [facility] [address] [id number] [address] [place] [address], [place] [address] Apr, [facility] [address] [id number] [address] [place] [address], [place] [address] Apr, [facility] [address] [id number] [address] [place] [address], [place] [address] Apr, [facility] [address] [id number] [address] [place] [address], [place] [address] Apr, [facility] [address] [id number] [address] [place] [address], [place] [address] Apr, [facility] [place] [address] [id number] [address] [place] [address], [place] [address] Apr, [facility] [address] [id number] [address] [place] [address], [place] [address] Apr, [facility] [address] [id number] [address] [place] [address], [place] [address] March, [facility] [address] [id number] [address] [place] [address], [place] [address] Feb, [facility] [address] [id number] [address] [place] [address], [place] [address] Feb, [facility] [address] [id number] [address] [place] [address], [place] [address] Feb, [facility] [place] [address] [id number] [address] [place] [address], [place] [address] Jan, [facility] [place] [address] [id number] [address] [place] [address], [place] [address] Jan, [facility] [place] [address] [id number] [address] [place] [address], [place] [address] Jan, [facility] [place] [address] [id number] [address] [place] [address], [place] [address] 14 Jan, 2013 [facility] [place] [address] [id number] [address] [place] [address], [place] [address] Jan, [facility] [address] [id number] [address] [place] [address], [place] [address] 08 Jan, 2013 [facility] [address] [id number] [address] [place] [address], [place] [address] 07 Jan, 2013 [facility] [address] [id number] [address] [place] [address], [place] [address] 04 Jan, 2013 [facility] [place] [address] [id number] [address] [place] [address], [place] [address] 28 Dec, 2012 [facility] [address] [id number] [address] [place] [address], [place] [address] 25 Dec, 2012 [facility] [address] [id number] [address] [place] [address], [place] [address] 13 Dec, 2012 [facility] [address] [id number] [address] [place] [address], [place] [address] 11 Dec, 2012 [facility] [address] [id number] [address] [place] [address], [place] [address] 07 Dec, 2012 [facility] [address] [id number] [address] [place] [address], [place] [address] 06 Dec, 2012 [facility] [address] [id number] [address] [place] [address], [place] [address] 05 Dec, 2012 [facility] [address] [id number] [address] [place] [address], [place] [address] Nov, [facility] [address] [id number] [address] [place] [address], [place] [address] Nov, [facility] [address] [id number] [address] [place] [address], [place] [address] Nov, [facility] [address] [id number] [address] [place] [address], [place] [address] Nov, [facility] [address] [id number] [address] [place] [address] Nov, [facility] [address] [id number] [address] [place] [address] Nov, [facility] [address] [id number] [address] [place] [address], [place] [address] Nov, [facility] [address] [id number] [address] [place] [address], [place] [address] Oct, [facility] [address] [id number] [address] [place] [address] Oct, [facility] [address] [id number] [address] [place] [address] Oct, [facility] [address] [id number] [address] [place] [address], [place] [address] Oct, [facility] [address] [id number] [address] [place] [address], [place] [address] Oct, [facility] [address] [id number] [address] [place] [address], [place] [address] Oct, [facility] [address] [id number] [address] [place] [address], [place] [address] Oct, [facility] [address] [id number] [address] [place] [address], [place] [address] Oct, [facility] [address] [id number] [address] [place] [address], [place] [address] Oct, [facility] [address] [id number] [address] [place] [address], [place] [address] Oct, [facility] [address] [id number] [address] [place] [address], [place] [address] Oct, [facility] [address] [id number] [address] [place] [address], [place] [address] Oct, [facility] [address] [id number] [address] [place] [address], [place] [address] Sep, [facility] [address] [id number] [address] [place] [address], [place] [address] Sep, [facility] [address] [id number] [address] [place] [address], [place] [address] Sep, [facility] [address] [id number] [address] [place] [address], [place] [address] Sep, [facility] [address] [id number] [address] [place] [address], [place] [address] Sep, [facility] [address] [id number] [address] [place] [address], [place] [address] Sep, [facility] [address] [id number] [address] [place] [address], [place] [address] Sep, [facility] [address] [id number] [address] [place] [address], [place] [address] Sep, [facility] [address] [id number] [address] [place] [address], [place] [address] Sep, [facility] [address] [id number] [address] [place] [address], [place] [address] Sep, [facility] [address] [id number] [address] [place] [address], [place] [address] Sep, [facility] [address] [id number] [address] [place] [address], [place] [address] Aug, [facility] [address] [id number] [address] [place] [address], [place] [address] Aug, [facility] [address] [id number] [address] [place] [address], [place] [address] Aug, [facility] [address] [id number] [address] [place] [address], [place] [address] Aug, [facility] [address] [id number] [address] [place] [address], [place] [address] Aug, [facility] [address] [id number] [address] [place] [address], [place] [address] Aug, [facility] [address] [id number] [address] [place] [address], [place] [address] Aug, [facility] [address] [id number] [address] [place] [address], [place] [address] Aug, [facility] [address] [id number] [address] [place] [address], [place] [address] Aug, [facility] [address] [id number] [address] [place] [address], [place] [address] Aug, [facility] [address] [id number] [address] [place] [address], [place] [address] 22 Jul, 2012 [facility] [address] [id number] [facility] [address] 20 Jul, 2012 [facility] [address] [id number] [address] [place] [address], [place] [address] 10 Jul, 2012 [facility] [address] [id number] [address] [place] [address], [place] [address] 06 Jul, 2012 [facility] [address] [id number] [address] [place] [address], [place] [address] 30 Jun, 2012 [facility] [address] [id number] [address] [place] [address], [place] [address] Jun, [facility] [address] [id number] [address] [place] [address], [place] [address] Jun, [facility] [address] [id number] [address] [place] [address], [place] [address] Jun, [facility] [address] [id number] [address] [place] [address], [place] [address] Jun, [facility] [address] [id number] [address] [place] [address], [place] [address] Jun, [facility] [address] [id number] [address] [place] [address], [place] [address] Jun, [facility] [address] [id number] [address] [place] [address], [place] [address] May, [facility] [address] [id number] [address] [place] [address], [place] [address] May, [facility] [address] [id number] [address] [place] [address], [place] [address] May, [facility] [address] [id number] [address] [place] [address], [place] [address] May, [facility] [address] [id number] [address] [place] [address], [place] [address] May, [facility] [address] [id number] [address] [place] [address], [place] [address] 27 Apr, 2012 [facility] [place] [address] [id number] [address] [place] [address], [place] [address] Apr, [facility] [address] [id number] [address] [place] [address], [place] [address] Apr, [facility] [place] [address] [id number] [address] [place] [address], [place] [address] Apr, [facility] [address] [id number] [address] [place] [address], [place] [address] Apr, [facility] [address] [id number] [address] [place] [address], [place] [address] March, [facility] [place] [address] [id number] [address] [place] [address], [place] [address] March, [facility] [place] [address] [id number] [address] [place] [address], [place] [address] March, [facility] [place] [address] [id number] [address] [place] [address], [place] [address] March, [facility] [place] [address] [id number] [address] [place] [address], [place] [address] March, [facility] [address] [id number] [address] [place] [address], [place] [address] March, [facility] [place] [address] [id number] [address] [place] [address], [place] [address] March, [facility] [address] [id number] [address] [place] [address], [place] [address] March, [facility] [address] [id number] [address] [place] [address], [place] [address] March, [facility] [address] [id number] [address] [place] [address], [place] [address] March, [facility] [address] [id number] [address] [place] [address], [place] [address] Feb, [facility] [place] [address] [id number] [address] [place] [address], [place] [address] 27 Feb, 2012 [facility] [address] [id number] [address] [place] [address], [place] [address] 26 Feb, 2012 [facility] [address] [id number] [address] [place] [address], [place] [address] Feb, [facility] [address] [id number] [address] [place] [address], [place] [address] Feb, [facility] [address] [id number] [address] [place] [address], [place] [address] Feb, [facility] [address] [id number] [address] [place] [address], [place] [address] Feb, [facility] [address] [id number] [address] [place] [address], [place] [address] Feb, [facility] [address] [id number] [address] [place] [address], [place] [address] Feb, [facility] [address] [id number] [address] [place] [address], [place] [address] Jan, [facility] [address] [id number] [address] [place] [address], [place] [address] Jan, [facility] [address] [id number] [address] [place] [address], [place] [address] Jan, [facility] [address] [id number] [address] [place] [address], [place] [address] Jan, [facility] [address] [id number] [address] [place] [address], [place] [address] Dec, [facility] [address] [id number] [address] [place] [address], [place] [address] Dec, [facility] [address] [id number] [address] [place] [address], [place] [address] Nov, [facility] [address] [id number] [address] [place] [address] Nov, [facility] [address] [id number] [address] [place] [address] [id number] Nov, [facility] [address] [id number] [address] [place] [id number] Nov, [facility] [address] [id number] [address] [place] [phone] Nov, [facility] [address] [id number] [address] [place] [phone] Oct, [facility] [address] [id number] [address] [place] [id number] Oct, [facility] [address] [id number] [address] [place] [phone] Oct, [facility] [address] [id number] [address] [place] [phone] Oct, [facility] [address] [id number] [address] [place] [phone] Oct, [facility] [address] [id number] [address] [place] [phone] Oct, [facility] [address] [id number] [address] [place] [phone] Oct, [facility] [address] [id number] [address] [place] [phone] Oct, [facility] [address] [id number] [address] [place] [phone] Sep, IMMUNIZATIONS No Known Immunizations SOCIAL HISTORY Never Assessed REASON FOR VISIT PLAN OF CARE VITAL SIGNS Height 62 in 2013-06-18 Weight 173 lbs 2013-06-18 Temperature 98.1 degrees Fahrenheit 2013-06-18 Heart Rate 100 bpm 2013-06-18 Respiratory Rate 24 2013-06-18 Blood pressure systolic 158 mmHg 2013-06-18 Blood pressure diastolic 80 mmHg 2013-06-18 MEDICATIONS Unknown Medications RESULTS No Results PROCEDURES [...] History No Surgical history information Hospitalization History [facility]- Urosepsis, ab d pain and fever, discharged 11/27/2017 11/26/2017 Hospitalization History [facility]- Went Unrepsonsive, Hit head 2017 Hospitalization History [facility]- Back Pain 05/05/ 8
--- OUTSIDE RECORDS SUMMARY | 2020-06-18 15:43 | XMS REPORT ---
Author Author Sanjuanita Sanchez [facility] Address [address] [place] [address] Care Team Providers Care Direct Care Provider Name Role Phone MARIA DE JESUS Sanchez Unavailable PROBLEMS Type Condition ICD9-CM Code [id number] Code Onset Dates Condition S tatus SNOMED Code Problem Hypertension I10 Active 9873148 3 Problem Hyperlipidemia E78.5 Active 33242 004 Problem Coronary artery disease I25.10 Active 79599504 Problem Low back pain M54.5 Active 345848 009 Problem Other chronic pain G89.29 Active 8 8450481 Problem Ventral hernia without obstruction or gangrene K43 .9 Active 336944804 Problem Type 2 diabetes mellitus wit hout complication, without long-term current use of insulin E11.9 Active 908923235 Problem Anxiety F41.9 Active 67511526 Problem Peripheral vascular disease I73.9 Ac tive 406360316 Problem Insomnia G47.00 Active 548464194 Problem Microcytic anemia D50.9 Active 23 9461386 Problem Pharyngeal dysphagia R13.13 Active 08144886093246 Problem Other iron deficiency anemia D50.8 A ctive 94113375 Problem Reactive depression F32.9 Active 82447350 Problem Paroxysmal atrial fibrillation I48.0 Active 501608268 Problem Postmenopausal atrophic vaginitis N95.2 Active 66513553 Problem Encounter for suprapubic catheter care Z43.5 Active 117306373 Problem Neurogenic bladder N31.9 Active 3 [id number] ALLERGIES No Information ENCOUNTERS Encounter Location Date Diagnosis [facility] [address] [facility] [id number] [address] [place] [id number] 17 Apr, 2020 Anxiety F41.9 and Strain of right shoulder, subsequent encounter S46.911D [facility] [address] [facility] [id number] [address] [place] [id number] 04 Apr, 2020 [facility] [address] [id number] [address] [place] [phone] March, [facility] [address] [id number] [address] [place] [address] March, Anxiety F41.9 and Strain of right shoulder, subsequent encounter S46.911D [facility] [address] [id number] [address] [place] [address] Feb, Anxiety F41.9 and Strain of right shoulder, subsequent encounter S46.911D [facility] [address] [id number] [address] [place] [id number] Jan, Anxiety F41.9 and Strain of right shoulder, subsequent encounter S46.911D [facility] [address] [id number] [address] [place] [phone] Jan, [facility] [address] [place] [id number] Jan, Neurogenic bladder N31.9 [place] [address] [id number] [address] [place] [id number] Dec, [facility] [address] [id number] [address] [place] [phone] Dec, [facility] [address] [id number] [address] [place] [id number] 24 Dec, 2019 Anxiety F41.9 and Strain of right shoulder, subsequent encounter S46.911D [place] [address] [id number] [address] [place] [id number] 10 Dec, 2019 Other iron deficiency anemia D50.8 [place] [address] [id number] [address] [place] [phone] Dec, Via [facility] [address] [place] [id number] Dec, Encounter for suprapubic catheter care Z 43.5 and Microcytic anemia D50.9 [place] [address] [id number] [address] [place] [phone] Dec, [facility] [address] [id number] [address] [place] [address] Nov, Anxiety F41.9 and Strain of right shoulder, subsequent encounter S46.911D [facility] [address] [id number] [address] [place] [phone] Nov, Hypertension I10 [facility] [address] [place] [id number] Nov, Pneumonia of both lungs due to infectiou s organism, unspecified part of lung J18.9 and Suprapubic catheter Z93.59 [place] [address] [id number] [address] [place] [phone] Nov, Hypertension I10 and Reactiv e depression F32.9 [place] [address] [id number] [address] [place] [id number] Oct, Strain of right shoulder, scherer bsequent encounter S46.911D and Anxiety F41.9 [facility] [address] [id number] [address] [place] [phone] Oct, [facility] [address] [place] [id number] Oct, Suprapubic catheter Z93.59 and Candidias is, intertriginous B37.2 [facility] [address] [id number] [address] [place] [id number] Oct, Suprapubic catheter Z93.59 [facility] [address] [id number] [address] [place] [id number] Oct, Anxiety F41.9 and Strain of right shoulder, subsequent encounter S46.911D [place] [address] [id number] [address] [place] [phone] Sep, [facility] [address] [id number] [address] [place] [id number] Sep, [place] [address] [id number] [address] [place] [phone] Sep, [facility] [address] [place] [id number] Sep, Suprapubic catheter Z93.59 [facility] [address] [id number] [address] [place] [id number] Sep, Anxiety F41.9 and Strain of right shoulder, subsequent encounter S46.911D [facility] [address] [id number] [address] [place] [phone] Aug, [facility] [address] [id number] [address] [place] [id number] Aug, [facility] [address] [id number] [address] [place] [address] Aug, Anxiety F41.9 and Strain of right shoulder, subsequent encounter S46.911D [facility] [address] [place] [id number] Aug, Suprapubic catheter Z93.59 [facility] [address] [id number] [address] [place] [address] Jul, Strain of right shoulder, scherer bsequent encounter S46.911D and Anxiety F41.9 [facility] [address] [id number] [address] [place] [phone] Jul, Anxiety F41.9 [facility] [address] [id number] [address] [place] [phone] Jun, [facility] [address] [id number] [address] [place] [id number] Jun, [facility] [address] [id number] [address] [place] [id number] Jun, [facility] [address] [id number] [address] [place] [phone] Jun, Strain of right shoulder, scherer bsequent encounter S46.911D [facility] [address] [id number] [address] [place] [address] Jun, Strain of right shoulder, scherer bsequent encounter S46.911D [place] [address] [id number] [address] [place], [place] [phone] Jun, Anxiety F41.9 Via [facility] [address] [place] [id number] Jun, Neurogenic bladder N31.9 and Anxiety F41 .9 [facility] [address] [place] [id number] May, Anxiety F41.9 [place] [address] [id number] [address] [place] [address] May, Dysuria R30.0 [place] [address] [id number] [address] [place] [phone] May, Strain of right shoulder, scherer bsequent encounter S46.911D and Anxiety F41.9 [place] [address] [id number] [address] [place] [id number] Apr, Via [facility] [address] [place] [id number] Apr, Strain of right shoulder, subsequent enc ounter S46.911D [place] [address] [id number] [address] [place] [phone] 14 Apr, 2019 Strain of right shoulder, scherer bsequent encounter S46.911D and Anxiety F41.9 [facility] [address] [place] [id number] 13 Apr, 2019 Type 2 diabetes mellitus without complic ation, without long-term current use of insulin E11.9 and Neurogenic bladder N31.9 [facility] [address] [place] [id number] 11 Apr, 2019 Strain of right shoulder, subsequent enc ounter S46.911D ; History of GI bleed Z87.19 ; Neurogenic bladder N31.9 and Reactive depression F32.9 [place] [address] [id number] [address] [place] [address] Apr, Acute pain of left shoulder M25.512 [facility] [address] [id number] [address] [place] [address] Apr, [facility] [address] [id number] [address] [place] [phone] Apr, Anxiety F41.9 and 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 [facility] [address] [place] [id number] March, Gastrointestinal hemorrhage associated w ith acute gastritis K29.01 [facility] [address] [id number] [address] [place] [id number] March, [facility] [address] [place] [id number] March, Bronchitis J40 [facility] [address] [id number] [address] [place] [id number] March, Cough R05 [facility] [address] [id number] [address] [place] [phone] March, Other chronic pain G89.29 [facility] [address] [id number] [address] [place] [id number] March, Anxiety F41.9 [facility] [address] [id number] [address] [place] [phone] March, [facility] [address] [id number] [address] [place] [id number] Feb, Other chronic pain G89.29 [facility] [address] [id number] [address] [place] [address] Feb, Anxiety F41.9 [facility] [address] [id number] [address] [place] [phone] Feb, Other chronic pain G89.29 [facility] [address] [place] [id number] Feb, Neurogenic bladder N31.9 and Suprapubic catheter Z93.59 [place] [address] [id number] [address] [place] [phone] Jan, Anxiety F41.9 [facility] [address] [id number] [address] [place] [address] Dec, Anxiety F41.9 [facility] [address] [id number] [address] [place] [id number] Dec, Other chronic pain G89.29 an d Anxiety F41.9 [facility] [address] [id number] [address] [place] [phone] Dec, Via [facility] [address] [place] [id number] Dec, Neurogenic bladder N31.9 and Suprapubic catheter Z93.59 [facility] [address] [id number] [address] [place] [id number] Nov, Other chronic pain G89.29 an d Anxiety F41.9 [facility] [address] [id number] [address] [place] [address] Nov, Via [facility] [address] [place] [id number] Nov, Suprapubic catheter Z93.59 [facility] [address] [id number] [address] [place] [address] Oct, Other chronic pain G89.29 an d Anxiety F41.9 [facility] [address] [id number] [address] [place] [phone] Oct, [facility] [address] [id number] [address] [place] [id number] Oct, Suprapubic catheter Z93.59 [facility] [address] [id number] [address] [place] [id number] Oct, [facility] [address] [place] [id number] Oct, [facility] [address] [id number] [address] [place] [phone] 05 Oct, 2018 Anxiety F41.9 [facility] [address] [id number] [address] [place] [phone] Oct, Anxiety F41.9 [facility] [address] [place] [id number] Oct, Other chronic pain G89.29 [facility] [address] [id number] [address] [place] [id number] Sep, Other chronic pain G89.29 [facility] [address] [place] [id number] Sep, Suprapubic catheter Z93.59 and Cervicalg ia M54.2 [facility] [address] [id number] [address] [place] [phone] Sep, [facility] [address] [id number] [address] [place] [id number] Sep, [facility] [address] [id number] [address] [place] [id number] Sep, Via [facility] [address] [place] [id number] Aug, Cystitis N30.90 [facility] [address] [id number] [address] [place] [id number] Aug, [facility] [address] [id number] [address] [place] [phone] Aug, Other chronic pain G89.29 [facility] [address] [id number] [address] [place] [phone] Aug, Via [facility] [address] [place] [id number] Aug, Encounter for suprapubic catheter care Z 43.5 [facility] [address] [id number] [address] [place] [phone] Jul, Via [facility] [address] [place] [id number] Jul, [facility] [address] [id number] [address] [place] [address] Jul, Other chronic pain G89.29 [facility] [address] [id number] [address] [place] [phone] Jul, [facility] [address] [id number] [address] [place] [phone] Jul, [facility] [address] [place] [id number] Jun, Postmenopausal atrophic vaginitis N95.2 [facility] [address] [id number] [address] [place] [address] Jun, Other chronic pain G89.29 [facility] [address] [id number] [address] [place] [phone] Jun, Via [facility] [address] [place] [id number] May, Anxiety F41.9 ; Type 2 diabetes mellitus without complication, without long-term current use of insulin E11.9 ; Hypertension I10 ; Low back pain M54.5 ; Paroxysmal atrial fibrillation I48.0 and 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 [facility] [address] [id number] [address] [place] [address] May, Other chronic pain G89.29 [facility] [address] [place] [id number] May, Low back pain M54.5 [facility] [address] [id number] [address] [place] [id number] May, [facility] [address] [id number] [address] [place] [address] Apr, Other chronic pain G89.29 [facility] [address] [id number] [address] [place] [phone] Apr, [facility] [address] [id number] [address] [place] [phone] Apr, [facility] [address] [place] [id number] 19 Apr, 2018 Closed compression fracture of L3 lumbar vertebra with routine healing, subsequent encounter S32.030D [facility] [address] [place] [id number] 14 Apr, 2018 Low back pain M54.5 [facility] [address] [place] [id number] 12 Apr, 2018 Coccydynia M53.3 [facility] [address] [id number] [address] [place] [id number] March, [facility] [address] [id number] [address] [place] [phone] March, Other chronic pain G89.29 [facility] [address] [id number] [address] [place] [phone] March, [facility] [address] [id number] [address] [place] [address] March, [facility] [address] [id number] [address] [place] [phone] Feb, [facility] [address] [id number] [address] [place] [address] Feb, Other chronic pain G89.29 [facility] [address] [place] [id number] Feb, Other chronic pain G89.29 and Anxiety F4 1.9 [facility] [address] [id number] [address] [place] [phone] Feb, [facility] [address] [id number] [address] [place] [phone] Jan, [facility] [address] [id number] [address] [place] [address] Jan, [facility] [address] [id number] [address] [place] [phone] Jan, [facility] [address] [facility] [id number] [address] [place] [address] Jan, [facility] [address] 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 [id number] [address] [place] [phone] Nov, [facility] [address] [id number] [id number] Nov, Anxiety F41.9 [facility] [address] [place] [id number] Nov, Status post surgery Z98.890 ; Confused R 41.0 ; Anxiety F41.9 and Other chronic pain G89.29 [facility] [address] [id number] [id number] Nov, Other chronic pain G89.29 [facility] [address] [facility] [id number] [address] [place] [address] Oct, [place] [address] [id number] [id number] Oct, Other chronic pain G89.29 [facility] [address] [facility] [id number] [address] [place] [address] Oct, Anxiety F41.9 [place] [address] [id number] [place] [id number] Sep, Other chronic pain G89.29 [facility] [address] [id number] [place] [id number] Sep, [facility] [address] [place] [id number] Aug, Dysuria R30.0 and Anxiety F41.9 [facility] [address] [id number] [address] [place] [address] Aug, [facility] [address] [id number] [place] [id number] Aug, Other chronic pain G89.29 [facility] [address] [facility] [id number] [address] [place] [address] Jul, Other chronic pain G89.29 [facility] [address] [id number] [place] [id number] Jun, [facility] [address] [id number] [place] [id number] Jun, Other chronic pain G89.29 [facility] [address] [id number] [address] [place] [address] Jun, [facility] [address] [facility] [id number] [address] [place] [address] May, Other chronic pain G89.29 [facility] [address] [id number] [address] [place] [address] Apr, Other chronic pain G89.29 [facility] [address] [place] [id number] Apr, Reactive depression F32.9 and Pharyngeal dysphagia R13.13 [facility] [address] [id number] [address] [place] [address] Apr, Urinary tract infection with out hematuria, site unspecified N39.0 [facility] [address] [id number] [address] [place] [address] March, Other chronic pain G89.29 [facility] [address] [id number] [address] [place] [address] Feb, Other chronic pain G89.29 [facility] [address] [id number] [address] [place] [address] Feb, [facility] [address] [id number] [place] [id number] Feb, [facility] [address] [place] [id number] Feb, Dysuria R30.0 and Ventral hernia without obstruction or gangrene K43.9 [facility] [address] [id number] [address] [place] [address] Jan, Other chronic pain G89.29 [facility] [address] [id number] [place] [id number] Dec, Other chronic pain G89.29 [facility] [address] [id number] [address] [place] [address] Nov, Other chronic pain G89.29 [facility] [address] [place] [id number] Nov, Lymphadenitis I88.9 [facility] [address] [facility] [id number] [address] [place] [address] Nov, Other chronic pain G89.29 [facility] [address] [id number] [address] [place] [address] Nov, [facility] [address] [id number] [place] [id number] Nov, Other chronic pain G89.29 [facility] [address] [place] [id number] Oct, Low back pain M54.5 ; Hypertension I10 a nd Type 2 diabetes mellitus without complication, without long-term current use of insulin E11.9 [facility] [address] [id number] [address] [place] [phone] Oct, [facility] [address] [id number] [address] [place] [phone] Oct, [facility] [address] [id number] [address] [place] [phone] Oct, [facility] [address] [id number] [address] [place] [phone] Oct, [facility] [address] [id number] [address] [place] [id number] Sep, [facility] [address] [id number] [address] [place] [address] Sep, [facility] [address] [id number] [address] [place] [id number] Aug, Other chronic pain G89.29 [facility] [address] [id number] [address] [place] [phone] Jul, [facility] [address] [id number] [address] [place] [id number] Jul, [facility] [address] [id number] [address] [place] [id number] Jul, [facility] [address] [id number] [address] [place] [id number] Jun, [facility] [address] [id number] [address] [place] [phone] Jun, [facility] [address] [place] [id number] Jun, Low back pain M54.5 ; Other chronic pain G89.29 and Coronary artery disease I25.10 [facility] [address] [id number] [address] [place] [id number] Jun, [facility] [address] [id number] [address] [place] [phone] May, [facility] [address] [id number] [address] [place] [phone] 15 May, 2016 [facility] [address] [id number] [address] [place] [id number] May, Other chronic pain G89.29 [facility] [address] [id number] [address] [place] [id number] 13 May, 2016 [facility] [address] [id number] [address] [place] [id number] 28 Apr, 2016 [facility] [address] [id number] [address] [place] [id number] 17 Apr, 2016 Acute cystitis without hemat uria N30.00 [facility] [address] [id number] [address] [place] [id number] 16 Apr, 2016 Acute cystitis without hemat uria N30.00 ; Coronary artery disease I25.10 ; Low back pain M54.5 and Other chronic pain G89.29 [facility] [address] [id number] [address] [place] [id number] 13 Apr, 2016 Other chronic pain G89.29 [facility] [address] [id number] [address] [place] [id number] March, Other chronic pain G89.29 [facility] [address] [id number] [address] [place] [phone] 18 Feb, 2016 [facility] [address] [id number] [address] [place] [id number] 15 Feb, 2016 Arthritis M19.90 [facility] [address] [id number] [address] [place] [phone] Feb, [facility] [address] [id number] [address] [place] [id number] 30 Jan, 2016 [facility] [address] [id number] [address] [place] [phone] Jan, [facility] [address] [id number] [address] [place] [address] Jan, Other chronic pain G89.29 [facility] [address] [id number] [address] [place] [address] Jan, Hypertension I10 ; Coronary artery disease I25.10 and Insomnia G47.00 [facility] [address] [id number] [address] [place] [address] Jan, [facility] [address] [id number] [address] [place] [address] Dec, Right hip pain M25.551 [facility] [address] [id number] [address] [place] [address] Dec, [facility] [address] [id number] [address] [place] [id number] Dec, [facility] [address] [id number] [address] [place] [address] Dec, [facility] [address] [id number] [address] [place] [address] Dec, Other chronic pain G89.29 [facility] [address] [id number] [address] [place] [address] Dec, [facility] [address] [id number] [address] [place] [address] Nov, [facility] [address] [id number] [address] [place] [address] Nov, Other chronic pain G89.29 [facility] [address] [id number] [address] [place] [address] Nov, Right hip pain M25.551 and C oronary artery disease I25.10 [facility] [address] [id number] [address] [place] [address] Nov, Other chronic pain G89.29 [facility] [address] [id number] [address] [place] [address] Oct, [facility] [address] [id number] [address] [place] [address] Oct, [facility] [address] [id number] [address] [place] [address] Sep, [facility] [address] [id number] [address] [place] [address] Sep, [facility] [address] [id number] [address] [place] [address] Aug, [facility] [address] [id number] [address] [place] [address] Aug, Hypertension I10 ; Coronary artery disease I25.10 and Arthritis M19.90 [facility] [address] [id number] [address] [place] [id number] Jun, [facility] [address] [id number] [address] [place] [address] Jun, Essential hypertension, jayson gn 401.1 ; Other chronic pain 338.29 and Chronic airway obstruction, not elsewhere classified 496 [facility] [address] [id number] [address] [place] [id number] Jun, [facility] [address] [id number] [address] [place] [address] Jun, [facility] [address] [id number] [address] [place] [address] Jun, [facility] [address] [id number] [address] [place] [address] May, [facility] [address] [id number] [address] [place] [address] May, [facility] [address] [id number] [address] [place] [address] Apr, [facility] [address] [id number] [address] [place] [address] Apr, [facility] [address] [id number] [address] [place] [address], [place] [address] Apr, [facility] [address] [id number] [address] [place] [address], [place] [address] March, [facility] [address] [id number] [address] [place] [address], [place] [address] March, [facility] [address] [id number] [address] [place] [address], [place] [address] March, [facility] [address] [id number] [address] [place] [address], [place] [address] March, [facility] [address] [id number] [address] [place] [address], [place] [address] March, Sialadenitis 527.2 [facility] [address] [id number] [address] [place] [address], [place] [address] Feb, [facility] [address] [id number] [address] [place] [address], [place] [address] Feb, [facility] [address] [id number] [address] [place] [address], [place] [address] Feb, [facility] [address] [id number] [address] [place] [address], [place] [address] Feb, [facility] [address] [id number] [address] [place] [address], [place] [address] Feb, [facility] [address] [id number] [address] [place] [address], [place] [address] Jan, [facility] [address] [id number] [address] [place] [address], [place] [address] Jan, [facility] [address] [id number] [address] [place] [address], [place] [address] Jan, [facility] [address] [id number] [address] [place] [address], [place] [address] Jan, [facility] [address] [id number] [address] [place] [address], [place] [address] Jan, [facility] [address] [id number] [address] [place] [address], [place] [address] Jan, [facility] [address] [id number] [address] [place] [address], [place] [address] Dec, 2014 [facility] [address] [id number] [address] [place] [address], [place] [address] Dec, [facility] [address] [id number] [address] [place] [address], [place] [address] Dec, 2014 [facility] [address] [id number] [address] [place] [address], [place] [address] Dec, 2014 [facility] [address] [id number] [address] [place] [address], [place] [address] Dec, [facility] [address] [id number] [address] [place] [address], [place] [address] Dec, [facility] [address] [id number] [address] [place] [address], [place] [address] Nov, [facility] [address] [id number] [address] [place] [address], [place] [address] Nov, [facility] [address] [id number] [address] [place] [address], [place] [address] Nov, [facility] [address] [id number] [address] [place] [address], [place] [address] Nov, [facility] [address] [id number] [address] [place] [address], [place] [address] Nov, [facility] [address] [id number] [address] [place] [address], [place] [address] Nov, [facility] [address] [id number] [address] [place] [address], [place] [address] Nov, [facility] [address] [id number] [address] [place] [address], [place] [address] Nov, [facility] [address] [id number] [address] [place] [address], [place] [address] Nov, [facility] [address] [id number] [address] [place] [address], [place] [address] Nov, [facility] [address] [id number] [address] [place] [address], [place] [address] Nov, [facility] [address] [id number] [address] [place] [address], [place] [address] Nov, [facility] [address] [id number] [address] [place] [address], [place] [address] Nov, [facility] [address] [id number] [address] [place] [address], [place] [address] Nov, [facility] [address] [id number] [address] [place] [address], [place] [address] Oct, [facility] [address] [id number] [address] [place] [address], [place] [address] Oct, [facility] [address] [id number] [address] [place] [address], [place] [address] Oct, [facility] [address] [id number] [address] [place] [address], [place] [address] 18 Oct, 2014 [facility] [address] [id number] [address] [place] [address], [place] [address] 18 Oct, 2014 [facility] [address] [id number] [address] [place] [address], [place] [address] 17 Oct, 2014 [facility] [address] [id number] [address] [place] [address], [place] [address] 17 Oct, 2014 [facility] [address] [id number] [address] [place] [address], [place] [address] 10 Oct, 2014 [facility] [address] [id number] [address] [place] [address], [place] [address] 10 Oct, 2014 [facility] [address] [id number] [address] [place] [address], [place] [address] Sep, [facility] [address] [id number] [address] [place] [address], [place] [address] Sep, [facility] [address] [id number] [address] [place] [address], [place] [address] Sep, [facility] [address] [id number] [address] [place] [address], [place] [address] Sep, [facility] [address] [id number] [address] [place] [address], [place] [address] Sep, [facility] [address] [id number] [address] [place] [address], [place] [address] Sep, [facility] [address] [id number] [address] [place] [address], [place] [address] Sep, [facility] [address] [id number] [address] [place] [address], [place] [address] Sep, [facility] [address] [id number] [address] [place] [address], [place] [address] Sep, [facility] [address] [id number] [address] [place] [address], [place] [address] Sep, [facility] [address] [id number] [address] [place] [address], [place] [address] Sep, [facility] [address] [id number] [address] [place] [address], [place] [address] Sep, [facility] [address] [id number] [address] [place] [address], [place] [address] Aug, [facility] [address] [id number] [address] [place] [address], [place] [address] Aug, [facility] [address] [id number] [address] [place] [address], [place] [address] Aug, [facility] [address] [id number] [address] [place] [address], [place] [address] Aug, [facility] [address] [id number] [address] [place] [address], [place] [address] 28 Aug, 2014 [facility] [address] [id number] [address] [place] [address], [place] [address] 28 Aug, 2014 [facility] [address] [id number] [address] [place] [address], [place] [address] 17 Aug, 2014 [facility] [address] [id number] [address] [place] [address], [place] [address] 17 Aug, 2013 [facility] [address] [id number] [address] [place] [address], [place] [address] 30 Jul, 2013 [facility] [address] [id number] [address] [place] [address], [place] [address] 30 Jul, 2013 [facility] [address] [id number] [address] [place] [address], [place] [address] 30 Jul, 2013 [facility] [address] [id number] [address] [place] [address], [place] [address] 30 Jul, 2013 [facility] [address] [id number] [address] [place] [address], [place] [address] 25 Jul, 2013 [facility] [address] [id number] [address] [place] [address], [place] [address] 25 Jul, 2013 [facility] [address] [id number] [address] [place] [address], [place] [address] 15 Jul, 2013 [facility] [address] [id number] [address] [place] [address], [place] [address] 15 Jul, 2013 [facility] [address] [id number] [address] [place] [address], [place] [address] 11 Jul, 2013 [facility] [address] [id number] [address] [place] [address], [place] [address] 11 Jul, 2014 [facility] [address] [id number] [address] [place] [address], [place] [address] Jun, [facility] [address] [id number] [address] [place] [address], [place] [address] Jun, [facility] [address] [id number] [address] [place] [address], [place] [address] Jun, [facility] [address] [id number] [address] [place] [address], [place] [address] Jun, [facility] [address] [id number] [address] [place] [address], [place] [address] Jun, [facility] [address] [id number] [address] [place] [address], [place] [address] Jun, [facility] [address] [id number] [address] [place] [address], [place] [address] Jun, [facility] [address] [id number] [address] [place] [address], [place] [address] Jun, [facility] [address] [id number] [address] [place] [address], [place] [address] Jun, [facility] [address] [id number] [address] [place] [address], [place] [address] Jun, [facility] [address] [id number] [address] [place] [address], [place] [address] Jun, [facility] [address] [id number] [address] [place] [address], [place] [address] Jun, [facility] [address] [id number] [address] [place] [address], [place] [address] Jun, [facility] [address] [id number] [address] [place] [address], [place] [address] Jun, [facility] [address] [id number] [address] [place] [address], [place] [address] Jun, [facility] [address] [id number] [address] [place] [address], [place] [address] Jun, [facility] [address] [id number] [address] [place] [address], [place] [address] Jun, [facility] [address] [id number] [address] [place] [address], [place] [address] Jun, [facility] [address] [id number] [facility] [place] [address] Jun, [facility] [address] [id number] [address] [place] [address], [place] [address] Jun, [facility] [address] [id number] [address] [place] [address], [place] [address] Jun, [facility] [address] [id number] [address] [place] [address], [place] [address] Jun, [facility] [address] [id number] [address] [place] [address], [place] [address] May, [facility] [address] [id number] [address] [place] [address], [place] [address] May, [facility] [address] [id number] [address] [place] [address], [place] [address] May, [facility] [address] [id number] [address] [place] [address], [place] [address] May, [facility] [address] [id number] [address] [place] [address], [place] [address] May, [facility] [address] [id number] [address] [place] [address], [place] [address] May, [facility] [address] [id number] [address] [place] [address], [place] [address] May, [facility] [address] [id number] [address] [place] [address], [place] [address] May, [facility] [address] [id number] [address] [place] [address], [place] [address] May, [facility] [address] [id number] [address] [place] [address], [place] [address] May, [facility] [address] [id number] [address] [place] [address], [place] [address] May, [facility] [address] [id number] [facility] [place] [address] May, [facility] [address] [id number] [facility] [place] [address] May, [facility] [address] [id number] [facility] [place] [address] Apr, [facility] [address] [id number] [facility] [place] [address] Apr, [facility] [address] [id number] [facility] [place] [address] Apr, [facility] [address] [id number] [address] [place] [address], [place] [address] Apr, [facility] [address] [id number] [address] [place] [address], [place] [address] Apr, [facility] [address] [id number] [address] [place] [address], [place] [address] Apr, [facility] [address] [id number] [address] [place] [address], [place] [address] Apr, [facility] [address] [id number] [address] [place] [address], [place] [address] Apr, [facility] [address] [id number] [address] [place] [address], [place] [address] Apr, [facility] [address] [id number] [address] [place] [address], [place] [address] March, [facility] [address] [id number] [address] [place] [address], [place] [address] March, [facility] [address] [id number] [address] [place] [address], [place] [address] March, [facility] [address] [id number] [address] [place] [address], [place] [address] March, [facility] [address] [id number] [address] [place] [address], [place] [address] March, [facility] [address] [id number] [facility] [place] [address] March, [facility] [address] [id number] [address] [place] [address], [place] [address] March, [facility] [address] [id number] [address] [place] [address], [place] [address] March, [facility] [address] [id number] [address] [place] [address], [place] [address] March, [facility] [address] [id number] [address] [place] [address], [place] [address] March, [facility] [address] [id number] [address] [place] [address], [place] [address] March, [facility] [address] [id number] [address] [place] [address], [place] [address] March, [facility] [address] [id number] [address] [place] [address], [place] [address] March, [facility] [address] [id number] [address] [place] [address], [place] [address] March, [facility] [address] [id number] [address] [place] [address], [place] [address] March, [facility] [address] [id number] [address] [place] [address], [place] [address] March, [facility] [address] [id number] [address] [place] [address], [place] [address] March, [facility] [address] [id number] [address] [place] [address], [place] [address] March, [facility] [address] [id number] [address] [place] [address], [place] [address] March, [facility] [address] [id number] [address] [place] [address], [place] [address] March, [facility] [address] [id number] [facility] [place] [address] Feb, [facility] [address] [id number] [address] [place] [address], [place] [address] Feb, [facility] [address] [id number] [facility] [place] [address] Feb, [facility] [address] [id number] [address] [place] [address], [place] [address] Feb, [facility] [address] [id number] [address] [place] [address], [place] [address] Feb, [facility] [address] [id number] [address] [place] [address], [place] [address] Feb, [facility] [address] [id number] [address] [place] [address], [place] [address] Feb, [facility] [address] [id number] [address] [place] [address], [place] [address] Feb, [facility] [address] [id number] [address] [place] [address], [place] [address] Jan, [facility] [address] [id number] [address] [place] [address], [place] [address] Jan, [facility] [address] [id number] [address] [place] [address], [place] [address] Jan, [facility] [address] [id number] [address] [place] [address], [place] [address] 24 Jan, 2014 [facility] [address] [id number] [address] [place] [address], [place] [address] Jan, [facility] [address] [id number] [address] [place] [address], [place] [address] Jan, [facility] [address] [id number] [address] [place] [address], [place] [address] Jan, [facility] [address] [id number] [address] [place] [address], [place] [address] Jan, [facility] [address] [id number] [facility] [place] [address] Jan, [facility] [address] [id number] [address] [place] [address], [place] [address] Jan, [facility] [address] [id number] [address] [place] [address], [place] [address] Dec, [facility] [address] [id number] [address] [place] [address], [place] [address] Dec, [facility] [address] [id number] [address] [place] [address], [place] [address] Dec, [facility] [address] [id number] [address] [place] [address], [place] [address] Dec, [facility] [address] [id number] [address] [place] [address], [place] [address] Dec, [facility] [address] [id number] [address] [place] [address], [place] [address] Dec, [facility] [address] [id number] [address] [place] [address], [place] [address] Dec, [facility] [address] [id number] [address] [place] [address], [place] [address] Dec, [facility] [address] [id number] [address] [place] [address], [place] [address] Nov, [facility] [address] [id number] [address] [place] [address], [place] [address] Nov, [facility] [address] [id number] [address] [place] [address], [place] [address] Nov, [facility] [address] [id number] [address] [place] [address], [place] [address] Nov, [facility] [address] [id number] [address] [place] [address], [place] [address] Nov, [facility] [address] [id number] [address] [place] [address], [place] [address] Nov, [facility] [place] [address] [id number] [address] [place] [address], [place] [address] Nov, [facility] [address] [id number] [address] [place] [address], [place] [address] Nov, [facility] [address] [id number] [address] [place] [address], [place] [address] Nov, [facility] [address] [id number] [address] [place] [address], [place] [address] Nov, [facility] [address] [id number] [address] [place] [address], [place] [address] Nov, [facility] [address] [id number] [address] [place] [address], [place] [address] Nov, [facility] [place] [address] [id number] [address] [place] [address], [place] [address] Nov, [facility] [address] [id number] [address] [place] [address], [place] [address] Oct, [facility] [address] [id number] [address] [place] [address], [place] [address] Oct, [facility] [address] [id number] [address] [place] [address], [place] [address] Oct, [facility] [place] [address] [id number] [address] [place] [address], [place] [address] Oct, [facility] [address] [id number] [address] [place] [address], [place] [address] Oct, [facility] [address] [id number] [address] [place] [address], [place] [address] Oct, [facility] [address] [id number] [address] [place] [address], [place] [address] Oct, [facility] [address] [id number] [address] [place] [address], [place] [address] Oct, [facility] [address] [id number] [address] [place] [address], [place] [address] Oct, [facility] [address] [id number] [address] [place] [address], [place] [address] Oct, [facility] [address] [id number] [address] [place] [address], [place] [address] Oct, [facility] [address] [id number] [address] [place] [address], [place] [address] Oct, [facility] [address] [id number] [address] [place] [address], [place] [address] Oct, [facility] [address] [id number] [address] [place] [address], [place] [address] Oct, [facility] [address] [id number] [address] [place] [address], [place] [address] Sep, [facility] [place] [address] [id number] [address] [place] [address], [place] [address] Sep, [facility] [address] [id number] [address] [place] [address], [place] [address] Sep, [facility] [address] [id number] [address] [place] [address], [place] [address] Sep, [facility] [address] [id number] [address] [place] [address], [place] [address] Sep, [facility] [address] [id number] [address] [place] [address], [place] [address] Sep, [facility] [address] [id number] [address] [place] [address], [place] [address] Sep, [facility] [address] [id number] [address] [place] [address], [place] [address] Sep, [facility] [address] [id number] [address] [place] [address], [place] [address] Sep, [facility] [address] [id number] [address] [place] [phone] Sep, [facility] [address] [id number] [address] [place] [address], [place] [address] Aug, [facility] [address] [id number] [address] [place] [phone] Aug, [facility] [address] [id number] [address] [place] [phone] Aug, [facility] [address] [id number] [address] [place] [address] Aug, [facility] [address] [id number] [address] [place] [address], [place] [address] Aug, [facility] [address] [id number] [address] [place] [address] Aug, [facility] [address] [id number] [address] [place] [address] Aug, [facility] [address] [id number] [address] [place] [address] Aug, [facility] [address] [id number] [address] [place] [address] Aug, [facility] [address] [id number] [address] [place] [address] Aug, [facility] [address] [id number] [address] [place] [address] Aug, [facility] [address] [id number] [address] [place] [address] 18 Aug, 2013 [facility] [address] [id number] [address] [place] [address], [place] [address] 18 Aug, 2013 [facility] [address] [id number] [address] [place] [address] 18 Aug, 2013 [facility] [address] [id number] [address] [place] [address] 17 Aug, 2013 [facility] [address] [id number] [address] [place] [address], [place] [address] 14 Aug, 2013 [facility] [address] [id number] [address] [place] [address], [place] [address] 14 Aug, 2013 [facility] [address] [id number] [address] [place] [address], [place] [address] 01 Aug, 2013 [facility] [address] [id number] [address] [place] [address], [place] [address] 20 Jul, 2013 [facility] [address] [id number] [address] [place] [address], [place] [address] 19 Jul, 2013 [facility] [address] [id number] [address] [place] [address], [place] [address] 18 Jul, 2013 [facility] [address] [id number] [address] [place] [address], [place] [address] 11 Jul, 2013 [facility] [address] [id number] [address] [place] [address], [place] [address] 11 Jul, 2013 [facility] [place] [address] [id number] [address] [place] [address], [place] [address] 28 Jun, 2013 [facility] [address] [id number] [address] [place] [address], [place] [address] Jun, [facility] [address] [id number] [address] [place] [address], [place] [address] Jun, [facility] [address] [id number] [address] [place] [address], [place] [address] 15 Jun, 2013 [facility] [address] [id number] [address] [place] [address], [place] [address] 14 Jun, 2013 [facility] [address] [id number] [address] [place] [address], [place] [address] 13 Jun, 2013 [facility] [address] [id number] [address] [place] [address], [place] [address] 12 Jun, 2013 [facility] [address] [id number] [address] [place] [address], [place] [address] Jun, [facility] [address] [id number] [address] [place] [address], [place] [address] Jun, [facility] [address] [id number] [address] [place] [address], [place] [address] Jun, [facility] [address] [id number] [address] [place] [address], [place] [address] May, [facility] [address] [id number] [address] [place] [address], [place] [address] May, [facility] [address] [id number] [address] [place] [address], [place] [address] May, [facility] [address] [id number] [address] [place] [address], [place] [address] May, [facility] [address] [id number] [address] [place] [address], [place] [address] May, [facility] [address] [id number] [address] [place] [address], [place] [address] May, [facility] [address] [id number] [address] [place] [address], [place] [address] May, [facility] [address] [id number] [address] [place] [address], [place] [address] May, [facility] [address] [id number] [address] [place] [address], [place] [address] May, [facility] [address] [id number] [address] [place] [address], [place] [address] Apr, [facility] [address] [id number] [address] [place] [address], [place] [address] Apr, [facility] [address] [id number] [address] [place] [address], [place] [address] Apr, [facility] [address] [id number] [address] [place] [address], [place] [address] Apr, [facility] [address] [id number] [address] [place] [address], [place] [address] Apr, [facility] [place] [address] [id number] [address] [place] [address], [place] [address] Apr, [facility] [address] [id number] [address] [place] [address], [place] [address] Apr, [facility] [address] [id number] [address] [place] [address], [place] [address] March, [facility] [address] [id number] [address] [place] [address], [place] [address] Feb, [facility] [address] [id number] [address] [place] [address], [place] [address] Feb, [facility] [address] [id number] [address] [place] [address], [place] [address] Feb, [facility] [place] [address] [id number] [address] [place] [address], [place] [address] Jan, [facility] [place] [address] [id number] [address] [place] [address], [place] [address] Jan, [facility] [place] [address] [id number] [address] [place] [address], [place] [address] Jan, [facility] [place] [address] [id number] [address] [place] [address], [place] [address] 14 Jan, 2013 [facility] [place] [address] [id number] [address] [place] [address], [place] [address] Jan, [facility] [address] [id number] [address] [place] [address], [place] [address] 08 Jan, 2013 [facility] [address] [id number] [address] [place] [address], [place] [address] 07 Jan, 2013 [facility] [address] [id number] [address] [place] [address], [place] [address] 04 Jan, 2013 [facility] [place] [address] [id number] [address] [place] [address], [place] [address] 28 Dec, 2012 [facility] [address] [id number] [address] [place] [address], [place] [address] 25 Dec, 2012 [facility] [address] [id number] [address] [place] [address], [place] [address] 13 Dec, 2012 [facility] [address] [id number] [address] [place] [address], [place] [address] 11 Dec, 2012 [facility] [address] [id number] [address] [place] [address], [place] [address] 07 Dec, 2012 [facility] [address] [id number] [address] [place] [address], [place] [address] 06 Dec, 2012 [facility] [address] [id number] [address] [place] [address], [place] [address] 05 Dec, 2012 [facility] [address] [id number] [address] [place] [address], [place] [address] Nov, [facility] [address] [id number] [address] [place] [address], [place] [address] Nov, [facility] [address] [id number] [address] [place] [address], [place] [address] Nov, [facility] [address] [id number] [address] [place] [address], [place] [address] Nov, [facility] [address] [id number] [address] [place] [address] Nov, [facility] [address] [id number] [address] [place] [address] Nov, [facility] [address] [id number] [address] [place] [address], [place] [address] Nov, [facility] [address] [id number] [address] [place] [address], [place] [address] Oct, [facility] [address] [id number] [address] [place] [address] Oct, [facility] [address] [id number] [address] [place] [address] Oct, [facility] [address] [id number] [address] [place] [address], [place] [address] Oct, [facility] [address] [id number] [address] [place] [address], [place] [address] Oct, [facility] [address] [id number] [address] [place] [address], [place] [address] Oct, [facility] [address] [id number] [address] [place] [address], [place] [address] Oct, [facility] [address] [id number] [address] [place] [address], [place] [address] Oct, [facility] [address] [id number] [address] [place] [address], [place] [address] Oct, [facility] [address] [id number] [address] [place] [address], [place] [address] Oct, [facility] [address] [id number] [address] [place] [address], [place] [address] Oct, [facility] [address] [id number] [address] [place] [address], [place] [address] Oct, [facility] [address] [id number] [address] [place] [address], [place] [address] Sep, [facility] [address] [id number] [address] [place] [address], [place] [address] Sep, [facility] [address] [id number] [address] [place] [address], [place] [address] Sep, [facility] [address] [id number] [address] [place] [address], [place] [address] Sep, [facility] [address] [id number] [address] [place] [address], [place] [address] Sep, [facility] [address] [id number] [address] [place] [address], [place] [address] Sep, [facility] [address] [id number] [address] [place] [address], [place] [address] Sep, [facility] [address] [id number] [address] [place] [address], [place] [address] Sep, [facility] [address] [id number] [address] [place] [address], [place] [address] Sep, [facility] [address] [id number] [address] [place] [address], [place] [address] Sep, [facility] [address] [id number] [address] [place] [address], [place] [address] Sep, [facility] [address] [id number] [address] [place] [address], [place] [address] Aug, [facility] [address] [id number] [address] [place] [address], [place] [address] Aug, [facility] [address] [id number] [address] [place] [address], [place] [address] Aug, [facility] [address] [id number] [address] [place] [address], [place] [address] Aug, [facility] [address] [id number] [address] [place] [address], [place] [address] Aug, [facility] [address] [id number] [address] [place] [address], [place] [address] Aug, [facility] [address] [id number] [address] [place] [address], [place] [address] Aug, [facility] [address] [id number] [address] [place] [address], [place] [address] Aug, [facility] [address] [id number] [address] [place] [address], [place] [address] Aug, [facility] [address] [id number] [address] [place] [address], [place] [address] Aug, [facility] [address] [id number] [address] [place] [address], [place] [address] 22 Jul, 2012 [facility] [address] [id number] [facility] [place] [address] 20 Jul, 2012 [facility] [address] [id number] [address] [place] [address], [place] [address] 10 Jul, 2012 [facility] [address] [id number] [address] [place] [address], [place] [address] 06 Jul, 2012 [facility] [address] [id number] [address] [place] [address], [place] [address] 30 Jun, 2012 [facility] [address] [id number] [address] [place] [address], [place] [address] Jun, [facility] [address] [id number] [address] [place] [address], [place] [address] Jun, [facility] [address] [id number] [address] [place] [address], [place] [address] Jun, [facility] [address] [id number] [address] [place] [address], [place] [address] Jun, [facility] [address] [id number] [address] [place] [address], [place] [address] Jun, [facility] [address] [id number] [address] [place] [address], [place] [address] Jun, [facility] [address] [id number] [address] [place] [address], [place] [address] May, [facility] [address] [id number] [address] [place] [address], [place] [address] May, [facility] [address] [id number] [address] [place] [address], [place] [address] May, [facility] [address] [id number] [address] [place] [address], [place] [address] May, [facility] [address] [id number] [address] [place] [address], [place] [address] May, [facility] [address] [id number] [address] [place] [address], [place] [address] 27 Apr, 2012 [facility] [place] [address] [id number] [address] [place] [address], [place] [address] Apr, [facility] [address] [id number] [address] [place] [address], [place] [address] Apr, [facility] [place] [address] [id number] [address] [place] [address], [place] [address] Apr, [facility] [address] [id number] [address] [place] [address], [place] [address] Apr, [facility] [address] [id number] [address] [place] [address], [place] [address] March, [facility] [place] [address] [id number] [address] [place] [address], [place] [address] March, [facility] [place] [address] [id number] [address] [place] [address], [place] [address] March, [facility] [place] [address] [id number] [address] [place] [address], [place] [address] March, [facility] [place] [address] [id number] [address] [place] [address], [place] [address] March, [facility] [address] [id number] [address] [place] [address], [place] [address] March, [facility] [place] [address] [id number] [address] [place] [address], [place] [address] March, [facility] [address] [id number] [address] [place] [address], [place] [address] March, [facility] [address] [id number] [address] [place] [address], [place] [address] March, [facility] [address] [id number] [address] [place] [address], [place] [address] March, [facility] [address] [id number] [address] [place] [address], [place] [address] Feb, [facility] [place] [address] [id number] [address] [place] [address], [place] [address] 27 Feb, 2012 [facility] [address] [id number] [address] [place] [address], [place] [address] 26 Feb, 2012 [facility] [address] [id number] [address] [place] [address], [place] [address] Feb, [facility] [address] [id number] [address] [place] [address], [place] [address] Feb, [facility] [address] [id number] [address] [place] [address], [place] [address] Feb, [facility] [address] [id number] [address] [place] [address], [place] [address] Feb, [facility] [address] [id number] [address] [place] [address], [place] [address] Feb, [facility] [address] [id number] [address] [place] [address], [place] [address] Feb, [facility] [address] [id number] [address] [place] [address], [place] [address] Jan, [facility] [address] [id number] [address] [place] [address], [place] [address] Jan, [facility] [address] [id number] [address] [place] [address], [place] [address] Jan, [facility] [address] [id number] [address] [place] [address], [place] [address] Jan, [facility] [address] [id number] [address] [place] [address], [place] [address] Dec, [facility] [address] [id number] [address] [place] [address], [place] [address] Dec, [facility] [address] [id number] [address] [place] [address], [place] [address] Nov, [facility] [address] [id number] [address] [place] [phone] Nov, [facility] [address] [id number] [address] [place] [id number] Nov, [facility] [address] [id number] [address] [place] [phone] Nov, [facility] [address] [id number] [address] [place] [phone] Nov, [facility] [address] [id number] [address] [place] [id number] Oct, [facility] [address] [id number] [address] [place] [id number] Oct, [facility] [address] [id number] [address] [place] [phone] Oct, [facility] [address] [id number] [address] [place] [id number] Oct, [facility] [address] [id number] [address] [place] [id number] Oct, [facility] [address] [id number] [address] [place] [phone] Oct, [facility] [address] [id number] [address] [place] [id number] Oct, [facility] [address] [id number] [address] [place] [phone] Oct, [facility] [address] [id number] [address] [place] [id number] Sep, IMMUNIZATIONS No Known Immunizations SOCIAL HISTORY [...] No Surgical history information Hospitalization History [facility]- Urosepsis, ab d pain and fever, discharged 11/27/2017 11/26/2017 Hospitalization History [facility]- Went Unrepsonsive, Hit head 2017 Hospitalization History [facility]- Back Pain 8
--- OUTSIDE RECORDS SUMMARY | 2020-06-18 15:44 | XMS REPORT ---
Author Author Sanjuanita VEGA Organization [facility] Address [address] [place] [address] Care Team Providers Care Installer [employer] Name Role Phone SHANIQUE VEGA Unavailable PROBLEMS Type Condition ICD9-CM Code XMM62-VG Code Onset Dates Condition S tatus SNOMED Code Problem Hypertension I10 Active 0391730 3 Problem Hyperlipidemia E78.5 Active 28516 004 Problem Coronary artery disease I25.10 Active 27746442 Problem Low back pain M54.5 Active 524339 009 Problem Other chronic pain G89.29 Active 8 7925141 Problem Ventral hernia without obstruction or gangrene K43 .9 Active 475761617 Problem Type 2 diabetes mellitus wit hout complication, without long-term current use of insulin E11.9 Active 826697681 Problem Anxiety F41.9 Active 31149225 Problem Peripheral vascular disease I73.9 Ac tive 905096282 Problem Insomnia G47.00 Active 462460718 Problem Microcytic anemia D50.9 Active 23 1376905 Problem Pharyngeal dysphagia R13.13 Active 81818240869516 Problem Other iron deficiency anemia D50.8 A ctive 45343069 Problem Reactive depression F32.9 Active 31240878 Problem Paroxysmal atrial fibrillation I48.0 Active 321283690 Problem Postmenopausal atrophic vaginitis N95.2 Active 98636566 Problem Encounter for suprapubic catheter care Z43.5 Active 480679374 Problem Neurogenic bladder N31.9 Active 3 06092269 ALLERGIES No Information ENCOUNTERS Encounter Location Date Diagnosis [facility] [address] [facility] [id number] [address] [place] [phone] 04 Apr, 2020 [facility] [address] [facility] [id number] [address] [place] [phone] 15 Mar, 2020 [facility] [address] [facility] [id number] [address] [place] [id number] 13 Mar, 2020 Anxiety F41.9 and Strain of right shoulder, subsequent encounter S46.911D [facility] [address] [id number] [address] [place] [address] Feb, Anxiety F41.9 and Strain of right shoulder, subsequent encounter S46.911D [facility] [address] [id number] [address] [place] [address] Jan, Anxiety F41.9 and Strain of right shoulder, subsequent encounter S46.911D [facility] [address] [id number] [address] [place] [address] Jan, Via [facility] [address] [place] [id number] Jan, Neurogenic bladder N31.9 [facility] [address] [id number] [address] [place] [address] Dec, 2019 [facility] [address] [id number] [address] [place] [address] Dec, 2019 [place] [address] [id number] [address] [place] [address] Dec, Anxiety F41.9 and Strain of right shoulder, subsequent encounter S46.911D [facility] [address] [id number] [address] [place] [address] 10 Dec, 2019 Other iron deficiency anemia D50.8 [place] [address] [id number] [address] [place] [id number] 04 Dec, 2019 Via [facility] [address] [place] [id number] Dec, Encounter for suprapubic catheter care Z 43.5 and Microcytic anemia D50.9 [place] [address] [id number] [address] [place] [address] Dec, [facility] [address] [id number] [address] [place] [address] Nov, Anxiety F41.9 and Strain of right shoulder, subsequent encounter S46.911D [facility] [address] [id number] [address] [place] [phone] 07 Nov, 2019 Hypertension I10 [facility] [employer] [address] [place] [id number] Nov, Pneumonia of both lungs due to infectiou s organism, unspecified part of lung J18.9 and Suprapubic catheter Z93.59 [facility] [address] [id number] [address] [place] [address] Nov, Hypertension I10 and Reactiv e depression F32.9 [place] [address] [id number] [address] [place] [address] Oct, Strain of right shoulder, scherer bsequent encounter S46.911D and Anxiety F41.9 [place] [address] [id number] [address] [place] [address] Oct, Via [facility] [employer] [address] [place] [id number] Oct, Suprapubic catheter Z93.59 and Candidias is, intertriginous B37.2 [facility] [address] [id number] [address] [place] [address] Oct, Suprapubic catheter Z93.59 [facility] [address] [id number] [address] [place] [phone] Oct, Anxiety F41.9 and Strain of right shoulder, subsequent encounter S46.911D [facility] [address] [id number] [address] [place] [address] Sep, [facility] [address] [id number] [address] [place] [address] Sep, [facility] [address] [id number] [address] [place] [address] Sep, Via [facility] [address] [place] [id number] Sep, Suprapubic catheter Z93.59 [facility] [address] [id number] [address] [place] [address] Sep, Anxiety F41.9 and Strain of right shoulder, subsequent encounter S46.911D [facility] [address] [id number] [address] [place] [address] Aug, [facility] [address] [id number] [address] [place] [address] Aug, [facility] [address] [id number] [address] [place] [address] Aug, Anxiety F41.9 and Strain of right shoulder, subsequent encounter S46.911D [facility] [address] [place] [id number] Aug, Suprapubic catheter Z93.59 [place] [address] [id number] [address] [place] [address] Jul, Strain of right shoulder, scherer bsequent encounter S46.911D and Anxiety F41.9 [facility] [address] [id number] [address] [place] [address] Jul, Anxiety F41.9 [facility] [address] [id number] [address] [place] [address] Jun, [facility] [address] [id number] [address] [place] [address] Jun, [facility] [address] [id number] [address] [place] [address] Jun, [facility] [address] [id number] [address] [place] [address] Jun, Strain of right shoulder, scherer bsequent encounter S46.911D [facility] [address] [id number] [address] [place] [address] Jun, Strain of right shoulder, scherer bsequent encounter S46.911D [facility] [address] [id number] [address] [place] [address] Jun, Anxiety F41.9 Via [facility] [address] [place] [id number] Jun, Neurogenic bladder N31.9 and Anxiety F41 .9 Via [employer] [facility] [address] [place] [id number] May, Anxiety F41.9 [place] [address] [id number] [address] [place] [address] May, Dysuria R30.0 [place] [address] [id number] [address] [place] [address] May, Strain of right shoulder, scherer bsequent encounter S46.911D and Anxiety F41.9 [place] [address] [id number] [address] [place] [address] Apr, Via [facility] [address] [place] [id number] Apr, Strain of right shoulder, subsequent enc ounter S46.911D [place] [address] [id number] [address] [place] [address] Apr, Strain of right shoulder, scherer bsequent encounter S46.911D and Anxiety F41.9 [facility] [address] [place] [id number] 13 Apr, 2019 Type 2 diabetes mellitus without complic ation, without long-term current use of insulin E11.9 and Neurogenic bladder N31.9 [facility] [employer] [facility] [address] [place] [id number] Apr, Strain of right shoulder, subsequent enc ounter S46.911D ; History of GI bleed Z87.19 ; Neurogenic bladder N31.9 and Reactive depression F32.9 [place] [address] [id number] [address] [place] [address] 10 Apr, 2019 Acute pain of left shoulder M25.512 [place] [address] [id number] [address] [place] [phone] 07 Apr, 2019 [place] [address] [id number] [address] [place] [phone] Apr, Anxiety F41.9 and 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 [facility] [address] [place] [id number] March, Gastrointestinal hemorrhage associated w ith acute gastritis K29.01 [facility] [address] [id number] [address] [place] [address] March, Via [facility] [employer] [address] [place] [id number] March, Bronchitis J40 [facility] [address] [id number] [address] [place] [address] March, Cough R05 [facility] [address] [id number] [address] [place] [phone] March, Other chronic pain G89.29 [facility] [address] [id number] [address] [place] [address] March, Anxiety F41.9 [facility] [address] [id number] [address] [place] [address] March, [facility] [address] [id number] [address] [place] [address] Feb, Other chronic pain G89.29 [facility] [address] [id number] [address] [place] [address] Feb, Anxiety F41.9 [facility] [address] [id number] [address] [place] [address] Feb, Other chronic pain G89.29 Via [facility] [employer] [address] [place] [id number] Feb, Neurogenic bladder N31.9 and Suprapubic catheter Z93.59 [facility] [address] [id number] [address] [place] [address] Jan, Anxiety F41.9 [facility] [address] [id number] [address] [place] [address] Dec, Anxiety F41.9 [facility] [address] [id number] [address] [place] [address] Dec, Other chronic pain G89.29 an d Anxiety F41.9 [facility] [address] [id number] [address] [place] [address] Dec, Via [employer] [facility] [address] [place] [id number] Dec, Neurogenic bladder N31.9 and Suprapubic catheter Z93.59 [facility] [address] [id number] [address] [place] [address] Nov, Other chronic pain G89.29 an d Anxiety F41.9 [facility] [address] [id number] [address] [place] [phone] Nov, Via [employer] [facility] [address] [place] [id number] Nov, Suprapubic catheter Z93.59 [facility] [address] [id number] [address] [place] [address] Oct, Other chronic pain G89.29 an d Anxiety F41.9 [facility] [address] [id number] [address] [place] [address] Oct, [facility] [address] [id number] [address] [place] [address] Oct, Suprapubic catheter Z93.59 [facility] [address] [id number] [address] [place] [phone] Oct, Via [employer] [facility] [address] [place] [id number] Oct, [facility] [address] [id number] [address] [place] [address] Oct, Anxiety F41.9 [facility] [address] [id number] [address] [place] [address] Oct, Anxiety F41.9 [facility] [employer] [address] [place] [id number] Oct, Other chronic pain G89.29 [facility] [address] [id number] [address] [place] [address] Sep, Other chronic pain G89.29 [facility] [employer] [address] [place] [id number] Sep, Suprapubic catheter Z93.59 and Cervicalg ia M54.2 [facility] [address] [id number] [address] [place] [address] Sep, [facility] [address] [id number] [address] [place] [address] Sep, [facility] [address] [id number] [address] [place] [address] Sep, Via [employer] [address] [place] [id number] Aug, Cystitis N30.90 [facility] [address] [id number] [address] [place] [phone] Aug, [facility] [address] [id number] [address] [place] [address] Aug, Other chronic pain G89.29 [facility] [address] [id number] [address] [place] [phone] Aug, [facility] [employer] [address] [place] [id number] Aug, Encounter for suprapubic catheter care Z 43.5 [facility] [address] [id number] [address] [place] [phone] Jul, Via [employer] [address] [place] [id number] Jul, [facility] [address] [id number] [address] [place] [address] Jul, Other chronic pain G89.29 [facility] [address] [id number] [address] [place] [address] Jul, [facility] [address] [id number] [address] [place] [address] Jul, Via [employer] [address] [place] [id number] Jun, Postmenopausal atrophic vaginitis N95.2 [place] [address] [id number] [address] [place] [address] Jun, Other chronic pain G89.29 [place] [address] [id number] [address] [place] [address] Jun, Via [employer] [address] [place] [id number] May, Anxiety F41.9 ; Type 2 diabetes mellitus without complication, without long-term current use of insulin E11.9 ; Hypertension I10 ; Low back pain M54.5 ; Paroxysmal atrial fibrillation I48.0 and 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 [place] [address] [id number] [address] [place] [address] May, Other chronic pain G89.29 Via [employer] [address] [place] [id number] May, Low back pain M54.5 [place] [address] [id number] [address] [place] [address] May, [place] [address] [id number] [address] [place] [address] Apr, Other chronic pain G89.29 [place] [address] [id number] [address] [place] [address] Apr, [place] [address] [id number] [address] [place] [address] Apr, Via [employer] [address] [place] [id number] Apr, Closed compression fracture of L3 lumbar vertebra with routine healing, subsequent encounter S32.030D [facility] [employer] [address] [place] [id number] 14 Apr, 2018 Low back pain M54.5 [facility] [employer] [address] [place] [id number] 12 Apr, 2018 Coccydynia M53.3 [facility] [address] [id number] [address] [place] [address] March, [facility] [address] [id number] [address] [place] [address] March, Other chronic pain G89.29 [facility] [address] [id number] [address] [place] [address] March, [facility] [address] [id number] [address] [place] [address] March, [facility] [address] [id number] [address] [place] [address] Feb, [facility] [address] [id number] [address] [place] [address] Feb, Other chronic pain G89.29 [facility] [employer] [address] [place] [id number] Feb, Other chronic pain G89.29 and Anxiety F4 1.9 [facility] [address] [id number] [address] [place] [address] Feb, [facility] [address] [id number] [address] [place] [address] Jan, [facility] [address] [id number] [address] [place] [address] Jan, [facility] [address] [id number] [address] [place] [address] Jan, [facility] [address] [id number] [address] [place] [address] Jan, [facility] [address] [id number] [address] [place] [address] Dec, Via [employer] [address] [place] [id number] Dec, Peripheral vascular disease I73.9 ; 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 ; Other chronic pain G89.29 ; Anxiety F41.9 ; Reactive depression F32.9 ; Insomnia G47.00 and Type 2 diabetes mellitus without complication, without long-term current use of insulin E11.9 [facility] [address] [place] [address] [id number] [address] Nov, [facility] [address] [id number] [place] [id number] Nov, Anxiety F41.9 [facility] [address] [facility] [id number] [address] [place] [address] Nov, [facility] [address] [id number] [place] [id number] Nov, Anxiety F41.9 [facility] [employer] [address] [place] [id number] Nov, Status post surgery Z98.890 ; Confused R 41.0 ; Anxiety F41.9 and Other chronic pain G89.29 [place] [address] [id number] [place] [id number] Nov, Other chronic pain G89.29 [facility] [address] [facility] [id number] [address] [place] [address] Oct, [facility] [address] [id number] [place] [id number] Oct, Other chronic pain G89.29 [facility] [address] [facility] [id number] [address] [place] [address] Oct, Anxiety F41.9 [facility] [address] [id number] [place] [id number] Sep, Other chronic pain G89.29 [facility] [address] [id number] [place] [id number] Sep, [facility] [address] [place] [id number] Aug, Dysuria R30.0 and Anxiety F41.9 [facility] [address] [id number] [address] [place] [address] Aug, [facility] [address] [id number] [place] [id number] Aug, Other chronic pain G89.29 [facility] [address] [id number] [address] [place] [address] Jul, Other chronic pain G89.29 [facility] [address] [id number] [place] [facility] [place] [id number] Jun, [facility] [address] [id number] [id number] Jun, Other chronic pain G89.29 [facility] [address] [id number] [address] [place] [address] Jun, [facility] [address] [id number] [address] [place] [address] May, Other chronic pain G89.29 [facility] [address] [id number] [address] [place] [address] Apr, Other chronic pain G89.29 Via [employer] [address] [place] [id number] Apr, Reactive depression F32.9 and Pharyngeal dysphagia R13.13 [facility] [address] [id number] [address] [place] [address] Apr, Urinary tract infection with out hematuria, site unspecified N39.0 [facility] [address] [id number] [address] [place] [address] March, Other chronic pain G89.29 [facility] [address] [id number] [address] [place] [address] Feb, Other chronic pain G89.29 [facility] [address] [id number] [address] [place] [address] Feb, [facility] [address] [id number] [place] [id number] Feb, [facility] [employer] [address] [place] [id number] Feb, Dysuria R30.0 and Ventral hernia without obstruction or gangrene K43.9 [facility] [address] [id number] [address] [place] [address] Jan, Other chronic pain G89.29 [facility] [address] [id number] [place] [id number] Dec, Other chronic pain G89.29 [facility] [address] [facility] [id number] [address] [place] [phone] Nov, Other chronic pain G89.29 [facility] [address] [place] [id number] Nov, Lymphadenitis I88.9 [facility] [address] [id number] [address] [place] [address] Nov, Other chronic pain G89.29 [facility] [address] [id number] [address] [place] [address] Nov, [facility] [address] [id number] [place] [id number] Nov, Other chronic pain G89.29 [facility] [address] [place] [id number] Oct, Low back pain M54.5 ; Hypertension I10 a nd Type 2 diabetes mellitus without complication, without long-term current use of insulin E11.9 [facility] [address] [id number] [address] [place] [id number] Oct, [facility] [address] [facility] [id number] [address] [place] [phone] Oct, [facility] [address] [id number] [address] [place] [phone] Oct, [facility] [address] [id number] [address] [place] [id number] Oct, [facility] [address] [id number] [address] [place] [phone] Sep, [facility] [address] [id number] [address] [place] [phone] Sep, [facility] [address] [id number] [address] [place] [id number] Aug, Other chronic pain G89.29 [facility] [address] [id number] [address] [place] [phone] Jul, [facility] [address] [id number] [address] [place] [id number] Jul, [facility] [address] [id number] [address] [place] [phone] Jul, [facility] [address] [id number] [address] [place] [phone] Jun, [facility] [address] [id number] [address] [place] [phone] Jun, Via [facility] [address] [place] [id number] Jun, Low back pain M54.5 ; Other chronic pain G89.29 and Coronary artery disease I25.10 [facility] [address] [id number] [address] [place] [phone] Jun, [facility] [address] [id number] [address] [place] [phone] May, [facility] [address] [id number] [address] [place] [id number] May, [facility] [address] [id number] [address] [place] [id number] May, Other chronic pain G89.29 [facility] [address] [id number] [address] [place] [id number] 13 May, 2016 [facility] [address] [id number] [address] [place] [id number] 28 Apr, 2016 [facility] [address] [id number] [address] [place] [id number] 17 Apr, 2016 Acute cystitis without hemat uria N30.00 [facility] [address] [id number] [address] [place] [phone] 16 Apr, 2016 Acute cystitis without hemat uria N30.00 ; Coronary artery disease I25.10 ; Low back pain M54.5 and Other chronic pain G89.29 [facility] [address] [id number] [address] [place] [id number] 13 Apr, 2016 Other chronic pain G89.29 [facility] [facility] [address] [id number] [address] [place] [address] March, Other chronic pain G89.29 [facility] [address] [id number] [address] [place] [address] 18 Feb, 2016 [facility] [address] [id number] [address] [place] [address] Feb, Arthritis M19.90 [facility] [address] [id number] [address] [place] [address] Feb, [facility] [address] [id number] [address] [place] [id number] 30 Jan, 2016 [facility] [address] [id number] [address] [place] [address] Jan, [facility] [address] [id number] [address] [place] [address] Jan, Other chronic pain G89.29 [facility] [address] [id number] [address] [place] [phone] 17 Jan, 2016 Hypertension I10 ; Coronary artery disease I25.10 and Insomnia G47.00 [facility] [address] [id number] [address] [place] [address] Jan, [facility] [address] [id number] [address] [place] [address] Dec, Right hip pain M25.551 [facility] [address] [id number] [address] [place] [id number] Dec, [facility] [address] [id number] [address] [place] [phone] Dec, [facility] [address] [id number] [address] [place] [id number] Dec, [facility] [address] [id number] [address] [place] [address] Dec, Other chronic pain G89.29 [facility] [address] [id number] [address] [place] [address] Dec, [facility] [address] [id number] [address] [place] [address] Nov, [facility] [address] [id number] [address] [place] [id number] Nov, Other chronic pain G89.29 [facility] [address] [id number] [address] [place] [address] Nov, Right hip pain M25.551 and C oronary artery disease I25.10 [facility] [address] [id number] [address] [place] [address] Nov, Other chronic pain G89.29 [facility] [address] [id number] [address] [place] [phone] Oct, [facility] [address] [id number] [address] [place] [address] Oct, [facility] [address] [id number] [address] [place] [address] Sep, [facility] [address] [id number] [address] [place] [address] Sep, [facility] [address] [id number] [address] [place] [id number] Aug, [facility] [address] [id number] [address] [place] [address] Aug, Hypertension I10 ; Coronary artery disease I25.10 and Arthritis M19.90 [facility] [address] [id number] [address] [place] [address] Jun, [facility] [address] [id number] [address] [place] [id number] Jun, Essential hypertension, jayson gn 401.1 ; Other chronic pain 338.29 and Chronic airway obstruction, not elsewhere classified 496 [facility] [address] [id number] [address] [place] [id number] Jun, [facility] [address] [id number] [address] [place] [id number] Jun, [facility] [address] [id number] [address] [place] [phone] Jun, [facility] [address] [id number] [address] [place] [phone] May, [facility] [address] [id number] [address] [place] [id number] May, [facility] [address] [id number] [address] [place] [phone] Apr, [facility] [address] [id number] [address] [place] [phone] Apr, [facility] [address] [id number] [address] [place] [id number] Apr, [facility] [address] [id number] [address] [place] [phone] March, [facility] [address] [id number] [address] [place] [address], [place] [address] March, [facility] [address] [id number] [address] [place] [address], [place] [address] March, [facility] [address] [id number] [address] [place] [address], [place] [address] March, [facility] [address] [id number] [address] [place] [address], [place] [address] March, Sialadenitis 527.2 [facility] [address] [id number] [address] [place] [address], [place] [address] Feb, [facility] [address] [id number] [address] [place] [address], [place] [address] Feb, [facility] [address] [id number] [address] [place] [address], [place] [address] Feb, [facility] [address] [id number] [address] [place] [address], [place] [address] Feb, [facility] [address] [id number] [address] [place] [address], [place] [address] Feb, [facility] [address] [id number] [address] [place] [address], [place] [address] Jan, [facility] [address] [id number] [address] [place] [address], [place] [address] Jan, [facility] [address] [id number] [address] [place] [address], [place] [address] Jan, [facility] [address] [id number] [address] [place] [address], [place] [address] Jan, [facility] [address] [id number] [address] [place] [address], [place] [address] Jan, [facility] [address] [id number] [address] [place] [address], [place] [address] Jan, [facility] [address] [id number] [address] [place] [address], [place] [address] Dec, 2014 [facility] [address] [id number] [address] [place] [address], [place] [address] Dec, 2014 [facility] [address] [id number] [address] [place] [address], [place] [address] Dec, 2014 [facility] [address] [id number] [address] [place] [address], [place] [address] Dec, 2014 [facility] [address] [id number] [address] [place] [address], [place] [address] Dec, [facility] [address] [id number] [address] [place] [address], [place] [address] Dec, [facility] [address] [id number] [address] [place] [address], [place] [address] Nov, [facility] [address] [id number] [address] [place] [address], [place] [address] Nov, [facility] [address] [id number] [address] [place] [address], [place] [address] Nov, [facility] [address] [id number] [address] [place] [address], [place] [address] Nov, [facility] [address] [id number] [address] [place] [address], [place] [address] Nov, [facility] [address] [id number] [address] [place] [address], [place] [address] Nov, [facility] [address] [id number] [address] [place] [address], [place] [address] Nov, [facility] [address] [id number] [address] [place] [address], [place] [address] Nov, [facility] [address] [id number] [address] [place] [address], [place] [address] Nov, [facility] [address] [id number] [address] [place] [address], [place] [address] Nov, [facility] [address] [id number] [address] [place] [address], [place] [address] Nov, [facility] [address] [id number] [address] [place] [address], [place] [address] Nov, [facility] [address] [id number] [address] [place] [address], [place] [address] Nov, [facility] [address] [id number] [address] [place] [address], [place] [address] Nov, [facility] [address] [id number] [address] [place] [address], [place] [address] Oct, [facility] [address] [id number] [address] [place] [address], [place] [address] Oct, [facility] [address] [id number] [address] [place] [address], [place] [address] Oct, [facility] [address] [id number] [address] [place] [address], [place] [address] Oct, [facility] [address] [id number] [address] [place] [address], [place] [address] Oct, [facility] [address] [id number] [address] [place] [address], [place] [address] Oct, [facility] [address] [id number] [address] [place] [address], [place] [address] 17 Oct, 2014 [facility] [address] [id number] [address] [place] [address], [place] [address] Oct, [facility] [address] [id number] [address] [place] [address], [place] [address] Oct, [facility] [address] [id number] [address] [place] [address], [place] [address] Sep, [facility] [address] [id number] [address] [place] [address], [place] [address] Sep, [facility] [address] [id number] [address] [place] [address], [place] [address] Sep, [facility] [address] [id number] [address] [place] [address], [place] [address] Sep, [facility] [address] [id number] [address] [place] [address], [place] [address] Sep, [facility] [address] [id number] [address] [place] [address], [place] [address] Sep, [facility] [address] [id number] [address] [place] [address], [place] [address] Sep, [facility] [address] [id number] [address] [place] [address], [place] [address] Sep, [facility] [address] [id number] [address] [place] [address], [place] [address] Sep, [facility] [address] [id number] [address] [place] [address], [place] [address] Sep, [facility] [address] [id number] [address] [place] [address], [place] [address] Sep, [facility] [address] [id number] [address] [place] [address], [place] [address] Sep, [facility] [address] [id number] [address] [place] [address], [place] [address] Aug, [facility] [address] [id number] [address] [place] [address], [place] [address] Aug, [facility] [address] [id number] [address] [place] [address], [place] [address] Aug, [facility] [address] [id number] [address] [place] [address], [place] [address] Aug, [facility] [address] [id number] [address] [place] [address], [place] [address] Aug, [facility] [address] [id number] [address] [place] [address], [place] [address] Aug, [facility] [address] [id number] [address] [place] [address], [place] [address] Aug, [facility] [address] [id number] [address] [place] [address], [place] [address] Aug, [facility] [address] [id number] [address] [place] [address], [place] [address] 30 Jul, 2014 [facility] [address] [id number] [address] [place] [address], [place] [address] 30 Jul, 2013 [facility] [address] [id number] [address] [place] [address], [place] [address] 30 Jul, 2014 [facility] [address] [id number] [address] [place] [address], [place] [address] 30 Jul, 2013 [facility] [address] [id number] [address] [place] [address], [place] [address] Jul, [facility] [address] [id number] [address] [place] [address], [place] [address] Jul, 2013 [facility] [address] [id number] [address] [place] [address], [place] [address] 15 Jul, 2014 [facility] [address] [id number] [address] [place] [address], [place] [address] 15 Jul, 2014 [facility] [address] [id number] [address] [place] [address], [place] [address] Jul, [facility] [address] [id number] [address] [place] [address], [place] [address] Jul, [facility] [address] [id number] [address] [place] [address], [place] [address] Jun, [facility] [address] [id number] [address] [place] [address], [place] [address] Jun, [facility] [address] [id number] [address] [place] [address], [place] [address] Jun, [facility] [address] [id number] [address] [place] [address], [place] [address] Jun, [facility] [address] [id number] [facility] [place] [address] Jun, [facility] [address] [id number] [address] [place] [address], [place] [address] Jun, [facility] [address] [id number] [address] [place] [address], [place] [address] Jun, [facility] [address] [id number] [address] [place] [address], [place] [address] Jun, [facility] [address] [id number] [address] [place] [address], [place] [address] Jun, [facility] [address] [id number] [address] [place] [address], [place] [address] Jun, [facility] [address] [id number] [address] [place] [address], [place] [address] Jun, [facility] [address] [id number] [address] [place] [address], [place] [address] Jun, [facility] [address] [id number] [address] [place] [address], [place] [address] Jun, [facility] [address] [id number] [address] [place] [address], [place] [address] Jun, [facility] [address] [id number] [address] [place] [address], [place] [address] Jun, [facility] [address] [id number] [address] [place] [address], [place] [address] Jun, [facility] [address] [id number] [address] [place] [address], [place] [address] Jun, [facility] [address] [id number] [address] [place] [address], [place] [address] Jun, [facility] [address] [id number] [address] [place] [address], [place] [address] Jun, [facility] [address] [id number] [facility] [address] Jun, [facility] [address] [id number] [address] [place] [address], [place] [address] Jun, [facility] [address] [id number] [facility] [place] [address] Jun, [facility] [address] [id number] [address] [place] [address], [place] [address] May, [facility] [address] [id number] [address] [place] [address], [place] [address] May, [facility] [address] [id number] [address] [place] [address], [place] [address] May, [facility] [address] [id number] [address] [place] [address], [place] [address] May, [facility] [address] [id number] [address] [place] [address], [place] [address] May, [facility] [address] [id number] [address] [place] [address], [place] [address] May, [facility] [address] [id number] [address] [place] [address], [place] [address] May, [facility] [address] [id number] [address] [place] [address], [place] [address] May, [facility] [address] [id number] [address] [place] [address], [place] [address] May, [facility] [address] [id number] [address] [place] [address], [place] [address] May, [facility] [address] [id number] [address] [place] [address], [place] [address] May, [facility] [address] [id number] [address] [place] [address], [place] [address] May, [facility] [address] [id number] [address] [place] [address], [place] [address] May, [facility] [address] [id number] [facility] [place] [address] Apr, [facility] [address] [id number] [address] [place] [address], [place] [address] Apr, [facility] [address] [id number] [address] [place] [address], [place] [address] Apr, [facility] [address] [id number] [address] [place] [address], [place] [address] Apr, [facility] [address] [id number] [address] [place] [address], [place] [address] Apr, [facility] [address] [id number] [address] [place] [address], [place] [address] Apr, [facility] [address] [id number] [address] [place] [address], [place] [address] Apr, [facility] [address] [id number] [address] [place] [address], [place] [address] Apr, [facility] [address] [id number] [address] [place] [address], [place] [address] Apr, [facility] [address] [id number] [address] [place] [address], [place] [address] March, [facility] [address] [id number] [address] [place] [address], [place] [address] March, [facility] [address] [id number] [address] [place] [address], [place] [address] March, [facility] [address] [id number] [address] [place] [address], [place] [address] March, [facility] [address] [id number] [address] [place] [address], [place] [address] March, [facility] [address] [id number] [address] [place] [address], [place] [address] March, [facility] [address] [id number] [address] [place] [address], [place] [address] March, [facility] [address] [id number] [address] [place] [address], [place] [address] March, [facility] [address] [id number] [address] [place] [address], [place] [address] March, [facility] [address] [id number] [address] [place] [address], [place] [address] March, [facility] [address] [id number] [address] [place] [address], [place] [address] March, [facility] [address] [id number] [address] [place] [address], [place] [address] March, [facility] [address] [id number] [address] [place] [address], [place] [address] March, [facility] [address] [id number] [address] [place] [address], [place] [address] March, [facility] [address] [id number] [address] [place] [address], [place] [address] March, [facility] [address] [id number] [address] [place] [address], [place] [address] March, [facility] [address] [id number] [address] [place] [address], [place] [address] March, [facility] [address] [id number] [address] [place] [address], [place] [address] March, [facility] [address] [id number] [address] [place] [address], [place] [address] March, [facility] [address] [id number] [address] [place] [address], [place] [address] March, [facility] [address] [id number] [address] [place] [address], [place] [address] Feb, [facility] [address] [id number] [address] [place] [address], [place] [address] Feb, [facility] [address] [id number] [facility] [place] [address] Feb, [facility] [address] [id number] [facility] [place] [address] Feb, [facility] [address] [id number] [facility] [place] [address] Feb, [facility] [address] [id number] [facility] [place] [address] Feb, [facility] [address] [id number] [facility] [place] [address] Feb, [facility] [address] [id number] [facility] [place] [address] Feb, [facility] [address] [id number] [address] [place] [address], [place] [address] Jan, [facility] [address] [id number] [address] [place] [address], [place] [address] Jan, [facility] [address] [id number] [address] [place] [address], [place] [address] Jan, [facility] [address] [id number] [address] [place] [address], [place] [address] 24 Jan, 2014 [facility] [address] [id number] [address] [place] [address], [place] [address] Jan, [facility] [address] [id number] [address] [place] [address], [place] [address] 13 Jan, 2014 [facility] [address] [id number] [address] [place] [address], [place] [address] Jan, [facility] [address] [id number] [address] [place] [address], [place] [address] Jan, [facility] [address] [id number] [address] [place] [address], [place] [address] 03 Jan, 2014 [facility] [address] [id number] [address] [place] [address], [place] [address] Jan, [facility] [address] [id number] [address] [place] [address], [place] [address] Dec, [facility] [address] [id number] [address] [place] [address], [place] [address] Dec, [facility] [address] [id number] [address] [place] [address], [place] [address] Dec, [facility] [address] [id number] [address] [place] [address], [place] [address] Dec, [facility] [address] [id number] [address] [place] [address], [place] [address] Dec, [facility] [address] [id number] [address] [place] [address], [place] [address] Dec, [facility] [address] [id number] [address] [place] [address], [place] [address] Dec, [facility] [address] [id number] [address] [place] [address], [place] [address] Dec, [facility] [address] [id number] [address] [place] [address], [place] [address] Nov, [facility] [address] [id number] [address] [place] [address], [place] [address] Nov, [facility] [address] [id number] [address] [place] [address], [place] [address] Nov, [facility] [address] [id number] [address] [place] [address], [place] [address] Nov, [facility] [address] [id number] [address] [place] [address], [place] [address] Nov, [facility] [address] [id number] [address] [place] [address], [place] [address] Nov, [facility] [address] [id number] [address] [place] [address], [place] [address] Nov, [facility] [address] [id number] [address] [place] [address], [place] [address] Nov, [facility] [address] [id number] [address] [place] [address], [place] [address] Nov, [facility] [address] [id number] [address] [place] [address], [place] [address] Nov, [facility] [address] [id number] [address] [place] [address], [place] [address] Nov, [facility] [address] [id number] [address] [place] [address], [place] [address] Nov, [facility] [address] [id number] [address] [place] [address], [place] [address] Nov, [facility] [address] [id number] [address] [place] [address], [place] [address] Oct, [facility] [address] [id number] [address] [place] [address], [place] [address] Oct, [facility] [address] [id number] [address] [place] [address], [place] [address] Oct, [facility] [address] [id number] [address] [place] [address], [place] [address] Oct, [facility] [address] [id number] [address] [place] [address], [place] [address] Oct, [facility] [address] [id number] [address] [place] [address], [place] [address] Oct, [facility] [address] [id number] [address] [place] [address], [place] [address] Oct, [facility] [address] [id number] [address] [place] [address], [place] [address] Oct, [facility] [address] [id number] [address] [place] [address], [place] [address] 17 Oct, 2013 [facility] [address] [id number] [address] [place] [address] [address] Oct, [facility] [address] [id number] [address] [place] [address], [place] [address] Oct, [facility] [address] [id number] [address] [place] [address], [place] [address] Oct, [facility] [address] [id number] [address] [place] [address], [place] [address] Oct, [facility] [address] [id number] [address] [place] [address], [place] [address] Oct, [facility] [address] [id number] [address] [place] [address], [place] [address] Sep, [facility] [address] [id number] [address] [place] [address], [place] [address] Sep, [facility] [address] [id number] [address] [place] [address], [place] [address] Sep, [facility] [address] [id number] [address] [place] [address], [place] [address] Sep, [facility] [address] [id number] [address] [place] [address], [place] [address] Sep, [facility] [address] [id number] [address] [place] [address] Sep, [facility] [address] [id number] [address] [place] [address] Sep, [facility] [address] [id number] [address] [place] [address] Sep, [facility] [address] [id number] [address] [place] [address], [place] [address] Sep, [facility] [address] [id number] [address] [place] [address] Sep, [facility] [address] [id number] [address] [place] [address] Aug, [facility] [address] [id number] [address] [place] [address], [place] [address] 24 Aug, 2012 [facility] [address] [id number] [address] [place] [address], [place] [address] 24 Aug, 2012 [facility] [address] [id number] [address] [place] [address], [place] [address] 24 Aug, 2012 [facility] [address] [id number] [address] [place] [address], [place] [address] 23 Aug, 2012 [facility] [address] [id number] [address] [place] [address], [place] [address] 23 Aug, 2012 [facility] [address] [id number] [address] [place] [address], [place] [address] 23 Aug, 2012 [facility] [address] [id number] [address] [place] [address], [place] [address] 23 Aug, 2012 [facility] [address] [id number] [address] [place] [address], [place] [address] 22 Aug, 2012 [facility] [address] [id number] [address] [place] [address], [place] [address] 22 Aug, 2012 [facility] [address] [id number] [address] [place] [address], [place] [address] 18 Aug, 2012 [facility] [address] [id number] [address] [place] [address], [place] [address] 18 Aug, 2012 [facility] [address] [id number] [address] [place] [address], [place] [address] 18 Aug, 2012 [facility] [address] [id number] [address] [place] [address] 18 Aug, 2012 [facility] [address] [id number] [address] [place] [address], [place] [address] 17 Aug, 2012 [facility] [address] [id number] [address] [place] [address], [place] [address] 14 Aug, 2012 [facility] [address] [id number] [address] [place] [address] 14 Aug, 2013 [facility] [address] [id number] [address] [place] [address], [place] [address] Aug, [facility] [address] [id number] [address] [place] [address], [place] [address] 20 Jul, 2013 [facility] [address] [id number] [address] [place] [address], [place] [address] 19 Jul, 2013 [facility] [address] [id number] [address] [place] [address], [place] [address] 18 Jul, 2013 [facility] [address] [id number] [address] [place] [address], [place] [address] Jul, [facility] [address] [id number] [address] [place] [address], [place] [address] Jul, [facility] [address] [id number] [address] [place] [address], [place] [address] Jun, [facility] [address] [id number] [address] [place] [address], [place] [address] Jun, [facility] [address] [id number] [address] [place] [address], [place] [address] Jun, [facility] [address] [id number] [address] [place] [address], [place] [address] Jun, [facility] [address] [id number] [address] [place] [address], [place] [address] Jun, [facility] [address] [id number] [address] [place] [address], [place] [address] Jun, [facility] [address] [id number] [address] [place] [address], [place] [address] Jun, [facility] [address] [id number] [address] [place] [address], [place] [address] Jun, [facility] [address] [id number] [address] [place] [address], [place] [address] Jun, [facility] [address] [id number] [address] [place] [address], [place] [address] Jun, [facility] [address] [id number] [address] [place] [address], [place] [address] May, [facility] [address] [id number] [address] [place] [address], [place] [address] May, [facility] [address] [id number] [address] [place] [address], [place] [address] May, [facility] [address] [id number] [address] [place] [address], [place] [address] May, [facility] [address] [id number] [address] [place] [address], [place] [address] May, [facility] [address] [id number] [address] [place] [address], [place] [address] May, [facility] [address] [id number] [address] [place] [address], [place] [address] May, [facility] [address] [id number] [address] [place] [address], [place] [address] May, [facility] [address] [id number] [address] [place] [address], [place] [address] May, [facility] [address] [id number] [address] [place] [address], [place] [address] Apr, [facility] [address] [id number] [address] [place] [address], [place] [address] Apr, [facility] [address] [id number] [address] [place] [address], [place] [address] Apr, [facility] [address] [id number] [address] [place] [address], [place] [address] Apr, [facility] [address] [id number] [address] [place] [address], [place] [address] Apr, [facility] [address] [id number] [address] [place] [address], [place] [address] Apr, [facility] [address] [id number] [address] [place] [address], [place] [address] 04 Apr, 2013 [facility] [address] [id number] [address] [place] [address], [place] [address] March, [facility] [address] [id number] [address] [place] [address], [place] [address] Feb, [facility] [address] [id number] [address] [place] [address], [place] [address] Feb, [facility] [address] [id number] [address] [place] [address], [place] [address] Feb, [facility] [address] [id number] [address] [place] [address], [place] [address] Jan, [facility] [address] [id number] [address] [place] [address], [place] [address] Jan, [facility] [address] [id number] [address] [place] [address], [place] [address] Jan, [facility] [address] [id number] [address] [place] [address], [place] [address] 14 Jan, 2013 [facility] [address] [id number] [address] [place] [address], [place] [address] Jan, [facility] [address] [id number] [address] [place] [address], [place] [address] Jan, [facility] [address] [id number] [address] [place] [address], [place] [address] Jan, [facility] [address] [id number] [address] [place] [address], [place] [address] Jan, [facility] [address] [id number] [address] [place] [address], [place] [address] Dec, [facility] [address] [id number] [address] [place] [address], [place] [address] Dec, [facility] [address] [id number] [address] [place] [address], [place] [address] 13 Dec, 2012 [facility] [address] [id number] [address] [place] [address], [place] [address] 11 Dec, 2012 [facility] [address] [id number] [address] [place] [address], [place] [address] 07 Dec, 2012 [facility] [address] [id number] [address] [place] [address], [place] [address] 06 Dec, 2012 [facility] [address] [id number] [address] [place] [address], [place] [address] 05 Dec, 2012 [facility] [address] [id number] [address] [place] [address], [place] [address] Nov, [facility] [address] [id number] [address] [place] [address], [place] [address] Nov, [facility] [address] [id number] [address] [place] [address], [place] [address] Nov, [facility] [address] [id number] [address] [place] [address], [place] [address] Nov, [facility] [address] [id number] [address] [place] [address], [place] [address] Nov, [facility] [address] [id number] [address] [place] [address], [place] [address] Nov, [facility] [address] [id number] [address] [place] [address], [place] [address] Nov, [facility] [address] [id number] [address] [place] [address], [place] [address] Oct, [facility] [address] [id number] [address] [place] [address], [place] [address] Oct, [facility] [address] [id number] [address] [place] [address], [place] [address] Oct, [facility] [address] [id number] [address] [place] [address], [place] [address] Oct, [facility] [address] [id number] [address] [place] [address], [place] [address] 17 Oct, 2012 [facility] [address] [id number] [address] [place] [address], [place] [address] Oct, [facility] [address] [id number] [address] [place] [address], [place] [address] Oct, [facility] [address] [id number] [address] [place] [address], [place] [address] Oct, [facility] [address] [id number] [address] [place] [address], [place] [address] Oct, [facility] [address] [id number] [address] [place] [address], [place] [address] Oct, [facility] [address] [id number] [address] [place] [address], [place] [address] Oct, [facility] [address] [id number] [address] [place] [address], [place] [address] Oct, [facility] [address] [id number] [address] [place] [address], [place] [address] Sep, [facility] [address] [id number] [address] [place] [address], [place] [address] Sep, [facility] [address] [id number] [address] [place] [address], [place] [address] Sep, [facility] [address] [id number] [address] [place] [address], [place] [address] Sep, [facility] [address] [id number] [address] [place] [address], [place] [address] Sep, [facility] [address] [id number] [address] [place] [address], [place] [address] Sep, [facility] [address] [id number] [address] [place] [address], [place] [address] Sep, [facility] [address] [id number] [address] [place] [address], [place] [address] Sep, [facility] [address] [id number] [address] [place] [address], [place] [address] Sep, [facility] [address] [id number] [address] [place] [address], [place] [address] Sep, [facility] [address] [id number] [address] [place] [address], [place] [address] Sep, [facility] [address] [id number] [address] [place] [address], [place] [address] Aug, [facility] [address] [id number] [address] [place] [address], [place] [address] Aug, [facility] [address] [id number] [address] [place] [address], [place] [address] Aug, [facility] [address] [id number] [address] [place] [address], [place] [address] Aug, [facility] [address] [id number] [address] [place] [address] Aug, [facility] [address] [id number] [address] [place] [address], [place] [address] Aug, [facility] [address] [id number] [address] [place] [address] Aug, [facility] [address] [id number] [address] [place] [address] Aug, [facility] [address] [id number] [address] [place] [address] Aug, [facility] [address] [id number] [address] [place] [address] Aug, [facility] [address] [id number] [address] [place] [address] Jul, [facility] [address] [id number] [address] [place] [address] Jul, [facility] [address] [id number] [address] [place] [address] 10 Jul, 2012 [facility] [address] [id number] [address] [place] [address], [place] [address] Jul, [facility] [address] [id number] [address] [place] [address], [place] [address] Jun, [facility] [address] [id number] [address] [place] [address], [place] [address] Jun, [facility] [address] [id number] [address] [place] [address], [place] [address] Jun, [facility] [address] [id number] [address] [place] [address], [place] [address] Jun, [facility] [address] [id number] [address] [place] [address], [place] [address] Jun, [facility] [address] [id number] [address] [place] [address], [place] [address] Jun, [facility] [address] [id number] [address] [place] [address], [place] [address] Jun, [facility] [address] [id number] [address] [place] [address], [place] [address] May, [facility] [address] [id number] [address] [place] [address], [place] [address] May, [facility] [address] [id number] [address] [place] [address], [place] [address] May, [facility] [address] [id number] [address] [place] [address], [place] [address] May, [facility] [address] [id number] [address] [place] [address], [place] [address] May, [facility] [address] [id number] [address] [place] [address], [place] [address] Apr, [facility] [address] [id number] [address] [place] [address], [place] [address] Apr, [facility] [address] [id number] [address] [place] [address], [place] [address] 13 Apr, 2012 [facility] [address] [id number] [address] [place] [address], [place] [address] Apr, [facility] [address] [id number] [address] [place] [address], [place] [address] Apr, [facility] [address] [id number] [address] [place] [address], [place] [address] March, [facility] [address] [id number] [address] [place] [address], [place] [address] March, [facility] [address] [id number] [address] [place] [address], [place] [address] March, [facility] [address] [id number] [address] [place] [address], [place] [address] March, [facility] [address] [id number] [address] [place] [address], [place] [address] March, [facility] [address] [id number] [address] [place] [address], [place] [address] March, [facility] [address] [id number] [address] [place] [address], [place] [address] March, [facility] [address] [id number] [address] [place] [address], [place] [address] March, [facility] [address] [id number] [address] [place] [address], [place] [address] March, [facility] [address] [id number] [address] [place] [address], [place] [address] March, [facility] [address] [id number] [address] [place] [address], [place] [address] Feb, [facility] [address] [id number] [address] [place] [address], [place] [address] Feb, [facility] [address] [id number] [address] [place] [address], [place] [address] Feb, [facility] [address] [id number] [address] [place] [address], [place] [address] Feb, [facility] [address] [id number] [address] [place] [address], [place] [address] Feb, [facility] [address] [id number] [address] [place] [address], [place] [address] Feb, [facility] [address] [id number] [address] [place] [address], [place] [address] Feb, [facility] [address] [id number] [address] [place] [address], [place] [address] Feb, [facility] [address] [id number] [address] [place] [address], [place] [address] Feb, [facility] [address] [id number] [address] [place] [address], [place] [address] Jan, [facility] [address] [id number] [address] [place] [address], [place] [address] Jan, [facility] [address] [id number] [address] [place] [address], [place] [address] 05 Jan, 2012 [facility] [address] [id number] [address] [place] [address], [place] [address] Jan, [facility] [address] [id number] [address] [place] [address], [place] [address] Dec, [facility] [address] [id number] [address] [place] [address], [place] [address] Dec, [facility] [address] [id number] [address] [place] [address], [place] [address] Nov, [facility] [address] [id number] [address] [place] [address], [place] [address] Nov, [facility] [address] [id number] [address] [place] [address], [place] [address] Nov, [facility] [address] [id number] [address] [place] [address] Nov, [facility] [address] [id number] [address] [place] [id number] Nov, [facility] [address] [id number] [address] [place] [address] Oct, [facility] [address] [id number] [address] [place] [id number] Oct, [facility] [address] [id number] [address] [place] [address] Oct, [facility] [address] [id number] [address] [place] [id number] Oct, [facility] [address] [id number] [address] [place] [id number] Oct, [facility] [address] [id number] [address] [place] [id number] Oct, [facility] [address] [id number] [address] [place] [id number] Oct, [facility] [address] [id number] [address] [place] [id number] Oct, [facility] [address] [id number] [address] [place] [id number] Sep, IMMUNIZATIONS No Known Immunizations SOCIAL HISTORY [...] fever, discharged 11/27/2017 11/26/2017 Hospitalization History [facility]- Went Unrepsonsive, Hit head 2017 Hospitalization History [facility]- Back Pain 8
--- OUTSIDE RECORDS SUMMARY | 2020-06-18 15:44 | XMS REPORT ---
Author Author Sanjuanita Abdul Doctor Organization [facility] Address Unknown Phone Unavailable Care Team Providers Care Cooperative Education Coordinator Name Role Phone Migration, Doctor Unavailable Unavailable PROBLEMS Type Condition ICD9-CM Code DZB43-SU Code Onset Dates Condition S tatus SNOMED Code Problem Hypertension I10 Active 8963407 3 Problem Hyperlipidemia E78.5 Active 66951 004 Problem Coronary artery disease I25.10 Active 04308603 Problem Low back pain M54.5 Active 338965 009 Problem Other chronic pain G89.29 Active 8 8989918 Problem Ventral hernia without obstruction or gangrene K43 .9 Active 944017626 Problem Type 2 diabetes mellitus wit hout complication, without long-term current use of insulin E11.9 Active 455771493 Problem Anxiety F41.9 Active 65798518 Problem Peripheral vascular disease I73.9 Ac tive 688326557 Problem Insomnia G47.00 Active 341921731 Problem Microcytic anemia D50.9 Active 23 4684602 Problem Pharyngeal dysphagia R13.13 Active 11299600443882 Problem Other iron deficiency anemia D50.8 A ctive 77597166 Problem Reactive depression F32.9 Active 57727059 Problem Paroxysmal atrial fibrillation I48.0 Active 966307848 Problem Postmenopausal atrophic vaginitis N95.2 Active 26872513 Problem Encounter for suprapubic catheter care Z43.5 Active 385868822 Problem Neurogenic bladder N31.9 Active 3 [id number] ALLERGIES No Information ENCOUNTERS Encounter Location Date Diagnosis [facility] [address] [facility] [place] [id number] [address] [place] [phone] March, [facility] [address] [facility] [place] [id number] [address] [place] [address] March, Anxiety F41.9 and Strain of right shoulder, subsequent encounter S46.911D [facility] [address] [facility] [place] [id number] [address] [place] [address] Feb, Anxiety F41.9 and Strain of right shoulder, subsequent encounter S46.911D [facility] [address] [id number] [address] [place] [address] 24 Jan, 2020 Anxiety F41.9 and Strain of right shoulder, subsequent encounter S46.911D [facility] [address] [id number] [address] [place] [phone] 17 Jan, 2020 [facility] [address] [place] [id number] Jan, Neurogenic bladder N31.9 [facility] [address] [id number] [address] [place] [address] Dec, 2019 [facility] [address] [id number] [address] [place] [address] Dec, 2019 [place] [address] [id number] [address] [place] [address] Dec, Anxiety F41.9 and Strain of right shoulder, subsequent encounter S46.911D [facility] [address] [id number] [address] [place] [address] 10 Dec, 2019 Other iron deficiency anemia D50.8 [facility] [address] [id number] [address] [place] [address] 04 Dec, 2019 [facility] [address] [place] [address] Dec, Encounter for suprapubic catheter care Z 43.5 and Microcytic anemia D50.9 [facility] [address] [id number] [address] [place] [address] 03 Dec, 2019 [facility] [address] [id number] [address] [place] [address] Nov, Anxiety F41.9 and Strain of right shoulder, subsequent encounter S46.911D [facility] [address] [id number] [address] [place] [address] Nov, Hypertension I10 [facility] [address] [place] [id number] Nov, Pneumonia of both lungs due to infectiou s organism, unspecified part of lung J18.9 and Suprapubic catheter Z93.59 [facility] [address] [id number] [address] [place] [address] Nov, Hypertension I10 and Reactiv e depression F32.9 [facility] [address] [id number] [address] [place] [address] Oct, Strain of right shoulder, scherer bsequent encounter S46.911D and Anxiety F41.9 [place] [address] [id number] [address] [place] [address] Oct, Via [facility] [address] [place] [id number] Oct, Suprapubic catheter Z93.59 and Candidias is, intertriginous B37.2 [place] [address] [id number] [address] [place] [address] Oct, Suprapubic catheter Z93.59 [facility] [address] [id number] [address] [place] [address] Oct, Anxiety F41.9 and Strain of right shoulder, subsequent encounter S46.911D [facility] [address] [id number] [address] [place] [address] Sep, [facility] [address] [id number] [address] [place] [address] Sep, [facility] [address] [id number] [address] [place] [address] Sep, Via [facility] [address] [place] [address] Sep, Suprapubic catheter Z93.59 [facility] [address] [id number] [address] [place] [address] Sep, Anxiety F41.9 and Strain of right shoulder, subsequent encounter S46.911D [facility] [address] [id number] [address] [place] [phone] Aug, [facility] [address] [id number] [address] [place] [address] Aug, [facility] [address] [id number] [address] [place] [address] Aug, Anxiety F41.9 and Strain of right shoulder, subsequent encounter S46.911D [facility] [address] [place] [id number] Aug, Suprapubic catheter Z93.59 [facility] [address] [id number] [address] [place] [address] Jul, Strain of right shoulder, scherer bsequent encounter S46.911D and Anxiety F41.9 [facility] [address] [id number] [address] [place] [address] Jul, Anxiety F41.9 [facility] [address] [id number] [address] [place] [address] Jun, [facility] [address] [id number] [address] [place] [address] Jun, [facility] [address] [id number] [address] [place] [address] Jun, [facility] [address] [id number] [address] [place] [address] Jun, Strain of right shoulder, scherer bsequent encounter S46.911D [facility] [address] [id number] [address] [place] [address] Jun, Strain of right shoulder, scherer bsequent encounter S46.911D [facility] [address] [id number] [address] [place] [address] Jun, Anxiety F41.9 [facility] [address] [place] [id number] Jun, Neurogenic bladder N31.9 and Anxiety F41 .9 [facility] [address] [place] [id number] May, Anxiety F41.9 [place] [address] [id number] [address] [place] [address] May, Dysuria R30.0 [place] [address] [id number] [address] [place] [address] May, Strain of right shoulder, scherer bsequent encounter S46.911D and Anxiety F41.9 [place] [address] [id number] [address] [place] [address] Apr, [facility] [address] [place] [id number] Apr, Strain of right shoulder, subsequent enc ounter S46.911D [place] [address] [facility] [place] [facility] [id number] [address] [place] [address] 14 Apr, 2019 Strain of right shoulder, scherer bsequent encounter S46.911D and Anxiety F41.9 [facility] [address] [place] [id number] 13 Apr, 2019 Type 2 diabetes mellitus without complic ation, without long-term current use of insulin E11.9 and Neurogenic bladder N31.9 [facility] [address] [place] [address] Apr, Strain of right shoulder, subsequent enc ounter S46.911D ; History of GI bleed Z87.19 ; Neurogenic bladder N31.9 and Reactive depression F32.9 [place] [address] [id number] [address] [place] [address] 10 Apr, 2019 Acute pain of left shoulder M25.512 [place] [address] [id number] [address] [place] [address] 07 Apr, 2019 [place] [address] [id number] [address] [place] [address] 06 Apr, 2019 Anxiety F41.9 and 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 [facility] [address] [place] [id number] March, Gastrointestinal hemorrhage associated w ith acute gastritis K29.01 [facility] [address] [id number] [address] [place] [address] March, Via [facility] [address] [place] [address] March, Bronchitis J40 [facility] [address] [id number] [address] [place] [address] March, Cough R05 [facility] [address] [id number] [address] [place] [address] March, Other chronic pain G89.29 [facility] [address] [id number] [address] [place] [address] March, Anxiety F41.9 [facility] [address] [id number] [address] [place] [address] March, [facility] [address] [id number] [address] [place] [address] Feb, Other chronic pain G89.29 [facility] [address] [id number] [address] [place] [address] Feb, Anxiety F41.9 [facility] [address] [id number] [address] [place] [address] Feb, Other chronic pain G89.29 [facility] [employer] [facility] [address] [place] [id number] Feb, Neurogenic bladder N31.9 and Suprapubic catheter Z93.59 [facility] [address] [id number] [address] [place] [address] Jan, Anxiety F41.9 [facility] [address] [id number] [address] [place] [address] Dec, Anxiety F41.9 [facility] [address] [id number] [address] [place] [address] Dec, Other chronic pain G89.29 an d Anxiety F41.9 [facility] [address] [id number] [address] [place] [address] Dec, Via [employer] [address] [place] [id number] Dec, Neurogenic bladder N31.9 and Suprapubic catheter Z93.59 [facility] [address] [id number] [address] [place] [address] Nov, Other chronic pain G89.29 an d Anxiety F41.9 [facility] [address] [id number] [address] [place] [address] Nov, Via [employer] [address] [place] [id number] Nov, Suprapubic catheter Z93.59 [facility] [address] [id number] [address] [place] [address] Oct, Other chronic pain G89.29 an d Anxiety F41.9 [facility] [address] [id number] [address] [place] [address] Oct, [facility] [address] [id number] [address] [place] [address] Oct, Suprapubic catheter Z93.59 [facility] [address] [id number] [address] [place] [address] Oct, Via [employer] [address] [place] [id number] Oct, [facility] [address] [id number] [address] [place] [address] Oct, Anxiety F41.9 [facility] [address] [id number] [address] [place] [address] Oct, Anxiety F41.9 [facility] [employer] [address] [place] [id number] Oct, Other chronic pain G89.29 [facility] [address] [id number] [address] [place] [address] 14 Sep, 2018 Other chronic pain G89.29 Via [employer] [address] [place] [id number] Sep, Suprapubic catheter Z93.59 and Cervicalg ia M54.2 [facility] [address] [id number] [address] [place] [address] Sep, [facility] [address] [id number] [address] [place] [address] Sep, [facility] [address] [id number] [address] [place] [address] Sep, Via [employer] [facility] [address] [place] [id number] Aug, Cystitis N30.90 [facility] [address] [id number] [address] [place] [address] Aug, [facility] [address] [id number] [address] [place] [address] Aug, Other chronic pain G89.29 [facility] [address] [id number] [address] [place] [address] Aug, Via [employer] [address] [place] [id number] Aug, Encounter for suprapubic catheter care Z 43.5 [facility] [address] [id number] [address] [place] [address] Jul, Via [employer] [address] [place] [id number] Jul, [facility] [address] [id number] [address] [place] [address] Jul, Other chronic pain G89.29 [facility] [address] [id number] [address] [place] [address] Jul, [facility] [address] [id number] [address] [place] [address] Jul, [facility] [employer] [facility] [address] [place] [id number] Jun, Postmenopausal atrophic vaginitis N95.2 [place] [address] [id number] [address] [place] [address] Jun, Other chronic pain G89.29 [place] [address] [id number] [address] [place] [address] Jun, Via [facility] [address] [place] [id number] May, Anxiety F41.9 ; Type 2 diabetes mellitus without complication, without long-term current use of insulin E11.9 ; Hypertension I10 ; Low back pain M54.5 ; Paroxysmal atrial fibrillation I48.0 and 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 [place] [address] [id number] [address] [place] [address] May, Other chronic pain G89.29 [facility] [employer] [facility] [employer] [facility] [address] [place] [address] May, Low back pain M54.5 [place] [address] [id number] [address] [place] [address] May, [place] [address] [id number] [address] [place] [address] Apr, Other chronic pain G89.29 [place] [address] [id number] [address] [place] [address] Apr, [place] [address] [id number] [address] [place] [address] Apr, Via [facility] [address] [place] [id number] Apr, Closed compression fracture of L3 lumbar vertebra with routine healing, subsequent encounter S32.030D [facility] [address] [place] [address] Apr, Low back pain M54.5 [facility] [address] [place] [address] Apr, Coccydynia M53.3 [facility] [address] [id number] [address] [place] [address] March, [facility] [address] [id number] [address] [place] [address] March, Other chronic pain G89.29 [facility] [address] [id number] [address] [place] [address] March, [facility] [address] [id number] [address] [place] [address] March, [facility] [address] [id number] [address] [place] [address] Feb, [facility] [address] [id number] [address] [place] [address] Feb, Other chronic pain G89.29 Via [facility] [address] [place] [address] Feb, Other chronic pain G89.29 and Anxiety F4 1.9 [facility] [address] [id number] [address] [place] [address] Feb, [facility] [address] [id number] [address] [place] [address] Jan, [facility] [address] [id number] [address] [place] [address] Jan, [facility] [address] [id number] [address] [place] [address] Jan, [facility] [address] [id number] [address] [place] [address] Jan, [facility] [address] [id number] [address] [place] [address] Dec, Via [facility] [employer] [address] [place] [id number] Dec, Peripheral vascular disease I73.9 ; 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 ; Other chronic pain G89.29 ; Anxiety F41.9 ; Reactive depression F32.9 ; Insomnia G47.00 and Type 2 diabetes mellitus without complication, without long-term current use of insulin E11.9 [facility] ADRIENNE SANCHEZ [id number] [place] [address] Nov, [facility] [address] [id number] [place] [facility] [place] [id number] Nov, Anxiety F41.9 [facility] [address] [facility] [place] [id number] [address] [place] [address] Nov, [place] [address] [id number] [place] [facility] [place] [place] [id number] Nov, Anxiety F41.9 Via [facility] [facility] [employer] [address] [place] [address] Nov, Status post surgery Z98.890 ; Confused R 41.0 ; Anxiety F41.9 and Other chronic pain G89.29 [place] [address] [id number] [place] [id number] Nov, Other chronic pain G89.29 [place] [address] [facility] [place] [id number] [address] [place] [address] Oct, [place] [address] [id number] [place] [id number] Oct, Other chronic pain G89.29 [place] [address] [facility] [place] [id number] [address] [place] [address] Oct, Anxiety F41.9 [place] [address] [id number] [place] [address] Sep, Other chronic pain G89.29 [place] [address] [id number] [place] [address] Sep, [facility] [address] [place] [address] Aug, Dysuria R30.0 and Anxiety F41.9 [place] [address] [id number] [address] [place] [address] 16 Aug, 2017 [facility] [address] [id number] [place] [address] Aug, Other chronic pain G89.29 [facility] [address] [id number] [address] [place] [address] Jul, Other chronic pain G89.29 [facility] [address] [id number] [place] [id number] Jun, [facility] [address] [id number] [place] [id number] Jun, Other chronic pain G89.29 [facility] [address] [id number] [address] [place] [address] Jun, [facility] [address] [facility] [place] [id number] [address] [place] [address] May, Other chronic pain G89.29 [facility] [address] [id number] [address] [place] [address] Apr, Other chronic pain G89.29 [facility] [address] [place] [id number] Apr, Reactive depression F32.9 and Pharyngeal dysphagia R13.13 [facility] [address] [facility] [place] [id number] [address] [place] [address] Apr, Urinary tract infection with out hematuria, site unspecified N39.0 [facility] [address] [facility] [place] [id number] [address] [place] [address] March, Other chronic pain G89.29 [facility] [address] [id number] [address] [place] [address] Feb, Other chronic pain G89.29 [facility] [address] [id number] [address] [place] [address] Feb, [facility] [address] [id number] [place] [id number] Feb, [facility] [employer] [facility] [address] [place] [id number] Feb, Dysuria R30.0 and Ventral hernia without obstruction or gangrene K43.9 [facility] [address] [id number] [address] [place] [address] Jan, Other chronic pain G89.29 [facility] [address] [id number] [place] [id number] Dec, Other chronic pain G89.29 [facility] [address] [id number] [address] [place] [address] Nov, Other chronic pain G89.29 [facility] [employer] [facility] [address] [place] [id number] Nov, Lymphadenitis I88.9 [facility] [address] [id number] [address] [place] [address] Nov, Other chronic pain G89.29 [facility] [address] [id number] [address] [place] [address] Nov, [facility] [address] [id number] [place] [id number] Nov, Other chronic pain G89.29 [facility] [employer] [address] [place] [id number] Oct, Low back pain M54.5 ; Hypertension I10 a nd Type 2 diabetes mellitus without complication, without long-term current use of insulin E11.9 [facility] [address] [id number] [address] [place] [id number] Oct, [facility] [address] [id number] [address] [place] [id number] Oct, [facility] [address] [id number] [address] [place] [id number] Oct, [facility] [address] [id number] [address] [place] [id number] Oct, [facility] [address] [id number] [address] [place] [phone] Sep, [facility] [address] [id number] [address] [place] [id number] Sep, [facility] [address] [id number] [address] [place] [id number] Aug, Other chronic pain G89.29 [facility] [address] [id number] [address] [place] [phone] Jul, [facility] [address] [id number] [address] [place] [id number] Jul, [facility] [address] [id number] [address] [place] [id number] Jul, [facility] [address] [id number] [address] [place] [phone] Jun, [facility] [address] [id number] [address] [place] [id number] Jun, [facility] [address] [place] [id number] Jun, Low back pain M54.5 ; Other chronic pain G89.29 and Coronary artery disease I25.10 [facility] [address] [id number] [address] [place] [phone] Jun, [facility] [address] [id number] [address] [place] [address] [address] May, [facility] [address] [id number] [address] [place] [address] May, [facility] [address] [id number] [address] [place] [address] May, Other chronic pain G89.29 [facility] [address] [id number] [address] [place] [address] May, [facility] [address] [id number] [address] [place] [address] 28 Apr, 2016 [facility] [address] [id number] [address] [place] [address] 17 Apr, 2016 Acute cystitis without hemat uria N30.00 [facility] [address] [id number] [address] [place] [address] 16 Apr, 2016 Acute cystitis without hemat uria N30.00 ; Coronary artery disease I25.10 ; Low back pain M54.5 and Other chronic pain G89.29 [facility] [address] [id number] [address] [place] [address] 13 Apr, 2016 Other chronic pain G89.29 [facility] [address] [id number] [address] [place] [address] March, Other chronic pain G89.29 [facility] [address] [id number] [address] [place] [address] 18 Feb, 2016 [facility] [address] [id number] [address] [place] [address] 15 Feb, 2016 Arthritis M19.90 [facility] [address] [id number] [address] [place] [address] Feb, [facility] [address] [id number] [address] [place] [address] 30 Jan, 2016 [facility] [address] [id number] [address] [place] [address] Jan, [facility] [address] [id number] [address] [place] [address] Jan, Other chronic pain G89.29 [facility] [address] [id number] [address] [place] [address] Jan, Hypertension I10 ; Coronary artery disease I25.10 and Insomnia G47.00 [facility] [address] [id number] [address] [place] [address] Jan, [facility] [address] [id number] [address] [place] [address] Dec, Right hip pain M25.551 [facility] [address] [id number] [address] [place] [address] Dec, [facility] [address] [id number] [address] [place] [address] Dec, [facility] [address] [id number] [address] [place] [address] Dec, [facility] [address] [id number] [address] [place] [address] Dec, Other chronic pain G89.29 [facility] [address] [id number] [address] [place] [address] Dec, [facility] [address] [id number] [address] [place] [address] Nov, [facility] [address] [id number] [address] [place] [address] Nov, Other chronic pain G89.29 [facility] [address] [id number] [address] [place] [address] Nov, Right hip pain M25.551 and C oronary artery disease I25.10 [facility] [address] [id number] [address] [place] [address] Nov, Other chronic pain G89.29 [facility] [address] [id number] [address] [place] [address] Oct, [facility] [address] [id number] [address] [place] [address] Oct, [facility] [address] [id number] [address] [place] [address] Sep, [facility] [address] [id number] [address] [place] [address] Sep, [facility] [address] [id number] [address] [place] [address] Aug, [facility] [address] [id number] [address] [place] [address] Aug, Hypertension I10 ; Coronary artery disease I25.10 and Arthritis M19.90 [facility] [address] [id number] [address] [place] [address] Jun, [facility] [address] [id number] [address] [place] [address] Jun, Essential hypertension, jayson gn 401.1 ; Other chronic pain 338.29 and Chronic airway obstruction, not elsewhere classified 496 [facility] [address] [id number] [address] [place] [address] Jun, [facility] [address] [id number] [address] [place] [address] Jun, [facility] [address] [id number] [address] [place] [address] Jun, [facility] [address] [id number] [address] [place] [address] May, [facility] [address] [id number] [address] [place] [address] May, [facility] [address] [id number] [address] [place] [address] Apr, [facility] [address] [id number] [address] [place] [address] Apr, [facility] [address] [id number] [address] [place] [address] Apr, [facility] [address] [id number] [address] [place] [address] March, [facility] [address] [id number] [address] [place] [address] March, [facility] [address] [id number] [address] [place] [address] March, [facility] [address] [id number] [address] [place] [address], [place] [address] March, [facility] [address] [id number] [address] [place] [address], [place] [address] March, Sialadenitis 527.2 [facility] [address] [id number] [address] [place] [address], [place] [address] Feb, [facility] [address] [id number] [address] [place] [address], [place] [address] Feb, [facility] [address] [id number] [address] [place] [address], [place] [address] Feb, [facility] [address] [id number] [address] [place] [address], [place] [address] Feb, [facility] [address] [id number] [address] [place] [address] Feb, [facility] [address] [id number] [address] [place] [address], [place] [address] Jan, [facility] [address] [id number] [address] [place] [address], [place] [address] Jan, [facility] [address] [id number] [address] [place] [address], [place] [address] Jan, [facility] [address] [id number] [address] [place] [address], [place] [address] Jan, [facility] [address] [id number] [address] [place] [address] Jan, [facility] [address] [id number] [address] [place] [address] Jan, [facility] [address] [id number] [address] [place] [address], [place] [address] Dec, [facility] [address] [id number] [address] [place] [address] Dec, [facility] [address] [id number] [address] [place] [address], [place] [address] Dec, [facility] [address] [id number] [address] [place] [address], [place] [address] Dec, [facility] [address] [id number] [address] [place] [address], [place] [address] Dec, [facility] [address] [id number] [address] [place] [address], [place] [address] Dec, [facility] [address] [id number] [address] [place] [address], [place] [address] Nov, [facility] [address] [id number] [address] [place] [address], [place] [address] Nov, [facility] [address] [id number] [address] [place] [address], [place] [address] Nov, [facility] [address] [id number] [address] [place] [address], [place] [address] Nov, [facility] [address] [id number] [address] [place] [address], [place] [address] Nov, [facility] [address] [id number] [address] [place] [address], [place] [address] Nov, [facility] [address] [id number] [address] [place] [address], [place] [address] Nov, [facility] [address] [id number] [address] [place] [address], [place] [address] Nov, [facility] [address] [id number] [address] [place] [address], [place] [address] Nov, [facility] [address] [id number] [address] [place] [address], [place] [address] Nov, [facility] [address] [id number] [address] [place] [address], [place] [address] Nov, [facility] [address] [id number] [address] [place] [address], [place] [address] Nov, [facility] [address] [id number] [address] [place] [address], [place] [address] Nov, [facility] [address] [id number] [address] [place] [address], [place] [address] Nov, [facility] [address] [id number] [address] [place] [address], [place] [address] Oct, [facility] [address] [id number] [address] [place] [address], [place] [address] Oct, [facility] [address] [id number] [address] [place] [address], [place] [address] Oct, [facility] [address] [id number] [address] [place] [address], [place] [address] Oct, [facility] [address] [id number] [address] [place] [address], [place] [address] Oct, [facility] [address] [id number] [address] [place] [address], [place] [address] Oct, [facility] [address] [id number] [address] [place] [address], [place] [address] Oct, [facility] [address] [id number] [address] [place] [address], [place] [address] Oct, [facility] [address] [id number] [address] [place] [address], [place] [address] Oct, [facility] [address] [id number] [address] [place] [address], [place] [address] Sep, [facility] [address] [id number] [address] [place] [address], [place] [address] Sep, [facility] [address] [id number] [address] [place] [address], [place] [address] Sep, [facility] [address] [id number] [address] [place] [address], [place] [address] Sep, [facility] [address] [id number] [address] [place] [address], [place] [address] Sep, [facility] [address] [id number] [address] [place] [address], [place] [address] Sep, [facility] [address] [id number] [address] [place] [address], [place] [address] Sep, [facility] [address] [id number] [address] [place] [address], [place] [address] Sep, [facility] [address] [id number] [address] [place] [address], [place] [address] Sep, [facility] [address] [id number] [address] [place] [address], [place] [address] Sep, [facility] [address] [id number] [address] [place] [address], [place] [address] Sep, [facility] [address] [id number] [address] [place] [address], [place] [address] Sep, [facility] [address] [id number] [address] [place] [address], [place] [address] Aug, [facility] [address] [id number] [address] [place] [address], [place] [address] Aug, [facility] [address] [id number] [address] [place] [address], [place] [address] Aug, [facility] [address] [id number] [address] [place] [address], [place] [address] Aug, [facility] [address] [id number] [address] [place] [address], [place] [address] Aug, [facility] [address] [id number] [address] [place] [address], [place] [address] Aug, [facility] [address] [id number] [address] [place] [address], [place] [address] Aug, [facility] [address] [id number] [address] [place] [address], [place] [address] Aug, [facility] [address] [id number] [facility] [place] [address] 30 Jul, 2013 [facility] [address] [id number] [address] [place] [address], [place] [address] 30 Jul, 2013 [facility] [address] [id number] [address] [place] [address], [place] [address] 30 Jul, 2013 [facility] [address] [id number] [address] [place] [address], [place] [address] 30 Jul, 2013 [facility] [address] [id number] [address] [place] [address], [place] [address] 25 Jul, 2013 [facility] [address] [id number] [address] [place] [address], [place] [address] 25 Jul, 2013 [facility] [address] [id number] [address] [place] [address], [place] [address] 15 Jul, 2014 [facility] [address] [id number] [address] [place] [address], [place] [address] 15 Jul, 2014 [facility] [address] [id number] [address] [place] [address], [place] [address] 11 Jul, 2014 [facility] [address] [id number] [address] [place] [address], [place] [address] Jul, [facility] [address] [id number] [address] [place] [address], [place] [address] Jun, [facility] [address] [id number] [address] [place] [address], [place] [address] Jun, [facility] [address] [id number] [address] [place] [address], [place] [address] Jun, [facility] [address] [id number] [address] [place] [address], [place] [address] Jun, [facility] [address] [id number] [address] [place] [address], [place] [address] Jun, [facility] [address] [id number] [address] [place] [address], [place] [address] Jun, [facility] [address] [id number] [facility] [place] [address] Jun, [facility] [address] [id number] [facility] [place] [address] Jun, [facility] [address] [id number] [facility] [place] [address] Jun, [facility] [address] [id number] [facility] [place] [address] Jun, [facility] [address] [id number] [address] [place] [address], [place] [address] Jun, [facility] [address] [id number] [address] [place] [address], [place] [address] Jun, [facility] [address] [id number] [address] [place] [address], [place] [address] Jun, [facility] [address] [id number] [address] [place] [address], [place] [address] Jun, [facility] [address] [id number] [address] [place] [address], [place] [address] Jun, [facility] [address] [id number] [address] [place] [address], [place] [address] Jun, [facility] [address] [id number] [address] [place] [address], [place] [address] Jun, [facility] [address] [id number] [address] [place] [address], [place] [address] Jun, [facility] [address] [id number] [address] [place] [address], [place] [address] Jun, [facility] [address] [id number] [address] [place] [address], [place] [address] Jun, [facility] [address] [id number] [address] [place] [address], [place] [address] Jun, [facility] [address] [id number] [facility] [place] [address] Jun, [facility] [address] [id number] [facility] [place] [address] May, [facility] [address] [id number] [facility] [place] [address] May, [facility] [address] [id number] [address] [place] [address], [place] [address] May, [facility] [address] [id number] [address] [place] [address], [place] [address] May, [facility] [address] [id number] [address] [place] [address], [place] [address] May, [facility] [address] [id number] [address] [place] [address], [place] [address] May, [facility] [address] [id number] [address] [place] [address], [place] [address] May, [facility] [address] [id number] [address] [place] [address], [place] [address] May, [facility] [address] [id number] [address] [place] [address], [place] [address] May, [facility] [address] [id number] [address] [place] [address], [place] [address] May, [facility] [address] [id number] [address] [place] [address], [place] [address] May, [facility] [address] [id number] [address] [place] [address], [place] [address] May, [facility] [address] [id number] [address] [place] [address], [place] [address] May, [facility] [address] [id number] [address] [place] [address], [place] [address] Apr, [facility] [address] [id number] [address] [place] [address], [place] [address] Apr, [facility] [address] [id number] [facility] [place] [address] Apr, [facility] [address] [id number] [address] [place] [address], [place] [address] Apr, [facility] [address] [id number] [facility] [place] [address] Apr, [facility] [address] [id number] [address] [place] [address], [place] [address] Apr, [facility] [address] [id number] [address] [place] [address], [place] [address] Apr, [facility] [address] [id number] [address] [place] [address], [place] [address] Apr, [facility] [address] [id number] [address] [place] [address], [place] [address] Apr, [facility] [address] [id number] [address] [place] [address], [place] [address] March, [facility] [address] [id number] [address] [place] [address], [place] [address] March, [facility] [address] [id number] [address] [place] [address], [place] [address] March, [facility] [address] [id number] [address] [place] [address], [place] [address] March, [facility] [address] [id number] [address] [place] [address], [place] [address] March, [facility] [address] [id number] [address] [place] [address], [place] [address] March, [facility] [address] [id number] [address] [place] [address], [place] [address] March, [facility] [address] [id number] [address] [place] [address], [place] [address] March, [facility] [address] [id number] [address] [place] [address], [place] [address] March, [facility] [address] [id number] [address] [place] [address], [place] [address] March, [facility] [address] [id number] [address] [place] [address], [place] [address] March, [facility] [address] [id number] [address] [place] [address], [place] [address] March, [facility] [address] [id number] [address] [place] [address], [place] [address] March, [facility] [address] [id number] [address] [place] [address], [place] [address] March, [facility] [address] [id number] [address] [place] [address], [place] [address] March, [facility] [address] [id number] [address] [place] [address], [place] [address] March, [facility] [address] [id number] [address] [place] [address], [place] [address] March, [facility] [address] [id number] [address] [place] [address], [place] [address] March, [facility] [address] [id number] [address] [place] [address], [place] [address] March, [facility] [address] [id number] [address] [place] [address], [place] [address] March, [facility] [address] [id number] [address] [place] [address], [place] [address] Feb, [facility] [address] [id number] [address] [place] [address], [place] [address] Feb, [facility] [address] [id number] [address] [place] [address], [place] [address] Feb, [facility] [address] [id number] [address] [place] [address], [place] [address] Feb, [facility] [address] [id number] [facility] [place] [address] Feb, [facility] [address] [id number] [address] [place] [address], [place] [address] Feb, [facility] [address] [id number] [address] [place] [address], [place] [address] Feb, [facility] [address] [id number] [address] [place] [address], [place] [address] Feb, [facility] [address] [id number] [address] [place] [address], [place] [address] Jan, [facility] [address] [id number] [address] [place] [address], [place] [address] Jan, [facility] [address] [id number] [address] [place] [address], [place] [address] Jan, [facility] [address] [id number] [address] [place] [address], [place] [address] Jan, [facility] [address] [id number] [address] [place] [address], [place] [address] Jan, [facility] [address] [id number] [address] [place] [address], [place] [address] Jan, [facility] [address] [id number] [address] [place] [address], [place] [address] Jan, [facility] [address] [id number] [address] [place] [address], [place] [address] Jan, [facility] [address] [id number] [address] [place] [address], [place] [address] Jan, [facility] [address] [id number] [address] [place] [address], [place] [address] Jan, [facility] [address] [id number] [address] [place] [address], [place] [address] Dec, [facility] [address] [id number] [address] [place] [address], [place] [address] Dec, [facility] [address] [id number] [address] [place] [address], [place] [address] Dec, [facility] [address] [id number] [address] [place] [address], [place] [address] Dec, [facility] [address] [id number] [address] [place] [address], [place] [address] Dec, [facility] [address] [id number] [address] [place] [address], [place] [address] Dec, [facility] [address] [id number] [address] [place] [address], [place] [address] Dec, [facility] [address] [id number] [address] [place] [address], [place] [address] Dec, [facility] [address] [id number] [address] [place] [address], [place] [address] Nov, [facility] [address] [address] [id number] [address] [place] [address], [place] [address] Nov, [facility] [address] [id number] [address] [place] [address], [place] [address] Nov, [facility] [address] [id number] [address] [place] [address], [place] [address] Nov, [facility] [address] [id number] [address] [place] [address], [place] [address] Nov, [facility] [address] [id number] [address] [place] [address], [place] [address] Nov, [facility] [address] [id number] [address] [place] [address], [place] [address] Nov, [facility] [address] [id number] [address] [place] [address], [place] [address] Nov, [facility] [address] [id number] [address] [place] [address], [place] [address] Nov, [facility] [address] [id number] [address] [place] [address], [place] [address] Nov, [facility] [address] [id number] [address] [place] [address], [place] [address] Nov, [facility] [address] [id number] [address] [place] [address], [place] [address] Nov, [facility] [address] [id number] [address] [place] [address], [place] [address] Nov, [facility] [address] [id number] [address] [place] [address], [place] [address] Oct, [facility] [address] [id number] [address] [place] [address], [place] [address] Oct, [facility] [address] [id number] [address] [place] [address], [place] [address] Oct, [facility] [address] [id number] [address] [place] [address], [place] [address] Oct, [facility] [address] [id number] [address] [place] [address], [place] [address] Oct, [facility] [address] [id number] [address] [place] [address], [place] [address] Oct, [facility] [address] [id number] [address] [place] [address], [place] [address] Oct, [facility] [address] [id number] [address] [place] [address], [place] [address] Oct, [facility] [address] [id number] [address] [place] [address], [place] [address] Oct, [facility] [address] [id number] [address] [place] [address], [place] [address] Oct, [facility] [address] [id number] [address] [place] [address], [place] [address] Oct, [facility] [address] [id number] [address] [place] [address] Oct, [facility] [address] [id number] [address] [place] [address], [place] [address] Oct, [facility] [address] [id number] [address] [place] [address] Oct, [facility] [address] [id number] [address] [place] [address] Sep, [facility] [address] [id number] [address] [place] [address] Sep, [facility] [address] [id number] [address] [place] [address], [place] [address] Sep, [facility] [address] [id number] [address] [place] [address] Sep, [facility] [address] [id number] [address] [place] [address] Sep, [facility] [address] [id number] [address] [place] [address] Sep, [facility] [address] [id number] [address] [place] [address] Sep, [facility] [address] [id number] [address] [place] [address] Sep, [facility] [address] [id number] [address] [place] [address] Sep, [facility] [address] [id number] [address] [place] [address] Sep, [facility] [address] [id number] [address] [place] [address] Aug, [facility] [address] [id number] [address] [place] [address] Aug, [facility] [address] [id number] [address] [place] [address] Aug, [facility] [address] [id number] [address] [place] [address], [place] [address] 24 Aug, 2012 [facility] [address] [id number] [address] [place] [address], [place] [address] 23 Aug, 2012 [facility] [address] [id number] [address] [place] [address], [place] [address] 23 Aug, 2012 [facility] [address] [id number] [address] [place] [address], [place] [address] 23 Aug, 2012 [facility] [address] [id number] [address] [place] [address], [place] [address] 23 Aug, 2012 [facility] [address] [id number] [address] [place] [address], [place] [address] Aug, 2012 [facility] [address] [id number] [address] [place] [address], [place] [address] 22 Aug, 2012 [facility] [address] [id number] [address] [place] [address], [place] [address] 18 Aug, 2012 [facility] [address] [id number] [address] [place] [address], [place] [address] 18 Aug, 2013 [facility] [address] [id number] [address] [place] [address], [place] [address] 18 Aug, 2012 [facility] [address] [id number] [address] [place] [address], [place] [address] 18 Aug, 2013 [facility] [address] [id number] [address] [place] [address], [place] [address] 17 Aug, 2012 [facility] [address] [id number] [address] [place] [address], [place] [address] 14 Aug, 2013 [facility] [address] [id number] [address] [place] [address], [place] [address] 14 Aug, 2013 [facility] [address] [id number] [address] [place] [address], [place] [address] Aug, [facility] [address] [id number] [address] [place] [address], [place] [address] 20 Jul, 2013 [facility] [address] [id number] [address] [place] [address], [place] [address] 19 Jul, 2013 [facility] [address] [id number] [address] [place] [address], [place] [address] 18 Jul, 2013 [facility] [address] [id number] [address] [place] [address], [place] [address] 11 Jul, 2013 [facility] [address] [id number] [address] [place] [address], [place] [address] 11 Jul, 2013 [facility] [address] [id number] [address] [place] [address], [place] [address] Jun, [facility] [address] [id number] [address] [place] [address], [place] [address] Jun, [facility] [address] [id number] [address] [place] [address], [place] [address] Jun, [facility] [address] [id number] [address] [place] [address], [place] [address] 15 Jun, 2013 [facility] [address] [id number] [address] [place] [address], [place] [address] Jun, [facility] [address] [id number] [address] [place] [address], [place] [address] Jun, [facility] [address] [id number] [address] [place] [address], [place] [address] Jun, [facility] [address] [id number] [address] [place] [address], [place] [address] Jun, [facility] [address] [id number] [address] [place] [address], [place] [address] Jun, [facility] [address] [id number] [address] [place] [address], [place] [address] Jun, [facility] [address] [id number] [address] [place] [address], [place] [address] May, [facility] [address] [id number] [address] [place] [address], [place] [address] May, [facility] [address] [id number] [address] [place] [address], [place] [address] May, [facility] [address] [id number] [address] [place] [address], [place] [address] May, [facility] [address] [id number] [address] [place] [address], [place] [address] May, [facility] [address] [id number] [address] [place] [address], [place] [address] May, [facility] [address] [id number] [address] [place] [address], [place] [address] May, [facility] [address] [id number] [address] [place] [address], [place] [address] May, [facility] [address] [id number] [address] [place] [address], [place] [address] May, [facility] [address] [id number] [address] [place] [address], [place] [address] Apr, [facility] [address] [id number] [address] [place] [address], [place] [address] Apr, [facility] [address] [id number] [address] [place] [address], [place] [address] Apr, [facility] [address] [id number] [address] [place] [address], [place] [address] Apr, [facility] [address] [id number] [address] [place] [address], [place] [address] Apr, [facility] [address] [id number] [address] [place] [address], [place] [address] Apr, [facility] [address] [id number] [address] [place] [address], [place] [address] Apr, [facility] [address] [id number] [address] [place] [address], [place] [address] March, [facility] [address] [id number] [facility] [place] [address] Feb, [facility] [address] [id number] [address] [place] [address], [place] [address] Feb, [facility] [address] [id number] [address] [place] [address], [place] [address] Feb, [facility] [address] [id number] [address] [place] [address], [place] [address] 28 Jan, 2013 [facility] [address] [id number] [address] [place] [address], [place] [address] Jan, [facility] [address] [id number] [address] [place] [address], [place] [address] [address], [address] [facility] [address] [id number] [address] [place] [address], [place] [address] 14 Jan, 2013 [facility] [address] [id number] [address] [place] [address], [place] [address] 12 Jan, 2013 [facility] [address] [id number] [address] [place] [address], [place] [address] 08 Jan, 2013 [facility] [address] [id number] [address] [place] [address], [place] [address] 07 Jan, 2013 [facility] [address] [id number] [address] [place] [address], [place] [address] 04 Jan, 2013 [facility] [address] [id number] [address] [place] [address], [place] [address] 28 Dec, 2012 [facility] [address] [id number] [address] [place] [address], [place] [address] Dec, [facility] [address] [id number] [address] [place] [address], [place] [address] 13 Dec, 2012 [facility] [address] [id number] [address] [place] [address], [place] [address] Dec, [facility] [address] [id number] [address] [place] [address], [place] [address] 07 Dec, 2012 [facility] [address] [id number] [address] [place] [address], [place] [address] 06 Dec, 2012 [facility] [address] [id number] [address] [place] [address], [place] [address] [address], [address] [facility] [address] [id number] [address] [place] [address], [place] [address] Nov, [facility] [address] [id number] [address] [place] [address], [place] [address] 24 Nov, 2012 [facility] [address] [id number] [address] [place] [address], [place] [address] 18 Nov, 2012 [facility] [address] [id number] [address] [place] [address], [place] [address] [address], [address] [facility] [address] [id number] [address] [place] [address], [place] [address] Nov, [facility] [address] [id number] [address] [place] [address], [place] [address] Nov, [facility] [address] [id number] [address] [place] [address], [place] [address] Nov, [facility] [address] [id number] [address] [place] [address], [place] [address] Oct, [facility] [address] [id number] [address] [place] [address], [place] [address] [address], [address] [facility] [address] [id number] [address] [place] [address], [place] [address] Oct, [facility] [address] [id number] [address] [place] [address], [place] [address] Oct, [facility] [address] [id number] [address] [place] [address], [place] [address] Oct, [facility] [address] [id number] [address] [place] [address], [place] [address] 17 Oct, 2012 [facility] [address] [id number] [address] [place] [address], [place] [address] 07 Oct, 2012 [facility] [address] [id number] [address] [place] [address], [place] [address] Oct, [facility] [address] [id number] [address] [place] [address], [place] [address] Oct, [facility] [address] [id number] [address] [place] [address], [place] [address] Oct, [facility] [address] [id number] [address] [place] [address], [place] [address] Oct, [facility] [address] [id number] [address] [place] [address], [place] [address] Oct, [facility] [address] [id number] [address] [place] [address], [place] [address] Sep, [facility] [address] [id number] [address] [place] [address], [place] [address] Sep, [facility] [address] [id number] [address] [place] [address], [place] [address] Sep, [facility] [address] [id number] [address] [place] [address], [place] [address] Sep, [facility] [address] [id number] [address] [place] [address], [place] [address] Sep, [facility] [address] [id number] [address] [place] [address], [place] [address] Sep, [facility] [address] [id number] [address] [place] [address], [place] [address] Sep, [facility] [address] [id number] [address] [place] [address], [place] [address] Sep, [facility] [address] [id number] [address] [place] [address], [place] [address] Sep, [facility] [address] [id number] [address] [place] [address], [place] [address] Sep, [facility] [address] [id number] [address] [place] [address], [place] [address] Sep, [facility] [address] [id number] [address] [place] [address], [place] [address] Aug, [facility] [address] [id number] [address] [place] [address], [place] [address] Aug, [facility] [address] [id number] [address] [place] [address], [place] [address] Aug, [facility] [address] [id number] [address] [place] [address], [place] [address] Aug, [facility] [address] [id number] [address] [place] [address], [place] [address] Aug, [facility] [address] [id number] [address] [place] [address], [place] [address] Aug, [facility] [address] [id number] [address] [place] [address] Aug, [facility] [address] [id number] [address] [place] [address], [place] [address] Aug, [facility] [address] [id number] [address] [place] [address] Aug, [facility] [address] [id number] [address] [place] [address] Aug, [facility] [address] [id number] [address] [place] [address] 22 Jul, 2012 [facility] [address] [id number] [address] [place] [address], [place] [address] 20 Jul, 2011 [facility] [address] [id number] [address] [place] [address] 10 Jul, 2011 [facility] [address] [id number] [address] [place] [address] 06 Jul, 2012 [facility] [address] [id number] [address] [place] [address], [place] [address] Jun, [facility] [address] [id number] [address] [place] [address], [place] [address] Jun, [facility] [address] [id number] [address] [place] [address], [place] [address] Jun, [facility] [address] [id number] [address] [place] [address], [place] [address] Jun, [facility] [address] [id number] [address] [place] [address], [place] [address] Jun, [facility] [address] [id number] [address] [place] [address], [place] [address] Jun, [facility] [address] [id number] [address] [place] [address], [place] [address] Jun, [facility] [address] [id number] [address] [place] [address], [place] [address] May, [facility] [address] [id number] [address] [place] [address], [place] [address] May, [facility] [address] [id number] [address] [place] [address], [place] [address] May, [facility] [address] [id number] [address] [place] [address], [place] [address] May, [facility] [address] [id number] [address] [place] [address], [place] [address] May, [facility] [address] [id number] [address] [place] [address], [place] [address] Apr, [facility] [address] [id number] [address] [place] [address], [place] [address] Apr, [facility] [address] [id number] [address] [place] [address], [place] [address] Apr, [facility] [address] [id number] [address] [place] [address], [place] [address] Apr, [facility] [address] [id number] [address] [place] [address], [place] [address] Apr, [facility] [address] [id number] [address] [place] [address], [place] [address] March, [facility] [address] [id number] [address] [place] [address], [place] [address] March, [facility] [address] [id number] [address] [place] [address], [place] [address] March, [facility] [address] [id number] [address] [place] [address], [place] [address] March, [facility] [address] [id number] [address] [place] [address], [place] [address] March, [facility] [address] [id number] [address] [place] [address], [place] [address] March, [facility] [address] [id number] [address] [place] [address], [place] [address] March, [facility] [address] [id number] [address] [place] [address], [place] [address] March, [facility] [address] [id number] [address] [place] [address], [place] [address] March, [facility] [address] [id number] [address] [place] [address], [place] [address] March, [facility] [address] [id number] [address] [place] [address], [place] [address] Feb, [facility] [address] [id number] [address] [place] [address], [place] [address] Feb, [facility] [address] [id number] [address] [place] [address], [place] [address] Feb, [facility] [address] [id number] [address] [place] [address], [place] [address] Feb, [facility] [address] [id number] [address] [place] [address], [place] [address] Feb, [facility] [address] [id number] [address] [place] [address], [place] [address] Feb, [facility] [address] [id number] [address] [place] [address], [place] [address] Feb, [facility] [address] [id number] [address] [place] [address], [place] [address] Feb, [facility] [address] [id number] [address] [place] [address], [place] [address] Feb, [facility] [address] [id number] [address] [place] [address], [place] [address] Jan, [facility] [address] [id number] [address] [place] [address], [place] [address] Jan, [facility] [address] [id number] [address] [place] [address], [place] [address] Jan, [facility] [address] [id number] [address] [place] [address], [place] [address] Jan, [facility] [address] [id number] [address] [place] [address], [place] [address] Dec, [facility] [address] [id number] [address] [place] [address], [place] [address] Dec, [facility] [address] [id number] [address] [place] [address], [place] [address] Nov, [facility] [address] [id number] [address] [place] [address], [place] [address] Nov, [facility] [address] [id number] [address] [place] [address], [place] [address] Nov, [facility] [address] [id number] [address] [place] [address], [place] [address] 16 Nov, 2011 [facility] [address] [id number] [address] [place] [address], [place] [address] Nov, [facility] [address] [id number] [address] [place] [address] Oct, [facility] [address] [id number] [address] [place] [address] Oct, [facility] [address] [id number] [address] [place] [address] Oct, [facility] [address] [id number] [address] [place] [address] Oct, [facility] [address] [id number] [address] [place] [address] Oct, [facility] [address] [id number] [address] [place] [id number] Oct, [facility] [address] [id number] [address] [place] [address] Oct, [facility] [address] [id number] [address] [place] [id number] Oct, [facility] [address] [id number] [address] [place] [address] Sep, IMMUNIZATIONS No Known Immunizations SOCIAL HISTORY Never Assessed REASON FOR VISIT PLAN OF CARE VITAL SIGNS Height 62 in 2013-07-02 Weight 170.15 lbs 2013-07-02 Heart Rate 79 bpm 2013-07-02 Respiratory Rate 24 2013-07-02 Blood pressure systolic 152 mmHg 2013-07-02 Blood pressure diastolic 82 mmHg 2013-07-02 MEDICATIONS Unknown Medications RESULTS No Results PROCEDURES Procedure Date Ordered Result Body Site THER/PROPH/DIAG INJ, SC/IM Jul 02, 2013 BLOOD PRESSURE, MEASURED Jul 02, 2013 INJ METHYLPRDNISLN SODIM TO 125 MG Jul 02, 2013 MEASURE BLOOD OXYGEN LEVEL Jul 02, 2013 INSTRUCTIONS MEDICATIONS ADMINISTERED No Known Medications [...] History No Surgical history information Hospitalization History [facility]- Urosepsis, ab d pain and fever, discharged 11/27/2017 11/26/2017 Hospitalization History [facility]- Went Unrepsonsive, Hit head 2017 Hospitalization History [facility]- Back Pain 8
--- OUTSIDE RECORDS SUMMARY | 2020-06-18 15:45 | XMS REPORT ---
Author Author Sanjuanita MARQUEZ [facility] Address [address] [place] [address] Care Team Providers Care Wireless Engineer Name Role Phone SHAHNAZ MARQUEZ Unavailable PROBLEMS Type Condition ICD9-CM Code DTD60-QZ Code Onset Dates Condition S tatus SNOMED Code Problem Hypertension I10 Active 1762711 3 Problem Hyperlipidemia E78.5 Active 55764 004 Problem Coronary artery disease I25.10 Active 08679058 Problem Low back pain M54.5 Active 886311 009 Problem Other chronic pain G89.29 Active 8 6915834 Problem Ventral hernia without obstruction or gangrene K43 .9 Active 819666505 Problem Type 2 diabetes mellitus wit hout complication, without long-term current use of insulin E11.9 Active 811114026 Problem Anxiety F41.9 Active 50734596 Problem Peripheral vascular disease I73.9 Ac tive 826887469 Problem Insomnia G47.00 Active 146395905 Problem Microcytic anemia D50.9 Active 23 9996853 Problem Pharyngeal dysphagia R13.13 Active 48265125761856 Problem Other iron deficiency anemia D50.8 A ctive 72477430 Problem Reactive depression F32.9 Active 70890907 Problem Paroxysmal atrial fibrillation I48.0 Active 525521666 Problem Postmenopausal atrophic vaginitis N95.2 Active 36004146 Problem Encounter for suprapubic catheter care Z43.5 Active 156448127 Problem Neurogenic bladder N31.9 Active 3 [id number] ALLERGIES No Information ENCOUNTERS Encounter Location Date Diagnosis [facility] [address] [facility] [id number] [address] [place] [address] March, [facility] [address] [facility] [id number] [address] [place] [phone] 13 Mar, 2020 Anxiety F41.9 and Strain of right shoulder, subsequent encounter S46.911D [facility] [address] [id number] [address] [place] [address] Feb, Anxiety F41.9 and Strain of right shoulder, subsequent encounter S46.911D [facility] [address] [id number] [address] [place], [place] [id number] Jan, Anxiety F41.9 and Strain of right shoulder, subsequent encounter S46.911D [facility] [address] [id number] [address] [place] [address] Jan, [facility] [address] [place] [id number] Jan, Neurogenic bladder N31.9 [facility] [address] [id number] [address] [place] [address] Dec, 2019 [facility] [address] [id number] [address] [place] [address] Dec, 2019 [facility] [address] [id number] [address] [place], [place] [id number] Dec, Anxiety F41.9 and Strain of right shoulder, subsequent encounter S46.911D [facility] [address] [id number] [address] [place] [phone] 10 Dec, 2019 Other iron deficiency anemia D50.8 [facility] [address] [id number] [address] [place] [id number] 04 Dec, 2019 [facility] [address] [place] [id number] Dec, Encounter for suprapubic catheter care Z 43.5 and Microcytic anemia D50.9 [facility] [address] [id number] [address] [place] [address] Dec, [facility] [address] [id number] [address] [place], [place] [id number] Nov, Anxiety F41.9 and Strain of right shoulder, subsequent encounter S46.911D [facility] [address] [id number] [address] [place] [address] Nov, Hypertension I10 [facility] [address] [place] [id number] Nov, Pneumonia of both lungs due to infectiou s organism, unspecified part of lung J18.9 and Suprapubic catheter Z93.59 [facility] [address] [id number] [address] [place] [address] Nov, Hypertension I10 and Reactiv e depression F32.9 [facility] [address] [id number] [address] [place] [address] Oct, Strain of right shoulder, scherer bsequent encounter S46.911D and Anxiety F41.9 [facility] [address] [id number] [address] [place] [address] Oct, Via [facility] [address] [place] [id number] Oct, Suprapubic catheter Z93.59 and Candidias is, intertriginous B37.2 [facility] [address] [id number] [address] [place] [address] Oct, Suprapubic catheter Z93.59 [facility] [address] [id number] [address] [place] [address] Oct, Anxiety F41.9 and Strain of right shoulder, subsequent encounter S46.911D [facility] [address] [id number] [address] [place] [phone] Sep, [facility] [address] [id number] [address] [place] [address] Sep, [facility] [address] [id number] [address] [place] [address] Sep, [facility] [address] [place] [id number] Sep, Suprapubic catheter Z93.59 [facility] [address] [id number] [address] [place] [address] Sep, Anxiety F41.9 and Strain of right shoulder, subsequent encounter S46.911D [facility] [address] [id number] [address] [place] [address] Aug, [facility] [address] [id number] [address] [place] [address] Aug, [facility] [address] [id number] [address] [place] [address] Aug, Anxiety F41.9 and Strain of right shoulder, subsequent encounter S46.911D [facility] [address] [place] [id number] Aug, Suprapubic catheter Z93.59 [facility] [address] [id number] [address] [place] [address] Jul, Strain of right shoulder, scherer bsequent encounter S46.911D and Anxiety F41.9 [facility] [address] [id number] [address] [place] [address] Jul, Anxiety F41.9 [facility] [address] [id number] [address] [place] [address] Jun, [facility] [address] [id number] [address] [place] [address] Jun, [facility] [address] [id number] [address] [place] [address] Jun, [facility] [address] [id number] [address] [place] [address] Jun, Strain of right shoulder, scherer bsequent encounter S46.911D [facility] [address] [id number] [address] [place] [address] Jun, Strain of right shoulder, scherer bsequent encounter S46.911D [facility] [address] [id number] [address] [place] [address] Jun, Anxiety F41.9 Via [facility] [address] [place] [id number] Jun, Neurogenic bladder N31.9 and Anxiety F41 .9 [facility] [address] [place] [id number] May, Anxiety F41.9 [facility] [address] [id number] [address] [place] [address] May, Dysuria R30.0 [facility] [address] [id number] [address] [place] [address] May, Strain of right shoulder, scherer bsequent encounter S46.911D and Anxiety F41.9 [facility] [address] [id number] [address] [place] [address] Apr, Via [facility] [address] [place] [id number] Apr, Strain of right shoulder, subsequent enc ounter S46.911D [facility] [address] [id number] [address] [place] [address] Apr, Strain of right shoulder, scherer bsequent encounter S46.911D and Anxiety F41.9 Via [facility] [address] [place] [id number] Apr, Type 2 diabetes mellitus without complic ation, without long-term current use of insulin E11.9 and Neurogenic bladder N31.9 [facility] [address] [place] [id number] Apr, Strain of right shoulder, subsequent enc ounter S46.911D ; History of GI bleed Z87.19 ; Neurogenic bladder N31.9 and Reactive depression F32.9 [facility] [address] [id number] [address] [place] [address] Apr, Acute pain of left shoulder M25.512 [facility] [address] [id number] [address] [place] [id number] 07 Apr, 2019 [place] [place] [address] [id number] [address] [place] [address] Apr, Anxiety F41.9 and 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 [facility] [address] [place] [id number] March, Gastrointestinal hemorrhage associated w ith acute gastritis K29.01 [facility] [address] [id number] [address] [place] [address] March, Via [facility] [address] [place] [id number] March, Bronchitis J40 [facility] [address] [id number] [address] [place] [address] March, Cough R05 [facility] [address] [id number] [address] [place] [address] March, Other chronic pain G89.29 [facility] [address] [id number] [address] [place] [address] March, Anxiety F41.9 [facility] [address] [id number] [address] [place] [address] March, [facility] [address] [id number] [address] [place] [address] Feb, Other chronic pain G89.29 [facility] [address] [id number] [address] [place] [address] Feb, Anxiety F41.9 [facility] [address] [id number] [address] [place] [address] Feb, Other chronic pain G89.29 [facility] [address] [place] [id number] Feb, Neurogenic bladder N31.9 and Suprapubic catheter Z93.59 [facility] [address] [id number] [address] [place] [address] Jan, Anxiety F41.9 [facility] [address] [id number] [address] [place] [address] Dec, Anxiety F41.9 [facility] [address] [id number] [address] [place] [address] Dec, Other chronic pain G89.29 an d Anxiety F41.9 [facility] [address] [id number] [address] [place] [address] 15 Dec, 2018 Via [facility] [address] [place] [id number] Dec, Neurogenic bladder N31.9 and Suprapubic catheter Z93.59 [facility] [address] [id number] [address] [place] [address] Nov, Other chronic pain G89.29 an d Anxiety F41.9 [facility] [address] [id number] [address] [place] [address] Nov, Via [facility] [address] [place] [id number] Nov, Suprapubic catheter Z93.59 [facility] [address] [id number] [address] [place] [address] Oct, Other chronic pain G89.29 an d Anxiety F41.9 [facility] [address] [id number] [address] [place] [phone] Oct, [facility] [address] [id number] [address] [place] [address] Oct, Suprapubic catheter Z93.59 [facility] [address] [id number] [address] [place] [address] Oct, Via [facility] [address] [place] [id number] Oct, [facility] [address] [id number] [address] [place] [address] Oct, Anxiety F41.9 [facility] [address] [id number] [address] [place] [address] Oct, Anxiety F41.9 [facility] [address] [place] [id number] Oct, Other chronic pain G89.29 [facility] [address] [id number] [address] [place] [address] 14 Sep, 2018 Other chronic pain G89.29 [facility] [address] [place] [id number] Sep, Suprapubic catheter Z93.59 and Cervicalg ia M54.2 [facility] [address] [id number] [address] [place] [address] Sep, [facility] [address] [id number] [address] [place] [address] Sep, [facility] [address] [id number] [address] [place] [address] Sep, Via [facility] [address] [place] [id number] Aug, Cystitis N30.90 [facility] [address] [id number] [address] [place] [address] Aug, [facility] [address] [id number] [address] [place] [address] Aug, Other chronic pain G89.29 [facility] [address] [id number] [address] [place] [address] Aug, Via [facility] [address] [place] [id number] Aug, Encounter for suprapubic catheter care Z 43.5 [facility] [address] [id number] [address] [place] [address] Jul, Via [facility] [address] [place] [id number] Jul, [facility] [address] [id number] [address] [place] [address] Jul, Other chronic pain G89.29 [facility] [address] [id number] [address] [place] [address] Jul, [facility] [address] [id number] [address] [place] [address] Jul, Via [facility] [address] [place] [id number] Jun, Postmenopausal atrophic vaginitis N95.2 [facility] [address] [id number] [address] [place] [address] Jun, Other chronic pain G89.29 [facility] [address] [id number] [address] [place] [address] Jun, [facility] [address] [place] [id number] May, Anxiety F41.9 ; Type 2 diabetes mellitus without complication, without long-term current use of insulin E11.9 ; Hypertension I10 ; Low back pain M54.5 ; Paroxysmal atrial fibrillation I48.0 and 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 [facility] [place] [address] [id number] [address] [place] [address] May, Other chronic pain G89.29 [facility] [address] [place] [id number] May, Low back pain M54.5 [facility] [address] [id number] [address] [place] [address] May, [facility] [address] [id number] [address] [place] [address] Apr, Other chronic pain G89.29 [place] [address] [id number] [address] [place] [address] Apr, [place] [place] [address] [id number] [address] [place] [phone] Apr, [facility] [address] [place] [id number] Apr, Closed compression fracture of L3 lumbar vertebra with routine healing, subsequent encounter S32.030D [facility] [address] [place] [id number] Apr, Low back pain M54.5 [facility] [address] [place] [id number] Apr, Coccydynia M53.3 [facility] [address] [id number] [address] [place] [address] March, [facility] [address] [id number] [address] [place] [address] March, Other chronic pain G89.29 [facility] [address] [id number] [address] [place] [address] March, [facility] [address] [id number] [address] [place] [address] March, [facility] [address] [id number] [address] [place] [address] Feb, [facility] [address] [id number] [address] [place] [address] Feb, Other chronic pain G89.29 [facility] [address] [place] [id number] Feb, Other chronic pain G89.29 and Anxiety F4 1.9 [facility] [address] [id number] [address] [place] [address] Feb, [facility] [address] [id number] [address] [place] [address] Jan, [facility] [address] [id number] [address] [place] [address] Jan, [facility] [address] [id number] [address] [place] [address] Jan, [facility] [address] [id number] [address] [place] [address] Jan, [facility] [address] [id number] [address] [place] [address] Dec, [facility] [address] [place] [id number] Dec, Peripheral vascular disease I73.9 ; 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 ADRIENNE SANCHEZ [id number] [place] [address] Nov, [facility] [address] [id number] [place] [id number] Nov, Anxiety F41.9 [facility] [address] [id number] [address] [place] [address] Nov, [facility] [address] [id number] [place] [id number] Nov, Anxiety F41.9 [facility] [address] [place] [id number] Nov, Status post surgery Z98.890 ; Confused R 41.0 ; Anxiety F41.9 and Other chronic pain G89.29 [facility] [address] [id number] [place] [id number] Nov, Other chronic pain G89.29 [facility] [address] [facility] [id number] [address] [place] [address] Oct, [facility] [address] [id number] [place] [id number] Oct, Other chronic pain G89.29 [facility] [address] [facility] [id number] [address] [place] [address] Oct, Anxiety F41.9 [facility] [address] [id number] [place] [id number] Sep, Other chronic pain G89.29 [facility] [address] [id number] [place] [id number] Sep, [facility] [address] [place] [id number] Aug, Dysuria R30.0 and Anxiety F41.9 [facility] [address] [id number] [address] [place] [address] Aug, [facility] [address] [id number] [id number] Aug, Other chronic pain G89.29 [facility] [address] [facility] [id number] [address] [place] [address] Jul, Other chronic pain G89.29 [facility] [address] [id number] [id number] Jun, [facility] [address] [id number] [id number] Jun, Other chronic pain G89.29 [facility] [address] [facility] [id number] [address] [place] [address] Jun, [facility] [address] [facility] [id number] [address] [place] [address] May, Other chronic pain G89.29 [facility] [address] [facility] [id number] [address] [place] [address] Apr, Other chronic pain G89.29 [facility] [address] [place] [id number] Apr, Reactive depression F32.9 and Pharyngeal dysphagia R13.13 [facility] [address] [facility] [id number] [address] [place] [address] Apr, Urinary tract infection with out hematuria, site unspecified N39.0 [facility] [address] [facility] [id number] [address] [place] [address] March, Other chronic pain G89.29 [facility] [address] [facility] [id number] [address] [place] [address] Feb, Other chronic pain G89.29 [facility] [address] [facility] [id number] [address] [place] [address] Feb, [facility] [address] [id number] [facility] [facility] [place] [id number] Feb, [facility] [address] [place] [id number] Feb, Dysuria R30.0 and Ventral hernia without obstruction or gangrene K43.9 [facility] [address] [id number] [address] [place] [address] Jan, Other chronic pain G89.29 [facility] [address] [id number] [facility] [place] [place] [id number] Dec, Other chronic pain G89.29 [facility] [address] [id number] [address] [place] [address] Nov, Other chronic pain G89.29 [facility] [address] [place] [id number] Nov, Lymphadenitis I88.9 [facility] [address] [id number] [address] [place] [address] Nov, Other chronic pain G89.29 [facility] [address] [id number] [address] [place] [address] Nov, [facility] [address] [id number] [facility] [facility] [place] [id number] Nov, Other chronic pain G89.29 [facility] [address] [place] [id number] Oct, Low back pain M54.5 ; Hypertension I10 a nd Type 2 diabetes mellitus without complication, without long-term current use of insulin E11.9 [facility] [address] [id number] [address] [place] [address] Oct, [facility] [address] [id number] [address] [place] [address] Oct, [facility] [address] [id number] [address] [place] [address] Oct, [facility] [address] [id number] [address] [place] [address] Oct, [facility] [address] [id number] [address] [place] [id number] Sep, [facility] [address] [id number] [address] [place] [address] Sep, [facility] [address] [id number] [address] [place] [id number] Aug, Other chronic pain G89.29 [facility] [address] [id number] [address] [place] [address], [place] [phone] Jul, [facility] [address] [id number] [address] [place] [phone] Jul, [facility] [address] [id number] [address] [place] [phone] Jul, [facility] [address] [id number] [address] [place] [phone] Jun, [facility] [address] [id number] [address] [place] [phone] Jun, [facility] [address] [place] [id number] Jun, Low back pain M54.5 ; Other chronic pain G89.29 and Coronary artery disease I25.10 [facility] [address] [id number] [address] [place] [phone] Jun, [facility] [address] [id number] [address] [place] [phone] May, [facility] [address] [id number] [address] [place] [phone] May, [facility] [address] [id number] [address] [place] [id number] May, Other chronic pain G89.29 [facility] [address] [id number] [address] [place] [phone] May, [facility] [address] [id number] [address] [place] [phone] Apr, [facility] [address] [id number] [address] [place] [id number] 17 Apr, 2016 Acute cystitis without hemat uria N30.00 [facility] [address] [id number] [address] [place] [phone] 16 Apr, 2016 Acute cystitis without hemat uria N30.00 ; Coronary artery disease I25.10 ; Low back pain M54.5 and Other chronic pain G89.29 [facility] [address] [id number] [address] [place] [address] Apr, Other chronic pain G89.29 [facility] [address] [id number] [address] [place] [address] March, Other chronic pain G89.29 [facility] [address] [id number] [address] [place] [address] 18 Feb, 2016 [facility] [address] [id number] [address] [place] [address] 15 Feb, 2016 Arthritis M19.90 [facility] [address] [id number] [address] [place] [address] Feb, [facility] [address] [id number] [address] [place] [address] 30 Jan, 2016 [facility] [address] [id number] [address] [place] [address] Jan, [facility] [address] [id number] [address] [place] [address] 28 Jan, 2016 Other chronic pain G89.29 [facility] [address] [id number] [address] [place] [address] 17 Jan, 2016 Hypertension I10 ; Coronary artery disease I25.10 and Insomnia G47.00 [facility] [address] [id number] [address] [place] [address] Jan, [facility] [address] [id number] [address] [place] [address] Dec, Right hip pain M25.551 [facility] [address] [id number] [address] [place] [address] Dec, [facility] [address] [id number] [address] [place] [address] Dec, [facility] [address] [id number] [address] [place] [address] Dec, [facility] [address] [id number] [address] [place] [address] Dec, Other chronic pain G89.29 [facility] [address] [id number] [address] [place] [address] Dec, [facility] [address] [id number] [address] [place] [address] Nov, [facility] [address] [id number] [address] [place] [address] Nov, Other chronic pain G89.29 [facility] [address] [id number] [address] [place] [address] Nov, Right hip pain M25.551 and C oronary artery disease I25.10 [facility] [address] [id number] [address] [place] [address] Nov, Other chronic pain G89.29 [facility] [address] [id number] [address] [place] [address] Oct, [facility] [address] [id number] [address] [place] [address] Oct, [facility] [address] [id number] [address] [place] [address] Sep, [facility] [address] [id number] [address] [place] [address] Sep, [facility] [address] [id number] [address] [place] [address] Aug, [facility] [address] [id number] [address] [place] [address] Aug, Hypertension I10 ; Coronary artery disease I25.10 and Arthritis M19.90 [facility] [address] [id number] [address] [place] [address] Jun, [facility] [address] [id number] [address] [place] [address] Jun, Essential hypertension, jayson gn 401.1 ; Other chronic pain 338.29 and Chronic airway obstruction, not elsewhere classified 496 [facility] [address] [id number] [address] [place] [address] Jun, [facility] [address] [id number] [address] [place] [address] Jun, [facility] [address] [id number] [address] [place] [address] Jun, [facility] [address] [id number] [address] [place] [address] May, [facility] [address] [id number] [address] [place] [address] May, [facility] [address] [id number] [address] [place] [address] Apr, [facility] [address] [id number] [address] [place] [address] Apr, [facility] [address] [id number] [address] [place] [address] Apr, [facility] [address] [id number] [address] [place] [address] March, [facility] [address] [id number] [address] [place] [address] March, [facility] [address] [id number] [address] [place] [address], [place] [address] March, [facility] [address] [id number] [address] [place] [address], [place] [address] March, [facility] [address] [id number] [address] [place] [address], [place] [address] March, Sialadenitis 527.2 [facility] [address] [id number] [address] [place] [address], [place] [address] Feb, [facility] [address] [id number] [address] [place] [address], [place] [address] Feb, [facility] [address] [id number] [address] [place] [address], [place] [address] Feb, [facility] [address] [id number] [address] [place] [address], [place] [address] Feb, [facility] [address] [id number] [address] [place] [address], [place] [address] Feb, [facility] [address] [id number] [address] [place] [address], [place] [address] Jan, [facility] [address] [id number] [address] [place] [address], [place] [address] Jan, [facility] [address] [id number] [address] [place] [address], [place] [address] Jan, [facility] [address] [id number] [address] [place] [address], [place] [address] Jan, [facility] [address] [id number] [address] [place] [address], [place] [address] Jan, [facility] [address] [id number] [address] [place] [address], [place] [address] Jan, [facility] [address] [id number] [address] [place] [address], [place] [address] Dec, [facility] [address] [id number] [address] [place] [address], [place] [address] Dec, 2014 [facility] [address] [id number] [address] [place] [address], [place] [address] Dec, 2014 [facility] [address] [id number] [address] [place] [address], [place] [address] Dec, 2014 [facility] [address] [id number] [address] [place] [address], [place] [address] Dec, [facility] [address] [id number] [address] [place] [address], [place] [address] Dec, [facility] [address] [id number] [address] [place] [address], [place] [address] Nov, [facility] [address] [id number] [address] [place] [address], [place] [address] Nov, [facility] [address] [id number] [address] [place] [address], [place] [address] Nov, [facility] [address] [id number] [address] [place] [address], [place] [address] Nov, [facility] [address] [id number] [address] [place] [address], [place] [address] Nov, [facility] [address] [id number] [address] [place] [address], [place] [address] Nov, [facility] [address] [id number] [address] [place] [address], [place] [address] Nov, [facility] [address] [id number] [address] [place] [address], [place] [address] Nov, [facility] [address] [id number] [address] [place] [address], [place] [address] Nov, [facility] [address] [id number] [address] [place] [address], [place] [address] Nov, [facility] [address] [id number] [address] [place] [address], [place] [address] Nov, [facility] [address] [id number] [address] [place] [address], [place] [address] Nov, [facility] [address] [id number] [address] [place] [address], [place] [address] Nov, [facility] [address] [id number] [address] [place] [address], [place] [address] Nov, [facility] [address] [id number] [address] [place] [address], [place] [address] Oct, [facility] [address] [id number] [address] [place] [address], [place] [address] Oct, [facility] [address] [id number] [address] [place] [address], [place] [address] Oct, [facility] [address] [id number] [address] [place] [address], [place] [address] Oct, [facility] [address] [id number] [address] [place] [address], [place] [address] Oct, [facility] [address] [id number] [address] [place] [address], [place] [address] Oct, [facility] [address] [id number] [address] [place] [address], [place] [address] Oct, [facility] [address] [id number] [address] [place] [address], [place] [address] Oct, [facility] [address] [id number] [address] [place] [address], [place] [address] Oct, [facility] [address] [id number] [address] [place] [address], [place] [address] Sep, [facility] [address] [id number] [address] [place] [address], [place] [address] Sep, [facility] [address] [id number] [address] [place] [address], [place] [address] Sep, [facility] [address] [id number] [address] [place] [address], [place] [address] Sep, [facility] [address] [id number] [address] [place] [address], [place] [address] Sep, [facility] [address] [id number] [address] [place] [address], [place] [address] Sep, [facility] [address] [id number] [address] [place] [address], [place] [address] Sep, [facility] [address] [id number] [address] [place] [address], [place] [address] Sep, [facility] [address] [id number] [address] [place] [address], [place] [address] Sep, [facility] [address] [id number] [address] [place] [address], [place] [address] Sep, [facility] [address] [id number] [address] [place] [address], [place] [address] Sep, [facility] [address] [id number] [address] [place] [address], [place] [address] Sep, [facility] [address] [id number] [address] [place] [address], [place] [address] Aug, [facility] [address] [id number] [address] [place] [address], [place] [address] Aug, [facility] [address] [id number] [address] [place] [address], [place] [address] Aug, [facility] [address] [id number] [address] [place] [address], [place] [address] Aug, [facility] [address] [id number] [address] [place] [address], [place] [address] Aug, [facility] [address] [id number] [address] [place] [address], [place] [address] Aug, [facility] [address] [id number] [address] [place] [address], [place] [address] Aug, [facility] [address] [id number] [address] [place] [address], [place] [address] 17 Aug, 2014 [facility] [address] [id number] [address] [place] [address], [place] [address] 30 Jul, 2013 [facility] [address] [id number] [address] [place] [address], [place] [address] 30 Jul, 2013 [facility] [address] [id number] [address] [place] [address], [place] [address] 30 Jul, 2013 [facility] [address] [id number] [address] [place] [address], [place] [address] 30 Jul, 2013 [facility] [address] [id number] [address] [place] [address], [place] [address] 25 Jul, 2013 [facility] [address] [id number] [address] [place] [address], [place] [address] 25 Jul, 2013 [facility] [address] [id number] [address] [place] [address], [place] [address] 15 Jul, 2014 [facility] [address] [id number] [address] [place] [address], [place] [address] 15 Jul, 2014 [facility] [address] [id number] [address] [place] [address], [place] [address] 11 Jul, 2014 [facility] [address] [id number] [address] [place] [address], [place] [address] Jul, [facility] [address] [id number] [address] [place] [address], [place] [address] Jun, [facility] [address] [id number] [address] [place] [address], [place] [address] Jun, [facility] [address] [id number] [address] [place] [address], [place] [address] Jun, [facility] [address] [id number] [address] [place] [address], [place] [address] Jun, [facility] [address] [id number] [address] [place] [address], [place] [address] Jun, [facility] [address] [id number] [facility] [place] [address] Jun, [facility] [address] [id number] [address] [place] [address], [place] [address] Jun, [facility] [address] [id number] [address] [place] [address], [place] [address] Jun, [facility] [address] [id number] [address] [place] [address], [place] [address] Jun, [facility] [address] [id number] [address] [place] [address], [place] [address] Jun, [facility] [place] [address] [id number] [address] [place] [address], [place] [address] Jun, [facility] [address] [id number] [address] [place] [address], [place] [address] Jun, [facility] [place] [facility] [address] [id number] [address] [place] [address], [place] [address] Jun, [facility] [place] [address] [id number] [address] [place] [address], [place] [address] Jun, [facility] [place] [address] [id number] [address] [place] [address], [place] [address] Jun, [facility] [place] [facility] [address] [id number] [address] [place] [address], [place] [address] Jun, [facility] [place] [address] [id number] [address] [place] [address], [place] [address] Jun, [facility] [place] [address] [id number] [address] [place] [address], [place] [address] Jun, [facility] [address] [id number] [address] [place] [address], [place] [address] Jun, [facility] [place] [address] [id number] [address] [place] [address], [place] [address] Jun, [facility] [place] [facility] [address] [id number] [facility] [place] [address] Jun, [facility] [place] [facility] [address] [id number] [facility] [place] [address] Jun, [facility] [place] [address] [id number] [facility] [place] [address] May, [facility] [address] [id number] [address] [place] [address], [place] [address] May, [facility] [address] [id number] [address] [place] [address], [place] [address] May, [facility] [address] [id number] [address] [place] [address], [place] [address] May, [facility] [place] [address] [id number] [address] [place] [address], [place] [address] May, [facility] [place] [facility] [address] [id number] [address] [place] [address], [place] [address] May, [facility] [address] [id number] [address] [place] [address], [place] [address] May, [facility] [place] [address] [id number] [address] [place] [address], [place] [address] May, [facility] [address] [id number] [address] [place] [address], [place] [address] May, [facility] [address] [id number] [address] [place] [address], [place] [address] May, [facility] [address] [id number] [address] [place] [address], [place] [address] May, [facility] [facility] [address] [id number] [address] [place] [address], [place] [address] May, [facility] [address] [id number] [address] [place] [address], [place] [address] May, [facility] [address] [id number] [address] [place] [address], [place] [address] Apr, [facility] [address] [id number] [facility] [place] [address] Apr, [facility] [address] [id number] [facility] [place] [address] Apr, [facility] [address] [id number] [facility] [place] [address] Apr, [facility] [address] [id number] [facility] [place] [address] Apr, [facility] [address] [id number] [facility] [place] [address] Apr, [facility] [address] [id number] [address] [place] [address], [place] [address] Apr, [facility] [address] [id number] [address] [place] [address], [place] [address] Apr, [facility] [address] [id number] [address] [place] [address], [place] [address] Apr, [facility] [address] [id number] [address] [place] [address], [place] [address] March, [facility] [facility] [address] [id number] [address] [place] [address], [place] [address] March, [facility] [address] [id number] [address] [place] [address], [place] [address] March, [facility] [address] [id number] [address] [place] [address], [place] [address] March, [facility] [address] [id number] [facility] [place] [address] March, [facility] [address] [id number] [address] [place] [address], [place] [address] March, [facility] [facility] [address] [id number] [facility] [place] [address] March, [facility] [place] [facility] [address] [id number] [address] [address] March, [facility] [address] [id number] [address] [place] [address], [place] [address] March, [facility] [address] [id number] [address] [place] [address], [place] [address] March, [facility] [address] [id number] [address] [place] [address], [place] [address] March, [facility] [address] [id number] [address] [place] [address], [place] [address] March, [facility] [address] [id number] [address] [place] [address], [place] [address] March, [facility] [address] [id number] [address] [place] [address], [place] [address] March, [facility] [address] [id number] [address] [place] [address], [place] [address] March, [facility] [address] [id number] [address] [place] [address], [place] [address] March, [facility] [address] [id number] [address] [place] [address], [place] [address] March, [facility] [address] [id number] [address] [place] [address], [place] [address] March, [facility] [address] [id number] [address] [place] [address], [place] [address] March, [facility] [address] [id number] [address] [place] [address], [place] [address] March, [facility] [address] [id number] [address] [place] [address], [place] [address] Feb, [facility] [address] [id number] [address] [place] [address], [place] [address] Feb, [facility] [address] [id number] [address] [place] [address], [place] [address] Feb, [facility] [address] [id number] [facility] [place] [address] Feb, [facility] [address] [id number] [facility] [place] [address] Feb, [facility] [address] [id number] [address] [place] [address], [place] [address] Feb, [facility] [address] [id number] [address] [place] [address], [place] [address] Feb, [facility] [address] [id number] [address] [place] [address], [place] [address] Feb, [facility] [address] [id number] [address] [place] [address], [place] [address] Jan, [facility] [address] [id number] [address] [place] [address], [place] [address] Jan, [facility] [address] [id number] [address] [place] [address], [place] [address] Jan, [facility] [address] [id number] [address] [place] [address], [place] [address] Jan, [facility] [address] [id number] [address] [place] [address], [place] [address] Jan, [facility] [address] [id number] [address] [place] [address], [place] [address] Jan, [facility] [address] [id number] [address] [place] [address], [place] [address] Jan, [facility] [address] [id number] [address] [place] [address], [place] [address] Jan, [facility] [address] [id number] [address] [place] [address], [place] [address] Jan, [facility] [address] [id number] [address] [place] [address], [place] [address] Jan, [facility] [address] [id number] [address] [place] [address], [place] [address] Dec, [facility] [address] [id number] [address] [place] [address], [place] [address] Dec, [facility] [address] [id number] [address] [place] [address], [place] [address] Dec, [facility] [address] [id number] [address] [place] [address], [place] [address] Dec, [facility] [address] [id number] [address] [place] [address], [place] [address] Dec, [facility] [address] [id number] [address] [place] [address], [place] [address] Dec, [facility] [address] [id number] [address] [place] [address], [place] [address] Dec, [facility] [address] [id number] [address] [place] [address], [place] [address] Dec, [facility] [address] [id number] [address] [place] [address], [place] [address] Nov, [facility] [address] [id number] [address] [place] [address], [place] [address] Nov, [facility] [address] [id number] [address] [place] [address], [place] [address] Nov, [facility] [address] [id number] [address] [place] [address], [place] [address] Nov, [facility] [address] [id number] [address] [place] [address], [place] [address] Nov, [facility] [address] [id number] [address] [place] [address], [place] [address] Nov, [facility] [address] [id number] [address] [place] [address], [place] [address] Nov, [facility] [address] [id number] [address] [place] [address], [place] [address] Nov, [facility] [address] [id number] [address] [place] [address], [place] [address] Nov, [facility] [address] [id number] [address] [place] [address], [place] [address] Nov, [facility] [address] [id number] [address] [place] [address], [place] [address] Nov, [facility] [address] [id number] [address] [place] [address], [place] [address] Nov, [facility] [address] [id number] [address] [place] [address], [place] [address] Nov, [facility] [address] [id number] [address] [place] [address], [place] [address] Oct, [facility] [address] [id number] [address] [place] [address], [place] [address] Oct, [facility] [address] [id number] [address] [place] [address], [place] [address] Oct, [facility] [address] [id number] [address] [place] [address], [place] [address] Oct, [facility] [address] [id number] [address] [place] [address], [place] [address] Oct, [facility] [address] [id number] [address] [place] [address], [place] [address] Oct, [facility] [address] [id number] [address] [place] [address], [place] [address] Oct, [facility] [address] [id number] [address] [place] [address], [place] [address] Oct, [facility] [address] [id number] [address] [place] [address], [place] [address] Oct, [facility] [address] [id number] [address] [place] [address], [place] [address] 17 Oct, 2013 [facility] [address] [id number] [address] [place] [address] Oct, [facility] [address] [id number] [address] [place] [address], [place] [address] Oct, [facility] [address] [id number] [address] [place] [address], [place] [address] Oct, [facility] [address] [id number] [address] [place] [address], [place] [address] Oct, [facility] [address] [id number] [address] [place] [address] Sep, [facility] [address] [id number] [address] [place] [address], [place] [address] Sep, [facility] [address] [id number] [address] [place] [address] Sep, [facility] [address] [id number] [address] [place] [address], [place] [address] Sep, [facility] [address] [id number] [address] [place] [address] Sep, [facility] [address] [id number] [address] [place] [address] Sep, [facility] [address] [id number] [address] [place] [address], [place] [address] Sep, [facility] [address] [id number] [address] [place] [address] Sep, [facility] [address] [id number] [address] [place] [address] Sep, [facility] [address] [id number] [address] [place] [address] Sep, [facility] [address] [id number] [address] [place] [address] Aug, [facility] [address] [id number] [address] [place] [address], [place] [address] Aug, [facility] [address] [id number] [address] [place] [address], [place] [address] 24 Aug, 2012 [facility] [address] [id number] [address] [place] [address], [place] [address] 24 Aug, 2012 [facility] [address] [id number] [address] [place] [address], [place] [address] Aug, 2012 [facility] [address] [id number] [address] [place] [address], [place] [address] 23 Aug, 2012 [facility] [address] [id number] [address] [place] [address], [place] [address] Aug, 2012 [facility] [address] [id number] [address] [place] [address], [place] [address] Aug, 2012 [facility] [address] [id number] [address] [place] [address], [place] [address] Aug, [facility] [address] [id number] [address] [place] [address], [place] [address] Aug, 2012 [facility] [address] [id number] [address] [place] [address], [place] [address] 18 Aug, 2013 [facility] [address] [id number] [address] [place] [address], [place] [address] 18 Aug, 2013 [facility] [address] [id number] [address] [place] [address], [place] [address] 18 Aug, 2013 [facility] [address] [id number] [address] [place] [address], [place] [address] 18 Aug, 2012 [facility] [address] [id number] [address] [place] [address], [place] [address] 17 Aug, 2012 [facility] [address] [id number] [address] [place] [address], [place] [address] 14 Aug, 2012 [facility] [address] [id number] [address] [place] [address], [place] [address] 14 Aug, 2013 [facility] [address] [id number] [address] [place] [address], [place] [address] Aug, [facility] [address] [id number] [address] [place] [address], [place] [address] 20 Jul, 2013 [facility] [address] [id number] [address] [place] [address], [place] [address] 19 Jul, 2013 [facility] [address] [id number] [address] [place] [address], [place] [address] 18 Jul, 2013 [facility] [address] [id number] [address] [place] [address], [place] [address] Jul, [facility] [address] [id number] [address] [place] [address], [place] [address] Jul, [facility] [address] [id number] [address] [place] [address], [place] [address] Jun, [facility] [address] [id number] [address] [place] [address], [place] [address] Jun, [facility] [address] [id number] [address] [place] [address], [place] [address] Jun, [facility] [address] [id number] [address] [place] [address], [place] [address] Jun, [facility] [address] [id number] [address] [place] [address], [place] [address] Jun, [facility] [address] [id number] [address] [place] [address], [place] [address] Jun, [facility] [address] [id number] [address] [place] [address], [place] [address] Jun, [facility] [address] [id number] [address] [place] [address], [place] [address] Jun, [facility] [address] [id number] [address] [place] [address], [place] [address] Jun, [facility] [address] [id number] [address] [place] [address], [place] [address] Jun, [facility] [address] [id number] [address] [place] [address], [place] [address] May, [facility] [address] [id number] [address] [place] [address], [place] [address] May, [facility] [address] [id number] [address] [place] [address], [place] [address] May, [facility] [address] [id number] [address] [place] [address], [place] [address] May, [facility] [address] [id number] [address] [place] [address], [place] [address] May, [facility] [address] [id number] [address] [place] [address], [place] [address] 16 May, 2013 [facility] [address] [id number] [address] [place] [address], [place] [address] May, [facility] [address] [id number] [address] [place] [address], [place] [address] May, [facility] [address] [id number] [address] [place] [address], [place] [address] May, [facility] [address] [id number] [address] [place] [address], [place] [address] Apr, [facility] [address] [id number] [address] [place] [address], [place] [address] Apr, [facility] [address] [id number] [address] [place] [address], [place] [address] Apr, [facility] [address] [id number] [address] [place] [address], [place] [address] Apr, [facility] [address] [id number] [address] [place] [address], [place] [address] Apr, [facility] [address] [id number] [address] [place] [address], [place] [address] Apr, [facility] [address] [id number] [address] [place] [address], [place] [address] Apr, [facility] [address] [id number] [facility] [place] [address] March, [facility] [address] [id number] [address] [place] [address], [place] [address] Feb, [facility] [address] [id number] [address] [place] [address], [place] [address] Feb, [facility] [address] [id number] [address] [place] [address], [place] [address] Feb, [facility] [address] [id number] [address] [place] [address], [place] [address] Jan, [facility] [address] [id number] [address] [place] [address], [place] [address] Jan, [facility] [address] [id number] [address] [place] [address], [place] [address] Jan, [facility] [address] [id number] [address] [place] [address], [place] [address] 14 Jan, 2013 [facility] [address] [id number] [address] [place] [address], [place] [address] Jan, [facility] [address] [id number] [address] [place] [address], [place] [address] 08 Jan, 2013 [facility] [address] [id number] [address] [place] [address], [place] [address] Jan, [facility] [address] [id number] [address] [place] [address], [place] [address] Jan, [facility] [address] [id number] [address] [place] [address], [place] [address] Dec, [facility] [address] [id number] [address] [place] [address], [place] [address] Dec, [facility] [address] [id number] [address] [place] [address], [place] [address] Dec, [facility] [address] [id number] [address] [place] [address], [place] [address] 11 Dec, 2012 [facility] [address] [id number] [address] [place] [address], [place] [address] 07 Dec, 2012 [facility] [address] [id number] [address] [place] [address], [place] [address] 06 Dec, 2012 [facility] [address] [id number] [address] [place] [address], [place] [address] 05 Dec, 2012 [facility] [address] [id number] [address] [place] [address], [place] [address] Nov, [facility] [address] [id number] [address] [place] [address], [place] [address] 24 Nov, 2012 [facility] [address] [id number] [address] [place] [address], [place] [address] 18 Nov, 2012 [facility] [address] [id number] [address] [place] [address], [place] [address] Nov, [facility] [address] [id number] [address] [place] [address], [place] [address] Nov, [facility] [address] [id number] [address] [place] [address], [place] [address] Nov, [facility] [address] [id number] [address] [place] [address], [place] [address] Nov, [facility] [address] [id number] [address] [place] [address], [place] [address] Oct, [facility] [address] [id number] [address] [place] [address], [place] [address] Oct, [facility] [address] [id number] [address] [place] [address], [place] [address] Oct, [facility] [address] [id number] [address] [place] [address], [place] [address] 28 Oct, 2012 [facility] [address] [id number] [address] [place] [address], [place] [address] 17 Oct, 2012 [facility] [address] [id number] [address] [place] [address], [place] [address] Oct, [facility] [address] [id number] [address] [place] [address], [place] [address] Oct, [facility] [address] [id number] [address] [place] [address], [place] [address] Oct, [facility] [address] [id number] [address] [place] [address], [place] [address] Oct, [facility] [address] [id number] [address] [place] [address], [place] [address] Oct, [facility] [address] [id number] [address] [place] [address], [place] [address] Oct, [facility] [address] [id number] [address] [place] [address], [place] [address] Oct, [facility] [address] [id number] [address] [place] [address], [place] [address] Sep, [facility] [address] [id number] [address] [place] [address], [place] [address] Sep, [facility] [address] [id number] [address] [place] [address], [place] [address] Sep, [facility] [address] [id number] [address] [place] [address], [place] [address] Sep, [facility] [address] [id number] [address] [place] [address], [place] [address] Sep, [facility] [address] [id number] [address] [place] [address], [place] [address] Sep, [facility] [address] [id number] [address] [place] [address], [place] [address] Sep, [facility] [address] [id number] [address] [place] [address], [place] [address] Sep, [facility] [address] [id number] [address] [place] [address], [place] [address] Sep, [facility] [address] [id number] [address] [place] [address], [place] [address] Sep, [facility] [address] [id number] [address] [place] [address], [place] [address] Sep, [facility] [address] [id number] [address] [place] [address], [place] [address] Aug, [facility] [address] [id number] [address] [place] [address], [place] [address] Aug, [facility] [address] [id number] [address] [place] [address], [place] [address] Aug, [facility] [address] [id number] [address] [place] [address], [place] [address] Aug, [facility] [address] [id number] [address] [place] [address], [place] [address] Aug, [facility] [address] [id number] [address] [place] [address], [place] [address] Aug, [facility] [address] [id number] [address] [place] [address], [place] [address] Aug, [facility] [address] [id number] [address] [place] [address] Aug, [facility] [address] [id number] [address] [place] [address] Aug, [facility] [address] [id number] [address] [place] [address] Aug, [facility] [address] [id number] [address] [place] [address], [place] [address] Jul, [facility] [address] [id number] [address] [place] [address] 20 Jul, 2012 [facility] [address] [id number] [address] [place] [address], [place] [address] 10 Jul, 2012 [facility] [address] [id number] [address] [place] [address], [place] [address] 06 Jul, 2012 [facility] [address] [id number] [address] [place] [address], [place] [address] Jun, [facility] [address] [id number] [address] [place] [address], [place] [address] Jun, [facility] [address] [id number] [address] [place] [address], [place] [address] Jun, [facility] [address] [id number] [address] [place] [address], [place] [address] Jun, [facility] [address] [id number] [address] [place] [address], [place] [address] Jun, [facility] [address] [id number] [address] [place] [address], [place] [address] Jun, [facility] [address] [id number] [address] [place] [address], [place] [address] Jun, [facility] [address] [id number] [address] [place] [address], [place] [address] May, [facility] [address] [id number] [address] [place] [address], [place] [address] May, [facility] [address] [id number] [address] [place] [address], [place] [address] May, [facility] [address] [id number] [address] [place] [address], [place] [address] May, [facility] [address] [id number] [address] [place] [address], [place] [address] May, [facility] [address] [id number] [address] [place] [address], [place] [address] Apr, [facility] [address] [id number] [address] [place] [address], [place] [address] Apr, [facility] [address] [id number] [address] [place] [address], [place] [address] Apr, [facility] [address] [id number] [address] [place] [address], [place] [address] Apr, [facility] [address] [id number] [address] [place] [address], [place] [address] Apr, [facility] [address] [id number] [address] [place] [address], [place] [address] March, [facility] [address] [id number] [address] [place] [address], [place] [address] March, [facility] [address] [id number] [address] [place] [address], [place] [address] March, [facility] [address] [id number] [address] [place] [address], [place] [address] March, [facility] [address] [id number] [address] [place] [address], [place] [address] March, [facility] [address] [id number] [address] [place] [address], [place] [address] March, [facility] [address] [id number] [address] [place] [address], [place] [address] March, [facility] [address] [id number] [address] [place] [address], [place] [address] March, [facility] [address] [id number] [address] [place] [address], [place] [address] March, [facility] [address] [id number] [address] [place] [address], [place] [address] March, [facility] [address] [id number] [address] [place] [address], [place] [address] Feb, [facility] [address] [id number] [address] [place] [address], [place] [address] Feb, [facility] [address] [id number] [address] [place] [address], [place] [address] Feb, [facility] [address] [id number] [address] [place] [address], [place] [address] Feb, [facility] [address] [id number] [address] [place] [address], [place] [address] Feb, [facility] [address] [id number] [address] [place] [address], [place] [address] Feb, [facility] [address] [id number] [address] [place] [address], [place] [address] Feb, [facility] [address] [id number] [address] [place] [address], [place] [address] Feb, [facility] [address] [id number] [address] [place] [address], [place] [address] Feb, [facility] [address] [id number] [address] [place] [address], [place] [address] 08 Jan, 2012 [facility] [address] [id number] [address] [place] [address], [place] [address] Jan, [facility] [address] [id number] [address] [place] [address], [place] [address] 05 Jan, 2012 [facility] [address] [id number] [address] [place] [address], [place] [address] Jan, [facility] [address] [id number] [address] [place] [address], [place] [address] Dec, [facility] [address] [id number] [address] [place] [address], [place] [address] Dec, [facility] [address] [id number] [address] [place] [address], [place] [address] Nov, [facility] [address] [id number] [address] [place] [address], [place] [address] Nov, [facility] [address] [id number] [address] [place] [address], [place] [address] 18 Nov, 2011 [facility] [address] [id number] [address] [place] [address], [place] [address] 16 Nov, 2011 [facility] [address] [id number] [address] [place] [address] Nov, [facility] [address] [id number] [address] [place] [address] Oct, [facility] [address] [id number] [address] [place] [address] Oct, [facility] [address] [id number] [address] [place] [address] Oct, [facility] [address] [id number] [address] [place] [address] Oct, [facility] [address] [id number] [address] [place] [address] Oct, [facility] [address] [id number] [address] [place] [address] Oct, [facility] [address] [id number] [address] [place] [address] Oct, [facility] [address] [id number] [address] [place] [address] Oct, [facility] [address] [id number] [address] [place] [phone] Sep, IMMUNIZATIONS No Known Immunizations SOCIAL HISTORY Never Assessed REASON FOR VISIT PLAN OF CARE VITAL SIGNS Height 62 in 2013-11-12 Weight 179.17 lbs 2013-11-12 Temperature 97.6 degrees Fahrenheit 2013-11-12 Heart Rate 92 bpm 2013-11-12 Respiratory Rate 22 2013-11-12 Blood pressure systolic 160 mmHg 2013-11-12 Blood pressure diastolic 98 mmHg 2013-11-12 MEDICATIONS Unknown Medications RESULTS No Results PROCEDURES Procedure Date Ordered Result Body Site MEASURE BLOOD OXYGEN LEVEL Nov 12, 2013 CHEST X-RAY Nov 12, 2013 INSTRUCTIONS MEDICATIONS ADMINISTERED No Known Medications [...] fever, discharged 11/27/2017 11/26/2017 Hospitalization History ED [place]- Went Unrepsonsive, Hit head 2017 Hospitalization History ED [place]- Back Pain 05/05/ 8
--- OUTSIDE RECORDS SUMMARY | 2020-06-18 15:46 | XMS REPORT ---
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 Name Role Phone Migration, Doctor Unavailable Unavailable PROBLEMS Type Condition ICD9-CM Code [id number] Code Onset Dates Condition S tatus SNOMED Code Problem Hypertension I10 Active 4172353 3 Problem Hyperlipidemia E78.5 Active 24954 004 Problem Coronary artery disease I25.10 Active 94970701 Problem Low back pain M54.5 Active 371239 009 Problem Other chronic pain G89.29 Active 8 5450995 Problem Ventral hernia without obstruction or gangrene K43 .9 Active 854028865 Problem Type 2 diabetes mellitus wit hout complication, without long-term current use of insulin E11.9 Active 461664417 Problem Anxiety F41.9 Active 10486917 Problem Peripheral vascular disease I73.9 Ac tive 705136124 Problem Insomnia G47.00 Active 271672928 Problem Microcytic anemia D50.9 Active 23 8005437 Problem Pharyngeal dysphagia R13.13 Active 65796666173040 Problem Other iron deficiency anemia D50.8 A ctive 29920810 Problem Reactive depression F32.9 Active 63190166 Problem Paroxysmal atrial fibrillation I48.0 Active 785040521 Problem Postmenopausal atrophic vaginitis N95.2 Active 42354368 Problem Encounter for suprapubic catheter care Z43.5 Active 353955381 Problem Neurogenic bladder N31.9 Active 3 [id number] ALLERGIES No Information ENCOUNTERS Encounter Location Date Diagnosis [facility] [place] [address] [facility] [id number] [address] [place] [phone] March, [facility] [place] [address] [facility] [id number] [address] [place] [address] March, Anxiety F41.9 and Strain of right shoulder, subsequent encounter S46.911D [facility] [place] [address] [facility] [id number] [address] [place] [address] Feb, Anxiety F41.9 and Strain of right shoulder, subsequent encounter S46.911D [facility] [place] [address] [id number] [address] [place] [address] 24 Jan, 2020 Anxiety F41.9 and Strain of right shoulder, subsequent encounter S46.911D [facility] [place] [address] [id number] [address] [place] [phone] 17 Jan, 2020 Via [facility] [employer] [address] [place] [id number] Jan, Neurogenic bladder N31.9 [facility] [place] [address] [id number] [address] [place] [phone] Dec, 2019 [facility] [place] [address] [id number] [address] [place] [address] Dec, 2019 [place] [address] [id number] [address] [place] [phone] Dec, Anxiety F41.9 and Strain of right shoulder, subsequent encounter S46.911D [facility] [place] [address] [id number] [address] [place] [phone] 10 Dec, 2019 Other iron deficiency anemia D50.8 [facility] [place] [address] [id number] [address] [place] [phone] 04 Dec, 2019 Via [facility] [employer] [address] [place] [id number] Dec, Encounter for suprapubic catheter care Z 43.5 and Microcytic anemia D50.9 [facility] [place] [address] [id number] [address] [place] [phone] 03 Dec, 2019 [facility] [place] [address] [id number] [address] [place] [address] Nov, Anxiety F41.9 and Strain of right shoulder, subsequent encounter S46.911D [facility] [place] [address] [id number] [address] [place] [address] Nov, Hypertension I10 [facility] [employer] [address] [place] [id number] Nov, Pneumonia of both lungs due to infectiou s organism, unspecified part of lung J18.9 and Suprapubic catheter Z93.59 [facility] [place] [address] [id number] [address] [place] [phone] Nov, Hypertension I10 and Reactiv e depression F32.9 [facility] [place] [address] [id number] [address] [place] [address] Oct, Strain of right shoulder, scherer bsequent encounter S46.911D and Anxiety F41.9 [place] [address] [id number] [address] [place] [address] Oct, Via [facility] [address] [place] [id number] Oct, Suprapubic catheter Z93.59 and Candidias is, intertriginous B37.2 [place] [address] [id number] [address] [place] [address] Oct, Suprapubic catheter Z93.59 [facility] [place] [address] [id number] [address] [place] [address] Oct, Anxiety F41.9 and Strain of right shoulder, subsequent encounter S46.911D [facility] [place] [address] [id number] [address] [place] [phone] Sep, [facility] [place] [address] [id number] [address] [place] [address] Sep, [facility] [place] [address] [id number] [address] [place] [address] Sep, Via [facility] [address] [place] [id number] Sep, Suprapubic catheter Z93.59 [facility] [place] [address] [id number] [address] [place] [address] Sep, Anxiety F41.9 and Strain of right shoulder, subsequent encounter S46.911D [facility] [place] [address] [id number] [address] [place] [id number] Aug, [facility] [place] [address] [id number] [address] [place] [phone] Aug, [facility] [place] [address] [id number] [address] [place] [address] Aug, Anxiety F41.9 and Strain of right shoulder, subsequent encounter S46.911D Via [facility] [address] [place] [id number] Aug, Suprapubic catheter Z93.59 [facility] [place] [address] [id number] [address] [place] [address] Jul, Strain of right shoulder, scherer bsequent encounter S46.911D and Anxiety F41.9 [facility] [place] [address] [id number] [address] [place] [address] Jul, Anxiety F41.9 [facility] [place] [address] [id number] [address] [place] [phone] Jun, [facility] [place] [address] [id number] [address] [place] [phone] Jun, [facility] [place] [address] [id number] [address] [place] [phone] Jun, [facility] [place] [address] [id number] [address] [place] [phone] Jun, Strain of right shoulder, scherer bsequent encounter S46.911D [facility] [place] [address] [id number] [address] [place] [phone] Jun, Strain of right shoulder, scherer bsequent encounter S46.911D [facility] [place] [address] [id number] [address] [place] [address] Jun, Anxiety F41.9 Via [facility] [employer] [address] [place] [id number] Jun, Neurogenic bladder N31.9 and Anxiety F41 .9 Via [facility] [employer] [address] [place] [id number] May, Anxiety F41.9 [place] [address] [id number] [address] [place] [phone] May, Dysuria R30.0 [place] [address] [id number] [address] [place] [address] May, Strain of right shoulder, scherer bsequent encounter S46.911D and Anxiety F41.9 [place] [address] [id number] [address] [place] [address] Apr, [facility] [employer] [address] [place] [id number] Apr, Strain of right shoulder, subsequent enc ounter S46.911D [place] [address] [facility] [id number] [address] [place] [address] 14 Apr, 2019 Strain of right shoulder, scherer bsequent encounter S46.911D and Anxiety F41.9 Via [facility] [employer] [address] [place] [id number] 13 Apr, 2019 Type 2 diabetes mellitus without complic ation, without long-term current use of insulin E11.9 and Neurogenic bladder N31.9 Via [facility] [employer] [address] [place] [id number] Apr, Strain of right shoulder, subsequent enc ounter S46.911D ; History of GI bleed Z87.19 ; Neurogenic bladder N31.9 and Reactive depression F32.9 [place] [address] [id number] [address] [place] [address] 10 Apr, 2019 Acute pain of left shoulder M25.512 [place] [address] [id number] [address] [place] [id number] 07 Apr, 2019 [place] [address] [id number] [address] [place] [phone] 06 Apr, 2019 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 [facility] [employer] [address] [place] [id number] March, Gastrointestinal hemorrhage associated w ith acute gastritis K29.01 [facility] [place] [address] [id number] [address] [place] [address] March, Via [employer] [address] [place] [id number] March, Bronchitis J40 [facility] [place] [address] [id number] [address] [place] [phone] March, Cough R05 [facility] [place] [address] [id number] [address] [place] [address] March, Other chronic pain G89.29 [facility] [place] [address] [id number] [address] [place] [phone] March, Anxiety F41.9 [facility] [place] [address] [id number] [address] [place] [phone] March, [facility] [place] [address] [id number] [address] [place] [phone] Feb, Other chronic pain G89.29 [facility] [place] [address] [id number] [address] [place] [phone] Feb, Anxiety F41.9 [facility] [place] [address] [id number] [address] [place] [phone] Feb, Other chronic pain G89.29 Via [employer] [address] [place] [id number] Feb, Neurogenic bladder N31.9 and Suprapubic catheter Z93.59 [facility] [place] [address] [id number] [address] [place] [phone] Jan, Anxiety F41.9 [facility] [place] [address] [id number] [address] [place] [phone] Dec, Anxiety F41.9 [facility] [place] [address] [id number] [address] [place] [phone] Dec, Other chronic pain G89.29 an d Anxiety F41.9 [facility] [place] [address] [id number] [address] [place] [phone] Dec, Via [employer] [address] [place] [id number] Dec, Neurogenic bladder N31.9 and Suprapubic catheter Z93.59 [facility] [place] [address] [id number] [address] [place] [phone] Nov, Other chronic pain G89.29 an d Anxiety F41.9 [facility] [place] [address] [id number] [address] [place] [phone] Nov, Via [employer] [address] [place] [id number] Nov, Suprapubic catheter Z93.59 [facility] [place] [address] [id number] [address] [place] [address] Oct, Other chronic pain G89.29 an d Anxiety F41.9 [facility] [place] [address] [id number] [address] [place] [phone] Oct, [facility] [place] [address] [id number] [address] [place] [phone] Oct, Suprapubic catheter Z93.59 [facility] [place] [address] [id number] [address] [place] [phone] Oct, Via [employer] [address] [place] [id number] Oct, [facility] [place] [address] [id number] [address] [place] [phone] Oct, Anxiety F41.9 [facility] [place] [address] [id number] [address] [place] [phone] Oct, Anxiety F41.9 Via [employer] [address] [place] [id number] Oct, Other chronic pain G89.29 [facility] [place] [address] [id number] [address] [place] [phone] 14 Sep, 2018 Other chronic pain G89.29 Via [employer] [address] [place] [id number] Sep, Suprapubic catheter Z93.59 and Cervicalg ia M54.2 [facility] [place] [address] [id number] [address] [place] [id number] Sep, [facility] [place] [address] [id number] [address] [place] [phone] Sep, [facility] [place] [address] [id number] [address] [place] [phone] Sep, Via [employer] [address] [place] [id number] Aug, Cystitis N30.90 [facility] [place] [address] [id number] [address] [place] [phone] Aug, [facility] [place] [address] [id number] [address] [place] [address] Aug, Other chronic pain G89.29 [facility] [place] [address] [id number] [address] [place] [phone] Aug, Via [employer] [address] [place] [id number] Aug, Encounter for suprapubic catheter care Z 43.5 [facility] [place] [address] [id number] [address] [place] [address] Jul, Via [employer] [address] [place] [id number] Jul, [facility] [place] [address] [id number] [address] [place] [address] Jul, Other chronic pain G89.29 [facility] [place] [address] [id number] [address] [place] [phone] Jul, [facility] [place] [address] [id number] [address] [place] [address] Jul, Via [employer] [address] [place] [id number] Jun, Postmenopausal atrophic vaginitis N95.2 [place] [address] [id number] [address] [place] [address] Jun, Other chronic pain G89.29 [place] [address] [id number] [address] [place] [phone] Jun, Via [employer] [address] [place] [id number] May, Anxiety F41.9 ; Type 2 diabetes mellitus without complication, without long-term current use of insulin E11.9 ; Hypertension I10 ; Low back pain M54.5 ; Paroxysmal atrial fibrillation I48.0 and 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 [place] [address] [id number] [address] [place] [address] May, Other chronic pain G89.29 Via [employer] [address] [place] [id number] May, Low back pain M54.5 [place] [address] [id number] [address] [place] [address] May, [place] [address] [id number] [address] [place] [address] Apr, Other chronic pain G89.29 [place] [address] [id number] [address] [place] [address] Apr, [place] [address] [id number] [address] [place] [phone] Apr, Via [employer] [address] [place] [id number] Apr, Closed compression fracture of L3 lumbar vertebra with routine healing, subsequent encounter S32.030D Via [employer] [address] [place] [id number] Apr, Low back pain M54.5 [facility] [employer] [address] [place] [id number] Apr, Coccydynia M53.3 [facility] [place] [address] [id number] [address] [place] [phone] March, [facility] [place] [address] [id number] [address] [place] [address] March, Other chronic pain G89.29 [facility] [place] [address] [id number] [address] [place] [address] March, [facility] [place] [address] [id number] [address] [place] [address] March, [facility] [place] [address] [id number] [address] [place] [address] Feb, [facility] [place] [address] [id number] [address] [place] [address] Feb, Other chronic pain G89.29 Via [employer] [address] [place] [id number] Feb, Other chronic pain G89.29 and Anxiety F4 1.9 [facility] [place] [address] [id number] [address] [place] [address] Feb, [facility] [place] [address] [id number] [address] [place] [phone] Jan, [facility] [place] [address] [id number] [address] [place] [phone] Jan, [facility] [place] [address] [id number] [address] [place] [phone] Jan, [facility] [place] [address] [id number] [address] [place] [phone] Jan, [facility] [place] [address] [id number] [address] [place] [address] Dec, Via [employer] [address] [place] [id number] Dec, Peripheral vascular disease I73.9 ; 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 ; Other chronic pain G89.29 ; Anxiety F41.9 ; Reactive depression F32.9 ; Insomnia G47.00 and Type 2 diabetes mellitus without complication, without long-term current use of insulin E11.9 [facility] ADRIENNE SANCHEZ [id number] [address] Nov, [facility] [address] [id number] [place] [facility] [place] [facility] [place] [id number] Nov, Anxiety F41.9 [facility] [place] [address] [facility] [id number] [address] [place] [phone] Nov, [place] [address] [id number] [place] [facility] [place] [facility] [place] [id number] Nov, Anxiety F41.9 Via [employer] [facility] [address] [place] [id number] Nov, Status post surgery Z98.890 ; Confused R 41.0 ; Anxiety F41.9 and Other chronic pain G89.29 [place] [address] [id number] [place] [id number] Nov, Other chronic pain G89.29 [place] [address] [facility] [id number] [address] [place] [phone] Oct, [place] [address] [id number] [place] [id number] Oct, Other chronic pain G89.29 [place] [address] [facility] [id number] [address] [place] [phone] Oct, Anxiety F41.9 [place] [address] [id number] [place] [id number] Sep, Other chronic pain G89.29 [place] [address] [id number] [place] [id number] Sep, Via [facility] [address] [place] [id number] Aug, Dysuria R30.0 and Anxiety F41.9 [place] [address] [id number] [address] [place] [phone] 16 Aug, 2017 [facility] [address] [id number] [place] [id number] Aug, Other chronic pain G89.29 [facility] [place] [address] [id number] [address] [place] [phone] Jul, Other chronic pain G89.29 [facility] [address] [id number] [place] [id number] Jun, [facility] [address] [id number] [place] [id number] Jun, Other chronic pain G89.29 [facility] [place], [facility] [address] [id number] [address] [place] [phone] Jun, [facility] [place] [address] [facility] [id number] [address] [place] [id number] May, Other chronic pain G89.29 [facility] [place], [facility] [address] [id number] [address] [place] [id number] Apr, Other chronic pain G89.29 Via [facility], [place] [address] [place] [id number] Apr, Reactive depression F32.9 and Pharyngeal dysphagia R13.13 [facility] [place], [facility] [address] [facility] [id number] [address] [place] [phone] Apr, Urinary tract infection with out hematuria, site unspecified N39.0 [facility] [place] [address] [facility] [id number] [address] [place] [address] March, Other chronic pain G89.29 [facility] [place] [address] [id number] [address] [place] [address] Feb, Other chronic pain G89.29 [facility] [place] [address] [id number] [address] [place] [address] Feb, [facility] [address] [id number] [place] [id number] Feb, [facility] [address] [place] [id number] Feb, Dysuria R30.0 and Ventral hernia without obstruction or gangrene K43.9 [facility] [place] [address] [id number] [address] [place] [address] Jan, Other chronic pain G89.29 [facility] [address] [id number] [place] [id number] Dec, Other chronic pain G89.29 [facility] [place] [address] [id number] [address] [place] [address] Nov, Other chronic pain G89.29 [facility] [address] [place] [id number] Nov, Lymphadenitis I88.9 [facility] [place] [address] [id number] [address] [place] [address] Nov, Other chronic pain G89.29 [facility] [place] [address] [id number] [address] [place] [address] Nov, [facility] [address] [id number] [place] [id number] Nov, Other chronic pain G89.29 [facility] [employer] [address] [place] [id number] Oct, Low back pain M54.5 ; Hypertension I10 a nd Type 2 diabetes mellitus without complication, without long-term current use of insulin E11.9 [facility] [place] [address] [id number] [address] [place] [address] Oct, [facility] [place] [address] [id number] [address] [place] [address] Oct, [facility] [place] [address] [id number] [address] [place] [address] Oct, [facility] [place] [address] [id number] [address] [place] [address] Oct, [facility] [place] [address] [id number] [address] [place] [address] Sep, [facility] [place] [address] [id number] [address] [place] [address] Sep, [facility] [place] [address] [id number] [address] [place] [phone] Aug, Other chronic pain G89.29 [facility] [place] [address] [id number] [address] [place] [address] Jul, [facility] [place] [address] [id number] [address] [place] [id number] Jul, [facility] [place] [address] [id number] [address] [place] [id number] Jul, [facility] [place] [address] [id number] [address] [place] [address] Jun, [facility] [place] [address] [id number] [address] [place] [address] Jun, [facility] [address] [place] [id number] Jun, Low back pain M54.5 ; Other chronic pain G89.29 and Coronary artery disease I25.10 [facility] [place] [address] [id number] [address] [place] [address] Jun, [facility] [place] [address] [id number] [address] [place] [address] May, [facility] [place] [address] [id number] [address] [place] [address] May, [facility] [place] [address] [id number] [address] [place] [address] May, Other chronic pain G89.29 [facility] [place] [address] [id number] [address] [place] [address] May, [facility] [place] [address] [id number] [address] [place] [id number] 28 Apr, 2016 [facility] [place] [address] [id number] [address] [place] [address] 17 Apr, 2016 Acute cystitis without hemat uria N30.00 [facility] [place] [address] [id number] [address] [place] [id number] 16 Apr, 2016 Acute cystitis without hemat uria N30.00 ; Coronary artery disease I25.10 ; Low back pain M54.5 and Other chronic pain G89.29 [facility] [place] [address] [id number] [address] [place] [id number] 13 Apr, 2016 Other chronic pain G89.29 [facility] [place] [address] [id number] [address] [place] [address] March, Other chronic pain G89.29 [facility] [place] [address] [id number] [address] [place] [id number] 18 Feb, 2016 [facility] [place] [address] [id number] [address] [place] [phone] 15 Feb, 2016 Arthritis M19.90 [facility] [place] [address] [id number] [address] [place] [phone] Feb, [facility] [place] [address] [id number] [address] [place] [id number] 30 Jan, 2016 [facility] [place] [address] [id number] [address] [place] [phone] Jan, [facility] [place] [address] [id number] [address] [place] [address] Jan, Other chronic pain G89.29 [facility] [place] [address] [id number] [address] [place] [address] Jan, Hypertension I10 ; Coronary artery disease I25.10 and Insomnia G47.00 [facility] [place] [address] [id number] [address] [place] [id number] Jan, [facility] [place] [address] [id number] [address] [place] [address] Dec, Right hip pain M25.551 [facility] [place] [address] [id number] [address] [place] [address] Dec, [facility] [place] [address] [id number] [address] [place] [phone] Dec, [facility] [place] [address] [id number] [address] [place] [phone] Dec, [facility] [place] [address] [id number] [address] [place] [id number] Dec, Other chronic pain G89.29 [facility] [place] [address] [id number] [address] [place] [phone] Dec, [facility] [place] [address] [id number] [address] [place] [phone] Nov, [facility] [place] [address] [id number] [address] [place] [address] Nov, Other chronic pain G89.29 [facility] [place] [address] [id number] [address] [place] [address] Nov, Right hip pain M25.551 and C oronary artery disease I25.10 [facility] [place] [address] [id number] [address] [place] [address] Nov, Other chronic pain G89.29 [facility] [place] [address] [id number] [address] [place] [phone] Oct, [facility] [place] [address] [id number] [address] [place] [id number] Oct, [facility] [place] [address] [id number] [address] [place] [address] Sep, [facility] [place] [address] [id number] [address] [place] [phone] Sep, [facility] [place] [address] [id number] [address] [place] [address] Aug, [facility] [place] [address] [id number] [address] [place] [id number] Aug, Hypertension I10 ; Coronary artery disease I25.10 and Arthritis M19.90 [facility] [place] [address] [id number] [address] [place] [phone] Jun, [facility] [place] [address] [id number] [address] [place] [address] Jun, Essential hypertension, jayson gn 401.1 ; Other chronic pain 338.29 and Chronic airway obstruction, not elsewhere classified 496 [facility] [place] [address] [id number] [address] [place] [id number] Jun, [facility] [place] [address] [id number] [address] [place] [id number] Jun, [facility] [place] [address] [id number] [address] [place] [id number] Jun, [facility] [place] [address] [id number] [address] [place] [phone] May, [facility] [place] [address] [id number] [address] [place] [id number] May, [facility] [place] [address] [id number] [address] [place] [address] Apr, [facility] [place] [address] [id number] [address] [place] [address] Apr, [facility] [place] [address] [id number] [address] [place] [address] Apr, [facility] [address] [id number] [address] [place] [phone] March, [facility] [place] [address] [id number] [address] [place] [phone] March, [facility] [place] [address] [id number] [address] [place] [id number] March, [facility] [address] [id number] [address] [place] [address], [place] [address] March, [facility] [address] [id number] [address] [place] [address], [place] [address] March, Sialadenitis 527.2 [facility] [address] [id number] [address] [place] [address], [place] [address] Feb, [facility] [address] [id number] [address] [place] [address], [place] [address] Feb, [facility] [address] [id number] [address] [place] [address], [place] [address] Feb, [facility] [address] [id number] [address] [place] [address], [place] [address] Feb, [facility] [place] [address] [id number] [address] [place] [phone] Feb, [facility] [place] [address] [id number] [address] [place] [address], [place] [address] Jan, [facility] [place] [address] [id number] [address] [place] [address], [place] [address] Jan, [facility] [address] [id number] [address] [place] [address], [place] [address] Jan, [facility] [place] [address] [id number] [address] [place] [address], [place] [address] Jan, [facility] [place] [address] [id number] [address] [place] [id number] Jan, [facility] [place] [address] [id number] [address] [place] [phone] Jan, [facility] [address] [id number] [address] [place] [address], [place] [address] Dec, [facility] [place] [address] [id number] [address] [place] [id number] Dec, [facility] [address] [id number] [address] [place] [address], [place] [address] Dec, [facility] [address] [id number] [address] [place] [address], [place] [address] Dec, [facility] [address] [id number] [address] [place] [address], [place] [address] Dec, [facility] [address] [id number] [address] [place] [address], [place] [address] Dec, [facility] [address] [id number] [address] [place] [address], [place] [address] Nov, [facility] [address] [id number] [address] [place] [address], [place] [address] Nov, [facility] [address] [id number] [address] [place] [address], [place] [address] Nov, [facility] [address] [id number] [address] [place] [address], [place] [address] Nov, [facility] [address] [id number] [address] [place] [address], [place] [address] Nov, [facility] [address] [id number] [address] [place] [address], [place] [address] Nov, [facility] [address] [id number] [address] [place] [address], [place] [address] Nov, [facility] [address] [id number] [address] [place] [address], [place] [address] Nov, [facility] [address] [id number] [address] [place] [address], [place] [address] Nov, [facility] [address] [id number] [address] [place] [address], [place] [address] Nov, [facility] [address] [id number] [address] [place] [address], [place] [address] Nov, [facility] [address] [id number] [address] [place] [address], [place] [address] Nov, [facility] [address] [id number] [address] [place] [address], [place] [address] Nov, [facility] [address] [id number] [address] [place] [address], [place] [address] Nov, [facility] [address] [id number] [address] [place] [address], [place] [address] Oct, [facility] [address] [id number] [address] [place] [address], [place] [address] Oct, [facility] [address] [id number] [address] [place] [address], [place] [address] Oct, [facility] [address] [id number] [address] [place] [address], [place] [address] Oct, [facility] [address] [id number] [address] [place] [address], [place] [address] Oct, [facility] [address] [id number] [address] [place] [address], [place] [address] Oct, [facility] [address] [id number] [address] [place] [address], [place] [address] Oct, [facility] [address] [id number] [address] [place] [address], [place] [address] Oct, [facility] [address] [id number] [address] [place] [address], [place] [address] Oct, [facility] [address] [id number] [address] [place] [address], [place] [address] Sep, [facility] [address] [id number] [address] [place] [address], [place] [address] Sep, [facility] [address] [id number] [address] [place] [address], [place] [address] Sep, [facility] [address] [id number] [address] [place] [address], [place] [address] Sep, [facility] [address] [id number] [address] [place] [address], [place] [address] Sep, [facility] [address] [id number] [address] [place] [address], [place] [address] Sep, [facility] [address] [id number] [address] [place] [address], [place] [address] Sep, [facility] [address] [id number] [address] [place] [address], [place] [address] Sep, [facility] [address] [id number] [address] [place] [address], [place] [address] Sep, [facility] [address] [id number] [address] [place] [address], [place] [address] Sep, [facility] [address] [id number] [address] [place] [address], [place] [address] Sep, [facility] [address] [id number] [address] [place] [address], [place] [address] Sep, [facility] [address] [id number] [address] [place] [address], [place] [address] Aug, [facility] [address] [id number] [address] [place] [address], [place] [address] Aug, [facility] [address] [id number] [address] [place] [address], [place] [address] Aug, [facility] [address] [id number] [address] [place] [address], [place] [address] Aug, [facility] [address] [id number] [address] [place] [address], [place] [address] Aug, [facility] [address] [id number] [address] [place] [address], [place] [address] Aug, [facility] [address] [id number] [address] [place] [address], [place] [address] Aug, [facility] [address] [id number] [address] [place] [address], [place] [address] Aug, [facility] [address] [id number] [facility] [place] [address] 30 Jul, 2013 [facility] [address] [id number] [address] [place] [address], [place] [address] 30 Jul, 2013 [facility] [address] [id number] [address] [place] [address], [place] [address] 30 Jul, 2013 [facility] [address] [id number] [address] [place] [address], [place] [address] 30 Jul, 2013 [facility] [address] [id number] [address] [place] [address], [place] [address] 25 Jul, 2013 [facility] [address] [id number] [address] [place] [address], [place] [address] 25 Jul, 2013 [facility] [address] [id number] [address] [place] [address], [place] [id number] 15 Jul, 2014 [facility] [address] [id number] [address] [place] [address], [place] [address] 15 Jul, 2014 [facility] [address] [id number] [address] [place] [address], [place] [address] 11 Jul, 2014 [facility] [address] [id number] [address] [place] [address], [place] [address] Jul, [facility] [address] [id number] [address] [place] [address], [place] [address] Jun, [facility] [address] [id number] [address] [place] [address], [place] [address] Jun, [facility] [address] [id number] [address] [place] [address], [place] [address] Jun, [facility] [address] [id number] [address] [place] [address], [place] [address] Jun, [facility] [address] [id number] [address] [place] [address], [place] [address] Jun, [facility] [address] [id number] [address] [place] [address], [place] [address] Jun, [facility] [address] [id number] [facility] [place] [address] Jun, [facility] [address] [id number] [facility] [place] [address] Jun, [facility] [address] [id number] [facility] [place] [address] Jun, [facility] [address] [id number] [facility] [place] [address] Jun, [facility] [address] [id number] [address] [place] [address], [place] [address] Jun, [facility] [address] [id number] [address] [place] [address], [place] [address] Jun, [facility] [address] [id number] [address] [place] [address], [place] [address] Jun, [facility] [address] [id number] [address] [place] [address], [place] [address] Jun, [facility] [address] [id number] [address] [place] [address], [place] [address] Jun, [facility] [address] [id number] [address] [place] [address], [place] [address] Jun, [facility] [address] [id number] [address] [place] [address], [place] [address] Jun, [facility] [address] [id number] [address] [place] [address], [place] [address] Jun, [facility] [address] [id number] [address] [place] [address], [place] [address] Jun, [facility] [address] [id number] [address] [place] [address], [place] [address] Jun, [facility] [address] [id number] [address] [place] [address], [place] [address] Jun, [facility] [address] [id number] [facility] [place] [address] Jun, [facility] [address] [id number] [facility] [place] [address] May, [facility] [address] [id number] [facility] [place] [address] May, [facility] [address] [id number] [address] [place] [address], [place] [address] May, [facility] [address] [id number] [address] [place] [address], [place] [address] May, [facility] [address] [id number] [address] [place] [address], [place] [address] May, [facility] [address] [id number] [address] [place] [address], [place] [address] May, [facility] [address] [id number] [address] [place] [address], [place] [address] May, [facility] [address] [id number] [address] [place] [address], [place] [address] May, [facility] [address] [id number] [address] [place] [address], [place] [address] May, [facility] [address] [id number] [address] [place] [address], [place] [address] May, [facility] [address] [id number] 31 [place] [address], [place] [address] May, [facility] [address] [id number] [address] [place] [address], [place] [address] May, [facility] [address] [id number] [address] [place] [address], [place] [address] May, [facility] [address] [id number] [address] [place] [address], [place] [address] Apr, [facility] [address] [id number] [address] [place] [address], [place] [address] Apr, [facility] [address] [id number] [facility] [place] [address] Apr, [facility] [address] [id number] [address] [place] [address], [place] [address] Apr, [facility] [address] [id number] [facility] [place] [address] Apr, [facility] [address] [id number] [address] [place] [address], [place] [address] Apr, [facility] [address] [id number] [address] [place] [address], [place] [address] Apr, [facility] [address] [id number] [address] [place] [address], [place] [address] Apr, [facility] [address] [id number] [address] [place] [address], [place] [address] Apr, [facility] [address] [id number] [address] [place] [address], [place] [address] March, [facility] [address] [id number] [address] [place] [address], [place] [address] March, [facility] [address] [id number] [address] [place] [address], [place] [address] March, [facility] [address] [id number] [address] [place] [address], [place] [address] March, [facility] [address] [id number] [address] [place] [address], [place] [address] March, [facility] [address] [id number] [address] [place] [address], [place] [address] March, [facility] [address] [id number] [address] [place] [address], [place] [address] March, [facility] [address] [id number] [address] [place] [address], [place] [address] March, [facility] [address] [id number] [address] [place] [address], [place] [address] March, [facility] [address] [id number] [address] [place] [address], [place] [address] March, [facility] [address] [id number] [address] [place] [address], [place] [address] March, [facility] [address] [id number] [address] [place] [address], [place] [address] March, [facility] [address] [id number] [address] [place] [address], [place] [address] March, [facility] [address] [id number] [address] [place] [address], [place] [address] March, [facility] [address] [id number] [address] [place] [address], [place] [address] March, [facility] [address] [id number] [address] [place] [address], [place] [address] March, [facility] [address] [id number] [address] [place] [address], [place] [address] March, [facility] [address] [id number] [address] [place] [address], [place] [address] March, [facility] [address] [id number] [address] [place] [address], [place] [address] March, [facility] [address] [id number] [address] [place] [address], [place] [address] March, [facility] [address] [id number] [address] [place] [address], [place] [address] Feb, [facility] [address] [id number] [address] [place] [address], [place] [address] Feb, [facility] [address] [id number] [address] [place] [address], [place] [address] Feb, [facility] [address] [id number] [address] [place] [address], [place] [address] Feb, [facility] [address] [id number] [facility] [place] [address] Feb, [facility] [address] [id number] [address] [place] [address], [place] [address] Feb, [facility] [address] [id number] [address] [place] [address], [place] [address] Feb, [facility] [address] [id number] [address] [place] [address], [place] [address] Feb, [facility] [address] [id number] [address] [place] [address], [place] [address] Jan, [facility] [address] [id number] [address] [place] [address], [place] [address] Jan, [facility] [address] [id number] [address] [place] [address], [place] [address] Jan, [facility] [address] [id number] [address] [place] [address], [place] [address] Jan, [facility] [address] [id number] [address] [place] [address], [place] [address] Jan, [facility] [address] [id number] [address] [place] [address], [place] [address] Jan, [facility] [address] [id number] [address] [place] [address], [place] [address] Jan, [facility] [address] [id number] [address] [place] [address], [place] [address] Jan, [facility] [address] [id number] [address] [place] [address], [place] [address] Jan, [facility] [address] [id number] [address] [place] [address], [place] [address] Jan, [facility] [address] [id number] [address] [place] [address], [place] [address] Dec, [facility] [address] [id number] [address] [place] [address], [place] [address] Dec, [facility] [address] [id number] [address] [place] [address], [place] [address] Dec, [facility] [address] [id number] [address] [place] [address], [place] [address] Dec, [facility] [address] [id number] [address] [place] [address], [place] [address] Dec, [facility] [address] [id number] [address] [place] [address], [place] [address] Dec, [facility] [address] [id number] [address] [place] [address], [place] [address] Dec, [facility] [address] [id number] [address] [place] [address], [place] [address] Dec, [facility] [address] [id number] [address] [place] [address], [place] [address] Nov, [facility] [address] [id number] [address] [place] [address], [place] [address] Nov, [facility] [address] [id number] [address] [place] [address], [place] [address] Nov, [facility] [address] [id number] [address] [place] [address], [place] [address] Nov, [facility] [address] [id number] [address] [place] [address], [place] [address] Nov, [facility] [address] [id number] [address] [place] [address], [place] [address] Nov, [facility] [address] [id number] [address] [place] [address], [place] [address] Nov, [facility] [address] [id number] [address] [place] [address], [place] [address] Nov, [facility] [address] [id number] [address] [place] [address], [place] [address] Nov, [facility] [address] [id number] [address] [place] [address], [place] [address] Nov, [facility] [address] [id number] [address] [place] [address], [place] [address] Nov, [facility] [address] [id number] [address] [place] [address], [place] [address] Nov, [facility] [address] [id number] [address] [place] [address], [place] [address] Nov, [facility] [address] [id number] [address] [place] [address], [place] [address] Oct, [facility] [address] [id number] [address] [place] [address], [place] [address] Oct, [facility] [address] [id number] [address] [place] [address], [place] [address] Oct, [facility] [address] [id number] [address] [place] [address], [place] [address] Oct, [facility] [address] [id number] [address] [place] [address], [place] [address] Oct, [facility] [address] [id number] [address] [place] [address], [place] [address] Oct, [facility] [address] [id number] [address] [place] [address], [place] [address] Oct, [facility] [address] [id number] [address] [place] [address], [place] [address] Oct, [facility] [address] [id number] [address] [place] [address], [place] [address] Oct, [facility] [address] [id number] [address] [place] [address], [place] [address] Oct, [facility] [address] [id number] [address] [place] [address], [place] [address] Oct, [facility] [address] [id number] [address] [place] [address] Oct, [facility] [address] [id number] [address] [place] [address], [place] [address] Oct, [facility] [address] [id number] [address] [place] [address] Oct, [facility] [address] [id number] [address] [place] [address] Sep, [facility] [address] [id number] [address] [place] [address] Sep, [facility] [address] [id number] [address] [place] [address], [place] [address] Sep, [facility] [address] [id number] [address] [place] [address] Sep, [facility] [address] [id number] [address] [place] [address] Sep, [facility] [address] [id number] [address] [place] [address] Sep, [facility] [address] [id number] [address] [place] [address] Sep, [facility] [address] [id number] [address] [place] [address] Sep, [facility] [address] [id number] [address] [place] [address] Sep, [facility] [address] [id number] [address] [place] [address] Sep, [facility] [address] [id number] [address] [place] [address] Aug, [facility] [address] [id number] [address] [place] [address] Aug, [facility] [address] [id number] [address] [place] [address] Aug, [facility] [address] [id number] [address] [place] [address], [place] [address] 24 Aug, 2012 [facility] [address] [id number] [address] [place] [address], [place] [address] 23 Aug, 2012 [facility] [address] [id number] [address] [place] [address], [place] [address] 23 Aug, 2012 [facility] [address] [id number] [address] [place] [address], [place] [address] 23 Aug, 2012 [facility] [address] [id number] [address] [place] [address], [place] [address] 23 Aug, 2012 [facility] [address] [id number] [address] [place] [address], [place] [address] Aug, 2012 [facility] [address] [id number] [address] [place] [address], [place] [address] 22 Aug, 2012 [facility] [address] [id number] [address] [place] [address], [place] [address] 18 Aug, 2012 [facility] [address] [id number] [address] [place] [address], [place] [address] 18 Aug, 2013 [facility] [address] [id number] [address] [place] [address], [place] [address] 18 Aug, 2012 [facility] [address] [id number] [address] [place] [address], [place] [address] 18 Aug, 2013 [facility] [address] [id number] [address] [place] [address], [place] [address] 17 Aug, 2012 [facility] [address] [id number] [address] [place] [address], [place] [address] 14 Aug, 2013 [facility] [address] [id number] [address] [place] [address], [place] [address] 14 Aug, 2013 [facility] [address] [id number] [address] [place] [address], [place] [address] Aug, [facility] [address] [id number] [address] [place] [address], [place] [address] 20 Jul, 2013 [facility] [address] [id number] [address] [place] [address], [place] [address] 19 Jul, 2013 [facility] [address] [id number] [address] [place] [address], [place] [address] 18 Jul, 2013 [facility] [address] [id number] [address] [place] [address], [place] [address] 11 Jul, 2013 [facility] [address] [id number] [address] [place] [address], [place] [address] 11 Jul, 2013 [facility] [address] [id number] [address] [place] [address], [place] [address] Jun, [facility] [address] [id number] [address] [place] [address], [place] [address] Jun, [facility] [address] [id number] [address] [place] [address], [place] [address] Jun, [facility] [address] [id number] [address] [place] [address], [place] [address] 15 Jun, 2013 [facility] [address] [id number] [address] [place] [address], [place] [address] Jun, [facility] [address] [id number] [address] [place] [address], [place] [address] Jun, [facility] [address] [id number] [address] [place] [address], [place] [address] Jun, [facility] [address] [id number] [address] [place] [address], [place] [address] Jun, [facility] [address] [id number] [address] [place] [address], [place] [address] Jun, [facility] [address] [id number] [address] [place] [address], [place] [address] Jun, [facility] [address] [id number] [address] [place] [address], [place] [address] May, [facility] [address] [id number] [address] [place] [address], [place] [address] May, [facility] [address] [id number] [address] [place] [address], [place] [address] May, [facility] [address] [id number] [address] [place] [address], [place] [address] May, [facility] [address] [id number] [address] [place] [address], [place] [address] May, [facility] [address] [id number] [address] [place] [address], [place] [address] May, [facility] [address] [id number] [address] [place] [address], [place] [address] May, [facility] [address] [id number] [address] [place] [address], [place] [address] May, [facility] [address] [id number] [address] [place] [address], [place] [address] May, [facility] [address] [id number] [address] [place] [address], [place] [address] Apr, [facility] [address] [id number] [address] [place] [address], [place] [address] Apr, [facility] [address] [id number] [address] [place] [address], [place] [address] Apr, [facility] [address] [id number] [address] [place] [address], [place] [address] Apr, [facility] [address] [id number] [address] [place] [address], [place] [address] Apr, [facility] [address] [id number] [address] [place] [address], [place] [address] Apr, [facility] [address] [id number] [address] [place] [address], [place] [address] Apr, [facility] [address] [id number] [address] [place] [address], [place] [address] March, [facility] [address] [id number] [facility] [place] [address] Feb, [facility] [address] [id number] [address] [place] [address], [place] [address] Feb, [facility] [address] [id number] [address] [place] [address], [place] [address] Feb, [facility] [address] [id number] [address] [place] [address], [place] [address] 28 Jan, 2013 [facility] [address] [id number] [address] [place] [address], [place] [address] Jan, [facility] [address] [id number] [address] [place] [address], [place] [address] 19 Jan, 2013 [facility] [address] [id number] [address] [place] [address], [place] [address] 14 Jan, 2013 [facility] [address] [id number] [address] [place] [address], [place] [address] 12 Jan, 2013 [facility] [address] [id number] [address] [place] [address], [place] [address] 08 Jan, 2013 [facility] [address] [id number] [address] [place] [address], [place] [address] 07 Jan, 2013 [facility] [address] [id number] [address] [place] [address], [place] [id number] 04 Jan, 2013 [facility] [address] [id number] [address] [place] [address], [place] [id number] 28 Dec, 2012 [facility] [address] [id number] [address] [place] [address], [place] [id number] Dec, [facility] [address] [id number] [address] [place] [address], [place] [id number] 13 Dec, 2012 [facility] [address] [id number] [address] [place] [address], [place] [id number] Dec, [facility] [address] [id number] [address] [place] [address], [place] [id number] 07 Dec, 2012 [facility] [address] [id number] [address] [place] [address], [place] [id number] 06 Dec, 2012 [facility] [address] [id number] [address] [place] [address], [place] [id number] 05 Dec, 2012 [facility] [address] [id number] [address] [place] [address], [place] [id number] Nov, [facility] [address] [id number] [address] [place] [address], [place] [id number] 24 Nov, 2012 [facility] [address] [id number] [address] [place] [address], [place] [id number] 18 Nov, 2012 [facility] [address] [id number] [address] [place] [address], [place] [id number] 15 Nov, 2012 [facility] [address] [id number] [address] [place] [address], [place] [id number] Nov, [facility] [address] [id number] [address] [place] [address], [place] [id number] Nov, [facility] [address] [id number] [address] [place] [address], [place] [address] Nov, [facility] [address] [id number] [address] [place] [address], [place] [id number] Oct, [facility] [address] [id number] [address] [place] [address], [place] [id number] 31 Oct, 2012 [facility] [address] [id number] [address] [place] [address], [place] [id number] Oct, [facility] [address] [id number] [address] [place] [address], [place] [id number] Oct, [facility] [address] [id number] [address] [place] [address], [place] [address] Oct, [facility] [address] [id number] [address] [place] [address], [place] [id number] 17 Oct, 2012 [facility] [address] [id number] [address] [place] [address], [place] [id number] 07 Oct, 2012 [facility] [address] [id number] [address] [place] [address], [place] [address] Oct, [facility] [address] [id number] [address] [place] [address], [place] [id number] Oct, [facility] [address] [id number] [address] [place] [address], [place] [id number] Oct, [facility] [address] [id number] [address] [place] [address], [place] [id number] Oct, [facility] [address] [id number] [address] [place] [address], [place] [id number] Oct, [facility] [address] [id number] [address] [place] [address], [place] [id number] Sep, [facility] [address] [id number] [address] [place] [address], [place] [id number] Sep, [facility] [address] [id number] [address] [place] [address], [place] [id number] Sep, [facility] [address] [id number] [address] [place] [address], [place] [address] Sep, [facility] [address] [id number] [address] [place] [address], [place] [id number] Sep, [facility] [address] [id number] [address] [place] [address], [place] [address] Sep, [facility] [address] [id number] [address] [place] [address], [place] [id number] Sep, [facility] [address] [id number] [address] [place] [address], [place] [id number] Sep, [facility] [address] [id number] [address] [place] [address], [place] [id number] Sep, [facility] [address] [id number] [address] [place] [address], [place] [id number] Sep, [facility] [address] [id number] [address] [place] [address], [place] [address] Sep, [facility] [address] [id number] [address] [place] [address], [place] [address] Aug, [facility] [address] [id number] [address] [place] [address], [place] [id number] Aug, [facility] [address] [id number] [address] [place] [address], [place] [address] Aug, [facility] [address] [id number] [address] [place] [address], [place] [address] Aug, [facility] [address] [id number] [address] [place] [address], [place] [address] Aug, [facility] [address] [id number] [address] [place] [address], [place] [address] Aug, [facility] [address] [id number] [address] [place] [id number] Aug, [facility] [address] [id number] [address] [place] [address], [place] [address] Aug, [facility] [address] [id number] [address] [place] [id number] Aug, [facility] [address] [id number] [address] [place] [id number] Aug, [facility] [address] [id number] [address] [place] [id number] 22 Jul, 2012 [facility] [address] [id number] [address] [place] [address], [place] [id number] 20 Jul, 2011 [facility] [address] [id number] [address] [place] [id number] 10 Jul, 2011 [facility] [address] [id number] [place] [id number] 06 Jul, 2012 [facility] [address] [id number] [address] [place] [address], [place] [id number] Jun, [facility] [address] [id number] [address] [place] [address], [place] [id number] Jun, [facility] [address] [id number] [address] [place] [address], [place] [address] Jun, [facility] [address] [id number] [address] [place] [address], [place] [address] Jun, [facility] [address] [id number] [address] [place] [address], [place] [id number] Jun, [facility] [address] [id number] [address] [place] [address], [place] [address] Jun, [facility] [address] [id number] [address] [place] [address], [place] [address] Jun, [facility] [address] [id number] [address] [place] [address], [place] [address] May, [facility] [address] [id number] [address] [place] [address], [place] [address] May, [facility] [address] [id number] [address] [place] [address], [place] [address] May, [facility] [address] [id number] [address] [place] [address], [place] [address] May, [facility] [address] [id number] [address] [place] [address], [place] [address] May, [facility] [address] [id number] [address] [place] [address], [place] [address] Apr, [facility] [address] [id number] [address] [place] [address], [place] [address] Apr, [facility] [address] [id number] [address] [place] [address], [place] [address] Apr, [facility] [address] [id number] [address] [place] [address], [place] [address] Apr, [facility] [address] [id number] [address] [place] [address], [place] [address] Apr, [facility] [address] [id number] [address] [place] [address], [place] [address] March, [facility] [address] [id number] [address] [place] [address], [place] [address] March, [facility] [address] [id number] [address] [place] [address], [place] [address] March, [facility] [address] [id number] [address] [place] [address], [place] [address] March, [facility] [address] [id number] [address] [place] [address], [place] [address] March, [facility] [address] [id number] [address] [place] [address], [place] [address] March, [facility] [address] [id number] [address] [place] [address], [place] [address] March, [facility] [address] [id number] [address] [place] [address], [place] [address] March, [facility] [address] [id number] [address] [place] [address], [place] [address] March, [facility] [address] [id number] [address] [place] [address], [place] [address] March, [facility] [address] [id number] [address] [place] [address], [place] [address] Feb, [facility] [address] [id number] [address] [place] [address], [place] [address] Feb, [facility] [address] [id number] [address] [place] [address], [place] [address] Feb, [facility] [address] [id number] [address] [place] [address], [place] [address] Feb, [facility] [address] [id number] [address] [place] [address], [place] [address] Feb, [facility] [address] [id number] [address] [place] [address], [place] [address] Feb, [facility] [address] [id number] [address] [place] [address], [place] [address] Feb, [facility] [address] [id number] [address] [place] [address], [place] [address] Feb, [facility] [address] [id number] [address] [place] [address], [place] [address] Feb, [facility] [address] [id number] [address] [place] [address], [place] [address] Jan, [facility] [address] [id number] [address] [place] [address], [place] [address] Jan, [facility] [address] [id number] [address] [place] [address], [place] [address] Jan, [facility] [address] [id number] [address] [place] [address], [place] [address] Jan, [facility] [address] [id number] [address] [place] [address], [place] [address] Dec, [facility] [address] [id number] [address] [place] [address], [place] [address] Dec, [facility] [address] [id number] [address] [place] [address], [place] [address] Nov, [facility] [address] [id number] [address] [place] [address], [place] [address] Nov, [facility] [address] [id number] [address] [place] [address], [place] [address] Nov, [facility] [address] [id number] [address] [place] [address], [place] [address] 16 Nov, 2011 [facility] [address] [id number] [address] [place] [address], [place] [address] Nov, [facility] [address] [id number] [address] [place] [id number] Oct, [facility] [place] [address] [id number] [address] [place] [id number] Oct, [facility] [place] [address] [id number] [address] [place] [id number] Oct, [facility] [place] [address] [id number] [address] [place] [id number] Oct, [facility] [place] [address] [id number] [address] [place] [id number] Oct, [facility] [place] [address] [facility] [id number] [address] [place] [id number] Oct, [facility] [place] [address] [id number] [address] [place] [id number] Oct, [facility] [place] [address] [facility] [id number] [address] [place] [phone] Oct, [facility] [place] [address] [facility] [id number] [address] [place] [id number] Sep, IMMUNIZATIONS No Known Immunizations SOCIAL HISTORY [...] discharged 11/27/2017 11/26/2017 Hospitalization History [facility] [place]- Went Unrepsonsive, Hit head 2017 Hospitalization History [facility] [place]- Back Pain 8
--- OUTSIDE RECORDS SUMMARY | 2020-06-18 15:46 | XMS REPORT ---
Author Sanjuanita Burris [facility] Address [address] [place] [address] Care Team Providers Care Quoter Name Role Phone TARI AUDIE Unavailable PROBLEMS Type Condition ICD9-CM Code WGP88-EP Code Onset Dates Condition S tatus SNOMED Code Problem Hypertension I10 Active 0039361 3 Problem Hyperlipidemia E78.5 Active 05335 004 Problem Coronary artery disease I25.10 Active 72260033 Problem Low back pain M54.5 Active 376632 009 Problem Other chronic pain G89.29 Active 8 2322031 Problem Ventral hernia without obstruction or gangrene K43 .9 Active 903995629 Problem Type 2 diabetes mellitus wit hout complication, without long-term current use of insulin E11.9 Active 327504415 Problem Anxiety F41.9 Active 39476417 Problem Peripheral vascular disease I73.9 Ac tive 118884095 Problem Insomnia G47.00 Active 449431964 Problem Microcytic anemia D50.9 Active 23 9067646 Problem Pharyngeal dysphagia R13.13 Active 02002368867933 Problem Other iron deficiency anemia D50.8 A ctive 22885978 Problem Reactive depression F32.9 Active 93207624 Problem Paroxysmal atrial fibrillation I48.0 Active 998964884 Problem Postmenopausal atrophic vaginitis N95.2 Active 40503467 Problem Encounter for suprapubic catheter care Z43.5 Active 583702513 Problem Neurogenic bladder N31.9 Active 3 [id number] ALLERGIES No Information ENCOUNTERS Encounter Location Date Diagnosis [facility] [address] [facility] [id number] [address] [place] [address] March, [facility] [address] [facility] [id number] [address] [place] [address] 13 Mar, 2020 Anxiety F41.9 and Strain of right shoulder, subsequent encounter S46.911D [facility] [address] [facility] [id number] [address] [place] [address] Feb, Anxiety F41.9 and Strain of right shoulder, subsequent encounter S46.911D [facility] [address] [id number] [address] [place] [place] [address] Jan, Anxiety F41.9 and Strain of right shoulder, subsequent encounter S46.911D [facility] [address] [id number] [address] [place] [address] Jan, Via [facility] [address] [place] [id number] Jan, Neurogenic bladder N31.9 [facility] [address] [id number] [address] [place] [address] Dec, 2019 [facility] [address] [id number] [address] [place] [address] Dec, 2019 [facility] [address] [id number] [address] [place] [address] Dec, Anxiety F41.9 and Strain of right shoulder, subsequent encounter S46.911D [facility] [address] [id number] [address] [place] [address] 10 Dec, 2019 Other iron deficiency anemia D50.8 [facility] [address] [id number] [address] [place] [address] 04 Dec, 2019 [facility] [address] [place] [id number] Dec, Encounter for suprapubic catheter care Z 43.5 and Microcytic anemia D50.9 [facility] [address] [id number] [address] [place] [address] Dec, [facility] [address] [id number] [address] [place] [address] Nov, Anxiety F41.9 and Strain of right shoulder, subsequent encounter S46.911D [facility] [address] [id number] [address] [place] [address] Nov, Hypertension I10 [facility] [address] [place] [id number] Nov, Pneumonia of both lungs due to infectiou s organism, unspecified part of lung J18.9 and Suprapubic catheter Z93.59 [facility] [address] [id number] [address] [place] [address] Nov, Hypertension I10 and Reactiv e depression F32.9 [facility] [address] [id number] [address] [place] [address] Oct, Strain of right shoulder, scherer bsequent encounter S46.911D and Anxiety F41.9 [facility] [address] [id number] [address] [place] [address] Oct, Via [facility] [address] [place] [id number] Oct, Suprapubic catheter Z93.59 and Candidias is, intertriginous B37.2 [facility] [address] [id number] [address] [place] [address] Oct, Suprapubic catheter Z93.59 [facility] [address] [id number] [address] [place] [address] Oct, Anxiety F41.9 and Strain of right shoulder, subsequent encounter S46.911D [facility] [address] [id number] [address] [place] [address] Sep, [facility] [address] [id number] [address] [place] [address] Sep, [facility] [address] [id number] [address] [place] [address] Sep, Via [facility] [address] [place] [id number] Sep, Suprapubic catheter Z93.59 [facility] [address] [id number] [address] [place] [address] Sep, Anxiety F41.9 and Strain of right shoulder, subsequent encounter S46.911D [facility] [address] [id number] [address] [place] [address] Aug, [facility] [address] [id number] [address] [place] [address] Aug, [facility] [address] [id number] [address] [place] [address] Aug, Anxiety F41.9 and Strain of right shoulder, subsequent encounter S46.911D Via [facility] [address] [place] [id number] Aug, Suprapubic catheter Z93.59 [facility] [address] [id number] [address] [place] [address] Jul, Strain of right shoulder, scherer bsequent encounter S46.911D and Anxiety F41.9 [facility] [address] [id number] [address] [place] [address] Jul, Anxiety F41.9 [facility] [address] [id number] [address] [place] [address] Jun, [facility] [address] [id number] [address] [place] [address] Jun, [facility] [address] [id number] [address] [place] [address] Jun, [facility] [address] [id number] [address] [place] [address] Jun, Strain of right shoulder, scherer bsequent encounter S46.911D [facility] [address] [id number] [address] [place] [address] Jun, Strain of right shoulder, scherer bsequent encounter S46.911D [facility] [address] [id number] [address] [place] [address] Jun, Anxiety F41.9 Via [facility] [address] [place] [id number] Jun, Neurogenic bladder N31.9 and Anxiety F41 .9 Via [facility] [address] [place] [id number] May, Anxiety F41.9 [facility] [address] [id number] [address] [place] [address] May, Dysuria R30.0 [facility] [address] [id number] [address] [place] [address] May, Strain of right shoulder, scherer bsequent encounter S46.911D and Anxiety F41.9 [facility] [address] [id number] [address] [place] [address] Apr, Via [facility] [facility] [address] [place] [id number] Apr, Strain of right shoulder, subsequent enc ounter S46.911D [facility] [place] [address] [id number] [address] [place] [address] Apr, Strain of right shoulder, scherer bsequent encounter S46.911D and Anxiety F41.9 Via [facility] [address] [place] [id number] Apr, Type 2 diabetes mellitus without complic ation, without long-term current use of insulin E11.9 and Neurogenic bladder N31.9 Via [facility] [address] [place] [address] Apr, Strain of right shoulder, subsequent enc ounter S46.911D ; History of GI bleed Z87.19 ; Neurogenic bladder N31.9 and Reactive depression F32.9 [facility] [address] [id number] [address] [place] [address] Apr, Acute pain of left shoulder M25.512 [facility] [address] [id number] [address] [place] [address] 07 Apr, 2019 [facility] [address] [id number] [address] [place] [address] Apr, Anxiety F41.9 and 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 [address] [place] [id number] March, Gastrointestinal hemorrhage associated w ith acute gastritis K29.01 [facility] [address] [id number] [address] [place] [address] March, Via [facility] [address] [place] [id number] March, Bronchitis J40 [facility] [address] [id number] [address] [place] [address] March, Cough R05 [facility] [address] [id number] [address] [place] [address] March, Other chronic pain G89.29 [facility] [address] [id number] [address] [place] [address] March, Anxiety F41.9 [facility] [address] [id number] [address] [place] [address] March, [facility] [address] [id number] [address] [place] [address] Feb, Other chronic pain G89.29 [facility] [address] [id number] [address] [place] [address] Feb, Anxiety F41.9 [facility] [address] [id number] [address] [place] [address] Feb, Other chronic pain G89.29 [facility] [address] [place] [id number] Feb, Neurogenic bladder N31.9 and Suprapubic catheter Z93.59 [facility] [address] [id number] [address] [place] [address] Jan, Anxiety F41.9 [facility] [address] [id number] [address] [place] [address] Dec, Anxiety F41.9 [facility] [address] [id number] [address] [place] [address] Dec, Other chronic pain G89.29 an d Anxiety F41.9 [facility] [address] [id number] [address] [place] [phone] 15 Dec, 2018 Via [employer] [facility] [address] [place] [id number] Dec, Neurogenic bladder N31.9 and Suprapubic catheter Z93.59 [facility] [address] [id number] [address] [place] [address] Nov, Other chronic pain G89.29 an d Anxiety F41.9 [facility] [address] [id number] [address] [place] [address] Nov, Via [facility] [address] [place] [id number] Nov, Suprapubic catheter Z93.59 [facility] [address] [id number] [address] [place] [address] Oct, Other chronic pain G89.29 an d Anxiety F41.9 [facility] [address] [id number] [address] [place] [address] Oct, [facility] [address] [id number] [address] [place] [address] Oct, Suprapubic catheter Z93.59 [facility] [address] [id number] [address] [place] [address] Oct, Via [facility] [address] [place] [id number] Oct, [facility] [address] [id number] [address] [place] [address] Oct, Anxiety F41.9 [facility] [address] [id number] [address] [place] [address] Oct, Anxiety F41.9 Via [facility] [address] [place] [id number] Oct, Other chronic pain G89.29 [facility] [address] [id number] [address] [place] [address] 14 Sep, 2018 Other chronic pain G89.29 Via [facility] [address] [place] [id number] Sep, Suprapubic catheter Z93.59 and Cervicalg ia M54.2 [facility] [address] [id number] [address] [place] [address] Sep, [facility] [address] [id number] [address] [place] [address] Sep, [facility] [address] [id number] [address] [place] [address] Sep, Via [facility] [address] [place] [id number] Aug, Cystitis N30.90 [facility] [address] [id number] [address] [place] [address] Aug, [facility] [address] [id number] [address] [place] [address] Aug, Other chronic pain G89.29 [facility] [address] [id number] [address] [place] [address] Aug, Via [facility] [address] [place] [id number] Aug, Encounter for suprapubic catheter care Z 43.5 [facility] [address] [id number] [address] [place] [address] Jul, Via [facility] [address] [place] [id number] Jul, [facility] [address] [id number] [address] [place] [address] Jul, Other chronic pain G89.29 [facility] [address] [id number] [address] [place] [address] Jul, [facility] [address] [id number] [address] [place] [address] 10 Jul, 2018 Via [facility] [address] [place] [id number] Jun, Postmenopausal atrophic vaginitis N95.2 [facility] [address] [id number] [address] [place] [address] 17 Jun, 2018 Other chronic pain G89.29 [facility] [address] [id number] [address] [place] [address] Jun, Via [facility] [address] [place] [address] May, Anxiety F41.9 ; Type 2 diabetes mellitus without complication, without long-term current use of insulin E11.9 ; Hypertension I10 ; Low back pain M54.5 ; Paroxysmal atrial fibrillation I48.0 and 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 [facility] [address] [id number] [address] [place] [address] May, Other chronic pain G89.29 Via [facility] [address] [place] [address] May, Low back pain M54.5 [facility] [address] [id number] [address] [place] [address] May, [place] [address] [id number] [address] [place] [address] Apr, Other chronic pain G89.29 [facility] [address] [id number] [address] [place] [address] Apr, [facility] [place] [address] [id number] [address] [place] [address] Apr, Via [facility] [address] [place] [id number] Apr, Closed compression fracture of L3 lumbar vertebra with routine healing, subsequent encounter S32.030D [facility] [address] [place] [id number] Apr, Low back pain M54.5 Via [facility] [address] [place] [address] Apr, Coccydynia M53.3 [facility] [address] [id number] [address] [place] [address] March, [facility] [address] [id number] [address] [place] [address] March, Other chronic pain G89.29 [facility] [address] [id number] [address] [place] [address] March, [facility] [address] [id number] [address] [place] [address] March, [facility] [address] [id number] [address] [place] [address] Feb, [facility] [address] [id number] [address] [place] [address] Feb, Other chronic pain G89.29 Via [facility] [employer] [facility] [address] [place] [address] Feb, Other chronic pain G89.29 and Anxiety F4 1.9 [facility] [address] [id number] [address] [place] [address] Feb, [facility] [address] [id number] [address] [place] [address] Jan, [facility] [address] [id number] [address] [place] [address] Jan, [facility] [address] [id number] [address] [place] [address] Jan, [facility] [address] [id number] [address] [place] [address] Jan, [facility] [address] [id number] [address] [place] [address] Dec, Via [employer] [facility] [address] [place] [address] Dec, Peripheral vascular disease I73.9 ; 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 ; Other chronic pain G89.29 ; Anxiety F41.9 ; Reactive depression F32.9 ; Insomnia G47.00 and Type 2 diabetes mellitus without complication, without long-term current use of insulin E11.9 [facility] [address] [id number] [place] [address] Nov, [facility] [address] [id number] [place] [id number] Nov, Anxiety F41.9 [facility] [address] [facility] [id number] [address] [place] [address] Nov, [facility] [address] [id number] [place] [id number] Nov, Anxiety F41.9 Via [facility] [address] [place] [id number] Nov, Status post surgery Z98.890 ; Confused R 41.0 ; Anxiety F41.9 and Other chronic pain G89.29 [facility] [address] [id number] [place] [id number] Nov, Other chronic pain G89.29 [facility] [address] [facility] [id number] [address] [place] [address] Oct, [facility] [address] [id number] [place] [id number] Oct, Other chronic pain G89.29 [facility] [address] [facility] [id number] [address] [place] [address] Oct, Anxiety F41.9 [facility] [address] [id number] [place] [id number] Sep, Other chronic pain G89.29 [facility] [address] [id number] [place] [id number] Sep, Via [facility] [address] [place] [id number] Aug, Dysuria R30.0 and Anxiety F41.9 [facility] [address] [id number] [address] [place] [address] Aug, [facility] [id number] [place] [id number] Aug, Other chronic pain G89.29 [facility] [address] [facility] [id number] [address] [place] [address] Jul, Other chronic pain G89.29 [facility] [address] [id number] [place] [facility] [place] [id number] Jun, [facility] [address] [id number] [place] [facility] [place] [id number] Jun, Other chronic pain G89.29 [facility] [address] [facility] [id number] [address] [place] [phone] Jun, [facility] [address] [facility] [id number] [address] [place] [phone] May, Other chronic pain G89.29 [facility] [address] [id number] [address] [place] [phone] Apr, Other chronic pain G89.[address] [facility] [address] [place] [id number] Apr, Reactive depression F32.9 and Pharyngeal dysphagia R13.13 [facility] [address] [facility] [id number] [address] [place] [phone] Apr, Urinary tract infection with out hematuria, site unspecified N39.0 [facility] [address] [id number] [address] [place] [id number] March, Other chronic pain G89.29 [facility] [address] [facility] [id number] [address] [place] [phone] Feb, Other chronic pain G89.29 [facility] [address] [facility] [id number] [address] [place] [phone] Feb, [facility] [address] [id number] [place] [id number] Feb, Via [facility] [address] [place] [id number] Feb, Dysuria R30.0 and Ventral hernia without obstruction or gangrene K43.9 [facility] [address] [id number] [address] [place] [phone] Jan, Other chronic pain G89.29 [facility] [address] [id number] [place] [id number] Dec, Other chronic pain G89.29 [facility] [address] [id number] [address] [place] [phone] Nov, Other chronic pain G89.29 [address] [facility] [address] [place] [id number] Nov, Lymphadenitis I88.9 [facility] [address] [id number] [address] [place] [phone] Nov, Other chronic pain G89.29 [facility] [address] [id number] [address] [place] [phone] Nov, [facility] [address] [id number] [place] [id number] Nov, Other chronic pain G89.29 [address] [facility] [address] [place] [id number] Oct, Low back pain M54.5 ; Hypertension I10 a nd Type 2 diabetes mellitus without complication, without long-term current use of insulin E11.9 [facility] [address] [id number] [address] [place] [phone] Oct, [facility] [address] [id number] [address] [place] [phone] Oct, [facility] [address] [facility] [id number] [address] [place] [address] Oct, [facility] [address] [id number] [address] [place] [address] Oct, [facility] [address] [id number] [address] [place] [address] Sep, [facility] [address] [id number] [address] [place] [address] Sep, [facility] [address] [id number] [address] [place] [address] Aug, Other chronic pain G89.29 [facility] [address] [id number] [address] [place] [address] Jul, [facility] [address] [id number] [address] [place] [address] Jul, [facility] [address] [id number] [address] [place] [address] Jul, [facility] [address] [id number] [address] [place] [address] Jun, [facility] [address] [id number] [address] [place] [address] Jun, [facility] [address] [place] [id number] Jun, Low back pain M54.5 ; Other chronic pain G89.29 and Coronary artery disease I25.10 [facility] [address] [id number] [address] [place] [address] Jun, [facility] [address] [id number] [address] [place] [address] May, [facility] [address] [id number] [address] [place] [address] May, [facility] [address] [id number] [address] [place] [address] May, Other chronic pain G89.29 [facility] [address] [id number] [address] [place] [address] May, [facility] [address] [id number] [address] [place] [address] Apr, [facility] [address] [id number] [address] [place] [address] 17 Apr, 2016 Acute cystitis without hemat uria N30.00 [facility] [address] [id number] [address] [place] [address] 16 Apr, 2016 Acute cystitis without hemat uria N30.00 ; Coronary artery disease I25.10 ; Low back pain M54.5 and Other chronic pain G89.29 [facility] [address] [id number] [address] [place] [address] Apr, Other chronic pain G89.29 [facility] [address] [id number] [address] [place] [address] March, Other chronic pain G89.29 [facility] [address] [id number] [address] [place] [address] 18 Feb, 2016 [facility] [address] [id number] [address] [place] [address] 15 Feb, 2016 Arthritis M19.90 [facility] [address] [id number] [address] [place] [address] Feb, [facility] [address] [id number] [address] [place] [address] 30 Jan, 2016 [facility] [address] [id number] [address] [place] [address] Jan, [facility] [address] [id number] [address] [place] [address] Jan, Other chronic pain G89.29 [facility] [address] [id number] [address] [place] [address] 17 Jan, 2016 Hypertension I10 ; Coronary artery disease I25.10 and Insomnia G47.00 [facility] [address] [id number] [address] [place] [address] Jan, [facility] [address] [id number] [address] [place] [address] Dec, Right hip pain M25.551 [facility] [address] [id number] [address] [place] [address] Dec, [facility] [address] [id number] [address] [place] [address] Dec, [facility] [address] [id number] [address] [place] [address] Dec, [facility] [address] [id number] [address] [place] [address] Dec, Other chronic pain G89.29 [facility] [address] [id number] [address] [place] [address] Dec, [facility] [address] [id number] [address] [place] [address] Nov, [facility] [address] [id number] [address] [place] [address] Nov, Other chronic pain G89.29 [facility] [address] [id number] [address] [place] [address] Nov, Right hip pain M25.551 and C oronary artery disease I25.10 [facility] [address] [id number] [address] [place] [address] Nov, Other chronic pain G89.29 [facility] [address] [id number] [address] [place] [address] Oct, [facility] [address] [id number] [address] [place] [address] Oct, [facility] [address] [id number] [address] [place] [address] Sep, [facility] [address] [id number] [address] [place] [address] Sep, [facility] [address] [id number] [address] [place] [address] Aug, [facility] [address] [id number] [address] [place] [address] Aug, Hypertension I10 ; Coronary artery disease I25.10 and Arthritis M19.90 [facility] [address] [id number] [address] [place] [address] Jun, [facility] [address] [id number] [address] [place] [address] Jun, Essential hypertension, jayson gn 401.1 ; Other chronic pain 338.29 and Chronic airway obstruction, not elsewhere classified 496 [facility] [address] [id number] [address] [place] [address] Jun, [facility] [address] [id number] [address] [place] [address] Jun, [facility] [address] [id number] [address] [place] [address] Jun, [facility] [address] [id number] [address] [place] [address] May, [facility] [address] [id number] [address] [place] [address] May, [facility] [address] [id number] [address] [place] [address] Apr, [facility] [address] [id number] [address] [place] [address] Apr, [facility] [address] [id number] [address] [place] [address] Apr, [facility] [address] [id number] [address] [place] [id number] March, [facility] [address] [id number] [address] [place] [address] March, [facility] [address] [id number] [address] [place] [address], [place] [address] March, [facility] [address] [id number] [address] [place] [address], [place] [address] March, [facility] [address] [id number] [address] [place] [address], [place] [address] March, Sialadenitis 527.2 [facility] [address] [id number] [address] [place] [address], [place] [address] Feb, [facility] [address] [id number] [address] [place] [address], [place] [address] Feb, [facility] [address] [id number] [address] [place] [address], [place] [address] Feb, [facility] [address] [id number] [address] [place] [address], [place] [address] Feb, [facility] [address] [id number] [address] [place] [address], [place] [address] Feb, [facility] [address] [id number] [address] [place] [address], [place] [address] Jan, [facility] [address] [id number] [address] [place] [address], [place] [address] Jan, [facility] [address] [id number] [address] [place] [address], [place] [address] Jan, [facility] [address] [id number] [address] [place] [address], [place] [address] Jan, [facility] [address] [id number] [address] [place] [address], [place] [address] Jan, [facility] [address] [id number] [address] [place] [address], [place] [address] Jan, [facility] [address] [id number] [address] [place] [address], [place] [address] Dec, [facility] [address] [id number] [address] [place] [address], [place] [address] 23 Dec, 2014 [facility] [address] [id number] [address] [place] [address], [place] [address] Dec, [facility] [address] [id number] [address] [place] [address], [place] [address] Dec, 2014 [facility] [address] [id number] [address] [place] [address], [place] [address] Dec, [facility] [address] [id number] [address] [place] [address], [place] [address] Dec, [facility] [address] [id number] [address] [place] [address], [place] [address] Nov, [facility] [address] [id number] [address] [place] [address], [place] [address] Nov, [facility] [address] [id number] [address] [place] [address], [place] [address] Nov, [facility] [address] [id number] [address] [place] [address], [place] [address] Nov, [facility] [address] [id number] [address] [place] [address], [place] [address] Nov, [facility] [address] [id number] [address] [place] [address], [place] [address] Nov, [facility] [address] [id number] [address] [place] [address], [place] [address] Nov, [facility] [address] [id number] [address] [place] [address], [place] [address] Nov, [facility] [address] [id number] [address] [place] [address], [place] [address] Nov, [facility] [address] [id number] [address] [place] [address], [place] [address] Nov, [facility] [address] [id number] [address] [place] [address], [place] [address] Nov, [facility] [address] [id number] [address] [place] [address], [place] [address] Nov, [facility] [address] [id number] [address] [place] [address], [place] [address] Nov, [facility] [address] [id number] [address] [place] [address], [place] [address] Nov, [facility] [address] [id number] [address] [place] [address], [place] [address] Oct, [facility] [address] [id number] [address] [place] [address], [place] [address] Oct, [facility] [address] [id number] [address] [place] [address], [place] [address] Oct, [facility] [address] [id number] [address] [place] [address], [place] [address] Oct, [facility] [address] [id number] [address] [place] [address], [place] [address] Oct, [facility] [address] [id number] [address] [place] [address], [place] [address] Oct, [facility] [address] [id number] [address] [place] [address], [place] [address] Oct, [facility] [address] [id number] [address] [place] [address], [place] [address] Oct, [facility] [address] [id number] [address] [place] [address], [place] [address] Oct, [facility] [address] [id number] [address] [place] [address], [place] [address] Sep, [facility] [address] [id number] [address] [place] [address], [place] [address] Sep, [facility] [address] [id number] [address] [place] [address], [place] [address] Sep, [facility] [address] [id number] [address] [place] [address], [place] [address] Sep, [facility] [address] [id number] [address] [place] [address], [place] [address] Sep, [facility] [address] [id number] [address] [place] [address], [place] [address] Sep, [facility] [address] [id number] [address] [place] [address], [place] [address] Sep, [facility] [address] [id number] [address] [place] [address], [place] [address] Sep, [facility] [address] [id number] [address] [place] [address], [place] [address] Sep, [facility] [address] [id number] [address] [place] [address], [place] [address] Sep, [facility] [address] [id number] [address] [place] [address], [place] [address] Sep, [facility] [address] [id number] [address] [place] [address], [place] [address] Sep, [facility] [address] [id number] [address] [place] [address], [place] [address] Aug, [facility] [address] [id number] [address] [place] [address], [place] [address] Aug, [facility] [address] [id number] [address] [place] [address], [place] [address] Aug, [facility] [address] [id number] [address] [place] [address], [place] [address] Aug, [facility] [address] [id number] [address] [place] [address], [place] [address] Aug, [facility] [address] [id number] [address] [place] [address], [place] [address] Aug, [facility] [address] [id number] [address] [place] [address], [place] [address] Aug, [facility] [address] [id number] [address] [place] [address], [place] [address] 17 Aug, 2014 [facility] [address] [id number] [address] [place] [address], [place] [address] 30 Jul, 2013 [facility] [address] [id number] [address] [place] [address], [place] [address] 30 Jul, 2013 [facility] [address] [id number] [address] [place] [address], [place] [address] 30 Jul, 2013 [facility] [address] [id number] [address] [place] [address], [place] [address] 30 Jul, 2013 [facility] [address] [id number] [address] [place] [address], [place] [address] 25 Jul, 2013 [facility] [address] [id number] [address] [place] [address], [place] [address] 25 Jul, 2013 [facility] [address] [id number] [address] [place] [address], [place] [address] 15 Jul, 2014 [facility] [address] [id number] [address] [place] [address], [place] [address] 15 Jul, 2014 [facility] [address] [id number] [address] [place] [address], [place] [address] 11 Jul, 2014 [facility] [address] [id number] [address] [place] [address], [place] [address] Jul, [facility] [address] [id number] [address] [place] [address], [place] [address] Jun, [facility] [address] [id number] [address] [place] [address], [place] [address] Jun, [facility] [address] [id number] [address] [place] [address], [place] [address] Jun, [facility] [address] [id number] [address] [place] [address], [place] [address] Jun, [facility] [address] [id number] [address] [place] [address], [place] [address] Jun, [facility] [address] [id number] [facility] [address] Jun, [facility] [address] [id number] [address] [place] [address], [place] [address] Jun, [facility] [address] [id number] [address] [place] [address], [place] [address] Jun, [facility] [address] [id number] [address] [place] [address], [place] [address] Jun, [facility] [address] [id number] [address] [place] [address], [place] [address] Jun, [facility] [address] [id number] [address] [place] [address], [place] [address] Jun, [facility] [address] [id number] [address] [place] [address], [place] [address] Jun, [facility] [address] [id number] [address] [place] [address], [place] [address] Jun, [facility] [address] [id number] [address] [place] [address], [place] [address] Jun, [facility] [address] [id number] [address] [place] [address], [place] [address] Jun, [facility] [address] [id number] [address] [place] [address], [place] [address] Jun, [facility] [address] [id number] [address] [place] [address], [place] [address] Jun, [facility] [address] [id number] [address] [place] [address], [place] [address] Jun, [facility] [address] [id number] [address] [place] [address], [place] [address] Jun, [facility] [address] [id number] [address] [place] [address], [place] [address] Jun, [facility] [address] [id number] [facility] [place] [address] Jun, [facility] [address] [id number] [address] [place] [address], [place] [address] Jun, [facility] [address] [id number] [facility] [place] [address] May, [facility] [address] [id number] [address] [place] [address], [place] [address] May, [facility] [address] [id number] [address] [place] [address], [place] [address] May, [facility] [address] [id number] [address] [place] [address], [place] [address] May, [facility] [address] [id number] [address] [place] [address], [place] [address] May, [facility] [address] [id number] [address] [place] [address], [place] [address] May, [facility] [address] [id number] [address] [place] [address], [place] [address] May, [facility] [address] [id number] [address] [place] [address], [place] [address] May, [facility] [address] [id number] [address] [place] [address], [place] [address] May, [facility] [address] [id number] [address] [place] [address], [place] [address] May, [facility] [address] [id number] [address] [place] [address], [place] [address] May, [facility] [address] [id number] [address] [place] [address], [place] [address] May, [facility] [address] [id number] [address] [place] [address], [place] [address] May, [facility] [address] [id number] [address] [place] [address], [place] [address] Apr, [facility] [address] [id number] [facility] [address] Apr, [facility] [address] [id number] [facility] [address] Apr, [facility] [address] [id number] [facility] [place] [address] Apr, [facility] [address] [id number] [address] [place] [address], [place] [address] Apr, [facility] [address] [id number] [address] [place] [address], [place] [address] Apr, [facility] [address] [id number] [address] [place] [address], [place] [address] Apr, [facility] [address] [id number] [address] [place] [address], [place] [address] Apr, [facility] [address] [id number] [address] [place] [address], [place] [address] Apr, [facility] [address] [id number] [address] [place] [address], [place] [address] March, [facility] [address] [id number] [address] [place] [address], [place] [address] March, [facility] [address] [id number] [address] [place] [address], [place] [address] March, [facility] [address] [id number] [address] [place] [address], [place] [address] March, [facility] [address] [id number] [address] [place] [address], [place] [address] March, [facility] [address] [id number] [address] [place] [address], [place] [address] March, [facility] [address] [id number] [address] [place] [address], [place] [address] March, [facility] [address] [id number] [address] [place] [address], [place] [address] March, [facility] [address] [id number] [address] [place] [address], [place] [address] March, [facility] [address] [id number] [address] [place] [address], [place] [address] March, [facility] [address] [id number] [address] [place] [address], [place] [address] March, [facility] [address] [id number] [address] [place] [address], [place] [address] March, [facility] [address] [id number] [address] [place] [address], [place] [address] March, [facility] [address] [id number] [address] [place] [address], [place] [address] March, [facility] [address] [id number] [address] [place] [address], [place] [address] March, [facility] [address] [id number] [address] [place] [address], [place] [address] March, [facility] [address] [id number] [address] [place] [address], [place] [address] March, [facility] [address] [id number] [address] [place] [address], [place] [address] March, [facility] [address] [id number] [address] [place] [address], [place] [address] March, [facility] [address] [id number] [address] [place] [address], [place] [address] March, [facility] [address] [id number] [address] [place] [address], [place] [address] Feb, [facility] [address] [id number] [address] [place] [address], [place] [address] Feb, [facility] [address] [id number] [address] [place] [address], [place] [address] Feb, [facility] [address] [id number] [facility] [place] [address] 24 Feb, 2014 [facility] [address] [id number] [facility] [address] Feb, [facility] [address] [id number] [facility] [address] Feb, [facility] [address] [id number] [facility] [address] Feb, [facility] [address] [id number] [facility] [address] Feb, [facility] [address] [id number] [facility] [place] [address] Jan, [facility] [address] [id number] [address] [place] [address], [place] [address] Jan, [facility] [address] [id number] [address] [place] [address], [place] [address] Jan, [facility] [address] [id number] [address] [place] [address], [place] [address] 24 Jan, 2014 [facility] [address] [id number] [address] [place] [address], [place] [address] Jan, [facility] [address] [id number] [address] [place] [address], [place] [address] Jan, [facility] [address] [id number] [address] [place] [address], [place] [address] Jan, [facility] [address] [id number] [address] [place] [address], [place] [address] 11 Jan, 2014 [facility] [address] [id number] [address] [place] [address], [place] [address] 03 Jan, 2014 [facility] [address] [id number] [address] [place] [address], [place] [address] 03 Jan, 2014 [facility] [address] [id number] [address] [place] [address], [place] [address] Dec, [facility] [address] [id number] [facility] [address] Dec, [facility] [address] [id number] [address] [place] [address], [place] [address] Dec, [facility] [address] [id number] [address] [place] [address], [place] [address] Dec, [facility] [address] [id number] [address] [place] [address], [place] [address] Dec, [facility] [address] [id number] [address] [place] [address], [place] [address] Dec, [facility] [address] [id number] [address] [place] [address], [place] [address] Dec, [facility] [address] [id number] [address] [place] [address], [place] [address] Dec, [facility] [address] [id number] [address] [place] [address], [place] [address] Nov, [facility] [address] [id number] [address] [place] [address], [place] [address] Nov, [facility] [address] [id number] [address] [place] [address], [place] [address] Nov, [facility] [address] [id number] [address] [place] [address], [place] [address] Nov, [facility] [address] [id number] [address] [place] [address], [place] [address] Nov, [facility] [address] [id number] [address] [place] [address], [place] [address] Nov, [facility] [address] [id number] [address] [place] [address], [place] [address] Nov, [facility] [address] [id number] [address] [place] [address], [place] [address] Nov, [facility] [address] [id number] [address] [place] [address], [place] [address] Nov, [facility] [address] [id number] [address] [place] [address], [place] [address] Nov, [facility] [address] [id number] [address] [place] [address], [place] [address] Nov, [facility] [address] [id number] [address] [place] [address], [place] [address] Nov, [facility] [address] [id number] [address] [place] [address], [place] [address] Nov, [facility] [address] [id number] [address] [place] [address], [place] [address] Oct, [facility] [address] [id number] [address] [place] [address], [place] [address] Oct, [facility] [address] [id number] [address] [place] [address], [place] [address] Oct, [facility] [address] [id number] [address] [place] [address], [place] [address] Oct, [facility] [address] [id number] [address] [place] [address], [place] [address] Oct, [facility] [address] [id number] [address] [place] [address], [place] [address] Oct, [facility] [address] [id number] [address] [place] [address], [place] [address] Oct, [facility] [address] [id number] [address] [place] [address], [place] [address] 18 Oct, 2013 [facility] [address] [id number] [address] [place] [address], [place] [address] 17 Oct, 2013 [facility] [address] [id number] [address] [place] [address], [place] [address] 17 Oct, 2013 [facility] [address] [id number] [address] [place] [address] [address] Oct, [facility] [address] [id number] [address] [place] [address], [place] [address] Oct, [facility] [address] [id number] [address] [place] [address], [place] [address] Oct, [facility] [address] [id number] [address] [place] [address], [place] [address] Oct, [facility] [address] [id number] [address] [place] [address], [place] [address] Sep, [facility] [address] [id number] [address] [place] [address], [place] [address] Sep, [facility] [address] [id number] [address] [place] [address], [place] [address] Sep, [facility] [address] [id number] [address] [place] [address], [place] [address] Sep, [facility] [address] [id number] [address] [place] [address] Sep, [facility] [address] [id number] [address] [place] [address] Sep, [facility] [address] [id number] [address] [place] [address] Sep, [facility] [address] [id number] [address] [place] [address] Sep, [facility] [address] [id number] [address] [place] [address] Sep, [facility] [address] [id number] [address] [place] [address] Sep, [facility] [address] [id number] [address] [place] [address] Aug, [facility] [address] [id number] [address] [place] [address] Aug, [facility] [address] [id number] [address] [place] [address], [place] [address] 24 Aug, 2012 [facility] [address] [id number] [address] [place] [address], [place] [address] 24 Aug, 2012 [facility] [address] [id number] [address] [place] [address], [place] [address] Aug, 2012 [facility] [address] [id number] [address] [place] [address], [place] [address] 23 Aug, 2012 [facility] [address] [id number] [address] [place] [address], [place] [address] 23 Aug, 2012 [facility] [address] [id number] [address] [place] [address], [place] [address] Aug, 2012 [facility] [address] [id number] [address] [place] [address], [place] [address] Aug, [facility] [address] [id number] [address] [place] [address], [place] [address] Aug, 2012 [facility] [address] [id number] [address] [place] [address], [place] [address] 18 Aug, 2012 [facility] [address] [id number] [address] [place] [address], [place] [address] 18 Aug, 2012 [facility] [address] [id number] [address] [place] [address], [place] [address] 18 Aug, 2013 [facility] [address] [id number] [address] [place] [address], [place] [address] 18 Aug, 2012 [facility] [address] [id number] [address] [place] [address] 17 Aug, 2012 [facility] [address] [id number] [address] [place] [address], [place] [address] 14 Aug, 2012 [facility] [address] [id number] [address] [place] [address], [place] [address] 14 Aug, 2012 [facility] [address] [id number] [address] [place] [address] Aug, [facility] [address] [id number] [address] [place] [address], [place] [address] 20 Jul, 2013 [facility] [address] [id number] [address] [place] [address], [place] [address] 19 Jul, 2013 [facility] [address] [id number] [address] [place] [address], [place] [address] 18 Jul, 2013 [facility] [address] [id number] [address] [place] [address], [place] [address] Jul, [facility] [address] [id number] [address] [place] [address], [place] [address] Jul, [facility] [address] [id number] [address] [place] [address], [place] [address] Jun, [facility] [address] [id number] [address] [place] [address], [place] [address] Jun, [facility] [address] [id number] [address] [place] [address], [place] [address] Jun, [facility] [address] [id number] [address] [place] [address], [place] [address] Jun, [facility] [address] [id number] [address] [place] [address], [place] [address] Jun, [facility] [address] [id number] [address] [place] [address], [place] [address] Jun, [facility] [address] [id number] [address] [place] [address], [place] [address] Jun, [facility] [address] [id number] [address] [place] [address], [place] [address] Jun, [facility] [address] [id number] [address] [place] [address], [place] [address] Jun, [facility] [address] [id number] [address] [place] [address], [place] [address] Jun, [facility] [address] [id number] [address] [place] [address], [place] [address] May, [facility] [address] [id number] [facility] [address] May, [facility] [address] [id number] [address] [place] [address], [place] [address] May, [facility] [address] [id number] [address] [place] [address], [place] [address] May, [facility] [address] [id number] [address] [place] [address], [place] [address] May, [facility] [address] [id number] [address] [place] [address], [place] [address] May, [facility] [address] [id number] [address] [place] [address], [place] [address] May, [facility] [address] [id number] [address] [place] [address], [place] [address] May, [facility] [address] [id number] [address] [place] [address], [place] [address] May, [facility] [address] [id number] [address] [place] [address], [place] [address] Apr, [facility] [address] [id number] [address] [place] [address], [place] [address] Apr, [facility] [address] [id number] [address] [place] [address], [place] [address] Apr, [facility] [address] [id number] [address] [place] [address], [place] [address] Apr, [facility] [address] [id number] [address] [place] [address], [place] [address] Apr, [facility] [address] [id number] [address] [place] [address], [place] [address] Apr, [facility] [address] [id number] [address] [place] [address], [place] [address] Apr, [facility] [address] [id number] [facility] [place] [address] March, [facility] [address] [id number] [address] [place] [address], [place] [address] Feb, [facility] [address] [id number] [address] [place] [address], [place] [address] Feb, [facility] [address] [id number] [address] [place] [address], [place] [address] Feb, [facility] [address] [id number] [address] [place] [address], [place] [address] Jan, [facility] [address] [id number] [address] [place] [address], [place] [address] Jan, [facility] [address] [id number] [address] [place] [address], [place] [address] Jan, [facility] [address] [id number] [address] [place] [address], [place] [address] 14 Jan, 2013 [facility] [address] [id number] [address] [place] [address], [place] [address] Jan, [facility] [address] [id number] [address] [place] [address], [place] [address] 08 Jan, 2013 [facility] [address] [id number] [address] [place] [address], [place] [address] 07 Jan, 2013 [facility] [address] [id number] [address] [place] [address], [place] [address] 04 Jan, 2013 [facility] [address] [id number] [address] [place] [address], [place] [address] 28 Dec, 2012 [facility] [address] [id number] [address] [place] [address], [place] [address] Dec, [facility] [address] [id number] [address] [place] [address], [place] [address] 13 Dec, 2012 [facility] [address] [id number] [address] [place] [address], [place] [address] 11 Dec, 2012 [facility] [address] [id number] [address] [place] [address], [place] [address] 07 Dec, 2012 [facility] [address] [id number] [address] [place] [address], [place] [address] 06 Dec, 2012 [facility] [address] [id number] [address] [place] [address], [place] [address] 05 Dec, 2012 [facility] [address] [id number] [address] [place] [address], [place] [address] Nov, [facility] [address] [id number] [address] [place] [address], [place] [address] Nov, [facility] [address] [id number] [address] [place] [address], [place] [address] Nov, [facility] [address] [id number] [address] [place] [address], [place] [address] Nov, [facility] [address] [id number] [address] [place] [address], [place] [address] Nov, [facility] [address] [id number] [address] [place] [address], [place] [address] Nov, [facility] [address] [id number] [address] [place] [address], [place] [address] Nov, [facility] [address] [id number] [address] [place] [address], [place] [address] Oct, [facility] [address] [id number] [address] [place] [address], [place] [address] Oct, [facility] [address] [id number] [address] [place] [address], [place] [address] Oct, [facility] [address] [id number] [address] [place] [address], [place] [address] Oct, [facility] [address] [id number] [address] [place] [address], [place] [address] 17 Oct, 2012 [facility] [address] [id number] [address] [place] [address], [place] [address] Oct, [facility] [address] [id number] [address] [place] [address], [place] [address] Oct, [facility] [address] [id number] [address] [place] [address], [place] [address] Oct, [facility] [address] [id number] [address] [place] [address], [place] [address] Oct, [facility] [address] [id number] [address] [place] [address], [place] [address] Oct, [facility] [address] [id number] [address] [place] [address], [place] [address] Oct, [facility] [address] [id number] [address] [place] [address], [place] [address] Oct, [facility] [address] [id number] [address] [place] [address], [place] [address] Sep, [facility] [address] [id number] [address] [place] [address], [place] [address] Sep, [facility] [address] [id number] [address] [place] [address], [place] [address] Sep, [facility] [address] [id number] [address] [place] [address], [place] [address] Sep, [facility] [address] [id number] [address] [place] [address], [place] [address] Sep, [facility] [address] [id number] [address] [place] [address], [place] [address] Sep, [facility] [address] [id number] [address] [place] [address], [place] [address] Sep, [facility] [address] [id number] [address] [place] [address], [place] [address] Sep, [facility] [address] [id number] [address] [place] [address], [place] [address] Sep, [facility] [address] [id number] [address] [place] [address], [place] [address] Sep, [facility] [address] [id number] [address] [place] [address], [place] [address] Sep, [facility] [address] [id number] [address] [place] [address], [place] [address] Aug, [facility] [address] [id number] [address] [place] [address], [place] [address] Aug, [facility] [address] [id number] [address] [place] [address], [place] [address] Aug, [facility] [address] [id number] [address] [place] [address], [place] [address] Aug, [facility] [address] [id number] [address] [place] [address], [place] [address] Aug, [facility] [address] [id number] [address] [place] [address] Aug, [facility] [address] [id number] [address] [place] [address], [place] [address] Aug, [facility] [address] [id number] [address] [place] [address] Aug, [facility] [address] [id number] [address] [place] [address] Aug, [facility] [address] [id number] [address] [place] [address] Aug, [facility] [address] [id number] [address] [place] [address], [place] [address] Jul, [facility] [address] [id number] [address] [place] [id number] 20 Jul, 2012 [facility] [address] [id number] [address] [place] [id number] 10 Jul, 2012 [facility] [address] [id number] [address] [place] [address] Jul, [facility] [address] [id number] [address] [place] [address], [place] [address] Jun, [facility] [address] [id number] [address] [place] [address], [place] [address] Jun, [facility] [address] [id number] [address] [place] [address], [place] [address] Jun, [facility] [address] [id number] [address] [place] [address], [place] [address] Jun, [facility] [address] [id number] [address] [place] [address], [place] [address] Jun, [facility] [address] [id number] [address] [place] [address], [place] [address] Jun, [facility] [address] [id number] [address] [place] [address], [place] [address] Jun, [facility] [address] [id number] [address] [place] [address], [place] [address] May, [facility] [address] [id number] [address] [place] [address], [place] [address] May, [facility] [address] [id number] [address] [place] [address], [place] [address] May, [facility] [address] [id number] [address] [place] [address], [place] [address] May, [facility] [address] [id number] [address] [place] [address], [place] [address] May, [facility] [address] [id number] [address] [place] [address], [place] [address] Apr, [facility] [address] [id number] [address] [place] [address], [place] [address] Apr, [facility] [address] [id number] [address] [place] [address], [place] [address] Apr, [facility] [address] [id number] [address] [place] [address], [place] [address] Apr, [facility] [address] [id number] [address] [place] [address], [place] [address] Apr, [facility] [address] [id number] [address] [place] [address], [place] [address] March, [facility] [address] [id number] [address] [place] [address], [place] [address] March, [facility] [address] [id number] [address] [place] [address], [place] [address] March, [facility] [address] [id number] [address] [place] [address], [place] [address] March, [facility] [address] [id number] [address] [place] [address], [place] [address] March, [facility] [address] [id number] [address] [place] [address], [place] [address] March, [facility] [address] [id number] [address] [place] [address], [place] [address] March, [facility] [address] [id number] [address] [place] [address], [place] [address] March, [facility] [address] [id number] [address] [place] [address], [place] [address] March, [facility] [address] [id number] [address] [place] [address], [place] [address] March, [facility] [address] [id number] [address] [place] [address], [place] [address] Feb, [facility] [address] [id number] [address] [place] [address], [place] [address] Feb, [facility] [address] [id number] [address] [place] [address], [place] [address] Feb, [facility] [address] [id number] [address] [place] [address], [place] [address] Feb, [facility] [address] [id number] [facility] [address] Feb, [facility] [address] [id number] [address] [place] [address], [place] [address] Feb, [facility] [address] [id number] [address] [place] [address], [place] [address] Feb, [facility] [address] [id number] [address] [place] [address], [place] [address] Feb, [facility] [address] [id number] [address] [place] [address], [place] [address] Feb, [facility] [address] [id number] [address] [place] [address], [place] [address] 08 Jan, 2012 [facility] [address] [id number] [address] [place] [address], [place] [address] Jan, [facility] [address] [id number] [address] [place] [address], [place] [address] 05 Jan, 2012 [facility] [address] [address] [id number] [address] [place] [address], [place] [address] Jan, [facility] [address] [id number] [address] [place] [address], [place] [address] Dec, [facility] [address] [id number] [address] [place] [address], [place] [address] Dec, [facility] [address] [id number] [address] [place] [address], [place] [phone] Nov, [facility] [address] [id number] [address] [place] [address], [place] [address] Nov, [facility] [address] [id number] [address] [place] [address], [place] [address] 18 Nov, 2011 [facility] [address] [id number] [address] [place] [address], [place] [address] 16 Nov, 2011 [facility] [address] [id number] [address] [place] [phone] Nov, [facility] [address] [id number] [address] [place] [phone] Oct, [facility] [address] [id number] [address] [place] [phone] Oct, [facility] [address] [id number] [address] [place] [phone] Oct, [facility] [address] [id number] [address] [place] [phone] Oct, [facility] [address] [id number] [address] [place] [phone] Oct, [facility] [address] [id number] [address] [place] [phone] Oct, [facility] [address] [id number] [address] [place] [phone] Oct, [facility] [address] [id number] [address] [place] [phone] Oct, [facility] [address] [id number] [address] [place] [phone] Sep, IMMUNIZATIONS No Known Immunizations SOCIAL HISTORY Never Assessed REASON FOR VISIT PLAN OF CARE VITAL SIGNS Height 62 in 2013-11-09 Weight 176.5 lbs 2013-11-09 Temperature 98.6 degrees Fahrenheit 2013-11-09 Heart Rate 86 bpm 2013-11-09 Respiratory Rate 18 2013-11-09 Blood pressure systolic 128 mmHg 2013-11-09 Blood pressure diastolic 67 mmHg 2013-11-09 MEDICATIONS Unknown Medications RESULTS No Results PROCEDURES [...] History No Surgical history information Hospitalization History [facility]- Urosepsis, ab d pain and fever, discharged 11/27/2017 11/26/2017 Hospitalization History [facility]- Went Unrepsonsive, Hit head 2017 Hospitalization History [facility]- Back Pain 8
--- OUTSIDE RECORDS SUMMARY | 2020-06-18 15:47 | XMS REPORT ---
Author Author Sanjuanita Abdul Doctor Organization [facility] Address Unknown Phone Unavailable Care Team Providers Care Flue Cleaner Name Role Phone Migration, Doctor Unavailable Unavailable PROBLEMS Type Condition ICD9-CM Code JIL54-TW Code Onset Dates Condition S tatus SNOMED Code Problem Hypertension I10 Active 9160524 3 Problem Hyperlipidemia E78.5 Active 66525 004 Problem Coronary artery disease I25.10 Active 93172637 Problem Low back pain M54.5 Active 019723 009 Problem Other chronic pain G89.29 Active 8 9251951 Problem Ventral hernia without obstruction or gangrene K43 .9 Active 906998157 Problem Type 2 diabetes mellitus wit hout complication, without long-term current use of insulin E11.9 Active 624581809 Problem Anxiety F41.9 Active 09596697 Problem Peripheral vascular disease I73.9 Ac tive 678994928 Problem Insomnia G47.00 Active 221629573 Problem Microcytic anemia D50.9 Active 23 6841438 Problem Pharyngeal dysphagia R13.13 Active 43647280218743 Problem Other iron deficiency anemia D50.8 A ctive 33575572 Problem Reactive depression F32.9 Active 31589091 Problem Paroxysmal atrial fibrillation I48.0 Active 747690993 Problem Postmenopausal atrophic vaginitis N95.2 Active 26863139 Problem Encounter for suprapubic catheter care Z43.5 Active 488342185 Problem Neurogenic bladder N31.9 Active 3 52262986 ALLERGIES No Information ENCOUNTERS Encounter Location Date Diagnosis [facility] [address] [facility] [place] [id number] [address] [place] [phone] March, [facility] [address] [facility] [place] [id number] [address] [place] [id number] March, Anxiety F41.9 and Strain of right shoulder, subsequent encounter S46.911D [facility] [address] [facility] [place] [id number] [address] [place] [address] Feb, Anxiety F41.9 and Strain of right shoulder, subsequent encounter S46.911D [facility] [address] [id number] [address] [place] [phone] 24 Jan, 2020 Anxiety F41.9 and Strain of right shoulder, subsequent encounter S46.911D [facility] [address] [id number] [address] [place] [id number] 17 Jan, 2020 Via [facility] [address] [place] [id number] Jan, Neurogenic bladder N31.9 [facility] [address] [id number] [address] [place] [phone] Dec, 2019 [facility] [address] [id number] [address] [place] [phone] Dec, 2019 [place] [address] [id number] [address] [place] [id number] Dec, Anxiety F41.9 and Strain of right shoulder, subsequent encounter S46.911D [facility] [address] [id number] [address] [place] [phone] 10 Dec, 2019 Other iron deficiency anemia D50.8 [facility] [address] [id number] [address] [place] [phone] 04 Dec, 2019 Via [facility] [facility] [address] [place] [id number] Dec, Encounter for suprapubic catheter care Z 43.5 and Microcytic anemia D50.9 [facility] [address] [id number] [address] [place] [phone] 03 Dec, 2019 [facility] [address] [id number] [address] [place] [phone] Nov, Anxiety F41.9 and Strain of right shoulder, subsequent encounter S46.911D [facility] [address] [id number] [address] [place] [phone] Nov, Hypertension I10 [facility] [address] [place] [id number] Nov, Pneumonia of both lungs due to infectiou s organism, unspecified part of lung J18.9 and Suprapubic catheter Z93.59 [facility] [address] [id number] [address] [place] [phone] Nov, Hypertension I10 and Reactiv e depression F32.9 [facility] [address] [id number] [address] [place] [phone] Oct, Strain of right shoulder, scherer bsequent encounter S46.911D and Anxiety F41.9 [place] [address] [id number] [address] [place] [phone] Oct, Via [facility] [employer] [address] [place] [id number] Oct, Suprapubic catheter Z93.59 and Candidias is, intertriginous B37.2 [place] [address] [id number] [address] [place] [id number] Oct, Suprapubic catheter Z93.59 [facility] [address] [id number] [address] [place] [phone] Oct, Anxiety F41.9 and Strain of right shoulder, subsequent encounter S46.911D [facility] [address] [id number] [address] [place] [phone] Sep, [facility] [address] [id number] [address] [place] [address] Sep, [facility] [address] [id number] [address] [place] [phone] Sep, [facility] [address] [place] [id number] Sep, Suprapubic catheter Z93.59 [facility] [address] [id number] [address] [place] [id number] Sep, Anxiety F41.9 and Strain of right shoulder, subsequent encounter S46.911D [facility] [address] [id number] [address] [place] [phone] Aug, [facility] [address] [id number] [address] [place] [id number] Aug, [facility] [address] [id number] [address] [place] [address] Aug, Anxiety F41.9 and Strain of right shoulder, subsequent encounter S46.911D [facility] [address] [place] [id number] Aug, Suprapubic catheter Z93.59 [facility] [address] [id number] [address] [place] [address] Jul, Strain of right shoulder, scherer bsequent encounter S46.911D and Anxiety F41.9 [facility] [address] [id number] [address] [place] [id number] Jul, Anxiety F41.9 [facility] [address] [id number] [address] [place] [phone] Jun, [facility] [address] [id number] [address] [place] [id number] Jun, [facility] [address] [id number] [address] [place] [phone] Jun, [facility] [address] [id number] [address] [place] [id number] Jun, Strain of right shoulder, scherer bsequent encounter S46.911D [facility] [address] [id number] [address] [place] [phone] Jun, Strain of right shoulder, scherer bsequent encounter S46.911D [facility] [address] [id number] [address] [place] [id number] Jun, Anxiety F41.9 Via [facility] [address] [place] [id number] Jun, Neurogenic bladder N31.9 and Anxiety F41 .9 [facility] [address] [place] [id number] May, Anxiety F41.9 [place] [address] [id number] [address] [place] [address] May, Dysuria R30.0 [place] [address] [id number] [address] [place] [phone] May, Strain of right shoulder, scherer bsequent encounter S46.911D and Anxiety F41.9 [place] [address] [id number] [address] [place] [address] Apr, [facility] [address] [place] [id number] Apr, Strain of right shoulder, subsequent enc ounter S46.911D [place] [address] [facility] [place] [id number] [address] [place] [phone] 14 Apr, 2019 Strain of right shoulder, scherer bsequent encounter S46.911D and Anxiety F41.9 [facility] [employer] [address] [place] [id number] 13 Apr, 2019 Type 2 diabetes mellitus without complic ation, without long-term current use of insulin E11.9 and Neurogenic bladder N31.9 [facility] [employer] [address] [place] [id number] Apr, Strain of right shoulder, subsequent enc ounter S46.911D ; History of GI bleed Z87.19 ; Neurogenic bladder N31.9 and Reactive depression F32.9 [place] [address] [id number] [address] [place] [id number] 10 Apr, 2019 Acute pain of left shoulder M25.512 [place] [address] [id number] [address] [place] [id number] 07 Apr, 2019 [place] [address] [id number] [address] [place] [id number] 06 Apr, 2019 Anxiety F41.9 and 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 [facility] [address] [place] [id number] March, Gastrointestinal hemorrhage associated w ith acute gastritis K29.01 [facility] [address] [id number] [address] [place] [id number] March, Via [facility] [address] [place] [id number] March, Bronchitis J40 [facility] [address] [id number] [address] [place] [phone] March, Cough R05 [facility] [address] [id number] [address] [place] [id number] March, Other chronic pain G89.29 [facility] [address] [id number] [address] [place] [phone] March, Anxiety F41.9 [facility] [address] [id number] [address] [place] [phone] March, [facility] [address] [id number] [address] [place] [phone] Feb, Other chronic pain G89.29 [facility] [address] [id number] [address] [place] [id number] Feb, Anxiety F41.9 [facility] [address] [id number] [address] [place] [phone] Feb, Other chronic pain G89.29 Via [employer] [address] [place] [id number] Feb, Neurogenic bladder N31.9 and Suprapubic catheter Z93.59 [facility] [address] [id number] [address] [place] [phone] Jan, Anxiety F41.9 [facility] [address] [id number] [address] [place] [id number] Dec, Anxiety F41.9 [facility] [address] [id number] [address] [place] [id number] Dec, Other chronic pain G89.29 an d Anxiety F41.9 [facility] [address] [id number] [address] [place] [phone] Dec, Via [employer] [address] [place] [id number] Dec, Neurogenic bladder N31.9 and Suprapubic catheter Z93.59 [facility] [address] [id number] [address] [place] [phone] Nov, Other chronic pain G89.29 an d Anxiety F41.9 [facility] [address] [id number] [address] [place] [phone] Nov, Via [employer] [address] [place] [id number] Nov, Suprapubic catheter Z93.59 [facility] [address] [id number] [address] [place] [phone] Oct, Other chronic pain G89.29 an d Anxiety F41.9 [facility] [address] [id number] [address] [place] [id number] Oct, [facility] [address] [id number] [address] [place] [phone] Oct, Suprapubic catheter Z93.59 [facility] [address] [id number] [address] [place] [phone] Oct, Via [employer] [address] [place] [id number] Oct, [facility] [address] [id number] [address] [place] [phone] Oct, Anxiety F41.9 [facility] [address] [id number] [address] [place] [phone] Oct, Anxiety F41.9 Via [employer] [address] [place] [id number] Oct, Other chronic pain G89.29 [facility] [address] [id number] [address] [place] [id number] 14 Sep, 2018 Other chronic pain G89.29 Via [employer] [address] [place] [id number] Sep, Suprapubic catheter Z93.59 and Cervicalg ia M54.2 [facility] [address] [id number] [address] [place] [phone] Sep, [facility] [address] [id number] [address] [place] [phone] Sep, [facility] [address] [id number] [address] [place] [id number] Sep, Via [employer] [address] [place] [id number] Aug, Cystitis N30.90 [facility] [address] [id number] [address] [place] [id number] Aug, [facility] [address] [id number] [address] [place] [id number] Aug, Other chronic pain G89.29 [facility] [address] [id number] [address] [place] [phone] Aug, Via [employer] [address] [place] [id number] Aug, Encounter for suprapubic catheter care Z 43.5 [facility] [address] [id number] [address] [place] [phone] Jul, Via [employer] [address] [place] [id number] Jul, [facility] [address] [id number] [address] [place] [phone] Jul, Other chronic pain G89.29 [facility] [address] [id number] [address] [place] [phone] Jul, [facility] [address] [id number] [address] [place] [phone] Jul, Via [employer] [address] [place] [id number] Jun, Postmenopausal atrophic vaginitis N95.2 [place] [address] [id number] [address] [place] [phone] Jun, Other chronic pain G89.29 [place] [address] [id number] [address] [place] [address] Jun, Via [employer] [address] [place] [id number] May, Anxiety F41.9 ; Type 2 diabetes mellitus without complication, without long-term current use of insulin E11.9 ; Hypertension I10 ; Low back pain M54.5 ; Paroxysmal atrial fibrillation I48.0 and 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 [place] [address] [id number] [address] [place] [address] May, Other chronic pain G89.29 Via [employer] [address] [place] [id number] May, Low back pain M54.5 [place] [address] [id number] [address] [place] [id number] May, [place] [address] [id number] [address] [place] [address] Apr, Other chronic pain G89.29 [place] [address] [id number] [address] [place] [address] Apr, [place] [address] [id number] [address] [place] [address] Apr, Via [employer] [address] [place] [id number] Apr, Closed compression fracture of L3 lumbar vertebra with routine healing, subsequent encounter S32.030D [facility] [employer] [address] [place] [id number] Apr, Low back pain M54.5 [facility] [employer] [address] [place] [id number] Apr, Coccydynia M53.3 [facility] [address] [id number] [address] [place] [phone] March, [facility] [address] [id number] [address] [place] [phone] March, Other chronic pain G89.29 [facility] [address] [id number] [address] [place] [phone] March, [facility] [address] [id number] [address] [place] [id number] March, [facility] [address] [id number] [address] [place] [phone] Feb, [facility] [address] [id number] [address] [place] [address] Feb, Other chronic pain G89.29 Via [employer] [address] [place] [id number] Feb, Other chronic pain G89.29 and Anxiety F4 1.9 [facility] [address] [id number] [address] [place] [phone] Feb, [facility] [address] [id number] [address] [place] [phone] Jan, [facility] [address] [id number] [address] [place] [phone] Jan, [facility] [address] [id number] [address] [place] [phone] Jan, [facility] [address] [id number] [address] [place] [phone] Jan, [facility] [address] [id number] [address] [place] [phone] Dec, Via [employer] [address] [place] [id number] Dec, Peripheral vascular disease I73.9 ; 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 ; Other chronic pain G89.29 ; Anxiety F41.9 ; Reactive depression F32.9 ; Insomnia G47.00 and Type 2 diabetes mellitus without complication, without long-term current use of insulin E11.9 [facility] ADRIENNE SANCHEZ [id number] [address] Nov, [facility] [address] [id number] [place] [facility] [place] [place] [id number] Nov, Anxiety F41.9 [facility] [address] [facility] [place] [id number] [address] [place] [phone] Nov, [place] [address] [id number] [place] [facility] [place] [id number] Nov, Anxiety F41.9 [facility] [employer] [address] [place] [id number] Nov, Status post surgery Z98.890 ; Confused R 41.0 ; Anxiety F41.9 and Other chronic pain G89.29 [place] [address] [id number] [place] [id number] Nov, Other chronic pain G89.29 [place] [address] [facility] [place] [id number] [address] [place] [phone] Oct, [place] [address] [id number] [place] [id number] Oct, Other chronic pain G89.29 [place] [address] [facility] [place] [id number] [address] [place] [phone] Oct, Anxiety F41.9 [place] [address] [id number] [place] [id number] Sep, Other chronic pain G89.29 [place] [address] [id number] [place] [id number] Sep, Via [facility] [address] [place] [id number] Aug, Dysuria R30.0 and Anxiety F41.9 [place] [address] [id number] [address] [place] [id number] 16 Aug, 2017 [facility] [address] [id number] [place] [id number] Aug, Other chronic pain G89.29 [facility] [address] [id number] [address] [place] [phone] Jul, Other chronic pain G89.29 [facility] [address] [id number] [place] [id number] Jun, [facility] [address] [id number] [place] [id number] Jun, Other chronic pain G89.29 [facility] [address] [id number] [address] [place] [phone] Jun, [facility] [address] [facility] [place] [id number] [address] [place] [id number] May, Other chronic pain G89.29 [facility] [address] [id number] [address] [place] [phone] Apr, Other chronic pain G89.29 Via [facility] [address] [place] [id number] Apr, Reactive depression F32.9 and Pharyngeal dysphagia R13.13 [facility] [address] [facility] [place] [facility] [id number] [address] [place] [id number] Apr, Urinary tract infection with out hematuria, site unspecified N39.0 [facility] [address] [facility] [place] [facility] [id number] [address] [place] [phone] March, Other chronic pain G89.29 [facility] [address] [id number] [address] [place] [phone] Feb, Other chronic pain G89.29 [facility] [address] [id number] [address] [place] [phone] Feb, [facility] [address] [id number] [place] [id number] Feb, [facility] [address] [place] [id number] Feb, Dysuria R30.0 and Ventral hernia without obstruction or gangrene K43.9 [facility] [address] [id number] [address] [place] [phone] Jan, Other chronic pain G89.29 [facility] [address] [id number] [place] [id number] Dec, Other chronic pain G89.29 [facility] [address] [id number] [address] [place] [id number] Nov, Other chronic pain G89.29 [facility] [address] [place] [id number] Nov, Lymphadenitis I88.9 [facility] [address] [id number] [address] [place] [id number] Nov, Other chronic pain G89.29 [facility] [address] [id number] [address] [place] [phone] Nov, [facility] [address] [id number] [place] [id number] Nov, Other chronic pain G89.29 [facility] [address] [place] [id number] Oct, Low back pain M54.5 ; Hypertension I10 a nd Type 2 diabetes mellitus without complication, without long-term current use of insulin E11.9 [facility] [address] [id number] [address] [place] [id number] Oct, [facility] [address] [id number] [address] [place] [id number] Oct, [facility] [address] [id number] [address] [place] [id number] Oct, [facility] [address] [id number] [address] [place] [id number] Oct, [facility] [address] [id number] [address] [place] [id number] Sep, [facility] [facility] [address] [id number] [address] [place] [id number] Sep, [facility] [address] [id number] [address] [place] [phone] Aug, Other chronic pain G89.29 [facility] [address] [id number] [address] [place] [phone] Jul, [facility] [address] [id number] [address] [place] [phone] Jul, [facility] [address] [id number] [address] [place] [phone] Jul, [facility] [address] [id number] [address] [place] [phone] Jun, [facility] [address] [id number] [address] [place] [id number] Jun, [facility] [address] [place] [id number] Jun, Low back pain M54.5 ; Other chronic pain G89.29 and Coronary artery disease I25.10 [facility] [address] [id number] [address] [place] [id number] Jun, [facility] [address] [id number] [address] [place] [id number] May, [facility] [address] [id number] [address] [place] [id number] May, [facility] [address] [id number] [address] [place] [id number] May, Other chronic pain G89.29 [facility] [address] [id number] [address] [place] [id number] May, [facility] [address] [id number] [address] [place] [id number] 28 Apr, 2016 [facility] [address] [id number] [address] [place] [id number] 17 Apr, 2016 Acute cystitis without hemat uria N30.00 [facility] [address] [id number] [address] [place] [id number] 16 Apr, 2016 Acute cystitis without hemat uria N30.00 ; Coronary artery disease I25.10 ; Low back pain M54.5 and Other chronic pain G89.29 [facility] [address] [id number] [address] [place] [id number] 13 Apr, 2016 Other chronic pain G89.29 [facility] [address] [id number] [address] [place] [id number] March, Other chronic pain G89.29 [facility] [address] [id number] [address] [place] [phone] 18 Feb, 2016 [facility] [address] [id number] [address] [place] [id number] 15 Feb, 2016 Arthritis M19.90 [facility] [address] [id number] [address] [place] [phone] Feb, [facility] [address] [id number] [address] [place] [id number] 30 Jan, 2016 [facility] [address] [id number] [address] [place] [phone] Jan, [facility] [address] [id number] [address] [place] [phone] Jan, Other chronic pain G89.29 [facility] [address] [id number] [address] [place] [id number] Jan, Hypertension I10 ; Coronary artery disease I25.10 and Insomnia G47.00 [facility] [address] [id number] [address] [place] [phone] Jan, [facility] [address] [id number] [address] [place] [id number] Dec, Right hip pain M25.551 [facility] [address] [id number] [address] [place] [id number] Dec, [facility] [address] [id number] [address] [place] [id number] Dec, [facility] [address] [id number] [address] [place] [id number] Dec, [facility] [address] [id number] [address] [place] [id number] Dec, Other chronic pain G89.29 [facility] [address] [id number] [address] [place] [phone] Dec, [facility] [address] [id number] [address] [place] [phone] Nov, [facility] [address] [id number] [address] [place] [phone] Nov, Other chronic pain G89.29 [facility] [address] [id number] [address] [place] [id number] Nov, Right hip pain M25.551 and C oronary artery disease I25.10 [facility] [address] [id number] [address] [place] [id number] Nov, Other chronic pain G89.29 [facility] [address] [id number] [address] [place] [id number] Oct, [facility] [address] [id number] [address] [place] [phone] Oct, [facility] [address] [id number] [address] [place] [phone] Sep, [facility] [address] [id number] [address] [place] [id number] Sep, [facility] [address] [id number] [address] [place] [phone] Aug, [facility] [address] [id number] [address] [place] [id number] Aug, Hypertension I10 ; Coronary artery disease I25.10 and Arthritis M19.90 [facility] [address] [id number] [address] [place] [phone] Jun, [facility] [address] [id number] [address] [place] [id number] Jun, Essential hypertension, jayson gn 401.1 ; Other chronic pain 338.29 and Chronic airway obstruction, not elsewhere classified 496 [facility] [address] [id number] [address] [place] [phone] Jun, [facility] [address] [id number] [address] [place] [phone] Jun, [facility] [address] [id number] [address] [place] [phone] Jun, [facility] [address] [id number] [address] [place] [id number] May, [facility] [address] [id number] [address] [place] [phone] May, [facility] [address] [id number] [address] [place] [phone] Apr, [facility] [address] [id number] [address] [place] [id number] Apr, [facility] [address] [id number] [address] [place] [id number] Apr, [facility] [address] [id number] [address] [place] [phone] March, [facility] [address] [id number] [address] [place] [id number] March, [facility] [address] [id number] [address] [place] [phone] March, [facility] [address] [id number] [address] [place] [address], [place] [id number] March, [facility] [address] [id number] [address] [place] [address], [place] [id number] March, Sialadenitis 527.2 [facility] [address] [id number] [address] [place] [address], [place] [id number] Feb, [facility] [address] [id number] [address] [place] [address], [place] [id number] Feb, [facility] [address] [id number] [address] [place] [address], [place] [id number] Feb, [facility] [address] [id number] [address] [place] [address], [place] [id number] Feb, [facility] [address] [id number] [address] [place] [id number] Feb, [facility] [address] [id number] [address] [place] [address], [place] [id number] Jan, [facility] [address] [id number] [address] [place] [address], [place] [id number] Jan, [facility] [address] [id number] [address] [place] [address], [place] [id number] Jan, [facility] [address] [id number] [address] [place] [address], [place] [id number] Jan, [facility] [address] [id number] [address] [place] [id number] Jan, [facility] [address] [id number] [address] [place] [phone] Jan, [facility] [address] [id number] [address] [place] [address], [place] [id number] Dec, [facility] [address] [id number] [address] [place] [phone] Dec, [facility] [address] [id number] [address] [place] [address], [place] [id number] Dec, [facility] [address] [id number] [address] [place] [address], [place] [id number] Dec, [facility] [address] [id number] [address] [place] [address], [place] [id number] Dec, [facility] [address] [id number] [address] [place] [address], [place] [id number] Dec, [facility] [address] [id number] [address] [place] [address], [place] [id number] Nov, [facility] [address] [id number] [address] [place] [address], [place] [id number] Nov, [facility] [address] [id number] [address] [place] [address], [place] [id number] Nov, [facility] [address] [id number] [address] [place] [address], [place] [id number] Nov, [facility] [address] [id number] [address] [place] [address], [place] [phone] Nov, [facility] [address] [id number] [address] [place] [address], [place] [id number] Nov, [facility] [address] [id number] [address] [place] [address], [place] [id number] Nov, [facility] [address] [id number] [address] [place] [address], [place] [id number] Nov, [facility] [address] [id number] [address] [place] [address], [place] [id number] Nov, [facility] [address] [id number] [address] [place] [address], [place] [id number] Nov, [facility] [address] [id number] [address] [place] [address], [place] [id number] Nov, [facility] [address] [id number] [address] [place] [address], [place] [id number] Nov, [facility] [address] [id number] [address] [place] [address], [place] [id number] Nov, [facility] [address] [id number] [address] [place] [address], [place] [id number] Nov, [facility] [address] [id number] [address] [place] [address], [place] [id number] Oct, [facility] [address] [id number] [address] [place] [address], [place] [id number] Oct, [facility] [address] [id number] [address] [place] [address], [place] [id number] Oct, [facility] [address] [id number] [address] [place] [address], [place] [id number] Oct, [facility] [address] [id number] [address] [place] [address], [place] [id number] Oct, [facility] [address] [id number] [address] [place] [address], [place] [id number] Oct, [facility] [address] [id number] [address] [place] [address], [place] [id number] Oct, [facility] [address] [id number] [address] [place] [address], [place] [id number] Oct, [facility] [address] [id number] [address] [place] [address], [place] [id number] Oct, [facility] [address] [id number] [address] [place] [address], [place] [id number] Sep, [facility] [address] [id number] [address] [place] [address], [place] [id number] Sep, [facility] [address] [id number] [address] [place] [address], [place] [id number] Sep, [facility] [address] [id number] [address] [place] [address], [place] [id number] Sep, [facility] [address] [id number] [address] [place] [address], [place] [id number] Sep, [facility] [address] [id number] [address] [place] [address], [place] [id number] Sep, [facility] [address] [id number] [address] [place] [address], [place] [id number] Sep, [facility] [address] [id number] [address] [place] [address], [place] [id number] Sep, [facility] [address] [id number] [address] [place] [address], [place] [id number] Sep, [facility] [address] [id number] [address] [place] [address], [place] [id number] Sep, [facility] [address] [id number] [address] [place] [address], [place] [id number] Sep, [facility] [address] [id number] [address] [place] [address], [place] [id number] Sep, [facility] [address] [id number] [address] [place] [address], [place] [id number] Aug, [facility] [address] [id number] [address] [place] [address], [place] [id number] Aug, [facility] [address] [id number] [address] [place] [address], [place] [id number] Aug, [facility] [address] [id number] [address] [place] [address], [place] [id number] Aug, [facility] [address] [id number] [address] [place] [address], [place] [id number] Aug, [facility] [address] [id number] [address] [place] [address], [place] [id number] Aug, [facility] [address] [id number] [address] [place] [address], [place] [id number] Aug, [facility] [address] [id number] [address] [place] [address], [place] [id number] Aug, [facility] [address] [id number] [facility] [place] [id number] 30 Jul, 2013 [facility] [address] [id number] [address] [place] [address], [place] [id number] 30 Jul, 2013 [facility] [address] [id number] [address] [place] [address], [place] [id number] 30 Jul, 2013 [facility] [address] [id number] [address] [place] [address], [place] [id number] 30 Jul, 2013 [facility] [address] [id number] [address] [place] [address], [place] [id number] 25 Jul, 2013 [facility] [address] [id number] [address] [place] [address], [place] [id number] 25 Jul, 2013 [facility] [address] [id number] [address] [place] [address], [place] [id number] 15 Jul, 2014 [facility] [address] [id number] [address] [place] [address], [place] [id number] 15 Jul, 2014 [facility] [address] [id number] [address] [place] [address], [place] [id number] 11 Jul, 2014 [facility] [address] [id number] [address] [place] [address], [place] [id number] Jul, [facility] [address] [id number] [address] [place] [address], [place] [id number] Jun, [facility] [address] [id number] [address] [place] [address], [place] [id number] Jun, [facility] [address] [id number] [address] [place] [address], [place] [id number] Jun, [facility] [address] [id number] [address] [place] [address], [place] [id number] Jun, [facility] [address] [id number] [address] [place] [address], [place] [id number] Jun, [facility] [address] [id number] [address] [place] [address], [place] [id number] Jun, [facility] [address] [id number] [facility] [place] [id number] Jun, [facility] [address] [id number] [facility] [place] [id number] Jun, [facility] [address] [id number] [facility] [place] [id number] Jun, [facility] [address] [id number] [facility] [place] [id number] Jun, [facility] [address] [id number] [address] [place] [address], [place] [id number] Jun, [facility] [address] [id number] [address] [place] [address], [place] [id number] Jun, [facility] [address] [id number] [address] [place] [address], [place] [id number] Jun, [facility] [address] [id number] [address] [place] [address], [place] [id number] Jun, [facility] [address] [id number] [address] [place] [address], [place] [id number] Jun, [facility] [address] [id number] [address] [place] [address], [place] [id number] Jun, [facility] [address] [id number] [address] [place] [address], [place] [id number] Jun, [facility] [address] [id number] [address] [place] [address], [place] [id number] Jun, [facility] [address] [id number] [address] [place] [address], [place] [id number] Jun, [facility] [address] [id number] [address] [place] [address], [place] [id number] Jun, [facility] [address] [id number] [address] [place] [address], [place] [id number] Jun, [facility] [address] [id number] [facility] [address] Jun, [facility] [address] [id number] [facility] [place] [address] May, [facility] [address] [id number] [facility] [place] [address] May, [facility] [address] [id number] [address] [place] [address], [place] [address] May, [facility] [address] [id number] [address] [place] [address], [place] [address] May, [facility] [address] [id number] [address] [place] [address], [place] [id number] May, [facility] [address] [id number] [address] [place] [address], [place] [id number] May, [facility] [address] [id number] [address] [place] [address], [place] [id number] May, [facility] [address] [id number] [address] [place] [address], [place] [phone] May, [facility] [address] [id number] [address] [place] [address], [place] [id number] May, [facility] [address] [id number] [address] [place] [address], [place] [id number] May, [facility] [address] [id number] [address] [place] [address], [place] [id number] May, [facility] [address] [id number] [address] [place] [address], [place] [id number] May, [facility] [address] [id number] [address] [place] [address], [place] [id number] May, [facility] [address] [id number] [address] [place] [address], [place] [id number] Apr, [facility] [address] [id number] [address] [place] [address], [place] [id number] Apr, [facility] [address] [id number] [facility] [place] [id number] Apr, [facility] [address] [id number] [address] [place] [address], [place] [id number] Apr, [facility] [address] [id number] [facility] [place] [id number] Apr, [facility] [address] [id number] [address] [place] [address], [place] [id number] Apr, [facility] [address] [id number] [address] [place] [address], [place] [id number] Apr, [facility] [address] [id number] [address] [place] [address], [place] [id number] Apr, [facility] [address] [id number] [address] [place] [address], [place] [id number] Apr, [facility] [address] [id number] [address] [place] [address], [place] [id number] March, [facility] [address] [id number] [address] [place] [address], [place] [id number] March, [facility] [address] [id number] [address] [place] [address], [place] [id number] March, [facility] [address] [id number] [address] [place] [address], [place] [id number] March, [facility] [address] [id number] [address] [place] [address], [place] [id number] March, [facility] [address] [id number] [address] [place] [address], [place] [id number] March, [facility] [address] [id number] [address] [place] [address], [place] [id number] March, [facility] [address] [id number] [address] [place] [address], [place] [id number] March, [facility] [address] [id number] [address] [place] [address], [place] [id number] March, [facility] [address] [id number] [address] [place] [address], [place] [id number] March, [facility] [address] [id number] [address] [place] [address], [place] [id number] March, [facility] [address] [id number] [address] [place] [address], [place] [id number] March, [facility] [address] [id number] [address] [place] [address], [place] [id number] March, [facility] [address] [id number] [address] [place] [address], [place] [id number] March, [facility] [address] [id number] [address] [place] [address], [place] [id number] March, [facility] [address] [id number] [address] [place] [address], [place] [id number] March, [facility] [address] [id number] [address] [place] [address], [place] [id number] March, [facility] [address] [id number] [address] [place] [address], [place] [id number] March, [facility] [address] [id number] [address] [place] [address], [place] [id number] March, [facility] [address] [id number] [address] [place] [address], [place] [id number] March, [facility] [address] [id number] [address] [place] [address], [place] [id number] Feb, [facility] [address] [id number] [address] [place] [address], [place] [id number] Feb, [facility] [address] [id number] [address] [place] [address], [place] [id number] Feb, [facility] [address] [id number] [address] [place] [address], [place] [id number] Feb, [facility] [address] [id number] [facility] [place] [id number] Feb, [facility] [address] [id number] [address] [place] [address], [place] [id number] Feb, [facility] [address] [id number] [address] [place] [address], [place] [id number] Feb, [facility] [address] [id number] [address] [place] [address], [place] [id number] Feb, [facility] [address] [id number] [address] [place] [address], [place] [id number] Jan, [facility] [address] [id number] [address] [place] [address], [place] [id number] Jan, [facility] [address] [id number] [address] [place] [address], [place] [id number] Jan, [facility] [address] [id number] [address] [place] [address], [place] [id number] Jan, [facility] [address] [id number] [address] [place] [address], [place] [id number] Jan, [facility] [address] [id number] [address] [place] [address], [place] [id number] Jan, [facility] [address] [id number] [address] [place] [address], [place] [id number] Jan, [facility] [address] [id number] [address] [place] [address], [place] [id number] Jan, [facility] [address] [id number] [address] [place] [address], [place] [id number] Jan, [facility] [address] [id number] [address] [place] [address], [place] [id number] Jan, [facility] [address] [id number] [address] [place] [address], [place] [id number] Dec, [facility] [address] [id number] [address] [place] [address], [place] [id number] Dec, [facility] [address] [id number] [address] [place] [address], [place] [id number] Dec, [facility] [address] [id number] [address] [place] [address], [place] [id number] Dec, [facility] [address] [id number] [address] [place] [address], [place] [id number] Dec, [facility] [address] [id number] [address] [place] [address], [place] [id number] Dec, [facility] [address] [id number] [address] [place] [address], [place] [id number] Dec, [facility] [address] [id number] [address] [place] [address], [place] [id number] Dec, [facility] [address] [id number] [address] [place] [address], [place] [id number] Nov, [facility] [address] [id number] [address] [place] [address], [place] [id number] Nov, [facility] [address] [id number] [address] [place] [address], [place] [id number] Nov, [facility] [address] [id number] [address] [place] [address], [place] [id number] Nov, [facility] [address] [id number] [address] [place] [address], [place] [id number] Nov, [facility] [address] [id number] [address] [place] [address], [place] [id number] Nov, [facility] [address] [id number] [address] [place] [address], [place] [id number] Nov, [facility] [address] [id number] [address] [place] [address], [place] [id number] Nov, [facility] [address] [id number] [address] [place] [address], [place] [id number] Nov, [facility] [address] [id number] [address] [place] [address], [place] [id number] Nov, [facility] [address] [id number] [address] [place] [address], [place] [id number] Nov, [facility] [address] [id number] [address] [place] [address], [place] [id number] Nov, [facility] [address] [id number] [address] [place] [address], [place] [id number] Nov, [facility] [address] [id number] [address] [place] [address], [place] [id number] Oct, [facility] [address] [id number] [address] [place] [address], [place] [id number] Oct, [facility] [address] [id number] [address] [place] [address], [place] [id number] Oct, [facility] [address] [id number] [address] [place] [address], [place] [id number] Oct, [facility] [address] [id number] [address] [place] [address], [place] [id number] Oct, [facility] [address] [id number] [address] [place] [address], [place] [id number] Oct, [facility] [address] [id number] [address] [place] [address], [place] [id number] Oct, [facility] [address] [id number] [address] [place] [address], [place] [id number] Oct, [facility] [address] [id number] [address] [place] [address], [place] [id number] Oct, [facility] [address] [id number] [address] [place] [address], [place] [id number] Oct, [facility] [address] [id number] [address] [place] [address], [place] [id number] Oct, [facility] [address] [id number] [address] [place] [phone] Oct, [facility] [address] [id number] [address] [place] [address], [place] [id number] Oct, [facility] [address] [id number] [address] [place] [phone] Oct, [facility] [address] [id number] [address] [place] [id number] Sep, [facility] [address] [id number] [address] [place] [phone] Sep, [facility] [address] [id number] [address] [place] [address], [place] [id number] Sep, [facility] [address] [id number] [address] [place] [id number] Sep, [facility] [address] [id number] [address] [place] [phone] Sep, [facility] [address] [id number] [address] [place] [id number] Sep, [facility] [address] [id number] [address] [place] [phone] Sep, [facility] [address] [id number] [address] [place] [phone] Sep, [facility] [address] [id number] [address] [place] [phone] Sep, [facility] [address] [id number] [address] [place] [phone] Sep, [facility] [address] [id number] [address] [place] [phone] Aug, [facility] [address] [id number] [address] [place] [phone] Aug, [facility] [address] [id number] [address] [place] [phone] Aug, [facility] [address] [id number] [address] [place] [address], [place] [id number] 24 Aug, 2012 [facility] [address] [id number] [address] [place] [address], [place] [id number] 23 Aug, 2012 [facility] [address] [id number] [address] [place] [address], [place] [id number] 23 Aug, 2012 [facility] [address] [id number] [address] [place] [address], [place] [id number] 23 Aug, 2012 [facility] [address] [id number] [address] [place] [address], [place] [id number] 23 Aug, 2012 [facility] [address] [id number] [address] [place] [address], [place] [id number] Aug, 2012 [facility] [address] [id number] [address] [place] [address], [place] [id number] 22 Aug, 2012 [facility] [address] [id number] [address] [place] [address], [place] [id number] 18 Aug, 2012 [facility] [address] [id number] [address] [place] [address], [place] [id number] 18 Aug, 2013 [facility] [address] [id number] [address] [place] [address], [place] [id number] 18 Aug, 2012 [facility] [address] [id number] [address] [place] [address], [place] [id number] 18 Aug, 2013 [facility] [address] [id number] [address] [place] [address], [place] [id number] 17 Aug, 2012 [facility] [address] [id number] [address] [place] [address], [place] [id number] 14 Aug, 2013 [facility] [address] [id number] [address] [place] [address], [place] [id number] 14 Aug, 2013 [facility] [address] [id number] [address] [place] [address], [place] [id number] Aug, [facility] [address] [id number] [address] [place] [address], [place] [id number] 20 Jul, 2013 [facility] [address] [id number] [address] [place] [address], [place] [id number] 19 Jul, 2013 [facility] [address] [id number] [address] [place] [address], [place] [id number] 18 Jul, 2013 [facility] [address] [id number] [address] [place] [address], [place] [id number] 11 Jul, 2013 [facility] [address] [id number] [address] [place] [address], [place] [id number] 11 Jul, 2013 [facility] [address] [id number] [address] [place] [address], [place] [id number] Jun, [facility] [address] [id number] [address] [place] [address], [place] [id number] Jun, [facility] [address] [id number] [address] [place] [address], [place] [id number] Jun, [facility] [address] [id number] [address] [place] [address], [place] [id number] 15 Jun, 2013 [facility] [address] [id number] [address] [place] [address], [place] [id number] Jun, [facility] [address] [id number] [address] [place] [address], [place] [id number] Jun, [facility] [address] [id number] [address] [place] [address], [place] [id number] Jun, [facility] [address] [id number] [address] [place] [address], [place] [id number] Jun, [facility] [address] [id number] [address] [place] [address], [place] [id number] Jun, [facility] [address] [id number] [address] [place] [address], [place] [id number] Jun, [facility] [address] [id number] [address] [place] [address], [place] [id number] May, [facility] [address] [id number] [address] [place] [address], [place] [id number] May, [facility] [address] [id number] [address] [place] [address], [place] [id number] May, [facility] [address] [id number] [address] [place] [address], [place] [id number] May, [facility] [address] [id number] [address] [place] [address], [place] [id number] May, [facility] [address] [id number] [address] [place] [address], [place] [id number] May, [facility] [address] [id number] [address] [place] [address], [place] [id number] May, [facility] [address] [id number] [address] [place] [address], [place] [id number] May, [facility] [address] [id number] [address] [place] [address], [place] [id number] May, [facility] [address] [id number] [address] [place] [address], [place] [id number] Apr, [facility] [address] [id number] [address] [place] [address], [place] [id number] Apr, [facility] [address] [id number] [address] [place] [address], [place] [id number] Apr, [facility] [address] [id number] [address] [place] [address], [place] [id number] Apr, [facility] [address] [id number] [address] [place] [address], [place] [id number] Apr, [facility] [address] [id number] [address] [place] [address], [place] [id number] Apr, [facility] [address] [id number] [address] [place] [address], [place] [id number] Apr, [facility] [address] [id number] [address] [place] [address], [place] [id number] March, [facility] [address] [id number] [facility] [place] [id number] Feb, [facility] [address] [id number] [address] [place] [address], [place] [id number] Feb, [facility] [address] [id number] [address] [place] [address], [place] [id number] Feb, [facility] [address] [id number] [address] [place] [address], [place] [id number] 28 Jan, 2013 [facility] [address] [id number] [address] [place] [address], [place] [id number] Jan, [facility] [address] [id number] [address] [place] [address], [place] [id number] 19 Jan, 2013 [facility] [address] [id number] [address] [place] [address], [place] [id number] 14 Jan, 2013 [facility] [address] [id number] [address] [place] [address], [place] [id number] 12 Jan, 2013 [facility] [address] [id number] [address] [place] [address], [place] [id number] 08 Jan, 2013 [facility] [address] [id number] [address] [place] [address], [place] [id number] 07 Jan, 2013 [facility] [address] [id number] [address] [place] [address], [place] [id number] 04 Jan, 2013 [facility] [address] [id number] [address] [place] [address], [place] [id number] 28 Dec, 2012 [facility] [address] [id number] [address] [place] [address], [place] [id number] Dec, [facility] [address] [id number] [address] [place] [address], [place] [id number] 13 Dec, 2012 [facility] [address] [id number] [address] [place] [address], [place] [id number] Dec, [facility] [address] [id number] [address] [place] [address], [place] [id number] 07 Dec, 2012 [facility] [address] [id number] [address] [place] [address], [place] [id number] 06 Dec, 2012 [facility] [address] [id number] [address] [place] [address], [place] [id number] 05 Dec, 2012 [facility] [address] [id number] [address] [place] [address], [place] [id number] Nov, [facility] [address] [id number] [address] [place] [address], [place] [id number] 24 Nov, 2012 [facility] [address] [id number] [address] [place] [address], [place] [id number] 18 Nov, 2012 [facility] [address] [id number] [address] [place] [address], [place] [id number] 15 Nov, 2012 [facility] [address] [id number] [address] [place] [address], [place] [id number] Nov, [facility] [address] [id number] [address] [place] [address], [place] [id number] Nov, [facility] [address] [id number] [address] [place] [address], [place] [id number] Nov, [facility] [address] [id number] [address] [place] [address], [place] [id number] Oct, [facility] [address] [id number] [address] [place] [address], [place] [id number] 31 Oct, 2012 [facility] [address] [id number] [address] [place] [address], [place] [id number] Oct, [facility] [address] [id number] [address] [place] [address], [place] [id number] Oct, [facility] [address] [id number] [address] [place] [address], [place] [id number] Oct, [facility] [address] [id number] [address] [place] [address], [place] [id number] 17 Oct, 2012 [facility] [address] [id number] [address] [place] [address], [place] [id number] 07 Oct, 2012 [facility] [address] [id number] [address] [place] [address], [place] [id number] Oct, [facility] [address] [id number] [address] [place] [address], [place] [id number] Oct, [facility] [address] [id number] [address] [place] [address], [place] [id number] Oct, [facility] [address] [id number] [address] [place] [address], [place] [id number] Oct, [facility] [address] [id number] [address] [place] [address], [place] [id number] Oct, [facility] [address] [id number] [address] [place] [address], [place] [id number] Sep, [facility] [address] [id number] [address] [place] [address], [place] [id number] Sep, [facility] [address] [id number] [address] [place] [address], [place] [id number] Sep, [facility] [address] [id number] [address] [place] [address], [place] [id number] Sep, [facility] [address] [id number] [address] [place] [address], [place] [id number] Sep, [facility] [address] [id number] [address] [place] [address], [place] [id number] Sep, [facility] [address] [id number] [address] [place] [address], [place] [id number] Sep, [facility] [address] [id number] [address] [place] [address], [place] [id number] Sep, [facility] [address] [id number] [address] [place] [address], [place] [id number] Sep, [facility] [address] [id number] [address] [place] [address], [place] [id number] Sep, [facility] [address] [id number] [address] [place] [address], [place] [id number] Sep, [facility] [address] [id number] [address] [place] [address], [place] [id number] Aug, [facility] [address] [id number] [address] [place] [address], [place] [id number] Aug, [facility] [address] [id number] [address] [place] [address], [place] [id number] Aug, [facility] [address] [id number] [address] [place] [address], [place] [id number] Aug, [facility] [address] [id number] [address] [place] [address], [place] [id number] Aug, [facility] [address] [id number] [address] [place] [address], [place] [id number] Aug, [facility] [address] [id number] [address] [place] [id number] Aug, [facility] [address] [id number] [address] [place] [address], [place] [id number] Aug, [facility] [address] [id number] [address] [place] [id number] Aug, [facility] [address] [id number] [address] [place] [id number] Aug, [facility] [address] [id number] [address] [place] [id number] 22 Jul, 2012 [facility] [address] [id number] [address] [place] [address], [place] [id number] 20 Jul, 2011 [facility] [address] [id number] [address] [place] [id number] 10 Jul, 2011 [facility] [address] [id number] [address] [place] [id number] 06 Jul, 2012 [facility] [address] [id number] [address] [place] [address], [place] [id number] Jun, [facility] [address] [id number] [address] [place] [address], [place] [id number] Jun, [facility] [address] [id number] [address] [place] [address], [place] [id number] Jun, [facility] [address] [id number] [address] [place] [address], [place] [id number] Jun, [facility] [address] [id number] [address] [place] [address], [place] [id number] Jun, [facility] [address] [id number] [address] [place] [address], [place] [id number] Jun, [facility] [address] [id number] [address] [place] [address], [place] [id number] Jun, [facility] [address] [id number] [address] [place] [address], [place] [id number] May, [facility] [address] [id number] [address] [place] [address], [place] [id number] May, [facility] [address] [id number] [address] [place] [address], [place] [id number] May, [facility] [address] [id number] [address] [place] [address], [place] [id number] May, [facility] [address] [id number] [address] [place] [address], [place] [id number] May, [facility] [address] [id number] [address] [place] [address], [place] [id number] Apr, [facility] [address] [id number] [address] [place] [address], [place] [id number] Apr, [facility] [address] [id number] [address] [place] [address], [place] [id number] Apr, [facility] [address] [id number] [address] [place] [address], [place] [id number] Apr, [facility] [address] [id number] [address] [place] [address], [place] [id number] Apr, [facility] [address] [id number] [address] [place] [address], [place] [id number] March, [facility] [address] [id number] [address] [place] [address], [place] [id number] March, [facility] [address] [id number] [address] [place] [address], [place] [id number] March, [facility] [address] [id number] [address] [place] [address], [place] [id number] March, [facility] [address] [id number] [address] [place] [address], [place] [id number] March, [facility] [address] [id number] [address] [place] [address], [place] [id number] March, [facility] [address] [id number] [address] [place] [address], [place] [id number] March, [facility] [address] [id number] [address] [place] [address], [place] [id number] March, [facility] [address] [id number] [address] [place] [address], [place] [id number] March, [facility] [address] [id number] [address] [place] [address], [place] [id number] March, [facility] [address] [id number] [address] [place] [address], [place] [id number] Feb, [facility] [address] [id number] [address] [place] [address], [place] [id number] Feb, [facility] [address] [id number] [address] [place] [address], [place] [id number] Feb, [facility] [address] [id number] [address] [place] [address], [place] [id number] Feb, [facility] [address] [id number] [address] [place] [address], [place] [id number] Feb, [facility] [address] [id number] [address] [place] [address], [place] [id number] Feb, [facility] [address] [id number] [address] [place] [address], [place] [id number] Feb, [facility] [address] [address] [id number] [address] [place] [address], [place] [id number] Feb, [facility] [address] [id number] [address] [place] [address], [place] [id number] Feb, [facility] [address] [id number] [address] [place] [address], [place] [id number] Jan, [facility] [address] [id number] [address] [place] [address], [place] [id number] Jan, [facility] [address] [id number] [address] [place] [address], [place] [id number] Jan, [facility] [address] [id number] [address] [place] [address], [place] [id number] Jan, [facility] [address] [id number] [address] [place] [address], [place] [id number] Dec, [facility] [address] [id number] [address] [place] [address], [place] [id number] Dec, [facility] [address] [id number] [address] [place] [address], [place] [id number] Nov, [facility] [address] [id number] [address] [place] [address], [place] [id number] Nov, [facility] [address] [id number] [address] [place] [address], [place] [id number] Nov, [facility] [address] [id number] [address] [place] [address], [place] [id number] 16 Nov, 2011 [facility] [address] [id number] [address] [place] [address], [place] [id number] Nov, [facility] [address] [id number] [address] [place] [id number] Oct, [facility] [address] [id number] [address] [place] [id number] Oct, [facility] [address] [id number] [address] [place] [id number] Oct, [facility] [address] [id number] [address] [place] [phone] Oct, [facility] [address] [id number] [address] [place] [id number] Oct, [facility] [address] [id number] [address] [place] [id number] Oct, [facility] [address] [id number] [address] [place] [id number] Oct, [facility] [address] [id number] [address] [place] [id number] Oct, [facility] [address] [id number] [address] [place] [id number] Sep, IMMUNIZATIONS No Known Immunizations SOCIAL HISTORY Never Assessed REASON FOR VISIT PLAN OF CARE VITAL SIGNS MEDICATIONS Unknown Medications RESULTS No Results PROCEDURES Procedure Date Ordered Result Body Site ASSAY, GLUCOSE, BLOOD QUANT Aug 31, 2013 LIPID PANEL Aug 31, 2013 VENIPUNCT, ROUTINE* Aug 31, 2013 INSTRUCTIONS MEDICATIONS ADMINISTERED No Known Medications [...] History No Surgical history information Hospitalization History [facility]- Urosepsis, ab d pain and fever, discharged 11/27/2017 11/26/2017 Hospitalization History [facility]- Went Unrepsonsive, Hit head 2017 Hospitalization History [facility]- Back Pain 8
--- OUTSIDE RECORDS SUMMARY | 2020-06-18 15:48 | XMS REPORT ---
Author Author Sanjuanita Abdul Doctor Organization [facility] Address Unknown Phone Unavailable Care Team Providers Care Finished Stock Inspector Name Role Phone Migration, Doctor Unavailable Unavailable PROBLEMS Type Condition ICD9-CM Code WFL39-SN Code Onset Dates Condition S tatus SNOMED Code Problem Hypertension I10 Active 3214486 3 Problem Hyperlipidemia E78.5 Active 92603 004 Problem Coronary artery disease I25.10 Active 56285505 Problem Low back pain M54.5 Active 369327 009 Problem Other chronic pain G89.29 Active 8 7082460 Problem Ventral hernia without obstruction or gangrene K43 .9 Active 242408901 Problem Type 2 diabetes mellitus wit hout complication, without long-term current use of insulin E11.9 Active 514019867 Problem Anxiety F41.9 Active 76350286 Problem Peripheral vascular disease I73.9 Ac tive 049797057 Problem Insomnia G47.00 Active 855209162 Problem Microcytic anemia D50.9 Active 23 0468444 Problem Pharyngeal dysphagia R13.13 Active 76511919441704 Problem Other iron deficiency anemia D50.8 A ctive 73088948 Problem Reactive depression F32.9 Active 46873539 Problem Paroxysmal atrial fibrillation I48.0 Active 073672273 Problem Postmenopausal atrophic vaginitis N95.2 Active 51143973 Problem Encounter for suprapubic catheter care Z43.5 Active 496964380 Problem Neurogenic bladder N31.9 Active 3 [id number] ALLERGIES No Information ENCOUNTERS Encounter Location Date Diagnosis [facility] [address] [facility] [id number] [address] [place] [id number] March, [facility] [address] [facility] [id number] [address] [place] [id number] March, Anxiety F41.9 and Strain of right shoulder, subsequent encounter S46.911D [facility] [address] [facility] [id number] [address] [place] [id number] Feb, Anxiety F41.9 and Strain of right shoulder, subsequent encounter S46.911D [facility] [address] [id number] [address] [place] [id number] 24 Jan, 2020 Anxiety F41.9 and Strain of right shoulder, subsequent encounter S46.911D [facility] [address] [id number] [address] [place] [id number] 17 Jan, 2020 Via [facility] [employer] [address] [place] [id number] Jan, Neurogenic bladder N31.9 [facility] [address] [id number] [address] [place] [id number] Dec, 2019 [facility] [address] [id number] [address] [place] [id number] Dec, 2019 [place] [address] [id number] [address] [place] [id number] Dec, Anxiety F41.9 and Strain of right shoulder, subsequent encounter S46.911D [facility] [address] [id number] [address] [place] [id number] 10 Dec, 2019 Other iron deficiency anemia D50.8 [facility] [address] [id number] [address] [place] [id number] 04 Dec, 2019 Via [facility] [place] [employer] [address] [place] [id number] Dec, Encounter for suprapubic catheter care Z 43.5 and Microcytic anemia D50.9 [facility] [address] [id number] [address] [place] [id number] 03 Dec, 2019 [facility] [address] [id number] [address] [place] [address] Nov, Anxiety F41.9 and Strain of right shoulder, subsequent encounter S46.911D [facility] [address] [id number] [address] [place] [address] Nov, Hypertension I10 [facility] [address] [place] [id number] Nov, Pneumonia of both lungs due to infectiou s organism, unspecified part of lung J18.9 and Suprapubic catheter Z93.59 [facility] [address] [id number] [address] [place] [id number] Nov, Hypertension I10 and Reactiv e depression F32.9 [facility] [address] [id number] [address] [place] [id number] Oct, Strain of right shoulder, scherer bsequent encounter S46.911D and Anxiety F41.9 [place] [address] [id number] [address] [place] [id number] Oct, Via [facility] [address] [place] [id number] Oct, Suprapubic catheter Z93.59 and Candidias is, intertriginous B37.2 [place] [address] [id number] [address] [place] [id number] Oct, Suprapubic catheter Z93.59 [facility] [address] [id number] [address] [place] [id number] Oct, Anxiety F41.9 and Strain of right shoulder, subsequent encounter S46.911D [facility] [address] [id number] [address] [place] [id number] Sep, [facility] [address] [id number] [address] [place] [id number] Sep, [facility] [address] [id number] [address] [place] [id number] Sep, Via [facility] [address] [place] [id number] Sep, Suprapubic catheter Z93.59 [facility] [address] [id number] [address] [place] [address] Sep, Anxiety F41.9 and Strain of right shoulder, subsequent encounter S46.911D [facility] [address] [id number] [address] [place] [id number] Aug, [facility] [address] [id number] [address] [place] [id number] Aug, [facility] [address] [id number] [address] [place] [id number] Aug, Anxiety F41.9 and Strain of right shoulder, subsequent encounter S46.911D Via [facility] [address] [place] [id number] Aug, Suprapubic catheter Z93.59 [facility] [address] [id number] [address] [place] [address] Jul, Strain of right shoulder, scherer bsequent encounter S46.911D and Anxiety F41.9 [facility] [address] [id number] [address] [place] [id number] Jul, Anxiety F41.9 [facility] [address] [id number] [address] [place] [id number] Jun, [facility] [address] [id number] [address] [place] [id number] Jun, [facility] [address] [id number] [address] [place] [id number] Jun, [facility] [address] [id number] [address] [place] [address] Jun, Strain of right shoulder, scherer bsequent encounter S46.911D [facility] [address] [id number] [address] [place] [id number] Jun, Strain of right shoulder, scherer bsequent encounter S46.911D [facility] [address] [id number] [address] [place] [id number] Jun, Anxiety F41.9 Via [facility] [employer] [address] [place] [id number] Jun, Neurogenic bladder N31.9 and Anxiety F41 .9 Via [facility] [address] [place] [id number] May, Anxiety F41.9 [place] [address] [id number] [address] [place] [id number] May, Dysuria R30.0 [place] [address] [id number] [address] [place] [address] May, Strain of right shoulder, scherer bsequent encounter S46.911D and Anxiety F41.9 [place] [address] [id number] [address] [place] [address] Apr, [facility] [address] [place] [id number] Apr, Strain of right shoulder, subsequent enc ounter S46.911D [place] [address] [facility] [id number] [address] [place] [id number] 14 Apr, 2019 Strain of right shoulder, scherer bsequent encounter S46.911D and Anxiety F41.9 Via [facility] [employer] [address] [place] [id number] 13 Apr, 2019 Type 2 diabetes mellitus without complic ation, without long-term current use of insulin E11.9 and Neurogenic bladder N31.9 Via [facility] [employer] [address] [place] [id number] Apr, Strain of right shoulder, subsequent enc ounter S46.911D ; History of GI bleed Z87.19 ; Neurogenic bladder N31.9 and Reactive depression F32.9 [place] [address] [id number] [address] [place] [id number] 10 Apr, 2019 Acute pain of left shoulder M25.512 [place] [address] [id number] [address] [place] [id number] 07 Apr, 2019 [place] [address] [id number] [address] [place] [id number] 06 Apr, 2019 Anxiety F41.9 and Other tobacco feeder catcher 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 [facility] [address] [place] [id number] March, Gastrointestinal hemorrhage associated w ith acute gastritis K29.01 [facility] [address] [id number] [address] [place] [id number] March, Via [facility] [facility] [address] [place] [id number] March, Bronchitis J40 [facility] [address] [id number] [address] [place] [id number] March, Cough R05 [facility] [address] [id number] [address] [place] [address] March, Other chronic pain G89.29 [facility] [address] [id number] [address] [place] [id number] March, Anxiety F41.9 [facility] [address] [id number] [address] [place] [id number] March, [facility] [address] [id number] [address] [place] [address] Feb, Other chronic pain G89.29 [facility] [address] [id number] [address] [place] [id number] Feb, Anxiety F41.9 [facility] [address] [id number] [address] [place] [id number] Feb, Other chronic pain G89.29 Via [employer] [address] [place] [id number] Feb, Neurogenic bladder N31.9 and Suprapubic catheter Z93.59 [facility] [address] [id number] [address] [place] [id number] Jan, Anxiety F41.9 [facility] [address] [id number] [address] [place] [id number] Dec, Anxiety F41.9 [facility] [address] [id number] [address] [place] [id number] Dec, Other chronic pain G89.29 an d Anxiety F41.9 [facility] [address] [id number] [address] [place] [id number] Dec, Via [employer] [address] [place] [id number] Dec, Neurogenic bladder N31.9 and Suprapubic catheter Z93.59 [facility] [address] [id number] [address] [place] [id number] Nov, Other chronic pain G89.29 an d Anxiety F41.9 [facility] [address] [id number] [address] [place] [id number] Nov, Via [employer] [address] [place] [id number] Nov, Suprapubic catheter Z93.59 [facility] [address] [id number] [address] [place] [address] Oct, Other chronic pain G89.29 an d Anxiety F41.9 [facility] [address] [id number] [address] [place] [id number] Oct, [facility] [address] [id number] [address] [place] [id number] Oct, Suprapubic catheter Z93.59 [facility] [address] [id number] [address] [place] [id number] Oct, Via [employer] [address] [place] [id number] Oct, [facility] [address] [id number] [address] [place] [id number] Oct, Anxiety F41.9 [facility] [address] [id number] [address] [place] [id number] Oct, Anxiety F41.9 Via [employer] [facility] [address] [place] [id number] Oct, Other chronic pain G89.29 [facility] [address] [id number] [address] [place] [id number] 14 Sep, 2018 Other chronic pain G89.29 Via [employer] [address] [place] [id number] Sep, Suprapubic catheter Z93.59 and Cervicalg ia M54.2 [facility] [address] [id number] [address] [place] [id number] Sep, [facility] [address] [id number] [address] [place] [id number] Sep, [facility] [address] [id number] [address] [place] [id number] Sep, Via [employer] [address] [place] [id number] Aug, Cystitis N30.90 [facility] [address] [id number] [address] [place] [id number] Aug, [facility] [address] [id number] [address] [place] [id number] Aug, Other chronic pain G89.29 [facility] [address] [id number] [address] [place] [id number] Aug, Via [employer] [address] [place] [id number] Aug, Encounter for suprapubic catheter care Z 43.5 [facility] [address] [id number] [address] [place] [id number] Jul, Via [employer] [address] [place] [id number] Jul, [facility] [address] [id number] [address] [place] [id number] Jul, Other chronic pain G89.29 [facility] [address] [id number] [address] [place] [id number] Jul, [facility] [address] [id number] [address] [place] [id number] Jul, Via [employer] [address] [place] [id number] Jun, Postmenopausal atrophic vaginitis N95.2 [place] [address] [id number] [address] [place] [id number] Jun, Other chronic pain G89.29 [place] [address] [id number] [address] [place] [id number] Jun, Via [employer] [address] [place] [id number] May, Anxiety F41.9 ; Type 2 diabetes mellitus without complication, without long-term current use of insulin E11.9 ; Hypertension I10 ; Low back pain M54.5 ; Paroxysmal atrial fibrillation I48.0 and 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 [place] [address] [id number] [address] [place] [id number] May, Other chronic pain G89.29 Via [employer] [address] [place] [id number] May, Low back pain M54.5 [place] [address] [id number] [address] [place] [id number] May, [place] [address] [id number] [address] [place] [id number] Apr, Other chronic pain G89.29 [place] [address] [id number] [address] [place] [address] Apr, [place] [address] [id number] [address] [place] [id number] Apr, Via [employer] [address] [place] [id number] Apr, Closed compression fracture of L3 lumbar vertebra with routine healing, subsequent encounter S32.030D [facility] [employer] [address] [place] [id number] Apr, Low back pain M54.5 [facility] [employer] [address] [place] [id number] Apr, Coccydynia M53.3 [facility] [address] [id number] [address] [place] [id number] March, [facility] [address] [id number] [address] [place] [address] March, Other chronic pain G89.29 [facility] [address] [id number] [address] [place] [address] March, [facility] [address] [id number] [address] [place] [id number] March, [facility] [address] [id number] [address] [place] [id number] Feb, [facility] [address] [id number] [address] [place] [address] Feb, Other chronic pain G89.29 Via [employer] [address] [place] [id number] Feb, Other chronic pain G89.29 and Anxiety F4 1.9 [facility] [address] [id number] [address] [place] [id number] Feb, [facility] [address] [id number] [address] [place] [id number] Jan, [facility] [address] [id number] [address] [place] [id number] Jan, [facility] [address] [id number] [address] [place] [id number] Jan, [facility] [address] [id number] [address] [place] [address] Jan, [facility] [address] [id number] [address] [place] [address] Dec, Via [employer] [address] [place] [id number] Dec, Peripheral vascular disease I73.9 ; 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 [id number] [address] [place] [phone] Nov, [place] [address] [id number] [place] [id number] Nov, Anxiety F41.9 Via [employer] [address] [place] [id number] Nov, Status post surgery Z98.890 ; Confused R 41.0 ; Anxiety F41.9 and Other chronic pain G89.29 [place] [address] [id number] [place] [id number] Nov, Other chronic pain G89.29 [place] [address] [facility] [id number] [address] [place] [id number] Oct, [place] [address] [id number] [place] [id number] Oct, Other chronic pain G89.29 [place] [address] [facility] [id number] [address] [place] [address] Oct, Anxiety F41.9 [place] [address] [id number] [place] [id number] Sep, Other chronic pain G89.29 [place] [address] [id number] [place] [id number] Sep, [facility] [employer] [address] [place] [id number] Aug, Dysuria R30.0 and Anxiety F41.9 [place] [address] [id number] [address] [place] [id number] 16 Aug, 2017 [facility] [address] [id number] [place] [id number] Aug, Other chronic pain G89.29 [facility] [address] [id number] [address] [place] [id number] Jul, Other chronic pain G89.29 [facility] [address] [id number] [place] [id number] Jun, [facility] [address] [id number] [place] [id number] Jun, Other chronic pain G89.29 [facility] [address] [id number] [address] [place] [id number] Jun, [facility] [address] [facility] [id number] [address] [place] [address] May, Other chronic pain G89.29 [facility] [address] [id number] [address] [place] [address] Apr, Other chronic pain G89.29 Via [facility] [address] [place] [id number] Apr, Reactive depression F32.9 and Pharyngeal dysphagia R13.13 [facility] [address] [facility] [id number] [address] [place] [id number] Apr, Urinary tract infection with out hematuria, site unspecified N39.0 [facility] [address] [facility] [id number] [address] [place] [address] March, Other chronic pain G89.29 [facility] [address] [id number] [address] [place] [address] Feb, Other chronic pain G89.29 [facility] [address] [id number] [address] [place] [id number] Feb, [facility] [address] [id number] [place] [id number] Feb, [facility] [employer] [address] [place] [id number] Feb, Dysuria R30.0 and Ventral hernia without obstruction or gangrene K43.9 [facility] [address] [id number] [address] [place] [id number] Jan, Other chronic pain G89.29 [facility] [address] [id number] [place] [id number] Dec, Other chronic pain G89.29 [facility] [address] [id number] [address] [place] [id number] Nov, Other chronic pain G89.29 [facility] [address] [place] [id number] Nov, Lymphadenitis I88.9 [facility] [address] [id number] [address] [place] [id number] Nov, Other chronic pain G89.29 [facility] [address] [id number] [address] [place] [id number] Nov, [facility] [address] [id number] [place] [id number] Nov, Other chronic pain G89.29 Via [facility] [employer] [address] [place] [id number] Oct, Low back pain M54.5 ; Hypertension I10 a nd Type 2 diabetes mellitus without complication, without long-term current use of insulin E11.9 [facility] [address] [id number] [address] [place] [id number] Oct, [facility] [address] [id number] [address] [place] [id number] Oct, [facility] [address] [id number] [address] [place] [id number] Oct, [facility] [address] [id number] [address] [place] [id number] Oct, [facility] [address] [id number] [address] [place] [id number] Sep, [facility] [address] [id number] [address] [place] [id number] Sep, [facility] [address] [id number] [address] [place] [id number] Aug, Other chronic pain G89.29 [facility] [address] [id number] [address] [place] [id number] Jul, [facility] [address] [id number] [address] [place] [id number] Jul, [facility] [address] [id number] [address] [place] [id number] Jul, [facility] [address] [id number] [address] [place] [id number] Jun, [facility] [address] [id number] [address] [place] [id number] Jun, [facility] [address] [place] [id number] Jun, Low back pain M54.5 ; Other chronic pain G89.29 and Coronary artery disease I25.10 [facility] [address] [id number] [address] [place] [id number] Jun, [facility] [address] [id number] [address] [place] [id number] May, [facility] [address] [id number] [address] [place] [id number] May, [facility] [address] [id number] [address] [place] [id number] May, Other chronic pain G89.29 [facility] [address] [id number] [address] [place] [id number] May, [facility] [address] [id number] [address] [place] [id number] 28 Apr, 2016 [facility] [address] [id number] [address] [place] [id number] 17 Apr, 2016 Acute cystitis without hemat uria N30.00 [facility] [address] [id number] [address] [place] [id number] 16 Apr, 2016 Acute cystitis without hemat uria N30.00 ; Coronary artery disease I25.10 ; Low back pain M54.5 and Other chronic pain G89.29 [facility] [address] [id number] [address] [place] [id number] 13 Apr, 2016 Other chronic pain G89.29 [facility] [address] [id number] [address] [place] [id number] March, Other chronic pain G89.29 [facility] [address] [id number] [address] [place] [id number] 18 Feb, 2016 [facility] [address] [id number] [address] [place] [id number] 15 Feb, 2016 Arthritis M19.90 [facility] [address] [id number] [address] [place] [id number] Feb, [facility] [address] [id number] [address] [place] [id number] 30 Jan, 2016 [facility] [address] [id number] [address] [place] [id number] Jan, [facility] [address] [id number] [address] [place] [address] Jan, Other chronic pain G89.29 [facility] [address] [id number] [address] [place] [address] Jan, Hypertension I10 ; Coronary artery disease I25.10 and Insomnia G47.00 [facility] [address] [id number] [address] [place] [id number] Jan, [facility] [address] [id number] [address] [place] [address] Dec, Right hip pain M25.551 [facility] [address] [id number] [address] [place] [address] Dec, [facility] [address] [id number] [address] [place] [id number] Dec, [facility] [address] [id number] [address] [place] [address] Dec, [facility] [address] [id number] [address] [place] [id number] Dec, Other chronic pain G89.29 [facility] [address] [id number] [address] [place] [address] Dec, [facility] [address] [id number] [address] [place] [address] Nov, [facility] [address] [id number] [address] [place] [address] Nov, Other chronic pain G89.29 [facility] [address] [id number] [address] [place] [address] Nov, Right hip pain M25.551 and C oronary artery disease I25.10 [facility] [address] [id number] [address] [place] [id number] Nov, Other chronic pain G89.29 [facility] [address] [id number] [address] [place] [id number] Oct, [facility] [address] [id number] [address] [place] [id number] Oct, [facility] [address] [id number] [address] [place] [id number] Sep, [facility] [address] [id number] [address] [place] [id number] Sep, [facility] [address] [id number] [address] [place] [address] Aug, [facility] [address] [id number] [address] [place] [id number] Aug, Hypertension I10 ; Coronary artery disease I25.10 and Arthritis M19.90 [facility] [address] [id number] [address] [place] [id number] Jun, [facility] [address] [id number] [address] [place] [id number] Jun, Essential hypertension, jayson gn 401.1 ; Other chronic pain 338.29 and Chronic airway obstruction, not elsewhere classified 496 [facility] [address] [id number] [address] [place] [id number] Jun, [facility] [address] [id number] [address] [place] [address] Jun, [facility] [address] [id number] [address] [place] [id number] Jun, [facility] [address] [id number] [address] [place] [id number] May, [facility] [address] [id number] [address] [place] [address] May, [facility] [address] [id number] [address] [place] [id number] Apr, [facility] [address] [id number] [address] [place] [id number] Apr, [facility] [address] [id number] [address] [place] [id number] Apr, [facility] [address] [id number] [address] [place] [id number] March, [facility] [address] [id number] [address] [place] [id number] March, [facility] [address] [id number] [address] [place] [id number] March, [facility] [address] [id number] [address] [place] [address], [place] [address] March, [facility] [address] [id number] [address] [place] [address], [place] [address] March, Sialadenitis 527.2 [facility] [address] [id number] [address] [place] [address], [place] [address] Feb, [facility] [address] [id number] [address] [place] [address], [place] [address] Feb, [facility] [address] [id number] [address] [place] [address], [place] [address] Feb, [facility] [address] [id number] [address] [place] [address], [place] [address] Feb, [facility] [address] [id number] [address] [place] [id number] Feb, [facility] [address] [id number] [address] [place] [address], [place] [address] Jan, [facility] [address] [id number] [address] [place] [address], [place] [address] Jan, [facility] [address] [id number] [address] [place] [address], [place] [address] Jan, [facility] [address] [id number] [address] [place] [address], [place] [address] Jan, [facility] [address] [id number] [address] [place] [id number] Jan, [facility] [address] [id number] [address] [place] [id number] Jan, [facility] [address] [id number] [address] [place] [address], [place] [address] Dec, [facility] [address] [id number] [address] [place] [id number] Dec, [facility] [address] [id number] [address] [place] [address], [place] [address] Dec, [facility] [address] [id number] [address] [place] [address], [place] [address] Dec, [facility] [address] [id number] [address] [place] [address], [place] [address] Dec, [facility] [address] [id number] [address] [place] [address], [place] [address] Dec, [facility] [address] [id number] [address] [place] [address], [place] [address] Nov, [facility] [address] [id number] [address] [place] [address], [place] [address] Nov, [facility] [address] [id number] [address] [place] [address], [place] [address] Nov, [facility] [address] [id number] [address] [place] [address], [place] [address] Nov, [facility] [address] [id number] [address] [place] [address], [place] [address] Nov, [facility] [address] [id number] [address] [place] [address], [place] [address] Nov, [facility] [address] [id number] [address] [place] [address], [place] [address] Nov, [facility] [address] [id number] [address] [place] [address], [place] [address] Nov, [facility] [address] [id number] [address] [place] [address], [place] [address] Nov, [facility] [address] [id number] [address] [place] [address], [place] [address] Nov, [facility] [address] [id number] [address] [place] [address], [place] [address] Nov, [facility] [address] [id number] [address] [place] [address], [place] [address] Nov, [facility] [address] [id number] [address] [place] [address], [place] [address] Nov, [facility] [address] [id number] [address] [place] [address], [place] [address] Nov, [facility] [address] [id number] [address] [place] [address], [place] [address] Oct, [facility] [address] [id number] [address] [place] [address], [place] [address] Oct, [facility] [address] [id number] [address] [place] [address], [place] [address] Oct, [facility] [address] [id number] [address] [place] [address], [place] [address] Oct, [facility] [address] [id number] [address] [place] [address], [place] [address] Oct, [facility] [address] [id number] [address] [place] [address], [place] [address] Oct, [facility] [address] [id number] [address] [place] [address], [place] [address] Oct, [facility] [address] [id number] [address] [place] [address], [place] [address] Oct, [facility] [address] [id number] [address] [place] [address], [place] [address] Oct, [facility] [address] [id number] [address] [place] [address], [place] [address] Sep, [facility] [address] [id number] [address] [place] [address], [place] [address] Sep, [facility] [address] [id number] [address] [place] [address], [place] [address] Sep, [facility] [address] [id number] [address] [place] [address], [place] [address] Sep, [facility] [address] [id number] [address] [place] [address], [place] [address] Sep, [facility] [address] [id number] [address] [place] [address], [place] [address] Sep, [facility] [address] [id number] [address] [place] [address], [place] [address] Sep, [facility] [address] [id number] [address] [place] [address], [place] [address] Sep, [facility] [address] [id number] [address] [place] [address], [place] [address] Sep, [facility] [address] [id number] [address] [place] [address], [place] [address] Sep, [facility] [address] [id number] [address] [place] [address], [place] [address] Sep, [facility] [address] [id number] [address] [place] [address], [place] [address] Sep, [facility] [address] [id number] [address] [place] [address], [place] [address] Aug, [facility] [address] [id number] [address] [place] [address], [place] [address] Aug, [facility] [address] [id number] [address] [place] [address], [place] [address] Aug, [facility] [address] [id number] [address] [place] [address], [place] [address] Aug, [facility] [address] [id number] [address] [place] [address], [place] [address] Aug, [facility] [address] [id number] [address] [place] [address], [place] [address] Aug, [facility] [address] [id number] [address] [place] [address], [place] [address] Aug, [facility] [address] [id number] [address] [place] [address], [place] [address] Aug, [facility] [address] [id number] [facility] [place] [address] 30 Jul, 2013 [facility] [address] [id number] [address] [place] [address], [place] [address] 30 Jul, 2013 [facility] [address] [id number] [address] [place] [address], [place] [address] 30 Jul, 2013 [facility] [address] [id number] [address] [place] [address], [place] [address] 30 Jul, 2013 [facility] [address] [id number] [address] [place] [address], [place] [address] 25 Jul, 2013 [facility] [address] [id number] [address] [place] [address], [place] [address] 25 Jul, 2013 [facility] [address] [id number] [address] [place] [address], [place] [address] 15 Jul, 2014 [facility] [address] [id number] [address] [place] [address], [place] [address] 15 Jul, 2014 [facility] [address] [id number] [address] [place] [address], [place] [address] 11 Jul, 2014 [facility] [address] [id number] [address] [place] [address], [place] [address] Jul, [facility] [address] [id number] [address] [place] [address], [place] [address] Jun, [facility] [address] [id number] [address] [place] [address], [place] [address] Jun, [facility] [address] [id number] [address] [place] [address], [place] [address] Jun, [facility] [address] [id number] [address] [place] [address], [place] [address] Jun, [facility] [address] [id number] [address] [place] [address], [place] [address] Jun, [facility] [address] [id number] [address] [place] [address], [place] [address] Jun, [facility] [address] [id number] [facility] [place] [address] Jun, [facility] [address] [id number] [facility] [place] [address] Jun, [facility] [address] [id number] [facility] [place] [address] Jun, [facility] [address] [id number] [facility] [place] [address] Jun, [facility] [address] [id number] [address] [place] [address], [place] [address] Jun, [facility] [address] [id number] [address] [place] [address], [place] [address] Jun, [facility] [address] [id number] [address] [place] [address], [place] [address] Jun, [facility] [address] [id number] [address] [place] [address], [place] [address] Jun, [facility] [address] [id number] [address] [place] [address], [place] [address] Jun, [facility] [address] [id number] [address] [place] [address], [place] [address] Jun, [facility] [address] [id number] [address] [place] [address], [place] [address] Jun, [facility] [address] [id number] [address] [place] [address], [place] [address] Jun, [facility] [address] [id number] [address] [place] [address], [place] [address] Jun, [facility] [address] [id number] [address] [place] [address], [place] [address] Jun, [facility] [address] [id number] [address] [place] [address], [place] [address] Jun, [facility] [address] [id number] [facility] [place] [address] Jun, [facility] [address] [id number] [facility] [place] [address] May, [facility] [address] [id number] [facility] [place] [address] May, [facility] [address] [id number] [address] [place] [address], [place] [address] May, [facility] [address] [id number] [address] [place] [address], [place] [address] May, [facility] [address] [id number] [address] [place] [address], [place] [address] May, [facility] [address] [id number] [address] [place] [address], [place] [address] May, [facility] [address] [id number] [address] [place] [address], [place] [address] May, [facility] [address] [id number] [address] [place] [address], [place] [address] May, [facility] [address] [id number] [address] [place] [address], [place] [address] May, [facility] [address] [id number] [address] [place] [address], [place] [address] May, [facility] [address] [id number] [address] [place] [address], [place] [address] May, [facility] [address] [id number] [address] [place] [address], [place] [address] May, [facility] [address] [id number] [address] [place] [address], [place] [address] May, [facility] [address] [id number] [address] [place] [address], [place] [address] Apr, [facility] [address] [id number] [address] [place] [address], [place] [address] Apr, [facility] [address] [id number] [facility] [place] [address] Apr, [facility] [address] [id number] [address] [place] [address], [place] [address] Apr, [facility] [address] [id number] [facility] [place] [address] Apr, [facility] [address] [id number] [address] [place] [address], [place] [address] Apr, [facility] [address] [id number] [address] [place] [address], [place] [address] Apr, [facility] [address] [id number] [address] [place] [address], [place] [address] Apr, [facility] [address] [id number] [address] [place] [address], [place] [address] Apr, [facility] [address] [id number] [address] [place] [address], [place] [address] March, [facility] [address] [id number] [address] [place] [address], [place] [address] March, [facility] [address] [id number] [address] [place] [address], [place] [address] March, [facility] [address] [id number] [address] [place] [address], [place] [address] March, [facility] [address] [id number] [address] [place] [address], [place] [address] March, [facility] [address] [id number] [address] [place] [address], [place] [address] March, [facility] [address] [id number] [address] [place] [address], [place] [address] March, [facility] [address] [id number] [address] [place] [address], [place] [address] March, [facility] [address] [id number] [address] [place] [address], [place] [address] March, [facility] [address] [id number] [address] [place] [address], [place] [address] March, [facility] [address] [id number] [address] [place] [address], [place] [address] March, [facility] [address] [id number] [address] [place] [address], [place] [address] March, [facility] [address] [id number] [address] [place] [address], [place] [address] March, [facility] [address] [id number] [address] [place] [address], [place] [id number] March, [facility] [address] [id number] [address] [place] [address], [place] [id number] March, [facility] [address] [id number] [address] [place] [address], [place] [id number] March, [facility] [address] [id number] [address] [place] [address], [place] [id number] March, [facility] [address] [id number] [address] [place] [address], [place] [id number] March, [facility] [address] [id number] [address] [place] [address], [place] [id number] March, [facility] [address] [id number] [address] [place] [address], [place] [id number] March, [facility] [address] [id number] [address] [place] [address], [place] [id number] Feb, [facility] [address] [id number] [address] [place] [address], [place] [id number] Feb, [facility] [address] [id number] [address] [place] [address], [place] [address] Feb, [facility] [address] [id number] [address] [place] [address], [place] [id number] Feb, [facility] [address] [id number] [facility] [id number] Feb, [facility] [address] [id number] [address] [place] [address], [place] [id number] Feb, [facility] [address] [id number] [address] [place] [address], [place] [id number] Feb, [facility] [address] [id number] [address] [place] [address], [place] [id number] Feb, [facility] [address] [id number] [address] [place] [address], [place] [address] Jan, [facility] [address] [id number] [address] [place] [address], [place] [address] Jan, [facility] [address] [id number] [address] [place] [address], [place] [id number] Jan, [facility] [address] [id number] [address] [place] [address], [place] [address] Jan, [facility] [address] [id number] [address] [place] [address], [place] [id number] Jan, [facility] [address] [id number] [address] [place] [address], [place] [id number] Jan, [facility] [address] [id number] [address] [place] [address], [place] [address] Jan, [facility] [address] [id number] [address] [place] [address], [place] [address] Jan, [facility] [address] [id number] [address] [place] [address], [place] [id number] Jan, [facility] [address] [id number] [address] [place] [address], [place] [id number] Jan, [facility] [address] [id number] [address] [place] [address], [place] [address] Dec, [facility] [address] [id number] [address] [place] [address], [place] [id number] Dec, [facility] [address] [id number] [address] [place] [address], [place] [id number] Dec, [facility] [address] [id number] [address] [place] [address], [place] [id number] Dec, [facility] [address] [id number] [address] [place] [address], [place] [address] Dec, [facility] [address] [id number] [address] [place] [address], [place] [id number] Dec, [facility] [address] [id number] [address] [place] [address], [place] [id number] Dec, [facility] [address] [id number] [address] [place] [address], [place] [id number] Dec, [facility] [address] [id number] [address] [place] [address], [place] [id number] Nov, [facility] [address] [id number] [address] [place] [address], [place] [id number] Nov, [facility] [address] [id number] [address] [place] [address], [place] [id number] Nov, [facility] [address] [id number] [address] [place] [address], [place] [address] Nov, [facility] [address] [id number] [address] [place] [address], [place] [address] Nov, [facility] [address] [id number] [address] [place] [address], [place] [address] Nov, [facility] [address] [id number] [address] [place] [address], [place] [address] Nov, [facility] [address] [id number] [address] [place] [address], [place] [id number] Nov, [facility] [address] [id number] [address] [place] [address], [place] [id number] Nov, [facility] [address] [id number] [address] [place] [address], [place] [id number] Nov, [facility] [address] [id number] [address] [place] [address], [place] [address] Nov, [facility] [address] [id number] [address] [place] [address], [place] [id number] Nov, [facility] [address] [id number] [address] [place] [address], [place] [address] Nov, [facility] [address] [id number] [address] [place] [address], [place] [id number] Oct, [facility] [address] [id number] [address] [place] [address], [place] [address] Oct, [facility] [address] [id number] [address] [place] [address], [place] [id number] Oct, [facility] [address] [id number] [address] [place] [address], [place] [id number] Oct, [facility] [address] [id number] [address] [place] [address], [place] [address] Oct, [facility] [address] [id number] [address] [place] [address], [place] [id number] Oct, [facility] [address] [id number] [address] [place] [address], [place] [id number] Oct, [facility] [address] [id number] [address] [place] [address], [place] [id number] Oct, [facility] [address] [id number] [address] [place] [address], [place] [address] Oct, [facility] [address] [id number] [address] [place] [address], [place] [id number] Oct, [facility] [address] [id number] [address] [place] [address], [place] [id number] Oct, [facility] [address] [id number] [address] [place] [id number] Oct, [facility] [address] [id number] [address] [place] [address], [place] [id number] Oct, [facility] [address] [id number] [address] [place] [id number] Oct, [facility] [address] [id number] [address] [place] [id number] Sep, [facility] [address] [id number] [address] [place] [id number] Sep, [facility] [address] [id number] [address] [place] [address], [place] [address] Sep, [facility] [address] [id number] [address] [place] [id number] Sep, [facility] [address] [id number] [address] [place] [id number] Sep, [facility] [address] [id number] [address] [place] [id number] Sep, [facility] [address] [id number] [address] [place] [id number] Sep, [facility] [address] [id number] [address] [place] [id number] Sep, [facility] [address] [id number] [address] [place] [id number] Sep, [facility] [address] [id number] [address] [place] [id number] Sep, [facility] [address] [id number] [address] [place] [id number] Aug, [facility] [address] [id number] [address] [place] [id number] Aug, [facility] [address] [id number] [address] [place] [id number] Aug, [facility] [address] [id number] [address] [place] [address], [place] [id number] 24 Aug, 2012 [facility] [address] [id number] [address] [place] [address], [place] [id number] 23 Aug, 2012 [facility] [address] [id number] [address] [place] [address], [place] [id number] 23 Aug, 2012 [facility] [address] [id number] [address] [place] [address], [place] [id number] 23 Aug, 2012 [facility] [address] [id number] [address] [place] [address], [place] [address] 23 Aug, 2012 [facility] [address] [id number] [address] [place] [address], [place] [address] Aug, 2012 [facility] [address] [id number] [address] [place] [address], [place] [address] 22 Aug, 2012 [facility] [address] [id number] [address] [place] [address], [place] [id number] 18 Aug, 2012 [facility] [address] [id number] [address] [place] [address], [place] [address] 18 Aug, 2013 [facility] [address] [id number] [address] [place] [address], [place] [id number] 18 Aug, 2012 [facility] [address] [id number] [address] [place] [address], [place] [id number] 18 Aug, 2013 [facility] [address] [id number] [address] [place] [address], [place] [id number] 17 Aug, 2012 [facility] [address] [id number] [address] [place] [address], [place] [id number] 14 Aug, 2013 [facility] [address] [id number] [address] [place] [address], [place] [id number] 14 Aug, 2013 [facility] [address] [id number] [address] [place] [address], [place] [id number] Aug, [facility] [address] [id number] [address] [place] [address], [place] [address] 20 Jul, 2013 [facility] [address] [id number] [address] [place] [address], [place] [id number] 19 Jul, 2013 [facility] [address] [id number] [address] [place] [address], [place] [id number] 18 Jul, 2013 [facility] [address] [id number] [address] [place] [address], [place] [id number] 11 Jul, 2013 [facility] [address] [id number] [address] [place] [address], [place] [id number] 11 Jul, 2013 [facility] [address] [id number] [address] [place] [address], [place] [id number] Jun, [facility] [address] [id number] [address] [place] [address], [place] [id number] Jun, [facility] [address] [id number] [address] [place] [address], [place] [address] Jun, [facility] [address] [id number] [address] [place] [address], [place] [id number] 15 Jun, 2013 [facility] [address] [id number] [address] [place] [address], [place] [address] Jun, [facility] [address] [id number] [address] [place] [address], [place] [address] Jun, [facility] [address] [id number] [address] [place] [address], [place] [address] Jun, [facility] [address] [id number] [address] [place] [address], [place] [address] Jun, [facility] [address] [id number] [address] [place] [address], [place] [address] Jun, [facility] [address] [id number] [address] [place] [address], [place] [address] Jun, [facility] [address] [id number] [address] [place] [address], [place] [address] May, [facility] [address] [id number] [address] [place] [address], [place] [address] May, [facility] [address] [id number] [address] [place] [address], [place] [address] May, [facility] [address] [id number] [address] [place] [address], [place] [address] May, [facility] [address] [id number] [address] [place] [address], [place] [address] May, [facility] [address] [id number] [address] [place] [address], [place] [address] May, [facility] [address] [id number] [address] [place] [address], [place] [address] May, [facility] [address] [id number] [address] [place] [address], [place] [address] May, [facility] [address] [id number] [address] [place] [address], [place] [address] May, [facility] [address] [id number] [address] [place] [address], [place] [address] Apr, [facility] [address] [id number] [address] [place] [address], [place] [address] Apr, [facility] [address] [id number] [address] [place] [address], [place] [address] Apr, [facility] [address] [id number] [address] [place] [address], [place] [address] Apr, [facility] [address] [id number] [address] [place] [address], [place] [address] Apr, [facility] [address] [id number] [address] [place] [address], [place] [address] Apr, [facility] [address] [id number] [address] [place] [address], [place] [address] Apr, [facility] [address] [id number] [address] [place] [address], [place] [address] March, [facility] [address] [id number] [facility] [address] Feb, [facility] [address] [id number] [address] [place] [address], [place] [address] Feb, [facility] [address] [id number] [address] [place] [address], [place] [address] Feb, [facility] [address] [id number] [address] [place] [address], [place] [id number] 28 Jan, 2013 [facility] [address] [id number] [address] [place] [address], [place] [address] Jan, [facility] [address] [id number] [address] [place] [address], [place] [id number] 19 Jan, 2013 [facility] [address] [id number] [address] [place] [address], [place] [address] 14 Jan, 2013 [facility] [address] [id number] [address] [place] [address], [place] [address] 12 Jan, 2013 [facility] [address] [id number] [address] [place] [address], [place] [id number] 08 Jan, 2013 [facility] [address] [id number] [address] [place] [address], [place] [address] 07 Jan, 2013 [facility] [address] [id number] [address] [place] [address], [place] [id number] 04 Jan, 2013 [facility] [address] [id number] [address] [place] [address], [place] [address] 28 Dec, 2012 [facility] [address] [id number] [address] [place] [address], [place] [address] Dec, [facility] [address] [id number] [address] [place] [address], [place] [id number] 13 Dec, 2012 [facility] [address] [id number] [address] [place] [address], [place] [address] Dec, [facility] [address] [id number] [address] [place] [address], [place] [id number] 07 Dec, 2012 [facility] [address] [id number] [address] [place] [address], [place] [address] 06 Dec, 2012 [facility] [address] [id number] [address] [place] [address], [place] [id number] 05 Dec, 2012 [facility] [address] [id number] [address] [place] [address], [place] [address] Nov, [facility] [address] [id number] [address] [place] [address], [place] [address] 24 Nov, 2012 [facility] [address] [id number] [address] [place] [address], [place] [address] 18 Nov, 2012 [facility] [address] [id number] [address] [place] [address], [place] [id number] 15 Nov, 2012 [facility] [address] [id number] [address] [place] [address], [place] [address] Nov, [facility] [address] [id number] [address] [place] [address], [place] [address] Nov, [facility] [address] [id number] [address] [place] [address], [place] [id number] Nov, [facility] [address] [id number] [address] [place] [address], [place] [address] Oct, [facility] [address] [id number] [address] [place] [address], [place] [id number] 31 Oct, 2012 [facility] [address] [id number] [address] [place] [address], [place] [id number] Oct, [facility] [address] [id number] [address] [place] [address], [place] [address] Oct, [facility] [address] [id number] [address] [place] [address], [place] [id number] Oct, [facility] [address] [id number] [address] [place] [address], [place] [address] 17 Oct, 2012 [facility] [address] [id number] [address] [place] [address], [place] [id number] 07 Oct, 2012 [facility] [address] [id number] [address] [place] [address], [place] [id number] Oct, [facility] [address] [id number] [address] [place] [address], [place] [address] Oct, [facility] [address] [id number] [address] [place] [address], [place] [id number] Oct, [facility] [address] [id number] [address] [place] [address], [place] [id number] Oct, [facility] [address] [id number] [address] [place] [address], [place] [address] Oct, [facility] [address] [id number] [address] [place] [address], [place] [id number] Sep, [facility] [address] [id number] [address] [place] [address], [place] [address] Sep, [facility] [address] [id number] [address] [place] [address], [place] [id number] Sep, [facility] [address] [id number] [address] [place] [address], [place] [address] Sep, [facility] [address] [id number] [address] [place] [address], [place] [id number] Sep, [facility] [address] [id number] [address] [place] [address], [place] [id number] Sep, [facility] [address] [id number] [address] [place] [address], [place] [address] Sep, [facility] [address] [id number] [address] [place] [address], [place] [address] Sep, [facility] [address] [id number] [address] [place] [address], [place] [id number] Sep, [facility] [address] [id number] [address] [place] [address], [place] [id number] Sep, [facility] [address] [id number] [address] [place] [address], [place] [address] Sep, [facility] [address] [id number] [address] [place] [address], [place] [id number] Aug, [facility] [address] [id number] [address] [place] [address], [place] [address] Aug, [facility] [address] [id number] [address] [place] [address], [place] [address] Aug, [facility] [address] [id number] [address] [place] [address], [place] [id number] Aug, [facility] [address] [id number] [address] [place] [address], [place] [address] Aug, [facility] [address] [id number] [address] [place] [address], [place] [address] Aug, [facility] [address] [id number] [address] [place] [id number] Aug, [facility] [address] [id number] [address] [place] [address], [place] [address] Aug, [facility] [address] [id number] [address] [place] [id number] Aug, [facility] [address] [id number] [address] [place] [id number] Aug, [facility] [address] [id number] [address] [place] [id number] 22 Jul, 2012 [facility] [address] [id number] [address] [place] [address], [place] [address] 20 Jul, 2011 [facility] [address] [id number] [address] [place] [id number] 10 Jul, 2011 [facility] [address] [id number] [address] [place] [id number] 06 Jul, 2012 [facility] [address] [id number] [address] [place] [address], [place] [address] Jun, [facility] [address] [id number] [address] [place] [address], [place] [address] Jun, [facility] [address] [id number] [address] [place] [address], [place] [address] Jun, [facility] [address] [id number] [address] [place] [address], [place] [address] Jun, [facility] [address] [id number] [address] [place] [address], [place] [address] Jun, [facility] [address] [id number] [address] [place] [address], [place] [address] Jun, [facility] [address] [id number] [address] [place] [address], [place] [address] Jun, [facility] [address] [id number] [address] [place] [address], [place] [address] May, [facility] [address] [id number] [address] [place] [address], [place] [address] May, [facility] [address] [id number] [address] [place] [address], [place] [address] May, [facility] [address] [id number] [address] [place] [address], [place] [id number] May, [facility] [address] [id number] [address] [place] [address], [place] [address] May, [facility] [address] [id number] [address] [place] [address], [place] [address] Apr, [facility] [address] [id number] [address] [place] [address], [place] [address] Apr, [facility] [address] [id number] [address] [place] [address], [place] [address] Apr, [facility] [address] [id number] [address] [place] [address], [place] [id number] Apr, [facility] [address] [id number] [address] [place] [address], [place] [id number] Apr, [facility] [address] [id number] [address] [place] [address], [place] [id number] March, [facility] [address] [id number] [address] [place] [address], [place] [id number] March, [facility] [address] [id number] [address] [place] [address], [place] [id number] March, [facility] [address] [id number] [address] [place] [address], [place] [id number] March, [facility] [address] [id number] [address] [place] [address], [place] [id number] March, [facility] [address] [id number] [address] [place] [address], [place] [address] March, [facility] [address] [id number] [address] [place] [address], [place] [id number] March, [facility] [address] [id number] [address] [place] [address], [place] [id number] March, [facility] [address] [id number] [address] [place] [address], [place] [id number] March, [facility] [address] [id number] [address] [place] [address], [place] [id number] March, [facility] [address] [id number] [address] [place] [address], [place] [id number] Feb, [facility] [address] [id number] [address] [place] [address], [place] [id number] Feb, [facility] [address] [id number] [address] [place] [address], [place] [id number] Feb, [facility] [address] [id number] [address] [place] [address], [place] [id number] Feb, [facility] [address] [id number] [address] [place] [address], [place] [id number] Feb, [facility] [address] [id number] [address] [place] [address], [place] [id number] Feb, [facility] [address] [id number] [address] [place] [address], [place] [id number] Feb, [facility] [address] [id number] [address] [place] [address], [place] [id number] Feb, [facility] [address] [id number] [address] [place] [address], [place] [id number] Feb, [facility] [address] [id number] [address] [place] [address], [place] [id number] Jan, [facility] [address] [id number] [address] [place] [address], [place] [id number] Jan, [facility] [address] [id number] [address] [place] [address], [place] [id number] Jan, [facility] [address] [id number] [address] [place] [address], [place] [id number] Jan, [facility] [address] [id number] [address] [place] [address], [place] [id number] Dec, [facility] [address] [id number] [address] [place] [address], [place] [id number] Dec, [facility] [address] [id number] [address] [place] [address], [place] [id number] Nov, [facility] [address] [id number] [address] [place] [address], [place] [id number] Nov, [facility] [address] [id number] [address] [place] [address], [place] [id number] Nov, [facility] [address] [id number] [address] [place] [address], [place] [id number] 16 Nov, 2011 [facility] [address] [id number] [address] [place] [address], [place] [id number] Nov, [facility] [address] [id number] [address] [place] [id number] Oct, [facility] [address] [id number] [address] [place] [id number] Oct, [facility] [address] [id number] [address] [place] [id number] Oct, [facility] [address] [id number] [address] [place] [id number] Oct, [facility] [address] [id number] [address] [place] [id number] Oct, [facility] [address] [facility] [id number] [address] [place] [id number] Oct, [facility] [address] [id number] [address] [place] [id number] Oct, [facility] [address] [facility] [id number] [address] [place] [id number] Oct, [facility] [address] [facility] [id number] [address] [place] [id number] Sep, IMMUNIZATIONS No Known Immunizations SOCIAL HISTORY [...] discharged 11/27/2017 11/26/2017 Hospitalization History [facility] [place]- Went Unrepsonsive, Hit head 2017 Hospitalization History [facility] [place]- Back Pain 8
--- OUTSIDE RECORDS SUMMARY | 2020-06-18 15:48 | XMS REPORT ---
Author Author Sanjuanita Abdul Doctor Organization [facility] Address Unknown Phone Unavailable Care Team Providers Care Help Desk Associate Name Role Phone Migration, Doctor Unavailable Unavailable PROBLEMS Type Condition ICD9-CM Code WKX74-OX Code Onset Dates Condition S tatus SNOMED Code Problem Hypertension I10 Active 4473215 3 Problem Hyperlipidemia E78.5 Active 78877 004 Problem Coronary artery disease I25.10 Active 35272345 Problem Low back pain M54.5 Active 666319 009 Problem Other chronic pain G89.29 Active 8 1570073 Problem Ventral hernia without obstruction or gangrene K43 .9 Active 375723652 Problem Type 2 diabetes mellitus wit hout complication, without long-term current use of insulin E11.9 Active 580577433 Problem Anxiety F41.9 Active 24249625 Problem Peripheral vascular disease I73.9 Ac tive 215185425 Problem Insomnia G47.00 Active 743681397 Problem Microcytic anemia D50.9 Active 23 0386569 Problem Pharyngeal dysphagia R13.13 Active 87374727100503 Problem Other iron deficiency anemia D50.8 A ctive 13347848 Problem Reactive depression F32.9 Active 66410026 Problem Paroxysmal atrial fibrillation I48.0 Active 180332167 Problem Postmenopausal atrophic vaginitis N95.2 Active 03925132 Problem Encounter for suprapubic catheter care Z43.5 Active 805646518 Problem Neurogenic bladder N31.9 Active 3 [id number] ALLERGIES No Information ENCOUNTERS Encounter Location Date Diagnosis [facility] [address] [facility] [id number] [address] [place] [id number] March, [facility] [address] [facility] [id number] [address] [place] [address] March, Anxiety F41.9 and Strain of right shoulder, subsequent encounter S46.911D [facility] [address] [facility] [id number] [address] [place] [address] Feb, Anxiety F41.9 and Strain of right shoulder, subsequent encounter S46.911D [facility] [address] [id number] [address] [place] [address] 24 Jan, 2020 Anxiety F41.9 and Strain of right shoulder, subsequent encounter S46.911D [facility] [address] [id number] [address] [place] [address] 17 Jan, 2020 Via [facility] [employer] [address] [place] [id number] Jan, Neurogenic bladder N31.9 [facility] [address] [id number] [address] [place] [address] Dec, 2019 [facility] [address] [id number] [address] [place] [address] Dec, 2019 [facility] [address] [id number] [address] [place] [address] Dec, Anxiety F41.9 and Strain of right shoulder, subsequent encounter S46.911D [facility] [address] [id number] [address] [place] [address] 10 Dec, 2019 Other iron deficiency anemia D50.8 [facility] [address] [id number] [address] [place] [address] 04 Dec, 2019 [facility] [employer] [address] [place] [id number] Dec, Encounter for suprapubic catheter care Z 43.5 and Microcytic anemia D50.9 [facility] [address] [id number] [address] [place] [id number] 03 Dec, 2019 [facility] [address] [id number] [address] [place] [address] Nov, Anxiety F41.9 and Strain of right shoulder, subsequent encounter S46.911D [facility] [address] [id number] [address] [place] [address] Nov, Hypertension I10 [facility] [address] [place] [id number] Nov, Pneumonia of both lungs due to infectiou s organism, unspecified part of lung J18.9 and Suprapubic catheter Z93.59 [facility] [address] [id number] [address] [place] [address] Nov, Hypertension I10 and Reactiv e depression F32.9 [facility] [address] [id number] [address] [place] [address] Oct, Strain of right shoulder, scherer bsequent encounter S46.911D and Anxiety F41.9 [facility] [facility] [address] [id number] [address] [place] [address] Oct, Via [facility] [address] [place] [id number] Oct, Suprapubic catheter Z93.59 and Candidias is, intertriginous B37.2 [facility] [address] [id number] [address] [place] [address] Oct, Suprapubic catheter Z93.59 [facility] [address] [id number] [address] [place] [address] Oct, Anxiety F41.9 and Strain of right shoulder, subsequent encounter S46.911D [facility] [address] [id number] [address] [place] [address] Sep, [facility] [address] [id number] [address] [place] [address] Sep, [facility] [address] [id number] [address] [place] [address] Sep, Via [facility] [address] [place] [id number] Sep, Suprapubic catheter Z93.59 [facility] [address] [id number] [address] [place] [address] Sep, Anxiety F41.9 and Strain of right shoulder, subsequent encounter S46.911D [facility] [address] [id number] [address] [place] [address] Aug, [facility] [address] [id number] [address] [place] [address] Aug, [facility] [address] [id number] [address] [place] [address] Aug, Anxiety F41.9 and Strain of right shoulder, subsequent encounter S46.911D [facility] [address] [place] [id number] Aug, Suprapubic catheter Z93.59 [facility] [address] [id number] [address] [place] [address] Jul, Strain of right shoulder, scherer bsequent encounter S46.911D and Anxiety F41.9 [facility] [address] [id number] [address] [place] [address] Jul, Anxiety F41.9 [facility] [address] [id number] [address] [place] [address] Jun, [facility] [address] [id number] [address] [place] [address] Jun, [facility] [address] [id number] [address] [place] [address] Jun, [facility] [address] [id number] [address] [place] [address] Jun, Strain of right shoulder, scherer bsequent encounter S46.911D [facility] [address] [id number] [address] [place] [address] Jun, Strain of right shoulder, scherer bsequent encounter S46.911D [facility] [address] [id number] [address] [place] [address] Jun, Anxiety F41.9 Via [facility] [employer] [address] [place] [id number] Jun, Neurogenic bladder N31.9 and Anxiety F41 .9 [facility] [employer] [address] [place] [id number] May, Anxiety F41.9 [facility] [address] [id number] [address] [place] [address] May, Dysuria R30.0 [facility] [address] [id number] [address] [place] [address] May, Strain of right shoulder, scherer bsequent encounter S46.911D and Anxiety F41.9 [facility] [address] [id number] [address] [place] [address] Apr, Via [facility] [address] [place] [id number] Apr, Strain of right shoulder, subsequent enc ounter S46.911D [facility] [address] [facility] [id number] [address] [place] [address] 14 Apr, 2019 Strain of right shoulder, scherer bsequent encounter S46.911D and Anxiety F41.9 [facility] [employer] [address] [place] [id number] 13 Apr, 2019 Type 2 diabetes mellitus without complic ation, without long-term current use of insulin E11.9 and Neurogenic bladder N31.9 [facility] [employer] [address] [place] [id number] Apr, Strain of right shoulder, subsequent enc ounter S46.911D ; History of GI bleed Z87.19 ; Neurogenic bladder N31.9 and Reactive depression F32.9 [facility] [address] [id number] [address] [place] [address] 10 Apr, 2019 Acute pain of left shoulder M25.512 [facility] [address] [id number] [address] [place] [id number] 07 Apr, 2019 [facility] [address] [id number] [address] [place] [address] 06 Apr, 2019 Anxiety F41.9 and 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 [facility] [address] [place] [id number] March, Gastrointestinal hemorrhage associated w ith acute gastritis K29.01 [facility] [address] [id number] [address] [place] [address] March, Via [employer] [address] [place] [id number] March, Bronchitis J40 [facility] [address] [id number] [address] [place] [address] March, Cough R05 [facility] [address] [id number] [address] [place] [address] March, Other chronic pain G89.29 [facility] [address] [id number] [address] [place] [address] March, Anxiety F41.9 [facility] [address] [id number] [address] [place] [address] March, [facility] [address] [id number] [address] [place] [address] Feb, Other chronic pain G89.29 [facility] [address] [id number] [address] [place] [address] Feb, Anxiety F41.9 [facility] [address] [id number] [address] [place] [address] Feb, Other chronic pain G89.29 [facility] [employer] [facility] [address] [place] [id number] Feb, Neurogenic bladder N31.9 and Suprapubic catheter Z93.59 [facility] [address] [id number] [address] [place] [address] Jan, Anxiety F41.9 [facility] [address] [id number] [address] [place] [address] Dec, Anxiety F41.9 [facility] [address] [id number] [address] [place] [address] Dec, Other chronic pain G89.29 an d Anxiety F41.9 [facility] [address] [id number] [address] [place] [address] Dec, Via [employer] [address] [place] [id number] Dec, Neurogenic bladder N31.9 and Suprapubic catheter Z93.59 [facility] [address] [id number] [address] [place] [address] Nov, Other chronic pain G89.29 an d Anxiety F41.9 [facility] [address] [id number] [address] [place] [address] Nov, Via [employer] [address] [place] [id number] Nov, Suprapubic catheter Z93.59 [facility] [address] [id number] [address] [place] [address] Oct, Other chronic pain G89.29 an d Anxiety F41.9 [facility] [address] [id number] [address] [place] [address] Oct, [facility] [address] [id number] [address] [place] [address] Oct, Suprapubic catheter Z93.59 [facility] [address] [id number] [address] [place] [address] Oct, Via [employer] [address] [place] [id number] Oct, [facility] [address] [id number] [address] [place] [address] Oct, Anxiety F41.9 [facility] [address] [id number] [address] [place] [address] Oct, Anxiety F41.9 [facility] [employer] [address] [place] [id number] Oct, Other chronic pain G89.29 [facility] [address] [id number] [address] [place] [id number] 14 Sep, 2018 Other chronic pain G89.29 Via [employer] [address] [place] [id number] Sep, Suprapubic catheter Z93.59 and Cervicalg ia M54.2 [facility] [address] [id number] [address] [place] [address] Sep, [facility] [address] [id number] [address] [place] [address] Sep, [facility] [address] [id number] [address] [place] [address] Sep, Via [facility] [address] [place] [id number] Aug, Cystitis N30.90 [facility] [address] [id number] [address] [place] [address] Aug, [facility] [address] [id number] [address] [place] [address] Aug, Other chronic pain G89.29 [facility] [address] [id number] [address] [place] [address] Aug, Via [employer] [address] [place] [id number] Aug, Encounter for suprapubic catheter care Z 43.5 [facility] [address] [id number] [address] [place] [address] Jul, Via [employer] [address] [place] [id number] Jul, [facility] [address] [id number] [address] [place] [address] Jul, Other chronic pain G89.29 [facility] [address] [id number] [address] [place] [address] Jul, [facility] [address] [id number] [address] [place] [address] Jul, Via [facility] [address] [place] [id number] Jun, Postmenopausal atrophic vaginitis N95.2 [place] [address] [id number] [address] [place] [address] Jun, Other chronic pain G89.29 [place] [address] [id number] [address] [place] [address] Jun, Via [facility] [address] [place] [id number] May, Anxiety F41.9 ; Type 2 diabetes mellitus without complication, without long-term current use of insulin E11.9 ; Hypertension I10 ; Low back pain M54.5 ; Paroxysmal atrial fibrillation I48.0 and 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 [place] [address] [id number] [address] [place] [address] May, Other chronic pain G89.29 [facility] [address] [place] [id number] May, Low back pain M54.5 [place] [address] [id number] [address] [place] [address] May, [place] [address] [id number] [address] [place] [address] Apr, Other chronic pain G89.29 [place] [address] [id number] [address] [place] [address] Apr, [place] [address] [id number] [address] [place] [address] Apr, Via [facility] [address] [place] [id number] Apr, Closed compression fracture of L3 lumbar vertebra with routine healing, subsequent encounter S32.030D [facility] [address] [place] [id number] Apr, Low back pain M54.5 [facility] [address] [place] [id number] Apr, Coccydynia M53.3 [facility] [address] [id number] [address] [place] [address] March, [facility] [address] [id number] [address] [place] [address] March, Other chronic pain G89.29 [facility] [address] [id number] [address] [place] [address] March, [facility] [address] [id number] [address] [place] [address] March, [facility] [address] [id number] [address] [place] [address] Feb, [facility] [address] [id number] [address] [place] [address] Feb, Other chronic pain G89.29 Via [employer] [address] [place] [id number] Feb, Other chronic pain G89.29 and Anxiety F4 1.9 [facility] [address] [id number] [address] [place] [address] Feb, [facility] [address] [id number] [address] [place] [address] Jan, [facility] [address] [id number] [address] [place] [address] Jan, [facility] [address] [id number] [address] [place] [address] Jan, [facility] [address] [id number] [address] [place] [address] Jan, [facility] [address] [id number] [address] [place] [address] Dec, Via [employer] [address] [place] [id number] Dec, Peripheral vascular disease I73.9 ; 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 ; Other chronic pain G89.29 ; Anxiety F41.9 ; Reactive depression F32.9 ; Insomnia G47.00 and Type 2 diabetes mellitus without complication, without long-term current use of insulin E11.9 [facility] Formerly named [facility] ADRIENNE SANCHEZ [id number] [address] Nov, [facility] [address] [id number] [facility] [place] [id number] Nov, Anxiety F41.9 [facility] [address] [facility] [id number] [address] [place] [address] Nov, [facility] [address] [id number] [place] [facility] [place] [id number] Nov, Anxiety F41.9 Via [employer] [address] [place] [id number] Nov, Status post surgery Z98.890 ; Confused R 41.0 ; Anxiety F41.9 and Other chronic pain G89.29 [place] [address] [id number] [place] [id number] Nov, Other chronic pain G89.29 [place] [address] [facility] [id number] [address] [place] [address] Oct, [place] [address] [id number] [place] [id number] Oct, Other chronic pain G89.29 [place] [address] [facility] [id number] [address] [place] [address] Oct, Anxiety F41.9 [place] [address] [id number] [place] [id number] Sep, Other chronic pain G89.29 [place] [address] [id number] [place] [id number] Sep, [facility] [employer] [address] [place] [id number] Aug, Dysuria R30.0 and Anxiety F41.9 [place] [address] [id number] [address] [place] [address] 16 Aug, 2017 [facility] [address] [id number] [place] [id number] Aug, Other chronic pain G89.29 [facility] [address] [id number] [address] [place] [address] Jul, Other chronic pain G89.29 [facility] [address] [id number] [place] [id number] Jun, [facility] [address] [id number] [place] [id number] Jun, Other chronic pain G89.29 [facility] [address] [id number] [address] [place] [address] Jun, [facility] [address] [facility] [id number] [address] [place] [address] May, Other chronic pain G89.29 [facility] [address] [id number] [address] [place] [address] Apr, Other chronic pain G89.29 Via [facility] [address] [place] [id number] Apr, Reactive depression F32.9 and Pharyngeal dysphagia R13.13 [facility] [address] [facility] [id number] [address] [place] [address] Apr, Urinary tract infection with out hematuria, site unspecified N39.0 [facility] [address] [facility] [id number] [address] [place] [address] March, Other chronic pain G89.29 [facility] [address] [id number] [address] [place] [address] Feb, Other chronic pain G89.29 [facility] [address] [id number] [address] [place] [address] Feb, [facility] [address] [id number] [place] [id number] Feb, [facility] [address] [place] [id number] Feb, Dysuria R30.0 and Ventral hernia without obstruction or gangrene K43.9 [facility] [address] [id number] [address] [place] [address] Jan, Other chronic pain G89.29 [facility] [address] [id number] [place] [id number] Dec, Other chronic pain G89.29 [facility] [address] [id number] [address] [place] [address] Nov, Other chronic pain G89.29 [facility] [address] [place] [id number] Nov, Lymphadenitis I88.9 [facility] [address] [id number] [address] [place] [address] Nov, Other chronic pain G89.29 [facility] [address] [id number] [address] [place] [address] Nov, [facility] [address] [id number] [place] [id number] Nov, Other chronic pain G89.29 Via [facility] [address] [place] [id number] Oct, Low back pain M54.5 ; Hypertension I10 a nd Type 2 diabetes mellitus without complication, without long-term current use of insulin E11.9 [facility] [address] [id number] [address] [place] [address] Oct, [facility] [address] [id number] [address] [place] [phone] Oct, [facility] [address] [id number] [address] [place] [address] Oct, [facility] [address] [id number] [address] [place] [phone] Oct, [facility] [address] [id number] [address] [place] [phone] Sep, [facility] [address] [id number] [address] [place] [id number] Sep, [facility] [address] [id number] [address] [place] [id number] Aug, Other chronic pain G89.29 [facility] [address] [id number] [address] [place] [id number] Jul, [facility] [address] [id number] [address] [place] [id number] Jul, [facility] [address] [id number] [address] [place] [phone] Jul, [facility] [address] [id number] [address] [place] [id number] Jun, [facility] [address] [id number] [address] [place] [id number] Jun, [facility] [address] [place] [id number] Jun, Low back pain M54.5 ; Other chronic pain G89.29 and Coronary artery disease I25.10 [facility] [address] [id number] [address] [place] [phone] Jun, [facility] [address] [id number] [address] [place] [id number] May, [facility] [address] [id number] [address] [place] [phone] May, [facility] [address] [id number] [address] [place] [id number] May, Other chronic pain G89.29 [facility] [address] [id number] [address] [place] [id number] May, [facility] [address] [id number] [address] [place] [id number] 28 Apr, 2016 [facility] [address] [id number] [address] [place] [id number] 17 Apr, 2016 Acute cystitis without hemat uria N30.00 [facility] [address] [id number] [address] [place] [id number] 16 Apr, 2016 Acute cystitis without hemat uria N30.00 ; Coronary artery disease I25.10 ; Low back pain M54.5 and Other chronic pain G89.29 [facility] [address] [id number] [address] [place] [id number] 13 Apr, 2016 Other chronic pain G89.29 [facility] [address] [id number] [address] [place] [id number] March, Other chronic pain G89.29 [facility] [address] [id number] [address] [place] [id number] 18 Feb, 2016 [facility] [address] [id number] [address] [place] [address] 15 Feb, 2016 Arthritis M19.90 [facility] [address] [id number] [address] [place] [id number] Feb, [facility] [address] [id number] [address] [place] [address] 30 Jan, 2016 [facility] [address] [id number] [address] [place] [id number] Jan, [facility] [address] [id number] [address] [place] [address] Jan, Other chronic pain G89.29 [facility] [address] [id number] [address] [place] [address] Jan, Hypertension I10 ; Coronary artery disease I25.10 and Insomnia G47.00 [facility] [address] [id number] [address] [place] [address] Jan, [facility] [address] [id number] [address] [place] [address] Dec, Right hip pain M25.551 [facility] [address] [id number] [address] [place] [address] Dec, [facility] [address] [id number] [address] [place] [address] Dec, [facility] [address] [id number] [address] [place] [id number] Dec, [facility] [address] [id number] [address] [place] [address] Dec, Other chronic pain G89.29 [facility] [address] [id number] [address] [place] [phone] Dec, [facility] [address] [id number] [address] [place] [id number] Nov, [facility] [address] [id number] [address] [place] [address] Nov, Other chronic pain G89.29 [facility] [address] [id number] [address] [place] [address] Nov, Right hip pain M25.551 and C oronary artery disease I25.10 [facility] [address] [id number] [address] [place] [address] Nov, Other chronic pain G89.29 [facility] [address] [id number] [address] [place] [phone] Oct, [facility] [address] [id number] [address] [place] [id number] Oct, [facility] [address] [id number] [address] [place] [id number] Sep, [facility] [address] [id number] [address] [place] [phone] Sep, [facility] [address] [id number] [address] [place] [id number] Aug, [facility] [address] [id number] [address] [place] [address] Aug, Hypertension I10 ; Coronary artery disease I25.10 and Arthritis M19.90 [facility] [address] [id number] [address] [place] [id number] Jun, [facility] [address] [id number] [address] [place] [id number] Jun, Essential hypertension, jayson gn 401.1 ; Other chronic pain 338.29 and Chronic airway obstruction, not elsewhere classified 496 [facility] [address] [id number] [address] [place] [phone] Jun, [facility] [address] [id number] [address] [place] [id number] Jun, [facility] [address] [id number] [address] [place] [address] Jun, [facility] [address] [id number] [address] [place] [address] May, [facility] [address] [id number] [address] [place] [phone] May, [facility] [address] [id number] [address] [place] [id number] Apr, [facility] [address] [id number] [address] [place] [phone] Apr, [facility] [address] [id number] [address] [place] [address] Apr, [facility] [address] [id number] [address] [place] [phone] March, [facility] [address] [id number] [address] [place] [address] March, [facility] [address] [id number] [address] [place] [address] March, [facility] [address] [id number] [address] [place] [address], [place] [address] March, [facility] [address] [id number] [address] [place] [address], [place] [address] March, Sialadenitis 527.2 [facility] [address] [id number] [address] [place] [address], [place] [address] Feb, [facility] [address] [id number] [address] [place] [address], [place] [id number] Feb, [facility] [address] [id number] [address] [place] [address], [place] [address] Feb, [facility] [address] [id number] [address] [place] [address], [place] [address] Feb, [facility] [address] [id number] [address] [place] [id number] Feb, [facility] [address] [id number] [address] [place] [address], [place] [id number] Jan, [facility] [address] [id number] [address] [place] [address], [place] [address] Jan, [facility] [address] [id number] [address] [place] [address], [place] [address] Jan, [facility] [address] [id number] [address] [place] [address], [place] [address] Jan, [facility] [address] [id number] [address] [place] [phone] Jan, [facility] [address] [id number] [address] [place] [phone] Jan, [facility] [address] [id number] [address] [place] [address], [place] [id number] Dec, [facility] [address] [id number] [address] [place] [id number] Dec, [facility] [address] [id number] [address] [place] [address], [place] [address] Dec, [facility] [address] [id number] [address] [place] [address], [place] [address] Dec, [facility] [address] [id number] [address] [place] [address], [place] [address] Dec, [facility] [address] [id number] [address] [place] [address], [place] [address] Dec, [facility] [address] [id number] [address] [place] [address], [place] [address] Nov, [facility] [address] [id number] [address] [place] [address], [place] [address] Nov, [facility] [address] [id number] [address] [place] [address], [place] [address] Nov, [facility] [address] [id number] [address] [place] [address], [place] [address] Nov, [facility] [address] [id number] [address] [place] [address], [place] [address] Nov, [facility] [address] [id number] [address] [place] [address], [place] [address] Nov, [facility] [address] [id number] [address] [place] [address], [place] [address] Nov, [facility] [address] [id number] [address] [place] [address], [place] [address] Nov, [facility] [address] [id number] [address] [place] [address], [place] [address] Nov, [facility] [address] [id number] [address] [place] [address], [place] [address] Nov, [facility] [address] [id number] [address] [place] [address], [place] [address] Nov, [facility] [address] [id number] [address] [place] [address], [place] [address] Nov, [facility] [address] [id number] [address] [place] [address], [place] [address] Nov, [facility] [address] [id number] [address] [place] [address], [place] [address] Nov, [facility] [address] [id number] [address] [place] [address], [place] [address] Oct, [facility] [address] [id number] [address] [place] [address], [place] [address] Oct, [facility] [address] [id number] [address] [place] [address], [place] [address] Oct, [facility] [address] [id number] [address] [place] [address], [place] [address] Oct, [facility] [address] [id number] [address] [place] [address], [place] [address] Oct, [facility] [address] [id number] [address] [place] [address], [place] [address] Oct, [facility] [address] [id number] [address] [place] [address], [place] [address] Oct, [facility] [address] [id number] [address] [place] [address], [place] [address] Oct, [facility] [address] [id number] [address] [place] [address], [place] [address] Oct, [facility] [address] [id number] [address] [place] [address], [place] [address] Sep, [facility] [address] [id number] [address] [place] [address], [place] [id number] Sep, [facility] [address] [id number] [address] [place] [address], [place] [address] Sep, [facility] [address] [id number] [address] [place] [address], [place] [address] Sep, [facility] [address] [id number] [address] [place] [address], [place] [address] Sep, [facility] [address] [id number] [address] [place] [address], [place] [address] Sep, [facility] [address] [id number] [address] [place] [address], [place] [address] Sep, [facility] [address] [id number] [address] [place] [address], [place] [address] Sep, [facility] [address] [id number] [address] [place] [address], [place] [address] Sep, [facility] [address] [id number] [address] [place] [address], [place] [address] Sep, [facility] [address] [id number] [address] [place] [address], [place] [address] Sep, [facility] [address] [id number] [address] [place] [address], [place] [address] Sep, [facility] [address] [id number] [address] [place] [address], [place] [address] Aug, [facility] [address] [id number] [address] [place] [address], [place] [address] Aug, [facility] [address] [id number] [address] [place] [address], [place] [address] Aug, [facility] [address] [id number] [address] [place] [address], [place] [address] Aug, [facility] [address] [id number] [address] [place] [address], [place] [address] Aug, [facility] [address] [id number] [address] [place] [address], [place] [address] Aug, [facility] [address] [id number] [address] [place] [address], [place] [address] Aug, [facility] [address] [id number] [address] [place] [address], [place] [address] Aug, [facility] [address] [id number] [facility] [place] [address] 30 Jul, 2013 [facility] [address] [id number] [address] [place] [address], [place] [address] 30 Jul, 2013 [facility] [address] [id number] [address] [place] [address], [place] [address] 30 Jul, 2013 [facility] [address] [id number] [address] [place] [address], [place] [address] 30 Jul, 2013 [facility] [address] [id number] [address] [place] [address], [place] [address] 25 Jul, 2013 [facility] [address] [id number] [address] [place] [address], [place] [address] 25 Jul, 2013 [facility] [address] [id number] [address] [place] [address], [place] [address] 15 Jul, 2014 [facility] [address] [id number] [address] [place] [address], [place] [address] 15 Jul, 2014 [facility] [address] [id number] [address] [place] [address], [place] [address] 11 Jul, 2014 [facility] [address] [id number] [address] [place] [address], [place] [address] Jul, [facility] [address] [id number] [address] [place] [address], [place] [address] Jun, [facility] [address] [id number] [address] [place] [address], [place] [address] Jun, [facility] [address] [id number] [address] [place] [address], [place] [address] Jun, [facility] [address] [id number] [address] [place] [address], [place] [address] Jun, [facility] [address] [id number] [address] [place] [address], [place] [address] Jun, [facility] [address] [id number] [address] [place] [address], [place] [address] Jun, [facility] [address] [id number] [facility] [place] [address] Jun, [facility] [address] [id number] [facility] [place] [address] Jun, [facility] [address] [id number] [facility] [place] [address] Jun, [facility] [address] [id number] [facility] [place] [address] Jun, [facility] [address] [id number] [address] [place] [address], [place] [address] Jun, [facility] [address] [id number] [address] [place] [address], [place] [address] Jun, [facility] [address] [id number] [address] [place] [address], [place] [address] Jun, [facility] [address] [id number] [address] [place] [address], [place] [address] Jun, [facility] [address] [id number] [address] [place] [address], [place] [address] Jun, [facility] [address] [id number] [address] [place] [address], [place] [address] Jun, [facility] [address] [id number] [address] [place] [address], [place] [address] Jun, [facility] [address] [id number] [address] [place] [address], [place] [address] Jun, [facility] [address] [id number] [address] [place] [address], [place] [address] Jun, [facility] [address] [id number] [address] [place] [address], [place] [address] Jun, [facility] [address] [id number] [address] [place] [address], [place] [address] Jun, [facility] [address] [id number] [facility] [place] [address] Jun, [facility] [address] [id number] [facility] [place] [address] May, [facility] [address] [id number] [facility] [place] [address] May, [facility] [address] [id number] [address] [place] [address], [place] [address] May, [facility] [address] [id number] [address] [place] [address], [place] [address] May, [facility] [address] [id number] [address] [place] [address], [place] [address] May, [facility] [address] [id number] [address] [place] [address], [place] [address] May, [facility] [address] [id number] [address] [place] [address], [place] [address] May, [facility] [address] [id number] [address] [place] [address], [place] [address] May, [facility] [address] [id number] [address] [place] [address], [place] [address] May, [facility] [address] [id number] [address] [place] [address], [place] [address] May, [facility] [address] [id number] [address] [place] [address], [place] [address] May, [facility] [address] [id number] [address] [place] [address], [place] [address] May, [facility] [address] [id number] [address] [place] [address], [place] [address] May, [facility] [address] [id number] [address] [place] [address], [place] [address] Apr, [facility] [address] [id number] [address] [place] [address], [place] [address] Apr, [facility] [address] [id number] [facility] [place] [address] Apr, [facility] [address] [id number] [address] [place] [address], [place] [address] Apr, [facility] [address] [id number] [facility] [place] [address] Apr, [facility] [address] [id number] [address] [place] [address], [place] [address] Apr, [facility] [address] [id number] [address] [place] [address], [place] [address] Apr, [facility] [address] [id number] [address] [place] [address], [place] [address] Apr, [facility] [address] [id number] [address] [place] [address], [place] [address] Apr, [facility] [address] [id number] [address] [place] [address], [place] [address] March, [facility] [address] [id number] [address] [place] [address], [place] [address] March, [facility] [address] [id number] [address] [place] [address], [place] [address] March, [facility] [address] [id number] [address] [place] [address], [place] [address] March, [facility] [address] [id number] [address] [place] [address], [place] [address] March, [facility] [address] [id number] [address] [place] [address], [place] [address] March, [facility] [address] [id number] [address] [place] [address], [place] [address] March, [facility] [address] [id number] [address] [place] [address], [place] [address] March, [facility] [address] [id number] [address] [place] [address], [place] [address] March, [facility] [address] [id number] [address] [place] [address], [place] [address] March, [facility] [address] [id number] [address] [place] [address], [place] [address] March, [facility] [address] [id number] [address] [place] [address], [place] [address] March, [facility] [address] [id number] [address] [place] [address], [place] [address] March, [facility] [address] [id number] [address] [place] [address], [place] [address] March, [facility] [address] [id number] [address] [place] [address], [place] [address] March, [facility] [address] [id number] [address] [place] [address], [place] [address] March, [facility] [address] [id number] [address] [place] [address], [place] [address] March, [facility] [address] [id number] [address] [place] [address], [place] [address] March, [facility] [address] [id number] [address] [place] [address], [place] [id number] March, [facility] [address] [id number] [address] [place] [address], [place] [id number] March, [facility] [address] [id number] [address] [place] [address], [place] [id number] Feb, [facility] [address] [id number] [address] [place] [address], [place] [address] Feb, [facility] [address] [id number] [address] [place] [address], [place] [id number] Feb, [facility] [address] [id number] [address] [place] [address], [place] [id number] Feb, [facility] [address] [id number] [facility] [place] [id number] Feb, [facility] [address] [id number] [address] [place] [address], [place] [id number] Feb, [facility] [address] [id number] [address] [place] [address], [place] [id number] Feb, [facility] [address] [id number] [address] [place] [address], [place] [id number] Feb, [facility] [address] [id number] [address] [place] [address], [place] [id number] Jan, [facility] [address] [id number] [address] [place] [address], [place] [id number] Jan, [facility] [address] [id number] [address] [place] [address], [place] [id number] Jan, [facility] [address] [id number] [address] [place] [address], [place] [id number] Jan, [facility] [address] [id number] [address] [place] [address], [place] [id number] Jan, [facility] [address] [id number] [address] [place] [address], [place] [id number] Jan, [facility] [address] [id number] [address] [place] [address], [place] [id number] Jan, [facility] [address] [id number] [address] [place] [address], [place] [address] Jan, [facility] [address] [id number] [address] [place] [address], [place] [id number] Jan, [facility] [address] [id number] [address] [place] [address], [place] [id number] Jan, [facility] [address] [id number] [address] [place] [address], [place] [id number] Dec, [facility] [address] [id number] [address] [place] [address], [place] [id number] Dec, [facility] [address] [id number] [address] [place] [address], [place] [id number] Dec, [facility] [address] [id number] [address] [place] [address], [place] [id number] Dec, [facility] [address] [id number] [address] [place] [address], [place] [id number] Dec, [facility] [address] [id number] [address] [place] [address], [place] [id number] Dec, [facility] [address] [id number] [address] [place] [address], [place] [id number] Dec, [facility] [address] [id number] [address] [place] [address], [place] [id number] Dec, [facility] [address] [id number] [address] [place] [address], [place] [address] Nov, [facility] [address] [id number] [address] [place] [address], [place] [id number] Nov, [facility] [address] [id number] [address] [place] [address], [place] [id number] Nov, [facility] [address] [id number] [address] [place] [address], [place] [id number] Nov, [facility] [address] [id number] [address] [place] [address], [place] [id number] Nov, [facility] [address] [id number] [address] [place] [address], [place] [id number] Nov, [facility] [address] [id number] [address] [place] [address], [place] [id number] Nov, [facility] [address] [id number] [address] [place] [address], [place] [id number] Nov, [facility] [address] [id number] [address] [place] [address], [place] [id number] Nov, [facility] [address] [id number] [address] [place] [address], [place] [id number] Nov, [facility] [address] [id number] [address] [place] [address], [place] [id number] Nov, [facility] [address] [id number] [address] [place] [address], [place] [id number] Nov, [facility] [address] [id number] [address] [place] [address], [place] [id number] Nov, [facility] [address] [id number] [address] [place] [address], [place] [id number] Oct, [facility] [address] [id number] [address] [place] [address], [place] [id number] Oct, [facility] [address] [id number] [address] [place] [address], [place] [address] Oct, [facility] [address] [id number] [address] [place] [address], [place] [id number] Oct, [facility] [address] [id number] [address] [place] [address], [place] [id number] Oct, [facility] [address] [id number] [address] [place] [address], [place] [address] Oct, [facility] [address] [id number] [address] [place] [address], [place] [address] Oct, [facility] [address] [id number] [address] [place] [address], [place] [id number] Oct, [facility] [address] [id number] [address] [place] [address], [place] [id number] Oct, [facility] [address] [id number] [address] [place] [address], [place] [id number] Oct, [facility] [address] [id number] [address] [place] [address], [place] [id number] Oct, [facility] [address] [id number] [address] [place] [id number] Oct, [facility] [address] [id number] [address] [place] [address], [place] [id number] Oct, [facility] [address] [id number] [address] [place] [id number] Oct, [facility] [address] [id number] [address] [place] [id number] Sep, [facility] [address] [id number] [address] [place] [id number] Sep, [facility] [address] [id number] [address] [place] [address], [place] [id number] Sep, [facility] [address] [id number] [address] [place] [id number] Sep, [facility] [address] [id number] [address] [place] [id number] Sep, [facility] [address] [id number] [address] [place] [id number] Sep, [facility] [address] [id number] [address] [place] [id number] Sep, [facility] [address] [id number] [address] [place] [id number] Sep, [facility] [address] [id number] [address] [place] [id number] Sep, [facility] [address] [id number] [address] [place] [id number] Sep, [facility] [address] [id number] [address] [place] [id number] Aug, [facility] [address] [id number] [address] [place] [id number] Aug, [facility] [address] [id number] [address] [place] [id number] Aug, [facility] [address] [id number] [address] [place] [address], [place] [id number] 24 Aug, 2012 [facility] [address] [id number] [address] [place] [address], [place] [id number] 23 Aug, 2012 [facility] [address] [id number] [address] [place] [address], [place] [id number] 23 Aug, 2012 [facility] [address] [id number] [address] [place] [address], [place] [id number] 23 Aug, 2012 [facility] [address] [id number] [address] [place] [address], [place] [id number] 23 Aug, 2012 [facility] [address] [id number] [address] [place] [address], [place] [address] Aug, 2012 [facility] [address] [id number] [address] [place] [address], [place] [id number] 22 Aug, 2012 [facility] [address] [id number] [address] [place] [address], [place] [id number] 18 Aug, 2012 [facility] [address] [id number] [address] [place] [address], [place] [id number] 18 Aug, 2013 [facility] [address] [id number] [address] [place] [address], [place] [id number] 18 Aug, 2012 [facility] [address] [id number] [address] [place] [address], [place] [id number] 18 Aug, 2013 [facility] [address] [id number] [address] [place] [address], [place] [id number] 17 Aug, 2012 [facility] [address] [id number] [address] [place] [address], [place] [id number] 14 Aug, 2013 [facility] [address] [id number] [address] [place] [address], [place] [id number] 14 Aug, 2013 [facility] [address] [id number] [address] [place] [address], [place] [address] Aug, [facility] [address] [id number] [address] [place] [address], [place] [id number] 20 Jul, 2013 [facility] [address] [id number] [address] [place] [address], [place] [id number] 19 Jul, 2013 [facility] [address] [id number] [address] [place] [address], [place] [id number] 18 Jul, 2013 [facility] [address] [id number] [address] [place] [address], [place] [id number] 11 Jul, 2013 [facility] [address] [id number] [address] [place] [address], [place] [id number] 11 Jul, 2013 [facility] [address] [id number] [address] [place] [address], [place] [address] Jun, [facility] [address] [id number] [address] [place] [address], [place] [address] Jun, [facility] [address] [id number] [address] [place] [address], [place] [id number] Jun, [facility] [address] [id number] [address] [place] [address], [place] [id number] 15 Jun, 2013 [facility] [address] [id number] [address] [place] [address], [place] [address] Jun, [facility] [address] [id number] [address] [place] [address], [place] [id number] Jun, [facility] [address] [id number] [address] [place] [address], [place] [address] Jun, [facility] [address] [id number] [address] [place] [address], [place] [id number] Jun, [facility] [address] [id number] [address] [place] [address], [place] [id number] Jun, [facility] [address] [id number] [address] [place] [address], [place] [address] Jun, [facility] [address] [id number] [address] [place] [address], [place] [address] May, [facility] [address] [id number] [address] [place] [address], [place] [address] May, [facility] [address] [id number] [address] [place] [address], [place] [address] May, [facility] [address] [id number] [address] [place] [address], [place] [id number] May, [facility] [address] [id number] [address] [place] [address], [place] [address] May, [facility] [address] [id number] [address] [place] [address], [place] [address] May, [facility] [address] [id number] [address] [place] [address], [place] [address] May, [facility] [address] [id number] [address] [place] [address], [place] [id number] May, [facility] [address] [id number] [address] [place] [address], [place] [address] May, [facility] [address] [id number] [address] [place] [address], [place] [address] Apr, [facility] [address] [id number] [address] [place] [address], [place] [id number] Apr, [facility] [address] [id number] [address] [place] [address], [place] [address] Apr, [facility] [address] [id number] [address] [place] [address], [place] [id number] Apr, [facility] [address] [id number] [address] [place] [address], [place] [address] Apr, [facility] [address] [id number] [address] [place] [address], [place] [address] Apr, [facility] [address] [id number] [address] [place] [address], [place] [id number] Apr, [facility] [address] [id number] [address] [place] [address], [place] [address] March, [facility] [address] [id number] [facility] [place] [address] Feb, [facility] [address] [id number] [address] [place] [address], [place] [id number] Feb, [facility] [address] [id number] [address] [place] [address], [place] [address] Feb, [facility] [address] [id number] [address] [place] [address], [place] [id number] 28 Jan, 2013 [facility] [address] [id number] [address] [place] [address], [place] [address] Jan, [facility] [address] [id number] [address] [place] [address], [place] [id number] 19 Jan, 2013 [facility] [address] [id number] [address] [place] [address], [place] [id number] 14 Jan, 2013 [facility] [address] [id number] [address] [place] [address], [place] [id number] 12 Jan, 2013 [facility] [address] [id number] [address] [place] [address], [place] [id number] 08 Jan, 2013 [facility] [address] [id number] [address] [place] [address], [place] [id number] 07 Jan, 2013 [facility] [address] [id number] [address] [place] [address], [place] [id number] 04 Jan, 2013 [facility] [address] [id number] [address] [place] [address], [place] [id number] 28 Dec, 2012 [facility] [address] [id number] [address] [place] [address], [place] [id number] Dec, [facility] [address] [id number] [address] [place] [address], [place] [id number] 13 Dec, 2012 [facility] [address] [id number] [address] [place] [address], [place] [address] Dec, [facility] [address] [id number] [address] [place] [address], [place] [id number] 07 Dec, 2012 [facility] [address] [id number] [address] [place] [address], [place] [id number] 06 Dec, 2012 [facility] [address] [id number] [address] [place] [address], [place] [id number] 05 Dec, 2012 [facility] [address] [id number] [address] [place] [address], [place] [address] Nov, [facility] [address] [id number] [address] [place] [address], [place] [id number] 24 Nov, 2012 [facility] [address] [id number] [address] [place] [address], [place] [id number] 18 Nov, 2012 [facility] [address] [id number] [address] [place] [address], [place] [address] 15 Nov, 2012 [facility] [address] [id number] [address] [place] [address], [place] [id number] Nov, [facility] [address] [id number] [address] [place] [address], [place] [id number] Nov, [facility] [address] [id number] [address] [place] [address], [place] [address] Nov, [facility] [address] [id number] [address] [place] [address], [place] [id number] Oct, [facility] [address] [id number] [address] [place] [address], [place] [id number] 31 Oct, 2012 [facility] [address] [id number] [address] [place] [address], [place] [id number] Oct, [facility] [address] [id number] [address] [place] [address], [place] [address] Oct, [facility] [address] [id number] [address] [place] [address], [place] [id number] Oct, [facility] [address] [id number] [address] [place] [address], [place] [id number] 17 Oct, 2012 [facility] [address] [id number] [address] [place] [address], [place] [id number] 07 Oct, 2012 [facility] [address] [id number] [address] [place] [address], [place] [id number] Oct, [facility] [address] [id number] [address] [place] [address], [place] [address] Oct, [facility] [address] [id number] [address] [place] [address], [place] [id number] Oct, [facility] [address] [id number] [address] [place] [address], [place] [id number] Oct, [facility] [address] [id number] [address] [place] [address], [place] [id number] Oct, [facility] [address] [id number] [address] [place] [address], [place] [address] Sep, [facility] [address] [id number] [address] [place] [address], [place] [id number] Sep, [facility] [address] [id number] [address] [place] [address], [place] [id number] Sep, [facility] [address] [id number] [address] [place] [address], [place] [address] Sep, [facility] [address] [id number] [address] [place] [address], [place] [id number] Sep, [facility] [address] [id number] [address] [place] [address], [place] [id number] Sep, [facility] [address] [id number] [address] [place] [address], [place] [address] Sep, [facility] [address] [id number] [address] [place] [address], [place] [id number] Sep, [facility] [address] [id number] [address] [place] [address], [place] [id number] Sep, [facility] [address] [id number] [address] [place] [address], [place] [id number] Sep, [facility] [address] [id number] [address] [place] [address], [place] [id number] Sep, [facility] [address] [id number] [address] [place] [address], [place] [address] Aug, [facility] [address] [id number] [address] [place] [address], [place] [address] Aug, [facility] [address] [id number] [address] [place] [address], [place] [address] Aug, [facility] [address] [id number] [address] [place] [address], [place] [address] Aug, [facility] [address] [id number] [address] [place] [address], [place] [address] Aug, [facility] [address] [id number] [address] [place] [address], [place] [address] Aug, [facility] [address] [id number] [address] [place] [id number] Aug, [facility] [address] [id number] [address] [place] [address], [place] [id number] Aug, [facility] [address] [id number] [address] [place] [id number] Aug, [facility] [address] [id number] [address] [place] [address] Aug, [facility] [address] [id number] [address] [place] [id number] 22 Jul, 2012 [facility] [address] [id number] [address] [place] [address], [place] [id number] 20 Jul, 2011 [facility] [address] [id number] [address] [place] [id number] 10 Jul, 2011 [facility] [address] [id number] [address] [place] [id number] 06 Jul, 2012 [facility] [address] [id number] [address] [place] [address], [place] [id number] Jun, [facility] [address] [id number] [address] [place] [address], [place] [id number] Jun, [facility] [address] [id number] [address] [place] [address], [place] [id number] Jun, [facility] [address] [id number] [address] [place] [address], [place] [id number] Jun, [facility] [address] [id number] [address] [place] [address], [place] [id number] Jun, [facility] [address] [id number] [address] [place] [address], [place] [address] Jun, [facility] [address] [id number] [address] [place] [address], [place] [address] Jun, [facility] [address] [id number] [address] [place] [address], [place] [address] May, [facility] [address] [id number] [address] [place] [address], [place] [address] May, [facility] [address] [id number] [address] [place] [address], [place] [id number] May, [facility] [address] [id number] [address] [place] [address], [place] [address] May, [facility] [address] [id number] [address] [place] [address], [place] [id number] May, [facility] [address] [id number] [address] [place] [address], [place] [address] Apr, [facility] [address] [id number] [address] [place] [address], [place] [id number] Apr, [facility] [address] [id number] [address] [place] [address], [place] [id number] Apr, [facility] [address] [id number] [address] [place] [address], [place] [id number] Apr, [facility] [address] [id number] [address] [place] [address], [place] [id number] Apr, [facility] [address] [id number] [address] [place] [address], [place] [id number] March, [facility] [address] [id number] [address] [place] [address], [place] [id number] March, [facility] [address] [id number] [address] [place] [address], [place] [id number] March, [facility] [address] [id number] [address] [place] [address], [place] [id number] March, [facility] [address] [id number] [address] [place] [address], [place] [id number] March, [facility] [address] [id number] [address] [place] [address], [place] [id number] March, [facility] [address] [id number] [address] [place] [address], [place] [id number] March, [facility] [address] [id number] [address] [place] [address], [place] [id number] March, [facility] [address] [id number] [address] [place] [address], [place] [id number] March, [facility] [address] [id number] [address] [place] [address], [place] [id number] March, [facility] [address] [id number] [address] [place] [address], [place] [id number] Feb, [facility] [address] [id number] [address] [place] [address], [place] [id number] Feb, [facility] [address] [id number] [address] [place] [address], [place] [id number] Feb, [facility] [address] [id number] [address] [place] [address], [place] [id number] Feb, [facility] [address] [id number] [address] [place] [address], [place] [id number] Feb, [facility] [address] [id number] [address] [place] [address], [place] [id number] Feb, [facility] [address] [id number] [address] [place] [address], [place] [id number] Feb, [facility] [address] [id number] [address] [place] [address], [place] [id number] Feb, [facility] [address] [id number] [address] [place] [address], [place] [id number] Feb, [facility] [address] [id number] [address] [place] [address], [place] [id number] Jan, [facility] [address] [id number] [address] [place] [address], [place] [id number] Jan, [facility] [address] [id number] [address] [place] [address], [place] [id number] Jan, [facility] [address] [id number] [address] [place] [address], [place] [id number] Jan, [facility] [address] [id number] [address] [place] [address], [place] [id number] Dec, [facility] [address] [id number] [address] [place] [address], [place] [id number] Dec, [facility] [address] [id number] [address] [place] [address], [place] [id number] Nov, [facility] [address] [id number] [address] [place] [address], [place] [id number] Nov, [facility] [address] [id number] [address] [place] [address], [place] [id number] Nov, [facility] [address] [id number] [address] [place] [address], [place] [id number] 16 Nov, 2011 [facility] [address] [id number] [address] [place] [address], [place] [id number] Nov, [facility] [address] [id number] [address] [place] [id number] Oct, [facility] [address] [id number] [address] [place] [id number] Oct, [facility] [address] [id number] [address] [place] [id number] Oct, [facility] [address] [id number] [address] [place] [id number] Oct, [facility] [address] [id number] [address] [place] [id number] Oct, [facility] [address] [facility] [id number] [address] [place] [id number] Oct, [facility] [address] [id number] [address] [place] [id number] Oct, [facility] [address] [facility] [id number] [address] [place] [id number] Oct, [facility] [address] [facility] [id number] [address] [place] [id number] Sep, IMMUNIZATIONS No Known Immunizations SOCIAL HISTORY [...] discharged 11/27/2017 11/26/2017 Hospitalization History [facility]- Went Unrepsonsive, Hit head 2017 Hospitalization History [facility]- Back Pain 8
--- OUTSIDE RECORDS SUMMARY | 2020-06-18 15:49 | XMS REPORT ---
Author Author Sanjuanita Abdul Doctor Organization [facility] Address Unknown Phone Unavailable Care Team Providers Care Transit Police Officer Name Role Phone Migration, Doctor Unavailable Unavailable PROBLEMS Type Condition ICD9-CM Code BRN95-YN Code Onset Dates Condition S tatus SNOMED Code Problem Hypertension I10 Active 0303200 3 Problem Hyperlipidemia E78.5 Active 28778 004 Problem Coronary artery disease I25.10 Active 26609068 Problem Low back pain M54.5 Active 706650 009 Problem Other chronic pain G89.29 Active 8 0569026 Problem Ventral hernia without obstruction or gangrene K43 .9 Active 405780563 Problem Type 2 diabetes mellitus wit hout complication, without long-term current use of insulin E11.9 Active 541956113 Problem Anxiety F41.9 Active 23511245 Problem Peripheral vascular disease I73.9 Ac tive 349798058 Problem Insomnia G47.00 Active 229066867 Problem Microcytic anemia D50.9 Active 23 9846072 Problem Pharyngeal dysphagia R13.13 Active 83493220881313 Problem Other iron deficiency anemia D50.8 A ctive 20110675 Problem Reactive depression F32.9 Active 45738042 Problem Paroxysmal atrial fibrillation I48.0 Active 150235681 Problem Postmenopausal atrophic vaginitis N95.2 Active 52391450 Problem Encounter for suprapubic catheter care Z43.5 Active 686454598 Problem Neurogenic bladder N31.9 Active 3 [id number] ALLERGIES No Information ENCOUNTERS Encounter Location Date Diagnosis [facility] [address] [facility] [id number] [address] [place] [phone] March, [facility] [address] [facility] [id number] [address] [place] [address] March, Anxiety F41.9 and Strain of right shoulder, subsequent encounter S46.911D [facility] [address] [facility] [id number] [address] [place] [phone] Feb, Anxiety F41.9 and Strain of right shoulder, subsequent encounter S46.911D [facility] [address] [id number] [address] [place] [address] 24 Jan, 2020 Anxiety F41.9 and Strain of right shoulder, subsequent encounter S46.911D [facility] [address] [id number] [address] [place] [phone] 17 Jan, 2020 Via [facility] [employer] [address] [place] [id number] Jan, Neurogenic bladder N31.9 [facility] [address] [id number] [address] [place] [phone] Dec, 2019 [facility] [address] [id number] [address] [place] [phone] Dec, 2019 [place] [address] [id number] [address] [place] [address] Dec, Anxiety F41.9 and Strain of right shoulder, subsequent encounter S46.911D [facility] [address] [id number] [address] [place] [phone] 10 Dec, 2019 Other iron deficiency anemia D50.8 [facility] [address] [id number] [address] [place] [phone] 04 Dec, 2019 Via [facility] [employer] [address] [place] [id number] Dec, Encounter for suprapubic catheter care Z 43.5 and Microcytic anemia D50.9 [facility] [address] [id number] [address] [place] [phone] 03 Dec, 2019 [facility] [address] [id number] [address] [place] [phone] Nov, Anxiety F41.9 and Strain of right shoulder, subsequent encounter S46.911D [facility] [address] [id number] [address] [place] [phone] Nov, Hypertension I10 [facility] [address] [place] [id number] Nov, Pneumonia of both lungs due to infectiou s organism, unspecified part of lung J18.9 and Suprapubic catheter Z93.59 [facility] [address] [id number] [address] [place] [phone] Nov, Hypertension I10 and Reactiv e depression F32.9 [facility] [address] [id number] [address] [place] [phone] Oct, Strain of right shoulder, scherer bsequent encounter S46.911D and Anxiety F41.9 [place] [address] [id number] [address] [place] [phone] Oct, Via [facility] [employer] [address] [place] [id number] Oct, Suprapubic catheter Z93.59 and Candidias is, intertriginous B37.2 [place] [address] [id number] [address] [place] [address] Oct, Suprapubic catheter Z93.59 [facility] [address] [id number] [address] [place] [phone] Oct, Anxiety F41.9 and Strain of right shoulder, subsequent encounter S46.911D [facility] [address] [id number] [address] [place] [phone] Sep, [facility] [address] [id number] [address] [place] [phone] Sep, [facility] [address] [id number] [address] [place] [phone] Sep, Via [facility] [address] [place] [id number] Sep, Suprapubic catheter Z93.59 [facility] [address] [id number] [address] [place] [address] Sep, Anxiety F41.9 and Strain of right shoulder, subsequent encounter S46.911D [facility] [address] [id number] [address] [place] [phone] Aug, [facility] [address] [id number] [address] [place] [phone] Aug, [facility] [address] [id number] [address] [place] [id number] Aug, Anxiety F41.9 and Strain of right shoulder, subsequent encounter S46.911D [facility] [address] [place] [id number] Aug, Suprapubic catheter Z93.59 [facility] [address] [id number] [address] [place] [address] Jul, Strain of right shoulder, scherer bsequent encounter S46.911D and Anxiety F41.9 [facility] [address] [id number] [address] [place] [address] Jul, Anxiety F41.9 [facility] [address] [id number] [address] [place] [phone] Jun, [facility] [address] [id number] [address] [place] [phone] Jun, [facility] [address] [id number] [address] [place] [phone] Jun, [facility] [address] [id number] [address] [place] [address] Jun, Strain of right shoulder, scherer bsequent encounter S46.911D [facility] [address] [id number] [address] [place] [phone] Jun, Strain of right shoulder, scherer bsequent encounter S46.911D [facility] [address] [id number] [address] [place] [phone] Jun, Anxiety F41.9 Via [facility] [employer] [address] [place] [id number] Jun, Neurogenic bladder N31.9 and Anxiety F41 .9 Via [facility] [employer] [address] [place] [id number] May, Anxiety F41.9 [place] [address] [id number] [address] [place] [address] May, Dysuria R30.0 [place] [address] [id number] [address] [place] [address] May, Strain of right shoulder, scherer bsequent encounter S46.911D and Anxiety F41.9 [place] [address] [id number] [address] [place] [address] Apr, [facility] [address] [place] [id number] Apr, Strain of right shoulder, subsequent enc ounter S46.911D [place] [address] [facility] [id number] [address] [place] [id number] 14 Apr, 2019 Strain of right shoulder, scherer bsequent encounter S46.911D and Anxiety F41.9 Via [facility] [employer] [address] [place] [id number] 13 Apr, 2019 Type 2 diabetes mellitus without complic ation, without long-term current use of insulin E11.9 and Neurogenic bladder N31.9 Via [facility] [employer] [address] [place] [id number] Apr, Strain of right shoulder, subsequent enc ounter S46.911D ; History of GI bleed Z87.19 ; Neurogenic bladder N31.9 and Reactive depression F32.9 [place] [address] [id number] [address] [place] [address] 10 Apr, 2019 Acute pain of left shoulder M25.512 [place] [address] [id number] [address] [place] [phone] 07 Apr, 2019 [place] [address] [id number] [address] [place] [phone] 06 Apr, 2019 Anxiety F41.9 and 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 [facility] [address] [place] [id number] March, Gastrointestinal hemorrhage associated w ith acute gastritis K29.01 [facility] [address] [id number] [address] [place] [phone] March, Via [employer] [address] [place] [id number] March, Bronchitis J40 [facility] [address] [id number] [address] [place] [address] March, Cough R05 [facility] [address] [id number] [address] [place] [address] March, Other chronic pain G89.29 [facility] [address] [id number] [address] [place] [phone] March, Anxiety F41.9 [facility] [address] [id number] [address] [place] [phone] March, [facility] [address] [id number] [address] [place] [address] Feb, Other chronic pain G89.29 [facility] [address] [id number] [address] [place] [address] Feb, Anxiety F41.9 [facility] [address] [id number] [address] [place] [phone] Feb, Other chronic pain G89.29 Via [employer] [address] [place] [id number] Feb, Neurogenic bladder N31.9 and Suprapubic catheter Z93.59 [facility] [address] [id number] [address] [place] [phone] Jan, Anxiety F41.9 [facility] [address] [id number] [address] [place] [phone] Dec, Anxiety F41.9 [facility] [address] [id number] [address] [place] [phone] Dec, Other chronic pain G89.29 an d Anxiety F41.9 [facility] [address] [id number] [address] [place] [address] Dec, Via [employer] [address] [place] [id number] Dec, Neurogenic bladder N31.9 and Suprapubic catheter Z93.59 [facility] [address] [id number] [address] [place] [phone] Nov, Other chronic pain G89.29 an d Anxiety F41.9 [facility] [address] [id number] [address] [place] [phone] Nov, Via [employer] [address] [place] [id number] Nov, Suprapubic catheter Z93.59 [facility] [address] [id number] [address] [place] [phone] Oct, Other chronic pain G89.29 an d Anxiety F41.9 [facility] [address] [id number] [address] [place] [phone] Oct, [facility] [address] [id number] [address] [place] [phone] Oct, Suprapubic catheter Z93.59 [facility] [address] [id number] [address] [place] [phone] Oct, Via [employer] [address] [place] [id number] Oct, [facility] [address] [id number] [address] [place] [address] Oct, Anxiety F41.9 [facility] [address] [id number] [address] [place] [phone] Oct, Anxiety F41.9 Via [employer] [address] [place] [id number] Oct, Other chronic pain G89.29 [facility] [address] [id number] [address] [place] [phone] 14 Sep, 2018 Other chronic pain G89.29 Via [employer] [address] [place] [id number] Sep, Suprapubic catheter Z93.59 and Cervicalg ia M54.2 [facility] [address] [id number] [address] [place] [phone] Sep, [facility] [address] [id number] [address] [place] [phone] Sep, [facility] [address] [id number] [address] [place] [phone] Sep, Via [employer] [address] [place] [id number] Aug, Cystitis N30.90 [facility] [address] [id number] [address] [place] [phone] Aug, [facility] [address] [id number] [address] [place] [phone] Aug, Other chronic pain G89.29 [facility] [address] [id number] [address] [place] [phone] Aug, Via [employer] [address] [place] [id number] Aug, Encounter for suprapubic catheter care Z 43.5 [facility] [address] [id number] [address] [place] [phone] Jul, Via [employer] [address] [place] [id number] Jul, [facility] [address] [id number] [address] [place] [phone] Jul, Other chronic pain G89.29 [facility] [address] [id number] [address] [place] [phone] Jul, [facility] [address] [id number] [address] [place] [address] Jul, Via [employer] [address] [place] [id number] Jun, Postmenopausal atrophic vaginitis N95.2 [place] [address] [id number] [address] [place] [address] Jun, Other chronic pain G89.29 [place] [address] [id number] [address] [place] [address] Jun, Via [employer] [address] [place] [id number] May, Anxiety F41.9 ; Type 2 diabetes mellitus without complication, without long-term current use of insulin E11.9 ; Hypertension I10 ; Low back pain M54.5 ; Paroxysmal atrial fibrillation I48.0 and 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 [place] [address] [id number] [address] [place] [address] May, Other chronic pain G89.29 Via [employer] [address] [place] [id number] May, Low back pain M54.5 [place] [address] [id number] [address] [place] [address] May, [place] [address] [id number] [address] [place] [address] Apr, Other chronic pain G89.29 [place] [address] [id number] [address] [place] [address] Apr, [place] [address] [id number] [address] [place] [address] Apr, Via [employer] [address] [place] [id number] Apr, Closed compression fracture of L3 lumbar vertebra with routine healing, subsequent encounter S32.030D Via [employer] [address] [place] [id number] Apr, Low back pain M54.5 Via [employer] [address] [place] [id number] Apr, Coccydynia M53.3 [facility] [address] [id number] [address] [place] [address] March, [facility] [address] [id number] [address] [place] [address] March, Other chronic pain G89.29 [facility] [address] [id number] [address] [place] [address] March, [facility] [address] [id number] [address] [place] [address] March, [facility] [address] [id number] [address] [place] [address] Feb, [facility] [address] [id number] [address] [place] [address] Feb, Other chronic pain G89.29 Via [employer] [address] [place] [id number] Feb, Other chronic pain G89.29 and Anxiety F4 1.9 [facility] [address] [id number] [address] [place] [address] Feb, [facility] [address] [id number] [address] [place] [phone] Jan, [facility] [address] [id number] [address] [place] [phone] Jan, [facility] [address] [id number] [address] [place] [address] Jan, [facility] [address] [id number] [address] [place] [phone] Jan, [facility] [address] [id number] [address] [place] [address] Dec, Via [employer] [address] [place] [id number] Dec, Peripheral vascular disease I73.9 ; 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 ; Other chronic pain G89.29 ; Anxiety F41.9 ; Reactive depression F32.9 ; Insomnia G47.00 and Type 2 diabetes mellitus without complication, without long-term current use of insulin E11.9 [facility] [place] [facility] ADRIENNE SANCHEZ [id number] [address] Nov, [facility] [address] [id number] [place] [facility] [place] [place] [id number] Nov, Anxiety F41.9 [facility] [address] [facility] [id number] [address] [place] [address] Nov, [place] [address] [id number] [place] [facility] [place] [id number] Nov, Anxiety F41.9 Via [employer] [address] [place] [id number] Nov, Status post surgery Z98.890 ; Confused R 41.0 ; Anxiety F41.9 and Other chronic pain G89.29 [place] [address] [id number] [place] [id number] Nov, Other chronic pain G89.29 [place] [address] [facility] [id number] [address] [place] [address] Oct, [place] [address] [id number] [place] [id number] Oct, Other chronic pain G89.29 [place] [address] [facility] [id number] [address] [place] [address] Oct, Anxiety F41.9 [place] [address] [id number] [place] [id number] Sep, Other chronic pain G89.29 [place] [address] [id number] [place] [id number] Sep, Via [employer] [address] [place] [id number] Aug, Dysuria R30.0 and Anxiety F41.9 [place] [address] [id number] [address] [place] [phone] 16 Aug, 2017 [facility] [address] [id number] [place] [id number] Aug, Other chronic pain G89.29 [facility] [address] [id number] [address] [place] [address] Jul, Other chronic pain G89.29 [facility] [address] [id number] [place] [id number] Jun, [facility] [address] [id number] [place] [id number] Jun, Other chronic pain G89.29 [facility] [address] [id number] [address] [place] [address] Jun, [facility] [address] [facility] [id number] [address] [place] [phone] May, Other chronic pain G89.29 [facility] [address] [id number] [address] [place] [phone] Apr, Other chronic pain G89.29 Via [facility] [address] [place] [id number] Apr, Reactive depression F32.9 and Pharyngeal dysphagia R13.13 [facility] [address] [facility] [id number] [address] [place] [phone] Apr, Urinary tract infection with out hematuria, site unspecified N39.0 [facility] [address] [facility] [id number] [address] [place] [address] March, Other chronic pain G89.29 [facility] [address] [id number] [address] [place] [phone] Feb, Other chronic pain G89.29 [facility] [address] [id number] [address] [place] [address] Feb, [facility] [address] [id number] [place] [id number] Feb, Via [employer] [address] [place] [id number] Feb, Dysuria R30.0 and Ventral hernia without obstruction or gangrene K43.9 [facility] [address] [id number] [address] [place] [address] Jan, Other chronic pain G89.29 [facility] [address] [id number] [place] [id number] Dec, Other chronic pain G89.29 [facility] [address] [id number] [address] [place] [address] Nov, Other chronic pain G89.29 Via [employer] [address] [place] [id number] Nov, Lymphadenitis I88.9 [facility] [address] [id number] [address] [place] [phone] Nov, Other chronic pain G89.29 [facility] [address] [id number] [address] [place] [phone] Nov, [facility] [address] [id number] [place] [id number] Nov, Other chronic pain G89.29 Via [facility] [employer] [address] [place] [id number] Oct, Low back pain M54.5 ; Hypertension I10 a nd Type 2 diabetes mellitus without complication, without long-term current use of insulin E11.9 [facility] [address] [id number] [address] [place] [id number] Oct, [facility] [address] [id number] [address] [place] [phone] Oct, [facility] [address] [id number] [address] [place] [phone] Oct, [facility] [address] [id number] [address] [place] [phone] Oct, [facility] [address] [id number] [address] [place] [phone] Sep, [facility] [address] [id number] [address] [place] [phone] Sep, [facility] [address] [id number] [address] [place] [phone] Aug, Other chronic pain G89.29 [facility] [address] [id number] [address] [place] [address] [id number] Jul, [facility] [address] [id number] [address] [place] [id number] Jul, [facility] [address] [id number] [address] [place] [address] Jul, [facility] [address] [id number] [address] [place] [address] Jun, [facility] [address] [id number] [address] [place] [address] Jun, [facility] [address] [place] [id number] Jun, Low back pain M54.5 ; Other chronic pain G89.29 and Coronary artery disease I25.10 [facility] [address] [id number] [address] [place] [address] Jun, [facility] [address] [id number] [address] [place] [phone] May, [facility] [address] [id number] [address] [place] [address] May, [facility] [address] [id number] [address] [place] [address] May, Other chronic pain G89.29 [facility] [address] [id number] [address] [place] [address] May, [facility] [address] [id number] [address] [place] [address] 28 Apr, 2016 [facility] [address] [id number] [address] [place] [address] 17 Apr, 2016 Acute cystitis without hemat uria N30.00 [facility] [address] [id number] [address] [place] [address] 16 Apr, 2016 Acute cystitis without hemat uria N30.00 ; Coronary artery disease I25.10 ; Low back pain M54.5 and Other chronic pain G89.29 [facility] [address] [id number] [address] [place] [address] 13 Apr, 2016 Other chronic pain G89.29 [facility] [address] [id number] [address] [place] [address] March, Other chronic pain G89.29 [facility] [address] [id number] [address] [place] [address] 18 Feb, 2016 [facility] [address] [id number] [address] [place] [address] 15 Feb, 2016 Arthritis M19.90 [facility] [address] [id number] [address] [place] [address] Feb, [facility] [address] [id number] [address] [place] [address] 30 Jan, 2016 [facility] [address] [id number] [address] [place] [address] Jan, [facility] [address] [id number] [address] [place] [address] Jan, Other chronic pain G89.29 [facility] [address] [id number] [address] [place] [address] Jan, Hypertension I10 ; Coronary artery disease I25.10 and Insomnia G47.00 [facility] [address] [id number] [address] [place] [address] Jan, [facility] [address] [id number] [address] [place] [address] Dec, Right hip pain M25.551 [facility] [address] [id number] [address] [place] [address] Dec, [facility] [address] [id number] [address] [place] [address] Dec, [facility] [address] [id number] [address] [place] [address] Dec, [facility] [address] [id number] [address] [place] [address] Dec, Other chronic pain G89.29 [facility] [address] [id number] [address] [place] [address] Dec, [facility] [address] [id number] [address] [place] [address] Nov, [facility] [address] [id number] [address] [place] [address] Nov, Other chronic pain G89.29 [facility] [address] [id number] [address] [place] [address] Nov, Right hip pain M25.551 and C oronary artery disease I25.10 [facility] [address] [id number] [address] [place] [id number] Nov, Other chronic pain G89.29 [facility] [address] [id number] [address] [place] [phone] Oct, [facility] [address] [id number] [address] [place] [phone] Oct, [facility] [address] [id number] [address] [place] [phone] Sep, [facility] [address] [id number] [address] [place] [address] Sep, [facility] [address] [id number] [address] [place] [id number] Aug, [facility] [address] [id number] [address] [place] [address] Aug, Hypertension I10 ; Coronary artery disease I25.10 and Arthritis M19.90 [facility] [address] [id number] [address] [place] [id number] Jun, [facility] [address] [id number] [address] [place] [address] Jun, Essential hypertension, jayson gn 401.1 ; Other chronic pain 338.29 and Chronic airway obstruction, not elsewhere classified 496 [facility] [address] [id number] [address] [place] [phone] Jun, [facility] [address] [id number] [address] [place] [address] Jun, [facility] [address] [id number] [address] [place] [phone] Jun, [facility] [address] [id number] [address] [place] [phone] May, [facility] [address] [id number] [address] [place] [phone] May, [facility] [address] [id number] [address] [place] [id number] Apr, [facility] [address] [id number] [address] [place] [phone] Apr, [facility] [address] [id number] [address] [place] [phone] Apr, [facility] [address] [id number] [address] [place] [phone] March, [facility] [address] [id number] [address] [place] [id number] March, [facility] [address] [id number] [address] [place] [phone] March, [facility] [address] [id number] [address] [place] [address], [place] [address] March, [facility] [address] [id number] [address] [place] [address], [place] [address] March, Sialadenitis 527.2 [facility] [address] [id number] [address] [place] [address], [place] [address] Feb, [facility] [address] [id number] [address] [place] [address], [place] [address] Feb, [facility] [address] [id number] [address] [place] [address], [place] [address] Feb, [facility] [address] [id number] [address] [place] [address], [place] [address] Feb, [facility] [address] [id number] [address] [place] [phone] Feb, [facility] [address] [id number] [address] [place] [address], [place] [address] Jan, [facility] [address] [id number] [address] [place] [address], [place] [address] Jan, [facility] [address] [id number] [address] [place] [address], [place] [address] Jan, [facility] [address] [id number] [address] [place] [address], [place] [address] Jan, [facility] [address] [id number] [address] [place] [id number] Jan, [facility] [address] [id number] [address] [place] [phone] Jan, [facility] [address] [id number] [address] [place] [address], [place] [address] Dec, [facility] [address] [id number] [address] [place] [phone] Dec, [facility] [address] [id number] [address] [place] [address], [place] [address] Dec, [facility] [address] [id number] [address] [place] [address], [place] [address] Dec, [facility] [address] [id number] [address] [place] [address], [place] [address] Dec, [facility] [address] [id number] [address] [place] [address], [place] [address] Dec, [facility] [address] [id number] [address] [place] [address], [place] [address] Nov, [facility] [address] [id number] [address] [place] [address], [place] [address] Nov, [facility] [address] [id number] [address] [place] [address], [place] [address] Nov, [facility] [address] [id number] [address] [place] [address], [place] [address] Nov, [facility] [address] [id number] [address] [place] [address], [place] [address] Nov, [facility] [address] [id number] [address] [place] [address], [place] [address] Nov, [facility] [address] [id number] [address] [place] [address], [place] [address] Nov, [facility] [address] [id number] [address] [place] [address], [place] [address] Nov, [facility] [address] [id number] [address] [place] [address], [place] [address] Nov, [facility] [address] [id number] [address] [place] [address], [place] [address] Nov, [facility] [address] [id number] [address] [place] [address], [place] [address] Nov, [facility] [address] [id number] [address] [place] [address], [place] [address] Nov, [facility] [address] [id number] [address] [place] [address], [place] [address] Nov, [facility] [address] [id number] [address] [place] [address], [place] [address] Nov, [facility] [address] [id number] [address] [place] [address], [place] [address] Oct, [facility] [address] [id number] [address] [place] [address], [place] [address] Oct, [facility] [address] [id number] [address] [place] [address], [place] [address] Oct, [facility] [address] [id number] [address] [place] [address], [place] [address] Oct, [facility] [address] [id number] [address] [place] [address], [place] [address] Oct, [facility] [address] [id number] [address] [place] [address], [place] [address] Oct, [facility] [address] [id number] [address] [place] [address], [place] [address] Oct, [facility] [address] [id number] [address] [place] [address], [place] [address] Oct, [facility] [address] [id number] [address] [place] [address], [place] [address] Oct, [facility] [address] [id number] [address] [place] [address], [place] [address] Sep, [facility] [address] [id number] [address] [place] [address], [place] [address] Sep, [facility] [address] [id number] [address] [place] [address], [place] [address] Sep, [facility] [address] [id number] [address] [place] [address], [place] [address] Sep, [facility] [address] [id number] [address] [place] [address], [place] [address] Sep, [facility] [address] [id number] [address] [place] [address], [place] [address] Sep, [facility] [address] [id number] [address] [place] [address], [place] [address] Sep, [facility] [address] [id number] [address] [place] [address], [place] [address] Sep, [facility] [address] [id number] [address] [place] [address], [place] [address] Sep, [facility] [address] [id number] [address] [place] [address], [place] [address] Sep, [facility] [address] [id number] [address] [place] [address], [place] [address] Sep, [facility] [address] [id number] [address] [place] [address], [place] [address] Sep, [facility] [address] [id number] [address] [place] [address], [place] [address] Aug, [facility] [address] [id number] [address] [place] [address], [place] [address] Aug, [facility] [address] [id number] [address] [place] [address], [place] [address] Aug, [facility] [address] [id number] [address] [place] [address], [place] [address] Aug, [facility] [address] [id number] [address] [place] [address], [place] [address] Aug, [facility] [address] [id number] [address] [place] [address], [place] [address] Aug, [facility] [address] [id number] [address] [place] [address], [place] [address] Aug, [facility] [address] [id number] [address] [place] [address], [place] [address] Aug, [facility] [address] [id number] [facility] [place] [address] 30 Jul, 2013 [facility] [address] [id number] [address] [place] [address], [place] [address] 30 Jul, 2013 [facility] [address] [id number] [address] [place] [address], [place] [address] 30 Jul, 2013 [facility] [address] [id number] [address] [place] [address], [place] [address] 30 Jul, 2013 [facility] [address] [id number] [address] [place] [address], [place] [address] 25 Jul, 2013 [facility] [address] [id number] [address] [place] [address], [place] [address] 25 Jul, 2013 [facility] [address] [id number] [address] [place] [address], [place] [address] 15 Jul, 2014 [facility] [address] [id number] [address] [place] [address], [place] [address] 15 Jul, 2014 [facility] [address] [id number] [address] [place] [address], [place] [address] 11 Jul, 2014 [facility] [address] [id number] [address] [place] [address], [place] [address] Jul, [facility] [address] [id number] [address] [place] [address], [place] [address] Jun, [facility] [address] [id number] [address] [place] [address], [place] [address] Jun, [facility] [address] [id number] [address] [place] [address], [place] [address] Jun, [facility] [address] [id number] [address] [place] [address], [place] [address] Jun, [facility] [address] [id number] [address] [place] [address], [place] [address] Jun, [facility] [address] [id number] [address] [place] [address], [place] [address] Jun, [facility] [address] [id number] [facility] [place] [address] Jun, [facility] [address] [id number] [facility] [place] [address] Jun, [facility] [address] [id number] [facility] [place] [address] Jun, [facility] [address] [id number] [facility] [place] [address] Jun, [facility] [address] [id number] [address] [place] [address], [place] [address] Jun, [facility] [address] [id number] [address] [place] [address], [place] [address] Jun, [facility] [address] [id number] [address] [place] [address], [place] [address] Jun, [facility] [address] [id number] [address] [place] [address], [place] [address] Jun, [facility] [address] [id number] [address] [place] [address], [place] [address] Jun, [facility] [address] [id number] [address] [place] [address], [place] [address] Jun, [facility] [address] [id number] [address] [place] [address], [place] [address] Jun, [facility] [address] [id number] [address] [place] [address], [place] [address] Jun, [facility] [address] [id number] [address] [place] [address], [place] [address] Jun, [facility] [address] [id number] [address] [place] [address], [place] [address] Jun, [facility] [address] [id number] [address] [place] [address], [place] [address] Jun, [facility] [address] [id number] [facility] [place] [address] Jun, [facility] [address] [id number] [facility] [place] [address] May, [facility] [address] [id number] [facility] [place] [address] May, [facility] [address] [id number] [address] [place] [address], [place] [address] May, [facility] [address] [id number] [address] [place] [address], [place] [address] May, [facility] [address] [id number] [address] [place] [address], [place] [address] May, [facility] [address] [id number] [address] [place] [address], [place] [address] May, [facility] [address] [id number] [address] [place] [address], [place] [address] May, [facility] [address] [id number] [address] [place] [address], [place] [address] May, [facility] [address] [id number] [address] [place] [address], [place] [address] May, [facility] [address] [id number] [address] [place] [address], [place] [address] May, [facility] [address] [id number] [address] [place] [address], [place] [address] May, [facility] [address] [id number] [address] [place] [address], [place] [address] May, [facility] [address] [id number] [address] [place] [address], [place] [address] May, [facility] [address] [id number] [address] [place] [address], [place] [address] Apr, [facility] [address] [id number] [address] [place] [address], [place] [address] Apr, [facility] [address] [id number] [facility] [place] [address] Apr, [facility] [address] [id number] [address] [place] [address], [place] [address] Apr, [facility] [address] [id number] [facility] [place] [address] Apr, [facility] [address] [id number] [address] [place] [address], [place] [address] Apr, [facility] [address] [id number] [address] [place] [address], [place] [address] Apr, [facility] [address] [id number] [address] [place] [address], [place] [address] Apr, [facility] [address] [id number] [address] [place] [address], [place] [address] Apr, [facility] [address] [id number] [address] [place] [address], [place] [address] March, [facility] [address] [id number] [address] [place] [address], [place] [address] March, [facility] [address] [id number] [address] [place] [address], [place] [address] March, [facility] [address] [id number] [address] [place] [address], [place] [address] March, [facility] [address] [id number] [address] [place] [address], [place] [address] March, [facility] [address] [id number] [address] [place] [address], [place] [address] March, [facility] [address] [id number] [address] [place] [address], [place] [address] March, [facility] [address] [id number] [address] [place] [address], [place] [address] March, [facility] [address] [id number] [address] [place] [address], [place] [address] March, [facility] [address] [id number] [address] [place] [address], [place] [address] March, [facility] [address] [id number] [address] [place] [address], [place] [address] March, [facility] [address] [id number] [address] [place] [address], [place] [address] March, [facility] [address] [id number] [address] [place] [address], [place] [address] March, [facility] [address] [id number] [address] [place] [address], [place] [address] March, [facility] [address] [id number] [address] [place] [address], [place] [address] March, [facility] [address] [id number] [address] [place] [address], [place] [address] March, [facility] [address] [id number] [address] [place] [address], [place] [address] March, [facility] [address] [id number] [address] [place] [address], [place] [address] March, [facility] [address] [id number] [address] [place] [address], [place] [address] March, [facility] [address] [id number] [address] [place] [address], [place] [address] March, [facility] [address] [id number] [address] [place] [address], [place] [address] Feb, [facility] [address] [id number] [address] [place] [address], [place] [address] Feb, [facility] [address] [id number] [address] [place] [address], [place] [address] Feb, [facility] [address] [id number] [address] [place] [address], [place] [address] Feb, [facility] [address] [id number] [facility] [place] [address] Feb, [facility] [address] [id number] [address] [place] [address], [place] [address] Feb, [facility] [address] [id number] [address] [place] [address], [place] [address] Feb, [facility] [address] [id number] [address] [place] [address], [place] [address] Feb, [facility] [address] [id number] [address] [place] [address], [place] [address] Jan, [facility] [address] [id number] [address] [place] [address], [place] [address] Jan, [facility] [address] [id number] [address] [place] [address], [place] [address] Jan, [facility] [address] [id number] [address] [place] [address], [place] [address] Jan, [facility] [address] [id number] [address] [place] [address], [place] [address] Jan, [facility] [address] [id number] [address] [place] [address], [place] [address] Jan, [facility] [address] [id number] [address] [place], [place] [address], [place] [address] Jan, [facility] [address] [id number] [address] [place] [address], [place] [address] Jan, [facility] [address] [id number] [address] [place] [address], [place] [address] Jan, [facility] [address] [id number] [address] [place] [address], [place] [address] Jan, [facility] [address] [id number] [address] [place] [address], [place] [address] Dec, [facility] [address] [id number] [address] [place] [address], [place] [address] Dec, [facility] [address] [id number] [address] [place] [address], [place] [address] Dec, [facility] [address] [id number] [address] [place] [address], [place] [address] Dec, [facility] [address] [id number] [address] [place] [address], [place] [address] Dec, [facility] [address] [id number] [address] [place] [address], [place] [address] Dec, [facility] [address] [id number] [address] [place] [address], [place] [address] Dec, [facility] [address] [id number] [address] [place] [address], [place] [address] Dec, [facility] [address] [id number] [address] [place] [address], [place] [address] Nov, [facility] [address] [id number] [address] [place] [address], [place] [address] Nov, [facility] [address] [id number] [address] [place] [address], [place] [address] Nov, [facility] [address] [id number] [address] [place] [address], [place] [address] Nov, [facility] [address] [id number] [address] [place] [address], [place] [address] Nov, [facility] [address] [id number] [address] [place] [address], [place] [address] Nov, [facility] [address] [id number] [address] [place] [address], [place] [address] Nov, [facility] [address] [id number] [address] [place] [address], [place] [address] Nov, [facility] [address] [id number] [address] [place] [address], [place] [address] Nov, [facility] [address] [id number] [address] [place] [address], [place] [address] Nov, [facility] [address] [id number] [address] [place] [address], [place] [address] Nov, [facility] [address] [id number] [address] [place] [address], [place] [address] Nov, [facility] [address] [id number] [address] [place] [address], [place] [address] Nov, [facility] [address] [id number] [address] [place] [address], [place] [address] Oct, [facility] [address] [id number] [address] [place] [address], [place] [address] Oct, [facility] [address] [id number] [address] [place] [address], [place] [address] Oct, [facility] [address] [id number] [address] [place] [address], [place] [address] Oct, [facility] [address] [id number] [address] [place] [address], [place] [address] Oct, [facility] [address] [id number] [address] [place] [address], [place] [address] Oct, [facility] [address] [id number] [address] [place] [address], [place] [address] Oct, [facility] [address] [id number] [address] [place] [address], [place] [address] Oct, [facility] [address] [id number] [address] [place] [address], [place] [address] Oct, [facility] [address] [id number] [address] [place] [address], [place] [address] Oct, [facility] [address] [id number] [address] [place] [address], [place] [address] Oct, [facility] [address] [id number] [address] [place] [address] Oct, [facility] [address] [id number] [address] [place] [address], [place] [address] Oct, [facility] [address] [id number] [address] [place] [address] Oct, [facility] [address] [id number] [address] [place] [address] Sep, [facility] [address] [id number] [address] [place] [address] Sep, [facility] [address] [id number] [address] [place] [address], [place] [address] Sep, [facility] [address] [id number] [address] [place] [address] Sep, [facility] [address] [id number] [address] [place] [address] Sep, [facility] [address] [id number] [address] [place] [address] Sep, [facility] [address] [id number] [address] [place] [address] Sep, [facility] [address] [id number] [address] [place] [address] Sep, [facility] [address] [id number] [address] [place] [address] Sep, [facility] [address] [id number] [address] [place] [address] Sep, [facility] [address] [id number] [address] [place] [address] Aug, [facility] [address] [id number] [address] [place] [address] Aug, [facility] [address] [id number] [address] [place] [address] Aug, [facility] [address] [id number] [address] [place] [address], [place] [address] 24 Aug, 2012 [facility] [address] [id number] [address] [place] [address], [place] [address] 23 Aug, 2012 [facility] [address] [id number] [address] [place] [address], [place] [address] 23 Aug, 2012 [facility] [address] [id number] [address] [place] [address], [place] [address] 23 Aug, 2012 [facility] [address] [id number] [address] [place] [address], [place] [address] 23 Aug, 2012 [facility] [address] [id number] [address] [place] [address], [place] [address] Aug, 2012 [facility] [address] [id number] [address] [place] [address], [place] [address] 22 Aug, 2012 [facility] [address] [id number] [address] [place] [address], [place] [address] 18 Aug, 2012 [facility] [address] [id number] [address] [place] [address], [place] [address] 18 Aug, 2013 [facility] [address] [id number] [address] [place] [address], [place] [address] 18 Aug, 2012 [facility] [address] [id number] [address] [place] [address], [place] [address] 18 Aug, 2013 [facility] [address] [id number] [address] [place] [address], [place] [address] 17 Aug, 2012 [facility] [address] [id number] [address] [place] [address], [place] [address] 14 Aug, 2013 [facility] [address] [id number] [address] [place] [address], [place] [address] 14 Aug, 2013 [facility] [address] [id number] [address] [place] [address], [place] [address] Aug, [facility] [address] [id number] [address] [place] [address], [place] [address] 20 Jul, 2013 [facility] [address] [id number] [address] [place] [address], [place] [address] 19 Jul, 2013 [facility] [address] [id number] [address] [place] [address], [place] [address] 18 Jul, 2013 [facility] [address] [id number] [address] [place] [address], [place] [address] 11 Jul, 2013 [facility] [address] [id number] [address] [place] [address], [place] [address] 11 Jul, 2013 [facility] [address] [id number] [address] [place] [address], [place] [address] Jun, [facility] [address] [id number] [address] [place] [address], [place] [address] Jun, [facility] [address] [id number] [address] [place] [address], [place] [address] Jun, [facility] [address] [id number] [address] [place] [address], [place] [address] 15 Jun, 2013 [facility] [address] [id number] [address] [place] [address], [place] [address] Jun, [facility] [address] [id number] [address] [place] [address], [place] [address] Jun, [facility] [address] [id number] [address] [place] [address], [place] [address] Jun, [facility] [address] [id number] [address] [place] [address], [place] [address] Jun, [facility] [address] [id number] [address] [place] [address], [place] [address] Jun, [facility] [address] [id number] [address] [place] [address], [place] [address] Jun, [facility] [address] [id number] [address] [place] [address], [place] [address] May, [facility] [address] [id number] [address] [place] [address], [place] [address] May, [facility] [address] [id number] [address] [place] [address], [place] [address] May, [facility] [address] [id number] [address] [place] [address], [place] [address] May, [facility] [address] [id number] [address] [place] [address], [place] [address] May, [facility] [address] [id number] [address] [place] [address], [place] [address] May, [facility] [address] [id number] [address] [place] [address], [place] [address] May, [facility] [address] [id number] [address] [place] [address], [place] [address] May, [facility] [address] [id number] [address] [place] [address], [place] [address] May, [facility] [address] [id number] [address] [place] [address], [place] [address] Apr, [facility] [address] [id number] [address] [place] [address], [place] [address] Apr, [facility] [address] [id number] [address] [place] [address], [place] [address] Apr, [facility] [address] [id number] [address] [place] [address], [place] [address] Apr, [facility] [address] [id number] [address] [place] [address], [place] [address] Apr, [facility] [address] [id number] [address] [place] [address], [place] [address] Apr, [facility] [address] [id number] [address] [place] [address], [place] [address] Apr, [facility] [address] [id number] [address] [place] [address], [place] [address] March, [facility] [address] [id number] [facility] [place] [address] Feb, [facility] [address] [id number] [address] [place] [address], [place] [address] Feb, [facility] [address] [id number] [address] [place] [address], [place] [address] Feb, [facility] [address] [id number] [address] [place] [address], [place] [address] 28 Jan, 2013 [facility] [address] [id number] [address] [place] [address], [place] [address] Jan, [facility] [address] [id number] [address] [place] [address], [place] [address] 19 Jan, 2013 [facility] [address] [id number] [address] [place] [address], [place] [address] 14 Jan, 2013 [facility] [address] [id number] [address] [place] [address], [place] [address] 12 Jan, 2013 [facility] [address] [id number] [address] [place] [address], [place] [address] 08 Jan, 2013 [facility] [address] [id number] [address] [place] [address], [place] [address] 07 Jan, 2013 [facility] [address] [id number] [address] [place] [address], [place] [address] 04 Jan, 2013 [facility] [address] [id number] [address] [place] [address], [place] [address] 28 Dec, 2012 [facility] [address] [id number] [address] [place] [address], [place] [address] Dec, [facility] [address] [id number] [address] [place] [address], [place] [address] 13 Dec, 2012 [facility] [address] [id number] [address] [place] [address], [place] [address] Dec, [facility] [address] [id number] [address] [place] [address], [place] [address] 07 Dec, 2012 [facility] [address] [id number] [address] [place] [address], [place] [address] 06 Dec, 2012 [facility] [address] [id number] [address] [place] [address], [place] [address] 05 Dec, 2012 [facility] [address] [id number] [address] [place] [address], [place] [address] Nov, [facility] [address] [id number] [address] [place] [address], [place] [address] 24 Nov, 2012 [facility] [address] [id number] [address] [place] [address], [place] [address] 18 Nov, 2012 [facility] [address] [id number] [address] [place] [address], [place] [address] 15 Nov, 2012 [facility] [address] [id number] [address] [place] [address], [place] [address] Nov, [facility] [address] [id number] [address] [place] [address], [place] [address] Nov, [facility] [address] [id number] [address] [place] [address], [place] [address] Nov, [facility] [address] [id number] [address] [place] [address], [place] [address] Oct, [facility] [address] [id number] [address] [place] [address], [place] [address] 31 Oct, 2012 [facility] [address] [id number] [address] [place] [address], [place] [address] Oct, [facility] [address] [id number] [address] [place] [address], [place] [address] Oct, [facility] [address] [id number] [address] [place] [address], [place] [address] Oct, [facility] [address] [id number] [address] [place] [address], [place] [address] 17 Oct, 2012 [facility] [address] [id number] [address] [place] [address], [place] [address] 07 Oct, 2012 [facility] [address] [id number] [address] [place] [address], [place] [address] Oct, [facility] [address] [id number] [address] [place] [address], [place] [address] Oct, [facility] [address] [id number] [address] [place] [address], [place] [address] Oct, [facility] [address] [id number] [address] [place] [address], [place] [address] Oct, [facility] [address] [id number] [address] [place] [address], [place] [address] Oct, [facility] [address] [id number] [address] [place] [address], [place] [address] Sep, [facility] [address] [id number] [address] [place] [address], [place] [address] Sep, [facility] [address] [id number] [address] [place] [address], [place] [address] Sep, [facility] [address] [id number] [address] [place] [address], [place] [address] Sep, [facility] [address] [id number] [address] [place] [address], [place] [address] Sep, [facility] [address] [id number] [address] [place] [address], [place] [address] Sep, [facility] [address] [id number] [address] [place] [address], [place] [address] Sep, [facility] [address] [id number] [address] [place] [address], [place] [address] Sep, [facility] [address] [id number] [address] [place] [address], [place] [address] Sep, [facility] [address] [id number] [address] [place] [address], [place] [address] Sep, [facility] [address] [id number] [address] [place] [address], [place] [address] Sep, [facility] [address] [id number] [address] [place] [address], [place] [address] Aug, [facility] [address] [id number] [address] [place] [address], [place] [address] Aug, [facility] [address] [id number] [address] [place] [address], [place] [address] Aug, [facility] [address] [id number] [address] [place] [address], [place] [address] Aug, [facility] [address] [id number] [address] [place] [address], [place] [address] Aug, [facility] [address] [id number] [address] [place] [address], [place] [address] Aug, [facility] [address] [id number] [address] [place] [address] Aug, [facility] [address] [id number] [address] [place] [address], [place] [address] Aug, [facility] [address] [id number] [address] [place] [address] Aug, [facility] [address] [id number] [address] [place] [address] Aug, [facility] [address] [id number] [address] [place] [address] 22 Jul, 2012 [facility] [address] [id number] [address] [place] [address], [place] [address] 20 Jul, 2011 [facility] [address] [id number] [address] [place] [id number] 10 Jul, 2011 [facility] [address] [id number] [address] [place] [id number] 06 Jul, 2012 [facility] [address] [id number] [address] [place] [address], [place] [address] Jun, [facility] [address] [id number] [address] [place] [address], [place] [address] Jun, [facility] [address] [id number] [address] [place] [address], [place] [address] Jun, [facility] [address] [id number] [address] [place] [address], [place] [address] Jun, [facility] [address] [id number] [address] [place] [address], [place] [address] Jun, [facility] [address] [id number] [address] [place] [address], [place] [address] Jun, [facility] [address] [id number] [address] [place] [address], [place] [address] Jun, [facility] [address] [id number] [address] [place] [address], [place] [address] May, [facility] [address] [id number] [address] [place] [address], [place] [address] May, [facility] [address] [id number] [address] [place] [address], [place] [address] May, [facility] [address] [id number] [address] [place] [address], [place] [address] May, [facility] [address] [id number] [address] [place] [address], [place] [address] May, [facility] [address] [id number] [address] [place] [address], [place] [address] Apr, [facility] [address] [id number] [address] [place] [address], [place] [address] Apr, [facility] [address] [id number] [address] [place] [address], [place] [address] Apr, [facility] [address] [id number] [address] [place] [address], [place] [address] Apr, [facility] [address] [id number] [address] [place] [address], [place] [address] Apr, [facility] [address] [id number] [address] [place] [address], [place] [address] March, [facility] [address] [id number] [address] [place] [address], [place] [address] March, [facility] [address] [id number] [address] [place] [address], [place] [address] March, [facility] [address] [id number] [address] [place] [address], [place] [address] March, [facility] [address] [id number] [address] [place] [address], [place] [address] March, [facility] [address] [id number] [address] [place] [address], [place] [address] March, [facility] [address] [id number] [address] [place] [address], [place] [address] March, [facility] [address] [id number] [address] [place] [address], [place] [address] March, [facility] [address] [id number] [address] [place] [address], [place] [address] March, [facility] [address] [id number] [address] [place] [address], [place] [address] March, [facility] [address] [id number] [address] [place] [address], [place] [address] Feb, [facility] [address] [id number] [address] [place] [address], [place] [address] Feb, [facility] [address] [id number] [address] [place] [address], [place] [address] Feb, [facility] [address] [id number] [address] [place] [address], [place] [address] Feb, [facility] [address] [id number] [address] [place] [address], [place] [address] Feb, [facility] [address] [id number] [address] [place] [address], [place] [address] Feb, [facility] [address] [id number] [address] [place] [address], [place] [address] Feb, [facility] [address] [id number] [address] [place] [address], [place] [address] Feb, [facility] [address] [id number] [address] [place] [address], [place] [address] Feb, [facility] [address] [id number] [address] [place] [address], [place] [address] Jan, [facility] [address] [id number] [address] [place] [address], [place] [address] Jan, [facility] [address] [id number] [address] [place] [address], [place] [address] Jan, [facility] [address] [id number] [address] [place] [address], [place] [phone] Jan, [facility] [address] [id number] [address] [place] [address], [place] [phone] Dec, [facility] [address] [id number] [address] [place] [address], [place] [phone] Dec, [facility] [address] [id number] [address] [place] [address], [place] [phone] Nov, [facility] [address] [id number] [address] [place] [address], [place] [phone] Nov, [facility] [address] [id number] [address] [place] [address], [place] [phone] Nov, [facility] [address] [id number] [address] [place] [address], [place] [id number] 16 Nov, 2011 [facility] [address] [id number] [address] [place] [address], [place] [address] Nov, [facility] [address] [id number] [address] [place] [phone] Oct, [facility] [address] [id number] [address] [place] [phone] Oct, [facility] [address] [id number] [address] [place] [phone] Oct, [facility] [address] [id number] [address] [place] [phone] Oct, [facility] [address] [id number] [address] [place] [phone] Oct, [facility] [address] [facility] [id number] [address] [place] [phone] Oct, [facility] [address] [id number] [address] [place] [id number] Oct, [facility] [address] [facility] [id number] [address] [place] [id number] Oct, [facility] [address] [facility] [id number] [address] [place] [phone] Sep, IMMUNIZATIONS No Known Immunizations SOCIAL HISTORY [...] discharged 11/27/2017 11/26/2017 Hospitalization History [facility]- Went Unrepsonsive, Hit head 2017 Hospitalization History [facility]- Back Pain 8
[2020-06-18] MEDS: LACTATED RINGERS 1,000 ML IV SCH (15:55)
--- NOTE | 2020-06-18 16:00 | NUR ---
JULES REYES admitted to room 416-1, with an admitting diagnosis of ABD PAIN INTRACTIBLE PAIN , on 06/18/20 from ER via [facility], accompanied by SENIOR FRONT END DEVELOPER.JULES REYES introduced to surroundings, call light, bed controls, phone, TV, temperature control, lights, meal times, smoking policy, visitor policy, side rail policy, bathrooms and showers. Patient Rights given to patient in the handbook. JULES REYES verbalizes understanding that [facility] is not responsible for the loss or damage to any personal effects or valuables that are kept in the patients posession during their hospitalization. The following Patient Care Plans were discussed with the PT: Discharge Planning, PAIN, [place] VOL. DEF., POTENIAL FOR FALL HIGH RISK INJURY, HIGH RISK ACT INTOL, KNOWLEDGE DEFICIT. JULES REYES verbalizes understanding of Interdisciplinary Patient Education. Patient and/or family were informed about the Rapid Response Team and its purpose. NOTE THAT PT CAME TO FLOOR WITH [facility] REDUCED WITH PRESSUSE DSG AND ABD BINDER ON, AND THAT ER STAFF CAHNGED OUT PT'S Viviana SCHULZ TO [place]
--- OUTSIDE RECORDS SUMMARY | 2020-06-18 16:02 | XMS REPORT ---
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 Name Role Phone MASSIEL Hernandez Unavailable PROBLEMS Type Condition ICD9-CM Code [id number] Code Onset Dates Condition S tatus SNOMED Code Problem Coronary artery disease I25.10 Active 53739783 Problem Hypertension I10 Active 5603663 3 Problem Other chronic pain G89.29 Active 8 0425643 Problem Hyperlipidemia E78.5 Active 41129 004 Problem Type 2 diabetes mellitus wit hout complication, without long-term current use of insulin E11.9 Active 054368183 Problem Low back pain M54.5 Active 249781 009 Problem Pharyngeal dysphagia R13.13 Active 57438457994101 Problem Anxiety F41.9 Active 96820102 Problem Peripheral vascular disease I73.9 Ac tive 026821844 Problem Suprapubic catheter Z93.59 Active 260724647 Problem Reactive depression F32.9 Active 34479772 Problem Neurogenic bladder N31.9 Active 3 09589858 Problem Ventral hernia without obstruction or gangrene K43 .9 Active 581347969 Problem Insomnia G47.00 Active 138507992 Problem Paroxysmal atrial fibrillation I48.0 Active 684188499 Problem Postmenopausal atrophic vaginitis N95.2 Active 68201521 Problem Encounter for suprapubic catheter care Z43.5 Active 251245165 ALLERGIES No Information ENCOUNTERS Encounter Location Date Diagnosis [facility] [address] [facility] [id number] [address] [place] [phone] Jun, [facility] [address] [facility] [id number] [address] [place] [address] Jun, [facility] [address] [facility] [id number] [address] [place] [address] Jun, [facility] [address] [facility] [id number] [address] [place] [address] Jun, Strain of right shoulder, scherer bsequent encounter S46.911D [place] [address] [id number] [address] [place] [address] Jun, Strain of right shoulder, scherer bsequent encounter S46.911D [place] [address] [id number] [address] [place] [address] Jun, Anxiety F41.9 Via [facility] [address] [place] [id number] Jun, Neurogenic bladder N31.9 and Anxiety F41 .9 Via [facility] [address] [place] [id number] May, Anxiety F41.9 [place] [address] [id number] [address] [place] [address] May, Dysuria R30.0 [place] [address] [id number] [address] [place] [address] May, Strain of right shoulder, scherer bsequent encounter S46.911D and Anxiety F41.9 [place] [address] [id number] [address] [place] [address] Apr, Via [facility] [address] [place] [id number] Apr, Strain of right shoulder, subsequent enc ounter S46.911D [place] [address] [id number] [address] [place] [address] 14 Apr, 2019 Strain of right shoulder, scherer bsequent encounter S46.911D and Anxiety F41.9 Via [facility] [address] [place] [id number] 13 Apr, 2019 Type 2 diabetes mellitus without complic ation, without long-term current use of insulin E11.9 and Neurogenic bladder N31.9 [facility] [address] [place] [id number] 11 Apr, 2019 Strain of right shoulder, subsequent enc ounter S46.911D ; History of GI bleed Z87.19 ; Neurogenic bladder N31.9 and Reactive depression F32.9 [facility] [address] [id number] [address] [place] [address] 10 Apr, 2019 Acute pain of left shoulder M25.512 [facility] [address] [id number] [address] [place] [address] 07 Apr, 2019 [facility] [address] [id number] [address] [place] [address] Apr, Anxiety F41.9 and 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 Via [facility] [address] [place] [id number] March, Gastrointestinal hemorrhage associated w ith acute gastritis K29.01 [facility] [address] [id number] [address] [place] [address] March, Via [employer] [address] [place] [id number] March, Bronchitis J40 [facility] [address] [id number] [address] [place] [address] March, Cough R05 [facility] [address] [id number] [address] [place] [address] March, Other chronic pain G89.29 [facility] [address] [id number] [address] [place] [address] March, Anxiety F41.9 [facility] [address] [id number] [address] [place] [address] March, [facility] [address] [id number] [address] [place] [phone] Feb, Other chronic pain G89.29 [facility] [address] [id number] [address] [place] [address] Feb, Anxiety F41.9 [facility] [address] [id number] [address] [place] [address] Feb, Other chronic pain G89.29 Via [employer] [address] [place] [id number] Feb, Neurogenic bladder N31.9 and Suprapubic catheter Z93.59 [facility] [address] [id number] [address] [place] [address] Jan, Anxiety F41.9 [facility] [address] [id number] [address] [place] [address] Dec, Anxiety F41.9 [facility] [address] [id number] [address] [place] [address] Dec, Other chronic pain G89.29 an d Anxiety F41.9 [facility] [address] [id number] [address] [place] [address] Dec, Via [facility] [place] [employer] [address] [place] [id number] Dec, Neurogenic bladder N31.9 and Suprapubic catheter Z93.59 [facility] [address] [id number] [address] [place] [address] Nov, Other chronic pain G89.29 an d Anxiety F41.9 [facility] [address] [id number] [address] [place] [address] Nov, Via [facility] [place] [employer] [address] [place] [id number] Nov, Suprapubic catheter Z93.59 [facility] [address] [id number] [address] [place] [address] Oct, Other chronic pain G89.29 an d Anxiety F41.9 [facility] [address] [id number] [address] [place] [phone] Oct, [facility] [address] [id number] [address] [place] [address] Oct, Suprapubic catheter Z93.59 [facility] [address] [id number] [address] [place] [address] Oct, Via [employer] [address] [place] [id number] Oct, [facility] [address] [id number] [address] [place] [phone] Oct, Anxiety F41.9 [facility] [address] [id number] [address] [place] [address] Oct, Anxiety F41.9 Via [employer] [address] [place] [id number] Oct, Other chronic pain G89.29 [facility] [address] [id number] [address] [place] [address] Sep, Other chronic pain G89.29 Via [employer] [address] [place] [id number] Sep, Suprapubic catheter Z93.59 and Cervicalg ia M54.2 [facility] [address] [id number] [address] [place] [address] Sep, [facility] [address] [id number] [address] [place] [address] Sep, [facility] [address] [id number] [address] [place] [address] Sep, Via [facility] [employer] [address] [place] [id number] Aug, Cystitis N30.90 [facility] [address] [id number] [address] [place] [address] Aug, [facility] [address] [id number] [address] [place] [address] Aug, Other chronic pain G89.29 [facility] [address] [id number] [address] [place] [address] Aug, Via [employer] [address] [place] [id number] Aug, Encounter for suprapubic catheter care Z 43.5 [facility] [address] [id number] [address] [place] [address] Jul, Via [employer] [address] [place] [id number] Jul, [facility] [address] [id number] [address] [place] [address] Jul, Other chronic pain G89.29 [facility] [address] [id number] [address] [place] [address] Jul, [facility] [address] [id number] [address] [place] [address] Jul, Via [employer] [address] [place] [id number] Jun, Postmenopausal atrophic vaginitis N95.2 [place] [address] [id number] [address] [place] [address] Jun, Other chronic pain G89.29 [facility] [address] [id number] [address] [place] [address] Jun, Via [employer] [address] [place] [id number] May, Anxiety F41.9 ; Type 2 diabetes mellitus without complication, without long-term current use of insulin E11.9 ; Hypertension I10 ; Low back pain M54.5 ; Paroxysmal atrial fibrillation I48.0 and 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 [facility] [address] [id number] [address] [place] [address] May, Other chronic pain G89.29 Via [employer] [address] [place] [id number] May, Low back pain M54.5 [facility] [address] [id number] [address] [place] [address] May, [facility] [address] [id number] [address] [place] [address] Apr, Other chronic pain G89.29 [facility] [address] [id number] [address] [place] [address] Apr, [facility] [address] [id number] [address] [place] [address] Apr, Via [employer] [address] [place] [id number] Apr, Closed compression fracture of L3 lumbar vertebra with routine healing, subsequent encounter S32.030D Via [facility] [place] [employer] [address] [place] [id number] 14 Apr, 2018 Low back pain M54.5 Via [employer] [address] [place] [id number] 12 Apr, 2018 Coccydynia M53.3 [facility] [address] [id number] [address] [place] [address] March, [facility] [address] [id number] [address] [place] [address] March, Other chronic pain G89.29 [facility] [address] [id number] [address] [place] [phone] March, [facility] [address] [id number] [address] [place] [phone] March, [facility] [address] [id number] [address] [place] [phone] Feb, [facility] [address] [id number] [address] [place] [address] Feb, Other chronic pain G89.29 Via [facility] [place] [employer] [address] [place] [id number] Feb, Other chronic pain G89.29 and Anxiety F4 1.9 [facility] [address] [id number] [address] [place] [phone] Feb, [facility] [address] [id number] [address] [place] [address] Jan, [facility] [address] [id number] [address] [place] [address] Jan, [facility] [address] [facility] [id number] [address] [place] [phone] Jan, [facility] [address] [facility] [id number] [address] [place] [phone] Jan, [facility] [address] [facility] [id number] [address] [place] [address] Dec, Via [facility] [address] [place] [id number] Dec, Peripheral vascular disease I73.9 ; 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 ; Other chronic pain G89.29 ; Anxiety F41.9 ; Reactive depression F32.9 ; Insomnia G47.00 and Type 2 diabetes mellitus without complication, without long-term current use of insulin E11.9 [place] [address] [id number] [address] Nov, [facility] [address] [id number] [place] [id number] Nov, Anxiety F41.9 [facility] [address] [facility] [id number] [address] [place] [phone] Nov, [facility] [address] [id number] [place] [id number] Nov, Anxiety F41.9 Via [facility] [address] [place] [id number] Nov, Status post surgery Z98.890 ; Confused R 41.0 ; Anxiety F41.9 and Other chronic pain G89.29 [facility] [address] [id number] [place] [id number] Nov, Other chronic pain G89.29 [facility] [address] [facility] [id number] [address] [place] [phone] Oct, [facility] [address] [id number] [facility] [place] [id number] Oct, Other chronic pain G89.29 [place] [address] [id number] [address] [place] [phone] Oct, Anxiety F41.9 [facility] [address] [id number] [place] [id number] Sep, Other chronic pain G89.29 [facility] [address] [id number] [place] [id number] Sep, Via [facility] [address] [place] [id number] Aug, Dysuria R30.0 and Anxiety F41.9 [facility] [address] [id number] [address] [place] [phone] Aug, [facility] [address] [id number] [place] [id number] Aug, Other chronic pain G89.29 [facility] [address] [facility] [id number] [address] [place] [phone] Jul, Other chronic pain G89.29 [facility] [address] [id number] [place] [id number] Jun, [facility] [address] [id number] [place] [id number] Jun, Other chronic pain G89.29 [facility] [address] [facility] [id number] [address] [place] [address] Jun, [facility] [address] [facility] [id number] [address] [place] [address] May, Other chronic pain G89.29 [facility] [address] [id number] [address] [place] [address] Apr, Other chronic pain G89.29 Via [facility] [address] [place] [id number] Apr, Reactive depression F32.9 and Pharyngeal dysphagia R13.13 [facility] [address] [facility] [id number] [address] [place] [address] Apr, Urinary tract infection with out hematuria, site unspecified N39.0 [facility] [address] [id number] [address] [place] [address] March, Other chronic pain G89.29 [facility] [address] [id number] [address] [place] [address] Feb, Other chronic pain G89.29 [facility] [address] [id number] [address] [place] [address] Feb, [facility] [address] [id number] [place] [facility] [id number] Feb, Via [facility] [employer] [address] [place] [id number] Feb, Dysuria R30.0 and Ventral hernia without obstruction or gangrene K43.9 [place] [address] [facility] [id number] [address] [place] [phone] Jan, Other chronic pain G89.29 [facility] [address] [id number] [place] [facility] [id number] Dec, Other chronic pain G89.29 [facility] [address] [id number] [address] [place] [address] Nov, Other chronic pain G89.29 [facility] [address] [place] [id number] Nov, Lymphadenitis I88.9 [facility] [address] [id number] [address] [place] [address] Nov, Other chronic pain G89.29 [facility] [address] [id number] [address] [place] [address] Nov, [facility] [address] [id number] [place] [id number] Nov, Other chronic pain G89.29 Via [facility] [employer] [address] [place] [id number] Oct, Low back pain M54.5 ; Hypertension I10 a nd Type 2 diabetes mellitus without complication, without long-term current use of insulin E11.9 [facility] [address] [id number] [address] [place] [address] Oct, [facility] [address] [id number] [address] [place] [address] Oct, [facility] [address] [id number] [address] [place] [address] Oct, [facility] [address] [id number] [address] [place] [phone] Oct, [facility] [address] [id number] [address] [place] [address] Sep, [facility] [address] [id number] [address] [place] [address] Sep, [facility] [address] [id number] [address] [place] [address] Aug, Other chronic pain G89.29 [facility] [address] [id number] [address] [place] [address] Jul, [facility] [address] [id number] [address] [place] [address] Jul, [facility] [address] [id number] [address] [place] [address] Jul, [facility] [address] [id number] [address] [place] [address] Jun, [facility] [address] [id number] [address] [place] [address] Jun, Via [facility] [address] [place] [id number] Jun, Low back pain M54.5 ; Other chronic pain G89.29 and Coronary artery disease I25.10 [facility] [address] [id number] [address] [place] [address] Jun, [facility] [address] [id number] [address] [place] [address] May, [facility] [address] [id number] [address] [place] [address] May, [facility] [address] [id number] [address] [place] [address] May, Other chronic pain G89.29 [facility] [address] [id number] [address] [place] [phone] May, [facility] [address] [id number] [address] [place] [address] Apr, [facility] [address] [id number] [address] [place] [address] Apr, Acute cystitis without hemat uria N30.00 [facility] [address] [id number] [address] [place] [phone] 16 Apr, 2016 Acute cystitis without hemat uria N30.00 ; Coronary artery disease I25.10 ; Low back pain M54.5 and Other chronic pain G89.29 [facility] [address] [id number] [address] [place] [address] Apr, Other chronic pain G89.29 [facility] [address] [id number] [address] [place] [address] March, Other chronic pain G89.29 [facility] [address] [id number] [address] [place] [phone] 18 Feb, 2016 [facility] [address] [id number] [address] [place] [address] Feb, Arthritis M19.90 [facility] [address] [id number] [address] [place] [address] Feb, [facility] [address] [id number] [address] [place] [phone] Jan, [facility] [address] [id number] [address] [place] [address] Jan, [facility] [address] [id number] [address] [place] [address] Jan, Other chronic pain G89.29 [facility] [address] [id number] [address] [place] [phone] Jan, Hypertension I10 ; Coronary artery disease I25.10 and Insomnia G47.00 [facility] [address] [id number] [address] [place] [address] Jan, [facility] [address] [id number] [address] [place] [address] Dec, Right hip pain M25.551 [facility] [address] [facility] [id number] [address] [place] [address] Dec, [facility] [address] [id number] [address] [place] [address] Dec, [facility] [address] [id number] [address] [place] [address] Dec, [facility] [address] [id number] [address] [place] [address] Dec, Other chronic pain G89.29 [facility] [address] [id number] [address] [place] [address] Dec, [facility] [address] [facility] [id number] [address] [place] [address] Nov, [facility] [address] [facility] [id number] [address] [place] [address] Nov, Other chronic pain G89.29 [facility] [address] [facility] [id number] [address] [place] [phone] Nov, Right hip pain M25.551 and C oronary artery disease I25.10 [facility] [address] [id number] [address] [place] [phone] Nov, Other chronic pain G89.29 [facility] [address] [id number] [address] [place] [phone] Oct, [facility] [address] [id number] [address] [place] [phone] Oct, [facility] [address] [facility] [id number] [address] [place] [phone] Sep, [facility] [address] [id number] [address] [place] [phone] Sep, [facility] [address] [id number] [address] [place] [phone] Aug, [facility] [address] [facility] [id number] [address] [place] [phone] Aug, Hypertension I10 ; Coronary artery disease I25.10 and Arthritis M19.90 [facility] [address] [id number] [address] [place] [phone] Jun, [facility] [address] [facility] [id number] [address] [place] [phone] Jun, Essential hypertension, jayson gn 401.1 ; Other chronic pain 338.29 and Chronic airway obstruction, not elsewhere classified 496 [facility] [address] [facility] [id number] [address] [place] [phone] Jun, [facility] [address] [facility] [id number] [address] [place] [address] Jun, [facility] [address] [id number] [address] [place] [address] Jun, [facility] [address] [facility] [id number] [address] [place] [address] May, [facility] [address] [facility] [id number] [address] [place] [address] May, [facility] [address] [facility] [id number] [address] [place] [address] Apr, [facility] [address] [id number] [address] [place] [address], [place] [address] Apr, [facility] [address] [id number] [address] [place] [address], [place] [address] Apr, [facility] [address] [id number] [address] [place] [address], [place] [address] March, [facility] [address] [id number] [address] [place] [address], [place] [address] March, [facility] [address] [id number] [address] [place] [address], [place] [address] March, [facility] [address] [id number] [address] [place] [address], [place] [address] March, [facility] [address] [id number] [address] [place] [address], [place] [address] March, Sialadenitis 527.2 [facility] [address] [id number] [address] [place] [address], [place] [address] Feb, [facility] [address] [id number] [address] [place] [address], [place] [address] Feb, [facility] [address] [id number] [address] [place] [address], [place] [address] Feb, [facility] [address] [id number] [address] [place] [address], [place] [address] Feb, [facility] [address] [id number] [address] [place] [address], [place] [address] Feb, [facility] [address] [id number] [address] [place] [address], [place] [address] Jan, [facility] [address] [id number] [address] [place] [address], [place] [address] Jan, [facility] [address] [id number] [address] [place] [address], [place] [address] Jan, [facility] [address] [id number] [address] [place] [address], [place] [address] Jan, [facility] [address] [id number] [address] [place] [address], [place] [address] Jan, [facility] [address] [id number] [address] [place] [address], [place] [address] Jan, [facility] [address] [id number] [address] [place] [address], [place] [address] Dec, 2014 [facility] [address] [id number] [address] [place] [address], [place] [address] Dec, 2014 [facility] [address] [id number] [address] [place] [address], [place] [address] Dec, 2014 [facility] [address] [id number] [address] [place] [address], [place] [address] Dec, [facility] [address] [id number] [address] [place] [address], [place] [address] Dec, [facility] [address] [id number] [address] [place] [address], [place] [address] Dec, [facility] [address] [id number] [address] [place] [address], [place] [address] Nov, [facility] [address] [id number] [address] [place] [address], [place] [address] Nov, [facility] [address] [id number] [address] [place] [address], [place] [address] Nov, [facility] [address] [id number] [address] [place] [address], [place] [address] Nov, [facility] [address] [id number] [address] [place] [address], [place] [address] Nov, [facility] [address] [id number] [address] [place] [address], [place] [address] Nov, [facility] [address] [id number] [address] [place] [address], [place] [address] Nov, [facility] [address] [id number] [address] [place] [address], [place] [address] Nov, [facility] [address] [id number] [address] [place] [address], [place] [address] Nov, [facility] [address] [id number] [address] [place] [address], [place] [address] Nov, [facility] [address] [id number] [address] [place] [address], [place] [address] Nov, [facility] [address] [id number] [address] [place] [address], [place] [address] Nov, [facility] [address] [id number] [address] [place] [address], [place] [address] Nov, [facility] [address] [id number] [address] [place] [address], [place] [address] Nov, [facility] [address] [id number] [address] [place] [address], [place] [address] Oct, [facility] [address] [id number] [address] [place] [address], [place] [address] Oct, [facility] [address] [id number] [address] [place] [address], [place] [address] Oct, [facility] [address] [id number] [address] [place] [address], [place] [address] 18 Oct, 2014 [facility] [address] [id number] [address] [place] [address], [place] [address] 18 Oct, 2014 [facility] [address] [id number] [address] [place] [address], [place] [address] 17 Oct, 2014 [facility] [address] [id number] [address] [place] [address], [place] [address] 17 Oct, 2014 [facility] [address] [id number] [address] [place] [address], [place] [address] 10 Oct, 2014 [facility] [address] [id number] [address] [place] [address], [place] [address] Oct, [facility] [address] [id number] [address] [place] [address], [place] [address] Sep, [facility] [address] [id number] [address] [place] [address], [place] [address] Sep, [facility] [address] [id number] [address] [place] [address], [place] [address] Sep, [facility] [address] [id number] [address] [place] [address], [place] [address] Sep, [facility] [address] [id number] [address] [place] [address], [place] [address] Sep, [facility] [address] [id number] [address] [place] [address], [place] [address] Sep, [facility] [address] [id number] [address] [place] [address], [place] [address] Sep, [facility] [address] [id number] [address] [place] [address], [place] [address] Sep, [facility] [address] [id number] [address] [place] [address], [place] [address] Sep, [facility] [address] [id number] [address] [place] [address], [place] [address] Sep, [facility] [address] [id number] [address] [place] [address], [place] [address] Sep, [facility] [address] [id number] [address] [place] [address], [place] [address] Sep, [facility] [address] [id number] [address] [place] [address], [place] [address] Aug, [facility] [address] [id number] [address] [place] [address], [place] [address] Aug, [facility] [address] [id number] [address] [place] [address], [place] [address] Aug, [facility] [address] [id number] [address] [place] [address], [place] [address] 29 Aug, 2013 [facility] [address] [id number] [address] [place] [address], [place] [address] 28 Aug, 2014 [facility] [address] [id number] [address] [place] [address], [place] [address] 28 Aug, 2014 [facility] [address] [id number] [address] [place] [address], [place] [address] 17 Aug, 2013 [facility] [address] [id number] [address] [place] [address], [place] [address] 17 Aug, 2013 [facility] [address] [id number] [address] [place] [address], [place] [address] 30 Jul, 2013 [facility] [address] [id number] [address] [place] [address], [place] [address] 30 Jul, 2013 [facility] [address] [id number] [address] [place] [address], [place] [address] 30 Sep, 2013 [facility] [address] [id number] [address] [place] [address], [place] [address] 30 Sep, 2013 [facility] [address] [id number] [address] [place] [address], [place] [address] 25 Jul, 2013 [facility] [address] [id number] [address] [place] [address] 25 Sep, 2013 [facility] [address] [id number] [address] [place] [address] 15 Sep, 2013 [facility] [address] [id number] [address] [place] [address], [place] [address] 15 Sep, 2013 [facility] [address] [id number] [address] [place] [address], [place] [address] 11 Jul, 2013 [facility] [address] [id number] [address] [place] [address], [place] [address] 11 Jul, 2013 [facility] [address] [id number] [address] [place] [address], [place] [address] Jun, [facility] [address] [id number] [address] [place] [address], [place] [address] Jun, [facility] [address] [id number] [address] [place] [address], [place] [address] Jun, [facility] [address] [id number] [address] [place] [address], [place] [address] Jun, [facility] [address] [id number] [address] [place] [address], [place] [address] Jun, [facility] [address] [id number] [address] [place] [address], [place] [address] Jun, [facility] [address] [id number] [address] [place] [address], [place] [address] Jun, [facility] [address] [id number] [address] [place] [address], [place] [address] Jun, [facility] [address] [id number] [address] [place] [address], [place] [address] Jun, [facility] [address] [id number] [address] [place] [address], [place] [address] Jun, [facility] [address] [id number] [address] [place] [address], [place] [address] Jun, [facility] [address] [id number] [address] [place] [address], [place] [address] Jun, [facility] [address] [id number] [address] [place] [address], [place] [address] Jun, [facility] [address] [id number] [address] [place] [address], [place] [address] Jun, [facility] [address] [id number] [address] [place] [address], [place] [address] Jun, [facility] [address] [id number] [address] [place] [address], [place] [address] Jun, [facility] [address] [id number] [facility] [address] Jun, [facility] [address] [id number] [facility] [place] [address] Jun, [facility] [address] [id number] [facility] [address] Jun, [facility] [address] [id number] [address] [place] [address], [place] [address] Jun, [facility] [address] [id number] [address] [place] [address], [place] [address] Jun, [facility] [address] [id number] [address] [place] [address], [place] [address] Jun, [facility] [address] [id number] [address] [place] [address], [place] [address] May, [facility] [address] [id number] [address] [place] [address], [place] [address] May, [facility] [address] [id number] [address] [place] [address], [place] [address] May, [facility] [address] [id number] [address] [place] [address], [place] [address] May, [facility] [address] [id number] [address] [place] [address], [place] [address] May, [facility] [address] [id number] [address] [place] [address], [place] [address] May, [facility] [address] [id number] [address] [place] [address], [place] [address] May, [facility] [address] [id number] [address] [place] [address], [place] [address] May, [facility] [address] [id number] [address] [place] [address], [place] [address] May, [facility] [address] [id number] [address] [place] [address], [place] [address] May, [facility] [address] [id number] [facility] [address] May, [facility] [address] [id number] [facility] [address] May, [facility] [address] [id number] [facility] [address] May, [facility] [address] [id number] [address] [place] [address], [place] [address] Apr, [facility] [address] [id number] [address] [place] [address], [place] [address] Apr, [facility] [address] [id number] [address] [place] [address], [place] [address] Apr, [facility] [address] [id number] [address] [place] [address], [place] [address] Apr, [facility] [address] [id number] [address] [place] [address], [place] [address] Apr, [facility] [address] [id number] [address] [place] [address], [place] [address] Apr, [facility] [address] [id number] [address] [place] [address], [place] [address] Apr, [facility] [address] [id number] [address] [place] [address], [place] [address] Apr, [facility] [address] [id number] [address] [place] [address], [place] [address] Apr, [facility] [address] [id number] [address] [place] [address], [place] [address] March, [facility] [address] [id number] [address] [place] [address], [place] [address] March, [facility] [address] [id number] [address] [place] [address], [place] [address] March, [facility] [address] [id number] [address] [place] [address], [place] [address] March, [facility] [address] [id number] [address] [place] [address], [place] [address] March, [facility] [address] [id number] [address] [place] [address], [place] [address] March, [facility] [address] [id number] [address] [place] [address], [place] [address] March, [facility] [address] [id number] [address] [place] [address], [place] [address] March, [facility] [address] [id number] [address] [place] [address], [place] [address] March, [facility] [address] [id number] [address] [place] [address], [place] [address] March, [facility] [address] [id number] [address] [place] [address], [place] [address] March, [facility] [address] [id number] [address] [place] [address], [place] [address] March, [facility] [address] [id number] [address] [place] [address], [place] [address] March, [facility] [address] [id number] [address] [place] [address], [place] [address] March, [facility] [address] [id number] [address] [place] [address], [place] [address] March, [facility] [address] [id number] [address] [place] [address], [place] [address] March, [facility] [address] [id number] [address] [place] [address], [place] [address] March, [facility] [address] [id number] [address] [place] [address], [place] [address] March, [facility] [address] [id number] [address] [place] [address], [place] [address] March, [facility] [address] [id number] [facility] [address] March, [facility] [address] [id number] [facility] [address] Feb, [facility] [address] [id number] [facility] [address] Feb, [facility] [address] [id number] [address] [place] [address], [place] [address] Feb, [facility] [address] [id number] [address] [place] [address], [place] [address] Feb, [facility] [address] [id number] [address] [place] [address], [place] [address] Feb, [facility] [address] [id number] [address] [place] [address], [place] [address] Feb, [facility] [address] [id number] [address] [place] [address], [place] [address] Feb, [facility] [address] [id number] [address] [place] [address], [place] [address] Feb, [facility] [address] [id number] [address] [place] [address], [place] [address] Jan, [facility] [address] [id number] [address] [place] [address], [place] [address] Jan, [facility] [address] [id number] [address] [place] [address], [place] [address] 24 Jan, 2014 [facility] [address] [id number] [address] [place] [address], [place] [address] 24 Jan, 2014 [facility] [address] [id number] [address] [place] [address], [place] [address] Jan, [facility] [address] [id number] [address] [place] [address], [place] [address] 13 Jan, 2014 [facility] [address] [id number] [address] [place] [address], [place] [address] Jan, [facility] [address] [id number] [address] [place] [address], [place] [address] Jan, [facility] [address] [id number] [address] [place] [address], [place] [address] Jan, [facility] [address] [id number] [address] [place] [address], [place] [address] Jan, [facility] [address] [id number] [address] [place] [address], [place] [address] Dec, [facility] [address] [id number] [address] [place] [address], [place] [address] Dec, [facility] [address] [id number] [address] [place] [address], [place] [address] Dec, [facility] [address] [id number] [address] [place] [address], [place] [address] Dec, [facility] [address] [id number] [address] [place] [address], [place] [address] Dec, [facility] [address] [id number] [address] [place] [address], [place] [address] Dec, [facility] [address] [id number] [address] [place] [address], [place] [address] Dec, [facility] [address] [id number] [address] [place] [address], [place] [address] Dec, [facility] [address] [id number] [address] [place] [address], [place] [address] Nov, [facility] [address] [id number] [address] [place] [address], [place] [address] Nov, [facility] [address] [id number] [address] [place] [address], [place] [address] Nov, [facility] [address] [id number] [address] [place] [address], [place] [address] Nov, [facility] [address] [id number] [address] [place] [address], [place] [address] Nov, [facility] [address] [id number] [address] [place] [address], [place] [address] Nov, [facility] [address] [id number] [address] [place] [address], [place] [address] Nov, [facility] [address] [id number] [address] [place] [address], [place] [address] Nov, [facility] [address] [id number] [address] [place] [address], [place] [address] Nov, [facility] [address] [id number] [address] [place] [address], [place] [address] Nov, [facility] [address] [id number] [address] [place] [address], [place] [address] Nov, [facility] [address] [id number] [address] [place] [address], [place] [address] Nov, [facility] [address] [id number] [address] [place] [address], [place] [address] Nov, [facility] [address] [id number] [address] [place] [address], [place] [address] Oct, [facility] [address] [id number] [address] [place] [address], [place] [address] Oct, [facility] [address] [id number] [address] [place] [address], [place] [address] Oct, [facility] [address] [id number] [address] [place] [address], [place] [address] Oct, [facility] [address] [id number] [address] [place] [address], [place] [address] Oct, [facility] [address] [id number] [address] [place] [address], [place] [address] Oct, [facility] [address] [id number] [address] [place] [address], [place] [address] 18 Oct, 2013 [facility] [address] [id number] [address] [place] [address], [place] [address] 18 Oct, 2013 [facility] [address] [id number] [address] [place] [address], [place] [address] 17 Oct, 2013 [facility] [address] [id number] [address] [place] [address], [place] [address] 17 Oct, 2013 [facility] [address] [id number] [address] [place] [address], [place] [address] 03 Oct, 2013 [facility] [address] [id number] [address] [place] [address], [place] [address] Oct, [facility] [address] [id number] [address] [place] [address], [place] [address] 02 Oct, 2013 [facility] [address] [id number] [address] [place] [address], [place] [address] Oct, [facility] [address] [id number] [address] [place] [address], [place] [address] 14 Sep, 2013 [facility] [address] [id number] [address] [place] [address], [place] [address] 14 Sep, 2013 [facility] [address] [id number] [address] [place] [address], [place] [address] 05 Sep, 2013 [facility] [address] [id number] [address] [place] [id number] 05 Sep, 2013 [facility] [address] [id number] [address] [place] [id number] 04 Sep, 2013 [facility] [address] [id number] [address] [place] [address], [place] [address] Sep, [facility] [address] [id number] [address] [place] [address] Sep, [facility] [address] [id number] [address] [place] [address] Sep, [facility] [address] [id number] [address] [place] [address], [place] [address] Sep, [facility] [facility] [address] [id number] [address] [place] [address], [place] [address] Sep, [facility] [address] [id number] [address] [place] [address], [place] [address] Aug, [facility] [address] [id number] [address] [place] [address], [place] [address] Aug, [facility] [address] [id number] [address] [place] [address], [place] [address] Aug, [facility] [address] [id number] [address] [place] [address], [place] [address] Aug, [facility] [address] [id number] [address] [place] [address], [place] [address] Aug, [facility] [address] [id number] [address] [place] [address], [place] [address] Aug, [facility] [address] [id number] [address] [place] [address], [place] [address] Aug, [facility] [address] [id number] [address] [place] [address], [place] [address] Aug, [facility] [address] [id number] [address] [place] [address], [place] [address] Aug, [facility] [address] [id number] [address] [place] [address], [place] [address] Aug, [facility] [address] [id number] [address] [place] [address], [place] [address] Aug, [facility] [address] [id number] [address] [place] [address], [place] [address] Aug, [facility] [address] [id number] [address] [place] [address], [place] [address] Aug, [facility] [address] [id number] [address] [place] [address], [place] [address] Aug, [facility] [address] [id number] [address] [place] [address], [place] [address] 17 Aug, 2013 [facility] [address] [id number] [address] [place] [address], [place] [address] 14 Aug, 2013 [facility] [address] [id number] [address] [place] [address], [place] [address] 14 Aug, 2013 [facility] [address] [id number] [address] [place] [address], [place] [address] 01 Aug, 2013 [facility] [address] [id number] [address] [place] [address], [place] [address] 20 Jul, 2013 [facility] [address] [id number] [address] [place] [address], [place] [address] 19 Jul, 2013 [facility] [address] [id number] [address] [place] [address], [place] [address] 18 Jul, 2013 [facility] [address] [id number] [address] [place] [address], [place] [address] 11 Jul, 2013 [facility] [address] [id number] [address] [place] [address], [place] [address] 11 Jul, 2013 [facility] [address] [id number] [address] [place] [address], [place] [address] 28 Jun, 2013 [facility] [address] [id number] [address] [place] [address], [place] [address] Jun, [facility] [address] [id number] [address] [place] [address], [place] [address] Jun, [facility] [address] [id number] [address] [place] [address], [place] [address] 15 Jun, 2013 [facility] [address] [id number] [address] [place] [address], [place] [address] 14 Jun, 2013 [facility] [address] [id number] [address] [place] [address], [place] [address] Jun, [facility] [address] [id number] [address] [place] [address], [place] [address] Jun, [facility] [address] [id number] [address] [place] [address], [place] [address] Jun, [facility] [address] [id number] [address] [place] [address], [place] [address] Jun, [facility] [address] [id number] [address] [place] [address], [place] [address] Jun, [facility] [address] [id number] [address] [place] [address], [place] [address] May, [facility] [address] [id number] [address] [place] [address], [place] [address] May, [facility] [address] [id number] [address] [place] [address], [place] [address] May, [facility] [address] [id number] [address] [place] [address], [place] [address] May, [facility] [address] [id number] [address] [place] [address], [place] [address] May, [facility] [address] [id number] [address] [place] [address], [place] [address] May, [facility] [address] [id number] [address] [place] [address], [place] [address] May, [facility] [address] [id number] [address] [place] [address], [place] [address] May, [facility] [address] [id number] [address] [place] [address], [place] [address] May, [facility] [address] [id number] [address] [place] [address], [place] [address] Apr, [facility] [address] [id number] [address] [place] [address], [place] [address] Apr, [facility] [address] [id number] [address] [place] [address], [place] [address] Apr, [facility] [address] [id number] [address] [place] [address], [place] [address] 19 Apr, 2013 [facility] [address] [id number] [address] [place] [address], [place] [address] Apr, [facility] [address] [id number] [address] [place] [address], [place] [address] 04 Apr, 2013 [facility] [address] [id number] [address] [place] [address], [place] [address] Apr, [facility] [address] [id number] [address] [place] [address], [place] [address] March, [facility] [address] [id number] [address] [place] [address], [place] [address] Feb, [facility] [address] [id number] [address] [place] [address], [place] [address] Feb, [facility] [address] [id number] [address] [place] [address], [place] [address] Feb, [facility] [address] [id number] [address] [place] [address], [place] [address] Jan, [facility] [address] [id number] [address] [place] [address], [place] [address] Jan, [facility] [address] [id number] [address] [place] [address], [place] [address] Jan, [facility] [address] [id number] [address] [place] [address], [place] [address] 14 Jan, 2013 [facility] [address] [id number] [address] [place] [address], [place] [address] 12 Jan, 2013 [facility] [address] [id number] [address] [place] [address], [place] [address] 08 Jan, 2013 [facility] [address] [id number] [address] [place] [address], [place] [address] 07 Jan, 2013 [facility] [address] [id number] [address] [place] [address], [place] [address] Jan, [facility] [address] [id number] [address] [place] [address], [place] [address] Dec, [facility] [address] [id number] [address] [place] [address], [place] [address] 25 Dec, 2012 [facility] [address] [id number] [address] [place] [address], [place] [address] Dec, [facility] [address] [id number] [address] [place] [address], [place] [address] Dec, [facility] [address] [id number] [address] [place] [address], [place] [address] 07 Dec, 2012 [facility] [address] [id number] [address] [place] [address], [place] [address] 06 Dec, 2012 [facility] [address] [id number] [address] [place] [address], [place] [address] 05 Dec, 2012 [facility] [address] [id number] [address] [place] [address], [place] [address] Nov, [facility] [address] [id number] [address] [place] [address], [place] [address] Nov, [facility] [address] [id number] [address] [place] [address], [place] [address] Nov, [facility] [address] [id number] [address] [place] [address], [place] [address] Nov, [facility] [address] [id number] [address] [place] [address], [place] [address] Nov, [facility] [address] [id number] [address] [place] [address], [place] [address] Nov, [facility] [address] [id number] [address] [place] [address], [place] [address] 02 Nov, 2012 [facility] [address] [id number] [address] [place] [address], [place] [address] Oct, [facility] [address] [id number] [address] [place] [address], [place] [address] Oct, [facility] [address] [id number] [address] [place] [address], [place] [address] Oct, [facility] [address] [id number] [address] [place] [address], [place] [address] Oct, [facility] [address] [id number] [address] [place] [address], [place] [address] Oct, [facility] [address] [id number] [address] [place] [address], [place] [address] Oct, [facility] [address] [id number] [address] [place] [address], [place] [address] Oct, [facility] [address] [id number] [address] [place] [address], [place] [address] Oct, [facility] [address] [id number] [address] [place] [address], [place] [address] Oct, [facility] [address] [id number] [address] [place] [address], [place] [address] Oct, [facility] [address] [id number] [address] [place] [address], [place] [address] Oct, [facility] [address] [id number] [address] [place] [address], [place] [address] Oct, [facility] [address] [id number] [address] [place] [address], [place] [address] Sep, [facility] [address] [id number] [address] [place] [address], [place] [address] Sep, [facility] [address] [id number] [address] [place] [address], [place] [address] Sep, [facility] [address] [id number] [address] [place] [address], [place] [address] Sep, [facility] [address] [id number] [address] [place] [address], [place] [address] Sep, [facility] [address] [id number] [address] [place] [address], [place] [address] Sep, [facility] [address] [id number] [address] [place] [address], [place] [address] Sep, [facility] [address] [id number] [address] [place] [address], [place] [address] Sep, [facility] [address] [id number] [address] [place] [address], [place] [address] Sep, [facility] [address] [id number] [address] [place] [address], [place] [address] Sep, [facility] [address] [id number] [address] [place] [address], [place] [address] Sep, [facility] [address] [id number] [address] [place] [address], [place] [address] Aug, [facility] [address] [id number] [address] [place] [address], [place] [address] Aug, [facility] [address] [id number] [address] [place] [address], [place] [address] Aug, [facility] [address] [id number] [address] [place] [address] Aug, [facility] [address] [id number] [address] [place] [address], [place] [address] Aug, [facility] [address] [id number] [address] [place] [address] Aug, [facility] [address] [id number] [address] [place] [address], [place] [address] Aug, [facility] [address] [id number] [address] [place] [address], [place] [address] Aug, [facility] [address] [id number] [address] [place] [address], [place] [address] Aug, [facility] [address] [id number] [address] [place] [address] [place] [address] Aug, [facility] [address] [id number] [address] [place] [address], [place] [address] 22 Jul, 2012 [facility] [address] [id number] [address] [place] [address], [place] [address] Jul, [facility] [address] [id number] [address] [place] [address], [place] [address] Jul, [facility] [address] [id number] [address] [place] [address], [place] [address] Jul, [facility] [address] [id number] [address] [place] [address], [place] [address] Jun, [facility] [address] [id number] [address] [place] [address], [place] [address] Jun, [facility] [address] [id number] [address] [place] [address], [place] [address] Jun, [facility] [address] [id number] [address] [place] [address], [place] [address] Jun, [facility] [address] [id number] [address] [place] [address], [place] [address] Jun, [facility] [address] [id number] [address] [place] [address], [place] [address] Jun, [facility] [address] [id number] [address] [place] [address], [place] [address] Jun, [facility] [address] [id number] [address] [place] [address], [place] [address] May, [facility] [address] [id number] [address] [place] [address], [place] [address] May, [facility] [address] [id number] [address] [place] [address], [place] [address] May, [facility] [address] [id number] [address] [place] [address], [place] [address] May, [facility] [address] [id number] [address] [place] [address], [place] [address] May, [facility] [address] [id number] [address] [place] [address], [place] [address] Apr, [facility] [address] [id number] [address] [place] [address], [place] [address] Apr, [facility] [address] [id number] [address] [place] [address], [place] [address] Apr, [facility] [address] [id number] [address] [place] [address], [place] [address] Apr, [facility] [address] [id number] [address] [place] [address], [place] [address] Apr, [facility] [address] [id number] [address] [place] [address], [place] [address] March, [facility] [address] [id number] [address] [place] [address], [place] [address] March, [facility] [address] [id number] [address] [place] [address], [place] [address] March, [facility] [address] [id number] [address] [place] [address], [place] [address] March, [facility] [address] [id number] [address] [place] [address], [place] [address] March, [facility] [address] [id number] [address] [place] [address], [place] [address] March, [facility] [address] [id number] [address] [place] [address], [place] [address] March, [facility] [address] [id number] [address] [place] [address], [place] [address] March, [facility] [address] [id number] [address] [place] [address], [place] [address] March, [facility] [address] [id number] [address] [place] [address], [place] [address] March, [facility] [address] [id number] [address] [place] [address], [place] [address] 30 Feb, 2012 [facility] [address] [id number] [address] [place] [address], [place] [address] Feb, [facility] [address] [id number] [address] [place] [address], [place] [address] Feb, [facility] [address] [id number] [address] [place] [address], [place] [address] Feb, [facility] [address] [id number] [address] [place] [address], [place] [address] Feb, [facility] [address] [id number] [address] [place] [address], [place] [address] Feb, [facility] [address] [id number] [address] [place] [address], [place] [address] Feb, [facility] [address] [id number] [address] [place] [address], [place] [address] Feb, [facility] [address] [id number] [address] [place] [address], [place] [address] Feb, [facility] [address] [id number] [address] [place] [address], [place] [address] Jan, [facility] [address] [id number] [address] [place] [address], [place] [address] Jan, [facility] [address] [id number] [address] [place] [address], [place] [address] 05 Jan, 2012 [facility] [address] [id number] [address] [place] [address], [place] [address] Jan, [facility] [address] [id number] [address] [place] [address], [place] [address] Dec, [facility] [address] [id number] [address] [place] [address], [place] [phone] Dec, [facility] [address] [id number] [address] [place] [phone] 31 Nov, 2011 [facility] [address] [id number] [address] [place] [phone] Nov, [facility] [address] [id number] [address] [place] [id number] 18 Nov, 2011 [facility] [address] [id number] [address] [place] [id number] 16 Nov, 2011 [facility] [address] [id number] [address] [place] [phone] Nov, [facility] [address] [id number] [address] [place] [id number] Oct, [facility] [address] [id number] [address] [place] [phone] Oct, [facility] [address] [id number] [address] [place] [id number] Oct, [facility] [address] [id number] [address] [place] [id number] Oct, [facility] [address] [id number] [address] [place] [phone] Oct, [facility] [address] [id number] [address] [place] [phone] Oct, [facility] [address] [id number] [address] [place] [phone] Oct, [facility] [address] [id number] [address] [place] [id number] Oct, [facility] [address] [id number] [address] [place] [phone] Sep, IMMUNIZATIONS No Known Immunizations SOCIAL HISTORY Never Assessed REASON FOR VISIT PLAN OF CARE VITAL SIGNS Height 62 in 2014-10-27 Weight 188.5 lbs 2014-10-27 Temperature 98.2 degrees Fahrenheit 2014-10-27 Heart Rate 80 bpm 2014-10-27 Respiratory Rate 28 2014-10-27 Blood pressure systolic 148 mmHg 2014-10-27 Blood pressure diastolic 72 mmHg 2014-10-27 MEDICATIONS Unknown Medications RESULTS No Results PROCEDURES [...] Hospitalization History ED [place]- Back Pain 05/05/ 8
--- OUTSIDE RECORDS SUMMARY | 2020-06-18 16:02 | XMS REPORT ---
Author Author Sanjuanita Abdul Doctor Organization [facility] Address Unknown Phone Unavailable Care Team Providers Care Air Export Agent Name Role Phone Migration, Doctor Unavailable Unavailable PROBLEMS Type Condition ICD9-CM Code [id number] Code Onset Dates Condition S tatus SNOMED Code Problem Coronary artery disease I25.10 Active 12255646 Problem Hypertension I10 Active 5163465 3 Problem Other chronic pain G89.29 Active 8 8516794 Problem Hyperlipidemia E78.5 Active 64111 004 Problem Type 2 diabetes mellitus wit hout complication, without long-term current use of insulin E11.9 Active 070529372 Problem Low back pain M54.5 Active 958614 009 Problem Pharyngeal dysphagia R13.13 Active 25160659993122 Problem Anxiety F41.9 Active 51620276 Problem Peripheral vascular disease I73.9 Ac tive 000452505 Problem Suprapubic catheter Z93.59 Active 524687222 Problem Reactive depression F32.9 Active 13967431 Problem Neurogenic bladder N31.9 Active 3 80873818 Problem Ventral hernia without obstruction or gangrene K43 .9 Active 938060467 Problem Insomnia G47.00 Active 997998472 Problem Paroxysmal atrial fibrillation I48.0 Active 888047412 Problem Postmenopausal atrophic vaginitis N95.2 Active 19728421 Problem Encounter for suprapubic catheter care Z43.5 Active 326791322 ALLERGIES No Information ENCOUNTERS Encounter Location Date Diagnosis [facility] [address] [facility] [id number] [address] [place] [address] Jun, [facility] [address] [id number] [address] [place] [address] Jun, [facility] [address] [facility] [id number] [address] [place] [address] Jun, [facility] [address] [facility] [id number] [address] [place] [address] Jun, Strain of right shoulder, scherer bsequent encounter S46.911D [place] [address] [id number] [address] [place] [address] Jun, Strain of right shoulder, scherer bsequent encounter S46.911D [place] [address] [id number] [address] [place] [address] Jun, Anxiety F41.9 [facility] [address] [place] [id number] Jun, Neurogenic bladder N31.9 and Anxiety F41 .9 [facility] [address] [place] [id number] May, Anxiety F41.9 [place] [address] [id number] [address] [place] [address] May, Dysuria R30.0 [place] [address] [id number] [address] [place] [address] May, Strain of right shoulder, scherer bsequent encounter S46.911D and Anxiety F41.9 [place] [address] [id number] [address] [place] [address] Apr, Via [facility] [address] [place] [id number] Apr, Strain of right shoulder, subsequent enc ounter S46.911D [place] [address] [id number] [address] [place] [address] 14 Apr, 2019 Strain of right shoulder, scherer bsequent encounter S46.911D and Anxiety F41.9 [facility] [address] [place] [id number] 13 Apr, 2019 Type 2 diabetes mellitus without complic ation, without long-term current use of insulin E11.9 and Neurogenic bladder N31.9 [facility] [address] [place] [id number] Apr, Strain of right shoulder, subsequent enc ounter S46.911D ; History of GI bleed Z87.19 ; Neurogenic bladder N31.9 and Reactive depression F32.9 [place] [address] [id number] [address] [place] [address] 10 Apr, 2019 Acute pain of left shoulder M25.512 [facility] [address] [id number] [address] [place] [address] 07 Apr, 2019 [facility] [address] [id number] [address] [place] [address] Apr, Anxiety F41.9 and 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 Via [facility] [address] [place] [id number] March, Gastrointestinal hemorrhage associated w ith acute gastritis K29.01 [facility] [address] [id number] [address] [place] [address] March, Via [facility] [address] [place] [id number] March, Bronchitis J40 [facility] [address] [id number] [address] [place] [address] March, Cough R05 [facility] [address] [id number] [address] [place] [address] March, Other chronic pain G89.29 [facility] [address] [id number] [address] [place] [address] March, Anxiety F41.9 [facility] [address] [id number] [address] [place] [address] March, [facility] [address] [id number] [address] [place] [address] Feb, Other chronic pain G89.29 [facility] [address] [id number] [address] [place] [address] Feb, Anxiety F41.9 [facility] [address] [id number] [address] [place] [address] Feb, Other chronic pain G89.29 Via [facility] [address] [place] [id number] Feb, Neurogenic bladder N31.9 and Suprapubic catheter Z93.59 [facility] [address] [id number] [address] [place] [address] Jan, Anxiety F41.9 [facility] [address] [id number] [address] [place] [address] Dec, Anxiety F41.9 [facility] [address] [id number] [address] [place] [address] Dec, Other chronic pain G89.29 an d Anxiety F41.9 [facility] [address] [id number] [address] [place] [address] Dec, Via [employer] [address] [place] [id number] Dec, Neurogenic bladder N31.9 and Suprapubic catheter Z93.59 [facility] [address] [id number] [address] [place] [address] Nov, Other chronic pain G89.29 an d Anxiety F41.9 [facility] [address] [id number] [address] [place] [address] Nov, Via [employer] [address] [place] [id number] Nov, Suprapubic catheter Z93.59 [facility] [address] [id number] [address] [place] [address] Oct, Other chronic pain G89.29 an d Anxiety F41.9 [facility] [address] [id number] [address] [place] [address] Oct, [facility] [address] [id number] [address] [place] [address] Oct, Suprapubic catheter Z93.59 [facility] [address] [id number] [address] [place] [address] Oct, Via [employer] [address] [place] [id number] Oct, [facility] [address] [id number] [address] [place] [address] Oct, Anxiety F41.9 [facility] [address] [id number] [address] [place] [address] Oct, Anxiety F41.9 Via [facility] [address] [place] [id number] Oct, Other chronic pain G89.29 [facility] [address] [id number] [address] [place] [address] Sep, Other chronic pain G89.29 Via [facility] [address] [place] [id number] Sep, Suprapubic catheter Z93.59 and Cervicalg ia M54.2 [facility] [address] [id number] [address] [place] [address] Sep, [facility] [address] [id number] [address] [place] [address] Sep, [facility] [address] [id number] [address] [place] [address] Sep, Via [facility] [address] [place] [id number] Aug, Cystitis N30.90 [facility] [address] [id number] [address] [place] [address] Aug, [facility] [address] [id number] [address] [place] [address] Aug, Other chronic pain G89.29 [facility] [address] [id number] [address] [place] [address] Aug, Via [facility] [address] [place] [address] Aug, Encounter for suprapubic catheter care Z 43.5 [facility] [address] [id number] [address] [place] [address] Jul, Via [facility] [address] [place] [id number] Jul, [facility] [address] [id number] [address] [place] [address] Jul, Other chronic pain G89.29 [facility] [address] [id number] [address] [place] [address] Jul, [facility] [address] [id number] [address] [place] [address] Jul, Via [facility] [address] [place] [id number] Jun, Postmenopausal atrophic vaginitis N95.2 [facility] [address] [id number] [address] [place] [address] Jun, Other chronic pain G89.29 [facility] [address] [id number] [address] [place] [address] Jun, Via [facility] [address] [place] [id number] May, Anxiety F41.9 ; Type 2 diabetes mellitus without complication, without long-term current use of insulin E11.9 ; Hypertension I10 ; Low back pain M54.5 ; Paroxysmal atrial fibrillation I48.0 and 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 [facility] [address] [id number] [address] [place] [address] May, Other chronic pain G89.29 Via [facility] [address] [place] [id number] May, Low back pain M54.5 [facility] [address] [id number] [address] [place] [address] May, [facility] [address] [id number] [address] [place] [address] Apr, Other chronic pain G89.29 [facility] [address] [id number] [address] [place] [address] Apr, [facility] [address] [id number] [address] [place] [address] Apr, Via [facility] [address] [place] [id number] Apr, Closed compression fracture of L3 lumbar vertebra with routine healing, subsequent encounter S32.030D [facility] [address] [place] [id number] Apr, Low back pain M54.5 [facility] [address] [place] [id number] Apr, Coccydynia M53.3 [facility] [address] [id number] [address] [place] [address] March, [facility] [address] [id number] [address] [place] [address] March, Other chronic pain G89.29 [facility] [address] [id number] [address] [place] [address] March, [facility] [address] [id number] [address] [place] [address] March, [facility] [address] [id number] [address] [place] [address] Feb, [facility] [address] [id number] [address] [place] [address] Feb, Other chronic pain G89.29 Via [facility] [address] [place] [id number] Feb, Other chronic pain G89.29 and Anxiety F4 1.9 [facility] [address] [id number] [address] [place] [address] Feb, [facility] [address] [id number] [address] [place] [address] Jan, [facility] [address] [id number] [address] [place] [address] Jan, [facility] [address] [id number] [address] [place] [address] Jan, [facility] [address] [facility] [id number] [address] [place] [address] Jan, [facility] [address] [facility] [id number] [address] [place] [address] Dec, Via [facility] [address] [place] [id number] Dec, Peripheral vascular disease I73.9 ; 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 ; Other chronic pain G89.29 ; Anxiety F41.9 ; Reactive depression F32.9 ; Insomnia G47.00 and Type 2 diabetes mellitus without complication, without long-term current use of insulin E11.[address] [id number] [place] [address] Nov, [facility] [address] [id number] [id number] Nov, Anxiety F41.9 [facility] [address] [facility] [id number] [address] [place] [address] Nov, [facility] [address] [id number] [place] [id number] Nov, Anxiety F41.9 [facility] [address] [place] [id number] Nov, Status post surgery Z98.890 ; Confused R 41.0 ; Anxiety F41.9 and Other chronic pain G89.29 [facility] [address] [id number] [place] [id number] Nov, Other chronic pain G89.29 [facility] [address] [facility] [id number] [address] [place] [address] Oct, [place] [address] [id number] [address] Oct, Other chronic pain G89.29 [facility] [address] [facility] [id number] [address] [place] [address] Oct, Anxiety F41.9 [facility] [address] [id number] [place] [id number] Sep, Other chronic pain G89.29 [facility] [address] [id number] [place] [id number] Sep, Via [facility] [address] [place] [id number] Aug, Dysuria R30.0 and Anxiety F41.9 [facility] [address] [id number] [address] [place] [address] Aug, [facility] [address] [id number] [place] [id number] Aug, Other chronic pain G89.29 [facility] [address] [facility] [id number] [address] [place] [address] Jul, Other chronic pain G89.29 [facility] [address] [id number] [place] [id number] Jun, [facility] [address] [id number] [place] [address] Jun, Other chronic pain G89.29 [facility] [address] [id number] [address] [place] [address] Jun, [facility] [address] [facility] [id number] [address] [place] [address] May, Other chronic pain G89.29 [facility] [address] [id number] [address] [place] [address] Apr, Other chronic pain G89.29 [facility] [address] [place] [id number] Apr, Reactive depression F32.9 and Pharyngeal dysphagia R13.13 [facility] [address] [id number] [address] [place] [address] Apr, Urinary tract infection with out hematuria, site unspecified N39.0 [facility] [address] [id number] [address] [place] [address] March, Other chronic pain G89.29 [facility] [address] [id number] [address] [place] [address] Feb, Other chronic pain G89.29 [facility] [address] [id number] [address] [place] [address] Feb, [facility] [address] [id number] [place] [id number] Feb, [facility] [employer] [address] [place] [id number] Feb, Dysuria R30.0 and Ventral hernia without obstruction or gangrene K43.9 [place] [id number] [id number] [address] [place] [address] Jan, Other chronic pain G89.29 [facility] [address] [id number] [place] [id number] Dec, Other chronic pain G89.29 [facility] [address] [id number] [address] [place] [address] Nov, Other chronic pain G89.29 [facility] [employer] [address] [place] [id number] Nov, Lymphadenitis I88.9 [facility] [address] [facility] [id number] [address] [place] [address] Nov, Other chronic pain G89.29 [facility] [address] [id number] [address] [place] [address] Nov, [facility] [address] [id number] [place] [id number] Nov, Other chronic pain G89.29 [facility] [address] [place] [id number] Oct, Low back pain M54.5 ; Hypertension I10 a nd Type 2 diabetes mellitus without complication, without long-term current use of insulin E11.9 [facility] [address] [id number] [address] [place] [address] Oct, [facility] [address] [id number] [address] [place] [address] Oct, [facility] [address] [id number] [address] [place] [address] Oct, [facility] [address] [id number] [address] [place] [address] Oct, [facility] [address] [id number] [address] [place] [address] Sep, [facility] [address] [id number] [address] [place] [address] Sep, [facility] [address] [id number] [address] [place] [address] Aug, Other chronic pain G89.29 [facility] [address] [id number] [address] [place] [address] Jul, [facility] [address] [id number] [address] [place] [address] Jul, [facility] [address] [id number] [address] [place] [address] Jul, [facility] [address] [id number] [address] [place] [address] Jun, [facility] [address] [id number] [address] [place] [address] Jun, Via [facility] [address] [place] [id number] Jun, Low back pain M54.5 ; Other chronic pain G89.29 and Coronary artery disease I25.10 [facility] [address] [id number] [address] [place] [address] Jun, [facility] [address] [id number] [address] [place] [address] 27 May, 2016 [facility] [address] [id number] [address] [place] [address] 15 May, 2016 [facility] [address] [id number] [address] [place] [address] May, Other chronic pain G89.29 [facility] [address] [id number] [address] [place] [address] May, [facility] [address] [id number] [address] [place] [address] 28 Apr, 2016 [facility] [address] [id number] [address] [place] [address] 17 Apr, 2016 Acute cystitis without hemat uria N30.00 [facility] [address] [id number] [address] [place] [address] 16 Apr, 2016 Acute cystitis without hemat uria N30.00 ; Coronary artery disease I25.10 ; Low back pain M54.5 and Other chronic pain G89.29 [facility] [address] [id number] [address] [place] [address] Apr, Other chronic pain G89.29 [facility] [address] [id number] [address] [place] [address] March, Other chronic pain G89.29 [facility] [address] [id number] [address] [place] [address] 18 Feb, 2016 [facility] [address] [id number] [address] [place] [address] 15 Feb, 2016 Arthritis M19.90 [facility] [address] [id number] [address] [place] [address] Feb, [facility] [address] [id number] [address] [place] [address] 30 Jan, 2016 [facility] [address] [id number] [address] [place] [address] Jan, [facility] [address] [id number] [address] [place] [address] Jan, Other chronic pain G89.29 [facility] [address] [id number] [address] [place] [id number] Jan, Hypertension I10 ; Coronary artery disease I25.10 and Insomnia G47.00 [facility] [address] [id number] [address] [place] [id number] Jan, [facility] [address] [id number] [address] [place] [id number] Dec, Right hip pain M25.551 [facility] [address] [id number] [address] [place] [id number] Dec, [facility] [address] [id number] [address] [place] [id number] Dec, [facility] [address] [id number] [address] [place] [id number] Dec, [facility] [address] [id number] [address] [place] [id number] Dec, Other chronic pain G89.29 [facility] [address] [id number] [address] [place] [id number] Dec, [facility] [address] [id number] [address] [place] [phone] Nov, [facility] [address] [id number] [address] [place] [id number] Nov, Other chronic pain G89.29 [facility] [address] [id number] [address] [place] [id number] Nov, Right hip pain M25.551 and C oronary artery disease I25.10 [facility] [address] [id number] [address] [place] [id number] Nov, Other chronic pain G89.29 [facility] [address] [id number] [address] [place] [id number] Oct, [facility] [address] [id number] [address] [place] [phone] Oct, [facility] [address] [id number] [address] [place] [phone] Sep, [facility] [address] [id number] [address] [place] [id number] Sep, [facility] [address] [id number] [address] [place] [id number] Aug, [facility] [address] [id number] [address] [place] [id number] Aug, Hypertension I10 ; Coronary artery disease I25.10 and Arthritis M19.90 [facility] [address] [id number] [address] [place] [id number] Jun, [facility] [address] [id number] [address] [place] [id number] Jun, Essential hypertension, jayson gn 401.1 ; Other chronic pain 338.29 and Chronic airway obstruction, not elsewhere classified 496 [facility] [address] [id number] [address] [place] [id number] Jun, [facility] [address] [id number] [address] [place] [id number] Jun, [facility] [address] [id number] [address] [place] [id number] Jun, [facility] [address] [id number] [address] [place] [id number] May, [facility] [address] [id number] [address] [place] [id number] May, [facility] [address] [facility] [id number] [address] [place] [id number] Apr, [facility] [address] [id number] [address] [place] [address] [address] Apr, [facility] [address] [id number] [address] [place] [address], [place] [address] Apr, [facility] [address] [id number] [address] [place] [address], [place] [address] March, [facility] [address] [id number] [address] [place] [address], [place] [address] March, [facility] [address] [id number] [address] [place] [address], [place] [address] March, [facility] [address] [id number] [address] [place] [address], [place] [address] March, [facility] [address] [id number] [address] [place] [address], [place] [address] March, Sialadenitis 527.2 [facility] [address] [id number] [address] [place] [address], [place] [address] Feb, [facility] [address] [id number] [address] [place] [address], [place] [address] Feb, [facility] [address] [id number] [address] [place] [address], [place] [address] Feb, [facility] [address] [id number] [address] [place] [address], [place] [address] Feb, [facility] [address] [id number] [address] [place] [address], [place] [address] Feb, [facility] [address] [id number] [address] [place] [address], [place] [address] Jan, [facility] [address] [id number] [address] [place] [address], [place] [address] Jan, [facility] [address] [id number] [address] [place] [address], [place] [address] Jan, [facility] [address] [id number] [address] [place] [address], [place] [address] Jan, [facility] [address] [id number] [address] [place] [address], [place] [address] Jan, [facility] [address] [id number] [address] [place] [address], [place] [address] Jan, [facility] [address] [id number] [address] [place] [address], [place] [address] Dec, [facility] [address] [id number] [address] [place] [address], [place] [address] Dec, [facility] [address] [id number] [address] [place] [address], [place] [address] Dec, [facility] [address] [id number] [address] [place] [address], [place] [address] Dec, [facility] [address] [id number] [address] [place] [address], [place] [address] Dec, [facility] [address] [id number] [address] [place] [address], [place] [address] Dec, [facility] [address] [id number] [address] [place] [address], [place] [address] Nov, [facility] [address] [id number] [address] [place] [address], [place] [address] Nov, [facility] [address] [id number] [address] [place] [address], [place] [address] Nov, [facility] [address] [id number] [address] [place] [address], [place] [address] Nov, [facility] [address] [id number] [address] [place] [address], [place] [address] Nov, [facility] [address] [id number] [address] [place] [address], [place] [address] Nov, [facility] [address] [id number] [address] [place] [address], [place] [address] Nov, [facility] [address] [id number] [address] [place] [address], [place] [address] 16 Nov, 2014 [facility] [address] [id number] [address] [place] [address], [place] [address] Nov, [facility] [address] [id number] [address] [place] [address], [place] [address] Nov, [facility] [address] [id number] [address] [place] [address], [place] [address] Nov, [facility] [address] [id number] [address] [place] [address], [place] [address] Nov, [facility] [address] [id number] [address] [place] [address], [place] [address] Nov, [facility] [address] [id number] [address] [place] [address], [place] [address] Nov, [facility] [address] [id number] [address] [place] [address], [place] [address] Oct, [facility] [address] [id number] [address] [place] [address], [place] [address] Oct, [facility] [address] [id number] [address] [place] [address], [place] [address] Oct, [facility] [address] [id number] [address] [place] [address], [place] [address] 18 Oct, 2014 [facility] [address] [id number] [address] [place] [address], [place] [address] 18 Oct, 2014 [facility] [address] [id number] [address] [place] [address], [place] [address] 17 Oct, 2014 [facility] [address] [id number] [address] [place] [address], [place] [address] 17 Oct, 2014 [facility] [address] [id number] [address] [place] [address], [place] [address] 10 Oct, 2014 [facility] [address] [id number] [address] [place] [address], [place] [address] Oct, [facility] [address] [id number] [address] [place] [address], [place] [address] Sep, [facility] [address] [id number] [address] [place] [address], [place] [address] Sep, [facility] [address] [id number] [address] [place] [address], [place] [address] Sep, [facility] [address] [id number] [address] [place] [address], [place] [address] Sep, [facility] [address] [id number] [address] [place] [address], [place] [address] Sep, [facility] [address] [id number] [address] [place] [address], [place] [address] Sep, [facility] [address] [id number] [address] [place] [address], [place] [address] Sep, [facility] [address] [id number] [address] [place] [address], [place] [address] Sep, [facility] [address] [id number] [address] [place] [address], [place] [address] Sep, [facility] [address] [id number] [address] [place] [address], [place] [address] Sep, [facility] [address] [id number] [address] [place] [address], [place] [address] Sep, [facility] [address] [id number] [address] [place] [address], [place] [address] Sep, [facility] [address] [id number] [address] [place] [address], [place] [address] Aug, [facility] [address] [id number] [address] [place] [address], [place] [address] Aug, [facility] [address] [id number] [address] [place] [address], [place] [address] Aug, [facility] [address] [id number] [address] [place] [address], [place] [address] 29 Aug, 2014 [facility] [address] [id number] [address] [place] [address], [place] [address] Aug, [facility] [address] [id number] [address] [place] [address], [place] [address] 28 Aug, 2014 [facility] [address] [id number] [address] [place] [address], [place] [address] Aug, [facility] [address] [id number] [address] [place] [address], [place] [address] 17 Aug, 2014 [facility] [address] [id number] [address] [place] [address], [place] [address] 30 Jul, 2013 [facility] [address] [id number] [address] [place] [address], [place] [address] 30 Jul, 2013 [facility] [address] [id number] [address] [place] [address], [place] [address] 30 Jul, 2013 [facility] [address] [id number] [address] [place] [address], [place] [address] 30 Jul, 2013 [facility] [address] [id number] [address] [place] [address], [place] [address] 25 Jul, 2013 [facility] [address] [id number] [address] [place] [address], [place] [address] 25 Jul, 2013 [facility] [address] [id number] [address] [place] [address], [place] [address] 15 Jul, 2013 [facility] [address] [id number] [address] [place] [address], [place] [address] 15 Jul, 2013 [facility] [address] [id number] [address] [place] [address], [place] [address] 11 Jul, 2014 [facility] [address] [id number] [address] [place] [address], [place] [address] 11 Jul, 2013 [facility] [address] [id number] [address] [place] [address], [place] [address] 29 Jun, 2014 [facility] [address] [id number] [facility] [place] [address] Jun, [facility] [address] [id number] [facility] [place] [address] Jun, [facility] [address] [id number] [facility] [place] [address] Jun, [facility] [address] [id number] [address] [place] [address], [place] [address] Jun, [facility] [address] [id number] [address] [place] [address], [place] [address] Jun, [facility] [address] [id number] [address] [place] [address], [place] [address] Jun, [facility] [address] [id number] [address] [place] [address], [place] [address] Jun, [facility] [address] [id number] [address] [place] [address], [place] [address] Jun, [facility] [address] [id number] [address] [place] [address], [place] [address] Jun, [facility] [address] [id number] [address] [place] [address], [place] [address] Jun, [facility] [address] [id number] [address] [place] [address], [place] [address] Jun, [facility] [address] [id number] [address] [place] [address], [place] [address] Jun, [facility] [address] [id number] [address] [place] [address], [place] [address] Jun, [facility] [address] [id number] [address] [place] [address], [place] [address] Jun, [facility] [address] [id number] [address] [place] [address], [place] [address] Jun, [facility] [address] [id number] [address] [place] [address], [place] [address] Jun, [facility] [address] [id number] [address] [place] [address], [place] [address] Jun, [facility] [address] [id number] [address] [place] [address], [place] [address] Jun, [facility] [address] [id number] [address] [place] [address], [place] [address] Jun, [facility] [address] [id number] [address] [place] [address], [place] [address] Jun, [facility] [address] [id number] [address] [place] [address], [place] [address] Jun, [facility] [address] [id number] [address] [place] [address], [place] [address] May, [facility] [address] [id number] [address] [place] [address], [place] [address] May, [facility] [address] [id number] [address] [place] [address], [place] [address] May, [facility] [address] [id number] [address] [place] [address], [place] [address] May, [facility] [address] [id number] [address] [place] [address], [place] [address] May, [facility] [address] [id number] [address] [place] [address], [place] [address] May, [facility] [address] [id number] [address] [place] [address], [place] [address] May, [facility] [address] [id number] [address] [place] [address], [place] [address] May, [facility] [address] [id number] [address] [place] [address], [place] [address] May, [facility] [address] [id number] [address] [place] [address], [place] [address] May, [facility] [address] [id number] [address] [place] [address], [place] [address] May, [facility] [address] [id number] [facility] [place] [address] May, [facility] [address] [id number] [address] [place] [address], [place] [address] May, [facility] [address] [id number] [address] [place] [address], [place] [address] Apr, [facility] [address] [id number] [address] [place] [address], [place] [address] Apr, [facility] [address] [id number] [address] [place] [address], [place] [address] Apr, [facility] [address] [id number] [address] [place] [address], [place] [address] Apr, [facility] [address] [id number] [address] [place] [address], [place] [address] Apr, [facility] [address] [id number] [address] [place] [address], [place] [address] Apr, [facility] [address] [id number] [address] [place] [address], [place] [address] Apr, [facility] [address] [id number] [address] [place] [address], [place] [address] Apr, [facility] [address] [id number] [address] [place] [address], [place] [address] Apr, [facility] [address] [id number] [address] [place] [address], [place] [address] March, [facility] [address] [id number] [address] [place] [address], [place] [address] March, [facility] [address] [id number] [address] [place] [address], [place] [address] March, [facility] [address] [id number] [address] [place] [address], [place] [address] March, [facility] [address] [id number] [facility] [place] [address] March, [facility] [address] [id number] [facility] [place] [address] March, [facility] [address] [id number] [facility] [place] [address] March, [facility] [address] [id number] [address] [place] [address], [place] [address] March, [facility] [address] [id number] [address] [place] [address], [place] [address] March, [facility] [address] [id number] [address] [place] [address], [place] [address] March, [facility] [address] [id number] [address] [place] [address], [place] [address] March, [facility] [address] [id number] [address] [place] [address], [place] [address] March, [facility] [address] [id number] [address] [place] [address], [place] [address] March, [facility] [address] [id number] [address] [place] [address], [place] [address] March, [facility] [address] [id number] [address] [place] [address], [place] [address] March, [facility] [address] [id number] [address] [place] [address], [place] [address] March, [facility] [address] [id number] [address] [place] [address], [place] [address] March, [facility] [address] [id number] [address] [place] [address], [place] [address] March, [facility] [address] [id number] [address] [place] [address], [place] [address] March, [facility] [address] [id number] [address] [place] [address], [place] [address] March, [facility] [address] [id number] [facility] [place] [address] Feb, [facility] [address] [id number] [facility] [place] [address] Feb, [facility] [address] [id number] [facility] [place] [address] Feb, [facility] [address] [id number] [address] [place] [address], [place] [address] Feb, [facility] [address] [id number] [address] [place] [address], [place] [address] Feb, [facility] [address] [id number] [address] [place] [address], [place] [address] Feb, [facility] [address] [id number] [address] [place] [address], [place] [address] Feb, [facility] [address] [id number] [address] [place] [address], [place] [address] Feb, [facility] [address] [id number] [address] [place] [address], [place] [address] Jan, [facility] [address] [id number] [address] [place] [address], [place] [address] Jan, [facility] [address] [id number] [address] [place] [address], [place] [address] Jan, [facility] [address] [id number] [address] [place] [address], [place] [address] Jan, [facility] [address] [id number] [address] [place] [address], [place] [address] Jan, [facility] [address] [id number] [address] [place] [address], [place] [address] Jan, [facility] [address] [id number] [address] [place] [address], [place] [address] Jan, [facility] [address] [id number] [facility] [place] [address] Jan, [facility] [address] [id number] [address] [place] [address], [place] [address] Jan, [facility] [address] [id number] [address] [place] [address], [place] [address] Jan, [facility] [address] [id number] [address] [place] [address], [place] [address] Dec, [facility] [address] [id number] [address] [place] [address], [place] [address] Dec, [facility] [address] [id number] [address] [place] [address], [place] [address] Dec, [facility] [address] [id number] [address] [place] [address], [place] [address] Dec, [facility] [address] [id number] [address] [place] [address], [place] [address] Dec, [facility] [address] [id number] [address] [place] [address], [place] [address] Dec, [facility] [address] [id number] [address] [place] [address], [place] [address] Dec, [facility] [address] [id number] [address] [place] [address], [place] [address] Dec, [facility] [address] [id number] [address] [place] [address], [place] [address] Nov, [facility] [address] [id number] [address] [place] [address], [place] [address] Nov, [facility] [address] [id number] [address] [place] [address], [place] [address] Nov, [facility] [address] [id number] [address] [place] [address], [place] [address] Nov, [facility] [address] [id number] [address] [place] [address], [place] [address] Nov, [facility] [address] [id number] [address] [place] [address], [place] [address] Nov, [facility] [address] [id number] [address] [place] [address], [place] [address] Nov, [facility] [address] [id number] [address] [place] [address], [place] [address] Nov, [facility] [address] [id number] [address] [place] [address], [place] [address] Nov, [facility] [address] [id number] [address] [place] [address], [place] [address] Nov, [facility] [address] [id number] [address] [place] [address], [place] [address] Nov, [facility] [address] [id number] [address] [place] [address], [place] [address] Nov, [facility] [address] [id number] [address] [place] [address], [place] [address] Nov, [facility] [address] [id number] [address] [place] [address], [place] [address] Oct, [facility] [address] [id number] [address] [place] [address], [place] [address] Oct, [facility] [address] [id number] [address] [place] [address], [place] [address] Oct, [facility] [address] [id number] [address] [place] [address], [place] [address] Oct, [facility] [address] [id number] [address] [place] [address], [place] [address] Oct, [facility] [address] [id number] [address] [place] [address], [place] [address] Oct, [facility] [address] [id number] [address] [place] [address], [place] [address] 18 Oct, 2013 [facility] [address] [id number] [address] [place] [address], [place] [address] 18 Oct, 2012 [facility] [address] [id number] [address] [place] [address], [place] [address] 17 Oct, 2012 [facility] [address] [id number] [address] [place] [address], [place] [address] 17 Oct, 2013 [facility] [address] [id number] [address] [place] [address], [place] [address] 03 Oct, 2012 [facility] [address] [id number] [address] [place] [address], [place] [address] 03 Oct, 2013 [facility] [address] [id number] [address] [place] [address], [place] [address] 02 Oct, 2013 [facility] [address] [id number] [address] [place] [address], [place] [address] 02 Oct, 2013 [facility] [address] [id number] [address] [place] [address], [place] [address] 14 Sep, 2013 [facility] [address] [id number] [address] [place] [address], [place] [address] 14 Sep, 2013 [facility] [address] [id number] [address] [place] [address], [place] [address] 05 Sep, 2013 [facility] [address] [id number] [address] [place] [address], [place] [address] 05 Sep, 2013 [facility] [address] [id number] [address] [place] [address], [place] [address] 04 Sep, 2013 [facility] [address] [id number] [address] [place] [address], [place] [address] Sep, [facility] [address] [id number] [address] [place] [address], [place] [address] Sep, [facility] [address] [id number] [address] [place] [address], [place] [address] Sep, [facility] [address] [id number] [address] [place] [address] Sep, [facility] [address] [id number] [address] [place] [address], [place] [address] Sep, [facility] [address] [id number] [address] [place] [address], [place] [address] Aug, [facility] [address] [id number] [address] [place] [address], [place] [address] Aug, [facility] [address] [id number] [address] [place] [address], [place] [address] Aug, [facility] [address] [id number] [address] [place] [address], [place] [address] Aug, [facility] [address] [id number] [address] [place] [address], [place] [address] Aug, [facility] [address] [id number] [address] [place] [address], [place] [address] Aug, [facility] [address] [id number] [address] [place] [address], [place] [address] Aug, [facility] [address] [id number] [address] [place] [address], [place] [address] Aug, [facility] [address] [id number] [address] [place] [address], [place] [address] Aug, [facility] [address] [id number] [address] [place] [address], [place] [address] Aug, [facility] [address] [id number] [address] [place] [address] Aug, [facility] [address] [id number] [address] [place] [address], [place] [address] Aug, [facility] [address] [address] [id number] [address] [place] [address], [place] [address] Aug, [facility] [address] [id number] [address] [place] [address] Aug, [facility] [address] [id number] [address] [place] [address] 17 Aug, 2013 [facility] [address] [id number] [address] [place] [address], [place] [address] 14 Aug, 2013 [facility] [address] [id number] [address] [place] [address], [place] [address] 14 Aug, 2013 [facility] [address] [id number] [address] [place] [address], [place] [address] 01 Aug, 2013 [facility] [address] [id number] [address] [place] [address], [place] [address] 20 Jul, 2013 [facility] [address] [id number] [address] [place] [address], [place] [address] 19 Jul, 2013 [facility] [address] [id number] [address] [place] [address], [place] [address] 18 Jul, 2013 [facility] [address] [id number] [address] [place] [address], [place] [address] 11 Jul, 2013 [facility] [address] [id number] [address] [place] [address], [place] [address] 11 Jul, 2013 [facility] [address] [id number] [address] [place] [address], [place] [address] 28 Jun, 2013 [facility] [address] [id number] [address] [place] [address], [place] [address] Jun, [facility] [address] [id number] [address] [place] [address], [place] [address] Jun, [facility] [address] [id number] [address] [place] [address], [place] [address] 15 Jun, 2013 [facility] [address] [id number] [address] [place] [address], [place] [address] 14 Jun, 2013 [facility] [address] [id number] [address] [place] [address], [place] [address] Jun, [facility] [address] [id number] [address] [place] [address], [place] [address] Jun, [facility] [address] [id number] [address] [place] [address], [place] [address] Jun, [facility] [address] [id number] [address] [place] [address], [place] [address] Jun, [facility] [address] [id number] [address] [place] [address], [place] [address] Jun, [facility] [address] [id number] [address] [place] [address], [place] [address] May, [facility] [address] [id number] [address] [place] [address], [place] [address] May, [facility] [address] [id number] [address] [place] [address], [place] [address] May, [facility] [address] [id number] [address] [place] [address], [place] [address] May, [facility] [address] [id number] [address] [place] [address], [place] [address] May, [facility] [address] [id number] [address] [place] [address], [place] [address] May, [facility] [address] [id number] [address] [place] [address], [place] [address] May, [facility] [address] [id number] [address] [place] [address], [place] [address] May, [facility] [address] [id number] [address] [place] [address], [place] [address] May, [facility] [address] [id number] [address] [place] [address], [place] [address] Apr, [facility] [address] [id number] [address] [place] [address], [place] [address] Apr, [facility] [address] [id number] [address] [place] [address], [place] [address] Apr, [facility] [address] [id number] [address] [place] [address], [place] [address] Apr, [facility] [address] [id number] [address] [place] [address], [place] [address] Apr, [facility] [address] [id number] [address] [place] [address], [place] [address] Apr, [facility] [address] [id number] [address] [place] [address], [place] [address] Apr, [facility] [address] [id number] [address] [place] [address], [place] [address] March, [facility] [address] [id number] [address] [place] [address], [place] [address] Feb, [facility] [address] [id number] [address] [place] [address], [place] [address] Feb, [facility] [address] [id number] [address] [place] [address], [place] [address] Feb, [facility] [address] [id number] [address] [place] [address], [place] [address] Jan, [facility] [address] [id number] [address] [place] [address], [place] [address] Jan, [facility] [address] [id number] [address] [place] [address], [place] [address] Jan, [facility] [address] [id number] [address] [place] [address], [place] [address] 14 Jan, 2013 [facility] [address] [id number] [address] [place] [address], [place] [address] 12 Jan, 2013 [facility] [address] [id number] [address] [place] [address], [place] [address] 08 Jan, 2013 [facility] [address] [id number] [address] [place] [address], [place] [address] 07 Jan, 2013 [facility] [address] [id number] [address] [place] [address], [place] [address] 04 Jan, 2013 [facility] [address] [id number] [address] [place] [address] 28 Dec, 2012 [facility] [address] [id number] [address] [place] [address], [place] [address] 25 Dec, 2012 [facility] [address] [id number] [address] [place] [address], [place] [address] 13 Dec, 2012 [facility] [address] [id number] [address] [place] [address], [place] [address] 11 Dec, 2012 [facility] [address] [id number] [address] [place] [address], [place] [address] 07 Dec, 2012 [facility] [address] [id number] [address] [place] [address], [place] [address] 06 Dec, 2012 [facility] [address] [id number] [address] [place] [address], [place] [address] 05 Dec, 2012 [facility] [address] [id number] [address] [place] [address], [place] [address] Nov, [facility] [address] [id number] [address] [place] [address], [place] [address] 24 Nov, 2012 [facility] [address] [id number] [address] [place] [address], [place] [address] 18 Nov, 2012 [facility] [address] [id number] [address] [place] [address], [place] [address] 15 Nov, 2012 [facility] [address] [id number] [address] [place] [address], [place] [address] Nov, [facility] [address] [id number] [address] [place] [address], [place] [address] Nov, [facility] [address] [id number] [address] [place] [address], [place] [address] Nov, [facility] [address] [id number] [address] [place] [address], [place] [address] Oct, [facility] [address] [id number] [address] [place] [address], [place] [address] Oct, [facility] [address] [id number] [address] [place] [address], [place] [address] Oct, [facility] [address] [id number] [address] [place] [address], [place] [address] Oct, [facility] [address] [id number] [address] [place] [address], [place] [address] Oct, [facility] [address] [id number] [address] [place] [address], [place] [address] Oct, [facility] [address] [id number] [address] [place] [address], [place] [address] Oct, [facility] [address] [id number] [address] [place] [address], [place] [address] Oct, [facility] [address] [id number] [address] [place] [address], [place] [address] Oct, [facility] [address] [id number] [address] [place] [address], [place] [address] Oct, [facility] [address] [id number] [address] [place] [address], [place] [address] Oct, [facility] [address] [id number] [address] [place] [address], [place] [address] Oct, [facility] [address] [id number] [address] [place] [address], [place] [address] Sep, [facility] [address] [id number] [address] [place] [address], [place] [address] Sep, [facility] [address] [id number] [address] [place] [address], [place] [address] Sep, [facility] [address] [id number] [address] [place] [address], [place] [address] Sep, [facility] [address] [id number] [address] [place] [address], [place] [address] Sep, [facility] [address] [id number] [address] [place] [address] Sep, [facility] [address] [id number] [address] [place] [address], [place] [address] Sep, [facility] [address] [id number] [address] [place] [address] Sep, [facility] [address] [id number] [address] [place] [address], [place] [address] Sep, [facility] [address] [id number] [address] [place] [address] Sep, [facility] [address] [id number] [address] [place] [address], [place] [address] Sep, [facility] [address] [id number] [address] [place] [address], [place] [address] Aug, [facility] [address] [id number] [address] [place] [address] Aug, [facility] [address] [id number] [address] [place] [address] Aug, [facility] [address] [id number] [address] [place] [address] Aug, [facility] [address] [id number] [address] [place] [address] Aug, [facility] [address] [id number] [address] [place] [address] Aug, [facility] [address] [id number] [address] [place] [address] Aug, [facility] [address] [id number] [address] [place] [address] Aug, [facility] [address] [id number] [address] [place] [address] Aug, [facility] [address] [id number] [address] [place] [address] Aug, [facility] [address] [id number] [facility] [place] [address] 22 Jul, 2011 [facility] [address] [id number] [facility] [place] [address] 20 Jul, 2011 [facility] [address] [id number] [facility] [place] [address] 10 Jul, 2012 [facility] [address] [id number] [address] [place] [address], [place] [address] 06 Jul, 2012 [facility] [address] [id number] [facility] [place] [address] 30 Jun, 2012 [facility] [address] [id number] [address] [place] [address], [place] [address] Jun, [facility] [address] [id number] [address] [place] [address], [place] [address] 16 Jun, 2012 [facility] [address] [id number] [address] [place] [address], [place] [address] Jun, [facility] [address] [id number] [address] [place] [address], [place] [address] Jun, [facility] [address] [id number] [address] [place] [address], [place] [address] Jun, [facility] [address] [id number] [address] [place] [address], [place] [address] Jun, [facility] [address] [id number] [address] [place] [address], [place] [address] May, [facility] [address] [id number] [address] [place] [address], [place] [address] May, [facility] [address] [id number] [address] [place] [address], [place] [address] May, [facility] [address] [id number] [address] [place] [address], [place] [address] May, [facility] [address] [id number] [address] [place] [address], [place] [address] May, [facility] [address] [id number] [address] [place] [address], [place] [address] Apr, [facility] [address] [id number] [address] [place] [address], [place] [address] Apr, [facility] [address] [id number] [address] [place] [address], [place] [address] Apr, [facility] [address] [id number] [address] [place] [address], [place] [address] Apr, [facility] [address] [id number] [address] [place] [address], [place] [address] Apr, [facility] [address] [id number] [address] [place] [address], [place] [address] March, [facility] [address] [id number] [address] [place] [address], [place] [address] March, [facility] [address] [id number] [address] [place] [address], [place] [address] March, [facility] [address] [id number] [address] [place] [address], [place] [address] March, [facility] [address] [id number] [address] [place] [address], [place] [address] March, [facility] [address] [id number] [address] [place] [address], [place] [address] March, [facility] [address] [id number] [address] [place] [address], [place] [address] March, [facility] [address] [id number] [address] [place] [address], [place] [address] March, [facility] [address] [id number] [address] [place] [address], [place] [address] March, [facility] [address] [id number] [address] [place] [address], [place] [address] March, [facility] [address] [id number] [address] [place] [address], [place] [address] 30 Feb, 2012 [facility] [address] [id number] [address] [place] [address], [place] [address] 27 Feb, 2012 [facility] [address] [id number] [address] [place] [address], [place] [address] 26 Feb, 2012 [facility] [address] [id number] [address] [place] [address], [place] [address] Feb, [facility] [address] [id number] [address] [place] [address], [place] [address] Feb, [facility] [address] [id number] [address] [place] [address], [place] [address] Feb, [facility] [address] [id number] [address] [place] [address], [place] [address] Feb, [facility] [address] [id number] [address] [place] [address], [place] [address] Feb, [facility] [address] [id number] [address] [place] [address], [place] [address] Feb, [facility] [address] [id number] [address] [place] [address], [place] [address] 08 Jan, 2012 [facility] [address] [id number] [address] [place] [address], [place] [address] Jan, [facility] [address] [id number] [address] [place] [address], [place] [address] 05 Jan, 2012 [facility] [address] [id number] [address] [place] [address], [place] [address] Jan, [facility] [address] [id number] [address] [place] [address], [place] [address] Dec, [facility] [address] [id number] [address] [place] [address], [place] [address] Dec, [facility] [address] [id number] [address] [place] [address], [place] [address] Nov, [facility] [address] [id number] [address] [place] [address] Nov, [facility] [address] [id number] [address] [place] [address] Nov, [facility] [address] [id number] [address] [place] [address] Nov, [facility] [address] [id number] [address] [place] [address] Nov, [facility] [address] [id number] [address] [place] [address] Oct, [facility] [address] [id number] [address] [place] [address] Oct, [facility] [address] [id number] [address] [place] [address] Oct, [facility] [address] [id number] [address] [place] [address] Oct, [facility] [address] [id number] [address] [place] [address] Oct, [facility] [address] [id number] [address] [place] [address] Oct, [facility] [address] [id number] [address] [place] [address] Oct, [facility] [address] [id number] [address] [place] [address] Oct, [facility] [address] [id number] [address] [place] [address] Sep, IMMUNIZATIONS No Known Immunizations SOCIAL HISTORY [...] discharged 11/27/2017 11/26/2017 Hospitalization History [facility]- Went Unrepsonsive, Hit head 2017 Hospitalization History [facility]- Back Pain 8
--- OUTSIDE RECORDS SUMMARY | 2020-06-18 16:03 | XMS REPORT ---
Author Author Sanjuanita JOHNSON [facility] Address [address] [place] [address] Care Team Providers Care Deckhand Tuna Boat Name Role Phone ELIZABETH SHARIF Unavailable PROBLEMS Type Condition ICD9-CM Code TMD55-GO Code Onset Dates Condition S tatus SNOMED Code Problem Coronary artery disease I25.10 Active 17845393 Problem Hypertension I10 Active 1982493 3 Problem Other chronic pain G89.29 Active 8 4852021 Problem Hyperlipidemia E78.5 Active 94532 004 Problem Type 2 diabetes mellitus wit hout complication, without long-term current use of insulin E11.9 Active 343441148 Problem Low back pain M54.5 Active 990169 009 Problem Pharyngeal dysphagia R13.13 Active 27533363314612 Problem Anxiety F41.9 Active 12714019 Problem Peripheral vascular disease I73.9 Ac tive 403988688 Problem Suprapubic catheter Z93.59 Active 723286489 Problem Reactive depression F32.9 Active 71947216 Problem Neurogenic bladder N31.9 Active 3 82909972 Problem Ventral hernia without obstruction or gangrene K43 .9 Active 400382179 Problem Insomnia G47.00 Active 380391709 Problem Paroxysmal atrial fibrillation I48.0 Active 204451728 Problem Postmenopausal atrophic vaginitis N95.2 Active 51363149 Problem Encounter for suprapubic catheter care Z43.5 Active 158250364 ALLERGIES No Information ENCOUNTERS Encounter Location Date Diagnosis [facility] [address] [id number] [address] [place] [address] Jun, [facility] [address] [id number] [address] [place] [address] Jun, Strain of right shoulder, scherer bsequent encounter S46.911D [facility] [address] [id number] [address] [place] [address] Jun, Strain of right shoulder, scherer bsequent encounter S46.911D [facility] [address] [id number] [address] [place] [address] Jun, Anxiety F41.9 [facility] [address] [place] [id number] Jun, Neurogenic bladder N31.9 and Anxiety F41 .9 [facility] [address] [place] [id number] May, Anxiety F41.9 [facility] [address] [id number] [address] [place] [address] May, Dysuria R30.0 [facility] [address] [id number] [address] [place] [address] May, Strain of right shoulder, scherer bsequent encounter S46.911D and Anxiety F41.9 [facility] [address] [id number] [address] [place] [address] Apr, [facility] [address] [place] [id number] Apr, Strain of right shoulder, subsequent enc ounter S46.911D [facility] [address] [id number] [address] [place] [address] 14 Apr, 2019 Strain of right shoulder, scherer bsequent encounter S46.911D and Anxiety F41.9 [facility] [address] [place] [id number] 13 Apr, 2019 Type 2 diabetes mellitus without complic ation, without long-term current use of insulin E11.9 and Neurogenic bladder N31.9 [facility] [address] [place] [id number] 11 Apr, 2019 Strain of right shoulder, subsequent enc ounter S46.911D ; History of GI bleed Z87.19 ; Neurogenic bladder N31.9 and Reactive depression F32.9 [facility] [address] [id number] [address] [place] [address] 10 Apr, 2019 Acute pain of left shoulder M25.512 [facility] [address] [id number] [address] [place] [address] Apr, [facility] [address] [id number] [address] [place] [address] Apr, Anxiety F41.9 and 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 [facility] [address] [place] [id number] March, Gastrointestinal hemorrhage associated w ith acute gastritis K29.01 [facility] [address] [id number] [address] [place] [address] March, [facility] [employer] [address] [place] [id number] March, Bronchitis J40 [facility] [address] [id number] [address] [place] [address] March, Cough R05 [facility] [address] [id number] [address] [place] [address] March, Other chronic pain G89.29 [facility] [address] [id number] [address] [place] [address] March, Anxiety F41.9 [facility] [address] [id number] [address] [place] [address] March, [facility] [address] [id number] [address] [place] [address] Feb, Other chronic pain G89.29 [facility] [address] [id number] [address] [place] [address] Feb, Anxiety F41.9 [facility] [address] [id number] [address] [place] [address] Feb, Other chronic pain G89.29 [facility] [address] [place] [id number] Feb, Neurogenic bladder N31.9 and Suprapubic catheter Z93.59 [facility] [address] [id number] [address] [place] [address] Jan, Anxiety F41.9 [facility] [address] [id number] [address] [place] [address] Dec, Anxiety F41.9 [facility] [address] [id number] [address] [place] [address] Dec, Other chronic pain G89.29 an d Anxiety F41.9 [facility] [address] [id number] [address] [place] [address] Dec, [facility] [address] [place] [id number] Dec, Neurogenic bladder N31.9 and Suprapubic catheter Z93.59 [facility] [address] [id number] [address] [place] [address] Nov, Other chronic pain G89.29 an d Anxiety F41.9 [facility] [address] [id number] [address] [place] [address] Nov, [facility] [address] [place] [id number] Nov, Suprapubic catheter Z93.59 [facility] [address] [id number] [address] [place] [address] Oct, Other chronic pain G89.29 an d Anxiety F41.9 [facility] [address] [id number] [address] [place] [address] Oct, [facility] [address] [id number] [address] [place] [address] Oct, Suprapubic catheter Z93.59 [facility] [address] [id number] [address] [place] [address] Oct, Via [facility] [address] [place] [id number] Oct, [facility] [address] [id number] [address] [place] [address] Oct, Anxiety F41.9 [facility] [address] [id number] [address] [place] [address] Oct, Anxiety F41.9 [facility] [address] [place] [id number] Oct, Other chronic pain G89.29 [facility] [address] [id number] [address] [place] [address] Sep, Other chronic pain G89.29 [facility] [address] [place] [id number] Sep, Suprapubic catheter Z93.59 and Cervicalg ia M54.2 [facility] [address] [id number] [address] [place] [address] Sep, [facility] [address] [id number] [address] [place] [address] Sep, [facility] [address] [id number] [address] [place] [address] Sep, [facility] [employer] [address] [place] [id number] Aug, Cystitis N30.90 [facility] [address] [id number] [address] [place] [address] Aug, [facility] [address] [id number] [address] [place] [address] Aug, Other chronic pain G89.29 [facility] [address] [id number] [address] [place] [address] Aug, Via [facility] [employer] [address] [place] [id number] Aug, Encounter for suprapubic catheter care Z 43.5 [facility] [address] [id number] [address] [place] [address] Jul, Via [facility] [employer] [address] [place] [id number] Jul, [facility] [address] [id number] [address] [place] [address] 11 Jul, 2018 Other chronic pain G89.29 [facility] [address] [id number] [address] [place] [address] Jul, [facility] [address] [id number] [address] [place] [address] Jul, [facility] [employer] [address] [place] [id number] Jun, Postmenopausal atrophic vaginitis N95.2 [facility] [address] [id number] [address] [place] [address] Jun, Other chronic pain G89.29 [facility] [address] [id number] [address] [place] [address] Jun, Via [facility] [address] [place] [id number] May, Anxiety F41.9 ; Type 2 diabetes mellitus without complication, without long-term current use of insulin E11.9 ; Hypertension I10 ; Low back pain M54.5 ; Paroxysmal atrial fibrillation I48.0 and 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 [facility] [address] [id number] [address] [place] [address] May, Other chronic pain G89.29 [facility] [address] [place] [id number] May, Low back pain M54.5 [facility] [address] [id number] [address] [place] [address] May, [facility] [address] [id number] [address] [place] [address] Apr, Other chronic pain G89.29 [facility] [address] [id number] [address] [place] [address] Apr, [facility] [address] [id number] [address] [place] [address] Apr, Via [facility] [address] [place] [id number] 19 Apr, 2018 Closed compression fracture of L3 lumbar vertebra with routine healing, subsequent encounter S32.030D [facility] [address] [place] [id number] 14 Apr, 2018 Low back pain M54.5 [facility] [address] [place] [id number] 12 Apr, 2018 Coccydynia M53.3 [facility] [address] [id number] [address] [place] [address] March, [facility] [address] [id number] [address] [place] [address] March, Other chronic pain G89.29 [facility] [address] [id number] [address] [place] [address] March, [facility] [address] [id number] [address] [place] [address] March, [facility] [address] [id number] [address] [place] [address] Feb, [facility] [address] [id number] [address] [place] [address] Feb, Other chronic pain G89.29 Via [facility] [employer] [address] [place] [address] Feb, Other chronic pain G89.29 and Anxiety F4 1.9 [facility] [address] [id number] [address] [place] [address] Feb, [facility] [address] [id number] [address] [place] [address] Jan, [facility] [address] [id number] [address] [place] [address] Jan, [facility] [address] [id number] [address] [place] [address] Jan, [facility] [address] [id number] [address] [place] [address] Jan, [facility] [address] [facility] [id number] [address] [place] [address] Dec, [facility] [address] [place] [id number] Dec, Peripheral vascular disease I73.9 ; 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 ; Other chronic pain G89.29 ; Anxiety F41.9 ; Reactive depression F32.9 ; Insomnia G47.00 and Type 2 diabetes mellitus without complication, without long-term current use of insulin E11.9 [facility] [address] [place] [address] [id number] [place] [address] Nov, [facility] [address] [id number] [place] [id number] Nov, Anxiety F41.9 [facility] [address] [facility] [id number] [address] [place] [address] Nov, [facility] [address] [id number] [place] [id number] Nov, Anxiety F41.9 [facility] [address] [place] [id number] Nov, Status post surgery Z98.890 ; Confused R 41.0 ; Anxiety F41.9 and Other chronic pain G89.29 [facility] [address] [id number] [place] [id number] Nov, Other chronic pain G89.29 [facility] [address] [facility] [id number] [address] [place] [address] Oct, [facility] [address] [id number] [place] [address] Oct, Other chronic pain G89.29 [facility] [address] [facility] [id number] [address] [place] [address] Oct, Anxiety F41.9 [facility] [address] [id number] [place] [id number] Sep, Other chronic pain G89.29 [facility] [address] [id number] [place] [address] Sep, Via [employer] [facility] [address] [place] [id number] Aug, Dysuria R30.0 and Anxiety F41.9 [facility] [address] [id number] [address] [place] [address] Aug, [facility] [address] [id number] [place] [facility] [place] [id number] Aug, Other chronic pain G89.29 [facility] [address] [id number] [address] [place] [address] Jul, Other chronic pain G89.29 [facility] [address] [id number] [place] [id number] Jun, [facility] [address] [id number] [place] [id number] Jun, Other chronic pain G89.29 [facility] [address] [id number] [address] [place] [address] Jun, [facility] [address] [id number] [address] [place] [address] May, Other chronic pain G89.29 [facility] [address] [id number] [address] [place] [address] Apr, Other chronic pain G89.29 [facility] [employer] [address] [place] [id number] Apr, Reactive depression F32.9 and Pharyngeal dysphagia R13.13 [facility] [address] [id number] [address] [place] [address] Apr, Urinary tract infection with out hematuria, site unspecified N39.0 [facility] [address] [id number] [address] [place] [address] March, Other chronic pain G89.29 [facility] [address] [id number] [address] [place] [address] Feb, Other chronic pain G89.29 [facility] [address] [facility] [id number] [address] [place] [address] Feb, [facility] [address] [id number] [id number] Feb, Via [facility] [employer] [facility] [employer] [address] [place] [address] Feb, Dysuria R30.0 and Ventral hernia without obstruction or gangrene K43.9 [facility] [address] [facility] [id number] [address] [place] [address] Jan, Other chronic pain G89.29 [facility] [address] [id number] [id number] Dec, Other chronic pain G89.29 [facility] [address] [facility] [id number] [address] [place] [address] Nov, Other chronic pain G89.29 [facility] [address] [place] [id number] Nov, Lymphadenitis I88.9 [facility] [address] [facility] [id number] [address] [place] [address] Nov, Other chronic pain G89.29 [facility] [address] [facility] [id number] [address] [place] [address] Nov, [facility] [address] [id number] [id number] Nov, Other chronic pain G89.29 Via [facility] [address] [place] [id number] Oct, Low back pain M54.5 ; Hypertension I10 a nd Type 2 diabetes mellitus without complication, without long-term current use of insulin E11.9 [facility] [address] [facility] [id number] [address] [place] [address] Oct, [facility] [address] [id number] [address] [place] [address] Oct, [facility] [address] [id number] [address] [place] [address] Oct, [facility] [address] [id number] [address] [place] [address] Oct, [facility] [address] [id number] [address] [place] [address] Sep, [facility] [address] [id number] [address] [place] [address] Sep, [facility] [address] [id number] [address] [place] [address] Aug, Other chronic pain G89.29 [facility] [address] [id number] [address] [place] [address] Jul, [facility] [address] [id number] [address] [place] [address] Jul, [facility] [address] [id number] [address] [place] [address] Jul, [facility] [address] [id number] [address] [place] [address] Jun, [facility] [address] [id number] [address] [place] [address] Jun, [facility] [address] [place] [id number] Jun, Low back pain M54.5 ; Other chronic pain G89.29 and Coronary artery disease I25.10 [facility] [address] [id number] [address] [place] [address] Jun, [facility] [address] [id number] [address] [place] [address] May, [facility] [address] [id number] [address] [place] [address] 15 May, 2016 [facility] [address] [id number] [address] [place] [address] May, Other chronic pain G89.29 [facility] [address] [id number] [address] [place] [address] May, [facility] [address] [id number] [address] [place] [address] 28 Apr, 2016 [facility] [address] [id number] [address] [place] [address] 17 Apr, 2016 Acute cystitis without hemat uria N30.00 [facility] [address] [id number] [address] [place] [address] 16 Apr, 2016 Acute cystitis without hemat uria N30.00 ; Coronary artery disease I25.10 ; Low back pain M54.5 and Other chronic pain G89.29 [facility] [address] [id number] [address] [place] [address] 13 Apr, 2016 Other chronic pain G89.29 [facility] [address] [id number] [address] [place] [address] March, Other chronic pain G89.29 [facility] [address] [id number] [address] [place] [address] 18 Feb, 2016 [facility] [address] [id number] [address] [place] [address] 15 Feb, 2016 Arthritis M19.90 [facility] [address] [id number] [address] [place] [address] Feb, [facility] [address] [id number] [address] [place] [address] 30 Jan, 2016 [facility] [address] [id number] [address] [place] [address] Jan, [facility] [address] [id number] [address] [place] [address] Jan, Other chronic pain G89.29 [facility] [address] [id number] [address] [place] [address] Jan, Hypertension I10 ; Coronary artery disease I25.10 and Insomnia G47.00 [facility] [address] [id number] [address] [place] [address] Jan, [facility] [address] [id number] [address] [place] [address] Dec, Right hip pain M25.551 [facility] [address] [id number] [address] [place] [address] Dec, [facility] [address] [id number] [address] [place] [address] Dec, [facility] [address] [id number] [address] [place] [address] Dec, [facility] [address] [id number] [address] [place] [address] Dec, Other chronic pain G89.29 [facility] [address] [id number] [address] [place] [address] Dec, [facility] [address] [id number] [address] [place] [address] Nov, [facility] [address] [id number] [address] [place] [address] Nov, Other chronic pain G89.29 [facility] [address] [id number] [address] [place] [address] Nov, Right hip pain M25.551 and C oronary artery disease I25.10 [facility] [address] [id number] [address] [place] [phone] Nov, Other chronic pain G89.29 [facility] [address] [id number] [address] [place] [id number] Oct, [facility] [address] [id number] [address] [place] [id number] Oct, [facility] [address] [id number] [address] [place] [phone] Sep, [facility] [address] [id number] [address] [place] [id number] Sep, [facility] [address] [id number] [address] [place] [id number] Aug, [facility] [address] [id number] [address] [place] [id number] Aug, Hypertension I10 ; Coronary artery disease I25.10 and Arthritis M19.90 [facility] [address] [id number] [address] [place] [phone] Jun, [facility] [address] [facility] [id number] [address] [place] [id number] Jun, Essential hypertension, jayson gn 401.1 ; Other chronic pain 338.29 and Chronic airway obstruction, not elsewhere classified 496 [facility] [address] [id number] [address] [place] [id number] Jun, [facility] [address] [id number] [address] [place] [phone] Jun, [facility] [address] [facility] [id number] [address] [place] [phone] Jun, [facility] [address] [id number] [address] [place] [id number] May, [facility] [address] [id number] [address] [place] [phone] May, [facility] [address] [id number] [address] [place] [id number] Apr, [facility] [address] [id number] [address] [place] [phone] Apr, [facility] [address] [address] [id number] [address] [place] [address] Apr, [facility] [address] [id number] [address] [place] [address], [place] [address] March, [facility] [address] [id number] [address] [place] [address], [place] [address] March, [facility] [address] [id number] [address] [place] [address], [place] [address] March, [facility] [address] [id number] [address] [place] [address] March, [facility] [address] [id number] [address] [place] [address], [place] [address] March, Sialadenitis 527.2 [facility] [address] [id number] [address] [place] [address], [place] [address] Feb, [facility] [address] [id number] [address] [place] [address], [place] [address] Feb, [facility] [address] [id number] [address] [place] [address], [place] [address] Feb, [facility] [address] [id number] [address] [place] [address], [place] [address] Feb, [facility] [address] [id number] [address] [place] [address], [place] [address] Feb, [facility] [address] [id number] [address] [place] [address], [place] [address] Jan, [facility] [address] [id number] [address] [place] [address] Jan, [facility] [address] [id number] [address] [place] [address], [place] [address] Jan, [facility] [address] [id number] [address] [place] [address], [place] [address] Jan, [facility] [address] [id number] [address] [place] [address], [place] [address] 06 Jan, 2015 [facility] [address] [id number] [address] [place] [address], [place] [address] Jan, [facility] [address] [id number] [address] [place] [address], [place] [address] Dec, [facility] [address] [id number] [address] [place] [address], [place] [address] Dec, 2014 [facility] [address] [id number] [address] [place] [address], [place] [address] Dec, 2014 [facility] [address] [id number] [address] [place] [address], [place] [address] Dec, 2014 [facility] [address] [id number] [address] [place] [address], [place] [address] Dec, [facility] [address] [id number] [address] [place] [address], [place] [address] Dec, [facility] [address] [id number] [address] [place] [address], [place] [address] Nov, [facility] [address] [id number] [address] [place] [address], [place] [address] Nov, [facility] [address] [id number] [address] [place] [address], [place] [address] Nov, [facility] [address] [id number] [address] [place] [address] Nov, [facility] [address] [id number] [address] [place] [address] Nov, [facility] [address] [id number] [address] [place] [address], [place] [address] Nov, [facility] [address] [id number] [address] [place] [address], [place] [address] Nov, [facility] [address] [id number] [address] [place] [address], [place] [address] Nov, [facility] [address] [id number] [address] [place] [address] 16 Nov, 2014 [facility] [address] [id number] [address] [place] [address], [place] [address] Nov, [facility] [address] [id number] [address] [place] [address], [place] [address] Nov, [facility] [address] [id number] [address] [place] [address], [place] [address] Nov, [facility] [address] [id number] [address] [place] [address], [place] [address] Nov, [facility] [address] [id number] [address] [place] [address], [place] [address] Nov, [facility] [address] [id number] [address] [place] [address], [place] [address] Oct, [facility] [address] [id number] [address] [place] [address], [place] [address] Oct, [facility] [address] [id number] [address] [place] [address], [place] [address] Oct, [facility] [address] [id number] [address] [place] [address], [place] [address] 18 Oct, 2014 [facility] [address] [id number] [address] [place] [address], [place] [address] 18 Oct, 2014 [facility] [address] [id number] [address] [place] [address], [place] [address] 17 Oct, 2014 [facility] [address] [id number] [address] [place] [address], [place] [address] 17 Oct, 2014 [facility] [address] [id number] [address] [place] [address], [place] [address] 10 Oct, 2014 [facility] [address] [id number] [address] [place] [address], [place] [address] Oct, [facility] [address] [id number] [address] [place] [address], [place] [address] Sep, [facility] [address] [id number] [address] [place] [address], [place] [address] Sep, [facility] [address] [id number] [address] [place] [address], [place] [address] Sep, [facility] [address] [id number] [address] [place] [address], [place] [address] Sep, [facility] [address] [id number] [address] [place] [address], [place] [address] Sep, [facility] [address] [id number] [address] [place] [address], [place] [address] Sep, [facility] [address] [id number] [address] [place] [address], [place] [address] Sep, [facility] [address] [id number] [address] [place] [address], [place] [address] Sep, [facility] [address] [id number] [address] [place] [address], [place] [address] Sep, [facility] [address] [id number] [address] [place] [address], [place] [address] Sep, [facility] [address] [id number] [address] [place] [address], [place] [address] Sep, [facility] [address] [id number] [address] [place] [address], [place] [address] Sep, [facility] [address] [id number] [address] [place] [address], [place] [address] Aug, [facility] [address] [id number] [address] [place] [address], [place] [address] Aug, [facility] [address] [id number] [address] [place] [address], [place] [address] Aug, [facility] [address] [id number] [address] [place] [address], [place] [address] Aug, [facility] [address] [id number] [address] [place] [address], [place] [address] Aug, [facility] [address] [id number] [address] [place] [address], [place] [address] 28 Aug, 2014 [facility] [address] [id number] [address] [place] [address], [place] [address] Aug, [facility] [address] [id number] [address] [place] [address], [place] [address] 17 Aug, 2014 [facility] [address] [id number] [address] [place] [address], [place] [address] 30 Jul, 2013 [facility] [address] [id number] [address] [place] [address], [place] [address] 30 Jul, 2013 [facility] [address] [id number] [address] [place] [address], [place] [address] 30 Jul, 2013 [facility] [address] [id number] [address] [place] [address], [place] [address] 30 Jul, 2013 [facility] [address] [id number] [address] [place] [address], [place] [address] 25 Jul, 2013 [facility] [address] [id number] [address] [place] [address], [place] [address] 25 Jul, 2013 [facility] [address] [id number] [address] [place] [address], [place] [address] 15 Jul, 2014 [facility] [address] [id number] [address] [place] [address], [place] [address] 15 Jul, 2014 [facility] [address] [id number] [address] [place] [address], [place] [address] 11 Jul, 2013 [facility] [address] [id number] [address] [place] [address], [place] [address] Jul, [facility] [address] [id number] [address] [place] [address], [place] [address] Jun, [facility] [address] [id number] [address] [place] [address], [place] [address] Jun, [facility] [address] [id number] [facility] [place] [address] Jun, [facility] [address] [id number] [address] [place] [address], [place] [address] Jun, [facility] [address] [id number] [facility] [place] [address] Jun, [facility] [address] [id number] [address] [place] [address], [place] [address] Jun, [facility] [address] [id number] [address] [place] [address], [place] [address] Jun, [facility] [address] [id number] [address] [place] [address], [place] [address] Jun, [facility] [address] [id number] [address] [place] [address], [place] [address] Jun, [facility] [address] [id number] [address] [place] [address], [place] [address] Jun, [facility] [address] [id number] [address] [place] [address], [place] [address] Jun, [facility] [address] [id number] [address] [place] [address], [place] [address] Jun, [facility] [address] [id number] [address] [place] [address], [place] [address] Jun, [facility] [address] [id number] [address] [place] [address], [place] [address] Jun, [facility] [address] [id number] [address] [place] [address], [place] [address] Jun, [facility] [address] [id number] [address] [place] [address], [place] [address] Jun, [facility] [address] [id number] [address] [place] [address], [place] [address] Jun, [facility] [address] [id number] [address] [place] [address], [place] [address] Jun, [facility] [address] [id number] [facility] [address] Jun, [facility] [address] [id number] [address] [place] [address], [place] [address] Jun, [facility] [address] [id number] [address] [place] [address], [place] [address] Jun, [facility] [address] [id number] [address] [place] [address], [place] [address] Jun, [facility] [address] [id number] [address] [place] [address], [place] [address] May, [facility] [address] [id number] [address] [place] [address], [place] [address] May, [facility] [address] [id number] [address] [place] [address], [place] [address] May, [facility] [address] [id number] [address] [place] [address], [place] [address] May, [facility] [address] [id number] [address] [place] [address], [place] [address] May, [facility] [address] [id number] [address] [place] [address], [place] [address] May, [facility] [address] [id number] [address] [place] [address], [place] [address] May, [facility] [address] [id number] [address] [place] [address], [place] [address] May, [facility] [address] [id number] [address] [place] [address], [place] [address] May, [facility] [address] [id number] [address] [place] [address], [place] [address] May, [facility] [address] [id number] [address] [place] [address], [place] [address] May, [facility] [address] [id number] [address] [place] [address], [place] [address] May, [facility] [address] [id number] [facility] [address] May, [facility] [address] [id number] [facility] [place] [address] Apr, [facility] [address] [id number] [facility] [address] Apr, [facility] [address] [id number] [address] [place] [address], [place] [address] Apr, [facility] [address] [id number] [address] [place] [address], [place] [address] Apr, [facility] [address] [id number] [address] [place] [address], [place] [address] Apr, [facility] [address] [id number] [address] [place] [address], [place] [address] Apr, [facility] [address] [id number] [address] [place] [address], [place] [address] Apr, [facility] [address] [id number] [address] [place] [address], [place] [address] Apr, [facility] [address] [id number] [address] [place] [address], [place] [address] Apr, [facility] [address] [id number] [address] [place] [address], [place] [address] March, [facility] [address] [id number] [address] [place] [address], [place] [address] March, [facility] [address] [id number] [address] [place] [address], [place] [address] March, [facility] [address] [id number] [address] [place] [address], [place] [address] March, [facility] [address] [id number] [address] [place] [address], [place] [address] March, [facility] [address] [id number] [facility] [address] March, [facility] [address] [id number] [address] [place] [address], [place] [address] March, [facility] [address] [id number] [address] [place] [address], [place] [address] March, [facility] [address] [id number] [address] [place] [address], [place] [address] March, [facility] [address] [id number] [address] [place] [address], [place] [address] March, [facility] [address] [id number] [address] [place] [address], [place] [address] March, [facility] [address] [id number] [address] [place] [address], [place] [address] March, [facility] [address] [id number] [address] [place] [address], [place] [address] March, [facility] [address] [id number] [address] [place] [address], [place] [address] March, [facility] [address] [id number] [address] [place] [address], [place] [address] March, [facility] [address] [id number] [address] [place] [address], [place] [address] March, [facility] [address] [id number] [address] [place] [address], [place] [address] March, [facility] [address] [id number] [address] [place] [address], [place] [address] March, [facility] [address] [id number] [address] [place] [address], [place] [address] March, [facility] [address] [id number] [address] [place] [address], [place] [address] March, [facility] [address] [id number] [address] [place] [address], [place] [address] Feb, [facility] [address] [id number] [facility] [address] Feb, [facility] [address] [id number] [address] [place] [address], [place] [address] Feb, [facility] [address] [id number] [address] [place] [address], [place] [address] Feb, [facility] [address] [id number] [address] [place] [address], [place] [address] Feb, [facility] [address] [id number] [address] [place] [address], [place] [address] Feb, [facility] [address] [id number] [address] [place] [address], [place] [address] Feb, [facility] [address] [id number] [address] [place] [address], [place] [address] Feb, [facility] [address] [id number] [address] [place] [address], [place] [address] Jan, [facility] [address] [id number] [address] [place] [address], [place] [address] Jan, [facility] [address] [id number] [address] [place] [address], [place] [address] Jan, [facility] [address] [id number] [address] [place] [address], [place] [address] Jan, [facility] [address] [id number] [address] [place] [address], [place] [address] Jan, [facility] [address] [id number] [address] [place] [address], [place] [address] Jan, [facility] [address] [id number] [address] [place] [address], [place] [address] Jan, [facility] [address] [id number] [address] [place] [address], [place] [address] Jan, [facility] [address] [id number] [address] [place] [address], [place] [address] Jan, [facility] [address] [id number] [address] [place] [address], [place] [address] Jan, [facility] [address] [id number] [address] [place] [address], [place] [address] Dec, [facility] [address] [id number] [address] [place] [address], [place] [address] Dec, [facility] [address] [id number] [address] [place] [address], [place] [address] Dec, [facility] [address] [id number] [address] [place] [address], [place] [address] Dec, [facility] [address] [id number] [address] [place] [address], [place] [address] Dec, [facility] [address] [id number] [address] [place] [address], [place] [address] Dec, [facility] [address] [id number] [address] [place] [address], [place] [address] Dec, [facility] [address] [id number] [address] [place] [address], [place] [address] Dec, [facility] [address] [id number] [address] [place] [address], [place] [address] Nov, [facility] [address] [id number] [address] [place] [address], [place] [address] Nov, [facility] [address] [id number] [address] [place] [address], [place] [address] Nov, [facility] [address] [id number] [address] [place] [address], [place] [address] Nov, [facility] [address] [id number] [address] [place] [address], [place] [address] Nov, [facility] [address] [id number] [address] [place] [address], [place] [address] Nov, [facility] [address] [id number] [address] [place] [address], [place] [address] Nov, [facility] [address] [id number] [address] [place] [address], [place] [address] Nov, [facility] [address] [id number] [address] [place] [address], [place] [address] Nov, [facility] [address] [id number] [address] [place] [address], [place] [address] Nov, [facility] [address] [id number] [address] [place] [address], [place] [address] Nov, [facility] [address] [id number] [address] [place] [address], [place] [address] Nov, [facility] [address] [id number] [address] [place] [address], [place] [address] Nov, [facility] [address] [id number] [address] [place] [address], [place] [address] Oct, [facility] [address] [id number] [address] [place] [address], [place] [address] Oct, [facility] [address] [id number] [address] [place] [address], [place] [address] Oct, [facility] [address] [id number] [address] [place] [address], [place] [address] Oct, [facility] [address] [id number] [address] [place] [address], [place] [address] Oct, [facility] [address] [id number] [address] [place] [address], [place] [address] Oct, [facility] [address] [id number] [address] [place] [address], [place] [address] Oct, [facility] [address] [id number] [address] [place] [address], [place] [address] Oct, [facility] [address] [id number] [address] [place] [address] 17 Oct, 2013 [facility] [address] [id number] [address] [place] [address], [place] [address] 17 Oct, 2013 [facility] [address] [id number] [address] [place] [address], [place] [address] 03 Oct, 2013 [facility] [address] [id number] [address] [place] [address], [place] [address] 03 Oct, 2013 [facility] [address] [id number] [address] [place] [address], [place] [address] 02 Oct, 2013 [facility] [address] [id number] [address] [place] [address], [place] [address] 02 Oct, 2013 [facility] [address] [id number] [address] [place] [address], [place] [address] 14 Sep, 2013 [facility] [address] [id number] [address] [place] [address] Sep, [facility] [address] [id number] [address] [place] [address], [place] [address] Sep, [facility] [address] [id number] [address] [place] [address], [place] [address] 05 Sep, 2013 [facility] [address] [id number] [address] [place] [address] Sep, [facility] [address] [id number] [address] [place] [address], [place] [address] Sep, [facility] [address] [id number] [address] [place] [address] Sep, [facility] [address] [id number] [address] [place] [address] Sep, [facility] [address] [id number] [address] [place] [address], [place] [address] Sep, [facility] [address] [id number] [address] [place] [address] Sep, [facility] [address] [id number] [address] [place] [address], [place] [address] 24 Aug, 2012 [facility] [address] [id number] [address] [place] [address], [place] [address] 24 Aug, 2012 [facility] [address] [id number] [address] [place] [address], [place] [address] 24 Aug, 2013 [facility] [address] [id number] [address] [place] [address], [place] [address] 24 Aug, 2012 [facility] [address] [id number] [address] [place] [address], [place] [address] Aug, 2012 [facility] [address] [id number] [address] [place] [address], [place] [address] Aug, 2012 [facility] [address] [id number] [address] [place] [address], [place] [address] Aug, [facility] [address] [id number] [address] [place] [address], [place] [address] Aug, [facility] [address] [id number] [address] [place] [address], [place] [address] Aug, [facility] [address] [id number] [address] [place] [address], [place] [address] 22 Aug, 2013 [facility] [address] [id number] [address] [place] [address], [place] [address] 18 Aug, 2013 [facility] [address] [id number] [address] [place] [address], [place] [address] 18 Aug, 2012 [facility] [facility] [address] [id number] [address] [place] [address], [place] [address] 18 Aug, 2013 [facility] [address] [id number] [address] [place] [address], [place] [address] 18 Aug, 2012 [facility] [address] [id number] [address] [place] [address], [place] [address] 17 Aug, 2012 [facility] [address] [id number] [address] [place] [address], [place] [address] 14 Aug, 2013 [facility] [address] [id number] [address] [place] [address], [place] [address] 14 Aug, 2013 [facility] [address] [id number] [address] [place] [address], [place] [address] 01 Aug, 2013 [facility] [address] [id number] [address] [place] [address], [place] [address] 20 Jul, 2013 [facility] [address] [id number] [address] [place] [address], [place] [address] 19 Jul, 2013 [facility] [address] [id number] [address] [place] [address], [place] [address] 18 Jul, 2013 [facility] [address] [id number] [address] [place] [address], [place] [address] 11 Jul, 2013 [facility] [address] [id number] [address] [place] [address], [place] [address] Jul, [facility] [address] [id number] [address] [place] [address], [place] [address] 28 Jun, 2013 [facility] [address] [id number] [address] [place] [address], [place] [address] Jun, [facility] [address] [id number] [address] [place] [address], [place] [address] Jun, [facility] [address] [id number] [address] [place] [address], [place] [address] 15 Jun, 2013 [facility] [address] [id number] [address] [place] [address], [place] [address] 14 Jun, 2013 [facility] [address] [id number] [address] [place] [address], [place] [address] Jun, [facility] [address] [id number] [address] [place] [address], [place] [address] Jun, [facility] [address] [id number] [address] [place] [address], [place] [address] 08 Jun, 2013 [facility] [address] [id number] [address] [place] [address], [place] [address] Jun, [facility] [address] [id number] [address] [place] [address], [place] [address] Jun, [facility] [address] [id number] [address] [place] [address], [place] [address] May, [facility] [address] [id number] [address] [place] [address], [place] [address] May, [facility] [address] [id number] [address] [place] [address], [place] [address] May, [facility] [address] [id number] [address] [place] [address], [place] [address] May, [facility] [address] [id number] [address] [place] [address], [place] [address] May, [facility] [address] [id number] [address] [place] [address], [place] [address] May, [facility] [address] [id number] [address] [place] [address], [place] [address] May, [facility] [address] [id number] [address] [place] [address], [place] [address] May, [facility] [address] [id number] [address] [place] [address], [place] [address] May, [facility] [address] [id number] [address] [place] [address], [place] [address] Apr, [facility] [address] [id number] [address] [place] [address], [place] [address] Apr, [facility] [address] [id number] [address] [place] [address], [place] [address] Apr, [facility] [address] [id number] [address] [place] [address], [place] [address] Apr, [facility] [address] [id number] [address] [place] [address], [place] [address] Apr, [facility] [address] [id number] [address] [place] [address], [place] [address] Apr, [facility] [address] [id number] [address] [place] [address], [place] [address] Apr, [facility] [address] [id number] [address] [place] [address], [place] [address] March, [facility] [address] [id number] [address] [place] [address], [place] [address] Feb, [facility] [address] [id number] [address] [place] [address], [place] [address] Feb, [facility] [address] [id number] [address] [place] [address], [place] [address] Feb, [facility] [address] [id number] [address] [place] [address], [place] [address] Jan, [facility] [address] [id number] [address] [place] [address], [place] [address] Jan, [facility] [address] [id number] [address] [place] [address], [place] [address] Jan, [facility] [address] [id number] [address] [place] [address], [place] [address] Jan, [facility] [address] [id number] [address] [place] [address], [place] [address] Jan, [facility] [address] [id number] [address] [place] [address], [place] [address] Jan, [facility] [address] [id number] [address] [place] [address], [place] [address] Jan, [facility] [address] [id number] [address] [place] [address], [place] [address] Jan, [facility] [address] [id number] [address] [place] [address], [place] [address] Dec, [facility] [address] [id number] [address] [place] [address], [place] [address] 25 Dec, 2012 [facility] [address] [id number] [address] [place] [address], [place] [address] 13 Dec, 2012 [facility] [address] [id number] [address] [place] [address], [place] [address] 11 Dec, 2012 [facility] [address] [id number] [address] [place] [address], [place] [address] 07 Dec, 2012 [facility] [address] [id number] [address] [place] [address], [place] [address] 06 Dec, 2012 [facility] [address] [id number] [address] [place] [address], [place] [address] 05 Dec, 2012 [facility] [address] [id number] [address] [place] [address], [place] [address] Nov, [facility] [address] [id number] [address] [place] [address], [place] [address] 24 Nov, 2012 [facility] [address] [id number] [address] [place] [address], [place] [address] Nov, [facility] [address] [id number] [address] [place] [address], [place] [address] Nov, [facility] [address] [id number] [address] [place] [address], [place] [address] Nov, [facility] [address] [id number] [address] [place] [address], [place] [address] Nov, [facility] [address] [id number] [address] [place] [address], [place] [address] Nov, [facility] [address] [id number] [address] [place] [address], [place] [address] Oct, [facility] [address] [id number] [address] [place] [address], [place] [address] Oct, [facility] [address] [id number] [address] [place] [address], [place] [address] Oct, [facility] [address] [id number] [address] [place] [address], [place] [address] Oct, [facility] [address] [id number] [address] [place] [address], [place] [address] Oct, [facility] [address] [id number] [address] [place] [address], [place] [address] Oct, [facility] [address] [id number] [address] [place] [address], [place] [address] Oct, [facility] [address] [id number] [address] [place] [address], [place] [address] Oct, [facility] [address] [id number] [address] [place] [address], [place] [address] Oct, [facility] [address] [id number] [address] [place] [address], [place] [address] Oct, [facility] [address] [id number] [address] [place] [address], [place] [address] Oct, [facility] [address] [id number] [address] [place] [address], [place] [address] Oct, [facility] [address] [id number] [address] [place] [address], [place] [address] Sep, [facility] [address] [id number] [address] [place] [address], [place] [address] Sep, [facility] [address] [id number] [address] [place] [address], [place] [address] Sep, [facility] [address] [id number] [address] [place] [address], [place] [address] Sep, [facility] [address] [id number] [address] [place] [address], [place] [address] Sep, [facility] [address] [id number] [address] [place] [address], [place] [address] Sep, [facility] [address] [id number] [address] [place] [address] Sep, [facility] [address] [id number] [address] [place] [address], [place] [address] Sep, [facility] [address] [id number] [address] [place] [address], [place] [address] Sep, [facility] [address] [id number] [address] [place] [address] Sep, [facility] [address] [id number] [address] [place] [address] Sep, [facility] [address] [id number] [address] [place] [address], [place] [address] Aug, [facility] [address] [id number] [address] [place] [address] Aug, [facility] [address] [id number] [address] [place] [address], [place] [address] Aug, [facility] [address] [id number] [address] [place] [address] Aug, [facility] [address] [id number] [address] [place] [address] Aug, [facility] [address] [id number] [address] [place] [address] Aug, [facility] [address] [id number] [address] [place] [address] Aug, [facility] [address] [id number] [address] [place] [address] Aug, [facility] [address] [id number] [address] [place] [address], [place] [address] Aug, [facility] [address] [id number] [address] [place] [address] Aug, [facility] [address] [id number] [address] [place] [address] Jul, [facility] [address] [id number] [address] [place] [address], [place] [address] 20 Jul, 2012 [facility] [address] [id number] [address] [place] [address], [place] [address] 10 Jul, 2012 [facility] [address] [id number] [address] [place] [address], [place] [address] Jul, [facility] [address] [id number] [address] [place] [address], [place] [address] 30 Jun, 2012 [facility] [address] [id number] [address] [place] [address], [place] [address] Jun, [facility] [address] [id number] [address] [place] [address], [place] [address] Jun, [facility] [address] [id number] [address] [place] [address], [place] [address] Jun, [facility] [address] [id number] [address] [place] [address], [place] [address] Jun, [facility] [address] [id number] [address] [place] [address], [place] [address] Jun, [facility] [address] [id number] [address] [place] [address], [place] [address] Jun, [facility] [address] [id number] [address] [place] [address], [place] [address] May, [facility] [address] [id number] [address] [place] [address], [place] [address] May, [facility] [address] [id number] [address] [place] [address], [place] [address] May, [facility] [address] [id number] [address] [place] [address], [place] [address] May, [facility] [address] [id number] [address] [place] [address], [place] [address] May, [facility] [address] [id number] [address] [place] [address], [place] [address] Apr, [facility] [address] [id number] [address] [place] [address], [place] [address] Apr, [facility] [address] [id number] [address] [place] [address], [place] [address] Apr, [facility] [address] [id number] [address] [place] [address], [place] [address] Apr, [facility] [address] [id number] [address] [place] [address], [place] [address] Apr, [facility] [address] [id number] [address] [place] [address], [place] [address] March, [facility] [address] [id number] [address] [place] [address], [place] [address] March, [facility] [address] [id number] [address] [place] [address], [place] [address] March, [facility] [address] [id number] [address] [place] [address], [place] [address] March, [facility] [address] [id number] [address] [place] [address], [place] [address] March, [facility] [address] [id number] [address] [place] [address], [place] [address] March, [facility] [address] [id number] [address] [place] [address], [place] [address] March, [facility] [address] [id number] [address] [place] [address], [place] [address] March, [facility] [address] [id number] [address] [place] [address], [place] [address] March, [facility] [address] [id number] [address] [place] [address], [place] [address] March, [facility] [address] [id number] [address] [place] [address], [place] [address] Feb, [facility] [address] [id number] [address] [place] [address], [place] [address] 27 Feb, 2012 [facility] [address] [id number] [address] [place] [address], [place] [address] 26 Feb, 2012 [facility] [address] [id number] [address] [place] [address], [place] [address] Feb, [facility] [address] [id number] [address] [place] [address], [place] [address] Feb, [facility] [address] [id number] [address] [place] [address], [place] [address] Feb, [facility] [address] [id number] [address] [place] [address], [place] [address] Feb, [facility] [address] [id number] [address] [place] [address], [place] [address] Feb, [facility] [address] [id number] [address] [place] [address], [place] [address] Feb, [facility] [address] [id number] [address] [place] [address], [place] [address] Jan, [facility] [address] [id number] [address] [place] [address], [place] [address] Jan, [facility] [address] [id number] [address] [place] [address], [place] [address] Jan, [facility] [address] [id number] [address] [place] [address], [place] [address] Jan, [facility] [address] [id number] [address] [place] [address], [place] [address] Dec, [facility] [address] [id number] [address] [place] [address], [place] [address] Dec, [facility] [address] [id number] [address] [place] [address], [place] [address] Nov, [facility] [address] [id number] [address] [place] [address], [place] [address] Nov, [facility] [address] [id number] [address] [place] [address] Nov, [facility] [address] [id number] [address] [place] [address] Nov, [facility] [address] [id number] [address] [place] [address] Nov, [facility] [address] [id number] [address] [place] [address] Oct, [facility] [address] [id number] [address] [place] [address] Oct, [facility] [address] [id number] [address] [place] [address] Oct, [facility] [address] [id number] [address] [place] [address] Oct, [facility] [address] [id number] [address] [place] [address] Oct, [facility] [address] [id number] [address] [place] [id number] Oct, [facility] [address] [id number] [address] [place] [phone] Oct, [facility] [address] [id number] [address] [place] [id number] Oct, [facility] [address] [id number] [address] [place] [phone] Sep, IMMUNIZATIONS No Known Immunizations SOCIAL HISTORY Never Assessed REASON FOR VISIT PLAN OF CARE VITAL SIGNS MEDICATIONS Unknown Medications RESULTS No Results PROCEDURES No Known procedures INSTRUCTIONS MEDICATIONS ADMINISTERED No Known Medications MEDICAL (GENERAL) HISTORY Type Description Date Medical History aortic abdominal aneurysm moderate 04/06 18 Medical History illiac aneurysm 03/2018 Surgical History No Surgical history information Hospitalization History [facility], [place], operated by [facility]- Urosepsis, ab d pain and fever, discharged 11/27/2017 11/26/2017 Hospitalization History [facility] [place]- Went Unrepsonsive, Hit head 2017 Hospitalization History [facility] [place]- Back Pain 8
--- OUTSIDE RECORDS SUMMARY | 2020-06-18 16:03 | XMS REPORT ---
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 Name Role Phone GUSTAVO GOLDBERG Unavailable PROBLEMS Type Condition ICD9-CM Code LXD14-FZ Code Onset Dates Condition S tatus SNOMED Code Problem Coronary artery disease I25.10 Active 32411465 Problem Hypertension I10 Active 5333696 3 Problem Other chronic pain G89.29 Active 8 7365576 Problem Hyperlipidemia E78.5 Active 23648 004 Problem Type 2 diabetes mellitus wit hout complication, without long-term current use of insulin E11.9 Active 643534329 Problem Low back pain M54.5 Active 739032 009 Problem Pharyngeal dysphagia R13.13 Active 21280151492097 Problem Anxiety F41.9 Active 44757419 Problem Peripheral vascular disease I73.9 Ac tive 086777385 Problem Suprapubic catheter Z93.59 Active 358748442 Problem Reactive depression F32.9 Active 62306375 Problem Neurogenic bladder N31.9 Active 3 66764259 Problem Ventral hernia without obstruction or gangrene K43 .9 Active 305431908 Problem Insomnia G47.00 Active 573220876 Problem Paroxysmal atrial fibrillation I48.0 Active 269992733 Problem Postmenopausal atrophic vaginitis N95.2 Active 11856959 Problem Encounter for suprapubic catheter care Z43.5 Active [id number] ALLERGIES No Information ENCOUNTERS Encounter Location Date Diagnosis [facility] [address] [id number] [address] [place] [id number] Jun, [facility] [address] [id number] [address] [place] [address] Jun, Strain of right shoulder, scherer bsequent encounter S46.911D [facility] [address] [id number] [address] [place] [address] Jun, Strain of right shoulder, scherer bsequent encounter S46.911D [facility] [address] [id number] [address] [place] [address] Jun, Anxiety F41.9 Via [facility] [address] [place] [id number] Jun, Neurogenic bladder N31.9 and Anxiety F41 .9 Via [facility] [address] [place] [id number] May, Anxiety F41.9 [place] [facility] [address] [id number] [address] [place] [address] May, Dysuria R30.0 [place] [facility] [address] [id number] [address] [place] [address] May, Strain of right shoulder, scherer bsequent encounter S46.911D and Anxiety F41.9 [place] [address] [id number] [address] [place] [address] Apr, Via [facility] [address] [place] [id number] Apr, Strain of right shoulder, subsequent enc ounter S46.911D [place] [address] [id number] [address] [place] [address] 14 Apr, 2019 Strain of right shoulder, scherer bsequent encounter S46.911D and Anxiety F41.9 Via [facility] [address] [place] [id number] 13 Apr, 2019 Type 2 diabetes mellitus without complic ation, without long-term current use of insulin E11.9 and Neurogenic bladder N31.9 [facility] [address] [place] [id number] 11 Apr, 2019 Strain of right shoulder, subsequent enc ounter S46.911D ; History of GI bleed Z87.19 ; Neurogenic bladder N31.9 and Reactive depression F32.9 [place] [address] [id number] [address] [place] [phone] 10 Apr, 2019 Acute pain of left shoulder M25.512 [facility] [address] [id number] [address] [place] [address] Apr, [facility] [address] [id number] [address] [place] [address] Apr, Anxiety F41.9 and 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 [address] [place] [id number] March, Gastrointestinal hemorrhage associated w ith acute gastritis K29.01 [facility] [address] [id number] [address] [place] [id number] March, Via [facility] [employer] [address] [place] [id number] March, Bronchitis J40 [facility] [address] [id number] [address] [place] [phone] March, Cough R05 [facility] [address] [id number] [address] [place] [address] March, Other chronic pain G89.29 [facility] [address] [id number] [address] [place] [address] March, Anxiety F41.9 [facility] [address] [id number] [address] [place] [phone] March, [facility] [address] [id number] [address] [place] [id number] Feb, Other chronic pain G89.29 [facility] [address] [id number] [address] [place] [address] Feb, Anxiety F41.9 [facility] [address] [id number] [address] [place] [address] Feb, Other chronic pain G89.29 Via [facility] [address] [place] [id number] Feb, Neurogenic bladder N31.9 and Suprapubic catheter Z93.59 [facility] [address] [id number] [address] [place] [address] Jan, Anxiety F41.9 [facility] [address] [id number] [address] [place] [address] Dec, Anxiety F41.9 [facility] [address] [id number] [address] [place] [phone] Dec, Other chronic pain G89.29 an d Anxiety F41.9 [facility] [address] [id number] [address] [place] [address] Dec, Via [employer] [address] [place] [id number] Dec, Neurogenic bladder N31.9 and Suprapubic catheter Z93.59 [facility] [address] [id number] [address] [place] [address] Nov, Other chronic pain G89.29 an d Anxiety F41.9 [facility] [address] [id number] [address] [place] [address] Nov, Via [employer] [address] [place] [id number] Nov, Suprapubic catheter Z93.59 [facility] [address] [id number] [address] [place] [address] Oct, Other chronic pain G89.29 an d Anxiety F41.9 [facility] [address] [id number] [address] [place] [phone] Oct, [facility] [address] [id number] [address] [place] [address] Oct, Suprapubic catheter Z93.59 [facility] [address] [facility] [id number] [address] [place] [address] Oct, Via [employer] [facility] [address] [place] [id number] Oct, [facility] [address] [id number] [address] [place] [address] Oct, Anxiety F41.9 [facility] [address] [id number] [address] [place] [address] Oct, Anxiety F41.9 Via [facility] [address] [place] [id number] Oct, Other chronic pain G89.29 [facility] [address] [id number] [address] [place] [id number] Sep, Other chronic pain G89.29 Via [employer] [address] [place] [id number] Sep, Suprapubic catheter Z93.59 and Cervicalg ia M54.2 [facility] [address] [id number] [address] [place] [address] Sep, [facility] [address] [id number] [address] [place] [address] Sep, [facility] [address] [id number] [address] [place] [address] Sep, Via [facility] [employer] [facility] [address] [place] [id number] Aug, Cystitis N30.90 [facility] [address] [id number] [address] [place] [address] Aug, [facility] [address] [id number] [address] [place] [address] Aug, Other chronic pain G89.29 [facility] [address] [id number] [address] [place] [address] Aug, Via [facility] [employer] [address] [place] [id number] Aug, Encounter for suprapubic catheter care Z 43.5 [facility] [address] [id number] [address] [place] [address] Jul, Via [facility] [employer] [address] [place] [id number] Jul, [facility] [address] [id number] [address] [place] [phone] 11 Jul, 2018 Other chronic pain G89.29 [facility] [address] [id number] [address] [place] [id number] Jul, [facility] [address] [id number] [address] [place] [address] Jul, [facility] [employer] [address] [place] [id number] Jun, Postmenopausal atrophic vaginitis N95.2 [facility] [address] [id number] [address] [place] [address] Jun, Other chronic pain G89.29 [facility] [address] [id number] [address] [place] [address] Jun, Via [employer] [address] [place] [id number] May, Anxiety F41.9 ; Type 2 diabetes mellitus without complication, without long-term current use of insulin E11.9 ; Hypertension I10 ; Low back pain M54.5 ; Paroxysmal atrial fibrillation I48.0 and 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 [facility] [address] [id number] [address] [place] [address] May, Other chronic pain G89.29 Via [employer] [address] [place] [id number] May, Low back pain M54.5 [facility] [address] [id number] [address] [place] [address] May, [facility] [address] [id number] [address] [place] [address] Apr, Other chronic pain G89.29 [facility] [address] [id number] [address] [place] [address] Apr, [facility] [address] [id number] [address] [place] [address] Apr, Via [employer] [address] [place] [id number] 19 Apr, 2018 Closed compression fracture of L3 lumbar vertebra with routine healing, subsequent encounter S32.030D [facility] [employer] [address] [place] [id number] 14 Apr, 2018 Low back pain M54.5 Via [employer] [address] [place] [id number] 12 Apr, 2018 Coccydynia M53.3 [facility] [address] [id number] [address] [place] [address] March, [facility] [address] [id number] [address] [place] [address] March, Other chronic pain G89.29 [facility] [address] [id number] [address] [place] [id number] March, [facility] [address] [id number] [address] [place] [address] March, [facility] [address] [id number] [address] [place] [address] Feb, [facility] [address] [id number] [address] [place] [address] Feb, Other chronic pain G89.29 Via [employer] [address] [place] [id number] Feb, Other chronic pain G89.29 and Anxiety F4 1.9 [facility] [address] [id number] [address] [place] [address] Feb, [facility] [address] [id number] [address] [place] [address] Jan, [facility] [address] [id number] [address] [place] [phone] Jan, [facility] [address] [id number] [address] [place] [address] Jan, [facility] [address] [id number] [address] [place] [address] Jan, [facility] [address] [facility] [id number] [address] [place] [phone] Dec, Via [employer] [address] [place] [id number] Dec, Peripheral vascular disease I73.9 ; 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 ; Other chronic pain G89.29 ; Anxiety F41.9 ; Reactive depression F32.9 ; Insomnia G47.00 and Type 2 diabetes mellitus without complication, without long-term current use of insulin E11.9 [facility] [place] [address] [place] [address] [id number] [place] [address] Nov, [place] [address] [id number] [place] [facility] [place] [id number] Nov, Anxiety F41.9 [place] [address] [facility] [id number] [address] [place] [address] Nov, [facility] [address] [id number] [place] [id number] Nov, Anxiety F41.9 [facility] [employer] [address] [place] [id number] Nov, Status post surgery Z98.890 ; Confused R 41.0 ; Anxiety F41.9 and Other chronic pain G89.29 [place] [address] [id number] [place] [id number] Nov, Other chronic pain G89.29 [facility] [address] [facility] [id number] [address] [place] [phone] Oct, [place] [address] [id number] [place] [id number] Oct, Other chronic pain G89.29 [facility] [address] [facility] [id number] [address] [place] [phone] Oct, Anxiety F41.9 [place] [address] [id number] [place] [id number] Sep, Other chronic pain G89.29 [facility] [address] [id number] [place] [facility] [place] [id number] Sep, Via [employer] [address] [place] [id number] Aug, Dysuria R30.0 and Anxiety F41.9 [facility] [address] [id number] [address] [place] [address] Aug, [facility] [address] [id number] [place] [id number] Aug, Other chronic pain G89.29 [facility] [address] [id number] [address] [place] [address] Jul, Other chronic pain G89.29 [facility] [address] [id number] [place] [id number] Jun, [facility] [address] [id number] [place] [address] Jun, Other chronic pain G89.29 [facility] [address] [id number] [address] [place] [address] Jun, [facility] [address] [id number] [address] [place] [address] May, Other chronic pain G89.29 [facility] [address] [id number] [address] [place] [address] Apr, Other chronic pain G89.29 [facility] [employer] [address] [place] [id number] Apr, Reactive depression F32.9 and Pharyngeal dysphagia R13.13 [facility] [address] [id number] [address] [place] [address] Apr, Urinary tract infection with out hematuria, site unspecified N39.0 [facility] [address] [id number] [address] [place] [address] March, Other chronic pain G89.29 [facility] [address] [facility] [id number] [address] [place] [phone] Feb, Other chronic pain G89.29 [facility] [address] [facility] [id number] [address] [place] [phone] Feb, [facility] [address] [id number] [place] [id number] Feb, Via [facility] [employer] [address] [place] [address] Feb, Dysuria R30.0 and Ventral hernia without obstruction or gangrene K43.9 [facility] [address] [facility] [id number] [address] [place] [address] Jan, Other chronic pain G89.29 [facility] [address] [id number] [place] [id number] Dec, Other chronic pain G89.29 [facility] [address] [facility] [id number] [address] [place] [address] Nov, Other chronic pain G89.29 Via [employer] [address] [place] [id number] Nov, Lymphadenitis I88.9 [facility] [address] [facility] [id number] [address] [place] [address] Nov, Other chronic pain G89.29 [facility] [address] [facility] [id number] [address] [place] [address] Nov, [facility] [address] [id number] [id number] Nov, Other chronic pain G89.29 Via [employer] [address] [place] [address] Oct, Low back pain M54.5 ; Hypertension I10 a nd Type 2 diabetes mellitus without complication, without long-term current use of insulin E11.9 [facility] [address] [facility] [id number] [address] [place] [address] Oct, [facility] [address] [id number] [address] [place] [address] Oct, [facility] [address] [id number] [address] [place] [id number] Oct, [facility] [address] [id number] [address] [place] [address] Oct, [facility] [address] [id number] [address] [place] [phone] Sep, [facility] [address] [id number] [address] [place] [phone] Sep, [facility] [address] [id number] [address] [place] [address] Aug, Other chronic pain G89.29 [facility] [address] [id number] [address] [place] [address] Jul, [facility] [address] [id number] [address] [place] [phone] Jul, [facility] [address] [id number] [address] [place] [address] Jul, [facility] [address] [id number] [address] [place] [address] Jun, [facility] [address] [id number] [address] [place] [address] Jun, Via [facility] [address] [place] [id number] Jun, Low back pain M54.5 ; Other chronic pain G89.29 and Coronary artery disease I25.10 [facility] [address] [id number] [address] [place] [id number] Jun, [facility] [address] [id number] [address] [place] [address] May, [facility] [address] [id number] [address] [place] [address] 15 May, 2016 [facility] [address] [id number] [address] [place] [address] 13 May, 2016 Other chronic pain G89.29 [facility] [address] [id number] [address] [place] [phone] 13 May, 2016 [facility] [address] [id number] [address] [place] [id number] 28 Apr, 2016 [facility] [address] [id number] [address] [place] [address] 17 Apr, 2016 Acute cystitis without hemat uria N30.00 [facility] [address] [id number] [address] [place] [address] 16 Apr, 2016 Acute cystitis without hemat uria N30.00 ; Coronary artery disease I25.10 ; Low back pain M54.5 and Other chronic pain G89.29 [facility] [address] [id number] [address] [place] [address] 13 Apr, 2016 Other chronic pain G89.29 [facility] [address] [id number] [address] [place] [address] March, Other chronic pain G89.29 [facility] [address] [id number] [address] [place] [id number] 18 Feb, 2016 [facility] [address] [id number] [address] [place] [id number] 15 Feb, 2016 Arthritis M19.90 [facility] [address] [id number] [address] [place] [id number] Feb, [facility] [address] [id number] [address] [place] [id number] 30 Jan, 2016 [facility] [address] [id number] [address] [place] [phone] Jan, [facility] [address] [id number] [address] [place] [id number] Jan, Other chronic pain G89.29 [facility] [address] [id number] [address] [place] [phone] Jan, Hypertension I10 ; Coronary artery disease I25.10 and Insomnia G47.00 [facility] [address] [id number] [address] [place] [phone] Jan, [facility] [address] [id number] [address] [place] [address] Dec, Right hip pain M25.551 [facility] [address] [id number] [address] [place] [id number] Dec, [facility] [address] [id number] [address] [place] [id number] Dec, [facility] [address] [id number] [address] [place] [phone] Dec, [facility] [address] [id number] [address] [place] [address] Dec, Other chronic pain G89.29 [facility] [address] [id number] [address] [place] [id number] Dec, [facility] [address] [id number] [address] [place] [id number] Nov, [facility] [address] [id number] [address] [place] [id number] Nov, Other chronic pain G89.29 [facility] [address] [id number] [address] [place] [id number] Nov, Right hip pain M25.551 and C oronary artery disease I25.10 [facility] [address] [id number] [address] [place] [id number] Nov, Other chronic pain G89.29 [facility] [address] [id number] [address] [place] [id number] Oct, [facility] [address] [id number] [address] [place] [id number] Oct, [facility] [address] [id number] [address] [place] [id number] Sep, [facility] [address] [id number] [address] [place] [id number] Sep, [facility] [address] [id number] [address] [place] [id number] Aug, [facility] [address] [id number] [address] [place] [id number] Aug, Hypertension I10 ; Coronary artery disease I25.10 and Arthritis M19.90 [facility] [address] [id number] [address] [place] [id number] Jun, [facility] [address] [id number] [address] [place] [id number] Jun, Essential hypertension, jayson gn 401.1 ; Other chronic pain 338.29 and Chronic airway obstruction, not elsewhere classified 496 [facility] [address] [id number] [address] [place] [id number] Jun, [facility] [address] [id number] [address] [place] [id number] Jun, [facility] [address] [id number] [address] [place] [phone] Jun, [facility] [address] [id number] [address] [place] [id number] May, [facility] [address] [id number] [address] [place] [phone] May, [facility] [address] [id number] [address] [place] [id number] Apr, [facility] [address] [id number] [address] [place] [phone] Apr, [facility] [address] [id number] [address] [place] [id number] Apr, [facility] [address] [id number] [address] [place] [address], [place] [address] March, [facility] [address] [id number] [address] [place] [id number] March, [facility] [address] [id number] [address] [place] [address], [place] [address] March, [facility] [address] [id number] [address] [place] [id number] March, [facility] [address] [id number] [address] [place] [address], [place] [address] March, Sialadenitis 527.2 [facility] [address] [id number] [address] [place] [address], [place] [address] Feb, [facility] [address] [id number] [address] [place] [address], [place] [address] Feb, [facility] [address] [id number] [address] [place] [phone] Feb, [facility] [address] [id number] [address] [place] [address], [place] [address] Feb, [facility] [address] [id number] 66 [place] [address], [place] [address] Feb, [facility] [address] [id number] [address] [place] [address], [place] [address] Jan, [facility] [address] [id number] [address] [place] [address] Jan, [facility] [address] [id number] [address] [place] [address], [place] [address] Jan, [facility] [address] [id number] [address] [place] [address], [place] [address] Jan, [facility] [address] [id number] [address] [place] [id number] 06 Jan, 2015 [facility] [address] [id number] [address] [place] [address], [place] [address] Jan, [facility] [address] [id number] [address] [place] [address], [place] [address] Dec, [facility] [address] [id number] [address] [place] [address], [place] [address] Dec, [facility] [address] [id number] [address] [place] [address], [place] [address] Dec, [facility] [address] [id number] [address] [place] [address], [place] [address] Dec, [facility] [address] [id number] [address] [place] [address], [place] [address] Dec, [facility] [address] [id number] [address] [place] [address], [place] [address] Dec, [facility] [address] [id number] [address] [place] [address], [place] [address] Nov, [facility] [address] [id number] [address] [place] [address], [place] [address] Nov, [facility] [address] [id number] [address] [place] [address], [place] [address] Nov, [facility] [address] [id number] [address] [place] [address], [place] [address] Nov, [facility] [address] [id number] [address] [place] [address], [place] [address] Nov, [facility] [address] [id number] [address] [place] [address], [place] [address] Nov, [facility] [address] [id number] [address] [place] [address], [place] [address] Nov, [facility] [address] [id number] [address] [place] [address], [place] [address] Nov, [facility] [address] [id number] [address] [place] [address], [place] [address] 16 Nov, 2014 [facility] [address] [id number] [address] [place] [address], [place] [address] Nov, [facility] [address] [id number] [address] [place] [address], [place] [address] Nov, [facility] [address] [id number] [address] [place] [address], [place] [address] Nov, [facility] [address] [id number] [address] [place] [address], [place] [address] Nov, [facility] [address] [id number] [address] [place] [address], [place] [address] Nov, [facility] [address] [id number] [address] [place] [address], [place] [address] Oct, [facility] [address] [id number] [address] [place] [address], [place] [address] Oct, [facility] [address] [id number] [address] [place] [address], [place] [address] Oct, [facility] [address] [id number] [address] [place] [address], [place] [address] 18 Oct, 2014 [facility] [address] [id number] [address] [place] [address], [place] [address] 18 Oct, 2014 [facility] [address] [id number] [address] [place] [address], [place] [address] 17 Oct, 2014 [facility] [address] [id number] [address] [place] [address], [place] [address] 17 Oct, 2014 [facility] [address] [id number] [address] [place] [address], [place] [address] 10 Oct, 2014 [facility] [address] [id number] [address] [place] [address], [place] [address] Oct, [facility] [address] [id number] [address] [place] [address], [place] [address] Sep, [facility] [address] [id number] [address] [place] [address], [place] [address] Sep, [facility] [address] [id number] [address] [place] [address], [place] [address] Sep, [facility] [address] [id number] [address] [place] [address], [place] [address] Sep, [facility] [address] [id number] [address] [place] [address], [place] [address] Sep, [facility] [address] [id number] [address] [place] [address], [place] [address] Sep, [facility] [address] [id number] [address] [place] [address], [place] [address] Sep, [facility] [address] [id number] [address] [place] [address], [place] [address] Sep, [facility] [address] [id number] [address] [place] [address], [place] [address] Sep, [facility] [address] [id number] [address] [place] [address], [place] [address] Sep, [facility] [address] [id number] [address] [place] [address], [place] [address] Sep, [facility] [address] [id number] [address] [place] [address], [place] [address] Sep, [facility] [address] [id number] [address] [place] [address], [place] [address] Aug, [facility] [address] [id number] [address] [place] [address], [place] [address] Aug, [facility] [address] [id number] [address] [place] [address], [place] [address] Aug, [facility] [address] [id number] [address] [place] [address], [place] [address] Aug, [facility] [address] [id number] [address] [place] [address], [place] [address] 28 Aug, 2014 [facility] [address] [id number] [address] [place] [address], [place] [address] 28 Aug, 2014 [facility] [address] [id number] [address] [place] [address], [place] [address] 17 Aug, 2014 [facility] [address] [id number] [address] [place] [address], [place] [address] 17 Aug, 2014 [facility] [address] [id number] [address] [place] [address], [place] [address] 30 Jul, 2013 [facility] [address] [id number] [address] [place] [address], [place] [address] 30 Jul, 2013 [facility] [address] [id number] [address] [place] [address], [place] [address] 30 Jul, 2013 [facility] [address] [id number] [address] [place] [address], [place] [address] 30 Jul, 2013 [facility] [address] [id number] [address] [place] [address], [place] [address] 25 Jul, 2013 [facility] [address] [id number] [address] [place] [address], [place] [address] 25 Jul, 2013 [facility] [address] [id number] [address] [place] [address], [place] [address] 15 Jul, 2014 [facility] [address] [id number] [address] [place] [address], [place] [address] 15 Jul, 2014 [facility] [address] [id number] [address] [place] [address], [place] [address] 11 Jul, 2013 [facility] [address] [id number] [address] [place] [address], [place] [address] Jul, [facility] [address] [id number] [address] [place] [address], [place] [address] Jun, [facility] [address] [id number] [address] [place] [address], [place] [address] Jun, [facility] [address] [id number] [facility] [place] [address] Jun, [facility] [address] [id number] [facility] [place] [address] Jun, [facility] [address] [id number] [facility] [place] [address] Jun, [facility] [address] [id number] [address] [place] [address], [place] [address] Jun, [facility] [address] [id number] [address] [place] [address], [place] [address] Jun, [facility] [address] [id number] [address] [place] [address], [place] [address] Jun, [facility] [address] [id number] [address] [place] [address], [place] [address] Jun, [facility] [address] [id number] [address] [place] [address], [place] [address] Jun, [facility] [address] [id number] [address] [place] [address], [place] [address] Jun, [facility] [address] [id number] [address] [place] [address], [place] [address] Jun, [facility] [address] [id number] [address] [place] [address], [place] [address] Jun, [facility] [address] [id number] [address] [place] [address], [place] [address] Jun, [facility] [address] [id number] [address] [place] [address], [place] [address] Jun, [facility] [address] [id number] [address] [place] [address], [place] [address] Jun, [facility] [address] [id number] [address] [place] [address], [place] [address] Jun, [facility] [address] [id number] [address] [place] [address], [place] [address] Jun, [facility] [address] [id number] [address] [place] [address], [place] [address] Jun, [facility] [address] [id number] [address] [place] [address], [place] [address] Jun, [facility] [address] [id number] [address] [place] [address], [place] [address] Jun, [facility] [address] [id number] [address] [place] [address], [place] [address] Jun, [facility] [address] [id number] [address] [place] [address], [place] [address] May, [facility] [address] [id number] [address] [place] [address], [place] [address] May, [facility] [address] [id number] [address] [place] [address], [place] [address] May, [facility] [address] [id number] [address] [place] [address], [place] [address] May, [facility] [address] [id number] [address] [place] [address], [place] [address] May, [facility] [address] [id number] [address] [place] [address], [place] [address] May, [facility] [address] [id number] [address] [place] [address], [place] [address] May, [facility] [address] [id number] [address] [place] [address], [place] [address] May, [facility] [address] [id number] [address] [place] [address], [place] [address] May, [facility] [address] [id number] [address] [place] [address], [place] [address] May, [facility] [address] [id number] [address] [place] [address], [place] [address] May, [facility] [address] [id number] [address] [place] [address], [place] [address] May, [facility] [address] [id number] [facility] [place] [address] May, [facility] [address] [id number] [address] [place] [address], [place] [address] Apr, [facility] [address] [id number] [address] [place] [address], [place] [address] Apr, [facility] [address] [id number] [address] [place] [address], [place] [address] Apr, [facility] [address] [id number] [address] [place] [address], [place] [address] Apr, [facility] [address] [id number] [address] [place] [address], [place] [address] Apr, [facility] [address] [id number] [address] [place] [address], [place] [address] Apr, [facility] [address] [id number] [address] [place] [address], [place] [address] Apr, [facility] [address] [id number] [address] [place] [address], [place] [address] Apr, [facility] [address] [id number] [address] [place] [address], [place] [address] Apr, [facility] [address] [id number] [address] [place] [address], [place] [address] March, [facility] [address] [id number] [address] [place] [address], [place] [address] March, [facility] [address] [id number] [address] [place] [address], [place] [address] March, [facility] [address] [id number] [address] [place] [address], [place] [address] March, [facility] [address] [id number] [address] [place] [address], [place] [address] March, [facility] [address] [id number] [address] [place] [address], [place] [address] March, [facility] [address] [id number] [address] [place] [address], [place] [address] March, [facility] [address] [id number] [address] [place] [address], [place] [address] March, [facility] [address] [id number] [address] [place] [address], [place] [address] March, [facility] [address] [id number] [address] [place] [address], [place] [address] March, [facility] [address] [id number] [address] [place] [address], [place] [address] March, [facility] [address] [id number] [address] [place] [address], [place] [address] March, [facility] [address] [id number] [address] [place] [address], [place] [address] March, [facility] [address] [id number] [address] [place] [address], [place] [address] March, [facility] [address] [id number] [address] [place] [address], [place] [address] March, [facility] [address] [id number] [address] [place] [address], [place] [address] March, [facility] [address] [id number] [address] [place] [address], [place] [address] March, [facility] [address] [id number] [address] [place] [address], [place] [address] March, [facility] [address] [id number] [address] [place] [address], [place] [address] March, [facility] [address] [id number] [address] [place] [address], [place] [address] March, [facility] [address] [id number] [address] [place] [address], [place] [address] Feb, [facility] [address] [id number] [facility] [place] [address] Feb, [facility] [address] [id number] [facility] [place] [address] Feb, [facility] [address] [id number] [address] [place] [address], [place] [address] Feb, [facility] [address] [id number] [address] [place] [address], [place] [address] Feb, [facility] [address] [id number] [address] [place] [address], [place] [address] Feb, [facility] [address] [id number] [address] [place] [address], [place] [address] Feb, [facility] [address] [id number] [address] [place] [address], [place] [address] Feb, [facility] [address] [id number] [address] [place] [address], [place] [address] Jan, [facility] [address] [id number] [address] [place] [address], [place] [address] Jan, [facility] [address] [id number] [address] [place] [address], [place] [address] Jan, [facility] [address] [id number] [address] [place] [address], [place] [address] Jan, [facility] [address] [id number] [address] [place] [address], [place] [address] Jan, [facility] [address] [id number] [address] [place] [address], [place] [address] Jan, [facility] [address] [id number] [address] [place] [address], [place] [address] Jan, [facility] [address] [id number] [address] [place] [address], [place] [address] Jan, [facility] [address] [id number] [address] [place] [address], [place] [address] Jan, [facility] [address] [id number] [facility] [place] [address] Jan, [facility] [address] [id number] [facility] [place] [address] Dec, [facility] [address] [id number] [address] [place] [address], [place] [address] Dec, [facility] [address] [id number] [address] [place] [address], [place] [address] Dec, [facility] [address] [id number] [address] [place] [address], [place] [address] Dec, [facility] [address] [id number] [address] [place] [address], [place] [address] Dec, [facility] [address] [id number] [address] [place] [address], [place] [address] Dec, [facility] [address] [id number] [address] [place] [address], [place] [address] Dec, [facility] [address] [id number] [address] [place] [address], [place] [address] Dec, [facility] [address] [id number] [address] [place] [address], [place] [address] Nov, [facility] [address] [id number] [address] [place] [address], [place] [address] Nov, [facility] [address] [id number] [address] [place] [address], [place] [address] Nov, [facility] [address] [id number] [address] [place] [address], [place] [address] Nov, [facility] [address] [id number] [address] [place] [address], [place] [address] Nov, [facility] [address] [id number] [address] [place] [address], [place] [address] Nov, [facility] [address] [id number] [address] [place] [address], [place] [address] Nov, [facility] [address] [id number] [address] [place] [address], [place] [address] Nov, [facility] [address] [id number] [address] [place] [address], [place] [address] Nov, [facility] [address] [id number] [address] [place] [address], [place] [address] Nov, [facility] [address] [id number] [address] [place] [address], [place] [address] Nov, [facility] [address] [id number] [address] [place] [address], [place] [address] Nov, [facility] [address] [id number] [address] [place] [address], [place] [address] Nov, [facility] [address] [id number] [address] [place] [address], [place] [address] Oct, [facility] [address] [id number] [address] [place] [address], [place] [address] Oct, [facility] [address] [id number] [address] [place] [address], [place] [address] Oct, [facility] [address] [id number] [address] [place] [address], [place] [address] Oct, [facility] [address] [id number] [address] [place] [address], [place] [address] Oct, [facility] [address] [id number] [address] [place] [address], [place] [address] Oct, [facility] [address] [id number] [address] [place] [address], [place] [address] Oct, [facility] [address] [id number] [address] [place] [address], [place] [address] Oct, [facility] [address] [id number] [address] [place] [address], [place] [address] 17 Oct, 2013 [facility] [address] [id number] [address] [place] [address], [place] [address] 17 Oct, 2013 [facility] [address] [id number] [address] [place] [address], [place] [address] 03 Oct, 2013 [facility] [address] [id number] [address] [place] [address], [place] [address] 03 Oct, 2013 [facility] [address] [id number] [address] [place] [address], [place] [address] 02 Oct, 2013 [facility] [address] [id number] [address] [place] [address], [place] [address] 02 Oct, 2013 [facility] [address] [id number] [address] [place] [address], [place] [address] 14 Sep, 2013 [facility] [address] [id number] [address] [place] [address], [place] [address] 14 Sep, 2013 [facility] [address] [id number] [address] [place] [address], [place] [address] 05 Sep, 2013 [facility] [address] [id number] [address] [place] [address], [place] [address] 05 Sep, 2013 [facility] [address] [id number] [address] [place] [address], [place] [address] Sep, [facility] [address] [id number] [address] [place] [address], [place] [address] Sep, [facility] [address] [id number] [address] [place] [address], [place] [address] Sep, [facility] [address] [id number] [address] [place] [address], [place] [address] Sep, [facility] [address] [id number] [address] [place] [address], [place] [address] Sep, [facility] [address] [id number] [address] [place] [address], [place] [address] Sep, [facility] [address] [id number] [address] [place] [address], [place] [address] Aug, 2012 [facility] [address] [id number] [address] [place] [address], [place] [address] Aug, [facility] [address] [id number] [address] [place] [address], [place] [address] Aug, [facility] [address] [id number] [address] [place] [address], [place] [address] Aug, [facility] [address] [id number] [address] [place] [address], [place] [address] Aug, [facility] [address] [id number] [address] [place] [address], [place] [address] Aug, [facility] [address] [id number] [address] [place] [address], [place] [address] Aug, [facility] [address] [address] [id number] [address] [place] [address], [place] [address] Aug, [facility] [address] [id number] [address] [place] [address], [place] [address] Aug, [facility] [address] [id number] [address] [place] [address], [place] [address] Aug, [facility] [address] [id number] [address] [place] [address], [place] [address] Aug, [facility] [address] [id number] [address] [place] [address], [place] [address] 18 Aug, 2013 [facility] [address] [id number] [address] [place] [address], [place] [address] 18 Aug, 2013 [facility] [address] [id number] [address] [place] [address], [place] [address] 18 Aug, 2013 [facility] [address] [id number] [address] [place] [address], [place] [address] 17 Aug, 2013 [facility] [address] [id number] [address] [place] [address] 14 Aug, 2013 [facility] [address] [id number] [address] [place] [address], [place] [address] 14 Aug, 2013 [facility] [address] [id number] [address] [place] [address], [place] [address] 01 Aug, 2013 [facility] [address] [id number] [address] [place] [address], [place] [address] 20 Jul, 2013 [facility] [address] [id number] [address] [place] [address], [place] [address] 19 Jul, 2013 [facility] [address] [id number] [address] [place] [address], [place] [address] 18 Jul, 2013 [facility] [address] [id number] [address] [place] [address], [place] [address] 11 Jul, 2013 [facility] [address] [id number] [address] [place] [address], [place] [address] Jul, [facility] [address] [id number] [address] [place] [address], [place] [address] 28 Jun, 2013 [facility] [address] [id number] [address] [place] [address], [place] [address] Jun, [facility] [address] [id number] [address] [place] [address], [place] [address] Jun, [facility] [address] [id number] [address] [place] [address], [place] [address] 15 Jun, 2013 [facility] [address] [id number] [address] [place] [address], [place] [address] 14 Jun, 2013 [facility] [address] [id number] [address] [place] [address], [place] [address] Jun, [facility] [address] [id number] [address] [place] [address], [place] [address] Jun, [facility] [address] [id number] [address] [place] [address], [place] [address] 08 Jun, 2013 [facility] [address] [id number] [address] [place] [address], [place] [address] Jun, [facility] [address] [id number] [address] [place] [address], [place] [address] Jun, [facility] [address] [id number] [address] [place] [address], [place] [address] May, [facility] [address] [id number] [address] [place] [address], [place] [address] May, [facility] [address] [id number] [address] [place] [address], [place] [address] May, [facility] [address] [id number] [address] [place] [address], [place] [address] May, [facility] [address] [id number] [address] [place] [address], [place] [address] May, [facility] [address] [id number] [address] [place] [address], [place] [address] May, [facility] [address] [id number] [address] [place] [address], [place] [address] May, [facility] [address] [id number] [address] [place] [address], [place] [address] May, [facility] [address] [id number] [address] [place] [address], [place] [address] May, [facility] [address] [id number] [address] [place] [address], [place] [address] Apr, [facility] [address] [id number] [address] [place] [address], [place] [address] Apr, [facility] [address] [id number] [address] [place] [address], [place] [address] Apr, [facility] [address] [id number] [address] [place] [address], [place] [address] Apr, [facility] [address] [id number] [address] [place] [address], [place] [address] Apr, [facility] [address] [id number] [address] [place] [address], [place] [address] Apr, [facility] [address] [id number] [address] [place] [address], [place] [address] Apr, [facility] [address] [id number] [address] [place] [address], [place] [address] March, [facility] [address] [id number] [address] [place] [address], [place] [address] Feb, [facility] [address] [id number] [address] [place] [address], [place] [address] Feb, [facility] [address] [id number] [address] [place] [address], [place] [address] Feb, [facility] [address] [id number] [address] [place] [address], [place] [address] Jan, [facility] [address] [id number] [address] [place] [address], [place] [address] Jan, [facility] [address] [id number] [address] [place] [address], [place] [address] Jan, [facility] [address] [id number] [address] [place] [address], [place] [address] 14 Jan, 2013 [facility] [address] [id number] [address] [place] [address], [place] [address] Jan, [facility] [address] [id number] [address] [place] [address], [place] [address] 08 Jan, 2013 [facility] [address] [id number] [address] [place] [address], [place] [address] 07 Jan, 2013 [facility] [address] [id number] [address] [place] [address], [place] [address] 04 Jan, 2013 [facility] [address] [id number] [address] [place] [address], [place] [address] 28 Dec, 2012 [facility] [address] [id number] [address] [place] [address], [place] [address] 25 Dec, 2012 [facility] [address] [id number] [address] [place] [address], [place] [address] 13 Dec, 2012 [facility] [address] [id number] [address] [place] [address], [place] [address] 11 Dec, 2012 [facility] [address] [id number] [address] [place] [address], [place] [address] 07 Dec, 2012 [facility] [address] [id number] [address] [place] [address], [place] [address] 06 Dec, 2012 [facility] [address] [id number] [address] [place] [address], [place] [address] 05 Dec, 2012 [facility] [address] [id number] [address] [place] [address], [place] [address] Nov, [facility] [address] [id number] [address] [place] [address], [place] [address] 24 Nov, 2012 [facility] [address] [id number] [address] [place] [address], [place] [address] 18 Nov, 2012 [facility] [address] [id number] [address] [place] [address], [place] [address] 15 Nov, 2012 [facility] [address] [id number] [address] [place] [address], [place] [address] Nov, [facility] [address] [id number] [address] [place] [address], [place] [address] Nov, [facility] [address] [id number] [address] [place] [address], [place] [address] Nov, [facility] [address] [id number] [address] [place] [address], [place] [address] Oct, [facility] [address] [id number] [address] [place] [address], [place] [address] Oct, [facility] [address] [id number] [address] [place] [address], [place] [address] Oct, [facility] [address] [id number] [address] [place] [address], [place] [address] Oct, [facility] [address] [id number] [address] [place] [address], [place] [address] Oct, [facility] [address] [id number] [address] [place] [address], [place] [address] Oct, [facility] [address] [id number] [address] [place] [address], [place] [address] Oct, [facility] [address] [id number] [address] [place] [address], [place] [address] Oct, [facility] [address] [id number] [address] [place] [address], [place] [address] Oct, [facility] [address] [id number] [address] [place] [address], [place] [address] Oct, [facility] [address] [id number] [address] [place] [address], [place] [address] Oct, [facility] [address] [id number] [address] [place] [address], [place] [address] Oct, [facility] [address] [id number] [address] [place] [address], [place] [address] Sep, [facility] [address] [id number] [address] [place] [address], [place] [address] Sep, [facility] [address] [id number] [address] [place] [address], [place] [address] Sep, [facility] [address] [id number] [address] [place] [address], [place] [address] Sep, [facility] [address] [id number] [address] [place] [address], [place] [address] Sep, [facility] [address] [id number] [address] [place] [address], [place] [address] Sep, [facility] [address] [id number] [address] [place] [address] Sep, [facility] [address] [id number] [address] [place] [address], [place] [address] Sep, [facility] [address] [id number] [address] [place] [address] Sep, [facility] [address] [id number] [address] [place] [address], [place] [address] Sep, [facility] [address] [id number] [address] [place] [address] Sep, [facility] [address] [id number] [address] [place] [address], [place] [address] Aug, [facility] [address] [id number] [address] [place] [address] Aug, [facility] [address] [id number] [address] [place] [address] Aug, [facility] [address] [id number] [address] [place] [address] Aug, [facility] [address] [id number] [address] [place] [address] Aug, [facility] [address] [id number] [address] [place] [address] Aug, [facility] [address] [id number] [address] [place] [address] Aug, [facility] [address] [id number] [address] [place] [address] Aug, [facility] [address] [id number] [address] [place] [address] Aug, [facility] [address] [id number] [address] [place] [address] Aug, [facility] [address] [id number] [address] [place] [address], [place] [address] Jul, [facility] [address] [id number] [facility] [place] [address] 20 Jul, 2012 [facility] [address] [id number] [address] [place] [address], [place] [address] 10 Jul, 2012 [facility] [address] [id number] [address] [place] [address], [place] [address] Jul, [facility] [address] [id number] [address] [place] [address], [place] [address] 30 Jun, 2012 [facility] [address] [id number] [address] [place] [address], [place] [address] Jun, [facility] [address] [id number] [address] [place] [address], [place] [address] Jun, [facility] [address] [id number] [address] [place] [address], [place] [address] Jun, [facility] [address] [id number] [address] [place] [address], [place] [address] Jun, [facility] [address] [id number] [address] [place] [address], [place] [address] Jun, [facility] [address] [id number] [address] [place] [address], [place] [address] Jun, [facility] [address] [id number] [address] [place] [address], [place] [address] May, [facility] [address] [id number] [address] [place] [address], [place] [address] May, [facility] [address] [id number] [address] [place] [address], [place] [address] May, [facility] [address] [id number] [address] [place] [address], [place] [address] May, [facility] [address] [id number] [address] [place] [address], [place] [address] May, [facility] [address] [id number] [address] [place] [address], [place] [address] Apr, [facility] [address] [id number] [address] [place] [address], [place] [address] Apr, [facility] [address] [id number] [address] [place] [address], [place] [address] Apr, [facility] [address] [id number] [address] [place] [address], [place] [address] Apr, [facility] [address] [id number] [address] [place] [address], [place] [address] Apr, [facility] [address] [id number] [address] [place] [address], [place] [address] March, [facility] [address] [id number] [address] [place] [address], [place] [address] March, [facility] [address] [id number] [address] [place] [address], [place] [address] March, [facility] [address] [id number] [address] [place] [address], [place] [address] March, [facility] [address] [id number] [address] [place] [address], [place] [address] March, [facility] [address] [id number] [address] [place] [address], [place] [address] March, [facility] [address] [id number] [address] [place] [address], [place] [address] March, [facility] [address] [id number] [address] [place] [address], [place] [address] March, [facility] [address] [id number] [address] [place] [address], [place] [address] March, [facility] [address] [id number] [address] [place] [address], [place] [address] March, [facility] [address] [id number] [address] [place] [address], [place] [address] Feb, [facility] [address] [id number] [address] [place] [address], [place] [address] 27 Feb, 2012 [facility] [address] [id number] [address] [place] [address], [place] [address] 26 Feb, 2012 [facility] [address] [id number] [address] [place] [address], [place] [address] Feb, [facility] [address] [id number] [address] [place] [address], [place] [address] Feb, [facility] [address] [id number] [address] [place] [address], [place] [address] Feb, [facility] [address] [id number] [address] [place] [address], [place] [address] Feb, [facility] [address] [id number] [address] [place] [address], [place] [address] Feb, [facility] [address] [id number] [address] [place] [address], [place] [address] Feb, [facility] [address] [id number] [address] [place] [address], [place] [address] Jan, [facility] [address] [id number] [address] [place] [address], [place] [address] Jan, [facility] [address] [id number] [address] [place] [address], [place] [address] Jan, [facility] [address] [id number] [address] [place] [address], [place] [address] Jan, [facility] [address] [id number] [address] [place] [address], [place] [address] Dec, [facility] [address] [id number] [address] [place] [address], [place] [address] Dec, [facility] [address] [id number] [address] [place] [address], [place] [address] Nov, [facility] [address] [id number] [address] [place] [address], [place] [address] Nov, [facility] [address] [id number] [address] [place] [id number] Nov, [facility] [address] [id number] [address] [place] [id number] Nov, [facility] [address] [id number] [address] [place] [phone] Nov, [facility] [address] [id number] [address] [place] [id number] Oct, [facility] [address] [id number] [address] [place] [id number] Oct, [facility] [address] [id number] [address] [place] [id number] Oct, [facility] [address] [id number] [address] [place] [phone] Oct, [facility] [address] [id number] [address] [place] [id number] Oct, [facility] [address] [id number] [address] [place] [id number] Oct, [facility] [address] [id number] [address] [place] [phone] Oct, [facility] [address] [id number] [address] [place] [id number] Oct, [facility] [address] [id number] [address] [place] [id number] Sep, IMMUNIZATIONS No Known Immunizations SOCIAL HISTORY [...] fever, discharged 11/27/2017 11/26/2017 Hospitalization History [facility] [place]- Went Unrepsonsive, Hit head 2017 Hospitalization History [facility] [place]- Back Pain 8
--- OUTSIDE RECORDS SUMMARY | 2020-06-18 16:04 | XMS REPORT ---
Author Author Sanjuanita Abdul Doctor Organization [facility] Address Unknown Phone Unavailable Care Team Providers Care Insurance Marketing Specialist Name Role Phone Migration, Doctor Unavailable Unavailable PROBLEMS Type Condition ICD9-CM Code [id number] Code Onset Dates Condition S tatus SNOMED Code Problem Coronary artery disease I25.10 Active 78543097 Problem Hypertension I10 Active 7618701 3 Problem Other chronic pain G89.29 Active 8 9329957 Problem Hyperlipidemia E78.5 Active 77250 004 Problem Type 2 diabetes mellitus wit hout complication, without long-term current use of insulin E11.9 Active 764498089 Problem Low back pain M54.5 Active 170629 009 Problem Pharyngeal dysphagia R13.13 Active [id number] Problem Anxiety F41.9 Active 15518219 Problem Peripheral vascular disease I73.9 Ac tive 036026769 Problem Suprapubic catheter Z93.59 Active 030449008 Problem Reactive depression F32.9 Active 46398021 Problem Neurogenic bladder N31.9 Active 3 01227791 Problem Ventral hernia without obstruction or gangrene K43 .9 Active 807445619 Problem Insomnia G47.00 Active 399821541 Problem Paroxysmal atrial fibrillation I48.0 Active 965554225 Problem Postmenopausal atrophic vaginitis N95.2 Active 44608291 Problem Encounter for suprapubic catheter care Z43.5 Active [id number] ALLERGIES No Information ENCOUNTERS Encounter Location Date Diagnosis [facility] [address] [id number] [address] [place] [address] Jun, [facility] [address] [id number] [address] [place] [address] Jun, Strain of right shoulder, scherer bsequent encounter S46.911D [place] [address] [id number] [address] [place] [address] Jun, Strain of right shoulder, scherer bsequent encounter S46.911D [place] [address] [id number] [address] [place] [address] Jun, Anxiety F41.9 [facility] [address] [place] [id number] Jun, Neurogenic bladder N31.9 and Anxiety F41 .9 [facility] [address] [place] [id number] May, Anxiety F41.9 [place] [address] [id number] [address] [place] [address] May, Dysuria R30.0 [place] [address] [id number] [address] [place] [address] May, Strain of right shoulder, scherer bsequent encounter S46.911D and Anxiety F41.9 [place] [address] [id number] [address] [place] [address] Apr, [facility] [address] [place] [id number] Apr, Strain of right shoulder, subsequent enc ounter S46.911D [place] [address] [id number] [address] [place] [address] Apr, Strain of right shoulder, scherer bsequent encounter S46.911D and Anxiety F41.9 [facility] [address] [place] [id number] 13 Apr, 2019 Type 2 diabetes mellitus without complic ation, without long-term current use of insulin E11.9 and Neurogenic bladder N31.9 [facility] [address] [place] [id number] 11 Apr, 2019 Strain of right shoulder, subsequent enc ounter S46.911D ; History of GI bleed Z87.19 ; Neurogenic bladder N31.9 and Reactive depression F32.9 [place] [address] [id number] [address] [place] [address] 10 Apr, 2019 Acute pain of left shoulder M25.512 [place] [address] [id number] [address] [place] [address] Apr, [facility] [address] [id number] [address] [place] [address] Apr, Anxiety F41.9 and 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 Via [facility] [employer] [address] [place] [id number] March, Gastrointestinal hemorrhage associated w ith acute gastritis K29.01 [facility] [address] [id number] [address] [place] [address] March, [facility] [employer] [address] [place] [id number] March, Bronchitis J40 [facility] [address] [id number] [address] [place] [address] March, Cough R05 [facility] [address] [id number] [address] [place] [address] March, Other chronic pain G89.29 [facility] [address] [id number] [address] [place] [address] March, Anxiety F41.9 [facility] [address] [id number] [address] [place] [address] March, [facility] [address] [id number] [address] [place] [address] Feb, Other chronic pain G89.29 [facility] [address] [id number] [address] [place] [address] Feb, Anxiety F41.9 [facility] [address] [id number] [address] [place] [address] Feb, Other chronic pain G89.29 Via [facility] [employer] [address] [place] [id number] Feb, Neurogenic bladder N31.9 and Suprapubic catheter Z93.59 [facility] [address] [id number] [address] [place] [address] Jan, Anxiety F41.9 [facility] [address] [id number] [address] [place] [address] Dec, Anxiety F41.9 [facility] [address] [id number] [address] [place] [address] Dec, Other chronic pain G89.29 an d Anxiety F41.9 [facility] [address] [id number] [address] [place] [address] Dec, Via [employer] [address] [place] [id number] Dec, Neurogenic bladder N31.9 and Suprapubic catheter Z93.59 [facility] [address] [id number] [address] [place] [address] Nov, Other chronic pain G89.29 an d Anxiety F41.9 [facility] [address] [id number] [address] [place] [address] Nov, Via [facility] [address] [place] [id number] Nov, Suprapubic catheter Z93.59 [facility] [address] [id number] [address] [place] [address] Oct, Other chronic pain G89.29 an d Anxiety F41.9 [facility] [address] [id number] [address] [place] [address] Oct, [facility] [address] [id number] [address] [place] [address] Oct, Suprapubic catheter Z93.59 [facility] [address] [id number] [address] [place] [address] Oct, Via [facility] [employer] [address] [place] [id number] Oct, [facility] [address] [id number] [address] [place] [address] Oct, Anxiety F41.9 [facility] [address] [id number] [address] [place] [address] Oct, Anxiety F41.9 Via [employer] [address] [place] [id number] Oct, Other chronic pain G89.29 [facility] [address] [id number] [address] [place] [address] Sep, Other chronic pain G89.29 Via [facility] [employer] [address] [place] [id number] Sep, Suprapubic catheter Z93.59 and Cervicalg ia M54.2 [facility] [address] [id number] [address] [place] [address] Sep, [facility] [address] [id number] [address] [place] [address] Sep, [facility] [address] [id number] [address] [place] [address] Sep, Via [employer] [address] [place] [id number] Aug, Cystitis N30.90 [facility] [address] [id number] [address] [place] [address] Aug, [facility] [address] [id number] [address] [place] [address] Aug, Other chronic pain G89.29 [facility] [address] [id number] [address] [place] [address] Aug, Via [employer] [address] [place] [id number] Aug, Encounter for suprapubic catheter care Z 43.5 [facility] [address] [id number] [address] [place] [address] Jul, Via [employer] [address] [place] [id number] Jul, [facility] [address] [id number] [address] [place] [address] Jul, Other chronic pain G89.29 [facility] [address] [id number] [address] [place] [address] Jul, [facility] [address] [id number] [address] [place] [address] Jul, Via [employer] [address] [place] [id number] Jun, Postmenopausal atrophic vaginitis N95.2 [facility] [address] [id number] [address] [place] [address] Jun, Other chronic pain G89.29 [facility] [address] [id number] [address] [place] [address] Jun, [facility] [employer] [address] [place] [id number] May, Anxiety F41.9 ; Type 2 diabetes mellitus without complication, without long-term current use of insulin E11.9 ; Hypertension I10 ; Low back pain M54.5 ; Paroxysmal atrial fibrillation I48.0 and 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 [facility] [address] [id number] [address] [place] [address] May, Other chronic pain G89.29 [facility] [employer] [address] [place] [id number] May, Low back pain M54.5 [facility] [address] [id number] [address] [place] [address] May, [facility] [address] [id number] [address] [place] [address] Apr, Other chronic pain G89.29 [facility] [address] [id number] [address] [place] [address] Apr, [facility] [address] [id number] [address] [place] [address] Apr, [facility] [employer] [address] [place] [id number] Apr, Closed compression fracture of L3 lumbar vertebra with routine healing, subsequent encounter S32.030D [facility] [employer] [facility] [address] [place] [id number] 14 Apr, 2018 Low back pain M54.5 [facility] [employer] [address] [place] [id number] Apr, Coccydynia M53.3 [facility] [address] [id number] [address] [place] [address] March, [facility] [address] [id number] [address] [place] [address] March, Other chronic pain G89.29 [facility] [address] [id number] [address] [place] [address] March, [facility] [address] [id number] [address] [place] [address] March, [facility] [address] [id number] [address] [place] [address] Feb, [facility] [address] [id number] [address] [place] [address] Feb, Other chronic pain G89.29 [facility] [employer] [address] [place] [id number] Feb, Other chronic pain G89.29 and Anxiety F4 1.9 [facility] [address] [id number] [address] [place] [address] Feb, [facility] [address] [id number] [address] [place] [address] Jan, [facility] [address] [id number] [address] [place] [address] Jan, [facility] [address] [id number] [address] [place] [address] Jan, [facility] [address] [id number] [address] [place] [address] Jan, [facility] [address] [id number] [address] [place] [address] Dec, Via [employer] [address] [place] [id number] Dec, Peripheral vascular disease I73.9 ; 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 [id number] [address] [place] [address] Nov, [place] [address] [id number] [place] [id number] Nov, Anxiety F41.9 [facility] [employer] [address] [place] [id number] Nov, Status post surgery Z98.890 ; Confused R 41.0 ; Anxiety F41.9 and Other chronic pain G89.29 [place] [address] [id number] [facility] [facility] [place] [place] [id number] Nov, Other chronic pain G89.29 [facility] [address] [facility] [id number] [address] [place] [address] Oct, [facility] [address] [id number] [place] [facility] [place] [id number] Oct, Other chronic pain G89.29 [facility] [address] [facility] [id number] [address] [place] [address] Oct, Anxiety F41.9 [facility] [address] [id number] [place] [facility] [place] [place] [id number] Sep, Other chronic pain G89.29 [facility] [address] [id number] [place] [id number] Sep, Via [facility] [address] [place] [id number] Aug, Dysuria R30.0 and Anxiety F41.9 [facility] [address] [id number] [address] [place] [address] Aug, [facility] [address] [id number] [place] [facility] [place] [id number] Aug, Other chronic pain G89.29 [facility] [address] [id number] [address] [place] [address] Jul, Other chronic pain G89.29 [facility] [address] [id number] [place] [id number] Jun, [facility] [address] [id number] [place] [id number] Jun, Other chronic pain G89.29 [facility] [address] [id number] [address] [place] [address] Jun, [facility] [address] [id number] [address] [place] [address] May, Other chronic pain G89.29 [facility] [address] [id number] [address] [place] [address] Apr, Other chronic pain G89.29 Via [facility] [employer] [address] [place] [id number] Apr, Reactive depression F32.9 and Pharyngeal dysphagia R13.13 [facility] [address] [id number] [address] [place] [address] Apr, Urinary tract infection with out hematuria, site unspecified N39.0 [facility] [address] [id number] [address] [place] [address] March, Other chronic pain G89.29 [facility] [address] [id number] [address] [place] [address] Feb, Other chronic pain G89.29 [facility] [address] [id number] [address] [place] [address] Feb, [facility] [address] [id number] [place] [facility] [place] [id number] Feb, Via [facility] [employer] [address] [place] [id number] Feb, Dysuria R30.0 and Ventral hernia without obstruction or gangrene K43.9 [facility] [address] [id number] [address] [place] [address] Jan, Other chronic pain G89.29 [facility] [address] [id number] [place] [facility] [place] [id number] Dec, Other chronic pain G89.29 [facility] [address] [facility] [id number] [address] [place] [address] Nov, Other chronic pain G89.29 [facility] [employer] [address] [place] [id number] Nov, Lymphadenitis I88.9 [facility] [address] [facility] [id number] [address] [place] [address] Nov, Other chronic pain G89.29 [facility] [address] [facility] [id number] [address] [place] [address] Nov, [facility] [address] [id number] [place] [facility] [place] [id number] Nov, Other chronic pain G89.29 [facility] [employer] [address] [place] [id number] Oct, Low back pain M54.5 ; Hypertension I10 a nd Type 2 diabetes mellitus without complication, without long-term current use of insulin E11.9 [facility] [address] [id number] [address] [place] [address] Oct, [facility] [address] [facility] [id number] [address] [place] [address] Oct, [facility] [address] [id number] [address] [place] [address] Oct, [facility] [address] [id number] [address] [place] [address] Oct, [facility] [address] [id number] [address] [place] [address] Sep, [facility] [address] [id number] [address] [place] [address] Sep, [facility] [address] [id number] [address] [place] [address] Aug, Other chronic pain G89.29 [facility] [address] [id number] [address] [place] [address] Jul, [facility] [address] [id number] [address] [place] [address] Jul, [facility] [address] [id number] [address] [place] [address] Jul, [facility] [address] [id number] [address] [place] [address] Jun, [facility] [address] [id number] [address] [place] [address] Jun, Via [facility] [address] [place] [id number] Jun, Low back pain M54.5 ; Other chronic pain G89.29 and Coronary artery disease I25.10 [facility] [address] [id number] [address] [place] [address] Jun, [facility] [address] [id number] [address] [place] [address] May, [facility] [address] [id number] [address] [place] [address] May, [facility] [address] [id number] [address] [place] [address] May, Other chronic pain G89.29 [facility] [address] [id number] [address] [place] [address] 13 May, 2016 [facility] [address] [id number] [address] [place] [address] 28 Apr, 2016 [facility] [address] [id number] [address] [place] [address] 17 Apr, 2016 Acute cystitis without hemat uria N30.00 [facility] [address] [id number] [address] [place] [address] 16 Apr, 2016 Acute cystitis without hemat uria N30.00 ; Coronary artery disease I25.10 ; Low back pain M54.5 and Other chronic pain G89.29 [facility] [address] [id number] [address] [place] [address] 13 Apr, 2016 Other chronic pain G89.29 [facility] [address] [id number] [address] [place] [address] March, Other chronic pain G89.29 [facility] [address] [id number] [address] [place] [address] 18 Feb, 2016 [facility] [address] [id number] [address] [place] [address] 15 Feb, 2016 Arthritis M19.90 [facility] [address] [id number] [address] [place] [address] Feb, [facility] [address] [id number] [address] [place] [address] 30 Jan, 2016 [facility] [address] [id number] [address] [place] [address] Jan, [facility] [address] [id number] [address] [place] [address] Jan, Other chronic pain G89.29 [facility] [address] [id number] [address] [place] [address] Jan, Hypertension I10 ; Coronary artery disease I25.10 and Insomnia G47.00 [facility] [address] [id number] [address] [place] [address] Jan, [facility] [address] [id number] [address] [place] [address] Dec, Right hip pain M25.551 [facility] [address] [id number] [address] [place] [id number] Dec, [facility] [address] [id number] [address] [place] [id number] Dec, [facility] [address] [id number] [address] [place] [id number] Dec, [facility] [address] [id number] [address] [place] [id number] Dec, Other chronic pain G89.29 [facility] [address] [id number] [address] [place] [phone] Dec, [facility] [address] [id number] [address] [place] [id number] Nov, [facility] [address] [id number] [address] [place] [id number] Nov, Other chronic pain G89.29 [facility] [address] [id number] [address] [place] [id number] Nov, Right hip pain M25.551 and C oronary artery disease I25.10 [facility] [address] [id number] [address] [place] [id number] Nov, Other chronic pain G89.29 [facility] [address] [id number] [address] [place] [id number] Oct, [facility] [address] [id number] [address] [place] [id number] Oct, [facility] [address] [id number] [address] [place] [phone] Sep, [facility] [address] [id number] [address] [place] [id number] Sep, [facility] [address] [id number] [address] [place] [id number] Aug, [facility] [address] [id number] [address] [place] [id number] Aug, Hypertension I10 ; Coronary artery disease I25.10 and Arthritis M19.90 [facility] [address] [id number] [address] [place] [id number] Jun, [facility] [address] [id number] [address] [place] [id number] Jun, Essential hypertension, jayson gn 401.1 ; Other chronic pain 338.29 and Chronic airway obstruction, not elsewhere classified 496 [facility] [address] [id number] [address] [place] [address] Jun, [facility] [address] [id number] [address] [place] [address] Jun, [facility] [address] [id number] [address] [place] [address] Jun, [facility] [address] [id number] [address] [place] [address] May, [facility] [address] [id number] [address] [place] [address] May, [facility] [address] [id number] [address] [place] [address] Apr, [facility] [address] [id number] [address] [place] [address] Apr, [facility] [address] [id number] [address] [place] [address] Apr, [facility] [address] [id number] [address] [place] [address] March, [facility] [address] [id number] [address] [place] [address], [place] [address] March, [facility] [address] [id number] [address] [place] [address], [place] [address] March, [facility] [address] [id number] [address] [place] [address], [place] [address] March, [facility] [address] [id number] [address] [place] [address], [place] [address] March, Sialadenitis 527.2 [facility] [address] [id number] [address] [place] [address], [place] [address] Feb, [facility] [address] [id number] [address] [place] [address], [place] [address] Feb, [facility] [address] [id number] [address] [place] [address], [place] [address] Feb, [facility] [address] [id number] [address] [place] [address], [place] [address] Feb, [facility] [address] [id number] [address] [place] [address], [place] [address] Feb, [facility] [address] [id number] [address] [place] [address], [place] [address] Jan, [facility] [address] [id number] [address] [place] [address], [place] [address] Jan, [facility] [address] [id number] [address] [place] [address], [place] [address] Jan, [facility] [address] [id number] [address] [place] [address], [place] [address] Jan, [facility] [address] [id number] [address] [place] [address], [place] [address] Jan, [facility] [address] [id number] [address] [place] [address], [place] [address] Jan, [facility] [address] [id number] [address] [place] [address], [place] [address] Dec, [facility] [address] [id number] [address] [place] [address], [place] [address] Dec, [facility] [address] [id number] [address] [place] [address], [place] [address] Dec, [facility] [address] [id number] [address] [place] [address], [place] [address] Dec, [facility] [address] [id number] [address] [place] [address], [place] [address] Dec, [facility] [address] [id number] [address] [place] [address], [place] [address] Dec, [facility] [address] [id number] [address] [place] [address], [place] [address] Nov, [facility] [address] [id number] [address] [place] [address], [place] [address] Nov, [facility] [address] [id number] [address] [place] [address], [place] [address] Nov, [facility] [address] [id number] [address] [place] [address], [place] [address] Nov, [facility] [address] [id number] [address] [place] [address], [place] [address] Nov, [facility] [address] [id number] [address] [place] [address], [place] [address] Nov, [facility] [address] [id number] [address] [place] [address], [place] [address] Nov, [facility] [address] [id number] [address] [place] [address], [place] [address] Nov, [facility] [address] [id number] [address] [place] [address], [place] [address] Nov, [facility] [address] [id number] [address] [place] [address], [place] [address] 15 Nov, 2014 [facility] [address] [id number] [address] [place] [address], [place] [address] Nov, [facility] [address] [id number] [address] [place] [address], [place] [address] Nov, [facility] [address] [id number] [address] [place] [address], [place] [address] Nov, [facility] [address] [id number] [address] [place] [address], [place] [address] Nov, [facility] [address] [id number] [address] [place] [address], [place] [address] Oct, [facility] [address] [id number] [address] [place] [address], [place] [address] Oct, [facility] [address] [id number] [address] [place] [address], [place] [address] Oct, [facility] [address] [id number] [address] [place] [address], [place] [address] Oct, [facility] [address] [id number] [address] [place] [address], [place] [address] Oct, [facility] [address] [id number] [address] [place] [address], [place] [address] 17 Oct, 2014 [facility] [address] [id number] [address] [place] [address], [place] [address] 17 Oct, 2014 [facility] [address] [id number] [address] [place] [address], [place] [address] Oct, [facility] [address] [id number] [address] [place] [address], [place] [address] Oct, [facility] [address] [id number] [address] [place] [address], [place] [address] Sep, [facility] [address] [id number] [address] [place] [address], [place] [address] Sep, [facility] [address] [id number] [address] [place] [address], [place] [address] Sep, [facility] [address] [id number] [address] [place] [address], [place] [address] Sep, [facility] [address] [id number] [address] [place] [address], [place] [address] Sep, [facility] [address] [id number] [address] [place] [address], [place] [address] Sep, [facility] [address] [id number] [address] [place] [address], [place] [address] Sep, [facility] [address] [id number] [address] [place] [address], [place] [address] Sep, [facility] [address] [id number] [address] [place] [address], [place] [address] Sep, [facility] [address] [id number] [address] [place] [address], [place] [address] Sep, [facility] [address] [id number] [address] [place] [address], [place] [address] Sep, [facility] [address] [id number] [address] [place] [address], [place] [address] Sep, [facility] [address] [id number] [address] [place] [address], [place] [address] Aug, [facility] [address] [id number] [address] [place] [address], [place] [address] Aug, [facility] [address] [id number] [address] [place] [address], [place] [address] Aug, [facility] [address] [id number] [address] [place] [address], [place] [address] Aug, [facility] [address] [id number] [address] [place] [address], [place] [address] Aug, [facility] [address] [id number] [address] [place] [address], [place] [address] 28 Aug, 2014 [facility] [address] [id number] [address] [place] [address], [place] [address] 17 Aug, 2014 [facility] [address] [id number] [address] [place] [address], [place] [address] 17 Aug, 2014 [facility] [address] [id number] [address] [place] [address], [place] [address] 30 Jul, 2013 [facility] [address] [id number] [address] [place] [address], [place] [address] 30 Jul, 2013 [facility] [address] [id number] [address] [place] [address], [place] [address] 30 Jul, 2013 [facility] [address] [id number] [address] [place] [address], [place] [address] 30 Jul, 2013 [facility] [address] [id number] [address] [place] [address], [place] [address] 25 Jul, 2013 [facility] [address] [id number] [address] [place] [address], [place] [address] 25 Jul, 2013 [facility] [address] [id number] [address] [place] [address], [place] [address] 15 Jul, 2014 [facility] [address] [id number] [address] [place] [address], [place] [address] 15 Jul, 2014 [facility] [address] [id number] [address] [place] [address], [place] [address] 11 Jul, 2014 [facility] [address] [id number] [address] [place] [address], [place] [address] Jul, [facility] [address] [id number] [address] [place] [address], [place] [address] Jun, [facility] [address] [id number] [address] [place] [address], [place] [address] Jun, [facility] [address] [id number] [address] [place] [address], [place] [address] Jun, [facility] [address] [id number] [facility] [place] [address] Jun, [facility] [address] [id number] [facility] [place] [address] Jun, [facility] [address] [id number] [facility] [place] [address] Jun, [facility] [address] [id number] [address] [place] [address], [place] [address] Jun, [facility] [address] [id number] [address] [place] [address], [place] [address] Jun, [facility] [address] [id number] [address] [place] [address], [place] [address] Jun, [facility] [address] [id number] [address] [place] [address], [place] [address] Jun, [facility] [address] [id number] [address] [place] [address], [place] [address] Jun, [facility] [address] [id number] [address] [place] [address], [place] [address] Jun, [facility] [address] [id number] [address] [place] [address], [place] [address] Jun, [facility] [address] [id number] [address] [place] [address], [place] [address] Jun, [facility] [address] [id number] [address] [place] [address], [place] [address] Jun, [facility] [address] [id number] [address] [place] [address], [place] [address] Jun, [facility] [address] [id number] [address] [place] [address], [place] [address] Jun, [facility] [address] [id number] [address] [place] [address], [place] [address] Jun, [facility] [address] [id number] [address] [place] [address], [place] [address] Jun, [facility] [address] [id number] [address] [place] [address], [place] [address] Jun, [facility] [address] [id number] [address] [place] [address], [place] [address] Jun, [facility] [address] [id number] [address] [place] [address], [place] [address] Jun, [facility] [address] [id number] [address] [place] [address], [place] [address] May, [facility] [address] [id number] [address] [place] [address], [place] [address] May, [facility] [address] [id number] [address] [place] [address], [place] [address] May, [facility] [address] [id number] [address] [place] [address], [place] [address] May, [facility] [address] [id number] [address] [place] [address], [place] [address] May, [facility] [address] [id number] [address] [place] [address], [place] [address] May, [facility] [address] [id number] [address] [place] [address], [place] [address] May, [facility] [address] [id number] [address] [place] [address], [place] [address] May, [facility] [address] [id number] [address] [place] [address], [place] [address] May, [facility] [address] [id number] [address] [place] [address], [place] [address] May, [facility] [address] [id number] [address] [place] [address], [place] [address] May, [facility] [address] [id number] [address] [place] [address], [place] [address] May, [facility] [address] [id number] [address] [place] [address], [place] [address] May, [facility] [address] [id number] [facility] [place] [address] Apr, [facility] [address] [id number] [address] [place] [address], [place] [address] Apr, [facility] [address] [id number] [address] [place] [address], [place] [address] Apr, [facility] [address] [id number] [address] [place] [address], [place] [address] Apr, [facility] [address] [id number] [address] [place] [address], [place] [address] Apr, [facility] [address] [id number] [address] [place] [address], [place] [address] Apr, [facility] [address] [id number] [address] [place] [address], [place] [address] Apr, [facility] [address] [id number] [address] [place] [address], [place] [address] Apr, [facility] [address] [id number] [address] [place] [address], [place] [address] Apr, [facility] [address] [id number] [address] [place] [address], [place] [address] March, [facility] [address] [id number] [address] [place] [address], [place] [address] March, [facility] [address] [id number] [address] [place] [address], [place] [address] March, [facility] [address] [id number] [address] [place] [address], [place] [address] March, [facility] [address] [id number] [address] [place] [address], [place] [address] March, [facility] [address] [id number] [address] [place] [address], [place] [address] March, [facility] [address] [id number] [facility] [place] [address] March, [facility] [address] [id number] [address] [place] [address], [place] [address] March, [facility] [address] [id number] [address] [place] [address], [place] [address] March, [facility] [address] [id number] [address] [place] [address], [place] [address] March, [facility] [address] [id number] [address] [place] [address], [place] [address] March, [facility] [address] [id number] [address] [place] [address], [place] [address] March, [facility] [address] [id number] [address] [place] [address], [place] [address] March, [facility] [address] [id number] [address] [place] [address], [place] [address] March, [facility] [address] [id number] [address] [place] [address], [place] [address] March, [facility] [address] [id number] [address] [place] [address], [place] [address] March, [facility] [address] [id number] [address] [place] [address], [place] [address] March, [facility] [address] [id number] [address] [place] [address], [place] [address] March, [facility] [address] [id number] [address] [place] [address], [place] [address] March, [facility] [address] [id number] [address] [place] [address], [place] [address] March, [facility] [address] [id number] [address] [place] [address], [place] [address] Feb, [facility] [address] [id number] [address] [place] [address], [place] [address] Feb, [facility] [address] [id number] [facility] [place] [address] Feb, [facility] [address] [id number] [facility] [place] [address] Feb, [facility] [address] [id number] [facility] [place] [address] Feb, [facility] [address] [id number] [facility] [place] [address] Feb, [facility] [address] [id number] [facility] [place] [address] Feb, [facility] [address] [id number] [address] [place] [address], [place] [address] Feb, [facility] [address] [id number] [address] [place] [address], [place] [address] Jan, [facility] [address] [id number] [address] [place] [address], [place] [address] Jan, [facility] [address] [id number] [address] [place] [address], [place] [address] Jan, [facility] [address] [id number] [address] [place] [address], [place] [address] Jan, [facility] [address] [id number] [address] [place] [address], [place] [address] Jan, [facility] [address] [id number] [address] [place] [address], [place] [address] Jan, [facility] [address] [id number] [address] [place] [address], [place] [address] Jan, [facility] [address] [id number] [address] [place] [address], [place] [address] Jan, [facility] [address] [id number] [address] [place] [address], [place] [address] Jan, [facility] [address] [id number] [address] [place] [address], [place] [address] Jan, [facility] [address] [id number] [address] [place] [address], [place] [address] Dec, [facility] [address] [id number] [address] [place] [address], [place] [address] Dec, [facility] [address] [id number] [address] [place] [address], [place] [address] Dec, [facility] [address] [id number] [address] [place] [address], [place] [address] Dec, [facility] [address] [id number] [address] [place] [address], [place] [address] Dec, [facility] [address] [id number] [address] [place] [address], [place] [address] Dec, [facility] [address] [id number] [address] [place] [address], [place] [address] Dec, [facility] [address] [id number] [address] [place] [address], [place] [address] Dec, [facility] [address] [id number] [address] [place] [address], [place] [address] Nov, [facility] [address] [id number] [address] [place] [address], [place] [address] Nov, [facility] [address] [id number] [address] [place] [address], [place] [address] Nov, [facility] [address] [id number] [address] [place] [address], [place] [address] Nov, [facility] [address] [id number] [address] [place] [address], [place] [address] Nov, [facility] [address] [id number] [address] [place] [address], [place] [address] Nov, [facility] [address] [id number] [address] [place] [address], [place] [address] Nov, [facility] [address] [id number] [address] [place] [address], [place] [address] Nov, [facility] [address] [id number] [address] [place] [address], [place] [address] Nov, [facility] [address] [id number] [address] [place] [address], [place] [address] Nov, [facility] [address] [id number] [address] [place] [address], [place] [address] Nov, [facility] [address] [id number] [address] [place] [address], [place] [address] Nov, [facility] [address] [id number] [address] [place] [address], [place] [address] Nov, [facility] [address] [id number] [address] [place] [address], [place] [address] Oct, [facility] [address] [id number] [address] [place] [address], [place] [address] Oct, [facility] [address] [id number] [address] [place] [address], [place] [address] Oct, [facility] [address] [id number] [address] [place] [address], [place] [address] Oct, [facility] [address] [id number] [address] [place] [address], [place] [address] Oct, [facility] [address] [id number] [address] [place] [address], [place] [address] Oct, [facility] [address] [id number] [address] [place] [address], [place] [address] 18 Oct, 2013 [facility] [address] [id number] [address] [place] [address], [place] [address] 18 Oct, 2013 [facility] [address] [id number] [address] [place] [address], [place] [address] 17 Oct, 2013 [facility] [address] [id number] [address] [place] [address], [place] [address] 17 Oct, 2013 [facility] [address] [id number] [address] [place] [address], [place] [address] 03 Oct, 2013 [facility] [address] [id number] [address] [place] [address], [place] [address] Oct, [facility] [address] [id number] [address] [place] [address], [place] [address] 02 Oct, 2013 [facility] [address] [id number] [address] [place] [address], [place] [address] 02 Oct, 2013 [facility] [address] [id number] [address] [place] [address], [place] [address] Sep, [facility] [address] [id number] [address] [place] [address], [place] [address] Sep, [facility] [address] [id number] [address] [place] [address], [place] [address] Sep, [facility] [address] [id number] [address] [place] [address], [place] [address] Sep, [facility] [address] [id number] [address] [place] [address], [place] [address] Sep, [facility] [address] [id number] [address] [place] [address], [place] [address] Sep, [facility] [address] [id number] [address] [place] [address], [place] [address] Sep, [facility] [address] [id number] [address] [place] [address] Sep, [facility] [address] [id number] [address] [place] [address], [place] [address] Sep, [facility] [address] [id number] [address] [place] [address], [place] [address] Sep, [facility] [address] [id number] [address] [place] [address] 24 Aug, 2013 [facility] [address] [id number] [address] [place] [address], [place] [address] Aug, [facility] [address] [id number] [address] [place] [address], [place] [address] Aug, [facility] [address] [id number] [address] [place] [address], [place] [address] Aug, [facility] [address] [id number] [address] [place] [address], [place] [address] Aug, [facility] [address] [id number] [address] [place] [address], [place] [address] Aug, [facility] [address] [id number] [address] [place] [address], [place] [address] Aug, [facility] [address] [id number] [address] [place] [address], [place] [address] Aug, [facility] [address] [id number] [address] [place] [address], [place] [address] Aug, [facility] [address] [id number] [address] [place] [address], [place] [address] Aug, [facility] [address] [id number] [address] [place] [address], [place] [address] 18 Aug, 2013 [facility] [address] [id number] [address] [place] [address], [place] [address] 18 Aug, 2013 [facility] [address] [id number] [address] [place] [address] 18 Aug, 2013 [facility] [address] [id number] [address] [place] [address], [place] [address] 18 Aug, 2013 [facility] [address] [id number] [address] [place] [address], [place] [address] 17 Aug, 2013 [facility] [address] [id number] [address] [place] [address] 14 Aug, 2013 [facility] [address] [id number] [address] [place] [address] 14 Aug, 2013 [facility] [address] [id number] [address] [place] [address], [place] [address] Aug, [facility] [address] [id number] [address] [place] [address], [place] [address] 20 Jul, 2013 [facility] [address] [id number] [address] [place] [address], [place] [address] 19 Jul, 2013 [facility] [address] [id number] [address] [place] [address], [place] [address] 18 Jul, 2013 [facility] [address] [id number] [address] [place] [address], [place] [address] 11 Jul, 2013 [facility] [address] [id number] [address] [place] [address], [place] [address] Jul, [facility] [address] [id number] [address] [place] [address], [place] [address] Jun, [facility] [address] [id number] [address] [place] [address], [place] [address] Jun, [facility] [address] [id number] [address] [place] [address], [place] [address] Jun, [facility] [address] [id number] [address] [place] [address], [place] [address] Jun, [facility] [address] [id number] [address] [place] [address], [place] [address] 14 Jun, 2013 [facility] [address] [id number] [address] [place] [address], [place] [address] Jun, [facility] [address] [id number] [address] [place] [address], [place] [address] Jun, [facility] [address] [id number] [address] [place] [address], [place] [address] Jun, [facility] [address] [id number] [address] [place] [address], [place] [address] Jun, [facility] [address] [id number] [address] [place] [address], [place] [address] Jun, [facility] [address] [id number] [address] [place] [address], [place] [address] May, [facility] [address] [id number] [address] [place] [address], [place] [address] May, [facility] [address] [id number] [address] [place] [address], [place] [address] May, [facility] [address] [id number] [address] [place] [address], [place] [address] May, [facility] [address] [id number] [address] [place] [address], [place] [address] May, [facility] [address] [id number] [address] [place] [address], [place] [address] May, [facility] [address] [id number] [address] [place] [address], [place] [address] May, [facility] [address] [id number] [address] [place] [address], [place] [address] May, [facility] [address] [id number] [address] [place] [address], [place] [address] May, [facility] [address] [id number] [address] [place] [address], [place] [address] Apr, [facility] [address] [id number] [address] [place] [address], [place] [address] Apr, [facility] [address] [id number] [address] [place] [address], [place] [address] Apr, [facility] [address] [id number] [address] [place] [address], [place] [address] Apr, [facility] [address] [id number] [address] [place] [address], [place] [address] Apr, [facility] [address] [id number] [address] [place] [address], [place] [address] Apr, [facility] [address] [id number] [address] [place] [address], [place] [address] Apr, [facility] [address] [id number] [address] [place] [address], [place] [address] March, [facility] [address] [id number] [address] [place] [address], [place] [address] Feb, [facility] [address] [id number] [address] [place] [address], [place] [address] Feb, [facility] [address] [id number] [address] [place] [address], [place] [address] Feb, [facility] [address] [id number] [address] [place] [address], [place] [address] Jan, [facility] [address] [id number] [address] [place] [address], [place] [address] Jan, [facility] [address] [id number] [address] [place] [address], [place] [address] Jan, [facility] [address] [id number] [address] [place] [address], [place] [address] Jan, [facility] [address] [id number] [address] [place] [address], [place] [address] Jan, [facility] [address] [id number] [address] [place] [address], [place] [address] Jan, [facility] [address] [id number] [address] [place] [address], [place] [address] Jan, [facility] [address] [id number] [address] [place] [address], [place] [address] Jan, [facility] [address] [id number] [address] [place] [address], [place] [address] Dec, [facility] [address] [id number] [address] [place] [address], [place] [address] Dec, [facility] [address] [id number] [address] [place] [address], [place] [address] 13 Dec, 2012 [facility] [address] [id number] [address] [place] [address], [place] [address] 11 Dec, 2012 [facility] [address] [id number] [address] [place] [address], [place] [address] 07 Dec, 2012 [facility] [address] [id number] [address] [place] [address], [place] [address] 06 Dec, 2012 [facility] [address] [id number] [address] [place] [address], [place] [address] 05 Dec, 2012 [facility] [address] [id number] [address] [place] [address], [place] [address] Nov, [facility] [address] [id number] [address] [place] [address], [place] [address] 24 Nov, 2012 [facility] [address] [id number] [address] [place] [address], [place] [address] 18 Nov, 2012 [facility] [address] [id number] [address] [place] [address], [place] [address] 15 Nov, 2012 [facility] [address] [id number] [address] [place] [address], [place] [address] Nov, [facility] [address] [id number] [address] [place] [address], [place] [address] Nov, [facility] [address] [id number] [address] [place] [address], [place] [address] Nov, [facility] [address] [id number] [address] [place] [address], [place] [address] Oct, [facility] [address] [id number] [address] [place] [address], [place] [address] Oct, [facility] [address] [id number] [address] [place] [address], [place] [address] Oct, [facility] [address] [id number] [address] [place] [address], [place] [address] Oct, [facility] [address] [id number] [address] [place] [address], [place] [address] Oct, [facility] [address] [id number] [address] [place] [address], [place] [address] Oct, [facility] [address] [id number] [address] [place] [address], [place] [address] Oct, [facility] [address] [id number] [address] [place] [address], [place] [address] Oct, [facility] [address] [id number] [address] [place] [address], [place] [address] Oct, [facility] [address] [id number] [address] [place] [address], [place] [address] Oct, [facility] [address] [id number] [address] [place] [address], [place] [address] Oct, [facility] [address] [id number] [address] [place] [address], [place] [address] Oct, [facility] [address] [id number] [address] [place] [address], [place] [address] Sep, [facility] [address] [id number] [address] [place] [address], [place] [address] Sep, [facility] [address] [id number] [address] [place] [address], [place] [address] Sep, [facility] [address] [id number] [address] [place] [address] Sep, [facility] [address] [id number] [address] [place] [address], [place] [address] Sep, [facility] [address] [id number] [address] [place] [address], [place] [address] Sep, [facility] [address] [id number] [address] [place] [address], [place] [address] Sep, [facility] [address] [id number] [address] [place] [address] Sep, [facility] [address] [id number] [address] [place] [address], [place] [address] Sep, [facility] [address] [id number] [address] [place] [address] Sep, [facility] [address] [id number] [address] [place] [address], [place] [address] Sep, [facility] [address] [id number] [address] [place] [address], [place] [address] Aug, [facility] [address] [id number] [address] [place] [address], [place] [address] Aug, [facility] [address] [id number] [address] [place] [address], [place] [address] Aug, [facility] [address] [id number] [address] [place] [address], [place] [address] Aug, [facility] [address] [id number] [address] [place] [address], [place] [address] Aug, [facility] [address] [id number] [address] [place] [address], [place] [address] Aug, [facility] [address] [id number] [address] [place] [address] Aug, [facility] [address] [id number] [address] [place] [address] Aug, [facility] [address] [id number] [address] [place] [address] Aug, [facility] [address] [id number] [address] [place] [address], [place] [address] Aug, [facility] [address] [id number] [address] [place] [address], [place] [address] Jul, [facility] [address] [id number] [address] [place] [address], [place] [address] 20 Jul, 2012 [facility] [address] [id number] [facility] [place] [address] 10 Jul, 2012 [facility] [address] [id number] [address] [place] [address], [place] [address] Jul, [facility] [address] [id number] [facility] [place] [address] Jun, [facility] [address] [id number] [address] [place] [address], [place] [address] Jun, [facility] [address] [id number] [address] [place] [address], [place] [address] Jun, [facility] [address] [id number] [address] [place] [address], [place] [address] Jun, [facility] [address] [id number] [address] [place] [address], [place] [address] Jun, [facility] [address] [id number] [address] [place] [address], [place] [address] Jun, [facility] [address] [id number] [address] [place] [address], [place] [address] Jun, [facility] [address] [id number] [address] [place] [address], [place] [address] May, [facility] [address] [id number] [address] [place] [address], [place] [address] May, [facility] [address] [id number] [address] [place] [address], [place] [address] May, [facility] [address] [id number] [address] [place] [address], [place] [address] May, [facility] [address] [id number] [address] [place] [address], [place] [address] May, [facility] [address] [id number] [address] [place] [address], [place] [address] Apr, [facility] [address] [id number] [address] [place] [address], [place] [address] Apr, [facility] [address] [id number] [address] [place] [address], [place] [address] Apr, [facility] [address] [id number] [address] [place] [address], [place] [address] Apr, [facility] [address] [id number] [address] [place] [address], [place] [address] Apr, [facility] [address] [id number] [address] [place] [address], [place] [address] March, [facility] [address] [id number] [address] [place] [address], [place] [address] March, [facility] [address] [id number] [address] [place] [address], [place] [address] March, [facility] [address] [id number] [address] [place] [address], [place] [address] March, [facility] [address] [id number] [address] [place] [address], [place] [address] March, [facility] [address] [id number] [address] [place] [address], [place] [address] March, [facility] [address] [id number] [address] [place] [address], [place] [address] March, [facility] [address] [id number] [address] [place] [address], [place] [address] March, [facility] [address] [id number] [address] [place] [address], [place] [address] March, [facility] [address] [id number] [address] [place] [address], [place] [address] March, [facility] [address] [id number] [address] [place] [address], [place] [address] Feb, [facility] [address] [id number] [address] [place] [address], [place] [address] Feb, [facility] [address] [id number] [address] [place] [address], [place] [address] 26 Feb, 2012 [facility] [address] [id number] [address] [place] [address], [place] [address] 19 Feb, 2012 [facility] [address] [id number] [address] [place] [address], [place] [address] Feb, [facility] [address] [id number] [address] [place] [address], [place] [address] Feb, [facility] [address] [id number] [address] [place] [address], [place] [address] Feb, [facility] [address] [id number] [address] [place] [address], [place] [address] Feb, [facility] [address] [id number] [address] [place] [address], [place] [address] Feb, [facility] [address] [id number] [address] [place] [address], [place] [address] 08 Jan, 2012 [facility] [address] [id number] [address] [place] [address], [place] [address] 07 Jan, 2012 [facility] [address] [id number] [address] [place] [address], [place] [address] 05 Jan, 2012 [facility] [address] [id number] [address] [place] [address], [place] [address] Jan, [facility] [address] [id number] [address] [place] [address], [place] [address] 29 Dec, 2011 [facility] [address] [id number] [address] [place] [address], [place] [address] Dec, [facility] [address] [id number] [address] [place] [address], [place] [address] Nov, [facility] [address] [id number] [address] [place] [address], [place] [address] Nov, [facility] [address] [id number] [address] [place] [address], [place] [address] Nov, [facility] [address] [id number] [address] [place] [address] Nov, [facility] [address] [id number] [address] [place] [address] Nov, [facility] [address] [id number] [address] [place] [address] Oct, [facility] [address] [id number] [address] [place] [address] Oct, [facility] [address] [id number] [address] [place] [address] Oct, [facility] [address] [id number] [address] [place] [address] Oct, [facility] [address] [id number] [address] [place] [address] Oct, [facility] [address] [id number] [address] [place] [address] Oct, [facility] [address] [id number] [address] [place] [address] Oct, [facility] [address] [id number] [address] [place] [address] Oct, [facility] [address] [id number] [address] [place] [address] Sep, IMMUNIZATIONS No Known Immunizations SOCIAL HISTORY [...] History [facility]- Urosepsis, ab d pain and fever, discharged 11/27/2017 11/26/2017 Hospitalization History [facility]- Went Unrepsonsive, Hit head 2017 Hospitalization History [facility]- Back Pain 05/05/201 8
[2020-06-18 16:11] VITALS: BP 103/69
--- OUTSIDE RECORDS SUMMARY | 2020-06-18 16:11 | XMS REPORT | Continuity of Care Document ---
Author Organization Unknown Address Unknown Phone Unavailable Allergies Active Description Code Type Severity Reaction Onset Reported/Identified Relationship to Patient Clinical Status Yes Cymbalta Drug Allergy N/A N/A 11/06/2011 Yes Cymbalta Drug Allergy 11/06/2011 Yes sulfa drug Drug Allergy 11/06/2011 Yes Chantix 1 mg tablet Drug Aller gy N/A N/A 01/08/2012 Yes Chantix 1 mg tablet Drug Aller gy 01/08/2012 Yes levofloxacin 750 mg tablet Drug Allergy N/A N/A 09/23/2012 Yes levofloxacin 750 mg tablet Drug Allergy 09/23/2012 Yes hydrochlorothiazide 50 mg tablet Drug Allergy N/A N/A 05/06/2013 Yes lisinopril 10 mg tablet Drug Allergy N/A N/A 05/19/2013 Yes diphenhydramine HCl [id number] Drug Allergy Unknown N/A 04/16/2019 Yes hydrochlorothiazide [id number] Drug Allergy Unknown N/A 04/16/2019 Yes Sulfa (Sulfonamide Antibiotics) [id number] Drug Allergy Unknown N/A 019 Yes varenicline tartrate [id number] Drug Allergy Unknown N/A 04/16/2019 Medications There is no data. 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 11/06/2011 305.1 NOND EPENDENT TOBACCO USE DISORDER 11/06/2011 496 CHRONI C OBSTRUCTIVE PULMONARY DISEASE 11/06/2011 683 ACUTE LYMPHADENITIS 11/06/2011 SHANIQUE VEGA MD 246.9 UNSPECIFIED DISORDER OF THYROID 11/06/2011 SHANIQUE VEGA MD 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 11/06/2011 SHANIQUE VEGA MD 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 11/06/2011 SHANIQUE VEGA MD 496 CHRONIC OBSTRUCTIVE PULMONARY DISEASE 11/06/2011 SHANIQUE VEGA MD 683 ACUTE LYMPHADENITIS 11/06/2011 246.9 UNSP ECIFIED DISORDER OF THYROID 11/06/2011 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 11/06/2011 305.1 NOND EPENDENT TOBACCO USE DISORDER 11/06/2011 496 CHRONI C OBSTRUCTIVE PULMONARY DISEASE 11/06/2011 683 ACUTE LYMPHADENITIS 11/06/2011 ILIR DO, MIKE K 246.9 UNSPECIFIED DISORDER OF THYROID 11/06/2011 ILIR DO, MKIE K 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 11/06/2011 HAZEL DO, [...] LYMPHADENITIS 11/06/2011 MARIA DE JESUS BUTLER DO 246 .9 UNSPECIFIED DISORDER OF THYROID 11/06/2011 MARIA DE JESUS BUTLER DO 300 .4 DYSTHYMIC DISORDER 11/06/2011 CARRIE VILLALOBOS MARIA DE JESUS F 305 .1 NONDEPENDENT TOBACCO USE DISORDER 11/06/2011 CARRIE DO [...] 11/06/2011 CARRIE VILLALOBOS MARIA DE JESUS F 246 .9 UNSPECIFIED DISORDER OF THYROID 11/06/2011 CARRIE VILLALOBOS MARIA DE JESUS F 300 .4 DYSTHYMIC DISORDER 11/06/2011 CARRIE VILLALOBOS MARIA DE JESUS F 305 .1 NONDEPENDENT TOBACCO USE DISORDER 11/06/2011 CARRIE VILLALOBOS [...] MENDOZA MD 683 ACUTE LYMPHADENITIS 11/06/2011 246.9 UNSP ECIFIED DISORDER OF THYROID 11/06/2011 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 11/06/2011 305.1 NOND EPENDENT TOBACCO USE DISORDER 11/06/2011 496 CHRONI C OBSTRUCTIVE PULMONARY DISEASE 11/06/2011 683 ACUTE LYMPHADENITIS 11/06/2011 246.9 UNSP ECIFIED DISORDER OF THYROID 11/06/2011 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 11/06/2011 305.1 NOND EPENDENT TOBACCO USE DISORDER 11/06/2011 496 CHRONI C OBSTRUCTIVE PULMONARY DISEASE 11/06/2011 683 ACUTE LYMPHADENITIS 11/06/2011 246.9 UNSP ECIFIED DISORDER OF THYROID 11/06/2011 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 11/06/2011 305.1 NOND EPENDENT TOBACCO USE DISORDER 11/06/2011 496 CHRONI C OBSTRUCTIVE PULMONARY DISEASE 11/06/2011 683 ACUTE LYMPHADENITIS 11/06/2011 246.9 UNSP ECIFIED DISORDER OF THYROID 11/06/2011 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 11/06/2011 305.1 NOND EPENDENT TOBACCO USE DISORDER 11/06/2011 496 CHRONI C OBSTRUCTIVE PULMONARY DISEASE 11/06/2011 683 ACUTE LYMPHADENITIS 11/06/2011 246.9 UNSP ECIFIED DISORDER OF THYROID 11/06/2011 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 11/06/2011 305.1 NOND EPENDENT TOBACCO USE DISORDER 11/06/2011 496 CHRONI C OBSTRUCTIVE PULMONARY DISEASE 11/06/2011 683 ACUTE LYMPHADENITIS 11/06/2011 246.9 UNSP ECIFIED DISORDER OF THYROID 11/06/2011 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 11/06/2011 305.1 NOND EPENDENT TOBACCO USE DISORDER 11/06/2011 496 CHRONI C OBSTRUCTIVE PULMONARY DISEASE 11/06/2011 683 ACUTE LYMPHADENITIS 11/06/2011 246.9 UNSP ECIFIED DISORDER OF THYROID 11/06/2011 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 11/06/2011 305.1 NOND EPENDENT TOBACCO USE DISORDER 11/06/2011 496 CHRONI C OBSTRUCTIVE PULMONARY DISEASE 11/06/2011 683 ACUTE LYMPHADENITIS 11/06/2011 246.9 UNSP ECIFIED DISORDER OF THYROID 11/06/2011 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 11/06/2011 305.1 NOND EPENDENT TOBACCO USE DISORDER 11/06/2011 496 CHRONI C OBSTRUCTIVE PULMONARY DISEASE 11/06/2011 683 ACUTE LYMPHADENITIS 11/06/2011 246.9 UNSP ECIFIED DISORDER OF THYROID 11/06/2011 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 11/06/2011 305.1 NOND EPENDENT TOBACCO USE DISORDER 11/06/2011 496 CHRONI C OBSTRUCTIVE PULMONARY DISEASE 11/06/2011 683 ACUTE LYMPHADENITIS 11/06/2011 MARIA DE JESUS BUTLER DO 246 .9 UNSPECIFIED DISORDER OF THYROID 11/06/2011 MARIA DE JESUS BUTLER DO 300 .4 DYSTHYMIC DISORDER 11/06/2011 MARIA DE JESUS BUTLER DO 305 .1 NONDEPENDENT TOBACCO USE DISORDER 11/06/2011 MARIA DE JESUS BUTLER DO 496 CHRONIC OBSTRUCTIVE PULMONARY DISEASE 11/06/2011 RESHMAROLANDO MARIA DE JESUS 683 ACUTE LYMPHADENITIS 11/06/2011 CAROLINE MENDOZA MD [...] MENDOZA MD M 683 ACUTE LYMPHADENITIS 11/06/2011 DESI BAIG APRN 246.9 UNSPECIFIED DISORDER OF THYROID 11/06/2011 DESI BAIG APRN 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 11/06/2011 BAIG DESI BURGOSH 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 11/06/2011 DESI BAIG APRNH 496 CHRONIC OBSTRUCTIVE PULMONARY DISEASE 11/06/2011 DESI BAIG APRNH 683 ACUTE LYMPHADENITIS 11/06/2011 DESI BAIG APRNH 246.9 UNSPECIFIED DISORDER OF THYROID 11/06/2011 DESI BAIG APRNH 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 11/06/2011 DESI BAIG APRNH 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 11/06/2011 DESI BAIG APRN 496 CHRONIC OBSTRUCTIVE PULMONARY DISEASE 11/06/2011 JOVANNI WOODSN, DESI CONRAD 683 ACUTE LYMPHADENITIS 11/06/2011 TARI BURGOS AUDIE R 246.9 UNSPECIFIED DISORDER OF THYROID 11/06/2011 MRAC BLOOM CONVEYOR OPERATOR, AUDIE R 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 11/06/2011 MARC BLOOM CONVEYOR OPERATOR, AUDIE R 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 11/06/2011 TARI BURGOS AUDIE R 496 CHRONIC OBSTRUCTIVE PULMONARY DISEASE 11/06/2011 MARC BLOOM CONVEYOR OPERATOR, AUDIE R 683 ACUTE LYMPHADENITIS 11/06/2011 JIMMY BURGOS SHAHNAZ S 246.9 UNSPECIFIED DISORDER OF THYROID 11/06/2011 JIMMY BURGOS SHAHNAZ S 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 11/06/2011 JIMMY BURGOS SHAHNAZ S 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 11/06/2011 JIMMY BURGOS SHAHNAZ S 496 CHRONIC OBSTRUCTIVE PULMONARY DISEASE 11/06/2011 JIMMY BURGOS SHAHNAZ S 683 ACUTE LYMPHADENITIS 11/06/2011 JACQUIE BURGOS MAX T 24 6.9 UNSPECIFIED DISORDER OF THYROID 11/06/2011 JACQUIE BURGOS MAX T 30 0.4 DYSTHYMIC DISORDER 11/06/2011 JACQUIE BURGOS MAX T 30 5.1 NONDEPENDENT TOBACCO USE DISORDER 11/06/2011 JACQUIE BURGOS MAX T 49 6 CHRONIC OBSTRUCTIVE PULMONARY DISEASE 11/06/2011 JACQUIE BURGOS MAX T 68 3 ACUTE LYMPHADENITIS 11/06/2011 JACQUIE BURGOS MAX T 24 6.9 UNSPECIFIED DISORDER OF THYROID 11/06/2011 JACQUIE BURGOS MAX T 30 0.4 DYSTHYMIC DISORDER 11/06/2011 JACQUIE BURGOS MAX T 30 5.1 NONDEPENDENT TOBACCO USE DISORDER 11/06/2011 JACQUIE BURGOS MAX T 49 6 CHRONIC OBSTRUCTIVE PULMONARY DISEASE 11/06/2011 JACQUIE BURGOS MAX T 68 3 ACUTE LYMPHADENITIS 11/06/2011 HAZEL DO, MIKE K 246.9 UNSPECIFIED DISORDER OF THYROID 11/06/2011 HAZEL DO, MIKE K 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 11/06/2011 HAZEL DO, MIKE K 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 11/06/2011 HAZEL DO, MIKE K 496 CHRONIC OBSTRUCTIVE PULMONARY DISEASE 11/06/2011 ILIR VILLALOBOS MIKE K 683 ACUTE LYMPHADENITIS 11/06/2011 CAROLINE MENDOZA MD 246.9 UNSPECIFIED DISORDER OF THYROID 11/06/2011 CAROLINE MENDOZA MD 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 11/06/2011 CAROLINE MENDOZA MD 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 11/06/2011 CAROLINE MENDOZA MD M 496 CHRONIC OBSTRUCTIVE PULMONARY DISEASE 11/06/2011 CAROILNE MENDOZA MD 683 ACUTE LYMPHADENITIS 11/06/2011 CAROLINE MENDOZA MD 246.9 UNSPECIFIED DISORDER OF THYROID 11/06/2011 CAROLINE MENDOZA MD 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 11/06/2011 CAROLINE EMNDOZA MD 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 11/06/2011 CAROLINE MENDOZA MD 496 CHRONIC OBSTRUCTIVE PULMONARY DISEASE 11/06/2011 CAROLINE MENDOZA MD 683 ACUTE LYMPHADENITIS 11/06/2011 SHARIF JOHNSON MD N 246 .9 UNSPECIFIED DISORDER OF THYROID 11/06/2011 SHARIF JHONSON MD N 300 .4 DYSTHYMIC DISORDER 11/06/2011 SHARIF JOHNSON MD N 305 .1 NONDEPENDENT TOBACCO USE DISORDER 11/06/2011 SHARIF JOHNSON MD N 496 CHRONIC OBSTRUCTIVE PULMONARY DISEASE 11/06/2011 SHARIF JOHNSON MD N 683 ACUTE LYMPHADENITIS 11/06/2011 SHARIF JOHNSON MD N 246 .9 UNSPECIFIED DISORDER OF THYROID 11/06/2011 SHARIF JOHNSON MD N 300 .4 DYSTHYMIC DISORDER 11/06/2011 SHARIF JOHNSON MD N 305 .1 NONDEPENDENT TOBACCO USE DISORDER 11/06/2011 SHARIF JOHNSON MD N 496 CHRONIC OBSTRUCTIVE PULMONARY DISEASE 11/06/2011 SHARIF JOHNSON MD N 683 ACUTE LYMPHADENITIS 11/06/2011 SHARIF JOHNSON MD N 246 .9 UNSPECIFIED DISORDER OF THYROID 11/06/2011 SHARIF JOHNSON MD N 300 .4 DYSTHYMIC DISORDER 11/06/2011 SHARIF JOHNSON MD N 305 .1 NONDEPENDENT TOBACCO USE DISORDER 11/06/2011 SHARIF JOHNSON MD N 496 CHRONIC OBSTRUCTIVE PULMONARY DISEASE 11/06/2011 SHARIF JOHNSON MD N 683 ACUTE LYMPHADENITIS 11/06/2011 SHARIF JOHNSON MD N 246 .9 UNSPECIFIED DISORDER OF THYROID 11/06/2011 SHARIF JOHNSON MD N 300 .4 DYSTHYMIC DISORDER 11/06/2011 SHARIF JOHNSON MD N 305 .1 NONDEPENDENT TOBACCO USE DISORDER 11/06/2011 SHARIF JOHNSON MD N 496 CHRONIC OBSTRUCTIVE PULMONARY DISEASE 11/06/2011 SHARIF JOHNSON MD N 683 ACUTE LYMPHADENITIS 11/06/2011 SHARIF JOHNSON MD N 246 .9 UNSPECIFIED DISORDER OF THYROID 11/06/2011 SHARIF JOHNSON MD N 300 .4 DYSTHYMIC DISORDER 11/06/2011 SHARIF JOHNSON MD N 305 .1 NONDEPENDENT TOBACCO USE DISORDER 11/06/2011 SHARIF JOHNSON MD N 496 CHRONIC OBSTRUCTIVE PULMONARY DISEASE 11/06/2011 SHARIF JOHNSON MD N 683 ACUTE LYMPHADENITIS 11/06/2011 JOVANNI BURGOS DESI CONRAD 246.9 UNSPECIFIED DISORDER OF THYROID 11/06/2011 JOVANNI BURGOS DESI SINGHH 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 11/06/2011 JOVANNI BURGOS DESI SINGHH 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 11/06/2011 JOVANNI BURGOS DESI SINGHH 496 CHRONIC OBSTRUCTIVE PULMONARY DISEASE 11/06/2011 JOVANNI BURGOS DESI SINGHH 683 ACUTE LYMPHADENITIS 11/06/2011 SHARIF JOHNSON MD N 246 .9 UNSPECIFIED DISORDER OF THYROID 11/06/2011 SHARIF JOHNSON MD N 300 .4 DYSTHYMIC DISORDER 11/06/2011 SHARIF JOHNSON MD N 305 .1 NONDEPENDENT TOBACCO USE DISORDER 11/06/2011 SHARIF JOHNSON MD N 496 CHRONIC OBSTRUCTIVE PULMONARY DISEASE 11/06/2011 SHARIF JOHNSON MD N 683 ACUTE LYMPHADENITIS 11/06/2011 SHARIF JOHNSON MD N 246 .9 UNSPECIFIED DISORDER OF THYROID 11/06/2011 SHARIF JOHNSON MD N 300 .4 DYSTHYMIC DISORDER 11/06/2011 SHARIF JOHNSON MD N 305 .1 NONDEPENDENT TOBACCO USE DISORDER 11/06/2011 SHARIF JOHNSON MD N 496 CHRONIC OBSTRUCTIVE PULMONARY DISEASE 11/06/2011 SHARIF JOHNSON MD N 683 ACUTE LYMPHADENITIS 11/06/2011 DESI BAIG APRN 246.9 UNSPECIFIED DISORDER OF THYROID 11/06/2011 JOVANNI WOODSNDESI 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 11/06/2011 JOVANNI WOODSNDESI 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 11/06/2011 JOVANNI WOODSTiara DESI CONRAD 496 CHRONIC OBSTRUCTIVE PULMONARY DISEASE 11/06/2011 JOVANNI WOODSNDESI 683 ACUTE LYMPHADENITIS 11/06/2011 SHARIF JOHNSON MD 246 .9 UNSPECIFIED DISORDER OF THYROID 11/06/2011 SHARIF JOHNSON MD N 300 .4 DYSTHYMIC DISORDER 11/06/2011 SHARIF JOHNSON MD N 305 .1 NONDEPENDENT TOBACCO USE DISORDER 11/06/2011 SHARIF JOHNSON MD N 496 CHRONIC OBSTRUCTIVE PULMONARY DISEASE 11/06/2011 SHARIF JOHNSON MD N 683 ACUTE LYMPHADENITIS 11/06/2011 SHARIF JOHNSON MD 246 .9 UNSPECIFIED DISORDER OF THYROID 11/06/2011 SHARIF JOHNSON MD N 300 .4 DYSTHYMIC DISORDER 11/06/2011 SHARIF JOHNSON MD N 305 .1 NONDEPENDENT TOBACCO USE DISORDER 11/06/2011 SHARIF JOHNSON MD N 496 CHRONIC OBSTRUCTIVE PULMONARY DISEASE 11/06/2011 SHARIF JOHNSON MD N 683 ACUTE LYMPHADENITIS 11/06/2011 MASSIEL VEGA 246.9 UNSPECIFIED DISORDER OF THYROID 11/06/2011 MASSIEL VEGA 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 11/06/2011 MASSIEL VEGA 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 11/06/2011 MASSIEL VEGA 4 96 CHRONIC OBSTRUCTIVE PULMONARY DISEASE 11/06/2011 MASSIEL VEGA 6 83 ACUTE LYMPHADENITIS 11/06/2011 ILIR VILLALOBOS MIKE K 246.9 UNSPECIFIED DISORDER OF THYROID 11/06/2011 HAZEL DO, MIKE K 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 11/06/2011 HAZEL DO, MIKE K 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 11/06/2011 HAZEL DO MIKE K 496 CHRONIC OBSTRUCTIVE PULMONARY DISEASE 11/06/2011 HAZEL DO, MIKE K 683 ACUTE LYMPHADENITIS 11/06/2011 SHARIF JOHNSON MD N 246 .9 UNSPECIFIED DISORDER OF THYROID 11/06/2011 SHARIF JOHNSON MD N 300 .4 DYSTHYMIC DISORDER 11/06/2011 SHARIF JOHNSON MD N 305 .1 NONDEPENDENT TOBACCO USE DISORDER 11/06/2011 SHARIF JOHNSON MD N 496 CHRONIC OBSTRUCTIVE PULMONARY DISEASE 11/06/2011 SHARIF JOHNSON MD N 683 ACUTE LYMPHADENITIS 11/06/2011 SHANIQUE VEGA MD 246.9 UNSPECIFIED DISORDER OF THYROID 11/06/2011 SHANIQUE VEGA MD 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 11/06/2011 SHANIQUE VEGA MD 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 11/06/2011 SHANIQUE VEGA MD 49Al CHRONIC OBSTRUCTIVE PULMONARY DISEASE 11/06/2011 SHANIQUE VEGA MD 683 ACUTE LYMPHADENITIS 11/06/2011 SHARIF JOHNSON MD N 246 .9 UNSPECIFIED DISORDER OF THYROID 11/06/2011 SHARIF JOHNSON MD N 300 .4 DYSTHYMIC DISORDER 11/06/2011 SHARIF JOHNSON MD N 305 .1 NONDEPENDENT TOBACCO USE DISORDER 11/06/2011 SHARIF JOHNSON MD N 496 CHRONIC OBSTRUCTIVE PULMONARY DISEASE 11/06/2011 SHARIF JOHNSON MD N 683 ACUTE LYMPHADENITIS 11/06/2011 SHARIF JOHNSON MD N 246 .9 UNSPECIFIED DISORDER OF THYROID 11/06/2011 SHARIF JOHNSON MD N 300 .4 DYSTHYMIC DISORDER 11/06/2011 SHARIF JOHNSON MD N 305 .1 NONDEPENDENT TOBACCO USE DISORDER 11/06/2011 SHARIF JOHNSON MD N 496 CHRONIC OBSTRUCTIVE PULMONARY DISEASE 11/06/2011 SHARIF JOHNSON MD N 683 ACUTE LYMPHADENITIS 11/06/2011 MARIA DE JESUS BUTLER DO F 246 .9 UNSPECIFIED DISORDER OF THYROID 11/06/2011 MARKO BUTLER DOEN F 300 .4 DYSTHYMIC DISORDER 11/06/2011 CARRIE VILLALOBOS MARIA DE JESUS F 305 .1 NONDEPENDENT TOBACCO USE DISORDER 11/06/2011 MARKO BUTLER DOEN F 496 CHRONIC OBSTRUCTIVE PULMONARY DISEASE 11/06/2011 [...] DEPRESSIVE RECURRENT UNSPECIFIED 12/18/2011 SHANIQUE VEGA MD 296.3 0 MO DEPRESSIVE RECURRENT UNSPECIFIED 12/18/2011 296.30 MO DEPRESSIVE RECURRENT UNSPECIFIED 12/18/2011 HAZEL DO, MIKE K 296.30 MO DEPRESSIVE RECURRENT UNSPECIFIED 12/18/2011 HAZEL DO MIKE K 296.30 MO DEPRESSIVE RECURRENT UNSPECIFIED 12/18/2011 MARIA DE JESUS BUTLER DO 296 .30 MO DEPRESSIVE RECURRENT UNSPECIFIED 12/18/2011 CAROLINE MENDOZA MD 296.30 MO DEPRESSIVE RECURRENT UNSPECIFIED 12/18/2011 MARIA DE JESUS BUTLER DO 296 .30 MO DEPRESSIVE RECURRENT UNSPECIFIED 12/18/2011 CAROLINE MENDOZA [...] UNSPECIFIED 12/18/2011 MARIA DE JESUS BUTLER DO 296 .30 MO DEPRESSIVE RECURRENT UNSPECIFIED 12/18/2011 CAROLINE MENDOZA MD 296.30 MO DEPRESSIVE RECURRENT UNSPECIFIED 12/18/2011 CAROLINE MENDOZA MD 296.30 MO DEPRESSIVE RECURRENT UNSPECIFIED 12/18/2011 CAROLINE MENDOZA MD 296.30 MO DEPRESSIVE RECURRENT UNSPECIFIED 12/18/2011 DESI BAIG APRN 296.30 MO DEPRESSIVE RECURRENT UNSPECIFIED 12/18/2011 DESI BAIG APRN 296.30 MO DEPRESSIVE RECURRENT UNSPECIFIED 12/18/2011 AUDIE MARC APRN R 296.30 MO DEPRESSIVE RECURRENT UNSPECIFIED 12/18/2011 JIMMY BURGOS, SHAHNAZ S 296.30 MO DEPRESSIVE RECURRENT UNSPECIFIED 12/18/2011 MAX DHILLON APRN T 296.30 MO DEPRESSIVE RECURRENT UNSPECIFIED 12/18/2011 MAX DHILLON APRN T 296.30 MO DEPRESSIVE RECURRENT UNSPECIFIED 12/18/2011 MIKE HAZEL DO K 296.30 MO DEPRESSIVE RECURRENT UNSPECIFIED 12/18/2011 CAROLINE MENDOZA MD 296.30 MO DEPRESSIVE RECURRENT UNSPECIFIED 12/18/2011 CAROLINE MENDOZA MD 296.30 MO DEPRESSIVE RECURRENT UNSPECIFIED 12/18/2011 SHARIF JOHNSON MD N 296 .30 MO DEPRESSIVE RECURRENT UNSPECIFIED 12/18/2011 SHARIF JOHNSON MD N 296 .30 MO DEPRESSIVE RECURRENT UNSPECIFIED 12/18/2011 SHARIF JOHNSON MD N 296 .30 MO DEPRESSIVE RECURRENT UNSPECIFIED 12/18/2011 SHARIF JOHNSON MD N 296 .30 MO DEPRESSIVE RECURRENT UNSPECIFIED 12/18/2011 SHARIF JOHNSON MD N 296 .30 MO DEPRESSIVE RECURRENT UNSPECIFIED 12/18/2011 JOVANNI BURGOS DESI CONRAD 296.30 MO DEPRESSIVE RECURRENT UNSPECIFIED 12/18/2011 SHARIF JOHNSON MD N 296 .30 MO DEPRESSIVE RECURRENT UNSPECIFIED 12/18/2011 SHARIF JOHNSON MD N 296 .30 MO DEPRESSIVE RECURRENT UNSPECIFIED 12/18/2011 JOVANNI BURGOS DESI CONRAD 296.30 MO DEPRESSIVE RECURRENT UNSPECIFIED 12/18/2011 SHARIF JOHNSON MD N 296 .30 MO DEPRESSIVE RECURRENT UNSPECIFIED 12/18/2011 SHARIF JOHNSON MD N 296 .30 MO DEPRESSIVE RECURRENT UNSPECIFIED 12/18/2011 MASSIEL VEGA 296.30 MO DEPRESSIVE RECURRENT UNSPECIFIED 12/18/2011 MIKE HAZEL DO K 296.30 MO DEPRESSIVE RECURRENT UNSPECIFIED 12/18/2011 SHARIF JOHNSON MD N 296 .30 MO DEPRESSIVE RECURRENT UNSPECIFIED 12/18/2011 SHANIQUE EVGA MD 296.3 0 MO DEPRESSIVE RECURRENT UNSPECIFIED 12/18/2011 SHARIF JOHNSON MD N 296 .30 MO DEPRESSIVE RECURRENT UNSPECIFIED 12/18/2011 SHARIF JOHNSON MD N 296 .30 MO DEPRESSIVE RECURRENT UNSPECIFIED 12/18/2011 MARIA DE JESUS BUTLER DO 296 .30 MO DEPRESSIVE RECURRENT UNSPECIFIED 12/18/2011 SHANIQUE VEGA MD 296.3 0 MO DEPRESSIVE RECURRENT UNSPECIFIED 03/12/2012 Ot 272.4 03/12/2012 Ot 300.00 03/12/2012 Ot 305.1 03/12/2012 Ot 311 03/12/2012 Ot 414.01 03/12/2012 Ot 493.22 03/12/2012 Ot V45.82 04/18/2012 300.00 AN ANXIETY UNSPEC 04/18/2012 SHANIQUE VEGA MD 300.0 0 AN ANXIETY UNSPEC 04/18/2012 300.00 AN ANXIETY UNSPEC 04/18/2012 HAZEL MIKE VILLALOBOS K 300.00 AN ANXIETY UNSPEC 04/18/2012 HAZEL MIKE VILLALOBOS K 300.00 AN ANXIETY UNSPEC 04/18/2012 MARIA DE JESUS BUTLER DO 300 .00 AN ANXIETY UNSPEC 04/18/2012 CAROLINE MENDOZA MD 300.00 AN ANXIETY UNSPEC 04/18/2012 MARIA DE JESUS BUTLER DO 300 .00 AN ANXIETY UNSPEC 04/18/2012 CAROLINE MENDOZA MD 300.00 AN ANXIETY UNSPEC 04/18/2012 300.00 AN ANXIETY UNSPEC 04/18/2012 300.00 AN ANXIETY UNSPEC 04/18/2012 300.00 AN ANXIETY UNSPEC 04/18/2012 300.00 AN ANXIETY UNSPEC 04/18/2012 300.00 AN ANXIETY UNSPEC 04/18/2012 300.00 AN ANXIETY UNSPEC 04/18/2012 300.00 AN ANXIETY UNSPEC 04/18/2012 300.00 AN ANXIETY UNSPEC 04/18/2012 300.00 AN ANXIETY UNSPEC 04/18/2012 MARIA DE JESUS BUTLER DO 300 .00 AN ANXIETY UNSPEC 04/18/2012 CAROLINE MENDOZA MD [...] AN ANXIETY UNSPEC 04/18/2012 SHARIF JOHNSON MD 300 .00 AN ANXIETY UNSPEC 04/18/2012 SHARIF JOHNSON MD 300 .00 AN ANXIETY UNSPEC 04/18/2012 SHARIF JOHNSON MD 300 .00 AN ANXIETY UNSPEC 04/18/2012 SHARIF JOHNSON MD 300 .00 AN ANXIETY UNSPEC 04/18/2012 SHARIF JOHNSON MD 300 .00 AN ANXIETY UNSPEC 04/18/2012 BAIG AUBREYDESI 300.00 AN ANXIETY UNSPEC 04/18/2012 SHARIF JOHNSON MD 300 .00 AN ANXIETY UNSPEC 04/18/2012 SHARIF JOHNSON MD 300 .00 AN ANXIETY UNSPEC 04/18/2012 JOVANNI BURGOS DESI CONRAD 300.00 AN ANXIETY UNSPEC 04/18/2012 SHARIF JOHNSON MD 300 .00 AN ANXIETY UNSPEC 04/18/2012 SHARIF JOHNSON MD 300 .00 AN ANXIETY UNSPEC 04/18/2012 MASSIEL VEGA 300.00 AN ANXIETY UNSPEC 04/18/2012 MIKE HAZEL DO 300.00 AN ANXIETY UNSPEC 04/18/2012 SHARIF JOHNSON MD 300 .00 AN ANXIETY UNSPEC 04/18/2012 SHANIQUE VEGA MD 300.0 0 AN ANXIETY UNSPEC 04/18/2012 SHARIF JOHNSON MD 300 .00 AN ANXIETY UNSPEC 04/18/2012 SHARIF JOHNSON MD 300 .00 AN ANXIETY UNSPEC 04/18/2012 MARIA DE JESUS BUTLER DO 300 .00 AN ANXIETY UNSPEC 04/18/2012 SHANIQUE VEGA MD 300.0 0 AN ANXIETY UNSPEC 04/30/2012 300.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 04/30/2012 SHANIQUE VEGA MD 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 04/30/2012 300.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 04/30/2012 MIKE HAZEL DO 300.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 04/30/2012 MIKE HAZEL DO K 300.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 04/30/2012 MARIA DE JESUS BUTLER DO F 300 .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 04/30/2012 CAROLINE MENDOZA MD 300.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 04/30/2012 MARIA DE JESUS BUTLER DO F 300 .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 04/30/2012 CAROLINE MENDOZA MD 300.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 04/30/2012 300.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 04/30/2012 300.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 04/30/2012 300.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 04/30/2012 300.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 04/30/2012 300.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 04/30/2012 300.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 04/30/2012 300.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 04/30/2012 300.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 04/30/2012 300.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 04/30/2012 MARIA DE JESUS BUTLER DO F 300 .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 04/30/2012 CAROLINE MENDOZA MD 300.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 04/30/2012 CAROLINE MENDOZA MD 300.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 04/30/2012 CAROLINE MENDOZA MD 300.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 04/30/2012 DESI BAIG APRN 300.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 04/30/2012 DESI BAIG APRN 300.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 04/30/2012 AUDIE MARC APRN 300.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 04/30/2012 SHAHNAZ MARQUEZ APRN 300.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 04/30/2012 MAX DHILLON APRN 300.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 04/30/2012 MAX DHILLON APRN 300.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 04/30/2012 MIKE HAZEL DO K 300.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 04/30/2012 CAROLINE MENDOZA MD 300.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 04/30/2012 CAROLINE MENDOZA MD 300.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 04/30/2012 SHARIF JOHNSON MD 300 .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 04/30/2012 SHARIF JOHNSON MD 300 .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 04/30/2012 SHARIF JOHNSON MD 300 .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 04/30/2012 SHARIF JOHNSON MD 300 .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 04/30/2012 SHARIF JOHNSON MD N 300 .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 04/30/2012 JOVANNI BURGOS DESI SINGHH 300.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 04/30/2012 SHARIF JOHNSON MD N 300 .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 04/30/2012 SHARIF JOHNSON MD N 300 .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 04/30/2012 JOVANNI BURGOS DESI HOUSTON 300.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 04/30/2012 SHARIF JOHNSON MD N 300 .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 04/30/2012 SHARIF JOHNSON MD 300 .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 04/30/2012 MASSIEL VEGA 300.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 04/30/2012 MIKE HAZEL DO 300.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 04/30/2012 SHARIF JOHNSON MD 300 .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 04/30/2012 SHANIQUE VEGA MD 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 04/30/2012 SHARIF JOHNSON MD N 300 .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 04/30/2012 SHARIF JOHNSON MD 300 .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 04/30/2012 MARIA DE JESUS BUTLER DO 300 .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 04/30/2012 SHANIQUE VEGA MD 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 05/29/2012 307.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 05/29/2012 SHANIQUE VEGA MD 307.4 7 SI DYSSOMNIA NOS 05/29/2012 307.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 05/29/2012 MIKE HAZEL DO 307.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 05/29/2012 MIKE HAZEL DO 307.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 05/29/2012 MARIA DE JESUS BUTLER DO 307 .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 05/29/2012 CAROLINE MENDOZA MD 307.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 05/29/2012 MARIA DE JESUS BUTLER DO 307 .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 05/29/2012 CAROLINE MENDOZA MD 307.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 05/29/2012 307.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 05/29/2012 307.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 05/29/2012 307.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 05/29/2012 307.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 05/29/2012 307.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 05/29/2012 307.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 05/29/2012 307.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 05/29/2012 307.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 05/29/2012 307.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 05/29/2012 MARIA DE JESUS BUTLER DO 307 .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 05/29/2012 CAROLINE MENDOZA MD [...] DHILLON APRN 307.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 05/29/2012 ILIR MIKE VILLALOBOS 307.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 05/29/2012 CAROLINE MENDOZA MD 307.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 05/29/2012 CAROLINE MENDOZA MD 307.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 05/29/2012 SHARIF JOHNSON MD 307 .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 05/29/2012 SHARIF JOHNSON MD 307 .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 05/29/2012 SHARIF JOHNSON MD 307 .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 05/29/2012 SHARIF JOHNSON MD 307 .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 05/29/2012 SHARIF JOHNSON MD 307 .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 05/29/2012 DESI BAIG APRN 307.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 05/29/2012 ELIZABETH ROLDAN, SHARIF N 307 .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 05/29/2012 ELIZABETH ROLDAN, SHARIF Menjivar 307 .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 05/29/2012 DESI BAIG APRN 307.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 05/29/2012 ELIZABETH ROLDAN, SHARIF N 307 .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 05/29/2012 SHARIF JOHNSON MD N 307 .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 05/29/2012 MASSIEL VEGA 307.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 05/29/2012 MIKE HAZEL DO 307.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 05/29/2012 SHARIF JOHNSON MD N 307 .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 05/29/2012 SHANIQUE VEGA MD 307.4 7 SI DYSSOMNIA NOS 05/29/2012 SHARIF JOHNSON MD 307 .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 05/29/2012 SHARIF JOHNSON MD N 307 .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 05/29/2012 MARIA DE JESUS BUTLER DO 307 .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 05/29/2012 SHANIQUE VEGA MD 307.4 7 SI DYSSOMNIA NOS 06/05/2012 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 06/05/2012 V58.69 MED ICATION HIGH RISK 06/05/2012 SHANIQUE VEGA MD 300.2 1 AN PANIC DIS W AGORA 06/05/2012 SHANIQUE VEGA MD V58.6 9 MEDICATION HIGH RISK 06/05/2012 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 06/05/2012 V58.69 MED ICATION HIGH RISK 06/05/2012 HAZEL CHANDA VILLALOBOSA K 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 06/05/2012 HAZEL CHANDA VILLALOBOSA K V58.69 MEDICATION HIGH RISK 06/05/2012 HAZEL CHANDA VILLALOBOSA K 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 06/05/2012 HAZEL DO MIKE K V58.69 MEDICATION HIGH RISK 06/05/2012 MARIA DE JESUS BUTLER DO 300 .21 AN PANIC DIS W AGORA 06/05/2012 MARIA DE JESUS BUTLER DO V58 .69 MEDICATION HIGH RISK 06/05/2012 CAROLINE MENDOZA MD 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 06/05/2012 CAROLINE MENDOZA MD V58.69 MEDICATION HIGH RISK 06/05/2012 MARIA DE JESUS BUTLER DO 300 .21 AN PANIC DIS W AGORA 06/05/2012 MARIA DE JESUS BUTLER DO F V58 .69 MEDICATION HIGH RISK 06/05/2012 CAROLINE MENDOZA MD 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 06/05/2012 CAROLINE MENDOZA MD V58.69 MEDICATION HIGH RISK 06/05/2012 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 06/05/2012 V58.69 MED ICATION HIGH RISK 06/05/2012 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 06/05/2012 V58.69 MED ICATION HIGH RISK 06/05/2012 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 06/05/2012 V58.69 MED ICATION HIGH RISK 06/05/2012 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 06/05/2012 V58.69 MED ICATION HIGH RISK 06/05/2012 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 06/05/2012 V58.69 MED ICATION HIGH RISK 06/05/2012 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 06/05/2012 V58.69 MED ICATION HIGH RISK 06/05/2012 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 06/05/2012 V58.69 MED ICATION HIGH RISK 06/05/2012 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 06/05/2012 V58.69 MED ICATION HIGH RISK 06/05/2012 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 06/05/2012 V58.69 MED ICATION HIGH RISK 06/05/2012 MARIA DE JESUS BUTLER DO F 300 .21 AN PANIC DIS W AGORA 06/05/2012 MARIA DE JESUS BUTLER DO F V58 .69 MEDICATION HIGH RISK 06/05/2012 CAROLINE MENDOZA MD [...] AN PANIC DIS W AGORA 06/05/2012 JOVANNI WOODSN, DESI CONRAD V58.69 MEDICATION HIGH RISK 06/05/2012 JOVANNI WOODSTiara DESI CONRAD 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 06/05/2012 JOVANNI WOODSN, DESI CNORAD V58.69 MEDICATION HIGH RISK 06/05/2012 STEPHEN MARC APRNIA R 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 06/05/2012 TARI BURGOS AUDIE R V58.69 MEDICATION HIGH RISK 06/05/2012 FRANCISCO MARQUEZ APRNA S 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 06/05/2012 FRANCISCO MARQUEZ APRNA S V58.69 MEDICATION HIGH RISK 06/05/2012 MAX DHILLON APRN 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 06/05/2012 MAX DHILLON APRN V58.69 MEDICATION HIGH RISK 06/05/2012 MAX DHILLON APRN 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 06/05/2012 MAX DHILLON APRN V58.69 MEDICATION HIGH RISK 06/05/2012 CHANDA HAZEL DOA K 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 06/05/2012 ILIR VILLALOBOS MIKE K V58.69 MEDICATION HIGH RISK 06/05/2012 CAROLINE MENDOZA MD 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 06/05/2012 CAROLINE MENDOZA MD V58.69 MEDICATION HIGH RISK 06/05/2012 CAROLINE MENDOZA MD 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 06/05/2012 CAROLINE MENDOZA MD V58.69 MEDICATION HIGH RISK 06/05/2012 SHARIF JOHNSON MD 300 .21 AN PANIC DIS W AGORA 06/05/2012 SHARIF JOHNSON MD V58 .69 MEDICATION HIGH RISK 06/05/2012 SHARIF JOHNSON MD 300 .21 AN PANIC DIS W AGORA 06/05/2012 SHARIF JOHNSON MD V58 .69 MEDICATION HIGH RISK 06/05/2012 SHARIF JOHNSON MD N 300 .21 AN PANIC DIS W AGORA 06/05/2012 SHARIF JOHNSON MD N V58 .69 MEDICATION HIGH RISK 06/05/2012 SHARIF JOHNSON MD N 300 .21 AN PANIC DIS W AGORA 06/05/2012 SHARIF JOHNSON MD N V58 .69 MEDICATION HIGH RISK 06/05/2012 SHARIF JOHNSON MD N 300 .21 AN PANIC DIS W AGORA 06/05/2012 SHARIF JOHNSON MD N V58 .69 MEDICATION HIGH RISK 06/05/2012 JOVANNI BURGOS DESI CONRAD 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 06/05/2012 JOVANNI BURGOS DESI CONRAD V58.69 MEDICATION HIGH RISK 06/05/2012 SHARIF JOHNSON MD N 300 .21 AN PANIC DIS W AGORA 06/05/2012 SHARIF JOHNSON MD N V58 .69 MEDICATION HIGH RISK 06/05/2012 SHARIF JOHNSON MD N 300 .21 AN PANIC DIS W AGORA 06/05/2012 SHARIF JOHNSON MD N V58 .69 MEDICATION HIGH RISK 06/05/2012 JOVANNI BURGOS DESI CONRAD 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 06/05/2012 JOVANNI BURGOS DESI CONRAD V58.69 MEDICATION HIGH RISK 06/05/2012 SHARIF JOHNSON MD N 300 .21 AN PANIC DIS W AGORA 06/05/2012 SHARIF JOHNSON MD N V58 .69 MEDICATION HIGH RISK 06/05/2012 SHARIF JOHNSON MD N 300 .21 AN PANIC DIS W AGORA 06/05/2012 SHARIF JOHNSON MD N V58 .69 MEDICATION HIGH RISK 06/05/2012 MASSIEL VEGA 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 06/05/2012 MASSIEL VEGA V58.69 MEDICATION HIGH RISK 06/05/2012 MIKE HAZEL DO 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 06/05/2012 MIKE HAZEL DO K V58.69 MEDICATION HIGH RISK 06/05/2012 SHARIF JOHNSON MD N 300 .21 AN PANIC DIS W AGORA 06/05/2012 SHARIF JOHNSON MD N V58 .69 MEDICATION HIGH RISK 06/05/2012 SHANIQUE VEGA MD 300.2 1 AN PANIC DIS W AGORA 06/05/2012 SHANIQUE VEGA MD V58.6 9 MEDICATION HIGH RISK 06/05/2012 SHARIF JOHNSON MD N 300 .21 AN PANIC DIS W AGORA 06/05/2012 SHARIF JOHNSON MD V58 .69 MEDICATION HIGH RISK 06/05/2012 SHARIF JOHNSON MD N 300 .21 AN PANIC DIS W AGORA 06/05/2012 SHARIF JOHNSON MD V58 .69 MEDICATION HIGH RISK 06/05/2012 MARIA DE JESUS BUTLER DO F 300 .21 AN PANIC DIS W AGORA 06/05/2012 MARIA DE JESUS BUTLER DO V58 .69 MEDICATION HIGH RISK 06/05/2012 SHANIQUE VEGA MD 300.2 1 AN PANIC DIS W AGORA 06/05/2012 SHANIQUE VEGA MD V58.6 9 MEDICATION HIGH RISK 06/10/2012 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 06/10/2012 SHANIQUE VEGA MD 296.2 0 MO DEPRESSIVE SINGLE UNSPECIFIED 06/10/2012 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 06/10/2012 HAZEL DO, MIKE K 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 06/10/2012 HAZEL DO, MIKE K 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 06/10/2012 MARIA DE JESUS BUTLER DO 296 .20 MO DEPRESSIVE SINGLE UNSPECIFIED 06/10/2012 CAROLINE MENDOZA MD 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) 06/10/2012 MARIA DE JESUS BUTLER DO 296 .20 INVOLUTIONAL MELANCHOLIA - (MDD) 06/10/2012 CAROLINE MENDOZA MD 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) 06/10/2012 296.20 INV OLUTIONAL MELANCHOLIA - (MDD) 06/10/2012 296.20 INV OLUTIONAL MELANCHOLIA - (MDD) 06/10/2012 296.20 INV OLUTIONAL MELANCHOLIA - (MDD) 06/10/2012 296.20 INV OLUTIONAL MELANCHOLIA - (MDD) 06/10/2012 296.20 INV OLUTIONAL MELANCHOLIA - (MDD) 06/10/2012 296.20 INV OLUTIONAL MELANCHOLIA - (MDD) 06/10/2012 296.20 INV OLUTIONAL MELANCHOLIA - (MDD) 06/10/2012 296.20 INV OLUTIONAL MELANCHOLIA - (MDD) 06/10/2012 296.20 INV OLUTIONAL MELANCHOLIA - (MDD) 06/10/2012 MARIA DE JESUS BUTLER DO 296 .20 INVOLUTIONAL MELANCHOLIA - (MDD) 06/10/2012 CAROLINE MENDOZA [...] MELANCHOLIA - (MDD) 06/10/2012 SHARIF JOHNSON MD 296 .20 INVOLUTIONAL MELANCHOLIA - (MDD) 06/10/2012 SHARIF JOHNSON MD 296 .20 INVOLUTIONAL MELANCHOLIA - (MDD) 06/10/2012 SHARIF JOHNSON MD 296 .20 INVOLUTIONAL MELANCHOLIA - (MDD) 06/10/2012 SHARIF JOHNSON MD 296 .20 INVOLUTIONAL MELANCHOLIA - (MDD) 06/10/2012 SHARIF JOHNSON MD 296 .20 INVOLUTIONAL MELANCHOLIA - (MDD) 06/10/2012 JOVANNI BURGOS DESI HOUSTON 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) 06/10/2012 SHARIF JOHNSON MD 296 .20 INVOLUTIONAL MELANCHOLIA - (MDD) 06/10/2012 SHARIF JOHNSON MD 296 .20 INVOLUTIONAL MELANCHOLIA - (MDD) 06/10/2012 JOVANNI BURGOS DESI HOUSTON 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) 06/10/2012 SHARIF JOHNSON MD 296 .20 INVOLUTIONAL MELANCHOLIA - (MDD) 06/10/2012 SHARIF JOHNSON MD 296 .20 INVOLUTIONAL MELANCHOLIA - (MDD) 06/10/2012 MASSIEL VEGA 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) 06/10/2012 MIKE HAZEL DO 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) 06/10/2012 SHARIF JOHNSON MD 296 .20 INVOLUTIONAL MELANCHOLIA - (MDD) 06/10/2012 SHANIQUE VEGA MD 296.2 0 INVOLUTIONAL MELANCHOLIA - (MDD) 06/10/2012 SHARIF JOHNSON MD 296 .20 INVOLUTIONAL MELANCHOLIA - (MDD) 06/10/2012 SHARIF JOHNSON MD 296 .20 INVOLUTIONAL MELANCHOLIA - (MDD) 06/10/2012 MARIA DE JESUS BUTLER DO 296 .20 MO DEPRESSIVE SINGLE UNSPECIFIED 06/10/2012 SHANIQUE VEGA MD 296.2 0 INVOLUTIONAL MELANCHOLIA - (MDD) 06/18/2012 300.01 AN PANIC DIS W/O AGORA 06/18/2012 SHANIQUE VEGA MD 300.0 1 AN PANIC DIS W/O AGORA 06/18/2012 300.01 AN PANIC DIS W/O AGORA 06/18/2012 MIKE HAZEL DO 300.01 AN PANIC DIS W/O AGORA 06/18/2012 MIKE HAZEL DO 300.01 AN PANIC DIS W/O AGORA 06/18/2012 MARIA DE JESUS BUTLER DO 300 .01 AN PANIC DIS W/O AGORA 06/18/2012 CAROLINE MENDOZA MD 300.01 AN PANIC DIS W/O AGORA 06/18/2012 MARIA DE JESUS BUTLER DO 300 .01 AN PANIC DIS W/O AGORA 06/18/2012 CAROLINE [...] AGORA 06/18/2012 MARIA DE JESUS BUTLER DO 300 .01 AN PANIC DIS W/O AGORA 06/18/2012 CAROLINE [...] DIS W/O AGORA 06/18/2012 SHARIF JOHNSON MD 300 .01 AN PANIC DIS W/O AGORA 06/18/2012 SHARIF JOHNSON MD N 300 .01 AN PANIC DIS W/O AGORA 06/18/2012 SHARIF JOHNSON MD 300 .01 AN PANIC DIS W/O AGORA 06/18/2012 SHARIF JOHNSON MD N 300 .01 AN PANIC DIS W/O AGORA 06/18/2012 SHARIF JOHNSON MD 300 .01 AN PANIC DIS W/O AGORA 06/18/2012 DESI BAIG APRN 300.01 AN PANIC DIS W/O AGORA 06/18/2012 SHARIF JOHNSON MD 300 .01 AN PANIC DIS W/O AGORA 06/18/2012 SHARIF JOHNSON MD 300 .01 AN PANIC DIS W/O AGORA 06/18/2012 DESI BAIG APRN 300.01 AN PANIC DIS W/O AGORA 06/18/2012 SHARIF JOHNSON MD 300 .01 AN PANIC DIS W/O AGORA 06/18/2012 SHARIF JOHNSON MD 300 .01 AN PANIC DIS W/O AGORA 06/18/2012 MASSIEL VEGA 300.01 AN PANIC DIS W/O AGORA 06/18/2012 MIKE HAZEL DO 300.01 AN PANIC DIS W/O AGORA 06/18/2012 SHARIF JOHNSON MD 300 .01 AN PANIC DIS W/O AGORA 06/18/2012 SHANIQUE VEGA MD 300.0 1 AN PANIC DIS W/O AGORA 06/18/2012 SHARIF JOHNSON MD 300 .01 AN PANIC DIS W/O AGORA 06/18/2012 SHARIF JOHNSON MD 300 .01 AN PANIC DIS W/O AGORA 06/18/2012 MARIA DE JESUS BUTLER DO 300 .01 AN PANIC DIS W/O AGORA 06/18/2012 SHANIQUE VEGA MD 300.0 1 AN PANIC DIS W/O AGORA 06/27/2012 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 06/27/2012 SHANIQUE VEGA MD 296.3 2 MO DEPRESSIVE RECURRENT MODERATE 06/27/2012 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 06/27/2012 HAZEL MIKE VILLALOBOS K 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 06/27/2012 MIKE HAZEL DO K 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 06/27/2012 MARIA DE JESUS BUTLER DO 296 .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 RECURRENT MODERATE 06/27/2012 CAROLINE MENDOZA MD 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 06/27/2012 MARIA DE JESUS BUTLER DO 296 .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 RECURRENT MODERATE 06/27/2012 CAROLINE MENDOZA [...] MODERATE 06/27/2012 MARIA DE JESUS BUTLER DO 296 .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 RECURRENT MODERATE 06/27/2012 CAROLINE MENDOZA MD 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 06/27/2012 CAROLINE MENDOZA MD 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 06/27/2012 CAROLINE MENDOZA MD 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 06/27/2012 JOVANNI BURGOS DESI HOUSTON 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 06/27/2012 JOVANNI BURGOS DESI HOUSTON 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 06/27/2012 AUDIE MARC APRN 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 06/27/2012 SHAHNAZ MARQUEZ APRN S 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 06/27/2012 MAX DHILLON APRN 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 06/27/2012 MAX DHILLON APRN 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 06/27/2012 MIKE HAZEL DO K 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 06/27/2012 CAROLINE MENDOZA MD 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 06/27/2012 CAROLINE MENDOZA MD 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 06/27/2012 SHARIF JOHNSON MD N 296 .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 RECURRENT MODERATE 06/27/2012 ELIZABETH ROLDAN SHARIF N 296 .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 RECURRENT MODERATE 06/27/2012 ELIZABETH ROLDAN SHARIF N 296 .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 RECURRENT MODERATE 06/27/2012 GWEN JOHNSON MDY N 296 .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 RECURRENT MODERATE 06/27/2012 SHARIF JOHNSON MD N 296 .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 RECURRENT MODERATE 06/27/2012 JOVANNI BURGOS DESI CONRAD 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 06/27/2012 ELIZABETH ROLDAN SHARIF N 296 .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 RECURRENT MODERATE 06/27/2012 SHARIF JOHNSON MD N 296 .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 RECURRENT MODERATE 06/27/2012 JOVANNI BURGOS DESI HOUSTON 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 06/27/2012 SHARIF JOHNSON MD N 296 .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 RECURRENT MODERATE 06/27/2012 SHARIF JOHNSON MD N 296 .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 RECURRENT MODERATE 06/27/2012 MASSIEL VEGA 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 06/27/2012 MIKE HAZEL DO K 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 06/27/2012 ELIZABETH ROLDAN SHARIF N 296 .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 RECURRENT MODERATE 06/27/2012 SHANIQUE VEGA MD 296.3 2 MO DEPRESSIVE RECURRENT MODERATE 06/27/2012 ELIZABETH ROLDAN SHARIF N 296 .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 RECURRENT MODERATE 06/27/2012 SHARIF JOHNSON MD N 296 .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 RECURRENT MODERATE 06/27/2012 MARIA DE JESUS BUTLER DO 296 .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 RECURRENT MODERATE 06/27/2012 SHANIQUE VEGA MD 296.3 2 MO DEPRESSIVE RECURRENT MODERATE 09/11/2012 V04.81 FLU DX (3 YRS AND ABOVE, IM) 09/11/2012 SHANIQUE VEGA MD V04.8 1 FLU DX (3 YRS AND ABOVE, IM) 09/11/2012 V04.81 FLU DX (3 YRS AND ABOVE, IM) 09/11/2012 MIKE HAZEL DO V04.81 FLU DX (3 YRS AND ABOVE, IM) 09/11/2012 HAZEL MIKE VILLALOBOS K V04.81 FLU DX (3 YRS AND ABOVE, IM) 09/11/2012 MARIA DE JESUS BUTLER DO V04 .81 FLU DX (3 YRS AND ABOVE, IM) 09/11/2012 CAROLINE MENDOZA MD V04.81 FLU DX (3 YRS AND ABOVE, IM) 09/11/2012 MARIA DE JESUS BUTLER DO V04 .81 FLU DX (3 YRS AND ABOVE, IM) [...] IM) 09/11/2012 MARIA DE JESUS BUTLER DO V04 .81 Vaccines Prophylactic Need Against Influenza 09/11/2012 CAROLINE [...] Need Against Influenza 09/11/2012 SHARIF JOHNSON MD V04 .81 Vaccines Prophylactic Need Against Influenza 09/11/2012 SHARIF JOHNSON MD V04 .81 Vaccines Prophylactic Need Against Influenza 09/11/2012 SHARIF JOHNSON MD V04 .81 Vaccines Prophylactic Need Against Influenza 09/11/2012 SHARIF JOHNSON MD N V04 .81 Vaccines Prophylactic Need Against Influenza 09/11/2012 SHARIF JOHNSON MD V04 .81 Vaccines Prophylactic Need Against Influenza 09/11/2012 DESI BAIG APRNH V04.81 Vaccines Prophylactic Need Against Influenza 09/11/2012 SHARIF JOHNSON MD V04 .81 Vaccines Prophylactic Need Against Influenza 09/11/2012 SHARIF JOHNSON MD V04 .81 Vaccines Prophylactic Need Against Influenza 09/11/2012 DESI BAIG APRN [place] V04.81 Vaccines Prophylactic Need Against Influenza 09/11/2012 SHARIF JOHNSON MD V04 .81 Vaccines Prophylactic Need Against Influenza 09/11/2012 SHARIF JOHNSON MD V04 .81 Vaccines Prophylactic Need Against Influenza 09/11/2012 MASSIEL VEGA V04.81 Vaccines Prophylactic Need Against Influenza 09/11/2012 MIKE HAZEL DO V04.81 Vaccines Prophylactic Need Against Influenza 09/11/2012 SHARIF JOHNSON MD V04 .81 Vaccines Prophylactic Need Against Influenza 09/11/2012 SHANIQUE VEGA MD V04.8 1 Vaccines Prophylactic Need Against Influenza 09/11/2012 SHARIF JOHNSON MD V04 .81 Vaccines Prophylactic Need Against Influenza 09/11/2012 SHARIF JOHNSON MD V04 .81 Vaccines Prophylactic Need Against Influenza 09/11/2012 MARIA DE JESUS BUTLER DO V04 .81 FLU DX (3 YRS AND ABOVE, IM) 09/11/2012 SHANIQUE VEGA MD V04.8 1 Vaccines Prophylactic Need Against Influenza 10/10/2012 Ot 250.00 10/10/2012 Ot 272.4 10/10/2012 Ot 300.00 10/10/2012 Ot 305.1 10/10/2012 Ot 311 10/10/2012 Ot 401.9 10/10/2012 Ot 414.01 10/10/2012 Ot 491.21 10/10/2012 Ot 722.6 10/10/2012 Ot 787.91 10/10/2012 Ot V03.82 10/24/2012 SHANIQUE VEGA MD 401.1 ESSENTIAL HYPERTENSION BENIGN 10/24/2012 SHANIQUE VEGA MD 785.1 palpitations 10/24/2012 401.1 ESSE NTIAL HYPERTENSION BENIGN 10/24/2012 785.1 palp itations 10/24/2012 HAZEL DO, MIKE K 401.1 ESSENTIAL HYPERTENSION BENIGN 10/24/2012 HAZEL DO, MIKE K 785.1 palpitations 10/24/2012 HAZEL DO, MIKE K 401.1 ESSENTIAL HYPERTENSION BENIGN 10/24/2012 HAZEL DO, MIKE K 785.1 palpitations 10/24/2012 WERMARKO MARSHALL DOEN F 401 .1 ESSENTIAL HYPERTENSION BENIGN 10/24/2012 MARIA DE JESUS BUTLER DO F 785 .1 palpitations 10/24/2012 CAROLINE MENDOZA MD 401.1 ESSENTIAL HYPERTENSION BENIGN 10/24/2012 CAROLINE MENDOZA MD 785.1 palpitations 10/24/2012 MARIA DE JESUS BUTLER DO F 401 .1 ESSENTIAL HYPERTENSION BENIGN 10/24/2012 MARIA DE JESUS BUTLER DO F 785 .1 palpitations 10/24/2012 CAROLINE MENDOZA MD 401.1 ESSENTIAL HYPERTENSION BENIGN 10/24/2012 CAROLINE MENDOZA MD 785.1 palpitations 10/24/2012 401.1 ESSE NTIAL HYPERTENSION BENIGN 10/24/2012 785.1 palp itations 10/24/2012 401.1 ESSE NTIAL HYPERTENSION BENIGN 10/24/2012 785.1 palp itations 10/24/2012 401.1 ESSE NTIAL HYPERTENSION BENIGN 10/24/2012 785.1 palp itations 10/24/2012 401.1 ESSE NTIAL HYPERTENSION BENIGN 10/24/2012 785.1 palp itations 10/24/2012 401.1 ESSE NTIAL HYPERTENSION BENIGN 10/24/2012 785.1 palp itations 10/24/2012 401.1 ESSE NTIAL HYPERTENSION BENIGN 10/24/2012 785.1 palp itations 10/24/2012 401.1 ESSE NTIAL HYPERTENSION BENIGN 10/24/2012 785.1 palp itations 10/24/2012 401.1 ESSE NTIAL HYPERTENSION BENIGN 10/24/2012 785.1 palp itations 10/24/2012 401.1 ESSE NTIAL HYPERTENSION BENIGN 10/24/2012 785.1 palp itations 10/24/2012 WERROLANDO DO MARIA DE JESUS F 401 .1 ESSENTIAL HYPERTENSION BENIGN 10/24/2012 WERDER DO, MARIA DE JESUS F 785 .1 palpitations 10/24/2012 CAROLINE MENDOZA MD 401.1 ESSENTIAL HYPERTENSION BENIGN 10/24/2012 CAROLINE MENDOZA MD 785.1 palpitations 10/24/2012 CAROLINE MENDOZA MD 401.1 ESSENTIAL HYPERTENSION BENIGN 10/24/2012 CAROLINE MENDOZA MD 785.1 palpitations 10/24/2012 CAROLINE MENDOZA MD 401.1 ESSENTIAL HYPERTENSION BENIGN 10/24/2012 CAROLINE MENDOZA MD 785.1 palpitations 10/24/2012 JOVANNI BURGOS DESI SINGHH 401.1 ESSENTIAL HYPERTENSION BENIGN 10/24/2012 BAIGLUDA BURGOS, DESI SINGHH 785.1 palpitations 10/24/2012 BAIG APRN, DESI SINGHH 401.1 ESSENTIAL HYPERTENSION BENIGN 10/24/2012 BAIG AUBREY DESI CONRAD 785.1 palpitations 10/24/2012 STEPHEN MARC APRNIA R 401.1 ESSENTIAL HYPERTENSION BENIGN 10/24/2012 BELÉN MARC APRNRICIA R 785.1 palpitations 10/24/2012 FRANCISCO MARQUEZ APRNA S 401.1 ESSENTIAL HYPERTENSION BENIGN 10/24/2012 JIMMY BURGOS SHAHNAZ S 785.1 palpitations 10/24/2012 MAX DHILLON APRN T 40 1.1 ESSENTIAL HYPERTENSION BENIGN 10/24/2012 MAX DHILLON APRN T 78 5.1 palpitations 10/24/2012 MAX DHILLON APRN T 40 1.1 ESSENTIAL HYPERTENSION BENIGN 10/24/2012 MAX DHILLON APRN T 78 5.1 palpitations 10/24/2012 HAZEL DO, MIKE K 401.1 ESSENTIAL HYPERTENSION BENIGN 10/24/2012 HAZEL DO, MIKE K 785.1 palpitations 10/24/2012 CAROLINE MENDOZA MD 401.1 ESSENTIAL HYPERTENSION BENIGN 10/24/2012 CAROLINE MENDOZA MD 785.1 palpitations 10/24/2012 CAROLINE MENDOZA MD 401.1 ESSENTIAL HYPERTENSION BENIGN 10/24/2012 CAROLINE MENDOZA MD 785.1 palpitations 10/24/2012 SHARIF JOHNSON MD N 401 .1 ESSENTIAL HYPERTENSION BENIGN 10/24/2012 SHARIF JOHNSON MD N 785 .1 palpitations 10/24/2012 SHARIF JOHNSON MD N 401 .1 ESSENTIAL HYPERTENSION BENIGN 10/24/2012 SHARIF JOHNSON MD N 785 .1 palpitations 10/24/2012 SHARIF JOHNSON MD N 401 .1 ESSENTIAL HYPERTENSION BENIGN 10/24/2012 SHARIF JOHNSON MD N 785 .1 palpitations 10/24/2012 SHARIF JOHNSON MD N 401 .1 ESSENTIAL HYPERTENSION BENIGN 10/24/2012 SHARIF JOHNSON MD N 785 .1 palpitations 10/24/2012 SHARIF JOHNSON MD N 401 .1 ESSENTIAL HYPERTENSION BENIGN 10/24/2012 GWEN JOHNSON MDY N 785 .1 palpitations 10/24/2012 DESI BAIG APRN 401.1 ESSENTIAL HYPERTENSION BENIGN 10/24/2012 DESI BAIG APRN 785.1 palpitations 10/24/2012 SHARIF JOHNSON MD N 401 .1 ESSENTIAL HYPERTENSION BENIGN 10/24/2012 SHARIF JOHNSON MD N 785 .1 palpitations 10/24/2012 SHARIF JOHNSON MD N 401 .1 ESSENTIAL HYPERTENSION BENIGN 10/24/2012 SHARIF JOHNSON MD N 785 .1 palpitations 10/24/2012 DESI BAIG APRN 401.1 ESSENTIAL HYPERTENSION BENIGN 10/24/2012 DESI BAIG APRN 785.1 palpitations 10/24/2012 SHARIF JOHNSON MD N 401 .1 ESSENTIAL HYPERTENSION BENIGN 10/24/2012 SHARIF JOHNSON MD N 785 .1 palpitations 10/24/2012 GWEN JOHNSON MDY N 401 .1 ESSENTIAL HYPERTENSION BENIGN 10/24/2012 SHARIF JOHNSON MD N 785 .1 palpitations 10/24/2012 JANINA SUPERVISOR LAMP SHADES, MASSIEL M 401.1 ESSENTIAL HYPERTENSION BENIGN 10/24/2012 JANINA SUPERVISOR LAMP SHADES, MASSIEL M 785.1 palpitations 10/24/2012 HAZEL MIKE VILLALOBOS K 401.1 ESSENTIAL HYPERTENSION BENIGN 10/24/2012 HAZEL DO, MIKE K 785.1 palpitations 10/24/2012 SHARIF JOHNSON MD 401 .1 ESSENTIAL HYPERTENSION BENIGN 10/24/2012 SHARIF JOHNSON MD 785 .1 palpitations 10/24/2012 SHANIQUE VEGA MD 401.1 ESSENTIAL HYPERTENSION BENIGN 10/24/2012 SHANIQUE VEGA MD 785.1 palpitations 10/24/2012 SHARIF JOHNSON MD 401 .1 ESSENTIAL HYPERTENSION BENIGN 10/24/2012 SHARIF JOHNSON MD 785 .1 palpitations 10/24/2012 SHARIF JOHNSON MD 401 .1 ESSENTIAL HYPERTENSION BENIGN 10/24/2012 SHARIF JOHNSON MD 785 .1 palpitations 10/24/2012 SHANIQUE VEGA MD 401.1 ESSENTIAL HYPERTENSION BENIGN 10/24/2012 SHANIQUE VEGA MD 785.1 palpitations 12/18/2012 CARRIE VILLALOBOS, MARIA DE JESUS F 272 .4 HYPERLIPIDEMIA 12/18/2012 CARRIE VILLALOBOS, MARIA DE JESUS F 790 .29 HYPERGLYCEMIA 12/18/2012 CAROLINE MENDOZA MD 272.4 HYPERLIPIDEMIA 12/18/2012 CAROLINE MENDOZA MD 790.29 HYPERGLYCEMIA 12/18/2012 CARRIE VILLALOBOS MARIA DE JESUS F 272 .4 HYPERLIPIDEMIA 12/18/2012 CARRIE VILLALOBOS MARIA DE JESUS F 790 .29 HYPERGLYCEMIA 12/18/2012 CAROLINE MENDOZA MD 272.4 HYPERLIPIDEMIA 12/18/2012 CAROLINE MENDOZA MD 790.29 HYPERGLYCEMIA 12/18/2012 272.4 HYPE RLIPIDEMIA 12/18/2012 790.29 HYP ERGLYCEMIA 12/18/2012 272.4 HYPE RLIPIDEMIA 12/18/2012 790.29 HYP ERGLYCEMIA 12/18/2012 272.4 HYPE RLIPIDEMIA 12/18/2012 790.29 HYP ERGLYCEMIA 12/18/2012 272.4 HYPE RLIPIDEMIA 12/18/2012 790.29 HYP ERGLYCEMIA 12/18/2012 272.4 HYPE RLIPIDEMIA 12/18/2012 790.29 HYP ERGLYCEMIA 12/18/2012 272.4 HYPE RLIPIDEMIA 12/18/2012 790.29 HYP ERGLYCEMIA 12/18/2012 272.4 HYPE RLIPIDEMIA 12/18/2012 790.29 HYP ERGLYCEMIA 12/18/2012 272.4 HYPE RLIPIDEMIA 12/18/2012 790.29 HYP ERGLYCEMIA 12/18/2012 272.4 HYPE RLIPIDEMIA 12/18/2012 790.29 HYP ERGLYCEMIA 12/18/2012 WERDER DO, MARIA DE JESUS F 272 .4 HYPERLIPIDEMIA 12/18/2012 WERDER DO, MARIA DE JESUS F 790 .29 HYPERGLYCEMIA 12/18/2012 CAROLINE MENDOZA MD 272.4 HYPERLIPIDEMIA 12/18/2012 CAROLINE MENDOZA MD M 790.29 HYPERGLYCEMIA 12/18/2012 CAROLINE MENDOZA MD M 272.4 HYPERLIPIDEMIA 12/18/2012 CAROLINE MENDOZA MD M 790.29 HYPERGLYCEMIA 12/18/2012 CAROLINE MENDOZA MD 272.4 HYPERLIPIDEMIA 12/18/2012 CAROLINE MENDOZA MD M 790.29 HYPERGLYCEMIA 12/18/2012 BAIGLUDA BURGOS, DESI CONRAD 272.4 HYPERLIPIDEMIA 12/18/2012 BAIGLUDA BURGOS, DSEI CONRAD 790.29 HYPERGLYCEMIA 12/18/2012 BAIG APRN, DESI CONRAD 272.4 HYPERLIPIDEMIA 12/18/2012 BAIG AUBREY, DESI CONRAD 790.29 HYPERGLYCEMIA 12/18/2012 TARI BURGOS, AUDIE R 272.4 HYPERLIPIDEMIA 12/18/2012 TARI BURGOS AUDIE R 790.29 HYPERGLYCEMIA 12/18/2012 JIMMY BURGOS, SHAHNAZ S 272.4 HYPERLIPIDEMIA 12/18/2012 JIMMY BURGOS, SHAHNAZ S 790.29 HYPERGLYCEMIA 12/18/2012 MAX DHILLON APRN T 27 2.4 HYPERLIPIDEMIA 12/18/2012 MAX DHILLON APRN T 790.29 HYPERGLYCEMIA 12/18/2012 MAX DHILLON APRN T 27 2.4 HYPERLIPIDEMIA 12/18/2012 MAX DHILLON APRN T 790.29 HYPERGLYCEMIA 12/18/2012 HAZEL DO, MIKE K 272.4 HYPERLIPIDEMIA 12/18/2012 HAZEL DO, MIKE K 790.29 HYPERGLYCEMIA 12/18/2012 CAROLINE MENDOZA MD 272.4 HYPERLIPIDEMIA 12/18/2012 CAROLINE MENDOZA MD M 790.29 HYPERGLYCEMIA 12/18/2012 CAROLINE MENDOZA MD 272.4 HYPERLIPIDEMIA 12/18/2012 CAROLINE MENDOZA MD M 790.29 HYPERGLYCEMIA 12/18/2012 ELIZABETH ROLDAN, SHARIF N 272 .4 HYPERLIPIDEMIA 12/18/2012 GWEN JOHNSON MDY N 790 .29 HYPERGLYCEMIA 12/18/2012 ELIZABETH ROLDAN, SHARIF N 272 .4 HYPERLIPIDEMIA 12/18/2012 ELIZABETH ROLDAN, SHARIF N 790 .29 HYPERGLYCEMIA 12/18/2012 ELIZABETH ROLDAN, SHARIF N 272 .4 HYPERLIPIDEMIA 12/18/2012 GWEN JOHNSON MDY N 790 .29 HYPERGLYCEMIA 12/18/2012 SHARIF JOHNOSN MD N 272 .4 HYPERLIPIDEMIA 12/18/2012 GWEN JOHNSON MDY N 790 .29 HYPERGLYCEMIA 12/18/2012 SHARIF JOHNSON MD N 272 .4 HYPERLIPIDEMIA 12/18/2012 GWEN JOHNSON MDY N 790 .29 HYPERGLYCEMIA 12/18/2012 JOVANNI BURGOS DESI HOUSTON 272.4 HYPERLIPIDEMIA 12/18/2012 JOVANNI BURGOS [facility] 790.29 HYPERGLYCEMIA 12/18/2012 SHARIF JOHNSON MD N 272 .4 HYPERLIPIDEMIA 12/18/2012 GWEN JOHNSON MDY N 790 .29 HYPERGLYCEMIA 12/18/2012 SHARIF JOHNSON MD N 272 .4 HYPERLIPIDEMIA 12/18/2012 GWEN JOHNSON MDY N 790 .29 HYPERGLYCEMIA 12/18/2012 JOVANNI BURGOS [facility] 272.4 HYPERLIPIDEMIA 12/18/2012 JOVANNI BURGOS [facility] 790.29 HYPERGLYCEMIA 12/18/2012 ELIZABETH ROLDAN, SHARIF N 272 .4 HYPERLIPIDEMIA 12/18/2012 GWEN JOHNSON MDY N 790 .29 HYPERGLYCEMIA 12/18/2012 ELIZABETH ROLDAN, SHARIF N 272 .4 HYPERLIPIDEMIA 12/18/2012 ELIZABETH ROLDAN, SHARIF N 790 .29 HYPERGLYCEMIA 12/18/2012 MASSIEL VEGA M 272.4 HYPERLIPIDEMIA 12/18/2012 MASSIEL VEGA M 790.29 HYPERGLYCEMIA 12/18/2012 HAZEL DO, MIKE K 272.4 HYPERLIPIDEMIA 12/18/2012 MIKE HAZEL DO K 790.29 HYPERGLYCEMIA 12/18/2012 SHARIF JOHNSON MD N 272 .4 HYPERLIPIDEMIA 12/18/2012 SHARIF JOHNSON MD N 790 .29 HYPERGLYCEMIA 12/18/2012 SHANIQUE VEGA MD 272.4 HYPERLIPIDEMIA 12/18/2012 SHANIQUE VEGA MD 790.2 9 HYPERGLYCEMIA 12/18/2012 SHARIF JOHNSON MD N 272 .4 HYPERLIPIDEMIA 12/18/2012 SHARIF JOHNSON MD N 790 .29 HYPERGLYCEMIA 12/18/2012 SHARIF JOHNSON MD N 272 .4 HYPERLIPIDEMIA 12/18/2012 SHARIF JOHNSON MD N 790 .29 HYPERGLYCEMIA 12/18/2012 SHANIQUE VEGA MD 272.4 HYPERLIPIDEMIA 12/18/2012 SHANIQUE VEGA MD 790.2 9 HYPERGLYCEMIA 05/06/2013 728.85 SPA SM OF MUSCLE 05/06/2013 728.85 SPA SM OF MUSCLE 05/06/2013 728.85 SPA SM OF MUSCLE 05/06/2013 728.85 SPA SM OF MUSCLE 05/06/2013 728.85 SPA SM OF MUSCLE 05/06/2013 728.85 SPA SM OF MUSCLE 05/06/2013 728.85 SPA SM OF MUSCLE 05/06/2013 MARIA DE JESUS BUTLER DO 728 .85 SPASM OF MUSCLE 05/06/2013 CAROLINE MENDOZA MD 728.85 SPASM OF MUSCLE 05/06/2013 CRAOLINE MENDOZA MD 728.85 SPASM OF MUSCLE 05/06/2013 [...] SPASM OF MUSCLE 05/06/2013 SHARIF JOHNSON MD N 728 .85 SPASM OF MUSCLE 05/06/2013 SHARIF JOHNSON MD N 728 .85 SPASM OF MUSCLE 05/06/2013 SHARIF JOHNSON MD N 728 .85 SPASM OF MUSCLE 05/06/2013 SHARIF JOHNSON MD N 728 .85 SPASM OF MUSCLE 05/06/2013 SHARIF JOHNSON MD N 728 .85 SPASM OF MUSCLE 05/06/2013 JOVANNI BURGOS, DESI CONRAD 728.85 SPASM OF MUSCLE 05/06/2013 SHARIF JOHNSON MD N 728 .85 SPASM OF MUSCLE 05/06/2013 SHARIF JOHNSON MD N 728 .85 SPASM OF MUSCLE 05/06/2013 JOVANNI BURGOS, DESI CONRAD 728.85 SPASM OF MUSCLE 05/06/2013 SHARIF JOHNSON MD N 728 .85 SPASM OF MUSCLE 05/06/2013 SHARIF JOHNSON MD N 728 .85 SPASM OF MUSCLE 05/06/2013 MASSIEL VEGA 728.85 SPASM OF MUSCLE 05/06/2013 MIKE HAZEL DO 728.85 SPASM OF MUSCLE 05/06/2013 SHARIF JOHNSON MD N 728 .85 SPASM OF MUSCLE 05/06/2013 SHANIQUE VEGA MD 728.8 5 SPASM OF MUSCLE 05/06/2013 SHARIF JOHNSON MD N 728 .85 SPASM OF MUSCLE 05/06/2013 SHARIF JOHNSON MD N 728 .85 SPASM OF MUSCLE 05/06/2013 SHANIQUE VEGA MD 728.8 5 SPASM OF MUSCLE 06/05/2013 338.29 CHR ONIC PAIN 06/05/2013 338.29 CHR ONIC PAIN 06/05/2013 338.29 CHR ONIC PAIN 06/05/2013 338.29 CHR ONIC PAIN 06/05/2013 338.29 CHR ONIC PAIN 06/05/2013 MARIA DE JESUS BUTLER DO 338 .29 CHRONIC PAIN 06/05/2013 CAROLINE MENDOZA MD 338.29 CHRONIC PAIN 06/05/2013 CAROLINE MENDOZA MD 338.29 CHRONIC PAIN 06/05/2013 CAROLINE MENDOZA MD 338.29 CHRONIC PAIN 06/05/2013 JOVANNI BURGOS DESI CONRAD 338.29 CHRONIC PAIN 06/05/2013 JOVANNI BURGOS DESI CONRAD 338.29 CHRONIC PAIN 06/05/2013 TARI BURGOS AUDIE R 338.29 CHRONIC PAIN 06/05/2013 JIMMY BURGOS, SHAHNAZ S 338.29 CHRONIC PAIN 06/05/2013 MAX DHILLON APRN T 338.29 CHRONIC PAIN 06/05/2013 JACQUIE BURGOS MAX T 338.29 CHRONIC PAIN 06/05/2013 MIKE HAZEL DO K 338.29 CHRONIC PAIN 06/05/2013 CAROLINE MENDOZA MD 338.29 CHRONIC PAIN 06/05/2013 CAROLINE MENDOZA MD 338.29 CHRONIC PAIN 06/05/2013 SHARIF JOHNSON MD 338 .29 CHRONIC PAIN 06/05/2013 SHARIF JOHNSON MD 338 .29 CHRONIC PAIN 06/05/2013 SHARIF JOHNSON MD 338 .29 CHRONIC PAIN 06/05/2013 SHARIF JOHNSON MD N 338 .29 CHRONIC PAIN 06/05/2013 SHARIF JOHNSON MD N 338 .29 CHRONIC PAIN 06/05/2013 JOVANNI BURGOS DESI CONRAD 338.29 CHRONIC PAIN 06/05/2013 SHARIF JOHNSON MD N 338 .29 CHRONIC PAIN 06/05/2013 SHARIF JOHNSON MD N 338 .29 CHRONIC PAIN 06/05/2013 JOVANNI BURGOS DESI CONRAD 338.29 CHRONIC PAIN 06/05/2013 SHARIF JOHNSON MD N 338 .29 CHRONIC PAIN 06/05/2013 SHARIF JOHNSON MD N 338 .29 CHRONIC PAIN 06/05/2013 MASSIEL VEGA 338.29 CHRONIC PAIN 06/05/2013 MIKE HAZEL DO K 338.29 CHRONIC PAIN 06/05/2013 SHARIF JOHNSON MD N 338 .29 CHRONIC PAIN 06/05/2013 SHANIQUE VEGA MD 338.2 9 CHRONIC PAIN 06/05/2013 SHARIF JOHNSON MD 338 .29 CHRONIC PAIN 06/05/2013 SHARIF JOHNSON MD 338 .29 CHRONIC PAIN 06/05/2013 SHANIQUE VEGA MD 338.2 9 CHRONIC PAIN 07/01/2013 491.21 BRO NCHITIS AECB 07/01/2013 491.21 BRO NCHITIS AECB 07/01/2013 491.21 BRO NCHITIS AECB 07/01/2013 491.21 BRO NCHITIS AECB 07/01/2013 MARIA DE JESUS BUTLER DO 491 .21 BRONCHITIS AECB 07/01/2013 CAROLINE MENDOZA MD 491.21 [...] MAX DHILLON APRN 491.21 BRONCHITIS AECB 07/01/2013 MIKE HAZEL DO 491.21 BRONCHITIS AECB 07/01/2013 CAROLINE MENDOZA MD 491.21 BRONCHITIS AECB 07/01/2013 CAROLINE MENDOZA MD 491.21 BRONCHITIS AECB 07/01/2013 SHARIF JOHNSON MD N 491 .21 BRONCHITIS AECB 07/01/2013 SHAIRF JOHNSON MD N 491 .21 BRONCHITIS AECB 07/01/2013 SHARIF JOHNSON MD N 491 .21 BRONCHITIS AECB 07/01/2013 SHARIF JOHNSON MD N 491 .21 BRONCHITIS AECB 07/01/2013 SHARIF JOHNSON MD N 491 .21 BRONCHITIS AECB 07/01/2013 DESI BAIG APRN 491.21 BRONCHITIS AECB 07/01/2013 SHARIF JOHNSON MD N 491 .21 BRONCHITIS AECB 07/01/2013 SHARIF JOHNSON MD N 491 .21 BRONCHITIS AECB 07/01/2013 DESI BAIG APRN 491.21 BRONCHITIS AECB 07/01/2013 ELIZABETH ROLDAN, SHARIF N 491 .21 BRONCHITIS AECB 07/01/2013 ELIZABETH ROLDAN, SHARIF N 491 .21 BRONCHITIS AECB 07/01/2013 MASSIEL VEGA 491.21 BRONCHITIS AECB 07/01/2013 MIKE HAZEL DO Dionne 491.21 BRONCHITIS AECB 07/01/2013 ELIZABETH ROLDAN, SHARIF N 491 .21 BRONCHITIS AECB 07/01/2013 SHANIQUE VEGA MD 491.2 1 BRONCHITIS AECB 07/01/2013 ELIZABETH ROLDAN, SHARIF N 491 .21 BRONCHITIS AECB 07/01/2013 ELIZABETH ROLDAN, SHARIF N 491 .21 BRONCHITIS AECB 07/01/2013 SHANIQUE VEGA MD 491.2 1 BRONCHITIS AECB 07/09/2013 SHANIQUE VEGA MD Ot 272 .4 HYPERLIPIDEMIA NEC/NOS 07/09/2013 SHANIQUE VEGA MD Ot 300.00 ANXIETY STATE NOS 07/09/2013 SHANIQUE VEGA MD Ot 305 .1 TOBACCO USE DISORDER 07/09/2013 SHANIQUE VEGA MD Ot 311 DEPRESSIVE DISORDER NEC 07/09/2013 SHANIQUE VEGA MD Ot 338.29 OTHER CHRONIC PAIN 07/09/2013 SHANIQUE VEGA MD Ot 401 .9 HYPERTENSION NOS 07/09/2013 SHANIQUE VEGA MD Ot 414.01 CORONARY ATHEROSCLEROSIS OF [place] CORON 07/09/2013 SHANIQUE VEGA MD Ot 491.21 OBSTR CHRONIC BRONCHITIS, W (ACUTE) EXAC 07/09/2013 SHANIQUE VEGA MD Ot 724 .2 LUMBAGO 07/09/2013 SHANIQUE VEGA MD Ot 790.29 OTHER ABNORMAL GLUCOSE 07/09/2013 SHANIQUE VEGA MD Ot E932.0 ADV EFF CORTICOSTEROIDS 09/22/2013 CAROLINE MENDOZA MD 271.3 GLUCOSE INTOLERANCE 09/22/2013 CAROLINE MENDOZA MD V05.8 ZOSTAVAX DX 09/22/2013 DESI BAIG APRN 271.3 GLUCOSE INTOLERANCE 09/22/2013 DESI BAIG APRN V05.8 ZOSTAVAX DX 09/22/2013 DESI BAIG APRN 271.3 GLUCOSE INTOLERANCE 09/22/2013 BAIGLUDA BURGOS DESI CONRAD V05.8 ZOSTAVAX DX 09/22/2013 TARI BURGOS, AUDIE R 271.3 GLUCOSE INTOLERANCE 09/22/2013 MARC BLOOM CONVEYOR OPERATOR, AUDIE R V05.8 ZOSTAVAX DX 09/22/2013 JIMMY BURGOS, SHAHNAZ S 271.3 GLUCOSE INTOLERANCE 09/22/2013 JIMMY BURGOS, SHAHNAZ S V05.8 ZOSTAVAX DX 09/22/2013 MAX DHILLON APRN T 27 1.3 GLUCOSE INTOLERANCE 09/22/2013 JACQUIE BUGROS, MAX T V0 5.8 ZOSTAVAX DX 09/22/2013 JACQUIE BURGOS, MAX T 27 1.3 GLUCOSE INTOLERANCE 09/22/2013 JACQUIE BURGOS, MAX T V0 5.8 ZOSTAVAX DX 09/22/2013 HAZEL DO, MIKE K 271.3 GLUCOSE INTOLERANCE 09/22/2013 HAZEL DO, MIKE K V05.8 ZOSTAVAX DX 09/22/2013 CAROLINE MENDOZA MD 271.3 GLUCOSE INTOLERANCE 09/22/2013 CAROLINE MENDOZA MD V05.8 ZOSTAVAX DX 09/22/2013 CAROLINE MENDOZA MD 271.3 GLUCOSE INTOLERANCE 09/22/2013 CAROLINE MENDOZA MD V05.8 ZOSTAVAX DX 09/22/2013 SHARIF JOHNSON MD 271 .3 GLUCOSE INTOLERANCE 09/22/2013 SHARIF JOHNSON MD V05 .8 ZOSTAVAX DX 09/22/2013 SHARIF JOHNSON MD 271 .3 GLUCOSE INTOLERANCE 09/22/2013 SHARIF JOHNSON MD V05 .8 ZOSTAVAX DX 09/22/2013 SHARIF JOHNSON MD 271 .3 GLUCOSE INTOLERANCE 09/22/2013 SHARIF JOHNSON MD V05 .8 ZOSTAVAX DX 09/22/2013 SHARIF JOHNSON MD 271 .3 GLUCOSE INTOLERANCE 09/22/2013 SHARIF JOHNSON MD V05 .8 ZOSTAVAX DX 09/22/2013 SHARIF JOHNSON MD 271 .3 GLUCOSE INTOLERANCE 09/22/2013 SHARIF JOHNSON MD V05 .8 ZOSTAVAX DX 09/22/2013 JOVANNI BURGOS DESI CONRAD 271.3 GLUCOSE INTOLERANCE 09/22/2013 JOVANNI WOODSN, DESI CONRAD V05.8 ZOSTAVAX DX 09/22/2013 SHARIF JOHNSON MD 271 .3 GLUCOSE INTOLERANCE 09/22/2013 SHARIF JOHNSON MD V05 .8 ZOSTAVAX DX 09/22/2013 SHARIF JOHNSON MD 271 .3 GLUCOSE INTOLERANCE 09/22/2013 SHARIF JOHNSON MD V05 .8 ZOSTAVAX DX 09/22/2013 BAIGLUDA BURGOS, DESI CONRAD 271.3 GLUCOSE INTOLERANCE 09/22/2013 JOVANNI AUBREY, DESI CONRAD V05.8 ZOSTAVAX DX 09/22/2013 SHARIF JOHNSON MD 271 .3 GLUCOSE INTOLERANCE 09/22/2013 SHARIF JOHNSON MD V05 .8 ZOSTAVAX DX 09/22/2013 SHARIF JOHNSON MD 271 .3 GLUCOSE INTOLERANCE 09/22/2013 SHARIF JOHNSON MD V05 .8 ZOSTAVAX DX 09/22/2013 JANINA SUPERVISOR LAMP SHADES, MASSIEL M 271.3 GLUCOSE INTOLERANCE 09/22/2013 JANINA SUPERVISOR LAMP SHADES, MASSIEL M V05.8 ZOSTAVAX DX 09/22/2013 HAZEL DO, MIKE K 271.3 GLUCOSE INTOLERANCE 09/22/2013 HAZEL DO, MIKE K V05.8 ZOSTAVAX DX 09/22/2013 SHARIF JOHNSON MD 271 .3 GLUCOSE INTOLERANCE 09/22/2013 SHARIF JOHNSON MD V05 .8 ZOSTAVAX DX 09/22/2013 SHANIQUE VEGA MD 271.3 GLUCOSE INTOLERANCE 09/22/2013 SHANIQUE VEGA MD V05.8 ZOSTAVAX DX 09/22/2013 SHARIF JOHNSON MD 271 .3 GLUCOSE INTOLERANCE 09/22/2013 SHARIF JOHNSON MD V05 .8 ZOSTAVAX DX 09/22/2013 SHARIF JOHNSON MD 271 .3 GLUCOSE INTOLERANCE 09/22/2013 SHARIF JOHNSON MD V05 .8 ZOSTAVAX DX 09/22/2013 SHANIQUE VEGA MD 271.3 GLUCOSE INTOLERANCE 09/22/2013 SHANIQUE VEGA MD V05.8 ZOSTAVAX DX 11/09/2013 TARI WOODSN, AUDIE R 786.07 WHEEZING 11/09/2013 TARI WOODSN, AUDIE R 786.2 COUGH 11/09/2013 MARC BLOOM CONVEYOR OPERATOR, AUDIE R V65.42 COUNSELING - SMOKING CESSATION 11/09/2013 JIMMY BLOOM CONVEYOR OPERATOR, SHAHNAZ S 786.07 WHEEZING 11/09/2013 JIMMY BLOOM CONVEYOR OPERATOR, SHAHNAZ S 786.2 COUGH 11/09/2013 JIMMY BLOOM CONVEYOR OPERATOR, SHAHNAZ S V65.42 COUNSELING - SMOKING CESSATION 11/09/2013 JACQUIE BURGOS MAX T 786.07 WHEEZING 11/09/2013 JACQUIE BURGOS, MAX T 78 6.2 COUGH 11/09/2013 JACQUIE BURGOS MAX T V65.42 COUNSELING - SMOKING CESSATION 11/09/2013 JACQUIE BURGOS MAX T 786.07 WHEEZING 11/09/2013 JACQUIE BURGOS MAX T 78 6.2 COUGH 11/09/2013 JACQUIE BURGOS MAX T V65.42 COUNSELING - SMOKING CESSATION 11/09/2013 HAZEL [...] SMOKING CESSATION 11/09/2013 SHARIF JOHNSON MD N 786 .07 WHEEZING 11/09/2013 SHARIF JOHNSON MD 786 .2 COUGH 11/09/2013 SHARIF JOHNSON MD V65 .42 COUNSELING - SMOKING CESSATION 11/09/2013 SHARIF JOHNSON MD N 786 .07 WHEEZING 11/09/2013 SHARIF JOHNSON MD N 786 .2 COUGH 11/09/2013 SHARIF JOHNSON MD V65 .42 COUNSELING - SMOKING CESSATION 11/09/2013 ELIZABETH MD, SHARIF N 786 .07 WHEEZING 11/09/2013 SHARIF JOHNSON MD N 786 .2 COUGH 11/09/2013 SHARIF JOHNSON MD N V65 .42 COUNSELING - SMOKING CESSATION 11/09/2013 SHARIF JOHNSON MD N 786 .07 WHEEZING 11/09/2013 SHARIF JOHNSON MD N 786 .2 COUGH 11/09/2013 GWEN JOHNSON MDY N V65 .42 COUNSELING - SMOKING CESSATION 11/09/2013 SHARIF JOHNSON MD N 786 .07 WHEEZING 11/09/2013 SHARIF JOHSNON MD N 786 .2 COUGH 11/09/2013 GWEN JOHNSON MDY N V65 .42 COUNSELING - SMOKING CESSATION 11/09/2013 DESI BAIG APRN 786.07 WHEEZING 11/09/2013 JOVANNI BURGOS DESI [place] 786.2 COUGH 11/09/2013 JOVANNI BURGOS [place] V65.42 COUNSELING - SMOKING CESSATION 11/09/2013 SHARIF JOHNSON MD N 786 .07 WHEEZING 11/09/2013 SHARIF JOHNSON MD N 786 .2 COUGH 11/09/2013 GWEN JOHNSON MDY N V65 .42 COUNSELING - SMOKING CESSATION 11/09/2013 SHARIF JOHNSON MD N 786 .07 WHEEZING 11/09/2013 SHARIF JOHNSON MD N 786 .2 COUGH 11/09/2013 GWEN JOHNSON MDY N V65 .42 COUNSELING - SMOKING CESSATION 11/09/2013 DESI BAIG APRN 786.07 WHEEZING 11/09/2013 DESI BAIG APRN 786.2 COUGH 11/09/2013 DESI BAIG APRN V65.42 COUNSELING - SMOKING CESSATION 11/09/2013 SHARIF JOHNSON MD N 786 .07 WHEEZING 11/09/2013 SHARIF JOHNSON MD N 786 .2 COUGH 11/09/2013 SHARIF JOHNSON MD N V65 .42 COUNSELING - SMOKING CESSATION 11/09/2013 GWEN JOHNSON MDY N 786 .07 WHEEZING 11/09/2013 GWEN JOHNSON MDY N 786 .2 COUGH 11/09/2013 GWEN JOHNSON MDY N V65 .42 COUNSELING - SMOKING CESSATION 11/09/2013 MASSIEL VEGA 786.07 WHEEZING 11/09/2013 JANINA SUPERVISOR LAMP SHADES, MASSIEL M 786.2 COUGH 11/09/2013 JANINA SUPERVISOR LAMP SHADES, MASSIEL M V65.42 COUNSELING - SMOKING CESSATION 11/09/2013 HAZEL DO, MIKE K 786.07 WHEEZING 11/09/2013 HAZEL DO, MIKE K 786.2 COUGH 11/09/2013 HAZEL DO, MIKE K V65.42 COUNSELING - SMOKING CESSATION 11/09/2013 SHARIF JOHNSON MD 786 .07 WHEEZING 11/09/2013 SHARIF JOHNSON MD N 786 .2 COUGH 11/09/2013 SHARIF JOHNSON MD V65 .42 COUNSELING - SMOKING CESSATION 11/09/2013 SHANIQUE VEGA MD 786.0 7 WHEEZING 11/09/2013 SHANIQUE VEGA MD 786.2 COUGH 11/09/2013 SHANIQUE VEAG MD V65.4 2 COUNSELING - SMOKING CESSATION 11/09/2013 SHARIF JOHNSON MD 786 .07 WHEEZING 11/09/2013 SHARIF JOHNSON MD 786 .2 COUGH 11/09/2013 SHARIF JOHNSON MD V65 .42 COUNSELING - SMOKING CESSATION 11/09/2013 SHARIF JOHNSON MD 786 .07 WHEEZING 11/09/2013 SHARIF JOHNSON MD 786 .2 COUGH 11/09/2013 SHARIF JOHNSON MD V65 .42 COUNSELING - SMOKING CESSATION 11/09/2013 SHANIQUE VEGA MD 786.0 7 WHEEZING 11/09/2013 SHANIQUE VEGA MD 786.2 COUGH 11/09/2013 SHANIQUE VEGA MD V65.4 2 COUNSELING - SMOKING CESSATION 11/12/2013 SHAHNAZ MARQUEZ APRN 486 PNEUMONIA UNSPECIFIED 11/12/2013 MAX DHILLON APRN 48 6 PNEUMONIA UNSPECIFIED 11/12/2013 MAX DHILLON APRN 48 6 PNEUMONIA UNSPECIFIED 11/12/2013 ILIR VILLALOBOS, MIKE K 486 PNEUMONIA UNSPECIFIED 11/12/2013 CAROLINE MENDOZA MD 486 PNEUMONIA UNSPECIFIED 11/12/2013 CAROLINE MENDOZA MD 486 PNEUMONIA UNSPECIFIED 11/12/2013 SHARIF JOHNSON MD 486 PNEUMONIA UNSPECIFIED 11/12/2013 SHARIF JOHNSON MD 486 PNEUMONIA UNSPECIFIED 11/12/2013 ELIZABETH MD, SHARIF N 486 PNEUMONIA UNSPECIFIED 11/12/2013 ELIZABETH ROLDAN, SHARIF N 486 PNEUMONIA UNSPECIFIED 11/12/2013 ELIZABETH ROLDAN, SHARIF N 486 PNEUMONIA UNSPECIFIED 11/12/2013 JOVANNI BURGOS, DESI CONRAD 486 PNEUMONIA UNSPECIFIED 11/12/2013 ELIZABETH ROLDAN, SHARIF N 486 PNEUMONIA UNSPECIFIED 11/12/2013 ELIZABETH ROLDAN, SHAIRF N 486 PNEUMONIA UNSPECIFIED 11/12/2013 JOVANNI BURGOS, DESI CONRAD 486 PNEUMONIA UNSPECIFIED 11/12/2013 ELIZABETH ROLDAN, SHARIF N 486 PNEUMONIA UNSPECIFIED 11/12/2013 ELIZABETH ROLDAN, SHARIF N 486 PNEUMONIA UNSPECIFIED 11/12/2013 MASSIEL VEGA 4 86 PNEUMONIA UNSPECIFIED 11/12/2013 MIKE HAZEL DO 486 PNEUMONIA UNSPECIFIED 11/12/2013 ELIZABETH ROLDAN, SHARIF N 486 PNEUMONIA UNSPECIFIED 11/12/2013 SHANIQUE VEGA MD 486 PNEUMONIA UNSPECIFIED 11/12/2013 SHARIF JOHNSON MD 486 PNEUMONIA UNSPECIFIED 11/12/2013 SHARIF JOHNSON MD 486 PNEUMONIA UNSPECIFIED 11/12/2013 SHANIQUE VEGA MD 486 PNEUMONIA UNSPECIFIED 11/14/2013 SHARIF JOHNSON MD Ot 272 .4 HYPERLIPIDEMIA NEC/NOS 11/14/2013 SHARIF JOHNSON MD Ot 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 11/14/2013 SHARIF JOHNSON MD Ot 401 .9 HYPERTENSION NOS 11/14/2013 SHARIF JOHNSON MD Ot 491.21 OBSTR CHRONIC BRONCHITIS, W (ACUTE) EXAC 11/14/2013 SHARIF JOHNSON MD Ot 715.90 OSTEOARTHROS NOS-UNSPEC 12/11/2013 MAX DHILLON APRN 46 6.0 BRONCHITIS, ACUTE 12/11/2013 MAX DHILLON APRN 46 6.0 BRONCHITIS, ACUTE 12/11/2013 MIKE HAZEL DO 466.0 BRONCHITIS, ACUTE 12/11/2013 CAROLINE MENDOZA MD 466.0 BRONCHITIS, ACUTE 12/11/2013 CAROLINE MENDOZA MD 466.0 BRONCHITIS, ACUTE 12/11/2013 SHARIF JOHNSON MD 466 .0 BRONCHITIS, ACUTE 12/11/2013 ELIZABETH MD, SHARIF N 466 .0 BRONCHITIS, ACUTE 12/11/2013 ELIZABETH ROLDAN, SHARIF N 466 .0 BRONCHITIS, ACUTE 12/11/2013 ELIZABETH ROLDAN, SHARIF N 466 .0 BRONCHITIS, ACUTE 12/11/2013 ELIZABETH ROLDAN, SHARIF N 466 .0 BRONCHITIS, ACUTE 12/11/2013 JOVANNI BURGOS, DESI CONRAD 466.0 BRONCHITIS, ACUTE 12/11/2013 ELIZABETH ROLDAN, SHARIF N 466 .0 BRONCHITIS, ACUTE 12/11/2013 ELIZABETH ROLDAN, SHARIF N 466 .0 BRONCHITIS, ACUTE 12/11/2013 JOVANNI BURGOS, DESI CONRAD 466.0 BRONCHITIS, ACUTE 12/11/2013 ELIZABETH ROLDAN, SHARIF N 466 .0 BRONCHITIS, ACUTE 12/11/2013 ELIZABETH ROLDAN, SHARIF N 466 .0 BRONCHITIS, ACUTE 12/11/2013 MASSIEL VEGA 466.0 BRONCHITIS, ACUTE 12/11/2013 ILIR VILLALOBOS, MIKE K 466.0 BRONCHITIS, ACUTE 12/11/2013 ELIZABETH ROLDAN, SHARIF N 466 .0 BRONCHITIS, ACUTE 12/11/2013 SHANIQUE VEGA MD 466.0 BRONCHITIS, ACUTE 12/11/2013 ELIZABETH ROLDAN, SHARIF N 466 .0 BRONCHITIS, ACUTE 12/11/2013 ELIZABETH ROLDAN, SHARIF N 466 .0 BRONCHITIS, ACUTE 12/11/2013 SHANIQUE VEGA MD 466.0 BRONCHITIS, ACUTE 12/15/2013 MAX DHILLON APRN 719.07 EDEMA FOOT 12/15/2013 MAX DHILLON APRN 78 5.2 MURMURS, UNDIAGNOSED CARDIAC 12/15/2013 MAX DHILLON APRN 786.05 SHORTNESS OF BREATH 12/15/2013 HAZEL DO, [...] OF BREATH 12/15/2013 SHARIF JOHNSON MD N 719 .07 EDEMA FOOT 12/15/2013 SHARIF JOHNSON MD N 785 .2 MURMURS, UNDIAGNOSED CARDIAC 12/15/2013 SHARIF JOHNSON MD N 786 .05 SHORTNESS OF BREATH 12/15/2013 SHARIF JOHNSON MD N 719 .07 EDEMA FOOT 12/15/2013 SHARIF JOHNSON MD N 785 .2 MURMURS, UNDIAGNOSED CARDIAC 12/15/2013 SHARIF JOHNSON MD N 786 .05 SHORTNESS OF BREATH 12/15/2013 SHARIF JOHNSON MD N 719 .07 EDEMA FOOT 12/15/2013 SHARIF JOHNSON MD N 785 .2 MURMURS, UNDIAGNOSED CARDIAC 12/15/2013 SHARIF JOHNSON MD N 786 .05 SHORTNESS OF BREATH 12/15/2013 SHARIF JOHNSON MD N 719 .07 EDEMA FOOT 12/15/2013 SHARIF JOHNSON MD N 785 .2 MURMURS, UNDIAGNOSED CARDIAC 12/15/2013 SHARIF JOHNSON MD N 786 .05 SHORTNESS OF BREATH 12/15/2013 SHARIF JOHNSON MD N 719 .07 EDEMA FOOT 12/15/2013 SHARIF JOHNSON MD N 785 .2 MURMURS, UNDIAGNOSED CARDIAC 12/15/2013 SHARIF JOHNSON MD N 786 .05 SHORTNESS OF BREATH 12/15/2013 JOVANNI BURGOS DESI CONRAD 719.07 EDEMA FOOT 12/15/2013 JOVANNI BURGOS DESI CONRAD 785.2 MURMURS, UNDIAGNOSED CARDIAC 12/15/2013 JOVANNI BURGOS DESI CONRAD 786.05 SHORTNESS OF BREATH 12/15/2013 SHARIF JOHNSON MD N 719 .07 EDEMA FOOT 12/15/2013 SHARIF JOHNSON MD N 785 .2 MURMURS, UNDIAGNOSED CARDIAC 12/15/2013 SHARIF JOHNSON MD N 786 .05 SHORTNESS OF BREATH 12/15/2013 SHARIF JOHNSON MD N 719 .07 EDEMA FOOT 12/15/2013 SHARIF JOHNSON MD 785 .2 MURMURS, UNDIAGNOSED CARDIAC 12/15/2013 SHARIF JOHNSON MD N 786 .05 SHORTNESS OF BREATH 12/15/2013 DESI BAIG APRN 719.07 EDEMA FOOT 12/15/2013 BAIG BLOOM CONVEYOR OPERATOR, DESI CONRAD 785.2 MURMURS, UNDIAGNOSED CARDIAC 12/15/2013 JOVANNI WOODSNDESI 786.05 SHORTNESS OF BREATH 12/15/2013 SHARIF JOHNSON MD N 719 .07 EDEMA FOOT 12/15/2013 SHARIF JOHNSON MD 785 .2 MURMURS, UNDIAGNOSED CARDIAC 12/15/2013 SHARIF JOHNSON MD N 786 .05 SHORTNESS OF BREATH 12/15/2013 SHARIF JOHNSON MD N 719 .07 EDEMA FOOT 12/15/2013 SHARIF JOHNSON MD 785 .2 MURMURS, UNDIAGNOSED CARDIAC 12/15/2013 SHARIF JOHNSON MD N 786 .05 SHORTNESS OF BREATH 12/15/2013 MASSIEL VEGA M 719.07 EDEMA FOOT 12/15/2013 MASSIEL VEGA M 785.2 MURMURS, UNDIAGNOSED CARDIAC 12/15/2013 MASSIEL VEGA M 786.05 SHORTNESS OF BREATH 12/15/2013 HAZEL DO, MIKE K 719.07 EDEMA FOOT 12/15/2013 HAZEL DO, MIKE K 785.2 MURMURS, UNDIAGNOSED CARDIAC 12/15/2013 HAZEL DO, MIKE K 786.05 SHORTNESS OF BREATH 12/15/2013 SHARIF JOHNSON MD N 719 .07 EDEMA FOOT 12/15/2013 SHARIF JOHNSON MD 785 .2 MURMURS, UNDIAGNOSED CARDIAC 12/15/2013 SHARIF JOHNSON MD N 786 .05 SHORTNESS OF BREATH 12/15/2013 SHANIQUE VEGA MD 719.0 7 EDEMA FOOT 12/15/2013 SHANIQUE VEGA MD 785.2 MURMURS, UNDIAGNOSED CARDIAC 12/15/2013 SHANIQUE VEGA MD 786.0 5 SHORTNESS OF BREATH 12/15/2013 SHARIF JOHNSON MD N 719 .07 EDEMA FOOT 12/15/2013 ELIZABETH MD, SHARIF N 785 .2 MURMURS, UNDIAGNOSED CARDIAC 12/15/2013 ELIZABETH ROLDAN, SHARIF N 786 .05 SHORTNESS OF BREATH 12/15/2013 ELIZABETH ROLDAN, SHARIF N 719 .07 EDEMA FOOT 12/15/2013 ELIZABETH ROLDAN, SHARIF N 785 .2 MURMURS, UNDIAGNOSED CARDIAC 12/15/2013 ELIZABETH ROLDAN, SHARIF N 786 .05 SHORTNESS OF BREATH 12/15/2013 SHANIQUE VEGA MD 719.0 7 EDEMA FOOT 12/15/2013 SHANIQUE VEGA MD 785.2 MURMURS, UNDIAGNOSED CARDIAC 12/15/2013 SHANIQUE VEGA MD 786.0 5 SHORTNESS OF BREATH 12/30/2013 MIKE HAZEL DO 782.3 Edema 12/30/2013 CAROLINE MENDOZA MD 782.3 Edema 12/30/2013 CAROLINE MENDOZA MD 782.3 Edema 12/30/2013 ELIZBAETH ROLDAN, SHARIF N 782 .3 Edema 12/30/2013 ELIZABETH ROLDAN, SHARIF N 782 .3 Edema 12/30/2013 ELIZABETH ROLDAN, SHARIF N 782 .3 Edema 12/30/2013 ELIZABETH ROLDAN, SHARIF N 782 .3 Edema 12/30/2013 ELIZABETH ROLDAN, SHARIF N 782 .3 Edema 12/30/2013 DESI BAIG APRN 782.3 Edema 12/30/2013 ELIZABETH ROLDAN, SHARIF N 782 .3 Edema 12/30/2013 ELIZABETH ROLDAN, SHARIF N 782 .3 Edema 12/30/2013 DESI BAIG APRN 782.3 Edema 12/30/2013 ELIZABETH ROLDAN, SHARIF N 782 .3 Edema 12/30/2013 ELIZABETH ROLDAN, SHARIF N 782 .3 Edema 12/30/2013 MASSIEL VEGA 782.3 Edema 12/30/2013 MIKE HAZEL DO 782.3 Edema 12/30/2013 ELIZABETH ROLDAN, SHARIF N 782 .3 Edema 12/30/2013 SHANIQUE VEGA MD 782.3 Edema 12/30/2013 ELIZABETH ROLDAN, SHARIF N 782 .3 Edema 12/30/2013 ELIZABETH ROLDAN, SHARIF N 782 .3 Edema 12/30/2013 GARY ROLDAN, SHANIQUE 782.3 Edema 05/24/2014 DIANNA MACHADO MD Ot 278. 00 OBESITY, NOS 05/24/2014 DIANNA MACHADO MD Ot 715. 95 OSTEOARTHROS NOS-PELVIS 05/24/2014 DIANNA MACHADO MD, Ot 721. 3 LUMBOSACRAL SPONDYLOSIS 05/24/2014 DIANNA MACHADO MD, Ot 722. 52 LUMB/LUMBOSAC DISC DEGEN 05/24/2014 DIANNA MACHADO MD, Ot 729. 1 MYALGIA AND MYOSITIS NOS 05/24/2014 DIANNA MACHADO MD, Ot V58. 69 OTH MED,LT,CURRENT USE 05/24/2014 DIANNA MACHADO MD Ot V85. 33 BODY MASS INDEX 33.0-33.9, ADULT 06/07/2014 RUFINA [...] OR STUMBLI 06/28/2014 DIANNA MACHADO MD Ot 278. 00 OBESITY, NOS 06/28/2014 DIANNA MACHADO MD Ot 715. 95 OSTEOARTHROS NOS-PELVIS 06/28/2014 DIANNA MACHADO MD, Ot 721. 3 LUMBOSACRAL SPONDYLOSIS 06/28/2014 DIANNA MACHADO MD, Ot 722. 52 LUMB/LUMBOSAC DISC DEGEN 06/28/2014 DIANNA MACHADO MD, Ot 729. 1 MYALGIA AND MYOSITIS NOS 06/28/2014 DIANNA MACHADO MD, Ot V58. 69 OTH MED,LT,CURRENT USE 06/28/2014 DIANNA MACHADO MD Ot V85. 32 BODY MASS INDEX 32.0-32.9, ADULT 09/15/2014 ELIZABETH ROLDAN, SHARIF N 414 .00 CORONARY ATHEROSCLEROSIS OF UNSPECIFIED TYPE OF VESSEL [place] OR GRAFT 09/15/2014 SHARIF JOHNSON MD N 782 .2 LOCALIZED SUPERFICIAL SWELLING MASS OR LUMP 09/15/2014 MASSIEL VEGA 414.00 CORONARY ATHEROSCLEROSIS OF UNSPECIFIED TYPE OF VESSEL [place] OR GRAFT 09/15/2014 MASSIEL VEGA 782.2 LOCALIZED SUPERFICIAL SWELLING MASS OR LUMP 09/15/2014 HAZEL MIKE VILLALOBOS 414.00 CORONARY ATHEROSCLEROSIS OF UNSPECIFIED TYPE OF VESSEL [place] OR GRAFT 09/15/2014 MIKE HAZEL DO 782.2 LOCALIZED SUPERFICIAL SWELLING MASS OR LUMP 09/15/2014 SHARIF JOHNSON MD N 414 .00 CORONARY ATHEROSCLEROSIS OF UNSPECIFIED TYPE OF VESSEL [place] OR GRAFT 09/15/2014 SHARIF JOHNSON MD 782 .2 LOCALIZED SUPERFICIAL SWELLING MASS OR LUMP 09/15/2014 SHANIQUE VEGA MD 414.0 0 CORONARY ATHEROSCLEROSIS OF UNSPECIFIED TYPE OF VESSEL [place] OR GRAFT 09/15/2014 SHANIQUE VEGA MD 782.2 LOCALIZED SUPERFICIAL SWELLING MASS OR LUMP 09/15/2014 SHARIF JOHNSON MD 414 .00 CORONARY ATHEROSCLEROSIS OF UNSPECIFIED TYPE OF VESSEL [place] OR GRAFT 09/15/2014 SHARIF JOHNSON MD 782 .2 LOCALIZED SUPERFICIAL SWELLING MASS OR LUMP 09/15/2014 SHARIF JOHNSON MD N 414 .00 CORONARY ATHEROSCLEROSIS OF UNSPECIFIED TYPE OF VESSEL [place] OR GRAFT 09/15/2014 SHARIF JOHNSON MD 782 .2 LOCALIZED SUPERFICIAL SWELLING MASS OR LUMP 09/15/2014 SHANIQUE VEGA MD 414.0 0 CORONARY ATHEROSCLEROSIS OF UNSPECIFIED TYPE OF VESSEL [place] OR GRAFT 09/15/2014 SHANIQUE VEGA MD 782.2 LOCALIZED SUPERFICIAL SWELLING MASS OR LUMP 09/30/2014 DIANNA MACHADO MD Ot 278. 00 09/30/2014 DIANNA MACHADO MD Ot 715. 95 09/30/2014 DIANNA MACHADO MD Ot 721. 3 09/30/2014 DIANNA MACHADO MD Ot 729. 1 09/30/2014 DIANNA MACHADO MD Ot V58. 69 09/30/2014 DIANNA MACHADO MD Ot V85. 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 11/02/2014 HAZEL , MIKE K Ot 311 DEPRESSIVE DISORDER NEC 11/02/2014 ILIR VILLALOBOS, MIKE K Ot 414.01 CORONARY ATHEROSCLEROSIS OF [place] CORON 11/02/2014 ILIR VILLALOBOS, MIKE K Ot 491.20 OBSTR CHRONIC BRONCHITIS, W/O EXACERBATI 11/02/2014 ILIR VILLALOBOS, MIKE K Ot 599.0 URIN TRACT INFECTION NOS 11/02/2014 ILIR VILLALOBOS MIKE K Ot 715.35 LOC OSTEOARTH NOS-PELVIS 11/02/2014 HAZEL , MIKE K Ot 780.97 ALTERED MENTAL STATUS 11/02/2014 ILIR VILLALOBOS, MIKE K Ot 781.2 ABNORMALITY OF GAIT 11/02/2014 ILIR VILLALOBOS, MIKE K Ot 969.4 POIS-BENZODIAZEPINE BASS 11/02/2014 ILIR VILLALOBOS MIKE K Ot E853.2 ACC POISN-BENZDIAZ TRANQ 11/02/2014 ILIR VILLALOBOS MIKE K Ot V15.88 HISTORY OF FALL 11/02/2014 ILIR VILLALOBOS MIKE K Ot V45.82 PERCUTANEOUS TRANSLUM CORON ANGIOPLASTY 11/02/2014 HAZEL , MIKE K Ot 276.51 11/02/2014 HAZEL DO, MIKE K Ot 300.01 11/02/2014 HAZEL DO, MIKE K Ot 311 11/02/2014 HAZEL DO, MIKE K Ot 414.01 11/02/2014 HAZEL DO, MIKE K Ot 491.20 11/02/2014 HAZEL DO, MIKE K Ot 599.0 11/02/2014 HAZEL , MIKE K Ot 715.35 11/02/2014 HAZEL DO, MIKE K Ot 780.97 11/02/2014 HAZEL DO, MIKE K Ot 781.2 11/02/2014 HAZEL DO, MIKE K Ot 969.4 11/02/2014 HAZEL DO, MIKE K Ot E853.2 11/02/2014 HAZEL DO, MIKE K Ot V15.88 11/02/2014 HAZEL DO, MIKE K Ot V45.82 11/05/2014 GARY ROLDAN, SHANIQUE Funk Ot 338.29 OTHER CHRONIC PAIN 11/05/2014 GARY ROLDAN, SHANIQUE Funk Ot 719.41 JOINT PAIN-SHLDER 11/05/2014 GARY ROLDAN, SHANIQUE Funk Ot 780.79 OTH MALAISE FATIGUE 11/05/2014 SHANIQUE VEGA MD Ot V13.02 PERSONAL HISTORY, URINARY (TRACT) INFECT 11/11/2014 JAJA ROLDAN, EMANUEL A Ot 787. 02 NAUSEA ALONE 11/26/2014 SHARIF JOHNSON MD N 787 .02 NAUSEA ALONE 11/26/2014 SHANIQUE VEGA MD 787.0 2 NAUSEA ALONE 11/26/2014 SHARIF JOHNSON MD N 787 .02 NAUSEA ALONE 11/26/2014 SHARIF JOHNSON MD 787 .02 NAUSEA ALONE 11/26/2014 SHANIQUE VEGA MD 787.0 2 NAUSEA ALONE 12/03/2014 DIANNA MACHADO MD Ot 715. 95 OSTEOARTHROS NOS-PELVIS 12/03/2014 DIANNA MACHADO MD Ot 721. 3 LUMBOSACRAL SPONDYLOSIS 12/03/2014 DIANNA MACHADO MD Ot 729. 1 MYALGIA AND MYOSITIS NOS 12/03/2014 DIANNA MACHADO MD Ot V58. 69 OT MED,LT,CURRENT USE 12/08/2014 SHARIF JOHNSON MD N 401 .9 HYPERTENSION, UNSPECIFIED ESSENTIAL 12/08/2014 SHARIF JOHNSON MD N 433 .10 CAROTID 12/08/2014 SHARIF JOHNSON MD N 443 .9 PERIPHERAL VASCULAR DISEASE UNSPECIFIED 12/08/2014 SHARIF JOHNSON MD N 794 .31 ABNORMAL EKG 12/08/2014 SHARIF JOHNSON MD N 401 .9 HYPERTENSION, UNSPECIFIED ESSENTIAL 12/08/2014 SHARIF JOHNSON MD N 433 .10 CAROTID 12/08/2014 SHARIF JOHNSON MD N 443 .9 PERIPHERAL VASCULAR DISEASE UNSPECIFIED 12/08/2014 SHARIF JOHNSON MD N 794 .31 ABNORMAL EKG 12/08/2014 SHANIQUE VEGA MD 401.9 HYPERTENSION, UNSPECIFIED ESSENTIAL 12/08/2014 SHANIQUE VEGA MD 433.1 0 CAROTID 12/08/2014 SHANIQUE VEGA MD 443.9 PERIPHERAL VASCULAR DISEASE UNSPECIFIED 12/08/2014 SHANIQUE VEGA MD 794.3 1 ABNORMAL EKG 12/28/2014 BISHNU ROLDAN FACC, CHELLE HDEZP CCDS Ot 414.01 CORONARY ATHEROSCLEROSIS OF [place] CORON 12/28/2014 BISHNU ROLDAN FACC, ALI FACP CCDS Ot 414.4 CORONARY ATHEROSCLEROSIS DUE TO CALCIFIE 12/28/2014 BISHNU ROLDAN FAC, ALI FACP CCDS Ot 440.0 AORTIC ATHEROSCLEROSIS 12/28/2014 BISHNU ROLDAN FACAndrea, ALI FACP CCDS Ot 440.1 RENAL ARTERY ATHEROSCLER 12/28/2014 BISHNU ROLDAN FACC, ALI FACP CCDS Ot 440.20 ATHEROSCLEROSIS [place] ARTERIES EXTREMIT 12/28/2014 BISHNU ROLDAN FACC, ALI FACP CCDS Ot 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 12/28/2014 BISHNU ROLDAN FACAndrea, ALI FACP CCDS Ot 441.4 ABDOM AORTIC ANEURYSM 12/28/2014 BISHNU ROLDAN FACC, ALI FACP CCDS Ot 786.09 RESPIRATORY ABNORM NEC 12/28/2014 BISHNU ROLDAN FACC, ALI FACP CCDS Ot V58.69 OT MED,LT,CURRENT USE 02/07/2015 SASHA ROLDAN, MYRNA E Ot 272.4 02/07/2015 SASHA ROLDAN, MYRNA E Ot 285.9 02/07/2015 SASHA ROLDAN, MYRNA E Ot 300.0 0 02/07/2015 SASHA ROLDAN, MYRNA E Ot 401.9 02/07/2015 SASHA ROLDAN, MYRNA E Ot 414.0 1 02/07/2015 SASHA ROLDAN, MYRNA E Ot 427.3 1 02/07/2015 SASHA ROLDAN, MYRNA E Ot 496 02/07/2015 SASHA ROLDAN, MYRNA E Ot 530.8 1 02/07/2015 SASHA ROLDAN, MYRNA E Ot 715.3 1 02/07/2015 SASHA ROLDAN, MYRNA E Ot 715.3 5 02/07/2015 SASHA ROLDAN, MYRNA E Ot 721.9 0 02/07/2015 SASHA ROLDAN, MYRNA E Ot 733.0 0 02/07/2015 SASHA ROLDAN, MYRNA E Ot 786.0 9 02/07/2015 SASHA ROLDAN, MYRNA E Ot 788.4 3 02/07/2015 SASHA ROLDAN, MYRNA E Ot V15.8 2 02/07/2015 SASHA ROLDAN, MYRNA E Ot V45.8 1 02/07/2015 SASHA ROLDAN, MYRNA E Ot V46.2 02/07/2015 SASHA ROLDAN, MYRNA E Ot V57.8 9 02/08/2015 SAHSA ROLDAN, MYRNA E Ot 272.4 02/08/2015 SASHA ROLDAN, MYRNA E Ot 285.9 02/08/2015 SASHA ROLDAN, MYRNA E Ot 300.0 0 02/08/2015 SASHA ROLDAN, MYRNA E Ot 401.9 02/08/2015 SASHA ROLDAN, MYRNA E Ot 414.0 1 02/08/2015 SASHA ROLDAN, MYRNA E Ot 427.3 1 02/08/2015 SASHA ROLDAN, MYRNA E Ot 496 02/08/2015 SASHA ROLDAN, MYRNA E Ot 530.8 1 02/08/2015 SASHA ROLDAN, MYRNA E Ot 715.3 1 02/08/2015 SASHA ROLDAN, MYRNA E Ot 715.3 5 02/08/2015 SASHA ROLDAN, MYRNA E Ot 721.9 0 02/08/2015 SASHA ROLDAN, MYRNA E Ot 733.0 0 02/08/2015 SASHA ROLDAN, MYRNA E Ot 786.0 9 02/08/2015 SASHA ROLDAN, MYRNA E Ot 788.4 3 02/08/2015 SASHA ROLDAN, MYRNA E Ot V15.8 2 02/08/2015 SASHA ROLDAN, MYRNA E Ot V45.8 1 02/08/2015 SASHA ROLDAN, MYRNA E Ot V46.2 02/08/2015 SASHA ROLDAN, MYRNA E Ot V57.8 9 02/09/2015 SASHA ROLDAN, MYRNA E Ot 272.4 02/09/2015 SASHA ROLDAN, MYRNA E Ot 285.9 02/09/2015 SASHA ROLDAN, MYRNA E Ot 300.0 0 02/09/2015 SASHA ROLDAN, MYRNA E Ot 401.9 02/09/2015 SASHA ROLDAN, MYRNA E Ot 414.0 1 02/09/2015 SASHA ROLDAN, MYRNA E Ot 427.3 1 02/09/2015 SASHA ROLDAN, MYRNA E Ot 496 02/09/2015 SASHA ROLDAN, MYRNA E Ot 530.8 1 02/09/2015 SASHA ROLDAN, MYRNA E Ot 715.3 1 02/09/2015 SASHA ROLDAN, MYRNA E Ot 715.3 5 02/09/2015 SASHA ROLDAN, MYRNA E Ot 721.9 0 02/09/2015 SASHA ROLDAN, MYRNA E Ot 733.0 0 02/09/2015 SASHA ROLDAN, MYRNA E Ot 786.0 9 02/09/2015 SASHA ROLDAN, MYRNA E Ot 788.4 3 02/09/2015 SASHA ROLDAN, MYRNA E Ot V15.8 2 02/09/2015 SASHA ROLDAN, MYRNA E Ot V45.8 1 02/09/2015 SASHA ROLDAN, MYRNA E Ot V46.2 02/09/2015 SASHA ROLDAN, MYRNA E Ot V57.8 9 02/10/2015 SASHA ROLDAN, MYRNA E Ot 272.4 02/10/2015 SASHA ROLDAN, MYRNA E Ot 285.9 02/10/2015 SASHA ROLDAN, MYRNA E Ot 300.0 0 02/10/2015 SASHA ROLDAN, MYRNA E Ot 401.9 02/10/2015 SASHA ROLDAN, MYRNA E Ot 414.0 1 02/10/2015 SASHA ROLDAN, MYRNA E Ot 427.3 1 02/10/2015 SASHA ROLDAN, MYRNA E Ot 496 02/10/2015 SASHA ROLDAN, MYRNA E Ot 530.8 1 02/10/2015 SASHA ROLDAN, MYRNA E Ot 715.3 1 02/10/2015 SASHA ROLDAN, MYRNA E Ot 715.3 5 02/10/2015 SASHA ROLDAN, MYRNA E Ot 721.9 0 02/10/2015 SASHA ROLDAN, MYRNA E Ot 733.0 0 02/10/2015 SASHA ROLDAN, MYRNA E Ot 786.0 9 02/10/2015 SASHA ROLDAN, MYRNA E Ot 788.4 3 02/10/2015 SASHA ROLDAN, MYRNA E Ot V15.8 2 02/10/2015 SASHA ROLDAN, MYRNA E Ot V45.8 1 02/10/2015 SASHA ROLDAN, MYRNA E Ot V46.2 02/10/2015 SASHA ROLDAN, MYRNA E Ot V57.8 9 02/11/2015 SASHA ROLDAN, MYRNA E Ot 272.4 02/11/2015 SASHA ROLDAN, MYRNA E Ot 285.9 02/11/2015 SASHA ROLDAN, MYRNA E Ot 300.0 0 02/11/2015 SASHA ROLDAN, MYRNA E Ot 401.9 02/11/2015 SASHA ROLDAN, MYRNA E Ot 414.0 1 02/11/2015 SASHA ROLDAN, MYRNA E Ot 427.3 1 02/11/2015 SASHA ROLDAN, MYRNA E Ot 496 02/11/2015 SASHA ROLDAN, MYRNA E Ot 530.8 1 02/11/2015 SASHA ROLDAN, MYRNA E Ot 715.3 1 02/11/2015 SASHA ROLDAN, MYRNA E Ot 715.3 5 02/11/2015 SASHA ROLDAN, MYRNA E Ot 721.9 0 02/11/2015 SASHA ROLDAN, MYRNA E Ot 733.0 0 02/11/2015 SASHA ROLDAN, MYRNA E Ot 786.0 9 02/11/2015 SASHA ROLDAN, MYRNA E Ot 788.4 3 02/11/2015 SASHA ROLDAN, MYRNA E Ot V15.8 2 02/11/2015 SASHA ROLDAN, MYRNA E Ot V45.8 1 02/11/2015 SASHA ROLDAN, MYRNA E Ot V46.2 02/11/2015 SASHA ROLDAN, MYRNA E Ot V57.8 9 02/11/2015 SASHA ROLDAN, MYRNA E Ot 272.4 02/11/2015 SASHA ROLDAN, MYRNA E Ot 285.9 02/11/2015 SASHA ROLDAN, MYRNA E Ot 300.0 0 02/11/2015 SASHA ROLDAN, MYRNA E Ot 401.9 02/11/2015 SASHA ROLDAN, MYRNA E Ot 414.0 1 02/11/2015 SASHA ROLDAN, MYRNA E Ot 427.3 1 02/11/2015 SASHA ROLDAN, MYRNA E Ot 496 02/11/2015 SASHA ROLDAN, MYRNA E Ot 530.8 1 02/11/2015 SASHA ROLDAN, MYRNA E Ot 715.3 1 02/11/2015 SASHA ROLDAN, MYRNA E Ot 715.3 5 02/11/2015 SASHA ROLDAN, MYRNA E Ot 721.9 0 02/11/2015 SASHA ROLDAN, MYRNA E Ot 733.0 0 02/11/2015 SASHA ROLDAN, MYRNA E Ot 786.0 9 02/11/2015 SSAHA ROLDAN, MYRNA E Ot 788.4 3 02/11/2015 SASHA ROLDAN, MYRNA E Ot V15.8 2 02/11/2015 SASHA ROLDAN, MYRNA E Ot V45.8 1 02/11/2015 SASHA ROLDAN, MYRNA E Ot V46.2 02/11/2015 SASHA ROLDAN, MYRNA E Ot V57.8 9 02/12/2015 SASHA ROLDAN, MYRNA E Ot 272.4 02/12/2015 SASHA ROLDAN, MYRNA E Ot 285.9 02/12/2015 SASHA ROLDAN, MYRNA E Ot 300.0 0 02/12/2015 SASHA ROLDAN, MYRNA E Ot 401.9 02/12/2015 SASHA ROLDAN, MYRNA E Ot 414.0 1 02/12/2015 SASHA ROLDAN, MYRNA E Ot 427.3 1 02/12/2015 SASHA ROLDAN, MYRNA E Ot 496 02/12/2015 SASHA ROLDAN, MYRNA E Ot 530.8 1 02/12/2015 SASHA ROLDAN, MYRNA E Ot 715.3 1 02/12/2015 SASHA ROLDAN, MYRNA E Ot 715.3 5 02/12/2015 SASHA ROLDAN, MYRNA E Ot 721.9 0 02/12/2015 SASAH ROLDAN, MYRNA E Ot 733.0 0 02/12/2015 SASAH ROLDAN, MYRNA E Ot 786.0 9 02/12/2015 SASHA ROLDAN, MYRNA E Ot 788.4 3 02/12/2015 SASHA ROLDAN, MYRNA E Ot V15.8 2 02/12/2015 SASHA ROLDAN, MYRNA E Ot V45.8 1 02/12/2015 SASHA ROLDAN, MYRNA E Ot V46.2 02/12/2015 SASHA ROLDAN, MYRNA E Ot V57.8 9 02/13/2015 SASHA ROLDAN, MYRNA E Ot 272.4 02/13/2015 SASHA ROLDAN, MYRNA E Ot 285.9 02/13/2015 SASHA ROLDAN, MYRNA E Ot 300.0 0 02/13/2015 SASHA ROLDAN, MYRNA E Ot 401.9 02/13/2015 SASHA ROLDAN, MYRNA E Ot 414.0 1 02/13/2015 SASHA ROLDAN, MYRNA E Ot 427.3 1 02/13/2015 SASHA ROLDAN, MYRNA E Ot 496 02/13/2015 SASHA ROLDAN, MYRNA E Ot 530.8 1 02/13/2015 ASSHA ROLDAN, MYRNA E Ot 715.3 1 02/13/2015 SASHA ROLDAN, MYRNA E Ot 715.3 5 02/13/2015 SASHA ROLDAN, MYRNA E Ot 721.9 0 02/13/2015 SASHA ROLDAN, MYRNA E Ot 733.0 0 02/13/2015 SASHA ROLDAN, MYRNA E Ot 786.0 9 02/13/2015 SASHA ROLDAN, MYRNA E Ot 788.4 3 02/13/2015 SASHA ROLDAN, MYRNA E Ot V15.8 2 02/13/2015 SASHA ROLDAN, MYRNA E Ot V45.8 1 02/13/2015 SASHA ROLDAN, MYRNA E Ot V46.2 02/13/2015 SASHA ROLDAN, MYRNA E Ot V57.8 9 02/14/2015 SASHA ROLDAN, MYRNA E Ot 272.4 02/14/2015 SASHA ROLDAN, MYRNA E Ot 285.9 02/14/2015 SASHA ROLDAN, MYRNA E Ot 300.0 0 02/14/2015 SASHA ROLDAN, MYRNA E Ot 401.9 02/14/2015 SASHA ROLDAN, MYRNA E Ot 414.0 1 02/14/2015 SASHA ROLDAN, MYRNA E Ot 427.3 1 02/14/2015 SASHA ROLDAN, MYRNA E Ot 496 02/14/2015 SASHA ROLDAN, MYRNA E Ot 530.8 1 02/14/2015 SASHA ROLDAN, MYRNA E Ot 715.3 1 02/14/2015 SASHA ROLDAN, MYRNA E Ot 715.3 5 02/14/2015 SASHA ROLDAN, MYRNA E Ot 721.9 0 02/14/2015 SASHA ROLDAN, MYRNA E Ot 733.0 0 02/14/2015 SASHA ROLDAN, MYRNA E Ot 786.0 9 02/14/2015 SASHA ROLDAN, MYRNA E Ot 788.4 3 02/14/2015 SASHA ROLDAN, MYRNA E Ot V15.8 2 02/14/2015 SASHA ROLDAN, MYRNA E Ot V45.8 1 02/14/2015 SASHA ROLDAN, MYRNA E Ot V46.2 02/14/2015 SASHA ROLDAN, MYRNA E Ot V57.8 9 02/17/2015 SASHA ROLDAN, MYRNA E Ot 272.4 02/17/2015 SASHA ROLDAN, MYRNA E Ot 285.9 02/17/2015 SASHA ROLDAN, MYRNA E Ot 300.0 0 02/17/2015 SASHA ROLDAN, MYRNA E Ot 401.9 02/17/2015 SASHA ROLDAN, MYRNA E Ot 414.0 1 02/17/2015 SASHA ROLDAN, MYRNA E Ot 427.3 1 02/17/2015 SASHA ROLDAN, MYRNA E Ot 496 02/17/2015 SASHA ROLDAN, MYRNA E Ot 530.8 1 02/17/2015 SASHA ROLDAN, MYRNA E Ot 715.3 1 02/17/2015 SASHA ROLDAN, MYRNA E Ot 715.3 5 02/17/2015 SASHA ROLDAN, MYRNA E Ot 721.9 0 02/17/2015 SASHA ROLDAN, MYRNA E Ot 733.0 0 02/17/2015 SASHA ROLDAN, MYRNA E Ot 786.0 9 02/17/2015 SASHA ROLDAN, MYRNA E Ot 788.4 3 02/17/2015 SASHA ROLDAN, MYRNA E Ot V15.8 2 02/17/2015 SASHA ROLDAN, MYRNA E Ot V45.8 1 02/17/2015 SASHA ROLDAN, MYRNA E Ot V46.2 02/17/2015 SASHA ROLDAN, MYRNA E Ot V57.8 9 02/17/2015 Ot 388.30 02/17/2015 Ot 780.4 02/17/2015 Ot 796.2 02/17/2015 Ot 799.51 02/17/2015 REJI ROLDAN, CAROLINE Magaña Ot 338.29 02/17/2015 CAROLINE MENDOZA MD Ot 722.6 02/17/2015 CAROLINE MENDOZA MD Ot 724.2 02/17/2015 CAROLINE MENDOZA MD Ot 724.4 02/17/2015 MAX DHILLON IC DESIGNER 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 Ot 401.1 02/17/2015 MAX DHILLON IC DESIGNER 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 Ot 424.1 02/17/2015 MAX DHILLON IC DESIGNER 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 Ot 785.2 02/17/2015 MAX DHILLON IC DESIGNER 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 Ot 786.05 02/17/2015 ANDRE HERNANDEZ DO Ot 715.91 02/17/2015 ANDRE HERNANDEZ DO Ot 727.61 02/17/2015 DIANNA MACHADO MD Ot 278. 00 02/17/2015 DIANNA MACHADO MD Ot 721. 3 02/17/2015 DIANNA MACHADO MD Ot 724. 6 02/17/2015 DIANNA MACHADO MD Ot 729. 1 02/17/2015 DIANNA MACHADO MD Ot V58. 69 02/17/2015 DIANNA MACHADO MD Ot V85. 35 02/17/2015 DIANNA MACHADO MD Ot 278. 00 02/17/2015 DIANNA MACHADO MD Ot 715. 95 02/17/2015 DIANNA MACHADO MD Ot 721. 3 02/17/2015 DIANNA MACHADO MD Ot 729. 1 02/17/2015 DIANNA MACHADO MD Ot V58. 69 02/17/2015 DIANNA MACHADO MD Ot V85. 33 02/17/2015 GARY ROLDAN, SHANIQUE F Ot 791 .9 02/17/2015 SASHA ROLDAN, MYRNA E Ot 272.4 02/17/2015 SASHA ROLDAN, MYRNA E Ot 285.9 02/17/2015 SASHA ROLDAN, MYRNA E Ot 300.0 0 02/17/2015 SASHA ROLDAN, MYRNA E Ot 401.9 02/17/2015 SASHA ROLDAN, MYRNA E Ot 414.0 1 02/17/2015 SASHA ROLDAN, MYRNA E Ot 427.3 1 02/17/2015 SASHA ROLDAN, MYRNA E Ot 496 02/17/2015 SASHA ROLDAN, MYRNA E Ot 530.8 1 02/17/2015 SASHA ROLDAN, MYRNA E Ot 715.3 1 02/17/2015 SASHA ROLDAN, MYRNA E Ot 715.3 5 02/17/2015 SASHA ROLDAN, MYRNA E Ot 721.9 0 02/17/2015 SASHA ROLDAN, MYRNA E Ot 733.0 0 02/17/2015 SASHA ROLDAN, MYRNA E Ot 786.0 9 02/17/2015 SASHA ROLDAN, MYRNA E Ot 788.4 3 02/17/2015 SASHA ROLDAN, MYRNA E Ot V15.8 2 02/17/2015 SASHA ROLDAN, MYRNA E Ot V45.8 1 02/17/2015 SASHA ROLDAN, MYRNA E Ot V46.2 02/17/2015 SASHA ROLDAN, MYRNA E Ot V57.8 9 02/17/2015 SASHA ROLDAN, MYRNA E Ot 272.4 02/17/2015 SASHA ROLDAN, MYRNA E Ot 285.9 02/17/2015 SASHA ROLDAN, MYRNA E Ot 300.0 0 02/17/2015 SASHA ROLDAN, MYRNA E Ot 401.9 02/17/2015 SASHA ROLDAN, MYRNA E Ot 414.0 1 02/17/2015 SASHA ROLDAN, MYRNA E Ot 427.3 1 02/17/2015 SASHA ROLDAN, MYRNA E Ot 496 02/17/2015 SASHA ROLDAN, MYRNA E Ot 530.8 1 02/17/2015 SASHA ROLDAN, MYRNA E Ot 715.3 1 02/17/2015 SASHA ROLDAN, MYRNA E Ot 715.3 5 02/17/2015 SASHA ROLDAN, MYRNA E Ot 721.9 0 02/17/2015 SASHA ROLDAN, MYRNA E Ot 733.0 0 02/17/2015 SASHA ROLDAN, MYRNA E Ot 786.0 9 02/17/2015 SASHA ROLDAN, MYRNA E Ot 788.4 3 02/17/2015 SASHA ROLDAN, MYRNA E Ot V15.8 2 02/17/2015 SASHA ROLDAN, MYRNA E Ot V45.8 1 02/17/2015 SASHA ROLDAN, MYRNA E Ot V46.2 02/17/2015 SASHA ROLDAN, MYRNA E Ot V57.8 9 02/17/2015 SASHA ROLDAN, MYRNA E Ot 272.4 02/17/2015 SASHA ROLDAN, MYRNA E Ot 285.9 02/17/2015 SASHA ROLDAN, MYRNA E Ot 300.0 0 02/17/2015 SASHA ROLDAN, MYRNA E Ot 401.9 02/17/2015 SASHA ROLDAN, MYRNA E Ot 414.0 1 02/17/2015 SASHA ROLDAN, MYRNA E Ot 427.3 1 02/17/2015 SASHA ROLDAN, MYRNA E Ot 496 02/17/2015 SASHA ROLDAN, MYRNA E Ot 530.8 1 02/17/2015 SASHA ROLDAN, MYRNA E Ot 715.3 1 02/17/2015 SASHA ROLDAN, MYRNA E Ot 715.3 5 02/17/2015 SASHA ROLDAN, MYRNA E Ot 721.9 0 02/17/2015 SASHA ROLDAN, MYRNA E Ot 733.0 0 02/17/2015 SASHA ROLDAN, MYRNA E Ot 786.0 9 02/17/2015 SASHA ROLDAN, MYRNA E Ot 788.4 3 02/17/2015 SASHA ROLDAN, MYRNA E Ot V15.8 2 02/17/2015 SASHA ROLDAN, MYRNA E Ot V45.8 1 02/17/2015 SASHA ROLDAN, MYRNA E Ot V46.2 02/17/2015 SASHA ROLDAN, MYRNA E Ot V57.8 9 02/17/2015 SASHA ROLDAN, MYRNA E Ot 272.4 02/17/2015 SASHA ROLDAN, MYRNA E Ot 285.9 02/17/2015 SASHA ROLDAN, MYRNA E Ot 300.0 0 02/17/2015 SASHA ROLDAN, MYRNA E Ot 401.9 02/17/2015 SASHA ROLDAN, MYRNA E Ot 414.0 1 02/17/2015 SASHA ROLDAN, MYRNA E Ot 427.3 1 02/17/2015 SASHA ROLDAN, MYRNA E Ot 496 02/17/2015 SASHA ROLDAN, MYRNA E Ot 530.8 1 02/17/2015 SASHA ROLDAN, MYRNA E Ot 715.3 1 02/17/2015 SASHA ROLDAN, MYRNA E Ot 715.3 5 02/17/2015 SASHA ROLDAN, MYRNA E Ot 721.9 0 02/17/2015 SASHA ROLDAN, MYRNA E Ot 733.0 0 02/17/2015 SASHA ROLDAN, MYRNA E Ot 786.0 9 02/17/2015 SASHA ROLDAN, MRYNA E Ot 788.4 3 02/17/2015 SASHA ROLDAN, MYRNA E Ot V15.8 2 02/17/2015 SASHA ROLDAN, MYRNA E Ot V45.8 1 02/17/2015 SASHA ROLDAN, MYRNA E Ot V46.2 02/17/2015 SASHA ROLDAN, MYRNA E Ot V57.8 9 02/18/2015 SASHA ROLDAN, MYRNA E Ot 272.4 02/18/2015 SASHA ROLDAN, MYRNA E Ot 285.9 02/18/2015 SASHA ROLDAN, MYRNA E Ot 300.0 0 02/18/2015 SASHA ROLDAN, MYRNA E Ot 401.9 02/18/2015 SASHA ROLDAN, MYRNA E Ot 414.0 1 02/18/2015 SASHA ROLDAN, MYRNA E Ot 427.3 1 02/18/2015 SASHA ROLDAN, MYRNA E Ot 496 02/18/2015 SASHA ROLDAN, MYRNA E Ot 530.8 1 02/18/2015 SASHA ROLDAN, MYRNA E Ot 715.3 1 02/18/2015 SASHA ROLDAN, MYRNA E Ot 715.3 5 02/18/2015 SASHA ROLDAN, MYRNA E Ot 721.9 0 02/18/2015 SASHA ROLDAN, MYRNA E Ot 733.0 0 02/18/2015 SASHA ROLDAN, MYRNA E Ot 786.0 9 02/18/2015 SASHA ROLDAN, MYRNA E Ot 788.4 3 02/18/2015 SASHA ROLDAN, MYRNA E Ot V15.8 2 02/18/2015 SASHA ROLDAN, MYRNA E Ot V45.8 1 02/18/2015 SASHA ROLDAN, MYRNA E Ot V46.2 02/18/2015 SASHA ROLDAN, MYRNA E Ot V57.8 9 02/19/2015 SASHA ROLDAN, MYRNA E Ot 272.4 02/19/2015 SASHA ROLDAN, MYRNA E Ot 285.9 02/19/2015 SASHA ROLDAN, MYRNA E Ot 300.0 0 02/19/2015 SASHA ROLDAN, MYRNA E Ot 401.9 02/19/2015 SASHA ROLDAN, MYRNA E Ot 414.0 1 02/19/2015 SASHA ROLDAN, MYRNA E Ot 427.3 1 02/19/2015 SASHA ROLDAN, MYRNA E Ot 496 02/19/2015 SASHA ROLDAN, MYRNA E Ot 530.8 1 02/19/2015 SASHA ROLDAN, MYRNA E Ot 715.3 1 02/19/2015 SASHA ROLDAN, MYRNA E Ot 715.3 5 02/19/2015 SASHA ROLDAN, MYRNA E Ot 721.9 0 02/19/2015 SASHA ROLDAN, MYRNA E Ot 733.0 0 02/19/2015 SASHA ROLDAN, MYRNA E Ot 786.0 9 02/19/2015 SASHA ROLDAN, MYRNA E Ot 788.4 3 02/19/2015 SASHA ROLDAN, MYRNA E Ot V15.8 2 02/19/2015 SASHA ROLDAN, MYRNA E Ot V45.8 1 02/19/2015 SASHA ROLDAN, MYRNA E Ot V46.2 02/19/2015 SASHA ROLDAN, MYRNA E Ot V57.8 9 02/20/2015 SASHA ROLDAN, MYRNA E Ot 272.4 02/20/2015 SASHA ROLDAN, MYRNA E Ot 285.9 02/20/2015 SASHA ROLDAN, MYRNA E Ot 300.0 0 02/20/2015 SASHA ROLDAN, MYRNA E Ot 401.9 02/20/2015 SASHA ROLDAN, MYRNA E Ot 414.0 1 02/20/2015 SASHA ROLDAN, MYRNA E Ot 427.3 1 02/20/2015 SASHA ROLDAN, MYRNA E Ot 496 02/20/2015 SASHA ROLDAN, MYRNA E Ot 530.8 1 02/20/2015 SASHA ROLDAN, MYRNA E Ot 715.3 1 02/20/2015 SASHA ROLDAN, MYRNA E Ot 715.3 5 02/20/2015 SASHA ROLDAN, MYRNA E Ot 721.9 0 02/20/2015 SASHA ROLDAN, MYRNA E Ot 733.0 0 02/20/2015 SASHA ROLDAN, MYRNA E Ot 786.0 9 02/20/2015 SASHA ROLDAN, MYRNA E Ot 788.4 3 02/20/2015 ASSHA ROLDAN, MYRNA E Ot V15.8 2 02/20/2015 SASHA ROLDAN, MYRNA E Ot V45.8 1 02/20/2015 SASHA ROLDAN, MYRNA E Ot V46.2 02/20/2015 SASHA ROLDAN, MYRNA E Ot V57.8 9 02/21/2015 SASHA ROLDAN, MYRNA E Ot 272.4 02/21/2015 SASHA ROLDAN, MYRNA E Ot 285.9 02/21/2015 SASHA ROLDAN, MYRNA E Ot 300.0 0 02/21/2015 SASHA ROLDAN, MYRNA E Ot 401.9 02/21/2015 SASHA ROLDAN, MYRNA E Ot 414.0 1 02/21/2015 SASHA ROLDAN, MYRNA E Ot 427.3 1 02/21/2015 SASHA ROLDAN, MYRNA E Ot 496 02/21/2015 SASHA ROLDAN, MYRNA E Ot 530.8 1 02/21/2015 SASHA ROLDAN, MYRNA E Ot 715.3 1 02/21/2015 SASHA ROLDAN, MYRNA E Ot 715.3 5 02/21/2015 SASHA ROLDAN, MYRNA E Ot 721.9 0 02/21/2015 SASHA ROLDAN, MYRNA E Ot 733.0 0 02/21/2015 SASHA ROLDAN, MYRNA E Ot 786.0 9 02/21/2015 SASHA ROLDAN, MYRNA E Ot 788.4 3 02/21/2015 SASHA ROLDAN, MYRNA E Ot V15.8 2 02/21/2015 SASHA ROLDAN, MYRNA E Ot V45.8 1 02/21/2015 SASHA ROLDAN, MYRNA E Ot V46.2 02/21/2015 SASHA ROLDAN, MYRNA E Ot V57.8 9 02/21/2015 SASHA ROLDAN, MYRNA E Ot 272.4 02/21/2015 SASHA ROLDAN, MYRNA E Ot 285.9 02/21/2015 SASHA ROLDAN, MYRNA E Ot 300.0 0 02/21/2015 SASHA ROLDAN, MYRNA E Ot 401.9 02/21/2015 SASHA ROLDAN, MYRNA E Ot 414.0 1 02/21/2015 SASHA ROLDAN, MYRNA E Ot 427.3 1 02/21/2015 SASHA ROLDAN, MYRNA E Ot 496 02/21/2015 SASHA ROLDAN, MYRNA E Ot 530.8 1 02/21/2015 SASHA ROLDAN, MYRNA E Ot 715.3 1 02/21/2015 SASHA ROLDAN, MYRNA E Ot 715.3 5 02/21/2015 SASHA ROLDAN, MYRNA E Ot 721.9 0 02/21/2015 SASHA ROLDAN, MYRNA E Ot 733.0 0 02/21/2015 SASHA ROLDAN, MYRNA E Ot 786.0 9 02/21/2015 SASHA ROLDAN, MYRNA E Ot 788.4 3 02/21/2015 SASHA ROLDAN, MYRNA E Ot V15.8 2 02/21/2015 SASHA ROLDAN, MYRNA E Ot V45.8 1 02/21/2015 SASHA ROLDAN, MYRNA E Ot V46.2 02/21/2015 SASHA ROLDAN, MYRNA E Ot V57.8 9 02/21/2015 SASHA ROLDAN, MYRNA E Ot 272.4 02/21/2015 SASHA ROLDAN, MYRNA E Ot 285.9 02/21/2015 SASHA ROLDAN, MYRNA E Ot 300.0 0 02/21/2015 SASHA ROLDAN, MYRNA E Ot 401.9 02/21/2015 SASHA ROLDAN, MYRNA E Ot 414.0 1 02/21/2015 SASHA ROLDAN, MYRNA E Ot 427.3 1 02/21/2015 SASHA ROLDAN, MYRNA E Ot 496 02/21/2015 SASHA ROLDAN, MYRNA E Ot 530.8 1 02/21/2015 SASHA ROLDAN, MYRNA E Ot 715.3 1 02/21/2015 SASHA ROLDAN, MYRNA E Ot 715.3 5 02/21/2015 SASHA ROLDAN, MYRNA E Ot 721.9 0 02/21/2015 SASHA ROLDAN, MYRNA E Ot 733.0 0 02/21/2015 SASHA ROLDAN, MYRNA E Ot 786.0 9 02/21/2015 SASHA ROLDAN, MYRNA E Ot 788.4 3 02/21/2015 SASHA ROLDAN, MYRNA E Ot V15.8 2 02/21/2015 SASHA ROLDAN, MYRNA E Ot V45.8 1 02/21/2015 SASHA ROLDAN, MYRNA E Ot V46.2 02/21/2015 SASHA ROLDAN, MYRNA E Ot V57.8 9 02/22/2015 SASHA ROLDAN, MYRNA E Ot 272.4 02/22/2015 SASHA ROLDAN, MYRNA E Ot 285.9 02/22/2015 SASHA ROLDAN, MYRNA E Ot 300.0 0 02/22/2015 SASHA ROLDAN, MYRNA E Ot 401.9 02/22/2015 SASHA ROLDAN, MYRNA E Ot 414.0 1 02/22/2015 SASHA ROLDAN, MYRNA E Ot 427.3 1 02/22/2015 SASHA ROLDAN, MYRNA E Ot 496 02/22/2015 SASHA ROLDAN, MYRNA E Ot 530.8 1 02/22/2015 SASHA ROLDAN, MYRNA E Ot 715.3 1 02/22/2015 SASHA ROLDAN, MYRNA E Ot 715.3 5 02/22/2015 SASHA ROLDAN, MYRNA E Ot 721.9 0 02/22/2015 SASHA ROLDAN, MYRNA E Ot 733.0 0 02/22/2015 SASHA ROLDAN, MYRNA E Ot 786.0 9 02/22/2015 SASHA ROLDAN, MYRNA E Ot 788.4 3 02/22/2015 SASHA ROLDAN, MYRNA E Ot V15.8 2 02/22/2015 SASHA ROLDAN, MYRNA E Ot V45.8 1 02/22/2015 SASHA ROLDAN, MYRNA E Ot V46.2 02/22/2015 SASHA ROLDAN, MYRNA E Ot V57.8 9 02/23/2015 SASHA ROLDAN, MYRNA E Ot 272.4 02/23/2015 SASHA ROLDAN, MYRNA E Ot 285.9 02/23/2015 SASHA ROLDAN, MYRNA E Ot 300.0 0 02/23/2015 SASHA ROLDAN, MYRNA E Ot 401.9 02/23/2015 SASHA ROLDAN, MYRNA E Ot 414.0 1 02/23/2015 SASHA ROLDAN, MYRNA E Ot 427.3 1 02/23/2015 SASHA ROLDAN, MYRNA E Ot 496 02/23/2015 SASHA ROLDAN, MYRNA E Ot 530.8 1 02/23/2015 SASHA ROLDAN, MYRNA E Ot 715.3 1 02/23/2015 SASHA ROLDAN, MYRNA E Ot 715.3 5 02/23/2015 SASHA ROLDAN, MYRNA E Ot 721.9 0 02/23/2015 SASHA ROLDAN, MYRNA E Ot 733.0 0 02/23/2015 SASHA ROLDAN, MYRNA E Ot 786.0 9 02/23/2015 SASHA ROLDAN, MYRNA E Ot 788.4 3 02/23/2015 SASHA ROLDAN, MYRNA E Ot V15.8 2 02/23/2015 SASHA ROLDAN, MYRNA E Ot V45.8 1 02/23/2015 SASHA ROLDAN, MYRNA E Ot V46.2 02/23/2015 SASHA ROLDAN, MYRNA E Ot V57.8 9 02/24/2015 SASHA ROLDAN MYRNA E Ot 272.4 02/24/2015 SASHA ROLDAN MYRNA E Ot 285.9 02/24/2015 SASHA ROLDAN MYRNA E Ot 300.0 0 02/24/2015 SASHA ROLDAN MYRNA E Ot 401.9 02/24/2015 SASHA ROLDAN MYRNA E Ot 414.0 1 02/24/2015 SASHA ROLDAN MYRNA E Ot 427.3 1 02/24/2015 SASHA ROLDAN MYRNA E Ot 496 02/24/2015 SASHA ROLDAN MYRNA E Ot 530.8 1 02/24/2015 SASHA ROLDAN MYRNA E Ot 715.3 1 02/24/2015 SASHA ROLDAN MYRNA E Ot 715.3 5 02/24/2015 SASHA ROLDAN MYRNA E Ot 721.9 0 02/24/2015 SASHA ROLDAN MYRNA E Ot 733.0 0 02/24/2015 SASHA ROLDAN MYRNA E Ot 786.0 9 02/24/2015 SASHA ROLDAN MYRNA E Ot 788.4 3 02/24/2015 SASHA ROLDAN MYRNA E Ot V15.8 2 02/24/2015 SASHA ROLDAN MYRNA E Ot V45.8 1 02/24/2015 SASHA ROLDAN MYRNA E Ot V46.2 02/24/2015 SASHA ROLDAN MYRNA E Ot V57.8 9 02/24/2015 SASHA ROLDAN MYRNA E Ot 238.7 1 ESSENTIAL THROMBOCYTHEMIA 02/24/2015 SASHA ROLDAN MYRNA E Ot 272.4 HYPERLIPIDEMIA NEC/NOS 02/24/2015 SASHA ROLDAN MYRNA E Ot 276.1 HYPOSMOLALITY 02/24/2015 SASHA ROLDAN MYRNA E Ot 285.9 ANEMIA NOS 02/24/2015 SASHA ROLDAN MYRNA E Ot 294.9 UNSPEC 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 02/24/2015 SASHA ROLDAN MYRNA E Ot 300.0 0 ANXIETY STATE NOS 02/24/2015 SASHA ROLDAN MYRNA E Ot 401.9 HYPERTENSION NOS 02/24/2015 SASHA ROLDAN MYRNA E Ot 414.0 1 CORONARY ATHEROSCLEROSIS OF [place] CORON 02/24/2015 SASHA ROLDAN MYRNA E Ot 427.3 1 ATRIAL FIBRILLATION 02/24/2015 SASHA ROLDAN MYRNA E Ot 433.1 0 CAROTID ARTERY OCCLUSION W O CEREBRAL IN 02/24/2015 SASHA ROLDAN MYRNA E Ot 433.3 0 MULT BILTRAL ARTERY OCCLUSION WO CEREBRA 02/24/2015 SASHA ROLDAN, MYRNA E Ot 496 CHR AIRWAY OBSTRUCT NEC 02/24/2015 MYRNA BAEZ MD Ot 511.9 PLEURAL EFFUSION NOS 02/24/2015 MYRNA BAEZ MD Ot 530.8 1 ESOPHAGEAL REFLUX 02/24/2015 MYRNA BAEZ MD E Ot 682.2 CELLULITIS OF [place] 02/24/2015 MYRNA BAEZ MD E Ot 715.3 1 LOC OSTEOARTH NOS-SHLDER 02/24/2015 MYRNA BAEZ MD Ot 715.3 5 LOC OSTEOARTH NOS-PELVIS 02/24/2015 MYRNA BAEZ MD E Ot 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 02/24/2015 MYRNA BAEZ MD Ot 733.0 0 OSTEOPOROSIS NOS 02/24/2015 MYRNA BAEZ MD E Ot 786.0 9 RESPIRATORY ABNORM NEC 02/24/2015 MYRNA BAEZ MD Ot 788.4 3 NOCTURIA 02/24/2015 MYRNA BAEZ MD Ot 998.5 9 OTH POSTOPER INFECTION 02/24/2015 MYRNA BAEZ MD E Ot V15.8 2 HISTORY OF TOBACCO USE 02/24/2015 MYRNA BAEZ MD Ot V45.8 1 AORTOCORONARY BYPASS 02/24/2015 MYRNA BAEZ MD Ot V46.2 SUPPLEMENTAL OXYGEN 02/24/2015 MYRNA BAEZ MD Ot V57.8 9 REHABILITATION PROC NEC 02/25/2015 JUAREZ DAWSON MD [...] 02/27/2015 CAROLINE MENDOZA MD Ot 338.29 02/27/2015 REJI ROLDAN, CAROLINE [place] Ot 722.6 02/27/2015 CAROLINE MENDOZA MD Ot 724.2 02/27/2015 CAROLINE MENDOZA MD Ot 724.4 02/27/2015 MAX DHILLON IC DESIGNER 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 Ot 401.1 02/27/2015 MAX DHILLON IC DESIGNER 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 Ot 424.1 02/27/2015 MAX DHILLON IC DESIGNER 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 Ot 785.2 02/27/2015 MAX DHILLON IC DESIGNER 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 Ot 786.05 02/27/2015 ANDRE HERNANDEZ DO Ot 715.91 02/27/2015 ANDRE HERNANDEZ DO Ot 727.61 02/27/2015 DIANNA MACHADO MD Ot 278. 00 02/27/2015 DIANNA MACHADO MD Ot 721. 3 02/27/2015 DIANNA MACHADO MD Ot 724. 6 02/27/2015 DIANNA MACHADO MD Ot 729. 1 02/27/2015 DIANNA MACHADO MD Ot V58. 69 02/27/2015 DIANNA MACHADO MD Ot V85. 35 02/27/2015 DIANNA MACHADO MD Ot 278. 00 02/27/2015 DIANNA MACHADO MD Ot 715. 95 02/27/2015 DIANNA MACHADO MD Ot 721. 3 02/27/2015 DIANNA MACHADO MD Ot 729. 1 02/27/2015 DIANNA MACHADO MD Ot V58. 69 02/27/2015 DIANNA MACHADO MD Ot V85. 33 02/27/2015 SHANIQUE VEGA MD Ot 791 .9 02/28/2015 SHANIQUE VEGA MD Ot 041 .3 KLEBSIELLA PNEUMONIAE 02/28/2015 SHANIQUE VEGA MD Ot 298 .9 PSYCHOSIS NOS 02/28/2015 SHANIQUE VEGA MD Ot 599 .0 URIN TRACT INFECTION NOS 02/28/2015 SHANIQUE VEGA MD Ot 719.41 JOINT PAIN-SHLDER 02/28/2015 SHANIQUE VEGA MD Ot 786.50 CHEST PAIN NOS 02/28/2015 SHANIQUE VEGA MD Ot V09.80 INF RES TO DRUGS NEC, WO RES TO MULT LARA 02/28/2015 GARY ROLDAN, SHANIQUE Funk Ot V15.88 HISTORY OF FALL 02/28/2015 GARY ROLDAN, SHANIQUE Funk Ot V58.69 OT MED,LT,CURRENT USE 02/28/2015 GARY ROLDAN, SHANIQUE Funk Ot 041 .3 02/28/2015 GARY ROLDAN, SHANIQUE Funk Ot 298 .9 02/28/2015 GARY ROLDAN, SHANIQUE Funk Ot 599 .0 02/28/2015 GARY ROLDAN, SHANIQUE Funk Ot 719.41 02/28/2015 GARY ROLDAN, SHANIQUE Funk Ot 786.50 02/28/2015 GARY ROLDAN, SHANIQUE Funk Ot V09.80 02/28/2015 GARY ROLDAN, SHANIQUE Funk Ot V15.88 02/28/2015 GARY ROLDAN, SHANIQUE Funk Ot V58.69 03/11/2015 ELIZABETH ROLDAN, SHARIF N Ot 250.00 03/11/2015 ELIZABETH ROLDAN, SHARIF N Ot 272 .0 03/11/2015 ELIZABETH ROLDAN, SHARIF N Ot 272 .4 03/11/2015 ELIZABETH ROLDAN, SHARIF N Ot 275 .2 03/11/2015 ELIZABETH ROLDAN, SHARIF N Ot 276 .1 03/11/2015 ELIZABETH ROLDAN, SHARIF N Ot 276 .8 03/11/2015 ELIZABETH ROLDAN, SHARIF N Ot 285 .9 03/11/2015 ELIZABETH ROLDAN, SHARIF N Ot 300.01 03/11/2015 ELIZABETH ROLDAN, SHARIF N Ot 305 .1 03/11/2015 ELIZABETH ROLDAN, SHARIF N Ot 311 03/11/2015 ELIZABETH ROLDAN, SHARIF N Ot 401 .9 03/11/2015 ELIZABETH ROLDAN, SHARIF N Ot 414.00 03/11/2015 ELIZABETH ROLDAN, SHARIF N Ot 428 .0 03/11/2015 ELIZABETH ROLDAN, SHARIF N Ot 428.33 03/11/2015 ELIZABETH ROLDAN, SHARIF N Ot 433.10 03/11/2015 ELIZABETH ROLDAN, SHARIF N Ot 433.30 03/11/2015 ELIZABETH ROLDAN, SHARIF N Ot 440 .1 03/11/2015 ELIZABETH ROLDAN, SHARIF N Ot 440.20 03/11/2015 ELIZABETH ROLDAN, SHARIF N Ot 441 .4 03/11/2015 ELIZABETH ROLDAN, SHARIF N Ot 442 .9 03/11/2015 ELIZABETH ROLDAN, SHARIF N Ot 491.20 03/11/2015 ELIZABETH ROLDAN, SHARIF N Ot 715.90 03/11/2015 ELIZABETH ROLDAN, SHARIF N Ot 722 .6 03/11/2015 ELIZABETH ROLDAN, SHARIF N Ot 780 .1 03/11/2015 ELIZABETH ROLDAN, SHARIF N Ot 799.02 03/11/2015 ELIZABETH ROLDAN, SHARIF N Ot 920 03/11/2015 ELIZABETH ROLDAN, SHARIF N Ot E849.7 03/11/2015 ELIZABETH ROLDAN, SHARIF N Ot E885.9 03/11/2015 ELIZABETH ROLDAN, SHARIF N Ot V13.02 03/11/2015 ELIZABETH ROLDAN, SHARIF N Ot V45.81 03/11/2015 ELIZABETH ROLDAN, SHARIF N Ot 250.00 03/11/2015 ELIZABETH ROLDAN, SHARIF N Ot 272 .0 03/11/2015 ELIZABETH ROLDAN, SHARIF N Ot 272 .4 03/11/2015 ELIZABETH ROLDAN, SHARIF N Ot 275 .2 03/11/2015 ELIZABETH ROLDAN, SHARIF N Ot 276 .1 03/11/2015 ELIZABETH ROLDAN, SHARIF N Ot 276 .8 03/11/2015 ELIZABETH ROLDAN, SHARIF N Ot 285 .9 03/11/2015 ELIZABETH ROLDAN, SHARIF N Ot 300.01 03/11/2015 ELIZABETH ROLDAN, SHARIF N Ot 305 .1 03/11/2015 ELIZABETH ROLDAN, SHARFI N Ot 311 03/11/2015 ELIZABETH ROLDAN, SHARIF N Ot 401 .9 03/11/2015 ELIZABETH ROLDAN, SHARIF N Ot 414.00 03/11/2015 ELIZABETH ROLDAN, SHARIF N Ot 428 .0 03/11/2015 ELIZABETH ROLDAN, SHARIF N Ot 428.33 03/11/2015 ELIZABETH ROLDAN, SHARIF N Ot 433.10 03/11/2015 ELIZABETH ROLDAN, SHARIF N Ot 433.30 03/11/2015 ELIZABETH ROLDAN, SHARIF N Ot 440 .1 03/11/2015 ELIZABETH ROLDAN, SHARIF N Ot 440.20 03/11/2015 ELIZABETH ROLDAN, SHARIF N Ot 441 .4 03/11/2015 ELIZABETH ROLDAN, SHARIF N Ot 442 .9 03/11/2015 ELIZABETH ROLDAN, SHARIF N Ot 491.20 03/11/2015 ELIZABETH ROLDAN, SHARIF N Ot 715.90 03/11/2015 ELIZABETH ROLDAN, SHARIF N Ot 722 .6 03/11/2015 ELIZABETH ROLDAN, SHARIF N Ot 780 .1 03/11/2015 ELIZABETH ROLDAN, SHARIF N Ot 799.02 03/11/2015 ELIZABETH ROLDAN, SHARIF N Ot 920 03/11/2015 ELIZABETH ROLDAN, SHARIF N Ot E849.7 03/11/2015 ELIZABETH ROLDAN, SHARIF N Ot E885.9 03/11/2015 ELIZABETH ROLDAN, SHARIF N Ot V13.02 03/11/2015 ELIZABETH ORLDAN, SHARIF N Ot V45.81 03/12/2015 ELIZABETH ROLDAN, SHARIF N Ot 250.00 03/12/2015 ELIZABETH ROLDAN, SHARIF N Ot 272 .0 03/12/2015 ELIZABETH ROLDAN, SHARIF N Ot 272 .4 03/12/2015 ELIZABETH ROLDAN, SHARIF N Ot 275 .2 03/12/2015 ELIZABETH ROLDAN, SHARIF N Ot 276 .1 03/12/2015 ELIZABETH ROLDAN, SHARIF N Ot 276 .8 03/12/2015 ELIZABETH ROLDAN, SHARIF N Ot 285 .9 03/12/2015 ELIZABETH ROLDAN, SHARIF N Ot 300.01 03/12/2015 ELIZABETH ROLDAN, SHARIF N Ot 305 .1 03/12/2015 ELIZABETH ROLDAN, SHARIF N Ot 311 03/12/2015 ELIZABETH ROLDAN, SHARIF N Ot 401 .9 03/12/2015 ELIZABETH ROLDAN, SHARIF N Ot 414.00 03/12/2015 ELIZABETH ROLDAN, SHARIF N Ot 428 .0 03/12/2015 ELIZABETH ROLDAN, SHARIF N Ot 428.33 03/12/2015 ELIZABETH ROLDAN, SHARIF N Ot 433.10 03/12/2015 ELIZABETH ROLDAN, SHARIF N Ot 433.30 03/12/2015 ELIZABETH ROLDAN, SHARIF N Ot 440 .1 03/12/2015 ELIZABETH ROLDAN, SHARIF N Ot 440.20 03/12/2015 ELIZABETH ROLDAN, SHARIF N Ot 441 .4 03/12/2015 ELIZABETH ROLDAN, SHARIF N Ot 442 .9 03/12/2015 ELIZABETH ROLDAN, SHARIF N Ot 491.20 03/12/2015 ELIZABETH ROLDAN, SHARIF N Ot 715.90 03/12/2015 ELIZABETH ROLDAN, SHARIF N Ot 722 .6 03/12/2015 ELIZABETH ROLDAN, SHARIF N Ot 780 .1 03/12/2015 ELIZABETH ROLDAN, SHARIF N Ot 799.02 03/12/2015 ELIZABETH ROLDAN, SHARIF N Ot 920 03/12/2015 ELIZBAETH ROLDAN, SHARIF N Ot E849.7 03/12/2015 ELIZABETH ROLDAN, SHARIF N Ot E885.9 03/12/2015 ELIZABETH ROLDAN, SHARIF N Ot V13.02 03/12/2015 ELIZABETH ROLDAN, SHARIF N Ot V45.81 03/13/2015 ELIZABETH ROLDAN, SHARIF N Ot 250.00 03/13/2015 ELIZABETH ROLDAN, SHARIF N Ot 272 .0 03/13/2015 ELIZABETH ROLDAN, SHARIF N Ot 272 .4 03/13/2015 ELIZABETH ROLDAN, SHARIF N Ot 275 .2 03/13/2015 ELIZABETH ROLDAN, SHARIF N Ot 276 .1 03/13/2015 ELIZABETH ROLDAN, SHARIF N Ot 276 .8 03/13/2015 ELIZABETH ROLDAN, SHARIF N Ot 285 .9 03/13/2015 ELIZABETH ROLDAN, SHARIF N Ot 300.01 03/13/2015 ELIZABETH RLODAN, SHARIF N Ot 305 .1 03/13/2015 ELIZABETH ROLDAN, SHARIF N Ot 311 03/13/2015 ELIZABETH ROLDAN, SHARIF N Ot 401 .9 03/13/2015 ELIZABETH ROLDAN, SHARIF N Ot 414.00 03/13/2015 ELIZABETH ROLDAN, SHARIF N Ot 428 .0 03/13/2015 ELIZABETH ROLDAN, SHARIF N Ot 428.33 03/13/2015 ELIZABETH ROLDAN, SHARIF N Ot 433.10 03/13/2015 ELIZABETH ROLDAN, SHARIF N Ot 433.30 03/13/2015 ELIZABETH ROLDAN, SHARIF N Ot 440 .1 03/13/2015 ELIZABETH ROLDAN, SHARIF N Ot 440.20 03/13/2015 ELIZABETH ROLDAN, SHARIF N Ot 441 .4 03/13/2015 ELIZABETH ROLDAN, SHARIF N Ot 442 .9 03/13/2015 ELIZABETH ROLDAN, SHARIF N Ot 491.20 03/13/2015 ELIZABETH ROLDAN, SHRAIF N Ot 715.90 03/13/2015 ELIZABETH ROLDAN, SHARIF N Ot 722 .6 03/13/2015 ELIZABETH ROLDAN, SHARIF N Ot 780 .1 03/13/2015 ELIZABETH ROLDAN, SHARIF N Ot 799.02 03/13/2015 ELIZABETH ROLDAN, SHARIF N Ot 920 03/13/2015 ELIZABETH ROLDAN, SHARIF N Ot E849.7 03/13/2015 ELIZABETH ROLDAN, SHARIF N Ot E885.9 03/13/2015 ELIZABETH ROLDAN, SHARIF N Ot V13.02 03/13/2015 ELIZABETH ROLDAN, SHARIF N Ot V45.81 03/14/2015 ELIZABETH ROLDAN, SHARIF N Ot 250.00 03/14/2015 ELIZABETH ROLDAN, SHARIF N Ot 272 .0 03/14/2015 ELIZABETH ROLDAN, SHARIF N Ot 272 .4 03/14/2015 ELIZABETH ROLDAN, SHARIF N Ot 275 .2 03/14/2015 ELIZABETH ROLDAN, SHARIF N Ot 276 .1 03/14/2015 ELIZABETH ROLDAN, SHARIF N Ot 276 .8 03/14/2015 ELIZABETH ROLDAN, SHARIF N Ot 285 .9 03/14/2015 ELIZABETH ROLDAN, SHARIF N Ot 300.01 03/14/2015 ELIZABETH ROLDAN, SHARIF N Ot 305 .1 03/14/2015 ELIZABETH ROLDAN, SHARIF N Ot 311 03/14/2015 ELIZABETH ROLDAN, SHARIF N Ot 401 .9 03/14/2015 ELIZABETH ROLDAN, SHARIF N Ot 414.00 03/14/2015 ELIZABETH ROLDAN, SHARIF N Ot 428 .0 03/14/2015 ELIZABETH ROLDAN, SHARIF N Ot 428.33 03/14/2015 ELIZABETH ROLDAN, SHARIF N Ot 433.10 03/14/2015 ELIZABETH ROLDAN, SHARIF N Ot 433.30 03/14/2015 ELIZABETH ROLDAN, SHARIF N Ot 440 .1 03/14/2015 ELIZABETH ROLDAN, SHARIF N Ot 440.20 03/14/2015 ELIZABETH ROLDAN, SHARIF N Ot 441 .4 03/14/2015 ELIZABETH ROLDAN, SHARIF N Ot 442 .9 03/14/2015 ELIZABETH ROLDAN, SHARIF N Ot 491.20 03/14/2015 ELIZABETH ROLDAN, SHARIF N Ot 715.90 03/14/2015 ELIZABETH ROLDAN, SHARIF N Ot 722 .6 03/14/2015 ELIZABETH ROLDAN, SHARIF N Ot 780 .1 03/14/2015 ELIZABETH ROLDAN, SHARIF N Ot 799.02 03/14/2015 ELIZABETH ROLDAN, SHARIF N Ot 920 03/14/2015 ELIZABETH ROLDAN, SHARIF N Ot E849.7 03/14/2015 ELIZABETH ROLDAN, SHARIF N Ot E885.9 03/14/2015 ELIZABETH ROLDAN, SHARIF N Ot V13.02 03/14/2015 ELIZABETH ROLDAN, SHARIF N Ot V45.81 03/14/2015 ELIZABETH ROLDAN, SHARIF N Ot 250.00 03/14/2015 ELIZABETH ROLDAN, SHARIF N Ot 272 .0 03/14/2015 ELIZABETH ROLDAN, SHARIF N Ot 272 .4 03/14/2015 ELIZABETH ROLDAN, SHARIF N Ot 275 .2 03/14/2015 ELIZABETH ROLDAN, SHARIF N Ot 276 .1 03/14/2015 ELIZABETH ROLDAN, SHARIF N Ot 276 .8 03/14/2015 ELIZABETH ROLDAN, SHARIF N Ot 285 .9 03/14/2015 ELIZABETH ROLDAN, SHARIF N Ot 300.01 03/14/2015 ELIZABETH ROLDAN, SHARIF N Ot 305 .1 03/14/2015 ELIZABETH ROLDAN, SHARIF N Ot 311 03/14/2015 ELIZABETH ROLDAN, SHARIF N Ot 401 .9 03/14/2015 ELIZABETH ROLDAN, SHARIF N Ot 414.00 03/14/2015 ELIZABETH ROLDAN, SHARIF N Ot 428 .0 03/14/2015 ELIZABETH ROLDAN, SHARIF N Ot 428.33 03/14/2015 ELIZABETH ROLDAN, SHARIF N Ot 433.10 03/14/2015 ELIZABETH ROLDAN, SHARIF N Ot 433.30 03/14/2015 ELIZABETH ROLDAN, SHARIF N Ot 440 .1 03/14/2015 ELIZABETH ROLDAN, SHARIF N Ot 440.20 03/14/2015 ELIZABETH ROLDAN, SHARIF N Ot 441 .4 03/14/2015 ELIZABETH ROLDAN, SHARIF N Ot 442 .9 03/14/2015 ELIZABETH ROLDAN, SHARIF N Ot 491.20 03/14/2015 ELIZABETH ROLDAN, SHARIF N Ot 715.90 03/14/2015 ELIZABETH ROLDAN, SHARIF N Ot 722 .6 03/14/2015 ELIZABETH ROLDAN, SHARIF N Ot 780 .1 03/14/2015 ELIZABETH ROLDAN, SHARIF N Ot 799.02 03/14/2015 ELIZABETH ROLDAN, SHARIF N Ot 920 03/14/2015 ELIZABETH ROLDAN, SHARIF N Ot E849.7 03/14/2015 ELIZABETH ROLDAN, SHARIF N Ot E885.9 03/14/2015 ELIZABETH ROLDAN, SHARIF N Ot V13.02 03/14/2015 ELIZABETH ROLDAN, SHARIF N Ot V45.81 03/15/2015 ELIZABETH ROLDAN, SHARIF N Ot 250.00 03/15/2015 ELIZABETH ROLDAN, SHARIF N Ot 272 .0 03/15/2015 ELIZABETH ROLDAN, SHARIF N Ot 272 .4 03/15/2015 ELIZABETH ROLDAN, SHARIF N Ot 275 .2 03/15/2015 ELIZABETH ROLDAN, SHARIF N Ot 276 .1 03/15/2015 ELIZABETH ROLDAN, SHARIF N Ot 276 .8 03/15/2015 ELIZABETH ROLDAN, SHARIF N Ot 285 .9 03/15/2015 ELIZABETH ROLDAN, SHARIF N Ot 300.01 03/15/2015 ELIZABETH ROLDAN, SHARIF N Ot 305 .1 03/15/2015 ELIZABETH ROLDAN, SHARIF N Ot 311 03/15/2015 ELIZABETH ROLDAN, SHARIF N Ot 401 .9 03/15/2015 ELIZABETH ROLDAN, SHARIF N Ot 414.00 03/15/2015 ELIZABETH ROLDAN, SHARIF N Ot 428 .0 03/15/2015 SHARIF JOHNSON MD N Ot 428.33 03/15/2015 SHARIF JOHNSON MD Ot 433.10 03/15/2015 SHARIF JOHNSON MD Ot 433.30 03/15/2015 SHARIF JOHNSON MD Ot 440 .1 03/15/2015 SHARIF JOHNSON MD Ot 440.20 03/15/2015 SHARIF JOHNSON MD Ot 441 .4 03/15/2015 SHARIF JOHNSON MD N Ot 442 .9 03/15/2015 SHARIF JOHNSON MD N Ot 491.20 03/15/2015 SHARIF JOHNSON MD N Ot 715.90 03/15/2015 SHARIF JOHNSON MD Ot 722 .6 03/15/2015 SHARIF JOHNSON MD Ot 780 .1 03/15/2015 SHARIF JOHNSON MD Ot 799.02 03/15/2015 SHARIF JOHNSON MD Ot 920 03/15/2015 SHARIF JOHNSON MD Ot E849.7 03/15/2015 SHARIF JOHNSON MD Ot E885.9 03/15/2015 SHARIF JOHNSON MD Ot V13.02 03/15/2015 SHARIF JOHNSON MD Ot V45.81 03/15/2015 SHARIF JOHNSON MD Ot 041 .3 KLEBSIELLA PNEUMONIAE 03/15/2015 SHARIF JOHNSON MD Ot 250.00 DIAB KENDAL WO COMPL, TYPE II OR UNSPEC TY 03/15/2015 SHARIF JOHNSON MD Ot 272 .0 PURE HYPERCHOLESTEROLEM 03/15/2015 SHARIF JOHNSON MD N Ot 272 .4 HYPERLIPIDEMIA NEC/NOS 03/15/2015 SHARIF JOHNSON MD Ot 275 .2 DIS MAGNESIUM METABOLISM 03/15/2015 SHARIF JOHNSON MD Ot 276 .1 HYPOSMOLALITY 03/15/2015 SHARIF JOHNSON MD Ot 276 .8 HYPOPOTASSEMIA 03/15/2015 SHARIF JOHNSON MD Ot 285 .9 ANEMIA NOS 03/15/2015 SHARIF JOHNSON MD Ot 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 03/15/2015 SHARIF JOHNSON MD Ot 305 .1 TOBACCO USE DISORDER 03/15/2015 SHARIF JHONSON MD Ot 311 DEPRESSIVE DISORDER NEC 03/15/2015 SHARIF JOHNSON MD Ot 401 .9 HYPERTENSION NOS 03/15/2015 SHARIF JOHNSON MD Ot 414.00 CORON ATHEROSCLER NOS TYPE VESSEL, NATIV 03/15/2015 SHARIF JOHNSON MD Ot 428 .0 CONGESTIVE HEART FAILURE NOS 03/15/2015 SHARIF JOHNSON MD Ot 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 03/15/2015 SHARIF JOHNSNO MD Ot 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 ARTERY OCCLUSION W O CEREBRAL IN 03/15/2015 SHARIF JOHNSON MD Ot 433.30 MULT BILTRAL ARTERY OCCLUSION WO CEREBRA 03/15/2015 SHARIF JOHNSON MD Ot 440 .1 RENAL ARTERY ATHEROSCLER 03/15/2015 SHARIF JOHNSON MD Ot 440.20 ATHEROSCLEROSIS [place] ARTERIES EXTREMIT 03/15/2015 SHARIF JOHNSON MD Ot 441 .4 ABDOM AORTIC ANEURYSM 03/15/2015 SHARIF JOHNSON MD Ot 442 .9 03/15/2015 SHARIF JOHNSON MD Ot 491.20 03/15/2015 SHARIF JOHNSON MD Ot 491.21 OBSTR CHRONIC BRONCHITIS, W (ACUTE) EXAC 03/15/2015 SHARIF JOHNSON MD Ot 596.54 NEUROGENIC BLADDER, NOT OTHERWISE SPECIF 03/15/2015 SHARIF JOHNSON MD Ot 599 .0 URIN TRACT INFECTION NOS 03/15/2015 SHARIF JOHNSON MD Ot 715.90 03/15/2015 SHARIF JOHNSON MD Ot 722 .6 03/15/2015 SHARIF JOHNSON MD Ot 780 .1 HALLUCINATIONS 03/15/2015 SHARIF JOHNSON MD Ot 788.20 RETENTION OF URINE NOS 03/15/2015 SHARIF JOHNSON MD Ot 799.02 HYPOXEMIA 03/15/2015 SHARIF JOHNSON MD Ot 920 CONTUSION FACE/SCALP/NCK 03/15/2015 SHARIF JOHNSON MD Ot E849.7 ACCID IN RESIDENT INSTIT 03/15/2015 SHARIF JOHNSNO MD Ot E885.9 FALL FROM SLIPPING, TRIPPING, OR STUMBLI 03/15/2015 ELIZABETH ROLDAN, SHARIF Menjivar Ot V13.02 03/15/2015 ELIZABETH ROLDAN, SHARIF Menjivar Ot V45.81 AORTOCORONARY BYPASS 12/07/2015 Ot 388.30 12/07/2015 Ot 780.4 12/07/2015 Ot 796.2 12/07/2015 Ot 799.51 12/07/2015 REJI ROLDAN, CAROLINE Magaña Ot 338.29 12/07/2015 REJI ROLDAN, CAROLINE Magaña Ot 722.6 12/07/2015 REJI ROLDAN, CAROLINE Magaña Ot 724.2 12/07/2015 REJI ROLDAN, CAROLINE Magaña Ot 724.4 12/07/2015 MAX DHILLON IC DESIGNER 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 Ot 401.1 12/07/2015 MAX DHILLON IC DESIGNER 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 Ot 424.1 12/07/2015 MAX DHILLON IC DESIGNER 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 Ot 785.2 12/07/2015 MAX DHILLON IC DESIGNER 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 Ot 786.05 12/07/2015 ANDRE HERNANDEZ DO Ot 715.91 12/07/2015 ANDRE HERNANDEZ DO Ot 727.61 12/07/2015 JEANNETTE ROLDAN, DIANNA Adhikari Ot 278. 00 12/07/2015 DIANNA MACHADO MD Ot 721. 3 12/07/2015 DIANNA MACHADO MD Ot 724. 6 12/07/2015 DIANNA MACHADO MD Ot 729. 1 12/07/2015 DIANNA MACHADO MD Ot V58. 69 12/07/2015 DIANNA MACHADO MD Ot V85. 35 12/07/2015 DIANNA MACHADO MD Ot 278. 00 12/07/2015 DIANNA MACHADO MD Ot 715. 95 12/07/2015 DIANNA MACHADO MD Ot 721. 3 12/07/2015 DIANNA MACHADO MD Ot 729. 1 12/07/2015 DIANNA MACHADO MD Ot V58. 69 12/07/2015 DIANNA MACHADO MD Ot V85. 33 12/07/2015 GARY ROLDAN, SHANIQUE Funk Ot 791 .9 12/07/2015 CHARLES ROLDAN, TARA Arellano Ot M16.11 UNILATERAL PRIMARY OSTEOARTHRITIS, RIGHT 05/16/2016 VALERIA ROLDAN, PRUDENCE Garcia Ot E11 .9 TYPE 2 DIABETES MELLITUS WITHOUT COMPLIC 05/16/2016 PRUDENCE SHAW MD Ot F41 .0 PANIC DISORDER WITHOUT AGORAPHOBIA 05/16/2016 PRUDENCE SHAW MD Ot I10 ESSENTIAL (PRIMARY) HYPERTENSION 05/16/2016 PRUDENCE SHAW MD Ot I25.10 ATHSCL HEART DISEASE OF [place] CORONARY 05/16/2016 PRUDENCE SHAW MD Ot I71 .4 ABDOMINAL AORTIC ANEURYSM, WITHOUT RUPTU 05/16/2016 PRUDENCE SHAW MD Ot J44 .9 CHRONIC OBSTRUCTIVE PULMONARY DISEASE, U 05/16/2016 PRUDENCE SHAW MD Ot K21 .9 GASTRO-ESOPHAGEAL REFLUX DISEASE WITHOUT 05/16/2016 PRUDENCE SHAW MD Ot K59.00 CONSTIPATION, UNSPECIFIED 05/16/2016 PRUDENCE SHAW MD Ot Z87.891 PERSONAL HISTORY OF NICOTINE DEPENDENCE 05/16/2016 PRUDENCE SHAW MD Ot 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 11/22/2016 LUL NORWOOD MD Ot 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) 11/22/2016 LUL NORWOOD MD Ot R32 UNSPECIFIED URINARY INCONTINENCE 11/22/2016 LUL NORWOOD MD Ot Z01.8 18 ENCOUNTER FOR OTHER PREPROCEDURAL EXAMIN 11/22/2016 LUL NORWOOD MD Ot 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) 11/22/2016 LUL NORWOOD MD Ot R32 UNSPECIFIED URINARY INCONTINENCE 11/22/2016 LUL NORWOOD MD Ot Z01.8 18 ENCOUNTER FOR OTHER PREPROCEDURAL EXAMIN 11/28/2016 LUL NORWOOD MD Ot 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) 11/28/2016 LUL NORWOOD MD Ot R32 UNSPECIFIED URINARY INCONTINENCE 11/28/2016 LUL NORWOOD MD Ot Z01.8 18 ENCOUNTER FOR OTHER PREPROCEDURAL EXAMIN 11/28/2016 LUL NORWOOD MD Ot E11.9 TYPE 2 DIABETES MELLITUS WITHOUT COMPLIC 11/28/2016 LUL NORWOOD MD Ot N32.8 1 OVERACTIVE BLADDER 11/28/2016 LUL NORWOOD MD, Ot 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) 11/28/2016 ULL NORWOOD MD Ot 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 11/28/2016 LUL NORWOOD MD Ot Z79.8 4 DETENTION (CURRENT) USE OF ORAL HYPOGLYC 11/29/2016 LUL NORWOOD MD Ot E11.9 TYPE 2 DIABETES MELLITUS WITHOUT COMPLIC 11/29/2016 LUL NORWOOD MD Ot N32.8 1 OVERACTIVE BLADDER 11/29/2016 LUL NORWOOD MD Ot 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) 11/29/2016 LUL NORWOOD MD Ot 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 11/29/2016 LUL NORWOOD MD Ot Z79.8 4 DETENTION (CURRENT) USE OF ORAL HYPOGLYC 12/03/2016 LUL NORWOOD MD Ot E11.9 TYPE 2 DIABETES MELLITUS WITHOUT COMPLIC 12/03/2016 LUL NORWOOD MD Ot N32.8 1 OVERACTIVE BLADDER 12/03/2016 LUL NORWOOD MD Ot 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) 12/03/2016 LUL NORWOOD MD Ot 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 12/03/2016 LUL NORWOOD MD Ot Z79.8 4 CORPORATE DRIVER (CURRENT) USE OF ORAL HYPOGLYC 02/06/2017 LUL NORWOOD MD Ot N32.8 1 OVERACTIVE BLADDER 02/06/2017 LUL NORWOOD MD Ot 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) 02/06/2017 LUL NORWOOD MD Ot 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 02/06/2017 LUL NORWOOD MD Ot Z01.8 18 ENCOUNTER FOR OTHER PREPROCEDURAL EXAMIN 02/07/2017 LUL NORWOOD MD Ot N32.8 1 OVERACTIVE BLADDER 02/07/2017 LUL NORWOOD MD Ot 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) 02/07/2017 LUL NORWOOD MD Ot 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 02/07/2017 LUL NORWOOD MD Ot Z01.8 18 ENCOUNTER FOR OTHER PREPROCEDURAL EXAMIN 02/12/2017 LUL NORWOOD MD Ot N32.8 1 OVERACTIVE BLADDER 02/12/2017 LUL NORWOOD MD Ot 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) 02/12/2017 LUL NORWOOD MD Ot 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 02/13/2017 LUL NORWOOD MD Ot N32.8 1 OVERACTIVE BLADDER 02/13/2017 LUL NORWOOD MD Ot 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) 02/13/2017 LUL NORWOOD MD Ot 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 02/18/2017 LUL NORWOOD MD Ot N32.8 1 OVERACTIVE BLADDER 02/18/2017 LUL NORWOOD MD Ot 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) 02/18/2017 LUL NORWOOD MD Ot 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 10/08/2017 BISHNU ROLDAN FACC, CHELLE FACP CCDS Ot E78.5 HYPERLIPIDEMIA, UNSPECIFIED 10/08/2017 BISHNU ROLDAN FACC, ALI FACP CCDS Ot I10 ESSENTIAL (PRIMARY) HYPERTENSION 10/08/2017 BISHNU ROLDAN FACC, CHELLE FACP CCDS Ot I25.10 ATHSCL HEART DISEASE OF [place] CORONARY 10/08/2017 BISHNU ROLDAN FACC, ALI FACP CCDS Ot I48.0 PAROXYSMAL ATRIAL FIBRILLATION 10/08/2017 BISHNU ROLDAN FACC, ALI FACP CCDS Ot I65.29 OCCLUSION AND STENOSIS OF UNSPECIFIED CA 10/08/2017 BISHNU ROLDAN FACC, ALI FACP CCDS Ot R06.02 SHORTNESS OF BREATH 10/08/2017 BISHNU ROLDAN FACC, CHELLE FACP CCDS Ot E78.5 HYPERLIPIDEMIA, UNSPECIFIED 10/08/2017 BISHNU ROLDAN FACC, ALI FACP CCDS Ot I10 ESSENTIAL (PRIMARY) HYPERTENSION 10/08/2017 BISHNU ROLDAN FACC, ALI FACP CCDS Ot I25.10 ATHSCL HEART DISEASE OF [place] CORONARY 10/08/2017 BISHNU ROLDAN FACC, ALI FACP CCDS Ot I48.0 PAROXYSMAL ATRIAL FIBRILLATION 10/08/2017 BISHNU ROLDAN FACC, ALI FACP CCDS Ot I65.29 OCCLUSION AND STENOSIS OF UNSPECIFIED CA 10/15/2017 BISHNU ROLDAN FACC, ALI FACP CCDS Ot I11.0 HYPERTENSIVE HEART DISEASE WITH HEART FA 10/15/2017 CHELLE GOETZ MD, FACC FACP CCDS Ot I25.10 ATHSCL HEART DISEASE OF [place] CORONARY 10/15/2017 CHELLE GOETZ MD, FACC FACP CCDS Ot I48.0 PAROXYSMAL ATRIAL FIBRILLATION 10/15/2017 CHELLE GOETZ MD, FACC FACP CCDS Ot I48.91 UNSPECIFIED ATRIAL FIBRILLATION 10/15/2017 CHELLE GOETZ MD, FACC FACP CCDS Ot I48.92 UNSPECIFIED ATRIAL FLUTTER 10/15/2017 CHELLE GOETZ MD, FACC FACP CCDS Ot I50.33 ACUTE ON CHRONIC DIASTOLIC (CONGESTIVE) 10/15/2017 CHELLE GOETZ MD, FACCP CCDS Ot I65.23 OCCLUSION AND STENOSIS OF [...] MD, FACC FACP CCDS Ot Z79.899 OTHER DETENTION (CURRENT) DRUG THERAPY 10/15/2017 CHELLE GOETZ MD, FACC FACP CCDS Ot Z87.891 PERSONAL HISTORY OF NICOTINE DEPENDENCE 10/15/2017 CHELLE GOETZ MD, FACC FACP CCDS Ot Z88.1 ALLERGY STATUS TO OTHER ANTIBIOTIC AGENT 10/15/2017 CHELLE GOETZ MD, FACC FACP CCDS Ot Z88.2 ALLERGY STATUS TO [place] STATUS 10/15/2017 CHELLE GOETZ MD, FACC FACP CCDS Ot Z88.8 ALLERGY STATUS TO [facility] DRUG/MEDS/BIOL SUB 10/15/2017 CHELLE GOETZ MD, FACCP CCDS Ot Z91.19 PATIENT'S NONCOMPLIANCE W OT [...] CCDS Ot I25.10 ATHSCL HEART DISEASE OF [place] CORONARY 10/26/2017 BISHNU ROLDAN FACC, ALI FACP CCDS Ot I48.0 PAROXYSMAL ATRIAL FIBRILLATION 10/26/2017 BISHNU ROLDAN FACC, ALI FACP CCDS Ot I71.4 ABDOMINAL AORTIC ANEURYSM, WITHOUT RUPTU 10/29/2017 BISHNU ROLDAN FACC, ALI FACP CCDS Ot E78.4 OTHER HYPERLIPIDEMIA 10/29/2017 BISHNU ROLDAN FACC, ALI FACP CCDS Ot I10 ESSENTIAL (PRIMARY) HYPERTENSION 10/29/2017 BISHNU ROLDAN FACC, ALI FACP CCDS Ot I25.10 ATHSCL HEART DISEASE OF [place] CORONARY 10/29/2017 BISHNU HDEZC, ALI FACP CCDS Ot I48.0 PAROXYSMAL ATRIAL FIBRILLATION 10/29/[address] [facility], ALI FACP CCDS Ot I71.4 ABDOMINAL AORTIC ANEURYSM, WITHOUT RUPTU 10/29/2017 BISHNU HDEZ, ALI FACP CCDS Ot E78.5 HYPERLIPIDEMIA, UNSPECIFIED 10/29/2017 BISHNU HDEZC, ALI FACP CCDS Ot I10 ESSENTIAL (PRIMARY) HYPERTENSION 10/29/2017 [facility], ALI FACP CCDS Ot I25.10 ATHSCL HEART DISEASE OF [place] CORONARY 10/29/2017 [facility], ALI FACP CCDS Ot I48.0 PAROXYSMAL ATRIAL FIBRILLATION 10/29/2017 [facility], ALI FACP CCDS Ot I65.29 OCCLUSION AND STENOSIS OF UNSPECIFIED [place] 10/29/2017 BISHNU HDEZC, ALI FACP CCDS Ot R06.02 SHORTNESS OF BREATH 10/29/2017 BISHNU HDEZC, ALI FACP CCDS Ot E78.5 HYPERLIPIDEMIA, UNSPECIFIED 10/29/2017 BISHNU ROLDAN FACC, ALI FACP CCDS Ot I10 ESSENTIAL (PRIMARY) HYPERTENSION 10/29/2017 BISHNU ROLDAN FACC, ALI FACP CCDS Ot I25.10 ATHSCL HEART DISEASE OF [place] CORONARY 10/29/2017 BISHNU ROLDAN FACC, ALI [...] CCDS Ot I25.10 ATHSCL HEART DISEASE OF [place] CORONARY 11/05/2017 BISHNU ROLDAN FACC, ALI FACP CCDS Ot I48.0 PAROXYSMAL ATRIAL FIBRILLATION 11/05/2017 BISHNU ROLDAN FACC, ALI FACP CCDS Ot I71.4 ABDOMINAL AORTIC ANEURYSM, WITHOUT RUPTU 11/07/2017 BISHNU ROLDAN FACC, ALI FACP CCDS Ot E78.4 OTHER HYPERLIPIDEMIA 11/07/2017 BISHNU ROLDAN FACC, ALI FACP CCDS Ot I10 ESSENTIAL (PRIMARY) HYPERTENSION 11/07/2017 BISHNU HDEZC, ALI FACP CCDS Ot I25.10 ATHSCL HEART DISEASE OF [place] CORONARY 11/07/2017 BISHNU HDEZC, ALI FACP CCDS Ot I48.0 PAROXYSMAL ATRIAL FIBRILLATION 11/07/2017 BISHNU HDEZC, ALI FACP CCDS Ot I71.4 ABDOMINAL AORTIC ANEURYSM, WITHOUT RUPTU 11/08/2017 BISHNU HDEZC, ALI FACP CCDS Ot E78.5 HYPERLIPIDEMIA, UNSPECIFIED 11/08/2017 BISHNU HDEZC, ALI FACP CCDS Ot I10 ESSENTIAL (PRIMARY) HYPERTENSION 11/08/2017 BISHNU HDEZC, ALI FACP CCDS Ot I25.10 ATHSCL HEART DISEASE OF [place] CORONARY 11/08/2017 BISHNU ROLDAN FACC, ALI FACP CCDS Ot I48.0 PAROXYSMAL ATRIAL FIBRILLATION 11/08/2017 BISHNU HDEZC, ALI FACP CCDS Ot I65.29 OCCLUSION AND STENOSIS OF UNSPECIFIED CA 11/08/2017 BISHNU ROLDAN FACC, ALI FACP CCDS Ot R06.02 SHORTNESS OF BREATH 11/08/2017 BISHNU ROLDAN FACC, ALI FACP CCDS Ot E78.5 HYPERLIPIDEMIA, UNSPECIFIED 11/08/2017 BISNHU HDEZC, ALI FACP CCDS Ot I10 ESSENTIAL (PRIMARY) HYPERTENSION 11/08/2017 BISHNU ROLDAN FACC, ALI FACP CCDS Ot I25.10 ATHSCL HEART DISEASE OF [place] CORONARY 11/08/2017 BISHNU ROLDAN FACC, ALI FACP CCDS Ot I48.0 PAROXYSMAL ATRIAL FIBRILLATION 11/08/2017 BISHNU ROLDAN FACAndrea, ALI FACP CCDS Ot I65.29 OCCLUSION AND STENOSIS OF UNSPECIFIED CA 11/15/2017 BISHNU ROLDAN FACC, ALI FACP CCDS Ot E78.4 OTHER HYPERLIPIDEMIA 11/15/2017 BISHNU ROLDAN FACC, ALI FACP CCDS Ot I10 ESSENTIAL (PRIMARY) HYPERTENSION 11/15/2017 BISHNU ROLDAN FACC, ALI FACP CCDS Ot I25.10 ATHSCL HEART DISEASE OF [place] CORONARY 11/15/2017 BISHNU ROLDAN FACC, ALI FACP CCDS Ot I48.0 PAROXYSMAL ATRIAL FIBRILLATION 11/15/2017 BISHNU ROLDAN FACC, ALI FACP CCDS Ot I71.4 ABDOMINAL AORTIC ANEURYSM, WITHOUT RUPTU 11/19/2017 LUL NORWOOD MD Ot R32 UNSPECIFIED URINARY INCONTINENCE 11/19/2017 LUL NORWOOD MD Ot R33.9 RETENTION OF URINE, UNSPECIFIED 11/19/2017 LUL NORWOOD MD Ot Z01.8 18 ENCOUNTER FOR OTHER PREPROCEDURAL EXAMIN 11/20/2017 LUL NORWOOD MD Ot R32 UNSPECIFIED URINARY INCONTINENCE 11/20/2017 LUL NORWOOD MD Ot R33.9 RETENTION OF URINE, UNSPECIFIED 11/20/2017 LUL NORWOOD MD Ot Z01.8 18 ENCOUNTER FOR OTHER PREPROCEDURAL EXAMIN 11/25/2017 LUL NORWOOD MD Ot R32 UNSPECIFIED URINARY INCONTINENCE 11/25/2017 LUL NORWOOD MD Ot R33.9 RETENTION OF URINE, UNSPECIFIED 11/25/2017 LUL NORWOOD MD Ot Z01.8 18 ENCOUNTER FOR OTHER PREPROCEDURAL EXAMIN 11/25/2017 LUL NORWOOD MD Ot R32 UNSPECIFIED URINARY INCONTINENCE 11/25/2017 LUL NORWOOD MD Ot R33.9 RETENTION OF URINE, UNSPECIFIED 11/25/2017 LUL NORWOOD MD Ot Z01.8 18 ENCOUNTER FOR OTHER PREPROCEDURAL EXAMIN 11/25/2017 LUL NORWOOD MD Ot R32 UNSPECIFIED URINARY INCONTINENCE 11/25/2017 LUL NORWOOD MD Ot R33.9 RETENTION OF URINE, UNSPECIFIED 11/25/2017 LUL NORWOOD MD Ot Z01.8 18 ENCOUNTER FOR OTHER PREPROCEDURAL EXAMIN 11/25/2017 LUL NORWOOD MD Ot R32 UNSPECIFIED URINARY INCONTINENCE 11/25/2017 LUL NORWOOD MD Ot R33.9 RETENTION OF URINE, UNSPECIFIED 11/25/2017 LUL NORWOOD MD Ot Z01.8 18 ENCOUNTER FOR OTHER PREPROCEDURAL EXAMIN 11/25/2017 LUL NORWOOD MD Ot R32 UNSPECIFIED URINARY INCONTINENCE 11/25/2017 LUL NORWOOD MD Ot R33.9 RETENTION OF URINE, UNSPECIFIED 11/25/2017 LUL NORWOOD MD Ot Z01.8 18 ENCOUNTER FOR OTHER PREPROCEDURAL EXAMIN 11/26/2017 SATHISH ABAD IC DESIGNER 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 Ot 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 11/26/2017 SATHISH ABAD IC DESIGNER 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 Ot 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 11/26/2017 SATHISH ABAD IC DESIGNER 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 Ot I71.4 ABDOMINAL AORTIC ANEURYSM, WITHOUT RUPTU 11/26/2017 SATHISH ABAD IC DESIGNER 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 Ot K42.9 UMBILICAL HERNIA WITHOUT OBSTRUCTION OR 11/26/2017 SATHISH ABAD IC DESIGNER 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 Ot K76.89 OTHER SPECIFIED DISEASES OF LIVER 11/26/2017 SATHISH ABAD IC DESIGNER 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 Ot N28.1 CYST OF KIDNEY, ACQUIRED 11/26/2017 LUL NORWOOD MD Ot E11.9 TYPE 2 DIABETES MELLITUS WITHOUT COMPLIC 11/26/2017 LUL NORWOOD MD Ot E66.9 OBESITY, UNSPECIFIED 11/26/2017 LUL NORWOOD MD Ot E78.5 HYPERLIPIDEMIA, UNSPECIFIED 11/26/2017 LUL NORWOOD MD, Ot F32.9 MAJOR DEPRESSIVE DISORDER, SINGLE EPISOD 11/26/2017 LUL NORWOOD MD Ot G89.1 8 OTHER ACUTE POSTPROCEDURAL PAIN 11/26/2017 LUL NORWOOD MD Ot I10 ESSENTIAL (PRIMARY) HYPERTENSION 11/26/2017 LUL NORWOOD MD, Ot I25.1 0 ATHSCL HEART DISEASE OF [place] CORONARY 11/26/2017 LUL NORWOOD MD, Ot J44.9 CHRONIC OBSTRUCTIVE PULMONARY DISEASE, U 11/26/2017 LUL NORWOOD MD, Ot N31.9 NEUROMUSCULAR DYSFUNCTION OF [place], UN 11/26/2017 LUL NORWOOD MD, Ot N39.3 STRESS INCONTINENCE (FEMALE) (MALE) 11/26/2017 LUL NORWOOD MD, Ot R10.8 4 GENERALIZED ABDOMINAL PAIN 11/26/2017 LUL NORWOOD MD, Ot R33.9 RETENTION OF URINE, UNSPECIFIED 11/26/2017 LUL NORWOOD MD, Ot Z68.3 1 BODY MASS INDEX (BMI) 31.0-31.9, ADULT 11/26/2017 LUL NORWOOD MD, Ot Z79.0 1 DETENTION (CURRENT) USE OF ANTICOAGULANT 11/26/2017 LUL NORWOOD MD, Ot Z79.8 2 CORPORATE DRIVER (CURRENT) USE OF ASPIRIN 11/26/2017 LUL NORWOOD MD, Ot Z79.8 99 OTHER DETENTION (CURRENT) DRUG THERAPY 11/26/2017 LUL NORWOOD MD, Ot Z87.8 91 PERSONAL HISTORY OF NICOTINE DEPENDENCE 11/27/2017 PRUDENCE SHAW MD, Ot E03 .9 HYPOTHYROIDISM, UNSPECIFIED 11/27/2017 PRUDENCE SHAW MD Ot E11 .9 TYPE 2 DIABETES MELLITUS WITHOUT COMPLIC 11/27/2017 PRUDENCE SHAW MD, Ot E78.00 PURE HYPERCHOLESTEROLEMIA, UNSPECIFIED 11/27/2017 PRUDENCE SHAW MD, Ot E86 .0 DEHYDRATION 11/27/2017 PRUDENCE SHAW MD, Ot F32 .9 MAJOR DEPRESSIVE DISORDER, SINGLE EPISOD 11/27/2017 PRUDENCE SHAW MD, Ot F41 .9 ANXIETY DISORDER, UNSPECIFIED 11/27/2017 PRUDENCE SHAW MD Ot G89.18 OTHER ACUTE POSTPROCEDURAL PAIN 11/27/2017 PRUDENCE SHAW MD, Ot I10 ESSENTIAL (PRIMARY) HYPERTENSION 11/27/2017 PRUDENCE SHAW MD, Ot 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 11/27/2017 PRUDENCE SHAW MD, Ot I25.10 ATHSCL HEART DISEASE OF [place] CORONARY 11/27/2017 PRUDENCE SHAW MD, Ot I48 .0 PAROXYSMAL ATRIAL FIBRILLATION 11/27/2017 PRUDENCE SHAW MD, Ot I50.32 CHRONIC DIASTOLIC (CONGESTIVE) HEART KATHRYN 11/27/2017 PRUDENCE SHAW MD, Ot 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 11/27/2017 PRUDENCE SHAW MD, Ot I73 .9 PERIPHERAL VASCULAR DISEASE, UNSPECIFIED 11/27/2017 PRUDENCE SHAW MD, Ot J44 .9 CHRONIC OBSTRUCTIVE PULMONARY DISEASE, U 11/27/2017 PRUDENCE SHAW MD, Ot J45.909 UNSPECIFIED ASTHMA, UNCOMPLICATED 11/27/2017 PRUDENCE SHAW MD, Ot K59.09 OTHER CONSTIPATION 11/27/2017 PRUDENCE SHAW MD, Ot N31 .9 NEUROMUSCULAR DYSFUNCTION OF [place], UN 11/27/2017 PRUDENCE SHAW MD, Ot N39 .0 URINARY TRACT INFECTION, SITE NOT SPECIF 11/27/2017 PRUDENCE SHAW MD, Ot N39 .3 STRESS INCONTINENCE (FEMALE) (MALE) 11/27/2017 PRUDENCE SHAW MD Ot R10.84 GENERALIZED ABDOMINAL PAIN 11/27/2017 PRUDENCE SHAW MD, Ot R33 .9 RETENTION OF URINE, UNSPECIFIED 11/27/2017 PRUDENCE SHAW MD, Ot T83.510A I/I REACT D/T CYSTOSTOMY CATHETER, INITI 11/27/2017 PRUDENCE SHAW MD, Ot Z79.01 DETENTION (CURRENT) USE OF ANTICOAGULANT 11/27/2017 PRUDENCE SHAW MD, Ot Z79.82 CORPORATE DRIVER (CURRENT) USE OF ASPIRIN 11/27/2017 PRUDENCE SHAW MD, Ot Z79.84 CORPORATE DRIVER (CURRENT) USE OF ORAL HYPOGLYC 11/27/2017 PRUDENCE SHAW MD, Ot Z79.899 OTHER DETENTION (CURRENT) DRUG THERAPY 11/27/2017 PRUDENCE SHAW MD, Ot Z87.891 PERSONAL HISTORY OF NICOTINE DEPENDENCE 11/27/2017 PRUDENCE SHAW MD, Ot 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 11/27/2017 PRUDENCE HSAW MD, Ot Z96.641 PRESENCE OF RIGHT ARTIFICIAL HIP JOINT 12/03/2017 BAIMA, SATHISH L IC DESIGNER 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 Ot 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 12/03/2017 BAIMASATHISH IC DESIGNER 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 Ot 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 12/03/2017 BAIMASATHISH L IC DESIGNER 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 Ot I71.4 ABDOMINAL AORTIC ANEURYSM, WITHOUT RUPTU 12/03/2017 BAIMASATHISH L IC DESIGNER 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 Ot I77.2 RUPTURE OF ARTERY 12/03/2017 BAIMASATHISH L IC DESIGNER 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 Ot J43.9 EMPHYSEMA, UNSPECIFIED 12/03/2017 BAIMA SATHISH L IC DESIGNER 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 Ot 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 12/08/2017 BAIMASATHISH L IC DESIGNER 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 Ot 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 12/08/2017 BAIMASATHISH L IC DESIGNER 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 Ot 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 9 TYPE 2 DIABETES MELLITUS WITHOUT COMPLIC 2017 JESSICA JENKINS MD Ot E78. 00 PURE HYPERCHOLESTEROLEMIA, UNSPECIFIED 2017 JESSICA JENKINS MD Ot F32. 9 MAJOR DEPRESSIVE DISORDER, SINGLE EPISOD 2017 JESSICA JENKINS MD Ot F41. 9 ANXIETY DISORDER, UNSPECIFIED 2017 JESSICA JENKINS MD Ot I10 ESSENTIAL (PRIMARY) HYPERTENSION 2017 JESSICA JENKINS MD Ot I25. 10 ATHSCL HEART DISEASE OF [place] CORONARY 2017 JESSICA JENKINS MD Ot J44. 9 CHRONIC OBSTRUCTIVE PULMONARY DISEASE, U 2017 JESSICA JENKINS MD Ot N39. 0 URINARY TRACT INFECTION, SITE NOT SPECIF 2017 JESSICA JENKINS MD Ot R55 SYNCOPE AND COLLAPSE 2017 JESSICA JENKINS MD Ot T83.511A I/I REACT D/T INDWELLING URETHRAL CATHET 2017 JESSICA JENKINS MD Ot W01.0XXA FALL SAME LEV FROM SLIP/TRIP W/O STRIKE 2017 JESSICA JENKINS MD Ot Z79. 01 CORPORATE DRIVER (CURRENT) USE OF ANTICOAGULANT 2017 JESSICA JENKINS MD Ot Z79. 02 DETENTION (CURRENT) USE OF ANTITHROMBOTI 2017 JESSICA JENKINS MD Ot Z79. 82 CORPORATE DRIVER (CURRENT) USE OF ASPIRIN 2017 JESSICA JENKINS MD Ot Z79. 84 DETENTION (CURRENT) USE OF ORAL HYPOGLYC 2017 JESSICA JENKINS MD Ot Z80. 0 FAMILY HISTORY OF MALIGNANT NEOPLASM OF 2017 JESSICA JENKINS MD Ot Z80. 1 FAMILY HISTORY OF MALIG NEOPLASM OF [place] 2017 JESSICA JENKINS MD Ot Z82. 49 FAMILY HX OF ISCHE[place] HEART DIS AND OTH DI 2017 JESSICA JENKINS MD Ot Z87. 01 PERSONAL HISTORY OF PNEUMONIA (RECURRENT 2017 JESSICA JENKINS MD Ot Z87. 19 PERSONAL HISTORY OF OTHER DISEASES OF TH 2017 JESSICA JENKINS MD, Ot Z87.891 PERSONAL HISTORY OF NICOTINE DEPENDENCE 2017 JESSICA JENKINS MD Ot Z90.710 ACQUIRED ABSENCE OF BOTH CERVIX AND UTER 2017 JESSICA JENKINS MD Ot Z90. 89 ACQUIRED ABSENCE OF OTHER ORGANS 2017 JESSICA JENKINS MD Ot Z95. 1 PRESENCE OF AORTOCORONARY BYPASS GRAFT 2017 JESSICA JENKINS MD Ot Z96. 0 PRESENCE OF UROGENITAL IMPLANTS 12/17/2017 JESSICA JENKINS MD Ot E11. 9 TYPE 2 DIABETES MELLITUS WITHOUT COMPLIC 12/17/2017 JESSICA JENKINS MD Ot E78. 00 PURE HYPERCHOLESTEROLEMIA, UNSPECIFIED 12/17/2017 JESSICA JENKINS MD Ot F32. 9 MAJOR DEPRESSIVE DISORDER, SINGLE EPISOD 12/17/2017 JESSICA JENKINS MD Ot F41. 9 ANXIETY DISORDER, UNSPECIFIED 12/17/2017 JESSICA JENKINS MD Ot I10 ESSENTIAL (PRIMARY) HYPERTENSION 12/17/2017 JESSICA JENKINS MD Ot I25. 10 ATHSCL HEART DISEASE OF [place] CORONARY 12/17/2017 JESSICA JENKINS MD, Ot J44. 9 CHRONIC OBSTRUCTIVE PULMONARY DISEASE, U 12/17/2017 JESSICA JENKINS MD Ot N39. 0 URINARY TRACT INFECTION, SITE NOT SPECIF 12/17/2017 JESSICA JENKINS MD Ot R55 SYNCOPE AND COLLAPSE 12/17/2017 JESSICA JEKNINS MD Ot T83.511A I/I REACT D/T INDWELLING URETHRAL CATHET 12/17/2017 JESSICA JENKINS MD Ot W01.0XXA FALL SAME LEV FROM SLIP/TRIP W/O STRIKE 12/17/2017 JESSICA JENKINS MD Ot Z79. 01 DETENTION (CURRENT) USE OF ANTICOAGULANT 12/17/2017 JESSICA JENKINS MD Ot Z79. 02 CORPORATE DRIVER (CURRENT) USE OF ANTITHROMBOTI 12/17/2017 EJSSICA JENKINS MD Ot Z79. 82 CORPORATE DRIVER (CURRENT) USE OF ASPIRIN 12/17/2017 JESSICA JENKINS MD Ot Z79. 84 CORPORATE DRIVER (CURRENT) USE OF ORAL HYPOGLYC 12/17/2017 JESSICA JENKINS MD, Ot Z80. 0 FAMILY HISTORY OF MALIGNANT NEOPLASM OF 12/17/2017 JESSICA JENKINS MD Ot Z80. 1 FAMILY HISTORY OF MALIG NEOPLASM OF [place] 12/17/2017 JESSICA JENKINS MD Ot Z82. 49 FAMILY HX OF ISCHEM HEART DIS AND OTH DI 12/17/2017 JESSICA JENKINS MD Ot Z87. 01 PERSONAL HISTORY OF PNEUMONIA (RECURRENT 12/17/2017 JESSICA JENKINS MD Ot Z87. 19 PERSONAL HISTORY OF OTHER DISEASES OF TH 12/17/2017 JESSICA JENKINS MD Ot Z87.891 PERSONAL HISTORY OF NICOTINE DEPENDENCE 12/17/2017 JESSICA JENKINS MD Ot Z90.710 ACQUIRED ABSENCE OF BOTH CERVIX AND UTER 12/17/2017 JESSICA JENKINS MD Ot Z90. 89 ACQUIRED ABSENCE OF OTHER ORGANS 12/17/2017 JESSICA JENKINS MD Ot Z95. 1 PRESENCE OF AORTOCORONARY BYPASS GRAFT 12/17/2017 JESSICA JENKINS MD Ot Z96. 0 PRESENCE OF UROGENITAL IMPLANTS 12/23/2017 SATHISH ABAD IC DESIGNER 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 Ot 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 12/23/2017 KEVONSATHISH HOUSE L IC DESIGNER 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 Ot I70.201 UNSP ATHSCL [place] ARTERIES OF [facility] 12/23/2017 SATHISH ABAD L IC DESIGNER 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 Ot I71.4 ABDOMINAL AORTIC ANEURYSM, WITHOUT RUPTU 12/23/2017 KEVONSATHISH HOUSE L IC DESIGNER 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 Ot K42.9 UMBILICAL HERNIA WITHOUT OBSTRUCTION OR 12/23/2017 KEVONSATHISH HOUSE L IC DESIGNER 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 Ot K76.89 OTHER SPECIFIED DISEASES OF [place] 12/23/2017 KEVONSATHISH HOUSE L IC DESIGNER 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 Ot N28.1 CYST OF KIDNEY, ACQUIRED 12/24/2017 MARCIA LUI MD F Ot I65.2 3 OCCLUSION AND STENOSIS OF [place] 12/24/2017 MARCIA LUI MD F Ot Z01.8 10 ENCOUNTER FOR PREPROCEDURAL CARDIOVASCUL 12/24/2017 MARCIA LUI MD F Ot Z01.8 11 ENCOUNTER FOR PREPROCEDURAL RESPIRATORY 12/24/2017 MARCIA LUI MD F Ot Z01.8 12 ENCOUNTER FOR PREPROCEDURAL LABORATORY E 12/24/2017 KEVONSATHISH HOUSE L IC DESIGNER 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 Ot 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 12/24/2017 KEVONLACY SATHISH L IC DESIGNER 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 Ot 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[place] ARTERIES OF [facility] 12/24/2017 KEVONSATHISH HOUSE L IC DESIGNER 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 Ot I71.4 ABDOMINAL AORTIC ANEURYSM, WITHOUT RUPTU 12/24/2017 KEVONSATHISH HOUSE IC DESIGNER 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 Ot I77.2 RUPTURE OF ARTERY 12/24/2017 KEVONLACY SATHISH L IC DESIGNER 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 Ot J43.9 EMPHYSEMA, UNSPECIFIED 12/24/2017 KEVONSATHISH HOUSE L IC DESIGNER 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 Ot 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 01/07/2018 KEVONSATHISH HOUSE L IC DESIGNER 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 Ot 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 01/07/2018 KEVONSATHISH HOUSE L IC DESIGNER 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 Ot I70.201 UNSP ATHSCL [place] ARTERIES OF [facility] 01/07/2018 KEVONSATHISH HOUSE L IC DESIGNER 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 Ot I71.4 ABDOMINAL AORTIC ANEURYSM, WITHOUT RUPTU 01/07/2018 KEVONSATHISH HOUSE L IC DESIGNER 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 Ot K42.9 UMBILICAL HERNIA WITHOUT OBSTRUCTION OR 01/07/2018 SATHISH ABAD IC DESIGNER 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 Ot K76.89 OTHER SPECIFIED DISEASES OF LIVER 01/07/2018 SATHISH ABAD IC DESIGNER 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 Ot N28.1 CYST OF KIDNEY, ACQUIRED 01/08/2018 SATHISH ABAD IC DESIGNER 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 Ot 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 01/08/2018 SATHISH ABAD IC DESIGNER 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 Ot 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 01/08/2018 SATHISH ABAD IC DESIGNER 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 Ot I71.4 ABDOMINAL AORTIC ANEURYSM, WITHOUT RUPTU 01/08/2018 SATHISH ABAD IC DESIGNER 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 Ot I77.2 RUPTURE OF ARTERY 01/08/2018 SATHISH ABAD IC DESIGNER 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 Ot J43.9 EMPHYSEMA, UNSPECIFIED 01/08/2018 SATHISH ABAD IC DESIGNER 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 Ot 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 01/16/2018 MARCIA LUI MD F Ot I65.2 3 OCCLUSION AND STENOSIS OF [place] 01/16/2018 MARCIA LUI MD F Ot Z01.8 10 ENCOUNTER FOR PREPROCEDURAL CARDIOVASCUL 01/16/2018 MARCIA LUI MD F Ot Z01.8 11 ENCOUNTER FOR PREPROCEDURAL RESPIRATORY 01/16/2018 MARCIA LUI MD F Ot Z01.8 12 ENCOUNTER FOR PREPROCEDURAL LABORATORY E 01/24/2018 MARCIA LUI MD F Ot I65.2 3 OCCLUSION AND STENOSIS OF [place] 01/24/2018 MARCIA LUI MD F Ot Z01.8 10 ENCOUNTER FOR PREPROCEDURAL CARDIOVASCUL 01/24/2018 MARCIA LUI MD F Ot Z01.8 11 ENCOUNTER FOR PREPROCEDURAL RESPIRATORY 01/24/2018 MARCIA LUI MD F Ot Z01.8 12 ENCOUNTER FOR PREPROCEDURAL LABORATORY E 01/28/2018 BISHNU ROLDAN FACC, CHELLE FACP CCDS Ot E78.4 OTHER HYPERLIPIDEMIA 01/28/2018 BISHNU ROLDAN FACC, ALI FACP CCDS Ot I11.0 HYPERTENSIVE HEART DISEASE WITH HEART FA 01/28/2018 BISHNU ROLDAN FACC, ALI FACP CCDS Ot I25.10 ATHSCL HEART DISEASE OF [place] CORONARY 01/28/2018 BISHNU ROLDAN FACC, ALI FACP CCDS Ot I48.0 PAROXYSMAL ATRIAL FIBRILLATION 01/28/2018 BISHNU ROLDAN FACC, CHELLE FACP CCDS Ot I48.92 UNSPECIFIED ATRIAL FLUTTER 01/28/2018 BISHNU ROLDAN FACC, ALI FACP CCDS Ot I50.33 ACUTE ON CHRONIC DIASTOLIC (CONGESTIVE) 01/28/2018 BISHNU ROLDAN FACC, ALI FACP CCDS Ot 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 01/28/2018 BISHNU ROLDAN FACC, ALI FACP CCDS Ot I70.1 ATHEROSCLEROSIS OF RENAL ARTERY 01/28/2018 BISHNU ROLDAN FACC, ALI FACP CCDS Ot I71.4 ABDOMINAL AORTIC ANEURYSM, WITHOUT RUPTU 01/28/2018 BISHNU ROLDAN FACC, ALI FACP CCDS Ot I73.9 PERIPHERAL VASCULAR DISEASE, UNSPECIFIED 01/28/2018 BISHNU ROLDAN FACC, CHELLE FACP CCDS Ot J44.9 CHRONIC OBSTRUCTIVE PULMONARY DISEASE, U 01/28/2018 BISHNU ROLDAN FACC ALI FACP CCDS Ot Z79.899 OTHER CORPORATE DRIVER (CURRENT) DRUG THERAPY 01/28/2018 CHELLE GOETZ MD, FACC FACP CCDS Ot Z87.891 PERSONAL HISTORY OF NICOTINE DEPENDENCE 01/28/2018 BISHNU ROLDAN FACC ALI FACP CCDS Ot Z88.1 ALLERGY STATUS TO OTHER ANTIBIOTIC AGENT 01/28/2018 BISHNU ROLDAN FACC, CHELLE FACP CCDS Ot Z88.2 ALLERGY STATUS TO SULFONAMIDES STATUS 01/28/2018 BISHNU ROLDAN FACC, ALI FACP CCDS Ot Z88.8 ALLERGY STATUS TO [facility]S/BIOL SUB 01/28/2018 CHELLE GOETZ MD, FACC FACP CCDS Ot Z91.19 PATIENT'S NONCOMPLIANCE W OT MEDICAL TR 01/28/2018 BISHNU ROLDAN FACC ALI FACP CCDS Ot 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 BYPASS GRAFT 01/28/2018 BISHNU ROLDAN FACC, ALI FACP CCDS Ot Z96.641 PRESENCE OF RIGHT ARTIFICIAL HIP JOINT 02/12/2018 MARCIA LUI MD Ot I65.2 3 OCCLUSION AND STENOSIS OF [place] 02/12/2018 MARCIA LUI MD Ot Z01.8 10 ENCOUNTER FOR PREPROCEDURAL CARDIOVASCUL 02/12/2018 MARCIA LUI MD Ot Z01.8 11 ENCOUNTER FOR PREPROCEDURAL RESPIRATORY 02/17/2018 SHANIQUE VEGA MD Ot R82.90 UNSPECIFIED ABNORMAL FINDINGS IN URINE 03/07/2018 MARCIA LUI MD Ot I65.2 3 OCCLUSION AND STENOSIS OF [place] 03/07/2018 MARCIA LUI MD Ot Z01.8 10 ENCOUNTER FOR PREPROCEDURAL CARDIOVASCUL 03/07/2018 MARCIA LUI MD Ot Z01.8 11 ENCOUNTER FOR PREPROCEDURAL RESPIRATORY 03/11/2018 BISHNU ROLDAN FACC, CHELLE FACP CCDS Ot E78.5 HYPERLIPIDEMIA, UNSPECIFIED 03/11/2018 BISHNU ROLDAN FACC, ALI FACP CCDS Ot I25.10 ATHSCL HEART DISEASE OF [place] CORONARY 03/11/2018 BISHNU ROLDAN FACC, ALI [...] IN URINE 03/21/2018 MARCIA LUI MD Ot I65.2 3 OCCLUSION AND STENOSIS OF [place] 03/21/2018 MARCIA LUI MD F Ot Z01.8 10 ENCOUNTER FOR PREPROCEDURAL CARDIOVASCUL 03/21/2018 MARCIA LUI MD F Ot Z01.8 11 ENCOUNTER FOR PREPROCEDURAL RESPIRATORY 03/25/2018 BISHNU ROLDAN FACC, CHELLE FACP CCDS Ot E78.5 HYPERLIPIDEMIA, UNSPECIFIED 03/25/2018 BISHNU ROLDAN FACC, ALI FACP CCDS Ot I25.10 ATHSCL HEART DISEASE OF [place] CORONARY 03/25/2018 BISHNU ROLDAN FACC, ALI FACP CCDS Ot I48.0 PAROXYSMAL ATRIAL FIBRILLATION 03/25/2018 BISHNU ROLDAN FACC, ALI FACP CCDS Ot I71.4 ABDOMINAL AORTIC ANEURYSM, WITHOUT RUPTU 03/25/2018 BISHNU ROLDAN FACC, ALI FACP CCDS Ot R06.02 SHORTNESS OF BREATH 03/25/2018 CHELLE GOETZ MD, FACC FACP CCDS Ot R53.1 WEAKNESS 04/01/2018 BISHNU ROLDAN FACC, CHELLE FACP CCDS Ot E78.00 PURE HYPERCHOLESTEROLEMIA, UNSPECIFIED 04/01/2018 BISHNU ROLDAN FACC, ALI FACP CCDS Ot I10 ESSENTIAL (PRIMARY) HYPERTENSION 04/01/2018 BISHNU ROLDAN FACC, ALI FACP CCDS Ot I25.10 ATHSCL HEART DISEASE OF [place] CORONARY 04/01/2018 BISHNU ROLDAN FACC, CHELLE FACP CCDS Ot I48.0 PAROXYSMAL ATRIAL FIBRILLATION 04/01/2018 BISHNU ROLDAN FACC, CHELLE FACP CCDS Ot I70.1 ATHEROSCLEROSIS OF RENAL ARTERY 04/01/2018 BISHNU ROLDAN FACC, CHELLE FACP CCDS Ot I70.203 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 04/01/2018 CHELLE GOETZ MD, FACC FACP CCDS Ot I71.4 ABDOMINAL AORTIC ANEURYSM, WITHOUT RUPTU 04/01/2018 CHELLE GOETZ MD, FACC FACP CCDS Ot 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 04/01/2018 CHELLE GOETZ MD, FACC FACP CCDS Ot J44.9 CHRONIC OBSTRUCTIVE PULMONARY DISEASE, U 04/01/2018 CHELLE GOETZ MD, FACC FACP CCDS Ot Z79.01 CORPORATE DRIVER (CURRENT) USE OF ANTICOAGULANT 04/01/2018 CHELLE GOETZ MD, FACC FACP CCDS Ot Z79.02 DETENTION (CURRENT) USE OF ANTITHROMBOTI 04/01/2018 CHELLE GOETZ MD, FACC FACP CCDS Ot Z79.82 DETENTION (CURRENT) USE OF ASPIRIN 04/01/2018 CHELLE GOETZ MD, FACC FACP CCDS Ot Z79.899 OTHER DETENTION (CURRENT) DRUG THERAPY 04/01/2018 BISHNU ROLDAN FACC ALI FACP CCDS Ot Z87.891 PERSONAL HISTORY OF NICOTINE DEPENDENCE 04/01/2018 HCELLE GOETZ MD, FACC FACP CCDS Ot 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 BYPASS GRAFT 04/02/2018 MARCIA LUI MD Ot I65.2 3 OCCLUSION AND STENOSIS OF [place] 04/02/2018 MARCIA LUI MD Ot Z01.8 10 ENCOUNTER FOR PREPROCEDURAL CARDIOVASCUL 04/02/2018 RABBI MD, MARCIA F Ot Z01.8 11 ENCOUNTER FOR PREPROCEDURAL RESPIRATORY 04/09/2018 MARCIA LUI MD Ot I65.2 3 OCCLUSION AND STENOSIS OF [place] 04/09/2018 MARCIA LUI MD F Ot Z01.8 10 ENCOUNTER FOR PREPROCEDURAL CARDIOVASCUL 04/09/2018 MARCIA LUI MD Ot Z01.8 11 ENCOUNTER FOR PREPROCEDURAL RESPIRATORY 04/11/2018 RAFIQ CAMPOVERDE IC DESIGNER 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 Ot 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 04/11/2018 RAFIQ CAMPOVERDE IC DESIGNER 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 Ot I70.8 ATHEROSCLEROSIS OF OTHER ARTERIES 04/11/2018 RAFIQ CAMPOVERDE IC DESIGNER 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 Ot I71.4 ABDOMINAL AORTIC ANEURYSM, WITHOUT RUPTU 04/11/2018 CAMPOVERDERAFIQ IC DESIGNER 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 Ot 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 04/11/2018 RAFIQ CAMPOVERDE IC DESIGNER 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 Ot K43.9 VENTRAL HERNIA WITHOUT OBSTRUCTION OR GA 04/11/2018 RAFIQ CAMPOVERDE IC DESIGNER 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 Ot N28.89 OTHER SPECIFIED DISORDERS OF KIDNEY AND 04/30/2018 RAFIQ CAMPOVERDE IC DESIGNER 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 Ot 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 04/30/2018 CAMPOVERDERAFIQ IC DESIGNER 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 Ot I70.8 ATHEROSCLEROSIS OF OTHER ARTERIES 04/30/2018 CAMPOVERDERAFIQ IC DESIGNER 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 Ot I71.4 ABDOMINAL AORTIC ANEURYSM, WITHOUT RUPTU 04/30/2018 CAMPOVERDERAFIQ JOSEPH IC DESIGNER 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 Ot 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 04/30/2018 RAFIQ CAMPOVERDE IC DESIGNER 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 Ot K43.9 VENTRAL HERNIA WITHOUT OBSTRUCTION OR GA 04/30/2018 CAMPOVERDERAFIQ JOSEPH IC DESIGNER 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 Ot N28.89 OTHER SPECIFIED DISORDERS OF KIDNEY AND 05/05/2018 JUAREZ DAWSON MD Ot E11.9 TYPE 2 DIABETES MELLITUS WITHOUT COMPLIC 05/05/2018 JAUREZ DAWSON MD Ot E78.00 PURE HYPERCHOLESTEROLEMIA, UNSPECIFIED 05/05/2018 JUAREZ DAWSON MD Ot F32.9 MAJOR DEPRESSIVE DISORDER, SINGLE EPISOD 05/05/2018 JUAREZ DAWSON MD Ot F41.9 ANXIETY DISORDER, UNSPECIFIED 05/05/2018 JUAREZ DAWSON MD Ot I10 ESSENTIAL (PRIMARY) HYPERTENSION 05/05/2018 JUAREZ DAWSON MD, Ot I25.10 ATHSCL HEART DISEASE OF [place] CORONARY 05/05/2018 JUAREZ DAWSON MD, Ot I71.4 ABDOMINAL AORTIC ANEURYSM, WITHOUT RUPTU 05/05/2018 JUAREZ DAWSON MD, Ot M54.5 LOW BACK PAIN 05/05/2018 JUAREZ DAWSON MD, Ot N39.0 URINARY TRACT INFECTION, SITE NOT SPECIF 05/05/2018 JUAREZ DAWSON MD, Ot S32.030A WEDGE COMPRESSION FRACTURE OF THIRD LUMB 05/05/2018 JUAREZ DAWSON MD, Ot X50.0XXA OVEREXERTION FROM STRENUOUS MOVEMENT OR 05/05/2018 JUAREZ DAWSON MD, Ot Z79.82 DETENTION (CURRENT) USE OF ASPIRIN 05/05/2018 JUAREZ DAWSON MD, Ot Z79.84 DETENTION (CURRENT) USE OF ORAL HYPOGLYC 05/05/2018 JUAREZ [...] OTHER SPECIFIED POSTPROCEDURAL STATES 05/07/2018 JUAREZ DAWSON MD, Ot E11.9 TYPE 2 DIABETES MELLITUS WITHOUT COMPLIC 05/07/2018 JUAREZ DAWSON MD Ot E78.00 PURE HYPERCHOLESTEROLEMIA, UNSPECIFIED 05/07/2018 JUAREZ DAWSON MD, Ot F32.9 MAJOR DEPRESSIVE DISORDER, SINGLE EPISOD 05/07/2018 JUAREZ DAWSON MD, Ot F41.9 ANXIETY DISORDER, UNSPECIFIED 05/07/2018 JUAREZ DAWSON MD, Ot I10 ESSENTIAL (PRIMARY) HYPERTENSION 05/07/2018 JUAREZ DAWSON MD Ot I25.10 ATHSCL HEART DISEASE OF [place] CORONARY 05/07/2018 JUAREZ DAWSON MD, Ot I71.4 ABDOMINAL AORTIC ANEURYSM, WITHOUT RUPTU 05/07/2018 JUAREZ DAWSON MD, Ot M54.5 LOW BACK PAIN 05/07/2018 JUAREZ DAWSON MD, Ot N39.0 URINARY TRACT INFECTION, SITE NOT SPECIF 05/07/2018 JUAREZ DAWSON MD, Ot S32.030A WEDGE COMPRESSION FRACTURE OF THIRD LUMB 05/07/2018 JUAREZ DAWSON MD Ot X50.0XXA OVEREXERTION FROM STRENUOUS MOVEMENT OR 05/07/2018 JUAREZ DAWSON MD, Ot Z79.82 CORPORATE DRIVER (CURRENT) USE OF ASPIRIN 05/07/2018 JUAREZ DAWSON MD, Ot Z79.84 CORPORATE DRIVER (CURRENT) USE OF ORAL HYPOGLYC 05/07/2018 JUAREZ DAWSON MD, Ot Z87.891 PERSONAL HISTORY OF NICOTINE DEPENDENCE 05/07/2018 JUAREZ DAWSON MD, Ot Z88.2 ALLERGY STATUS TO SULFONAMIDES STATUS 05/07/2018 JUAREZ DAWSON MD Ot Z88.6 ALLERGY STATUS TO ANALGESIC AGENT [...] OTHER SPECIFIED POSTPROCEDURAL STATES 05/12/2018 RAFIQ CAMPOVERDE IC DESIGNER 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 Ot 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 05/12/2018 RAFIQ CAMPOVERDE IC DESIGNER 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 Ot I70.8 ATHEROSCLEROSIS OF OTHER ARTERIES 05/12/2018 RAFIQ CAMPOVERDE IC DESIGNER 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 Ot I71.4 ABDOMINAL AORTIC ANEURYSM, WITHOUT RUPTU 05/12/2018 RAFIQ CAMPOVERDE IC DESIGNER 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 Ot 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 05/12/2018 RAFIQ CAMPOVERDE IC DESIGNER 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 Ot K43.9 VENTRAL HERNIA WITHOUT OBSTRUCTION OR GA 05/12/2018 RAFIQ CAMPOVERDE IC DESIGNER 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 Ot N28.89 OTHER SPECIFIED DISORDERS OF KIDNEY AND 05/29/2018 CAROLINE MENDOZA MD Ot 338.29 OTHER CHRONIC PAIN 05/29/2018 CAROLINE MENDOZA MD Ot 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 05/29/2018 CAROLINE MENDOZA MD Ot 724.2 LUMBAGO 05/29/2018 CAROLINE MENDOZA MD Ot 724.4 LUMBOSACRAL NEURITIS NOS 05/29/2018 MAX DHILLON IC DESIGNER 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 Ot 401.1 BENIGN HYPERTENSION 05/29/2018 MAX DHILLON Ot 424.1 AORTIC VALVE DISORDER 05/29/2018 MAX DHILLON Ot 785.2 CARDIAC MURMURS NEC 05/29/2018 MAX DHILLON Ot 786.05 SHORTNESS OF BREATH 05/29/2018 ANDRE HERNANDEZ DO Ot 715.91 OSTEOARTHROS NOS-SHLDER 05/29/2018 ANDRE HERNANDEZ DO Ot 727.61 ROTATOR CUFF RUPTURE 05/29/2018 DIANNA MACHADO MD Ot 278. 00 OBESITY, NOS 05/29/2018 DIANNA MACHADO MD Ot 721. 3 LUMBOSACRAL SPONDYLOSIS 05/29/2018 DIANNA MACHADO MD Ot 724. 6 DISORDERS OF SACRUM 05/29/2018 DIANNA MACHADO MD Ot 729. 1 MYALGIA AND MYOSITIS NOS 05/29/2018 DIANNA MACHADO MD Ot V58. 69 OTH MED,LT,CURRENT USE 05/29/2018 DIANNA MACHADO MD Ot V85. 35 BODY MASS INDEX 35.0-35.9, ADULT 05/29/2018 DIANNA MACHADO MD Ot 278. 00 OBESITY, NOS 05/29/2018 DIANNA MACHADO MD Ot 715. 95 OSTEOARTHROS NOS-PELVIS 05/29/2018 DIANNA MACHADO MD Ot 721. 3 LUMBOSACRAL SPONDYLOSIS 05/29/2018 DIANNA MACHADO MD Ot 729. 1 MYALGIA AND MYOSITIS NOS 05/29/2018 DIANNA MACHADO MD Ot V58. 69 OTH MED,LT,CURRENT USE 05/29/2018 DIANNA MACHADO MD Ot V85. 33 BODY MASS INDEX 33.0-33.9, ADULT 05/29/2018 GARY ROLDAN, SHANIQUE Funk Ot 791 .9 ABN URINE FINDINGS NEC 05/29/2018 BISHNU ROLDAN FACC, CHELLE FACP CCDS Ot E78.5 HYPERLIPIDEMIA, UNSPECIFIED 05/29/2018 BISHNU ROLDAN FACC, ALI FACP CCDS Ot I10 ESSENTIAL (PRIMARY) HYPERTENSION 05/29/2018 BISHNU ROLDAN FACC, ALI FACP CCDS Ot I25.10 ATHSCL HEART DISEASE OF [place] CORONARY 05/29/2018 BISHNU ROLDAN FACC, ALI FACP [...] CCDS Ot I25.10 ATHSCL HEART DISEASE OF [place] CORONARY 05/29/2018 BISHNU ROLDAN FACC, ALI FACP [...] CCDS Ot I25.10 ATHSCL HEART DISEASE OF [place] CORONARY 05/29/2018 BISHNU ROLDAN FAC, ALI FACP CCDS Ot I48.0 PAROXYSMAL ATRIAL FIBRILLATION 05/29/2018 BISHNU ROLDAN FAC, ALI FACP CCDS Ot I71.4 ABDOMINAL AORTIC ANEURYSM, WITHOUT RUPTU 05/29/2018 LUL NORWOOD MD Ot R32 UNSPECIFIED URINARY INCONTINENCE 05/29/2018 LUL NORWOOD MD Ot R33.9 RETENTION OF URINE, UNSPECIFIED 05/29/2018 LUL NORWOOD MD Ot Z01.8 18 ENCOUNTER FOR OTHER PREPROCEDURAL EXAMIN 05/29/2018 BAIMA, SATHISH L IC DESIGNER 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 Ot 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 05/29/2018 BAIMA, SATHISH L IC DESIGNER 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 Ot I70.201 UNSP ATHSCL [place] [facility] 05/29/2018 JENNIFFER SATHISH L IC DESIGNER 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 Ot I71.4 ABDOMINAL AORTIC ANEURYSM, WITHOUT RUPTU 05/29/2018 BAIMA SATHISH L IC DESIGNER 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 Ot K42.9 UMBILICAL HERNIA WITHOUT OBSTRUCTION OR 05/29/2018 BAIMA, SATHISH L IC DESIGNER 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 Ot K76.89 OTHER SPECIFIED DISEASES OF LIVER 05/29/2018 BAIMA, SATHISH L IC DESIGNER 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 Ot N28.1 CYST OF KIDNEY, ACQUIRED 05/29/2018 BAIMA, SATHISH L IC DESIGNER 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 Ot 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 05/29/2018 BAIMA, SATHISH L IC DESIGNER 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 Ot 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[place] [facility] 05/29/2018 BAIMA SATHISH L IC DESIGNER 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 Ot I71.4 ABDOMINAL AORTIC ANEURYSM, WITHOUT RUPTU 05/29/2018 BAIMA SATHISH L IC DESIGNER 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 Ot I77.2 RUPTURE OF ARTERY 05/29/2018 BAIMA SATHISH L IC DESIGNER 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 Ot J43.9 EMPHYSEMA, UNSPECIFIED 05/29/2018 BAIMA, SATHISH L IC DESIGNER 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 Ot 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 05/29/2018 MARCIA LUI MD Ot I65.2 3 OCCLUSION AND STENOSIS OF [place] 05/29/2018 MARCIA LUI MD Ot Z01.8 10 ENCOUNTER FOR PREPROCEDURAL CARDIOVASCUL 05/29/2018 MARCIA LUI MD Ot Z01.8 11 ENCOUNTER FOR PREPROCEDURAL RESPIRATORY 05/29/2018 MARCIA LUI MD F Ot Z01.8 12 ENCOUNTER FOR PREPROCEDURAL LABORATORY E 05/29/2018 BISHNU ROLDAN FACC, CHELLE FACP CCDS Ot E78.5 HYPERLIPIDEMIA, UNSPECIFIED 05/29/2018 BISHNU ROLDAN FACC, ALI FACP CCDS Ot I25.10 ATHSCL HEART DISEASE OF [place] CORONARY 05/29/2018 BISHNU ROLDAN FACC, CHELLE FACP CCDS Ot I48.0 PAROXYSMAL ATRIAL FIBRILLATION 05/29/2018 BISHNU ROLDAN FACC, ALI FACP CCDS Ot I71.4 ABDOMINAL AORTIC ANEURYSM, WITHOUT RUPTU 05/29/2018 BISHNU ROLDAN FACC, CHELLE FACP CCDS Ot R06.02 SHORTNESS OF BREATH 05/29/2018 BISHNU ROLDAN FACC, CHELLE FACP CCDS Ot R53.1 WEAKNESS 05/29/2018 MARCIA LUI MD F Ot I65.2 3 OCCLUSION AND STENOSIS OF [place] 05/29/2018 MARCIA LUI MD F Ot Z01.8 10 ENCOUNTER FOR PREPROCEDURAL CARDIOVASCUL 05/29/2018 MARCIA LUI MD F Ot Z01.8 11 ENCOUNTER FOR PREPROCEDURAL RESPIRATORY 05/29/2018 SHANIQUE VEGA MD F Ot R82.90 UNSPECIFIED ABNORMAL FINDINGS IN URINE 05/29/2018 MARCIA LUI MD F Ot I65.2 3 OCCLUSION AND STENOSIS OF [place] 05/29/2018 MARCIA LUI MD F Ot Z01.8 10 ENCOUNTER FOR PREPROCEDURAL CARDIOVASCUL 05/29/2018 MARCIA LUI MD F Ot Z01.8 11 ENCOUNTER FOR PREPROCEDURAL RESPIRATORY 05/29/2018 RAFIQ CAMPOVERDEP Ot 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 05/29/2018 RAFIQ CAMPOVERDE IC DESIGNER 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 Ot I70.8 ATHEROSCLEROSIS OF OTHER ARTERIES 05/29/2018 RAFIQ CAMPOVERDE IC DESIGNER 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 Ot I71.4 ABDOMINAL AORTIC ANEURYSM, WITHOUT RUPTU 05/29/2018 RAFIQ CAMPOVERDEP Ot 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 05/29/2018 RAFIQ CAMPOVERDE IC DESIGNER 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 Ot K43.9 VENTRAL HERNIA WITHOUT OBSTRUCTION OR GA 05/29/2018 RAFIQ CAMPOVERDE IC DESIGNER 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 Ot N28.89 OTHER SPECIFIED DISORDERS OF KIDNEY AND 05/29/2018 MARCIA LUI MD Ot I65.2 3 OCCLUSION AND STENOSIS OF [place] 05/29/2018 MARCIA LUI MD Ot Z01.8 10 ENCOUNTER FOR PREPROCEDURAL CARDIOVASCUL 05/29/2018 MARCIA LUI MD Ot Z01.8 11 ENCOUNTER FOR PREPROCEDURAL RESPIRATORY 05/30/2018 MARCIA LUI MD Ot I65.2 3 OCCLUSION AND STENOSIS OF [place] 05/30/2018 MARCIA LUI MD Ot Z01.8 10 ENCOUNTER FOR PREPROCEDURAL CARDIOVASCUL 05/30/2018 MARCIA LUI MD Ot Z01.8 11 ENCOUNTER FOR PREPROCEDURAL RESPIRATORY 09/04/2018 JENNIFER EGAN [...] PAIN, UNSPECIFIED 09/04/2018 JENNIFER EGAN Ot Z79.01 DETENTION (CURRENT) USE OF ANTICOAGULANT 09/04/2018 JENNIFER EGAN Ot Z79.51 DETENTION (CURRENT) USE OF INHALED STERO 09/04/2018 JENNIFER EGAN Ot Z79.82 CORPORATE DRIVER (CURRENT) USE OF ASPIRIN 09/04/2018 JENNIFER EGAN Ot Z79.84 DETENTION (CURRENT) USE OF ORAL HYPOGLYC 09/04/2018 JENNIFER [...] PAIN, UNSPECIFIED 09/11/2018 JENNIFER EGAN Ot Z79.01 DETENTION (CURRENT) USE OF ANTICOAGULANT 09/11/2018 JENNIFER EGAN Ot Z79.51 DETENTION (CURRENT) USE OF INHALED STERO 09/11/2018 JENNIFER EGAN Ot Z79.82 DETENTION (CURRENT) USE OF ASPIRIN 09/11/2018 JENNIFER EGAN Ot Z79.84 DETENTION (CURRENT) USE OF ORAL HYPOGLYC 09/11/2018 JENNIFER [...] Ot Z96.0 PRESENCE OF UROGENITAL IMPLANTS 04/06/2019 AMX DHILLON Ot 401.1 BENIGN HYPERTENSION 04/06/2019 MAX DHILLON IC DESIGNER 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 Ot 424.1 AORTIC VALVE DISORDER 04/06/2019 MAX DHILLON Ot 785.2 CARDIAC MURMURS NEC 04/06/2019 MAX DHILLON Ot 786.05 SHORTNESS OF BREATH 04/06/2019 ANDRE HERNANDEZ DO Ot 715.91 OSTEOARTHROS NOS-SHLDER 04/06/2019 ANDRE HERNANDEZ DO Ot 727.61 ROTATOR CUFF RUPTURE 04/06/2019 DIANNA MACHADO MD Ot 278. 00 OBESITY, NOS 04/06/2019 DIANNA MACHADO MD Ot 721. 3 LUMBOSACRAL SPONDYLOSIS 04/06/2019 DIANNA MACHADO MD Ot 724. 6 DISORDERS OF SACRUM 04/06/2019 DIANNA MACHADO MD Ot 729. 1 MYALGIA AND MYOSITIS NOS 04/06/2019 DIANNA MACHADO MD Ot V58. 69 OTH MED,LT,CURRENT USE 04/06/2019 DIANNA MACHADO MD Ot V85. 35 BODY MASS INDEX 35.0-35.9, ADULT 04/06/2019 DIANNA MACHADO MD Ot 278. 00 OBESITY, NOS 04/06/2019 DIANNA MACHADO MD Ot 715. 95 OSTEOARTHROS NOS-PELVIS 04/06/2019 DIANNA MACHADO MD Ot 721. 3 LUMBOSACRAL SPONDYLOSIS 04/06/2019 DIANNA MACHADO MD Ot 729. 1 MYALGIA AND MYOSITIS NOS 04/06/2019 JEANNETTE ROLDAN, DIANNA Adhikari Ot V58. 69 OT MED,LT,CURRENT USE 04/06/2019 JEANNETTE ROLDAN, DIANNA Adhikari Ot V85. 33 BODY MASS INDEX 33.0-33.9, ADULT 04/06/2019 GARY ROLDAN, SHANIQUE Funk Ot 791 .9 ABN URINE FINDINGS NEC 04/06/2019 BISHNU HDEZC, ALI FACP CCDS Ot E78.5 HYPERLIPIDEMIA, UNSPECIFIED 04/06/2019 BISHNU ROLDAN FACC, ALI FACP CCDS Ot I10 ESSENTIAL (PRIMARY) HYPERTENSION 04/06/2019 BISHNU ROLDAN FACC, ALI FACP CCDS Ot I25.10 ATHSCL HEART DISEASE OF [place] CORONARY 04/06/2019 BISHNU ROLDAN FACC, ALI FACP CCDS Ot I48.0 PAROXYSMAL ATRIAL FIBRILLATION 04/06/2019 BISHNU ROLDAN FACC, ALI FACP CCDS Ot I65.29 OCCLUSION AND STENOSIS OF UNSPECIFIED CA 04/06/2019 BISHNU ROLDAN FACC, ALI FACP CCDS Ot R06.02 SHORTNESS OF BREATH 04/06/2019 BISHNU ROLDAN FACC, ALI FACP CCDS Ot E78.5 HYPERLIPIDEMIA, UNSPECIFIED 04/06/2019 BISHNU ROLDAN FACC, ALI FACP CCDS Ot I10 ESSENTIAL (PRIMARY) HYPERTENSION 04/06/2019 BIHSNU ROLDAN FACC, ALI FACP CCDS Ot I25.10 ATHSCL HEART DISEASE OF [place] CORONARY 04/06/2019 BISHNU HDEZC, ALI FACP CCDS Ot I48.0 PAROXYSMAL ATRIAL FIBRILLATION 04/06/2019 BISHNU ROLDAN FACC, ALI FACP CCDS Ot I65.29 OCCLUSION AND STENOSIS OF UNSPECIFIED CA 04/06/2019 BISHNU ROLDAN FACC, ALI FACP CCDS Ot E78.4 OTHER HYPERLIPIDEMIA 04/06/2019 BISHNU HDEZC, ALI FACP CCDS Ot I10 ESSENTIAL (PRIMARY) HYPERTENSION 04/06/2019 BISHNU ROLDAN FACC, ALI FACP CCDS Ot I25.10 ATHSCL HEART DISEASE OF [place] CORONARY 04/06/2019 BISHNU HDEZC, ALI FACP CCDS Ot I48.0 PAROXYSMAL ATRIAL FIBRILLATION 04/06/2019 BISHNU HDEZC, ALI FACP CCDS Ot I71.4 ABDOMINAL AORTIC ANEURYSM, WITHOUT RUPTU 04/06/2019 LUL NORWOOD MD Ot R32 UNSPECIFIED URINARY INCONTINENCE 04/06/2019 LUL NORWOOD MD Ot R33.9 RETENTION OF URINE, UNSPECIFIED 04/06/2019 LUL NORWOOD MD Ot Z01.8 18 ENCOUNTER FOR OTHER PREPROCEDURAL EXAMIN 04/06/2019 BAIMASATHISH L IC DESIGNER 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 Ot 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 04/06/2019 BAIMA SATHISH L IC DESIGNER 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 Ot 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 04/06/2019 BAIMASATHISH L IC DESIGNER 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 Ot I71.4 ABDOMINAL AORTIC ANEURYSM, WITHOUT RUPTU 04/06/2019 SATHISH ABAD L IC DESIGNER 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 Ot K42.9 UMBILICAL HERNIA WITHOUT OBSTRUCTION OR 04/06/2019 BAILACY SATHISH L IC DESIGNER 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 Ot K76.89 OTHER SPECIFIED DISEASES OF [place] 04/06/2019 KEVONLACY SATHISH L IC DESIGNER 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 Ot N28.1 CYST OF KIDNEY, ACQUIRED 04/06/2019 BAIMASATHISH L IC DESIGNER 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 Ot 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 04/06/2019 BAIMASATHISH L IC DESIGNER 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 Ot 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 04/06/2019 SATHISH ABAD L IC DESIGNER 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 Ot I71.4 ABDOMINAL AORTIC ANEURYSM, WITHOUT RUPTU 04/06/2019 SATHISH ABAD L IC DESIGNER 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 Ot I77.2 RUPTURE OF ARTERY 04/06/2019 KEVONLACY SATHISH L IC DESIGNER 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 Ot J43.9 EMPHYSEMA, UNSPECIFIED 04/06/2019 BAILACY SATHISH L IC DESIGNER 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 Ot 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 04/06/2019 MARCIA LUI MD F Ot I65.2 3 OCCLUSION AND STENOSIS OF [place] 04/06/2019 MARCIA LUI MD F Ot Z01.8 10 ENCOUNTER FOR PREPROCEDURAL CARDIOVASCUL 04/06/2019 MARCIA LUI MD F Ot Z01.8 11 ENCOUNTER FOR PREPROCEDURAL RESPIRATORY 04/06/2019 MARCIA LUI MD F Ot Z01.8 12 ENCOUNTER FOR PREPROCEDURAL LABORATORY E 04/06/2019 BISHNU ROLDAN FACC, ALI FACP CCDS Ot E78.5 HYPERLIPIDEMIA, UNSPECIFIED 04/06/2019 BISHNU ROLDAN FACC, CHELLE FACP CCDS Ot I25.10 ATHSCL HEART DISEASE OF [place] CORONARY 04/06/2019 BISHNU ROLDAN FACC, CHELLE FACP CCDS Ot I48.0 PAROXYSMAL ATRIAL FIBRILLATION 04/06/2019 BISHNU ROLDAN FACC, ALI FACP CCDS Ot I71.4 ABDOMINAL AORTIC ANEURYSM, WITHOUT RUPTU 04/06/2019 BISHNU ROLDAN FACC, [facility] R06.02 SHORTNESS OF BREATH 04/06/2019 BISHNU ROLDAN FACC, CHELLE FACP CCDS Ot R53.1 WEAKNESS 04/06/2019 MARCIA LUI MD F Ot I65.2 3 OCCLUSION AND STENOSIS OF [place] 04/06/2019 MARCIA LUI MD F Ot Z01.8 10 ENCOUNTER FOR PREPROCEDURAL CARDIOVASCUL 04/06/2019 MARCIA LUI MD F Ot Z01.8 11 ENCOUNTER FOR PREPROCEDURAL RESPIRATORY 04/06/2019 SHANIQUE VEGA MD F Ot R82.90 UNSPECIFIED ABNORMAL FINDINGS IN URINE 04/06/2019 MARCIA LUI MD F Ot I65.2 3 OCCLUSION AND STENOSIS OF [place] 04/06/2019 MARCIA LUI MD F Ot Z01.8 10 ENCOUNTER FOR PREPROCEDURAL CARDIOVASCUL 04/06/2019 MARCIA LUI MD F Ot Z01.8 11 ENCOUNTER FOR PREPROCEDURAL RESPIRATORY 04/06/2019 RAFIQ CAMPOVERDE IC DESIGNER 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 Ot 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 04/06/2019 RAFIQ CAMPOVERDE IC DESIGNER 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 Ot I70.8 ATHEROSCLEROSIS OF OTHER ARTERIES 04/06/2019 RAFIQ CAMPOVERDE IC DESIGNER 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 Ot I71.4 ABDOMINAL AORTIC ANEURYSM, WITHOUT RUPTU 04/06/2019 RAFIQ CAMPOVERDE IC DESIGNER 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 Ot 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 04/06/2019 RAFIQ CAMPOVERDE IC DESIGNER 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 Ot K43.9 VENTRAL HERNIA WITHOUT OBSTRUCTION OR GA 04/06/2019 RAFIQ CAMPOVERDE IC DESIGNER 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 Ot N28.89 OTHER SPECIFIED DISORDERS OF KIDNEY AND 04/07/2019 SHAHNAZ MARQUEZ IC DESIGNER 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 Ot R0 5 COUGH 04/08/2019 SHAHNAZ MARQUEZ IC DESIGNER 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 Ot R0 5 COUGH 04/21/2019 ELIZABETHSHARIF BANKS MD Ot A41 .9 SEPSIS, UNSPECIFIED ORGANISM 04/21/2019 SHARIF JOHNSON MD Ot D62 ACUTE POSTHEMORRHAGIC ANEMIA 04/21/2019 SHARIF JOHNSON MD, Ot E03 .9 HYPOTHYROIDISM, UNSPECIFIED 04/21/2019 SHARIF JOHNSON MD Ot E11 .9 TYPE 2 DIABETES MELLITUS WITHOUT COMPLIC 04/21/2019 SHARIF JOHNSON MD Ot E78 .5 HYPERLIPIDEMIA, UNSPECIFIED 04/21/2019 SAHRIF JOHNSON MD Ot F32 .9 MAJOR DEPRESSIVE DISORDER, SINGLE EPISOD 04/21/2019 SHARIF JOHNSON MD Ot F41 .0 PANIC DISORDER [EPISODIC PAROXYSMAL ANXI 04/21/2019 SHARIF JOHNSON MD, Ot 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 04/21/2019 SHARIF JOHNSON MD, Ot I25.10 ATHSCL HEART DISEASE OF [place] CORONARY 04/21/2019 SHARIF JOHNSON MD Ot I48 .2 CHRONIC ATRIAL FIBRILLATION 04/21/2019 SHARIF JOHNSON MD Ot I48.92 UNSPECIFIED ATRIAL FLUTTER 04/21/2019 SHARIF JOHNSON MD Ot I50.32 CHRONIC DIASTOLIC (CONGESTIVE) HEART KATHRYN 04/21/2019 SHARIF JOHNSON MD, Ot I70 .1 ATHEROSCLEROSIS OF RENAL ARTERY 04/21/2019 SHARIF JOHNSON MD Ot I71 .4 ABDOMINAL AORTIC ANEURYSM, WITHOUT RUPTU 04/21/2019 SHARIF JOHNSON MD, Ot J44 .9 CHRONIC OBSTRUCTIVE PULMONARY DISEASE, U 04/21/2019 SHARIF JOHNSON MD Ot K25 .4 CHRONIC OR UNSPECIFIED GASTRIC ULCER WIT 04/21/2019 SHARIF JOHNSON MD Ot K42 .0 UMBILICAL HERNIA WITH OBSTRUCTION, WITHO 04/21/2019 SHARIF JOHNSON MD Ot M19.91 PRIMARY OSTEOARTHRITIS, UNSPECIFIED SITE 04/21/2019 SHARIF JOHNSON MD, Ot M54 .9 DORSALGIA, UNSPECIFIED 04/21/2019 SHARIF JOHNSON MD Ot N39 .0 URINARY TRACT INFECTION, SITE NOT SPECIF 04/21/2019 SHARIF JOHNSON MD Ot R57 .1 HYPOVOLEMIC SHOCK 04/21/2019 SHARIF JOHNSON MD Ot T83.510A I/I REACT D/T CYSTOSTOMY CATHETER, INITI 04/21/2019 SHARIF JOHNSON MD, Ot Z79.01 CORPORATE DRIVER (CURRENT) USE OF ANTICOAGULANT 04/21/2019 SHARIF JOHNSON MD, Ot Z79.02 DETENTION (CURRENT) USE OF ANTITHROMBOTI 04/21/2019 SHARIF JOHNSON MD, Ot Z79.82 CORPORATE DRIVER (CURRENT) USE OF ASPIRIN 04/21/2019 SHARIF JOHNSON MD, Ot Z79.84 CORPORATE DRIVER (CURRENT) USE OF ORAL HYPOGLYC 04/21/2019 SHARIF JOHNSON MD, Ot Z86.73 PRSNL HX OF TIA (TIA), AND CEREB INFRC W 04/21/2019 SHARIF JOHNSON MD, Ot Z87.891 PERSONAL HISTORY OF NICOTINE DEPENDENCE 04/21/2019 SHARIF JOHNSON MD, Ot 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 04/21/2019 SHARIF JOHNSON MD, Ot Z98 .1 ARTHRODESIS STATUS 04/21/2019 SHARIF JOHNSON MD, Ot A41 .9 SEPSIS, UNSPECIFIED ORGANISM 04/21/2019 SHARIF JOHNSON MD, Ot D62 ACUTE POSTHEMORRHAGIC ANEMIA 04/21/2019 SHARIF JOHNSON MD, Ot E03 .9 HYPOTHYROIDISM, UNSPECIFIED 04/21/2019 SHARIF JOHNSON MD, Ot E11 .9 TYPE 2 DIABETES MELLITUS WITHOUT COMPLIC 04/21/2019 SHARIF JOHNSON MD, Ot E78 .5 HYPERLIPIDEMIA, UNSPECIFIED 04/21/2019 SHARIF JOHNSON MD, Ot F32 .9 MAJOR DEPRESSIVE DISORDER, SINGLE EPISOD 04/21/2019 SHARIF JOHNSON MD, Ot F41 .0 PANIC DISORDER [EPISODIC PAROXYSMAL ANXI 04/21/2019 SHARIF JOHNSON MD, Ot 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 04/21/2019 SHARIF JOHNSON MD, Ot I25.10 ATHSCL HEART DISEASE OF [place] CORONARY 04/21/2019 SHARIF JOHNSON MD, Ot I48 .2 CHRONIC ATRIAL FIBRILLATION 04/21/2019 SHARIF JOHNSON MD, Ot I48.92 UNSPECIFIED ATRIAL FLUTTER 04/21/2019 SHARIF JOHNSON MD, Ot I50.32 CHRONIC DIASTOLIC (CONGESTIVE) HEART KATHRYN 04/21/2019 SHARIF JOHNSON MD, Ot I70 .1 ATHEROSCLEROSIS OF RENAL ARTERY 04/21/2019 SHARIF JOHNSON MD, Ot I71 .4 ABDOMINAL AORTIC ANEURYSM, WITHOUT RUPTU 04/21/2019 SHARIF JOHNSON MD, Ot J44 .9 CHRONIC OBSTRUCTIVE PULMONARY DISEASE, U 04/21/2019 SHARIF JOHNSON MD, Ot K25 .4 CHRONIC OR UNSPECIFIED GASTRIC ULCER WIT 04/21/2019 SHARIF JOHNSON MD, Ot K42 .0 UMBILICAL HERNIA WITH OBSTRUCTION, WITHO 04/21/2019 SHARIF JOHNSON MD, Ot M19.91 PRIMARY OSTEOARTHRITIS, UNSPECIFIED SITE 04/21/2019 SHARIF JOHNSON MD, Ot M54 .9 DORSALGIA, UNSPECIFIED 04/21/2019 SHARIF JOHNSON MD, Ot N39 .0 URINARY TRACT INFECTION, SITE NOT SPECIF 04/21/2019 SHARIF JOHNSON MD, Ot R57 .1 HYPOVOLEMIC SHOCK 04/21/2019 SHARIF JOHNSON MD, Ot T83.510A I/I REACT D/T CYSTOSTOMY CATHETER, INITI 04/21/2019 SHARIF JOHNSON MD, Ot Z79.01 DETENTION (CURRENT) USE OF ANTICOAGULANT 04/21/2019 SHARIF JOHNSON MD, Ot Z79.02 DETENTION (CURRENT) USE OF ANTITHROMBOTI 04/21/2019 SHARIF JOHNSON MD, Ot Z79.82 CORPORATE DRIVER (CURRENT) USE OF ASPIRIN 04/21/2019 SHARIF JOHNSON MD, Ot Z79.84 CORPORATE DRIVER (CURRENT) USE OF ORAL HYPOGLYC 04/21/2019 SHARIF JOHNSON MD, Ot Z86.73 PRSNL HX OF TIA (TIA), AND CEREB INFRC W 04/21/2019 SHARIF JOHNSON MD, Ot Z87.891 PERSONAL HISTORY OF NICOTINE DEPENDENCE 04/21/2019 SHARIF JOHNSON MD, Ot 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 04/21/2019 SHARIF JOHNSON MD, Ot Z98 .1 ARTHRODESIS STATUS 04/21/2019 SHARIF JOHNSON MD, Ot A41 .9 SEPSIS, UNSPECIFIED ORGANISM 04/21/2019 SHARIF JOHNSON MD Ot D62 ACUTE POSTHEMORRHAGIC ANEMIA 04/21/2019 SHARIF JOHNSON MD, Ot E03 .9 HYPOTHYROIDISM, UNSPECIFIED 04/21/2019 SHARIF JOHNSON MD, Ot E11 .9 TYPE 2 DIABETES MELLITUS WITHOUT COMPLIC 04/21/2019 SHARIF JOHNSON MD, Ot E78 .5 HYPERLIPIDEMIA, UNSPECIFIED 04/21/2019 SHARIF JOHNSON MD, Ot F32 .9 MAJOR DEPRESSIVE DISORDER, SINGLE EPISOD 04/21/2019 SHARFI JOHNSON MD, Ot F41 .0 PANIC DISORDER [EPISODIC PAROXYSMAL ANXI 04/21/2019 SHARIF JOHNSON MD, Ot 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 04/21/2019 SHARIF JOHNSON MD, Ot I25.10 ATHSCL HEART DISEASE OF [place] CORONARY 04/21/2019 SHARIF JOHNSON MD, Ot I48 .2 CHRONIC ATRIAL FIBRILLATION 04/21/2019 SHARIF JOHNSON MD, Ot I48.92 UNSPECIFIED ATRIAL FLUTTER 04/21/2019 SHARIF JOHNSON MD, Ot I50.32 CHRONIC DIASTOLIC (CONGESTIVE) HEART KATHRYN 04/21/2019 SHARIF JOHNSON MD, Ot I70 .1 ATHEROSCLEROSIS OF RENAL ARTERY 04/21/2019 SHARIF JOHNSON MD, Ot I71 .4 ABDOMINAL AORTIC ANEURYSM, WITHOUT RUPTU 04/21/2019 SHARIF JOHNSON MD, Ot J44 .9 CHRONIC OBSTRUCTIVE PULMONARY DISEASE, U 04/21/2019 SHARIF JOHNSON MD, Ot K25 .4 CHRONIC OR UNSPECIFIED GASTRIC ULCER WIT 04/21/2019 SHARIF JOHNSON MD, Ot K42 .0 UMBILICAL HERNIA WITH OBSTRUCTION, WITHO 04/21/2019 SHARIF JOHNSON MD, Ot M19.91 PRIMARY OSTEOARTHRITIS, UNSPECIFIED SITE 04/21/2019 SHARIF JOHNSON MD, Ot M54 .9 DORSALGIA, UNSPECIFIED 04/21/2019 SHARIF JOHNSON MD, Ot N39 .0 URINARY TRACT INFECTION, SITE NOT SPECIF 04/21/2019 SHARIF JOHNSON MD Ot R57 .1 HYPOVOLEMIC SHOCK 04/21/2019 SHARIF JOHNSON MD, Ot T83.510A I/I REACT D/T CYSTOSTOMY CATHETER, INITI 04/21/2019 SHARIF JOHNSON MD, Ot Z79.01 DETENTION (CURRENT) USE OF ANTICOAGULANT 04/21/2019 SHARIF JOHNSON MD, Ot Z79.02 DETENTION (CURRENT) USE OF ANTITHROMBOTI 04/21/2019 SHARIF JOHNSON MD, Ot Z79.82 CORPORATE DRIVER (CURRENT) USE OF ASPIRIN 04/21/2019 SHARIF JOHNSON MD, Ot Z79.84 DETENTION (CURRENT) USE OF ORAL HYPOGLYC 04/21/2019 SHARIF JOHNSON MD, Ot Z86.73 PRSNL HX OF TIA (TIA), AND CEREB INFRC W 04/21/2019 SHARIF JOHNSON MD, Ot Z87.891 PERSONAL HISTORY OF NICOTINE DEPENDENCE 04/21/2019 SHARIF JOHNSON MD, Ot 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 04/21/2019 SHARIF JOHNSON MD, Ot Z98 .1 ARTHRODESIS STATUS 04/22/2019 SHARIF JOHNSON MD, Ot A41 .9 SEPSIS, UNSPECIFIED ORGANISM 04/22/2019 SHARIF JOHNSON MD Ot D62 ACUTE POSTHEMORRHAGIC ANEMIA 04/22/2019 SHARIF JOHNSON MD, Ot E03 .9 HYPOTHYROIDISM, UNSPECIFIED 04/22/2019 SHARIF JOHNSON MD, Ot E11 .9 TYPE 2 DIABETES MELLITUS WITHOUT COMPLIC 04/22/2019 SHARIF JOHNSON MD, Ot E78 .5 HYPERLIPIDEMIA, UNSPECIFIED 04/22/2019 SHARIF JOHNSON MD, Ot F32 .9 MAJOR DEPRESSIVE DISORDER, SINGLE EPISOD 04/22/2019 SHARIF JOHNSON MD, Ot F41 .0 PANIC DISORDER [EPISODIC PAROXYSMAL ANXI 04/22/2019 SHARIF JOHNSON MD, Ot 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 04/22/2019 SHARIF JOHNSON MD, Ot I25.10 ATHSCL HEART DISEASE OF [place] CORONARY 04/22/2019 SHARIF JOHNSON MD, Ot I48 .2 CHRONIC ATRIAL FIBRILLATION 04/22/2019 SHARIF JOHNSON MD, Ot I48.92 UNSPECIFIED ATRIAL FLUTTER 04/22/2019 SHARIF JOHNSON MD, Ot I50.32 CHRONIC DIASTOLIC (CONGESTIVE) HEART KATHRYN 04/22/2019 SHARIF JOHNSON MD, Ot I70 .1 ATHEROSCLEROSIS OF RENAL ARTERY 04/22/2019 SHARIF JOHNSON MD, Ot I71 .4 ABDOMINAL AORTIC ANEURYSM, WITHOUT RUPTU 04/22/2019 SHARIF JOHNSON MD, Ot J44 .9 CHRONIC OBSTRUCTIVE PULMONARY DISEASE, U 04/22/2019 SHARIF JOHNSON MD, Ot K25 .4 CHRONIC OR UNSPECIFIED GASTRIC ULCER WIT 04/22/2019 SHARIF JOHNSON MD, Ot K42 .0 UMBILICAL HERNIA WITH OBSTRUCTION, WITHO 04/22/2019 SHARIF JOHNSON MD, Ot M19.91 PRIMARY OSTEOARTHRITIS, UNSPECIFIED SITE 04/22/2019 SHARIF JOHNSON MD, Ot M54 .9 DORSALGIA, UNSPECIFIED 04/22/2019 SHARIF JOHNSON MD, Ot N39 .0 URINARY TRACT INFECTION, SITE NOT SPECIF 04/22/2019 SHARIF JOHNSON MD, Ot R57 .1 HYPOVOLEMIC SHOCK 04/22/2019 SHARIF JOHNSON MD, Ot T83.510A I/I REACT D/T CYSTOSTOMY CATHETER, INITI 04/22/2019 SHARIF JOHNSON MD, Ot Z79.01 DETENTION (CURRENT) USE OF ANTICOAGULANT 04/22/2019 SHARIF JOHNSON MD, Ot Z79.02 CORPORATE DRIVER (CURRENT) USE OF ANTITHROMBOTI 04/22/2019 SHARIF JOHNSON MD, Ot Z79.82 CORPORATE DRIVER (CURRENT) USE OF ASPIRIN 04/22/2019 SHARIF JOHNSON MD, Ot Z79.84 CORPORATE DRIVER (CURRENT) USE OF ORAL HYPOGLYC 04/22/2019 SHARIF JOHNSON MD, Ot Z86.73 PRSNL HX OF TIA (TIA), AND CEREB INFRC W 04/22/2019 SHARIF JOHNSON MD, Ot Z87.891 PERSONAL HISTORY OF NICOTINE DEPENDENCE 04/22/2019 SHARIF JOHNSON MD, Ot 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 04/22/2019 SHARIF JOHNSON MD, Ot Z98 .1 ARTHRODESIS STATUS 04/23/2019 SHARIF JOHNSON MD, Ot A41 .9 SEPSIS, UNSPECIFIED ORGANISM 04/23/2019 SHARIF JOHNSON MD, Ot D62 ACUTE POSTHEMORRHAGIC ANEMIA 04/23/2019 SHARIF JOHNSON MD Ot E03 .9 HYPOTHYROIDISM, UNSPECIFIED 04/23/2019 SHARIF JOHNSON MD, Ot E11 .9 TYPE 2 DIABETES MELLITUS WITHOUT COMPLIC 04/23/2019 SHARIF JOHNSON MD, Ot E78 .5 HYPERLIPIDEMIA, UNSPECIFIED 04/23/2019 SHARIF JOHNOSN MD, Ot F32 .9 MAJOR DEPRESSIVE DISORDER, SINGLE EPISOD 04/23/2019 SHARIF JOHNSON MD, Ot F41 .0 PANIC DISORDER [EPISODIC PAROXYSMAL ANXI 04/23/2019 SHARIF JOHNSON MD, Ot 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 04/23/2019 SHARIF JOHNSON MD, Ot I25.10 ATHSCL HEART DISEASE OF [place] CORONARY 04/23/2019 SHARIF JOHNSON MD, Ot I48 .2 CHRONIC ATRIAL FIBRILLATION 04/23/2019 SHARIF JOHNSON MD, Ot I48.92 UNSPECIFIED ATRIAL FLUTTER 04/23/2019 SHARIF JOHNSON MD, Ot I50.32 CHRONIC DIASTOLIC (CONGESTIVE) HEART KATHRYN 04/23/2019 SHARIF JOHNSON MD, Ot I70 .1 ATHEROSCLEROSIS OF RENAL ARTERY 04/23/2019 SHARIF JOHNSON MD, Ot I71 .4 ABDOMINAL AORTIC ANEURYSM, WITHOUT RUPTU 04/23/2019 SHARIF JOHNSON MD, Ot J44 .9 CHRONIC OBSTRUCTIVE PULMONARY DISEASE, U 04/23/2019 SHARIF JOHNSON MD, Ot K25 .4 CHRONIC OR UNSPECIFIED GASTRIC ULCER WIT 04/23/2019 SHARIF JOHNSON MD, Ot K42 .0 UMBILICAL HERNIA WITH OBSTRUCTION, WITHO 04/23/2019 SHARIF JOHNSON MD Ot M19.91 PRIMARY OSTEOARTHRITIS, UNSPECIFIED SITE 04/23/2019 SHARIF JOHNSON MD, Ot M54 .9 DORSALGIA, UNSPECIFIED 04/23/2019 SHARIF JOHNSON MD, Ot N39 .0 URINARY TRACT INFECTION, SITE NOT SPECIF 04/23/2019 SHARIF JOHNSON MD Ot R57 .1 HYPOVOLEMIC SHOCK 04/23/2019 SHARIF JOHNSON MD, Ot T83.510A I/I REACT D/T CYSTOSTOMY CATHETER, INITI 04/23/2019 SHARIF JOHNSON MD, Ot Z79.01 CORPORATE DRIVER (CURRENT) USE OF ANTICOAGULANT 04/23/2019 SHARIF JOHNSON MD, Ot Z79.02 DETENTION (CURRENT) USE OF ANTITHROMBOTI 04/23/2019 SHARIF JOHNSON MD, Ot Z79.82 DETENTION (CURRENT) USE OF ASPIRIN 04/23/2019 SHARIF JOHNSON MD, Ot Z79.84 DETENTION (CURRENT) USE OF ORAL HYPOGLYC 04/23/2019 SHARIF JOHNSON MD, Ot Z86.73 PRSNL HX OF TIA (TIA), AND CEREB INFRC W 04/23/2019 SHARIF JOHNSON MD, Ot Z87.891 PERSONAL HISTORY OF NICOTINE DEPENDENCE 04/23/2019 SHARIF JOHNSON MD, Ot 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 04/23/2019 SHARIF JOHNSON MD, Ot Z98 .1 ARTHRODESIS STATUS 04/23/2019 SHARIF JOHNSON MD, Ot A41 .9 SEPSIS, UNSPECIFIED ORGANISM 04/23/2019 SHARIF JOHNSON MD Ot D62 ACUTE POSTHEMORRHAGIC ANEMIA 04/23/2019 SHARIF JOHNSON MD, Ot E03 .9 HYPOTHYROIDISM, UNSPECIFIED 04/23/2019 SHARIF JOHNSON MD, Ot E11 .9 TYPE 2 DIABETES MELLITUS WITHOUT COMPLIC 04/23/2019 SHARIF JOHNSON MD, Ot E78 .5 HYPERLIPIDEMIA, UNSPECIFIED 04/23/2019 SHARIF JOHNSON MD Ot E87.70 FLUID OVERLOAD, UNSPECIFIED 04/23/2019 SHARIF JOHNSON MD, Ot F32 .9 MAJOR DEPRESSIVE DISORDER, SINGLE EPISOD 04/23/2019 SHARIF JOHNSON MD, Ot F41 .0 PANIC DISORDER [EPISODIC PAROXYSMAL ANXI 04/23/2019 SHARIF JOHNSON MD, Ot 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 04/23/2019 SHARIF JOHNSON MD, Ot I25.10 ATHSCL HEART DISEASE OF [place] CORONARY 04/23/2019 SHARIF JOHNSON MD, Ot I48 .2 CHRONIC ATRIAL FIBRILLATION 04/23/2019 SHARIF JOHNSON MD, Ot I48.92 UNSPECIFIED ATRIAL FLUTTER 04/23/2019 SHARIF JOHNSON MD, Ot I50.32 CHRONIC DIASTOLIC (CONGESTIVE) HEART KATHRYN 04/23/2019 SHARIF JOHNSON MD, Ot I70 .1 ATHEROSCLEROSIS OF RENAL ARTERY 04/23/2019 SHARIF JOHNSON MD, Ot I71 .4 ABDOMINAL AORTIC ANEURYSM, WITHOUT RUPTU 04/23/2019 SHARIF JOHNSON MD, Ot J44 .1 CHRONIC OBSTRUCTIVE PULMONARY DISEASE W 04/23/2019 SHARIF JOHNSON MD, Ot J44 .9 CHRONIC OBSTRUCTIVE PULMONARY DISEASE, U 04/23/2019 SHARIF JOHNSON MD, Ot K25 .4 CHRONIC OR UNSPECIFIED GASTRIC ULCER WIT 04/23/2019 SHARIF JOHNSON MD, Ot K42 .0 UMBILICAL HERNIA WITH OBSTRUCTION, WITHO 04/23/2019 SHARIF JOHNSON MD, Ot K57.30 DVRTCLOS OF LG INT W/O PERFORATION OR AB 04/23/2019 SHARIF JOHNSON MD, Ot K64 .8 OTHER HEMORRHOIDS 04/23/2019 SHARIF JOHNSON MD, Ot M19.91 PRIMARY OSTEOARTHRITIS, UNSPECIFIED SITE 04/23/2019 SHARIF JOHNSON MD, Ot M54 .9 DORSALGIA, UNSPECIFIED 04/23/2019 SHARIF JOHNSON MD, Ot N39 .0 URINARY TRACT INFECTION, SITE NOT SPECIF 04/23/2019 SHARIF JOHNSON MD, Ot R57 .1 HYPOVOLEMIC SHOCK 04/23/2019 SHARIF JOHNSON MD, Ot T83.510A I/I REACT D/T CYSTOSTOMY CATHETER, INITI 04/23/2019 HSARIF JOHNSON MD, Ot Z66 DO NOT RESUSCITATE 04/23/2019 SHARIF JOHNSON MD, Ot Z79.01 CORPORATE DRIVER (CURRENT) USE OF ANTICOAGULANT 04/23/2019 SHARIF JOHNSON MD, Ot Z79.02 DETENTION (CURRENT) USE OF ANTITHROMBOTI 04/23/2019 SHARIF JOHNSON MD, Ot Z79.82 DETENTION (CURRENT) USE OF ASPIRIN 04/23/2019 SHARIF JOHNSON MD, Ot Z79.84 CORPORATE DRIVER (CURRENT) USE OF ORAL HYPOGLYC 04/23/2019 SHARIF JOHSNON MD, Ot Z86.73 PRSNL HX OF TIA (TIA), AND CEREB INFRC W 04/23/2019 ELIZABETH MD, SHARIF N Ot Z87.891 PERSONAL HISTORY OF NICOTINE DEPENDENCE 04/23/2019 SHARIF JOHNSON MD Ot 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 04/23/2019 SHARIF JOHNSON MD Ot Z98 .1 ARTHRODESIS STATUS 04/24/2019 ERIK OTERO Ot E11.9 TYPE 2 DIABETES MELLITUS WITHOUT COMPLIC 04/24/2019 ERIK OTERO Ot F32.9 MAJOR DEPRESSIVE DISORDER, SINGLE EPISOD 04/24/2019 ERIK OTERO Ot F41.0 PANIC DISORDER [EPISODIC PAROXYSMAL ANXI 04/24/2019 ERIK OTERO Ot I48.91 UNSPECIFIED ATRIAL FIBRILLATION 04/24/2019 ERIK OTERO Ot J45.909 UNSPECIFIED ASTHMA, UNCOMPLICATED 04/24/2019 ERIK OTERO Ot M25.511 PAIN IN RIGHT SHOULDER 04/24/2019 ERIK OTERO Ot S46.911A STRAIN UNSP MUSC/FASC/TEND AT SHLDR/UP A 04/24/2019 ERIK OTERO Ot X50.1XXA OVEREXERTION FROM PROLONGED STATIC OR AW 04/24/2019 ERIK OTERO Ot Z79.52 CORPORATE DRIVER (CURRENT) USE OF SYSTEMIC STER 04/24/2019 ERIK OTERO Ot Z80.0 FAMILY HISTORY OF MALIGNANT NEOPLASM OF 04/24/2019 ERIK OTERO Ot Z82.49 FAMILY HX OF ISCHEM HEART DIS AND OTH DI 04/24/2019 ERIK OTERO Ot Z87.19 PERSONAL HISTORY OF OTHER DISEASES OF TH 04/24/2019 ERIK OTERO Ot Z87.440 PERSONAL HISTORY OF URINARY (TRACT) INFE 04/24/2019 ERIK OTERO Ot Z87.891 PERSONAL HISTORY OF NICOTINE DEPENDENCE 04/24/2019 ERIK OTERO Ot Z88.2 ALLERGY STATUS TO SULFONAMIDES STATUS 04/24/2019 ERIK OTERO Ot Z88.8 ALLERGY STATUS TO OTH DRUG/MEDS/BIOL SUB 04/24/2019 ERIK OTERO Ot Z90.49 ACQUIRED ABSENCE OF OTHER SPECIFIED PART 04/24/2019 ERIK OTERO Ot Z90.710 ACQUIRED ABSENCE OF BOTH CERVIX AND UTER 04/24/2019 ERIK OTERO Ot Z90.89 ACQUIRED ABSENCE OF OTHER ORGANS 04/24/2019 BERNOT, ERIK Ot 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 BYPASS GRAFT 04/24/2019 ERIK OTERO Ot Z98.890 OTHER SPECIFIED POSTPROCEDURAL STATES 04/28/2019 ERIK OTERO Ot E11.9 TYPE 2 DIABETES MELLITUS WITHOUT COMPLIC 04/28/2019 ERIK OTERO Ot F32.9 MAJOR DEPRESSIVE DISORDER, SINGLE EPISOD 04/28/2019 ERIK OTERO Ot F41.0 PANIC DISORDER [EPISODIC PAROXYSMAL ANXI 04/28/2019 ERIK OTERO Ot I48.91 UNSPECIFIED ATRIAL FIBRILLATION 04/28/2019 ERIK OTERO Ot J45.909 UNSPECIFIED ASTHMA, UNCOMPLICATED 04/28/2019 ERIK OTERO Ot M25.511 PAIN IN RIGHT SHOULDER 04/28/2019 ERIK OTERO Ot S46.911A STRAIN UNSP MUSC/FASC/TEND AT SHLDR/UP A 04/28/2019 ERIK OTERO Ot X50.1XXA OVEREXERTION FROM PROLONGED STATIC OR AW 04/28/2019 ERIK OTERO Ot Z79.52 CORPORATE DRIVER (CURRENT) USE OF SYSTEMIC STER 04/28/2019 ERIK OTERO Ot Z80.0 FAMILY HISTORY OF MALIGNANT NEOPLASM OF 04/28/2019 ERIK OTERO Ot Z82.49 FAMILY HX OF ISCHEM HEART DIS AND OTH DI 04/28/2019 ERIK OTERO Ot Z87.19 PERSONAL HISTORY OF OTHER DISEASES OF TH 04/28/2019 ERIK OTEOR Ot Z87.440 PERSONAL HISTORY OF URINARY (TRACT) INFE 04/28/2019 ERIK OTERO Ot Z87.891 PERSONAL HISTORY OF NICOTINE DEPENDENCE 04/28/2019 ERIK OTERO Ot Z88.2 ALLERGY STATUS TO SULFONAMIDES STATUS 04/28/2019 ERIK OTERO Ot Z88.8 ALLERGY STATUS TO OTH DRUG/MEDS/BIOL SUB 04/28/2019 ERIK OTERO Ot Z90.49 ACQUIRED ABSENCE OF OTHER SPECIFIED PART 04/28/2019 ERIK OTERO Ot Z90.710 ACQUIRED ABSENCE OF BOTH CERVIX AND UTER 04/28/2019 ERIK OTERO Ot Z90.89 ACQUIRED ABSENCE OF OTHER ORGANS 04/28/2019 ERIK OTERO Ot 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 BYPASS GRAFT 04/28/2019 ERIK OTERO Ot Z98.890 OTHER SPECIFIED POSTPROCEDURAL STATES 04/28/2019 CECILE MARQUEZNDA IC DESIGNER 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 Ot R0 5 COUGH 05/06/2019 SHAHNAZ MARQUEZ IC DESIGNER 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 Ot R0 5 COUGH 06/02/2019 CANDE BOYER BLOOM CONVEYOR OPERATOR Ot F41.9 ANXIETY DISORDER, UNSPECIFIED 06/02/2019 DARYL BOYERINE E BLOOM CONVEYOR OPERATOR Ot J43.2 CENTRILOBULAR EMPHYSEMA 06/02/2019 MERLINDARYL WESTINE E BLOOM CONVEYOR OPERATOR Ot Z72.0 TOBACCO USE 06/02/2019 MERLINDARYL WESTINE E BLOOM CONVEYOR OPERATOR Ot 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 BYPASS GRAFT 06/19/2019 DARYL BOYERINE E BLOOM CONVEYOR OPERATOR Ot F41.9 ANXIETY DISORDER, UNSPECIFIED 06/19/2019 DARYL BOYERINE E BLOOM CONVEYOR OPERATOR Ot J43.2 CENTRILOBULAR EMPHYSEMA 06/19/2019 DARYL BOYERINE E BLOOM CONVEYOR OPERATOR Ot Z72.0 TOBACCO USE 06/19/2019 MERLINDARYL WESTINE E BLOOM CONVEYOR OPERATOR Ot 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 BYPASS GRAFT 07/02/2019 CANDE BOYER BLOOM CONVEYOR OPERATOR Ot F41.9 ANXIETY DISORDER, UNSPECIFIED 07/02/2019 DARYL BOYERINE E BLOOM CONVEYOR OPERATOR Ot J43.2 CENTRILOBULAR EMPHYSEMA 07/02/2019 DARYL BOYERINE E BLOOM CONVEYOR OPERATOR Ot Z72.0 TOBACCO USE 07/02/2019 DARYL BOYERINE E BLOOM CONVEYOR OPERATOR Ot 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 BYPASS GRAFT 07/28/2019 DARYL BOYERINE E BLOOM CONVEYOR OPERATOR Ot F41.9 ANXIETY DISORDER, UNSPECIFIED 07/28/2019 DARYL BOYERINE E BLOOM CONVEYOR OPERATOR Ot J44.9 CHRONIC OBSTRUCTIVE PULMONARY DISEASE, U 07/28/2019 DARYL BOYERINE E BLOOM CONVEYOR OPERATOR Ot Z72.0 TOBACCO USE 08/14/2019 DARYL BOYERINE E BLOOM CONVEYOR OPERATOR Ot F41.9 ANXIETY DISORDER, UNSPECIFIED 08/14/2019 DARYL BOYERINE E BLOOM CONVEYOR OPERATOR Ot J44.9 CHRONIC OBSTRUCTIVE PULMONARY DISEASE, U 08/14/2019 DARYL BOYERINE E BLOOM CONVEYOR OPERATOR Ot Z72.0 TOBACCO USE 08/20/2019 DARYL BOYERINE E BLOOM CONVEYOR OPERATOR Ot F41.9 ANXIETY DISORDER, UNSPECIFIED 08/20/2019 DARYL BOYERINE E BLOOM CONVEYOR OPERATOR Ot J44.9 CHRONIC OBSTRUCTIVE PULMONARY DISEASE, U 08/20/2019 CANDE BOYER APRN Ot Z72.0 TOBACCO USE 01/14/2020 GIORGIO, VIRIDIANA DOVEP Ot E11.9 TYPE 2 DIABETES MELLITUS WITHOUT COMPLIC 01/14/2020 GIORGIO, VIRIDIANA IC DESIGNER 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 Ot E78.00 PURE HYPERCHOLESTEROLEMIA, UNSPECIFIED 01/14/2020 GIORGIO, VIRIDIANA IC DESIGNER 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 Ot F32.9 MAJOR DEPRESSIVE DISORDER, SINGLE EPISOD 01/14/2020 GIORGIO, VIRIDIANA IC DESIGNER 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 Ot F41.9 ANXIETY DISORDER, UNSPECIFIED 01/14/2020 GIORGIO, VIRIDIANA IC DESIGNER 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 Ot I25.10 ATHSCL HEART DISEASE OF [place] CORONARY 01/14/2020 GIORGIO, VIRIDIANA IC DESIGNER 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 Ot I48.91 UNSPECIFIED ATRIAL FIBRILLATION 01/14/2020 GIORGIO, VIRIDIANA IC DESIGNER 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 Ot 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 01/14/2020 GIORGIO, VIRIDIANA IC DESIGNER 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 Ot J44.9 CHRONIC OBSTRUCTIVE PULMONARY DISEASE, U 01/14/2020 GIORGIO, VIRIDIANA IC DESIGNER 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 Ot N39.0 URINARY TRACT INFECTION, SITE NOT SPECIF 01/14/2020 GIORGIO, VIRIDIANA IC DESIGNER 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 Ot Z79.01 DETENTION (CURRENT) USE OF ANTICOAGULANT 01/14/2020 GIORGIO, VIRIDIANA IC DESIGNER 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 Ot Z79.52 CORPORATE DRIVER (CURRENT) USE OF SYSTEMIC STER 01/14/2020 GIORGIO, VIRIDIANA IC DESIGNER 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 Ot Z80.0 FAMILY HISTORY OF MALIGNANT NEOPLASM OF 01/14/2020 GIORGIO, VIRIDIANA IC DESIGNER 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 Ot Z86.73 PRSNL HX OF TIA (TIA), AND CEREB INFRC W 01/14/2020 GIORGIO, VIRIDIANA IC DESIGNER 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 Ot Z87.891 PERSONAL HISTORY OF NICOTINE DEPENDENCE 01/14/2020 GIORGIO, VIRIDIANA IC DESIGNER 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 Ot Z88.2 ALLERGY STATUS TO SULFONAMIDES STATUS 01/14/2020 GIORGIO, VIRIDIANA IC DESIGNER 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 Ot Z88.8 ALLERGY STATUS TO OTH DRUG/MEDS/BIOL SUB 01/14/2020 GIORGIO, VIRIDIANA IC DESIGNER 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 Ot 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 BYPASS GRAFT 01/21/2020 GIORGIO, VIRIDIANA IC DESIGNER 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 Ot E11.9 TYPE 2 DIABETES MELLITUS WITHOUT COMPLIC 01/21/2020 GIORGIO, VIRIDIANA IC DESIGNER 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 Ot E78.00 PURE HYPERCHOLESTEROLEMIA, UNSPECIFIED 01/21/2020 GIORGIO, VIRIDIANA IC DESIGNER 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 Ot F32.9 MAJOR DEPRESSIVE DISORDER, SINGLE EPISOD 01/21/2020 GIORGIO, VIRIDIANA IC DESIGNER 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 Ot F41.9 ANXIETY DISORDER, UNSPECIFIED 01/21/2020 GIORGIO, VIRIDIANA IC DESIGNER 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 Ot I25.10 ATHSCL HEART DISEASE OF [place] CORONARY 01/21/2020 GIORGIO, VIRIDIANA IC DESIGNER 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 Ot I48.91 UNSPECIFIED ATRIAL FIBRILLATION 01/21/2020 GIORGIO, VIRIDIANA IC DESIGNER 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 Ot 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 01/21/2020 GIORGIO, VIRIDIANA IC DESIGNER 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 Ot J44.9 CHRONIC OBSTRUCTIVE PULMONARY DISEASE, U 01/21/2020 GIORGIO, VIRIDIANA IC DESIGNER 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 Ot N39.0 URINARY TRACT INFECTION, SITE NOT SPECIF 01/21/2020 GIORGIO, VIRIDIANA IC DESIGNER 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 Ot Z79.01 CORPORATE DRIVER (CURRENT) USE OF ANTICOAGULANT 01/21/2020 GIORGIO, VIRIDIANA IC DESIGNER 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 Ot Z79.52 CORPORATE DRIVER (CURRENT) USE OF SYSTEMIC STER 01/21/2020 GIORGIO, VIRIDIANA IC DESIGNER 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 Ot Z80.0 FAMILY HISTORY OF MALIGNANT NEOPLASM OF 01/21/2020 GIORGIO, VIRIDIANA IC DESIGNER 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 Ot Z86.73 PRSNL HX OF TIA (TIA), AND CEREB INFRC W 01/21/2020 GIORGIO, VIRIDIANA IC DESIGNER 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 Ot Z87.891 PERSONAL HISTORY OF NICOTINE DEPENDENCE 01/21/2020 GIORGIO, VIRIDIANA IC DESIGNER 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 Ot Z88.2 ALLERGY STATUS TO SULFONAMIDES STATUS 01/21/2020 GIORGIO, VIRIDIANA IC DESIGNER 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 Ot Z88.8 ALLERGY STATUS TO OTH DRUG/MEDS/BIOL SUB 01/21/2020 GIORGIO, VIRIDIANA IC DESIGNER 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 Ot 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 BYPASS GRAFT 01/25/2020 SATHISH ABAD IC DESIGNER 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 Ot I48.0 PAROXYSMAL ATRIAL FIBRILLATION 01/25/2020 SATHISH ABAD L IC DESIGNER 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 Ot I48.0 PAROXYSMAL ATRIAL FIBRILLATION 01/29/2020 SATHISH ABAD L IC DESIGNER 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 Ot I 10 ESSENTIAL (PRIMARY) HYPERTENSION 01/29/2020 SATHISH ABAD L IC DESIGNER 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 Ot I25.10 ATHSCL HEART DISEASE OF [place] CORONARY 01/29/2020 SATHISH ABAD L IC DESIGNER 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 Ot I48.0 PAROXYSMAL ATRIAL FIBRILLATION 01/29/2020 SATHISH ABAD L IC DESIGNER 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 Ot I65.29 OCCLUSION AND STENOSIS OF UNSPECIFIED CA 01/29/2020 SATHISH ABAD L IC DESIGNER 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 Ot I73.9 PERIPHERAL VASCULAR DISEASE, UNSPECIFIED 02/16/2020 SATHISH ABAD L IC DESIGNER 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 Ot I 10 ESSENTIAL (PRIMARY) HYPERTENSION 02/16/2020 SATHISH ABAD IC DESIGNER 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 Ot I25.10 ATHSCL HEART DISEASE OF [place] CORONARY 02/16/2020 SATHISH ABADP Ot I48.0 PAROXYSMAL ATRIAL FIBRILLATION 02/16/2020 SATHISH ABADP Ot I65.29 OCCLUSION AND STENOSIS OF UNSPECIFIED CA 02/16/2020 SATHISH ABAD IC DESIGNER 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 Ot I73.9 PERIPHERAL VASCULAR DISEASE, UNSPECIFIED Procedures Code Description [place] [address] GEOVANI V PSYTX 45/50 MIN 10/22/2012 99311 ROUT INE VENIPUNCTURE 10/24/2012 61297 BMP 10/24/2012 61402 MAGNESIUM 10/24/2012 [id number] GF R CALC (RESULT ONLY) 10/24/2012 2000F BLOO D PRESSURE CHECK 11/14/2012 02677 ROUT INE VENIPUNCTURE 01/15/2013 71544 BMP 01/15/2013 [id number] GF R CALC (RESULT ONLY) 01/15/2013 18031 LIPI D PANEL 01/15/2013 55088 ROUT INE VENIPUNCTURE 05/06/2013 99164 A1C (IN-HOUSE) 05/06/2013 09112 CMP 05/06/2013 51115 MAGNESIUM 05/06/2013 1888386 GF R CALC (RESULT ONLY) 05/06/2013 09911 CPK 05/06/2013 26748 PSYT X PT&/FAMILY 45 MINUTES 05/14/2013 06771 OXIMETRY 07/01/2013 J7613 ALBU TEROL UNIT DOSE FORM INHALED 07/01/2013 J2930 SOLU MEDROL INJ 07/02/2013 36016 THER APUTIC INJ SQ/IM 07/02/2013 32130 OXIMETRY 07/02/2013 2000F BLOO D PRESSURE CHECK 07/02/2013 G0008 FLU ADMINISTRATION (MEDICARE ONLY) 08/06/2013 14354 OXIMETRY 08/13/2013 40683 ROUT INE VENIPUNCTURE 08/31/2013 17445 GLUCOSE 08/31/2013 15422 LIPI D PANEL 08/31/2013 15415 A1C (IN-HOUSE) 09/08/2013 67963 XRAY CHEST 2 VIEW 11/12/2013 66645 ROSENDA URE BLOOD OXYGEN LEVEL 11/12/2013 42895 THER APUTIC INJ SQ/IM 12/11/2013 J2930 SOLU MEDROL INJ 12/11/2013 54480 A1C (IN-HOUSE) 12/11/2013 86052 ROUT INE VENIPUNCTURE 12/15/2013 10418 EKG, TRACING (IN-HOUSE) 12/15/2013 86448 XRAY CHEST 2 VIEW 12/15/2013 60428 ECHO 2D 12/15/2013 97089 OXIMETRY 12/15/2013 90960 CBC 12/15/2013 7592029 GF R CALC (RESULT ONLY) 12/15/2013 85878 CMP 12/15/2013 67941 MAGNESIUM 12/15/2013 93892 BNP 12/16/2013 11974 ROUT INE VENIPUNCTURE 01/13/2014 00062 OXIMETRY 01/13/2014 3320410 GF R CALC (RESULT ONLY) 01/14/2014 43699 CMP 01/14/2014 66415 MAGNESIUM 01/14/2014 82977 OXIMETRY 01/28/2014 31285 ROUT INE VENIPUNCTURE 03/24/2014 17567 LIPI D PANEL 03/24/2014 87645 ROUT INE VENIPUNCTURE 07/02/2014 3786178 GF R CALC (RESULT ONLY) 07/02/2014 04193 CMP 07/02/2014 11392 LIPI D PANEL 07/02/2014 61723 [employer] 08/17/2014 36194 US S OFT TISSUE (SPECIFY LOCATION) 09/15/2014 CARDIOLOG CHELLE GOETZ 09/15/2014 G0008 FLU ADMINISTRATION (MEDICARE ONLY) 09/15/2014 PULMONARY WILL CASPER 09/15/2014 13270 US A BDOMINAL ULTRASOUND, COMPLETE 11/26/2014 01847 LEFT HEART CATH 01/25/2015 21112 US C AROTID DOPPLER 01/25/2015 06039 OXIMETRY 01/25/[address] A NGIO, EXTREMITY, LOWER 02/08/2015 [id number] EX CISION OF STOMACH, PYLORUS, ENDO, DIAG 04/17/2019 [id number] IN SPECTION OF LOWER INTESTINAL TRACT, EN 04/20/2019 Results Test Result Range Capillary blood glucose measurement by g lucometer (mass/volume) - 11/27/16 07:15 Capillary blood glucose measurement by glucometer (mas s/volume) 117 mg/dL 70-110 Methicillin resistant Staphylococcus aur eus (MRSA) screening culture - 11/27/16 07:15 MRSA SCREEN RESULT MRSA ISOLATED NRG Capillary blood glucose measurement by g lucometer (mass/volume) - 11/27/16 10:28 Capillary blood glucose measurement by glucometer (mas s/volume) 127 mg/dL 70-110 Methicillin resistant Staphylococcus aur eus (MRSA) screening culture - 02/12/17 06:10 MRSA SCREEN RESULT MRSA ISOLATED NRG Automated blood complete blood count (he mogram) panel - 10/15/17 08:36 Blood leukocytes automated count (number/volume) 12.5 10*3/uL 4.3-11.0 Blood erythrocytes automated count (number/volume) 4.47 10*6/uL 4.35-5.85 Venous blood hemoglobin measurement (mass/volume) 13.3 g/dL 11.5-16.0 Blood hematocrit (volume fraction) 40 % 35-52 Automated erythrocyte mean corpuscular volume 89 [ foz_us] 80-99 Automated erythrocyte mean corpuscular h emoglobin (mass per erythrocyte) 30 pg 25-34 Automated erythrocyte mean corpuscular h emoglobin concentration measurement (mass/volume) 33 g/dL 32-36 Automated erythrocyte distribution width ratio 14. 2 % 10.0- 14.5 Automated blood platelet count (count/volume) 250 10*3/uL 130-400 Automated blood platelet mean volume measurement 10.0 [foz_us] 7.4-10.4 PT panel in platelet poor plasma by coag ulation assay - 10/15/17 08:36 Prothrombin time (PT) in platelet poor plasma by coagu lation assay 14.6 s 12.2-14.7 INR in platelet poor plasma or blood by coagulation as say 1.1 0.8-1.4 Activated partial thromboplastin time (a PTT) in platelet poor plasma bycoagulation assay - 10/15/17 08:36 Activated partial thromboplastin time (a PTT) in platelet poor plasma bycoagulation assay 32 s 24-35 Comprehensive metabolic panel - 10/15/17 08:36 Serum or plasma sodium measurement (moles/volume) 139 mmol/L 135-145 Serum or plasma potassium measurement (moles/volume) 4.2 mmol/L 3.6-5.0 Serum or plasma chloride measurement (moles/volume) 105 mmol/L 98-107 Carbon dioxide 24 mmol/L 21-32 Serum or plasma anion gap determination (moles/volume) 10 mmol/L 5-14 Serum or plasma urea nitrogen measurement (mass/volume ) 19 mg/dL 7-18 Serum or plasma creatinine measurement (mass/volume) 0.82 mg/dL 0.60-1.30 Serum or plasma urea nitrogen/creatinine mass ratio 23 NRG Serum or plasma creatinine measurement w ith calculation of estimated glomerular filtration rate > NRG Serum or plasma glucose measurement (mass/volume) 109 mg/dL 70-105 Serum or plasma calcium measurement (mass/volume) 9.4 mg/dL 8.5-10.1 Serum or plasma total bilirubin measurement (mass/volu me) 0.8 mg/dL 0.1-1.0 Serum or plasma alkaline phosphatase woody surement (enzymatic activity/volume) 84 U/L 40-136 Serum or plasma aspartate aminotransfera se measurement (enzymatic activity/volume) 16 U/L 5-34 Serum [...] Serum or plasma cholesterol in HDL measurement (mass/v olume) 45 mg/dL 40-60 Cholesterol in LDL [mass/volume] in serum or plasma by direct assay 73 mg/dL 1-129 Serum or plasma cholesterol in VLDL measurement (mass/ volume) 12 mg/dL 5-40 Methicillin resistant Staphylococcus aur eus (MRSA) screening culture - 10/15/17 08:36 Methicillin resistant Staphylococcus aureus (MRSA) scr eening culture NEG NRG Methicillin resistant Staphylococcus aur eus (MRSA) screening culture - 11/26/17 07:30 MRSA SCREEN RESULT MRSA ISOLATED NRG Capillary blood glucose measurement by g lucometer (mass/volume) - 11/26/17 07:34 Capillary blood glucose measurement by glucometer (mas s/volume) 133 mg/dL 70-110 Complete blood count (CBC) with automate d white blood cell (WBC) differential - 11/26/17 13:04 Blood leukocytes automated count (number/volume) 10.7 10*3/uL 4.3-11.0 Blood erythrocytes automated count (number/volume) 4.48 10*6/uL 4.35-5.85 Venous blood hemoglobin measurement (mass/volume) 13.4 g/dL 11.5-16.0 Blood hematocrit (volume fraction) 40 % 35-52 Automated erythrocyte mean corpuscular volume 90 [ foz_us] 80-99 Automated erythrocyte mean corpuscular h emoglobin (mass per erythrocyte) 30 pg 25-34 Automated erythrocyte mean corpuscular h emoglobin concentration measurement (mass/volume) 33 g/dL 32-36 Automated erythrocyte distribution width ratio 14. 3 % 10.0- 14.5 Automated blood platelet count [...] 10*3 1.0-4.0 Blood monocytes automated count (number/volume) 0. 6 10*3 0.0-1.0 Automated eosinophil count 0.1 10*3/uL 0 .0-0.3 Automated blood basophil count (count/volume) 0.0 10*3/uL 0.0-0.1 Whole blood basic metabolic panel - 08/05 13:04 Serum or plasma sodium measurement (moles/volume) 137 mmol/L 135-145 Serum or plasma potassium measurement (moles/volume) 4.1 mmol/L 3.6-5.0 Serum or plasma chloride measurement (moles/volume) 104 mmol/L 98-107 Carbon dioxide 24 mmol/L 21-32 Serum or plasma anion gap determination (moles/volume) 9 mmol/L 5-14 Serum or plasma urea nitrogen measurement (mass/volume ) 11 mg/dL 7-18 Serum or plasma creatinine measurement (mass/volume) 0.74 mg/dL 0.60-1.30 Serum or plasma urea nitrogen/creatinine mass ratio 15 NRG Serum or plasma creatinine measurement w ith calculation of estimated glomerular filtration rate > NRG Serum or plasma glucose measurement (mass/volume) 118 mg/dL 70-105 Serum or plasma calcium measurement (mass/volume) 9.0 mg/dL 8.5-10.1 Influenza virus A and B antigen detectio n - 11/26/17 17:19 FLU RESULT NEGATIVE FOR INFLUENZA A AND B ANTIGENS BY IA NRG Complete blood count (CBC) with automate d white blood cell (WBC) differential - 11/26/17 17:32 Blood leukocytes automated count (number/volume) 15.7 10*3/uL 4.3-11.0 Blood erythrocytes automated count (number/volume) 4.40 10*6/uL 4.35-5.85 Venous blood hemoglobin measurement (mass/volume) 13.5 g/dL 11.5-16.0 Blood hematocrit (volume fraction) 40 % 35-52 Automated erythrocyte mean corpuscular volume 90 [ foz_us] 80-99 Automated erythrocyte mean corpuscular h emoglobin (mass per erythrocyte) 31 pg 25-34 Automated erythrocyte mean corpuscular h emoglobin concentration measurement (mass/volume) 34 g/dL 32-36 Automated erythrocyte distribution width ratio 14. 3 % 10.0- 14.5 Automated blood platelet count [...] 10*3 1.0-4.0 Blood monocytes automated count (number/volume) 1. 1 10*3 0.0-1.0 Automated eosinophil count 0.0 10*3/uL 0 .0-0.3 Automated blood basophil count (count/volume) 0.0 10*3/uL 0.0-0.1 PT panel in platelet poor plasma by [facility] [place] ulation assay - 11/26/17 17:32 Prothrombin time (PT) in platelet poor plasma by coagu lation assay 14.5 s 12.2-14.7 INR in platelet poor plasma or blood by coagulation as say 1.1 0.8-1.4 Activated partial thromboplastin time (a PTT) in platelet poor plasma bycoagulation assay - 11/26/17 17:32 Activated partial thromboplastin time (a PTT) in platelet poor plasma bycoagulation assay 30 s 24-35 Blood lactic acid measurement (moles/vol ume) - 11/26/17 17:32 Blood lactic acid measurement [...] 5-14 Serum or plasma urea nitrogen measurement (mass/volume ) 10 mg/dL 7-18 Serum or plasma creatinine measurement (mass/volume) 0.78 mg/dL 0.60-1.30 Serum or plasma urea nitrogen/creatinine mass ratio 13 NRG Serum or plasma creatinine measurement w ith calculation of estimated glomerular filtration rate > NRG Serum or plasma glucose measurement (mass/volume) 108 mg/dL 70-105 Serum or plasma calcium measurement (mass/volume) 9.0 mg/dL 8.5-10.1 Serum or plasma total bilirubin measurement (mass/volu me) 0.7 mg/dL 0.1-1.0 Serum or plasma alkaline phosphatase woody surement (enzymatic activity/volume) 68 U/L 40-136 Serum or plasma aspartate aminotransfera se measurement (enzymatic activity/volume) 16 U/L 5-34 Serum or plasma alanine aminotransferase measurement (enzymatic activity/volume) 17 U/L 0-55 Serum or plasma protein measurement (mass/volume) 6.6 g/dL 6.4-8.2 Serum or plasma albumin measurement (mass/volume) 3.7 g/dL 3.2-4.5 Serum or plasma troponin i.cardiac measu rement (mass/volume) - 11/26/17 17:32 Serum or plasma troponin i.cardiac measurement (mass/v olume) < ng/mL <0.30 Serum or plasma C reactive protein measu rement (mass/volume) - 11/26/17 17:32 Serum or plasma C reactive protein measurement (mass/v olume) 0.61 mg/dL 0.00-0.50 Blood manual differential performed dete ction - 11/26/17 17:32 Blood monocytes/100 leukocytes 5 [...] NG NRG Complete urinalysis with reflex to cultu re - 11/26/17 17:50 Urine color determination GABRIELA NRG Urine clarity determination SLIGHTLY CLOUDY NRG Urine pH measurement by test strip 8 5-9 Specific gravity of urine by test strip 1.010 1.016-1.022 Urine protein assay by test strip, semi-quantitative 2+ NEGATIVE Urine glucose detection by automated test strip NE GATIVE NEGATIVE Erythrocytes detection in urine sediment by light micr oscopy 5+ NEGATIVE Urine ketones detection by automated test strip NE GATIVE NEGATIVE Urine nitrite detection by test strip NEGATIVE NEGATIVE Urine total bilirubin detection by test strip NEGA TIVE NEGATIVE Urine urobilinogen measurement by automated test strip (mass/volume) NORMAL NORMAL Urine leukocyte esterase detection by dipstick 3+ NEGATIVE Automated urine sediment erythrocyte cou nt by microscopy (number/high power field) > [HPF] NRG Automated urine sediment leukocyte count by microscopy (number/high power field) [HPF] NRG Bacteria detection in urine sediment by light microsco py TRACE NRG Crystals detection in urine sediment by light microsco py NONE NRG Casts detection in urine sediment by light microscopy NONE NRG Mucus detection in urine sediment by light microscopy NEGATIVE NRG Complete urinalysis with reflex to culture YES NRG Bacterial urine culture - 11/26/17 17:50 Bacterial urine culture NG NRG Bacterial blood culture - 11/26/17 18:00 Bacterial blood culture NG NRG Capillary blood glucose measurement by g lucometer (mass/volume) - 11/27/17 02:51 Capillary blood glucose measurement by glucometer (mas s/volume) 121 mg/dL 70-110 Complete blood count (CBC) with automate d white blood cell (WBC) differential - 11/27/17 06:36 Blood leukocytes automated count (number/volume) 20.1 10*3/uL 4.3-11.0 Blood erythrocytes automated count (number/volume) 4.08 10*6/uL 4.35-5.85 Venous blood hemoglobin measurement (mass/volume) 12.3 g/dL 11.5-16.0 Blood hematocrit (volume fraction) 37 % 35-52 Automated erythrocyte mean corpuscular volume 90 [ foz_us] 80-99 Automated erythrocyte mean corpuscular h emoglobin (mass per erythrocyte) 30 pg 25-34 Automated erythrocyte mean corpuscular h emoglobin concentration measurement (mass/volume) 34 g/dL 32-36 Automated erythrocyte distribution width ratio 14. 3 % 10.0- 14.5 Automated blood platelet count [...] 10*3 1.0-4.0 Blood monocytes automated count (number/volume) 0. 9 10*3 0.0-1.0 Automated eosinophil count 0.0 10*3/uL 0 .0-0.3 Automated blood basophil count (count/volume) 0.0 10*3/uL 0.0-0.1 Comprehensive metabolic panel - 11/27/17 06:36 Serum or plasma sodium measurement (moles/volume) 138 mmol/L 135-145 Serum or plasma potassium measurement (moles/volume) 3.6 mmol/L 3.6-5.0 Serum or plasma chloride measurement (moles/volume) 107 mmol/L 98-107 Carbon dioxide 20 mmol/L 21-32 Serum or plasma anion gap determination (moles/volume) 11 mmol/L 5-14 Serum or plasma urea nitrogen measurement (mass/volume ) 8 mg/dL 7-18 Serum or plasma creatinine measurement (mass/volume) 0.72 mg/dL 0.60-1.30 Serum or plasma urea nitrogen/creatinine mass ratio 11 NRG Serum or plasma creatinine measurement w ith calculation of estimated glomerular filtration rate > NRG Serum or plasma glucose measurement (mass/volume) 126 mg/dL 70-105 Serum or plasma calcium measurement (mass/volume) 8.7 mg/dL 8.5-10.1 Serum or plasma total bilirubin measurement (mass/volu me) 1.0 mg/dL 0.1-1.0 Serum or plasma alkaline phosphatase woody surement (enzymatic activity/volume) 69 U/L 40-136 Serum or plasma aspartate aminotransfera se measurement (enzymatic activity/volume) 17 U/L 5-34 Serum or plasma alanine aminotransferase measurement (enzymatic activity/volume) 16 U/L 0-55 Serum or plasma protein measurement (mass/volume) 6.3 g/dL 6.4-8.2 Serum or plasma albumin measurement (mass/volume) 3.3 g/dL 3.2-4.5 Blood manual differential performed dete ction - 11/27/17 06:36 Blood monocytes/100 leukocytes 2 % NRG Manual blood segmented neutrophils/100 leukocytes 75 % NRG Blood band neutrophils/100 leukocytes 18 % NRG Manual blood lymphocytes/100 leukocytes 5 % NRG Manual eosinophils/100 leukocytes in nose 0 % NRG Manual blood basophils/100 leukocytes 0 % NRG Blood erythrocyte morphology finding identification NORMAL NRG Capillary blood glucose measurement by g lucometer (mass/volume) - 11/27/17 11:15 Capillary blood glucose measurement by glucometer (mas s/volume) 141 mg/dL 70-110 Influenza virus A and B antigen detectio n - 12/14/17 20:39 FLU RESULT NEGATIVE FOR INFLUENZA A AND B ANTIGENS BY IA NRG Complete blood count (CBC) with automate d white blood cell (WBC) differential - 12/14/17 20:40 Blood leukocytes automated count (number/volume) 11.0 10*3/uL 4.3-11.0 Blood erythrocytes automated count (number/volume) 4.47 10*6/uL 4.35-5.85 Venous blood hemoglobin measurement (mass/volume) 13.2 g/dL 11.5-16.0 Blood hematocrit (volume fraction) 39 % 35-52 Automated erythrocyte mean corpuscular volume 87 [ foz_us] 80-99 Automated erythrocyte mean corpuscular h emoglobin (mass per erythrocyte) 30 pg 25-34 Automated erythrocyte mean corpuscular h emoglobin concentration measurement (mass/volume) 34 g/dL 32-36 Automated erythrocyte distribution width ratio 14. 1 % 10.0- 14.5 Automated blood platelet count [...] 10*3 1.0-4.0 Blood monocytes automated count (number/volume) 1. 2 10*3 0.0-1.0 Automated eosinophil count 0.2 10*3/uL 0 .0-0.3 Automated blood basophil count (count/volume) 0.0 10*3/uL 0.0-0.1 Blood lactic acid measurement (moles/vol ume) - 12/14/17 20:40 Blood lactic acid measurement [...] 5-14 Serum or plasma urea nitrogen measurement (mass/volume ) 15 mg/dL 7-18 Serum or plasma creatinine measurement (mass/volume) 0.83 mg/dL 0.60-1.30 Serum or plasma urea nitrogen/creatinine mass ratio 18 NRG Serum or plasma creatinine measurement w ith calculation of estimated glomerular filtration rate > NRG Serum or plasma glucose measurement (mass/volume) 132 mg/dL 70-105 Serum or plasma calcium measurement (mass/volume) 9.7 mg/dL 8.5-10.1 Serum or plasma total bilirubin measurement (mass/volu me) 0.6 mg/dL 0.1-1.0 Serum or plasma alkaline phosphatase woody surement (enzymatic activity/volume) 86 U/L 40-136 Serum or plasma aspartate aminotransfera se measurement (enzymatic activity/volume) 25 U/L 5-34 Serum or plasma alanine aminotransferase measurement (enzymatic activity/volume) 24 U/L 0-55 Serum or plasma protein measurement (mass/volume) 7.2 g/dL 6.4-8.2 Serum or plasma albumin measurement (mass/volume) 3.5 g/dL 3.2-4.5 Magnesium - 12/14/17 20:40 Magnesium 1.6 mg/dL 1.8-2.4 Serum or plasma C reactive protein measu rement (mass/volume) - 12/14/17 20:40 Serum or plasma C reactive protein measurement (mass/v olume) 2.06 mg/dL 0.00-0.50 Bacterial blood culture - 12/14/17 20:40 Bacterial blood culture NG NRG Complete urinalysis with reflex to cultu re - 12/14/17 20:50 Urine color determination YELLOW NRG Urine clarity determination CLEAR NR G Urine pH measurement by test strip 5 5-9 Specific gravity of urine by test strip 1.015 1.016-1.022 Urine protein assay by test strip, semi-quantitative 2+ NEGATIVE Urine glucose detection by automated test strip NE GATIVE NEGATIVE Erythrocytes detection in urine sediment by light micr oscopy 2+ NEGATIVE Urine ketones detection by automated test strip NE GATIVE NEGATIVE Urine nitrite detection by test strip NEGATIVE NEGATIVE Urine total bilirubin detection by test strip NEGA TIVE NEGATIVE Urine urobilinogen measurement by automated test strip (mass/volume) NORMAL NORMAL Urine leukocyte esterase detection by dipstick 3+ NEGATIVE Automated urine sediment erythrocyte cou nt by microscopy (number/high power field) [HPF] NRG Automated urine sediment leukocyte count by microscopy (number/high power field) [HPF] NRG Bacteria detection in urine sediment by light microsco py FEW NRG Squamous epithelial cells detection in u rine sediment by light microscopy 10-25 NRG Crystals detection in urine sediment by light microsco py NONE NRG Casts detection in urine sediment by light microscopy NONE NRG Mucus detection in urine sediment by light microscopy SMALL NRG Complete urinalysis with reflex to culture YES NRG Bacterial urine culture - 12/14/17 20:50 Bacterial urine culture [id number] NRG COLONY COUNT <10,000 NRG MRSA AGAR MRSA isolated (Screening test for MRSA is positive) NRG FTX;REPORTABLE SENSITIVITY REPORTED 12/16 16:30 NRG CALL POSITIVES (F1 HELP) CALLED TO TUCKER/LESLY SE AT 1453, 12-16-17/KD NRG Bacterial susceptibility panel - 8 20:50 Oxacillin susceptibility test by minimum inhibitory co ncentration >= NRG Gentamicin susceptibility test by minimum inhibitory c oncentration <= NRG Trimethoprim/sulfamethoxazole susceptibi lity test by minimum inhibitoryconcentration S NRG Vancomycin susceptibility test by minimum inhibitory c oncentration <= NRG Levofloxacin susceptibility test by minimum inhibitory concentration 4 NRG Rifampin susceptibility test by minimum inhibitory con centration <= NRG Tetracycline susceptibility test by minimum inhibitory concentration <= NRG Ciprofloxacin susceptibility test by minimum inhibitor y concentration R NRG Bacterial blood culture - 12/14/17 21:09 Bacterial blood culture NG NRG Automated blood complete blood count (he mogram) panel - 12/23/17 10:46 Blood leukocytes automated count (number/volume) 10.3 10*3/uL 4.3-11.0 Blood erythrocytes automated count (number/volume) 4.15 10*6/uL 4.35-5.85 Venous blood hemoglobin measurement (mass/volume) 12.2 g/dL 11.5-16.0 Blood hematocrit (volume fraction) 38 % 35-52 Automated erythrocyte mean corpuscular volume 90 [ foz_us] 80-99 Automated erythrocyte mean corpuscular h emoglobin (mass per erythrocyte) 29 pg 25-34 Automated erythrocyte mean corpuscular h emoglobin concentration measurement (mass/volume) 33 g/dL 32-36 Automated erythrocyte distribution width ratio 14. 4 % 10.0- 14.5 Automated blood platelet count [...] 5-14 Serum or plasma urea nitrogen measurement (mass/volume ) 15 mg/dL 7-18 Serum or plasma creatinine measurement (mass/volume) 0.78 mg/dL 0.60-1.30 Serum or plasma urea nitrogen/creatinine mass ratio 19 NRG Serum or plasma creatinine measurement w ith calculation of estimated glomerular filtration rate > NRG Serum or plasma glucose measurement (mass/volume) 184 mg/dL 70-105 Serum or plasma calcium measurement (mass/volume) 9.2 mg/dL 8.5-10.1 Serum or plasma total bilirubin measurement (mass/volu me) 0.4 mg/dL 0.1-1.0 Serum or plasma alkaline phosphatase woody surement (enzymatic activity/volume) 78 U/L 40-136 Serum or plasma aspartate aminotransfera se measurement (enzymatic activity/volume) 19 U/L 5-34 Serum or plasma alanine aminotransferase measurement (enzymatic activity/volume) 17 U/L 0-55 Serum or plasma protein measurement (mass/volume) 7.1 g/dL 6.4-8.2 Serum or plasma albumin measurement (mass/volume) 3.4 g/dL 3.2-4.5 Complete urinalysis with reflex to cultu re - 02/16/18 09:30 Urine color determination YELLOW NRG Urine clarity determination CLEAR NR G Urine pH measurement by test strip 6.5 5-9 Specific gravity of urine by test strip 1.015 1.016-1.022 Urine protein assay by test strip, semi-quantitative 1+ NEGATIVE Urine glucose detection by automated test strip NE GATIVE NEGATIVE Erythrocytes detection in urine sediment by light micr oscopy 1+ NEGATIVE Urine ketones detection by automated test strip NE GATIVE NEGATIVE Urine nitrite detection by test strip NEGATIVE NEGATIVE Urine total bilirubin detection by test strip NEGA TIVE NEGATIVE Urine urobilinogen measurement by automated test strip (mass/volume) NORMAL NORMAL Urine leukocyte esterase detection by dipstick 3+ NEGATIVE Automated urine sediment erythrocyte cou nt by microscopy (number/high power field) NONE NRG Automated urine sediment leukocyte count by microscopy (number/high power field) [HPF] NRG Bacteria detection in urine sediment by light microsco py FEW NRG Squamous epithelial cells detection in u rine sediment by light microscopy RARE NRG Crystals detection in urine sediment by light microsco py NONE NRG Casts detection in urine sediment by light microscopy PRESENT NRG Mucus detection in urine sediment by light microscopy NEGATIVE NRG Complete urinalysis with reflex to culture YES NRG Amorphous sediment detection in urine sediment by ligh t microscopy RARE VI URATES NRG Hyaline casts detection in urine sediment by light paola roscopy RARE NRG Granular casts detection in urine sediment by light mi croscopy 2-5 NRG Bacterial urine culture - 02/16/18 09:30 Bacterial urine culture [id number] NRG COLONY COUNT 10,000/ML - 100,000/ML NRG FTX;REPORTABLE SENSITIVITY REPORTED 02/18 16:30 NRG Bacterial susceptibility panel - 8 09:30 Gentamicin susceptibility test by minimum inhibitory c oncentration R NRG Vancomycin susceptibility test by minimum inhibitory c oncentration 1 NRG Levofloxacin susceptibility test by minimum inhibitory concentration >= NRG Tetracycline susceptibility test by minimum inhibitory concentration >= NRG Ampicillin susceptibility test by minimum inhibitory c oncentration <= NRG Ciprofloxacin susceptibility test by minimum inhibitor y concentration R NRG Nitrofurantoin susceptibility test by mi nimum inhibitory concentration <= NRG Linezolid susceptibility test by minimum inhibitory co ncentration 2 NRG Bacterial susceptibility panel - 8 09:30 Oxacillin susceptibility test by minimum inhibitory co ncentration >= NRG Gentamicin susceptibility test by minimum inhibitory c oncentration <= NRG Trimethoprim/sulfamethoxazole susceptibi lity test by minimum inhibitoryconcentration S NRG Vancomycin susceptibility test by minimum inhibitory c oncentration <= NRG Levofloxacin susceptibility test by minimum inhibitory concentration 4 NRG Rifampin susceptibility test by minimum inhibitory con centration <= NRG Tetracycline susceptibility test by minimum inhibitory concentration <= NRG Ciprofloxacin susceptibility test by minimum inhibitor y concentration R NRG Automated blood complete blood count (he mogram) panel - 04/01/18 08:36 Blood leukocytes automated count (number/volume) 9.1 10*3/uL 4.3-11.0 Blood erythrocytes automated count (number/volume) 4.36 10*6/uL 4.35-5.85 Venous blood hemoglobin measurement (mass/volume) 13.0 g/dL 11.5-16.0 Blood hematocrit (volume fraction) 40 % 35-52 Automated erythrocyte mean corpuscular volume 91 [ foz_us] 80-99 Automated erythrocyte mean corpuscular h emoglobin (mass per erythrocyte) 30 pg 25-34 Automated erythrocyte mean corpuscular h emoglobin concentration measurement (mass/volume) 33 g/dL 32-36 Automated erythrocyte distribution width ratio 16. 1 % 10.0- 14.5 Automated blood platelet count (count/volume) 259 10*3/uL 130-400 Automated blood platelet mean volume measurement 10.0 [foz_us] 7.4-10.4 PT panel in platelet poor plasma by coag ulation assay - 04/01/18 08:36 Prothrombin time (PT) in platelet poor plasma by coagu lation assay 14.5 s 12.2-14.7 INR in platelet poor plasma or blood by coagulation as say 1.1 0.8-1.4 Activated partial thromboplastin time (a PTT) in platelet poor plasma bycoagulation assay - 04/01/18 08:36 Activated partial thromboplastin time (a PTT) in platelet poor plasma bycoagulation assay 33 s 24-35 Comprehensive metabolic panel - 04/01/18 08:36 Serum or plasma sodium measurement (moles/volume) 141 mmol/L 135-145 Serum or plasma potassium measurement (moles/volume) 4.1 mmol/L 3.6-5.0 Serum or plasma chloride measurement (moles/volume) 105 mmol/L 98-107 Carbon dioxide 25 mmol/L 21-32 Serum or plasma anion gap determination (moles/volume) 11 mmol/L 5-14 Serum or plasma urea nitrogen measurement (mass/volume ) 22 mg/dL 7-18 Serum or plasma creatinine measurement (mass/volume) 0.81 mg/dL 0.60-1.30 Serum or plasma urea nitrogen/creatinine mass ratio 27 NRG Serum or plasma creatinine measurement w ith calculation of estimated glomerular filtration rate > NRG Serum or plasma glucose measurement (mass/volume) 101 mg/dL 70-105 Serum or plasma calcium measurement (mass/volume) 9.7 mg/dL 8.5-10.1 Serum or plasma total bilirubin measurement (mass/volu me) 0.5 mg/dL 0.1-1.0 Serum or plasma alkaline phosphatase woody surement (enzymatic activity/volume) 71 U/L 40-136 Serum or plasma aspartate aminotransfera se measurement (enzymatic activity/volume) 17 U/L 5-34 Serum [...] Serum or plasma cholesterol in HDL measurement (mass/v olume) 68 mg/dL 40-60 Cholesterol in LDL [mass/volume] in serum or plasma by direct assay 90 mg/dL 1-129 Serum or plasma cholesterol in VLDL measurement (mass/ volume) 14 mg/dL 5-40 Methicillin resistant Staphylococcus aur eus (MRSA) screening culture - 04/01/18 08:36 Methicillin resistant Staphylococcus aureus (MRSA) scr eening culture NEG NRG Complete urinalysis with reflex to cultu re - 05/05/18 05:39 Urine color determination YELLOW NRG Urine clarity determination CLEAR NR G Urine pH measurement by test strip 6.5 5-9 Specific gravity of urine by test strip 1.015 1.016-1.022 Urine protein assay by test strip, semi-quantitative 2+ NEGATIVE Urine glucose detection by automated test strip NE GATIVE NEGATIVE Erythrocytes detection in urine sediment by light micr oscopy 2+ NEGATIVE Urine ketones detection by automated test strip NE GATIVE NEGATIVE Urine nitrite detection by test strip POSITIVE NEGATIVE Urine total bilirubin detection by test strip NEGA TIVE NEGATIVE Urine urobilinogen measurement by automated test strip (mass/volume) NORMAL NORMAL Urine leukocyte esterase detection by dipstick 3+ NEGATIVE Automated urine sediment erythrocyte cou nt by microscopy (number/high power field) [HPF] NRG Automated urine sediment leukocyte count by microscopy (number/high power field) [HPF] NRG Bacteria detection in urine sediment by light microsco py MODERATE NRG Squamous epithelial cells detection in u rine sediment by light microscopy 2-5 NRG Crystals detection in urine sediment by light microsco py NONE NRG Casts detection in urine sediment by light microscopy NONE NRG Mucus detection in urine sediment by light microscopy MODERATE NRG Complete urinalysis with reflex to culture YES NRG Bacterial urine culture - 05/05/18 05:39 Bacterial urine culture SEE COMMEN NRG COLONY COUNT . NRG Complete blood count (CBC) with automate d white blood cell (WBC) differential - 05/05/18 05:41 Blood leukocytes automated count (number/volume) 10.8 10*3/uL 4.3-11.0 Blood erythrocytes automated count (number/volume) 3.95 10*6/uL 4.35-5.85 Venous blood hemoglobin measurement (mass/volume) 12.2 g/dL 11.5-16.0 Blood hematocrit (volume fraction) 36 % 35-52 Automated erythrocyte mean corpuscular volume 91 [ foz_us] 80-99 Automated erythrocyte mean corpuscular h emoglobin (mass per erythrocyte) 31 pg 25-34 Automated erythrocyte mean corpuscular h emoglobin concentration measurement (mass/volume) 34 g/dL 32-36 Automated erythrocyte distribution width ratio 15. 4 % 10.0- 14.5 Automated blood platelet count [...] 10*3 1.0-4.0 Blood monocytes automated count (number/volume) 1. 1 10*3 0.0-1.0 Automated eosinophil count 0.2 10*3/uL 0 .0-0.3 Automated blood basophil count (count/volume) 0.0 10*3/uL 0.0-0.1 Comprehensive metabolic panel - 05/05/18 05:41 Serum or plasma sodium measurement (moles/volume) 141 mmol/L 135-145 Serum or plasma potassium measurement (moles/volume) 4.8 mmol/L 3.6-5.0 Serum or plasma chloride measurement (moles/volume) 106 mmol/L 98-107 Carbon dioxide 23 mmol/L 21-32 Serum or plasma anion gap determination (moles/volume) 12 mmol/L 5-14 Serum or plasma urea nitrogen measurement (mass/volume ) 26 mg/dL 7-18 Serum or plasma creatinine measurement (mass/volume) 0.75 mg/dL 0.60-1.30 Serum or plasma urea nitrogen/creatinine mass ratio 35 NRG Serum or plasma creatinine measurement w ith calculation of estimated glomerular filtration rate > NRG Serum or plasma glucose measurement (mass/volume) 107 mg/dL 70-105 Serum or plasma calcium measurement (mass/volume) 9.5 mg/dL 8.5-10.1 Serum or plasma total bilirubin measurement (mass/volu me) 0.4 mg/dL 0.1-1.0 Serum or plasma alkaline phosphatase woody surement (enzymatic activity/volume) 66 U/L 40-136 Serum or plasma aspartate aminotransfera se measurement (enzymatic activity/volume) 17 U/L 5-34 Serum or plasma alanine aminotransferase measurement (enzymatic activity/volume) 26 U/L 0-55 Serum or plasma protein measurement (mass/volume) 7.1 g/dL 6.4-8.2 Serum or plasma albumin measurement (mass/volume) 3.9 g/dL 3.2-4.5 Blood lactic acid measurement (moles/vol ume) - 05/05/18 05:50 Blood lactic acid measurement (moles/volume) 1.00 mmol/L 0.50-2.00 Bacterial blood culture - 05/05/18 05:50 Bacterial blood culture NG NRG Bacterial blood culture - 05/05/18 06:20 Bacterial blood culture NG NRG Complete blood count (CBC) with automate d white blood cell (WBC) differential - 09/04/18 11:20 Blood leukocytes automated count (number/volume) 9.3 10*3/uL 4.3-11.0 Blood erythrocytes automated count (number/volume) 4.62 10*6/uL 4.35-5.85 Venous blood hemoglobin measurement (mass/volume) 13.5 g/dL 11.5-16.0 Blood hematocrit (volume fraction) 41 % 35-52 Automated erythrocyte mean corpuscular volume 90 [ foz_us] 80-99 Automated erythrocyte mean corpuscular h emoglobin (mass per erythrocyte) 29 pg 25-34 Automated erythrocyte mean corpuscular h emoglobin concentration measurement (mass/volume) 33 g/dL 32-36 Automated erythrocyte distribution width ratio 15. 4 % 10.0- 14.5 Automated blood platelet count [...] 10*3 1.0-4.0 Blood monocytes automated count (number/volume) 0. 7 10*3 0.0-1.0 Automated eosinophil count 0.3 10*3/uL 0 .0-0.3 Automated blood basophil count (count/volume) 0.0 10*3/uL 0.0-0.1 Comprehensive metabolic panel - 09/04/18 11:20 Serum or plasma sodium measurement (moles/volume) 139 mmol/L 135-145 Serum or plasma potassium measurement (moles/volume) 4.9 mmol/L 3.6-5.0 Serum or plasma chloride measurement (moles/volume) 104 mmol/L 98-107 Carbon dioxide 23 mmol/L 21-32 Serum or plasma anion gap determination (moles/volume) 12 mmol/L 5-14 Serum or plasma urea nitrogen measurement (mass/volume ) 21 mg/dL 7-18 Serum or plasma creatinine measurement (mass/volume) 0.80 mg/dL 0.60-1.30 Serum or plasma urea nitrogen/creatinine mass ratio 26 NRG Serum or plasma creatinine measurement w ith calculation of estimated glomerular filtration rate > NRG Serum or plasma glucose measurement (mass/volume) 140 mg/dL 70-105 Serum or plasma calcium measurement (mass/volume) 9.6 mg/dL 8.5-10.1 Serum or plasma total bilirubin measurement (mass/volu me) 0.6 mg/dL 0.1-1.0 Serum or plasma alkaline phosphatase woody surement (enzymatic activity/volume) 66 U/L 40-136 Serum or plasma aspartate aminotransfera se measurement (enzymatic activity/volume) 21 U/L 5-34 Serum or plasma alanine aminotransferase measurement (enzymatic activity/volume) 20 U/L 0-55 Serum or plasma protein measurement (mass/volume) 7.4 g/dL 6.4-8.2 Serum or plasma albumin measurement (mass/volume) 3.9 g/dL 3.2-4.5 CALCIUM CORRECTED 9.7 mg/dL 8.5-10.1 Complete urinalysis with reflex to cultu re - 09/04/18 11:25 Urine color determination YELLOW NRG Urine clarity determination CLEAR NR G Urine pH measurement by test strip 7 5-9 Specific gravity of urine by test strip 1.010 1.016-1.022 Urine protein assay by test strip, semi-quantitative 3+ NEGATIVE Urine glucose detection by automated test strip NE GATIVE NEGATIVE Erythrocytes detection in urine sediment by light micr oscopy 5+ NEGATIVE Urine ketones detection by automated test strip NE GATIVE NEGATIVE Urine nitrite detection by test strip NEGATIVE NEGATIVE Urine total bilirubin detection by test strip NEGA TIVE NEGATIVE Urine urobilinogen measurement by automated test strip (mass/volume) NORMAL NORMAL Urine leukocyte esterase detection by dipstick 3+ NEGATIVE Automated urine sediment erythrocyte cou nt by microscopy (number/high power field) [HPF] NRG Automated urine sediment leukocyte count by microscopy (number/high power field) [HPF] NRG Bacteria detection in urine sediment by light microsco py FEW NRG Squamous epithelial cells detection in u rine sediment by light microscopy 2-5 NRG Crystals detection in urine sediment by light microsco py NONE NRG Casts detection in urine sediment by light microscopy NONE NRG Mucus detection in urine sediment by light microscopy NEGATIVE NRG Complete urinalysis with reflex to culture YES NRG Amorphous sediment detection in urine sediment by ligh t microscopy RARE VI PHOSPHATE NRG Bacterial urine culture - 09/04/18 11:25 Bacterial urine culture SEE COMMEN NRG COLONY COUNT . NRG Complete blood count (CBC) with automate d white blood cell (WBC) differential - 04/16/19 15:20 Blood leukocytes automated count (number/volume) 22.4 10*3/uL 4.3-11.0 Blood erythrocytes automated count (number/volume) 2.48 10*6/uL 4.35-5.85 Venous blood hemoglobin measurement (mass/volume) 7.5 g/dL 11.5-16.0 Blood hematocrit (volume fraction) 23 % 35-52 Automated erythrocyte mean corpuscular volume 93 [ foz_us] 80-99 Automated erythrocyte mean corpuscular h emoglobin (mass per erythrocyte) 30 pg 25-34 Automated erythrocyte mean corpuscular h emoglobin concentration measurement (mass/volume) 33 g/dL 32-36 Automated erythrocyte distribution width ratio 14. 9 % 10.0- 14.5 Automated blood platelet count (count/volume) 283 10*3/uL 130-400 Automated blood platelet mean volume measurement 10.4 [foz_us] 7.4-10.4 Automated blood neutrophils/100 leukocytes 75 % 42-75 Automated blood lymphocytes/100 leukocytes 17 % 12-44 Blood monocytes/100 leukocytes 7 % 0-12 Automated blood eosinophils/100 leukocytes 0 % 0-10 Automated blood basophils/100 leukocytes 0 % 0-10 Blood neutrophils automated count (number/volume) 16.8 10*3 1.8-7.8 Blood lymphocytes automated count (number/volume) 3.8 10*3 1.0-4.0 Blood monocytes automated count (number/volume) 1. 7 10*3 0.0-1.0 Automated eosinophil count 0.1 10*3/uL 0 .0-0.3 Automated blood basophil count (count/volume) 0.0 10*3/uL 0.0-0.1 PT panel in platelet poor plasma by coag ulation assay - 04/16/19 15:20 Prothrombin time (PT) in platelet poor plasma by coagu lation assay 18.9 s 12.2-14.7 INR in platelet poor plasma or blood by coagulation as say 1.5 0.8-1.4 Activated partial thromboplastin time (a PTT) in platelet poor plasma bycoagulation assay - 04/16/19 15:20 Activated partial thromboplastin time (a PTT) in platelet poor plasma bycoagulation assay 31 s 24-35 Blood lactic acid measurement (moles/vol ume) - 04/16/19 15:20 Blood lactic acid measurement (moles/volume) 2.64 mmol/L 0.50-2.00 Comprehensive metabolic panel - 04/16/19 15:20 Serum or plasma sodium measurement (moles/volume) 135 mmol/L 135-145 Serum or plasma potassium measurement (moles/volume) 4.6 mmol/L 3.6-5.0 Serum or plasma chloride measurement (moles/volume) 105 mmol/L 98-107 Carbon dioxide 21 mmol/L 21-32 Serum or plasma anion gap determination (moles/volume) 9 mmol/L 5-14 Serum or plasma urea nitrogen measurement (mass/volume ) 56 mg/dL 7-18 Serum or plasma creatinine measurement (mass/volume) 0.75 mg/dL 0.60-1.30 Serum or plasma urea nitrogen/creatinine mass ratio 75 NRG Serum or plasma creatinine measurement w ith calculation of estimated glomerular filtration rate > NRG Serum or plasma glucose measurement (mass/volume) 164 mg/dL 70-105 Serum or plasma calcium measurement (mass/volume) 7.9 mg/dL 8.5-10.1 Serum or plasma total bilirubin measurement (mass/volu me) 0.2 mg/dL 0.1-1.0 Serum or plasma alkaline phosphatase woody surement (enzymatic activity/volume) 42 U/L 40-136 Serum or plasma aspartate aminotransfera se measurement (enzymatic activity/volume) 15 U/L 5-34 Serum or plasma alanine aminotransferase measurement (enzymatic activity/volume) 12 U/L 0-55 Serum or plasma protein measurement (mass/volume) 4.9 g/dL 6.4-8.2 Serum or plasma albumin measurement (mass/volume) 2.9 g/dL 3.2-4.5 CALCIUM CORRECTED 8.8 mg/dL 8.5-10.1 Magnesium - 04/16/19 15:20 Magnesium 1.8 mg/dL 1.8-2.4 Serum or plasma troponin i.cardiac measu rement (mass/volume) - 04/16/19 15:20 Serum or plasma troponin i.cardiac measurement (mass/v olume) < ng/mL <0.028 Blood manual differential performed dete ction - 04/16/19 15:20 Blood monocytes/100 leukocytes 7 % NRG Manual blood segmented neutrophils/100 leukocytes 71 % NRG Blood band neutrophils/100 leukocytes 2 % NRG Manual blood lymphocytes/100 leukocytes 20 % NRG Manual eosinophils/100 leukocytes in nose 0 % NRG Manual blood basophils/100 leukocytes 0 % NRG Blood polychromasia detection by light microscopy SLIGHT NRG Blood anisocytosis detection by light microscopy S LIGHT NRG RED CELLS LEUKO REDUCED AS1 - 04/16/19 1 5:50 RED CELLS LEUKO REDUCED AS1 N OT AVAILABLE NRG Blood type T Indirect antibody screen pa gisselle - 04/16/19 15:50 ABO+Rh group AP NRG Transfusion band number [id number] NRG Blood group antibody screen NEGATIVE NR G Bacterial blood culture - 04/16/19 15:50 FREE TEXT EXTERNAL FROM AEROBIC BLOOD CULTURE DAIN LE NRG QUANTITY OF GROWTH . NRG Bacterial blood culture SEE COMMEN NRG Bacterial blood culture - 04/16/19 16:03 Bacterial blood culture NG NRG Complete urinalysis with reflex to cultu re - 04/16/19 16:12 Urine color determination YELLOW NRG Urine clarity determination VERY CLOUDY NRG Urine pH measurement by test strip 6.5 5-9 Specific gravity of urine by test strip 1.020 1.016-1.022 Urine protein assay by test strip, semi-quantitative 2+ NEGATIVE Urine glucose detection by automated test strip NE GATIVE NEGATIVE Erythrocytes detection in urine sediment by light micr oscopy 1+ NEGATIVE Urine ketones detection by automated test strip NE GATIVE NEGATIVE Urine nitrite detection by test strip POSITIVE NEGATIVE Urine total bilirubin detection by test strip NEGA TIVE NEGATIVE Urine urobilinogen measurement by automated test strip (mass/volume) NORMAL NORMAL Urine leukocyte esterase detection by dipstick 3+ NEGATIVE Automated urine sediment erythrocyte cou nt by microscopy (number/high power field) [HPF] NRG Automated urine sediment leukocyte count by microscopy (number/high power field) [HPF] NRG Bacteria detection in urine sediment by light microsco py LARGE NRG Squamous epithelial cells detection in u rine sediment by light microscopy 10-25 NRG Crystals detection in urine sediment by light microsco py PRESENT NRG Casts detection in urine sediment by light microscopy NONE NRG Mucus detection in urine sediment by light microscopy NEGATIVE NRG Complete urinalysis with reflex to culture CULTURE PENDING NRG Amorphous sediment detection in urine sediment by ligh t microscopy LARGE VI URATES NRG Bacterial urine culture - 04/16/19 16:12 Bacterial urine culture [id number] NRG COLONY COUNT >100,000/ML NRG FTX;REPORTABLE RML SENSITIVITY REPORT RCD 04/19 11:0 5 NRG FREE TEXT ENTRY 3 RML REPORT RCD 04/18 10:05 NRG RML Sensitivity Panel - 04/16/19 16:12 Gentamicin susceptibility test by minimum inhibitory c oncentration > NRG Trimethoprim/sulfamethoxazole susceptibi lity test by minimum inhibitoryconcentration > NRG Levofloxacin susceptibility test by minimum inhibitory concentration 4 NRG Ampicillin susceptibility test by minimum inhibitory c oncentration R NRG Cefazolin susceptibility test by minimum inhibitory co ncentration R NRG Ceftriaxone susceptibility test by minimum inhibitory concentration <= NRG Piperacillin/tazobactam susceptibility t est by minimum inhibitory concentration <= NRG Ciprofloxacin susceptibility test by minimum inhibitor y concentration > NRG Meropenem susceptibility test by minimum inhibitory co ncentration <= NRG Nitrofurantoin susceptibility test by mi nimum inhibitory concentration R NRG Amoxicillin and clavulanate potassium susc PAOLA R NRG Serum or plasma lactate measurement (mol es/volume) - 04/16/19 17:40 Serum or plasma lactate measurement (moles/volume) 1.81 mmol/L 0.50-2.00 Methicillin resistant Staphylococcus aur eus (MRSA) screening culture - 04/16/19 18:09 Methicillin resistant Staphylococcus aureus (MRSA) scr eening culture NEG NRG Whole blood hemoglobin and hematocrit pa gisselle - 04/17/19 01:21 Venous blood hemoglobin measurement (mass/volume) 7.0 g/dL 11.5-16.0 Blood hematocrit (volume fraction) 21 % 35-52 Blood lactic acid measurement (moles/vol ume) - 04/17/19 01:21 Blood lactic acid measurement (moles/volume) 0.57 mmol/L 0.50-2.00 Comprehensive metabolic panel - 04/17/19 01:21 Serum or plasma sodium measurement (moles/volume) 138 mmol/L 135-145 Serum or plasma potassium measurement (moles/volume) 4.0 mmol/L 3.6-5.0 Serum or plasma chloride measurement (moles/volume) 112 mmol/L 98-107 Carbon dioxide 20 mmol/L 21-32 Serum or plasma anion gap determination (moles/volume) 6 mmol/L 5-14 Serum or plasma urea nitrogen measurement (mass/volume ) 34 mg/dL 7-18 Serum or plasma creatinine measurement (mass/volume) 0.68 mg/dL 0.60-1.30 Serum or plasma urea nitrogen/creatinine mass ratio 50 NRG Serum or plasma creatinine measurement w ith calculation of estimated glomerular filtration rate > NRG Serum or plasma glucose measurement (mass/volume) 107 mg/dL 70-105 Serum or plasma calcium measurement (mass/volume) 7.5 mg/dL 8.5-10.1 Serum or plasma total bilirubin measurement (mass/volu me) 0.6 mg/dL 0.1-1.0 Serum or plasma alkaline phosphatase woody surement (enzymatic activity/volume) 36 U/L 40-136 Serum or plasma aspartate aminotransfera se measurement (enzymatic activity/volume) 14 U/L 5-34 Serum or plasma alanine aminotransferase measurement (enzymatic activity/volume) 12 U/L 0-55 Serum or plasma protein measurement (mass/volume) 4.3 g/dL 6.4-8.2 Serum or plasma albumin measurement (mass/volume) 2.6 g/dL 3.2-4.5 CALCIUM CORRECTED 8.6 mg/dL 8.5-10.1 Serum or plasma phosphate measurement (m ass/volume) - 04/17/19 01:21 Serum or plasma phosphate measurement (mass/volume) 2.4 mg/dL 2.3-4.7 Magnesium - 04/17/19 01:21 Magnesium 1.7 mg/dL 1.8-2.4 Complete blood count (CBC) with automate d white blood cell (WBC) differential - 04/17/19 02:44 Blood leukocytes automated count (number/volume) 16.4 10*3/uL 4.3-11.0 Blood erythrocytes automated count (number/volume) 2.94 10*6/uL 4.35-5.85 Venous blood hemoglobin measurement (mass/volume) 8.5 g/dL 11.5-16.0 Blood hematocrit (volume fraction) 26 % 35-52 Automated erythrocyte mean corpuscular volume 87 [ foz_us] 80-99 Automated erythrocyte mean corpuscular h emoglobin (mass per erythrocyte) 29 pg 25-34 Automated erythrocyte mean corpuscular h emoglobin concentration measurement (mass/volume) 33 g/dL 32-36 Automated erythrocyte distribution width ratio 18. 1 % 10.0- 14.5 Automated blood platelet count (count/volume) 190 10*3/uL 130-400 Automated blood platelet mean volume measurement 9.9 [foz_us] 7.4-10.4 Automated blood neutrophils/100 leukocytes 74 % 42-75 Automated blood lymphocytes/100 leukocytes 18 % 12-44 Blood monocytes/100 leukocytes 7 % 0-12 Automated blood eosinophils/100 leukocytes 1 % 0-10 Automated blood basophils/100 leukocytes 0 % 0-10 Blood neutrophils automated count (number/volume) 12.1 10*3 1.8-7.8 Blood lymphocytes automated count (number/volume) 3.0 10*3 1.0-4.0 Blood monocytes automated count (number/volume) 1. 2 10*3 0.0-1.0 Automated eosinophil count 0.2 10*3/uL 0 .0-0.3 Automated blood basophil count (count/volume) 0.0 10*3/uL 0.0-0.1 Capillary blood glucose measurement by g lucometer (mass/volume) - 04/17/19 08:50 Capillary blood glucose measurement by glucometer (mas s/volume) 133 mg/dL 70-110 Complete blood count (CBC) with automate d white blood cell (WBC) differential - 04/18/19 04:02 Blood leukocytes automated count (number/volume) 9.7 10*3/uL 4.3-11.0 Blood erythrocytes automated count (number/volume) 2.24 10*6/uL 4.35-5.85 Venous blood hemoglobin measurement (mass/volume) 6.5 g/dL 11.5-16.0 Blood hematocrit (volume fraction) 20 % 35-52 Automated erythrocyte mean corpuscular volume 91 [ foz_us] 80-99 Automated erythrocyte mean corpuscular h emoglobin (mass per erythrocyte) 29 pg 25-34 Automated erythrocyte mean corpuscular h emoglobin concentration measurement (mass/volume) 32 g/dL 32-36 Automated erythrocyte distribution width ratio 18. 5 % 10.0- 14.5 Automated blood platelet count (count/volume) 141 10*3/uL 130-400 Automated blood platelet mean volume measurement 9.7 [foz_us] 7.4-10.4 Automated blood neutrophils/100 leukocytes 69 % 42-75 Automated blood lymphocytes/100 leukocytes 19 % 12-44 Blood monocytes/100 leukocytes 8 % 0-12 Automated blood eosinophils/100 leukocytes 3 % 0-10 Automated blood basophils/100 leukocytes 0 % 0-10 Blood neutrophils automated count (number/volume) 6.7 10*3 1.8-7.8 Blood lymphocytes automated count (number/volume) 1.9 10*3 1.0-4.0 Blood monocytes automated count (number/volume) 0. 8 10*3 0.0-1.0 Automated eosinophil count 0.3 10*3/uL 0 .0-0.3 Automated blood basophil count (count/volume) 0.0 10*3/uL 0.0-0.1 Comprehensive metabolic panel - 04/18/19 04:02 Serum or plasma sodium measurement (moles/volume) 145 mmol/L 135-145 Serum or plasma anion gap determination (moles/volume) 3 mmol/L 5-14 Serum or plasma urea nitrogen measurement (mass/volume ) 8 mg/dL 7-18 Serum or plasma urea nitrogen/creatinine mass ratio 22 NRG Serum or plasma creatinine measurement w ith calculation of estimated glomerular filtration rate > NRG Serum or plasma glucose measurement (mass/volume) 71 mg/dL 70-105 Serum or plasma total bilirubin measurement (mass/volu me) 0.2 mg/dL 0.1-1.0 Serum or plasma alkaline phosphatase woody surement (enzymatic activity/volume) 20 U/L 40-136 Serum or plasma aspartate aminotransfera se measurement (enzymatic activity/volume) 7 U/L 5-34 Serum or plasma alanine aminotransferase measurement (enzymatic activity/volume) 8 U/L 0-55 CALCIUM CORRECTED 6.2 mg/dL 8.5-10.1 Complete blood count (CBC) with automate d white blood cell (WBC) differential - 04/18/19 06:40 Blood leukocytes automated count (number/volume) 12.3 10*3/uL 4.3-11.0 Blood erythrocytes automated count (number/volume) 2.90 10*6/uL 4.35-5.85 Venous blood hemoglobin measurement (mass/volume) 8.5 g/dL 11.5-16.0 Blood hematocrit (volume fraction) 26 % 35-52 Automated erythrocyte mean corpuscular volume 90 [ foz_us] 80-99 Automated erythrocyte mean corpuscular h emoglobin (mass per erythrocyte) 29 pg 25-34 Automated erythrocyte mean corpuscular h emoglobin concentration measurement (mass/volume) 33 g/dL 32-36 Automated erythrocyte distribution width ratio 18. 7 % 10.0- 14.5 Automated blood platelet count (count/volume) 178 10*3/uL 130-400 Automated blood platelet mean volume measurement 10.0 [foz_us] 7.4-10.4 Automated blood neutrophils/100 leukocytes 69 % 42-75 Automated blood lymphocytes/100 leukocytes 19 % 12-44 Blood monocytes/100 leukocytes 8 % 0-12 Automated blood eosinophils/100 leukocytes 3 % 0-10 Automated blood basophils/100 leukocytes 0 % 0-10 Blood neutrophils automated count (number/volume) 8.5 10*3 1.8-7.8 Blood lymphocytes automated count (number/volume) 2.3 10*3 1.0-4.0 Blood monocytes automated count (number/volume) 1. 0 10*3 0.0-1.0 Automated eosinophil count 0.4 10*3/uL 0 .0-0.3 Automated blood basophil count (count/volume) 0.0 10*3/uL 0.0-0.1 Comprehensive metabolic panel - 04/18/19 06:40 Serum or plasma sodium measurement (moles/volume) 141 mmol/L 135-145 Serum or plasma potassium measurement (moles/volume) 3.2 mmol/L 3.6-5.0 Serum or plasma chloride measurement (moles/volume) 115 mmol/L 98-107 Carbon dioxide 22 mmol/L 21-32 Serum or plasma anion gap determination (moles/volume) 4 mmol/L 5-14 Serum or plasma urea nitrogen measurement (mass/volume ) 13 mg/dL 7-18 Serum or plasma creatinine measurement (mass/volume) 0.63 mg/dL 0.60-1.30 Serum or plasma urea nitrogen/creatinine mass ratio 21 NRG Serum or plasma creatinine measurement w ith calculation of estimated glomerular filtration rate > NRG Serum or plasma glucose measurement (mass/volume) 123 mg/dL 70-105 Serum or plasma calcium measurement (mass/volume) 7.5 mg/dL 8.5-10.1 Serum or plasma total bilirubin measurement (mass/volu me) 0.4 mg/dL 0.1-1.0 Serum or plasma alkaline phosphatase woody surement (enzymatic activity/volume) 39 U/L 40-136 Serum or plasma aspartate aminotransfera se measurement (enzymatic activity/volume) 13 U/L 5-34 Serum or plasma alanine aminotransferase measurement (enzymatic activity/volume) 14 U/L 0-55 Serum or plasma protein measurement (mass/volume) 4.6 g/dL 6.4-8.2 Serum or plasma albumin measurement (mass/volume) 2.8 g/dL 3.2-4.5 CALCIUM CORRECTED 8.5 mg/dL 8.5-10.1 Complete blood count (CBC) with automate d white blood cell (WBC) differential - 04/19/19 04:31 Blood leukocytes automated count (number/volume) 11.0 10*3/uL 4.3-11.0 Blood erythrocytes automated count (number/volume) 2.66 10*6/uL 4.35-5.85 Venous blood hemoglobin measurement (mass/volume) 7.7 g/dL 11.5-16.0 Blood hematocrit (volume fraction) 24 % 35-52 Automated erythrocyte mean corpuscular volume 92 [ foz_us] 80-99 Automated erythrocyte mean corpuscular h emoglobin (mass per erythrocyte) 29 pg 25-34 Automated erythrocyte mean corpuscular h emoglobin concentration measurement (mass/volume) 32 g/dL 32-36 Automated erythrocyte distribution width ratio 18. 8 % 10.0- 14.5 Automated blood platelet count (count/volume) 193 10*3/uL 130-400 Automated blood platelet mean volume measurement 9.7 [foz_us] 7.4-10.4 Automated blood neutrophils/100 leukocytes 66 % 42-75 Automated blood lymphocytes/100 leukocytes 20 % 12-44 Blood monocytes/100 leukocytes 10 % 0-12 Automated blood eosinophils/100 leukocytes 3 % 0-10 Automated blood basophils/100 leukocytes 0 % 0-10 Blood neutrophils automated count (number/volume) 7.3 10*3 1.8-7.8 Blood lymphocytes automated count (number/volume) 2.3 10*3 1.0-4.0 Blood monocytes automated count (number/volume) 1. 1 10*3 0.0-1.0 Automated eosinophil count 0.3 10*3/uL 0 .0-0.3 Automated blood basophil count (count/volume) 0.0 10*3/uL 0.0-0.1 Comprehensive metabolic panel - 04/19/19 04:31 Serum or plasma sodium measurement (moles/volume) 143 mmol/L 135-145 Serum or plasma potassium measurement (moles/volume) 3.3 mmol/L 3.6-5.0 Serum or plasma chloride measurement (moles/volume) 116 mmol/L 98-107 Carbon dioxide 21 mmol/L 21-32 Serum or plasma anion gap determination (moles/volume) 6 mmol/L 5-14 Serum or plasma urea nitrogen measurement (mass/volume ) 10 mg/dL 7-18 Serum or plasma creatinine measurement (mass/volume) 0.67 mg/dL 0.60-1.30 Serum or plasma urea nitrogen/creatinine mass ratio 15 NRG Serum or plasma creatinine measurement w ith calculation of estimated glomerular filtration rate > NRG Serum or plasma glucose measurement (mass/volume) 128 mg/dL 70-105 Serum or plasma calcium measurement (mass/volume) 7.8 mg/dL 8.5-10.1 Serum or plasma total bilirubin measurement (mass/volu me) 0.2 mg/dL 0.1-1.0 Serum or plasma alkaline phosphatase woody surement (enzymatic activity/volume) 39 U/L 40-136 Serum or plasma aspartate aminotransfera se measurement (enzymatic activity/volume) 11 U/L 5-34 Serum or plasma alanine aminotransferase measurement (enzymatic activity/volume) 13 U/L 0-55 Serum or plasma protein measurement (mass/volume) 4.4 g/dL 6.4-8.2 Serum or plasma albumin measurement (mass/volume) 2.7 g/dL 3.2-4.5 CALCIUM CORRECTED 8.8 mg/dL 8.5-10.1 Complete blood count (CBC) with automate d white blood cell (WBC) differential - 04/20/19 06:55 Blood leukocytes automated count (number/volume) 10.4 10*3/uL 4.3-11.0 Blood erythrocytes automated count (number/volume) 2.92 10*6/uL 4.35-5.85 Venous blood hemoglobin measurement (mass/volume) 8.5 g/dL 11.5-16.0 Blood hematocrit (volume fraction) 27 % 35-52 Automated erythrocyte mean corpuscular volume 91 [ foz_us] 80-99 Automated erythrocyte mean corpuscular h emoglobin (mass per erythrocyte) 29 pg 25-34 Automated erythrocyte mean corpuscular h emoglobin concentration measurement (mass/volume) 32 g/dL 32-36 Automated erythrocyte distribution width ratio 18. 5 % 10.0- 14.5 Automated blood platelet count (count/volume) 223 10*3/uL 130-400 Automated blood platelet mean volume measurement 10.1 [foz_us] 7.4-10.4 Automated blood neutrophils/100 leukocytes 87 % 42-75 Automated blood lymphocytes/100 leukocytes 9 % 12-44 Blood monocytes/100 leukocytes 4 % 0-12 Automated blood eosinophils/100 leukocytes 0 % 0-10 Automated blood basophils/100 leukocytes 0 % 0-10 Blood neutrophils automated count (number/volume) 9.1 10*3 1.8-7.8 Blood lymphocytes automated count (number/volume) 0.9 10*3 1.0-4.0 Blood monocytes automated count (number/volume) 0. 5 10*3 0.0-1.0 Automated eosinophil count 0.0 10*3/uL 0 .0-0.3 Automated blood basophil count (count/volume) 0.0 10*3/uL 0.0-0.1 Automated reticulocyte percentage - 02/03 06:55 Blood reticulocytes count (number/volume) 153 10*9 /L 24-90 Blood reticulocytes/100 erythrocytes 5.25 % 0.50-2.40 Whole blood basic metabolic panel - 02/03 06:55 Serum or plasma sodium measurement (moles/volume) 139 mmol/L 135-145 Serum or plasma potassium measurement (moles/volume) 3.6 mmol/L 3.6-5.0 Serum or plasma chloride measurement (moles/volume) 108 mmol/L 98-107 Carbon dioxide 24 mmol/L 21-32 Serum or plasma anion gap determination (moles/volume) 7 mmol/L 5-14 Serum or plasma urea nitrogen measurement (mass/volume ) 8 mg/dL 7-18 Serum or plasma creatinine measurement (mass/volume) 0.67 mg/dL 0.60-1.30 Serum or plasma urea nitrogen/creatinine mass ratio 12 NRG Serum or plasma creatinine measurement w ith calculation of estimated glomerular filtration rate > NRG Serum or plasma glucose measurement (mass/volume) 188 mg/dL 70-105 Serum or plasma calcium measurement (mass/volume) 8.1 mg/dL 8.5-10.1 Complete blood count (CBC) with automate d white blood cell (WBC) differential - 04/21/19 06:10 Blood leukocytes automated count (number/volume) 14.3 10*3/uL 4.3-11.0 Blood erythrocytes automated count (number/volume) 2.70 10*6/uL 4.35-5.85 Venous blood hemoglobin measurement (mass/volume) 7.8 g/dL 11.5-16.0 Blood hematocrit (volume fraction) 25 % 35-52 Automated erythrocyte mean corpuscular volume 92 [ foz_us] 80-99 Automated erythrocyte mean corpuscular h emoglobin (mass per erythrocyte) 29 pg 25-34 Automated erythrocyte mean corpuscular h emoglobin concentration measurement (mass/volume) 31 g/dL 32-36 Automated erythrocyte distribution width ratio 18. 8 % 10.0- 14.5 Automated blood platelet count (count/volume) 256 10*3/uL 130-400 Automated blood platelet mean volume measurement 9.8 [foz_us] 7.4-10.4 Automated blood neutrophils/100 leukocytes 83 % 42-75 Automated blood lymphocytes/100 leukocytes 11 % 12-44 Blood monocytes/100 leukocytes 7 % 0-12 Automated blood eosinophils/100 leukocytes 0 % 0-10 Automated blood basophils/100 leukocytes 0 % 0-10 Blood neutrophils automated count (number/volume) 11.8 10*3 1.8-7.8 Blood lymphocytes automated count (number/volume) 1.5 10*3 1.0-4.0 Blood monocytes automated count (number/volume) 0. 9 10*3 0.0-1.0 Automated eosinophil count 0.0 10*3/uL 0 .0-0.3 Automated blood basophil count (count/volume) 0.0 10*3/uL 0.0-0.1 Comprehensive metabolic panel - 04/21/19 06:10 Serum or plasma sodium measurement (moles/volume) 143 mmol/L 135-145 Serum or plasma potassium measurement (moles/volume) 4.3 mmol/L 3.6-5.0 Serum or plasma chloride measurement (moles/volume) 110 mmol/L 98-107 Carbon dioxide 28 mmol/L 21-32 Serum or plasma anion gap determination (moles/volume) 5 mmol/L 5-14 Serum or plasma urea nitrogen measurement (mass/volume ) 10 mg/dL 7-18 Serum or plasma creatinine measurement (mass/volume) 0.67 mg/dL 0.60-1.30 Serum or plasma urea nitrogen/creatinine mass ratio 15 NRG Serum or plasma creatinine measurement w ith calculation of estimated glomerular filtration rate > NRG Serum or plasma glucose measurement (mass/volume) 168 mg/dL 70-105 Serum or plasma calcium measurement (mass/volume) 8.3 mg/dL 8.5-10.1 Serum or plasma total bilirubin measurement (mass/volu me) 0.2 mg/dL 0.1-1.0 Serum or plasma alkaline phosphatase woody surement (enzymatic activity/volume) 41 U/L 40-136 Serum or plasma aspartate aminotransfera se measurement (enzymatic activity/volume) 17 U/L 5-34 Serum or plasma alanine aminotransferase measurement (enzymatic activity/volume) 25 U/L 0-55 Serum or plasma protein measurement (mass/volume) 4.8 g/dL 6.4-8.2 Serum or plasma albumin measurement (mass/volume) 3.0 g/dL 3.2-4.5 CALCIUM CORRECTED 9.1 mg/dL 8.5-10.1 Serum or plasma lithium measurement (mol es/volume) - 04/21/19 06:10 BNP level 724.9 pg/mL <100.0 Arterial blood gas measurement - 9 16:01 Blood pCO2 37 mm[Hg] 35-45 Blood pO2 69 mm[Hg] 79-93 Arterial blood bicarbonate measurement (moles/volume) 24 mmol/L 23-27 Arterial blood base excess by calculation 0.3 mmol /L -2.5-2.5 Arterial blood oxygen saturation measurement 95 % 94-100 * Inhaled oxygen flow rate 3 L NRG Arterial blood pH measurement with patient temperature correction 7.44 7.37-7.43 Arterial blood carbon dioxide, total measurement (mole s/volume) 25.2 mmol/L 21.0-31.0 Body site LEFT RADIAL NRG Assessment of wrist artery patency prior to arterial p uncture POSITIVE NRG Setting of ventilation mode NO NR G Measurement of body temperature 98.6 NRG Capillary blood glucose measurement by g lucometer (mass/volume) - 04/22/19 09:55 Capillary blood glucose measurement by glucometer (mas s/volume) 343 mg/dL 70-110 Complete blood count (CBC) with automate d white blood cell (WBC) differential - 04/22/19 10:22 Blood leukocytes automated count (number/volume) 15.3 10*3/uL 4.3-11.0 Blood erythrocytes automated count (number/volume) 3.00 10*6/uL 4.35-5.85 Venous blood hemoglobin measurement (mass/volume) 8.7 g/dL 11.5-16.0 Blood hematocrit (volume fraction) 27 % 35-52 Automated erythrocyte mean corpuscular volume 91 [ foz_us] 80-99 Automated erythrocyte mean corpuscular h emoglobin (mass per erythrocyte) 29 pg 25-34 Automated erythrocyte mean corpuscular h emoglobin concentration measurement (mass/volume) 32 g/dL 32-36 Automated erythrocyte distribution width ratio 17. 7 % 10.0- 14.5 Automated blood platelet count (count/volume) 313 10*3/uL 130-400 Automated blood platelet mean volume measurement 10.1 [foz_us] 7.4-10.4 Automated blood neutrophils/100 leukocytes 93 % 42-75 Automated blood lymphocytes/100 leukocytes 3 % 12-44 Blood monocytes/100 leukocytes 4 % 0-12 Automated blood eosinophils/100 leukocytes 0 % 0-10 Automated blood basophils/100 leukocytes 0 % 0-10 Blood neutrophils automated count (number/volume) 14.2 10*3 1.8-7.8 Blood lymphocytes automated count (number/volume) 0.5 10*3 1.0-4.0 Blood monocytes automated count (number/volume) 0. 6 10*3 0.0-1.0 Automated eosinophil count 0.0 10*3/uL 0 .0-0.3 Automated blood basophil count (count/volume) 0.0 10*3/uL 0.0-0.1 Comprehensive metabolic panel - 04/22/19 10:22 Serum or plasma sodium measurement (moles/volume) 136 mmol/L 135-145 Serum or plasma potassium measurement (moles/volume) 3.3 mmol/L 3.6-5.0 Serum or plasma chloride measurement (moles/volume) 96 mmol/L 98-107 Carbon dioxide 29 mmol/L 21-32 Serum or plasma anion gap determination (moles/volume) 11 mmol/L 5-14 Serum or plasma urea nitrogen measurement (mass/volume ) 19 mg/dL 7-18 Serum or plasma creatinine measurement (mass/volume) 0.85 mg/dL 0.60-1.30 Serum or plasma urea nitrogen/creatinine mass ratio 22 NRG Serum or plasma creatinine measurement w ith calculation of estimated glomerular filtration rate > NRG Serum or plasma glucose measurement (mass/volume) 310 mg/dL 70-105 Serum or plasma calcium measurement (mass/volume) 8.5 mg/dL 8.5-10.1 Serum or plasma total bilirubin measurement (mass/volu me) 0.3 mg/dL 0.1-1.0 Serum or plasma alkaline phosphatase woody surement (enzymatic activity/volume) 52 U/L 40-136 Serum or plasma aspartate aminotransfera se measurement (enzymatic activity/volume) 17 U/L 5-34 Serum or plasma alanine aminotransferase measurement (enzymatic activity/volume) 35 U/L 0-55 Serum or plasma protein measurement (mass/volume) 5.9 g/dL 6.4-8.2 Serum or plasma albumin measurement (mass/volume) 3.4 g/dL 3.2-4.5 CALCIUM CORRECTED 9.0 mg/dL 8.5-10.1 Comprehensive metabolic panel - 04/23/19 05:35 Serum or plasma sodium measurement (moles/volume) 139 mmol/L 135-145 Serum or plasma potassium measurement (moles/volume) 3.8 mmol/L 3.6-5.0 Serum or plasma chloride measurement (moles/volume) 99 mmol/L 98-107 Carbon dioxide 29 mmol/L 21-32 Serum or plasma anion gap determination (moles/volume) 11 mmol/L 5-14 Serum or plasma urea nitrogen measurement (mass/volume ) 24 mg/dL 7-18 Serum or plasma creatinine measurement (mass/volume) 0.80 mg/dL 0.60-1.30 Serum or plasma urea nitrogen/creatinine mass ratio 30 NRG Serum or plasma creatinine measurement w ith calculation of estimated glomerular filtration rate > NRG Serum or plasma glucose measurement (mass/volume) 305 mg/dL 70-105 Serum or plasma calcium measurement (mass/volume) 8.8 mg/dL 8.5-10.1 Serum or plasma total bilirubin measurement (mass/volu me) 0.3 mg/dL 0.1-1.0 Serum or plasma alkaline phosphatase woody surement (enzymatic activity/volume) 46 U/L 40-136 Serum or plasma aspartate aminotransfera se measurement (enzymatic activity/volume) 13 U/L 5-34 Serum or plasma alanine aminotransferase measurement (enzymatic activity/volume) 30 U/L 0-55 Serum or plasma protein measurement (mass/volume) 5.4 g/dL 6.4-8.2 Serum or plasma albumin measurement (mass/volume) 3.2 g/dL 3.2-4.5 CALCIUM CORRECTED 9.4 mg/dL 8.5-10.1 Complete blood count (CBC) with automate d white blood cell (WBC) differential - 04/23/19 05:36 Blood leukocytes automated count (number/volume) 15.6 10*3/uL 4.3-11.0 Blood erythrocytes automated count (number/volume) 2.83 10*6/uL 4.35-5.85 Venous blood hemoglobin measurement (mass/volume) 8.2 g/dL 11.5-16.0 Blood hematocrit (volume fraction) 26 % 35-52 Automated erythrocyte mean corpuscular volume 91 [ foz_us] 80-99 Automated erythrocyte mean corpuscular h emoglobin (mass per erythrocyte) 29 pg 25-34 Automated erythrocyte mean corpuscular h emoglobin concentration measurement (mass/volume) 32 g/dL 32-36 Automated erythrocyte distribution width ratio 17. 8 % 10.0- 14.5 Automated blood platelet count (count/volume) 328 10*3/uL 130-400 Automated blood platelet mean volume measurement 9.9 [foz_us] 7.4-10.4 Automated blood neutrophils/100 leukocytes 92 % 42-75 Automated blood lymphocytes/100 leukocytes 5 % 12-44 Blood monocytes/100 leukocytes 3 % 0-12 Automated blood eosinophils/100 leukocytes 0 % 0-10 Automated blood basophils/100 leukocytes 0 % 0-10 Blood neutrophils automated count (number/volume) 14.3 10*3 1.8-7.8 Blood lymphocytes automated count (number/volume) 0.7 10*3 1.0-4.0 Blood monocytes automated count (number/volume) 0. 5 10*3 0.0-1.0 Automated eosinophil count 0.0 10*3/uL 0 .0-0.3 Automated blood basophil count (count/volume) 0.0 10*3/uL 0.0-0.1 Complete blood count (CBC) with automate d white blood cell (WBC) differential - 01/14/20 18:02 Blood leukocytes automated count (number/volume) 7.8 10*3/uL 4.3-11.0 Blood erythrocytes automated count (number/volume) 4.66 10*6/uL 4.35-5.85 Venous blood hemoglobin measurement (mass/volume) 9.3 g/dL 11.5-16.0 Blood hematocrit (volume fraction) 31 % 35-52 Automated erythrocyte mean corpuscular volume 67 [ foz_us] 80-99 Automated erythrocyte mean corpuscular h emoglobin (mass per erythrocyte) 20 pg 25-34 Automated erythrocyte mean corpuscular h emoglobin concentration measurement (mass/volume) 30 g/dL 32-36 Automated erythrocyte distribution width ratio 27. 4 % 10.0- 14.5 Automated blood platelet count (count/volume) 398 10*3/uL 130-400 Automated blood platelet mean volume measurement 9.6 [foz_us] 7.4-10.4 Automated blood neutrophils/100 leukocytes 62 % 42-75 Automated blood lymphocytes/100 leukocytes 23 % 12-44 Blood monocytes/100 leukocytes 13 % 0-12 Automated blood eosinophils/100 leukocytes 2 % 0-10 Automated blood basophils/100 leukocytes 0 % 0-10 Blood neutrophils automated count (number/volume) 4.8 10*3 1.8-7.8 Blood lymphocytes automated count (number/volume) 1.8 10*3 1.0-4.0 Blood monocytes automated count (number/volume) 1. 0 10*3 0.0-1.0 Automated eosinophil count 0.1 10*3/uL 0 .0-0.3 Automated blood basophil count (count/volume) 0.0 10*3/uL 0.0-0.1 PT panel in platelet poor plasma by coag ulation assay - 01/14/20 18:02 Prothrombin time (PT) in platelet poor plasma by coagu lation assay 17.6 s 12.2-14.7 INR in platelet poor plasma or blood by coagulation as say 1.4 0.8-1.4 Activated partial thromboplastin time (a PTT) in platelet poor plasma bycoagulation assay - 01/14/20 18:02 Activated partial thromboplastin time (a PTT) in platelet poor plasma bycoagulation assay 35 s 24-35 Comprehensive metabolic panel - 01/14/20 18:02 Serum or plasma sodium measurement (moles/volume) 137 mmol/L 135-145 Serum or plasma potassium measurement (moles/volume) 4.2 mmol/L 3.6-5.0 Serum or plasma chloride measurement (moles/volume) 104 mmol/L 98-107 Carbon dioxide 26 mmol/L 21-32 Serum or plasma anion gap determination (moles/volume) 7 mmol/L 5-14 Serum or plasma urea nitrogen measurement (mass/volume ) 15 mg/dL 7-18 Serum or plasma creatinine measurement (mass/volume) 0.90 mg/dL 0.60-1.30 Serum or plasma urea nitrogen/creatinine mass ratio 17 NRG Serum or plasma creatinine measurement w ith calculation of estimated glomerular filtration rate 60 NRG Serum or plasma glucose measurement (mass/volume) 117 mg/dL 70-105 Serum or plasma calcium measurement (mass/volume) 8.8 mg/dL 8.5-10.1 Serum or plasma total bilirubin measurement (mass/volu me) 0.3 mg/dL 0.1-1.0 Serum or plasma alkaline phosphatase woody surement (enzymatic activity/volume) 90 U/L 40-136 Serum or plasma aspartate aminotransfera se measurement (enzymatic activity/volume) 14 U/L 5-34 Serum or plasma alanine aminotransferase measurement (enzymatic activity/volume) 12 U/L 0-55 Serum or plasma protein measurement (mass/volume) 7.2 g/dL 6.4-8.2 Serum or plasma albumin measurement (mass/volume) 4.1 g/dL 3.2-4.5 CALCIUM CORRECTED 8.7 mg/dL 8.5-10.1 Serum or plasma troponin i.cardiac measu rement (mass/volume) - 01/14/20 18:02 Serum or plasma troponin i.cardiac measurement (mass/v olume) < ng/mL <0.028 Complete urinalysis with reflex to cultu re - 01/14/20 18:11 Urine color determination YELLOW NRG Urine clarity determination CLOUDY NR G Urine pH measurement by test strip 7.0 5-9 Specific gravity of urine by test strip >= 1.016-1.022 Urine protein assay by test strip, semi-quantitative 1+ NEGATIVE Urine glucose detection by automated test strip NE GATIVE NEGATIVE Erythrocytes detection in urine sediment by light micr oscopy 2+ NEGATIVE Urine ketones detection by automated test strip NE GATIVE NEGATIVE Urine nitrite detection by test strip NEGATIVE NEGATIVE Urine total bilirubin detection by test strip NEGA TIVE NEGATIVE Urine urobilinogen measurement by automated test strip (mass/volume) 0.2 mg/dL < = 1.0 Urine leukocyte esterase detection by dipstick 2+ NEGATIVE Automated urine sediment erythrocyte cou nt by microscopy (number/high power field) [HPF] NRG Automated urine sediment leukocyte count by microscopy (number/high power field) [HPF] NRG Bacteria detection in urine sediment by light microsco py LARGE NRG Crystals detection in urine sediment by light microsco py NONE NRG Casts detection in urine sediment by light microscopy NONE NRG Mucus detection in urine sediment by light microscopy NEGATIVE NRG Complete urinalysis with reflex to culture YES NRG Bacterial urine culture - 01/14/20 18:11 Bacterial urine culture 3 OR MORE NRG COLONY COUNT >100,000/ML NRG FTX;REPORTABLE SUGGESTING PROBABLE COLLECTION NRG FREE TEXT ENTRY 2 CONTAMINATION WITH SKIN AURELIANO NRG FREE TEXT ENTRY 3 NO SUSCEPTIBILITY PERFORMED NRG FREE TEXT ENTRY 4 DR VEGA REQUESTED NO WORK UP NRG Complete blood count (CBC) with automate d white blood cell (WBC) differential - 06/18/20 10:40 Blood leukocytes automated count (number/volume) 10.4 10*3/uL 4.3-11.0 Blood erythrocytes automated count (number/volume) 4.94 10*6/uL 4.35-5.85 Venous blood hemoglobin measurement (mass/volume) 14.2 g/dL 11.5-16.0 Blood hematocrit (volume fraction) 43 % 35-52 Automated erythrocyte mean corpuscular volume 87 [ foz_us] 80-99 Automated erythrocyte mean corpuscular h emoglobin (mass per erythrocyte) 29 pg 25-34 Automated erythrocyte mean corpuscular h emoglobin concentration measurement (mass/volume) 33 g/dL 32-36 Automated erythrocyte distribution width ratio 17. 5 % 10.0- 14.5 Automated blood platelet count (count/volume) 303 10*3/uL 130-400 Automated blood platelet mean volume measurement 10.0 [foz_us] 7.4-10.4 Automated blood neutrophils/100 leukocytes 73 % 42-75 Automated blood lymphocytes/100 leukocytes 16 % 12-44 Blood monocytes/100 leukocytes 9 % 0-12 Automated blood eosinophils/100 leukocytes 2 % 0-10 Automated blood basophils/100 leukocytes 0 % 0-10 Blood neutrophils automated count (number/volume) 7.5 10*3 1.8-7.8 Blood lymphocytes automated count (number/volume) 1.6 10*3 1.0-4.0 Blood monocytes automated count (number/volume) 0. 9 10*3 0.0-1.0 Automated eosinophil count 0.2 10*3/uL 0 .0-0.3 Automated blood basophil count (count/volume) 0.0 10*3/uL 0.0-0.1 Comprehensive metabolic panel - 06/18/20 10:40 Serum or plasma sodium measurement (moles/volume) 138 mmol/L 135-145 Serum or plasma potassium measurement (moles/volume) 4.5 mmol/L 3.6-5.0 Serum or plasma chloride measurement (moles/volume) 104 mmol/L 98-107 Carbon dioxide 23 mmol/L 21-32 Serum or plasma anion gap determination (moles/volume) 11 mmol/L 5-14 Serum or plasma urea nitrogen measurement (mass/volume ) 18 mg/dL 7-18 Serum or plasma creatinine measurement (mass/volume) 0.89 mg/dL 0.60-1.30 Serum or plasma urea nitrogen/creatinine mass ratio 20 NRG Serum or plasma creatinine measurement w ith calculation of estimated glomerular filtration rate > NRG Serum or plasma glucose measurement (mass/volume) 147 mg/dL 70-105 Serum or plasma calcium measurement (mass/volume) 9.5 mg/dL 8.5-10.1 Serum or plasma total bilirubin measurement (mass/volu me) 0.4 mg/dL 0.1-1.0 Serum or plasma alkaline phosphatase woody surement (enzymatic activity/volume) 79 U/L 40-136 Serum or plasma aspartate aminotransfera se measurement (enzymatic activity/volume) 16 U/L 5-34 Serum or plasma alanine aminotransferase measurement (enzymatic activity/volume) 21 U/L 0-55 Serum or plasma protein measurement (mass/volume) 7.5 g/dL 6.4-8.2 Serum or plasma albumin measurement (mass/volume) 4.1 g/dL 3.2-4.5 CALCIUM CORRECTED 9.4 mg/dL 8.5-10.1 Blood lactic acid measurement (moles/vol ume) - 06/18/20 10:40 Blood lactic acid measurement (moles/volume) 1.27 mmol/L 0.50-2.00 PT panel in platelet poor plasma by coag ulation assay - 06/18/20 10:40 Prothrombin time (PT) in platelet poor plasma by coagu lation assay 14.6 s 12.2-14.7 INR in platelet poor plasma or blood by coagulation as say 1.1 0.8-1.4 Activated partial thromboplastin time (a PTT) in platelet poor plasma bycoagulation assay - 06/18/20 10:40 Activated partial thromboplastin time (a PTT) in platelet poor plasma bycoagulation assay 32 s 24-35 Encounters ACCT No. Visit Date/Time Discharge Status Pt. Type Provider Facility Loc./Unit Complaint [id number] 12/22/2019 10:00:00 12/22/2019 23:59: 59 CLS Outpatient SHAHNAZ MARQUEZ APRN [facility] [id number] 03/18/2015 16:54:00 03/18/2015 23:59: 59 CLS Outpatient SHANIQUE VEGA MD [id number] 01/25/2015 09:06:00 01/25/2015 23:59: 59 CLS Outpatient SHARIF JOHNSON MD [id number] 12/06/2014 05:51:00 12/06/2014 23:59: 59 CLS Outpatient SHANIQUE VEGA MD [id number] 11/26/2014 15:23:00 11/26/2014 23:59: 59 CLS Outpatient SHARIF JOHNSON MD [id number] 11/26/2014 15:23:00 11/26/2014 23:59: 59 CLS Outpatient SHARIF JOHNSON MD [id number] 11/13/2014 15:20:00 11/13/2014 23:59: 59 CLS Outpatient MIKE HAZEL DO [id number] 10/27/2014 13:31:00 10/27/2014 23:59: 59 CLS Outpatient MASSIEL VEGA [id number] 09/15/2014 16:03:00 09/15/2014 23:59: 59 CLS Outpatient SHARIF JOHNSON MD [id number] 08/17/2014 15:49:00 08/17/2014 23:59: 59 CLS Outpatient SHARIF JOHNSON MD [id number] 07/29/2014 10:54:00 07/29/2014 23:59: 59 CLS Outpatient BAIG AUBREYDESI [id number] 07/02/2014 11:34:00 07/02/2014 23:59: 59 CLS Outpatient SHARIF JOHNSON MD [id number] 06/18/2014 14:51:00 06/18/2014 23:59: 59 CLS Outpatient SHARIF JOHNSON MD [id number] 06/02/2014 14:58:00 06/02/2014 23:59: 59 CLS Outpatient JOVANNI BURGOSDESI [id number] 05/18/2014 14:07:00 05/18/2014 23:59: 59 CLS Outpatient SHARIF JOHNSON MD [id number] 03/24/2014 15:01:00 03/24/2014 23:59: 59 CLS Outpatient SHARIF JOHNSON MD [id number] 03/11/2014 13:43:00 03/11/2014 23:59: 59 CLS Outpatient SHARIF JOHNSON MD [id number] 01/28/2014 14:29:00 01/28/2014 23:59: 59 CLS Outpatient SHARIF JOHNSON MD [id number] 01/28/2014 14:29:00 01/28/2014 23:59: 59 CLS Outpatient SHARIF JOHNSON MD [id number] 01/13/2014 15:39:00 01/13/2014 23:59: 59 CLS Outpatient CAROLINE MENDOZA MD [id number] 01/13/2014 15:39:00 01/13/2014 23:59: 59 CLS Outpatient CAROLINE MENDOZA MD [id number] 12/15/2013 15:34:00 12/15/2013 23:59: 59 CLS Outpatient MIKE HAZEL DO [id number] 12/15/2013 15:34:00 12/15/2013 23:59: 59 CLS Outpatient MAX DHILLON APRN [id number] 12/11/2013 11:52:00 12/11/2013 23:59: 59 CLS Outpatient MAX DHILLON APRN [id number] 11/12/2013 16:30:00 11/12/2013 23:59: 59 CLS Outpatient SHAHNAZ MARQUEZ APRN [id number] 11/09/2013 12:50:00 11/09/2013 23:59: 59 CLS Outpatient AUDIE MARC APRN [id number] 11/03/2013 09:32:00 11/03/2013 23:59: 59 CLS Outpatient DESI BAIG APRN [id number] 10/20/2013 09:44:00 10/20/2013 23:59: 59 CLS Outpatient DESI BAIG APRN [id number] 09/22/2013 14:05:00 09/22/2013 23:59: 59 CLS Outpatient CAROLINE MENDOZA MD [id number] 09/08/2013 08:20:00 09/08/2013 23:59: 59 CLS Outpatient CAROLINE MENDOZA MD [id number] 08/31/2013 08:05:00 08/31/2013 23:59: 59 CLS Outpatient CAROLINE MENDOZA MD [id number] 08/07/2013 11:43:00 08/07/2013 23:59: 59 CLS Outpatient MARIA DE JESUS BUTLER DO [id number] 01/22/2013 09:37:00 01/22/2013 23:59: 59 CLS Outpatient MARIA DE JESUS BUTLER DO [id number] 01/15/2013 10:49:00 01/15/2013 23:59: 59 CLS Outpatient CAROLINE MENDOZA MD [id number] 01/15/2013 10:49:00 01/15/2013 23:59: 59 CLS Outpatient CAROLINE MENDOZA MD [id number] 12/23/2012 13:28:00 12/23/2012 23:59: 59 CLS Outpatient MARIA DE JESUS BUTLER DO [id number] 11/24/2012 14:22:00 11/24/2012 23:59: 59 CLS Outpatient MIKE HAZEL DO [id number] 11/14/2012 13:45:00 11/14/2012 23:59: 59 CLS Outpatient MIKE HAZEL DO [id number] 10/24/2012 13:17:00 10/24/2012 23:59: 59 CLS Outpatient SHANIQUE VEGA MD [id number] 10/24/2012 13:17:00 10/24/2012 23:59: 59 CLS Outpatient [id number] 10/21/2012 10:34:00 10/21/2012 23:59: 59 CLS Outpatient [id number] 09/11/2012 11:29:00 09/11/2012 23:59:5 9 CLS Outpatient MARIA DE JESUS BUTLER DO [id number] 07/27/2013 11:07:00 Document Registration [id number] 07/02/2013 08:45:00 Document Registration [id number] 07/01/2013 11:44:00 Document Registration [id number] 07/01/2013 11:44:00 Document Registration [id number] 06/05/2013 08:35:00 Document Registration [id number] 05/13/2013 09:45:00 Document Registration [id number] 05/06/2013 10:52:00 Document Registration [id number] 04/21/2013 11:00:00 Document Registration [id number] 03/13/2013 11:19:00 Document Registration [id number] 02/12/2020 08:00:00 23:59:59 CLS Preadmit BISHNU ROLDAN FACC, CEHLLE WALTERS CCDS [facility] CARD SOB,ARRHYTHMIA, PAF [id number] 01/26/2020 14:12:00 23:59:59 CLS Outpatient SATHISH ABAD 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 [facility] CARD PAF,PAD,CAD,HTN ,CAROTID ART STENOSIS [id number] 01/14/2020 17:57:00 20:59:00 DIS Emergency GIORGIOVIRIDIANA [facility] ER POSSIBLE STROKE [id number] 07/24/2019 14:21:00 23:59:59 CLS Outpatient CANDE BOYER APRN [facility] RT COPD [id number] 05/28/2019 08:20:00 23:59:59 CLS Outpatient CANDE BOYER BLOOM CONVEYOR OPERATOR [facility] RAD COPD [id number] 04/24/2019 17:27:00 19:47:00 DIS Emergency ERIK OTERO [facility] ER R SHOULDER PAIN [id number] 04/16/2019 17:00:00 13:20:00 DIS Inpatient ELIZABETH ROLDAN, SHARIF Menjivar [facility] 4TH GI BLEED;ACUTE BLOOD LO SS ANEMIA AND SHOCK;UTI [id number] 04/06/2019 10:26:00 019 23:59:59 CLS Outpatient SHAHNAZ MARQUEZ IC DESIGNER 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 [facility] RAD R05 COUGH [id number] 09/04/2018 11:17:00 018 15:02:00 DIS Emergency JENNIFER EGAN [facility] ER PAIN AROUND CATH [id number] 05/05/2018 05:12:00 018 10:27:00 DIS Emergency JUAREZ DAWSON MD [facility] ER BACK PAIN [id number] 04/10/2018 13:32:00 018 23:59:59 CLS Outpatient RAFIQ CAMPOVERDE IC DESIGNER 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 [facility] RAD ABDOMINAL AORTIC ANEUR YSM, ILIAC ANEURYSYM [id number] 04/01/2018 07:46:00 018 14:20:00 DIS Outpatient CHELLE GOETZ MD, FACC, FACP CC DS [facility] CATH PERIPHERAL ANGIOGRAPHY [id number] 03/12/2018 09:18:00 018 23:59:59 CLS Outpatient MARCIA LUI MD [facility] CARD PREOP Z01.810 Z01.818 [id number] 03/05/2018 08:57:00 018 23:59:59 CLS Outpatient CHELLE GOETZ MD, FACC, FACP CC DS [facility] CARD SOB [id number] 02/16/2018 10:58:00 018 23:59:59 CLS Outpatient SHANIQUE VEGA MD [facility] CVS UTI [id number] 02/10/2018 10:54:00 Omar 23:59:59 CLS Outpatient MARCIA LUI MD [facility] CARD CAROTID ARTERY STENOSIS ,BILATERAL [id number] 12/23/2017 10:16:00 Omar 23:59:59 CLS Outpatient MARCIA LUI MD [facility] CARD Z01.810,Z01.818 [id number] 2017 20:15:00 018 22:55:00 DIS Emergency GREGORY ROLDAN, JESSICA Adhikari [facility] ER WENT UNRESPONSIVE,RACHELLE H EAD, VCV [id number] 12/02/2017 07:48:00 018 23:59:59 CLS Outpatient SATHISH ABAD [facility] RAD I65.23 [id number] 11/26/2017 21:20:00 018 11:41:00 DIS Inpatient PRUDENCE SHAW MD [facility] 4TH UROSEPSIS,ABDOMINAL KAREN N,FEVER [id number] 11/26/2017 07:18:00 018 15:18:00 DIS Outpatient LUL NORWOOD MD [facility] SDC INCONTINENCE,RETENTION [id number] 11/25/2017 13:20:00 018 23:59:59 CLS Outpatient SATHISH ABAD [facility] RAD CAROTID ARTERY STENOSIS [id number] 11/19/2017 05:29:00 018 14:39:00 DIS Outpatient LUL NORWOOD MD [facility] PREOP INCONTINENCE,RETENTION [id number] 11/04/2017 05:57:00 017 23:59:59 CLS Outpatient LUL NORWOOD MD [facility] PREOP INCONTINENCE,RETENTION [id number] 10/15/2017 07:43:00 017 23:59:59 CLS Outpatient BISHNU ROLDAN FACC, CHELLE FACP CC DS [facility] RAD AAA [id number] 10/15/2017 07:43:00 017 14:13:00 DIS Outpatient BISHNU ROLDAN FACC, ALI FACP CC DS [facility] CATH AAA,CAD,PAF ,HTN [id number] 10/08/2017 07:01:00 017 23:59:59 CLS Outpatient BISHNU ROLDAN FACC, ALI FACP CC DS [facility] CARD R06.02 SOB [id number] 10/04/2017 13:16:00 017 23:59:59 CLS Outpatient BISHNU ROLDAN FACC, CHELLE WALTERS CC DS [facility] CARD SOB [id number] 10/04/2017 07:15:00 017 23:59:59 CLS Preadmit CHELLE GOETZ MD, FACC, FACP CCDS [facility] CARD SOB [id number] 02/12/2017 05:56:00 017 11:40:00 DIS Outpatient LUL NORWOOD MD [facility] OAB [id number] 02/06/2017 09:39:00 017 13:57:00 DIS Outpatient LUL NORWOOD MD [facility] PREOP OAB [id number] 11/27/2016 06:58:00 017 16:00:00 DIS Outpatient LUL NORWOOD MD [facility] ISD [id number] 11/22/2016 10:00:00 017 13:00:00 DIS Outpatient LUL NORWOOD MD [facility] PREOP ISD [id number] 05/14/2016 15:45:00 016 13:05:00 DIS Inpatient PRUDENCE SHAW MD [facility] 4TH R SIDE ABD PAIN, N/V,LE UKOCYTOSIS [id number] 12/07/2015 07:47:00 016 09:30:00 DIS Emergency CHARLES ROLDAN, TARA Arellano [facility] ER RT HIP PAIN [id number] 03/10/2015 11:28:00 015 12:00:00 DIS Inpatient SHARIF JOHNSON MD [facility] CSD CHF HYPOKALEMIA FALLS T HYROID DYSFUNCTION [id number] 02/27/2015 21:37:00 015 13:30:00 DIS Inpatient SHANIQUE VEGA MD [facility] SURGICAL ALTERED MENTAL STATUS U TI [id number] 02/25/2015 03:44:00 015 06:24:00 DIS Emergency EUNICE ROLDAN, JUAREZ Powell [facility] ER FALL,BUMP ON LF T SIDE OF HEAD [id number] 02/03/2015 17:50:00 015 16:55:00 DIS Inpatient SASAH ROLDAN, MYRNA Mc [facility] IRF DEBILITY [id number] 12/28/2014 09:10:00 015 17:30:00 DIS Outpatient BISHNU ROLDAN FACC, CHELLE FACP CC DS [facility] CATH CAD FATIGUE LOWER EXTREMITY DISCOMFORT [id number] 12/24/2014 13:00:00 015 23:59:59 CLS Outpatient SHANIQUE VEGA MD [facility] HH POSSIBLE UTI [id number] 12/20/2014 20:00:00 23:59:59 CLS Preadmit WILL CASPER DO [facility] SLEEP ARRHYTHMIAS,MOOD DISORD ER,HYPOXIA [id number] 12/03/2014 09:58:00 015 10:47:00 DIS Outpatient DIANNA MACHADO MD [facility] CARD HIP OSTEOARTHRITIS [id number] 12/02/2014 09:45:00 015 23:59:59 CLS Preadmit SHARIF JOHNSON MD [facility] RAD NAUSEA,UNABLE TO TOLERA TE SOLID FOODS [id number] 11/22/2014 14:15:00 015 23:59:59 CLS Preadmit WILL CASPER DO [facility] RT HYPOXIA DYPSNEA [id number] 11/11/2014 11:54:00 014 14:00:00 DIS Emergency EMANUEL WILKINSON MD [facility] ER NAUSEA [id number] 11/04/2014 17:27:00 014 11:35:00 DIS Inpatient SHANIQUE VEGA MD [facility] 4TH UTI,GENERAL MALAISE [id number] 11/01/2014 22:05:00 16:45:00 DIS Inpatient MIKE HAZEL DO Dionne Amaral [facility] 4TH UTI,ALTERED MENTAL STAT US [id number] 09/25/2014 11:09:00 23:59:59 CLS Outpatient [id number] 08/23/2014 12:50:00 23:59:59 CLS Outpatient DIANNA MACHADO MD Via [facility] CARD HIP OSTEOARTHRITIS [id number] 08/02/2014 10:32:00 23:59:59 CLS Outpatient MARY VILLALOBOS ANDRE [facility] RAD SHOULDER PAIN [id number] 07/23/2014 08:50:00 23:59:59 CLS Outpatient DIANNA MACHADO MD Via [facility] CARD SIJD [id number] 06/28/2014 12:46:00 14:24:00 DIS Outpatient DIANNA MACHADO MD Via [facility] CARD HIP OSTEOARTHRITIS [id number] 06/07/2014 12:24:00 14:09:00 DIS Emergency RUFINA PEREZ DO a [facility] ER LEFT SHOULDER INJURY [id number] 05/24/2014 12:58:00 13:45:00 DIS Outpatient DIANNA MACHADO MD Via [facility] CARD HIP OSTEOARTHRITIS [id number] 12/22/2013 12:42:00 23:59:59 CLS Outpatient MAX DHILLON Via [facility] CARD HEART MURMUR LOWER EXT EDEMA [id number] 11/12/2013 18:13:00 14:30:00 DIS Inpatient SHARIF JOHNSON MD Via [address] COPD EXACERBATION [id number] 07/02/2013 11:37:00 12:50:00 DIS Inpatient SHANIQUE VEGA MD Via [address] COPD,EXACERBATION [id number] 07/02/2013 11:06:00 013 23:59:59 CLS Emergency [id number] 06/11/2013 09:24:00 013 23:59:59 CLS Outpatient CAROLINE MENDOZA MD Via [facility] RAD 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 [id number] 06/18/2020 10:39:[address] Emergency TARA SOTO MD Via [facility] ER ABD PAIN [id number] 02/17/2015 16:12:00 Document Registration [id number] 02/17/2015 16:12:00 Document Registration [id number] 02/17/2015 16:12:00 Document Registration [id number] 02/17/2015 16:12:00 Document Registration [id number] 09/30/2012 14:20:00 Document Registration [id number] 07/01/2012 14:08:00 Document Registration [id number] 03/11/2012 14:34:00 Document Registration [id number] 10/17/2011 15:30:00 Document Registration [id number] 10/09/2011 15:24:00 Document Registration [id number] 10/06/2011 09:02:00 Document Registration [id number] 07/30/2011 17:25:00 Document Registration [id number] 07/17/2011 16:12:00 Document Registration
[2020-06-18] MEDS: morphine INJ 4 MG/ML 1 ML (VIAL/SYRINGE) IVP PRN ×2 (17:40→22:26)
--- NOTE | 2020-06-18 17:58 | HISTORY AND PHYSICAL ---
DATE OF SERVICE: ADMITTING PRIMARY CARE PHYSICIAN: Dr. Itz Chacon. HISTORY OF PRESENT ILLNESS: The patient is an 84-year-old female who presented to the Emergency Department with lower abdominal pain this morning. She has a known history of umbilical hernia, which she states has become more symptomatic more recently. She was evaluated and found to have this umbilical hernia, which is of good size; however, reducible. She states that there is a significant amount of pain upon palpation. After reduction of the hernia. A knuckle of what appears to be greater omentum was palpated and would come back through after pressure was released. She is otherwise eating well and having normal bowel movements, not showing any signs of obstruction. This most likely indicates a form of sliding hernia where the omentum encompasses part of the hernia sac. She does have a significant amount of pain and will be admitted and we will get medical clearance before proceeding with an umbilical hernia repair. PAST MEDICAL HISTORY: COPD, coronary artery disease, atrial fibrillation, abdominal aortic aneurysm, hypercholesterolemia, hypertension, endometriosis, chronic urinary tract infection, chronic constipation, gastroesophageal reflux disease, degenerative joint disease, diabetes, anxiety, depression, degenerative joint disease. PAST SURGICAL HISTORY: Tonsillectomy, appendectomy, bladder surgery, coronary artery bypass grafting, cholecystectomy, hysterectomy, joint surgery, craniotomy for aneurysm in 2008. ALLERGIES: SULFA, DIPHENHYDRAMINE, HYDROCHLOROTHIAZIDE, . MEDICATIONS: Albuterol 1 puff q.6 hours p.r.n., atorvastatin 40 mg daily, budesonide/formoterol 2 puffs b.i.d., bupropion 300 mg daily, diltiazem 120 mg b.i.d., furosemide 20 mg q.48 hours, gabapentin 400 mg t.i.d., lorazepam 0.5 mg at bedtime, mirabegron 25 mg daily, nitrofurantoin 100 mg b.i.d., Zofran 4 mg p.r.n., oxybutynin 10 mg daily, Protonix 40 mg daily, potassium 20 mEq q.48 hours, prednisolone eyedrops q.i.d., prednisone 10 mg p.o. daily, sertraline 50 mg daily, tamsulosin 0.4 mg daily, tramadol 50 mg t.i.d., trazodone 25 mg daily, flavoxate 100 mg t.i.d. SOCIAL HISTORY: Previous smoker, quit 1987. Negative alcohol. FAMILY HISTORY: Sister, colon cancer. Brother, myocardial infarction. Father, stroke. VITAL SIGNS: Temperature 36.3, blood pressure 103/69, pulse 86, respirations 16, pulse ox 93% on 1.5 liters nasal cannula. REVIEW OF SYSTEMS: This is a well-nourished female in slightly guarded secondary to the abdominal pain. She is not experiencing any shortness of breath or difficulty breathing. No chest pain, palpitations, diaphoresis. No nausea, vomiting, no diarrhea or constipation. No fever, chills, no recent inadvertent weight loss. All other review of systems negative. PHYSICAL EXAMINATION: CHEST: Few scattered rales and rhonchi bilaterally. HEART: Regular, no murmurs. EXTREMITIES: No lower extremity edema, negative Homans sign. HEENT: No scleral icterus. NECK: No cervical lymphadenopathy. No fever, chills, no recent inadvertent weight loss. ABDOMEN: Soft, slightly distended. There is a reducible umbilical hernia, which is reducible; however, a hard nodule knuckle is palpable with some mild discomfort. This has been a chronic issue and most likely indicates a knuckle of greater omentum comprising part of the hernia sac and a form of sliding hernia. SKIN: Warm, dry. ASSESSMENT AND PLAN: An 84-year-old female with a symptomatic umbilical hernia where adequate pain control could not be achieved in the Emergency Department and we will proceed with admission, IV fluids as well as adequate pain control. We will also consult hospitalist for further medical management as well as clearance for surgery and once cleared, we will then proceed with an umbilical hernia repair with mesh. Job ID: [id number] DocumentID: [id number] Dictated Date: 06/18/2020 17:28:21 Block And Case Maker Date: 06/18/2020 17:57:01 Dictated By: LES ETIENNE MD
[2020-06-18 19:56] VITALS: BP 119/69
--- NOTE | 2020-06-18 20:44 | NUR ---
Noticed in the patients paper chart from [facility] that the patient is a DNR but listed as a full code. Sent a message to Dr. Arreguin requesting to change the patients status in the chart from Full Code to DNR. He agreed to make the change. Full Code DCd DNR order placed.
[2020-06-18 23:44] VITALS: BP 117/73
[2020-06-19] MEDS: morphine INJ 4 MG/ML 1 ML (VIAL/SYRINGE) IVP PRN ×5 (02:57→22:12)
[2020-06-19 04:14] VITALS: BP 104/67
[2020-06-19 05:32] LABS: BASOPHILS % (AUTO) 0 % (0-10); EOSINOPHILS # (AUTO) 0.3 10^3/uL (0.0-0.3); EOSINOPHILS % (AUTO) 3 % (0-10); HEMATOCRIT 39 % (35-52); HEMOGLOBIN 12.4 G/DL (11.5-16.0); LYMPHOCYTES # (AUTO) 1.8 X 10^3 (1.0-4.0); LYMPHOCYTES % (AUTO) 18 % (12-44); MEAN CORPUSCULAR HEMOGLOBIN 29 PG (25-34); MEAN CORPUSCULAR HGB CONC 32 G/DL (32-36); MEAN CORPUSCULAR VOLUME 90 FL (80-99); MEAN PLATELET VOLUME 10.3 FL (7.4-10.4); MONOCYTES # (AUTO) 0.9 X 10^3 (0.0-1.0); MONOCYTES % (AUTO) 9 % (0-12); NEUTROPHILS # (AUTO) 6.9 X 10^3 (1.8-7.8); NEUTROPHILS % (AUTO) 70 % (42-75); PLATELET COUNT 218 10^3/uL (130-400); RED CELL DISTRIBUTION WIDTH 17.6 % (10.0-14.5); WHITE BLOOD COUNT 9.9 10^3/uL (4.3-11.0)
[2020-06-19 05:40] LABS: ALBUMIN 3.4 GM/DL (3.2-4.5); CHLORIDE 106 MMOL/L (98-107); POTASSIUM 5.2 MMOL/L (3.6-5.0); SODIUM 138 MMOL/L (135-145)
[2020-06-19 05:41] LABS: CALCIUM 8.5 MG/DL (8.5-10.1)
[2020-06-19 05:42] LABS: GLUCOSE 127 MG/DL (70-105); TOTAL PROTEIN 6.5 GM/DL (6.4-8.2)
[2020-06-19 05:43] LABS: CARBON DIOXIDE 23 MMOL/L (21-32)
[2020-06-19 05:44] LABS: BILIRUBIN,TOTAL 0.5 MG/DL (0.1-1.0)
[2020-06-19 05:46] LABS: ALKALINE PHOSPHATASE 73 U/L (40-136); GFR ESTIMATED > 60
[2020-06-19 05:47] LABS: BUN/CREATININE RATIO 19
[2020-06-19 05:49] LABS: ALANINE AMINOTRANSFERASE 18 U/L (0-55)
--- NOTE | 2020-06-19 06:26 | Consultation - Hospitalist ---
HPI History of Present Illness: HPI/Chief Complaint Chief complaint: Medical management of umbilical hernia pain History of present illness: Pain from the abdominal hernia is significant Very hard of hearing From a senior living Home meds will be addressed Hypoxia if off oxygen General surgery consultation appreciated We will increase morphine to 4 mg IV every 2 hours instead of every 3 hours Source: patient, RN/MD Exam Limitations: clinical condition Date Seen 06/19/20 Attending Physician Libby Arreguin MD PCP Itz Chacon MD Referring Physician Date of Admission Jun 18, 2020 at 14:20 Home Medications & Allergies Home Medications Reviewed patient Home Medication Reconciliation performed by pharmacy medication reconciliations operations and maintenance technician and/or nursing. Patients Allergies have been reviewed. Allergies Allergies Coded Allergies Sulfa (Sulfonamide Antibiotics) (Verified Allergy, Unknown, 04/16/19) diphenhydramine HCl (Verified Allergy, Unknown, 04/16/19) hydrochlorothiazide (Unverified Allergy, Unknown, 04/16/19) varenicline tartrate (Verified Allergy, Unknown, 04/16/19) Past Urwdckv-Cdgqvr-Ydxexq Hx Past Med/Social Hx: Reviewed Nursing Past Med/Soc Hx, Reviewed and Corrections made Patient Social History Marrital Status: single Employed/Student: retired Alcohol Use: Rarely Uses Recreational Drug Use: No Smoking Status: Former Smoker Former Smoker, Quit: Oct 15, 1988 Type Used: Cigarettes 2nd Hand Smoke Exposure: No Recent Foreign Travel: No Contact w/other who traveled: No Recent Hopitalizations: No Recent Infectious Disease Expo: No Immunizations Up To Date Tetanus Booster (TDap): Unknown Pediatric: No Date of Pneumonia Vaccine: Sep 05, 2014 Date of Influenza Vaccine: Aug 19, 2017 Seasonal Allergies Seasonal Allergies: No Past Medical History Surgeries: Adenoidectomy, Appendectomy, Bladder Surgery, Cardiac, CABG, Gallbladder, Hysterectomy, Joint Replacement, Orthopedic, Tonsillectomy Respiratory: Asthma, COPD Cardiac: Aneurysm, Atrial Fibrillation, Coronary Artery Disease, High Cholesterol, Hypertension : No Reproductive: Yes Sexually Transmitted Disease: No Female Reproductive Disorders: Endometriosis Hysterectomy Genitourinary: UTI-Chronic Gastrointestinal: Gastroesophageal Reflux, Chronic Constipation Musculoskeletal: Degenerate Disk Disease, Arthritis, Chronic Back Pain Endocrine: Diabetes, Non-Insulin dep HEENT: Cataract Loss of Vision: Denies Hearing Impairment: Denies Psychosocial: Anxiety, Depression History of Blood Disorders: No Adverse Reaction to Blood Jeffers: No Family History Reviewed Nursing Family Hx Cancer 09 SISTER Cancer of colon Cataract 03 MOTHER, Onset:Unknown Family history: Allergy 03 FATHER, Onset:Unknown 03 MOTHER, Onset:Unknown Family history: Arthritis 03 FATHER, Onset:Unknown 03 MOTHER, Onset:Unknown 09 SISTER, Onset:Unknown Family history: Cardiovascular disease 03 FATHER, Onset:Unknown 03 MOTHER, Onset:Unknown 09 BROTHER, Onset:Unknown 09 SISTER, Onset:Unknown Family history: Diabetes mellitus 03 MOTHER, Onset:Unknown Family history: Gastrointestinal disease 03 FATHER, Onset:Unknown Family history: Hypertension 03 MOTHER, Onset:Unknown Family history: Osteoporosis 03 MOTHER, Onset:Unknown Hearing loss 03 FATHER, Onset:Unknown Heart disease 03 FATHER, Onset:Unknown 03 MOTHER, Onset:Unknown 09 BROTHER, Onset:Unknown Hypercholesterolemia 03 MOTHER, Onset:Unknown Malignant neoplasm of lung 09 SISTER, Onset:Unknown Myocardial infarction 09 BROTHER, Onset:Unknown Parkinson's disease Stroke 03 FATHER, Onset:Unknown Thyroid disease No Family History of: Abdominal aortic aneurysm Robert's disease Alcoholism Aphasia Chest pain Congenital heart disease Congestive heart failure Cystic fibrosis Dementia Dysphagia Family history: Alzheimer's disease Family history: Asthma Family history: Breast disease Family history: Coronary thrombosis Family history: Glaucoma Family history: Thyroid disorder Headache Hereditary disease History of - anemia History of - disorder History of - respiratory disease History of drug abuse Human immunodeficiency virus (HIV) seropositivity Infertile Kidney disease Prostate cancer Psychotic disorder Seizure disorder Tuberculosis Visual impairment Heart Disease, Diabetes Review of Systems Constitutional: see HPI Gastrointestinal: abdominal pain Physical Exam Physical Exam Vital Signs Vital Signs - First Documented 06/18/20 06/18/20 06/18/20 10:48 12:10 15:03 Temp 36.7 Pulse 101 Resp 18 B/P (MAP) 163/94 (117) Pulse Ox 93 O2 Delivery Nasal Cannula O2 Flow Rate 2.00 Capillary Refill : Less Than 3 SecondsLess Than 3 Seconds Height, Weight, BMI Height: 5'2.00" Weight: 165lbs. 7.0oz. 74.757257td; 32.73 BMI Method:Stated General Appearance: WD/WN, Mild Distress, Obese HEENT: PERRL/EOMI, TMs Normal, Pharynx Normal Neck: Non Tender, Supple Respiratory: Lungs Clear, Normal Breath Sounds Cardiovascular: No Murmur, Tachycardia Gastrointestinal: Soft; No Distended, No Guarding; Other (periumbilical hernia noted. This reduced with some blood pressure manipulation. Tender in the suprapubic and lower abdominal region) Back: Normal Inspection, No CVA Tenderness, No Vertebral Tenderness Extremity: Normal Range of Motion, Non Tender Neurologic/Psychiatric: Alert, Other (hard of hearing. Answers questions and follows simple commands.) Results Results/Procedures Labs Laboratory Tests 06/18/20 10:40 06/19/20 05:00 Patient resulted labs reviewed. Assessment/Plan Assessment and Plan Assess & Plan/Chief Complaint Assessment: Acute abdominal pain from abdominal hernia Hypoxia Presbycusis Chronic debility resides in a senior living Hypertension On anticoagulants Plan: Hold anticoagulants in case surgery needed Maintain on oxygen Albuterol 3 times daily scheduled Home meds Diagnosis/Problems Diagnosis/Problems (1) Umbilical hernia, incarcerated Clinical Quality Measures DVT/VTE Risk/Contraindication: Risk Factor Score Per Nursin RFS Level Per Nursing on Admit: 4+=Very High BARBER CRONIN DO Jun 19, 2020 06:26
[2020-06-19] MEDS: LEVOFLOXACIN 500 MG/100 ML IV 100 ML IV SCH (07:54)
[2020-06-19 08:00] VITALS: BP 118/71
[2020-06-19] MEDS ORDERED: SERT100T PO (09:38)
[2020-06-19] MEDS ORDERED: DILT300C36 PO (09:42)
[2020-06-19] MEDS ORDERED: APIX2.5T PO (09:47)
[2020-06-19] MEDS ORDERED: MTP25TSR PO (09:47)
[2020-06-19] MEDS ORDERED: ASPI-999 PO (09:47)
[2020-06-19] MEDS ORDERED: PROP1.5D OU (09:54)
[2020-06-19] MEDS ORDERED: BENZ9GEL3 MM (10:01)
[2020-06-19] MEDS ORDERED: FERR325T18 PO (10:01)
[2020-06-19] MEDS: LACTATED RINGERS 1,000 ML IV SCH (10:53)
[2020-06-19] MEDS: ONDANSETRON 4 MG/2 ML (SDV) Z0FRAN IVP PRN (11:31)
[2020-06-19 12:00] VITALS: BP 133/55
--- NOTE | 2020-06-19 12:20 | Progress Note-Pre Operative ---
Pre-Operative Progress Note H&P Reviewed The H&P was reviewed, patient examined and no changes noted. Date Seen by Provider: Jun 19, 2020 Time Seen by Provider: 12:20 Date H&P Reviewed: Jun 19, 2020 Time H&P Reviewed: 12:20 Pre-Operative Diagnosis: symptomatic incarcerated umbilical hernia LES ETIENNE MD Jun 19, 2020 12:20
[2020-06-19] MEDS: RT-ALBUTEROL SULF 2.5 MG/3 ML PRE-MIX VIAL INH SCH ×2 (14:57→19:02)
--- NOTE | 2020-06-19 15:00 | NUR ---
MRSA NASAL SWAB AND COVID SWAB DONE FOR PRE OP FOR SURGERY, CONSENT SIGNED
--- NOTE | 2020-06-19 15:12 | NUR ---
THIS NURSE HAS ATTEMPTED TO CALL SON MARIA DE JESUS AND DAUGHTER IN [facility] TO INFORM THEM OF SURGERY ON 06/20/20, NO ANSWER, MESSAGE LEFT FOR THEM TO CALL NURSE
[2020-06-19] MEDS: HYDROcodone/APAP 7.5 MG/325 MG (LORTAB, LORCET PLUS) TABLET PO PRN (15:25)
--- NOTE | 2020-06-19 16:38 | NUR ---
JAI PRETTY RETURNED CALL AND WAS INFORMED OF SURGERY 06/20/20
[2020-06-19 16:50] VITALS: BP 115/65
[2020-06-19 19:22] VITALS: BP 119/75
[2020-06-19] MEDS: ALPRAZolam 0.25 MG (XANAX) TAB PO PRN (22:48)
[2020-06-20] VITALS: BP 130/71
[2020-06-20] MEDS: morphine INJ 4 MG/ML 1 ML (VIAL/SYRINGE) IVP PRN ×4 (01:02→17:29)
[2020-06-20 03:50] VITALS: BP 125/67
[2020-06-20] MEDS: RT-ALBUTEROL SULF 2.5 MG/3 ML PRE-MIX VIAL INH SCH ×4 (06:43→19:04)
[2020-06-20] MEDS: LACTATED RINGERS 1,000 ML IV SCH (06:56)
[2020-06-20 08:01] VITALS: BP 134/72
[2020-06-20] MEDS: LEVOFLOXACIN 500 MG/100 ML IV 100 ML IV SCH (08:38)
--- NOTE | 2020-06-20 09:45 | NUR ---
MS 4MG IV FOR C/O KNEE PAIN. CRYING.
[2020-06-20] MEDS ORDERED: LORazepam INJ 2 MG/ML (ATIVAN) VIAL ONE (10:11)
--- NOTE | 2020-06-20 10:20 | NUR ---
CONTINUES TO CRY IN PAIN WITH RT KNEE PAIN. DR. BURLESON ON FLOOR. ATIVAN 1MG IV PER ORDER.
[2020-06-20] MEDS ORDERED: FAMOTIDINE 20MG/2ML IV (PEPCID) IV ONE (10:30)
[2020-06-20] MEDS ORDERED: LORazepam INJ 2 MG/ML (ATIVAN) VIAL IVP ONE (10:30)
[2020-06-20] MEDS ORDERED: LACTATED RINGERS 1,000 ML IV PRN (11:00)
--- NOTE | 2020-06-20 11:05 | NUR ---
DR. BURLESON HERE AND ASSESSED PT. DTR REQUESTING CARDIOLOGY CONSULT. DR. GOETZ NOTIFIED.
--- NOTE | 2020-06-20 11:09 | History & Physical ---
HENRRY RIBEIRO MED STUDENT 06/20/20 1109: History of Present Illness History of Present Illness Reason for visit/HPI incarcerated umbilical hernia and abdominal pain. Pt states she's had an umbilical hernia for a year but it "popped into pain" for 2 days. It began Saturday morning. hurts to breath and move. Pt in severe distress and crying in pain. 12/10 pain that radiates to R leg. Can't move knee or leg on R. Pt had R sided stroke a year ago and another one but can't remember when. Movement makes pain worse. pain is better with morphine or when pt is "knocked out." Date of Admission Jun 18, 2020 at 14:20 Time Seen by a Provider: 10:00 I consulted on this patient on 06/20/20 11:03 Attending Physician Libby Arreguin MD Admitting Physician Itz Chacon MD Consult Allergies and Home Medications Allergies Coded Allergies: Sulfa (Sulfonamide Antibiotics) (Verified Allergy, Unknown, 04/16/19) diphenhydramine HCl (Verified Allergy, Unknown, 04/16/19) hydrochlorothiazide (Unverified Allergy, Unknown, 04/16/19) varenicline tartrate (Verified Allergy, Unknown, 04/16/19) Home Medications Acetaminophen 325 Mg Tablet, 650 MG PO Q4H PRN for PAIN-MILD, (Reported) TAKES 2 (325MG) TABLETS Albuterol Sulfate 8.5 Gm Hfa.aer.ad, 2 PUFF IH Q6H PRN for SHORTNESS OF BREATH, (Reported) Apixaban 2.5 Mg Tablet, 2.5 MG PO BID, (Reported) Aspirin 81 Mg Tab.chew, 81 MG PO Q48H, (Reported) Atorvastatin Calcium 40 Mg Tablet, 40 MG PO DAILY, (Reported) Benzocaine 9 Gm Gel..gram., 1 APPLIC MM QID PRN for PAIN-MILD (1-4), (Reported) apply to gums four times a day for oral pain Budesonide/Formoterol Fumarate 10.2 Gm Hfa.aer.ad, 2 PUFF IH BID, (Reported) Bupropion HCl 300 Mg Tab.er.24h, 300 MG PO HS, (Reported) Diltiazem HCl 300 Mg Cap.er.24h, 300 MG PO DAILY, (Reported) Ferrous Sulfate 325 Mg Tablet.dr, 325 MG PO DAILY, (Reported) TAKE WITH ORANGE JUICE Furosemide 20 Mg Tablet, 20 MG PO Q48H, (Reported) Gabapentin 400 Mg Capsule, 400 MG PO TID, (Reported) Guaifenesin/Dextromethorphan 237 Ml Liquid, 5 ML PO Q4H PRN for COUGH, (Reported) Lorazepam 0.5 Mg Tablet, 0.25 MG PO BID, (Reported) TAKE 1/2 (0.5MG) TABLET Mag Hydrox/Aluminum Hyd/Simeth 355 Ml Oral.susp, 30 ML PO Q4H PRN for INDIGESTION, (Reported) Metoprolol Succinate 25 Mg Tab.er.24h, 25 MG PO DAILY, (Reported) Mirabegron 25 Mg Tab.er.24h, 25 MG PO DAILY, (Reported) Oxybutynin Chloride 10 Mg Tab.er.24, 10 MG PO DAILY, (Reported) Pantoprazole Sodium 40 Mg Tablet.dr, 40 MG PO DAILY, (Reported) Potassium Chloride 20 Meq Tab.er.prt, 40 MEQ PO Q48H, (Reported) TAKES 2 (20MEQ) TABLETS EVERY OTHER DAY Propylene Glycol 1.5 Ml Drops, 1 DROP OU TID, (Reported) Sertraline HCl 100 Mg Tablet, 100 MG PO DAILY, (Reported) Tamsulosin HCl 0.4 Mg Cap, 0.4 MG PO DAILY 30MIN P MEAL, (Reported) TAKE 1/2 HOUR AFTER SAME MEAL Tramadol HCl 50 Mg Tablet, 50 MG PO TID, (Reported) Trazodone HCl 50 Mg Tablet, 25 MG PO HS, (Reported) TAKES 1/2 (50MG) TABLET [Flavoxate 100MG] , 100 MG PO TID PRN for BLADDER SPASMS, (Reported) Patient Home Medication List Home Medication List Reviewed: Yes Past Avjwmgw-Isknxe-Xbqwze Hx Patient Social History Marrital Status: single Employed/Student: retired Alcohol Use: Rarely Uses Recreational Drug Use: No Smoking Status: Former Smoker Former Smoker, Quit: Oct 15, 1988 Type Used: Cigarettes 2nd Hand Smoke Exposure: No Recent Foreign Travel: No Contact w/other who traveled: No Recent Hopitalizations: No Recent Infectious Disease Expo: No Immunizations Up To Date Tetanus Booster (TDap): Unknown Pediatric: No Date of Pneumonia Vaccine: Sep 05, 2014 Date of Influenza Vaccine: Aug 19, 2017 Seasonal Allergies Seasonal Allergies: No Surgeries Yes Adenoidectomy, Appendectomy, Bladder Surgery, Cardiac, CABG, Gallbladder, Hysterectomy, Joint Replacement, Orthopedic, Tonsillectomy Respiratory Yes Asthma, COPD Cardiovascular Yes (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, 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, Atrial Fibrillation, Coronary Artery Disease, High Cholesterol, Hypertension Neurological Yes (HAD BRAIN SURGERY FOR ANEURYSM 2008, dysphagia) Reproductive System : No Hx Reproductive Disorders: Yes Sexually Transmitted Disease: No Female Reproductive Disorders: Endometriosis 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 Genitourinary Yes (suprapubic catheter) UTI-Chronic Gastrointestinal No Gastroesophageal Reflux, Chronic Constipation Musculoskeletal Yes ( BILAT ROTATOR CUFF SURGERY) Degenerate Disk Disease, Arthritis, Chronic Back Pain Endocrine History of Endocrine Disorders: Yes Endocrine Disorders: Diabetes, Non-Insulin dep HEENT HEENT Disorders: Cataract Loss of Vision: Denies Hearing Impairment: Denies Cancer No Psychosocial History of Psychiatric Problem: Yes (panic disorder) Behavioral Health Disorders: Anxiety, Depression Integumentary History of Skin or Integumenta: No Blood Transfusions History of Blood Disorders: No Adverse Reaction to a Blood Tr: No Family Medical History Significant Family History: Heart Disease, Diabetes Family Hx: Cancer 09 SISTER Cancer of colon Cataract 03 MOTHER, Onset:Unknown Family history: Allergy 03 FATHER, Onset:Unknown 03 MOTHER, Onset:Unknown Family history: Arthritis 03 FATHER, Onset:Unknown 03 MOTHER, Onset:Unknown 09 SISTER, Onset:Unknown Family history: Cardiovascular disease 03 FATHER, Onset:Unknown 03 MOTHER, Onset:Unknown 09 BROTHER, Onset:Unknown 09 SISTER, Onset:Unknown Family history: Diabetes mellitus 03 MOTHER, Onset:Unknown Family history: Gastrointestinal disease 03 FATHER, Onset:Unknown Family history: Hypertension 03 MOTHER, Onset:Unknown Family history: Osteoporosis 03 MOTHER, Onset:Unknown Hearing loss 03 FATHER, Onset:Unknown Heart disease 03 FATHER, Onset:Unknown 03 MOTHER, Onset:Unknown 09 BROTHER, Onset:Unknown Hypercholesterolemia 03 MOTHER, Onset:Unknown Malignant neoplasm of lung 09 SISTER, Onset:Unknown Myocardial infarction 09 BROTHER, Onset:Unknown Parkinson's disease Stroke 03 FATHER, Onset:Unknown Thyroid disease No Family History of: Abdominal aortic aneurysm Moncure's disease Alcoholism Aphasia Chest pain Congenital heart disease Congestive heart failure Cystic fibrosis Dementia Dysphagia Family history: Alzheimer's disease Family history: Asthma Family history: Breast disease Family history: Coronary thrombosis Family history: Glaucoma Family history: Thyroid disorder Headache Hereditary disease History of - anemia History of - disorder History of - respiratory disease History of drug abuse Human immunodeficiency virus (HIV) seropositivity Infertile Kidney disease Prostate cancer Psychotic disorder Seizure disorder Tuberculosis Visual impairment Review of Systems Constitutional: see HPI EENTM: hearing loss ([place]) Gastrointestinal: abdominal pain (umbilical) Musculoskeletal: joint pain (knee), muscle stiffness, muscle weakness Physical Exam Vital Signs Vital Signs - First Documented 06/18/20 06/18/20 06/18/20 10:48 12:10 15:03 Temp 36.7 Pulse 101 Resp 18 B/P (MAP) 163/94 (117) Pulse Ox 93 O2 Delivery Nasal Cannula O2 Flow Rate 2.00 Capillary Refill : Less Than 3 SecondsLess Than 3 Seconds Height, Weight, BMI Height: 5'2.00" Weight: 165lbs. 7.0oz. [id number]; 32.73 BMI Method:Stated General Appearance: Severe Distress Extremity: Other (decreased ROM in LE on R. pain.) Skin: Warm/Dry Assessment/Plan Assessment and Plan Problems: (1) Umbilical hernia, incarcerated Status: Acute Assessment & Plan: laparoscopic surgery to reduce hernia. wound care. pain management meds (morphine etc). monitor for changes and infection. (2) Leg pain Qualifiers: Qualified Codes: M79.604 - Pain in right leg Assessment & Plan: Get x-ray of knee plus joint above and below ie hip and ankle. PT to help increase ROM. monitor for swelling, bruising, pain. check fall history. Admission Diagnosis Admission Status: Inpatient Order (span 2 midnights) Reason for Inpatient Admission: incarcerated umbilical hernia Clinical Quality Measures DVT/VTE Risk/Contraindication: Risk Factor Score Per Nursin RFS Level Per Nursing on Admit: 4+=Very High Supervisory-Addendum Brief Verification & Attestation Participated in pt care: history Personally performed: history Care discussed with: Medical Student Procedures: n/a n/a ASYA BURLESON MD 06/20/202007: History of Present Illness History of Present Illness Reason for visit/HPI Agree with above HPI. In addition patient moaning in pain today about her right knee. Denies any trauma but states that she was moving a couple days ago and it popped but just started hurting this AM. Denies any fall. States that her abdominal pain has improved this AM. Tachycardic this AM and has significant cardiac history so I have consulted [facility] for pre surgery eval. Allergies and Home Medications Allergies Coded Allergies: Sulfa (Sulfonamide Antibiotics) (Verified Allergy, Unknown, 04/16/19) diphenhydramine HCl (Verified Allergy, Unknown, 04/16/19) hydrochlorothiazide (Unverified Allergy, Unknown, 04/16/19) varenicline tartrate (Verified Allergy, Unknown, 04/16/19) Home Medications Acetaminophen 325 Mg Tablet, 650 MG PO Q4H PRN for PAIN-MILD, (Reported) TAKES 2 (325MG) TABLETS Albuterol Sulfate 8.5 Gm Hfa.aer.ad, 2 PUFF IH Q6H PRN for SHORTNESS OF BREATH, (Reported) Apixaban 2.5 Mg Tablet, 2.5 MG PO BID, (Reported) Aspirin 81 Mg Tab.chew, 81 MG PO Q48H, (Reported) Atorvastatin Calcium 40 Mg Tablet, 40 MG PO DAILY, (Reported) Benzocaine 9 Gm Gel..gram., 1 APPLIC MM QID PRN for PAIN-MILD (1-4), (Reported) apply to gums four times a day for oral pain Budesonide/Formoterol Fumarate 10.2 Gm Hfa.aer.ad, 2 PUFF IH BID, (Reported) Bupropion HCl 300 Mg Tab.er.24h, 300 MG PO HS, (Reported) Diltiazem HCl 300 Mg Cap.er.24h, 300 MG PO DAILY, (Reported) Ferrous Sulfate 325 Mg Tablet.dr, 325 MG PO DAILY, (Reported) TAKE WITH ORANGE JUICE Furosemide 20 Mg Tablet, 20 MG PO Q48H, (Reported) Gabapentin 400 Mg Capsule, 400 MG PO TID, (Reported) Guaifenesin/Dextromethorphan 237 Ml Liquid, 5 ML PO Q4H PRN for COUGH, (Reported) Lorazepam 0.5 Mg Tablet, 0.25 MG PO BID, (Reported) TAKE 1/2 (0.5MG) TABLET Mag Hydrox/Aluminum Hyd/Simeth 355 Ml Oral.susp, 30 ML PO Q4H PRN for INDIGESTION, (Reported) Metoprolol Succinate 25 Mg Tab.er.24h, 25 MG PO DAILY, (Reported) Mirabegron 25 Mg Tab.er.24h, 25 MG PO DAILY, (Reported) Oxybutynin Chloride 10 Mg Tab.er.24, 10 MG PO DAILY, (Reported) Pantoprazole Sodium 40 Mg Tablet.dr, 40 MG PO DAILY, (Reported) Potassium Chloride 20 Meq Tab.er.prt, 40 MEQ PO Q48H, (Reported) TAKES 2 (20MEQ) TABLETS EVERY OTHER DAY Propylene Glycol 1.5 Ml Drops, 1 DROP OU TID, (Reported) Sertraline HCl 100 Mg Tablet, 100 MG PO DAILY, (Reported) Tamsulosin HCl 0.4 Mg Cap, 0.4 MG PO DAILY 30MIN P MEAL, (Reported) TAKE 1/2 HOUR AFTER SAME MEAL Tramadol HCl 50 Mg Tablet, 50 MG PO TID, (Reported) Trazodone HCl 50 Mg Tablet, 25 MG PO HS, (Reported) TAKES 1/2 (50MG) TABLET [Flavoxate 100MG] , 100 MG PO TID PRN for BLADDER SPASMS, (Reported) Patient Home Medication List Home Medication List Reviewed: Yes Past Hmisdzv-Xjgvnv-Xfwdey Hx Family Medical History Family Hx: Cancer 09 SISTER Cancer of colon Cataract 03 MOTHER, Onset:Unknown Family history: Allergy 03 FATHER, Onset:Unknown 03 MOTHER, Onset:Unknown Family history: Arthritis 03 FATHER, Onset:Unknown 03 MOTHER, Onset:Unknown 09 SISTER, Onset:Unknown Family history: Cardiovascular disease 03 FATHER, Onset:Unknown 03 MOTHER, Onset:Unknown 09 BROTHER, Onset:Unknown 09 SISTER, Onset:Unknown Family history: Diabetes mellitus 03 MOTHER, Onset:Unknown Family history: Gastrointestinal disease 03 FATHER, Onset:Unknown Family history: Hypertension 03 MOTHER, Onset:Unknown Family history: Osteoporosis 03 MOTHER, Onset:Unknown Hearing loss 03 FATHER, Onset:Unknown Heart disease 03 FATHER, Onset:Unknown 03 MOTHER, Onset:Unknown 09 BROTHER, Onset:Unknown Hypercholesterolemia 03 MOTHER, Onset:Unknown Malignant neoplasm of lung 09 SISTER, Onset:Unknown Myocardial infarction 09 BROTHER, Onset:Unknown Parkinson's disease Stroke 03 FATHER, Onset:Unknown Thyroid disease No Family History of: Abdominal aortic aneurysm Moncure's disease Alcoholism Aphasia Chest pain Congenital heart disease Congestive heart failure Cystic fibrosis Dementia Dysphagia Family history: Alzheimer's disease Family history: Asthma Family history: Breast disease Family history: Coronary thrombosis Family history: Glaucoma Family history: Thyroid disorder Headache Hereditary disease History of - anemia History of - disorder History of - respiratory disease History of drug abuse Human immunodeficiency virus (HIV) seropositivity Infertile Kidney disease Prostate cancer Psychotic disorder Seizure disorder Tuberculosis Visual impairment Review of Systems Constitutional: no symptoms reported; No chills, No fever EENTM: hearing loss ([place]) Respiratory: no symptoms reported; No cough, No dyspnea on exertion, No short of breath Cardiovascular: No chest pain, No edema Gastrointestinal: abdominal pain (umbilical), loss of appetite; No melena, No nausea, No vomiting Genitourinary: no symptoms reported; No dysuria, No frequency, No hematuria : No Musculoskeletal: joint pain (Right knee) Skin: no symptoms reported; No lesions, No rash Psychiatric/Neurological: Other (Dementia) Physical Exam General Appearance: WD/WN, Moderate Distress HEENT: PERRL/EOMI Neck: Full Range of Motion, Normal Inspection, Non Tender, Supple Respiratory: Chest Non Tender, Lungs Clear, Normal Breath Sounds, No Accessory Muscle Use, No Respiratory Distress Cardiovascular: No Murmur, Normal Peripheral Pulses, Irregularly Irregular, Tachycardia Gastrointestinal: Normal Bowel Sounds, Soft; No Distended, No Guarding; Tenderness (umbilical pain to palpation) Back: No CVA Tenderness, No Vertebral Tenderness Extremity: Normal Capillary Refill, Normal Inspection, Other (Right knee ttp, soriano wrap removed during exam that was wrapped around right leg, no swelling or effusion present, cheikh's neg, patient will not bend knee or allow passive ROM due to pain) Neurologic/Psychiatric: Alert, envelope cutter II-XII Norm as Tested Skin: Normal Color, Warm/Dry Lymphatic: No Adenopathy Assessment/Plan Assessment and Plan Problems: (1) Umbilical hernia, incarcerated Status: Acute Assessment & Plan: laparoscopic surgery to reduce hernia. wound care. pain management meds (morphine etc). monitor for changes and infection. 06/20: Dr Arreguin for surgical management, Cardiac pre surgery eval ordered today (2) Atrial fibrillation Status: Chronic Qualifiers: Qualified Codes: I48.0 - Paroxysmal atrial fibrillation Assessment & Plan: 06/20: Afib with RVR today, Cardiology consulted and managing (3) Right knee pain Status: Acute Qualifiers: Qualified Codes: M25.561 - Pain in right knee Assessment & Plan: 06/20 Continue to monitor, Consider Xray in the AM (4) HTN (hypertension) Status: Chronic Qualifiers: Qualified Codes: I10 - Essential (primary) hypertension Assessment & Plan: 06/20: Continue home meds (5) Coronary artery disease Status: Chronic Qualifiers: Qualified Codes: I25.10 - Atherosclerotic heart disease of [place] coronary artery without angina pectoris Assessment & Plan: 06/20: s/p CABG x3 in 2015 (6) Hypoxia Status: Acute (7) H/O: CVA (cerebrovascular accident) Status: Chronic (8) DVT prophylaxis Status: Acute Assessment & Plan: - Eliquis Supervisory-Addendum Brief Verification & Attestation Participated in pt care: history, physical Personally performed: exam, history Care discussed with: Medical Student Procedures: n/a Verification and Attestation of Medical Student E/M Service A medical student performed and documented this service in my presence. I reviewed and verified all information documented by the medical student and made modifications to such information, when appropriate. I personally performed the physical exam and medical decision making. Asya Burleson, Jun 20, 2020,20:15 HENRRY RIBEIRO MED STUDENT Jun 20, 2020 11:09 ASYA BURLESON MD Jun 20, 2020 20:08
--- NOTE | 2020-06-20 11:23 | Consultation-Cardiology ---
HPI-Cardiology Cardiology Consultation: Date of Consultation 06/20/20 Time Seen by a Provider: 11:30 Date of Admission 06-19-2020 Attending Physician Libby Arreguin MD Admitting Physician Itz Chacon MD Consulting Physician Gage Torrez MD HPI: Chief Complaint: Cardiac risk for surgery Ms. Barnes is an 84 year old female who resides at [facility]. Daughter is at the bedside. Pt is in bed moaning out in pain regarding her right knee and abdominal discomfort. Daughter reports she received a phone call yesterday from [facility] reporting pt was having abdominal pain. She was brought to the ED to be evaluated and found to have an abdominal hernia. Pt denies any CP or SOB. She is not reporting any palpitations. Reports not feeling good. Review of Systems-Cardiology Review of Systems Constitutional: No chills, No fever; malaise Eyes: No vision change Ears/Nose/Throat: No recent hearing loss Respiratory: As described under HPI Cardiovascular: As described under HPI Gastrointestinal: As described under HPI Genitourinary: other (suprapubic catheter) Skin: other (fragile integrity); No rash on exposed areas, No ulcerations on exposed areas Psychiatric/Neurological: anxiety; No seizure, No focal weakness, No syncope All Other Systems Reviewed Negative Unless Noted: Yes LCS-Dycgoc-Ywihdm Hx Patient Social History Marrital Status: single Employed/Student: retired Alcohol Use: Rarely Uses Recreational Drug Use: No Smoking Status: Former Smoker Former smoker/When Quit: Feb 03, 2013 Type Used: Cigarettes 2nd Hand Smoke Exposure: No Recent Foreign Travel: No Recent Infectious Disease Expo: No Immunizations Up To Date Tetanus Booster (TDap): Unknown Date of Pneumonia Vaccine: Sep 05, 2014 Date of Influenza Vaccine: Aug 19, 2017 Past Medical History PMH As described under Assessment. Family Medical History Family Medical History: She reports fam history of DE and heart disease and hypertension and stroke, but is unable to provide details Family History: Cancer 09 SISTER Cancer of colon Cataract 03 MOTHER, Onset:Unknown Family history: Allergy 03 FATHER, Onset:Unknown 03 MOTHER, Onset:Unknown Family history: Arthritis 03 FATHER, Onset:Unknown 03 MOTHER, Onset:Unknown 09 SISTER, Onset:Unknown Family history: Cardiovascular disease 03 FATHER, Onset:Unknown 03 MOTHER, Onset:Unknown 09 BROTHER, Onset:Unknown 09 SISTER, Onset:Unknown Family history: Diabetes mellitus 03 MOTHER, Onset:Unknown Family history: Gastrointestinal disease 03 FATHER, Onset:Unknown Family history: Hypertension 03 MOTHER, Onset:Unknown Family history: Osteoporosis 03 MOTHER, Onset:Unknown Hearing loss 03 FATHER, Onset:Unknown Heart disease 03 FATHER, Onset:Unknown 03 MOTHER, Onset:Unknown 09 BROTHER, Onset:Unknown Hypercholesterolemia 03 MOTHER, Onset:Unknown Malignant neoplasm of lung 09 SISTER, Onset:Unknown Myocardial infarction 09 BROTHER, Onset:Unknown Parkinson's disease Stroke 03 FATHER, Onset:Unknown Thyroid disease No Family History of: Abdominal aortic aneurysm Augusta's disease Alcoholism Aphasia Chest pain Congenital heart disease Congestive heart failure Cystic fibrosis Dementia Dysphagia Family history: Alzheimer's disease Family history: Asthma Family history: Breast disease Family history: Coronary thrombosis Family history: Glaucoma Family history: Thyroid disorder Headache Hereditary disease History of - anemia History of - disorder History of - respiratory disease History of drug abuse Human immunodeficiency virus (HIV) seropositivity Infertile Kidney disease Prostate cancer Psychotic disorder Seizure disorder Tuberculosis Visual impairment Allergies and Home Medications Allergies Coded Allergies: Sulfa (Sulfonamide Antibiotics) (Verified Allergy, Unknown, 04/16/19) diphenhydramine HCl (Verified Allergy, Unknown, 04/16/19) hydrochlorothiazide (Unverified Allergy, Unknown, 04/16/19) varenicline tartrate (Verified Allergy, Unknown, 04/16/19) Home Medications Acetaminophen 325 Mg Tablet, 650 MG PO Q4H PRN for PAIN-MILD, (Reported) TAKES 2 (325MG) TABLETS Albuterol Sulfate 8.5 Gm Hfa.aer.ad, 2 PUFF IH Q6H PRN for SHORTNESS OF BREATH, (Reported) Apixaban 2.5 Mg Tablet, 2.5 MG PO BID, (Reported) Aspirin 81 Mg Tab.chew, 81 MG PO Q48H, (Reported) Atorvastatin Calcium 40 Mg Tablet, 40 MG PO DAILY, (Reported) Benzocaine 9 Gm Gel..gram., 1 APPLIC MM QID PRN for PAIN-MILD (1-4), (Reported) apply to gums four times a day for oral pain Budesonide/Formoterol Fumarate 10.2 Gm Hfa.aer.ad, 2 PUFF IH BID, (Reported) Bupropion HCl 300 Mg Tab.er.24h, 300 MG PO HS, (Reported) Diltiazem HCl 300 Mg Cap.er.24h, 300 MG PO DAILY, (Reported) Ferrous Sulfate 325 Mg Tablet.dr, 325 MG PO DAILY, (Reported) TAKE WITH ORANGE JUICE Furosemide 20 Mg Tablet, 20 MG PO Q48H, (Reported) Gabapentin 400 Mg Capsule, 400 MG PO TID, (Reported) Guaifenesin/Dextromethorphan 237 Ml Liquid, 5 ML PO Q4H PRN for COUGH, (Reported) Lorazepam 0.5 Mg Tablet, 0.25 MG PO BID, (Reported) TAKE 1/2 (0.5MG) TABLET Mag Hydrox/Aluminum Hyd/Simeth 355 Ml Oral.susp, 30 ML PO Q4H PRN for INDIGESTION, (Reported) Metoprolol Succinate 25 Mg Tab.er.24h, 25 MG PO DAILY, (Reported) Mirabegron 25 Mg Tab.er.24h, 25 MG PO DAILY, (Reported) Oxybutynin Chloride 10 Mg Tab.er.24, 10 MG PO DAILY, (Reported) Pantoprazole Sodium 40 Mg Tablet.dr, 40 MG PO DAILY, (Reported) Potassium Chloride 20 Meq Tab.er.prt, 40 MEQ PO Q48H, (Reported) TAKES 2 (20MEQ) TABLETS EVERY OTHER DAY Propylene Glycol 1.5 Ml Drops, 1 DROP OU TID, (Reported) Sertraline HCl 100 Mg Tablet, 100 MG PO DAILY, (Reported) Tamsulosin HCl 0.4 Mg Cap, 0.4 MG PO DAILY 30MIN P MEAL, (Reported) TAKE 1/2 HOUR AFTER SAME MEAL Tramadol HCl 50 Mg Tablet, 50 MG PO TID, (Reported) Trazodone HCl 50 Mg Tablet, 25 MG PO HS, (Reported) TAKES 1/2 (50MG) TABLET [Flavoxate 100MG] , 100 MG PO TID PRN for BLADDER SPASMS, (Reported) Patient Home Medication List Home Medication List Reviewed: Yes Physical Exam-Cardiology Physical Exam Vital Signs/I&O 06/20/20 06/20/20 06/20/20 06/20/20 03:50 06:43 08:00 08:01 Temp 36.8 36.6 Pulse 104 112 Resp 20 20 B/P (MAP) 125/67 (86) 134/72 (92) Pulse Ox 94 93 92 O2 Delivery Nasal Cannula Nasal Cannula Nasal Cannula Nasal Cannula O2 Flow Rate 3.50 3.00 4.00 3.50 06/20/20 12:40 Temp 37.0 Pulse 122 Resp 20 B/P (MAP) 139/95 (110) Pulse Ox 96 O2 Delivery Nasal Cannula O2 Flow Rate 3.50 06/20/20 00:00 Intake Total 940 ml Output Total 1265 ml Balance -325 ml Capillary Refill : Less Than 3 SecondsLess Than 3 Seconds Constitutional: AAO x 3, well-developed, well-nourished HEENT: hearing is well preserved, oral hygience is good Neck: No carotid bruit; carotid pulses are 2 + bilaterally Respiratory: No accessory muscle use, No respiratory distress; other (good air entry) Cardiovascular: irregularly irregular; No JVD; S1 and S2, systolic murmur Gastrointestinal: tender, round, distended, audible bowel sounds Genital/Rectal: other (suprapubic catheter) Extremities: no lower extremity edema bilateral Neurologic/Psychiatric: grossly intact (moves all extremities) Skin: normal color, warm/dry Data Review Labs Microbiology 06/19/20 MRSA Screen - Final, Complete MRSA not isolated 06/18/20 Urine Culture - Final, Complete 3 or more isolates 06/18/20 Blood Culture - Preliminary, Resulted No growth Radiology NAME: [facility]UL[facility]ES [facility] REC#: [id number] PT STATUS: REG ER : 1935 PHYSICIAN: TARA SOTO MD ADMIT DATE: 06/18/20/ER Signed Date of Exam:06/18/20 CT ABDOMEN/PELVIS W EXAMINATION: CT Abdomen and Pelvis with intravenous contrast. TECHNIQUE: Multiple contiguous axial images were obtained through the abdomen and pelvis after the uneventful administration of intravenous contrast. All CT scans use one or more of the following dose optimizing techniques: automated exposure control, MA and/or KvP adjustment based on a patient size and exam type, or iterative reconstruction. HISTORY: Lower abdominal pain. COMPARISON: 04/16/2019 FINDINGS: Limited views of the lower thorax show mild reticulations consistent with mild nonspecific fibrosis. Coronary arteries are calcified. The liver is normal without focal lesion. There is no biliary ductal dilation. Gallbladder is normal. Pancreas is normal. Spleen is normal. Adrenal glands are normal. There are small cysts in both kidneys. No suspicious renal lesions. There is no hydronephrosis. Bladder is decompressed by suprapubic catheter. Visualized bowel is normal in caliber without obstruction or inflammation. There is a large duodenal diverticulum. There is a fat-containing umbilical hernia. It appears similar to prior exam. No free fluid or air. No abdominal or pelvic lymphadenopathy. There is a stable 4.2 cm abdominal aortic aneurysm. 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 Right superficial femoral artery is occluded past its origin. There are no suspicious osseous lesions. There is a right total hip arthroplasty. There is a chronic L3 compression fracture which is mild. IMPRESSION: 1. Fat-containing umbilical hernia is unchanged. 2. Stable 4.2 cm abdominal aortic aneurysm and right common iliac artery aneurysm. Dictated by: Dictated on workstation # [id number] Dict: 06/18/20 1155 Trans: 06/18/20 1204 [facility] [id number] Interpreted by: EVELINE BLANCO MD Electronically signed by: EVELINE BLANCO MD 06/18/20 1208 ECG Impression ECG Initial ECG Impression: Atrial Fibrillation A/P-Cardiology Assessment/Admission Diagnosis Abdominal pain with umbilical hernia - management per surgical services H/O GI bleed with hypovolemic shock during hospitalization of April 16, 2019. GI bleed due to a bleeding prepyloric ulcer (managed by Dr. Lemus) - no recurrence Severe bilateral ICA stenoses; s/p R CEA with Dr Valenzuela at [facility] in Dec 2017; s/p L carotid PCI at [facility] in January 2018 (Dr Valenzuela) Chronic dyspnea likely multi-factorial: COPD and diastolic dysfunction and physical deconditioning. Prolonged hospitalization post-CABG for physical deconditioning in 2014 Chronic atrial fib, first documented on an ECG of 09/27/17 at [facility], rate currently fairly well controlled Eliquis for stroke prophylaxis H/o old lacunar infarction, including R internal capsule (based on w/u of Dec 2017 at [facility]) S/P right hip replacement Fall due to loss of balance (tripped over walker), no syncope, on 03/10/15 Chronic diastolic CHF CAD - s/p [address] Maza at [facility] in : GREY to LAD, SVG to OM1 and SVG to PDA. Cardiac cath of Oct 15, 2017 (done following an MPI that showed apical ischemia) showed widely patent aortocoronary graft to the distal RCA, widely patent aortocoronary graft to OM system, widely patent left internal mammary artery graft to the distal LAD, normal to hyperdynamic LV systolic function with an ejection fraction of approx 70%, normal LVEDP, no evidence of thoracic aortic aneurysm or dissection, mod-sized infrarenal abdominal aortic aneurysm, mild prox stenosis of the left renal artery. For which she has been maintained on ASA and Plavix Peripheral angiogram with runoffs of March 2018: Moderate-sized, infrarenal, saccular abdominal aortic aneurysm. A 70% ostial and proximal stenoses of the renal arteries on both sides. 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 Proximal occlusion of the right superficial femoral artery which reconstitutes via collaterals in its distal portion. There is a 2- vessel runoff in the leg. Multiple up to 75% stenoses in the mid and distal portions of the left superficial femoral artery. For these findings she was referred to [facility] Echo of 03/05/18 showed LVEF 75-80%, grade 3 mcqueen dysfunction, PASP 45 mmHg, mod biatrial enlargement AoV sclerosis, and mild to mod TR COPD Tobaccoism, quit 2009 HTN H/o hypothyroidism that is followed by her fam phy S/P suprapubic catheter placement per Dr. James on 11-26-2017 Discussion and Recomendations We advise stress test to better define surgical risk of ok from surgical stand point, because based on her previous coronary work up as documented above we feel her risk for non-cardiac surgery is high. We have discussed with patient and family her risk and cardiac issues as noted above. They wish to further discuss with Dr. Arreguin. We advise continuation of BB perioperatively We advise continuation of anti-platelet tx d/t known h/o PAD, CAD and carotid dz We advise continue of OAC d/t chronic a-fib for stroke prophylaxis We advise close monitoring of lab We advise replacement of electrolytes as indicated Further recs will be base on her hospital course We would like to thank Dr. Culp for this consult Clinical Quality Measures DVT/VTE Risk/Contraindication: Risk Factor Score Per Nursin RFS Level Per Nursing on Admit: 4+=Very High SATHISH ABAD Jun 20, 2020 11:23
--- NOTE | 2020-06-20 11:43 | NUR ---
SATHISH ABAD HERE AND ASSESSED PT. PTS FAMILY HERE AND REQUESTS FURTHER CARDIAC TESTING PRIOR TO OR IF POSSIBLE. DR. ETIENNE NOTIFIED. OR CANCELLED FOR TODAY. SURGERY NOTIFIED. SATHISH ABAD NOTIFIED.
[2020-06-20 12:40] VITALS: BP 139/95
--- NOTE | 2020-06-20 13:01 | Consultation-Cardiology ---
HPI-Cardiology Cardiology Consultation: Date of Consultation 06/20/20 Time Seen by a Provider: 12:00 Date of Admission Attending Physician Libby Arreguin MD Admitting Physician Itz Chacon MD Consulting Physician CHELLE GOETZ MD, MA, FACP, FACC, [facility], CCDS HPI: Chief Complaint: Reason for Cardiology consultation: Eval of cardiac risk for surgery HPI Ms. Barnes is an 84 year old female who resides at [facility]. Daughter is at the bedside. Pt is in bed moaning out in pain regarding her right knee and abdominal discomfort. Daughter reports she received a phone call yesterday from [facility] reporting pt was having abdominal pain. She was brought to the ED to be evaluated and found to have an abdominal hernia. Pt denies any CP or SOB. She is not reporting any palpitations. Reports not feeling good. Review of Systems-Cardiology Review of Systems Constitutional: No chills, No fever; malaise, tiredness; No weight loss Eyes: No vision change Ears/Nose/Throat: No recent hearing loss Respiratory: As described under HPI Cardiovascular: As described under HPI Gastrointestinal: As described under HPI Genitourinary: other (suprapubic catheter) Skin: other (fragile integrity); No rash on exposed areas, No ulcerations on exposed areas Psychiatric/Neurological: anxiety; No seizure, No focal weakness, No syncope All Other Systems Reviewed Negative Unless Noted: Yes WQE-Asiuoc-Xksreu Hx Patient Social History Marrital Status: single Employed/Student: retired Alcohol Use: Rarely Uses Recreational Drug Use: No Smoking Status: Former Smoker Former smoker/When Quit: Feb 03, 2013 Type Used: Cigarettes 2nd Hand Smoke Exposure: No Recent Foreign Travel: No Recent Infectious Disease Expo: No Immunizations Up To Date Tetanus Booster (TDap): Unknown Date of Pneumonia Vaccine: Sep 05, 2014 Date of Influenza Vaccine: Aug 19, 2017 Past Medical History PMH As described under Assessment. Family Medical History Family Medical History: She reports fam history of OK and heart disease and hypertension and stroke, but is unable to provide details Family History: Cancer 09 SISTER Cancer of colon Cataract 03 MOTHER, Onset:Unknown Family history: Allergy 03 FATHER, Onset:Unknown 03 MOTHER, Onset:Unknown Family history: Arthritis 03 FATHER, Onset:Unknown 03 MOTHER, Onset:Unknown 09 SISTER, Onset:Unknown Family history: Cardiovascular disease 03 FATHER, Onset:Unknown 03 MOTHER, Onset:Unknown 09 BROTHER, Onset:Unknown 09 SISTER, Onset:Unknown Family history: Diabetes mellitus 03 MOTHER, Onset:Unknown Family history: Gastrointestinal disease 03 FATHER, Onset:Unknown Family history: Hypertension 03 MOTHER, Onset:Unknown Family history: Osteoporosis 03 MOTHER, Onset:Unknown Hearing loss 03 FATHER, Onset:Unknown Heart disease 03 FATHER, Onset:Unknown 03 MOTHER, Onset:Unknown 09 BROTHER, Onset:Unknown Hypercholesterolemia 03 MOTHER, Onset:Unknown Malignant neoplasm of lung 09 SISTER, Onset:Unknown Myocardial infarction 09 BROTHER, Onset:Unknown Parkinson's disease Stroke 03 FATHER, Onset:Unknown Thyroid disease No Family History of: Abdominal aortic aneurysm Robert's disease Alcoholism Aphasia Chest pain Congenital heart disease Congestive heart failure Cystic fibrosis Dementia Dysphagia Family history: Alzheimer's disease Family history: Asthma Family history: Breast disease Family history: Coronary thrombosis Family history: Glaucoma Family history: Thyroid disorder Headache Hereditary disease History of - anemia History of - disorder History of - respiratory disease History of drug abuse Human immunodeficiency virus (HIV) seropositivity Infertile Kidney disease Prostate cancer Psychotic disorder Seizure disorder Tuberculosis Visual impairment Allergies and Home Medications Allergies Coded Allergies: Sulfa (Sulfonamide Antibiotics) (Verified Allergy, Unknown, 04/16/19) diphenhydramine HCl (Verified Allergy, Unknown, 04/16/19) hydrochlorothiazide (Unverified Allergy, Unknown, 04/16/19) varenicline tartrate (Verified Allergy, Unknown, 04/16/19) Home Medications Acetaminophen 325 Mg Tablet, 650 MG PO Q4H PRN for PAIN-MILD, (Reported) TAKES 2 (325MG) TABLETS Albuterol Sulfate 8.5 Gm Hfa.aer.ad, 2 PUFF IH Q6H PRN for SHORTNESS OF BREATH, (Reported) Apixaban 2.5 Mg Tablet, 2.5 MG PO BID, (Reported) Aspirin 81 Mg Tab.chew, 81 MG PO DAILY, (Reported) Atorvastatin Calcium 40 Mg Tablet, 40 MG PO HS, (Reported) Benzocaine 9 Gm Gel..gram., 1 APPLIC MM QID PRN for PAIN-MILD (1-4), (Reported) apply to gums four times a day for oral pain Budesonide/Formoterol Fumarate 10.2 Gm Hfa.aer.ad, 2 PUFF IH BID, (Reported) Bupropion HCl 300 Mg Tab.er.24h, 300 MG PO HS, (Reported) Diltiazem HCl 300 Mg Cap.er.24h, 300 MG PO DAILY, (Reported) Ferrous Sulfate 325 Mg Tablet, 325 MG PO DAILY, (Reported) Furosemide 20 Mg Tablet, 20 MG PO Q48H, (Reported) Gabapentin 400 Mg Capsule, 400 MG PO TID, (Reported) Guaifenesin/Dextromethorphan 237 Ml Liquid, 5 ML PO Q4H PRN for COUGH, (Reported) Lorazepam 0.5 Mg Tablet, 0.25 MG PO BID, (Reported) Mag Hydrox/Aluminum Hyd/Simeth 355 Ml Oral.susp, 30 ML PO Q4H PRN for INDIGESTION, (Reported) Metoprolol Succinate 25 Mg Tab.er.24h, 25 MG PO DAILY, (Reported) Mirabegron 25 Mg Tab.er.24h, 25 MG PO DAILY, (Reported) Oxybutynin Chloride 10 Mg Tab.er.24, 10 MG PO DAILY, (Reported) Pantoprazole Sodium 40 Mg Tablet.dr, 40 MG PO DAILY, (Reported) Potassium Chloride 20 Meq Tab.er.prt, 40 MEQ PO Q48H, (Reported) TAKES 2 (20MEQ) TABLETS EVERY OTHER DAY WITH FUROSEMIDE Propylene Glycol 1.5 Ml Drops, 1 DROP OP TID, (Reported) one drop both eyes three times a day for dry eyes Sertraline HCl 100 Mg Tablet, 100 MG PO DAILY, (Reported) Tamsulosin HCl 0.4 Mg Cap, 0.4 MG PO DAILY, (Reported) Tramadol HCl 50 Mg Tablet, 50 MG PO TID, (Reported) Trazodone HCl 50 Mg Tablet, 25 MG PO HS, (Reported) TAKES 1/2 (50MG) TABLET [Flavoxate 100MG] , 100 MG PO TID PRN for BLADDER SPASMS, (Reported) Patient Home Medication List Home Medication List Reviewed: Yes Physical Exam-Cardiology Physical Exam Vital Signs/I&O 06/20/20 06/20/20 06/20/20 06/20/20 02:40 03:50 06:43 08:00 Temp 36.8 Pulse 104 Resp 20 B/P (MAP) 125/67 (86) Pulse Ox 90 94 93 O2 Delivery Nasal Cannula Nasal Cannula Nasal Cannula Nasal Cannula O2 Flow Rate 3.00 3.50 3.00 4.00 06/20/20 06/20/20 08:01 12:40 Temp 36.6 37.0 Pulse 112 122 Resp 20 20 B/P (MAP) 134/72 (92) 139/95 (110) Pulse Ox 92 96 O2 Delivery Nasal Cannula Nasal Cannula O2 Flow Rate 3.50 3.50 06/20/20 00:00 Intake Total 940 ml Output Total 1265 ml Balance -325 ml Capillary Refill : Less Than 3 SecondsLess Than 3 Seconds Constitutional: AAO x 3, well-developed, well-nourished HEENT: hearing is well preserved, oral hygience is good Neck: No carotid bruit; carotid pulses are 2 + bilaterally Respiratory: No accessory muscle use, No respiratory distress; other (good air entry) Cardiovascular: irregularly irregular; No JVD; S1 and S2, systolic murmur Gastrointestinal: tender, round, distended, audible bowel sounds Genital/Rectal: other (suprapubic catheter) Extremities: no lower extremity edema bilateral Neurologic/Psychiatric: other (moves all limbs equally) Skin: normal color, warm/dry; No rash on exposed areas, No ulcerations on exposed areas Data Review Labs Laboratory Tests 06/19/20 13:50: Microbiology 06/19/20 MRSA Screen - Final, Complete MRSA not isolated 06/18/20 Urine Culture - Final, Complete 3 or more isolates 06/18/20 Blood Culture - Preliminary, Resulted No growth Laboratory Tests 06/19/20 05:00 A/P-Cardiology Assessment/Admission Diagnosis Abdominal pain and umbilical hernia - management per Surgical services CAD - s/p [address] Maza at [facility] in : GREY to LAD, SVG to OM1 and SVG to PDA. Cardiac cath of Oct 15, 2017 (done following an MPI that showed apical ischemia) showed widely patent aortocoronary graft to the distal RCA, widely patent aortocoronary graft to OM system, widely patent left internal mammary artery graft to the distal LAD, normal to hyperdynamic LV systolic function with an ejection fraction of approx 70%, normal LVEDP, no evidence of thoracic aortic aneurysm or dissection, mod-sized infrarenal abdominal aortic aneurysm, mild prox stenosis of the left renal artery H/O GI bleed with hypovolemic shock during hospitalization of April 16, 2019. GI bleed due to a bleeding prepyloric ulcer (managed by Dr. Lemus) - no recurrence Carotid arterial disease; s/p R CEA with Dr Valenzuela at [facility] in Dec 2017; s/p L carotid PCI at [facility] in January 2018 (Dr Valenzuela). Mild carotid arterial disease on carotid u/s of Nov 2019 Chronic dyspnea likely multi-factorial: COPD and diastolic dysfunction and physical deconditioning. Prolonged hospitalization post-CABG for physical deconditioning in 2014 Chronic atrial fib, first documented on an ECG of 09/27/17 at [facility], rate currently fairly well controlled Eliquis for stroke prophylaxis H/o old lacunar infarction, including R internal capsule (based on w/u of Dec 2017 at [facility]) S/P right hip replacement Fall due to loss of balance (tripped over walker), no syncope, on 03/10/15 Chronic diastolic CHF Peripheral angiogram with runoffs of March 2018: Moderate-sized, infrarenal, saccular abdominal aortic aneurysm. A 70% ostial and proximal stenoses of the renal arteries on both sides. 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 Proximal occlusion of the right superficial femoral artery which reconstitutes via collaterals in its distal portion. There is a 2-vessel runoff in the leg. Multiple up to 75% stenoses in the mid and distal portions of the left superficial femoral artery. For these findings she was referred to [facility] Echo of 03/05/18 showed LVEF 75-80%, grade 3 mcqueen dysfunction, PASP 45 mmHg, mod biatrial enlargement AoV sclerosis, and mild to mod TR COPD Tobaccoism, quit 2009 HTN H/o hypothyroidism that is followed by her fam phy S/P suprapubic catheter placement per Dr. James on 11-26-2017 Discussion and Recomendations We had a long and detailed discussion with the patient and her daughter regarding patient's CV issues and her cardiac risk Given h/o CAD and ch diastolic CHF, we recommend MPI for cor eval and echo to eval for structural heart disease Dr Arreguin has indicated that she had incarceration of hernia at presentation that has been reduced and it is ok to proceed with preop cardiac risk strat We advise close monitoring of lab We advise replacement of electrolytes as indicated Further recs will be base on her hospital course We would like to thank Dr. Culp for this consult Clinical Quality Measures DVT/VTE Risk/Contraindication: Risk Factor Score Per Nursin RFS Level Per Nursing on Admit: 4+=Very High CHELLE GOETZ MD FACP FAC CCDS Jun 20, 2020 13:01
[2020-06-20] MEDS ORDERED: FERR325T5 PO (13:03)
[2020-06-20] MEDS ORDERED: LORA-404 PO (13:03)
--- NOTE | 2020-06-20 13:06 | NUR ---
I WENT THROUGH THE PHYSICIAN'S ORDERS FROM [facility] TO COMPLETE THIS MED REC. OTC: TYLENOL ASPIRIN FERROUS SULFATE ERA CHAPA
[2020-06-20] MEDS ORDERED: REGADENOSON 0.4 MG/5 ML SYR (LEXISCAN) IV ONE (13:15)
--- NOTE | 2020-06-20 13:45 | NUR ---
TG SCHEDULED FOR TOMORROW. 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 FAXED ADD ON.
--- NOTE | 2020-06-20 15:23 | NUR ---
PATIENT DID NOT GET HER 1500 SVN BREATHING TX DUE TO SHE STATED SHE DIDN'T WANT IT BECAUSE SHE NEEDED TO EAT RIGHT NOW
[2020-06-20 15:52] VITALS: BP 145/83
--- NOTE | 2020-06-20 16:47 | Progress Note ---
Subjective Date Seen by a Provider: Jun 20, 2020 Time Seen by a Provider: 16:00 Subjective/Events-last exam doing ok. will need cardiac workup before proceeding with surgery. pain controlled. Focused Exam Lactate Level 06/18/20 10:40: Lactic Acid Level 1.27 Objective Exam Vital Signs Date Time Temp Pulse Resp B/P (MAP) Pulse Ox O2 Delivery O2 Flow Rate FiO2 06/20/20 15:52 36.1 142 16 145/83 (103) 95 Nasal Cannula 3.50 06/20/20 15:21 90 Nasal Cannula 3.00 06/20/20 12:40 37.0 122 20 139/95 (110) 96 Nasal Cannula 3.50 06/20/20 08:01 36.6 112 20 134/72 (92) 92 Nasal Cannula 3.50 06/20/20 08:00 Nasal Cannula 4.00 06/20/20 06:43 93 Nasal Cannula 3.00 06/20/20 03:50 36.8 104 20 125/67 (86) 94 Nasal Cannula 3.50 06/20/20 02:40 90 Nasal Cannula 3.00 06/20/20 00:00 36.6 115 22 130/71 (90) 91 Nasal Cannula 3.50 06/19/20 22:48 92 Nasal Cannula 3.00 06/19/20 20:20 Nasal Cannula 3.00 06/19/20 19:22 36.2 103 21 119/75 (90) 92 Nasal Cannula 3.50 06/19/20 19:02 93 Nasal Cannula 3.50 06/19/20 16:50 37.3 87 20 115/65 (82) 92 Nasal Cannula 2.00 I & O 06/20/20 07:00 Intake Total 1940 ml Output Total 1565 ml Balance 375 ml Capillary Refill : Less Than 3 SecondsLess Than 3 Seconds General Appearance: No Apparent Distress HEENT: PERRL/EOMI Neck: Full Range of Motion Respiratory: Chest Non Tender, Decreased Breath Sounds Cardiovascular: Regular Rate, Rhythm Gastrointestinal: normal bowel sounds, soft, tenderness Extremity: Normal Capillary Refill Neurologic/Psychiatric: Alert, Oriented x3 Skin: Normal Color Lymphatic: No Adenopathy Results Lab Microbiology 06/19/20 MRSA Screen - Final, Complete MRSA not isolated 06/18/20 Urine Culture - Final, Complete 3 or more isolates 06/18/20 Blood Culture - Preliminary, Resulted No growth Assessment/Plan Assessment/Plan Assess & Plan/Chief Complaint sx non-reducible umbilical hernia. appears to have some level of underlying dementia. will undergo cardiac workup before undergoing any surgery. Clinical Quality Measures DVT/VTE Risk/Contraindication: Risk Factor Score Per Nursin RFS Level Per Nursing on Admit: 4+=Very High LES ETIENNE MD Jun 20, 2020 16:47
--- NOTE | 2020-06-20 17:26 | NUR ---
MS 4MG IV FOR RT KNEE PAIN.
--- NOTE | 2020-06-20 18:33 | NUR ---
PT NOTED TO HAVE CONSISTENT HR 140-150. DENIES PAIN. HR IRREGULAR. DR. BURLESON NOTIFIED.
--- NOTE | 2020-06-20 18:58 | NUR ---
RESTING WITHOUT C/O. HR CONTINUES 140'S. DR. BURLESON AGAIN NOTIFIED. ORDER FOR STAT EKG AND TO CONTACT DR. GOETZ. DR. GOETZ PAGED.
[2020-06-20] MEDS ORDERED: APIXABAN 2.5 MG (ELIQUIS) TABLET PO SCH (19:15)
[2020-06-20] MEDS ORDERED: APIXABAN 2.5 MG (ELIQUIS) TABLET PO ONE (19:15)
[2020-06-20 19:48] VITALS: BP 144/99
[2020-06-20] MEDS: ALPRAZolam 0.25 MG (XANAX) TAB PO PRN (20:04)
[2020-06-20] MEDS: ASPIRIN 81 MG CHEW (CHILDREN'S ASA) PO SCH (20:04)
[2020-06-21] MEDS: morphine INJ 4 MG/ML 1 ML (VIAL/SYRINGE) IVP PRN ×4 (00:21→20:53)
[2020-06-21] MEDS: ALPRAZolam 0.25 MG (XANAX) TAB PO PRN ×2 (00:49→17:20)
[2020-06-21] MEDS: HYDROcodone/APAP 7.5 MG/325 MG (LORTAB, LORCET PLUS) TABLET PO PRN ×2 (00:50→17:20)
[2020-06-21 00:58] VITALS: BP 134/80
--- NOTE | 2020-06-21 01:45 | NUR ---
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 CO2 MONITOR DISCONTINUED PER RESPIRATORY THERAPY. PT SWITCHED TO A REGULAR NASAL CANNULA WITH 3L 02 AT THIS TIME.
[2020-06-21] MEDS: LACTATED RINGERS 1,000 ML IV SCH ×2 (03:57→22:14)
[2020-06-21 04:49] VITALS: BP 109/71
[2020-06-21 06:06] LABS: BASOPHILS % (AUTO) 0 % (0-10); EOSINOPHILS % (AUTO) 0 % (0-10); HEMATOCRIT 38 % (35-52); HEMOGLOBIN 12.2 G/DL (11.5-16.0); LYMPHOCYTES # (AUTO) 1.2 X 10^3 (1.0-4.0); LYMPHOCYTES % (AUTO) 11 % (12-44); MEAN CORPUSCULAR HEMOGLOBIN 29 PG (25-34); MEAN CORPUSCULAR HGB CONC 32 G/DL (32-36); MEAN CORPUSCULAR VOLUME 90 FL (80-99); MEAN PLATELET VOLUME 10.3 FL (7.4-10.4); MONOCYTES # (AUTO) 1.3 X 10^3 (0.0-1.0); MONOCYTES % (AUTO) 12 % (0-12); NEUTROPHILS # (AUTO) 8.6 X 10^3 (1.8-7.8); NEUTROPHILS % (AUTO) 77 % (42-75); PLATELET COUNT 206 10^3/uL (130-400); RED CELL DISTRIBUTION WIDTH 16.8 % (10.0-14.5); WHITE BLOOD COUNT 11.2 10^3/uL (4.3-11.0)
[2020-06-21 06:24] LABS: ALANINE AMINOTRANSFERASE 12 U/L (0-55); ALBUMIN 3.3 GM/DL (3.2-4.5); ALKALINE PHOSPHATASE 67 U/L (40-136); BILIRUBIN,TOTAL 0.8 MG/DL (0.1-1.0); BUN/CREATININE RATIO 15; CALCIUM 8.6 MG/DL (8.5-10.1); CARBON DIOXIDE 25 MMOL/L (21-32); CHLORIDE 104 MMOL/L (98-107); CREATININE SERUM 0.66 MG/DL (0.60-1.30); GFR ESTIMATED > 60; GLUCOSE 122 MG/DL (70-105); POTASSIUM 3.7 MMOL/L (3.6-5.0); SODIUM 138 MMOL/L (135-145); TOTAL PROTEIN 6.1 GM/DL (6.4-8.2)
[2020-06-21] MEDS: RT-ALBUTEROL SULF 2.5 MG/3 ML PRE-MIX VIAL INH SCH ×4 (06:58→19:32)
[2020-06-21 08:00] VITALS: BP 118/60
[2020-06-21] MEDS: LEVOFLOXACIN 500 MG/100 ML IV 100 ML IV SCH (09:04)
[2020-06-21] MEDS: APIXABAN 2.5 MG (ELIQUIS) TABLET PO SCH ×2 (09:04→20:53)
--- NOTE | 2020-06-21 10:24 | NUR ---
PRIOR TO A.M. MEDICATIONS PULSE WAS 110 B/P WAS 118/60.
--- NOTE | 2020-06-21 11:35 | Diagnostic Imaging Report ---
PROCEDURE: US right lower extremity venous. TECHNIQUE: Multiple real-time grayscale images were obtained over the right lower extremity in various projections. Additional spectral analysis and color Doppler duplex images were also obtained. INDICATION: Posterior right knee pain. FINDINGS: Color Doppler imaging shows normal blood flow throughout the right lower extremity venous system from the external iliac vein throughout to the ankle. Calf compression showed normal augmentation of flow at the popliteal level. No evidence of popliteal cyst. IMPRESSION: No evidence of venous thrombosis. Dictated by: Dictated on workstation # [id number]
[2020-06-21] MEDS ORDERED: CATHETER FLUSH 10 ML SYR IV PRN (11:45)
--- NOTE | 2020-06-21 12:12 | Progress Note ---
HENRRY RIBEIRO MED STUDENT 06/21/20 1212: Subjective Subjective/Events-last exam Pt has had no changes since yesterday. Pt hadn't had food since last night. no BM today. Pt is still non ambulatory. Pt complains of pain and tenderness on belly and R leg. Moving the leg brings immense pain. Focused Exam Respiratory: Lungs Clear Cardiovascular: Regular Rate, Rhythm Objective Exam Last Set of Vital Signs Vital Signs Date Time Temp Pulse Resp B/P (MAP) Pulse Ox O2 Delivery O2 Flow Rate FiO2 06/21/20 10:24 94 Nasal Cannula 1.50 06/21/20 08:00 36.2 110 16 118/60 (79) Capillary Refill : Less Than 3 SecondsLess Than 3 Seconds I&O Intake and Output 06/21/20 00:00 Intake Total 1150 ml Output Total 1600 ml Balance -450 ml Intake Oral 150 ml IV Total 1000 ml Output Urine Total 1600 ml General: Alert, Oriented X3, Cooperative HEENT: Atraumatic Lungs: Clear to Auscultation Results/Procedures Lab Laboratory Tests 06/21/20 05:05: White Blood Count 11.2H, Red Blood Count 4.20L, Hemoglobin 12.2, Hematocrit 38, Mean Corpuscular Volume 90, Mean Corpuscular Hemoglobin 29, Mean Corpuscular Hemoglobin Concent 32, Red Cell Distribution Width 16.8H, Platelet Count 206, Mean Platelet Volume 10.3, Neutrophils (%) (Auto) 77H, Lymphocytes (%) (Auto) 11L, Monocytes (%) (Auto) 12, Eosinophils (%) (Auto) 0, Basophils (%) (Auto) 0, Neutrophils # (Auto) 8.6H, Lymphocytes # (Auto) 1.2, Monocytes # (Auto) 1.3H, Eosinophils # (Auto) 0.0, Basophils # (Auto) 0.0, Sodium Level 138, Potassium Level 3.7, Chloride Level 104, Carbon Dioxide Level 25, Anion Gap 9, Blood Urea Nitrogen 10, Creatinine 0.66, Estimat Glomerular Filtration Rate > 60, BUN/Creatinine Ratio 15, Glucose Level 122H, Calcium Level 8.6, Corrected Calcium 9.2, Total Bilirubin 0.8, Aspartate Amino Transf (AST/SGOT) 14, Alanine Aminotransferase (ALT/SGPT) 12, Alkaline Phosphatase 67, Total Protein 6.1L, Albumin 3.3 Microbiology 8/2/20 MRSA Screen - Final, Complete MRSA not isolated 06/18/20 Urine Culture - Final, Complete 3 or more isolates 06/18/20 Blood Culture - Preliminary, Resulted No growth Radiology NAME: JULES REYES [facility] REC#: [id number] PT STATUS: REG ER : 1935 PHYSICIAN: TARA SOTO MD ADMIT DATE: 06/18/20/ER Signed Date of Exam:06/18/20 CT ABDOMEN/PELVIS W EXAMINATION: CT Abdomen and Pelvis with intravenous contrast. TECHNIQUE: Multiple contiguous axial images were obtained through the abdomen and pelvis after the uneventful administration of intravenous contrast. All CT scans use one or more of the following dose optimizing techniques: automated exposure control, MA and/or KvP adjustment based on a patient size and exam type, or iterative reconstruction. HISTORY: Lower abdominal pain. COMPARISON: 04/16/2019 FINDINGS: Limited views of the lower thorax show mild reticulations consistent with mild nonspecific fibrosis. Coronary arteries are calcified. The liver is normal without focal lesion. There is no biliary ductal dilation. Gallbladder is normal. Pancreas is normal. Spleen is normal. Adrenal glands are normal. There are small cysts in both kidneys. No suspicious renal lesions. There is no hydronephrosis. Bladder is decompressed by suprapubic catheter. Visualized bowel is normal in caliber without obstruction or inflammation. There is a large duodenal diverticulum. There is a fat-containing umbilical hernia. It appears similar to prior exam. No free fluid or air. No abdominal or pelvic lymphadenopathy. There is a stable 4.2 cm abdominal aortic aneurysm. 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 Right superficial femoral artery is occluded past its origin. There are no suspicious osseous lesions. There is a right total hip arthroplasty. There is a chronic L3 compression fracture which is mild. IMPRESSION: 1. Fat-containing umbilical hernia is unchanged. 2. Stable 4.2 cm abdominal aortic aneurysm and right common iliac artery aneurysm. Dictated by: Dictated on workstation # [id number] Dict: 06/18/20 1155 Trans: 06/18/20 1204 [facility] [id number] Interpreted by: EVELINE BLANCO MD Electronically signed by: EVELINE BLANCO MD 06/18/20 1204 Assessment/Plan Assessment/Plan Admission Dx incarcerated umbilical hernia Assessment & Plan get US of R leg to make sure no clot has formed. Clinical Quality Measures DVT/VTE Risk/Contraindication: Risk Factor Score Per Nursin RFS Level Per Nursing on Admit: 4+=Very High ASYA BURLESON MD 06/21/201: Subjective Review of Systems Pulmonary: No Dyspnea, No Cough Cardiovascular: No: Chest Pain, Palpitations Gastrointestinal: No: Nausea, Vomiting, Abdominal Pain Musculoskeletal: leg pain (Right) Neurological: Weakness, Incoordination Objective Exam General: Alert, Oriented X3, Cooperative Lungs: Clear to Auscultation, Normal Air Movement Heart: Regular Rate, No Murmurs Abdomen: Normal Bowel Sounds, Soft, No Tenderness, No Masses Extremities: Other (Right leg ttp to light touch, cap refill 2secs) Skin: No Rashes, No Breakdown Neuro: Normal Speech, Sensation Intact, Cranial Nerves 3-12 NL Psych/Mental Status: Other (anxious and crying ) Assessment/Plan Assessment/Plan (1) Umbilical hernia, incarcerated Status: Acute Assessment & Plan: 06/21: Plan per Dr Arreguin, awaiting pre surgical evaluation (2) Atrial fibrillation Status: Chronic Assessment & Plan: 06/21: Appreciate Dr Torrez seeing patient for preop evaluation Qualifiers: Qualified Codes: I48.0 - Paroxysmal atrial fibrillation (3) Coronary artery disease Status: Chronic Qualifiers: Qualified Codes: I25.10 - Atherosclerotic heart disease of [place] coronary artery without angina pectoris (4) Right knee pain Status: Acute Assessment & Plan: 06/21: Venous dopplers neg today, patient with h/o arterial disease and was referred to [facility] Qualifiers: Qualified Codes: M25.561 - Pain in right knee (5) HTN (hypertension) Status: Chronic Qualifiers: Qualified Codes: I10 - Essential (primary) hypertension (6) H/O: CVA (cerebrovascular accident) Status: Chronic (7) Hypoxia Status: Acute Assessment & Plan: - Continue to titrate as tolerated (8) DVT prophylaxis Status: Acute Assessment & Plan: - Patient on Eliquis, plan to d/c 48hrs prior to surgery HENRRY RIBEIRO MED STUDENT Jun 21, 2020 12:12 ASYA BURLESON MD Jun 21, 2020 21:51
[2020-06-21] MEDS ORDERED: REGADENOSON 0.4 MG/5 ML SYR (LEXISCAN) IV ONE (12:30)
--- NOTE | 2020-06-21 12:47 | Progress Note ---
Subjective Date Seen by a Provider: Jun 21, 2020 Time Seen by a Provider: 12:00 Subjective/Events-last exam undergoing stress test. has pain but continuously complains of pain all over. Objective Exam Vital Signs Date Time Temp Pulse Resp B/P (MAP) Pulse Ox O2 Delivery O2 Flow Rate FiO2 06/21/20 10:24 94 Nasal Cannula 1.50 06/21/20 08:00 94 Nasal Cannula 2.00 06/21/20 08:00 36.2 110 16 118/60 (79) 93 Nasal Cannula 3.50 06/21/20 06:58 94 Nasal Cannula 2.00 06/21/20 04:49 36.2 91 20 109/71 (84) 96 Nasal Cannula 3.50 06/21/20 00:58 36.4 96 18 134/80 (98) 92 Nasal Cannula 3.50 06/20/20 21:27 95 Nasal Cannula 3.00 06/20/20 20:00 Nasal Cannula 3.00 06/20/20 19:48 36.4 131 20 144/99 (114) 96 Nasal Cannula 3.50 06/20/20 18:28 93 Nasal Cannula 3.00 06/20/20 15:52 36.1 142 16 145/83 (103) 95 Nasal Cannula 3.50 06/20/20 15:21 90 Nasal Cannula 3.00 I & O 06/21/20 07:00 Intake Total 1250 ml Output Total 1550 ml Balance -300 ml Capillary Refill : Less Than 3 SecondsLess Than 3 Seconds General Appearance: No Apparent Distress HEENT: PERRL/EOMI Neck: Full Range of Motion Respiratory: Chest Non Tender, Lungs Clear, Decreased Breath Sounds Gastrointestinal: normal bowel sounds, soft, tenderness Extremity: Normal Capillary Refill Neurologic/Psychiatric: Alert Skin: Normal Color Lymphatic: No Adenopathy Results Lab Laboratory Tests 06/21/20 05:05: White Blood Count 11.2H, Red Blood Count 4.20L, Hemoglobin 12.2, Hematocrit 38, Mean Corpuscular Volume 90, Mean Corpuscular Hemoglobin 29, Mean Corpuscular Hemoglobin Concent 32, Red Cell Distribution Width 16.8H, Platelet Count 206, Mean Platelet Volume 10.3, Neutrophils (%) (Auto) 77H, Lymphocytes (%) (Auto) 11L, Monocytes (%) (Auto) 12, Eosinophils (%) (Auto) 0, Basophils (%) (Auto) 0, Neutrophils # (Auto) 8.6H, Lymphocytes # (Auto) 1.2, Monocytes # (Auto) 1.3H, Eosinophils # (Auto) 0.0, Basophils # (Auto) 0.0, Sodium Level 138, Potassium Level 3.7, Chloride Level 104, Carbon Dioxide Level 25, Anion Gap 9, Blood Urea Nitrogen 10, Creatinine 0.66, Estimat Glomerular Filtration Rate > 60, BUN/Creatinine Ratio 15, Glucose Level 122H, Calcium Level 8.6, Corrected Calcium 9.2, Total Bilirubin 0.8, Aspartate Amino Transf (AST/SGOT) 14, Alanine Aminotransferase (ALT/SGPT) 12, Alkaline Phosphatase 67, Total Protein 6.1L, Albumin 3.3 Microbiology 06/19/20 MRSA Screen - Final, Complete MRSA not isolated 06/18/20 Urine Culture - Final, Complete 3 or more isolates 06/18/20 Blood Culture - Preliminary, Resulted No growth Assessment/Plan Assessment/Plan Assess & Plan/Chief Complaint sx non-reducible umbilical hernia. appears to have some level of underlying dementia. will undergo cardiac workup before undergoing any surgery. diet as tolerated for now. Clinical Quality Measures DVT/VTE Risk/Contraindication: Risk Factor Score Per Nursin RFS Level Per Nursing on Admit: 4+=Very High LES ETIENNE MD Jun 21, 2020 12:47
--- NOTE | 2020-06-21 13:10 | Progress Note - Cardiology ---
Cardiology SOAP Progress Note Subjective: Sitting up in w/c. States she feels better today. Continues to c/o right leg discomfort. No c/o CP. Chronic SOB, which is unchanged. Objective: I&O/Vital Signs 06/22/20 06/22/20 06/22/20 06/22/20 00:28 07:37 08:00 08:02 Temp 36.5 37.1 Pulse 76 96 Resp 18 20 B/P (MAP) 139/65 (89) 160/75 (103) Pulse Ox 94 93 93 93 O2 Delivery Nasal Cannula Nasal Cannula Nasal Cannula Nasal Cannula O2 Flow Rate 2.00 2.00 2.00 06/22/20 00:00 Intake Total 1450 ml Output Total 675 ml Balance 775 ml Weight (Pounds): 165 Weight (Ounces): 7.0 Weight (Calculated Kilograms): 74.585699 Constitutional: AAO x 3, well-developed, well-nourished Respiratory: No accessory muscle use, No respiratory distress; other (good air entry) Cardiovascular: irregularly irregular; No JVD; S1 and S2, systolic murmur Gastrointestional: tender, round, distended, audible bowel sounds Genital/Rectal: other (suprapubic catheter) Extremities: no lower extremity edema bilateral Neurologic/Psychiatric: other (moves all limbs equally) Skin: No rash on exposed areas, No ulcerations on exposed areas Results/Procedures: Labs Laboratory Tests 06/22/20 05:25: White Blood Count 9.6, Red Blood Count 3.99L, Hemoglobin 11.6, Hematocrit 36, Mean Corpuscular Volume 90, Mean Corpuscular Hemoglobin 29, Mean Corpuscular Hemoglobin Concent 33, Red Cell Distribution Width 17.1H, Platelet Count 216, Mean Platelet Volume 10.5H, Neutrophils (%) (Auto) 76H, Lymphocytes (%) (Auto) 12, Monocytes (%) (Auto) 11, Eosinophils (%) (Auto) 2, Basophils (%) (Auto) 0, Neutrophils # (Auto) 7.3, Lymphocytes # (Auto) 1.1, Monocytes # (Auto) 1.0, Eosinophils # (Auto) 0.2, Basophils # (Auto) 0.0, Sodium Level 138, Potassium Level 3.6, Chloride Level 103, Carbon Dioxide Level 21, Anion Gap 14, Blood Urea Nitrogen 12, Creatinine 0.62, Estimat Glomerular Filtration Rate > 60, BUN/Creatinine Ratio 19, Glucose Level 124H, Calcium Level 8.5 Microbiology 06/19/20 MRSA Screen - Final, Complete MRSA not isolated 06/18/20 Urine Culture - Final, Complete 3 or more isolates 06/18/20 Blood Culture - Preliminary, Resulted No growth Procedures NAME: JULES REYES [facility] REC#: [id number] PT STATUS: ADM IN : 1935 PHYSICIAN: ASYA BURLESON MD ADMIT DATE: 06/18/20 Draft Date of Exam:06/21/20 US VENOUS LOWER EXT RT PROCEDURE: US right lower extremity venous. TECHNIQUE: Multiple real-time grayscale images were obtained over the right lower extremity in various projections. Additional spectral analysis and color Doppler duplex images were also obtained. INDICATION: Posterior right knee pain. FINDINGS: Color Doppler imaging shows normal blood flow throughout the right lower extremity venous system from the external iliac vein throughout to the ankle. Calf compression showed normal augmentation of flow at the popliteal level. No evidence of popliteal cyst. IMPRESSION: No evidence of venous thrombosis. Dictated on workstation # [id number] Dict: 06/21/20 1125 Trans: 06/21/20 1134 [facility] [id number] Interpreted by: MYRNA GOODWIN MD Electronically signed by: A/P: Assessment: Abdominal pain and umbilical hernia - management per Surgical services CAD - s/p [address] Maza at [facility] in : GREY to LAD, SVG to OM1 and SVG to PDA. Cardiac cath of Oct 15, 2017 (done following an MPI that showed apical ischemia) showed widely patent aortocoronary graft to the distal RCA, widely patent aortocoronary graft to OM system, widely patent left internal mammary artery graft to the distal LAD, normal to hyperdynamic LV systolic function with an ejection fraction of approx 70%, normal LVEDP, no evidence of thoracic aortic aneurysm or dissection, mod-sized infrarenal abdominal aortic aneurysm, mild prox stenosis of the left renal artery H/O GI bleed with hypovolemic shock during hospitalization of April 16, 2019. GI bleed due to a bleeding prepyloric ulcer (managed by Dr. Lemus) - no recurrence Carotid arterial disease; s/p R CEA with Dr Valenzuela at [facility] in Dec 2017; s/p L carotid PCI at [facility] in January 2018 (Dr Valenzuela). Mild carotid arterial disease on carotid u/s of Nov 2019 Chronic dyspnea likely multi-factorial: COPD and diastolic dysfunction and physical deconditioning. 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 A 70% ostial and proximal stenoses of the renal arteries on both sides. 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 Proximal occlusion of the right superficial femoral artery which reconstitutes via collaterals in its distal portion. There is a 2- vessel runoff in the leg. Multiple up to 75% stenoses in the mid and distal portions of the left superficial femoral artery. For these findings she was referred to [facility] Echo of 03/05/18 showed LVEF 75-80%, grade 3 mcqueen dysfunction, PASP 45 mmHg, mod biatrial enlargement AoV sclerosis, and mild to mod TR COPD Tobaccoism, quit 2009 HTN H/o hypothyroidism that is followed by her fam phy S/P suprapubic catheter placement per Dr. James on 11-26-2017 Plan: We had a long and detailed discussion with the patient and her daughter regarding patient's CV issues and her cardiac risk Given h/o CAD and ch diastolic CHF, we recommend MPI for cor eval and echo to eval for structural heart disease Dr Arreguin has indicated that she had incarceration of hernia at presentation that has been reduced and it is ok to proceed with preop cardiac risk strat We advise close monitoring of lab We advise replacement of electrolytes as indicated SATHISH ABAD Jun 21, 2020 13:10
--- NOTE | 2020-06-21 13:13 | NUR ---
"RD ASSESSMENT PMHx: COPD; CAD; afib; hypercholesterolemia; HTN; chronic-UTI; chronic constipation; GERD; DM PT INTERACTION: Pt was awake and pleasant during nutrition assessment. Note pt had moments of confusion, and was hard of hearing during nutrition assessment. Pt states current appetite is pretty good, and it has gotten better since yesterday. Note avg PO intake 50-75% x1d and pt had refused 1meal, per chart review. Pt states no issues with chewing/swallowing food. Pt states no issues with nausea and vomiting. Pt states some issues with constipation and diarrhea, and that her last BM was 06/20. Note pt not currently on bowel regimen per chart review. Note recent 7# wt gain x5mon, per chart review. Pt could not elaborate on current level of DM management. Note unable to determine recent HbA1c, per chart review. ABNORMAL NUTRITION-RELATED LAB VALUES LOW: Pro 6.1 HIGH: glu 122 Est. kcal needs: 1625 kcal | 20 kcal/kg Est. Pro needs: 65 g Pro | 0.8 g Pro/kg PES STATEMENT: Inadequate oral intake (NI-2.1) related to loss of appetite | constipation | diarrhea as evidenced by pt interview | avg PO intake 50-75% x1d | Pt refused 1 meal INTERVENTION: Note pt currently NPO. Would recommend diet advancement when medically able and as tolerated. Pt may benefit from nutrition supplementation if PO intake declines upon diet advancement. Did not offer diet education at this time d/t pt confusion. Will attempt to offer again prior to discharge. Will continue to follow and reassess as pt needs, intake, and status change. MONITOR/EVALUATE: PO Intake; Plan of Care; Hydration Status; Weight Status; Lab Values Gardenia Rubalcava, MS, RD, LD"
--- NOTE | 2020-06-21 13:48 | NUR ---
[facility]. THIS RN WILL ASSUME CARE OF THIS PATIENT AT THIS TIME.
--- NOTE | 2020-06-21 14:10 | NUR ---
Pastoral care visit.
[2020-06-21 15:47] VITALS: BP 149/70
--- NOTE | 2020-06-21 16:43 | Progress Note - Cardiology ---
Cardiology SOAP Progress Note Subjective: No cp or palp or syncope No shortness of breath at rest Gen weakness Intermittent abd discomfort No n/v/d Objective: I&O/Vital Signs 06/21/20 06/21/20 06/21/20 06/21/20 04:49 06:58 08:00 08:00 Temp 36.2 36.2 Pulse 91 110 Resp 20 16 B/P (MAP) 109/71 (84) 118/60 (79) Pulse Ox 96 94 93 94 O2 Delivery Nasal Cannula Nasal Cannula Nasal Cannula Nasal Cannula O2 Flow Rate 3.50 2.00 3.50 2.00 06/21/20 06/21/20 06/21/20 10:24 12:00 15:47 Temp 36.7 Pulse 78 Resp 15 B/P (MAP) 149/70 (96) Pulse Ox 94 92 O2 Delivery Nasal Cannula Nasal Cannula Nasal Cannula O2 Flow Rate 1.50 3.50 3.50 06/21/20 00:00 Intake Total 150 ml Output Total 1300 ml Balance -1150 ml Weight (Pounds): 165 Weight (Ounces): 7.0 Weight (Calculated Kilograms): 74.215243 Constitutional: AAO x 3, well-developed, well-nourished Respiratory: No accessory muscle use, No respiratory distress; other (good air entry) Cardiovascular: irregularly irregular; No JVD; S1 and S2, systolic murmur Gastrointestional: tender, round, distended, audible bowel sounds Genital/Rectal: other (suprapubic catheter) Extremities: no lower extremity edema bilateral Neurologic/Psychiatric: other (moves all limbs equally) Skin: No rash on exposed areas, No ulcerations on exposed areas Results/Procedures: Labs Laboratory Tests 06/21/20 05:05: White Blood Count 11.2H, Red Blood Count 4.20L, Hemoglobin 12.2, Hematocrit 38, Mean Corpuscular Volume 90, Mean Corpuscular Hemoglobin 29, Mean Corpuscular Hemoglobin Concent 32, Red Cell Distribution Width 16.8H, Platelet Count 206, Mean Platelet Volume 10.3, Neutrophils (%) (Auto) 77H, Lymphocytes (%) (Auto) 11L, Monocytes (%) (Auto) 12, Eosinophils (%) (Auto) 0, Basophils (%) (Auto) 0, Neutrophils # (Auto) 8.6H, Lymphocytes # (Auto) 1.2, Monocytes # (Auto) 1.3H, Eosinophils # (Auto) 0.0, Basophils # (Auto) 0.0, Sodium Level 138, Potassium Level 3.7, Chloride Level 104, Carbon Dioxide Level 25, Anion Gap 9, Blood Urea Nitrogen 10, Creatinine 0.66, Estimat Glomerular Filtration Rate > 60, BUN/Creatinine Ratio 15, Glucose Level 122H, Calcium Level 8.6, Corrected Calcium 9.2, Total Bilirubin 0.8, Aspartate Amino Transf (AST/SGOT) 14, Alanine Aminotransferase (ALT/SGPT) 12, Alkaline Phosphatase 67, Total Protein 6.1L, Albumin 3.3 Microbiology 06/19/20 MRSA Screen - Final, Complete MRSA not isolated 06/18/20 Urine Culture - Final, Complete 3 or more isolates 06/18/20 Blood Culture - Preliminary, Resulted No growth Laboratory Tests 06/21/20 05:05 A/P: Assessment: Abdominal pain and umbilical hernia - management per Surgical services CAD - s/p [address] Maza at [facility] in : GREY to LAD, SVG to OM1 and SVG to PDA. Cardiac cath of Oct 15, 2017 (done following an MPI that showed apical ischemia) showed widely patent aortocoronary graft to the distal RCA, widely patent aortocoronary graft to OM system, widely patent left internal mammary artery graft to the distal LAD, normal to hyperdynamic LV systolic function with an ejection fraction of approx 70%, normal LVEDP, no evidence of thoracic aortic aneurysm or dissection, mod-sized infrarenal abdominal aortic aneurysm, mild prox stenosis of the left renal artery MPI on 06/21/20: mild ant-lat ischemia (technically difficult study due to significant patient motion) normal LVEF Echo on 06/20/20: LVEF 50-55%, biatrial enlargement, mild to mod TR, pulm htn (PASP approx 60-65 mmHg) H/O GI bleed with hypovolemic shock during hospitalization of April 16, 2019. GI bleed due to a bleeding prepyloric ulcer (managed by Dr. Lemus) - no recurrence Carotid arterial disease; s/p R CEA with Dr Valenzuela at [facility] in Dec 2017; s/p L carotid PCI at [facility] in January 2018 (Dr Valenzuela). Mild carotid arterial disease on carotid u/s of Nov 2019 Chronic atrial fib, first documented on an ECG of 09/27/17 at [facility], rate current ly fairly well controlled Eliquis for stroke prophylaxis H/o old lacunar infarction, including R internal capsule (based on w/u of Dec 2017 at [facility]) S/P right hip replacement Chronic diastolic CHF, clinically compensated Peripheral angiogram with runoffs of March 2018: Moderate-sized, infrarenal, saccular abdominal aortic aneurysm. A 70% ostial and proximal stenoses of the renal arteries on both sides. 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 Proximal occlusion of the right superficial femoral artery which reconstitutes via collaterals in its distal portion. There is a 2- vessel runoff in the leg. Multiple up to 75% stenoses in the mid and distal portions of the left superficial femoral artery. For these findings she was referred to [facility] COPD Tobaccoism, quit 2009 HTN H/o hypothyroidism that is followed by her fam phy S/P suprapubic catheter placement per Dr. James on 11-26-2017 Plan: * Cardiac risk for noncardiac surgery is estimated to be intermediate. This was discussed with the patient. She understands and wishes to proceed if the surgery is considered necessary. Will discuss this with her surgeon * I discussed her case with Dr Arreguin yesterday * Monitor labs * Continue current cardiac regimen perioperatively. May hold Eliquis 48 hour prior to procedure and resume NATALEE after surgery CHELLE GOETZ MD FACP [facility] Jun 21, 2020 16:43
[2020-06-21 20:16] VITALS: BP 119/53
[2020-06-21] MEDS ORDERED: LORazepam INJ 2 MG/ML (ATIVAN) VIAL IVP ONE (21:00)
[2020-06-22 00:28] VITALS: BP 139/65
[2020-06-22 06:17] LABS: BASOPHILS % (AUTO) 0 % (0-10); EOSINOPHILS # (AUTO) 0.2 10^3/uL (0.0-0.3); EOSINOPHILS % (AUTO) 2 % (0-10); HEMATOCRIT 36 % (35-52); HEMOGLOBIN 11.6 G/DL (11.5-16.0); LYMPHOCYTES # (AUTO) 1.1 X 10^3 (1.0-4.0); LYMPHOCYTES % (AUTO) 12 % (12-44); MEAN CORPUSCULAR HEMOGLOBIN 29 PG (25-34); MEAN CORPUSCULAR HGB CONC 33 G/DL (32-36); MEAN CORPUSCULAR VOLUME 90 FL (80-99); MEAN PLATELET VOLUME 10.5 FL (7.4-10.4); MONOCYTES % (AUTO) 11 % (0-12); NEUTROPHILS # (AUTO) 7.3 X 10^3 (1.8-7.8); NEUTROPHILS % (AUTO) 76 % (42-75); PLATELET COUNT 216 10^3/uL (130-400); RED CELL DISTRIBUTION WIDTH 17.1 % (10.0-14.5); WHITE BLOOD COUNT 9.6 10^3/uL (4.3-11.0)
[2020-06-22 06:36] LABS: BUN/CREATININE RATIO 19; CALCIUM 8.5 MG/DL (8.5-10.1); CARBON DIOXIDE 21 MMOL/L (21-32); CHLORIDE 103 MMOL/L (98-107); CREATININE SERUM 0.62 MG/DL (0.60-1.30); GFR ESTIMATED > 60; GLUCOSE 124 MG/DL (70-105); POTASSIUM 3.6 MMOL/L (3.6-5.0); SODIUM 138 MMOL/L (135-145)
[2020-06-22] MEDS: RT-ALBUTEROL SULF 2.5 MG/3 ML PRE-MIX VIAL INH SCH ×4 (07:37→18:10)
[2020-06-22 08:02] VITALS: BP 160/75
[2020-06-22] MEDS: ASPIRIN 81 MG CHEW (CHILDREN'S ASA) PO SCH (09:08)
[2020-06-22] MEDS: APIXABAN 2.5 MG (ELIQUIS) TABLET PO SCH (09:08)
[2020-06-22] MEDS: HYDROcodone/APAP 7.5 MG/325 MG (LORTAB, LORCET PLUS) TABLET PO PRN ×4 (09:08→22:26)
[2020-06-22] MEDS: morphine INJ 4 MG/ML 1 ML (VIAL/SYRINGE) IVP PRN ×4 (09:09→22:25)
[2020-06-22] MEDS: LEVOFLOXACIN 500 MG/100 ML IV 100 ML IV SCH (09:09)
--- NOTE | 2020-06-22 09:18 | NUR ---
This RN in to answer call light of patient. Upon entering the room I found patient to be writhing in pain rolling back and forth in bed. She reports pain in her right leg..she cries "why is it taking so long". Looked in MAR and noted that she can have medications and found RN who has given Morphine and Hydrocodone PRNs, last administered last evening. Dr. Culp notified of increase in and cries of pain and reported to this RN that she has known arterial disease. She will be up soon. Also of note patient is very diaphoretic. Washed her head with cool cloth and placed warm blanket over her right nee which is her main area of complaint. She also complains of pain in her abdomen with known umbilical hernia with surgery plan for tomorrow.
[2020-06-22] MEDS: ONDANSETRON 4 MG/2 ML (SDV) Z0FRAN IVP PRN (09:20)
[2020-06-22] MEDS: ALPRAZolam 0.25 MG (XANAX) TAB PO PRN ×2 (09:20→14:09)
--- NOTE | 2020-06-22 10:28 | NUR ---
This RN has been in to recheck patient after she had such a rough morning with extreme pain. After her PRN medications were given found patient to now be resting and appears comfortable. Her respirations are regular at this time.
--- NOTE | 2020-06-22 12:19 | Progress Note - Cardiology ---
Cardiology SOAP Progress Note Subjective: Lying in bed. C/O significant bilat leg pain, R>L. No c/o abdominal pain or chest pain. Tired this morning d/t not sleeping well. Objective: I&O/Vital Signs 06/23/20 06/23/20 06/23/20 06/23/20 00:44 07:10 07:32 08:08 Temp 36.3 36.4 Pulse 83 88 Resp 18 18 B/P (MAP) 117/66 (83) 158/72 (100) Pulse Ox 91 90 94 O2 Delivery Nasal Cannula Nasal Cannula Nasal Cannula Nasal Cannula O2 Flow Rate 3.00 2.00 3.00 2.00 06/23/20 00:00 Intake Total 642 ml Output Total 1175 ml Balance -533 ml Weight (Pounds): 165 Weight (Ounces): 7.0 Weight (Calculated Kilograms): 74.610078 Constitutional: AAO x 3, well-developed, well-nourished Respiratory: No accessory muscle use, No respiratory distress; other (good air entry) Cardiovascular: irregularly irregular; No JVD; S1 and S2, systolic murmur Gastrointestional: tender, round, distended, audible bowel sounds Genital/Rectal: other (suprapubic catheter) Extremities: other, no lower extremity edema bilateral Neurologic/Psychiatric: other (moves all limbs equally) Skin: No rash on exposed areas, No ulcerations on exposed areas Results/Procedures: Labs Laboratory Tests 06/23/20 05:23: White Blood Count 10.4, Red Blood Count 3.92L, Hemoglobin 11.4L, Hematocrit 35, Mean Corpuscular Volume 90, Mean Corpuscular Hemoglobin 29, Mean Corpuscular Hemoglobin Concent 32, Red Cell Distribution Width 16.5H, Platelet Count 222, Mean Platelet Volume 9.9, Sodium Level 138, Potassium Level 3.7, Chloride Level 106, Carbon Dioxide Level 23, Anion Gap 9, Blood Urea Nitrogen 9, Creatinine 0.65, Estimat Glomerular Filtration Rate > 60, BUN/Creatinine Ratio 14, Glucose Level 144H, Calcium Level 8.5, Magnesium Level 1.5L Microbiology 06/19/20 MRSA Screen - Final, Complete MRSA not isolated 06/18/20 Urine Culture - Final, Complete 3 or more isolates 06/18/20 Blood Culture - Preliminary, Resulted No growth A/P: Assessment: Abdominal pain and umbilical hernia - management per Surgical services CAD - s/p [address] Maza at [facility] in : GREY to LAD, SVG to OM1 and SVG to PDA. Cardiac cath of Oct 15, 2017 (done following an MPI that showed apical ischemia) showed widely patent aortocoronary graft to the distal RCA, widely patent aortocoronary graft to OM system, widely patent left internal mammary artery graft to the distal LAD, normal to hyperdynamic LV systo lic function with an ejection fraction of approx 70%, normal LVEDP, no evidence of thoracic aortic aneurysm or dissection, mod-sized infrarenal abdominal aortic aneurysm, mild prox stenosis of the left renal artery MPI on 06/21/20: mild ant-lat ischemia (technically difficult study due to significant patient motion) normal LVEF Echo on 06/20/20: LVEF 50-55%, biatrial enlargement, mild to mod TR, pulm htn (PASP approx 60-65 mmHg) H/O GI bleed with hypovolemic shock during hospitalization of April 16, 2019. GI bleed due to a bleeding prepyloric ulcer (managed by Dr. Lemus) - no recurrence Carotid arterial disease; s/p R CEA with Dr Valenzuela at [facility] in Dec 2017; s/p L carotid PCI at [facility] in January 2018 (Dr Valenzuela). Mild carotid arterial disease on carotid u/s of Nov 2019 Chronic atrial fib, first documented on an ECG of 09/27/17 at [facility], rate currently fairly well controlled Eliquis for stroke prophylaxis H/o old lacunar infarction, including R internal capsule (based on w/u of Dec 2017 at [facility]) S/P right hip replacement Chronic diastolic CHF, clinically compensated Peripheral angiogram with runoffs of March 2018: Moderate-sized, infrarenal, saccular abdominal aortic aneurysm. A 70% ostial and proximal stenoses of the renal arteries on both sides. 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 Proximal occlusion of the right superficial femoral artery which reconstitutes via collaterals in its distal portion. There is a 2- vessel runoff in the leg. Multiple up to 75% stenoses in the mid and distal portions of the left superficial femoral artery. For these findings she was referred to [facility] COPD Tobaccoism, quit 2009 HTN H/o hypothyroidism that is followed by her fam phy S/P suprapubic catheter placement per Dr. James on 11-26-2017 Plan: * Cardiac risk for noncardiac surgery is estimated to be intermediate. This was discussed with the patient. She understands and wishes to proceed if the surgery is considered necessary. Will discuss this with her surgeon * I discussed her case with Dr Arreguin yesterday * Monitor labs * Continue current cardiac regimen perioperatively. May hold Eliquis 48 hour prior to procedure and resume NATALEE after surgery * Continues to c/o significant LE pain, no evidence of DVT, advise arterial doppler SATHISH ABAD Jun 22, 2020 12:19
--- NOTE | 2020-06-22 12:37 | NUR ---
This RN has returned to bedside to check on patient. She is awake and at first appears seems much more comfortable. This is confirmed by her verbalization of "not much pain right now". She reports not having any idea what happened to her leg but the pain was the worst she had ever experienced saying "I have had 3 kids and I never felt anything like that". Went on to say "I thought for sure I was on the way out". Will continue to monitor for her increased pain.
--- NOTE | 2020-06-22 13:04 | Progress Note ---
Subjective Date Seen by a Provider: Jun 22, 2020 Time Seen by a Provider: 13:00 Subjective/Events-last exam doing ok. still complains of pain. tolerating diet and having BM's. Objective Exam Vital Signs Date Time Temp Pulse Resp B/P (MAP) Pulse Ox O2 Delivery O2 Flow Rate FiO2 06/22/20 08:02 37.1 96 20 160/75 (103) 93 Nasal Cannula 2.00 06/22/20 08:00 93 Nasal Cannula 2.00 06/22/20 07:37 93 Nasal Cannula 2.00 06/22/20 00:28 36.5 76 18 139/65 (89) 94 Nasal Cannula 06/21/20 20:30 Nasal Cannula 3.00 06/21/20 20:16 36.1 100 16 119/53 (75) 91 Nasal Cannula 3.50 06/21/20 19:33 89 Nasal Cannula 1.50 06/21/20 15:47 36.7 78 15 149/70 (96) 92 Nasal Cannula 3.50 I & O 06/22/20 06:59 Intake Total 1600 ml Output Total 1075 ml Balance 525 ml Capillary Refill : Less Than 3 SecondsLess Than 3 Seconds General Appearance: No Apparent Distress HEENT: PERRL/EOMI Neck: Full Range of Motion Respiratory: Chest Non Tender, Lungs Clear, Decreased Breath Sounds Cardiovascular: Regular Rate, Rhythm Gastrointestinal: normal bowel sounds, soft, tenderness Neurologic/Psychiatric: Alert, Oriented x3 Lymphatic: No Adenopathy Results Lab Laboratory Tests 06/22/20 05:25: White Blood Count 9.6, Red Blood Count 3.99L, Hemoglobin 11.6, Hematocrit 36, Mean Corpuscular Volume 90, Mean Corpuscular Hemoglobin 29, Mean Corpuscular Hemoglobin Concent 33, Red Cell Distribution Width 17.1H, Platelet Count 216, Mean Platelet Volume 10.5H, Neutrophils (%) (Auto) 76H, Lymphocytes (%) (Auto) 12, Monocytes (%) (Auto) 11, Eosinophils (%) (Auto) 2, Basophils (%) (Auto) 0, Neutrophils # (Auto) 7.3, Lymphocytes # (Auto) 1.1, Monocytes # (Auto) 1.0, Eosinophils # (Auto) 0.2, Basophils # (Auto) 0.0, Sodium Level 138, Potassium Level 3.6, Chloride Level 103, Carbon Dioxide Level 21, Anion Gap 14, Blood Urea Nitrogen 12, Creatinine 0.62, Estimat Glomerular Filtration Rate > 60, BUN/Creatinine Ratio 19, Glucose Level 124H, Calcium Level 8.5 Microbiology 06/19/20 MRSA Screen - Final, Complete MRSA not isolated 06/18/20 Urine Culture - Final, Complete 3 or more isolates 06/18/20 Blood Culture - Preliminary, Resulted No growth Assessment/Plan Assessment/Plan Assess & Plan/Chief Complaint sx non-reducible umbilical hernia. appears to have some level of underlying dementia. will undergo cardiac workup before undergoing any surgery. diet as tolerated for now. open umbilical hernia repair with mesh will be scheduled for (06/23) Clinical Quality Measures DVT/VTE Risk/Contraindication: Risk Factor Score Per Nursin RFS Level Per Nursing on Admit: 4+=Very High LES ETIENNE MD Jun 22, 2020 13:04
--- NOTE | 2020-06-22 13:10 | NUR ---
This RN has spoken to Dr. Arreguin regarding patient's Eliquis and planned surgery. He asked for this RN to HOLD Eliquis this evening, possible resume after surgery depending on how patient does. I have notified the RN of this order and have entered it into computer.
--- NOTE | 2020-06-22 14:15 | Diagnostic Imaging Report ---
PROCEDURE: US Bilateral lower extremity arterial. TECHNIQUE: Multiple Real-time grayscale images are obtained through both lower extremity arterial systems with color Doppler imaging and color Doppler spectral analysis. INDICATION: Leg pain. FINDINGS: There is scattered calcified plaque throughout both lower extremity arterial systems. Monophasic waveforms throughout the right lower extremity arterial system are seen. Velocities on the right are unremarkable without evidence of high-grade stenosis or occlusion. There is a mixture of biphasic and monophasic waveforms throughout the left lower extremity arterial system. There is moderate velocity elevation in the mid left SFA reaching 274 cm/s. There are some dampened velocities in the posterior tibial artery measuring 8 cm/s at the ankle. No complete occlusion is identified. No fluid collections are detected. IMPRESSION: Bilateral lower extremity peripheral vascular disease. There are monophasic waveforms throughout the right lower extreme arterial system which can be seen with more proximal disease. There is a probable stenosis in the mid left SFA where there is some velocity elevation. Conventional or CT angiography may be useful for further evaluation. Dictated by: Dictated on workstation # [id number]
--- NOTE | 2020-06-22 14:56 | Progress Note - Cardiology ---
Cardiology SOAP Progress Note Subjective: Has intermittent abdominal and R knee pain No n/v/d Gen weakness No focal weakness No cp or shortness of breath or palp or syncope Objective: I&O/Vital Signs 06/22/20 06/22/20 06/22/20 07:37 08:00 08:02 Temp 37.1 Pulse 96 Resp 20 B/P (MAP) 160/75 (103) Pulse Ox 93 93 93 O2 Delivery Nasal Cannula Nasal Cannula Nasal Cannula O2 Flow Rate 2.00 2.00 2.00 06/22/20 00:00 Intake Total 1450 ml Output Total 675 ml Balance 775 ml Weight (Pounds): 165 Weight (Ounces): 7.0 Weight (Calculated Kilograms): 74.287494 Constitutional: AAO x 3, well-developed, well-nourished Respiratory: No accessory muscle use, No respiratory distress; other (good air entry) Cardiovascular: irregularly irregular; No JVD; S1 and S2, systolic murmur Gastrointestional: tender, round, distended, audible bowel sounds Genital/Rectal: other (suprapubic catheter) Extremities: other, no lower extremity edema bilateral Neurologic/Psychiatric: other (moves all limbs equally) Skin: No rash on exposed areas, No ulcerations on exposed areas Results/Procedures: Labs Laboratory Tests 06/22/20 05:25: White Blood Count 9.6, Red Blood Count 3.99L, Hemoglobin 11.6, Hematocrit 36, Mean Corpuscular Volume 90, Mean Corpuscular Hemoglobin 29, Mean Corpuscular Hemoglobin Concent 33, Red Cell Distribution Width 17.1H, Platelet Count 216, Mean Platelet Volume 10.5H, Neutrophils (%) (Auto) 76H, Lymphocytes (%) (Auto) 12, Monocytes (%) (Auto) 11, Eosinophils (%) (Auto) 2, Basophils (%) (Auto) 0, Neutrophils # (Auto) 7.3, Lymphocytes # (Auto) 1.1, Monocytes # (Auto) 1.0, Eosinophils # (Auto) 0.2, Basophils # (Auto) 0.0, Sodium Level 138, Potassium Level 3.6, Chloride Level 103, Carbon Dioxide Level 21, Anion Gap 14, Blood Urea Nitrogen 12, Creatinine 0.62, Estimat Glomerular Filtration Rate > 60, BUN/Creatinine Ratio 19, Glucose Level 124H, Calcium Level 8.5 Microbiology 06/19/20 MRSA Screen - Final, Complete MRSA not isolated 06/18/20 Urine Culture - Final, Complete 3 or more isolates 06/18/20 Blood Culture - Preliminary, Resulted No growth Laboratory Tests 06/21/20 05:05 06/22/20 05:25 A/P: Assessment: Abdominal pain and umbilical hernia - management per Surgical services R knee pain of undetermined etiology, managed by the [facility] CAD - s/p [address] Maza at [facility] in : GREY to LAD, SVG to OM1 and SVG to PDA. Cardiac cath of Oct 15, 2017 (done following an MPI that showed apical ischemia) showed widely patent aortocoronary graft to the distal RCA, widely patent aortocoronary graft to OM system, widely patent left internal mammary artery graft to the distal LAD, normal to hyperdynamic LV systolic function with an ejection fraction of approx 70%, normal LVEDP, no evidence of thoracic aortic aneurysm or dissection, mod-sized infrarenal abdominal aortic aneurysm, mild prox stenosis of the left renal artery MPI on 06/21/20: mild ant-lat ischemia (technically difficult study due to significant patient motion) normal LVEF Echo on 06/20/20: LVEF 50-55%, biatrial enlargement, mild to mod TR, pulm htn (PASP approx 60-65 mmHg) H/O GI bleed with hypovolemic shock during hospitalization of April 16, 2019. GI bleed due to a bleeding prepyloric ulcer (managed by Dr. Lemus) - no recurrence Carotid arterial disease; s/p R CEA with Dr Valenzuela at [facility] in Dec 2017; s/p L carotid PCI at [facility] in January 2018 (Dr Valenzuela). Mild carotid arterial disease on carotid u/s of Nov 2019 Chronic atrial fib, first documented on an ECG of 09/27/17 at [facility], rate currently fairly well controlled Eliquis for stroke prophylaxis H/o old lacunar infarction, including R internal capsule (based on w/u of Dec 2017 at [facility]) S/P right hip replacement Chronic diastolic CHF, clinically compensated Peripheral angiogram with runoffs of March 2018: Moderate-sized, infrarenal, saccular abdominal aortic aneurysm. A 70% ostial and proximal stenoses of the renal arteries on both sides. 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 Proximal occlusion of the right superficial femoral artery which reconstitutes via collaterals in its distal portion. There is a 2- vessel runoff in the leg. Multiple up to 75% stenoses in the mid and distal portions of the left superficial femoral artery. For these findings she was referred to [facility]. Arterial Doppler of both legs on 06/22/20: Bilateral lower extremity peripheral vascular disease. There are monophasic waveforms throughout the right lower extreme arterial system which can be seen with more proximal disease. There is a probable stenosis in the mid left SFA where there is some velocity elevation COPD Tobaccoism, quit 2009 HTN H/o hypothyroidism that is followed by her fam carolyn S/P suprapubic catheter placement per Dr. James on 11-26-2017 Plan: * Cardiac risk for noncardiac surgery is estimated to be intermediate. This was discussed with the patient. She understands and wishes to proceed if the surgery is considered necessary * I discussed her case with Dr Arreguin on 07/07 * Monitor labs * Continue current cardiac regimen perioperatively. May hold Eliquis 48 hour prior to procedure and resume NATALEE after surgery CHELLE GOETZ MD FACP FAC CCDS Jun 22, 2020 14:56
[2020-06-22 15:47] VITALS: BP 117/63
[2020-06-22] MEDS: LACTATED RINGERS 1,000 ML IV SCH (20:26)
--- NOTE | 2020-06-22 21:21 | Progress Note ---
Subjective Subjective/Events-last exam Patient in pain most of the night. Comfortable and sleeping now. Review of Systems Pulmonary: No Dyspnea, No Cough Musculoskeletal: leg pain Neurological: Weakness, Incoordination Objective Exam Last Set of Vital Signs Vital Signs Date Time Temp Pulse Resp B/P (MAP) Pulse Ox O2 Delivery O2 Flow Rate FiO2 06/22/20 15:47 36.5 82 16 117/63 (81) 93 Nasal Cannula 2.00 Capillary Refill : Less Than 3 SecondsLess Than 3 Seconds I&O Intake and Output 06/22/20 00:00 Intake Total 2550 ml Output Total 925 ml Balance 1625 ml Intake Oral 450 ml IV Total 2100 ml Output Urine Total 925 ml General: Alert, Mild Distress (due to pain) Lungs: Clear to Auscultation, Normal Air Movement Heart: Regular Rate, No Murmurs Abdomen: Normal Bowel Sounds, Soft Extremities: Other (Patient will not let anyone touch her leg) Results/Procedures Lab Laboratory Tests 06/22/20 05:25: White Blood Count 9.6, Red Blood Count 3.99L, Hemoglobin 11.6, Hematocrit 36, Mean Corpuscular Volume 90, Mean Corpuscular Hemoglobin 29, Mean Corpuscular Hemoglobin Concent 33, Red Cell Distribution Width 17.1H, Platelet Count 216, Mean Platelet Volume 10.5H, Neutrophils (%) (Auto) 76H, Lymphocytes (%) (Auto) 12, Monocytes (%) (Auto) 11, Eosinophils (%) (Auto) 2, Basophils (%) (Auto) 0, Neutrophils # (Auto) 7.3, Lymphocytes # (Auto) 1.1, Monocytes # (Auto) 1.0, Eosinophils # (Auto) 0.2, Basophils # (Auto) 0.0, Sodium Level 138, Potassium Level 3.6, Chloride Level 103, Carbon Dioxide Level 21, Anion Gap 14, Blood Urea Nitrogen 12, Creatinine 0.62, Estimat Glomerular Filtration Rate > 60, BUN/Creatinine Ratio 19, Glucose Level 124H, Calcium Level 8.5 Microbiology 06/19/20 MRSA Screen - Final, Complete MRSA not isolated 06/18/20 Urine Culture - Final, Complete 3 or more isolates 06/18/20 Blood Culture - Preliminary, Resulted No growth Radiology NAME: JULES REYES [facility] REC#: [id number] PT STATUS: REG ER : 1935 PHYSICIAN: TARA SOTO MD ADMIT DATE: 06/18/20/ER Signed Date of Exam:06/18/20 CT ABDOMEN/PELVIS W EXAMINATION: CT Abdomen and Pelvis with intravenous contrast. TECHNIQUE: Multiple contiguous axial images were obtained through the abdomen and pelvis after the uneventful administration of intravenous contrast. All CT scans use one or more of the following dose optimizing techniques: automated exposure control, MA and/or KvP adjustment based on a patient size and exam type, or iterative reconstruction. HISTORY: Lower abdominal pain. COMPARISON: 04/16/2019 FINDINGS: Limited views of the lower thorax show mild reticulations consistent with mild nonspecific fibrosis. Coronary arteries are calcified. The liver is normal without focal lesion. There is no biliary ductal dilation. Gallbladder is normal. Pancreas is normal. Spleen is normal. Adrenal glands are normal. There are small cysts in both kidneys. No suspicious renal lesions. There is no hydronephrosis. Bladder is decompressed by suprapubic catheter. Visualized bowel is normal in caliber without obstruction or inflammation. There is a large duodenal diverticulum. There is a fat-containing umbilical hernia. It appears similar to prior exam. No free fluid or air. No abdominal or pelvic lymphadenopathy. There is a stable 4.2 cm abdominal aortic aneurysm. 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 Right superficial femoral artery is occluded past its origin. There are no suspicious osseous lesions. There is a right total hip arthroplasty. There is a chronic L3 compression fracture which is mild. IMPRESSION: 1. Fat-containing umbilical hernia is unchanged. 2. Stable 4.2 cm abdominal aortic aneurysm and right common iliac artery aneurysm. Dictated by: Dictated on workstation # [id number] Dict: 06/18/20 1155 Trans: 06/18/20 1204 [facility] [id number] Interpreted by: EVELINE BLANCO MD Electronically signed by: EVELINE BLANCO MD 06/18/20 1204 Assessment/Plan Assessment/Plan Assessment & Plan get US of R leg to make sure no clot has formed. (1) Umbilical hernia, incarcerated Status: Acute Assessment & Plan: 06/21: Plan per Dr Arreguin, awaiting pre surgical evaluation 06/22: Plan for surgery tomorrow (2) Atrial fibrillation Status: Chronic Assessment & Plan: 06/21: Appreciate Dr Torrez seeing patient for preop evaluation Qualifiers: Qualified Codes: I48.0 - Paroxysmal atrial fibrillation (3) Coronary artery disease Status: Chronic Qualifiers: Qualified Codes: I25.10 - Atherosclerotic heart disease of kashia coronary artery without angina pectoris (4) Right knee pain Status: Acute Assessment & Plan: 06/21: Venous dopplers neg today, patient with h/o arterial disease and was referred to [facility] 06/22: Likely 2/2 to arterial disease, good cap refill in foot Qualifiers: Qualified Codes: M25.561 - Pain in right knee (5) HTN (hypertension) Status: Chronic Qualifiers: Qualified Codes: I10 - Essential (primary) hypertension (6) H/O: CVA (cerebrovascular accident) Status: Chronic (7) Hypoxia Status: Acute Assessment & Plan: - Continue to titrate as tolerated (8) DVT prophylaxis Status: Acute Assessment & Plan: - Patient on Eliquis, plan to d/c 48hrs prior to surgery Clinical Quality Measures DVT/VTE Risk/Contraindication: Risk Factor Score Per Nursin RFS Level Per Nursing on Admit: 4+=Very High ASYA BURLESON MD Jun 22, 2020 21:21
[2020-06-23] VITALS (9 sets, daily range): BP systolic 117–158; BP diastolic 66–103
[2020-06-23] MEDS: morphine INJ 4 MG/ML 1 ML (VIAL/SYRINGE) IVP PRN ×3 (04:24→20:59)
[2020-06-23 05:32] LABS: HEMOGLOBIN 11.4 G/DL (11.5-16.0); MEAN PLATELET VOLUME 9.9 FL (7.4-10.4); RED CELL DISTRIBUTION WIDTH 16.5 % (10.0-14.5); WHITE BLOOD COUNT 10.4 10^3/uL (4.3-11.0)
[2020-06-23 05:54] LABS: BUN/CREATININE RATIO 14; CALCIUM 8.5 MG/DL (8.5-10.1); CARBON DIOXIDE 23 MMOL/L (21-32); CHLORIDE 106 MMOL/L (98-107); CREATININE SERUM 0.65 MG/DL (0.60-1.30); GFR ESTIMATED > 60; GLUCOSE 144 MG/DL (70-105); MAGNESIUM 1.5 MG/DL (1.6-2.4); POTASSIUM 3.7 MMOL/L (3.6-5.0); SODIUM 138 MMOL/L (135-145)
[2020-06-23] MEDS: RT-ALBUTEROL SULF 2.5 MG/3 ML PRE-MIX VIAL INH SCH ×5 (07:10→18:59)
[2020-06-23] MEDS: LEVOFLOXACIN 500 MG/100 ML IV 100 ML IV SCH (08:34)
--- NOTE | 2020-06-23 09:10 | NUR ---
Palliative Care RN in to see patient. Found her to be resting with eyes closed so did not awaken her. She is planned for an Open Umbilical Hernia repair with mesh today.
--- NOTE | 2020-06-23 09:52 | NUR ---
CALLED AND LEFT MEANNIKAAGE FOR ABHISHEK ABOUT GIVING AM B/P MEDS WITH SIP OF WATER THIS AM
--- NOTE | 2020-06-23 10:12 | Progress Note - Cardiology ---
Cardiology SOAP Progress Note Subjective: Lying in bed. Surgery later today. Continues to c/o abd discomfort and leg discomfort. No c/o CP. Chronic dyspnea which is unchanged. Objective: I&O/Vital Signs 06/24/20 06/24/20 06/24/20 06/24/20 07:36 08:00 08:00 10:33 Temp 36.3 Pulse 122 Resp 20 B/P (MAP) 159/89 (112) Pulse Ox 94 90 93 O2 Delivery Vapotherm Vapotherm Vapotherm Vapotherm O2 Flow Rate 20.00 35.00 20.00 20.00 60.00 FiO2 50 60 50 06/24/20 10:43 Pulse Ox 91 O2 Delivery High Flow N/C O2 Flow Rate 7.00 06/24/20 00:00 Intake Total 2740 ml Output Total 2100 ml Balance 640 ml Weight (Pounds): 165 Weight (Ounces): 7.0 Weight (Calculated Kilograms): 74.316229 Constitutional: AAO x 3, well-developed, well-nourished Respiratory: No accessory muscle use, No respiratory distress; other (good air entry) Cardiovascular: irregularly irregular; No JVD; S1 and S2, systolic murmur Gastrointestional: tender, round, distended, audible bowel sounds Genital/Rectal: other (suprapubic catheter) Extremities: other, no lower extremity edema bilateral Neurologic/Psychiatric: other (moves all limbs equally) Skin: No rash on exposed areas, No ulcerations on exposed areas Results/Procedures: Labs Laboratory Tests 06/24/20 06:27: White Blood Count 11.2H, Red Blood Count 3.09L, Hemoglobin 8.9#L, Hematocrit 28L , Mean Corpuscular Volume 90, Mean Corpuscular Hemoglobin 29, Mean Corpuscular Hemoglobin Concent 32, Red Cell Distribution Width 16.2H, Platelet Count 302, Mean Platelet Volume 9.8, Sodium Level 137, Potassium Level 4.0, Chloride Level 103, Carbon Dioxide Level 24, Anion Gap 10, Blood Urea Nitrogen 11, Creatinine 0.67, Estimat Glomerular Filtration Rate > 60, BUN/Creatinine Ratio 16, Glucose Level 202H, Calcium Level 8.9, Corrected Calcium 9.5, Magnesium Level 1.9, Total Bilirubin 0.5, Aspartate Amino Transf (AST/SGOT) 12, Alanine Aminotransferase (ALT/SGPT) 11, Alkaline Phosphatase 62, Total Protein 6.2L, Albumin 3.2 Microbiology 06/22/20 MRSA Screen - Final, Complete 06/18/20 Urine Culture - Final, Complete 3 or more isolates 06/18/20 Blood Culture - Final, Complete No growth A/P: Assessment: Abdominal pain and umbilical hernia - management per Surgical services R knee pain of undetermined etiology, managed by the [facility] CAD - s/p [address] Maza at [facility] in : GREY to LAD, SVG to OM1 and SVG to PDA. Cardiac cath of Oct 15, 2017 (done following an MPI that showed apical ischemia) showed widely patent aortocoronary graft to the distal RCA, widely patent aortocoronary graft to OM system, widely patent left internal mammary artery graft to the distal LAD, normal to hyperdynamic LV systolic function with an ejection fraction of approx 70%, normal LVEDP, no evidence of thoracic aortic aneurysm or dissection, mod-sized infrarenal abdominal aortic aneurysm, mild prox stenosis of the left renal artery MPI on 06/21/20: mild ant-lat ischemia (technically difficult study due to significant patient motion) normal LVEF Echo on 06/20/20: LVEF 50-55%, biatrial enlargement, mild to mod TR, pulm htn (PASP approx 60-65 mmHg) H/O GI bleed with hypovolemic shock during hospitalization of April 16, 2019. GI bleed due to a bleeding prepyloric ulcer (managed by Dr. Lemus) - no recurrence Carotid arterial disease; s/p R CEA with Dr Valenzuela at [facility] in Dec 2017; s/p L carotid PCI at [facility] in January 2018 (Dr Valenzuela). Mild carotid arterial disease on carotid u/s of Nov 2019 Chronic atrial fib, first documented on an ECG of 09/27/17 at [facility], rate curren tly fairly well controlled Eliquis for stroke prophylaxis H/o old lacunar infarction, including R internal capsule (based on w/u of Dec 2017 at [facility]) S/P right hip replacement Chronic diastolic CHF, clinically compensated Peripheral angiogram with runoffs of March 2018: Moderate-sized, infrarenal, saccular abdominal aortic aneurysm. A 70% ostial and proximal stenoses of the renal arteries on both sides. 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 Proximal occlusion of the right superficial femoral artery which reconstitutes via collaterals in its distal portion. There is a 2- vessel runoff in the leg. Multiple up to 75% stenoses in the mid and distal portions of the left superficial femoral artery. For these findings she was referred to [facility]. Arterial Doppler of both legs on 06/22/20: Bilateral lower extremity peripheral vascular disease. There are monophasic waveforms throughout the right lower extreme arterial system which can be seen with more proximal disease. There is a probable stenosis in the mid left SFA where there is some velocity elevation COPD Tobaccoism, quit 2009 HTN H/o hypothyroidism that is followed by her fam carolyn S/P suprapubic catheter placement per Dr. James on 11-26-2017 Plan: * Cardiac risk for noncardiac surgery is estimated to be intermediate. This was discussed with the patient. She understands and wishes to proceed if the surgery is considered necessary * I discussed her case with Dr Arreguin on 07/07 * Monitor labs * Replace electrolytes * Continue current cardiac regimen perioperatively. May hold Eliquis 48 hour prior to procedure and resume NATALEE after surgery SATHISH ABAD [facility] Jun 23, 2020 10:12
[2020-06-23] MEDS ORDERED: MAGNESIUM 1 GM/100 ML IVPB 200 ML IV ONE (10:22)
[2020-06-23] MEDS: MAGNESIUM 1 GM/100 ML IVPB 100 ML IV SCH ×2 (10:27→11:44)
--- NOTE | 2020-06-23 10:59 | Progress Note-Pre Operative ---
Pre-Operative Progress Note H&P Reviewed The H&P was reviewed, patient examined and no changes noted. Date Seen by Provider: Jun 23, 2020 Time Seen by Provider: 10:00 Date H&P Reviewed: Jun 19, 2020 Time H&P Reviewed: 10:00 Pre-Operative Diagnosis: symptomatic incarcerated umbilical hernia LES ETIENNE MD Jun 23, 2020 10:59
[2020-06-23] MEDS ORDERED: HYDR-3817 PO (11:01)
--- NOTE | 2020-06-23 11:02 | Discharge Inst-Surgical ---
D/C Lap Instructions-JAIMIE New, Converted, or Re-Newed RX: RX on Chart Follow Up Appt in 2 weeks Activity as tolerated No driving for 24 hours No driving while on pain medications Incentive Spirometry use every 2 hours while awake Regular Diet Symptoms to Report: Fever over 101 degree F, Nausea/Vomiting Infection Signs and Symptoms to report: Increased redness, Foul odor of wound, Increased drainage Bathing instructions: May shower Operative Area Clean/Dry; Keep incision clean/dry If any problems/questions: Contact your physician or go to Emergency Room LES ETIENNE MD Jun 23, 2020 11:02
[2020-06-23] MEDS ORDERED: LACTATED RINGERS 1,000 ML IV PRN (12:00)
[2020-06-23] MEDS ORDERED: BUP/EPI 0.5% 1:200,000 (MARCAINE) 10ML VIAL IJ ONE (13:02)
[2020-06-23] MEDS ORDERED: GLYCOPYRROLATE 0.2 MG/ML (ROBINUL) 2 ML VIAL ONE (13:09)
[2020-06-23] MEDS ORDERED: proPOfol 200 MG/20 ML (DIPRIVAN) VIAL IV ONE (13:09)
[2020-06-23] MEDS ORDERED: MIDAZOLAM 2 MG/2 ML (VERSED) VIAL ONE (13:09)
[2020-06-23] MEDS ORDERED: ONDANSETRON 4 MG/2 ML (SDV) Z0FRAN ONE ×2 (13:09→14:48)
[2020-06-23] MEDS ORDERED: LIDOCAINE PF 2% 5 ML (XYLOCAINE) VIAL ONE (13:09)
[2020-06-23] MEDS ORDERED: ROCURONIUM 10 MG/ML 5 ML SYRINGE IV ONE (13:09)
[2020-06-23] MEDS ORDERED: fentaNYL INJECTION 100 MCG/2 ML AMP ONE (13:09)
[2020-06-23] MEDS ORDERED: NEOSTIGMINE 3 MG/3 ML VIAL ONE (13:09)
[2020-06-23] MEDS ORDERED: SEVOFLURANE (ULTANE) 15 ML INHAL SOLN ONE (13:11)
--- NOTE | 2020-06-23 14:01 | NUR ---
TAKEN DOWN FOR SURGERY
[2020-06-23] MEDS ORDERED: ceFAZolin INJECTION 2,000 MG ONE (14:43)
--- NOTE | 2020-06-23 15:17 | Progress Note-Post Operative ---
Post-Operative Progess Note Surgeon (s)/Rn Forensic (s) Surgeon LES ETIENNE MD Rn Forensic: florian nieto [employer] Pre-Operative Diagnosis symptomatic incarcerated umbilical hernia Post-Operative Diagnosis same Procedure & Operative Findings Date of Procedure 06/23/20 Procedure Performed/Findings open umbilical hernia repair with mesh Anesthesia Type get Estimated Blood Loss Estimated blood loss (mL): minimal Specimens/Packing Specimens Removed hernia sac LES ETIENNE MD Jun 23, 2020 15:17
[2020-06-23] MEDS ORDERED: morphine INJ 10 MG/ML 1ML (SYR OR VIAL) ONE (15:27)
[2020-06-23] MEDS ORDERED: ceFAZolin INJECTION 1,000 MG VIAL IJ ONE (15:30)
--- NOTE | 2020-06-23 16:10 | Anesthesia-General Post-Op ---
General Patient Condition Mental Status/LOC: Same as Preop Cardiovascular: Satisfactory Nausea/Vomiting: Absent Respiratory: Satisfactory Pain: Controlled Complications: Absent Post Op Complications Complications None Follow Up Care/Instructions Patient Instructions None needed. Anesthesia/Patient Condition Patient Condition Patient is doing well, no complaints, stable vital signs, no apparent adverse anesthesia problems. No complications reported per nursing. NEENA MICHEL CRNA Jun 23, 2020 16:10
[2020-06-23] MEDS ORDERED: morphine INJ 10 MG/ML 1ML (SYR OR VIAL) IVP ONE (16:15)
[2020-06-23] MEDS ORDERED: ONDANSETRON 4 MG/2 ML (SDV) Z0FRAN IVP PRN (16:15)
--- NOTE | 2020-06-23 16:45 | NUR ---
BACK ON FLOOR REPORT FROM [employer] -- WHEN VS GOTTEN PT SATS LOW 80S AND HIGH 70S --RT CALLED AND O2 INCREASED TO 6L/NC -- STILL LOWER SATS RT PUT PT OH VAPOR THERM -- 35L/60% -- NOTE THAT AFTER CALL EARLIER TODAY FROM PT'S FAMILY AND THEM YELLS AT THIS RN BECAUSE THEY WERE NOT INFORMED OF THE SURGERY -- THIS RN GOT THERE NUMBER AND WHEN PT TO FLOOR THIS RN CALLED FAMILY - NO ANSWER SO THIS RN LEFT MESSAGE -- PT BREATHING EASIER -- WILL GIVE PRN XANAX --
[2020-06-23] MEDS ORDERED: SUGAMMADEX 500 MG/5 ML VIAL (BRIDION) IV ONE (17:19)
--- NOTE | 2020-06-23 17:20 | Progress Note - Cardiology ---
Cardiology SOAP Progress Note Subjective: Reported improvement of abd and knee pain today No palp or syncope No n/v/d No shortness of breath Awaiting abd surgery Objective: I&O/Vital Signs 06/23/20 06/23/20 06/23/20 06/23/20 07:10 07:32 08:08 14:54 Temp 36.4 36.08371 Pulse 88 Resp 18 B/P (MAP) 158/72 (100) Pulse Ox 90 94 O2 Delivery Nasal Cannula Nasal Cannula Nasal Cannula O2 Flow Rate 2.00 3.00 2.00 06/23/20 06/23/20 06/23/20 06/23/20 15:40 15:40 15:50 15:50 Temp 36.6 Resp 18 15 B/P (MAP) 124/74 (91) 140/73 (95) Pulse Ox 93 95 O2 Delivery OxyMask OxyMask OxyMask OxyMask O2 Flow Rate 8 10 8 6 06/23/20 06/23/20 06/23/20 06/23/20 16:00 16:10 16:10 16:20 Resp 20 18 20 B/P (MAP) 147/77 (100) 136/81 (99) 139/103 (115) Pulse Ox 92 93 92 O2 Delivery OxyMask OxyMask OxyMask OxyMask O2 Flow Rate 6 4 4 4 06/23/20 06/23/20 06/23/20 06/23/20 16:20 16:30 16:30 16:45 Temp 37.5 Resp 15 B/P (MAP) 131/85 (100) Pulse Ox 92 O2 Delivery OxyMask OxyMask Nasal Cannula Nasal Cannula O2 Flow Rate 4 4 4 4 06/23/20 00:00 Intake Total 642 ml Output Total 1175 ml Balance -533 ml Weight (Pounds): 165 Weight (Ounces): 7.0 Weight (Calculated Kilograms): 74.743332 Constitutional: AAO x 3, well-developed, well-nourished Respiratory: No accessory muscle use, No respiratory distress; other (good air entry) Cardiovascular: irregularly irregular; No JVD; S1 and S2, systolic murmur Gastrointestional: tender, round, distended, audible bowel sounds Genital/Rectal: other (suprapubic catheter) Extremities: other, no lower extremity edema bilateral Neurologic/Psychiatric: other (moves all limbs equally) Skin: No rash on exposed areas, No ulcerations on exposed areas Results/Procedures: Labs Laboratory Tests 06/23/20 05:23: White Blood Count 10.4, Red Blood Count 3.92L, Hemoglobin 11.4L, Hematocrit 35, Mean Corpuscular Volume 90, Mean Corpuscular Hemoglobin 29, Mean Corpuscular Hemoglobin Concent 32, Red Cell Distribution Width 16.5H, Platelet Count 222, Mean Platelet Volume 9.9, Sodium Level 138, Potassium Level 3.7, Chloride Level 106, Carbon Dioxide Level 23, Anion Gap 9, Blood Urea Nitrogen 9, Creatinine 0.65, Estimat Glomerular Filtration Rate > 60, BUN/Creatinine Ratio 14, Glucose Level 144H, Calcium Level 8.5, Magnesium Level 1.5L Microbiology 06/22/20 MRSA Screen - Final, Complete 06/18/20 Urine Culture - Final, Complete 3 or more isolates 06/18/20 Blood Culture - Final, Complete No growth Laboratory Tests 06/22/20 05:25 06/23/20 05:23 A/P: Assessment: Abdominal pain and umbilical hernia - management per Surgical services R knee pain of undetermined etiology, managed by the [facility] CAD - s/p [address] Maza at [facility] in : GREY to LAD, SVG to OM1 and SVG to PDA. Cardiac cath of Oct 15, 2017 (done following an MPI that showed apical ischemia) showed widely patent aortocoronary graft to the distal RCA, widely patent aortocoronary graft to OM system, widely patent left internal mammary artery graft to the distal LAD, normal to hyperdynamic LV systolic function with an ejection fraction of approx 70%, normal LVEDP, no evidence of thoracic aortic aneurysm or dissection, mod-sized infrarenal abdom inal aortic aneurysm, mild prox stenosis of the left renal artery MPI on 06/21/20: mild ant-lat ischemia (technically difficult study due to significant patient motion) normal LVEF Echo on 06/20/20: LVEF 50-55%, biatrial enlargement, mild to mod TR, pulm htn ( PASP approx 60-65 mmHg) H/O GI bleed with hypovolemic shock during hospitalization of April 16, 2019. GI bleed due to a bleeding prepyloric ulcer (managed by Dr. Lemus) - no recurrence Carotid arterial disease; s/p R CEA with Dr Valenzuela at [facility] in Dec 2017; s/p L carotid PCI at [facility] in January 2018 (Dr Valenzuela). Mild carotid arterial disease on carotid u/s of Nov 2019 Chronic atrial fib, first documented on an ECG of 09/27/17 at [facility], rate currently fairly well controlled Eliquis for stroke prophylaxis H/o old lacunar infarction, including R internal capsule (based on w/u of Dec 2017 at [facility]) S/P right hip replacement Chronic diastolic CHF, clinically compensated Peripheral angiogram with runoffs of March 2018: Moderate-sized, infrarenal, saccular abdominal aortic aneurysm. A 70% ostial and proximal stenoses of the renal arteries on both sides. 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 Proximal occlusion of the right superficial femoral artery which reconstitutes via collaterals in its distal portion. There is a 2- vessel runoff in the leg. Multiple up to 75% stenoses in the mid and distal portions of the left superficial femoral artery. For these findings she was referred to [facility]. Arterial Doppler of both legs on 06/22/20: Bilateral lower extremity peripheral vascular disease. There are monophasic waveforms throughout the right lower extreme arterial system which can be seen with more proximal disease. There is a probable stenosis in the mid left SFA where there is some velocity elevation COPD Tobaccoism, quit 2009 HTN H/o hypothyroidism that is followed by her fam phy S/P suprapubic catheter placement per Dr. James on 11-26-2017 Plan: * Cardiac risk for noncardiac surgery is estimated to be intermediate. This was discussed with the patient. She understands and wishes to proceed if the surgery is considered necessary * I discussed her case with Dr Arreguin on 06/21/20 * Monitor labs * Replace electrolytes * Continue current cardiac regimen perioperatively. May hold Eliquis 48 hour p rior to procedure and resume NATALEE after surgery CHELLE GOETZ MD FACP [facility]S Jun 23, 2020 17:20
[2020-06-23] MEDS: ALPRAZolam 0.25 MG (XANAX) TAB PO PRN (17:45)
[2020-06-23] MEDS: LACTATED RINGERS 1,000 ML IV SCH (18:09)
--- NOTE | 2020-06-23 18:59 | Progress Note ---
Subjective Subjective/Events-last exam Patient sleepy from surgery. HDS Review of Systems Unable to obtain due to sedation Objective Exam Last Set of Vital Signs Vital Signs Date Time Temp Pulse Resp B/P (MAP) Pulse Ox O2 Delivery O2 Flow Rate FiO2 06/23/20 18:20 37.8 06/23/20 17:27 89 16 145/76 (99) 96 Vapotherm 35.00 60.00 06/23/20 17:25 70 Capillary Refill : Less Than 3 SecondsLess Than 3 Seconds I&O Intake and Output 06/23/20 00:00 Intake Total 792 ml Output Total 1575 ml Balance -783 ml Intake Oral 792 ml Output Urine Total 1575 ml # Bowel Movements 1 General: Other (Sedated, opens eyes but will not answer questions) HEENT: Mucous Memb Moist/Eschbach Lungs: Clear to Auscultation, Normal Air Movement Heart: Regular Rate, No Murmurs Abdomen: Soft Extremities: Other (2+ pitting edema bilaterally R>L) Results/Procedures Lab Laboratory Tests 06/23/20 05:23: White Blood Count 10.4, Red Blood Count 3.92L, Hemoglobin 11.4L, Hematocrit 35, Mean Corpuscular Volume 90, Mean Corpuscular Hemoglobin 29, Mean Corpuscular Hemoglobin Concent 32, Red Cell Distribution Width 16.5H, Platelet Count 222, Mean Platelet Volume 9.9, Sodium Level 138, Potassium Level 3.7, Chloride Level 106, Carbon Dioxide Level 23, Anion Gap 9, Blood Urea Nitrogen 9, Creatinine 0.65, Estimat Glomerular Filtration Rate > 60, BUN/Creatinine Ratio 14, Glucose Level 144H, Calcium Level 8.5, Magnesium Level 1.5L Microbiology 06/22/20 MRSA Screen - Final, Complete 06/18/20 Urine Culture - Final, Complete 3 or more isolates 06/18/20 Blood Culture - Final, Complete No growth Radiology NAME: JULES REYES [facility] REC#: [id number] PT STATUS: REG ER : 1935 PHYSICIAN: TARA SOTO MD ADMIT DATE: 06/18/20/ER Signed Date of Exam:06/18/20 CT ABDOMEN/PELVIS W EXAMINATION: CT Abdomen and Pelvis with intravenous contrast. TECHNIQUE: Multiple contiguous axial images were obtained through the abdomen and pelvis after the uneventful administration of intravenous contrast. All CT scans use one or more of the following dose optimizing techniques: automated exposure control, MA and/or KvP adjustment based on a patient size and exam type, or iterative reconstruction. HISTORY: Lower abdominal pain. COMPARISON: 04/16/2019 FINDINGS: Limited views of the lower thorax show mild reticulations consistent with mild nonspecific fibrosis. Coronary arteries are calcified. The liver is normal without focal lesion. There is no biliary ductal dilation. Gallbladder is normal. Pancreas is normal. Spleen is normal. Adrenal glands are normal. There are small cysts in both kidneys. No suspicious renal lesions. There is no hydronephrosis. Bladder is decompressed by suprapubic catheter. Visualized bowel is normal in caliber without obstruction or inflammation. There is a large duodenal diverticulum. There is a fat-containing umbilical hernia. It appears similar to prior exam. No free fluid or air. No abdominal or pelvic lymphadenopathy. There is a stable 4.2 cm abdominal aortic aneurysm. 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 Right superficial femoral artery is occluded past its origin. There are no suspicious osseous lesions. There is a right total hip arthroplasty. There is a chronic L3 compression fracture which is mild. IMPRESSION: 1. Fat-containing umbilical hernia is unchanged. 2. Stable 4.2 cm abdominal aortic aneurysm and right common iliac artery aneurysm. Dictated by: Dictated on workstation # [id number] Dict: 06/18/20 1155 Trans: 06/18/20 1204 [facility] [id number] Interpreted by: EVELINE BLANCO MD Electronically signed by: EVELINE BLANCO MD 06/18/20 1204 Assessment/Plan Assessment/Plan Assessment & Plan get US of R leg to make sure no clot has formed. (1) Umbilical hernia, incarcerated Status: Acute Assessment & Plan: 06/21: Plan per Dr Arreguin, awaiting pre surgical evaluation 06/22: Plan for surgery tomorrow 06/23: Surgery today (2) Atrial fibrillation Status: Chronic Assessment & Plan: 06/21: Appreciate Dr Torrez seeing patient for preop evaluation 06/23: Rate controlled Qualifiers: Qualified Codes: I48.0 - Paroxysmal atrial fibrillation (3) Coronary artery disease Status: Chronic Qualifiers: Qualified Codes: I25.10 - Atherosclerotic heart disease of [place] coronary artery without angina pectoris (4) Right knee pain Status: Acute Assessment & Plan: 06/21: Venous dopplers neg today, patient with h/o arterial disease and was referred to [facility] 06/22: Likely 2/2 to arterial disease, good cap refill in foot Qualifiers: Qualified Codes: M25.561 - Pain in right knee (5) HTN (hypertension) Status: Chronic Qualifiers: Qualified Codes: I10 - Essential (primary) hypertension (6) H/O: CVA (cerebrovascular accident) Status: Chronic (7) Hypoxia Status: Acute Assessment & Plan: - Continue to titrate as tolerated (8) DVT prophylaxis Status: Acute Assessment & Plan: - Patient on Eliquis, plan to d/c 48hrs prior to surgery Clinical Quality Measures DVT/VTE Risk/Contraindication: Risk Factor Score Per Nursin RFS Level Per Nursing on Admit: 4+=Very High ASYA BURLESON MD Jun 23, 2020 18:59
[2020-06-23] MEDS: ONDANSETRON 4 MG/2 ML (SDV) Z0FRAN IVP PRN (20:59)
[2020-06-23] MEDS: HYDROcodone/APAP 7.5 MG/325 MG (LORTAB, LORCET PLUS) TABLET PO PRN (20:59)
--- NOTE | 2020-06-23 22:26 | OPERATIVE REPORT ---
DATE OF SERVICE: 06/23/2020 ATTENDING PRIMARY CARE PHYSICIAN: Dr. Itz Chacon. PREOPERATIVE DIAGNOSIS: Symptomatic incarcerated umbilical hernia. POSTOPERATIVE DIAGNOSIS: Symptomatic incarcerated umbilical hernia. PROCEDURE: Open incarcerated umbilical hernia repair with mesh. SURGEON: Libby Etienne MD UNIVERSITY COUNSELOR: Michael Garay APRN ANESTHESIA: General endotracheal. ESTIMATED BLOOD LOSS: Minimal. FINDINGS: Omentum within the hernia sac. No strangulation. DISPOSITION: The patient tolerated the procedure well. INDICATIONS: The patient is an 84-year-old female who presented to the Emergency Department with pain in the periumbilical region. She is a poor historian and it appears that she does have some level of dementia. The history acquired was that she had this known history of umbilical hernia, however, had grown larger in size and become more painful and nonreducible. She was admitted and scheduled for surgery. We requested medical clearance and they recommended a cardiac clearance and the patient underwent a cardiac evaluation with a stress test, which she passed without any difficulty. She is otherwise eating well and having normal bowel movements and not showing any signs of obstruction. DESCRIPTION OF PROCEDURE: The patient was brought to the operating room, laid supine on the table. After adequate IV pain and stated medications and general endotracheal intubation, the abdomen was prepped and draped in standard surgical fashion. A 0.5% Marcaine with epinephrine was then used to anesthetize the overlying skin in the infraumbilical rim and a crescent shaped skin incision made using a 15 blade. The subcutaneous tissue was then opened using electrocautery. The hernia sac was identified and completely dissected out using electrocautery as well as blunt dissection. We proceeded with our dissection, which until we reached the fascia. The defect was approximately 2.5 cm in size. The hernia sac was then opened using electrocautery with only omentum within the hernia sac. Hernia sac was then completely excised using electrocautery under direct visualization with visualization of good hemostasis. An 8 cm round-coated polypropylene mesh was then placed into the defect and then 0 Prolene interrupted transfascial sutures were placed concentrically around the mesh to the fascia with visualization of good hemostasis. The subcutaneous tissue was then reapproximated using Vicryl interrupted sutures. Skin was closed using 4-0 Monocryl running subcuticular suture. Wound was then cleaned and covered with Dermabond. The umbilicus was then filled with tonsil sponges followed by 4 x 4 gauze followed by large Op-Site followed by an abdominal binder. The patient tolerated the procedure well. We will start IV normal pain medication as well as a regular diet. When she is tolerating a diet, has pain control with oral pain medication, she may be discharged home. Job ID: [id number] DocumentID: [id number] Dictated Date: 06/23/2020 15:26:25 Professor Of Vegetable Science Date: 06/23/2020 22:26:03 Dictated By: LIBBY ETIENNE MD MTDD
[2020-06-24] VITALS: BP 145/76
[2020-06-24] MEDS: morphine INJ 4 MG/ML 1 ML (VIAL/SYRINGE) IVP PRN ×2 (00:05→03:41)
[2020-06-24] MEDS: HYDROcodone/APAP 7.5 MG/325 MG (LORTAB, LORCET PLUS) TABLET PO PRN ×3 (03:41→13:53)
[2020-06-24 06:38] LABS: HEMOGLOBIN 8.9 G/DL (11.5-16.0); MEAN PLATELET VOLUME 9.8 FL (7.4-10.4); RED CELL DISTRIBUTION WIDTH 16.2 % (10.0-14.5); WHITE BLOOD COUNT 11.2 10^3/uL (4.3-11.0)
[2020-06-24 07:02] LABS: ALANINE AMINOTRANSFERASE 11 U/L (0-55); ALBUMIN 3.2 GM/DL (3.2-4.5); ALKALINE PHOSPHATASE 62 U/L (40-136); BILIRUBIN,TOTAL 0.5 MG/DL (0.1-1.0); BUN/CREATININE RATIO 16; CALCIUM 8.9 MG/DL (8.5-10.1); CARBON DIOXIDE 24 MMOL/L (21-32); CHLORIDE 103 MMOL/L (98-107); CREATININE SERUM 0.67 MG/DL (0.60-1.30); GFR ESTIMATED > 60; GLUCOSE 202 MG/DL (70-105); MAGNESIUM 1.9 MG/DL (1.6-2.4); SODIUM 137 MMOL/L (135-145); TOTAL PROTEIN 6.2 GM/DL (6.4-8.2)
[2020-06-24] MEDS: RT-ALBUTEROL SULF 2.5 MG/3 ML PRE-MIX VIAL INH SCH ×3 (07:36→14:00)
[2020-06-24 08:00] VITALS: BP 159/89
[2020-06-24] MEDS ORDERED: polyethylene glycoL POWDER 17 GM (MIRALAX) PACK PO ONE (08:00)
[2020-06-24] MEDS ORDERED: ALPRAZolam 0.25 MG (XANAX) TAB PO PRN (08:00)
[2020-06-24] MEDS: ASPIRIN 81 MG CHEW (CHILDREN'S ASA) PO SCH (08:53)
[2020-06-24] MEDS ORDERED: SENNA W/DOCUSATE (SENOKOT S) TABLET PO SCH (09:00)
[2020-06-24] MEDS ORDERED: GABAPENTIN 100 MG (NEURONTIN) CAP PO SCH (09:00)
--- NOTE | 2020-06-24 09:29 | Progress Note ---
Subjective Date Seen by a Provider: Jun 24, 2020 Time Seen by a Provider: 09:25 Subjective/Events-last exam doing well. pain controlled. tolerating diet. no nausea/vomiting. Objective Exam Vital Signs Date Time Temp Pulse Resp B/P (MAP) Pulse Ox O2 Delivery O2 Flow Rate FiO2 06/24/20 08:00 36.3 122 20 159/89 (112) 90 Vapotherm 35.00 60.00 06/24/20 07:36 94 Vapotherm 20.00 50 06/24/20 00:00 36.4 108 21 145/76 (99) 93 Vapotherm 35.00 60.00 06/23/20 20:00 Vapotherm 35.00 60 06/23/20 18:59 92 Vapotherm 06/23/20 18:20 37.8 06/23/20 17:27 37.8 89 16 145/76 (99) 96 Vapotherm 35.00 60.00 06/23/20 17:25 90 Vapotherm 35.00 70 06/23/20 16:45 Nasal Cannula 4 06/23/20 16:30 37.5 15 131/85 (100) 92 Nasal Cannula 4 06/23/20 16:30 OxyMask 4 06/23/20 16:20 OxyMask 4 06/23/20 16:20 20 139/103 (115) 92 OxyMask 4 06/23/20 16:10 OxyMask 4 06/23/20 16:10 18 136/81 (99) 93 OxyMask 4 06/23/20 16:00 20 147/77 (100) 92 OxyMask 6 06/23/20 15:50 OxyMask 6 06/23/20 15:50 15 140/73 (95) 95 OxyMask 8 06/23/20 15:40 36.6 18 124/74 (91) 93 OxyMask 10 06/23/20 15:40 OxyMask 8 06/23/20 14:54 36.36245 I & O 06/24/20 07:00 Intake Total 3140 ml Output Total 2400 ml Balance 740 ml Capillary Refill : Less Than 3 SecondsLess Than 3 Seconds General Appearance: No Apparent Distress Neck: Full Range of Motion Respiratory: Chest Non Tender, Lungs Clear, Decreased Breath Sounds Cardiovascular: Regular Rate, Rhythm Gastrointestinal: soft, tenderness Extremity: Normal Capillary Refill Neurologic/Psychiatric: Alert Skin: Normal Color Lymphatic: No Adenopathy Results Lab Laboratory Tests 06/24/20 06:27: White Blood Count 11.2H, Red Blood Count 3.09L, Hemoglobin 8.9#L, Hematocrit 28L , Mean Corpuscular Volume 90, Mean Corpuscular Hemoglobin 29, Mean Corpuscular Hemoglobin Concent 32, Red Cell Distribution Width 16.2H, Platelet Count 302, Mean Platelet Volume 9.8, Sodium Level 137, Potassium Level 4.0, Chloride Level 103, Carbon Dioxide Level 24, Anion Gap 10, Blood Urea Nitrogen 11, Creatinine 0.67, Estimat Glomerular Filtration Rate > 60, BUN/Creatinine Ratio 16, Glucose Level 202H, Calcium Level 8.9, Corrected Calcium 9.5, Magnesium Level 1.9, Total Bilirubin 0.5, Aspartate Amino Transf (AST/SGOT) 12, Alanine Aminotransferase (ALT/SGPT) 11, Alkaline Phosphatase 62, Total Protein 6.2L, Albumin 3.2 Microbiology 06/22/20 MRSA Screen - Final, Complete 06/18/20 Urine Culture - Final, Complete 3 or more isolates 06/18/20 Blood Culture - Final, Complete No growth Assessment/Plan Assessment/Plan Assess & Plan/Chief Complaint sx non-reducible umbilical hernia s/p repair with mesh. appears to have some level of underlying dementia. IS and ambulate. abd binder on for next 2 weeks except to shower. ok for d/c when ok with medical. Clinical Quality Measures DVT/VTE Risk/Contraindication: Risk Factor Score Per Nursin RFS Level Per Nursing on Admit: 4+=Very High LES ETIENNE MD Jun 24, 2020 09:29
--- NOTE | 2020-06-24 10:07 | NUR ---
DISCHARGE PLANNING: Dr. Arreguin is discharging the patient back to [facility] today. She will need SKILLED due to having had surgery with abdominal wound. Asked him to do the skilled orders.
--- NOTE | 2020-06-24 10:19 | Physician Query Clarification ---
"Physician Query-General Query to Physician: The medical record reflects the following clinical scenario: History/Risk factors: COPD, Recent surgery Clinical Findings: on 2L NC prior to procedure, 02 sats 90, O2 needs increased to 50- 70% for greater than 12 hours post procedure. Treatment: Vapotherm/high flow 02, Breathing RX, IS Question: What condition best reflects the above clinical scenario? Please document response in the Progress notes or Discharge Summary. 1. Post procedural Respiratory Failure 2. Hypoxia (as currently documented) 3. Other , with explanation of the clinical findings 4. Clinically undetermined, no explanation for the clinical findings Please remember a lack of response to the above will prompt a phone page by CDI/coding staff In responding to this query, please exercise your independent professional judgment. The purpose of this communication is to more accurately reflect the complexity of your patients condition. The fact that a question is asked does not imply that any particular answer is desired or expected. Thank you for timely response to this clarification. Deidra Michel, MSN, RN RN Specialist-Clinical Doc Improvement CD -Health Info Mgmt Operations [address] [facility] t: [phone] | f: [phone] If you are unable to reach me at my extension, I may be working from home. Please contact me at [phone] PHYSICIAN RESPONSE: Based on the clinical findings in the record, please respond to the query above on this document as an addendum. Physician Response: Physician Response 1. If you have questions please contact: Clinical Applications Specialist: Ext: Thank you for your time and cooperation. Clinical Boat Canvas Maker And Installer/Clinical Applications Specialist This is a permanent part of the medical record DEIDRA MICHEL Jun 24, 2020 10:19 LES ETIENNE MD Jun 24, 2020 11:01"
--- NOTE | 2020-06-24 11:33 | NUR ---
CM DISCHARGE PLANNING: Visited with Sanjuanita. She doesn't have any concerns about discharging to [facility] today. Kelsey Dale was also visiting with her and having her sign the Important Message from Medicare. Contacted [facility] Myrtle and set up a curing pickling packer time for the patient at 2p.m. Michael KC has completed skilled admission orders and gave instructions for the dressing changes as well. Discharge paper work updated, printed, and faxed to [facility]. V staff will bring oxygen for transport. No further needs or requests at this time.
--- NOTE | 2020-06-24 11:45 | NUR ---
Important Message from Medicare presented, reviewed, signed and placed in patient chart. Patient voiced no intention to appeal and deny any needs or further questions at this time.
--- NOTE | 2020-06-24 12:18 | Discharge Inst-Skilled Nursing ---
Discharge Inst-Skilled NF Reconcile Patient Problems Problems Reviewed?: Yes Consult/Follow Up/Orders Skilled NF Admit to: [facility] Certification (SNF) I certify that SNF services are required to be given on an inpatient basis because of the above named patient's need for retirement care on a continuing basis for the conditions(s) for which he/she was receiving inpatient hospital services prior to his/her transfer to the SNF. Fpc Facility Order: Nursing Services, Mobile Security Specialist-Evaluate & Treat, Physical Therapy-Evaluate & Treat, Wound Care-Eval/Treat Oxygen Delivery Method: High Flow N/C Discharge Diet: Regular Diet New & Resume Previous Orders Michael العراقي Jun 24, 2020 12:16 MICHAEL العراقي APRN Jun 24, 2020 12:18
--- NOTE | 2020-06-24 12:51 | Progress Note ---
Subjective Subjective/Events-last exam Patient doing better this AM. Still had some episodes of pain and anxiety overnight. No BM for 3 days. Tolerating PO diet Review of Systems Pulmonary: No Dyspnea, No Cough Cardiovascular: No: Chest Pain, Palpitations Gastrointestinal: Constipation; No: Nausea, Vomiting, Abdominal Pain Neurological: Weakness, Incoordination Objective Exam Last Set of Vital Signs Vital Signs Date Time Temp Pulse Resp B/P (MAP) Pulse Ox O2 Delivery O2 Flow Rate FiO2 06/24/20 10:43 91 High Flow N/C 7.00 06/24/20 10:33 50 06/24/20 08:00 36.3 122 20 159/89 (112) Capillary Refill : Less Than 3 SecondsLess Than 3 Seconds I&O Intake and Output 06/24/20 00:00 Intake Total 3840 ml Output Total 2350 ml Balance 1490 ml Intake Oral 540 ml IV Total 3300 ml Output Urine Total 2350 ml General: Alert, Cooperative Lungs: Clear to Auscultation, Normal Air Movement Heart: Regular Rate, No Murmurs Abdomen: Soft, Other (mild ttp around surgical site) Extremities: No Edema, No Tenderness/Swelling Neuro: Normal Speech, Sensation Intact, Cranial Nerves 3-12 NL Results/Procedures Lab Laboratory Tests 06/24/20 06:27: White Blood Count 11.2H, Red Blood Count 3.09L, Hemoglobin 8.9#L, Hematocrit 28L , Mean Corpuscular Volume 90, Mean Corpuscular Hemoglobin 29, Mean Corpuscular Hemoglobin Concent 32, Red Cell Distribution Width 16.2H, Platelet Count 302, Mean Platelet Volume 9.8, Sodium Level 137, Potassium Level 4.0, Chloride Level 103, Carbon Dioxide Level 24, Anion Gap 10, Blood Urea Nitrogen 11, Creatinine 0.67, Estimat Glomerular Filtration Rate > 60, BUN/Creatinine Ratio 16, Glucose Level 202H, Calcium Level 8.9, Corrected Calcium 9.5, Magnesium Level 1.9, Total Bilirubin 0.5, Aspartate Amino Transf (AST/SGOT) 12, Alanine Aminotransferase (ALT/SGPT) 11, Alkaline Phosphatase 62, Total Protein 6.2L, Albumin 3.2 Microbiology 06/22/20 MRSA Screen - Final, Complete 06/18/20 Urine Culture - Final, Complete 3 or more isolates 06/18/20 Blood Culture - Final, Complete No growth Radiology NAME: JULES REYES [facility]#: [id number] PT STATUS: REG ER : 1935 PHYSICIAN: TARA SOTO MD ADMIT DATE: 06/18/20/ER Signed Date of Exam:06/18/20 CT ABDOMEN/PELVIS W EXAMINATION: CT Abdomen and Pelvis with intravenous contrast. TECHNIQUE: Multiple contiguous axial images were obtained through the abdomen and pelvis after the uneventful administration of intravenous contrast. All CT scans use one or more of the following dose optimizing techniques: automated exposure control, MA and/or KvP adjustment based on a patient size and exam type, or iterative reconstruction. HISTORY: Lower abdominal pain. COMPARISON: 04/16/2019 FINDINGS: Limited views of the lower thorax show mild reticulations consistent with mild nonspecific fibrosis. Coronary arteries are calcified. The liver is normal without focal lesion. There is no biliary ductal dilation. Gallbladder is normal. Pancreas is normal. Spleen is normal. Adrenal glands are normal. There are small cysts in both kidneys. No suspicious renal lesions. There is no hydronephrosis. Bladder is decompressed by suprapubic catheter. Visualized bowel is normal in caliber without obstruction or inflammation. There is a large duodenal diverticulum. There is a fat-containing umbilical hernia. It appears similar to prior exam. No free fluid or air. No abdominal or pelvic lymphadenopathy. There is a stable 4.2 cm abdominal aortic aneurysm. 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 Right superficial femoral artery is occluded past its origin. There are no suspicious osseous lesions. There is a right total hip arthroplasty. There is a chronic L3 compression fracture which is mild. IMPRESSION: 1. Fat-containing umbilical hernia is unchanged. 2. Stable 4.2 cm abdominal aortic aneurysm and right common iliac artery aneurysm. Dictated by: Dictated on workstation # [id number] Dict: 06/18/20 1155 Trans: 06/18/20 1204 [facility] [id number] Interpreted by: EVELINE BLANCO MD Electronically signed by: EVELINE BLANCO MD 06/18/20 1204 Assessment/Plan Assessment/Plan Assessment & Plan get US of R leg to make sure no clot has formed. (1) Umbilical hernia, incarcerated Status: Acute Assessment & Plan: 06/21: Plan per Dr Arreguin, awaiting pre surgical evaluation 06/22: Plan for surgery tomorrow 06/23: Surgery today 06/24: Doing better post op (2) Atrial fibrillation Status: Chronic Assessment & Plan: 06/21: Appreciate Dr Torrez seeing patient for preop evaluation 06/23: Rate controlled Qualifiers: Qualified Codes: I48.0 - Paroxysmal atrial fibrillation (3) Coronary artery disease Status: Chronic Qualifiers: Qualified Codes: I25.10 - Atherosclerotic heart disease of [place] coronary artery without angina pectoris (4) Right knee pain Status: Acute Assessment & Plan: 06/21: Venous dopplers neg today, patient with h/o arterial disease and was referred to [facility] 06/22: Likely 2/2 to arterial disease, good cap refill in foot 06/24: Peripheral vascular dz, started gabapentin, continue norco with bowel meds Qualifiers: Qualified Codes: M25.561 - Pain in right knee (5) HTN (hypertension) Status: Chronic Qualifiers: Qualified Codes: I10 - Essential (primary) hypertension (6) H/O: CVA (cerebrovascular accident) Status: Chronic (7) Hypoxia Status: Acute Assessment & Plan: - Continue to titrate as tolerated (8) DVT prophylaxis Status: Acute Assessment & Plan: - Patient on Eliquis, plan to d/c 48hrs prior to surgery Clinical Quality Measures DVT/VTE Risk/Contraindication: Risk Factor Score Per Nursin RFS Level Per Nursing on Admit: 4+=Very High ASYA BURLESON MD Jun 24, 2020 12:51
--- NOTE | 2020-06-24 12:53 | Progress Note - Cardiology ---
Cardiology SOAP Progress Note Subjective: Lying in bed. More alert and comfortable today. States she feels good this morning. Objective: I&O/Vital Signs Weight (Pounds): 165 Weight (Ounces): 7.0 Weight (Calculated Kilograms): 74.551715 Constitutional: AAO x 3, well-developed, well-nourished Respiratory: No accessory muscle use, No respiratory distress; other (good air entry) Cardiovascular: irregularly irregular; No JVD; S1 and S2, systolic murmur Gastrointestional: other (post surgical abdomen, did not palpate) Genital/Rectal: other (suprapubic catheter) Extremities: other, no lower extremity edema bilateral Neurologic/Psychiatric: other (moves all limbs equally) Skin: No rash on exposed areas, No ulcerations on exposed areas Results/Procedures: Labs Microbiology 06/22/20 MRSA Screen - Final, Complete 06/18/20 Urine Culture - Final, Complete 3 or more isolates 06/18/20 Blood Culture - Final, Complete No growth A/P: Assessment: S/P umbilical hernia repair on 06-23-[address] Kallie Loyola knee pain of undetermined etiology, managed by the [facility] CAD - s/p [address] Maza at [facility] in : GREY to LAD, SVG to OM1 and SVG to PDA. Cardiac cath of Oct 15, 2017 (done following an MPI that showed apical ischemia) showed widely patent aortocoronary graft to the distal RCA, widely patent aortocoronary graft to OM system, widely patent left internal mammary artery graft to the distal LAD, normal to hyperdynamic LV systolic function with an ejection fraction of approx 70%, normal LVEDP, no evidence of thoracic aortic aneurysm or dissection, mod-sized infrarenal abdom inal aortic aneurysm, mild prox stenosis of the left renal artery MPI on 06/21/20: mild ant-lat ischemia (technically difficult study due to significant patient motion) normal LVEF Echo on 06/20/20: LVEF 50-55%, biatrial enlargement, mild to mod TR, pulm htn (PASP approx 60-65 mmHg) H/O GI bleed with hypovolemic shock during hospitalization of April 16, 2019. GI bleed due to a bleeding prepyloric ulcer (managed by Dr. Lemus) - no recurrence Carotid arterial disease; s/p R CEA with Dr Valenzuela at [facility] in Dec 2017; s/p L carotid PCI at [facility] in January 2018 (Dr Valenzuela). Mild carotid ar terial disease on carotid u/s of Nov 2019 Chronic atrial fib, first documented on an ECG of 09/27/17 at [facility], rate currently fairly well controlled Eliquis for stroke prophylaxis H/o old lacunar infarction, including R internal capsule (based on w/u of Dec 2017 at [facility]) S/P right hip replacement Chronic diastolic CHF, clinically compensated Peripheral angiogram with runoffs of March 2018: Moderate-sized, infrarenal, saccular abdominal aortic aneurysm. A 70% ostial and proximal stenoses of the renal arteries on both sides. 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 Proximal occlusion of the right superficial femoral artery which reconstitutes via collaterals in its distal portion. There is a 2-vessel runoff in the leg. Multiple up to 75% stenoses in the mid and distal portions of the left superficial femoral artery. For these findings she was referred to [facility]. Arterial Doppler of both legs on 06/22/20: Bilateral lower extremity peripheral vascular disease. There are monophasic waveforms throughout the right lower extreme arterial system which can be seen with more proximal disease. There is a probable stenosis in the mid left SFA where there is some velocity elevation COPD Tobaccoism, quit 2009 HTN H/o hypothyroidism that is followed by her fam phy S/P suprapubic catheter placement per Dr. James on 11-26-2017 Plan: * Resume Eliquis for stroke prophylaxis if ok with surgical services * Monitor labs * Replace electrolytes * Mild post-op anemia - management per medical/surgical services SATHISH ABAD Jun 24, 2020 12:53
[2020-06-24 14:30] VITALS: BP 159/89
== END 2020-06-24 14:30 | DRG 353 ==
LOC: EDUNIT# 10:37 → ER 10:39 → 4TH 14:20
PROVIDERS: ADMIT Surgery; ATTEND Surgery
PROC: 0WUF0JZ Supplement Abdominal Wall with Synthetic Substitute, Open Approach (ICD-10-PCS; principal; 2020-06-23 14:33)
DX: K42.0 Umbilical hernia with obstruction, without gangrene (principal); J95.821 Acute postprocedural respiratory failure; I50.32 Chronic diastolic (congestive) heart failure; I48.20 Chronic atrial fibrillation, unspecified; I11.0 Hypertensive heart disease with heart failure; J44.9 Chronic obstructive pulmonary disease, unspecified; I70.203 Unspecified atherosclerosis of native arteries of extremities, bilateral legs; I70.1 Atherosclerosis of renal artery; I25.10 Atherosclerotic heart disease of native coronary artery without angina pectoris; E11.9 Type 2 diabetes mellitus without complications; E78.00 Pure hypercholesterolemia, unspecified; K21.9 Gastro-esophageal reflux disease without esophagitis; M19.91 Primary osteoarthritis, unspecified site; F41.0 Panic disorder [episodic paroxysmal anxiety]; F41.9 Anxiety disorder, unspecified; F32.9 Major depressive disorder, single episode, unspecified; I71.4 Abdominal aortic aneurysm, without rupture; I72.3 Aneurysm of iliac artery; R09.02 Hypoxemia; M79.604 Pain in right leg; F03.90 Unspecified dementia, unspecified severity, without behavioral disturbance, psychotic disturbance, mood disturbance, and anxiety; I08.2 Rheumatic disorders of both aortic and tricuspid valves; H91.10 Presbycusis, unspecified ear; Z79.01 Long term (current) use of anticoagulants; Z87.891 Personal history of nicotine dependence; Z86.73 Personal history of transient ischemic attack (TIA), and cerebral infarction without residual deficits; Z95.1 Presence of aortocoronary bypass graft; Z90.49 Acquired absence of other specified parts of digestive tract; Z90.89 Acquired absence of other organs; Z90.710 Acquired absence of both cervix and uterus
CPT/HCPCS: 36415; 51702; 71045; 74177; 78452; 80048; 80053; 81000; 83605; 83735; 85025; 85027; 85610; 85730; 87040; 87081; 87088; 87635; 93005; 93017; 93306; 93925; 94640; 94760; 96361; 96374; 96375; 96376

== ENCOUNTER 2021-09-06 15:07 | Emergency (ER) | payer MEDICARE, MEDICAID ==
[~2021-09-06] VITALS: Ht 162 cm; Wt 83.6 kg
[~2021-09-06 15:07] MED LIST changes: +APIX2.5T PO; +BENZ9GEL3 MM; +DILT300C36 PO; +ESCI20TA39 PO; -ESCI20TA45 PO; +FERR325T18 PO; +FERR325T5 PO; +HYDR-3817 PO; +MTP25TSR PO; -OXYC-465 PO; +OXYC-556 PO; -PANT40TA3 PO; +PANT40TA52 PO; -POLY17PO31 PO; +POLY17PO54 PO; +PROP1.5D OU; +SERT-413 PO; +SERT100T PO; -SERT50TA9 PO
[2021-09-06] MEDS ORDERED: fentaNYL INJ 100 MCG/2 ML AMP IVP ONE ×2 (15:30→18:00)
[2021-09-06 15:33] LABS: BASOPHILS % (AUTO) 0 % (0-10); EOSINOPHILS # (AUTO) 0.3 10^3/uL (0.0-0.3); EOSINOPHILS % (AUTO) 4 % (0-10); HEMATOCRIT 31 % (35-52); HEMOGLOBIN 9.5 g/dL (11.5-16.0); LYMPHOCYTES # (AUTO) 1.1 10^3/uL (1.0-4.0); LYMPHOCYTES % (AUTO) 12 % (12-44); MEAN CORPUSCULAR HEMOGLOBIN 25 pg (25-34); MEAN CORPUSCULAR HGB CONC 30 g/dL (32-36); MEAN CORPUSCULAR VOLUME 82 fL (80-99); MEAN PLATELET VOLUME 9.7 fL (9.0-12.2); MONOCYTES # (AUTO) 0.8 10^3/uL (0.0-1.0); MONOCYTES % (AUTO) 9 % (0-12); NEUTROPHILS # (AUTO) 6.7 10^3/uL (1.8-7.8); NEUTROPHILS % (AUTO) 75 % (42-75); PLATELET COUNT 335 10^3/uL (130-400); WHITE BLOOD COUNT 8.9 10^3/uL (4.3-11.0)
[2021-09-06 16:06] LABS: ALBUMIN 3.4 GM/DL (3.2-4.5); BILIRUBIN,TOTAL 0.3 MG/DL (0.1-1.0); CALCIUM 9.4 MG/DL (8.5-10.1); CREATININE SERUM 0.79 MG/DL (0.60-1.30); POTASSIUM 5.2 MMOL/L (3.6-5.0); TOTAL PROTEIN 8.3 GM/DL (6.4-8.2)
[2021-09-06 16:39] LABS: BILIRUBIN,URINE NEGATIVE (NEGATIVE); CLARITY,URINE CLOUDY; COLOR,URINE YELLOW; GLUCOSE, URINE (UA) NEGATIVE (NEGATIVE); KETONES,URINE TRACE (NEGATIVE); LEUKOCYTE ESTERASE ,URINE 2+ (NEGATIVE); NITRITE,URINE POSITIVE (NEGATIVE); PH,URINE 5.5 (5-9); PROTEIN,URINE NEGATIVE (NEGATIVE)
[2021-09-06 16:49] LABS: BACTERIA,URINE MODERATE /HPF; RBC,URINE 0-2 /HPF; SQUAMOUS EPITHELIAL CELL,UR 0-2 /HPF
[2021-09-06] MEDS ORDERED: NS IV 1000 ML 1,000 ML IV SCH (17:00)
[2021-09-06] MEDS ORDERED: NS 100 ML (IVPB) BAG IV ONE (17:15)
[2021-09-06] MEDS ORDERED: HOLD METFORMIN - RECEIVED CONTRAST 20 ML VIAL IV SCH (17:15)
[2021-09-06] MEDS ORDERED: IOHEXOL 350 MG/ML 100 ML (OMNIPAQUE 350) VIAL IV ONE (17:15)
--- NOTE | 2021-09-06 17:55 | Diagnostic Imaging Report ---
EXAMINATION: CT abdomen and pelvis with intravenous contrast. TECHNIQUE: Multiple contiguous axial images were obtained through the abdomen and pelvis after the uneventful administration of intravenous contrast. All CT scans use one or more of the following dose optimizing techniques: automated exposure control, MA and/or KvP adjustment based on patient size and exam type or iterative reconstruction. HISTORY: Right flank pain. COMPARISON: 06/18/2020. FINDINGS: Lung bases: Emphysema or fibrosis in the lung bases. Solid organs: The liver is normal without focal lesion. The gallbladder is normal. There is no biliary ductal dilation. Pancreas is normal. Spleen is normal. Adrenal glands are normal. Bilateral renal cortical cysts are present requiring no follow-up. There is no hydronephrosis. Bowel: The stomach and small bowel are normal without obstruction. The colon is unremarkable. No finding of acute appendicitis. Peritoneum: There is no intraperitoneal free fluid or free air. No suspicious lymphadenopathy. Vasculature: Vascular calcifications of the aorta. There is aneurysmal dilatation of the infrarenal abdominal aorta measuring up to 4.4 cm. 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 Musculoskeletal: Multilevel degenerative changes of the spine without suspicious osseous lesion or compression fracture. Surgical changes from right hip arthroplasty. Right abdominal wall fat-containing hernia. Pelvis: The uterus is surgically absent. No adnexal mass. The urinary bladder is decompressed through a suprapubic catheter. IMPRESSION: 1. No acute abnormality in the abdomen or pelvis. 2. Stable aneurysmal dilatation of the abdominal aorta. Dictated by: Dictated on workstation # [id number]
[2021-09-06] MEDS ORDERED: ORPHENADRINE 60 MG/2 ML (NORFLEX) AMP (ED ONLY) IV ONE (18:15)
[2021-09-06] MEDS ORDERED: KETOROLAC 30 MG/ML VIAL IVP ONE (18:15)
[2021-09-06] MEDS ORDERED: cefTRIAXone 1,000 MG in WATER (STERILE) FOR INJECTION 10 ML IV ONE (18:45)
[2021-09-06] MEDS ORDERED: WATER (STERILE) FOR INJECTION 10 ML ONE (18:51)
[2021-09-06] MEDS ORDERED: RX-CYCLOBENZAPRINE 10 MG (FLEXERIL) TAB PPK#3 PO STA (19:03)
[2021-09-06] MEDS ORDERED: DOCU-143 PO (19:12)
[2021-09-06] MEDS ORDERED: ACHD5005 PO (19:12)
[2021-09-06] MEDS ORDERED: CYCL5TAB PO (19:12)
--- NOTE | 2021-09-06 19:12 | ED General ---
General Chief Complaint: Back Problems Stated Complaint: BACK AND LEG PAIN Nursing Triage Note: TO ED FROM [facility] PATIENT REPORTS LOW BACK PAIN AND [facility] REPORTED PAIN IN R HIP WITH REDNESS, NO REDNESS Source of Information: Patient, EMS, [facility] Records Exam Limitations: No Limitations History of Present Illness Date Seen by Provider: Sep 06, 2021 Time Seen by Provider: 15:13 Initial Comments This 87-year-old woman presents to the emergency room via EMS from [facility] where she has been complaining of severe right lower back pain radiating down toward her hip. She is chronically debilitated and has an indwelling Askew catheter. Urine in the catheter bag appears cloudy. Patient is tender to palpation in the lower back. jail had reported redness around the right hip which is not noted on our exam. There was no no injury. Patient states this pain is new to her in the past couple of days. Pain also radiates toward the right flank. Allergies and Home Medications Allergies Coded Allergies: Sulfa (Sulfonamide Antibiotics) (Verified Allergy, Unknown, 04/16/19) diphenhydramine HCl (Verified Allergy, Unknown, 04/16/19) hydrochlorothiazide (Unverified Allergy, Unknown, 04/16/19) varenicline tartrate (Verified Allergy, Unknown, 04/16/19) Patient Home Medication List Home Medication List Reviewed: Yes Acetaminophen (Acetaminophen) 325 Mg Tablet, 650 MG PO Q4H PRN for PAIN-MILD, (Reported) Entered as Reported by: LLOYD CUEVAS on 04/01/18 0904 Albuterol Sulfate (Proair Hfa) 8.5 Gm Hfa.aer.ad, 2 PUFF IH Q6H PRN for SHORTNESS OF BREATH, (Reported) Entered as Reported by: JOSEE VELAZQUEZ on 05/14/16 1655 Apixaban (Eliquis) 2.5 Mg Tablet, 2.5 MG PO BID, (Reported) Entered as Reported by: PATSY RODRIGUEZ on 06/19/20 0947 Aspirin (Aspirin) 81 Mg Tab.chew, 81 MG PO Q48H, (Reported) Entered as Reported by: PATSY RODRIGUEZ on 06/19/20 0947 Atorvastatin Calcium (Lipitor) 40 Mg Tablet, 40 MG PO DAILY, (Reported) Entered as Reported by: HENRRY CONNER on 02/06/17 1353 Benzocaine (Oral Analgesic) 9 Gm Gel..gram., 1 APPLIC MM QID PRN for PAIN-MILD (1-4), (Reported) Entered as Reported by: PATSY RODRIGUEZ on 06/19/20 1001 Budesonide/Formoterol Fumarate (Symbicort 160-4.5 Mcg Inhaler) 10.2 Gm Hfa.aer.ad, 2 PUFF IH BID, (Reported) Entered as Reported by: JOSEE VELAZQUEZ on 05/14/16 165 Bupropion HCl (Bupropion Xl) 300 Mg Tab.er.24h, 300 MG PO HS, (Reported) Entered as Reported by: JOSEE VELAZQUEZ on 05/14/161654 Cefdinir (Cefdinir) 300 Mg Capsule, 300 MG PO BID Prescribed by: JUAREZ CLAY on 09/06/211914 Cyclobenzaprine HCl (Cyclobenzaprine HCl) 5 Mg Tablet, 5 MG PO TID PRN for SPASMS Prescribed by: JUAREZ CLAY on 09/06/211911 Diltiazem HCl (Cardizem Cd) 300 Mg Cap.er.24h, 300 MG PO DAILY, (Reported) Entered as Reported by: PATSY RODRIGUEZ on 06/19/20 0942 Docusate Sodium (Colace) 100 Mg Capsule, 100 MG PO DAILY Prescribed by: JUAREZ CLAY on 09/06/211911 Ferrous Sulfate (Ferrous Sulfate) 325 Mg Tablet.dr, 325 MG PO DAILY, (Reported) Entered as Reported by: BOBBI TURNER on 06/20/20 1303 Furosemide (Furosemide) 20 Mg Tablet, 20 MG PO Q48H, (Reported) Entered as Reported by: JOSEE VELAZQUEZ on 05/14/161654 Gabapentin (Gabapentin) 400 Mg Capsule, 400 MG PO TID, (Reported) Entered as Reported by: JOSEE VELAZQUEZ on 05/14/16 165 Guaifenesin/Dextromethorphan (Robitussin Cough-Chest Dm Liq) 237 Ml Liquid, 5 ML PO Q4H PRN for COUGH, (Reported) Entered as Reported by: DAVID FIGUEROA on 04/17/19 0850 Hydrocodone/Acetaminophen (Hydrocodone-Acetamin 7.5-325) 1 Each Tablet, 1 EACH PO Q4H Prescribed by: LES ETIENNE on 06/23/20 1101 Hydrocodone/Acetaminophen (Hydrocodone-Acetamin 5-325 mg) 1 Each Tablet, 1 TAB PO Q4H PRN for PAIN-MODERATE (5-7) Prescribed by: JUAREZ CLAY on 09/06/21 1913 Lorazepam (Ativan) 0.5 Mg Tablet, 0.25 MG PO BID, (Reported) Entered as Reported by: BOBBI TURNER on 06/20/20 1303 Mag Hydrox/Aluminum Hyd/Simeth (Maalox Advanced Suspension) 355 Ml Oral.susp, 30 ML PO Q4H PRN for INDIGESTION, (Reported) Entered as Reported by: DAVID FIGUEROA on 04/17/19 0850 Metoprolol Succinate (Metoprolol Succinate) 25 Mg Tab.er.24h, 25 MG PO DAILY, (Reported) Entered as Reported by: PATSY RODRIGUEZ on 06/19/20 0947 Mirabegron (Myrbetriq) 25 Mg Tab.er.24h, 25 MG PO DAILY, (Reported) Entered as Reported by: DAVID FIGUEROA on 04/17/19 0850 Oxybutynin Chloride (Oxybutynin Chloride ER) 10 Mg Tab.er.24, 10 MG PO DAILY, (Reported) Entered as Reported by: DAVID FIGUEROA on 04/17/19 0850 Pantoprazole Sodium (Pantoprazole Sodium) 40 Mg Tablet.dr, 40 MG PO DAILY, (Reported) Entered as Reported by: DAVID FIGUEROA on 04/17/19 0850 Potassium Chloride (Potassium Chloride) 20 Meq Tab.er.prt, 40 MEQ PO Q48H, (Reported) Entered as Reported by: JOSEE VELAZQUEZ on 05/14/16 1655 Propylene Glycol (Systane Complete) 1.5 Ml Drops, 1 DROP OU TID, (Reported) Entered as Reported by: PATSY RODRIGUEZ on 06/19/20 0954 Sertraline HCl (Zoloft) 100 Mg Tablet, 100 MG PO DAILY, (Reported) Entered as Reported by: PATSY RODRIGUEZ on 06/19/20 0938 Tamsulosin HCl (Flomax) 0.4 Mg Cap, 0.4 MG PO DAILY 30MIN P MEAL, (Reported) Entered as Reported by: DAVID FIGUEROA on 11/27/17 1051 Tramadol HCl (Tramadol HCl) 50 Mg Tablet, 50 MG PO TID, (Reported) Entered as Reported by: LLOYD CUEVAS on 04/01/18 0925 Trazodone HCl (Trazodone HCl) 50 Mg Tablet, 25 MG PO HS, (Reported) Entered as Reported by: LLOYD CUEVAS on 04/01/18 0923 [Flavoxate 100MG] , 100 MG PO TID PRN for BLADDER SPASMS, (Reported) Entered as Reported by: DAVID FIGUEROA on 04/17/19 0850 Review of Systems Review of Systems Constitutional: no symptoms reported EENTM: no symptoms reported Respiratory: no symptoms reported Cardiovascular: no symptoms reported Gastrointestinal: see HPI Genitourinary: see HPI : No Musculoskeletal: see HPI Skin: no symptoms reported Psychiatric/Neurological: See HPI Hematologic/Lymphatic: No Symptoms Reported Immunological/Allergic: no symptoms reported Past Tupbzjs-Ggywol-Xgkpgn Hx Patient Social History Tobacco Use?: No Alcohol Use?: No Immunizations Up To Date Tetanus Booster (TDap): Unknown PED Vaccines UTD: No Seasonal Allergies Seasonal Allergies: No Past Medical History Surgeries: Yes Adenoidectomy, Appendectomy, Bladder Surgery, Cardiac, CABG, Gallbladder, Hysterectomy, Joint Replacement, Orthopedic, Tonsillectomy Respiratory: Yes Asthma, COPD (Using supplemental O2 by nasal cannula) Currently Using CPAP: No Currently Using BIPAP: No Cardiac: Yes (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, 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, Atrial Fibrillation, Coronary Artery Disease, High Cholesterol, Hypertension Neurological: Yes (HAD BRAIN SURGERY FOR ANEURYSM 2008, dysphagia) Reproductive Disorders: Yes Female Reproductive Disorders: 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 Sexually Transmitted Disease: No Genitourinary: Yes (suprapubic catheter) UTI-Chronic Gastrointestinal: Yes Gastroesophageal Reflux, Chronic Constipation Musculoskeletal: Yes ( BILAT ROTATOR CUFF SURGERY) Degenerate Disk Disease, Arthritis, Chronic Back Pain Endocrine: Yes Diabetes, Non-Insulin dep Cataract Loss of Vision: Denies Hearing Impairment: Denies Cancer: No Psychosocial: Yes (panic disorder) Anxiety, Depression Integumentary: No Blood Disorders: No Adverse Reaction/Blood Tranf: No Family Medical History Cancer 09 SISTER Cancer of colon Cataract 03 MOTHER, Onset:Unknown Family history: Allergy 03 FATHER, Onset:Unknown 03 MOTHER, Onset:Unknown Family history: Arthritis 03 FATHER, Onset:Unknown 03 MOTHER, Onset:Unknown 09 SISTER, Onset:Unknown Family history: Cardiovascular disease 03 FATHER, Onset:Unknown 03 MOTHER, Onset:Unknown 09 BROTHER, Onset:Unknown 09 SISTER, Onset:Unknown Family history: Diabetes mellitus 03 MOTHER, Onset:Unknown Family history: Gastrointestinal disease 03 FATHER, Onset:Unknown Family history: Hypertension 03 MOTHER, Onset:Unknown Family history: Osteoporosis 03 MOTHER, Onset:Unknown Hearing loss 03 FATHER, Onset:Unknown Heart disease 03 FATHER, Onset:Unknown 03 MOTHER, Onset:Unknown 09 BROTHER, Onset:Unknown Hypercholesterolemia 03 MOTHER, Onset:Unknown Malignant neoplasm of lung 09 SISTER, Onset:Unknown Myocardial infarction 09 BROTHER, Onset:Unknown Parkinson's disease Stroke 03 FATHER, Onset:Unknown Thyroid disease No Family History of: Abdominal aortic aneurysm Robert's disease Alcoholism Aphasia Chest pain Congenital heart disease Congestive heart failure Cystic fibrosis Dementia Dysphagia Family history: Alzheimer's disease Family history: Asthma Family history: Breast disease Family history: Coronary thrombosis Family history: Glaucoma Family history: Thyroid disorder Headache Hereditary disease History of - anemia History of - disorder History of - respiratory disease History of drug abuse Human immunodeficiency virus (HIV) seropositivity Infertile Kidney disease Prostate cancer Psychotic disorder Seizure disorder Tuberculosis Visual impairment Heart Disease, Diabetes Physical Exam Vital Signs Vital Signs - First Documented 09/06/21 09/06/21 15:07 19:50 Temp 37.0 Pulse 95 Resp 18 B/P (MAP) 131/80 Pulse Ox 94 O2 Delivery Nasal Cannula O2 Flow Rate 4.00 Capillary Refill : Less Than 3 Seconds Height, Weight, BMI Height: 5'2.00" Weight: 165lbs. 7.0oz. 74.149632me; 31.00 BMI Method:Stated General Appearance: WD/WN, Moderate Distress HEENT: PERRL/EOMI, Normal ENT Inspection Neck: Normal Inspection Respiratory: No Accessory Muscle Use, No Respiratory Distress, Wheezing Cardiovascular: Regular Rate, Rhythm, No Edema Gastrointestinal: Normal Bowel Sounds, Non Tender, Soft; No Distended Back: Vertebral Tenderness (Lumbar spine), Other (Tender spasms in the right paraspinous muscles) Extremity: Normal Inspection, No Pedal Edema Neurologic/Psychiatric: Alert, Oriented x3, Normal Mood/Affect, fitter / welder II-XII Norm as Tested Skin: Normal Color, Warm/Dry; No Rash Progress/Results/Core Measures Suspected Sepsis SIRS Temperature: Pulse: 95 Respiratory Rate: 18 Laboratory Tests 09/06/21 15:22: White Blood Count 8.9 Blood Pressure / Mean: Laboratory Tests 09/06/21 15:22: Creatinine 0.79, Platelet Count 335, Total Bilirubin 0.3 Results/Orders Lab Results Laboratory Tests Test 09/06/21 15:22 09/06/21 16:10 Range/Units White Blood Count 8.9 4.3-11.0 10^3/uL Red Blood Count 3.80 3.80-5.11 10^6/uL Hemoglobin 9.5 L 11.5-16.0 g/dL Hematocrit 31 L 35-52 % Mean Corpuscular Volume 82 80-99 fL Mean Corpuscular Hemoglobin 25 25-34 pg Mean Corpuscular Hemoglobin Concent 30 L 32-36 g/dL Red Cell Distribution Width 17.5 H 10.0-14.5 % Platelet Count 335 130-400 10^3/uL Mean Platelet Volume 9.7 9.0-12.2 fL Immature Granulocyte % (Auto) 0 % Neutrophils (%) (Auto) 75 42-75 % Lymphocytes (%) (Auto) 12 12-44 % Monocytes (%) (Auto) 9 0-12 % Eosinophils (%) (Auto) 4 0-10 % Basophils (%) (Auto) 0 0-10 % Neutrophils # (Auto) 6.7 1.8-7.8 10^3/uL Lymphocytes # (Auto) 1.1 1.0-4.0 10^3/uL Monocytes # (Auto) 0.8 0.0-1.0 10^3/uL Eosinophils # (Auto) 0.3 0.0-0.3 10^3/uL Basophils # (Auto) 0.0 0.0-0.1 10^3/uL Immature Granulocyte # (Auto) 0.0 0.0-0.1 10^3/uL Sodium Level 135 135-145 MMOL/L Potassium Level 5.2 H 3.6-5.0 MMOL/L Chloride Level 103 98-107 MMOL/L Carbon Dioxide Level 20 L 21-32 MMOL/L Anion Gap 12 5-14 MMOL/L Blood Urea Nitrogen 20 H 7-18 MG/DL Creatinine 0.79 0.60-1.30 MG/DL Estimat Glomerular Filtration Rate 70 BUN/Creatinine Ratio 25 Glucose Level 109 H 70-105 MG/DL Calcium Level 9.4 8.5-10.1 MG/DL Corrected Calcium 9.9 8.5-10.1 MG/DL Total Bilirubin 0.3 0.1-1.0 MG/DL Aspartate Amino Transf (AST/SGOT) 23 5-34 U/L Alanine Aminotransferase (ALT/SGPT) 17 0-55 U/L Alkaline Phosphatase 73 40-136 U/L C-Reactive Protein High Sensitivity 1.79 H 0.00-0.50 MG/DL Total Protein 8.3 H 6.4-8.2 GM/DL Albumin 3.4 3.2-4.5 GM/DL Urine Color YELLOW Urine Clarity CLOUDY Urine pH 5.5 5-9 Urine Specific [place] 1.020 1.016-1.022 Urine Protein NEGATIVE NEGATIVE Urine Glucose (UA) NEGATIVE NEGATIVE Urine Ketones TRACE H NEGATIVE Urine Nitrite POSITIVE H NEGATIVE Urine Bilirubin NEGATIVE NEGATIVE Urine Urobilinogen 0.2 < = 1.0 MG/DL Urine Leukocyte Esterase 2+ H NEGATIVE Urine RBC (Auto) 1+ H NEGATIVE Urine RBC 0-2 /HPF Urine WBC 10-25 H /HPF Urine Squamous Epithelial Cells 0-2 /HPF Urine Crystals NONE /LPF Urine Bacteria MODERATE H /HPF Urine Casts NONE /LPF Urine Mucus NEGATIVE /LPF Urine Culture Indicated YES My Orders Orders - JUAREZ DAWSON MD Cbc With Automated Diff (09/06/21 15:17) Comprehensive Metabolic Panel (09/06/21 15:17) Hs C Reactive Protein (09/06/21 15:17) Ua Culture If Indicated (09/06/21 15:17) Ed Iv/Invasive Line Start (09/06/21 15:17) Fentanyl Inj (Sublimaze Injection) (09/06/21 15:30) Urine Culture (09/06/21 16:10) Ns Iv 1000 Ml (Sodium Chloride 0.9%) (09/06/21 17:00) Ct Abdomen/Pelvis W (09/06/21 16:58) Iohexol Injection (Omnipaque 350 Mg/Ml 1 (09/06/21 17:15) Received Contrast (Hold Metformin- Contr (09/06/21 17:15) Ns (Ivpb) (Sodium Chloride 0.9% Ivpb Bag (09/06/21 17:15) Fentanyl Inj (Sublimaze Injection) (09/06/21 18:00) Ketorolac Injection (Toradol Injection) (09/06/21 18:15) Orphenadrine Inj (Ed Only) (Norflex Inje (09/06/21 18:15) Ceftriaxone (Rocephin) (09/06/21 18:45) Water (Sterile) For Injection (Sterile W (09/06/21 18:51) Rx-Oxycodone/Apap 5-325 Mg (Rx-Percocet (09/06/21 19:15) Rx-Cyclobenzaprine Tablet (Rx-Flexeril T (09/06/21 19:03) Askew Cath (09/06/21 19:44) Medications Given in ED Vital Signs/I&O 09/06/21 09/06/21 15:07 19:50 Temp 37.0 36.5 Pulse 95 87 Resp 18 16 B/P (MAP) 131/80 Pulse Ox 94 95 O2 Delivery Nasal Cannula O2 Flow Rate 4.00 09/07/21 00:00 Intake Total 1010 ml Balance 1010 ml Capillary Refill : Less Than 3 Seconds Progress Note : Progress Note Patient's pain was treated with fentanyl x2. CT of the abdomen pelvis was obtained to evaluate for pyelonephritis, ureteral stone, spinal disease, etc. No pyelonephritis or ureteral stones were identified. 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 Urinary tract infection was also identified by urinalysis. She was treated with Rocephin. She was given fentanyl x2 in the ER along with a low-dose of Toradol. She should not continue on NSAID medications due to her Eliquis use. Norflex was given for muscle spasm. She did have improvement in pain. She was discharged with take-home bottles of Percocet and cyclobenzaprine and prescriptions were provided. Diagnostic Imaging Diagonstic Imaging: CT Plain Films/CT/US/NM/MRI: abdomen, pelvis Comments CT abdomen and pelvis viewed by me and report reviewed. See report below: NAME: JULES REYES [facility] REC#: [id number] PT STATUS: REG ER : 1937 PHYSICIAN: JUAREZ DAWSON MD ADMIT DATE: 09/06/21/ER Signed Date of Exam:09/06/21 CT ABDOMEN/PELVIS W EXAMINATION: CT abdomen and pelvis with intravenous contrast. TECHNIQUE: Multiple contiguous axial images were obtained through the abdomen and pelvis after the uneventful administration of intravenous contrast. All CT scans use one or more of the following dose optimizing techniques: automated exposure control, MA and/or KvP adjustment based on patient size and exam type or iterative reconstruction. HISTORY: Right flank pain. COMPARISON: 06/18/2020. FINDINGS: Lung bases: Emphysema or fibrosis in the lung bases. Solid organs: The liver is normal without focal lesion. The gallbladder is normal. There is no biliary ductal dilation. Pancreas is normal. Spleen is normal. Adrenal glands are normal. Bilateral renal cortical cysts are present requiring no follow-up. There is no hydronephrosis. Bowel: The stomach and small bowel are normal without obstruction. The colon is unremarkable. No finding of acute appendicitis. Peritoneum: There is no intraperitoneal free fluid or free air. No suspicious lymphadenopathy. Vasculature: Vascular calcifications of the aorta. There is aneurysmal dilatation of the infrarenal abdominal aorta measuring up to 4.4 cm. 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 Musculoskeletal: Multilevel degenerative changes of the spine without suspicious osseous lesion or compression fracture. Surgical changes from right hip arthroplasty. Right abdominal wall fat-containing hernia. Pelvis: The uterus is surgically absent. No adnexal mass. The urinary bladder is decompressed through a suprapubic catheter. IMPRESSION: 1. No acute abnormality in the abdomen or pelvis. 2. Stable aneurysmal dilatation of the abdominal aorta. Dictated by: Dictated on workstation # [id number] Dict: 09/06/211745 Trans: 09/06/211854 [facility] [id number] Interpreted by: DEREK LI DO Electronically signed by: DEREK LI DO 09/06/211854 Departure Impression Primary Impression: Urinary tract infection Qualified Codes: N39.0 - Urinary tract infection, site not specified Additional Impressions: Lower back pain Qualified Codes: M54.5 - Low back pain Degenerative joint disease of low back Spasm of muscle of lower back Disposition: 01 HOME, SELF-CARE Condition: Improved Departure-Patient Inst. Decision time for Depature: 19:07 Referrals: SHANIQUE VEGA MD (PCP/Family) Primary Care Physician Patient Instructions: Urinary Tract Infection, Adult ED, Low Back Pain ED Add. Discharge Instructions: Use hydrocodone as prescribed for pain. Follow-up with your primary care provider soon as possible to discuss long-term treatment of your pain and further evaluation. You may need additional imaging or services. You may use cyclobenzaprine as prescribed for muscle spasms. Gentle heat may also be helpful. Complete your antibiotic as prescribed. Follow-up on urine culture results in 48 to 72 hours and discuss results with your primary care provider. Call with questions or concerns. Return to the emergency room if you have worsening symptoms. All discharge instructions reviewed with patient and/or family. Voiced understanding. Scripts Cefdinir (Cefdinir) 300 Mg Capsule 300 MG PO BID, #14 CAP 0 Refills Prov: JUAREZ DAWSON MD 09/06/21 Docusate Sodium (Colace) 100 Mg Capsule 100 MG PO DAILY, #30 CAP Use daily while taking opioids such as hydrocodone to prevent constipation. Prov: JUAREZ DAWSON MD 09/06/21 Cyclobenzaprine HCl (Cyclobenzaprine HCl) 5 Mg Tablet 5 MG PO TID PRN for SPASMS, #15 TAB Prov: JUAREZ DAWSON MD 09/06/21 Hydrocodone/Acetaminophen (Hydrocodone-Acetamin 5-325 mg) 1 Each Tablet 1 TAB PO Q4H PRN for PAIN-MODERATE (5-7), #20 TAB Prov: JUAREZ DAWSON MD 09/06/21 Copy Copies To 1: SHANIQUE VEGA MD, JOSHUA T MD Sep 06, 2021 19:12
[2021-09-06] MEDS ORDERED: CEFD300C3 PO (19:15)
[2021-09-06] MEDS ORDERED: RX-OXYCODONE/APAP 5-325 MG #4 TAB PK PO PRN (19:15)
[2021-09-06 19:50] VITALS: BP 131/80
== END 2021-09-06 20:07 | disposition home or self-care (01) ==
LOC: EDUNIT# 15:07 → ER 15:13
DX: N39.0 Urinary tract infection, site not specified (principal); M51.36 Other intervertebral disc degeneration, lumbar region; M62.830 Muscle spasm of back; J44.9 Chronic obstructive pulmonary disease, unspecified; I10 Essential (primary) hypertension; F41.9 Anxiety disorder, unspecified; F32.9 Major depressive disorder, single episode, unspecified; E11.9 Type 2 diabetes mellitus without complications; I25.2 Old myocardial infarction; I48.91 Unspecified atrial fibrillation; E78.00 Pure hypercholesterolemia, unspecified; K21.9 Gastro-esophageal reflux disease without esophagitis; G89.29 Other chronic pain; M54.9 Dorsalgia, unspecified; Z79.82 Long term (current) use of aspirin; Z79.01 Long term (current) use of anticoagulants; Z79.899 Other long term (current) drug therapy; Z79.891 Long term (current) use of opiate analgesic
CPT/HCPCS: 36415; 51702; 74177; 80053; 81000; 85025; 86141; 87077; 87088

== ENCOUNTER → 2021-09-11 | Outpatient (CLI) | payer MEDICARE, MEDICAID ==
[~2021-09-11] MED LIST changes: +CEFD300C3 PO; +CYCL5TAB PO; +DOCU-143 PO; +RT-ALBUTEROL SULF 2.5 MG/3 ML PRE-MIX VIAL INH ONE
== END ==
LOC: RT 08:42
PROVIDERS: ATTEND Nurse Practitioner Community Health
DX: J43.9 Emphysema, unspecified (principal)
CPT/HCPCS: 94060; 94729

== ENCOUNTER 2021-09-23 10:43 | Inpatient (IN) | payer MEDICARE, MEDICAID ==
[~2021-09-23] VITALS: Ht 157 cm; Wt 81.3 kg
[~2021-09-23 10:43] MED LIST changes: +POTA-179 PO; -RT-ALBUTEROL SULF 2.5 MG/3 ML PRE-MIX VIAL INH ONE
[2021-09-23] MEDS ORDERED: morphine INJ 10 MG/ML 1ML (SYR OR VIAL) IVP STA ×2 (10:51→13:02)
--- NOTE | 2021-09-23 10:57 | ED General ---
General Stated Complaint: SOB Source of Information: Patient Exam Limitations: No Limitations (NIK MCKEON APRN) History of Present Illness Date Seen by Provider: Sep 23, 2021 Time Seen by Provider: 10:54 Initial Comments To ER with shortness of breath. She arrives by EMS from [facility]. She was found to be at 82% SPO2 on her baseline 3 L. She has been short of breath for a couple of months about 1.5 months. She has had worsening of the shortness of breath the past 2 days. She has had a cough no fever she is vaccinated against Covid. She also reports severe left-sided neck pain for the past few days. Timing/Duration: 1-2 Days Severity: Moderate Associated Systoms: Cough, Shortness of Air (NIK MCKEON APRN) Allergies and Home Medications Allergies Coded Allergies: Sulfa (Sulfonamide Antibiotics) (Verified Allergy, Unknown, 04/16/19) diphenhydramine HCl (Verified Allergy, Unknown, 04/16/19) hydrochlorothiazide (Unverified Allergy, Unknown, 04/16/19) varenicline tartrate (Verified Allergy, Unknown, 04/16/19) Patient Home Medication List Home Medication List Reviewed: Yes (NIK MCKEON APRN) Acetaminophen (Acetaminophen) 325 Mg Tablet, 650 MG PO Q4H PRN for PAIN-MILD, (Reported) Entered as Reported by: LLOYD CUEVAS on 04/01/18 0904 Albuterol Sulfate (Proair Hfa) 8.5 Gm Hfa.aer.ad, 2 PUFF IH Q6H PRN for SHORTNESS OF BREATH, (Reported) Entered as Reported by: JOSEE VELAZQUEZ on 05/14/16 1655 Apixaban (Eliquis) 2.5 Mg Tablet, 2.5 MG PO BID, (Reported) Entered as Reported by: PATSY RODRIGUEZ on 06/19/20 0947 Aspirin (Aspirin) 81 Mg Tab.chew, 81 MG PO Q48H, (Reported) Entered as Reported by: PATSY RODRIGUEZ on 06/19/20 0947 Atorvastatin Calcium (Lipitor) 40 Mg Tablet, 40 MG PO DAILY, (Reported) Entered as Reported by: HENRRY CONNER on 02/06/17 1353 Benzocaine (Oral Analgesic) 9 Gm Gel..gram., 1 APPLIC MM QID PRN for PAIN-MILD (1-4), (Reported) Entered as Reported by: PATSY RODRIGUEZ on 06/19/20 1001 Budesonide/Formoterol Fumarate (Symbicort 160-4.5 Mcg Inhaler) 10.2 Gm Hfa.aer.ad, 2 PUFF IH BID, (Reported) Entered as Reported by: JOSEE VELAZQUEZ on 05/14/16 165 Bupropion HCl (Bupropion Xl) 300 Mg Tab.er.24h, 300 MG PO HS, (Reported) Entered as Reported by: JOSEE VELAZQUEZ on 05/14/16 165 Cefdinir (Cefdinir) 300 Mg Capsule, 300 MG PO BID Prescribed by: JUAREZ CLAY on 09/06/211914 Cyclobenzaprine HCl (Cyclobenzaprine HCl) 5 Mg Tablet, 5 MG PO TID PRN for SPASMS Prescribed by: JUAREZ CLAY on 09/06/211911 Diltiazem HCl (Cardizem Cd) 300 Mg Cap.er.24h, 300 MG PO DAILY, (Reported) Entered as Reported by: PATSY RODRIGUEZ on 06/19/20 0942 Docusate Sodium (Colace) 100 Mg Capsule, 100 MG PO DAILY Prescribed by: JUAREZ CLAY on 09/06/211911 Ferrous Sulfate (Ferrous Sulfate) 325 Mg Tablet.dr, 325 MG PO DAILY, (Reported) Entered as Reported by: BOBBI TURNER on 06/20/20 1303 Furosemide (Furosemide) 20 Mg Tablet, 20 MG PO Q48H, (Reported) Entered as Reported by: JOSEE VELAZQUEZ on 05/14/16 165 Gabapentin (Gabapentin) 400 Mg Capsule, 400 MG PO TID, (Reported) Entered as Reported by: JOSEE VELAZQUEZ on 05/14/16 165 Guaifenesin/Dextromethorphan (Robitussin Cough-Chest Dm Liq) 237 Ml Liquid, 5 ML PO Q4H PRN for COUGH, (Reported) Entered as Reported by: DAVID FIGUEROA on 04/17/19 0850 Hydrocodone/Acetaminophen (Hydrocodone-Acetamin 7.5-325) 1 Each Tablet, 1 EACH PO Q4H Prescribed by: LES ETIENNE on 06/23/20 1101 Hydrocodone/Acetaminophen (Hydrocodone-Acetamin 5-325 mg) 1 Each Tablet, 1 TAB PO Q4H PRN for PAIN-MODERATE (5-7) Prescribed by: JUAREZ CLAY on 09/06/21 191 Lorazepam (Ativan) 0.5 Mg Tablet, 0.25 MG PO BID, (Reported) Entered as Reported by: BOBBI TURNER on 06/20/20 1303 Mag Hydrox/Aluminum Hyd/Simeth (Maalox Advanced Suspension) 355 Ml Oral.susp, 30 ML PO Q4H PRN for INDIGESTION, (Reported) Entered as Reported by: DAVID FIGUEROA on 04/17/19 0850 Metoprolol Succinate (Metoprolol Succinate) 25 Mg Tab.er.24h, 25 MG PO DAILY, (Reported) Entered as Reported by: PATSY RODRIGUEZ on 06/19/20 0947 Mirabegron (Myrbetriq) 25 Mg Tab.er.24h, 25 MG PO DAILY, (Reported) Entered as Reported by: DAVID FIGUEROA on 04/17/19 0850 Oxybutynin Chloride (Oxybutynin Chloride ER) 10 Mg Tab.er.24, 10 MG PO DAILY, (Reported) Entered as Reported by: DAVID FIGUEROA on 04/17/19 0850 Pantoprazole Sodium (Pantoprazole Sodium) 40 Mg Tablet.dr, 40 MG PO DAILY, (Reported) Entered as Reported by: DAVID FIGUEROA on 04/17/19 0850 Potassium Chloride (Potassium Chloride) 20 Meq Tab.er.prt, 40 MEQ PO Q48H, (Reported) Entered as Reported by: JOSEE VELAZQUEZ on 05/14/16 1655 Propylene Glycol (Systane Complete) 1.5 Ml Drops, 1 DROP OU TID, (Reported) Entered as Reported by: PATSY RODRIGUEZ on 06/19/20 0954 Sertraline HCl (Zoloft) 100 Mg Tablet, 100 MG PO DAILY, (Reported) Entered as Reported by: PATSY RODRIGUEZ on 06/19/20 0938 Tamsulosin HCl (Flomax) 0.4 Mg Cap, 0.4 MG PO DAILY 30MIN P MEAL, (Reported) Entered as Reported by: DAVID FIGUEROA on 11/27/17 1051 Tramadol HCl (Tramadol HCl) 50 Mg Tablet, 50 MG PO TID, (Reported) Entered as Reported by: LLOYD CUEVAS on 04/01/18 0925 Trazodone HCl (Trazodone HCl) 50 Mg Tablet, 25 MG PO HS, (Reported) Entered as Reported by: LLOYD CUEVAS on 04/01/18 0923 [Flavoxate 100MG] , 100 MG PO TID PRN for BLADDER SPASMS, (Reported) Entered as Reported by: DAVID FIGUEROA on 04/17/19 0850 Review of Systems Review of Systems Constitutional: see HPI EENTM: see HPI Respiratory: see HPI, cough, dyspnea on exertion Cardiovascular: no symptoms reported Genitourinary: no symptoms reported Musculoskeletal: no symptoms reported Skin: no symptoms reported Hematologic/Lymphatic: No Symptoms Reported (NIK MCKEON APRN) Past Ulxulft-Nzlwqk-Bjuuus Hx Immunizations Up To Date Tetanus Booster (TDap): Unknown PED Vaccines UTD: No (NIK MCKEON APRN) Seasonal Allergies Seasonal Allergies: No (NIK MCKEON APRN) Past Medical History Surgeries: Yes Adenoidectomy, Appendectomy, Bladder Surgery, Cardiac, CABG, Gallbladder, Hysterectomy, Joint Replacement, Orthopedic, Tonsillectomy Respiratory: Yes Asthma, COPD Currently Using CPAP: No Currently Using BIPAP: No Cardiac: Yes (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, 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, Atrial Fibrillation, Coronary Artery Disease, High Cholesterol, Hypertension Neurological: Yes (HAD BRAIN SURGERY FOR ANEURYSM 2008, dysphagia) Reproductive Disorders: Yes Female Reproductive Disorders: Endometriosis 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 Sexually Transmitted Disease: No Genitourinary: Yes (suprapubic catheter) UTI-Chronic Gastrointestinal: Yes Gastroesophageal Reflux, Chronic Constipation Musculoskeletal: Yes ( BILAT ROTATOR CUFF SURGERY) Degenerate Disk Disease, Arthritis, Chronic Back Pain Endocrine: Yes Diabetes, Non-Insulin dep Cataract Loss of Vision: Denies Hearing Impairment: Denies Cancer: No Psychosocial: Yes (panic disorder) Anxiety, Depression Integumentary: No Blood Disorders: No Adverse Reaction/Blood Tranf: No (NIK MCKEON APRN) Family Medical History Cancer 09 SISTER Cancer of colon Cataract 03 MOTHER, Onset:Unknown Family history: Allergy 03 FATHER, Onset:Unknown 03 MOTHER, Onset:Unknown Family history: Arthritis 03 FATHER, Onset:Unknown 03 MOTHER, Onset:Unknown 09 SISTER, Onset:Unknown Family history: Cardiovascular disease 03 FATHER, Onset:Unknown 03 MOTHER, Onset:Unknown 09 BROTHER, Onset:Unknown 09 SISTER, Onset:Unknown Family history: Diabetes mellitus 03 MOTHER, Onset:Unknown Family history: Gastrointestinal disease 03 FATHER, Onset:Unknown Family history: Hypertension 03 MOTHER, Onset:Unknown Family history: Osteoporosis 03 MOTHER, Onset:Unknown Hearing loss 03 FATHER, Onset:Unknown Heart disease 03 FATHER, Onset:Unknown 03 MOTHER, Onset:Unknown 09 BROTHER, Onset:Unknown Hypercholesterolemia 03 MOTHER, Onset:Unknown Malignant neoplasm of lung 09 SISTER, Onset:Unknown Myocardial infarction 09 BROTHER, Onset:Unknown Parkinson's disease Stroke 03 FATHER, Onset:Unknown Thyroid disease No Family History of: Abdominal aortic aneurysm Clay's disease Alcoholism Aphasia Chest pain Congenital heart disease Congestive heart failure Cystic fibrosis Dementia Dysphagia Family history: Alzheimer's disease Family history: Asthma Family history: Breast disease Family history: Coronary thrombosis Family history: Glaucoma Family history: Thyroid disorder Headache Hereditary disease History of - anemia History of - disorder History of - respiratory disease History of drug abuse Human immunodeficiency virus (HIV) seropositivity Infertile Kidney disease Prostate cancer Psychotic disorder Seizure disorder Tuberculosis Visual impairment Heart Disease, Diabetes (NIK MCKEON APRN) Physical Exam Vital Signs Vital Signs - First Documented (JUAREZ DAWSON MD) Vital Signs Capillary Refill : (NIK MCKEON APRN) Height, Weight, BMI Height: 5'2.00" Weight: 165lbs. 7.0oz. 74.755915ky; 31.00 BMI Method:Stated General Appearance: Chronically ill, Moderate Distress (Started on nonrebreather by EMS. Very diminished lung sounds on the right but oxygen saturation is 98%. Heart rate 106. She is anxious appearing with increased work of breathing) HEENT: PERRL/EOMI, TMs Normal Neck: Full Range of Motion, Normal Inspection Respiratory: Decreased Breath Sounds, Respiratory Distress Cardiovascular: Normal Peripheral Pulses, Tachycardia Gastrointestinal: Non Tender, Soft Extremity: Normal Capillary Refill, Normal Inspection Neurologic/Psychiatric: Alert, Oriented x3 Skin: Normal Color, Warm/Dry (NIK MCKEON APRN) Focused Exam Lactate Level 09/23/21 10:48: Lactic Acid Level 0.92 (JUAREZ DAWSON MD) Lactic Acid Level Laboratory Tests Test 09/23/21 10:48 Lactic Acid Level 0.92 MMOL/L (0.50-2.00) (JUAREZ DAWSON MD) Progress/Results/Core Measures Suspected Sepsis SIRS Temperature: Pulse: Respiratory Rate: Laboratory Tests 09/23/21 10:48: White Blood Count 10.3 Blood Pressure / Mean: 09/23/21 10:48: Lactic Acid Level 0.92 Laboratory Tests 09/23/21 10:48: Creatinine 0.68, INR Comment 1.3, Platelet Count 352, Total Bilirubin 0.5 (NIK MCKEON APRN) Results/Orders Lab Results Laboratory Tests Test 09/23/21 10:48 09/23/21 11:16 09/23/21 11:17 09/23/21 11:36 Range/Units White Blood Count 10.3 4.3-11.0 10^3/uL Red Blood Count 3.91 3.80-5.11 10^6/uL Hemoglobin 9.6 L 11.5-16.0 g/dL Hematocrit 32 L 35-52 % Mean Corpuscular Volume 81 80-99 fL Mean Corpuscular Hemoglobin 25 25-34 pg Mean Corpuscular Hemoglobin Concent 31 L 32-36 g/dL Red Cell Distribution Width 17.9 H 10.0-14.5 % Platelet Count 352 130-400 10^3/uL Mean Platelet Volume 10.0 9.0-12.2 fL Immature Granulocyte % (Auto) 0 % Neutrophils (%) (Auto) 82 H 42-75 % Lymphocytes (%) (Auto) 8 L 12-44 % Monocytes (%) (Auto) 7 0-12 % Eosinophils (%) (Auto) 3 0-10 % Basophils (%) (Auto) 1 0-10 % Neutrophils # (Auto) 8.4 H 1.8-7.8 10^3/uL Lymphocytes # (Auto) 0.8 L 1.0-4.0 10^3/uL Monocytes # (Auto) 0.7 0.0-1.0 10^3/uL Eosinophils # (Auto) 0.3 0.0-0.3 10^3/uL Basophils # (Auto) 0.1 0.0-0.1 10^3/uL Immature Granulocyte # (Auto) 0.0 0.0-0.1 10^3/uL Neutrophils % (Manual) 78 % Lymphocytes % (Manual) 10 % Monocytes % (Manual) 5 % Eosinophils % (Manual) 5 % Band Neutrophils 2 % Polychromasia SLIGHT Hypochromasia SLIGHT [place] Cells SLIGHT Prothrombin Time 16.4 H 12.2-14.7 SEC INR Comment 1.3 0.8-1.4 Activated Partial Thromboplast Time 32 24-35 SEC Sodium Level 135 135-145 MMOL/L Potassium Level 4.2 3.6-5.0 MMOL/L Chloride Level 104 98-107 MMOL/L Carbon Dioxide Level 20 L 21-32 MMOL/L Anion Gap 11 5-14 MMOL/L Blood Urea Nitrogen 15 7-18 MG/DL Creatinine 0.68 0.60-1.30 MG/DL Estimat Glomerular Filtration Rate 83 BUN/Creatinine Ratio 22 Glucose Level 179 H 70-105 MG/DL Lactic Acid Level 0.92 0.50-2.00 MMOL/L Calcium Level 8.6 8.5-10.1 MG/DL Corrected Calcium 9.0 8.5-10.1 MG/DL Total Bilirubin 0.5 0.1-1.0 MG/DL Aspartate Amino Transf (AST/SGOT) 13 5-34 U/L Alanine Aminotransferase (ALT/SGPT) 12 0-55 U/L Alkaline Phosphatase 73 40-136 U/L B-Type Natriuretic Peptide 467.8 H <100.0 PG/ML Total Protein 8.1 6.4-8.2 GM/DL Albumin 3.5 3.2-4.5 GM/DL Procalcitonin 0.05 <0.10 NG/ML Blood Gas Puncture Site RIGHT RAD Blood Gas Patient Temperature 37 Arterial Blood pH 7.36 L 7.37-7.43 Arterial Blood Partial Pressure CO2 44 35-45 MMHG Arterial Blood Partial Pressure O2 55 L 79-93 MMHG Arterial Blood HCO3 25 23-27 MMOL/L Arterial Blood Total CO2 26.0 21.0-31.0 MMOL/L Arterial Blood Oxygen Saturation 85 L 94-100 % Arterial Blood Base Excess -0.1 -2.5-2.5 MMOL/L Alejandro Test NA Blood Gas Ventilator Setting NO Blood Gas Inspired Oxygen 45% Urine Color YELLOW Urine Clarity CLEAR Urine pH 6.0 5-9 Urine Specific [place] 1.025 H 1.016-1.022 Urine Protein TRACE H NEGATIVE Urine Glucose (UA) NEGATIVE NEGATIVE Urine Ketones NEGATIVE NEGATIVE Urine Nitrite NEGATIVE NEGATIVE Urine Bilirubin NEGATIVE NEGATIVE Urine Urobilinogen 1.0 < = 1.0 MG/DL Urine Leukocyte Esterase 1+ H NEGATIVE Urine RBC (Auto) TRACE-I H NEGATIVE Urine RBC 0-2 /HPF Urine WBC 5-10 H /HPF Urine Squamous Epithelial Cells 0-2 /HPF Urine Crystals NONE /LPF Urine Bacteria FEW H /HPF Urine Casts NONE /LPF Urine Mucus NEGATIVE /LPF Urine Culture Indicated CULTURE PENDING SARS-CoV-2 RNA (RT-PCR) Not Detected Not Detecte (JUAREZ DAWSON MD) Medications Given in ED Current Medications Medications Dose Ordered Sig/Kervin Route Start Time Stop Time Status Last Admin Dose Admin Iohexol 75 ml ONCE ONCE IV 09/23/21 12:30 09/23/21 12:31 DC 09/23/21 12:48 85 ML Sodium Chloride 100 ml ONCE ONCE IV 09/23/21 12:30 09/23/21 12:31 DC 09/23/21 12:48 80 ML (JUAREZ DAWSON MD) Vital Signs/I&O 09/23/21 09/23/21 09/23/21 10:55 10:55 11:09 Temp 36.7 Pulse 96 93 Resp 18 20 B/P (MAP) 139/88 (105) Pulse Ox 99 99 O2 Delivery Non Rebreather Non Rebreather O2 Flow Rate 15.00 15.00 45.00 (JUAREZ DAWSON MD) Vital Signs/I&O Capillary Refill : (NIK MCKEON APRN) Departure Communication (Admissions) 1320-she does quickly desaturate down to 79 to 80% with a good waveform when placed on her baseline 3 L. She states the BiPAP does ease her breathing so I put her on that at 45% FiO2 settings 10/5. She has had 2 doses of morphine 2 mg at a time. She has some tenderness to palpation over the left side of her neck posteriorly worsened with movement. I did an injection of 1.5 mL of lidocaine without epinephrine into the cervical paraspinous muscle which did help with symptom control. CT angio chest is pending. Procalcitonin is not significantly elevated suggesting less likely to be bacterial pneumonia, she is not wheezy though she is quite diminished. Her BNP is somewhat elevated and CHF may be a more likely diagnosis here. Potassium is okay at 4.2 she will give 40 mg of IV Lasix. Blood pressure is fine at a current 136/76 heart rate of 84 a-fib and she is managed [facility] Eliquis 2.[facility]. Family Conversation NAME: JULES REYES [facility] REC#: [id number] PT STATUS: REG ER : 1935 PHYSICIAN: NIK MCKEON APRN ADMIT DATE: 09/23/21/ER Draft Date of Exam:09/23/21 CT ANGIO CHEST W PROCEDURE: CT angiography Chest. TECHNIQUE: After intravenous administration of contrast, thin section axial CT angiography of the chest was performed. 3D MIP reconstructions were made. All CT scans use one or more of the following dose optimizing techniques: automated exposure control, MA and/or KvP adjustment based on a patient size and exam type, or iterative reconstruction. INDICATION: Hypoxia. COMPARISON: CT chest of 05/28/2019. FINDINGS: Vasculature: No pulmonary emboli. No CT evidence of pulmonary hypertension or right ventricular strain. Normal-caliber thoracic aorta. Aorta is not opacified and cannot be evaluated for dissection. Heart and mediastinum: Visualized thyroid is normal. There are a few mildly enlarged mediastinal and hilar lymph nodes, with the largest measuring 1.1 cm in the lower right paratracheal position. This is unchanged since prior exam. Cardiomegaly status post CABG. No pericardial effusion. Pleura: Trace bilateral pleural effusions. Smooth septal lines are present throughout both lungs. Moderate centrilobular emphysema. Subpleural atelectasis is present in the lung bases. Lungs and airway: No endoluminal lesion in the trachea or central bronchi. No pulmonary mass, nodule or consolidation. Upper abdomen: Allowing for the phase of contrast, no acute abnormality in the upper abdomen is seen. Musculoskeletal: No concerning osseous lesion. IMPRESSION: 1. No pulmonary emboli. 2. Mild pulmonary edema with trace bilateral pleural effusions. Dictated on workstation # [id number] Dict: 09/23/21 1255 Trans: 09/23/21 1317 [id number] [id number] Interpreted by: MILAGROS GOODWIN MD Electronically signed by: NAME: JULES REYES [facility] REC#: [id number] PT STATUS: REG ER : 1935 PHYSICIAN: NIK MCKEON APRN ADMIT DATE: 09/23/21/ER Draft Date of Exam:09/23/21 CHEST 1 VIEW, AP/PA ONLY EXAMINATION: Chest 1 view HISTORY: Sepsis. Shortness of breath. COMPARISON: 06/18/2020. FINDINGS: There is cardiomegaly with central pulmonary vascular congestion and scattered interstitial and alveolar opacities throughout the lungs. Possible small left pleural effusion. No pneumothorax. IMPRESSION: 1. Findings suggestive of cardiomegaly with pulmonary edema. Infection can also have this appearance. Recommend follow-up as indicated. 2. Small left pleural effusion. Dictated on workstation # [id number] Dict: 09/23/21 1147 Trans: 09/23/21 1205 [id number] [id number] Interpreted by: CELESTINA HILLMAN DO Electronically signed by: (NIK MCKEON APRN) Impression Primary Impression: CHF exacerbation Disposition: ADMITTED INPATIENT Condition: Stable Admissions Decision to Admit Reason: Admit from ER (General) Decision to Admit/Date: Sep 23, 2021 Time/Decision to Admit Time: 13:22 (NIK MCKEON APRN) Departure-Patient Inst. Referrals: SHANIQUE VEGA MD (PCP/Family) Primary Care Physician ATTENDING PHYSICIAN NOTE: I was physically present as attending physician in the emergency department during the care of this patient, but I was not directly involved in the decision making or delivery of care for this patient. (JUAREZ DAWSON MD) NIK MCKEON APRN Sep 23, 2021 10:56 JUAREZ DAWSON MD Sep 23, 2021 18:53
[2021-09-23 11:04] LABS: BASOPHILS # (AUTO) 0.1 10^3/uL (0.0-0.1); BASOPHILS % (AUTO) 1 % (0-10); EOSINOPHILS # (AUTO) 0.3 10^3/uL (0.0-0.3); EOSINOPHILS % (AUTO) 3 % (0-10); HEMATOCRIT 32 % (35-52); HEMOGLOBIN 9.6 g/dL (11.5-16.0); LYMPHOCYTES # (AUTO) 0.8 10^3/uL (1.0-4.0); LYMPHOCYTES % (AUTO) 8 % (12-44); MEAN CORPUSCULAR HEMOGLOBIN 25 pg (25-34); MEAN CORPUSCULAR HGB CONC 31 g/dL (32-36); MEAN CORPUSCULAR VOLUME 81 fL (80-99); MONOCYTES # (AUTO) 0.7 10^3/uL (0.0-1.0); MONOCYTES % (AUTO) 7 % (0-12); NEUTROPHILS # (AUTO) 8.4 10^3/uL (1.8-7.8); NEUTROPHILS % (AUTO) 82 % (42-75); PLATELET COUNT 352 10^3/uL (130-400); WHITE BLOOD COUNT 10.3 10^3/uL (4.3-11.0)
[2021-09-23 11:09] VITALS: BP 145/86
[2021-09-23 11:17] LABS: INR 1.3 (0.8-1.4); PROTHROMBIN TIME PATIENT 16.4 SEC (12.2-14.7)
[2021-09-23 11:22] LABS: BAND NEUTROPHILS 2 %; EOSINOPHILS % (MANUAL) 5 %; HYPOCHROMASIA SLIGHT; LYMPHOCYTES % (MANUAL) 10 %; MONOCYTES % (MANUAL) 5 %; NEUTROPHILS % (MANUAL) 78 %; POLYCHROMASIA SLIGHT
[2021-09-23 11:23] LABS: ALBUMIN 3.5 GM/DL (3.2-4.5); BILIRUBIN,TOTAL 0.5 MG/DL (0.1-1.0); BURR CELLS SLIGHT; CALCIUM 8.6 MG/DL (8.5-10.1); CREATININE SERUM 0.68 MG/DL (0.60-1.30); POTASSIUM 4.2 MMOL/L (3.6-5.0); TOTAL PROTEIN 8.1 GM/DL (6.4-8.2)
[2021-09-23 11:23] LABS: BILIRUBIN,URINE NEGATIVE (NEGATIVE); CLARITY,URINE CLEAR; COLOR,URINE YELLOW; GLUCOSE, URINE (UA) NEGATIVE (NEGATIVE); KETONES,URINE NEGATIVE (NEGATIVE); LEUKOCYTE ESTERASE ,URINE 1+ (NEGATIVE); NITRITE,URINE NEGATIVE (NEGATIVE); PROTEIN,URINE TRACE (NEGATIVE)
[2021-09-23 11:27] LABS: ABG BASE EXCESS -0.1 MMOL/L (-2.5-2.5); ABG OXYGEN SATURATION 85 % (94-100); ABG PCO2 44 MMHG (35-45); ABG PH 7.36 (7.37-7.43); ABG PO2 55 MMHG (79-93)
[2021-09-23 11:28] LABS: INSPIRED O2 45%; PATIENT TEMP 37; VENTILATOR NO
[2021-09-23 11:46] LABS: BACTERIA,URINE FEW /HPF; RBC,URINE 0-2 /HPF; SQUAMOUS EPITHELIAL CELL,UR 0-2 /HPF
--- NOTE | 2021-09-23 12:06 | Diagnostic Imaging Report ---
EXAMINATION: Chest 1 view HISTORY: Sepsis. Shortness of breath. COMPARISON: 06/18/2020. FINDINGS: There is cardiomegaly with central pulmonary vascular congestion and scattered interstitial and alveolar opacities throughout the lungs. Possible small left pleural effusion. No pneumothorax. IMPRESSION: 1. Findings suggestive of cardiomegaly with pulmonary edema. Infection can also have this appearance. Recommend follow-up as indicated. 2. Small left pleural effusion. Dictated by: Dictated on workstation # [id number]
[2021-09-23] MEDS ORDERED: HOLD METFORMIN - RECEIVED CONTRAST 20 ML VIAL IV SCH (12:30)
[2021-09-23] MEDS ORDERED: IOHEXOL 350 MG/ML 100 ML (OMNIPAQUE 350) VIAL IV ONE (12:30)
[2021-09-23] MEDS ORDERED: NS 100 ML (IVPB) BAG IV ONE (12:30)
--- NOTE | 2021-09-23 13:02 | Diagnostic Imaging Report ---
PROCEDURE: CT head and CT cervical spine without contrast. TECHNIQUE: Multiple contiguous axial images were obtained through the brain and cervical spine without the use of intravenous contrast. Sagittal and coronal reformations through the cervical spine were then performed. Auto Exposure Controls were utilized during the CT exam to meet ALARA standards for radiation dose reduction. INDICATION: Shortness of breath. Confusion. Head and neck pain. COMPARISON: 01/14/2020. FINDINGS: CT head: No large acute territorial ischemia, mass, or hemorrhage. No midline shift or mass effect. Decreased attenuation is seen in the periventricular and subcortical white matter. The ventricles and cortical sulci are prominent. The basilar cisterns are patent and unremarkable. Left frontotemporal craniotomy changes are seen. Small amount of fluid is seen in the right sphenoid sinus. The mastoid air cells are clear. CT cervical spine: No acute fracture or dislocation is seen in the cervical spine. No focal osseous lesions. There is reversal of the normal lordotic curvature of the cervical spine centered at the C5 level. Endplate sclerotic changes are seen at C5-C6. There is osseous fusion of the C6-C7 vertebral bodies. The craniocervical junction is well-maintained. Moderate degenerative changes are seen in the cervical spine with disc osteophyte complexes and uncovertebral arthropathy. Soft tissues of the neck are unremarkable. Emphysema is seen in the lung apices. IMPRESSION: 1. No hemorrhage or focal intra-axial mass. No CT evidence of large acute territorial ischemia. 2. No acute fracture or dislocation in the cervical spine. 3. Small amount of fluid in the right sphenoid sinus, which can be seen with acute sinusitis. Dictated by: Dictated on workstation # [id number]
--- NOTE | 2021-09-23 13:18 | Diagnostic Imaging Report ---
PROCEDURE: CT angiography Chest. TECHNIQUE: After intravenous administration of contrast, thin section axial CT angiography of the chest was performed. 3D MIP reconstructions were made. All CT scans use one or more of the following dose optimizing techniques: automated exposure control, MA and/or KvP adjustment based on a patient size and exam type, or iterative reconstruction. INDICATION: Hypoxia. COMPARISON: CT chest of 05/28/2019. FINDINGS: Vasculature: No pulmonary emboli. No CT evidence of pulmonary hypertension or right ventricular strain. Normal-caliber thoracic aorta. Aorta is not opacified and cannot be evaluated for dissection. Heart and mediastinum: Visualized thyroid is normal. There are a few mildly enlarged mediastinal and hilar lymph nodes, with the largest measuring 1.1 cm in the lower right paratracheal position. This is unchanged since prior exam. Cardiomegaly status post CABG. No pericardial effusion. Pleura: Trace bilateral pleural effusions. Smooth septal lines are present throughout both lungs. Moderate centrilobular emphysema. Subpleural atelectasis is present in the lung bases. Lungs and airway: No endoluminal lesion in the trachea or central bronchi. No pulmonary mass, nodule or consolidation. Upper abdomen: Allowing for the phase of contrast, no acute abnormality in the upper abdomen is seen. Musculoskeletal: No concerning osseous lesion. IMPRESSION: 1. No pulmonary emboli. 2. Mild pulmonary edema with trace bilateral pleural effusions. Dictated by: Dictated on workstation # [id number]
--- NOTE | 2021-09-23 13:20 | History & Physical-Hospitalist ---
History of Present Illness HPI/Chief Complaint Chief complaint: Shortness of breath with respiratory insufficiency History present illness: This is an 85-year-old group home patient who presented to the ER with shortness of breath and wheezing. BNP was normal. B iPAP was required. ABG obtained. DNR maintained. No other details due to hypoxia and BiPAP requirement Source: patient Exam Limitations: clinical condition (BiPAP) Date Seen 09/23/21 Time Seen by a Provider: 13:00 Attending Physician PCP Itz Chacon MD Referring Physician Date of Admission Home Medications & Allergies Home Medications Reviewed patient Home Medication Reconciliation performed by pharmacy medication reconciliations compounding pharmacy technician and/or nursing. Patients Allergies have been reviewed. Allergies Allergies Coded Allergies Sulfa (Sulfonamide Antibiotics) (Verified Allergy, Unknown, 04/16/19) diphenhydramine HCl (Verified Allergy, Unknown, 04/16/19) hydrochlorothiazide (Unverified Allergy, Unknown, 04/16/19) varenicline tartrate (Verified Allergy, Unknown, 04/16/19) Past Aarctbw-Jjrkoq-Nvqviz Hx Patient Social History Marrital Status: single Employed/Student: retired Tobacco Use?: No Smoking Status: Unknown if Ever Smoked Substance use?: No Alcohol Use?: No Immunizations Up To Date Date of Influenza Vaccine: Aug 19, 2017 First/Initial COVID19 Vaccinat: yes Second COVID19 Vaccination Robert: yes Tetanus Booster (TDap): Unknown Hepatitis A: No Hepatitis B: No PED Vaccines UTD: No Date of Pneumonia Vaccine: Sep 05, 2014 Seasonal Allergies Seasonal Allergies: No Current Status Advance Directives: Yes Primary Language: Bermudian Preferred Spoken Language: Bermudian Past Medical History Surgeries: Adenoidectomy, Appendectomy, Bladder Surgery, Cardiac, CABG, Gallbladder, Hysterectomy, Joint Replacement, Orthopedic, Tonsillectomy Asthma, COPD Currently Using CPAP: No Currently Using BIPAP: No Aneurysm, Atrial Fibrillation, Coronary Artery Disease, High Cholesterol, Hypertension 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 Hypertension 2. Hyperlipidemia 3. COPD 4. Osteoarthritis 5. CAD with history of PTCA x2, CABG with Vetch 01/02 6. Urinary Tract Infections recently treated on 09-25 and 11-02-14, now again on 02-25-15 with VRE and Klebsiella 7. Recurrent mental status changes 8. Frequent falls with concern for safety at home 9. Unintentional medication overdoses- pt. will take more medication than prescribed and forget she took them. 10. Diabetes Mellitus- HgA1C in 2013 7.0 pt. needs medications Past Surgical History 1. intracranial anuerysm repair 2.bilateral rotator cuff repair 3. cervical fusion 4. low back surgery x 2, 5. knee replacement 6. hysterectomy 7. carpal tunnel release bilaterally 8. Tonsillectomy 9. Cardiac Cath- Shan 10. CABG x3 Vetch 01-02. 11. adenoidectomy Family Medical History Cancer 09 SISTER Cancer of colon Cataract 03 MOTHER, Onset:Unknown Family history: Allergy 03 FATHER, Onset:Unknown 03 MOTHER, Onset:Unknown Family history: Arthritis 03 FATHER, Onset:Unknown 03 MOTHER, Onset:Unknown 09 SISTER, Onset:Unknown Family history: Cardiovascular disease 03 FATHER, Onset:Unknown 03 MOTHER, Onset:Unknown 09 BROTHER, Onset:Unknown 09 SISTER, Onset:Unknown Family history: Diabetes mellitus 03 MOTHER, Onset:Unknown Family history: Gastrointestinal disease 03 FATHER, Onset:Unknown Family history: Hypertension 03 MOTHER, Onset:Unknown Family history: Osteoporosis 03 MOTHER, Onset:Unknown Hearing loss 03 FATHER, Onset:Unknown Heart disease 03 FATHER, Onset:Unknown 03 MOTHER, Onset:Unknown 09 BROTHER, Onset:Unknown Hypercholesterolemia 03 MOTHER, Onset:Unknown Malignant neoplasm of lung 09 SISTER, Onset:Unknown Myocardial infarction 09 BROTHER, Onset:Unknown Parkinson's disease Stroke 03 FATHER, Onset:Unknown Thyroid disease No Family History of: Abdominal aortic aneurysm [place]'s disease Alcoholism Aphasia Chest pain Congenital heart disease Congestive heart failure Cystic fibrosis Dementia Dysphagia Family history: Alzheimer's disease Family history: Asthma Family history: Breast disease Family history: Coronary thrombosis Family history: Glaucoma Family history: Thyroid disorder Headache Hereditary disease History of - anemia History of - disorder History of - respiratory disease History of drug abuse Human immunodeficiency virus (HIV) seropositivity Infertile Kidney disease Prostate cancer Psychotic disorder Seizure disorder Tuberculosis Visual impairment Heart Disease, Diabetes Review of Systems ROS-Unable to Obtain: Clinical status Constitutional: see HPI Physical Exam Physical Exam Vital Signs Vital Signs - First Documented 09/23/21 16:08 FiO2 45 Capillary Refill : Less Than 3 Seconds Height, Weight, BMI Height: 5'2.00" Weight: 165lbs. 7.0oz. 74.095313tr; 30.00 BMI Method:Stated General Appearance: Anxious, Chronically ill, Moderate Distress Eyes: Right Eye Normal Inspection, Right Eye PERRL HEENT: PERRL/EOMI, Normal ENT Inspection, Pharynx Normal, Moist Mucous Membranes Neck: Full Range of Motion, Normal Inspection, Non Tender Respiratory: Chest Non Tender, Lungs Clear, Normal Breath Sounds, No Accessory Muscle Use, No Respiratory Distress, Decreased Breath Sounds Cardiovascular: Regular Rate, Rhythm, No Edema, No Gallop, No JVD, No Murmur, Normal Peripheral Pulses Gastrointestinal: Normal Bowel Sounds, No Organomegaly, No Pulsatile Mass, Non Tender, Soft Back: Normal Inspection, No CVA Tenderness, No Vertebral Tenderness Extremity: Normal Capillary Refill, Normal Inspection, Normal Range of Motion, Non Tender, No Calf Tenderness, No Pedal Edema Neurologic/Psychiatric: Alert, Oriented x3, No Motor/Sensory Deficits, Normal Mood/Affect Skin: Normal Color, Warm/Dry Lymphatic: No Adenopathy Results Results/Procedures Labs Laboratory Tests 09/23/21 10:48 09/24/21 04:58 Patient resulted labs reviewed. Assessment/Plan Admission Diagnosis Assessment: Acute respiratory insufficiency due to acute hypoxic respiratory failure BiPAP required COPD Chronic hypoxia requiring supplemental oxygen at home Plan: Cardiac stepdown DNR BiPAP Cardiology consult Admission Status: Inpatient Order (span 2 midnights) Reason for Inpatient Admission: Respiratory insufficiency BARBER CRONIN DO Sep 23, 2021 13:20
[2021-09-23] MEDS ORDERED: FUROSEMIDE 40 MG/4 ML INJ (LASIX) IVP ONE (13:30)
[2021-09-23] MEDS ORDERED: ACETAMINOPHEN 500 MG TAB (TYLENOL) PO PRN (16:00)
[2021-09-23] MEDS ORDERED: DOCUSATE SODIUM 100 MG (COLACE) CAP PO PRN (16:00)
[2021-09-23] MEDS ORDERED: LOPERAMIDE 2 MG (IMODIUM) TABLET PO PRN (16:00)
[2021-09-23] MEDS ORDERED: guaiFENesin/CODEINE (ROBITUSSIN AC) 10ML UDC PO PRN (16:00)
[2021-09-23] MEDS ORDERED: ONDANSETRON 4 MG/2 ML (SDV) Z0FRAN IVP PRN (16:00)
[2021-09-23] MEDS ORDERED: AZITHROMYCIN INJECTION 500 MG in NS (IVPB) 250 ML IV ONE (16:00)
[2021-09-23] MEDS ORDERED: CALCIUM CARBONATE 500 MG (TUMS) TAB.CHEW PO PRN (16:00)
[2021-09-23] MEDS ORDERED: BISACODYL 10 MG SUPP (DULCOLAX) PR PRN (16:00)
[2021-09-23 16:06] VITALS: BP 117/76
[2021-09-23 16:08] VITALS: BP_SYST 117; BP_SYST 133; BP_DIAS 71; BP_DIAS 76
[2021-09-23] MEDS ORDERED: RT-ALBUTEROL/IPRATROPIUM 3 ML (DUONEB) VIAL INH PRN (16:15)
[2021-09-23] MEDS: HYDROcodone/APAP 5 MG/325 MG (LORTAB) TAB PO PRN (16:29)
[2021-09-23] MEDS: CEFEPIME INJECTION 1,000 MG in WATER (STERILE) FOR INJECTION 10 ML IV SCH ×2 (16:30→23:35)
[2021-09-23] MEDS: methylPREDNISolone 40 MG/ML (Solu-MEDROL) VIAL IV SCH ×2 (16:31→23:35)
[2021-09-23 17:42] VITALS: BP 129/78
[2021-09-23] MEDS: morphine INJ 10 MG/ML 1ML (SYR OR VIAL) IVP PRN ×2 (17:43→23:34)
[2021-09-23 20:00] VITALS: BP 115/94
[2021-09-23] MEDS: RT-ALBUTEROL/IPRATROPIUM 3 ML (DUONEB) VIAL INH SCH (21:20)
[2021-09-23] MEDS: SENNA W/DOCUSATE (SENOKOT S) TABLET PO SCH (23:36)
[2021-09-23] MEDS: APIXABAN 5 MG (ELIQUIS) TABLET PO SCH (23:36)
[2021-09-24] VITALS (9 sets, daily range): BP systolic 104–138; BP diastolic 58–100
[2021-09-24] MEDS: RT-ALBUTEROL/IPRATROPIUM 3 ML (DUONEB) VIAL INH SCH ×4 (02:22→21:51)
[2021-09-24] MEDS: morphine INJ 10 MG/ML 1ML (SYR OR VIAL) IVP PRN ×2 (04:28→06:56)
[2021-09-24 05:37] LABS: BASOPHILS % (AUTO) 0 % (0-10); EOSINOPHILS % (AUTO) 0 % (0-10); HEMATOCRIT 30 % (35-52); HEMOGLOBIN 8.8 g/dL (11.5-16.0); LYMPHOCYTES # (AUTO) 0.5 10^3/uL (1.0-4.0); LYMPHOCYTES % (AUTO) 9 % (12-44); MEAN CORPUSCULAR HEMOGLOBIN 24 pg (25-34); MEAN CORPUSCULAR HGB CONC 30 g/dL (32-36); MEAN CORPUSCULAR VOLUME 80 fL (80-99); MEAN PLATELET VOLUME 10.1 fL (9.0-12.2); MONOCYTES % (AUTO) 1 % (0-12); NEUTROPHILS % (AUTO) 90 % (42-75); PLATELET COUNT 327 10^3/uL (130-400); WHITE BLOOD COUNT 5.6 10^3/uL (4.3-11.0)
[2021-09-24 06:00] LABS: ALBUMIN 3.4 GM/DL (3.2-4.5); BILIRUBIN,TOTAL 0.4 MG/DL (0.1-1.0); CALCIUM 8.4 MG/DL (8.5-10.1); CREATININE SERUM 0.71 MG/DL (0.60-1.30); POTASSIUM 3.7 MMOL/L (3.6-5.0); TOTAL PROTEIN 7.6 GM/DL (6.4-8.2)
[2021-09-24] MEDS: CEFEPIME INJECTION 1,000 MG in WATER (STERILE) FOR INJECTION 10 ML IV SCH ×3 (06:55→22:26)
[2021-09-24] MEDS: methylPREDNISolone 40 MG/ML (Solu-MEDROL) VIAL IV SCH ×4 (06:55→23:50)
[2021-09-24] MEDS: APIXABAN 5 MG (ELIQUIS) TABLET PO SCH ×2 (08:50→20:04)
[2021-09-24] MEDS: SENNA W/DOCUSATE (SENOKOT S) TABLET PO SCH ×2 (08:50→21:00)
[2021-09-24] MEDS: ALPRAZolam 0.25 MG (XANAX) TAB PO PRN ×2 (08:50→17:11)
[2021-09-24] MEDS: FUROSEMIDE 40 MG/4 ML INJ (LASIX) IVP SCH (08:50)
[2021-09-24] MEDS: morphine INJ 4 MG/ML 1 ML (VIAL/SYRINGE) IV PRN ×4 (10:12→22:26)
[2021-09-24] MEDS: AZITHROMYCIN INJECTION 250 MG in NS (IVPB) 250 ML IV SCH (10:13)
--- NOTE | 2021-09-24 10:54 | Progress Note - Hospitalist ---
Subjective HPI/CC On Admission Date Seen by Provider: Sep 24, 2021 Time Seen by Provider: 10:30 Chief complaint: Shortness of breath with respiratory insufficiency History present illness: This is an 85-year-old correction patient who presented to the ER with shortness of breath and wheezing. BNP was normal. BiPAP was required. ABG obtained. DNR maintained. No other details due to hypoxia and BiPAP requirement Subjective/Events-last exam Patient still BiPAP dependent Lasix providing aggressive diuresis Cardiology appreciated Xanax given K pad and diclofenac gel will help with neck pain Overall poor prognosis Review of Systems General: Fatigue, Malaise Pulmonary: Dyspnea Focused Exam Lactate Level 09/23/21 10:48: Lactic Acid Level 0.92 Objective Exam Vital Signs Vital Signs Date Time Temp Pulse Resp B/P (MAP) Pulse Ox O2 Delivery O2 Flow Rate FiO2 09/24/21 12:50 116 09/24/21 12:00 37.1 24 105/58 (74) 94 NIV Bilevel 45.00 09/23/21 16:08 45 Capillary Refill : Less Than 3 Seconds General Appearance: No Apparent Distress, WD/WN, Chronically ill Respiratory: No Accessory Muscle Use, No Respiratory Distress, Decreased Breath Sounds Cardiovascular: Regular Rate, Rhythm Neurologic/Psychiatric: Alert, Oriented x3, No Motor/Sensory Deficits, Normal Mood/Affect Results/Procedures Lab Laboratory Tests 09/24/21 04:58 Patient resulted labs reviewed. Assessment/Plan Assessment and Plan Assess & Plan/Chief Complaint Assessment: Acute respiratory insufficiency due to acute hypoxic respiratory failure BiPAP required COPD Chronic hypoxia requiring supplemental oxygen at home Plan: Cardiac stepdown DNR BiPAP Cardiology consult 09/24/2021: BiPAP Cardiology consult K pad and diclofenac gel Prognosis poor BARBER CRONIN DO Sep 24, 2021 10:54
[2021-09-24] MEDS: DICLOFENAC 1% GEL 100 GM (VOLTAREN) TUBE TOP SCH ×3 (11:58→21:00)
--- NOTE | 2021-09-24 13:25 | Consultation-Cardiology ---
HPI-Cardiology Cardiology Consultation: Date of Consultation 09/24/21 Date of Admission Attending Physician Susy Maguire DO Admitting Physician Itz Chacon MD Consulting Physician CHELLE GOETZ MD, FACP, [facility] RIE-Vfiqbe-Ujfxcq Hx Patient Social History Marrital Status: single Employed/Student: retired Smoking Status: Unknown if Ever Smoked Former smoker/When Quit: Feb 03, 2013 2nd Hand Smoke Exposure: No Have you traveled recently?: No Alcohol Use?: No Immunizations Up To Date Tetanus Booster (TDap): Unknown Date of Pneumonia Vaccine: Sep 05, 2014 Date of Influenza Vaccine: Aug 23, 2021 Past Medical History PMH As described under Assessment. Family Medical History Family Medical History: She reports fam history of PA and heart disease and hypertension and stroke, but is unable to provide details Family History: Cancer 09 SISTER Cancer of colon Cataract 03 MOTHER, Onset:Unknown Family history: Allergy 03 FATHER, Onset:Unknown 03 MOTHER, Onset:Unknown Family history: Arthritis 03 FATHER, Onset:Unknown 03 MOTHER, Onset:Unknown 09 SISTER, Onset:Unknown Family history: Cardiovascular disease 03 FATHER, Onset:Unknown 03 MOTHER, Onset:Unknown 09 BROTHER, Onset:Unknown 09 SISTER, Onset:Unknown Family history: Diabetes mellitus 03 MOTHER, Onset:Unknown Family history: Gastrointestinal disease 03 FATHER, Onset:Unknown Family history: Hypertension 03 MOTHER, Onset:Unknown Family history: Osteoporosis 03 MOTHER, Onset:Unknown Hearing loss 03 FATHER, Onset:Unknown Heart disease 03 FATHER, Onset:Unknown 03 MOTHER, Onset:Unknown 09 BROTHER, Onset:Unknown Hypercholesterolemia 03 MOTHER, Onset:Unknown Malignant neoplasm of lung 09 SISTER, Onset:Unknown Myocardial infarction 09 BROTHER, Onset:Unknown Parkinson's disease Stroke 03 FATHER, Onset:Unknown Thyroid disease No Family History of: Abdominal aortic aneurysm [place]'s disease Alcoholism Aphasia Chest pain Congenital heart disease Congestive heart failure Cystic fibrosis Dementia Dysphagia Family history: Alzheimer's disease Family history: Asthma Family history: Breast disease Family history: Coronary thrombosis Family history: Glaucoma Family history: Thyroid disorder Headache Hereditary disease History of - anemia History of - disorder History of - respiratory disease History of drug abuse Human immunodeficiency virus (HIV) seropositivity Infertile Kidney disease Prostate cancer Psychotic disorder Seizure disorder Tuberculosis Visual impairment Allergies and Home Medications Allergies Coded Allergies: Sulfa (Sulfonamide Antibiotics) (Verified Allergy, Unknown, 04/16/19) diphenhydramine HCl (Verified Allergy, Unknown, 04/16/19) hydrochlorothiazide (Unverified Allergy, Unknown, 04/16/19) varenicline tartrate (Verified Allergy, Unknown, 04/16/19) Patient Home Medication List Acetaminophen (Acetaminophen) 325 Mg Tablet, 650 MG PO Q4H PRN for PAIN-MILD, (Reported) Entered as Reported by: LLOYD CUEVAS on 04/01/18 0904 Albuterol Sulfate (Proair Hfa) 8.5 Gm Hfa.aer.ad, 2 PUFF IH Q6H PRN for SHORTNESS OF BREATH, (Reported) Entered as Reported by: JOSEE VELAZQUEZ on 05/14/16 1655 Apixaban (Eliquis) 2.5 Mg Tablet, 2.5 MG PO BID, (Reported) Entered as Reported by: PATSY RODRIGUEZ on 06/19/20 0947 Aspirin (Aspirin) 81 Mg Tab.chew, 81 MG PO Q48H, (Reported) Entered as Reported by: PATSY RODRIGUEZ on 06/19/20 0947 Atorvastatin Calcium (Lipitor) 40 Mg Tablet, 40 MG PO DAILY, (Reported) Entered as Reported by: HENRRY CONNER on 02/06/17 1353 Benzocaine (Oral Analgesic) 9 Gm Gel..gram., 1 APPLIC MM QID PRN for PAIN-MILD (1-4), (Reported) Entered as Reported by: PATSY RODRIGUEZ on 06/19/20 1001 Budesonide/Formoterol Fumarate (Symbicort 160-4.5 Mcg Inhaler) 10.2 Gm Hfa.aer.ad, 2 PUFF IH BID, (Reported) Entered as Reported by: JOSEE VELAZQUEZ on 05/14/16 165 Bupropion HCl (Bupropion Xl) 300 Mg Tab.er.24h, 300 MG PO HS, (Reported) Entered as Reported by: JOSEE VELAZQUEZ on 05/14/161654 Cefdinir (Cefdinir) 300 Mg Capsule, 300 MG PO BID Prescribed by: JUAREZ CLAY on 09/06/211914 Cyclobenzaprine HCl (Cyclobenzaprine HCl) 5 Mg Tablet, 5 MG PO TID PRN for SPASMS Prescribed by: JUAREZ CLAY on 09/06/211911 Diltiazem HCl (Cardizem Cd) 300 Mg Cap.er.24h, 300 MG PO DAILY, (Reported) Entered as Reported by: PATSY RODRIGUEZ on 06/19/20 0942 Docusate Sodium (Colace) 100 Mg Capsule, 100 MG PO DAILY Prescribed by: JUAREZ CLAY on 09/06/211911 Ferrous Sulfate (Ferrous Sulfate) 325 Mg Tablet.dr, 325 MG PO DAILY, (Reported) Entered as Reported by: BOBBI TURNER on 06/20/20 1303 Furosemide (Furosemide) 20 Mg Tablet, 20 MG PO Q48H, (Reported) Entered as Reported by: JOSEE VELAZQUEZ on 05/14/16 165 Gabapentin (Gabapentin) 400 Mg Capsule, 400 MG PO TID, (Reported) Entered as Reported by: JOSEE VELAZQUEZ on 05/14/16 165 Guaifenesin/Dextromethorphan (Robitussin Cough-Chest Dm Liq) 237 Ml Liquid, 5 ML PO Q4H PRN for COUGH, (Reported) Entered as Reported by: DAVID FIGUEROA on 04/17/19 0850 Hydrocodone/Acetaminophen (Hydrocodone-Acetamin 7.5-325) 1 Each Tablet, 1 EACH PO Q4H Prescribed by: LES ETIENNE on 06/23/20 1101 Hydrocodone/Acetaminophen (Hydrocodone-Acetamin 5-325 mg) 1 Each Tablet, 1 TAB PO Q4H PRN for PAIN-MODERATE (5-7) Prescribed by: JUAREZ CLAY on 09/06/211912 Lorazepam (Ativan) 0.5 Mg Tablet, 0.25 MG PO BID, (Reported) Entered as Reported by: BOBBI TURNER on 06/20/20 1303 Mag Hydrox/Aluminum Hyd/Simeth (Maalox Advanced Suspension) 355 Ml Oral.susp, 30 ML PO Q4H PRN for INDIGESTION, (Reported) Entered as Reported by: DAVID FIGUEROA on 04/17/19 0850 Metoprolol Succinate (Metoprolol Succinate) 25 Mg Tab.er.24h, 25 MG PO DAILY, (Reported) Entered as Reported by: PATSY RODRIGUEZ on 06/19/20 0947 Mirabegron (Myrbetriq) 25 Mg Tab.er.24h, 25 MG PO DAILY, (Reported) Entered as Reported by: DAVID FIGUEROA on 04/17/19 0850 Oxybutynin Chloride (Oxybutynin Chloride ER) 10 Mg Tab.er.24, 10 MG PO DAILY, (Reported) Entered as Reported by: DAVID FIGUEROA on 04/17/19 0850 Pantoprazole Sodium (Pantoprazole Sodium) 40 Mg Tablet.dr, 40 MG PO DAILY, (Reported) Entered as Reported by: DAVID FIGUEROA on 04/17/19 0850 Potassium Chloride (Potassium Chloride) 20 Meq Tab.er.prt, 40 MEQ PO Q48H, (Reported) Entered as Reported by: JOSEE VELAZQUEZ on 05/14/16 1655 Propylene Glycol (Systane Complete) 1.5 Ml Drops, 1 DROP OU TID, (Reported) Entered as Reported by: PATSY RODRIGUEZ on 06/19/20 0954 Sertraline HCl (Zoloft) 100 Mg Tablet, 100 MG PO DAILY, (Reported) Entered as Reported by: PATSY RODRIGUEZ on 06/19/20 0938 Tamsulosin HCl (Flomax) 0.4 Mg Cap, 0.4 MG PO DAILY 30MIN P MEAL, (Reported) Entered as Reported by: DAVID FIGUEROA on 11/27/17 1051 Tramadol HCl (Tramadol HCl) 50 Mg Tablet, 50 MG PO TID, (Reported) Entered as Reported by: LLOYD CUEVAS on 04/01/18 0925 Trazodone HCl (Trazodone HCl) 50 Mg Tablet, 25 MG PO HS, (Reported) Entered as Reported by: LLOYD CUEVAS on 04/01/18 0923 [Flavoxate 100MG] , 100 MG PO TID PRN for BLADDER SPASMS, (Reported) Entered as Reported by: DAVID FIGUEROA on 04/17/19 0850 Physical Exam-Cardiology Physical Exam Vital Signs/I&O 09/24/21 09/24/21 09/24/21 09/24/21 04:00 04:06 07:00 07:36 Temp 36.2 Pulse 84 91 85 Resp 18 22 B/P (MAP) 123/100 (108) Pulse Ox 91 95 O2 Delivery NIV Bilevel NIV Bilevel O2 Flow Rate 45.00 45.00 09/24/21 09/24/21 09/24/21 09/24/21 07:49 09:58 12:00 12:50 Temp 36.7 37.1 Pulse 86 95 96 116 Resp 20 27 24 B/P (MAP) 131/70 (90) 105/58 (74) Pulse Ox 94 93 94 O2 Delivery NIV Bilevel NIV Bilevel O2 Flow Rate 45.00 30.00 45.00 09/23/21 23:59 Intake Total 1495 ml Output Total 2300 ml Balance -805 ml Capillary Refill : Less Than 3 Seconds Data Review Labs Laboratory Tests 09/24/21 04:58: White Blood Count 5.6, Red Blood Count 3.69L, Hemoglobin 8.8L, Hematocrit 30L, Mean Corpuscular Volume 80, Mean Corpuscular Hemoglobin 24L, Mean Corpuscular Hemoglobin Concent 30L, Red Cell Distribution Width 17.9H, Platelet Count 327, Mean Platelet Volume 10.1, Immature Granulocyte % (Auto) 1, Neutrophils (%) (Auto) 90H, Lymphocytes (%) (Auto) 9L, Monocytes (%) (Auto) 1, Eosinophils (%) (Auto) 0, Basophils (%) (Auto) 0, Neutrophils # (Auto) 5.0, Lymphocytes # (Auto) 0.5L, Monocytes # (Auto) 0.0, Eosinophils # (Auto) 0.0, Basophils # (Auto) 0.0, Immature Granulocyte # (Auto) 0.0, Sodium Level 134L, Potassium Level 3.7, Chloride Level 102, Carbon Dioxide Level 20L, Anion Gap 12, Blood Urea Nitrogen 14, Creatinine 0.71, Estimat Glomerular Filtration Rate 79, BUN/Creatinine Ratio 20, Glucose Level 187H, Calcium Level 8.4L, Corrected Calcium 8.9, Total Bilirubin 0.4, Aspartate Amino Transf (AST/SGOT) 10, Alanine Aminotransferase (ALT/SGPT) 9, Alkaline Phosphatase 66, Total Protein 7.6, Albumin 3.4 Microbiology 09/23/21 Blood Culture - Preliminary, Resulted Gram Positive Cocci A/P-Cardiology Assessment/Admission Diagnosis Ac diastolic CHF - Echo on 06/20/20: LVEF 50-55%, biatrial enlargement, mild to mod TR, pulm htn (PASP approx 60-65 mmHg) CAD - s/p [address] Maza at [facility] in : GREY to LAD, SVG to OM1 and SVG to PDA. Cardiac cath of Oct 15, 2017 (done following an MPI that showed apical ischemia) showed widely patent aortocoronary graft to the distal RCA, widely patent aortocoronary graft to OM system, widely patent left internal mammary artery graft to the distal LAD, normal to hyperdynamic LV systolic function with an ejection fraction of approx 70%, normal LVEDP, no evidence of thoracic aortic aneurysm or dissection, mod-sized infrarenal abdominal aortic aneurysm, mild prox stenosis of the left renal artery - MPI on 06/21/20: mild ant-lat ischemia (technically difficult study due to significant patient motion) normal LVEF H/O GI bleed with hypovolemic shock during hospitalization of April 16, 2019. GI bleed due to a bleeding prepyloric ulcer (managed by Dr. Lemus) - no recurrence Carotid arterial disease - s/p R CEA with Dr Valenzuela at [facility] in Dec 2017 - s/p L carotid PCI at [facility] in January 2018 (Dr Valenzuela). - Mild carotid arterial disease on carotid u/s of Nov 2019 Chronic atrial fib, first documented on an ECG of 09/27/17 at [facility], rate currently fairly well controlled - Eliquis for stroke prophylaxis H/o old lacunar infarction, including R internal capsule (based on w/u of Dec 2017 at [facility]) S/P right hip replacement PAD: - Peripheral angiogram with runoffs of March 2018: Moderate-sized, infrarenal, saccular abdominal aortic aneurysm. A 70% ostial and proximal stenoses of the renal arteries on both sides. 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 Proximal occlusion of the right superficial femoral artery which reconstitutes via collaterals in its distal portion. There is a 2- vessel runoff in the leg. Multiple up to 75% stenoses in the mid and distal portions of the left superficial femoral artery. For these findings she was referred to [facility]. - Arterial Doppler of both legs on 06/22/20: Bilateral lower extremity peripheral vascular disease. There are monophasic waveforms throughout the right lower extreme arterial system which can be seen with more proximal disease. There is a probable stenosis in the mid left SFA where there is some velocity elevation COPD Tobaccoism, quit 2009 HTN H/o hypothyroidism that is followed by her fam phy S/P suprapubic catheter placement per Dr. James on 11-26-2017 S/P umbilical hernia repair on 06-23-2020 by CHELLE Nuno MD [facility] Sep 24, 2021 13:25
--- NOTE | 2021-09-24 15:17 | Consultation-Cardiology ---
HPI-Cardiology Cardiology Consultation: Date of Consultation 09/24/21 Time Seen by a Provider: 14:10 Date of Admission 09/23/21 Attending Physician Susy Maguire DO Admitting Physician Itz Chacon MD Consulting Physician CHELLE GOETZ MD, MA, FACP, FACC, FSCAI, CCDS Physician requesting Card consult: Dr Maguire HPI: Chief Complaint: Malaise and shortness of breath 85 yo woman admitted to Dr Maguire's sv[facility] on 09/23/21 with shortness of breath and gen malaise and weakness. Denies cp or palp or syncope or focal weakness or swelling. Has chronic, intermittent abd discomfort and dyspepsia and some nausea. Denies vomiting or diarrhea. Denies fever or chills Review of Systems-Cardiology Review of Systems Constitutional: As described under HPI Eyes: No vision change Ears/Nose/Throat: No ear discharge, No nasal drainage, No recent hearing loss, No ulcerations Respiratory: As described under HPI Cardiovascular: As described under HPI Gastrointestinal: As described under HPI Genitourinary: No dysuria, No hematuria, No urine frequency changes Musculoskeletal: back pain (chronic), joint pain (chronic) Skin: No rash, No ulcerations Psychiatric/Neurological: No seizure, No focal weakness, No syncope [id number] Hx Patient Social History Marrital Status: single Employed/Student: retired Smoking Status: Unknown if Ever Smoked Former smoker/When Quit: Feb 03, 2013 2nd Hand Smoke Exposure: No Have you traveled recently?: No Alcohol Use?: No Immunizations Up To Date Tetanus Booster (TDap): Unknown Date of Pneumonia Vaccine: Sep 05, 2014 Date of Influenza Vaccine: Aug 23, 2021 Past Medical History PMH As described under Assessment. Family Medical History Family Medical History: She reports fam history of [place] and heart disease and hypertension and stroke, but is unable to provide details Family History: Cancer 09 SISTER Cancer of colon Cataract 03 MOTHER, Onset:Unknown Family history: Allergy 03 FATHER, Onset:Unknown 03 MOTHER, Onset:Unknown Family history: Arthritis 03 FATHER, Onset:Unknown 03 MOTHER, Onset:Unknown 09 SISTER, Onset:Unknown Family history: Cardiovascular disease 03 FATHER, Onset:Unknown 03 MOTHER, Onset:Unknown 09 BROTHER, Onset:Unknown 09 SISTER, Onset:Unknown Family history: Diabetes mellitus 03 MOTHER, Onset:Unknown Family history: Gastrointestinal disease 03 FATHER, Onset:Unknown Family history: Hypertension 03 MOTHER, Onset:Unknown Family history: Osteoporosis 03 MOTHER, Onset:Unknown Hearing loss 03 FATHER, Onset:Unknown Heart disease 03 FATHER, Onset:Unknown 03 MOTHER, Onset:Unknown 09 BROTHER, Onset:Unknown Hypercholesterolemia 03 MOTHER, Onset:Unknown Malignant neoplasm of lung 09 SISTER, Onset:Unknown Myocardial infarction 09 BROTHER, Onset:Unknown Parkinson's disease Stroke 03 FATHER, Onset:Unknown Thyroid disease No Family History of: Abdominal aortic aneurysm Coffee's disease Alcoholism Aphasia Chest pain Congenital heart disease Congestive heart failure Cystic fibrosis Dementia Dysphagia Family history: Alzheimer's disease Family history: Asthma Family history: Breast disease Family history: Coronary thrombosis Family history: Glaucoma Family history: Thyroid disorder Headache Hereditary disease History of - anemia History of - disorder History of - respiratory disease History of drug abuse Human immunodeficiency virus (HIV) seropositivity Infertile Kidney disease Prostate cancer Psychotic disorder Seizure disorder Tuberculosis Visual impairment Allergies and Home Medications Allergies Coded Allergies: Sulfa (Sulfonamide Antibiotics) (Verified Allergy, Unknown, 04/16/19) diphenhydramine HCl (Verified Allergy, Unknown, 04/16/19) hydrochlorothiazide (Unverified Allergy, Unknown, 04/16/19) varenicline tartrate (Verified Allergy, Unknown, 04/16/19) Patient Home Medication List Home Medication List Reviewed: Yes Acetaminophen (Acetaminophen) 325 Mg Tablet, 650 MG PO Q4H PRN for PAIN-MILD, (Reported) Entered as Reported by: LLOYD CUEVAS on 04/01/18 0904 Albuterol Sulfate (Proair Hfa) 8.5 Gm Hfa.aer.ad, 2 PUFF IH Q6H PRN for SHORTNESS OF BREATH, (Reported) Entered as Reported by: JOSEE VELZAQUEZ on 05/14/16 1655 Apixaban (Eliquis) 2.5 Mg Tablet, 2.5 MG PO BID, (Reported) Entered as Reported by: PATSY RODRIGUEZ on 06/19/20 0947 Aspirin (Aspirin) 81 Mg Tab.chew, 81 MG PO Q48H, (Reported) Entered as Reported by: PATSY RODRIGUEZ on 06/19/20 0947 Atorvastatin Calcium (Lipitor) 40 Mg Tablet, 40 MG PO DAILY, (Reported) Entered as Reported by: HENRRY CONNER on 02/06/17 1353 Benzocaine (Oral Analgesic) 9 Gm Gel..gram., 1 APPLIC MM QID PRN for PAIN-MILD (1-4), (Reported) Entered as Reported by: PATSY RODRIGUEZ on 06/19/20 1001 Budesonide/Formoterol Fumarate (Symbicort 160-4.5 Mcg Inhaler) 10.2 Gm Hfa.aer. ad, 2 PUFF IH BID, (Reported) Entered as Reported by: JOSEE VELAZQUEZ on 05/14/16 165 Bupropion HCl (Bupropion Xl) 300 Mg Tab.er.24h, 300 MG PO HS, (Reported) Entered as Reported by: JOSEE VELAZQUEZ on 05/14/161654 Cefdinir (Cefdinir) 300 Mg Capsule, 300 MG PO BID Prescribed by: JUAREZ CLAY on 09/06/211914 Cyclobenzaprine HCl (Cyclobenzaprine HCl) 5 Mg Tablet, 5 MG PO TID PRN for SPASMS Prescribed by: JUAREZ CLAY on 09/06/211911 Diltiazem HCl (Cardizem Cd) 300 Mg Cap.er.24h, 300 MG PO DAILY, (Reported) Entered as Reported by: PATSY RODRIGUEZ on 06/19/20 0942 Docusate Sodium (Colace) 100 Mg Capsule, 100 MG PO DAILY Prescribed by: JUAREZ CLAY on 09/06/211911 Ferrous Sulfate (Ferrous Sulfate) 325 Mg Tablet.dr, 325 MG PO DAILY, (Reported) Entered as Reported by: BOBBI TURNER on 06/20/20 1303 Furosemide (Furosemide) 20 Mg Tablet, 20 MG PO Q48H, (Reported) Entered as Reported by: JOSEE VELAZQUEZ on 05/14/16 165 Gabapentin (Gabapentin) 400 Mg Capsule, 400 MG PO TID, (Reported) Entered as Reported by: JOSEE VELAZQUEZ on 05/14/16 165 Guaifenesin/Dextromethorphan (Robitussin Cough-Chest Dm Liq) 237 Ml Liquid, 5 ML PO Q4H PRN for COUGH, (Reported) Entered as Reported by: DAVID FIGUEROA on 04/17/19 0850 Hydrocodone/Acetaminophen (Hydrocodone-Acetamin 7.5-325) 1 Each Tablet, 1 EACH PO Q4H Prescribed by: LES ARREGUIN on 06/23/20 1101 Hydrocodone/Acetaminophen (Hydrocodone-Acetamin 5-325 mg) 1 Each Tablet, 1 TAB PO Q4H PRN for PAIN-MODERATE (5-7) Prescribed by: JUAREZ CLAY on 09/06/21 191 Lorazepam (Ativan) 0.5 Mg Tablet, 0.25 MG PO BID, (Reported) Entered as Reported by: BOBBI TURNER on 06/20/20 1303 Mag Hydrox/Aluminum Hyd/Simeth (Maalox Advanced Suspension) 355 Ml Oral.susp, 30 ML PO Q4H PRN for INDIGESTION, (Reported) Entered as Reported by: DAVID FIGUEROA on 04/17/19 0850 Metoprolol Succinate (Metoprolol Succinate) 25 Mg Tab.er.24h, 25 MG PO DAILY, (Reported) Entered as Reported by: PATSY RODRIGUEZ on 06/19/20 0947 Mirabegron (Myrbetriq) 25 Mg Tab.er.24h, 25 MG PO DAILY, (Reported) Entered as Reported by: DAVID FIGUEROA on 04/17/19 0850 Oxybutynin Chloride (Oxybutynin Chloride ER) 10 Mg Tab.er.24, 10 MG PO DAILY, (Reported) Entered as Reported by: DAVID FIGUEROA on 04/17/19 0850 Pantoprazole Sodium (Pantoprazole Sodium) 40 Mg Tablet.dr, 40 MG PO DAILY, (Reported) Entered as Reported by: DAVID FIGUEROA on 04/17/19 0850 Potassium Chloride (Potassium Chloride) 20 Meq Tab.er.prt, 40 MEQ PO Q48H, (Reported) Entered as Reported by: JOSEE VELAZQUEZ on 05/14/16 1655 Propylene Glycol (Systane Complete) 1.5 Ml Drops, 1 DROP OU TID, (Reported) Entered as Reported by: PATSY RODRIGUEZ on 06/19/20 0954 Sertraline HCl (Zoloft) 100 Mg Tablet, 100 MG PO DAILY, (Reported) Entered as Reported by: PATSY RODRIGUEZ on 06/19/20 0938 Tamsulosin HCl (Flomax) 0.4 Mg Cap, 0.4 MG PO DAILY 30MIN P MEAL, (Reported) Entered as Reported by: DAVID FIGUEROA on 1/10/18 1051 Tramadol HCl (Tramadol HCl) 50 Mg Tablet, 50 MG PO TID, (Reported) Entered as Reported by: LLOYD CUEVAS on 04/01/18 0925 Trazodone HCl (Trazodone HCl) 50 Mg Tablet, 25 MG PO HS, (Reported) Entered as Reported by: LLOYD CUEVAS on 04/01/18 0923 [Flavoxate 100MG] , 100 MG PO TID PRN for BLADDER SPASMS, (Reported) Entered as Reported by: DAVID FIGUEROA on 04/17/19 0850 Physical Exam-Cardiology Physical Exam Vital Signs/I&O 09/24/21 09/24/21 09/24/21 09/24/21 04:00 04:06 07:00 07:36 Temp 36.2 Pulse 84 91 85 Resp 18 22 B/P (MAP) 123/100 (108) Pulse Ox 91 95 O2 Delivery NIV Bilevel NIV Bilevel O2 Flow Rate 45.00 45.00 09/24/21 09/24/21 09/24/21 09/24/21 07:49 09:58 12:00 12:50 Temp 36.7 37.1 Pulse 86 95 96 116 Resp 20 27 24 B/P (MAP) 131/70 (90) 105/58 (74) Pulse Ox 94 93 94 O2 Delivery NIV Bilevel NIV Bilevel O2 Flow Rate 45.00 30.00 45.00 09/24/21 00:00 Intake Total 1495 ml Output Total 2300 ml Balance -805 ml Capillary Refill : Less Than 3 Seconds Constitutional: AAO x 3, well-developed, well-nourished, other (appears anxious (reports chronic anxiety)) HEENT: PERRL, hard of hearing; No xanthelasmas are seen Neck: carotid pulses are 2 + bilaterally Respiratory: No accessory muscle use; other (fair to good air entry, diminished the bases, basal coarse and fine crackles) Cardiovascular: irregularly irregular, S1 and S2, systolic murmur (soft CELESTINO at card base) Gastrointestinal: tender (mild epigastric tenderness), soft, guarding; No rebound; audible bowel sounds Extremities: No clubbing, No cyanosis, No significant edema Neurologic/Psychiatric: other (moves all limbs equally) Skin: No rash on exposed areas, No ulcerations on exposed areas Data Review Labs Laboratory Tests 09/24/21 04:58: White Blood Count 5.6, Red Blood Count 3.69L, Hemoglobin 8.8L, Hematocrit 30L, Mean Corpuscular Volume 80, Mean Corpuscular Hemoglobin 24L, Mean Corpuscular Hemoglobin Concent 30L, Red Cell Distribution Width 17.9H, Platelet Count 327, Mean Platelet Volume 10.1, Immature Granulocyte % (Auto) 1, Neutrophils (%) (Auto) 90H, Lymphocytes (%) (Auto) 9L, Monocytes (%) (Auto) 1, Eosinophils (%) (Auto) 0, Basophils (%) (Auto) 0, Neutrophils # (Auto) 5.0, Lymphocytes # (Auto) 0.5L, Monocytes # (Auto) 0.0, Eosinophils # (Auto) 0.0, Basophils # (Auto) 0.0, Immature Granulocyte # (Auto) 0.0, Sodium Level 134L, Potassium Level 3.7, Chloride Level 102, Carbon Dioxide Level 20L, Anion Gap 12, Blood Urea Nitrogen 14, Creatinine 0.71, Estimat Glomerular Filtration Rate 79, BUN/Creatinine Ratio 20, Glucose Level 187H, Calcium Level 8.4L, Corrected Calcium 8.9, Total Bilirubin 0.4, Aspartate Amino Transf (AST/SGOT) 10, Alanine Aminotransferase (ALT/SGPT) 9, Alkaline Phosphatase 66, Total Protein 7.6, Albumin 3.4 Microbiology 09/23/21 Blood Culture - Preliminary, Resulted Gram Positive Cocci Laboratory Tests 09/23/21 10:48 09/24/21 04:58 A/P-Cardiology Assessment/Admission Diagnosis Ac diastolic CHF - Echo on 06/20/20: LVEF 50-55%, biatrial enlargement, mild to mod TR, pulm htn (PASP approx 60-65 mmHg) Chronic, permanent atrial fib, first documented on an ECG of 09/27/17 at [facility], rate is currently uncontrolled - Eliquis for stroke prophylaxis CAD - s/p [address] Maza at [facility] in -2014: GREY to LAD, SVG to OM1 and SVG to PDA. Cardiac cath of Oct 15, 2017 (done following an MPI that showed apical ischemia) showed widely patent aortocoronary graft to the distal RCA, widely patent aortocoronary graft to OM system, widely patent left internal mammary artery graft to the distal LAD, normal to hyperdynamic LV systolic function with an ejection fraction of approx 70%, normal LVEDP, no evidence of thoracic aortic aneurysm or dissection, mod-sized infrarenal abdominal aortic aneurysm, mild prox stenosis of the left renal artery - MPI on 06/21/20: mild ant-lat ischemia (technically difficult study due to significant patient motion) normal LVEF PUD - H/O GI bleed with hypovolemic shock during hospitalization of April 16, 2019. GI bleed due to a bleeding prepyloric ulcer (managed by Dr. Lemus) - no recurrence Carotid arterial disease - s/p R CEA with Dr Valenzuela at [facility] in Dec 2017 - s/p L carotid PCI at [facility] in January 2018 (Dr Valenzuela). - Mild carotid arterial disease on carotid u/s of Nov 2019 H/o old lacunar infarction, including R internal capsule (based on w/u of Dec 2017 at [facility]) S/P right hip replacement PAD: - Peripheral angiogram with runoffs of March 2018: Moderate-sized, infrarenal, saccular abdominal aortic aneurysm. A 70% ostial and proximal stenoses of the renal arteries on both sides. 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 Proximal occlusion of the right superficial femoral artery which reconstitutes via collaterals in its distal portion. There is a 2- vessel runoff in the leg. Multiple up to 75% stenoses in the mid and distal portions of the left superficial femoral artery. For these findings she was refe rred to [place] [facility]. - Arterial Doppler of both legs on 06/22/20: Bilateral lower extremity peripheral vascular disease. There are monophasic waveforms throughout the right lower extreme arterial system which can be seen with more proximal disease. There is a probable stenosis in the mid left SFA where there is some velocity elevation COPD Tobaccoism, quit 2009 HTN H/o hypothyroidism that is followed by her fam phy S/P suprapubic catheter placement per Dr. James on 11-26-2017 S/P umbilical hernia repair on 06-23-[address] Arreguin Discussion and Recomendations * Complex management due to multiple comorbidities (see above) on which anxiety is superimposed * Treat CHF with diuretic * Add CCB for vent rate control * Continue OAC, but monitor H/H closely. If H/H dropping, then hold OAC and carry out GI w/u * Add PPI * Monitor labs closely CHELLE GOETZ MD FACP [facility] CCDS Sep 24, 2021 15:17
[2021-09-24] MEDS: MELATONIN 3 MG TABLET PO PRN (20:04)
[2021-09-24] MEDS: HYDROcodone/APAP 5 MG/325 MG (LORTAB) TAB PO PRN (23:50)
[2021-09-25] VITALS: BP 123/65
[2021-09-25] MEDS: RT-ALBUTEROL/IPRATROPIUM 3 ML (DUONEB) VIAL INH SCH ×4 (02:43→20:41)
[2021-09-25 04:00] VITALS: BP 124/99
[2021-09-25] MEDS: morphine INJ 4 MG/ML 1 ML (VIAL/SYRINGE) IV PRN ×4 (04:34→20:32)
[2021-09-25] MEDS: methylPREDNISolone 40 MG/ML (Solu-MEDROL) VIAL IV SCH ×3 (05:51→20:32)
[2021-09-25] MEDS: CEFEPIME INJECTION 1,000 MG in WATER (STERILE) FOR INJECTION 10 ML IV SCH ×3 (05:51→22:27)
[2021-09-25 06:16] LABS: BASOPHILS % (AUTO) 0 % (0-10); EOSINOPHILS % (AUTO) 0 % (0-10); HEMATOCRIT 28 % (35-52); HEMOGLOBIN 8.4 g/dL (11.5-16.0); LYMPHOCYTES # (AUTO) 0.7 10^3/uL (1.0-4.0); LYMPHOCYTES % (AUTO) 6 % (12-44); MEAN CORPUSCULAR HEMOGLOBIN 24 pg (25-34); MEAN CORPUSCULAR HGB CONC 30 g/dL (32-36); MEAN CORPUSCULAR VOLUME 80 fL (80-99); MEAN PLATELET VOLUME 10.1 fL (9.0-12.2); MONOCYTES # (AUTO) 0.3 10^3/uL (0.0-1.0); MONOCYTES % (AUTO) 3 % (0-12); NEUTROPHILS # (AUTO) 10.1 10^3/uL (1.8-7.8); NEUTROPHILS % (AUTO) 90 % (42-75); PLATELET COUNT 332 10^3/uL (130-400); WHITE BLOOD COUNT 11.3 10^3/uL (4.3-11.0)
[2021-09-25 06:46] LABS: ALBUMIN 3.2 GM/DL (3.2-4.5); BILIRUBIN,TOTAL 0.3 MG/DL (0.1-1.0); CALCIUM 8.4 MG/DL (8.5-10.1); CREATININE SERUM 0.72 MG/DL (0.60-1.30); POTASSIUM 3.2 MMOL/L (3.6-5.0); TOTAL PROTEIN 7.4 GM/DL (6.4-8.2)
[2021-09-25] MEDS ORDERED: KCL 20 MEQ TAB (K-DUR) PO ONE ×2 (08:45→09:30)
[2021-09-25 08:47] VITALS: BP 131/73
[2021-09-25] MEDS: SENNA W/DOCUSATE (SENOKOT S) TABLET PO SCH ×2 (08:52→20:32)
[2021-09-25] MEDS: APIXABAN 5 MG (ELIQUIS) TABLET PO SCH ×2 (08:52→20:32)
[2021-09-25] MEDS: AZITHROMYCIN INJECTION 250 MG in NS (IVPB) 250 ML IV SCH (08:53)
--- NOTE | 2021-09-25 09:16 | Progress Note - Cardiology ---
Cardiology SOAP Progress Note Objective: I&O/Vital Signs 09/25/21 09/26/21 09/26/21 09/26/21 20:41 00:17 01:00 03:55 Temp 36.2 36.6 Pulse 110 88 107 Resp 20 18 B/P (MAP) 119/71 (87) 114/40 (64) Pulse Ox 94 90 94 O2 Delivery High Flow N/C High Flow N/C High Flow N/C O2 Flow Rate 6.00 6.00 6.00 09/26/21 07:00 Pulse 92 09/26/21 00:00 Intake Total 410 ml Output Total 1775 ml Balance -1365 ml Weight (Pounds): 165 Weight (Ounces): 7.0 Weight (Calculated Kilograms): 74.463081 Constitutional: AAO x 3, well-developed, well-nourished, other (appears anxious (reports chronic anxiety)) Respiratory: No accessory muscle use; other (fair to good air entry, diminished the bases, basal coarse and fine crackles) Cardiovascular: irregularly irregular, S1 and S2, systolic murmur (soft CELESTINO at card base) Gastrointestional: tender (mild epigastric tenderness), soft, guarding; No rebound; audible bowel sounds Extremities: No clubbing, No cyanosis, No significant edema Neurologic/Psychiatric: other (moves all limbs equally) Skin: No rash on exposed areas, No ulcerations on exposed areas Results/Procedures: Labs Laboratory Tests 09/26/21 05:09: White Blood Count 13.0H, Red Blood Count 3.64L, Hemoglobin 8.7L, Hematocrit 29L, Mean Corpuscular Volume 80, Mean Corpuscular Hemoglobin 24L, Mean Corpuscular Hemoglobin Concent 30L, Red Cell Distribution Width 17.8H, Platelet Count 342, Mean Platelet Volume 9.7, Immature Granulocyte % (Auto) 1, Neutrophils (%) (Auto) 91H, Lymphocytes (%) (Auto) 5L, Monocytes (%) (Auto) 3, Eosinophils (%) (Auto) 0, Basophils (%) (Auto) 0, Neutrophils # (Auto) 11.9H, Lymphocytes # (Auto) 0.7L, Monocytes # (Auto) 0.4, Eosinophils # (Auto) 0.0, Basophils # (Auto) 0.0, Immature Granulocyte # (Auto) 0.1, Sodium Level 135, Potassium Level 3.8, Chloride Level 99, Carbon Dioxide Level 24, Anion Gap 12, Blood Urea Nitrogen 19H, Creatinine 0.75, Estimat Glomerular Filtration Rate 74, BUN/Creatinine Ratio 25, Glucose Level 279H, Calcium Level 8.4L, Corrected Calcium 9.0, Total Bilirubin 0.4, Aspartate Amino Transf (AST/SGOT) 17, Alanine Aminotransferase (ALT/SGPT) 15, Alkaline Phosphatase 55, Total Protein 7.1, Albumin 3.2 Microbiology 09/23/21 Blood Culture - Preliminary, Resulted No growth 09/23/21 Urine Culture - Preliminary, Resulted Proteus mirabilis A/P: Assessment: Ac diastolic CHF - Echo on 06/20/20: LVEF 50-55%, biatrial enlargement, mild to mod TR, pulm htn (PASP approx 60-65 mmHg) UTI - management per medical services Hypokalemia - replace; likely secondary to diuretics Chronic, permanent atrial fib, first documented on an ECG of 09/27/17 at [facility], rate is currently uncontrolled - Eliquis for stroke prophylaxis CAD - s/p [address] Maza at [facility] in : GREY to LAD, SVG to OM1 and SVG to PDA. Cardiac cath of Oct 15, 2017 (done following an MPI that showed apical ischemia) showed widely patent aortocoronary graft to the distal RCA, widely patent aortocoronary graft to OM system, widely patent left internal mammary artery graft to the distal LAD, normal to hyperdynamic LV systolic function with an ejection fraction of approx 70%, normal LVEDP, no evidence of thoracic aortic aneurysm or dissection, mod-sized infrarenal abdominal aortic aneurysm, mild prox stenosis of the left renal artery - MPI on 06/21/20: mild ant-lat ischemia (technically difficult study due to significant patient motion) normal LVEF PUD - H/O GI bleed with hypovolemic shock during hospitalization of April 16, 2019. GI bleed due to a bleeding prepyloric ulcer (managed by Dr. Lemus) - no recurrence Carotid arterial disease - s/p R CEA with Dr Valenzuela at [facility] in Dec 2017 - s/p L carotid PCI at [facility] in January 2018 (Dr Valenzuela). - Mild carotid arterial disease on carotid u/s of Nov 2019 H/o old lacunar infarction, including R internal capsule (based on w/u of Dec 2017 at [facility]) S/P right hip replacement PAD: - Peripheral angiogram with runoffs of March 2018: Moderate-sized, infrarenal, saccular abdominal aortic aneurysm. A 70% ostial and proximal stenoses of the renal arteries on both sides. 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 Proximal occlusion of the right superficial femoral artery which reconstitutes via collaterals in its distal portion. There is a 2- vessel runoff in the leg. Multiple up to 75% stenoses in the mid and distal portions of the left superficial femoral artery. For these findings she was referred to [place] [facility]. - Arterial Doppler of both legs on 06/22/20: Bilateral lower extremity peripheral vascular disease. There are monophasic waveforms throughout the right lower extreme arterial system which can be seen with more proximal disease. There is a probable stenosis in the mid left SFA where there is some velocity elevation COPD Tobaccoism, quit 2009 HTN H/o hypothyroidism that is followed by her fam phy S/P suprapubic catheter placement per Dr. James on 11-26-2017 S/P umbilical hernia repair on 06-23-[address] Arreguin Plan: * Complex management due to multiple comorbidities (see above) on which anxiety is superimposed * Treat CHF with diuretic * Add CCB for vent rate control * Continue OAC, but monitor H/H closely. If H/H dropping, then hold OAC and carry out GI w/u * Add PPI * Monitor labs closely SATHISH ABAD Sep 25, 2021 09:15
[2021-09-25] MEDS ORDERED: LD5O35 TP (09:36)
[2021-09-25] MEDS ORDERED: CYCL5TAB PO (09:36)
[2021-09-25] MEDS ORDERED: [UNRECOGNIZED DRUG - CODE] PO (09:36)
[2021-09-25] MEDS ORDERED: FLAVOXATE PO (09:36)
[2021-09-25] MEDS ORDERED: ATOR40TA70 PO (09:36)
[2021-09-25] MEDS ORDERED: TRAM50TA3 PO (09:36)
[2021-09-25] MEDS ORDERED: BUPR150T24 PO (09:36)
[2021-09-25] MEDS ORDERED: NYST15PO2 TOP (09:36)
[2021-09-25] MEDS ORDERED: DILT300C26 PO (09:36)
[2021-09-25] MEDS ORDERED: LACT1CAP87 PO (09:39)
[2021-09-25] MEDS ORDERED: ALB0.5V INH (09:39)
[2021-09-25] MEDS: DICLOFENAC 1% GEL 100 GM (VOLTAREN) TUBE TOP SCH ×4 (10:08→20:36)
[2021-09-25] MEDS: FUROSEMIDE 40 MG/4 ML INJ (LASIX) IVP SCH (10:10)
[2021-09-25 12:50] VITALS: BP 128/64
[2021-09-25] MEDS: HYDROcodone/APAP 5 MG/325 MG (LORTAB) TAB PO PRN ×2 (12:55→22:32)
[2021-09-25] MEDS: ALPRAZolam 0.25 MG (XANAX) TAB PO PRN ×2 (12:55→20:32)
[2021-09-25 16:00] VITALS: BP 127/67
--- NOTE | 2021-09-25 16:41 | Progress Note ---
Subjective Subjective/Events-last exam Patient states that she is feeling better this AM. Currently on HFNC. Tolerating PO diet. Previously able to help with transfers to wheelchair. Review of Systems Pulmonary: Dyspnea, Cough Cardiovascular: No: Chest Pain, Palpitations, Edema Gastrointestinal: No: Nausea, Vomiting, Abdominal Pain, Diarrhea, Constipation Genitourinary: No Dysuria; Frequency Neurological: Weakness, Incoordination Focused Exam Lactate Level 09/23/21 10:48: Lactic Acid Level 0.92 Objective Exam Last Set of Vital Signs Vital Signs Date Time Temp Pulse Resp B/P (MAP) Pulse Ox O2 Delivery O2 Flow Rate FiO2 09/25/21 13:51 92 High Flow N/C 6.00 09/25/21 13:00 92 09/25/21 12:50 36.6 21 128/64 (85) 09/24/21 12:00 45 Capillary Refill : Less Than 3 Seconds I&O Intake and Output 09/25/21 00:00 Intake Total 1780 ml Output Total 3075 ml Balance -1295 ml Intake Oral 1760 ml IV Total 20 ml Output Urine Total 3075 ml General: Alert, Oriented X3, No Acute Distress Lungs: Clear to Auscultation, Normal Air Movement, Other (basilar wheezing, mild increased work of breathing with minimial exertion) Heart: Regular Rate, No Murmurs Abdomen: Normal Bowel Sounds, Soft, No Tenderness Extremities: No Tenderness/Swelling Neuro: Normal Speech Results/Procedures Lab Laboratory Tests 09/25/21 05:33: White Blood Count 11.3H, Red Blood Count 3.50L, Hemoglobin 8.4L, Hematocrit 28L, Mean Corpuscular Volume 80, Mean Corpuscular Hemoglobin 24L, Mean Corpuscular Hemoglobin Concent 30L, Red Cell Distribution Width 17.9H, Platelet Count 332, Mean Platelet Volume 10.1, Immature Granulocyte % (Auto) 0, Neutrophils (%) (Auto) 90H, Lymphocytes (%) (Auto) 6L, Monocytes (%) (Auto) 3, Eosinophils (%) (Auto) 0, Basophils (%) (Auto) 0, Neutrophils # (Auto) 10.1H, Lymphocytes # (Auto) 0.7L, Monocytes # (Auto) 0.3, Eosinophils # (Auto) 0.0, Basophils # (Auto) 0.0, Immature Granulocyte # (Auto) 0.1, Sodium Level 137, Potassium Level 3.2L, Chloride Level 102, Carbon Dioxide Level 22, Anion Gap 13, Blood Urea Nitrogen 18, Creatinine 0.72, Estimat Glomerular Filtration Rate 77, BUN/Creatinine Ratio 25, Glucose Level 250H, Calcium Level 8.4L, Corrected Calc ium 9.0, Magnesium Level 1.8, Total Bilirubin 0.3, Aspartate Amino Transf (AST/SGOT) 13, Alanine Aminotransferase (ALT/SGPT) 10, Alkaline Phosphatase 57, Total Protein 7.4, Albumin 3.2 Microbiology 09/23/21 Urine Culture - Preliminary, Resulted Proteus mirabilis 09/23/21 Blood Culture - Preliminary, Resulted Gram Positive Cocci Assessment/Plan Assessment/Plan (1) Acute and chronic respiratory failure with hypoxia Status: Acute Assessment & Plan: 09/25: Titrated to HFNC, will continue to titrate as tolerate d, continue steroids and antibiotics (2) COPD exacerbation Status: Acute (3) Normocytic anemia Status: Acute Assessment & Plan: 09/25: Will get iron panel, patient on OAC, will continue to monitor (4) Urinary tract infection due to Proteus Status: Acute Assessment & Plan: - C/s pending, continue cefepime (5) Atrial fibrillation Status: Chronic Assessment & Plan: 09/25: Patient on OAC, rate controlled, Cardiology consulted, appreciate recommendations (6) Hypokalemia Status: Acute Assessment & Plan: 09/25: Replaced, repeat level in AM (7) DVT prophylaxis Status: Acute Assessment & Plan: - OAC (8) Physical deconditioning Status: Acute Assessment & Plan: - PT/OT ASYA BURLESON MD Sep 25, 2021 16:41
--- NOTE | 2021-09-25 17:05 | Progress Note - Cardiology ---
Cardiology SOAP Progress Note Subjective: Somewhat better today No cp or palp or syncope Less short of breath Gen malaise and weakness Objective: I&O/Vital Signs 09/25/21 09/25/21 09/25/21 09/25/21 07:00 07:12 08:00 08:47 Temp 36.4 Pulse 84 95 B/P (MAP) 131/73 (92) Pulse Ox 94 94 O2 Delivery High Flow N/C High Flow N/C High Flow N/C O2 Flow Rate 7.00 6.00 6.00 09/25/21 09/25/21 09/25/21 09/25/21 12:50 13:00 13:09 13:51 Temp 36.6 Pulse 87 92 Resp 21 B/P (MAP) 128/64 (85) Pulse Ox 94 92 O2 Delivery High Flow N/C High Flow N/C High Flow N/C O2 Flow Rate 6.00 6.00 6.00 09/25/21 16:00 Pulse 89 Resp 19 B/P (MAP) 127/67 (87) Pulse Ox 95 O2 Delivery High Flow N/C O2 Flow Rate 6.00 09/25/21 00:00 Intake Total 1380 ml Output Total 1550 ml Balance -170 ml Weight (Pounds): 165 Weight (Ounces): 7.0 Weight (Calculated Kilograms): 74.915447 Constitutional: AAO x 3, well-developed, well-nourished, other (appears anxious (reports chronic anxiety)) Respiratory: No accessory muscle use; other (fair to good air entry, diminished the bases, basal coarse and fine crackles) Cardiovascular: irregularly irregular, S1 and S2, systolic murmur (soft CELESTINO at card base) Gastrointestional: tender (mild epigastric tenderness), soft, guarding; No rebound; audible bowel sounds Extremities: No clubbing, No cyanosis, No significant edema Neurologic/Psychiatric: other (moves all limbs equally) Skin: No rash on exposed areas, No ulcerations on exposed areas Results/Procedures: Labs Laboratory Tests 09/25/21 05:33: White Blood Count 11.3H, Red Blood Count 3.50L, Hemoglobin 8.4L, Hematocrit 28L, Mean Corpuscular Volume 80, Mean Corpuscular Hemoglobin 24L, Mean Corpuscular Hemoglobin Concent 30L, Red Cell Distribution Width 17.9H, Platelet Count 332, Mean Platelet Volume 10.1, Immature Granulocyte % (Auto) 0, Neutrophils (%) (Auto) 90H, Lymphocytes (%) (Auto) 6L, Monocytes (%) (Auto) 3, Eosinophils (%) (Auto) 0, Basophils (%) (Auto) 0, Neutrophils # (Auto) 10.1H, Lymphocytes # (Auto) 0.7L, Monocytes # (Auto) 0.3, Eosinophils # (Auto) 0.0, Basophils # (Aut o) 0.0, Immature Granulocyte # (Auto) 0.1, Sodium Level 137, Potassium Level 3.2L, Chloride Level 102, Carbon Dioxide Level 22, Anion Gap 13, Blood Urea Nitrogen 18, Creatinine 0.72, Estimat Glomerular Filtration Rate 77, BUN/Creatinine Ratio 25, Glucose Level 250H, Calcium Level 8.4L, Corrected Calcium 9.0, Magnesium Level 1.8, Total Bilirubin 0.3, Aspartate Amino Transf (AST/SGOT) 13, Alanine Aminotransferase (ALT/SGPT) 10, Alkaline Phosphatase 57, Total Protein 7.4, Albumin 3.2 Microbiology 09/23/21 Blood Culture - Preliminary, Resulted No growth 09/23/21 Urine Culture - Preliminary, Resulted Proteus mirabilis Laboratory Tests 09/24/21 04:58 09/25/21 05:33 A/P: Assessment: Ac diastolic CHF - Echo on 06/20/20: LVEF 50-55%, biatrial enlargement, mild to mod TR, pulm htn (PASP approx 60-65 mmHg) UTI - management per medical services Hypokalemia - replace; likely secondary to diuretics Chronic, permanent atrial fib, first documented on an ECG of 09/27/17 at [facility], rate is currently uncontrolled - Eliquis for stroke prophylaxis CAD - s/p [address] Maza at [facility] in : GREY to LAD, SVG to OM1 and SVG to PDA. Cardiac cath of Oct 15, 2017 (done following an MPI that showed apical ischemia) showed widely patent aortocoronary graft to the distal RCA, widely patent aortocoronary graft to OM system, widely patent left internal mammary artery graft to the distal LAD, normal to hyperdynamic LV systolic function with an ejection fraction of approx 70%, normal LVEDP, no evidence of thoracic aortic aneurysm or dissection, mod-sized infrarenal abdominal aortic aneurysm, mild prox stenosis of the left renal artery - MPI on 06/21/20: mild ant-lat ischemia (technically difficult study due to significant patient motion) normal LVEF PUD - H/O GI bleed with hypovolemic shock during hospitalization of April 16, 2019. GI bleed due to a bleeding prepyloric ulcer (managed by Dr. Lemus) - no recurrence Carotid arterial disease - s/p R CEA with Dr Valenzuela at [facility] in Dec 2017 - s/p L carotid PCI at [facility] in January 2018 (Dr Valenzuela). - Mild carotid arterial disease on carotid u/s of Nov 2019 H/o old lacunar infarction, including R internal capsule (based on w/u of Dec 2017 at [facility]) S/P right hip replacement PAD: - Peripheral angiogram with runoffs of March 2018: Moderate-sized, infrarenal, saccular abdominal aortic aneurysm. A 70% ostial and proximal stenoses of the renal arteries on both sides. 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 Proximal occlusion of the right superficial femoral artery which reconstitutes via collaterals in its distal portion. There is a 2-vessel runoff in the leg. Multiple up to 75% stenoses in the mid and distal portions of the left superficial femoral artery. For these findings she was referred to [place] [facility]. - Arterial Doppler of both legs on 06/22/20: Bilateral lower extremity peripheral vascular disease. There are monophasic waveforms throughout the right lower extreme arterial system which can be seen with more proximal disease. There is a probable stenosis in the mid left SFA where there is some velocity elevation COPD Tobaccoism, quit 2009 HTN H/o hypothyroidism that is followed by her fam phy S/P suprapubic catheter placement per Dr. James on 11-26-2017 S/P umbilical hernia repair on 06-23-[address] Arreguin Plan: * Complex management due to multiple comorbidities (see above) on which anxiety is superimposed * Continue diuretic, CCB, Xarelto * Replenish K * Monitor labs closely CHELLE GOETZ MD FACP [facility] CCDS Sep 25, 2021 17:05
[2021-09-25 19:51] VITALS: BP 125/72
[2021-09-25] MEDS: MELATONIN 3 MG TABLET PO PRN (22:32)
[2021-09-26] VITALS (8 sets, daily range): BP systolic 114–146; BP diastolic 40–85
[2021-09-26] MEDS: methylPREDNISolone 40 MG/ML (Solu-MEDROL) VIAL IV SCH ×2 (00:15→05:00)
[2021-09-26] MEDS: RT-ALBUTEROL/IPRATROPIUM 3 ML (DUONEB) VIAL INH SCH ×4 (02:15→20:22)
[2021-09-26] MEDS: morphine INJ 4 MG/ML 1 ML (VIAL/SYRINGE) IV PRN (03:43)
[2021-09-26] MEDS: CEFEPIME INJECTION 1,000 MG in WATER (STERILE) FOR INJECTION 10 ML IV SCH ×2 (05:00→13:50)
[2021-09-26 05:44] LABS: BASOPHILS % (AUTO) 0 % (0-10); EOSINOPHILS % (AUTO) 0 % (0-10); HEMATOCRIT 29 % (35-52); HEMOGLOBIN 8.7 g/dL (11.5-16.0); LYMPHOCYTES # (AUTO) 0.7 10^3/uL (1.0-4.0); LYMPHOCYTES % (AUTO) 5 % (12-44); MEAN CORPUSCULAR HEMOGLOBIN 24 pg (25-34); MEAN CORPUSCULAR HGB CONC 30 g/dL (32-36); MEAN CORPUSCULAR VOLUME 80 fL (80-99); MEAN PLATELET VOLUME 9.7 fL (9.0-12.2); MONOCYTES # (AUTO) 0.4 10^3/uL (0.0-1.0); MONOCYTES % (AUTO) 3 % (0-12); NEUTROPHILS # (AUTO) 11.9 10^3/uL (1.8-7.8); NEUTROPHILS % (AUTO) 91 % (42-75); PLATELET COUNT 342 10^3/uL (130-400)
[2021-09-26 06:32] LABS: ALBUMIN 3.2 GM/DL (3.2-4.5); POTASSIUM 3.8 MMOL/L (3.6-5.0)
[2021-09-26 06:33] LABS: CALCIUM 8.4 MG/DL (8.5-10.1)
[2021-09-26 06:34] LABS: TOTAL PROTEIN 7.1 GM/DL (6.4-8.2)
[2021-09-26 06:36] LABS: BILIRUBIN,TOTAL 0.4 MG/DL (0.1-1.0)
[2021-09-26 06:38] LABS: CREATININE SERUM 0.75 MG/DL (0.60-1.30)
[2021-09-26] MEDS: AZITHROMYCIN INJECTION 250 MG in NS (IVPB) 250 ML IV SCH (08:45)
[2021-09-26] MEDS: SENNA W/DOCUSATE (SENOKOT S) TABLET PO SCH ×2 (08:45→21:03)
[2021-09-26] MEDS: HYDROcodone/APAP 5 MG/325 MG (LORTAB) TAB PO PRN ×4 (08:45→23:45)
[2021-09-26] MEDS: DICLOFENAC 1% GEL 100 GM (VOLTAREN) TUBE TOP SCH ×4 (08:46→21:03)
[2021-09-26] MEDS: FUROSEMIDE 40 MG/4 ML INJ (LASIX) IVP SCH (08:46)
[2021-09-26] MEDS: APIXABAN 5 MG (ELIQUIS) TABLET PO SCH ×2 (08:46→21:03)
--- NOTE | 2021-09-26 09:17 | Progress Note - Cardiology ---
Cardiology SOAP Progress Note Subjective: Sitting up in bed eating morning meal Feels SOB is unchanged from yesterday No c/o CP or palpitations Objective: I&O/Vital Signs Weight (Pounds): 165 Weight (Ounces): 7.0 Weight (Calculated Kilograms): 74.387403 Constitutional: AAO x 3, well-developed, well-nourished, other (appears anxious (reports chronic anxiety)) Respiratory: No accessory muscle use; other (fair to good air entry, diminished the bases, basal coarse and fine crackles) Cardiovascular: irregularly irregular, S1 and S2, systolic murmur (soft CELESTINO at card base) Gastrointestional: tender (mild epigastric tenderness), soft, guarding; No rebound; audible bowel sounds Extremities: No clubbing, No cyanosis, No significant edema Neurologic/Psychiatric: other (moves all limbs equally) Skin: No rash on exposed areas, No ulcerations on exposed areas Results/Procedures: Labs Microbiology 09/23/21 Blood Culture - Final, Complete No growth 09/23/21 Urine Culture - Final, Complete Proteus mirabilis A/P: Assessment: Ac diastolic CHF - Echo on 06/20/20: LVEF 50-55%, biatrial enlargement, mild to mod TR, pulm htn (PASP approx 60-65 mmHg) UTI - management per medical services Hypokalemia - replace; likely secondary to diuretics Chronic, permanent atrial fib, first documented on an ECG of 09/27/17 at [facility], rate is currently uncontrolled - Eliquis for stroke prophylaxis CAD - s/p [address] Maza at [facility] in : GREY to LAD, SVG to OM1 and SVG to PDA. Cardiac cath of Oct 15, 2017 (done following an MPI that showed apical ischemia) showed widely patent aortocoronary graft to the distal RCA, widely patent aortocoronary graft to OM system, widely patent left internal mammary artery graft to the distal LAD, normal to hyperdynamic LV systolic function with an ejection fraction of approx 70%, normal LVEDP, no evidence of thoracic aortic aneurysm or dissection, mod-sized infrarenal abdominal aortic aneurysm, mild prox stenosis of the left renal artery - MPI on 06/21/20: mild ant-lat ischemia (technically difficult study due to significant patient motion) normal LVEF PUD - H/O GI bleed with hypovolemic shock during hospitalization of April 16, 2019. GI bleed due to a bleeding prepyloric ulcer (managed by Dr. Lemus) - no recurrence Carotid arterial disease - s/p R CEA with Dr Valenzuela at [facility] in Dec 2017 - s/p L carotid PCI at [facility] in January 2018 (Dr Valenzuela). - Mild carotid arterial disease on carotid u/s of Nov 2019 H/o old lacunar infarction, including R internal capsule (based on w/u of Dec 2017 at [facility]) S/P right hip replacement PAD: - Peripheral angiogram with runoffs of March 2018: Moderate-sized, infrarenal, saccular abdominal aortic aneurysm. A 70% ostial and proximal stenoses of the renal arteries on both sides. 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 Proximal occlusion of the right superficial femoral artery which reconstitutes via collaterals in its distal portion. There is a 2- vessel runoff in the leg. Multiple up to 75% stenoses in the mid and distal portions of the left superficial femoral artery. For these findings she was referred to [place] [facility]. - Arterial Doppler of both legs on 06/22/20: Bilateral lower extremity peripheral vascular disease. There are monophasic waveforms throughout the right lower extreme arterial system which can be seen with more proximal disease. There is a probable stenosis in the mid left SFA where there is some velocity elevation COPD Tobaccoism, quit 2009 HTN H/o hypothyroidism that is followed by her fam phy S/P suprapubic catheter placement per Dr. James on 11-26-2017 S/P umbilical hernia repair on 06-23-[address] Arreguin Plan: * Complex management due to multiple comorbidities (see above) on which anxiety is superimposed * Continue diuretic, CCB, Xarelto * Change diuretics to oral starting tomorrow * Monitor labs closely * Replace electrolytes as indicated SATHISH ABAD Sep 26, 2021 09:17
--- NOTE | 2021-09-26 10:09 | Progress Note ---
Subjective Subjective/Events-last exam Patient is feeling better today. Tolerating PO diet. Ready to start PT. Patient previously living in independent living and utilizes at wheel chair Review of Systems General: Fatigue Pulmonary: Dyspnea, Cough Cardiovascular: No: Chest Pain, Palpitations, Edema Gastrointestinal: No: Nausea, Vomiting, Abdominal Pain, Diarrhea, Constipation Neurological: Weakness, Incoordination Focused Exam Lactate Level 09/23/21 10:48: Lactic Acid Level 0.92 Objective Exam Last Set of Vital Signs Vital Signs Date Time Temp Pulse Resp B/P (MAP) Pulse Ox O2 Delivery O2 Flow Rate FiO2 09/26/21 09:28 99 High Flow N/C 6.00 09/26/21 08:47 36.4 88 13 146/84 (104) 09/24/21 12:00 45 Capillary Refill : Less Than 3 Seconds I&O Intake and Output 09/26/21 00:00 Intake Total 872.5 ml Output Total 2075 ml Balance -1202.5 ml Intake Oral 610 ml IV Total 262.5 ml Output Urine Total 2075 ml General: Alert, Oriented X3, Mild Distress (with any activity) Lungs: Clear to Auscultation Heart: Regular Rate, No Murmurs Abdomen: Normal Bowel Sounds, Soft, No Tenderness, No Masses Extremities: No Edema, No Tenderness/Swelling Neuro: Normal Speech Psych/Mental Status: Mental Status NL, Mood NL Results/Procedures Lab Laboratory Tests 09/26/21 05:09: White Blood Count 13.0H, Red Blood Count 3.64L, Hemoglobin 8.7L, Hematocrit 29L, Mean Corpuscular Volume 80, Mean Corpuscular Hemoglobin 24L, Mean Corpuscular Hemoglobin Concent 30L, Red Cell Distribution Width 17.8H, Platelet Count 342, Mean Platelet Volume 9.7, Immature Granulocyte % (Auto) 1, Neutrophils (%) (Auto) 91H, Lymphocytes (%) (Auto) 5L, Monocytes (%) (Auto) 3, Eosinophils (%) (Auto) 0, Basophils (%) (Auto) 0, Neutrophils # (Auto) 11.9H, Lymphocytes # (Auto) 0.7L, Monocytes # (Auto) 0.4, Eosinophils # (Auto) 0.0, Basophils # (Auto) 0.0, Immature Granulocyte # (Auto) 0.1, Sodium Level 135, Potassium Level 3.8, Chloride Level 99, Carbon Dioxide Level 24, Anion Gap 12, Blood Urea Nitrogen 19H, Creatinine 0.75, Estimat Glomerular Filtration Rate 74, BUN/Creatinine Ratio 25, Glucose Level 279H, Calcium Level 8.4L, Corrected Calcium 9.0, Total Bilirubin 0.4, Aspartate Amino Transf (AST/SGOT) 17, Alanine Aminotransferase (ALT/SGPT) 15, Alkaline Phosphatase 55, Total Protein 7.1, Albumin 3.2 Microbiology 09/23/21 Blood Culture - Preliminary, Resulted No growth 09/23/21 Urine Culture - Final, Complete Proteus mirabilis Assessment/Plan Assessment/Plan (1) Acute and chronic respiratory failure with hypoxia Status: Acute Assessment & Plan: 09/25: Titrated to HFNC, will continue to titrate as tolerated, continue steroids and antibiotics 09/26: Titrated to 5L, which is baseline, continue steroids and antibiotics and plan for Dc to SNF (2) COPD exacerbation Status: Acute (3) Normocytic anemia Status: Acute Assessment & Plan: 09/25: Will get iron panel, patient on OAC, will continue to monitor 09/26: Hgb stable (4) Urinary tract infection due to Proteus Status: Acute Assessment & Plan: - C/s pending, continue cefepime 09/26: Sensitive to Rocephin, antibiotics adjusted (5) Atrial fibrillation Status: Chronic Assessment & Plan: 09/25: Patient on OAC, rate controlled, Cardiology consulted, appreciate recommendations (6) Hypokalemia Status: Resolved Assessment & Plan: 09/25: Replaced, repeat level in AM (7) DVT prophylaxis Status: Acute Assessment & Plan: - OAC (8) Physical deconditioning Status: Acute Assessment & Plan: - PT/OT 09/26: Plan to d/c to SNF ASYA BURLESON MD Sep 26, 2021 10:09
[2021-09-26] MEDS: predniSONE 20 MG TAB PO SCH (10:52)
--- NOTE | 2021-09-26 12:33 | Progress Note - Cardiology ---
Cardiology SOAP Progress Note Subjective: Gen malaise present No cp Shortness of breath with activity is modestly improved No palp or syncope No n/v/d Objective: I&O/Vital Signs 09/26/21 09/26/21 09/26/21 09/26/21 01:00 03:55 07:00 08:00 Temp 36.6 Pulse 88 107 92 86 Resp 18 15 B/P (MAP) 114/40 (64) 146/84 (104) Pulse Ox 94 94 O2 Delivery High Flow N/C High Flow N/C O2 Flow Rate 6.00 6.00 09/26/21 09/26/21 09/26/21 08:47 09:28 11:59 Temp 36.4 35.8 Pulse 88 110 Resp 13 16 B/P (MAP) 146/84 (104) 132/72 (92) Pulse Ox 92 99 92 O2 Delivery High Flow N/C High Flow N/C High Flow N/C O2 Flow Rate 6.00 6.00 6.00 09/25/21 23:59 Intake Total 410 ml Output Total 1775 ml Balance -1365 ml Weight (Pounds): 165 Weight (Ounces): 7.0 Weight (Calculated Kilograms): 74.191380 Constitutional: AAO x 3, well-developed, well-nourished, other (appears anxious (reports chronic anxiety)) Respiratory: No accessory muscle use; other (fair to good air entry, diminished the bases, basal coarse and fine crackles) Cardiovascular: irregularly irregular, S1 and S2, systolic murmur (soft CELESTINO at card base) Gastrointestional: tender (mild epigastric tenderness), soft, guarding; No rebound; audible bowel sounds Extremities: No clubbing, No cyanosis, No significant edema Neurologic/Psychiatric: other (moves all limbs equally) Skin: No rash on exposed areas, No ulcerations on exposed areas Results/Procedures: Labs Laboratory Tests 09/26/21 05:09: White Blood Count 13.0H, Red Blood Count 3.64L, Hemoglobin 8.7L, Hematocrit 29L, Mean Corpuscular Volume 80, Mean Corpuscular Hemoglobin 24L, Mean Corpuscular Hemoglobin Concent 30L, Red Cell Distribution Width 17.8H, Platelet Count 342, Mean Platelet Volume 9.7, Immature Granulocyte % (Auto) 1, Neutrophils (%) (Auto) 91H, Lymphocytes (%) (Auto) 5L, Monocytes (%) (Auto) 3, Eosinophils (%) (Auto) 0, Basophils (%) (Auto) 0, Neutrophils # (Auto) 11.9H, Lymphocytes # (Auto) 0.7L, Monocytes # (Auto) 0.4, Eosinophils # (Auto) 0.0, Basophils # (Auto) 0.0, Immature Granulocyte # (Auto) 0.1, Sodium Level 135, Potassium Level 3.8, Chloride Level 99, Carbon Dioxide Level 24, Anion Gap 12, Blood Urea Nitrogen 19H, Creatinine 0.75, Estimat Glomerular Filtration Rate 74, BUN/Creatinine Ratio 25, Glucose Level 279H, Calcium Level 8.4L, Corrected Calcium 9.0, Total Bilirubin 0.4, Aspartate Amino Transf (AST/SGOT) 17, Alanine Aminotransferase (ALT/SGPT) 15, Alkaline Phosphatase 55, Total Protein 7.1, Al bumin 3.2 Microbiology 09/23/21 Blood Culture - Preliminary, Resulted No growth 09/23/21 Urine Culture - Final, Complete Proteus mirabilis Laboratory Tests 09/25/21 05:33 09/26/21 05:09 A/P: Assessment: Ac diastolic CHF - Echo on 06/20/20: LVEF 50-55%, biatrial enlargement, mild to mod TR, pulm htn (PASP approx 60-65 mmHg) UTI - management per medical services Hypokalemia - replace; likely secondary to diuretics Chronic, permanent atrial fib, first documented on an ECG of 09/27/17 at [facility], rate is currently uncontrolled - Eliquis for stroke prophylaxis CAD - s/p [address] Maza at [facility] in : GREY to LAD, SVG to OM1 and SVG to PDA. Cardiac cath of Oct 15, 2017 (done following an MPI that showed apical ischemia) showed widely patent aortocoronary graft to the distal RCA, widely patent aortocoronary graft to OM system, widely patent left internal mammary artery graft to the distal LAD, normal to hyperdynamic LV systolic function with an ejection fraction of approx 70%, normal LVEDP, no evidence of thoracic aortic aneurysm or dissection, mod-sized infrarenal abdominal aortic aneurysm, mild prox stenosis of the left renal artery - MPI on 06/21/20: mild ant-lat ischemia (technically difficult study due to significant patient motion) normal LVEF PUD - H/O GI bleed with hypovolemic shock during hospitalization of April 16, 2019. GI bleed due to a bleeding prepyloric ulcer (managed by Dr. Lemus) - no recurrence Carotid arterial disease - s/p R CEA with Dr Valenzuela at [facility] in Dec 2017 - s/p L carotid PCI at [facility] in January 2018 (Dr Valenzuela). - Mild carotid arterial disease on carotid u/s of Nov 2019 H/o old lacunar infarction, including R internal capsule (based on w/u of Dec 2017 at [facility]) S/P right hip replacement PAD: - Peripheral angiogram with runoffs of March 2018: Moderate-sized, infrarenal, saccular abdominal aortic aneurysm. A 70% ostial and proximal stenoses of the renal arteries on both sides. 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 Proximal occlusion of the right superficial femoral artery which reconstitutes via collaterals in its distal portion. There is a 2- vessel runoff in the leg. Multiple up to 75% stenoses in the mid and distal portions of the left superficial femoral artery. For these findings she was referred to [place] [facility]. - Arterial Doppler of both legs on 06/22/20: Bilateral lower extremity peripheral vascular disease. There are monophasic waveforms throughout the right lower extreme arterial system which can be seen with more proximal disease. There is a probable stenosis in the mid left SFA where there is some velocity elevation COPD Tobaccoism, quit 2009 HTN H/o hypothyroidism that is followed by her fam phy S/P suprapubic catheter placement per Dr. James on 11-26-2017 S/P umbilical hernia repair on 06-23-[address] Arreguin Plan: * Complex management due to multiple comorbidities (see above) on which anxiety is superimposed * Continue diuretic, CCB, Xarelto * Change diuretics to oral starting tomorrow * Monitor labs closely * Replace electrolytes as indicated CHELLE GOETZ MD FACP [facility] CCDS Sep 26, 2021 12:33
--- NOTE | 2021-09-26 15:39 | Physical Therapy Evaluation ---
PT Evaluation-General Medical Diagnosis Admission Date Sep 23, 2021 at 13:27 Medical Diagnosis: Dyspnea Onset Date: Sep 25, 2021 Therapy Diagnosis Therapy Diagnosis: Gait deficit, strength deficit. Height/Weight Height (Feet): 5 Height (Inches): 2.00 Weight (Pounds): 165 Weight (Ounces): 7.0 Precautions Precautions/Isolations: Aspiration, Fall Prevention, Standard Precautions, Pressure Ulcer Referral Physician: Dr. Culp Reason for Referral: Evaluation/Treatment Medical History Pertinent Medical History: Atrial Fib, CABG, CAD, COPD, DM, GERD, Heart Failure, HTN, OA Social History Home: Assisted Living Current Living Status: Alone Entry Into Home: Level Entry Patient reports she has an apartment at the [facility]. Patient reports after her CVA she has been confined to a w/c. Reports she is able to dress and bathe herself from the wheelchair, she is also able to prepare meals and do some light cleaning. Reports the staff at the [facility] does the majority of the cleaning however. Prior Prior Level of Function SCALE: Activities may be completed with or without assistive devices. 6-Ohdezbeovz-wvwoqiv completes the activity by him/herself with no assistance from a helper. 5-Set-up or Clean-up Assistance-helper sets up or cleans up; patient completes activity. [place] assists only prior to or following the activity. 4-Supervision or Touching Assistance-helper provides verbal cues and/or touching/steadying and/or contact guard assistance as patient completes activity. Assistance may be provided throughout the activity or intermittently. 3-Partial/Moderate Assistance-helper does LESS THAN HALF the effort. [place] lifts, holds or supports trunk or limbs, but provides less than half the effort. 2-Substantial/Maximal Assistance-helper does MORE THAN HALF the effort. [place] lifts or holds trunk or limbs and provides more than half the effort. 7-Zszdrokmx-wxdsak does ALL the effort. Patient does none of the effort to complete the activity. Or, the assistance of 2 or more helpers is required for the patient to complete the activity. If activity was not attempted, code reason: 7-Patient Refused. 9-Not Applicable-not attempted and the patient did not perform the activity before the current illness, exacerbation or injury. 10-Not Attempted due to Environmental Limitations-(lack of equipment, weather restraints, etc.). 88-Not Attempted due to Medical Conditions or Safety Concerns. Bed Mobility: 6 Transfers (B,C,W/C): 6 Gait: 88 Stairs: 88 Wheelchair Mobility: 6 Indoor Mobility (Ambulation): Not [place] Stairs: Not [place] Prior Devices Use: Manual wheelchair PT Evaluation-Current Subjective Patient reports 0/10 pain currently. Reports she is very tired and was falling asleep, but agreeable to treatment. Objective Patient Orientation: Person, Place, Time, Situation Attachments: Oxygen, Askew Catheter ROM/Strength ROM Lower Extremities WFLs bilaterally all planes Strength Lower Extremities 4/5 bilaterally all planes. Sensory Vision: Functional Hearing: Impaired Sensation Right Lower Extremit: Intact Sensation Left Lower Extremity: Intact Transfers Roll Left to Right (QC): 4 Sit to Lying (QC): 4 Lying to Sitting/Side of Bed(Q: 3 Sit to Stand (QC): 3 Gait Does the Patient Walk?: No and Walking Goal NOT indicated Mode of Locomotion: Wheelchair Anticipated Mode of Locomotion: Wheelchair Wheelchair Training Does the Pt Use a Wheelchair?: Yes Distance: N/a this visit Wheel 50 ft with 2 turns (QC): 88 Type of Wheelchair: Manual Balance Sitting Static: Poor Sitting Dynamic: Poor Standing Static: Poor Standing Dynamic: Poor Special Test Comments Patient retropulsive in sitting and standing. Tends also to lean to her right. Assessment/Needs Patient tolerated treatment fair. She was lying supine in bed upon PT arrival, agreeable to treatment. Requires min A/CGA for all observed bed mobility and transfers. Patient retropulsive in standing and sitting with right lateral and posterior lean that requires min/mod A. Patient tolerated sitting at edge of bed ~5 minutes with min A prn. Patient sitting at edge of bed post PT evaluation with OT performing eval. Rehab Potential: Fair Equipment Needs None at this time as patient appears to have all needed equipment. PT Distribution Supervisor Goals Distribution Supervisor Goals PT Distribution Supervisor Goals Time Frame: Oct 11, 2021 Roll Left & Right (QC): 6 Sit to Lying (QC): 6 Lying-Sitting on Side/Bed(QC): 6 Sit to Stand (QC): 5 Chair/Ixj-nm-Dcyal Xfer(QC): 5 Toilet Transfer (QC): 5 Does the Patient Walk: No and Walking Goal NOT indicated Does the Pt use WC or Scooter?: Yes Wheel 50 feet with 2 turns (QC: 6 Type: Manual (6) Wheel 150 feet: 6 Type: Manual (6) PT Plan Problem List Problem List: Activity Tolerance, Functional Strength, Safety, Balance, Gait, Transfer, Bed Mobility, ROM Treatment/Plan Treatment Plan: Continue Plan of Care Treatment Plan: Bed Mobility, Education, Functional Activity Laisha, Functional Strength, Safety, Therapeutic Exercise, Transfers Treatment Duration: Nov 15, 2021 Frequency: 6 times per week Estimated Hrs Per Day: .25 hour per day Patient and/or Family Agrees t: Yes Safety Risks/Education Patient Education: Transfer Techniques Teaching Recipient: Patient Teaching Methods: Demonstration, Discussion Response to Teaching: Verbalize Understanding, Reinforcement Needed Discharge Recommendations Target Placement SNF Time/GCodes Time In: 1313 Time Out: 1333 Total Billed Treatment Time: 20 Total Billed Treatment Visit, EVELINE Bangura PT Sep 26, 2021 15:39
--- NOTE | 2021-09-26 15:45 | Occupational Therapy Eval ---
OT Evaluation-General/PLF Medical Diagnosis Admission Date Sep 23, 2021 at 13:27 Medical Diagnosis: COPD Exacerbation Onset Date: Sep 23, 2021 Therapy Diagnosis Therapy Diagnosis: decreased ADL status Height/Weight Height (Feet): 5 Height (Inches): 2.00 Weight (Pounds): 165 Weight (Ounces): 7.0 Precautions Precautions/Isolations: Aspiration, Fall Prevention, Standard Precautions, Pre ssure Ulcer Referral Physician: Suni Referral Reason: Evaluation/Treatment Medical History Pertinent Medical History: Atrial Fib, CABG, CAD, COPD, DM, GERD, Heart Fa ilure, HTN, OA Additional Medical History Bladder Surgery, CABG, Gallbladder, Asthma, COPD,Aneurysm, Atrial Fibrillation, Coronary Artery Disease, High Cholesterol, Hypertension, GERD, DDD, arthritis, chronic back pain, DM, cataract. Surgical history: intracranial anuerysm repair, bilateral rotator cuff repair, cervical fusion, low back surgery x 2, knee replacement, carpal tunnel release bilaterally, Cardiac Cath, CABG x3 Vetch 2-15. Current History ED due to SOB and wheezing Social History Home: Assisted Living ([facility]) ADL-Prior Level of Function SCALE: Activities may be completed with or without assistive devices. 4-Axtbvptosz-bgpxyui completes the activity by him/herself with no assistance from a helper. 5-Set-up or Clean-up Assistance-helper sets up or cleans up; patient completes activity. [employer] assists only prior to or following the activity. 4-Supervision or Touching Assistance-helper provides verbal cues and/or touching/steadying and/or contact guard assistance as patient completes activity. Assistance may be provided throughout the activity or intermittently. 3-Partial/Moderate Assistance-helper does LESS THAN HALF the effort. [employer] lifts, holds or supports trunk or limbs, but provides less than half the effort. 2-Substantial/Maximal Assistance-helper does MORE THAN HALF the effort. [employer] lifts or holds trunk or limbs and provides more than half the effort. 1-Epweulvfj-iklntv does ALL the effort. Patient does none of the effort to complete the activity. Or, the assistance of 2 or more helpers is required for the patient to complete the activity. If activity was not attempted, code reason: 7-Patient Refused. 9-Not Applicable-not attempted and the patient did not perform the activity before the current illness, exacerbation or injury. 10-Not Attempted due to Environmental Limitations-(lack of equipment, weather restraints, etc.). 88-Not Attempted due to Medical Conditions or Safety Concerns. ADL PLOF Comments Pt reports IND with ADLs at [facility], she primarily uses a w/c for functional mobility. She does not utilize a walker. She indicates she lives in [facility], able to dress and bathe herself at w/c level and indicates independent with toileting. Self Care: Independent OT Current Status Subjective Pt in bed, agreeable to OT tx. Mental Status/Objective Patient Orientation: Person, Place, Situation Attachments: Askew Catheter, Oxygen Current Glasses/Contacts: Yes Upper Extremity ROM decreased bilaterally. RUE shoulder flexion to approx 60 degrees, LUE shoulder flexion to approx 70 degrees. Upper Extremity Strength grossly 3/5 ADL-Treatment Toileting Hygiene (QC): 1 (catheter) Other Treatments Pt in bed, agreeable to OT tx. Pt transferred supine to sit EOB, assistance needed to maintain static sitting balance. Pt then stood at EOB, min A sit to stand. Pt retropulsive in standing with R lateral lean and posterior lean requiring min/mod A for balance. Pt then returned to sit EOB and participated in UE screen. Pt again required min A as needed to maintain sitting balance. Pt transferred sit to supine, assist BLEs. Post tx, pt in bed, call light in reach and all needs met. Education OT Patient Education: Correct positioning, Modified ADL techniques, Progress toward Goal/Update tx plan, Purpose of tx/functional activities, Rehab process, Safety issues, Transfer techniques Teaching Recipient: Patient Teaching Methods: Discussion Response to Teaching: Verbalize Understanding OT Fdc Goals Fdc Goals Time Frame: Oct 06, 2021 Eating (QC): 5 Oral Hygiene (QC): 6 Toileting Hygiene (QC): 4 Shower/Bathe Self (QC): 4 Upper Body Dressing (QC): 5 Lower Body Dressing (QC): 4 On/Off Footwear (QC): 4 Additional Goals: 1-Demonstrate ADL Tasks, 2-Verbalize Understanding, 3- ImproveStrength/Laisha 1=Demonstrate adherence to instructed precautions during ADL tasks. 2=Patient will verbalize/demonstrate understanding of assistive devices/modifications for ADL. 3=Patient will improve strength/tolerance for activity to enable patient to perform ADL's. OT Education/Plan Problem List/Assessment Assessment: Decreased Activ Tolerance, Decreased UE Strength, Impaired Funct Balance, Impaired I ADL's, Impaired Self-Care Skills, Restricted Funct UE ROM Pt would benefit short term skilled OT services in order to increase independence with ADLs and functional mobility and to increase BUE Strength and activity tolerance in order to maximize LOF for return to [place]. Discharge Recommendations Plan/Recommendations: Continue POC Treatment Plan/Plan of Care Patient would benefit from OT for education, treatment and training to promote independence in ADL's, mobility, safety and/or upper extremity function for ADL's. Plan of Care: ADL Retraining, Functional Mobility, UE Funct Exercise/Act Treatment Duration: Oct 06, 2021 Frequency: 5 times per week Estimated Hrs Per Day: .25 hour per day Time/GCodes Start Time: 15:23 Stop Time: 15:34 Total Time Billed (hr/min): 11 Billed Treatment Time 1, ARMANDO CHAVARRIA OT Sep 26, 2021 15:45
[2021-09-26] MEDS: ALPRAZolam 0.25 MG (XANAX) TAB PO PRN (18:06)
[2021-09-27] MEDS: RT-ALBUTEROL/IPRATROPIUM 3 ML (DUONEB) VIAL INH SCH ×4 (02:39→20:39)
[2021-09-27 03:41] VITALS: BP 149/79
[2021-09-27] MEDS: HYDROcodone/APAP 5 MG/325 MG (LORTAB) TAB PO PRN ×4 (05:53→21:05)
[2021-09-27] MEDS: predniSONE 20 MG TAB PO SCH (05:53)
[2021-09-27 06:19] LABS: BASOPHILS % (AUTO) 0 % (0-10); EOSINOPHILS % (AUTO) 0 % (0-10); HEMATOCRIT 31 % (35-52); HEMOGLOBIN 9.4 g/dL (11.5-16.0); LYMPHOCYTES % (AUTO) 9 % (12-44); MEAN CORPUSCULAR HEMOGLOBIN 24 pg (25-34); MEAN CORPUSCULAR HGB CONC 30 g/dL (32-36); MEAN CORPUSCULAR VOLUME 79 fL (80-99); MEAN PLATELET VOLUME 10.2 fL (9.0-12.2); MONOCYTES # (AUTO) 1.2 10^3/uL (0.0-1.0); MONOCYTES % (AUTO) 10 % (0-12); NEUTROPHILS # (AUTO) 9.9 10^3/uL (1.8-7.8); NEUTROPHILS % (AUTO) 81 % (42-75); PLATELET COUNT 373 10^3/uL (130-400); WHITE BLOOD COUNT 12.1 10^3/uL (4.3-11.0)
[2021-09-27 06:43] LABS: ALBUMIN 3.3 GM/DL (3.2-4.5); BILIRUBIN,TOTAL 0.5 MG/DL (0.1-1.0); CALCIUM 8.7 MG/DL (8.5-10.1); CREATININE SERUM 0.69 MG/DL (0.60-1.30); POTASSIUM 2.9 MMOL/L (3.6-5.0); TOTAL PROTEIN 7.5 GM/DL (6.4-8.2)
[2021-09-27 08:00] VITALS: BP 156/87
[2021-09-27] MEDS ORDERED: KCL 20 MEQ TAB (K-DUR) PO ONE ×3 (08:45→14:00)
[2021-09-27] MEDS ORDERED: cefTRIAXone 1,000 MG in WATER (STERILE) FOR INJECTION 10 ML IV SCH (09:00)
[2021-09-27] MEDS: SENNA W/DOCUSATE (SENOKOT S) TABLET PO SCH ×3 (09:00→20:18)
[2021-09-27] MEDS ORDERED: AZITHROMYCIN 250 MG TAB (ZITHROMAX) PO SCH (09:00)
[2021-09-27] MEDS: ALPRAZolam 0.25 MG (XANAX) TAB PO PRN ×2 (09:02→20:16)
[2021-09-27] MEDS: APIXABAN 5 MG (ELIQUIS) TABLET PO SCH ×2 (09:02→20:15)
[2021-09-27] MEDS: FUROSEMIDE 40 MG (LASIX) TAB PO SCH (09:02)
[2021-09-27] MEDS: ACETAMINOPHEN 325 MG TABLET PO PRN (09:03)
[2021-09-27] MEDS: DICLOFENAC 1% GEL 100 GM (VOLTAREN) TUBE TOP SCH ×4 (09:04→20:15)
--- NOTE | 2021-09-27 10:05 | Physical Therapy Daily Note ---
PT Daily Note-Current Subjective Patient in bed pre tx, agrees to PT, has no complaints of pain. Appearance Patient in recliner post tx with nurse call, phone, tray, all needs met. Mental Status Patient Orientation: Person, Place, Situation Attachments: Oxygen Transfers SCALE: Activities may be completed with or without assistive devices. 8-Sndemykcas-ikzowoz completes the activity by him/herself with no assistance from a helper. 5-Set-up or Clean-up Assistance-helper sets up or cleans up; patient completes activity. [place] assists only prior to or following the activity. 4-Supervision or Touching Assistance-helper provides verbal cues and/or touching/steadying and/or contact guard assistance as patient completes activity. Assistance may be provided throughout the activity or intermittently. 3-Partial/Moderate Assistance-helper does LESS THAN HALF the effort. [place] lifts, holds or supports trunk or limbs, but provides less than half the effort. 2-Substantial/Maximal Assistance-helper does MORE THAN HALF the effort. [place] lifts or holds trunk or limbs and provides more than half the effort. 1-Uvjyywafz-gpfmjq does ALL the effort. Patient does none of the effort to complete the activity. Or, the assistance of 2 or more helpers is required for the patient to complete the activity. If activity was not attempted, code reason: 7-Patient Refused. 9-Not Applicable-not attempted and the patient did not perform the activity before the current illness, exacerbation or injury. 10-Not Attempted due to Environmental Limitations-(lack of equipment, weather restraints, etc.). 88-Not Attempted due to Medical Conditions or Safety Concerns. Roll Left & Right (QC): 3 Lying to Sitting/Side of Bed(Q: 3 Sit to Stand (QC): 3 Chair/Tml-pu-Trflf Xfer(QC): 3 Patient needs min assist for supine to sit, and cannot sit without UE support. Patient needs mod assist for sit to stand and transfer to recliner. Patient has to stand again to clean bottom a little (OT performs this). Exercises Seated Therapy Exercises: Ankle pumps, Long arc quads Seated Reps: 20 Treatments bed mobility and transfers, LE strengthening Assessment Current Status: Fair Progress slight retropulsion with standing PT Wellness Nurse Goals Chcf Goals PT Chcf Goals Time Frame: Oct 11, 2021 Roll Left & Right (QC): 6 Sit to Lying (QC): 6 Lying-Sitting on Side/Bed(QC): 6 Sit to Stand (QC): 5 Chair/Pts-da-Vrank Xfer(QC): 5 Toilet Transfer (QC): 5 Does the Patient Walk: No and Walking Goal NOT indicated Does the Pt use WC or Scooter?: Yes Wheel 50 feet with 2 turns (QC: 6 Type: Manual (6) Wheel 150 feet: 6 Type: Manual (6) PT Plan Problem List Problem List: Activity Tolerance, Functional Strength, Safety, Balance, Gait, Transfer, Bed Mobility, ROM Treatment/Plan Treatment Plan: Continue Plan of Care Treatment Plan: Bed Mobility, Education, Functional Activity Laisha, Functional Strength, Safety, Therapeutic Exercise, Transfers Treatment Duration: Nov 15, 2021 Frequency: 6 times per week Estimated Hrs Per Day: .25 hour per day Patient and/or Family Agrees t: Yes Safety Risks/Education Patient Education: Transfer Techniques, Correct Positioning, Safety Issues Teaching Recipient: Patient Teaching Methods: Demonstration, Discussion Response to Teaching: Reinforcement Needed Time/GCodes Time In: 943 Time Out: 956 Total Billed Treatment Time: 13 Total Billed Treatment 1 visit FA 13AVILA TORRES PT Sep 27, 2021 10:05
--- NOTE | 2021-09-27 10:45 | Progress Note - Cardiology ---
Cardiology SOAP Progress Note Subjective: Sitting up in recliner at the bedside States she is feeling better this morning No c/o CP, palpitations or SOB Objective: I&O/Vital Signs Weight (Pounds): 165 Weight (Ounces): 7.0 Weight (Calculated Kilograms): [id number] Constitutional: AAO x 3, well-developed, well-nourished, other (appears anxious (reports chronic anxiety)) Respiratory: No accessory muscle use; other (fair to good air entry, diminished the bases, basal coarse and fine crackles) Cardiovascular: irregularly irregular, S1 and S2, systolic murmur (soft CELESTINO at card base) Gastrointestional: tender (mild epigastric tenderness), soft, guarding; No rebound; audible bowel sounds Extremities: No clubbing, No cyanosis, No significant edema Neurologic/Psychiatric: other (moves all limbs equally) Skin: No rash on exposed areas, No ulcerations on exposed areas Results/Procedures: Labs Microbiology 09/23/21 Blood Culture - Final, Complete No growth 09/23/21 Urine Culture - Final, Complete Proteus mirabilis A/P: Assessment: Ac diastolic CHF - Echo on 06/20/20: LVEF 50-55%, biatrial enlargement, mild to mod TR, pulm htn (PASP approx 60-65 mmHg) UTI - management per medical services Hypokalemia - replace; likely secondary to diuretics Chronic, permanent atrial fib, first documented on an ECG of 09/27/17 at [facility], rate is currently uncontrolled - Eliquis for stroke prophylaxis CAD - s/p [address] Maza at [facility] in : GREY to LAD, SVG to OM1 and SVG to PDA. Cardiac cath of Oct 15, 2017 (done following an MPI that showed apical ischemia) showed widely patent aortocoronary graft to the distal RCA, widely patent aortocoronary graft to OM system, widely patent left internal mammary artery graft to the distal LAD, normal to hyperdynamic LV systolic function with an ejection fraction of approx 70%, normal LVEDP, no evidence of thoracic aortic aneurysm or dissection, mod-sized infrarenal abdominal aortic aneurysm, mild prox stenosis of the left renal artery - MPI on 06/21/20: mild ant-lat ischemia (technically difficult study due to significant patient motion) normal LVEF PUD - H/O GI bleed with hypovolemic shock during hospitalization of April 16, 2019. GI bleed due to a bleeding prepyloric ulcer (managed by Dr. Lemus) - no recurrence Carotid arterial disease - s/p R CEA with Dr Valenzuela at [facility] in Dec 2017 - s/p L carotid PCI at [facility] in January 2018 (Dr Valenzuela). - Mild carotid arterial disease on carotid u/s of Nov 2019 H/o old lacunar infarction, including R internal capsule (based on w/u of Dec 2017 at [facility]) S/P right hip replacement PAD: - Peripheral angiogram with runoffs of March 2018: Moderate-sized, infrarenal, saccular abdominal aortic aneurysm. A 70% ostial and proximal stenoses of the renal arteries on both sides. 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 Proximal occlusion of the right superficial femoral artery which reconstitutes via collaterals in its distal portion. There is a 2- vessel runoff in the leg. Multiple up to 75% stenoses in the mid and distal portions of the left superficial femoral artery. For these findings she was referred to [facility]. - Arterial Doppler of both legs on 06/22/20: Bilateral lower extremity peripheral vascular disease. There are monophasic waveforms throughout the right lower ex treme arterial system which can be seen with more proximal disease. There is a probable stenosis in the mid left SFA where there is some velocity elevation COPD Tobaccoism, quit 2009 HTN H/o hypothyroidism that is followed by her fam phy S/P suprapubic catheter placement per Dr. aJmes on 11-26-2017 S/P umbilical hernia repair on 06-23-[address] 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
--- NOTE | 2021-09-27 11:03 | Occupational Ther Daily Note ---
OT Current Status-Daily Note Subjective Pt mumbling at first, requires cues to repeat self. Appearance Pt left sitting up in chair, all needs within reach. Mental Status/Objective Patient Orientation: Person Attachments: Askew Catheter, IV, Oxygen, Telemetry ADL-Treatment Therapy Code Descriptions/Definitions Functional [place] Measure: 0=Not Assessed/NA 4=Minimal Assistance 1=Total Assistance 5=Supervision or Setup 2=Maximal Assistance 6=Modified [place] 3=Moderate Assistance 7=Complete IndependenceSCALE: Activities may be completed with or without assistive devices. 8-Npunofaibv-xxixyna completes the activity by him/herself with no assistance from a helper. 5-Set-up or Clean-up Assistance-helper sets up or cleans up; patient completes activity. [place] assists only prior to or following the activity. 4-Supervision or Touching Assistance-helper provides verbal cues and/or touching/steadying and/or contact guard assistance as patient completes activity. Assistance may be provided throughout the activity or intermittently. 3-Partial/Moderate Assistance-helper does LESS THAN HALF the effort. [place] lifts, holds or supports trunk or limbs, but provides less than half the effort. 2-Substantial/Maximal Assistance-helper does MORE THAN HALF the effort. [place] lifts or holds trunk or limbs and provides more than half the effort. 8-Cedudchqt-dshmvc does ALL the effort. Patient does none of the effort to complete the activity. Or, the assistance of 2 or more helpers is required for the patient to complete the activity. If activity was not attempted, code reason: 7-Patient Refused. 9-Not Applicable-not attempted and the patient did not perform the activity before the current illness, exacerbation or injury. 10-Not Attempted due to Environmental Limitations-(lack of equipment, weather restraints, etc.). 88-Not Attempted due to Medical Conditions or Safety Concerns. Lower Body Dressing (QC): 1 On/Off Footwear: 1 Toileting Hygiene (QC): 1 Toilet Transfer (QC): 3 (mod) Pt resting in bed at therapy arrival. Min a to elevate torso to sit EOB. Reduced sitting balance; requires 1-2 UE support on bedrail. With coughing spells, pt removes both hands from bedrail and requires min a to maintain upright posture. Listing R with slight posterior lean observed. Stand pivot with Mod to to chair. Small amount of BM incontinence notable during transfer. Mod a to stand/maintain balance as second person assist with george care. Significant back support required to sustain adequate breathing. Education OT Patient Education: Correct positioning, Energy conservation, Modified ADL techniques, Progress toward Goal/Update tx plan, Purpose of tx/functional activities, Reviewed precautions, Rehab process, Safety issues, Transfer techniques Teaching Recipient: Patient Teaching Methods: Discussion Response to Teaching: Verbalize Understanding, Reinforcement Needed OT Correction Goals Correction Goals Time Frame: Oct 06, 2021 Eating (QC): 5 Oral Hygiene (QC): 6 Toileting Hygiene (QC): 4 Shower/Bathe Self (QC): 4 Upper Body Dressing (QC): 5 Lower Body Dressing (QC): 4 On/Off Footwear (QC): 4 Additional Goals: 1-Demonstrate ADL Tasks, 2-Verbalize Understanding, 3-Impro veStrength/Laisha 1=Demonstrate adherence to instructed precautions during ADL tasks. 2=Patient will verbalize/demonstrate understanding of assistive devices/modifications for ADL. 3=Patient will improve strength/tolerance for activity to enable patient to perform ADL's. OT Education/Plan Problem List/Assessment Assessment: Decreased Activ Tolerance, Decreased Safety Aware, Decreased UE Strength, Impaired Cognition, Impaired Funct Balance, Impaired I ADL's, Impaired Self-Care Skills Pt would benefit short term skilled OT services in order to increase independence with ADLs and functional mobility and to increase BUE Strength and activity tolerance in order to maximize LOF for return to [place]. Discharge Recommendations Plan/Recommendations: Continue POC Treatment Plan/Plan of Care Treatment,Training & Education: Yes Patient would benefit from OT for education, treatment and training to promote independence in ADL's, mobility, safety and/or upper extremity function for ADL's. Plan of Care: ADL Retraining, Functional Mobility, UE Funct Exercise/Act Treatment Duration: Oct 06, 2021 Frequency: 5 times per week Estimated Hrs Per Day: .25 hour per day Rehab Potential: Fair Time/GCodes Start Time: 09:44 Stop Time: 09:57 Total Time Billed (hr/min): 13 Billed Treatment Time 1 visit, Asia Lane OT Sep 27, 2021 11:03
[2021-09-27 12:00] VITALS: BP 145/65
[2021-09-27 12:55] VITALS: BP 154/68
[2021-09-27] MEDS ORDERED: dilTIAZem120 MG (CARDIZEM CD) CAP PO SCH (13:15)
--- NOTE | 2021-09-27 14:44 | Progress Note - Cardiology ---
Cardiology SOAP Progress Note Subjective: Shortness of breath is better Weakness is improving No cp or palp or syncope No n/v/d Objective: I&O/Vital Signs 09/27/21 09/27/21 09/27/21 09/27/21 03:41 06:23 07:00 08:00 Temp 36.3 36.3 35.8 Pulse 88 91 122 Resp 20 22 B/P (MAP) 149/79 (102) 156/87 (110) Pulse Ox 95 92 O2 Delivery High Flow N/C High Flow N/C O2 Flow Rate 5.00 5.00 09/27/21 09/27/21 09/27/21 09/27/21 08:00 08:29 12:00 12:55 Temp 35.6 Pulse 124 112 Resp 22 B/P (MAP) 145/65 (91) 154/68 (96) Pulse Ox 92 93 95 O2 Delivery High Flow N/C High Flow N/C High Flow N/C O2 Flow Rate 5.00 8.00 5.00 09/27/21 13:00 Pulse 110 09/26/21 23:59 Intake Total 770 ml Output Total 1650 ml Balance -880 ml Weight (Pounds): 165 Weight (Ounces): 7.0 Weight (Calculated Kilograms): [id number] Constitutional: AAO x 3, well-developed, well-nourished, other (appears anxious (reports chronic anxiety)) Respiratory: No accessory muscle use; other (fair to good air entry, diminished the bases, basal coarse and fine crackles) Cardiovascular: irregularly irregular, S1 and S2, systolic murmur (soft CELESTINO at card base) Gastrointestional: tender (mild epigastric tenderness), soft, guarding; No rebound; audible bowel sounds Extremities: No clubbing, No cyanosis, No significant edema Neurologic/Psychiatric: other (moves all limbs equally) Skin: No rash on exposed areas, No ulcerations on exposed areas Results/Procedures: Labs Laboratory Tests 09/27/21 05:19: White Blood Count 12.1H, Red Blood Count 3.92, Hemoglobin 9.4L, Hematocrit 31L, Mean Corpuscular Volume 79L, Mean Corpuscular Hemoglobin 24L, Mean Corpuscular Hemoglobin Concent 30L, Red Cell Distribution Width 17.8H, Platelet Count 373, Mean Platelet Volume 10.2, Immature Granulocyte % (Auto) 0, Neutrophils (%) (Auto) 81H, Lymphocytes (%) (Auto) 9L, Monocytes (%) (Auto) 10, Eosinophils (%) (Auto) 0, Basophils (%) (Auto) 0, Neutrophils # (Auto) 9.9H, Lymphocytes # (Auto) 1.0, Monocytes # (Auto) 1.2H, Eosinophils # (Auto) 0.0, Basophils # (Auto) 0.0, Immature Granulocyte # (Auto) 0.1, Sodium Level 136, Potassium Level 2.9L, Chloride Level 96L, Carbon Dioxide Level 29, Anion Gap 11, Blood Urea Nitrogen 19H, Creatinine 0.69, Estimat Glomerular Filtration Rate 81, BUN/Creatinine Ratio 28, Glucose Level 240H, Calcium Level 8.7, Corrected Calcium 9.3, Total Bilirubin 0.5, Aspartate Amino Transf (AST/SGOT) 13, Alanine Aminotransferase (ALT/SGPT) 15, Alkaline Phosphatase 61, Total Protein 7.5, Albumin 3.3 Microbiology 09/23/21 Blood Culture - Preliminary, Resulted No growth 09/23/21 Urine Culture - Final, Complete Proteus mirabilis Laboratory Tests 09/26/21 05:09 09/27/21 05:19 A/P: Assessment: Ac diastolic CHF - Echo on 06/20/20: LVEF 50-55%, biatrial enlargement, mild to mod TR, pulm htn (PASP approx 60-65 mmHg) UTI - management per medical services Hypokalemia - replace; likely secondary to diuretics Chronic, permanent atrial fib, first documented on an ECG of 09/27/17 at [facility], rate is currently uncontrolled - Eliquis for stroke prophylaxis CAD - s/p [address] Maza at [facility] in : GREY to LAD, SVG to OM1 and SVG to PDA. Cardiac cath of Oct 15, 2017 (done following an MPI that showed apical ischemia) showed widely patent aortocoronary graft to the distal RCA, widely patent aortocoronary graft to OM system, widely patent left internal mammary artery graft to the distal LAD, normal to hyperdynamic LV systolic function with an ejection fraction of approx 70%, normal LVEDP, no evidence of thoracic aortic aneurysm or dissection, mod-sized infrarenal abdominal aortic aneurysm, mild prox stenosis of the left renal artery - MPI on 06/21/20: mild ant-lat ischemia (technically difficult study due to significant patient motion) normal LVEF PUD - H/O GI bleed with hypovolemic shock during hospitalization of April 16, 2019. GI bleed due to a bleeding prepyloric ulcer (managed by Dr. Lemus) - no recurrence Carotid arterial disease - s/p R CEA with Dr Valenzuela at [facility] in Dec 2017 - s/p L carotid PCI at [facility] in January 2018 (Dr Valenzuela). - Mild carotid arterial disease on carotid u/s of Nov 2019 H/o old lacunar infarction, including R internal capsule (based on w/u of Dec 2017 at [facility]) S/P right hip replacement PAD: - Peripheral angiogram with runoffs of March 2018: Moderate-sized, infrarenal, saccular abdominal aortic aneurysm. A 70% ostial and proximal stenoses of the renal arteries on both sides. 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 Proximal occlusion of the right superficial femoral artery which reconstitutes via collaterals in its distal portion. There is a 2- vessel runoff in the leg. Multiple up to 75% stenoses in the mid and distal port ions of the left superficial femoral artery. For these findings she was referred to [facility]. - Arterial Doppler of both legs on 06/22/20: Bilateral lower extremity peripheral vascular disease. There are monophasic waveforms throughout the right lower extreme arterial system which can be seen with more proximal disease. There is a probable stenosis in the mid left SFA where there is some velocity elevation COPD Tobaccoism, quit 2009 HTN H/o hypothyroidism that is followed by her fam phy S/P suprapubic catheter placement per Dr. James on 11-26-2017 S/P umbilical hernia repair on 06-23-[address] Arreguin Plan: * Hear rate is still not well controlled. Increase Cardizem CD to 360 mg daily, including today * Replenish K * Monitor labs closely CHELLE GOETZ MD FACP [facility]S Sep 27, 2021 14:44
[2021-09-27 16:00] VITALS: BP 121/58
[2021-09-27] MEDS ORDERED: KCL 20 MEQ TAB (K-DUR) PO NR (19:15)
--- NOTE | 2021-09-27 19:22 | Progress Note ---
Subjective Subjective/Events-last exam Patient states that she is doing ok. ON was increased on oxygen. Tolerating PO diet. Review of Systems Pulmonary: Dyspnea, Cough Cardiovascular: Edema; No: Chest Pain, Palpitations Gastrointestinal: No: Nausea, Vomiting, Abdominal Pain Neurological: Weakness, Incoordination Objective Exam Last Set of Vital Signs Vital Signs Date Time Temp Pulse Resp B/P (MAP) Pulse Ox O2 Delivery O2 Flow Rate FiO2 09/27/21 16:00 36.5 81 18 121/58 (79) 100 High Flow N/C 7.00 09/24/21 12:00 45 Capillary Refill : Less Than 3 Seconds I&O Intake and Output 09/26/21 23:59 Intake Total 1500 ml Output Total 2950 ml Balance -1450 ml Intake Oral 1500 ml Output Urine Total 2950 ml General: Alert, Oriented X3, Mild Distress (with minimal activity) Lungs: Clear to Auscultation, Normal Air Movement Heart: Regular Rate, No Murmurs Abdomen: Normal Bowel Sounds, Soft, No Tenderness, No Masses Extremities: No Edema, No Tenderness/Swelling Neuro: Normal Speech, Sensation Intact, Cranial Nerves 3-12 NL Psych/Mental Status: Mental Status NL, Mood NL Results/Procedures Lab Laboratory Tests 09/27/21 05:19: White Blood Count 12.1H, Red Blood Count 3.92, Hemoglobin 9.4L, Hematocrit 31L, Mean Corpuscular Volume 79L, Mean Corpuscular Hemoglobin 24L, Mean Corpuscular Hemoglobin Concent 30L, Red Cell Distribution Width 17.8H, Platelet Count 373, Mean Platelet Volume 10.2, Immature Granulocyte % (Auto) 0, Neutrophils (%) (Auto) 81H, Lymphocytes (%) (Auto) 9L, Monocytes (%) (Auto) 10, Eosinophils (%) (Auto) 0, Basophils (%) (Auto) 0, Neutrophils # (Auto) 9.9H, Lymphocytes # (Auto) 1.0, Monocytes # (Auto) 1.2H, Eosinophils # (Auto) 0.0, Basophils # (Auto) 0.0, Immature Granulocyte # (Auto) 0.1, Sodium Level 136, Potassium Level 2.9L, Chloride Level 96L, Carbon Dioxide Level 29, Anion Gap 11, Blood Urea Nitrogen 19H, Creatinine 0.69, Estimat Glomerular Filtration Rate 81, BUN/Creatinine Ratio 28, Glucose Level 240H, Calcium Level 8.7, Corrected Calcium 9.3, Total Bilirubin 0.5, Aspartate Amino Transf (AST/SGOT) 13, Alanine Aminotransferase (ALT/SGPT) 15, Alkaline Phosphatase 61, Total Protein 7.5, Albumin 3.3 Microbiology 09/23/21 Blood Culture - Preliminary, Resulted No growth 09/23/21 Urine Culture - Final, Complete Proteus mirabilis Assessment/Plan Assessment/Plan (1) Acute and chronic respiratory failure with hypoxia Status: Acute Assessment & Plan: 09/25: Titrated to HFNC, will continue to titrate as to lerated, continue steroids and antibiotics 09/26: Titrated to 5L, which is baseline, continue steroids and antibiotics and plan for Dc to SNF 09/27: Patient had increase in oxygen ON, will give dose of lasix and continue to titrate as tolerated (2) COPD exacerbation Status: Acute (3) Normocytic anemia Status: Acute Assessment & Plan: 09/25: Will get iron panel, patient on OAC, will continue to monitor 09/26: Hgb stable (4) Urinary tract infection due to Proteus Status: Acute Assessment & Plan: - C/s pending, continue cefepime 09/26: Sensitive to Rocephin, antibiotics adjusted (5) Atrial fibrillation Status: Chronic Assessment & Plan: 09/25: Patient on OAC, rate controlled, Cardiology consulted, appreciate recommendations (6) Hypokalemia Status: Resolved Assessment & Plan: 09/25: Replaced, repeat level in AM (7) DVT prophylaxis Status: Acute Assessment & Plan: - OAC (8) Physical deconditioning Status: Acute Assessment & Plan: - PT/OT 09/26: Plan to d/c to SNF ASYA BURLESON MD Sep 27, 2021 19:22
[2021-09-27 20:00] VITALS: BP 137/71
[2021-09-28] VITALS: BP 149/72
[2021-09-28] MEDS: RT-ALBUTEROL/IPRATROPIUM 3 ML (DUONEB) VIAL INH SCH ×4 (03:20→21:30)
[2021-09-28 04:59] VITALS: BP 144/73
[2021-09-28 05:59] LABS: BASOPHILS % (AUTO) 0 % (0-10); EOSINOPHILS # (AUTO) 0.1 10^3/uL (0.0-0.3); EOSINOPHILS % (AUTO) 1 % (0-10); HEMATOCRIT 33 % (35-52); HEMOGLOBIN 10.2 g/dL (11.5-16.0); LYMPHOCYTES # (AUTO) 2.7 10^3/uL (1.0-4.0); LYMPHOCYTES % (AUTO) 18 % (12-44); MEAN CORPUSCULAR HEMOGLOBIN 24 pg (25-34); MEAN CORPUSCULAR HGB CONC 31 g/dL (32-36); MEAN CORPUSCULAR VOLUME 79 fL (80-99); MEAN PLATELET VOLUME 10.1 fL (9.0-12.2); MONOCYTES # (AUTO) 1.5 10^3/uL (0.0-1.0); MONOCYTES % (AUTO) 10 % (0-12); NEUTROPHILS # (AUTO) 10.8 10^3/uL (1.8-7.8); NEUTROPHILS % (AUTO) 71 % (42-75); PLATELET COUNT 391 10^3/uL (130-400); WHITE BLOOD COUNT 15.2 10^3/uL (4.3-11.0)
[2021-09-28 06:05] LABS: ALBUMIN 3.3 GM/DL (3.2-4.5)
[2021-09-28 06:07] LABS: CALCIUM 8.7 MG/DL (8.5-10.1)
[2021-09-28 06:08] LABS: TOTAL PROTEIN 7.1 GM/DL (6.4-8.2)
[2021-09-28 06:10] LABS: BILIRUBIN,TOTAL 0.6 MG/DL (0.1-1.0)
[2021-09-28 06:12] LABS: CREATININE SERUM 0.68 MG/DL (0.60-1.30)
[2021-09-28 06:14] LABS: MAGNESIUM 1.9 MG/DL (1.6-2.4)
[2021-09-28] MEDS: predniSONE 20 MG TAB PO SCH (07:05)
[2021-09-28 08:00] VITALS: BP 146/73
[2021-09-28] MEDS: APIXABAN 5 MG (ELIQUIS) TABLET PO SCH ×2 (08:27→20:17)
[2021-09-28] MEDS: SENNA W/DOCUSATE (SENOKOT S) TABLET PO SCH ×2 (08:27→20:58)
[2021-09-28] MEDS: cefTRIAXone 1 GM PRE-MIX 50 ML IV SCH (08:27)
[2021-09-28] MEDS: FUROSEMIDE 40 MG (LASIX) TAB PO SCH (08:27)
[2021-09-28] MEDS: HYDROcodone/APAP 5 MG/325 MG (LORTAB) TAB PO PRN ×3 (08:28→18:06)
[2021-09-28] MEDS: ALPRAZolam 0.25 MG (XANAX) TAB PO PRN ×2 (09:13→18:06)
[2021-09-28] MEDS: DICLOFENAC 1% GEL 100 GM (VOLTAREN) TUBE TOP SCH ×4 (09:14→20:17)
--- NOTE | 2021-09-28 11:16 | Physical Therapy Progress Note ---
Therapy Progress Note Patient has adamantly declined PT x 3 this a.m. Patient is up in recliner via nursing staff and is non ambulatory PLOF. PT will attempt tomorrow. 1 ref x 3 MANUEL GORDON PT Sep 28, 2021 11:16
--- NOTE | 2021-09-28 11:40 | Occupational Ther Daily Note ---
OT Current Status-Daily Note Subjective NC positioned around neck. Assist to place back into nose. Pt denies pain. Appearance Pt sleeping in chair at OT arrival, easy to rouse. Mental Status/Objective Patient Orientation: Person, Confused Attachments: Askew Catheter, IV, Oxygen, Telemetry ADL-Treatment Therapy Code Descriptions/Definitions Functional [place] Measure: 0=Not Assessed/NA 4=Minimal Assistance 1=Total Assistance 5=Supervision or Setup 2=Maximal Assistance 6=Modified [place] 3=Moderate Assistance 7=Complete IndependenceSCALE: Activities may be completed with or without assistive devices. 6-Xqoithhtjm-esklpei completes the activity by him/herself with no assistance from a helper. 5-Set-up or Clean-up Assistance-helper sets up or cleans up; patient completes activity. [place] assists only prior to or following the activity. 4-Supervision or Touching Assistance-helper provides verbal cues and/or touching/steadying and/or contact guard assistance as patient completes activity. Assistance may be provided throughout the activity or intermittently. 3-Partial/Moderate Assistance-helper does LESS THAN HALF the effort. [place] lifts, holds or supports trunk or limbs, but provides less than half the effort. 2-Substantial/Maximal Assistance-helper does MORE THAN HALF the effort. [place] lifts or holds trunk or limbs and provides more than half the effort. 3-Wjygyzfmp-oappdl does ALL the effort. Patient does none of the effort to complete the activity. Or, the assistance of 2 or more helpers is required for the patient to complete the activity. If activity was not attempted, code reason: 7-Patient Refused. 9-Not Applicable-not attempted and the patient did not perform the activity before the current illness, exacerbation or injury. 10-Not Attempted due to Environmental Limitations-(lack of equipment, weather restraints, etc.). 88-Not Attempted due to Medical Conditions or Safety Concerns. Oral Hygiene (QC): 3 Pt sitting in chair. Requests to brush teeth. Upon pulling dentures out of mouth, pt gagging at sight. OT rinsed food off of dentures for patient prior to her brushing them. Mild shakiness notable in UE's with set up and while brushing dentures but pt still able to maintain grasp of toothbrush/dentures. Pt reports fatigue post very little activity and requests to return to napping. Education OT Patient Education: Energy conservation, Modified ADL techniques, Progress toward Goal/Update tx plan, Purpose of tx/functional activities Teaching Recipient: Patient Teaching Methods: Discussion Response to Teaching: Return Demonstration, Reinforcement Needed OT Assisted Goals Weight Control Lecturer Goals Time Frame: Oct 06, 2021 Eating (QC): 5 Oral Hygiene (QC): 6 Toileting Hygiene (QC): 4 Shower/Bathe Self (QC): 4 Upper Body Dressing (QC): 5 Lower Body Dressing (QC): 4 On/Off Footwear (QC): 4 Additional Goals: 1-Demonstrate ADL Tasks, 2-Verbalize Understanding, 3- ImproveStrength/Laisha 1=Demonstrate adherence to instructed precautions during ADL tasks. 2=Patient will verbalize/demonstrate understanding of assistive devices/modifications for ADL. 3=Patient will improve strength/tolerance for activity to enable patient to perform ADL's. OT Education/Plan Problem List/Assessment Assessment: Decreased Activ Tolerance, Decreased UE Strength, Dependent Transfers, Impaired Cognition, Impaired Coordination, Impaired Funct Balance, Impaired Self-Care Skills Pt would benefit short term skilled OT services in order to increase independence with ADLs and functional mobility and to increase BUE Strength and activity tolerance in order to maximize LOF for return to NH. Discharge Recommendations Plan/Recommendations: Continue POC Therapy Discharge Recommendati: Assisted Living, Bath Aide, Post Acute OT Treatment Plan/Plan of Care Treatment,Training & Education: Yes Patient would benefit from OT for education, treatment and training to promote independence in ADL's, mobility, safety and/or upper extremity function for ADL's. Plan of Care: ADL Retraining, Caregiver Training, Functional Mobility, UE Funct Exercise/Act, W/C Management Training Treatment Duration: Oct 06, 2021 Frequency: 5 times per week Estimated Hrs Per Day: .25 hour per day Rehab Potential: Fair Time/GCodes Start Time: 11:03 Stop Time: 11:14 Total Time Billed (hr/min): 11 Billed Treatment Time 1 visit ADL Asia Kramer OT Sep 28, 2021 11:40
[2021-09-28 12:00] VITALS: BP 144/71
[2021-09-28 16:00] VITALS: BP 163/80
--- NOTE | 2021-09-28 16:17 | Physician Query Clarification ---
Physician Query-General Query to Physician: The medical record reflects the following clinical scenario: The patient, in the setting of History/Risk factors, CAD, HTN Clinical Findings Chest Xray: suggestive of cardiomegaly with pulmonary edema, infection could also have this appearance, BNP 467, SOA at rest, Trace bilateral edema of extremities, Treatment IV and PO Lasix, Metoprolol, I and O, Education of fluid and dietary restrictions Question: Do you agree with the impression CHF/Acute Diastolic CHF per ER physician Dr. Isabel Hutchinson and Dr. Patricia Torrez? 1. Yes; will document Acute Diastolic (congestive) heart failure, present on admission in the Progress Notes 2. No; will continue current documentation in the Progress Notes 3. Other; will document explanation of clinical findings 4. Clinically undetermined; no explanation for clinical findings Please clarify and document your clinical opinion in the Progress Notes and Discharge Summary including the definitive and/or presumptive diagnosis, (suspected or probable), related to the above clinical findings. Please include clinical findings supporting your diagnosis. In responding to this query, please exercise your independent professional judgment. The purpose of this communication is to more accurately reflect the complexity of your patients condition. The fact that a question is asked does not imply that any particular answer is desired or expected. Please remember a lack of response to the above will prompt a phone page by CDI/coding staff Thank you for timely response to this clarification. Deidra Ivy MSN, RN Clinical Casting And Pasting Supervisor [phone] [email or web address] PHYSICIAN RESPONSE: Based on the clinical findings in the record, please respond to the query above on this document as an addendum. Physician Response: Physician Response Yes patient had Acute CHF exacerbation. See Cardiology notes If you have questions please contact: Sound Truck Operator: Ext: Thank you for your time and cooperation. Clinical Casting And Pasting Supervisor/Sound Truck Operator This is a permanent part of the medical record DEIDRA IVY Sep 28, 2021 16:17 ASYA BURLESON MD Oct 11, 2021 20:33
--- NOTE | 2021-09-28 16:47 | Progress Note ---
Subjective Subjective/Events-last exam Patient states that she is feeling better. Awaiting SNF acceptance. Tolerating PO diet and working with PT. Review of Systems Pulmonary: Dyspnea; No Cough Cardiovascular: No: Chest Pain, Palpitations, Edema Gastrointestinal: No: Nausea, Vomiting, Abdominal Pain, Constipation Neurological: Weakness, Incoordination Objective Exam Last Set of Vital Signs Vital Signs Date Time Temp Pulse Resp B/P (MAP) Pulse Ox O2 Delivery O2 Flow Rate FiO2 09/28/21 12:56 70 09/28/21 12:00 35.3 18 144/71 (95) 94 High Flow N/C 4.50 09/24/21 12:00 45 Capillary Refill : Less Than 3 Seconds I&O Intake and Output 09/28/21 00:00 Intake Total 1760 ml Output Total 2225 ml Balance -465 ml Intake Oral 1760 ml Output Urine Total 2225 ml General: Alert, Oriented X3, No Acute Distress HEENT: Mucous Memb Moist/[place] Lungs: Clear to Auscultation, Normal Air Movement Heart: Regular Rate, No Murmurs Abdomen: Normal Bowel Sounds, Soft, No Tenderness Extremities: No Edema, No Tenderness/Swelling Skin: No Rashes Neuro: Normal Speech, Sensation Intact Psych/Mental Status: Mental Status NL, Mood NL Results/Procedures Lab Laboratory Tests 09/28/21 05:19: White Blood Count 15.2H, Red Blood Count 4.21, Hemoglobin 10.2L, Hematocrit 33L, Mean Corpuscular Volume 79L, Mean Corpuscular Hemoglobin 24L, Mean Corpuscular Hemoglobin Concent 31L, Red Cell Distribution Width 17.9H, Platelet Count 391, Mean Platelet Volume 10.1, Immature Granulocyte % (Auto) 1, Neutrophils (%) (Auto) 71, Lymphocytes (%) (Auto) 18, Monocytes (%) (Auto) 10, Eosinophils (%) (Auto) 1, Basophils (%) (Auto) 0, Neutrophils # (Auto) 10.8H, Lymphocytes # (Auto) 2.7, Monocytes # (Auto) 1.5H, Eosinophils # (Auto) 0.1, Basophils # (Auto) 0.0, Immature Granulocyte # (Auto) 0.1, Sodium Level 135, Potassium Level 5.0, Chloride Level 99, Carbon Dioxide Level 28, Anion Gap 8, Blood Urea Nitrogen 24H, Creatinine 0.68, Estimat Glomerular Filtration Rate 83, BUN/Creatinine Ratio 35, Glucose Level 183H, Calcium Level 8.7, Corrected Calcium 9.3, Magnesium Level 1.9, Total Bilirubin 0.6, Aspartate Amino Transf (AST/SGOT) 22, Alanine Aminotransferase (ALT/SGPT) 24, Alkaline Phosphatase 60, Total Protein 7.1, Albumin 3.3 Microbiology 09/23/21 Blood Culture - Preliminary, Resulted No growth 09/23/21 Urine Culture - Final, Complete Proteus mirabilis Assessment/Plan Assessment/Plan (1) Acute and chronic respiratory failure with hypoxia Status: Acute Assessment & Plan: 09/25: Titrated to HFNC, will continue to titrate as tolerated, continue steroids and antibiotics 09/26: Titrated to 5L, which is baseline, continue steroids and antibiotics and plan for Dc to SNF 09/27: Patient had increase in oxygen ON, will give dose of lasix and continue t o titrate as tolerated 09/28: Patient stable on 4-5 L oxygen, awaiting SNF placement (2) COPD exacerbation Status: Acute (3) Normocytic anemia Status: Acute Assessment & Plan: 09/25: Will get iron panel, patient on OAC, will continue to monitor 09/26: Hgb stable (4) Urinary tract infection due to Proteus Status: Acute Assessment & Plan: - C/s pending, continue cefepime 09/26: Sensitive to Rocephin, antibiotics adjusted (5) Atrial fibrillation Status: Chronic Assessment & Plan: 09/25: Patient on OAC, rate controlled, Cardiology consulted, appreciate recommendations (6) Hypokalemia Status: Resolved Assessment & Plan: 09/25: Replaced, repeat level in AM (7) DVT prophylaxis Status: Acute Assessment & Plan: - OAC (8) Physical deconditioning Status: Acute Assessment & Plan: - PT/OT 09/26: Plan to d/c to SNF ASYA BURLESON MD Sep 28, 2021 16:47
[2021-09-28 20:00] VITALS: BP 140/72
[2021-09-28] MEDS: ACETAMINOPHEN 325 MG TABLET PO PRN (20:17)
--- NOTE | 2021-09-28 22:43 | Progress Note - Cardiology ---
Cardiology SOAP Progress Note Subjective: Gen weakness and malaise present but improved from the time of admission No cp or palp or syncope No shortness of breath at rest No n/v/d Objective: I&O/Vital Signs 09/28/21 09/28/21 09/28/21 09/28/21 12:00 12:56 16:00 20:00 Temp 35.3 36.4 36.1 Pulse 84 70 109 98 Resp 18 22 20 B/P (MAP) 144/71 (95) 163/80 (107) 140/72 (94) Pulse Ox 94 97 98 O2 Delivery High Flow N/C High Flow N/C High Flow N/C O2 Flow Rate 4.50 4.00 4.00 09/28/21 09/28/21 21:01 21:30 Pulse Ox 98 O2 Delivery High Flow N/C O2 Flow Rate 4.50 5.00 09/28/21 00:00 Intake Total 1560 ml Output Total 1625 ml Balance -65 ml Weight (Pounds): 165 Weight (Ounces): 7.0 Weight (Calculated Kilograms): [id number] Constitutional: AAO x 3, well-developed, well-nourished, other (appears anxious (reports chronic anxiety)) Respiratory: No accessory muscle use; other (fair to good air entry, diminished the bases, basal coarse and fine crackles) Cardiovascular: irregularly irregular, S1 and S2, systolic murmur (soft CELESTINO at card base) Gastrointestional: tender (mild epigastric tenderness), soft, guarding; No re bound; audible bowel sounds Extremities: No clubbing, No cyanosis, No significant edema Neurologic/Psychiatric: other (moves all limbs equally) Skin: No rash on exposed areas, No ulcerations on exposed areas Results/Procedures: Labs Laboratory Tests 09/28/21 05:19: White Blood Count 15.2H, Red Blood Count 4.21, Hemoglobin 10.2L, Hematocrit 33L, Mean Corpuscular Volume 79L, Mean Corpuscular Hemoglobin 24L, Mean Corpuscular Hemoglobin Concent 31L, Red Cell Distribution Width 17.9H, Platelet Count 391, Mean Platelet Volume 10.1, Immature Granulocyte % (Auto) 1, Neutrophils (%) (Auto) 71, Lymphocytes (%) (Auto) 18, Monocytes (%) (Auto) 10, Eosinophils (%) (Auto) 1, Basophils (%) (Auto) 0, Neutrophils # (Auto) 10.8H, Lymphocytes # (Auto) 2.7, Monocytes # (Auto) 1.5H, Eosinophils # (Auto) 0.1, Basophils # (Auto) 0.0, Immature Granulocyte # (Auto) 0.1, Sodium Level 135, Potassium Level 5.0, Chloride Level 99, Carbon Dioxide Level 28, Anion Gap 8, Blood Urea Nitrogen 24H, Creatinine 0.68, Estimat Glomerular Filtration Rate 83, BUN/Creatinine Ratio 35, Glucose Level 183H, Calcium Level 8.7, Corrected Calcium 9.3, Magnesium Level 1.9, Total Bilirubin 0.6, Aspartate Amino Transf (AST/SGOT) 22, Alanine Aminotransferase (ALT/SGPT) 24, Alkaline Phosphatase 60, Total Protein 7.1, Albumin 3.3 Microbiology 09/23/21 Blood Culture - Final, Complete No growth 09/23/21 Urine Culture - Final, Complete Proteus mirabilis Laboratory Tests 09/27/21 05:19 09/28/21 05:19 A/P: Assessment: Ac diastolic CHF - Echo on 06/20/20: LVEF 50-55%, biatrial enlargement, mild to mod TR, pulm htn (PASP approx 60-65 mmHg) UTI - management per medical services Hypokalemia - replace; likely secondary to diuretics Chronic, permanent atrial fib, first documented on an ECG of 09/27/17 at [facility], rate is currently uncontrolled - Eliquis for stroke prophylaxis CAD - s/p [address] Maza at [facility] in : GREY to LAD, SVG to OM1 and SVG to PDA. Cardiac cath of Oct 15, 2017 (done following an MPI that showed apical ischemia) showed widely patent aortocoronary graft to the distal RCA, widely patent aortocoronary graft to OM system, widely patent left internal mammary artery graft to the distal LAD, normal to hyperdynamic LV systolic function with an ejection fraction of approx 70%, normal LVEDP, no evidence of thoracic aortic aneurysm or dissection, mod-sized infrarenal abdominal aortic aneurysm, mild prox stenosis of the left renal artery - MPI on 06/21/20: mild ant-lat ischemia (technically difficult study due to significant patient motion) normal LVEF PUD - H/O GI bleed with hypovolemic shock during hospitalization of April 16, 2019. GI bleed due to a bleeding prepyloric ulcer (managed by Dr. Lemus) - no recurrence Carotid arterial disease - s/p R CEA with Dr Valenzuela at [facility] in Dec 2017 - s/p L carotid PCI at [facility] in January 2018 (Dr Valenzuela). - Mild carotid arterial disease on carotid u/s of Nov 2019 H/o old lacunar infarction, including R internal capsule (based on w/u of Dec 2017 at [facility]) S/P right hip replacement PAD: - Peripheral angiogram with runoffs of March 2018: Moderate-sized, infrarenal, saccular abdominal aortic aneurysm. A 70% ostial and proximal stenoses of the renal arteries on both sides. 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 Proximal occlusion of the right superficial femoral artery which reconstitutes via collaterals in its distal portion. There is a 2- vessel runoff in the leg. Multiple up to 75% stenoses in the mid and distal portions of the left superficial femoral artery. For these findings she was ref erred to [facility]. - Arterial Doppler of both legs on 06/22/20: Bilateral lower extremity peripheral vascular disease. There are monophasic waveforms throughout the right lower extreme arterial system which can be seen with more proximal disease. There is a probable stenosis in the mid left SFA where there is some velocity elevation COPD Tobaccoism, quit 2009 HTN H/o hypothyroidism that is followed by her fam phy S/P suprapubic catheter placement per Dr. James on 11-26-2017 S/P umbilical hernia repair on 06-23-[address] Arreguin Plan: * Continue current regimen including Cardizem CD for heart rate control, apixaban for stroke prophylaxis, and furosemide for CHF * Reduce dose of K because K 5 today * Monitor labs closely * Ok for d/c from cardiac standpoint * F/u at our office in 2 weeks after d/c CHELLE GOETZ MD FACP [facility] Sep 28, 2021 22:43
[2021-09-29] VITALS: BP 124/84
[2021-09-29] MEDS: HYDROcodone/APAP 5 MG/325 MG (LORTAB) TAB PO PRN ×3 (00:17→10:45)
[2021-09-29] MEDS: MELATONIN 3 MG TABLET PO PRN (00:17)
[2021-09-29] MEDS: RT-ALBUTEROL/IPRATROPIUM 3 ML (DUONEB) VIAL INH SCH ×2 (03:08→10:34)
[2021-09-29 03:40] VITALS: BP 138/78
[2021-09-29] MEDS: predniSONE 20 MG TAB PO SCH (05:53)
[2021-09-29 06:02] LABS: BASOPHILS % (AUTO) 0 % (0-10); EOSINOPHILS # (AUTO) 0.2 10^3/uL (0.0-0.3); EOSINOPHILS % (AUTO) 1 % (0-10); HEMATOCRIT 35 % (35-52); HEMOGLOBIN 10.7 g/dL (11.5-16.0); LYMPHOCYTES # (AUTO) 2.9 10^3/uL (1.0-4.0); LYMPHOCYTES % (AUTO) 18 % (12-44); MEAN CORPUSCULAR HEMOGLOBIN 24 pg (25-34); MEAN CORPUSCULAR HGB CONC 31 g/dL (32-36); MEAN CORPUSCULAR VOLUME 78 fL (80-99); MEAN PLATELET VOLUME 10.2 fL (9.0-12.2); MONOCYTES # (AUTO) 1.3 10^3/uL (0.0-1.0); MONOCYTES % (AUTO) 8 % (0-12); NEUTROPHILS # (AUTO) 11.8 10^3/uL (1.8-7.8); NEUTROPHILS % (AUTO) 72 % (42-75); PLATELET COUNT 422 10^3/uL (130-400); WHITE BLOOD COUNT 16.4 10^3/uL (4.3-11.0)
[2021-09-29 06:09] LABS: ALBUMIN 3.3 GM/DL (3.2-4.5)
[2021-09-29 06:11] LABS: TOTAL PROTEIN 7.3 GM/DL (6.4-8.2)
[2021-09-29 06:13] LABS: BILIRUBIN,TOTAL 0.5 MG/DL (0.1-1.0)
[2021-09-29 06:15] LABS: CREATININE SERUM 0.7 MG/DL (0.60-1.30)
[2021-09-29 06:21] LABS: EOSINOPHILS % (MANUAL) 1 %; LYMPHOCYTES % (MANUAL) 21 %; MONOCYTES % (MANUAL) 4 %; NEUTROPHILS % (MANUAL) 74 %
[2021-09-29 06:22] LABS: ANISOCYTOSIS SLIGHT; HYPOCHROMASIA SLIGHT; MICROCYTOSIS SLIGHT; POIKILOCYTOSIS SLIGHT
[2021-09-29] MEDS: ALPRAZolam 0.25 MG (XANAX) TAB PO PRN (06:30)
[2021-09-29] MEDS ORDERED: KCL 10 MEQ TAB (MICRO K) PO SCH (07:00)
[2021-09-29 08:00] VITALS: BP 140/93
[2021-09-29] MEDS: APIXABAN 5 MG (ELIQUIS) TABLET PO SCH (09:34)
[2021-09-29] MEDS: SENNA W/DOCUSATE (SENOKOT S) TABLET PO SCH (09:34)
[2021-09-29] MEDS: FUROSEMIDE 40 MG (LASIX) TAB PO SCH (09:34)
[2021-09-29] MEDS: cefTRIAXone 1 GM PRE-MIX 50 ML IV SCH (09:34)
[2021-09-29] MEDS: DICLOFENAC 1% GEL 100 GM (VOLTAREN) TUBE TOP SCH ×2 (09:35→13:34)
[2021-09-29] MEDS ORDERED: LORazepam 0.5 MG (ATIVAN) TABLET ONE (10:59)
[2021-09-29] MEDS ORDERED: LORazepam 0.5 MG (ATIVAN) TABLET PO ONE (11:00)
--- NOTE | 2021-09-29 11:30 | Occupational Ther Daily Note ---
OT Current Status-Daily Note Subjective RN reports pt had a panic attack just prior to OT arrival and that Ativan was given. Appearance Pt left sitting in chair, all needs within reach, RN informed. Mental Status/Objective Patient Orientation: Person Attachments: IV, Oxygen, Telemetry ADL-Treatment Therapy Code Descriptions/Definitions Functional [place] Measure: 0=Not Assessed/NA 4=Minimal Assistance 1=Total Assistance 5=Supervision or Setup 2=Maximal Assistance 6=Modified [place] 3=Moderate Assistance 7=Complete IndependenceSCALE: Activities may be completed with or without assistive devices. 1-Bgjarewgkz-nsuvitf completes the activity by him/herself with no assistance from a helper. 5-Set-up or Clean-up Assistance-helper sets up or cleans up; patient completes activity. [place] assists only prior to or following the activity. 4-Supervision or Touching Assistance-helper provides verbal cues and/or t ouching/steadying and/or contact guard assistance as patient completes activity. Assistance may be provided throughout the activity or intermittently. 3-Partial/Moderate Assistance-helper does LESS THAN HALF the effort. [place] lifts, holds or supports trunk or limbs, but provides less than half the effort. 2-Substantial/Maximal Assistance-helper does MORE THAN HALF the effort. [place] lifts or holds trunk or limbs and provides more than half the effort. 8-Rmxtqwmun-leyvfy does ALL the effort. Patient does none of the effort to complete the activity. Or, the assistance of 2 or more helpers is required for the patient to complete the activity. If activity was not attempted, code reason: 7-Patient Refused. 9-Not Applicable-not attempted and the patient did not perform the activity before the current illness, exacerbation or injury. 10-Not Attempted due to Environmental Limitations-(lack of equipment, weather restraints, etc.). 88-Not Attempted due to Medical Conditions or Safety Concerns. Other Treatment Pt sitting in chair at OT arrival. She reports fear/anxiety about not being able to catch breath. OT educated pt on relaxation and breathing strategies to help ease anxiety. She participated in deep breathing and gentle guided imagery (pt reports enjoying the mountains). Min cues on correct PLB techniques. Pt reports feeling slightly better post activity. Education OT Patient Education: Purpose of tx/functional activities Teaching Recipient: Patient Teaching Methods: Demonstration, Discussion Response to Teaching: Return Demonstration, Reinforcement Needed OT Detention Goals Detention Goals Time Frame: Oct 06, 2021 Eating (QC): 5 Oral Hygiene (QC): 6 Toileting Hygiene (QC): 4 Shower/Bathe Self (QC): 4 Upper Body Dressing (QC): 5 Lower Body Dressing (QC): 4 On/Off Footwear (QC): 4 Additional Goals: 1-Demonstrate ADL Tasks, 2-Verbalize Understanding, 3- ImproveStrength/Laisha 1=Demonstrate adherence to instructed precautions during ADL tasks. 2=Patient will verbalize/demonstrate understanding of assistive devices/modifications for ADL. 3=Patient will improve strength/tolerance for activity to enable patient to perform ADL's. OT Education/Plan Problem List/Assessment Assessment: Decreased Activ Tolerance, Decreased Safety Aware, Decreased UE Strength, Impaired Coordination, Impaired Funct Balance, Impaired Self-Care Skills Pt would benefit short term skilled OT services in order to increase independence with ADLs and functional mobility and to increase BUE Strength and activity tolerance in order to maximize LOF for return to [place]. Discharge Recommendations Plan/Recommendations: Continue POC Therapy Discharge Recommendati: Assisted Living, Bath Aide, Post Acute OT Treatment Plan/Plan of Care Treatment,Training & Education: Yes Patient would benefit from OT for education, treatment and training to promote independence in ADL's, mobility, safety and/or upper extremity function for ADL's. Plan of Care: ADL Retraining, Caregiver Training, Functional Mobility, UE Funct Exercise/Act, W/C Management Training Treatment Duration: Oct 06, 2021 Frequency: 5 times per week Estimated Hrs Per Day: .25 hour per day Rehab Potential: Fair Time/GCodes Start Time: 11:05 Stop Time: 11:17 Total Time Billed (hr/min): 12 Billed Treatment Time [address] OT Sep 29, 2021 11:30
[2021-09-29 12:00] VITALS: BP 138/62
--- NOTE | 2021-09-29 12:13 | Discharge Summary ---
Discharge Summary Reconcile Patient Problems Problems Reviewed?: Yes Hospital Course Hospital Course Date of Admission: Sep 23, 2021 at 13:27 Admission Diagnosis : Family Physician/Provider: Itz Chacon MD Date of Discharge: 09/29/21 Discharge Diagnosis: Acute on Chronic Respiratory Failure with Hypoxia COPD Exacerbation Normocytic Anemia UTI Atrial Fibrillation Debility Labs and Pending Lab Test: Laboratory Tests 09/29/21 05:40: White Blood Count 16.4H, Red Blood Count 4.52, Hemoglobin 10.7L, Hematocrit 35, Mean Corpuscular Volume 78L, Mean Corpuscular Hemoglobin 24L, Mean Corpuscular Hemoglobin Concent 31L, Red Cell Distribution Width 17.7H, Platelet Count 422H, Mean Platelet Volume 10.2, Immature Granulocyte % (Auto) 1, Neutrophils (%) (Auto) 72, Lymphocytes (%) (Auto) 18, Monocytes (%) (Auto) 8, Eosinophils (%) (Auto) 1, Basophils (%) (Auto) 0, Neutrophils # (Auto) 11.8H, Lymphocytes # (Auto) 2.9, Monocytes # (Auto) 1.3H, Eosinophils # (Auto) 0.2, Basophils # (Auto) 0.0, Immature Granulocyte # (Auto) 0.2H, Neutrophils % (Manual) 74, Lymphocytes % (Manual) 21, Monocytes % (Manual) 4, Eosinophils % (Manual) 1, Platelet Estimate , Hypochromasia SLIGHT, Poikilocytosis SLIGHT, Anisocytosis SLIGHT, Microcytosis SLIGHT, Sodium Level 136, Potassium Level 4.0, Chloride Level 97L, Carbon Dioxide Level 29, Anion Gap 10, Blood Urea Nitrogen 22H, Creatinine 0.70, Estimat Glomerular Filtration Rate 80, BUN/Creatinine Ratio 31, Glucose Level 190H, Calcium Level 9.0, Corrected Calcium 9.6, Total Bilirubin 0.5, Aspartate Amino Transf (AST/SGOT) 19, Alanine Aminotransferase (ALT/SGPT) 31, Alkaline Phosphatase 65, Total Protein 7.3, Albumin 3.3 Microbiology 09/23/21 Blood Culture - Final, Complete No growth 09/23/21 Urine Culture - Final, Complete Proteus mirabilis Home Meds Active Reported Acidophilus Lactobacilli (Lactobacillus Acidophilus) 1 Each Capsule 1 Each PO DAILY Albuterol Sulfate 2.5 Mg/0.5 Ml Vial.neb 2.5 Mg INH Q6H PRN Atorvastatin Calcium 40 Mg Tablet 40 Mg PO HS Cartia Xt (Diltiazem HCl) 300 Mg Cap.er.24h 300 Mg PO DAILY Antacid Anti-Gas Liquid (Mag Hydrox/Al Hydrox/Simeth) 355 Ml Oral.susp 30 Ml PO Q4H PRN [Flavoxate] 100 Tab 200 Mg PO TID TAKES 2 (100MG) TABS Bupropion Xl (Bupropion HCl) 150 Mg Tab.er.24h 150 Mg PO HS Nyamyc (Nystatin) 15 Gm Powder 1 Applic TOP BID PRN APPLY TO ABDOMINAL FOLDS Lidocaine (Lidocaine HCl) 35 Gm Oint 1 Applic TP BID PRN Tramadol HCl 50 Mg Tablet 50 Mg PO BID Cyclobenzaprine HCl 5 Mg Tablet 2.5 Mg PO DAILY PRN Oral Analgesic (Benzocaine) 9 Gm Gel..gram. 1 Applic MM QID PRN Systane Complete (Propylene Glycol) 1.5 Ml Drops 1 Drop OU TID Eliquis (Apixaban) 2.5 Mg Tablet 2.5 Mg PO BID Aspirin 81 Mg Tab.chew 81 Mg PO Q48H Metoprolol Succinate 25 Mg Tab.er.24h 25 Mg PO HS Zoloft (Sertraline HCl) 100 Mg Tablet 100 Mg PO DAILY Myrbetriq (Mirabegron) 25 Mg Tab.er.24h 25 Mg PO DAILY Robitussin Cough-Chest Dm Liq (Guaifenesin/Dextromethorphan) 237 Ml Liquid 5 Ml PO Q4H PRN Maalox Advanced Suspension (Mag Hydrox/Aluminum Hyd/Simeth) 355 Ml Oral.susp 30 Ml PO DAILY PRN Pantoprazole Sodium 40 Mg Tablet.dr 40 Mg PO DAILY Trazodone HCl 50 Mg Tablet 25 Mg PO HS TAKES 1/2 (50MG) TABLET Acetaminophen 325 Mg Tablet 650 Mg PO Q4H PRN TAKES 2 (325MG) TABLETS Flomax (Tamsulosin HCl) 0.4 Mg Cap 0.4 Mg PO DAILY Gabapentin 400 Mg Capsule 400 Mg PO TID Symbicort 160-4.5 Mcg Inhaler (Budesonide/Formoterol Fumarate) 10.2 Gm Hfa.aer.ad 2 Puff IH BID Skilled NF Admit to: [facility] Emergency Department Certification (SNF) I certify that SNF services are required to be given on an inpatient basis because of the above named patient's need for senior care care on a continuing basis for the conditions(s) for which he/she was receiving inpatient hospital services prior to his/her transfer to the SNF. Jail Facility Order: Nursing Services, Paper Testing Supervisor-Evaluate & Treat, Physical Therapy-Evaluate & Treat, Wound Care-Eval/Treat Oxygen Delivery Method: High Flow N/C Discharge Diet: Cardiac Diet Daily Activity as Tolerated: Yes Resuscitation Status: Do Not Resuscitate Isabela Culp Sep 29, 2021 12:10 Discharge Physical Exam General: Alert, Oriented X3, Cooperative, No Acute Distress HEENT: Mucous Memb Moist/[place] Lungs: Clear to Auscultation, Normal Air Movement Heart: Regular Rate, No Murmurs Abdomen: Normal Bowel Sounds, Soft, No Tenderness, No Masses Extremities: No Edema, No Tenderness/Swelling Skin: No Rashes Neuro: Normal Speech, Sensation Intact, Cranial Nerves 3-12 NL Psych/Mental Status: Mental Status NL, Mood NL ISABELA CULP MD Sep 29, 2021 12:13
[2021-09-29] MEDS ORDERED: PRD20T PO (12:16)
[2021-09-29] MEDS ORDERED: DILT180C85 PO (12:16)
[2021-09-29] MEDS ORDERED: POTA-160 PO (12:16)
[2021-09-29] MEDS ORDERED: FURO40TA4 PO (12:16)
--- NOTE | 2021-09-29 14:23 | Cardiology Progress Note ---
Subjective Date Seen by Provider: Sep 29, 2021 Time Seen by Provider: 14:18 Subjective/Events-last exam Patient was seen at bedside, sitting comfortably, denied any chest pain. Review of Systems General: No Chills, No Night Sweats, No Fatigue, No Malaise, No Appetite, No Other HEENT: No Head Aches, No Visual Changes, No Eye Pain, No Ear Pain, No Dysphasia, No Sinus Congestion, No Post Nasal Drip, No Sore Throat, No Other Pulmonary: No Dyspnea, No Cough, No Pleuritic Chest Pain, No Other Cardiovascular: No: Chest Pain, Palpitations, Orthopnea, Paroxysmal Noc. Dyspnea, Edema, Lt Headedness, Other Objective-Cardiology Exam Last Set of Vital Signs Vital Signs 09/29/21 09/29/21 09/29/21 11:22 12:00 12:50 Temp 36.1 Pulse 103 Resp 20 B/P (MAP) 138/62 (87) Pulse Ox 97 O2 Delivery High Flow N/C O2 Flow Rate 4.00 FiO2 32 I&O Intake and Output 09/29/21 00:00 Intake Total 1380 ml Output Total 2325 ml Balance -945 ml Intake Oral 1370 ml IV Total 10 ml Output Urine Total 2325 ml # Bowel Movements 2 General: Alert, Oriented X3, Cooperative, No Acute Distress HEENT: Mucous Memb Moist/[place] Neck: Supple Lungs: Clear to Auscultation, Normal Air Movement Heart: Regular Rate, Normal S1, Normal S2, No Murmurs Abdomen: Normal Bowel Sounds, Soft, No Tenderness, No Masses Extremities: No Edema, No Tenderness/Swelling Skin: No Rashes Neuro: Normal Speech, Sensation Intact, Cranial Nerves 3-12 NL Psych/Mental Status: Mental Status NL, Mood NL Results Lab Laboratory Tests 09/29/21 05:40 A/P-Cardiology Admission Diagnosis Congestive heart failure Coronary artery disease Hypertension Hyperlipidemia Assessment/Plan Congestive heart failure, acute left ventricular diastolic dysfunction, improved, feeling better. Responded to diuretics. Followed by primary care team Urinary tract infection, improved, managed by medical team Chronic permanent atrial fibrillation, has been maintained on Eliquis to reduce the risk of stroke. Heart rate is controlled. Coronary artery disease, extensive disease. History of CABG in 2014 using GREY to LAD, vein graft to obtuse marginal branch, vein graft to PDA. Cardiac catheterization done in 2017 showed patent bypass graft with small vessel disease nonobstructive disease. Last stress test was done in 2019 showing mild anterior lateral ischemia. Peptic ulcer disease, clinically stable. Continue to monitor Carotid artery stenosis, history of CEA on the right done by Dr. Grey in 2017, on the left done at [place] in 2017. Last ultrasound was done in November 2019 showing mild bilateral disease History of old lacunar infarct with right internal capsule. Clinically stable Peripheral arterial disease, peripheral angiogram done in 2018 showing saccular abdominal aortic aneurysm, 70% ostial and proximal stenosis of the renal arteries on both sides. 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 Proximal occlusion of the right superficial femoral artery with reconstruction via collateral at the distal portion. There are two-vessel runoff in the leg. Multiple area of moderate to severe stenosis at the mid and distal portion of the left superficial femoral artery. Patient was referred for vascular surgery evaluation. History of hip replacement Hypertension, monitor blood pressure Hypothyroidism followed by primary care physician History of suprapubic catheter. MARY RIVERO MD Sep 29, 2021 14:23
[2021-09-29] MEDS ORDERED: RT-ALBUTEROL/IPRATROPIUM 3 ML (DUONEB) VIAL INH SCH (21:00)
== END 2021-09-29 14:40 | DRG 291 ==
LOC: EDUNIT# 10:43 → ER 10:44 → CSD 13:27 → 4TH 09-26 13:46
PROVIDERS: ADMIT Internal Medicine; ATTEND Family Medicine
PROC: 5A09357 Assistance with Respiratory Ventilation, Less than 24 Consecutive Hours, Continuous Positive Airway Pressure (ICD-10-PCS; principal; 2021-09-23)
PROC: 5A0955A Assistance with Respiratory Ventilation, Greater than 96 Consecutive Hours, High Flow/Velocity Cannula (ICD-10-PCS; 2021-09-24)
DX: I11.0 Hypertensive heart disease with heart failure (principal); I50.31 Acute diastolic (congestive) heart failure; J96.21 Acute and chronic respiratory failure with hypoxia; J44.1 Chronic obstructive pulmonary disease with (acute) exacerbation; I48.21 Permanent atrial fibrillation; N39.0 Urinary tract infection, site not specified; Z79.01 Long term (current) use of anticoagulants; Z66 Do not resuscitate; Z20.822 Contact with and (suspected) exposure to COVID-19; E11.9 Type 2 diabetes mellitus without complications; K21.9 Gastro-esophageal reflux disease without esophagitis; I25.10 Atherosclerotic heart disease of native coronary artery without angina pectoris; E78.00 Pure hypercholesterolemia, unspecified; M19.91 Primary osteoarthritis, unspecified site; F41.9 Anxiety disorder, unspecified; F32.A Depression, unspecified; I07.1 Rheumatic tricuspid insufficiency; I27.20 Pulmonary hypertension, unspecified; E03.9 Hypothyroidism, unspecified; E87.6 Hypokalemia; D64.9 Anemia, unspecified; B96.4 Proteus (mirabilis) (morganii) as the cause of diseases classified elsewhere; Z87.891 Personal history of nicotine dependence; Z79.899 Other long term (current) drug therapy; Z79.82 Long term (current) use of aspirin; Z95.1 Presence of aortocoronary bypass graft; Z88.8 Allergy status to other drugs, medicaments and biological substances; Z82.61 Family history of arthritis; Z83.3 Family history of diabetes mellitus; Z82.49 Family history of ischemic heart disease and other diseases of the circulatory system; Z83.49 Family history of other endocrine, nutritional and metabolic diseases
CPT/HCPCS: 36415; 36600; 70450; 71045; 71275; 72125; 80053; 81000; 82805; 83605; 83735; 83880; 84145; 85007; 85025; 85027; 85610; 85730; 87040; 87077; 87088; 87186; 87636; 93005; 93306; 94640; 94760; 96374; 96375; 96376

== ENCOUNTER 2021-10-07 11:49 | Emergency (ER) | payer MEDICARE, MEDICAID ==
[~2021-10-07] VITALS: Ht 157.4 cm; Wt 76.0 kg
[~2021-10-07 11:49] MED LIST changes: +ALB0.5V INH; +ATOR40TA70 PO; +BUPR150T24 PO; +DILT180C85 PO; +DILT300C26 PO; +FLAVOXATE PO; +FURO40TA4 PO; +LACT1CAP87 PO; +LD5O35 TP; +NYST15PO2 TOP; -POTA-179 PO; +POTA10TA6 PO; +TRAM50TA3 PO; +[UNRECOGNIZED DRUG - CODE] PO
[2021-10-07] MEDS ORDERED: LIDOCAINE TOPICAL 4% 50 ML BTL TP ONE (12:00)
[2021-10-07] MEDS ORDERED: VALACYCLOVIR 500 MG TAB (VALTREX) PO SCH (12:00)
[2021-10-07] MEDS ORDERED: predniSONE 20 MG TAB PO ONE (12:00)
[2021-10-07] MEDS ORDERED: KETOROLAC 30 MG/ML VIAL IM ONE (12:00)
[2021-10-07] MEDS ORDERED: HYDROcodone/APAP 5 MG/325 MG (LORTAB) TAB PO ONE (12:00)
--- NOTE | 2021-10-07 12:02 | ED Integumentary General ---
General Chief Complaint: Skin/Wound Problems Stated Complaint: POSSIBLE SHINGLES Source: patient Exam Limitations: no limitations History of Present Illness Date Seen by Provider: Oct 07, 2021 Time Seen by Provider: 11:57 Initial Comments To ER with C/o rash under left breast and left chest wall from [facility]. Has had this rash since she returned home from her hospital admission last week for CHF but rash seemed to get worse and with increased pain 48 hours ago. She is on tramadol for pain but it is not sufficient. Timing/Duration: constant, getting worse Severity: moderate Possible Cause: no cause identified Associated Symptoms: denies symptoms Allergies and Home Medications Allergies Coded Allergies: Sulfa (Sulfonamide Antibiotics) (Verified Allergy, Unknown, 04/16/19) diphenhydramine HCl (Verified Allergy, Unknown, 04/16/19) hydrochlorothiazide (Unverified Allergy, Unknown, 04/16/19) varenicline tartrate (Verified Allergy, Unknown, 04/16/19) Patient Home Medication List Home Medication List Reviewed: Yes Acetaminophen (Acetaminophen) 325 Mg Tablet, 650 MG PO Q4H PRN for PAIN-MILD, (Reported) Entered as Reported by: LLOYD CUEVAS on 04/01/18 0904 Albuterol Sulfate (Albuterol Sulfate) 2.5 Mg/0.5 Ml Vial.neb, 2.5 MG INH Q6H PRN for SHORTNESS OF BREATH, (Reported) Entered as Reported by: FARHAT MATA on 09/25/21 0939 Apixaban (Eliquis) 2.5 Mg Tablet, 2.5 MG PO BID, (Reported) Entered as Reported by: PATSY RODRIGUEZ on 06/19/20 0947 Aspirin (Aspirin) 81 Mg Tab.chew, 81 MG PO Q48H, (Reported) Entered as Reported by: PATSY RODRIGUEZ on 06/19/20 0947 Atorvastatin Calcium (Atorvastatin Calcium) 40 Mg Tablet, 40 MG PO HS, (Report ed) Entered as Reported by: FARHAT MATA on 09/25/21 0936 Benzocaine (Oral Analgesic) 9 Gm Gel..gram., 1 APPLIC MM QID PRN for PAIN- BREAKTHROUGH, (Reported) Entered as Reported by: PATSY RODRIGUEZ on 06/19/20 1001 Budesonide/Formoterol Fumarate (Symbicort 160-4.5 Mcg Inhaler) 10.2 Gm Hfa.aer.ad, 2 PUFF IH BID, (Reported) Entered as Reported by: JOSEE VELAZQUEZ on 05/14/16 1655 Bupropion HCl (Bupropion Xl) 150 Mg Tab.er.24h, 150 MG PO HS, (Reported) Entered as Reported by: FARHAT MATA on 09/25/21 0936 Cyclobenzaprine HCl (Cyclobenzaprine HCl) 5 Mg Tablet, 2.5 MG PO DAILY PRN for PAIN-BREAKTHROUGH, (Reported) Entered as Reported by: FARHAT MATA on 09/25/21 0936 Diltiazem HCl (Diltiazem 24Hr ER) 180 Mg Cap.er.24h, 360 MG PO DAILY Prescribed by: ASYA BURLESON on 09/29/21 1216 Furosemide (Furosemide) 40 Mg Tablet, 40 MG PO DAILY Prescribed by: ASYA BURLESON on 09/29/21 1216 Guaifenesin/Dextromethorphan (Robitussin Cough-Chest Dm Liq) 237 Ml Liquid, 5 ML PO Q4H PRN for COUGH, (Reported) Entered as Reported by: DAVID FIGUEROA on 04/17/19 0850 Lactobacillus Acidophilus (Acidophilus Lactobacilli) 1 Each Capsule, 1 EACH PO DAILY, (Reported) Entered as Reported by: FARHAT MATA on 09/25/21 0939 Lidocaine HCl (Lidocaine) 35 Gm Oint, 1 APPLIC TP BID PRN for PAIN-BREAKTHROUGH, (Reported) Entered as Reported by: FARHAT MATA on 09/25/21 0936 Mag Hydrox/Al Hydrox/Simeth (Antacid Anti-Gas Liquid) 355 Ml Oral.susp, 30 ML PO Q4H PRN for INDIGESTION, (Reported) Entered as Reported by: FARHAT MATA on 09/25/21 0936 Mag Hydrox/Aluminum Hyd/Simeth (Maalox Advanced Suspension) 355 Ml Oral.susp, 30 ML PO DAILY PRN for CONSTIPATION-7TH LINE, (Reported) Entered as Reported by: DAVID FIGUEROA on 04/17/19 0850 Metoprolol Succinate (Metoprolol Succinate) 25 Mg Tab.er.24h, 25 MG PO HS, (Reported) Entered as Reported by: PATSY RODRIGUEZ on 06/19/20 0947 Mirabegron (Myrbetriq) 25 Mg Tab.er.24h, 25 MG PO DAILY, (Reported) Entered as Reported by: DAVID FIGUEROA on 04/17/19 0850 Nystatin (Nyamyc) 15 Gm Powder, 1 APPLIC TOP BID PRN for YEAST, (Reported) Entered as Reported by: FARHAT MATA on 09/25/21 0936 Pantoprazole Sodium (Pantoprazole Sodium) 40 Mg Tablet.dr, 40 MG PO DAILY, (Reported) Entered as Reported by: DAVID FIGUEROA on 04/17/19 0850 Potassium Chloride (Klor-Con 10) 10 Meq Tablet.er, 10 MEQ PO DAILY@0700 Prescribed by: ASYA BURLESON on 09/29/21 1216 Prednisone (Prednisone) 20 Mg Tab, 50 MG PO DAILY@0700 Prescribed by: ASYA BURLESON on 09/29/21 1216 Propylene Glycol (Systane Complete) 1.5 Ml Drops, 1 DROP OU TID, (Reported) Entered as Reported by: PATSY RODRIGUEZ on 06/19/20 0954 Sertraline HCl (Zoloft) 100 Mg Tablet, 100 MG PO DAILY, (Reported) Entered as Reported by: PATSY RODRIGUEZ on 06/19/20 0938 Tamsulosin HCl (Flomax) 0.4 Mg Cap, 0.4 MG PO DAILY, (Reported) Entered as Reported by: DAVID FIGUEROA on 11/27/17 1051 Tramadol HCl (Tramadol HCl) 50 Mg Tablet, 50 MG PO BID, (Reported) Entered as Reported by: FARHAT MATA on 09/25/21 0936 Trazodone HCl (Trazodone HCl) 50 Mg Tablet, 25 MG PO HS, (Reported) Entered as Reported by: LLOYD CUEVAS on 04/01/18 0923 [Flavoxate] 100 TAB, 200 MG PO TID, (Reported) Entered as Reported by: FARHAT MATA on 09/25/21 09 Review of Systems Review of Systems Constitutional: see HPI EENTM: see HPI Respiratory: no symptoms reported Cardiovascular: no symptoms reported Genitourinary: no symptoms reported Musculoskeletal: no symptoms reported Skin: no symptoms reported Psychiatric/Neurological: No Symptoms Reported Endocrine: No Symptoms Reported Past Puyzjwa-Jqnltj-Xyrtxx Hx Immunizations Up To Date Tetanus Booster (TDap): Unknown PED Vaccines UTD: No First/Initial COVID19 Vaccinat: yes Second COVID19 Vaccination Robert: yes Seasonal Allergies Seasonal Allergies: No Past Medical History Surgery/Hospitalization HX: pmh: uti, htn, osteoarthritis, dm 2, copd, disorder, gerd, hyperlipidemia, dysphagia, afib, cad, Surgeries: Yes Adenoidectomy, Appendectomy, Bladder Surgery, Cardiac, CABG, Gallbladder, Hysterectomy, Joint Replacement, Orthopedic, Tonsillectomy Respiratory: Yes Asthma, COPD Currently Using CPAP: No Currently Using BIPAP: No Cardiac: Yes (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, 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, Atrial Fibrillation, Coronary Artery Disease, High Cholesterol, Hypertension Neurological: Yes (HAD BRAIN SURGERY FOR ANEURYSM 2008, dysphagia) Reproductive Disorders: Yes Female Reproductive Disorders: Endometriosis [employer]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 History: Hysterectomy Sexually Transmitted Disease: No Genitourinary: Yes (suprapubic catheter) UTI-Chronic Gastrointestinal: Yes Gastroesophageal Reflux, Chronic Constipation Musculoskeletal: Yes ( BILAT ROTATOR CUFF SURGERY) Degenerate Disk Disease, Arthritis, Chronic Back Pain Endocrine: Yes Diabetes, Non-Insulin dep Cataract Loss of Vision: Denies Hearing Impairment: Denies Cancer: No Psychosocial: Yes (panic disorder) Anxiety, Depression Integumentary: No Blood Disorders: No Adverse Reaction/Blood Tranf: No Family Medical History Cancer 09 SISTER Cancer of colon Cataract 03 MOTHER, Onset:Unknown Family history: Allergy 03 FATHER, Onset:Unknown 03 MOTHER, Onset:Unknown Family history: Arthritis 03 FATHER, Onset:Unknown 03 MOTHER, Onset:Unknown 09 SISTER, Onset:Unknown Family history: Cardiovascular disease 03 FATHER, Onset:Unknown 03 MOTHER, Onset:Unknown 09 BROTHER, Onset:Unknown 09 SISTER, Onset:Unknown Family history: Diabetes mellitus 03 MOTHER, Onset:Unknown Family history: Gastrointestinal disease 03 FATHER, Onset:Unknown Family history: Hypertension 03 MOTHER, Onset:Unknown Family history: Osteoporosis 03 MOTHER, Onset:Unknown Hearing loss 03 FATHER, Onset:Unknown Heart disease 03 FATHER, Onset:Unknown 03 MOTHER, Onset:Unknown 09 BROTHER, Onset:Unknown Hypercholesterolemia 03 MOTHER, Onset:Unknown Malignant neoplasm of lung 09 SISTER, Onset:Unknown Myocardial infarction 09 BROTHER, Onset:Unknown Parkinson's disease Stroke 03 FATHER, Onset:Unknown Thyroid disease No Family History of: Abdominal aortic aneurysm Page's disease Alcoholism Aphasia Chest pain Congenital heart disease Congestive heart failure Cystic fibrosis Dementia Dysphagia Family history: Alzheimer's disease Family history: Asthma Family history: Breast disease Family history: Coronary thrombosis Family history: Glaucoma Family history: Thyroid disorder Headache Hereditary disease History of - anemia History of - disorder History of - respiratory disease History of drug abuse Human immunodeficiency virus (HIV) seropositivity Infertile Kidney disease Prostate cancer Psychotic disorder Seizure disorder Tuberculosis Visual impairment Heart Disease, Diabetes Physical Exam Vital Signs Capillary Refill : General Appearance: WD/WN, mild distress Neck: non-tender, full range of motion Respiratory: no respiratory distress, no accessory muscle use Neurologic/Psychiatric: alert, normal mood/affect, oriented x 3 Skin: normal color, warm/dry Skin Problem Location: other (erythematous vesicular tender to palpation rash beneath left breast and left lateral and posterior chest wall. ) Progress/Results/Core Measures Results/Orders My Orders Orders - NIK MCKEON APRN Valacyclovir Tablet (Valtrex Tablet) (10/07/21 12:00) Hydrocodone/Apap 5/325 Tablet (Lortab 5 (10/07/21 12:00) Ketorolac Injection (Toradol Injection) (10/07/21 12:00) Lidocaine 4% Topical (Xylocaine Topical (10/07/21 12:00) Prednisone Tablet (Deltasone Tablet) (10/07/21 12:00) Departure Impression Primary Impression: Herpes zoster Disposition: HOME, SELF-CARE Condition: Stable Departure-Patient Inst. Decision time for Depature: 12:01 Referrals: SHANIQUE VEGA MD (PCP/Family) Primary Care Physician Patient Instructions: Shingles Add. Discharge Instructions: 1. Do not apply any creams or ointments to the rash. Medication as directed. All discharge instructions reviewed with patient and/or family. Voiced understanding. Scripts Hydrocodone/Acetaminophen (Hydrocodone-Acetamin 5-325 mg) 1 Each Tablet 1 TAB PO Q4H PRN for PAIN-MODERATE (5-7), #20 TAB Prov: NIK MCKEON APRN 10/07/21 Valacyclovir HCl (Valacyclovir) 1,000 Mg Tablet 1000 MG PO TID, #21 TAB Prov: NIK MCKEON APRN 10/07/21 Prednisone (Prednisone) 10 Mg Tab.ds.pk 10 MG PO DAILY, #21 EA Take 6 tabs(60mg)daily,decrease by 1 tab(10MG)daily. Prov: NIK MCKEON APRN 10/07/21 NIK MCKEON APRN Oct 07, 2021 12:02
[2021-10-07] MEDS ORDERED: PRED10TA22 PO (12:03)
[2021-10-07] MEDS ORDERED: ACHD5005 PO (12:03)
[2021-10-07] MEDS ORDERED: VALA10007 PO (12:03)
[2021-10-07 12:47] VITALS: BP 145/89
== END 2021-10-07 12:49 | disposition home or self-care (01) ==
LOC: EDUNIT# 11:49 → ER 11:50
DX: B02.9 Zoster without complications (principal); J44.9 Chronic obstructive pulmonary disease, unspecified; I10 Essential (primary) hypertension; I48.91 Unspecified atrial fibrillation; I25.10 Atherosclerotic heart disease of native coronary artery without angina pectoris; E78.00 Pure hypercholesterolemia, unspecified; K21.9 Gastro-esophageal reflux disease without esophagitis; E11.9 Type 2 diabetes mellitus without complications; F41.9 Anxiety disorder, unspecified; F32.9 Major depressive disorder, single episode, unspecified; G89.29 Other chronic pain; M54.9 Dorsalgia, unspecified; Z79.01 Long term (current) use of anticoagulants; Z79.82 Long term (current) use of aspirin; Z79.899 Other long term (current) drug therapy; Z79.891 Long term (current) use of opiate analgesic
CPT/HCPCS: 99283

== ENCOUNTER 2021-11-30 11:16 | Emergency (ER) | payer MEDICARE, MEDICAID ==
[~2021-11-30] VITALS: Ht 157 cm; Wt 68.0 kg
[~2021-11-30 11:16] MED LIST changes: +POTA-160 PO; +POTA-179 PO; -POTA10TA6 PO; +VALA10007 PO
--- NOTE | 2021-11-30 11:25 | ED General ---
General Chief Complaint: General Problems/Pain Stated Complaint: SHINGLE PAIN Source of Information: Patient Exam Limitations: No Limitations History of Present Illness Date Seen by Provider: Nov 30, 2021 Time Seen by Provider: 11:21 Initial Comments To ER by EMS from [facility] with left chest wall pain. She was seen here by me on 10/07/2021 for herpes zoster. I gave her a prescription for hydrocodone prednisone and valacyclovir. She completed that. She is on gabapentin 400 mg 4 times daily. She has had severe pain for the past few days and tolerable today. Tylenol is not helping. She describes the pain as a burning sensation Timing/Duration: 1 Week Severity: Moderate Associated Systoms: Denies Symptoms Allergies and Home Medications Allergies Coded Allergies: Sulfa (Sulfonamide Antibiotics) (Verified Allergy, Unknown, 04/16/19) diphenhydramine HCl (Verified Allergy, Unknown, 04/16/19) hydrochlorothiazide (Unverified Allergy, Unknown, 04/16/19) varenicline tartrate (Verified Allergy, Unknown, 04/16/19) Patient Home Medication List Home Medication List Reviewed: Yes Acetaminophen (Acetaminophen) 325 Mg Tablet, 650 MG PO Q4H PRN for PAIN-MILD, (Reported) Entered as Reported by: LLOYD CUEVAS on 04/01/18 0904 Albuterol Sulfate (Albuterol Sulfate) 2.5 Mg/0.5 Ml Vial.neb, 2.5 MG INH Q6H PRN for SHORTNESS OF BREATH, (Reported) Entered as Reported by: FARHAT MATA on 09/25/21 0939 Apixaban (Eliquis) 2.5 Mg Tablet, 2.5 MG PO BID, (Reported) Entered as Reported by: PATSY RODRIGUEZ on 06/19/20 0947 Aspirin (Aspirin) 81 Mg Tab.chew, 81 MG PO Q48H, (Reported) Entered as Reported by: PATSY RODRIGUEZ on 06/19/20 0947 Atorvastatin Calcium (Atorvastatin Calcium) 40 Mg Tablet, 40 MG PO HS, (Reported) Entered as Reported by: FARHAT MATA on 09/25/21 0936 Benzocaine (Oral Analgesic) 9 Gm Gel..gram., 1 APPLIC MM QID PRN for PAIN- BREAKTHROUGH, (Reported) Entered as Reported by: PATSY RODRIGUEZ on 06/19/20 1001 Budesonide/Formoterol Fumarate (Symbicort 160-4.5 Mcg Inhaler) 10.2 Gm Hfa.aer.ad, 2 PUFF IH BID, (Reported) Entered as Reported by: JOSEE VELAZQUEZ on 05/14/16 1655 Bupropion HCl (Bupropion Xl) 150 Mg Tab.er.24h, 150 MG PO HS, (Reported) Entered as Reported by: FARHAT MATA on 09/25/21 09 Cyclobenzaprine HCl (Cyclobenzaprine HCl) 5 Mg Tablet, 2.5 MG PO DAILY PRN for PAIN-BREAKTHROUGH, (Reported) Entered as Reported by: FARHAT MATA on 09/25/21 09 Diltiazem HCl (Diltiazem 24Hr ER) 180 Mg Cap.er.24h, 360 MG PO DAILY Prescribed by: ASYA BURLESON on 09/29/21 1216 Furosemide (Furosemide) 40 Mg Tablet, 40 MG PO DAILY Prescribed by: ASYA BURLESON on 09/29/21 1216 Guaifenesin/Dextromethorphan (Robitussin Cough-Chest Dm Liq) 237 Ml Liquid, 5 ML PO Q4H PRN for COUGH, (Reported) Entered as Reported by: DAVID FIGUEROA on 04/17/19 0850 Hydrocodone/Acetaminophen (Hydrocodone-Acetamin 5-325 mg) 1 Each Tablet, 1 TAB PO Q4H PRN for PAIN-MODERATE (5-7) Prescribed by: NIK MCKEON on 10/07/21 1204 Lactobacillus Acidophilus (Acidophilus Lactobacilli) 1 Each Capsule, 1 EACH PO DAILY, (Reported) Entered as Reported by: FAHRAT MATA on 09/25/21 0939 Lidocaine HCl (Lidocaine) 35 Gm Oint, 1 APPLIC TP BID PRN for PAIN-BREAKTHROUGH, (Reported) Entered as Reported by: FARHAT MATA on 09/25/21 09 Mag Hydrox/Al Hydrox/Simeth (Antacid Anti-Gas Liquid) 355 Ml Oral.susp, 30 ML PO Q4H PRN for INDIGESTION, (Reported) Entered as Reported by: FARHAT MATA on 09/25/21 09 Mag Hydrox/Aluminum Hyd/Simeth (Maalox Advanced Suspension) 355 Ml Oral.susp, 30 ML PO DAILY PRN for CONSTIPATION-7TH LINE, (Reported) Entered as Reported by: DAVID FIGUEROA on 04/17/19 0850 Metoprolol Succinate (Metoprolol Succinate) 25 Mg Tab.er.24h, 25 MG PO HS, (Reported) Entered as Reported by: PATSY RODRIGUEZ on 06/19/20 0947 Mirabegron (Myrbetriq) 25 Mg Tab.er.24h, 25 MG PO DAILY, (Reported) Entered as Reported by: DAVID FIGUEROA on 04/17/19 0850 Nystatin (Nyamyc) 15 Gm Powder, 1 APPLIC TOP BID PRN for YEAST, (Reported) Entered as Reported by: FARHAT MATA on 09/25/21 0936 Oxycodone HCl/Acetaminophen (Oxycodone-Acetaminophen 5-325) 1 Each Tablet, 1 EACH PO Q6H PRN for PAIN-MODERATE Prescribed by: NIK MCKEON on 11/30/21 1206 Pantoprazole Sodium (Pantoprazole Sodium) 40 Mg Tablet.dr, 40 MG PO DAILY, (Reported) Entered as Reported by: DAVID FIGEUROA on 04/17/19 0850 Potassium Chloride (Klor-Con 10) 10 Meq Tablet.er, 10 MEQ PO DAILY@0700 Prescribed by: ASYA BURLESON on 09/29/21 1216 Prednisone (Prednisone) 20 Mg Tab, 50 MG PO DAILY@0700 Prescribed by: ASYA BURLESON on 09/29/21 1216 Prednisone (Prednisone) 10 Mg Tab.ds.pk, 10 MG PO DAILY Prescribed by: NIK MCKEON on 10/07/21 1203 Propylene Glycol (Systane Complete) 1.5 Ml Drops, 1 DROP OU TID, (Reported) Entered as Reported by: PATSY RODRIGUEZ on 06/19/20 0954 Sertraline HCl (Zoloft) 100 Mg Tablet, 100 MG PO DAILY, (Reported) Entered as Reported by: PATSY RODRIGUEZ on 06/19/20 0938 Tamsulosin HCl (Flomax) 0.4 Mg Cap, 0.4 MG PO DAILY, (Reported) Entered as Reported by: DAVID FIGUEROA on 11/27/17 1051 Tramadol HCl (Tramadol HCl) 50 Mg Tablet, 50 MG PO BID, (Reported) Entered as Reported by: FARHAT MATA on 09/25/21 0936 Trazodone HCl (Trazodone HCl) 50 Mg Tablet, 25 MG PO HS, (Reported) Entered as Reported by: LLOYD CUEVAS on 04/01/18 0923 Valacyclovir HCl (Valacyclovir) 1,000 Mg Tablet, 1,000 MG PO TID Prescribed by: NIK MCKEON on 10/07/21 1203 [Flavoxate] 100 TAB, 200 MG PO TID, (Reported) Entered as Reported by: FARHAT MATA on 09/25/21 0936 Review of Systems Review of Systems Constitutional: see HPI EENTM: see HPI Respiratory: no symptoms reported Cardiovascular: no symptoms reported Genitourinary: no symptoms reported Musculoskeletal: see HPI Skin: see HPI Psychiatric/Neurological: No Symptoms Reported Hematologic/Lymphatic: No Symptoms Reported Past Czkzzaj-Ntfhqd-Iwuwsd Hx Immunizations Up To Date Tetanus Booster (TDap): Unknown PED Vaccines UTD: No First/Initial COVID19 Vaccinat: NOV Second COVID19 Vaccination Robert: NOV Seasonal Allergies Seasonal Allergies: No Past Medical History Surgery/Hospitalization HX: pmh: uti, htn, osteoarthritis, dm 2, copd, disorder, gerd, hyperlipidemia, dysphagia, afib, cad, Surgeries: Yes Adenoidectomy, Appendectomy, Bladder Surgery, Cardiac, CABG, Gallbladder, Hysterectomy, Joint Replacement, Orthopedic, Tonsillectomy Respiratory: Yes Asthma, COPD Currently Using CPAP: No Currently Using BIPAP: No Cardiac: Yes (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, 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, Atrial Fibrillation, Coronary Artery Disease, High Cholesterol, Hypertension Neurological: Yes (HAD BRAIN SURGERY FOR ANEURYSM 2008, dysphagia) Reproductive Disorders: Yes Female Reproductive Disorders: Endometriosis 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 Sexually Transmitted Disease: No Genitourinary: Yes (suprapubic catheter) UTI-Chronic Gastrointestinal: Yes Gastroesophageal Reflux, Chronic Constipation Musculoskeletal: Yes ( BILAT ROTATOR CUFF SURGERY) Degenerate Disk Disease, Arthritis, Chronic Back Pain Endocrine: Yes Diabetes, Non-Insulin dep Cataract Loss of Vision: Denies Hearing Impairment: Denies Cancer: No Psychosocial: Yes (panic disorder) Anxiety, Depression Integumentary: No Blood Disorders: No Adverse Reaction/Blood Tranf: No Family Medical History Cancer 09 SISTER Cancer of colon Cataract 03 MOTHER, Onset:Unknown Family history: Allergy 03 FATHER, Onset:Unknown 03 MOTHER, Onset:Unknown Family history: Arthritis 03 FATHER, Onset:Unknown 03 MOTHER, Onset:Unknown 09 SISTER, Onset:Unknown Family history: Cardiovascular disease 03 FATHER, Onset:Unknown 03 MOTHER, Onset:Unknown 09 BROTHER, Onset:Unknown 09 SISTER, Onset:Unknown Family history: Diabetes mellitus 03 MOTHER, Onset:Unknown Family history: Gastrointestinal disease 03 FATHER, Onset:Unknown Family history: Hypertension 03 MOTHER, Onset:Unknown Family history: Osteoporosis 03 MOTHER, Onset:Unknown Hearing loss 03 FATHER, Onset:Unknown Heart disease 03 FATHER, Onset:Unknown 03 MOTHER, Onset:Unknown 09 BROTHER, Onset:Unknown Hypercholesterolemia 03 MOTHER, Onset:Unknown Malignant neoplasm of lung 09 SISTER, Onset:Unknown Myocardial infarction 09 BROTHER, Onset:Unknown Parkinson's disease Stroke 03 FATHER, Onset:Unknown Thyroid disease No Family History of: Abdominal aortic aneurysm Basin's disease Alcoholism Aphasia Chest pain Congenital heart disease Congestive heart failure Cystic fibrosis Dementia Dysphagia Family history: Alzheimer's disease Family history: Asthma Family history: Breast disease Family history: Coronary thrombosis Family history: Glaucoma Family history: Thyroid disorder Headache Hereditary disease History of - anemia History of - disorder History of - respiratory disease History of drug abuse Human immunodeficiency virus (HIV) seropositivity Infertile Kidney disease Prostate cancer Psychotic disorder Seizure disorder Tuberculosis Visual impairment Heart Disease, Diabetes Physical Exam Vital Signs Vital Signs - First Documented 11/30/21 11:16 Temp 36.3 Pulse 120 Resp 93 B/P (MAP) 136/93 (107) Pulse Ox 96 Capillary Refill : Height, Weight, BMI Height: 5'2.00" Weight: 165lbs. 7.0oz. [id number]; 30.00 BMI Method:Stated General Appearance: No Apparent Distress, WD/WN, Other (Crying appears uncomfortable) Eyes: Bilateral Eye Normal Inspection, Bilateral Eye PERRL, Bilateral Eye EOMI Respiratory: No Accessory Muscle Use, No Respiratory Distress Gastrointestinal: Normal Bowel Sounds, Non Tender, Soft Neurologic/Psychiatric: Alert, Oriented x3 Skin: Normal Color, Warm/Dry, Other (There is a dark purplish rash at the same location of previous herpes zoster infection. This is under the left breast and left lateral chest wall. It is flat there are no open wounds or drainage or crusts.) Progress/Results/Core Measures Suspected Sepsis SIRS Temperature: Pulse: Respiratory Rate: Blood Pressure / Mean: Results/Orders My Orders Orders - NIK MCKEON APRN Ketorolac Injection (Toradol Injection) (11/30/21 11:30) Oxycodone/Apap 5/325mg Tablet (Percocet (11/30/21 11:30) Medications Given in ED Current Medications Medications Dose Ordered Sig/Kervin Route Start Time Stop Time Status Last Admin Dose Admin Ketorolac Tromethamine 30 mg ONCE ONCE IM 11/30/21 11:30 11/30/21 11:31 DC 11/30/21 11:29 30 MG Oxycodone/ Acetaminophen 1 tab ONCE ONCE PO 11/30/21 11:30 11/30/21 11:31 DC 11/30/21 11:30 1 TAB Vital Signs/I&O 11/30/21 11:16 Temp 36.3 Pulse 120 Resp 93 B/P (MAP) 136/93 (107) Pulse Ox 96 Capillary Refill : Departure Impression Primary Impression: Postherpetic neuralgia Disposition: 01 HOME, SELF-CARE Condition: Stable Departure-Patient Inst. Decision time for Depature: 11:24 Referrals: SHANIQUE VEGA MD (PCP/Family) Primary Care Physician Patient Instructions: Shingles Add. Discharge Instructions: 1. Return to ER for any concerns. Follow-up with primary care. Pain medication as directed. All discharge instructions reviewed with patient and/or family. Voiced understanding. Scripts Oxycodone HCl/Acetaminophen (Oxycodone-Acetaminophen 5-325) 1 Each Tablet 1 EACH PO Q6H PRN for PAIN-MODERATE MDD 6 for 3 Days, #20 TAB 0 Refills . Prov: NIK MCKEON APRN 11/30/21 NIK MCKEON APRN Nov 30, 2021 11:24
[2021-11-30] MEDS ORDERED: oxyCODONE/APAP 5/325MG (PERCOCET 5) TABLET PO ONE (11:30)
[2021-11-30] MEDS ORDERED: KETOROLAC 60 MG/2 ML VIAL IM ONE (11:30)
[2021-11-30] MEDS ORDERED: OXYC1TAB11 PO ×2 (12:00→12:06)
[2021-11-30] MEDS ORDERED: LIDOCAINE 4% (SALONPAS) PATCH TOP ONE (12:45)
[2021-11-30 12:57] VITALS: BP 102/66
== END 2021-11-30 12:57 | disposition home or self-care (01) ==
LOC: EDUNIT# 11:16 → ER 11:17
DX: B02.29 Other postherpetic nervous system involvement (principal); F41.0 Panic disorder [episodic paroxysmal anxiety]; F32.A Depression, unspecified; E11.9 Type 2 diabetes mellitus without complications; E78.5 Hyperlipidemia, unspecified; J44.9 Chronic obstructive pulmonary disease, unspecified; I25.10 Atherosclerotic heart disease of native coronary artery without angina pectoris; E78.00 Pure hypercholesterolemia, unspecified; I10 Essential (primary) hypertension; Z95.1 Presence of aortocoronary bypass graft; Z79.899 Other long term (current) drug therapy; Z88.8 Allergy status to other drugs, medicaments and biological substances; Z88.2 Allergy status to sulfonamides; Z79.82 Long term (current) use of aspirin
CPT/HCPCS: 96372; 99283

== ENCOUNTER 2022-06-07 10:03 | Emergency (ER) | payer MEDICARE, MEDICAID ==
[~2022-06-07] VITALS: Ht 157.5 cm; Wt 80.3 kg
[~2022-06-07 10:03] MED LIST changes: +MAG-123 PO; +MORP30CA13 PO; -MORP30CA16 PO; +OXYC1TAB11 PO; -[UNRECOGNIZED DRUG - CODE] PO
[2022-06-07] MEDS ORDERED: RT-ALBUTEROL HFA 8.5 GM INHALER IH STA (10:13)
[2022-06-07] MEDS ORDERED: NS IV 500 ML 500 ML IV STA (10:26)
--- NOTE | 2022-06-07 10:26 | ED Respiratory ---
General Chief Complaint: COVID19 Suspect/Confirmed Stated Complaint: COVID +,SOB Nursing Triage Note: PT TO ROOM 09 VIA [facility] FROM [facility] WITH C/O SOB AND TACHYCARDIA. EMS REPORTS PT TESTED COVID POS ON THE . Source: patient, EMS, prison records Exam Limitations: no limitations History of Present Illness Date Seen by Provider: Jun 07, 2022 Time Seen by Provider: 10:04 Initial Comments 86-year-old female with past medical history of afib on Eliquis, COPD with chronic respiratory failure on roughly 3 L oxygen coming in via EMS from her prison due to concerns for worsening dyspnea. The patient tested positive for COVID on the , 2 days ago. Today she was feeling a little bit more short of breath so they increased her to 4 L oxygen which EMS reports she was 99% on. Denies any fevers, bodies, chest pain, vomiting, diarrhea, or any other concerns. Allergies and Home Medications Allergies Coded Allergies: Sulfa (Sulfonamide Antibiotics) (Verified Allergy, Unknown, 04/16/19) diphenhydramine HCl (Verified Allergy, Unknown, 04/16/19) hydrochlorothiazide (Unverified Allergy, Unknown, 04/16/19) varenicline tartrate (Verified Allergy, Unknown, 04/16/19) Patient Home Medication List Home Medication List Reviewed: Yes Acetaminophen (Acetaminophen) 325 Mg Tablet, 650 MG PO Q4H PRN for PAIN-MILD, (Reported) Entered as Reported by: LLOYD CUEVAS on 04/01/18 0904 Albuterol Sulfate (Albuterol Sulfate) 2.5 Mg/0.5 Ml Vial.neb, 2.5 MG INH Q6H PRN for SHORTNESS OF BREATH, (Reported) Entered as Reported by: FARHAT MATA on 09/25/21 0939 Apixaban (Eliquis) 2.5 Mg Tablet, 2.5 MG PO BID, (Reported) Entered as Reported by: PATSY RODRIGUEZ on 06/19/20 0947 Aspirin (Aspirin) 81 Mg Tab.chew, 81 MG PO Q48H, (Reported) Entered as Reported by: PATSY RODRIGUEZ on 06/19/20 0947 Atorvastatin Calcium (Atorvastatin Calcium) 40 Mg Tablet, 40 MG PO HS, (Reported) Entered as Reported by: FARHAT MATA on 09/25/21 0936 Benzocaine (Oral Analgesic) 9 Gm Gel..gram., 1 APPLIC MM QID PRN for PAIN- BREAKTHROUGH, (Reported) Entered as Reported by: PATSY RODRIGUEZ on 06/19/20 1001 Budesonide/Formoterol Fumarate (Symbicort 160-4.5 Mcg Inhaler) 10.2 Gm Hfa.aer.ad, 2 PUFF IH BID, (Reported) Entered as Reported by: JOSEE VELAZQUEZ on 05/14/16 1655 Bupropion HCl (Bupropion Xl) 150 Mg Tab.er.24h, 150 MG PO HS, (Reported) Entered as Reported by: FARHAT MATA on 09/25/21 0936 Cyclobenzaprine HCl (Cyclobenzaprine HCl) 5 Mg Tablet, 2.5 MG PO DAILY PRN for PAIN-BREAKTHROUGH, (Reported) Entered as Reported by: FARHAT MATA on 09/25/21 0936 Diltiazem HCl (Diltiazem 24Hr ER) 180 Mg Cap.er.24h, 360 MG PO DAILY Prescribed by: ASYA BURLESON on 09/29/21 1216 Furosemide (Furosemide) 40 Mg Tablet, 40 MG PO DAILY Prescribed by: ASYA BURLESON on 09/29/21 1216 Guaifenesin/Dextromethorphan (Robitussin Cough-Chest Dm Liq) 237 Ml Liquid, 5 ML PO Q4H PRN for COUGH, (Reported) Entered as Reported by: DAVID FIGUEROA on 04/17/19 0850 Hydrocodone/Acetaminophen (Hydrocodone-Acetamin 5-325 mg) 1 Each Tablet, 1 TAB PO Q4H PRN for PAIN-MODERATE (5-7) Prescribed by: NIK MCKEON on 10/07/21 1204 Lactobacillus Acidophilus (Acidophilus Lactobacilli) 1 Each Capsule, 1 EACH PO DAILY, (Reported) Entered as Reported by: FARHAT MATA on 09/25/21 0939 Lidocaine HCl (Lidocaine) 35 Gm Oint, 1 APPLIC TP BID PRN for PAIN-BREAKTHROUGH, (Reported) Entered as Reported by: FARHAT MATA on 09/25/21 0936 Mag Hydrox/Al Hydrox/Simeth (Antacid Anti-Gas Liquid) 355 Ml Oral.susp, 30 ML PO Q4H PRN for INDIGESTION, (Reported) Entered as Reported by: FARHAT MATA on 09/25/21 0936 Mag Hydrox/Aluminum Hyd/Simeth (Maalox Advanced Suspension) 355 Ml Oral.susp, 30 ML PO DAILY PRN for CONSTIPATION-7TH LINE, (Reported) Entered as Reported by: DAVID FIGUEROA on 04/17/19 0850 Metoprolol Succinate (Metoprolol Succinate) 25 Mg Tab.er.24h, 25 MG PO HS, (Reported) Entered as Reported by: PATSY RODRIGUEZ on 06/19/20 0947 Mirabegron (Myrbetriq) 25 Mg Tab.er.24h, 25 MG PO DAILY, (Reported) Entered as Reported by: DAVID FIGUEROA on 04/17/19 0850 Nystatin (Nyamyc) 15 Gm Powder, 1 APPLIC TOP BID PRN for YEAST, (Reported) Entered as Reported by: FARHAT MATA on 09/25/21 0936 Oxycodone HCl/Acetaminophen (Oxycodone-Acetaminophen 5-325) 1 Each Tablet, 1 EACH PO Q6H PRN for PAIN-MODERATE Prescribed by: NIK MCKEON on 11/30/21 1206 Pantoprazole Sodium (Pantoprazole Sodium) 40 Mg Tablet.dr, 40 MG PO DAILY, (Reported) Entered as Reported by: DAVID FIGUEROA on 04/17/19 0850 Potassium Chloride (Klor-Con 10) 10 Meq Tablet.er, 10 MEQ PO DAILY@0700 Prescribed by: ASYA BURLESON on 09/29/21 1216 Prednisone (Prednisone) 20 Mg Tab, 50 MG PO DAILY@0700 Prescribed by: ASYA BURLESON on 09/29/21 1216 Prednisone (Prednisone) 10 Mg Tab.ds.pk, 10 MG PO DAILY Prescribed by: NIK MCKEON on 10/07/21 1203 Propylene Glycol (Systane Complete) 1.5 Ml Drops, 1 DROP OU TID, (Reported) Entered as Reported by: PATSY RODRIGUEZ on 06/19/20 0954 Sertraline HCl (Zoloft) 100 Mg Tablet, 100 MG PO DAILY, (Reported) Entered as Reported by: PATSY RODRIGUEZ on 06/19/20 0938 Tamsulosin HCl (Flomax) 0.4 Mg Cap, 0.4 MG PO DAILY, (Reported) Entered as Reported by: DAVID FIGUEROA on 11/27/17 1051 Tramadol HCl (Tramadol HCl) 50 Mg Tablet, 50 MG PO BID, (Reported) Entered as Reported by: FARHAT MATA on 09/25/21 0936 Trazodone HCl (Trazodone HCl) 50 Mg Tablet, 25 MG PO HS, (Reported) Entered as Reported by: LLOYD CUEVAS on 04/01/18 0923 Valacyclovir HCl (Valacyclovir) 1,000 Mg Tablet, 1,000 MG PO TID Prescribed by: NIK MCKEON on 10/07/21 1203 [Flavoxate] 100 TAB, 200 MG PO TID, (Reported) Entered as Reported by: FARHAT MATA on 09/25/21 0936 Review of Systems Review of Systems Constitutional: No fever EENTM: No blurred vision Respiratory: cough, short of breath Cardiovascular: No chest pain Gastrointestinal: No abdominal pain Genitourinary: no symptoms reported Musculoskeletal: no symptoms reported Skin: no symptoms reported Psychiatric/Neurological: No Symptoms Reported Hematologic/Lymphatic: No Symptoms Reported Immunological/Allergic: no symptoms reported All Other Systems Reviewed Negative Unless Noted: Yes Past Glhrfgb-Kmanyz-Vyclyj Hx Patient Social History Tobacco Use?: No Smoking Status: Never a Smoker Smokeless Tobacco Frequency: Never a User Use of E-Cig and/or Vaping dev: No Use of E-Cig and/or Vaping Tato: Never a User Substance use?: No Alcohol Use?: No Pt feels they are or have been: No Immunizations Up To Date Tetanus Booster (TDap): Unknown PED Vaccines UTD: No First/Initial COVID19 Vaccinat: NOV Second COVID19 Vaccination Robert: NOV Seasonal Allergies Seasonal Allergies: No Past Medical History Surgery/Hospitalization HX: pmh: uti, htn, osteoarthritis, dm 2, copd, disorder, gerd, hyperlipidemia, dysphagia, afib, cad, Surgeries: Yes Adenoidectomy, Appendectomy, Bladder Surgery, Cardiac, CABG, Gallbladder, Hysterectomy, Joint Replacement, Orthopedic, Tonsillectomy Respiratory: Yes Asthma, COPD Currently Using CPAP: No Currently Using BIPAP: No Cardiac: Yes (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, 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, Atrial Fibrillation, Coronary Artery Disease, High Cholesterol, Hypertension Neurological: Yes (HAD BRAIN SURGERY FOR ANEURYSM 2008, dysphagia) Reproductive Disorders: Yes Female Reproductive Disorders: Endometriosis HAND BENDER History: Hysterectomy Sexually Transmitted Disease: No Genitourinary: Yes (suprapubic catheter) UTI-Chronic Gastrointestinal: Yes Gastroesophageal Reflux, Chronic Constipation Musculoskeletal: Yes ( BILAT ROTATOR CUFF SURGERY) Degenerate Disk Disease, Arthritis, Chronic Back Pain Endocrine: Yes Diabetes, Non-Insulin dep Cataract Loss of Vision: Denies Hearing Impairment: Denies Cancer: No Psychosocial: Yes (panic disorder) Anxiety, Depression Integumentary: No Blood Disorders: No Adverse Reaction/Blood Tranf: No Family Medical History Cancer 09 SISTER Cancer of colon Cataract 03 MOTHER, Onset:Unknown Family history: Allergy 03 FATHER, Onset:Unknown 03 MOTHER, Onset:Unknown Family history: Arthritis 03 FATHER, Onset:Unknown 03 MOTHER, Onset:Unknown 09 SISTER, Onset:Unknown Family history: Cardiovascular disease 03 FATHER, Onset:Unknown 03 MOTHER, Onset:Unknown 09 BROTHER, Onset:Unknown 09 SISTER, Onset:Unknown Family history: Diabetes mellitus 03 MOTHER, Onset:Unknown Family history: Gastrointestinal disease 03 FATHER, Onset:Unknown Family history: Hypertension 03 MOTHER, Onset:Unknown Family history: Osteoporosis 03 MOTHER, Onset:Unknown Hearing loss 03 FATHER, Onset:Unknown Heart disease 03 FATHER, Onset:Unknown 03 MOTHER, Onset:Unknown 09 BROTHER, Onset:Unknown Hypercholesterolemia 03 MOTHER, Onset:Unknown Malignant neoplasm of lung 09 SISTER, Onset:Unknown Myocardial infarction 09 BROTHER, Onset:Unknown Parkinson's disease Stroke 03 FATHER, Onset:Unknown Thyroid disease No Family History of: Abdominal aortic aneurysm Tye's disease Alcoholism Aphasia Chest pain Congenital heart disease Congestive heart failure Cystic fibrosis Dementia Dysphagia Family history: Alzheimer's disease Family history: Asthma Family history: Breast disease Family history: Coronary thrombosis Family history: Glaucoma Family history: Thyroid disorder Headache Hereditary disease History of - anemia History of - disorder History of - respiratory disease History of drug abuse Human immunodeficiency virus (HIV) seropositivity Infertile Kidney disease Prostate cancer Psychotic disorder Seizure disorder Tuberculosis Visual impairment Heart Disease, Diabetes Physical Exam Vital Signs - First Documented 06/07/22 10:04 Temp 36.6 Pulse 105 Resp 17 B/P (MAP) 126/60 (82) Pulse Ox 99 O2 Delivery Nasal Cannula O2 Flow Rate 3.00 Capillary Refill : Less Than 3 Seconds Height: 5'2.00" Weight: 165lbs. 7.0oz. 74.303246vc; 32.00 BMI Method:Stated General Appearance: WD/WN, no apparent distress, other (Chronically ill- appearing) HEENT: PERRL/EOMI, normal ENT inspection, pharynx normal Neck: non-tender, full range of motion, supple, normal inspection Respiratory: chest non-tender, no accessory muscle use, crackles Cardiovascular: no edema, no murmur, tachycardia, irregularly irregular Gastrointestinal: normal bowel sounds, non tender, soft; No distended, No guarding Extremities: normal range of motion, non-tender, normal inspection, no pedal edema, no calf tenderness, normal capillary refill Neurologic/Psychiatric: no motor/sensory deficits, alert, normal mood/affect, oriented x 3 Skin: normal color, warm/dry Lymphatic: no adenopathy Progress/Results/Core Measures Suspected Sepsis SIRS Temperature: Pulse: 105 Respiratory Rate: 17 Laboratory Tests 06/07/22 10:12: White Blood Count 7.7 Blood Pressure 126 /60 Mean: 82 Laboratory Tests 06/07/22 10:12: Creatinine 0.75, INR Comment 1.1, Platelet Count 250, Total Bilirubin 0.3 Results/Orders Lab Results Laboratory Tests Test 06/07/22 10:12 Range/Units White Blood Count 7.7 4.3-11.0 10^3/uL Red Blood Count 3.64 L 3.80-5.11 10^6/uL Hemoglobin 9.4 L 11.5-16.0 g/dL Hematocrit 31 L 35-52 % Mean Corpuscular Volume 85 80-99 fL Mean Corpuscular Hemoglobin 26 25-34 pg Mean Corpuscular Hemoglobin Concent 30 L 32-36 g/dL Red Cell Distribution Width 19.6 H 10.0-14.5 % Platelet Count 250 130-400 10^3/uL Mean Platelet Volume 10.4 9.0-12.2 fL Immature Granulocyte % (Auto) 0 % Neutrophils (%) (Auto) 71 42-75 % Lymphocytes (%) (Auto) 13 12-44 % Monocytes (%) (Auto) 11 0-12 % Eosinophils (%) (Auto) 4 0-10 % Basophils (%) (Auto) 0 0-10 % Neutrophils # (Auto) 5.5 1.8-7.8 10^3/uL Lymphocytes # (Auto) 1.0 1.0-4.0 10^3/uL Monocytes # (Auto) 0.8 0.0-1.0 10^3/uL Eosinophils # (Auto) 0.3 0.0-0.3 10^3/uL Basophils # (Auto) 0.0 0.0-0.1 10^3/uL Immature Granulocyte # (Auto) 0.0 0.0-0.1 10^3/uL Prothrombin Time 14.8 H 12.2-14.7 SEC INR Comment 1.1 0.8-1.4 Activated Partial Thromboplast Time 35 24-35 SEC Sodium Level 137 135-145 MMOL/L Potassium Level 4.0 3.6-5.0 MMOL/L Chloride Level 100 98-107 MMOL/L Carbon Dioxide Level 25 21-32 MMOL/L Anion Gap 12 5-14 MMOL/L Blood Urea Nitrogen 14 7-18 MG/DL Creatinine 0.75 0.60-1.30 MG/DL Estimat Glomerular Filtration Rate 78 BUN/Creatinine Ratio 19 Glucose Level 138 H 70-105 MG/DL Calcium Level 8.9 8.5-10.1 MG/DL Corrected Calcium 9.1 8.5-10.1 MG/DL Magnesium Level 1.8 1.6-2.4 MG/DL Total Bilirubin 0.3 0.1-1.0 MG/DL Aspartate Amino Transf (AST/SGOT) 14 5-34 U/L Alanine Aminotransferase (ALT/SGPT) 9 0-55 U/L Alkaline Phosphatase 62 40-136 U/L Troponin I < 0.028 <0.028 NG/ML B-Type Natriuretic Peptide 418.3 H <100.0 PG/ML Total Protein 6.8 6.4-8.2 GM/DL Albumin 3.8 3.2-4.5 GM/DL My Orders Orders - GEORGIE PRUETT MD Cbc With Automated Diff (06/07/22 10:13) Magnesium (06/07/22 10:13) Chest 1 View, Ap/Pa Only (06/07/22 10:13) Ekg Tracing (06/07/22 10:13) Comprehensive Metabolic Panel (06/07/22 10:13) Protime With Inr (06/07/22 10:13) Partial Thromboplastin Time (06/07/22 10:13) O2 (06/07/22 10:13) Monitor-Rhythm Ecg Trace Only (06/07/22 10:13) Ed Iv/Invasive Line Start (06/07/22 10:13) Bnp Pollo (06/07/22 10:13) Troponin I Peach (06/07/22 10:13) Dexamethasone Injection (Decadron Injec (06/07/22 10:15) Albuterol Inhaler (Albuterol) (06/07/22 10:13) Bebtelovimab (Bebtelovimab) (06/07/22 10:30) Nursing Communication (Order) (06/07/22 10:17) Ns Iv 500 Ml (Sodium Chloride 0.9%) (06/07/22 10:26) Diltiazem Cd 24 Hr Capsule (Cardizem Cd (06/07/22 10:26) Furosemide Injection (Lasix Injection) (06/07/22 11:00) Medications Given in ED Current Medications Medications Dose Ordered Sig/Kervin Route Start Time Stop Time Status Last Admin Dose Admin Bebtelovimab 175 mg ONCE ONCE IV 06/07/22 10:30 06/07/22 10:31 DC 06/07/22 10:45 175 MG Dexamethasone Sodium Phosphate 8 mg ONCE ONCE IV 06/07/22 10:15 06/07/22 10:16 DC 06/07/22 10:45 8 MG Furosemide 40 mg ONCE ONCE IVP 06/07/22 11:00 06/07/22 11:01 DC 06/07/22 10:59 40 MG Vital Signs/I&O 06/07/22 06/07/22 06/07/22 10:04 10:04 10:04 Temp 36.6 Pulse 105 Resp 17 B/P (MAP) 126/60 (82) Pulse Ox 99 99 O2 Delivery Nasal Cannula Nasal Cannula Nasal Cannula O2 Flow Rate 3.00 3.00 3.00 Capillary Refill : Less Than 3 Seconds Blood Pressure Mean: 82 Progress Note : Progress Note 86-year-old female with above history coming in due to feeling short of breath. ABCs were intact and vitals are stable on presentation although she was mildly tachycardic in A. fib with RVR with a heart rate around 110, goes down to the 90s at times. I turned her oxygen down to her baseline 3 L and it stayed around 98%. Because she is not on an increase in oxygen, has indications for COVID monoclonal antibody therapy, and has no contraindications at this time, we treated her with a dose of Bebtelivumib. I discussed with the patient that there is is under EUA, and she was agreeable to this. She was also given albuterol, and steroids given her history of COPD. Initially with her heart rate being elevated started some fluids, but just after she had received less than 10 cc of fluid, her chest x-ray was performed and it did show some pulmonary vascular congestion, edema, and cardiomegaly. Stop the fluids at that time and gave her a dose of Lasix because I think it is more likely she is volume overloaded. Was also given a dose of p.o. diltiazem to help with her A. fib rate control. On reassessment, the patient was feeling better, heart rate in the 90s and better controlled. She tolerated the monoclonal antibody treatment without difficulty. Troponin is undetectable, BNP slightly elevated which is expected based on the chest x-ray. She maintain an oxygen saturation greater than 98% for her entire visit while on her baseline O2. I believe she is stable for discharge with outpatient follow-up. She was sent home with strict return precautions ECG Initial ECG Impression Date: Jun 07, 2022 Initial ECG Impression Time: 10:10 Initial ECG Rate: 116 Initial ECG Rhythm: S.Tach Comment Narrow QRS, normal axis, T wave inversions in the inferior leads and lateral l lei, A. fib with RVR Diagnostic Imaging Diagonstic Imaging: Xray Plain Films/CT/US/NM/MRI: chest Comments [facility]. [place], [place] NAME: JULES REYES [facility] REC#: [id number] PT STATUS: REG ER : 1935 PHYSICIAN: GEORGIE PRUETT MD ADMIT DATE: 06/07/22/ER Draft Date of Exam:06/07/22 CHEST 1 VIEW, AP/PA ONLY INDICATION: Covid positive, shortness of breath. Frontal chest obtained at 10:29 a.m. and compared with 09/23/2021. FINDINGS: Prominent cardiomegaly is again noted. There is central vascular congestion with some interstitial edema, the edema appears to be perhaps slightly improved compared with 09/23/2021. There is no new consolidation or pneumothorax or pleural fluid. IMPRESSION: Cardiomegaly and central vascular congestion with some edema, the edema appears to be improved compared to the previous study. There is no new consolidation or pleural fluid. Dictated on workstation # [id number] Dict: 06/07/22 1035 Trans: 06/07/22 1040 [id number] Interpreted by: WALLY POND MD Electronically signed by: Departure Impression Primary Impression: COVID-19 Additional Impressions: Respiratory failure Qualified Codes: J96.11 - Chronic respiratory failure with hypoxia Pulmonary edema Qualified Codes: J81.0 - Acute pulmonary edema Disposition: HOME, SELF-CARE Condition: Stable Departure-Patient Inst. Decision time for Depature: 11:48 Referrals: SHANIQUE VEGA MD (PCP/Family) Primary Care Physician Patient Instructions: COVID-19 ED, Bebtelovimab FDA Fact Sheet Add. Discharge Instructions: Your chest x-ray did show a little extra fluid. We gave you an extra dose of IV Lasix to help bring the fluid off your lungs. Gave you the monoclonal antibody treatment call Bebtelovimab which does help treat COVID. It is only a one-time dose that you will not need any other doses. It is okay to turn her oxygen up a little bit if you are feeling short of breath. Come back to the ER if your oxygen saturation will not go up despite turning up your oxygen. GEORGIE PRUETT MD Jun 07, 2022 10:26
[2022-06-07] MEDS ORDERED: BEBTELOVIMAB 175 MG/2 ML VIAL IV ONE (10:30)
--- NOTE | 2022-06-07 10:41 | Diagnostic Imaging Report ---
INDICATION: Covid positive, shortness of breath. Frontal chest obtained at 10:29 a.m. and compared with 09/23/2021. FINDINGS: Prominent cardiomegaly is again noted. There is central vascular congestion with some interstitial edema, the edema appears to be perhaps slightly improved compared with 09/23/2021. There is no new consolidation or pneumothorax or pleural fluid. IMPRESSION: Cardiomegaly and central vascular congestion with some edema, the edema appears to be improved compared to the previous study. There is no new consolidation or pleural fluid. Dictated by: Dictated on workstation # [id number]
[2022-06-07] MEDS ORDERED: FUROSEMIDE 40 MG/4 ML INJ (LASIX) IVP ONE (11:00)
[2022-06-07 11:03] LABS: BASOPHILS % (AUTO) 0 % (0-10); EOSINOPHILS # (AUTO) 0.3 10^3/uL (0.0-0.3); EOSINOPHILS % (AUTO) 4 % (0-10); HEMATOCRIT 31 % (35-52); HEMOGLOBIN 9.4 g/dL (11.5-16.0); LYMPHOCYTES % (AUTO) 13 % (12-44); MEAN CORPUSCULAR HEMOGLOBIN 26 pg (25-34); MEAN CORPUSCULAR HGB CONC 30 g/dL (32-36); MEAN CORPUSCULAR VOLUME 85 fL (80-99); MEAN PLATELET VOLUME 10.4 fL (9.0-12.2); MONOCYTES # (AUTO) 0.8 10^3/uL (0.0-1.0); MONOCYTES % (AUTO) 11 % (0-12); NEUTROPHILS # (AUTO) 5.5 10^3/uL (1.8-7.8); NEUTROPHILS % (AUTO) 71 % (42-75); PLATELET COUNT 250 10^3/uL (130-400); WHITE BLOOD COUNT 7.7 10^3/uL (4.3-11.0)
[2022-06-07 11:14] LABS: ALBUMIN 3.8 GM/DL (3.2-4.5); INR 1.1 (0.8-1.4); PROTHROMBIN TIME PATIENT 14.8 SEC (12.2-14.7)
[2022-06-07 11:15] LABS: CALCIUM 8.9 MG/DL (8.5-10.1)
[2022-06-07 11:17] LABS: TOTAL PROTEIN 6.8 GM/DL (6.4-8.2)
[2022-06-07 11:19] LABS: BILIRUBIN,TOTAL 0.3 MG/DL (0.1-1.0)
[2022-06-07 11:20] LABS: CREATININE SERUM 0.75 MG/DL (0.60-1.30)
[2022-06-07 11:23] LABS: MAGNESIUM 1.8 MG/DL (1.6-2.4)
[2022-06-07 13:35] VITALS: BP 133/74
== END 2022-06-07 13:35 | disposition home or self-care (01) ==
LOC: EDUNIT# 10:03 → ER 10:04
DX: U07.1 COVID-19 (principal); J96.90 Respiratory failure, unspecified, unspecified whether with hypoxia or hypercapnia; J81.1 Chronic pulmonary edema; J44.9 Chronic obstructive pulmonary disease, unspecified; I25.10 Atherosclerotic heart disease of native coronary artery without angina pectoris; Z73.0 Burn-out; Z99.81 Dependence on supplemental oxygen; Z79.01 Long term (current) use of anticoagulants
CPT/HCPCS: 36415; 71045; 80053; 83735; 83880; 84484; 85025; 85610; 85730; 93005; 93041; 96374; 96375

== ENCOUNTER 2022-10-20 10:52 | Emergency (ER) | payer MEDICARE, MEDICAID ==
[~2022-10-20] VITALS: Ht 157 cm; Wt 86.0 kg
[~2022-10-20 10:52] MED LIST changes: +ALBU8.5H6 IH
[2022-10-20] MEDS ORDERED: CEFEPIME INJECTION 1,000 MG in NS (IVPB) 50 ML IV ONE (11:30)
[2022-10-20] MEDS ORDERED: NS IV 500 ML 500 ML IV SCH (11:30)
[2022-10-20 11:35] LABS: BASOPHILS % (AUTO) 0 % (0-10); EOSINOPHILS # (AUTO) 0.1 10^3/uL (0.0-0.3); EOSINOPHILS % (AUTO) 1 % (0-10); HEMATOCRIT 27 % (35-52); HEMOGLOBIN 7.8 g/dL (11.5-16.0); LYMPHOCYTES % (AUTO) 11 % (12-44); MEAN CORPUSCULAR HEMOGLOBIN 21 pg (25-34); MEAN CORPUSCULAR HGB CONC 29 g/dL (32-36); MEAN CORPUSCULAR VOLUME 72 fL (80-99); MEAN PLATELET VOLUME 9.8 fL (9.0-12.2); MONOCYTES # (AUTO) 0.7 10^3/uL (0.0-1.0); MONOCYTES % (AUTO) 9 % (0-12); NEUTROPHILS # (AUTO) 6.6 10^3/uL (1.8-7.8); NEUTROPHILS % (AUTO) 78 % (42-75); PLATELET COUNT 323 10^3/uL (130-400); WHITE BLOOD COUNT 8.5 10^3/uL (4.3-11.0)
[2022-10-20 11:37] LABS: ALBUMIN 3.4 GM/DL (3.2-4.5)
[2022-10-20 11:38] LABS: CHLORIDE 98 MMOL/L (98-107); POTASSIUM 3.9 MMOL/L (3.6-5.0); SODIUM 135 MMOL/L (135-145)
[2022-10-20 11:39] LABS: CALCIUM 8.7 MG/DL (8.5-10.1)
[2022-10-20 11:40] LABS: GLUCOSE 133 MG/DL (70-105); INR 1.3 (0.8-1.4); PROTHROMBIN TIME PATIENT 17.1 SEC (12.2-14.7); TOTAL PROTEIN 6.7 GM/DL (6.4-8.2)
[2022-10-20 11:41] LABS: CARBON DIOXIDE 23 MMOL/L (21-32)
[2022-10-20 11:42] LABS: BILIRUBIN,TOTAL 0.4 MG/DL (0.1-1.0)
--- NOTE | 2022-10-20 11:42 | Diagnostic Imaging Report ---
INDICATION: Increased shortness of air, recent diagnosis of pneumonia. TECHNIQUE: Single view chest 11:36 AM. CORRELATION STUDY: 06/07/2022 FINDINGS: Poststernotomy changes. Heart size remains enlarged. Pulmonary vascular congestion perihilar edema is present. Diffusely prominent interstitial markings throughout both lung saucedo overall slightly increased. No definitive infiltrate. Question small effusions. IMPRESSION: 1. Findings of congestive heart failure. Overall appears slightly more prominent compared to prior. Dictated by: Dictated on workstation # [id number]
[2022-10-20 11:43] LABS: ALKALINE PHOSPHATASE 75 U/L (40-136)
[2022-10-20 11:44] LABS: GFR ESTIMATED 85
[2022-10-20 11:45] LABS: BUN/CREATININE RATIO 14
[2022-10-20 11:46] LABS: ALANINE AMINOTRANSFERASE 6 U/L (0-55)
--- NOTE | 2022-10-20 11:48 | ED Dyspnea ---
General Chief Complaint: Respiratory Problems Stated Complaint: DIFF BREATHING Nursing Triage Note: [facility] INCREASED [facility]A. RECENT DX OF PNEUMONIA. PT WEARS OXYGEN AT 2.5L AT HOME. History of Present Illness Date Seen by Provider: Oct 20, 2022 Time Seen by Provider: 11:10 Initial Comments Patient is an 86-year-old female who presents to the emergency department for evaluation of increased shortness of breath that began yesterday. Patient reportedly was diagnosed with pneumonia after she had a chest x-ray yesterday at her halfway. She was placed on doxycycline and the first dose was this morning. She states she has had worsening shortness of breath since that time. She is chronically on 4-1/2 L of oxygen via nasal cannula. This has not had to be increased. Patient states she has had increased exertional intolerance. Patient states she also has a sacral pressure ulcer that is being treated with barrier cream at her facility. She states she has also had a nonproductive cough. Denies any chest pain. No known recent fever. No known recent sick contacts. Allergies and Home Medications Allergies Coded Allergies: Sulfa (Sulfonamide Antibiotics) (Verified Allergy, Unknown, 04/16/19) diphenhydramine HCl (Verified Allergy, Unknown, 04/16/19) hydrochlorothiazide (Unverified Allergy, Unknown, 04/16/19) varenicline tartrate (Verified Allergy, Unknown, 04/16/19) Patient Home Medication List Home Medication List Reviewed: Yes Acetaminophen (Acetaminophen) 325 Mg Tablet, 650 MG PO Q4H PRN for PAIN-MILD, (Reported) Entered as Reported by: LLOYD CUEVAS on 04/01/18 0904 Albuterol Sulfate (Albuterol Sulfate) 2.5 Mg/0.5 Ml Vial.neb, 2.5 MG INH Q6H PRN for SHORTNESS OF BREATH, (Reported) Entered as Reported by: FARHAT MATA on 09/25/21 0939 Apixaban (Eliquis) 2.5 Mg Tablet, 2.5 MG PO BID, (Reported) Entered as Reported by: PATSY RODRIGUEZ on 06/19/20 0947 Aspirin (Aspirin) 81 Mg Tab.chew, 81 MG PO Q48H, (Reported) Entered as Reported by: PATSY RODRIGUEZ on 06/19/20 0947 Atorvastatin Calcium (Atorvastatin Calcium) 40 Mg Tablet, 40 MG PO HS, (Reported) Entered as Reported by: FARHAT MATA on 09/25/21 0936 Benzocaine (Oral Analgesic) 9 Gm Gel..gram., 1 APPLIC MM QID PRN for PAIN-BR EALUIS ENRIQUEHROUGH, (Reported) Entered as Reported by: PATSY RODRIGUEZ on 06/19/20 1001 Budesonide/Formoterol Fumarate (Symbicort 160-4.5 Mcg Inhaler) 10.2 Gm Hfa.aer.ad, 2 PUFF IH BID, (Reported) Entered as Reported by: JOSEE VELAZQUEZ on 05/14/16 1655 Bupropion HCl (Bupropion Xl) 150 Mg Tab.er.24h, 150 MG PO HS, (Reported) Entered as Reported by: FARHAT MATA on 09/25/21 0936 Cefadroxil (Cefadroxil) 500 Mg Capsule, 500 MG PO BID Prescribed by: Garrison Montgomery on 10/20/22 1259 Cyclobenzaprine HCl (Cyclobenzaprine HCl) 5 Mg Tablet, 2.5 MG PO DAILY PRN for PAIN-BREAKTHROUGH, (Reported) Entered as Reported by: FARHAT MATA on 09/25/21 0936 Diltiazem HCl (Diltiazem 24Hr ER) 180 Mg Cap.er.24h, 360 MG PO DAILY Prescribed by: ASYA BURLESON on 09/29/21 1216 Furosemide (Furosemide) 40 Mg Tablet, 40 MG PO DAILY Prescribed by: ASYA BURLESON on 09/29/21 1216 Guaifenesin/Dextromethorphan (Robitussin Cough-Chest Dm Liq) 237 Ml Liquid, 5 ML PO Q4H PRN for COUGH, (Reported) Entered as Reported by: DAVID FIGUEROA on 04/17/19 0850 Hydrocodone/Acetaminophen (Hydrocodone-Acetamin 5-325 mg) 1 Each Tablet, 1 TAB PO Q4H PRN for PAIN-MODERATE (5-7) Prescribed by: NIK MCKEON on 10/07/21 1204 Lactobacillus Acidophilus (Acidophilus Lactobacilli) 1 Each Capsule, 1 EACH PO DAILY, (Reported) Entered as Reported by: FARHAT MATA on 09/25/21 0939 Lidocaine HCl (Lidocaine) 35 Gm Oint, 1 APPLIC TP BID PRN for PAIN-BREAKTHROUGH, (Reported) Entered as Reported by: FARHAT MATA on 09/25/21 0936 Mag Hydrox/Al Hydrox/Simeth (Antacid Anti-Gas Liquid) 355 Ml Oral.susp, 30 ML PO Q4H PRN for INDIGESTION, (Reported) Entered as Reported by: FARHAT MATA on 09/25/21 0936 Mag Hydrox/Aluminum Hyd/Simeth (Maalox Advanced Suspension) 355 Ml Oral.susp, 30 ML PO DAILY PRN for CONSTIPATION-7TH LINE, (Reported) Entered as Reported by: DAVID FIGUEROA on 04/17/19 0850 Metoprolol Succinate (Metoprolol Succinate) 25 Mg Tab.er.24h, 25 MG PO HS, (Reported) Entered as Reported by: PATSY RODRIGUEZ on 06/19/20 0947 Mirabegron (Myrbetriq) 25 Mg Tab.er.24h, 25 MG PO DAILY, (Reported) Entered as Reported by: DAVID FIGUEROA on 04/17/19 0850 Nystatin (Nyamyc) 15 Gm Powder, 1 APPLIC TOP BID PRN for YEAST, (Reported) Entered as Reported by: FARHAT MATA on 09/25/21 0936 Oxycodone HCl/Acetaminophen (Oxycodone-Acetaminophen 5-325) 1 Each Tablet, 1 EACH PO Q6H PRN for PAIN-MODERATE Prescribed by: NIK MCKEON on 11/30/21 1206 Pantoprazole Sodium (Pantoprazole Sodium) 40 Mg Tablet.dr, 40 MG PO DAILY, (Reported) Entered as Reported by: DAVID FIGUEROA on 04/17/19 0850 Potassium Chloride (Klor-Con 10) 10 Meq Tablet.er, 10 MEQ PO DAILY@0700 Prescribed by: ASYA BURLESON on 09/29/21 1216 Prednisone (Prednisone) 20 Mg Tab, 50 MG PO DAILY@0700 Prescribed by: ASYA BURLESON on 09/29/21 1216 Prednisone (Prednisone) 10 Mg Tab.ds.pk, 10 MG PO DAILY Prescribed by: NIK MCKEON on 10/07/21 1203 Propylene Glycol (Systane Complete) 1.5 Ml Drops, 1 DROP OU TID, (Reported) Entered as Reported by: PATYS RODRIGUEZ on 06/19/20 0954 Sertraline HCl (Zoloft) 100 Mg Tablet, 100 MG PO DAILY, (Reported) Entered as Reported by: PATSY RODRIGUEZ on 06/19/20 0938 Tamsulosin HCl (Flomax) 0.4 Mg Cap, 0.4 MG PO DAILY, (Reported) Entered as Reported by: DAVID FIGUEROA on 11/27/17 1051 Tramadol HCl (Tramadol HCl) 50 Mg Tablet, 50 MG PO BID, (Reported) Entered as Reported by: FARHAT MATA on 09/25/21 0936 Trazodone HCl (Trazodone HCl) 50 Mg Tablet, 25 MG PO HS, (Reported) Entered as Reported by: LLOYD CUEVAS on 04/01/18 0923 Valacyclovir HCl (Valacyclovir) 1,000 Mg Tablet, 1,000 MG PO TID Prescribed by: NIK MCKEON on 10/07/21 1203 [Flavoxate] 100 TAB, 200 MG PO TID, (Reported) Entered as Reported by: FARHAT MATA on 09/25/21 0936 Review of Systems Review of Systems Constitutional: no symptoms reported EENTM: no symptoms reported Respiratory: see HPI, cough, short of breath Cardiovascular: no symptoms reported Gastrointestinal: no symptoms reported Genitourinary: no symptoms reported Musculoskeletal: no symptoms reported Skin: no symptoms reported Psychiatric/Neurological: No Symptoms Reported Past Ewuzxvi-Abqoaw-Qqhcos Hx Patient Social History Smoking Status: Former Smoker Substance use?: No Alcohol Use?: No Immunizations Up To Date Tetanus Booster (TDap): Unknown PED Vaccines UTD: No First/Initial COVID19 Vaccinat: NOV Second COVID19 Vaccination Robert: NOV Seasonal Allergies Seasonal Allergies: No Past Medical History Surgery/Hospitalization HX: pmh: uti, htn, osteoarthritis, dm 2, copd, disorder, gerd, hyperlipidemia, dysphagia, afib, cad, Surgeries: Yes Adenoidectomy, Appendectomy, Bladder Surgery, Cardiac, CABG, Gallbladder, Hysterectomy, Joint Replacement, Orthopedic, Tonsillectomy Respiratory: Yes Asthma, COPD Currently Using CPAP: No Currently Using BIPAP: No Cardiac: Yes (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, 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, Atrial Fibrillation, Coronary Artery Disease, High Cholesterol, Hy pertension Neurological: Yes (HAD BRAIN SURGERY FOR ANEURYSM 2008, dysphagia) Reproductive Disorders: Yes Female Reproductive Disorders: Endometriosis [employer]ER History: Hysterectomy Sexually Transmitted Disease: No Genitourinary: Yes (suprapubic catheter) UTI-Chronic Gastrointestinal: Yes Gastroesophageal Reflux, Chronic Constipation Musculoskeletal: Yes ( BILAT ROTATOR CUFF SURGERY) Degenerate Disk Disease, Arthritis, Chronic Back Pain Endocrine: Yes Diabetes, Non-Insulin dep Cataract Loss of Vision: Denies Hearing Impairment: Denies Cancer: No Psychosocial: Yes (panic disorder) Anxiety, Depression Integumentary: No Blood Disorders: No Adverse Reaction/Blood Tranf: No Family Medical History Cancer 09 SISTER Cancer of colon Cataract 03 MOTHER, Onset:Unknown Family history: Allergy 03 FATHER, Onset:Unknown 03 MOTHER, Onset:Unknown Family history: Arthritis 03 FATHER, Onset:Unknown 03 MOTHER, Onset:Unknown 09 SISTER, Onset:Unknown Family history: Cardiovascular disease 03 FATHER, Onset:Unknown 03 MOTHER, Onset:Unknown 09 BROTHER, Onset:Unknown 09 SISTER, Onset:Unknown Family history: Diabetes mellitus 03 MOTHER, Onset:Unknown Family history: Gastrointestinal disease 03 FATHER, Onset:Unknown Family history: Hypertension 03 MOTHER, Onset:Unknown Family history: Osteoporosis 03 MOTHER, Onset:Unknown Hearing loss 03 FATHER, Onset:Unknown Heart disease 03 FATHER, Onset:Unknown 03 MOTHER, Onset:Unknown 09 BROTHER, Onset:Unknown Hypercholesterolemia 03 MOTHER, Onset:Unknown Malignant neoplasm of lung 09 SISTER, Onset:Unknown Myocardial infarction 09 BROTHER, Onset:Unknown Parkinson's disease Stroke 03 FATHER, Onset:Unknown Thyroid disease No Family History of: Abdominal aortic aneurysm [place]'s disease Alcoholism Aphasia Chest pain Congenital heart disease Congestive heart failure Cystic fibrosis Dementia Dysphagia Family history: Alzheimer's disease Family history: Asthma Family history: Breast disease Family history: Coronary thrombosis Family history: Glaucoma Family history: Thyroid disorder Headache Hereditary disease History of - anemia History of - disorder History of - respiratory disease History of drug abuse Human immunodeficiency virus (HIV) seropositivity Infertile Kidney disease Prostate cancer Psychotic disorder Seizure disorder Tuberculosis Visual impairment Heart Disease, Diabetes Physical Exam Vital Signs Vital Signs - First Documented 10/20/22 10:52 Temp 36.2 Pulse 100 Resp 16 B/P (MAP) 82/60 (67) Pulse Ox 99 O2 Delivery Room Air O2 Flow Rate 4.50 Capillary Refill : Less Than 3 Seconds Height, Weight, BMI Height: 5'2.00" Weight: 165lbs. 7.0oz. [id number]; 34.00 BMI Method:Stated General Appearance: No Apparent Distress, WD/WN HEENT: PERRL/EOMI, TMs Normal, Normal ENT Inspection, Pharynx Normal Neck: Full Range of Motion, Normal Inspection, Non Tender, Supple Respiratory: No Accessory Muscle Use, No Respiratory Distress, Expiration, Wheezing Cardiovascular: Irregularly Irregular Gastrointestinal: Non Tender, Soft Rectal: Normal Exam Extremity: Non Tender, No Calf Tenderness Neurologic/Psychiatric: Alert, Oriented x3, No Motor/Sensory Deficits, Normal Mood/Affect Skin: Normal Color, Warm/Dry Focused Exam Lactate Level 10/20/22 11:15: Lactic Acid Level 0.63 Lactic Acid Level Laboratory Tests Test 10/20/22 11:15 Lactic Acid Level 0.63 MMOL/L (0.50-2.00) Progress/Results/Core Measures Results/Orders Lab Results Laboratory Tests Test 10/20/22 11:15 10/20/22 11:45 10/20/22 11:52 Range/Units White Blood Count 8.5 4.3-11.0 10^3/uL Red Blood Count 3.71 L 3.80-5.11 10^6/uL Hemoglobin 7.8 L 11.5-16.0 g/dL Hematocrit 27 L 35-52 % Mean Corpuscular Volume 72 L 80-99 fL Mean Corpuscular Hemoglobin 21 L 25-34 pg Mean Corpuscular Hemoglobin Concent 29 L 32-36 g/dL Red Cell Distribution Width 20.3 H 10.0-14.5 % Platelet Count 323 130-400 10^3/uL Mean Platelet Volume 9.8 9.0-12.2 fL Immature Granulocyte % (Auto) 1 % Neutrophils (%) (Auto) 78 H 42-75 % Lymphocytes (%) (Auto) 11 L 12-44 % Monocytes (%) (Auto) 9 0-12 % Eosinophils (%) (Auto) 1 0-10 % Basophils (%) (Auto) 0 0-10 % Neutrophils # (Auto) 6.6 1.8-7.8 10^3/uL Lymphocytes # (Auto) 1.0 1.0-4.0 10^3/uL Monocytes # (Auto) 0.7 0.0-1.0 10^3/uL Eosinophils # (Auto) 0.1 0.0-0.3 10^3/uL Basophils # (Auto) 0.0 0.0-0.1 10^3/uL Immature Granulocyte # (Auto) 0.1 0.0-0.1 10^3/uL Prothrombin Time 17.1 H 12.2-14.7 SEC INR Comment 1.3 0.8-1.4 Activated Partial Thromboplast Time 44 H 24-35 SEC Sodium Level 135 135-145 MMOL/L Potassium Level 3.9 3.6-5.0 MMOL/L Chloride Level 98 98-107 MMOL/L Carbon Dioxide Level 23 21-32 MMOL/L Anion Gap 14 5-14 MMOL/L Blood Urea Nitrogen 10 7-18 MG/DL Creatinine 0.70 0.60-1.30 MG/DL Estimat Glomerular Filtration Rate 85 BUN/Creatinine Ratio 14 Glucose Level 133 H 70-105 MG/DL Lactic Acid Level 0.63 0.50-2.00 MMOL/L Calcium Level 8.7 8.5-10.1 MG/DL Corrected Calcium 9.2 8.5-10.1 MG/DL Total Bilirubin 0.4 0.1-1.0 MG/DL Aspartate Amino Transf (AST/SGOT) 15 5-34 U/L Alanine Aminotransferase (ALT/SGPT) 6 0-55 U/L Alkaline Phosphatase 75 40-136 U/L Troponin I < 0.028 <0.028 NG/ML Total Protein 6.7 6.4-8.2 GM/DL Albumin 3.4 3.2-4.5 GM/DL Urine Color YELLOW Urine Clarity CLOUDY Urine pH 6.0 5-9 Urine Specific [place] 1.015 L 1.016-1.022 Urine Protein NEGATIVE NEGATIVE Urine Glucose (UA) NEGATIVE NEGATIVE Urine Ketones NEGATIVE NEGATIVE Urine Nitrite POSITIVE H NEGATIVE Urine Bilirubin NEGATIVE NEGATIVE Urine Urobilinogen 0.2 < = 1.0 MG/DL Urine Leukocyte Esterase 3+ H NEGATIVE Urine RBC (Auto) 1+ H NEGATIVE Urine RBC 0-2 /HPF Urine WBC 10-25 H /HPF Urine Squamous Epithelial Cells NONE /HPF Urine Renal Epithelial Cells NONE /HPF Urine Crystals PRESENT H /LPF Urine Amorphous Sediment LARGE VI URATES H /LPF Urine Bacteria LARGE H /HPF Urine Casts NONE /LPF Urine Mucus NEGATIVE /LPF Urine Culture Indicated CULTURE PENDING Influenza Type A (RT-PCR) Not Detected Not Detecte Influenza Type B (RT-PCR) Not Detected Not Detecte SARS-CoV-2 RNA (RT-PCR) Not Detected Not Detecte My Orders Orders - GARRISON MONTGOMERY [employer] Cbc With Automated Diff (10/20/22 11:19) Comprehensive Metabolic Panel (10/20/22 11:19) Blood Culture (10/20/22 11:19) Sputum Culture (10/20/22 11:19) Urinalysis (10/20/22 11:19) Urine Culture (10/20/22 11:19) Protime With Inr (10/20/22 11:19) Partial Thromboplastin Time (10/20/22 11:19) Chest 1 View, Ap/Pa Only (10/20/22 11:19) Ed Iv/Invasive Line Start (10/20/22 11:19) Ed Iv/Invasive Line Start (10/20/22 11:19) Ekg Tracing (10/20/22 11:19) Troponin I Pollo (10/20/22 11:19) Vital Signs Adult Sepsis Patie Q15M (10/20/22 11:19) O2 (10/20/22 11:19) Remove Rings In Anticipation O (10/20/22 11:19) Lactic Acid Analyzer (10/20/22 11:19) Cefepime Injection (Maxipime Injection) (10/20/22 11:30) Ns Iv 500 Ml (Sodium Chloride 0.9%) (10/20/22 11:30) Covid 19 Inhouse Test (10/20/22 11:43) Influenza A And B By Pcr (10/20/22 11:43) Isolation Central Supply Req (10/20/22 11:43) Albuterol/Ipra Inhalation Soln (Duoneb I (10/20/22 12:00) Svn Small Volume Nebulizer (10/20/22 11:56) Medications Given in ED Current Medications Medications Dose Ordered Sig/Kervin Route Start Time Stop Time Status Last Admin Dose Admin Albuterol/ Ipratropium 3 ml ONCE ONCE INH 10/20/22 12:00 10/20/22 12:01 DC 10/20/22 12:04 3 ML Cefepime HCl 1000 mg/Sodium Chloride 50 ml @ 100 mls/hr ONCE ONCE IV 10/20/22 11:30 10/20/22 11:59 DC 10/20/22 11:51 100 MLS/HR Vital Signs/I&O 12/02/0610/20/22 10/20/22 10/20/22 10:52 10:52 11:10 13:20 Temp 36.2 36.2 Pulse 100 99 Resp 16 16 B/P (MAP) 82/60 (67) 111/94 Pulse Ox 99 99 O2 Delivery Room Air Nasal Cannula Nasal Cannula Nasal Cannula O2 Flow Rate 4.50 4.50 4.50 Blood Pressure Mean: 67 Progress Progress Note : Progress Note Patient is nontoxic and well-hydrated on exam. She does have expiratory wheezing noted in all lung saucedo. She is not hypoxic on her home level of oxygen. No significant lower extremity edema noted. A DuoNeb was given with minimal improvement. Patient's blood pressure has been soft and thus a dose of diuretic IV was not given. Family states patient's Lasix has been increased recently due to some dependent edema in both extremities. They state after the increase her swelling improved. Chest x-ray did not reveal any acute infiltrates. Urinalysis notable for pyuria and bacteriuria consistent with UTI. Patient does have a long-term indwelling Askew catheter. She states she commonly has UTIs. Laboratory evaluation is otherwise largely unremarkable other than some anemia. Blood and urine cultures were obtained and are pending. Lactic acid was within normal limits. This appears chronic based on review of the EMR and patient states that she has had anemia for a long time. I had a lengthy discussion with family regarding disposition. There are no hard and fast admission criteria met at this time. Both patient and her children are comfortable with her returning to her halfway facility at this time. I gave them very strict return precautions and recommendations for close follow-up with PCP. They verbalized understanding. Departure Impression Primary Impression: Shortness of breath Additional Impressions: UTI (urinary tract infection) Qualified Codes: T83.511A - Infection and inflammatory reaction due to indwelling urethral catheter, initial encounter; N39.0 - Urinary tract infection, site not specified CHF (congestive heart failure) Qualified Codes: I50.9 - Heart failure, unspecified COPD (chronic obstructive pulmonary disease) Qualified Codes: J44.9 - Chronic obstructive pulmonary disease, unspecified Disposition: 01 HOME, SELF-CARE Condition: Stable Departure-Patient Inst. Decision time for Depature: 12:55 Referrals: SHANIQUE VEGA MD (PCP/Family) Primary Care Physician Patient Instructions: Acute Cystitis (DC), Shortness of Breath, Adult ED Add. Discharge Instructions: You have a sacral pressure ulcer. Continuing to use the barrier ointment as well as other pressure reduction strategies will be useful in getting the wound to improve and ultimately heal. All discharge instructions reviewed with patient and/or family. Voiced understanding. Scripts Cefadroxil (Cefadroxil) 500 Mg Capsule 500 MG PO BID for 5 Days, #10 CAP 0 Refills Prov: GARRISON MONTGOMERY APRN 10/20/22 GARRISON MONTGOMERY APRN Oct 20, 2022 11:48
[2022-10-20 11:54] LABS: BILIRUBIN,URINE NEGATIVE (NEGATIVE); CLARITY,URINE CLOUDY; COLOR,URINE YELLOW; GLUCOSE, URINE (UA) NEGATIVE (NEGATIVE); KETONES,URINE NEGATIVE (NEGATIVE); LEUKOCYTE ESTERASE ,URINE 3+ (NEGATIVE); NITRITE,URINE POSITIVE (NEGATIVE); PROTEIN,URINE NEGATIVE (NEGATIVE)
[2022-10-20] MEDS ORDERED: RT-ALBUTEROL/IPRATROPIUM 3 ML (DUONEB) VIAL INH ONE (12:00)
[2022-10-20 12:05] LABS: AMORPHOUS SEDIMENT,UR LARGE AMOR URATES /LPF; BACTERIA,URINE LARGE /HPF; RBC,URINE 0-2 /HPF
[2022-10-20] MEDS ORDERED: CEFA500C PO (12:59)
[2022-10-20 13:20] VITALS: BP 111/94
[2022-10-21] MEDS ORDERED: ENOXAPARIN 40 MG/0.4 ML (LOVENOX) SYR SC SCH (07:30)
--- NOTE | 2022-10-21 07:47 | Tele-ICU Consult ---
Progress Note video rounds completed 86 y/o female admitted through the ED from a detention with SOB and a hx of PNA diagnosed by cxr prior to admission. Was given cefipime in ED. CXR showed findings consistent with CHF, no infiltrate. Lactate was anormal Patient was placed on BIPAP with improvement. Radha has a fib but rate controlled. Not on any anticoagulants. SQ lovenox orderd this am by this provider. PE:appears comfortable in bed Pulse 68-73 irregularly, irregulat, a fib BP 116/62 O2 sat: 98% on BIPAP 12/6 Hgb this am 7.2 prior was 7.8 Blood sugar 173 IMP: CHF exacerbation with a fib, rate controlled Anemia hyperglycemia PLAN: DVT px initiated sliding scale for blood sugar probably needs echo and cardiology consult Focused Exam Lactate Level 10/20/22 11:15: Lactic Acid Level 0.63 Height, Weight, BMI Height: 5'2.00" Weight: 165lbs. 7.0oz. 74.428395br; 34.00 BMI Method:Stated Labs Laboratory Tests 10/20/22 11:15 Results Results/Procedures Lab Laboratory Tests 10/20/22 11:15 Results Labs Labs Laboratory Tests 10/20/22 11:15: White Blood Count 8.5, Red Blood Count 3.71L, Hemoglobin 7.8L, Hematocrit 27L, Mean Corpuscular Volume 72L, Mean Corpuscular Hemoglobin 21L, Mean Corpuscular Hemoglobin Concent 29L, Red Cell Distribution Width 20.3H, Platelet Count 323, Mean Platelet Volume 9.8, Immature Granulocyte % (Auto) 1, Neutrophils (%) (Auto) 78H, Lymphocytes (%) (Auto) 11L, Monocytes (%) (Auto) 9, Eosinophils (%) (Auto) 1, Basophils (%) (Auto) 0, Neutrophils # (Auto) 6.6, Lymphocytes # (Auto) 1.0, Monocytes # (Auto) 0.7, Eosinophils # (Auto) 0.1, Basophils # (Auto) 0.0, Immature Granulocyte # (Auto) 0.1, Prothrombin Time 17.1H, INR Comment 1.3, Activated Partial Thromboplast Time 44H, Sodium Level 135, Potassium Level 3.9, Chloride Level 98, Carbon Dioxide Level 23, Anion Gap 14, Blood Urea Nitrogen 10, Creatinine 0.70, Estimat Glomerular Filtration Rate 85, BUN/Creatinine Ratio 14, Glucose Level 133H, Lactic Acid Level 0.63, Calcium Level 8.7, Corrected Calcium 9.2, Total Bilirubin 0.4, Aspartate Amino Transf (AST/SGOT) 15, Alanine Aminotransferase (ALT/SGPT) 6, Alkaline Phosphatase 75, Troponin I < 0.028, Total Protein 6.7, Albumin 3.4 10/20/22 11:45: Urine Color YELLOW, Urine Clarity CLOUDY, Urine pH 6.0, Urine Specific Flushing 1.015L, Urine Protein NEGATIVE, Urine Glucose (UA) NEGATIVE, Urine Ketones NEGATIVE, Urine Nitrite POSITIVEH, Urine Bilirubin NEGATIVE, Urine Urobilinogen 0.2, Urine Leukocyte Esterase 3+H, Urine RBC (Auto) 1+H, Urine RBC 0-2, Urine WBC 10-25H, Urine Squamous Epithelial Cells NONE, Urine Renal Epithelial Cells NONE, Urine Crystals PRESENTH, Urine Amorphous Sediment LARGE VI URATESH, Urine Bacteria LARGEH, Urine Casts NONE, Urine Mucus NEGATIVE, Urine Culture Indicated CULTURE PENDING 10/20/22 11:52: Influenza Type A (RT-PCR) Not Detected, Influenza Type B (RT-PCR) Not Detected, SARS-CoV-2 RNA (RT-PCR) Not Detected SCOTT MARTIN MD Oct 21, 2022 07:47
[2022-10-21] MEDS ORDERED: inSUlin ASPART (NovoLOG) 1 UNIT/0.01 ML (CHARGE PER UNIT) SC SCH (12:00)
== END 2022-10-20 13:40 | disposition home or self-care (01) ==
LOC: EDUNIT# 10:52 → ER 11:06
DX: I11.0 Hypertensive heart disease with heart failure (principal); I50.9 Heart failure, unspecified; J44.9 Chronic obstructive pulmonary disease, unspecified; N39.0 Urinary tract infection, site not specified; D64.9 Anemia, unspecified; Z87.891 Personal history of nicotine dependence; Z95.1 Presence of aortocoronary bypass graft; Z88.2 Allergy status to sulfonamides; Z20.822 Contact with and (suspected) exposure to COVID-19; Z99.81 Dependence on supplemental oxygen
CPT/HCPCS: 36415; 71045; 80053; 81000; 83605; 84484; 85025; 85610; 85730; 87040; 87077; 87088; 87186; 87636; 93005

== ENCOUNTER 2022-10-20 18:25 | Inpatient (IN) | payer MEDICARE, MEDICAID ==
[~2022-10-20] VITALS: Ht 157 cm; Wt 83.1 kg
[~2022-10-20 18:25] MED LIST changes: +CEFA500C PO
[2022-10-20 18:43] LABS: BASOPHILS # (AUTO) 0.1 10^3/uL (0.0-0.1); BASOPHILS % (AUTO) 1 % (0-10); EOSINOPHILS % (AUTO) 0 % (0-10); HEMATOCRIT 26 % (35-52); HEMOGLOBIN 7.8 g/dL (11.5-16.0); LYMPHOCYTES # (AUTO) 0.9 10^3/uL (1.0-4.0); LYMPHOCYTES % (AUTO) 8 % (12-44); MEAN CORPUSCULAR HEMOGLOBIN 21 pg (25-34); MEAN CORPUSCULAR HGB CONC 30 g/dL (32-36); MEAN CORPUSCULAR VOLUME 71 fL (80-99); MEAN PLATELET VOLUME 9.7 fL (9.0-12.2); MONOCYTES % (AUTO) 9 % (0-12); NEUTROPHILS # (AUTO) 8.8 10^3/uL (1.8-7.8); NEUTROPHILS % (AUTO) 81 % (42-75); PLATELET COUNT 305 10^3/uL (130-400); WHITE BLOOD COUNT 10.8 10^3/uL (4.3-11.0)
[2022-10-20] MEDS ORDERED: RT-ALBUTEROL/IPRATROPIUM 3 ML (DUONEB) VIAL INH ONE (18:45)
[2022-10-20] MEDS ORDERED: dilTIAZem DRIP PRE-MIX 125 ML IV SCH ×2 (18:45→21:30)
[2022-10-20 18:54] LABS: ALBUMIN 3.5 GM/DL (3.2-4.5); POTASSIUM 3.6 MMOL/L (3.6-5.0)
[2022-10-20 18:55] LABS: CALCIUM 8.6 MG/DL (8.5-10.1)
[2022-10-20 18:56] LABS: TOTAL PROTEIN 6.9 GM/DL (6.4-8.2)
[2022-10-20 18:57] LABS: LYMPHOCYTES % (MANUAL) 5 %; MONOCYTES % (MANUAL) 17 %; NEUTROPHILS % (MANUAL) 78 %; TARGET CELLS MODERATE
[2022-10-20 18:58] LABS: BILIRUBIN,TOTAL 0.4 MG/DL (0.1-1.0)
[2022-10-20 19:00] LABS: CREATININE SERUM 0.7 MG/DL (0.60-1.30)
[2022-10-20 19:10] LABS: ABG BASE EXCESS 1.6 MMOL/L (-2.5-2.5); ABG OXYGEN SATURATION 82 % (94-100); ABG PCO2 60 MMHG (35-45); ABG PO2 54 MMHG (79-93); ABG TCO2 28.9 MMOL/L (21.0-31.0)
[2022-10-20 19:11] LABS: ABG PH 7.29 (7.37-7.43); ALLENS TEST YES-POS
[2022-10-20 19:12] LABS: INSPIRED O2 7L; PATIENT TEMP 38.4; VENTILATOR NO
[2022-10-20] MEDS ORDERED: ACETAMINOPHEN 325 MG TABLET PO ONE (19:15)
[2022-10-20] MEDS ORDERED: ONDANSETRON 4 MG/2 ML (SDV) Z0FRAN IVP ONE (19:15)
--- NOTE | 2022-10-20 19:26 | ED General ---
General Chief Complaint: Respiratory Problems Stated Complaint: SOA Nursing Triage Note: PT TO [facility] BY [facility] WITH CC OF SOB, PT WAS SEEN HERE EARLIER TODAY FOR SOB AND UTI Source of Information: Patient Exam Limitations: No Limitations History of Present Illness Date Seen by Provider: Oct 20, 2022 Time Seen by Provider: 18:30 Initial Comments Patient is a 89-year-old female who presents to the emergency department via EMS for evaluation of acute shortness of air. Patient was seen here in this emergency department earlier today for similar symptoms although much less severity. At that time her work-up was largely unremarkable other than UTI and she was discharged home with antibiotics. Patient was reportedly 85% on 8 L at her long term. She is chronically on 4-1/2 L of oxygen via nasal cannula. Her heart rate was also noted to be markedly elevated. Patient has a history of proximal atrial fibrillation as well as COPD and CHF. She is on Eliquis as anticoagulation. EMS stated patient improved to the mid 90s when placed on 10 L of oxygen via facemask. Patient denies any complaints outside of the shortness of air. Patient reportedly had a chest x-ray yesterday at her long term that revealed pneumonia. The chest x-ray obtained earlier today did not reveal any acute infiltrate. Patient had blood and urine cultures obtained earlier today as well as a dose of cefepime. Allergies and Home Medications Allergies Coded Allergies: Sulfa (Sulfonamide Antibiotics) (Verified Allergy, Unknown, 04/16/19) diphenhydramine HCl (Verified Allergy, Unknown, 04/16/19) hydrochlorothiazide (Unverified Allergy, Unknown, 04/16/19) varenicline tartrate (Verified Allergy, Unknown, 04/16/19) Patient Home Medication List Home Medication List Reviewed: Yes Acetaminophen (Acetaminophen) 325 Mg Tablet, 650 MG PO Q4H PRN for PAIN-MILD, (Reported) Entered as Reported by: LLOYD CUEVAS on 04/01/18 0904 Albuterol Sulfate (Albuterol Sulfate) 2.5 Mg/0.5 Ml Vial.neb, 2.5 MG INH Q6H PRN for SHORTNESS OF BREATH, (Reported) Entered as Reported by: FARHAT MATA on 09/25/21 0939 Apixaban (Eliquis) 2.5 Mg Tablet, 2.5 MG PO BID, (Reported) Entered as Reported by: PATSY RODRIGUEZ on 06/19/20 0947 Aspirin (Aspirin) 81 Mg Tab.chew, 81 MG PO Q48H, (Reported) Entered as Reported by: PATSY RODRIGUEZ on 06/19/20 0947 Atorvastatin Calcium (Atorvastatin Calcium) 40 Mg Tablet, 40 MG PO HS, (Reported) Entered as Reported by: FARHAT MATA on 09/25/21 0936 Benzocaine (Oral Analgesic) 9 Gm Gel..gram., 1 APPLIC MM QID PRN for PAIN- BREAKTHROUGH, (Reported) Entered as Reported by: PATSY RODRIGUEZ on 06/19/20 1001 Budesonide/Formoterol Fumarate (Symbicort 160-4.5 Mcg Inhaler) 10.2 Gm Hfa.aer.ad, 2 PUFF IH BID, (Reported) Entered as Reported by: JOSEE VELAZQUEZ on 05/14/16 1655 Bupropion HCl (Bupropion Xl) 150 Mg Tab.er.24h, 150 MG PO HS, (Reported) Entered as Reported by: FARHAT MATA on 09/25/21 0936 Cefadroxil (Cefadroxil) 500 Mg Capsule, 500 MG PO BID Prescribed by: Garrison Montgomery on 10/20/22 1259 Cyclobenzaprine HCl (Cyclobenzaprine HCl) 5 Mg Tablet, 2.5 MG PO DAILY PRN for PAIN-BREAKTHROUGH, (Reported) Entered as Reported by: FARHAT MATA on 09/25/21 0936 Diltiazem HCl (Diltiazem 24Hr ER) 180 Mg Cap.er.24h, 360 MG PO DAILY Prescribed by: ASYA BURLESON on 09/29/21 1216 Furosemide (Furosemide) 40 Mg Tablet, 40 MG PO DAILY Prescribed by: ASYA BURLESON on 09/29/21 1216 Guaifenesin/Dextromethorphan (Robitussin Cough-Chest Dm Liq) 237 Ml Liquid, 5 ML PO Q4H PRN for COUGH, (Reported) Entered as Reported by: DAVID FIGUEROA on 04/17/19 0850 Hydrocodone/Acetaminophen (Hydrocodone-Acetamin 5-325 mg) 1 Each Tablet, 1 TAB PO Q4H PRN for PAIN-MODERATE (5-7) Prescribed by: NIK MCKEON on 10/07/21 1204 Lactobacillus Acidophilus (Acidophilus Lactobacilli) 1 Each Capsule, 1 EACH PO DAILY, (Reported) Entered as Reported by: FARHAT MATA on 09/25/21 0939 Lidocaine HCl (Lidocaine) 35 Gm Oint, 1 APPLIC TP BID PRN for PAIN-BREAKTHROUGH, (Reported) Entered as Reported by: FARHAT MATA on 09/25/21 0936 Mag Hydrox/Al Hydrox/Simeth (Antacid Anti-Gas Liquid) 355 Ml Oral.susp, 30 ML PO Q4H PRN for INDIGESTION, (Reported) Entered as Reported by: FARHAT MATA on 09/25/21 0936 Mag Hydrox/Aluminum Hyd/Simeth (Maalox Advanced Suspension) 355 Ml Oral.susp, 30 ML PO DAILY PRN for CONSTIPATION-7TH LINE, (Reported) Entered as Reported by: DAVID FIGUEROA on 04/17/19 0850 Metoprolol Succinate (Metoprolol Succinate) 25 Mg Tab.er.24h, 25 MG PO HS, (Reported) Entered as Reported by: PATSY RODRIGUEZ on 06/19/20 0947 Mirabegron (Myrbetriq) 25 Mg Tab.er.24h, 25 MG PO DAILY, (Reported) Entered as Reported by: DAVID FIGUEROA on 04/17/19 0850 Nystatin (Nyamyc) 15 Gm Powder, 1 APPLIC TOP BID PRN for YEAST, (Reported) Entered as Reported by: FARHAT MATA on 09/25/21 0936 Oxycodone HCl/Acetaminophen (Oxycodone-Acetaminophen 5-325) 1 Each Tablet, 1 EACH PO Q6H PRN for PAIN-MODERATE Prescribed by: NIK MCKEON on 11/30/21 1206 Pantoprazole Sodium (Pantoprazole Sodium) 40 Mg Tablet.dr, 40 MG PO DAILY, (Reported) Entered as Reported by: DAVID FIGUEROA on 04/17/19 0850 Potassium Chloride (Klor-Con 10) 10 Meq Tablet.er, 10 MEQ PO DAILY@0700 Prescribed by: ASYA BURLESON on 09/29/21 1216 Prednisone (Prednisone) 20 Mg Tab, 50 MG PO DAILY@0700 Prescribed by: ASYA BURLESON on 09/29/21 1216 Prednisone (Prednisone) 10 Mg Tab.ds.pk, 10 MG PO DAILY Prescribed by: NIK MCKEON on 10/07/21 1203 Propylene Glycol (Systane Complete) 1.5 Ml Drops, 1 DROP OU TID, (Reported) Entered as Reported by: PATSY RODRIGUEZ on 06/19/20 0954 Sertraline HCl (Zoloft) 100 Mg Tablet, 100 MG PO DAILY, (Reported) Entered as Reported by: PATSY RODRIGUEZ on 06/19/20 0938 Tamsulosin HCl (Flomax) 0.4 Mg Cap, 0.4 MG PO DAILY, (Reported) Entered as Reported by: DAVID FIGUEROA on 11/27/17 1051 Tramadol HCl (Tramadol HCl) 50 Mg Tablet, 50 MG PO BID, (Reported) Entered as Reported by: FARHAT MATA on 09/25/21 0936 Trazodone HCl (Trazodone HCl) 50 Mg Tablet, 25 MG PO HS, (Reported) Entered as Reported by: LLOYD CUEVAS on 04/01/18 0923 Valacyclovir HCl (Valacyclovir) 1,000 Mg Tablet, 1,000 MG PO TID Prescribed by: NIK MCKEON on 10/07/21 1203 [Flavoxate] 100 TAB, 200 MG PO TID, (Reported) Entered as Reported by: FARHAT MATA on 09/25/21 0936 Review of Systems Review of Systems Constitutional: no symptoms reported EENTM: no symptoms reported Respiratory: see HPI, cough, dyspnea on exertion, short of breath Cardiovascular: no symptoms reported Gastrointestinal: no symptoms reported Genitourinary: no symptoms reported Musculoskeletal: no symptoms reported Skin: no symptoms reported Past Ehkfwsy-Ikozmk-Xficoq Hx Patient Social History Tobacco Use?: Yes Tobacco type used: Cigarettes Smoking Status: Former Smoker Substance use?: No Alcohol Use?: No Immunizations Up To Date Tetanus Booster (TDap): Unknown PED Vaccines UTD: No First/Initial COVID19 Vaccinat: NOV Second COVID19 Vaccination Robert: Nov COVID19 Vaccination Date: NOV Seasonal Allergies Seasonal Allergies: No Past Medical History Surgery/Hospitalization HX: pmh: uti, htn, osteoarthritis, dm 2, copd, disorder, gerd, hyperlipidemia, dysphagia, afib, cad, Surgeries: Yes Adenoidectomy, Appendectomy, Bladder Surgery, Cardiac, CABG, Gallbladder, Hysterectomy, Joint Replacement, Orthopedic, Tonsillectomy Respiratory: Yes Asthma, COPD Currently Using CPAP: No Currently Using BIPAP: No Cardiac: Yes (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, 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, Atrial Fibrillation, Coronary Artery Disease, High Cholesterol, Hypertension Neurological: Yes (HAD BRAIN SURGERY FOR ANEURYSM 2008, dysphagia) Reproductive Disorders: Yes Female Reproductive Disorders: Endometriosis 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 Sexually Transmitted Disease: No Genitourinary: Yes (suprapubic catheter) UTI-Chronic Gastrointestinal: Yes Gastroesophageal Reflux, Chronic Constipation Musculoskeletal: Yes ( BILAT ROTATOR CUFF SURGERY) Degenerate Disk Disease, Arthritis, Chronic Back Pain Endocrine: Yes Diabetes, Non-Insulin dep Cataract Loss of Vision: Denies Hearing Impairment: Denies Cancer: No Psychosocial: Yes (panic disorder) Anxiety, Depression Integumentary: No Blood Disorders: No Adverse Reaction/Blood Tranf: No Family Medical History Cancer 09 SISTER Cancer of colon Cataract 03 MOTHER, Onset:Unknown Family history: Allergy 03 FATHER, Onset:Unknown 03 MOTHER, Onset:Unknown Family history: Arthritis 03 FATHER, Onset:Unknown 03 MOTHER, Onset:Unknown 09 SISTER, Onset:Unknown Family history: Cardiovascular disease 03 FATHER, Onset:Unknown 03 MOTHER, Onset:Unknown 09 BROTHER, Onset:Unknown 09 SISTER, Onset:Unknown Family history: Diabetes mellitus 03 MOTHER, Onset:Unknown Family history: Gastrointestinal disease 03 FATHER, Onset:Unknown Family history: Hypertension 03 MOTHER, Onset:Unknown Family history: Osteoporosis 03 MOTHER, Onset:Unknown Hearing loss 03 FATHER, Onset:Unknown Heart disease 03 FATHER, Onset:Unknown 03 MOTHER, Onset:Unknown 09 BROTHER, Onset:Unknown Hypercholesterolemia 03 MOTHER, Onset:Unknown Malignant neoplasm of lung 09 SISTER, Onset:Unknown Myocardial infarction 09 BROTHER, Onset:Unknown Parkinson's disease Stroke 03 FATHER, Onset:Unknown Thyroid disease No Family History of: Abdominal aortic aneurysm [place]'s disease Alcoholism Aphasia Chest pain Congenital heart disease Congestive heart failure Cystic fibrosis Dementia Dysphagia Family history: Alzheimer's disease Family history: Asthma Family history: Breast disease Family history: Coronary thrombosis Family history: Glaucoma Family history: Thyroid disorder Headache Hereditary disease History of - anemia History of - disorder History of - respiratory disease History of drug abuse Human immunodeficiency virus (HIV) seropositivity Infertile Kidney disease Prostate cancer Psychotic disorder Seizure disorder Tuberculosis Visual impairment Heart Disease, Diabetes Physical Exam Vital Signs Vital Signs - First Documented 10/20/22 18:30 Temp 38.4 Pulse 144 Resp 26 B/P (MAP) 143/81 (101) Pulse Ox 97 O2 Delivery Non Rebreather O2 Flow Rate 4.50 Capillary Refill : Less Than 3 Seconds Height, Weight, BMI Height: 5'2.00" Weight: 165lbs. 7.0oz. 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 Norm as Tested Focused Exam Lactate Level 10/20/22 18:35: Lactic Acid Level 0.88 Lactic Acid Level Laboratory Tests Test 10/20/22 18:35 Lactic Acid Level 0.88 MMOL/L (0.50-2.00) Progress/Results/Core Measures Suspected Sepsis SIRS Temperature: Pulse: 128 Respiratory Rate: 26 Laboratory Tests 10/20/22 18:35: White Blood Count 10.8 Blood Pressure 135 /79 Mean: 97 10/20/22 18:35: Lactic Acid Level 0.88 Laboratory Tests 10/20/22 18:35: Creatinine 0.70, Platelet Count 305, Total Bilirubin 0.4 Results/Orders Lab Results Laboratory Tests Test 10/20/22 18:35 10/20/22 18:54 Range/Units White Blood Count 10.8 4.3-11.0 10^3/uL Red Blood Count 3.70 L 3.80-5.11 10^6/uL Hemoglobin 7.8 L 11.5-16.0 g/dL Hematocrit 26 L 35-52 % Mean Corpuscular Volume 71 L 80-99 fL Mean Corpuscular Hemoglobin 21 L 25-34 pg Mean Corpuscular Hemoglobin Concent 30 L 32-36 g/dL Red Cell Distribution Width 20.2 H 10.0-14.5 % Platelet Count 305 130-400 10^3/uL Mean Platelet Volume 9.7 9.0-12.2 fL Immature Granulocyte % (Auto) 1 % Neutrophils (%) (Auto) 81 H 42-75 % Lymphocytes (%) (Auto) 8 L 12-44 % Monocytes (%) (Auto) 9 0-12 % Eosinophils (%) (Auto) 0 0-10 % Basophils (%) (Auto) 1 0-10 % Neutrophils # (Auto) 8.8 H 1.8-7.8 10^3/uL Lymphocytes # (Auto) 0.9 L 1.0-4.0 10^3/uL Monocytes # (Auto) 1.0 0.0-1.0 10^3/uL Eosinophils # (Auto) 0.0 0.0-0.3 10^3/uL Basophils # (Auto) 0.1 0.0-0.1 10^3/uL Immature Granulocyte # (Auto) 0.1 0.0-0.1 10^3/uL Neutrophils % (Manual) 78 % Lymphocytes % (Manual) 5 % Monocytes % (Manual) 17 % Target Cells MODERATE Sodium Level 132 L 135-145 MMOL/L Potassium Level 3.6 3.6-5.0 MMOL/L Chloride Level 96 L 98-107 MMOL/L Carbon Dioxide Level 20 L 21-32 MMOL/L Anion Gap 16 H 5-14 MMOL/L Blood Urea Nitrogen 10 7-18 MG/DL Creatinine 0.70 0.60-1.30 MG/DL Estimat Glomerular Filtration Rate 85 BUN/Creatinine Ratio 14 Glucose Level 165 H 70-105 MG/DL Lactic Acid Level 0.88 0.50-2.00 MMOL/L Calcium Level 8.6 8.5-10.1 MG/DL Corrected Calcium 9.0 8.5-10.1 MG/DL Total Bilirubin 0.4 0.1-1.0 MG/DL Aspartate Amino Transf (AST/SGOT) 18 5-34 U/L Alanine Aminotransferase (ALT/SGPT) 6 0-55 U/L Alkaline Phosphatase 75 40-136 U/L Troponin I 0.033 H <0.028 NG/ML B-Type Natriuretic Peptide 423.8 H <100.0 PG/ML Total Protein 6.9 6.4-8.2 GM/DL Albumin 3.5 3.2-4.5 GM/DL Blood Gas Puncture Site RIGHT RADIAL Blood Gas Patient Temperature 38.4 Arterial Blood pH 7.29 *L 7.37-7.43 Arterial Blood Partial Pressure CO2 60 H 35-45 MMHG Arterial Blood Partial Pressure O2 54 L 79-93 MMHG Arterial Blood HCO3 27 23-27 MMOL/L Arterial Blood Total CO2 28.9 21.0-31.0 MMOL/L Arterial Blood Oxygen Saturation 82 L 94-100 % Arterial Blood Base Excess 1.6 -2.5-2.5 MMOL/L Alejandro Test YES-POS Blood Gas Ventilator Setting NO Blood Gas Inspired Oxygen 7L My Orders Orders - GARRISON MONTGOMERY CURTAIN SUPERVISOR Cbc With Automated Diff (10/20/22 18:32) Comprehensive Metabolic Panel (10/20/22 18:32) Iv/Invasive Line Insertion .IV INSERT (10/20/22 18:32) Chest 1 View, Ap/Pa Only (10/20/22 18:32) Troponin I Pollo (10/20/22 18:32) Lactic Acid Analyzer (10/20/22 18:32) Ekg Tracing (10/20/22 18:32) Diltiazem Injection (Cardizem Injection) (10/20/22 18:45) Albuterol/Ipra Inhalation Soln (Duoneb I (10/20/22 18:45) Svn Small Volume Nebulizer (10/20/22 18:32) Bnp Pollo (10/20/22 18:32) Manual Differential (10/20/22 18:35) Diltiazem Drip Pre-Mix (Cardizem Drip Pr (10/20/22 18:45) Arterial Blood Gas (10/20/22 18:56) Ondansetron Injection (Zofran Injectio (10/20/22 19:15) Acetaminophen Tablet/Caplet (Tylenol T (10/20/22 19:15) Bipap (Bilevel) Set Up (10/20/22 19:13) Ed Admission (Communication) (10/20/22 19:33) Medications Given in ED Current Medications Medications Dose Ordered Sig/Kervin Route Start Time Stop Time Status Last Admin Dose Admin Albuterol/ Ipratropium 3 ml ONCE ONCE INH 10/20/22 18:45 10/20/22 18:46 DC 10/20/22 18:46 3 ML Diltiazem HCl 10 mg ONCE ONCE IVP 10/20/22 18:45 10/20/22 18:46 DC 10/20/22 18:40 10 MG Ondansetron HCl 4 mg ONCE ONCE IVP 10/20/22 19:15 10/20/22 19:16 DC 10/20/22 19:26 4 MG Vital Signs/I&O 10/20/22 10/20/22 10/20/22 10/20/22 18:30 18:30 18:40 18:52 Temp 38.4 Pulse 144 131 128 Resp 26 B/P (MAP) 143/81 (101) 143/81 135/79 Pulse Ox 97 O2 Delivery Non Rebreather Nasal Cannula O2 Flow Rate 4.50 10/20/22 10/20/22 18:59 19:34 Pulse 134 Pulse Ox 98 100 O2 Delivery Non Rebreather O2 Flow Rate 7.00 50.00 Capillary Refill : Less Than 3 Seconds Blood Pressure Mean: 97 Progress Note : Progress Note Patient is nontoxic and well-hydrated on exam. She is markedly dyspneic and tachypneic on exam. She does have normal oxygen saturations on the 10 L via facemask. She was titrated down to 8 L via nasal cannula. She initially had difficulty speaking due to the shortness of breath but after a few minutes was able to complete full sentences. She has noted to be in A. fib with RVR with a rate in the 140s to 150s. Laboratory evaluation largely unremarkable other than a very mildly elevated troponin that is likely a type II elevation given her hypoxia. ABG was obtained that shows respiratory acidosis with hypoxia and hypercapnia. Patient was thus placed on BiPAP. Patient likely has some underlying fluid overload related to her CHF. She was given a bolus of Cardizem and then placed on a Cardizem drip. Cardiology was consulted who agreed with continuing this plan. Patient will be admitted to the ICU for further evaluation. Hospitalist kindly agreed to admit. Patient was updated on plan of care and understanding verbalized. Patient's son was called and updated on plan of care. Departure Impression Primary Impression: Atrial fibrillation with rapid ventricular response Additional Impressions: CHF exacerbation Qualified Codes: I50.9 - Heart failure, unspecified UTI (urinary tract infection) Qualified Codes: N39.0 - Urinary tract infection, site not specified Elevated troponin Disposition: ADMITTED INPATIENT Condition: Stable Admissions Decision to Admit Reason: Admit from ER (General) Decision to Admit/Date: Oct 20, 2022 Time/Decision to Admit Time: 19:25 Departure-Patient Inst. Referrals: SHANIQUE VEGA MD (PCP/Family) Primary Care Physician GARRISON MONTGOMERY APRN Oct 20, 2022 19:26
[2022-10-20 19:34] VITALS: BP 120/36
--- NOTE | 2022-10-20 19:40 | Diagnostic Imaging Report ---
INDICATION: Shortness of breath. COMPARISON: 10/20/2022. TECHNIQUE: Single radiograph of the chest dated October 20, 2022 at 1928. FINDINGS: Postsurgical changes of the median sternotomy. The cardiac silhouette is enlarged, similar to the prior examination. Central pulmonary vascular congestion is again identified. Extensive bilateral mixed interstitial and airspace opacities, minimally worsened since the prior examination. No significant pleural effusion. No pneumothorax. No acute osseous abnormality. IMPRESSION: Slightly worsened extensive mixed interstitial and airspace opacities, bilaterally. This may relate to edema and congestive heart failure given cardiomegaly and slightly worsening pulmonary vascular congestion. Superimposed infectious infiltrate not excluded. Dictated by: Dictated on workstation # [id number]
[2022-10-20] MEDS ORDERED: diphenhydrAMINE 50 MG/ML INJ (BENADRYL) IVP PRN (21:30)
[2022-10-20] MEDS ORDERED: ONDANSETRON 4 MG (ZOFRAN) ORAL DISSOLVE TAB PO PRN (21:30)
[2022-10-20] MEDS ORDERED: PHARMACY TO DOSE IV SCH (21:30)
[2022-10-20] MEDS ORDERED: ANTACID SUSP 30 ML UDC (MYLANTA) PO PRN (21:30)
[2022-10-20] MEDS ORDERED: LACTULOSE SYRUP 10GM/15ML (ENULOSE) 30ML UDC PO PRN (21:30)
[2022-10-20] MEDS ORDERED: diphenhydrAMINE 25 MG TAB (BENADRYL) PO PRN (21:30)
[2022-10-20] MEDS ORDERED: NALOXONE 0.4 MG/ML 1 ML (NARCAN) VIAL IV PRN (21:30)
[2022-10-20] MEDS ORDERED: ONDANSETRON 4 MG/2 ML (SDV) Z0FRAN IV PRN (21:30)
[2022-10-20] MEDS ORDERED: HYDROmorphone 2 MG/ML VIAL (DILAUDID) IV PRN (21:30)
[2022-10-20] MEDS ORDERED: BISACODYL 10 MG SUPP (DULCOLAX) PR PRN (21:30)
[2022-10-20] MEDS ORDERED: CALCIUM CARBONATE 500 MG (TUMS) TAB.CHEW PO PRN (21:30)
[2022-10-20] MEDS ORDERED: NS IV 500 ML 500 ML IV PRN (21:30)
--- NOTE | 2022-10-20 22:08 | Tele-ICU Progress Note ---
Progress Note 86F COPD on 4.5L home O2, CHF, AAA without rupture, CAD, chronic indwelling soriano, afib, HTN admitted with sepsis and COPD exacerbation. She initially presented to ED from around 11 am with increasing SOB since yesterday. Reportedly had pna on CXR at [facility] yesterday, not seen on today's CXR in ED. She was stable on O2 demand. UA positive. Given cefepime and transferred back to [facility]. Returned around 1800 with severe respiratory distress. BP in 120s-140s/70s-80s. Cardizem gtt intiated for afib with RVR. BiPap initiated for hypercapnia with pH 7.29, CO2 60. - ARF: secondary to pna vs COPD vs CHF. BiPap initiated with subjective improvement. Will add nebs, solumedrol. - CHF: echo done 09/2021 with normal EF 55-60%. Diastole not commented on echo but cardiology note the following day discusses acute distolic CHF. pHTN with PASP 60-65 also noted. Has recently had lasix increased due to dependent edema. - afib: chornic and permanent, first documented on ECG 09/27/2017 at [facility]. Currently on cardizem gtt with BP 108/54, HR 100-120. Cardiology consulted. - DM: ISS ordered. Will spot check after initiation of steroids. Diagnosis: A total of 11 minutes of critical care time was devoted to this patient, including reviewing this patient's available data, including medical history, events of note and test results. I have overseen the activities of other members of the care team under my direct supervision during events of the note . This was required to treat and/or prevent further deterioration of critical care conditions ( as above ). Service provided to a patient admitted to ICU bed via interactive E-CARE system with real-time audio and video telecommunications from [facility]- ICU hub located in [place], [place] Focused Exam Lactate Level 10/20/22 18:35: Lactic Acid Level 0.88 Height, Weight, BMI Height: 5'2.00" Weight: 165lbs. 7.0oz. 74.869295mr; 34.00 BMI Method:Stated Lactic Acid Level Laboratory Tests Test 10/20/22 18:35 Lactic Acid Level 0.88 MMOL/L (0.50-2.00) SYD MCGOVERN MD Oct 20, 2022 22:08
[2022-10-20] MEDS: NOREPINEPHRINE 8 MG/250 ML 250 ML IV SCH (22:14)
[2022-10-20] MEDS: DexMEDEtomidine 250 ML DRIP 250 ML IV SCH (23:04)
[2022-10-21] MEDS ORDERED: VANCOMYCIN 1 GM/NS 250 ML IVPB IV ONE ×2
[2022-10-21] MEDS: methylPREDNISolone 40 MG/ML (Solu-MEDROL) VIAL IV SCH ×4 (00:10→18:44)
[2022-10-21] MEDS: CEFEPIME 1,000 MG/NS 50 ML IVPB IV SCH ×8 (00:12→23:26)
[2022-10-21] MEDS ORDERED: VANCOMYCIN 750 MG/NS 250 ML IVPB IV ONE ×2 (01:00)
[2022-10-21] MEDS: RT-ALBUTEROL/IPRATROPIUM 3 ML (DUONEB) VIAL INH SCH ×2 (02:58→10:36)
[2022-10-21 05:05] LABS: BASOPHILS % (AUTO) 0 % (0-10); EOSINOPHILS % (AUTO) 0 % (0-10); HEMATOCRIT 25 % (35-52); HEMOGLOBIN 7.2 g/dL (11.5-16.0); LYMPHOCYTES # (AUTO) 0.6 10^3/uL (1.0-4.0); LYMPHOCYTES % (AUTO) 8 % (12-44); MEAN CORPUSCULAR HEMOGLOBIN 21 pg (25-34); MEAN CORPUSCULAR HGB CONC 29 g/dL (32-36); MEAN CORPUSCULAR VOLUME 71 fL (80-99); MEAN PLATELET VOLUME 9.9 fL (9.0-12.2); MONOCYTES # (AUTO) 0.1 10^3/uL (0.0-1.0); MONOCYTES % (AUTO) 1 % (0-12); NEUTROPHILS # (AUTO) 7.6 10^3/uL (1.8-7.8); NEUTROPHILS % (AUTO) 90 % (42-75); PLATELET COUNT 280 10^3/uL (130-400); WHITE BLOOD COUNT 8.4 10^3/uL (4.3-11.0)
[2022-10-21 05:31] LABS: ALBUMIN 3.2 GM/DL (3.2-4.5); BILIRUBIN,TOTAL 0.3 MG/DL (0.1-1.0); CALCIUM 8.8 MG/DL (8.5-10.1); CREATININE SERUM 0.73 MG/DL (0.60-1.30); MAGNESIUM 1.6 MG/DL (1.6-2.4); PHOSPHORUS 3.4 MG/DL (2.3-4.7); TOTAL PROTEIN 6.2 GM/DL (6.4-8.2)
[2022-10-21] MEDS: inSUlin ASPART (NovoLOG) 1 UNIT/0.01 ML (CHARGE PER UNIT) SC SCH ×4 (05:46→20:26)
[2022-10-21] MEDS ORDERED: POTASSIUM CL 10MEQ/50ML IVPB 50 ML IV SCH (06:00)
[2022-10-21] MEDS ORDERED: KCL 20 MEQ TAB (K-DUR) PO SCH (06:00)
[2022-10-21] MEDS ORDERED: MAGNESIUM 1 GM/100 ML IVPB 100 ML IV SCH (06:00)
--- NOTE | 2022-10-21 06:12 | History & Physical-Hospitalist ---
History of Present Illness HPI/Chief Complaint CC: Respiratory failure requiring biPAP with AF RVR HPI: This is an 86yoWF clinic patient of [facility] who presents to the ER with dyspnea requiring biPAP and ICU admit along with Cardizem drip for AF RVR. Dr Torrez was consulted. No pain is reported. Checked meds and labs. Patient still requiring O2 and BiPAP at times. Patient is DNR. Source: patient Exam Limitations: clinical condition, other (dementia) Date Seen 10/21/22 Time Seen by a Provider: 12:00 Attending Physician Itz Chacon MD PCP Admitting Physician: Susy Cronin DO Attending Physician: Susy Cronin DO Referring Physician Date of Admission Oct 20, 2022 at 19:34 Home Medications & Allergies Home Medications Reviewed patient Home Medication Reconciliation performed by pharmacy medication reconciliations auto emissions technician and/or nursing. Patients Allergies have been reviewed. Allergies Allergies Coded Allergies Sulfa (Sulfonamide Antibiotics) (Verified Allergy, Unknown, 04/16/19) diphenhydramine HCl (Verified Allergy, Unknown, 04/16/19) hydrochlorothiazide (Unverified Allergy, Unknown, 04/16/19) varenicline tartrate (Verified Allergy, Unknown, 04/16/19) Past Iktzxfc-Mfunvo-Woqlxt Hx Patient Social History Marrital Status: single Employed/Student: retired Tobacco Use?: No Tobacco type used: Cigarettes Smoking Status: Unknown if Ever Smoked Substance use?: No Alcohol Use?: No Immunizations Up To Date Date of Influenza Vaccine: Aug 23, 2021 First/Initial COVID19 Vaccinat: NOV Second COVID19 Vaccination Robert: NOV Tetanus Booster (TDap): Unknown Hepatitis A: No Hepatitis B: No PED Vaccines UTD: No Date of Pneumonia Vaccine: Sep 05, 2014 Seasonal Allergies Seasonal Allergies: No Current Status Primary Language: [place] Preferred Spoken Language: [place] Is interpretation needed?: No Past Medical History Surgeries: Adenoidectomy, Appendectomy, Bladder Surgery, Cardiac, CABG, Gallbladder, Hysterectomy, Joint Replacement, Orthopedic, Tonsillectomy Asthma, COPD Currently Using CPAP: No Currently Using BIPAP: No Aneurysm, Atrial Fibrillation, Coronary Artery Disease, High Cholesterol, Hypertension 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 Hypertension 2. Hyperlipidemia 3. COPD 4. Osteoarthritis 5. CAD with history of PTCA x2, CABG with Vetch 01/02 6. Urinary Tract Infections recently treated on 09-25 and 11-02-14, now again on 02-25-15 with VRE and Klebsiella 7. Recurrent mental status changes 8. Frequent falls with concern for safety at home 9. Unintentional medication overdoses- pt. will take more medication than prescribed and forget she took them. 10. Diabetes Mellitus- HgA1C in 2013 7.0 pt. needs medications Past Surgical History 1. intracranial anuerysm repair 2.bilateral rotator cuff repair 3. cervical fusion 4. low back surgery x 2, 5. knee replacement 6. hysterectomy 7. carpal tunnel release bilaterally 8. Tonsillectomy 9. Cardiac Cath- Shan 10. CABG x3 Vetch 01-02. 11. adenoidectomy Family Medical History Cancer 09 SISTER Cancer of colon Cataract 03 MOTHER, Onset:Unknown Family history: Allergy 03 FATHER, Onset:Unknown 03 MOTHER, Onset:Unknown Family history: Arthritis 03 FATHER, Onset:Unknown 03 MOTHER, Onset:Unknown 09 SISTER, Onset:Unknown Family history: Cardiovascular disease 03 FATHER, Onset:Unknown 03 MOTHER, Onset:Unknown 09 BROTHER, Onset:Unknown 09 SISTER, Onset:Unknown Family history: Diabetes mellitus 03 MOTHER, Onset:Unknown Family history: Gastrointestinal disease 03 FATHER, Onset:Unknown Family history: Hypertension 03 MOTHER, Onset:Unknown Family history: Osteoporosis 03 MOTHER, Onset:Unknown Hearing loss 03 FATHER, Onset:Unknown Heart disease 03 FATHER, Onset:Unknown 03 MOTHER, Onset:Unknown 09 BROTHER, Onset:Unknown Hypercholesterolemia 03 MOTHER, Onset:Unknown Malignant neoplasm of lung 09 SISTER, Onset:Unknown Myocardial infarction 09 BROTHER, Onset:Unknown Parkinson's disease Stroke 03 FATHER, Onset:Unknown Thyroid disease No Family History of: Abdominal aortic aneurysm [place]'s disease Alcoholism Aphasia Chest pain Congenital heart disease Congestive heart failure Cystic fibrosis Dementia Dysphagia Family history: Alzheimer's disease Family history: Asthma Family history: Breast disease Family history: Coronary thrombosis Family history: Glaucoma Family history: Thyroid disorder Headache Hereditary disease History of - anemia History of - disorder History of - respiratory disease History of drug abuse Human immunodeficiency virus (HIV) seropositivity Infertile Kidney disease Prostate cancer Psychotic disorder Seizure disorder Tuberculosis Visual impairment Heart Disease, Diabetes Review of Systems Constitutional: see HPI Respiratory: dyspnea on exertion, short of breath, wheezing Physical Exam Physical Exam Vital Signs Vital Signs - First Documented 10/20/22 10/20/22 18:30 21:00 Temp 38.4 Pulse 144 Resp 26 B/P (MAP) 143/81 (101) Pulse Ox 97 O2 Delivery Non Rebreather O2 Flow Rate 4.50 FiO2 50 Capillary Refill : Less Than 3 Seconds Height, Weight, BMI Height: 5'2.00" Weight: 165lbs. 7.0oz. 74.339175qv; 34.64 BMI Method:Stated General Appearance: No Apparent Distress, Chronically ill Eyes: Right Eye Normal Inspection, Right Eye PERRL HEENT: PERRL/EOMI, Normal ENT Inspection, Pharynx Normal, Moist Mucous Membranes Neck: Full Range of Motion, Normal Inspection, Non Tender Respiratory: Chest Non Tender, No Accessory Muscle Use, No Respiratory Distress, Decreased Breath Sounds, Wheezing Cardiovascular: No Edema, No Gallop, No JVD, No Murmur, Normal Peripheral Pulses, Irregularly Irregular Gastrointestinal: Normal Bowel Sounds, No Organomegaly, No Pulsatile Mass, Non Tender, Soft Back: Normal Inspection, No CVA Tenderness, No Vertebral Tenderness Extremity: Normal Capillary Refill, Normal Inspection, Normal Range of Motion, Non Tender, No Calf Tenderness, No Pedal Edema Neurologic/Psychiatric: Alert, Oriented x3, No Motor/Sensory Deficits, Normal Mood/Affect Skin: Normal Color, Warm/Dry Lymphatic: No Adenopathy Results Results/Procedures Labs Laboratory Tests 10/20/22 18:35 10/21/22 04:55 Patient resulted labs reviewed. Assessment/Plan Admission Diagnosis Assessment: Acute respiratory failure PNA AF RVR BiPAP required CAD Dementia DNR Plan: BiPAP Cardizem drip Dr Torrez consulted Admission Status: Inpatient Order (span 2 midnights) Reason for Inpatient Admission: resp failure AF RVR Diagnosis/Problems Diagnosis/Problems (1) Acute and chronic respiratory failure with hypoxia Status: Acute (2) Atrial fibrillation Status: Chronic (3) Coronary artery disease Status: Chronic SUSY CRONIN DO Oct 21, 2022 06:12
[2022-10-21 06:48] VITALS: BP 119/57
[2022-10-21 07:07] LABS: ABG OXYGEN SATURATION 58 % (94-100); ABG PCO2 50 MMHG (35-45); ABG PH 7.36 (7.37-7.43); ABG TCO2 29.5 MMOL/L (21.0-31.0)
[2022-10-21 07:10] LABS: ABG PO2 37 MMHG (79-93); ALLENS TEST YES-POS; INSPIRED O2 N; PATIENT TEMP 37; VENTILATOR NO
[2022-10-21] MEDS ORDERED: NS IV 500 ML 500 ML IV SCH (07:45)
[2022-10-21] MEDS: DOCUSATE SODIUM 100 MG (COLACE) CAP PO SCH ×2 (08:37→19:45)
[2022-10-21] MEDS: APIXABAN 2.5 MG (ELIQUIS) TABLET PO SCH ×2 (08:37→20:25)
[2022-10-21] MEDS: SENNOSIDES 8.6 MG (SENOKOT) TAB PO SCH ×2 (08:37→20:12)
[2022-10-21] MEDS ORDERED: CEFEPIME INJECTION 2,000 MG in NS (IVPB) 50 ML IV SCH (09:00)
--- NOTE | 2022-10-21 09:42 | Diagnostic Imaging Report ---
EXAMINATION: Chest 1 view HISTORY: Heart failure COMPARISON: 10/20/2022 FINDINGS: There is moderate interstitial edema. No pleural effusion or pneumothorax. Heart is enlarged. IMPRESSION: 1. Unchanged moderate interstitial edema. Dictated by: Dictated on workstation # [id number]
[2022-10-21 10:36] VITALS: BP 127/88
[2022-10-21 11:19] VITALS: BP 97/60
[2022-10-21 11:35] VITALS: BP 117/63
--- NOTE | 2022-10-21 14:08 | Consultation-Cardiology ---
HPI-Cardiology Cardiology Consultation: Date of Consultation 10/21/22 Time Seen by a Provider: 12:20 Date of Admission Attending Physician Itz Chacon MD Admitting Physician Admitting Physician: Susy Maguire DO Attending Physician: Susy Maguire DO Consulting Physician CHELLE GOETZ MD, MA, FACP, FACC, [facility] [place], [place], CCDS Physician requesting consult: Dr Maguire HPI: Chief Complaint: Reason for Card consult: A Fib with RVR 86 yo woman, resident of [place], admitted to Dr Maguire on 10/20/24 with increasing shortness of breath and low oxygen sat. Diagnosed with pneumonia and PAF with RVR. She does not report cp or palp or syncope or swelling. Denies n/v/d. Report gen malaise and weakness. Denies focal weakness Review of Systems-Cardiology Review of Systems Constitutional: As described under HPI Eyes: No vision change Ears/Nose/Throat: No ear discharge, No nasal drainage, No recent hearing loss Respiratory: As described under HPI Cardiovascular: As described under HPI Gastrointestinal: As described under HPI (z) Genitourinary: No dysuria, No hematuria Musculoskeletal: back pain (chronic) Skin: No rash, No ulcerations Psychiatric/Neurological: No seizure, No focal weakness, No syncope Hematologic: No bleeding abnormalities TOY-Lnpdyf-Fupaye Hx Patient Social History Smoking Status: Unknown if Ever Smoked Former smoker/When Quit: Feb 03, 2013 2nd Hand Smoke Exposure: No Have you traveled recently?: No Alcohol Use?: No Tobacco type used: Cigarettes Immunizations Up To Date Tetanus Booster (TDap): Unknown Date of Pneumonia Vaccine: Sep 05, 2014 Date of Influenza Vaccine: Aug 23, 2021 Past Medical History PMH As described under Assessment. Family Medical History Family Medical History: She reports fam history of [place] and heart disease and hypertension and stroke, but is unable to provide details Family History: Cancer 09 SISTER Cancer of colon Cataract 03 MOTHER, Onset:Unknown Family history: Allergy 03 FATHER, Onset:Unknown 03 MOTHER, Onset:Unknown Family history: Arthritis 03 FATHER, Onset:Unknown 03 MOTHER, Onset:Unknown 09 SISTER, Onset:Unknown Family history: Cardiovascular disease 03 FATHER, Onset:Unknown 03 MOTHER, Onset:Unknown 09 BROTHER, Onset:Unknown 09 SISTER, Onset:Unknown Family history: Diabetes mellitus 03 MOTHER, Onset:Unknown Family history: Gastrointestinal disease 03 FATHER, Onset:Unknown Family history: Hypertension 03 MOTHER, Onset:Unknown Family history: Osteoporosis 03 MOTHER, Onset:Unknown Hearing loss 03 FATHER, Onset:Unknown Heart disease 03 FATHER, Onset:Unknown 03 MOTHER, Onset:Unknown 09 BROTHER, Onset:Unknown Hypercholesterolemia 03 MOTHER, Onset:Unknown Malignant neoplasm of lung 09 SISTER, Onset:Unknown Myocardial infarction 09 BROTHER, Onset:Unknown Parkinson's disease Stroke 03 FATHER, Onset:Unknown Thyroid disease No Family History of: Abdominal aortic aneurysm Robertson's disease Alcoholism Aphasia Chest pain Congenital heart disease Congestive heart failure Cystic fibrosis Dementia Dysphagia Family history: Alzheimer's disease Family history: Asthma Family history: Breast disease Family history: Coronary thrombosis Family history: Glaucoma Family history: Thyroid disorder Headache Hereditary disease History of - anemia History of - disorder History of - respiratory disease History of drug abuse Human immunodeficiency virus (HIV) seropositivity Infertile Kidney disease Prostate cancer Psychotic disorder Seizure disorder Tuberculosis Visual impairment Allergies and Home Medications Allergies Coded Allergies: Sulfa (Sulfonamide Antibiotics) (Verified Allergy, Unknown, 04/16/19) diphenhydramine HCl (Verified Allergy, Unknown, 04/16/19) hydrochlorothiazide (Unverified Allergy, Unknown, 04/16/19) varenicline tartrate (Verified Allergy, Unknown, 04/16/19) Patient Home Medication List Home Medication List Reviewed: Yes Acetaminophen (Acetaminophen) 325 Mg Tablet, 650 MG PO Q4H PRN for PAIN-MILD, (Reported) Entered as Reported by: LLOYD CUEVAS on 04/01/18 0904 Albuterol Sulfate (Albuterol Sulfate) 2.5 Mg/0.5 Ml Vial.neb, 2.5 MG INH Q6H PRN for SHORTNESS OF BREATH, (Reported) Entered as Reported by: FARHAT MATA on 09/25/21 0939 Apixaban (Eliquis) 2.5 Mg Tablet, 2.5 MG PO BID, (Reported) Entered as Reported by: PATSY RODRIGUEZ on 06/19/20 0947 Aspirin (Aspirin) 81 Mg Tab.chew, 81 MG PO Q48H, (Reported) Entered as Reported by: PATSY RODRIGUEZ on 06/19/20 0947 Atorvastatin Calcium (Atorvastatin Calcium) 40 Mg Tablet, 40 MG PO HS, (Reported) Entered as Reported by: FARHAT MATA on 09/25/21 0936 Benzocaine (Oral Analgesic) 9 Gm Gel..gram., 1 APPLIC MM QID PRN for PAIN- BREAKTHROUGH, (Reported) Entered as Reported by: PATSY RODRIGUEZ on 06/19/20 1001 Budesonide/Formoterol Fumarate (Symbicort 160-4.5 Mcg Inhaler) 10.2 Gm Hfa.aer.ad, 2 PUFF IH BID, (Reported) Entered as Reported by: JOSEE VELAZQUEZ on 05/14/16 1655 Bupropion HCl (Bupropion Xl) 150 Mg Tab.er.24h, 150 MG PO HS, (Reported) Entered as Reported by: FARHAT MATA on 09/25/21 0936 Cefadroxil (Cefadroxil) 500 Mg Capsule, 500 MG PO BID Prescribed by: Garrison Montgomery on 10/20/22 1259 Cyclobenzaprine HCl (Cyclobenzaprine HCl) 5 Mg Tablet, 2.5 MG PO DAILY PRN for PAIN-BREAKTHROUGH, (Reported) Entered as Reported by: FARHAT MATA on 09/25/21 09 Diltiazem HCl (Diltiazem 24Hr ER) 180 Mg Cap.er.24h, 360 MG PO DAILY Prescribed by: ASYA BURLESON on 09/29/21 1216 Furosemide (Furosemide) 40 Mg Tablet, 40 MG PO DAILY Prescribed by: ASYA BURLESON on 09/29/21 1216 Guaifenesin/Dextromethorphan (Robitussin Cough-Chest Dm Liq) 237 Ml Liquid, 5 ML PO Q4H PRN for COUGH, (Reported) Entered as Reported by: DAVID FIGUEROA on 04/17/19 0850 Hydrocodone/Acetaminophen (Hydrocodone-Acetamin 5-325 mg) 1 Each Tablet, 1 TAB PO Q4H PRN for PAIN-MODERATE (5-7) Prescribed by: NIK MCKEON on 10/07/21 1204 Lactobacillus Acidophilus (Acidophilus Lactobacilli) 1 Each Capsule, 1 EACH PO DAILY, (Reported) Entered as Reported by: FARHAT MATA on 09/25/21 0939 Lidocaine HCl (Lidocaine) 35 Gm Oint, 1 APPLIC TP BID PRN for PAIN-BREAKTHROUGH, (Reported) Entered as Reported by: FARHAT MATA on 09/25/21 0936 Mag Hydrox/Al Hydrox/Simeth (Antacid Anti-Gas Liquid) 355 Ml Oral.susp, 30 ML PO Q4H PRN for INDIGESTION, (Reported) Entered as Reported by: FARHAT MATA on 09/25/21 0936 Mag Hydrox/Aluminum Hyd/Simeth (Maalox Advanced Suspension) 355 Ml Oral.susp, 30 ML PO DAILY PRN for CONSTIPATION-7TH LINE, (Reported) Entered as Reported by: DAVID FIGUEROA on 04/17/19 0850 Metoprolol Succinate (Metoprolol Succinate) 25 Mg Tab.er.24h, 25 MG PO HS, (Reported) Entered as Reported by: PATSY RODRIGUEZ on 06/19/20 0947 Mirabegron (Myrbetriq) 25 Mg Tab.er.24h, 25 MG PO DAILY, (Reported) Entered as Reported by: DAVID FIGUEROA on 04/17/19 0850 Nystatin (Nyamyc) 15 Gm Powder, 1 APPLIC TOP BID PRN for YEAST, (Reported) Entered as Reported by: FARHAT MATA on 09/25/21 0936 Oxycodone HCl/Acetaminophen (Oxycodone-Acetaminophen 5-325) 1 Each Tablet, 1 EACH PO Q6H PRN for PAIN-MODERATE Prescribed by: NIK MCKEON on 11/30/21 1206 Pantoprazole Sodium (Pantoprazole Sodium) 40 Mg Tablet.dr, 40 MG PO DAILY, (Reported) Entered as Reported by: DAVID FIGUEROA on 04/17/19 0850 Potassium Chloride (Klor-Con 10) 10 Meq Tablet.er, 10 MEQ PO DAILY@0700 Prescribed by: ASYA BURLESON on 09/29/21 1216 Prednisone (Prednisone) 20 Mg Tab, 50 MG PO DAILY@0700 Prescribed by: ASYA BURLESON on 09/29/21 1216 Prednisone (Prednisone) 10 Mg Tab.ds.pk, 10 MG PO DAILY Prescribed by: NIK MCKEON on 10/07/21 1203 Propylene Glycol (Systane Complete) 1.5 Ml Drops, 1 DROP OU TID, (Reported) Entered as Reported by: PATSY RODRIGUEZ on 06/19/20 0954 Sertraline HCl (Zoloft) 100 Mg Tablet, 100 MG PO DAILY, (Reported) Entered as Reported by: PATSY RODRIGUEZ on 06/19/20 0938 Tamsulosin HCl (Flomax) 0.4 Mg Cap, 0.4 MG PO DAILY, (Reported) Entered as Reported by: DVAID FIGUEROA on 11/27/17 1051 Tramadol HCl (Tramadol HCl) 50 Mg Tablet, 50 MG PO BID, (Reported) Entered as Reported by: FARHAT MATA on 09/25/21 0936 Trazodone HCl (Trazodone HCl) 50 Mg Tablet, 25 MG PO HS, (Reported) Entered as Reported by: LLOYD CUEVAS on 04/01/18 0923 Valacyclovir HCl (Valacyclovir) 1,000 Mg Tablet, 1,000 MG PO TID Prescribed by: NIK MCKEON on 10/07/21 1203 [Flavoxate] 100 TAB, 200 MG PO TID, (Reported) Entered as Reported by: FARHAT MATA on 09/25/21 0936 Physical Exam-Cardiology Physical Exam Vital Signs/I&O 10/21/22 10/21/22 10/21/22 10/21/22 02:58 03:00 04:00 04:00 Pulse 72 70 80 68 Resp 19 20 19 B/P (MAP) 111/70 (84) 115/71 (86) Pulse Ox 98 99 99 O2 Delivery NIV Bilevel NIV Bilevel NIV Bilevel O2 Flow Rate 50.00 50.00 50.00 FiO2 50 10/21/22 10/21/22 10/21/22 10/21/22 05:00 06:00 06:48 07:00 Pulse 94 80 70 66 64 Resp 18 23 18 19 B/P (MAP) 125/76 (92) 120/58 (78) 101/63 (76) Pulse Ox 99 100 98 96 O2 Delivery NIV Bilevel NIV Bilevel NIV Bilevel O2 Flow Rate 50.00 50.00 30.00 50.00 10/21/22 10/21/22 10/21/22 10/21/22 07:00 07:37 08:00 08:00 Temp 36.9 Pulse 82 66 Resp 18 B/P (MAP) 112/71 (85) Pulse Ox 97 O2 Delivery NIV Bilevel NIV Bilevel O2 Flow Rate 50.00 FiO2 50 10/21/22 10/21/22 10/21/22 10/21/22 08:40 09:00 09:37 10:00 Pulse 75 90 Resp 16 15 B/P (MAP) 118/56 (76) 122/76 (91) Pulse Ox 97 97 O2 Delivery High Flow N/C High Flow N/C NIV Bilevel NIV Bilevel O2 Flow Rate 5.00 5.00 50.00 50.00 10/21/22 10/21/22 10/21/22 10/21/22 10:36 11:00 11:19 11:35 Temp 36.0 36.2 Pulse 81 105 98 89 Resp 19 18 B/P (MAP) 127/62 (83) 97/60 117/63 Pulse Ox 86 96 O2 Delivery NIV Bilevel O2 Flow Rate 40.00 50.00 10/21/22 10/21/22 10/21/22 10/21/22 11:51 12:00 12:00 12:00 Temp 36.4 Pulse 95 Resp 24 B/P (MAP) 115/60 (78) Pulse Ox 91 O2 Delivery High Flow N/C High Flow N/C NIV Bilevel O2 Flow Rate 5.00 7.00 50.00 10/21/22 10/21/22 10/21/22 13:00 13:00 13:30 Pulse 111 96 Resp 27 B/P (MAP) 98/76 (83) Pulse Ox 94 O2 Delivery High Flow N/C NIV Bilevel O2 Flow Rate 5.00 40.00 10/21/22 00:00 Intake Total 250 ml Output Total 250 ml Balance 0 ml Capillary Refill : Less Than 3 Seconds Constitutional: AAO x 3, well-developed, well-nourished HEENT: EOMI, hearing is well preserved; No xanthelasmas are seen Neck: carotid pulses are 2 + bilaterally, with good upstrokes Respiratory: No accessory muscle use; chest expansion is symmetric, chest is bilaterally symmetric, other (Fair to good, bilateral air entry that is diminished at the bases; basal coarse crackels) Cardiovascular: irregularly irregular, S1 and S2, systolic murmur (Soft CELESTINO at card base) Gastrointestinal: No tender; soft; No guarding, No rebound; audible bowel sounds Extremities: No clubbing, No cyanosis, No significant edema Neurologic/Psychiatric: oriented x 3, other (moves all limbs equally) Skin: normal color, warm/dry; No cyanosis, No rash, No ulcerations Data Review Labs Laboratory Tests 10/20/22 18:35: White Blood Count 10.8, Red Blood Count 3.70L, Hemoglobin 7.8L, Hematocrit 26L, Mean Corpuscular Volume 71L, Mean Corpuscular Hemoglobin 21L, Mean Corpuscular Hemoglobin Concent 30L, Red Cell Distribution Width 20.2H, Platelet Count 305, Mean Platelet Volume 9.7, Immature Granulocyte % (Auto) 1, Neutrophils (%) (Auto) 81H, Lymphocytes (%) (Auto) 8L, Monocytes (%) (Auto) 9, Eosinophils (%) (Auto) 0, Basophils (%) (Auto) 1, Neutrophils # (Auto) 8.8H, Lymphocytes # (Auto) 0.9L, Monocytes # (Auto) 1.0, Eosinophils # (Auto) 0.0, Basophils # (Auto) 0.1, Immature Granulocyte # (Auto) 0.1, Neutrophils % (Manual) 78, Lymphocytes % (Manual) 5, Monocytes % (Manual) 17, Target Cells MODERATE, Sodium Level 132L, Potassium Level 3.6, Chloride Level 96L, Carbon Dioxide Level 20L, Anion Gap 16H, Blood Urea Nitrogen 10, Creatinine 0.70, Estimat Glomerular Filtration Rate 85, BUN/Creatinine Ratio 14, Glucose Level 165H, Lactic Acid Level 0.88, Calcium Level 8.6, Corrected Calcium 9.0, Total Bilirubin 0.4, Aspartate Amino Transf (AST/SGOT) 18, Alanine Aminotransferase (ALT/SGPT) 6, Alkaline Phosphatase 75, Troponin I 0.033H, B-Type Natriuretic Peptide 423.8H, Total Protein 6.9, Albumin 3.5 10/20/22 18:54: Blood Gas Puncture Site RIGHT RADIAL, Blood Gas Patient Temperature 38.4, Arterial Blood pH 7.29*L, Arterial Blood Partial Pressure CO2 60H, Arterial Blood Partial Pressure O2 54L, Arterial Blood HCO3 27, Arterial Blood Total CO2 28.9, Arterial Blood Oxygen Saturation 82L, Arterial Blood Base Excess 1.6, Alejandro Test YES-POS, Blood Gas Ventilator Setting NO, Blood Gas Inspired Oxygen 7L 10/20/22 21:19: Glucometer 165H 10/21/22 04:55: White Blood Count 8.4, Red Blood Count 3.49L, Hemoglobin 7.2L, Hematocrit 25L, Mean Corpuscular Volume 71L, Mean Corpuscular Hemoglobin 21L, Mean Corpuscular Hemoglobin Concent 29L, Red Cell Distribution Width 20.2H, Platelet Count 280, Mean Platelet Volume 9.9, Immature Granulocyte % (Auto) 1, Neutrophils (%) (Auto) 90H, Lymphocytes (%) (Auto) 8L, Monocytes (%) (Auto) 1, Eosinophils (%) (Auto) 0, Basophils (%) (Auto) 0, Neutrophils # (Auto) 7.6, Lymphocytes # (Auto) 0.6L, Monocytes # (Auto) 0.1, Eosinophils # (Auto) 0.0, Basophils # (Auto) 0.0, Immature Granulocyte # (Auto) 0.1, Sodium Level 135, Potassium Level 4.0, Chloride Level 100, Carbon Dioxide Level 22, Anion Gap 13, Blood Urea Nitrogen 11, Creatinine 0.73, Estimat Glomerular Filtration Rate 81, BUN/Creatinine Ratio 15, Glucose Level 173H, Calcium Level 8.8, Corrected Calcium 9.4, Total Bilirubin 0.3, Aspartate Amino Transf (AST/SGOT) 18, Alanine Aminotransferase (ALT/SGPT) 12, Alkaline Phosphatase 66, Total Protein 6.2L, Albumin 3.2, Phosphorus Level 3.4, Magnesium Level 1.6 10/21/22 07:01: Blood Gas Puncture Site RIGHT RADIAL, Blood Gas Patient Temperature 37, Arterial Blood pH 7.36L, Arterial Blood Partial Pressure CO2 50H, Arterial Blood Partial Pressure O2 37*L, Arterial Blood HCO3 28H, Arterial Blood Total CO2 29.5, Arterial Blood Oxygen Saturation 58L, Arterial Blood Base Excess 3.0H, Alejandro Test YES-POS, Blood Gas Ventilator Setting NO, Blood Gas Inspired Oxygen N 10/21/22 07:53: 10/21/22 10:27: Glucometer 176H Laboratory Tests 10/20/22 18:35 10/21/22 04:55 A/P-Cardiology Assessment/Admission Diagnosis Chronic A Fib, first document in 2017 at [facility] - chronically on apixaban for stroke prophylaxis - RVR during this hospitalization Ac on ch diastolic CHF Marked anemia of undetermined etiology - managed by Dr Maguire CAD - s/p [address] Maza at [facility] in -2014: GREY to LAD, SVG to OM1 and SVG to PDA. Cardiac cath of Oct 15, 2017 (done following an MPI that showed apical ischemia) showed widely patent aortocoronary graft to the distal RCA, widely patent aortocoronary graft to OM system, widely patent left internal mammary artery graft to the distal LAD, normal to hyperdynamic LV systolic function with an ejection fraction of approx 70%, normal LVEDP, no evidence of thoracic aortic aneurysm or dissection, mod-sized infrarenal abdominal aortic aneurysm, mild prox stenosis of the left renal artery - MPI on 06/21/20: mild ant-lat ischemia (technically difficult study due to significant patient motion) normal LVEF - Echo on 06/20/20: LVEF 50-55%, biatrial enlargement, mild to mod TR, pulm htn (PASP approx 60-65 mmHg) H/O GI bleed - with hypovolemic shock during hospitalization of April 16, 2019. GI bleed due to a bleeding prepyloric ulcer (managed by Dr. Lemus) - no recurrence Carotid arterial disease - s/p R CEA with Dr Valenzuela at [facility] in Dec 2017 - s/p L carotid PCI at [facility] in January 2018 (Dr Valenzuela). - Mild carotid arterial disease on carotid u/s of Nov 2019 H/o old lacunar infarction - including R internal capsule (based on w/u of Dec 2017 at [facility]) S/P right hip replacement PAD: - Peripheral angiogram with runoffs of March 2018: Moderate-sized, infrarenal, sa ccular abdominal aortic aneurysm. A 70% ostial and proximal stenoses of the renal arteries on both sides. 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 Proximal occlusion of the right superficial femoral artery which reconstitutes via collaterals in its distal portion. There is a 2- vessel runoff in the leg. Multiple up to 75% stenoses in the mid and distal portions of the left superficial femoral artery. For these findings she was referred to [facility]. - Arterial Doppler of both legs on 06/22/20: Bilateral lower extremity peripheral vascular disease. There are monophasic waveforms throughout the right lower extreme arterial system which can be seen with more proximal disease. There is a probable stenosis in the mid left SFA where there is some velocity elevation COPD - managed by PCP H/O Tobaccoism - quit 2009 HTN - controlled H/o hypothyroidism - that is followed by her fam phy Urology - S/P suprapubic catheter placement per Dr. Jmaes on 11-26-2017 GI - S/P umbilical hernia repair on 06-23-[address] Kallie Cintron in Nov 2021 Discussion and Recomendations * Long-acting, oral dilt for vent rate control * Apixaban for stroke prophylaxis * Furosemide for decomp CHF * Echo * Monitor labs and correct abnormalities * We recommend that he Hospitalist Svce (Dr Maguire) consider blood transfusion and w/u for patient's severe anemia CHELLE GOETZ MD FACP [facility] CCDS Oct 21, 2022 14:08
[2022-10-21 14:30] VITALS: BP 126/68
[2022-10-21] MEDS ORDERED: KCL 10 MEQ TAB (MICRO K) PO NR (14:45)
[2022-10-21] MEDS ORDERED: FUROSEMIDE 40 MG (LASIX) TAB PO NR (14:45)
[2022-10-21] MEDS: DexMEDEtomidine 250 ML DRIP 250 ML IV SCH (15:53)
[2022-10-21] MEDS: NOREPINEPHRINE 8 MG/250 ML 250 ML IV SCH (15:58)
[2022-10-21] MEDS ORDERED: ZIPRASIDONE 20 MG INJ (GEODON) VIAL IM PRN (17:45)
[2022-10-21] MEDS ORDERED: WATER (STERILE) FOR INJ 10 ML BTL INJ SCH (17:45)
[2022-10-21] MEDS ORDERED: morphine INJ 10 MG/ML 1ML (SYR OR VIAL) IVP PRN (17:45)
[2022-10-21] MEDS: ALPRAZolam 1 MG (XANAX) TAB PO PRN (18:44)
[2022-10-21] MEDS ORDERED: VANCOMYCIN 1250 MG/NS 250 ML IVPB IV SCH ×2 (19:00)
[2022-10-21] MEDS: RT-ALBUTEROL/IPRATROPIUM 3 ML (DUONEB) VIAL INH PRN (21:51)
[2022-10-21] MEDS: LORazepam INJ 2 MG/ML (ATIVAN) VIAL IVP PRN (21:58)
[2022-10-22] MEDS: methylPREDNISolone 40 MG/ML (Solu-MEDROL) VIAL IV SCH ×5 (00:02→23:26)
[2022-10-22 03:45] VITALS: BP 123/69
[2022-10-22] MEDS: KCL 10 MEQ TAB (MICRO K) PO SCH (05:29)
[2022-10-22] MEDS: ALPRAZolam 1 MG (XANAX) TAB PO PRN ×4 (05:48→23:28)
[2022-10-22] MEDS: inSUlin ASPART (NovoLOG) 1 UNIT/0.01 ML (CHARGE PER UNIT) SC SCH ×4 (05:48→21:30)
[2022-10-22 06:14] LABS: BASOPHILS % (AUTO) 0 % (0-10); EOSINOPHILS % (AUTO) 0 % (0-10); HEMATOCRIT 30 % (35-52); HEMOGLOBIN 9.1 g/dL (11.5-16.0); LYMPHOCYTES # (AUTO) 0.7 10^3/uL (1.0-4.0); LYMPHOCYTES % (AUTO) 8 % (12-44); MEAN CORPUSCULAR HEMOGLOBIN 23 pg (25-34); MEAN CORPUSCULAR HGB CONC 31 g/dL (32-36); MEAN CORPUSCULAR VOLUME 74 fL (80-99); MEAN PLATELET VOLUME 9.9 fL (9.0-12.2); MONOCYTES # (AUTO) 0.3 10^3/uL (0.0-1.0); MONOCYTES % (AUTO) 3 % (0-12); NEUTROPHILS # (AUTO) 7.6 10^3/uL (1.8-7.8); NEUTROPHILS % (AUTO) 88 % (42-75); PLATELET COUNT 310 10^3/uL (130-400); WHITE BLOOD COUNT 8.6 10^3/uL (4.3-11.0)
[2022-10-22] MEDS: RT-ALBUTEROL/IPRATROPIUM 3 ML (DUONEB) VIAL INH SCH ×2 (07:32→20:19)
[2022-10-22] MEDS: CEFEPIME 1,000 MG/NS 50 ML IVPB IV SCH ×6 (07:51→23:26)
[2022-10-22 08:00] VITALS: BP 130/70
[2022-10-22] MEDS: FUROSEMIDE 40 MG (LASIX) TAB PO SCH (08:54)
[2022-10-22] MEDS: SENNOSIDES 8.6 MG (SENOKOT) TAB PO SCH ×2 (08:54→19:46)
[2022-10-22] MEDS: DOCUSATE SODIUM 100 MG (COLACE) CAP PO SCH ×2 (08:54→19:46)
[2022-10-22] MEDS: APIXABAN 2.5 MG (ELIQUIS) TABLET PO SCH ×2 (08:54→19:46)
[2022-10-22] MEDS: ACETAMINOPHEN 325 MG TABLET PO PRN (08:55)
[2022-10-22] MEDS ORDERED: DILT360C36 PO (10:24)
[2022-10-22] MEDS ORDERED: LACT1CAP39 PO (10:24)
[2022-10-22] MEDS ORDERED: ASPI-999 PO (10:24)
[2022-10-22] MEDS ORDERED: LOPE-175 PO (10:24)
[2022-10-22] MEDS ORDERED: LIDO700A45 TP (10:24)
[2022-10-22] MEDS ORDERED: LACT10SO3 PO (10:24)
[2022-10-22] MEDS ORDERED: ALBU1.25 INH (10:24)
[2022-10-22] MEDS ORDERED: FLAVOXATE (10:24)
[2022-10-22] MEDS ORDERED: FURO40TA4 PO (10:24)
[2022-10-22] MEDS ORDERED: SIMV40TA25 PO (10:24)
[2022-10-22] MEDS ORDERED: POTA-177 PO (10:24)
[2022-10-22] MEDS ORDERED: DULO30CA49 PO (10:24)
[2022-10-22] MEDS ORDERED: ACET-2267 PO (10:24)
[2022-10-22] MEDS ORDERED: PROP1.5D OU (10:24)
[2022-10-22] MEDS ORDERED: DOXY100T2 PO (10:24)
[2022-10-22] MEDS ORDERED: MTP25TSR PO (10:24)
[2022-10-22] MEDS ORDERED: RISP0.5T65 PO (10:24)
[2022-10-22] MEDS ORDERED: GBPN600T PO (10:24)
[2022-10-22] MEDS ORDERED: GABA-486 PO ×2 (10:24)
[2022-10-22] MEDS ORDERED: NYST1POW3 TP (10:24)
[2022-10-22] MEDS ORDERED: MOM10U PO (10:24)
[2022-10-22] MEDS ORDERED: BUDE10.2 IH (10:24)
[2022-10-22] MEDS ORDERED: FLAVOXATE 100 MG PO (10:24)
[2022-10-22] MEDS ORDERED: FLAVOXATE PO (10:35)
--- NOTE | 2022-10-22 11:25 | Progress Note - Cardiology ---
Cardiology SOAP Progress Note Objective: I&O/Vital Signs 10/22/22 10/22/22 10/22/22 10/22/22 19:50 20:19 20:27 20:50 Temp 36.6 35.9 Pulse 127 141 101 Resp 18 18 B/P (MAP) 152/57 (88) 124/58 (80) Pulse Ox 87 84 93 96 O2 Delivery High Flow N/C High Flow N/C NIV Bilevel O2 Flow Rate 7.50 7.00 40.00 10/22/22 10/23/22 10/23/22 10/23/22 23:23 00:20 02:40 04:06 Temp 36.0 36.2 Pulse 71 87 88 100 Resp 20 18 18 18 B/P (MAP) 111/53 (72) 106/58 (74) Pulse Ox 97 95 96 97 O2 Delivery NIV Bilevel NIV Bilevel O2 Flow Rate 40.00 40.00 10/23/22 06:32 Pulse 73 Resp 18 Pulse Ox 93 O2 Flow Rate 40.00 10/23/22 00:00 Intake Total 900 ml Output Total 1650 ml Balance -750 ml Weight (Pounds): 165 Weight (Ounces): 7.0 Weight (Calculated Kilograms): [id number] Constitutional: AAO x 3, well-developed, well-nourished Respiratory: No accessory muscle use; chest expansion is symmetric, chest is bilaterally symmetric, other (Fair to good, bilateral air entry that is diminished at the bases; basal coarse crackels) Cardiovascular: irregularly irregular, S1 and S2, systolic murmur (Soft CELESTINO at card base) Gastrointestional: No tender; soft; No guarding, No rebound; audible bowel sounds Extremities: No clubbing, No cyanosis, No significant edema Neurologic/Psychiatric: oriented x 3, other (moves all limbs equally) Skin: normal color, warm/dry; No cyanosis, No rash, No ulcerations Results/Procedures: Labs Laboratory Tests 10/22/22 10:40: Glucometer 215H 10/22/22 16:00: Sodium Level 139, Potassium Level 3.1L, Chloride Level 98, Carbon Dioxide Level 30, Anion Gap 11, Blood Urea Nitrogen 14, Creatinine 0.78, Estimat Glomerular Filtration Rate 75, BUN/Creatinine Ratio 18, Glucose Level 204H, Calcium Level 8.5 10/22/22 16:30: Glucometer 198H 10/22/22 20:49: Glucometer 304H 10/23/22 05:20: White Blood Count 10.5, Red Blood Count 4.18, Hemoglobin 9.3L, Hematocrit 31L, Mean Corpuscular Volume 75L, Mean Corpuscular Hemoglobin 22L, Mean Corpuscular Hemoglobin Concent 30L, Red Cell Distribution Width 21.2H, Platelet Count 318, Mean Platelet Volume 10.0, Immature Granulocyte % (Auto) 0, Neutrophils (%) (Auto) 91H, Lymphocytes (%) (Auto) 6L, Monocytes (%) (Auto) 3, Eosinophils (%) (Auto) 0, Basophils (%) (Auto) 0, Neutrophils # (Auto) 9.6H, Lymphocytes # (Auto) 0.6L, Monocytes # (Auto) 0.3, Eosinophils # (Auto) 0.0, Basophils # (Auto) 0.0, Immature Granulocyte # (Auto) 0.0, Sodium Level 138, Potassium Level 3.6, Chloride Level 99, Carbon Dioxide Level 28, Anion Gap 11, Blood Urea Nitrogen 16, Creatinine 0.76, Estimat Glomerular Filtration Rate 77, BUN/Creatinine Ratio 21, Glucose Level 249H, Glucometer 230H, Calcium Level 8.8 A/P: Assessment: Chronic A Fib, first document in 2017 at [facility] - chronically on apixaban for stroke prophylaxis - RVR during this hospitalization Ac on ch diastolic CHF Marked anemia of undetermined etiology - managed by Dr Maugire CAD - s/p [address] Maza at [facility] in : GREY to LAD, SVG to OM1 and SVG to PDA. Cardiac cath of Oct 15, 2017 (done following an MPI that showed apical ischemia) showed widely patent aortocoronary graft to the distal RCA, widely patent aortocoronary graft to OM system, widely patent left internal mammary artery graft to the distal LAD, normal to hyperdynamic LV systolic function with an ejection fraction of approx 70%, normal LVEDP, no evidence of thoracic aortic aneurysm or dissection, mod-sized infrarenal abdominal aortic aneurysm, mild prox stenosis of the left renal artery - MPI on 06/21/20: mild ant-lat ischemia (technically difficult study due to significant patient motion) normal LVEF - Echo on 06/20/20: LVEF 50-55%, biatrial enlargement, mild to mod TR, pulm htn (PASP approx 60-65 mmHg) H/O GI bleed - with hypovolemic shock during hospitalization of April 16, 2019. GI bleed due to a bleeding prepyloric ulcer (managed by Dr. Lemus) - no recurrence Carotid arterial disease - s/p R CEA with Dr Valenzuela at [facility] in Dec 2017 - s/p L carotid PCI at [facility] in January 2018 (Dr Valenzuela). - Mild carotid arterial disease on carotid u/s of Nov 2019 H/o old lacunar infarction - including R internal capsule (based on w/u of Dec 2017 at [facility]) S/P right hip replacement PAD: - Peripheral angiogram with runoffs of March 2018: Moderate-sized, infrarenal, saccular abdominal aortic aneurysm. A 70% ostial and proximal stenoses of the renal arteries on both sides. 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 Proximal occlusion of the right superficial femoral artery which reconstitutes via collaterals in its distal portion. There is a 2- vessel runoff in the leg. Multiple up to 75% stenoses in the mid and distal portions of the left superficial femoral artery. For these findings she was referred to [facility]. - Arterial Doppler of both legs on 06/22/20: Bilateral lower extremity peripheral vascular disease. There are monophasic waveforms throughout the right lower extreme arterial system which can be seen with more proximal disease. There is a probable stenosis in the mid left SFA where there is some velocity elevation COPD - managed by PCP H/O Tobaccoism - quit 2009 HTN - controlled H/o hypothyroidism - that is followed by her fam y Urology - S/P suprapubic catheter placement per Dr. James on 11-26-2017 GI - S/P umbilical hernia repair on 06-23-[address] Kallie Cintron in Nov 2021 Plan: * Long-acting, oral dilt for vent rate control * HR not well controlled - adjust Cardizem dose (previously on 360mg daily) * Continue Apixaban for stroke prophylaxis * Furosemide for decomp CHF * Echo today * Monitor labs and correct abnormalities * Anemia improved following transfusion of 1 unit * Management per medical services SATHISH ABAD Oct 22, 2022 11:25
[2022-10-22 12:00] VITALS: BP 113/76
--- NOTE | 2022-10-22 15:42 | Progress Note ---
Subjective Subjective/Events-last exam Pt is sweating and appears somewhat short of breath, but states she is feeling okay. She states she thought she was going to the other day at the nursing facility when her oxygen level was low, and was surprised to find she felt peaceful and that she is confident she will be going to [facility]. Focused Exam Lactate Level 10/20/22 18:35: Lactic Acid Level 0.88 Objective Exam Last Set of Vital Signs Vital Signs Date Time Temp Pulse Resp B/P (MAP) Pulse Ox O2 Delivery O2 Flow Rate FiO2 10/22/22 12:50 35.6 10/22/22 12:00 140 17 113/76 (88) 95 Nasal Cannula 8.00 10/21/22 16:00 40 Capillary Refill : Less Than 3 Seconds I&O Intake and Output 10/22/22 00:00 Intake Total 2522.5 ml Output Total 3600 ml Balance -1077.5 ml Intake Oral 1210 ml IV Total 1312.5 ml Output Urine Total 3600 ml # Bowel Movements 2 Daily Weight Change No General: Alert, Mild Distress Lungs: Clear to Auscultation Heart: Other (tachycardic) Extremities: No Edema Neuro: Normal Speech Psych/Mental Status: Mental Status NL Results/Procedures Lab Laboratory Tests 10/21/22 15:43: Glucometer 191H 10/21/22 20:15: Glucometer 230H 10/22/22 05:20: White Blood Count 8.6, Red Blood Count 4.01, Hemoglobin 9.1#L, Hematocrit 30L, Mean Corpuscular Volume 74L, Mean Corpuscular Hemoglobin 23L, Mean Corpuscular Hemoglobin Concent 31L, Red Cell Distribution Width 20.8H, Platelet Count 310, Mean Platelet Volume 9.9, Immature Granulocyte % (Auto) 1, Neutrophils (%) (Auto) 88H, Lymphocytes (%) (Auto) 8L, Monocytes (%) (Auto) 3, Eosinophils (%) (Auto) 0, Basophils (%) (Auto) 0, Neutrophils # (Auto) 7.6, Lymphocytes # (Auto) 0.7L, Monocytes # (Auto) 0.3, Eosinophils # (Auto) 0.0, Basophils # (Auto) 0.0, Immature Granulocyte # (Auto) 0.1 10/22/22 05:38: Glucometer 171H 10/22/22 10:40: Glucometer 215H Assessment/Plan Assessment/Plan (1) Respiratory failure Status: Acute Assessment & Plan: Secondary to COPD exacerbation, initially requiring bipap, now on high flow nasal cannula, but still at 7 lpm and with some increased work of breathing. On cefepime and solumedrol 40 mg q6 hours. Qualifiers: Qualified Codes: J96.21 - Acute and chronic respiratory failure with hypoxia; J96.22 - Acute and chronic respiratory failure with hypercapnia (2) COPD exacerbation Status: Acute (3) HTN (hypertension) Status: Chronic (4) Atrial fibrillation with rapid ventricular response Status: Acute Assessment & Plan: Initially requiring cardizem drip, is on apixaban for stroke prophylaxis, appreciate Cardiology recommendations (5) Peripheral vascular disease (6) Coronary artery disease Status: Chronic (7) CHF (congestive heart failure) Status: Acute Assessment & Plan: Cardiology consulted, appreciate recommendations. On furosemide. Qualifiers: Qualified Codes: I50.33 - Acute on chronic diastolic (congestive) heart failure (8) Pneumonia Status: Acute Assessment & Plan: CXR with diffuse findings of congestion, possible superimposed infection. (9) Sepsis Status: Acute Assessment & Plan: Febrile, tachycardic, tachypneic on admit. LA okay. Suspect secondary to pneumonia. Cefepime. SHARIF JOHNSON MD Oct 22, 2022 15:42
[2022-10-22 16:20] VITALS: BP 125/78
[2022-10-22 16:36] LABS: POTASSIUM 3.1 MMOL/L (3.6-5.0)
[2022-10-22 16:37] LABS: CALCIUM 8.5 MG/DL (8.5-10.1)
[2022-10-22 16:42] LABS: CREATININE SERUM 0.78 MG/DL (0.60-1.30)
[2022-10-22] MEDS: morphine INJ 4 MG/ML 1 ML (VIAL/SYRINGE) IVP PRN ×2 (16:46→19:58)
--- NOTE | 2022-10-22 17:52 | Progress Note - Cardiology ---
Cardiology SOAP Progress Note Subjective: Feeling better at time of this exam No cp or palp or syncope Shortness of breath is better Gen malaise and weakness present No n/v/d Objective: I&O/Vital Signs 10/22/22 10/22/22 10/22/22 10/22/22 07:34 08:00 08:47 08:55 Temp 36.3 36.2 Pulse 123 Resp 22 B/P (MAP) 130/70 (90) Pulse Ox 91 97 91 O2 Delivery High Flow N/C High Flow N/C High Flow N/C O2 Flow Rate 7.00 7.50 7.00 10/22/22 10/22/22 10/22/22 10/22/22 09:25 09:34 10:04 12:00 Temp 36.2 36.2 36.2 35.6 Pulse 140 Resp 17 B/P (MAP) 113/76 (88) Pulse Ox 95 O2 Delivery Nasal Cannula O2 Flow Rate 8.00 10/22/22 10/22/22 10/22/22 10/22/22 12:50 16:20 17:16 17:26 Temp 35.6 36.6 36.6 Pulse 106 Resp 18 B/P (MAP) 125/78 (94) Pulse Ox 95 O2 Delivery High Flow N/C High Flow N/C O2 Flow Rate 7.00 7.00 10/22/22 00:00 Intake Total 1272.5 ml Output Total 2775 ml Balance -1502.5 ml Weight (Pounds): 165 Weight (Ounces): 7.0 Weight (Calculated Kilograms): 74.579941 Constitutional: AAO x 3, well-developed, well-nourished Respiratory: No accessory muscle use; chest expansion is symmetric, chest is bilaterally symmetric, other (Fair to good, bilateral air entry that is diminished at the bases; basal coarse crackels) Cardiovascular: irregularly irregular, S1 and S2, systolic murmur (Soft CELESTINO at card base) Gastrointestional: No tender; soft; No guarding, No rebound; audible bowel sounds Extremities: No clubbing, No cyanosis, No significant edema Neurologic/Psychiatric: oriented x 3, other (moves all limbs equally) Skin: normal color, warm/dry; No cyanosis, No rash, No ulcerations Results/Procedures: Labs Laboratory Tests 12/4/22 20:15: Glucometer 230H 10/22/22 05:20: White Blood Count 8.6, Red Blood Count 4.01, Hemoglobin 9.1#L, Hematocrit 30L, Mean Corpuscular Volume 74L, Mean Corpuscular Hemoglobin 23L, Mean Corpuscular Hemoglobin Concent 31L, Red Cell Distribution Width 20.8H, Platelet Count 310, Mean Platelet Volume 9.9, Immature Granulocyte % (Auto) 1, Neutrophils (%) (Auto) 88H, Lymphocytes (%) (Auto) 8L, Monocytes (%) (Auto) 3, Eosinophils (%) (Auto) 0, Basophils (%) (Auto) 0, Neutrophils # (Auto) 7.6, Lymphocytes # (Auto) 0.7L, Monocytes # (Auto) 0.3, Eosinophils # (Auto) 0.0, Basophils # (Auto) 0.0, Immature Granulocyte # (Auto) 0.1 10/22/22 05:38: Glucometer 171H 10/22/22 10:40: Glucometer 215H 10/22/22 16:00: Sodium Level 139, Potassium Level 3.1L, Chloride Level 98, Carbon Dioxide Level 30, Anion Gap 11, Blood Urea Nitrogen 14, Creatinine 0.78, Estimat Glomerular Filtration Rate 75, BUN/Creatinine Ratio 18, Glucose Level 204H, Calcium Level 8.5 10/22/22 16:30: Glucometer 198H Laboratory Tests 10/20/22 18:35 10/21/22 04:55 10/22/22 05:20 10/22/22 16:00 A/P: Assessment: Chronic A Fib, first document in 2017 at [facility] - chronically on apixaban for stroke prophylaxis - RVR during this hospitalization Ac on ch diastolic CHF Marked anemia of undetermined etiology - managed by Dr Maguire CAD - s/p [address] Maza at [facility] in -2014: GREY to LAD, SVG to OM1 and SVG to PDA. Cardiac cath of Oct 15, 2017 (done following an MPI that showed apical ischemia) showed widely patent aortocoronary graft to the distal RCA, widely patent aortocoronary graft to OM system, widely patent left internal mammary artery graft to the distal LAD, normal to hyperdynamic LV systolic function with an ejection fraction of approx 70%, normal LVEDP, no evidence of thoracic aortic aneurysm or dissection, mod-sized infrarenal abdominal aortic aneurysm, mild prox stenosis of the left renal artery - MPI on 06/21/20: mild ant-lat ischemia (technically difficult study due to significant patient motion) normal LVEF - Echo on 06/20/20: LVEF 50-55%, biatrial enlargement, mild to mod TR, pulm htn (PASP approx 60-65 mmHg) H/O GI bleed - with hypovolemic shock during hospitalization of April 16, 2019. GI bleed due to a bleeding prepyloric ulcer (managed by Dr. Lemus) - no recurrence Carotid arterial disease - s/p R CEA with Dr Valenzuela at [facility] in Dec 2017 - s/p L carotid PCI at [facility] in January 2018 (Dr Valenzuela). - Mild carotid arterial disease on carotid u/s of Nov 2019 H/o old lacunar infarction - including R internal capsule (based on w/u of Dec 2017 at [facility]) S/P right hip replacement PAD: - Peripheral angiogram with runoffs of March 2018: Moderate-sized, infrarenal, saccular abdominal aortic aneurysm. A 70% ostial and proximal stenoses of the renal arteries on both sides. 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 Proximal occlusion of the right superficial femoral artery which reconstitutes via collaterals in its distal portion. There is a 2- vessel runoff in the leg. Multiple up to 75% stenoses in the mid and distal portions of the left superficial femoral artery. For these findings she was referred to [facility]. - Arterial Doppler of both legs on 06/22/20: Bilateral lower extremity peripheral vascular disease. There are monophasic waveforms throughout the right lower extr nick arterial system which can be seen with more proximal disease. There is a probable stenosis in the mid left SFA where there is some velocity elevation COPD - managed by PCP H/O Tobaccoism - quit 2009 HTN - controlled H/o hypothyroidism - that is followed by her fam phy Urology - S/P suprapubic catheter placement per Dr. James on 11-26-2017 GI - S/P umbilical hernia repair on 06-23-[address] Kallie Cintron in Nov 2021 Plan: * Long-acting, oral dilt for vent rate control * HR not well controlled - adjust Cardizem dose (previously on 360mg daily) * Continue Apixaban for stroke prophylaxis * Furosemide for decomp CHF * Monitor labs and correct abnormalities (replenish K that is 3.1 at 4 pm today) * Anemia improved following transfusion of 1 unit * Management per medical services CHELLE GOETZ MD [facility]S Oct 22, 2022 17:52
[2022-10-22] MEDS ORDERED: TROUGH ORDER-PHARMACY XX ONE (18:00)
[2022-10-22] MEDS ORDERED: KCL 20 MEQ TAB (K-DUR) PO NR ×2 (18:00→19:15)
[2022-10-22] MEDS ORDERED: VANCOMYCIN 1250 MG/NS 250 ML IVPB IV SCH ×2 (19:00)
[2022-10-22] MEDS: GABAPENTIN 600 MG (NEURONTIN) TAB PO SCH (19:46)
[2022-10-22] MEDS: DULoxetine 30 MG (CYMBALTA) CAP PO SCH (19:46)
[2022-10-22] MEDS: risperiDONE 0.5 MG (RisperDAL) TABLET PO SCH (19:46)
[2022-10-22] MEDS: ROSUVASTATIN 10 MG (CRESTOR) TABLET PO SCH (19:49)
[2022-10-22] MEDS: MICONAZOLE 2% POWDER (DESENEX AF) 90 GM TOP SCH (19:49)
[2022-10-22 19:50] VITALS: BP 152/57
[2022-10-22] MEDS: RT--FLUTICASONE/SALMETEROL 232-14 (AIRDUO RespiCLICK) IH SCH (20:30)
[2022-10-22 20:50] VITALS: BP 124/58
[2022-10-22] MEDS ORDERED: NYSTATIN TP SCH (21:00)
[2022-10-22] MEDS ORDERED: NON-FORMULARY MEDICATION 1 EA EA (Simvastatin 40 MG) PO SCH (21:00)
[2022-10-22] MEDS ORDERED: NON-FORMULARY MEDICATION 1 EA EA (Budesonide/Formoterol Fumarate (Symbicort 160-4.5 Mcg In IH SCH (21:00)
[2022-10-22] MEDS: BENZONATATE 100 MG (TESSALON) CAPSULE PO SCH ×2 (21:30→23:28)
[2022-10-23] VITALS (7 sets, daily range): BP systolic 103–128; BP diastolic 53–83
[2022-10-23] MEDS: methylPREDNISolone 40 MG/ML (Solu-MEDROL) VIAL IV SCH ×3 (05:38→17:59)
[2022-10-23] MEDS: KCL 10 MEQ TAB (MICRO K) PO SCH (05:38)
[2022-10-23] MEDS: inSUlin ASPART (NovoLOG) 1 UNIT/0.01 ML (CHARGE PER UNIT) SC SCH ×4 (05:38→20:42)
[2022-10-23 06:02] LABS: BASOPHILS % (AUTO) 0 % (0-10); EOSINOPHILS % (AUTO) 0 % (0-10); HEMATOCRIT 31 % (35-52); HEMOGLOBIN 9.3 g/dL (11.5-16.0); LYMPHOCYTES # (AUTO) 0.6 10^3/uL (1.0-4.0); LYMPHOCYTES % (AUTO) 6 % (12-44); MEAN CORPUSCULAR HEMOGLOBIN 22 pg (25-34); MEAN CORPUSCULAR HGB CONC 30 g/dL (32-36); MEAN CORPUSCULAR VOLUME 75 fL (80-99); MONOCYTES # (AUTO) 0.3 10^3/uL (0.0-1.0); MONOCYTES % (AUTO) 3 % (0-12); NEUTROPHILS # (AUTO) 9.6 10^3/uL (1.8-7.8); NEUTROPHILS % (AUTO) 91 % (42-75); PLATELET COUNT 318 10^3/uL (130-400); WHITE BLOOD COUNT 10.5 10^3/uL (4.3-11.0)
[2022-10-23 06:19] LABS: CALCIUM 8.8 MG/DL (8.5-10.1); CREATININE SERUM 0.76 MG/DL (0.60-1.30); POTASSIUM 3.6 MMOL/L (3.6-5.0)
[2022-10-23] MEDS: CEFEPIME 1,000 MG/NS 50 ML IVPB IV SCH ×4 (06:25→14:32)
[2022-10-23] MEDS: RT-ALBUTEROL/IPRATROPIUM 3 ML (DUONEB) VIAL INH SCH ×2 (06:32→21:21)
[2022-10-23] MEDS: RT--FLUTICASONE/SALMETEROL 232-14 (AIRDUO RespiCLICK) IH SCH ×2 (06:32→21:21)
[2022-10-23] MEDS ORDERED: NON-FORMULARY MEDICATION 1 EA EA (Lactobacillus Rhamnosus GG (Culturelle) 1 EACH) PO SCH (09:00)
[2022-10-23] MEDS: risperiDONE 0.5 MG (RisperDAL) TABLET PO SCH ×2 (09:34→19:59)
[2022-10-23] MEDS: DULoxetine 30 MG (CYMBALTA) CAP PO SCH ×2 (09:34→19:59)
[2022-10-23] MEDS: APIXABAN 2.5 MG (ELIQUIS) TABLET PO SCH ×2 (09:34→19:59)
[2022-10-23] MEDS: BENZONATATE 100 MG (TESSALON) CAPSULE PO SCH ×3 (09:34→19:59)
[2022-10-23] MEDS: LACTOBACILLUS ACIDOPHILUS (PROBIOTIC) CAPSULE PO SCH (09:35)
[2022-10-23] MEDS: FUROSEMIDE 40 MG (LASIX) TAB PO SCH (09:35)
[2022-10-23] MEDS: PANTOPRAZOLE 40 MG (PROTONIX) TAB PO SCH (09:35)
[2022-10-23] MEDS: DOCUSATE SODIUM 100 MG (COLACE) CAP PO SCH ×2 (09:35→19:59)
[2022-10-23] MEDS: GABAPENTIN 100 MG (NEURONTIN) CAP PO SCH ×2 (09:35→12:50)
[2022-10-23] MEDS: SENNOSIDES 8.6 MG (SENOKOT) TAB PO SCH ×2 (09:35→19:59)
[2022-10-23] MEDS: TAMSULOSIN 0.4 MG (FLOMAX) CAP PO SCH (09:35)
[2022-10-23] MEDS: MICONAZOLE 2% POWDER (DESENEX AF) 90 GM TOP SCH ×2 (09:36→20:00)
[2022-10-23] MEDS: ALPRAZolam 1 MG (XANAX) TAB PO PRN ×2 (10:52→19:59)
--- NOTE | 2022-10-23 12:02 | Progress Note - Cardiology ---
Cardiology SO Progress Note Objective: I&O/Vital Signs 10/23/22 10/23/22 10/23/22 10/23/22 19:57 20:00 21:24 23:18 Temp 36.7 36.5 Pulse 92 84 Resp 20 18 B/P (MAP) 127/60 (82) 122/58 (79) Pulse Ox 99 96 98 O2 Delivery High Flow N/C High Flow N/C High Flow N/C High Flow N/C O2 Flow Rate 7.00 7.00 7.00 7.00 10/24/22 10/24/22 06:51 06:51 Pulse Ox 96 O2 Delivery Nasal Cannula High Flow N/C O2 Flow Rate 7.00 7.00 10/24/22 00:00 Intake Total 2070 ml Output Total 1575 ml Balance 495 ml Weight (Pounds): 165 Weight (Ounces): 7.0 Weight (Calculated Kilograms): 74.470967 Constitutional: AAO x 3, well-developed, well-nourished Respiratory: No accessory muscle use; chest expansion is symmetric, chest is bilaterally symmetric, other (Fair to good, bilateral air entry that is diminished at the bases; basal coarse crackels) Cardiovascular: irregularly irregular, S1 and S2, systolic murmur (Soft CELESTINO at card base) Gastrointestional: No tender; soft; No guarding, No rebound; audible bowel sounds Extremities: No clubbing, No cyanosis, No significant edema Neurologic/Psychiatric: oriented x 3, other (moves all limbs equally) Skin: normal color, warm/dry; No cyanosis, No rash, No ulcerations Results/Procedures: Labs Laboratory Tests 10/23/22 10:51: Glucometer 332H 10/23/22 13:42: Lab Scanned Report Transfusion Reaction Form 10/23/22 15:44: Lab Scanned Report Transfusion Reaction Form 10/23/22 16:21: Glucometer 282H 10/23/22 20:34: Glucometer 344H 10/24/22 05:48: Glucometer 285H 10/24/22 05:49: White Blood Count 9.4, Red Blood Count 4.01, Hemoglobin 9.0L, Hematocrit 30L, Mean Corpuscular Volume 76L, Mean Corpuscular Hemoglobin 22L, Mean Corpuscular Hemoglobin Concent 30L, Red Cell Distribution Width 21.6H, Platelet Count 292, Mean Platelet Volume 9.6, Immature Granulocyte % (Auto) 1, Neutrophils (%) (Auto) 89H, Lymphocytes (%) (Auto) 7L, Monocytes (%) (Auto) 3, Eosinophils (%) (Auto) 0, Basophils (%) (Auto) 0, Neutrophils # (Auto) 8.3H, Lymphocytes # (Auto) 0.7L, Monocytes # (Auto) 0.3, Eosinophils # (Auto) 0.0, Basophils # (Auto) 0.0, Immature Granulocyte # (Auto) 0.1 A/P: Assessment: Chronic A Fib, first document in 2017 at [facility] - chronically on apixaban for stroke prophylaxis - RVR during this hospitalization - rate currently controlled on home dose of Cardizem Ac on ch diastolic CHF - clinically improved Marked anemia of undetermined etiology - managed by medical services CAD - s/p [address] Maza at [facility] in : GREY to LAD, SVG to OM1 and SVG to PDA. Cardiac cath of Oct 15, 2017 (done following an MPI that showed apical ischemia) showed widely patent aortocoronary graft to the distal RCA, widely patent aortocoronary graft to OM system, widely patent left internal mammary artery graft to the distal LAD, normal to hyperdynamic LV systolic function with an ejection fraction of approx 70%, normal LVEDP, no evidence of thoracic aortic aneurysm or dissection, mod-sized infrarenal abdominal aortic aneurysm, mild prox stenosis of the left renal artery - MPI on 06/21/20: mild ant-lat ischemia (technically difficult study due to significant patient motion) normal LVEF - Echo on 06/20/20: LVEF 50-55%, biatrial enlargement, mild to mod TR, pulm htn (PASP approx 60-65 mmHg) H/O GI bleed - with hypovolemic shock during hospitalization of April 16, 2019. GI bleed due to a bleeding prepyloric ulcer (managed by Dr. Lemus) - no recurrence Carotid arterial disease - s/p R CEA with Dr Valenzuela at [facility] in Dec 2017 - s/p L carotid PCI at [facility] in January 2018 (Dr Valenzuela). - Mild carotid arterial disease on carotid u/s of Nov 2019 H/o old lacunar infarction - including R internal capsule (based on w/u of Dec 2017 at [facility]) S/P right hip replacement PAD: - Peripheral angiogram with runoffs of March 2018: Moderate-sized, infrarenal, saccular abdominal aortic aneurysm. A 70% ostial and proximal stenoses of the renal arteries on both sides. 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 Proximal occlusion of the right superficial femoral artery which reconstitutes via collaterals in its distal portion. There is a 2- vessel runoff in the leg. Multiple up to 75% stenoses in the mid and distal portions of the left superficial femoral artery. For these findings she was referred to [facility]. - Arterial Doppler of both legs on 06/22/20: Bilateral lower extremity peripheral vascular disease. There are monophasic waveforms throughout the right lower extreme arterial system which can be seen with more proximal disease. There is a probable stenosis in the mid left SFA where there is some velocity elevation COPD - managed by PCP H/O Tobaccoism - quit 2009 HTN - controlled H/o hypothyroidism - that is followed by her fam [facility] - S/P suprapubic catheter placement per Dr. James on 11-26-2017 GI - S/P umbilical hernia repair on 06-23-[address] Kallie Cintron in Nov 2021 Plan: * HR currently controlled on long-acting Diltiazem * Continue Apixaban for stroke prophylaxis * Monitor labs and correct abnormalities * Anemia improved following transfusion of 1 unit * Management per medical services SATHISH ABAD Oct 23, 2022 12:02
[2022-10-23] MEDS: morphine INJ 4 MG/ML 1 ML (VIAL/SYRINGE) IVP PRN (12:57)
--- NOTE | 2022-10-23 17:16 | Progress Note - Cardiology ---
Cardiology SOAP Progress Note Subjective: Gen malaise and weakness No cp or palp Shortness of breath with activity No n/v/d No focal weakness Objective: I&O/Vital Signs 10/23/22 10/23/22 10/23/22 10/23/22 06:32 08:00 08:19 11:11 Temp 36.5 36.6 Pulse 73 71 89 Resp 18 18 18 B/P (MAP) 121/83 (96) 128/69 (88) Pulse Ox 93 95 97 97 O2 Delivery NIV Bilevel High Flow N/C Nasal Cannula O2 Flow Rate 40.00 7.50 7.50 10/23/22 15:53 Temp 36.5 Pulse 103 Resp 22 B/P (MAP) 103/59 (74) Pulse Ox 93 O2 Delivery High Flow N/C O2 Flow Rate 7.00 10/23/22 00:00 Intake Total 900 ml Output Total 1650 ml Balance -750 ml Weight (Pounds): 165 Weight (Ounces): 7.0 Weight (Calculated Kilograms): 74.305230 Constitutional: AAO x 3, well-developed, well-nourished Respiratory: No accessory muscle use; chest expansion is symmetric, chest is bilaterally symmetric, other (Fair to good, bilateral air entry that is diminished at the bases; basal coarse crackle; insp rhonci over large airway; exp wheezes) Cardiovascular: irregularly irregular, S1 and S2, systolic murmur (Soft CELESTINO at card base) Gastrointestional: No tender; soft; No guarding, No rebound; audible bowel sounds Extremities: No clubbing, No cyanosis, No significant edema Neurologic/Psychiatric: oriented x 3, other (moves all limbs equally) Skin: normal color, warm/dry; No cyanosis, No rash, No ulcerations Results/Procedures: Labs Laboratory Tests 10/22/22 20:49: Glucometer 304H 10/23/22 05:20: Glucometer 230H, White Blood Count 10.5, Red Blood Count 4.18, Hemoglobin 9.3L, Hematocrit 31L, Mean Corpuscular Volume 75L, Mean Corpuscular Hemoglobin 22L, Mean Corpuscular Hemoglobin Concent 30L, Red Cell Distribution Width 21.2H, Platelet Count 318, Mean Platelet Volume 10.0, Immature Granulocyte % (Auto) 0, Neutrophils (%) (Auto) 91H, Lymphocytes (%) (Auto) 6L, Monocytes (%) (Auto) 3, Eosinophils (%) (Auto) 0, Basophils (%) (Auto) 0, Neutrophils # (Auto) 9.6H, Lymphocytes # (Auto) 0.6L, Monocytes # (Auto) 0.3, Eosinophils # (Auto) 0.0, Basophils # (Auto) 0.0, Immature Granulocyte # (Auto) 0.0, Sodium Level 138, Potassium Level 3.6, Chloride Level 99, Carbon Dioxide Level 28, Anion Gap 11, Blood Urea Nitrogen 16, Creatinine 0.76, Estimat Glomerular Filtration Rate 77, BUN/Creatinine Ratio 21, Glucose Level 249H, Calcium Level 8.8 10/23/22 10:51: Glucometer 332H 10/23/22 13:42: Lab Scanned Report Transfusion Reaction Form 10/23/22 15:44: Lab Scanned Report Transfusion Reaction Form 10/23/22 16:21: Glucometer 282H Laboratory Tests 10/22/22 05:20 10/22/22 16:00 10/23/22 05:20 A/P: Assessment: Ac exac of COPD due to lower resp tract infection - Dr Marcelo managing Chronic A Fib, first document in 2017 at [facility] - chronically on apixaban for stroke prophylaxis - RVR during this hospitalization - rate currently controlled on home dose of Cardizem Ac on ch diastolic CHF - clinically improved Marked anemia of undetermined etiology - managed by medical services CAD - s/p [address] Maza at [facility] in : GREY to LAD, SVG to OM1 and SVG to PDA. Cardiac cath of Oct 15, 2017 (done following an MPI that showed apical ischemia) showed widely patent aortocoronary graft to the distal RCA, widely patent aortocoronary graft to OM system, widely patent left internal mammary artery graft to the distal LAD, normal to hyperdynamic LV systolic function with an ejection fraction of approx 70%, normal LVEDP, no evidence of thoracic aortic aneurysm or dissection, mod-sized infrarenal abdominal aortic aneurysm, mild prox stenosis of the left renal artery - MPI on 06/21/20: mild ant-lat ischemia (technically difficult study due to significant patient motion) normal LVEF - Echo on 06/20/20: LVEF 50-55%, biatrial enlargement, mild to mod TR, pulm htn (PASP approx 60-65 mmHg) H/O GI bleed - with hypovolemic shock during hospitalization of April 16, 2019. GI bleed due to a bleeding prepyloric ulcer (managed by Dr. Lemus) - no recurrence Carotid arterial disease - s/p R CEA with Dr Valenzuela at [facility] in Dec 2017 - s/p L carotid PCI at [facility] in January 2018 (Dr Valenzuela). - Mild carotid arterial disease on carotid u/s of Nov 2019 H/o old lacunar infarction - including R internal capsule (based on w/u of Dec 2017 at [facility]) S/P right hip replacement PAD: - Peripheral angiogram with runoffs of March 2018: Moderate-sized, infrarenal, saccular abdominal aortic aneurysm. A 70% ostial and proximal stenoses of the renal arteries on both sides. 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 Proximal occlusion of the right superficial femoral artery which reconstitutes via collaterals in its distal portion. There is a 2- vessel runoff in the leg. Multiple up to 75% stenoses in the mid and distal por tions of the left superficial femoral artery. For these findings she was referred to [facility]. - Arterial Doppler of both legs on 06/22/20: Bilateral lower extremity peripheral vascular disease. There are monophasic waveforms throughout the right lower extreme arterial system which can be seen with more proximal disease. There is a probable stenosis in the mid left SFA where there is some velocity elevation COPD - managed by PCP H/O Tobaccoism - quit 2009 HTN - controlled H/o hypothyroidism - that is followed by her fam y Urology - S/P suprapubic catheter placement per Dr. James on 11-26-2017 GI - S/P umbilical hernia repair on 06-23-[address] Kallie Cintron in Nov 2021 Plan: * HR currently controlled on long-acting Diltiazem * Continue Apixaban for stroke prophylaxis * Monitor labs and correct abnormalities CHELLE GOETZ MD FACP [facility] CCDS Oct 23, 2022 17:16
[2022-10-23] MEDS: GABAPENTIN 600 MG (NEURONTIN) TAB PO SCH (19:59)
[2022-10-23] MEDS: ROSUVASTATIN 10 MG (CRESTOR) TABLET PO SCH (19:59)
--- NOTE | 2022-10-23 21:00 | Progress Note ---
Subjective Subjective/Events-last exam Afebrile, states her breathing is not too terrible today. Objective Exam Last Set of Vital Signs Vital Signs Date Time Temp Pulse Resp B/P (MAP) Pulse Ox O2 Delivery O2 Flow Rate FiO2 10/23/22 20:00 High Flow N/C 7.00 10/23/22 19:57 36.7 92 20 127/60 (82) 99 10/21/22 16:00 40 Capillary Refill : Less Than 3 Seconds I&O Intake and Output 10/23/22 00:00 Intake Total 1250 ml Output Total 2500 ml Balance -1250 ml Intake Oral 1000 ml IV Total 250 ml Output Urine Total 2500 ml # Bowel Movements 1 General: Alert, Mild Distress Lungs: Other (ronchi, slight end expiratory wheeze) Heart: Other (tachycardic) Neuro: Normal Speech Psych/Mental Status: Mood NL Results/Procedures Lab Laboratory Tests 10/23/22 05:20: White Blood Count 10.5, Red Blood Count 4.18, Hemoglobin 9.3L, Hematocrit 31L, Mean Corpuscular Volume 75L, Mean Corpuscular Hemoglobin 22L, Mean Corpuscular Hemoglobin Concent 30L, Red Cell Distribution Width 21.2H, Platelet Count 318, Mean Platelet Volume 10.0, Immature Granulocyte % (Auto) 0, Neutrophils (%) (Aut o) 91H, Lymphocytes (%) (Auto) 6L, Monocytes (%) (Auto) 3, Eosinophils (%) (Auto) 0, Basophils (%) (Auto) 0, Neutrophils # (Auto) 9.6H, Lymphocytes # (Auto) 0.6L, Monocytes # (Auto) 0.3, Eosinophils # (Auto) 0.0, Basophils # (Auto) 0.0, Immature Granulocyte # (Auto) 0.0, Sodium Level 138, Potassium Level 3.6, Chloride Level 99, Carbon Dioxide Level 28, Anion Gap 11, Blood Urea Nitrogen 16, Creatinine 0.76, Estimat Glomerular Filtration Rate 77, BUN/Creatinine Ratio 21, Glucose Level 249H, Glucometer 230H, Calcium Level 8.8 10/23/22 10:51: Glucometer 332H 10/23/22 13:42: Lab Scanned Report Transfusion Reaction Form 10/23/22 15:44: Lab Scanned Report Transfusion Reaction Form 10/23/22 16:21: Glucometer 282H 10/23/22 20:34: Glucometer 344H Assessment/Plan Assessment/Plan (1) Respiratory failure Status: Acute Assessment & Plan: Secondary to COPD exacerbation, initially requiring bipap, now on high flow nasal cannula, but still at 7 lpm and with some increased work of breathing. On cefepime and solumedrol 40 mg q6 hours. Qualifiers: Qualified Codes: J96.21 - Acute and chronic respiratory failure with hypoxia ; J96.22 - Acute and chronic respiratory failure with hypercapnia (2) COPD exacerbation Status: Acute (3) HTN (hypertension) Status: Chronic (4) Atrial fibrillation with rapid ventricular response Status: Acute Assessment & Plan: Initially requiring cardizem drip, is on apixaban for stroke prophylaxis, appreciate Cardiology recommendations (5) Peripheral vascular disease (6) Coronary artery disease Status: Chronic (7) CHF (congestive heart failure) Status: Acute Assessment & Plan: Cardiology consulted, appreciate recommendations. On furosemide. Qualifiers: Qualified Codes: I50.33 - Acute on chronic diastolic (congestive) heart failure (8) Pneumonia Status: Acute Assessment & Plan: CXR with diffuse findings of congestion, possible superimposed infection. On cefepime. (9) Sepsis Status: Acute Assessment & Plan: Febrile, tachycardic, tachypneic on admit. LA okay. Suspect secondary to pneumonia. Cefepime. (10) DVT prophylaxis Status: Acute Assessment & Plan: On apixaban for a fib. SHARIF JOHNSON MD Oct 23, 2022 21:00
[2022-10-24] MEDS: CEFEPIME 1,000 MG/NS 50 ML IVPB IV SCH ×8 (00:02→22:51)
[2022-10-24] MEDS: methylPREDNISolone 40 MG/ML (Solu-MEDROL) VIAL IV SCH ×3 (00:02→17:32)
[2022-10-24] MEDS: KCL 10 MEQ TAB (MICRO K) PO SCH (05:48)
[2022-10-24] MEDS: inSUlin ASPART (NovoLOG) 1 UNIT/0.01 ML (CHARGE PER UNIT) SC SCH ×4 (05:54→21:15)
[2022-10-24 06:00] LABS: BASOPHILS % (AUTO) 0 % (0-10); EOSINOPHILS % (AUTO) 0 % (0-10); HEMATOCRIT 30 % (35-52); LYMPHOCYTES # (AUTO) 0.7 10^3/uL (1.0-4.0); LYMPHOCYTES % (AUTO) 7 % (12-44); MEAN CORPUSCULAR HEMOGLOBIN 22 pg (25-34); MEAN CORPUSCULAR HGB CONC 30 g/dL (32-36); MEAN CORPUSCULAR VOLUME 76 fL (80-99); MEAN PLATELET VOLUME 9.6 fL (9.0-12.2); MONOCYTES # (AUTO) 0.3 10^3/uL (0.0-1.0); MONOCYTES % (AUTO) 3 % (0-12); NEUTROPHILS # (AUTO) 8.3 10^3/uL (1.8-7.8); NEUTROPHILS % (AUTO) 89 % (42-75); PLATELET COUNT 292 10^3/uL (130-400); WHITE BLOOD COUNT 9.4 10^3/uL (4.3-11.0)
[2022-10-24] MEDS: ALPRAZolam 1 MG (XANAX) TAB PO PRN ×2 (06:29→11:22)
[2022-10-24] MEDS: RT-ALBUTEROL/IPRATROPIUM 3 ML (DUONEB) VIAL INH SCH ×2 (06:48→21:06)
[2022-10-24] MEDS: RT--FLUTICASONE/SALMETEROL 232-14 (AIRDUO RespiCLICK) IH SCH ×2 (06:48→21:06)
[2022-10-24 07:56] VITALS: BP 100/53
[2022-10-24 09:25] VITALS: BP 127/58
[2022-10-24] MEDS: GABAPENTIN 100 MG (NEURONTIN) CAP PO SCH ×2 (09:27→11:22)
[2022-10-24] MEDS: PANTOPRAZOLE 40 MG (PROTONIX) TAB PO SCH (09:27)
[2022-10-24] MEDS: DULoxetine 30 MG (CYMBALTA) CAP PO SCH ×2 (09:27→21:14)
[2022-10-24] MEDS: BENZONATATE 100 MG (TESSALON) CAPSULE PO SCH ×3 (09:27→21:14)
[2022-10-24] MEDS: SENNOSIDES 8.6 MG (SENOKOT) TAB PO SCH ×2 (09:27→21:13)
[2022-10-24] MEDS: TAMSULOSIN 0.4 MG (FLOMAX) CAP PO SCH (09:27)
[2022-10-24] MEDS: LACTOBACILLUS ACIDOPHILUS (PROBIOTIC) CAPSULE PO SCH (09:27)
[2022-10-24] MEDS: DOCUSATE SODIUM 100 MG (COLACE) CAP PO SCH ×2 (09:27→21:14)
[2022-10-24] MEDS: MICONAZOLE 2% POWDER (DESENEX AF) 90 GM TOP SCH ×2 (09:28→21:16)
[2022-10-24] MEDS: risperiDONE 0.5 MG (RisperDAL) TABLET PO SCH ×2 (09:28→21:14)
[2022-10-24] MEDS: FUROSEMIDE 40 MG (LASIX) TAB PO SCH (09:28)
[2022-10-24] MEDS: APIXABAN 2.5 MG (ELIQUIS) TABLET PO SCH ×2 (09:28→21:14)
[2022-10-24] MEDS: RT-ALBUTEROL/IPRATROPIUM 3 ML (DUONEB) VIAL INH PRN (09:37)
--- NOTE | 2022-10-24 11:33 | Progress Note - Cardiology ---
Cardiology SOAP Progress Note Subjective: C/O needing her "anxiety medication" this morning No c/o CP SOB at her baseline Objective: I&O/Vital Signs 10/24/22 10/24/22 10/25/22 10/25/22 21:14 21:45 00:00 03:48 Temp 37.0 37.0 36.0 36.0 Pulse 77 77 Resp 20 B/P (MAP) 110/57 (74) Pulse Ox 98 98 O2 Delivery High Flow N/C O2 Flow Rate 7.00 7.00 10/25/22 10/25/22 10/25/22 07:47 08:53 08:57 Temp 36.2 Pulse 66 Resp 18 B/P (MAP) 107/62 (77) Pulse Ox 95 93 O2 Delivery Nasal Cannula High Flow N/C Nasal Cannula O2 Flow Rate 7.00 7.00 7.00 10/25/22 00:00 Intake Total 1470 ml Output Total 1250 ml Balance 220 ml Weight (Pounds): 165 Weight (Ounces): 7.0 Weight (Calculated Kilograms): 74.891701 Constitutional: AAO x 3, well-developed, well-nourished Respiratory: No accessory muscle use; chest expansion is symmetric, chest is bilaterally symmetric, other (Fair to good, bilateral air entry that is diminished at the bases; basal coarse crackle; insp rhonci over large airway; exp wheezes) Cardiovascular: irregularly irregular, S1 and S2, systolic murmur (Soft CELESTINO at card base) Gastrointestional: No tender; soft; No guarding, No rebound; audible bowel sounds Extremities: No clubbing, No cyanosis, No significant edema Neurologic/Psychiatric: oriented x 3, other (moves all limbs equally) Skin: normal color, warm/dry; No cyanosis, No rash, No ulcerations Results/Procedures: Labs Laboratory Tests 10/24/22 11:09: Glucometer 362H 10/24/22 15:29: Glucometer 463*H 10/24/22 15:31: Glucometer 439*H 10/24/22 20:34: Glucometer 378H 10/25/22 05:26: White Blood Count 22.6H, Red Blood Count 4.13, Hemoglobin 9.2L, Hematocrit 31L, Mean Corpuscular Volume 75L, Mean Corpuscular Hemoglobin 22L, Mean Corpuscular Hemoglobin Concent 30L, Red Cell Distribution Width 21.7H, Platelet Count 289, Mean Platelet Volume 10.1, Immature Granulocyte % (Auto) 1, Neutrophils (%) (Auto) 93H, Lymphocytes (%) (Auto) 3L, Monocytes (%) (Auto) 4, Eosinophils (%) (Auto) 0, Basophils (%) (Auto) 0, Neutrophils # (Auto) 20.9H, Lymphocytes # (Auto) 0.6L, Monocytes # (Auto) 0.9, Eosinophils # (Auto) 0.0, Basophils # (Auto) 0.0, Immature Granulocyte # (Auto) 0.1 10/25/22 05:48: Glucometer 266H A/P: Assessment: Ac exac of COPD due to lower resp tract infection - Dr Marcelo managing Chronic A Fib, first document in 2017 at [facility] - chronically on apixaban for stroke prophylaxis - RVR during this hospitalization - rate currently controlled on home dose of Cardizem Ac on ch diastolic CHF - clinically improved Anemia of undetermined etiology - managed by medical services CAD - s/p [address] Maza at [facility] in : GREY to LAD, SVG to OM1 and SVG to PDA. Cardiac cath of Oct 15, 2017 (done following an MPI that showed apical ischemia) showed widely patent aortocoronary graft to the distal RCA, widely patent aortocoronary graft to OM system, widely patent left internal mammary artery graft to the distal LAD, normal to hyperdynamic LV systolic function with an ejection fraction of approx 70%, normal LVEDP, no evidence of thoracic aortic aneurysm or dissection, mod-sized infrarenal abdominal aortic aneurysm, mild prox stenosis of the left renal artery - MPI on 06/21/20: mild ant-lat ischemia (technically difficult study due to significant patient motion) normal LVEF - Echo on 06/20/20: LVEF 50-55%, biatrial enlargement, mild to mod TR, pulm htn (PASP approx 60-65 mmHg) H/O GI bleed - with hypovolemic shock during hospitalization of April 16, 2019. GI bleed due to a bleeding prepyloric ulcer (managed by Dr. Lemus) - no recurrence Carotid arterial disease - s/p R CEA with Dr Valenzuela at [facility] in Dec 2017 - s/p L carotid PCI at [facility] in January 2018 (Dr Valenzuela). - Mild carotid arterial disease on carotid u/s of Nov 2019 H/o old lacunar infarction - including R internal capsule (based on w/u of Dec 2017 at [facility]) S/P right hip replacement PAD: - Peripheral angiogram with runoffs of March 2018: Moderate-sized, infrarenal, saccular abdominal aortic aneurysm. A 70% ostial and proximal stenoses of the renal arteries on both sides. 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 Proximal occlusion of the right superficial femoral artery which reconstitutes via collaterals in its distal portion. There is a 2- vessel runoff in the leg. Multiple up to 75% stenoses in the mid and distal portions of the left superficial femoral artery. For these findings she was referred to [facility]. - Arterial Doppler of both legs on 06/22/20: Bilateral lower extremity peripheral vascular disease. There are monophasic waveforms throughout the right lower extreme arterial system which can be seen with more proximal disease. There is a probable stenosis in the mid left SFA where there is some velocity elevation COPD - managed by PCP H/O Tobaccoism - quit 2009 HTN - controlled H/o hypothyroidism - that is followed by her fam phy Urology - S/P suprapubic catheter placement per Dr. James on 11-26-2017 GI - S/P umbilical hernia repair on 06-23-[address] Kallie Cintron in Nov 2021 Plan: * HR currently controlled on long-acting Diltiazem * Continue Apixaban for stroke prophylaxis * Monitor labs and correct abnormalities SATHISH ABAD Oct 24, 2022 11:33
[2022-10-24 15:42] VITALS: BP 115/51
[2022-10-24] MEDS: LORazepam INJ 2 MG/ML (ATIVAN) VIAL IVP PRN ×2 (15:56→21:13)
[2022-10-24] MEDS ORDERED: inSUlin ASPART (NovoLOG) 1 UNIT/0.01 ML (CHARGE PER UNIT) SC NR (16:00)
--- NOTE | 2022-10-24 16:11 | Progress Note - Cardiology ---
Cardiology SOAP Progress Note Subjective: Gen malaise Continues to cough No cp No palp No syncope No swelling No n/v/d Objective: I&O/Vital Signs 10/24/22 10/24/22 10/24/22 10/24/22 06:51 06:51 07:56 08:00 Temp 35.8 Pulse 71 Resp 18 B/P (MAP) 100/53 (69) Pulse Ox 96 97 97 O2 Delivery Nasal Cannula High Flow N/C Nasal Cannula High Flow N/C O2 Flow Rate 7.00 7.00 7.50 7.50 10/24/22 10/24/22 09:25 15:42 Temp 37.0 Pulse 108 90 Resp 22 B/P (MAP) 127/58 (81) 115/51 (72) Pulse Ox 98 O2 Delivery High Flow N/C O2 Flow Rate 7.00 10/24/22 00:00 Intake Total 2070 ml Output Total 1575 ml Balance 495 ml Weight (Pounds): 165 Weight (Ounces): 7.0 Weight (Calculated Kilograms): 74.964892 Constitutional: AAO x 3, well-developed, well-nourished Respiratory: No accessory muscle use; chest expansion is symmetric, chest is bilaterally symmetric, other (Fair to good, bilateral air entry that is diminished at the bases; basal coarse crackle; insp rhonci over large airway; exp wheezes) Cardiovascular: irregularly irregular, S1 and S2, systolic murmur (Soft CELESTINO at card base) Gastrointestional: No tender; soft; No guarding, No rebound; audible bowel sounds Extremities: No clubbing, No cyanosis, No significant edema Neurologic/Psychiatric: oriented x 3, other (moves all limbs equally) Skin: normal color, warm/dry; No cyanosis, No rash, No ulcerations Results/Procedures: Labs Laboratory Tests 10/23/22 16:21: Glucometer 282H 10/23/22 20:34: Glucometer 344H 10/24/22 05:48: Glucometer 285H 10/24/22 05:49: White Blood Count 9.4, Red Blood Count 4.01, Hemoglobin 9.0L, Hematocrit 30L, Mean Corpuscular Volume 76L, Mean Corpuscular Hemoglobin 22L, Mean Corpuscular Hemoglobin Concent 30L, Red Cell Distribution Width 21.6H, Platelet Count 292, Mean Platelet Volume 9.6, Immature Granulocyte % (Auto) 1, Neutrophils (%) (Auto) 89H, Lymphocytes (%) (Auto) 7L, Monocytes (%) (Auto) 3, Eosinophils (%) (Auto) 0, Basophils (%) (Auto) 0, Neutrophils # (Auto) 8.3H, Lymphocytes # (Auto) 0.7L, Monocytes # (Auto) 0.3, Eosinophils # (Auto) 0.0, Basophils # (Auto) 0.0, Immature Granulocyte # (Auto) 0.1 10/24/22 11:09: Glucometer 362H 10/24/22 15:29: Glucometer 463*H 10/24/22 15:31: Glucometer 439*H Laboratory Tests 10/23/22 05:20 10/24/22 05:49 A/P: Assessment: Ac exac of COPD due to lower resp tract infection - Dr Marcelo managing Chronic A Fib, first document in 2017 at [facility] - chronically on apixaban for stroke prophylaxis - RVR during this hospitalization - rate currently controlled on home dose of Cardizem Ac on ch diastolic CHF - clinically improved Anemia of undetermined etiology - managed by medical services CAD - s/p [address] Maza at [facility] in : GREY to LAD, SVG to OM1 and SVG to PDA. Cardiac cath of Oct 15, 2017 (done following an MPI that showed apical ischemia) showed widely patent aortocoronary graft to the distal RCA, widely patent aortocoronary graft to OM system, widely patent left internal mammary artery graft to the distal LAD, normal to hyperdynamic LV systolic function with an ejection fraction of approx 70%, normal LVEDP, no evidence of thoracic aortic aneurysm or dissection, mod-sized infrarenal abdominal aortic aneurysm, mild prox stenosis of the left renal artery - MPI on 06/21/20: mild ant-lat ischemia (technically difficult study due to significant patient motion) normal LVEF - Echo on 06/20/20: LVEF 50-55%, biatrial enlargement, mild to mod TR, pulm htn (PASP approx 60-65 mmHg) H/O GI bleed - with hypovolemic shock during hospitalization of April 16, 2019. GI bleed due to a bleeding prepyloric ulcer (managed by Dr. Lemus) - no recurrence Carotid arterial disease - s/p R CEA with Dr Valenzuela at [facility] in Dec 2017 - s/p L carotid PCI at [facility] in January 2018 (Dr Valenzuela). - Mild carotid arterial disease on carotid u/s of Nov 2019 H/o old lacunar infarction - including R internal capsule (based on w/u of Dec 2017 at [facility]) S/P right hip replacement PAD: - Peripheral angiogram with runoffs of March 2018: Moderate-sized, infrarenal, saccular abdominal aortic aneurysm. A 70% ostial and proximal stenoses of the renal arteries on both sides. 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 Proximal occlusion of the right superficial femoral artery which reconstitutes via collaterals in its distal portion. There is a 2- vessel runoff in the leg. Multiple up to 75% stenoses in the mid and distal portions of the left superficial femoral artery. For these findings she was referred to [facility]. - Arterial Doppler of both legs on 06/22/20: Bilateral lower extremity peripheral vascular disease. There are monophasic waveforms throughout the right lower extreme arterial system which can be seen with more proximal disease. There is a probable stenosis in the mid left SFA where there is some velocity elevation COPD - managed by PCP H/O Tobaccoism - quit 2009 HTN - controlled H/o hypothyroidism - that is followed by her fam phy Urology - S/P suprapubic catheter placement per Dr. James on 11-26-2017 GI - S/P umbilical hernia repair on 06-23-[address] Kallie Cintron in Nov 2021 Plan: * HR currently controlled on long-acting Diltiazem * Continue Apixaban for stroke prophylaxis * Monitor labs and correct abnormalities CHELLE GOETZ MD FACP [facility] Oct 24, 2022 16:11
--- NOTE | 2022-10-24 18:19 | Progress Note ---
Subjective Subjective/Events-last exam Pt feeling okay today per her report. Slow to answer, but appropriate. Sitting up in bed, in less respiratory distress than yesterday. Objective Exam Last Set of Vital Signs Vital Signs Date Time Temp Pulse Resp B/P (MAP) Pulse Ox O2 Delivery O2 Flow Rate FiO2 10/24/22 15:42 37.0 90 22 115/51 (72) 98 High Flow N/C 7.00 10/21/22 16:00 40 Capillary Refill : Less Than 3 Seconds I&O Intake and Output 10/24/22 00:00 Intake Total 2320 ml Output Total 1675 ml Balance 645 ml Intake Oral 2220 ml IV Total 100 ml Output Urine Total 1675 ml # Voids 2 General: Alert, Mild Distress Lungs: Other (diffuse wheezing) Heart: Regular Rate Extremities: Other (trace edema) Psych/Mental Status: Mood NL Results/Procedures Lab Laboratory Tests 10/23/22 20:34: Glucometer 344H 10/24/22 05:48: Glucometer 285H 10/24/22 05:49: White Blood Count 9.4, Red Blood Count 4.01, Hemoglobin 9.0L, Hematocrit 30L, Mean Corpuscular Volume 76L, Mean Corpuscular Hemoglobin 22L, Mean Corpuscular Hemoglobin Concent 30L, Red Cell Distribution Width 21.6H, Platelet Count 292, Mean Platelet Volume 9.6, Immature Granulocyte % (Auto) 1, Neutrophils (%) (Auto) 89H, Lymphocytes (%) (Auto) 7L, Monocytes (%) (Auto) 3, Eosinophils (%) (Auto) 0, Basophils (%) (Auto) 0, Neutrophils # (Auto) 8.3H, Lymphocytes # (Auto) 0.7L, Monocytes # (Auto) 0.3, Eosinophils # (Auto) 0.0, Basophils # (Auto) 0.0, Immature Granulocyte # (Auto) 0.1 10/24/22 11:09: Glucometer 362H 10/24/22 15:29: Glucometer 463*H 10/24/22 15:31: Glucometer 439*H Assessment/Plan Assessment/Plan (1) Respiratory failure Status: Acute Assessment & Plan: Secondary to COPD exacerbation, initially requiring bipap, now on high flow nasal cannula, but still at 7 lpm and with some increased work of breathing. On cefepime and solumedrol 40 mg q6 hours. /- decrease solumedrol to q12 hours, remains on 7 lpm but with improved work of breathing. Continue cefepime. Qualifiers: Qualified Codes: J96.21 - Acute and chronic respiratory failure with hypoxia; J96.22 - Acute and chronic respiratory failure with hypercapnia (2) COPD exacerbation Status: Acute (3) HTN (hypertension) Status: Chronic (4) Atrial fibrillation with rapid ventricular response Status: Acute Assessment & Plan: Initially requiring cardizem drip, is on apixaban for stroke prophylaxis, appreciate Cardiology recommendations (5) Peripheral vascular disease (6) Coronary artery disease Status: Chronic (7) CHF (congestive heart failure) Status: Acute Assessment & Plan: Cardiology consulted, appreciate recommendations. On furosemide. Qualifiers: Qualified Codes: I50.33 - Acute on chronic diastolic (congestive) heart failure (8) Pneumonia Status: Acute Assessment & Plan: CXR with diffuse findings of congestion, possible superimposed infection. On cefepime. (9) Sepsis Status: Acute Assessment & Plan: Febrile, tachycardic, tachypneic on admit. LA okay. Suspect secondary to pneumonia. Cefepime. (10) DVT prophylaxis Status: Acute Assessment & Plan: On apixaban for a fib. SHARIF JOHNSON MD Oct 24, 2022 18:19
[2022-10-24] MEDS: ROSUVASTATIN 10 MG (CRESTOR) TABLET PO SCH (21:14)
[2022-10-24] MEDS: MELATONIN 3 MG TABLET PO PRN (21:14)
[2022-10-24] MEDS: GABAPENTIN 600 MG (NEURONTIN) TAB PO SCH (21:14)
[2022-10-25] VITALS: BP 110/57
[2022-10-25 03:48] VITALS: BP 110/57
[2022-10-25 05:36] LABS: BASOPHILS % (AUTO) 0 % (0-10); EOSINOPHILS % (AUTO) 0 % (0-10); HEMATOCRIT 31 % (35-52); HEMOGLOBIN 9.2 g/dL (11.5-16.0); LYMPHOCYTES # (AUTO) 0.6 10^3/uL (1.0-4.0); LYMPHOCYTES % (AUTO) 3 % (12-44); MEAN CORPUSCULAR HEMOGLOBIN 22 pg (25-34); MEAN CORPUSCULAR HGB CONC 30 g/dL (32-36); MEAN CORPUSCULAR VOLUME 75 fL (80-99); MEAN PLATELET VOLUME 10.1 fL (9.0-12.2); MONOCYTES # (AUTO) 0.9 10^3/uL (0.0-1.0); MONOCYTES % (AUTO) 4 % (0-12); NEUTROPHILS # (AUTO) 20.9 10^3/uL (1.8-7.8); NEUTROPHILS % (AUTO) 93 % (42-75); PLATELET COUNT 289 10^3/uL (130-400); WHITE BLOOD COUNT 22.6 10^3/uL (4.3-11.0)
[2022-10-25] MEDS: methylPREDNISolone 40 MG/ML (Solu-MEDROL) VIAL IV SCH (06:36)
[2022-10-25] MEDS: KCL 10 MEQ TAB (MICRO K) PO SCH (06:36)
[2022-10-25] MEDS: inSUlin ASPART (NovoLOG) 1 UNIT/0.01 ML (CHARGE PER UNIT) SC SCH ×4 (06:36→21:43)
[2022-10-25] MEDS: CEFEPIME 1,000 MG/NS 50 ML IVPB IV SCH ×4 (06:37→16:20)
[2022-10-25 07:47] VITALS: BP 107/62
[2022-10-25] MEDS: GABAPENTIN 100 MG (NEURONTIN) CAP PO SCH ×2 (08:46→13:52)
[2022-10-25] MEDS: DOCUSATE SODIUM 100 MG (COLACE) CAP PO SCH ×2 (08:46→21:43)
[2022-10-25] MEDS: BENZONATATE 100 MG (TESSALON) CAPSULE PO SCH ×3 (08:46→21:43)
[2022-10-25] MEDS: DULoxetine 30 MG (CYMBALTA) CAP PO SCH ×2 (08:46→21:43)
[2022-10-25] MEDS: ALPRAZolam 0.5 MG (XANAX) TAB PO PRN (08:46)
[2022-10-25] MEDS: LACTOBACILLUS ACIDOPHILUS (PROBIOTIC) CAPSULE PO SCH (08:46)
[2022-10-25] MEDS: MICONAZOLE 2% POWDER (DESENEX AF) 90 GM TOP SCH ×2 (08:47→21:44)
[2022-10-25] MEDS: TAMSULOSIN 0.4 MG (FLOMAX) CAP PO SCH (08:47)
[2022-10-25] MEDS: PANTOPRAZOLE 40 MG (PROTONIX) TAB PO SCH (08:47)
[2022-10-25] MEDS: SENNOSIDES 8.6 MG (SENOKOT) TAB PO SCH ×2 (08:47→21:43)
[2022-10-25] MEDS: APIXABAN 2.5 MG (ELIQUIS) TABLET PO SCH ×2 (08:47→21:43)
[2022-10-25] MEDS: risperiDONE 0.5 MG (RisperDAL) TABLET PO SCH ×2 (08:47→21:43)
[2022-10-25] MEDS: FUROSEMIDE 40 MG (LASIX) TAB PO SCH (08:47)
[2022-10-25] MEDS: RT-ALBUTEROL/IPRATROPIUM 3 ML (DUONEB) VIAL INH SCH ×3 (08:51→22:09)
[2022-10-25] MEDS: RT--FLUTICASONE/SALMETEROL 232-14 (AIRDUO RespiCLICK) IH SCH ×2 (08:52→22:09)
--- NOTE | 2022-10-25 09:16 | Progress Note - Cardiology ---
Cardiology SOAP Progress Note Objective: I&O/Vital Signs 10/25/22 10/25/22 10/25/22 10/26/22 20:00 22:09 23:36 03:18 Temp 36.5 Pulse 97 Resp 18 B/P (MAP) 121/74 (90) Pulse Ox 94 92 99 O2 Delivery High Flow N/C High Flow N/C Nasal Cannula High Flow N/C O2 Flow Rate 7.00 7.00 7.00 7.00 10/26/22 00:00 Intake Total 1670 ml Output Total 405 ml Balance 1265 ml Weight (Pounds): 165 Weight (Ounces): 7.0 Weight (Calculated Kilograms): 74.258438 Constitutional: AAO x 3, well-developed, well-nourished Respiratory: No accessory muscle use; chest expansion is symmetric, chest is bilaterally symmetric, other (Fair to good, bilateral air entry that is diminished at the bases; basal coarse crackle; insp rhonci over large airway; exp wheezes) Cardiovascular: irregularly irregular, S1 and S2, systolic murmur (Soft CELESTINO at card base) Gastrointestional: No tender; soft; No guarding, No rebound; audible bowel sounds Extremities: No clubbing, No cyanosis, No significant edema Neurologic/Psychiatric: oriented x 3, other (moves all limbs equally) Skin: normal color, warm/dry; No cyanosis, No rash, No ulcerations Results/Procedures: Labs Laboratory Tests 10/25/22 11:37: Glucometer 296H 10/25/22 15:49: Glucometer 279H 10/25/22 19:37: Glucometer 223H 10/26/22 05:48: White Blood Count 16.7H, Red Blood Count 4.06, Hemoglobin 9.3L, Hematocrit 31L, Mean Corpuscular Volume 75L, Mean Corpuscular Hemoglobin 23L, Mean Corpuscular Hemoglobin Concent 31L, Red Cell Distribution Width 22.5H, Platelet Count 302, Mean Platelet Volume 10.3, Immature Granulocyte % (Auto) 1, Neutrophils (%) ( Auto) 89H, Lymphocytes (%) (Auto) 5L, Monocytes (%) (Auto) 4, Eosinophils (%) (Auto) 0, Basophils (%) (Auto) 0, Neutrophils # (Auto) 15.0H, Lymphocytes # (Auto) 0.8L, Monocytes # (Auto) 0.7, Eosinophils # (Auto) 0.0, Basophils # (Auto) 0.0, Immature Granulocyte # (Auto) 0.2H, Neutrophils % (Manual) 96, Lymphocytes % (Manual) 2, Monocytes % (Manual) 2, Hypochromasia MODERATE, Anisocytosis SLIGHT, Microcytosis MODERATE, Sodium Level 134L, Potassium Level 3.9, Chloride Level 94L, Carbon Dioxide Level 29, Anion Gap 11, Blood Urea Nitrogen 27H, Creatinine 0.83, Estimat Glomerular Filtration Rate 69, BUN/Creat inine Ratio 33, Glucose Level 286H, Calcium Level 8.9 10/26/22 06:21: Glucometer 269H A/P: Assessment: Ac exac of COPD due to lower resp tract infection - Dr Marcelo managing Chronic A Fib, first document in 2017 at [facility] - chronically on apixaban for stroke prophylaxis - RVR during this hospitalization - rate currently controlled on home dose of Cardizem Ac on ch diastolic CHF - clinically improved Anemia of undetermined etiology - managed by medical services CAD - s/p [address] Maza at [facility] in : GREY to LAD, SVG to OM1 and SVG to PDA. Cardiac cath of Oct 15, 2017 (done following an MPI that showed apical ischemia) showed widely patent aortocoronary graft to the distal RCA, widely patent aortocoronary graft to OM system, widely patent left internal mammary artery graft to the distal LAD, normal to hyperdynamic LV systolic function with an ejection fraction of approx 70%, normal LVEDP, no evidence of thoracic aortic aneurysm or dissection, mod-sized infrarenal abdominal aortic aneurysm, mild prox stenosis of the left renal artery - MPI on 06/21/20: mild ant-lat ischemia (technically difficult study due to significant patient motion) normal LVEF - Echo on 06/20/20: LVEF 50-55%, biatrial enlargement, mild to mod TR, pulm htn (PASP approx 60-65 mmHg) H/O GI bleed - with hypovolemic shock during hospitalization of April 16, 2019. GI bleed due to a bleeding prepyloric ulcer (managed by Dr. Lemus) - no recurrence Carotid arterial disease - s/p R CEA with Dr Valenzuela at [facility] in Dec 2017 - s/p L carotid PCI at [facility] in January 2018 (Dr Valenzuela). - Mild carotid arterial disease on carotid u/s of Nov 2019 H/o old lacunar infarction - including R internal capsule (based on w/u of Dec 2017 at [facility]) S/P right hip replacement PAD: - Peripheral angiogram with runoffs of March 2018: Moderate-sized, infrarenal, saccular abdominal aortic aneurysm. A 70% ostial and proximal stenoses of the renal arteries on both sides. 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 Proximal occlusion of the right superficial femoral artery which reconstitutes via collaterals in its distal portion. There is a 2- vessel runoff in the leg. Multiple up to 75% stenoses in the mid and distal portions of the left superficial femoral artery. For these findings she was referred to [facility]. - Arterial Doppler of both legs on 06/22/20: Bilateral lower extremity peripheral vascular disease. There are monophasic waveforms throughout the right lower extreme arterial system which can be seen with more proximal disease. There is a probable stenosis in the mid left SFA where there is some velocity elevation COPD - managed by PCP H/O Tobaccoism - quit 2009 HTN - controlled H/o hypothyroidism - that is followed by her fam [facility] - S/P suprapubic catheter placement per Dr. James on 11-26-2017 GI - S/P umbilical hernia repair on 06-23-[address] Kallie Cintron in Nov 2021 Plan: * HR currently controlled on long-acting Diltiazem * Continue Apixaban for stroke prophylaxis * Acute on chronic exacerbation of COPD with prob pneumonia - management per medical services * Monitor labs and correct abnormalities SATHISH ABAD Oct 25, 2022 09:16
--- NOTE | 2022-10-25 10:09 | Progress Note ---
Subjective Subjective/Events-last exam Pt states she is feeling fairly good. Objective Exam Last Set of Vital Signs Vital Signs Date Time Temp Pulse Resp B/P (MAP) Pulse Ox O2 Delivery O2 Flow Rate FiO2 10/25/22 08:57 Nasal Cannula 7.00 10/25/22 08:53 93 10/25/22 07:47 36.2 66 18 107/62 (77) 10/21/22 16:00 40 Capillary Refill : Less Than 3 Seconds I&O Intake and Output 10/25/22 00:00 Intake Total 1670 ml Output Total 2000 ml Balance -330 ml Intake Oral 1570 ml IV Total 100 ml Output Urine Total 2000 ml General: Alert, Mild Distress Lungs: Other (diffuse expiratory wheezing) Heart: Regular Rate Psych/Mental Status: Mood NL Results/Procedures Lab Laboratory Tests 10/24/22 11:09: Glucometer 362H 10/24/22 15:29: Glucometer 463*H 10/24/22 15:31: Glucometer 439*H 10/24/22 20:34: Glucometer 378H 10/25/22 05:26: White Blood Count 22.6H, Red Blood Count 4.13, Hemoglobin 9.2L, Hematocrit 31L, Mean Corpuscular Volume 75L, Mean Corpuscular Hemoglobin 22L, Mean Corpuscular Hemoglobin Concent 30L, Red Cell Distribution Width 21.7H, Platelet Count 289, Mean Platelet Volume 10.1, Immature Granulocyte % (Auto) 1, Neutrophils (%) (Auto) 93H, Lymphocytes (%) (Auto) 3L, Monocytes (%) (Auto) 4, Eosinophils (%) (Auto) 0, Basophils (%) (Auto) 0, Neutrophils # (Auto) 20.9H, Lymphocytes # (Auto) 0.6L, Monocytes # (Auto) 0.9, Eosinophils # (Auto) 0.0, Basophils # (Auto) 0.0, Immature Granulocyte # (Auto) 0.1 10/25/22 05:48: Glucometer 266H Assessment/Plan Assessment/Plan (1) Respiratory failure Status: Acute Assessment & Plan: Secondary to COPD exacerbation, initially requiring bipap, now on high flow nasal cannula, but still at 7 lpm and with some increased work of breathing. On cefepime and solumedrol 40 mg q6 hours. 10/24- decrease solumedrol to q12 hours, remains on 7 lpm but with improved work of breathing. Continue cefepime. 10/25- incrementally improved, change to oral prednisone and continue to wean O2 as tolerated. Qualifiers: Qualified Codes: J96.21 - Acute and chronic respiratory failure with hypoxia; J96.22 - Acute and chronic respiratory failure with hypercapnia (2) COPD exacerbation Status: Acute (3) HTN (hypertension) Status: Chronic (4) Atrial fibrillation with rapid ventricular response Status: Acute Assessment & Plan: Initially requiring cardizem drip, is on apixaban for stroke prophylaxis, appreciate Cardiology recommendations (5) Peripheral vascular disease (6) Coronary artery disease Status: Chronic (7) CHF (congestive heart failure) Status: Acute Assessment & Plan: Cardiology consulted, appreciate recommendations. On furosemide. Qualifiers: Qualified Codes: I50.33 - Acute on chronic diastolic (congestive) heart failure (8) Pneumonia Status: Acute Assessment & Plan: CXR with diffuse findings of congestion, possible superimposed infection. On cefepime. (9) Sepsis Status: Acute Assessment & Plan: Febrile, tachycardic, tachypneic on admit. LA okay. Suspect secondary to pneumonia. Cefepime. (10) DVT prophylaxis Status: Acute Assessment & Plan: On apixaban for a fib. SHARIF JOHNSON MD Oct 25, 2022 10:09
--- NOTE | 2022-10-25 15:23 | Progress Note - Cardiology ---
Cardiology SOAP Progress Note Subjective: Somnolent but awakens Does not report any new symptoms Objective: I&O/Vital Signs 10/25/22 10/25/22 10/25/22 10/25/22 03:48 07:47 08:00 08:53 Temp 36.0 36.2 Pulse 77 66 Resp 18 B/P (MAP) 107/62 (77) Pulse Ox 98 95 97 93 O2 Delivery Nasal Cannula High Flow N/C High Flow N/C O2 Flow Rate 7.00 7.00 7.00 10/25/22 08:57 O2 Delivery Nasal Cannula O2 Flow Rate 7.00 10/25/22 00:00 Intake Total 1470 ml Output Total 1250 ml Balance 220 ml Weight (Pounds): 165 Weight (Ounces): 7.0 Weight (Calculated Kilograms): 74.675634 Constitutional: AAO x 3, well-developed, well-nourished Respiratory: No accessory muscle use; chest expansion is symmetric, chest is bilaterally symmetric, other (Fair to good, bilateral air entry that is diminished at the bases; basal coarse crackle; insp rhonci over large airway; exp wheezes) Cardiovascular: irregularly irregular, S1 and S2, systolic murmur (Soft CELESTINO at card base) Gastrointestional: No tender; soft; No guarding, No rebound; audible bowel sounds Extremities: No clubbing, No cyanosis, No significant edema Neurologic/Psychiatric: oriented x 3, other (moves all limbs equally) Skin: normal color, warm/dry; No cyanosis, No rash, No ulcerations Results/Procedures: Labs Laboratory Tests 10/24/22 15:29: Glucometer 463*H 10/24/22 15:31: Glucometer 439*H 10/24/22 20:34: Glucometer 378H 10/25/22 05:26: White Blood Count 22.6H, Red Blood Count 4.13, Hemoglobin 9.2L, Hematocrit 31L, Mean Corpuscular Volume 75L, Mean Corpuscular Hemoglobin 22L, Mean Corpuscular Hemoglobin Concent 30L, Red Cell Distribution Width 21.7H, Platelet Count 289, Mean Platelet Volume 10.1, Immature Granulocyte % (Auto) 1, Neutrophils (%) (Auto) 93H, Lymphocytes (%) (Auto) 3L, Monocytes (%) (Auto) 4, Eosinophils (%) (Auto) 0, Basophils (%) (Auto) 0, Neutrophils # (Auto) 20.9H, Lymphocytes # (Auto) 0.6L, Monocytes # (Auto) 0.9, Eosinophils # (Auto) 0.0, Basophils # (Auto) 0.0, Immature Granulocyte # (Auto) 0.1 10/25/22 05:48: Glucometer 266H 10/25/22 11:37: Glucometer 296H Laboratory Tests 10/24/22 05:49 10/25/22 05:26 A/P: Assessment: Ac exac of COPD due to lower resp tract infection - Dr Marcelo managing Chronic A Fib, first document in 2017 at [facility] - chronically on apixaban for stroke prophylaxis - RVR during this hospitalization - rate currently controlled on home dose of Cardizem Ac on ch diastolic CHF - clinically improved Anemia of undetermined etiology - managed by medical services CAD - s/p [address] Maza at [facility] in : GREY to LAD, SVG to OM1 and SVG to PDA. Cardiac cath of Oct 15, 2017 (done following an MPI that showed apical ischemia) showed widely patent aortocoronary graft to the distal RCA, widely patent aortocoronary graft to OM system, widely patent left internal mammary artery graft to the distal LAD, normal to hyperdynamic LV systolic function with an ejection fraction of approx 70%, normal LVEDP, no evidence of thoracic aortic aneurysm or dissection, mod-sized infrarenal abdomi nal aortic aneurysm, mild prox stenosis of the left renal artery - MPI on 06/21/20: mild ant-lat ischemia (technically difficult study due to significant patient motion) normal LVEF - Echo on 06/20/20: LVEF 50-55%, biatrial enlargement, mild to mod TR, pulm htn (PASP approx 60-65 mmHg) H/O GI bleed - with hypovolemic shock during hospitalization of April 16, 2019. GI bleed due to a bleeding prepyloric ulcer (managed by Dr. Lemus) - no recurrence Carotid arterial disease - s/p R CEA with Dr Valenzuela at [facility] in Dec 2017 - s/p L carotid PCI at [facility] in January 2018 (Dr Valenzuela). - Mild carotid arterial disease on carotid u/s of Nov 2019 H/o old lacunar infarction - including R internal capsule (based on w/u of Dec 2017 at [facility]) S/P right hip replacement PAD: - Peripheral angiogram with runoffs of March 2018: Moderate-sized, infrarenal, saccular abdominal aortic aneurysm. A 70% ostial and proximal stenoses of the renal arteries on both sides. 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 Proximal occlusion of the right superficial femoral artery which reconstitutes via collaterals in its distal portion. There is a 2- vessel runoff in the leg. Multiple up to 75% stenoses in the mid and distal portions of the left superficial femoral artery. For these findings she was referred to [facility]. - Arterial Doppler of both legs on 06/22/20: Bilateral lower extremity peripheral vascular disease. There are monophasic waveforms throughout the right lower extreme arterial system which can be seen with more proximal disease. There is a probable stenosis in the mid left SFA where there is some velocity elevation COPD - managed by PCP H/O Tobaccoism - quit 2009 HTN - controlled H/o hypothyroidism - that is followed by her fam [facility] Urology - S/P suprapubic catheter placement per Dr. James on 11-26-2017 GI - S/P umbilical hernia repair on 06-23-[address] Kallie Cintron in Nov 2021 Plan: * HR currently controlled on long-acting Diltiazem * Continue Apixaban for stroke prophylaxis * Acute on chronic exacerbation of COPD with prob pneumonia - management per medical services * Monitor labs and correct abnormalities CHELLE GOETZ MD FACP FAC CCDS Oct 25, 2022 15:23
[2022-10-25 15:30] VITALS: BP 110/54
[2022-10-25] MEDS: ROSUVASTATIN 10 MG (CRESTOR) TABLET PO SCH (21:42)
[2022-10-25] MEDS: GABAPENTIN 600 MG (NEURONTIN) TAB PO SCH (21:43)
[2022-10-25 23:36] VITALS: BP 121/74
[2022-10-26] MEDS: RT-ALBUTEROL/IPRATROPIUM 3 ML (DUONEB) VIAL INH SCH ×4 (03:17→20:05)
[2022-10-26 06:27] LABS: BASOPHILS % (AUTO) 0 % (0-10); EOSINOPHILS % (AUTO) 0 % (0-10); HEMATOCRIT 31 % (35-52); HEMOGLOBIN 9.3 g/dL (11.5-16.0); LYMPHOCYTES # (AUTO) 0.8 10^3/uL (1.0-4.0); LYMPHOCYTES % (AUTO) 5 % (12-44); MEAN CORPUSCULAR HEMOGLOBIN 23 pg (25-34); MEAN CORPUSCULAR HGB CONC 31 g/dL (32-36); MEAN CORPUSCULAR VOLUME 75 fL (80-99); MEAN PLATELET VOLUME 10.3 fL (9.0-12.2); MONOCYTES # (AUTO) 0.7 10^3/uL (0.0-1.0); MONOCYTES % (AUTO) 4 % (0-12); NEUTROPHILS % (AUTO) 89 % (42-75); PLATELET COUNT 302 10^3/uL (130-400); WHITE BLOOD COUNT 16.7 10^3/uL (4.3-11.0)
[2022-10-26] MEDS: inSUlin ASPART (NovoLOG) 1 UNIT/0.01 ML (CHARGE PER UNIT) SC SCH ×4 (06:37→20:35)
[2022-10-26] MEDS: predniSONE 10 MG TAB PO SCH (06:37)
[2022-10-26] MEDS: KCL 10 MEQ TAB (MICRO K) PO SCH (06:37)
[2022-10-26 06:46] LABS: CALCIUM 8.9 MG/DL (8.5-10.1); CREATININE SERUM 0.83 MG/DL (0.60-1.30); POTASSIUM 3.9 MMOL/L (3.6-5.0)
[2022-10-26 06:50] LABS: HYPOCHROMASIA MODERATE; LYMPHOCYTES % (MANUAL) 2 %; MONOCYTES % (MANUAL) 2 %; NEUTROPHILS % (MANUAL) 96 %
[2022-10-26 06:51] LABS: ANISOCYTOSIS SLIGHT; MICROCYTOSIS MODERATE
[2022-10-26 08:04] VITALS: BP 129/67
[2022-10-26] MEDS: DULoxetine 30 MG (CYMBALTA) CAP PO SCH ×2 (08:38→20:13)
[2022-10-26] MEDS: MILK OF MAGNESIA 400 MG/5 ML 30 ML UDC PO PRN (08:38)
[2022-10-26] MEDS: polyethylene glycoL POWDER 17 GM (MIRALAX) PACK PO PRN (08:38)
[2022-10-26] MEDS: PANTOPRAZOLE 40 MG (PROTONIX) TAB PO SCH (08:38)
[2022-10-26] MEDS: DOCUSATE SODIUM 100 MG (COLACE) CAP PO SCH ×2 (08:38→20:13)
[2022-10-26] MEDS: APIXABAN 2.5 MG (ELIQUIS) TABLET PO SCH ×2 (08:38→20:14)
[2022-10-26] MEDS: SENNOSIDES 8.6 MG (SENOKOT) TAB PO SCH ×2 (08:39→20:14)
[2022-10-26] MEDS: TAMSULOSIN 0.4 MG (FLOMAX) CAP PO SCH (08:39)
[2022-10-26] MEDS: FUROSEMIDE 40 MG (LASIX) TAB PO SCH (08:39)
[2022-10-26] MEDS: LACTOBACILLUS ACIDOPHILUS (PROBIOTIC) CAPSULE PO SCH (08:39)
[2022-10-26] MEDS: BENZONATATE 100 MG (TESSALON) CAPSULE PO SCH ×3 (08:39→20:13)
[2022-10-26] MEDS: risperiDONE 0.5 MG (RisperDAL) TABLET PO SCH ×2 (08:39→20:14)
[2022-10-26] MEDS: GABAPENTIN 100 MG (NEURONTIN) CAP PO SCH ×2 (08:39→13:08)
[2022-10-26] MEDS: MICONAZOLE 2% POWDER (DESENEX AF) 90 GM TOP SCH ×2 (08:40→20:14)
[2022-10-26] MEDS: RT--FLUTICASONE/SALMETEROL 232-14 (AIRDUO RespiCLICK) IH SCH ×2 (09:21→20:06)
--- NOTE | 2022-10-26 11:11 | Progress Note ---
Subjective Subjective/Events-last exam Sleeping deeply, oxygen displaced onto forehead. Able to arouse with some effort. Oxygen replaced in nose. Her only complaint is that she can't sleep. States her breathing feels a little better. Objective Exam Last Set of Vital Signs Vital Signs Date Time Temp Pulse Resp B/P (MAP) Pulse Ox O2 Delivery O2 Flow Rate FiO2 10/26/22 09:28 96 Nasal Cannula 5.00 10/26/22 08:04 36.8 75 18 129/67 (87) 10/21/22 16:00 40 Capillary Refill : Less Than 3 Seconds I&O Intake and Output 10/26/22 00:00 Intake Total 1770 ml Output Total 1055 ml Balance 715 ml Intake Oral 1770 ml Output Urine Total 1055 ml # Bowel Movements 2 General: Mild Distress Lungs: Other (rales, gugrgling, wheezing, decreased air movement) Heart: Regular Rate Neuro: Normal Speech, Other (oriented to self and location, lethargic) Psych/Mental Status: Mood NL Results/Procedures Lab Laboratory Tests 10/25/22 11:37: Glucometer 296H 10/25/22 15:49: Glucometer 279H 10/25/22 19:37: Glucometer 223H 10/26/22 05:48: White Blood Count 16.7H, Red Blood Count 4.06, Hemoglobin 9.3L, Hematocrit 31L, Mean Corpuscular Volume 75L, Mean Corpuscular Hemoglobin 23L, Mean Corpuscular Hemoglobin Concent 31L, Red Cell Distribution Width 22.5H, Platelet Count 302, Mean Platelet Volume 10.3, Immature Granulocyte % (Auto) 1, Neutrophils (%) (Auto) 89H, Lymphocytes (%) (Auto) 5L, Monocytes (%) (Auto) 4, Eosinophils (%) (Auto) 0, Basophils (%) (Auto) 0, Neutrophils # (Auto) 15.0H, Lymphocytes # (Auto) 0.8L, Monocytes # (Auto) 0.7, Eosinophils # (Auto) 0.0, Basophils # (Auto) 0.0, Immature Granulocyte # (Auto) 0.2H, Neutrophils % (Manual) 96, Lymphocytes % (Manual) 2, Monocytes % (Manual) 2, Hypochromasia MODERATE, Anisocytosis SLIGHT, Microcytosis MODERATE, Sodium Level 134L, Potassium Level 3.9, Chloride Level 94L, Carbon Dioxide Level 29, Anion Gap 11, Blood Urea Nitrogen 27H, Creatinine 0.83, Estimat Glomerular Filtration Rate 69, BUN/Cre atinine Ratio 33, Glucose Level 286H, Calcium Level 8.9 10/26/22 06:21: Glucometer 269H 10/26/22 10:46: Glucometer 250H Assessment/Plan Assessment/Plan (1) Respiratory failure Status: Acute Assessment & Plan: Secondary to COPD exacerbation, initially requiring bipap, now on high flow nasal cannula, but still at 7 lpm and with some increased work of breathing. On cefepime and solumedrol 40 mg q6 hours. 10/24- decrease solumedrol to q12 hours, remains on 7 lpm but with improved work of breathing. Continue cefepime. 10/25- incrementally improved, change to oral prednisone and continue to wean O2 as tolerated. Qualifiers: Qualified Codes: J96.21 - Acute and chronic respiratory failure with hypoxia; J96.22 - Acute and chronic respiratory failure with hypercapnia (2) COPD exacerbation Status: Acute (3) HTN (hypertension) Status: Chronic (4) Atrial fibrillation with rapid ventricular response Status: Acute Assessment & Plan: Initially requiring cardizem drip, is on apixaban for stroke prophylaxis, appreciate Cardiology recommendations (5) Peripheral vascular disease (6) Coronary artery disease Status: Chronic (7) CHF (congestive heart failure) Status: Acute Assessment & Plan: Cardiology consulted, appreciate recommendations. On furosemide. Qualifiers: Qualified Codes: I50.33 - Acute on chronic diastolic (congestive) heart failure (8) Pneumonia Status: Acute Assessment & Plan: CXR with diffuse findings of congestion, possible superimposed infection. Completed 5 days of cefepime. (9) Sepsis Status: Resolved Assessment & Plan: Febrile, tachycardic, tachypneic on admit. LA okay. Suspect secondary to pneumonia. Completed Cefepime. (10) DVT prophylaxis Status: Acute Assessment & Plan: On apixaban for a fib. SHARIF JOHNSON MD Oct 26, 2022 11:11
--- NOTE | 2022-10-26 11:18 | Progress Note - Cardiology ---
Cardiology SOAP Progress Note Subjective: Somnolent, difficult to waken, does not report any symptoms Objective: I&O/Vital Signs 10/25/22 10/26/22 10/26/22 10/26/22 23:36 03:18 08:04 09:21 Temp 36.5 36.8 Pulse 97 75 Resp 18 18 B/P (MAP) 121/74 (90) 129/67 (87) Pulse Ox 92 99 98 99 O2 Delivery Nasal Cannula High Flow N/C Nasal Cannula High Flow N/C O2 Flow Rate 7.00 7.00 7.00 7.00 10/26/22 09:28 Pulse Ox 96 O2 Delivery Nasal Cannula O2 Flow Rate 5.00 10/26/22 00:00 Intake Total 1670 ml Output Total 405 ml Balance 1265 ml Weight (Pounds): 165 Weight (Ounces): 7.0 Weight (Calculated Kilograms): 74.400597 Constitutional: well-developed, well-nourished, other (somnolent) Respiratory: No accessory muscle use; chest expansion is symmetric, chest is bilaterally symmetric, other (Fair to good, bilateral air entry that is diminished at the bases; basal coarse crackle; insp rhonci over large airway; exp wheezes) Cardiovascular: irregularly irregular, S1 and S2, systolic murmur (Soft CELESTINO at card base) Gastrointestional: No tender; soft; No guarding, No rebound; audible bowel sounds Extremities: No clubbing, No cyanosis, No significant edema Neurologic/Psychiatric: other (moves all limbs equally) Skin: normal color, warm/dry; No cyanosis, No rash, No ulcerations Results/Procedures: Labs Laboratory Tests 10/25/22 11:37: Glucometer 296H 10/25/22 15:49: Glucometer 279H 10/25/22 19:37: Glucometer 223H 10/26/22 05:48: White Blood Count 16.7H, Red Blood Count 4.06, Hemoglobin 9.3L, Hematocrit 31L, Mean Corpuscular Volume 75L, Mean Corpuscular Hemoglobin 23L, Mean Corpuscular Hemoglobin Concent 31L, Red Cell Distribution Width 22.5H, Platelet Count 302, Mean Platelet Volume 10.3, Immature Granulocyte % (Auto) 1, Neutrophils (%) (Auto) 89H, Lymphocytes (%) (Auto) 5L, Monocytes (%) (Auto) 4, Eosinophils (%) (Auto) 0, Basophils (%) (Auto) 0, Neutrophils # (Auto) 15.0H, Lymphocytes # (Auto) 0.8L, Monocytes # (Auto) 0.7, Eosinophils # (Auto) 0.0, Basophils # (Auto) 0.0, Immature Granulocyte # (Auto) 0.2H, Neutrophils % (Manual) 96, Lymphocytes % (Manual) 2, Monocytes % (Manual) 2, Hypochromasia MODERATE, Anisocytosis SLIGHT, Microcytosis MODERATE, Sodium Level 134L, Potassium Level 3.9, Chloride Level 94L, Carbon Dioxide Level 29, Anion Gap 11, Blood Urea Nitrogen 27H, Creatinine 0.83, Estimat Glomerular Filtration Rate 69, BUN/Creatinine Ratio 33, Glucose Level 286H, Calcium Level 8.9 10/26/22 06:21: Glucometer 269H 10/26/22 10:46: Glucometer 250H Laboratory Tests 10/25/22 05:26 10/26/22 05:48 A/P: Assessment: Ac exac of COPD due to lower resp tract infection - Dr Marcelo managing Chronic A Fib, first document in 2017 at [facility] - chronically on apixaban for stroke prophylaxis - RVR during this hospitalization - rate currently controlled on home dose of Cardizem Ac on ch diastolic CHF - clinically improved Anemia of undetermined etiology - managed by medical services CAD - s/p [address] Maza at [facility] in : GREY to LAD, SVG to OM1 and SVG to PDA. Cardiac cath of Oct 15, 2017 (done following an MPI that showed apical ischemia) showed widely patent aortocoronary graft to the distal RCA, widely patent aortocoronary graft to OM system, widely patent left internal mammary artery graft to the distal LAD, normal to hyperdynamic LV systolic function with an ejection fraction of approx 70%, normal LVEDP, no evidence of thoracic aortic aneurysm or dissection, mod-sized infrarenal abdominal aortic aneurysm, mild prox stenosis of the left renal artery - MPI on 06/21/20: mild ant-lat ischemia (technically difficult study due to significant patient motion) normal LVEF - Echo on 06/20/20: LVEF 50-55%, biatrial enlargement, mild to mod TR, pulm htn ( PASP approx 60-65 mmHg) H/O GI bleed - with hypovolemic shock during hospitalization of April 16, 2019. GI bleed due to a bleeding prepyloric ulcer (managed by Dr. Lemus) - no recurrence Carotid arterial disease - s/p R CEA with Dr Valenzuela at [facility] in Dec 2017 - s/p L carotid PCI at [facility] in January 2018 (Dr Valenzuela). - Mild carotid arterial disease on carotid u/s of Nov 2019 H/o old lacunar infarction - including R internal capsule (based on w/u of Dec 2017 at [facility]) S/P right hip replacement PAD: - Peripheral angiogram with runoffs of March 2018: Moderate-sized, infrarenal, saccular abdominal aortic aneurysm. A 70% ostial and proximal stenoses of the renal arteries on both sides. 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 Proximal occlusion of the right superficial femoral artery which reconstitutes via collaterals in its distal portion. There is a 2-vessel runoff in the leg. Multiple up to 75% stenoses in the mid and distal portions of the left superficial femoral artery. For these findings she was referred to [facility]. - Arterial Doppler of both legs on 06/22/20: Bilateral lower extremity peripheral vascular disease. There are monophasic waveforms throughout the right lower extreme arterial system which can be seen with more proximal disease. There is a probable stenosis in the mid left SFA where there is some velocity elevation COPD - managed by PCP H/O Tobaccoism - quit 2009 HTN - controlled H/o hypothyroidism - that is followed by her fam [facility] - S/P suprapubic catheter placement per Dr. James on 11-26-2017 GI - S/P umbilical hernia repair on 06-23-[address] Kallie Cintron in Nov 2021 Plan: * HR currently controlled on long-acting Diltiazem * Continue Apixaban for stroke prophylaxis * Acute on chronic exacerbation of COPD with prob pneumonia - management per medical services * Monitor labs and correct abnormalities * Ok to d/c from cardiac standpoint CHELLE GOETZ MD FACP FAC CCDS Oct 26, 2022 11:18
[2022-10-26 15:39] VITALS: BP 127/63
[2022-10-26] MEDS: ROSUVASTATIN 10 MG (CRESTOR) TABLET PO SCH (20:13)
[2022-10-26] MEDS: GABAPENTIN 600 MG (NEURONTIN) TAB PO SCH (20:14)
[2022-10-27] VITALS (9 sets, daily range): BP systolic 111–168; BP diastolic 60–84
[2022-10-27] MEDS: RT-ALBUTEROL/IPRATROPIUM 3 ML (DUONEB) VIAL INH SCH ×4 (02:47→23:24)
[2022-10-27] MEDS: ALPRAZolam 0.5 MG (XANAX) TAB PO PRN ×3 (04:15→15:48)
[2022-10-27] MEDS: RT-ALBUTEROL/IPRATROPIUM 3 ML (DUONEB) VIAL INH PRN ×2 (04:31→11:52)
[2022-10-27 05:50] LABS: BASOPHILS % (AUTO) 0 % (0-10); EOSINOPHILS % (AUTO) 0 % (0-10); HEMATOCRIT 31 % (35-52); HEMOGLOBIN 9.2 g/dL (11.5-16.0); LYMPHOCYTES # (AUTO) 1.2 10^3/uL (1.0-4.0); LYMPHOCYTES % (AUTO) 9 % (12-44); MEAN CORPUSCULAR HEMOGLOBIN 23 pg (25-34); MEAN CORPUSCULAR HGB CONC 30 g/dL (32-36); MEAN CORPUSCULAR VOLUME 75 fL (80-99); MEAN PLATELET VOLUME 9.8 fL (9.0-12.2); MONOCYTES # (AUTO) 1.1 10^3/uL (0.0-1.0); MONOCYTES % (AUTO) 8 % (0-12); NEUTROPHILS # (AUTO) 10.8 10^3/uL (1.8-7.8); NEUTROPHILS % (AUTO) 81 % (42-75); PLATELET COUNT 300 10^3/uL (130-400); WHITE BLOOD COUNT 13.4 10^3/uL (4.3-11.0)
[2022-10-27] MEDS: inSUlin ASPART (NovoLOG) 1 UNIT/0.01 ML (CHARGE PER UNIT) SC SCH ×4 (06:17→20:58)
[2022-10-27] MEDS: predniSONE 10 MG TAB PO SCH (06:17)
[2022-10-27] MEDS: KCL 10 MEQ TAB (MICRO K) PO SCH (06:17)
--- NOTE | 2022-10-27 06:34 | Progress Note - Hospitalist ---
Subjective HPI/CC On Admission Date Seen by Provider: Oct 27, 2022 Time Seen by Provider: 11:30 CC: Respiratory failure requiring biPAP with AF RVR HPI: This is an 86yoWF clinic patient of [facility] who presents to the ER with dyspnea requiring biPAP and ICU admit along with Cardizem drip for AF RVR. Dr Torrez was consulted. No pain is reported. Checked meds and labs. Patient still requiring O2 and BiPAP at times. Patient is DNR. Subjective/Events-last exam Patient wheezing quite a bit Appears to be very end stage Patient appears to be a hospice candidate Supportive care will continue Review of Systems General: Fatigue Pulmonary: Dyspnea Objective Exam Vital Signs Vital Signs Date Time Temp Pulse Resp B/P (MAP) Pulse Ox O2 Delivery O2 Flow Rate FiO2 10/27/22 11:51 91 High Flow N/C 5.00 10/27/22 11:41 36.8 99 20 111/66 (81) 10/21/22 16:00 40 Capillary Refill : Less Than 3 Seconds General Appearance: Anxious, Chronically ill, Mild Distress Respiratory: Accessory Muscle Use, Decreased Breath Sounds, Wheezing Cardiovascular: Regular Rate, Rhythm Neurologic/Psychiatric: Alert, Disoriented Results/Procedures Lab Laboratory Tests 10/27/22 05:28 Patient resulted labs reviewed. Assessment/Plan Assessment and Plan Assess & Plan/Chief Complaint Assessment: Acute respiratory failure PNA AF RVR BiPAP required while in ICU CAD Dementia DNR Plan: Oxygen Patient very end-stage Diagnosis/Problems Diagnosis/Problems (1) Acute and chronic respiratory failure with hypoxia Status: Acute (2) Atrial fibrillation Status: Chronic (3) Coronary artery disease Status: Chronic BARBER CRONIN DO Oct 27, 2022 06:34
[2022-10-27] MEDS: RT--FLUTICASONE/SALMETEROL 232-14 (AIRDUO RespiCLICK) IH SCH ×2 (09:12→23:24)
[2022-10-27] MEDS: GABAPENTIN 100 MG (NEURONTIN) CAP PO SCH ×2 (09:31→12:26)
[2022-10-27] MEDS: TAMSULOSIN 0.4 MG (FLOMAX) CAP PO SCH (09:31)
[2022-10-27] MEDS: DOCUSATE SODIUM 100 MG (COLACE) CAP PO SCH ×2 (09:31→20:58)
[2022-10-27] MEDS: LACTOBACILLUS ACIDOPHILUS (PROBIOTIC) CAPSULE PO SCH (09:31)
[2022-10-27] MEDS: PANTOPRAZOLE 40 MG (PROTONIX) TAB PO SCH (09:31)
[2022-10-27] MEDS: BENZONATATE 100 MG (TESSALON) CAPSULE PO SCH ×3 (09:31→20:57)
[2022-10-27] MEDS: DULoxetine 30 MG (CYMBALTA) CAP PO SCH ×2 (09:31→20:57)
[2022-10-27] MEDS: SENNOSIDES 8.6 MG (SENOKOT) TAB PO SCH ×2 (09:31→20:58)
[2022-10-27] MEDS: APIXABAN 2.5 MG (ELIQUIS) TABLET PO SCH ×2 (09:31→20:58)
[2022-10-27] MEDS: FUROSEMIDE 40 MG (LASIX) TAB PO SCH (09:31)
[2022-10-27] MEDS: MICONAZOLE 2% POWDER (DESENEX AF) 90 GM TOP SCH ×2 (09:32→20:58)
[2022-10-27] MEDS: risperiDONE 0.5 MG (RisperDAL) TABLET PO SCH ×2 (09:36→20:57)
[2022-10-27 12:09] LABS: ALBUMIN 3.1 GM/DL (3.2-4.5); BILIRUBIN,TOTAL 0.4 MG/DL (0.1-1.0); CALCIUM 8.8 MG/DL (8.5-10.1); CREATININE SERUM 0.74 MG/DL (0.60-1.30); POTASSIUM 3.8 MMOL/L (3.6-5.0); TOTAL PROTEIN 5.7 GM/DL (6.4-8.2)
[2022-10-27] MEDS: ROSUVASTATIN 10 MG (CRESTOR) TABLET PO SCH (20:57)
[2022-10-27] MEDS: GABAPENTIN 600 MG (NEURONTIN) TAB PO SCH (20:57)
[2022-10-28] VITALS (7 sets, daily range): BP systolic 94–140; BP diastolic 51–68
[2022-10-28] MEDS: RT-ALBUTEROL/IPRATROPIUM 3 ML (DUONEB) VIAL INH SCH ×4 (03:05→21:21)
[2022-10-28] MEDS: KCL 10 MEQ TAB (MICRO K) PO SCH (05:38)
[2022-10-28] MEDS: predniSONE 10 MG TAB PO SCH (05:38)
[2022-10-28] MEDS: inSUlin ASPART (NovoLOG) 1 UNIT/0.01 ML (CHARGE PER UNIT) SC SCH ×4 (05:38→21:35)
--- NOTE | 2022-10-28 06:19 | Progress Note - Hospitalist ---
Subjective HPI/CC On Admission Date Seen by Provider: Oct 28, 2022 Time Seen by Provider: 11:00 CC: Respiratory failure requiring biPAP with AF RVR HPI: This is an 86yoWF clinic patient of [facility] who presents to the ER with dyspnea requiring biPAP and ICU admit along with Cardizem drip for AF RVR. Dr Torrez was consulted. No pain is reported. Checked meds and labs. Patient still requiring O2 and BiPAP at times. Patient is DNR. Subjective/Events-last exam Asleep Very poor prognosis DC to NH will be tomorrow Objective Exam Vital Signs Vital Signs Date Time Temp Pulse Resp B/P (MAP) Pulse Ox O2 Delivery O2 Flow Rate FiO2 10/28/22 15:45 96 High Flow N/C 5.00 10/28/22 12:23 119/66 (83) 10/28/22 11:38 36.1 90 20 Capillary Refill : Less Than 3 Seconds General Appearance: No Apparent Distress, WD/WN, Chronically ill Respiratory: Normal Breath Sounds, Decreased Breath Sounds, Wheezing Cardiovascular: Regular Rate, Rhythm Results/Procedures Lab Laboratory Tests 10/28/22 05:23 Patient resulted labs reviewed. Assessment/Plan Assessment and Plan Assess & Plan/Chief Complaint Assessment: Acute respiratory failure PNA AF RVR BiPAP required while in ICU CAD Dementia DNR Plan: Oxygen Patient very end-stage Diagnosis/Problems Diagnosis/Problems (1) Acute and chronic respiratory failure with hypoxia Status: Acute (2) Atrial fibrillation Status: Chronic (3) Coronary artery disease Status: Chronic BARBER CRONIN DO Oct 28, 2022 06:19
[2022-10-28 07:04] LABS: ALBUMIN 3.2 GM/DL (3.2-4.5); BILIRUBIN,TOTAL 0.4 MG/DL (0.1-1.0); CREATININE SERUM 0.76 MG/DL (0.60-1.30); POTASSIUM 3.6 MMOL/L (3.6-5.0); TOTAL PROTEIN 5.9 GM/DL (6.4-8.2)
[2022-10-28 07:17] LABS: BASOPHILS % (AUTO) 0 % (0-10); EOSINOPHILS % (AUTO) 0 % (0-10); HEMATOCRIT 33 % (35-52); HEMOGLOBIN 9.8 g/dL (11.5-16.0); LYMPHOCYTES # (AUTO) 1.6 10^3/uL (1.0-4.0); LYMPHOCYTES % (AUTO) 11 % (12-44); MEAN CORPUSCULAR HEMOGLOBIN 22 pg (25-34); MEAN CORPUSCULAR HGB CONC 30 g/dL (32-36); MEAN CORPUSCULAR VOLUME 75 fL (80-99); MEAN PLATELET VOLUME 10.5 fL (9.0-12.2); MONOCYTES % (AUTO) 7 % (0-12); NEUTROPHILS # (AUTO) 11.8 10^3/uL (1.8-7.8); NEUTROPHILS % (AUTO) 79 % (42-75); PLATELET COUNT 368 10^3/uL (130-400); WHITE BLOOD COUNT 15.1 10^3/uL (4.3-11.0)
[2022-10-28] MEDS: RT--FLUTICASONE/SALMETEROL 232-14 (AIRDUO RespiCLICK) IH SCH ×2 (08:30→21:21)
[2022-10-28] MEDS: APIXABAN 2.5 MG (ELIQUIS) TABLET PO SCH ×2 (09:13→20:32)
[2022-10-28] MEDS: risperiDONE 0.5 MG (RisperDAL) TABLET PO SCH ×2 (09:13→20:32)
[2022-10-28] MEDS: PANTOPRAZOLE 40 MG (PROTONIX) TAB PO SCH (09:13)
[2022-10-28] MEDS: DOCUSATE SODIUM 100 MG (COLACE) CAP PO SCH ×2 (09:13→20:32)
[2022-10-28] MEDS: DULoxetine 30 MG (CYMBALTA) CAP PO SCH ×2 (09:13→20:32)
[2022-10-28] MEDS: BENZONATATE 100 MG (TESSALON) CAPSULE PO SCH ×3 (09:13→20:32)
[2022-10-28] MEDS: FUROSEMIDE 40 MG (LASIX) TAB PO SCH (09:14)
[2022-10-28] MEDS: SENNOSIDES 8.6 MG (SENOKOT) TAB PO SCH ×2 (09:14→20:32)
[2022-10-28] MEDS: MICONAZOLE 2% POWDER (DESENEX AF) 90 GM TOP SCH ×2 (09:14→20:32)
[2022-10-28] MEDS: LACTOBACILLUS ACIDOPHILUS (PROBIOTIC) CAPSULE PO SCH (09:14)
[2022-10-28] MEDS: TAMSULOSIN 0.4 MG (FLOMAX) CAP PO SCH (09:14)
[2022-10-28] MEDS: GABAPENTIN 100 MG (NEURONTIN) CAP PO SCH ×2 (09:14→13:22)
[2022-10-28] MEDS ORDERED: guaiFENesin/CODEINE (ROBITUSSIN AC) 10ML UDC PO PRN (18:00)
[2022-10-28] MEDS: ALPRAZolam 0.5 MG (XANAX) TAB PO PRN (20:32)
[2022-10-28] MEDS: ROSUVASTATIN 10 MG (CRESTOR) TABLET PO SCH (20:32)
[2022-10-28] MEDS: GABAPENTIN 600 MG (NEURONTIN) TAB PO SCH (20:32)
[2022-10-29] MEDS: RT-ALBUTEROL/IPRATROPIUM 3 ML (DUONEB) VIAL INH SCH ×4 (02:54→21:57)
[2022-10-29 03:04] VITALS: BP 108/57
[2022-10-29 05:47] LABS: BASOPHILS % (AUTO) 0 % (0-10); EOSINOPHILS % (AUTO) 0 % (0-10); HEMATOCRIT 30 % (35-52); LYMPHOCYTES # (AUTO) 1.6 10^3/uL (1.0-4.0); LYMPHOCYTES % (AUTO) 11 % (12-44); MEAN CORPUSCULAR HEMOGLOBIN 22 pg (25-34); MEAN CORPUSCULAR HGB CONC 30 g/dL (32-36); MEAN CORPUSCULAR VOLUME 75 fL (80-99); MEAN PLATELET VOLUME 10.3 fL (9.0-12.2); MONOCYTES # (AUTO) 1.3 10^3/uL (0.0-1.0); MONOCYTES % (AUTO) 9 % (0-12); NEUTROPHILS # (AUTO) 11.1 10^3/uL (1.8-7.8); NEUTROPHILS % (AUTO) 76 % (42-75); PLATELET COUNT 317 10^3/uL (130-400); WHITE BLOOD COUNT 14.5 10^3/uL (4.3-11.0)
[2022-10-29] MEDS: predniSONE 10 MG TAB PO SCH (05:59)
[2022-10-29] MEDS: KCL 10 MEQ TAB (MICRO K) PO SCH (05:59)
[2022-10-29] MEDS: inSUlin ASPART (NovoLOG) 1 UNIT/0.01 ML (CHARGE PER UNIT) SC SCH ×4 (06:04→21:28)
[2022-10-29 06:10] LABS: ALBUMIN 2.8 GM/DL (3.2-4.5); BILIRUBIN,TOTAL 0.4 MG/DL (0.1-1.0); CALCIUM 8.8 MG/DL (8.5-10.1); CREATININE SERUM 0.74 MG/DL (0.60-1.30); POTASSIUM 3.6 MMOL/L (3.6-5.0); TOTAL PROTEIN 5.2 GM/DL (6.4-8.2)
[2022-10-29] MEDS: RT--FLUTICASONE/SALMETEROL 232-14 (AIRDUO RespiCLICK) IH SCH ×2 (07:50→21:57)
[2022-10-29 07:55] VITALS: BP 116/52
[2022-10-29] MEDS: DULoxetine 30 MG (CYMBALTA) CAP PO SCH ×2 (09:48→19:23)
[2022-10-29] MEDS: risperiDONE 0.5 MG (RisperDAL) TABLET PO SCH ×2 (09:48→19:23)
[2022-10-29] MEDS: TAMSULOSIN 0.4 MG (FLOMAX) CAP PO SCH (09:48)
[2022-10-29] MEDS: DOCUSATE SODIUM 100 MG (COLACE) CAP PO SCH ×2 (09:48→19:23)
[2022-10-29] MEDS: LACTOBACILLUS ACIDOPHILUS (PROBIOTIC) CAPSULE PO SCH (09:48)
[2022-10-29] MEDS: SENNOSIDES 8.6 MG (SENOKOT) TAB PO SCH ×2 (09:49→19:23)
[2022-10-29] MEDS: FUROSEMIDE 40 MG (LASIX) TAB PO SCH (09:49)
[2022-10-29] MEDS: MICONAZOLE 2% POWDER (DESENEX AF) 90 GM TOP SCH ×2 (09:49→19:24)
[2022-10-29] MEDS: PANTOPRAZOLE 40 MG (PROTONIX) TAB PO SCH (09:49)
[2022-10-29] MEDS: BENZONATATE 100 MG (TESSALON) CAPSULE PO SCH ×3 (09:49→19:23)
[2022-10-29] MEDS: GABAPENTIN 100 MG (NEURONTIN) CAP PO SCH ×2 (09:49→11:35)
[2022-10-29] MEDS: APIXABAN 2.5 MG (ELIQUIS) TABLET PO SCH ×2 (09:49→19:23)
[2022-10-29] MEDS ORDERED: IPRA3AMP31 INH (11:17)
[2022-10-29] MEDS ORDERED: ALPR0.5T7 PO (11:17)
[2022-10-29] MEDS ORDERED: DILT180C85 PO (11:17)
[2022-10-29] MEDS ORDERED: BENZ100C18 PO (11:17)
[2022-10-29] MEDS ORDERED: PRED10TA22 PO (11:17)
--- NOTE | 2022-10-29 11:18 | Discharge Inst-Skilled Nursing ---
Discharge Inst-Skilled NF Reconcile Patient Problems Problems Reviewed?: Yes Chief Complaint CC: Respiratory failure requiring biPAP with AF RVR HPI: This is an 86yoWF clinic patient of [facility] who presents to the ER with dyspnea requiring biPAP and ICU admit along with Cardipriscillam drip for AF RVR. Dr Torrez was consulted. No pain is reported. Checked meds and labs. Patient still requiring O2 and BiPAP at times. Patient is DNR. Patient Instructions Patient Problems: Debility AF Resp failure Consult/Follow Up/Orders Follow Up Appt.: PCP [place] rounds Skilled NF Admit to: [facility] () I certify that services are required to be given on an inpatient basis because of the above named patient's need for custodial care on a continuing basis for the conditions(s) for which he/she was receiving inpatient hospital services prior to his/her transfer to the . [facility] Facility Order: Nursing Services, [facility]-Evaluate & Treat, Physical Therapy-Evaluate & Treat, Wound Care-Eval/Treat Oxygen Delivery Method: Nasal Cannula Resuscitation Status: Do Not Resuscitate New & Resume Previous Orders New Medications: Prednisone (Prednisone) 10 Mg Tab.ds.pk 10 MG PO DAILY, #21 EACH Take 6 tabs(60mg)daily,decrease by 1 tab(10MG)daily. Alprazolam (Alprazolam) 0.5 Mg Tablet 0.5 MG PO Q4H PRN for ANXIETY, #20 TAB Benzonatate (Tessalon Perles) 100 Mg Capsule 100 MG PO TID, #30 CAP Diltiazem HCl (Diltiazem 24Hr ER) 180 Mg Cap.er.24h 180 MG PO BID, #60 CAP Ipratropium/Albuterol Sulfate (Iprat-Albut 0.5-3(2.5) mg/3 ml) 0.5 Mg-3 Mg (2.5 Mg Base)/3 Ml Ampul.neb 3 ML INH RTQ2H PRN for dyspnea, wheezing, #30 INHALER Continued Medications: Acetaminophen (Acetaminophen) 325 Mg Tablet 650 MG PO Q4H PRN for PAIN-MILD (1-4), TAB TAKES 2 (325MG) TABLETS Acetaminophen (Tylenol Extra Strength) 500 Mg Tablet 500 MG PO TID, TAB Apixaban (Eliquis) 2.5 Mg Tablet 2.5 MG PO BID, TAB Budesonide/Formoterol Fumarate (Symbicort 160-4.5 Mcg Inhaler) 160 Mcg-4.5 Mcg/Actuation Hfa.aer.ad 2 PUFF IH BID, EA Duloxetine HCl (Duloxetine HCl) 30 Mg Capsule.dr 30 MG PO BID, CAP [Flavoxate] () 100MG TAB 200 MG PO TID, TAB TAKES 2 100MG TABLETS Furosemide (Furosemide) 40 Mg Tablet 40 MG PO DAILY, TAB Gabapentin (Gabapentin) 100 Mg Capsule 100 MG PO DAILY, CAP Gabapentin (Gabapentin) 100 Mg Capsule 200 MG PO 1200, CAP TAKES 2 100MG CAPSULES Gabapentin (Gabapentin) 600 Mg Tablet 600 MG PO HS, TAB Guaifenesin/Dextromethorphan (Robitussin Cough-Chest Dm Liq) 100 Mg-5 Mg/5 Ml Liquid 10 ML PO Q4H PRN for COUGH, ML Lactobacillus Rhamnosus GG (Culturelle) 10 Billion Cell Capsule 1 EACH PO DAILY, CAP Lactulose (Lactulose) 10 Gram/15 Ml Solution 15 ML PO BID PRN for CONSTIPATION-3RD LINE, EA Lidocaine (Lidocaine 5% Patch) 5 % Adh..patch 1 EACH TP DAILY PRN for NERVE PAIN, PATCH Loperamide HCl (Imodium A-D) 2 Mg Capsule 2 MG PO QID PRN for LOOSE STOOLS, CAP Mag Hydrox/Al Hydrox/Simeth (Antacid Anti-Gas Liquid) 355 Ml Oral.susp 30 ML PO Q4H PRN for INDIGESTION, ML Magnesium Hydroxide (Milk of Magnesia) 2,400 Mg/10 Ml Oral.susp 30 ML PO DAILY PRN for CONSTIPATION-7TH LINE, ML Metoprolol Succinate (Metoprolol Succinate) 25 Mg Tab.er.24h 25 MG PO HS, TAB Nystatin (Nystatin) 10 Billion Unit Powder.ea. 1 APPLIC TP BID, UNIT Pantoprazole Sodium (Pantoprazole Sodium) 40 Mg Tablet.dr 40 MG PO DAILY, TAB Potassium Chloride (Potassium Chloride) 10 Meq Tab.er.prt 10 MEQ PO DAILY Propylene Glycol (Systane Complete) 0.6 % Drops 1 DROP OU TID, DROPS Risperidone (Risperidone) 0.5 Mg Tablet 0.5 MG PO Q12H, TAB Simvastatin (Simvastatin) 40 Mg Tablet 40 MG PO HS, TAB Tamsulosin HCl (Flomax) 0.4 Mg Cap 0.4 MG PO DAILY, CAP Discontinued Medications: Albuterol Sulfate (Albuterol Sulfate) 1.25 Mg/3 Ml Vial.neb 1.25 MG INH TID, EACH Aspirin (Aspirin) 81 Mg Tab.chew 81 MG PO BID, TAB Diltiazem HCl (Diltiazem 24Hr ER) 360 Mg Cap.er.24h 360 MG PO DAILY, CAP Doxycycline Hyclate (Doxycycline Hyclate) 100 Mg Tablet 100 MG PO BID, TAB Susy Maguire Oct 29, 2022 11:18 SUSY MAGUIRE DO Oct 29, 2022 11:18
--- NOTE | 2022-10-29 11:18 | Discharge Summary ---
Discharge Summary Hospital Course Problems/Dx: (1) Acute and chronic respiratory failure with hypoxia Status: Acute (2) Atrial fibrillation Status: Chronic (3) Coronary artery disease Status: Chronic Hospital Course Date of Admission: Oct 20, 2022 at 19:34 Admission Diagnosis : Family Physician/Provider: Itz Chacon MD Date of Discharge: 10/29/22 Discharge Diagnosis: [ ] Hospital Course: [ ] Labs and Pending Lab Test: Laboratory Tests 10/28/22 16:10: Glucometer 392H 10/28/22 20:46: Glucometer 282H 10/29/22 05:25: White Blood Count 14.5H, Red Blood Count 4.03, Hemoglobin 9.0L, Hematocrit 30L, Mean Corpuscular Volume 75L, Mean Corpuscular Hemoglobin 22L, Mean Corpuscular Hemoglobin Concent 30L, Red Cell Distribution Width 23.0H, Platelet Count 317, Mean Platelet Volume 10.3, Immature Granulocyte % (Auto) 3, Neutrophils (%) (Auto) 76H, Lymphocytes (%) (Auto) 11L, Monocytes (%) (Auto) 9, Eosinophils (%) (Auto) 0, Basophils (%) (Auto) 0, Neutrophils # (Auto) 11.1H, Lymphocytes # (Auto) 1.6, Monocytes # (Auto) 1.3H, Eosinophils # (Auto) 0.0, Basophils # (Auto) 0.0, Immature Granulocyte # (Auto) 0.4H, Sodium Level 137, Potassium Level 3.6, Chloride Level 93L, Carbon Dioxide Level 34H, Anion Gap 10, Blood Urea Nitrogen 18, Creatinine 0.74, Estimat Glomerular Filtration Rate 80, BUN/Creatinine Ratio 24, Glucose Level 176H, Calcium Level 8.8, Corrected Calcium 9.8, Total Bilirubin 0.4, Aspartate Amino Transf (AST/SGOT) 14, Alanine Aminotransferase (ALT/SGPT) 27, Alkaline Phosphatase 42, Total Protein 5.2L, Albumin 2.8L 10/29/22 05:39: Glucometer 181H 10/29/22 11:03: Glucometer 395H Home Meds Active Prednisone 10 Mg Tab.ds.pk 10 Mg PO DAILY Take 6 tabs(60mg)daily,decrease by 1 tab(10MG)daily. Tessalon Perles (Benzonatate) 100 Mg Capsule 100 Mg PO TID Alprazolam 0.5 Mg Tablet 0.5 Mg PO Q4H PRN Diltiazem 24Hr ER (Diltiazem HCl) 180 Mg Cap.er.24h 180 Mg PO BID Iprat-Albut 0.5-3(2.5) mg/3 ml (Ipratropium/Albuterol Sulfate) 0.5 Mg-3 Mg (2.5 Mg Base)/3 Ml Ampul.neb 3 Ml INH RTQ2H PRN Reported [Flavoxate] 100MG Tab 200 Mg PO TID TAKES 2 100MG TABLETS Lidocaine 5% Patch (Lidocaine) 5 % Adh..patch 1 Each TP DAILY PRN Imodium A-D (Loperamide HCl) 2 Mg Capsule 2 Mg PO QID PRN Lactulose 10 Gram/15 Ml Solution 15 Ml PO BID PRN Milk of Magnesia (Magnesium Hydroxide) 2,400 Mg/10 Ml Oral.susp 30 Ml PO DAILY PRN Gabapentin 600 Mg Tablet 600 Mg PO HS Metoprolol Succinate 25 Mg Tab.er.24h 25 Mg PO HS Simvastatin 40 Mg Tablet 40 Mg PO HS Albuterol Sulfate 1.25 Mg/3 Ml Vial.neb 1.25 Mg INH TID Gabapentin 100 Mg Capsule 200 Mg PO 1200 TAKES 2 100MG CAPSULES Doxycycline Hyclate 100 Mg Tablet 100 Mg PO BID Nystatin 10 Billion Unit Powder.ea. 1 Applic TP BID Gabapentin 100 Mg Capsule 100 Mg PO DAILY Systane Complete (Propylene Glycol) 0.6 % Drops 1 Drop OU TID Symbicort 160-4.5 Mcg Inhaler (Budesonide/Formoterol Fumarate) 160 Mcg-4.5 Mcg/Actuation Hfa.aer.ad 2 Puff IH BID Risperidone 0.5 Mg Tablet 0.5 Mg PO Q12H Potassium Chloride 10 Meq Tab.er.prt 10 Meq PO DAILY Furosemide 40 Mg Tablet 40 Mg PO DAILY Diltiazem 24Hr ER (Diltiazem HCl) 360 Mg Cap.er.24h 360 Mg PO DAILY Duloxetine HCl 30 Mg Capsule.dr 30 Mg PO BID Culturelle (Lactobacillus Rhamnosus GG) 10 Billion Cell Capsule 1 Each PO DAILY Aspirin 81 Mg Tab.chew 81 Mg PO BID Tylenol Extra Strength (Acetaminophen) 500 Mg Tablet 500 Mg PO TID Antacid Anti-Gas Liquid (Mag Hydrox/Al Hydrox/Simeth) 355 Ml Oral.susp 30 Ml PO Q4H PRN Eliquis (Apixaban) 2.5 Mg Tablet 2.5 Mg PO BID Robitussin Cough-Chest Dm Liq (Guaifenesin/Dextromethorphan) 100 Mg-5 Mg/5 Ml Liquid 10 Ml PO Q4H PRN Pantoprazole Sodium 40 Mg Tablet.dr 40 Mg PO DAILY Acetaminophen 325 Mg Tablet 650 Mg PO Q4H PRN TAKES 2 (325MG) TABLETS Flomax (Tamsulosin HCl) 0.4 Mg Cap 0.4 Mg PO DAILY Discharge Physical Examination Vital Signs Vital Signs Date Time Temp Pulse Resp B/P (MAP) Pulse Ox O2 Delivery O2 Flow Rate FiO2 10/29/22 07:55 36.9 71 18 116/52 (73) 94 Nasal Cannula 4.50 Allergies: Coded Allergies: Sulfa (Sulfonamide Antibiotics) (Verified Allergy, Unknown, 04/16/19) diphenhydramine HCl (Verified Allergy, Unknown, 04/16/19) hydrochlorothiazide (Unverified Allergy, Unknown, 04/16/19) varenicline tartrate (Verified Allergy, Unknown, 04/16/19) Discharge Summary Date of Admission Oct 20, 2022 at 19:34 Date of Discharge Discharge Date: Oct 29, 2022 Admission Diagnosis Assessment: Acute respiratory failure PNA AF RVR BiPAP required CAD Dementia DNR Plan: BiPAP Cardizem craig Torrez consulted Discharge Diagnosis Assessment: Acute respiratory failure PNA AF RVR BiPAP required while in ICU CAD Dementia DNR Plan: Oxygen Patient very end-stage (1) Acute and chronic respiratory failure with hypoxia Status: Acute (2) Atrial fibrillation Status: Chronic (3) Coronary artery disease Status: Chronic BARBER CRONIN DO Oct 29, 2022 11:18
[2022-10-29 11:29] VITALS: BP 131/82
[2022-10-29] MEDS: ALPRAZolam 0.5 MG (XANAX) TAB PO PRN ×2 (13:23→19:23)
--- NOTE | 2022-10-29 14:08 | Occupational Therapy Eval ---
OT Evaluation-General/PLF Medical Diagnosis Admission Date Oct 20, 2022 at 19:34 Medical Diagnosis: afib with RVR Onset Date: Oct 20, 2022 Therapy Diagnosis Therapy Diagnosis: decreased ADL status Height/Weight Height (Feet): 5 Height (Inches): 2.00 Weight (Pounds): 165 Weight (Ounces): 7.0 Precautions Precautions/Isolations: Standard Precautions Referral Physician: Ting Referral Reason: Evaluation/Treatment Medical History Pertinent Medical History: Atrial Fib, CABG, CAD, COPD, DM, GERD, Heart Failure, HTN, OA Additional Medical History asthma, COPD, afib, CAD with CABG x3, HTN, GERD, arthritis, DM, b/l rotator cuff repair, cervical fusion, low back sx, knee replacement, carpal tunnel release b/l Current History ED with dyspnea requiring biPAP and ICU stay, afib with RVR Social History Home: Shelter ADL-Prior Level of Function SCALE: Activities may be completed with or without assistive devices. 5-Hvxnxufula-nlozkte completes the activity by him/herself with no assistance from a helper. 5-Set-up or Clean-up Assistance-helper sets up or cleans up; patient completes activity. [place] assists only prior to or following the activity. 4-Supervision or Touching Assistance-helper provides verbal cues and/or touching/steadying and/or contact guard assistance as patient completes activity. Assistance may be provided throughout the activity or intermittently. 3-Partial/Moderate Assistance-helper does LESS THAN HALF the effort. [place] lifts, holds or supports trunk or limbs, but provides less than half the effort. 2-Substantial/Maximal Assistance-helper does MORE THAN HALF the effort. [place] lifts or holds trunk or limbs and provides more than half the effort. 6-Pzpbnwmob-juzmic does ALL the effort. Patient does none of the effort to complete the activity. Or, the assistance of 2 or more helpers is required for the patient to complete the activity. If activity was not attempted, code reason: 7-Patient Refused. 9-Not Applicable-not attempted and the patient did not perform the activity before the current illness, exacerbation or injury. 10-Not Attempted due to Environmental Limitations-(lack of equipment, weather restraints, etc.). 88-Not Attempted due to Medical Conditions or Safety Concerns. ADL PLOF Comments Pt reports being w/c bound at PLOF, hasn't walked in a while. She has assistance with sponge baths, dressing and toileting. Self Care: Needed Some Help Functional Cognition: Independent OT Current Status Subjective Pt up in recliner, agreeable to OT evaluation. Pt states someone came in to get her up and walk, but she hasn't walked in a long time. Pt [place]. Mental Status/Objective Patient Orientation: Person, Place, Situation Attachments: Oxygen Current Upper Extremity ROM Decreased, BUE shoulder flexion to approx 20 degrees. Upper Extremity Coordination Decreased bilaterally, tremors/shakiness noted with movement of UEs. ADL-Treatment Eating (QC): 3 (Per RN report, pt requires some assistance with some meals.) Lower Body Dressing (QC): 1 On/Off Footwear (QC): 1 Toileting Hygiene (QC): 1 Other Treatments Pt in recliner, agreeable to OT evaluation/tx. Pt very [place] during session. Pt provided information about [facility], indicates she has assistance with all ADLS at [facility], including sponge bath, dressing, toileting, and she is w/c bound at [facility]. Pt reluctantly participated in UE screen, decreased ROM noted bilaterally. Pt able to reach for cup on tray table and grasp in L hand during tx, but did not bring to her mouth to take a drink. Per PT report, pt dependent for sit to stand transfer on this date. Pt declined ADLs at this time. Per clinical judgment, pt would require 2 or more person assistance for tasks in standing (pant hike, toilet hygiene, functional tasks in standing, etc). Post tx, pt in recliner, call light in reach and all needs met. Education OT Patient Education: Correct positioning, Energy conservation, Modified ADL techniques, Progress toward Goal/Update tx plan, Purpose of tx/functional activities, Rehab process Teaching Recipient: Patient Teaching Methods: Discussion Response to Teaching: Verbalize Understanding OT Custodial Goals Steel Division Supervisor Goals 1=Demonstrate adherence to instructed precautions during ADL tasks. 2=Patient will verbalize/demonstrate understanding of assistive devices/modifications for ADL. 3=Patient will improve strength/tolerance for activity to enable patient to perform ADL's. OT Education/Plan Problem List/Assessment Assessment: No Skilled OT Needs ID'd No skilled OT Services indicated at this time, pt requires total assistance with ADLS at [facility] and would require total assistance at this time. D/C from OT services, as pt is at her PLOF. Discharge Recommendations Plan/Recommendations: Discharge/Goals Met Treatment Plan/Plan of Care Patient would benefit from OT for education, treatment and training to promote independence in ADL's, mobility, safety and/or upper extremity function for ADL's. Plan of Care: ADL Retraining, UE Funct Exercise/Act Treatment Duration: Oct 29, 2022 Frequency: 1 time per week (eval only) Estimated Hrs Per Day: .25 hour per day Rehab Potential: Guarded Time Start Time: 13:53 Stop Time: 14:03 DATE: Oct 29, 2022 Total Time Billed (hr/min): 10 Billed Treatment Time 1, ARMANDO YEAGER OT Oct 29, 2022 14:08
--- NOTE | 2022-10-29 14:10 | Physical Therapy Evaluation ---
PT Evaluation-General Medical Diagnosis Admission Date Oct 20, 2022 at 19:34 Medical Diagnosis: A-fib with RVR Onset Date: Oct 20, 2022 Therapy Diagnosis Therapy Diagnosis: generalized weakness/debility Height/Weight Height (Feet): 5 Height (Inches): 2.00 Weight (Pounds): 165 Weight (Ounces): 7.0 Precautions Precautions/Isolations: Fall Prevention, Standard Precautions Referral Physician: Ting Reason for Referral: Evaluation/Treatment Medical History Pertinent Medical History: Atrial Fib, CABG, CAD, COPD, DM, GERD, Heart Failure, HTN, OA Current History EMS secondary to SOA Reviewed History: Yes Social History Home: Assisted Living Prior Prior Level of Function SCALE: Activities may be completed with or without assistive devices. 6-Vkfjgqnqhx-segkhat completes the activity by him/herself with no assistance from a helper. 5-Set-up or Clean-up Assistance-helper sets up or cleans up; patient completes activity. [place] assists only prior to or following the activity. 4-Supervision or Touching Assistance-helper provides verbal cues and/or touching/steadying and/or contact guard assistance as patient completes activity. Assistance may be provided throughout the activity or intermittently. 3-Partial/Moderate Assistance-helper does LESS THAN HALF the effort. [place] lifts, holds or supports trunk or limbs, but provides less than half the effort. 2-Substantial/Maximal Assistance-helper does MORE THAN HALF the effort. [place] lifts or holds trunk or limbs and provides more than half the effort. 1-Ozrhpqpgk-wslvhb does ALL the effort. Patient does none of the effort to complete the activity. Or, the assistance of 2 or more helpers is required for the patient to complete the activity. If activity was not attempted, code reason: 7-Patient Refused. 9-Not Applicable-not attempted and the patient did not perform the activity before the current illness, exacerbation or injury. 10-Not Attempted due to Environmental Limitations-(lack of equipment, weather restraints, etc.). 88-Not Attempted due to Medical Conditions or Safety Concerns. Bed Mobility: 2 Transfers (B,C,W/C): 2 Gait: 9 (per patient) Stairs: 9 Wheelchair Mobility: 2 Indoor Mobility (Ambulation): Not [place] Stairs: Not [place] Prior Devices Use: Manual wheelchair PT Evaluation-Current Subjective Patient very [place]. Very reluctant to participate with PT. Objective Patient Orientation: Person Attachments: Askew Catheter ROM/Strength ROM Lower Extremities bilateral LE WFL Strength Lower Extremities no formal testing due to patient's inability to follow direction (grossly 3-/5 bilaterally) Integumentary/Posture Bowel Incontinence: Yes Bladder Incontinence: Askew Cath Neuromuscular (Tone, Coordination, Reflexes) severely diminished coordination Sensory Vision: Functional Hearing: Impaired (severely impaired) Transfers Sit to Stand (QC): 1 (patient not assisting/PT blocked bilateral knees) Gait Does the Patient Walk?: No and Walking Goal NOT indicated Walk 10 feet (QC): 9 Walk 50 ft with 2 Turns(QC): 9 Balance Sitting Static: Fair Sitting Dynamic: Fair Standing Static: Poor Standing Dynamic: Poor Assessment/Needs Patient will be seen short term by skilled PT to address functional strength and mobility to improve current LOF. Patient is very reluctant to participate with therapy. Rehab Potential: Poor PT Half-Way Goals Community Development Specialist Goals PT Half-Way Goals Time Frame: Nov 10, 2022 Roll Left & Right (QC): 2 Sit to Lying (QC): 2 Lying-Sitting on Side/Bed(QC): 2 Sit to Stand (QC): 2 Chair/Gli-lb-Njsha Xfer(QC): 2 PT Plan Problem List Problem List: Activity Tolerance, Functional Strength, Safety, Balance, Transfer, Bed Mobility Treatment/Plan Treatment Plan: Continue Plan of Care Treatment Plan: Bed Mobility, Education, Functional Activity Laisha, Functional Strength, Safety, Therapeutic Exercise, Transfers Treatment Duration: Nov 10, 2022 Frequency: 6 times per week Estimated Hrs Per Day: .25 hour per day Patient and/or Family Agrees t: Yes Time Time In: 1335 Time Out: 1350 DATE: Oct 29, 2022 Total Billed Treatment Time: 15 Total Billed Treatment 1 visit [facility] 15 min MANUEL GORDON PT Oct 29, 2022 14:10
[2022-10-29 16:01] VITALS: BP 141/66
[2022-10-29] MEDS: GABAPENTIN 600 MG (NEURONTIN) TAB PO SCH (19:23)
[2022-10-29] MEDS: ROSUVASTATIN 10 MG (CRESTOR) TABLET PO SCH (19:23)
[2022-10-29 19:57] VITALS: BP 115/53
--- NOTE | 2022-10-29 20:23 | Progress Note - Hospitalist ---
Subjective HPI/CC On Admission Date Seen by Provider: Oct 29, 2022 Time Seen by Provider: 10:00 CC: Respiratory failure requiring biPAP with AF RVR HPI: This is an 86yoWF clinic patient of [facility] who presents to the ER with dyspnea requiring biPAP and ICU admit along with Cardizem drip for AF RVR. Dr Torrez was consulted. No pain is reported. Checked meds and labs. Patient still requiring O2 and BiPAP at times. Patient is DNR. Subjective/Events-last exam Patient about the same PT and OT will be ordered Very poor prognosis overall Very anxious Review of Systems General: Fatigue, Malaise Objective Exam Vital Signs Vital Signs Date Time Temp Pulse Resp B/P (MAP) Pulse Ox O2 Delivery O2 Flow Rate FiO2 10/30/22 02:52 96 High Flow N/C 4.00 10/29/22 23:42 36.3 90 20 114/56 (75) Capillary Refill : Less Than 3 Seconds General Appearance: Anxious, Chronically ill, Mild Distress Respiratory: Decreased Breath Sounds, Wheezing Cardiovascular: Regular Rate, Rhythm Results/Procedures Lab Laboratory Tests 10/29/22 05:25 Patient resulted labs reviewed. Assessment/Plan Assessment and Plan Assess & Plan/Chief Complaint Assessment: Acute respiratory failure PNA AF RVR BiPAP required while in ICU CAD Dementia DNR Plan: Oxygen Patient very end-stage Diagnosis/Problems Diagnosis/Problems (1) Acute and chronic respiratory failure with hypoxia Status: Acute (2) Atrial fibrillation Status: Chronic (3) Coronary artery disease Status: Chronic BARBER CRONIN DO Oct 29, 2022 20:23
[2022-10-29] MEDS: MELATONIN 3 MG TABLET PO PRN (22:08)
[2022-10-29 23:42] VITALS: BP 114/56
[2022-10-30] MEDS: RT-ALBUTEROL/IPRATROPIUM 3 ML (DUONEB) VIAL INH SCH ×4 (02:52→21:26)
[2022-10-30] MEDS: KCL 10 MEQ TAB (MICRO K) PO SCH ×3 (05:28→18:53)
[2022-10-30] MEDS: predniSONE 10 MG TAB PO SCH (05:28)
[2022-10-30] MEDS: inSUlin ASPART (NovoLOG) 1 UNIT/0.01 ML (CHARGE PER UNIT) SC SCH ×4 (05:41→21:13)
[2022-10-30 06:04] LABS: BASOPHILS % (AUTO) 0 % (0-10); EOSINOPHILS % (AUTO) 0 % (0-10); HEMATOCRIT 32 % (35-52); HEMOGLOBIN 9.6 g/dL (11.5-16.0); LYMPHOCYTES # (AUTO) 1.8 10^3/uL (1.0-4.0); LYMPHOCYTES % (AUTO) 13 % (12-44); MEAN CORPUSCULAR HEMOGLOBIN 23 pg (25-34); MEAN CORPUSCULAR HGB CONC 30 g/dL (32-36); MEAN CORPUSCULAR VOLUME 75 fL (80-99); MEAN PLATELET VOLUME 10.4 fL (9.0-12.2); MONOCYTES # (AUTO) 1.5 10^3/uL (0.0-1.0); MONOCYTES % (AUTO) 11 % (0-12); NEUTROPHILS % (AUTO) 72 % (42-75); PLATELET COUNT 324 10^3/uL (130-400); WHITE BLOOD COUNT 13.8 10^3/uL (4.3-11.0)
--- NOTE | 2022-10-30 06:08 | Progress Note - Hospitalist ---
Subjective HPI/CC On Admission Date Seen by Provider: Oct 30, 2022 Time Seen by Provider: 10:00 CC: Respiratory failure requiring biPAP with AF RVR HPI: This is an 86yoWF clinic patient of [facility] who presents to the ER with dyspnea requiring biPAP and ICU admit along with Cardizem drip for AF RVR. Dr Torrez was consulted. No pain is reported. Checked meds and labs. Patient still requiring O2 and BiPAP at times. Patient is DNR. Subjective/Events-last exam No major changes Refuses therapy She is definitely a hospice candidate Review of Systems General: Fatigue, Malaise Objective Exam Vital Signs Vital Signs Date Time Temp Pulse Resp B/P (MAP) Pulse Ox O2 Delivery O2 Flow Rate FiO2 10/31/22 03:16 98 High Flow N/C 4.00 10/30/22 23:23 36.1 95 20 130/66 (87) Capillary Refill : Less Than 3 Seconds General Appearance: No Apparent Distress, WD/WN, Chronically ill Respiratory: No Accessory Muscle Use, No Respiratory Distress, Decreased Breath Sounds Cardiovascular: Regular Rate, Rhythm Neurologic/Psychiatric: Alert, Disoriented Results/Procedures Lab Laboratory Tests 10/30/22 05:12 10/30/22 05:35 Patient resulted labs reviewed. Assessment/Plan Assessment and Plan Assess & Plan/Chief Complaint Assessment: Acute respiratory failure PNA AF RVR BiPAP required while in ICU CAD Dementia DNR Plan: Oxygen Patient very end-stage Will need hospice Diagnosis/Problems Diagnosis/Problems (1) Acute and chronic respiratory failure with hypoxia Status: Acute (2) Atrial fibrillation Status: Chronic (3) Coronary artery disease Status: Chronic BARBER CRONIN DO Oct 30, 2022 06:08
[2022-10-30 06:31] LABS: BILIRUBIN,TOTAL 0.4 MG/DL (0.1-1.0); CREATININE SERUM 0.69 MG/DL (0.60-1.30); POTASSIUM 3.1 MMOL/L (3.6-5.0); TOTAL PROTEIN 5.6 GM/DL (6.4-8.2)
[2022-10-30 06:56] LABS: CALCIUM 8.8 MG/DL (8.5-10.1)
[2022-10-30 07:32] VITALS: BP 109/62
--- NOTE | 2022-10-30 08:44 | Physical Therapy Progress Note ---
Therapy Progress Note Patient refuses therapy this morning stating that she is too tired to do anything. Explained the benefits of therapy to patient but she continues to refuse. Will check back later if able. AVILA FERRARO PT Oct 30, 2022 08:44
[2022-10-30] MEDS: BENZONATATE 100 MG (TESSALON) CAPSULE PO SCH ×3 (08:58→19:59)
[2022-10-30] MEDS: GABAPENTIN 100 MG (NEURONTIN) CAP PO SCH ×2 (08:58→11:58)
[2022-10-30] MEDS: PANTOPRAZOLE 40 MG (PROTONIX) TAB PO SCH (08:58)
[2022-10-30] MEDS: LACTOBACILLUS ACIDOPHILUS (PROBIOTIC) CAPSULE PO SCH (08:58)
[2022-10-30] MEDS: DOCUSATE SODIUM 100 MG (COLACE) CAP PO SCH ×2 (08:58→19:59)
[2022-10-30] MEDS: MICONAZOLE 2% POWDER (DESENEX AF) 90 GM TOP SCH ×2 (08:58→20:00)
[2022-10-30] MEDS: DULoxetine 30 MG (CYMBALTA) CAP PO SCH ×2 (08:58→19:59)
[2022-10-30] MEDS: SENNOSIDES 8.6 MG (SENOKOT) TAB PO SCH ×2 (08:59→19:59)
[2022-10-30] MEDS: TAMSULOSIN 0.4 MG (FLOMAX) CAP PO SCH (08:59)
[2022-10-30] MEDS: FUROSEMIDE 40 MG (LASIX) TAB PO SCH (08:59)
[2022-10-30] MEDS: APIXABAN 2.5 MG (ELIQUIS) TABLET PO SCH ×2 (08:59→19:59)
[2022-10-30] MEDS: risperiDONE 0.5 MG (RisperDAL) TABLET PO SCH ×2 (08:59→19:59)
[2022-10-30] MEDS: RT--FLUTICASONE/SALMETEROL 232-14 (AIRDUO RespiCLICK) IH SCH ×2 (10:42→21:26)
--- NOTE | 2022-10-30 10:54 | Physical Therapy Progress Note ---
Therapy Progress Note PT attempted second attempt for OOB activity or exercises. Patient continued to adamantly refuse. SW and nursing notified. 1 ref MANUEL GORDON PT Oct 30, 2022 10:54
[2022-10-30 16:34] VITALS: BP 124/67
[2022-10-30 19:15] VITALS: BP 136/68
[2022-10-30] MEDS: GABAPENTIN 600 MG (NEURONTIN) TAB PO SCH (19:59)
[2022-10-30] MEDS: ROSUVASTATIN 10 MG (CRESTOR) TABLET PO SCH (19:59)
[2022-10-30 23:23] VITALS: BP 130/66
[2022-10-31] MEDS: RT-ALBUTEROL/IPRATROPIUM 3 ML (DUONEB) VIAL INH SCH ×2 (03:16→08:00)
[2022-10-31] MEDS: inSUlin ASPART (NovoLOG) 1 UNIT/0.01 ML (CHARGE PER UNIT) SC SCH ×2 (05:22→11:21)
[2022-10-31] MEDS: predniSONE 10 MG TAB PO SCH (05:22)
[2022-10-31 06:10] LABS: BASOPHILS % (AUTO) 0 % (0-10); EOSINOPHILS # (AUTO) 0.1 10^3/uL (0.0-0.3); EOSINOPHILS % (AUTO) 0 % (0-10); HEMATOCRIT 32 % (35-52); HEMOGLOBIN 9.6 g/dL (11.5-16.0); LYMPHOCYTES # (AUTO) 2.1 10^3/uL (1.0-4.0); LYMPHOCYTES % (AUTO) 14 % (12-44); MEAN CORPUSCULAR HEMOGLOBIN 23 pg (25-34); MEAN CORPUSCULAR HGB CONC 30 g/dL (32-36); MEAN CORPUSCULAR VOLUME 75 fL (80-99); MEAN PLATELET VOLUME 10.2 fL (9.0-12.2); MONOCYTES # (AUTO) 1.6 10^3/uL (0.0-1.0); MONOCYTES % (AUTO) 10 % (0-12); NEUTROPHILS # (AUTO) 11.5 10^3/uL (1.8-7.8); NEUTROPHILS % (AUTO) 73 % (42-75); PLATELET COUNT 330 10^3/uL (130-400); WHITE BLOOD COUNT 15.8 10^3/uL (4.3-11.0)
[2022-10-31 06:43] LABS: BILIRUBIN,TOTAL 0.4 MG/DL (0.1-1.0); CALCIUM 8.8 MG/DL (8.5-10.1); CREATININE SERUM 0.7 MG/DL (0.60-1.30); POTASSIUM 3.9 MMOL/L (3.6-5.0); TOTAL PROTEIN 5.6 GM/DL (6.4-8.2)
[2022-10-31] MEDS: RT--FLUTICASONE/SALMETEROL 232-14 (AIRDUO RespiCLICK) IH SCH (08:00)
[2022-10-31 08:15] VITALS: BP 117/66
[2022-10-31] MEDS: BENZONATATE 100 MG (TESSALON) CAPSULE PO SCH ×2 (08:31→11:22)
[2022-10-31] MEDS: polyethylene glycoL POWDER 17 GM (MIRALAX) PACK PO PRN (08:31)
[2022-10-31] MEDS: PANTOPRAZOLE 40 MG (PROTONIX) TAB PO SCH (08:31)
[2022-10-31] MEDS: GABAPENTIN 100 MG (NEURONTIN) CAP PO SCH ×2 (08:31→11:21)
[2022-10-31] MEDS: LACTOBACILLUS ACIDOPHILUS (PROBIOTIC) CAPSULE PO SCH (08:31)
[2022-10-31] MEDS: MILK OF MAGNESIA 400 MG/5 ML 30 ML UDC PO PRN (08:31)
[2022-10-31] MEDS: DULoxetine 30 MG (CYMBALTA) CAP PO SCH (08:31)
[2022-10-31] MEDS: DOCUSATE SODIUM 100 MG (COLACE) CAP PO SCH (08:31)
[2022-10-31] MEDS: APIXABAN 2.5 MG (ELIQUIS) TABLET PO SCH (08:32)
[2022-10-31] MEDS: risperiDONE 0.5 MG (RisperDAL) TABLET PO SCH (08:32)
[2022-10-31] MEDS: ACETAMINOPHEN 325 MG TABLET PO PRN (08:32)
[2022-10-31] MEDS: FUROSEMIDE 40 MG (LASIX) TAB PO SCH (08:32)
[2022-10-31] MEDS: KCL 10 MEQ TAB (MICRO K) PO SCH ×2 (08:32→11:21)
[2022-10-31] MEDS: SENNOSIDES 8.6 MG (SENOKOT) TAB PO SCH (08:32)
[2022-10-31] MEDS: TAMSULOSIN 0.4 MG (FLOMAX) CAP PO SCH (08:32)
[2022-10-31] MEDS: MICONAZOLE 2% POWDER (DESENEX AF) 90 GM TOP SCH (08:33)
--- NOTE | 2022-10-31 10:42 | Progress Note - Hospitalist ---
Subjective HPI/CC On Admission Date Seen by Provider: Oct 31, 2022 CC: Respiratory failure requiring biPAP with AF RVR HPI: This is an 86[facility]WF clinic patient of [facility] who presents to the ER with dyspnea requiring biPAP and ICU admit along with Cardizem drip for AF RVR. Dr Torrez was consulted. No pain is reported. Checked meds and labs. Patient still requiring O2 and BiPAP at times. Patient is DNR. Objective Exam Vital Signs Vital Signs Date Time Temp Pulse Resp B/P (MAP) Pulse Ox O2 Delivery O2 Flow Rate FiO2 10/31/22 12:00 35.8 59 18 117/66 97 Nasal Cannula 4.00 Capillary Refill : Less Than 3 Seconds Results/Procedures Lab Laboratory Tests 10/31/22 06:08 Patient resulted labs reviewed. Assessment/Plan Assessment and Plan Assess & Plan/Chief Complaint Assessment: Acute respiratory failure PNA AF RVR BiPAP required while in ICU CAD Dementia DNR Plan: Oxygen Patient very end-stage Will need hospice Diagnosis/Problems Diagnosis/Problems (1) Acute and chronic respiratory failure with hypoxia Status: Acute (2) Atrial fibrillation Status: Chronic (3) Coronary artery disease Status: Chronic BARBER CRONIN DO Oct 31, 2022 10:42
[2022-10-31] MEDS ORDERED: GABA-486 PO ×2 (11:12)
[2022-10-31] MEDS ORDERED: BENZ100C18 PO (11:12)
[2022-10-31] MEDS ORDERED: SIMV40TA25 PO (11:12)
[2022-10-31] MEDS ORDERED: LOPE-175 PO (11:12)
[2022-10-31] MEDS ORDERED: BUDE10.2 IH (11:12)
[2022-10-31] MEDS ORDERED: TMSL.4C PO (11:12)
[2022-10-31] MEDS ORDERED: PROP1.5D OU (11:12)
[2022-10-31] MEDS ORDERED: POTA-177 PO (11:12)
[2022-10-31] MEDS ORDERED: LACT1CAP39 PO (11:12)
[2022-10-31] MEDS ORDERED: RISP0.5T65 PO (11:12)
[2022-10-31] MEDS ORDERED: GBPN600T PO (11:12)
[2022-10-31] MEDS ORDERED: NYST1POW3 TP (11:12)
[2022-10-31] MEDS ORDERED: LACT10SO3 PO (11:12)
[2022-10-31] MEDS ORDERED: FLAVOXATE PO (11:12)
[2022-10-31] MEDS ORDERED: DILT180C85 PO (11:12)
[2022-10-31] MEDS ORDERED: MOM10U PO (11:12)
[2022-10-31] MEDS ORDERED: ACET-2267 PO (11:12)
[2022-10-31] MEDS ORDERED: DULO30CA49 PO (11:12)
[2022-10-31] MEDS ORDERED: FURO40TA4 PO (11:12)
[2022-10-31] MEDS ORDERED: IPRA3AMP31 INH (11:12)
[2022-10-31] MEDS ORDERED: PANT40TA52 PO (11:12)
[2022-10-31] MEDS ORDERED: MAG-123 PO (11:12)
[2022-10-31] MEDS ORDERED: MTP25TSR PO (11:12)
[2022-10-31] MEDS ORDERED: GUAI237L82 PO (11:12)
[2022-10-31] MEDS ORDERED: ACET325T49 PO (11:12)
[2022-10-31] MEDS ORDERED: ALPR0.5T7 PO (11:12)
[2022-10-31] MEDS ORDERED: LIDO700A45 TP (11:12)
[2022-10-31] MEDS ORDERED: APIX2.5T PO (11:12)
--- NOTE | 2022-10-31 11:13 | Discharge Summary ---
Discharge Summary Hospital Course Problems/Dx: (1) Acute and chronic respiratory failure with hypoxia Status: Acute (2) Atrial fibrillation Status: Chronic (3) Coronary artery disease Status: Chronic Hospital Course Date of Admission: Oct 20, 2022 at 19:34 Admission Diagnosis : Family Physician/Provider: Itz Chacon MD Date of Discharge: 10/31/22 Discharge Diagnosis: [ ] Hospital Course: Long hospital course after he was admitted for A. anurag with RVR and acute respiratory failure requiring multiple days in the ICU. She completed antibiotics. She required BiPAP. Cardiology was consulted and multiple meds were initiated. Dementia was profound and DO NOT RESUSCITATE was maintained during hospital course. She ultimately improved but was reluctant to participate in therapy. Overall prognosis extremely poor and if she fails skilled care she will be a hospice candidate. Labs and Pending Lab Test: Laboratory Tests 10/30/22 16:40: Glucometer 375H 10/30/22 21:03: Glucometer 268H 10/31/22 05:14: Glucometer 164H 10/31/22 06:08: White Blood Count 15.8H, Red Blood Count 4.25, Hemoglobin 9.6L, Hematocrit 32L, Mean Corpuscular Volume 75L, Mean Corpuscular Hemoglobin 23L, Mean Corpuscular Hemoglobin Concent 30L, Red Cell Distribution Width 23.6H, Platelet Count 330, Mean Platelet Volume 10.2, Immature Granulocyte % (Auto) 3, Neutrophils (%) (Auto) 73, Lymphocytes (%) (Auto) 14, Monocytes (%) (Auto) 10, Eosinophils (%) (Auto) 0, Basophils (%) (Auto) 0, Neutrophils # (Auto) 11.5H, Lymphocytes # (Auto) 2.1, Monocytes # (Auto) 1.6H, Eosinophils # (Auto) 0.1, Basophils # (Auto) 0.0, Immature Granulocyte # (Auto) 0.5H, Sodium Level 135, Potassium Level 3.9, Chloride Level 93L, Carbon Dioxide Level 34H, Anion Gap 8, Blood Urea Nitrogen 17, Creatinine 0.70, Estimat Glomerular Filtration Rate 85, BUN/Creatinine Ratio 24, Glucose Level 157H, Calcium Level 8.8, Corrected Calcium 9.6, Total Bilirubin 0.4, Aspartate Amino Transf (AST/SGOT) 11, Alanine Aminotransferase (ALT/SGPT) 29, Alkaline Phosphatase 42, Total Protein 5.6L, Albumin 3.0L 10/31/22 11:10: Glucometer 398H Home Meds Active Tessalon Perles (Benzonatate) 100 Mg Capsule 100 Mg PO TID Diltiazem 24Hr ER (Diltiazem HCl) 180 Mg Cap.er.24h 180 Mg PO BID Iprat-Albut 0.5-3(2.5) mg/3 ml (Ipratropium/Albuterol Sulfate) 0.5 Mg-3 Mg (2.5 Mg Base)/3 Ml Ampul.neb 3 Ml INH RTQ2H PRN [Flavoxate] 100MG Tab 200 Mg PO TID TAKES 2 100MG TABLETS Lidocaine 5% Patch (Lidocaine) 5 % Adh..patch 1 Each TP DAILY PRN Imodium A-D (Loperamide HCl) 2 Mg Capsule 2 Mg PO QID PRN Lactulose 10 Gram/15 Ml Solution 15 Ml PO BID PRN Milk of Magnesia (Magnesium Hydroxide) 2,400 Mg/10 Ml Oral.susp 30 Ml PO DAILY PRN Gabapentin 600 Mg Tablet 600 Mg PO HS Metoprolol Succinate 25 Mg Tab.er.24h 25 Mg PO HS Simvastatin 40 Mg Tablet 40 Mg PO HS Gabapentin 100 Mg Capsule 200 Mg PO 1200 TAKES 2 100MG CAPSULES Nystatin 10 Billion Unit Powder.ea. 1 Applic TP BID Gabapentin 100 Mg Capsule 100 Mg PO DAILY Systane Complete (Propylene Glycol) 0.6 % Drops 1 Drop OU TID Symbicort 160-4.5 Mcg Inhaler (Budesonide/Formoterol Fumarate) 160 Mcg-4.5 Mcg/Actuation Hfa.aer.ad 2 Puff IH BID Risperidone 0.5 Mg Tablet 0.5 Mg PO Q12H Potassium Chloride 10 Meq Tab.er.prt 10 Meq PO DAILY Furosemide 40 Mg Tablet 40 Mg PO DAILY Duloxetine HCl 30 Mg Capsule.dr 30 Mg PO BID Culturelle (Lactobacillus Rhamnosus GG) 10 Billion Cell Capsule 1 Each PO DAILY Tylenol Extra Strength (Acetaminophen) 500 Mg Tablet 500 Mg PO TID Antacid Anti-Gas Liquid (Mag Hydrox/Al Hydrox/Simeth) 400 Mg-400 Mg-40 Mg/5 Ml Oral.susp 30 Ml PO Q4H PRN Eliquis (Apixaban) 2.5 Mg Tablet 2.5 Mg PO BID Robitussin Cough-Chest Dm Liq (Guaifenesin/Dextromethorphan) 100 Mg-5 Mg/5 Ml Liquid 10 Ml PO Q4H PRN Pantoprazole Sodium 40 Mg Tablet.dr 40 Mg PO DAILY Acetaminophen 325 Mg Tablet 650 Mg PO Q4H PRN TAKES 2 (325MG) TABLETS Flomax (Tamsulosin HCl) 0.4 Mg Cap 0.4 Mg PO DAILY Prednisone 10 Mg Tab.ds.pk 10 Mg PO DAILY Take 6 tabs(60mg)daily,decrease by 1 tab(10MG)daily. Assessment/Pt Instructions PCP on skilled nursing rounds Discharge Planning: <30 minutes discharge planning Discharge Instructions Discharge Diet: No Restrictions Discharge Physical Examination Vital Signs Vital Signs Date Time Temp Pulse Resp B/P (MAP) Pulse Ox O2 Delivery O2 Flow Rate FiO2 10/31/22 08:15 35.8 59 18 117/66 (83) 97 Nasal Cannula 4.00 General Appearance: No Apparent Distress, WD/WN, Chronically ill Allergies: Coded Allergies: Sulfa (Sulfonamide Antibiotics) (Verified Allergy, Unknown, 04/16/19) diphenhydramine HCl (Verified Allergy, Unknown, 04/16/19) hydrochlorothiazide (Unverified Allergy, Unknown, 04/16/19) varenicline tartrate (Verified Allergy, Unknown, 04/16/19) Discharge Summary Date of Admission Oct 20, 2022 at 19:34 Date of Discharge Discharge Date: Oct 31, 2022 Admission Diagnosis Assessment: Acute respiratory failure PNA AF RVR BiPAP required CAD Dementia DNR Plan: BiPAP Cardizem ip Dr Torrez consulted Discharge Diagnosis Assessment: Acute respiratory failure PNA AF RVR BiPAP required while in ICU CAD Dementia DNR Plan: Oxygen Patient very end-stage Will need hospice (1) Acute and chronic respiratory failure with hypoxia Status: Acute (2) Atrial fibrillation Status: Chronic (3) Coronary artery disease Status: Chronic BARBER CRONIN DO Oct 31, 2022 11:13
[2022-10-31 12:00] VITALS: BP 117/66
--- NOTE | 2022-10-31 17:59 | Physician Query Clarification ---
Physician Query-General Query to Physician: The medical record reflects the following clinical scenario: History/Risk factors: Pneumonia, advanced age, CHF, At fib with RVR on admission, Clinical Findings: Admission VS/Labs: Vital Signs: HR 144, RR 26, BP 143/81, SpO2 97% sat on 4.5 L nonrebreather T 38.4, WBC 10.8, pH 7.29, PCO2 60, PO2 54 on 7 L, lactic acid 0.88, no Blood cultures drawn, WBC did increase to 22.6 5 days after admission but had also received IV steroids Treatment: Within first 12 hours Cefepime, IV, Vancomycin IV, IV Fluids not given, Question: Is Sepsis a clinically valid diagnosis and present on admission? "Suspected Sepsis" was documented in the ER physician notes, "admitted with sepsis and COPD exacerbation" was documented by Gardenia Trujillo on the consult note on the day of admission and Sepsis was documented by the attending on several progress notes from the to the , with no further documentation of Sepsis in the medical record. If yes, please document in the Progress Notes and Discharge Summary. 1. Yes, Sepsis is clinically valid and present on admission, condition resolved 2. No, Sepsis ruled out 3. Other, with explanation of clinical findings 4. Undetermined, no explanation for clinical findings In responding to this query, please exercise your independent professional judgment. The purpose of this communication is to more accurately reflect the complexity of your patients condition. The fact that a question is asked does not imply that any particular answer is desired or expected. Thank you for your timely response to this clarification. Deidra Michel MSN, RN Clinical Relations Director [email or web address] PHYSICIAN RESPONSE: Based on the clinical findings in the record, please respond to the query above on this document as an addendum. Physician Response: Physician Response no sepsis ruled out If you have questions please contact: Transaction Advisory Services Manager: Ext: Thank you for your time and cooperation. Clinical Relations Director/Transaction Advisory Services Manager This is a permanent part of the medical record DEIDRA MICHEL Oct 31, 2022 17:59 BARBER CRONIN DO Oct 31, 2022 19:49
--- NOTE | 2022-11-01 12:20 | Physician Query Clarification ---
PQ-Uncertain Diagnosis Admission/Discharge Admission Date: Oct 20, 2022 at 19:34 Discharge Date: Oct 31, 2022 at 12:00 Dr. Maguire, The medical record reflects the following clinical scenario: History/Risk Factors: PAF, acute on chronic diastolic CHF, acute on chronic respiratory failure w/hypoxia Clinical Findings: 0.033 troponin Treatment: IV Diltiazem Question: Is IL 2 a clinically valid diagnosis? IL 2 was documented in the ER record with no further documentation in the medical record. Please document a response in Progress Note or Discharge Summary. 1. Yes, clinically valid, condition resolved. 2. No, condition ruled out. 3. Other, with explanation of clinical findings. 4. Undetermined, no explanation for clinical findings. PHYSICIAN RESPONSE Diagnosis clinically valid: Yes, Conditon resolved In responding to this query, please exercise your independent professional judgment. The purpose of this communication is to more accurately reflect the complexity of your patients condition. The fact that a question is asked does not imply that any particular answer is desired or expected. Thank you for your timely response to this clarification. Requestors name: Valentina THIS PHYSICIAN QUERY FORM IS A PERMANENT PART OF THE MEDICAL RECORD VALENTINA HERNANDEZ Nov 01, 2022 12:20 BARBER MAGUIRE DO Nov 01, 2022 20:22
== END 2022-10-31 12:00 | DRG 280 ==
LOC: EDUNIT# 18:25 → ER 18:26 → ICU 19:34 → 4TH 10-21 17:50
PROVIDERS: ADMIT Internal Medicine; ATTEND Internal Medicine
PROC: 5A09357 Assistance with Respiratory Ventilation, Less than 24 Consecutive Hours, Continuous Positive Airway Pressure (ICD-10-PCS; principal; 2022-10-20)
PROC: 5A0935A Assistance with Respiratory Ventilation, Less than 24 Consecutive Hours, High Flow/Velocity Cannula (ICD-10-PCS; 2022-10-21)
DX: I48.0 Paroxysmal atrial fibrillation (principal); I21.A1 Myocardial infarction type 2; I50.33 Acute on chronic diastolic (congestive) heart failure; J18.9 Pneumonia, unspecified organism; J96.21 Acute and chronic respiratory failure with hypoxia; N39.0 Urinary tract infection, site not specified; J44.0 Chronic obstructive pulmonary disease with (acute) lower respiratory infection; J44.1 Chronic obstructive pulmonary disease with (acute) exacerbation; E87.29 Other acidosis; Z66 Do not resuscitate; I11.0 Hypertensive heart disease with heart failure; E78.5 Hyperlipidemia, unspecified; I25.10 Atherosclerotic heart disease of native coronary artery without angina pectoris; E78.00 Pure hypercholesterolemia, unspecified; I27.20 Pulmonary hypertension, unspecified; F03.90 Unspecified dementia, unspecified severity, without behavioral disturbance, psychotic disturbance, mood disturbance, and anxiety; I70.1 Atherosclerosis of renal artery; D64.9 Anemia, unspecified; I71.40 Abdominal aortic aneurysm, without rupture, unspecified; E11.9 Type 2 diabetes mellitus without complications; K21.9 Gastro-esophageal reflux disease without esophagitis; F41.0 Panic disorder [episodic paroxysmal anxiety]; F32.A Depression, unspecified; Z99.81 Dependence on supplemental oxygen; Z87.891 Personal history of nicotine dependence; Z79.01 Long term (current) use of anticoagulants; Z88.2 Allergy status to sulfonamides; Z79.82 Long term (current) use of aspirin; Z95.1 Presence of aortocoronary bypass graft; Z83.3 Family history of diabetes mellitus; Z82.49 Family history of ischemic heart disease and other diseases of the circulatory system
CPT/HCPCS: 36415; 36600; 71045; 80048; 80053; 82607; 82805; 82947; 83540; 83605; 83735; 83880; 84100; 84484; 85007; 85025; 85027; 86850; 86900; 86901; 86920; 93005; 94640; 94660; 94664; 94760; 96374; 96375

== ENCOUNTER 2023-01-26 06:48 | Emergency (ER) | payer MEDICARE, MEDICAID ==
[~2023-01-26 06:48] MED LIST changes: +ACET-2267 PO; +ALBU1.25 INH; +ALPR0.5T7 PO; +BENZ100C18 PO; +DILT360C36 PO; +DOXY100T2 PO; +DULO30CA49 PO; +FLAVOXATE; +GABA-486 PO; +GBPN600T PO; +IPRA3AMP31 INH; +LACT10SO3 PO; +LACT1CAP39 PO; +LIDO700A45 TP; +LOPE-175 PO; +MOM10U PO; +NYST1POW3 TP; +POTA-177 PO; +RISP0.5T65 PO; +SIMV40TA25 PO
[2023-01-26] MEDS ORDERED: NS IV 500 ML 500 ML IV STA (07:05)
--- NOTE | 2023-01-26 07:06 | ED Respiratory ---
General Chief Complaint: Respiratory Problems Stated Complaint: BREATHING PROBLEMS Source: patient, group home records History of Present Illness Date Seen by Provider: Jan 26, 2023 Time Seen by Provider: 06:56 Initial Comments Patient is an 87-year-old female who presents from a local group home chief complaint cough, shortness of breath and fever. Patient reports that she has had the symptoms for the last 3 days. She had advised group home staff this morning. She does not feel well. She has a coarse productive cough. She is also complaining of a little central abdominal discomfort where she has a hernia. She states its been several days since she had a bowel movement. She is not nauseous. No vomiting. No sore throat, runny nose or congestion. She does have a history of dementia per the medical record. She also has a history of atrial fibrillation, currently heart rate is in the 120s. She is anticoagulated on Eliquis 2.5 mg twice daily per the record. She is on nasal cannula oxygen currently holding it in her mouth due to nasal congestion. No other complaints of recent illness or injury. Timing/Duration: other (3d) Severity: moderate Associated Symptoms: nasal congestion, shortness of breath Allergies and Home Medications Allergies Coded Allergies: Sulfa (Sulfonamide Antibiotics) (Verified Allergy, Unknown, 04/16/19) diphenhydramine HCl (Verified Allergy, Unknown, 04/16/19) hydrochlorothiazide (Unverified Allergy, Unknown, 04/16/19) varenicline tartrate (Verified Allergy, Unknown, 04/16/19) Patient Home Medication List Home Medication List Reviewed: Yes Acetaminophen (Acetaminophen) 325 Mg Tablet, 650 MG PO Q4H PRN for PAIN-MILD (1- 4) Prescribed by: BARBER CRONIN on 10/31/22 1112 Acetaminophen (Tylenol Extra Strength) 500 Mg Tablet, 500 MG PO TID Prescribed by: BARBER CRONIN on 10/31/22 1112 Alprazolam (Alprazolam) 0.5 Mg Tablet, 0.5 MG PO Q4H PRN for ANXIETY Prescribed by: BARBER CRONIN on 10/31/22 1112 Amoxicillin/Potassium Clav (Amox Tr-K Clv 500-125 mg Tab) 500 Mg-125 Mg Tablet, 1 EACH PO BID Prescribed by: DANITZA MARY on 01/26/23 1020 Apixaban (Eliquis) 2.5 Mg Tablet, 2.5 MG PO BID Prescribed by: BARBER CRONIN on 10/31/221111 Benzonatate (Tessalon Perles) 100 Mg Capsule, 100 MG PO TID Prescribed by: BARBER CRONIN on 10/31/221111 Budesonide/Formoterol Fumarate (Symbicort 160-4.5 Mcg Inhaler) 160 Mcg-4.5 Mcg/Actuation Hfa.aer.ad, 2 PUFF IH BID Prescribed by: BARBER CRONIN on 10/31/221111 Diltiazem HCl (Diltiazem 24Hr ER) 180 Mg Cap.er.24h, 180 MG PO BID Prescribed by: BARBER CRONIN on 10/31/221111 Duloxetine HCl (Duloxetine HCl) 30 Mg Capsule.dr, 30 MG PO BID Prescribed by: BARBER CRONIN on 10/31/221111 Furosemide (Furosemide) 40 Mg Tablet, 40 MG PO DAILY Prescribed by: BARBER CRONIN on 10/31/221111 Gabapentin (Gabapentin) 100 Mg Capsule, 100 MG PO DAILY Prescribed by: BARBER CRONIN on 10/31/221111 Gabapentin (Gabapentin) 100 Mg Capsule, 200 MG PO 1200 Prescribed by: BARBER CRONIN on 10/31/221111 Gabapentin (Gabapentin) 600 Mg Tablet, 600 MG PO HS Prescribed by: BARBER CRONIN on 10/31/221111 Guaifenesin/Dextromethorphan (Robitussin Cough-Chest Dm Liq) 100 Mg-5 Mg/5 Ml Liquid, 10 ML PO Q4H PRN for COUGH Prescribed by: BARBER CRONIN on 10/31/221111 Ipratropium/Albuterol Sulfate (Iprat-Albut 0.5-3(2.5) mg/3 ml) 0.5 Mg-3 Mg (2.5 Mg Base)/3 Ml Ampul.neb, 3 ML INH RTQ2H PRN for dyspnea, wheezing Prescribed by: BARBER CRONIN on 10/31/221111 Lactobacillus Rhamnosus GG (Culturelle) 10 Billion Cell Capsule, 1 EACH PO DAILY Prescribed by: BARBER CRONIN on 10/31/221111 Lactulose (Lactulose) 10 Gram/15 Ml Solution, 15 ML PO BID PRN for CONSTIPATION- 3RD LINE Prescribed by: BARBER CRONIN on 10/31/221111 Lidocaine (Lidocaine 5% Patch) 5 % Adh..patch, 1 EACH TP DAILY PRN for NERVE PAIN Prescribed by: BARBER CRONIN on 10/31/221111 Loperamide HCl (Imodium A-D) 2 Mg Capsule, 2 MG PO QID PRN for LOOSE STOOLS Prescribed by: BARBER CRONIN on 10/31/221111 Mag Hydrox/Al Hydrox/Simeth (Antacid Anti-Gas Liquid) 400 Mg-400 Mg-40 Mg/5 Ml Oral.susp, 30 ML PO Q4H PRN for INDIGESTION Prescribed by: BARBER CRONIN on 10/31/221111 Magnesium Hydroxide (Milk of Magnesia) 2,400 Mg/10 Ml Oral.susp, 30 ML PO DAILY PRN for CONSTIPATION-7TH LINE Prescribed by: BARBER CRONIN on 10/31/221111 Metoprolol Succinate (Metoprolol Succinate) 25 Mg Tab.er.24h, 25 MG PO HS Prescribed by: BARBER CRONIN on 10/31/221111 Nystatin (Nystatin) 10 Billion Unit Powder.ea., 1 APPLIC TP BID Prescribed by: BARBER CRONIN on 10/31/221111 Pantoprazole Sodium (Pantoprazole Sodium) 40 Mg Tablet.dr, 40 MG PO DAILY Prescribed by: BARBER CRONIN on 10/31/221111 Potassium Chloride (Potassium Chloride) 10 Meq Tab.er.prt, 10 MEQ PO DAILY Prescribed by: BARBER CRONIN on 10/31/221111 Prednisone (Prednisone) 10 Mg Tab.ds.pk, 10 MG PO DAILY Prescribed by: BARBER CRONIN on 10/29/221116 Propylene Glycol (Systane Complete) 0.6 % Drops, 1 DROP OU TID Prescribed by: BARBER CRONIN on 10/31/221111 Risperidone (Risperidone) 0.5 Mg Tablet, 0.5 MG PO Q12H Prescribed by: BARBER CRONIN on 10/31/221111 Simvastatin (Simvastatin) 40 Mg Tablet, 40 MG PO HS Prescribed by: BARBER CRONIN on 10/31/221111 Tamsulosin HCl (Flomax) 0.4 Mg Cap, 0.4 MG PO DAILY Prescribed by: BARBER CRONIN on 10/31/221111 [Flavoxate] 100MG TAB, 200 MG PO TID Prescribed by: BARBER CRONIN on 10/31/221111 Review of Systems Review of Systems Constitutional: see HPI EENTM: nose congestion Respiratory: cough, phlegm, short of breath Cardiovascular: no symptoms reported Gastrointestinal: abdominal pain, constipation (2-3 days) Genitourinary: no symptoms reported Musculoskeletal: no symptoms reported Skin: other ("bed sores") All Other Systems Reviewed Negative Unless Noted: Yes Past Iwldjsc-Hvbype-Yzzjpy Hx Immunizations Up To Date Tetanus Booster (TDap): Unknown PED Vaccines UTD: No First/Initial COVID19 Vaccinat: Nov COVID19 Vaccination Robert: Nov COVID19 Vaccination Date: NOV Seasonal Allergies Seasonal Allergies: No Past Medical History Surgery/Hospitalization HX: pmh: uti, htn, osteoarthritis, dm 2, copd, disorder, gerd, hyperlipidemia, dysphagia, afib, cad, Surgeries: Yes Adenoidectomy, Appendectomy, Bladder Surgery, Cardiac, CABG, Gallbladder, Hysterectomy, Joint Replacement, Orthopedic, Tonsillectomy Respiratory: Yes Asthma, COPD Currently Using CPAP: No Currently Using BIPAP: No Cardiac: Yes (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, 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, Atrial Fibrillation, Coronary Artery Disease, High Cholesterol, Hypertension Neurological: Yes (HAD BRAIN SURGERY FOR ANEURYSM 2008, dysphagia) Reproductive Disorders: Yes Female Reproductive Disorders: Endometriosis CHIROPRACTIC CARE History: Hysterectomy Sexually Transmitted Disease: No Genitourinary: Yes (suprapubic catheter) UTI-Chronic Gastrointestinal: Yes Gastroesophageal Reflux, Chronic Constipation Musculoskeletal: Yes ( BILAT ROTATOR CUFF SURGERY) Degenerate Disk Disease, Arthritis, Chronic Back Pain Endocrine: Yes Diabetes, Non-Insulin dep Cataract Loss of Vision: Denies Hearing Impairment: Denies Cancer: No Psychosocial: Yes (panic disorder) Anxiety, Depression Integumentary: No Blood Disorders: No Adverse Reaction/Blood Tranf: No Family Medical History Cancer 09 SISTER Cancer of colon Cataract 03 MOTHER, Onset:Unknown Family history: Allergy 03 FATHER, Onset:Unknown 03 MOTHER, Onset:Unknown Family history: Arthritis 03 FATHER, Onset:Unknown 03 MOTHER, Onset:Unknown 09 SISTER, Onset:Unknown Family history: Cardiovascular disease 03 FATHER, Onset:Unknown 03 MOTHER, Onset:Unknown 09 BROTHER, Onset:Unknown 09 SISTER, Onset:Unknown Family history: Diabetes mellitus 03 MOTHER, Onset:Unknown Family history: Gastrointestinal disease 03 FATHER, Onset:Unknown Family history: Hypertension 03 MOTHER, Onset:Unknown Family history: Osteoporosis 03 MOTHER, Onset:Unknown Hearing loss 03 FATHER, Onset:Unknown Heart disease 03 FATHER, Onset:Unknown 03 MOTHER, Onset:Unknown 09 BROTHER, Onset:Unknown Hypercholesterolemia 03 MOTHER, Onset:Unknown Malignant neoplasm of lung 09 SISTER, Onset:Unknown Myocardial infarction 09 BROTHER, Onset:Unknown Parkinson's disease Stroke 03 FATHER, Onset:Unknown Thyroid disease No Family History of: Abdominal aortic aneurysm Sussex's disease Alcoholism Aphasia Chest pain Congenital heart disease Congestive heart failure Cystic fibrosis Dementia Dysphagia Family history: Alzheimer's disease Family history: Asthma Family history: Breast disease Family history: Coronary thrombosis Family history: Glaucoma Family history: Thyroid disorder Headache Hereditary disease History of - anemia History of - disorder History of - respiratory disease History of drug abuse Human immunodeficiency virus (HIV) seropositivity Infertile Kidney disease Prostate cancer Psychotic disorder Seizure disorder Tuberculosis Visual impairment Heart Disease, Diabetes Physical Exam Vital Signs - First Documented Capillary Refill : Height: 5'2.00" Weight: 165lbs. 7.0oz. [id number]; 34.88 BMI Method:Stated General Appearance: WD/WN, no apparent distress Eyes: Bilateral Eye Normal Inspection, Bilateral Eye PERRL, Bilateral Eye EOMI HEENT: PERRL/EOMI Respiratory: lungs clear, normal breath sounds, no respiratory distress, no accessory muscle use Cardiovascular: tachycardia (121), irregularly irregular Gastrointestinal: soft, other (palpable ventral hernia just above the umbilicus. INdurated. Not soft. mildly tender to palpation.) Extremities: normal range of motion, normal inspection Neurologic/Psychiatric: alert, normal mood/affect Skin: normal color, warm/dry Focused Exam Lactate Level 01/26/23 07:40: Lactic Acid Level 1.18 Lactic Acid Level Laboratory Tests Test 01/26/23 07:40 Lactic Acid Level 1.18 MMOL/L (0.50-2.00) Progress/Results/Core Measures Suspected Sepsis SIRS Temperature: Pulse: Respiratory Rate: Laboratory Tests 01/26/23 07:40: White Blood Count 9.6 Blood Pressure / Mean: 01/26/23 07:40: Lactic Acid Level 1.18 Laboratory Tests 01/26/23 07:40: Creatinine 0.61, INR Comment 1.3, Platelet Count 268, Total Bilirubin 0.3 Results/Orders Lab Results Laboratory Tests Test 01/26/23 07:40 01/26/23 08:15 01/26/23 09:04 Range/Units White Blood Count 9.6 4.3-11.0 10^3/uL Red Blood Count 3.72 L 3.80-5.11 10^6/uL Hemoglobin 9.6 L 11.5-16.0 g/dL Hematocrit 30 L 35-52 % Mean Corpuscular Volume 82 80-99 fL Mean Corpuscular Hemoglobin 26 25-34 pg Mean Corpuscular Hemoglobin Concent 32 32-36 g/dL Red Cell Distribution Width 17.6 H 10.0-14.5 % Platelet Count 268 130-400 10^3/uL Mean Platelet Volume 9.8 9.0-12.2 fL Immature Granulocyte % (Auto) 0 % Neutrophils (%) (Auto) 74 42-75 % Lymphocytes (%) (Auto) 14 12-44 % Monocytes (%) (Auto) 10 0-12 % Eosinophils (%) (Auto) 2 0-10 % Basophils (%) (Auto) 0 0-10 % Neutrophils # (Auto) 7.2 1.8-7.8 10^3/uL Lymphocytes # (Auto) 1.3 1.0-4.0 10^3/uL Monocytes # (Auto) 1.0 0.0-1.0 10^3/uL Eosinophils # (Auto) 0.1 0.0-0.3 10^3/uL Basophils # (Auto) 0.0 0.0-0.1 10^3/uL Immature Granulocyte # (Auto) 0.0 0.0-0.1 10^3/uL Prothrombin Time 16.8 H 12.2-14.7 SEC INR Comment 1.3 0.8-1.4 Activated Partial Thromboplast Time 47 H 24-35 SEC Sodium Level 136 135-145 MMOL/L Potassium Level 3.0 L 3.6-5.0 MMOL/L Chloride Level 96 L 98-107 MMOL/L Carbon Dioxide Level 26 21-32 MMOL/L Anion Gap 14 5-14 MMOL/L Blood Urea Nitrogen 6 L 7-18 MG/DL Creatinine 0.61 0.60-1.30 MG/DL Estimat Glomerular Filtration Rate 88 BUN/Creatinine Ratio 10 Glucose Level 144 H 70-105 MG/DL Lactic Acid Level 1.18 0.50-2.00 MMOL/L Calcium Level 8.8 8.5-10.1 MG/DL Corrected Calcium 9.5 8.5-10.1 MG/DL Total Bilirubin 0.3 0.1-1.0 MG/DL Aspartate Amino Transf (AST/SGOT) 12 5-34 U/L Alanine Aminotransferase (ALT/SGPT) 6 0-55 U/L Alkaline Phosphatase 52 40-136 U/L B-Type Natriuretic Peptide 400.2 H <100.0 PG/ML Total Protein 6.1 L 6.4-8.2 GM/DL Albumin 3.1 L 3.2-4.5 GM/DL Influenza Type A (RT-PCR) Not Detected Not Detecte Influenza Type B (RT-PCR) Not Detected Not Detecte SARS-CoV-2 RNA (RT-PCR) Not Detected Not Detecte Urine Color YELLOW Urine Clarity CLOUDY Urine pH 7.5 5-9 Urine Specific Marshall <=1.005 1.016-1.022 Urine Protein TRACE H NEGATIVE Urine Glucose (UA) NEGATIVE NEGATIVE Urine Ketones NEGATIVE NEGATIVE Urine Nitrite NEGATIVE NEGATIVE Urine Bilirubin NEGATIVE NEGATIVE Urine Urobilinogen 0.2 < = 1.0 MG/DL Urine Leukocyte Esterase 3+ H NEGATIVE Urine RBC (Auto) 3+ H NEGATIVE Urine RBC 2-5 H /HPF Urine WBC 10-25 H /HPF Urine Squamous Epithelial Cells 2-5 /HPF Urine Crystals PRESENT H /LPF Urine Amorphous Sediment MOD VI PHOSPHATE H /LPF Urine Bacteria LARGE H /HPF Urine Casts NONE /LPF Urine Mucus NEGATIVE /LPF Urine Culture Indicated CULTURE PENDING My Orders Orders - DANITZA MARY MD Cbc With Automated Diff (01/26/23 07:05) Comprehensive Metabolic Panel (01/26/23 07:05) Blood Culture (01/26/23 07:05) Sputum Culture (01/26/23 07:05) Urinalysis (01/26/23 07:05) Urine Culture (01/26/23 07:05) Protime With Inr (01/26/23 07:05) Partial Thromboplastin Time (01/26/23 07:05) Chest 1 View, Ap/Pa Only (01/26/23 07:05) Ed Iv/Invasive Line Start (01/26/23 07:05) Ed Iv/Invasive Line Start (01/26/23 07:05) Vital Signs Adult Sepsis Patie Q15M (01/26/23 07:05) O2 (01/26/23 07:05) Remove Rings In Anticipation O (01/26/23 07:05) Lactic Acid Analyzer (01/26/23 07:05) Catheter(Urinary) Insert & Ass 03,15 (01/26/23 07:05) Ns Iv 500 Ml (Sodium Chloride 0.9%) (01/26/23 07:05) Covid 19 Inhouse Test (01/26/23 08:13) Influenza A And B By Pcr (01/26/23 08:13) Isolation Central Supply Req (01/26/23 08:13) Bnp Pollo (01/26/23 08:25) Diltiazem Injection (Cardizem Injection) (01/26/23 08:30) Ceftriaxone 1 Gm Pre-Mix (Rocephin 1 Gm (01/26/23 10:00) Medications Given in ED Current Medications Medications Dose Ordered Sig/Kervin Route Start Time Stop Time Status Last Admin Dose Admin Ceftriaxone Sodium/Dextrose 50 ml @ 100 mls/hr ONCE ONCE IV 01/26/23 10:00 01/26/23 10:29 DC 01/26/23 10:22 100 MLS/HR Diltiazem HCl 10 mg ONCE ONCE IVP 01/26/23 08:30 01/26/23 08:31 DC 01/26/23 08:36 10 MG Vital Signs/I&O 01/26/23 01/26/23 01/26/23 01/26/23 06:55 06:55 07:00 08:36 Temp 37.4 Pulse 130 118 Resp 20 B/P (MAP) 120/78 (92) 129/64 Pulse Ox 95 94 O2 Delivery Nasal Cannula Nasal Cannula Nasal Cannula O2 Flow Rate 4.00 2.00 2.00 01/26/23 10:43 Pulse 109 Resp 16 B/P (MAP) 114/74 Pulse Ox 94 Capillary Refill : Progress Note : Time: 11:50 Progress Note Patient seen and evaluated by me, 87-year-old with cough, generalized malaise, fatigue and fever. Evaluation today includes physical exam, CBC, chemistry,, urinalysis, chest x-ray, flu and COVID swab. Pertinent physical exam findings, course, wet sounding semiproductive cough with occasional scattered expiratory wheeze. Room air sats 94 to 95%. No respiratory distress or increased work of breathing. Rapid irregular heartbeat at 120-125 beats a minute. Abdomen is soft with mild tenderness in supraumbilical ventral hernia. Bowel sounds are present. Labs reviewed, normal CBC, normal chemistry, chest x-ray unremarkable urinalysis shows signs of infection. Flu and COVID-negative. I reviewed prior urinalysis which showed sensitivity to Augmentin. Prescription for 500 twice daily sent to her pharmacy. Patient was treated with IV Cardizem 10 mg which resolved her A-fib RVR from the 120s down to the upper 90s. Blood pressure stayed good. Patient does have a suprapubic catheter that had not been changed since November 24. This does need to be changed on a monthly basis. We will make sure that the group home knows this. Discharged back to home in stable condition. Diagnostic Imaging Diagonstic Imaging: Xray Plain Films/CT/US/NM/MRI: chest Comments [facility]. [place], [place] NAME: JULES REYES [facility] REC#: [id number] PT STATUS: REG ER : 1935 PHYSICIAN: DANITZA MARY MD ADMIT DATE: 01/26/23/ER Draft Date of Exam:01/26/23 CHEST 1 VIEW, AP/PA ONLY EXAM: CHEST 1 VIEW, AP/PA ONLY INDICATION: Fever. Cough. Shortness of breath. COMPARISON: 10/21/2022. FINDINGS: Cardiomegaly with diffuse prominence of interstitium and patchy airspace opacities. Small right pleural effusion. No pneumothorax. Sternotomy with CABG. No acute osseous findings. IMPRESSION: Cardiomegaly with diffuse prominence of interstitium suggesting edema and patchy airspace opacities. There is also small right pleural effusion. Infectious/inflammatory process is not excluded. Dictated on workstation # [id number] Dict: 01/26/23 0741 Trans: 01/26/23 0743 CVB [id number] Interpreted by: GABI DIEGO MD Electronically signed by: Departure Impression Primary Impression: UTI (urinary tract infection) Qualified Codes: N30.01 - Acute cystitis with hematuria Additional Impressions: Bronchitis Atrial fibrillation with rapid ventricular response Disposition: HOME, SELF-CARE Condition: Stable Departure-Patient Inst. Decision time for Depature: 10:18 Referrals: SHANIQUE VEGA MD (PCP/Family) Primary Care Physician Patient Instructions: Bronchitis, Adult ED, Urinary Tract Infection, Adult ED Add. Discharge Instructions: Take the antibiotics, Augmentin 500 mg twice daily for 7 days starting tomorrow. She needs to continue all of her other home medications as prescribed by her family doctor. If fever, vomiting, change in mentation or any other concerning symptoms she needs to return to the emergency room for reevaluation. Follow up in 1 week with primary care physician. Scripts Amoxicillin/Potassium Clav (Amox Tr-K Clv 500-125 mg Tab) 500 Mg-125 Mg Tablet 1 EACH PO BID for 7 Days, #14 TAB Prov: DANITZA MARY MD 01/26/23 Copy Copies To 1: SHANIQUE VEGA MD, KATHRYN M MD Jan 26, 2023 07:06
--- NOTE | 2023-01-26 07:44 | Diagnostic Imaging Report ---
EXAM: CHEST 1 VIEW, AP/PA ONLY INDICATION: Fever. Cough. Shortness of breath. COMPARISON: 10/21/2022. FINDINGS: Cardiomegaly with diffuse prominence of interstitium and patchy airspace opacities. Small right pleural effusion. No pneumothorax. Sternotomy with CABG. No acute osseous findings. IMPRESSION: Cardiomegaly with diffuse prominence of interstitium suggesting edema and patchy airspace opacities. There is also small right pleural effusion. Infectious/inflammatory process is not excluded. Dictated by: Dictated on workstation # [id number]
[2023-01-26 07:50] LABS: BASOPHILS % (AUTO) 0 % (0-10); EOSINOPHILS # (AUTO) 0.1 10^3/uL (0.0-0.3); EOSINOPHILS % (AUTO) 2 % (0-10); HEMATOCRIT 30 % (35-52); HEMOGLOBIN 9.6 g/dL (11.5-16.0); LYMPHOCYTES # (AUTO) 1.3 10^3/uL (1.0-4.0); LYMPHOCYTES % (AUTO) 14 % (12-44); MEAN CORPUSCULAR HEMOGLOBIN 26 pg (25-34); MEAN CORPUSCULAR HGB CONC 32 g/dL (32-36); MEAN CORPUSCULAR VOLUME 82 fL (80-99); MEAN PLATELET VOLUME 9.8 fL (9.0-12.2); MONOCYTES % (AUTO) 10 % (0-12); NEUTROPHILS # (AUTO) 7.2 10^3/uL (1.8-7.8); NEUTROPHILS % (AUTO) 74 % (42-75); PLATELET COUNT 268 10^3/uL (130-400); WHITE BLOOD COUNT 9.6 10^3/uL (4.3-11.0)
[2023-01-26 07:59] LABS: ALBUMIN 3.1 GM/DL (3.2-4.5)
[2023-01-26 08:01] LABS: CALCIUM 8.8 MG/DL (8.5-10.1)
[2023-01-26 08:02] LABS: TOTAL PROTEIN 6.1 GM/DL (6.4-8.2)
[2023-01-26 08:04] LABS: BILIRUBIN,TOTAL 0.3 MG/DL (0.1-1.0); INR 1.3 (0.8-1.4); PROTHROMBIN TIME PATIENT 16.8 SEC (12.2-14.7)
[2023-01-26 08:06] LABS: CREATININE SERUM 0.61 MG/DL (0.60-1.30)
[2023-01-26 09:14] LABS: BILIRUBIN,URINE NEGATIVE (NEGATIVE); CLARITY,URINE CLOUDY; COLOR,URINE YELLOW; GLUCOSE, URINE (UA) NEGATIVE (NEGATIVE); KETONES,URINE NEGATIVE (NEGATIVE); LEUKOCYTE ESTERASE ,URINE 3+ (NEGATIVE); NITRITE,URINE NEGATIVE (NEGATIVE); PH,URINE 7.5 (5-9); PROTEIN,URINE TRACE (NEGATIVE)
[2023-01-26 09:41] LABS: BACTERIA,URINE LARGE /HPF
[2023-01-26 09:42] LABS: AMORPHOUS SEDIMENT,UR MOD AMOR PHOSPHATE /LPF
[2023-01-26] MEDS ORDERED: cefTRIAXone 1 GM PRE-MIX 50 ML IV ONE (10:00)
[2023-01-26] MEDS ORDERED: AMOX1TAB11 PO (10:20)
[2023-01-26 10:43] VITALS: BP 114/74
== END 2023-01-26 12:20 | disposition home or self-care (01) ==
LOC: EDUNIT# 06:48 → ER 06:49
DX: N39.0 Urinary tract infection, site not specified (principal); J40 Bronchitis, not specified as acute or chronic; I48.91 Unspecified atrial fibrillation; K43.9 Ventral hernia without obstruction or gangrene; Z79.01 Long term (current) use of anticoagulants; Z88.2 Allergy status to sulfonamides; Z20.822 Contact with and (suspected) exposure to COVID-19
CPT/HCPCS: 36415; 51702; 71045; 80053; 81000; 83605; 83880; 85025; 85610; 85730; 87040; 87077; 87088; 87186; 87636

== ENCOUNTER 2023-02-28 09:45 | Emergency (ER) | payer MEDICARE, MEDICAID ==
[~2023-02-28] VITALS: Ht 158 cm; Wt 78.0 kg
[~2023-02-28 09:45] MED LIST changes: +AMOX1TAB11 PO
--- NOTE | 2023-02-28 10:08 | ED Respiratory ---
General Chief Complaint: Respiratory Problems Stated Complaint: DIZZY | SOB Nursing Triage Note: PT ARRIVED PER EMS FROM [facility]. PT CO OF SOA, DIZZINESS. PT STATES HAS SOME CONGESTION. PT WEARS O2 @ 5L NORMALLY. PT SAT GOES UP WHEN O2 SWITCHED TO MOUTH. PT CHANGED TO OXY MASK SAT 95%. PT IS ALERT AND TALKING TO STAFF. PT HAS ANN CATH PRESENT AND CURRENTLY HAS UTI AND IS BEING TREATED W AMOXICILLIN.PT STATES HAS DECUBITUS ON COCCYX THAT IS SORE. Source: patient Exam Limitations: no limitations History of Present Illness Date Seen by Provider: Feb 28, 2023 Time Seen by Provider: 09:58 Initial Comments Patient is an 87-year-old female from a local long term via ambulance complaining of shortness of breath, cough and feeling poorly when she woke up this morning. She normally wears oxygen per nasal cannula at 5 L. Patient states that her cough and shortness of breath started 2 days ago. Per review of the long term records that accompany the patient she was started on Augmentin for a urinary tract infection yesterday. Patient has chronic indwelling suprapubic Ann catheter. She states it was just changed within the last week. She complains of pain to her buttocks due to a "sore" that they have been having a difficult time getting to heal. They just recently started putting on a new dressing. She feels congested. She is not nauseous. No diarrhea. Alert and oriented. No acute distress. Of note the patient is in atrial fibrillation on telemetry with a heart rate of 111-115. Blood pressure is good. Satting 95/96% on an OxyMask 5 L. Timing/Duration: other (2d) Severity: moderate Modifying Factors: Improves With Albuterol Inhaler, Improves With Albuterol Nebulizer Associated Symptoms: cough (with sputum), shortness of breath, other (dizziness) Allergies and Home Medications Allergies Coded Allergies: Sulfa (Sulfonamide Antibiotics) (Verified Allergy, Unknown, 04/16/19) diphenhydramine HCl (Verified Allergy, Unknown, 04/16/19) hydrochlorothiazide (Unverified Allergy, Unknown, 04/16/19) varenicline tartrate (Verified Allergy, Unknown, 04/16/19) Patient Home Medication List Home Medication List Reviewed: Yes Acetaminophen (Acetaminophen) 325 Mg Tablet, 650 MG PO Q4H PRN for PAIN-MILD (1- 4) Prescribed by: BARBER CRONIN on 10/31/221111 Acetaminophen (Tylenol Extra Strength) 500 Mg Tablet, 500 MG PO TID Prescribed by: BARBER CRONIN on 10/31/221111 Alprazolam (Alprazolam) 0.5 Mg Tablet, 0.5 MG PO Q4H PRN for ANXIETY Prescribed by: BARBER CRONIN on 10/31/221111 Amoxicillin/Potassium Clav (Amox Tr-K Clv 500-125 mg Tab) 500 Mg-125 Mg Tablet, 1 EACH PO BID Prescribed by: DANITZA MARY on 01/26/23 1020 Apixaban (Eliquis) 2.5 Mg Tablet, 2.5 MG PO BID Prescribed by: BARBER CRONIN on 10/31/221111 Benzonatate (Tessalon Perles) 100 Mg Capsule, 100 MG PO TID Prescribed by: BARBER CRONIN on 10/31/221111 Budesonide/Formoterol Fumarate (Symbicort 160-4.5 Mcg Inhaler) 160 Mcg-4.5 Mcg/Actuation Hfa.aer.ad, 2 PUFF IH BID Prescribed by: BARBER CRONIN on 10/31/221111 Diltiazem HCl (Diltiazem 24Hr ER) 180 Mg Cap.er.24h, 180 MG PO BID Prescribed by: BARBER CRONIN on 10/31/221111 Duloxetine HCl (Duloxetine HCl) 30 Mg Capsule.dr, 30 MG PO BID Prescribed by: BARBER CRONIN on 10/31/221111 Furosemide (Furosemide) 40 Mg Tablet, 40 MG PO DAILY Prescribed by: BARBER CRONIN on 10/31/221111 Gabapentin (Gabapentin) 100 Mg Capsule, 100 MG PO DAILY Prescribed by: BARBER CRONIN on 10/31/221111 Gabapentin (Gabapentin) 100 Mg Capsule, 200 MG PO 1200 Prescribed by: BARBER CRONIN on 10/31/221111 Gabapentin (Gabapentin) 600 Mg Tablet, 600 MG PO HS Prescribed by: BARBER CRONIN on 10/31/221111 Guaifenesin/Dextromethorphan (Robitussin Cough-Chest Dm Liq) 100 Mg-5 Mg/5 Ml Liquid, 10 ML PO Q4H PRN for COUGH Prescribed by: BARBER CRONIN on 10/31/221111 Ipratropium/Albuterol Sulfate (Iprat-Albut 0.5-3(2.5) mg/3 ml) 0.5 Mg-3 Mg (2.5 Mg Base)/3 Ml Ampul.neb, 3 ML INH RTQ2H PRN for dyspnea, wheezing Prescribed by: BARBER CRONIN on 10/31/221111 Lactobacillus Rhamnosus GG (Culturelle) 10 Billion Cell Capsule, 1 EACH PO DAILY Prescribed by: BARBER CRONIN on 10/31/221111 Lactulose (Lactulose) 10 Gram/15 Ml Solution, 15 ML PO BID PRN for CONSTIPATION- 3RD LINE Prescribed by: BARBER CRONIN on 10/31/221111 Lidocaine (Lidocaine 5% Patch) 5 % Adh..patch, 1 EACH TP DAILY PRN for NERVE PAIN Prescribed by: BARBER CRONIN on 10/31/221111 Loperamide HCl (Imodium A-D) 2 Mg Capsule, 2 MG PO QID PRN for LOOSE STOOLS Prescribed by: BARBER CRONIN on 10/31/221111 Mag Hydrox/Al Hydrox/Simeth (Antacid Anti-Gas Liquid) 400 Mg-400 Mg-40 Mg/5 Ml Oral.susp, 30 ML PO Q4H PRN for INDIGESTION Prescribed by: BARBER CRONIN on 10/31/221111 Magnesium Hydroxide (Milk of Magnesia) 2,400 Mg/10 Ml Oral.susp, 30 ML PO DAILY PRN for CONSTIPATION-7TH LINE Prescribed by: BARBER CRONIN on 10/31/221111 Metoprolol Succinate (Metoprolol Succinate) 25 Mg Tab.er.24h, 25 MG PO HS Prescribed by: BARBER CRONIN on 10/31/221111 Nystatin (Nystatin) 10 Billion Unit Powder.ea., 1 APPLIC TP BID Prescribed by: BARBER CRONIN on 10/31/221111 Pantoprazole Sodium (Pantoprazole Sodium) 40 Mg Tablet.dr, 40 MG PO DAILY Prescribed by: BARBER CRONIN on 10/31/221111 Potassium Chloride (Potassium Chloride) 10 Meq Tab.er.prt, 10 MEQ PO DAILY Prescribed by: BARBER CRONIN on 10/31/221111 Prednisone (Prednisone) 10 Mg Tab.ds.pk, 10 MG PO DAILY Prescribed by: BARBER CRONIN on 10/29/221116 Propylene Glycol (Systane Complete) 0.6 % Drops, 1 DROP OU TID Prescribed by: BARBER CRONIN on 10/31/221111 Risperidone (Risperidone) 0.5 Mg Tablet, 0.5 MG PO Q12H Prescribed by: BARBER CRONIN on 10/31/221111 Simvastatin (Simvastatin) 40 Mg Tablet, 40 MG PO HS Prescribed by: BARBER CRONIN on 10/31/221111 Tamsulosin HCl (Flomax) 0.4 Mg Cap, 0.4 MG PO DAILY Prescribed by: BARBER CRONIN on 10/31/221111 [Flavoxate] 100MG TAB, 200 MG PO TID Prescribed by: BARBER CRONIN on 10/31/221111 Review of Systems Review of Systems Constitutional: see HPI EENTM: nose congestion Respiratory: cough, phlegm, short of breath Cardiovascular: no symptoms reported Gastrointestinal: no symptoms reported Genitourinary: no symptoms reported Musculoskeletal: no symptoms reported Skin: other (sore to buttocks per patient) Past Xebsxqe-Bmabyx-Erdsvb Hx Immunizations Up To Date Tetanus Booster (TDap): Unknown PED Vaccines UTD: No First/Initial COVID19 Vaccinat: NOV Second COVID19 Vaccination Robert: Nov COVID19 Vaccination Date: NOV Seasonal Allergies Seasonal Allergies: No Past Medical History Surgery/Hospitalization HX: pmh: uti, htn, osteoarthritis, dm 2, copd, disorder, gerd, hyperlipidemia, dysphagia, afib, cad, Surgeries: Yes Adenoidectomy, Appendectomy, Bladder Surgery, Cardiac, CABG, Gallbladder, Hysterectomy, Joint Replacement, Orthopedic, Tonsillectomy Respiratory: Yes Asthma, COPD Currently Using CPAP: No Currently Using BIPAP: No Cardiac: Yes (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, 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, Atrial Fibrillation, Coronary Artery Disease, High Cholesterol, Hypertension Neurological: Yes (HAD BRAIN SURGERY FOR ANEURYSM 2008, dysphagia) Reproductive Disorders: Yes Female Reproductive Disorders: Endometriosis ADHESION TESTER History: Hysterectomy Sexually Transmitted Disease: No Genitourinary: Yes (suprapubic catheter) UTI-Chronic Gastrointestinal: Yes Gastroesophageal Reflux, Chronic Constipation Musculoskeletal: Yes ( BILAT ROTATOR CUFF SURGERY) Degenerate Disk Disease, Arthritis, Chronic Back Pain Endocrine: Yes Diabetes, Non-Insulin dep Cataract Loss of Vision: Denies Hearing Impairment: Denies Cancer: No Psychosocial: Yes (panic disorder) Anxiety, Depression Integumentary: No Blood Disorders: No Adverse Reaction/Blood Tranf: No Family Medical History Cancer 09 SISTER Cancer of colon Cataract 03 MOTHER, Onset:Unknown Family history: Allergy 03 FATHER, Onset:Unknown 03 MOTHER, Onset:Unknown Family history: Arthritis 03 FATHER, Onset:Unknown 03 MOTHER, Onset:Unknown 09 SISTER, Onset:Unknown Family history: Cardiovascular disease 03 FATHER, Onset:Unknown 03 MOTHER, Onset:Unknown 09 BROTHER, Onset:Unknown 09 SISTER, Onset:Unknown Family history: Diabetes mellitus 03 MOTHER, Onset:Unknown Family history: Gastrointestinal disease 03 FATHER, Onset:Unknown Family history: Hypertension 03 MOTHER, Onset:Unknown Family history: Osteoporosis 03 MOTHER, Onset:Unknown Hearing loss 03 FATHER, Onset:Unknown Heart disease 03 FATHER, Onset:Unknown 03 MOTHER, Onset:Unknown 09 BROTHER, Onset:Unknown Hypercholesterolemia 03 MOTHER, Onset:Unknown Malignant neoplasm of lung 09 SISTER, Onset:Unknown Myocardial infarction 09 BROTHER, Onset:Unknown Parkinson's disease Stroke 03 FATHER, Onset:Unknown Thyroid disease No Family History of: Abdominal aortic aneurysm Gillespie's disease Alcoholism Aphasia Chest pain Congenital heart disease Congestive heart failure Cystic fibrosis Dementia Dysphagia Family history: Alzheimer's disease Family history: Asthma Family history: Breast disease Family history: Coronary thrombosis Family history: Glaucoma Family history: Thyroid disorder Headache Hereditary disease History of - anemia History of - disorder History of - respiratory disease History of drug abuse Human immunodeficiency virus (HIV) seropositivity Infertile Kidney disease Prostate cancer Psychotic disorder Seizure disorder Tuberculosis Visual impairment Heart Disease, Diabetes Physical Exam Vital Signs - First Documented Capillary Refill : Less Than 3 Seconds Height: 5'2.00" Weight: 165lbs. 7.0oz. 74.269289ri; 31.00 BMI Method:Stated General Appearance: WD/WN, no apparent distress, obese Eyes: Bilateral Eye Normal Inspection, Bilateral Eye PERRL, Bilateral Eye EOMI HEENT: PERRL/EOMI Respiratory: lungs clear, normal breath sounds, no respiratory distress, no accessory muscle use Cardiovascular: tachycardia (111), irregularly irregular Gastrointestinal: normal bowel sounds, soft, tenderness (at ventral hernia, Rt lower abdomen), other (suprapubic ann catheter in place, foul smell from area) Extremities: normal range of motion, normal inspection Neurologic/Psychiatric: alert, oriented x 3 Skin: normal color, warm/dry, other (stage 1 decubitus, blanchable, intact skin.) Focused Exam Lactate Level 02/28/23 09:55: Lactic Acid Level 1.18 Lactic Acid Level Laboratory Tests Test 02/28/23 09:55 Lactic Acid Level 1.18 MMOL/L (0.50-2.00) Progress/Results/Core Measures Suspected Sepsis SIRS Temperature: Pulse: 108 Respiratory Rate: 33 Laboratory Tests 02/28/23 09:55: White Blood Count 6.9 Blood Pressure 96 /62 Mean: 73 02/28/23 09:55: Lactic Acid Level 1.18 Laboratory Tests 02/28/23 09:55: Creatinine 0.67, INR Comment 1.3, Platelet Count 319, Total Bilirubin 0.4 Results/Orders Lab Results Laboratory Tests Test 02/28/23 09:55 02/28/23 11:07 Range/Units White Blood Count 6.9 4.3-11.0 10^3/uL Red Blood Count 4.01 3.80-5.11 10^6/uL Hemoglobin 10.2 L 11.5-16.0 g/dL Hematocrit 33 L 35-52 % Mean Corpuscular Volume 82 80-99 fL Mean Corpuscular Hemoglobin 25 25-34 pg Mean Corpuscular Hemoglobin Concent 31 L 32-36 g/dL Red Cell Distribution Width 15.6 H 10.0-14.5 % Platelet Count 319 130-400 10^3/uL Mean Platelet Volume 10.7 9.0-12.2 fL Immature Granulocyte % (Auto) 0 % Neutrophils (%) (Auto) 63 42-75 % Lymphocytes (%) (Auto) 25 12-44 % Monocytes (%) (Auto) 8 0-12 % Eosinophils (%) (Auto) 3 0-10 % Basophils (%) (Auto) 1 0-10 % Neutrophils # (Auto) 4.4 1.8-7.8 10^3/uL Lymphocytes # (Auto) 1.7 1.0-4.0 10^3/uL Monocytes # (Auto) 0.6 0.0-1.0 10^3/uL Eosinophils # (Auto) 0.2 0.0-0.3 10^3/uL Basophils # (Auto) 0.0 0.0-0.1 10^3/uL Immature Granulocyte # (Auto) 0.0 0.0-0.1 10^3/uL Prothrombin Time 16.7 H 12.2-14.7 SEC INR Comment 1.3 0.8-1.4 Activated Partial Thromboplast Time 45 H 24-35 SEC Sodium Level 137 135-145 MMOL/L Potassium Level 3.5 L 3.6-5.0 MMOL/L Chloride Level 98 98-107 MMOL/L Carbon Dioxide Level 27 21-32 MMOL/L Anion Gap 12 5-14 MMOL/L Blood Urea Nitrogen 10 7-18 MG/DL Creatinine 0.67 0.60-1.30 MG/DL Estimat Glomerular Filtration Rate 86 BUN/Creatinine Ratio 15 Glucose Level 141 H 70-105 MG/DL Lactic Acid Level 1.18 0.50-2.00 MMOL/L Calcium Level 9.3 8.5-10.1 MG/DL Corrected Calcium 9.8 8.5-10.1 MG/DL Total Bilirubin 0.4 0.1-1.0 MG/DL Aspartate Amino Transf (AST/SGOT) 12 5-34 U/L Alanine Aminotransferase (ALT/SGPT) 10 0-55 U/L Alkaline Phosphatase 70 40-136 U/L Total Protein 6.7 6.4-8.2 GM/DL Albumin 3.4 3.2-4.5 GM/DL Urine Color YELLOW Urine Clarity CLEAR Urine pH 7.0 5-9 Urine Specific [place] <=1.005 1.016-1.022 Urine Protein NEGATIVE NEGATIVE Urine Glucose (UA) NEGATIVE NEGATIVE Urine Ketones NEGATIVE NEGATIVE Urine Nitrite POSITIVE H NEGATIVE Urine Bilirubin NEGATIVE NEGATIVE Urine Urobilinogen 0.2 < = 1.0 MG/DL Urine Leukocyte Esterase 2+ H NEGATIVE Urine RBC (Auto) NEGATIVE NEGATIVE Urine RBC RARE /HPF Urine WBC 5-10 H /HPF Urine Squamous Epithelial Cells 2-5 /HPF Urine Crystals PRESENT H /LPF Urine Amorphous Sediment FEW VI PHOSPHATE H /LPF Urine Bacteria MODERATE H /HPF Urine Casts NONE /LPF Urine Mucus NEGATIVE /LPF Urine Culture Indicated YES My Orders Orders - DANITZA MARY MD Cbc With Automated Diff (02/28/23 10:03) Comprehensive Metabolic Panel (02/28/23 10:03) Blood Culture (02/28/23 10:03) Sputum Culture (02/28/23 10:03) Urinalysis (02/28/23 10:03) Urine Culture (02/28/23 10:03) Protime With Inr (02/28/23 10:03) Partial Thromboplastin Time (02/28/23 10:03) Chest 1 View, Ap/Pa Only (02/28/23 10:03) Ed Iv/Invasive Line Start (02/28/23 10:03) Ed Iv/Invasive Line Start (02/28/23 10:03) Vital Signs Adult Sepsis Patie Q15M (02/28/23 10:03) O2 (02/28/23 10:03) Remove Rings In Anticipation O (02/28/23 10:03) Lactic Acid Analyzer (02/28/23 10:03) Vital Signs/I&O 02/28/23 02/28/23 02/28/23 09:51 09:51 09:51 Temp 36.4 Pulse 108 Resp 33 B/P (MAP) 96/62 (73) Pulse Ox 95 97 O2 Delivery OxyMask Nasal Cannula O2 Flow Rate 5.00 5.00 Capillary Refill : Less Than 3 Seconds Blood Pressure Mean: 73 Progress Note : Time: 12:32 Progress Note Patient seen and examined by me. Evaluation today includes physical exam, "sepsis work-up" to include CBC, chem 12, coags, lactic acid, blood cultures, urinalysis, chest x-ray. Pertinent physical exam findings, well-developed well- nourished elderly female in no acute distress. Satting well, 96% on simple facemask at 5 L. No increased work of breathing or respiratory distress. She does have faint bilateral expiratory wheeze. Slightly tachycardic 111 and atrial fibrillation. She has a soft abdomen with soft ventral hernia. Stage I decubitus ulcer. Differential diagnosis based on history and physical exam pneumonia, congestive failure, sepsis secondary to UTI or pneumonia. Labs independently interpreted by me. CBC is normal, hemoglobin of 10. Chemistry is normal -potassium 3.5, glucose 141 coags are appropriate secondary to anticoagulation, PT 16.7 PTT 45. Lactic acid is less than 2. Urinalysis consistent with UTI with white blood cells, red blood cells and nitrite positive. Chest x-ray without focal infiltrate or effusion. Patient is treated in the emergency room with supplemental oxygen via facemask at her normal 4 to 5 L. She does have a coarse wet cough. Review of her long term records reveals that she was started on Augmentin for her UTI yesterday. I reviewed her most recent visit to the emergency room, 1 month ago January 22. She did have a UTI at that time which grew out multiple bacteria Proteus, staph and Enterococcus all greater than 100,000 colony-forming units. Her Proteus is sensitive to Augmentin which she is already on. Staph and Enterococcus both sensitive to Macrobid. We will add these to her antibiotic regimen. She has no clinical or objective findings to suggest the need for inpatient admission for treatment of her urinary tract infection. Low clinical suspicion for congestive failure as the patient has no lower extremity edema and no increased oxygen requirement above her baseline. She does have upper airway congestion which I think is inhibiting her ability to breathe through her nose on her nasal cannula. Patient will be sent back to the long term. Diagnostic Imaging Diagonstic Imaging: Xray Plain Films/CT/US/NM/MRI: chest Comments NAME: JUL[facility] REYES [facility] REC#: [id number] PT STATUS: REG ER : 1935 PHYSICIAN: DANITZA MARY MD ADMIT DATE: 02/28/23/ER Draft Date of Exam:02/28/23 CHEST 1 VIEW, AP/PA ONLY INDICATION: Dizziness and hypoxia Frontal chest obtained at 1031 a.m. and compared to 01/26/2023. There is unchanged cardiomegaly and poststernotomy change. There is unchanged central vascular congestion with chronic interstitial changes. There is no new consolidation or pleural fluid or pneumothorax. IMPRESSION: Cardiomegaly with chronic central vascular congestion and chronic interstitial changes appearing similar to the previous study. Dictated on workstation # [id number] Dict: 02/28/23 1033 Trans: 02/28/23 1038 JEFFREY [id number] Interpreted by: WALLY POND MD Electronically signed by: Departure Impression Primary Impression: UTI (urinary tract infection) Qualified Codes: N39.0 - Urinary tract infection, site not specified Additional Impression: Congestion of respiratory tract Disposition: HOME, SELF-CARE Condition: Stable Departure-Patient Inst. Decision time for Depature: 12:28 Referrals: SHANIQUE VEGA MD (PCP/Family) Primary Care Physician Patient Instructions: Urinary Tract Infection, Adult (DC), Cough, Runny Nose, and the Common Cold (DC) Add. Discharge Instructions: I am adding a second antibiotic to your treatment for urinary tract infection. You will also need to be on Macrobid twice daily for 7 days. Drink lots of fluids to stay well-hydrated. Follow-up All discharge instructions reviewed with patient and/or family. Voiced understanding. Scripts Nitrofurantoin Monohyd/M-Cryst (Macrobid 100 mg Capsule) 100 Mg Capsule 1 TAB PO BID for 7 Days, #14 CAP Prov: DANITZA MARY MD 02/28/23 Copy Copies To 1: SHANIQUE VEGA MD, KATHRYN M MD Feb 28, 2023 10:07
[2023-02-28 10:14] LABS: ALBUMIN 3.4 GM/DL (3.2-4.5)
[2023-02-28 10:15] LABS: BASOPHILS % (AUTO) 1 % (0-10); EOSINOPHILS # (AUTO) 0.2 10^3/uL (0.0-0.3); EOSINOPHILS % (AUTO) 3 % (0-10); HEMATOCRIT 33 % (35-52); HEMOGLOBIN 10.2 g/dL (11.5-16.0); LYMPHOCYTES # (AUTO) 1.7 10^3/uL (1.0-4.0); LYMPHOCYTES % (AUTO) 25 % (12-44); MEAN CORPUSCULAR HEMOGLOBIN 25 pg (25-34); MEAN CORPUSCULAR HGB CONC 31 g/dL (32-36); MEAN CORPUSCULAR VOLUME 82 fL (80-99); MEAN PLATELET VOLUME 10.7 fL (9.0-12.2); MONOCYTES # (AUTO) 0.6 10^3/uL (0.0-1.0); MONOCYTES % (AUTO) 8 % (0-12); NEUTROPHILS # (AUTO) 4.4 10^3/uL (1.8-7.8); NEUTROPHILS % (AUTO) 63 % (42-75); PLATELET COUNT 319 10^3/uL (130-400); POTASSIUM 3.5 MMOL/L (3.6-5.0); WHITE BLOOD COUNT 6.9 10^3/uL (4.3-11.0)
[2023-02-28 10:16] LABS: CALCIUM 9.3 MG/DL (8.5-10.1)
[2023-02-28 10:17] LABS: TOTAL PROTEIN 6.7 GM/DL (6.4-8.2)
[2023-02-28 10:19] LABS: BILIRUBIN,TOTAL 0.4 MG/DL (0.1-1.0)
[2023-02-28 10:21] LABS: CREATININE SERUM 0.67 MG/DL (0.60-1.30)
[2023-02-28 10:22] LABS: INR 1.3 (0.8-1.4); PROTHROMBIN TIME PATIENT 16.7 SEC (12.2-14.7)
--- NOTE | 2023-02-28 10:38 | Diagnostic Imaging Report ---
INDICATION: Dizziness and hypoxia Frontal chest obtained at 1031 a.m. and compared to 01/26/2023. There is unchanged cardiomegaly and poststernotomy change. There is unchanged central vascular congestion with chronic interstitial changes. There is no new consolidation or pleural fluid or pneumothorax. IMPRESSION: Cardiomegaly with chronic central vascular congestion and chronic interstitial changes appearing similar to the previous study. Dictated by: Dictated on workstation # [id number]
[2023-02-28 11:14] LABS: BILIRUBIN,URINE NEGATIVE (NEGATIVE); CLARITY,URINE CLEAR; COLOR,URINE YELLOW; GLUCOSE, URINE (UA) NEGATIVE (NEGATIVE); KETONES,URINE NEGATIVE (NEGATIVE); LEUKOCYTE ESTERASE ,URINE 2+ (NEGATIVE); NITRITE,URINE POSITIVE (NEGATIVE); PROTEIN,URINE NEGATIVE (NEGATIVE)
[2023-02-28 11:45] LABS: BACTERIA,URINE MODERATE /HPF; RBC,URINE RARE /HPF
[2023-02-28 11:46] LABS: AMORPHOUS SEDIMENT,UR FEW AMOR PHOSPHATE /LPF
[2023-02-28] MEDS ORDERED: NITR-65 PO (12:32)
[2023-02-28 13:12] VITALS: BP 107/75
[2023-03-02] MEDS ORDERED: CEFD300C3 PO (18:19)
== END 2023-02-28 13:12 | disposition home or self-care (01) ==
LOC: EDUNIT# 09:48 → ER 09:49
DX: J98.8 Other specified respiratory disorders (principal); N39.0 Urinary tract infection, site not specified; I48.91 Unspecified atrial fibrillation; L89.151 Pressure ulcer of sacral region, stage 1; E66.9 Obesity, unspecified; E11.9 Type 2 diabetes mellitus without complications; Z88.1 Allergy status to other antibiotic agents; Z99.81 Dependence on supplemental oxygen; Z68.31 Body mass index [BMI] 31.0-31.9, adult
CPT/HCPCS: 36415; 71045; 80053; 81000; 83605; 85025; 85610; 85730; 87040; 87077; 87088; 87186

== ENCOUNTER → 2023-07-11 | Outpatient (CLI) | payer MEDICARE, MEDICAID | LOC: LABNPT 18:40 | PROVIDERS: ATTEND Internal Medicine | DX: J44.9 Chronic obstructive pulmonary disease, unspecified (principal); R11.0 Nausea | CPT/HCPCS: 87804 ==